=== PATIENT | male | born 1950 | race Caucasian/White ===

== ENCOUNTER → 2016-12-26 | Outpatient (CLI) | payer OTHER ==
[~2016-12-26] MED LIST: ADAL1KIT SQ; CITA10TA4 PO; FERR325T5 PO; OMEP20CA9 PO; TAMS0.4C38 PO
--- NOTE | 2016-12-26 17:23 | DIAGNOSTIC IMAGING REPORT ---
ULTRASOUND RIGHT LOWER EXTREMITY VENOUS CLINICAL HISTORY: Right leg pain and swelling. COMPARISON STUDY: No priors. TECHNIQUE: Real-time, grayscale, and color Doppler sonography of the deep veins of the right lower extremity was performed from the inguinal crease to the calf. Compression and augmentation were utilized. FINDINGS: There is no sonographic evidence of deep venous thrombosis identified in the right lower extremity. The common femoral, superficial femoral, and popliteal veins are patent and normally compressible. The greater saphenous vein and the profunda femoris vein at the junction with the common femoral vein are clear. The visualized calf veins are patent. IMPRESSION: There is no sonographic evidence of deep venous thrombosis identified in the right lower extremity. Electronically signed by: Scott Yepez M.D. 12/26/2016 5:21 PM Dictated Date/Time: 12/26/2016 5:21 PM
== END | disposition home or self-care (01) ==
LOC: C.ULTR 16:38
PROVIDERS: ATTEND Internal Medicine
DX: M79.661 Pain in right lower leg (principal)

== ENCOUNTER → 2017-01-08 | Outpatient (CLI) | payer OTHER ==
--- NOTE | 2017-01-08 15:51 | DIAGNOSTIC IMAGING REPORT ---
ULTRASOUND RIGHT LOWER EXTREMITY VENOUS CLINICAL HISTORY: Right leg pain and swelling. Palpable lump. COMPARISON STUDY: Right lower extremity venous ultrasound dated 12/26/2016. TECHNIQUE: Real-time, grayscale, and color Doppler sonography of the deep veins of the right lower extremity was performed from the inguinal crease to the calf. Compression and augmentation were utilized. FINDINGS: There is no sonographic evidence of deep venous thrombosis identified in the right lower extremity. The common femoral, superficial femoral, and popliteal veins are patent and normally compressible. The greater saphenous vein and the profunda femoris vein at the junction with the common femoral vein are clear. The visualized calf veins are patent. There is a small complex nonvascular collection identified in the right calf at the indicated site of interest. This measures 8.4 x 2.0 x 2.8 cm. Mild subcutaneous soft tissue edema is present in the calf. IMPRESSION: 1. There is no sonographic evidence of deep venous thrombosis identified in the right lower extremity. 2. There is a complex nonvascular fluid collection identified in the right calf at the indicated site of interest measuring 8.4 x 2.0 x 2.8 cm. The appearance is typical for a hematoma. Clinical follow-up to resolution is recommended. Electronically signed by: Scott Yepez M.D. 01/08/2017 3:49 PM Dictated Date/Time: 01/08/2017 3:48 PM
--- NOTE | 2017-01-08 15:52 | DIAGNOSTIC IMAGING REPORT ---
ARTERIAL DOPPLER ULTRASOUND OF THE RIGHT LOWER EXTREMITY CLINICAL HISTORY: Right leg pain and swelling. COMPARISON STUDY: No previous studies for comparison. FINDINGS: Brachial arm systolic pressures were 144 mmHg on the right and 139 mmHg on the left. Posterior tibial pressures were 134 mmHg on the right and 165 mmHg on the left. Dorsalis pedis pressures were measured 136 mmHg on the right and 153 mmHg on the left. This yields ankle arm indices of 0.9 for the right and 1.2 on the left. There is triphasic flow within the right common femoral, superficial femoral and popliteal arteries. There is biphasic flow within the anterior tibial. There is mixed biphasic and triphasic flow within the posterior tibial and peroneal. No high velocity jets were delineated. IMPRESSION: No evidence of hemodynamically significant right lower extremity arterial stenosis. Electronically signed by: Myles Yarbrough M.D. 01/08/2017 3:50 PM Dictated Date/Time: 01/08/2017 3:48 PM
--- NOTE | 2017-01-15 13:03 | CODING QUERY MEDICAL NECESSITY ---
SUPPORTING DIAGNOSIS NEEDED A supporting diagnosis is required for the test/procedure performed on this patient in order for us to be reimbursed by the patient's insurance. Please provide a supporting diagnosis for the following test/procedure listed below next to the test name along with your signature. *If there is no additional diagnosis for this patient that would support the following test/procedure please document that below next to the test/procedure. Test(s)/Procedure(s) that require a supporting diagnosis: * VENOUS DOPPLER LOWER EXTREMITY DIAGNOSIS: * DOS:01/08/17 Provider Signature: Date: Thank you Vicki Urbina Health Information Management Once completed, please kindly fax back to [phone] For questions please call [phone]
== END | disposition home or self-care (01) ==
LOC: C.ULTR 14:07
PROVIDERS: ATTEND Orthopaedic Surgery Sports Medicine
DX: M79.89 Other specified soft tissue disorders (principal); R93.8 Abnormal findings on diagnostic imaging of other specified body structures; M79.606 Pain in leg, unspecified

== ENCOUNTER 2020-03-24 09:26 | Inpatient (IN) ==
[2020-03-24 10:05] LABS: Basophils # (auto) 0.02 K/uL (0-0.2); Basophils % (auto) 0.2 %; Eosinophils # (auto) 0.18 K/uL (0-0.5); Eosinophils % (auto) 1.6 %; Hematocrit (blood only) 23.4 % (42-52); Immature Granulocytes % (auto) 0.9 %; Lymphocytes # (auto) 1.45 K/uL (1.2-3.4); Lymphocytes % (auto) 12.5 %; Mean Corpuscular Hemoglobin 25.5 pg (25-34); Mean Corpuscular Hgb Conc 29.9 g/dL (32-36); Mean Corpuscular Volume 85.4 fL (80-100); Mean Platelet Volume 10.1 fL (7.4-10.4); Monocytes # (auto) 0.61 K/uL (0.11-0.59); Monocytes % (auto) 5.3 %; Neutrophils # (auto) 9.23 K/uL (1.4-6.5); Neutrophils % (auto) 79.5 %; Nucleated RBC # (auto) 0.06 K/uL (0-0); Nucleated RBC % (auto) 0.5 %; Platelet Count 163 K/uL (130-400); RDW Coefficient of Variation 18.2 % (11.5-14.5); RDW Standard Deviation 51.2 fL (36.4-46.3); Red Blood Count 2.74 M/uL (4.7-6.1); White Blood Count 11.59 K/uL (4.8-10.8)
[2020-03-24 10:21] LABS: Albumin Level 2.8 gm/dl (3.4-5.0); BUN Creatinine Ratio 29.7 (10-20); Calcium 8.6 mg/dl (8.5-10.1); Creatinine Clr Calc Pharmacy 40.9 ml/min; Est GFR (African American) 44.7; Est GFR (Non-African American) 38.6; Potassium 4.1 mmol/L (3.5-5.1)
[2020-03-24 10:24] LABS: Albumin Globulin Ratio 0.6 (0.9-2); Bilirubin,Total 1.2 mg/dl (0.2-1); Globulin 5.1 gm/dl (2.5-4.0); Total Protein 7.9 gm/dl (6.4-8.2)
[2020-03-24 10:25] LABS: Polychromasia 1+; Tear Drop Cells 1+
[2020-03-24 10:26] LABS: iSTAT Creatinine 1.7 mg/dl (0.6-1.3); iSTAT Hemoglobin 7.1 g/dl (14.0-18.0); iSTAT Ionized Calcium 1.22 mmol/l (1.12-1.32); iSTAT Potassium 4.1 mmol/L (3.3-5.0)
[2020-03-24 10:29] LABS: INR 1.1 (0.9-1.1); Partial Thromboplastin Ratio 0.8; Partial Thromboplastin Time 22.4 Seconds (21.0-31.0); Prothrombin Time 11.9 Seconds (9.0-12.0)
--- NOTE | 2020-03-24 10:44 | Emergency Department Note ---
History of Present Illness General Chief complaint: Referred by Doctor Stated complaint: SOB, LACK OF ENERGY, IRON LOW Source: patient Mode of arrival: ambulatory Limitations: no limitations History of Present Illness Provider complaint: "my iron is low" Onset (ago): week(s) 3 This 69-year-old male patient with significant past medical history of esophageal varices and [place] presents to the emergency department today, ambulatory, as a referral from his PCP for evaluation of anemia. The patient states over the past several weeks, his PCP has been monitoring his blood counts and iron levels and have noted them to be dropping. He states he was contacted and advised that his hemoglobin was "less than 6" and told to come to the ED for a blood transfusion. The patient reports dyspnea with exertion for the past several weeks and excessive fatigue. He states 1 week ago while taking the trash out, he noticed significant palpitations, but these resolved with rest. The patient states he is unclear of the etiology of the anemia and has never had a blood transfusion before. He states he was supposed to "do a stool test", but has not done this yet. He does report history of esophageal varices, but denies any hematemesis or hemoptysis at this time. The patient states his PCP has been adjusting his medications, but he is unclear of which medications are being adjusted at this time. Patient denies any chest pain, nausea, vomiting, abdominal pain, melena, hematochezia, diarrhea, constipation, or other associated symptoms. He denies fever or recent illness. Home Medications Home Medications Medication Instructions Recorded Confirmed Type furosemide [Lasix] 20 mg PO QAM 02/04/20 03/24/20 History spironolactone [Aldactone] 50 mg PO QAM 02/04/20 03/24/20 History adalimumab [Humira Pen] 40 mg SUBCUT UD 03/24/20 03/24/20 History cholecalciferol (vitamin D3) 25 mcg PO HS 03/24/20 03/24/20 History [Vitamin D3] citalopram [Celexa] 10 mg PO QAM 03/24/20 03/24/20 History ferrous sulfate 325 mg PO BID 03/24/20 03/24/20 History glimepiride [Amaryl] 2 mg PO BID 03/24/20 03/24/20 History lactulose 10 g PO TID PRN 03/24/20 03/24/20 History rvizafnrtmsd-dcyefmta-ugccub 1 tab PO HS 03/24/20 03/24/20 History [Multivitamin 50 Plus] omeprazole 40 mg PO QAM 03/24/20 03/24/20 History propranolol 40 mg PO BID 03/24/20 03/24/20 History Allergies Allergy/AdvReac Type Severity Reaction Status Date / Time No Known Allergies Allergy Mild Verified 03/24/20 11:35 Past Med/Surg History Medical History Cirrhosis (Acute) 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 Esophageal varices (Acute) GAVE (gastric antral vascular ectasia) GERD (gastroesophageal reflux disease) History of abdominal paracentesis (Acute) Hypertension (Acute) Psoriasis (Acute) T2DM (type 2 diabetes mellitus) Surgical History (Updated 03/24/20 @ 13:03 by Maura Gastelum PA-C) History of colonoscopy with polypectomy Last in 2015 History of esophagogastroduodenoscopy (EGD) last 06/2019 revealed grade 2 esophageal varices, grade 1 gastric varices History of tonsillectomy and adenoidectomy (Acute) Family History Father Colorectal cancer, Onset Age: 63 Mother Lung cancer 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 Preferred Language: Icelandic Communication Ability: Effective Contact Assembler Required: No Beliefs That Will Affect Care: None Current Living Situation: Spouse Other Information That Helps Us Care for You: No Feels Safe at Home: Yes Safety Concerns: Feels Safe At This Time Smoking Status: Never smoker Do You Dip or Chew Tobacco: No ; Second Hand Exposure: No ; Tobacco Cessation Education Requested by Patient: No Hx Alcohol Use: No Hx Substance Use: No Review of Systems A total of 10 systems reviewed and were otherwise negative Physical Exam Vital Signs Vital Signs - 24 hr 03/24/20 09:29 03/24/20 10:43 Temperature 36.6 C Temperature Source Oral Pulse Rate 60 57 L Pulse Rate [Apical] 57 L Pulse Rhythm Regular Pulse Rhythm [Apical] Regular Pulse Strength [Apical] Normal Respiratory Rate 18 18 Respiratory Effort / Characteristics Non-Labored Spontaneous Non-Labored Spontaneous Respiratory Depth Normal Respiratory Pattern Regular Blood Pressure 105/63 Blood Pressure [Right Arm] 116/61 Blood Pressure Mean 77 Blood Pressure Mean [Right Arm] 79 Blood Pressure Position [Right Arm] Sitting Pulse Oximetry 100 98 Oxygen Delivery Method Room Air Room Air Sepsis Recent Fever Within 48 Hours No Sepsis New/Unexplained Change in Mental Status No Sepsis Action Taken by Nursing No Action Required VITALS: Vitals are noted on the nurse's note and reviewed by myself. Patient has not tachypneic, tachycardic, or hypoxic. Normal blood pressure. GENERAL: This is a 69-year-old white male, in no acute distress, nondiaphoretic, well-developed well-nourished. SKIN: The skin was pale, but without rashes, erythema, edema, or bruising. There is no tenting of the skin. Capillary refill less than 2 seconds. HEAD: Normocephalic atraumatic. EYES: Pupils equal round and reactive to light and accommodation. Conjunctivae without injection, sclerae without icterus. Extraocular movements intact. NOSE: Patent, turbinates without inflammation or discharge. No sinus tenderness. MOUTH: Mucous membranes moist. Tonsils are not enlarged. Pharynx without eryt rashaad or exudate. Uvula midline. Airway patent. Tongue does not deviate. NECK: Supple without nuchal rigidity. No lymphadenopathy. HEART: Regular rate and rhythm without murmurs gallops or rubs. LUNGS: Clear to auscultation bilaterally without wheezes, rales or rhonchi. No retractions or accessory muscle use. ABDOMEN: Distended. Positive bowel sounds x 4. Normal tympanic percussion. Soft, nontender, without masses or organomegaly. No guarding or rebound tenderness. VITAL SIGNS - Vital signs and nursing notes were reviewed. RECTAL - No rectal fissures. No skin tags appreciated. No active bleeding. A sterile, water-soluble lubricant was applied to the examiner's finger prior to internal exam. No rectal vault tenderness. No rectal masses, but prostate is enlarged. No fecal impaction. Stool Guaiac Test: Hemoccult positive. MUSCULOSKELETAL: No muscle atrophy, erythema, or edema noted. Full range of motion without joint tenderness in all extremities. No tenderness to palpation. Normal gait. Strength 5/5 throughout. NEURO: Patient was alert and oriented to person place and time. Normal sensation to light and sharp touch. No focal neurological deficits. Course Course The patient was seen and evaluated as above. An order was placed for continuous cardiac monitoring. The monitor shows a normal sinus rhythm at a rate of 54 bpm. IV access obtained, labs drawn. Imaging performed and reviewed by myself and radiologist as noted. Labs reviewed by myself. I discussed the case with my attending physician. I discussed the case with the manager maritime. I then discussed the case with the [facility] hospitalist. They did agree to accept the patient for admission for GI bleed. I discussed the findings and recommendation with the patient at bedside. Please see hospitalist dictation regarding ongoing management care of this patient. Administered Medications Pantoprazole Sodium 40 mg/ (Dextrose) 100 mls @ 20 mls/hr IV Q5H JODI Stop: 04/23/20 11:29 Last Admin: 03/24/20 12:04 Dose: 8 mg/hr, 20 mls/hr Documented by: [id number] Spironolactone (Aldactone) 50 mg PO QAM JODI Stop: 04/23/20 14:27 Last Admin: 03/24/20 15:32 Dose: 50 mg Documented by: [id number] Discontinued Medications Acetaminophen (Tylenol) 650 mg PO PRE-TREAT ONE Stop: 03/24/20 14:29 Last Admin: 03/24/20 15:31 Dose: 650 mg Documented by: [id number] Diphenhydramine HCl (Benadryl Capsule) 25 mg PO PRE-TREAT ONE Stop: 03/24/20 14:29 Last Admin: 03/24/20 15:32 Dose: 25 mg Documented by: [id number] Medical Decision Making Differential Diagnosis Etiologies such as appendicitis, diverticulitis, GI bleed, anemia, obstruction, inflammatory bowel disease, infections, genitourinary, perforated viscus, as well as others were entertained. Medical Records Attestation: I reviewed the patient's medical records. [facility] medical records reviewed. Home Medications Current Medication List: was personally reviewed by me Laboratory Data Hemoccult positive. Patient is anemic with a hemoglobin of 7.0. White blood cells mildly elevated at 11,000. Platelet count 163. Coags normal. Creatinine elevated at 1.76. Hepatic function electrolytes without significant ab normality. Result diagrams: 03/24/20 09:54 03/24/20 09:54 Lab Results 03/24/20 03/24/20 03/24/20 Range/Units 09:54 09:54 09:54 WBC 11.59 H (4.8-10.8) K/uL RBC 2.74 L (4.7-6.1) M/uL Hgb 7.0 L (14.0-18.0) g/dL POC Hgb (14.0-18.0) g/dl Hct 23.4 L (42-52) % POC Hct (42-52) % MCV 85.4 (80-100) fL MCH 25.5 (25-34) pg MCHC 29.9 L (32-36) g/dL RDW Std Deviation 51.2 H (36.4-46.3) fL RDW Coeff of Violetta 18.2 H (11.5-14.5) % Plt Count 163 (130-400) K/uL MPV 10.1 (7.4-10.4) fL Immature Gran % (Auto) 0.9 % Neut % (Auto) 79.5 % Lymph % (Auto) 12.5 % [place] % (Auto) 5.3 % Eos % (Auto) 1.6 % Baso % (Auto) 0.2 % Immature Gran # (Auto) 0.10 H (0.00-0.02) K/uL Neut # (Auto) 9.23 H (1.4-6.5) K/uL Lymph # (Auto) 1.45 (1.2-3.4) K/uL [place] # (Auto) 0.61 H (0.11-0.59) K/uL Eos # (Auto) 0.18 (0-0.5) K/uL Baso # (Auto) 0.02 (0-0.2) K/uL Absolute Nucleated RBC 0.06 H (0-0) K/uL Nucleated RBC % (auto) 0.5 % Polychromasia 1+ Tear Drop Cells 1+ PT 11.9 (9.0-12.0) Seconds INR 1.1 (0.9-1.1) APTT 22.4 (21.0-31.0) Seconds PTT Ratio 0.8 POC Sodium (135-144) mmol/L Sodium 139 (136-145) mmol/L POC Potassium (3.3-5.0) mmol/L Potassium 4.1 (3.5-5.1) mmol/L POC Chloride (101-112) mmol/L Chloride 111 H (98-107) mmol/L Carbon Dioxide 21 (21-32) mmol/L POC Total CO2 (24-31) mEq/l Anion Gap 7.0 (3-11) POC Anion Gap (16-25) mmol/L POC BUN (7-18) mg/dl BUN 52 H (7-18) mg/dl Creatinine 1.76 H (0.6-1.4) mg/dl POC Creatinine (0.6-1.3) mg/dl Est Cr Clr Drug Dosing 40.9 ml/min Est GFR ( Amer) 44.7 Est GFR (Non-Af Amer) 38.6 BUN/Creatinine Ratio 29.7 H (10-20) Glucose 109 H (70-99) mg/dl POC Glucose (other) (70-99) mg/dl Calcium 8.6 (8.5-10.1) mg/dl POC Ioniz Calcium Meryl (1.12-1.32) mmol/l Total Bilirubin 1.2 H (0.2-1) mg/dl AST 25 (15-37) U/L ALT 29 (12-78) U/L Alkaline Phosphatase 136 H (45-117) U/L Total Protein 7.9 (6.4-8.2) gm/dl Albumin 2.8 L (3.4-5.0) gm/dl Globulin 5.1 H (2.5-4.0) gm/dl Albumin/Globulin Ratio 0.6 L (0.9-2) POC Stool Occult Blood (Negative) Blood Type Antibody Screen Crossmatch 03/24/20 03/24/20 03/24/20 Range/Units 10:08 10:12 10:43 WBC (4.8-10.8) K/uL RBC (4.7-6.1) M/uL Hgb (14.0-18.0) g/dL POC Hgb 7.1 L (14.0-18.0) g/dl Hct (42-52) % POC Hct 21 L (42-52) % MCV (80-100) fL MCH (25-34) pg MCHC (32-36) g/dL RDW Std Deviation (36.4-46.3) fL RDW Coeff of Violetta (11.5-14.5) % Plt Count (130-400) K/uL MPV (7.4-10.4) fL Immature Gran % (Auto) % Neut % (Auto) % Lymph % (Auto) % [place] % (Auto) % Eos % (Auto) % Baso % (Auto) % Immature Gran # (Auto) (0.00-0.02) K/uL Neut # (Auto) (1.4-6.5) K/uL Lymph # (Auto) (1.2-3.4) K/uL [place] # (Auto) (0.11-0.59) K/uL Eos # (Auto) (0-0.5) K/uL Baso # (Auto) (0-0.2) K/uL Absolute Nucleated RBC (0-0) K/uL Nucleated RBC % (auto) % Polychromasia Tear Drop Cells PT (9.0-12.0) Seconds INR (0.9-1.1) APTT (21.0-31.0) Seconds PTT Ratio POC Sodium 139 (135-144) mmol/L Sodium (136-145) mmol/L POC Potassium 4.1 (3.3-5.0) mmol/L Potassium (3.5-5.1) mmol/L POC Chloride 109 (101-112) mmol/L Chloride (98-107) mmol/L Carbon Dioxide (21-32) mmol/L POC Total CO2 19 L (24-31) mEq/l Anion Gap (3-11) POC Anion Gap 17.0 (16-25) mmol/L POC BUN 46 H (7-18) mg/dl BUN (7-18) mg/dl Creatinine (0.6-1.4) mg/dl POC Creatinine 1.7 H (0.6-1.3) mg/dl Est Cr Clr Drug Dosing ml/min Est GFR ( Amer) Est GFR (Non-Af Amer) BUN/Creatinine Ratio (10-20) Glucose (70-99) mg/dl POC Glucose (other) 114 H (70-99) mg/dl Calcium (8.5-10.1) mg/dl POC Ioniz Calcium Meryl 1.22 (1.12-1.32) mmol/l Total Bilirubin (0.2-1) mg/dl AST (15-37) U/L ALT (12-78) U/L Alkaline Phosphatase (45-117) U/L Total Protein (6.4-8.2) gm/dl Albumin (3.4-5.0) gm/dl Globulin (2.5-4.0) gm/dl Albumin/Globulin Ratio (0.9-2) POC Stool Occult Blood Positive A (Negative) Blood Type O Positive Antibody Screen NEGATIVE Crossmatch See Detail Imaging Data Radiologist's Impression: XR chest 1V portable CLINICAL HISTORY: shortness of breath dyspnea COMPARISON STUDY: 07/22/2014 FINDINGS: The bones soft tissues and hemidiaphragms are normal. The cardiomedias tinal silhouette is normal. The lungs are clear. The pulmonary vasculature is normal. IMPRESSION: Negative chest. ACT 112: Negative or not required by law. The above report was generated using voice recognition software. It may contain grammatical, syntax or spelling errors. Electronically signed by: Kevin Padilla M.D. 03/24/2020 10:55 AM ECG Data Attestation: I personally reviewed and interpreted this ECG as follows: Indication: + SOB/dyspnea Rate (beats per minute): 58 Rhythm: + sinus bradycardia ECG [place]: + Normal ECG ST segments: no ST depression, no ST elevation and no T-wave inversions ECG Findings: + PVCs Blood Pressure Blood Pressure Findings: Normal blood pressure MDM Narrative This 69-year-old male patient presents the emergency department today for evaluation of shortness of breath and anemia. The patient is currently being worked up as an outpatient for anemia. He does have a past medical history of esophageal varices and upper GI bleed. The patient did have a hemoglobin yesterday of 6.8. He was referred to the ED at that point, but states he did not want to be stuck here for several hours last evening, so decided to wait until today. He presents today with a hemoglobin of 7. Given his history and symptoms, as well as positive Hemoccult stool, I did recommend admission for further evaluation and management of his symptoms. The patient was agreeable. He was evaluated by the hospitalist. He was started on IV Protonix drip while here in the ED. Please see hospitalist dictation regarding ongoing management care of this patient. The chart was completed utilizing Dragon Speech voice recognition software. Grammatical errors, random word insertions, pronoun errors, and incomplete sentences are an occasional consequence of this system due to software limitations, ambient noise, and hardware issues. Any formal questions or concerns about the content, text, or information contained within the body of this dictation should be directly addressed to the provider for clarification. Impression & Plan Symptomatic anemia, Upper GI bleed, GERD (gastroesophageal reflux disease), Shortness of breath Discharge Plan Visit Data *Final* Discharge Date/Time: 03/24/20 13:44 Chief Complaint: Referred by Doctor Stated Complaint: SOB, LACK OF ENERGY, IRON LOW ED Provider: Salvador Aly ED Midlevel Provider: Bre Mcconnell Discharge Problem: Symptomatic anemia, Upper GI bleed, GERD (gastroesophageal reflux disease), Shortness of breath Patient Disposition: Admitted As Inpatient Discharge Instructions Interventions: ED Discharge Assessment Last Done: 03/24/20 13:44 Discharge Problem: GERD (gastroesophageal reflux disease) Qualifiers: Esophagitis presence: esophagitis presence not specified Qualified Code(s): K21.9 - Gastro-esophageal reflux disease without esophagitis
--- NOTE | 2020-03-24 10:56 | XRay Report ---
XR chest 1V portable CLINICAL HISTORY: shortness of breath dyspnea COMPARISON STUDY: 07/22/2014 FINDINGS: The bones soft tissues and hemidiaphragms are normal. The cardiomediastinal silhouette is n ormal. The lungs are clear. The pulmonary vasculature is normal. IMPRESSION: Negative chest. ACT 112: Negative or not required by law. The above report was generated using voice recognition software. It may contain grammatical, syntax or spelling errors. Electronically signed by: Kevin Padilla M.D. 03/24/2020 10:55 AM
[2020-03-24] MEDS: PANTOprazole 40 MG in DEXTROSE 5% 100 ML IV SCH ×3 (12:04→21:04)
--- NOTE | 2020-03-24 13:06 | Gastrointestinal Consultation ---
Date of Consultation March 24, 2020 Assessment & Plan (1) Cirrhosis: Would hold diuretics during admission. Restart OP diuretics: furosemide 40/spironolactone 100mg daily (prior to dc). Low salt diet. Present on Admission?: Yes (2) GERD (gastroesophageal reflux disease): Present on Admission?: Yes (3) Anemia: Acute on chronic anemia with occult positive stool w/o gross bleeding. Blood loss may represent slow bleeding from varices (unlikely) or GAVE but more likely represents bone marrow suppression associated with cirrhosis. EGD 03/25 to r/o active GI bleeding. Addendum - EGD completed w/o evidence of bleeding. Supervising Physician Co-Signing Physician Notes Late entry: Patient was seen and examined on 03/25 with JEFF Kaminski whose note reflects our findings and plan. History of Present Illness Reason for Consultation: Anemia Requesting Physician: Dr. Delaney Attending Physician: Dr. Delaney History of Present Illness Mr. Luis Hale is a 69 yr old male pt of Dr. 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 He noticed palpitations and exertional SOB beginning about a week ago and eventually presented to his PCP where Hb was 6. 8 yesterday (baseline is approx 10). He was directed to present to the ED for eval. Regarding hx of FOFANA cirrhosis, dx'ed during a GI bleed in 2013, since then no further bleeding episodes. he follows with [facility] hepatology and due to low MELD, has not been evaluated for liver transplant. He has ascites, with hx of two paracenteses: Sep 2019 4 L and 02/04/20 5.5Ls removed. He is maintained on furosemide 40/spironlactone 100 daily. He has a hx of hepatic encephalopathy, maintained on lactulose and Xifaxan. On arrival, in the ED, Hb 7.0, Hct 23.4, BUN is elevated at 52 but Cr is also high at 1.76. (baseline 1.4). He denies any CP. Currently no SOB while resting. He has moderately large, non taunt ascites. He denies any black, sticky, or loose BMs and denies any nausea/vomiting. Occult stool in the ED was (+). His most recent EGD was in June [address] Lopez with findings of: Grade II esophageal varices. - Z-line regular, 42 cm from the incisors. - Type 1 gastroesophageal varices (GOV1, esophageal varices which extend along the lesser curvature). - A few gastric polyps. - Gastritis. - Normal examined duodenum. - No specimens collected. Most recent colonoscopy was 05/03/[address] Lopez for hx of polyps with findings of: - One 2 mm polyp in the cecum. Resected and retrieved. - Diverticulosis in the sigmoid colon. - Otherwise normal to the terminal ileum, with retroflexed views of the rectum. Allergies Allergy/AdvReac Type Severity Reaction Status Date / Time No Known Allergies Allergy Mild Verified 03/24/20 11:35 Home Medications Home Medications Medication Instructions Recorded Confirmed Type furosemide [Lasix] 20 mg PO QAM 02/04/20 03/24/20 History spironolactone [Aldactone] 50 mg PO QAM 02/04/20 03/24/20 History Humira Pen 40 mg SUBCUT UD 03/24/20 03/24/20 History Multivitamin 50 Plus 1 tab PO HS 03/24/20 03/24/20 History cholecalciferol (vitamin D3) 25 mcg PO HS 03/24/20 03/24/20 History [Vitamin D3] citalopram [Celexa] 10 mg PO QAM 03/24/20 03/24/20 History ferrous sulfate 325 mg PO BID 03/24/20 03/24/20 History glimepiride [Amaryl] 2 mg PO BID 03/24/20 03/24/20 History lactulose 10 g PO TID PRN 03/24/20 03/24/20 History omeprazole 40 mg PO QAM 03/24/20 03/24/20 History propranolol 40 mg PO BID 03/24/20 03/24/20 History amoxicillin-pot clavulanate 1 tab PO BID #6 tab 03/28/20 Rx [Augmentin] Patient History Medical History Cirrhosis (Acute) 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 Esophageal varices (Acute) GAVE (gastric antral vascular ectasia) GERD (gastroesophageal reflux disease) (Acute) History of abdominal paracentesis (Acute) Hypertension (Acute) Psoriasis (Acute) T2DM (type 2 diabetes mellitus) Surgical History History of colonoscopy with polypectomy Last in 2015 History of esophagogastroduodenoscopy (EGD) last 06/2019 revealed grade 2 esophageal varices, grade 1 gastric varices History of tonsillectomy and adenoidectomy (Acute) Family History Father Colorectal cancer, Onset Age: 63 Mother Lung cancer 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 Preferred Language: Estonian Communication Ability: Effective Horticultural Farmer Required: No Beliefs That Will Affect Care: None Current Living Situation: Spouse Other Information That Helps Us Care for You: No Feels Safe at Home: Yes Safety Concerns: Feels Safe At This Time Smoking Status: Never smoker Do You Dip or Chew Tobacco: No ; Second Hand Exposure: No ; Tobacco Cessation Education Requested by Patient: No Hx Alcohol Use: No Hx Substance Use: No Review of Systems Review of Systems: ROS: Gen: + weakness, No fevers, No weight loss Eyes: No eye redness, or pain, no recent vision changes Resp: + exertional SOB, insidious onset, became remarkable a week ago, no cough Cardio: No palpitations/irregular beats, no chest pain GI: + slowly increasing abdominal girth, no abdominal pain, no nausea/vomiting : Denies pain on urination Skin: No jaundice, itching or new rashes Physical Exam Constitutional: WD/WN, vitals as above Eyes: PERRL, conjunctivae normal, anicteric sclerae ENMT: external ear and nose normal, oropharynx normal Neck: trachea midline, no thyromegaly Respiratory: normal respiratory effort, lungs clear to auscultation Cardiovascular: RRR, no murmur, no edema Gastrointestinal (Abdomen): normal bowel sounds, soft, nontender, no hepatosplenomegaly Inspection/Auscultation: + abdomen distended (moderate ascites) Skin: no rashes, warm and dry no jaundice Lymphatic: no cervical or axillary lymphadenopathy Results & Data ([facility]) Vital Signs (Past 12 Hours) Vital Signs Temp Pulse Pulse Resp BP BP Pulse Ox 03/24/20 10:43 57 L 57 L 18 116/61 98 03/24/20 09:29 36.6 C 60 18 105/63 100 (1) GERD (gastroesophageal reflux disease) Esophagitis presence: esophagitis presence not specified Qualified Code(s): K21.9 - Gastro-esophageal reflux disease without esophagitis
--- NOTE | 2020-03-24 13:14 | History & Physical Report ---
Date of Service March 24, 2020 Assessment & Plan (1) Symptomatic anemia: This is a 69-year-old male with significant PMH of Dalton cirrhosis, esophageal and gastric varices, GAVE, T2DM, CKD stage III, GERD, psoriasis presents to the ED at the referral of PCP. In ED he remained hemodynamically stable. His hemoglobin and hematocrit was 7.0 and 23.4, WBC 11.59, platelet 163, BUN 52, creatinine 1.76. His stool was positive for blood via FOBT. He received IV protonix in ED. Pt had labwork in outpt setting 03/16 hgb 7.1 and iron studies which revealed significant iron deficiency anemia (ferritin 7.6, iron 29, total saturation 7%, TIBC 413) Patient is not exhibiting any hematemesis and does not report any melena or hematochezia, although his FOBT was positive GI has seen and evaluated patient in ED. Admit to medical telemetry consult GI - appreciate their recommendations Tranfuse 2 units PRBC with 40mg IV lasix in between Continue protonix 40mg IV BID Discussed Ocretreotide with GI - given no findings of hematemesis/chezia likely not an acute bleed continue iron supplementation - consider iron infusion as outpt repeat H&H post transfusion (2) Cirrhosis: DALTON Cirrhosis Follows [facility] continue lasix, aldactone (recently decreased both on 03/16 from Lasix 40mg to 20mg and Aldactone 100mg to 50mg) Takes lactulose prn, no s/sx of hepatic encephalopathy Consider increase in diuretic wants post transfusion given increased abd girth and ascites (3) Esophageal varices: continue propranolol GI on board (4) GAVE (gastric antral vascular ectasia): continue propranolol GI on board (5) T2DM (type 2 diabetes mellitus): A1C 8.1 on 03/16 on glimepride at home hold and place on novolog SS per protocol if BSG consistently > 180 will add long acting insulin (6) CKD (chronic kidney disease) stage 3, GFR 30-59 ml/min: baseline Cr 1.6-1.8 pt with pre renal insufficiency on CKD likely due to volume depletion 2/2 to Anemia 2 unit PRBC ordered with lasix in between follow bmp (7) DVT prophylaxis: SCD/TEDS Disposition: admit to med tele Follow up: PCP Dr. Hill upon discharge along with appropriate GI follow up Pt was seen and examined in collaboration with Dr. Delaney, please see addendum History of Present Illness Chief Complaint: Referred by PCP. Primary Care Provider: Raulito Hill DO This is a 69-year-old male with significant PMH of [place] cirrhosis, esophageal and gastric varices, GAVE, T2DM, CKD stage III, GERD, psoriasis presents to the ED at the referral of PCP. Patient had lab work done in the outpatient setting yesterday which revealed hemoglobin of 6.8. He was urged to come to ED for further evaluation. Of significance he was last seen by PCP on 03/16 secondary to right toe pain. He is he was diagnosed with gout and placed on steroid taper. At that time he had a CBC which revealed hemoglobin of 7.1. He had repeat CBC yesterday for hemoglobin of 6.8. Of significance over the past 2 to 3 weeks he has noted increasing shortness of breath with exertion, fatigue, palpitations and chest heaviness with exertion. He denies any lightheadedness, dizziness, syncope, nausea, emesis, hematemesis, abdominal pain, melena, hematochezia. He states he did have a paracentesis approximately 6 weeks ago. Over the past week he has noted increase in his abdominal girth. He associates this with a decrease in his diuretics 1 week ago. His Lasix was reduced from 40 mg daily to 20 mg and aldactone was reduced to 50 mg daily. He states he has 3 BM daily and does not take laculose due to side effects. He will if he does not have 3 BM. His appetite has otherwise been fair. Denies and weight loss, edema, f/c/s, recent resp sx. Denies prior hx of transfusion. In ED he remained hemodynamically stable. His hemoglobin and hematocrit was 7.0 and 23.4, WBC 11.59, platelet 163, BUN 52, creatinine 1.76. His stool was positive for blood via FOBT. He received IV protonix in ED. Allergies Allergy/AdvReac Type Severity Reaction Status Date / Time No Known Allergies Allergy Mild Verified 03/24/20 11:35 Home Medications Home Medications Medication Instructions Recorded Confirmed Type furosemide [Lasix] 20 mg PO QAM 02/04/20 03/24/20 History spironolactone [Aldactone] 50 mg PO QAM 02/04/20 03/24/20 History adalimumab [Humira Pen] 40 mg SUBCUT UD 03/24/20 03/24/20 History cholecalciferol (vitamin D3) 25 mcg PO HS 03/24/20 03/24/20 History [Vitamin D3] citalopram [Celexa] 10 mg PO QAM 03/24/20 03/24/20 History ferrous sulfate 325 mg PO BID 03/24/20 03/24/20 History glimepiride [Amaryl] 2 mg PO BID 03/24/20 03/24/20 History lactulose 10 g PO TID PRN 03/24/20 03/24/20 History [id number] 1 tab PO HS 03/24/20 03/24/20 History [Multivitamin 50 Plus] omeprazole 40 mg PO QAM 03/24/20 03/24/20 History propranolol 40 mg PO BID 03/24/20 03/24/20 History Past Med/Surg History Medical History Cirrhosis (Acute) 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 Esophageal varices (Acute) GAVE (gastric antral vascular ectasia) GERD (gastroesophageal reflux disease) History of abdominal paracentesis (Acute) Hypertension (Acute) Psoriasis (Acute) T2DM (type 2 diabetes mellitus) Surgical History (Updated 03/24/20 @ 13:03 by Maura Gastelum PA-C) History of colonoscopy with polypectomy Last in 2015 History of esophagogastroduodenoscopy (EGD) last 06/2019 revealed grade 2 esophageal varices, grade 1 gastric varices History of tonsillectomy and adenoidectomy (Acute) Family History Father Colorectal cancer, Onset Age: 63 Mother Lung cancer 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 Preferred Language: [place] Communication Ability: Effective Professor Of Violin Required: No Beliefs That Will Affect Care: None Current Living Situation: Spouse Other Information That Helps Us Care for You: No Feels Safe at Home: Yes Safety Concerns: Feels Safe At This Time Smoking Status: Never smoker Do You Dip or Chew Tobacco: No ; Second Hand Exposure: No ; Tobacco Cessation Education Requested by Patient: No Hx Alcohol Use: No Hx Substance Use: No Review of Systems Review of Systems: All systems reviewed & are unremarkable except as noted in HPI & below Physical Exam Physical Exam: Constitutional: WD/WN, Pale, M, vitals as above, NAD, sitting up in bed, pleasant, conversing easily Head: Normocephalic, Atraumatic Eyes: PERRL, conjunctivae normal, anicteric sclerae ENMT: external ear and nose normal, oropharynx normal Neck: trachea midline, no thyromegaly normal visual inspection Respiratory: normal respiratory effort, lungs clear to auscultation, no wheeze, rales, rhonchi. Normal insp/exp effort, no accessory muscle use Cardiovascular: RRR, 2/6 WINTER noted cardiac apex, no edema Vessels: no JVD or carotid bruit Chest: normal inspection of chest Abdomen:+distended abdomen 2/2 to ascites, protuberant, normal bowel sounds, soft, nontender, Musculoskeletal: no cyanosis or clubbing, extremities motor strength 5/5 Skin: no rashes, warm and dry moderate turgor , cap refill > 2 Neurologic: PERRL, EOMI, accommodation nl, no face palsy, no dysarthria CN's II-XI intact bilaterally and moves all extremities Psychiatric: A+Ox3, euthymic affect Lymphatic: no cervical or axillary lymphadenopathy : deferred Results & Data Results & Data ([facility]) Vital Signs (Past 12 Hours) Vital Signs Temp Pulse Pulse Resp BP BP Pulse Ox 03/24/20 10:43 57 L 57 L 18 116/61 98 03/24/20 09:29 36.6 C 60 18 105/63 100 Laboratory Results Short CBC 03/24/20 03/24/20 Range/Units 09:54 09:54 WBC 11.59 H (4.8-10.8) K/uL Hgb 7.0 L (14.0-18.0) g/dL Hct 23.4 L (42-52) % Plt Count 163 (130-400) K/uL BUN 52 H (7-18) mg/dl BMP 03/24/20 09:54 Sodium 139 Potassium 4.1 Chloride 111 H Carbon Dioxide 21 BUN 52 H Creatinine 1.76 H Glucose 109 H Calcium 8.6 Liver Function 03/24/20 Range/Units 09:54 Total Bilirubin 1.2 H (0.2-1) mg/dl AST 25 (15-37) U/L ALT 29 (12-78) U/L Alkaline Phosphatase 136 H (45-117) U/L Albumin 2.8 L (3.4-5.0) gm/dl Diagnostic Findings CXR: IMPRESSION: Negative chest. Medications Administered Pantoprazole Sodium 40 mg/ (Dextrose) 100 mls @ 20 mls/hr IV Q5H JODI Stop: 04/23/20 11:29 Last Admin: 03/24/20 12:04 Dose: 8 mg/hr, 20 mls/hr Documented by: [id number] ECG Rate (beats per minute): 58 Rhythm: sinus bradycardia Findings: + PVC Code Status & VTE Plan Code Status Full Code VTE Prophylaxis Plan VTE Prophylaxis will be ordered: Yes Reason for no VTE drug order: Contraindicated Supervising Physician Co-Signing Physician Notes I have seen and examined the patient and have discussed the case with the provider above. I agree with the assessment and plan as stated with the following exceptions. On physical, the patient was pale. He reports feeling dyspneic on exertion for a few weeks. Abdomen protuberant and nontender. Agree with plan as above and GI' plan. Gabriela Delaney
[2020-03-24] MEDS ORDERED: DEXTROSE 50% 50 ML SYRINGE IV PRN (14:28)
[2020-03-24] MEDS ORDERED: GLUCOSE 10 TABS/TUBE PO PRN (14:28)
[2020-03-24] MEDS ORDERED: ACETAMINOPHEN 325 MG TAB PO ONE (14:28)
[2020-03-24] MEDS ORDERED: CARBOHYDRATES FOR HYPOGLYCEMIA PO PRN (14:28)
[2020-03-24] MEDS ORDERED: POLYETHYLENE (MIRALAX) 17 GM PACK PO PRN (14:28)
[2020-03-24] MEDS ORDERED: GLUCAGON FOR INJ 1 MG VIAL SQ PRN (14:28)
[2020-03-24] MEDS ORDERED: ONDANSETRON INJ 2 MG/ML 2 ML VIAL IV PRN (14:28)
[2020-03-24] MEDS ORDERED: FUROSEMIDE 40 MG in SYRINGE 0 ML IV ONE (14:28)
[2020-03-24] MEDS ORDERED: GLUCOSE 40% GEL 15 GM TUBE PO PRN (14:28)
[2020-03-24] MEDS ORDERED: SODIUM CHLORIDE 0.9% 250 ML IV PRN ×3 (14:28)
--- NOTE | 2020-03-24 14:32 | Electrocardiogram Report ---
Test Reason : Blood Pressure : / mmHG Vent. Rate : 058 BPM Atrial Rate : 058 BPM P-R Int : 168 ms QRS Dur : 086 ms QT Int : 472 ms P-R-T Axes : 038 019 021 degrees QTc Int : 463 ms Sinus bradycardia with occasional Premature ventricular complexes Otherwise normal ECG When compared with ECG of 22-JUL-2014 13:40, Premature ventricular complexes are now Present Nonspecific T wave abnormality now evident in Inferior leads Nonspecific T wave abnormality, improved in Anterior leads Confirmed by Jose Ramon Rizvi ([id number]) on 03/24/2020 2:32:38 PM Referred By: REFERRED SELF Confirmed By:Greyson Rizvi
[2020-03-24] MEDS ORDERED: LACTULOSE SYRUP 10 GM/15 ML BTL 960 ML PO PRN (14:51)
[2020-03-24 15:17] LABS: Appearance Urine Clear (Clear); Bilirubin Urine Negative (Negative); Blood Urine Negative (Negative); Color Urine Yellow; Glucose Urine UA Negative (Negative); Ketones Urine Negative (Negative); Leukocyte Esterase Urine Negative (Negative); Nitrite Urine Negative (Negative); Protein Urine Negative (Negative); Urobilinogen Urine Negative (Negative)
[2020-03-24] MEDS: SPIRONOLACTONE 25 MG TAB PO SCH (15:32)
[2020-03-24] MEDS ORDERED: FUROSEMIDE 40 MG/4 ML VIAL IV SCH (16:00)
[2020-03-24] MEDS: INSULIN ASPART 100 UNITS/ML 3 ML PEN SC SCH ×2 (18:03→20:47)
[2020-03-24] MEDS: PROPRANOLOL HCL 20 MG TAB PO SCH (20:44)
[2020-03-24] MEDS: FERROUS SULFATE 325 MG TAB PO SCH (20:46)
[2020-03-24] MEDS: CEROVITE ADV FORMULA TAB PO SCH (20:46)
[2020-03-24] MEDS: CHOLECALCIFEROL 1,000 UNITS 25 MCG TAB PO SCH (20:46)
[2020-03-24 22:43] LABS: Hemoglobin 8.9 g/dL (14.0-18.0)
[2020-03-25] MEDS: PANTOprazole 40 MG in DEXTROSE 5% 100 ML IV SCH ×3 (02:06→19:13)
[2020-03-25 06:01] LABS: Basophils # (auto) 0.02 K/uL (0-0.2); Basophils % (auto) 0.2 %; Eosinophils # (auto) 0.13 K/uL (0-0.5); Eosinophils % (auto) 1.2 %; Hematocrit (blood only) 27.9 % (42-52); Hemoglobin 8.5 g/dL (14.0-18.0); Immature Granulocytes # (auto) 0.06 K/uL (0.00-0.02); Immature Granulocytes % (auto) 0.6 %; Lymphocytes % (auto) 9.4 %; Mean Corpuscular Hemoglobin 25.9 pg (25-34); Mean Corpuscular Hgb Conc 30.5 g/dL (32-36); Mean Corpuscular Volume 85.1 fL (80-100); Mean Platelet Volume 10.3 fL (7.4-10.4); Monocytes # (auto) 0.44 K/uL (0.11-0.59); Monocytes % (auto) 4.1 %; Neutrophils # (auto) 9.04 K/uL (1.4-6.5); Neutrophils % (auto) 84.5 %; Nucleated RBC # (auto) 0.02 K/uL (0-0); Nucleated RBC % (auto) 0.2 %; Platelet Count 124 K/uL (130-400); RDW Coefficient of Variation 17.5 % (11.5-14.5); RDW Standard Deviation 49.1 fL (36.4-46.3); Red Blood Count 3.28 M/uL (4.7-6.1); White Blood Count 10.69 K/uL (4.8-10.8)
[2020-03-25] MEDS: INSULIN ASPART 100 UNITS/ML 3 ML PEN SC SCH ×4 (06:29→22:39)
[2020-03-25 06:37] LABS: Albumin Level 2.7 gm/dl (3.4-5.0); BUN Creatinine Ratio 26.3 (10-20); Calcium 8.4 mg/dl (8.5-10.1); Creatinine Clr Calc Pharmacy 40.9 ml/min; Est GFR (African American) 44.7; Est GFR (Non-African American) 38.6; Potassium 4.2 mmol/L (3.5-5.1)
[2020-03-25 06:42] LABS: Albumin Globulin Ratio 0.6 (0.9-2); Bilirubin,Total 3.5 mg/dl (0.2-1); Globulin 4.7 gm/dl (2.5-4.0); Total Protein 7.4 gm/dl (6.4-8.2)
--- NOTE | 2020-03-25 08:11 | Anesthesiology Consultation ---
Date of Service March 25, 2020 Assessment & Plan (1) Encounter for pre-operative examination: Chart Review Chart Review: Acceptable Risk for Surgery and Patient NOT seen in Pre Admission Testing Consults Requested none ASA ASA4 Proposed Anesthesia Anesthesia Type: MAC Risk / Benefits Reviewed With: PT / POA / Parent / Guardian, Accepts Plan and Informed Consent Obtained History Surgery Operation Date: 03/25/20 08:30 Proposed Procedures p Esophagogastroduodenoscopy Dr March - Barbara March Height/Weight Height: 5 ft 10 in Weight: 81.8 kg Allergies Allergy/AdvReac Type Severity Reaction Status Date / Time No Known Allergies Allergy Mild Verified 03/24/20 11:35 Medications Home Medications Medication Instructions Recorded Confirmed Last Taken furosemide [Lasix] 20 mg PO QAM 02/04/20 03/24/20 03/23/20 spironolactone [Aldactone] 50 mg PO QAM 02/04/20 03/24/20 03/23/20 adalimumab [Humira Pen] 40 mg SUBCUT UD 03/24/20 03/24/20 03/16/20 cholecalciferol (vitamin D3) 25 mcg PO HS 03/24/20 03/24/20 03/23/20 [Vitamin D3] citalopram [Celexa] 10 mg PO QAM 03/24/20 03/24/20 03/23/20 ferrous sulfate 325 mg PO BID 03/24/20 03/24/20 03/23/20 glimepiride [Amaryl] 2 mg PO BID 03/24/20 03/24/20 03/23/20 lactulose 10 g PO TID PRN 03/24/20 03/24/20 Unknown [id number] 1 tab PO HS 03/24/20 03/24/20 03/23/20 [Multivitamin 50 Plus] omeprazole 40 mg PO QAM 03/24/20 03/24/20 03/23/20 propranolol 40 mg PO BID 03/24/20 03/24/20 Unknown Active Medications Generic Name Dose Route Start Last Admin Trade Name Freq PRN Reason Stop Dose Admin Ferrous Sulfate 325 mg 03/24/20 21:00 03/24/20 20:46 Feosol PO 04/23/20 20:59 325 mg BID JODI Administration Pantoprazole Sodium 40 mg/ 100 mls @ 20 mls/hr 03/24/20 11:30 03/25/20 07:26 Dextrose IV 04/23/20 11:29 8 mg/hr Q5H JODI 20 mls/hr Administration 8 MG/HR Insulin Aspart 0 units 03/25/20 06:00 03/25/20 06:29 Novolog Flexpen SC 04/24/20 05:59 1 units Q6 JODI Administration Multivitamins/Minerals 1 tab 03/24/20 21:00 03/24/20 20:46 Multivitamin W/ Minerals Tab PO 04/23/20 20:59 1 tab HS JODI Administration Propranolol HCl 40 mg 03/24/20 21:00 03/24/20 20:44 Inderal PO 04/23/20 20:59 Not Given BID JODI Spironolactone 50 mg 03/24/20 14:28 03/24/20 15:32 Aldactone PO 04/23/20 14:27 50 mg QAM JODI Administration Vitamin D 1,000 units 03/24/20 21:00 03/24/20 20:46 Vitamin D3 PO 04/23/20 20:59 1,000 units HS JODI Administration NPO Date Last Intake of Fluids: 03/24/20 Time Last Intake of Fluids: 18:00 Date Last Intake of Solids: 03/24/20 Time Last Intake of Solids: 18:00 Last Intake of Solids Comment: NPO after midnight Past Medical History Medical History Cirrhosis (Acute) 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 Esophageal varices (Acute) GAVE (gastric antral vascular ectasia) GERD (gastroesophageal reflux disease) (Acute) History of abdominal paracentesis (Acute) Hypertension (Acute) Psoriasis (Acute) T2DM (type 2 diabetes mellitus) Exercise / Class Metabolic Activity III < 4 Walking/Shop/Light housework Past Family History Family History Father Colorectal cancer, Onset Age: 63 Mother Lung cancer Past Surgical History Surgical History History of colonoscopy with polypectomy Last in 2015 History of esophagogastroduodenoscopy (EGD) last 06/2019 revealed grade 2 esophageal varices, grade 1 gastric varices History of tonsillectomy and adenoidectomy (Acute) Past Anesthesia History No Hx of Anesthesia Complications History of PONV No Hx of PONV 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 Smoking Status: Never smoker Do You Dip or Chew Tobacco: No Hx Alcohol Use: No Hx Substance Use: No substance use type: does not use Review of Systems positive for SOB and heart palpitations - denies CP Patient denies active symptoms of GERD. Physical Exam Vital Signs Last Vital Signs Temp 36.9 C 03/25/20 08:02 Pulse 74 03/25/20 08:02 Resp 18 03/25/20 08:02 BP 141/74 H 03/25/20 08:02 Pulse Ox 97 03/25/20 08:02 Constitutional + obese distended abd. due to liver dz ENMT Mouth: no TMJ abnormality and oral opening not small Thyromental Distance: > or= 3.5 Finger Breadths Mallampati Class: II Neck normal visual inspection; neck extension not limited Respiratory normal respiratory effort Auscultation: lungs clear to auscultation bilaterally Cardiovascular Rate/Rhythm: regular rate and regular rhythm Heart Sounds: no murmur Neurologic moves all extremities Psychiatric Orientation: alert and oriented x 3 Testing Laboratory Results 03/25/20 05:41 03/25/20 05:41 PT 11.9 Seconds (9.0-12.0) 03/24/20 09:54 INR 1.1 (0.9-1.1) 03/24/20 09:54 APTT 22.4 Seconds (21.0-31.0) 03/24/20 09:54 Urine Color Yellow 03/24/20 14:30 Urine Appearance Clear (Clear) 03/24/20 14:30 Urine pH 5.0 (4.5-7.5) 03/24/20 14:30 Ur Specific Norris 1.020 (1.000-1.030) 03/24/20 14:30 Urine Protein Negative (Negative) 03/24/20 14:30 Urine Glucose (UA) Negative (Negative) 03/24/20 14:30 Urine Ketones Negative (Negative) 03/24/20 14:30 Urine Nitrite Negative (Negative) 03/24/20 14:30 Ur Leukocyte Esterase Negative (Negative) 03/24/20 14:30 Blood Type O Positive 03/24/20 10:08 Antibody Screen NEGATIVE 03/24/20 10:08 03/25/20 03/24/20 06:12 23:57 POC Glucose 161 H 122 H Electrocardiogram Date: 03/24/20 Findings: + SB @ (With PVCs)
[2020-03-25] MEDS ORDERED: PROPOFOL IV EMULSION 10 MG/ML 20 ML VIAL IV ONE (08:14)
[2020-03-25] MEDS ORDERED: LIDOCAINE HCL 2% 2 ML VIAL/AMP(20MG/ML) INFIL ONE (08:14)
--- NOTE | 2020-03-25 08:18 | Hospitalist Progress Note ---
Date of Service March 25, 2020 Assessment & Plan (1) Symptomatic anemia: This is a 69-year-old male with significant PMH of [place] cirrhosis, esophageal and gastric varices, GAVE, T2DM, CKD stage III, GERD, psoriasis presents to the ED at the referral of PCP. In ED he remained hemodynamically stable. His hemoglobin and hematocrit was 7.0 and 23.4, WBC 11.59, platelet 163, BUN 52, creatinine 1.76. His stool was positive for blood via FOBT (patient is also on iron supplement) He received IV protonix in ED. Pt had labwork in outpt setting 03/16 hgb 7.1 and iron studies which revealed significant iron deficiency anemia (ferritin 7.6, iron 29, total saturation 7%, TIBC 413) Patient is not exhibiting any hematemesis and does not report any melena or hematochezia, although his FOBT was positive GI has seen and evaluated patient in ED. S/p tranfusion of 2 units pRBC on admission with 40mg IV lasix in between GI consulted Pt is now s/p EGD (03/25) no active bleeding found Continue protonix 40mg IV BID Discussed Ocretreotide with GI - given no findings of hematemesis/chezia likely not an acute bleed continue iron supplementation - consider iron infusion as outpt Repeat H&H post transfusion 8.0, this AM (03/25) 8.5 Discussed with GI, they feel that patient is okay for discharge, no need for colonoscopy. H&H then rechecked around noon, down to 8.2. Discussed with the patient that we will recheck H&H in the morning. Patient in agreement. Paracentesis was also offered by GI team, patient declined. (2) Cirrhosis: FOFANA Cirrhosis Follows [facility] continue lasix, aldactone (recently decreased both on 03/16 from Lasix 40mg to 20mg and Aldactone 100mg to 50mg) Takes lactulose prn, no s/sx of hepatic encephalopathy Consider increase in diuretic wants post transfusion given increased abd girth and ascites (3) Esophageal varices: continue propranolol GI consulted, no active variceal bleed found on EGD (4) GAVE (gastric antral vascular ectasia): continue propranolol GI on board (5) T2DM (type 2 diabetes mellitus): A1C 8.1 on 4/15 on glimepride at home hold and place on novolog SS per protocol if BSG consistently > 180 will add long acting insulin (6) CKD (chronic kidney disease) stage 3, GFR 30-59 ml/min: baseline Cr 1.6-1.8 pt with pre renal insufficiency on CKD likely due to volume depletion 2/2 to Anemia 2 unit PRBC ordered with lasix in between, on admission follow BMP (7) DVT prophylaxis: SCD/TEDS Disposition: med tele Follow up: PCP Dr. Hill upon discharge along with appropriate GI follow up/ [facility] hepatology Admission and Anticipated Discharge Date Admission Date: March 24, 2020 Subjective Patient sitting up in bed, in no acute distress. Came yesterday due to anemia. Status post transfusion of 2 units of PRBCs. Hemoglobin after recheck 8.9 yesterday. This morning hemoglobin 8.5. Underwent EGD with GI this morning, there was no active bleeding found. At this point do not feel colonoscopy necessary. Per GI, okay to discharge and follow-up with [facility] hepatology, his outpatient providers. Hemoglobin on recheck around noon, 8.2. Discussed with the patient to watch him overnight and recheck H&H in the morning. Patient in agreement. Patient otherwise denies any fevers, chills, chest pain, shortness of breath, abdominal pain, nausea or vomiting. He said that previously he was short of breath and had palpitations. Review of Systems Review of Systems: All systems reviewed & are unremarkable except as noted in HPI & below Constitutional: no fever and no chills Respiratory: no cough and no dyspnea Cardiovascular: no chest pain, no palpitations and no edema Gastrointestinal: no abdominal pain, no nausea and no vomiting Physical Exam Physical Exam: Constitutional: WD/WN, Pale, M, vitals as above, NAD, sitting up in bed, pleasant, conversing easily Head: Normocephalic, Atraumatic Eyes: PERRL, conjunctivae normal, anicteric sclerae ENMT: external ear and nose normal, oropharynx normal Neck: trachea midline, no thyromegaly normal visual inspection Respiratory: normal respiratory effort, lungs clear to auscultation, no wheeze, rales, rhonchi. Normal insp/exp effort, no accessory muscle use Cardiovascular: RRR, 2/6 WINTER noted cardiac apex, no edema Vessels: no JVD or carotid bruit Chest: normal inspection of chest Abdomen:+distended abdomen 2/2 to ascites, protuberant, normal bowel sounds, soft, nontender, Musculoskeletal: no cyanosis or clubbing, extremities motor strength 5/5 Skin: no rashes, warm and dry moderate turgor , cap refill > 2 Neurologic: PERRL, EOMI, accommodation nl, no face palsy, no dysarthria CN's II-XI intact bilaterally and moves all extremities Psychiatric: A+Ox3, euthymic affect Results & Data Results & Data ([facility]) Vital Signs (Past 12 Hours) Vital Signs Temp Pulse Pulse Resp BP BP Pulse Ox 03/25/20 08:02 36.9 C 74 18 141/74 H 97 03/25/20 07:14 37.0 C 71 18 115/69 97 03/25/20 03:00 37.3 C 66 20 136/73 97 03/25/20 00:00 59 L 03/24/20 23:00 37 C 60 20 130/74 98 03/24/20 21:05 36.7 C 56 L 16 114/63 98 03/24/20 20:40 36.6 C 54 L 16 101/54 L 99 Laboratory Results 03/25/20 03/25/20 03/25/20 Range/Units 06:12 05:41 05:41 WBC 10.69 (4.8-10.8) K/uL RBC 3.28 L (4.7-6.1) M/uL Hgb 8.5 L (14.0-18.0) g/dL POC Hgb (14.0-18.0) g/dl Hct 27.9 L (42-52) % POC Hct (42-52) % MCV 85.1 (80-100) fL MCH 25.9 (25-34) pg MCHC 30.5 L (32-36) g/dL RDW Std Deviation 49.1 H (36.4-46.3) fL RDW Coeff of Violetta 17.5 H (11.5-14.5) % Plt Count 124 L (130-400) K/uL MPV 10.3 (7.4-10.4) fL Immature Gran % (Auto) 0.6 % Neut % (Auto) 84.5 % Lymph % (Auto) 9.4 % [place] % (Auto) 4.1 % Eos % (Auto) 1.2 % Baso % (Auto) 0.2 % Immature Gran # (Auto) 0.06 H (0.00-0.02) K/uL Neut # (Auto) 9.04 H (1.4-6.5) K/uL Lymph # (Auto) 1.00 L (1.2-3.4) K/uL [place] # (Auto) 0.44 (0.11-0.59) K/uL Eos # (Auto) 0.13 (0-0.5) K/uL Baso # (Auto) 0.02 (0-0.2) K/uL Absolute Nucleated RBC 0.02 H (0-0) K/uL Nucleated RBC % (auto) 0.2 % Polychromasia Tear Drop Cells PT (9.0-12.0) Seconds INR (0.9-1.1) APTT (21.0-31.0) Seconds PTT Ratio POC Sodium (135-144) mmol/L Sodium 139 (136-145) mmol/L POC Potassium (3.3-5.0) mmol/L Potassium 4.2 (3.5-5.1) mmol/L POC Chloride (101-112) mmol/L Chloride 111 H (98-107) mmol/L Carbon Dioxide 20 L (21-32) mmol/L POC Total CO2 (24-31) mEq/l Anion Gap 8.0 (3-11) POC Anion Gap (16-25) mmol/L POC BUN (7-18) mg/dl BUN 46 H (7-18) mg/dl Creatinine 1.76 H (0.6-1.4) mg/dl POC Creatinine (0.6-1.3) mg/dl Est Cr Clr Drug Dosing 40.9 ml/min Est GFR ( Amer) 44.7 Est GFR (Non-Af Amer) 38.6 BUN/Creatinine Ratio 26.3 H (10-20) Glucose 141 H (70-99) mg/dl POC Glucose 161 H (70-99) mg/dl POC Glucose (other) (70-99) mg/dl Calcium 8.4 L (8.5-10.1) mg/dl POC Ioniz Calcium Meryl (1.12-1.32) mmol/l Total Bilirubin 3.5 H D (0.2-1) mg/dl AST 40 H (15-37) U/L ALT 31 (12-78) U/L Alkaline Phosphatase 136 H (45-117) U/L Total Protein 7.4 (6.4-8.2) gm/dl Albumin 2.7 L (3.4-5.0) gm/dl Globulin 4.7 H (2.5-4.0) gm/dl Albumin/Globulin Ratio 0.6 L (0.9-2) Urine Color Urine Appearance (Clear) Urine pH (4.5-7.5) Ur Specific [place] (1.000-1.030) Urine Protein (Negative) Urine Glucose (UA) (Negative) Urine Ketones (Negative) Urine Blood (Negative) Urine Nitrite (Negative) Urine Bilirubin (Negative) Urine Urobilinogen (Negative) Ur Leukocyte Esterase (Negative) POC Stool Occult Blood (Negative) Blood Type Antibody Screen Crossmatch 03/24/20 03/24/20 03/24/20 Range/Units 23:57 22:24 20:08 WBC (4.8-10.8) K/uL RBC (4.7-6.1) M/uL Hgb 8.9 L (14.0-18.0) g/dL POC Hgb (14.0-18.0) g/dl Hct 29.0 L (42-52) % POC Hct (42-52) % MCV (80-100) fL MCH (25-34) pg MCHC (32-36) g/dL RDW Std Deviation (36.4-46.3) fL RDW Coeff of Violetta (11.5-14.5) % Plt Count (130-400) K/uL MPV (7.4-10.4) fL Immature Gran % (Auto) % Neut % (Auto) % Lymph % (Auto) % [place] % (Auto) % Eos % (Auto) % Baso % (Auto) % Immature Gran # (Auto) (0.00-0.02) K/uL Neut # (Auto) (1.4-6.5) K/uL Lymph # (Auto) (1.2-3.4) K/uL [place] # (Auto) (0.11-0.59) K/uL Eos # (Auto) (0-0.5) K/uL Baso # (Auto) (0-0.2) K/uL Absolute Nucleated RBC (0-0) K/uL Nucleated RBC % (auto) % Polychromasia Tear Drop Cells PT (9.0-12.0) Seconds INR (0.9-1.1) APTT (21.0-31.0) Seconds PTT Ratio POC Sodium (135-144) mmol/L Sodium (136-145) mmol/L POC Potassium (3.3-5.0) mmol/L Potassium (3.5-5.1) mmol/L POC Chloride (101-112) mmol/L Chloride (98-107) mmol/L Carbon Dioxide (21-32) mmol/L POC Total CO2 (24-31) mEq/l Anion Gap (3-11) POC Anion Gap (16-25) mmol/L POC BUN (7-18) mg/dl BUN (7-18) mg/dl Creatinine (0.6-1.4) mg/dl POC Creatinine (0.6-1.3) mg/dl Est Cr Clr Drug Dosing ml/min Est GFR ( Amer) Est GFR (Non-Af Amer) BUN/Creatinine Ratio (10-20) Glucose (70-99) mg/dl POC Glucose 122 H 215 H (70-99) mg/dl POC Glucose (other) (70-99) mg/dl Calcium (8.5-10.1) mg/dl POC Ioniz Calcium Meryl (1.12-1.32) mmol/l Total Bilirubin (0.2-1) mg/dl AST (15-37) U/L ALT (12-78) U/L Alkaline Phosphatase (45-117) U/L Total Protein (6.4-8.2) gm/dl Albumin (3.4-5.0) gm/dl Globulin (2.5-4.0) gm/dl Albumin/Globulin Ratio (0.9-2) Urine Color Urine Appearance (Clear) Urine pH (4.5-7.5) Ur Specific [place] (1.000-1.030) Urine Protein (Negative) Urine Glucose (UA) (Negative) Urine Ketones (Negative) Urine Blood (Negative) Urine Nitrite (Negative) Urine Bilirubin (Negative) Urine Urobilinogen (Negative) Ur Leukocyte Esterase (Negative) POC Stool Occult Blood (Negative) Blood Type Antibody Screen Crossmatch 03/24/20 03/24/20 03/24/20 Range/Units 17:20 14:30 10:43 WBC (4.8-10.8) K/uL RBC (4.7-6.1) M/uL Hgb (14.0-18.0) g/dL POC Hgb (14.0-18.0) g/dl Hct (42-52) % POC Hct (42-52) % MCV (80-100) fL MCH (25-34) pg MCHC (32-36) g/dL RDW Std Deviation (36.4-46.3) fL RDW Coeff of Violetta (11.5-14.5) % Plt Count (130-400) K/uL MPV (7.4-10.4) fL Immature Gran % (Auto) % Neut % (Auto) % Lymph % (Auto) % [place] % (Auto) % Eos % (Auto) % Baso % (Auto) % Immature Gran # (Auto) (0.00-0.02) K/uL Neut # (Auto) (1.4-6.5) K/uL Lymph # (Auto) (1.2-3.4) K/uL [place] # (Auto) (0.11-0.59) K/uL Eos # (Auto) (0-0.5) K/uL Baso # (Auto) (0-0.2) K/uL Absolute Nucleated RBC (0-0) K/uL Nucleated RBC % (auto) % Polychromasia Tear Drop Cells PT (9.0-12.0) Seconds INR (0.9-1.1) APTT (21.0-31.0) Seconds PTT Ratio POC Sodium (135-144) mmol/L Sodium (136-145) mmol/L POC Potassium (3.3-5.0) mmol/L Potassium (3.5-5.1) mmol/L POC Chloride (101-112) mmol/L Chloride (98-107) mmol/L Carbon Dioxide (21-32) mmol/L POC Total CO2 (24-31) mEq/l Anion Gap (3-11) POC Anion Gap (16-25) mmol/L POC BUN (7-18) mg/dl BUN (7-18) mg/dl Creatinine (0.6-1.4) mg/dl POC Creatinine (0.6-1.3) mg/dl Est Cr Clr Drug Dosing ml/min Est GFR ( Amer) Est GFR (Non-Af Amer) BUN/Creatinine Ratio (10-20) Glucose (70-99) mg/dl POC Glucose 183 H (70-99) mg/dl POC Glucose (other) (70-99) mg/dl Calcium (8.5-10.1) mg/dl POC Ioniz Calcium Meryl (1.12-1.32) mmol/l Total Bilirubin (0.2-1) mg/dl AST (15-37) U/L ALT (12-78) U/L Alkaline Phosphatase (45-117) U/L Total Protein (6.4-8.2) gm/dl Albumin (3.4-5.0) gm/dl Globulin (2.5-4.0) gm/dl Albumin/Globulin Ratio (0.9-2) Urine Color Yellow Urine Appearance Clear (Clear) Urine pH 5.0 (4.5-7.5) Ur Specific [place] 1.020 (1.000-1.030) Urine Protein Negative (Negative) Urine Glucose (UA) Negative (Negative) Urine Ketones Negative (Negative) Urine Blood Negative (Negative) Urine Nitrite Negative (Negative) Urine Bilirubin Negative (Negative) Urine Urobilinogen Negative (Negative) Ur Leukocyte Esterase Negative (Negative) POC Stool Occult Blood Positive A (Negative) Blood Type Antibody Screen Crossmatch 03/24/20 03/24/20 03/24/20 Range/Units 10:12 10:08 09:54 WBC (4.8-10.8) K/uL RBC (4.7-6.1) M/uL Hgb (14.0-18.0) g/dL POC Hgb 7.1 L (14.0-18.0) g/dl Hct (42-52) % POC Hct 21 L (42-52) % MCV (80-100) fL MCH (25-34) pg MCHC (32-36) g/dL RDW Std Deviation (36.4-46.3) fL RDW Coeff of Violetta (11.5-14.5) % Plt Count (130-400) K/uL MPV (7.4-10.4) fL Immature Gran % (Auto) % Neut % (Auto) % Lymph % (Auto) % [place] % (Auto) % Eos % (Auto) % Baso % (Auto) % Immature Gran # (Auto) (0.00-0.02) K/uL Neut # (Auto) (1.4-6.5) K/uL Lymph # (Auto) (1.2-3.4) K/uL [place] # (Auto) (0.11-0.59) K/uL Eos # (Auto) (0-0.5) K/uL Baso # (Auto) (0-0.2) K/uL Absolute Nucleated RBC (0-0) K/uL Nucleated RBC % (auto) % Polychromasia Tear Drop Cells PT 11.9 (9.0-12.0) Seconds INR 1.1 (0.9-1.1) APTT 22.4 (21.0-31.0) Seconds PTT Ratio 0.8 POC Sodium 139 (135-144) mmol/L Sodium (136-145) mmol/L POC Potassium 4.1 (3.3-5.0) mmol/L Potassium (3.5-5.1) mmol/L POC Chloride 109 (101-112) mmol/L Chloride (98-107) mmol/L Carbon Dioxide (21-32) mmol/L POC Total CO2 19 L (24-31) mEq/l Anion Gap (3-11) POC Anion Gap 17.0 (16-25) mmol/L POC BUN 46 H (7-18) mg/dl BUN (7-18) mg/dl Creatinine (0.6-1.4) mg/dl POC Creatinine 1.7 H (0.6-1.3) mg/dl Est Cr Clr Drug Dosing ml/min Est GFR ( Amer) Est GFR (Non-Af Amer) BUN/Creatinine Ratio (10-20) Glucose (70-99) mg/dl POC Glucose (70-99) mg/dl POC Glucose (other) 114 H (70-99) mg/dl Calcium (8.5-10.1) mg/dl POC Ioniz Calcium Meryl 1.22 (1.12-1.32) mmol/l Total Bilirubin (0.2-1) mg/dl AST (15-37) U/L ALT (12-78) U/L Alkaline Phosphatase (45-117) U/L Total Protein (6.4-8.2) gm/dl Albumin (3.4-5.0) gm/dl Globulin (2.5-4.0) gm/dl Albumin/Globulin Ratio (0.9-2) Urine Color Urine Appearance (Clear) Urine pH (4.5-7.5) Ur Specific [place] (1.000-1.030) Urine Protein (Negative) Urine Glucose (UA) (Negative) Urine Ketones (Negative) Urine Blood (Negative) Urine Nitrite (Negative) Urine Bilirubin (Negative) Urine Urobilinogen (Negative) Ur Leukocyte Esterase (Negative) POC Stool Occult Blood (Negative) Blood Type O Positive Antibody Screen NEGATIVE Crossmatch See Detail 03/24/20 03/24/20 Range/Units 09:54 09:54 WBC 11.59 H (4.8-10.8) K/uL RBC 2.74 L (4.7-6.1) M/uL Hgb 7.0 L (14.0-18.0) g/dL POC Hgb (14.0-18.0) g/dl Hct 23.4 L (42-52) % POC Hct (42-52) % MCV 85.4 (80-100) fL MCH 25.5 (25-34) pg MCHC 29.9 L (32-36) g/dL RDW Std Deviation 51.2 H (36.4-46.3) fL RDW Coeff of Violetta 18.2 H (11.5-14.5) % Plt Count 163 (130-400) K/uL MPV 10.1 (7.4-10.4) fL Immature Gran % (Auto) 0.9 % Neut % (Auto) 79.5 % Lymph % (Auto) 12.5 % [place] % (Auto) 5.3 % Eos % (Auto) 1.6 % Baso % (Auto) 0.2 % Immature Gran # (Auto) 0.10 H (0.00-0.02) K/uL Neut # (Auto) 9.23 H (1.4-6.5) K/uL Lymph # (Auto) 1.45 (1.2-3.4) K/uL [place] # (Auto) 0.61 H (0.11-0.59) K/uL Eos # (Auto) 0.18 (0-0.5) K/uL Baso # (Auto) 0.02 (0-0.2) K/uL Absolute Nucleated RBC 0.06 H (0-0) K/uL Nucleated RBC % (auto) 0.5 % Polychromasia 1+ Tear Drop Cells 1+ PT (9.0-12.0) Seconds INR (0.9-1.1) APTT (21.0-31.0) Seconds PTT Ratio POC Sodium (135-144) mmol/L Sodium 139 (136-145) mmol/L POC Potassium (3.3-5.0) mmol/L Potassium 4.1 (3.5-5.1) mmol/L POC Chloride (101-112) mmol/L Chloride 111 H (98-107) mmol/L Carbon Dioxide 21 (21-32) mmol/L POC Total CO2 (24-31) mEq/l Anion Gap 7.0 (3-11) POC Anion Gap (16-25) mmol/L POC BUN (7-18) mg/dl BUN 52 H (7-18) mg/dl Creatinine 1.76 H (0.6-1.4) mg/dl POC Creatinine (0.6-1.3) mg/dl Est Cr Clr Drug Dosing 40.9 ml/min Est GFR ( Amer) 44.7 Est GFR (Non-Af Amer) 38.6 BUN/Creatinine Ratio 29.7 H (10-20) Glucose 109 H (70-99) mg/dl POC Glucose (70-99) mg/dl POC Glucose (other) (70-99) mg/dl Calcium 8.6 (8.5-10.1) mg/dl POC Ioniz Calcium Meryl (1.12-1.32) mmol/l Total Bilirubin 1.2 H (0.2-1) mg/dl AST 25 (15-37) U/L ALT 29 (12-78) U/L Alkaline Phosphatase 136 H (45-117) U/L Total Protein 7.9 (6.4-8.2) gm/dl Albumin 2.8 L (3.4-5.0) gm/dl Globulin 5.1 H (2.5-4.0) gm/dl Albumin/Globulin Ratio 0.6 L (0.9-2) Urine Color Urine Appearance (Clear) Urine pH (4.5-7.5) Ur Specific [place] (1.000-1.030) Urine Protein (Negative) Urine Glucose (UA) (Negative) Urine Ketones (Negative) Urine Blood (Negative) Urine Nitrite (Negative) Urine Bilirubin (Negative) Urine Urobilinogen (Negative) Ur Leukocyte Esterase (Negative) POC Stool Occult Blood (Negative) Blood Type Antibody Screen Crossmatch Medications Administered Current Inpatient Medications Citalopram Hydrobromide (Celexa) 10 mg PO QAM JODI Stop: 04/24/20 08:59 Dextrose (Dextrose 50%) 25 - 50 ml IV UD PRN; Protocol PRN Reason: Hypoglycemia Protocol Stop: 04/23/20 14:27 Ferrous Sulfate (Feosol) 325 mg PO BID JODI Stop: 04/23/20 20:59 Last Admin: 03/24/20 20:46 Dose: 325 mg Documented by: Glucagon (Glucagen) 1 mg SQ UD PRN; Protocol PRN Reason: Hypoglycemia Protocol Stop: 04/23/20 14:27 Glucose (Dex4 Glucose) 4 - 8 tabs PO UD PRN; Protocol PRN Reason: Hypoglycemia Protocol Stop: 04/23/20 14:27 Glucose (Glucose 40%) 15 - 30 gm PO UD PRN; Protocol PRN Reason: Hypoglycemia Protocol Stop: 04/23/20 14:27 Pantoprazole Sodium 40 mg/ (Dextrose) 100 mls @ 20 mls/hr IV Q5H JODI Stop: 04/23/20 11:29 Last Admin: 03/25/20 07:26 Dose: 8 mg/hr, 20 mls/hr Documented by: Insulin Aspart (Novolog Flexpen) 0 units SC Q6 JODI Stop: 04/24/20 05:59 Last Admin: 03/25/20 06:29 Dose: 1 units Documented by: Lactulose (Chronulac) 10 gm PO TID PRN PRN Reason: CONSTIPATION Stop: 04/23/20 14:50 Miscellaneous (Carbohydrates For Hypoglycemia) 15 - 30 gm PO UD PRN PRN Reason: Hypoglycemia Protocol Stop: 04/23/20 14:27 Multivitamins/Minerals (Multivitamin W/ Minerals Tab) 1 tab PO HS JODI Stop: 04/23/20 20:59 Last Admin: 04/23/20 20:46 Dose: 1 tab Documented by: Ondansetron HCl (Zofran) 4 mg IV Q6H PRN PRN Reason: Nausea Stop: 04/23/20 14:27 Polyethylene Glycol (Miralax Powder Packet) 17 gm PO DAILY PRN PRN Reason: Constipation Stop: 04/23/20 14:27 Propranolol HCl (Inderal) 40 mg PO BID [facility] Stop: 04/23/20 20:59 Last Admin: 03/24/20 20:44 Dose: Not Given Documented by: Spironolactone (Aldactone) 50 mg PO QAM [facility] Stop: 04/23/20 14:27 Last Admin: 03/24/20 15:32 Dose: 50 mg Documented by: Vitamin D (Vitamin D3) 1,000 units PO HS [facility] Stop: 04/23/20 20:59 Last Admin: 03/24/20 20:46 Dose: 1,000 units Documented by:
--- NOTE | 2020-03-25 08:20 | History & Physical Report ---
Date of Service March 25, 2020 Assessment & Plan (1) Upper GI bleed: EGD today (2) Cirrhosis: (3) Esophageal varices: History of Present Illness Chief Complaint: anemia cirrhosis Primary Care Provider: Raulito Hill DO anemia cirrhosis Allergies Allergy/AdvReac Type Severity Reaction Status Date / Time No Known Allergies Allergy Mild Verified 03/24/20 11:35 Home Medications Home Medications Medication Instructions Recorded Confirmed Type furosemide [Lasix] 20 mg PO QAM 02/04/20 03/24/20 History spironolactone [Aldactone] 50 mg PO QAM 02/04/20 03/24/20 History adalimumab [Humira Pen] 40 mg SUBCUT UD 03/24/20 03/24/20 History cholecalciferol (vitamin D3) 25 mcg PO HS 03/24/20 03/24/20 History [Vitamin D3] citalopram [Celexa] 10 mg PO QAM 03/24/20 03/24/20 History ferrous sulfate 325 mg PO BID 03/24/20 03/24/20 History glimepiride [Amaryl] 2 mg PO BID 03/24/20 03/24/20 History lactulose 10 g PO TID PRN 03/24/20 03/24/20 History [id number] 1 tab PO HS 03/24/20 03/24/20 History [Multivitamin 50 Plus] omeprazole 40 mg PO QAM 03/24/20 03/24/20 History propranolol 40 mg PO BID 03/24/20 03/24/20 History Past Med/Surg History Medical History Cirrhosis (Acute) 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 Esophageal varices (Acute) GAVE (gastric antral vascular ectasia) GERD (gastroesophageal reflux disease) (Acute) History of abdominal paracentesis (Acute) Hypertension (Acute) Psoriasis (Acute) T2DM (type 2 diabetes mellitus) Surgical History History of colonoscopy with polypectomy Last in 2015 History of esophagogastroduodenoscopy (EGD) last 06/2019 revealed grade 2 esophageal varices, grade 1 gastric varices History of tonsillectomy and adenoidectomy (Acute) Family History Father Colorectal cancer, Onset Age: 63 Mother Lung cancer 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 Preferred Language: [place] Communication Ability: Effective Comparison Shopper Required: No Beliefs That Will Affect Care: None Current Living Situation: Spouse Other Information That Helps Us Care for You: No Feels Safe at Home: Yes Safety Concerns: Feels Safe At This Time Smoking Status: Never smoker Do You Dip or Chew Tobacco: No ; Second Hand Exposure: No ; Tobacco Cessation Education Requested by Patient: No Hx Alcohol Use: No Hx Substance Use: No Physical Exam Constitutional: WD/WN, vitals as above Respiratory: normal respiratory effort, lungs clear to auscultation Cardiovascular: RRR, no murmur, no edema Gastrointestinal (Abdomen): normal bowel sounds, soft, nontender, no hepatosplenomegaly Results & Data Vital Signs (Past 12 Hours) Vital Signs Temp Pulse Pulse Resp BP BP Pulse Ox 03/25/20 08:02 36.9 C 74 18 141/74 H 97 03/25/20 07:14 37.0 C 71 18 115/69 97 03/25/20 03:00 37.3 C 66 20 136/73 97 03/25/20 00:00 59 L 03/24/20 23:00 37 C 60 20 130/74 98 03/24/20 21:05 36.7 C 56 L 16 114/63 98 03/24/20 20:40 36.6 C 54 L 16 101/54 L 99 Code Status & VTE Plan VTE Prophylaxis Plan VTE Prophylaxis will be ordered: Yes Reason for no VTE drug order: Contraindicated
--- NOTE | 2020-03-25 08:45 | GI REPORT ---
Patient Name: Luis Hale Procedure Date: 03/25/2020 8:10 AM Date of : 1950 Admit Type: Inpatient Age: 69 Gender: Male Attending MD: Barbara March DO Procedure: Upper GI endoscopy Providers: Barbara March DO Referring MD: Crystal Delaney Do Indications: Iron deficiency anemia, Suspected gastrointestinal bleeding, Portal hypertensive gastropathy Medicines: Propofol per Anesthesia Complications: No immediate complications. Estimated blood loss: None. Estimated Blood Loss: Estimated blood loss: none. Procedure: Pre-Anesthesia Assessment: - Prior to the procedure, a History and Physical was performed, and patient medications, allergies and sensitivities were reviewed. The patient's tolerance of previous anesthesia was reviewed. - The risks and benefits of the procedure and the sedation options and risks were discussed with the patient. All questions were answered and informed consent was obtained. - Patient identification and proposed procedure were verified prior to the procedure by the physician and the nurse. The procedure was verified in the pre-procedure area in the procedure room. - Mental Status Examination: alert and oriented. Airway Examination: normal oropharyngeal airway and neck mobility. Respiratory Examination: clear to auscultation. CV Examination: normal. Abdominal Examination: bowel sounds present, abdomen soft and non-tender, no masses or organomegaly noted. - ASA Grade Assessment: IV - A patient with severe systemic disease that is a constant threat to life. After obtaining informed consent, the endoscope was passed under direct vision. Throughout the procedure, the patient's blood pressure, pulse, and oxygen saturations were monitored continuously. The Endoscope was introduced through the mouth, and advanced to the second part of duodenum. The upper GI endoscopy was accomplished without difficulty. The patient tolerated the procedure well. Findings: Grade II varices were found in the middle third of the esophagus and in the lower third of the esophagus. Moderate portal hypertensive gastropathy was found in the entire examined stomach. The examined duodenum was normal. Impression: - No fresh or altered blood. - Grade II esophageal varices. No signs of hemorrhage. - Portal hypertensive gastropathy. - Normal examined duodenum. - No specimens collected. Recommendation: - Non-selective b-jassi - Advance diet - Return patient to [facility] for ongoing care. Gabriela Gatica.O. Barbara March DO 03/25/2020 8:44:52 AM This report has been signed electronically. Note Initiated On: 03/25/2020 8:10 AM Number of Addenda: 0 I attest to the content of the Intraoperative Record and orders documented therein, exceptions below {[id number]}
--- NOTE | 2020-03-25 09:14 | Anesthesiology Progress Note ---
Date of Service March 25, 2020 Anesthesia Post Procedure Vital Signs Vital Signs: Temp Pulse Pulse Pulse Resp BP BP 03/25/20 09:05 68 18 111/58 L 03/25/20 08:50 69 16 119/61 03/25/20 08:35 36.9 C 68 12 127/64 03/25/20 08:02 36.9 C 74 18 141/74 H 03/25/20 07:14 37.0 C 71 18 115/69 03/25/20 03:00 37.3 C 66 20 136/73 03/25/20 00:00 59 L 03/24/20 23:00 37 C 60 20 130/74 03/24/20 21:05 36.7 C 56 L 16 114/63 03/24/20 20:40 36.6 C 54 L 16 101/54 L 03/24/20 20:03 36.9 C 54 L 19 117/63 03/24/20 19:00 36.8 C 50 L 17 148/77 H 03/24/20 18:47 36.8 C 56 L 18 124/70 03/24/20 18:30 36.8 C 53 L 18 130/72 03/24/20 18:13 36.3 C L 55 L 16 112/54 L 03/24/20 18:11 36.3 C L 55 L 16 112/54 L 03/24/20 17:10 36.3 C L 58 L 16 130/69 03/24/20 16:40 36.4 C L 54 L 20 120/61 03/24/20 16:10 36.8 C 54 L 19 119/68 03/24/20 15:54 36.8 C 55 L 18 112/61 03/24/20 15:35 36.7 C 54 L 18 117/70 03/24/20 15:06 36.6 C 61 18 117/52 L 03/24/20 15:00 58 L 03/24/20 13:44 75 20 03/24/20 13:25 59 L 20 124/68 03/24/20 10:43 57 L 57 L 18 116/61 03/24/20 09:29 36.6 C 60 18 105/63 Pulse Ox 03/25/20 09:05 97 03/25/20 08:50 96 03/25/20 08:35 100 03/25/20 08:02 97 04/24/20 07:14 97 03/25/20 03:00 97 03/25/20 00:00 03/24/20 23:00 98 03/24/20 21:05 98 03/24/20 20:40 99 03/24/20 20:03 97 03/24/20 19:00 100 03/24/20 18:47 100 03/24/20 18:30 100 03/24/20 18:13 100 03/24/20 18:11 100 03/24/20 17:10 100 03/24/20 16:40 98 03/24/20 16:10 99 03/24/20 15:54 100 03/24/20 15:35 100 03/24/20 15:06 96 03/24/20 15:00 03/24/20 13:44 98 03/24/20 13:25 98 03/24/20 10:43 98 03/24/20 09:29 100 Transfer of Care Handoff Completed per policy Notes Mental Status: alert / awake / arousable and participated in evaluation Nausea / Vomiting: adequately controlled Pain: adequately controlled Airway Patency, RR, SpO2: stable & adequate BP & HR: stable & adequate Hydration State: stable & adequate Anesthetic Complications: no major complications apparent and Pt Satisfied with anesthetic care
[2020-03-25] MEDS: PROPRANOLOL HCL 20 MG TAB PO SCH ×2 (09:44→21:29)
[2020-03-25] MEDS: CITALOPRAM 20 MG TAB PO SCH (09:44)
[2020-03-25] MEDS: FERROUS SULFATE 325 MG TAB PO SCH ×2 (09:44→21:28)
[2020-03-25] MEDS: SPIRONOLACTONE 25 MG TAB PO SCH (09:45)
[2020-03-25 13:31] LABS: Hematocrit (blood only) 27.7 % (42-52); Hemoglobin 8.2 g/dL (14.0-18.0)
[2020-03-25] MEDS ORDERED: Nursing to Pharmacy Communication ONE (16:21)
[2020-03-25] MEDS ORDERED: FUROSEMIDE 20 MG TAB PO SCH (16:30)
[2020-03-25] MEDS: PANTOprazole 40 MG TAB PO SCH (21:29)
[2020-03-25] MEDS: CEROVITE ADV FORMULA TAB PO SCH (21:29)
[2020-03-25] MEDS: CHOLECALCIFEROL 1,000 UNITS 25 MCG TAB PO SCH (21:30)
[2020-03-26] MEDS ORDERED: ALBUMIN 25% 50 ML IV ONE ×2 (00:25→08:00)
[2020-03-26] MEDS: ACETAMINOPHEN 325 MG TAB PO PRN ×2 (00:46→22:54)
[2020-03-26 01:20] LABS: Basophils # (auto) 0.01 K/uL (0-0.2); Basophils % (auto) 0.1 %; Eosinophils # (auto) 0.13 K/uL (0-0.5); Eosinophils % (auto) 1.3 %; Hematocrit (blood only) 27.7 % (42-52); Hemoglobin 8.4 g/dL (14.0-18.0); Immature Granulocytes # (auto) 0.07 K/uL (0.00-0.02); Immature Granulocytes % (auto) 0.7 %; Lymphocytes # (auto) 1.17 K/uL (1.2-3.4); Lymphocytes % (auto) 11.5 %; Mean Corpuscular Hemoglobin 25.8 pg (25-34); Mean Corpuscular Hgb Conc 30.3 g/dL (32-36); Mean Platelet Volume 10.8 fL (7.4-10.4); Monocytes # (auto) 0.36 K/uL (0.11-0.59); Monocytes % (auto) 3.5 %; Neutrophils # (auto) 8.44 K/uL (1.4-6.5); Neutrophils % (auto) 82.9 %; Platelet Count 122 K/uL (130-400); RDW Coefficient of Variation 18.5 % (11.5-14.5); RDW Standard Deviation 53.3 fL (36.4-46.3); Red Blood Count 3.26 M/uL (4.7-6.1); White Blood Count 10.18 K/uL (4.8-10.8)
[2020-03-26 01:29] LABS: Albumin Level 2.5 gm/dl (3.4-5.0); BUN Creatinine Ratio 22.8 (10-20); Creatinine Clr Calc Pharmacy 37.1 ml/min; Est GFR (African American) 39.8; Est GFR (Non-African American) 34.3; Magnesium 1.7 mg/dl (1.8-2.4); Potassium 4.3 mmol/L (3.5-5.1)
[2020-03-26 01:50] LABS: Albumin Globulin Ratio 0.5 (0.9-2); Bilirubin,Total 2.7 mg/dl (0.2-1); Globulin 4.8 gm/dl (2.5-4.0); Total Protein 7.3 gm/dl (6.4-8.2)
--- NOTE | 2020-03-26 06:55 | Communication Note ---
Date of Service: March 26, 2020 Made aware by RN of low-grade fever late last night. No abdominal pain/diarrhea/dysuria/cough symptoms as per RN. serum crea 1.94 from 1.76 AP Fever ARF on CRI possibly from overdiuresis Baseline UA Hold diuretics for now IV albumin 1 dose Will relay to AM provider.
--- NOTE | 2020-03-26 07:25 | Hospitalist Progress Note ---
Date of Service March 26, 2020 Assessment & Plan (1) Symptomatic anemia: This is a 69-year-old male with significant PMH of [place] cirrhosis, esophageal and gastric varices, GAVE, T2DM, CKD stage III, GERD, psoriasis presents to the ED at the referral of PCP. In ED he remained hemodynamically stable. His hemoglobin and hematocrit was 7.0 and 23.4, WBC 11.59, platelet 163, BUN 52, creatinine 1.76. His stool was positive for blood via FOBT (patient is also on iron supplement) He received IV protonix in ED. Pt had labwork in outpt setting 03/16 hgb 7.1 and iron studies which revealed significant iron deficiency anemia (ferritin 7.6, iron 29, total saturation 7%, TIBC 413) Patient is not exhibiting any hematemesis and does not report any melena or hematochezia, although his FOBT was positive GI has seen and evaluated patient in ED. S/p transfusion of 2 units pRBC on admission with 40mg IV lasix in between GI consulted Pt is now s/p EGD (03/25) no active bleeding found Continue protonix 40mg IV BID Discussed Ocretreotide with GI - given no findings of hematemesis/chezia likely not an acute bleed continue iron supplementation - consider iron infusion as outpt Repeat H&H post transfusion 8.9 (03/24), (03/25 AM) 8.5, then on on repeat (03/25) 8.2 Discussed with GI, they felt no need for colonoscopy, ok to d/c and follow up with [facility] hepatology. Paracentesis was also offered by GI team, patient declined. Given decrease in hemoglobin discussed this with the patient, and dec ided to observe pt overnight and recheck H&H in the morning, patient agreeable. This morning (03/26), hemoglobin stable 8.4 - will cont. to monitor Fever Concern for SBP -Patient spiked fever overnight 38C -Chest x-ray, UA, blood cultures obtained -Paracentesis, diagnostic ordered for this morning -Ceftriaxone and IV albumin started -Patient currently denies any abdominal pain, hemodynamically stable, -Continue to closely monitor -Once labs back from paracentesis, will further discuss with GI (2) Cirrhosis: FOFANA Cir[facility]osis [facility] hepatology this am hold lasix, aldactone (recently decreased both on 03/16 from Lasix 40mg to 20mg and Aldactone 100mg to 50mg) Takes lactulose prn, no s/sx of hepatic encephalopathy (3) Esophageal varices: continue propranolol GI consulted, no active variceal bleed found on EGD (4) GAVE (gastric antral vascular ectasia): continue propranolol GI on board (5) T2DM (type 2 diabetes mellitus): A1C 8.1 on 03/16 on glimepride at home hold and place on novolog SS per protocol if BSG consistently > 180 will add long acting insulin (6) CKD (chronic kidney disease) stage 3, GFR 30-59 ml/min: LUCRETIA on CKD baseline Cr 1.6-1.8 pt with pre renal insufficiency on CKD likely due to volume depletion 2/2 to Anemia 2 unit PRBC ordered with lasix in between, on admission - this AM 03/26, creatinine increased at 1.94, likely due to diuresis - Patient has ascites, will provide IV albumin - follow BMP (7) DVT prophylaxis: SCD/TEDS Disposition: med tele Follow up: PCP Dr. Hill upon discharge along with appropriate GI follow up/ [facility] Admission and Anticipated Discharge Date Admission Date: March 24, 2020 Subjective Patient spiked fever overnight, 38C. Admitted due to anemia, status post EGD yesterday, no active bleeding found on EGD. Hemoglobin down to 8.2 yesterday, pt was transfused 2 units of PRBCs on admission (Hgb 8.9 after transfusion). Currently patient sitting up in bed, in no acute distress. He denies any abdominal pain. He says that he did have a bowel movement, which was normal brown. He also reports that he felt warm last night and was not surprised when to he was told that he had a fever. Denies any chest pain, shortness of breath, cough. Also denies any nausea or vomiting. Discussed paracentesis, and patient agreeable for diagnostic purposes. Concern for SBP. Ceftriaxone started. Creatinine worsened possibly due to diuresis. IV albumin ordered by steam conditioning operator, will continue. Hemoglobin stable this a.m. Review of Systems Review of Systems: All systems reviewed & are unremarkable except as noted in HPI & below Constitutional: + fever Respiratory: no cough and no dyspnea Cardiovascular: no chest pain and no palpitations Gastrointestinal: no abdominal pain, no nausea and no vomiting Physical Exam Physical Exam: Constitutional: WD/WN, Pale, M, vitals as above, NAD, sitting up in bed, in no acute distress Head: Normocephalic, Atraumatic Eyes: PERRL, EOMI, conjunctivae normal, anicteric sclerae ENMT: external ear and nose normal, oropharynx normal Neck: trachea midline, no thyromegaly normal visual inspection Respiratory: normal respiratory effort, lungs clear to auscultation, no wheeze, rales, rhonchi. Normal insp/exp effort, no accessory muscle use Cardiovascular: RRR, 2/6 WINTER noted cardiac apex, no edema Vessels: no JVD or carotid bruit Chest: normal inspection of chest Abdomen:+distended abdomen 2/2 to ascites, protuberant, normal bowel sounds, soft, nontender to palp. Musculoskeletal: no cyanosis or clubbing, extremities motor strength 5/5 Skin: no rashes, warm and dry Neurologic: PERRL, EOMI, accommodation nl, no face palsy, no dysarthria CN's II-XI intact bilaterally and moves all extremities Psychiatric: A+Ox3, euthymic affect Results & Data Results & Data ([facility]) Vital Signs (Past 12 Hours) Vital Signs Temp Pulse Pulse Resp BP Pulse Ox 03/26/20 07:10 37.2 C 105 H 20 113/63 97 03/26/20 04:00 37.3 C 64 20 113/60 96 03/26/20 02:08 63 03/26/20 01:42 37.2 C 03/26/20 00:42 37.7 C H 65 18 116/66 95 03/25/20 23:51 37.6 C H 03/25/20 23:02 38 C H 68 18 117/65 95 03/25/20 19:34 37.3 C 65 17 125/60 98 Laboratory Results 03/26/20 03/26/20 03/25/20 Range/Units 00:56 00:56 20:33 WBC 10.18 (4.8-10.8) K/uL RBC 3.26 L (4.7-6.1) M/uL Hgb 8.4 L (14.0-18.0) g/dL Hct 27.7 L (42-52) % MCV 85.0 (80-100) fL MCH 25.8 (25-34) pg MCHC 30.3 L (32-36) g/dL RDW Std Deviation 53.3 H (36.4-46.3) fL RDW Coeff of Violetta 18.5 H (11.5-14.5) % Plt Count 122 L (130-400) K/uL MPV 10.8 H (7.4-10.4) fL Immature Gran % (Auto) 0.7 % Neut % (Auto) 82.9 % Lymph % (Auto) 11.5 % Banks % (Auto) 3.5 % Eos % (Auto) 1.3 % Baso % (Auto) 0.1 % Immature Gran # (Auto) 0.07 H (0.00-0.02) K/uL Neut # (Auto) 8.44 H (1.4-6.5) K/uL Lymph # (Auto) 1.17 L (1.2-3.4) K/uL Banks # (Auto) 0.36 (0.11-0.59) K/uL Eos # (Auto) 0.13 (0-0.5) K/uL Baso # (Auto) 0.01 (0-0.2) K/uL Sodium 139 (136-145) mmol/L Potassium 4.3 (3.5-5.1) mmol/L Chloride 113 H (98-107) mmol/L Carbon Dioxide 21 (21-32) mmol/L Anion Gap 5.0 (3-11) BUN 44 H (7-18) mg/dl Creatinine 1.94 H (0.6-1.4) mg/dl Est Cr Clr Drug Dosing 37.1 ml/min Est GFR ( Amer) 39.8 Est GFR (Non-Af Amer) 34.3 BUN/Creatinine Ratio 22.8 H (10-20) Glucose 143 H (70-99) mg/dl POC Glucose 137 H (70-99) mg/dl Calcium 8.0 L (8.5-10.1) mg/dl Magnesium 1.7 L (1.8-2.4) mg/dl Total Bilirubin 2.7 H (0.2-1) mg/dl AST 31 (15-37) U/L ALT 27 (12-78) U/L Alkaline Phosphatase 129 H (45-117) U/L Total Protein 7.3 (6.4-8.2) gm/dl Albumin 2.5 L (3.4-5.0) gm/dl Globulin 4.8 H (2.5-4.0) gm/dl Albumin/Globulin Ratio 0.5 L (0.9-2) 03/25/20 03/25/20 03/25/20 Range/Units 16:13 12:57 11:38 WBC (4.8-10.8) K/uL RBC (4.7-6.1) M/uL Hgb 8.2 L (14.0-18.0) g/dL Hct 27.7 L (42-52) % MCV (80-100) fL MCH (25-34) pg MCHC (32-36) g/dL RDW Std Deviation (36.4-46.3) fL RDW Coeff of Violetta (11.5-14.5) % Plt Count (130-400) K/uL MPV (7.4-10.4) fL Immature Gran % (Auto) % Neut % (Auto) % Lymph % (Auto) % Banks % (Auto) % Eos % (Auto) % Baso % (Auto) % Immature Gran # (Auto) (0.00-0.02) K/uL Neut # (Auto) (1.4-6.5) K/uL Lymph # (Auto) (1.2-3.4) K/uL Banks # (Auto) (0.11-0.59) K/uL Eos # (Auto) (0-0.5) K/uL Baso # (Auto) (0-0.2) K/uL Sodium (136-145) mmol/L Potassium (3.5-5.1) mmol/L Chloride (98-107) mmol/L Carbon Dioxide (21-32) mmol/L Anion Gap (3-11) BUN (7-18) mg/dl Creatinine (0.6-1.4) mg/dl Est Cr Clr Drug Dosing ml/min Est GFR ( Amer) Est GFR (Non-Af Amer) BUN/Creatinine Ratio (10-20) Glucose (70-99) mg/dl POC Glucose 286 H 193 H (70-99) mg/dl Calcium (8.5-10.1) mg/dl Magnesium (1.8-2.4) mg/dl Total Bilirubin (0.2-1) mg/dl AST (15-37) U/L ALT (12-78) U/L Alkaline Phosphatase (45-117) U/L Total Protein (6.4-8.2) gm/dl Albumin (3.4-5.0) gm/dl Globulin (2.5-4.0) gm/dl Albumin/Globulin Ratio (0.9-2)
[2020-03-26] MEDS: cefTRIAXone SODIUM 1,000 MG in DEXTROSE 5% 50 ML IV SCH (07:41)
--- NOTE | 2020-03-26 07:46 | XRay Report ---
XR chest 1V portable CLINICAL HISTORY: fever COMPARISON STUDY: Chest radiograph March 24, 2020. FINDINGS: Lung volumes are normal. Lungs are clear. There is no pneumothorax. May be a trace right pl eural effusion. Cardiac size is normal. Mediastinal contours are normal. There is no evidence for pul monary edema. Patient is mildly rotated. IMPRESSION: Possible trace right pleural effusion. ACT 112: Negative or not required by law. Electronically signed by: Elan Alexander M.D. 03/26/2020 7:44 AM
[2020-03-26] MEDS: INSULIN ASPART 100 UNITS/ML 3 ML PEN SC SCH ×4 (08:21→21:00)
[2020-03-26] MEDS: PANTOprazole 40 MG TAB PO SCH ×2 (08:53→20:59)
[2020-03-26] MEDS: CITALOPRAM 20 MG TAB PO SCH (08:53)
[2020-03-26] MEDS: MAGNESIUM OXIDE 400 MG TAB PO SCH (08:53)
[2020-03-26] MEDS: FERROUS SULFATE 325 MG TAB PO SCH ×2 (08:54→20:59)
[2020-03-26] MEDS: PROPRANOLOL HCL 20 MG TAB PO SCH ×2 (08:54→20:58)
--- NOTE | 2020-03-26 10:11 | Ultrasound Report ---
ULTRASOUND GUIDED DIAGNOSTIC PARACENTESIS CLINICAL HISTORY: poss. SBP COMPARISON STUDY: Ultrasound guided paracentesis February 04, 2020. PROCEDURE: The risks, benefits, and alternatives to the procedure were discussed with the patient inc luding the risk of bleeding, infection and injury to adjacent structures. The patient agreed to the procedure and informed written consent was obtained. Following real-time ultrasound localization, the skin was prepped and draped. Following local anesthesia with Xylocaine, 50 cc of turbid yellowish as cites was aspirated. This was sent to the laboratory. The patient tolerated the procedure well and no immediate complications were evident. IMPRESSION: Ultrasound-guided diagnostic paracentesis with removal of 50 cc of yellowish turbid, pos sibly chylous, ascites. The fluid was sent to the laboratory for analysis as ordered. ACT 112: Negative or not required by law. Electronically signed by: Elan Alexander M.D. 03/26/2020 10:09 AM
[2020-03-26 10:51] LABS: Appearance Urine Clear (Clear); Bilirubin Urine Negative (Negative); Blood Urine Negative (Negative); Color Urine Dark Yellow; Glucose Urine UA Negative (Negative); Ketones Urine Negative (Negative); Leukocyte Esterase Urine Negative (Negative); Nitrite Urine Negative (Negative); Protein Urine Negative (Negative); Specific Gravity Urine 1.023 (1.000-1.030); Urobilinogen Urine Negative (Negative)
[2020-03-26 11:35] LABS: Albumin Peritoneal Fluid 0.8 g/dl
[2020-03-26 12:01] LABS: Appearance Peritoneal Fluid CLOUDY; Basophils, Fluid 0 %; Color Peritoneal Fluid PALE YELLOW; Eosinophils, Fluid 0 %; Lymphocytes, Fluid 38 %; Mono,Macrophage,Mesothelial 53 %; Neutrophils, Fluid 9 %; RBC Peritoneal Fluid (A) 3000 /uL; WBC Peritoneal Fluid (A) 442 /ul (0-300)
[2020-03-26] MEDS: ALBUMIN 25% 50 ML IV SCH ×3 (15:40→23:41)
[2020-03-26] MEDS: CHOLECALCIFEROL 1,000 UNITS 25 MCG TAB PO SCH (20:57)
[2020-03-26] MEDS: CEROVITE ADV FORMULA TAB PO SCH (20:59)
[2020-03-27 05:33] LABS: Hematocrit (blood only) 24.8 % (42-52); Hemoglobin 7.6 g/dL (14.0-18.0); Mean Corpuscular Hemoglobin 26.8 pg (25-34); Mean Corpuscular Hgb Conc 30.6 g/dL (32-36); Mean Corpuscular Volume 87.3 fL (80-100); RDW Coefficient of Variation 18.9 % (11.5-14.5); RDW Standard Deviation 57.3 fL (36.4-46.3); Red Blood Count 2.84 M/uL (4.7-6.1); White Blood Count 6.43 K/uL (4.8-10.8)
[2020-03-27 06:01] LABS: Albumin Level 2.9 gm/dl (3.4-5.0); BUN Creatinine Ratio 27.3 (10-20); Calcium 8.1 mg/dl (8.5-10.1); Creatinine Clr Calc Pharmacy 42.1 ml/min; Est GFR (African American) 46.3; Potassium 3.9 mmol/L (3.5-5.1)
[2020-03-27 06:10] LABS: Mean Platelet Volume 10.7 fL (7.4-10.4); Platelet Count 87 K/uL (130-400); Platelet Estimate Decreased (Normal)
[2020-03-27 06:23] LABS: Albumin Globulin Ratio 0.7 (0.9-2); Bilirubin,Total 1.5 mg/dl (0.2-1); Total Protein 6.9 gm/dl (6.4-8.2)
[2020-03-27] MEDS: MAGNESIUM OXIDE 400 MG TAB PO SCH (07:37)
[2020-03-27] MEDS: ALBUMIN 25% 50 ML IV SCH ×2 (07:37→15:28)
[2020-03-27] MEDS: CITALOPRAM 20 MG TAB PO SCH (07:37)
[2020-03-27] MEDS: FERROUS SULFATE 325 MG TAB PO SCH ×2 (07:37→22:52)
[2020-03-27] MEDS: PANTOprazole 40 MG TAB PO SCH ×2 (07:37→22:54)
[2020-03-27] MEDS: PROPRANOLOL HCL 20 MG TAB PO SCH ×2 (07:38→22:52)
--- NOTE | 2020-03-27 08:22 | Hospitalist Progress Note ---
Date of Service March 27, 2020 Assessment & Plan (1) Symptomatic anemia: This is a 69-year-old male with significant PMH of [place] cirrhosis, esophageal and gastric varices, GAVE, T2DM, CKD stage III, GERD, psoriasis presents to the ED at the referral of PCP. In ED he remained hemodynamically stable. His hemoglobin and hematocrit was 7.0 and 23.4, WBC 11.59, platelet 163, BUN 52, creatinine 1.76. His stool was positive for blood via FOBT (patient is also on iron supplement) He received IV protonix in ED. Pt had labwork in outpt setting 03/16 hgb 7.1 and iron studies which revealed significant iron deficiency anemia (ferritin 7.6, iron 29, total saturation 7%, TIBC 413) Patient is not exhibiting any hematemesis and does not report any melena or hematochezia, although his FOBT was positive GI has seen and evaluated patient in ED. S/p transfusion of 2 units pRBC on admission with 40mg IV lasix in between GI consulted Discussed Octreotide with GI - given no findings of hematemesis/chezia likely not an acute bleed Pt is now s/p EGD (03/25) no active bleeding found Continue protonix 40mg IV BID continue iron supplementation - consider iron infusion as outpt Repeat H&H post transfusion 8.9 (03/24), (03/25 AM) 8.5, then on repeat (03/25) 8.2 Discussed with GI, they felt no need for colonoscopy, ok to d/c and follow up with [facility] hepatology. Paracentesis was also offered by GI team, patient declined. Given decrease in hemoglobin discussed this with the patient, and decided to observe pt overnight and recheck H&H in the morning, patient agreeable. Next morning (03/26), hemoglobin stable 8.4 This AM (03/27) Hgb 7.6, H&H ordered at noon to recheck - will cont. to monitor Fever Concern for SBP -Patient spiked fever overnight 03/26, 38C -Chest x-ray - negative, UA- negative, blood cultures - pending -Paracentesis, diagnostic ordered -Ceftriaxone and IV albumin started -Patient denies any abdominal pain, hemodynamically stable -Ascitic fluid not consistent with SBP (WBC ~ 440/uL, only 9% neutrophils) -Other results of ascitic fluid discussed with GI, nonspecific -Fever again overnight 38.1 Celsius, despite being on ceftriaxone -Switched antibiotics to Vanco and Zosyn, awaiting cultures -Continue to closely monitor (2) Cirrhosis: FOFANA Cirrhosis Follows [facility] and [facility] hepatology at home on lasix, aldactone (recently decreased both on 03/16 from Lasix 40mg to 20mg and Aldactone 100mg to 50mg) We will assess daily, need for diuretics Takes lactulose prn, no s/sx of hepatic encephalopathy (3) Esophageal varices: continue propranolol GI consulted, no active variceal bleed found on EGD (4) GAVE (gastric antral vascular ectasia): continue propranolol GI on board (5) T2DM (type 2 diabetes mellitus): A1C 8.1 on 03/16 on glimepride at home hold and place on novolog SS per protocol if BSG consistently > 180 will add long acting insulin (6) CKD (chronic kidney disease) stage 3, GFR 30-59 ml/min: LUCRETIA on CKD baseline Cr 1.6-1.8 pt with pre renal insufficiency on CKD likely due to volume depletion 2/2 to Anemia 2 unit pRBCs received with lasix in between, on admission - AM 03/26, creatinine increased at 1.94, likely due to diuresis - Patient has ascites, will provide IV albumin - follow BMP, now down to 1.7 (7) DVT prophylaxis: SCD/TEDS Disposition: med tele Follow up: PCP Dr. Hill upon discharge along with appropriate GI follow up/ [facility] hepatology Admission and Anticipated Discharge Date Admission Date: March 24, 2020 Subjective Patient spiked fever overnight again, 38.1C. Despite being on antibiotics. Admitted due to anemia, status post EGD, no active bleeding found on EGD. Received 2 units of pRBCs on admission. Currently patient sitting up in bed, in no acute distress. He denies any abdominal pain. He says that he did have a bowel movement, which was normal brown. He also reports that he felt warm last night again. Denies any chest pain, shortness of breath, cough. Also denies any nausea or vomiting. Concern for SBP. Ceftriaxone, IV albumin started yesterday. s/p diagnostic paracentesis yesterday (03/26). Analysis of ascitic fluid not consistent with SBP. Hemoglobin down to 7.6. [employer] reordered H&H check at noon. Review of Systems Review of Systems: All systems reviewed & are unremarkable except as noted in HPI & below Constitutional: + fever Respiratory: no cough and no dyspnea Cardiovascular: no chest pain and no palpitations Gastrointestinal: no abdominal pain, no nausea, no vomiting, no diarrhea/loose stools and no blood in stools Physical Exam Physical Exam: Constitutional: WD/WN, Pale, M, vitals as above, NAD, sitting up in bed, in no acute distress Head: Normocephalic, Atraumatic Eyes: PERRL, EOMI, conjunctivae normal, anicteric sclerae ENMT: external ear and nose normal, oropharynx normal Neck: trachea midline, no thyromegaly normal visual inspection Respiratory: normal respiratory effort, lungs clear to auscultation, no wheeze, rales, rhonchi. Normal insp/exp effort, no accessory muscle use Cardiovascular: RRR, 2/6 WINTER noted cardiac apex, no edema Vessels: no JVD or carotid bruit Chest: normal inspection of chest Abdomen:+ somewhat distended abdomen 2/2 to ascites, protuberant, normal bowel sounds, soft, nontender to palpation Musculoskeletal: no cyanosis or clubbing, extremities motor strength 5/5 Skin: no rashes, warm and dry Neurologic: PERRL, EOMI, accommodation nl, no face palsy, no dysarthria CN's II-XI intact bilaterally and moves all extremities Psychiatric: A+Ox3, euthymic affect Results & Data Results & Data ([facility]) Vital Signs (Past 12 Hours) Vital Signs Temp Pulse Pulse Resp BP BP Pulse Ox 03/27/20 07:23 37.0 C 55 L 18 120/64 97 03/27/20 03:00 37.1 C 57 L 20 116/62 95 03/27/20 00:17 67 03/26/20 23:00 38.1 C H 68 20 106/54 L 95 03/26/20 20:50 74 111/63 Laboratory Results 03/27/20 03/27/20 03/27/20 Range/Units 07:42 05:24 05:24 WBC 6.43 (4.8-10.8) K/uL RBC 2.84 L (4.7-6.1) M/uL Hgb 7.6 L (14.0-18.0) g/dL Hct 24.8 L (42-52) % MCV 87.3 (80-100) fL MCH 26.8 (25-34) pg MCHC 30.6 L (32-36) g/dL RDW Std Deviation 57.3 H (36.4-46.3) fL RDW Coeff of [place] 18.9 H (11.5-14.5) % Plt Count 87 L (130-400) K/uL MPV 10.7 H (7.4-10.4) fL Platelet Estimate Decreased L (Normal) Sodium 141 (136-145) mmol/L Potassium 3.9 (3.5-5.1) mmol/L Chloride 114 H (98-107) mmol/L Carbon Dioxide 21 (21-32) mmol/L Anion Gap 6.0 (3-11) BUN 47 H (7-18) mg/dl Creatinine 1.71 H (0.6-1.4) mg/dl Est Cr Clr Drug Dosing 42.1 ml/min Est GFR ( Amer) 46.3 Est GFR (Non-Af Amer) 40.0 BUN/Creatinine Ratio 27.3 H (10-20) Glucose 152 H (70-99) mg/dl POC Glucose 184 H (70-99) mg/dl Calcium 8.1 L (8.5-10.1) mg/dl Total Bilirubin 1.5 H (0.2-1) mg/dl AST 20 (15-37) U/L ALT 23 (12-78) U/L Alkaline Phosphatase 130 H (45-117) U/L Total Protein 6.9 (6.4-8.2) gm/dl Albumin 2.9 L (3.4-5.0) gm/dl Globulin 4.0 (2.5-4.0) gm/dl Albumin/Globulin Ratio 0.7 L (0.9-2) Urine Color Urine Appearance (Clear) Urine pH (4.5-7.5) Ur Specific [place] (1.000-1.030) Urine Protein (Negative) Urine Glucose (UA) (Negative) Urine Ketones (Negative) Urine Blood (Negative) Urine Nitrite (Negative) Urine Bilirubin (Negative) Urine Urobilinogen (Negative) Ur Leukocyte Esterase (Negative) Fluid Neutrophils % % Fluid Lymphocytes % % Fluid Eosinophils % % Fluid Basophils % % Fluid [place] % % Peritoneal Color Peritoneal Appearance Peritoneal WBC (0-300) /ul Peritoneal RBC /uL Peritoneal Tot Protein g/dl Peritoneal Albumin 03/26/20 03/26/20 03/26/20 Range/Units 20:46 16:43 11:25 WBC (4.8-10.8) K/uL RBC (4.7-6.1) M/uL Hgb (14.0-18.0) g/dL Hct (42-52) % MCV (80-100) fL MCH (25-34) pg MCHC (32-36) g/dL RDW Std Deviation (36.4-46.3) fL RDW Coeff of [place] (11.5-14.5) % Plt Count (130-400) K/uL MPV (7.4-10.4) fL Platelet Estimate (Normal) Sodium (136-145) mmol/L Potassium (3.5-5.1) mmol/L Chloride (98-107) mmol/L Carbon Dioxide (21-32) mmol/L Anion Gap (3-11) BUN (7-18) mg/dl Creatinine (0.6-1.4) mg/dl Est Cr Clr Drug Dosing ml/min Est GFR ( Amer) Est GFR (Non-Af Amer) BUN/Creatinine Ratio (10-20) Glucose (70-99) mg/dl POC Glucose 256 H 219 H 252 H (70-99) mg/dl Calcium (8.5-10.1) mg/dl Total Bilirubin (0.2-1) mg/dl AST (15-37) U/L ALT (12-78) U/L Alkaline Phosphatase (45-117) U/L Total Protein (6.4-8.2) gm/dl Albumin (3.4-5.0) gm/dl Globulin (2.5-4.0) gm/dl Albumin/Globulin Ratio (0.9-2) Urine Color Urine Appearance (Clear) Urine pH (4.5-7.5) Ur Specific [place] (1.000-1.030) Urine Protein (Negative) Urine Glucose (UA) (Negative) Urine Ketones (Negative) Urine Blood (Negative) Urine Nitrite (Negative) Urine Bilirubin (Negative) Urine Urobilinogen (Negative) Ur Leukocyte Esterase (Negative) Fluid Neutrophils % % Fluid Lymphocytes % % Fluid Eosinophils % % Fluid Basophils % % Fluid [place] % % Peritoneal Color Peritoneal Appearance Peritoneal WBC (0-300) /ul Peritoneal RBC /uL Peritoneal Tot Protein g/dl Peritoneal Albumin 03/26/20 03/26/20 03/26/20 Range/Units 10:33 10:00 10:00 WBC (4.8-10.8) K/uL RBC (4.7-6.1) M/uL Hgb (14.0-18.0) g/dL Hct (42-52) % MCV (80-100) fL MCH (25-34) pg MCHC (32-36) g/dL RDW Std Deviation (36.4-46.3) fL RDW Coeff of [place] (11.5-14.5) % Plt Count (130-400) K/uL MPV (7.4-10.4) fL Platelet Estimate (Normal) Sodium (136-145) mmol/L Potassium (3.5-5.1) mmol/L Chloride (98-107) mmol/L Carbon Dioxide (21-32) mmol/L Anion Gap (3-11) BUN (7-18) mg/dl Creatinine (0.6-1.4) mg/dl Est Cr Clr Drug Dosing ml/min Est GFR ( Amer) Est GFR (Non-Af Amer) BUN/Creatinine Ratio (10-20) Glucose (70-99) mg/dl POC Glucose (70-99) mg/dl Calcium (8.5-10.1) mg/dl Total Bilirubin (0.2-1) mg/dl AST (15-37) U/L ALT (12-78) U/L Alkaline Phosphatase (45-117) U/L Total Protein (6.4-8.2) gm/dl Albumin (3.4-5.0) gm/dl Globulin (2.5-4.0) gm/dl Albumin/Globulin Ratio (0.9-2) Urine Color Dark Yellow Urine Appearance Clear (Clear) Urine pH 5.0 (4.5-7.5) Ur Specific [place] 1.023 (1.000-1.030) Urine Protein Negative (Negative) Urine Glucose (UA) Negative (Negative) Urine Ketones Negative (Negative) Urine Blood Negative (Negative) Urine Nitrite Negative (Negative) Urine Bilirubin Negative (Negative) Urine Urobilinogen Negative (Negative) Ur Leukocyte Esterase Negative (Negative) Fluid Neutrophils % 9 % Fluid Lymphocytes % 38 % Fluid Eosinophils % 0 % Fluid Basophils % 0 % Fluid [place]ro/[place] % 53 % Peritoneal Color PALE YELLOW Peritoneal Appearance CLOUDY Peritoneal WBC 442 H (0-300) /ul Peritoneal RBC 3000 /uL Peritoneal Tot Protein 2.0 g/dl Peritoneal Albumin 0.8 04/25/20 Range/Units 10:00 WBC (4.8-10.8) K/uL RBC (4.7-6.1) M/uL Hgb (14.0-18.0) g/dL Hct (42-52) % MCV (80-100) fL MCH (25-34) pg MCHC (32-36) g/dL RDW Std Deviation (36.4-46.3) fL RDW Coeff of [place] (11.5-14.5) % Plt Count (130-400) K/uL MPV (7.4-10.4) fL Platelet Estimate (Normal) Sodium (136-145) mmol/L Potassium (3.5-5.1) mmol/L Chloride (98-107) mmol/L Carbon Dioxide (21-32) mmol/L Anion Gap (3-11) BUN (7-18) mg/dl Creatinine (0.6-1.4) mg/dl Est Cr Clr Drug Dosing ml/min Est GFR ( Amer) Est GFR (Non-Af Amer) BUN/Creatinine Ratio (10-20) Glucose (70-99) mg/dl POC Glucose (70-99) mg/dl Calcium (8.5-10.1) mg/dl Total Bilirubin (0.2-1) mg/dl AST (15-37) U/L ALT (12-78) U/L Alkaline Phosphatase (45-117) U/L Total Protein (6.4-8.2) gm/dl Albumin (3.4-5.0) gm/dl Globulin (2.5-4.0) gm/dl Albumin/Globulin Ratio (0.9-2) Urine Color Urine Appearance (Clear) Urine pH (4.5-7.5) Ur Specific [place] (1.000-1.030) Urine Protein (Negative) Urine Glucose (UA) (Negative) Urine Ketones (Negative) Urine Blood (Negative) Urine Nitrite (Negative) Urine Bilirubin (Negative) Urine Urobilinogen (Negative) Ur Leukocyte Esterase (Negative) Fluid Neutrophils % % Fluid Lymphocytes % % Fluid Eosinophils % % Fluid Basophils % % Fluid [place] % % Peritoneal Color Peritoneal Appearance Peritoneal WBC (0-300) /ul Peritoneal RBC /uL Peritoneal Tot Protein g/dl Peritoneal Albumin Cancelled Medications Administered Current Inpatient Medications Acetaminophen (Tylenol) 325 mg PO Q6H PRN PRN Reason: Mild Pain Stop: 04/25/20 00:22 Last Admin: 03/26/20 22:54 Dose: 325 mg Documented by: Citalopram Hydrobromide (Celexa) 10 mg PO QAM [facility] Stop: 04/24/20 08:59 Last Admin: 03/27/20 07:37 Dose: 10 mg Documented by: Dextrose (Dextrose 50%) 25 - 50 ml IV UD PRN; Protocol PRN Reason: Hypoglycemia Protocol Stop: 04/23/20 14:27 Ferrous Sulfate (Feosol) 325 mg PO BID [facility] Stop: 04/23/20 20:59 Last Admin: 03/27/20 07:37 Dose: 325 mg Documented by: Furosemide (Lasix) 20 mg PO QAM [facility] Stop: 04/24/20 16:29 Last Admin: 03/25/20 17:30 Dose: 20 mg Documented by: Glucagon (Glucagen) 1 mg SQ UD PRN; Protocol PRN Reason: Hypoglycemia Protocol Stop: 04/23/20 14:27 Glucose (Dex4 Glucose) 4 - 8 tabs PO UD PRN; Protocol PRN Reason: Hypoglycemia Protocol Stop: 04/23/20 14:27 Glucose (Glucose 40%) 15 - 30 gm PO UD PRN; Protocol PRN Reason: Hypoglycemia Protocol Stop: 04/23/20 14:27 Ceftriaxone Sodium 1,000 mg/ (Dextrose) 50 mls @ 100 mls/hr IV Q24H JODI; Prot ocol Stop: 03/28/20 07:59 Last Infusion: 03/26/20 08:30 Dose: Infused Documented by: Albumin Human (Albumin 25%) 50 mls @ 50 mls/hr IV Q8H [facility]ODI Stop: 03/30/20 00:00 Last Admin: 03/27/20 07:37 Dose: 50 mls/hr Documented by: Insulin Aspart (Novolog Flexpen) 0 units SC ACHS [facility] Stop: 04/24/20 16:39 Last Admin: 03/26/20 21:00 Dose: 3 units Documented by: Lactulose (Chronulac) 10 gm PO TID PRN PRN Reason: CONSTIPATION Stop: 04/23/20 14:50 Magnesium Oxide (Mag-Ox) 400 mg PO QAM [facility] Stop: 04/25/20 08:59 Last Admin: 03/27/20 07:37 Dose: 400 mg Documented by: Miscellaneous (Carbohydrates For Hypoglycemia) 15 - 30 gm PO UD PRN PRN Reason: Hypoglycemia Protocol Stop: 04/23/20 14:27 Multivitamins/Minerals (Multivitamin W/ Minerals Tab) 1 tab PO [facility] Stop: 04/23/20 20:59 Last Admin: 03/26/20 20:59 Dose: 1 tab Documented by: Ondansetron HCl (Zofran) 4 mg IV Q6H PRN PRN Reason: Nausea Stop: 04/23/20 14:27 Pantoprazole Sodium (Protonix) 40 mg PO BID [facility] Stop: 04/24/20 20:59 Last Admin: 03/27/20 07:37 Dose: 40 mg Documented by: Polyethylene Glycol (Miralax Powder Packet) 17 gm PO DAILY PRN PRN Reason: Constipation Stop: 04/23/20 14:27 Propranolol HCl (Inderal) 40 mg PO BID [facility] Stop: 04/23/20 20:59 Last Admin: 03/27/20 07:38 Dose: 40 mg Documented by: Spironolactone (Aldactone) 50 mg PO QAM [facility] Stop: 04/23/20 14:27 Last Admin: 03/25/20 09:45 Dose: 50 mg Documented by: Vitamin D (Vitamin D3) 1,000 units PO [facility] Stop: 04/23/20 20:59 Last Admin: 03/26/20 20:57 Dose: 1,000 units Documented by:
[2020-03-27] MEDS: cefTRIAXone SODIUM 1,000 MG in DEXTROSE 5% 50 ML IV SCH (08:36)
[2020-03-27] MEDS: INSULIN ASPART 100 UNITS/ML 3 ML PEN SC SCH ×4 (08:37→22:53)
[2020-03-27] MEDS: SPIRONOLACTONE 25 MG TAB PO SCH (08:38)
[2020-03-27] MEDS ORDERED: VANCOMYCIN CONSULT ACTIVE PRN (09:41)
[2020-03-27] MEDS ORDERED: PIPERACILL/TAZOBAC CONSULT ACTIVE PRN (09:45)
[2020-03-27] MEDS ORDERED: VANCOMYCIN HCL 1,750 MG in SODIUM CHLORIDE 0.9% 500 ML IV ONE (10:15)
[2020-03-27] MEDS ORDERED: PIPERACILLIN/TAZOBACTAM 4.5 GM in DEXTROSE 5% 100 ML IV ONE (10:15)
[2020-03-27 12:09] LABS: Hematocrit (blood only) 25.1 % (42-52); Hemoglobin 7.6 g/dL (14.0-18.0)
--- NOTE | 2020-03-27 14:18 | Ultrasound Report ---
US venous doppler LE BI HISTORY: Pain. Dyspnea. fever COMPARISON STUDY: None. FINDINGS: There is normal compressibility, flow, and augmentation within the bilateral lower extremit y deep venous systems. IMPRESSION: No DVT within the right or left lower extremity. ACT 112: Negative or not required by law. The above report was generated using voice recognition software. It may contain grammatical, syntax or spelling errors. Electronically signed by: Kevin Padilla M.D. 03/27/2020 2:16 PM
--- NOTE | 2020-03-27 14:45 | Pharmacy Report ---
Pharmacy Abx Initial Consult - Date of Service March 27, 2020 - Pharmacy Dosing Scope Date of Consult: 03/27/20 Consultation requested by: Dr. Tapia Pharmacy is consulted to initiate vancomycin and Zosyn IV dosing therapy, order appropriate labs and adjust drug dose/frequency. - Subjective The patient is a 69 year old M admitted on 03/24/20 12:06. - Objective Height: 5 ft 10 in Weight: 80.6 kg Vital Signs (Past 12hrs): Vital Signs Temp Pulse Resp BP BP Pulse Ox 03/27/20 12:00 36.8 C 104 H 18 97/65 L 99 03/27/20 07:23 37.0 C 55 L 18 120/64 97 03/27/20 03:00 37.1 C 57 L 20 116/62 95 Lab Results (24hrs): Laboratory Tests (24 Hours) 03/27/20 03/27/20 05:24 05:24 WBC 6.43 Creatinine 1.71 H Est Cr Clr Drug Dosing 42.1 Micro Results: 03/26/20 10:00 Gram Stain - Final Abdomen - Assessment & Plan Assessment 69 year old M ordered empiric vancomycin and Zosyn due to persistent fever despite treatment with ceftriaxone. Patient has FOFANA cirrhosis. Diagnostic paracentesis completed yesterday - SBP appears unlikely based on PMNs of approximately 40. Tmax 38.1 C last evening. Blood and abdominal cultures (03/26): pending Plan Vancomycin IV * Estimated PK Parameters: Vd 0.7 L/kg, Trent 0.039 hr-1, t1/2 18 hr * Loading dose: 1750 mg (22 mg/kg) * Maintenance dose: 1500 mg IV (18 mg/kg) every 24 hours * Goal trough level for this empiric indication : 15 to 20 mcg/mL * Will order vanco trough if antibiotics are to be continued beyond 48 hours Piperacillin/tazobactam * 4.5 g bolus administered over 30 minutes, then 3.375 g IV extended infusion every 8 hours for CrCl greater than 20 mL/min Pharmacy will continue to follow and will adjust dose/frequency as necessary. Thank you.
[2020-03-27] MEDS: PIPERACILLIN/TAZOBACTAM 3.375 GM in DEXTROSE 5% 100 ML IV SCH (16:26)
[2020-03-27] MEDS: CEROVITE ADV FORMULA TAB PO SCH (22:52)
[2020-03-27] MEDS: CHOLECALCIFEROL 1,000 UNITS 25 MCG TAB PO SCH (22:55)
[2020-03-28] MEDS: ALBUMIN 25% 50 ML IV SCH ×2 (00:50→07:44)
[2020-03-28] MEDS: PIPERACILLIN/TAZOBACTAM 3.375 GM in DEXTROSE 5% 100 ML IV SCH ×2 (01:59→08:41)
[2020-03-28 06:35] LABS: Hemoglobin 8.5 g/dL (14.0-18.0); Mean Corpuscular Hemoglobin 26.7 pg (25-34); Mean Corpuscular Hgb Conc 30.4 g/dL (32-36); Mean Corpuscular Volume 88.1 fL (80-100); RDW Coefficient of Variation 19.3 % (11.5-14.5); RDW Standard Deviation 59.5 fL (36.4-46.3); Red Blood Count 3.18 M/uL (4.7-6.1); White Blood Count 5.97 K/uL (4.8-10.8)
[2020-03-28 06:50] LABS: Mean Platelet Volume 10.8 fL (7.4-10.4); Platelet Count 97 K/uL (130-400)
[2020-03-28 07:18] LABS: Albumin Level 3.1 gm/dl (3.4-5.0); BUN Creatinine Ratio 24.3 (10-20); Calcium 8.3 mg/dl (8.5-10.1); Creatinine Clr Calc Pharmacy 40.9 ml/min; Est GFR (African American) 44.7; Est GFR (Non-African American) 38.6; Potassium 4.3 mmol/L (3.5-5.1)
[2020-03-28 07:21] LABS: Albumin Globulin Ratio 0.7 (0.9-2); Bilirubin,Total 1.5 mg/dl (0.2-1); Globulin 4.5 gm/dl (2.5-4.0); Total Protein 7.6 gm/dl (6.4-8.2)
--- NOTE | 2020-03-28 07:39 | Hospitalist Progress Note ---
Date of Service March 28, 2020 Assessment & Plan (1) Symptomatic anemia: This is a 69-year-old male with significant PMH of [place] cirrhosis, esophageal and gastric varices, GAVE, T2DM, CKD stage III, GERD, psoriasis presents to the ED at the referral of PCP. In ED he remained hemodynamically stable. His hemoglobin and hematocrit was 7.0 and 23.4, WBC 11.59, platelet 163, BUN 52, creatinine 1.76. His stool was positive for blood via FOBT (patient is also on iron supplement) He received IV protonix in ED. Pt had labwork in outpt setting 03/16 hgb 7.1 and iron studies which revealed significant iron deficiency anemia (ferritin 7.6, iron 29, total saturation 7%, TIBC 413) Patient is not exhibiting any hematemesis and does not report any melena or hematochezia, although his FOBT was positive GI has seen and evaluated patient in ED. S/p transfusion of 2 units pRBC on admission with 40mg IV lasix in between GI consulted Discussed Octreotide with GI - given no findings of hematemesis/chezia likely not an acute bleed Pt is now s/p EGD (03/25) no active bleeding found Continued protonix 40mg IV BID Continue iron supplementation - consider iron infusion as outpt Repeat H&H post transfusion 8.9 (03/24), (03/25 AM) 8.5, then on repeat (03/25) 8.2 Discussed with GI, they felt no need for colonoscopy, ok to d/c and follow up with [facility] hepatology. Paracentesis was also offered by GI team, patient initially declined. Given decrease in hemoglobin, discussed this with the patient, and decided to observe pt overnight and recheck H&H in the morning, patient agreeable. Next morning (03/26), hemoglobin stable 8.4 Hgb AM (03/27) 7.6 Hgb AM (03/28) 8.5 -Recommend to obtain CBC as outpatient to follow-up his anemia, and also contact his GI/field staff manager, as they may consider colonoscopy. Fever (unknown etiology) Concern for SBP -Patient spiked fever overnight 03/26, 38C -Chest x-ray - negative, UA- negative, blood cultures - NGTD -Paracentesis, diagnostic obtained -Ceftriaxone and IV albumin started -Patient denied any abdominal pain, hemodynamically stable -Ascitic fluid not consistent with SBP (WBC ~ 440/uL, only 9% neutrophils) -Other results of ascitic fluid discussed with GI, nonspecific -Fever again overnight 03/27 38.1 Celsius, despite being on ceftriaxone -Switched antibiotics to Vanco and Zosyn, awaiting cultures -No more reported fevers, and patient is clinically well, and hemodynamically stable -Blood cultures and ascitic fluid cultures no growth to date (48 hrs) -We will discharge patient on antibiotics, until blood cultures results are complete -He was advised to contact his primary care doctor if he develops fevers, he can discontinue antibiotics when blood culture results are negative (2) Cirrhosis: FOFANA Cirrhosis Follows [facility] and [facility] hepatology at home on lasix, aldactone (recently decreased both on 03/16 from Lasix 40mg to 20mg and Aldactone 100mg to 50mg) Assess daily, need for diuretics Takes lactulose prn, no s/sx of hepatic encephalopathy (3) Esophageal varices: continue propranolol GI consulted, no active variceal bleed found on EGD (4) GAVE (gastric antral vascular ectasia): continue propranolol GI on board (5) T2DM (type 2 diabetes mellitus): A1C 8.1 on 03/16 on glimepride at home hold and place on novolog SS per protocol if BSG consistently > 180 will add long acting insulin (6) CKD (chronic kidney disease) stage 3, GFR 30-59 ml/min: LUCRETIA on CKD baseline Cr 1.6-1.8 pt with pre renal insufficiency on CKD likely due to volume depletion 2/2 to A nemia 2 unit pRBCs received with lasix in between, on admission - AM 03/26, creatinine increased at 1.94, likely due to diuresis - Patient has ascites, will provide IV albumin - follow BMP, now down ~ 1.7 (7) DVT prophylaxis: SCD/TEDS Disposition: med tele Follow up: PCP Dr. Hill upon discharge along with appropriate GI follow up/ [facility] hepatology Admission and Anticipated Discharge Date Admission Date: March 24, 2020 Subjective Patient afebrile overnight. Initially admitted due to anemia, status post EGD, no active bleeding found on EGD. Received 2 units of pRBCs on admission. Today hemoglobin stable at 8.5. Patient reports having normal brown stools. Currently patient sitting up in bed, in no acute distress. He denies any fevers, chills, chest pain, shortness of breath, abdominal pain. Also denies any nausea or vomiting. Due to fevers previously noted, there was a concern for SBP. Analysis of ascitic fluid not consistent with SBP. Blood cultures and ascitic fluid cultures so far no growth to date. Review of Systems Review of Systems: All systems reviewed & are unremarkable except as noted in HPI & below Constitutional: no fever and no chills Respiratory: no cough and no dyspnea Cardiovascular: no chest pain and no palpitations Gastrointestinal: no abdominal pain, no nausea, no vomiting, no diarrhea/loose stools and no blood in stools Physical Exam Physical Exam: Constitutional: Elderly pleasant male, sitting up in bed, in no acute distress WD/WN, conversing easily, on room air Head: Normocephalic, Atraumatic Eyes: PERRL, EOMI, conjunctivae normal, anicteric sclerae ENMT: external ear and nose normal, oropharynx normal Neck: trachea midline, no thyromegaly normal visual inspection Respiratory: normal respiratory effort, lungs clear to auscultation, no wheeze, rales, rhonchi. Normal insp/exp effort, no accessory muscle use Cardiovascular: RRR, no LE edema b/l Vessels: no JVD Chest: normal inspection of chest Abdomen:+ somewhat distended abdomen 2/2 to ascites, protuberant, normal bowel sounds, soft, nontender to palpation Musculoskeletal: no cyanosis or clubbing, extremities motor strength 5/5, moves extremities spontaneously and without difficulty Skin: warm and dry Neurologic: PERRL, EOMI, accommodation nl, no face palsy, no dysarthria, moves all extremities Psychiatric: A+Ox3, euthymic affect Results & Data Results & Data ([facility]) Vital Signs (Past 12 Hours) Vital Signs Temp Pulse Resp BP Pulse Ox 03/28/20 04:04 37.1 C 58 L 20 124/69 96 03/27/20 23:00 36.9 C 56 L 20 119/64 97 Laboratory Results 03/28/20 03/28/20 03/28/20 Range/Units 07:28 06:10 06:10 WBC 5.97 (4.8-10.8) K/uL RBC 3.18 L (4.7-6.1) M/uL Hgb 8.5 L (14.0-18.0) g/dL Hct 28.0 L (42-52) % MCV 88.1 (80-100) fL MCH 26.7 (25-34) pg MCHC 30.4 L (32-36) g/dL RDW Std Deviation 59.5 H (36.4-46.3) fL RDW Coeff of Violetta 19.3 H (11.5-14.5) % Plt Count 97 L (130-400) K/uL MPV 10.8 H (7.4-10.4) fL Sodium 141 (136-145) mmol/L Potassium 4.3 (3.5-5.1) mmol/L Chloride 113 H (98-107) mmol/L Carbon Dioxide 19 L (21-32) mmol/L Anion Gap 9.0 (3-11) BUN 43 H (7-18) mg/dl Creatinine 1.76 H (0.6-1.4) mg/dl Est Cr Clr Drug Dosing 40.9 ml/min Est GFR ( Amer) 44.7 Est GFR (Non-Af Amer) 38.6 BUN/Creatinine Ratio 24.3 H (10-20) Glucose 170 H (70-99) mg/dl POC Glucose 191 H (70-99) mg/dl Calcium 8.3 L (8.5-10.1) mg/dl Total Bilirubin 1.5 H (0.2-1) mg/dl AST 27 (15-37) U/L ALT 23 (12-78) U/L Alkaline Phosphatase 131 H (45-117) U/L Total Protein 7.6 (6.4-8.2) gm/dl Albumin 3.1 L (3.4-5.0) gm/dl Globulin 4.5 H (2.5-4.0) gm/dl Albumin/Globulin Ratio 0.7 L (0.9-2) 03/27/20 03/27/20 03/27/20 Range/Units 20:10 16:34 12:02 WBC (4.8-10.8) K/uL RBC (4.7-6.1) M/uL Hgb (14.0-18.0) g/dL Hct (42-52) % MCV (80-100) fL MCH (25-34) pg MCHC (32-36) g/dL RDW Std Deviation (36.4-46.3) fL RDW Coeff of Violetta (11.5-14.5) % Plt Count (130-400) K/uL MPV (7.4-10.4) fL Sodium (136-145) mmol/L Potassium (3.5-5.1) mmol/L Chloride (98-107) mmol/L Carbon Dioxide (21-32) mmol/L Anion Gap (3-11) BUN (7-18) mg/dl Creatinine (0.6-1.4) mg/dl Est Cr Clr Drug Dosing ml/min Est GFR ( Amer) Est GFR (Non-Af Amer) BUN/Creatinine Ratio (10-20) Glucose (70-99) mg/dl POC Glucose 266 H 223 H 277 H (70-99) mg/dl Calcium (8.5-10.1) mg/dl Total Bilirubin (0.2-1) mg/dl AST (15-37) U/L ALT (12-78) U/L Alkaline Phosphatase (45-117) U/L Total Protein (6.4-8.2) gm/dl Albumin (3.4-5.0) gm/dl Globulin (2.5-4.0) gm/dl Albumin/Globulin Ratio (0.9-2) 03/27/20 03/27/20 Range/Units 11:47 07:42 WBC (4.8-10.8) K/uL RBC (4.7-6.1) M/uL Hgb 7.6 L (14.0-18.0) g/dL Hct 25.1 L (42-52) % MCV (80-100) fL MCH (25-34) pg MCHC (32-36) g/dL RDW Std Deviation (36.4-46.3) fL RDW Coeff of Violetta (11.5-14.5) % Plt Count (130-400) K/uL MPV (7.4-10.4) fL Sodium (136-145) mmol/L Potassium (3.5-5.1) mmol/L Chloride (98-107) mmol/L Carbon Dioxide (21-32) mmol/L Anion Gap (3-11) BUN (7-18) mg/dl Creatinine (0.6-1.4) mg/dl Est Cr Clr Drug Dosing ml/min Est GFR ( Amer) Est GFR (Non-Af Amer) BUN/Creatinine Ratio (10-20) Glucose (70-99) mg/dl POC Glucose 184 H (70-99) mg/dl Calcium (8.5-10.1) mg/dl Total Bilirubin (0.2-1) mg/dl AST (15-37) U/L ALT (12-78) U/L Alkaline Phosphatase (45-117) U/L Total Protein (6.4-8.2) gm/dl Albumin (3.4-5.0) gm/dl Globulin (2.5-4.0) gm/dl Albumin/Globulin Ratio (0.9-2) Medications Administered Current Inpatient Medications Acetaminophen (Tylenol) 325 mg PO Q6H PRN PRN Reason: Mild Pain Stop: 04/25/20 00:22 Last Admin: 03/26/20 22:54 Dose: 325 mg Documented by: Citalopram Hydrobromide (Celexa) 10 mg PO QAM [facility] Stop: 04/24/20 08:59 Last Admin: 03/27/20 07:37 Dose: 10 mg Documented by: Dextrose (Dextrose 50%) 25 - 50 ml IV UD PRN; Protocol PRN Reason: Hypoglycemia Protocol Stop: 04/23/20 14:27 Ferrous Sulfate (Feosol) 325 mg PO BID [facility] Stop: 04/23/20 20:59 Last Admin: 03/27/20 22:52 Dose: 325 mg Documented by: Furosemide (Lasix) 20 mg PO QAM [facility] Stop: 04/24/20 16:29 Last Admin: 03/25/20 17:30 Dose: 20 mg Documented by: Glucagon (Glucagen) 1 mg SQ UD PRN; Protocol PRN Reason: Hypoglycemia Protocol Stop: 04/23/20 14:27 Glucose (Dex4 Glucose) 4 - 8 tabs PO UD PRN; Protocol PRN Reason: Hypoglycemia Protocol Stop: 04/23/20 14:27 Glucose (Glucose 40%) 15 - 30 gm PO UD PRN; Protocol PRN Reason: Hypoglycemia Protocol Stop: 04/23/20 14:27 Ceftriaxone Sodium 1,000 mg/ (Dextrose) 50 mls @ 100 mls/hr IV Q24H JODI; Protocol Stop: 03/28/20 07:59 Last Infusion: 03/27/20 09:13 Dose: Infused Documented by: Albumin Human (Albumin 25%) 50 mls @ 50 mls/hr IV Q8H JODI Stop: 03/30/20 00:00 Last Infusion: 03/28/20 01:59 Dose: Infused Documented by: Piperacillin Sod/Tazobactam (Sod 3.375 gm/ Dextrose) 115 mls @ 28.75 mls/hr IV Q8H JODI; Protocol Stop: 03/29/20 15:59 Last Infusion: 03/28/20 05:49 Dose: Infused Documented by: Vancomycin HCl 1,500 mg/ (Sodium Chloride) 530 mls @ 200 mls/hr IV Q24H JODI; Protocol Stop: 03/29/20 09:59 Insulin Aspart (Novolog Flexpen) 0 units SC ACHS [facility] Stop: 04/24/20 16:39 Last Admin: 03/27/20 22:53 Dose: 3 units Documented by: Lactulose (Chronulac) 10 gm PO TID PRN PRN Reason: CONSTIPATION Stop: 04/23/20 14:50 Magnesium Oxide (Mag-Ox) 400 mg PO QAM JODI Stop: 04/25/20 08:59 Last Admin: 03/27/20 07:37 Dose: 400 mg Documented by: Miscellaneous (Carbohydrates For Hypoglycemia) 15 - 30 gm PO UD PRN PRN Reason: Hypoglycemia Protocol Stop: 04/23/20 14:27 Miscellaneous Information (Consult) 1 ea N/A UD PRN PRN Reason: Consult Stop: 04/26/20 09:40 Miscellaneous Information (Consult) 1 ea N/A UD PRN PRN Reason: Consult Stop: 04/26/20 09:44 Multivitamins/Minerals (Multivitamin W/ Minerals Tab) 1 tab PO HS JODI Stop: 04/23/20 20:59 Last Admin: 03/27/20 22:52 Dose: 1 tab Documented by: Ondansetron HCl (Zofran) 4 mg IV Q6H PRN PRN Reason: Nausea Stop: 04/23/20 14:27 Pantoprazole Sodium (Protonix) 40 mg PO BID [facility] Stop: 04/24/20 20:59 Last Admin: 03/27/20 22:54 Dose: 40 mg Documented by: Polyethylene Glycol (Miralax Powder Packet) 17 gm PO DAILY PRN PRN Reason: Constipation Stop: 04/23/20 14:27 Propranolol HCl (Inderal) 40 mg PO BID [facility] Stop: 04/23/20 20:59 Last Admin: 03/27/20 22:52 Dose: Not Given Documented by: Spironolactone (Aldactone) 50 mg PO QAM [facility] Stop: 04/23/20 14:27 Last Admin: 03/27/20 08:38 Dose: 50 mg Documented by: Vitamin D (Vitamin D3) 1,000 units PO HS [facility] Stop: 04/23/20 20:59 Last Admin: 03/27/20 22:55 Dose: 1,000 units Documented by:
[2020-03-28] MEDS: CITALOPRAM 20 MG TAB PO SCH (07:42)
[2020-03-28] MEDS: SPIRONOLACTONE 25 MG TAB PO SCH (07:42)
[2020-03-28] MEDS: FERROUS SULFATE 325 MG TAB PO SCH (07:43)
[2020-03-28] MEDS: MAGNESIUM OXIDE 400 MG TAB PO SCH (07:43)
[2020-03-28] MEDS: PANTOprazole 40 MG TAB PO SCH (07:43)
[2020-03-28] MEDS: PROPRANOLOL HCL 20 MG TAB PO SCH (07:43)
[2020-03-28] MEDS: INSULIN ASPART 100 UNITS/ML 3 ML PEN SC SCH ×2 (08:41→12:21)
[2020-03-28] MEDS ORDERED: VANCOMYCIN HCL 1,500 MG in SODIUM CHLORIDE 0.9% 500 ML IV SCH (10:00)
--- NOTE | 2020-03-28 13:02 | Discharge Summary ---
Date of Service March 28, 2020 Admission HPI Per Admitting Provider This is a 69-year-old male with significant PMH of [place] cirrhosis, esophageal and gastric varices, GAVE, T2DM, CKD stage III, GERD, psoriasis presents to the ED at the referral of PCP. Patient had lab work done in the outpatient setting yesterday which revealed hemoglobin of 6.8. He was urged to come to ED for further evaluation. Of significance he was last seen by PCP on 03/16 secondary to right toe pain. He is he was diagnosed with gout and placed on steroid taper. At that time he had a CBC which revealed hemoglobin of 7.1. He had repeat CBC yesterday for hemoglobin of 6.8. Of significance over the past 2 to 3 weeks he has noted increasing shortness of breath with exertion, fatigue, palpitations and chest heaviness with exertion. He denies any lightheadedness, dizziness, syncope, nausea, emesis, hematemesis, abdominal pain, melena, hematochezia. He states he did have a paracentesis approximately 6 weeks ago. Over the past week he has noted increase in his abdominal girth. He associates this with a decrease in his diuretics 1 week ago. His Lasix was reduced from 40 mg daily to 20 mg and aldactone was reduced to 50 mg daily. He states he has 3 BM daily and does not take laculose due to side effects. He will if he does not have 3 BM. His appetite has otherwise been fair. Denies and weight loss, edema, f/c/s, recent resp sx. Denies prior hx of transfusion. In ED he remained hemodynamically stable. His hemoglobin and hematocrit was 7.0 and 23.4, WBC 11.59, platelet 163, BUN 52, creatinine 1.76. His stool was positive for blood via FOBT. He received IV protonix in ED. Admission Exam Per Admitting Provider Constitutional: WD/WN, Pale, M, vitals as above, NAD, sitting up in bed, pleasant, conversing easily Head: Normocephalic, Atraumatic Eyes: PERRL, conjunctivae normal, anicteric sclerae ENMT: external ear and nose normal, oropharynx normal Neck: trachea midline, no thyromegaly normal visual inspection Respiratory: normal respiratory effort, lungs clear to auscultation, no wheeze, rales, rhonchi. Normal insp/exp effort, no accessory muscle use Cardiovascular: RRR, 2/6 WINTER noted cardiac apex, no edema Vessels: no JVD or carotid bruit Chest: normal inspection of chest Abdomen:+distended abdomen 2/2 to ascites, protuberant, normal bowel sounds, soft, nontender, Musculoskeletal: no cyanosis or clubbing, extremities motor strength 5/5 Skin: no rashes, warm and dry moderate turgor , cap refill > 2 Neurologic: PERRL, EOMI, accommodation nl, no face palsy, no dysarthria CN's II-XI intact bilaterally and moves all extremities Psychiatric: A+Ox3, euthymic affect Lymphatic: no cervical or axillary lymphadenopathy : deferred Principal Diagnosis Symptomatic anemia Fever (unknown origin) Discharge Exam Constitutional: Elderly pleasant male, sitting up in bed, in no acute distress WD/WN, conversing easily, on room air Head: Normocephalic, Atraumatic Eyes: PERRL, EOMI, conjunctivae normal, anicteric sclerae ENMT: external ear and nose normal, oropharynx normal Neck: trachea midline, no thyromegaly normal visual inspection Respiratory: normal respiratory effort, lungs clear to auscultation, no wheeze, rales, rhonchi. Normal insp/exp effort, no accessory muscle use Cardiovascular: RRR, no LE edema b/l Vessels: no JVD Chest: normal inspection of chest Abdomen:+ somewhat distended abdomen 2/2 to ascites, protuberant, normal bowel sounds, soft, nontender to palpation Musculoskeletal: no cyanosis or clubbing, extremities motor strength 5/5, moves extremities spontaneously and without difficulty Skin: warm and dry Neurologic: PERRL, EOMI, accommodation nl, no face palsy, no dysarthria, moves all extremities Psychiatric: A+Ox3, euthymic affect Discharge Data Allergies Allergy/AdvReac Type Severity Reaction Status Date / Time No Known Allergies Allergy Mild Verified 03/24/20 11:35 Consultations 03/24/20 11:16 ED Decision to Admit Stat 03/24/20 11:55 Consult Gastroenterology Routine 03/24/20 14:28 Consult Case Management - Discharge Planning Routine Procedures Performed Operation Date: 03/25/20 08:30 Actual Procedures p Esophagogastroduodenoscopy(Not Applicable) - Barbara March Ordered Studies 03/26/20 07:20 US paracentesis abd w/image Urgent IMPRESSION: Ultrasound-guided diagnostic paracentesis with removal of 50 cc of yellowish turbid, possibly chylous, ascites. The fluid was sent to the laboratory for analysis as ordered. 03/27/20 09:42 US venous doppler LE BI Routine IMPRESSION: No DVT within the right or left lower extremity. Hospital Course (1) Symptomatic anemia: This is a 69-year-old male with significant PMH of [place] cirrhosis, esophageal and gastric varices, GAVE, T2DM, CKD stage III, GERD, psoriasis presents to the ED at the referral of PCP. In ED he remained hemodynamically stable. His hemoglobin and hematocrit was 7.0 and 23.4, WBC 11.59, platelet 163, BUN 52, creatinine 1.76. His stool was positive for blood via FOBT (patient is also on iron supplement) He received IV protonix in ED. Pt had labwork in outpt setting 03/16 hgb 7.1 and iron studies which revealed significant iron deficiency anemia (ferritin 7.6, iron 29, total saturation 7%, TIBC 413) Patient is not exhibiting any hematemesis and does not report any melena or hematochezia, although his FOBT was positive GI has seen and evaluated patient in ED. S/p transfusion of 2 units pRBC on admission with 40mg IV lasix in between GI consulted Discussed Octreotide with GI - given no findings of hematemesis/chezia likely not an acute bleed Pt is now s/p EGD (03/25) no active bleeding found Continued protonix 40mg IV BID Continue iron supplementation - consider iron infusion as outpt Repeat H&H post transfusion 8.9 (03/24), (03/25 AM) 8.5, then on repeat (03/25) 8.2 Discussed with GI, they felt no need for colonoscopy, ok to d/c and follow up with [facility] hepatology. Paracentesis was also offered by GI team, patient initially declined. Given decrease in hemoglobin, discussed this with the patient, and decided to observe pt overnight and recheck H&H in the morning, patient agreeable. Next morning (03/26), hemoglobin stable 8.4 Hgb AM (03/27) 7.6 Hgb AM (03/28) 8.5 -Recommend to obtain CBC as outpatient to follow-up his anemia, and also contact his GI/model maker plaster, as they may consider colonoscopy. Fever (unknown etiology) Concern for SBP -Patient spiked fever overnight 03/26, 38C -Chest x-ray - negative, UA- negative, blood cultures - NGTD -Paracentesis, diagnostic obtained -Ceftriaxone and IV albumin started -Patient denied any abdominal pain, hemodynamically stable -Ascitic fluid not consistent with SBP (WBC ~ 440/uL, only 9% neutrophils) -Other results of ascitic fluid discussed with GI, nonspecific -Fever again overnight 03/27 38.1 Celsius, despite being on ceftriaxone -Switched antibiotics to Vanco and Zosyn, awaiting cultures -No more reported fevers, and patient is clinically well, and hemodynamically stable -Blood cultures and ascitic fluid cultures no growth to date (48 hrs) -We will discharge patient on antibiotics, until blood cultures results are com plete -He was advised to contact his primary care doctor if he develops fevers, he can discontinue antibiotics when blood culture results are negative (2) Cirrhosis: [place] Cirrhosis Follows [facility] GI and [facility] hepatology at home on lasix, aldactone (recently decreased both on 03/16 from Lasix 40mg to 20mg and Aldactone 100mg to 50mg) Assess daily, need for diuretics Takes lactulose prn, no s/sx of hepatic encephalopathy (3) Esophageal varices: continue propranolol GI consulted, no active variceal bleed found on EGD (4) GAVE (gastric antral vascular ectasia): continue propranolol GI on board (5) T2DM (type 2 diabetes mellitus): A1C 8.1 on 03/16 on glimepride at home hold and place on novolog SS per protocol if BSG consistently > 180 will add long acting insulin (6) CKD (chronic kidney disease) stage 3, GFR 30-59 ml/min: LUCRETIA on CKD baseline Cr 1.6-1.8 pt with pre renal insufficiency on CKD likely due to volume depletion 2/2 to Anemia 2 unit pRBCs received with lasix in between, on admission - AM 03/26, creatinine increased at 1.94, likely due to diuresis - Patient has ascites, will provide IV albumin - follow BMP, now down ~ 1.7 (7) DVT prophylaxis: SCD/TEDS Disposition: med tele Follow up: PCP Dr. Hill upon discharge along with appropriate GI follow up/ [facility] hepatology Total Time Total Time Spent Total Time Spent (In Minutes): 40 Total Time Includes: Examination of the Patient, Discharge Planning, Medication Reconciliation and Communication With Other Providers Discharge Plan Discharge Items Patient Disposition: Home - Self-Care Reason For Visit: ANEMIA Discharge Diagnosis: Anemia Fever Activity: As commented below Non-emergency contact: Primary Care Provider and [employer] Call non-emergency contact if: you have any medication questions and your symptoms worsen Follow-up/Referrals: Raulito Hill, [Primary Care Provider] - Diet: Carb Consistent or DM2 Addtl Attending Provider Instructions: Follow-up with your primary care doctor within a week. Contact your model maker plaster/ict project manager to inquire about follow-up appointment with them. You should have a blood work done, to check on your anemia, and kidney function, in a week. Take antibiotic, as prescribed, and follow-up on your blood cultures and cultures from paracentesis. If you notice at home, that you have a fever, contact your primary doctor. If cultures results are negative, you can discontinue antibiotics. Talk to your primary care doctor before discontinuing antibiotic. Pending Studies at Discharge: Yes Studies:: Blood culture Culture from paracentesis Stand-Alone Forms: My [facility] Painting With A Twist, Smoking Cessation Medications and DC Order Prescriptions: New amoxicillin-pot clavulanate [Augmentin] 500-125 mg tablet 1 tab PO BID Qty: 6 RF: 0 Continued furosemide [Lasix] 40 mg Tablet 20 mg PO QAM RF: 0 spironolactone [Aldactone] 100 mg Tablet 50 mg PO QAM RF: 0 citalopram [Celexa] 10 mg tablet 10 mg PO QAM RF: 0 omeprazole 40 mg capsule,delayed release(DR/EC) 40 mg PO QAM RF: 0 glimepiride [Amaryl] 2 mg tablet 2 mg PO BID RF: 0 ferrous sulfate 325 mg (65 mg iron) Tablet,Delayed Release (Dr/Ec) 325 mg PO BID RF: 0 cholecalciferol (vitamin D3) [Vitamin D3] 25 mcg (1,000 unit) Capsule 25 mcg PO HS RF: 0 Multivitamin 50 Plus Tablet 1 tab PO HS RF: 0 Humira Pen 40 mg/0.8 mL Pen Injector Kit 40 mg SUBCUT UD RF: 0 propranolol 40 mg tablet 40 mg PO BID RF: 0 lactulose 10 gram/15 mL solution 10 g PO TID PRN (Reason: Constipation) RF: 0 Discharge Orders: Discharge Order (Routine); Ordered 03/28/20 Ordered By: Lei Tapia Admission Data Admit Date/Time: 03/24/20 12:06 Attending Provider: Lei Tapia Admit Provider: Crystal Delaney Primary Care Provider: Raulito Hill Other Providers: Barbara March ; Crystal Delaney Other Interventions: Discharge Summary Assessment (RN) Last Done: 03/25/20 09:00
--- NOTE | 2020-04-01 12:33 | Coding Query ---
ANEMIA To promote full compliance with coding requirements relating to patient care, physician participation is requested in all cases of chief risk officer uncertainty. Please assist us with the question(s) below: Coding Question(s): The record reflects the following clinical findings: SYMPTOMATIC ANEMIA If these findings are indicative of anemia, please specify the known or suspected type by placing an "X" within the parenthesis (x). If other, please document type. Examples are: ( ) Acute blood loss anemia ( ) Acute Postoperative blood loss anemia ( ) Acute postoperative anemia due to dilutional fluids ( ) Chronic blood loss anemia ( ) Anemia of chronic disease ( ) Aplastic anemia ( ) Anemia due to renal disease ( ) Anemia in neoplastic disease ( ) Iron deficient anemia ( ) Anemia, unspecified or other ( ) Other: (please specify) ( ) Unable to determine Pt has anemia of chronic disease d/t cirrhosis. Initially concern for acute blood loss anemia, but EGD negative for any acute bleed. Thank you Kimmie Lainez [facility]
== END 2020-03-28 14:34 | disposition home or self-care (01) | DRG 433 ==
LOC: ED 09:26 → SUATTDRO 12:06 → 2N 12:06

== ENCOUNTER 2021-12-02 20:02 | Observation (INO) ==
[2021-12-02] MEDS ORDERED: SODIUM CHLORIDE 0.9% 500 ML IV ONE (20:55)
[2021-12-02 20:59] LABS: Hematocrit (blood only) 25.1 % (42-52); Hemoglobin 8.3 g/dL (14.0-18.0); Mean Corpuscular Hemoglobin 32.7 pg (25-34); Mean Corpuscular Hgb Conc 33.1 g/dL (32-36); Mean Corpuscular Volume 98.8 fL (80-100); RDW Coefficient of Variation 17.5 % (11.5-14.5); RDW Standard Deviation 62.6 fL (36.4-46.3); Red Blood Count 2.54 M/uL (4.7-6.1); White Blood Count 3.21 K/uL (4.8-10.8)
[2021-12-02 21:09] LABS: INR 1.2 (0.9-1.1); Prothrombin Time 11.6 Seconds (9.0-12.0)
[2021-12-02 21:16] LABS: Basophils # (auto) 0.01 K/uL (0-0.2); Basophils % (auto) 0.3 %; Eosinophils # (auto) 0.17 K/uL (0-0.5); Eosinophils % (auto) 5.3 %; Immature Granulocytes # (auto) 0.01 K/uL (0.00-0.02); Immature Granulocytes % (auto) 0.3 %; Lymphocytes # (auto) 0.91 K/uL (1.2-3.4); Lymphocytes % (auto) 28.3 %; Mean Platelet Volume 9.2 fL (7.4-10.4); Monocytes # (auto) 0.18 K/uL (0.11-0.59); Monocytes % (auto) 5.6 %; Neutrophils # (auto) 1.93 K/uL (1.4-6.5); Neutrophils % (auto) 60.2 %; Platelet Count 86 K/uL (130-400); Platelet Estimate Decreased (Normal)
[2021-12-02 21:17] LABS: Albumin Level 2.5 gm/dl (3.4-5.0); BUN Creatinine Ratio 15.3 (10-20); Bilirubin Direct 0.7 mg/dl (0-0.2); Creatinine Clr Calc Pharmacy 48.2 ml/min; Est GFR (African American) 55.8 ml/min; Est GFR (Non-African American) 48.1 ml/min; Potassium 3.8 mmol/L (3.5-5.1)
[2021-12-02 21:20] LABS: Albumin Globulin Ratio 0.6 (0.9-2); Globulin 3.9 gm/dl (2.5-4.0); Total Protein 6.4 gm/dl (6.4-8.2)
[2021-12-02 21:44] LABS: Appearance Urine Clear (Clear); Bacteria Urine Automated Negative (Negative); Blood Urine 2+ (Negative); Color Urine Dark Yellow; Glucose Urine UA 2+ (Negative); Ketones Urine Trace (Negative); Leukocyte Esterase Urine Negative (Negative); Nitrite Urine Negative (Negative); Protein Urine Negative (Negative); Specific Gravity Urine 1.033 (1.000-1.030); Urobilinogen Urine Negative (Negative)
[2021-12-02 21:47] LABS: Bilirubin Urine 1+ (Negative)
--- NOTE | 2021-12-02 21:51 | Emergency Department Note ---
Impression & Plan GI (gastrointestinal bleed), Esophageal varices, GAVE (gastric antral vascular ectasia), Cirrhosis ED Provider Note NAME: MERRITT TAPIA AGE: 71 SEX: M ARRIVES VIA: Walk-In INFORMANT: Patient ED PROVIDER(S): Chris Rich MD CHIEF COMPLAINT: blood per rectum PLAN: Disposition: Admit MEDICAL DECISION MAKING: The patient is a pleasant 71-year-old gentleman with a past medical history of Dalton cirrhosis, prostate cancer status post radiation treatment, history of gastric antral vascular ectasia who presents to the emergency department coming by his son with acute episodes of red blood per rectum where he reports it filled the toilet. The patient reports that he has had several more minor episodes in the past month that resolved on their own. He reports he did have a colonoscopy a couple of days ago that showed no polyps or bleeding at that time. He reports he does have a history of esophageal varices but these have since been stable after having TIPS procedure previously. He reports his history of cirrhosis has also remained stable. Otherwise he denies fevers, chills, cough, congestion, lightheadedness, chest pain, shortness of breath, abdominal pain. The patient is fatigued appearing but no acute distress, afebrile with stable vital signs. He has mild pallor. He appears clinically dry. Abdomen is benign. Rectal exam demonstrates small amount of red blood that does test positive. WBC 3.2, H/H 8.3/25.1 and platelets 86K all similar to prior range of values in the setting of the patient's cirrhosis. INR is 1.2. Chemistry without metabolic acidosis. Creatinine 1.45 improved and similar to prior range of values. LFTs and electrolytes without significant abnormality. Lipase is not elevated. UA without convincing evidence of infection. COVID-19, RNA, NAAT test was negative. CT of the abd/pelvis with ?of proctitis but otherwise did not demonstrate acute process. Given patient's history of esophageal varices and GAVE his was treated with protonix and octreotide. He agrees with plan for admission for further management. Case was discussed with Dr. Andersen, [facility] hospitalist, who will evaluate the patient for admission. Triage Nursing notes reviewed and agree them. Prior medical records reviewed Vital Signs: reviewed and remarkable for no significant abnormalities Differential diagnosis: Diverticulosis, AVM, coagulopathy, colitis, inflammatory bowel disease, malignancy, Jodee-Rm tear, esophagitis, peptic ulcer disease, variceal bleed, gastritis, epistaxis, fissure, hemorrhoids, as well as other pathologies. ER treatment provided: See below. Diagnostics interpreted by me: Cardiac Monitoring: An order for continuous cardiac monitoring was placed and demonstrated nsr, 71 bpm, no ectopy. Laboratory studies: See below Imaging studies: See below Consultation(s): Case was discussed with Dr. Andersen, [facility] hospitalist, who will evaluate the patient for admission. HPI: The patient is a pleasant 71-year-old gentleman with a past medical history of Dalton cirrhosis, prostate cancer status post radiation treatment, history of gastric antral vascular ectasia who presents to the emergency department coming by his son with acute episodes of red blood per rectum where he reports it filled the toilet. The patient reports that he has had several more minor episodes in the past month that resolved on their own. He reports he did have a colonoscopy a couple of days ago that showed no polyps or bleeding at that time. He reports he does have a history of esophageal varices but these have since been stable after having TIPS procedure previously. He reports his history of cirrhosis has also remained stable. Otherwise he denies fevers, chills, cough, congestion, lightheadedness, chest pain, shortness of breath, abdominal pain. ROS: See above HPI for pertinent positives & negatives. A total of 10 systems reviewed and were otherwise negative. PAST MEDICAL HISTORY:See Below PAST SURGICAL HISTORY:See Below FAMILY HISTORY:See Below SOCIAL HISTORY:See Below HOME MEDICATIONS:See Below ALLERGIES:See Below VITALS:See Below PHYSICAL EXAMINATION: GENERAL: Awake, alert, fatigued-appearing, in no distress HENT: Normocephalic, atraumatic. Oropharynx unremarkable. EYES: Normal conjunctiva. Sclera non-icteric. NECK: Supple. No nuchal rigidity. FROM. No JVD. RESPIRATORY: Clear to auscultation. CARDIAC: Regular rate, normal rhythm. Extremities warm and well perfused. Pulses equal. ABDOMEN: Soft, non-distended. No tenderness to palpation. No rebound or guarding. No masses. RECTAL: Small amount of red blood that does test heme positive. MUSCULOSKELETAL: Chest examination reveals no tenderness. The back is symmetrical on inspection without obvious abnormality. There is no CVA tenderness to palpation. No joint edema. LOWER EXTREMITIES: Calves are equal size bilaterally and non-tender. No edema. No discoloration. NEURO: Normal sensorium. No sensory or motor deficits noted. SKIN: Mild pallor. No rash or jaundice noted. ED COURSE: Critical Care: I have personally spent greater than 35 minutes of critical care time in the direct management of this patient. This includes bedside care, interpretation of diagnostic studies, and testing, discussion with consultants, patient, and family members, and other required patient management activities. This 35 min utes is in excess of all separately billable procedures. 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 CKD (chronic kidney disease) stage 3, GFR 30-59 ml/min DVT prophylaxis Encounter for pre-operative examination Encounter for pre-operative examination Esophageal varices Esophageal varices with bleeding GAVE (gastric antral vascular ectasia) GERD (gastroesophageal reflux disease) Gout NO ISSUES CURRENTLY History of panic attacks History of recent blood transfusion 07/13/2020 Hypertension Low hemoglobin reason for scheduled egd/colonoscopy Psoriasis on Humira [id number] Psoriasis Shortness of breath Symptomatic anemia T2DM (type 2 diabetes mellitus) Upper GI bleed Surgical History History of abdominal paracentesis Every 2 weeks History of colonoscopy with polypectomy History of esophagogastroduodenoscopy (EGD) last 10/25 revealed grade 2 esophageal varices, grade 1 gastric varices STABLE History of prostate biopsy History of tonsillectomy and adenoidectomy S/P TIPS (transjugular intrahepatic portosystemic shunt) Family History Father , "3/4 liver gone due to drinking" Colorectal cancer, Onset Age: 63 Mother Lung cancer Daughter Cancer cervical and thyroid cancers Ovarian cancer Other No family history of adverse response to anesthesia 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 Smoking Status: Never smoker Second Hand Exposure: Yes; Hx Alcohol Use: No Hx Substance Use: No Preferred Language: Upper Sorbian Communication Ability: Effective Visual Impairment: No Limitations Hearing Ability: Normal Cartridge Feeder Required: No Beliefs That Will Affect Care: None marital status: Current Living Situation: Alone 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 How many Children do You have: 6 How many Children do You have Comment: one , eldest daughter in her sleep from seizure disorder Feels Safe at Home: Yes Childhood Exposure to Second-Hand Smoke: Yes Diet Comment: "I watch my sugar, average fasting is 140 mg/dl" caffeine: Yes (cola, sugar free, decaf) during the past year weight has: remained stable Dental Care, Regularly: No Physical Activity Frequency: Does not Exercise Seatbelt Use: always Sunscreen Use: Yes Assistive Devices: Glasses Allergies Allergies Allergy/AdvReac Type Severity Reaction Status Date / Time No Known Allergies Allergy Mild Verified 12/02/21 22:09 Home Meds Home Medications Medication Instructions Recorded Confirmed citalopram 10 mg tablet (Celexa) 10 mg PO QAM 03/24/20 12/02/21 lactulose 10 gram/15 mL oral 10 - 15 g PO DAILY 03/24/20 12/02/21 solution omeprazole 40 mg capsule,delayed 40 mg PO QAM 03/24/20 12/02/21 release allopurinol 100 mg tablet 100 mg PO BID 05/16/20 12/02/21 rifaximin 550 mg tablet (Xifaxan) 550 mg PO BID 12/08/20 12/02/21 finasteride 5 mg tablet 5 mg PO DAILY 11/03/21 12/02/21 leuprolide 7.5 mg (1 month) 7.5 mg SUBCUT MONTHLY 12/02/21 12/02/21 subcutaneous syringe (Eligard) Results & Data (ED) Vital Signs Vital Signs - 24 hr 12/02/21 20:09 12/02/21 20:32 12/02/21 21:32 Temperature 36.2 C L Temperature Source Temporal Artery Scan Pulse Rate 71 61 Pulse Rate [Apical] 59 L Respiratory Rate 18 23 18 Respiratory Effort / Characteristics Non-Labored Spontaneous Respiratory Depth Normal Blood Pressure 107/52 L Blood Pressure [Left Arm] 161/70 H Blood Pressure Mean 70 Blood Pressure Mean [Left Arm] 100 Blood Pressure Position Sitting Pulse Oximetry 99 98 98 Oxygen Delivery Method Room Air Room Air Sepsis Recent Fever Within 48 Hours No Sepsis New/Unexplained Change in Mental Status N/A Sepsis Action Taken by Nursing No Action Required Laboratory Data Result diagrams: 12/03/21 00:05 12/02/21 20:50 Lab Results 12/02/21 12/02/21 12/02/21 Range/Units 20:50 20:50 20:50 WBC 3.21 L (4.8-10.8) K/uL RBC 2.54 L (4.7-6.1) M/uL Hgb 8.3 L (14.0-18.0) g/dL Hct 25.1 L (42-52) % MCV 98.8 (80-100) fL MCH 32.7 (25-34) pg MCHC 33.1 (32-36) g/dL RDW Std Deviation 62.6 H (36.4-46.3) fL RDW Coeff of Violetta 17.5 H (11.5-14.5) % Plt Count 86 L (130-400) K/uL MPV 9.2 (7.4-10.4) fL Immature Gran % (Auto) 0.3 % Neut % (Auto) 60.2 % Lymph % (Auto) 28.3 % Major % (Auto) 5.6 % Eos % (Auto) 5.3 % Baso % (Auto) 0.3 % Neut # (Auto) 1.93 (1.4-6.5) K/uL Lymph # (Auto) 0.91 L (1.2-3.4) K/uL Major # (Auto) 0.18 (0.11-0.59) K/uL Eos # (Auto) 0.17 (0-0.5) K/uL Baso # (Auto) 0.01 (0-0.2) K/uL Immature Gran # (Auto) 0.01 (0.00-0.02) K/uL Platelet Estimate Decreased L (Normal) PT 11.6 (9.0-12.0) Seconds INR 1.2 H (0.9-1.1) Sodium (136-145) mmol/L Potassium (3.5-5.1) mmol/L Chloride (98-107) mmol/L Carbon Dioxide (21-32) mmol/L Anion Gap (3-11) BUN (7-18) mg/dl Creatinine (0.6-1.4) mg/dl Est Cr Clr Drug Dosing ml/min Est GFR ( Amer) ml/min Est GFR (Non-Af Amer) ml/min BUN/Creatinine Ratio (10-20) Glucose (70-99) mg/dl Calcium (8.5-10.1) mg/dl Magnesium (1.8-2.4) mg/dl Total Bilirubin (0.2-1) mg/dl Direct Bilirubin (0-0.2) mg/dl AST (15-37) U/L ALT (12-78) Alkaline Phosphatase (45-117) U/L Total Protein (6.4-8.2) gm/dl Albumin (3.4-5.0) gm/dl Globulin (2.5-4.0) gm/dl Albumin/Globulin Ratio (0.9-2) Lipase (73-393) U/L Urine Color Urine Appearance (Clear) Urine pH (4.5-7.5) Ur Specific Pat[place] (1.000-1.030) Urine Protein (Negative) Urine Glucose (UA) (Negative) Urine Ketones (Negative) Urine Blood (Negative) Urine Nitrite (Negative) Urine Bilirubin (Negative) Urine Urobilinogen (Negative) Ur Leukocyte Esterase (Negative) Urine WBC (Auto) (0-5) /hpf Urine RBC (Auto) (0-4) /hpf U Hyaline Cast (Auto) (0-5) /lpf U Epithel Cells (Auto) (0-5) /lpf Urine Bacteria (Auto) (Negative) Blood Type O Positive Antibody Screen NEGATIVE 12/02/21 12/02/21 Range/Units 20:50 21:27 WBC (4.8-10.8) K/uL RBC (4.7-6.1) M/uL Hgb (14.0-18.0) g/dL Hct (42-52) % MCV (80-100) fL MCH (25-34) pg MCHC (32-36) g/dL RDW Std Deviation (36.4-46.3) fL RDW Coeff of Violetta (11.5-14.5) % Plt Count (130-400) K/uL MPV (7.4-10.4) fL Immature Gran % (Auto) % Neut % (Auto) % Lymph % (Auto) % Major % (Auto) % Eos % (Auto) % Baso % (Auto) % Neut # (Auto) (1.4-6.5) K/uL Lymph # (Auto) (1.2-3.4) K/uL Major # (Auto) (0.11-0.59) K/uL Eos # (Auto) (0-0.5) K/uL Baso # (Auto) (0-0.2) K/uL Immature Gran # (Auto) (0.00-0.02) K/uL Platelet Estimate (Normal) PT (9.0-12.0) Seconds INR (0.9-1.1) Sodium 143 (136-145) mmol/L Potassium 3.8 (3.5-5.1) mmol/L Chloride 116 H (98-107) mmol/L Carbon Dioxide 22 (21-32) mmol/L Anion Gap 5.0 (3-11) BUN 22 H (7-18) mg/dl Creatinine 1.45 H (0.6-1.4) mg/dl Est Cr Clr Drug Dosing 48.2 ml/min Est GFR ( Amer) 55.8 ml/min Est GFR (Non-Af Amer) 48.1 ml/min BUN/Creatinine Ratio 15.3 (10-20) Glucose 291 H (70-99) mg/dl Calcium 8.0 L (8.5-10.1) mg/dl Magnesium 1.7 L (1.8-2.4) mg/dl Total Bilirubin 2.7 H (0.2-1) mg/dl Direct Bilirubin 0.7 H (0-0.2) mg/dl AST 47 H (15-37) U/L ALT 34 (12-78) Alkaline Phosphatase 268 H D (45-117) U/L Total Protein 6.4 (6.4-8.2) gm/dl Albumin 2.5 L (3.4-5.0) gm/dl Globulin 3.9 (2.5-4.0) gm/dl Albumin/Globulin Ratio 0.6 L (0.9-2) Lipase 157 (73-393) U/L Urine Color Dark Yellow Urine Appearance Clear (Clear) Urine pH 5.0 (4.5-7.5) Ur Specific [place] 1.033 H (1.000-1.030) Urine Protein Negative (Negative) Urine Glucose (UA) 2+ H (Negative) Urine Ketones Trace H (Negative) Urine Blood 2+ H (Negative) Urine Nitrite Negative (Negative) Urine Bilirubin 1+ H (Negative) Urine Urobilinogen Negative (Negative) Ur Leukocyte Esterase Negative (Negative) Urine WBC (Auto) 1-5 (0-5) /hpf Urine RBC (Auto) 10-30 H (0-4) /hpf U Hyaline Cast (Auto) 1-5 (0-5) /lpf U Epithel Cells (Auto) 5-10 H (0-5) /lpf Urine Bacteria (Auto) Negative (Negative) Blood Type Antibody Screen Administered Medications Allopurinol (Allopurinol 100 Mg Tab) 100 mg PO BID JODI Stop: 01/01/22 23:57 Last Admin: 12/03/21 00:46 Dose: 100 mg Documented by: [id number] Insulin Aspart (Insulin Aspart Per Unit) 0 units SC ACHS JODI Stop: 01/02/22 00:01 Last Admin: 12/03/21 00:59 Dose: 5 units Documented by: [id number] Cosigned by: [id number] Lactulose (Lactulose Syrup 20 Gm/30 Ml Udc) 10 gm PO BID JODI Stop: 01/02/22 00:14 Last Admin: 12/03/21 00:48 Dose: 10 gm Documented by: [id number] Rifaximin (Rifaximin 550 Mg Tablet) 550 mg PO BID JODI Stop: 01/01/22 23:57 Last Admin: 12/03/21 00:47 Dose: 550 mg Documented by: [id number] Discontinued Medications Sodium Chloride (Nss) 500 mls @ 999 mls/hr IV .Q31M ONE Stop: 12/02/21 21:25 Last Infusion: 12/02/21 22:09 Dose: 0 mls/hr Documented by: [id number] Admin: 12/02/21 21:30 Dose: 999 mls/hr Documented by: [id number] Pantoprazole Sodium 40 mg/ (Syringe) 10 mls @ 5 mls/min IV NOW ONE Stop: 12/02/21 22:17 Last Admin: 12/02/21 22:59 Dose: 5 mls/min Documented by: [id number] Octreotide Acetate 500 mcg/ (Sodium Chloride) 105 mls @ 10.5 mls/hr IV .Q10H JODI Stop: 01/01/22 22:29 Last Infusion: 12/03/21 01:20 Dose: 0 mcg/hr, 0 mls/hr Documented by: [id number] Admin: 12/02/21 22:59 Dose: 50 mcg/hr, 10.5 mls/hr Documented by: [id number] Octreotide Acetate 50 mcg/ (Syringe) 10 mls @ 3 mls/min IV ONE STA Stop: 12/02/21 22:19 Last Admin: 12/02/21 22:59 Dose: 3 mls/min Documented by: [id number] Insulin Glargine (Insulin Glargine Solostar 100 Units/Ml 3 Ml Pen) 5 units SC NOW STA Stop: 12/03/21 00:02 Last Admin: 12/03/21 00:58 Dose: 5 units Documented by: [id number] Cosigned by: [id number] Non-Formulary Medication (Lactulose) 10 gm PO BID JODI Stop: 01/01/22 23:57 Last Admin: 12/03/21 01:05 Dose: Not Given Documented by: [id number] Imaging Data Radiologist's Impression: Abdomen/Pelvis CT 12/02/21 20:[address] WITHOUT CONTRAST CT DOSE: 608.16 mGy.cm HISTORY: Chronic liver disease. Acute rectal bleeding red blood per rectum, h/o cirrhosis TECHNIQUE: Multiaxial CT images of the abdomen and pelvis were performed without contrast. A dose lowering technique was utilized adhering to the principles of ALARA. COMPARISON STUDY: CT radiation therapy study 02/16/2021 FINDINGS: Trace pericardial effusion. The artery calcifications. Nonspecific prominent epicardial lymph nodes measure up to 8 mm. The lung bases appear generally clear. No pneumatosis or pneumoperitoneum. The spleen is enlarged measuring up to 16.8 cm. Limited evaluation of the solid abdominal organs without the use of IV contrast. Unchanged 1.9 cm cystic lesion of the pancreatic head, possibly metals sales representative of a sidebranch IPMN. No pancreatic ductal dilation. Contracted gallbladder. Unremarkable adrenal glands. Cirrhotic liver with TIPS shunt. Unremarkable kidneys. No hydronephrosis. Urinary bladder wall thickening with partial distention. Prostamegaly. Small fat filled bilateral inguinal hernias. Atherosclerosis of the aorta without aneurysm. There is no adenopathy. No bowel obstruction. There is mild wall thickening of the distal rectum. Colonic diverticulosis without acute diverticulitis. The visualized appendix appears normal. Small volume of abdominal pelvic ascites. Recanalization of the umbilical vein. Note is made of upper abdominal varices. Degenerative changes of the spine, pelvis and hips. No acute fracture. IMPRESSION: 1. Mild rectal wall thickening may be secondary to partial distention versus a nonspecific proctitis. 2. Colonic diverticulosis without acute diverticulitis. 3. Cirrhotic liver disease with stigmata of portal venous hypertension including splenomegaly with abdominal varices and small volume of abdominopelvic ascites. 4. Prostamegaly with evidence of chronic bladder outlet obstruction. 5. Additional findings as above. ACT 112: Negative or not required by law. The above report was generated using voice recognition software. It may contain grammatical, syntax or spelling errors. Electronically signed by: Yovany Gonzalez M.D. 12/02/2021 10:09 PM Discharge Plan Visit Data Chief Complaint: Rectal Bleed Stated Complaint: RECTAL BLEEDING 3RD TIME THIS MONTH ED Provider: Chris Rich Discharge Problem: GI (gastrointestinal bleed), Esophageal varices, GAVE (gastric antral vascular ectasia), Cirrhosis Patient Disposition: Admitted As Inpatient Discharge Problem: GI (gastrointestinal bleed) Qualifiers: GI bleed type/associated pathology: unspecified gastrointestinal hemorrhage type Qualified Code(s): K92.2 - Gastrointestinal hemorrhage, unspecified Esophageal varices Qualifiers: Esophageal varices type: unspecified type Cirrhosis Qualifiers: Hepatic cirrhosis type: unspecified hepatic cirrhosis Ascites presence: without ascites Qualified Code(s): K74.60 - Unspecified cirrhosis of liver
--- NOTE | 2021-12-02 22:10 | CT Scan Report ---
ABDOMEN AND PELVIS CT WITHOUT CONTRAST CT DOSE: 608.16 mGy.cm HISTORY: Chronic liver disease. Acute rectal bleeding red blood per rectum, h/o cirrhosis TECHNIQUE: Multiaxial CT images of the abdomen and pelvis were performed without contrast. A dose lo wering technique was utilized adhering to the principles of ALARA. COMPARISON STUDY: CT radiation therapy study 02/16/2021 FINDINGS: Trace pericardial effusion. The artery calcifications. Nonspecific prominent epicardial lym ph nodes measure up to 8 mm. The lung bases appear generally clear. No pneumatosis or pneumoperitoneu m. The spleen is enlarged measuring up to 16.8 cm. Limited evaluation of the solid abdominal organs w ithout the use of IV contrast. Unchanged 1.9 cm cystic lesion of the pancreatic head, possibly repres entative of a sidebranch IPMN. No pancreatic ductal dilation. Contracted gallbladder. Unremarkable ad renal glands. Cirrhotic liver with TIPS shunt. Unremarkable kidneys. No hydronephrosis. Urinary bladder wall thickening with partial distention. Pro stamegaly. Small fat filled bilateral inguinal hernias. Atherosclerosis of the aorta without aneurysm . There is no adenopathy. No bowel obstruction. There is mild wall thickening of the distal rectum. C olonic diverticulosis without acute diverticulitis. The visualized appendix appears normal. Small vol ume of abdominal pelvic ascites. Recanalization of the umbilical vein. Note is made of upper abdomina l varices. Degenerative changes of the spine, pelvis and hips. No acute fracture. IMPRESSION: 1. Mild rectal wall thickening may be secondary to partial distention versus a nonspecific proctitis. 2. Colonic diverticulosis without acute diverticulitis. 3. Cirrhotic liver disease with stigmata of portal venous hypertension including splenomegaly with ab dominal varices and small volume of abdominopelvic ascites. 4. Prostamegaly with evidence of chronic bladder outlet obstruction. 5. Additional findings as above. ACT 112: Negative or not required by law. The above report was generated using voice recognition software. It may contain grammatical, syntax o r spelling errors. Electronically signed by: Yovany Gonzalez M.D. 12/02/2021 10:09 PM
[2021-12-02 22:11] LABS: Bilirubin,Total 2.7 mg/dl (0.2-1)
[2021-12-02] MEDS ORDERED: PANTOprazole 40 MG in SYRINGE 0 ML IV ONE (22:16)
[2021-12-02] MEDS ORDERED: OCTREOTIDE ACETATE 50 MCG in SYRINGE 9.5 ML IV STA (22:16)
[2021-12-02] MEDS ORDERED: OCTREOTIDE ACETATE 500 MCG in 0.9 % SODIUM CHLORIDE 100 ML IV SCH (22:30)
[2021-12-02 22:48] LABS: Magnesium 1.7 mg/dl (1.8-2.4)
--- NOTE | 2021-12-02 23:55 | History & Physical Report ---
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, no overt decompensation, liver transplant contemplated hepatocellular carcinoma status post IR embolization, stable on last outpatient ultrasound from September 2021 DM2 diet-controlled, patient currently hyperglycemic, well-controlled as of recent hemoglobin A1c of 6.08 November 2021 CRI, creatinine at baseline prostate cancer status post radiation on leuprolide Rx OBS GMF Clear liquids for now Transfuse PRBC if hemoglobin less than 7 and or for symptomatic anemia GI consult if with further hemoglobin drop or persistent L GIB Basal insulin, ISS BG goal 1 10-1 40, carb count coverage DVT prophylaxis. SCDs Re: GI bleed Full code Text document was generated using [employer] voice recognition software. It may contain grammatical or spelling errors. Kindly contact undersigned for clarification of any documentation item in question. History of Present Illness Chief Complaint: Rectal bleed Primary Care Provider: Francisco Cisse MD History obtained from patient and records. 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 2 weeks ago, patient noted hematochezia symptoms without hematemesis, abdominal pain, fever, chills. Patient seen at the weekend clinic. Patient referred for outpatient colonoscopy. Bleeding spontaneously resolved as per patient. Patient underwent outpatient colonoscopy 2 days ago. Sigmoid diverticulosis with mild nonbleeding radiation proctitis noted. Yesterday patient noted hard stools on defecation without actual pain. Today, patient had recurrent hematochezia, around 3 bowel movements without hematemesis, pain, fever, chills. Not diarrhea as per patient. Patient consulted ER for evaluation. IV PPI and octreotide administered at the ER. Medical History as above 2019 EGD showed grade 1 through 2 esophageal varices, portal hypertensive gastropathy. 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 Allergies Allergy/AdvReac Type Severity Reaction Status Date / Time No Known Allergies Allergy Mild Verified 12/02/21 22:09 Home Medications Medication Instructions Recorded Confirmed Type citalopram 10 mg tablet (Celexa) 10 mg PO QAM 03/24/20 12/02/21 History lactulose 10 gram/15 mL oral 10 - 15 g PO DAILY 03/24/20 12/02/21 History solution omeprazole 40 mg capsule,delayed 40 mg PO QAM 03/24/20 12/02/21 History release allopurinol 100 mg tablet 100 mg PO BID 05/16/20 12/02/21 History rifaximin 550 mg tablet (Xifaxan) 550 mg PO BID 12/08/20 12/02/21 History finasteride 5 mg tablet 5 mg PO DAILY 11/03/21 12/02/21 History leuprolide 7.5 mg (1 month) 7.5 mg SUBCUT MONTHLY 12/02/21 12/02/21 History subcutaneous syringe (Eligard) Past Med/Surg History Medical History (Updated 12/03/21 @ 04:06 by Yordan Andersen MD) Anemia Anemia 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 CKD (chronic kidney disease) stage 3, GFR 30-59 ml/min DVT prophylaxis Encounter for pre-operative examination Encounter for pre-operative examination Esophageal varices Esophageal varices with bleeding GAVE (gastric antral vascular ectasia) GERD (gastroesophageal reflux disease) Gout NO ISSUES CURRENTLY History of panic attacks History of recent blood transfusion 07/13/2020 Hypertension Low hemoglobin reason for scheduled egd/colonoscopy Psoriasis on Humira [id number] Psoriasis Shortness of breath Symptomatic anemia T2DM (type 2 diabetes mellitus) Upper GI bleed Surgical History History of abdominal paracentesis Every 2 weeks History of colonoscopy with polypectomy History of esophagogastroduodenoscopy (EGD) last 10/25 revealed grade 2 esophageal varices, grade 1 gastric varices STABLE History of prostate biopsy History of tonsillectomy and adenoidectomy S/P TIPS (transjugular intrahepatic portosystemic shunt) Family History Father , "3/4 liver gone due to drinking" Colorectal cancer, Onset Age: 63 Mother Lung cancer Daughter Cancer cervical and thyroid cancers Ovarian cancer Other No family history of adverse response to anesthesia 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 Smoking Status: Never smoker Second Hand Exposure: Yes; Hx Alcohol Use: No Hx Substance Use: No Preferred Language: Salvadorean Communication Ability: Effective Visual Impairment: No Limitations Hearing Ability: Normal Coating Inspector Required: No Beliefs That Will Affect Care: None marital status: Current Living Situation: Spouse 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 How many Children do You have: 6 How many Children do You have Comment: one , eldest daughter in her sleep from seizure disorder Other Information That Helps Us Care for You: No Feels Safe at Home: Yes Childhood Exposure to Second-Hand Smoke: Yes Diet Comment: "I watch my sugar, average fasting is 140 mg/dl" caffeine: Yes (cola, sugar free, decaf) during the past year weight has: remained stable Dental Care, Regularly: No Physical Activity Frequency: Does not Exercise Seatbelt Use: always Sunscreen Use: Yes Assistive Devices: Glasses Review of Systems Review of Systems: As per HPI, all 10 systems reviewed, all other ROS negative Physical Exam Physical Exam: GENERAL: Comfortable, pleasant, no respiratory distress SKIN: Pallor,, warm HEENT: Alopecia, pale palpebral conjunctivae, no ptosis, dry buccal mucosa NECK : Supple, no tenderness CHEST : CTA, no tenderness HEART : RRR, no obvious murmurs ABDOMEN: Some distention, nontender EXTREMITIES : No LE swelling/tenderness, no other conspicuous deformities noted NEUROLOGIC : Coherent, no facial asymmetry, no other gross focality Results & Data Results & Data ([facility]) Vital Signs (Past 12 Hours) Vital Signs Temp Pulse Pulse Resp BP BP Pulse Ox 12/02/21 21:32 59 L 18 161/70 H 98 12/02/21 20:32 61 23 98 12/02/21 20:09 36.2 C L 71 18 107/52 L 99 Laboratory Results Laboratory Results WBC 3.21 K/uL (4.8-10.8) L 12/02/21 20:50 RBC 2.54 M/uL (4.7-6.1) L 12/02/21 20:50 Hgb 8.3 g/dL (14.0-18.0) L 12/02/21 20:50 Hct 25.1 % (42-52) L 12/02/21 20:50 MCV 98.8 fL (80-100) 12/02/21 20:50 MCH 32.7 pg (25-34) 12/02/21 20:50 MCHC 33.1 g/dL (32-36) 12/02/21 20:50 RDW Std Deviation 62.6 fL (36.4-46.3) H 12/02/21 20:50 RDW Coeff of Violetta 17.5 % (11.5-14.5) H 12/02/21 20:50 Plt Count 86 K/uL (130-400) L 12/02/21 20:50 MPV 9.2 fL (7.4-10.4) 12/02/21 20:50 Immature Gran % (Auto) 0.3 % 12/02/21 20:50 Neut % (Auto) 60.2 % 12/02/21 20:50 Lymph % (Auto) 28.3 % 12/02/21 20:50 Richardson % (Auto) 5.6 % 12/02/21 20:50 Eos % (Auto) 5.3 % 12/02/21 20:50 Baso % (Auto) 0.3 % 12/02/21 20:50 Neut # (Auto) 1.93 K/uL (1.4-6.5) 12/02/21 20:50 Lymph # (Auto) 0.91 K/uL (1.2-3.4) L 12/02/21 20:50 Richardson # (Auto) 0.18 K/uL (0.11-0.59) 12/02/21 20:50 Eos # (Auto) 0.17 K/uL (0-0.5) 12/02/21 20:50 Baso # (Auto) 0.01 K/uL (0-0.2) 12/02/21 20:50 Immature Gran # (Auto) 0.01 K/uL (0.00-0.02) 12/02/21 20:50 Platelet Estimate Decreased (Normal) L 12/02/21 20:50 PT 11.6 Seconds (9.0-12.0) 12/02/21 20:50 INR 1.2 (0.9-1.1) H 12/02/21 20:50 Sodium 143 mmol/L (136-145) 12/02/21 20:50 Potassium 3.8 mmol/L (3.5-5.1) 12/02/21 20:50 Chloride 116 mmol/L (98-107) H 12/02/21 20:50 Carbon Dioxide 22 mmol/L (21-32) 12/02/21 20:50 Anion Gap 5.0 (3-11) 12/02/21 20:50 BUN 22 mg/dl (7-18) H 12/02/21 20:50 Creatinine 1.45 mg/dl (0.6-1.4) H 12/02/21 20:50 Est Cr Clr Drug Dosing 48.2 ml/min 12/02/21 20:50 Est GFR ( Amer) 55.8 ml/min 12/02/21 20:50 Est GFR (Non-Af Amer) 48.1 ml/min 12/02/21 20:50 BUN/Creatinine Ratio 15.3 (10-20) 12/02/21 20:50 Glucose 291 mg/dl (70-99) H 12/02/21 20:50 Calcium 8.0 mg/dl (8.5-10.1) L 12/02/21 20:50 Magnesium 1.7 mg/dl (1.8-2.4) L 12/02/21 20:50 Total Bilirubin 2.7 mg/dl (0.2-1) H 12/02/21 20:50 Direct Bilirubin 0.7 mg/dl (0-0.2) H 12/02/21 20:50 AST 47 U/L (15-37) H 12/02/21 20:50 ALT 34 (12-78) 12/02/21 20:50 Alkaline Phosphatase 268 U/L (45-117) H D 12/02/21 20:50 Total Protein 6.4 gm/dl (6.4-8.2) 12/02/21 20:50 Albumin 2.5 gm/dl (3.4-5.0) L 12/02/21 20:50 Globulin 3.9 gm/dl (2.5-4.0) 12/02/21 20:50 Albumin/Globulin Ratio 0.6 (0.9-2) L 12/02/21 20:50 Lipase 157 U/L (73-393) 12/02/21 20:50 Urine Color Dark Yellow 12/02/21 21: Urine Appearance Clear (Clear) 12/02/21 21:27 Urine pH 5.0 (4.5-7.5) 12/02/21 21:27 Ur Specific Gregory 1.033 (1.000-1.030) H 12/02/21 21:27 Urine Protein Negative (Negative) 12/02/21 21: Urine Glucose (UA) 2+ (Negative) H 12/02/21 21: Urine Ketones Trace (Negative) H 12/02/21 21: Urine Blood 2+ (Negative) H 12/02/21 21: Urine Nitrite Negative (Negative) 12/02/21 21:27 Urine Bilirubin 1+ (Negative) H 12/02/21 21:27 Urine Urobilinogen Negative (Negative) 12/02/21 21:27 Ur Leukocyte Esterase Negative (Negative) 12/02/21 21:27 Urine WBC (Auto) 1-5 /hpf (0-5) 12/02/21 21:27 Urine RBC (Auto) 10-30 /hpf (0-4) H 12/02/21 21:27 U Hyaline Cast (Auto) 1-5 /lpf (0-5) 12/02/21 21:27 U Epithel Cells (Auto) 5-10 /lpf (0-5) H 12/02/21 21:27 Urine Bacteria (Auto) Negative (Negative) 12/02/21 21:27 SARS-CoV-2, RNA, NAAT NEGATIVE (NEGATIVE) 12/02/21 Unknown Blood Type O Positive 12/02/21 20:50 Antibody Screen NEGATIVE 12/02/21 20:50 Impressions Abdomen/Pelvis CT 12/02/21 20:[address] WITHOUT CONTRAST CT DOSE: 608.16 mGy.cm HISTORY: Chronic liver disease. Acute rectal bleeding red blood per rectum, h/o cirrhosis TECHNIQUE: Multiaxial CT images of the abdomen and pelvis were performed without contrast. A dose lowering technique was utilized adhering to the principles of ALARA. COMPARISON STUDY: CT radiation therapy study 02/16/2021 FINDINGS: Trace pericardial effusion. The artery calcifications. Nonspecific prominent epicardial lymph nodes measure up to 8 mm. The lung bases appear generally clear. No pneumatosis or pneumoperitoneum. The spleen is enlarged measuring up to 16.8 cm. Limited evaluation of the solid abdominal organs without the use of IV contrast. Unchanged 1.9 cm cystic lesion of the pancreatic head, possibly inventory representative of a sidebranch IPMN. No pancreatic ductal dilation. Contracted gallbladder. Unremarkable adrenal glands. Cirrhotic liver with TIPS shunt. Unremarkable kidneys. No hydronephrosis. Urinary bladder wall thickening with partial distention. Prostamegaly. Small fat filled bilateral inguinal hernias. Atherosclerosis of the aorta without aneurysm. There is no adenopathy. No bowel obstruction. There is mild wall thickening of the distal rectum. Colonic diverticulosis without acute diverticulitis. The visualized appendix appears normal. Small volume of abdominal pelvic ascites. Recanalization of the umb ilical vein. Note is made of upper abdominal varices. Degenerative changes of the spine, pelvis and hips. No acute fracture. IMPRESSION: 1. Mild rectal wall thickening may be secondary to partial distention versus a nonspecific proctitis. 2. Colonic diverticulosis without acute diverticulitis. 3. Cirrhotic liver disease with stigmata of portal venous hypertension including splenomegaly with abdominal varices and small volume of abdominopelvic ascites. 4. Prostamegaly with evidence of chronic bladder outlet obstruction. 5. Additional findings as above. ACT 112: Negative or not required by law. The above report was generated using voice recognition software. It may contain grammatical, syntax or spelling errors. Electronically signed by: Yovany Gonzalez M.D. 12/02/2021 10:09 PM
[2021-12-03] MEDS ORDERED: INSULIN GLARGINE SOLOSTAR 100 UNITS/ML 3 ML PEN SC STA (00:01)
[2021-12-03 00:14] LABS: Hematocrit (blood only) 24.8 % (42-52); Hemoglobin 8.3 g/dL (14.0-18.0)
[2021-12-03] MEDS: allopurinoL 100 MG TAB PO SCH ×3 (00:46→19:44)
[2021-12-03] MEDS: rifAXIMin 550 MG TABLET PO SCH ×3 (00:47→19:44)
[2021-12-03] MEDS: LACTULOSE SYRUP 20 GM/30 ML UDC PO SCH ×3 (00:48→19:45)
[2021-12-03] MEDS: INSULIN ASPART PER UNIT SC SCH ×5 (00:59→21:22)
[2021-12-03] MEDS ORDERED: DEXTROSE 50% 50 ML SYRINGE IV PRN (02:55)
[2021-12-03] MEDS ORDERED: CARBOHYDRATES FOR HYPOGLYCEMIA PO PRN (02:55)
[2021-12-03] MEDS ORDERED: GLUCOSE 40% GEL 15 GM TUBE PO PRN (02:55)
[2021-12-03] MEDS ORDERED: GLUCAGON FOR INJ 1 MG VIAL SQ PRN (02:55)
[2021-12-03] MEDS ORDERED: PROMETHAZINE HCL 12.5 MG in SODIUM CHLORIDE 0.9% 50 ML IV PRN (02:55)
[2021-12-03] MEDS ORDERED: traMADol HCL 50 MG TABLET PO PRN (02:55)
[2021-12-03] MEDS ORDERED: GLUCOSE 10 TABS/TUBE PO PRN (02:55)
[2021-12-03 05:25] LABS: Hematocrit (blood only) 25.1 % (42-52); Hemoglobin 8.6 g/dL (14.0-18.0); Mean Corpuscular Hemoglobin 33.6 pg (25-34); Mean Corpuscular Hgb Conc 34.3 g/dL (32-36); Mean Platelet Volume 9.2 fL (7.4-10.4); Platelet Count 83 K/uL (130-400); RDW Coefficient of Variation 17.6 % (11.5-14.5); RDW Standard Deviation 62.7 fL (36.4-46.3); Red Blood Count 2.56 M/uL (4.7-6.1); White Blood Count 3.18 K/uL (4.8-10.8)
--- NOTE | 2021-12-03 05:35 | Hospitalist Progress Note ---
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 March - no acute concerns given recent colonoscopy, ok to DC home w/ outpt follow up Hgb stable, last BM w/BRBPR yesterday While in the hospital no BM until this evening - per pt no blood Discussed my conversation w/Dr. March and stable Hgb with the pt. Plan to likely DC home tomorrow if no acute changes overnight. DVT prophylaxis. SCDs Re: GI bleed Full code Admission and Anticipated Discharge Date Admission Date: December 02, 2021 Subjective Pt seen in follow up of recurrent GI bleed Currently sitting up in bed in NAD Had episode of RBBPR yesterday then no BMs in the hospital until this evening Pt reports there was no blood in the stool this evening No chest pain, shortness of breath, abd. pain, n/v Discussed with GI, Dr. March and given his recent colonoscopy, no acute concerns, ok for DC and follow up as outpt Discussed with the pt who is concerned d/t recurrence Hgb stable and pt re-assured Plan to likely DC in the morning if no acute changes develop overnight Review of Systems Review of Systems: All systems reviewed & are unremarkable except as noted in Subjective Physical Exam Physical Exam: GENERAL: Comfortable, pleasant elderly M in NAD HEENT: NC/AT, EOMI, PERRL. NECK : Supple, no tenderness CHEST : CTA, no tenderness HEART : RRR, no obvious murmurs ABDOMEN: Some distention, nontender EXTREMITIES : No LE swelling, moves extremities NEUROLOGIC : alert and oriented, answering questions appropriately. no facial asymmetry, speech fluent, moves extremities SKIN: warm, dry Results & Data Results & Data ([facility]) Vital Signs (Past 12 Hours) Vital Signs Temp Pulse Pulse Resp BP BP Pulse Ox 12/03/21 04:30 49 L 16 155/74 H 97 12/03/21 01:47 54 L 16 142/61 H 96 12/02/21 21:32 59 L 18 161/70 H 98 12/02/21 20:32 61 23 98 12/02/21 20:09 36.2 C L 71 18 107/52 L 99 Laboratory Results 12/03/21 12/03/21 12/03/21 Range/Units 20:39 17:10 12:06 Hgb 8.4 L (14.0-18.0) g/dL Hct 25.1 L (42-52) % POC Glucose 154 H 139 H (70-99) mg/dl 12/03/21 12/03/21 Range/Units 12:01 08:10 Hgb (14.0-18.0) g/dL Hct (42-52) % POC Glucose 262 H 184 H (70-99) mg/dl Medications Administered Current Inpatient Medications Acetaminophen (Acetaminophen 325 Mg Tab) 325 mg PO Q6H PRN PRN Reason: Mild Pain Stop: 01/02/22 02:54 Allopurinol (Allopurinol 100 Mg Tab) 100 mg PO BID JODI Stop: 01/01/22 23:57 Last Admin: 12/03/21 00:46 Dose: 100 mg Documented by: Citalopram Hydrobromide (Citalopram 20 Mg Tab) 10 mg PO QAM JODI Stop: 01/02/22 08:59 Dextrose (Dextrose 50% 50 Ml Syringe) 25 - 50 ml IV UD PRN; Protocol PRN Reason: Hypoglycemia Protocol Stop: 01/02/22 02:54 Finasteride (Finasteride 5 Mg Tab) 5 mg PO DAILY JODI Stop: 01/02/22 08:59 Glucagon (Glucagon For Inj 1 Mg Vial) 1 mg SQ UD PRN; Protocol PRN Reason: Hypoglycemia Protocol Stop: 01/02/22 02:54 Glucose (Glucose 10 Tabs/Tube) 4 - 8 tabs PO UD PRN; Protocol PRN Reason: Hypoglycemia Protocol Stop: 01/02/22 02:54 Glucose (Glucose 40% Gel 15 Gm Tube) 15 - 30 gm PO UD PRN; Protocol PRN Reason: Hypoglycemia Protocol Stop: 01/02/22 02:54 Promethazine HCl 12.5 mg/ (Sodium Chloride) 50.5 mls @ 202 mls/hr IV Q6H PRN PRN Reason: Nausea And Vomiting Stop: 01/02/22 02:54 Insulin Aspart (Insulin Aspart Per Unit) 0 units SC ACHS [facility] Stop: 01/02/22 00:01 Last Admin: 12/03/21 00:59 Dose: 5 units Documented by: Insulin Glargine (Insulin Glargine Solostar 100 Units/Ml 3 Ml Pen) 5 units SC HS [facility] Stop: 01/02/22 20:59 Lactulose (Lactulose Syrup 20 Gm/30 Ml Udc) 10 gm PO BID [facility] Stop: 01/02/22 00:14 Last Admin: 12/03/21 00:48 Dose: 10 gm Documented by: Miscellaneous (Carbohydrates For Hypoglycemia ) 15 - 30 gm PO UD PRN PRN Reason: Hypoglycemia Protocol Stop: 01/02/22 02:54 Pantoprazole Sodium (Pantoprazole 40 Mg Tab) 40 mg PO QAM [facility] Stop: 01/02/22 08:59 Rifaximin (Rifaximin 550 Mg Tablet) 550 mg PO BID [facility] Stop: 01/01/22 23:57 Last Admin: 12/03/21 00:47 Dose: 550 mg Documented by: Tramadol HCl (Tramadol Hcl 50 Mg Tablet) 25 - 50 mg PO Q4H PRN PRN Reason: Pain Stop: 01/02/22 02:54
[2021-12-03 05:43] LABS: BUN Creatinine Ratio 16.3 (10-20); Calcium 8.2 mg/dl (8.5-10.1); Creatinine Clr Calc Pharmacy 54.7 ml/min; Est GFR (African American) 64.8 ml/min; Est GFR (Non-African American) 55.9 ml/min; Potassium 3.8 mmol/L (3.5-5.1)
[2021-12-03 05:58] LABS: Basophils # (auto) 0.01 K/uL (0-0.2); Basophils % (auto) 0.3 %; Eosinophils % (auto) 9.4 %; Giant Platelets 1+; Immature Granulocytes # (auto) 0.02 K/uL (0.00-0.02); Immature Granulocytes % (auto) 0.6 %; Lymphocytes # (auto) 1.03 K/uL (1.2-3.4); Lymphocytes % (auto) 32.4 %; Monocytes % (auto) 6.3 %; Neutrophils # (auto) 1.62 K/uL (1.4-6.5)
[2021-12-03] MEDS: FINASTERIDE 5 MG TAB PO SCH (08:12)
[2021-12-03] MEDS: CITALOPRAM 20 MG TAB PO SCH (08:12)
[2021-12-03] MEDS: PANTOprazole 40 MG TAB PO SCH (08:12)
[2021-12-03 12:17] LABS: Hematocrit (blood only) 25.1 % (42-52); Hemoglobin 8.4 g/dL (14.0-18.0)
[2021-12-03] MEDS: ACETAMINOPHEN 325 MG TAB PO PRN (19:44)
[2021-12-03] MEDS ORDERED: INSULIN GLARGINE SOLOSTAR 100 UNITS/ML 3 ML PEN SC SCH (21:00)
[2021-12-04 07:23] LABS: Hematocrit (blood only) 25.3 % (42-52); Hemoglobin 8.8 g/dL (14.0-18.0); Mean Corpuscular Hemoglobin 33.8 pg (25-34); Mean Corpuscular Hgb Conc 34.8 g/dL (32-36); Mean Corpuscular Volume 97.3 fL (80-100); RDW Coefficient of Variation 17.5 % (11.5-14.5); RDW Standard Deviation 61.7 fL (36.4-46.3); White Blood Count 3.45 K/uL (4.8-10.8)
[2021-12-04 07:30] LABS: Mean Platelet Volume 10.3 fL (7.4-10.4); Platelet Count 97 K/uL (130-400)
[2021-12-04 07:35] VITALS: O2SAT 98
[2021-12-04] MEDS: allopurinoL 100 MG TAB PO SCH (08:13)
[2021-12-04] MEDS: FINASTERIDE 5 MG TAB PO SCH (08:14)
[2021-12-04] MEDS: LACTULOSE SYRUP 20 GM/30 ML UDC PO SCH (08:14)
[2021-12-04] MEDS: CITALOPRAM 20 MG TAB PO SCH (08:14)
[2021-12-04] MEDS: PANTOprazole 40 MG TAB PO SCH (08:16)
[2021-12-04] MEDS: rifAXIMin 550 MG TABLET PO SCH (08:16)
[2021-12-04] MEDS: ACETAMINOPHEN 325 MG TAB PO PRN (08:22)
[2021-12-04] MEDS: INSULIN ASPART PER UNIT SC SCH ×2 (08:22→12:30)
[2021-12-04 09:26] LABS: BUN Creatinine Ratio 13.3 (10-20); Calcium 8.4 mg/dl (8.5-10.1); Creatinine Clr Calc Pharmacy 58.3 ml/min; Est GFR (African American) 70.1 ml/min; Est GFR (Non-African American) 60.5 ml/min; Potassium 3.8 mmol/L (3.5-5.1)
--- NOTE | 2021-12-04 10:25 | Gastrointestinal Consultation ---
Date of Consultation December 04, 2021 Assessment & Plan (1) Acute lower GI bleeding: Painless rectal bleeding, secondary to radiation proctitis vs. diverticular bleeding in a pt with FOFANA cirrhosis with EV. He is hemodynamically stable and rectal bleeding seems to have stopped. Recommend: BID hydrocortisone suppositories and continue all OP meds (same as prior to admission). Continue OP GI f/u as previously scheduled and hepatology eval for liver transplant. Supervising Physician Co-Signing Physician Notes Attending attestation I have seen, examined this patient, and agree with the findings and above by our mid-level provider JEFF Olson, with the following additions: - Doing well, Hb stable - History would suggest etiology found last week on oupt colonscopy-XRT proctitis. Will empirically treat - advance diet - hepatology oupt f/u - no signs of upper GI bleed - will sign off, call with questions History of Present Illness Reason for Consultation: Rectal bleeding Requesting Physician: Dr. Tapia Attending Physician: Crystal Delaney DO History of Present Illness Mr. Luis Hale is a 69 yr old male pt of Dr. Hill with a hx of FOFANA cir rhosis with grade 2 EV and a gastroesophageal varix, with ascites, on diuretics. He noticed palpitations and exertional SOB beginning about a week ago and eventually presented to his PCP where Hb was 6. 8 yesterday (baseline is approx 10). He was directed to present to the ED for eval. Regarding hx of FOFANA cirrhosis, dx'ed during a GI bleed in 2013, since then no further bleeding episodes. he follows with [facility] hepatology and due to low MELD, has not been evaluated for liver transplant. He has ascites, with hx of two paracenteses: Sep 2019 4 L and 02/04/20 5.5Ls removed. He is maintained on fur osemide 40/spironlactone 100 daily. He has a hx of hepatic encephalopathy, maintained on lactulose and Xifaxan. Allergies Allergy/AdvReac Type Severity Reaction Status Date / Time No Known Allergies Allergy Mild Verified 12/02/21 22:09 Home Medications Medication Instructions Recorded Confirmed Type citalopram 10 mg tablet (Celexa) 10 mg PO QAM 03/24/20 12/02/21 History lactulose 10 gram/15 mL oral 10 - 15 g PO DAILY 03/24/20 12/02/21 History solution omeprazole 40 mg capsule,delayed 40 mg PO QAM 03/24/20 12/02/21 History release allopurinol 100 mg tablet 100 mg PO BID 05/16/20 12/02/21 History rifaximin 550 mg tablet (Xifaxan) 550 mg PO BID 12/08/20 12/02/21 History finasteride 5 mg tablet 5 mg PO DAILY 11/03/21 12/02/21 History leuprolide 7.5 mg (1 month) 7.5 mg SUBCUT MONTHLY 12/02/21 12/02/21 History subcutaneous syringe (Eligard) Patient History Medical History (Updated 12/03/21 @ 04:06 by Yordan Andersen MD) Anemia Anemia 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 CKD (chronic kidney disease) stage 3, GFR 30-59 ml/min DVT prophylaxis Encounter for pre-operative examination Encounter for pre-operative examination Esophageal varices Esophageal varices with bleeding GAVE (gastric antral vascular ectasia) GERD (gastroesophageal reflux disease) Gout NO ISSUES CURRENTLY History of panic attacks History of recent blood transfusion 07/13/2020 Hypertension Low hemoglobin reason for scheduled egd/colonoscopy Psoriasis on Humira [id number] Psoriasis Shortness of breath Symptomatic anemia T2DM (type 2 diabetes mellitus) Upper GI bleed Surgical History History of abdominal paracentesis Every 2 weeks History of colonoscopy with polypectomy History of esophagogastroduodenoscopy (EGD) last 10/25 revealed grade 2 esophageal varices, grade 1 gastric varices STABLE History of prostate biopsy History of tonsillectomy and adenoidectomy S/P TIPS (transjugular intrahepatic portosystemic shunt) Family History Father , "3/4 liver gone due to drinking" Colorectal cancer, Onset Age: 63 Mother Lung cancer Daughter Cancer cervical and thyroid cancers Ovarian cancer Other No family history of adverse response to anesthesia 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 Smoking Status: Never smoker Second Hand Exposure: Yes; Hx Alcohol Use: No Hx Substance Use: No Preferred Language: Turkmen Communication Ability: Effective Visual Impairment: No Limitations Hearing Ability: Normal Door To Door Fundraising Collector Required: No Beliefs That Will Affect Care: None marital status: Current Living Situation: Spouse 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 How many Children do You have: 6 How many Children do You have Comment: one , eldest daughter in her sleep from seizure disorder Other Information That Helps Us Care for You: No Feels Safe at Home: Yes Childhood Exposure to Second-Hand Smoke: Yes Diet Comment: "I watch my sugar, average fasting is 140 mg/dl" caffeine: Yes (cola, sugar free, decaf) during the past year weight has: remained stable Dental Care, Regularly: No Physical Activity Frequency: Does not Exercise Seatbelt Use: always Sunscreen Use: Yes Assistive Devices: None Review of Systems Review of Systems: ROS: Gen: Denies weakness, fevers, weight loss Eyes: No eye redness, or pain, no recent vision changes Resp: No SOB, no cough Cardio: No palpitations/irregular beats, no chest pain GI: as per HPI, otherwise (-) : Denies pain on urination Skin: No jaundice, itching or new rashes Physical Exam Constitutional: well developed and cooperative Eyes: PERRL, conjunctivae normal, anicteric sclerae Respiratory: normal respiratory effort, lungs clear to auscultation Cardiovascular: RRR, no murmur, no edema Gastrointestinal (Abdomen): Inspection/Auscultation: abdomen normal to inspection and normal bowel sounds; abdomen not distended and no abdominal edema + mild ascites Skin: no rashes, warm and dry normal turgor Neurologic: PERRL, EOMI, accommodation nl, no face palsy, no dysarthria awake; not confused Psychiatric: A+Ox3, euthymic affect Orientation: alert, oriented x 3 and cooperative Results & Data ([facility]) Vital Signs (Past 12 Hours) Vital Signs Temp Pulse Resp BP Pulse Ox 12/04/21 07:34 36.8 C 53 L 16 166/69 H 98 12/03/21 23:23 36.9 C 52 L 18 144/73 H 99 Laboratory Results WBC 3.4, Hb 8.8, Hct 25, Plts 97, Na 141, K 3.8, Cl 115, CO2 23, BUN 21, Cr 1.28, glucose 198. Diagnostic Findings CTAP non contrast: 1. Mild rectal wall thickening may be secondary to partial distention versus a nonspecific proctitis. 2. Colonic diverticulosis without acute diverticulitis. 3. Cirrhotic liver disease with stigmata of portal venous hypertension including splenomegaly with abdominal varices and small volume of abdominopelvic ascites. 4. Prostamegaly with evidence of chronic bladder outlet obstruction. 5. Additional findings as above.
[2021-12-04] MEDS ORDERED: HYDROCORTISONE ACETATE 25 MG SUPP PR SCH (10:30)
[2021-12-04 15:51] VITALS: BP 127/57; TEMP 98.4
--- NOTE | 2021-12-04 15:51 | Discharge Summary ---
Date of Service December 04, 2021 Admission HPI Per Admitting Provider History obtained from patient and records. 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 2 weeks ago, patient noted hematochezia symptoms without hematemesis, abdominal pain, fever, chills. Patient seen at the weekend clinic. Patient referred for outpatient colonoscopy. Bleeding spontaneously resolved as per patient. Patient underwent outpatient colonoscopy 2 days ago. Sigmoid diverticulosis with mild nonbleeding radiation proctitis noted. Yesterday patient noted hard stools on defecation without actual pain. Today, patient had recurrent hematochezia, around 3 bowel movements without hematemesis, pain, fever, chills. Not diarrhea as per patient. Patient consulted ER for evaluation. IV PPI and octreotide administered at the ER. Medical History as above 2019 EGD showed grade 1 through 2 esophageal varices, portal hypertensive gastropathy. 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 Admission Exam Per Admitting Provider Physical Exam: GENERAL: Comfortable, pleasant, no respiratory distress SKIN: Pallor,, warm HEENT: Alopecia, pale palpebral conjunctivae, no ptosis, dry buccal mucosa NECK : Supple, no tenderness CHEST : CTA, no tenderness HEART : RRR, no obvious murmurs ABDOMEN: Some distention, nontender EXTREMITIES : No LE swelling/tenderness, no other conspicuous deformities noted NEUROLOGIC : Coherent, no facial asymmetry, no other gross focality Principal Diagnosis Acute lower GI bleeding FOFANA cirrhosis-compensated Discharge Exam CONSTITUTIONAL: WNWD, vitals as above, generally well-appearing, NAD EYES: normal conjunctivae, no scleral icterus ENT: external ear and nose normal, MMM NECK: trachea midline RESPIRATORY: clear to auscultation bilaterally, no crackles, rales or wheezes, normal respiratory effort CARDIOVASCULAR: regular rate and rhythm, S1 and 2 heard without murmurs, gallops or rubs, no JVD, no peripheral edema GASTROINTESTINAL: soft, nontender, ND, no guarding MUSCULOSKELETAL: strength 5/5 throughout, head is normocephalic and atraumatic, neck supple, normal palpation of chest wall without tenderness SKIN: warm and dry NEUROLOGIC: CN 2-12 grossly intact, no sensory deficit, normal cognition, normal speech, no tremor, no gross focal deficits. PSYCHIATRIC: alert cooperative and oriented to person, place and time. Discharge Data Allergies Allergy/AdvReac Type Severity Reaction Status Date / Time No Known Allergies Allergy Mild Verified 12/02/21 22:09 Consultations 12/02/21 22:20 ED Decision to Admit Stat 12/03/21 08:07 Consult Gastroenterology Routine Ordered Studies Laboratory Results WBC 3.45 K/uL (4.8-10.8) L 12/04/21 06:31 RBC 2.60 M/uL (4.7-6.1) L 12/04/21 06:31 Hgb 8.8 g/dL (14.0-18.0) L 12/04/21 06:31 Hct 25.3 % (42-52) L 12/04/21 06:31 MCV 97.3 fL (80-100) 12/04/21 06:31 MCH 33.8 pg (25-34) 12/04/21 06:31 MCHC 34.8 g/dL (32-36) 12/04/21 06:31 RDW Std Deviation 61.7 fL (36.4-46.3) H 12/04/21 06:31 RDW Coeff of Violetta 17.5 % (11.5-14.5) H 12/04/21 06:31 Plt Count 97 K/uL (130-400) L 12/04/21 06:31 MPV 10.3 fL (7.4-10.4) 12/04/21 06:31 Immature Gran % (Auto) 0.6 % 12/03/21 05:05 Neut % (Auto) 51.0 % 12/03/21 05:05 Lymph % (Auto) 32.4 % 12/03/21 05:05 [place]ney % (Auto) 6.3 % 12/03/21 05:05 Eos % (Auto) 9.4 % 12/03/21 05:05 Baso % (Auto) 0.3 % 12/03/21 05:05 Neut # (Auto) 1.62 K/uL (1.4-6.5) 12/03/21 05:05 Lymph # (Auto) 1.03 K/uL (1.2-3.4) L 12/03/21 05:05 [place]ney # (Auto) 0.20 K/uL (0.11-0.59) 12/03/21 05:05 Eos # (Auto) 0.30 K/uL (0-0.5) 12/03/21 05:05 Baso # (Auto) 0.01 K/uL (0-0.2) 12/03/21 05:05 Immature Gran # (Auto) 0.02 K/uL (0.00-0.02) 12/03/21 05:05 Hyposegmented Neuts 1+ 12/03/21 05:05 Platelet Estimate Decreased (Normal) L 12/02/21 20:50 Giant Platelets 1+ 12/03/21 05:05 PT 11.6 Seconds (9.0-12.0) 12/02/21 20:50 INR 1.2 (0.9-1.1) H 12/02/21 20:50 Sodium 141 mmol/L (136-145) 12/04/21 06:31 Potassium 3.8 mmol/L (3.5-5.1) 12/04/21 06:31 Chloride 112 mmol/L (98-107) H 12/04/21 06:31 Carbon Dioxide 21 mmol/L (21-32) 12/04/21 06:31 Anion Gap 8.0 (3-11) 12/04/21 06:31 BUN 16 mg/dl (7-18) 12/04/21 06:31 Creatinine 1.20 mg/dl (0.6-1.4) 12/04/21 06:31 Est Cr Clr Drug Dosing 58.3 ml/min 12/04/21 06:31 Est GFR ( Amer) 70.1 ml/min 12/04/21 06:31 Est GFR (Non-Af Amer) 60.5 ml/min 12/04/21 06:31 BUN/Creatinine Ratio 13.3 (10-20) 12/04/21 06:31 Glucose 136 mg/dl (70-99) H 12/04/21 06:31 POC Glucose 142 mg/dl (70-99) H 12/04/21 12:01 Calcium 8.4 mg/dl (8.5-10.1) L 12/04/21 06:31 Magnesium 1.7 mg/dl (1.8-2.4) L 12/02/21 20:50 Total Bilirubin 2.7 mg/dl (0.2-1) H 12/02/21 20:50 Direct Bilirubin 0.7 mg/dl (0-0.2) H 12/02/21 20:50 AST 47 U/L (15-37) H 12/02/21 20:50 ALT 34 (12-78) 12/02/21 20:50 Alkaline Phosphatase 268 U/L (45-117) H D 12/02/21 20:50 Total Protein 6.4 gm/dl (6.4-8.2) 12/02/21 20:50 Albumin 2.5 gm/dl (3.4-5.0) L 12/02/21 20:50 Globulin 3.9 gm/dl (2.5-4.0) 12/02/21 20:50 Albumin/Globulin Ratio 0.6 (0.9-2) L 12/02/21 20:50 Lipase 157 U/L (73-393) 12/02/21 20:50 Urine Color Dark Yellow 12/02/21 21: Urine Appearance Clear (Clear) 12/02/21 21: Urine pH 5.0 (4.5-7.5) 12/02/21 21:27 Ur Specific [place] 1.033 (1.000-1.030) H 12/02/21 21:27 Urine Protein Negative (Negative) 12/02/21 21: Urine Glucose (UA) 2+ (Negative) H 12/02/21 21: Urine Ketones Trace (Negative) H 12/02/21 21: Urine Blood 2+ (Negative) H 12/02/21 21: Urine Nitrite Negative (Negative) 12/02/21 21: Urine Bilirubin 1+ (Negative) H 12/02/21 21: Urine Urobilinogen Negative (Negative) 12/02/21 21: Ur Leukocyte Esterase Negative (Negative) 12/02/21 21:27 Urine WBC (Auto) 1-5 /hpf (0-5) 12/02/21 21:27 Urine RBC (Auto) 10-30 /hpf (0-4) H 12/02/21 21:27 U Hyaline Cast (Auto) 1-5 /lpf (0-5) 12/02/21 21:27 U Epithel Cells (Auto) 5-10 /lpf (0-5) H 12/02/21 21:27 Urine Bacteria (Auto) Negative (Negative) 12/02/21 21:27 SARS-CoV-2, RNA, NAAT NEGATIVE (NEGATIVE) 12/02/21 Unknown Blood Type O Positive 12/02/21 20:50 Antibody Screen NEGATIVE 12/02/21 20:50 Impressions Abdomen/Pelvis CT 12/02/21 20:[address] WITHOUT CONTRAST CT DOSE: 608.16 mGy.cm HISTORY: Chronic liver disease. Acute rectal bleeding red blood per rectum, h/o cirrhosis TECHNIQUE: Multiaxial CT images of the abdomen and pelvis were performed without contrast. A dose lowering technique was utilized adhering to the principles of ALARA. COMPARISON STUDY: CT radiation therapy study 02/16/2021 FINDINGS: Trace pericardial effusion. The artery calcifications. Nonspecific prominent epicardial lymph nodes measure up to 8 mm. The lung bases appear generally clear. No pneumatosis or pneumoperitoneum. The spleen is enlarged measuring up to 16.8 cm. Limited evaluation of the solid abdominal organs without the use of IV contrast. Unchanged 1.9 cm cystic lesion of the pancreatic head, possibly printing sales representative of a sidebranch IPMN. No pancreatic ductal dilation. Contracted gallbladder. Unremarkable adrenal glands. Cirrhotic liver with TIPS shunt. Unremarkable kidneys. No hydronephrosis. Urinary bladder wall thickening with partial distention. Prostamegaly. Small fat filled bilateral inguinal hernias. Atherosclerosis of the aorta without aneurysm. There is no adenopathy. No bowel obstruction. There is mild wall thickening of the distal rectum. Colonic diverticulosis without acute diverticulitis. The visualized appendix appears normal. Small volume of abdominal pelvic ascites. Recanalization of the umbilical vein. Note is made of upper abdominal varices. Degenerative changes of the spine, pelvis and hips. No acute fracture. IMPRESSION: 1. Mild rectal wall thickening may be secondary to partial distention versus a nonspecific proctitis. 2. Colonic diverticulosis without acute diverticulitis. 3. Cirrhotic liver disease with stigmata of portal venous hypertension including splenomegaly with abdominal varices and small volume of abdominopelvic ascites. 4. Prostamegaly with evidence of chronic bladder outlet obstruction. 5. Additional findings as above. ACT 112: Negative or not required by law. The above report was generated using voice recognition software. It may contain grammatical, syntax or spelling errors. Electronically signed by: Yovany Gonzalez M.D. 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 March - no acute concerns given recent colonoscopy, ok to DC home w/ outpt follow up Hgb stable, last BM w/BRBPR yesterday While in the hospital no BM until this evening - per pt no blood Discussed my conversation w/Dr. March and stable Hgb with the pt. Plan to likely DC home tomorrow if no acute changes overnight. DVT prophylaxis. SCDs Re: GI bleed Full code Discharge Plan Discharge Items Patient Disposition: Home - Self-Care Reason For Visit: LGIB Discharge Diagnosis: Acute lower GI bleeding FOFANA cirrhosis-compensated Condition on Discharge: Good Activity: Resume your previous activity Non-emergency contact: Primary Care Provider Call non-emergency contact if: you have any medication questions and your symptoms worsen Follow-up/Referrals: Francisco Cisse MD [Primary Care Provider] - (Date & Time 12/07/2021 11:20 AM Provider Francisco Cisse MD Department General Internal Medicine [facility] ) Franki Herbert MD [Surgeon] - (Date & Time 12/05/2021 11:20 AM Provider Franki Herbert MD Department Nephrology, [facility] ) Diet: Regular Addtl Attending Provider Instructions: Cont with twice daily hydrocortisone suppositories and continue all outpatient medications (same as prior to admission). Continue outpatient Gastroenterology followup as previously scheduled and hepatology evaluation for liver transplant. Please follow-up with your primary care provider within one week of hospital discharge to ensure your bleeding has not returned and you are doing well on the suppository therapy. It was a pleasure taking care of you! Please call if you have any questions or problems. You can reach a [facility] hospitalist on duty at [facility] 24 hours a day by calling [phone]. Take care of yourself. Crystal Delaney DO [facility] Pending Studies at Discharge: No Stand-Alone Forms: My [facility] Medications and DC Order Prescriptions: New hydrocortisone acetate [Anucort-HC] 25 mg Suppository 25 mg SC BID Qty: 12 RF: 0 Continued citalopram [Celexa] 10 mg tablet 10 mg PO QAM RF: 0 omeprazole 40 mg capsule,delayed release(DR/EC) 40 mg PO QAM RF: 0 lactulose 10 gram/15 mL solution 10 - 15 g PO DAILY RF: 0 allopurinol 100 mg Tablet 100 mg PO BID RF: 0 Xifaxan 550 mg tablet 550 mg PO BID RF: 0 Eligard 7.5 mg (1 month) syringe 7.5 mg subcut MONTHLY RF: 0 finasteride 5 mg Tablet 5 mg PO DAILY RF: 0 Discharge Orders: Discharge Order (Routine); Ordered 12/04/21 Ordered By: Crystal Delaney Admission Data Admit Date/Time: 12/02/21 23:58 Attending Provider: Crystal Delaney Admit Provider: Yordan Andersen Primary Care Provider: Francisco Cisse Other Providers: Yordan Andersen ; Barbara March
[2021-12-04 15:58] VITALS: PULSE 52
== END 2021-12-04 16:44 | disposition home or self-care (01) ==
LOC: ED 20:02 → EDINP 20:02 → SUATTDRO 23:58 → EDINP 12-03 03:02 → 3E 12-03 11:36

== ENCOUNTER 2022-03-01 17:52 | Inpatient (IN) ==
--- NOTE | 2022-03-01 18:14 | Emergency Department Note ---
Impression & Plan Precordial chest pain, Anemia, Rectal bleeding, Liver disease, Elevated troponin ED Provider Note NAME: MERRITT TAPIA AGE: 71 SEX: M : 1950 ARRIVES VIA: Ambulance INFORMANT: [Patient][ems] ED PROVIDER(S): [Scott Huynh MD] CHIEF COMPLAINT: Chest pain HISTORY OF PRESENT ILLNESS: The patient is a 71-year-old male presents to the ER with complaints of chest discomfort. The patient was carrying a bag for his . He was trying to get her moved into [facility]. He was working pretty hard and developed some left central chest pain. The pain was a 6/10. He was short of breath. No nausea or sweating. The pain lasted 10 minutes and seemed to resolve with rest. The patient was given oral baby aspirin on the way here, no nitroglycerin. He now is resting comfortably. Patient has no diagnosis of coronary disease. He does have a history of liver disease and is on the liver transplant list. He was in baseline health today before this occurred. Of note, the patient does have a history of rectal bleeding. He has been having rectal bleeding for the last for 5 days. He had a heavy bout of bleeding today just before arrival and actually soiled his pants. REVIEW OF SYSTEMS: See HPI for pertinent positives and negatives. A total of ten systems were reviewed and were otherwise negative. PMHx/PSHx: See Below SOCIAL HISTORY: See Below. PHYSICAL EXAM: GENERAL: Patient is in no acute distress. HEENT: No acute trauma, normocephalic atraumatic, mucous membranes moist, no nasal congestion, no scleral icterus. NECK: No stridor, no adenopathy, no meningismus, trachea is midline. LUNGS: Clear to auscultation bilaterally, no wheeze, no rhonchi, breath sounds equal. Chest: Tender over the central lower sternal chest wall. HEART: 2/6 systolic murmur, regular rate and rhythm. ABDOMEN: Soft, nontender, bowel sounds positive, no hernias, no peritonitis. EXTREMITIES: No cyanosis, mild bilateral pedal edema, full range of motion of all the joints without pain or difficulty, no signs for acute trauma. NEUROLOGIC: Oriented x 3, no acute motor or sensory deficits, no focal weakness. SKIN: Patient has a patchy erythematous flaky/dry rash across his skin consistent with his diagnosis of psoriasis. Somewhat pale. Rectal: Bright red blood per rectum, heme positive DIFFERENTIAL DIAGNOSIS: Cardiac ischemia, aortic dissection, pulmonary embolism, pneumothorax, pneumonia, pericarditis, myocarditis, esophageal rupture, GERD, cholecystitis, pancreatitis, musculoskeletal, as well as other pathologies. EMERGENCY DEPARTMENT COURSE/PROCEDURES: ECG: Indication was chest pain. The ECG shows a normal sinus rhythm with a rate of 71. There are some subtle ST depressions in the lateral leads. No ST elevation. The QTc is 480. Compared an ECG from 24 March 2020, the lateral ST changes are more pronounced. Continuous Cardiac Monitoring: An order was placed for continuous cardiac monitoring. The monitor shows a rate of 75 with normal sinus rhythm. Critical Care Note: I have personally spent 39 minutes of critical care time in the direct management of this patient. This includes bedside care, interpretation of diagnostic studies, and testing, discussion with consultants, patient, and family members, and other required patient management activities. This 39 minutes is in excess of all separately billable procedures. MEDICAL DECISION MAKING: There is a lower white blood cell count, this has been documented before. The patient's hemoglobin was low at just over 7, I suspect it will drop a bit more as he has had some recent rectal bleeding. The value today is lower than his ba seline. Platelet count was low but this has been documented before. No coagulopathy. No significant electrolyte abnormality in need of emergent correction. Some liver enzyme elevation was noted consistent with his liver disease. Lipase was normal. Covid testing was negative. Chest x-ray did not show pneumonia or CHF. ECG showed a sinus rhythm with some subtle ST depressions laterally. No ST elevation. The initial troponin was normal however, the second troponin was a bit elevated consistent with cardiac strain/injury. On exam, the patient did have bright red blood per rectum. Patient was ordered for blood to be readied for transfusion--units were held. No blood was transfused in the ED. The lower hemoglobin value may have contributed to his chest pain and shortness of breath. The patient is in need of a hospital stay. He is anemic, he has bright red blood per rectum, he has a bumped troponin and presents with chest discomfort that was started with exertion. The chest discomfort resolved with rest. I spoke with the patient and case management. The on-call hospitalist was consulted. 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 CKD (chronic kidney disease) stage 3, GFR 30-59 ml/min DVT prophylaxis Encounter for pre-operative examination Encounter for pre-operative examination Esophageal varices Esophageal varices with bleeding GAVE (gastric antral vascular ectasia) GERD (gastroesophageal reflux disease) Gout NO ISSUES CURRENTLY History of panic attacks History of recent blood transfusion 07/13/2020 Hypertension Low hemoglobin reason for scheduled egd/colonoscopy Psoriasis on Humira [id number] Psoriasis Shortness of breath Symptomatic anemia T2DM (type 2 diabetes mellitus) Upper GI bleed Surgical History History of abdominal paracentesis Every 2 weeks History of colonoscopy with polypectomy History of esophagogastroduodenoscopy (EGD) last 10/25 revealed grade 2 esophageal varices, grade 1 gastric varices STABLE History of prostate biopsy History of tonsillectomy and adenoidectomy S/P TIPS (transjugular intrahepatic portosystemic shunt) Family History Father , "3/4 liver gone due to drinking" Colorectal cancer, Onset Age: 63 Mother Lung cancer Daughter Cancer cervical and thyroid cancers Ovarian cancer Other No family history of adverse response to anesthesia 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 Smoking Status: Never smoker Second Hand Exposure: Yes; Hx Alcohol Use: No Hx Substance Use: No Preferred Language: [place]ese Communication Ability: Effective Visual Impairment: No Limitations Hearing Ability: Normal Flasher Adjuster Required: No Beliefs That Will Affect Care: None marital status: Current Living Situation: Spouse 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 How many Children do You have: 6 How many Children do You have Comment: one , eldest daughter in her sleep from seizure disorder Feels Safe at Home: Yes Childhood Exposure to Second-Hand Smoke: Yes Diet Comment: "I watch my sugar, average fasting is 140 mg/dl" caffeine: Yes (cola, sugar free, decaf) during the past year weight has: remained stable Dental Care, Regularly: No Physical Activity Frequency: Does not Exercise Seatbelt Use: always Sunscreen Use: Yes Assistive Devices: Glasses Allergies Allergies Allergy/AdvReac Type Severity Reaction Status Date / Time No Known Allergies Allergy Mild Verified 03/01/22 19:47 Home Meds Home Medications Medication Instructions Recorded Confirmed citalopram 10 mg tablet (Celexa) 10 mg PO QAM 03/24/20 03/01/22 lactulose 10 gram/15 mL oral See Rx Instructions .ROUTE .COMPLEX 03/24/20 03/01/22 solution omeprazole 40 mg capsule,delayed 40 mg PO QAM 03/24/20 03/01/22 release allopurinol 100 mg tablet 100 mg PO BID 05/16/20 03/01/22 rifaximin 550 mg tablet (Xifaxan) 550 mg PO BID 12/08/20 03/01/22 finasteride 5 mg tablet 5 mg PO DAILY 11/03/21 03/01/22 Results & Data (ED) Vital Signs Vital Signs - 24 hr 03/01/22 17:56 Temperature 37.4 C Temperature Source Oral Pulse Rate 72 Respiratory Rate 21 Respiratory Effort / Characteristics Non-Labored Respiratory Depth Normal Respiratory Pattern Regular Blood Pressure 142/63 H Blood Pressure Mean 89 Blood Pressure Position Semi-fowlers Pulse Oximetry 98 Oxygen Delivery Method Room Air Sepsis Recent Fever Within 48 Hours No Sepsis New/Unexplained Change in Mental Status N/A Sepsis Action Taken by Nursing No Action Required Home Medications Current Medication List: was personally reviewed by me Laboratory Data Attestation: I reviewed the patient's lab results. Result diagrams: 03/01/22 18:00 03/01/22 18:00 Lab Results 03/01/22 03/01/22 03/01/22 Range/Units 18:00 18:00 18:00 WBC 2.51 L (4.8-10.8) K/uL RBC 2.48 L (4.7-6.1) M/uL Hgb 7.4 L (14.0-18.0) g/dL Hct 22.4 L (42-52) % MCV 90.3 (80-100) fL MCH 29.8 (25-34) pg MCHC 33.0 (32-36) g/dL RDW Std Deviation 54.5 H (36.4-46.3) fL RDW Coeff of Violetta 16.7 H (11.5-14.5) % Plt Count 91 L (130-400) K/uL MPV 12.0 H (7.4-10.4) fL Immature Gran % (Auto) 0.4 % Neut % (Auto) 63.7 % Lymph % (Auto) 23.9 % Jennings % (Auto) 4.0 % Eos % (Auto) 7.6 % Baso % (Auto) 0.4 % Neut # (Auto) 1.60 (1.4-6.5) K/uL Lymph # (Auto) 0.60 L (1.2-3.4) K/uL Jennings # (Auto) 0.10 L (0.11-0.59) K/uL Eos # (Auto) 0.19 (0-0.5) K/uL Baso # (Auto) 0.01 (0-0.2) K/uL Immature Gran # (Auto) 0.01 (0.00-0.02) K/uL Platelet Estimate Decreased L (Normal) RBC Morphology Unremarkable PT 11.9 (9.0-12.0) Seconds INR 1.1 (0.9-1.1) APTT 27.1 (21.0-31.0) Seconds PTT Ratio 1.0 Sodium 139 (136-145) mmol/L Potassium 4.3 (3.5-5.1) mmol/L Chloride 112 H (98-107) mmol/L Carbon Dioxide 20 L (21-32) mmol/L Anion Gap 7 (3-11) BUN 20 (6-23) mg/dl Creatinine 1.33 (0.6-1.4) mg/dl Est Cr Clr Drug Dosing 57.4 ml/min Est GFR ( Amer) 61.9 ml/min Est GFR (Non-Af Amer) 53.4 ml/min BUN/Creatinine Ratio 15.0 (10-20) Glucose 280 H (70-99(Fasting)) mg/dl Calcium 8.2 L (8.5-10.1) mg/dl Magnesium 1.7 (1.7-2.4) mg/dl Total Bilirubin 1.3 H (0.2-1.0) mg/dl AST 43 H (13-39) U/L ALT 23 (7-52) U/L Alkaline Phosphatase 180 H (34-104) U/L Troponin I < 0.03 (0-0.04) ng/ml Total Protein 6.3 (6.0-8.3) gm/dl Albumin 3.0 L (3.4-5.0) gm/dl Globulin 3.3 (2.5-4.0) gm/dl Albumin/Globulin Ratio 0.9 (0.9-2) Lipase 41 (11-82) U/L SARS-CoV-2, RNA, NAAT (NEGATIVE) 03/01/22 Range/Units 18:00 WBC (4.8-10.8) K/uL RBC (4.7-6.1) M/uL Hgb (14.0-18.0) g/dL Hct (42-52) % MCV (80-100) fL MCH (25-34) pg MCHC (32-36) g/dL RDW Std Deviation (36.4-46.3) fL RDW Coeff of Violetta (11.5-14.5) % Plt Count (130-400) K/uL MPV (7.4-10.4) fL Immature Gran % (Auto) % Neut % (Auto) % Lymph % (Auto) % Jennings % (Auto) % Eos % (Auto) % Baso % (Auto) % Neut # (Auto) (1.4-6.5) K/uL Lymph # (Auto) (1.2-3.4) K/uL Jennings # (Auto) (0.11-0.59) K/uL Eos # (Auto) (0-0.5) K/uL Baso # (Auto) (0-0.2) K/uL Immature Gran # (Auto) (0.00-0.02) K/uL Platelet Estimate (Normal) RBC Morphology PT (9.0-12.0) Seconds INR (0.9-1.1) APTT (21.0-31.0) Seconds PTT Ratio Sodium (136-145) mmol/L Potassium (3.5-5.1) mmol/L Chloride (98-107) mmol/L Carbon Dioxide (21-32) mmol/L Anion Gap (3-11) BUN (6-23) mg/dl Creatinine (0.6-1.4) mg/dl Est Cr Clr Drug Dosing ml/min Est GFR ( Amer) ml/min Est GFR (Non-Af Amer) ml/min BUN/Creatinine Ratio (10-20) Glucose (70-99(Fasting)) mg/dl Calcium (8.5-10.1) mg/dl Magnesium (1.7-2.4) mg/dl Total Bilirubin (0.2-1.0) mg/dl AST (13-39) U/L ALT (7-52) U/L Alkaline Phosphatase (34-104) U/L Troponin I (0-0.04) ng/ml Total Protein (6.0-8.3) gm/dl Albumin (3.4-5.0) gm/dl Globulin (2.5-4.0) gm/dl Albumin/Globulin Ratio (0.9-2) Lipase (11-82) U/L SARS-CoV-2, RNA, NAAT NEGATIVE (NEGATIVE) Administered Medications Allopurinol (Allopurinol 100 Mg Tab) 100 mg PO BID JODI Stop: 03/31/22 21:31 Last Admin: 03/01/22 22:17 Dose: 100 mg Documented by: [id number] Insulin Aspart (Insulin Aspart Per Unit) 0 units SC ACHS JODI Stop: 03/31/22 21:31 Last Admin: 03/01/22 22:19 Dose: 4 units Documented by: [id number] Cosigned by: [id number] Lactulose (Lactulose Syrup 10 Gm/15 Ml Btl 960 Ml) 10 gm PO BID JODI Stop: 03/31/22 21:31 Last Admin: 03/01/22 22:18 Dose: 10 gm Documented by: [id number] Rifaximin (Rifaximin 550 Mg Tablet) 550 mg PO BID JODI Stop: 03/31/22 21:31 Last Admin: 03/01/22 22:19 Dose: 550 mg Documented by: [id number] Discontinued Medications Acetaminophen (Acetaminophen 1000 Mg/100 Ml Iv) 1,000 mg IV NOW STA Stop: 03/01/22 18:28 Last Admin: 03/01/22 19:15 Dose: Not Given Documented by: [id number] Ondansetron HCl (Zofran) 8 mg in 54 mls @ 216 mls/hr IV NOW STA Stop: 03/01/22 18:41 Last Admin: 03/01/22 19:16 Dose: Not Given Documented by: [id number] Famotidine (Pepcid 20mg Iv Push) 20 mg in 5 mls @ 2.5 mls/min IV NOW STA Stop: 03/01/22 18:28 Last Admin: 03/01/22 19:15 Dose: Not Given Documented by: [id number] Morphine Sulfate (Morphine Sulfate 4 Mg/Ml 1 Ml Carp\\Vial) 4 mg IV NOW STA Stop: 03/01/22 18:28 Last Admin: 03/01/22 19:15 Dose: Not Given Documented by: [id number] Pantoprazole Sodium (Pantoprazole 40 Mg Tab) 40 mg PO NOW STA Stop: 03/01/22 18:28 Last Admin: 03/01/22 19:16 Dose: Not Given Documented by: [id number] Imaging Data Radiologist's Impression: Chest X-Ray 03/01/22 18:07 XR chest 1V portable HISTORY: 71 years-old Male Chest Pain acute atypical chest pain COMPARISON: Chest radiograph 03/26/2020 TECHNIQUE: Portable AP view the chest FINDINGS: The cardiac silhouette is upper limits of normal in size. There is no pneumothorax, large pleural effusion or overt pulmonary edema. Mild chronic interstitial coarsening of the lung bases. Degenerative changes of the shoulders and spine. IMPRESSION: No acute process. ACT 112: Negative or not required by law. The above report was generated using voice recognition software. It may contain grammatical, syntax or spelling errors. Electronically signed by: Yovany Gonzalez M.D. 03/01/2022 7:08 PM Discharge Plan Visit Data Chief Complaint: Cardiac Assessment ED Provider: Scott Huynh Discharge Problem: Precordial chest pain, Anemia, Rectal bleeding, Liver disease, Elevated troponin Patient Disposition: Admitted As Inpatient Condition: Fair Discharge Instructions Interventions: ED Discharge Assessment Last Done: 03/01/22 21:04
[2022-03-01] MEDS ORDERED: MoRPHine SULFATE 4 MG/ML 1 ML CARP\\VIAL IV STA (18:27)
[2022-03-01] MEDS ORDERED: FAMOTIDINE 20MG IV PUSH 20 MG/5 ML SYR IV STA (18:27)
[2022-03-01] MEDS ORDERED: PANTOprazole 40 MG TAB PO STA (18:27)
[2022-03-01] MEDS ORDERED: ACETAMINOPHEN 1000 MG/100 ML IV IV STA (18:27)
[2022-03-01 18:33] LABS: INR 1.1 (0.9-1.1); Partial Thromboplastin Time 27.1 Seconds (21.0-31.0); Prothrombin Time 11.9 Seconds (9.0-12.0)
[2022-03-01 18:42] LABS: Hematocrit (blood only) 22.4 % (42-52); Hemoglobin 7.4 g/dL (14.0-18.0); Mean Corpuscular Hemoglobin 29.8 pg (25-34); Mean Corpuscular Volume 90.3 fL (80-100); Platelet Count 91 K/uL (130-400); RDW Coefficient of Variation 16.7 % (11.5-14.5); RDW Standard Deviation 54.5 fL (36.4-46.3); Red Blood Count 2.48 M/uL (4.7-6.1); White Blood Count 2.51 K/uL (4.8-10.8)
[2022-03-01 18:44] LABS: Basophils # (auto) 0.01 K/uL (0-0.2); Basophils % (auto) 0.4 %; Eosinophils # (auto) 0.19 K/uL (0-0.5); Eosinophils % (auto) 7.6 %; Immature Granulocytes # (auto) 0.01 K/uL (0.00-0.02); Immature Granulocytes % (auto) 0.4 %; Lymphocytes % (auto) 23.9 %; Neutrophils % (auto) 63.7 %; Platelet Estimate Decreased (Normal); RBC Morphology Unremarkable
[2022-03-01 19:08] LABS: Troponin I < 0.03 ng/ml (0-0.04)
--- NOTE | 2022-03-01 19:10 | XRay Report ---
XR chest 1V portable HISTORY: 71 years-old Male Chest Pain acute atypical chest pain COMPARISON: Chest radiograph 03/26/2020 TECHNIQUE: Portable AP view the chest FINDINGS: The cardiac silhouette is upper limits of normal in size. There is no pneumothorax, large pleural eff usion or overt pulmonary edema. Mild chronic interstitial coarsening of the lung bases. Degenerative changes of the shoulders and spine. IMPRESSION: No acute process. ACT 112: Negative or not required by law. The above report was generated using voice recognition software. It may contain grammatical, syntax o r spelling errors. Electronically signed by: Yovany Gonzalez M.D. 03/01/2022 7:08 PM
[2022-03-01 19:19] LABS: Alanine Aminotransferase 23 U/L (7-52); Albumin Globulin Ratio 0.9 (0.9-2); Alkaline Phosphatase 180 U/L (34-104); Anion Gap 7 (3-11); Aspartate Aminotransferase 43 U/L (13-39); Bilirubin,Total 1.3 mg/dl (0.2-1.0); Blood Urea Nitrogen 20 mg/dl (6-23); Calcium 8.2 mg/dl (8.5-10.1); Carbon Dioxide 20 mmol/L (21-32); Chloride 112 mmol/L (98-107); Creatinine Clr Calc Pharmacy 57.4 ml/min; Est GFR (African American) 61.9 ml/min; Est GFR (Non-African American) 53.4 ml/min; Globulin 3.3 gm/dl (2.5-4.0); Glucose 280 mg/dl (70-99(Fasting)); Lipase 41 U/L (11-82); Magnesium 1.7 mg/dl (1.7-2.4); Potassium 4.3 mmol/L (3.5-5.1); Sodium 139 mmol/L (136-145); Total Protein 6.3 gm/dl (6.0-8.3)
[2022-03-01] MEDS ORDERED: SODIUM CHLORIDE 0.9% 250 ML IV PRN ×2 (19:42→21:32)
[2022-03-01] MEDS ORDERED: NITROGLYCERIN SL 0.4 MG/TAB TAB SL PRN (21:32)
[2022-03-01] MEDS ORDERED: GLUCAGON FOR INJ 1 MG VIAL IM PRN (22:00)
[2022-03-01] MEDS ORDERED: GLUCOSE 40% GEL 15 GM TUBE PO PRN (22:00)
[2022-03-01] MEDS ORDERED: CARBOHYDRATES FOR HYPOGLYCEMIA PO PRN (22:00)
[2022-03-01] MEDS ORDERED: GLUCOSE 10 TABS/TUBE PO PRN (22:00)
[2022-03-01] MEDS ORDERED: DEXTROSE 50% 50 ML SYRINGE IV PRN (22:00)
[2022-03-01] MEDS: allopurinoL 100 MG TAB PO SCH (22:17)
[2022-03-01] MEDS: LACTULOSE SYRUP 10 GM/15 ML BTL 960 ML PO SCH (22:18)
[2022-03-01] MEDS: INSULIN ASPART PER UNIT SC SCH (22:19)
[2022-03-01] MEDS: rifAXIMin 550 MG TABLET PO SCH (22:19)
--- NOTE | 2022-03-01 22:56 | History and Physical Report ---
DATE OF ADMISSION: 03/01/2022. CHIEF COMPLAINT: Chest pain. HISTORY OF PRESENT ILLNESS: This 71-year-old male with past medical history significant for type 2 diabetes, hyperlipidemia, GAVE, esophageal varices, portal vein thrombosis, history of prolonged QT, cirrhosis of liver, FOFANA, GERD, hepatocellular carcinoma, prostate cancer, chronic kidney disease stage III, compression fracture of L1 vertebra, thrombocytopenia, iron-deficiency anemia, pancytopenia, psoriasis, status post TIPS. The patient had completed radiation treatment in 04/2021 for prostrate cancer, evaluated by interventional radiologist for liver cancer. The patient is on transplant list and the patient had a liver-directed therapy bland embolization of the left hepatic lobe at [facility] done on 04/18/2021. The patient has history of anemia, on frequent blood transfusions, multiple iron infusions. The patient says a couple of weeks ago, he had blood transfusion in [facility]. He also had TIPS procedure done and the patient says since then he is not having much ascites. The patient recently had flexible sigmoidoscopy in first week of January; at that time, there was no bleeding found, but he was treated with argon plasma coagulation. The patient says on the night of flexible sigmoidoscopy, he started bleeding again. Since then, he is bleeding 3-4 days and a couple of days he does not bleed and again starts to bleed for 3-4 days. Since the last 3- 4 days, he is again having rectal bleeding. Today, he was helping his go to [facility]. He was carrying stuff, he overexerted himself and had chest pain in the middle of the chest, no radiation, severe in nature, nurse came out and helped him sit down and take rest; however, after resting for 10 minutes, it subsided. During the episode, he also felt dizzy and short of breath. He has chronic shortness of breath. Currently, chest pain free, but once in a while he gets some soreness in the middle of the chest. Denies any blurred visions, no earache, no runny nose, no sore throat, no cough. Appetite is good. No nausea, no vomiting, no abdominal pain. Normal bladder movements. Currently has some swelling in the legs. Ambulating okay otherwise. Sleeping okay. Currently, hemodynamically stable. ALLERGIES: No known drug allergies. PAST MEDICAL HISTORY: As mentioned above. PAST SURGICAL HISTORY: Multiple colonoscopies, EGDs, IR embolization, tonsillectomy, TIPS. MEDICATIONS: Currently on allopurinol 100 mg p.o. b.i.d., Celexa 10 mg p.o. a.m., finasteride 5 mg p.o. daily, lactulose as directed, omeprazole 40 mg p.o. a.m., rifaximin 550 mg p.o. b.i.d. FAMILY HISTORY: Significant for brother has alcoholism; father has alcoholism; brother has pancreatic cancer; father has colon cancer; daughter has cervical cancer; brother has heart disease; mother has lung cancer; father has epilepsy; daughter had Agent Motley exposure. SOCIAL HISTORY: . No smoking, no alcohol currently, no drug use. REVIEW OF SYSTEMS: As per HPI. Rest of review of systems is negative. PHYSICAL EXAMINATION: GENERAL: The patient is of moderate build, not in acute distress. VITAL SIGNS: Temperature 37.4, pulse 72, respiratory rate 21, blood pressure 142/63, oxygen 98% on room air. HEENT: Pupils equal, round and reactive to light. Oral mucosa moist. NECK: No JVD, no neck masses. CARDIOVASCULAR: S1 and S2 heard. Regular rate and rhythm. No murmur, no gallop. RESPIRATORY SYSTEM: Normal AP diameter. No accessory muscle use. No wheezing, no crackles. ABDOMEN: Soft, bowel sounds present, nontender, no distention. CENTRAL NERVOUS SYSTEM: Cranial nerves II-XII grossly intact, nonfocal. EXTREMITIES: Mild bilateral lower extremity edema present, no erythema seen. SKIN: Psoriatic lesions seen all over the body. Dry skin. LABORATORY DATA: WBC 2.5, hemoglobin 7.4, hematocrit 22.4, platelets 91. PT 11.9, INR 1.1, APTT 27.1. Sodium 139, potassium 4.3, chloride 112, CO2 of 20, BUN 20, creatinine 1.3, serum glucose 280, calcium 8.2, magnesium 1.7, total bilirubin 1.3, AST 43, ALT 23, alkaline phosphatase 180. Troponin I less than 0.03. Lipase 41. SARS-CoV-2 rapid test negative. IMAGING: Chest x-ray: No acute process. EKG: Normal sinus rhythm at a rate of 71. Nonspecific ST abnormalities. ASSESSMENT AND PLAN: This is a 71-year-old male who presents with chest pain. 1. Chest pain after exertion. Initial troponin is negative. EKG, no acute findings. We will follow serial enzymes, echocardiogram. Keep n.p.o. after midnight. Consult cardiology in the a.m. 2. Rectal bleed, ongoing issue. He had multiple blood transfusions and iron infusions. His hemoglobin is 7.4. One unit of packed red blood cells ordered by the Emergency Room, which will be continued. The patient had flexible sigmoidoscopy and argon plasma coagulation in first week of January.. We will consult gastrointestinal in the a.m. for further recommendations. Could be from diverticular bleed or could be from the radiation proctitis. We will follow hemoglobin and hematocrit. 3. Liver cirrhosis, nonalcoholic steatohepatitis, status post transjugular intrahepatic portosystemic shunt procedure, on lactulose and Xifaxan, not on any diuretics. We will follow the ammonia level in the a.m. Followup with GI 4. Pancytopenia secondary to liver cirrhosis. Follow up labs. 5. Liver cancer, status post left hepatic lobe bland embolization. Follow up with gastrointestinal. The patient seems to be on liver transplant list 6. History of prostate cancer, status post radiation treatment. Follow with urology. 7. History of gout, on allopurinol. 8. History of depression, on Celexa. 9. History of benign prostatic hyperplasia, on Proscar. 10. Diabetes, diet controlled. We will follow HbA1c level. Place on insulin sliding scale while the patient is in the hospital. 11. History of chronic kidney disease stage III, presents with a creatinine of 1.3. We will follow the laboratories. 12. History of psoriasis, currently not on any treatment. 13. Gastroesophageal reflux disease, on omeprazole. 14. History of prolonged QT. Follow the EKG. 15. Deep venous thrombosis prophylaxis, sequential compression devices for now. DISPOSITION: Closely monitor in the tele floor. Level 1, full code. Expect to discharge home and follow with family doctor. Job ID: [id number] [facility]
[2022-03-02 06:20] LABS: Hematocrit (blood only) 25.2 % (42-52); Hemoglobin 8.3 g/dL (14.0-18.0); Mean Corpuscular Hgb Conc 32.9 g/dL (32-36); RDW Coefficient of Variation 16.3 % (11.5-14.5); RDW Standard Deviation 53.5 fL (36.4-46.3); Red Blood Count 2.77 M/uL (4.7-6.1); White Blood Count 2.78 K/uL (4.8-10.8)
[2022-03-02 06:34] LABS: Mean Platelet Volume 10.6 fL (7.4-10.4); Platelet Count 77 K/uL (130-400)
[2022-03-02 06:38] LABS: BUN Creatinine Ratio 16.2 (10-20); Calcium 7.9 mg/dl (8.5-10.1); Est GFR (Non-African American) 66.5 ml/min; Magnesium 1.7 mg/dl (1.7-2.4); Potassium 3.9 mmol/L (3.5-5.1)
[2022-03-02 06:39] LABS: Estimated Average Glucose 131 mg/dl; Hemoglobin A1C 6.2 % (4.5-5.6)
[2022-03-02 06:45] LABS: Basophils # (auto) 0.01 K/uL (0-0.2); Basophils % (auto) 0.4 %; Eosinophils # (auto) 0.27 K/uL (0-0.5); Eosinophils % (auto) 9.7 %; Giant Platelets 1+; Immature Granulocytes # (auto) 0.03 K/uL (0.00-0.02); Immature Granulocytes % (auto) 1.1 %; Lymphocytes # (auto) 0.55 K/uL (1.2-3.4); Lymphocytes % (auto) 19.8 %; Monocytes # (auto) 0.27 K/uL (0.11-0.59); Monocytes % (auto) 9.7 %; Neutrophils # (auto) 1.65 K/uL (1.4-6.5); Neutrophils % (auto) 59.3 %
[2022-03-02] MEDS: INSULIN ASPART PER UNIT SC SCH ×4 (08:36→21:17)
[2022-03-02] MEDS: CITALOPRAM 20 MG TAB PO SCH (08:37)
[2022-03-02] MEDS: allopurinoL 100 MG TAB PO SCH ×2 (08:37→21:16)
[2022-03-02] MEDS: rifAXIMin 550 MG TABLET PO SCH ×2 (08:38→21:16)
[2022-03-02] MEDS: FINASTERIDE 5 MG TAB PO SCH (08:38)
[2022-03-02] MEDS: LACTULOSE SYRUP 10 GM/15 ML BTL 960 ML PO SCH ×2 (08:38→20:30)
[2022-03-02] MEDS: PANTOprazole 40 MG TAB PO SCH (08:38)
--- NOTE | 2022-03-02 09:13 | Gastrointestinal Consultation ---
Date of Consultation March 02, 2022 Assessment & Plan (1) Rectal bleedin71 year old male with history of T2DM, dyslipidemia, GAVE, prostate cancer, CKD-3, compression fracture of L1 vertebra, thrombocytopenia, iron- deficiency anemia, pancytopenia, psoriasis, cirrhosis esophageal varices, portal vein thrombosis, HCC s/p TIPS, intermittent rectal bleeding, chronic, about two days a week, without report of black stools, HGB stable Trend HGB Monitor output Transfuse output Plan for OP Colonoscopy No GI contraindication to diet Continued follow up with his regular hepatology providers as an OP Thank you for allowing us to participate in the care of this patient. Please call with any acute changes, questions or concerns. Please see addendum below with additional recommendation from my supervising physician. Supervising Physician Co-Signing Physician Notes This is a 71-year-old patient who was admitted with chest pain. Gastroenterology is consulted for an incidental complaint of hematochezia. Of note the patient does have a history of prior prostate cancer treated with radiation therapy. He underwent a recent colonoscopy with one of my partners and was found to have evidence of radiation proctitis. This was treated with argon plasma coagulation on February 01. The patient reports having bright red blood per rectum several times per week but no ongoing hematochezia today. Physical examination No obvious distress No abdominal tenderness Impression: Patient with a history of radiation proctitis last treated on February 01. Given the recurrent symptoms I would suggest use of a Canasa suppository nightly in addition to MiraLAX 17 g 1 time daily. The patient will be scheduled for repeat colonoscopy with Dr. March for retreatment of the region. Please call with any additional questions or concerns, GI to sign off History of Present Illness Reason for Consultation: rectal bleed Requesting Physician: Bailey Attending Physician: Carlos Avalos MD History of Present Illness 71 year old male with history of FOFANA cirrhosis with grade 2 EV and a gastroesophageal varix, with ascites, on diuretics following with [facility] hepatology admitted w/ chest pain - GI asked to evaluate for rectal bleeding. He notes this is chronic issue. Suggests he has 1-2 days a week with hematochezia, other days of the week, he has formed, brown stools. No black stools. Denies nausea/vomiting. No coffee ground emesis or hematemesis. CTAP 2021: 1. Mild rectal wall thickening may be secondary to partial distention versus a nonspecific proctitis. 2. Colonic diverticulosis without acute diverticulitis. 3. Cirrhotic liver disease with stigmata of portal venous hypertension including splenomegaly with abdominal varices and small volume of abdominopelvic ascites. 4. Prostamegaly with evidence of chronic bladder outlet obstruction. 5. Additional findings as above. Allergies Allergy/AdvReac Type Severity Reaction Status Date / Time No Known Allergies Allergy Mild Verified 03/01/22 19:47 Home Medications Medication Instructions Recorded Confirmed Type citalopram 10 mg tablet (Celexa) 10 mg PO QAM 03/24/20 03/01/22 History lactulose 10 gram/15 mL oral See Rx Instructions .ROUTE .COMPLEX 03/24/20 03/01/22 History solution omeprazole 40 mg capsule,delayed 40 mg PO QAM 03/24/20 03/01/22 History release allopurinol 100 mg tablet 100 mg PO BID 05/16/20 03/01/22 History rifaximin 550 mg tablet (Xifaxan) 550 mg PO BID 12/08/20 03/01/22 History finasteride 5 mg tablet 5 mg PO DAILY 11/03/21 03/01/22 History Patient History Medical History Anemia Anemia 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 CKD (chronic kidney disease) stage 3, GFR 30-59 ml/min DVT prophylaxis Encounter for pre-operative examination Encounter for pre-operative examination Esophageal varices Esophageal varices with bleeding GAVE (gastric antral vascular ectasia) GERD (gastroesophageal reflux disease) Gout NO ISSUES CURRENTLY History of panic attacks History of recent blood transfusion 07/13/2020 Hypertension Low hemoglobin reason for scheduled egd/colonoscopy Psoriasis on Humira [id number] Psoriasis Shortness of breath Symptomatic anemia T2DM (type 2 diabetes mellitus) Upper GI bleed Surgical History History of abdominal paracentesis Every 2 weeks History of colonoscopy with polypectomy History of esophagogastroduodenoscopy (EGD) last 10/25 revealed grade 2 esophageal varices, grade 1 gastric varices STABLE History of prostate biopsy History of tonsillectomy and adenoidectomy S/P TIPS (transjugular intrahepatic portosystemic shunt) Family History Father , "3/4 liver gone due to drinking" Colorectal cancer, Onset Age: 63 Mother Lung cancer Daughter Cancer cervical and thyroid cancers Ovarian cancer Other No family history of adverse response to anesthesia 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 Smoking Status: Never smoker Second Hand Exposure: Yes; Hx Alcohol Use: No Hx Substance Use: No Preferred Language: Latvian Communication Ability: Effective Visual Impairment: No Limitations Hearing Ability: Normal [employer] 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 Required: No Beliefs That Will Affect Care: None marital status: Current Living Situation: Spouse 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 How many Children do You have: 6 How many Children do You have Comment: one , eldest daughter in her sleep from seizure disorder Feels Safe at Home: Yes Childhood Exposure to Second-Hand Smoke: Yes Diet Comment: "I watch my sugar, average fasting is 140 mg/dl" caffeine: Yes (cola, sugar free, decaf) during the past year weight has: remained stable Dental Care, Regularly: No Physical Activity Frequency: Does not Exercise Seatbelt Use: always Sunscreen Use: Yes Assistive Devices: None Review of Systems Review of Systems: All systems reviewed & are unremarkable except as noted in HPI & below Physical Exam Constitutional: WD/WN, vitals as above Neck: trachea midline, no thyromegaly Respiratory: normal respiratory effort, lungs clear to auscultation Cardiovascular: RRR, no murmur, no edema Gastrointestinal (Abdomen): normal bowel sounds, soft, nontender, no hepatosplenomegaly Skin: no rashes, warm and dry Results & Data ([facility]) Vital Signs (Past 12 Hours) Vital Signs Temp Pulse Pulse Resp BP BP Pulse Ox 03/02/22 07:36 36.7 C 58 L 18 119/58 L 97 03/02/22 03:17 36.4 C L 60 18 138/65 98 03/02/22 01:53 36.7 C 62 20 161/72 H 96 03/02/22 00:58 36.7 C 62 20 161/72 H 96 03/02/22 00:57 36.6 C 60 18 151/68 H 96 03/02/22 00:29 62 03/02/22 00:13 36.9 C 59 L 18 136/63 96 03/02/22 00:11 97 03/02/22 00:09 36.8 C 62 18 144/63 H 03/01/22 23:52 36.8 C 64 18 148/66 H 96 03/01/22 23:35 64 03/01/22 21:33 37.3 C 64 18 158/70 H 99 Laboratory Results 03/02/22 03/02/22 03/02/22 Range/Units 08:51 07:35 05:31 WBC (4.8-10.8) K/uL RBC (4.7-6.1) M/uL Hgb (14.0-18.0) g/dL Hct (42-52) % MCV (80-100) fL MCH (25-34) pg MCHC (32-36) g/dL RDW Std Deviation (36.4-46.3) fL RDW Coeff of Violetta (11.5-14.5) % Plt Count (130-400) K/uL MPV (7.4-10.4) fL Immature Gran % (Auto) % Neut % (Auto) % Lymph % (Auto) % [place] % (Auto) % Eos % (Auto) % Baso % (Auto) % Neut # (Auto) (1.4-6.5) K/uL Lymph # (Auto) (1.2-3.4) K/uL [place] # (Auto) (0.11-0.59) K/uL Eos # (Auto) (0-0.5) K/uL Baso # (Auto) (0-0.2) K/uL Immature Gran # (Auto) (0.00-0.02) K/uL Platelet Estimate (Normal) Giant Platelets RBC Morphology PT (9.0-12.0) Seconds INR (0.9-1.1) APTT (21.0-31.0) Seconds PTT Ratio Sodium (136-145) mmol/L Potassium (3.5-5.1) mmol/L Chloride (98-107) mmol/L Carbon Dioxide (21-32) mmol/L Anion Gap (3-11) BUN (6-23) mg/dl Creatinine (0.6-1.4) mg/dl Est Cr Clr Drug Dosing ml/min Est GFR ( Amer) ml/min Est GFR (Non-Af Amer) ml/min BUN/Creatinine Ratio (10-20) Glucose (70-99(Fasting)) mg/dl POC Glucose 197 H (70-99) mg/dl Estimat Average Glucose 131 mg/dl Hemoglobin A1c 6.2 H (4.5-5.6) % Calcium (8.5-10.1) mg/dl Magnesium (1.7-2.4) mg/dl Total Bilirubin (0.2-1.0) mg/dl AST (13-39) U/L ALT (7-52) U/L Alkaline Phosphatase (34-104) U/L Ammonia (18-72) umol/L Troponin I Pending (0-0.04) ng/ml Total Protein (6.0-8.3) gm/dl Albumin (3.4-5.0) gm/dl Globulin (2.5-4.0) gm/dl Albumin/Globulin Ratio (0.9-2) Lipase (11-82) U/L SARS-CoV-2, RNA, NAAT (NEGATIVE) Blood Type Antibody Screen Crossmatch 03/02/22 03/02/22 03/02/22 Range/Units 05:31 05:31 05:31 WBC 2.78 L (4.8-10.8) K/uL RBC 2.77 L (4.7-6.1) M/uL Hgb 8.3 L (14.0-18.0) g/dL Hct 25.2 L (42-52) % MCV 91.0 (80-100) fL MCH 30.0 (25-34) pg MCHC 32.9 (32-36) g/dL RDW Std Deviation 53.5 H (36.4-46.3) fL RDW Coeff of Violetta 16.3 H (11.5-14.5) % Plt Count 77 L (130-400) K/uL MPV 10.6 H (7.4-10.4) fL Immature Gran % (Auto) 1.1 % Neut % (Auto) 59.3 % Lymph % (Auto) 19.8 % [place] % (Auto) 9.7 % Eos % (Auto) 9.7 % Baso % (Auto) 0.4 % Neut # (Auto) 1.65 (1.4-6.5) K/uL Lymph # (Auto) 0.55 L (1.2-3.4) K/uL [place] # (Auto) 0.27 (0.11-0.59) K/uL Eos # (Auto) 0.27 (0-0.5) K/uL Baso # (Auto) 0.01 (0-0.2) K/uL Immature Gran # (Auto) 0.03 H (0.00-0.02) K/uL Platelet Estimate (Normal) Giant Platelets 1+ RBC Morphology PT (9.0-12.0) Seconds INR (0.9-1.1) APTT (21.0-31.0) Seconds PTT Ratio Sodium 140 (136-145) mmol/L Potassium 3.9 (3.5-5.1) mmol/L Chloride 114 H (98-107) mmol/L Carbon Dioxide 21 (21-32) mmol/L Anion Gap 5 (3-11) BUN 18 (6-23) mg/dl Creatinine 1.11 (0.6-1.4) mg/dl Est Cr Clr Drug Dosing 63.0 ml/min Est GFR ( Amer) 77.0 ml/min Est GFR (Non-Af Amer) 66.5 ml/min BUN/Creatinine Ratio 16.2 (10-20) Glucose 184 H (70-99(Fasting)) mg/dl POC Glucose (70-99) mg/dl Estimat Average Glucose mg/dl Hemoglobin A1c (4.5-5.6) % Calcium 7.9 L (8.5-10.1) mg/dl Magnesium 1.7 (1.7-2.4) mg/dl Total Bilirubin (0.2-1.0) mg/dl AST (13-39) U/L ALT (7-52) U/L Alkaline Phosphatase (34-104) U/L Ammonia 63.0 (18-72) umol/L Troponin I (0-0.04) ng/ml Total Protein (6.0-8.3) gm/dl Albumin (3.4-5.0) gm/dl Globulin (2.5-4.0) gm/dl Albumin/Globulin Ratio (0.9-2) Lipase (11-82) U/L SARS-CoV-2, RNA, NAAT (NEGATIVE) Blood Type Antibody Screen Crossmatch 03/01/22 03/01/22 03/01/22 Range/Units 21:45 20:40 20:40 WBC (4.8-10.8) K/uL RBC (4.7-6.1) M/uL Hgb (14.0-18.0) g/dL Hct (42-52) % MCV (80-100) fL MCH (25-34) pg MCHC (32-36) g/dL RDW Std Deviation (36.4-46.3) fL RDW Coeff of Violetta (11.5-14.5) % Plt Count (130-400) K/uL MPV (7.4-10.4) fL Immature Gran % (Auto) % Neut % (Auto) % Lymph % (Auto) % [place] % (Auto) % Eos % (Auto) % Baso % (Auto) % Neut # (Auto) (1.4-6.5) K/uL Lymph # (Auto) (1.2-3.4) K/uL [place] # (Auto) (0.11-0.59) K/uL Eos # (Auto) (0-0.5) K/uL Baso # (Auto) (0-0.2) K/uL Immature Gran # (Auto) (0.00-0.02) K/uL Platelet Estimate (Normal) Giant Platelets RBC Morphology PT (9.0-12.0) Seconds INR (0.9-1.1) APTT (21.0-31.0) Seconds PTT Ratio Sodium (136-145) mmol/L Potassium (3.5-5.1) mmol/L Chloride (98-107) mmol/L Carbon Dioxide (21-32) mmol/L Anion Gap (3-11) BUN (6-23) mg/dl Creatinine (0.6-1.4) mg/dl Est Cr Clr Drug Dosing ml/min Est GFR ( Amer) ml/min Est GFR (Non-Af Amer) ml/min BUN/Creatinine Ratio (10-20) Glucose (70-99(Fasting)) mg/dl POC Glucose 255 H (70-99) mg/dl Estimat Average Glucose mg/dl Hemoglobin A1c (4.5-5.6) % Calcium (8.5-10.1) mg/dl Magnesium (1.7-2.4) mg/dl Total Bilirubin (0.2-1.0) mg/dl AST (13-39) U/L ALT (7-52) U/L Alkaline Phosphatase (34-104) U/L Ammonia (18-72) umol/L Troponin I 0.07 H* (0-0.04) ng/ml Total Protein (6.0-8.3) gm/dl Albumin (3.4-5.0) gm/dl Globulin (2.5-4.0) gm/dl Albumin/Globulin Ratio (0.9-2) Lipase (11-82) U/L SARS-CoV-2, RNA, NAAT (NEGATIVE) Blood Type O Positive Antibody Screen NEGATIVE Crossmatch See Detail 03/01/22 03/01/22 03/01/22 Range/Units 18:00 18:00 18:00 WBC (4.8-10.8) K/uL RBC (4.7-6.1) M/uL Hgb (14.0-18.0) g/dL Hct (42-52) % MCV (80-100) fL MCH (25-34) pg MCHC (32-36) g/dL RDW Std Deviation (36.4-46.3) fL RDW Coeff of Violetta (11.5-14.5) % Plt Count (130-400) K/uL MPV (7.4-10.4) fL Immature Gran % (Auto) % Neut % (Auto) % Lymph % (Auto) % [place] % (Auto) % Eos % (Auto) % Baso % (Auto) % Neut # (Auto) (1.4-6.5) K/uL Lymph # (Auto) (1.2-3.4) K/uL [place] # (Auto) (0.11-0.59) K/uL Eos # (Auto) (0-0.5) K/uL Baso # (Auto) (0-0.2) K/uL Immature Gran # (Auto) (0.00-0.02) K/uL Platelet Estimate (Normal) Giant Platelets RBC Morphology PT 11.9 (9.0-12.0) Seconds INR 1.1 (0.9-1.1) APTT 27.1 (21.0-31.0) Seconds PTT Ratio 1.0 Sodium 139 (136-145) mmol/L Potassium 4.3 (3.5-5.1) mmol/L Chloride 112 H (98-107) mmol/L Carbon Dioxide 20 L (21-32) mmol/L Anion Gap 7 (3-11) BUN 20 (6-23) mg/dl Creatinine 1.33 (0.6-1.4) mg/dl Est Cr Clr Drug Dosing 57.4 ml/min Est GFR ( Amer) 61.9 ml/min Est GFR (Non-Af Amer) 53.4 ml/min BUN/Creatinine Ratio 15.0 (10-20) Glucose 280 H (70-99(Fasting)) mg/dl POC Glucose (70-99) mg/dl Estimat Average Glucose mg/dl Hemoglobin A1c (4.5-5.6) % Calcium 8.2 L (8.5-10.1) mg/dl Magnesium 1.7 (1.7-2.4) mg/dl Total Bilirubin 1.3 H (0.2-1.0) mg/dl AST 43 H (13-39) U/L ALT 23 (7-52) U/L Alkaline Phosphatase 180 H (34-104) U/L Ammonia (18-72) umol/L Troponin I < 0.03 (0-0.04) ng/ml Total Protein 6.3 (6.0-8.3) gm/dl Albumin 3.0 L (3.4-5.0) gm/dl Globulin 3.3 (2.5-4.0) gm/dl Albumin/Globulin Ratio 0.9 (0.9-2) Lipase 41 (11-82) U/L SARS-CoV-2, RNA, NAAT NEGATIVE (NEGATIVE) Blood Type Antibody Screen Crossmatch 03/01/22 Range/Units 18:00 WBC 2.51 L (4.8-10.8) K/uL RBC 2.48 L (4.7-6.1) M/uL Hgb 7.4 L (14.0-18.0) g/dL Hct 22.4 L (42-52) % MCV 90.3 (80-100) fL MCH 29.8 (25-34) pg MCHC 33.0 (32-36) g/dL RDW Std Deviation 54.5 H (36.4-46.3) fL RDW Coeff of Violetta 16.7 H (11.5-14.5) % Plt Count 91 L (130-400) K/uL MPV 12.0 H (7.4-10.4) fL Immature Gran % (Auto) 0.4 % Neut % (Auto) 63.7 % Lymph % (Auto) 23.9 % [place] % (Auto) 4.0 % Eos % (Auto) 7.6 % Baso % (Auto) 0.4 % Neut # (Auto) 1.60 (1.4-6.5) K/uL Lymph # (Auto) 0.60 L (1.2-3.4) K/uL [place] # (Auto) 0.10 L (0.11-0.59) K/uL Eos # (Auto) 0.19 (0-0.5) K/uL Baso # (Auto) 0.01 (0-0.2) K/uL Immature Gran # (Auto) 0.01 (0.00-0.02) K/uL Platelet Estimate Decreased L (Normal) Giant Platelets RBC Morphology Unremarkable PT (9.0-12.0) Seconds INR (0.9-1.1) APTT (21.0-31.0) Seconds PTT Ratio Sodium (136-145) mmol/L Potassium (3.5-5.1) mmol/L Chloride (98-107) mmol/L Carbon Dioxide (21-32) mmol/L Anion Gap (3-11) BUN (6-23) mg/dl Creatinine (0.6-1.4) mg/dl Est Cr Clr Drug Dosing ml/min Est GFR ( Amer) ml/min Est GFR (Non-Af Amer) ml/min BUN/Creatinine Ratio (10-20) Glucose (70-99(Fasting)) mg/dl POC Glucose (70-99) mg/dl Estimat Average Glucose mg/dl Hemoglobin A1c (4.5-5.6) % Calcium (8.5-10.1) mg/dl Magnesium (1.7-2.4) mg/dl Total Bilirubin (0.2-1.0) mg/dl AST (13-39) U/L ALT (7-52) U/L Alkaline Phosphatase (34-104) U/L Ammonia (18-72) umol/L Troponin I (0-0.04) ng/ml Total Protein (6.0-8.3) gm/dl Albumin (3.4-5.0) gm/dl Globulin (2.5-4.0) gm/dl Albumin/Globulin Ratio (0.9-2) Lipase (11-82) U/L SARS-CoV-2, RNA, NAAT (NEGATIVE) Blood Type Antibody Screen Crossmatch
[2022-03-02] MEDS ORDERED: Nursing to Pharmacy Communication SCH ×2 (09:15→11:00)
--- NOTE | 2022-03-02 09:31 | Cardiology Consultation ---
Date of Consultation March 02, 2022 Assessment & Plan (1) Chest pain: (2) Anemia: (3) Elevated troponin: (4) Acute lower GI bleeding: (5) Liver disease: Patient admitted with episode of chest pain. Found to have severe anemia, hbg of 7.4. Initial EKG with mild ST depression, improved on repeat. Initial troponin minimally elevated at 0.07, Repeat normal. He remains chest pain free. Echo results are pending. He had negative nuclear stress testing in Dec 2021. He reports ongoing issues with GI/rectal bleeding, with history of recent prostate CA and radiation. Recommend GI evaluation. Symptoms of chest pain, likely due to symptomatic anemia, demand ischemic event. No evidence of ACS. Would treat anemia. No further cardiac testing is recommended at this time. Case discussed with Dr. Moreno. Supervising Physician Co-Signing Physician Notes Patient seen and examined at the bedside. Admitted with atypical chest discomfort in his subxiphoid, epigastric region. Significant hemoglobin with active rectal bleeding noted on admission. Troponin minimally elevated with normal repeat. Echocardiogram without regional wall motion abnormality. Patient chest pain-free since admission. Currently resting comfortably. Offers no concerns/complaints. PE: Vss. Gen: NAD, AAO x3. Heart: Regular rhythm. Normal S1-S2. No murmur. Lungs: Clear bilateral, no rales rhonchi or wheeze. Abdomen: Soft, nontender, no rebound or guarding. Extremities: No edema. A/P: Agree with above PA-C history, physical exam, assessment and plan. Patient symptoms not indicative of acute coronary syndrome. Minimally elevated troponin secondary to symptomatic anemia. He is not a candidate for antiplatelet or anticoagulation at this time due to lower GI bleeding. Results of recent Lexiscan nuclear stress test reviewed. No evidence of inducible ischemia. No further cardiac testing at this time. Thank you for allowing us to participate in the care of your patient. History of Present Illness Reason for Consultation: Chest pain Requesting Physician: Dr. Alba Attending Physician: Dr. Moreno History of Present Illness Patient is a 71 year old male, recently evaluated by [facility] cardiology as outpatient (Dr. Gabriel/JEFF Levine) for evaluation of atypical chest pain. He underwent nuclear stress testing which was negative for inducible ischemia in Dec 2021. History includes: Past medical history: 1. 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 History of syncope instead the setting of markedly elevated ammonia level due to transient discontinuation of lactulose while traveling. 3. Type 2 diabetes 4. Chronic anemia, thrombocytopenia 5. CKD stage IIIA 6. Hepatocellular carcinoma status post IR embolization 04/18/2021, recurrent lesions undergoing mass embolization in January 2022. Repeat planned for 3 months 7. Prostate carcinoma status post radiation on chronic Lupron suppression 8. History of atypical chest pain 9. Negative nuclear stress 12/27/2021 10. Anemia, with frequent iron infusions and frequent blood transfusions Patient reports he was carrying heavy suitcase into [facility] yesterday to see his and developed substernal chest pain, lasting about 10 minutes. No radiation or associated symptoms. He mentioned his symptoms to nursing staff at [facility] and EMS was summoned. Upon arrival to ER, EKG demonstrated NSR with mild ST depression in V3-V4, not overtly changed from prior outpatient EKG's. Initial troponin at 0.07. repeat undetectable. Repeat EKG's without acute changes. During ER evaluation, patient also admitted worsening GI/rectal bleeding over the last few weeks. Hbg on admission 7.4. He received one unit PRBC's, hbg improving this morning. Chest xray unremarkable. At time of consult, patient resting in bed comfortably. No recurrent chest pain or dyspnea. Repeat troponin this morning undetectable. He is concerned with ongoing GI/rectal bleeding. Low hbg on admission. GI consulted. Voices no acute cardiac complaints this morning. Allergies Allergy/AdvReac Type Severity Reaction Status Date / Time No Known Allergies Allergy Mild Verified 03/01/22 19:47 Home Medications Medication Instructions Recorded Confirmed Type citalopram 10 mg tablet (Celexa) 10 mg PO QAM 03/24/20 03/01/22 History lactulose 10 gram/15 mL oral See Rx Instructions .ROUTE .COMPLEX 03/24/20 03/01/22 History solution omeprazole 40 mg capsule,delayed 40 mg PO QAM 03/24/20 03/01/22 History release allopurinol 100 mg tablet 100 mg PO BID 05/16/20 03/01/22 History rifaximin 550 mg tablet (Xifaxan) 550 mg PO BID 12/08/20 03/01/22 History finasteride 5 mg tablet 5 mg PO DAILY 11/03/21 03/01/22 History Patient History Medical History Anemia Anemia 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 CKD (chronic kidney disease) stage 3, GFR 30-59 ml/min DVT prophylaxis Encounter for pre-operative examination Encounter for pre-operative examination Esophageal varices Esophageal varices with bleeding GAVE (gastric antral vascular ectasia) GERD (gastroesophageal reflux disease) Gout NO ISSUES CURRENTLY History of panic attacks History of recent blood transfusion 07/13/2020 Hypertension Low hemoglobin reason for scheduled egd/colonoscopy Psoriasis on Humira [id number] Psoriasis Shortness of breath Symptomatic anemia T2DM (type 2 diabetes mellitus) Upper GI bleed Surgical History History of abdominal paracentesis Every 2 weeks History of colonoscopy with polypectomy History of esophagogastroduodenoscopy (EGD) last 10/25 revealed grade 2 esophageal varices, grade 1 gastric varices STABLE History of prostate biopsy History of tonsillectomy and adenoidectomy S/P TIPS (transjugular intrahepatic portosystemic shunt) Family History Father , "3/4 liver gone due to drinking" Colorectal cancer, Onset Age: 63 Mother Lung cancer Daughter Cancer cervical and thyroid cancers Ovarian cancer Other No family history of adverse response to anesthesia 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 Smoking Status: Never smoker Second Hand Exposure: Yes; Hx Alcohol Use: No Hx Substance Use: No Preferred Language: Slovak Communication Ability: Effective Visual Impairment: No Limitations Hearing Ability: Normal Wood Die Maker Required: No Beliefs That Will Affect Care: None marital status: Current Living Situation: Spouse 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 How many Children do You have: 6 How many Children do You have Comment: one , eldest daughter in her sleep from seizure disorder Feels Safe at Home: Yes Childhood Exposure to Second-Hand Smoke: Yes Diet Comment: "I watch my sugar, average fasting is 140 mg/dl" caffeine: Yes (cola, sugar free, decaf) during the past year weight has: remained stable Dental Care, Regularly: No Physical Activity Frequency: Does not Exercise Seatbelt Use: always Sunscreen Use: Yes Assistive Devices: None Review of Systems Review of Systems: All systems reviewed & are unremarkable except as noted in HPI & below Physical Exam Constitutional: WD/WN, vitals as above Respiratory: normal respiratory effort, lungs clear to auscultation Cardiovascular: RRR, no murmur, no edema Gastrointestinal (Abdomen): normal bowel sounds, soft, nontender, no hepatosplenomegaly Neurologic: PERRL, EOMI, accommodation nl, no face palsy, no dysarthria Psychiatric: A+Ox3, euthymic affect Results & Data ([facility]) Vital Signs (Past 12 Hours) Vital Signs Temp Pulse Pulse Resp BP BP Pulse Ox 03/02/22 09:20 60 03/02/22 07:36 36.7 C 58 L 18 119/58 L 97 03/02/22 03:17 36.4 C L 60 18 138/65 98 03/02/22 01:53 36.7 C 62 20 161/72 H 96 03/02/22 00:58 36.7 C 62 20 161/72 H 96 03/02/22 00:57 36.6 C 60 18 151/68 H 96 03/02/22 00:29 62 03/02/22 00:13 36.9 C 59 L 18 136/63 96 03/02/22 00:11 97 03/02/22 00:09 36.8 C 62 18 144/63 H 03/01/22 23:52 36.8 C 64 18 148/66 H 96 03/01/22 23:35 64 03/01/22 21:33 37.3 C 64 18 158/70 H 99 Laboratory Results 03/02/22 03/02/22 03/02/22 Range/Units 08:51 07:35 05:31 WBC (4.8-10.8) K/uL RBC (4.7-6.1) M/uL Hgb (14.0-18.0) g/dL Hct (42-52) % MCV (80-100) fL MCH (25-34) pg MCHC (32-36) g/dL RDW Std Deviation (36.4-46.3) fL RDW Coeff of Violetta (11.5-14.5) % Plt Count (130-400) K/uL MPV (7.4-10.4) fL Immature Gran % (Auto) % Neut % (Auto) % Lymph % (Auto) % Garrard % (Auto) % Eos % (Auto) % Baso % (Auto) % Neut # (Auto) (1.4-6.5) K/uL Lymph # (Auto) (1.2-3.4) K/uL Garrard # (Auto) (0.11-0.59) K/uL Eos # (Auto) (0-0.5) K/uL Baso # (Auto) (0-0.2) K/uL Immature Gran # (Auto) (0.00-0.02) K/uL Platelet Estimate (Normal) Giant Platelets RBC Morphology PT (9.0-12.0) Seconds INR (0.9-1.1) APTT (21.0-31.0) Seconds PTT Ratio Sodium (136-145) mmol/L Potassium (3.5-5.1) mmol/L Chloride (98-107) mmol/L Carbon Dioxide (21-32) mmol/L Anion Gap (3-11) BUN (6-23) mg/dl Creatinine (0.6-1.4) mg/dl Est Cr Clr Drug Dosing ml/min Est GFR ( Amer) ml/min Est GFR (Non-Af Amer) ml/min BUN/Creatinine Ratio (10-20) Glucose (70-99(Fasting)) mg/dl POC Glucose 197 H (70-99) mg/dl Estimat Average Glucose 131 mg/dl Hemoglobin A1c 6.2 H (4.5-5.6) % Calcium (8.5-10.1) mg/dl Magnesium (1.7-2.4) mg/dl Total Bilirubin (0.2-1.0) mg/dl AST (13-39) U/L ALT (7-52) U/L Alkaline Phosphatase (34-104) U/L Ammonia (18-72) umol/L Troponin I Pending (0-0.04) ng/ml Total Protein (6.0-8.3) gm/dl Albumin (3.4-5.0) gm/dl Globulin (2.5-4.0) gm/dl Albumin/Globulin Ratio (0.9-2) Lipase (11-82) U/L SARS-CoV-2, RNA, NAAT (NEGATIVE) Blood Type Antibody Screen Crossmatch 03/02/22 03/02/22 03/02/22 Range/Units 05:31 05:31 05:31 WBC 2.78 L (4.8-10.8) K/uL RBC 2.77 L (4.7-6.1) M/uL Hgb 8.3 L (14.0-18.0) g/dL Hct 25.2 L (42-52) % MCV 91.0 (80-100) fL MCH 30.0 (25-34) pg MCHC 32.9 (32-36) g/dL RDW Std Deviation 53.5 H (36.4-46.3) fL RDW Coeff of Violetta 16.3 H (11.5-14.5) % Plt Count 77 L (130-400) K/uL MPV 10.6 H (7.4-10.4) fL Immature Gran % (Auto) 1.1 % Neut % (Auto) 59.3 % Lymph % (Auto) 19.8 % Garrard % (Auto) 9.7 % Eos % (Auto) 9.7 % Baso % (Auto) 0.4 % Neut # (Auto) 1.65 (1.4-6.5) K/uL Lymph # (Auto) 0.55 L (1.2-3.4) K/uL Garrard # (Auto) 0.27 (0.11-0.59) K/uL Eos # (Auto) 0.27 (0-0.5) K/uL Baso # (Auto) 0.01 (0-0.2) K/uL Immature Gran # (Auto) 0.03 H (0.00-0.02) K/uL Platelet Estimate (Normal) Giant Platelets 1+ RBC Morphology PT (9.0-12.0) Seconds INR (0.9-1.1) APTT (21.0-31.0) Seconds PTT Ratio Sodium 140 (136-145) mmol/L Potassium 3.9 (3.5-5.1) mmol/L Chloride 114 H (98-107) mmol/L Carbon Dioxide 21 (21-32) mmol/L Anion Gap 5 (3-11) BUN 18 (6-23) mg/dl Creatinine 1.11 (0.6-1.4) mg/dl Est Cr Clr Drug Dosing 63.0 ml/min Est GFR ( Amer) 77.0 ml/min Est GFR (Non-Af Amer) 66.5 ml/min BUN/Creatinine Ratio 16.2 (10-20) Glucose 184 H (70-99(Fasting)) mg/dl POC Glucose (70-99) mg/dl Estimat Average Glucose mg/dl Hemoglobin A1c (4.5-5.6) % Calcium 7.9 L (8.5-10.1) mg/dl Magnesium 1.7 (1.7-2.4) mg/dl Total Bilirubin (0.2-1.0) mg/dl AST (13-39) U/L ALT (7-52) U/L Alkaline Phosphatase (34-104) U/L Ammonia 63.0 (18-72) umol/L Troponin I (0-0.04) ng/ml Total Protein (6.0-8.3) gm/dl Albumin (3.4-5.0) gm/dl Globulin (2.5-4.0) gm/dl Albumin/Globulin Ratio (0.9-2) Lipase (11-82) U/L SARS-CoV-2, RNA, NAAT (NEGATIVE) Blood Type Antibody Screen Crossmatch 03/01/22 03/01/22 03/01/22 Range/Units 21:45 20:40 20:40 WBC (4.8-10.8) K/uL RBC (4.7-6.1) M/uL Hgb (14.0-18.0) g/dL Hct (42-52) % MCV (80-100) fL MCH (25-34) pg MCHC (32-36) g/dL RDW Std Deviation (36.4-46.3) fL RDW Coeff of Violetta (11.5-14.5) % Plt Count (130-400) K/uL MPV (7.4-10.4) fL Immature Gran % (Auto) % Neut % (Auto) % Lymph % (Auto) % Garrard % (Auto) % Eos % (Auto) % Baso % (Auto) % Neut # (Auto) (1.4-6.5) K/uL Lymph # (Auto) (1.2-3.4) K/uL Garrard # (Auto) (0.11-0.59) K/uL Eos # (Auto) (0-0.5) K/uL Baso # (Auto) (0-0.2) K/uL Immature Gran # (Auto) (0.00-0.02) K/uL Platelet Estimate (Normal) Giant Platelets RBC Morphology PT (9.0-12.0) Seconds INR (0.9-1.1) APTT (21.0-31.0) Seconds PTT Ratio Sodium (136-145) mmol/L Potassium (3.5-5.1) mmol/L Chloride (98-107) mmol/L Carbon Dioxide (21-32) mmol/L Anion Gap (3-11) BUN (6-23) mg/dl Creatinine (0.6-1.4) mg/dl Est Cr Clr Drug Dosing ml/min Est GFR ( Amer) ml/min Est GFR (Non-Af Amer) ml/min BUN/Creatinine Ratio (10-20) Glucose (70-99(Fasting)) mg/dl POC Glucose 255 H (70-99) mg/dl Estimat Average Glucose mg/dl Hemoglobin A1c (4.5-5.6) % Calcium (8.5-10.1) mg/dl Magnesium (1.7-2.4) mg/dl Total Bilirubin (0.2-1.0) mg/dl AST (13-39) U/L ALT (7-52) U/L Alkaline Phosphatase (34-104) U/L Ammonia (18-72) umol/L Troponin I 0.07 H* (0-0.04) ng/ml Total Protein (6.0-8.3) gm/dl Albumin (3.4-5.0) gm/dl Globulin (2.5-4.0) gm/dl Albumin/Globulin Ratio (0.9-2) Lipase (11-82) U/L SARS-CoV-2, RNA, NAAT (NEGATIVE) Blood Type O Positive Antibody Screen NEGATIVE Crossmatch See Detail 03/01/22 03/01/22 03/01/22 Range/Units 18:00 18:00 18:00 WBC (4.8-10.8) K/uL RBC (4.7-6.1) M/uL Hgb (14.0-18.0) g/dL Hct (42-52) % MCV (80-100) fL MCH (25-34) pg MCHC (32-36) g/dL RDW Std Deviation (36.4-46.3) fL RDW Coeff of Violetta (11.5-14.5) % Plt Count (130-400) K/uL MPV (7.4-10.4) fL Immature Gran % (Auto) % Neut % (Auto) % Lymph % (Auto) % Garrard % (Auto) % Eos % (Auto) % Baso % (Auto) % Neut # (Auto) (1.4-6.5) K/uL Lymph # (Auto) (1.2-3.4) K/uL Garrard # (Auto) (0.11-0.59) K/uL Eos # (Auto) (0-0.5) K/uL Baso # (Auto) (0-0.2) K/uL Immature Gran # (Auto) (0.00-0.02) K/uL Platelet Estimate (Normal) Giant Platelets RBC Morphology PT 11.9 (9.0-12.0) Seconds INR 1.1 (0.9-1.1) APTT 27.1 (21.0-31.0) Seconds PTT Ratio 1.0 Sodium 139 (136-145) mmol/L Potassium 4.3 (3.5-5.1) mmol/L Chloride 112 H (98-107) mmol/L Carbon Dioxide 20 L (21-32) mmol/L Anion Gap 7 (3-11) BUN 20 (6-23) mg/dl Creatinine 1.33 (0.6-1.4) mg/dl Est Cr Clr Drug Dosing 57.4 ml/min Est GFR ( Amer) 61.9 ml/min Est GFR (Non-Af Amer) 53.4 ml/min BUN/Creatinine Ratio 15.0 (10-20) Glucose 280 H (70-99(Fasting)) mg/dl POC Glucose (70-99) mg/dl Estimat Average Glucose mg/dl Hemoglobin A1c (4.5-5.6) % Calcium 8.2 L (8.5-10.1) mg/dl Magnesium 1.7 (1.7-2.4) mg/dl Total Bilirubin 1.3 H (0.2-1.0) mg/dl AST 43 H (13-39) U/L ALT 23 (7-52) U/L Alkaline Phosphatase 180 H (34-104) U/L Ammonia (18-72) umol/L Troponin I < 0.03 (0-0.04) ng/ml Total Protein 6.3 (6.0-8.3) gm/dl Albumin 3.0 L (3.4-5.0) gm/dl Globulin 3.3 (2.5-4.0) gm/dl Albumin/Globulin Ratio 0.9 (0.9-2) Lipase 41 (11-82) U/L SARS-CoV-2, RNA, NAAT NEGATIVE (NEGATIVE) Blood Type Antibody Screen Crossmatch 03/01/22 Range/Units 18:00 WBC 2.51 L (4.8-10.8) K/uL RBC 2.48 L (4.7-6.1) M/uL Hgb 7.4 L (14.0-18.0) g/dL Hct 22.4 L (42-52) % MCV 90.3 (80-100) fL MCH 29.8 (25-34) pg MCHC 33.0 (32-36) g/dL RDW Std Deviation 54.5 H (36.4-46.3) fL RDW Coeff of Violetta 16.7 H (11.5-14.5) % Plt Count 91 L (130-400) K/uL MPV 12.0 H (7.4-10.4) fL Immature Gran % (Auto) 0.4 % Neut % (Auto) 63.7 % Lymph % (Auto) 23.9 % Garrard % (Auto) 4.0 % Eos % (Auto) 7.6 % Baso % (Auto) 0.4 % Neut # (Auto) 1.60 (1.4-6.5) K/uL Lymph # (Auto) 0.60 L (1.2-3.4) K/uL Garrard # (Auto) 0.10 L (0.11-0.59) K/uL Eos # (Auto) 0.19 (0-0.5) K/uL Baso # (Auto) 0.01 (0-0.2) K/uL Immature Gran # (Auto) 0.01 (0.00-0.02) K/uL Platelet Estimate Decreased L (Normal) Giant Platelets RBC Morphology Unremarkable PT (9.0-12.0) Seconds INR (0.9-1.1) APTT (21.0-31.0) Seconds PTT Ratio Sodium (136-145) mmol/L Potassium (3.5-5.1) mmol/L Chloride (98-107) mmol/L Carbon Dioxide (21-32) mmol/L Anion Gap (3-11) BUN (6-23) mg/dl Creatinine (0.6-1.4) mg/dl Est Cr Clr Drug Dosing ml/min Est GFR ( Amer) ml/min Est GFR (Non-Af Amer) ml/min BUN/Creatinine Ratio (10-20) Glucose (70-99(Fasting)) mg/dl POC Glucose (70-99) mg/dl Estimat Average Glucose mg/dl Hemoglobin A1c (4.5-5.6) % Calcium (8.5-10.1) mg/dl Magnesium (1.7-2.4) mg/dl Total Bilirubin (0.2-1.0) mg/dl AST (13-39) U/L ALT (7-52) U/L Alkaline Phosphatase (34-104) U/L Ammonia (18-72) umol/L Troponin I (0-0.04) ng/ml Total Protein (6.0-8.3) gm/dl Albumin (3.4-5.0) gm/dl Globulin (2.5-4.0) gm/dl Albumin/Globulin Ratio (0.9-2) Lipase (11-82) U/L SARS-CoV-2, RNA, NAAT (NEGATIVE) Blood Type Antibody Screen Crossmatch Diagnostic Findings EKG on admission: NSR with mild ST/T Wave depression in V3-V4. Repeat EKG: NSR with non specific ST/T wave abnormality but improved from admission Chest xray: no acute process Nuclear stress test report reviewed Dated Dec 2021: Interpretation Summary The combined low intensity exercise/Lexiscan Technetium 99m myocardial perfusion imaging study reveals a moderate sized fixed perfusion defect encompassing the inferior wall. In light of the appearance of the raw data and the normal gated wall motion, this is felt to be an attenuation artifact rather than a myocardial scar. There is no evidence of inducible ischemia. Gated SPECT imaging reveals normal myocardial thickening and wall motion. The left ventricular ejection fraction was calculated to be > 70%. Echo report reviewed dated Dec 2021: Interpretation Summary The examination is adequate to evaluate the referral indication. There was sinus bradycardia during the examination. The LV wall thickness is mildly increased (concentric). The left ventricular wall motion is normal. The left ventricular systolic function is normal. Calculated LV ejection Fraction = 61% (three dimensional volumes). The left atrium is moderately enlarged (42-48 ml/m^2). The left ventricular diastolic function is moderately abnormal (grade II). There is no evidence of pulmonary hypertension. The estimated pulmonary artery systolic pressure is 29 mm Hg (normal). Medications Administered Current Inpatient Medications Allopurinol (Allopurinol 100 Mg Tab) 100 mg PO BID JODI Stop: 03/31/22 21:31 Last Admin: 03/02/22 08:37 Dose: 100 mg Documented by: Citalopram Hydrobromide (Citalopram 20 Mg Tab) 10 mg PO QAM JODI Stop: 04/01/22 08:59 Last Admin: 03/02/22 08:37 Dose: 10 mg Documented by: Dextrose (Dextrose 50% 50 Ml Syringe) 25 - 50 ml IV UD PRN; Protocol PRN Reason: Hypoglycemia Protocol Stop: 03/31/22 21:59 Finasteride (Finasteride 5 Mg Tab) 5 mg PO DAILY JODI Stop: 04/01/22 08:59 Last Admin: 03/02/22 08:38 Dose: 5 mg Documented by: Glucagon (Glucagon For Inj 1 Mg Vial) 1 mg IM UD PRN; Protocol PRN Reason: Hypoglycemia Protocol Stop: 03/31/22 21:59 Glucose (Glucose 40% Gel 15 Gm Tube) 15 - 30 gm PO UD PRN; Protocol PRN Reason: Hypoglycemia Protocol Stop: 03/31/22 21:59 Glucose (Glucose 10 Tabs/Tube) 4 - 8 tabs PO UD PRN; Protocol PRN Reason: Hypoglycemia Protocol Stop: 03/31/22 21:59 Sodium Chloride (Nss) 250 mls @ 15 mls/hr IV .[id number] PRN PRN Reason: For Transfusion Stop: 03/31/22 21:31 Insulin Aspart (Insulin Aspart Per Unit) 0 units SC Q6 [facility] Stop: 04/01/22 11:59 Lactulose (Lactulose Syrup 10 Gm/15 Ml Btl 960 Ml) 10 gm PO BID JODI Stop: 03/31/22 21:31 Last Admin: 03/02/22 08:38 Dose: 10 gm Documented by: Miscellaneous (Carbohydrates For Hypoglycemia ) 15 - 30 gm PO UD PRN PRN Reason: Hypoglycemia Treatment Stop: 03/31/22 21:59 Nitroglycerin (Nitroglycerin Sl 0.4 Mg/Tab Tab) 0.4 mg SL UD PRN PRN Reason: Chest Pain Stop: 03/31/22 21:31 Pantoprazole Sodium (Pantoprazole 40 Mg Tab) 40 mg PO QAM [facility] Stop: 04/01/22 08:59 Last Admin: 03/02/22 08:38 Dose: 40 mg Documented by: Rifaximin (Rifaximin 550 Mg Tablet) 550 mg PO BID [facility] Stop: 03/31/22 21:31 Last Admin: 03/02/22 08:38 Dose: 550 mg Documented by: (1) Anemia Anemia type: unspecified type Qualified Code(s): D64.9 - Anemia, unspecified
[2022-03-02] MEDS ORDERED: INSULIN ASPART PER UNIT SC SCH (12:00)
--- NOTE | 2022-03-02 14:35 | Electrocardiogram Report ---
Test Reason : Blood Pressure : / mmHG Vent. Rate : 071 BPM Atrial Rate : 071 BPM P-R Int : 180 ms QRS Dur : 088 ms QT Int : 442 ms P-R-T Axes : 041 010 059 degrees QTc Int : 480 ms Normal sinus rhythm Nonspecific ST abnormality Prolonged QT Abnormal ECG When compared with ECG of 24-MAR-2020 09:45, Premature ventricular complexes are no longer Present Nonspecific T wave abnormality no longer evident in Inferior leads Confirmed by Salvador Scanlon ([id number]) on 03/02/2022 2:34:42 PM Referred By: REFERRED SELF Confirmed By:Salvador Scanlon
--- NOTE | 2022-03-02 14:42 | Electrocardiogram Report ---
Test Reason : Blood Pressure : / mmHG Vent. Rate : 061 BPM Atrial Rate : 061 BPM P-R Int : 194 ms QRS Dur : 092 ms QT Int : 508 ms P-R-T Axes : 047 -07 042 degrees QTc Int : 511 ms Normal sinus rhythm Nonspecific ST and T wave abnormality Prolonged QT Abnormal ECG When compared with ECG of 01-MAR-2022 17:56, (unconfirmed) T wave inversion now evident in Anterior leads Confirmed by Salvador Scanlon ([id number]) on 03/02/2022 2:42:14 PM Referred By: REFERRED SELF Confirmed By:Salvador Scanlon
--- NOTE | 2022-03-02 15:48 | Hospitalist Progress Note ---
Date of Service March 02, 2022 Assessment & Plan (1) Precordial chest pain: Plan: Presented with exertional chest pain in setting of acute blood loss anemia with hemoglobin 7.4 Serial troponins and EKG did not suggest any ACS Echo of the heart showed- LV systolic function is normal, EF 65 to 70%, mild concentric LVH, grade 1 diastolic dysfunction, mild MR and trace TR and Doppler findings do not suggest pulmonary hypertension Appreciate cardiology input and recommendation No further cardiac work-up (2) Rectal bleeding: Plan: Acute blood loss anemia History of prostate cancer as below and received radiation treatment in April 2021 History of recurrent rectal bleed and has had sigmoidoscopy with argon plasma coagulation in first week of January Hemoglobin was 7.4 and received 1 unit of blood transfusion Did not have any more bloody bowel movement since admission Appreciate GI input and recommendation for outpatient colonoscopy (3) Prostate cancer: Plan: Has a radiation treatment in April 2021 (4) Cirrhosis: Plan: History of liver cirrhosis with esophageal varices and Fly SLO[place] Has been under transplant list No acute liver failure (5) T2DM (type 2 diabetes mellitus): Plan: SSI (6) Esophageal varices: Plan: No evidence of esophageal bleeding (7) CKD (chronic kidney disease) stage 3, GFR 30-59 ml/min: Plan: Creatinine remains normal at 1.11 DVT prophylaxis SCDs-high risk of bleeding and also has pancytopenia with low platelet. Admission and Anticipated Discharge Date Admission Date: March 01, 2022 Subjective 03/02/2022 The patient was seen and examined in telemetry unit 71-year-old male with significant complicated past medical history as mentioned in H&P was admitted with rectal bleed and chest pain with shortness of breath Denies any abdominal distention, pain, nausea or vomiting Has had one large brown-colored diarrhea since admission Denies any more chest pain Review of Systems Review of Systems: All systems reviewed and are unremarkable except as noted below Cardiovascular: Additional Comments: No more chest pain and/or palpitation or shortness of breath Gastrointestinal: No abdominal pain and/or distention Physical Exam Physical Exam: Lying in bed comfortably Constitutional: well developed, well nourished and + obese; not ill appearing Eyes: PERRL, conjunctivae normal, anicteric sclerae ENMT: external ear and nose normal, oropharynx normal Neck: trachea midline, no thyromegaly Respiratory: no respiratory distress Auscultation: + diminished lung sounds and + crackles (Minimal crackles at the bases) Cardiovascular: Rate/Rhythm: regular rate and regular rhythm; not tachycardic Heart Sounds: normal S1 and normal S2; no murmur Extremities: + edema (Trace edema bilaterally) Gastrointestinal (Abdomen): Inspection/Auscultation: normal bowel sounds; abdomen not distended Percussion/Palpation: abdomen soft; abdomen nontender Musculoskeletal: No acute arthritis in any joint Neurologic: Alert, awake and oriented x3. No focal sensory or motor deficit appreciated Results & Data Results & Data ([facility]) Vital Signs (Past 12 Hours) Vital Signs Temp Pulse Pulse Resp BP Pulse Ox 03/02/22 15:18 36.7 C 58 L 19 157/73 H 97 03/02/22 14:58 61 03/02/22 10:57 36.9 C 59 L 19 155/72 H 97 03/02/22 09:20 60 03/02/22 07:36 36.7 C 58 L 18 119/58 L 97 Laboratory Results Short CBC 03/01/22 03/02/22 Range/Units 18:00 05:31 WBC 2.51 L 2.78 L (4.8-10.8) K/uL Hgb 7.4 L 8.3 L (14.0-18.0) g/dL Hct 22.4 L 25.2 L (42-52) % Plt Count 91 L 77 L (130-400) K/uL BMP 03/01/22 03/02/22 18:00 05:31 Sodium 139 140 Potassium 4.3 3.9 Chloride 112 H 114 H Carbon Dioxide 20 L 21 BUN 20 18 Creatinine 1.33 1.11 Glucose 280 H 184 H Calcium 8.2 L 7.9 L Cardiac Enzymes 03/01/22 03/01/22 03/02/22 Range/Units 18:00 20:40 08:51 Troponin I < 0.03 0.07 H* < 0.03 (0-0.04) ng/ml 03/02/22 Range/Units 14:17 Troponin I < 0.03 (0-0.04) ng/ml Liver Function 03/01/22 Range/Units 18:00 Total Bilirubin 1.3 H (0.2-1.0) mg/dl AST 43 H (13-39) U/L ALT 23 (7-52) U/L Alkaline Phosphatase 180 H (34-104) U/L Albumin 3.0 L (3.4-5.0) gm/dl Medications Administered Current Inpatient Medications Allopurinol (Allopurinol 100 Mg Tab) 100 mg PO BID JODI Stop: 03/31/22 21:31 Last Admin: 03/02/22 08:37 Dose: 100 mg Documented by: Citalopram Hydrobromide (Citalopram 20 Mg Tab) 10 mg PO QAM JODI Stop: 04/01/22 08:59 Last Admin: 03/02/22 08:37 Dose: 10 mg Documented by: Dextrose (Dextrose 50% 50 Ml Syringe) 25 - 50 ml IV UD PRN; Protocol PRN Reason: Hypoglycemia Protocol Stop: 03/31/22 21:59 Finasteride (Finasteride 5 Mg Tab) 5 mg PO DAILY JODI Stop: 04/01/22 08:59 Last Admin: 03/02/22 08:38 Dose: 5 mg Documented by: Glucagon (Glucagon For Inj 1 Mg Vial) 1 mg IM UD PRN; Protocol PRN Reason: Hypoglycemia Protocol Stop: 03/31/22 21:59 Glucose (Glucose 40% Gel 15 Gm Tube) 15 - 30 gm PO UD PRN; Protocol PRN Reason: Hypoglycemia Protocol Stop: 03/31/22 21:59 Glucose (Glucose 10 Tabs/Tube) 4 - 8 tabs PO UD PRN; Protocol PRN Reason: Hypoglycemia Protocol Stop: 03/31/22 21:59 Sodium Chloride (Nss) 250 mls @ 15 mls/hr IV .[id number] PRN PRN Reason: For Transfusion Stop: 03/31/22 21:31 Insulin Aspart (Insulin Aspart Per Unit) 0 units SC ACHS JODI Stop: 04/01/22 11:29 Last Admin: 03/02/22 12:35 Dose: 3 units Documented by: Lactulose (Lactulose Syrup 10 Gm/15 Ml Btl 960 Ml) 10 gm PO BID JODI Stop: 03/31/22 21:31 Last Admin: 03/02/22 08:38 Dose: 10 gm Documented by: Miscellaneous (Carbohydrates For Hypoglycemia ) 15 - 30 gm PO UD PRN PRN Reason: Hypoglycemia Treatment Stop: 03/31/22 21:59 Nitroglycerin (Nitroglycerin Sl 0.4 Mg/Tab Tab) 0.4 mg SL UD PRN PRN Reason: Chest Pain Stop: 03/31/22 21:31 Pantoprazole Sodium (Pantoprazole 40 Mg Tab) 40 mg PO QAM [facility] Stop: 04/01/22 08:59 Last Admin: 03/02/22 08:38 Dose: 40 mg Documented by: Rifaximin (Rifaximin 550 Mg Tablet) 550 mg PO BID [facility] Stop: 03/31/22 21:31 Last Admin: 03/02/22 08:38 Dose: 550 mg Documented by: (1) Cirrhosis Ascites presence: without ascites Hepatic cirrhosis type: unspecified hepatic cirrhosis Qualified Code(s): K74.60 - Unspecified cirrhosis of liver (2) Esophageal varices Esophageal varices type: unspecified type
[2022-03-03 03:48] VITALS: O2SAT 97
[2022-03-03 06:23] LABS: Hematocrit (blood only) 24.8 % (42-52); Hemoglobin 8.3 g/dL (14.0-18.0); Mean Corpuscular Hgb Conc 33.5 g/dL (32-36); Mean Corpuscular Volume 89.5 fL (80-100); RDW Coefficient of Variation 16.5 % (11.5-14.5); RDW Standard Deviation 53.1 fL (36.4-46.3); Red Blood Count 2.77 M/uL (4.7-6.1); White Blood Count 3.08 K/uL (4.8-10.8)
[2022-03-03 06:51] LABS: Creatinine Clr Calc Pharmacy 60.8 ml/min; Est GFR (African American) 73.8 ml/min; Est GFR (Non-African American) 63.7 ml/min; Magnesium 1.5 mg/dl (1.7-2.4); Potassium 4.1 mmol/L (3.5-5.1)
[2022-03-03 08:01] LABS: Mean Platelet Volume 10.3 fL (7.4-10.4); Platelet Count 80 K/uL (130-400)
[2022-03-03 08:04] VITALS: PULSE 57; TEMP 98.2
[2022-03-03 08:10] LABS: Basophils # (auto) 0.01 K/uL (0-0.2); Basophils % (auto) 0.3 %; Eosinophils # (auto) 0.31 K/uL (0-0.5); Eosinophils % (auto) 10.1 %; Immature Granulocytes # (auto) 0.01 K/uL (0.00-0.02); Immature Granulocytes % (auto) 0.3 %; Lymphocytes # (auto) 0.66 K/uL (1.2-3.4); Lymphocytes % (auto) 21.4 %; Microcytosis Present; Monocytes # (auto) 0.26 K/uL (0.11-0.59); Monocytes % (auto) 8.4 %; Neutrophils # (auto) 1.83 K/uL (1.4-6.5); Neutrophils % (auto) 59.5 %
[2022-03-03] MEDS: PANTOprazole 40 MG TAB PO SCH (08:35)
[2022-03-03] MEDS: FINASTERIDE 5 MG TAB PO SCH (08:35)
[2022-03-03] MEDS: rifAXIMin 550 MG TABLET PO SCH (08:35)
[2022-03-03] MEDS: CITALOPRAM 20 MG TAB PO SCH (08:35)
[2022-03-03] MEDS: allopurinoL 100 MG TAB PO SCH (08:35)
[2022-03-03] MEDS: INSULIN ASPART PER UNIT SC SCH ×2 (08:42→12:20)
--- NOTE | 2022-03-03 10:22 | Electrocardiogram Report ---
Test Reason : Blood Pressure : / mmHG Vent. Rate : 055 BPM Atrial Rate : 055 BPM P-R Int : 198 ms QRS Dur : 096 ms QT Int : 532 ms P-R-T Axes : 035 -12 028 degrees QTc Int : 508 ms Sinus bradycardia with occasional Premature ventricular complexes Nonspecific ST and T wave abnormality Prolonged QT Abnormal ECG When compared with ECG of 02-MAR-2022 05:29, Premature ventricular complexes are now Present Confirmed by Chino Kohler ([id number]) on 03/03/2022 10:21:38 AM Referred By: REFERRED SELF Confirmed By:Chino Kohler
[2022-03-03] MEDS: LACTULOSE SYRUP 10 GM/15 ML BTL 960 ML PO SCH (11:56)
--- NOTE | 2022-03-03 13:11 | Hospitalist Progress Note ---
Date of Service March 03, 2022 Assessment & Plan (1) Precordial chest pain: Plan: Presented with exertional chest pain in setting of acute blood loss anemia with hemoglobin 7.4 Serial troponins and EKG did not suggest any ACS Echo of the heart showed- LV systolic function is normal, EF 65 to 70%, mild concentric LVH, grade 1 diastolic dysfunction, mild MR and trace TR and Doppler findings do not suggest pulmonary hypertension Appreciate cardiology input and recommendation No further cardiac work-up Denies any more chest pain and/or palpitation or shortness of breath (2) Rectal bleeding: Plan: Acute blood loss anemia History of prostate cancer as below and received radiation treatment in April 2021 History of recurrent rectal bleed and has had sigmoidoscopy with argon plasma coagulation in first week of January Hemoglobin was 7.4 and received 1 unit of blood transfusion Did not have any more bloody bowel movement since admission Appreciate GI input and recommendation for outpatient colonoscopy Has had bowel movement without any blood in it No abdominal pain, nausea no vomiting (3) Prostate cancer: Plan: Has a radiation treatment in April 2021 (4) Cirrhosis: Plan: History of liver cirrhosis with esophageal varices and [place] Has been under transplant list No acute liver failure (5) T2DM (type 2 diabetes mellitus): Plan: SSI (6) Esophageal varices: Plan: No evidence of esophageal bleeding (7) CKD (chronic kidney disease) stage 3, GFR 30-59 ml/min: Plan: Creatinine remains normal at 1.11 DVT prophylaxis SCDs-high risk of bleeding and also has pancytopenia with low platelet. Will be discharged home this afternoon Admission and Anticipated Discharge Date Admission Date: March 01, 2022 Subjective 03/02/2022 The patient was seen and examined in telemetry unit 71-year-old male with significant complicated past medical history as mentioned in H&P was admitted with rectal bleed and chest pain with shortness of breath Denies any abdominal distention, pain, nausea or vomiting Has had one large brown-colored diarrhea since admission Denies any more chest pain 03/03/2022 The patient was seen and examined in telemetry unit He remains stable and denies any more rectal bleed Denies any abdominal pain, distention, nausea and/or vomiting No more chest pain and/or palpitation Review of Systems Review of Systems: All systems reviewed and are unremarkable except as noted below Cardiovascular: Additional Comments: No more chest pain and/or palpitation or shortness of breath Gastrointestinal: No abdominal pain and/or distention Physical Exam Physical Exam: Lying in bed comfortably Constitutional: well developed, well nourished and + obese; not ill appearing Eyes: PERRL, conjunctivae normal, anicteric sclerae ENMT: external ear and nose normal, oropharynx normal Neck: trachea midline, no thyromegaly Respiratory: no respiratory distress Auscultation: + diminished lung sounds and + crackles (Minimal crackles at the bases) Cardiovascular: Rate/Rhythm: regular rate and regular rhythm; not tachycardic Heart Sounds: normal S1 and normal S2; no murmur Extremities: + edema (Trace edema bilaterally) Gastrointestinal (Abdomen): Inspection/Auscultation: normal bowel sounds; abdomen not distended Percussion/Palpation: abdomen soft; abdomen nontender Musculoskeletal: No acute arthritis in any joint Neurologic: normal touch/pain/proprioception, CN's II-XI intact bilaterally and moves all extremities Psychiatric: A+Ox3, euthymic affect Genitourinary: No urinary symptoms Lymphatic: no cervical or axillary lymphadenopathy Results & Data Results & Data ([facility]) Vital Signs (Past 12 Hours) Vital Signs Temp Pulse Pulse Resp BP BP Pulse Ox 03/03/22 12:04 36.8 C 57 L 16 116/61 97 03/03/22 09:50 57 L 03/03/22 08:03 36.8 C 57 L 20 160/77 H 97 03/03/22 04:07 36.5 C 56 L 16 118/62 97 03/03/22 03:48 36.8 C 59 L 20 125/56 L 97 Laboratory Results Short CBC 03/03/22 Range/Units 06:00 WBC 3.08 L (4.8-10.8) K/uL Hgb 8.3 L (14.0-18.0) g/dL Hct 24.8 L (42-52) % Plt Count 80 L (130-400) K/uL BMP 03/03/22 06:00 Sodium 138 Potassium 4.1 Chloride 112 H Carbon Dioxide 22 BUN 15 Creatinine 1.15 Glucose 142 H Calcium 8.0 L Cardiac Enzymes 03/02/22 Range/Units 14:17 Troponin I < 0.03 (0-0.04) ng/ml Medications Administered Current Inpatient Medications Allopurinol (Allopurinol 100 Mg Tab) 100 mg PO BID JODI Stop: 03/31/22 21:31 Last Admin: 03/03/22 08:35 Dose: 100 mg Documented by: Citalopram Hydrobromide (Citalopram 20 Mg Tab) 10 mg PO QAM JODI Stop: 04/01/22 08:59 Last Admin: 03/03/22 08:35 Dose: 10 mg Documented by: Dextrose (Dextrose 50% 50 Ml Syringe) 25 - 50 ml IV UD PRN; Protocol PRN Reason: Hypoglycemia Protocol Stop: 03/31/22 21:59 Finasteride (Finasteride 5 Mg Tab) 5 mg PO DAILY JODI Stop: 04/01/22 08:59 Last Admin: 03/03/22 08:35 Dose: 5 mg Documented by: Glucagon (Glucagon For Inj 1 Mg Vial) 1 mg IM UD PRN; Protocol PRN Reason: Hypoglycemia Protocol Stop: 03/31/22 21:59 Glucose (Glucose 40% Gel 15 Gm Tube) 15 - 30 gm PO UD PRN; Protocol PRN Reason: Hypoglycemia Protocol Stop: 03/31/22 21:59 Glucose (Glucose 10 Tabs/Tube) 4 - 8 tabs PO UD PRN; Protocol PRN Reason: Hypoglycemia Protocol Stop: 03/31/22 21:59 Sodium Chloride (Nss) 250 mls @ 15 mls/hr IV .[id number] PRN PRN Reason: For Transfusion Stop: 03/31/22 21:31 Insulin Aspart (Insulin Aspart Per Unit) 0 units SC ACHS JODI Stop: 04/01/22 11:29 Last Admin: 03/03/22 12:20 Dose: Not Given Documented by: Lactulose (Lactulose Syrup 10 Gm/15 Ml Btl 960 Ml) 10 gm PO BID JODI Stop: 03/31/22 21:31 Last Admin: 03/03/22 11:56 Dose: Not Given Documented by: Miscellaneous (Carbohydrates For Hypoglycemia ) 15 - 30 gm PO UD PRN PRN Reason: Hypoglycemia Treatment Stop: 03/31/22 21:59 Nitroglycerin (Nitroglycerin Sl 0.4 Mg/Tab Tab) 0.4 mg SL UD PRN PRN Reason: Chest Pain Stop: 03/31/22 21:31 Pantoprazole Sodium (Pantoprazole 40 Mg Tab) 40 mg PO QAM JODI Stop: 04/01/22 08:59 Last Admin: 03/03/22 08:35 Dose: 40 mg Documented by: Rifaximin (Rifaximin 550 Mg Tablet) 550 mg PO BID JODI Stop: 03/31/22 21:31 Last Admin: 03/03/22 08:35 Dose: 550 mg Documented by: (1) Esophageal varices Esophageal varices type: unspecified type (2) Cirrhosis Ascites presence: without ascites Hepatic cirrhosis type: unspecified hepatic cirrhosis Qualified Code(s): K74.60 - Unspecified cirrhosis of liver
[2022-03-03 15:42] VITALS: BP 160/77
--- NOTE | 2022-03-04 07:56 | Discharge Summary ---
Date of Service March 04, 2022 Admission HPI Per Admitting Provider DICTATED BY:Roderick Alba MD DATE OF ADMISSION: 03/01/2022. CHIEF COMPLAINT: Chest pain. HISTORY OF PRESENT ILLNESS: This 71-year-old male with past medical history significant for type 2 diabetes, hyperlipidemia, GAVE, esophageal varices, portal vein thrombosis, history of prolonged QT, cirrhosis of liver, FOFANA, GERD, hepatocellular carcinoma, prostate cancer, chronic kidney disease stage III, compression fracture of L1 vertebra, thrombocytopenia, iron-deficiency anemia, pancytopenia, psoriasis, status post TIPS. The patient had completed radiation treatment in 04/2021 for prostrate cancer, evaluated by interventional radiologist for liver cancer. The patient is on transplant list and the patient had a liver-directed therapy bland embolization of the left hepatic lobe at [facility] done on 04/18/2021. The patient has history of anemia, on frequent blood transfusions, multiple iron infusions. The patient says a couple of weeks ago, he had blood transfusion in [facility]. He also had TIPS procedure done and the patient says since then he is not having much ascites. The patient recently had flexible sigmoidoscopy in first week of January; at that time, there was no bleeding found, but he was treated with argon plasma coagulation. The patient says on the night of flexible sigmoidoscopy, he started bleeding again. Since then, he is bleeding 3-4 days and a couple of days he does not bleed and again starts to bleed for 3-4 days. Since the last 3- 4 days, he is again having rectal bleeding. Today, he was helping his go to [facility]. He was carrying stuff, he overexerted himself and had chest pain in the middle of the chest, no radiation, severe in nature, nurse came out and helped him sit down and take rest; however, after resting for 10 minutes, it subsided. During the episode, he also felt dizzy and short of breath. He has chronic shortness of breath. Currently, chest pain free, but once in a while he gets some soreness in the middle of the chest. Denies any blurred visions, no earache, no runny nose, no sore throat, no cough. Appetite is good. No nausea, no vomiting, no abdominal pain. Normal bladder movements. Currently has some swelling in the legs. Ambulating okay otherwise. Sleeping okay. Currently, hemodynamically stable. Admission Exam Per Admitting Provider GENERAL: The patient is of moderate build, not in acute distress. VITAL SIGNS: Temperature 37.4, pulse 72, respiratory rate 21, blood pressure 142/63, oxygen 98% on room air. HEENT: Pupils equal, round and reactive to light. Oral mucosa moist. NECK: No JVD, no neck masses. CARDIOVASCULAR: S1 and S2 heard. Regular rate and rhythm. No murmur, no gallop. RESPIRATORY SYSTEM: Normal AP diameter. No accessory muscle use. No wheezing, no crackles. ABDOMEN: Soft, bowel sounds present, nontender, no distention. CENTRAL NERVOUS SYSTEM: Cranial nerves II-XII grossly intact, nonfocal. EXTREMITIES: Mild bilateral lower extremity edema present, no erythema seen. SKIN: Psoriatic lesions seen all over the body. Dry skin. Principal Diagnosis Precordial chest pain-no ACS, recurrent rectal bleeding, prostate cancer, cirrhosis on the transplant list Discharge Exam Lying in bed comfortably Constitutional well developed, well nourished and + obese; not ill appearing Eyes PERRL, conjunctivae normal, anicteric sclerae ENMT external ear and nose normal, oropharynx normal Neck trachea midline, no thyromegaly Respiratory no respiratory distress Auscultation: + diminished lung sounds and + crackles (Minimal crackles at the bases) Cardiovascular Rate/Rhythm: regular rate and regular rhythm; not tachycardic Heart Sounds: normal S1 and normal S2; no murmur Extremities: + edema (Trace edema bilaterally) Gastrointestinal (Abdomen) Inspection/Auscultation: normal bowel sounds; abdomen not distended Percussion/Palpation: abdomen soft; abdomen nontender Neurologic normal touch/pain/proprioception, CN's II-XI intact bilaterally and moves all extremities Psychiatric A+Ox3, euthymic affect Lymphatic no cervical or axillary lymphadenopathy Discharge Data Allergies Allergy/AdvReac Type Severity Reaction Status Date / Time No Known Allergies Allergy Mild Verified 03/01/22 19:47 Consultations 03/01/22 19:46 ED Decision to Admit Stat 03/02/22 08:00 Consult Cardiology Routine Consult Gastroenterology Routine Hospital Course (1) Precordial chest pain: Presented with exertional chest pain in setting of acute blood loss anemia with hemoglobin 7.4 Serial troponins and EKG did not suggest any ACS Echo of the heart showed- LV systolic function is normal, EF 65 to 70%, mild concentric LVH, grade 1 diastolic dysfunction, mild MR and trace TR and Doppler findings do not suggest pulmonary hypertension Appreciate cardiology input and recommendation No further cardiac work-up Denies any more chest pain and/or palpitation or shortness of breath (2) Rectal bleeding: Acute blood loss anemia History of prostate cancer as below and received radiation treatment in April 2021 History of recurrent rectal bleed and has had sigmoidoscopy with argon plasma coagulation in first week of January Hemoglobin was 7.4 and received 1 unit of blood transfusion Did not have any more bloody bowel movement since admission Appreciate GI input and recommendation for outpatient colonoscopy Has had bowel movement without any blood in it No abdominal pain, nausea no vomiting (3) Prostate cancer: Has a radiation treatment in April 2021 (4) Cirrhosis: History of liver cirrhosis with esophageal varices and [address] Has been under transplant list No acute liver failure (5) T2DM (type 2 diabetes mellitus): SSI (6) Esophageal varices: No evidence of esophageal bleeding (7) CKD (chronic kidney disease) stage 3, GFR 30-59 ml/min: Creatinine remains normal at 1.11 DVT prophylaxis SCDs-high risk of bleeding and also has pancytopenia with low platelet. Will be discharged home this afternoon Total Time Total Time Spent Total Time Spent (In Minutes): 35 minutes Discharge Plan Discharge Items Patient Disposition: Home - Self-Care Reason For Visit: CHEST PAIN Discharge Diagnosis: Precordial chest pain-no ACS, recurrent rectal bleeding, prostate cancer, cirrhosis on the transplant list Condition on Discharge: Fair Activity: Resume your previous activity Non-emergency contact: Primary Care Provider Call non-emergency contact if: you have any medication questions and your symptoms worsen Follow-up/Referrals: Francisco Cisse MD [Primary Care Provider] - (Your doctor's office will call you with an appointment within 7 days) Diet: Carb Consistent or DM2 and Heart Healthy Addtl Attending Provider Instructions: Please take precautions to avoid falls No change in new medications Please keep appointments with your healthcare providers Pending Studies at Discharge: No Stand-Alone Forms: My [employer], Smoking Cessation Medications and DC Order Prescriptions: Continued citalopram [Celexa] 10 mg tablet 10 mg PO QAM RF: 0 omeprazole 40 mg capsule,delayed release(DR/EC) 40 mg PO QAM RF: 0 lactulose 10 gram/15 mL solution See Rx Instructions .ROUTE .COMPLEX RF: 0 allopurinol 100 mg Tablet 100 mg PO BID RF: 0 Xifaxan 550 mg tablet 550 mg PO BID RF: 0 finasteride 5 mg Tablet 5 mg PO DAILY RF: 0 Discharge Orders: Discharge Order (Routine); Ordered 03/03/22 Ordered By: Carlos Velazquez/Other Patient Handouts: Managing Type 2 Diabetes Admission Data Admit Date/Time: 03/01/22 20:28 Attending Provider: Carlos Avalos Admit Provider: Roderick Alba Primary Care Provider: Francisco Cisse Other Providers: Roderick Alba ; Alex Johnson ; Rodrigo Reynolds ; Kobe Gabriel ; Rc Moreno ; Demian Long ; Kevin Clarke ; Lorie Oneill ; Karey Scott ; Carlee Salazar ; Sanjeev Lewis ; Lamar Tatum ; Sue Gray ; Concetta Muir ; Michelle Ochoa ; Juaquin Arrington ; Edis Price ; David Duncan ; Andrea Sosa ; Cheyenne Marsh ; Barbara March ; Leydi Wade ; Chrystal Shipley ; Miguel Clarke Other Interventions: Discharge Summary Assessment (RN) Last Done: 03/03/22 15:41
== END 2022-03-03 15:20 | disposition home or self-care (01) | DRG 377 ==
LOC: ED 17:52 → 2S 20:28
DX: C22.9 Malignant neoplasm of liver, not specified as primary or secondary; D62 Acute posthemorrhagic anemia; I81 Portal vein thrombosis; D61.818 Other pancytopenia; M10.9 Gout, unspecified; Z92.3 Personal history of irradiation; R79.89 Other specified abnormal findings of blood chemistry; K75.81 Nonalcoholic steatohepatitis (NASH); Z85.46 Personal history of malignant neoplasm of prostate; R07.89 Other chest pain; K74.69 Other cirrhosis of liver; Z68.26 Body mass index [BMI] 26.0-26.9, adult; I12.9 Hypertensive chronic kidney disease with stage 1 through stage 4 chronic kidney disease, or unspecified chronic kidney disease; N18.31 Chronic kidney disease, stage 3a; K76.6 Portal hypertension; E11.22 Type 2 diabetes mellitus with diabetic chronic kidney disease; K92.1 Melena; E66.9 Obesity, unspecified; R18.8 Other ascites; C22.0 Liver cell carcinoma; I85.10 Secondary esophageal varices without bleeding

== ENCOUNTER 2022-07-26 14:10 | Inpatient (IN) ==
--- NOTE | 2022-07-26 14:23 | Emergency Department Note ---
Impression & Plan Acute hyperglycemia, Pancytopenia ED Provider Note NAME: MERRITT TAPIA AGE: 72 SEX: M : 1950 ARRIVES VIA: Ambulance INFORMANT: Patient, ED PROVIDER(S): Adrian Fitch MD Chief Complaint: Elevated blood sugar HPI: Patient presents due to concern with elevated blood sugar. The patient states that typically his blood sugars run in the 250s but today he did have routine blood work completed as he does have this completed monthly and was told that his sugar was greater than 600 and was advised to present to the emergency department. Patient denies any fevers chills chest pain shortness of breath nausea or vomiting. The patient has admitted to increased thirst been ongoing for the last 3 weeks. Patient does drink soda but states is diet soda. Patient denies any diarrhea. Patient states that he does not use insulin. Patient has admitted to increased urination. Nothing has made his symptoms any better or worse at this time. ROS: See HPI for pertinent positives and negatives. A total of 10 systems were reviewed and otherwise negative. Past medical history: See below Surgical history: See below Social history: See below Physical Exam: GENERAL: NAD, wearing a mask, non-toxic. Wearing glasses. EYE EXAM: Slight scleral icterus noted PERRL, no anisocoria and EOM's grossly intact w/o pain. NECK: Supple, no nuchal rigidity, no adenopathy, non-tender. No signs of meningismus. FROM of the neck with good chin to chest and neck extension. No stridor. LUNGS: Clear to auscultation. Normal chest wall mechanics. HEART: NSR, no MRG. ABDOMEN: Abdomen soft, non-tender, normo-active bowel sounds, no masses, no rebound or guarding. BACK: No CVA TTP. SKIN: No rashes and no bruising. UPPER EXTREMITIES: Upper extremities are grossly normal. LOWER EXTREMITIES: Grossly normal, no edema. NEURO EXAM: A&O x3, cranial nerves II-XII grossly intact, normal speech, moves all 4 extremities. Differential diagnoses: Infection, dehydration, metabolic abnormality, hypo/hyperglycemia, electrolyte disturbance, anemia, hypoxia, cardiac sources, intracerebral event, toxicologic, neurologic, as well as other pathologies. Course: Patient was seen and evaluated the bedside. Full history physical exam was performed. EKG interpreted by me Sinus bradycardia rate of 59, normal intervals, normal axis, T wave version in lead III. Imaging Studies: See Below Cardiac monitoring: An order was placed for continuous cardiac monitoring. The monitor shows a rate of 65 with sinus rhythm. MDM: Patient presented due to concern for hyperglycemia. Blood work was obtained. The patient did have pancytopenia with a white count of 2.9 hemoglobin is 7.5. The patient has had a range of anemia ranging anywhere from 7-9's. Patient does have thrombocytopenia at 65. Patient has had a chronic thrombocytopenia. Kidney function is unremarkable. BSG was greater than 700. Magnesium slightly low 1.6. The patient was ordered an insulin drip. I did speak the on-call hospitalist JEFF Ball and the patient was admitted by Dr. Paul. Critical Care: I have personally spent 65 minutes of critical care time in direct management of this patient. This includes bedside care, interpretation of diagnostic studies, and testing, discussion with consultants, patient, and family members, and other require inpatient management activities. This 65 minutes is in excess of all separately billable procedures. 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 CKD (chronic kidney disease) stage 3, GFR 30-59 ml/min DVT prophylaxis Esophageal varices Esophageal varices GAVE (gastric antral vascular ectasia) GERD (gastroesophageal reflux disease) Gout NO ISSUES CURRENTLY History of panic attacks Hyperosmolar hyperglycemic state (HHS) Hypertension Prostate cancer (11/10/20) Psoriasis Rectal bleeding Shortness of breath Upper GI bleed Surgical History History of abdominal paracentesis multiple---pt states last was 6 months ago History of colonoscopy with polypectomy History of esophagogastroduodenoscopy (EGD) last 10/25 revealed grade 2 esophageal varices, grade 1 gastric varices STABLE History of prostate biopsy malignant History of tonsillectomy and adenoidectomy S/P TIPS (transjugular intrahepatic portosystemic shunt) Family History Father , "3/4 liver gone due to drinking" Colorectal cancer, Onset Age: 63 Mother Lung cancer Daughter Cancer cervical and thyroid cancers Ovarian cancer Other No family history of adverse response to anesthesia 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 Smoking Status: Never smoker Second Hand Exposure: No; Hx Alcohol Use: No Hx Substance Use: No Preferred Language: Azeri Communication Ability: Effective Visual Impairment: No Limitations Hearing Ability: Normal Biomedical Equipment Support Specialist Required: No Beliefs That Will Affect Care: None marital status: Current Living Situation: Spouse 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 How many Children do You have: 6 How many Children do You have Comment: one , eldest daughter in her sleep from seizure disorder Feels Safe at Home: Yes Childhood Exposure to Second-Hand Smoke: Yes Diet Comment: "I watch my sugar, average fasting is 140 mg/dl" caffeine: Yes (cola, sugar free, decaf) during the past year weight has: remained stable Dental Care, Regularly: No Physical Activity Frequency: Does not Exercise Seatbelt Use: always Sunscreen Use: Yes Assistive Devices: Glasses Allergies Allergies Allergy/AdvReac Type Severity Reaction Status Date / Time No Known Allergies Allergy Mild Verified 04/12/22 08:58 Home Meds Home Medications Medication Instructions Recorded Confirmed citalopram 10 mg tablet (Celexa) 10 mg PO QAM 03/24/20 07/26/22 omeprazole 40 mg capsule,delayed 40 mg PO QAM 03/24/20 07/26/22 release allopurinol 100 mg tablet 100 mg PO BID 05/16/20 07/26/22 rifaximin 550 mg tablet (Xifaxan) 550 mg PO BID 12/08/20 07/26/22 finasteride 5 mg tablet 5 mg PO QAM 11/03/21 07/26/22 lactulose 10 gram/15 mL oral See Rx Instructions .Route 03/13/22 07/26/22 solution .COMPLEX PRN Constipation furosemide 20 mg tablet 20 mg PO QAM 07/26/22 07/26/22 mirtazapine 30 mg tablet 30 mg PO HS 07/26/22 07/26/22 spironolactone 25 mg tablet 25 mg PO QAM 07/26/22 07/26/22 Results & Data (ED) Vital Signs Vital Signs - 24 hr 07/26/22 14:26 07/26/22 14:33 07/26/22 18:00 Temperature 37.2 C Temperature Source Oral Pulse Rate 62 Pulse Rate [Apical] 64 Pulse Rhythm Regular Pulse Strength Normal Respiratory Rate 22 Respiratory Effort / Characteristics Non-Labored Respiratory Depth Normal Respiratory Pattern Regular Blood Pressure 142/58 H Blood Pressure [Right Arm] 131/60 Blood Pressure Mean 86 Blood Pressure Mean [Right Arm] 83 Pulse Oximetry 98 98 96 Oxygen Delivery Method Room Air Room Air Room Air Sepsis Recent Fever Within 48 Hours No Sepsis New/Unexplained Change in Mental Status N/A Sepsis Action Taken by Nursing No Action Required Home Medications Current Medication List: was personally reviewed by me Laboratory Data Attestation: I reviewed the patient's lab results. Result diagrams: 07/26/22 14:25 07/26/22 20:03 Lab Results 07/26/22 07/26/22 07/26/22 Range/Units 14:20 14:25 14:25 WBC 2.95 L (4.8-10.8) K/ul RBC 2.21 L (4.63-6.08) M/uL Hgb 7.5 L (14.0-18.0) g/dl Hct 22.1 L (40.1-51.0) % MCV 100.0 (80.0-100.0) fL MCH 33.9 (25.0-34.0) pg MCHC 33.9 (32.0-36.0) g/dL RDW Std Deviation 62.8 H (36.4-46.3) fL RDW Coeff of Violetta 17.8 H (11.5-14.5) % Plt Count 65 L (130-400) K/uL MPV 11.3 (9.4-12.4) fL Immature Gran % (Auto) 1.7 % Neut % (Auto) 64.0 % Lymph % (Auto) 22.4 % [place] % (Auto) 5.8 % Eos % (Auto) 5.4 % Baso % (Auto) 0.7 % Neut # (Auto) 1.89 (1.4-6.5) K/uL Lymph # (Auto) 0.66 L (1.2-3.4) K/uL [place] # (Auto) 0.17 L (0.24-0.82) K/uL Eos # (Auto) 0.16 (0-0.50) K/uL Baso # (Auto) 0.02 (0-0.2) K/uL Immature Gran # (Auto) 0.05 H (0.00-0.02) K/uL Absolute Nucleated RBC 0.03 H (0-0) K/uL Nucleated RBC % (auto) 1.0 % Platelet Estimate Decreased L (Normal) Polychromasia 1+ Tear Drop Cells 1+ VBG pH (7.36-7.41) VBG pCO2 (38-50) mmHg VBG pO2 mmHg VBG HCO3 mmol/L VBG O2 Saturation % VBG Base Excess mEq/L Sodium 125 L (136-145) mmol/L Potassium 4.5 (3.5-5.1) mmol/L Chloride 96 L (98-107) mmol/L Carbon Dioxide 17 L (21-32) mmol/L Anion Gap 12 H (3-11) BUN 23 (6-23) mg/dl Creatinine 1.56 H (0.6-1.4) mg/dl Est Cr Clr Drug Dosing 44.2 ml/min Est GFR ( Amer) 50.7 ml/min Est GFR (Non-Af Amer) 43.7 ml/min BUN/Creatinine Ratio 14.7 (10-20) Glucose 744 H* (70-99(Fasting)) mg/dl POC Glucose > 600 H* (70-99) mg/dl Calcium 9.0 (8.5-10.1) mg/dl Phosphorus (2.5-4.9) mg/dl Magnesium (1.7-2.4) mg/dl Total Bilirubin 3.9 H (0.2-1.0) mg/dl AST 26 (13-39) U/L ALT 18 (7-52) U/L Alkaline Phosphatase 172 H (34-104) U/L Total Protein 5.8 L (6.0-8.3) gm/dl Albumin 2.8 L (3.4-5.0) gm/dl Globulin 3.0 (2.5-4.0) gm/dl Albumin/Globulin Ratio 0.9 (0.9-2) TSH (0.300-4.500) uIu/ml Urine Color Urine Appearance (Clear) Urine pH (4.5-7.5) Ur Specific Sigurd (1.000-1.030) Urine Protein (Negative) Urine Glucose (UA) (Negative) Urine Ketones (Negative) Urine Blood (Negative) Urine Nitrite (Negative) Urine Bilirubin (Negative) Urine Urobilinogen (Negative) Ur Leukocyte Esterase (Negative) Urine WBC (Auto) (0-5) /hpf Urine RBC (Auto) (0-4) /hpf U Hyaline Cast (Auto) (0-5) /lpf U Epithel Cells (Auto) (0-5) /lpf Urine Bacteria (Auto) (Negative) SARS-CoV-2, RNA, NAAT (NEGATIVE) 07/26/22 07/26/22 07/26/22 Range/Units 14:25 14:50 16:06 WBC (4.8-10.8) K/ul RBC (4.63-6.08) M/uL Hgb (14.0-18.0) g/dl Hct (40.1-51.0) % MCV (80.0-100.0) fL MCH (25.0-34.0) pg MCHC (32.0-36.0) g/dL RDW Std Deviation (36.4-46.3) fL RDW Coeff of Violetta (11.5-14.5) % Plt Count (130-400) K/uL MPV (9.4-12.4) fL Immature Gran % (Auto) % Neut % (Auto) % Lymph % (Auto) % [place] % (Auto) % Eos % (Auto) % Baso % (Auto) % Neut # (Auto) (1.4-6.5) K/uL Lymph # (Auto) (1.2-3.4) K/uL [place] # (Auto) (0.24-0.82) K/uL Eos # (Auto) (0-0.50) K/uL Baso # (Auto) (0-0.2) K/uL Immature Gran # (Auto) (0.00-0.02) K/uL Absolute Nucleated RBC (0-0) K/uL Nucleated RBC % (auto) % Platelet Estimate (Normal) Polychromasia Tear Drop Cells VBG pH (7.36-7.41) VBG pCO2 (38-50) mmHg VBG pO2 mmHg VBG HCO3 mmol/L VBG O2 Saturation % VBG Base Excess mEq/L Sodium (136-145) mmol/L Potassium (3.5-5.1) mmol/L Chloride (98-107) mmol/L Carbon Dioxide (21-32) mmol/L Anion Gap (3-11) BUN (6-23) mg/dl Creatinine (0.6-1.4) mg/dl Est Cr Clr Drug Dosing ml/min Est GFR ( Amer) ml/min Est GFR (Non-Af Amer) ml/min BUN/Creatinine Ratio (10-20) Glucose (70-99(Fasting)) mg/dl POC Glucose > 600 H* (70-99) mg/dl Calcium (8.5-10.1) mg/dl Phosphorus (2.5-4.9) mg/dl Magnesium (1.7-2.4) mg/dl Total Bilirubin (0.2-1.0) mg/dl AST (13-39) U/L ALT (7-52) U/L Alkaline Phosphatase (34-104) U/L Total Protein (6.0-8.3) gm/dl Albumin (3.4-5.0) gm/dl Globulin (2.5-4.0) gm/dl Albumin/Globulin Ratio (0.9-2) TSH 2.140 (0.300-4.500) uIu/ml Urine Color Yellow Urine Appearance Clear (Clear) Urine pH 5.5 (4.5-7.5) Ur Specific [place] 1.029 (1.000-1.030) Urine Protein Negative (Negative) Urine Glucose (UA) 3+ H (Negative) Urine Ketones Negative (Negative) Urine Blood 1+ H (Negative) Urine Nitrite Negative (Negative) Urine Bilirubin Negative (Negative) Urine Urobilinogen Negative (Negative) Ur Leukocyte Esterase Negative (Negative) Urine WBC (Auto) 0 (0-5) /hpf Urine RBC (Auto) 0-4 (0-4) /hpf U Hyaline Cast (Auto) 0 (0-5) /lpf U Epithel Cells (Auto) 0-5 (0-5) /lpf Urine Bacteria (Auto) Negative (Negative) SARS-CoV-2, RNA, NAAT (NEGATIVE) 07/26/22 07/26/22 07/26/22 Range/Units 16:12 16:12 17:21 WBC (4.8-10.8) K/ul RBC (4.63-6.08) M/uL Hgb (14.0-18.0) g/dl Hct (40.1-51.0) % MCV (80.0-100.0) fL MCH (25.0-34.0) pg MCHC (32.0-36.0) g/dL RDW Std Deviation (36.4-46.3) fL RDW Coeff of Violetta (11.5-14.5) % Plt Count (130-400) K/uL MPV (9.4-12.4) fL Immature Gran % (Auto) % Neut % (Auto) % Lymph % (Auto) % [place] % (Auto) % Eos % (Auto) % Baso % (Auto) % Neut # (Auto) (1.4-6.5) K/uL Lymph # (Auto) (1.2-3.4) K/uL [place] # (Auto) (0.24-0.82) K/uL Eos # (Auto) (0-0.50) K/uL Baso # (Auto) (0-0.2) K/uL Immature Gran # (Auto) (0.00-0.02) K/uL Absolute Nucleated RBC (0-0) K/uL Nucleated RBC % (auto) % Platelet Estimate (Normal) Polychromasia Tear Drop Cells VBG pH 7.41 (7.36-7.41) VBG pCO2 29 L (38-50) mmHg VBG pO2 14 mmHg VBG HCO3 18 mmol/L VBG O2 Saturation < 60.0 % VBG Base Excess -5.0 mEq/L Sodium 126 L (136-145) mmol/L Potassium 4.3 (3.5-5.1) mmol/L Chloride 97 L (98-107) mmol/L Carbon Dioxide 18 L (21-32) mmol/L Anion Gap 11 (3-11) BUN 23 (6-23) mg/dl Creatinine 1.49 H (0.6-1.4) mg/dl Est Cr Clr Drug Dosing 46.3 ml/min Est GFR ( Amer) 53.6 ml/min Est GFR (Non-Af Amer) 46.2 ml/min BUN/Creatinine Ratio 15.4 (10-20) Glucose 639 H* (70-99(Fasting)) mg/dl POC Glucose 541 H* (70-99) mg/dl Calcium 8.9 (8.5-10.1) mg/dl Phosphorus 3.1 (2.5-4.9) mg/dl Magnesium 1.5 L (1.7-2.4) mg/dl Total Bilirubin (0.2-1.0) mg/dl AST (13-39) U/L ALT (7-52) U/L Alkaline Phosphatase (34-104) U/L Total Protein (6.0-8.3) gm/dl Albumin (3.4-5.0) gm/dl Globulin (2.5-4.0) gm/dl Albumin/Globulin Ratio (0.9-2) TSH (0.300-4.500) uIu/ml Urine Color Urine Appearance (Clear) Urine pH (4.5-7.5) Ur Specific [place] (1.000-1.030) Urine Protein (Negative) Urine Glucose (UA) (Negative) Urine Ketones (Negative) Urine Blood (Negative) Urine Nitrite (Negative) Urine Bilirubin (Negative) Urine Urobilinogen (Negative) Ur Leukocyte Esterase (Negative) Urine WBC (Auto) (0-5) /hpf Urine RBC (Auto) (0-4) /hpf U Hyaline Cast (Auto) (0-5) /lpf U Epithel Cells (Auto) (0-5) /lpf Urine Bacteria (Auto) (Negative) SARS-CoV-2, RNA, NAAT (NEGATIVE) 07/26/22 07/26/22 07/26/22 Range/Units 18:23 18:23 19:24 WBC (4.8-10.8) K/ul RBC (4.63-6.08) M/uL Hgb (14.0-18.0) g/dl Hct (40.1-51.0) % MCV (80.0-100.0) fL MCH (25.0-34.0) pg MCHC (32.0-36.0) g/dL RDW Std Deviation (36.4-46.3) fL RDW Coeff of Violetta (11.5-14.5) % Plt Count (130-400) K/uL MPV (9.4-12.4) fL Immature Gran % (Auto) % Neut % (Auto) % Lymph % (Auto) % [place] % (Auto) % Eos % (Auto) % Baso % (Auto) % Neut # (Auto) (1.4-6.5) K/uL Lymph # (Auto) (1.2-3.4) K/uL [place] # (Auto) (0.24-0.82) K/uL Eos # (Auto) (0-0.50) K/uL Baso # (Auto) (0-0.2) K/uL Immature Gran # (Auto) (0.00-0.02) K/uL Absolute Nucleated RBC (0-0) K/uL Nucleated RBC % (auto) % Platelet Estimate (Normal) Polychromasia Tear Drop Cells VBG pH (7.36-7.41) VBG pCO2 (38-50) mmHg VBG pO2 mmHg VBG HCO3 mmol/L VBG O2 Saturation % VBG Base Excess mEq/L Sodium (136-145) mmol/L Potassium (3.5-5.1) mmol/L Chloride (98-107) mmol/L Carbon Dioxide (21-32) mmol/L Anion Gap (3-11) BUN (6-23) mg/dl Creatinine (0.6-1.4) mg/dl Est Cr Clr Drug Dosing ml/min Est GFR ( Amer) ml/min Est GFR (Non-Af Amer) ml/min BUN/Creatinine Ratio (10-20) Glucose (70-99(Fasting)) mg/dl POC Glucose 503 H* 399 H* (70-99) mg/dl Calcium (8.5-10.1) mg/dl Phosphorus (2.5-4.9) mg/dl Magnesium (1.7-2.4) mg/dl Total Bilirubin (0.2-1.0) mg/dl AST (13-39) U/L ALT (7-52) U/L Alkaline Phosphatase (34-104) U/L Total Protein (6.0-8.3) gm/dl Albumin (3.4-5.0) gm/dl Globulin (2.5-4.0) gm/dl Albumin/Globulin Ratio (0.9-2) TSH (0.300-4.500) uIu/ml Urine Color Urine Appearance (Clear) Urine pH (4.5-7.5) Ur Specific [place] (1.000-1.030) Urine Protein (Negative) Urine Glucose (UA) (Negative) Urine Ketones (Negative) Urine Blood (Negative) Urine Nitrite (Negative) Urine Bilirubin (Negative) Urine Urobilinogen (Negative) Ur Leukocyte Esterase (Negative) Urine WBC (Auto) (0-5) /hpf Urine RBC (Auto) (0-4) /hpf U Hyaline Cast (Auto) (0-5) /lpf U Epithel Cells (Auto) (0-5) /lpf Urine Bacteria (Auto) (Negative) SARS-CoV-2, RNA, NAAT NEGATIVE (NEGATIVE) 07/26/22 07/26/22 07/26/22 Range/Units 19:51 20:03 20:18 WBC (4.8-10.8) K/ul RBC (4.63-6.08) M/uL Hgb (14.0-18.0) g/dl Hct (40.1-51.0) % MCV (80.0-100.0) fL MCH (25.0-34.0) pg MCHC (32.0-36.0) g/dL RDW Std Deviation (36.4-46.3) fL RDW Coeff of Violetta (11.5-14.5) % Plt Count (130-400) K/uL MPV (9.4-12.4) fL Immature Gran % (Auto) % Neut % (Auto) % Lymph % (Auto) % [place] % (Auto) % Eos % (Auto) % Baso % (Auto) % Neut # (Auto) (1.4-6.5) K/uL Lymph # (Auto) (1.2-3.4) K/uL [place] # (Auto) (0.24-0.82) K/uL Eos # (Auto) (0-0.50) K/uL Baso # (Auto) (0-0.2) K/uL Immature Gran # (Auto) (0.00-0.02) K/uL Absolute Nucleated RBC (0-0) K/uL Nucleated RBC % (auto) % Platelet Estimate (Normal) Polychromasia Tear Drop Cells VBG pH 7.41 (7.36-7.41) VBG pCO2 (38-50) mmHg VBG pO2 mmHg VBG HCO3 mmol/L VBG O2 Saturation % VBG Base Excess mEq/L Sodium 133 L (136-145) mmol/L Potassium 3.4 L D (3.5-5.1) mmol/L Chloride 103 (98-107) mmol/L Carbon Dioxide 22 (21-32) mmol/L Anion Gap 8 (3-11) BUN 21 (6-23) mg/dl Creatinine 1.27 (0.6-1.4) mg/dl Est Cr Clr Drug Dosing 54.3 ml/min Est GFR ( Amer) 65.0 ml/min Est GFR (Non-Af Amer) 56.1 ml/min BUN/Creatinine Ratio 16.5 (10-20) Glucose 343 H* (70-99(Fasting)) mg/dl POC Glucose 327 H* (70-99) mg/dl Calcium 8.6 (8.5-10.1) mg/dl Phosphorus 2.6 (2.5-4.9) mg/dl Magnesium 1.6 L (1.7-2.4) mg/dl Total Bilirubin (0.2-1.0) mg/dl AST (13-39) U/L ALT (7-52) U/L Alkaline Phosphatase (34-104) U/L Total Protein (6.0-8.3) gm/dl Albumin (3.4-5.0) gm/dl Globulin (2.5-4.0) gm/dl Albumin/Globulin Ratio (0.9-2) TSH (0.300-4.500) uIu/ml Urine Color Urine Appearance (Clear) Urine pH (4.5-7.5) Ur Specific [place] (1.000-1.030) Urine Protein (Negative) Urine Glucose (UA) (Negative) Urine Ketones (Negative) Urine Blood (Negative) Urine Nitrite (Negative) Urine Bilirubin (Negative) Urine Urobilinogen (Negative) Ur Leukocyte Esterase (Negative) Urine WBC (Auto) (0-5) /hpf Urine RBC (Auto) (0-4) /hpf U Hyaline Cast (Auto) (0-5) /lpf U Epithel Cells (Auto) (0-5) /lpf Urine Bacteria (Auto) (Negative) SARS-CoV-2, RNA, NAAT (NEGATIVE) Administered Medications Insulin Human Regular 250 (units/ Sodium Chloride) 250 mls @ 7.8 mls/hr IV .Q24H JODI; Protocol Stop: 08/25/22 15:29 Last Titration: 07/26/22 19:35 Dose: 7.8 units/hr, 7.8 mls/hr Documented By: SILVIO Co-signed By: NICOLE Titration: 07/26/22 18:23 Dose: 9.8 units/hr, 9.8 mls/hr Documented By: SILVIO Co-signed By: JUANIS Titration: 07/26/22 17:28 Dose: 9.8 units/hr, 9.8 mls/hr Documented By: SILVIO Co-signed By: KT Admin: 07/26/22 16:12 Dose: 8.2 units/hr, 8.2 mls/hr Documented By: SILVIO Co-signed By: NORI Insulin Aspart (Insulin Aspart Per Unit) 0 units SC ACHS JODI Stop: 08/25/22 16:29 Last Admin: 07/26/22 17:40 Dose: Not Given Documented By: SILVIO Co-signed By: CCM Discontinued Medications Sodium Chloride (Nss 1000ml) 1,000 mls @ 999 mls/hr IV .Q1H1M JODI Stop: 07/26/22 15:45 Last Infusion: 07/26/22 15:57 Dose: 0 mls/hr Documented By: Admin: 07/26/22 14:52 Dose: 999 mls/hr Documented By: LEONARD Parenteral Electrolytes (Normosol-R) 1,000 mls @ 250 mls/hr IV .Q4H JODI Stop: 08/25/22 15:29 Last Infusion: 07/26/22 20:31 Dose: 0 mls/hr Documented By: Admin: 07/26/22 16:26 Dose: 250 mls/hr Documented By: Sodium Chloride (Nss 1000ml) 1,000 mls @ 999 mls/hr IV .Q1H1M ONE Stop: 07/26/22 16:36 Last Admin: 07/26/22 16:22 Dose: Not Given Documented By: SILVIO Magnesium Sulfate/Dextrose (Magnesium Sulfate / D5w) 1 gm in 100 mls @ 50 mls/hr IV ONE ONE Stop: 07/26/22 19:00 Last Admin: 07/26/22 19:37 Dose: 50 mls/hr Documented By: SILVIO Insulin Human Regular (Novolin-R Bolus From Bag) 8.2 units IV ONE ONE Stop: 07/26/22 15:46 Last Admin: 07/26/22 16:13 Dose: 8.2 units Documented By: SILVIO Co-signed By: NORI Darby (Stat Iv Infusion Titration Per Protocol) 1 each N/A NOW STA Stop: 07/26/22 15:29 Last Admin: 07/26/22 16:38 Dose: 1 each Documented By: SILVIO Darby (Hhs Goal Range 250-350 Mg/Dl) 1 each N/A ONE ONE Stop: 07/26/22 15:29 Last Admin: 07/26/22 16:38 Dose: 1 each Documented By: SILVIO Darby Information (Dc All Previously Ordered Diabetes Meds) 1 each N/A ONE ONE Stop: 07/26/22 15:29 Last Admin: 07/26/22 16:37 Dose: 1 each Documented By: SILVIO Imaging Data Radiologist's Impression: Chest X-Ray 07/26/22 14:33 SINGLE VIEW CHEST CLINICAL HISTORY: Generalized weakness. Change in mental status. FINDINGS: An AP, portable, upright chest radiograph is compared to study dated 03/01/2022. The examination is degraded by portable technique and apical lordotic positioning. The heart is enlarged noting atherosclerotic calcification of the thoracic aorta. The pulmonary vasculature is noncongested. There is mild elevation of the left hemidiaphragm with bibasilar atelectasis. The lungs and pleural spaces are otherwise clear. No pneumothorax is seen. The skeletal structures are osteopenic. The bony thorax is grossly intact. Arthritic change is seen in the shoulders. IMPRESSION: Mild cardiomegaly with no active disease in the chest. ACT 112: Negative or not required by law. Electronically signed by: Scott Yepez M.D. 07/26/2022 2:59 PM Discharge Plan Visit Data Chief Complaint: Hyperglycemia ED Provider: Adrian Fitch Discharge Problem: Acute hyperglycemia, Pancytopenia Patient Disposition: Admitted As Inpatient Forms Stand Alone Forms: [facility] Prescriptions Prescriptions: No Action citalopram [Celexa] 10 mg tablet 10 mg PO QAM omeprazole 40 mg capsule,delayed release(DR/EC) 40 mg PO QAM lactulose 10 gram/15 mL solution See Rx Instructions .ROUTE .COMPLEX PRN (Reason: Constipation) Rx Instructions: 1 tablespoon daily per pt PRN; allopurinol 100 mg Tablet 100 mg PO BID Xifaxan 550 mg tablet 550 mg PO BID Label Comments: Part of the "FOFANA" regimen to remove impurities mirtazapine 30 mg tablet 30 mg PO HS spironolactone 25 mg tablet 25 mg PO QAM furosemide 20 mg tablet 20 mg PO QAM finasteride 5 mg Tablet 5 mg PO QAM Referrals Referrals: Francisco Cisse MD [Primary Care Provider] -
[2022-07-26] MEDS ORDERED: SODIUM CHLORIDE 0.9% 1000ML 1,000 ML IV SCH ×2 (14:45→22:30)
--- NOTE | 2022-07-26 15:00 | XRay Report ---
SINGLE VIEW CHEST CLINICAL HISTORY: Generalized weakness. Change in mental status. FINDINGS: An AP, portable, upright chest radiograph is compared to study dated 03/01/2022. The examina tion is degraded by portable technique and apical lordotic positioning. The heart is enlarged noting atherosclerotic calcification of the thoracic aorta. The pulmonary vasculature is noncongested. There is mild elevation of the left hemidiaphragm with bibasilar atelectasis. The lungs and pleural spaces are otherwise clear. No pneumothorax is seen. The skeletal structures are osteopenic. The bony thora x is grossly intact. Arthritic change is seen in the shoulders. IMPRESSION: Mild cardiomegaly with no active disease in the chest. ACT 112: Negative or not required by law. Electronically signed by: Scott Yepez M.D. 07/26/2022 2:59 PM
[2022-07-26 15:10] LABS: Albumin Globulin Ratio 0.9 (0.9-2); Albumin Level 2.8 gm/dl (3.4-5.0); BUN Creatinine Ratio 14.7 (10-20); Bilirubin,Total 3.9 mg/dl (0.2-1.0); Creatinine Clr Calc Pharmacy 44.2 ml/min; Est GFR (African American) 50.7 ml/min; Est GFR (Non-African American) 43.7 ml/min; Potassium 4.5 mmol/L (3.5-5.1); Total Protein 5.8 gm/dl (6.0-8.3)
[2022-07-26 15:15] LABS: Appearance Urine Clear (Clear); Bacteria Urine Automated Negative (Negative); Bilirubin Urine Negative (Negative); Blood Urine 1+ (Negative); Cast Urine Automated 0 /lpf (0-5); Color Urine Yellow; Epithelial Cell Urine Auto 0-5 /lpf (0-5); Glucose Urine UA 3+ (Negative); Ketones Urine Negative (Negative); Leukocyte Esterase Urine Negative (Negative); Nitrite Urine Negative (Negative); Protein Urine Negative (Negative); RBC Urine Automated 0-4 /hpf (0-4); Specific Gravity Urine 1.029 (1.000-1.030); Urobilinogen Urine Negative (Negative); WBC Urine Automated 0 /hpf (0-5); pH Urine 5.5 (4.5-7.5)
[2022-07-26] MEDS ORDERED: PHARMACY GLYCEMIC MGMT CONSULT PRN ×2 (15:28→21:34)
[2022-07-26] MEDS ORDERED: STAT IV Infusion **Titration per Protocol STA ×2 (15:28→21:34)
[2022-07-26] MEDS ORDERED: DC ALL PREVIOUSLY ORDERED DIABETES MEDS ONE (15:28)
[2022-07-26] MEDS ORDERED: HHS GOAL RANGE 250-350 mg/dl ONE ×2 (15:28→21:34)
[2022-07-26] MEDS ORDERED: INSULIN REGULAR 250 UNITS in SODIUM CHLORIDE 0.9% 247.5 ML IV SCH ×2 (15:30→21:34)
[2022-07-26] MEDS ORDERED: PENDING D5 1/2NS+20mEq KCL IVF SCH ×2 (15:30→21:34)
[2022-07-26] MEDS ORDERED: PENDING 1/2NSS+20mEq KCL IVF SCH ×2 (15:30→21:34)
[2022-07-26] MEDS ORDERED: SODIUM CHLORIDE 0.9% 1000ML 1,000 ML IV ONE (15:36)
[2022-07-26] MEDS ORDERED: NovoLIN-R BOLUS FROM BAG IV ONE (15:45)
[2022-07-26] MEDS ORDERED: CARBOHYDRATES FOR HYPOGLYCEMIA PO PRN (16:00)
[2022-07-26] MEDS ORDERED: GLUCAGON FOR INJ 1 MG VIAL IM PRN (16:00)
[2022-07-26] MEDS ORDERED: DEXTROSE 50% 50 ML SYRINGE IV PRN (16:00)
[2022-07-26] MEDS ORDERED: GLUCOSE 10 TAB/TUBE PO PRN (16:00)
[2022-07-26] MEDS ORDERED: GLUCOSE 40% GEL 15 GM TUBE PO PRN (16:00)
[2022-07-26 16:03] LABS: Basophils # (auto) 0.02 K/uL (0-0.2); Basophils % (auto) 0.7 %; Eosinophils # (auto) 0.16 K/uL (0-0.50); Eosinophils % (auto) 5.4 %; Hematocrit (blood only) 22.1 % (40.1-51.0); Hemoglobin 7.5 g/dl (14.0-18.0); Immature Granulocytes # (auto) 0.05 K/uL (0.00-0.02); Immature Granulocytes % (auto) 1.7 %; Lymphocytes # (auto) 0.66 K/uL (1.2-3.4); Lymphocytes % (auto) 22.4 %; Mean Corpuscular Hemoglobin 33.9 pg (25.0-34.0); Mean Corpuscular Hgb Conc 33.9 g/dL (32.0-36.0); Mean Platelet Volume 11.3 fL (9.4-12.4); Monocytes # (auto) 0.17 K/uL (0.24-0.82); Monocytes % (auto) 5.8 %; Neutrophils # (auto) 1.89 K/uL (1.4-6.5); Nucleated RBC # (auto) 0.03 K/uL (0-0); Platelet Count 65 K/uL (130-400); Platelet Estimate Decreased (Normal); Polychromasia 1+; RDW Coefficient of Variation 17.8 % (11.5-14.5); RDW Standard Deviation 62.8 fL (36.4-46.3); Red Blood Count 2.21 M/uL (4.63-6.08); Tear Drop Cells 1+; White Blood Count 2.95 K/ul (4.8-10.8)
--- NOTE | 2022-07-26 16:13 | History & Physical Report ---
Date of Service July 26, 2022 Assessment & Plan (1) Hyperosmolar hyperglycemic state (HHS): (2) T2DM (type 2 diabetes mellitus): (3) Liver disease: (4) Esophageal varices: (5) Prostate cancer: (6) CKD (chronic kidney disease) stage 3, GFR 30-59 ml/min: (7) Anemia of chronic disease: (8) GERD (gastroesophageal reflux disease): (9) Cirrhosis: Plan Mr. Luis Hale is a 72 year old male who presented to the [facility] from home with increased thirst and some blurry vision, diagnosed with HHS. On arrival, he was found to have a serum glucose of 744 and Na+ level of 125. The patient has a quite complex PMH that includes: DM2 (diet management), liver [place] [facility] [place] s/p TIPS, prostate CA (2020 [place] 3+3 on Eligard s/p XRT), esophageal varices, Anemia of Chronic disease, GERD, and CKD3. The patient does receive infrequent abdominal paracentesis. The patient is AAOx4 and able to converse in no apparent distress. He denies any PHELPS, dizziness, CP, palpitations, N/V/D, muscle movement changes, concentration changes, appetite changes. Patient will be admitted to medicine service for further evaluation and management of his hyperglycemia and other ailments. Care coordinated with Dr. Paul. HHS DM2 Current DM managed by diet, does not take any antidiabetic agents or insulin Pseudohyponatremia d/t hyperglycemia: Corrected Na+ 138; current 125 On Insulin gtt; continue until glucose is 250-300. Received 1 L Normosol; then switch to 1/2 NS + 20 K+ mEq; follow DKA order set with Q6 labs. Glycemic Pharmacy involved; greatly appreciate their assistance. Anion Gap: 12. D/t patients cirrhosis and diuretic use, anticipate his Anion Gap will close quickly. No ketone overflow in urine noted K+ 4.5, VBG pH 7.41 Mg+ 1.5 --> 1 G ordered Obtain A1C NPO for now; re-evaluate once Anion Gap is closed. Superintendent Transportation consultation placed. Pt has indicated that he drinks soda and does not follow a diabetic diet. Liver Disease Cirrhosis of Liver Esophageal varicies [place] [facility] [place] Liver cirrhosis secondary to D[place] Follows with Dr. Moore for Palliative Medicine; last telemedicine appt 07/24. Takes Lactulose PRN; continue Check LFTs in AM Check PT/INR in AM Prostate Cancer Diagnosed 2019 [place] 3+3 on Eligard s/p XRT CKD 3 Anemia of chronic disease Hgb 7.5 Recheck CBC in AM Creatinine 1.56 GERD Stable; Continue Omeprazole Disposition: PCP: Dr. 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 History of Present Illness Chief Complaint: increased thirsdt Primary Care Provider: Francisco Cisse MD Mr. Luis Hale is a 72 year old male who presented to the [facility] from home with increased thirst and some blurry vision, diagnosed with HHS. On arrival, he was found to have a serum glucose of 744 and Na+ level of 125. The patient has a quite complex PMH that includes: DM2 (diet management), liver cirrhosis [place] [facility] [place] s/p TIPS, prostate CA (2019 [place] 3+3 on Eligard s/p XRT), esophageal varices, Anemia of Chronic disease, GERD, and CKD3. The patient does receive infrequent abdominal paracentesis. The patient is AAOx4 and able to converse in no apparent distress. He denies any PHELPS, dizziness, CP, palpitations, N/V/D, muscle movement changes, concentration changes, appetite changes. Patient will be admitted to medicine service for further evaluation and management of his hyperglycemia and other ailments. Care coordinated with Dr. Paul. Allergies Allergy/AdvReac Type Severity Reaction Status Date / Time No Known Allergies Allergy Mild Verified 04/12/22 08:58 Home Medications Medication Instructions Recorded Confirmed Type citalopram 10 mg tablet (Celexa) 10 mg PO QAM 03/24/20 07/26/22 History omeprazole 40 mg capsule,delayed 40 mg PO QAM 03/24/20 07/26/22 History release allopurinol 100 mg tablet 100 mg PO BID 05/16/20 07/26/22 History rifaximin 550 mg tablet (Xifaxan) 550 mg PO BID 12/08/20 07/26/22 History finasteride 5 mg tablet 5 mg PO QAM 11/03/21 07/26/22 History lactulose 10 gram/15 mL oral See Rx Instructions .Route 03/13/22 07/26/22 History solution .COMPLEX PRN Constipation furosemide 20 mg tablet 20 mg PO QAM 07/26/22 07/26/22 History mirtazapine 30 mg tablet 30 mg PO HS 07/26/22 07/26/22 History spironolactone 25 mg tablet 25 mg PO QAM 07/26/22 07/26/22 History Past Med/Surg History Medical History (Updated 07/26/22 @ 17:27 by JEFF Randall) Anemia Anemia of chronic disease Cardiac cirrhosis Cirrhosis 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 CKD (chronic kidney disease) stage 3, GFR 30-59 ml/min DVT prophylaxis Esophageal varices Esophageal varices GAVE (gastric antral vascular ectasia) GERD (gastroesophageal reflux disease) Gout NO ISSUES CURRENTLY History of panic attacks Hyperosmolar hyperglycemic state (HHS) Hypertension Prostate cancer (11/10/20) Psoriasis Rectal bleeding Shortness of breath Upper GI bleed Surgical History History of abdominal paracentesis multiple---pt states last was 6 months ago History of colonoscopy with polypectomy History of esophagogastroduodenoscopy (EGD) last 10/25 revealed grade 2 esophageal varices, grade 1 gastric varices STABLE History of prostate biopsy malignant History of tonsillectomy and adenoidectomy S/P TIPS (transjugular intrahepatic portosystemic shunt) Family History Father , "3/4 liver gone due to drinking" Colorectal cancer, Onset Age: 63 Mother Lung cancer Daughter Cancer cervical and thyroid cancers Ovarian cancer Other No family history of adverse response to anesthesia 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 Smoking Status: Never smoker Second Hand Exposure: No; Hx Alcohol Use: No Hx Substance Use: No Preferred Language: Azeri Communication Ability: Effective Visual Impairment: No Limitations Hearing Ability: Normal Salon Customer Experience Specialist Required: No Beliefs That Will Affect Care: None marital status: Current Living Situation: Spouse 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 How many Children do You have: 6 How many Children do You have Comment: one , eldest daughter in her sleep from seizure disorder Feels Safe at Home: Yes Childhood Exposure to Second-Hand Smoke: Yes Diet Comment: "I watch my sugar, average fasting is 140 mg/dl" caffeine: Yes (cola, sugar free, decaf) during the past year weight has: remained stable Dental Care, Regularly: No Physical Activity Frequency: Does not Exercise Seatbelt Use: always Sunscreen Use: Yes Assistive Devices: Glasses Review of Systems Review of Systems: Neuro: (-) Falls, trauma, slurred speech HEENT: (-) PHELPS, dizziness, dysphagia, visual or auditory changes CV: (-) CP, palpitations, swelling Resp: (-) SOB GI: (+) increased thirst (-) appetite changes, N/V/D, bowel changes : (+) polyuria Skin:(-) new rashes . Psych: (-) anxiety, depression Physical Exam Physical Exam: Neuro: AAOx4, PERRLA, no aphagia, memory changes, CNII-XII grossly intact HEENT: head normocephalic, moist mucus membranes CV: S1/S2, (-) M/G/R, (-) edema, cap refill < 3 seconds Resp: Lungs CTA in all brand. On RA GI: Abdomen S/NT/ND, Ax4 bowel sounds, (-) CVA tenderness Musculoskeletal: 5/5 B/L UE strength, 5/5 B/L LE strength. No gait disturbance Skin: (-) erythema. (+) generalized red spots from liver cirrhosis on his legs and arms (-) Jaundice Psych: euthymic mood Results & Data Results & Data ([facility]) Vital Signs (Past 12 Hours) Vital Signs Temp Pulse Resp BP Pulse Ox O2 Del Method 07/26/22 14:33 98 Room Air 07/26/22 14:26 37.2 C 62 22 142/58 H 98 Room Air Laboratory Results Short CBC 07/26/22 Range/Units 14:25 WBC 2.95 L (4.8-10.8) K/ul Hgb 7.5 L (14.0-18.0) g/dl Hct 22.1 L (40.1-51.0) % Plt Count 65 L (130-400) K/uL BMP 07/26/22 14:25 Sodium 125 L Potassium 4.5 Chloride 96 L Carbon Dioxide 17 L BUN 23 Creatinine 1.56 H Glucose 744 H* Calcium 9.0 Liver Function 07/26/22 Range/Units 14:25 Total Bilirubin 3.9 H (0.2-1.0) mg/dl AST 26 (13-39) U/L ALT 18 (7-52) U/L Alkaline Phosphatase 172 H (34-104) U/L Albumin 2.8 L (3.4-5.0) gm/dl Urine 07/26/22 Range/Units 14:50 Urine Color Yellow Urine Appearance Clear (Clear) Urine pH 5.5 (4.5-7.5) Ur Specific Homer 1.029 (1.000-1.030) Urine Protein Negative (Negative) Urine Glucose (UA) 3+ H (Negative) Diagnostic Findings Chest X-Ray 07/26/22 14:33 SINGLE VIEW CHEST CLINICAL HISTORY: Generalized weakness. Change in mental status. FINDINGS: An AP, portable, upright chest radiograph is compared to study dated 03/01/2022. The examination is degraded by portable technique and apical lordotic positioning. The heart is enlarged noting atherosclerotic calcification of the thoracic aorta. The pulmonary vasculature is noncongested. There is mild elevation of the left hemidiaphragm with bibasilar atelectasis. The lungs and pleural spaces are otherwise clear. No pneumothorax is seen. The skeletal structures are osteopenic. The bony thorax is grossly intact. Arthritic change is seen in the shoulders. IMPRESSION: Mild cardiomegaly with no active disease in the chest. ACT 112: Negative or not required by law. Electronically signed by: Scott Yepez M.D. 07/26/2022 2:59 PM ECG Additional Comments: Sinus Bradycardia Vent. Rate : 059 BPM P-R Int : 190 ms QRS Dur : 092 ms QT Int : 466 ms QTc Int : 461 ms Code Status & VTE Plan Code Status Full Code in the event of cardiac or respiratory arrest VTE Prophylaxis Plan VTE Prophylaxis will be ordered: Yes Supervising Physician Co-Signing Physician Notes Patient is a 72-year-old male with history of diabetes mellitus, Dalton cirrhosis, GAVE, prostate cancer, psoriasis, esophageal varices, portal vein thrombosis, CKD stage III and other medical problems presents with history of increased thirst, transient blurry vision and polyuria. Patient states that he was previously on oral medications for diabetes but currently off medications and diet control for diabetes mellitus. He denies any chest pain, shortness of breath, nausea, vomiting, abdominal pain, dizziness, headache. He admits to not being compliant with diabetic diet. Please review HPI for complete details of presentation. Blood work suggestive of pancytopenia, WBC 2.95, hemoglobin 7.5, platelet 65, VBG pH 7.4, PCO2 29, sodium 126--corrected 138, chloride 97, bicarbonate 18, anion gap 12, creatinine 1.56, glucose 744, total bilirubin 3.9, magnesium 1.5, AST 26, ALT 18, alk phos 172, TSH 2.1. Urinalysis showed no ketones and no signs of UTI. Chest x-ray showed mild cardiomegaly with no active disease in the chest. EKG showed sinus bradycardia, nonspecific ST-T wave abnormality, QTC 461. On exam patient is moderately built and nourished, no apparent distress, normocephalic atraumatic, EOMI, normal breath sounds, clear to auscultation, S1-S2, no murmur, no pedal edema, abdomen soft, distended, nontender, normal bowel sounds, alert, awake, oriented, grossly no focal deficits,+ spider nevi. Patient is admitted for management of HHS, uncontrolled diabetes mellitus. Agree with IV insulin, IV fluids. Will follow HHS protocol. Glycemic pharmacist consulted. Update HbA1c. Replace electrolytes as needed. Also consulted public health educator. Monitor hemoglobin and for any signs of bleeding. Obtain ultrasound of to rule out ascites. Consider GI evaluation if needed. Avoid nephrotoxic agents for LUCRETIA. Hold diuretics for now. Monitor LFTs. Check INR. Currently denies blurry vision. Will consider CT evaluation if any recurrence of your blurry vision. Avoid anticoagulation due to anemia, thrombocytopenia. Monitor volume status closely given history of cirrhosis. I personally reviewed the record. Patient is interviewed and examined at bedside. Patient's care is coordinated with Shaye Sy PA-C. Please refer to the documentation above for details of patient's presentation and for discussion of other issues. (1) Cirrhosis Ascites presence: without ascites Hepatic cirrhosis type: unspecified hepatic cirrhosis Qualified Code(s): K74.60 - Unspecified cirrhosis of liver (2) GERD (gastroesophageal reflux disease) Esophagitis presence: esophagitis presence not specified Qualified Code(s): K21.9 - Gastro-esophageal reflux disease without esophagitis
[2022-07-26 16:24] LABS: HCO3 VBG 18 mmol/L; Oxygen Saturation VBG < 60.0 %; PCO2 VBG 29 mmHg (38-50); PO2 VBG 14 mmHg; pH VBG 7.41 (7.36-7.41)
[2022-07-26] MEDS: NORMOSOL-R 1,000 ML IV SCH ×2 (16:26→20:37)
--- NOTE | 2022-07-26 16:46 | Electrocardiogram Report ---
Test Reason : Blood Pressure : / mmHG Vent. Rate : 059 BPM Atrial Rate : 059 BPM P-R Int : 190 ms QRS Dur : 092 ms QT Int : 466 ms P-R-T Axes : 055 007 000 degrees QTc Int : 461 ms Sinus bradycardia Nonspecific ST and T wave abnormality Abnormal ECG When compared with ECG of 03-MAR-2022 05:48, Premature ventricular complexes are no longer Present Confirmed by Pedro Carlson ([id number]) on 07/26/2022 4:46:16 PM Referred By: REFERRED SELF Confirmed By:Pedro Carlson
[2022-07-26 16:47] LABS: BUN Creatinine Ratio 15.4 (10-20); Calcium 8.9 mg/dl (8.5-10.1); Creatinine Clr Calc Pharmacy 46.3 ml/min; Est GFR (African American) 53.6 ml/min; Est GFR (Non-African American) 46.2 ml/min; Magnesium 1.5 mg/dl (1.7-2.4); Phosphorus 3.1 mg/dl (2.5-4.9); Potassium 4.3 mmol/L (3.5-5.1)
[2022-07-26] MEDS ORDERED: MAGNESIUM SULFATE / D5W 1 GM/100 ML BAG IV ONE ×2 (17:01→21:19)
[2022-07-26] MEDS: INSULIN ASPART PER UNIT SC SCH ×2 (17:40→21:42)
[2022-07-26] MEDS ORDERED: SODIUM CHLOR 0.45% + 20MEQ KCL 20 MEQ/1,000 ML BAG IV SCH (20:00)
[2022-07-26 20:29] LABS: BUN Creatinine Ratio 16.5 (10-20); Calcium 8.6 mg/dl (8.5-10.1); Creatinine Clr Calc Pharmacy 54.3 ml/min; Est GFR (Non-African American) 56.1 ml/min; Magnesium 1.6 mg/dl (1.7-2.4); Phosphorus 2.6 mg/dl (2.5-4.9); Potassium 3.4 mmol/L (3.5-5.1)
[2022-07-26] MEDS ORDERED: D5W AND 1/2NSS + 20MEQ KCL 20 MEQ/1,000 ML BAG IV SCH (20:45)
[2022-07-26] MEDS ORDERED: POTASSIUM CHLORIDE CRTAB 20 MEQ TABCR PO STA (21:19)
[2022-07-26] MEDS ORDERED: INSULIN ASPART PER UNIT SC SCH (21:34)
[2022-07-26] MEDS ORDERED: LACTULOSE SYRUP 20 GM/30 ML UDC PO PRN (21:52)
[2022-07-26] MEDS: allopurinoL 100 MG TAB PO SCH (22:58)
[2022-07-26] MEDS: MIRTAZAPINE TAB 15 MG TAB PO SCH (22:58)
[2022-07-26] MEDS: rifAXIMin 550 MG TABLET PO SCH (22:59)
[2022-07-27] MEDS ORDERED: LANTUS PER UNIT CHARGE SQ ONE (01:00)
[2022-07-27] MEDS: INSULIN ASPART PER UNIT SC SCH ×6 (04:15→23:32)
[2022-07-27 06:40] LABS: INR 1.2 (0.9-1.1); Prothrombin Time 12.2 Seconds (9.0-12.0)
[2022-07-27 07:22] LABS: Albumin Level 2.6 gm/dl (3.4-5.0); Bilirubin Direct 0.8 mg/dl (0-0.2); Total Protein 5.4 gm/dl (6.0-8.3)
[2022-07-27 07:36] LABS: Estimated Average Glucose 223 mg/dl; Hemoglobin A1C 9.4 % (4.5-5.6)
[2022-07-27 07:38] LABS: Estimated Average Glucose 214 mg/dl; Hemoglobin A1C 9.1 % (4.5-5.6)
[2022-07-27 08:30] LABS: Hematocrit (blood only) 22.5 % (40.1-51.0); Hemoglobin 7.8 g/dl (14.0-18.0); Mean Platelet Volume 11.6 fL (9.4-12.4); Platelet Count 66 K/uL (130-400); White Blood Count 2.99 K/ul (4.8-10.8)
[2022-07-27 08:53] LABS: Mean Corpuscular Hemoglobin 33.8 pg (25.0-34.0); Mean Corpuscular Hgb Conc 34.7 g/dL (32.0-36.0); Mean Corpuscular Volume 97.4 fL (80.0-100.0); RDW Coefficient of Variation 17.9 % (11.5-14.5); RDW Standard Deviation 61.5 fL (36.4-46.3); Red Blood Count 2.31 M/uL (4.63-6.08)
[2022-07-27 09:02] LABS: Albumin Globulin Ratio 0.9 (0.9-2); Albumin Level 2.6 gm/dl (3.4-5.0); Bilirubin,Total 5.2 mg/dl (0.2-1.0); Calcium 8.2 mg/dl (8.5-10.1); Creatinine Clr Calc Pharmacy 54.3 ml/min; Est GFR (Non-African American) 56.1 ml/min; Globulin 2.8 gm/dl (2.5-4.0); Magnesium 1.8 mg/dl (1.7-2.4); Phosphorus 4.1 mg/dl (2.5-4.9); Potassium 4.1 mmol/L (3.5-5.1); Total Protein 5.4 gm/dl (6.0-8.3)
[2022-07-27] MEDS: allopurinoL 100 MG TAB PO SCH ×2 (09:14→20:18)
[2022-07-27] MEDS: FINASTERIDE 5 MG TAB PO SCH (09:14)
[2022-07-27] MEDS: CITALOPRAM 20 MG TAB PO SCH (09:14)
[2022-07-27] MEDS: rifAXIMin 550 MG TABLET PO SCH ×2 (09:14→20:18)
[2022-07-27] MEDS: PANTOprazole 40 MG TAB PO SCH (09:14)
--- NOTE | 2022-07-27 09:14 | Ultrasound Report ---
US abdomen ltd ascites HISTORY: 72 years-old Male ascites check follow-up study in a patient with abdominal ascites COMPARISON: 05/24/2022 TECHNIQUE: Multiple real time sonographic images of the abdomen were obtained assessing grayscale naila earance FINDINGS/IMPRESSION: Trace ascites within the abdominal right lower quadrant. ACT 112: Negative or not required by law. The above report was generated using voice recognition software. It may contain grammatical, syntax o r spelling errors. Electronically signed by: Yovany Gonzalez M.D. 07/27/2022 9:11 AM
--- NOTE | 2022-07-27 09:18 | Pharmacy Report ---
Pharmacy Glycemic Short Note 2 - Date of Service July 27, 2022 - Glycemic Short BSG Results (Last 24 hours): 07/26/22 07/26/22 07/26/22 14:20 14:25 16:06 Glucose 744 H* POC Glucose > 600 H* > 600 H* 07/26/22 07/26/22 07/26/22 16:12 17:21 18:23 Glucose 639 H* POC Glucose 541 H* 503 H* 07/26/22 07/26/22 07/26/22 19:24 20:03 20:18 Glucose 343 H* POC Glucose 399 H* 327 H* 07/26/22 07/26/22 07/26/22 21:15 22:06 23:02 Glucose POC Glucose 333 H* 286 H 222 H 07/27/22 07/27/22 07/27/22 00:06 01:06 02:13 Glucose POC Glucose 177 H 151 H 155 H 07/27/22 07/27/22 07/27/22 04:09 06:11 07:24 Glucose POC Glucose 110 H 165 H 176 H OUTPATIENT ANTIDIABETIC REGIMEN: * None - diet controlled * HbA1c = 9.1% (07/27/22) ASSESSMENT: * 72 yo M admitted secondary to hyperglycemia. Patient found to be in HHS upon presentation. Pharmacy was consulted to transition patient off insulin drip to subcutaneous basal-bolus insulin as well as assist with inpatient glycemic management. Patient has a history of T2DM but is not on any pharmacotherapy at this time. Appears he was on Metformin and Glimepiride in the past with good control. * Initial labs: BSG 744 mg/dL, K 4.5 mmol/L, CO2 17 mmol/L, AG 12, VBG pH 7.41. Received 1 L of NS in ED followed by Normosol at 250 mL/hr x 1 bag. Started on an insulin drip at 8.2 units/hr along with an initial 8.2 unit IV bolus. BSGs improved rapidly: [phone] mg/dL. Was given a 15 unit dose of Lantus around 0100. During overlap of drip and basal, BSGs continued to improve: 151-155-110 mg/dL. Drip was shut off around 0500 and patient was successfully transitioned. * Labs from this AM: BSG 175 mg/dL, K 4.1 mmol/L, CO2 24 mmol/L, AG 5, VBG pH 7.41. * Patient was started on basal bolus insulin based on weight/stress of 2. Started on a clear liquid diet. Likely will need new medications for T2DM upon discharge given A1c. PLAN FOR INPATIENT GLYCEMIC CONTROL: * Basal insulin * Lantus 15 units SC BID * Bolus insulin * NovoLog per scale ACHS or Q6hrs while NPO * Goal Range: Low 110 mg/dL - High 140 mg/dL * Correction Factor: 30 mg/dL/unit * Nutritional / Prandial insulin per carb ratio of 1 unit per 10 grams CHO consumed
[2022-07-27] MEDS: LANTUS PER UNIT CHARGE SQ SCH ×2 (09:19→17:28)
[2022-07-27] MEDS: LACTULOSE SYRUP 10 GM/15 ML BTL 960 ML PO SCH (12:37)
[2022-07-27] MEDS ORDERED: INSULIN HUMAN REGULAR PER UNIT 7 UNITS in SYRINGE 6.93 ML IV ONE (17:15)
--- NOTE | 2022-07-27 18:12 | Hospitalist Progress Note ---
Date of Service July 27, 2022 Assessment & Plan (1) Hyperosmolar hyperglycemic state (HHS): (2) T2DM (type 2 diabetes mellitus): (3) Liver disease: (4) Esophageal varices: (5) Prostate cancer: (6) CKD (chronic kidney disease) stage 3, GFR 30-59 ml/min: (7) Anemia of chronic disease: (8) GERD (gastroesophageal reflux disease): (9) Cirrhosis: Plan Patient is a 72 yr male who presented to the [facility] from home with increased thirst and some blurry vision, diagnosed with HHS. On arrival, he was found to have a serum glucose of 744 and Na+ level of 125. The patient has a quite complex PMH that includes: DM2 (diet management), liver cirrhosis (on transplant list at [facility] [place]) s/p TIPS, prostate CA (2019 [place] 3+3 on Eligard s/p XRT), esophageal varices, Anemia of Chronic disease, GERD, and CKD3. The patient does receive infrequent abdominal paracentesis. The patient is AAOx4 and able to converse in no apparent distress. He denies any PHELPS, dizziness, CP, palpitations, N/V/D, muscle movement changes, concentration changes, appetite changes. Patient will be admitted to medicine service for further evaluation and management of his hyperglycemia and other ailments. 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 Moore for Palliative Medicine; last telemedicine appt 07/24. Takes Lactulose PRN; continue Monitor LFTs Follows with GI as outpatient LUCRETIA on CKD III Resolved with IV fluids Resume diuretics as able Prostate Cancer Diagnosed 2019 [place] 3+3 on Eligard s/p XRT Anemia of chronic disease Hgb 7.8 H/O Rectal Bleeding GERD Continue PPI Psoriasis Monitor DVT Px: SCDs Code Status Full Code Admission and Anticipated Discharge Date Admission Date: July 26, 2022 Subjective Patient is seen and examined at bedside States feeling well today Denies any blurred vision today Denies any chest pain, shortness of breath, dizziness, nausea, abdominal pain Offers no other complaints Review of Systems Review of Systems: All systems reviewed & are unremarkable except as noted in Subjective Physical Exam Physical Exam: Physical Exam: Vitals signs as noted above General Appearance:Moderately built and nourished, no apparent distress Head: normocephalic, Atraumatic Eyes: normal inspection, EOMI Neck: supple, Trachea midline Respiratory/Chest: Normal breath sounds, CTA, No accessory muscle use Cardiovascular: S1, S2, +murmur Abdomen/GI:Soft, Non tender, +Protuberant, Bowel sounds present Extremities/Musculoskeletal:normal inspection, no edema Neurologic/Psych:AAOX3, grossly no focal neurological deficits Skin: normal color, warm, +Spider Naevi Results & Data Results & Data ([facility]) Vital Signs (Past 12 Hours) Vital Signs Temp Pulse Pulse Resp BP Pulse Ox O2 Del Method 07/27/22 17:40 36.7 C 88 20 128/61 96 07/27/22 12:00 36.5 C 66 18 132/66 94 07/27/22 08:25 73 07/27/22 08:00 Room Air 07/27/22 08:00 36.7 C 60 18 109/69 Laboratory Results Short CBC 07/27/22 Range/Units 08:09 WBC 2.99 L (4.8-10.8) K/ul Hgb 7.8 L (14.0-18.0) g/dl Hct 22.5 L (40.1-51.0) % Plt Count 66 L (130-400) K/uL BMP 07/26/22 07/27/22 20:03 08:09 Sodium 133 L 139 Potassium 3.4 L D 4.1 D Chloride 103 110 H Carbon Dioxide 22 24 BUN 21 19 Creatinine 1.27 1.27 Glucose 343 H* 175 H Calcium 8.6 8.2 L Liver Function 07/27/22 07/27/22 Range/Units 06:08 08:09 Total Bilirubin 5.0 H 5.2 H (0.2-1.0) mg/dl Direct Bilirubin 0.8 H (0-0.2) mg/dl AST 28 29 (13-39) U/L ALT 16 15 (7-52) U/L Alkaline Phosphatase 134 H 129 H (34-104) U/L Albumin 2.6 L 2.6 L (3.4-5.0) gm/dl (1) GERD (gastroesophageal reflux disease) Esophagitis presence: esophagitis presence not specified Qualified Code(s): K21.9 - Gastro-esophageal reflux disease without esophagitis (2) Cirrhosis Ascites presence: without ascites Hepatic cirrhosis type: unspecified hepatic cirrhosis Qualified Code(s): K74.60 - Unspecified cirrhosis of liver
[2022-07-27] MEDS: MIRTAZAPINE TAB 15 MG TAB PO SCH (20:18)
[2022-07-28] MEDS: INSULIN ASPART PER UNIT SC SCH ×5 (03:48→20:25)
[2022-07-28 06:17] LABS: Hematocrit (blood only) 22.8 % (40.1-51.0); Hemoglobin 7.8 g/dl (14.0-18.0); Mean Platelet Volume 11.6 fL (9.4-12.4); Platelet Count 66 K/uL (130-400); White Blood Count 3.09 K/ul (4.8-10.8)
[2022-07-28 06:36] LABS: Mean Corpuscular Hemoglobin 33.9 pg (25.0-34.0); Mean Corpuscular Hgb Conc 34.2 g/dL (32.0-36.0); Mean Corpuscular Volume 99.1 fL (80.0-100.0); RDW Coefficient of Variation 18.2 % (11.5-14.5); RDW Standard Deviation 64.5 fL (36.4-46.3)
[2022-07-28 06:45] LABS: Albumin Globulin Ratio 0.9 (0.9-2); Albumin Level 2.6 gm/dl (3.4-5.0); BUN Creatinine Ratio 15.5 (10-20); Bilirubin,Total 5.8 mg/dl (0.2-1.0); Calcium 7.8 mg/dl (8.5-10.1); Creatinine Clr Calc Pharmacy 44.5 ml/min; Est GFR (African American) 51.1 ml/min; Est GFR (Non-African American) 44.1 ml/min; Globulin 2.8 gm/dl (2.5-4.0); Magnesium 1.9 mg/dl (1.7-2.4); Total Protein 5.4 gm/dl (6.0-8.3)
[2022-07-28] MEDS: LANTUS PER UNIT CHARGE SQ SCH ×2 (08:57→20:25)
[2022-07-28] MEDS: CITALOPRAM 20 MG TAB PO SCH (08:57)
[2022-07-28] MEDS: rifAXIMin 550 MG TABLET PO SCH ×2 (08:57→20:16)
[2022-07-28] MEDS: allopurinoL 100 MG TAB PO SCH ×2 (08:58→20:16)
[2022-07-28] MEDS: FINASTERIDE 5 MG TAB PO SCH (08:58)
[2022-07-28] MEDS: PANTOprazole 40 MG TAB PO SCH (08:58)
[2022-07-28] MEDS: LACTULOSE SYRUP 10 GM/15 ML BTL 960 ML PO SCH (08:58)
[2022-07-28] MEDS: SPIRONOLACTONE 25 MG TAB PO SCH (10:20)
[2022-07-28] MEDS: FUROSEMIDE 20 MG TAB PO SCH (10:20)
--- NOTE | 2022-07-28 17:07 | Hospitalist Progress Note ---
Date of Service July 28, 2022 Assessment & Plan (1) Hyperosmolar hyperglycemic state (HHS): (2) T2DM (type 2 diabetes mellitus): (3) Liver disease: (4) Esophageal varices: (5) Prostate cancer: (6) CKD (chronic kidney disease) stage 3, GFR 30-59 ml/min: (7) Anemia of chronic disease: (8) GERD (gastroesophageal reflux disease): (9) Cirrhosis: Plan Patient is a 72 yr male who presented to the [facility] from home with increased thirst and some blurry vision, diagnosed with HHS. On arrival, he was found to have a serum glucose of 744 and Na+ level of 125. The patient has a quite complex PMH that includes: DM2 (diet management), liver cirrhosis (on transplant list at [facility] [place]) s/p TIPS, prostate CA (2019 [place] 3+3 on Eligard s/p XRT), esophageal varices, Anemia of Chronic disease, GERD, and CKD3. The patient does receive infrequent abdominal paracentesis. The patient is AAOx4 and able to converse in no apparent distress. He denies any PHELPS, dizziness, CP, palpitations, N/V/D, muscle movement changes, concentration changes, appetite changes. Patient will be admitted to medicine service for further evaluation and management of his hyperglycemia and other ailments. HHS Uncontrolled DM II Not on any meds prior to admission HbA1C:9.1 Anion Gap Metabolic Acidosis secondary to above Pseudohyponatremia due to hyperglycemia Insulin gtt>>transitioned to SQ Insulin Received IV fluids Appreciate Glycemic Pharmacy help Replace electrolytes as needed Anion Gap closed, Metabolic acidosis resolved as well Tolerating diet Consulted Dialysis Patient Care Technician Continue Insulin per Protocol Monitor BGs Cirrhosis of Liver GAVE Esophageal varices H/O Portal Vein Thrombosis On transplant list at [facility] [place]. 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 Moore for Palliative Medicine; last telemedicine appt 07/24. Takes Lactulose PRN; continue Monitor LFTs Follows with GI as outpatient Hyperbilirubinemia worsening Will consider GI evaluation tomorrow if LFTs continues to worsen. LUCRETIA on CKD III Resolved with IV fluids Monitor renal function Prostate Cancer Diagnosed 2019 [place] 3+3 on Eligard s/p XRT Anemia of chronic disease Hgb 7.8 H/O Rectal Bleeding GERD Continue PPI Psoriasis Monitor DVT Px: SCDs Code Status Full Code Admission and Anticipated Discharge Date Admission Date: July 26, 2022 Subjective Patient is seen and examined at bedside States feeling tired and sleepy Denies any chest pain, shortness of breath, dizziness, nausea, abdominal pain Offers no other complaints Hyperbilirubinemia slowly worsening Review of Systems Review of Systems: All systems reviewed & are unremarkable except as noted in Subjective Physical Exam Physical Exam: Physical Exam: Vitals signs as noted above General Appearance:Moderately built and nourished, no apparent distress Head: normocephalic, Atraumatic Eyes: normal inspection, EOMI Neck: supple, Trachea midline Respiratory/Chest: Normal breath sounds, CTA, No accessory muscle use Cardiovascular: S1, S2, +murmur Abdomen/GI:Soft, Non tender, +Protuberant, Bowel sounds present Extremities/Musculoskeletal:normal inspection, no edema Neurologic/Psych:AAOX3, grossly no focal neurological deficits Skin: normal color, warm, +Spider Naevi Results & Data Results & Data ([facility]) Vital Signs (Past 12 Hours) Vital Signs Temp Pulse Pulse Resp BP Pulse Ox O2 Del Method 07/28/22 16:00 Room Air 07/28/22 16:22 36.8 C 66 17 132/64 95 Room Air 07/28/22 11:35 36.7 C 59 L 18 116/55 L 98 Room Air 07/28/22 09:00 54 L 07/28/22 08:08 36.5 C 58 L 17 107/67 95 Room Air Laboratory Results Short CBC 07/28/22 Range/Units 05:45 WBC 3.09 L (4.8-10.8) K/ul Hgb 7.8 L (14.0-18.0) g/dl Hct 22.8 L (40.1-51.0) % Plt Count 66 L (130-400) K/uL BMP 07/28/22 05:45 Sodium 141 Potassium 4.0 Chloride 112 H Carbon Dioxide 24 BUN 24 H Creatinine 1.55 H Glucose 133 H Calcium 7.8 L Liver Function 07/28/22 Range/Units 05:45 Total Bilirubin 5.8 H (0.2-1.0) mg/dl AST 46 H (13-39) U/L ALT 20 (7-52) U/L Alkaline Phosphatase 129 H (34-104) U/L Albumin 2.6 L (3.4-5.0) gm/dl (1) GERD (gastroesophageal reflux disease) Esophagitis presence: esophagitis presence not specified Qualified Code(s): K21.9 - Gastro-esophageal reflux disease without esophagitis (2) Cirrhosis Ascites presence: without ascites Hepatic cirrhosis type: unspecified hepatic cirrhosis Qualified Code(s): K74.60 - Unspecified cirrhosis of liver
[2022-07-28] MEDS: MIRTAZAPINE TAB 15 MG TAB PO SCH (20:16)
[2022-07-29 06:47] LABS: Albumin Level 2.6 gm/dl (3.4-5.0); BUN Creatinine Ratio 19.3 (10-20); Bilirubin Direct 0.9 mg/dl (0-0.2); Bilirubin,Total 5.4 mg/dl (0.2-1.0); Calcium 7.8 mg/dl (8.5-10.1); Creatinine Clr Calc Pharmacy 49.2 ml/min; Est GFR (African American) 57.8 ml/min; Est GFR (Non-African American) 49.8 ml/min; Magnesium 1.8 mg/dl (1.7-2.4); Potassium 4.1 mmol/L (3.5-5.1); Total Protein 5.5 gm/dl (6.0-8.3)
[2022-07-29 07:09] LABS: Hematocrit (blood only) 22.6 % (40.1-51.0); Hemoglobin 7.7 g/dl (14.0-18.0); Mean Platelet Volume 11.2 fL (9.4-12.4); Platelet Count 63 K/uL (130-400); White Blood Count 3.15 K/ul (4.8-10.8)
[2022-07-29 07:34] LABS: Mean Corpuscular Hemoglobin 33.6 pg (25.0-34.0); Mean Corpuscular Hgb Conc 34.1 g/dL (32.0-36.0); Mean Corpuscular Volume 98.7 fL (80.0-100.0); RDW Coefficient of Variation 18.2 % (11.5-14.5); RDW Standard Deviation 63.7 fL (36.4-46.3); Red Blood Count 2.29 M/uL (4.63-6.08)
[2022-07-29] MEDS: SPIRONOLACTONE 25 MG TAB PO SCH (08:54)
[2022-07-29] MEDS: allopurinoL 100 MG TAB PO SCH ×2 (08:54→20:23)
[2022-07-29] MEDS: FINASTERIDE 5 MG TAB PO SCH (08:54)
[2022-07-29] MEDS: PANTOprazole 40 MG TAB PO SCH (08:54)
[2022-07-29] MEDS: FUROSEMIDE 20 MG TAB PO SCH (08:54)
[2022-07-29] MEDS: CITALOPRAM 20 MG TAB PO SCH (08:54)
[2022-07-29] MEDS: rifAXIMin 550 MG TABLET PO SCH ×2 (08:55→20:23)
[2022-07-29] MEDS: INSULIN ASPART PER UNIT SC SCH ×4 (08:55→20:24)
[2022-07-29] MEDS: LACTULOSE SYRUP 10 GM/15 ML BTL 960 ML PO SCH (08:55)
--- NOTE | 2022-07-29 09:18 | Pharmacy Report ---
Pharmacy Glycemic Short Note 2 - Date of Service July 29, 2022 - Glycemic Short BSG Results (Last 24 hours): 07/28/22 07/28/22 07/28/22 12:15 16:55 16:56 Glucose POC Glucose 260 H 311 H* 318 H* 07/28/22 07/29/22 07/29/22 20:18 05:51 08:11 Glucose 138 H POC Glucose 271 H 162 H OUTPATIENT ANTIDIABETIC REGIMEN: * None - diet controlled * HbA1c = 9.1% (07/27/22) ASSESSMENT: 07/29/22 * Patient's BSGs yesterday were [phone] mg/dl. Patient received 105 units of insulin (32 units of basal and 73 units of bolus). * Fasting today is 162 mg/dL. * Increase Lantus to 17 units BID. * Tightened CR at dinnertime to 3. BSGs corrected minimally between dinner and bedtime. Tighten Novolog further. BACKGROUND * 72 yo M admitted secondary to hyperglycemia. Patient found to be in HHS upon presentation. Pharmacy was consulted to transition patient off insulin drip to subcutaneous basal-bolus insulin as well as assist with inpatient glycemic management. Patient has a history of T2DM but is not on any pharmacotherapy at this time. Appears he was on Metformin and Glimepiride in the past with good control. * Initial labs: BSG 744 mg/dL, K 4.5 mmol/L, CO2 17 mmol/L, AG 12, VBG pH 7.41. Received 1 L of NS in ED followed by Normosol at 250 mL/hr x 1 bag. Started on an insulin drip at 8.2 units/hr along with an initial 8.2 unit IV bolus. BSGs improved rapidly: [phone] mg/dL. Was given a 15 unit dose of Lantus around 0100. During overlap of drip and basal, BSGs continued to improve: 151-155-110 mg/dL. Drip was shut off around 0500 and patient was successfully transitioned. * Labs from this AM: BSG 175 mg/dL, K 4.1 mmol/L, CO2 24 mmol/L, AG 5, VBG pH 7.41. * Patient was started on basal bolus insulin based on weight/stress of 2. Started on a clear liquid diet. Likely will need new medications for T2DM upon discharge given A1c. PLAN FOR INPATIENT GLYCEMIC CONTROL: * Basal insulin * Lantus 16 units SC BID * Bolus insulin * NovoLog per scale ACHS or Q6hrs while NPO * Goal Range: Low 110 mg/dL - High 140 mg/dL * Correction Factor: 12 mg/dL/unit * Nutritional / Prandial insulin per carb ratio of 1 unit per 2.5 grams CHO consumed
[2022-07-29] MEDS: LANTUS PER UNIT CHARGE SQ SCH (12:55)
--- NOTE | 2022-07-29 16:40 | Hospitalist Progress Note ---
Date of Service July 29, 2022 Assessment & Plan (1) Hyperosmolar hyperglycemic state (HHS): (2) T2DM (type 2 diabetes mellitus): (3) Liver disease: (4) Esophageal varices: (5) Prostate cancer: (6) CKD (chronic kidney disease) stage 3, GFR 30-59 ml/min: (7) Anemia of chronic disease: (8) GERD (gastroesophageal reflux disease): (9) Cirrhosis: Plan Patient is a 72 yr male who presented to the [facility] from home with increased thirst and some blurry vision, diagnosed with HHS. On arrival, he was found to have a serum glucose of 744 and Na+ level of 125. The patient has a quite complex PMH that includes: DM2 (diet management), liver cirrhosis (on transplant list at [facility]) s/p TIPS, prostate CA (2019 [place] 3+3 on Eligard s/p XRT), esophageal varices, Anemia of Chronic disease, GERD, and CKD3. The patient does receive infrequent abdominal paracentesis. The patient is AAOx4 and able to converse in no apparent distress. He denies any PHELPS, dizziness, CP, palpitations, N/V/D, muscle movement changes, concentration changes, appetite changes. Patient will be admitted to medicine service for further evaluation and management of his hyperglycemia and other ailments. HHS Uncontrolled DM II Not on any meds prior to admission HbA1C:9.1 Anion Gap Metabolic Acidosis secondary to above Pseudohyponatremia due to hyperglycemia Insulin gtt>>transitioned to SQ Insulin Received IV fluids Appreciate Glycemic Pharmacy help Replace electrolytes as needed Anion Gap closed, Metabolic acidosis resolved as well Tolerating diet Consulted Computing Architect Continue Insulin per Protocol Monitor BGs Continue current management May need Rehab placement Cirrhosis of Liver GAVE Esophageal varices H/O Portal Vein Thrombosis On transplant list at [facility]. 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 Moore for Palliative Medicine; last telemedicine appt 07/24. Takes Lactulose PRN; continue Monitor LFTs Follows with GI as outpatient Hyperbilirubinemia worsened from baseline LUCRETIA on CKD III Resolved with IV fluids Monitor renal function Cr 1.4 today Prostate Cancer Diagnosed 2019 [place] 3+3 on Eligard s/p XRT Anemia of chronic disease Hgb 7.8 H/O Rectal Bleeding GERD Continue PPI Psoriasis Monitor DVT Px: SCDs Code Status Full Code Disposition PT/OT prior to discharge Admission and Anticipated Discharge Date Admission Date: July 26, 2022 Subjective Patient is seen and examined at bedside Feels better today No new complaints Had PT earlier today Denies any chest pain, shortness of breath, dizziness, nausea, abdominal pain Review of Systems Review of Systems: All systems reviewed & are unremarkable except as noted in Subjective Physical Exam Physical Exam: Physical Exam: Vitals signs as noted above General Appearance:Moderately built and nourished, no apparent distress Head: normocephalic, Atraumatic Eyes: normal inspection, EOMI Neck: supple, Trachea midline Respiratory/Chest: Normal breath sounds, CTA, No accessory muscle use Cardiovascular: S1, S2, +murmur Abdomen/GI:Soft, Non tender, +Protuberant, Bowel sounds present Extremities/Musculoskeletal:normal inspection, no edema Neurologic/Psych:AAOX3, grossly no focal neurological deficits Skin: normal color, warm, +Spider Naevi Results & Data Results & Data ([facility]) Vital Signs (Past 12 Hours) Vital Signs Temp Pulse Pulse Resp BP Pulse Ox O2 Del Method 07/29/22 15:46 36.8 C 65 18 158/65 H 96 Room Air 07/29/22 15:36 64 07/29/22 11:33 36.7 C 59 L 17 111/53 L 96 Room Air 07/29/22 10:38 60 07/29/22 07:09 36.8 C 63 18 158/71 H 98 Room Air Laboratory Results Short CBC 07/29/22 07/29/22 Range/Units 05:51 06:54 WBC Cancelled 3.15 L Hgb Cancelled 7.7 L Hct Cancelled 22.6 L Plt Count Cancelled 63 L BMP 07/29/22 05:51 Sodium 139 Potassium 4.1 Chloride 112 H Carbon Dioxide 23 BUN 27 H Creatinine 1.40 Glucose 138 H Calcium 7.8 L Liver Function 07/29/22 Range/Units 05:51 Total Bilirubin 5.4 H (0.2-1.0) mg/dl Direct Bilirubin 0.9 H (0-0.2) mg/dl AST 45 H (13-39) U/L ALT 22 (7-52) U/L Alkaline Phosphatase 129 H (34-104) U/L Albumin 2.6 L (3.4-5.0) gm/dl (1) GERD (gastroesophageal reflux disease) Esophagitis presence: esophagitis presence not specified Qualified Code(s): K21.9 - Gastro-esophageal reflux disease without esophagitis (2) Cirrhosis Ascites presence: without ascites Hepatic cirrhosis type: unspecified hepatic cirrhosis Qualified Code(s): K74.60 - Unspecified cirrhosis of liver
[2022-07-29] MEDS: MIRTAZAPINE TAB 15 MG TAB PO SCH (20:23)
[2022-07-29] MEDS ORDERED: LANTUS PER UNIT CHARGE SQ SCH (21:00)
[2022-07-30 06:46] LABS: Albumin Level 2.7 gm/dl (3.4-5.0); BUN Creatinine Ratio 18.5 (10-20); Bilirubin Direct 0.8 mg/dl (0-0.2); Bilirubin,Total 5.9 mg/dl (0.2-1.0); Creatinine Clr Calc Pharmacy 45.7 ml/min; Est GFR (African American) 52.7 ml/min; Est GFR (Non-African American) 45.5 ml/min; Magnesium 1.8 mg/dl (1.7-2.4); Potassium 4.3 mmol/L (3.5-5.1); Total Protein 5.6 gm/dl (6.0-8.3)
[2022-07-30] MEDS: allopurinoL 100 MG TAB PO SCH ×2 (08:25→21:20)
[2022-07-30] MEDS: SPIRONOLACTONE 25 MG TAB PO SCH (08:25)
[2022-07-30] MEDS: rifAXIMin 550 MG TABLET PO SCH ×2 (08:25→21:20)
[2022-07-30] MEDS: CITALOPRAM 20 MG TAB PO SCH (08:25)
[2022-07-30] MEDS: PANTOprazole 40 MG TAB PO SCH (08:25)
[2022-07-30] MEDS: LACTULOSE SYRUP 10 GM/15 ML BTL 960 ML PO SCH (08:26)
[2022-07-30] MEDS: FINASTERIDE 5 MG TAB PO SCH (08:26)
[2022-07-30] MEDS: INSULIN ASPART PER UNIT SC SCH ×4 (08:35→21:04)
[2022-07-30] MEDS ORDERED: LANTUS PER UNIT CHARGE SQ SCH (09:00)
[2022-07-30] MEDS: FUROSEMIDE 20 MG TAB PO SCH (09:22)
[2022-07-30] MEDS ORDERED: POLYETHYLENE (MIRALAX) 17 GM PACK PO PRN (14:31)
[2022-07-30] MEDS: DOCUSATE SODIUM 100 MG CAP PO SCH ×2 (15:30→21:20)
--- NOTE | 2022-07-30 18:21 | Hospitalist Progress Note ---
Date of Service July 30, 2022 Assessment & Plan (1) Hyperosmolar hyperglycemic state (HHS): (2) T2DM (type 2 diabetes mellitus): (3) Liver disease: (4) Esophageal varices: (5) Prostate cancer: (6) CKD (chronic kidney disease) stage 3, GFR 30-59 ml/min: (7) Anemia of chronic disease: (8) GERD (gastroesophageal reflux disease): (9) Cirrhosis: Plan Patient is a 72 yr male who presented to the [facility] from home with increased thirst and some blurry vision, diagnosed with HHS. On arrival, he was found to have a serum glucose of 744 and Na+ level of 125. The patient has a quite complex PMH that includes: DM2 (diet management), liver cirrhosis (on transplant list at [facility]) s/p TIPS, prostate CA (2019 [place] 3+3 on Eligard s/p XRT), esophageal varices, Anemia of Chronic disease, GERD, and CKD3. The patient does receive infrequent abdominal paracentesis. The patient is AAOx4 and able to converse in no apparent distress. He denies any PHELPS, dizziness, CP, palpitations, N/V/D, muscle movement changes, concentration changes, appetite changes. Patient will be admitted to medicine service for further evaluation and management of his hyperglycemia and other ailments. HHS Uncontrolled DM II Not on any meds prior to admission HbA1C:9.1 Anion Gap Metabolic Acidosis secondary to above Pseudohyponatremia due to hyperglycemia Insulin gtt>>transitioned to SQ Insulin Received IV fluids Appreciate Glycemic Pharmacy help Replace electrolytes as needed Anion Gap closed, Metabolic acidosis resolved as well Tolerating diet Consulted Ibm Web[employer] Commerce Developer Continue Insulin per Protocol Monitor BGs Likely plan to discharge to Rehab tomorrow Cirrhosis of Liver GAVE Esophageal varices H/O Portal Vein Thrombosis On transplant list at [facility]. 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 Moore for Palliative Medicine; last telemedicine appt 07/24. Takes Lactulose PRN; continue Monitor LFTs Hyperbilirubinemia worsened from baseline Discussed with GI today. Will check Gall bladder USD to r/o obstruction Needs follows with GI as outpatient LUCRETIA on CKD III Resolved with IV fluids Monitor renal function Cr 1.5 today Prostate Cancer Diagnosed 2019 [place] 3+3 on Eligard s/p XRT Anemia of chronic disease Hgb 7.7 H/O Rectal Bleeding GERD Continue PPI Psoriasis Monitor DVT Px: SCDs Code Status Full Code Disposition Likely Rehab tomorrow Admission and Anticipated Discharge Date Admission Date: July 26, 2022 Subjective Patient is seen and examined at bedside Doing well Discussed with GI regarding hyperbilirubinemia Denies any chest pain, shortness of breath, dizziness, nausea, abdominal pain Likely plan to discharge to rehab tomorrow Review of Systems Review of Systems: All systems reviewed & are unremarkable except as noted in Subjective Physical Exam Physical Exam: Physical Exam: Vitals signs as noted above General Appearance:Moderately built and nourished, no apparent distress Head: normocephalic, Atraumatic Eyes: normal inspection, EOMI Neck: supple, Trachea midline Respiratory/Chest: Normal breath sounds, CTA, No accessory muscle use Cardiovascular: S1, S2, +murmur Abdomen/GI:Soft, Non tender, +Protuberant, Bowel sounds present Extremities/Musculoskeletal:normal inspection, no edema Neurologic/Psych:AAOX3, grossly no focal neurological deficits Skin: normal color, warm, +Spider Naevi Results & Data Results & Data ([facility]) Vital Signs (Past 12 Hours) Vital Signs Temp Pulse Pulse Resp BP Pulse Ox O2 Del Method 07/30/22 16:49 75 07/30/22 15:48 36.8 C 68 18 136/54 L 98 Room Air 07/30/22 11:38 37.0 C 74 18 131/64 100 Room Air 07/30/22 09:39 Room Air 07/30/22 09:37 61 07/30/22 07:27 36.3 C L 63 18 180/74 H 99 Room Air Laboratory Results [facility] 07/30/22 05:55 Sodium 142 Potassium 4.3 Chloride 114 H Carbon Dioxide 22 BUN 28 H Creatinine 1.51 H Glucose 147 H Calcium 8.0 L Liver Function 07/30/22 Range/Units 05:55 Total Bilirubin 5.9 H (0.2-1.0) mg/dl Direct Bilirubin 0.8 H (0-0.2) mg/dl AST 47 H (13-39) U/L ALT 22 (7-52) U/L Alkaline Phosphatase 131 H (34-104) U/L Albumin 2.7 L (3.4-5.0) gm/dl (1) GERD (gastroesophageal reflux disease) Esophagitis presence: esophagitis presence not specified Qualified Code(s): K21.9 - Gastro-esophageal reflux disease without esophagitis (2) Cirrhosis Ascites presence: without ascites Hepatic cirrhosis type: unspecified hepatic cirrhosis Qualified Code(s): K74.60 - Unspecified cirrhosis of liver
[2022-07-30] MEDS: MIRTAZAPINE TAB 15 MG TAB PO SCH (21:20)
--- NOTE | 2022-07-30 22:29 | Ultrasound Report ---
US gallbladder CLINICAL HISTORY: Hyperbilirubinemia TECHNIQUE: Multiple real-time sonographic images of the right upper quadrant were obtained. Comparison: None available at the time of this dictation. FINDINGS: The liver is diffusely coarsened in echotexture, with a nodular contour. The liver appears shrunken i n appearance. These findings are suggestive of cirrhosis. No focal mass lesions are seen. No intr ahepatic ductal dilatation is seen. No gallstones or sludge are identified within the gallbladder. T he gallbladder wall is not thickened. There is no pericholecystic fluid present. A sonographic Banuelos 's sign was not elicited by the cad engineer. The common duct measures 0.4 cm in diameter at the lev el of the hepatic artery. The visualized portions of the pancreas appear normal. The right kidney shows normal echogenicity, cortical thickness and renal contour. The right kidney sh ows no evidence of hydronephrosis or mass. Moderate ascites is noted. IMPRESSION: Cirrhosis and moderate ascites. No focal liver mass. ACT 112: Negative or not required by law. Electronically signed by: Arik Flowers M.D. 07/30/2022 10:27 PM
[2022-07-31 06:15] LABS: Hematocrit (blood only) 21.5 % (40.1-51.0); Hemoglobin 7.3 g/dl (14.0-18.0); Mean Platelet Volume 11.6 fL (9.4-12.4); Platelet Count 59 K/uL (130-400); White Blood Count 2.83 K/ul (4.8-10.8)
[2022-07-31 06:47] LABS: BUN Creatinine Ratio 20.6 (10-20); Calcium 8.1 mg/dl (8.5-10.1); Creatinine Clr Calc Pharmacy 48.9 ml/min; Est GFR (African American) 57.3 ml/min; Est GFR (Non-African American) 49.4 ml/min; Potassium 3.9 mmol/L (3.5-5.1)
[2022-07-31 07:10] LABS: Mean Corpuscular Hemoglobin 34.4 pg (25.0-34.0); Mean Corpuscular Volume 101.4 fL (80.0-100.0); RDW Coefficient of Variation 18.6 % (11.5-14.5); Red Blood Count 2.12 M/uL (4.63-6.08)
[2022-07-31] MEDS: rifAXIMin 550 MG TABLET PO SCH ×2 (08:47→23:12)
[2022-07-31] MEDS: allopurinoL 100 MG TAB PO SCH ×2 (08:48→23:12)
[2022-07-31] MEDS: FUROSEMIDE 20 MG TAB PO SCH (08:48)
[2022-07-31] MEDS: PANTOprazole 40 MG TAB PO SCH (08:49)
[2022-07-31] MEDS: FINASTERIDE 5 MG TAB PO SCH (08:49)
[2022-07-31] MEDS: SPIRONOLACTONE 25 MG TAB PO SCH (08:49)
[2022-07-31] MEDS: CITALOPRAM 20 MG TAB PO SCH (08:50)
[2022-07-31] MEDS: LACTULOSE SYRUP 10 GM/15 ML BTL 960 ML PO SCH (08:52)
[2022-07-31] MEDS: DOCUSATE SODIUM 100 MG CAP PO SCH ×2 (09:00→23:13)
[2022-07-31] MEDS: INSULIN ASPART PER UNIT SC SCH ×4 (09:01→23:14)
[2022-07-31] MEDS: LANTUS PER UNIT CHARGE SQ SCH (09:02)
--- NOTE | 2022-07-31 10:21 | Pharmacy Report ---
Pharmacy Glycemic Short Note 2 - Date of Service July 31, 2022 - Glycemic Short BSG Results (Last 24 hours): 07/30/22 07/30/22 07/30/22 11:49 16:59 20:15 Glucose POC Glucose 280 H 228 H 120 H 07/31/22 07/31/22 05:44 08:07 Glucose 157 H POC Glucose 184 H OUTPATIENT ANTIDIABETIC REGIMEN: * None - diet controlled * HbA1c = 9.1% (07/27/22) ASSESSMENT: 07/31/22 * Morning Lantus inadvertently held on morning of 07/29 so only half daily dose of basal given that day * Gave full daily basal dose in the morning yesterday to account for this - will continue once daily basal * BSGs understandably elevated yesterday, ranging 120-280 mg/dL * Novolog tightened - will continue, fasting BSGs remain elevated, will increase Lantus today 07/29/22 * Patient's BSGs yesterday were [phone] mg/dl. Patient received 105 units of insulin (32 units of basal and 73 units of bolus). * Fasting today is 162 mg/dL. * Increase Lantus to 17 units BID. * Tightened CR at dinnertime to 3. BSGs corrected minimally between dinner and bedtime. Tighten Novolog further. BACKGROUND * 72 yo M admitted secondary to hyperglycemia. Patient found to be in HHS upon presentation. Pharmacy was consulted to transition patient off insulin drip to subcutaneous basal-bolus insulin as well as assist with inpatient glycemic management. Patient has a history of T2DM but is not on any pharmacotherapy at this time. Appears he was on Metformin and Glimepiride in the past with good control. * Initial labs: BSG 744 mg/dL, K 4.5 mmol/L, CO2 17 mmol/L, AG 12, VBG pH 7.41. Received 1 L of NS in ED followed by Normosol at 250 mL/hr x 1 bag. Started on an insulin drip at 8.2 units/hr along with an initial 8.2 unit IV bolus. BSGs improved rapidly: [phone] mg/dL. Was given a 15 unit dose of Lantus around 0100. During overlap of drip and basal, BSGs continued to improve: 151-155-110 mg/dL. Drip was shut off around 0500 and patient was successfully transitioned. * Labs from this AM: BSG 175 mg/dL, K 4.1 mmol/L, CO2 24 mmol/L, AG 5, VBG pH 7.41. * Patient was started on basal bolus insulin based on weight/stress of 2. Started on a clear liquid diet. Likely will need new medications for T2DM upon discharge given A1c. PLAN FOR INPATIENT GLYCEMIC CONTROL: * Basal insulin * Lantus 40 units SC daily * Bolus insulin * NovoLog per scale ACHS or Q6hrs while NPO * Goal Range: Low 110 mg/dL - High 140 mg/dL * Correction Factor: 12 mg/dL/unit * Nutritional / Prandial insulin per carb ratio of 1 unit per 2 grams CHO consumed
[2022-07-31 11:03] LABS: Hematocrit (blood only) 22.4 % (40.1-51.0); Hemoglobin 7.6 g/dl (14.0-18.0)
--- NOTE | 2022-07-31 16:26 | Hospitalist Progress Note ---
Date of Service July 31, 2022 Assessment & Plan (1) Hyperosmolar hyperglycemic state (HHS): (2) T2DM (type 2 diabetes mellitus): (3) Liver disease: (4) Esophageal varices: (5) Prostate cancer: (6) CKD (chronic kidney disease) stage 3, GFR 30-59 ml/min: (7) Anemia of chronic disease: (8) GERD (gastroesophageal reflux disease): (9) Cirrhosis: Plan Patient is a 72 yr male who presented to the [facility] from home with increased thirst and some blurry vision, diagnosed with HHS. On arrival, he was found to have a serum glucose of 744 and Na+ level of 125. The patient has a quite complex PMH that includes: DM2 (diet management), liver cirrhosis (on transplant list at [facility]) s/p TIPS, prostate CA (2019 [place] 3+3 on Eligard s/p XRT), esophageal varices, Anemia of Chronic disease, GERD, and CKD3. The patient does receive infrequent abdominal paracentesis. The patient is AAOx4 and able to converse in no apparent distress. He denies any PHELPS, dizziness, CP, palpitations, N/V/D, muscle movement changes, concentration changes, appetite changes. Patient will be admitted to medicine service for further evaluation and management of his hyperglycemia and other ailments. HHS Uncontrolled DM II Not on any meds prior to admission HbA1C:9.1 Anion Gap Metabolic Acidosis secondary to above Pseudohyponatremia due to hyperglycemia Insulin gtt>>transitioned to SQ Insulin Received IV fluids Appreciate Glycemic Pharmacy help Replace electrolytes as needed Anion Gap closed, Metabolic acidosis resolved as well Tolerating diet Consulted Powder Nipper Continue Insulin per Protocol Monitor BGs Likely plan to discharge to Rehab as able Cirrhosis of Liver GAVE Esophageal varices H/O Portal Vein Thrombosis On transplant list at [facility]. 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 Moore for Palliative Medicine; last telemedicine appt 07/24. Takes Lactulose PRN; continue Monitor LFTs Hyperbilirubinemia worsened from baseline Discussed with GI on 07/30 Gall bladder USD: Cirrhosis and moderate ascites. No focal liver mass. Needs follows with GI as outpatient LUCRETIA on CKD III Resolved with IV fluids Monitor renal function Cr 1.4 today Prostate Cancer Diagnosed 2019 [place] 3+3 on Eligard s/p XRT Anemia of chronic disease Hgb 7.6 H/O Rectal Bleeding Denies bleeding issues today GERD Continue PPI Psoriasis Monitor DVT Px: SCDs Code Status Full Code Disposition Rehab as able Admission and Anticipated Discharge Date Admission Date: July 26, 2022 Subjective Patient is seen and examined at bedside States feeling Dizzy this morning Denies any chest pain, shortness of breath, dizziness, nausea, abdominal pain Feels tired No other complaints Review of Systems Review of Systems: All systems reviewed & are unremarkable except as noted in Subjective Physical Exam Physical Exam: Physical Exam: Vitals signs as noted above General Appearance:Moderately built and nourished, no apparent distress Head: normocephalic, Atraumatic Eyes: normal inspection, EOMI Neck: supple, Trachea midline Respiratory/Chest: Normal breath sounds, CTA, No accessory muscle use Cardiovascular: S1, S2, +murmur Abdomen/GI:Soft, Non tender, +Protuberant, Bowel sounds present Extremities/Musculoskeletal:normal inspection, no edema Neurologic/Psych:AAOX3, grossly no focal neurological deficits Skin: normal color, warm, +Spider Naevi Results & Data Results & Data ([facility]) Vital Signs (Past 12 Hours) Vital Signs Temp Pulse Resp BP Pulse Ox O2 Del Method 07/31/22 15:32 36.9 C 76 19 139/54 L 99 Room Air 07/31/22 11:35 36.7 C 67 17 148/64 H 97 Room Air 07/31/22 07:47 Room Air 07/31/22 07:33 36.9 C 78 17 167/73 H 97 Room Air Laboratory Results Short CBC 07/31/22 07/31/22 Range/Units 05:44 10:45 WBC 2.83 L (4.8-10.8) K/ul Hgb 7.3 L 7.6 L (14.0-18.0) g/dl Hct 21.5 L 22.4 L (40.1-51.0) % Plt Count 59 L (130-400) K/uL BMP 07/31/22 05:44 Sodium 142 Potassium 3.9 Chloride 113 H Carbon Dioxide 23 BUN 29 H Creatinine 1.41 H Glucose 157 H Calcium 8.1 L (1) GERD (gastroesophageal reflux disease) Esophagitis presence: esophagitis presence not specified Qualified Code(s): K21.9 - Gastro-esophageal reflux disease without esophagitis (2) Cirrhosis Ascites presence: without ascites Hepatic cirrhosis type: unspecified hepatic cirrhosis Qualified Code(s): K74.60 - Unspecified cirrhosis of liver
[2022-07-31] MEDS: MIRTAZAPINE TAB 15 MG TAB PO SCH (23:13)
[2022-08-01 06:20] LABS: Hematocrit (blood only) 21.9 % (40.1-51.0); Hemoglobin 7.3 g/dl (14.0-18.0); Mean Platelet Volume 10.8 fL (9.4-12.4); Platelet Count 68 K/uL (130-400); White Blood Count 3.73 K/ul (4.8-10.8)
[2022-08-01 06:46] LABS: Est GFR (African American) 53.1 ml/min; Est GFR (Non-African American) 45.9 ml/min
[2022-08-01 06:50] LABS: Mean Corpuscular Hemoglobin 33.8 pg (25.0-34.0); Mean Corpuscular Hgb Conc 33.3 g/dL (32.0-36.0); Mean Corpuscular Volume 101.4 fL (80.0-100.0); RDW Coefficient of Variation 18.8 % (11.5-14.5); RDW Standard Deviation 68.2 fL (36.4-46.3); Red Blood Count 2.16 M/uL (4.63-6.08)
[2022-08-01] MEDS: INSULIN ASPART PER UNIT SC SCH ×4 (08:30→20:43)
--- NOTE | 2022-08-01 08:52 | Gastrointestinal Consultation ---
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 EV: will arrange OP EGD. Due in Oct 2022. 2. Anemia: multifactorial (cirrhosis, CKD-3). Int hemorrhoids and radiation proctitis w/o current bleeding. Transfuse to Hb 7, not higher due to EV risk of bleeding. 3. Decompensation: Bili 5, MELD 19 (though most recent INR 8/26, will recheck tomorrow). Patient is listed for transplant. Will update transplant team on hospitalization. 4. Elevated ammonia. He has only mild hepatic encephalopathy currently. Will increase lactulose to 20 g TID times daily but may hold if more than 3 loose bowel movements per day. Continue rifaximin. Appreciate primary hospitalists management of DM. Supervising Physician Co-Signing Physician Notes Attg add: I interviewed and examined pt, reviewed chart and labs. Pt with DKA, cirrhosis. he has small volume rectal bleeding, likely XRT proctitis. No indication for scope at this time. On exam, he does not have sig ascites; on diuretics - please continue. He is lucid, but has asterixis -- agree with lactulose increase as outlined above, also xifaxan. Please call with questions. History of Present Illness Reason for Consultation: Intermittent rectal bleed, anemia, Hyperammonemia Requesting Physician: Dr. Paul Attending Physician: Tavo Paul MD History of Present Illness Luis Hale is a 72 yr old male pt of Dr. Cisse with a hx of FOFANA cirrhosis w EV, ascites S/P Tips in Oct 2020, rectal bleeding from hemorrhoids and radiation proctitis (hx of prostate CA tx with radiation). He also carries a hx of HCC S/P bland embolization in January 2022. He was admitted on 07/26 when OP labs showed his BS was >600 and pt reported feeling very fatigued. GI is consulted for rectal bleeding, anemia, hyperammonemia. Hb baseline approx 8.5, on admission Hb was 7.5 and today is 7.3. BUN has been mildly elevated, today at 29 but Cr is also above his baseline of approx 1.3 - today Cr is 1.5. He denies any gross GI bleeding and his nurse this morning verifies no recent rectal bleeding and no vomiting. He has had HE in the past. On arrival ammonia was 91 ->128 today. He is mentally clear this morning though tells me that he mentation is slightly slow, slow word finding, that he was confused a few days ago. He is able to tell me today's date and give me details of upcoming appointments. He feels a bit fatigued; is unable to provide his own self-care this morning. He tells me there are plans to be discharged to rehab. He reports having had constipation at home and is currently having only 1 or 2 bowel movements per day, most recently a large watery 1 this morning. Current lactulose dose is 10 g twice daily. He is also maintained on rifaximin 550 mg twice daily. Since arrival, US w cirrhosis, no focal lesions. US for ascites - measured trace ascites though general liver US prior mentioned moderate ascites. He has not been on any diuretics since the TIPS in 2019. Most recent Flex sig in January 2022 and April 2022 radiation proctitis was APC'ed and int hemorrhoids were seen. Most recent full colonoscopy in Nov 2021 w similar findings. Most recent EGD was in Oct 2020 w Grade I-II EV, portal HTN. He is intolerant of BB. Allergies Allergy/AdvReac Type Severity Reaction Status Date / Time No Known Allergies Allergy Mild Verified 04/12/22 08:58 Home Medications Medication Instructions Recorded Confirmed Type citalopram 10 mg tablet (Celexa) 10 mg PO QAM 03/24/20 07/26/22 History omeprazole 40 mg capsule,delayed 40 mg PO QAM 03/24/20 07/26/22 History release allopurinol 100 mg tablet 100 mg PO BID 05/16/20 07/26/22 History rifaximin 550 mg tablet (Xifaxan) 550 mg PO BID 12/08/20 07/26/22 History finasteride 5 mg tablet 5 mg PO QAM 11/03/21 07/26/22 History lactulose 10 gram/15 mL oral See Rx Instructions .Route 03/13/22 07/26/22 History solution .COMPLEX PRN Constipation furosemide 20 mg tablet 20 mg PO QAM 07/26/22 07/26/22 History mirtazapine 30 mg tablet 30 mg PO HS 07/26/22 07/26/22 History spironolactone 25 mg tablet 25 mg PO QAM 07/26/22 07/26/22 History Patient History Medical History Anemia Anemia of chronic disease 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 CKD (chronic kidney disease) stage 3, GFR 30-59 ml/min DVT prophylaxis Esophageal varices Esophageal varices GAVE (gastric antral vascular ectasia) GERD (gastroesophageal reflux disease) Gout NO ISSUES CURRENTLY History of panic attacks Hyperosmolar hyperglycemic state (HHS) Hypertension Prostate cancer (11/10/20) Psoriasis Rectal bleeding Shortness of breath Upper GI bleed Surgical History History of abdominal paracentesis multiple---pt states last was 6 months ago History of colonoscopy with polypectomy History of esophagogastroduodenoscopy (EGD) last 10/25 revealed grade 2 esophageal varices, grade 1 gastric varices STABLE History of prostate biopsy malignant History of tonsillectomy and adenoidectomy S/P TIPS (transjugular intrahepatic portosystemic shunt) Family History Father , "3/4 liver gone due to drinking" Colorectal cancer, Onset Age: 63 Mother Lung cancer Daughter Cancer cervical and thyroid cancers Ovarian cancer Other No family history of adverse response to anesthesia 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 Smoking Status: Never smoker Second Hand Exposure: No; Hx Alcohol Use: No Hx Substance Use: No Preferred Language: Lithuanian Communication Ability: Effective Visual Impairment: No Limitations Hearing Ability: Normal Hand Packer/Packager Required: No Beliefs That Will Affect Care: None marital status: Current Living Situation: Spouse 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 How many Children do You have: 6 How many Children do You have Comment: one , eldest daughter in he r sleep from seizure disorder Other Information That Helps Us Care for You: No Feels Safe at Home: Yes Safety Concerns: Feels Safe At This Time Childhood Exposure to Second-Hand Smoke: Yes Diet Comment: "I watch my sugar, average fasting is 140 mg/dl" caffeine: Yes (cola, sugar free, decaf) during the past year weight has: remained stable Dental Care, Regularly: No Physical Activity Frequency: Does not Exercise Seatbelt Use: always Sunscreen Use: Yes Assistive Devices: Walker Review of Systems Review of Systems: ROS: Gen: + weakness, No fevers, No weight loss Eyes: No eye redness, or pain, no recent vision changes Resp: No SOB, no cough Cardio: No palpitations/irregular beats, no chest pain GI: No abdominal pain, no nausea/vomiting : Denies pain on urination Skin: + jaundiced, + psoriasis; No itching or new rashes Neuro: reports slightly slow word finding, slightly slow thinking Physical Exam Constitutional: well developed, + ill appearing (chronically) and + thin Eyes: icterus; PEARLA ENMT: external ear and nose normal, oropharynx normal Neck: trachea midline, no thyromegaly Respiratory: normal respiratory effort, lungs clear to auscultation Cardiovascular: RRR, no murmur, no edema Gastrointestinal (Abdomen): normal bowel sounds, soft, nontender, no hepatosplenomegaly no ascites Skin: +jaundice; rash of psoriasis Neurologic: no asterixes Psychiatric: A+Ox3, euthymic affect Results & Data ([facility]) Vital Signs (Past 12 Hours) Vital Signs Temp Pulse Pulse Resp BP Pulse Ox O2 Del Method 08/01/22 07:56 36.7 C 69 18 128/63 97 Room Air 08/01/22 03:24 36.5 C 75 14 137/68 97 Room Air 07/31/22 23:00 85 07/31/22 22:46 37.1 C 73 14 116/57 L 96 Room Air Laboratory Results WBC 3.7, Hb 7.3, HCT 21, PLT S 68, sodium 140, K4.0, CL 112, CO2 22, BUN 31, CR 1.47, glucose 118 TB 5.5, AST 58, ALT 29, alk phos 144, ammonia 128. Diagnostic Findings GB US 07/30/22: Cirrhosis and moderate ascites. No focal liver mass. Abd US 07/27/22: Trace ascites within the abdominal right lower quadrant.
[2022-08-01 08:57] LABS: Albumin Level 2.8 gm/dl (3.4-5.0); BUN Creatinine Ratio 21.1 (10-20); Bilirubin,Total 5.5 mg/dl (0.2-1.0); Calcium 8.1 mg/dl (8.5-10.1); Creatinine Clr Calc Pharmacy 46.9 ml/min; Est GFR (African American) 54.5 ml/min; Globulin 2.9 gm/dl (2.5-4.0); Total Protein 5.7 gm/dl (6.0-8.3)
[2022-08-01] MEDS ORDERED: LACTULOSE SYRUP 10 GM/15 ML BTL 960 ML PO SCH ×2 (09:00)
[2022-08-01] MEDS: rifAXIMin 550 MG TABLET PO SCH ×2 (09:44→20:42)
[2022-08-01] MEDS: allopurinoL 100 MG TAB PO SCH ×2 (09:44→20:42)
[2022-08-01] MEDS: CITALOPRAM 20 MG TAB PO SCH (09:44)
[2022-08-01] MEDS: FINASTERIDE 5 MG TAB PO SCH (09:44)
[2022-08-01] MEDS: PANTOprazole 40 MG TAB PO SCH (09:44)
[2022-08-01] MEDS: FUROSEMIDE 20 MG TAB PO SCH (09:45)
[2022-08-01] MEDS: DOCUSATE SODIUM 100 MG CAP PO SCH ×2 (09:46→20:43)
[2022-08-01] MEDS: SPIRONOLACTONE 25 MG TAB PO SCH (09:46)
[2022-08-01] MEDS: LANTUS PER UNIT CHARGE SQ SCH (09:59)
[2022-08-01] MEDS ORDERED: SODIUM CHLORIDE 0.9% 250 ML IV PRN ×2 (12:08→17:09)
[2022-08-01] MEDS: LACTULOSE SYRUP 10 GM/15 ML BTL 960 ML PO SCH ×2 (14:40→20:43)
[2022-08-01] MEDS ORDERED: FUROSEMIDE INJ 20 MG/2 ML VIAL IV ONE ×2 (17:10→20:46)
--- NOTE | 2022-08-01 17:11 | Hospitalist Progress Note ---
Date of Service August 01, 2022 Assessment & Plan (1) Hyperosmolar hyperglycemic state (HHS): (2) T2DM (type 2 diabetes mellitus): (3) Liver disease: (4) Esophageal varices: (5) Prostate cancer: (6) CKD (chronic kidney disease) stage 3, GFR 30-59 ml/min: (7) Anemia of chronic disease: (8) GERD (gastroesophageal reflux disease): (9) Cirrhosis: Plan Patient is a 72 yr male who presented to the [facility] from home with increased thirst and some blurry vision, diagnosed with HHS. On arrival, he was found to have a serum glucose of 744 and Na+ level of 125. The patient has a quite complex PMH that includes: DM2 (diet management), liver cirrhosis (on transplant list at [facility]) s/p TIPS, prostate CA (2019 [place] 3+3 on Eligard s/p XRT), esophageal varices, Anemia of Chronic disease, GERD, and CKD3. The patient does receive infrequent abdominal paracentesis. The patient is AAOx4 and able to converse in no apparent distress. He denies any PHELPS, dizziness, CP, palpitations, N/V/D, muscle movement changes, concentration changes, appetite changes. Patient will be admitted to medicine service for further evaluation and management of his hyperglycemia and other ailments. 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 Moore for Palliative Medicine; last telemedicine appt 07/24. Takes Lactulose PRN; continue Monitor LFTs Hyperbilirubinemia worsened from baseline Discussed with GI on 07/30 Gall bladder USD: Cirrhosis and moderate ascites. No focal liver mass. Needs follows with GI as outpatient Increase lactulose to titrate to 3-4 good BMs per day LUCRETIA on CKD III Resolved with IV fluids Monitor renal function Cr 1.4 today Prostate Cancer Diagnosed 2019 [place] 3+3 on Eligard s/p XRT Anemia of chronic disease Hgb 7.3 H/O Rectal Bleeding H/O hemorrhoids, radiation proctitis, diverticulosis Type and cross, monitor H&H and transfuse PRBC as needed Plan for outpatient EGD in October 2022 Reports intermittent minimal rectal bleed Will transfuse 1 unit PRBC today GERD Continue PPI Psoriasis Monitor DVT Px: SCDs Code Status Full Code Disposition Rehab as able Admission and Anticipated Discharge Date Admission Date: July 26, 2022 Subjective Patient is seen and examined at bedside States feeling very sleepy today Denies any recurrence of rectal bleed Denies any chest pain, shortness of breath, dizziness, nausea, abdominal pain Discussed with GI today Ammonia is elevated Review of Systems Review of Systems: All systems reviewed & are unremarkable except as noted in Subjective Physical Exam Physical Exam: Physical Exam: Vitals signs as noted above General Appearance:Moderately built and nourished, no apparent distress Head: normocephalic, Atraumatic Eyes: normal inspection, EOMI Neck: supple, Trachea midline Respiratory/Chest: Normal breath sounds, CTA, No accessory muscle use Cardiovascular: S1, S2, +murmur Abdomen/GI:Soft, Non tender, +Protuberant, Bowel sounds present Extremities/Musculoskeletal:normal inspection, no edema Neurologic/Psych:AAOX3, grossly no focal neurological deficits Skin: normal color, warm, +Spider Naevi Results & Data Results & Data ([facility]) Vital Signs (Past 12 Hours) Vital Signs Temp Pulse Pulse Resp BP Pulse Ox O2 Del Method 08/01/22 16:08 36.6 C 77 19 157/68 H 99 Room Air 08/01/22 15:33 68 08/01/22 12:08 36.8 C 63 19 156/65 H 96 Room Air 08/01/22 07:56 36.7 C 69 18 128/63 97 Room Air Laboratory Results Short CBC 08/01/22 Range/Units 05:58 WBC 3.73 L (4.8-10.8) K/ul Hgb 7.3 L (14.0-18.0) g/dl Hct 21.9 L (40.1-51.0) % Plt Count 68 L (130-400) K/uL BMP 08/01/22 08/01/22 05:58 08:24 Sodium 140 Potassium 4.0 Chloride 112 H Carbon Dioxide 22 BUN 31 H Creatinine 1.50 H 1.47 H Glucose 118 H Calcium 8.1 L Liver Function 08/01/22 Range/Units 08:24 Total Bilirubin 5.5 H (0.2-1.0) mg/dl AST 58 H (13-39) U/L ALT 29 (7-52) U/L Alkaline Phosphatase 144 H (34-104) U/L Albumin 2.8 L (3.4-5.0) gm/dl (1) GERD (gastroesophageal reflux disease) Esophagitis presence: esophagitis presence not specified Qualified Code(s): K21.9 - Gastro-esophageal reflux disease without esophagitis (2) Cirrhosis Ascites presence: without ascites Hepatic cirrhosis type: unspecified hepatic cirrhosis Qualified Code(s): K74.60 - Unspecified cirrhosis of liver
[2022-08-01] MEDS: MIRTAZAPINE TAB 15 MG TAB PO SCH (20:42)
[2022-08-01 22:36] LABS: Hematocrit (blood only) 28.1 % (40.1-51.0); Hemoglobin 9.6 g/dl (14.0-18.0)
[2022-08-02] MEDS: allopurinoL 100 MG TAB PO SCH ×3 (04:32→22:01)
[2022-08-02] MEDS: MIRTAZAPINE TAB 15 MG TAB PO SCH (04:32)
[2022-08-02] MEDS: rifAXIMin 550 MG TABLET PO SCH ×3 (04:32→22:01)
[2022-08-02 07:30] LABS: Hematocrit (blood only) 27.7 % (40.1-51.0); Hemoglobin 9.4 g/dl (14.0-18.0); Mean Platelet Volume 10.6 fL (9.4-12.4); Platelet Count 65 K/uL (130-400); White Blood Count 4.91 K/ul (4.8-10.8)
[2022-08-02 07:53] LABS: Albumin Level 3.2 gm/dl (3.4-5.0); BUN Creatinine Ratio 20.5 (10-20); Bilirubin,Total 7.1 mg/dl (0.2-1.0); Calcium 8.4 mg/dl (8.5-10.1); Creatinine Clr Calc Pharmacy 44.2 ml/min; Est GFR (African American) 50.7 ml/min; Est GFR (Non-African American) 43.7 ml/min; Globulin 3.2 gm/dl (2.5-4.0); Potassium 4.3 mmol/L (3.5-5.1); Total Protein 6.4 gm/dl (6.0-8.3)
[2022-08-02 08:00] LABS: Mean Corpuscular Hemoglobin 33.7 pg (25.0-34.0); Mean Corpuscular Hgb Conc 33.9 g/dL (32.0-36.0); Mean Corpuscular Volume 99.3 fL (80.0-100.0); RDW Coefficient of Variation 19.7 % (11.5-14.5); RDW Standard Deviation 69.2 fL (36.4-46.3); Red Blood Count 2.79 M/uL (4.63-6.08)
[2022-08-02] MEDS ORDERED: LACTULOSE 200GM/700ML WTR ENEMA PR SCH (09:15)
[2022-08-02] MEDS: LACTULOSE SYRUP 10 GM/15 ML BTL 960 ML PO SCH ×6 (10:08→21:07)
[2022-08-02] MEDS: FUROSEMIDE 20 MG TAB PO SCH (10:14)
[2022-08-02] MEDS: DOCUSATE SODIUM 100 MG CAP PO SCH ×2 (10:15→22:01)
[2022-08-02] MEDS: PANTOprazole 40 MG TAB PO SCH (10:15)
[2022-08-02] MEDS: FINASTERIDE 5 MG TAB PO SCH (10:15)
[2022-08-02] MEDS: SPIRONOLACTONE 25 MG TAB PO SCH (10:15)
[2022-08-02] MEDS: CITALOPRAM 20 MG TAB PO SCH (10:15)
[2022-08-02] MEDS: INSULIN ASPART PER UNIT SC SCH ×4 (10:20→21:06)
[2022-08-02 10:38] LABS: INR 1.2 (0.9-1.1); Prothrombin Time 12.5 Seconds (9.0-12.0)
[2022-08-02] MEDS: LANTUS PER UNIT CHARGE SQ SCH (10:38)
[2022-08-02] MEDS ORDERED: ACETAMINOPHEN 65 ML IV ONE (10:59)
[2022-08-02] MEDS ORDERED: PIPERACILLIN/TAZOBACTAM 3.375 GM in DEXTROSE 5% 100 ML IV ONE (11:30)
--- NOTE | 2022-08-02 11:48 | XRay Report ---
XR chest 1V portable CLINICAL HISTORY: fever COMPARISON STUDY: Chest radiograph July 26, 2022. FINDINGS: Lung volumes are mildly diminished. No pneumothorax or pleural effusion is noted. No consol idation is identified. Mild cardiomegaly is unchanged. There is pulmonary vascular congestion. IMPRESSION: Mild cardiomegaly with pulmonary vascular congestion. No overt pulmonary edema. ACT 112: Negative or not required by law. Electronically signed by: Elan Alexander M.D. 08/02/2022 11:47 AM
--- NOTE | 2022-08-02 12:18 | CT Scan Report ---
CT head/brain wo con CLINICAL HISTORY: Change in mental status Technique: Contiguous axial CT images of the head were acquired from the base of the skull to the jennifer ayana without intravenous contrast administration. Images were viewed in brain, subdural and bone [facility]. Automated dose lowering techniques and/or adjustment according to patient size were utilized for this exam. Comparison: None available at the time of this dictation. Findings: Areas of decreased attenuation are present in the periventricular and subcortical white matter bilate rally consistent with small vessel ischemic disease. Generalized cerebral atrophy with commensurate e nlargement of the ventricles, sulci, and cisterns is also present. There is no acute intracranial hem orrhage or evidence of acute territorial infarction. No shift of the midline structures, mass effect, or extra-axial abnormalities are shown. Atherosclerotic calcifications are present in the intracran ial segments of the internal carotid arteries. There is thickening of the left maxillary sinus. The orbits appear normal. There are no acute fractu res of the calvaria or scalp swelling. Impression: 1. No acute intracranial hemorrhage, no evidence of acute territorial infarction or other acute intr acranial disease process. 2. Left maxillary sinusitis. ACT 112: Negative or not required by law. Electronically signed by: Arik Flowers M.D. 08/02/2022 12:17 PM
[2022-08-02] MEDS ORDERED: Nursing to Pharmacy Communication SCH (12:30)
[2022-08-02] MEDS ORDERED: LANTUS PER UNIT CHARGE SQ ONE (12:45)
[2022-08-02 14:05] LABS: Appearance Urine Clear (Clear); Bacteria Urine Automated Negative (Negative); Bilirubin Urine Negative (Negative); Blood Urine 3+ (Negative); Color Urine Dark Yellow; Glucose Urine UA Negative (Negative); Ketones Urine Negative (Negative); Leukocyte Esterase Urine Negative (Negative); Nitrite Urine Negative (Negative); Protein Urine Negative (Negative); RBC Urine Automated >30 /hpf (0-4); Specific Gravity Urine 1.018 (1.000-1.030); Urobilinogen Urine Negative (Negative)
--- NOTE | 2022-08-02 14:22 | Pharmacy Report ---
Pharmacy Glycemic Short Note 2 - Date of Service August 02, 2022 - Glycemic Short BSG Results (Last 24 hours): 08/01/22 08/01/22 08/02/22 16:57 20:41 07:21 Glucose 124 H POC Glucose 187 H 95 08/02/22 08/02/22 07:51 11:29 Glucose POC Glucose 144 H 228 H OUTPATIENT ANTIDIABETIC REGIMEN: * None - diet controlled * HbA1c = 9.1% (07/27/22) ASSESSMENT: 08/02/22 * Patient received 107 units of insulin yesterday (40 units of basal and 67 units of prandial/correctional bolus) * BSGs reasonably controlled yesterday, 122, 141, 187, and 95 mg/dL * Patient reportedly had mental status change this morning and has not eaten breakfast or lunch * Will empirically reduce basal insulin today by 25% 07/31/22 * Morning Lantus inadvertently held on morning of 07/29 so only half daily dose of basal given that day * Gave full daily basal dose in the morning yesterday to account for this - will continue once daily basal * BSGs understandably elevated yesterday, ranging 120-280 mg/dL * Novolog tightened - will continue, fasting BSGs remain elevated, will increase Lantus today 07/29/22 * Patient's BSGs yesterday were [phone] mg/dl. Patient received 105 units of insulin (32 units of basal and 73 units of bolus). * Fasting today is 162 mg/dL. * Increase Lantus to 17 units BID. * Tightened CR at dinnertime to 3. BSGs corrected minimally between dinner and bedtime. Tighten Novolog further. BACKGROUND * 72 yo M admitted secondary to hyperglycemia. Patient found to be in HHS upon presentation. Pharmacy was consulted to transition patient off insulin drip to subcutaneous basal-bolus insulin as well as assist with inpatient glycemic management. Patient has a history of T2DM but is not on any pharmacotherapy at this time. Appears he was on Metformin and Glimepiride in the past with good control. * Initial labs: BSG 744 mg/dL, K 4.5 mmol/L, CO2 17 mmol/L, AG 12, VBG pH 7.41. Received 1 L of NS in ED followed by Normosol at 250 mL/hr x 1 bag. Started on an insulin drip at 8.2 units/hr along with an initial 8.2 unit IV bolus. BSGs improved rapidly: [phone] mg/dL. Was given a 15 unit dose of Lantus around 0100. During overlap of drip and basal, BSGs continued to improve: 151-155-110 mg/dL. Drip was shut off around 0500 and patient was successfully transitioned. * Labs from this AM: BSG 175 mg/dL, K 4.1 mmol/L, CO2 24 mmol/L, AG 5, VBG pH 7.41. * Patient was started on basal bolus insulin based on weight/stress of 2. Started on a clear liquid diet. Likely will need new medications for T2DM upon discharge given A1c. PLAN FOR INPATIENT GLYCEMIC CONTROL: * Basal insulin - decrease * Lantus 30 units SC daily * Bolus insulin * NovoLog per scale ACHS or Q6hrs while NPO * Goal Range: Low 110 mg/dL - High 140 mg/dL * Correction Factor: 12 mg/dL/unit * Nutritional / Prandial insulin per carb ratio of 1 unit per 2 grams CHO consumed
--- NOTE | 2022-08-02 14:48 | Gastroenterology Progress Note ---
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 No evidence of GI bleeding T to 39.9 thus infection likely the trigger: Blood cx drawn, CXR w/o signs of infection. COVID (-). US w mild ascites in RLQ - will order dx tap for tomorrow to r/o SBP though rare when only small amts of ascites. Urine Cx pending. Urine w blood but likely false positive due to bilirubin. Plan Will arrange dx tap for tomorrow. Recheck CBC, CMP, INR, ammonia tomorrow. Will watch for blood/urine cx. Early today, we Increased the lactulose to Q 2hrs. Nurses instructed to give po if awake and if not then to give via enema. Will continue. Will continue to follow closely. Admission and Anticipated Discharge Date Admission Date: July 26, 2022 Supervising Physician Co-Signing Physician Notes Attg add: I interviewed and examined pt, reviewed chart and labs. Pt with worsenig encephalopathy today, and he was febrile earlier today. Started on Zosyn. His labs show UA that is dirty, Bili 7, WBC of 4.9. Head CT neg. Agree with empiric abx. Remeron held. Will increase lactulose. Subjective Pt was seen early this morning and again mid day w Dr Duncan. Minimally responsive during both visits. Nursing tells me he had refused at least one dose of lactulose last night. 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 The nurse this morning was able to wake him to take some lactulose. I ordered Lactulose 20Gms Q 2 hrs until alert to be given po if able and if not able then by enema. He is able to respond to his name but not able to provide much communication. 1 bt asterix present. Cr is 1.5 (baseline 1.3) Ammonia 64 today, which is improved compared to yesterday though mental status worsened. Review of Systems Review of Systems: ROS: Not obtainable from the pt. Physical Exam Constitutional: well developed, + ill appearing (chronically) and + thin ENMT: external ear and nose normal, oropharynx normal Neck: trachea midline, no thyromegaly Respiratory: normal respiratory effort, lungs clear to auscultation Cardiovascular: RRR, no murmur, no edema Gastrointestinal (Abdomen): normal bowel sounds, soft, nontender, no hepatosplenomegaly Skin: Jaundice; rash of psoriasis Neurologic: + confused and + obtunded (nearly) Motor/Sensory: + asterixis Psychiatric: A+Ox3, euthymic affect Results & Data ([facility]) Vital Signs (Past 12 Hours) Vital Signs Temp Pulse Resp BP Pulse Ox O2 Del Method 08/02/22 13:57 37.4 C 08/02/22 12:00 39.0 C H 74 16 157/69 H 100 08/02/22 10:51 39.3 C H 08/02/22 08:00 36.9 C 80 16 149/70 H 98 08/02/22 03:55 37.0 C 73 18 160/67 H 97 Room Air Laboratory Results T BIli 9.2 yesterday ->10 AST 59->54 ALT 17->16 Alk PHos 65->57. WBC 4.8, Hb 9.4, Hct 27, Plts 65, Na 140 K 4.3, Cl 111, CO2 20, BUN 32, Cr 1.56. Diagnostic Findings CT head today w/o acute changes US w ascites in the RLQ, trace elsewhere
--- NOTE | 2022-08-02 15:36 | Hospitalist Progress Note ---
Date of Service August 02, 2022 Assessment & Plan (1) Hyperosmolar hyperglycemic state (HHS): (2) T2DM (type 2 diabetes mellitus): (3) Liver disease: (4) Esophageal varices: (5) Prostate cancer: (6) CKD (chronic kidney disease) stage 3, GFR 30-59 ml/min: (7) Anemia of chronic disease: (8) GERD (gastroesophageal reflux disease): (9) Cirrhosis: Plan Patient is a 72 yr male who presented to the [facility] from home with increased thirst and some blurry vision, diagnosed with HHS. On arrival, he was found to have a serum glucose of 744 and Na+ level of 125. The patient has a quite complex PMH that includes: DM2 (diet management), liver cirrhosis (on transplant list at [facility]) s/p TIPS, prostate CA (2019 [place] 3+3 on Eligard s/p XRT), esophageal varices, Anemia of Chronic disease, GERD, and CKD3. The patient does receive infrequent abdominal paracentesis. The patient is AAOx4 and able to converse in no apparent distress. He denies any PHELPS, dizziness, CP, palpitations, N/V/D, muscle movement changes, concentration changes, appetite changes. Patient will be admitted to medicine service for further evaluation and management of his hyperglycemia and other ailments. HHS Uncontrolled DM II Not on any meds prior to admission HbA1C:9.1 Anion Gap Metabolic Acidosis secondary to above Pseudohyponatremia due to hyperglycemia Insulin gtt>>transitioned to SQ Insulin Received IV fluids Appreciate Glycemic Pharmacy help Replace electrolytes as needed Anion Gap closed, Metabolic acidosis resolved as well Tolerating diet Consulted Analytical Tech Continue Insulin per Protocol Monitor BGs Likely plan to discharge to Rehab as able Cirrhosis of Liver GAVE Esophageal varices H/O Portal Vein Thrombosis On transplant list at [facility]. 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 Moore for Palliative Medicine; last telemedicine appt 07/24. Takes Lactulose PRN; continue Monitor LFTs Hyperbilirubinemia worsened from baseline Gall bladder USD: Cirrhosis and moderate ascites. No focal liver mass. Needs follows with GI as outpatient Increase lactulose to titrate to 3-4 good BMs per day Appreciate GI input Altered Mental status Likely acute metabolic encephalopathy due to decompensated cirrhosis Fever Unclear source of infection. DD: Sinusisits on imaging -CT head:No acute intracranial hemorrhage, no evidence of acute territorial infarction or other acute intracranial disease process. Left maxillary sinusitis. -CXR:Mild cardiomegaly with pulmonary vascular congestion. No overt pulmonary edema. -Repeat COVID Screen negative -Blood Cx pending -UA not suggestive of UTI --GI following for FOFANA cirrhosis -Neuro Check Requested -Continue Lactulose -Neurology consulted -Low threshold to obtain ABG -Empirically started on Zosyn LUCRETIA on CKD III Resolved with IV fluids Monitor renal function Cr 1.5 today Prostate Cancer Diagnosed 2019 [place] 3+3 on Eligard s/p XRT Anemia of chronic disease Hgb 9.4 today S/P 1 unit PRBCs H/O Rectal Bleeding H/O hemorrhoids, radiation proctitis, diverticulosis Reports intermittent minimal rectal bleed Type and cross, monitor H&H and transfuse PRBC as needed Plan for outpatient EGD in October 2022 Monitor CBC GERD Continue PPI Psoriasis Monitor DVT Px: SCDs Code Status Full Code Disposition Rehab as able Admission and Anticipated Discharge Date Admission Date: July 26, 2022 Subjective Patient is seen and examined at bedside Noted change in mental status by RN this morning Patient very drowsy this morning CT head showed no acute intracranial process He refused Lactulose overnight Also noted to be febrile today Updated patient's over the phone Review of Systems Review of Systems: Other Physical Exam Physical Exam: Physical Exam: Vitals signs as noted above General Appearance:Moderately built and nourished, no apparent distress Head: normocephalic, Atraumatic Eyes: normal inspection, EOMI Neck: supple, Trachea midline Respiratory/Chest: Normal breath sounds, CTA, No accessory muscle use Cardiovascular: S1, S2, +murmur Abdomen/GI:Soft, Non tender, +Protuberant, Bowel sounds present Extremities/Musculoskeletal:normal inspection, no edema Neurologic/Psych:AA, grossly no focal neurological deficits, Confused Skin: normal color, warm, +Spider Nevi Results & Data Results & Data ([facility]) Vital Signs (Past 12 Hours) Vital Signs Temp Pulse Resp BP Pulse Ox O2 Del Method 08/02/22 13:57 37.4 C 08/02/22 12:00 39.0 C H 74 16 157/69 H 100 08/02/22 10:51 39.3 C H 08/02/22 08:00 36.9 C 80 16 149/70 H 98 08/02/22 03:55 37.0 C 73 18 160/67 H 97 Room Air Laboratory Results Short CBC 08/01/22 08/02/22 Range/Units 22:24 07:21 WBC 4.91 (4.8-10.8) K/ul Hgb 9.6 L 9.4 L (14.0-18.0) g/dl Hct 28.1 L 27.7 L (40.1-51.0) % Plt Count 65 L (130-400) K/uL BMP 08/02/22 07:21 Sodium 140 Potassium 4.3 Chloride 111 H Carbon Dioxide 20 L BUN 32 H Creatinine 1.56 H Glucose 124 H Calcium 8.4 L Liver Function 08/02/22 Range/Units 07:21 Total Bilirubin 7.1 H (0.2-1.0) mg/dl AST 75 H (13-39) U/L ALT 38 (7-52) U/L Alkaline Phosphatase 202 H (34-104) U/L Albumin 3.2 L (3.4-5.0) gm/dl Urine 08/02/22 Range/Units 13:23 Urine Color Dark Yellow Urine Appearance Clear (Clear) Urine pH 5.0 (4.5-7.5) Ur Specific Mcgregor 1.018 (1.000-1.030) Urine Protein Negative (Negative) Urine Glucose (UA) Negative (Negative) (1) GERD (gastroesophageal reflux disease) Esophagitis presence: esophagitis presence not specified Qualified Code(s): K21.9 - Gastro-esophageal reflux disease without esophagitis (2) Cirrhosis Ascites presence: without ascites Hepatic cirrhosis type: unspecified hepatic cirrhosis Qualified Code(s): K74.60 - Unspecified cirrhosis of liver
--- NOTE | 2022-08-02 16:09 | Ultrasound Report ---
US abdomen ltd ascites CLINICAL HISTORY: hepatic encephalopathy; ? ascites TECHNIQUE: Real-time grayscale sonographic images of the abdomen were obtained. Comparison: Comparison is made to abdominal ultrasound 07/27/2022 FINDINGS/IMPRESSION: Ascites is seen in the right lower quadrant, slightly more prominent than on 07/03. Trace ascites is seen in the remaining quadrants. ACT 112: Negative or not required by law. Electronically signed by: Arik Flowers M.D. 08/02/2022 4:07 PM
--- NOTE | 2022-08-02 16:14 | Neurology Consultation ---
Date of Consultation August 02, 2022 Assessment & Plan (1) Encephalopathy acute: (2) Liver cirrhosis secondary to DALTON: (3) Esophageal varices: (4) Anemia of chronic disease: (5) Hyperosmolar hyperglycemic state (HHS): (6) GI (gastrointestinal bleed): (7) Acute lower GI bleeding: (8) CKD (chronic kidney disease) stage 3, GFR 30-59 ml/min: Plan ASSESSMENT and PLAN/RECOMMENDATIONS: 1. Altered mental status, due to multifactorial encephalopathy, primarily hepatic. Impression: The patient has multiple potential causes of encephalopathy, including cirrhosis. Recently change of mental status, with fever. There is no clinical finding to suggest focal neurological deficit or COLLECTIONS MANAGER infection. Recent spiking fever is concerning for infectious process. Nonconvulsive seizures should be ruled out. Plan: EEG to evaluate for nonconvulsive seizures. Rule out infectious process with pancultures. If altered mental status persists, then we will consider brain MRI in 2 days. Management of metabolic derangements including hyperammonemia. We will follow the patient is with you. Thank you for the consultation. History of Present Illness Reason for Consultation: [facility] Requesting Physician: Tavo Paul MD Attending Physician: Tavo Paul MD History of Present Illness The patient is a 72-year-old gentleman, with history of Dalton cirrhosis, and waiting list for liver transplant, who was admitted to hospital with HHS. Hospital stay has been complicated with elevated ammonia, electrolyte abnormalities, hyperglycemia, and fluctuating mental status. His mental status was initially improving. According to nursing staff, the patient was awake and yesterday morning, but since then, he has been very lethargic, confused, with slurring speech. He also had spiking fever, and pancultures were sent. COVID- 19 test was negative. Chest x-ray was unremarkable. Urine culture was also negative. Blood cultures are still pending. There has been no focal neurological deficit other than cognitive changes. Head CT without contrast did not show acute intracranial pathology. There has been no clinical tonic-clonic activity. Because of recently worsening altered mental status, neurology consultation is requested. I have reviewed the patient's chart including imaging studies and visualized them personally. I have discussed the case with nursing staff. Allergies Allergy/AdvReac Type Severity Reaction Status Date / Time No Known Allergies Allergy Mild Verified 04/12/22 08:58 Home Medications Medication Instructions Recorded Confirmed Type citalopram 10 mg tablet (Celexa) 10 mg PO QAM 03/24/20 07/26/22 History omeprazole 40 mg capsule,delayed 40 mg PO QAM 03/24/20 07/26/22 History release allopurinol 100 mg tablet 100 mg PO BID 05/16/20 07/26/22 History rifaximin 550 mg tablet (Xifaxan) 550 mg PO BID 12/08/20 07/26/22 History finasteride 5 mg tablet 5 mg PO QAM 11/03/21 07/26/22 History lactulose 10 gram/15 mL oral See Rx Instructions .Route 03/13/22 07/26/22 History solution .COMPLEX PRN Constipation furosemide 20 mg tablet 20 mg PO QAM 07/26/22 07/26/22 History mirtazapine 30 mg tablet 30 mg PO HS 07/26/22 07/26/22 History spironolactone 25 mg tablet 25 mg PO QAM 07/26/22 07/26/22 History Patient History Medical History Anemia Anemia of chronic disease Cardiac cirrhosis Cirrhosis 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 CKD (chronic kidney disease) stage 3, GFR 30-59 ml/min DVT prophylaxis Esophageal varices Esophageal varices GAVE (gastric antral vascular ectasia) GERD (gastroesophageal reflux disease) Gout NO ISSUES CURRENTLY History of panic attacks Hyperosmolar hyperglycemic state (HHS) Hypertension Prostate cancer (11/10/20) Psoriasis Rectal bleeding Shortness of breath Upper GI bleed Surgical History History of abdominal paracentesis multiple---pt states last was 6 months ago History of colonoscopy with polypectomy History of esophagogastroduodenoscopy (EGD) last 10/25 revealed grade 2 esophageal varices, grade 1 gastric varices STABLE History of prostate biopsy malignant History of tonsillectomy and adenoidectomy S/P TIPS (transjugular intrahepatic portosystemic shunt) Family History Father , "3/4 liver gone due to drinking" Colorectal cancer, Onset Age: 63 Mother Lung cancer Daughter Cancer cervical and thyroid cancers Ovarian cancer Other No family history of adverse response to anesthesia 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 Smoking Status: Never smoker Second Hand Exposure: No; Hx Alcohol Use: No Hx Substance Use: No Preferred Language: Turkmen Communication Ability: Effective Visual Impairment: No Limitations Hearing Ability: Normal Lmft Required: No Beliefs That Will Affect Care: None marital status: Current Living Situation: Spouse 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 How many Children do You have: 6 How many Children do You have Comment: one , eldest daughter in her sleep from seizure disorder Other Information That Helps Us Care for You: No Feels Safe at Home: Yes Safety Concerns: Feels Safe At This Time Childhood Exposure to Second-Hand Smoke: Yes Diet Comment: "I watch my sugar, average fasting is 140 mg/dl" caffeine: Yes (cola, sugar free, decaf) during the past year weight has: remained stable Dental Care, Regularly: No Physical Activity Frequency: Does not Exercise Seatbelt Use: always Sunscreen Use: Yes Assistive Devices: Walker Review of Systems Review of Systems: Unobtainable due to cognitive status Physical Exam Physical Exam: General Examination: Constitutional: Well developed person in no acute distress. HENT: Normal exam with inspection. CV: Hearth rhtyhm is regular. Neck: Supple, no carotid bruits. Lungs: Non-labored and comfortable breathing. Abdomen: Soft, non-tende but distended. Skin: No rash or ecchymosis but icterus. Extremities: No edema or cyanosis NEUROLOGICAL EXAMINATION: Mental Status: Lethargic and disoriented. Cranial Nerves: II-XII are intact grossly. No nystagmus. Funduscopy: Not assessed Motor: Poor cooperation but moves all extremities to tactile stimuli without asymmetry Tone: Normal without spasticity or rigidity. Sensory: Feels pinprick in all extremities Coordination: Unable to assess Speech: Slurred with mumbling. Follows some of verbal commands. Positive eye contact. Gait: Unable to assess Musculoskeletal: Normal muscle bulk, no atrophy. No tremor. DTRs are diminished but symmetrical. No Babinski. Results & Data ([facility]) Vital Signs (Past 12 Hours) Vital Signs Temp Pulse Resp BP Pulse Ox 08/02/22 13:57 37.4 C 08/02/22 12:00 39.0 C H 74 16 157/69 H 100 08/02/22 10:51 39.3 C H 08/02/22 08:00 36.9 C 80 16 149/70 H 98 Laboratory Results Laboratory Results - last 24 hr 08/01/22 08/01/22 08/01/22 12:19 16:57 20:41 WBC RBC Hgb Hct MCV MCH MCHC RDW Std Deviation RDW Coeff of [place] Plt Count MPV PT INR Sodium Potassium Chloride Carbon Dioxide Anion Gap BUN Creatinine Est Cr Clr Drug Dosing Est GFR ( Amer) Est GFR (Non-Af Amer) BUN/Creatinine Ratio Glucose POC Glucose 187 H 95 Calcium Total Bilirubin AST ALT Alkaline Phosphatase Ammonia Total Protein Albumin Globulin Albumin/Globulin Ratio Urine Color Urine Appearance Urine pH Ur Specific [place] Urine Protein Urine Glucose (UA) Urine Ketones Urine Blood Urine Nitrite Urine Bilirubin Urine Urobilinogen Ur Leukocyte Esterase Urine WBC (Auto) Urine RBC (Auto) U Hyaline Cast (Auto) U Epithel Cells (Auto) Urine Bacteria (Auto) SARS-CoV-2 (PCR) Blood Type O Positive Antibody Screen NEGATIVE Crossmatch See Detail 08/01/22 08/02/22 08/02/22 22:24 07:21 07:21 WBC RBC Hgb 9.6 L Hct 28.1 L MCV MCH MCHC RDW Std Deviation RDW Coeff of [place] Plt Count MPV PT INR Sodium 140 Potassium 4.3 Chloride 111 H Carbon Dioxide 20 L Anion Gap 9 BUN 32 H Creatinine 1.56 H Est Cr Clr Drug Dosing 44.2 Est GFR ( Amer) 50.7 Est GFR (Non-Af Amer) 43.7 BUN/Creatinine Ratio 20.5 H Glucose 124 H POC Glucose Calcium 8.4 L Total Bilirubin 7.1 H AST 75 H ALT 38 Alkaline Phosphatase 202 H Ammonia 64.0 Total Protein 6.4 Albumin 3.2 L Globulin 3.2 Albumin/Globulin Ratio 1.0 Urine Color Urine Appearance Urine pH Ur Specific [place] Urine Protein Urine Glucose (UA) Urine Ketones Urine Blood Urine Nitrite Urine Bilirubin Urine Urobilinogen Ur Leukocyte Esterase Urine WBC (Auto) Urine RBC (Auto) U Hyaline Cast (Auto) U Epithel Cells (Auto) Urine Bacteria (Auto) SARS-CoV-2 (PCR) Blood Type Antibody Screen Crossmatch 08/02/22 08/02/22 08/02/22 07:21 07:51 09:46 WBC 4.91 RBC 2.79 L Hgb 9.4 L Hct 27.7 L MCV 99.3 MCH 33.7 MCHC 33.9 RDW Std Deviation 69.2 H RDW Coeff of [place] 19.7 H Plt Count 65 L MPV 10.6 PT 12.5 H INR 1.2 H Sodium Potassium Chloride Carbon Dioxide Anion Gap BUN Creatinine Est Cr Clr Drug Dosing Est GFR ( Amer) Est GFR (Non-Af Amer) BUN/Creatinine Ratio Glucose POC Glucose 144 H Calcium Total Bilirubin AST ALT Alkaline Phosphatase Ammonia Total Protein Albumin Globulin Albumin/Globulin Ratio Urine Color Urine Appearance Urine pH Ur Specific [place] Urine Protein Urine Glucose (UA) Urine Ketones Urine Blood Urine Nitrite Urine Bilirubin Urine Urobilinogen Ur Leukocyte Esterase Urine WBC (Auto) Urine RBC (Auto) U Hyaline Cast (Auto) U Epithel Cells (Auto) Urine Bacteria (Auto) SARS-CoV-2 (PCR) Blood Type Antibody Screen Crossmatch 08/02/22 08/02/22 08/02/22 10:54 11:29 13:23 WBC RBC Hgb Hct MCV MCH MCHC RDW Std Deviation RDW Coeff of [place] Plt Count MPV PT INR Sodium Potassium Chloride Carbon Dioxide Anion Gap BUN Creatinine Est Cr Clr Drug Dosing Est GFR ( Amer) Est GFR (Non-Af Amer) BUN/Creatinine Ratio Glucose POC Glucose 228 H Calcium Total Bilirubin AST ALT Alkaline Phosphatase Ammonia Total Protein Albumin Globulin Albumin/Globulin Ratio Urine Color Dark Yellow Urine Appearance Clear Urine pH 5.0 Ur Specific [place] 1.018 Urine Protein Negative Urine Glucose (UA) Negative Urine Ketones Negative Urine Blood 3+ H Urine Nitrite Negative Urine Bilirubin Negative Urine Urobilinogen Negative Ur Leukocyte Esterase Negative Urine WBC (Auto) 1-5 Urine RBC (Auto) >30 H U Hyaline Cast (Auto) 1-5 U Epithel Cells (Auto) 5-10 H Urine Bacteria (Auto) Negative SARS-CoV-2 (PCR) NEGATIVE Blood Type Antibody Screen Crossmatch Diagnostic Findings Chest X-Ray 07/26/22 14:33 SINGLE VIEW CHEST CLINICAL HISTORY: Generalized weakness. Change in mental status. FINDINGS: An AP, portable, upright chest radiograph is compared to study dated 03/01/2022. The examination is degraded by portable technique and apical lordotic positioning. The heart is enlarged noting atherosclerotic calcification of the thoracic aorta. The pulmonary vasculature is noncongested. There is mild eleva tion of the left hemidiaphragm with bibasilar atelectasis. The lungs and pleural spaces are otherwise clear. No pneumothorax is seen. The skeletal structures are osteopenic. The bony thorax is grossly intact. Arthritic change is seen in the shoulders. IMPRESSION: Mild cardiomegaly with no active disease in the chest. ACT 112: Negative or not required by law. Electronically signed by: Scott Yepez M.D. 07/26/2022 2:59 PM Abdomen Ultrasound 07/27/22 17:53 US abdomen ltd ascites HISTORY: 72 years-old Male ascites check follow-up study in a patient with abdominal ascites COMPARISON: 05/24/2022 TECHNIQUE: Multiple real time sonographic images of the abdomen were obtained assessing grayscale appearance FINDINGS/IMPRESSION: Trace ascites within the abdominal right lower quadrant. ACT 112: Negative or not required by law. The above report was generated using voice recognition software. It may contain grammatical, syntax or spelling errors. Electronically signed by: Yovany Gonzalez M.D. 07/27/2022 9:11 AM Gallbladder Ultrasound 07/30/22 12:17 US gallbladder CLINICAL HISTORY: Hyperbilirubinemia TECHNIQUE: Multiple real-time sonographic images of the right upper quadrant were obtained. Comparison: None available at the time of this dictation. FINDINGS: The liver is diffusely coarsened in echotexture, with a nodular contour. The liver appears shrunken in appearance. These findings are suggestive of cirrhosis. No focal mass lesions are seen. No intrahepatic ductal dilatation is seen. No gallstones or sludge are identified within the gallbladder. The gallbladder wall is not thickened. There is no pericholecystic fluid present. A sonographic Banuelos's sign was not elicited by the casing runner. The common duct measures 0.4 cm in diameter at the level of the hepatic artery. The visualized portions of the pancreas appear normal. The right kidney shows normal echogenicity, cortical thickness and renal contour. The right kidney shows no evidence of hydronephrosis or mass. Moderate ascites is noted. IMPRESSION: Cirrhosis and moderate ascites. No focal liver mass. ACT 112: Negative or not required by law. Electronically signed by: Arik Flowers M.D. 07/30/2022 10:27 PM Chest X-Ray 08/02/22 10:53 XR chest 1V portable CLINICAL HISTORY: fever COMPARISON STUDY: Chest radiograph July 26, 2022. FINDINGS: Lung volumes are mildly diminished. No pneumothorax or pleural effusion is noted. No consolidation is identified. Mild cardiomegaly is unchanged. There is pulmonary vascular congestion. IMPRESSION: Mild cardiomegaly with pulmonary vascular congestion. No overt pulmonary edema. ACT 112: Negative or not required by law. Electronically signed by: Elan Alexander M.D. 08/02/2022 11:[address] 08/02/22 10:53 CT head/brain wo con CLINICAL HISTORY: Change in mental status Technique: Contiguous axial CT images of the head were acquired from the base of the skull to the vertex without intravenous contrast administration. Images were viewed in brain, subdural and bone windows. Automated dose lowering techniques and/or adjustment according to patient size were utilized for this exam. Comparison: None available at the time of this dictation. Findings: Areas of decreased attenuation are present in the periventricular and subcortical white matter bilaterally consistent with small vessel ischemic disease. Generalized cerebral atrophy with commensurate enlargement of the ventricles, sulci, and cisterns is also present. There is no acute intracranial hemorrhage or evidence of acute territorial infarction. No shift of the midline structures, mass effect, or extra-axial abnormalities are shown. Atherosclerotic calcifications are present in the intracranial segments of the internal carotid arteries. There is thickening of the left maxillary sinus. The orbits appear normal. There are no acute fractures of the calvaria or scalp swelling. Impression: 1. No acute intracranial hemorrhage, no evidence of acute territorial infarction or other acute intracranial disease process. 2. Left maxillary sinusitis. ACT 112: Negative or not required by law. Electronically signed by: Arik Flowers M.D. 08/02/2022 12:17 PM Abdomen Ultrasound 08/02/22 14:00 US abdomen ltd ascites CLINICAL HISTORY: hepatic encephalopathy; ? ascites TECHNIQUE: Real-time grayscale sonographic images of the abdomen were obtained. Comparison: Comparison is made to abdominal ultrasound 07/27/2022 FINDINGS/IMPRESSION: Ascites is seen in the right lower quadrant, slightly more prominent than on 07/27/2022. Trace ascites is seen in the remaining quadrants. ACT 112: Negative or not required by law. Electronically signed by: Arik Flowers M.D. 08/02/2022 4:07 PM (1) GI (gastrointestinal bleed) GI bleed type/associated pathology: unspecified gastrointestinal hemorrhage type Qualified Code(s): K92.2 - Gastrointestinal hemorrhage, unspecified
[2022-08-02] MEDS ORDERED: SODIUM CHLORIDE 0.9% 1000ML 1,000 ML IV ONE (17:16)
[2022-08-02] MEDS: PIPERACILLIN/TAZOBACTAM 3.375 GM in DEXTROSE 5% 100 ML IV SCH (17:24)
[2022-08-02] MEDS ORDERED: LACTULOSE SYRUP 10 GM/15 ML BTL 960 ML PR SCH (21:39)
[2022-08-02] MEDS: LACTULOSE 200GM/700ML WTR ENEMA PR SCH (23:54)
[2022-08-03] MEDS: PIPERACILLIN/TAZOBACTAM 3.375 GM in DEXTROSE 5% 100 ML IV SCH (01:45)
[2022-08-03] MEDS: LACTULOSE 200GM/700ML WTR ENEMA PR SCH ×3 (03:51→10:41)
[2022-08-03 04:26] LABS: A calco-baum cmplx NotReported Not Detected (NotDetected); Bact fragilis Not Reported Not Detected (NotDetected); C auris Not Reported Not Detected (NotDetected); Calbicans Not Reported Not Detected (NotDetected); Candida glabrata Not Reported Not Detected (NotDetected); Candida krusei Not Reported Not Detected (NotDetected); Cneoformans/gatti Not Reported Not Detected (NotDetected); Cparapsilosis Not Reported Not Detected (NotDetected); Ctropicalis Not Reported Not Detected (NotDetected); E cloacae compx Not Reported Not Detected (NotDetected); Efaecalis Not Reported Not Detected (NotDetected); Efaecium Not Reported Not Detected (NotDetected); Enterobacterales Not Reported Not Detected (NotDetected); Escherichia coli Not Reported Not Detected (NotDetected); H influenzae Not Reported Not Detected (NotDetected); K aerogenes Not Reported Not Detected (NotDetected); Koxytoca Not Reported Not Detected (NotDetected); Kpneumoniae grp Not Reported Not Detected (NotDetected); Lmonocyt Not Reported Not Detected (NotDetected); N meningitidis Not Reported Not Detected (NotDetected); P aeruginosa Not Reported Not Detected (NotDetected); Proteus spp Not Reported Not Detected (NotDetected); Salmonella spp Not Reported Not Detected (NotDetected); Smarcescens Not Reported Not Detected (NotDetected); Staph lugdunensis Not Reported Not Detected (NotDetected); Staph spp. Not Reported DETECTED (NotDetected); Staphaureus Not Reported DETECTED (NotDetected); Staphepi Not Reported Not Detected (NotDetected); Staphylococcus spp. DETECTED (NotDetected); Stenmaltophilia Not Reported Not Detected (NotDetected); Strep agal(GrpB) Not Reported Not Detected (NotDetected); Strep pneum Not Reported Not Detected (NotDetected); Strep pyog (GrpA) Not Reported Not Detected (NotDetected); Strep spp Not Reported Not Detected (NotDetected); mecAC+MREJ Resistant Gene MRSA Not Detected (NotDetected)
[2022-08-03] MEDS ORDERED: VANCOMYCIN HCL 1,500 MG in SODIUM CHLORIDE 0.9% 500 ML IV ONE (05:33)
[2022-08-03] MEDS ORDERED: VANCOMYCIN CONSULT ACTIVE PRN (05:33)
[2022-08-03] MEDS ORDERED: ceFAZolin 1000MG 1,000 MG/7.5 ML SYR IV SCH (06:00)
[2022-08-03 06:04] LABS: Hematocrit (blood only) 28.1 % (40.1-51.0); Hemoglobin 9.5 g/dl (14.0-18.0); Mean Platelet Volume 10.4 fL (9.4-12.4); Platelet Count 68 K/uL (130-400); White Blood Count 3.77 K/ul (4.8-10.8)
[2022-08-03 06:18] LABS: Albumin Level 2.9 gm/dl (3.4-5.0); BUN Creatinine Ratio 18.6 (10-20); Bilirubin,Total 8.5 mg/dl (0.2-1.0); Creatinine Clr Calc Pharmacy 35.5 ml/min; Est GFR (African American) 38.9 ml/min; Est GFR (Non-African American) 33.6 ml/min; Total Protein 5.9 gm/dl (6.0-8.3)
[2022-08-03 06:56] LABS: Mean Corpuscular Hemoglobin 33.6 pg (25.0-34.0); Mean Corpuscular Hgb Conc 33.8 g/dL (32.0-36.0); Mean Corpuscular Volume 99.3 fL (80.0-100.0); RDW Coefficient of Variation 19.5 % (11.5-14.5); RDW Standard Deviation 68.8 fL (36.4-46.3); Red Blood Count 2.83 M/uL (4.63-6.08)
[2022-08-03] MEDS: INSULIN ASPART PER UNIT SC SCH ×4 (08:51→20:28)
[2022-08-03] MEDS: LANTUS PER UNIT CHARGE SQ SCH (08:52)
[2022-08-03] MEDS: CITALOPRAM 20 MG TAB PO SCH (10:13)
[2022-08-03] MEDS: FINASTERIDE 5 MG TAB PO SCH (10:13)
[2022-08-03] MEDS: PANTOprazole 40 MG TAB PO SCH (10:13)
[2022-08-03] MEDS: DOCUSATE SODIUM 100 MG CAP PO SCH ×2 (10:13→20:26)
[2022-08-03] MEDS: rifAXIMin 550 MG TABLET PO SCH ×2 (10:14→20:25)
[2022-08-03] MEDS: allopurinoL 100 MG TAB PO SCH ×2 (10:14→20:26)
[2022-08-03] MEDS: SPIRONOLACTONE 25 MG TAB PO SCH (10:14)
--- NOTE | 2022-08-03 10:34 | CT Scan Report ---
CT SCAN OF THE ABDOMEN AND PELVIS WITHOUT IV CONTRAST CLINICAL HISTORY: Sepsis. Generalized abdominal pain. Hepatic encephalopathy. COMPARISON STUDY: Abdominal CT dated 12/02/2021. TECHNIQUE: CT scan of the abdomen and pelvis is performed from the lung bases to the proximal femora. Images are reviewed in the axial, sagittal, and coronal planes. IV contrast was not administered as per the referring clinician. Note that the examination was performed in significantly suboptimal on license of [facility] ion without oral and IV contrast. There is also motion artifact, and streak artifact from the arms wh ich could not be elevated above the abdomen. A dose lowering technique was utilized adhering to the p rinciples of KIMBERLY. CT DOSE: 685.04 mGy.cm FINDINGS: Lung bases: The heart is mildly enlarged and without pericardial effusion. The coronary arteries are densely calcified. There is diminished attenuation of the cardiac blood pool as compared to the myoca rdium suggesting anemia. The lung bases are clear noting bibasilar scarring/atelectasis. Gynecomastia is noted. Liver: The unenhanced liver is cirrhotic in morphology and heterogeneous in attenuation. There is hyp ertrophy of the left lobe and caudate, as well as nodularity of the hepatic surface contour. There is no intrahepatic biliary ductal dilatation. A TIPS catheter is in place. Gallbladder: Unremarkable. Spleen: The spleen is enlarged measuring 16.8 cm in length. Pancreas: The unenhanced pancreas is mildly atrophic. A 1.9 cm simple cystic lesion of the pancreatic head seen on image #176 is unchanged. This likely represents an IPMN versus mucinous cystic neoplasm . Adrenal glands: Unremarkable. Kidneys: The unenhanced kidneys are atrophic and without hydronephrosis. There are no renal calculi i dentified. There is no evidence of contour deforming renal mass lesion. Abdominal vasculature: The abdominal aorta is normal in course and caliber noting moderate atheroscle rotic calcification. Bowel: There is moderate colonic fecal retention. No bowel obstruction is seen. There is mild colonic diverticulosis without CT evidence of acute diverticulitis. The appendix is normal as visualized. Peritoneum: There is a small volume of abdominopelvic ascites. No intraperitoneal free air is seen. Lymphadenopathy: None. Pelvic viscera: The prostate gland is mildly enlarged and heterogeneous. The bladder is distended, an d the wall appears thickened/trabeculated indicating chronic outlet obstruction. There are small bila teral fat-containing inguinal hernias. Skeletal structures: The skeletal structures are osteopenic. There is a mild chronic superior endplat e compression fracture of L1. There is moderate lumbosacral spondylosis. No lytic or blastic lesions are seen. IMPRESSION: 1. Significantly suboptimal examination without oral and IV contrast. There is also streak and motion artifact. 2. The liver is cirrhotic in morphology and heterogeneous in attenuation. A TIPS catheter is in place . 3. Splenomegaly and a small volume of abdominopelvic ascites indicate portal hypertension. 4. Moderate constipation. 5. Additional findings as above. ACT 112: Negative or not required by law. Electronically signed by: Scott Yepez M.D. 08/03/2022 10:33 AM
--- NOTE | 2022-08-03 10:36 | Gastroenterology Progress Note ---
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 Continue antibiotics. Recommend gentle hydration to treat increasing creatinine., Has had poor p.o. intake for 24 hours. Plan Will watch for results of diagnostic tap We will arrange CT scan abdomen pelvis, no contrast. Recheck CBC, CMP, INR, ammonia tomorrow. Will watch for blood/urine cx. Lactulose 20gm QID. May hold if more than 3 loose bowel movements in 24 hours. Recommend gentle IV hydration to treat worsening Cr. Discussed w Dr. Avalos. Will continue to follow closely. Admission and Anticipated Discharge Date Admission Date: July 26, 2022 Supervising Physician Co-Signing Physician Notes Attgg reviewed -- I interviewed and examined pt, reviewed chart and labs. BCCx = GPC in cl, on ancef. CT shows no pathology Fluid studies neg for SBP, although tapped 24 hours after abx Regarding HE-- He appears much improved. Cont oral lactulose QID, Xifaxan. Regarding incr creat -- gentle fluid trial, hold diuretics. If cont rise - check U NA and consider albumin. Subjective Remains encephalopathic though was somewhat awake and able to take lactulose p.o. Indicated pain on palpation of the right lower quadrant on exam this morning. Bili increased total 8.5. Meld today 22. Creatinine worsened:1.9 today. Blood cultures growing gram positive cocci in clusters. On cefazolin. Review of Systems Review of Systems: ROS: Not obtainable from the pt. Physical Exam Constitutional: well developed, + ill appearing (chronically) and + thin ENMT: external ear and nose normal, oropharynx normal Neck: trachea midline, no thyromegaly Respiratory: normal respiratory effort, lungs clear to auscultation Cardiovascular: RRR, no murmur, no edema Gastrointestinal (Abdomen): Inspection/Auscultation: abdomen normal to inspection Mild ascites. Initially seemed very tender in the right lower quadrant, moaning when palpated there. Though not reproducible. Skin: Rash of psoriasis, Jaundice Neurologic: + confused and + obtunded (nearly) Motor/Sensory: + asterixis Psychiatric: A+Ox3, euthymic affect Results & Data ([facility]) Vital Signs (Past 12 Hours) Vital Signs Temp Pulse Pulse Resp BP BP Pulse Ox 08/03/22 08:00 38.0 C H 73 18 145/73 H 97 08/03/22 07:28 73 08/03/22 05:02 38.6 C H 08/03/22 03:40 39.4 C H 82 16 171/69 H 99 08/03/22 00:05 38.3 C H 08/02/22 23:03 37.2 C 86 16 154/70 H 95 08/02/22 23:16 O2 Del Method 08/03/22 08:00 Room Air 08/03/22 07:28 08/03/22 05:02 08/03/22 03:40 Room Air 08/03/22 00:05 08/02/22 23:03 Room Air 08/02/22 23:16 Room Air Laboratory Results WBC 3.7, Hb 9.5, HCT 28.1, PLT S 68, PT 12.5, INR 1.2, NA 1379, K4.0, CL 111, CO2 18, BUN 36, CR 1.9, glucose 173.
--- NOTE | 2022-08-03 11:03 | Neurology Progress Note ---
Date of Service August 03, 2022 Assessment & Plan (1) Encephalopathy acute: (2) Hepatic encephalopathy: (3) Expressive aphasia: (4) Proximal limb weakness: Plan this patient has had a history of acute encephalopathy which is likely due will wide variety of factors including hepatic, diabetic, and now sepsis. He is growing gram-positive cocci in clusters ( consistent with Staph) currently on cefazolin The patient has proximal muscle weakness on examination rigidity in his arms and legs without any tremor. He did have a little bit of masklike face ease and a parkinsonism cannot be entirely excluded. He is jaundiced on exam and has known cirrhosis. His ammonia was elevated on August 01 but it is more normal today. Overall, the most impressive feature on examination is his expressive aphasia. He has no other focal neurologic findings but I small stroke cannot be excluded. Metabolic abnormalities that cause encephalopathy, such as hepatic, can create focal neurologic findings as well Recommendations: 1. MRI of the brain to evaluate for small stroke. 2. Continue treating sepsis, and other abnormalities leading to encephalopathy as you are doing. 3. I do not believe this patient is having any seizure activity and I am not certain that an EEG will add anything to our diagnosis and treatment at this time. Therefore I will not order an EEG. Overall, I spent a total of 60 minutes with this case including review of records, review of CT scan films, direct evaluation the patient bedside, and discussing the case with the patient at bedside, RN at bedside, and Dr. Avalos including differential diagnosis and treatment options. Admission and Anticipated Discharge Date Admission Date: July 26, 2022 Subjective patient has no complaints of pain, weakness, numbness, vision problems, or headaches. He is somewhat thirsty this morning wants to drink water. Nursing reports that he has intermittent confusion. Blood pressure is 145/73 with a pulse of 70s. He is febrile and blood cultures have grown out gram-positive cocci in clusters -he is on cefazolin Labs reveal a significant anemia, but is improved compared to earlier in the admission. BUN and creatinine are elevated at 36 and 1.9. Glucose was 173. Calcium was low at 8 point. Total bili is elevated at 8.5, AST 87 and alk-phos 196. peritoneal fluid analysis is pending. Results & Data ([facility]) Vital Signs (Past 12 Hours) Vital Signs Temp Pulse Pulse Resp BP BP Pulse Ox 08/03/22 08:00 38.0 C H 73 18 145/73 H 97 08/03/22 07:28 73 08/03/22 05:02 38.6 C H 08/03/22 03:40 39.4 C H 82 16 171/69 H 99 08/03/22 00:05 38.3 C H 08/02/22 23:03 37.2 C 86 16 154/70 H 95 08/02/22 23:16 O2 Del Method 08/03/22 08:00 Room Air 08/03/22 07:28 08/03/22 05:02 08/03/22 03:40 Room Air 08/03/22 00:05 08/02/22 23:03 Room Air 08/02/22 23:16 Room Air Exam (Neuro) Physical Exam: He is awake and alert. He readily follows commands and is fluent with phrases and conversational words. He has a significant problem with naming objects or producing and noun to answer the question. He does seem to comprehend the question and is fairly fluent although occasionally he will have a little choppy [place] or hesitation. Occasionally he has a delayed answer as well. When given a choice of 3 answers to identify an object or answer a question, he usually gets it correct. Mood and affect are normal and appropriate. He does not display an overt dementia , but occasionally can be little confused. Extraocular eye muscles are intact without nystagmus. There is no facial droop. Tongue is midline. Sensation seem symmetrical in the face. Neck is supple. There are no abnormal involuntary movements noted and he does not have obvious tremor or ataxia. He does not have asterixis with his arms outstretched, but it was hard to elicit upper extremity movements fluidly because he had considerable stiffness in the arms. Motor strength is 4/5 proximally in the arms and 4+/ 5 distally in the arms. hip flexor seems close to 5/5 bilaterally but hamstrings are difficult to as certain in may be closer to 4/5 bilaterally. Gastrocnemius are 5/5. Tibialis anterior are difficult for him to maneuver and therefore assess. Reflexes are 2/4 in the biceps, triceps, and brachioradialis tendons bilaterally. The quadriceps tendons are 1/4 in the Achilles are absent. Toes are clearly downgoing with plantar stimulation bilaterally. Skin is clearly jaundiced in his face PG Care Time/CCT Total # of Minutes Spent Total Time Spent with Patient: Total time spent is greater than 50% in coordination of care (as documented) at patient's floor/unit and/or counseling patient: Coding Level of Care Code 03858 Subseq Hosp Care Lvl 3 Diagnoses Encephalopathy acute G93.40 Hepatic encephalopathy K72.90 Expressive aphasia R47.01 Proximal limb weakness M62.89 Time Spent (min) 60 Comment add modifiers as able
--- NOTE | 2022-08-03 11:23 | Ultrasound Report ---
ULTRASOUND GUIDED DIAGNOSTIC PARACENTESIS CLINICAL HISTORY: fever, hepatic encephalopathy COMPARISON STUDY: Abdominal ultrasound August 02, 2022. PROCEDURE: A small amount of ascites within the left lower quadrant was noted. Amount of ascites is d iminished since ultrasound of August 02, 2022. The risks, benefits, and alternatives to the procedu re were discussed with the patient's given patient's altered mental status including the risk of bleeding, infection and injury to adjacent structures. She agreed to the procedure and informed writ ten consent was obtained. Following real-time ultrasound localization, the skin of the left lower berta drant was prepped and draped. Following local anesthesia with Xylocaine, a 3 1/2 inch 18-gauge spinal needle was directed into the ascites. Only 10 cc of serosanguineous ascites could be aspirated given minimal fluid. The patient tolerated the procedure well and no immediate complications were evident. IMPRESSION: Ultrasound-guided diagnostic paracentesis with aspiration of 10 cc of serosanguineous as cites. No additional fluid could be aspirated given minimal fluid. Fluid sent to the laboratory for a nalysis as ordered. ACT 112: Negative or not required by law. Electronically signed by: Elan Alexander M.D. 08/03/2022 11:21 AM
[2022-08-03] MEDS: SODIUM CHLORIDE 0.9% 1000ML 1,000 ML IV SCH (12:30)
[2022-08-03 12:31] LABS: Appearance Peritoneal Fluid Hazy; Color Peritoneal Fluid Orange; Lymphocytes, Fluid 68 %; Mono,Macrophage,Mesothelial 24 %; Neutrophils, Fluid 8 %; RBC Peritoneal Fluid (A) 22000 /uL; WBC Peritoneal Fluid (A) 742 /ul (0-300)
[2022-08-03] MEDS: LACTULOSE SYRUP 20 GM/30 ML UDC PO SCH ×3 (12:31→20:25)
[2022-08-03] MEDS: ceFAZolin 1000MG 1,000 MG/7.5 ML SYR IV SCH (13:12)
--- NOTE | 2022-08-03 15:40 | Hospitalist Progress Note ---
Date of Service August 03, 2022 Assessment & Plan (1) Hyperosmolar hyperglycemic state (HHS): (2) T2DM (type 2 diabetes mellitus): (3) Liver disease: (4) Esophageal varices: (5) Prostate cancer: (6) CKD (chronic kidney disease) stage 3, GFR 30-59 ml/min: (7) Anemia of chronic disease: (8) GERD (gastroesophageal reflux disease): (9) Cirrhosis: Plan Patient is a 72 yr male who presented to the [facility] from home with increased thirst and some blurry vision, diagnosed with HHS. On arrival, he was found to have a serum glucose of 744 and Na+ level of 125. The patient has a quite complex PMH that includes: DM2 (diet management), liver cirrhosis (on transplant list at [facility]) s/p TIPS, prostate CA (2019 [place] 3+3 on Eligard s/p XRT), esophageal varices, Anemia of Chronic disease, GERD, and CKD3. The patient does receive infrequent abdominal paracentesis. The patient is AAOx4 and able to converse in no apparent distress. He denies any PHELPS, dizziness, CP, palpitations, N/V/D, muscle movement changes, concentration changes, appetite changes. Patient will be admitted to medicine service for further evaluation and management of his hyperglycemia and other ailments. 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 Moore for Palliative Medicine; last telemedicine appt 07/24. Takes Lactulose PRN; continue Hyperbilirubinemia worsened from baseline Gall bladder USD: Cirrhosis and moderate ascites. No focal liver mass. Needs follows with GI as outpatient Increase lactulose to titrate to 3-4 good BMs per day Has been having diarrhea and will adjust lactulose dose Generally weak but no hepatic flap on examination Gram-positive bacteremia Altered Mental status Likely acute metabolic encephalopathy due to decompensated cirrhosis Decompensation is due to [id number] bacteremia Unclear source of infection. DD: Sinusisits on imaging -CT head:No acute intracranial hemorrhage, no evidence of acute territorial infarction or other acute intracranial disease process. Left maxillary sinusitis. -CXR:Mild cardiomegaly with pulmonary vascular congestion. No overt pulmonary edema. -Repeat COVID Screen negative -Blood Cx pending -gram-positive cocci in cluster final identification is pending -UA not suggestive of UTI --GI following for FOFANA cirrhosis -Has been on Zosyn and that changed to intravenous cefazolin -We will consult ID Expressive aphasia Could be secondary to hepatic and colopathy/decompensated cirrhosis -Neurology consulted-appreciate input and recommendation -Low threshold to obtain ABG -We will have MRI scan to rule out any stroke LUCRETIA on CKD III Resolved with IV fluids Monitor renal function Cr 1.5 today Prostate Cancer Diagnosed 2019 [place] 3+3 on Eligard s/p XRT Anemia of chronic disease Hgb 9.4 today S/P 1 unit PRBCs H/O Rectal Bleeding H/O hemorrhoids, radiation proctitis, diverticulosis Reports intermittent minimal rectal bleed Type and cross, monitor H&H and transfuse PRBC as needed Plan for outpatient EGD in October 2022 Monitor CBC GERD Continue PPI Psoriasis Monitor DVT Px: SCDs Code Status Full Code Disposition Rehab as able Admission and Anticipated Discharge Date Admission Date: July 26, 2022 Subjective 08/03/2022 The patient was seen and examined in medical floor He has significant dysphagia mostly expressive and finding words Denies any fever, any chills, any abdominal pain, nausea no vomiting Has been having diarrhea Remains generally weak Review of Systems Review of Systems: All systems reviewed and are unremarkable except as noted below Physical Exam Physical Exam: Lying in bed comfortably Constitutional: well developed, well nourished, + ill appearing and average body habitus Eyes: PERRL, conjunctivae normal, anicteric sclerae ENMT: external ear and nose normal, oropharynx normal Neck: trachea midline, no thyromegaly Cardiovascular: Rate/Rhythm: regular rate and regular rhythm; not tachycardic Heart Sounds: normal S1 and normal S2; no murmur Extremities: + edema (Trace edema bilaterally) Gastrointestinal (Abdomen): Inspection/Auscultation: normal bowel sounds; abdomen not distended Percussion/Palpation: + abdomen tender (Minimally tender all over) and abdomen soft Musculoskeletal: No acute arthritis in any joint Neurologic: Alert and awake. Generally weak. No hepatic flap. Significant expressive aphasia Lymphatic: no cervical or axillary lymphadenopathy Results & Data Results & Data ([facility]) Vital Signs (Past 12 Hours) Vital Signs Temp Pulse Pulse Resp BP BP Pulse Ox 08/03/22 12:10 36.8 C 67 151/67 H 96 08/03/22 11:36 36.9 C 66 148/68 H 97 08/03/22 08:00 38.0 C H 73 18 145/73 H 97 08/03/22 07:28 73 08/03/22 05:02 38.6 C H 08/03/22 03:40 39.4 C H 82 16 171/69 H 99 O2 Del Method 08/03/22 12:10 Room Air 08/03/22 11:36 08/03/22 08:00 Room Air 08/03/22 07:28 08/03/22 05:02 08/03/22 03:40 Room Air Laboratory Results Short CBC 08/03/22 Range/Units 05:40 WBC 3.77 L (4.8-10.8) K/ul Hgb 9.5 L (14.0-18.0) g/dl Hct 28.1 L (40.1-51.0) % Plt Count 68 L (130-400) K/uL BMP 08/03/22 05:40 Sodium 139 Potassium 4.0 Chloride 111 H Carbon Dioxide 18 L BUN 36 H Creatinine 1.94 H D Glucose 173 H Calcium 8.0 L Liver Function 08/03/22 Range/Units 05:40 Total Bilirubin 8.5 H (0.2-1.0) mg/dl AST 87 H (13-39) U/L ALT 46 (7-52) U/L Alkaline Phosphatase 196 H (34-104) U/L Albumin 2.9 L (3.4-5.0) gm/dl Medications Administered Current Inpatient Medications Allopurinol (Allopurinol 100 Mg Tab) 100 mg PO BID JODI Stop: 08/25/22 21:33 Last Admin: 08/03/22 10:14 Dose: 100 mg Citalopram Hydrobromide (Citalopram 20 Mg Tab) 10 mg PO QAM JODI Stop: 08/26/22 08:59 Last Admin: 08/03/22 10:13 Dose: 10 mg Dextrose (Dextrose 50% 50 Ml Syringe) 25 - 50 ml IV UD PRN; Protocol PRN Reason: Hypoglycemia Protocol Stop: 08/25/22 15:59 Docusate Sodium (Docusate Sodium 100 Mg Cap) 100 mg PO BID [facility] Stop: 08/29/22 14:44 Last Admin: 08/03/22 10:13 Dose: 100 mg Finasteride (Finasteride 5 Mg Tab) 5 mg PO QAM [facility] Stop: 08/26/22 08:59 Last Admin: 08/03/22 10:13 Dose: 5 mg Furosemide (Furosemide 20 Mg Tab) 20 mg PO QAM [facility] Stop: 08/27/22 09:29 Last Admin: 08/02/22 10:14 Dose: 20 mg Glucagon (Glucagon For Inj 1 Mg Vial) 1 mg IM UD PRN; Protocol PRN Reason: Hypoglycemia Protocol Stop: 08/25/22 15:59 Glucose (Glucose 40% Gel 15 Gm Tube) 15 - 30 gm PO UD PRN; Protocol PRN Reason: Hypoglycemia Protocol Stop: 08/25/22 15:59 Glucose (Glucose 10 Tab/Tube) 4 - 8 tab PO UD PRN; Protocol PRN Reason: Hypoglycemia Protocol Stop: 08/25/22 15:59 Cefazolin Sodium (Ancef 1000mg) 1,000 mg in 7.5 mls @ 2.5 mls/min IV Q8H JODI; Protocol Stop: 08/17/22 05:59 Last Admin: 08/03/22 13:12 Dose: 2.5 mls/min Sodium Chloride (Nss 1000ml) 1,000 mls @ 80 mls/hr IV .[id number] [facility] Stop: 08/05/22 00:59 Last Admin: 08/03/22 12:30 Dose: 80 mls/hr Insulin Aspart (Insulin Aspart Per Unit) 0 units SC ACHS [facility]; Protocol Stop: 08/26/22 03:59 Last Admin: 08/03/22 13:25 Dose: 12 units Insulin Glargine (Lantus Per Unit Charge) 30 units SQ DAILY [facility]; Protocol Stop: 09/02/22 08:59 Last Admin: 08/03/22 08:52 Dose: 30 units Lactulose (Lactulose Syrup 20 Gm/30 Ml Udc) 20 gm PO QID [facility] Stop: 09/02/22 12:59 Last Admin: 08/03/22 12:31 Dose: 20 gm Mirtazapine (Mirtazapine Tab 15 Mg Tab) 30 mg PO HS JODI Stop: 08/25/22 21:33 Last Admin: 08/02/22 04:32 Dose: Not Given Miscellaneous (Carbohydrates For Hypoglycemia ) 15 - 30 gm PO UD PRN PRN Reason: Hypoglycemia Treatment Stop: 08/25/22 15:59 Miscellaneous Information (Pharmacy Glycemic Mgmt Consult) 1 each N/A UD PRN PRN Reason: Consult Stop: 08/25/22 15:27 Pantoprazole Sodium (Pantoprazole 40 Mg Tab) 40 mg PO QAM [facility] Stop: 08/26/22 08:59 Last Admin: 08/03/22 10:13 Dose: 40 mg Polyethylene Glycol (Polyethylene (Miralax) 17 Gm Pack) 17 gm PO DAILY PRN PRN Reason: Constipation Stop: 08/29/22 14:30 Rifaximin (Rifaximin 550 Mg Tablet) 550 mg PO BID [facility] Stop: 08/25/22 21:33 Last Admin: 08/03/22 10:14 Dose: 550 mg Spironolactone (Spironolactone 25 Mg Tab) 25 mg PO QAM JODI Stop: 08/27/22 09:29 Last Admin: 08/03/22 10:14 Dose: 25 mg (1) Cirrhosis Ascites presence: without ascites Hepatic cirrhosis type: unspecified hepatic cirrhosis Qualified Code(s): K74.60 - Unspecified cirrhosis of liver (2) GERD (gastroesophageal reflux disease) Esophagitis presence: esophagitis presence not specified Qualified Code(s): K21.9 - Gastro-esophageal reflux disease without esophagitis
--- NOTE | 2022-08-03 21:08 | Magnetic Resonance Report ---
MR brain wo con CLINICAL HISTORY: R/O Stroke TECHNIQUE: Multiplanar and multisequence MR images of the brain were obtained without intravenous con trast. Comparison: Comparison is made to CT head 08/02/2022 FINDINGS: No abnormal restricted diffusion is identified. The white matter is unremarkable. The ventricular sys tem is normal in appearance. No mass is seen. There is no mass effect or midline shift. There is no e vidence of acute intraparenchymal hemorrhage. No extra axial fluid collections are seen. The corpus c allosum, pituitary gland, and cerebellar tonsils appear grossly unremarkable. Flow voids of the major intracranial arterial vessels are identified. Maxillary sinusitis is again noted. IMPRESSION: 1. No acute abnormality and in particular no evidence of acute infarct. 2. Left maxillary sinusitis is noted. ACT 112: Negative or not required by law. Electronically signed by: Arik Flowers M.D. 08/03/2022 9:06 PM
[2022-08-04] MEDS: SODIUM CHLORIDE 0.9% 1000ML 1,000 ML IV SCH ×2 (00:03→13:08)
[2022-08-04] MEDS: ceFAZolin 1000MG 1,000 MG/7.5 ML SYR IV SCH ×3 (00:03→13:09)
[2022-08-04 07:43] LABS: Basophils # (auto) 0.01 K/uL (0-0.2); Basophils % (auto) 0.3 %; Eosinophils % (auto) 8.8 %; Hematocrit (blood only) 25.4 % (40.1-51.0); Hemoglobin 8.6 g/dl (14.0-18.0); Immature Granulocytes # (auto) 0.02 K/uL (0.00-0.02); Immature Granulocytes % (auto) 0.6 %; Lymphocytes # (auto) 0.64 K/uL (1.2-3.4); Lymphocytes % (auto) 18.7 %; Mean Platelet Volume 10.1 fL (9.4-12.4); Monocytes # (auto) 0.46 K/uL (0.24-0.82); Monocytes % (auto) 13.5 %; Neutrophils # (auto) 1.99 K/uL (1.4-6.5); Neutrophils % (auto) 58.1 %; Platelet Count 65 K/uL (130-400); White Blood Count 3.42 K/ul (4.8-10.8)
[2022-08-04 08:05] LABS: Albumin Globulin Ratio 0.9 (0.9-2); Albumin Level 2.6 gm/dl (3.4-5.0); BUN Creatinine Ratio 22.4 (10-20); Bilirubin,Total 4.9 mg/dl (0.2-1.0); Calcium 7.7 mg/dl (8.5-10.1); Creatinine Clr Calc Pharmacy 44.2 ml/min; Est GFR (African American) 50.7 ml/min; Est GFR (Non-African American) 43.7 ml/min; Globulin 2.8 gm/dl (2.5-4.0); Magnesium 1.8 mg/dl (1.7-2.4); Potassium 4.1 mmol/L (3.5-5.1); Total Protein 5.4 gm/dl (6.0-8.3)
[2022-08-04 08:25] LABS: Mean Corpuscular Hemoglobin 33.6 pg (25.0-34.0); Mean Corpuscular Hgb Conc 33.9 g/dL (32.0-36.0); Mean Corpuscular Volume 99.2 fL (80.0-100.0); Polychromasia 1+; RDW Standard Deviation 68.9 fL (36.4-46.3); Red Blood Count 2.56 M/uL (4.63-6.08); Tear Drop Cells 1+
[2022-08-04] MEDS: FINASTERIDE 5 MG TAB PO SCH (08:39)
[2022-08-04] MEDS: rifAXIMin 550 MG TABLET PO SCH ×2 (08:39→20:16)
[2022-08-04] MEDS: allopurinoL 100 MG TAB PO SCH ×2 (08:39→20:15)
[2022-08-04] MEDS: DOCUSATE SODIUM 100 MG CAP PO SCH ×2 (08:39→20:16)
[2022-08-04] MEDS: CITALOPRAM 20 MG TAB PO SCH (08:40)
[2022-08-04] MEDS: PANTOprazole 40 MG TAB PO SCH (08:40)
[2022-08-04] MEDS: SPIRONOLACTONE 25 MG TAB PO SCH (08:40)
[2022-08-04] MEDS: LANTUS PER UNIT CHARGE SQ SCH (08:41)
[2022-08-04] MEDS: INSULIN ASPART PER UNIT SC SCH ×4 (08:41→20:17)
[2022-08-04] MEDS: LACTULOSE SYRUP 20 GM/30 ML UDC PO SCH ×4 (08:44→20:16)
--- NOTE | 2022-08-04 09:46 | Gastroenterology Progress Note ---
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 Not sure what that means at this point but is improved (2) Hepatic encephalopathy: Plan: Seems to be improving. Only problem now is sluggish to come up with answers Plan Only thing to do now is wait for treatment for encephalopathy to bring him back to normal. He seems close Admission and Anticipated Discharge Date Admission Date: July 26, 2022 Subjective 08/03/2022 The patient was seen and examined in medical floor Seems to be doing well. Thinking clearly albeit a little slowly. Alert and o riented to person, place, time and circumstances Review of Systems Review of Systems: All systems reviewed & are unremarkable except as noted in HPI & below Physical Exam Constitutional: + thin and + frail appearing Results & Data ([facility]) Vital Signs (Past 12 Hours) Vital Signs Temp Pulse Pulse Resp BP BP Pulse Ox 08/04/22 08:54 67 08/04/22 08:00 36.9 C 65 18 136/69 98 08/04/22 04:30 37.5 C 71 16 159/76 H 96 08/04/22 00:02 37.3 C 70 18 149/71 H 98 O2 Del Method 08/04/22 08:54 08/04/22 08:00 Room Air 08/04/22 04:30 Room Air 08/04/22 00:02 Room Air Laboratory Results 08/04/22 08/04/22 08/04/22 Range/Units 07:45 07:17 07:17 WBC 3.42 L (4.8-10.8) K/ul RBC 2.56 L (4.63-6.08) M/uL Hgb 8.6 L (14.0-18.0) g/dl Hct 25.4 L (40.1-51.0) % MCV 99.2 (80.0-100.0) fL MCH 33.6 (25.0-34.0) pg MCHC 33.9 (32.0-36.0) g/dL RDW Std Deviation 68.9 H (36.4-46.3) fL RDW Coeff of [place] 19.0 H (11.5-14.5) % Plt Count 65 L (130-400) K/uL MPV 10.1 (9.4-12.4) fL Immature Gran % (Auto) 0.6 % Neut % (Auto) 58.1 % Lymph % (Auto) 18.7 % [place] % (Auto) 13.5 % Eos % (Auto) 8.8 % Baso % (Auto) 0.3 % Neut # (Auto) 1.99 (1.4-6.5) K/uL Lymph # (Auto) 0.64 L (1.2-3.4) K/uL [place] # (Auto) 0.46 (0.24-0.82) K/uL Eos # (Auto) 0.30 (0-0.50) K/uL Baso # (Auto) 0.01 (0-0.2) K/uL Immature Gran # (Auto) 0.02 (0.00-0.02) K/uL Polychromasia 1+ Tear Drop Cells 1+ Sodium 137 (136-145) mmol/L Potassium 4.1 (3.5-5.1) mmol/L Chloride 112 H (98-107) mmol/L Carbon Dioxide 19 L (21-32) mmol/L Anion Gap 6 (3-11) BUN 35 H (6-23) mg/dl Creatinine 1.56 H D (0.6-1.4) mg/dl Est Cr Clr Drug Dosing 44.2 ml/min Est GFR ( Amer) 50.7 ml/min Est GFR (Non-Af Amer) 43.7 ml/min BUN/Creatinine Ratio 22.4 H (10-20) Glucose 102 H (70-99(Fasting)) mg/dl POC Glucose 113 H (70-99) mg/dl Calcium 7.7 L (8.5-10.1) mg/dl Magnesium 1.8 (1.7-2.4) mg/dl Total Bilirubin 4.9 H (0.2-1.0) mg/dl AST 63 H (13-39) U/L ALT 30 (7-52) U/L Alkaline Phosphatase 175 H (34-104) U/L Total Protein 5.4 L (6.0-8.3) gm/dl Albumin 2.6 L (3.4-5.0) gm/dl Globulin 2.8 (2.5-4.0) gm/dl Albumin/Globulin Ratio 0.9 (0.9-2) Fluid Neutrophils % % Fluid Lymphocytes % % Fluid Meso/Macro/[place] % % Fluid Comment Peritoneal Color Peritoneal Appearance Peritoneal WBC (0-300) /ul Peritoneal RBC /uL Crossmatch 08/03/22 08/03/22 08/03/22 Range/Units Unknown 20:28 17:04 WBC (4.8-10.8) K/ul RBC (4.63-6.08) M/uL Hgb (14.0-18.0) g/dl Hct (40.1-51.0) % MCV (80.0-100.0) fL MCH (25.0-34.0) pg MCHC (32.0-36.0) g/dL RDW Std Deviation (36.4-46.3) fL RDW Coeff of [place] (11.5-14.5) % Plt Count (130-400) K/uL MPV (9.4-12.4) fL Immature Gran % (Auto) % Neut % (Auto) % Lymph % (Auto) % [place] % (Auto) % Eos % (Auto) % Baso % (Auto) % Neut # (Auto) (1.4-6.5) K/uL Lymph # (Auto) (1.2-3.4) K/uL [place] # (Auto) (0.24-0.82) K/uL Eos # (Auto) (0-0.50) K/uL Baso # (Auto) (0-0.2) K/uL Immature Gran # (Auto) (0.00-0.02) K/uL Polychromasia Tear Drop Cells Sodium (136-145) mmol/L Potassium (3.5-5.1) mmol/L Chloride (98-107) mmol/L Carbon Dioxide (21-32) mmol/L Anion Gap (3-11) BUN (6-23) mg/dl Creatinine (0.6-1.4) mg/dl Est Cr Clr Drug Dosing ml/min Est GFR ( Amer) ml/min Est GFR (Non-Af Amer) ml/min BUN/Creatinine Ratio (10-20) Glucose (70-99(Fasting)) mg/dl POC Glucose 140 H 185 H (70-99) mg/dl Calcium (8.5-10.1) mg/dl Magnesium (1.7-2.4) mg/dl Total Bilirubin (0.2-1.0) mg/dl AST (13-39) U/L ALT (7-52) U/L Alkaline Phosphatase (34-104) U/L Total Protein (6.0-8.3) gm/dl Albumin (3.4-5.0) gm/dl Globulin (2.5-4.0) gm/dl Albumin/Globulin Ratio (0.9-2) Fluid Neutrophils % 8 % Fluid Lymphocytes % 68 % Fluid Meso/Macro/[place] % 24 % Fluid Comment Peritoneal Color [place] Peritoneal Appearance Hazy Peritoneal WBC 742 H (0-300) /[place] [address] /uL Crossmatch 08/03/22 08/01/22 Range/Units 11:50 12:19 WBC (4.8-10.8) K/ul RBC (4.63-6.08) M/uL Hgb (14.0-18.0) g/dl Hct (40.1-51.0) % MCV (80.0-100.0) fL MCH (25.0-34.0) pg MCHC (32.0-36.0) g/dL RDW Std Deviation (36.4-46.3) fL RDW Coeff of [place] (11.5-14.5) % Plt Count (130-400) K/uL MPV (9.4-12.4) fL Immature Gran % (Auto) % Neut % (Auto) % Lymph % (Auto) % [place] % (Auto) % Eos % (Auto) % Baso % (Auto) % Neut # (Auto) (1.4-6.5) K/uL Lymph # (Auto) (1.2-3.4) K/uL [place] # (Auto) (0.24-0.82) K/uL Eos # (Auto) (0-0.50) K/uL Baso # (Auto) (0-0.2) K/uL Immature Gran # (Auto) (0.00-0.02) K/uL Polychromasia Tear Drop Cells Sodium (136-145) mmol/L Potassium (3.5-5.1) mmol/L Chloride (98-107) mmol/L Carbon Dioxide (21-32) mmol/L Anion Gap (3-11) BUN (6-23) mg/dl Creatinine (0.6-1.4) mg/dl Est Cr Clr Drug Dosing ml/min Est GFR ( Amer) ml/min Est GFR (Non-Af Amer) ml/min BUN/Creatinine Ratio (10-20) Glucose (70-99(Fasting)) mg/dl POC Glucose 163 H (70-99) mg/dl Calcium (8.5-10.1) mg/dl Magnesium (1.7-2.4) mg/dl Total Bilirubin (0.2-1.0) mg/dl AST (13-39) U/L ALT (7-52) U/L Alkaline Phosphatase (34-104) U/L Total Protein (6.0-8.3) gm/dl Albumin (3.4-5.0) gm/dl Globulin (2.5-4.0) gm/dl Albumin/Globulin Ratio (0.9-2) Fluid Neutrophils % % Fluid Lymphocytes % % Fluid Meso/Macro/V[place]illion % % Fluid Comment Peritoneal Color Peritoneal Appearance Peritoneal WBC (0-300) /ul Peritoneal RBC /uL Crossmatch See Detail
--- NOTE | 2022-08-04 14:52 | Hospitalist Progress Note ---
Date of Service August 04, 2022 Assessment & Plan (1) Hyperosmolar hyperglycemic state (HHS): (2) T2DM (type 2 diabetes mellitus): (3) Liver disease: (4) Esophageal varices: (5) Prostate cancer: (6) CKD (chronic kidney disease) stage 3, GFR 30-59 ml/min: (7) Anemia of chronic disease: (8) GERD (gastroesophageal reflux disease): (9) Cirrhosis: Plan Patient is a 72 yr male who presented to the [facility] from home with increased thirst and some blurry vision, diagnosed with HHS. On arrival, he was found to have a serum glucose of 744 and Na+ level of 125. The patient has a quite complex PMH that includes: DM2 (diet management), liver cirrhosis (on transplant list at [facility]) s/p TIPS, prostate CA (2019 [place] 3+3 on Eligard s/p XRT), esophageal varices, Anemia of Chronic disease, GERD, and CKD3. The patient does receive infrequent abdominal paracentesis. The patient is AAOx4 and able to converse in no apparent distress. He denies any PHELPS, dizziness, CP, palpitations, N/V/D, muscle movement changes, concentration changes, appetite changes. Patient will be admitted to medicine service for further evaluation and management of his hyperglycemia and other ailments. HHS Uncontrolled DM II Not on any meds prior to admission HbA1C:9.1 Anion Gap Metabolic Acidosis secondary to above Pseudohyponatremia due to hyperglycemia Insulin gtt>>transitioned to SQ Insulin Received IV fluids Appreciate Glycemic Pharmacy help Replace electrolytes as needed Anion Gap closed, Metabolic acidosis resolved as well Tolerating diet Consulted Material Movers Continue Insulin per Protocol Likely plan to discharge to Rehab when able Blood sugar seems to be stable Cirrhosis of Liver GAVE Esophageal varices H/O Portal Vein Thrombosis On transplant list at [facility]. 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 Moore for Palliative Medicine; last telemedicine appt 07/24. Takes Lactulose PRN; continue Hyperbilirubinemia worsened from baseline Gall bladder USD: Cirrhosis and moderate ascites. No focal liver mass. Needs follows with GI as outpatient Increase lactulose to titrate to 3-4 good BMs per day Has been having diarrhea and will adjust lactulose dose Generally weak but no hepatic flap on examination Encephalopathy is improved a lot Gram-positive bacteremia Altered Mental status Likely acute metabolic encephalopathy due to decompensated cirrhosis Decompensation is due to [id number] bacteremia Unclear source of infection. DD: Sinusisits on imaging -CT head:No acute intracranial hemorrhage, no evidence of acute territorial infarction or other acute intracranial disease process. Left maxillary sinusitis. -CXR:Mild cardiomegaly with pulmonary vascular congestion. No overt pulmonary edema. -Repeat COVID Screen negative -Blood Cx pending -gram-positive cocci in cluster final identification is pending -UA not suggestive of UTI --GI following for FOFANA cirrhosis -Has been on Zosyn and that changed to intravenous cefazolin -We will consult ID Expressive aphasia Could be secondary to hepatic and colopathy/decompensated cirrhosis -Neurology consulted-appreciate input and recommendation -Low threshold to obtain ABG -We will have MRI scan to rule out any stroke-MRI was negative for any stroke -Dysphasia is much improved LUCRETIA on CKD III Resolved with IV fluids Monitor renal function Cr 1.5 today Prostate Cancer Diagnosed 2019 [place] 3+3 on Eligard s/p XRT Anemia of chronic disease Hgb 9.4 today S/P 1 unit PRBCs H/O Rectal Bleeding H/O hemorrhoids, radiation proctitis, diverticulosis Reports intermittent minimal rectal bleed Type and cross, monitor H&H and transfuse PRBC as needed Plan for outpatient EGD in October 2022 Monitor CBC GERD Continue PPI Psoriasis Monitor DVT Px: SCDs Code Status Full Code Disposition Rehab as able Admission and Anticipated Discharge Date Admission Date: July 26, 2022 Subjective 08/03/2022 The patient was seen and examined in medical floor He has significant dysphagia mostly expressive and finding words Denies any fever, any chills, any abdominal pain, nausea no vomiting Has been having diarrhea Remains generally weak 08/04/2022 The patient was seen and examined in medical telemetry unit He has been much better Only symptoms remaining is very minimal dysphagsia Review of Systems Review of Systems: All systems reviewed and are unremarkable except as noted below Physical Exam Physical Exam: Sitting on a chair without any acute distress Constitutional: well developed, well nourished, + ill appearing and average body habitus Eyes: PERRL, conjunctivae normal, anicteric sclerae ENMT: external ear and nose normal, oropharynx normal Neck: trachea midline, no thyromegaly Cardiovascular: Rate/Rhythm: regular rate and regular rhythm; not tachycardic Heart Sounds: normal S1 and normal S2; no murmur Extremities: + edema (Trace edema bilaterally) Gastrointestinal (Abdomen): Inspection/Auscultation: normal bowel sounds; abdomen not distended Percussion/Palpation: + abdomen tender (Minimally tender all over) and abdomen soft Musculoskeletal: No acute arthritis in any joint Neurologic: Alert, awake and oriented x3. Mild dysphasia Lymphatic: no cervical or axillary lymphadenopathy Results & Data Results & Data ([facility]) Vital Signs (Past 12 Hours) Vital Signs Temp Pulse Pulse Resp BP BP Pulse Ox 08/04/22 12:11 36.6 C 73 18 136/76 99 08/04/22 08:54 67 08/04/22 08:00 36.9 C 65 18 136/69 98 08/04/22 04:30 37.5 C 71 16 159/76 H 96 O2 Del Method 08/04/22 12:11 Room Air 08/04/22 08:54 08/04/22 08:00 Room Air 08/04/22 04:30 Room Air Laboratory Results Short CBC 08/04/22 Range/Units 07:17 WBC 3.42 L (4.8-10.8) K/ul Hgb 8.6 L (14.0-18.0) g/dl Hct 25.4 L (40.1-51.0) % Plt Count 65 L (130-400) K/uL BMP 08/04/22 07:17 Sodium 137 Potassium 4.1 Chloride 112 H Carbon Dioxide 19 L BUN 35 H Creatinine 1.56 H D Glucose 102 H Calcium 7.7 L Liver Function 08/04/22 Range/Units 07:17 Total Bilirubin 4.9 H (0.2-1.0) mg/dl AST 63 H (13-39) U/L ALT 30 (7-52) U/L Alkaline Phosphatase 175 H (34-104) U/L Albumin 2.6 L (3.4-5.0) gm/dl Medications Administered Current Inpatient Medications Allopurinol (Allopurinol 100 Mg Tab) 100 mg PO BID JODI Stop: 08/25/22 21:33 Last Admin: 08/04/22 08:39 Dose: 100 mg Citalopram Hydrobromide (Citalopram 20 Mg Tab) 10 mg PO QAM [facility] Stop: 08/26/22 08:59 Last Admin: 08/04/22 08:40 Dose: 10 mg Dextrose (Dextrose 50% 50 Ml Syringe) 25 - 50 ml IV UD PRN; Protocol PRN Reason: Hypoglycemia Protocol Stop: 08/25/22 15:59 Docusate Sodium (Docusate Sodium 100 Mg Cap) 100 mg PO BID [facility] Stop: 08/29/22 14:44 Last Admin: 08/04/22 08:39 Dose: Not Given Finasteride (Finasteride 5 Mg Tab) 5 mg PO QAM [facility] Stop: 08/26/22 08:59 Last Admin: 08/04/22 08:39 Dose: 5 mg Furosemide (Furosemide 20 Mg Tab) 20 mg PO QAM [facility] Stop: 08/27/22 09:29 Last Admin: 08/02/22 10:14 Dose: 20 mg Glucagon (Glucagon For Inj 1 Mg Vial) 1 mg IM UD PRN; Protocol PRN Reason: Hypoglycemia Protocol Stop: 08/25/22 15:59 Glucose (Glucose 40% Gel 15 Gm Tube) 15 - 30 gm PO UD PRN; Protocol PRN Reason: Hypoglycemia Protocol Stop: 08/25/22 15:59 Glucose (Glucose 10 Tab/Tube) 4 - 8 tab PO UD PRN; Protocol PRN Reason: Hypoglycemia Protocol Stop: 08/25/22 15:59 Sodium Chloride (Nss 1000ml) 1,000 mls @ 80 mls/hr IV .[id number] [facility] Stop: 08/05/22 00:59 Last Admin: 08/04/22 13:08 Dose: 80 mls/hr Cefazolin Sodium (Ancef 2000mg) 2,000 mg in 15 mls @ 3.75 mls/min IV Q8 [facility]; Protocol Stop: 08/18/22 21:59 Insulin Aspart (Insulin Aspart Per Unit) 0 units SC ACHS [facility]; Protocol Stop: 08/26/22 03:59 Last Admin: 08/04/22 12:59 Dose: 33 units Insulin Glargine (Lantus Per Unit Charge) 30 units SQ DAILY [facility]; Protocol Stop: 09/02/22 08:59 Last Admin: 08/04/22 08:41 Dose: 30 units Lactulose (Lactulose Syrup 20 Gm/30 Ml Udc) 20 gm PO QID [facility] Stop: 09/02/22 12:59 Last Admin: 08/04/22 13:05 Dose: 20 gm Mirtazapine (Mirtazapine Tab 15 Mg Tab) 30 mg PO HS [facility] Stop: 08/25/22 21:33 Last Admin: 08/02/22 04:32 Dose: Not Given Miscellaneous (Carbohydrates For Hypoglycemia ) 15 - 30 gm PO UD PRN PRN Reason: Hypoglycemia Treatment Stop: 08/25/22 15:59 Miscellaneous Information (Pharmacy Glycemic Mgmt Consult) 1 each N/A UD PRN PRN Reason: Consult Stop: 08/25/22 15:27 Pantoprazole Sodium (Pantoprazole 40 Mg Tab) 40 mg PO QAM [facility] Stop: 08/26/22 08:59 Last Admin: 08/04/22 08:40 Dose: 40 mg Polyethylene Glycol (Polyethylene (Miralax) 17 Gm Pack) 17 gm PO DAILY PRN PRN Reason: Constipation Stop: 08/29/22 14:30 Rifaximin (Rifaximin 550 Mg Tablet) 550 mg PO BID [facility] Stop: 08/25/22 21:33 Last Admin: 08/04/22 08:39 Dose: 550 mg Spironolactone (Spironolactone 25 Mg Tab) 25 mg PO QAM [facility] Stop: 08/27/22 09:29 Last Admin: 08/04/22 08:40 Dose: 25 mg (1) GERD (gastroesophageal reflux disease) Esophagitis presence: esophagitis presence not specified Qualified Code(s): K21.9 - Gastro-esophageal reflux disease without esophagitis (2) Cirrhosis Ascites presence: without ascites Hepatic cirrhosis type: unspecified hepatic cirrhosis Qualified Code(s): K74.60 - Unspecified cirrhosis of liver
[2022-08-04] MEDS: ceFAZolin 2000MG 2,000 MG/15 ML SYR IV SCH (22:12)
[2022-08-05 05:57] LABS: Basophils # (auto) 0.02 K/uL (0-0.2); Basophils % (auto) 0.7 %; Eosinophils # (auto) 0.28 K/uL (0-0.50); Eosinophils % (auto) 9.4 %; Hematocrit (blood only) 22.6 % (40.1-51.0); Hemoglobin 7.7 g/dl (14.0-18.0); Immature Granulocytes # (auto) 0.01 K/uL (0.00-0.02); Immature Granulocytes % (auto) 0.3 %; Lymphocytes # (auto) 0.83 K/uL (1.2-3.4); Lymphocytes % (auto) 27.9 %; Mean Platelet Volume 10.4 fL (9.4-12.4); Monocytes % (auto) 13.5 %; Neutrophils # (auto) 1.43 K/uL (1.4-6.5); Neutrophils % (auto) 48.2 %; Platelet Count 68 K/uL (130-400); White Blood Count 2.97 K/ul (4.8-10.8)
[2022-08-05] MEDS: ceFAZolin 2000MG 2,000 MG/15 ML SYR IV SCH ×3 (06:10→22:05)
[2022-08-05 06:18] LABS: Anisocytosis Present; Mean Corpuscular Hemoglobin 33.3 pg (25.0-34.0); Mean Corpuscular Hgb Conc 34.1 g/dL (32.0-36.0); Mean Corpuscular Volume 97.8 fL (80.0-100.0); Polychromasia 1+; RDW Standard Deviation 67.7 fL (36.4-46.3); Red Blood Count 2.31 M/uL (4.63-6.08); Tear Drop Cells 1+
[2022-08-05 06:26] LABS: Albumin Level 2.5 gm/dl (3.4-5.0); BUN Creatinine Ratio 25.2 (10-20); Bilirubin,Total 3.7 mg/dl (0.2-1.0); Calcium 7.5 mg/dl (8.5-10.1); Creatinine Clr Calc Pharmacy 46.9 ml/min; Est GFR (African American) 54.5 ml/min; Globulin 2.5 gm/dl (2.5-4.0); Potassium 4.1 mmol/L (3.5-5.1)
[2022-08-05] MEDS: CITALOPRAM 20 MG TAB PO SCH (08:21)
[2022-08-05] MEDS: rifAXIMin 550 MG TABLET PO SCH ×2 (08:21→20:46)
[2022-08-05] MEDS: SPIRONOLACTONE 25 MG TAB PO SCH (08:21)
[2022-08-05] MEDS: allopurinoL 100 MG TAB PO SCH ×2 (08:21→20:46)
[2022-08-05] MEDS: FINASTERIDE 5 MG TAB PO SCH (08:21)
[2022-08-05] MEDS: PANTOprazole 40 MG TAB PO SCH (08:21)
[2022-08-05] MEDS: LACTULOSE SYRUP 20 GM/30 ML UDC PO SCH ×4 (08:22→20:47)
[2022-08-05] MEDS: LANTUS PER UNIT CHARGE SQ SCH (08:22)
[2022-08-05] MEDS: DOCUSATE SODIUM 100 MG CAP PO SCH ×2 (08:22→20:46)
[2022-08-05] MEDS: INSULIN ASPART PER UNIT SC SCH ×4 (08:23→20:47)
--- NOTE | 2022-08-05 09:32 | Gastroenterology Progress Note ---
Date of Service August 05, 2022 Assessment & Plan (1) Hepatic encephalopathy: Plan: Seems to be improving. I don't know him from before but may be at baseline. No further recs now Present on Admission?: Yes Admission and Anticipated Discharge Date Admission Date: July 26, 2022 Subjective Feeling better today. Says he feels more alert. Talkative but still a little slurred Physical Exam Constitutional: WD/WN, vitals as above Skin: + jaundice Psychiatric: Orientation: alert and oriented x 3 Results & Data ([facility]) Vital Signs (Past 12 Hours) Vital Signs Temp Pulse Pulse Resp BP Pulse Ox O2 Del Method 08/05/22 07:07 37.0 C 60 16 106/46 L 97 Room Air 08/05/22 03:26 37.1 C 64 16 135/67 97 Room Air 08/05/22 00:59 69 08/04/22 22:56 37.3 C 67 16 131/57 L 98 Room Air
--- NOTE | 2022-08-05 15:21 | Hospitalist Progress Note ---
Date of Service August 05, 2022 Assessment & Plan (1) Hyperosmolar hyperglycemic state (HHS): (2) T2DM (type 2 diabetes mellitus): (3) Liver disease: (4) Esophageal varices: (5) Prostate cancer: (6) CKD (chronic kidney disease) stage 3, GFR 30-59 ml/min: (7) Anemia of chronic disease: (8) GERD (gastroesophageal reflux disease): (9) Cirrhosis: Plan Patient is a 72 yr male who presented to the [facility] from home with increased thirst and some blurry vision, diagnosed with HHS. On arrival, he was found to have a serum glucose of 744 and Na+ level of 125. The patient has a quite complex PMH that includes: DM2 (diet management), liver cirrhosis (on transplant list at [facility]) s/p TIPS, prostate CA (2019 [place] 3+3 on Eligard s/p XRT), esophageal varices, Anemia of Chronic disease, GERD, and CKD3. The patient does receive infrequent abdominal paracentesis. The patient is AAOx4 and able to converse in no apparent distress. He denies any PHELPS, dizziness, CP, palpitations, N/V/D, muscle movement changes, concentration changes, appetite changes. Patient will be admitted to medicine service for further evaluation and management of his hyperglycemia and other ailments. HHS Uncontrolled DM II Not on any meds prior to admission HbA1C:9.1 Anion Gap Metabolic Acidosis secondary to above Pseudohyponatremia due to hyperglycemia Insulin gtt>>transitioned to SQ Insulin Received IV fluids Appreciate Glycemic Pharmacy help Replace electrolytes as needed Anion Gap closed, Metabolic acidosis resolved as well Tolerating diet Consulted Peeler Operator Continue Insulin per Protocol Likely plan to discharge to Rehab when able Blood sugar seems to be stable Cirrhosis of Liver GAVE Esophageal varices H/O Portal Vein Thrombosis On transplant list at [facility]. 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 Moore for Palliative Medicine; last telemedicine appt 07/24. Takes Lactulose PRN; continue Hyperbilirubinemia worsened from baseline Gall bladder USD: Cirrhosis and moderate ascites. No focal liver mass. Needs follows with GI as outpatient Increase lactulose to titrate to 3-4 good BMs per day Has been having diarrhea and will adjust lactulose dose Generally weak but no hepatic flap on examination Encephalopathy is improved a lot Seems to be at his baseline with minimal dysphasia Gram-positive bacteremia Altered Mental status Likely acute metabolic encephalopathy due to decompensated cirrhosis Decompensation is due to [id number] bacteremia Unclear source of infection. DD: Sinusisits on imaging -CT head:No acute intracranial hemorrhage, no evidence of acute territorial infarction or other acute intracranial disease process. Left maxillary sinusitis. -CXR:Mild cardiomegaly with pulmonary vascular congestion. No overt pulmonary edema. -Repeat COVID Screen negative -Blood Cx pending -gram-positive cocci in cluster final identification is pending -UA not suggestive of UTI --GI following for FOFANA cirrhosis -Has been on Zosyn and that changed to intravenous cefazolin -We will consult ID Expressive aphasia Could be secondary to hepatic and colopathy/decompensated cirrhosis -Neurology consulted-appreciate input and recommendation -Low threshold to obtain ABG -We will have MRI scan to rule out any stroke-MRI was negative for any stroke -Dysphasia is much improved -Improved a lot LUCRETIA on CKD III Resolved with IV fluids Monitor renal function Cr 1.5 today Creatinine is 1.47 as of 08/05/2022 Prostate Cancer Diagnosed 2019 [place] 3+3 on Eligard s/p XRT Anemia of chronic disease Hgb 9.4 today S/P 1 unit PRBCs H/O Rectal Bleeding H/O hemorrhoids, radiation proctitis, diverticulosis Reports intermittent minimal rectal bleed Type and cross, monitor H&H and transfuse PRBC as needed Plan for outpatient EGD in October 2022 Monitor CBC GERD Continue PPI Psoriasis Monitor DVT Px: SCDs Code Status Full Code Disposition Rehab as able Admission and Anticipated Discharge Date Admission Date: July 26, 2022 Subjective 08/03/2022 The patient was seen and examined in medical floor He has significant dysphagia mostly expressive and finding words Denies any fever, any chills, any abdominal pain, nausea no vomiting Has been having diarrhea Remains generally weak 08/04/2022 The patient was seen and examined in medical telemetry unit He has been much better Only symptoms remaining is very minimal dysphagsia 08/05/2022 The patient was seen and examined in medical telemetry unit He has been much better with minimal or no dysphasia Denies any other symptoms Review of Systems Review of Systems: All systems reviewed and are unremarkable except as noted below Physical Exam Physical Exam: Sitting on a chair without any acute distress Constitutional: well developed, well nourished, + ill appearing and average body habitus Eyes: PERRL, conjunctivae normal, anicteric sclerae ENMT: external ear and nose normal, oropharynx normal Neck: trachea midline, no thyromegaly Cardiovascular: Rate/Rhythm: regular rate and regular rhythm; not tachycardic Heart Sounds: normal S1 and normal S2; no murmur Extremities: + edema (Trace edema bilaterally) Gastrointestinal (Abdomen): Inspection/Auscultation: normal bowel sounds; abdomen not distended Percussion/Palpation: + abdomen tender (Minimally tender all over) and abdomen soft Musculoskeletal: No acute arthritis in any joint Neurologic: awake; not confused Minimal dysphasia Lymphatic: no cervical or axillary lymphadenopathy Results & Data Results & Data ([facility]) Vital Signs (Past 12 Hours) Vital Signs Temp Pulse Pulse Resp BP Pulse Ox O2 Del Method 08/05/22 11:53 36.8 C 63 16 120/62 96 Room Air 08/05/22 10:11 67 08/05/22 07:07 37.0 C 60 16 106/46 L 97 Room Air 08/05/22 03:26 37.1 C 64 16 135/67 97 Room Air Laboratory Results Short CBC 08/05/22 Range/Units 05:31 WBC 2.97 L (4.8-10.8) K/ul Hgb 7.7 L (14.0-18.0) g/dl Hct 22.6 L (40.1-51.0) % Plt Count 68 L (130-400) K/uL BMP 08/05/22 05:31 Sodium 136 Potassium 4.1 Chloride 112 H Carbon Dioxide 20 L BUN 37 H Creatinine 1.47 H Glucose 96 Calcium 7.5 L Liver Function 08/05/22 Range/Units 05:31 Total Bilirubin 3.7 H (0.2-1.0) mg/dl AST 59 H (13-39) U/L ALT 23 (7-52) U/L Alkaline Phosphatase 181 H (34-104) U/L Albumin 2.5 L (3.4-5.0) gm/dl Medications Administered Current Inpatient Medications Allopurinol (Allopurinol 100 Mg Tab) 100 mg PO BID [facility] Stop: 08/25/22 21:33 Last Admin: 08/05/22 08:21 Dose: 100 mg Citalopram Hydrobromide (Citalopram 20 Mg Tab) 10 mg PO QAM [facility] Stop: 08/26/22 08:59 Last Admin: 08/05/22 08:21 Dose: 10 mg Dextrose (Dextrose 50% 50 Ml Syringe) 25 - 50 ml IV UD PRN; Protocol PRN Reason: Hypoglycemia Protocol Stop: 08/25/22 15:59 Docusate Sodium (Docusate Sodium 100 Mg Cap) 100 mg PO BID [facility] Stop: 08/29/22 14:44 Last Admin: 08/05/22 08:22 Dose: Not Given Finasteride (Finasteride 5 Mg Tab) 5 mg PO QAM [facility] Stop: 08/26/22 08:59 Last Admin: 08/05/22 08:21 Dose: 5 mg Furosemide (Furosemide 20 Mg Tab) 20 mg PO QAM [facility] Stop: 08/27/22 09:29 Last Admin: 08/02/22 10:14 Dose: 20 mg Glucagon (Glucagon For Inj 1 Mg Vial) 1 mg IM UD PRN; Protocol PRN Reason: Hypoglycemia Protocol Stop: 08/25/22 15:59 Glucose (Glucose 40% Gel 15 Gm Tube) 15 - 30 gm PO UD PRN; Protocol PRN Reason: Hypoglycemia Protocol Stop: 08/25/22 15:59 Glucose (Glucose 10 Tab/Tube) 4 - 8 tab PO UD PRN; Protocol PRN Reason: Hypoglycemia Protocol Stop: 08/25/22 15:59 Cefazolin Sodium (Ancef 2000mg) 2,000 mg in 15 mls @ 3.75 mls/min IV Q8 [facility]; Protocol Stop: 08/18/22 21:59 Last Admin: 08/05/22 13:12 Dose: 3.75 mls/min Insulin Aspart (Insulin Aspart Per Unit) 0 units SC ACHS [facility]; Protocol Stop: 08/26/22 03:59 Last Admin: 08/05/22 13:04 Dose: 33 units Insulin Glargine (Lantus Per Unit Charge) 30 units SQ DAILY [facility]; Protocol Stop: 09/02/22 08:59 Last Admin: 08/05/22 08:22 Dose: 30 units Lactulose (Lactulose Syrup 20 Gm/30 Ml Udc) 20 gm PO QID [facility] Stop: 09/02/22 12:59 Last Admin: 08/05/22 13:04 Dose: 20 gm Mirtazapine (Mirtazapine Tab 15 Mg Tab) 30 mg PO HS [facility] Stop: 08/25/22 21:33 Last Admin: 08/02/22 04:32 Dose: Not Given Miscellaneous (Carbohydrates For Hypoglycemia ) 15 - 30 gm PO UD PRN PRN Reason: Hypoglycemia Treatment Stop: 08/25/22 15:59 Miscellaneous Information (Pharmacy Glycemic Mgmt Consult) 1 each N/A UD PRN PRN Reason: Consult Stop: 08/25/22 15:27 Pantoprazole Sodium (Pantoprazole 40 Mg Tab) 40 mg PO QAM [facility] Stop: 08/26/22 08:59 Last Admin: 08/05/22 08:21 Dose: 40 mg Polyethylene Glycol (Polyethylene (Miralax) 17 Gm Pack) 17 gm PO DAILY PRN PRN Reason: Constipation Stop: 08/29/22 14:30 Rifaximin (Rifaximin 550 Mg Tablet) 550 mg PO BID [facility] Stop: 08/25/22 21:33 Last Admin: 08/05/22 08:21 Dose: 550 mg Spironolactone (Spironolactone 25 Mg Tab) 25 mg PO QAM [facility] Stop: 08/27/22 09:29 Last Admin: 08/05/22 08:21 Dose: 25 mg (1) GERD (gastroesophageal reflux disease) Esophagitis presence: esophagitis presence not specified Qualified Code(s): K21.9 - Gastro-esophageal reflux disease without esophagitis (2) Cirrhosis Ascites presence: without ascites Hepatic cirrhosis type: unspecified hepatic cirrhosis Qualified Code(s): K74.60 - Unspecified cirrhosis of liver
[2022-08-06] MEDS: ceFAZolin 2000MG 2,000 MG/15 ML SYR IV SCH ×3 (05:31→20:53)
[2022-08-06 06:17] LABS: Basophils # (auto) 0.02 K/uL (0-0.2); Basophils % (auto) 0.7 %; Eosinophils % (auto) 9.8 %; Hematocrit (blood only) 21.5 % (40.1-51.0); Hemoglobin 7.3 g/dl (14.0-18.0); Immature Granulocytes # (auto) 0.02 K/uL (0.00-0.02); Immature Granulocytes % (auto) 0.7 %; Lymphocytes # (auto) 0.84 K/uL (1.2-3.4); Lymphocytes % (auto) 27.5 %; Mean Platelet Volume 11.6 fL (9.4-12.4); Monocytes # (auto) 0.24 K/uL (0.24-0.82); Monocytes % (auto) 7.8 %; Neutrophils # (auto) 1.64 K/uL (1.4-6.5); Neutrophils % (auto) 53.5 %; Platelet Count 70 K/uL (130-400); White Blood Count 3.06 K/ul (4.8-10.8)
[2022-08-06 06:31] LABS: BUN Creatinine Ratio 25.5 (10-20); Calcium 7.6 mg/dl (8.5-10.1); Creatinine Clr Calc Pharmacy 50.3 ml/min; Est GFR (African American) 59.3 ml/min; Est GFR (Non-African American) 51.2 ml/min; Potassium 4.2 mmol/L (3.5-5.1)
[2022-08-06 06:45] LABS: Mean Corpuscular Hemoglobin 33.3 pg (25.0-34.0); Mean Corpuscular Volume 98.2 fL (80.0-100.0); RDW Coefficient of Variation 18.6 % (11.5-14.5); Red Blood Count 2.19 M/uL (4.63-6.08); Spherocytes Occasional
[2022-08-06] MEDS: INSULIN ASPART PER UNIT SC SCH ×4 (08:52→20:52)
[2022-08-06] MEDS: LANTUS PER UNIT CHARGE SQ SCH (08:53)
[2022-08-06] MEDS: rifAXIMin 550 MG TABLET PO SCH ×2 (08:54→20:46)
[2022-08-06] MEDS: PANTOprazole 40 MG TAB PO SCH (08:54)
[2022-08-06] MEDS: FINASTERIDE 5 MG TAB PO SCH (08:55)
[2022-08-06] MEDS: SPIRONOLACTONE 25 MG TAB PO SCH (08:55)
[2022-08-06] MEDS: CITALOPRAM 20 MG TAB PO SCH (08:55)
[2022-08-06] MEDS: LACTULOSE SYRUP 20 GM/30 ML UDC PO SCH ×4 (08:56→20:46)
[2022-08-06] MEDS: allopurinoL 100 MG TAB PO SCH ×2 (09:03→20:46)
[2022-08-06] MEDS: DOCUSATE SODIUM 100 MG CAP PO SCH ×2 (09:24→20:46)
--- NOTE | 2022-08-06 13:56 | Hospitalist Progress Note ---
Date of Service August 06, 2022 Assessment & Plan (1) Hyperosmolar hyperglycemic state (HHS): (2) T2DM (type 2 diabetes mellitus): (3) Liver disease: (4) Esophageal varices: (5) Prostate cancer: (6) CKD (chronic kidney disease) stage 3, GFR 30-59 ml/min: (7) Anemia of chronic disease: (8) GERD (gastroesophageal reflux disease): (9) Cirrhosis: Plan Patient is a 72 yr male who presented to the [facility] from home with increased thirst and some blurry vision, diagnosed with HHS. On arrival, he was found to have a serum glucose of 744 and Na+ level of 125. The patient has a quite complex PMH that includes: DM2 (diet management), liver cirrhosis (on transplant list at [facility] [place]) s/p TIPS, prostate CA (2019 [place] 3+3 on Eligard s/p XRT), esophageal varices, Anemia of Chronic disease, GERD, and CKD3. The patient does receive infrequent abdominal paracentesis. The patient is AAOx4 and able to converse in no apparent distress. He denies any PHELPS, dizziness, CP, palpitations, N/V/D, muscle movement changes, concentration changes, appetite changes. Patient will be admitted to medicine service for further evaluation and management of his hyperglycemia and other ailments. HHS Uncontrolled DM II Not on any meds prior to admission HbA1C:9.1 Anion Gap Metabolic Acidosis secondary to above Pseudohyponatremia due to hyperglycemia Insulin gtt>>transitioned to SQ Insulin Received IV fluids Appreciate Glycemic Pharmacy help Replace electrolytes as needed Anion Gap closed, Metabolic acidosis resolved as well Tolerating diet Consulted Client Application Support Engineer Continue Insulin per Protocol Likely plan to discharge to Rehab when able Blood sugar seems to be stable Cirrhosis of Liver GAVE Esophageal varices H/O Portal Vein Thrombosis On transplant list at [facility] [place]. 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 Moore for Palliative Medicine; last telemedicine appt 07/24. Takes Lactulose PRN; continue Hyperbilirubinemia worsened from baseline Gall bladder USD: Cirrhosis and moderate ascites. No focal liver mass. Needs follows with GI as outpatient Increase lactulose to titrate to 3-4 good BMs per day Has been having diarrhea and will adjust lactulose dose Generally weak but no hepatic flap on examination Encephalopathy is improved a lot Will get comprehensive metabolic panel tomorrow and electrolytes Gram-positive bacteremia Altered Mental status Likely acute metabolic encephalopathy due to decompensated cirrhosis Decompensation is due to [id number] bacteremia Unclear source of infection. DD: Sinusisits on imaging -CT head:No acute intracranial hemorrhage, no evidence of acute territorial infarction or other acute intracranial disease process. Left maxillary sinusitis. -CXR:Mild cardiomegaly with pulmonary vascular congestion. No overt pulmonary edema. -Repeat COVID Screen negative -Blood Cx pending -gram-positive cocci in cluster final identification is pending -UA not suggestive of UTI --GI following for FOFANA cirrhosis -Has been on Zosyn and that changed to intravenous cefazolin -We will consult ID-we will discuss with the ID in [place] for duration of antibiotic Expressive aphasia Could be secondary to hepatic and colopathy/decompensated cirrhosis -Neurology consulted-appreciate input and recommendation -Low threshold to obtain ABG -We will have MRI scan to rule out any stroke-MRI was negative for any stroke -Dysphasia is much improved -Improved a lot -Minimal dysphasia LUCRETIA on CKD III Resolved with IV fluids Monitor renal function Cr 1.5 today Creatinine is 1.47 as of 08/05/2022 Creatinine has been normal Prostate Cancer Diagnosed 2019 [place] 3+3 on Eligard s/p XRT Anemia of chronic disease Hgb 9.4 today S/P 1 unit PRBCs H/O Rectal Bleeding H/O hemorrhoids, radiation proctitis, diverticulosis Reports intermittent minimal rectal bleed Type and cross, monitor H&H and transfuse PRBC as needed Plan for outpatient EGD in October 2022 Monitor CBC GERD Continue PPI Psoriasis Monitor DVT Px: SCDs Code Status Full Code Disposition Rehab as able Likely discharge tomorrow Admission and Anticipated Discharge Date Admission Date: July 26, 2022 Subjective 08/03/2022 The patient was seen and examined in medical floor He has significant dysphagia mostly expressive and finding words Denies any fever, any chills, any abdominal pain, nausea no vomiting Has been having diarrhea Remains generally weak 08/04/2022 The patient was seen and examined in medical telemetry unit He has been much better Only symptoms remaining is very minimal dysphagsia 08/05/2022 The patient was seen and examined in medical telemetry unit He has been much better with minimal or no dysphasia Denies any other symptoms 08/06/2022 The patient was seen and examined in medical floor He has been feeling much better No fever and or chills and no significant abdominal discomfort and/or pain Review of Systems Review of Systems: All systems reviewed and are unremarkable except as noted below Physical Exam Physical Exam: Sitting on a chair without any acute distress Constitutional: well developed, well nourished, + ill appearing and average body habitus Eyes: PERRL, conjunctivae normal, anicteric sclerae ENMT: external ear and nose normal, oropharynx normal Neck: trachea midline, no thyromegaly Cardiovascular: Rate/Rhythm: regular rate and regular rhythm; not tachycardic Heart Sounds: normal S1 and normal S2; no murmur Extremities: + edema (Trace edema bilaterally) Gastrointestinal (Abdomen): Inspection/Auscultation: normal bowel sounds; abdomen not distended Percussion/Palpation: + abdomen tender (Minimally tender all over) and abdomen soft Neurologic: awake; not confused Lymphatic: no cervical or axillary lymphadenopathy Results & Data Results & Data ([facility]) Vital Signs (Past 12 Hours) Vital Signs Temp Pulse Pulse Resp BP BP Pulse Ox 08/06/22 11:59 36.8 C 67 18 109/62 100 08/06/22 08:00 67 08/06/22 07:32 36.6 C 65 18 125/66 96 08/06/22 03:51 36.7 C 62 16 106/47 L 98 O2 Del Method 08/06/22 11:59 Room Air 08/06/22 08:00 08/06/22 07:32 Room Air 08/06/22 03:51 Room Air Laboratory Results Short CBC 08/06/22 Range/Units 05:10 WBC 3.06 L (4.8-10.8) K/ul Hgb 7.3 L (14.0-18.0) g/dl Hct 21.5 L (40.1-51.0) % Plt Count 70 L (130-400) K/uL BMP 08/06/22 05:10 Sodium 138 Potassium 4.2 Chloride 112 H Carbon Dioxide 19 L BUN 35 H Creatinine 1.37 Glucose 106 H Calcium 7.6 L Medications Administered Current Inpatient Medications Allopurinol (Allopurinol 100 Mg Tab) 100 mg PO BID JODI Stop: 08/25/22 21:33 Last Admin: 08/06/22 09:03 Dose: 100 mg Citalopram Hydrobromide (Citalopram 20 Mg Tab) 10 mg PO QAM [facility] Stop: 08/26/22 08:59 Last Admin: 08/06/22 08:55 Dose: 10 mg Dextrose (Dextrose 50% 50 Ml Syringe) 25 - 50 ml IV UD PRN; Protocol PRN Reason: Hypoglycemia Protocol Stop: 08/25/22 15:59 Docusate Sodium (Docusate Sodium 100 Mg Cap) 100 mg PO BID [facility] Stop: 08/29/22 14:44 Last Admin: 08/06/22 09:24 Dose: Not Given Finasteride ([facility]aster[facility] 5 Mg Tab) [facility] Stop: 08/26/22 08:59 Last Admin: 08/06/22 08:55 Dose: 5 mg Furosemide (Furosemide 20 Mg Tab) [facility] [place] Stop: 08/27/22 09:29 Last Admin: 08/02/22 10:14 Dose: 20 mg Glucagon (Glucagon For Inj 1 Mg Vial) 1 mg IM UD PRN; Protocol PRN Reason: Hypoglycemia Protocol Stop: 08/25/22 15:59 Glucose (Glucose 40% Gel 15 Gm Tube) 15 - 30 gm PO UD PRN; Protocol PRN Reason: Hypoglycemia Protocol Stop: 08/25/22 15:59 Glucose (Glucose 10 Tab/Tube) 4 - 8 tab PO UD PRN; Protocol PRN Reason: Hypoglycemia Protocol Stop: 08/25/22 15:59 Cefazolin Sodium (Ancef 2000mg) 2,000 mg in 15 mls @ 3.75 mls/min IV Q8 [facility]; Protocol Stop: 08/18/22 21:59 Last Admin: 08/06/22 13:53 Dose: 3.75 mls/min Insulin Aspart (Insulin Aspart Per Unit) 0 units SC ACHS [facility]; Protocol Stop: 08/26/22 03:59 Last Admin: 08/06/22 12:37 Dose: 15 units Insulin Glargine (Lantus Per Unit Charge) 30 units SQ DAILY [facility]; Protocol Stop: 09/02/22 08:59 Last Admin: 08/06/22 08:53 Dose: 30 units Lactulose (Lactulose Syrup 20 Gm/30 Ml Udc) 20 gm PO QID [facility] Stop: 09/02/22 12:59 Last Admin: 08/06/22 08:56 Dose: 20 gm Mirtazapine (Mirtazapine Tab 15 Mg Tab) 30 mg PO HS [facility]ODI Stop: 08/25/22 21:33 Last Admin: 08/02/22 04:32 Dose: Not Given Miscellaneous (Carbohydrates For Hypoglycemia ) 15 - 30 gm PO UD PRN PRN Reason: Hypoglycemia Treatment Stop: 08/25/22 15:59 Miscellaneous Information (Pharmacy Glycemic Mgmt Consult) 1 each N/A UD PRN PRN Reason: Consult Stop: 08/25/22 15:27 Pantoprazole Sodium (Pantoprazole 40 Mg Tab) 40 mg PO QAM [facility] Stop: 08/26/22 08:59 Last Admin: 08/06/22 08:54 Dose: 40 mg Polyethylene Glycol (Polyethylene (Miralax) 17 Gm Pack) 17 gm PO DAILY PRN PRN Reason: Constipation Stop: 08/29/22 14:30 Rifaximin (Rifaximin 550 Mg Tablet) 550 mg PO BID [facility] Stop: 08/25/22 21:33 Last Admin: 08/06/22 08:54 Dose: 550 mg Spironolactone (Spironolactone 25 Mg Tab) 25 mg PO QAM [facility] Stop: 08/27/22 09:29 Last Admin: 08/06/22 08:55 Dose: 25 mg (1) GERD (gastroesophageal reflux disease) Esophagitis presence: esophagitis presence not specified Qualified Code(s): K21.9 - Gastro-esophageal reflux disease without esophagitis (2) Cirrhosis Ascites presence: without ascites Hepatic cirrhosis type: unspecified hepatic cirrhosis Qualified Code(s): K74.60 - Unspecified cirrhosis of liver
[2022-08-07] MEDS: ceFAZolin 2000MG 2,000 MG/15 ML SYR IV SCH ×3 (05:02→21:07)
[2022-08-07 06:13] LABS: Hematocrit (blood only) 20.7 % (40.1-51.0); Hemoglobin 7.1 g/dl (14.0-18.0); Mean Corpuscular Hemoglobin 33.8 pg (25.0-34.0); Mean Corpuscular Hgb Conc 34.3 g/dL (32.0-36.0); Mean Corpuscular Volume 98.6 fL (80.0-100.0); Mean Platelet Volume 10.4 fL (9.4-12.4); Nucleated RBC # (auto) 0.02 K/uL (0-0); Nucleated RBC % (auto) 0.6 %; Platelet Count 66 K/uL (130-400); RDW Coefficient of Variation 18.7 % (11.5-14.5); RDW Standard Deviation 66.4 fL (36.4-46.3); White Blood Count 3.19 K/ul (4.8-10.8)
[2022-08-07 06:23] LABS: Albumin Globulin Ratio 0.9 (0.9-2); Albumin Level 2.4 gm/dl (3.4-5.0); BUN Creatinine Ratio 24.1 (10-20); Bilirubin,Total 2.7 mg/dl (0.2-1.0); Calcium 7.7 mg/dl (8.5-10.1); Creatinine Clr Calc Pharmacy 50.3 ml/min; Est GFR (African American) 59.3 ml/min; Est GFR (Non-African American) 51.2 ml/min; Globulin 2.6 gm/dl (2.5-4.0); Magnesium 1.7 mg/dl (1.7-2.4); Phosphorus 2.5 mg/dl (2.5-4.9); Potassium 4.2 mmol/L (3.5-5.1)
[2022-08-07 06:28] LABS: Basophils # (auto) 0.02 K/uL (0-0.2); Basophils % (auto) 0.6 %; Eosinophils % (auto) 9.4 %; Immature Granulocytes # (auto) 0.03 K/uL (0.00-0.02); Immature Granulocytes % (auto) 0.9 %; Lymphocytes # (auto) 0.81 K/uL (1.2-3.4); Lymphocytes % (auto) 25.4 %; Monocytes # (auto) 0.23 K/uL (0.24-0.82); Monocytes % (auto) 7.2 %; Neutrophils % (auto) 56.5 %; Polychromasia 1+; Tear Drop Cells 1+
[2022-08-07] MEDS: INSULIN ASPART PER UNIT SC SCH ×4 (08:52→20:41)
[2022-08-07] MEDS: CITALOPRAM 20 MG TAB PO SCH (08:54)
[2022-08-07] MEDS: allopurinoL 100 MG TAB PO SCH ×2 (08:54→20:40)
[2022-08-07] MEDS: PANTOprazole 40 MG TAB PO SCH (08:55)
[2022-08-07] MEDS: DOCUSATE SODIUM 100 MG CAP PO SCH ×2 (08:55→20:41)
[2022-08-07] MEDS: FINASTERIDE 5 MG TAB PO SCH (08:55)
[2022-08-07] MEDS: LACTULOSE SYRUP 20 GM/30 ML UDC PO SCH ×4 (08:55→20:41)
[2022-08-07] MEDS: SPIRONOLACTONE 25 MG TAB PO SCH (08:56)
[2022-08-07] MEDS: rifAXIMin 550 MG TABLET PO SCH ×2 (08:56→20:40)
[2022-08-07] MEDS: LANTUS PER UNIT CHARGE SQ SCH (08:58)
--- NOTE | 2022-08-07 13:58 | Pharmacy Report ---
Pharmacy Glycemic Short Note 2 - Date of Service August 07, 2022 - Glycemic Short BSG Results (Last 24 hours): 08/06/22 08/06/22 08/07/22 16:43 20:08 05:46 Glucose 95 POC Glucose 108 H 187 H 08/07/22 08/07/22 08:06 11:42 Glucose POC Glucose 106 H 205 H OUTPATIENT ANTIDIABETIC REGIMEN: * None - diet controlled * HbA1c = 9.1% (07/27/22) ASSESSMENT: 08/07/22 * Patient's BSGs yesterday were [id number] mg/dL. Fasting today is 106 mg/dL. * Patient received 87 units of insulin yesterday (30 units of basal and 57 units of bolus). * Will continue Lantus 30 units daily. * Loosen CF as patient trends down significantly when out of range. Tighten CR back up. PLAN FOR INPATIENT GLYCEMIC CONTROL: * Basal insulin * Lantus 30 units SC daily * Bolus insulin * NovoLog per scale ACHS or Q6hrs while NPO * Goal Range: Low 110 mg/dL - High 140 mg/dL * Correction Factor: 15 mg/dL/unit * Nutritional / Prandial insulin per carb ratio of 1 unit per 3 grams CHO consumed
[2022-08-07] MEDS ORDERED: SODIUM CHLORIDE 0.9% 250 ML IV PRN (16:35)
--- NOTE | 2022-08-07 16:35 | Hospitalist Progress Note ---
Date of Service August 07, 2022 Assessment & Plan (1) Hyperosmolar hyperglycemic state (HHS): (2) T2DM (type 2 diabetes mellitus): (3) Liver disease: (4) Esophageal varices: (5) Prostate cancer: (6) CKD (chronic kidney disease) stage 3, GFR 30-59 ml/min: (7) Anemia of chronic disease: (8) GERD (gastroesophageal reflux disease): (9) Cirrhosis: Plan Patient is a 72 yr male who presented to the [facility] from home with increased thirst and some blurry vision, diagnosed with HHS. On arrival, he was found to have a serum glucose of 744 and Na+ level of 125. The patient has a quite complex PMH that includes: DM2 (diet management), liver cirrhosis (on transplant list at [facility] s/p TIPS, prostate CA (2019 [place] 3+3 on Eligard s/p XRT), esophageal varices, Anemia of Chronic disease, GERD, and CKD3. The patient does receive infrequent abdominal paracentesis. The patient is AAOx4 and able to converse in no apparent distress. He denies any PHELPS, dizziness, CP, palpitations, N/V/D, muscle movement changes, concentration changes, appetite changes. Patient will be admitted to medicine service for further evaluation and management of his hyperglycemia and other ailments. HHS Uncontrolled DM II Not on any meds prior to admission HbA1C:9.1 Anion Gap Metabolic Acidosis secondary to above Pseudohyponatremia due to hyperglycemia Insulin gtt>>transitioned to SQ Insulin Received IV fluids Appreciate Glycemic Pharmacy help Replace electrolytes as needed Anion Gap closed, Metabolic acidosis resolved as well Tolerating diet Consulted Loss Control Manager Continue Insulin per Protocol Likely plan to discharge to Rehab when able Blood sugar seems to be stable Cirrhosis of Liver GAVE Esophageal varices H/O Portal Vein Thrombosis On transplant list at [facility] [place]. 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 Moore for Palliative Medicine; last telemedicine appt 07/24. Takes Lactulose PRN; continue Hyperbilirubinemia worsened from baseline Gall bladder USD: Cirrhosis and moderate ascites. No focal liver mass. Needs follows with GI as outpatient Increase lactulose to titrate to 3-4 good BMs per day Has been having diarrhea and will adjust lactulose dose Generally weak but no hepatic flap on examination Encephalopathy is improved a lot LFTs are improving and the bilirubin is down to 2.7 Gram-positive bacteremia Altered Mental status Likely acute metabolic encephalopathy due to decompensated cirrhosis Decompensation is due to ylozsrynw-[id number] bacteremia Unclear source of infection. DD: Sinusisits on imaging -CT head:No acute intracranial hemorrhage, no evidence of acute territorial infarction or other acute intracranial disease process. Left maxillary sinusitis. -CXR:Mild cardiomegaly with pulmonary vascular congestion. No overt pulmonary edema. -Repeat COVID Screen negative -Blood Cx pending -gram-positive cocci in cluster final identification is pending -UA not suggestive of UTI --GI following for FOFANA cirrhosis -Has been on Zosyn and that changed to intravenous cefazolin -Appreciate ID input and recommendation: Will have TTE to rule out any vegetations and repeat blood cultures If negative the antibiotic should be continued for 2 more weeks Expressive aphasia Could be secondary to hepatic and colopathy/decompensated cirrhosis -Neurology consulted-appreciate input and recommendation -Low threshold to obtain ABG -We will have MRI scan to rule out any stroke-MRI was negative for any stroke -Dysphasia is much improved -Improved a lot -Minimal dysphasia LUCRETIA on CKD III Resolved with IV fluids Monitor renal function Cr 1.5 today Creatinine is 1.47 as of 08/05/2022 Creatinine has been normal Prostate Cancer Diagnosed 2019 [place] 3+3 on Eligard s/p XRT Anemia of chronic disease Hgb 9.4 today S/P 1 unit PRBCs H/O Rectal Bleeding H/O hemorrhoids, radiation proctitis, diverticulosis Reports intermittent minimal rectal bleed Type and cross, monitor H&H and transfuse PRBC as needed Plan for outpatient EGD in October 2022 Hemoglobin is dropped to 7.1 We will transfuse if it falls below 7 GERD Continue PPI Psoriasis Monitor DVT Px: SCDs Code Status Full Code Disposition Rehab as able Likely discharge to [facility] Admission and Anticipated Discharge Date Admission Date: July 26, 2022 Subjective 08/03/2022 The patient was seen and examined in medical floor He has significant dysphagia mostly expressive and finding words Denies any fever, any chills, any abdominal pain, nausea no vomiting Has been having diarrhea Remains generally weak 08/04/2022 The patient was seen and examined in medical telemetry unit He has been much better Only symptoms remaining is very minimal dysphagsia 08/05/2022 The patient was seen and examined in medical telemetry unit He has been much better with minimal or no dysphasia Denies any other symptoms 08/06/2022 The patient was seen and examined in medical floor He has been feeling much better No fever and or chills and no significant abdominal discomfort and/or pain 08/07/2022 The patient was seen and examined in medical telemetry unit He has been stable and has had telemetry health from [place] [facility] [place] today Has been feeling much better and awaiting acceptance to [facility] Denies any significant symptoms Review of Systems Review of Systems: All systems reviewed and are unremarkable except as noted below Physical Exam Physical Exam: Lying in bed without any acute distress Constitutional: well developed, well nourished, + ill appearing and average body habitus Eyes: PERRL, conjunctivae normal, anicteric sclerae ENMT: external ear and nose normal, oropharynx normal Neck: trachea midline, no thyromegaly Cardiovascular: Rate/Rhythm: regular rate and regular rhythm; not tachycardic Heart Sounds: normal S1 and normal S2; no murmur Extremities: + edema (Trace edema bilaterally) Gastrointestinal (Abdomen): Inspection/Auscultation: + abdomen distended (Mildly distended but soft) and normal bowel sounds Percussion/Palpation: + abdomen tender (Minimally tender all over) and abdomen soft Musculoskeletal: No acute arthritis in any joint Neurologic: awake; not confused Lymphatic: no cervical or axillary lymphadenopathy Results & Data Results & Data ([facility]) Vital Signs (Past 12 Hours) Vital Signs Temp Pulse Pulse Resp BP BP Pulse Ox 08/07/22 15:00 64 08/07/22 15:48 36.8 C 67 16 109/49 L 98 08/07/22 11:10 36.7 C 64 20 130/66 99 08/07/22 07:00 64 08/07/22 07:29 36.7 C 59 L 19 128/56 L 99 O2 Del Method 08/07/22 15:00 08/07/22 15:48 Room Air 08/07/22 11:10 Room Air 08/07/22 07:00 08/07/22 07:29 Room Air Laboratory Results Short CBC 08/07/22 Range/Units 05:46 WBC 3.19 L (4.8-10.8) K/ul Hgb 7.1 L (14.0-18.0) g/dl Hct 20.7 L* (40.1-51.0) % Plt Count 66 L (130-400) K/uL BMP 08/07/22 05:46 Sodium 138 Potassium 4.2 Chloride 113 H Carbon Dioxide 20 L BUN 33 H Creatinine 1.37 Glucose 95 Calcium 7.7 L Liver Function 08/07/22 Range/Units 05:46 Total Bilirubin 2.7 H (0.2-1.0) mg/dl AST 53 H (13-39) U/L ALT 13 (7-52) U/L Alkaline Phosphatase 211 H (34-104) U/L Albumin 2.4 L (3.4-5.0) gm/dl Medications Administered Current Inpatient Medications Allopurinol (Allopurinol 100 Mg Tab) 100 mg PO BID [facility] Stop: 08/25/22 21:33 Last Admin: 08/07/22 08:54 Dose: 100 mg Citalopram Hydrobromide (Citalopram 20 Mg Tab) [facility] [place] [place] Stop: 08/26/22 08:59 Last Admin: 08/07/22 08:54 Dose: 10 mg Dextrose (Dextrose 50% 50 Ml Syringe) 25 - 50 ml IV UD PRN; Protocol PRN Reason: Hypoglycemia Protocol Stop: 08/25/22 15:59 Docusate Sodium (Docusate Sodium 100 Mg Cap) 100 mg PO BID [facility] Stop: 08/29/22 14:44 Last Admin: 08/07/22 08:55 Dose: 100 mg Finasteride (Finasteride 5 Mg Tab) [facility] [place] [place] Stop: 08/26/22 08:59 Last Admin: 08/07/22 08:55 Dose: 5 mg Furosemide (Furosemide 20 Mg Tab) [facility] [place] [place] Stop: 08/27/22 09:29 Last Admin: 08/02/22 10:14 Dose: 20 mg Glucagon (Glucagon For Inj 1 Mg Vial) 1 mg IM UD PRN; Protocol PRN Reason: Hypoglycemia Protocol Stop: 08/25/22 15:59 Glucose (Glucose 40% Gel 15 Gm Tube) 15 - 30 gm PO UD PRN; Protocol PRN Reason: Hypoglycemia Protocol Stop: 08/25/22 15:59 Glucose (Glucose 10 Tab/Tube) 4 - 8 tab PO UD PRN; Protocol PRN Reason: Hypoglycemia Protocol Stop: 08/25/22 15:59 Cefazolin Sodium (Ancef 2000mg) 2,000 mg in 15 mls @ 3.75 mls/min IV Q8 [facility]; Protocol Stop: 08/18/22 21:59 Last Admin: 08/07/22 15:13 Dose: 3.75 mls/min Insulin Aspart (Insulin Aspart Per Unit) 0 units SC ACHS [facility]; Protocol Stop: 08/26/22 03:59 Last Admin: 08/07/22 12:31 Dose: 25 units Insulin Glargine (Lantus Per Unit Charge) 30 units SQ DAILY [facility]; Protocol Stop: 09/02/22 08:59 Last Admin: 08/07/22 08:58 Dose: 30 units Lactulose (Lactulose Syrup 20 Gm/30 Ml Udc) 20 gm PO QID [facility] Stop: 09/02/22 12:59 Last Admin: 08/07/22 16:24 Dose: 20 gm Mirtazapine (Mirtazapine Tab 15 Mg Tab) 30 mg PO HS [facility] Stop: 08/25/22 21:33 Last Admin: 08/02/22 04:32 Dose: Not Given Miscellaneous (Carbohydrates For Hypoglycemia ) 15 - 30 gm PO UD PRN PRN Reason: Hypoglycemia Treatment Stop: 08/25/22 15:59 Miscellaneous Information (Pharmacy Glycemic Mgmt Consult) 1 each N/A UD PRN PRN Reason: Consult Stop: 08/25/22 15:27 Pantoprazole Sodium (Pantoprazole 40 Mg Tab) 40 mg PO QAM [facility] Stop: 08/26/22 08:59 Last Admin: 08/07/22 08:55 Dose: 40 mg Polyethylene Glycol (Polyethylene (Miralax) 17 Gm Pack) 17 gm PO DAILY PRN PRN Reason: Constipation Stop: 08/29/22 14:30 Rifaximin (Rifaximin 550 Mg Tablet) 550 mg PO BID [facility] Stop: 08/25/22 21:33 Last Admin: 08/07/22 08:56 Dose: 550 mg Spironolactone (Spironolactone 25 Mg Tab) 25 mg PO QAM [facility] Stop: 08/27/22 09:29 Last Admin: 08/07/22 08:56 Dose: 25 mg (1) GERD (gastroesophageal reflux disease) Esophagitis presence: esophagitis presence not specified Qualified Code(s): K21.9 - Gastro-esophageal reflux disease without esophagitis (2) Cirrhosis Ascites presence: without ascites Hepatic cirrhosis type: unspecified hepatic cirrhosis Qualified Code(s): K74.60 - Unspecified cirrhosis of liver
[2022-08-08] MEDS: ceFAZolin 2000MG 2,000 MG/15 ML SYR IV SCH ×3 (05:18→22:02)
[2022-08-08 06:40] LABS: BUN Creatinine Ratio 20.7 (10-20); Calcium 7.6 mg/dl (8.5-10.1); Creatinine Clr Calc Pharmacy 47.5 ml/min; Est GFR (African American) 55.4 ml/min; Est GFR (Non-African American) 47.8 ml/min; Potassium 4.1 mmol/L (3.5-5.1)
[2022-08-08 06:41] LABS: Hematocrit (blood only) 20.6 % (40.1-51.0); Hemoglobin 6.8 g/dl (14.0-18.0); Mean Corpuscular Hemoglobin 33.8 pg (25.0-34.0); Mean Corpuscular Volume 102.5 fL (80.0-100.0); Mean Platelet Volume 11.4 fL (9.4-12.4); Platelet Count 66 K/uL (130-400); RDW Coefficient of Variation 19.2 % (11.5-14.5); RDW Standard Deviation 70.4 fL (36.4-46.3); Red Blood Count 2.01 M/uL (4.63-6.08); White Blood Count 2.98 K/ul (4.8-10.8)
[2022-08-08] MEDS ORDERED: SODIUM CHLORIDE 0.9% 250 ML IV PRN (06:43)
[2022-08-08 06:47] LABS: Basophils # (auto) 0.02 K/uL (0-0.2); Basophils % (auto) 0.7 %; Eosinophils % (auto) 6.7 %; Immature Granulocytes # (auto) 0.05 K/uL (0.00-0.02); Immature Granulocytes % (auto) 1.7 %; Lymphocytes # (auto) 0.78 K/uL (1.2-3.4); Lymphocytes % (auto) 26.2 %; Monocytes # (auto) 0.23 K/uL (0.24-0.82); Monocytes % (auto) 7.7 %; Polychromasia 1+; Tear Drop Cells 1+
[2022-08-08] MEDS: allopurinoL 100 MG TAB PO SCH ×2 (08:25→20:23)
[2022-08-08] MEDS: CITALOPRAM 20 MG TAB PO SCH (08:26)
[2022-08-08] MEDS: rifAXIMin 550 MG TABLET PO SCH ×2 (08:26→20:23)
[2022-08-08] MEDS: SPIRONOLACTONE 25 MG TAB PO SCH (08:26)
[2022-08-08] MEDS: PANTOprazole 40 MG TAB PO SCH (08:26)
[2022-08-08] MEDS: FINASTERIDE 5 MG TAB PO SCH (08:26)
[2022-08-08] MEDS: DOCUSATE SODIUM 100 MG CAP PO SCH ×2 (08:26→20:23)
[2022-08-08] MEDS: LANTUS PER UNIT CHARGE SQ SCH (08:28)
[2022-08-08] MEDS: LACTULOSE SYRUP 20 GM/30 ML UDC PO SCH (08:28)
[2022-08-08] MEDS: INSULIN ASPART PER UNIT SC SCH ×4 (08:28→20:25)
--- NOTE | 2022-08-08 09:59 | Hospitalist Progress Note ---
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 Avalos's notes with addendum: Patient is a 72 yr male who presented to the [facility] from home with increased thirst and some blurry vision, diagnosed with HHS. On arrival, he was found to have a serum glucose of 744 and Na+ level of 125. The patient has a quite complex PMH that includes: DM2 (diet management), liver [place] [facility] [place] s/p TIPS, prostate CA (2019 [place] 3+3 on Eligard s/p XRT), esophageal varices, Anemia of Chronic disease, GERD, and CKD3. The patient does receive infrequent abdominal paracentesis. The patient is AAOx4 and able to converse in no apparent distress. He denies any PHELPS, dizziness, CP, palpitations, N/V/D, muscle movement changes, concentration changes, appetite changes. Patient will be admitted to medicine service for further evaluation and management of his hyperglycemia and other ailments. HHS Uncontrolled DM II Not on any meds prior to admission HbA1C:9.1 resolved MSSA Bacteremia Altered Mental status Likely acute metabolic encephalopathy due to decompensated cirrhosis Decompensation is due to [id number] bacteremia Unclear source of infection. DD: Sinusitis on imaging -CT head:No acute intracranial hemorrhage, no evidence of acute territorial infarction or other acute intracranial disease process. Left maxillary sinusitis. -CXR:Mild cardiomegaly with pulmonary vascular congestion. No overt pulmonary edema. -Repeat COVID Screen negative -Blood Cx pending -gram-positive cocci in cluster final identification is pending -UA not suggestive of UTI -Appreciate ID input and recommendation: Will have TTE to rule out any vegetations and repeat blood cultures If negative the antibiotic should be continued for 2 more weeks 08/08: - afebrile - TTE: pending - Blood culture 08/07/22: pending continue Cefazolin 2g IV q8h Cirrhosis of Liver GAVE Esophageal varices H/O Portal Vein Thrombosis [place] [facility] [place] 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 Moore for Palliative Medicine; last telemedicine appt 07/24. Takes Lactulose PRN; continue Hyperbilirubinemia worsened from baseline Gall bladder USD:Cirrhosis and moderate ascites. No focal liver mass. Lactulose titrated Encephalopathy is improved a lot LFTs are improving and the bilirubin is down to 2.7 on Lasix and Spironolactone Acute on Chronic Anemia likely secondary to Acute Blood Loss, Hematochezia History of Bleeding Angioectasia, Radiation Proctitis, Diverticulosis, Hemorrhoids Hg 6.8 1 unit pRBC being given GI consulted Expressive aphasia Could be secondary to hepatic and colopathy/decompensated cirrhosis -Neurology consulted-appreciate input and recommendation MRI Brain: no acute CVA -Dysphasia is much improved -Improved a lot -Minimal dysphasia LUCRETIA on CKD III Resolved with IV fluids Monitor renal function Cr 1.5 today Creatinine is 1.47 as of 08/05/2022 Creatinine has been normal Prostate Cancer Diagnosed 2019 [place] 3+3 on Eligard s/p XRT GERD Continue PPI Psoriasis Monitor DVT Px: SCDs Code Status Full Code Disposition Rehab as able Likely discharge to [facility] Admission and Anticipated Discharge Date Admission Date: July 26, 2022 Subjective ff up for MSSA bacteremia, etc seen resting in bed, comfortable pRBC transfusing alert, oriented x 3, comfortable in good spirits states he feels fine overall no chest pain, dyspnea, palpitations, dizziness reports hematochezia 3 days ago, happens once a week denies melena, abdominal pain, nausea/vomiting no fever/chills no other symptoms Review of Systems Review of Systems: all noted and negative except for above Physical Exam Physical Exam: General- oriented x 3, not in distress, speaks in sentences with no effort or accessory muscle use Eyes- anicteric Neck- no JVD Lungs- clear BS bilaterally, no rales/wheezes Heart- normal rate, regular rhythm; no murmurs Abdomen- normal bowel sounds, (+) ascites, moderate distention, soft, nontender Extremities- no pretibial edema, no calf tenderness Neuro- alert, oriented x 3; no gross focal neurologic deficits Skin- warm & dry Results & Data Results & Data ([facility]) Vital Signs (Past 12 Hours) Vital Signs Temp Pulse Pulse Resp BP BP BP 08/08/22 09:49 37.0 C 78 20 127/78 08/08/22 09:16 36.8 C 82 20 118/68 08/08/22 08:46 37.0 C 68 20 122/72 08/08/22 08:31 36.8 C 89 20 136/78 08/08/22 08:11 37.0 C 74 20 146/71 H 08/08/22 07:53 36.8 C 60 17 124/64 08/08/22 03:00 36.7 C 70 16 101/76 08/07/22 23:00 36.8 C 67 16 143/68 H 08/07/22 22:52 66 Pulse Ox O2 Del Method 08/08/22 09:49 99 08/08/22 09:16 99 08/08/22 08:46 100 08/08/22 08:31 100 08/08/22 08:11 99 08/08/22 07:53 99 Room Air 08/08/22 03:00 98 Room Air 08/07/22 23:00 97 Room Air 08/07/22 22:52 all noted and reviewed including below
--- NOTE | 2022-08-08 10:48 | Gastroenterology Progress Note ---
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 Noted to have hemorrhoids, L sided diverticulosis and radiation proctitis s/p APC (hx of prostate ca) on sigmoidscopy 04/2022. Baseline Hgb range in 7s, went up to 9s after 1U PRBC transfusion on 08/01. He has had brown stools since his last episode of rectal bleeding which seems to be self limited and suspect may be related to hemorrhoids vs diverticular bleed, radiation proctitis. - Monitor for further s/s of GI bleeding - Monitor blood ct and transfuse prn - Defer repeat endoscopy eval at this time - Hydrocortisone suppository prn rectal bleeding - Pls recall GI prn Admission and Anticipated Discharge Date Admission Date: July 26, 2022 Supervising Physician Co-Signing Physician Notes Attending attestation I have seen, examined this patient, and agree with the findings and above by our mid-level provider JEFF Cast, with the following additions: - No signs of acute HD significant GI bleeding - Symptoms c/w radiation proctitis - Agree with supportive care and will monitor - HE is improved - Hold lactulose and start Xifaxin in the interim Subjective GI asked to re-evaluate pt by primary hospitalist (Dr. Franko Villanueva). Pt's blood ct this AM was 6.8/20.6. Baseline Hgb usually 7s, increased to 9 after PRBC transfusions on 08/01 Pt reported loose stools w BRBRP 2-3 days ago. Denies associated rectal pain, itching, abd pain, n/v. Since then he has had brown stools. Review of Systems Review of Systems: All systems reviewed & are unremarkable except as noted in HPI & below Physical Exam Constitutional: WD/WN, vitals as above well groomed, cooperative and comfortable Eyes: PERRL, conjunctivae normal, anicteric sclerae ENMT: external ear and nose normal, oropharynx normal Respiratory: normal respiratory effort, lungs clear to auscultation Cardiovascular: RRR, no murmur, no edema Gastrointestinal (Abdomen): normal bowel sounds, soft, nontender, no hepatosplenomegaly Skin: no rashes, warm and dry no jaundice Neurologic: Motor/Sensory: no asterixis Psychiatric: A+Ox3, euthymic affect Lymphatic: no lymphedema Results & Data ([facility]) Vital Signs (Past 12 Hours) Vital Signs Temp Pulse Pulse Resp BP BP BP 08/08/22 10:16 37.4 C 78 20 112/68 08/08/22 08:00 78 08/08/22 09:49 37.0 C 78 20 127/78 08/08/22 09:16 36.8 C 82 20 118/68 08/08/22 08:46 37.0 C 68 20 122/72 08/08/22 08:31 36.8 C 89 20 136/78 08/08/22 08:11 37.0 C 74 20 146/71 H 08/08/22 07:53 36.8 C 60 17 124/64 08/08/22 03:00 36.7 C 70 16 101/76 08/07/22 23:00 36.8 C 67 16 143/68 H 08/07/22 22:52 66 Pulse Ox O2 Del Method 08/08/22 10:16 96 08/08/22 08:00 08/08/22 09:49 99 08/08/22 09:16 99 08/08/22 08:46 100 08/08/22 08:31 100 08/08/22 08:11 99 08/08/22 07:53 99 Room Air 08/08/22 03:00 98 Room Air 08/07/22 23:00 97 Room Air 08/07/22 22:52 (1) Anemia Anemia type: unspecified type Qualified Code(s): D64.9 - Anemia, unspecified
[2022-08-08] MEDS ORDERED: HYDROCORTISONE ACETATE 25 MG SUPP PR PRN (10:55)
--- NOTE | 2022-08-08 11:14 | Pharmacy Report ---
Pharmacy Glycemic Short Note 2 - Date of Service August 08, 2022 - Glycemic Short BSG Results (Last 24 hours): 08/07/22 08/07/22 08/07/22 11:42 16:23 20:29 Glucose POC Glucose 205 H 86 104 H 08/08/22 08/08/22 05:59 07:42 Glucose 180 H POC Glucose 151 H OUTPATIENT ANTIDIABETIC REGIMEN: * None - diet controlled * HbA1c = 9.1% (07/27/22) ASSESSMENT: 08/08: * Patient received total 80 units of insulin yesterday: 30 units basal and 50 units bolus. * Fasting BSG today was 151 mg/dl. Basal dose continued the same today. * BSGs yesterday were 378-203-55-104 mg/dl. Since BSGs go lower pre-dinner, loosened CR with lunch. 08/07/22 * Patient's BSGs yesterday were 785-489-466-187 mg/dL. Fasting today is 106 mg/dL. * Patient received 87 units of insulin yesterday (30 units of basal and 57 units of bolus). * Will continue Lantus 30 units daily. * Loosen CF as patient trends down significantly when out of range. Tighten CR back up. PLAN FOR INPATIENT GLYCEMIC CONTROL: * Basal insulin * Lantus 30 units SC daily * Bolus insulin * NovoLog per scale ACHS or Q6hrs while NPO * Goal Range: Low 110 mg/dL - High 140 mg/dL * Correction Factor: 15 mg/dL/unit * Nutritional / Prandial insulin per carb ratio of 1 unit per 3 grams CHO consumed for breakfast, dinner, bedtime; and 1 unit per 4 gms CHO consumed for lunch
[2022-08-09] MEDS: ceFAZolin 2000MG 2,000 MG/15 ML SYR IV SCH ×3 (05:55→19:53)
--- NOTE | 2022-08-09 08:44 | Gastroenterology Progress Note ---
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 Noted to have hemorrhoids, L sided diverticulosis and radiation proctitis s/p APC (hx of prostate ca) on sigmoidscopy 04/2022. Baseline Hgb range in 7s, went up to 9s after 1U PRBC transfusion on 08/01. He has had brown stools since his last episode of rectal bleeding which seems to be self limited and suspect may be related to hemorrhoids vs diverticular bleed, radiation proctitis. Last bloody BM yesterday afternoon, but last evening's stool normal wo blood. AM labs pending. - Monitor for further s/s of GI bleeding - Monitor blood ct and transfuse prn - Defer repeat endoscopy eval at this time - Hydrocortisone suppository prn rectal bleeding - Hold Lactulose, continue Xifaxan 550mg BID - Pls recall GI prn Admission and Anticipated Discharge Date Admission Date: July 26, 2022 Supervising Physician Co-Signing Physician Notes Attending attestation I have seen, examined this patient, and agree with the findings and above by our mid-level provider JEFF Cast, with the following additions: - No signs of acute HD significant GI bleeding, now with brown stools - Symptoms c/w radiation proctitis - Agree with supportive care and will monitor - HE is improved - Hold lactulose and start Xifaxin in the interim Subjective Pt's last BM w noted rectal bleeding was yesterday afternoon. However had another BM in the evening wo blood and stool was brown, formed. He denies abd pain, n/v Review of Systems Review of Systems: All systems reviewed & are unremarkable except as noted in HPI & below Physical Exam Constitutional: WD/WN, vitals as above well groomed, cooperative and comfortable Eyes: PERRL, conjunctivae normal, anicteric sclerae ENMT: external ear and nose normal, oropharynx normal Respiratory: normal respiratory effort, lungs clear to auscultation Cardiovascular: RRR, no murmur, no edema Gastrointestinal (Abdomen): normal bowel sounds, soft, nontender, no hepatosplenomegaly Skin: no rashes, warm and dry no jaundice Neurologic: Motor/Sensory: no asterixis Psychiatric: A+Ox3, euthymic affect Lymphatic: no lymphedema Results & Data ([facility]) Vital Signs (Past 12 Hours) Vital Signs Temp Pulse Pulse Resp BP Pulse Ox O2 Del Method 08/09/22 07:43 36.5 C 58 L 126/66 97 Room Air 08/09/22 03:28 36.4 C L 60 20 111/61 97 Room Air 08/09/22 02:43 63 08/08/22 23:16 36.6 C 65 20 116/61 97 Room Air (1) Anemia Anemia type: unspecified type Qualified Code(s): D64.9 - Anemia, unspecified
[2022-08-09] MEDS: SPIRONOLACTONE 25 MG TAB PO SCH (08:47)
[2022-08-09] MEDS: FINASTERIDE 5 MG TAB PO SCH (08:47)
[2022-08-09] MEDS: CITALOPRAM 20 MG TAB PO SCH (08:47)
[2022-08-09] MEDS: PANTOprazole 40 MG TAB PO SCH (08:47)
[2022-08-09] MEDS: FUROSEMIDE 20 MG TAB PO SCH (08:47)
[2022-08-09] MEDS: rifAXIMin 550 MG TABLET PO SCH ×2 (08:47→19:48)
[2022-08-09] MEDS: DOCUSATE SODIUM 100 MG CAP PO SCH ×3 (08:47→19:47)
[2022-08-09] MEDS: allopurinoL 100 MG TAB PO SCH ×2 (08:47→19:47)
[2022-08-09] MEDS: LANTUS PER UNIT CHARGE SQ SCH (08:48)
[2022-08-09] MEDS: INSULIN ASPART PER UNIT SC SCH ×4 (08:48→20:14)
[2022-08-09 09:27] LABS: Basophils # (auto) 0.02 K/uL (0-0.2); Basophils % (auto) 0.7 %; Eosinophils # (auto) 0.22 K/uL (0-0.50); Eosinophils % (auto) 7.9 %; Hematocrit (blood only) 25.4 % (40.1-51.0); Hemoglobin 8.5 g/dl (14.0-18.0); Immature Granulocytes # (auto) 0.07 K/uL (0.00-0.02); Immature Granulocytes % (auto) 2.5 %; Lymphocytes # (auto) 0.77 K/uL (1.2-3.4); Lymphocytes % (auto) 27.6 %; Mean Platelet Volume 11.8 fL (9.4-12.4); Monocytes # (auto) 0.22 K/uL (0.24-0.82); Monocytes % (auto) 7.9 %; Neutrophils # (auto) 1.49 K/uL (1.4-6.5); Neutrophils % (auto) 53.4 %; Platelet Count 71 K/uL (130-400); White Blood Count 2.79 K/ul (4.8-10.8)
[2022-08-09 09:49] LABS: Mean Corpuscular Hemoglobin 33.6 pg (25.0-34.0); Mean Corpuscular Hgb Conc 33.5 g/dL (32.0-36.0); Mean Corpuscular Volume 100.4 fL (80.0-100.0); RDW Coefficient of Variation 19.9 % (11.5-14.5); RDW Standard Deviation 70.1 fL (36.4-46.3); Red Blood Count 2.53 M/uL (4.63-6.08)
[2022-08-09 09:52] LABS: BUN Creatinine Ratio 23.4 (10-20); Creatinine Clr Calc Pharmacy 55.6 ml/min; Est GFR (African American) 66.9 ml/min; Est GFR (Non-African American) 57.7 ml/min; Potassium 4.3 mmol/L (3.5-5.1)
--- NOTE | 2022-08-09 13:28 | Hospitalist Progress Note ---
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 Avalos's notes with addendum: Patient is a 72 yr male who presented to the [facility] from home with increased thirst and some blurry vision, diagnosed with HHS. On arrival, he was found to have a serum glucose of 744 and Na+ level of 125. The patient has a quite complex PMH that includes: DM2 (diet management), liver cirrhosis (on [place] [facility] [place] s/p TIPS, prostate CA (2019 [place] 3+3 on Eligard s/p XRT), esophageal varices, Anemia of Chronic disease, GERD, and CKD3. The patient does receive infrequent abdominal paracentesis. The patient is AAOx4 and able to converse in no apparent distress. He denies any PHELPS, dizziness, CP, palpitations, N/V/D, muscle movement changes, concentration changes, appetite changes. Patient will be admitted to medicine service for further evaluation and management of his hyperglycemia and other ailments. HHS Uncontrolled DM II Not on any meds prior to admission HbA1C:9.1 resolved MSSA Bacteremia Altered Mental status Likely acute metabolic encephalopathy due to decompensated cirrhosis Decompensation is due to [id number] bacteremia Unclear source of infection. DD: Sinusitis on imaging -CT head:No acute intracranial hemorrhage, no evidence of acute territorial infarction or other acute intracranial disease process. Left maxillary sinusitis. -CXR:Mild cardiomegaly with pulmonary vascular congestion. No overt pulmonary edema. -Repeat COVID Screen negative -Blood Cx pending -gram-positive cocci in cluster final identification is pending -UA not suggestive of UTI -Appreciate ID input and recommendation: Will have TTE to rule out any vegetations and repeat blood cultures If negative the antibiotic should be continued for 2 more weeks 08/09 - afebrile - TTE: no vegetation seen - Blood culture 08/07/22: negative so far continue Cefazolin 2g IV q8h (14 days from 08/07/22) if BC negative until tomorrow, will order US guided access for IV Cefazolin Cirrhosis of Liver GAVE Esophageal varices H/O Portal Vein Thrombosis On transplant list at [facility] [place]. 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 oMore for Palliative Medicine; last telemedicine appt 07/24. Takes Lactulose PRN; continue Hyperbilirubinemia worsened from baseline Gall bladder USD:Cirrhosis and moderate ascites. No focal liver mass. Lactulose titrated Encephalopathy is improved a lot LFTs are improving and the bilirubin is down to 2.7 on Lasix and Spironolactone Acute on Chronic Anemia likely secondary to Acute Blood Loss, Hematochezia History of Bleeding Angioectasia, Radiation Proctitis, Diverticulosis, Hemorrhoids Hg 6.8 1 unit pRBC being given GI consulted- likely diverticular or hemorrhoidal bleed, no further intervention at this point Hg improved to 8.5 Expressive aphasia Could be secondary to hepatic and colopathy/decompensated cirrhosis -Neurology consulted-appreciate input and recommendation MRI Brain: no acute CVA -Dysphasia is much improved -Improved a lot -Minimal dysphasia LUCRETIA on CKD III Resolved with IV fluids Monitor renal function Cr 1.5 today Creatinine is 1.47 as of 08/05/2022 Creatinine has been normal Prostate Cancer Diagnosed 2019 [place] 3+3 on Eligard s/p XRT GERD Continue PPI Psoriasis Monitor DVT Px: SCDs Code Status Full Code Disposition d/c to [facility] once blood culture remains negative Admission and Anticipated Discharge Date Admission Date: July 26, 2022 Subjective ff up for MSSA bacteremia, Anemia, etc seen resting in bed, comfortable in good spirits states he feels fine overall strength seems to be improving per patient no abdominal pain, nausea/vomiting, rectal bleeding/hematochezia no chest pain, dyspnea, palpitations, dizziness no other symptoms Review of Systems Review of Systems: all noted and negative except for above Physical Exam Physical Exam: General- oriented x 3, not in distress, speaks in sentences with no effort or accessory muscle use Eyes- anicteric Neck- no JVD Lungs- clear BS bilaterally, no rales/wheezes Heart- normal rate, regular rhythm; no murmurs Abdomen- normal bowel sounds, nondistended, soft, nontender Extremities- no pretibial edema, no calf tenderness Neuro- alert, oriented x 3; no gross focal neurologic deficits Skin- warm & dry Results & Data Results & Data ([facility]) Vital Signs (Past 12 Hours) Vital Signs Temp Pulse Pulse Resp BP Pulse Ox O2 Del Method 08/09/22 11:34 37.2 C 20 120/54 L 99 Room Air 08/09/22 08:00 59 L 08/09/22 07:43 36.5 C 58 L 126/66 97 Room Air 08/09/22 03:28 36.4 C L 60 20 111/61 97 Room Air 08/09/22 02:43 63 all noted and reviewed including below
[2022-08-10] MEDS: ceFAZolin 2000MG 2,000 MG/15 ML SYR IV SCH ×2 (04:36→13:40)
[2022-08-10 06:19] LABS: Hematocrit (blood only) 23.4 % (40.1-51.0); Hemoglobin 7.8 g/dl (14.0-18.0); Mean Platelet Volume 11.1 fL (9.4-12.4); Platelet Count 68 K/uL (130-400); White Blood Count 2.49 K/ul (4.8-10.8)
[2022-08-10 06:51] LABS: BUN Creatinine Ratio 21.7 (10-20); Calcium 7.7 mg/dl (8.5-10.1); Est GFR (African American) 58.8 ml/min; Est GFR (Non-African American) 50.7 ml/min; Potassium 4.2 mmol/L (3.5-5.1)
[2022-08-10 06:57] LABS: Basophils # (auto) 0.02 K/uL (0-0.2); Basophils % (auto) 0.8 %; Eosinophils # (auto) 0.19 K/uL (0-0.50); Eosinophils % (auto) 7.6 %; Immature Granulocytes # (auto) 0.06 K/uL (0.00-0.02); Immature Granulocytes % (auto) 2.4 %; Lymphocytes # (auto) 0.82 K/uL (1.2-3.4); Lymphocytes % (auto) 32.9 %; Mean Corpuscular Hemoglobin 33.6 pg (25.0-34.0); Mean Corpuscular Hgb Conc 33.3 g/dL (32.0-36.0); Mean Corpuscular Volume 100.9 fL (80.0-100.0); Monocytes # (auto) 0.19 K/uL (0.24-0.82); Monocytes % (auto) 7.6 %; Neutrophils # (auto) 1.21 K/uL (1.4-6.5); Neutrophils % (auto) 48.7 %; RBC Morphology Unremarkable; RDW Coefficient of Variation 19.6 % (11.5-14.5); RDW Standard Deviation 70.2 fL (36.4-46.3); Red Blood Count 2.32 M/uL (4.63-6.08)
[2022-08-10] MEDS: CITALOPRAM 20 MG TAB PO SCH (08:11)
[2022-08-10] MEDS: FUROSEMIDE 20 MG TAB PO SCH (08:12)
[2022-08-10] MEDS: PANTOprazole 40 MG TAB PO SCH (08:12)
[2022-08-10] MEDS: allopurinoL 100 MG TAB PO SCH (08:12)
[2022-08-10] MEDS: FINASTERIDE 5 MG TAB PO SCH (08:13)
[2022-08-10] MEDS: rifAXIMin 550 MG TABLET PO SCH (08:13)
[2022-08-10] MEDS: SPIRONOLACTONE 25 MG TAB PO SCH (08:14)
[2022-08-10] MEDS: INSULIN ASPART PER UNIT SC SCH ×2 (08:56→12:29)
[2022-08-10] MEDS: LANTUS PER UNIT CHARGE SQ SCH (08:57)
[2022-08-10] MEDS ORDERED: LACTULOSE SYRUP 30 GM/45 ML UDP PO SCH (09:00)
--- NOTE | 2022-08-10 09:48 | Pharmacy Report ---
Pharmacy Glycemic Short Note 2 - Date of Service August 10, 2022 - Glycemic Short BSG Results (Last 24 hours): 08/09/22 08/09/22 08/09/22 08:58 11:15 16:25 Glucose 181 H POC Glucose 220 H 80 08/09/22 08/10/22 08/10/22 20:12 05:43 07:35 Glucose 154 H POC Glucose 131 H 112 H OUTPATIENT ANTIDIABETIC REGIMEN: * None - diet controlled * HbA1c = 9.1% (07/27/22) ASSESSMENT: 08/10: * Patient received total 90 units of insulin yesterday: 30 units basal + 60 units bolus * BSGs yesterday were 812-137-43-131 mg/dl. * Fasting BSG today was 112 mg/dl. No change in basal insulin made today. * Except for the pre-lunch BSG, post prandial BSGs have all been within goal. * May need Novolog parameters at breakfast tightened up however no changes made today. 08/08: * Patient received total 80 units of insulin yesterday: 30 units basal and 50 units bolus. * Fasting BSG today was 151 mg/dl. Basal dose continued the same today. * BSGs yesterday were 046-881-62-104 mg/dl. Since BSGs go lower pre-dinner, loosened CR with lunch. 08/07/22 * Patient's BSGs yesterday were 455-154-087-187 mg/dL. Fasting today is 106 mg/dL. * Patient received 87 units of insulin yesterday (30 units of basal and 57 units of bolus). * Will continue Lantus 30 units daily. * Loosen CF as patient trends down significantly when out of range. Tighten CR back up. PLAN FOR INPATIENT GLYCEMIC CONTROL: * Basal insulin * Lantus 30 units SC daily * Bolus insulin * NovoLog per scale ACHS or Q6hrs while NPO * Goal Range: Low 110 mg/dL - High 140 mg/dL * Correction Factor: 15 mg/dL/unit * Nutritional / Prandial insulin per carb ratio of 1 unit per 3 grams CHO consumed for breakfast, dinner, bedtime; and 1 unit per 4 gms CHO consumed for lunch
[2022-08-10 11:23] VITALS: BP 127/62; PULSE 61; TEMP 97.9; O2SAT 97
--- NOTE | 2022-08-10 14:17 | Hospitalist Progress Note ---
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 Avalos's notes with addendum: Patient is a 72 yr male who presented to the [facility] from home with increased thirst and some blurry vision, diagnosed with HHS. On arrival, he was found to have a serum glucose of 744 and Na+ level of 125. The patient has a quite complex PMH that includes: DM2 (diet management), liver cirrhosis ([place] [facility] [place] s/p TIPS, prostate CA (2020 [place] 3+3 on Eligard s/p XRT), esophageal varices, Anemia of Chronic disease, GERD, and CKD3. The patient does receive infrequent abdominal paracentesis. The patient is AAOx4 and able to converse in no apparent distress. He denies any PHELPS, dizziness, CP, palpitations, N/V/D, muscle movement changes, concentration changes, appetite changes. Patient will be admitted to medicine service for further evaluation and management of his hyperglycemia and other ailments. HHS Uncontrolled DM II Not on any meds prior to admission HbA1C:9.1 resolved Pharmacy Glycemic Consult recommendation: * Basal insulin * Lantus 30 units SC daily * Bolus insulin * NovoLog per scale ACHS or Q6hrs while NPO * Goal Range: Low 110 mg/dL - High 140 mg/dL * Correction Factor: 15 mg/dL/unit * Nutritional / Prandial insulin per carb ratio of 1 unit per 3 grams CHO consumed for breakfast, dinner, bedtime; and 1 unit per 4 gms CHO consumed for lunch MSSA Bacteremia with Altered Mental status Likely acute metabolic encephalopathy due to decompensated cirrhosis -CT head:No acute intracranial hemorrhage, no evidence of acute territorial infarction or other acute intracranial disease process. Left maxillary sinusitis. -CXR:Mild cardiomegaly with pulmonary vascular congestion. No overt pulmonary edema. -Repeat COVID Screen negative -Blood Cx pending -gram-positive cocci in cluster final identification is pending -UA not suggestive of UTI -Appreciate ID input and recommendation: TTE to rule out any vegetations and repeat blood cultures If negative the antibiotic should be continued for 2 more weeks 08/10 - afebrile - TTE: no vegetation seen - Blood culture 08/07/22: negative x 3 days continue Cefazolin 2g IV q8h x 11 more days (14 days total from 08/07/22) US guided access for IV Cefazolin placed repeat CBC, CMP weekly while on IV antibiotic probiotic daily Cirrhosis of Liver GAVE Esophageal varices H/O Portal Vein Thrombosis [place] [facility] [place] 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 Moore for Palliative Medicine; last telemedicine appt 07/24. Takes Lactulose PRN; continue Hyperbilirubinemia worsened from baseline Gall bladder USD:Cirrhosis and moderate ascites. No focal liver mass. Lactulose titrated Encephalopathy is improved a lot LFTs are improving and the bilirubin is down to 2.7 on Lasix and Spironolactone Acute on Chronic Anemia likely secondary to Acute Blood Loss, Hematochezia History of Bleeding Angioectasia, Radiation Proctitis, Diverticulosis, Hemorrhoids Hg 6.8 1 unit pRBC being given GI consulted- likely diverticular or hemorrhoidal bleed, no further intervention at this point Hg improved to 7.8 monitor closely repeat CBC in 1 week Expressive aphasia Could be secondary to hepatic and colopathy/decompensated cirrhosis -Neurology consulted-appreciate input and recommendation MRI Brain: no acute CVA - resolved LUCRETIA on CKD III Resolved with IV fluids Monitor renal function Prostate Cancer Diagnosed 2019 [place] 3+3 on Eligard s/p XRT GERD Continue PPI Psoriasis monitor DVT Px: SCDs Code Status Full Code Disposition d/c to [facility] ff up with PCP and GI after discharge from [facility] Admission and Anticipated Discharge Date Admission Date: July 26, 2022 Subjective ff up for HHS, etc seen resting in bed, comfortable in good spirits states he feels fine overall no abdominal pain, nausea/vomiting no rectal bleeding, melena no chest pain, dyspnea, palpitations, dizziness no other symptoms states he is ready for discharge Review of Systems Review of Systems: all noted and negative except for above Physical Exam Physical Exam: General- oriented x 3, not in distress, speaks in sentences with no effort or accessory muscle use Eyes- anicteric Neck- no JVD Lungs- clear breath sounds BL Heart- normal rate, regular rhythm; no murmurs Abdomen- normal bowel sounds, nondistended, soft, nontender Extremities- no pretibial edema, no calf tenderness Neuro- alert, oriented x 3; no gross focal neurologic deficits Skin- warm & dry Results & Data Results & Data ([facility]) Vital Signs (Past 12 Hours) Vital Signs Temp Pulse Pulse Resp BP BP Pulse Ox 08/10/22 11:22 36.6 C 61 19 127/62 97 08/10/22 08:00 63 08/10/22 08:00 08/10/22 07:36 36.7 C 60 22 114/50 L 95 08/10/22 02:51 36.9 C 56 L 20 116/55 L 92 O2 Del Method 08/10/22 11:22 Room Air 08/10/22 08:00 08/10/22 08:00 Room Air 08/10/22 07:36 Room Air 08/10/22 02:51 Room Air all noted and reviewed including below
--- NOTE | 2022-08-10 14:33 | Discharge Summary ---
Date of Service August 10, 2022 Admission HPI Per Admitting Provider Mr. Luis Hale is a 72 year old male who presented to the [facility] from home with increased thirst and some blurry vision, diagnosed with HHS. On arrival, he was found to have a serum glucose of 744 and Na+ level of 125. The patient has a quite complex PMH that includes: DM2 (diet management), [place] [facility] [place]/p TIPS, prostate CA (2019 [place] 3+3 on Eligard s/p XRT), esophageal varices, Anemia of Chronic disease, GERD, and CKD3. The patient does receive infrequent abdominal paracentesis. The patient is AAOx4 and able to converse in no apparent distress. He denies any PHELPS, dizziness, CP, palpitations, N/V/D, muscle movement changes, concentration changes, appetite changes. Patient will be admitted to medicine service for further evaluation and management of his hyperglycemia and other ailments. Care coordinated with Dr. Paul. Admission Exam Per Admitting Provider Neuro: AAOx4, PERRLA, no aphagia, memory changes, CNII-XII grossly intact HEENT: head normocephalic, moist mucus membranes CV: S1/S2, (-) M/G/R, (-) edema, cap refill < 3 seconds Resp: Lungs CTA in all brand. On RA GI: Abdomen S/NT/ND, Ax4 bowel sounds, (-) CVA tenderness Musculoskeletal: 5/5 B/L UE strength, 5/5 B/L LE strength. No gait disturbance Skin: (-) erythema. (+) generalized red spots from liver cirrhosis on his legs and arms (-) Jaundice Psych: euthymic mood Principal Diagnosis Proximal hyperglycemic syndrome MSSA bacteremia Acute on chronic anemia Discharge Exam General- oriented x 3, not in distress, speaks in sentences with no effort or accessory muscle use Eyes- anicteric Neck- no JVD Lungs- clear breath sounds BL Heart- normal rate, regular rhythm; no murmurs Abdomen- normal bowel sounds, nondistended, soft, nontender Extremities- no pretibial edema, no calf tenderness Neuro- alert, oriented x 3; no gross focal neurologic deficits Skin- warm & dry Discharge Data Allergies Allergy/AdvReac Type Severity Reaction Status Date / Time No Known Allergies Allergy Mild Verified 04/12/22 08:58 Consultations 08/25/22 15:36 ED Decision to Admit Stat 08/01/22 07:48 Consult Gastroenterology Routine 08/02/22 13:07 Consult Neurology Routine 08/03/22 17:05 Consult Infectious Diseases Routine Ordered Studies 07/27/22 17:53 US abdomen ltd ascites Routine 07/30/22 12:17 US gallbladder Routine 08/02/22 10:53 CT head/brain wo con Urgent 08/02/22 14:00 US abdomen ltd ascites Routine 08/03/22 08:00 US paracentesis abd w/image Routine 08/03/22 09:21 CT Abd and Pelvis [CT abd pelvis wo con] Routine COMPARISON STUDY: Abdominal CT dated 12/02/2021. TECHNIQUE: CT scan of the abdomen and pelvis is performed from the lung bases to the proximal femora. Images are reviewed in the axial, sagittal, and coronal planes. IV contrast was not administered as per the referring clinician. Note that the examination was performed in significantly suboptimal fashion without oral and IV contrast. There is also motion artifact, and streak artifact from the arms which could not be elevated above the abdomen. A dose lowering technique was utilized adhering to the principles of ALARA. CT DOSE: 685.04 mGy.cm FINDINGS: Lung bases: The heart is mildly enlarged and without pericardial effusion. The coronary arteries are densely calcified. There is diminished attenuation of the cardiac blood pool as compared to the myocardium suggesting anemia. The lung bases are clear noting bibasilar scarring/atelectasis. Gynecomastia is noted. Liver: The unenhanced liver is cirrhotic in morphology and heterogeneous in attenuation. There is hypertrophy of the left lobe and caudate, as well as nodularity of the hepatic surface contour. There is no intrahepatic biliary ductal dilatation. A TIPS catheter is in place. Gallbladder: Unremarkable. Spleen: The spleen is enlarged measuring 16.8 cm in length. Pancreas: The unenhanced pancreas is mildly atrophic. A 1.9 cm simple cystic lesion of the pancreatic head seen on image #176 is unchanged. This likely represents an IPMN versus mucinous cystic neoplasm. Adrenal glands: Unremarkable. Kidneys: The unenhanced kidneys are atrophic and without hydronephrosis. There are no renal calculi identified. There is no evidence of contour deforming renal mass lesion. Abdominal vasculature: The abdominal aorta is normal in course and caliber noting moderate atherosclerotic calcification. Bowel: There is moderate colonic fecal retention. No bowel obstruction is seen. There is mild colonic diverticulosis without CT evidence of acute diverticulitis. The appendix is normal as visualized. Peritoneum: There is a small volume of abdominopelvic ascites. No intraperitoneal free air is seen. Lymphadenopathy: None. Pelvic viscera: The prostate gland is mildly enlarged and heterogeneous. The bladder is distended, and the wall appears thickened/trabeculated indicating chronic outlet obstruction. There are small bilateral fat-containing inguinal hernias. Skeletal structures: The skeletal structures are osteopenic. There is a mild chronic superior endplate compression fracture of L1. There is moderate lumbosacral spondylosis. No lytic or blastic lesions are seen. IMPRESSION: 1. Significantly suboptimal examination without oral and IV contrast. There is also streak and motion artifact. 2. The liver is cirrhotic in morphology and heterogeneous in attenuation. A TIPS catheter is in place. 3. Splenomegaly and a small volume of abdominopelvic ascites indicate portal hypertension. 4. Moderate constipation. 5. Additional findings as above. ACT 112: Negative or not required by law. 08/03/22 11:29 MRI Brain [MR brain wo con] Urgent Comparison: Comparison is made to CT head 08/02/2022 FINDINGS: No abnormal restricted diffusion is identified. The white matter is unremarkable. The ventricular system is normal in appearance. No mass is seen. There is no mass effect or midline shift. There is no evidence of acute intraparenchymal hemorrhage. No extra axial fluid collections are seen. The corpus callosum, pituitary gland, and cerebellar tonsils appear grossly unremarkable. Flow voids of the major intracranial arterial vessels are identified. Maxillary sinusitis is again noted. IMPRESSION: 1. No acute abnormality and in particular no evidence of acute infarct. 2. Left maxillary sinusitis is noted. ACT 112: Negative or not required by law. 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 Avalos's notes with addendum: Patient is a 72 yr male who presented to the [facility] from home with increased thirst and some blurry vision, diagnosed with HHS. On arrival, he was found to have a serum glucose of 744 and Na+ level of 125. The patient has a quite complex PMH that includes: DM2 (diet management), liver [place] [facility] [place] s/p TIPS, prostate CA (2020 [place] 3+3 on Eligard s/p XRT), esophageal varices, Anemia of Chronic disease, GERD, and CKD3. The patient does receive infrequent abdominal paracentesis. The patient is AAOx4 and able to converse in no apparent distress. He denies any PHELPS, dizziness, CP, palpitations, N/V/D, muscle movement changes, concentration changes, appetite changes. Patient will be admitted to medicine service for further evaluation and management of his hyperglycemia and other ailments. HHS Uncontrolled DM II Not on any meds prior to admission HbA1C:9.1 resolved Pharmacy Glycemic Consult recommendation: * Basal insulin * Lantus 30 units SC daily * Bolus insulin * NovoLog per scale ACHS or Q6hrs while NPO * Goal Range: Low 110 mg/dL - High 140 mg/dL * Correction Factor: 15 mg/dL/unit * Nutritional / Prandial insulin per carb ratio of 1 unit per 3 grams CHO consumed for breakfast, dinner, bedtime; and 1 unit per 4 gms CHO consumed for lunch MSSA Bacteremia with Altered Mental status Likely acute metabolic encephalopathy due to decompensated cirrhosis -CT head:No acute intracranial hemorrhage, no evidence of acute territorial infarction or other acute intracranial disease process. Left maxillary sinusitis. -CXR:Mild cardiomegaly with pulmonary vascular congestion. No overt pulmonary edema. -Repeat COVID Screen negative -Blood Cx pending -gram-positive cocci in cluster final identification is pending -UA not suggestive of UTI -Appreciate ID input and recommendation: TTE to rule out any vegetations and repeat blood cultures If negative the antibiotic should be continued for 2 more weeks 08/10 - afebrile - TTE: no vegetation seen - Blood culture 08/07/22: negative x 3 days continue Cefazolin 2g IV q8h x 11 more days (14 days total from 08/07/22) US guided access for IV Cefazolin placed repeat CBC, CMP weekly while on IV antibiotic probiotic daily Cirrhosis of Liver GAVE Esophageal varices H/O Portal Vein Thrombosis [place] [facility] 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 Moore for Palliative Medicine; last telemedicine appt 07/24. Takes Lactulose PRN; continue Hyperbilirubinemia worsened from baseline Gall bladder USD:Cirrhosis and moderate ascites. No focal liver mass. Lactulose titrated Encephalopathy is improved a lot LFTs are improving and the bilirubin is down to 2.7 on Lasix and Spironolactone Acute on Chronic Anemia likely secondary to Acute Blood Loss, Hematochezia History of Bleeding Angioectasia, Radiation Proctitis, Diverticulosis, Hemorrhoids Hg 6.8 1 unit pRBC being given GI consulted- likely diverticular or hemorrhoidal bleed, no further intervention at this point Hg improved to 7.8 FeSO4 started monitor closely repeat CBC in 1 week Expressive aphasia Could be secondary to hepatic and colopathy/decompensated cirrhosis -Neurology consulted-appreciate input and recommendation MRI Brain: no acute CVA - resolved LUCRETIA on CKD III Resolved with IV fluids Monitor renal function Prostate Cancer Diagnosed 2020 [place] 3+3 on Eligard s/p XRT GERD Continue PPI Psoriasis monitor DVT Px: SCDs Code Status Full Code Disposition d/c to [facility] ff up with PCP and GI after discharge from [facility] Total Time Total Time Spent Total Time Spent (In Minutes): >30 minutes Discharge Plan Discharge Items Patient Disposition: Transfer Inpatient Rehab Fac Reason For Visit: HYPERGLYCEMIA Discharge Diagnosis: Hyperosmolar hyperglycemic syndrome MSSA bacteremia Acute on chronic anemia Activity: Resume your previous activity Activity Comment: Continue PT and OT, fall precautions Lifting: Wait until after follow-up appointment Exercise/Sports: Wait until after follow-up appointment Driving/Machine Use: No driving until reevaluated and allowed by primary care physician Non-emergency contact: Primary Care Provider Call non-emergency contact if: you have any medication questions, your symptoms worsen, your pain is not controlled, your pain is worsening, your pain is unusual for you, your pain is concerning for you and you have a fever Follow-up/Referrals: Lamar Tatum CRNP [Family Provider] - Francisco Cisse MD [Primary Care Provider] - Diet: Carb Consistent or DM2 and Heart Healthy Addtl Attending Provider Instructions: Patient needs 11 more days of IV cefazolin. Repeat blood work including complete blood count, comprehensive metabolic pro file weekly while on IV antibiotics. Please provide probiotics x1 month. PLAN FOR INPATIENT GLYCEMIC CONTROL: * Basal insulin * * Lantus 30 units SC daily * Bolus insulin * * NovoLog per scale ACHS or Q6hrs while NPO * Goal Range: Low 110 mg/dL - High 140 mg/dL * Correction Factor: 15 mg/dL/unit * Nutritional / Prandial insulin per carb ratio of 1 unit per 3 grams CHO consumed for breakfast, dinner, bedtime; and 1 unit per 4 gms CHO consumed for lunch Please refer to accompanying hospital discharge summary for further details. Pending Studies at Discharge: Yes Studies:: Repeat blood work including complete blood count, comprehensive metabolic profile weekly while on IV antibiotics. Stand-Alone Forms: [facility] Skilled Items Patient informed of condition?: Yes DNR: No Discharge Level of Care: Acute rehab Communicable Disease: No Discharge Prognosis: Stable Lines: Peripheral IV Urinary Catheter: No Medications and DC Order Prescriptions: New insulin aspart U-100 [Novolog U-100 Insulin aspart] 100 unit/mL Solution 1 unit SC UD 30 Days Qty: 0.3 0RF Rx Instructions: per Sliding Scale on Discharge Instructions insulin glargine [Lantus U-100 Insulin] 100 unit/mL Solution 30 unit subcut DAILY 30 Days Qty: 9 2RF cefazolin 2 gram recon soln 2 g IV Q8H 11 Days Qty: 33 0RF ferrous sulfate 325 mg (65 mg iron) tablet 325 mg PO BID Qty: 60 0RF Continued citalopram [Celexa] 10 mg tablet 10 mg PO QAM omeprazole 40 mg capsule,delayed release(DR/EC) 40 mg PO QAM lactulose 10 gram/15 mL solution See Rx Instructions .ROUTE .COMPLEX PRN (Reason: Constipation) Rx Instructions: 1 tablespoon daily per pt PRN; allopurinol 100 mg Tablet 100 mg PO BID Xifaxan 550 mg tablet 550 mg PO BID Label Comments: Part of the "FOFANA" regimen to remove impurities mirtazapine 30 mg tablet 30 mg PO HS spironolactone 25 mg tablet 25 mg PO QAM furosemide 20 mg tablet 20 mg PO QAM finasteride 5 mg Tablet 5 mg PO QAM Discharge Orders: Discharge Order (Routine); Ordered 08/10/22 Ordered By: Franko Velazquez/Other Patient Handouts: High Blood Sugar (Hyperglycemia), Hypoglycemia (Low Blood Sugar), Managing Type 2 Diabetes Admission Data Admit Date/Time: 07/26/22 15:55 Attending Provider: Franko Villanueva Admit Provider: Tavo Paul Primary Care Provider: Francisco Cisse Other Providers: Tavo Paul ; [facility] ; David Duncan ; Velasquez Metz ; Victor Hugo Rehman ; Jeanie Camilo ; Eren Fitzpatrick I. ; Dex Awad II ; Negra Garcia ; Kevin Nelson ; Shane Zamora ; Carlos Avalos
== END 2022-08-10 15:18 | DRG 637 ==
LOC: ED 14:10 → 4W 15:55 → SUATTDRO 15:55 → 4W 21:17

== ENCOUNTER 2022-08-19 12:28 | Inpatient (IN) ==
[2022-08-19 12:56] LABS: Hemoglobin 6.8 g/dl (14.0-18.0)
[2022-08-19] MEDS ORDERED: STAT IV STA (13:01)
[2022-08-19] MEDS ORDERED: SODIUM CHLORIDE 0.9% 250 ML IV PRN (13:01)
[2022-08-19] MEDS ORDERED: PANTOPRAZOLE BOLUS/DRIP 1 EACH IV STA (13:01)
[2022-08-19] MEDS ORDERED: PANTOprazole 80 MG in DEXTROSE 5% 100 ML IV ONE (13:01)
[2022-08-19] MEDS ORDERED: OCTREOTIDE ACETATE 100 MCG in SYRINGE 9 ML IV STA (13:01)
[2022-08-19 13:02] LABS: INR 1.1 (0.9-1.1); Partial Thromboplastin Ratio 0.9; Partial Thromboplastin Time 24.5 Seconds (21.0-31.0); Prothrombin Time 11.3 Seconds (9.0-12.0)
--- NOTE | 2022-08-19 13:03 | Emergency Department Note ---
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 The patient denies any shortness of breath chest pain or dizziness. The patient was seen recently due to concern for anemia and associated hyperglycemia. Patient was discharged on 08 10. Patient does have a known history of liver cirrhosis. Patient has had a prior TIPS. Patient does take lactulose as needed and does follow with Dr. Turner Roque for his liver issues. Patient is on Lasix and Aldactone. Patient does have a history of bleeding angioectasias and radiation proctitis and diverticulosis and hemorrhoids. GI was consulted at the time of his most recent admission and thought to be likely diverticular or hemorrhoidal bleed. Patient currently denies any chest pains or shortness of breath. The patient does not use NSAIDs alcohol or blood thinners. Patient did have a recent admission due to concern for HHS. No exacerbating or remitting factors. Patient denies any falls or trauma and has no head or neck pain ROS: See HPI for pertinent positives and negatives. A total of 10 systems were reviewed and otherwise negative. Past medical history: See below Surgical history: See below Social history: See below Physical Exam: GENERAL: NAD, wearing a mask, non-toxic. Wearing glasses. EYE EXAM: Normal conjunctiva. PERRL, no anisocoria and EOM's grossly intact w/o pain. NECK: Supple, no nuchal rigidity, no adenopathy, non-tender. No signs of meningismus. FROM of the neck with good chin to chest and neck extension. No stridor. LUNGS: Clear to auscultation. Normal chest wall mechanics. HEART: NSR, no MRG. ABDOMEN: Abdomen soft, non-tender, normo-active bowel sounds, no masses, no rebound or guarding. BACK: No CVA TTP. SKIN: No rashes and no bruising. UPPER EXTREMITIES: Upper extremities are grossly normal. LOWER EXTREMITIES: Grossly normal, no edema. NEURO EXAM: A&O x3, cranial nerves II-XII grossly intact, normal speech, moves all 4 extremities. Differential diagnoses: Diverticulosis, AVM, coagulopathy, colitis, inflammatory bowel disease, malignancy, Jodee-Rm tear, esophagitis, peptic ulcer disease, variceal bleed, gastritis, epistaxis, fissure, hemorrhoids, as well as other pathologies. Course: Patient was seen and evaluated the bedside. Full history physical exam was performed. EKG interpreted by me Normal sinus rhythm, rate of 66, normal MA and QRS, prolonged QT, normal axis. Imaging Studies: See Below Cardiac monitoring: An order was placed for continuous cardiac monitoring. The monitor shows a rate of 67 with sinus rhythm. MDM: Patient did present due to concern for anemia. The patient did have blood work completed which showed a hemoglobin of 6.8. The patient's white count was low with associated leukopenia which appears relatively chronic and stable. Thro mbocytopenia noted also chronic and stable. Coags are normal. Kidney function with creatinine 1.47. The patient's bilirubin is 2. This does appear improved compared to prior. The patient does not have any abdominal pain to palpation. Patient was consented for 2 units PRBCs and started on a PPI bolus and drip. Remote history of esophageal varices and the patient was given octreotide bolus. I did speak the on-call hospitalist Nia Sands PA-C and the patient was admitted by Dr. Azevedo Critical Care: I have personally spent 37 minutes of critical care time in direct management of this patient. This includes bedside care, interpretation of diagnostic studies, and testing, discussion with consultants, patient, and family members, and other require inpatient management activities. This 37 minutes is in excess of all separately billable procedures. 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 CKD (chronic kidney disease) stage 3, GFR 30-59 ml/min DVT prophylaxis Esophageal varices Esophageal varices GAVE (gastric antral vascular ectasia) GERD (gastroesophageal reflux disease) Gout NO ISSUES CURRENTLY History of panic attacks Hyperosmolar hyperglycemic state (HHS) Hypertension Prostate cancer (11/10/20) Psoriasis Rectal bleeding Shortness of breath Upper GI bleed Surgical History History of abdominal paracentesis multiple---pt states last was 6 months ago History of colonoscopy with polypectomy History of esophagogastroduodenoscopy (EGD) last 10/25 revealed grade 2 esophageal varices, grade 1 gastric varices STABLE History of prostate biopsy malignant History of tonsillectomy and adenoidectomy S/P TIPS (transjugular intrahepatic portosystemic shunt) Family History Father , "3/4 liver gone due to drinking" Colorectal cancer, Onset Age: 63 Mother Lung cancer Daughter Cancer cervical and thyroid cancers Ovarian cancer Other No family history of adverse response to anesthesia 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 Smoking Status: Never smoker Second Hand Exposure: No; Hx Alcohol Use: No Hx Substance Use: No Preferred Language: Divehi Communication Ability: Effective Visual Impairment: No Limitations Hearing Ability: Normal Equal Opportunity Director Required: No Beliefs That Will Affect Care: None marital status: Current Living Situation: Spouse 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 How many Children do You have: 6 How many Children do You have Comment: one , eldest daughter in her sleep from seizure disorder Feels Safe at Home: Yes Childhood Exposure to Second-Hand Smoke: Yes Diet Comment: "I watch my sugar, average fasting is 140 mg/dl" caffeine: Yes (cola, sugar free, decaf) during the past year weight has: remained stable Dental Care, Regularly: No Physical Activity Frequency: Does not Exercise Seatbelt Use: always Sunscreen Use: Yes Assistive Devices: Walker Allergies Allergies Allergy/AdvReac Type Severity Reaction Status Date / Time No Known Allergies Allergy Mild Verified 04/12/22 08:58 Home Meds Home Medications Medication Instructions Recorded Confirmed citalopram 10 mg tablet (Celexa) 10 mg PO QAM 03/24/20 08/19/22 omeprazole 40 mg capsule,delayed 40 mg PO QAM 03/24/20 08/19/22 release allopurinol 100 mg tablet 100 mg PO BID 05/16/20 08/19/22 rifaximin 550 mg tablet (Xifaxan) 550 mg PO BID 12/08/20 08/19/22 finasteride 5 mg tablet 5 mg PO QAM 11/03/21 08/19/22 lactulose 10 gram/15 mL oral See Rx Instructions .Route 03/13/22 08/19/22 solution .COMPLEX PRN Constipation furosemide 20 mg tablet 20 mg PO QAM 07/26/22 08/19/22 mirtazapine 30 mg tablet 30 mg PO HS 07/26/22 08/19/22 spironolactone 25 mg tablet 25 mg PO QAM 07/26/22 08/19/22 Previous Rx's Medication Instructions Recorded cefazolin 2 gram solution for 2 g IV Q8H 11 days #33 ea 08/10/22 injection ferrous sulfate 325 mg (65 mg 325 mg PO BID #60 tabs 08/10/22 iron) tablet insulin aspart U-100 100 unit/mL 1 unit (0.01 mL) SC UD 30 days 08/10/22 subcutaneous solution (Novolog #0.3 mL U-100 Insulin aspart) insulin glargine 100 unit/mL 30 unit (0.3 mL) subcut DAILY 30 08/10/22 subcutaneous solution (Lantus days #9 mL U-100 Insulin) Results & Data (ED) Vital Signs Vital Signs - 24 hr 08/19/22 12:54 08/19/22 12:57 08/19/22 13:08 Temperature 36.5 C Temperature Source Oral Pulse Rate 67 Pulse Rate [Radial] 66 Pulse Rhythm Regular Pulse Rhythm [Radial] Regular Pulse Strength Normal Pulse Strength [Radial] Normal Respiratory Rate 20 16 Respiratory Effort / Characteristics Non-Labored Spontaneous Non-Labored Spontaneous Respiratory Depth Normal Normal Respiratory Pattern Regular Regular Blood Pressure 134/70 Blood Pressure [Left Arm] 134/63 Blood Pressure Mean 91 Blood Pressure Mean [Left Arm] 86 Blood Pressure Position Sitting Blood Pressure Position [Left Arm] Lying Pulse Oximetry 94 98 Oxygen Delivery Method Room Air Room Air Room Air Sepsis Recent Fever Within 48 Hours No Sepsis New/Unexplained Change in Mental Status N/A Sepsis Action Taken by Nursing No Action Required 08/19/22 14:29 08/19/22 14:45 08/19/22 15:00 Temperature 36.6 C 36.5 C 36.7 C Temperature Source Oral Oral Oral Pulse Rate 62 62 66 Pulse Rate [Radial] Pulse Rhythm Pulse Rhythm [Radial] Pulse Strength Pulse Strength [Radial] Respiratory Rate 20 18 20 Respiratory Effort / Characteristics Respiratory Depth Respiratory Pattern Blood Pressure 139/65 142/68 H 157/68 H Blood Pressure [Left Arm] Blood Pressure Mean 89 92 97 Blood Pressure Mean [Left Arm] Blood Pressure Position Blood Pressure Position [Left Arm] Pulse Oximetry 96 100 99 Oxygen Delivery Method Sepsis Recent Fever Within 48 Hours Sepsis New/Unexplained Change in Mental Status Sepsis Action Taken by Nursing 08/19/22 15:14 Temperature Temperature Source Pulse Rate Pulse Rate [Radial] 62 Pulse Rhythm Pulse Rhythm [Radial] Regular Pulse Strength Pulse Strength [Radial] Normal Respiratory Rate 18 Respiratory Effort / Characteristics Non-Labored Spontaneous Respiratory Depth Normal Respiratory Pattern Regular Blood Pressure Blood Pressure [Left Arm] 157/68 H Blood Pressure Mean Blood Pressure Mean [Left Arm] 97 Blood Pressure Position Blood Pressure Position [Left Arm] Lying Pulse Oximetry 100 Oxygen Delivery Method Room Air Sepsis Recent Fever Within 48 Hours Sepsis New/Unexplained Change in Mental Status Sepsis Action Taken by [facility] Medications Current Medication List: was personally reviewed by me Laboratory Data Attestation: I reviewed the patient's lab results. Result diagrams: 08/20/22 05:38 08/20/22 05:38 Lab Results 08/19/22 08/19/22 08/19/22 Range/Units 12:38 12:38 12:38 WBC 2.88 L (4.8-10.8) K/ul RBC 2.01 L (4.63-6.08) M/uL Hgb 6.8 L* (14.0-18.0) g/dl Hct 21.0 L (40.1-51.0) % MCV 104.5 H (80.0-100.0) fL MCH 33.8 (25.0-34.0) pg MCHC 32.4 (32.0-36.0) g/dL RDW Std Deviation 72.6 H (36.4-46.3) fL RDW Coeff of Violetta 19.5 H (11.5-14.5) % Plt Count 88 L (130-400) K/uL MPV 10.6 (9.4-12.4) fL PT 11.3 (9.0-12.0) Seconds INR 1.1 (0.9-1.1) APTT 24.5 (21.0-31.0) Seconds PTT Ratio 0.9 Sodium (136-145) mmol/L Potassium (3.5-5.1) mmol/L Chloride (98-107) mmol/L Carbon Dioxide (21-32) mmol/L Anion Gap (3-11) BUN (6-23) mg/dl Creatinine (0.6-1.4) mg/dl Est Cr Clr Drug Dosing ml/min Est GFR ( Amer) ml/min Est GFR (Non-Af Amer) ml/min BUN/Creatinine Ratio (10-20) Glucose (70-99(Fasting)) mg/dl Calcium (8.5-10.1) mg/dl Total Bilirubin (0.2-1.0) mg/dl AST (13-39) U/L ALT (7-52) U/L Alkaline Phosphatase (34-104) U/L Ammonia (18-72) umol/L Total Protein (6.0-8.3) gm/dl Albumin (3.4-5.0) gm/dl Globulin (2.5-4.0) gm/dl Albumin/Globulin Ratio (0.9-2) SARS-CoV-2, RNA, NAAT (NEGATIVE) Blood Type O Positive Antibody Screen NEGATIVE Crossmatch See Detail 08/19/22 08/19/22 08/19/22 Range/Units 12:38 12:38 14:20 WBC (4.8-10.8) K/ul RBC (4.63-6.08) M/uL Hgb (14.0-18.0) g/dl Hct (40.1-51.0) % MCV (80.0-100.0) fL MCH (25.0-34.0) pg MCHC (32.0-36.0) g/dL RDW Std Deviation (36.4-46.3) fL RDW Coeff of Violetta (11.5-14.5) % Plt Count (130-400) K/uL MPV (9.4-12.4) fL PT (9.0-12.0) Seconds INR (0.9-1.1) APTT (21.0-31.0) Seconds PTT Ratio Sodium 143 (136-145) mmol/L Potassium 4.0 (3.5-5.1) mmol/L Chloride 113 H (98-107) mmol/L Carbon Dioxide 24 (21-32) mmol/L Anion Gap 6 (3-11) BUN 37 H (6-23) mg/dl Creatinine 1.47 H (0.6-1.4) mg/dl Est Cr Clr Drug Dosing 46.9 ml/min Est GFR ( Amer) 54.5 ml/min Est GFR (Non-Af Amer) 47.0 ml/min BUN/Creatinine Ratio 25.2 H (10-20) Glucose 177 H (70-99(Fasting)) mg/dl Calcium 8.4 L (8.5-10.1) mg/dl Total Bilirubin 2.0 H (0.2-1.0) mg/dl AST 47 H (13-39) U/L ALT 8 (7-52) U/L Alkaline Phosphatase 187 H (34-104) U/L Ammonia 125.0 H (18-72) umol/L Total Protein 5.8 L (6.0-8.3) gm/dl Albumin 2.9 L (3.4-5.0) gm/dl Globulin 2.9 (2.5-4.0) gm/dl Albumin/Globulin Ratio 1.0 (0.9-2) SARS-CoV-2, RNA, NAAT NEGATIVE (NEGATIVE) Blood Type Antibody Screen Crossmatch Administered Medications Allopurinol (Allopurinol 100 Mg Tab) 100 mg PO BID JODI Stop: 09/18/22 20:59 Last Admin: 08/19/22 21:11 Dose: Not Given Documented By: CF Ferrous Sulfate (Ferrous Sulfate 325 Mg Tab) 325 mg PO BID JODI Stop: 09/18/22 20:59 Last Admin: 08/19/22 21:11 Dose: Not Given Documented By: CF Pantoprazole Sodium 40 mg/ (Dextrose) 100 mls @ 20 mls/hr IV Q5H JODI Stop: 09/18/22 13:29 Last Admin: 08/20/22 05:30 Dose: 8 mg/hr, 20 mls/hr Documented By: Infusion: 08/20/22 05:30 Dose: 8 mg/hr, 20 mls/hr Documented By: Admin: 08/20/22 00:56 Dose: 8 mg/hr, 20 mls/hr Documented By: Infusion: 08/20/22 00:56 Dose: 8 mg/hr, 20 mls/hr Documented By: Admin: 08/19/22 21:09 Dose: 8 mg/hr, 20 mls/hr Documented By: Infusion: 08/19/22 18:58 Dose: 8 mg/hr, 20 mls/hr Documented By: Admin: 08/19/22 13:58 Dose: 8 mg/hr, 20 mls/hr Documented By: PRETTY Cefazolin Sodium (Ancef 2000mg) 2,000 mg in 15 mls @ 3.75 mls/min IV Q8H JODI Stop: 08/21/22 20:59 Last Admin: 08/20/22 05:30 Dose: 3.75 mls/min Documented By: Admin: 08/19/22 21:11 Dose: 3.75 mls/min Documented By: MAGUI Insulin Aspart (Insulin Aspart Per Unit) 0 units SC ACHS JODI Stop: 09/18/22 20:09 Last Admin: 08/19/22 21:11 Dose: Not Given Documented By: Admin: 08/19/22 21:08 Dose: Not Given Documented By: MAGUI Mirtazapine (Mirtazapine Tab 15 Mg Tab) 30 mg PO HS JODI Stop: 09/18/22 20:59 Last Admin: 08/19/22 21:12 Dose: Not Given Documented By: MAGUI Rifaximin (Rifaximin 550 Mg Tablet) 550 mg PO BID JODI Stop: 09/18/22 20:59 Last Admin: 08/19/22 21:12 Dose: Not Given Documented By: MAGUI Discontinued Medications Pantoprazole Sodium (Protonix Bolus/Drip) 0 mls @ 1 mls/hr IV ONE STA Stop: 08/19/22 13:02 Last Admin: 08/19/22 15:03 Dose: Not Given Documented By: EDWARD Pantoprazole Sodium 80 mg/ (Dextrose) 120 mls @ 400 mls/hr IV NOW ONE Stop: 08/19/22 13:18 Last Infusion: 08/19/22 13:59 Dose: 0 mls/hr Documented By: Admin: 08/19/22 13:35 Dose: 400 mls/hr Documented By: PRETTY Octreotide Acetate 100 mcg/ (Syringe) 10 mls @ 3 mls/min IV NOW STA Stop: 08/19/22 13:04 Last Admin: 08/19/22 13:58 Dose: 3 mls/min Documented By: PRETTY Miscellaneous (Stat Iv) 1 each N/A NOW STA Stop: 08/19/22 13:02 Last Admin: 08/19/22 13:08 Dose: 1 each Documented By: PRETTY Discharge Plan Visit Data Chief Complaint: GI Bleed Stated Complaint: ABNORMAL LABS, RECTAL BLEED ED Provider: Adrian Fitch Discharge Problem: Acute lower GI bleeding, Anemia, Pancytopenia, 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
[2022-08-19 13:19] LABS: Albumin Level 2.9 gm/dl (3.4-5.0); BUN Creatinine Ratio 25.2 (10-20); Calcium 8.4 mg/dl (8.5-10.1); Creatinine Clr Calc Pharmacy 46.9 ml/min; Est GFR (African American) 54.5 ml/min; Globulin 2.9 gm/dl (2.5-4.0); Total Protein 5.8 gm/dl (6.0-8.3)
[2022-08-19 13:28] LABS: Mean Corpuscular Hemoglobin 33.8 pg (25.0-34.0); Mean Corpuscular Hgb Conc 32.4 g/dL (32.0-36.0); Mean Corpuscular Volume 104.5 fL (80.0-100.0); Mean Platelet Volume 10.6 fL (9.4-12.4); Platelet Count 88 K/uL (130-400); RDW Coefficient of Variation 19.5 % (11.5-14.5); RDW Standard Deviation 72.6 fL (36.4-46.3); Red Blood Count 2.01 M/uL (4.63-6.08); White Blood Count 2.88 K/ul (4.8-10.8)
[2022-08-19] MEDS: PANTOprazole 40 MG in DEXTROSE 5% 100 ML IV SCH ×2 (13:58→21:09)
--- NOTE | 2022-08-19 15:19 | History & Physical Report ---
Date of Service August 19, 2022 Assessment & Plan (1) Anemia of chronic disease: (2) Acute lower GI bleeding: Plan: - Admit to PCU - Trending H&H every 6, hemoglobin here is 6.8, receiving PRBC x2 - Consult GI, Dr. Duncan on-call, Follows with Dr. Price - Protonix 40 mg IV BID started, given octreotide in the ER, will hold on further octreotide for now since BRBPR and seems to be lower. 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 -On transplant list at [facility], status post TIPS procedure -Holding lactulose as above today, resume per day team -No metabolic encephalopathy on admission -LFTs with T bili equals 2.0, AST 47, alk phos 187, albumin is 2.9 -Continue Lasix and spironolactone with blood transfusions to avoid flash pulmon ugo edema/volume overload (6) T2DM (type 2 diabetes mellitus): Plan: -Lantus reduced to 15 units daily down from 30 with current n.p.o. status -ISS with Accu-Cheks ACHS -Last A1c is 9.1 on 07/27 (7) CKD (chronic kidney disease) stage 3, GFR 30-59 ml/min: Plan: -History of such, follow BUN/creatinine, 37/1.47 on admission (8) Prostate cancer: Plan: Diagnosed in 2019, [place] 3+3 on [place] s/p XRT DVT PPx: - kleber, magos CODE: Full code Dispo: From [facility], likely to remain in the hospital x 1-2 days, CM to assist with discharge planning History of Present Illness Chief Complaint: Rectal bleeding Primary Care Provider: Francisco Cisse MD This is a 72 yo M with PMhx of FOFANA cirrhosis s/p TIPS x 2, on liver transplant list, esophageal varices, anemia of chronic disease, DM II, GI bleeding, prostate carcinoma, GERD, CKD stage III. He reports rectal/GI bleeding since Dec 2021. He has had no bleeding at all within the past 2 days, and then this morning had significantly worse bleeding with dripping blood in toilet today and concern for significant bleeding with about 1 tablespoon of blood with clots, no dark tarry sticky stool, and reports significantly increased dizziness and lightheadedness today. He denies any chest pain or shortness of breath. Patient has recently had a sigmoidoscopy and follows with GI, Dr. Price, routinely. He denies any abdominal pain, nausea or vomiting. He has had infrequent abdominal paracentesis in the past. He has been taking all his medications routinely including his lactulose and Xifaxan and has routine bowel movements. In regards to his Lantus, he thinks that he takes about 30 to 32 units daily but is not sure since he has been at a facility where it is managed for him. He has been receiving insulin throughout the day based on a sliding scale. He was hospitalized at [facility] from 07/26-08/10 for hyperosmolar hyperglycemic state, uncontrolled DM type II and MSSA bacteremia with altered mental status likely acute metabolic encephalopathy due to decompensated cirrhosis. He was placed on IV Ancef 2 g every 8 hours for 14-day course started on 08/07, so today would have 2 more days to complete the course. Upon arrival to [facility] on the his hemoglobin was 8.4, on recheck at their facility yesterday he was 6.1, again today was 6.2, and therefore was sent over to the ER for needs for transfusion. Allergies Allergy/AdvReac Type Severity Reaction Status Date / Time No Known Allergies Allergy Mild Verified 04/12/22 08:58 Home Medications Medication Instructions Recorded Confirmed Type citalopram 10 mg tablet (Celexa) 10 mg PO QAM 03/24/20 08/19/22 History omeprazole 40 mg capsule,delayed 40 mg PO QAM 03/24/20 08/19/22 History release allopurinol 100 mg tablet 100 mg PO BID 05/16/20 08/19/22 History rifaximin 550 mg tablet (Xifaxan) 550 mg PO BID 12/08/20 08/19/22 History finasteride 5 mg tablet 5 mg PO QAM 11/03/21 08/19/22 History lactulose 10 gram/15 mL oral See Rx Instructions .Route 03/13/22 08/19/22 History solution .COMPLEX PRN Constipation furosemide 20 mg tablet 20 mg PO QAM 07/26/22 08/19/22 History mirtazapine 30 mg tablet 30 mg PO HS 07/26/22 08/19/22 History spironolactone 25 mg tablet 25 mg PO QAM 07/26/22 08/19/22 History cefazolin 2 gram solution for 2 g IV Q8H 11 days #33 ea 08/10/22 08/19/22 Rx injection ferrous sulfate 325 mg (65 mg 325 mg PO BID #60 tabs 08/10/22 08/19/22 Rx iron) tablet insulin aspart U-100 100 unit/mL 1 unit (0.01 mL) SC UD 30 days 08/10/22 08/19/22 Rx subcutaneous solution (Novolog #0.3 mL U-100 Insulin aspart) insulin glargine 100 unit/mL 30 unit (0.3 mL) subcut DAILY 30 08/10/22 08/19/22 Rx subcutaneous solution (Lantus days #9 mL U-100 Insulin) 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 CKD (chronic kidney disease) stage 3, GFR 30-59 ml/min DVT prophylaxis Esophageal varices Esophageal varices GAVE (gastric antral vascular ectasia) GERD (gastroesophageal reflux disease) Gout NO ISSUES CURRENTLY History of panic attacks Hyperosmolar hyperglycemic state (HHS) Hypertension Prostate cancer (11/10/20) Psoriasis Rectal bleeding Shortness of breath Upper GI bleed Surgical History History of abdominal paracentesis multiple---pt states last was 6 months ago History of colonoscopy with polypectomy History of esophagogastroduodenoscopy (EGD) last 10/25 revealed grade 2 esophageal varices, grade 1 gastric varices STABLE History of prostate biopsy malignant History of tonsillectomy and adenoidectomy S/P TIPS (transjugular intrahepatic portosystemic shunt) Family History Father , "3/4 liver gone due to drinking" Colorectal cancer, Onset Age: 63 Mother Lung cancer Daughter Cancer cervical and thyroid cancers Ovarian cancer Other No family history of adverse response to anesthesia 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 Smoking Status: Never smoker Second Hand Exposure: No; Hx Alcohol Use: No Hx Substance Use: No Preferred Language: Bulgarian Communication Ability: Effective Visual Impairment: No Limitations Hearing Ability: Normal Sky Diver Required: No Beliefs That Will Affect Care: None marital status: Current Living Situation: Spouse 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 How many Children do You have: 6 How many Children do You have Comment: one , eldest daughter in her sleep from seizure disorder Feels Safe at Home: Yes Childhood Exposure to Second-Hand Smoke: Yes Diet Comment: "I watch my sugar, average fasting is 140 mg/dl" caffeine: Yes (cola, sugar free, decaf) during the past year weight has: remained stable Dental Care, Regularly: No Physical Activity Frequency: Does not Exercise Seatbelt Use: always Sunscreen Use: Yes Assistive Devices: Walker Review of Systems Review of Systems: Constitutional: No fever, sweats or chills, + lightheadedness and dizziness Eyes: No diplopia, no worsening or blurred vision ENT: normal hearing, no trouble swallowing Respiratory: No cough, sputum, dyspnea at rest or on exertion Cardiovascular: No chest pain, tightness or palpitations Abdomen: As per HPI, No pain, nausea, vomiting, diarrhea or constipation Musculoskeletal: No joint pain, calf pain, swelling Neurologic: + generalized weakness, no numbness/tingling, or balance problems Psychiatric: No anxiety or depression Skin: No rash or itch Physical Exam Physical Exam: Please refer to attending addendum for complete PE. Results & Data Results & Data ([facility]) Vital Signs (Past 12 Hours) Vital Signs Temp Pulse Pulse Resp BP BP Pulse Ox 08/19/22 15:00 36.7 C 66 20 157/68 H 99 08/19/22 14:45 36.5 C 62 18 142/68 H 100 08/19/22 14:29 36.6 C 62 20 139/65 96 08/19/22 13:08 66 16 134/63 98 08/19/22 12:57 36.5 C 67 20 134/70 94 08/19/22 12:54 O2 Del Method 08/19/22 15:00 08/19/22 14:45 08/19/22 14:29 08/19/22 13:08 Room Air 08/19/22 12:57 Room Air 08/19/22 12:54 Room Air Laboratory Results 08/19/22 08/19/22 08/19/22 14:20 12:38 12:38 WBC RBC Hgb Hct MCV MCH MCHC RDW Std Deviation RDW Coeff of Violetta Plt Count MPV PT INR APTT PTT Ratio Sodium 143 Potassium 4.0 Chloride 113 H Carbon Dioxide 24 Anion Gap 6 BUN 37 H Creatinine 1.47 H Est Cr Clr Drug Dosing 46.9 Est GFR ( Amer) 54.5 Est GFR (Non-Af Amer) 47.0 BUN/Creatinine Ratio 25.2 H Glucose 177 H Calcium 8.4 L Total Bilirubin 2.0 H AST 47 H ALT 8 Alkaline Phosphatase 187 H Ammonia 125.0 H Total Protein 5.8 L Albumin 2.9 L Globulin 2.9 Albumin/Globulin Ratio 1.0 SARS-CoV-2, RNA, NAAT NEGATIVE Blood Type Antibody Screen Crossmatch 08/19/22 08/19/22 08/19/22 12:38 12:38 12:38 WBC 2.88 L RBC 2.01 L Hgb 6.8 L* Hct 21.0 L MCV 104.5 H MCH 33.8 MCHC 32.4 RDW Std Deviation 72.6 H RDW Coeff of Violetta 19.5 H Plt Count 88 L MPV 10.6 PT 11.3 INR 1.1 APTT 24.5 PTT Ratio 0.9 Sodium Potassium Chloride Carbon Dioxide Anion Gap BUN Creatinine Est Cr Clr Drug Dosing Est GFR ( Amer) Est GFR (Non-Af Amer) BUN/Creatinine Ratio Glucose Calcium Total Bilirubin AST ALT Alkaline Phosphatase Ammonia Total Protein Albumin Globulin Albumin/Globulin Ratio SARS-CoV-2, RNA, NAAT Blood Type O Positive Antibody Screen NEGATIVE Crossmatch See Detail Code Status & VTE Plan Code Status Full code - discussed with the patient at bedside Supervising Physician Co-Signing Physician Notes Pt is a 72 y/o M with hx of Cirrhosis with portal HTN s/p TIPS, ascites requiring paracentesis, hx of Portal vein thrombosis, prostate ca s/p radiation, IDDM, hx of GI bleed, CKD III, Psoriasis, pancytopenia admitted for acute drop on hgb with rectal bleeding. PE: NAD, well developed HEENT: no jaundice, normal conjunctiva Lungs: CTA, no wheezing or crackles Heart: Normal S1/S2, no murmur Abd: mildly distended, soft, NT MSK: b/l mild LE pitting edema Skin: diffuse erythematous papular lesions with dry skin Psych: AAOx3, normal affect A/P: Acute drop in Hgb with chronic anemia and rectal bleeding: -VSS -hgb in the ER was 6.8 --- receiving 1 unit of PRBC - Flex sig from 04/2022 showed hemorrhoids with multiple diffuse angiectasias with bleeding -however due to hx of esophageal varices will do Protonix drip ---- pt received octreotide bolus since we are suspecting lower GI bleed will hold off on the drip -GI consult -CBC q6hrs -pt is on ancef for MSSA bacteremia (last dose 08/21/22) Other chronic conditions: plan as above Agree with A/p by Stephanie Sansd PA-C (1) Cirrhosis Ascites presence: without ascites Hepatic cirrhosis type: unspecified hepatic cirrhosis Qualified Code(s): K74.60 - Unspecified cirrhosis of liver
[2022-08-19] MEDS ORDERED: DEXTROSE 50% 50 ML SYRINGE IV PRN (20:10)
[2022-08-19] MEDS ORDERED: GLUCOSE 10 TAB/TUBE PO PRN (20:10)
[2022-08-19] MEDS ORDERED: GLUCOSE 40% GEL 15 GM TUBE PO PRN (20:10)
[2022-08-19] MEDS ORDERED: ONDANSETRON INJ 2 MG/ML 2 ML VIAL IV PRN (20:10)
[2022-08-19] MEDS ORDERED: GLUCAGON FOR INJ 1 MG VIAL SQ PRN (20:10)
[2022-08-19] MEDS ORDERED: CEFAZOLIN 2 GM IV SCH (20:10)
[2022-08-19] MEDS ORDERED: CARBOHYDRATES FOR HYPOGLYCEMIA PO PRN (20:10)
[2022-08-19 21:02] LABS: Hematocrit (blood only) 28.1 % (40.1-51.0); Hemoglobin 9.4 g/dl (14.0-18.0)
[2022-08-19] MEDS: INSULIN ASPART PER UNIT SC SCH ×2 (21:08→21:11)
[2022-08-19] MEDS: ceFAZolin 2000MG 2,000 MG/15 ML SYR IV SCH (21:11)
[2022-08-19] MEDS: allopurinoL 100 MG TAB PO SCH (21:11)
[2022-08-19] MEDS: FERROUS SULFATE 325 MG TAB PO SCH (21:11)
[2022-08-19] MEDS: rifAXIMin 550 MG TABLET PO SCH (21:12)
[2022-08-19] MEDS: MIRTAZAPINE TAB 15 MG TAB PO SCH (21:12)
[2022-08-20] MEDS: PANTOprazole 40 MG in DEXTROSE 5% 100 ML IV SCH ×6 (00:56→23:59)
[2022-08-20] MEDS: ceFAZolin 2000MG 2,000 MG/15 ML SYR IV SCH ×3 (05:30→20:32)
[2022-08-20 06:50] LABS: Hematocrit (blood only) 24.2 % (40.1-51.0); Hemoglobin 8.1 g/dl (14.0-18.0); Mean Platelet Volume 10.8 fL (9.4-12.4); Platelet Count 73 K/uL (130-400); White Blood Count 2.57 K/ul (4.8-10.8)
[2022-08-20 07:16] LABS: Albumin Level 2.4 gm/dl (3.4-5.0); BUN Creatinine Ratio 28.1 (10-20); Bilirubin,Total 3.2 mg/dl (0.2-1.0); Calcium 7.8 mg/dl (8.5-10.1); Creatinine Clr Calc Pharmacy 53.9 ml/min; Est GFR (African American) 64.4 ml/min; Est GFR (Non-African American) 55.5 ml/min; Globulin 2.4 gm/dl (2.5-4.0); Magnesium 1.9 mg/dl (1.7-2.4); Potassium 3.8 mmol/L (3.5-5.1); Total Protein 4.8 gm/dl (6.0-8.3)
[2022-08-20 07:19] LABS: Mean Corpuscular Hemoglobin 32.8 pg (25.0-34.0); Mean Corpuscular Hgb Conc 33.5 g/dL (32.0-36.0); RDW Coefficient of Variation 19.5 % (11.5-14.5); RDW Standard Deviation 65.1 fL (36.4-46.3); Red Blood Count 2.47 M/uL (4.63-6.08)
[2022-08-20 08:22] LABS: Estimated Average Glucose 94 mg/dl; Hemoglobin A1C 4.9 % (4.5-5.6)
[2022-08-20] MEDS ORDERED: PANTOprazole 40 MG TAB PO SCH (09:00)
[2022-08-20] MEDS: INSULIN ASPART PER UNIT SC SCH ×4 (09:20→20:44)
--- NOTE | 2022-08-20 10:50 | Gastrointestinal Consultation ---
Date of Consultation August 20, 2022 Assessment & Plan (1) Anemia: (2) Melena: (3) Esophageal varices: Plan 1. Continue antibiotic coverage as cirrhotics with esophageal varices have better outcomes if they are on antibiotics. For now on cefazolin, Cipro would also be acceptable from a GI standpoint. 2. Continue octreotide and Protonix drips. 3. Clear liquids p.o. today. 4. We will plan for EGD tomorrow. Supervising Physician Co-Signing Physician Notes I have personally seen and examined the patient with JEFF Archibald. Her note reflects my exam and findings. I agree with her impression and plan. Will arrange EGD looking for high risk upper GI bleed site. Andrea Sosa M.D. History of Present Illness Reason for Consultation: Anemia, GI Bleed Requesting Physician: Fly Sands PA-C Attending Physician: Carlos Avalos MD History of Present Illness Luis Hale is a 72 yr old male pt of Dr. Cisse with a hx of FOFANA cirrhosis w EV, ascites S/P Tips in Oct 2020, w a hx of hx of HCC S/P bland embolization in January 2022 and prior hepatic encephalopathy. He was also admitted here a few weeks ago with SBP. He was transferred from [facility] to the ED yesterday for red BMs. He follows w Liver transplant in [place] and is listed, awaiting transplant. He has had rectal bleeding previously from hemorrhoids and radiation proctitis (hx of prostate CA tx with radiation). Most recent Flex sig in January 2022 and April 2022 radiation proctitis was [facility]ed and int hemorrhoids were seen. Most recent full colonoscopy in Nov 2021 w similar findings. Most recent EGD was in Oct 2020 w Grade I-II EV, portal HTN. He is intolerant of BB. He tells me that he passed 1 loose black/red bowel movement yesterday prior to arrival, and nursing documented a large black, tarry BM yesterday afternoon. Today, he has not yet passed a bowel movement. Hemoglobin on arrival was 6.8. He received 2 units of RBCs and hemoglobin this morning is 8.1. BUN is 36. C reatinine is at his baseline of 1.2. He is awake alert oriented hemodynamically stable and free of pain. He does not have any confusion. He is on pantoprazole and octreotide drips. Allergies Allergy/AdvReac Type Severity Reaction Status Date / Time No Known Allergies Allergy Mild Verified 04/12/22 08:58 Home Medications Medication Instructions Recorded Confirmed Type citalopram 10 mg tablet (Celexa) 10 mg PO QAM 03/24/20 08/19/22 History omeprazole 40 mg capsule,delayed 40 mg PO QAM 03/24/20 08/19/22 History release allopurinol 100 mg tablet 100 mg PO BID 05/16/20 08/19/22 History rifaximin 550 mg tablet (Xifaxan) 550 mg PO BID 12/08/20 08/19/22 History finasteride 5 mg tablet 5 mg PO QAM 11/03/21 08/19/22 History lactulose 10 gram/15 mL oral See Rx Instructions .Route 03/13/22 08/19/22 History solution .COMPLEX PRN Constipation furosemide 20 mg tablet 20 mg PO QAM 07/26/22 08/19/22 History mirtazapine 30 mg tablet 30 mg PO HS 07/26/22 08/19/22 History spironolactone 25 mg tablet 25 mg PO QAM 07/26/22 08/19/22 History cefazolin 2 gram solution for 2 g IV Q8H 11 days #33 ea 08/10/22 08/19/22 Rx injection ferrous sulfate 325 mg (65 mg 325 mg PO BID #60 tabs 08/10/22 08/19/22 Rx iron) tablet insulin aspart U-100 100 unit/mL 1 unit (0.01 mL) SC UD 30 days 08/10/22 08/19/22 Rx subcutaneous solution (Novolog #0.3 mL U-100 Insulin aspart) insulin glargine 100 unit/mL 30 unit (0.3 mL) subcut DAILY 30 08/10/22 08/19/22 Rx subcutaneous solution (Lantus days #9 mL U-100 Insulin) Patient History Medical History Anemia Anemia of chronic disease 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 CKD (chronic kidney disease) stage 3, GFR 30-59 ml/min DVT prophylaxis Esophageal varices Esophageal varices GAVE (gastric antral vascular ectasia) GERD (gastroesophageal reflux disease) Gout NO ISSUES CURRENTLY History of panic attacks Hyperosmolar hyperglycemic state (HHS) Hypertension Prostate cancer (11/10/20) Psoriasis Rectal bleeding Shortness of breath Upper GI bleed Surgical History History of abdominal paracentesis multiple---pt states last was 6 months ago History of colonoscopy with polypectomy History of esophagogastroduodenoscopy (EGD) last 10/25 revealed grade 2 esophageal varices, grade 1 gastric varices STABLE History of prostate biopsy malignant History of tonsillectomy and adenoidectomy S/P TIPS (transjugular intrahepatic portosystemic shunt) Family History Father , "3/4 liver gone due to drinking" Colorectal cancer, Onset Age: 63 Mother Lung cancer Daughter Cancer cervical and thyroid cancers Ovarian cancer Other No family history of adverse response to anesthesia 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 Smoking Status: Never smoker Second Hand Exposure: No; Hx Alcohol Use: No Hx Substance Use: No Preferred Language: Guatemalan Communication Ability: Effective Visual Impairment: No Limitations Hearing Ability: Normal Pcts Required: No Beliefs That Will Affect Care: None marital status: Current Living Situation: Spouse 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 How many Children do You have: 6 How many Children do You have Comment: one , eldest daughter in her sleep from seizure disorder Other Information That Helps Us Care for You: No Feels Safe at Home: Yes Safety Concerns: Feels Safe At This Time Childhood Exposure to Second-Hand Smoke: Yes Diet Comment: "I watch my sugar, average fasting is 140 mg/dl" caffeine: Yes (cola, sugar free, decaf) during the past year weight has: remained stable Dental Care, Regularly: No Physical Activity Frequency: Does not Exercise Seatbelt Use: always Sunscreen Use: Yes Assistive Devices: Walker Review of Systems Review of Systems: ROS: Gen: + generally weak. No fevers, weight loss Eyes: No eye redness, or pain, no recent vision changes Resp: No SOB, no cough Cardio: No palpitations/irregular beats, no chest pain GI: No abdominal pain, no nausea/vomiting : Denies pain on urination Skin: + mild jaundice, chronic rash of psoriatic arthritis. No new skin rashe s/lesions. Constitutional: +weakness, weight loss, denies fevers Eyes: No eye redness, no impaired vision or double vision Physical Exam Constitutional: General: well developed, + ill appearing (chr onically) and + th in Eyes: icterus; PEARLA ENMT: external ear and n ose normal, oropha rynx normal Neck: trachea midline, n o thyromegaly Respiratory: normal respiratory effort, lungs kita ar to auscultation Cardiovascular:H RRR, no murmur, no edema Gastrointestinal ( Abdomen): normal bowel sound s, soft, nontender , no hepatosplenom egaly no ascites Skin: +jaundice; rash o f psoriasis Neurologic: no asterixes Psychiatric: A+Ox3, euthymic af fect Results & Data ([facility]) Vital Signs (Past 12 Hours) Vital Signs Temp Pulse Pulse Pulse Resp BP Pulse Ox 08/20/22 06:06 58 L 08/20/22 07:57 36.5 C 60 18 140/74 95 08/20/22 00:00 08/20/22 03:11 36.6 C 57 L 18 93/77 L 93 08/20/22 00:00 57 L 08/20/22 00:57 36.6 C 58 L 18 107/58 L 96 Pulse Ox O2 Del Method O2 Del Method 08/20/22 06:06 08/20/22 07:57 Room Air 08/20/22 00:00 93 Room Air 08/20/22 03:11 Room Air 08/20/22 00:00 08/20/22 00:57 Room Air Laboratory Results WBC 2.57, Hb 8.1, HCT 24.2, PLT S 73, PT 11.3, INR 1.1, NA 143, K3.8, CL 114, CO2 24, BUN 36, creatinine 1.28, glucose 82. T bili 3.2, AST 40, ALT 7, alk phos 147 Diagnostic Findings Noncontrast CTAP 08/03/2022 1. Significantly suboptimal examination without oral and IV contrast. There is also streak and motion artifact. 2. The liver is cirrhotic in morphology and heterogeneous in attenuation. A TIPS catheter is in place. 3. Splenomegaly and a small volume of abdominopelvic ascites indicate portal hypertension. 4. Moderate constipation. GB US 07/30/22:Cirrhosis and moderate ascites. No focal liver mass.
[2022-08-20] MEDS: CITALOPRAM 20 MG TAB PO SCH (11:50)
[2022-08-20] MEDS: FERROUS SULFATE 325 MG TAB PO SCH ×2 (11:50→20:33)
[2022-08-20] MEDS: rifAXIMin 550 MG TABLET PO SCH ×2 (11:50→20:34)
[2022-08-20] MEDS: SPIRONOLACTONE 25 MG TAB PO SCH (11:51)
[2022-08-20] MEDS: FINASTERIDE 5 MG TAB PO SCH (11:51)
[2022-08-20] MEDS: FUROSEMIDE 20 MG TAB PO SCH (11:51)
[2022-08-20] MEDS: allopurinoL 100 MG TAB PO SCH ×2 (11:51→20:33)
[2022-08-20] MEDS: LANTUS PER UNIT CHARGE SQ SCH (11:56)
--- NOTE | 2022-08-20 12:39 | Electrocardiogram Report ---
Test Reason : Blood Pressure : / mmHG Vent. Rate : 066 BPM Atrial Rate : 066 BPM P-R Int : 194 ms QRS Dur : 094 ms QT Int : 542 ms P-R-T Axes : 053 006 063 degrees QTc Int : 568 ms Normal sinus rhythm Nonspecific ST abnormality Prolonged QT Abnormal ECG When compared with ECG of 26-JUL-2022 14:47, Nonspecific T wave abnormality no longer evident in Anterior leads QT has lengthened Confirmed by Emeterio Ackerman ([id number]) on 08/20/2022 12:38:55 PM Referred By: NO PCP Confirmed By:Emeterio Ackerman
--- NOTE | 2022-08-20 13:44 | Hospitalist Progress Note ---
Date of Service August 20, 2022 Assessment & Plan (1) Anemia of chronic disease: (2) Acute lower GI bleeding: Plan: -Presented with bright red rectal bleed - Trending H&H every 6, hemoglobin here is 6.8, receiving PRBC x2 - Consult GI, Dr. Duncan on-call, Follows with Dr. Price - Protonix 40 mg IV BID started, given octreotide in the ER, will hold on further octreotide for now since BRBPR and seems to be lower. 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 -On transplant list at [facility], status post TIPS procedure -Holding lactulose as above today, resume per day team -No metabolic encephalopathy on admission -LFTs with T bili equals 2.0, AST 47, alk phos 187, albumin is 2.9 -Continue Lasix and spironolactone with blood transfusions to avoid flash pulmonary edema/volume overload -EGD tomorrow (6) T2DM (type 2 diabetes mellitus): Plan: -Lantus reduced to 15 units daily down from 30 with current n.p.o. status -ISS with Accu-Cheks ACHS -Last A1c is 9.1 on 07/27 (7) CKD (chronic kidney disease) stage 3, GFR 30-59 ml/min: Plan: -History of such, follow BUN/creatinine, 37/1.47 on admission -Kidney function remains normal at 36/1.28 (8) Prostate cancer: Plan: Diagnosed in 2019, [place] 3+3 on Eligard s/p XRT DVT PPx: - teds, scds CODE: Full code Dispo: From [facility], likely to remain in the hospital x 1-2 days, CM to assist with discharge planning Admission and Anticipated Discharge Date Admission Date: August 19, 2022 Subjective 08/20/2022 The patient was seen and examined in telemetry unit He was admitted with bright red rectal bleed without any abdominal symptoms No history of hematemesis and or melena Has been feeling much better since admission Review of Systems Review of Systems: All systems reviewed and are unremarkable except as noted below Physical Exam Physical Exam: Lying in bed comfortably Constitutional: well developed, well nourished, + ill appearing and + obese Eyes: PERRL, conjunctivae normal, anicteric sclerae ENMT: external ear and nose normal, oropharynx normal Neck: trachea midline, no thyromegaly Respiratory: no respiratory distress Auscultation: lungs clear to auscultation bilaterally Cardiovascular: Rate/Rhythm: regular rate and regular rhythm; not tachycardic Heart Sounds: normal S1 and normal S2; no murmur Extremities: + edema (Trace edema bilateral) Gastrointestinal (Abdomen): Inspection/Auscultation: normal bowel sounds; abdomen not distended Percussion/Palpation: abdomen soft; abdomen nontender Musculoskeletal: No acute arthritis in any joint Neurologic: Alert, awake and oriented x3 Psychiatric: A+Ox3, euthymic affect Lymphatic: no cervical or axillary lymphadenopathy Results & Data Results & Data ([facility]) Vital Signs (Past 12 Hours) Vital Signs Temp Pulse Pulse Pulse Resp BP Pulse Ox 08/20/22 11:25 36.5 C 64 18 138/61 99 08/20/22 06:06 58 L 08/20/22 07:57 36.5 C 60 18 140/74 95 08/20/22 03:11 36.6 C 57 L 18 93/77 L 93 O2 Del Method 08/20/22 11:25 Room Air 08/20/22 06:06 08/20/22 07:57 Room Air 08/20/22 03:11 Room Air Laboratory Results Short CBC 08/19/22 08/20/22 Range/Units 20:51 05:38 WBC 2.57 L (4.8-10.8) K/ul Hgb 9.4 L 8.1 L (14.0-18.0) g/dl Hct 28.1 L 24.2 L (40.1-51.0) % Plt Count 73 L (130-400) K/uL BMP 08/20/22 05:38 Sodium 143 Potassium 3.8 Chloride 114 H Carbon Dioxide 24 BUN 36 H Creatinine 1.28 Glucose 82 Calcium 7.8 L Liver Function 08/20/22 Range/Units 05:38 Total Bilirubin 3.2 H D (0.2-1.0) mg/dl AST 40 H (13-39) U/L ALT 7 (7-52) U/L Alkaline Phosphatase 147 H (34-104) U/L Albumin 2.4 L (3.4-5.0) gm/dl Medications Administered Current Inpatient Medications Allopurinol (Allopurinol 100 Mg Tab) 100 mg PO BID [facility] Stop: 09/18/22 20:59 Last Admin: 08/20/22 11:51 Dose: 100 mg Citalopram Hydrobromide (Citalopram 20 Mg Tab) 10 mg PO QAM [facility] Stop: 09/19/22 08:59 Last Admin: 08/20/22 11:50 Dose: 10 mg Dextrose (Dextrose 50% 50 Ml Syringe) 25 - 50 ml IV UD PRN; Protocol PRN Reason: Hypoglycemia Protocol Stop: 09/18/22 20:09 Ferrous Sulfate (Ferrous Sulfate 325 Mg Tab) 325 mg PO BID [facility] Stop: 09/18/22 20:59 Last Admin: 08/20/22 11:50 Dose: 325 mg Finasteride (Finasteride 5 Mg Tab) 5 mg PO QAM JODI Stop: 09/19/22 08:59 Last Admin: 08/20/22 11:51 Dose: 5 mg Furosemide (Furosemide 20 Mg Tab) 20 mg PO QAM JODI Stop: 09/19/22 08:59 Last Admin: 08/20/22 11:51 Dose: 20 mg Glucagon (Glucagon For Inj 1 Mg Vial) 1 mg SQ UD PRN; Protocol PRN Reason: Hypoglycemia Protocol Stop: 09/18/22 20:09 Glucose (Glucose 40% Gel 15 Gm Tube) 15 - 30 gm PO UD PRN; Protocol PRN Reason: Hypoglycemia Protocol Stop: 09/18/22 20:09 Glucose (Glucose 10 Tab/Tube) 4 - 8 tab PO UD PRN; Protocol PRN Reason: Hypoglycemia Treatment Stop: 09/18/22 20:09 Pantoprazole Sodium 40 mg/ (Dextrose) 100 mls @ 20 mls/hr IV Q5H [facility] Stop: 09/18/22 13:29 Last Admin: 08/20/22 10:21 Dose: 8 mg/hr, 20 mls/hr Cefazolin Sodium (Ancef 2000mg) 2,000 mg in 15 mls @ 3.75 mls/min IV Q8H [facility] Stop: 08/21/22 20:59 Last Admin: 08/20/22 05:30 Dose: 3.75 mls/min Insulin Aspart (Insulin Aspart Per Unit) 0 units SC ACHS [facility] Stop: 09/18/22 20:09 Last Admin: 08/20/22 11:56 Dose: 3 units Insulin Glargine (Lantus Per Unit Charge) 15 units SQ DAILY [facility] Stop: 09/19/22 08:59 Last Admin: 08/20/22 11:56 Dose: 15 units Mirtazapine (Mirtazapine Tab 15 Mg Tab) 30 mg PO HS [facility] Stop: 09/18/22 20:59 Last Admin: 08/19/22 21:12 Dose: Not Given Miscellaneous (Carbohydrates For Hypoglycemia ) 15 - 30 gm PO UD PRN PRN Reason: Hypoglycemia Protocol Stop: 09/18/22 20:09 Ondansetron HCl (Ondansetron Inj 2 Mg/Ml 2 Ml Vial) 4 mg IV Q4H PRN PRN Reason: Nausea And Vomiting Stop: 09/18/22 20:09 Pantoprazole Sodium (Pantoprazole 40 Mg Tab) 40 mg PO QAM [facility] Stop: 09/19/22 08:59 Rifaximin (Rifaximin 550 Mg Tablet) 550 mg PO BID [facility] Stop: 09/18/22 20:59 Last Admin: 08/20/22 11:50 Dose: 550 mg Spironolactone (Spironolactone 25 Mg Tab) 25 mg PO QAM [facility] Stop: 09/19/22 08:59 Last Admin: 08/20/22 11:51 Dose: 25 mg (1) Cirrhosis Ascites presence: without ascites Hepatic cirrhosis type: unspecified hepatic cirrhosis Qualified Code(s): K74.60 - Unspecified cirrhosis of liver
[2022-08-20] MEDS: MIRTAZAPINE TAB 15 MG TAB PO SCH (20:34)
[2022-08-21] MEDS: ceFAZolin 2000MG 2,000 MG/15 ML SYR IV SCH ×2 (04:33→12:20)
[2022-08-21] MEDS: PANTOprazole 40 MG in DEXTROSE 5% 100 ML IV SCH (04:40)
[2022-08-21 06:46] LABS: Basophils # (auto) 0.02 K/uL (0-0.2); Basophils % (auto) 0.7 %; Eosinophils # (auto) 0.21 K/uL (0-0.50); Eosinophils % (auto) 7.7 %; Hematocrit (blood only) 24.1 % (40.1-51.0); Hemoglobin 8.2 g/dl (14.0-18.0); Immature Granulocytes # (auto) 0.01 K/uL (0.00-0.02); Immature Granulocytes % (auto) 0.4 %; Lymphocytes # (auto) 0.74 K/uL (1.2-3.4); Lymphocytes % (auto) 27.3 %; Mean Platelet Volume 10.9 fL (9.4-12.4); Monocytes % (auto) 7.4 %; Neutrophils # (auto) 1.53 K/uL (1.4-6.5); Neutrophils % (auto) 56.5 %; Platelet Count 72 K/uL (130-400); White Blood Count 2.71 K/ul (4.8-10.8)
[2022-08-21 07:06] LABS: Albumin Globulin Ratio 0.9 (0.9-2); Albumin Level 2.5 gm/dl (3.4-5.0); BUN Creatinine Ratio 20.1 (10-20); Bilirubin,Total 3.6 mg/dl (0.2-1.0); Calcium 7.7 mg/dl (8.5-10.1); Creatinine Clr Calc Pharmacy 47.9 ml/min; Est GFR (African American) 55.8 ml/min; Est GFR (Non-African American) 48.2 ml/min; Globulin 2.7 gm/dl (2.5-4.0); Potassium 3.7 mmol/L (3.5-5.1); Total Protein 5.2 gm/dl (6.0-8.3)
[2022-08-21 07:14] LABS: Mean Corpuscular Hemoglobin 32.5 pg (25.0-34.0); Mean Corpuscular Volume 95.6 fL (80.0-100.0); RDW Coefficient of Variation 18.7 % (11.5-14.5); RDW Standard Deviation 64.2 fL (36.4-46.3); Red Blood Count 2.52 M/uL (4.63-6.08)
[2022-08-21] MEDS: INSULIN ASPART PER UNIT SC SCH ×4 (07:38→20:18)
--- NOTE | 2022-08-21 08:13 | History & Physical Report ---
Date of Service August 21, 2022 Assessment & Plan (1) Blood loss anemia: Plan: stable for EGD Admission and Anticipated Discharge Date Admission Date: August 19, 2022 History of Present Illness Chief Complaint: blood loss anemia Primary Care Provider: Francisco Cisse MD pt with blood loss anemia for EGD Allergies Allergy/AdvReac Type Severity Reaction Status Date / Time No Known Allergies Allergy Mild Verified 04/12/22 08:58 Home Medications Medication Instructions Recorded Confirmed Type citalopram 10 mg tablet (Celexa) 10 mg PO QAM 03/24/20 08/19/22 History omeprazole 40 mg capsule,delayed 40 mg PO QAM 03/24/20 08/19/22 History release allopurinol 100 mg tablet 100 mg PO BID 05/16/20 08/19/22 History rifaximin 550 mg tablet (Xifaxan) 550 mg PO BID 12/08/20 08/19/22 History finasteride 5 mg tablet 5 mg PO QAM 11/03/21 08/19/22 History lactulose 10 gram/15 mL oral See Rx Instructions .Route 03/13/22 08/19/22 History solution .COMPLEX PRN Constipation furosemide 20 mg tablet 20 mg PO QAM 07/26/22 08/19/22 History mirtazapine 30 mg tablet 30 mg PO HS 07/26/22 08/19/22 History spironolactone 25 mg tablet 25 mg PO QAM 07/26/22 08/19/22 History cefazolin 2 gram solution for 2 g IV Q8H 11 days #33 ea 08/10/22 08/19/22 Rx injection ferrous sulfate 325 mg (65 mg 325 mg PO BID #60 tabs 08/10/22 08/19/22 Rx iron) tablet insulin aspart U-100 100 unit/mL 1 unit (0.01 mL) SC UD 30 days 08/10/22 08/19/22 Rx subcutaneous solution (Novolog #0.3 mL U-100 Insulin aspart) insulin glargine 100 unit/mL 30 unit (0.3 mL) subcut DAILY 30 08/10/22 08/19/22 Rx subcutaneous solution (Lantus days #9 mL U-100 Insulin) 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 CKD (chronic kidney disease) stage 3, GFR 30-59 ml/min DVT prophylaxis Esophageal varices Esophageal varices GAVE (gastric antral vascular ectasia) GERD (gastroesophageal reflux disease) Gout NO ISSUES CURRENTLY History of panic attacks Hyperosmolar hyperglycemic state (HHS) Hypertension Prostate cancer (11/10/20) Psoriasis Rectal bleeding Shortness of breath Upper GI bleed Surgical History History of abdominal paracentesis multiple---pt states last was 6 months ago History of colonoscopy with polypectomy History of esophagogastroduodenoscopy (EGD) last 10/25 revealed grade 2 esophageal varices, grade 1 gastric varices STABLE History of prostate biopsy malignant History of tonsillectomy and adenoidectomy S/P TIPS (transjugular intrahepatic portosystemic shunt) Family History Father , "3/4 liver gone due to drinking" Colorectal cancer, Onset Age: 63 Mother Lung cancer Daughter Cancer cervical and thyroid cancers Ovarian cancer Other No family history of adverse response to anesthesia 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 Smoking Status: Never smoker Second Hand Exposure: No; Hx Alcohol Use: No Hx Substance Use: No Preferred Language: Indonesian Communication Ability: Effective Visual Impairment: No Limitations Hearing Ability: Normal Um Nurse Required: No Beliefs That Will Affect Care: None marital status: Current Living Situation: Spouse 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 How many Children do You have: 6 How many Children do You have Comment: one , eldest daughter in her sleep from seizure disorder Other Information That Helps Us Care for You: No Feels Safe at Home: Yes Safety Concerns: Feels Safe At This Time Childhood Exposure to Second-Hand Smoke: Yes Diet Comment: "I watch my sugar, average fasting is 140 mg/dl" caffeine: Yes (cola, sugar free, decaf) during the past year weight has: remained stable Dental Care, Regularly: No Physical Activity Frequency: Does not Exercise Seatbelt Use: always Sunscreen Use: Yes Assistive Devices: Walker Results & Data ([facility]) Vital Signs (Past 12 Hours) Vital Signs Temp Pulse Pulse Resp BP Pulse Ox Pulse Ox 08/21/22 03:05 36.9 C 60 18 132/69 97 08/21/22 00:30 62 08/21/22 00:30 94 08/20/22 22:34 36.9 C 63 18 131/56 L 94 O2 Del Method O2 Del Method 08/21/22 03:05 Room Air 08/21/22 00:30 08/21/22 00:30 Room Air 08/20/22 22:34 Room Air Code Status & VTE Plan VTE Prophylaxis Plan VTE Prophylaxis will be ordered: Yes
[2022-08-21] MEDS ORDERED: LIDOCAINE 2% MPF LOCAL 5 ML VIAL INFIL ONE (08:20)
[2022-08-21] MEDS ORDERED: PROPOFOL IV EMULSION 10 MG/ML 20 ML VIAL IV ONE (08:20)
--- NOTE | 2022-08-21 08:20 | Anesthesiology Consultation ---
Date of Service August 21, 2022 Assessment & Plan Chart Review Chart Review: Acceptable Risk for Surgery Consults Requested none ASA ASA3 Proposed Anesthesia Anesthesia Type: MAC Risk / Benefits Reviewed With: PT / POA / Parent / Guardian, Accepts Plan and Informed Consent Obtained History Surgery Operation Date: 08/21/22 16:00 Proposed Procedures p Esophagogastroduodenoscopy Dr Sosa - Andrea Sosa MD Height/Weight Height: 5 ft 10 in Weight: 76.5 kg Allergies Allergy/AdvReac Type Severity Reaction Status Date / Time No Known Allergies Allergy Mild Verified 04/12/22 08:58 Medications Home Medications Medication Instructions Recorded Confirmed Last Taken citalopram 10 mg tablet (Celexa) 10 mg PO QAM 03/24/20 08/19/22 04/11/22 omeprazole 40 mg capsule,delayed 40 mg PO QAM 03/24/20 08/19/22 04/11/22 release allopurinol 100 mg tablet 100 mg PO BID 05/16/20 08/19/22 04/11/22 rifaximin 550 mg tablet (Xifaxan) 550 mg PO BID 12/08/20 08/19/22 04/11/22 finasteride 5 mg tablet 5 mg PO QAM 11/03/21 08/19/22 04/11/22 lactulose 10 gram/15 mL oral See Rx Instructions .Route 03/13/22 08/19/22 Unknown solution .COMPLEX PRN Constipation furosemide 20 mg tablet 20 mg PO QAM 07/26/22 08/19/22 Unknown mirtazapine 30 mg tablet 30 mg PO HS 07/26/22 08/19/22 Unknown spironolactone 25 mg tablet 25 mg PO QAM 07/26/22 08/19/22 Unknown cefazolin 2 gram solution for 2 g IV Q8H 11 days #33 ea 08/10/22 08/19/22 Unknown injection ferrous sulfate 325 mg (65 mg 325 mg PO BID #60 tabs 08/10/22 08/19/22 Unknown iron) tablet insulin aspart U-100 100 unit/mL 1 unit (0.01 mL) SC UD 30 days 08/10/22 08/19/22 Unknown subcutaneous solution (Novolog #0.3 mL U-100 Insulin aspart) insulin glargine 100 unit/mL 30 unit (0.3 mL) subcut DAILY 30 08/10/22 08/19/22 Unknown subcutaneous solution (Lantus days #9 mL U-100 Insulin) Active Medications Generic Name Dose Route Start Last Admin Trade Name Rachell PRN Reason Stop Dose Admin Allopurinol 100 mg 08/19/22 21:00 08/20/22 20:33 Allopurinol 100 Mg Tab PO 09/18/22 20:59 100 mg BID JODI Administration Citalopram Hydrobromide 10 mg 08/20/22 09:00 08/20/22 11:50 Citalopram 20 Mg Tab PO 09/19/22 08:59 10 mg QAM JODI Administration Ferrous Sulfate 325 mg 08/19/22 21:00 08/20/22 20:33 Ferrous Sulfate 325 Mg Tab PO 09/18/22 20:59 325 mg BID JODI Administration Finasteride 5 mg 08/20/22 09:00 08/20/22 11:51 Finasteride 5 Mg Tab PO 09/19/22 08:59 5 mg QAM JODI Administration Furosemide 20 mg 08/20/22 09:00 08/20/22 11:51 Furosemide 20 Mg Tab PO 09/19/22 08:59 20 mg QAM JODI Administration Pantoprazole Sodium 40 mg/ 100 mls @ 20 mls/hr 08/19/22 13:30 08/21/22 04:40 Dextrose IV 09/18/22 13:29 8 mg/hr Q5H JODI 20 mls/hr Administration 8 MG/HR Cefazolin Sodium 2,000 mg in 15 mls @ 3.75 mls/min 08/19/22 21:00 08/21/22 04:33 Ancef 2000mg IV 08/21/22 20:59 3.75 mls/min Q8H JODI Administration Insulin Aspart 0 units 08/19/22 20:10 08/21/22 07:38 Insulin Aspart Per Unit SC 09/18/22 20:09 Not Given ACHS JODI Insulin Glargine 15 units 08/20/22 09:00 08/20/22 11:56 Lantus Per Unit Charge SQ 09/19/22 08:59 15 units DAILY JODI Administration Mirtazapine 30 mg 08/19/22 21:00 08/20/22 20:34 Mirtazapine Tab 15 Mg Tab PO 09/18/22 20:59 30 mg HS JODI Administration Rifaximin 550 mg 08/19/22 21:00 08/20/22 20:34 Rifaximin 550 Mg Tablet PO 09/18/22 20:59 550 mg BID JODI Administration Spironolactone 25 mg 08/20/22 09:00 08/20/22 11:51 Spironolactone 25 Mg Tab PO 09/19/22 08:59 25 mg QAM JODI Administration NPO Date Last Intake of Fluids: 08/21/22 Time Last Intake of Fluids: 21:30 Date Last Intake of Solids: 08/19/22 Past Medical History Medical History Anemia Anemia of chronic disease 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 CKD (chronic kidney disease) stage 3, GFR 30-59 ml/min DVT prophylaxis Esophageal varices Esophageal varices GAVE (gastric antral vascular ectasia) GERD (gastroesophageal reflux disease) Gout NO ISSUES CURRENTLY History of panic attacks Hyperosmolar hyperglycemic state (HHS) Hypertension Prostate cancer (11/10/20) Psoriasis Rectal bleeding Shortness of breath Upper GI bleed Exercise / Class Metabolic Activity III < 4 Walking/Shop/Light housework Past Family History Family History Father , "3/4 liver gone due to drinking" Colorectal cancer, Onset Age: 63 Mother Lung cancer Daughter Cancer cervical and thyroid cancers Ovarian cancer Other No family history of adverse response to anesthesia Past Surgical History Surgical History History of abdominal paracentesis multiple---pt states last was 6 months ago History of colonoscopy with polypectomy History of esophagogastroduodenoscopy (EGD) last 10/25 revealed grade 2 esophageal varices, grade 1 gastric varices STABLE History of prostate biopsy malignant History of tonsillectomy and adenoidectomy S/P TIPS (transjugular intrahepatic portosystemic shunt) Past Anesthesia History No Hx of Anesthesia Complications and No Family Hx of Anesthesia Complications History of PONV No Hx of PONV and No Hx of Motion Sickness 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 Smoking Status: Never smoker Hx Alcohol Use: No Hx Substance Use: No substance use type: does not use Review of Systems Constitutional: as per Subjective / HPI Eyes: as per Subjective / HPI Ear, Nose, Mouth, Throat: as per Subjective / HPI Respiratory: as per Subjective / HPI Cardiovascular: as per Subjective / HPI Gastrointestinal: + blood in stools Genitourinary (Male): + as per Subjective / HPI ambulatory dysfunction Integumentary: + unusual bruising Neurologic: as per Subjective / HPI Psychiatric: as per Subjective / HPI Endocrine: as per Subjective / HPI anemia Allergy / Immunological: as per Subjective / HPI Physical Exam Vital Signs Last Vital Signs Temp 36.4 C L 08/21/22 08:12 Pulse 67 08/21/22 08:12 Resp 16 08/21/22 08:12 BP 163/77 H 08/21/22 08:12 Pulse Ox 97 08/21/22 08:12 O2 Del Method 08/21/22 08:12 ENMT Mouth: no TMJ abnormality Thyromental Distance: > or= 3.5 Finger Breadths Mallampati Class: I missing a few teeth Neck normal visual inspection Respiratory normal respiratory effort Auscultation: lungs clear to auscultation bilaterally Cardiovascular Rate/Rhythm: regular rate and regular rhythm Musculoskeletal Spine: normal cervical ROM bruising on distal extremities Neurologic moves all extremities Psychiatric Orientation: alert and oriented x 3 Testing Laboratory Results 08/21/22 05:50 08/21/22 05:50 PT 11.3 Seconds (9.0-12.0) 08/19/22 12:38 INR 1.1 (0.9-1.1) 08/19/22 12:38 APTT 24.5 Seconds (21.0-31.0) 08/19/22 12:38 Hemoglobin A1c 4.9 % (4.5-5.6) 08/20/22 05:38 Blood Type O Positive 08/19/22 12:38 Antibody Screen NEGATIVE 08/19/22 12:38 08/21/22 08/20/22 07:28 20:42 POC Glucose 96 103 H
--- NOTE | 2022-08-21 09:00 | Anesthesiology Progress Note ---
Date of Service August 21, 2022 Anesthesia Post Procedure Vital Signs Vital Signs: Temp Pulse Pulse Resp BP Pulse Ox Pulse Ox 08/21/22 08:56 58 L 18 132/61 98 08/21/22 08:43 57 L 18 107/54 L 96 08/21/22 08:12 36.4 C L 67 16 163/77 H 97 08/21/22 03:05 36.9 C 60 18 132/69 97 08/21/22 00:30 62 08/21/22 00:30 94 08/20/22 22:34 36.9 C 63 18 131/56 L 94 08/20/22 19:51 36.9 C 61 18 139/65 97 08/20/22 15:33 36.7 C 62 22 123/60 95 08/20/22 14:20 61 08/20/22 11:25 36.5 C 64 18 138/61 99 O2 Del Method O2 Del Method 08/21/22 08:56 Room Air 08/21/22 08:43 Room Air 08/21/22 08:12 Room Air 08/21/22 03:05 Room Air 08/21/22 00:30 08/21/22 00:30 Room Air 08/20/22 22:34 Room Air 08/20/22 19:51 Room Air 08/20/22 15:33 Room Air 08/20/22 14:20 08/20/22 11:25 Room Air Transfer of Care Handoff Completed per policy Notes Mental Status: alert / awake / arousable and participated in evaluation Patient Amnestic to Procedure: Yes Nausea / Vomiting: adequately controlled Pain: adequately controlled Airway Patency, RR, SpO2: stable & adequate BP & HR: stable & adequate Hydration State: stable & adequate Anesthetic Complications: no major complications apparent and Pt Satisfied with anesthetic care
--- NOTE | 2022-08-21 09:02 | GI REPORT ---
Patient Name: Luis Hale Procedure Date: 08/21/2022 8:16 AM Date of : 1950 Admit Type: Inpatient Age: 72 Gender: Male Attending MD: Andrea Sosa MD Procedure: Upper GI endoscopy Providers: Andrea Sosa MD Referring MD: Carlos Avalos Indications: Iron deficiency anemia secondary to chronic blood loss Medicines: See the Anesthesia note for documentation of the administered medications Complications: No immediate complications. Estimated Blood Loss: Estimated blood loss: none. Procedure: Pre-Anesthesia Assessment: - Prior to the procedure, a History and Physical was performed, and patient medications, allergies and sensitivities were reviewed. The patient's tolerance of previous anesthesia was reviewed. - The risks and benefits of the procedure and the sedation options and risks were discussed with the patient. All questions were answered and informed consent was obtained. - Patient identification and proposed procedure were verified prior to the procedure by the physician and the nurse. The procedure was verified in the pre-procedure area. - Pre-procedure physical examination revealed no contraindications to sedation. - After reviewing the risks and benefits, the patient was deemed in satisfactory condition to undergo the procedure. After obtaining informed consent, the endoscope was passed under direct vision. Throughout the procedure, the patient's blood pressure, pulse, and oxygen saturations were monitored continuously. The Endoscope was introduced through the mouth, and advanced to the third part of duodenum. The upper GI endoscopy was accomplished without difficulty. The patient tolerated the procedure well. Findings: Grade I varices were found in the mid esophagus. Moderate gastric antral vascular ectasia was present in the gastric antrum. The examined duodenum was normal. The cardia and gastric fundus were normal on retroflexion. Impression: - Grade I esophageal varices. - Gastric antral vascular ectasia. - Normal examined duodenum. - No specimens collected. Recommendation: - Return patient to [facility] for ongoing care. Andrea Sosa M.D. Andrea Sosa MD 08/21/2022 9:02:00 AM This report has been signed electronically. Note Initiated On: 08/21/2022 8:16 AM Number of Addenda: 0 I attest to the content of the Intraoperative Record and orders documented therein, exceptions below {[id number]}
[2022-08-21] MEDS: allopurinoL 100 MG TAB PO SCH ×2 (09:31→20:12)
[2022-08-21] MEDS: CITALOPRAM 20 MG TAB PO SCH (09:31)
[2022-08-21] MEDS: FERROUS SULFATE 325 MG TAB PO SCH ×2 (09:31→20:12)
[2022-08-21] MEDS: FUROSEMIDE 20 MG TAB PO SCH (09:31)
[2022-08-21] MEDS: FINASTERIDE 5 MG TAB PO SCH (09:31)
[2022-08-21] MEDS: rifAXIMin 550 MG TABLET PO SCH ×2 (09:32→20:11)
[2022-08-21] MEDS: SPIRONOLACTONE 25 MG TAB PO SCH (09:32)
[2022-08-21] MEDS: LANTUS PER UNIT CHARGE SQ SCH (10:08)
--- NOTE | 2022-08-21 14:44 | Hospitalist Progress Note ---
Date of Service August 21, 2022 Assessment & Plan (1) Anemia of chronic disease: (2) Acute lower GI bleeding: Plan: -Presented with bright red rectal bleed - Trending H&H every 6, hemoglobin here is 6.8, receiving PRBC x2 - Consult GI, Dr. Duncan on-call, Follows with Dr. Price - Protonix 40 mg IV BID started, given octreotide in the ER, will hold on further octreotide for now since BRBPR and seems to be lower. - Sigmoidoscopy done in April 2022: hemorrhoids with multiple angiectasia with bleeding noted on exam - reviewed via EPIC -Colonic bleeding is secondary to multiple angiectasia and radiation injury and will be very difficult to control -Colonic bleeding is also complicated by portal hypertension secondary to cirrhosis - Continue iron supplementation -No more bleeding as bowel is not moved yet -Appreciate GI input and recommendation for possible endoscopies in the morning -Will need periodic blood transfusion for rectal bleed -Has been started on clears orally (3) Pancytopenia: Plan: Remains pancytopenic with white count of 2.657, hemoglobin 8.1 and platelet count 73 Likely secondary to cirrhosis (4) Cirrhosis: (5) 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 -[place] [facility] [place]IPS [place] -Holding lactulose as above today, resume per day team -No metabolic encephalopathy on admission -LFTs with T bili equals 2.0, AST 47, alk phos 187, albumin is 2.9 -Continue Lasix and spironolactone with blood transfusions to avoid flash pulmonary edema/volume overload - Holding lactulose with acute GI bleed, continue Xifaxan - Meld score of 14 on admission -Status post EGD showed grade 1 esophageal varices, gastric antral vascular ectasia, normal examination of the duodenum and no specimen was collected (6) T2DM (type 2 diabetes mellitus): Plan: -Lantus reduced to 15 units daily down from 30 with current n.p.o. status -ISS with Accu-Cheks ACHS -Last A1c is 9.1 on 07/27 (7) CKD (chronic kidney disease) stage 3, GFR 30-59 ml/min: Plan: -History of such, follow BUN/creatinine, 37/1.47 on admission -Kidney function remains normal at 36/1.28 (8) Prostate cancer: Plan: Diagnosed in 2019, [place] 3+3 on Eligard s/p XRT DVT PPx: - teds, scds CODE: Full code Dispo: From [facility], likely to remain in the hospital x 1-2 days, CM to assist with discharge planning Admission and Anticipated Discharge Date Admission Date: August 19, 2022 Subjective 08/20/2022 The patient was seen and examined in telemetry unit He was admitted with bright red rectal bleed without any abdominal symptoms No history of hematemesis and or melena Has been feeling much better since admission 08/21/2022 The patient was seen and examined in telemetry unit he is status post EGD No acute source of bleeding Occasionally having rectal bleed but no colonoscopy is done today Review of Systems Review of Systems: All systems reviewed and are unremarkable except as noted below Physical Exam Physical Exam: Lying in bed comfortably Constitutional: well developed, well nourished, + ill appearing and + obese Eyes: PERRL, conjunctivae normal, anicteric sclerae ENMT: external ear and nose normal, oropharynx normal Neck: trachea midline, no thyromegaly Respiratory: no respiratory distress Auscultation: lungs clear to auscultation bilaterally Cardiovascular: Rate/Rhythm: regular rate and regular rhythm; not tachycardic Heart Sounds: normal S1 and normal S2; no murmur Extremities: + edema (Trace edema bilateral) Gastrointestinal (Abdomen): Inspection/Auscultation: normal bowel sounds; abdomen not distended Percussion/Palpation: abdomen soft; abdomen nontender Psychiatric: A+Ox3, euthymic affect Lymphatic: no cervical or axillary lymphadenopathy Results & Data Results & Data ([facility]) Vital Signs (Past 12 Hours) Vital Signs Temp Pulse Pulse Resp BP BP Pulse Ox 08/21/22 11:15 36.6 C 56 L 18 107/39 L 97 08/21/22 10:30 56 L 135/72 97 08/21/22 08:00 64 08/21/22 10:02 64 100 08/21/22 10:02 124/59 L 08/21/22 10:00 65 99 08/21/22 09:30 57 L 98 08/21/22 09:30 142/72 H 09/20/22 09:16 144/63 H 08/21/22 09:16 60 98 08/21/22 09:15 79 08/21/22 09:19 36.9 C 59 L 20 144/63 H 97 08/21/22 09:10 56 L 18 133/66 98 08/21/22 08:56 58 L 18 132/61 98 08/21/22 08:43 57 L 18 107/54 L 96 08/21/22 08:12 36.4 C L 67 16 163/77 H 97 08/21/22 03:05 36.9 C 60 18 132/69 97 O2 Del Method 08/21/22 11:15 Room Air 08/21/22 10:30 Room Air 08/21/22 08:00 08/21/22 10:02 Room Air 08/21/22 10:02 08/21/22 10:00 08/21/22 09:30 Room Air 08/21/22 09:30 08/21/22 09:16 08/21/22 09:16 Room Air 08/21/22 09:15 08/21/22 09:19 Room Air 08/21/22 09:10 Room Air 08/21/22 08:56 Room Air 08/21/22 08:43 Room Air 08/21/22 08:12 Room Air 08/21/22 03:05 Room Air Laboratory Results Short CBC 08/21/22 Range/Units 05:50 WBC 2.71 L (4.8-10.8) K/ul Hgb 8.2 L (14.0-18.0) g/dl Hct 24.1 L (40.1-51.0) % Plt Count 72 L (130-400) K/uL BMP 08/21/22 05:50 Sodium 140 Potassium 3.7 Chloride 112 H Carbon Dioxide 23 BUN 29 H Creatinine 1.44 H Glucose 84 Calcium 7.7 L Liver Function 08/21/22 Range/Units 05:50 Total Bilirubin 3.6 H (0.2-1.0) mg/dl AST 41 H (13-39) U/L ALT 6 L (7-52) U/L Alkaline Phosphatase 143 H (34-104) U/L Albumin 2.5 L (3.4-5.0) gm/dl Medications Administered Current Inpatient Medications Allopurinol (Allopurinol 100 Mg Tab) 100 mg PO BID JODI Stop: 09/18/22 20:59 Last Admin: 08/21/22 09:31 Dose: 100 mg Citalopram Hydrobromide (Citalopram 20 Mg Tab) 10 mg PO QAM [facility] Stop: 09/19/22 08:59 Last Admin: 08/21/22 09:31 Dose: 10 mg Dextrose (Dextrose 50% 50 Ml Syringe) 25 - 50 ml IV UD PRN; Protocol PRN Reason: Hypoglycemia Protocol Stop: 09/18/22 20:09 Ferrous Sulfate (Ferrous Sulfate 325 Mg Tab) 325 mg PO BID JODI Stop: 09/18/22 20:59 Last Admin: 08/21/22 09:31 Dose: 325 mg Finasteride (Finasteride 5 Mg Tab) 5 mg PO QAM [facility] Stop: 09/19/22 08:59 Last Admin: 08/21/22 09:31 Dose: 5 mg Furosemide (Furosemide 20 Mg Tab) 20 mg PO QAM JODI Stop: 09/19/22 08:59 Last Admin: 08/21/22 09:31 Dose: 20 mg Glucagon (Glucagon For Inj 1 Mg Vial) 1 mg SQ UD PRN; Protocol PRN Reason: Hypoglycemia Protocol Stop: 09/18/22 20:09 Glucose (Glucose 40% Gel 15 Gm Tube) 15 - 30 gm PO UD PRN; Protocol PRN Reason: Hypoglycemia Protocol Stop: 09/18/22 20:09 Glucose (Glucose 10 Tab/Tube) 4 - 8 tab PO UD PRN; Protocol PRN Reason: Hypoglycemia Treatment Stop: 09/18/22 20:09 Cefazolin Sodium (Ancef 2000mg) 2,000 mg in 15 mls @ 3.75 mls/min IV Q8H JODI Stop: 08/21/22 20:59 Last Admin: 08/21/22 12:20 Dose: 3.75 mls/min Insulin Aspart (Insulin Aspart Per Unit) 0 units SC ACHS JODI Stop: 09/18/22 20:09 Last Admin: 08/21/22 12:19 Dose: 3 units Insulin Glargine (Lantus Per Unit Charge) 15 units SQ DAILY JODI Stop: 09/19/22 08:59 Last Admin: 08/21/22 10:08 Dose: 15 units Mirtazapine (Mirtazapine Tab 15 Mg Tab) 30 mg PO HS JODI Stop: 09/18/22 20:59 Last Admin: 08/20/22 20:34 Dose: 30 mg Miscellaneous (Carbohydrates For Hypoglycemia ) 15 - 30 gm PO UD PRN PRN Reason: Hypoglycemia Protocol Stop: 09/18/22 20:09 Ondansetron HCl (Ondansetron Inj 2 Mg/Ml 2 Ml Vial) 4 mg IV Q4H PRN PRN Reason: Nausea And Vomiting Stop: 09/18/22 20:09 Pantoprazole Sodium (Pantoprazole 40 Mg Tab) 40 mg PO QAM [facility] Stop: 09/19/22 08:59 Rifaximin (Rifaximin 550 Mg Tablet) 550 mg PO BID [facility] Stop: 09/18/22 20:59 Last Admin: 08/21/22 09:32 Dose: 550 mg Spironolactone (Spironolactone 25 Mg Tab) 25 mg PO QAM [facility] Stop: 09/19/22 08:59 Last Admin: 08/21/22 09:32 Dose: 25 mg (1) Cirrhosis Ascites presence: without ascites Hepatic cirrhosis type: unspecified hepatic cirrhosis Qualified Code(s): K74.60 - Unspecified cirrhosis of liver
[2022-08-21] MEDS: MIRTAZAPINE TAB 15 MG TAB PO SCH (20:12)
[2022-08-22 06:16] LABS: Hematocrit (blood only) 25.2 % (40.1-51.0); Hemoglobin 8.6 g/dl (14.0-18.0); Mean Platelet Volume 10.5 fL (9.4-12.4); Platelet Count 75 K/uL (130-400); White Blood Count 2.65 K/ul (4.8-10.8)
[2022-08-22 06:41] LABS: BUN Creatinine Ratio 25.2 (10-20); Calcium 7.9 mg/dl (8.5-10.1); Creatinine Clr Calc Pharmacy 46.9 ml/min; Est GFR (African American) 54.5 ml/min; Potassium 3.9 mmol/L (3.5-5.1)
[2022-08-22 07:27] LABS: Basophils # (auto) 0.01 K/uL (0-0.2); Basophils % (auto) 0.4 %; Eosinophils % (auto) 7.5 %; Immature Granulocytes # (auto) 0.01 K/uL (0.00-0.02); Immature Granulocytes % (auto) 0.4 %; Lymphocytes # (auto) 0.74 K/uL (1.2-3.4); Lymphocytes % (auto) 27.9 %; Mean Corpuscular Hemoglobin 32.7 pg (25.0-34.0); Mean Corpuscular Hgb Conc 34.1 g/dL (32.0-36.0); Mean Corpuscular Volume 95.8 fL (80.0-100.0); Monocytes # (auto) 0.19 K/uL (0.24-0.82); Monocytes % (auto) 7.2 %; Neutrophils % (auto) 56.6 %; RDW Coefficient of Variation 18.4 % (11.5-14.5); RDW Standard Deviation 62.5 fL (36.4-46.3); Red Blood Count 2.63 M/uL (4.63-6.08)
[2022-08-22] MEDS: CITALOPRAM 20 MG TAB PO SCH (09:12)
[2022-08-22] MEDS: allopurinoL 100 MG TAB PO SCH (09:12)
[2022-08-22] MEDS: FERROUS SULFATE 325 MG TAB PO SCH (09:12)
[2022-08-22] MEDS: FUROSEMIDE 20 MG TAB PO SCH (09:13)
[2022-08-22] MEDS: SPIRONOLACTONE 25 MG TAB PO SCH (09:13)
[2022-08-22] MEDS: rifAXIMin 550 MG TABLET PO SCH (09:13)
[2022-08-22] MEDS: FINASTERIDE 5 MG TAB PO SCH (09:13)
[2022-08-22] MEDS: LANTUS PER UNIT CHARGE SQ SCH (09:18)
[2022-08-22] MEDS: INSULIN ASPART PER UNIT SC SCH ×2 (09:18→12:58)
[2022-08-22 10:48] VITALS: TEMP 98.1; O2SAT 95
--- NOTE | 2022-08-22 11:18 | Hospitalist Progress Note ---
Date of Service August 22, 2022 Assessment & Plan (1) Anemia of chronic disease: (2) Acute lower GI bleeding: Plan: -Presented with bright red rectal bleed - Trending H&H every 6, hemoglobin here is 6.8, receiving PRBC x2 - Consult GI, Dr. Duncan on-call, Follows with Dr. Price - Protonix 40 mg IV BID started, given octreotide in the ER, will hold on further octreotide for now since BRBPR and seems to be lower. - Sigmoidoscopy done in April 2022: hemorrhoids with multiple angiectasia with bleeding noted on exam - reviewed via EPIC -Colonic bleeding is secondary to multiple angiectasia and radiation injury and will be very difficult to control -Colonic bleeding is also complicated by portal hypertension secondary to cirrhosis - Continue iron supplementation -No more bleeding as bowel is not moved yet -Appreciate GI input and recommendation for possible endoscopies in the morning -Will need periodic blood transfusion for rectal bleed -Has been tolerating advance diet without any more evidence of rectal bleed -Remains asymptomatic and the patient will be transferred to [facility] this afternoon (3) Pancytopenia: Plan: Remains pancytopenic with white count of 2.657, hemoglobin 8.1 and platelet count 73 Likely secondary to cirrhosis (4) Cirrhosis: (5) 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 -On transplant list at [facility] [place], status post TIPS procedure -Holding lactulose as above today, resume per day team -No metabolic encephalopathy on admission -LFTs with T bili equals 2.0, AST 47, alk phos 187, albumin is 2.9 -Continue Lasix and spironolactone with blood transfusions to avoid flash pulmonary edema/volume overload - Holding lactulose with acute GI bleed, continue Xifaxan - Meld score of 14 on admission -Status post EGD showed grade 1 esophageal varices, gastric antral vascular ectasia, normal examination of the duodenum and no specimen was collected -Remains on the transplant list at [facility] (6) T2DM (type 2 diabetes mellitus): Plan: -Lantus reduced to 15 units daily down from 30 with current n.p.o. 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 DVT PPx: - teds, scds CODE: Full code Dispo: From [facility], likely to remain in the hospital x 1-2 days, CM to assist with discharge planning Discharge to [facility] this afternoon Admission and Anticipated Discharge Date Admission Date: August 19, 2022 Subjective 08/20/2022 The patient was seen and examined in telemetry unit He was admitted with bright red rectal bleed without any abdominal symptoms No history of hematemesis and or melena Has been feeling much better since admission 08/21/2022 The patient was seen and examined in telemetry unit he is status post EGD No acute source of bleeding Occasionally having rectal bleed but no colonoscopy is done today 08/22/2022 The patient was seen and examined in telemetry unit He has been feeling much better and did not have any more rectal bleed Denies any nausea or vomiting Denies any other significant symptoms Review of Systems Review of Systems: All systems reviewed and are unremarkable except as noted below Physical Exam Physical Exam: Lying in bed comfortably Constitutional: well developed, well nourished, + ill appearing and + obese Eyes: PERRL, conjunctivae normal, anicteric sclerae ENMT: external ear and nose normal, oropharynx normal Neck: trachea midline, no thyromegaly Respiratory: no respiratory distress Auscultation: lungs clear to auscultation bilaterally Cardiovascular: Rate/Rhythm: regular rate and regular rhythm; not tachycardic Heart Sounds: normal S1 and normal S2; no murmur Extremities: + edema (Trace edema bilateral) Gastrointestinal (Abdomen): Inspection/Auscultation: normal bowel sounds; abdomen not distended Percussion/Palpation: abdomen soft; abdomen nontender Musculoskeletal: No acute arthritis in any joint Neurologic: normal touch/pain/proprioception and moves all extremities; no focal motor deficits Psychiatric: A+Ox3, euthymic affect Lymphatic: no cervical or axillary lymphadenopathy Results & Data Results & [facility] ([facility]) Vital Signs (Past 12 Hours) Vital Signs Temp Pulse Pulse Resp BP Pulse Ox O2 Del Method 08/22/22 10:46 36.7 C 63 18 137/58 L 95 Room Air 08/22/22 07:58 36.2 C L 60 18 119/68 97 Room Air 08/22/22 03:20 36.5 C 63 18 132/70 95 Room Air 08/21/22 23:52 65 Laboratory Results Short CBC 08/22/22 Range/Units 05:57 WBC 2.65 L (4.8-10.8) K/ul Hgb 8.6 L (14.0-18.0) g/dl Hct 25.2 L (40.1-51.0) % Plt Count 75 L (130-400) K/uL BMP 08/22/22 05:57 Sodium 140 Potassium 3.9 Chloride 113 H Carbon Dioxide 21 BUN 37 H Creatinine 1.47 H Glucose 107 H Calcium 7.9 L Medications Administered Current Inpatient Medications Allopurinol (Allopurinol 100 Mg Tab) 100 mg PO BID JODI Stop: 09/18/22 20:59 Last Admin: 08/22/22 09:12 Dose: 100 mg Citalopram Hydrobromide (Citalopram 20 Mg Tab) 10 mg PO QAM [facility] Stop: 09/19/22 08:59 Last Admin: 08/22/22 09:12 Dose: 10 mg Dextrose (Dextrose 50% 50 Ml Syringe) 25 - 50 ml IV UD PRN; Protocol PRN Reason: Hypoglycemia Protocol Stop: 09/18/22 20:09 Ferrous Sulfate (Ferrous Sulfate 325 Mg Tab) 325 mg PO BID JODI Stop: 09/18/22 20:59 Last Admin: 08/22/22 09:12 Dose: 325 mg Finasteride (Finasteride 5 Mg Tab) 5 mg PO QAM [facility] Stop: 09/19/22 08:59 Last Admin: 08/22/22 09:13 Dose: 5 mg Furosemide (Furosemide 20 Mg Tab) 20 mg PO QAM [facility]ODI Stop: 09/19/22 08:59 Last Admin: 08/22/22 09:13 Dose: 20 mg Glucagon (Glucagon For Inj 1 Mg Vial) 1 mg SQ UD PRN; Protocol PRN Reason: Hypoglycemia Protocol Stop: 09/18/22 20:09 Glucose (Glucose 40% Gel 15 Gm Tube) 15 - 30 gm PO UD PRN; Protocol PRN Reason: Hypoglycemia Protocol Stop: 09/18/22 20:09 Glucose (Glucose 10 Tab/Tube) 4 - 8 tab PO UD PRN; Protocol PRN Reason: Hypoglycemia Treatment Stop: 09/18/22 20:09 Insulin Aspart (Insulin Aspart Per Unit) 0 units SC ACHS [facility]ODI Stop: 09/18/22 20:09 Last Admin: 08/22/22 09:18 Dose: 3 units Insulin Glargine (Lantus Per Unit Charge) 15 units SQ DAILY [facility] Stop: 09/19/22 08:59 Last Admin: 08/22/22 09:18 Dose: 15 units Mirtazapine (Mirtazapine Tab 15 Mg Tab) 30 mg PO HS [facility] Stop: 09/18/22 20:59 Last Admin: 08/21/22 20:12 Dose: 30 mg Miscellaneous (Carbohydrates For Hypoglycemia ) 15 - 30 gm PO UD PRN PRN Reason: Hypoglycemia Protocol Stop: 09/18/22 20:09 Ondansetron HCl (Ondansetron Inj 2 Mg/Ml 2 Ml Vial) 4 mg IV Q4H PRN PRN Reason: Nausea And Vomiting Stop: 09/18/22 20:09 Pantoprazole Sodium (Pantoprazole 40 Mg Tab) 40 mg PO QAM [facility] Stop: 09/19/22 08:59 Rifaximin (Rifaximin 550 Mg Tablet) 550 mg PO BID [facility] Stop: 09/18/22 20:59 Last Admin: 08/22/22 09:13 Dose: 550 mg Spironolactone (Spironolactone 25 Mg Tab) 25 mg PO QAM [facility] Stop: 09/19/22 08:59 Last Admin: 08/22/22 09:13 Dose: 25 mg (1) Cirrhosis Ascites presence: without ascites Hepatic cirrhosis type: unspecified hepatic cirrhosis Qualified Code(s): K74.60 - Unspecified cirrhosis of liver
[2022-08-22 14:29] VITALS: BP 107/39; PULSE 57
--- NOTE | 2022-08-23 07:14 | Discharge Summary ---
Date of Service August 22, 2022 Admission HPI Per Admitting Provider Chief Complaint: Rectal bleeding Primary Care Provider: Francisco Cisse MD This is a 72 yo M with PMhx of FOFANA cirrhosis s/p TIPS x 2, on liver transplant list, esophageal varices, anemia of chronic disease, DM II, GI bleeding, prostate carcinoma, GERD, CKD stage III. He reports rectal/GI bleeding since Dec 2021. He has had no bleeding at all within the past 2 days, and then this morning had significantly worse bleeding with dripping blood in toilet today and concern for significant bleeding with about 1 tablespoon of blood with clots, no dark tarry sticky stool, and reports significantly increased dizziness and lightheadedness today. He denies any chest pain or shortness of breath. Patient has recently had a sigmoidoscopy and follows with GI, Dr. Price, routinely. He denies any abdominal pain, nausea or vomiting. He has had infrequent abdominal paracentesis in the past. He has been taking all his medications routinely including his lactulose and Xifaxan and has routine bowel movements. In regards to his Lantus, he thinks that he takes about 30 to 32 units daily but is not sure since he has been at a facility where it is managed for him. He has been receiving insulin throughout the day based on a sliding scale. He was hospitalized at [facility] from 07/26-08/10 for hyperosmolar hyperglycemic state, uncontrolled DM type II and MSSA bacteremia with altered mental status likely acute metabolic encephalopathy due to decompensated cirrhosis. He was placed on IV Ancef 2 g every 8 hours for 14-day course started on 08/07, so today would have 2 more days to complete the course. Upon arrival to [facility] on the his hemoglobin was 8.4, on recheck at their facility yesterday he was 6.1, again today was 6.2, and therefore was sent over to the ER for needs for transfusion. Admission Exam Per Admitting Provider Review of Systems: Constitutional: No fever, sweats or chills, + lightheadedness and dizziness Eyes: No diplopia, no worsening or blurred vision ENT: normal hearing, no trouble swallowing Respiratory: No cough, sputum, dyspnea at rest or on exertion Cardiovascular: No chest pain, tightness or palpitations Abdomen: As per HPI, No pain, nausea, vomiting, diarrhea or constipation Musculoskeletal: No joint pain, calf pain, swelling Neurologic: + generalized weakness, no numbness/tingling, or balance problems Psychiatric: No anxiety or depression Skin: No rash or itch Principal Diagnosis Lower GI bleed likely secondary to multiple colonic angiectasia-stopped, status post 2 units of PRBC, no upper GI bleed with endoscopy, cirrhosis, type 2 diabetes, CKD Discharge Exam Lying in bed comfortably Constitutional well developed, well nourished, + ill appearing and + obese Eyes PERRL, conjunctivae normal, anicteric sclerae ENMT external ear and nose normal, oropharynx normal Neck trachea midline, no thyromegaly Respiratory no respiratory distress Auscultation: lungs clear to auscultation bilaterally Cardiovascular Rate/Rhythm: regular rate and regular rhythm; not tachycardic Heart Sounds: normal S1 and normal S2; no murmur Extremities: + edema (Trace edema bilateral) Gastrointestinal (Abdomen) Inspection/Auscultation: normal bowel sounds; abdomen not distended Percussion/Palpation: abdomen soft; abdomen nontender Neurologic normal touch/pain/proprioception and moves all extremities; no focal motor deficits Psychiatric A+Ox3, euthymic affect Lymphatic no cervical or axillary lymphadenopathy Discharge Data Allergies Allergy/AdvReac Type Severity Reaction Status Date / Time No Known Allergies Allergy Mild Verified 04/12/22 08:58 Consultations 08/19/22 14:28 ED Decision to Admit Stat 08/19/22 15:23 Consult Gastroenterology Routine Procedures Performed Operation Date: 08/21/22 16:00 Actual Procedures p Esophagogastroduodenoscopy - Andrea Sosa MD Hospital Course (1) Anemia of chronic disease: (2) Acute lower GI bleeding: -Presented with bright red rectal bleed - Trending H&H every 6, hemoglobin here is 6.8, receiving PRBC x2 - Consult GI, Dr. Duncan on-call, Follows with Dr. Price - Protonix 40 mg IV BID started, given octreotide in the ER, will hold on further octreotide for now since BRBPR and seems to be lower. - Sigmoidoscopy done in April 2022: hemorrhoids with multiple angiectasia with bleeding noted on exam - reviewed via EPIC -Colonic bleeding is secondary to multiple angiectasia and radiation injury and will be very difficult to control -Colonic bleeding is also complicated by portal hypertension secondary to cirrhosis - Continue iron supplementation -No more bleeding as bowel is not moved yet -Appreciate GI input and recommendation for possible endoscopies in the morning -Will need periodic blood transfusion for rectal bleed -Has been tolerating advance diet without any more evidence of rectal bleed -Remains asymptomatic and the patient will be transferred to [facility] this afternoon (3) Pancytopenia: Remains pancytopenic with white count of 2.657, hemoglobin 8.1 and platelet count 73 Likely secondary to cirrhosis (4) Cirrhosis: (5) 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 -On transplant list at [facility], status post TIPS procedure -Holding lactulose as above today, resume per day team -No metabolic encephalopathy on admission -LFTs with T bili equals 2.0, AST 47, alk phos 187, albumin is 2.9 -Continue Lasix and spironolactone with blood transfusions to avoid flash pulmonary edema/volume overload - Holding lactulose with acute GI bleed, continue Xifaxan - Meld score of 14 on admission -Status post EGD showed grade 1 esophageal varices, gastric antral vascular ectasia, normal examination of the duodenum and no specimen was collected -Remains on the transplant list at [facility] (6) T2DM (type 2 diabetes mellitus): -Lantus reduced to 15 units daily down from 30 with current n.p.o. status -ISS with Accu-Cheks ACHS -Last A1c is 9.1 on 07/27 -The patient has been inquiring about Trulicity as the treatment for diabetes -He was advised to follow-up with his primary care physician following discharge from the [facility] to discuss about it (7) CKD (chronic kidney disease) stage 3, GFR 30-59 ml/min: -History of such, follow BUN/creatinine, 37/1.47 on admission -Kidney function remains normal at 36/1.28 (8) Prostate cancer: Diagnosed in 2019, [place] 3+3 on Eligard s/p XRT Was advised to give appointment with client delivery manager DVT PPx: - teds, scds CODE: Full code Dispo: From [facility], likely to remain in the hospital x 1-2 days, CM to assist with discharge planning Discharge to [facility] this afternoon Total Time Total Time Spent Total Time Spent (In Minutes): 35 MINUTES Discharge Plan Discharge Items Patient Disposition: Transfer Inpatient Rehab Fac Reason For Visit: ABNORMAL LABS, RECTAL BLEED Discharge Diagnosis: Lower GI bleed likely secondary to multiple colonic angiectasia-stopped, status post 2 units of PRBC, no upper GI bleed with endoscopy, cirrhosis, type 2 diabetes, CKD Condition on Discharge: Fair Activity: Resume your previous activity Non-emergency contact: Primary Care Provider Call non-emergency contact if: you have any medication questions and your symptoms worsen Follow-up/Referrals: Francisco Cisse MD [Primary Care Provider] - (Please make an appointment with your primary care physician within 7 days following discharge from the facility) Diet: Carb Consistent or DM2 Fluids: 1500ml (6 cups) Addtl Attending Provider Instructions: Please take precautions to avoid falls Take your medications as advised Please keep appointments with your healthcare providers Cefazolin has been discontinued from the home medications as he was not getting it in the hospital Pending Studies at Discharge: No Stand-Alone Forms: My [facility] Skilled Items Patient informed of condition?: Yes DNR: No Discharge Level of Care: Acute rehab Communicable Disease: No Discharge Prognosis: Stable Lines: None Urinary Catheter: No Medications and DC Order Prescriptions: Continued citalopram [Celexa] 10 mg tablet 10 mg PO QAM omeprazole 40 mg capsule,delayed release(DR/EC) 40 mg PO QAM lactulose 10 gram/15 mL solution See Rx Instructions .ROUTE .COMPLEX PRN (Reason: Constipation) Rx Instructions: 1 tablespoon daily per pt PRN; allopurinol 100 mg Tablet 100 mg PO BID Xifaxan 550 mg tablet 550 mg PO BID Label Comments: Part of the "FOFANA" regimen to remove impurities mirtazapine 30 mg tablet 30 mg PO HS spironolactone 25 mg tablet 25 mg PO QAM furosemide 20 mg tablet 20 mg PO QAM insulin aspart U-100 [Novolog U-100 Insulin aspart] 100 unit/mL Solution 1 unit SC UD 30 Days Qty: 0.3 0RF Rx Instructions: per Sliding Scale on Discharge Instructions insulin glargine [Lantus U-100 Insulin] 100 unit/mL Solution 30 unit subcut DAILY 30 Days Qty: 9 2RF ferrous sulfate 325 mg (65 mg iron) tablet 325 mg PO BID Qty: 60 0RF finasteride 5 mg Tablet 5 mg PO QAM Discontinued cefazolin 2 gram recon soln 2 g IV Q8H 11 Days Qty: 33 0RF Discharge Orders: Discharge Order (Routine); Ordered 08/22/22 Ordered By: Carlos Avalos Admission Data Admit Date/Time: 08/19/22 15:23 Attending Provider: Carlos Avalos Admit Provider: Julissa Hawthorne Primary Care Provider: Francisco Cisse Other Providers: David Duncan ; Julissa Hawthorne ; [facility] Other Interventions: Discharge Summary Assessment (RN) Last Done: 08/22/22 14:25
== END 2022-08-22 15:40 | DRG 378 ==
LOC: ED 12:28 → SUATTDRO 15:23 → 2E 15:23

== ENCOUNTER 2022-08-27 09:16 | Inpatient (IN) ==
[2022-08-27] MEDS ORDERED: SODIUM CHLORIDE 0.9% 250 ML IV PRN (09:26)
--- NOTE | 2022-08-27 09:47 | Emergency Department Note ---
Impression & Plan Acute hepatic encephalopathy, GI (gastrointestinal bleed), Anemia, Elevated bilirubin ED Provider Note NAME: MERRITT TAPIA AGE: 72 SEX: M : 1950 ARRIVES VIA: Ambulance INFORMANT: Patient ED PROVIDER(S): Erich Pineda DO CHIEF COMPLAINT: confusion w/ elevated ammonia and dropping hgb HPI: Patient is a 72-year-old male with a past medical history of FOFANA that presents to the ER for worsening confusion. He has been refusing to take his lactulose for the past 24 to 48 hours. His ammonia has been elevated at 127 today. His hemoglobin trended down from 8.7-6.7. He had a scope previously and a TIPS. He denies any belly pain, chest pain, or headache. Previous scopes showed multiple colonic angiectasias consistent with radiation proctocolitis. No other exacerbating or remitting factors. ROS: See above HPI for pertinent positives & negatives. A total of 10 systems reviewed and were otherwise negative. PAST MEDICAL HISTORY:See Below PAST SURGICAL HISTORY:See Below FAMILY HISTORY:See Below SOCIAL HISTORY:See Below HOME MEDICATIONS:See Below ALLERGIES:See Below VITALS:See Below PHYSICAL EXAMINATION: GENERAL: Sitting up in bed, alert, medically ill-appearing, disheveled EYE EXAM: normal conjunctiva. OROPHARYNX: no exudate, no erythema, lips, buccal mucosa, and tongue normal and mucous membranes are moist NECK: supple, no nuchal rigidity, no adenopathy, non-tender LUNGS: Clear to auscultation. Normal chest wall mechanics HEART: no murmurs, S1 normal and S2 normal RECTAL: Heme positive bright red blood ABDOMEN: abdomen soft, non-tender, normo-active bowel sounds, no masses, no rebound or guarding. UPPER EXTREMITIES: upper extremities are grossly normal. LOWER EXTREMITIES: No pitting edema. NEURO EXAM: Normal sensorium, cranial nerves II-XII grossly intact, normal speech, no gross weakness of arms, no gross weakness of legs. MEDICAL DECISION MAKING: Patient is a 72-year-old male who presents to the ER for worsening confusion with an elevated ammonia level. IV was established blood work was obtained. Labs show leukopenia at 3.7. Worsening anemia at 7.6. Platelets were low at 97 fairly consistent with previous. BMP is unremarkable. Bili at 3.6. LFTs was unremarkable. Ammonia elevated at 109. UA was unremarkable. COVID-negative. CT head was unremarkable. Patient was given IV fluids. He was updated bedside. Discussed with hospitalist for further evaluation. Patient was typed and crossed but not transfused while he was in the ER as he was nonhypertensive and hemoglobin was 7.6. Triage Nursing notes reviewed. Limited review of prior medical records performed Vital Signs: reviewed and remarkable for HTN Differential diagnosis: Differential diagnoses includes but is not limited to toxic, metabolic, infectious, traumatic, cardiac, neurologic, hematologic, psychiatric and inflammatory etiologies. ER treatment provided: See below Diagnostics interpreted by me: ECG: Sinus rhythm rate 64 Normal axis No PVCs QTC 489 Cardiac Monitoring: An order was placed for continuous cardiac monitoring. The monitor shows a rate of 70 with sinus rhythm. Laboratory studies: As stated above and show below. Imaging studies: CT head was negative Consultation(s): Discussed with hospitalist for further evaluation S Critical Care: None Past Med/Surg History Medical History (Updated 08/27/22 @ 15:09 by Erich Pineda DO) Anemia Anemia of chronic disease 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 CKD (chronic kidney disease) stage 3, GFR 30-59 ml/min DVT prophylaxis Esophageal varices Esophageal varices GAVE (gastric antral vascular ectasia) GERD (gastroesophageal reflux disease) Gout NO ISSUES CURRENTLY History of panic attacks Hyperosmolar hyperglycemic state (HHS) Hypertension Prostate cancer (11/10/20) Psoriasis Rectal bleeding Shortness of breath Upper GI bleed Surgical History (Updated 08/27/22 @ 10:20 by Brianna Herndon PA-C) History of abdominal paracentesis multiple History of colonoscopy with polypectomy History of esophagogastroduodenoscopy (EGD) last 10/25 revealed grade 2 esophageal varices, grade 1 gastric varices STABLE History of prostate biopsy malignant History of tonsillectomy and adenoidectomy S/P TIPS (transjugular intrahepatic portosystemic shunt) Family History Father , "3/4 liver gone due to drinking" Colorectal cancer, Onset Age: 63 Mother Lung cancer Daughter Cancer cervical and thyroid cancers Ovarian cancer Other No family history of adverse response to anesthesia 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 Smoking Status: Never smoker Second Hand Exposure: No; Hx Alcohol Use: No Hx Substance Use: No Preferred Language: [place] Communication Ability: Effective Visual Impairment: No Limitations Hearing Ability: Normal Inventory Control Analyst Required: No Beliefs That Will Affect Care: None marital status: Current Living Situation: Rehab Current Living Situation Comment: pt at [facility] 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 How many Children do You have: 6 How many Children do You have Comment: one , eldest daughter in her sleep from seizure disorder Feels Safe at Home: Yes Childhood Exposure to Second-Hand Smoke: Yes Diet Comment: "I watch my sugar, average fasting is 140 mg/dl" caffeine: Yes (cola, sugar free, decaf) during the past year weight has: remained stable Dental Care, Regularly: No Physical Activity Frequency: Does not Exercise Seatbelt Use: always Sunscreen Use: Yes Assistive Devices: Walker Allergies Allergies Allergy/AdvReac Type Severity Reaction Status Date / Time No Known Allergies Allergy Mild Verified 04/12/22 08:58 Home Meds Home Medications Medication Instructions Recorded Confirmed citalopram 10 mg tablet (Celexa) 10 mg PO QAM 03/24/20 08/27/22 allopurinol 100 mg tablet 100 mg PO BID 05/16/20 08/27/22 rifaximin 550 mg tablet (Xifaxan) 550 mg PO BID 12/08/20 08/27/22 finasteride 5 mg tablet 5 mg PO QAM 11/03/21 08/27/22 lactulose 10 gram/15 mL oral 30 ml PO BID 03/13/22 08/27/22 solution furosemide 20 mg tablet 20 mg PO QAM 07/26/22 08/27/22 mirtazapine 30 mg tablet 30 mg PO HS 07/26/22 08/27/22 spironolactone 25 mg tablet 25 mg PO QAM 07/26/22 08/27/22 docusate sodium 100 mg tablet 100 mg PO BID 08/27/22 08/27/22 insulin glargine 100 unit/mL 15 unit subcut DAILY 08/27/22 08/27/22 subcutaneous solution (Lantus U-100 Insulin) pantoprazole 40 mg tablet,delayed 40 mg PO DAILY 08/27/22 08/27/22 release Previous Rx's Medication Instructions Recorded ferrous sulfate 325 mg (65 mg 325 mg PO BID #60 tabs 08/10/22 iron) tablet insulin aspart U-100 100 unit/mL 1 unit (0.01 mL) SC UD 30 days 08/10/22 subcutaneous solution (Novolog #0.3 mL U-100 Insulin aspart) Results & Data (ED) Vital Signs Vital Signs - 24 hr 08/27/22 09:25 08/27/22 09:42 08/27/22 09:12 Temperature 36.6 C Temperature Source Oral Pulse Rate 65 64 Pulse Rate [Radial] 64 Pulse Rhythm Regular Regular Pulse Rhythm [Radial] Regular Pulse Strength Normal Pulse Strength [Radial] Normal Respiratory Rate 16 16 16 Respiratory Effort / Characteristics Non-Labored Spontaneous Non-Labored Spontaneous Respiratory Depth Normal Normal Respiratory Pattern Regular Regular Blood Pressure 141/67 H Blood Pressure [Left Arm] 167/74 H Blood Pressure Mean 91 Blood Pressure Mean [Left Arm] 105 Blood Pressure Position Lying Blood Pressure Position [Left Arm] Lying Pulse Oximetry 100 100 98 Oxygen Delivery Method Room Air Room Air Room Air Sepsis Recent Fever Within 48 Hours No Sepsis New/Unexplained Change in Mental Status Yes Sepsis Action Taken by Nursing No Action Required Laboratory Data Result diagrams: 08/27/22 09:32 08/27/22 09:32 Lab Results 08/27/22 08/27/22 08/27/22 Range/Units 09:32 09:32 09:32 WBC 3.71 L (4.8-10.8) K/ul RBC 2.26 L (4.63-6.08) M/uL Hgb 7.6 L (14.0-18.0) g/dl Hct 22.9 L (40.1-51.0) % MCV 101.3 H (80.0-100.0) fL MCH 33.6 (25.0-34.0) pg MCHC 33.2 (32.0-36.0) g/dL RDW Std Deviation 70.1 H (36.4-46.3) fL RDW Coeff of Violetta 19.6 H (11.5-14.5) % Plt Count 97 L (130-400) K/uL MPV 11.1 (9.4-12.4) fL Immature Gran % (Auto) 0.5 % Neut % (Auto) 60.2 % Lymph % (Auto) 25.1 % Mccone % (Auto) 7.0 % Eos % (Auto) 6.7 % Baso % (Auto) 0.5 % Neut # (Auto) 2.23 (1.4-6.5) K/uL Lymph # (Auto) 0.93 L (1.2-3.4) K/uL Mccone # (Auto) 0.26 (0.24-0.82) K/uL Eos # (Auto) 0.25 (0-0.50) K/uL Baso # (Auto) 0.02 (0-0.2) K/uL Immature Gran # (Auto) 0.02 (0.00-0.02) K/uL Absolute Nucleated RBC 0.02 H (0-0) K/uL Nucleated RBC % (auto) 0.5 % Polychromasia 1+ Anisocytosis Present Tear Drop Cells 1+ Sodium 144 (136-145) mmol/L Potassium 3.9 (3.5-5.1) mmol/L Chloride 113 H (98-107) mmol/L Carbon Dioxide 23 (21-32) mmol/L Anion Gap 8 (3-11) BUN 36 H (6-23) mg/dl Creatinine 1.43 H (0.6-1.4) mg/dl Est Cr Clr Drug Dosing Not Reportable Est GFR ( Amer) 56.3 ml/min Est GFR (Non-Af Amer) 48.6 ml/min BUN/Creatinine Ratio 25.2 H (10-20) Glucose 156 H (70-99(Fasting)) mg/dl Calcium 8.7 (8.5-10.1) mg/dl Total Bilirubin 3.6 H (0.2-1.0) mg/dl AST 44 H (13-39) U/L ALT 18 (7-52) U/L Alkaline Phosphatase 179 H (34-104) U/L Ammonia (18-72) umol/L Total Protein 6.5 (6.0-8.3) gm/dl Albumin 3.0 L (3.4-5.0) gm/dl Globulin 3.5 (2.5-4.0) gm/dl Albumin/Globulin Ratio 0.9 (0.9-2) Lipase 28 (11-82) U/L Urine Color Urine Appearance (Clear) Urine pH (4.5-7.5) Ur Specific [place] (1.000-1.030) Urine Protein (Negative) Urine Glucose (UA) (Negative) Urine Ketones (Negative) Urine Blood (Negative) Urine Nitrite (Negative) Urine Bilirubin (Negative) Urine Urobilinogen (Negative) Ur Leukocyte Esterase (Negative) Urine WBC (Auto) (0-5) /hpf Urine RBC (Auto) (0-4) /hpf U Hyaline Cast (Auto) (0-5) /lpf U Epithel Cells (Auto) (0-5) /lpf Urine Bacteria (Auto) (Negative) SARS-CoV-2, RNA, NAAT (NEGATIVE) Blood Type O Positive Antibody Screen NEGATIVE Crossmatch See Detail 08/27/22 08/27/22 08/27/22 Range/Units 09:32 09:32 09:55 WBC (4.8-10.8) K/ul RBC (4.63-6.08) M/uL Hgb (14.0-18.0) g/dl Hct (40.1-51.0) % MCV (80.0-100.0) fL MCH (25.0-34.0) pg MCHC (32.0-36.0) g/dL RDW Std Deviation (36.4-46.3) fL RDW Coeff of Violetta (11.5-14.5) % Plt Count (130-400) K/uL MPV (9.4-12.4) fL Immature Gran % (Auto) % Neut % (Auto) % Lymph % (Auto) % Mccone % (Auto) % Eos % (Auto) % Baso % (Auto) % Neut # (Auto) (1.4-6.5) K/uL Lymph # (Auto) (1.2-3.4) K/uL Mccone # (Auto) (0.24-0.82) K/uL Eos # (Auto) (0-0.50) K/uL Baso # (Auto) (0-0.2) K/uL Immature Gran # (Auto) (0.00-0.02) K/uL Absolute Nucleated RBC (0-0) K/uL Nucleated RBC % (auto) % Polychromasia Anisocytosis Tear Drop Cells Sodium (136-145) mmol/L Potassium (3.5-5.1) mmol/L Chloride (98-107) mmol/L Carbon Dioxide (21-32) mmol/L Anion Gap (3-11) BUN (6-23) mg/dl Creatinine (0.6-1.4) mg/dl Est Cr Clr Drug Dosing Est GFR ( Amer) ml/min Est GFR (Non-Af Amer) ml/min BUN/Creatinine Ratio (10-20) Glucose (70-99(Fasting)) mg/dl Calcium (8.5-10.1) mg/dl Total Bilirubin (0.2-1.0) mg/dl AST (13-39) U/L ALT (7-52) U/L Alkaline Phosphatase (34-104) U/L Ammonia 109.0 H (18-72) umol/L Total Protein (6.0-8.3) gm/dl Albumin (3.4-5.0) gm/dl Globulin (2.5-4.0) gm/dl Albumin/Globulin Ratio (0.9-2) Lipase (11-82) U/L Urine Color Red Urine Appearance Cloudy A (Clear) Urine pH 5.0 (4.5-7.5) Ur Specific [place] 1.012 (1.000-1.030) Urine Protein Trace H (Negative) Urine Glucose (UA) Negative (Negative) Urine Ketones Negative (Negative) Urine Blood 3+ H (Negative) Urine Nitrite Negative (Negative) Urine Bilirubin Negative (Negative) Urine Urobilinogen Negative (Negative) Ur Leukocyte Esterase Trace H (Negative) Urine WBC (Auto) 1-5 (0-5) /hpf Urine RBC (Auto) >30 H (0-4) /hpf U Hyaline Cast (Auto) 1-5 (0-5) /lpf U Epithel Cells (Auto) 20-30 H (0-5) /lpf Urine Bacteria (Auto) Negative (Negative) SARS-CoV-2, RNA, NAAT NEGATIVE (NEGATIVE) Blood Type Antibody Screen Crossmatch Discharge Plan Visit Data Chief Complaint: Abnormal Labs/Diagnostic Testing Stated Complaint: ABNORMAL LAB, CONFUSION ED Provider: Erich Pineda Discharge Problem: Acute hepatic encephalopathy, GI (gastrointestinal bleed), Anemia, Elevated bilirubin Patient Disposition: Admitted As Inpatient Discharge Instructions Interventions: ED Discharge Assessment Last Done: 08/27/22 13:19
[2022-08-27 09:49] LABS: Basophils # (auto) 0.02 K/uL (0-0.2); Basophils % (auto) 0.5 %; Eosinophils # (auto) 0.25 K/uL (0-0.50); Eosinophils % (auto) 6.7 %; Hematocrit (blood only) 22.9 % (40.1-51.0); Hemoglobin 7.6 g/dl (14.0-18.0); Immature Granulocytes # (auto) 0.02 K/uL (0.00-0.02); Immature Granulocytes % (auto) 0.5 %; Lymphocytes # (auto) 0.93 K/uL (1.2-3.4); Lymphocytes % (auto) 25.1 %; Mean Platelet Volume 11.1 fL (9.4-12.4); Monocytes # (auto) 0.26 K/uL (0.24-0.82); Neutrophils # (auto) 2.23 K/uL (1.4-6.5); Neutrophils % (auto) 60.2 %; Platelet Count 97 K/uL (130-400); White Blood Count 3.71 K/ul (4.8-10.8)
--- NOTE | 2022-08-27 10:15 | History & Physical Report ---
Date of Service August 27, 2022 Assessment & Plan (1) Hepatic encephalopathy: Plan: Worsening confusion over the last few days with elevated ammonia level. Initial sign out that pt was refusing to take Lactulose as prescribed but upon further investigation, staff at [facility] report that pt has not been missing doses yet remains more confused. 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 Grimm. Plan of care discussed and as outlined above. 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 History from the patient is unobtainable due to confusion so history obtained from review of the medical records and by speaking with the staff at [facility], specifically his nurse Ira. She notes that pt has had gradually worsening confusion over the last few days. NH4 level from last came back on Saturday at 127 so Lactulose increased to BID. Pt has been taking this as prescribed. This morning his Hgb came back at 6.7, had been 8.7 on last check. Pt has ongoing rectal bleeding and hematuria but no worse than usual. He has been more lethargic, not following commands, confused, not eating. Due to drop in H&H as well as confusion, pt was referred to the ED for evaluation. Urine culture done last apparently showed no growth. Pt has not been complaining of significant pain. No fevers, vomiting or diarrhea per nursing report. Blood sugar yesterday in the 270s. Fasting sugar this AM was 156 - given Lantus but did not eat breakfast so he was not given the Novolog. Of note, pt was admitted to this facility 07/26-08/10 for hyperosmolar hyperglycemic state, uncontrolled DM2, MSSA bacteremia, and acute metabolic encephalopathy due to decompensated cirrhosis. He was discharged to [facility] on 08.10 but returned to the ED on 08/19 due to increased rectal bleeding and worsening anemia. Pt was transfused two units and underwent EGD without evidence of active upper GI bleed. He also finished his course of IV Ancef for the bacteremia. He was transferred back to [facility] on 08/23. Allergies Allergy/AdvReac Type Severity Reaction Status Date / Time No Known Allergies Allergy Mild Verified 04/12/22 08:58 Home Medications Medication Instructions Recorded Confirmed Type citalopram 10 mg tablet (Celexa) 10 mg PO QAM 03/24/20 08/27/22 History allopurinol 100 mg tablet 100 mg PO BID 05/16/20 08/27/22 History rifaximin 550 mg tablet (Xifaxan) 550 mg PO BID 12/08/20 08/27/22 History finasteride 5 mg tablet 5 mg PO QAM 11/03/21 08/27/22 History lactulose 10 gram/15 mL oral 30 ml PO BID 03/13/22 08/27/22 History solution furosemide 20 mg tablet 20 mg PO QAM 07/26/22 08/27/22 History mirtazapine 30 mg tablet 30 mg PO HS 07/26/22 08/27/22 History spironolactone 25 mg tablet 25 mg PO QAM 07/26/22 08/27/22 History ferrous sulfate 325 mg (65 mg 325 mg PO BID #60 tabs 08/10/22 08/27/22 Rx iron) tablet insulin aspart U-100 100 unit/mL 1 unit (0.01 mL) SC UD 30 days 08/10/22 08/27/22 Rx subcutaneous solution (Novolog #0.3 mL U-100 Insulin aspart) docusate sodium 100 mg tablet 100 mg PO BID 08/27/22 08/27/22 History insulin glargine 100 unit/mL 15 unit subcut DAILY 08/27/22 08/27/22 History subcutaneous solution (Lantus U-100 Insulin) pantoprazole 40 mg tablet,delayed 40 mg PO DAILY 08/27/22 08/27/22 History release Past Med/Surg History Medical History (Updated 08/27/22 @ 11:30 by Brianna Herndon PA-C) Anemia Anemia of chronic disease 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 CKD (chronic kidney disease) stage 3, GFR 30-59 ml/min DVT prophylaxis Esophageal varices Esophageal varices GAVE (gastric antral vascular ectasia) GERD (gastroesophageal reflux disease) Gout NO ISSUES CURRENTLY History of panic attacks Hyperosmolar hyperglycemic state (HHS) Hypertension Prostate cancer (11/10/20) Psoriasis Rectal bleeding Shortness of breath Upper GI bleed Surgical History (Updated 08/27/22 @ 10:20 by Brianna Herndon PA-C) History of abdominal paracentesis multiple History of colonoscopy with polypectomy History of esophagogastroduodenoscopy (EGD) last 10/25 revealed grade 2 esophageal varices, grade 1 gastric varices STABLE History of prostate biopsy malignant History of tonsillectomy and adenoidectomy S/P TIPS (transjugular intrahepatic portosystemic shunt) Family History Father , "3/4 liver gone due to drinking" Colorectal cancer, Onset Age: 63 Mother Lung cancer Daughter Cancer cervical and thyroid cancers Ovarian cancer Other No family history of adverse response to anesthesia 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 Smoking Status: Never smoker Second Hand Exposure: No; Hx Alcohol Use: No Hx Substance Use: No Preferred Language: [place] Communication Ability: Effective Visual Impairment: No Limitations Hearing Ability: Normal Musical Instrument 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 Required: No Beliefs That Will Affect Care: None marital status: Current Living Situation: Rehab Current Living Situation Comment: pt at [facility] for rehab 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 How many Children do You have: 6 How many Children do You have Comment: one , eldest daughter in her sleep from seizure disorder Feels Safe at Home: Yes Childhood Exposure to Second-Hand Smoke: Yes Diet Comment: "I watch my sugar, average fasting is 140 mg/dl" caffeine: Yes (cola, sugar free, decaf) during the past year weight has: remained stable Dental Care, Regularly: No Physical Activity Frequency: Does not Exercise Seatbelt Use: always Sunscreen Use: Yes Assistive Devices: Walker Review of Systems Review of Systems: Unobtainable due to cognitive status (confusion and lethargy) Physical Exam Constitutional: + altered mental status (confused); no acute distress Eyes: + scleral abnormality (icterus) ENMT: external ear and nose normal, oropharynx normal Neck: trachea midline Respiratory: no respiratory distress and no labored breathing Auscultation: lungs clear to auscultation bilaterally; no rhonchi and no wheezes Cardiovascular: Rate/Rhythm: regular rate and regular rhythm Vessels: dorsalis pedis pulses present and radial pulses present Extremities: no pedal edema Gastrointestinal (Abdomen): Inspection/Auscultation: normal bowel sounds; abdomen not distended Percussion/Palpation: abdomen soft; abdomen nontender Musculoskeletal: Head/Neck/Chest: normocephalic, head atraumatic and neck supple Skin: + rash (scattered mildly erythematous plaques on upper extremities, trunk) and + jaundice Neurologic: moves all extremities and + confused Psychiatric: Orientation: oriented to person; + not oriented to place and + not oriented to time Results & Data Results & Data ([facility]) Vital Signs (Past 12 Hours) Vital Signs Temp Pulse Resp BP Pulse Ox O2 Del Method 08/27/22 09:42 64 16 100 Room Air 08/27/22 09:25 36.6 C 65 16 141/67 H 100 Room Air Laboratory Results Laboratory Results - last 24 hr 08/27/22 08/27/22 08/27/22 09:32 09:32 09:32 WBC 3.71 L RBC 2.26 L Hgb 7.6 L Hct 22.9 L MCV 101.3 H MCH 33.6 MCHC 33.2 RDW Std Deviation 70.1 H RDW Coeff of [place] 19.6 H Plt Count 97 L MPV 11.1 Immature Gran % (Auto) 0.5 Neut % (Auto) 60.2 Lymph % (Auto) 25.1 [place] % (Auto) 7.0 Eos % (Auto) 6.7 Baso % (Auto) 0.5 Neut # (Auto) 2.23 Lymph # (Auto) 0.93 L [place] # (Auto) 0.26 Eos # (Auto) 0.25 Baso # (Auto) 0.02 Immature Gran # (Auto) 0.02 Absolute Nucleated RBC 0.02 H Nucleated RBC % (auto) 0.5 Polychromasia 1+ Anisocytosis Present Tear Drop Cells 1+ Sodium 144 Potassium 3.9 Chloride 113 H Carbon Dioxide 23 Anion Gap 8 BUN 36 H Creatinine 1.43 H Est Cr Clr Drug Dosing Not Reportable Est GFR ( Amer) 56.3 Est GFR (Non-Af Amer) 48.6 BUN/Creatinine Ratio 25.2 H Glucose 156 H Calcium 8.7 Total Bilirubin 3.6 H AST 44 H ALT 18 Alkaline Phosphatase 179 H Ammonia Total Protein 6.5 Albumin 3.0 L Globulin 3.5 Albumin/Globulin Ratio 0.9 Lipase 28 Urine Color Urine Appearance Urine pH Ur Specific [place] Urine Protein Urine Glucose (UA) Urine Ketones Urine Blood Urine Nitrite Urine Bilirubin Urine Urobilinogen Ur Leukocyte Esterase SARS-CoV-2, RNA, NAAT Blood Type Pending Antibody Screen Pending Crossmatch See Detail 08/27/22 08/27/22 08/27/22 09:32 09:32 09:55 WBC RBC Hgb Hct MCV MCH MCHC RDW Std Deviation RDW Coeff of [place] Plt Count MPV Immature Gran % (Auto) Neut % (Auto) Lymph % (Auto) [place] % (Auto) Eos % (Auto) Baso % (Auto) Neut # (Auto) Lymph # (Auto) [place] # (Auto) Eos # (Auto) Baso # (Auto) Immature Gran # (Auto) Absolute Nucleated RBC Nucleated RBC % (auto) Polychromasia Anisocytosis Tear Drop Cells Sodium Potassium Chloride Carbon Dioxide Anion Gap BUN Creatinine Est Cr Clr Drug Dosing Est GFR ( Amer) Est GFR (Non-Af Amer) BUN/Creatinine Ratio Glucose Calcium Total Bilirubin AST ALT Alkaline Phosphatase Ammonia 109.0 H Total Protein Albumin Globulin Albumin/Globulin Ratio Lipase Urine Color Pending Urine Appearance Pending Urine pH Pending Ur Specific [place] Pending Urine Protein Pending Urine Glucose (UA) Pending Urine Ketones Pending Urine Blood Pending Urine Nitrite Pending Urine Bilirubin Pending Urine Urobilinogen Pending Ur Leukocyte Esterase Pending SARS-CoV-2, RNA, NAAT Pending Blood Type Antibody Screen Crossmatch Supervising Physician Co-Signing Physician Notes Pt was seen and examined. Agreed with Brianna ARCEO exam, assessment and plan. 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 History obtained from staff at [facility], medical records and ER document due to pt confusion. Pt confusion has been getting worst. He had lab done this morning with hgb 6.7. Lab in the ER showed ammonia level [address] head showed no acute intracranial hemorrhage or mass effect. White matter hypodensities.Nonspecific pontine hypodensity which can also be assessed on MRI. Liver u/s showed Small-volume abdominopelvic ascites. Encephalopathy might be due to elevate ammonia level. Will give Lactulose ME TID. Consider to get a brain MRI once mental status improves due to the nonspecific hypodense finding seen on CT head. Continue monitor H/H and if hgb drops below 7, will transfuse PRBC. Continue PPI Gastro on board . Blood cx and urine cx collected in the ER. Will hold on antibiotic for now. Will check procalcitonin. Continue monitor closely. MD Alfa (1) GERD (gastroesophageal reflux disease) Esophagitis presence: esophagitis presence not specified Qualified Code(s): K21.9 - Gastro-esophageal reflux disease without esophagitis
[2022-08-27 10:16] LABS: Anisocytosis Present; Mean Corpuscular Hemoglobin 33.6 pg (25.0-34.0); Mean Corpuscular Hgb Conc 33.2 g/dL (32.0-36.0); Mean Corpuscular Volume 101.3 fL (80.0-100.0); Nucleated RBC # (auto) 0.02 K/uL (0-0); Nucleated RBC % (auto) 0.5 %; Polychromasia 1+; RDW Coefficient of Variation 19.6 % (11.5-14.5); RDW Standard Deviation 70.1 fL (36.4-46.3); Red Blood Count 2.26 M/uL (4.63-6.08); Tear Drop Cells 1+
[2022-08-27 10:17] LABS: Alanine Aminotransferase 18 U/L (7-52); Albumin Globulin Ratio 0.9 (0.9-2); Alkaline Phosphatase 179 U/L (34-104); Anion Gap 8 (3-11); Aspartate Aminotransferase 44 U/L (13-39); BUN Creatinine Ratio 25.2 (10-20); Bilirubin,Total 3.6 mg/dl (0.2-1.0); Blood Urea Nitrogen 36 mg/dl (6-23); Calcium 8.7 mg/dl (8.5-10.1); Carbon Dioxide 23 mmol/L (21-32); Chloride 113 mmol/L (98-107); Est GFR (African American) 56.3 ml/min; Est GFR (Non-African American) 48.6 ml/min; Globulin 3.5 gm/dl (2.5-4.0); Glucose 156 mg/dl (70-99(Fasting)); Lipase 28 U/L (11-82); Potassium 3.9 mmol/L (3.5-5.1); Sodium 144 mmol/L (136-145); Total Protein 6.5 gm/dl (6.0-8.3)
[2022-08-27 10:23] LABS: Appearance Urine Cloudy (Clear); Bacteria Urine Automated Negative (Negative); Bilirubin Urine Negative (Negative); Blood Urine 3+ (Negative); Color Urine Red; Epithelial Cell Urine Auto 20-30 /lpf (0-5); Glucose Urine UA Negative (Negative); Ketones Urine Negative (Negative); Leukocyte Esterase Urine Trace (Negative); Nitrite Urine Negative (Negative); Protein Urine Trace (Negative); RBC Urine Automated >30 /hpf (0-4); Specific Gravity Urine 1.012 (1.000-1.030); Urobilinogen Urine Negative (Negative)
--- NOTE | 2022-08-27 10:44 | Gastrointestinal Consultation ---
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 Hx of radiation proctitis w BRBPR though no yannikc rectal bleeding at this time per RN report. He has been refusing his lactulose in the last 1-2 days. Ammonia level is elevated Last EGD 08/21/22 - Grade I varices, GAVE Last sigmoidscopy 04/2022 - APC of radiation proctitis, hemorrhoids - Monitor blood ct and transfuse prn - Lactulose enema TID - Head CT - Urine and blood ct, CXR to r/o infectious etiology of HE - Check Zinc, FA, B12 levels - Monitor for rectal bleeding, if present will consider repeat sigmoidscopy and APC of angioectasia related to radiation proctitis Supervising Physician Co-Signing Physician Notes Patient was seen and examined on 08/27 with JEFF Hernandez whose note reflects our findings and plan. History of Present Illness Reason for Consultation: Confusion Requesting Physician: Malika Herndon PA-C Attending Physician: Dr. Barbara March History of Present Illness Pt is a 72 yo male w PMHx of FOFANA cirrhosis s/p TIPS, on [facility] liver transplant list, DM II, anemia, BRBRP 2/2 radiation proctitis, hx of prostate CA, GERD, CKD, who presented to ED from [facility] rehab after noted to have blood ct of 6.7 in outpt labs. Repeat CBC here showed H/H of 7.6/. Pt also noted to be confused, w high ammonia level. He had been refusing to take his Lactulose in the past 24-48hrs. Last admitted at [facility] in end of July for hyperosmolar hyperglycemic state, uncontrolled DM2, MSSA bacteremia, and acute metabolic encephalopathy due to decompensated cirrhosis. DC'd to [facility] on 08/10 but read mitted on 08/19 for increased rectal bleeding and worsening anemia, treated with PRBC transfusion, EGD eval on 08/21 showed grade I varices, GAVE. Last sigmoidscopy 04/2022 w APC of radiation proctitis. Allergies Allergy/AdvReac Type Severity Reaction Status Date / Time No Known Allergies Allergy Mild Verified 04/12/22 08:58 Home Medications Medication Instructions Recorded Confirmed Type citalopram 10 mg tablet (Celexa) 10 mg PO QAM 03/24/20 08/27/22 History allopurinol 100 mg tablet 100 mg PO BID 05/16/20 08/27/22 History rifaximin 550 mg tablet (Xifaxan) 550 mg PO BID 12/08/20 08/27/22 History finasteride 5 mg tablet 5 mg PO QAM 11/03/21 08/27/22 History lactulose 10 gram/15 mL oral 30 ml PO BID 03/13/22 08/27/22 History solution furosemide 20 mg tablet 20 mg PO QAM 07/26/22 08/27/22 History mirtazapine 30 mg tablet 30 mg PO HS 07/26/22 08/27/22 History spironolactone 25 mg tablet 25 mg PO QAM 07/26/22 08/27/22 History ferrous sulfate 325 mg (65 mg 325 mg PO BID #60 tabs 08/10/22 08/27/22 Rx iron) tablet insulin aspart U-100 100 unit/mL 1 unit (0.01 mL) SC UD 30 days 08/10/22 08/27/22 Rx subcutaneous solution (Novolog #0.3 mL U-100 Insulin aspart) docusate sodium 100 mg tablet 100 mg PO BID 08/27/22 08/27/22 History insulin glargine 100 unit/mL 15 unit subcut DAILY 08/27/22 08/27/22 History subcutaneous solution (Lantus U-100 Insulin) pantoprazole 40 mg tablet,delayed 40 mg PO DAILY 08/27/22 08/27/22 History release Patient History Medical History (Updated 08/27/22 @ 15:09 by Erich Pineda DO) Anemia Anemia of chronic disease 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 CKD (chronic kidney disease) stage 3, GFR 30-59 ml/min DVT prophylaxis Esophageal varices Esophageal varices GAVE (gastric antral vascular ectasia) GERD (gastroesophageal reflux disease) Gout NO ISSUES CURRENTLY History of panic attacks Hyperosmolar hyperglycemic state (HHS) Hypertension Prostate cancer (11/10/20) Psoriasis Rectal bleeding Shortness of breath Upper GI bleed Surgical History (Updated 08/27/22 @ 10:20 by Brianna Herndon PA-C) History of abdominal paracentesis multiple History of colonoscopy with polypectomy History of esophagogastroduodenoscopy (EGD) last 10/25 revealed grade 2 esophageal varices, grade 1 gastric varices STABLE History of prostate biopsy malignant History of tonsillectomy and adenoidectomy S/P TIPS (transjugular intrahepatic portosystemic shunt) Family History Father , "3/4 liver gone due to drinking" Colorectal cancer, Onset Age: 63 Mother Lung cancer Daughter Cancer cervical and thyroid cancers Ovarian cancer Other No family history of adverse response to anesthesia 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 Smoking Status: Never smoker Second Hand Exposure: No; Hx Alcohol Use: No Hx Substance Use: No Preferred Language: [place] Communication Ability: Effective Visual Impairment: No Limitations Hearing Ability: Normal Mailhouse Operator Required: No Beliefs That Will Affect Care: None marital status: Current Living Situation: Rehab Current Living Situation Comment: pt at [facility] for rehab 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 How many Children do You have: 6 How many Children do You have Comment: one , eldest daughter in her sleep from seizure disorder Feels Safe at Home: Yes Childhood Exposure to Second-Hand Smoke: Yes Diet Comment: "I watch my sugar, average fasting is 140 mg/dl" caffeine: Yes (cola, sugar free, decaf) during the past year weight has: remained stable Dental Care, Regularly: No Physical Activity Frequency: Does not Exercise Seatbelt Use: always Sunscreen Use: Yes Assistive Devices: Walker Review of Systems Constitutional: Unable to obtain ROS, pt is confused, able to tell me name, answers mostly "yes/no". Denies pain currently Physical Exam Constitutional: Alert, confused, oriented to self only Eyes: PERRL, conjunctivae normal, anicteric sclerae ENMT: external ear and nose normal, oropharynx normal Respiratory: normal respiratory effort, lungs clear to auscultation Cardiovascular: RRR, no murmur, no edema Gastrointestinal (Abdomen): normal bowel sounds, soft, nontender, no hepatosplenomegaly Skin: no rashes, warm and dry no jaundice Lymphatic: no lymphedema Results & Data ([facility]) Vital Signs (Past 12 Hours) Vital Signs Temp Pulse Resp BP Pulse Ox O2 Del Method 08/27/22 09:42 64 16 100 Room Air 08/27/22 09:25 36.6 C 65 16 141/67 H 100 Room Air
--- NOTE | 2022-08-27 11:15 | CT Scan Report ---
CT OF THE HEAD WITHOUT CONTRAST CLINICAL HISTORY: confusion COMPARISON STUDY: Head CT August 02, 2022. MRI of the brain August 03, 2022. CT DOSE: 1381.76 mGy.cm TECHNIQUE: Helical axial images of the head were obtained without IV contrast. Automated exposure con trol was utilized for the study. A dose lowering technique was utilized adhering to the principles o f ALARA. FINDINGS: No acute intracranial hemorrhage, midline shift or mass effect is present. The ventricular system is unremarkable. The basal cisterns are patent. No extra-axial collections are present. There are no findings to suggest acute dural sinus thrombosis or acute territorial infarct. No significant calvarial abnormalities are present. Left maxillary sinus mucosal thickening is improved. There is hy podensity within the james on axial image 13 of 36. In addition, there are scattered white matter hypo densities. These appear increased when compared to head CT of August 02, 2022. IMPRESSION: 1. No acute intracranial hemorrhage or mass effect. 2. White matter hypodensities. These may reflect small vessel disease however appear increased since head CT of August 02, 2022 and are therefore indeterminate. An MRI of the brain could be obtained for further evaluation. 3. Nonspecific pontine hypodensity which can also be assessed on MRI. ACT 112: Negative or not required by law. Electronically signed by: Elan Alexander M.D. 08/27/2022 11:13 AM
--- NOTE | 2022-08-27 11:58 | Ultrasound Report ---
ULTRASOUND ASCITES CHECK CLINICAL HISTORY: Abdominal ascites. COMPARISON STUDY: Ultrasound ascites check dated 08/02/2022. FINDINGS: Real-time camarena scale sonography of all 4 quadrants of the abdomen is performed to assess fo r abdominal ascites. There is a small volume of abdominopelvic ascites. The largest pocket of fluid i s seen in the right upper quadrant. The liver is cirrhotic in morphology. IMPRESSION: Small-volume abdominopelvic ascites. Electronically signed by: Scott Yepez M.D. 08/27/2022 11:57 AM
[2022-08-27 12:24] LABS: Folate (Folic Acid) 9.11 ng/ml (>5.38)
[2022-08-27] MEDS ORDERED: GLUCOSE 10 TAB/TUBE PO PRN (13:35)
[2022-08-27] MEDS ORDERED: GLUCOSE 40% GEL 15 GM TUBE PO PRN (13:35)
[2022-08-27] MEDS ORDERED: GLUCAGON FOR INJ 1 MG VIAL SQ PRN (13:35)
[2022-08-27] MEDS ORDERED: DEXTROSE 50% 50 ML SYRINGE IV PRN (13:35)
[2022-08-27] MEDS ORDERED: CARBOHYDRATES FOR HYPOGLYCEMIA PO PRN (13:35)
--- NOTE | 2022-08-27 15:28 | XRay Report ---
XR chest 2V PA/lateral CLINICAL HISTORY: r/o infection TECHNIQUE: 2 views of the chest were obtained. Comparison: Comparison is made to chest radiograph 08/02/2022 FINDINGS: Exam is limited by underpenetration. Cardiomegaly is noted. Prominence and cephalization of the vascu lature is seen. No evidence of pleural effusion or pneumothorax. IMPRESSION: Mild pulmonary edema. No evidence of pneumonia. ACT 112: Negative or not required by law. Electronically signed by: Arik Flowers M.D. 08/27/2022 3:27 PM
[2022-08-27] MEDS: LACTULOSE 200GM/700ML WTR ENEMA PR SCH ×2 (15:29→22:38)
[2022-08-27] MEDS ORDERED: LACTULOSE 200GM/700ML WTR ENEMA PR ONE (16:01)
[2022-08-27] MEDS: INSULIN ASPART PER UNIT SC SCH ×2 (17:00→20:39)
[2022-08-27] MEDS ORDERED: PNEUMOCOCCAL Polysaccharide Vaccine 25mcg/0.5mL vial/Syr IM ONE (19:30)
[2022-08-27 20:42] LABS: Hematocrit (blood only) 21.7 % (40.1-51.0); Hemoglobin 7.2 g/dl (14.0-18.0)
[2022-08-27 21:03] LABS: INR 1.2 (0.9-1.1); Prothrombin Time 12.4 Seconds (9.0-12.0)
[2022-08-27] MEDS: PANTOprazole 40 MG in SYRINGE 0 ML IV SCH (21:29)
[2022-08-27] MEDS: LANTUS PER UNIT CHARGE SQ SCH (21:29)
--- NOTE | 2022-08-28 05:50 | Electrocardiogram Report ---
Test Reason : Blood Pressure : / mmHG Vent. Rate : 064 BPM Atrial Rate : 064 BPM P-R Int : 174 ms QRS Dur : 092 ms QT Int : 536 ms P-R-T Axes : 057 012 076 degrees QTc Int : 554 ms Normal sinus rhythm Nonspecific ST and T wave abnormality Prolonged QT Abnormal ECG When compared with ECG of 19-AUG-2022 12:36, Nonspecific T wave abnormality now evident in Inferior leads Confirmed by Benjamin Giles ([id number]) on 08/28/2022 5:50:10 AM Referred By: REFERRED SELF Confirmed By:Benjamin Giles
[2022-08-28] MEDS: LACTULOSE 200GM/700ML WTR ENEMA PR SCH (06:34)
[2022-08-28 07:13] LABS: Basophils # (auto) 0.02 K/uL (0-0.2); Basophils % (auto) 0.5 %; Eosinophils # (auto) 0.21 K/uL (0-0.50); Eosinophils % (auto) 5.8 %; Hematocrit (blood only) 21.1 % (40.1-51.0); Hemoglobin 7.2 g/dl (14.0-18.0); Immature Granulocytes # (auto) 0.02 K/uL (0.00-0.02); Immature Granulocytes % (auto) 0.5 %; Lymphocytes # (auto) 0.86 K/uL (1.2-3.4); Lymphocytes % (auto) 23.6 %; Mean Platelet Volume 10.6 fL (9.4-12.4); Monocytes # (auto) 0.28 K/uL (0.24-0.82); Monocytes % (auto) 7.7 %; Neutrophils # (auto) 2.25 K/uL (1.4-6.5); Neutrophils % (auto) 61.9 %; Platelet Count 89 K/uL (130-400); White Blood Count 3.64 K/ul (4.8-10.8)
[2022-08-28 07:40] LABS: Anisocytosis Present; Mean Corpuscular Hgb Conc 34.1 g/dL (32.0-36.0); Mean Corpuscular Volume 99.5 fL (80.0-100.0); Polychromasia 1+; RDW Coefficient of Variation 19.9 % (11.5-14.5); RDW Standard Deviation 70.4 fL (36.4-46.3); Red Blood Count 2.12 M/uL (4.63-6.08); Tear Drop Cells 1+
[2022-08-28 08:06] LABS: Albumin Globulin Ratio 0.9 (0.9-2); Albumin Level 2.7 gm/dl (3.4-5.0); Bilirubin,Total 3.9 mg/dl (0.2-1.0); Calcium 8.1 mg/dl (8.5-10.1); Globulin 2.9 gm/dl (2.5-4.0); Potassium 3.9 mmol/L (3.5-5.1); Total Protein 5.6 gm/dl (6.0-8.3)
[2022-08-28] MEDS: INSULIN ASPART PER UNIT SC SCH ×4 (08:42→21:43)
[2022-08-28 09:01] LABS: BUN Creatinine Ratio 22.8 (10-20); Creatinine Clr Calc Pharmacy 43.9 ml/min; Est GFR (African American) 49.9 ml/min; Est GFR (Non-African American) 43.1 ml/min
[2022-08-28] MEDS: rifAXIMin 550 MG TABLET PO SCH ×2 (09:15→21:44)
[2022-08-28] MEDS: LACTULOSE SYRUP 20 GM/30 ML UDC PO SCH ×3 (09:15→21:44)
[2022-08-28] MEDS: PANTOprazole 40 MG in SYRINGE 0 ML IV SCH ×2 (09:15→21:44)
--- NOTE | 2022-08-28 09:48 | Gastroenterology Progress Note ---
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 Hx of radiation proctitis w BRBPR though no yannick rectal bleeding at this time per RN report. He has been refusing his lactulose in the last 1-2 days. Ammonia level is elevated Last EGD 08/21/22 - Grade I varices, GAVE Last sigmoidscopy 04/2022 - APC of radiation proctitis, hemorrhoids - Monitor blood ct and transfuse prn - Lactulose 20g PO TID; add Xifaxan 550mg BID - Head CT -> increased small vessel disease, consider MRI brain - Urine and blood ct pending, CXR normal. - FA, B12 normal. F/U Zinc level - Monitor for rectal bleeding, if present and decrease in blood ct, will consider repeat sigmoidscopy and APC of angioectasia related to radiation proctitis. Otherwise will defer endoscopy at this time. Admission and Anticipated Discharge Date Admission Date: August 27, 2022 Supervising Physician Co-Signing Physician Notes Patient was seen and examined with JEFF Hernandez whose note reflects our findings and plan. Important that patient gets his lactulose. Xifaxan BID as well. infectious work up is pending. Subjective Pt alert, still confused, but less agitated then yesterday. Able to answer more questions. Denies abd pain, n/v. Per RN report he had stools w clots overnight but no BM this AM yet. Hgb stable at 7 Review of Systems Review of Systems: All systems reviewed & are unremarkable except as noted in HPI & below Physical Exam Eyes: PERRL, conjunctivae normal, anicteric sclerae ENMT: external ear and nose normal, oropharynx normal Respiratory: normal respiratory effort, lungs clear to auscultation Cardiovascular: RRR, no murmur, no edema Gastrointestinal (Abdomen): normal bowel sounds, soft, nontender, no hepatosplenomegaly Skin: no rashes, warm and dry no jaundice Neurologic: No asterixis. Confused. Lymphatic: no lymphedema Results & Data ([facility]) Vital Signs (Past 12 Hours) Vital Signs Temp Pulse Pulse Resp BP Pulse Ox O2 Del Method 08/28/22 07:52 71 08/28/22 07:52 Room Air 08/28/22 07:10 37.4 C 69 17 118/51 L 97 Room Air 08/28/22 02:50 36.8 C 71 12 109/48 L 100 Room Air 08/28/22 00:00 73 08/27/22 23:29 37.0 C 68 18 112/57 L 99 Room Air
[2022-08-28] MEDS: LANTUS PER UNIT CHARGE SQ SCH ×2 (11:41→21:42)
--- NOTE | 2022-08-28 14:52 | Hospitalist Progress Note ---
Date of Service August 28, 2022 Assessment & Plan (1) Hepatic encephalopathy: Plan: Per admitting service notes with attempted Worsening confusion over the last few days with elevated ammonia level. Initial sign out that pt was refusing to take Lactulose as prescribed but upon further investigation, staff at [facility] report that pt has not been missing doses yet remains more confused. - Admit to PCU - Lactulose enemas until less confused and can safely take po - Consult GI - appreciate recommendations - Head CT pending - Check urine and blood cultures to eval for infection 08/28 Patient's neuro status started to improve Ammonia still in the 100s CT head: 2. White matter hypodensities. These may reflect small vessel disease however appear increased since head CT of August 02, 2022 and are therefore indeterminate. An MRI of the brain could be obtained for further evaluation. 3. Nonspecific pontine hypodensity which can also be assessed on MRI. Lactulose enema transition to p.o. 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 (4) Pancytopenia: (5) T2DM (type 2 diabetes mellitus): Plan: Insulin-requiring - last A1c on 07/27 was 9.1 - Continue Lantus for basal, insulin sliding scale - Accucheck Q6 hrs while NPO (6) Prostate cancer: (7) CKD (chronic kidney disease) stage 3, GFR 30-59 ml/min: (8) GERD (gastroesophageal reflux disease): Plan DVT Prophylaxis: SCDs in view of anemia, chronic blood loss Code Status: Full code Disposition Anticipate discharge to [facility] medically stable Admission and Anticipated Discharge Date Admission Date: August 27, 2022 Subjective Follow-up for hepatic encephalopathy, etc. Seen sitting up in bed, sleeping but easily awakened Answers most questions appropriately although somewhat slow to respond States he feels okay overall Abdominal pain, nausea vomiting no fevers or chills No other symptom No rectal bleeding per RN Adam Review of Systems Review of Systems: all noted and negative except for above Physical Exam Physical Exam: General- oriented x 2, not in distress, speaks in sentences with no effort or accessory muscle use Head- atraumatic Eyes- PERRL, EOMI, anicteric ENT- oropharynx clear Neck- supple, no JVD, no adenopathy, no thyromegaly; carotids +2/2, no bruits appreciated Lungs- clear to auscultation bilaterally, no rales/wheezes Heart- normal rate, regular rhythm; no murmur, no gallop, no rub appreciated Abdomen- normal bowel sounds, nondistended, soft, nontender, no masses or hepatosplenomegaly Extremities- no pretibial edema, no calf tenderness; peripheral pulses intact Neuro- alert, oriented x 3; CN 2-12 grossly intact; motor 5/5 bilaterally;sensation 100% on all extremities; no other gross focal neurologic deficits Skin- warm & dry Results & Data Results & Data ([facility]) Vital Signs (Past 12 Hours) Vital Signs Temp Pulse Pulse Resp BP Pulse Ox O2 Del Method 08/28/22 11:26 37.0 C 70 18 128/69 99 Room Air 08/28/22 07:52 71 08/28/22 07:52 Room Air 08/28/22 07:10 37.4 C 69 17 118/51 L 97 Room Air 08/28/22 02:50 36.8 C 71 12 109/48 L 100 Room Air all noted and reviewed including below (1) GERD (gastroesophageal reflux disease) Esophagitis presence: esophagitis presence not specified Qualified Code(s): K21.9 - Gastro-esophageal reflux disease without esophagitis
[2022-08-29 06:24] LABS: Basophils # (auto) 0.01 K/uL (0-0.2); Basophils % (auto) 0.3 %; Eosinophils # (auto) 0.21 K/uL (0-0.50); Hematocrit (blood only) 21.4 % (40.1-51.0); Immature Granulocytes # (auto) 0.01 K/uL (0.00-0.02); Immature Granulocytes % (auto) 0.3 %; Lymphocytes % (auto) 26.5 %; Mean Platelet Volume 10.6 fL (9.4-12.4); Monocytes # (auto) 0.24 K/uL (0.24-0.82); Monocytes % (auto) 7.9 %; Neutrophils # (auto) 1.75 K/uL (1.4-6.5); Platelet Count 95 K/uL (130-400); White Blood Count 3.02 K/ul (4.8-10.8)
[2022-08-29 06:36] LABS: Albumin Level 2.7 gm/dl (3.4-5.0); BUN Creatinine Ratio 21.7 (10-20); Bilirubin,Total 4.1 mg/dl (0.2-1.0); Calcium 7.8 mg/dl (8.5-10.1); Creatinine Clr Calc Pharmacy 43.5 ml/min; Est GFR (African American) 48.8 ml/min; Est GFR (Non-African American) 42.1 ml/min; Globulin 2.8 gm/dl (2.5-4.0); Potassium 3.7 mmol/L (3.5-5.1); Total Protein 5.5 gm/dl (6.0-8.3)
[2022-08-29 06:54] LABS: Mean Corpuscular Hgb Conc 32.7 g/dL (32.0-36.0); Mean Corpuscular Volume 100.9 fL (80.0-100.0); RDW Coefficient of Variation 19.4 % (11.5-14.5); RDW Standard Deviation 69.8 fL (36.4-46.3); Red Blood Count 2.12 M/uL (4.63-6.08); Tear Drop Cells 1+
[2022-08-29] MEDS: INSULIN ASPART PER UNIT SC SCH ×4 (08:17→20:36)
[2022-08-29] MEDS: LANTUS PER UNIT CHARGE SQ SCH ×2 (08:18→20:40)
[2022-08-29] MEDS: LACTULOSE SYRUP 20 GM/30 ML UDC PO SCH ×3 (08:21→20:40)
[2022-08-29] MEDS: PANTOprazole 40 MG in SYRINGE 0 ML IV SCH ×2 (08:22→20:40)
[2022-08-29] MEDS: rifAXIMin 550 MG TABLET PO SCH ×2 (08:22→20:41)
--- NOTE | 2022-08-29 09:42 | Gastroenterology Progress Note ---
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 Hx of radiation proctitis w BRBPR though no yannick rectal bleeding at this time per RN report. He has been refusing his lactulose in the last 1-2 days. Ammonia level is elevated Last EGD 08/21/22 - Grade I varices, GAVE Last sigmoidscopy 04/2022 - APC of radiation proctitis, hemorrhoids Improving mental status, infectious workup negative. Blood ct stable for few days now w/o any bloody more blood in stools since 08/27 - Advance diet at tolerated - Monitor blood ct and transfuse prn - Lactulose 20g PO TID; Xifaxan 550mg BID - Head CT -> increased small vessel disease, consider MRI brain - FA, B12 normal. F/U Zinc level - Defer repeat colonoscopy at this time, can re-eval in outpt setting for repeat if needed - Recall GI prn Admission and Anticipated Discharge Date Admission Date: August 27, 2022 Supervising Physician Co-Signing Physician Notes I have seen and examined the patient with JEFF Hernandez whose note reflects our findings and plan Subjective Pt was asleep, easily awakened. He is oriented mostly to self, place "hospital". He denies any abd pain, n/v. RN reports last bloody BM noted was 08/27 Review of Systems Review of Systems: All systems reviewed & are unremarkable except as noted in HPI & below Physical Exam Constitutional: WD/WN, vitals as above Eyes: PERRL, conjunctivae normal, anicteric sclerae ENMT: external ear and nose normal, oropharynx normal Respiratory: normal respiratory effort, lungs clear to auscultation Cardiovascular: RRR, no murmur, no edema Gastrointestinal (Abdomen): normal bowel sounds, soft, nontender, no hepatosplenomegaly Skin: no rashes, warm and dry no jaundice Neurologic: Alert, oriented to self and place Lymphatic: no lymphedema Results & Data ([facility]) Vital Signs (Past 12 Hours) Vital Signs Temp Pulse Pulse Resp BP BP Pulse Ox 08/29/22 07:00 36.8 C 66 17 121/63 98 08/29/22 03:47 37.2 C 65 16 150/60 H 99 08/28/22 23:00 72 08/28/22 23:00 36.8 C 68 18 127/70 99 O2 Del Method 08/29/22 07:00 Room Air 08/29/22 03:47 Room Air 08/28/22 23:00 08/28/22 23:00 Room Air
[2022-08-29] MEDS: allopurinoL 100 MG TAB PO SCH ×2 (11:12→20:42)
[2022-08-29] MEDS: CITALOPRAM 20 MG TAB PO SCH (11:13)
[2022-08-29] MEDS: FERROUS SULFATE 325 MG TAB PO SCH ×2 (11:14→20:42)
[2022-08-29] MEDS: FINASTERIDE 5 MG TAB PO SCH (11:39)
--- NOTE | 2022-08-29 15:46 | Hospitalist Progress Note ---
Date of Service August 29, 2022 Assessment & Plan (1) Hepatic encephalopathy: Plan: Per admitting service notes with attempted Worsening confusion over the last few days with elevated ammonia level. Initial sign out that pt was refusing to take Lactulose as prescribed but upon further investigation, staff at [facility] report that pt has not been missing doses yet remains more confused. - Admit to PCU - Lactulose enemas until less confused and can safely take po - Consult GI - appreciate recommendations - Head CT pending - Check urine and blood cultures to eval for infection 08/29 Patient's mental status gradually improving CT head: 2. White matter hypodensities. These may reflect small vessel disease however appear increased since head CT of August 02, 2022 and are therefore indeterminate. An MRI of the brain could be obtained for further evaluation. 3. Nonspecific pontine hypodensity which can also be assessed on MRI. Lactulose enema transitioned to p.o. 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 (4) Pancytopenia: (5) T2DM (type 2 diabetes mellitus): Plan: Insulin-requiring - last A1c on 07/27 was 9.1 - Continue Lantus for basal, insulin sliding scale (6) Prostate cancer: (7) CKD (chronic kidney disease) stage 3, GFR 30-59 ml/min: (8) GERD (gastroesophageal reflux disease): Plan DVT Prophylaxis: SCDs in view of anemia, chronic blood loss Code Status: Full code Disposition Anticipate discharge to [facility] medically stable Admission and Anticipated Discharge Date Admission Date: August 27, 2022 Subjective Follow-up for acute hepatic encephalopathy, etc. Seen resting in bed, comfortable, not distressed Awake and alert, answers most questions appropriately, but occasionally gets confused Easily redirected Denies abdominal pain, nausea vomiting, fevers chills No melena/hematochezia per patient's RN Had mild hematuria this morning No other symptoms Review of Systems Review of Systems: all noted and negative except for above Physical Exam Physical Exam: General- oriented x 1-2, not in distress, speaks in sentences with no effort or accessory muscle use Eyes- anicteric Neck- no JVD Lungs- clear BS bilaterally, no rales/wheezes Heart- normal rate, regular rhythm; no murmurs Abdomen- normal bowel sounds, nondistended, soft, no tenderness Extremities- no pretibial edema, no calf tenderness Neuro- alert, oriented x 2; no gross focal neurologic deficits Skin- warm & dry Results & Data Results [facility] Vital Signs (Past 12 Hours) Vital Signs Temp Pulse Pulse Resp BP BP Pulse Ox 08/29/22 15:27 36.5 C 65 17 96/47 L 99 08/29/22 11:55 36.6 C 65 20 114/51 L 99 08/29/22 06:15 64 08/29/22 07:00 36.8 C 66 17 121/63 98 08/29/22 03:47 37.2 C 65 16 150/60 H 99 O2 Del Method 08/29/22 15:27 Room Air 08/29/22 11:55 Room Air 08/29/22 06:15 08/29/22 07:00 Room Air 08/29/22 03:47 Room Air all noted and reviewed including below (1) GERD (gastroesophageal reflux disease) Esophagitis presence: esophagitis presence not specified Qualified Code(s): K21.9 - Gastro-esophageal reflux disease without esophagitis
[2022-08-29] MEDS: MIRTAZAPINE TAB 15 MG TAB PO SCH (20:41)
[2022-08-30 02:41] LABS: Zinc 55 mcg/dL (60-130)
[2022-08-30 08:12] LABS: Hematocrit (blood only) 19.5 % (40.1-51.0); Hemoglobin 6.6 g/dl (14.0-18.0); Mean Corpuscular Hgb Conc 33.8 g/dL (32.0-36.0); Mean Corpuscular Volume 100.5 fL (80.0-100.0); Mean Platelet Volume 10.4 fL (9.4-12.4); Platelet Count 89 K/uL (130-400); RDW Coefficient of Variation 19.7 % (11.5-14.5); RDW Standard Deviation 70.1 fL (36.4-46.3); Red Blood Count 1.94 M/uL (4.63-6.08); White Blood Count 2.72 K/ul (4.8-10.8)
[2022-08-30] MEDS: INSULIN ASPART PER UNIT SC SCH ×4 (08:23→21:59)
[2022-08-30] MEDS: LANTUS PER UNIT CHARGE SQ SCH ×2 (08:23→21:59)
[2022-08-30 08:27] LABS: Albumin Globulin Ratio 0.9 (0.9-2); Albumin Level 2.6 gm/dl (3.4-5.0); BUN Creatinine Ratio 20.1 (10-20); Bilirubin,Total 3.9 mg/dl (0.2-1.0); Calcium 7.9 mg/dl (8.5-10.1); Creatinine Clr Calc Pharmacy 43.5 ml/min; Est GFR (African American) 49.5 ml/min; Est GFR (Non-African American) 42.7 ml/min; Globulin 2.8 gm/dl (2.5-4.0); Potassium 3.6 mmol/L (3.5-5.1); Total Protein 5.4 gm/dl (6.0-8.3)
[2022-08-30 08:28] LABS: Basophils # (auto) 0.01 K/uL (0-0.2); Basophils % (auto) 0.4 %; Eosinophils # (auto) 0.28 K/uL (0-0.50); Eosinophils % (auto) 10.3 %; Immature Granulocytes # (auto) 0.01 K/uL (0.00-0.02); Immature Granulocytes % (auto) 0.4 %; Lymphocytes # (auto) 0.77 K/uL (1.2-3.4); Lymphocytes % (auto) 28.3 %; Monocytes # (auto) 0.24 K/uL (0.24-0.82); Monocytes % (auto) 8.8 %; Neutrophils # (auto) 1.41 K/uL (1.4-6.5); Neutrophils % (auto) 51.8 %; Polychromasia 1+; Tear Drop Cells 1+
[2022-08-30] MEDS: FERROUS SULFATE 325 MG TAB PO SCH ×2 (08:35→19:53)
[2022-08-30] MEDS: allopurinoL 100 MG TAB PO SCH ×2 (08:35→19:53)
[2022-08-30] MEDS: PANTOprazole 40 MG in SYRINGE 0 ML IV SCH ×2 (08:35→19:54)
[2022-08-30] MEDS: CITALOPRAM 20 MG TAB PO SCH (08:35)
[2022-08-30] MEDS: rifAXIMin 550 MG TABLET PO SCH ×2 (08:35→19:54)
[2022-08-30] MEDS: FINASTERIDE 5 MG TAB PO SCH (08:35)
[2022-08-30] MEDS: LACTULOSE SYRUP 20 GM/30 ML UDC PO SCH ×3 (08:36→19:55)
[2022-08-30] MEDS ORDERED: SODIUM CHLORIDE 0.9% 250 ML IV PRN (08:38)
--- NOTE | 2022-08-30 13:40 | Hospitalist Progress Note ---
Date of Service August 30, 2022 Assessment & Plan (1) Hepatic encephalopathy: Plan: Per admitting service notes with attempted Worsening confusion over the last few days with elevated ammonia level. Initial sign out that pt was refusing to take Lactulose as prescribed but upon further investigation, staff at [facility] report that pt has not been missing doses yet remains more confused. - Admit to PCU - Lactulose enemas until less confused and can safely take po - Consult GI - appreciate recommendations - Head CT pending - Check urine and blood cultures to eval for infection 08/30 Patient's mental status slowly improving daily CT head: 2. White matter hypodensities. These may reflect small vessel disease however appear increased since head CT of August 02, 2022 and are therefore indeterminate. An MRI of the brain could be obtained for further evaluation. 3. Nonspecific pontine hypodensity which can also be assessed on MRI. Lactulose enema transitioned to p.o. 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 (4) Pancytopenia: (5) T2DM (type 2 diabetes mellitus): Plan: Insulin-requiring - last A1c on 07/27 was 9.1 - Continue Lantus for basal, insulin sliding scale (6) Prostate cancer: (7) CKD (chronic kidney disease) stage 3, GFR 30-59 ml/min: (8) GERD (gastroesophageal reflux disease): Plan DVT Prophylaxis: SCDs in view of anemia, chronic blood loss Code Status: Full code Disposition [facility] Admission and Anticipated Discharge Date Admission Date: August 27, 2022 Subjective Follow-up for hepatic encephalopathy, etc. Seen resting in bed, comfortable, not in distress, appears to be more alert today, answering all questions appropriately Oriented x2 In good spirits States he feels improved today compared to yesterday Would like diet to be advanced Abdominal pain, nausea, fevers or chills Has hematuria per Kan cath No other symptoms Review of Systems Review of Systems: all noted and negative except for above Physical Exam Physical Exam: General- oriented x 2, not in distress, speaks in sentences with no effort or accessory muscle use Eyes- anicteric Neck- no JVD Lungs- clear BS bilaterally, no rales/wheezes Heart- normal rate, regular rhythm; no murmurs Abdomen- normal bowel sounds, nondistended, soft, nontender Extremities- trace pretibial edema, no calf tenderness Neuro- alert, oriented x 2; no gross focal neurologic deficits Skin- warm & dry Results & Data Results & Data ([facility]) Vital Signs (Past 12 Hours) Vital Signs Temp Pulse Pulse Pulse Resp BP BP 08/30/22 13:10 36.5 C 64 18 105/41 L 08/30/22 12:10 36.4 C L 68 18 133/57 L 08/30/22 11:40 36.6 C 60 16 123/59 L 08/30/22 11:25 36.6 C 61 18 103/41 L 08/30/22 11:15 36.6 C 61 16 103/42 L 08/30/22 10:34 36.6 C 62 16 108/43 L 08/30/22 08:31 36.9 C 60 18 08/30/22 03:15 36.3 C L 60 14 116/57 L BP Pulse Ox O2 Del Method 08/30/22 13:10 99 08/30/22 12:10 99 08/30/22 11:40 99 08/30/22 11:25 100 08/30/22 11:15 99 08/30/22 10:34 100 08/30/22 08:31 100/48 L 100 Room Air 08/30/22 03:15 99 Room Air all noted and reviewed including below (1) GERD (gastroesophageal reflux disease) Esophagitis presence: esophagitis presence not specified Qualified Code(s): K 21.9 - Gastro-esophageal reflux disease without esophagitis
--- NOTE | 2022-08-30 15:11 | Urology Consultation ---
Date of Consultation August 30, 2022 Assessment & Plan (1) Prostate cancer: (2) Hematuria: 72 yo M admitted for acute hepatic encephalopathy, GI bleed, and anemia. - Urology consulted for evaluation of hematuria - He has history of prostate ca s/p radiation, follows with Dr. Peraza of [place] - He is afebrile, nontoxic - Lab work reviewed - creatinine 1.59, WBC 2.72, Hgb 6.6 - Urine culture showed no growth and blood cultures are showing no growth x 48 hours - Suspect hematuria is secondary to hx of radiation, Kan catheter - Kan intact and draining dark red urine, no clots noted on present exam - Maintain Kan catheter at this time, continue to monitor closely - Okay to gently hand irrigate prn clot retention or suprapubic discomfort - Can attempt a voiding trial once medically stable or discharge with catheter to follow-up with his primary urologist - Continue supportive care and management per primary team - will follow peripherally Supervising Physician Co-Signing Physician Notes Discussed patient with [facility]. Agree with plan. Hematuria is likely from radiation cystitis. Difficult to get history from the patient. Anemia is likely multifactorial and unlikely to be as direct result of the hematuria. Can maintain Kan catheter and either discharge with follow-up with primary urologist, Dr. Peraza, or can attempt void trial prior to discharge. History of Present Illness Reason for Consultation: hematuria Requesting Physician: Dr. Villanueva Attending Physician: Franko Villanueva MD History of Present Illness 72 yo M with past medical history of FOFANA cirrhosis s/p TIPS x 2, on liver transplant list, esophageal varices, anemia of chronic disease, DM II, GI bleeding, prostate carcinoma s/p radiation, GERD, and CKD stage III admitted for acute hepatic encephalopathy, GI bleed, and anemia. He presented to [facility] ED on 08/27/22 from [facility] with increasing confusion and dropping hemoglobin. Per reports, ongoing rectal bleeding and hematuria noted in addition to lethargy and worsening confusion. On presentation, he was afebrile. Lab work showed a creatinine of 1.43, WBC 3.71, and Hgb on 7.6. Urinalysis on arrival showed trace leukocytes, >30 RBCs, 1-5 WBCs, 20-30 epithelials. Urine and blood cultures collected. Urology consulted today for hematuria. Patient follows with [facility], for history of prostate cancer s/p radiation therapy. Per chart review, Kan catheter was placed on admission 08/27. Per nursing notes, hematuria/dark urine since arrival. Urine culture on 08/27 showed no growth. Blood cultures no growth x 48 hours. Patient seen and examined at bedside. He is sleeping and arouses easily to his name. He denies flank or abdominal pain. Tolerating Kan catheter. Kan intact and draining clear red/brown urine, no clots noted. He is unable to tell me when the hematuria started. He reports that he voids spontaneously prior to admission. No nausea or vomiting. No fever or chills. He answers questions but I am unable to obtain much meaningful history. PSA was <0.008 on 03/13/22. Allergies Allergy/AdvReac Type Severity Reaction Status Date / Time No Known Allergies Allergy Mild Verified 04/12/22 08:58 Home Medications Medication Instructions Recorded Confirmed Type citalopram 10 mg tablet (Celexa) 10 mg PO QAM 03/24/20 08/27/22 History allopurinol 100 mg tablet 100 mg PO BID 05/16/20 08/27/22 History rifaximin 550 mg tablet (Xifaxan) 550 mg PO BID 12/08/20 08/27/22 History finasteride 5 mg tablet 5 mg PO QAM 11/03/21 08/27/22 History lactulose 10 gram/15 mL oral 30 ml PO BID 03/13/22 08/27/22 History solution furosemide 20 mg tablet 20 mg PO QAM 07/26/22 08/27/22 History mirtazapine 30 mg tablet 30 mg PO HS 07/26/22 08/27/22 History spironolactone 25 mg tablet 25 mg PO QAM 07/26/22 08/27/22 History ferrous sulfate 325 mg (65 mg 325 mg PO BID #60 tabs 08/10/22 08/27/22 Rx iron) tablet insulin aspart U-100 100 unit/mL 1 unit (0.01 mL) SC UD 30 days 08/10/22 08/27/22 Rx subcutaneous solution (Novolog #0.3 mL U-100 Insulin aspart) docusate sodium 100 mg tablet 100 mg PO BID 08/27/22 08/27/22 History insulin glargine 100 unit/mL 15 unit subcut DAILY 08/27/22 08/27/22 History subcutaneous solution (Lantus U-100 Insulin) pantoprazole 40 mg tablet,delayed 40 mg PO DAILY 08/27/22 08/27/22 History release Patient History Medical History Anemia Anemia of chronic disease 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 CKD (chronic kidney disease) stage 3, GFR 30-59 ml/min DVT prophylaxis Esophageal varices Esophageal varices GAVE (gastric antral vascular ectasia) GERD (gastroesophageal reflux disease) Gout NO ISSUES CURRENTLY History of panic attacks Hyperosmolar hyperglycemic state (HHS) Hypertension Prostate cancer (11/10/20) Psoriasis Rectal bleeding Shortness of breath Upper GI bleed Surgical History History of abdominal paracentesis multiple History of colonoscopy with polypectomy History of esophagogastroduodenoscopy (EGD) last 10/25 revealed grade 2 esophageal varices, grade 1 gastric varices STABLE History of prostate biopsy malignant History of tonsillectomy and adenoidectomy S/P TIPS (transjugular intrahepatic portosystemic shunt) Family History Father , "3/4 liver gone due to drinking" Colorectal cancer, Onset Age: 63 Mother Lung cancer Daughter Cancer cervical and thyroid cancers Ovarian cancer Other No family history of adverse response to anesthesia 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 Smoking Status: Never smoker Second Hand Exposure: No; Hx Alcohol Use: No Hx Substance Use: No Preferred Language: Yoruba Communication Ability: Impaired Visual Impairment: No Limitations Hearing Ability: Normal Awnings Mechanic Required: No Beliefs That Will Affect Care: None marital status: Current Living Situation: Rehab Current Living Situation Comment: pt at [facility] 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 How many Children do You have: 6 How many Children do You have Comment: one , eldest daughter in her sleep from seizure disorder Feels Safe at Home: Yes Childhood Exposure to Second-Hand Smoke: Yes Diet Comment: "I watch my sugar, average fasting is 140 mg/dl" caffeine: Yes (cola, sugar free, decaf) during the past year weight has: remained stable Dental Care, Regularly: No Physical Activity Frequency: Does not Exercise Seatbelt Use: always Sunscreen Use: Yes Assistive Devices: Walker Review of Systems Review of Systems: All systems reviewed & are unremarkable except as noted in HPI & below Physical Exam Constitutional: comfortable; no acute distress Eyes: sclerae not anicteric Neck: trachea midline Respiratory: normal respiratory effort; no respiratory distress and no labored breathing Cardiovascular: Extremities: no pedal edema Gastrointestinal (Abdomen): Inspection/Auscultation: + abdomen distended Percussion/Palpation: abdomen soft; abdomen nontender Musculoskeletal: Head/Neck/Chest: normocephalic and head atraumatic Skin: + dry skin Neurologic: moves all extremities and awake Psychiatric: Orientation: alert and oriented to person Genitourinary: Kan intact and patent, tubing of catheter is stained red. There was little to no urine in the tubing to assess at time of exam. Urine in collection bag is clear red/brown urine, no clots. Results & Data ([facility]) Vital Signs (Past 12 Hours) Vital Signs Temp Pulse Pulse Pulse Resp BP BP 08/30/22 06:10 61 08/30/22 13:10 36.5 C 64 18 105/41 L 08/30/22 12:10 36.4 C L 68 18 133/57 L 08/30/22 11:40 36.6 C 60 16 123/59 L 08/30/22 11:25 36.6 C 61 18 103/41 L 08/30/22 11:15 36.6 C 61 16 103/42 L 08/30/22 10:34 36.6 C 62 16 108/43 L 08/30/22 08:31 36.9 C 60 18 08/30/22 03:15 36.3 C L 60 14 116/57 L BP Pulse Ox O2 Del Method 08/30/22 06:10 08/30/22 13:10 99 08/30/22 12:10 99 08/30/22 11:40 99 08/30/22 11:25 100 08/30/22 11:15 99 08/30/22 10:34 100 08/30/22 08:31 100/48 L 100 Room Air 08/30/22 03:15 99 Room Air PG Care Time/CCT Total # of Minutes Spent Total Time Spent with Patient: Total time spent is greater than 50% in coordination of care (as documented) at patient's floor/unit and/or counseling patient: Coding Level of Care Code 66192 Initial Inpt Care Lvl 2 Diagnoses Prostate cancer C61 Hematuria R31.9
[2022-08-30 19:54] LABS: Hematocrit (blood only) 23.9 % (40.1-51.0); Hemoglobin 8.1 g/dl (14.0-18.0)
[2022-08-30] MEDS: MIRTAZAPINE TAB 15 MG TAB PO SCH (19:54)
[2022-08-31] MEDS: FERROUS SULFATE 325 MG TAB PO SCH ×2 (08:33→20:26)
[2022-08-31] MEDS: FINASTERIDE 5 MG TAB PO SCH (08:33)
[2022-08-31] MEDS: rifAXIMin 550 MG TABLET PO SCH ×2 (08:33→20:26)
[2022-08-31] MEDS: allopurinoL 100 MG TAB PO SCH ×2 (08:34→20:26)
[2022-08-31] MEDS: PANTOprazole 40 MG in SYRINGE 0 ML IV SCH ×2 (08:34→20:25)
[2022-08-31] MEDS: LACTULOSE SYRUP 20 GM/30 ML UDC PO SCH ×3 (08:34→20:25)
[2022-08-31] MEDS: CITALOPRAM 20 MG TAB PO SCH (08:34)
[2022-08-31] MEDS: INSULIN ASPART PER UNIT SC SCH ×4 (08:47→20:22)
[2022-08-31] MEDS: LANTUS PER UNIT CHARGE SQ SCH ×2 (08:48→20:29)
[2022-08-31 10:10] LABS: Basophils # (auto) 0.01 K/uL (0-0.2); Basophils % (auto) 0.3 %; Eosinophils # (auto) 0.25 K/uL (0-0.50); Eosinophils % (auto) 7.4 %; Hematocrit (blood only) 22.9 % (40.1-51.0); Hemoglobin 7.8 g/dl (14.0-18.0); Immature Granulocytes # (auto) 0.02 K/uL (0.00-0.02); Immature Granulocytes % (auto) 0.6 %; Lymphocytes # (auto) 0.66 K/uL (1.2-3.4); Lymphocytes % (auto) 19.6 %; Mean Platelet Volume 10.2 fL (9.4-12.4); Monocytes # (auto) 0.26 K/uL (0.24-0.82); Monocytes % (auto) 7.7 %; Neutrophils # (auto) 2.16 K/uL (1.4-6.5); Neutrophils % (auto) 64.4 %; Platelet Count 81 K/uL (130-400); White Blood Count 3.36 K/ul (4.8-10.8)
[2022-08-31 10:21] LABS: BUN Creatinine Ratio 19.2 (10-20); Calcium 7.8 mg/dl (8.5-10.1); Est GFR (African American) 54.9 ml/min; Est GFR (Non-African American) 47.4 ml/min; Potassium 3.8 mmol/L (3.5-5.1)
[2022-08-31 10:43] LABS: Anisocytosis Present; Mean Corpuscular Hemoglobin 33.9 pg (25.0-34.0); Mean Corpuscular Hgb Conc 34.1 g/dL (32.0-36.0); Mean Corpuscular Volume 99.6 fL (80.0-100.0); Polychromasia 1+; RDW Coefficient of Variation 20.1 % (11.5-14.5); RDW Standard Deviation 71.8 fL (36.4-46.3); Tear Drop Cells 1+
--- NOTE | 2022-08-31 18:05 | Hospitalist Progress Note ---
Date of Service August 31, 2022 Assessment & Plan (1) Hepatic encephalopathy: Plan: Per admitting service notes with attempted Worsening confusion over the last few days with elevated ammonia level. Initial sign out that pt was refusing to take Lactulose as prescribed but upon further investigation, staff at [facility] report that pt has not been missing doses yet remains more confused. - Admit to PCU - Lactulose enemas until less confused and can safely take po - Consult GI - appreciate recommendations - Head CT pending - Check urine and blood cultures to eval for infection 08/31 Patient's mental status slowly improving daily--> back to baseline mental status today CT head: 2. White matter hypodensities. These may reflect small vessel disease however appear increased since head CT of August 02, 2022 and are therefore indeterminate. An MRI of the brain could be obtained for further evaluation. 3. Nonspecific pontine hypodensity which can also be assessed on MRI. Continue p.o. 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 and ongoing hematuria - Since repeat Hgb in the ED was 7.6, will hold transfusion for now - repeat H&H tonight - Appreciate GI input regarding need for possible repeat scope pending worsening rectal bleeding 08/30 Hemoglobin decreased to 6.6 Positive hematuria Kan catheter No report of rectal bleeding today Platelet count 89K 1 unit packed RBC ordered Urologist consulted 08/31 Hemoglobin increased to 7.8 Urology recommendations noted-hematuria likely secondary to radiation, Kan catheter trauma Discussed with RN, and irrigation as needed to be performed Continue to monitor (3) 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 (4) Pancytopenia: (5) T2DM (type 2 diabetes mellitus): Plan: Insulin-requiring - last A1c on 07/27 was 9.1 - Continue Lantus for basal, insulin sliding scale (6) Prostate cancer: (7) CKD (chronic kidney disease) stage 3, GFR 30-59 ml/min: (8) GERD (gastroesophageal reflux disease): Plan DVT Prophylaxis: SCDs in view of anemia, chronic blood loss Code Status: Full code Disposition [facility] Admission and Anticipated Discharge Date Admission Date: August 27, 2022 Subjective Follow-up for acute hepatic encephalopathy, liver cirrhosis, anemia, etc. Seen resting in bed, awake, alert, oriented x3 Answers all questions appropriately Patient appears to be back to his baseline mental status (known to me from previous admission last month) States he feels improving overall No abdominal pain, nausea vomiting, fevers or chills Report of melena hematochezia Still has some hematuria per Kan catheter, but denies suprapubic pain No other symptoms Review of Systems Review of Systems: all noted and negative except for above Physical Exam Physical Exam: General- oriented x 3, not in distress, speaks in sentences with no effort or accessory muscle use Eyes- anicteric Neck- no JVD Lungs- clear breath sounds bilaterally, no wheezing, no crackles noted Heart- normal rate, regular rhythm; no murmurs Abdomen- normal bowel sounds, nondistended, soft, nontender Extremities- no pretibial edema, no calf tenderness Kan catheter in place, with red-tinged urine Neuro- alert, oriented x 3; no gross focal neurologic deficits Skin- warm & dry Results & Data Results & Data ([facility]) Vital Signs (Past 12 Hours) Vital Signs Temp Pulse Pulse Pulse Resp BP BP 08/31/22 16:08 36.7 C 66 18 139/64 08/31/22 15:22 65 08/31/22 11:26 37 C 62 18 124/70 08/31/22 08:00 61 08/31/22 08:00 36.8 C 71 20 125/64 Pulse Ox O2 Del Method 08/31/22 16:08 99 Room Air 08/31/22 15:22 08/31/22 11:26 98 Room Air 08/31/22 08:00 08/31/22 08:00 100 Room Air all noted and reviewed including below (1) GERD (gastroesophageal reflux disease) Esophagitis presence: esophagitis presence not specified Qualified Code(s): K21.9 - Gastro-esophageal reflux disease without esophagitis
[2022-08-31] MEDS: SPIRONOLACTONE 25 MG TAB PO SCH (20:25)
[2022-08-31] MEDS: FUROSEMIDE 20 MG TAB PO SCH (20:25)
[2022-08-31] MEDS: MIRTAZAPINE TAB 15 MG TAB PO SCH (20:26)
[2022-09-01 07:57] LABS: Basophils # (auto) 0.01 K/uL (0-0.2); Basophils % (auto) 0.3 %; Eosinophils # (auto) 0.21 K/uL (0-0.50); Eosinophils % (auto) 7.1 %; Hematocrit (blood only) 24.2 % (40.1-51.0); Hemoglobin 8.2 g/dl (14.0-18.0); Immature Granulocytes # (auto) 0.01 K/uL (0.00-0.02); Immature Granulocytes % (auto) 0.3 %; Lymphocytes # (auto) 0.81 K/uL (1.2-3.4); Lymphocytes % (auto) 27.4 %; Mean Platelet Volume 10.8 fL (9.4-12.4); Monocytes % (auto) 6.8 %; Neutrophils # (auto) 1.72 K/uL (1.4-6.5); Neutrophils % (auto) 58.1 %; Platelet Count 81 K/uL (130-400); White Blood Count 2.96 K/ul (4.8-10.8)
[2022-09-01 08:08] LABS: Base Excess ABG -3.2 mEq/L (-9-1.8); HCO3 ABG 19 mmol/L (19-24); Oxygen Saturation ABG 99.4 % (90-95); PCO2 ABG 26 mmHg (35-46); PO2 ABG 120 mmHg (80-95); pH ABG 7.47 (7.35-7.45)
[2022-09-01 08:13] LABS: INR 1.2 (0.9-1.1); Prothrombin Time 12.5 Seconds (9.0-12.0)
[2022-09-01 08:18] LABS: Anisocytosis Present; Mean Corpuscular Hemoglobin 33.9 pg (25.0-34.0); Mean Corpuscular Hgb Conc 33.9 g/dL (32.0-36.0); Polychromasia 1+; RDW Coefficient of Variation 20.1 % (11.5-14.5); RDW Standard Deviation 70.9 fL (36.4-46.3); Red Blood Count 2.42 M/uL (4.63-6.08); Tear Drop Cells 1+
[2022-09-01 08:32] LABS: BUN Creatinine Ratio 21.1 (10-20); Calcium 7.8 mg/dl (8.5-10.1); Creatinine Clr Calc Pharmacy 51.2 ml/min; Est GFR (African American) 56.8 ml/min; Potassium 4.3 mmol/L (3.5-5.1)
--- NOTE | 2022-09-01 08:38 | CT Scan Report ---
CT SCAN OF THE BRAIN WITHOUT IV CONTRAST CLINICAL HISTORY: Change in mental status. COMPARISON STUDY: CT of the brain dated 08/27/2022. TECHNIQUE: Unenhanced axial CT scan of the brain is performed from the vertex to the skull base. A do se lowering technique was utilized adhering to the principles of ALARA. The examination is degraded b y motion artifact. CT DOSE: 614.27 mGy.cm FINDINGS: Brain parenchyma: There is age-related involutional change noting moderate subcortical and periventri cular microangiopathic disease. There is no hemorrhage, mass effect, or evidence of acute territorial ischemia by CT criteria. Nash-white matter differentiation is preserved. No extra-axial fluid collec tion is seen. Ventricles, sulci, cisterns: Prominent secondary to involutional change. Intracranial vasculature: There is atherosclerotic calcification of the cavernous carotid and vertebr al arteries. Calvarium: Unremarkable. Sinuses and mastoids: There is trace mucosal thickening within the maxillary antra. The remaining par anasal sinuses are clear. The mastoid air cells are well pneumatized. Orbits: The bony orbits are grossly intact. IMPRESSION: There is no hemorrhage, mass effect, or evidence of acute territorial ischemia by CT alvarot gordo noting a motion compromised examination. ACT 112: Negative or not required by law. Electronically signed by: Scott Yepez M.D. 09/01/2022 8:35 AM
[2022-09-01 08:41] LABS: Allen Test Pos (Pos)
[2022-09-01] MEDS: INSULIN ASPART PER UNIT SC SCH ×4 (09:11→20:27)
[2022-09-01] MEDS: PANTOprazole 40 MG in SYRINGE 0 ML IV SCH ×2 (09:20→21:21)
[2022-09-01] MEDS: LANTUS PER UNIT CHARGE SQ SCH ×2 (10:04→20:38)
[2022-09-01] MEDS: LACTULOSE 200GM/700ML WTR ENEMA PR SCH ×3 (10:05→22:50)
[2022-09-01] MEDS: allopurinoL 100 MG TAB PO SCH ×2 (10:06→20:37)
[2022-09-01] MEDS: FINASTERIDE 5 MG TAB PO SCH (10:06)
[2022-09-01] MEDS: CITALOPRAM 20 MG TAB PO SCH (10:06)
[2022-09-01] MEDS: FUROSEMIDE 20 MG TAB PO SCH (10:06)
[2022-09-01] MEDS: LACTULOSE SYRUP 20 GM/30 ML UDC PO SCH ×3 (10:06→20:38)
[2022-09-01] MEDS: FERROUS SULFATE 325 MG TAB PO SCH ×2 (10:06→20:37)
[2022-09-01] MEDS: SPIRONOLACTONE 25 MG TAB PO SCH (10:07)
[2022-09-01] MEDS: rifAXIMin 550 MG TABLET PO SCH ×2 (10:07→20:37)
--- NOTE | 2022-09-01 16:13 | Hospitalist Progress Note ---
Date of Service September 01, 2022 Assessment & Plan (1) Hepatic encephalopathy: Plan: Per admitting service notes with attempted Worsening confusion over the last few days with elevated ammonia level. Initial sign out that pt was refusing to take Lactulose as prescribed but upon further investigation, staff at [facility] report that pt has not been missing doses yet remains more confused. - Admit to PCU - Lactulose enemas until less confused and can safely take po - Consult GI - appreciate recommendations - Head CT pending - Check urine and blood cultures to eval for infection 08/31 Patient's mental status slowly improving daily--> back to baseline mental status today CT head: 2. White matter hypodensities. These may reflect small vessel disease however appear increased since head CT of August 02, 2022 and are therefore indeterminate. An MRI of the brain could be obtained for further evaluation. 3. Nonspecific pontine hypodensity which can also be assessed on MRI. Continue p.o. lactulose, and rifaximin Brain MRI ordered to assess CT head findings 09/01 Again having abdominal status, confusion, drowsiness Ammonia level increased from 121, now 178 CT head: No acute process ABG: No hypercapnia Change lactulose p.o. 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 and ongoing hematuria - Since repeat Hgb in the ED was 7.6, will hold transfusion for now - repeat H&H tonight - Appreciate GI input regarding need for possible repeat scope pending worsening rectal bleeding 08/30 Hemoglobin decreased to 6.6 Positive hematuria Kan catheter No report of rectal bleeding today Platelet count 89K 1 unit packed RBC ordered Urologist consulted 08/31 Hemoglobin increased to 7.8 Urology recommendations noted-hematuria likely secondary to radiation, Kan catheter trauma Discussed with RN, and irrigation as needed to be performed Continue to monitor 09/01 Hemoglobin remaining stable since blood transfusion 2 days ago Hemoglobin 8.2 Hematuria resolving (3) 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 (4) Pancytopenia: (5) T2DM (type 2 diabetes mellitus): Plan: Insulin-requiring - last A1c on 07/27 was 9.1 - Continue Lantus for basal, insulin sliding scale Hold while patient is n.p.o., with poor intake (6) Prostate cancer: (7) CKD (chronic kidney disease) stage 3, GFR 30-59 ml/min: (8) GERD (gastroesophageal reflux disease): Plan DVT Prophylaxis: SCDs in view of anemia, chronic blood loss Code Status: Full code Disposition Anticipate discharge to [facility] when patient is medically stable Admission and Anticipated Discharge Date Admission Date: August 27, 2022 Subjective Follow-up for acute hepatic encephalopathy, etc. This morning, patient noted to be confused again, not responding questions appropriately, on the drowsy side Seen at the bedside immediately, patient awake but not answering questions, repeatedly saying yes to all questions Not in distress, moves all extremities equally No facial droop Only had 1 BM yesterday No melena, no hematuria noted Review of Systems Review of Systems: all noted and negative except for above Physical Exam Physical Exam: General-not oriented, not in distress, answers only with reports with no effort or accessory muscle use Eyes- anicteric Neck- no JVD Lungs- clear breath sounds bilaterally, no rales/wheezes Heart- normal rate, regular rhythm; no murmurs Abdomen- normal bowel sounds, nondistended, soft, nontender Extremities- no pretibial edema, no calf tenderness Neuro- alert, not oriented, no facial droop, dysarthria, moves all extremities equally Skin- warm & dry Results & Data Results & Data ([facility]) Vital Signs (Past 12 Hours) Vital Signs Temp Pulse Pulse Resp BP BP Pulse Ox 09/01/22 15:43 36.3 C L 66 21 112/53 L 100 09/01/22 11:18 36.2 C L 61 16 104/68 100 09/01/22 10:35 62 09/01/22 07:45 36.4 C L 64 14 144/68 H 100 O2 Del Method 09/01/22 15:43 Room Air 09/01/22 11:18 Room Air 09/01/22 10:35 09/01/22 07:45 Room Air all noted and reviewed including below (1) GERD (gastroesophageal reflux disease) Esophagitis presence: esophagitis presence not specified Qualified Code(s): K21.9 - Gastro-esophageal reflux disease without esophagitis
[2022-09-01] MEDS: MIRTAZAPINE TAB 15 MG TAB PO SCH (20:38)
[2022-09-01] MEDS ORDERED: LACTULOSE SYRUP 30 GM/45 ML UDP PO STA (22:49)
[2022-09-02] MEDS: LACTULOSE 200GM/700ML WTR ENEMA PR SCH ×2 (03:55→10:52)
[2022-09-02 05:36] LABS: Basophils # (auto) 0.02 K/uL (0-0.2); Basophils % (auto) 0.6 %; Eosinophils # (auto) 0.21 K/uL (0-0.50); Eosinophils % (auto) 5.9 %; Hematocrit (blood only) 24.3 % (40.1-51.0); Hemoglobin 8.1 g/dl (14.0-18.0); Immature Granulocytes # (auto) 0.02 K/uL (0.00-0.02); Immature Granulocytes % (auto) 0.6 %; Lymphocytes # (auto) 0.85 K/uL (1.2-3.4); Lymphocytes % (auto) 23.9 %; Mean Platelet Volume 11.3 fL (9.4-12.4); Monocytes # (auto) 0.26 K/uL (0.24-0.82); Monocytes % (auto) 7.3 %; Neutrophils # (auto) 2.19 K/uL (1.4-6.5); Neutrophils % (auto) 61.7 %; Platelet Count 86 K/uL (130-400); White Blood Count 3.55 K/ul (4.8-10.8)
[2022-09-02 05:57] LABS: BUN Creatinine Ratio 22.1 (10-20); Creatinine Clr Calc Pharmacy 50.2 ml/min; Est GFR (African American) 55.4 ml/min; Est GFR (Non-African American) 47.8 ml/min; Magnesium 1.8 mg/dl (1.7-2.4); Potassium 4.1 mmol/L (3.5-5.1)
[2022-09-02 06:02] LABS: Anisocytosis Present; Mean Corpuscular Hemoglobin 33.8 pg (25.0-34.0); Mean Corpuscular Hgb Conc 33.3 g/dL (32.0-36.0); Mean Corpuscular Volume 101.3 fL (80.0-100.0); Polychromasia 1+; RDW Coefficient of Variation 20.3 % (11.5-14.5); RDW Standard Deviation 73.9 fL (36.4-46.3); Tear Drop Cells 1+
[2022-09-02] MEDS: PANTOprazole 40 MG in SYRINGE 0 ML IV SCH ×2 (08:37→19:57)
[2022-09-02] MEDS: FINASTERIDE 5 MG TAB PO SCH (08:37)
[2022-09-02] MEDS: allopurinoL 100 MG TAB PO SCH ×2 (08:37→19:59)
[2022-09-02] MEDS: CITALOPRAM 20 MG TAB PO SCH (08:37)
[2022-09-02] MEDS: FERROUS SULFATE 325 MG TAB PO SCH ×2 (08:38→19:59)
[2022-09-02] MEDS: SPIRONOLACTONE 25 MG TAB PO SCH (08:38)
[2022-09-02] MEDS: FUROSEMIDE 20 MG TAB PO SCH (08:38)
[2022-09-02] MEDS: rifAXIMin 550 MG TABLET PO SCH ×2 (08:39→19:58)
[2022-09-02] MEDS: LACTULOSE SYRUP 20 GM/30 ML UDC PO SCH ×3 (08:39→19:58)
[2022-09-02] MEDS: INSULIN ASPART PER UNIT SC SCH ×4 (08:53→19:53)
[2022-09-02] MEDS: LANTUS PER UNIT CHARGE SQ SCH ×2 (08:54→19:54)
--- NOTE | 2022-09-02 12:43 | Hospitalist Progress Note ---
Date of Service September 02, 2022 Assessment & Plan (1) Hepatic encephalopathy: Plan: He is with FOFANA cirrhosis and was admitted with worsening confusion over the last few days with elevated ammonia level. Initial sign out that pt was refusing to take Lactulose as prescribed but upon further investigation, staff at [facility] report that pt has not been missing doses yet remains more confused. - Lactulose enemas until less confused and can safely take po - Consult GI - appreciate recommendations -Initial head CT showed:IMPRESSION: 1. No acute intracranial hemorrhage or mass effect. 2. White matter hypodensities. These may reflect small vessel disease however appear increased since head CT of August 02, 2022 and are therefore indeterminate. An MRI of the brain could be obtained for further evaluation. 3. Nonspecific pontine hypodensity which can also be assessed on MRI. -Repeat CT -no acute process -No definitive source of infection. 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 and ongoing hematuria - Since repeat Hgb in the ED was 7.6, will hold transfusion for now - repeat H&H tonight - Appreciate GI input regarding need for possible repeat scope pending worsening rectal bleeding -Hemoglobin decreased to 6.6 and received 1 unit of blood transfusion -Denies any more rectal bleeding (3) Hematuria: Plan: He was noted to have hematuria Likely secondary to history of prostate cancer status postradiation Kan catheter in place and the urine is seems to be dark-colored without any yannick hematuria Appreciate urology input and recommendation Hemoglobin remained stable at 8.1 today 09/02/2022 (4) 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 (5) Pancytopenia: Plan: Secondary to cirrhosis (6) T2DM (type 2 diabetes mellitus): Plan: Insulin-requiring - last A1c on 07/27 was 9.1 - Continue Lantus for basal, insulin sliding scale Hold while patient is n.p.o., with poor intake (7) Prostate cancer: (8) CKD (chronic kidney disease) stage 3, GFR 30-59 ml/min: Plan: Kidney function remains stable at creatinine level of 1.45 (9) GERD (gastroesophageal reflux disease): Plan DVT Prophylaxis: SCDs in view of anemia, chronic blood loss Code Status: Full code Disposition Anticipate discharge to [facility] when patient is medically stable Admission and Anticipated Discharge Date Admission Date: August 27, 2022 Subjective 09/02/2022 The patient was seen and examined in telemetry unit He has been feeling much better and has had a few bowel movements last night Only 1 bowel movement this morning and lactulose will be given as needed No more confusion and denies any other significant symptoms Review of Systems Review of Systems: All systems reviewed and are unremarkable except as noted below Neurologic: Alert, awake and oriented x3. Generally weak Physical Exam Physical Exam: Lying in bed without any acute distress Constitutional: well developed, well nourished, + ill appearing and average body habitus Eyes: PERRL, conjunctivae normal, anicteric sclerae ENMT: external ear and nose normal, oropharynx normal Neck: trachea midline, no thyromegaly Respiratory: no respiratory distress Auscultation: lungs clear to auscultation bilaterally Cardiovascular: Rate/Rhythm: regular rate and regular rhythm; not tachycardic Heart Sounds: normal S1 and normal S2; no murmur Extremities: + edema (Trace to no edema bilaterally) Gastrointestinal (Abdomen): Inspection/Auscultation: normal bowel sounds; abdomen not distended Percussion/Palpation: abdomen soft; abdomen nontender Musculoskeletal: No acute arthritis in any joint Neurologic: normal touch/pain/proprioception and moves all extremities; no focal motor deficits Generally weak and lethargic Lymphatic: no cervical or axillary lymphadenopathy Results & Data Results & Data ([facility]) Vital Signs (Past 12 Hours) Vital Signs Temp Pulse Pulse Resp BP BP Pulse Ox 09/02/22 11:38 36.8 C 70 21 123/61 99 09/02/22 08:00 64 09/02/22 07:57 36.4 C L 76 20 129/72 99 09/02/22 03:10 36.8 C 64 14 118/52 L 97 O2 Del Method 09/02/22 11:38 Room Air 09/02/22 08:00 09/02/22 07:57 Room Air 09/02/22 03:10 Room Air Laboratory Results Short CBC 09/02/22 Range/Units 05:22 WBC 3.55 L (4.8-10.8) K/ul Hgb 8.1 L (14.0-18.0) g/dl Hct 24.3 L (40.1-51.0) % Plt Count 86 L (130-400) K/uL BMP 09/02/22 05:22 Sodium 141 Potassium 4.1 Chloride 115 H Carbon Dioxide 20 L BUN 32 H Creatinine 1.45 H Glucose 131 H Calcium 8.0 L Medications Administered Current Inpatient Medications Allopurinol (Allopurinol 100 Mg Tab) 100 mg PO BID JODI Stop: 09/28/22 09:44 Last Admin: 09/02/22 08:37 Dose: 100 mg Citalopram Hydrobromide (Citalopram 20 Mg Tab) 10 mg PO QAM JODI Stop: 09/28/22 09:44 Last Admin: 09/02/22 08:37 Dose: 10 mg Dextrose (Dextrose 50% 50 Ml Syringe) 25 - 50 ml IV UD PRN; Protocol PRN Reason: Hypoglycemia Protocol Stop: 09/26/22 13:34 Ferrous Sulfate (Ferrous Sulfate 325 Mg Tab) 325 mg PO BID JODI Stop: 09/28/22 09:44 Last Admin: 09/02/22 08:38 Dose: 325 mg Finasteride (Finasteride 5 Mg Tab) 5 mg PO QAM JODI Stop: 09/28/22 09:44 Last Admin: 09/02/22 08:37 Dose: 5 mg Furosemide (Furosemide 20 Mg Tab) 20 mg PO QAM JODI Stop: 09/30/22 18:14 Last Admin: 09/02/22 08:38 Dose: 20 mg Glucagon (Glucagon For Inj 1 Mg Vial) 1 mg SQ UD PRN; Protocol PRN Reason: Hypoglycemia Protocol Stop: 09/26/22 13:34 Glucose (Glucose 40% Gel 15 Gm Tube) 15 - 30 gm PO UD PRN; Protocol PRN Reason: Hypoglycemia Protocol Stop: 09/26/22 13:34 Glucose (Glucose 10 Tab/Tube) 4 - 8 tab PO UD PRN; Protocol PRN Reason: Hypoglycemia Treatment Stop: 09/26/22 13:34 Pantoprazole Sodium 40 mg/ (Syringe) 10 mls @ 5 mls/min IV BID JODI Stop: 09/26/22 20:59 Last Admin: 09/02/22 08:37 Dose: 5 mls/min Insulin Aspart (Insulin Aspart Per Unit) 0 units SC ACHS JODI Stop: 09/26/22 16:29 Last Admin: 09/02/22 11:43 Dose: 9 units Insulin Glargine (Lantus Per Unit Charge) 7 units SQ BID JODI Stop: 09/26/22 20:59 Last Admin: 09/02/22 08:54 Dose: 7 units Lactulose (Lactulose Syrup 20 Gm/30 Ml Udc) 20 gm PO TID JODI Stop: 09/27/22 08:59 Last Admin: 09/02/22 08:39 Dose: 20 gm Lactulose (Lactulose 200gm/700ml Wtr Enema) 200 gm OK Q6H JODI Stop: 10/01/22 07:59 Last Admin: 09/02/22 10:52 Dose: Not Given Mirtazapine (Mirtazapine Tab 15 Mg Tab) 30 mg PO HS JODI Stop: 09/28/22 20:59 Last Admin: 09/01/22 20:38 Dose: 30 mg Miscellaneous (Carbohydrates For Hypoglycemia ) 15 - 30 gm PO UD PRN PRN Reason: Hypoglycemia Protocol Stop: 09/26/22 13:34 Rifaximin (Rifaximin 550 Mg Tablet) 550 mg PO BID [facility] Stop: 09/27/22 08:59 Last Admin: 09/02/22 08:39 Dose: 550 mg Spironolactone (Spironolactone 25 Mg Tab) 25 mg PO QAM JODI Stop: 09/30/22 18:14 Last Admin: 09/02/22 08:38 Dose: 25 mg (1) GERD (gastroesophageal reflux disease) Esophagitis presence: esophagitis presence not specified Qualified Code(s): K21.9 - Gastro-esophageal reflux disease without esophagitis
[2022-09-02] MEDS ORDERED: LACTULOSE 200GM/700ML WTR ENEMA PR PRN (15:46)
[2022-09-02] MEDS: MIRTAZAPINE TAB 15 MG TAB PO SCH (19:59)
[2022-09-03 03:52] LABS: Base Excess ABG -2.6 mEq/L (-9-1.8); HCO3 ABG 19 mmol/L (19-24); PCO2 ABG 25 mmHg (35-46); PO2 ABG 117 mmHg (80-95); pH ABG 7.49 (7.35-7.45)
[2022-09-03 03:53] LABS: Basophils # (auto) 0.01 K/uL (0-0.2); Basophils % (auto) 0.3 %; Eosinophils # (auto) 0.17 K/uL (0-0.50); Eosinophils % (auto) 4.5 %; Hematocrit (blood only) 23.7 % (40.1-51.0); Hemoglobin 8.1 g/dl (14.0-18.0); Immature Granulocytes # (auto) 0.01 K/uL (0.00-0.02); Immature Granulocytes % (auto) 0.3 %; Lymphocytes # (auto) 0.95 K/uL (1.2-3.4); Lymphocytes % (auto) 25.3 %; Monocytes # (auto) 0.24 K/uL (0.24-0.82); Monocytes % (auto) 6.4 %; Neutrophils # (auto) 2.38 K/uL (1.4-6.5); Neutrophils % (auto) 63.2 %; Platelet Count 85 K/uL (130-400); White Blood Count 3.76 K/ul (4.8-10.8)
[2022-09-03 03:57] LABS: Allen Test Pos (Pos)
[2022-09-03 04:14] LABS: Mean Corpuscular Hgb Conc 34.2 g/dL (32.0-36.0); Mean Corpuscular Volume 99.6 fL (80.0-100.0); Polychromasia 2+; RDW Coefficient of Variation 20.3 % (11.5-14.5); RDW Standard Deviation 72.1 fL (36.4-46.3); Red Blood Count 2.38 M/uL (4.63-6.08); Tear Drop Cells 1+
[2022-09-03 04:18] LABS: BUN Creatinine Ratio 24.1 (10-20); Calcium 7.9 mg/dl (8.5-10.1); Creatinine Clr Calc Pharmacy 53.1 ml/min; Est GFR (African American) 59.3 ml/min; Est GFR (Non-African American) 51.2 ml/min; Magnesium 1.6 mg/dl (1.7-2.4); Phosphorus 3.9 mg/dl (2.5-4.9); Potassium 3.9 mmol/L (3.5-5.1)
[2022-09-03] MEDS: MAGNESIUM SULFATE / D5W 1 GM/100 ML BAG IV SCH ×2 (04:34→06:19)
[2022-09-03] MEDS: LANTUS PER UNIT CHARGE SQ SCH ×2 (08:05→20:48)
[2022-09-03] MEDS: INSULIN ASPART PER UNIT SC SCH ×4 (08:05→20:39)
[2022-09-03] MEDS: LACTULOSE SYRUP 20 GM/30 ML UDC PO SCH ×3 (08:33→20:39)
[2022-09-03] MEDS: FUROSEMIDE 20 MG TAB PO SCH (08:33)
[2022-09-03] MEDS: PANTOprazole 40 MG in SYRINGE 0 ML IV SCH ×2 (08:33→20:39)
[2022-09-03] MEDS: FERROUS SULFATE 325 MG TAB PO SCH ×2 (08:33→20:38)
[2022-09-03] MEDS: FINASTERIDE 5 MG TAB PO SCH (08:34)
[2022-09-03] MEDS: rifAXIMin 550 MG TABLET PO SCH ×2 (08:34→20:39)
[2022-09-03] MEDS: CITALOPRAM 20 MG TAB PO SCH (08:34)
[2022-09-03] MEDS: allopurinoL 100 MG TAB PO SCH ×2 (08:34→20:38)
[2022-09-03] MEDS: SPIRONOLACTONE 25 MG TAB PO SCH (08:34)
--- NOTE | 2022-09-03 14:54 | Hospitalist Progress Note ---
Date of Service September 03, 2022 Assessment & Plan (1) Hepatic encephalopathy: Plan: He is with FOFANA cirrhosis and was admitted with worsening confusion over the last few days with elevated ammonia level. Initial sign out that pt was refusing to take Lactulose as prescribed but upon further investigation, staff at [facility] report that pt has not been missing doses yet remains more confused. - Lactulose enemas until less confused and can safely take po - Consult GI - appreciate recommendations -Initial head CT showed:IMPRESSION: 1. No acute intracranial hemorrhage or mass effect. 2. White matter hypodensities. These may reflect small vessel disease however appear increased since head CT of August 02, 2022 and are therefore indeterminate. An MRI of the brain could be obtained for further evaluation. 3. Nonspecific pontine hypodensity which can also be assessed on MRI. -Repeat CT -no acute process -No definitive source of infection. Blood and urine cultures are negative -Ammonia level is noted to be high at 101 yesterday and it has been coming down as of this morning to 72 -We will give lactulose as needed to maintain bowel movements about 2-3 a day -Has had more confusion last night and the ammonia level is just above 100 -Received lactulose enema and seems to much better this morning -Minimal dysarthria but otherwise no more confusion and he has been feeling much better -We will continue lactulose enema to have bowel movements about 3-4 times a day (2) Anemia: Plan: Suspect multifactorial due to chronic disease and ongoing blood loss in the setting of 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 and ongoing hematuria - Since repeat Hgb in the ED was 7.6, will hold transfusion for now - repeat H&H tonight - Appreciate GI input regarding need for possible repeat scope pending worsening rectal bleeding -Hemoglobin decreased to 6.6 and received 1 unit of blood transfusion -Denies any more rectal bleeding -Hemoglobin remained stable and more than 8 (3) Hematuria: Plan: He was noted to have hematuria Likely secondary to history of prostate cancer status postradiation Kan catheter in place and the urine is seems to be dark-colored without any yannick hematuria Appreciate urology input and recommendation Hemoglobin remained stable at 8.1 today 09/02/2022 (4) 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 (5) Pancytopenia: Plan: Secondary to cirrhosis (6) T2DM (type 2 diabetes mellitus): Plan: Insulin-requiring - last A1c on 07/27 was 9.1 - Continue Lantus for basal, insulin sliding scale Hold while patient is n.p.o., with poor intake (7) Prostate cancer: (8) CKD (chronic kidney disease) stage 3, GFR 30-59 ml/min: Plan: Kidney function remains stable at creatinine level of 1.45 (9) GERD (gastroesophageal reflux disease): Plan DVT Prophylaxis: SCDs in view of anemia, chronic blood loss Code Status: Full code Disposition Anticipate discharge to [facility] when patient is medically stable Remains reasonably stable and plan to transfer to [facility] tomorrow Admission and Anticipated Discharge Date Admission Date: August 27, 2022 Subjective 09/02/2022 The patient was seen and examined in telemetry unit He has been feeling much better and has had a few bowel movements last night Only 1 bowel movement this morning and lactulose will be given as needed No more confusion and denies any other significant symptoms 09/03/2022 The patient was seen and examined in telemetry unit He was noted to be more confused last night and ammonia level loss more than 100 Lactulose enema was given and this morning he is feeling much better Complains of weakness but denies any other symptoms Review of Systems Review of Systems: All systems reviewed and are unremarkable except as noted below Neurologic: Alert, awake and oriented x3. Generally weak Physical Exam Physical Exam: Lying in bed without any acute distress Constitutional: well developed, well nourished, + ill appearing and average body habitus Eyes: PERRL, conjunctivae normal, anicteric sclerae ENMT: external ear and nose normal, oropharynx normal Neck: trachea midline, no thyromegaly Respiratory: no respiratory distress Auscultation: lungs clear to auscultation bilaterally Cardiovascular: Rate/Rhythm: regular rate and regular rhythm; not tachycardic Heart Sounds: normal S1 and normal S2; no murmur Extremities: + edema (Trace to no edema bilaterally) Gastrointestinal (Abdomen): Inspection/Auscultation: normal bowel sounds; abdomen not distended Percussion/Palpation: abdomen soft; abdomen nontender Musculoskeletal: No acute arthritis in any joints Neurologic: normal touch/pain/proprioception and moves all extremities; no focal motor deficits Lymphatic: no cervical or axillary lymphadenopathy Results & Data Results & Data ([facility]) Vital Signs (Past 12 Hours) Vital Signs Temp Pulse Pulse Resp BP Pulse Ox O2 Del Method 09/03/22 12:00 36.5 C 70 20 108/51 L 97 09/03/22 09:00 67 09/03/22 08:35 36.8 C 68 16 127/54 L 98 Room Air 09/03/22 03:15 36.6 C 60 18 113/60 99 Room Air Laboratory Results Short CBC 09/03/22 Range/Units 03:46 WBC 3.76 L (4.8-10.8) K/ul Hgb 8.1 L (14.0-18.0) g/dl Hct 23.7 L (40.1-51.0) % Plt Count 85 L (130-400) K/uL BMP 09/03/22 03:46 Sodium 141 Potassium 3.9 Chloride 114 H Carbon Dioxide 19 L BUN 33 H Creatinine 1.37 Glucose 130 H Calcium 7.9 L Medications Administered Current Inpatient Medications Allopurinol (Allopurinol 100 Mg Tab) 100 mg PO BID JODI Stop: 09/28/22 09:44 Last Admin: 09/03/22 08:34 Dose: 100 mg Citalopram Hydrobromide (Citalopram 20 Mg Tab) 10 mg PO QAM JODI Stop: 09/28/22 09:44 Last Admin: 09/03/22 08:34 Dose: 10 mg Dextrose (Dextrose 50% 50 Ml Syringe) 25 - 50 ml IV UD PRN; Protocol PRN Reason: Hypoglycemia Protocol Stop: 09/26/22 13:34 Ferrous Sulfate (Ferrous Sulfate 325 Mg Tab) 325 mg PO BID JODI Stop: 09/28/22 09:44 Last Admin: 09/03/22 08:33 Dose: 325 mg Finasteride (Finasteride 5 Mg Tab) 5 mg PO QAM JODI Stop: 09/28/22 09:44 Last Admin: 09/03/22 08:34 Dose: 5 mg Furosemide (Furosemide 20 Mg Tab) 20 mg PO QAM JODI Stop: 09/30/22 18:14 Last Admin: 09/03/22 08:33 Dose: 20 mg Glucagon (Glucagon For Inj 1 Mg Vial) 1 mg SQ UD PRN; Protocol PRN Reason: Hypoglycemia Protocol Stop: 09/26/22 13:34 Glucose (Glucose 40% Gel 15 Gm Tube) 15 - 30 gm PO UD PRN; Protocol PRN Reason: Hypoglycemia Protocol Stop: 09/26/22 13:34 Glucose (Glucose 10 Tab/Tube) 4 - 8 tab PO UD PRN; Protocol PRN Reason: Hypoglycemia Treatment Stop: 09/26/22 13:34 Pantoprazole Sodium 40 mg/ (Syringe) 10 mls @ 5 mls/min IV BID JODI Stop: 09/26/22 20:59 Last Admin: 09/03/22 08:33 Dose: 5 mls/min Insulin Aspart (Insulin Aspart Per Unit) 0 units SC ACHS JODI Stop: 09/26/22 16:29 Last Admin: 09/03/22 12:00 Dose: 7 units Insulin Glargine (Lantus Per Unit Charge) 7 units SQ BID JODI Stop: 09/26/22 20:59 Last Admin: 09/03/22 08:05 Dose: 7 units Lactulose (Lactulose Syrup 20 Gm/30 Ml Udc) 20 gm PO TID JODI Stop: 09/27/22 08:59 Last Admin: 09/03/22 13:34 Dose: 20 gm Lactulose (Lactulose 200gm/700ml Wtr Enema) 200 gm LA Q6H PRN PRN Reason: Constipation Stop: 10/01/22 07:59 Last Admin: 09/03/22 04:45 Dose: 200 gm Mirtazapine (Mirtazapine Tab 15 Mg Tab) 30 mg PO HS [facility] Stop: 09/28/22 20:59 Last Admin: 09/02/22 19:59 Dose: 30 mg Miscellaneous (Carbohydrates For Hypoglycemia ) 15 - 30 gm PO UD PRN PRN Reason: Hypoglycemia Protocol Stop: 09/26/22 13:34 Rifaximin (Rifaximin 550 Mg Tablet) 550 mg PO BID JODI Stop: 09/27/22 08:59 Last Admin: 09/03/22 08:34 Dose: 550 mg Spironolactone (Spironolactone 25 Mg Tab) 25 mg PO QAM JODI Stop: 09/30/22 18:14 Last Admin: 09/03/22 08:34 Dose: 25 mg (1) GERD (gastroesophageal reflux disease) Esophagitis presence: esophagitis presence not specified Qualified Code(s): K21.9 - Gastro-esophageal reflux disease without esophagitis
[2022-09-03] MEDS: MIRTAZAPINE TAB 15 MG TAB PO SCH (20:39)
[2022-09-04] MEDS: FUROSEMIDE 20 MG TAB PO SCH (07:45)
[2022-09-04] MEDS: allopurinoL 100 MG TAB PO SCH ×2 (07:46→22:26)
[2022-09-04] MEDS: FINASTERIDE 5 MG TAB PO SCH (07:46)
[2022-09-04] MEDS: LACTULOSE SYRUP 20 GM/30 ML UDC PO SCH ×3 (07:46→22:27)
[2022-09-04] MEDS: FERROUS SULFATE 325 MG TAB PO SCH ×2 (07:46→22:26)
[2022-09-04] MEDS: rifAXIMin 550 MG TABLET PO SCH ×2 (07:47→22:27)
[2022-09-04] MEDS: CITALOPRAM 20 MG TAB PO SCH (07:47)
[2022-09-04] MEDS: PANTOprazole 40 MG in SYRINGE 0 ML IV SCH ×2 (07:47→22:25)
[2022-09-04] MEDS: INSULIN ASPART PER UNIT SC SCH ×4 (07:52→22:28)
[2022-09-04] MEDS: LANTUS PER UNIT CHARGE SQ SCH ×2 (07:52→22:29)
[2022-09-04] MEDS: SPIRONOLACTONE 25 MG TAB PO SCH (08:27)
[2022-09-04 08:29] LABS: Hematocrit (blood only) 22.7 % (40.1-51.0); Hemoglobin 7.6 g/dl (14.0-18.0); Platelet Count 79 K/uL (130-400); White Blood Count 3.26 K/ul (4.8-10.8)
[2022-09-04 08:56] LABS: Basophils # (auto) 0.02 K/uL (0-0.2); Basophils % (auto) 0.6 %; Eosinophils # (auto) 0.24 K/uL (0-0.50); Eosinophils % (auto) 7.4 %; Immature Granulocytes # (auto) 0.01 K/uL (0.00-0.02); Immature Granulocytes % (auto) 0.3 %; Lymphocytes # (auto) 0.89 K/uL (1.2-3.4); Lymphocytes % (auto) 27.3 %; Mean Corpuscular Hemoglobin 33.5 pg (25.0-34.0); Mean Corpuscular Hgb Conc 33.5 g/dL (32.0-36.0); Monocytes # (auto) 0.23 K/uL (0.24-0.82); Monocytes % (auto) 7.1 %; Neutrophils # (auto) 1.87 K/uL (1.4-6.5); Neutrophils % (auto) 57.3 %; Polychromasia 1+; RDW Standard Deviation 73.1 fL (36.4-46.3); Red Blood Count 2.27 M/uL (4.63-6.08); Tear Drop Cells 1+
[2022-09-04 09:43] LABS: BUN Creatinine Ratio 21.7 (10-20); Calcium 7.8 mg/dl (8.5-10.1); Creatinine Clr Calc Pharmacy 45.9 ml/min; Est GFR (African American) 50.3 ml/min; Est GFR (Non-African American) 43.4 ml/min; Potassium 3.7 mmol/L (3.5-5.1)
[2022-09-04] MEDS: LACTULOSE 200GM/700ML WTR ENEMA PR SCH ×3 (11:02→22:46)
--- NOTE | 2022-09-04 12:47 | Hospitalist Progress Note ---
Date of Service September 04, 2022 Assessment & Plan (1) Hepatic encephalopathy: Plan: He is with FOFANA cirrhosis and was admitted with worsening confusion over the last few days with elevated ammonia level. Initial sign out that pt was refusing to take Lactulose as prescribed but upon further investigation, staff at [facility] report that pt has not been missing doses yet remains more confused. - Lactulose enemas until less confused and can safely take po - Consult GI - appreciate recommendations -Initial head CT showed:IMPRESSION: 1. No acute intracranial hemorrhage or mass effect. 2. White matter hypodensities. These may reflect small vessel disease however appear increased since head CT of August 02, 2022 and are therefore indeterminate. An MRI of the brain could be obtained for further evaluation. 3. Nonspecific pontine hypodensity which can also be assessed on MRI. -Repeat CT -no acute process -No definitive source of infection. Blood and urine cultures are negative -Ammonia level is noted to be high at 101 yesterday and it has been coming down as of this morning to 72 -We will give lactulose as needed to maintain bowel movements about 2-3 a day -Has had more confusion last night and the ammonia level is just above 100 -Received lactulose enema and seems to much better this morning -Minimal dysarthria but otherwise no more confusion and he has been feeling much better -We will continue lactulose enema to have bowel movements about 3-4 times a day -No more and couple apathy even though ammonia level has gone up to 157 -We will start lactulose and enema every 6 hourly as ordered before to maintain bowel movements about 3-4 times a day (2) Anemia: Plan: Suspect multifactorial due to chronic disease and ongoing blood loss in the setting of 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 and ongoing hematuria - Since repeat Hgb in the ED was 7.6, will hold transfusion for now - repeat H&H tonight - Appreciate GI input regarding need for possible repeat scope pending worsening rectal bleeding -Hemoglobin decreased to 6.6 and received 1 unit of blood transfusion -Denies any more rectal bleeding -Hemoglobin remained stable and more than 8 -His hemoglobin has dropped to 7.6 and repeated at 5 PM today (3) Hematuria: Plan: He was noted to have hematuria Likely secondary to history of prostate cancer status postradiation Kan catheter in place and the urine is seems to be dark-colored without any yannick hematuria Appreciate urology input and recommendation Hemoglobin remained stable at 8.1 today 09/02/2022 Hematuria seems to be worsening-was seen by urologist and signed off We will observe for now (4) 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 (5) Pancytopenia: Plan: Secondary to cirrhosis (6) T2DM (type 2 diabetes mellitus): Plan: Insulin-requiring - last A1c on 07/27 was 9.1 - Continue Lantus for basal, insulin sliding scale Hold while patient is n.p.o., with poor intake (7) Prostate cancer: (8) CKD (chronic kidney disease) stage 3, GFR 30-59 ml/min: Plan: Kidney function remains stable at creatinine level of 1.45 (9) GERD (gastroesophageal reflux disease): Plan DVT Prophylaxis: SCDs in view of anemia, chronic blood loss Code Status: Full code Disposition Anticipate discharge to [facility] when patient is medically stable Remains reasonably stable and plan to transfer to [facility] tomorrow Admission and Anticipated Discharge Date Admission Date: August 27, 2022 Subjective 09/02/2022 The patient was seen and examined in telemetry unit He has been feeling much better and has had a few bowel movements last night Only 1 bowel movement this morning and lactulose will be given as needed No more confusion and denies any other significant symptoms 09/03/2022 The patient was seen and examined in telemetry unit He was noted to be more confused last night and ammonia level loss more than 100 Lactulose enema was given and this morning he is feeling much better Complains of weakness but denies any other symptoms 09/04/2022 The patient was seen and examined in telemetry unit He has not had any bowel movement since this morning Denies any abdominal pain, distention, nausea and or vomiting Now he is having hematuria and the hemoglobin is dropping Not confused even though the ammonia level has gone up to 157 Review of Systems Review of Systems: All systems reviewed and are unremarkable except as noted below Neurologic: Alert, awake and oriented x3. Generally weak Physical Exam Physical Exam: Lying in bed without any acute distress Constitutional: well developed, well nourished, + ill appearing and average body habitus Eyes: PERRL, conjunctivae normal, anicteric sclerae ENMT: external ear and nose normal, oropharynx normal Neck: trachea midline, no thyromegaly Respiratory: no respiratory distress Auscultation: lungs clear to auscultation bilaterally Cardiovascular: Rate/Rhythm: regular rate and regular rhythm; not tachycardic Heart Sounds: normal S1 and normal S2; no murmur Extremities: + edema (Trace to no edema bilaterally) Gastrointestinal (Abdomen): Inspection/Auscultation: normal bowel sounds; abdomen not distended Percussion/Palpation: abdomen soft; abdomen nontender Neurologic: normal touch/pain/proprioception and moves all extremities; no focal motor deficits Alert, awake and oriented x3. Remains generally weak Genitourinary: Having yannick hematuria Lymphatic: no cervical or axillary lymphadenopathy Results & Data Results & Data ([facility]) Vital Signs (Past 12 Hours) Vital Signs Temp Pulse Pulse Resp BP Pulse Ox O2 Del Method 09/04/22 11:33 36.6 C 64 18 117/55 L 98 Room Air 09/04/22 08:00 77 09/04/22 07:35 36.8 C 72 18 138/82 98 Room Air 09/04/22 02:48 36.6 C 67 20 143/64 H 95 Room Air Laboratory Results Short CBC 09/04/22 Range/Units 08:14 WBC 3.26 L (4.8-10.8) K/ul Hgb 7.6 L (14.0-18.0) g/dl Hct 22.7 L (40.1-51.0) % Plt Count 79 L (130-400) K/uL BMP 09/04/22 08:14 Sodium 138 Potassium 3.7 Chloride 111 H Carbon Dioxide 19 L BUN 34 H Creatinine 1.57 H Glucose 219 H Calcium 7.8 L Medications Administered Current Inpatient Medications Allopurinol (Allopurinol 100 Mg Tab) 100 mg PO BID JODI Stop: 09/28/22 09:44 Last Admin: 09/04/22 07:46 Dose: 100 mg Citalopram Hydrobromide (Citalopram 20 Mg Tab) 10 mg PO QAM JODI Stop: 09/28/22 09:44 Last Admin: 09/04/22 07:47 Dose: 10 mg Dextrose (Dextrose 50% 50 Ml Syringe) 25 - 50 ml IV UD PRN; Protocol PRN Reason: Hypoglycemia Protocol Stop: 09/26/22 13:34 Ferrous Sulfate (Ferrous Sulfate 325 Mg Tab) 325 mg PO BID JODI Stop: 09/28/22 09:44 Last Admin: 09/04/22 07:46 Dose: 325 mg Finasteride (Finasteride 5 Mg Tab) 5 mg PO QAM JODI Stop: 09/28/22 09:44 Last Admin: 09/04/22 07:46 Dose: 5 mg Furosemide (Furosemide 20 Mg Tab) 20 mg PO QAM JODI Stop: 09/30/22 18:14 Last Admin: 09/04/22 07:45 Dose: 20 mg Glucagon (Glucagon For Inj 1 Mg Vial) 1 mg SQ UD PRN; Protocol PRN Reason: Hypoglycemia Protocol Stop: 09/26/22 13:34 Glucose (Glucose 40% Gel 15 Gm Tube) 15 - 30 gm PO UD PRN; Protocol PRN Reason: Hypoglycemia Protocol Stop: 09/26/22 13:34 Glucose (Glucose 10 Tab/Tube) 4 - 8 tab PO UD PRN; Protocol PRN Reason: Hypoglycemia Treatment Stop: 09/26/22 13:34 Pantoprazole Sodium 40 mg/ (Syringe) 10 mls @ 5 mls/min IV BID JODI Stop: 09/26/22 20:59 Last Admin: 09/04/22 07:47 Dose: 5 mls/min Insulin Aspart (Insulin Aspart Per Unit) 0 units SC ACHS JODI Stop: 09/26/22 16:29 Last Admin: 09/04/22 11:49 Dose: 5 units Insulin Glargine (Lantus Per Unit Charge) 7 units SQ BID JODI Stop: 09/26/22 20:59 Last Admin: 09/04/22 07:52 Dose: 7 units Lactulose (Lactulose Syrup 20 Gm/30 Ml Udc) 20 gm PO TID JODI Stop: 09/27/22 08:59 Last Admin: 09/04/22 07:46 Dose: 20 gm Lactulose (Lactulose 200gm/700ml Wtr Enema) 200 gm CA Q6H JODI Stop: 10/04/22 09:59 Last Admin: 09/04/22 11:02 Dose: 200 gm Mirtazapine (Mirtazapine Tab 15 Mg Tab) 30 mg PO HS JODI Stop: 09/28/22 20:59 Last Admin: 09/03/22 20:39 Dose: 30 mg Miscellaneous (Carbohydrates For Hypoglycemia ) 15 - 30 gm PO UD PRN PRN Reason: Hypoglycemia Protocol Stop: 09/26/22 13:34 Rifaximin (Rifaximin 550 Mg Tablet) 550 mg PO BID [facility] Stop: 09/27/22 08:59 Last Admin: 09/04/22 07:47 Dose: 550 mg Spironolactone (Spironolactone 25 Mg Tab) 25 mg PO QAM [facility] Stop: 09/30/22 18:14 Last Admin: 09/04/22 08:27 Dose: 25 mg (1) GERD (gastroesophageal reflux disease) Esophagitis presence: esophagitis presence not specified Qualified Code(s): K21.9 - Gastro-esophageal reflux disease without esophagitis
[2022-09-04] MEDS: ZINC SULFATE 220 MG CAPSULE PO SCH (14:21)
[2022-09-04 17:19] LABS: Hematocrit (blood only) 24.3 % (40.1-51.0); Hemoglobin 8.1 g/dl (14.0-18.0)
[2022-09-04] MEDS: MIRTAZAPINE TAB 15 MG TAB PO SCH (22:26)
[2022-09-05] MEDS: LACTULOSE 200GM/700ML WTR ENEMA PR SCH ×4 (04:03→21:50)
[2022-09-05 05:01] LABS: Base Excess ABG -1.6 mEq/L (-9-1.8); HCO3 ABG 20 mmol/L (19-24); Oxygen Saturation ABG > 100.0 % (90-95); PCO2 ABG 24 mmHg (35-46); PO2 ABG 128 mmHg (80-95)
[2022-09-05 05:17] LABS: Allen Test Pos (Pos); pH ABG 7.52 (7.35-7.45)
[2022-09-05 05:18] LABS: Hematocrit (blood only) 20.8 % (40.1-51.0); Hemoglobin 6.9 g/dl (14.0-18.0); Mean Corpuscular Hemoglobin 33.3 pg (25.0-34.0); Mean Corpuscular Hgb Conc 33.2 g/dL (32.0-36.0); Mean Corpuscular Volume 100.5 fL (80.0-100.0); Mean Platelet Volume 10.3 fL (9.4-12.4); Platelet Count 74 K/uL (130-400); RDW Coefficient of Variation 19.9 % (11.5-14.5); RDW Standard Deviation 72.2 fL (36.4-46.3); Red Blood Count 2.07 M/uL (4.63-6.08); White Blood Count 3.26 K/ul (4.8-10.8)
[2022-09-05 05:20] LABS: Albumin Level 2.3 gm/dl (3.4-5.0); Bilirubin Direct 0.6 mg/dl (0-0.2); Bilirubin,Total 2.6 mg/dl (0.2-1.0); Calcium 7.8 mg/dl (8.5-10.1); Creatinine Clr Calc Pharmacy 59.1 ml/min; Est GFR (African American) 68.2 ml/min; Est GFR (Non-African American) 58.9 ml/min; Potassium 3.8 mmol/L (3.5-5.1); Total Protein 4.8 gm/dl (6.0-8.3)
[2022-09-05 05:21] LABS: Anisocytosis Present; Basophils # (auto) 0.02 K/uL (0-0.2); Basophils % (auto) 0.6 %; Eosinophils # (auto) 0.24 K/uL (0-0.50); Eosinophils % (auto) 7.4 %; Immature Granulocytes # (auto) 0.01 K/uL (0.00-0.02); Immature Granulocytes % (auto) 0.3 %; Lymphocytes # (auto) 0.86 K/uL (1.2-3.4); Lymphocytes % (auto) 26.4 %; Monocytes # (auto) 0.22 K/uL (0.24-0.82); Monocytes % (auto) 6.7 %; Neutrophils # (auto) 1.91 K/uL (1.4-6.5); Neutrophils % (auto) 58.6 %; Polychromasia 1+; Tear Drop Cells 1+
[2022-09-05] MEDS ORDERED: SODIUM CHLORIDE 0.9% 250 ML IV PRN (05:53)
[2022-09-05] MEDS: LACTULOSE SYRUP 20 GM/30 ML UDC PO SCH ×3 (08:06→20:10)
[2022-09-05] MEDS: rifAXIMin 550 MG TABLET PO SCH ×2 (08:06→20:10)
[2022-09-05] MEDS: allopurinoL 100 MG TAB PO SCH ×2 (08:06→20:08)
[2022-09-05] MEDS: CITALOPRAM 20 MG TAB PO SCH (08:06)
[2022-09-05] MEDS: PANTOprazole 40 MG in SYRINGE 0 ML IV SCH ×2 (08:06→20:10)
[2022-09-05] MEDS: FINASTERIDE 5 MG TAB PO SCH (08:07)
[2022-09-05] MEDS: FUROSEMIDE 20 MG TAB PO SCH (08:07)
[2022-09-05] MEDS: ZINC SULFATE 220 MG CAPSULE PO SCH (08:07)
[2022-09-05] MEDS: FERROUS SULFATE 325 MG TAB PO SCH ×2 (08:07→20:09)
[2022-09-05] MEDS: SPIRONOLACTONE 25 MG TAB PO SCH (08:07)
[2022-09-05] MEDS: INSULIN ASPART PER UNIT SC SCH ×4 (08:20→20:09)
[2022-09-05] MEDS: LANTUS PER UNIT CHARGE SQ SCH ×2 (08:20→20:09)
--- NOTE | 2022-09-05 13:24 | Hospitalist Progress Note ---
Date of Service September 05, 2022 Assessment & Plan (1) Hepatic encephalopathy: Plan: He is with FOFANA cirrhosis and was admitted with worsening confusion over the last few days with elevated ammonia level. Initial sign out that pt was refusing to take Lactulose as prescribed but upon further investigation, staff at [facility] report that pt has not been missing doses yet remains more confused. - Lactulose enemas until less confused and can safely take po - Consult GI - appreciate recommendations -Initial head CT showed:IMPRESSION: 1. No acute intracranial hemorrhage or mass effect. 2. White matter hypodensities. These may reflect small vessel disease however appear increased since head CT of August 02, 2022 and are therefore indeterminate. An MRI of the brain could be obtained for further evaluation. 3. Nonspecific pontine hypodensity which can also be assessed on MRI. -Repeat CT -no acute process -No definitive source of infection. Blood and urine cultures are negative -Ammonia level is noted to be high at 101 yesterday and it has been coming down as of this morning to 72 -We will give lactulose as needed to maintain bowel movements about 2-3 a day -Has had more confusion last night and the ammonia level is just above 100 -Received lactulose enema and seems to much better this morning -Minimal dysarthria but otherwise no more confusion and he has been feeling much better -Noted to be very confused last night-has been confused at night more than during daytime -ABG did show respiratory alkalosis and hemoglobin was down to 6.9 early this morning with ammonia level remained at 155 -Lactulose enema restarted scheduled and the patient has been feeling much better since this morning -We will make sure he moves his bowels about 3-5 times a day and continue his usual medications (2) Anemia: Plan: Suspect multifactorial due to chronic disease and ongoing blood loss in the setting of 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 and ongoing hematuria - Since repeat Hgb in the ED was 7.6, will hold transfusion for now - repeat H&H tonight - Appreciate GI input regarding need for possible repeat scope pending worsening rectal bleeding -Hemoglobin decreased to 6.6 and received 1 unit of blood transfusion -Denies any more rectal bleeding -Hemoglobin remained stable and more than 8 -His hemoglobin has dropped to 7.6 and repeated at 5 PM today -Hemoglobin went down to 6.9 early this morning but hematuria seems to be improving (3) Hematuria: Plan: He was noted to have hematuria Likely secondary to history of prostate cancer status postradiation Kan catheter in place and the urine is seems to be dark-colored without any yannick hematuria Appreciate urology input and recommendation Hemoglobin remained stable at 8.1 today 09/02/2022 Hematuria seems to be worsening-was seen by urologist and signed off We will observe for now-has been improving (4) 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 (5) Pancytopenia: Plan: Secondary to cirrhosis (6) T2DM (type 2 diabetes mellitus): Plan: Insulin-requiring - last A1c on 07/27 was 9.1 - Continue Lantus for basal, insulin sliding scale Hold while patient is n.p.o., with poor intake (7) Prostate cancer: (8) CKD (chronic kidney disease) stage 3, GFR 30-59 ml/min: Plan: Kidney function remains stable at creatinine level of 1.45 (9) GERD (gastroesophageal reflux disease): Plan DVT Prophylaxis: SCDs in view of anemia, chronic blood loss Code Status: Full code Disposition Anticipate discharge to [facility] when patient is medically stable Has been having episodes of confusion especially at nighttime associated with decreasing H&H Noted ready to be discharged Admission and Anticipated Discharge Date Admission Date: August 27, 2022 Subjective 09/02/2022 The patient was seen and examined in telemetry unit He has been feeling much better and has had a few bowel movements last night Only 1 bowel movement this morning and lactulose will be given as needed No more confusion and denies any other significant symptoms 09/03/2022 The patient was seen and examined in telemetry unit He was noted to be more confused last night and ammonia level loss more than 100 Lactulose enema was given and this morning he is feeling much better Complains of weakness but denies any other symptoms 09/04/2022 The patient was seen and examined in telemetry unit He has not had any bowel movement since this morning Denies any abdominal pain, distention, nausea and or vomiting Now he is having hematuria and the hemoglobin is dropping Not confused even though the ammonia level has gone up to 157 09/05/2022 The patient was seen and examined in telemetry unit He was noted to be very confused last night Stat blood test did show that his ammonia level was high at 155 and his h emoglobin was down to 6.9 He has been feeling much better this morning Only has 1 bowel movement since this morning Generally weak but denies any other significant symptoms Review of Systems Review of Systems: All systems reviewed and are unremarkable except as noted below Neurologic: Alert, awake and oriented x3. Generally weak Physical Exam Physical Exam: Lying in bed without any acute distress Constitutional: well developed, well nourished, + ill appearing and average body habitus Eyes: PERRL, conjunctivae normal, anicteric sclerae ENMT: external ear and nose normal, oropharynx normal Neck: trachea midline, no thyromegaly Respiratory: no respiratory distress Auscultation: lungs clear to auscultation bilaterally Cardiovascular: Rate/Rhythm: regular rate and regular rhythm; not tachycardic Heart Sounds: normal S1 and normal S2; no murmur Extremities: + edema (Trace to no edema bilaterally) Gastrointestinal (Abdomen): Inspection/Auscultation: normal bowel sounds; abdomen not distended Percussion/Palpation: abdomen soft; abdomen nontender Neurologic: normal touch/pain/proprioception and moves all extremities; no focal motor deficits Lymphatic: no cervical or axillary lymphadenopathy Results & Data Results & Data ([facility]) Vital Signs (Past 12 Hours) Vital Signs Temp Pulse Pulse Resp BP BP BP 09/05/22 11:29 37.1 C 65 16 120/46 L 09/05/22 10:48 36.9 C 62 16 107/44 L 09/05/22 10:47 36.9 C 62 16 107/44 L 09/05/22 09:48 36.6 C 65 16 97/38 L 09/05/22 09:18 36.6 C 71 16 110/47 L 09/05/22 09:03 36.8 C 63 16 132/52 L 09/05/22 09:03 36.8 C 63 16 132/52 L 09/05/22 08:43 36.6 C 63 16 112/51 L 09/05/22 06:43 36.5 C 63 16 130/64 09/05/22 03:36 36.7 C 71 16 115/56 L Pulse Ox O2 Del Method 09/05/22 11:29 100 09/05/22 10:48 100 09/05/22 10:47 09/05/22 09:48 100 09/05/22 09:18 99 09/05/22 09:03 100 09/05/22 09:03 100 09/05/22 08:43 98 09/05/22 06:43 99 Room Air 09/05/22 03:36 98 Room Air Laboratory Results Short CBC 09/04/22 09/05/22 Range/Units 16:58 04:38 WBC 3.26 L (4.8-10.8) K/ul Hgb 8.1 L 6.9 L* (14.0-18.0) g/dl Hct 24.3 L 20.8 L* (40.1-51.0) % Plt Count 74 L (130-400) K/uL BMP 09/05/22 04:38 Sodium 140 Potassium 3.8 Chloride 113 H Carbon Dioxide 21 BUN 33 H Creatinine 1.22 D Glucose 131 H Calcium 7.8 L Liver Function 09/05/22 Range/Units 04:38 Total Bilirubin 2.6 H (0.2-1.0) mg/dl Direct Bilirubin 0.6 H (0-0.2) mg/dl AST 34 (13-39) U/L ALT 18 (7-52) U/L Alkaline Phosphatase 148 H (34-104) U/L Albumin 2.3 L (3.4-5.0) gm/dl Medications Administered Current Inpatient Medications Allopurinol (Allopurinol 100 Mg Tab) 100 mg PO BID JODI Stop: 09/28/22 09:44 Last Admin: 09/05/22 08:06 Dose: 100 mg Citalopram Hydrobromide (Citalopram 20 Mg Tab) 10 mg PO QAM JODI Stop: 09/28/22 09:44 Last Admin: 09/05/22 08:06 Dose: 10 mg Dextrose (Dextrose 50% 50 Ml Syringe) 25 - 50 ml IV UD PRN; Protocol PRN Reason: Hypoglycemia Protocol Stop: 09/26/22 13:34 Ferrous Sulfate (Ferrous Sulfate 325 Mg Tab) 325 mg PO BID JODI Stop: 09/28/22 09:44 Last Admin: 09/05/22 08:07 Dose: 325 mg Finasteride (Finasteride 5 Mg Tab) 5 mg PO QAM JODI Stop: 09/28/22 09:44 Last Admin: 09/05/22 08:07 Dose: 5 mg Furosemide (Furosemide 20 Mg Tab) 20 mg PO QAM JODI Stop: 09/30/22 18:14 Last Admin: 09/05/22 08:07 Dose: 20 mg Glucagon (Glucagon For Inj 1 Mg Vial) 1 mg SQ UD PRN; Protocol PRN Reason: Hypoglycemia Protocol Stop: 09/26/22 13:34 Glucose (Glucose 40% Gel 15 Gm Tube) 15 - 30 gm PO UD PRN; Protocol PRN Reason: Hypoglycemia Protocol Stop: 09/26/22 13:34 Glucose (Glucose 10 Tab/Tube) 4 - 8 tab PO UD PRN; Protocol PRN Reason: Hypoglycemia Treatment Stop: 09/26/22 13:34 Pantoprazole Sodium 40 mg/ (Syringe) 10 mls @ 5 mls/min IV BID JODI Stop: 09/26/22 20:59 Last Admin: 09/05/22 08:06 Dose: 5 mls/min Sodium Chloride (Nss) 250 mls @ 15 mls/hr IV .[id number] PRN PRN Reason: For Transfusion Stop: 09/05/22 15:53 Insulin Aspart (Insulin Aspart Per Unit) 0 units SC ACHS JODI Stop: 09/26/22 16:29 Last Admin: 09/05/22 12:54 Dose: 4 units Insulin Glargine (Lantus Per Unit Charge) 7 units SQ BID JODI Stop: 09/26/22 20:59 Last Admin: 09/05/22 08:20 Dose: 7 units Lactulose (Lactulose Syrup 20 Gm/30 Ml Udc) 20 gm PO TID JODI Stop: 09/27/22 08:59 Last Admin: 09/05/22 08:06 Dose: 20 gm Lactulose (Lactulose 200gm/700ml Wtr Enema) 200 gm GA Q6H JODI Stop: 10/04/22 09:59 Last Admin: 09/05/22 12:56 Dose: 200 gm Mirtazapine (Mirtazapine Tab 15 Mg Tab) 30 mg PO HS JODI Stop: 09/28/22 20:59 Last Admin: 09/04/22 22:26 Dose: 30 mg Miscellaneous (Carbohydrates For Hypoglycemia ) 15 - 30 gm PO UD PRN PRN Reason: Hypoglycemia Protocol Stop: 09/26/22 13:34 Rifaximin (Rifaximin 550 Mg Tablet) 550 mg PO BID JODI Stop: 09/27/22 08:59 Last Admin: 09/05/22 08:06 Dose: 550 mg Spironolactone (Spironolactone 25 Mg Tab) 25 mg PO [facility] Stop: 09/30/22 18:14 Last Admin: 09/05/22 08:07 Dose: 25 mg Zinc Sulfate (Zinc Sulfate 220 Mg Capsule) 220 mg PO [facility] Stop: 10/04/22 12:59 Last Admin: 09/05/22 08:07 Dose: 220 mg (1) GERD (gastroesophageal reflux disease) Esophagitis presence: esophagitis presence not specified Qualified Code(s): K21.9 - Gastro-esophageal reflux disease without esophagitis
[2022-09-05] MEDS: MIRTAZAPINE TAB 15 MG TAB PO SCH (20:11)
[2022-09-06] MEDS: LACTULOSE 200GM/700ML WTR ENEMA PR SCH ×2 (04:42→09:57)
[2022-09-06] MEDS: LACTULOSE SYRUP 20 GM/30 ML UDC PO SCH ×3 (07:40→17:40)
[2022-09-06] MEDS: SPIRONOLACTONE 25 MG TAB PO SCH (07:40)
[2022-09-06] MEDS: PANTOprazole 40 MG in SYRINGE 0 ML IV SCH ×2 (07:40→20:39)
[2022-09-06] MEDS: CITALOPRAM 20 MG TAB PO SCH (07:41)
[2022-09-06] MEDS: rifAXIMin 550 MG TABLET PO SCH ×2 (07:42→20:40)
[2022-09-06 07:43] LABS: Hematocrit (blood only) 24.3 % (40.1-51.0); Hemoglobin 8.2 g/dl (14.0-18.0); Mean Platelet Volume 10.8 fL (9.4-12.4); Platelet Count 70 K/uL (130-400); White Blood Count 3.63 K/ul (4.8-10.8)
[2022-09-06] MEDS: FERROUS SULFATE 325 MG TAB PO SCH ×2 (07:43→20:40)
[2022-09-06] MEDS: allopurinoL 100 MG TAB PO SCH ×2 (07:43→20:40)
[2022-09-06] MEDS: ZINC SULFATE 220 MG CAPSULE PO SCH (07:43)
[2022-09-06] MEDS: FUROSEMIDE 20 MG TAB PO SCH (07:43)
[2022-09-06] MEDS: FINASTERIDE 5 MG TAB PO SCH (07:43)
[2022-09-06 07:45] LABS: Mean Corpuscular Hemoglobin 33.3 pg (25.0-34.0); Mean Corpuscular Hgb Conc 33.7 g/dL (32.0-36.0); Mean Corpuscular Volume 98.8 fL (80.0-100.0); RDW Standard Deviation 70.7 fL (36.4-46.3); Red Blood Count 2.46 M/uL (4.63-6.08)
[2022-09-06] MEDS: LANTUS PER UNIT CHARGE SQ SCH ×2 (07:57→20:44)
[2022-09-06] MEDS: INSULIN ASPART PER UNIT SC SCH ×4 (07:57→20:43)
[2022-09-06 08:01] LABS: BUN Creatinine Ratio 24.1 (10-20); Calcium 7.9 mg/dl (8.5-10.1); Creatinine Clr Calc Pharmacy 53.7 ml/min; Est GFR (African American) 61.5 ml/min; Potassium 3.6 mmol/L (3.5-5.1)
[2022-09-06] MEDS ORDERED: LACTULOSE 200GM/700ML WTR ENEMA PR PRN (11:00)
--- NOTE | 2022-09-06 14:06 | Hospitalist Progress Note ---
Date of Service September 06, 2022 Assessment & Plan (1) Hepatic encephalopathy: Plan: He is with FOFANA cirrhosis and was admitted with worsening confusion over the last few days with elevated ammonia level. Initial sign out that pt was refusing to take Lactulose as prescribed but upon further investigation, staff at [facility] report that pt has not been missing doses yet remains more confused. - Lactulose enemas until less confused and can safely take po - Consult GI - appreciate recommendations-MELD SCORE 16 ON 08/29 -Initial head CT showed:IMPRESSION: 1. No acute intracranial hemorrhage or mass effect. 2. White matter hypodensities. These may reflect small vessel disease however appear increased since head CT of August 02, 2022 and are therefore indeterminate. An MRI of the brain could be obtained for further evaluation. 3. Nonspecific pontine hypodensity which can also be assessed on MRI. -Repeat CT -no acute process -No definitive source of infection. Blood and urine cultures are negative -Ammonia level is noted to be high at 101 yesterday and it has been coming down as of this morning to 72 -We will give lactulose as needed to maintain bowel movements about 2-3 a day -Has had more confusion last night and the ammonia level is just above 100 -Received lactulose enema and seems to much better this morning -Minimal dysarthria but otherwise no more confusion and he has been feeling much better -Noted to be very confused last night-has been confused at night more than during daytime -ABG did show respiratory alkalosis and hemoglobin was down to 6.9 early this morning with ammonia level remained at 155 -Clinically much better but the lactulose enema is coming back right away without any meaningful bowel movement -We will change lactulose enema as needed and the increase the frequency of oral lactulose to have meaningful bowel movements of about 3-5 a day -She remains lethargic but not much confused today (2) Anemia: Plan: Suspect multifactorial due to chronic disease and ongoing blood loss in the setting of 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 and ongoing hematuria - Since repeat Hgb in the ED was 7.6, will hold transfusion for now - repeat H&H tonight - Appreciate GI input regarding need for possible repeat scope pending worsening rectal bleeding -Hemoglobin decreased to 6.6 and received 1 unit of blood transfusion -Denies any more rectal bleeding -Hemoglobin remained stable and more than 8 -Hematuria seems to be lessening -Hemoglobin went up to 8.1 after receiving 1 unit of blood transfusion -We will monitor CBC (3) Hematuria: Plan: He was noted to have hematuria Likely secondary to history of prostate cancer status postradiation Kan catheter in place and the urine is seems to be dark-colored without any yannick hematuria Appreciate urology input and recommendation Hemoglobin remained stable at 8.1 today 09/02/2022 Hematuria seems to be worsening-was seen by urologist and signed off We will observe for now-has been improving (4) 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 (5) Pancytopenia: Plan: Secondary to cirrhosis (6) T2DM (type 2 diabetes mellitus): Plan: Insulin-requiring - last A1c on 07/27 was 9.1 - Continue Lantus for basal, insulin sliding scale Hold while patient is n.p.o., with poor intake (7) Prostate cancer: (8) CKD (chronic kidney disease) stage 3, GFR 30-59 ml/min: Plan: Kidney function remains stable at creatinine level of 1.45 (9) GERD (gastroesophageal reflux disease): Plan DVT Prophylaxis: SCDs in view of anemia, chronic blood loss Code Status: Full code Disposition Anticipate discharge to [facility] when patient is medically stable Has been having episodes of confusion especially at nighttime associated with decreasing H&H Not ready to be discharged Awaiting transfer to [facility] or SNF Admission and Anticipated Discharge Date Admission Date: August 27, 2022 Subjective 09/02/2022 The patient was seen and examined in telemetry unit He has been feeling much better and has had a few bowel movements last night Only 1 bowel movement this morning and lactulose will be given as needed No more confusion and denies any other significant symptoms 09/03/2022 The patient was seen and examined in telemetry unit He was noted to be more confused last night and ammonia level loss more than 100 Lactulose enema was given and this morning he is feeling much better Complains of weakness but denies any other symptoms 09/04/2022 The patient was seen and examined in telemetry unit He has not had any bowel movement since this morning Denies any abdominal pain, distention, nausea and or vomiting Now he is having hematuria and the hemoglobin is dropping Not confused even though the ammonia level has gone up to 157 09/05/2022 The patient was seen and examined in telemetry unit He was noted to be very confused last night Stat blood test did show that his ammonia level was high at 155 and his hemoglobin was down to 6.9 He has been feeling much better this morning Only has 1 bowel movement since this morning Generally weak but denies any other significant symptoms 09/06/2022 The patient was seen and examined in telemetry unit He has been little better today but has not have any significant bowel movement His lactulose enema is coming back right away so that are changed to as needed and regular doses of lactulose orally with increased frequency has been started Hematuria persisting but seems to be decreased Review of Systems Review of Systems: All systems reviewed and are unremarkable except as noted below Neurologic: Alert, awake and oriented x3. Generally weak Physical Exam Physical Exam: Lying in bed without any acute distress Constitutional: well developed, well nourished, + ill appearing and average body habitus Eyes: PERRL, conjunctivae normal, anicteric sclerae ENMT: external ear and nose normal, oropharynx normal Neck: trachea midline, no thyromegaly Respiratory: no respiratory distress Auscultation: lungs clear to auscultation bilaterally Cardiovascular: Rate/Rhythm: regular rate and regular rhythm; not tachycardic Heart Sounds: normal S1 and normal S2; no murmur Extremities: + edema (Trace to no edema bilaterally) Gastrointestinal (Abdomen): Inspection/Auscultation: normal bowel sounds; abdomen not distended Percussion/Palpation: abdomen soft; abdomen nontender Musculoskeletal: No acute arthritis involving any joint Neurologic: normal touch/pain/proprioception and moves all extremities; no focal motor deficits Speech / Cognition: + anomia (Was 155.0 as of 09/05/2022) Lymphatic: no cervical or axillary lymphadenopathy Results & Data Results & Data ([facility]) Vital Signs (Past 12 Hours) Vital Signs Temp Pulse Pulse Resp BP BP Pulse Ox 09/06/22 11:32 36.5 C 85 17 120/74 100 09/06/22 06:15 62 09/06/22 07:37 36.5 C 68 16 139/64 99 09/06/22 03:00 37.1 C 63 18 107/48 L 100 O2 Del Method 09/06/22 11:32 Room Air 09/06/22 06:15 09/06/22 07:37 Room Air 09/06/22 03:00 Room Air Laboratory Results Short CBC 09/06/22 Range/Units 07:25 WBC 3.63 L (4.8-10.8) K/ul Hgb 8.2 L (14.0-18.0) g/dl Hct 24.3 L (40.1-51.0) % Plt Count 70 L (130-400) K/uL BMP 09/06/22 07:25 Sodium 140 Potassium 3.6 Chloride 113 H Carbon Dioxide 19 L BUN 32 H Creatinine 1.33 Glucose 140 H Calcium 7.9 L Medications Administered Current Inpatient Medications Allopurinol (Allopurinol 100 Mg Tab) 100 mg PO BID JODI Stop: 09/28/22 09:44 Last Admin: 09/06/22 07:43 Dose: 100 mg Citalopram Hydrobromide (Citalopram 20 Mg Tab) 10 mg PO QAM JODI Stop: 09/28/22 09:44 Last Admin: 09/06/22 07:41 Dose: 10 mg Dextrose (Dextrose 50% 50 Ml Syringe) 25 - 50 ml IV UD PRN; Protocol PRN Reason: Hypoglycemia Protocol Stop: 09/26/22 13:34 Ferrous Sulfate (Ferrous Sulfate 325 Mg Tab) 325 mg PO BID JODI Stop: 09/28/22 09:44 Last Admin: 09/06/22 07:43 Dose: 325 mg Finasteride (Finasteride 5 Mg Tab) 5 mg PO QAM JODI Stop: 09/28/22 09:44 Last Admin: 09/06/22 07:43 Dose: 5 mg Furosemide (Furosemide 20 Mg Tab) 20 mg PO QAM JODI Stop: 09/30/22 18:14 Last Admin: 09/06/22 07:43 Dose: 20 mg Glucagon (Glucagon For Inj 1 Mg Vial) 1 mg SQ UD PRN; Protocol PRN Reason: Hypoglycemia Protocol Stop: 09/26/22 13:34 Glucose (Glucose 40% Gel 15 Gm Tube) 15 - 30 gm PO UD PRN; Protocol PRN Reason: Hypoglycemia Protocol Stop: 09/26/22 13:34 Glucose (Glucose 10 Tab/Tube) 4 - 8 tab PO UD PRN; Protocol PRN Reason: Hypoglycemia Treatment Stop: 09/26/22 13:34 Pantoprazole Sodium 40 mg/ (Syringe) 10 mls @ 5 mls/min IV BID JODI Stop: 09/26/22 20:59 Last Admin: 09/06/22 07:40 Dose: 5 mls/min Insulin Aspart (Insulin Aspart Per Unit) 0 units SC ACHS JODI Stop: 09/26/22 16:29 Last Admin: 09/06/22 12:50 Dose: 5 units Insulin Glargine (Lantus Per Unit Charge) 7 units SQ BID JODI Stop: 09/26/22 20:59 Last Admin: 09/06/22 07:57 Dose: 7 units Lactulose (Lactulose Syrup 20 Gm/30 Ml Udc) 20 gm PO Q6HWA JODI Stop: 10/06/22 11:59 Last Admin: 09/06/22 12:51 Dose: 20 gm Lactulose (Lactulose 200gm/700ml Wtr Enema) 200 gm TN Q6H PRN PRN Reason: Constipation Stop: 10/04/22 09:59 Mirtazapine (Mirtazapine Tab 15 Mg Tab) 30 mg PO HS JODI Stop: 09/28/22 20:59 Last Admin: 09/05/22 20:11 Dose: 30 mg Miscellaneous (Carbohydrates For Hypoglycemia ) 15 - 30 gm PO UD PRN PRN Reason: Hypoglycemia Protocol Stop: 09/26/22 13:34 Rifaximin (Rifaximin 550 Mg Tablet) 550 mg PO BID [facility] Stop: 09/27/22 08:59 Last Admin: 09/06/22 07:42 Dose: 550 mg Spironolactone (Spironolactone 25 Mg Tab) 25 mg PO QAM [facility] Stop: 09/30/22 18:14 Last Admin: 09/06/22 07:40 Dose: 25 mg Zinc Sulfate (Zinc Sulfate 220 Mg Capsule) 220 mg PO QAM [facility] Stop: 10/04/22 12:59 Last Admin: 09/06/22 07:43 Dose: 220 mg (1) GERD (gastroesophageal reflux disease) Esophagitis presence: esophagitis presence not specified Qualified Code(s): K21.9 - Gastro-esophageal reflux disease without esophagitis
[2022-09-06] MEDS: MIRTAZAPINE TAB 15 MG TAB PO SCH (20:40)
[2022-09-07] MEDS: LACTULOSE SYRUP 20 GM/30 ML UDC PO SCH ×2 (00:04→01:38)
--- NOTE | 2022-09-07 00:20 | Communication Note ---
Date of Service: September 07, 2022 Notified by RN of patient unresponsiveness. Patient not finishing sentences at onset of mold shifter as per RN. Serum ammonia 220s Serum Crea 1.57 AP Worsening hepatic encephalopathy Rule out UTI as precipitant ARF Lactulose enema while patient unable to take p.o. meds safely Check UA IV albumin, hold diuretics until creatinine back to baseline Hold patient Remeron to patient more awake. Request AM provider to update GI Will relay to AM provider.
[2022-09-07 00:46] LABS: Basophils # (auto) 0.01 K/uL (0-0.2); Basophils % (auto) 0.3 %; Eosinophils # (auto) 0.16 K/uL (0-0.50); Eosinophils % (auto) 4.5 %; Hematocrit (blood only) 24.4 % (40.1-51.0); Hemoglobin 8.2 g/dl (14.0-18.0); Immature Granulocytes # (auto) 0.01 K/uL (0.00-0.02); Immature Granulocytes % (auto) 0.3 %; Lymphocytes # (auto) 0.71 K/uL (1.2-3.4); Lymphocytes % (auto) 19.8 %; Mean Platelet Volume 11.1 fL (9.4-12.4); Monocytes # (auto) 0.28 K/uL (0.24-0.82); Monocytes % (auto) 7.8 %; Neutrophils # (auto) 2.42 K/uL (1.4-6.5); Neutrophils % (auto) 67.3 %; Platelet Count 76 K/uL (130-400); White Blood Count 3.59 K/ul (4.8-10.8)
[2022-09-07 01:08] LABS: Echinocytes 1+; Mean Corpuscular Hemoglobin 32.5 pg (25.0-34.0); Mean Corpuscular Hgb Conc 33.6 g/dL (32.0-36.0); Mean Corpuscular Volume 96.8 fL (80.0-100.0); RDW Coefficient of Variation 19.8 % (11.5-14.5); RDW Standard Deviation 68.3 fL (36.4-46.3); Red Blood Count 2.52 M/uL (4.63-6.08); Tear Drop Cells 1+
[2022-09-07 01:11] LABS: Albumin Globulin Ratio 1.1 (0.9-2); Albumin Level 2.7 gm/dl (3.4-5.0); BUN Creatinine Ratio 21.7 (10-20); Bilirubin,Total 3.3 mg/dl (0.2-1.0); Creatinine Clr Calc Pharmacy 45.5 ml/min; Est GFR (African American) 50.3 ml/min; Est GFR (Non-African American) 43.4 ml/min; Globulin 2.5 gm/dl (2.5-4.0); Magnesium 1.7 mg/dl (1.7-2.4); Potassium 3.9 mmol/L (3.5-5.1); Total Protein 5.2 gm/dl (6.0-8.3)
[2022-09-07] MEDS ORDERED: ALBUMIN 25% 100 mL 25 GM/100 ML VIAL IV ONE (01:16)
[2022-09-07 01:38] LABS: Appearance Urine Turbid (Clear); Bacteria Urine Automated 1+ (Negative); Blood Urine 3+ (Negative); Color Urine Orange; Glucose Urine UA Negative (Negative); Ketones Urine Trace (Negative); Leukocyte Esterase Urine 2+ (Negative); Nitrite Urine Positive (Negative); Protein Urine 2+ (Negative); RBC Urine Automated >30 /hpf (0-4); Specific Gravity Urine 1.022 (1.000-1.030); Urobilinogen Urine Positive (Negative); pH Urine 5.5 (4.5-7.5)
[2022-09-07 01:42] LABS: Bilirubin Urine 1+ (Negative)
[2022-09-07] MEDS: LACTULOSE 200GM/700ML WTR ENEMA PR SCH ×3 (01:59→18:32)
[2022-09-07] MEDS: CEFEPIME 1,000 MG in SYRINGE 0 ML IV SCH ×2 (02:23→15:30)
[2022-09-07] MEDS: INSULIN ASPART PER UNIT SC SCH ×4 (08:17→20:07)
[2022-09-07] MEDS: LANTUS PER UNIT CHARGE SQ SCH ×2 (08:55→20:13)
[2022-09-07] MEDS: PANTOprazole 40 MG in SYRINGE 0 ML IV SCH (08:59)
--- NOTE | 2022-09-07 09:30 | Gastroenterology Progress Note ---
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 Hx of radiation proctitis w BRBPR though no yannick rectal bleeding at this time per RN report. He has been refusing his lactulose in the last 1-2 days. Ammonia level is elevated Pt with prolonged admission, last evening noted to be confused, unable to complete full sentences, ammonia repeat and elevated at 221 Last EGD 08/21/22 - Grade I varices, GAVE Last sigmoidscopy 04/2022 - APC of radiation proctitis, hemorrhoids - Would repeat blood cultures, urine cultures - Check Chest XR - ABD US, although no ascites appreciated on examination - Consider repeat head CT vs MRI - Lactulose 20g PO TID; Xifaxan 550mg BID to produce BM 3-5 daily, review documentation, does not appear he is moving his bowels daily - If unable to tolerate PO, lactulose enemas Thank you for allowing us to participate in the care of this patient. Please call with any acute changes, questions or concerns. Please see addendum below with additional recommendation from my supervising physician. (2) Anemia: (3) Hepatic encephalopathy: Admission and Anticipated Discharge Date Admission Date: August 27, 2022 Supervising Physician Co-Signing Physician Notes I have personally seen and examined the patient with JEFF Hussein. Her note reflects my exam and findings. I agree with her impression and plan. Taking some oral nutrition. Andrea Sosa M.D. Subjective Pt was seen and evaluated, chart reviewed. GI asked to re-eval for confusion. This AM he is awake, respond to his name and answering questions with yes/no History if limited. Denies pain, nausea, vomiting. Review of Systems Constitutional: Unable to obtain ROS, pt is confused, able to tell me name Physical Exam Constitutional: WD/WN, vitals as above Neck: trachea midline Respiratory: normal respiratory effort Cardiovascular: Rate/Rhythm: regular rate Gastrointestinal (Abdomen): normal bowel sounds, soft, nontender, no hepatosplenomegaly No ascites Skin: no rashes, warm and dry Results & Data ([facility]) Vital Signs (Past 12 Hours) Vital Signs Temp Pulse Pulse Pulse Resp BP BP 10/07/22 07:37 36.3 C L 78 17 165/72 H 09/07/22 03:08 36.5 C 64 18 122/57 L 09/07/22 01:35 36.5 C 66 18 143/61 H 09/06/22 23:58 36.7 C 68 18 151/71 H 09/06/22 23:01 70 Pulse Ox O2 Del Method 09/07/22 07:37 99 Room Air 09/07/22 03:08 99 Room Air 09/07/22 01:35 97 Room Air 09/06/22 23:58 98 Room Air 09/06/22 23:01 Laboratory Results 09/07/22 09/07/22 09/07/22 Range/Units Unknown 07:39 00:33 WBC (4.8-10.8) K/ul RBC (4.63-6.08) M/uL Hgb (14.0-18.0) g/dl Hct (40.1-51.0) % MCV (80.0-100.0) fL MCH (25.0-34.0) pg MCHC (32.0-36.0) g/dL RDW Std Deviation (36.4-46.3) fL RDW Coeff of Violetta (11.5-14.5) % Plt Count (130-400) K/uL MPV (9.4-12.4) fL Immature Gran % (Auto) % Neut % (Auto) % Lymph % (Auto) % [place] % (Auto) % Eos % (Auto) % Baso % (Auto) % Neut # (Auto) (1.4-6.5) K/uL Lymph # (Auto) (1.2-3.4) K/uL [place] # (Auto) (0.24-0.82) K/uL Eos # (Auto) (0-0.50) K/uL Baso # (Auto) (0-0.2) K/uL Immature Gran # (Auto) (0.00-0.02) K/uL Tear Drop Cells Echinocytes Sodium 140 (136-145) mmol/L Potassium 3.9 (3.5-5.1) mmol/L Chloride 112 H (98-107) mmol/L Carbon Dioxide 19 L (21-32) mmol/L Anion Gap 9 (3-11) BUN 34 H (6-23) mg/dl Creatinine 1.57 H (0.6-1.4) mg/dl Est Cr Clr Drug Dosing 45.5 ml/min Est GFR ( Amer) 50.3 ml/min Est GFR (Non-Af Amer) 43.4 ml/min BUN/Creatinine Ratio 21.7 H (10-20) Glucose 161 H (70-99(Fasting)) mg/dl POC Glucose 133 H (70-99) mg/dl Calcium 8.0 L (8.5-10.1) mg/dl Magnesium 1.7 (1.7-2.4) mg/dl Total Bilirubin 3.3 H (0.2-1.0) mg/dl AST 39 (13-39) U/L ALT 21 (7-52) U/L Alkaline Phosphatase 167 H (34-104) U/L Ammonia (18-72) umol/L Total Protein 5.2 L (6.0-8.3) gm/dl Albumin 2.7 L (3.4-5.0) gm/dl Globulin 2.5 (2.5-4.0) gm/dl Albumin/Globulin Ratio 1.1 (0.9-2) Urine Color [place] Urine Appearance Turbid A (Clear) Urine pH 5.5 (4.5-7.5) Ur Specific [place] 1.022 (1.000-1.030) Urine Protein 2+ H (Negative) Urine Glucose (UA) Negative (Negative) Urine Ketones Trace H (Negative) Urine Blood 3+ H (Negative) Urine Nitrite Positive A (Negative) Urine Bilirubin 1+ H (Negative) Urine Urobilinogen Positive H (Negative) Ur Leukocyte Esterase 2+ H (Negative) Urine WBC (Auto) 10-30 H (0-5) /hpf Urine RBC (Auto) >30 H (0-4) /hpf U Hyaline Cast (Auto) 1-5 (0-5) /lpf U Epithel Cells (Auto) 5-10 H (0-5) /lpf Urine Bacteria (Auto) 1+ H (Negative) 09/07/22 09/07/22 09/07/22 Range/Units 00:33 00:33 00:08 WBC 3.59 L (4.8-10.8) K/ul RBC 2.52 L (4.63-6.08) M/uL Hgb 8.2 L (14.0-18.0) g/dl Hct 24.4 L (40.1-51.0) % MCV 96.8 (80.0-100.0) fL MCH 32.5 (25.0-34.0) pg MCHC 33.6 (32.0-36.0) g/dL RDW Std Deviation 68.3 H (36.4-46.3) fL RDW Coeff of Violetta 19.8 H (11.5-14.5) % Plt Count 76 L (130-400) K/uL MPV 11.1 (9.4-12.4) fL Immature Gran % (Auto) 0.3 % Neut % (Auto) 67.3 % Lymph % (Auto) 19.8 % [place] % (Auto) 7.8 % Eos % (Auto) 4.5 % Baso % (Auto) 0.3 % Neut # (Auto) 2.42 (1.4-6.5) K/uL Lymph # (Auto) 0.71 L (1.2-3.4) K/uL [place] # (Auto) 0.28 (0.24-0.82) K/uL Eos # (Auto) 0.16 (0-0.50) K/uL Baso # (Auto) 0.01 (0-0.2) K/uL Immature Gran # (Auto) 0.01 (0.00-0.02) K/uL Tear Drop Cells 1+ Echinocytes 1+ Sodium (136-145) mmol/L Potassium (3.5-5.1) mmol/L Chloride (98-107) mmol/L Carbon Dioxide (21-32) mmol/L Anion Gap (3-11) BUN (6-23) mg/dl Creatinine (0.6-1.4) mg/dl Est Cr Clr Drug Dosing ml/min Est GFR ( Amer) ml/min Est GFR (Non-Af Amer) ml/min BUN/Creatinine Ratio (10-20) Glucose (70-99(Fasting)) mg/dl POC Glucose 175 H (70-99) mg/dl Calcium (8.5-10.1) mg/dl Magnesium (1.7-2.4) mg/dl Total Bilirubin (0.2-1.0) mg/dl AST (13-39) U/L ALT (7-52) U/L Alkaline Phosphatase (34-104) U/L Ammonia 221.0 H (18-72) umol/L Total Protein (6.0-8.3) gm/dl Albumin (3.4-5.0) gm/dl Globulin (2.5-4.0) gm/dl Albumin/Globulin Ratio (0.9-2) Urine Color Urine Appearance (Clear) Urine pH (4.5-7.5) Ur Specific [place] (1.000-1.030) Urine Protein (Negative) Urine Glucose (UA) (Negative) Urine Ketones (Negative) Urine Blood (Negative) Urine Nitrite (Negative) Urine Bilirubin (Negative) Urine Urobilinogen (Negative) Ur Leukocyte Esterase (Negative) Urine WBC (Auto) (0-5) /hpf Urine RBC (Auto) (0-4) /hpf U Hyaline Cast (Auto) (0-5) /lpf U Epithel Cells (Auto) (0-5) /lpf Urine Bacteria (Auto) (Negative) 09/06/22 09/06/22 09/06/22 Range/Units 20:38 16:12 11:33 WBC (4.8-10.8) K/ul RBC (4.63-6.08) M/uL Hgb (14.0-18.0) g/dl Hct (40.1-51.0) % MCV (80.0-100.0) fL MCH (25.0-34.0) pg MCHC (32.0-36.0) g/dL RDW Std Deviation (36.4-46.3) fL RDW Coeff of Violetta (11.5-14.5) % Plt Count (130-400) K/uL MPV (9.4-12.4) fL Immature Gran % (Auto) % Neut % (Auto) % Lymph % (Auto) % [place] % (Auto) % Eos % (Auto) % Baso % (Auto) % Neut # (Auto) (1.4-6.5) K/uL Lymph # (Auto) (1.2-3.4) K/uL [place] # (Auto) (0.24-0.82) K/uL Eos # (Auto) (0-0.50) K/uL Baso # (Auto) (0-0.2) K/uL Immature Gran # (Auto) (0.00-0.02) K/uL Tear Drop Cells Echinocytes Sodium (136-145) mmol/L Potassium (3.5-5.1) mmol/L Chloride (98-107) mmol/L Carbon Dioxide (21-32) mmol/L Anion Gap (3-11) BUN (6-23) mg/dl Creatinine (0.6-1.4) mg/dl Est Cr Clr Drug Dosing ml/min Est GFR ( Amer) ml/min Est GFR (Non-Af Amer) ml/min BUN/Creatinine Ratio (10-20) Glucose (70-99(Fasting)) mg/dl POC Glucose 222 H 172 H 153 H (70-99) mg/dl Calcium (8.5-10.1) mg/dl Magnesium (1.7-2.4) mg/dl Total Bilirubin (0.2-1.0) mg/dl AST (13-39) U/L ALT (7-52) U/L Alkaline Phosphatase (34-104) U/L Ammonia (18-72) umol/L Total Protein (6.0-8.3) gm/dl Albumin (3.4-5.0) gm/dl Globulin (2.5-4.0) gm/dl Albumin/Globulin Ratio (0.9-2) Urine Color Urine Appearance (Clear) Urine pH (4.5-7.5) Ur Specific [place] (1.000-1.030) Urine Protein (Negative) Urine Glucose (UA) (Negative) Urine Ketones (Negative) Urine Blood (Negative) Urine Nitrite (Negative) Urine Bilirubin (Negative) Urine Urobilinogen (Negative) Ur Leukocyte Esterase (Negative) Urine WBC (Auto) (0-5) /hpf Urine RBC (Auto) (0-4) /hpf U Hyaline Cast (Auto) (0-5) /lpf U Epithel Cells (Auto) (0-5) /lpf Urine Bacteria (Auto) (Negative)
[2022-09-07] MEDS: FINASTERIDE 5 MG TAB PO SCH (10:34)
[2022-09-07] MEDS: allopurinoL 100 MG TAB PO SCH ×2 (10:34→20:07)
[2022-09-07] MEDS: CITALOPRAM 20 MG TAB PO SCH (10:34)
[2022-09-07] MEDS: rifAXIMin 550 MG TABLET PO SCH ×2 (10:34→20:07)
[2022-09-07] MEDS: FERROUS SULFATE 325 MG TAB PO SCH ×2 (10:34→20:07)
[2022-09-07] MEDS: ZINC SULFATE 220 MG CAPSULE PO SCH (10:35)
--- NOTE | 2022-09-07 15:08 | XRay Report ---
XR chest 1V portable HISTORY: hepatic encephalopathy COMPARISON: Chest 08/27/2022. FINDINGS: Cardiac silhouette is top normal in size. There are low lung volumes. No pleural effusions. No pneumothorax. Overlying cardiac leads. IMPRESSION: No acute process. ACT 112: Negative or not required by law. Electronically signed by: Abdoul Gonzalez M.D. 09/07/2022 3:07 PM
--- NOTE | 2022-09-07 17:03 | Hospitalist Progress Note ---
Date of Service September 07, 2022 Assessment & Plan (1) Hepatic encephalopathy: Plan: per Dr. Avalos's notes with addendum: He is with FOFANA cirrhosis and was admitted with worsening confusion over the last few days with elevated ammonia level. Initial sign out that pt was refusing to take Lactulose as prescribed but upon further investigation, staff at [facility] report that pt has not been missing doses yet remains more confused. - Lactulose enemas until less confused and can safely take po - Consult GI - appreciate recommendations-MELD SCORE 16 ON 08/29 -Initial head CT showed:IMPRESSION: 1. No acute intracranial hemorrhage or mass effect. 2. White matter hypodensities. These may reflect small vessel disease however appear increased since head CT of August 02, 2022 and are therefore indeterminate. An MRI of the brain could be obtained for further evaluation. 3. Nonspecific pontine hypodensity which can also be assessed on MRI. -Repeat CT -no acute process -No definitive source of infection. Blood and urine cultures are negative -Ammonia level is noted to be high at 101 yesterday and it has been coming down as of this morning to 72 -We will give lactulose as needed to maintain bowel movements about 2-3 a day -Has had more confusion last night and the ammonia level is just above 100 -Received lactulose enema and seems to much better this morning -Minimal dysarthria but otherwise no more confusion and he has been feeling much better -Noted to be very confused last night-has been confused at night more than during daytime -ABG did show respiratory alkalosis and hemoglobin was down to 6.9 early this morning with ammonia level remained at 155 -Clinically much better but the lactulose enema is coming back right away without any meaningful bowel movement -We will change lactulose enema as needed and the increase the frequency of oral lactulose to have meaningful bowel movements of about 3-5 a day -She remains lethargic but not much confused today 09/07 repeat urine and blood cultures pending will also obtain MRI continue Lactulose enema, Rifaximin (2) Anemia: Plan: Suspect multifactorial due to chronic disease and ongoing blood loss in the setting of 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 and ongoing hematuria - Since repeat Hgb in the ED was 7.6, will hold transfusion for now - repeat H&H tonight - Appreciate GI input regarding need for possible repeat scope pending worsening rectal bleeding -Hemoglobin decreased to 6.6 and received 1 unit of blood transfusion -Denies any more rectal bleeding -Hemoglobin remained stable and more than 8 -Hematuria seems to be lessening -Hemoglobin went up to 8.1 after receiving 1 unit of blood transfusion -We will monitor CBC 09/07 still has pink tinged urine, though Hg stable at 8.2 monitor (3) Hematuria: Plan: He was noted to have hematuria Likely secondary to history of prostate cancer status postradiation Kan catheter in place and the urine is seems to be dark-colored without any yannick hematuria Appreciate urology input and recommendation Hemoglobin remained stable at 8.1 today 09/02/2022 Hematuria seems to be worsening-was seen by urologist and signed off We will observe for now-has been improving 09/07 per above (4) 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 (5) Pancytopenia: Plan: Secondary to cirrhosis (6) T2DM (type 2 diabetes mellitus): Plan: Insulin-requiring - last A1c on 07/27 was 9.1 - Continue Lantus for basal, insulin sliding scale Hold while patient is n.p.o., with poor intake (7) Prostate cancer: (8) CKD (chronic kidney disease) stage 3, GFR 30-59 ml/min: Plan: Kidney function remains stable at creatinine level of 1.5 (9) GERD (gastroesophageal reflux disease): Plan DVT Prophylaxis: SCDs in view of anemia, chronic blood loss Code Status: Full code Disposition Anticipate discharge to [facility] when patient is medically stable Awaiting transfer to [facility] or SNF Admission and Anticipated Discharge Date Admission Date: August 27, 2022 Subjective ff up for hepatic encephalopathy, etc seen resting in bed, comfortable events over night noted somewhat sleepy but easily awakened not oriented but calm, cooperative denies abdominal pain, nausea no chest pain, dyspnea, palpitations, dizziness no other symptoms Review of Systems Review of Systems: all noted and negative except for above Physical Exam Physical Exam: General- oriented x 1, not in distress, speaks in sentences with no effort or accessory muscle use Eyes- anicteric Neck- no JVD Lungs- clear BS bilaterally, no rales/wheezes Heart- normal rate, regular rhythm; no murmurs Abdomen- normal bowel sounds, nondistended, soft, nontender Kan cath in place- pink urine Extremities- no pretibial edema, no calf tenderness Neuro- alert, oriented x 1; no new gross focal neurologic deficits Skin- warm & dry Results & Data Results & Data ([facility]) Vital Signs (Past 12 Hours) Vital Signs Temp Pulse Pulse Resp BP Pulse Ox O2 Del Method 09/07/22 15:17 36.8 C 74 18 122/54 L 100 Room Air 09/07/22 11:27 67 09/07/22 11:12 36.7 C 69 16 119/58 L 100 Room Air 09/07/22 07:37 36.3 C L 78 17 165/72 H 99 Room Air all noted and reviewed including below (1) GERD (gastroesophageal reflux disease) Esophagitis presence: esophagitis presence not specified Qualified Code(s): K21.9 - Gastro-esophageal reflux disease without esophagitis
[2022-09-07] MEDS: PANTOprazole 40 MG TAB PO SCH (20:07)
[2022-09-08] MEDS: LACTULOSE 200GM/700ML WTR ENEMA PR SCH (02:23)
[2022-09-08] MEDS: CEFEPIME 1,000 MG in SYRINGE 0 ML IV SCH ×2 (02:23→14:24)
[2022-09-08 07:49] LABS: Creatinine Clr Calc Pharmacy 43.5 ml/min; Est GFR (African American) 48.1 ml/min; Est GFR (Non-African American) 41.5 ml/min
[2022-09-08] MEDS: INSULIN ASPART PER UNIT SC SCH ×4 (08:03→20:43)
[2022-09-08] MEDS: CITALOPRAM 20 MG TAB PO SCH (09:04)
[2022-09-08] MEDS: allopurinoL 100 MG TAB PO SCH ×2 (09:04→21:20)
[2022-09-08] MEDS: rifAXIMin 550 MG TABLET PO SCH ×2 (09:04→21:20)
[2022-09-08] MEDS: FERROUS SULFATE 325 MG TAB PO SCH ×2 (09:04→21:20)
[2022-09-08] MEDS: ZINC SULFATE 220 MG CAPSULE PO SCH (09:04)
[2022-09-08] MEDS: PANTOprazole 40 MG TAB PO SCH ×2 (09:04→22:16)
[2022-09-08] MEDS: FINASTERIDE 5 MG TAB PO SCH (09:04)
[2022-09-08] MEDS: LANTUS PER UNIT CHARGE SQ SCH ×2 (09:09→21:25)
[2022-09-08 10:03] LABS: Basophils # (auto) 0.01 K/uL (0-0.2); Basophils % (auto) 0.4 %; Eosinophils # (auto) 0.24 K/uL (0-0.50); Hematocrit (blood only) 22.2 % (40.1-51.0); Hemoglobin 7.4 g/dl (14.0-18.0); Immature Granulocytes # (auto) 0.01 K/uL (0.00-0.02); Immature Granulocytes % (auto) 0.4 %; Lymphocytes # (auto) 0.63 K/uL (1.2-3.4); Lymphocytes % (auto) 23.5 %; Mean Platelet Volume 11.3 fL (9.4-12.4); Monocytes # (auto) 0.28 K/uL (0.24-0.82); Monocytes % (auto) 10.4 %; Neutrophils # (auto) 1.51 K/uL (1.4-6.5); Neutrophils % (auto) 56.3 %; Platelet Count 66 K/uL (130-400); White Blood Count 2.68 K/ul (4.8-10.8)
[2022-09-08 10:26] LABS: Anisocytosis Present; Mean Corpuscular Hemoglobin 33.3 pg (25.0-34.0); Mean Corpuscular Hgb Conc 33.3 g/dL (32.0-36.0); Nucleated RBC # (auto) 0.02 K/uL (0-0); Nucleated RBC % (auto) 0.7 %; Polychromasia 1+; RDW Coefficient of Variation 19.8 % (11.5-14.5); RDW Standard Deviation 70.1 fL (36.4-46.3); Red Blood Count 2.22 M/uL (4.63-6.08); Spherocytes 1+; Tear Drop Cells 1+
[2022-09-08] MEDS ORDERED: LACTULOSE 200GM/700ML WTR ENEMA PR SCH (15:15)
--- NOTE | 2022-09-08 15:43 | Gastroenterology Progress Note ---
Date of Service September 08, 2022 Assessment & Plan Admission and Anticipated Discharge Date Admission Date: August 27, 2022 Subjective Pt has no complaint. On laculose 20 q6, xifaxan, zinc. PE: On exam, he is awake but his speech is slow. His thought appears mildly disordered Abd: soft NT Extrem: no edema, no flap No labs today A/p: Cirrhosis, HE - Cont current care. Results & Data ([facility]) Vital Signs (Past 12 Hours) Vital Signs Temp Pulse Pulse Resp BP BP Pulse Ox 09/08/22 11:42 37.2 C 62 17 117/56 L 100 09/08/22 09:00 64 09/08/22 08:07 37.3 C 68 17 99/42 L 98 O2 Del Method 09/08/22 11:42 Room Air 09/08/22 09:00 09/08/22 08:07 Room Air
--- NOTE | 2022-09-08 16:39 | Hospitalist Progress Note ---
Date of Service September 08, 2022 Assessment & Plan (1) Hepatic encephalopathy: Plan: per Dr. Avalos's notes with addendum: He is with FOFANA cirrhosis and was admitted with worsening confusion over the last few days with elevated ammonia level. Initial sign out that pt was refusing to take Lactulose as prescribed but upon further investigation, staff at [facility] report that pt has not been missing doses yet remains more confused. - Lactulose enemas until less confused and can safely take po - Consult GI - appreciate recommendations-MELD SCORE 16 ON 08/29 -Initial head CT showed:IMPRESSION: 1. No acute intracranial hemorrhage or mass effect. 2. White matter hypodensities. These may reflect small vessel disease however appear increased since head CT of August 02, 2022 and are therefore indeterminate. An MRI of the brain could be obtained for further evaluation. 3. Nonspecific pontine hypodensity which can also be assessed on MRI. -Repeat CT -no acute process -No definitive source of infection. Blood and urine cultures are negative -Ammonia level is noted to be high at 101 yesterday and it has been coming down as of this morning to 72 -We will give lactulose as needed to maintain bowel movements about 2-3 a day -Has had more confusion last night and the ammonia level is just above 100 -Received lactulose enema and seems to much better this morning -Minimal dysarthria but otherwise no more confusion and he has been feeling much better -Noted to be very confused last night-has been confused at night more than during daytime -ABG did show respiratory alkalosis and hemoglobin was down to 6.9 early this morning with ammonia level remained at 155 -Clinically much better but the lactulose enema is coming back right away without any meaningful bowel movement -We will change lactulose enema as needed and the increase the frequency of oral lactulose to have meaningful bowel movements of about 3-5 a day -She remains lethargic but not much confused today 09/08: repeat urine and blood cultures pending will also obtain MRI continue Lactulose p.o., Rifaximin (2) Anemia: Plan: Suspect multifactorial due to chronic disease and ongoing blood loss in the setting of 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 and ongoing hematuria - Since repeat Hgb in the ED was 7.6, will hold transfusion for now - repeat H&H tonight - Appreciate GI input regarding need for possible repeat scope pending worsening rectal bleeding -Hemoglobin decreased to 6.6 and received 1 unit of blood transfusion -Denies any more rectal bleeding -Hemoglobin remained stable and more than 8 -Hematuria seems to be lessening -Hemoglobin went up to 8.1 after receiving 1 unit of blood transfusion -We will monitor CBC 09/08 Hemoglobin dropped from 7.4, now 8.2 No signs of GI bleeding Kan catheter output is brown Repeat tomorrow (3) Hematuria: Plan: He was noted to have hematuria Likely secondary to history of prostate cancer status postradiation Kan catheter in place and the urine is seems to be dark-colored without any yannick hematuria Appreciate urology input and recommendation Hemoglobin remained stable at 8.1 today 09/02/2022 Hematuria seems to be worsening-was seen by urologist and signed off We will observe for now-has been improving 09/08 Urine output is brown (4) 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 (5) Pancytopenia: Plan: Secondary to cirrhosis (6) T2DM (type 2 diabetes mellitus): Plan: Insulin-requiring - last A1c on 07/27 was 9.1 - Continue Lantus for basal, insulin sliding scale Hold while patient is n.p.o., with poor intake (7) Prostate cancer: (8) CKD (chronic kidney disease) stage 3, GFR 30-59 ml/min: Plan: Kidney function remains stable at creatinine level of 1.5 (9) GERD (gastroesophageal reflux disease): Plan DVT Prophylaxis: SCDs in view of anemia, chronic blood loss Code Status: Full code Disposition Anticipate discharge to [facility] when patient is medically stable Admission and Anticipated Discharge Date Admission Date: August 27, 2022 Subjective Follow-up for hepatic encephalopathy, etc. Seen resting in bed, sleeping but easily awakened Patient can state his and son's name, but otherwise appears confused today Denies abdominal pain, nausea vomiting, fevers or chills No chest pain, shortness of breath No other symptoms Review of Systems Review of Systems: all noted and negative except for above Physical Exam 2 Physical Exam: General- oriented x 1, not in distress, speaks in sentences with no effort or accessory muscle use Eyes- anicteric Neck- no JVD Lungs- clear BS BL Heart- normal rate, regular rhythm; no murmurs Abdomen- normal bowel sounds, nondistended, soft, nontender Extremities- no pretibial edema, no calf tenderness Kan catheter in place -with brown urine Neuro- alert, oriented x 1; no gross focal neurologic deficits Skin- warm & dry Results & Data Results & Data ([facility]) Vital Signs (Past 12 Hours) Vital Signs Temp Pulse Pulse Resp BP BP Pulse Ox 09/08/22 16:27 63 09/08/22 15:49 36.8 C 65 16 125/53 L 99 09/08/22 11:42 37.2 C 62 17 117/56 L 100 09/08/22 09:00 64 09/08/22 08:07 37.3 C 68 17 99/42 L 98 O2 Del Method 09/08/22 16:27 09/08/22 15:49 Room Air 09/08/22 11:42 Room Air 09/08/22 09:00 09/08/22 08:07 Room Air all noted and reviewed including below (1) GERD (gastroesophageal reflux disease) Esophagitis presence: esophagitis presence not specified Qualified Code(s): K21.9 - Gastro-esophageal reflux disease without esophagitis
[2022-09-08] MEDS: LACTULOSE SYRUP 20 GM/30 ML UDC PO SCH ×2 (17:08→23:38)
--- NOTE | 2022-09-08 18:34 | Hospitalist Progress Note ---
Date of Service September 08, 2022 Assessment & Plan (1) Hepatic encephalopathy: Plan: per Dr. Avalos's notes with addendum: He is with FOFANA cirrhosis and was admitted with worsening confusion over the last few days with elevated ammonia level. Initial sign out that pt was refusing to take Lactulose as prescribed but upon further investigation, staff at [facility] report that pt has not been missing doses yet remains more confused. - Lactulose enemas until less confused and can safely take po - Consult GI - appreciate recommendations-MELD SCORE 16 ON 08/29 -Initial head CT showed:IMPRESSION: 1. No acute intracranial hemorrhage or mass effect. 2. White matter hypodensities. These may reflect small vessel disease however appear increased since head CT of August 02, 2022 and are therefore indeterminate. An MRI of the brain could be obtained for further evaluation. 3. Nonspecific pontine hypodensity which can also be assessed on MRI. -Repeat CT -no acute process -No definitive source of infection. Blood and urine cultures are negative -Ammonia level is noted to be high at 101 yesterday and it has been coming down as of this morning to 72 -We will give lactulose as needed to maintain bowel movements about 2-3 a day -Has had more confusion last night and the ammonia level is just above 100 -Received lactulose enema and seems to much better this morning -Minimal dysarthria but otherwise no more confusion and he has been feeling much better -Noted to be very confused last night-has been confused at night more than during daytime -ABG did show respiratory alkalosis and hemoglobin was down to 6.9 early this morning with ammonia level remained at 155 -Clinically much better but the lactulose enema is coming back right away without any meaningful bowel movement -We will change lactulose enema as needed and the increase the frequency of oral lactulose to have meaningful bowel movements of about 3-5 a day -She remains lethargic but not much confused today 09/08: repeat urine and blood cultures pending will also obtain MRI continue Lactulose p.o., Rifaximin (2) Anemia: Plan: Suspect multifactorial due to chronic disease and ongoing blood loss in the setting of 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 and ongoing hematuria - Since repeat Hgb in the ED was 7.6, will hold transfusion for now - repeat H&H tonight - Appreciate GI input regarding need for possible repeat scope pending worsening rectal bleeding -Hemoglobin decreased to 6.6 and received 1 unit of blood transfusion -Denies any more rectal bleeding -Hemoglobin remained stable and more than 8 -Hematuria seems to be lessening -Hemoglobin went up to 8.1 after receiving 1 unit of blood transfusion -We will monitor CBC 09/08 Hemoglobin dropped from 7.4, now 8.2 No signs of GI bleeding Kan catheter output is brown Repeat tomorrow (3) Hematuria: Plan: He was noted to have hematuria Likely secondary to history of prostate cancer status postradiation Kan catheter in place and the urine is seems to be dark-colored without any yannick hematuria Appreciate urology input and recommendation Hemoglobin remained stable at 8.1 today 09/02/2022 Hematuria seems to be worsening-was seen by urologist and signed off We will observe for now-has been improving 09/08 Urine output is brown (4) 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 (5) Pancytopenia: Plan: Secondary to cirrhosis (6) T2DM (type 2 diabetes mellitus): Plan: Insulin-requiring - last A1c on 07/27 was 9.1 - Continue Lantus for basal, insulin sliding scale Hold while patient is n.p.o., with poor intake (7) Prostate cancer: (8) CKD (chronic kidney disease) stage 3, GFR 30-59 ml/min: Plan: Kidney function remains stable at creatinine level of 1.5 (9) GERD (gastroesophageal reflux disease): Plan DVT Prophylaxis: SCDs in view of anemia, chronic blood loss Code Status: Full code Disposition Anticipate discharge to [facility] when patient is medically stable Admission and Anticipated Discharge Date Admission Date: August 27, 2022 Results & Data Results & Data ([facility]) Vital Signs (Past 12 Hours) Vital Signs Temp Pulse Pulse Resp BP BP Pulse Ox 09/08/22 16:27 63 09/08/22 15:49 36.8 C 65 16 125/53 L 99 09/08/22 11:42 37.2 C 62 17 117/56 L 100 09/08/22 09:00 64 09/08/22 08:07 37.3 C 68 17 99/42 L 98 O2 Del Method 09/08/22 16:27 09/08/22 15:49 Room Air 09/08/22 11:42 Room Air 09/08/22 09:00 09/08/22 08:07 Room Air (1) GERD (gastroesophageal reflux disease) Esophagitis presence: esophagitis presence not specified Qualified Code(s): K21.9 - Gastro-esophageal reflux disease without esophagitis
[2022-09-08] MEDS ORDERED: Nursing to Pharmacy Communication SCH ×2 (20:45→23:30)
[2022-09-09] MEDS: CEFEPIME 1,000 MG in SYRINGE 0 ML IV SCH ×2 (02:33→14:22)
[2022-09-09] MEDS: LACTULOSE SYRUP 20 GM/30 ML UDC PO SCH ×4 (05:25→23:08)
[2022-09-09 07:30] LABS: Hematocrit (blood only) 19.8 % (40.1-51.0); Hemoglobin 6.5 g/dl (14.0-18.0); Mean Corpuscular Hemoglobin 32.5 pg (25.0-34.0); Mean Corpuscular Hgb Conc 32.8 g/dL (32.0-36.0); Mean Platelet Volume 11.5 fL (9.4-12.4); Platelet Count 69 K/uL (130-400); RDW Coefficient of Variation 19.9 % (11.5-14.5); RDW Standard Deviation 70.2 fL (36.4-46.3); White Blood Count 2.46 K/ul (4.8-10.8)
[2022-09-09] MEDS ORDERED: SODIUM CHLORIDE 0.9% 250 ML IV PRN (07:33)
[2022-09-09 07:34] LABS: INR 1.2 (0.9-1.1); Partial Thromboplastin Ratio 1.2; Partial Thromboplastin Time 34.3 Seconds (21.0-31.0)
[2022-09-09 07:57] LABS: Albumin Level 2.6 gm/dl (3.4-5.0); BUN Creatinine Ratio 26.1 (10-20); Bilirubin,Total 2.7 mg/dl (0.2-1.0); Creatinine Clr Calc Pharmacy 45.9 ml/min; Est GFR (African American) 51.9 ml/min; Est GFR (Non-African American) 44.8 ml/min; Globulin 2.7 gm/dl (2.5-4.0); Potassium 3.6 mmol/L (3.5-5.1); Total Protein 5.3 gm/dl (6.0-8.3)
[2022-09-09 08:01] LABS: Anisocytosis Present; Basophils # (auto) 0.01 K/uL (0-0.2); Basophils % (auto) 0.4 %; Eosinophils # (auto) 0.18 K/uL (0-0.50); Eosinophils % (auto) 7.3 %; Immature Granulocytes # (auto) 0.01 K/uL (0.00-0.02); Immature Granulocytes % (auto) 0.4 %; Lymphocytes % (auto) 28.5 %; Monocytes # (auto) 0.25 K/uL (0.24-0.82); Monocytes % (auto) 10.2 %; Neutrophils # (auto) 1.31 K/uL (1.4-6.5); Neutrophils % (auto) 53.2 %; Polychromasia 1+; Tear Drop Cells 1+
[2022-09-09] MEDS: INSULIN ASPART PER UNIT SC SCH ×4 (08:42→20:23)
[2022-09-09] MEDS: FINASTERIDE 5 MG TAB PO SCH (08:43)
[2022-09-09] MEDS: PANTOprazole 40 MG TAB PO SCH ×2 (08:43→20:34)
[2022-09-09] MEDS: rifAXIMin 550 MG TABLET PO SCH ×2 (08:43→20:33)
[2022-09-09] MEDS: ZINC SULFATE 220 MG CAPSULE PO SCH (08:43)
[2022-09-09] MEDS: CITALOPRAM 20 MG TAB PO SCH (08:43)
[2022-09-09] MEDS: FERROUS SULFATE 325 MG TAB PO SCH ×2 (08:44→20:33)
[2022-09-09] MEDS: LANTUS PER UNIT CHARGE SQ SCH ×2 (08:50→20:52)
[2022-09-09] MEDS: allopurinoL 100 MG TAB PO SCH ×2 (09:40→20:33)
--- NOTE | 2022-09-09 14:53 | Progress Note ---
Date of Service September 09, 2022 Assessment & Plan Admission and Anticipated Discharge Date Admission Date: August 27, 2022 Subjective No complaints. Had large loose brown BM per nursing notes. PE: Comfortable, NAD. Much more lucid today. Skin is pale. No ascites, pedal edema. No asterixis on my exam. Labs reviewed -- stable creat, hgb drifting down. A/p: HE - cont current regimen Anemia - s/p recent EGD which showed GAVE. Cont iron, BID PPI. Consider transfusion, defer to primary service Results & Data ([facility]) Vital Signs (Past 12 Hours) Vital Signs Temp Pulse Pulse Resp BP BP Pulse Ox 09/09/22 08:15 57 L 09/09/22 11:58 36.4 C L 64 16 123/47 L 98 09/09/22 11:09 37.0 C 60 14 109/50 L 99 09/09/22 10:09 36.7 C 64 14 118/49 L 97 09/09/22 09:39 36.8 C 60 16 120/60 100 09/09/22 09:24 36.9 C 58 L 14 112/54 L 99 09/09/22 09:05 36.6 C 60 21 112/51 L 100 09/09/22 07:20 36.6 C 61 21 122/58 L 97 O2 Del Method 09/09/22 08:15 09/09/22 11:58 09/09/22 11:09 09/09/22 10:09 09/09/22 09:39 09/09/22 09:24 09/09/22 09:05 09/09/22 07:20 Room Air
--- NOTE | 2022-09-09 17:03 | Hospitalist Progress Note ---
Date of Service September 09, 2022 Assessment & Plan (1) Acute hepatic encephalopathy: Plan (1) Hepatic encephalopathy: Plan: per Dr. Avalos's notes with addendum: He is with FOFANA cirrhosis and was admitted with worsening confusion over the last few days with elevated ammonia level. Initial sign out that pt was refusing to take Lactulose as prescribed but upon further investigation, staff at [facility] report that pt has not been missing doses yet remains more confused. - Lactulose enemas until less confused and can safely take po - Consult GI - appreciate recommendations-MELD SCORE 16 ON 08/29 -Initial head CT showed:IMPRESSION: 1. No acute intracranial hemorrhage or mass effect. 2. White matter hypodensities. These may reflect small vessel disease however appear increased since head CT of August 02, 2022 and are therefore indeterminate. An MRI of the brain could be obtained for further evaluation. 3. Nonspecific pontine hypodensity which can also be assessed on MRI. -RepeatCT -no acute process -No definitive source of infection. Blood and urine cultures are negative -Ammonia level is noted to be high at 101 yesterday and it has been coming down as of this morning to 72 -We will give lactulose as needed to maintain bowel movements about 2-3 a day -Has had more confusion last night and the ammonia level is just above 100 -Received lactulose enema and seems to much better this morning -Minimal dysarthria but otherwise no more confusion and he has been feeling much better -Noted to be very confused last night-has been confused at night more than during daytime -ABG did show respiratory alkalosis and hemoglobin was down to 6.9 early this morning with ammonia level remained at 155 -Clinically much better but the lactulose enema is coming back right away wi thout any meaningful bowel movement -We will change lactulose enema as needed and the increase the frequency of oral lactulose to have meaningful bowel movements of about 3-5 a day -She remains lethargic but not much confused today 09/09: Mental status improved today, awake and alert, answering more questions appropriate repeat urine and blood cultures negative so far continue Lactulose p.o., Rifaximin Continue to monitor closely (2) Anemia: Plan: Suspect multifactorial due to chronic disease and ongoing blood loss in the setting of 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 and ongoing hematuria - Since repeat Hgb in the ED was 7.6, will hold transfusion for now - repeat H&H tonight - Appreciate GI input regarding need for possible repeat scope pending worsening rectal bleeding -Hemoglobin decreased to 6.6 and received 1 unit of blood transfusion -Denies any more rectal bleeding -Hemoglobin remained stable and more than 8 -Hematuria seems to be lessening -Hemoglobin went up to 8.1 after receiving 1 unit of blood transfusion -We will monitor CBC 09/09 Hemoglobin dropped, 6.5 Secondary to hematuria 1 unit packed RBCs ordered Will request urology reevaluation (3) Hematuria: Plan: He was noted to have hematuria Likely secondary to history of prostate cancer status postradiation Kan catheter in place and the urine is seems to be dark-colored without any yannick hematuria Appreciate urology input and recommendation Hemoglobin remained stable at 8.1 today 09/02/2022 Hematuria seems to be worsening-was seen by urologist and signed off We will observe for now-has been improving 09/09 Per above (4) 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 (5) Pancytopenia: Plan: Secondary to cirrhosis (6) T2DM (type 2 diabetes mellitus): Plan: Insulin-requiring - last A1c on 07/27 was 9.1 - Continue Lantus for basal, insulin sliding scale Hold while patient is n.p.o., with poor intake (7) Prostate cancer: (8) CKD (chronic kidney disease) stage 3, GFR 30-59 ml/min: Plan: Kidney function remains stable at creatinine level of 1.5 (9) GERD (gastroesophageal reflux disease): Plan DVT Prophylaxis: SCDs in view of anemia, chronic blood loss Code Status: Full code Disposition Anticipate discharge to [facility] when patient is medically stable Admission and Anticipated Discharge Date Admission Date: August 27, 2022 Subjective Follow-up for hepatic encephalopathy, etc. Seen resting in bed, comfortable, not in distress Awake and alert, answers most questions appropriately Patient's family at the bedside visiting, Marianela and son Alex Family reports patient is answering most questions appropriately also Denies shortness of breath, abdominal pain No note of melena hematochezia Still having some hematuria per Kan catheter No other issues Review of Systems Review of Systems: all noted and negative except for above Physical Exam Physical Exam: General- oriented x 2, not in distress, speaks in sentences with no effort or accessory muscle use Eyes- anicteric Neck- no JVD Lungs- clear BS bilaterally, no rales/wheezes Heart- normal rate, regular rhythm; no murmurs Abdomen- normal bowel sounds, nondistended, soft, nontender Kan catheter in place-positive mild hematuria Extremities- no pretibial edema, no calf tenderness Neuro- alert, oriented x 2; no gross focal neurologic deficits Skin- warm & dry Results & Data Results & Data ([facility]) Vital Signs (Past 12 Hours) Vital Signs Temp Pulse Pulse Pulse Resp BP BP 09/09/22 15:56 62 09/09/22 15:48 36.7 C 60 20 95/43 L 09/09/22 08:15 57 L 09/09/22 11:58 36.4 C L 64 16 123/47 L 09/09/22 11:09 37.0 C 60 14 109/50 L 09/09/22 10:09 36.7 C 64 14 118/49 L 09/09/22 09:39 36.8 C 60 16 120/60 09/09/22 09:24 36.9 C 58 L 14 112/54 L 09/09/22 09:05 36.6 C 60 21 112/51 L 09/09/22 07:20 36.6 C 61 21 122/58 L Pulse Ox O2 Del Method 09/09/22 15:56 09/09/22 15:48 98 Room Air 09/09/22 08:15 09/09/22 11:58 98 09/09/22 11:09 99 09/09/22 10:09 97 09/09/22 09:39 100 09/09/22 09:24 99 09/09/22 09:05 100 09/09/22 07:20 97 Room Air all noted and reviewed including below
[2022-09-09 17:36] LABS: Anion Gap 7.1 (3-11)
[2022-09-09 23:48] LABS: Basophils # (auto) 0.01 K/uL (0-0.2); Basophils % (auto) 0.3 %; Eosinophils # (auto) 0.18 K/uL (0-0.50); Eosinophils % (auto) 5.6 %; Hematocrit (blood only) 22.9 % (40.1-51.0); Hemoglobin 7.8 g/dl (14.0-18.0); Immature Granulocytes # (auto) 0.01 K/uL (0.00-0.02); Immature Granulocytes % (auto) 0.3 %; Lymphocytes # (auto) 0.89 K/uL (1.2-3.4); Lymphocytes % (auto) 27.6 %; Monocytes # (auto) 0.21 K/uL (0.24-0.82); Monocytes % (auto) 6.5 %; Neutrophils # (auto) 1.93 K/uL (1.4-6.5); Neutrophils % (auto) 59.7 %; Platelet Count 70 K/uL (130-400); White Blood Count 3.23 K/ul (4.8-10.8)
[2022-09-10 00:22] LABS: Anisocytosis Present; Mean Corpuscular Hemoglobin 32.8 pg (25.0-34.0); Mean Corpuscular Hgb Conc 34.1 g/dL (32.0-36.0); Mean Corpuscular Volume 96.2 fL (80.0-100.0); RDW Coefficient of Variation 20.3 % (11.5-14.5); RDW Standard Deviation 68.4 fL (36.4-46.3); Red Blood Count 2.38 M/uL (4.63-6.08)
[2022-09-10] MEDS: CEFEPIME 1,000 MG in SYRINGE 0 ML IV SCH (03:33)
[2022-09-10] MEDS: LACTULOSE SYRUP 20 GM/30 ML UDC PO SCH ×3 (05:43→17:15)
[2022-09-10] MEDS: FERROUS SULFATE 325 MG TAB PO SCH ×2 (08:30→20:12)
[2022-09-10] MEDS: PANTOprazole 40 MG TAB PO SCH ×2 (08:30→22:48)
[2022-09-10] MEDS: ZINC SULFATE 220 MG CAPSULE PO SCH (08:30)
[2022-09-10] MEDS: FINASTERIDE 5 MG TAB PO SCH (08:31)
[2022-09-10] MEDS: CITALOPRAM 20 MG TAB PO SCH (08:31)
[2022-09-10] MEDS: allopurinoL 100 MG TAB PO SCH ×2 (08:31→20:12)
[2022-09-10] MEDS: rifAXIMin 550 MG TABLET PO SCH ×2 (08:31→20:12)
[2022-09-10] MEDS: INSULIN ASPART PER UNIT SC SCH ×4 (08:38→20:04)
[2022-09-10] MEDS: LANTUS PER UNIT CHARGE SQ SCH ×2 (08:38→20:10)
[2022-09-10 09:10] LABS: Creatinine Clr Calc Pharmacy 47.1 ml/min; Est GFR (African American) 53.6 ml/min; Est GFR (Non-African American) 46.2 ml/min
--- NOTE | 2022-09-10 09:23 | Gastroenterology Progress Note ---
Date of Service September 10, 2022 Assessment & Plan (1) Hepatic encephalopathy: Plan: Improved compared to earlier in this admission, now mild, w some difficulty w word finding and difficulty providing answers to higher level questions. 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 Plan Will plan for EGD tomorrow to tx GAVE. Please keep NPO after midnight. Cont pantoprazole 40mg BID. Monitor Hb and outputs. Continue rifaximin 550mg BID and lactuose 20gm Q 6 w awake Cont to hold diuretics until Hb stable and hepatic encephalopathy cleared. Admission and Anticipated Discharge Date Admission Date: August 27, 2022 Supervising Physician Co-Signing Physician Notes I performed a history and physical examination of the patient today, including specifically on physical exam - soft abdomen. I have discussed the patient's management with the advanced practitioner. Please refer to the nurse practitioner's note for the documented findings and plan of care. EGD tomorrow to treat GAVE. Subjective 72 yo male w FOFANA cirrhosis complicated by GAVE, radiation proctitis, ascites post TIPs, hepatic encephalopathy, EV, HCC S/P TACE, Prostate Ca S/P radiation tx, GERD, CKD-3. Admitted from rehab w can Padilla on 08/27. EGD w GAVE. Hep enceph during this admission, improved now. Today able to tell us the month, his name, and answers simple questions appropriately. Hb baseline approx 8, dropped to 6.5 yesterday. Spoke w nurse, no gross GI bleeding in past few days. Did have hematuria. Currently urine draining through mendoza w/o yannick hematuria. Pt denies any pain. Review of Systems Review of Systems: ROS: Gen: + chronic weakness; No fevers. HEENT: No eye redness, or pain, no recent vision changes, Denies sore throat or nasal congestion. Resp: No SOB, no cough Cardio: No palpitations/irregular beats, no chest pain GI: No abdominal pain, no nausea/vomiting : Denies suprapubic pain; Mendoza w/o hematuria this morning. Skin: + mild jaundice, + chronic itching w psoriasis; no new rashes M/S: no swollen/painful joints. Physical Exam Constitutional: + ill appearing and + thin; no acute distress Eyes: + scleral abnormality (mild jaundice) and PERRL ENMT: external ear and nose normal, oropharynx normal Neck: trachea midline, no thyromegaly Respiratory: normal respiratory effort, lungs clear to auscultation Cardiovascular: RRR, no murmur, no edema Gastrointestinal (Abdomen): Inspection/Auscultation: + abdomen distended (mild ascites) non tender, normal BS Skin: mild jaundice, + rash of psoriasis Neurologic: awake and + confused (mild confusion/difficutly w word finding but oriented to person, place); not obtunded Psychiatric: Speech: normal rate/rhythm/volume of speech Cognition: recent memory grossly intact Lymphatic: no cervical or axillary lymphadenopathy Results & Data ([facility]) Vital Signs (Past 12 Hours) Vital Signs Temp Pulse Pulse Resp BP Pulse Ox O2 Del Method 09/10/22 07:53 36.7 C 60 16 135/66 100 Room Air 09/10/22 03:33 36.5 C 56 L 16 120/56 L 94 09/09/22 23:19 61 09/09/22 23:17 36.9 C 58 L 18 124/58 L 93 Room Air Laboratory Results WBC 3.2, Hb 7.8, Hct 22.9, Plts 70, PT 14.9, INR 1.2, Na 143, K 3.6, BUN 40, Cr 1.49, glucose 113. LFTs yesterday: T Bili 2.7, AST 39, ALT 20, Alk Phos 146, Ammonia yesterday 125 was >200 two days ago. Diagnostic Findings CXR 910/7: No acute process. Abd US for ascites 08/27/22: Small-volume abdominopelvic ascites.
--- NOTE | 2022-09-10 10:21 | Urology Progress Note ---
Date of Service September 10, 2022 Assessment & Plan (1) Hematuria: Plan 72 yo M admitted for acute hepatic encephalopathy, GI bleed, and anemia. - Urology asked to reevaluate pt d/t hematuria, anemia. - Reviewed with Dr. Ellis, on-call urologist. - He has history of prostate ca s/p radiation, follows with Dr. Peraza of [facility]. - He is afebrile, nontoxic. - Lab work reviewed - creatinine 1.49, WBC 3.23, Hgb 7.8 (received 1unit PRBC yesterday). - UC&S 09/07 with Coag negative staph, Enterococcus VRE; Blood cultures 09/07 prelim no growth x 48 hours. - Continues on IV Cefepime. - Suspect hematuria is secondary to hx of radiation, Kan catheter, UTI. - Anemia is likely multifactorial and unlikely to be a direct result of the hematuria. - Kan intact and draining dark yellow urine, no clots or hematuria noted on present exam. - Maintain Kan catheter at this time, continue to monitor closely. - Okay to gently hand irrigate prn clot retention or suprapubic discomfort. - If he develops gross hematuria again, can consider imaging. - Can attempt a voiding trial once medically stable or discharge with catheter to follow-up with his primary urologist. - Continue supportive care and management per primary team. - will follow peripherally. Please contact us for any further questions, concerns, or changes in patient status. Admission and Anticipated Discharge Date Admission Date: August 27, 2022 Subjective Patient examined at bedside this AM. Awake, resting in bed on arrival. No acute distress. Kan catheter intact, draining dark yellow urine. No hematuria or clots noted at time of exam. Patient denied any pain or discomfort. Per chart review - Hematuria noted per nursing 09/09. Hand irrigated with 120cc with 125cc return. No clots noted with irrigation but noted occasional clots in Kan tubing. Kan bag changed due to tubing discoloration. Review of Systems Constitutional: as per Subjective / HPI Genitourinary: + as per Subjective / HPI Physical Exam Constitutional: no acute distress Respiratory: no respiratory distress and no labored breathing Neurologic: awake Psychiatric: Orientation: alert and oriented to person Genitourinary: Kan intact, draining dark yellow urine. No hematuria or clots noted at time of exam. Results & Data ([facility]) Vital Signs (Past 12 Hours) Vital Signs Temp Pulse Pulse Resp BP Pulse Ox O2 Del Method 09/10/22 08:00 55 L 09/10/22 08:00 Room Air 09/10/22 07:53 36.7 C 60 16 135/66 100 Room Air 09/10/22 03:33 36.5 C 56 L 16 120/56 L 94 09/09/22 23:19 61 09/09/22 23:17 36.9 C 58 L 18 124/58 L 93 Room Air PG Care Time/CCT Total # of Minutes Spent Total Time Spent with Patient: Total time spent is greater than 50% in coordination of care (as documented) at patient's floor/unit and/or counseling patient: Coding Level of Care Code 40258 Subseq Hosp Care Lvl 2 Diagnoses Hematuria R31.9
[2022-09-10] MEDS: DAPTOmycin 600 MG in SYRINGE 0 ML IV SCH (12:16)
--- NOTE | 2022-09-10 14:11 | Hospitalist Progress Note ---
Date of Service September 10, 2022 Assessment & Plan (1) Acute hepatic encephalopathy: Plan (1) Hepatic encephalopathy: Plan: per Dr. Avalos's notes with addendum: He is with FOFANA cirrhosis and was admitted with worsening confusion over the last few days with elevated ammonia level. Initial sign out that pt was refusing to take Lactulose as prescribed but upon further investigation, staff at [facility] report that pt has not been missing doses yet remains more confused. - Lactulose enemas until less confused and can safely take po - Consult GI - appreciate recommendations-MELD SCORE 16 ON 08/29 -Initial head CT showed:IMPRESSION: 1. No acute intracranial hemorrhage or mass effect. 2. White matter hypodensities. These may reflect small vessel disease however appear increased since head CT of August 02, 2022 and are therefore indeterminate. An MRI of the brain could be obtained for further evaluation. 3. Nonspecific pontine hypodensity which can also be assessed on MRI. -RepeatCT -no acute process -No definitive source of infection. Blood and urine cultures are negative -Ammonia level is noted to be high at 101 yesterday and it has been coming down as of this morning to 72 -We will give lactulose as needed to maintain bowel movements about 2-3 a day -Has had more confusion last night and the ammonia level is just above 100 -Received lactulose enema and seems to much better this morning -Minimal dysarthria but otherwise no more confusion and he has been feeling much better -Noted to be very confused last night-has been confused at night more than during daytime -ABG did show respiratory alkalosis and hemoglobin was down to 6.9 early this morning with ammonia level remained at 155 -Clinically much better but the lactulose enema is coming back right away w ithout any meaningful bowel movement -We will change lactulose enema as needed and the increase the frequency of oral lactulose to have meaningful bowel movements of about 3-5 a day -She remains lethargic but not much confused today 09/10 Mental status gradually improving repeat urine and blood cultures negative so far continue Lactulose p.o., Rifaximin Continue to monitor closely GI consulted (2) Anemia: Plan: Suspect multifactorial due to chronic disease and ongoing blood loss in the setting of 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 and ongoing hematuria - Since repeat Hgb in the ED was 7.6, will hold transfusion for now - repeat H&H tonight - Appreciate GI input regarding need for possible repeat scope pending worsening rectal bleeding -Hemoglobin decreased to 6.6 and received 1 unit of blood transfusion -Denies any more rectal bleeding -Hemoglobin remained stable and more than 8 -Hematuria seems to be lessening -Hemoglobin went up to 8.1 after receiving 1 unit of blood transfusion -We will monitor CBC 09/10 Hemoglobin dropped, 6.5 Secondary to hematuria 1 unit packed RBCs ordered Hemoglobin improved to 7.8 Less hematuria seen on Kan catheter bag today Requested reevaluation by urology service, recommend intermittent irrigation No further intervention at this point per urology service (3) Hematuria: Plan: He was noted to have hematuria Likely secondary to history of prostate cancer status postradiation 09/10 Per above (4) 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 GI on board (5) Pancytopenia: Plan: Secondary to cirrhosis (6) T2DM (type 2 diabetes mellitus): Plan: Insulin-requiring - last A1c on 07/27 was 9.1 - Continue Lantus for basal, insulin sliding scale Hold while patient is n.p.o., with poor intake (7) Prostate cancer: (8) CKD (chronic kidney disease) stage 3, GFR 30-59 ml/min: Plan: Kidney function remains stable at creatinine level of 1.5 (9) GERD (gastroesophageal reflux disease): Plan DVT Prophylaxis: SCDs in view of anemia, chronic blood loss Code Status: Full code Disposition Anticipate discharge to [facility] when patient is medically stable Admission and Anticipated Discharge Date Admission Date: August 27, 2022 Subjective For hepatic encephalopathy, anemia, hematuria, etc. Seen sitting up in bedside chair, comfortable, not in distress Awake and alert, mostly oriented, answering most questions appropriately although slowly Denies abdominal pain, nausea vomiting Appetite is okay Hematuria seems to be improving No other symptoms Review of Systems Review of Systems: all noted and negative except for above Physical Exam Physical Exam: General- oriented x 3, not in distress, speaks in sentences with no effort or accessory muscle use Eyes- anicteric Neck- no JVD Lungs- clear breath sounds bilaterally, no crackles or wheezing Heart- normal rate, regular rhythm; no murmurs Abdomen- normal bowel sounds, nondistended, soft, nontender Kan catheter-mildly red-tinged urine Extremities- no pretibial edema, no calf tenderness Neuro- alert, oriented x 3; no gross focal neurologic deficits Skin- warm & dry Results & Data Results & Data ([facility]) Vital Signs (Past 12 Hours) Vital Signs Temp Pulse Pulse Resp BP Pulse Ox O2 Del Method 09/10/22 11:46 36.5 C 73 20 123/64 99 Room Air 09/10/22 08:00 55 L 09/10/22 08:00 Room Air 09/10/22 07:53 36.7 C 60 16 135/66 100 Room Air 09/10/22 03:33 36.5 C 56 L 16 120/56 L 94 all noted and reviewed including below
[2022-09-11] MEDS: LACTULOSE SYRUP 20 GM/30 ML UDC PO SCH ×5 (00:07→23:18)
[2022-09-11] MEDS: INSULIN ASPART PER UNIT SC SCH ×4 (07:53→21:32)
[2022-09-11 09:16] LABS: Basophils # (auto) 0.01 K/uL (0-0.2); Basophils % (auto) 0.3 %; Eosinophils % (auto) 10.1 %; Hematocrit (blood only) 22.4 % (40.1-51.0); Hemoglobin 7.6 g/dl (14.0-18.0); Immature Granulocytes # (auto) 0.02 K/uL (0.00-0.02); Immature Granulocytes % (auto) 0.7 %; Mean Platelet Volume 11.1 fL (9.4-12.4); Monocytes # (auto) 0.21 K/uL (0.24-0.82); Monocytes % (auto) 7.1 %; Neutrophils # (auto) 1.62 K/uL (1.4-6.5); Neutrophils % (auto) 54.8 %; Platelet Count 69 K/uL (130-400); White Blood Count 2.96 K/ul (4.8-10.8)
[2022-09-11 09:42] LABS: Anisocytosis Present; Mean Corpuscular Hemoglobin 33.3 pg (25.0-34.0); Mean Corpuscular Hgb Conc 33.9 g/dL (32.0-36.0); Mean Corpuscular Volume 98.2 fL (80.0-100.0); Poikilocytosis Present; RDW Coefficient of Variation 20.5 % (11.5-14.5); RDW Standard Deviation 71.3 fL (36.4-46.3); Red Blood Count 2.28 M/uL (4.63-6.08)
[2022-09-11] MEDS: FINASTERIDE 5 MG TAB PO SCH (11:01)
[2022-09-11] MEDS: FERROUS SULFATE 325 MG TAB PO SCH ×2 (11:01→20:35)
[2022-09-11] MEDS: PANTOprazole 40 MG TAB PO SCH ×2 (11:01→20:35)
[2022-09-11] MEDS: CITALOPRAM 20 MG TAB PO SCH (11:01)
[2022-09-11] MEDS: allopurinoL 100 MG TAB PO SCH ×2 (11:01→20:35)
[2022-09-11] MEDS: ZINC SULFATE 220 MG CAPSULE PO SCH (11:01)
[2022-09-11] MEDS: rifAXIMin 550 MG TABLET PO SCH ×2 (11:01→20:36)
[2022-09-11] MEDS: LANTUS PER UNIT CHARGE SQ SCH ×2 (11:02→21:32)
--- NOTE | 2022-09-11 11:26 | Anesthesiology Consultation ---
Date of Service September 11, 2022 Assessment & Plan Chart Review Chart Review: Acceptable Risk for Surgery, Patient NOT seen in Pre Admission Testing and order entry administrator initiated Consults Requested none History Surgery Operation Date: 09/11/22 16:30 Proposed Procedures p Esophagogastroduodenoscopy Dr Clarke - Miguel Clarke MD Height/Weight Height: 6 ft Weight: 73 kg Allergies Allergy/AdvReac Type Severity Reaction Status Date / Time No Known Allergies Allergy Mild Verified 04/12/22 08:58 Medications Home Medications Medication Instructions Recorded Confirmed Last Taken citalopram 10 mg tablet (Celexa) 10 mg PO QAM 03/24/20 08/27/22 04/11/22 allopurinol 100 mg tablet 100 mg PO BID 05/16/20 08/27/22 04/11/22 rifaximin 550 mg tablet (Xifaxan) 550 mg PO BID 12/08/20 08/27/22 04/11/22 finasteride 5 mg tablet 5 mg PO QAM 11/03/21 08/27/22 04/11/22 lactulose 10 gram/15 mL oral 30 ml PO BID 03/13/22 08/27/22 Unknown solution furosemide 20 mg tablet 20 mg PO QAM 07/26/22 08/27/22 Unknown mirtazapine 30 mg tablet 30 mg PO HS 07/26/22 08/27/22 Unknown spironolactone 25 mg tablet 25 mg PO QAM 07/26/22 08/27/22 Unknown ferrous sulfate 325 mg (65 mg 325 mg PO BID #60 tabs 08/10/22 08/27/22 Unknown iron) tablet insulin aspart U-100 100 unit/mL 1 unit (0.01 mL) SC UD 30 days 08/10/22 08/27/22 Unknown subcutaneous solution (Novolog #0.3 mL U-100 Insulin aspart) docusate sodium 100 mg tablet 100 mg PO BID 08/27/22 08/27/22 Unknown insulin glargine 100 unit/mL 15 unit subcut DAILY 08/27/22 08/27/22 Unknown subcutaneous solution (Lantus U-100 Insulin) pantoprazole 40 mg tablet,delayed 40 mg PO DAILY 08/27/22 08/27/22 Unknown release Active Medications Generic Name Dose Route Start Last Admin Trade Name Freq PRN Reason Stop Dose Admin Allopurinol 100 mg 08/29/22 09:45 09/11/22 11:01 Allopurinol 100 Mg Tab PO 09/28/22 09:44 100 mg BID JODI Administration Citalopram Hydrobromide 10 mg 08/29/22 09:45 09/11/22 11:01 Citalopram 20 Mg Tab PO 09/28/22 09:44 10 mg QAM JODI Administration Ferrous Sulfate 325 mg 08/29/22 09:45 09/11/22 11:01 Ferrous Sulfate 325 Mg Tab PO 09/28/22 09:44 325 mg BID JODI Administration Finasteride 5 mg 08/29/22 09:45 09/11/22 11:01 Finasteride 5 Mg Tab PO 09/28/22 09:44 5 mg QAM JODI Administration Furosemide 20 mg 08/31/22 18:15 09/06/22 07:43 Furosemide 20 Mg Tab PO 09/30/22 18:14 20 mg QAM JODI Administration Daptomycin 600 mg/ Syringe 12 mls @ 6 mls/min 09/10/22 12:00 09/10/22 12:16 IV 09/20/22 11:59 6 mls/min DAILY@1200 JODI Administration Protocol Insulin Aspart 0 units 08/27/22 16:30 09/11/22 07:53 Insulin Aspart Per Unit SC 09/26/22 16:29 Not Given ACHS JODI Insulin Glargine 7 units 08/27/22 21:00 09/11/22 11:02 Lantus Per Unit Charge SQ 09/26/22 20:59 7 units BID JODI Administration Lactulose 20 gm 09/06/22 12:00 09/11/22 05:08 Lactulose Syrup 20 Gm/30 Ml Udc PO 10/06/22 11:59 20 gm Q6HWA JODI Administration Lactulose 200 gm 09/08/22 15:15 09/08/22 16:46 Lactulose 200gm/700ml Wtr Enema HI 10/08/22 15:14 Not Given Q8 JODI Mirtazapine 30 mg 08/29/22 21:00 09/06/22 20:40 Mirtazapine Tab 15 Mg Tab PO 09/28/22 20:59 30 mg HS JODI Administration Pantoprazole Sodium 40 mg 09/07/22 21:00 09/11/22 11:01 Pantoprazole 40 Mg Tab PO 10/07/22 20:59 40 mg BID JODI Administration Protocol Rifaximin 550 mg 08/28/22 09:00 09/11/22 11:01 Rifaximin 550 Mg Tablet PO 09/27/22 08:59 550 mg BID JODI Administration Spironolactone 25 mg 08/31/22 18:15 09/06/22 07:40 Spironolactone 25 Mg Tab PO 09/30/22 18:14 25 mg QAM JODI Administration Zinc Sulfate 220 mg 09/04/22 13:00 09/11/22 11:01 Zinc Sulfate 220 Mg Capsule PO 10/04/22 12:59 220 mg QAM JODI Administration Past Medical History Medical History Anemia Anemia of chronic disease 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 CKD (chronic kidney disease) stage 3, GFR 30-59 ml/min DVT prophylaxis Esophageal varices Esophageal varices GAVE (gastric antral vascular ectasia) GERD (gastroesophageal reflux disease) Gout NO ISSUES CURRENTLY History of panic attacks Hyperosmolar hyperglycemic state (HHS) Hypertension Prostate cancer (11/10/20) Psoriasis Rectal bleeding Shortness of breath Upper GI bleed Past Family History Family History Father , "3/4 liver gone due to drinking" Colorectal cancer, Onset Age: 63 Mother Lung cancer Daughter Cancer cervical and thyroid cancers Ovarian cancer Other No family history of adverse response to anesthesia Past Surgical History Surgical History History of abdominal paracentesis multiple History of colonoscopy with polypectomy History of esophagogastroduodenoscopy (EGD) last 10/25 revealed grade 2 esophageal varices, grade 1 gastric varices STABLE History of prostate biopsy malignant History of tonsillectomy and adenoidectomy S/P TIPS (transjugular intrahepatic portosystemic shunt) 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 Smoking Status: Never smoker Hx Alcohol Use: No Hx Substance Use: No substance use type: does not use Physical Exam Vital Signs Last Vital Signs Temp 36.6 C 09/11/22 11:00 Pulse 56 L 09/11/22 11:00 Resp 14 09/11/22 11:00 BP 94/43 L 09/11/22 11:00 Pulse Ox 100 09/11/22 11:00 O2 Del Method 09/11/22 11:00 Testing Laboratory Results 09/11/22 08:58 09/10/22 08:07 PT 13.0 Seconds (9.0-12.0) H 09/09/22 06:58 INR 1.2 (0.9-1.1) H 09/09/22 06:58 APTT 34.3 Seconds (21.0-31.0) H 09/09/22 06:58 Urine Color [place] 09/07/22 Unknown Urine Appearance Turbid (Clear) A 09/07/22 Unknown Urine pH 5.5 (4.5-7.5) 09/07/22 Unknown Ur Specific [place] 1.022 (1.000-1.030) 09/07/22 Unknown Urine Protein 2+ (Negative) H 09/07/22 Unknown Urine Glucose (UA) Negative (Negative) 09/07/22 Unknown Urine Ketones Trace (Negative) H 09/07/22 Unknown Urine Nitrite Positive (Negative) A 09/07/22 Unknown Ur Leukocyte Esterase 2+ (Negative) H 09/07/22 Unknown Urine WBC (Auto) 10-30 /hpf (0-5) H 09/07/22 Unknown Urine RBC (Auto) >30 /hpf (0-4) H 09/07/22 Unknown U Hyaline Cast (Auto) 1-5 /lpf (0-5) 09/07/22 Unknown U Epithel Cells (Auto) 5-10 /lpf (0-5) H 09/07/22 Unknown Urine Bacteria (Auto) 1+ (Negative) H 09/07/22 Unknown Blood Type O Positive 09/09/22 07:47 Antibody Screen NEGATIVE 09/09/22 07:47 09/07/22 Unknown Urine Culture - Final Urine,Straight Cath Coag negative Staphylococcus Enterococcus faecium VRE 09/07/22 12:26 Aerobic Blood Culture - Preliminary Blood No growth in Aerobic bottle after 48 hours. Anaerobic Blood Culture - Preliminary No growth in Anaerobic bottle after 48 hours. 09/07/22 12:31 Aerobic Blood Culture - Preliminary Blood No growth in Aerobic bottle after 48 hours. Anaerobic Blood Culture - Preliminary No growth in Anaerobic bottle after 48 hours. 08/27/22 11:15 Aerobic Blood Culture - Final Blood No growth in Aerobic bottle after 5 days. Anaerobic Blood Culture - Final No growth in Anaerobic bottle after 5 days. 08/27/22 09:35 Aerobic Blood Culture - Final Blood No growth in Aerobic bottle after 5 days. Anaerobic Blood Culture - Final 08/27/22 09:55 Urine Culture - Final Urine,Indwelling Cath No growth - less than 1,000 colonies/mL. 09/11/22 07:45 POC Glucose 112 H Electrocardiogram Date: 08/27/22 Test Reason : Blood Pressure : / mmHG Vent. Rate : 064 BPM Atrial Rate : 064 BPM P-R Int : 174 ms QRS Dur : 092 ms QT Int : 536 ms P-R-T Axes : 057 012 076 degrees QTc Int : 554 ms Normal sinus rhythm Nonspecific ST and T wave abnormality Prolonged QT Abnormal ECG When compared with ECG of 19-AUG-2022 12:36, Nonspecific T wave abnormality now evident in Inferior leads Confirmed by Benjamin Giles ([id number]) on 08/28/2022 5:50:10 AM Chest X-Ray Date: 09/07/22 XR chest 1V portable HISTORY: hepatic encephalopathy COMPARISON: Chest 08/27/2022. FINDINGS: Cardiac silhouette is top normal in size. There are low lung volumes. No pleural effusions. No pneumothorax. Overlying cardiac leads. IMPRESSION: No acute process. Echocardiogram Date: 08/08/22 EF: 65-70% LV Function: normal RWMA: + none Other Findings: + LVH (moderate)
[2022-09-11] MEDS: DAPTOmycin 600 MG in SYRINGE 0 ML IV SCH (12:38)
[2022-09-11] MEDS ORDERED: PROPOFOL IV EMULSION 10 MG/ML 20 ML VIAL IV ONE (14:18)
[2022-09-11] MEDS ORDERED: LIDOCAINE 2% MPF LOCAL 5 ML VIAL INFIL ONE (14:18)
--- NOTE | 2022-09-11 14:53 | History & Physical Bridge Note ---
Date of Service September 11, 2022 History & Physical Bridge Note I have examined the patient, reviewed the History & Physical and in the interval since the performance of the History & Physical I have noted the following changes of clinical significance: no changes noted EGD Patient was explained in detail regarding risks, benefits, limitations and alternatives of the above endoscopic procedure. Risks of intravenous sedation used for procedure were also explained. Risks include, but not limited to perforation, bleeding, infection, respiratory distress, cardiac arrest and . Patient is also aware about the possibility of missed lesion. Patient's questions were answered. The patient verbalized understanding the information and agreed to undergo the procedure.
--- NOTE | 2022-09-11 15:57 | Anesthesiology Progress Note ---
Date of Service September 11, 2022 Anesthesia Post Procedure Vital Signs Vital Signs: Temp Pulse Pulse Resp BP BP Pulse Ox 09/11/22 15:33 56 L 09/11/22 15:11 36.5 C 59 L 18 124/59 L 100 09/11/22 08:00 58 L 09/11/22 11:00 36.6 C 56 L 14 94/43 L 100 09/11/22 07:00 36.4 C L 55 L 14 121/57 L 98 09/11/22 03:53 36.6 C 57 L 18 108/56 L 100 09/10/22 20:45 09/10/22 23:02 63 09/10/22 22:45 37.0 C 61 18 128/55 L 100 09/10/22 19:16 37.0 C 69 20 121/50 L 99 09/10/22 16:00 66 O2 Del Method 09/11/22 15:33 09/11/22 15:11 Room Air 09/11/22 08:00 09/11/22 11:00 Room Air 09/11/22 07:00 Room Air 09/11/22 03:53 Room Air 09/10/22 20:45 Room Air 09/10/22 23:02 09/10/22 22:45 Room Air 09/10/22 19:16 Room Air 09/10/22 16:00 Transfer of Care Handoff Completed per policy Notes Mental Status: alert / awake / arousable Patient Amnestic to Procedure: Yes Nausea / Vomiting: adequately controlled Pain: adequately controlled Airway Patency, RR, SpO2: stable & adequate BP & HR: stable & adequate Hydration State: stable & adequate Anesthetic Complications: no major complications apparent and Pt Satisfied with anesthetic care Notes: The patient is awake and stable.
--- NOTE | 2022-09-11 15:58 | GI REPORT ---
Patient Name: Luis Hale Procedure Date: 09/11/2022 3:20 PM Date of : 1950 Admit Type: Inpatient Age: 72 Gender: Male Attending MD: Miguel Clarke MD Procedure: Upper GI endoscopy Providers: Miguel Clarke MD Referring MD: Franko Villanueva Indications: Watermelon stomach (GAVE syndrome) Medicines: Propofol per Anesthesia Complications: No immediate complications. Estimated Blood Loss: Estimated blood loss: none. Procedure: Pre-Anesthesia Assessment: - Prior to the procedure, a History and Physical was performed, and patient medications, allergies and sensitivities were reviewed. The patient's tolerance of previous anesthesia was reviewed. - The risks and benefits of the procedure and the sedation options and risks were discussed with the patient. All questions were answered and informed consent was obtained. - Patient identification and proposed procedure were verified prior to the procedure by the physician and the nurse. The procedure was verified in the procedure room. - Pre-procedure physical examination revealed no contraindications to sedation. After obtaining informed consent, the endoscope was passed under direct vision. Throughout the procedure, the patient's blood pressure, pulse, and oxygen saturations were monitored continuously. The Scope was introduced through the mouth, and advanced to the second part of duodenum. The upper GI endoscopy was accomplished without difficulty. The patient tolerated the procedure well. Findings: Grade II varices were found in the lower third of the esophagus. Severe gastric antral vascular ectasia with bleeding was present in the prepyloric region of the stomach. Vaporization for hemostasis using argon plasma was successful. The duodenal bulb and second portion of the duodenum were normal. Impression: - Grade II esophageal varices. - Gastric antral vascular ectasia with bleeding. Treated with argon plasma coagulation (APC). - Normal duodenal bulb and second portion of the duodenum. - No specimens collected. Recommendation: - Return patient to [facility] for ongoing care. - Clear liquid diet for 1 day, then advance as tolerated to soft diet for 2 days. - Use a proton pump inhibitor PO BID for 2 months. - Use sucralfate suspension 1 gram PO BID for 2 weeks. - Repeat upper endoscopy in 3 months for retreatment. Miguel Clarke MD 09/11/2022 3:57:43 PM This report has been signed electronically. Note Initiated On: 09/11/2022 3:20 PM Number of Addenda: 0 I attest to the content of the Intraoperative Record and orders documented therein, exceptions below {[id number]}
--- NOTE | 2022-09-11 16:05 | Communication Note ---
Date of Service: September 11, 2022 Diet after EGD today: Clear liquids x 1 day then soft diet x 2 days. Carafate BID PPI BID
--- NOTE | 2022-09-11 20:09 | Hospitalist Progress Note ---
Date of Service September 11, 2022 Assessment & Plan (1) Acute hepatic encephalopathy: Plan (1) Hepatic encephalopathy: Plan: per Dr. Avalos's notes with addendum: He is with FOFANA cirrhosis and was admitted with worsening confusion over the last few days with elevated ammonia level. Initial sign out that pt was refusing to take Lactulose as prescribed but upon further investigation, staff at [facility] report that pt has not been missing doses yet remains more confused. - Lactulose enemas until less confused and can safely take po - Consult GI - appreciate recommendations-MELD SCORE 16 ON 08/29 CT head: No acute process -No definitive source of infection. Blood and urine cultures are negative Given lactulose enema, then transition to lactulose p.o. Ammonia level improving Mental status also improving Status post upper GI scope today 09/11/2010/21/2022 Impression: - Grade II esophageal varices. - Gastric antral vascular ectasia with bleeding. Treated with argon plasma coagulation (APC). - Normal duodenal bulb and second portion of the duodenum. - No specimens collected. Recommendation: - Return patient to [facility] for ongoing care. - Clear liquid diet for 1 day, then advance as tolerated to soft diet for 2 days. - Use a proton pump inhibitor PO BID for 2 months. - Use sucralfate suspension 1 gram PO BID for 2 weeks. - Repeat upper endoscopy in 3 months for retreatment. 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 and ongoing hematuria Also from upper GI bleed secondary to Gastric antral vascular ectasia with bleeding Received multiple transfusions of packed RBCs Hemoglobin improved to 7.8 From 6.5 Hematuria seems to be improving Requested reevaluation by urology service, recommend intermittent irrigation No further intervention at this point per urology service Monitor closely (3) Hematuria: Plan: He was noted to have hematuria Likely secondary to history of prostate cancer status postradiation 09/11 Per above (4) 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 GI on board (5) Pancytopenia: Plan: Secondary to cirrhosis (6) T2DM (type 2 diabetes mellitus): Plan: Insulin-requiring - last A1c on 07/27 was 9.1 - Continue Lantus for basal, insulin sliding scale Hold while patient is n.p.o., with poor intake (7) Prostate cancer: (8) CKD (chronic kidney disease) stage 3, GFR 30-59 ml/min: Plan: Kidney function remains stable at creatinine level of 1.5 (9) GERD (gastroesophageal reflux disease): Plan DVT Prophylaxis: SCDs in view of anemia, chronic blood loss Code Status: Full code Disposition [facility] when patient is medically stable Admission and Anticipated Discharge Date Admission Date: August 27, 2022 Subjective Follow-up for hepatic encephalopathy, etc. Seen resting in bed, comfortable, not in distress Oriented x2, answers most questions appropriately Denies abdominal pain Nausea vomiting No chest pain, shortness of breath, palpitations, dizziness No other symptoms Review of Systems Review of Systems: all noted and negative except for above Physical Exam Physical Exam: General- oriented x 2, not in distress, speaks in sentences with no effort or accessory muscle use Eyes- anicteric Neck- no JVD Lungs- clear breath sounds bilaterally, no rales/wheezes Heart- normal rate, regular rhythm; no murmurs Abdomen- normal bowel sounds, nondistended, soft, No tenderness Extremities- no pretibial edema, no calf tenderness Kan catheter in [id number] urine Neuro- alert, oriented x 2; no gross focal neurologic deficits Skin- warm & dry Results & Data Results & Data ([facility]) Vital Signs (Past 12 Hours) Vital Signs Temp Pulse Pulse Resp BP BP Pulse Ox 09/11/22 19:33 36.6 C 60 16 113/59 L 100 09/11/22 16:17 53 L 18 135/62 100 09/11/22 16:03 54 L 18 129/60 100 09/11/22 15:48 63 18 110/57 L 100 09/11/22 15:33 56 L 09/11/22 15:11 36.5 C 59 L 18 124/59 L 100 09/11/22 11:00 36.6 C 56 L 14 94/43 L 100 O2 Del Method 09/11/22 19:33 Room Air 09/11/22 16:17 Room Air 09/11/22 16:03 Room Air 09/11/22 15:48 Room Air 09/11/22 15:33 09/11/22 15:11 Room Air 09/11/22 11:00 Room Air all noted and reviewed including below
[2022-09-11] MEDS: SUCRALFATE 1 GM/10 ML UDC PO SCH (20:36)
[2022-09-11] MEDS ORDERED: ALBUMIN 25% 100 mL 25 GM/100 ML VIAL IV ONE (23:07)
[2022-09-12 00:09] LABS: BUN Creatinine Ratio 27.3 (10-20); Calcium 7.8 mg/dl (8.5-10.1); Creatinine Clr Calc Pharmacy 53.9 ml/min; Est GFR (African American) 64.4 ml/min; Est GFR (Non-African American) 55.5 ml/min; Magnesium 1.8 mg/dl (1.7-2.4); Potassium 3.8 mmol/L (3.5-5.1)
[2022-09-12] MEDS ORDERED: PROMETHAZINE HCL 6.25 MG in SODIUM CHLORIDE 0.9% 50 ML IV PRN (01:43)
[2022-09-12] MEDS: LACTULOSE SYRUP 20 GM/30 ML UDC PO SCH ×3 (06:32→16:54)
[2022-09-12 07:37] LABS: Hematocrit (blood only) 20.5 % (40.1-51.0); Hemoglobin 6.8 g/dl (14.0-18.0); Mean Corpuscular Hemoglobin 32.9 pg (25.0-34.0); Mean Corpuscular Hgb Conc 33.2 g/dL (32.0-36.0); Mean Platelet Volume 11.4 fL (9.4-12.4); Platelet Count 67 K/uL (130-400); RDW Coefficient of Variation 20.3 % (11.5-14.5); RDW Standard Deviation 71.5 fL (36.4-46.3); Red Blood Count 2.07 M/uL (4.63-6.08); White Blood Count 2.78 K/ul (4.8-10.8)
[2022-09-12 07:43] LABS: Anisocytosis Present; BUN Creatinine Ratio 27.4 (10-20); Basophils # (auto) 0.01 K/uL (0-0.2); Basophils % (auto) 0.4 %; Calcium 7.9 mg/dl (8.5-10.1); Creatinine Clr Calc Pharmacy 55.4 ml/min; Eosinophils # (auto) 0.23 K/uL (0-0.50); Eosinophils % (auto) 8.3 %; Est GFR (African American) 66.9 ml/min; Est GFR (Non-African American) 57.7 ml/min; Immature Granulocytes # (auto) 0.02 K/uL (0.00-0.02); Immature Granulocytes % (auto) 0.7 %; Lymphocytes # (auto) 0.76 K/uL (1.2-3.4); Lymphocytes % (auto) 27.3 %; Monocytes # (auto) 0.19 K/uL (0.24-0.82); Monocytes % (auto) 6.8 %; Neutrophils # (auto) 1.57 K/uL (1.4-6.5); Neutrophils % (auto) 56.5 %; Ovalocytes 1+; Polychromasia 1+; Potassium 3.9 mmol/L (3.5-5.1)
[2022-09-12] MEDS ORDERED: SODIUM CHLORIDE 0.9% 250 ML IV PRN (07:46)
[2022-09-12] MEDS: INSULIN ASPART PER UNIT SC SCH ×4 (08:15→21:48)
[2022-09-12] MEDS: SUCRALFATE 1 GM/10 ML UDC PO SCH ×2 (08:17→20:09)
[2022-09-12] MEDS: FINASTERIDE 5 MG TAB PO SCH (08:17)
[2022-09-12] MEDS: FERROUS SULFATE 325 MG TAB PO SCH ×2 (08:17→20:08)
[2022-09-12] MEDS: rifAXIMin 550 MG TABLET PO SCH ×2 (08:17→20:09)
[2022-09-12] MEDS: ZINC SULFATE 220 MG CAPSULE PO SCH (08:17)
[2022-09-12] MEDS: CITALOPRAM 20 MG TAB PO SCH (08:17)
[2022-09-12] MEDS: PANTOprazole 40 MG TAB PO SCH ×2 (08:17→20:08)
[2022-09-12] MEDS: allopurinoL 100 MG TAB PO SCH ×2 (08:17→20:08)
[2022-09-12] MEDS: LANTUS PER UNIT CHARGE SQ SCH ×2 (08:33→21:51)
--- NOTE | 2022-09-12 08:43 | Gastroenterology Progress Note ---
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 Severe GAVE, tx w APC yesterday. Has hemorrhoids and rectal angiectasias - but not passing bright red blood rectally currently so not likely to be a major factor in his anemia currently. Plan Consider one unit RBC transfusion. Continue BID PPI (ongoing), Carafate x 2 wks. Continue rifaximin 550mg BID and lactulose QID. Has not accumulated significant ascites or had significant peripheral edema while diuretics on hold when ready for DC, would not restart. Can be re- evaluated in the OP setting and restarted then if needed. No on BB for EV because has been intolerant of beta blockers in the past. May need rehab placement until gains strength. GI will sign off. Please recall if new/worsened GI issues. Admission and Anticipated Discharge Date Admission Date: August 27, 2022 Supervising Physician Co-Signing Physician Notes I performed a history and physical examination of the patient today, including specifically on physical exam - soft abdomen. I have discussed the patient's management with the advanced practitioner. Please refer to the nurse practitioner's note for the documented findings and plan of care. s/p APC of GAVE. May transfuse PRBC to keep Hgb > 7 PPI and Carafate Repeat EGD as OP in 3 months. Recall GI if needed. Subjective 72, FOFANA cirrhosis w EV, GAVE, Ascites post TIPs, hepatic encephalopathy. EGD yesterday w severe GAVE, APC-ed; non bleeding grade 2 EV. Passing small brown, loose BMs. Today, more mentally clear. Able to tell me the date. Says he wasn't asked if OK to do the procedure yesterday - which. I told him is correct, that, as he was a bit confused, we had obtained consent from his which he understood and was agreeable regarding. I saw him just after the primary hospitalist and the pt was able to summarize today's plan which is receive blood, continue to have the urine cathetor. Review of Systems Constitutional: + weakness (chronic); no fever, no chills, no sweats and no body aches Eyes: no problem reported Ear, Nose, Mouth, Throat: no problem reported Respiratory: no cough, no dyspnea and no wheezing Cardiovascular: no chest pain, no syncope and no edema Gastrointestinal: as per Subjective / HPI Genitourinary: + as per Subjective / HPI and + problem reported Integumentary: + rash (psoriasis) Neurologic: + generalized weakness and + confusion (some problems w recalling details); no unsteadiness Psychiatric: + difficulty concentrating; no irritability and no anxiety Physical Exam Constitutional: + ill appearing (chronically), average body habitus, cooperative and comfortable; no acute distress Eyes: PERRL, conjunctivae normal, anicteric sclerae ENMT: external ear and nose normal, oropharynx normal Neck: trachea midline, no thyromegaly Respiratory: normal respiratory effort, lungs clear to auscultation Cardiovascular: Rate/Rhythm: regular rate and regular rhythm Heart Sounds: + murmur (2/6 systolic loudest at the apex) Gastrointestinal (Abdomen): Inspection/Auscultation: abdomen normal to inspection and normal bowel sounds; abdomen not distended (very minimal ascites) and no abdominal edema Musculoskeletal: no cyanosis or clubbing, extremities motor strength 5/5 (has general weakness but able to lift both legs off the bed, turn, sit up) Skin: + rash (psoriais); no jaundice Neurologic: PERRL, EOMI, accommodation nl, no face palsy, no dysarthria no asterixes Psychiatric: A+Ox3, euthymic affect Thought Process: + tangential thought process (somewhat) difficulty w word finding. Lymphatic: no cervical or axillary lymphadenopathy Results & Data ([facility]) Vital Signs (Past 12 Hours) Vital Signs Temp Pulse Pulse Pulse Resp BP BP 09/12/22 07:46 36.7 C 60 18 110/67 09/12/22 02:49 37.0 C 57 L 18 109/50 L 09/12/22 01:18 58 L 116/54 L 09/12/22 00:00 63 09/11/22 22:49 36.9 C 58 L 18 106/40 L Pulse Ox O2 Del Method 09/12/22 07:46 97 Room Air 09/12/22 02:49 99 Room Air 09/12/22 01:18 09/12/22 00:00 09/11/22 22:49 99 Room Air Laboratory Results Hb 6.8, Hct 20.5, Plts 67, Na 140, K 3.9 Cl 116, CO2 20, BUN 34, Cr 1.24, glucose 103
--- NOTE | 2022-09-12 13:18 | Hospitalist Progress Note ---
Date of Service September 12, 2022 Assessment & Plan (1) Acute hepatic encephalopathy: Plan (1) Hepatic encephalopathy: Plan: He is with FOFANA cirrhosis, hx of TIPS and was admitted with worsening confusion over the last few days with elevated ammonia level. Initial sign out that pt was refusing to take Lactulose as prescribed but upon further investigation, staff at [facility] report that pt has not been missing doses yet remains more confused. CT head: No acute process Plan: -Mentation improved from presentation. Currently he is on p.o. lactulose and rifaximin. -Continue to titrate the dose based on response. Target for 3 bowel movements per day. (2) Anemia: Multifactorial; chronic rectal bleed due to radiation proctitis, hematuria and gastric antral vascular ectasia. Has received multiple blood transfusion during the hospitalization. EGD done on 09/11 showed grade 2 esophageal varices, gastric antral vascular ectasia with bleeding which was treated with argon plasma coagulation. Plan: We will transfuse 1 unit of packed RBC today. --Continue on PPI twice daily and sucralfate as per GI. Monitor for hematuria; irrigated necessary. Urology service reevaluated the patient and recommends the same. We will remove Kan after hematuria is resolved. (3) Hematuria: Plan: He was noted to have hematuria Likely secondary to history of prostate cancer status postradiation Urine culture shows VRE. Blood culture no growth till date. Plan; Continuing Dapto for total of 1 week as per ID. We will obtain renal ultrasound in setting of UTI and hematuria. Irrigate Kan as necessary as per urology. 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 GI on board Plan; No diuretics as patient has minimal ascites on exam. No propranolol as patient has history of dizziness and syncope while on beta- jassi. (5) Pancytopenia: Plan: Secondary to cirrhosis Monitor (6) T2DM (type 2 diabetes mellitus): Plan: Insulin-requiring - last A1c on 07/27 was 9.1 - Continue Lantus for basal, insulin sliding scale Hold while patient is n.p.o., with poor intake (7) Prostate cancer: (8) CKD (chronic kidney disease) stage 3, GFR 30-59 ml/min: Plan: Kidney function remains stable at creatinine level of 1.5 (9) GERD (gastroesophageal reflux disease): Plan DVT Prophylaxis: SCDs in view of anemia, chronic blood loss Code Status: Full code Disposition Anticipate discharge to [facility] when patient is medically stable Admission and Anticipated Discharge Date Admission Date: August 27, 2022 Subjective Patient seen and examined at bedside. Is comfortably lying in the bed; not in any distress. He is alert, oriented to self, place and time. Kan is in place draining reddish output; no clots seen. Review of Systems Review of Systems: All systems reviewed & are unremarkable except as noted in Subjective Physical Exam Physical Exam: General- oriented x 3, not in distress, speaks in sentences with no effort or accessory muscle use Eyes- anicteric Neck- no JVD Lungs- clear breath sounds bilaterally, no rales/wheezes Heart- normal rate, regular rhythm; no murmurs Abdomen- normal bowel sounds, nondistended, soft, No tenderness Extremities- no pretibial edema, no calf tenderness Kan catheter in [id number] urine Neuro- alert, oriented x 3; no gross focal neurologic deficits Skin- warm & dry Results & Data Results & Data ([facility]) Vital Signs (Past 12 Hours) Vital Signs Temp Pulse Pulse Pulse Resp BP BP 09/12/22 11:56 62 18 100/48 L 09/12/22 10:56 57 L 16 119/56 L 09/12/22 10:53 36.5 C 56 L 18 110/53 L 09/12/22 10:26 36.6 C 57 L 18 106/52 L 09/12/22 10:11 36.6 C 57 L 16 112/57 L 09/12/22 10:30 54 L 09/12/22 09:55 36.6 C 65 18 107/53 L 09/12/22 07:46 36.7 C 60 18 09/12/22 02:49 37.0 C 57 L 18 109/50 L 09/12/22 01:18 58 L BP Pulse Ox O2 Del Method 09/12/22 11:56 100 09/12/22 10:56 99 09/12/22 10:53 100 09/12/22 10:26 100 09/12/22 10:11 100 09/12/22 10:30 09/12/22 09:55 98 09/12/22 07:46 110/67 97 Room Air 09/12/22 02:49 99 Room Air 09/12/22 01:18 116/54 L Laboratory Results Laboratory Results WBC 2.78 K/ul (4.8-10.8) L 09/12/22 06:35 RBC 2.07 M/uL (4.63-6.08) L 09/12/22 06:35 Hgb 6.8 g/dl (14.0-18.0) L* 09/12/22 06:35 Hct 20.5 % (40.1-51.0) L* 09/12/22 06:35 MCV 99.0 fL (80.0-100.0) 09/12/22 06:35 MCH 32.9 pg (25.0-34.0) 09/12/22 06:35 MCHC 33.2 g/dL (32.0-36.0) 09/12/22 06:35 RDW Std Deviation 71.5 fL (36.4-46.3) H 09/12/22 06:35 RDW Coeff of [place] 20.3 % (11.5-14.5) H 09/12/22 06:35 Plt Count 67 K/uL (130-400) L 09/12/22 06:35 MPV 11.4 fL (9.4-12.4) 09/12/22 06:35 Immature Gran % (Auto) 0.7 % 09/12/22 06:35 Neut % (Auto) 56.5 % 09/12/22 06:35 Lymph % (Auto) 27.3 % 09/12/22 06:35 [place] % (Auto) 6.8 % 09/12/22 06:35 Eos % (Auto) 8.3 % 09/12/22 06:35 Baso % (Auto) 0.4 % 09/12/22 06:35 Neut # (Auto) 1.57 K/uL (1.4-6.5) 09/12/22 06:35 Lymph # (Auto) 0.76 K/uL (1.2-3.4) L 09/12/22 06:35 [place] # (Auto) 0.19 K/uL (0.24-0.82) L 09/12/22 06:35 Eos # (Auto) 0.23 K/uL (0-0.50) 09/12/22 06:35 Baso # (Auto) 0.01 K/uL (0-0.2) 09/12/22 06:35 Immature Gran # (Auto) 0.02 K/uL (0.00-0.02) 09/12/22 06:35 Absolute Nucleated RBC 0.02 K/uL (0-0) H 09/08/22 09:55 Nucleated RBC % (auto) 0.7 % 09/08/22 09:55 Polychromasia 1+ 09/12/22 06:35 Poikilocytosis Present 09/11/22 08:58 Anisocytosis Present 09/12/22 06:35 Spherocytes 1+ 09/08/22 09:55 Tear Drop Cells 1+ 09/09/22 06:58 Ovalocytes 1+ 09/12/22 06:35 Echinocytes 1+ 09/07/22 00:33 PT 13.0 Seconds (9.0-12.0) H 09/09/22 06:58 INR 1.2 (0.9-1.1) H 09/09/22 06:58 APTT 34.3 Seconds (21.0-31.0) H 09/09/22 06:58 PTT Ratio 1.2 09/09/22 06:58 ABG pH 7.52 (7.35-7.45) H* 09/05/22 04:38 ABG pCO2 24 mmHg (35-46) L 09/05/22 04:38 ABG pO2 128 mmHg (80-95) H 09/05/22 04:38 ABG HCO3 20 mmol/L (19-24) 09/05/22 04:38 ABG O2 Saturation > 100.0 % (90-95) H 09/05/22 04:38 ABG Base Excess -1.6 mEq/L (-9-1.8) 09/05/22 04:38 Eduard Test Pos (Pos) 09/05/22 04:38 Oxygen Given ROOM AIR 09/05/22 04:38 Sodium 140 mmol/L (136-145) 09/12/22 06:35 Potassium 3.9 mmol/L (3.5-5.1) 09/12/22 06:35 Chloride 116 mmol/L (98-107) H 09/12/22 06:35 Carbon Dioxide 20 mmol/L (21-32) L 09/12/22 06:35 Anion Gap 4 (3-11) 09/12/22 06:35 BUN 34 mg/dl (6-23) H 09/12/22 06:35 Creatinine 1.24 mg/dl (0.6-1.4) 09/12/22 06:35 Est Cr Clr Drug Dosing 55.4 ml/min 09/12/22 06:35 Est GFR ( Amer) 66.9 ml/min 09/12/22 06:35 Est GFR (Non-Af Amer) 57.7 ml/min 09/12/22 06:35 BUN/Creatinine Ratio 27.4 (10-20) H 09/12/22 06:35 Glucose 88 mg/dl (70-99(Fasting)) 09/12/22 06:35 POC Glucose 168 mg/dl (70-99) H 09/12/22 11:12 Lactate 1.7 mmol/L (0.4-2.0) 09/05/22 04:38 Calcium 7.9 mg/dl (8.5-10.1) L 09/12/22 06:35 Phosphorus 3.9 mg/dl (2.5-4.9) 09/03/22 03:46 Magnesium 1.8 mg/dl (1.7-2.4) 09/11/22 23:39 Total Bilirubin 2.7 mg/dl (0.2-1.0) H 09/09/22 06:58 Direct Bilirubin 0.6 mg/dl (0-0.2) H 09/05/22 04:38 AST 39 U/L (13-39) 09/09/22 06:58 ALT 20 U/L (7-52) 09/09/22 06:58 Alkaline Phosphatase 146 U/L (34-104) H 09/09/22 06:58 Ammonia 125.0 umol/L (18-72) H 09/09/22 06:58 Total Protein 5.3 gm/dl (6.0-8.3) L 09/09/22 06:58 Albumin 2.6 gm/dl (3.4-5.0) L 09/09/22 06:58 Globulin 2.7 gm/dl (2.5-4.0) 09/09/22 06:58 Albumin/Globulin Ratio 1.0 (0.9-2) 09/09/22 06:58 Lipase 28 U/L (11-82) 08/27/22 09:32 Vitamin B12 496 pg/ml (180-914) 08/27/22 11:11 Folate 9.11 ng/ml (>5.38) 08/27/22 11:11 Procalcitonin 0.17 ng/ml (0-0.5) 08/28/22 06:55 Urine Color Coles 09/07/22 Unknown Urine Appearance Turbid (Clear) A 09/07/22 Unknown Urine pH 5.5 (4.5-7.5) 09/07/22 Unknown Ur Specific [place] 1.022 (1.000-1.030) 09/07/22 Unknown Urine Protein 2+ (Negative) H 09/07/22 Unknown Urine Glucose (UA) Negative (Negative) 09/07/22 Unknown Urine Ketones Trace (Negative) H 09/07/22 Unknown Urine Blood 3+ (Negative) H 09/07/22 Unknown Urine Nitrite Positive (Negative) A 09/07/22 Unknown Urine Bilirubin 1+ (Negative) H 09/07/22 Unknown Urine Urobilinogen Positive (Negative) H 09/07/22 Unknown Ur Leukocyte Esterase 2+ (Negative) H 09/07/22 Unknown Urine WBC (Auto) 10-30 /hpf (0-5) H 09/07/22 Unknown Urine RBC (Auto) >30 /hpf (0-4) H 09/07/22 Unknown U Hyaline Cast (Auto) 1-5 /lpf (0-5) 09/07/22 Unknown U Epithel Cells (Auto) 5-10 /lpf (0-5) H 09/07/22 Unknown Urine Bacteria (Auto) 1+ (Negative) H 09/07/22 Unknown Nasal Screen MRSA (PCR) Negative (Negative) 08/27/22 13:53 Zinc 55 mcg/dL (60-130) L 08/27/22 11:15 SARS-CoV-2, RNA, NAAT NEGATIVE (NEGATIVE) 08/27/22 09:32 Blood Type O Positive 09/12/22 08:10 Antibody Screen NEGATIVE 09/12/22 08:10 Crossmatch See Detail 09/12/22 08:10 Impressions Abdomen Ultrasound 08/27/22 10:39 ULTRASOUND ASCITES CHECK CLINICAL HISTORY: Abdominal ascites. COMPARISON STUDY: Ultrasound ascites check dated 08/02/2022. FINDINGS: Real-time nash scale sonography of all 4 quadrants of the abdomen is performed to assess for abdominal ascites. There is a small volume of abdominopelvic ascites. The largest pocket of fluid is seen in the right upper quadrant. The liver is cirrhotic in morphology. IMPRESSION: Small-volume abdominopelvic ascites. Electronically signed by: Scott Yepez M.D. 08/27/2022 11:[address] 09/01/22 07:55 CT SCAN OF THE BRAIN WITHOUT IV CONTRAST CLINICAL HISTORY: Change in mental status. COMPARISON STUDY: CT of the brain dated 08/27/2022. TECHNIQUE: Unenhanced axial CT scan of the brain is performed from the vertex to the skull base. A dose lowering technique was utilized adhering to the principles of ALARA. The examination is degraded by motion artifact. CT DOSE: 614.27 mGy.cm FINDINGS: Brain parenchyma: There is age-related involutional change noting moderate subcortical and periventricular microangiopathic disease. There is no hemorrhage, mass effect, or evidence of acute territorial ischemia by CT criteria. Nash-white matter differentiation is preserved. No extra-axial fluid collection is seen. Ventricles, sulci, cisterns: Prominent secondary to involutional change. Intracranial vasculature: There is atherosclerotic calcification of the cavernous carotid and vertebral arteries. Calvarium: Unremarkable. Sinuses and mastoids: There is trace mucosal thickening within the maxillary antra. The remaining paranasal sinuses are clear. The mastoid air cells are well pneumatized. Orbits: The bony orbits are grossly intact. IMPRESSION: There is no hemorrhage, mass effect, or evidence of acute territorial ischemia by CT criteria noting a motion compromised examination. ACT 112: Negative or not required by law. Electronically signed by: Scott Yepez M.D. 09/01/2022 8:35 AM Chest X-Ray 09/07/22 12:13 XR chest 1V portable HISTORY: hepatic encephalopathy COMPARISON: Chest 08/27/2022. FINDINGS: Cardiac silhouette is top normal in size. There are low lung volumes. No pleural effusions. No pneumothorax. Overlying cardiac leads. IMPRESSION: No acute process. ACT 112: Negative or not required by law. Electronically signed by: Abdoul Gonzalez M.D. 09/07/2022 3:07 PM
[2022-09-12] MEDS: DAPTOmycin 600 MG in SYRINGE 0 ML IV SCH (13:21)
--- NOTE | 2022-09-12 14:42 | Ultrasound Report ---
US renal/blad retro comp CLINICAL HISTORY: Hematuria and UTI TECHNIQUE: Multiple sonographic real-time images of the kidneys and bladder were obtained. COMPARISON: Comparison is made to CT abdomen pelvis 08/03/2022 FINDINGS: The right kidney measures 10.7 cm in length, and the left kidney measures 10.6 cm in length. The right kidney is normal in size, contour, cortical thickness, and echogenicity. No hydronephrosis is identified. No renal lesion is identified. No perinephric fluid collection is seen. The left kidney is normal in size, contour, cortical thickness and echogenicity. No hydronephrosis i s identified. No renal lesion is identified. No perinephric fluid collection is seen. The bladder is partially distended. No large intraluminal mass is seen. The spleen measures 14.5 cm. A small amount of ascites is seen. IMPRESSION: 1. Incidental note is made of ascites and mild splenomegaly. 2. No abnormal lesions or stones. ACT 112: Negative or not required by law. Electronically signed by: Arik Flowers M.D. 09/12/2022 2:39 PM
[2022-09-13] MEDS: LACTULOSE SYRUP 20 GM/30 ML UDC PO SCH ×5 (00:01→23:09)
[2022-09-13 07:24] LABS: Basophils # (auto) 0.01 K/uL (0-0.2); Basophils % (auto) 0.3 %; Eosinophils # (auto) 0.26 K/uL (0-0.50); Eosinophils % (auto) 8.8 %; Hematocrit (blood only) 23.9 % (40.1-51.0); Hemoglobin 8.2 g/dl (14.0-18.0); Immature Granulocytes # (auto) 0.01 K/uL (0.00-0.02); Immature Granulocytes % (auto) 0.3 %; Lymphocytes # (auto) 0.65 K/uL (1.2-3.4); Mean Platelet Volume 11.2 fL (9.4-12.4); Monocytes # (auto) 0.24 K/uL (0.24-0.82); Monocytes % (auto) 8.1 %; Neutrophils # (auto) 1.79 K/uL (1.4-6.5); Neutrophils % (auto) 60.5 %; Platelet Count 60 K/uL (130-400); White Blood Count 2.96 K/ul (4.8-10.8)
[2022-09-13 07:52] LABS: BUN Creatinine Ratio 20.8 (10-20); Calcium 8.1 mg/dl (8.5-10.1); Creatinine Clr Calc Pharmacy 54.5 ml/min; Est GFR (African American) 66.3 ml/min; Est GFR (Non-African American) 57.2 ml/min; Potassium 4.1 mmol/L (3.5-5.1)
[2022-09-13 07:58] LABS: Mean Corpuscular Hemoglobin 32.9 pg (25.0-34.0); Mean Corpuscular Hgb Conc 34.3 g/dL (32.0-36.0); Nucleated RBC # (auto) 0.02 K/uL (0-0); Nucleated RBC % (auto) 0.7 %; RDW Standard Deviation 68.3 fL (36.4-46.3); Red Blood Count 2.49 M/uL (4.63-6.08)
[2022-09-13] MEDS: INSULIN ASPART PER UNIT SC SCH ×4 (07:58→20:14)
[2022-09-13] MEDS: rifAXIMin 550 MG TABLET PO SCH ×2 (07:59→21:11)
[2022-09-13] MEDS: FERROUS SULFATE 325 MG TAB PO SCH ×2 (07:59→21:11)
[2022-09-13] MEDS: FINASTERIDE 5 MG TAB PO SCH (07:59)
[2022-09-13] MEDS: allopurinoL 100 MG TAB PO SCH ×2 (07:59→21:11)
[2022-09-13] MEDS: CITALOPRAM 20 MG TAB PO SCH (07:59)
[2022-09-13] MEDS: PANTOprazole 40 MG TAB PO SCH ×2 (07:59→21:11)
[2022-09-13] MEDS: ZINC SULFATE 220 MG CAPSULE PO SCH (08:00)
[2022-09-13] MEDS: SUCRALFATE 1 GM/10 ML UDC PO SCH ×2 (08:00→21:12)
[2022-09-13] MEDS: LANTUS PER UNIT CHARGE SQ SCH ×2 (08:05→21:05)
--- NOTE | 2022-09-13 11:33 | Hospitalist Progress Note ---
Date of Service September 13, 2022 Assessment & Plan (1) Acute hepatic encephalopathy: Plan (1) Hepatic encephalopathy: Plan: He is with FOFANA cirrhosis, hx of TIPS and was admitted with worsening confusion over the last few days prior to admission with elevated ammonia level. Initial sign out that pt was refusing to take Lactulose as prescribed but upon further investigation, staff at [facility] report that pt has not been missing doses yet remains more confused. CT head: No acute process Plan: -Mentation improved from presentation. Currently he is on p.o. lactulose and rifaximin. -Continue to titrate the dose based on response. Target for 3 bowel movements per day. (2) Anemia: Multifactorial; chronic rectal bleed due to radiation proctitis, hematuria and gastric antral vascular ectasia. Has received multiple blood transfusion during the hospitalization. EGD done on 09/11 showed grade 2 esophageal varices, gastric antral vascular ectasia with bleeding which was treated with argon plasma coagulation. Plan: --Continue on PPI twice daily and sucralfate as per GI. Monitor for hematuria; irrigated necessary. Urology service reevaluated the patient and recommends the same. -- Plan to remove Kan today and do trial of void. Bladder scan every 8 hours for postvoid residual. If postvoid residual is greater than 250 cc; will reconsider straight cath. If there is recurrent retention; will place the Kan again. (3) Hematuria: Plan: He was noted to have hematuria Likely secondary to history of prostate cancer status postradiation Urine culture shows VRE. Blood culture no growth till date. Renal ultrasound done on 09/12 shows partially distended bladder. Plan; Continuing Daptomycin for total of 1 week as per ID. We will obtain renal ultrasound in setting of UTI and hematuria. To be completed on 09/16. 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 GI on board Plan; No diuretics as patient has minimal ascites on exam. No propranolol as patient has history of dizziness and syncope while on beta- jassi. (5) Pancytopenia: Plan: Secondary to cirrhosis Monitor (6) T2DM (type 2 diabetes mellitus): Plan: Insulin-requiring - last A1c on 07/27 was 9.1 - Continue Lantus for basal, insulin sliding scale Hold while patient is n.p.o., with poor intake (7) Prostate cancer: (8) CKD (chronic kidney disease) stage 3, GFR 30-59 ml/min: Plan: Kidney function remains stable (9) GERD (gastroesophageal reflux disease): On PPI Plan DVT Prophylaxis: SCDs in view of anemia, chronic blood loss Code Status: Full code Disposition [facility] when patient is medically stable Admission and Anticipated Discharge Date Admission Date: August 27, 2022 Subjective Patient seen and examined at bedside. He is alert and oriented to self and place. He continues to have Kan with pinkish drainage. No clots appreciated. Telemetry shows sinus bradycardia; no pauses. Review of Systems Review of Systems: All systems reviewed & are unremarkable except as noted in Subjective Physical Exam Physical Exam: General- oriented x 3, not in distress, speaks in sentences with no effort or accessory muscle use Eyes- anicteric Neck- no JVD Lungs- clear breath sounds bilaterally, no rales/wheezes Heart- normal rate, regular rhythm; no murmurs Abdomen- normal bowel sounds, nondistended, soft, No tenderness Extremities- no pretibial edema, no calf tenderness Kan catheter in [id number] urine Neuro- alert, oriented x 3; no gross focal neurologic deficits Skin- warm & dry Results & Data Results & Data ([facility]) Vital Signs (Past 12 Hours) Vital Signs Temp Pulse Pulse Resp BP BP Pulse Ox 09/13/22 07:30 54 L 09/13/22 07:19 36.7 C 58 L 20 94/43 L 100 09/13/22 04:26 36.8 C 56 L 18 92/44 L 98 09/12/22 23:47 57 L O2 Del Method 09/13/22 07:30 09/13/22 07:19 Room Air 09/13/22 04:26 Room Air 09/12/22 23:47 Laboratory Results Laboratory Results WBC 2.96 K/ul (4.8-10.8) L 09/13/22 06:51 RBC 2.49 M/uL (4.63-6.08) L 09/13/22 06:51 Hgb 8.2 g/dl (14.0-18.0) L 09/13/22 06:51 Hct 23.9 % (40.1-51.0) L 09/13/22 06:51 MCV 96.0 fL (80.0-100.0) 09/13/22 06:51 MCH 32.9 pg (25.0-34.0) 09/13/22 06:51 MCHC 34.3 g/dL (32.0-36.0) 09/13/22 06:51 RDW Std Deviation 68.3 fL (36.4-46.3) H 09/13/22 06:51 RDW Coeff of [place] 20.0 % (11.5-14.5) H 09/13/22 06:51 Plt Count 60 K/uL (130-400) L 09/13/22 06:51 MPV 11.2 fL (9.4-12.4) 09/13/22 06:51 Immature Gran % (Auto) 0.3 % 09/13/22 06:51 Neut % (Auto) 60.5 % 09/13/22 06:51 Lymph % (Auto) 22.0 % 09/13/22 06:51 [place] % (Auto) 8.1 % 09/13/22 06:51 Eos % (Auto) 8.8 % 09/13/22 06:51 Baso % (Auto) 0.3 % 09/13/22 06:51 Neut # (Auto) 1.79 K/uL (1.4-6.5) 09/13/22 06:51 Lymph # (Auto) 0.65 K/uL (1.2-3.4) L 09/13/22 06:51 [place] # (Auto) 0.24 K/uL (0.24-0.82) 09/13/22 06:51 Eos # (Auto) 0.26 K/uL (0-0.50) 09/13/22 06:51 Baso # (Auto) 0.01 K/uL (0-0.2) 09/13/22 06:51 Immature Gran # (Auto) 0.01 K/uL (0.00-0.02) 09/13/22 06:51 Absolute Nucleated RBC 0.02 K/uL (0-0) H 09/13/22 06:51 Nucleated RBC % (auto) 0.7 % 09/13/22 06:51 Polychromasia 1+ 09/12/22 06:35 Poikilocytosis Present 09/11/22 08:58 Anisocytosis Present 09/12/22 06:35 Spherocytes 1+ 09/08/22 09:55 Tear Drop Cells 1+ 09/09/22 06:58 Ovalocytes 1+ 09/12/22 06:35 Echinocytes 1+ 09/07/22 00:33 PT 13.0 Seconds (9.0-12.0) H 09/09/22 06:58 INR 1.2 (0.9-1.1) H 09/09/22 06:58 APTT 34.3 Seconds (21.0-31.0) H 09/09/22 06:58 PTT Ratio 1.2 09/09/22 06:58 ABG pH 7.52 (7.35-7.45) H* 09/05/22 04:38 ABG pCO2 24 mmHg (35-46) L 09/05/22 04:38 ABG pO2 128 mmHg (80-95) H 09/05/22 04:38 ABG HCO3 20 mmol/L (19-24) 09/05/22 04:38 ABG O2 Saturation > 100.0 % (90-95) H 09/05/22 04:38 ABG Base Excess -1.6 mEq/L (-9-1.8) 09/05/22 04:38 Eduard Test Pos (Pos) 09/05/22 04:38 Oxygen Given ROOM AIR 09/05/22 04:38 Sodium 143 mmol/L (136-145) 09/13/22 06:51 Potassium 4.1 mmol/L (3.5-5.1) 09/13/22 06:51 Chloride 118 mmol/L (98-107) H 09/13/22 06:51 Carbon Dioxide 21 mmol/L (21-32) 09/13/22 06:51 Anion Gap 4 (3-11) 09/13/22 06:51 BUN 26 mg/dl (6-23) H 09/13/22 06:51 Creatinine 1.25 mg/dl (0.6-1.4) 09/13/22 06:51 Est Cr Clr Drug Dosing 54.5 ml/min 09/13/22 06:51 Est GFR ( Amer) 66.3 ml/min 09/13/22 06:51 Est GFR (Non-Af Amer) 57.2 ml/min 09/13/22 06:51 BUN/Creatinine Ratio 20.8 (10-20) H 09/13/22 06:51 Glucose 86 mg/dl (70-99(Fasting)) 09/13/22 06:51 POC Glucose 104 mg/dl (70-99) H 09/13/22 07:37 Lactate 1.7 mmol/L (0.4-2.0) 09/05/22 04:38 Calcium 8.1 mg/dl (8.5-10.1) L 09/13/22 06:51 Phosphorus 3.9 mg/dl (2.5-4.9) 09/03/22 03:46 Magnesium 1.8 mg/dl (1.7-2.4) 09/11/22 23:39 Total Bilirubin 2.7 mg/dl (0.2-1.0) H 09/09/22 06:58 Direct Bilirubin 0.6 mg/dl (0-0.2) H 09/05/22 04:38 AST 39 U/L (13-39) 09/09/22 06:58 ALT 20 U/L (7-52) 09/09/22 06:58 Alkaline Phosphatase 146 U/L (34-104) H 09/09/22 06:58 Ammonia 125.0 umol/L (18-72) H 09/09/22 06:58 Total Protein 5.3 gm/dl (6.0-8.3) L 09/09/22 06:58 Albumin 2.6 gm/dl (3.4-5.0) L 09/09/22 06:58 Globulin 2.7 gm/dl (2.5-4.0) 09/09/22 06:58 Albumin/Globulin Ratio 1.0 (0.9-2) 09/09/22 06:58 Lipase 28 U/L (11-82) 08/27/22 09:32 Vitamin B12 496 pg/ml (180-914) 08/27/22 11:11 Folate 9.11 ng/ml (>5.38) 08/27/22 11:11 Procalcitonin 0.17 ng/ml (0-0.5) 08/28/22 06:55 Urine Color [place] 09/07/22 Unknown Urine Appearance Turbid (Clear) A 09/07/22 Unknown Urine pH 5.5 (4.5-7.5) 09/07/22 Unknown Ur Specific [place] 1.022 (1.000-1.030) 09/07/22 Unknown Urine Protein 2+ (Negative) H 09/07/22 Unknown Urine Glucose (UA) Negative (Negative) 09/07/22 Unknown Urine Ketones Trace (Negative) H 09/07/22 Unknown Urine Blood 3+ (Negative) H 09/07/22 Unknown Urine Nitrite Positive (Negative) A 09/07/22 Unknown Urine Bilirubin 1+ (Negative) H 09/07/22 Unknown Urine Urobilinogen Positive (Negative) H 09/07/22 Unknown Ur Leukocyte Esterase 2+ (Negative) H 09/07/22 Unknown Urine WBC (Auto) 10-30 /hpf (0-5) H 09/07/22 Unknown Urine RBC (Auto) >30 /hpf (0-4) H 09/07/22 Unknown U Hyaline Cast (Auto) 1-5 /lpf (0-5) 09/07/22 Unknown U Epithel Cells (Auto) 5-10 /lpf (0-5) H 09/07/22 Unknown Urine Bacteria (Auto) 1+ (Negative) H 09/07/22 Unknown Nasal Screen MRSA (PCR) Negative (Negative) 08/27/22 13:53 Zinc 55 mcg/dL (60-130) L 08/27/22 11:15 SARS-CoV-2, RNA, NAAT NEGATIVE (NEGATIVE) 08/27/22 09:32 Blood Type O Positive 09/12/22 08:10 Antibody Screen NEGATIVE 09/12/22 08:10 Crossmatch See Detail 09/12/22 08:10 Impressions Abdomen Ultrasound 08/27/22 10:39 ULTRASOUND ASCITES CHECK CLINICAL HISTORY: Abdominal ascites. COMPARISON STUDY: Ultrasound ascites check dated 08/02/2022. FINDINGS: Real-time nash scale sonography of all 4 quadrants of the abdomen is performed to assess for abdominal ascites. There is a small volume of abdominopelvic ascites. The largest pocket of fluid is seen in the right upper quadrant. The liver is cirrhotic in morphology. IMPRESSION: Small-volume abdominopelvic ascites. Electronically signed by: Scott Yepez M.D. 08/27/2022 11:[address] 09/01/22 07:55 CT SCAN OF THE BRAIN WITHOUT IV CONTRAST CLINICAL HISTORY: Change in mental status. COMPARISON STUDY: CT of the brain dated 08/27/2022. TECHNIQUE: Unenhanced axial CT scan of the brain is performed from the vertex to the skull base. A dose lowering technique was utilized adhering to the principles of ALARA. The examination is degraded by motion artifact. CT DOSE: 614.27 mGy.cm FINDINGS: Brain parenchyma: There is age-related involutional change noting moderate subcortical and periventricular microangiopathic disease. There is no hemorrhage, mass effect, or evidence of acute territorial ischemia by CT criteria. Nash-white matter differentiation is preserved. No extra-axial fluid collection is seen. Ventricles, sulci, cisterns: Prominent secondary to involutional change. Intracranial vasculature: There is atherosclerotic calcification of the cavernous carotid and vertebral arteries. Calvarium: Unremarkable. Sinuses and mastoids: There is trace mucosal thickening within the maxillary antra. The remaining paranasal sinuses are clear. The mastoid air cells are well pneumatized. Orbits: The bony orbits are grossly intact. IMPRESSION: There is no hemorrhage, mass effect, or evidence of acute territorial ischemia by CT criteria noting a motion compromised examination. ACT 112: Negative or not required by law. Electronically signed by: Scott Yepez M.D. 09/01/2022 8:35 AM Chest X-Ray 09/07/22 12:13 XR chest 1V portable HISTORY: hepatic encephalopathy COMPARISON: Chest 08/27/2022. FINDINGS: Cardiac silhouette is top normal in size. There are low lung volumes. No pleural effusions. No pneumothorax. Overlying cardiac leads. IMPRESSION: No acute process. ACT 112: Negative or not required by law. Electronically signed by: Abdoul Gonzalez M.D. 09/07/2022 3:07 PM Renal Ultrasound 09/12/22 13:16 US renal/blad retro comp CLINICAL HISTORY: Hematuria and UTI TECHNIQUE: Multiple sonographic real-time images of the kidneys and bladder were obtained. COMPARISON: Comparison is made to CT abdomen pelvis 08/03/2022 FINDINGS: The right kidney measures 10.7 cm in length, and the left kidney measures 10.6 cm in length. The right kidney is normal in size, contour, cortical thickness, and echogenicity. No hydronephrosis is identified. No renal lesion is identified. No perinephric fluid collection is seen. The left kidney is normal in size, contour, cortical thickness and echogenicity. No hydronephrosis is identified. No renal lesion is identified. No perinephric fluid collection is seen. The bladder is partially distended. No large intraluminal mass is seen. The spleen measures 14.5 cm. A small amount of ascites is seen. IMPRESSION: 1. Incidental note is made of ascites and mild splenomegaly. 2. No abnormal lesions or stones. ACT 112: Negative or not required by law. Electronically signed by: Arik lFowers M.D. 09/12/2022 2:39 PM
[2022-09-13] MEDS: DAPTOmycin 600 MG in SYRINGE 0 ML IV SCH (12:31)
[2022-09-14] MEDS: LACTULOSE SYRUP 20 GM/30 ML UDC PO SCH ×2 (05:47→12:12)
[2022-09-14 06:54] LABS: Basophils # (auto) 0.02 K/uL (0-0.2); Basophils % (auto) 0.6 %; Eosinophils # (auto) 0.25 K/uL (0-0.50); Eosinophils % (auto) 7.7 %; Hematocrit (blood only) 23.6 % (40.1-51.0); Hemoglobin 8.1 g/dl (14.0-18.0); Immature Granulocytes # (auto) 0.02 K/uL (0.00-0.02); Immature Granulocytes % (auto) 0.6 %; Lymphocytes % (auto) 21.7 %; Mean Platelet Volume 11.3 fL (9.4-12.4); Monocytes # (auto) 0.24 K/uL (0.24-0.82); Monocytes % (auto) 7.4 %; Platelet Count 61 K/uL (130-400); White Blood Count 3.23 K/ul (4.8-10.8)
[2022-09-14 07:15] LABS: BUN Creatinine Ratio 21.8 (10-20); Calcium 7.8 mg/dl (8.5-10.1); Creatinine Clr Calc Pharmacy 51.4 ml/min; Est GFR (African American) 61.5 ml/min; Potassium 3.9 mmol/L (3.5-5.1)
[2022-09-14 07:19] LABS: Mean Corpuscular Hemoglobin 33.3 pg (25.0-34.0); Mean Corpuscular Hgb Conc 34.3 g/dL (32.0-36.0); Mean Corpuscular Volume 97.1 fL (80.0-100.0); RDW Coefficient of Variation 19.7 % (11.5-14.5); RDW Standard Deviation 69.5 fL (36.4-46.3); Red Blood Count 2.43 M/uL (4.63-6.08)
[2022-09-14 08:19] VITALS: O2SAT 98
[2022-09-14] MEDS: allopurinoL 100 MG TAB PO SCH (08:50)
[2022-09-14] MEDS: PANTOprazole 40 MG TAB PO SCH (08:50)
[2022-09-14] MEDS: rifAXIMin 550 MG TABLET PO SCH (08:50)
[2022-09-14] MEDS: FERROUS SULFATE 325 MG TAB PO SCH (08:50)
[2022-09-14] MEDS: FINASTERIDE 5 MG TAB PO SCH (08:50)
[2022-09-14] MEDS: SUCRALFATE 1 GM/10 ML UDC PO SCH (08:50)
[2022-09-14] MEDS: ZINC SULFATE 220 MG CAPSULE PO SCH (08:51)
[2022-09-14] MEDS: CITALOPRAM 20 MG TAB PO SCH (08:51)
[2022-09-14] MEDS: LANTUS PER UNIT CHARGE SQ SCH (09:09)
[2022-09-14] MEDS: INSULIN ASPART PER UNIT SC SCH ×2 (09:09→12:20)
[2022-09-14 11:14] VITALS: PULSE 57; TEMP 97.9
[2022-09-14 12:06] VITALS: BP 92/44
[2022-09-14] MEDS: DAPTOmycin 600 MG in SYRINGE 0 ML IV SCH (12:11)
--- NOTE | 2022-09-14 13:38 | Discharge Summary ---
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 History from the patient is unobtainable due to confusion so history obtained from review of the medical records and by speaking with the staff at [facility], specifically his nurse Ira. She notes that pt has had gradually worsening confusion over the last few days. NH4 level from last came back on Saturday at 127 so Lactulose increased to BID. Pt has been taking this as prescribed. This morning his Hgb came back at 6.7, had been 8.7 on last check. Pt has ongoing rectal bleeding and hematuria but no worse than usual. He has been more lethargic, not following commands, confused, not eating. Due to drop in H&H as well as confusi on, pt was referred to the ED for evaluation. Urine culture done last apparently showed no growth. Pt has not been complaining of significant pain. No fevers, vomiting or diarrhea per nursing report. Blood sugar yesterday in the 270s. Fasting sugar this AM was 156 - given Lantus but did not eat breakfast so he was not given the Novolog. Of note, pt was admitted to this facility 07/26-08/10 for hyperosmolar hyperglycemic state, uncontrolled DM2, MSSA bacteremia, and acute metabolic encephalopathy due to decompensated cirrhosis. He was discharged to [facility] on 08.10 but returned to the ED on 08/19 due to increased rectal bleeding and worsening anemia. Pt was transfused two units and underwent EGD without evidence of active upper GI bleed. He also finished his course of IV Ancef for the bacteremia. He was transferred back to [facility] on 08/23. Admission Exam Per Admitting Provider Constitutional: + altered mental status (confused); no a cute distress Eyes: + scleral abnormality (icterus) ENMT: external ear and nose normal, oropharynx normal Neck: trachea midline Respiratory: no respiratory distress and no labored breathing Auscultation: lungs clear to auscultation bilaterally; no rhonchi and no wheezes Cardiovascular: Rate/Rhythm: regular rate and regular rhythm Vessels: dorsalis pedis pulses present and radial pulses present Extremities: no pedal edema Gastrointestinal (Abdomen): Inspection/Auscultation: normal bowel sounds; abdomen not distended Percussion/Palpation: abdomen soft; abdomen nontender Musculoskeletal: Head/Neck/Chest: normocephalic, head atraumatic and neck supple Skin: + rash (scattered mildly erythematous pl aques on upper extremities, trunk) and + jaundice Neurologic: moves all extremities and + confused Psychiatric: Orientation: oriented to person; + not oriented to place and + not oriented to time Principal Diagnosis Hepatic encephalopathy Anemia Hematuria 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 Discharge Exam General- oriented x 3, not in distress, speaks in sentences with no effort or accessory muscle use Eyes- anicteric Neck- no JVD Lungs- clear breath sounds bilaterally, no rales/wheezes Heart- normal rate, regular rhythm; no murmurs Abdomen- normal bowel sounds, nondistended, soft, No tenderness Extremities- no pretibial edema, no calf tenderness Kan catheter in [id number] urine Neuro- alert, oriented x 3; no gross focal neurologic deficits Skin- warm & dry Discharge Data Allergies Allergy/AdvReac Type Severity Reaction Status Date / Time No Known Allergies Allergy Mild Verified 04/12/22 08:58 Consultations 08/27/22 10:04 ED Decision to Admit Stat 08/27/22 10:13 Consult Gastroenterology Routine 08/30/22 13:38 Consult Urology Routine 09/10/22 11:05 Consult Infectious Diseases Routine Procedures Performed Operation Date: 09/11/22 16:30 Actual Procedures p EGD Hemostasis - Miguel Clarke MD Ordered Studies 08/27/22 10:[address] [CT head/brain wo con] Stat US abdomen ltd ascites Routine 09/01/22 07:55 CT head/brain wo con Stat 09/12/22 13:16 US Renal Bladder [US renal/blad retro comp] Routine Hospital Course (1) Acute hepatic encephalopathy: Plan (1) Hepatic encephalopathy: He is with FOFANA cirrhosis, hx of TIPS and was admitted with worsening confusion over the last few days prior to admission with elevated ammonia level.CT head did not show no acute process Plan: -Mentation improved from presentation. He was discharged on oral lactulose. Dose to be titrated as per normal bowel movements. Also continue on rifaximin (2) Anemia: Multifactorial; chronic rectal bleed due to radiation proctitis, hematuria and gastric antral vascular ectasia. received multiple blood transfusion during the hospitalization. EGD done on 09/11 showed grade 2 esophageal varices, gastric antral vascular ectasia with bleeding which was treated with argon plasma coagulation. Plan: --Continue on PPI twice daily for 60 days and sucralfate as per GI for 14 days. Follow-up with GI in 3 months for repeat endoscopy. Hemoglobin is stable at discharge. (3) Hematuria: He was noted to have hematuria Likely secondary to history of prostate cancer status postradiation Urine culture shows VRE. Blood culture no growth till date. Renal ultrasound done on 09/12 shows partially distended bladder. Plan: ID consulted; patient was discharged on 2 more days of daptomycin to be completed at [facility] to complete 7-day course. Follow-up with urology as outpatient. Urology saw him inpatient. 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 Plan; No diuretics as patient has minimal ascites on exam. His Lasix and spironolactone were discontinued on discharge as per recommendation by GI. (5) Pancytopenia: Secondary to cirrhosis Monitor (6) T2DM (type 2 diabetes mellitus): Lantus dose decreased to 7 units at discharge from 15 units The plan was discussed in length with his son Alex over the phone. He understood and verbalized their instruction. Patient was discharged to [facility] in a stable condition. 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 Please continue to take lactulose 20 g twice daily. The dose of lactulose should be increased to 3-4 times a day to titrate bowel movements to 3 times a day. Please continue on rifaximin twice daily. You are also found to have urinary tract infection. You should be on iv daptomycin 600 mg once a day for next 2 days. Following changes have been made to your medication regimen: 1) Stop Lasix and spironolactone. 2) Please take Protonix 40 mg twice daily for next 60 days. Then, continue on once a day. 3) Take sucralfate 1 g twice daily for next 14 days. 4) Dose of Lantus is decreased to 7 units from 15 units. You need following follow-ups: 1) Follow-up with GI doctor for repeat endoscopy in 3 months. Make appointment as soon as possible 2) Follow-up with your urologist for hematuria. 3) follow-up with your primary care doctor as soon as possible Pending Studies at Discharge: No Stand-Alone Forms: My [facility] Skilled Items Patient informed of condition?: No DNR: No Discharge Level of Care: Acute rehab Communicable Disease: No Discharge Prognosis: Stable Lines: Peripheral IV Urinary Catheter: No Medications and DC Order Prescriptions: New sucralfate 100 mg/mL Suspension 1 g PO BID 14 Days Qty: 280 0RF pantoprazole 40 mg Tablet,Delayed Release (Dr/Ec) 40 mg PO BID 30 Days Qty: 120 0RF Continued citalopram [Celexa] 10 mg tablet 10 mg PO QAM lactulose 10 gram/15 mL solution 30 ml PO BID allopurinol 100 mg Tablet 100 mg PO BID Xifaxan 550 mg tablet 550 mg PO BID Label Comments: Part of the "FOFANA" regimen to remove impurities mirtazapine 30 mg tablet 30 mg PO HS insulin aspart U-100 [Novolog U-100 Insulin aspart] 100 unit/mL Solution 1 unit SC UD 30 Days Qty: 0.3 0RF Rx Instructions: per Sliding Scale on Discharge Instructions ferrous sulfate 325 mg (65 mg iron) tablet 325 mg PO BID Qty: 60 0RF docusate sodium 100 mg Tablet 100 mg PO BID finasteride 5 mg Tablet 5 mg PO QAM Changed insulin glargine [Lantus U-100 Insulin] 100 unit/mL solution 7 unit subcut DAILY Qty: 1 0RF Discontinued spironolactone 25 mg tablet 25 mg PO QAM furosemide 20 mg tablet 20 mg PO QAM pantoprazole 40 mg Tablet,Delayed Release (Dr/Ec) 40 mg PO DAILY Discharge Orders: Discharge Order (Routine); Ordered 09/14/22 Ordered By: Marcus Sheppard Admission Data Admit Date/Time: 08/27/22 10:18 Attending Provider: Marcus Sheppard Admit Provider: Nimisha Grimm Primary Care Provider: Francisco Cisse Other Providers: Nimisha Grimm ; Barbara March ; Raulito Rashid ; [facility] ; Franko Villanueva ; Carlos Avalos ; Victor Hugo Rehman ; Jeanie Camilo ; Eren Fitzpatrick I. ; Dex Awad II ; Negra Garcia ; Kevin Nelson ; Shane Zamora ; Dane Juarez Other Interventions: Discharge Summary Assessment (RN) Last Done: 09/14/22 12:05
== END 2022-09-14 14:39 | DRG 441 ==
LOC: ED 09:16 → SUATTDRO 10:18 → 2E 10:18
DX: K31.811 Angiodysplasia of stomach and duodenum with bleeding; K74.69 Other cirrhosis of liver; R31.9 Hematuria, unspecified; Y84.2 Radiological procedure and radiotherapy as the cause of abnormal reaction of the patient, or of later complication, without mention of misadventure at the time of the procedure; D61.818 Other pancytopenia; K62.7 Radiation proctitis; D63.8 Anemia in other chronic diseases classified elsewhere; R18.8 Other ascites; E87.3 Alkalosis; K75.81 Nonalcoholic steatohepatitis (NASH); K76.82 Hepatic encephalopathy; Z79.4 Long term (current) use of insulin; Z85.46 Personal history of malignant neoplasm of prostate; Z92.3 Personal history of irradiation; M10.9 Gout, unspecified; N18.30 Chronic kidney disease, stage 3 unspecified; K62.5 Hemorrhage of anus and rectum; I85.10 Secondary esophageal varices without bleeding; I12.9 Hypertensive chronic kidney disease with stage 1 through stage 4 chronic kidney disease, or unspecified chronic kidney disease; K64.9 Unspecified hemorrhoids

== ENCOUNTER 2022-11-05 12:18 | Inpatient (IN) ==
[2022-11-05 13:08] LABS: Hematocrit (blood only) 22.1 % (40.1-51.0); Hemoglobin 6.6 g/dl (14.0-18.0); Mean Corpuscular Hemoglobin 29.5 pg (25.0-34.0); Mean Corpuscular Hgb Conc 29.9 g/dL (32.0-36.0); Mean Corpuscular Volume 98.7 fL (80.0-100.0); Platelet Count 102 K/uL (130-400); RDW Standard Deviation 57.1 fL (36.4-46.3); Red Blood Count 2.24 M/uL (4.63-6.08); White Blood Count 3.05 K/ul (4.8-10.8)
[2022-11-05 13:15] LABS: INR 1.1 (0.9-1.1); Partial Thromboplastin Time 26.4 Seconds (21.0-31.0)
[2022-11-05] MEDS ORDERED: SODIUM CHLORIDE 0.9% 250 ML IV PRN (13:24)
[2022-11-05 13:34] LABS: Alanine Aminotransferase 20 U/L (7-52); Albumin Globulin Ratio 0.9 (0.9-2); Albumin Level 2.9 gm/dl (3.4-5.0); Alkaline Phosphatase 195 U/L (34-104); Anion Gap 6 (3-11); Aspartate Aminotransferase 34 U/L (13-39); BUN Creatinine Ratio 23.4 (10-20); Bilirubin,Total 1.6 mg/dl (0.2-1.0); Blood Urea Nitrogen 33 mg/dl (6-23); Calcium 8.1 mg/dl (8.5-10.1); Carbon Dioxide 26 mmol/L (21-32); Chloride 109 mmol/L (98-107); Est GFR (African American) 57.3 ml/min; Est GFR (Non-African American) 49.4 ml/min; Globulin 3.2 gm/dl (2.5-4.0); Glucose 248 mg/dl (70-99(Fasting)); Potassium 4.3 mmol/L (3.5-5.1); Sodium 141 mmol/L (136-145); Total Protein 6.1 gm/dl (6.0-8.3)
--- NOTE | 2022-11-05 16:50 | History & Physical Report ---
Date of Service November 05, 2022 Assessment & Plan (1) Blood loss anemia: Plan: Ongoing issue - has required multiple transfusions this fall, most recent 09/12/22. 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 - Admit to PCU - Transfused two units PRBCs in the ED - monitor overnight for stability post- transfusion. Will give lasix 20 mg x 1 with transfusion - Consult GI to determine if additional intervention needed - will keep pt NPO until seen by their service. Due for repeat EGD in Dec 2022. 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 Does not appear encephalopathic at present - Appreciate GI assistance with management - will need f/u with IR at discharge due to concerns with TIPs s/p recent revision and its current functioning - Empiric ceftriaxone in case of possible SBP (3) T2DM (type 2 diabetes mellitus): Plan: - Insulin sliding scale - BSC ACHS (4) CKD (chronic kidney disease) stage 3, GFR 30-59 ml/min: Plan: Follow labs (5) GERD (gastroesophageal reflux disease): Plan: Pt feels like he has been having recurrent symptoms with change from omeprazole to pantoprazole. However, he is also unsure if he has been getting the pantoprazole regularly (6) Pancytopenia: (7) GAVE (gastric antral vascular ectasia): Plan: s/p prior APC in September (8) Esophageal varices: Plan: Hx beta-jassi intolerance due to hypotension Plan Pt seen and reviewed with collaborating physician, Dr. Delaney. Plan of care discussed and as outlined above. 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 He was admitted to this facility in Aug/Sep with confusion due to hepatic encephalopathy. He was also noted to have worsening anemia that was thought to be multifactorial due to chronic rectal bleeding from XRT proctitis, GAVE, and intermittent hematuria. Most recent EGD during that admission, done on 09/11/22, showed grade II esophageal varices in the lower third of the esophagus, severe GAVE for which APC was done. His Hgb post procedure seemed to be stable around 8. He received multiple transfusions during that hospitalization. He was to have a repeat EGD in 3 months. Since discharge, his Hgb appears to have slowly drifted down. Today outpatient Hgb was 6.6 so pt referred to the ED for transfusion and possible additional evaluation. He reports ongoing "occasional" rectal bleeding and hematuria. Last BRBPR was 2-3 days ago and described as a small amount. Also with episode of "pinkish" urine within last week but no passing of clots. This does not seem to be increasing in frequency. He continues to have recurrent issues with ascites with most recent paracentesis three days ago during which 5.6L of ascitic fluid was removed. He reports improved in abdominal discomfort and respiratory status s/p procedure. He reports feeling cold with frequent "chills" over the last couple of weeks. Denies fevers. No change in ongoing issues with weakness and fatigue. He does note PRITCHETT but reports this is an ongoing issue. Appetite is at baseline. No recent falls or syncopal episodes. Mild lightheadedness if he doesn't eat. Sugars have been running over 200 recently so pt increased his baseline Lantus from 7 to 10 units which seems to have helped. Allergies Allergy/AdvReac Type Severity Reaction Status Date / Time No Known Allergies Allergy Mild Verified 11/05/22 15:01 Home Medications Medication Instructions Recorded Confirmed Type citalopram 10 mg tablet (Celexa) 10 mg PO QAM 03/24/20 11/05/22 History allopurinol 100 mg tablet 100 mg PO BID 05/16/20 11/05/22 History rifaximin 550 mg tablet (Xifaxan) 550 mg PO BID 12/08/20 11/05/22 History finasteride 5 mg tablet 5 mg PO QAM 11/03/21 11/05/22 History lactulose 10 gram/15 mL oral 15 ml PO BID 03/13/22 11/05/22 History solution furosemide 20 mg tablet (Lasix) 20 mg PO BID 11/02/22 11/05/22 History spironolactone 25 mg tablet 25 mg PO BID 11/02/22 11/05/22 History insulin glargine 100 unit/mL 10 unit subcut QPM 11/05/22 11/05/22 History subcutaneous solution (Lantus U-100 Insulin) pantoprazole 40 mg tablet,delayed 40 mg PO DAILY 11/05/22 11/05/22 History release 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 CKD (chronic kidney disease) stage 3, GFR 30-59 ml/min DVT prophylaxis Esophageal varices Esophageal varices GAVE (gastric antral vascular ectasia) GERD (gastroesophageal reflux disease) Gout NO ISSUES CURRENTLY History of panic attacks Hyperosmolar hyperglycemic state (HHS) Hypertension Prostate cancer (11/10/20) Psoriasis Rectal bleeding Shortness of breath Upper GI bleed Surgical History History of abdominal paracentesis multiple History of colonoscopy with polypectomy History of esophagogastroduodenoscopy (EGD) last 10/25 revealed grade 2 esophageal varices, grade 1 gastric varices STABLE History of prostate biopsy malignant History of tonsillectomy and adenoidectomy S/P TIPS (transjugular intrahepatic portosystemic shunt) Family History Father , "3/4 liver gone due to drinking" Colorectal cancer, Onset Age: 63 Mother Lung cancer Daughter Cancer cervical and thyroid cancers Ovarian cancer Other No family history of adverse response to anesthesia 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 Smoking Status: Unknown if ever smoked Second Hand Exposure: No; Hx Alcohol Use: No Hx Substance Use: No Preferred Language: Singaporean Communication Ability: Effective Visual Impairment: No Limitations Hearing Ability: Normal Stone Layout Marker Required: No Beliefs That Will Affect Care: None marital status: Current Living Situation: Spouse Current Living Situation Comment: pt at [facility] 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 How many Children do You have: 6 How many Children do You have Comment: one , eldest daughter in her sleep from seizure disorder Other Information That Helps Us Care for You: No Feels Safe at Home: Yes Safety Concerns: Feels Safe At This Time Childhood Exposure to Second-Hand Smoke: Yes Diet Comment: "I watch my sugar, average fasting is 140 mg/dl" caffeine: Yes (cola, sugar free, decaf) during the past year weight has: remained stable Dental Care, Regularly: No Physical Activity Frequency: Does not Exercise Seatbelt Use: always Sunscreen Use: Yes Assistive Devices: Glasses Review of Systems Review of Systems: All systems reviewed & are unremarkable except as noted in HPI & below Constitutional: + chills, + fatigue and + weakness; no fever Eyes: no diplopia Ear, Nose, Mouth, Throat: no nasal congestion, no nasal discharge and no sore throat Respiratory: + dyspnea on exertion; no cough and no wheezing Cardiovascular: + edema; no chest pain, no palpitations and no syncope Gastrointestinal: as per Subjective / HPI Genitourinary: + urinary frequency, + nocturia and + hematuria Musculoskeletal: no back pain, no neck pain and no joint pain Integumentary: rash on abdomen that pt attributes to known psoriasis Neurologic: + generalized weakness; no headache(s) and no confusion Physical Exam Constitutional: + thin; no acute distress Eyes: + anicteric sclerae Neck: trachea midline Respiratory: no respiratory distress and no labored breathing Auscultation: lungs clear to auscultation bilaterally; no rales, no rhonchi and no wheezes Cardiovascular: Rate/Rhythm: regular rate and regular rhythm Heart Sounds: + murmur Vessels: radial pulses present Extremities: + edema (2+) Gastrointestinal (Abdomen): Inspection/Auscultation: + abdomen distended and normal bowel sounds Percussion/Palpation: abdomen soft and + fluid wave; abdomen nontender Musculoskeletal: Head/Neck/Chest: normocephalic, head atraumatic and neck supple Skin: mildly erythematous scaly maculopapular rash on abdomen, extensor surfaces of arms Neurologic: moves all extremities; no focal motor deficits and not confused Psychiatric: A+Ox3, euthymic affect Results & Data Results & Data ([facility]) Vital Signs (Past 12 Hours) Vital Signs Temp Pulse Pulse Resp BP BP Pulse Ox 11/05/22 16:21 36.8 C 67 20 135/64 98 11/05/22 15:51 36.7 C 64 14 134/54 L 98 11/05/22 15:36 37.1 C 64 14 121/58 L 98 11/05/22 15:15 36.5 C 63 14 129/65 98 11/05/22 14:40 65 18 102/42 L 96 11/05/22 12:22 36.7 C 62 16 133/75 100 O2 Del Method 11/05/22 16:21 11/05/22 15:51 11/05/22 15:36 11/05/22 15:15 11/05/22 14:40 Room Air 11/05/22 12:22 Room Air Laboratory Results Laboratory Results - last 24 hr 11/05/22 11/05/22 11/05/22 12:30 12:30 12:30 WBC 3.05 L RBC 2.24 L Hgb 6.6 L* Hct 22.1 L MCV 98.7 MCH 29.5 MCHC 29.9 L RDW Std Deviation 57.1 H RDW Coeff of Violetta 16.0 H Plt Count 102 L MPV 13.0 H PT 12.0 INR 1.1 APTT 26.4 PTT Ratio 1.0 Sodium 141 Potassium 4.3 Chloride 109 H Carbon Dioxide 26 Anion Gap 6 BUN 33 H Creatinine 1.41 H Est Cr Clr Drug Dosing Not Reportable Est GFR ( Amer) 57.3 Est GFR (Non-Af Amer) 49.4 BUN/Creatinine Ratio 23.4 H Glucose 248 H Calcium 8.1 L Total Bilirubin 1.6 H AST 34 ALT 20 Alkaline Phosphatase 195 H Total Protein 6.1 Albumin 2.9 L Globulin 3.2 Albumin/Globulin Ratio 0.9 SARS-CoV-2, RNA, NAAT Blood Type Antibody Screen Crossmatch 11/05/22 11/05/22 12:33 15:40 WBC RBC Hgb Hct MCV MCH MCHC RDW Std Deviation RDW Coeff of Violetta Plt Count MPV PT INR APTT PTT Ratio Sodium Potassium Chloride Carbon Dioxide Anion Gap BUN Creatinine Est Cr Clr Drug Dosing Est GFR ( Amer) Est GFR (Non-Af Amer) BUN/Creatinine Ratio Glucose Calcium Total Bilirubin AST ALT Alkaline Phosphatase Total Protein Albumin Globulin Albumin/Globulin Ratio SARS-CoV-2, RNA, NAAT NEGATIVE Blood Type O Positive Antibody Screen NEGATIVE Crossmatch See Detail Code Status & VTE Plan VTE Prophylaxis Plan VTE Prophylaxis will be ordered: Yes Supervising Physician Co-Signing Physician Notes 72-year-old man presents with critical anemia, 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 He is hemodynamically stable and denies any abdominal pain or other symptoms at this time. He does report intermittent blood per rectum but nothing recently. He has esophageal varices and a history of G AVE status post APC 2 months ago with no reported hematemesis. In the ER he has been started on 2 units of packed red blood cells for a hemoglobin of 6.6. He has persistent pancytopenia with white blood cell count of 3.05. His hematocrit is 22 and platelets are 102K. 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 He has a history of hepatocellular carcinoma having undergone transarterial chemoembolization procedure (TACE). He also has a history of prostate cancer. He denies any recent fevers chills, chest pain shortness of breath or other symptoms. He recently underwent a paracentesis as outpatient on 11/02 for a 5.6 L ascitic fluid removal. He remains on oral furosemide and spironolactone. He is on the liver transplant list. On physical exam vitals are stable and he is mentating at baseline. He gives a good history and is very chatty and pleasant. Heart rate is regular with a 3 out of 6 systolic ejection murmur heard across precordium. He appears euvolemic to slightly hypervolemic. Lower extremity edema 2+ pitting bilaterally and he reports this is improved. Lungs are clear to auscultation bilaterally. Abdomen is protuberant and there is a positive fluid wave. Active scaly rash is present on his hands bilaterally on the extensor surfaces, across his abdomen anteriorly, and on his lower extremities bilaterally. Full skin exam was obscured by clothing that is restrictive. Patient states he is off Humira with history of cancer and does not use topical steroids for treatment of psoriasis. Other work-up today includes INR of 1.1, normal BMP and electrolytes with a creatinine around 1.4 which appears to be his baseline. Glucose is slightly elevated at 248 and patient does report some elevated sugars at home. Total bilirubin is 1.6, AST 34, ALT 20, alkaline phosphatase 195. Alk phos has been elevated in the past. Albumin is 2.9. There is no globulin gap. Overall this is a 72-year-old cirrhotic man presenting with critical anemia. He appears compensated from a cirrhosis standpoint aside from persistent ascites. The anemia raises the question of possible GI bleed. As there is no tachycardia or reported large amounts of blood per rectum per patient who is reliable, will not pursue PPI drip at this time but agree with twice daily PPI until GI can weigh in further and H&H can be trended. Out of concern for spontaneous infection we will cover him with antibiotics prophylactically. Will monitor closely on telemetry overnight. Will ensure IV diuretic is given in between units of blood. If patient requires larger volume resuscitation this evening, would hold diuretics. DO Rhett (1) GERD (gastroesophageal reflux disease) Esophagitis presence: esophagitis presence not specified Qualified Code(s): K21.9 - Gastro-esophageal reflux disease without esophagitis
[2022-11-05] MEDS ORDERED: FUROSEMIDE INJ 20 MG/2 ML VIAL IV ONE (17:17)
[2022-11-05] MEDS ORDERED: GLUCAGON FOR INJ 1 MG VIAL SQ PRN (17:44)
[2022-11-05] MEDS ORDERED: GLUCOSE 10 TAB/TUBE PO PRN (17:44)
[2022-11-05] MEDS ORDERED: CARBOHYDRATES FOR HYPOGLYCEMIA PO PRN (17:44)
[2022-11-05] MEDS ORDERED: DEXTROSE 50% 50 ML SYRINGE IV PRN (17:44)
[2022-11-05] MEDS ORDERED: GLUCOSE 40% GEL 15 GM TUBE PO PRN (17:44)
--- NOTE | 2022-11-05 17:58 | Communication Note ---
Date of Service: November 05, 2022 72-year-old man presents with critical anemia, sent over by his community organization worker. He is hemodynamically stable and denies any abdominal pain or other symptoms at this time. He does report intermittent blood per rectum but nothing recently. He has esophageal varices and a history of G AVE status post APC 2 months ago with no reported hematemesis. In the ER he has been started on 2 units of packed red blood cells for a hemoglobin of 6.6. He has persistent pancytopenia with white blood cell count of 3.05. His hematocrit is 22 and platelets are 102K. 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 He has a history of hepatocellular carcinoma having undergone transarterial chemoembolization procedure (TACE). He also has a history of prostate cancer. He denies any recent fevers chills, chest pain shortness of breath or other symptoms. He recently underwent a paracentesis as outpatient on 11/02 for a 5.6 L ascitic fluid removal. He remains on oral furosemide and spironolactone. He is on the liver transplant list. On physical exam vitals are stable and he is mentating at baseline. He gives a good history and is very chatty and pleasant. Heart rate is regular with a 3 out of 6 systolic ejection murmur heard across precordium. He appears euvolemic to slightly hypervolemic. Lower extremity edema 2+ pitting bilaterally and he reports this is improved. Lungs are clear to auscultation bilaterally. Abdomen is protuberant and there is a positive fluid wave. Active scaly rash is present on his hands bilaterally on the extensor surfaces, across his abdomen anteriorly, and on his lower extremities bilaterally. Full skin exam was obscured by clothing that is restrictive. Patient states he is off Humira with history of cancer and does not use topical steroids for treatment of psoriasis. Other work-up today includes INR of 1.1, normal BMP and electrolytes with a creatinine around 1.4 which appears to be his baseline. Glucose is slightly elevated at 248 and patient does report some elevated sugars at home. Total bilirubin is 1.6, AST 34, ALT 20, alkaline phosphatase 195. Alk phos has been elevated in the past. Albumin is 2.9. There is no globulin gap. Overall this is a 72-year-old cirrhotic man presenting with critical anemia. He appears compensated from a cirrhosis standpoint aside from persistent ascites. The anemia raises the question of possible GI bleed. As there is no tachycardia or reported large amounts of blood per rectum per patient who is reliable, will not pursue PPI drip at this time but agree with twice daily PPI until GI can weigh in further and H&H can be trended. Out of concern for spontaneous infec tion we will cover him with antibiotics prophylactically. Will monitor closely on telemetry overnight. Will ensure IV diuretic is given in between units of blood. If patient requires larger volume resuscitation this evening, would hold diuretics. Rhett,
[2022-11-05] MEDS ORDERED: cefTRIAXone SODIUM 2,000 MG in DEXTROSE 5% AD-VAN 50 ML IV SCH (19:00)
[2022-11-05] MEDS ORDERED: Patient's HEIGHT &/or WEIGHT Needed SCH (19:00)
--- NOTE | 2022-11-05 19:20 | Emergency Department Note ---
Impression & Plan ABLA (acute blood loss anemia), GI (gastrointestinal bleed), Cirrhosis ED Provider Note CHIEF COMPLAINT: Anemia HISTORY OF PRESENT ILLNESS: This 72-year-old male patient presents to the emerge ncy department with complaints of anemia, sent in by his telephone order clerk room service for blood transfusion. The patient does have a history of end-stage liver disease and recurrent GI bleeds. The patient states he has only had bleeding for the last day or so. It has been bright red in nature. Patient also states he has a history of prostate cancer. He has been somewhat weak and cold. He states he is not excited about the idea of staying in the hospital as he is spent many weeks in the hospital in the recent past. He denies use of blood thinners and denies any excessive diarrhea recently. REVIEW OF SYSTEMS: A review of systems was performed with positives and pertinent negatives listed in the history of present illness. 10 systems were reviewed and are otherwise negative. ALLERGIES: see below MEDICATIONS: see below PMH: see below SOCIAL HISTORY: see below DDx: Diverticulosis, AVM, coagulopathy, colitis, inflammatory bowel disease, malignancy, Jodee-Rm tear, esophagitis, peptic ulcer disease, variceal bleed, gastritis, epistaxis, fissure, hemorrhoids, as well as other pathologies. PHYSICAL EXAM: Vital signs reviewed. General: Chronically ill appearing 72 yo male, in no significant distress. HEENT: Pale conjunctiva, PERRLA, neck supple. Dry mucous membranes Cardiovascular: Regular rate and rhythm, no extra sounds. Pulmonary: Clear to auscultation bilaterally, normal work of breathing. Abdomen: distended, nontender, nondistended, positive bowel sounds. Musculoskeletal: Atraumatic, no peripheral edema. Rectal: Guaiac positive, grossly positive brown stool Neurologic: Patient awake alert and oriented x 3, speech is clear Skin: Warm, dry, no rash EMERGENCY DEPARTMENT COURSE/MDM: This patient was evaluated and appeared to be in no significant distress. IV access was obtained and laboratory work was drawn. The patient was noted to have a hemoglobin of 6.6. He is guaiac positive from below. Patient was typed and crossed for 2 units of PRBCs. Blood consent was obtained from the patient's son at the bedside. Patient is fairly stable otherwise. He will be evaluated by the hospitalist service for admission and further management. MONITORING: An order for cardiac monitoring was placed and the patient is noted to be in a normal sinus rhythm at 67 beats per minute. RADIOLOGY: See below DISPOSITION: Admission I have personally spent 35 minutes of critical care time in the direct management of this patient. This was a life/limb threatening event. This 35 minutes is in excess of all separately billable procedures. 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 CKD (chronic kidney disease) stage 3, GFR 30-59 ml/min DVT prophylaxis Esophageal varices Esophageal varices GAVE (gastric antral vascular ectasia) GERD (gastroesophageal reflux disease) Gout NO ISSUES CURRENTLY History of panic attacks Hyperosmolar hyperglycemic state (HHS) Hypertension Prostate cancer (11/10/20) Psoriasis Rectal bleeding Shortness of breath Upper GI bleed Surgical History History of abdominal paracentesis multiple History of colonoscopy with polypectomy History of esophagogastroduodenoscopy (EGD) last 10/25 revealed grade 2 esophageal varices, grade 1 gastric varices STABLE History of prostate biopsy malignant History of tonsillectomy and adenoidectomy S/P TIPS (transjugular intrahepatic portosystemic shunt) Family History Father , "3/4 liver gone due to drinking" Colorectal cancer, Onset Age: 63 Mother Lung cancer Daughter Cancer cervical and thyroid cancers Ovarian cancer Other No family history of adverse response to anesthesia 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 Smoking Status: Never smoker Second Hand Exposure: No; Hx Alcohol Use: No Hx Substance Use: No Preferred Language: [place] Communication Ability: Impaired Visual Impairment: No Limitations Hearing Ability: Normal It Network Architect Required: No Beliefs That Will Affect Care: None marital status: Current Living Situation: Spouse Current Living Situation Comment: pt at [facility] 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 How many Children do You have: 6 How many Children do You have Comment: one , eldest daughter in her sleep from seizure disorder Feels Safe at Home: Yes Childhood Exposure to Second-Hand Smoke: Yes Diet Comment: "I watch my sugar, average fasting is 140 mg/dl" caffeine: Yes (cola, sugar free, decaf) during the past year weight has: remained stable Dental Care, Regularly: No Physical Activity Frequency: Does not Exercise Seatbelt Use: always Sunscreen Use: Yes Assistive Devices: Glasses and Walker Allergies Allergies Allergy/AdvReac Type Severity Reaction Status Date / Time No Known Allergies Allergy Mild Verified 11/05/22 15:01 Home Meds Home Medications Medication Instructions Recorded Confirmed citalopram 10 mg tablet (Celexa) 10 mg PO QAM 03/24/20 11/05/22 allopurinol 100 mg tablet 100 mg PO BID 05/16/20 11/05/22 rifaximin 550 mg tablet (Xifaxan) 550 mg PO BID 12/08/20 11/05/22 finasteride 5 mg tablet 5 mg PO QAM 11/03/21 11/05/22 lactulose 10 gram/15 mL oral 15 ml PO BID 03/13/22 11/05/22 solution furosemide 20 mg tablet (Lasix) 20 mg PO BID 11/02/22 11/05/22 spironolactone 25 mg tablet 25 mg PO BID 11/02/22 11/05/22 insulin glargine 100 unit/mL 10 unit subcut QPM 11/05/22 11/05/22 subcutaneous solution (Lantus U-100 Insulin) pantoprazole 40 mg tablet,delayed 40 mg PO DAILY 11/05/22 11/05/22 release Results & Data (ED) Vital Signs Vital Signs - 24 hr 11/05/22 12:22 11/05/22 14:40 11/05/22 15:15 Temperature 36.7 C 36.5 C Temperature Source Temporal Artery Scan Oral Pulse Rate 62 63 Pulse Rate [Right Finger] 65 Respiratory Rate 16 18 14 Respiratory Effort / Characteristics Non-Labored Respiratory Depth Normal Respiratory Pattern Regular Blood Pressure 133/75 129/65 Blood Pressure [Right Arm] 102/42 L Blood Pressure Mean 94 86 Blood Pressure Mean [Right Arm] 62 Blood Pressure Position Sitting Pulse Oximetry 100 96 98 Oxygen Delivery Method Room Air Room Air Sepsis Recent Fever Within 48 Hours No Sepsis New/Unexplained Change in Mental Status No Sepsis Action Taken by Nursing No Action Required 11/05/22 15:36 11/05/22 15:51 11/05/22 16:21 Temperature 37.1 C 36.7 C 36.8 C Temperature Source Oral Oral Oral Pulse Rate 64 64 67 Pulse Rate [Right Finger] Respiratory Rate 14 14 20 Respiratory Effort / Characteristics Respiratory Depth Respiratory Pattern Blood Pressure 121/58 L 134/54 L 135/64 Blood Pressure [Right Arm] Blood Pressure Mean 79 80 87 Blood Pressure Mean [Right Arm] Blood Pressure Position Pulse Oximetry 98 98 98 Oxygen Delivery Method Sepsis Recent Fever Within 48 Hours Sepsis New/Unexplained Change in Mental Status Sepsis Action Taken by Half-Way Medications Current Medication List: was personally reviewed by me Laboratory Data Attestation: I reviewed the patient's lab results. Result diagrams: 11/05/22 12:30 11/05/22 12:30 Lab Results 11/05/22 11/05/22 11/05/22 Range/Units 12:30 12:30 12:30 WBC 3.05 L (4.8-10.8) K/ul RBC 2.24 L (4.63-6.08) M/uL Hgb 6.6 L* (14.0-18.0) g/dl Hct 22.1 L (40.1-51.0) % MCV 98.7 (80.0-100.0) fL MCH 29.5 (25.0-34.0) pg MCHC 29.9 L (32.0-36.0) g/dL RDW Std Deviation 57.1 H (36.4-46.3) fL RDW Coeff of Violetta 16.0 H (11.5-14.5) % Plt Count 102 L (130-400) K/uL MPV 13.0 H (9.4-12.4) fL PT 12.0 (9.0-12.0) Seconds INR 1.1 (0.9-1.1) APTT 26.4 (21.0-31.0) Seconds PTT Ratio 1.0 Sodium 141 (136-145) mmol/L Potassium 4.3 (3.5-5.1) mmol/L Chloride 109 H (98-107) mmol/L Carbon Dioxide 26 (21-32) mmol/L Anion Gap 6 (3-11) BUN 33 H (6-23) mg/dl Creatinine 1.41 H (0.6-1.4) mg/dl Est Cr Clr Drug Dosing Not Reportable Est GFR ( Amer) 57.3 ml/min Est GFR (Non-Af Amer) 49.4 ml/min BUN/Creatinine Ratio 23.4 H (10-20) Glucose 248 H (70-99(Fasting)) mg/dl Calcium 8.1 L (8.5-10.1) mg/dl Total Bilirubin 1.6 H (0.2-1.0) mg/dl AST 34 (13-39) U/L ALT 20 (7-52) U/L Alkaline Phosphatase 195 H (34-104) U/L Total Protein 6.1 (6.0-8.3) gm/dl Albumin 2.9 L (3.4-5.0) gm/dl Globulin 3.2 (2.5-4.0) gm/dl Albumin/Globulin Ratio 0.9 (0.9-2) SARS-CoV-2, RNA, NAAT (NEGATIVE) Blood Type Antibody Screen Crossmatch 11/05/22 11/05/22 Range/Units 12:33 15:40 WBC (4.8-10.8) K/ul RBC (4.63-6.08) M/uL Hgb (14.0-18.0) g/dl Hct (40.1-51.0) % MCV (80.0-100.0) fL MCH (25.0-34.0) pg MCHC (32.0-36.0) g/dL RDW Std Deviation (36.4-46.3) fL RDW Coeff of Voiletta (11.5-14.5) % Plt Count (130-400) K/uL MPV (9.4-12.4) fL PT (9.0-12.0) Seconds INR (0.9-1.1) APTT (21.0-31.0) Seconds PTT Ratio Sodium (136-145) mmol/L Potassium (3.5-5.1) mmol/L Chloride (98-107) mmol/L Carbon Dioxide (21-32) mmol/L Anion Gap (3-11) BUN (6-23) mg/dl Creatinine (0.6-1.4) mg/dl Est Cr Clr Drug Dosing Est GFR ( Amer) ml/min Est GFR (Non-Af Amer) ml/min BUN/Creatinine Ratio (10-20) Glucose (70-99(Fasting)) mg/dl Calcium (8.5-10.1) mg/dl Total Bilirubin (0.2-1.0) mg/dl AST (13-39) U/L ALT (7-52) U/L Alkaline Phosphatase (34-104) U/L Total Protein (6.0-8.3) gm/dl Albumin (3.4-5.0) gm/dl Globulin (2.5-4.0) gm/dl Albumin/Globulin Ratio (0.9-2) SARS-CoV-2, RNA, NAAT NEGATIVE (NEGATIVE) Blood Type O Positive Antibody Screen NEGATIVE Crossmatch See Detail Administered Medications Discontinued Medications Furosemide (Furosemide Inj 20 Mg/2 Ml Vial) 20 mg IV ONE ONE Stop: 11/05/22 17:18 Last Admin: 11/05/22 18:28 Dose: 20 mg Documented By: AGUSTÍN Blood Pressure Blood Pressure Findings: Normal blood pressure Blood Pressure Disposition: did not require urgent referral Discharge Plan Visit Data Chief Complaint: Referred by Doctor Stated Complaint: REFERRED BY DOCTOR ED Provider: Yissel Torres Discharge Problem: ABLA (acute blood loss anemia), GI (gastrointestinal bleed), Cirrhosis Patient Disposition: Admitted As Inpatient Discharge Instructions Interventions: ED Discharge Assessment Last Done: 11/05/22 17:16
[2022-11-05] MEDS ORDERED: LACTULOSE SYRUP 20 GM/30 ML UDC PO SCH (21:00)
[2022-11-05] MEDS: INSULIN ASPART PER UNIT SC SCH (21:54)
[2022-11-05] MEDS: cefTRIAXone SODIUM 2,000 MG in DEXTROSE 5% 50 ML IV SCH (21:55)
[2022-11-05] MEDS: allopurinoL 100 MG TAB PO SCH (22:17)
[2022-11-05] MEDS: rifAXIMin 550 MG TABLET PO SCH (22:17)
[2022-11-05] MEDS: PANTOprazole 40 MG in SYRINGE 0 ML IV SCH (22:17)
[2022-11-05] MEDS: LACTULOSE SYRUP 10 GM/15 ML BTL 960 ML PO SCH (22:18)
[2022-11-06] MEDS: PROMETHAZINE HCL 12.5 MG in SODIUM CHLORIDE 0.9% 50 ML IV PRN (01:10)
[2022-11-06 06:41] LABS: Albumin Level 2.7 gm/dl (3.4-5.0); Bilirubin Direct 0.5 mg/dl (0-0.2); Bilirubin,Total 2.4 mg/dl (0.2-1.0); Calcium 7.7 mg/dl (8.5-10.1); Creatinine Clr Calc Pharmacy 49.6 ml/min; Est GFR (African American) 58.3 ml/min; Est GFR (Non-African American) 50.3 ml/min; Potassium 4.3 mmol/L (3.5-5.1); Total Protein 5.7 gm/dl (6.0-8.3)
[2022-11-06 06:45] LABS: Hematocrit (blood only) 24.9 % (40.1-51.0); Hemoglobin 7.8 g/dl (14.0-18.0); White Blood Count 3.63 K/ul (4.8-10.8)
[2022-11-06 06:52] LABS: Basophils # (auto) 0.02 K/uL (0-0.2); Basophils % (auto) 0.6 %; Eosinophils # (auto) 0.35 K/uL (0-0.50); Eosinophils % (auto) 9.6 %; Immature Granulocytes # (auto) 0.01 K/uL (0.00-0.02); Immature Granulocytes % (auto) 0.3 %; Lymphocytes % (auto) 19.3 %; Mean Corpuscular Hemoglobin 29.3 pg (25.0-34.0); Mean Corpuscular Hgb Conc 31.3 g/dL (32.0-36.0); Mean Corpuscular Volume 93.6 fL (80.0-100.0); Mean Platelet Volume 13.1 fL (9.4-12.4); Monocytes % (auto) 8.3 %; Neutrophils # (auto) 2.25 K/uL (1.4-6.5); Neutrophils % (auto) 61.9 %; Ovalocytes 1+; Platelet Count 79 K/uL (130-400); Platelet Estimate Decreased (Normal); Polychromasia 1+; RDW Coefficient of Variation 15.9 % (11.5-14.5); RDW Standard Deviation 54.8 fL (36.4-46.3); Red Blood Count 2.66 M/uL (4.63-6.08); Tear Drop Cells 1+
[2022-11-06] MEDS: INSULIN ASPART PER UNIT SC SCH ×4 (08:27→20:29)
[2022-11-06] MEDS: LACTULOSE SYRUP 10 GM/15 ML BTL 960 ML PO SCH ×2 (08:28→20:25)
[2022-11-06] MEDS: FUROSEMIDE 20 MG TAB PO SCH ×2 (08:28→20:24)
[2022-11-06] MEDS: CITALOPRAM 20 MG TAB PO SCH (08:28)
[2022-11-06] MEDS: SPIRONOLACTONE 25 MG TAB PO SCH ×2 (08:28→20:25)
[2022-11-06] MEDS: rifAXIMin 550 MG TABLET PO SCH ×2 (08:29→20:24)
[2022-11-06] MEDS: PANTOprazole 40 MG in SYRINGE 0 ML IV SCH ×2 (08:29→20:24)
[2022-11-06] MEDS: allopurinoL 100 MG TAB PO SCH ×2 (08:29→20:25)
[2022-11-06] MEDS: FINASTERIDE 5 MG TAB PO SCH (08:29)
--- NOTE | 2022-11-06 08:44 | Gastrointestinal Consultation ---
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 BUN not above baseline. He has been transfused 2 units, hemoglobin is currently improved to 7.8. Though he reports intermittent hematochezia, the last being last week, he is having no active GI bleeding at present; feels well. Abd soft, nontender. HD stable. Labs reviewed. He was due to have repeat EGD in Dec for h/o GAVE tx w/ APC in sep 2022. - Will plan for EGD/colonoscopy tomorrow to eval for source of GIB (he has multiple potential sources of chronic GIB) - Continue daily meds for cirrhosis (diuretics, lactulose, PPI) - Monitor and document GI output Trend H&H, transfuse PRN Clear liquids today - Start colonoscopy prep at 1700 today I have reviewed this case with my attending, the hospitalist, and with the pt's staff nurse, and the pt. Please see attending addendum for any additional recommendations: Supervising Physician Co-Signing Physician Notes I performed a history and physical examination of the patient today, including specifically on physical exam - soft abdomen. I have discussed the patient's management with the advanced practitioner. Please refer to the nurse practitioner's note for the documented findings and plan of care. EGD/colonoscopy tomorrow. History of Present Illness Reason for Consultation: Blood loss anemia, cirrhosis Requesting Physician: Brianna Herndon PA-C Attending Physician: Nimisha Grimm MD History of Present Illness Mr. Luis Hale is a72yr old male pt with hx of DM-2, DALTON cirrhosis c/b prior HE, EV (most recent EGD Sep 11 2022 w Grade II EV and GAVE; has been intolerant of BB in the past (hypotension), HCC w/ TACE, ascites s/p TIPs 10/07/2020 with recent revision 10/19/22 and recent US yesterday showing patent TIPs, on liver transplant list, last paracentesis 11/02/22 w/ 5.6 L removed, chronic anemia, prostate CA s/p radiation with radiation proctitis (last flex sig 02/01/22 and 04/12/22: APC'ed, also int and ext hem - med sized present), psoriasis who was admitted after presenting due to low HGB on outpt labs (HGB 6.9). He received 2 units of pRBC; repeat HGB 7.8. BUN 32, Cr 1.39. INR 1.1. He notes chronic intermittent small-volume hematochezia. Last episode was last week. Had a BM today that was loose and brown, denies melena hematochezia, no hematemesis, abdominal pain or vomiting. States his appetite has been normal lately. Denies falls at home, confusion, CP, SOB, fevers or chills, cough. Has intermittent lower extremity edema, not worse lately. Does not feel he has reaccumulated significant ascites from last tap last week. He states he is compliant with his home lactulose and diuretics. Due to have repeat EGD in Dec for h/o GAVE. Currently feels well with no complaints. Decompensations: HCC: [facility] embolization in January 2022, follows with Dr. Bryson. EV:Most recent EGD Oct 2022 w Grade II EV. Has been intolerant of BB in the past (hypotension). Radiation Proctitis: Flex sig 02/01/22 and 04/12/22: APC'ed, also int and ext hem - med sized present. Hepatic Encephalopathy: most recently in July 2022, currently on Lactulose and Rifaximin. Ascites: -Post TIPs and revisionx 2, most recently was 10/19/2022 -[facility]: 5.5L removed. [id number]/30/21: Diverticulosis in the sigmoid colon. The distal rectum with mild XRT proctitis not bleeding. No specimens collected.-Multiple 2 to 5 mm polyps in the ascending colon, removed with a cold snare. Resected and retrieved. Sigmoid diverticulosis. Internal hemorrhoids. Current GI Meds: Rifaximin 550mg BID Lactulose 10Gm/15ml - titrated to 3 BMs/day, recently once/day. Omeprazole 40mg daily Furosemide 20/Spironolactone 25 BID EGD 09/2022: - Grade II esophageal varices. - Gastric antral vascular ectasia with bleeding. Treated with argon plasma coagulation (APC). - Normal duodenal bulb and second portion of the duodenum. - No specimens collected. US ABD w/ doppler 11/05/22: LIVER: Increased echogenicity. Nodular contour. The known bilateral hepatic masses are not visualized. DUCTS: No intrahepatic or extrahepatic duct dilatation. Common bile duct measures 4 mm. GALLBLADDER: No cholelithiasis, gallbladder wall thickening, or pericholecystic fluid. Probable tumefactive sludge. PANCREAS: Pancreatic head cyst measuring 2.4 X 2 x 1.7 Cm (previously 2 x 2 x 2 cm on 10/11/2022). RIGHT KIDNEY: 9.7 Cm in length. Normal size and echogenicity. No hydronephrosis, shadowing calculi or mass. LEFT KIDNEY: 10.9 cm in length. Normal size and echogenicity. Known lower pole cyst is not visualized on this study. No hydronephrosis or shadowing calculi. SPLEEN: 17 cm. Enlarged size without mass. AORTA: Visualized portions normal in caliber. OTHER: Small ascites. IMPRESSION 1. Patent TIPS. Hepatic and perihepatic vascular flow demonstrates a normal pattern and direction. 2. Small ascites. 3. Known bilateral hepatic masses are not visualized. 4. Cirrhosis with portal hypertension. Allergies Allergy/AdvReac Type Severity Reaction Status Date / Time No Known Allergies Allergy Mild Verified 11/05/22 15:01 Home Medications Medication Instructions Recorded Confirmed Type citalopram 10 mg tablet (Celexa) 10 mg PO QAM 03/24/20 11/05/22 History allopurinol 100 mg tablet 100 mg PO BID 05/16/20 11/05/22 History rifaximin 550 mg tablet (Xifaxan) 550 mg PO BID 12/08/20 11/05/22 History finasteride 5 mg tablet 5 mg PO QAM 11/03/21 11/05/22 History lactulose 10 gram/15 mL oral 15 ml PO BID 03/13/22 11/05/22 History solution furosemide 20 mg tablet (Lasix) 20 mg PO BID 11/02/22 11/05/22 History spironolactone 25 mg tablet 25 mg PO BID 11/02/22 11/05/22 History insulin glargine 100 unit/mL 10 unit subcut QPM 11/05/22 11/05/22 History subcutaneous solution (Lantus U-100 Insulin) pantoprazole 40 mg tablet,delayed 40 mg PO DAILY 11/05/22 11/05/22 History release Patient History Medical History Anemia Anemia of chronic disease Cardiac cirrhosis Cirrhosis 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 CKD (chronic kidney disease) stage 3, GFR 30-59 ml/min DVT prophylaxis Esophageal varices Esophageal varices GAVE (gastric antral vascular ectasia) GERD (gastroesophageal reflux disease) Gout NO ISSUES CURRENTLY History of panic attacks Hyperosmolar hyperglycemic state (HHS) Hypertension Prostate cancer (11/10/20) Psoriasis Rectal bleeding Shortness of breath Upper GI bleed Surgical History History of abdominal paracentesis multiple History of colonoscopy with polypectomy History of esophagogastroduodenoscopy (EGD) last 10/25 revealed grade 2 esophageal varices, grade 1 gastric varices STABLE History of prostate biopsy malignant History of tonsillectomy and adenoidectomy S/P TIPS (transjugular intrahepatic portosystemic shunt) Family History Father , "3/4 liver gone due to drinking" Colorectal cancer, Onset Age: 63 Mother Lung cancer Daughter Cancer cervical and thyroid cancers Ovarian cancer Other No family history of adverse response to anesthesia 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 Smoking Status: Unknown if ever smoked Second Hand Exposure: No; Hx Alcohol Use: No Hx Substance Use: No Preferred Language: Georgian Communication Ability: Effective Visual Impairment: No Limitations Hearing Ability: Normal Copy Center Specialist Required: No Beliefs That Will Affect Care: None marital status: Current Living Situation: Spouse Current Living Situation Comment: pt at [facility] 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 How many Children do You have: 6 How many Children do You have Comment: one , eldest daughter in her sleep from seizure disorder Other Information That Helps Us Care for You: No Feels Safe at Home: Yes Safety Concerns: Feels Safe At This Time Childhood Exposure to Second-Hand Smoke: Yes Diet Comment: "I watch my sugar, average fasting is 140 mg/dl" caffeine: Yes (cola, sugar free, decaf) during the past year weight has: remained stable Dental Care, Regularly: No Physical Activity Frequency: Does not Exercise Seatbelt Use: always Sunscreen Use: Yes Assistive Devices: Glasses and Walker Physical Exam Constitutional: WD/WN, vitals as above (chronically ill) Eyes: PERRL, conjunctivae normal, anicteric sclerae ENMT: external ear and nose normal, oropharynx normal Respiratory: normal respiratory effort, lungs clear to auscultation Cardiovascular: RRR, mild lower extremity edema Gastrointestinal (Abdomen): normal bowel sounds, soft, nontender, no hepatosplenomegaly (Perhaps mild nontense, nontender ascites ) Skin: Scattered erythematous plaques with psoriasis, skin is warm and dry Neurologic: No asterixis Psychiatric: A+Ox3, euthymic affect Results & Data ([facility]) Vital Signs (Past 12 Hours) Vital Signs Temp Pulse Pulse Resp BP BP Pulse Ox 11/06/22 08:13 36.7 C 66 18 119/54 L 96 11/06/22 02:47 36.9 C 67 16 117/55 L 94 11/05/22 22:47 36.7 C 62 16 114/58 L 96 11/05/22 21:15 36.8 C 66 14 120/61 99 11/05/22 20:40 36.6 C 66 16 157/65 H 91 O2 Del Method 11/06/22 08:13 Room Air 11/06/22 02:47 Room Air 11/05/22 22:47 Room Air 11/05/22 21:15 11/05/22 20:40 Laboratory Results 11/06/22 11/06/22 11/06/22 Range/Units 07:33 05:47 05:47 WBC 3.63 L (4.8-10.8) K/ul RBC 2.66 L (4.63-6.08) M/uL Hgb 7.8 L (14.0-18.0) g/dl Hct 24.9 L (40.1-51.0) % MCV 93.6 D (80.0-100.0) fL MCH 29.3 (25.0-34.0) pg MCHC 31.3 L (32.0-36.0) g/dL RDW Std Deviation 54.8 H (36.4-46.3) fL RDW Coeff of Violetta 15.9 H (11.5-14.5) % Plt Count 79 L (130-400) K/uL MPV 13.1 H (9.4-12.4) fL Immature Gran % (Auto) 0.3 % Neut % (Auto) 61.9 % Lymph % (Auto) 19.3 % Kleberg % (Auto) 8.3 % Eos % (Auto) 9.6 % Baso % (Auto) 0.6 % Neut # (Auto) 2.25 (1.4-6.5) K/uL Lymph # (Auto) 0.70 L (1.2-3.4) K/uL Kleberg # (Auto) 0.30 (0.24-0.82) K/uL Eos # (Auto) 0.35 (0-0.50) K/uL Baso # (Auto) 0.02 (0-0.2) K/uL Immature Gran # (Auto) 0.01 (0.00-0.02) K/uL Platelet Estimate Decreased L (Normal) Polychromasia 1+ Tear Drop Cells 1+ Ovalocytes 1+ PT (9.0-12.0) Seconds INR (0.9-1.1) APTT (21.0-31.0) Seconds PTT Ratio Sodium 142 (136-145) mmol/L Potassium 4.3 (3.5-5.1) mmol/L Chloride 113 H (98-107) mmol/L Carbon Dioxide 24 (21-32) mmol/L Anion Gap 5 (3-11) BUN 32 H (6-23) mg/dl Creatinine 1.39 (0.6-1.4) mg/dl Est Cr Clr Drug Dosing 49.6 Est GFR ( Amer) 58.3 ml/min Est GFR (Non-Af Amer) 50.3 ml/min BUN/Creatinine Ratio 23.0 H (10-20) Glucose 129 H (70-99(Fasting)) mg/dl POC Glucose 144 H (70-99) mg/dl Calcium 7.7 L (8.5-10.1) mg/dl Total Bilirubin 2.4 H (0.2-1.0) mg/dl Direct Bilirubin 0.5 H (0-0.2) mg/dl AST 32 (13-39) U/L ALT 18 (7-52) U/L Alkaline Phosphatase 189 H (34-104) U/L Ammonia (18-72) umol/L Total Protein 5.7 L (6.0-8.3) gm/dl Albumin 2.7 L (3.4-5.0) gm/dl Globulin (2.5-4.0) gm/dl Albumin/Globulin Ratio (0.9-2) SARS-CoV-2, RNA, NAAT (NEGATIVE) Blood Type Antibody Screen Crossmatch 11/05/22 11/05/22 11/05/22 Range/Units 21:01 18:06 15:40 WBC (4.8-10.8) K/ul RBC (4.63-6.08) M/uL Hgb (14.0-18.0) g/dl Hct (40.1-51.0) % MCV (80.0-100.0) fL MCH (25.0-34.0) pg MCHC (32.0-36.0) g/dL RDW Std Deviation (36.4-46.3) fL RDW Coeff of Violetta (11.5-14.5) % Plt Count (130-400) K/uL MPV (9.4-12.4) fL Immature Gran % (Auto) % Neut % (Auto) % Lymph % (Auto) % Kleberg % (Auto) % Eos % (Auto) % Baso % (Auto) % Neut # (Auto) (1.4-6.5) K/uL Lymph # (Auto) (1.2-3.4) K/uL Kleberg # (Auto) (0.24-0.82) K/uL Eos # (Auto) (0-0.50) K/uL Baso # (Auto) (0-0.2) K/uL Immature Gran # (Auto) (0.00-0.02) K/uL Platelet Estimate (Normal) Polychromasia Tear Drop Cells Ovalocytes PT (9.0-12.0) Seconds INR (0.9-1.1) APTT (21.0-31.0) Seconds PTT Ratio Sodium (136-145) mmol/L Potassium (3.5-5.1) mmol/L Chloride (98-107) mmol/L Carbon Dioxide (21-32) mmol/L Anion Gap (3-11) BUN (6-23) mg/dl Creatinine (0.6-1.4) mg/dl Est Cr Clr Drug Dosing Est GFR ( Amer) ml/min Est GFR (Non-Af Amer) ml/min BUN/Creatinine Ratio (10-20) Glucose (70-99(Fasting)) mg/dl POC Glucose 221 H (70-99) mg/dl Calcium (8.5-10.1) mg/dl Total Bilirubin (0.2-1.0) mg/dl Direct Bilirubin (0-0.2) mg/dl AST (13-39) U/L ALT (7-52) U/L Alkaline Phosphatase (34-104) U/L Ammonia 42.0 (18-72) umol/L Total Protein (6.0-8.3) gm/dl Albumin (3.4-5.0) gm/dl Globulin (2.5-4.0) gm/dl Albumin/Globulin Ratio (0.9-2) SARS-CoV-2, RNA, NAAT NEGATIVE (NEGATIVE) Blood Type Antibody Screen Crossmatch 11/05/22 11/05/22 11/05/22 Range/Units 12:33 12:30 12:30 WBC (4.8-10.8) K/ul RBC (4.63-6.08) M/uL Hgb (14.0-18.0) g/dl Hct (40.1-51.0) % MCV (80.0-100.0) fL MCH (25.0-34.0) pg MCHC (32.0-36.0) g/dL RDW Std Deviation (36.4-46.3) fL RDW Coeff of Violetta (11.5-14.5) % Plt Count (130-400) K/uL MPV (9.4-12.4) fL Immature Gran % (Auto) % Neut % (Auto) % Lymph % (Auto) % Kleberg % (Auto) % Eos % (Auto) % Baso % (Auto) % Neut # (Auto) (1.4-6.5) K/uL Lymph # (Auto) (1.2-3.4) K/uL Kleberg # (Auto) (0.24-0.82) K/uL Eos # (Auto) (0-0.50) K/uL Baso # (Auto) (0-0.2) K/uL Immature Gran # (Auto) (0.00-0.02) K/uL Platelet Estimate (Normal) Polychromasia Tear Drop Cells Ovalocytes PT 12.0 (9.0-12.0) Seconds INR 1.1 (0.9-1.1) APTT 26.4 (21.0-31.0) Seconds PTT Ratio 1.0 Sodium 141 (136-145) mmol/L Potassium 4.3 (3.5-5.1) mmol/L Chloride 109 H (98-107) mmol/L Carbon Dioxide 26 (21-32) mmol/L Anion Gap 6 (3-11) BUN 33 H (6-23) mg/dl Creatinine 1.41 H (0.6-1.4) mg/dl Est Cr Clr Drug Dosing Not Reportable Est GFR ( Amer) 57.3 ml/min Est GFR (Non-Af Amer) 49.4 ml/min BUN/Creatinine Ratio 23.4 H (10-20) Glucose 248 H (70-99(Fasting)) mg/dl POC Glucose (70-99) mg/dl Calcium 8.1 L (8.5-10.1) mg/dl Total Bilirubin 1.6 H (0.2-1.0) mg/dl Direct Bilirubin (0-0.2) mg/dl AST 34 (13-39) U/L ALT 20 (7-52) U/L Alkaline Phosphatase 195 H (34-104) U/L Ammonia (18-72) umol/L Total Protein 6.1 (6.0-8.3) gm/dl Albumin 2.9 L (3.4-5.0) gm/dl Globulin 3.2 (2.5-4.0) gm/dl Albumin/Globulin Ratio 0.9 (0.9-2) SARS-CoV-2, RNA, NAAT (NEGATIVE) Blood Type O Positive Antibody Screen NEGATIVE Crossmatch See Detail 11/05/22 Range/Units 12:30 WBC 3.05 L (4.8-10.8) K/ul RBC 2.24 L (4.63-6.08) M/uL Hgb 6.6 L* (14.0-18.0) g/dl Hct 22.1 L (40.1-51.0) % MCV 98.7 (80.0-100.0) fL MCH 29.5 (25.0-34.0) pg MCHC 29.9 L (32.0-36.0) g/dL RDW Std Deviation 57.1 H (36.4-46.3) fL RDW Coeff of Violetta 16.0 H (11.5-14.5) % Plt Count 102 L (130-400) K/uL MPV 13.0 H (9.4-12.4) fL Immature Gran % (Auto) % Neut % (Auto) % Lymph % (Auto) % Kleberg % (Auto) % Eos % (Auto) % Baso % (Auto) % Neut # (Auto) (1.4-6.5) K/uL Lymph # (Auto) (1.2-3.4) K/uL Kleberg # (Auto) (0.24-0.82) K/uL Eos # (Auto) (0-0.50) K/uL Baso # (Auto) (0-0.2) K/uL Immature Gran # (Auto) (0.00-0.02) K/uL Platelet Estimate (Normal) Polychromasia Tear Drop Cells Ovalocytes PT (9.0-12.0) Seconds INR (0.9-1.1) APTT (21.0-31.0) Seconds PTT Ratio Sodium (136-145) mmol/L Potassium (3.5-5.1) mmol/L Chloride (98-107) mmol/L Carbon Dioxide (21-32) mmol/L Anion Gap (3-11) BUN (6-23) mg/dl Creatinine (0.6-1.4) mg/dl Est Cr Clr Drug Dosing Est GFR ( Amer) ml/min Est GFR (Non-Af Amer) ml/min BUN/Creatinine Ratio (10-20) Glucose (70-99(Fasting)) mg/dl POC Glucose (70-99) mg/dl Calcium (8.5-10.1) mg/dl Total Bilirubin (0.2-1.0) mg/dl Direct Bilirubin (0-0.2) mg/dl AST (13-39) U/L ALT (7-52) U/L Alkaline Phosphatase (34-104) U/L Ammonia (18-72) umol/L Total Protein (6.0-8.3) gm/dl Albumin (3.4-5.0) gm/dl Globulin (2.5-4.0) gm/dl Albumin/Globulin Ratio (0.9-2) SARS-CoV-2, RNA, NAAT (NEGATIVE) Blood Type Antibody Screen Crossmatch (1) Cirrhosis Ascites presence: with ascites Hepatic cirrhosis type: unspecified hepatic cirrhosis Qualified Code(s): K74.60 - Unspecified cirrhosis of liver; R18.8 - Other ascites
[2022-11-06] MEDS ORDERED: LAVAGE SOLUTION 4000ML PO SCH ×2 (17:00)
[2022-11-06] MEDS: cefTRIAXone SODIUM 2,000 MG in DEXTROSE 5% 50 ML IV SCH (20:03)
--- NOTE | 2022-11-06 23:55 | Hospitalist Progress Note ---
Date of Service November 06, 2022 Assessment & Plan (1) Blood loss anemia: Plan: history of chronic anemia that required multiple transfusions this fall, most recent 09/12/22. 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 He was sent to the ER by PCP for abnormal lab results Hemoglobin on admission 6.6 Patient reported to have intermittent dark stools and hematuria Status post 2 unit PRBC yesterday in the ER Hemoglobin today 7.8 Continue on clear liquid diet, GI on board-plan for EGD and colonoscopy tomorrow to eval for source of GIB We will make n.p.o. after midnight Continue PPI twice daily Continue monitor H&H (2) 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: Plan: Currently follows with transplant - Continue outpatient diuretic regimen with close monitoring of fluid status and renal function - last paracentesis last week - Continue Lactulose and Xifaxan - Appreciate GI assistance with management - will need f/u with IR at discharge due to concerns with TIPs s/p recent revision and its current functioning - Empiric ceftriaxone in case of possible SBP for now (3) T2DM (type 2 diabetes mellitus): Plan: - Insulin sliding scale - BSC ACHS (4) CKD (chronic kidney disease) stage 3, GFR 30-59 ml/min: Plan: Follow labs (5) GERD (gastroesophageal reflux disease): Plan: Continue PPI (6) Pancytopenia: (7) GAVE (gastric antral vascular ectasia): Plan: s/p prior APC in September (8) Esophageal varices: Plan: Hx beta-jassi intolerance due to hypotension Code status: Full code DVT prophylaxis: SCDs due to concern for possible GI bleed Admission and Anticipated Discharge Date Admission Date: November 05, 2022 Subjective Patient was seen and evaluated for follow-up of low hemoglobin Lying in bed comfortable with no acute distress Patient said that he feels okay Denies any chest pain, palpitation, dizziness, shortness of breath. Review of Systems Review of Systems: All systems reviewed & are unremarkable except as noted in Subjective Physical Exam Physical Exam: General- No acute distress Head- atraumatic Eyes- PERRL, EOMI, ENT- oropharynx clear Neck- supple, no JVD Lungs- clear to auscultation Heart- regular rhythm; +murmur Abdomen- normal bowel sounds, soft, nontender Extremities- no calf tenderness, +edema Neuro- alert, oriented x 3; PERRL, EOMI; no facial palsy; no dysarthria Skin- warm & dry Results & Data Results & Data ([facility]) Vital Signs (Past 12 Hours) Vital Signs Temp Pulse Resp BP BP Pulse Ox O2 Del Method 11/06/22 22:54 36.7 C 62 18 104/59 L 98 Room Air 11/06/22 20:10 Room Air 11/06/22 19:30 36.9 C 53 L 18 124/70 95 Room Air 11/06/22 15:28 37.1 C 63 18 112/59 L 97 Room Air (1) GERD (gastroesophageal reflux disease) Esophagitis presence: esophagitis presence not specified Qualified Code(s): K21.9 - Gastro-esophageal reflux disease without esophagitis
[2022-11-07 06:11] LABS: Basophils # (auto) 0.01 K/uL (0-0.2); Basophils % (auto) 0.3 %; Eosinophils # (auto) 0.36 K/uL (0-0.50); Eosinophils % (auto) 11.4 %; Hematocrit (blood only) 24.3 % (40.1-51.0); Hemoglobin 7.7 g/dl (14.0-18.0); Immature Granulocytes # (auto) 0.02 K/uL (0.00-0.02); Immature Granulocytes % (auto) 0.6 %; Lymphocytes # (auto) 0.72 K/uL (1.2-3.4); Lymphocytes % (auto) 22.7 %; Mean Platelet Volume 12.9 fL (9.4-12.4); Monocytes # (auto) 0.33 K/uL (0.24-0.82); Monocytes % (auto) 10.4 %; Neutrophils # (auto) 1.73 K/uL (1.4-6.5); Neutrophils % (auto) 54.6 %; Platelet Count 88 K/uL (130-400); White Blood Count 3.17 K/ul (4.8-10.8)
[2022-11-07 06:29] LABS: Albumin Level 2.6 gm/dl (3.4-5.0); BUN Creatinine Ratio 18.9 (10-20); Bilirubin Direct 0.6 mg/dl (0-0.2); Bilirubin,Total 2.3 mg/dl (0.2-1.0); Calcium 7.8 mg/dl (8.5-10.1); Creatinine Clr Calc Pharmacy 48.2 ml/min; Est GFR (African American) 56.3 ml/min; Est GFR (Non-African American) 48.6 ml/min; Total Protein 5.4 gm/dl (6.0-8.3)
[2022-11-07 07:31] LABS: Mean Corpuscular Hemoglobin 29.8 pg (25.0-34.0); Mean Corpuscular Hgb Conc 31.7 g/dL (32.0-36.0); Mean Corpuscular Volume 94.2 fL (80.0-100.0); Ovalocytes 1+; Polychromasia 1+; RDW Coefficient of Variation 15.8 % (11.5-14.5); RDW Standard Deviation 53.8 fL (36.4-46.3); Red Blood Count 2.58 M/uL (4.63-6.08); Tear Drop Cells 1+
[2022-11-07] MEDS: FUROSEMIDE 20 MG TAB PO SCH ×2 (07:40→21:07)
[2022-11-07] MEDS: CITALOPRAM 20 MG TAB PO SCH (07:40)
[2022-11-07] MEDS: FINASTERIDE 5 MG TAB PO SCH (07:40)
[2022-11-07] MEDS: rifAXIMin 550 MG TABLET PO SCH ×2 (07:41→21:07)
[2022-11-07] MEDS: LACTULOSE SYRUP 10 GM/15 ML BTL 960 ML PO SCH ×2 (07:41→21:08)
[2022-11-07] MEDS: SPIRONOLACTONE 25 MG TAB PO SCH ×2 (07:41→21:07)
[2022-11-07] MEDS: INSULIN ASPART PER UNIT SC SCH ×4 (07:42→21:09)
[2022-11-07] MEDS: allopurinoL 100 MG TAB PO SCH ×2 (07:42→21:07)
[2022-11-07] MEDS: PANTOprazole 40 MG in SYRINGE 0 ML IV SCH ×2 (08:33→21:07)
--- NOTE | 2022-11-07 10:51 | History & Physical Bridge Note ---
Date of Service November 07, 2022 History & Physical Bridge Note I have examined the patient, reviewed the History & Physical and in the interval since the performance of the History & Physical I have noted the following changes of clinical significance: no changes noted EGD/colonoscopy Patient was explained in detail regarding risks, benefits, limitations and alternatives of the above endoscopic procedure. Risks of intravenous sedation used for procedure were also explained. Risks include, but not limited to perforation, bleeding, infection, respiratory distress, cardiac arrest and . Patient is also aware about the possibility of missed lesion. Patient's questions were answered. The patient verbalized understanding the information and agreed to undergo the procedure.
[2022-11-07] MEDS ORDERED: LIDOCAINE 2% MPF LOCAL 5 ML VIAL INFIL ONE (11:10)
[2022-11-07] MEDS ORDERED: PROPOFOL IV EMULSION 10 MG/ML 20 ML VIAL IV ONE (11:10)
--- NOTE | 2022-11-07 11:12 | Anesthesiology Consultation ---
Date of Service November 07, 2022 Assessment & Plan ASA ASA4 Proposed Anesthesia Anesthesia Type: MAC Risk / Benefits Reviewed With: PT / POA / Parent / Guardian, Accepts Plan and Informed Consent Obtained History Surgery Operation Date: 11/07/22 16:30 Proposed Procedures p Colonoscopy EGD Dr. Clarke - Miguel Clarke MD Height/Weight Height: 5 ft 10 in Weight: 84.9 kg Allergies Allergy/AdvReac Type Severity Reaction Status Date / Time No Known Allergies Allergy Mild Verified 11/05/22 15:01 Medications Home Medications Medication Instructions Recorded Confirmed Last Taken citalopram 10 mg tablet (Celexa) 10 mg PO QAM 03/24/20 11/05/22 04/11/22 allopurinol 100 mg tablet 100 mg PO BID 05/16/20 11/05/22 04/11/22 rifaximin 550 mg tablet (Xifaxan) 550 mg PO BID 12/08/20 11/05/22 04/11/22 finasteride 5 mg tablet 5 mg PO QAM 11/03/21 11/05/22 04/11/22 lactulose 10 gram/15 mL oral 15 ml PO BID 03/13/22 11/05/22 Unknown solution furosemide 20 mg tablet (Lasix) 20 mg PO BID 11/02/22 11/05/22 Unknown spironolactone 25 mg tablet 25 mg PO BID 11/02/22 11/05/22 Unknown insulin glargine 100 unit/mL 10 unit subcut QPM 11/05/22 11/05/22 Unknown subcutaneous solution (Lantus U-100 Insulin) pantoprazole 40 mg tablet,delayed 40 mg PO DAILY 11/05/22 11/05/22 Unknown release Active Medications Generic Name Dose Route Start Last Admin Trade Name Freq PRN Reason Stop Dose Admin Allopurinol 100 mg 11/05/22 21:00 11/07/22 07:42 Allopurinol 100 Mg Tab PO 12/05/22 20:59 100 mg BID JODI Administration Citalopram Hydrobromide 10 mg 11/06/22 09:00 11/07/22 07:40 Citalopram 20 Mg Tab PO 12/06/22 08:59 10 mg QAM JODI Administration Finasteride 5 mg 11/06/22 09:00 11/07/22 07:40 Finasteride 5 Mg Tab PO 12/06/22 08:59 5 mg QAM JODI Administration Furosemide 20 mg 11/06/22 09:00 11/07/22 07:40 Furosemide 20 Mg Tab PO 12/06/22 08:59 20 mg BID JODI Administration Pantoprazole Sodium 40 mg/ 10 mls @ 5 mls/min 11/05/22 21:00 11/07/22 08:33 Syringe IV 12/05/22 20:59 5 mls/min BID JODI Administration Ceftriaxone Sodium 2,000 mg/ 70 mls @ 140 mls/hr 11/05/22 19:15 11/06/22 20:50 Dextrose IV 11/15/22 19:14 Infused Q24H JODI Infusion Promethazine HCl 12.5 mg/ 50.5 mls @ 202 mls/hr 11/06/22 00:48 11/06/22 03:04 Sodium Chloride IV 12/06/22 00:47 Infused Q6H PRN Infusion Nausea And Vomiting Insulin Aspart 0 units 11/05/22 21:00 11/07/22 07:42 Insulin Aspart Per Unit SC 12/05/22 20:59 Not Given ACHS JODI Lactulose 10 gm 11/05/22 21:00 11/07/22 07:41 Lactulose Syrup 10 Gm/15 Ml Btl 960 Ml PO 12/05/22 20:59 10 gm BID JODI Administration Rifaximin 550 mg 11/05/22 21:00 11/07/22 07:41 Rifaximin 550 Mg Tablet PO 12/05/22 20:59 550 mg BID JODI Administration Spironolactone 25 mg 11/06/22 09:00 11/07/22 07:41 Spironolactone 25 Mg Tab PO 12/06/22 08:59 25 mg BID JODI Administration NPO Date Last Intake of Fluids: 11/06/22 Time Last Intake of Fluids: 23:00 Date Last Intake of Solids: 11/04/22 Time Last Intake of Solids: 17:00 Past Medical History Medical History Anemia Anemia of chronic disease 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 CKD (chronic kidney disease) stage 3, GFR 30-59 ml/min DVT prophylaxis Esophageal varices Esophageal varices GAVE (gastric antral vascular ectasia) GERD (gastroesophageal reflux disease) Gout NO ISSUES CURRENTLY History of panic attacks Hyperosmolar hyperglycemic state (HHS) Hypertension Prostate cancer (11/10/20) Psoriasis Rectal bleeding Shortness of breath Upper GI bleed Exercise / Class Metabolic Activity II 4-5 Yardwork/Stairs/Walk up hill Past Family History Family History Father , "3/4 liver gone due to drinking" Colorectal cancer, Onset Age: 63 Mother Lung cancer Daughter Cancer cervical and thyroid cancers Ovarian cancer Other No family history of adverse response to anesthesia Past Surgical History Surgical History History of abdominal paracentesis multiple History of colonoscopy with polypectomy History of esophagogastroduodenoscopy (EGD) last 10/25 revealed grade 2 esophageal varices, grade 1 gastric varices STABLE History of prostate biopsy malignant History of tonsillectomy and adenoidectomy S/P TIPS (transjugular intrahepatic portosystemic shunt) Past Anesthesia History No Hx of Anesthesia Complications and No Family Hx of Anesthesia Complications History of PONV No Hx of PONV and No Hx of Motion Sickness 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 Smoking Status: Unknown if ever smoked Hx Alcohol Use: No Hx Substance Use: No substance use type: does not use Review of Systems denies fever/cough/ colds/ chest pain/ SOB/ ESTELLE denies ESTELLE Physical Exam Vital Signs Last Vital Signs Temp 36.8 C 11/07/22 11:02 Pulse 62 11/07/22 11:02 Resp 16 11/07/22 11:02 BP 133/56 L 11/07/22 11:02 Pulse Ox 99 11/07/22 11:02 O2 Del Method 11/07/22 11:02 ENMT Mouth: no TMJ abnormality and no dentition abnormality Thyromental Distance: > or= 3.5 Finger Breadths Mallampati Class: II Neck + facial hair; neck extension not limited Respiratory normal respiratory effort; no respiratory distress Auscultation: lungs clear to auscultation bilaterally Cardiovascular Rate/Rhythm: regular rate and regular rhythm Neurologic moves all extremities Psychiatric Orientation: alert and oriented x 3 Testing Laboratory Results 11/07/22 05:46 11/07/22 05:46 PT 12.0 Seconds (9.0-12.0) 11/05/22 12:30 INR 1.1 (0.9-1.1) 11/05/22 12:30 APTT 26.4 Seconds (21.0-31.0) 11/05/22 12:30 Blood Type O Positive 11/05/22 12:33 Antibody Screen NEGATIVE 11/05/22 12:33 11/07/22 07:33 POC Glucose 122 H
--- NOTE | 2022-11-07 11:54 | GI REPORT ---
Patient Name: Luis Hale Procedure Date: 11/07/2022 10:52 AM Date of : 1950 Admit Type: Inpatient Age: 72 Gender: Male Attending MD: Miguel Clarke MD, Procedure: Upper GI endoscopy Providers: Miguel Clarke MD Referring MD: LITTLE LYON Indications: Anemia Medicines: Propofol per Anesthesia Complications: No immediate complications. Estimated Blood Loss: Estimated blood loss: none. Procedure: Pre-Anesthesia Assessment: - Prior to the procedure, a History and Physical was performed, and patient medications, allergies and sensitivities were reviewed. The patient's tolerance of previous anesthesia was reviewed. - The risks and benefits of the procedure and the sedation options and risks were discussed with the patient. All questions were answered and informed consent was obtained. - Patient identification and proposed procedure were verified prior to the procedure by the physician and the nurse. The procedure was verified in the procedure room. - Pre-procedure physical examination revealed no contraindications to sedation. After obtaining informed consent, the endoscope was passed under direct vision. Throughout the procedure, the patient's blood pressure, pulse, and oxygen saturations were monitored continuously. The Scope was introduced through the mouth, and advanced to the second part of duodenum. The upper GI endoscopy was accomplished without difficulty. The patient tolerated the procedure well. Findings: Grade III varices were found in the lower third of the esophagus. Two bands were successfully placed with complete eradication, resulting in deflation of varices. There was no bleeding during the procedure. Moderate gastric antral vascular ectasia with bleeding was present in the gastric antrum. Vaporization for hemostasis using argon plasma was successful. The duodenal bulb and second portion of the duodenum were normal. Impression: - Grade III esophageal varices. Banded. - Gastric antral vascular ectasia with bleeding. Treated with argon plasma coagulation (APC). - Normal duodenal bulb and second portion of the duodenum. - No specimens collected. Recommendation: - Clear liquid diet for 1 day, then advance as tolerated to full liquid diet for 1 day. - No aspirin, ibuprofen, naproxen, or other non-steroidal anti-inflammatory drugs for 5 days. - Follow an antireflux regimen. - Use Protonix (pantoprazole) 40 mg PO BID for 3 months. - Use sucralfate suspension 1 gram PO BID for 2 weeks. - Repeat upper endoscopy in 2 months for retreatment. Miguel Clarke MD 11/07/2022 11:54:13 AM This report has been signed electronically. Note Initiated On: 11/07/2022 10:52 AM Number of Addenda: 0 I attest to the content of the Intraoperative Record and orders documented therein, exceptions below {[id number]}
--- NOTE | 2022-11-07 11:57 | GI REPORT ---
Patient Name: Luis Hale Procedure Date: 11/07/2022 10:51 AM Date of : 1950 Admit Type: Inpatient Age: 72 Gender: Male Attending MD: Miguel Clarke MD, Procedure: Colonoscopy Providers: Miguel Clarke MD Referring MD: LITTLE LYON Indications: Rectal bleeding Medicines: Propofol per Anesthesia Complications: No immediate complications. Estimated Blood Loss: Estimated blood loss: none. Procedure: Pre-Anesthesia Assessment: - Prior to the procedure, a History and Physical was performed, and patient medications, allergies and sensitivities were reviewed. The patient's tolerance of previous anesthesia was reviewed. - The risks and benefits of the procedure and the sedation options and risks were discussed with the patient. All questions were answered and informed consent was obtained. - Patient identification and proposed procedure were verified prior to the procedure by the physician and the nurse. The procedure was verified in the procedure room. - Pre-procedure physical examination revealed no contraindications to sedation. After I obtained informed consent, the scope was passed under direct vision. Throughout the procedure, the patient's blood pressure, pulse, and oxygen saturations were monitored continuously. The Colonoscope was introduced through the anus and advanced to the terminal ileum. The colonoscopy was performed without difficulty. The patient tolerated the procedure well. The quality of the bowel preparation was poor. The terminal ileum, ileocecal valve, appendiceal orifice, and rectum were photographed. Findings: The perianal and digital rectal examinations were normal. The terminal ileum appeared normal. Scattered small and large-mouthed diverticula were found in the sigmoid colon. Multiple angioectasias with bleeding were found in the rectum. Vaporization for hemostasis using argon plasma was successful. Impression: - Preparation of the colon was poor. - The examined portion of the ileum was normal. - Diverticulosis in the sigmoid colon. - Rectal angioectasias consistent with radiation proctopathy. Treated with argon plasma coagulation (APC). - No specimens collected. Recommendation: - Return patient to [facility] for ongoing care. - Use Canasa supp for 2 weeks. Miguel Clarke MD 11/07/2022 11:57:02 AM This report has been signed electronically. Note Initiated On: 11/07/2022 10:51 AM Number of Addenda: 0 I attest to the content of the Intraoperative Record and orders documented therein, exceptions below {[id number]}
--- NOTE | 2022-11-07 12:28 | Anesthesiology Progress Note ---
Date of Service November 07, 2022 Anesthesia Post Procedure Vital Signs Vital Signs: Temp Pulse Pulse Resp BP BP Pulse Ox 11/07/22 12:21 16 123/52 L 97 11/07/22 12:06 16 115/49 L 115/49 L 96 11/07/22 11:51 66 14 126/52 L 100 11/07/22 11:02 36.8 C 62 16 133/56 L 99 11/07/22 07:42 36.7 C 83 20 110/51 L 96 11/07/22 06:23 37 C 69 18 125/55 L 96 11/07/22 02:55 36.7 C 93 H 18 90/40 L 96 11/07/22 00:05 60 11/06/22 22:54 36.7 C 62 18 104/59 L 98 11/06/22 20:10 11/06/22 19:30 36.9 C 53 L 18 124/70 95 11/06/22 15:28 37.1 C 63 18 112/59 L 97 O2 Del Method 11/07/22 12:21 Room Air 11/07/22 12:06 Room Air 11/07/22 11:51 Room Air 11/07/22 11:02 Room Air 11/07/22 07:42 Room Air 11/07/22 06:23 Room Air 11/07/22 02:55 Room Air 11/07/22 00:05 11/06/22 22:54 Room Air 11/06/22 20:10 Room Air 11/06/22 19:30 Room Air 11/06/22 15:28 Room Air Transfer of Care Handoff Completed per policy Notes Mental Status: alert / awake / arousable and participated in evaluation Patient Amnestic to Procedure: Yes Nausea / Vomiting: adequately controlled Pain: adequately controlled Airway Patency, RR, SpO2: stable & adequate BP & HR: stable & adequate Hydration State: stable & adequate Anesthetic Complications: no major complications apparent and Pt Satisfied with anesthetic care
--- NOTE | 2022-11-07 16:49 | Hospitalist Progress Note ---
Date of Service November 07, 2022 Assessment & Plan (1) Blood loss anemia: Plan: history of chronic anemia that required multiple transfusions this fall, most recent 09/12/22. 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 He was sent to the ER by PCP for abnormal lab results Hemoglobin on admission 6.6 Patient reported to have intermittent dark stools and hematuria Status post 2 unit PRBC during the admission course Hemoglobin today 7.7 GI on board Status post EGD done today showed Grade III esophageal varices. Banded. Gastric antral vascular ectasia with bleeding. Treated with argon plasma coagulation (APC). Status post colonoscopy showed scattered small and large-mouthed diverticula were found in the sigmoid colon. Multiple angioectasias with bleeding were found in the rectum. Vaporization for hemostasis using argon plasma was successful. GI recommend to start on clear liquid diet for 1 day then advance as tolerated to full liquid diet for 1 day. No aspirin, ibuprofen, naproxen, or other non-steroidal anti-inflammatory drugs for 5 days. 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: Plan: Liver enzymes stable Currently follows with transplant Continue outpatient diuretic regimen with close monitoring of fluid status and renal function - last paracentesis last week Continue Lactulose and Xifaxan Appreciate GI assistance with management - will need f/u with IR at discharge due to concerns with TIPs s/p recent revision and its current functioning Empiric ceftriaxone in case of possible SBP for now, will consider to d/c antibiotic (3) T2DM (type 2 diabetes mellitus): Plan: Most recent hemoglobin A1c 4.9 on 08/2022 Continue Lantus and insulin sliding scale during the hospital course Continue monitor blood sugar (4) CKD (chronic kidney disease) stage 3, GFR 30-59 ml/min: Plan: Creatinine 1.43 today Avoid nephrotoxic agent Continue monitor BMP (5) GERD (gastroesophageal reflux disease): Plan: Continue PPI (6) Pancytopenia: (7) GAVE (gastric antral vascular ectasia): Plan: s/p prior APC in September (8) Esophageal varices: Plan: Hx beta-jassi intolerance due to hypotension Code status: Full code DVT prophylaxis: SCDs due to concern for possible GI bleed Admission and Anticipated Discharge Date Admission Date: November 05, 2022 Subjective Patient was seen and evaluated for follow-up of low hemoglobin Lying in bed comfortable with no acute distress Patient said that he feels okay He had EGD and colonoscopy done this morning Denies any chest pain, palpitation, dizziness, shortness of breath. Review of Systems Review of Systems: All systems reviewed & are unremarkable except as noted in Subjective Physical Exam Physical Exam: General- No acute distress Head- atraumatic Eyes- PERRL, EOMI, ENT- oropharynx clear Neck- supple, no JVD Lungs- clear to auscultation Heart- regular rhythm; +murmur Abdomen- normal bowel sounds, soft, nontender Extremities- no calf tenderness Neuro- alert, oriented x 3; PERRL, EOMI; no facial palsy; no dysarthria Skin- warm & dry Results & Data Results & Data ([facility]) Vital Signs (Past 12 Hours) Vital Signs Temp Pulse Resp BP BP Pulse Ox O2 Del Method 11/07/22 15:29 36.4 C L 61 18 121/63 98 Room Air 11/07/22 12:21 16 123/52 L 97 Room Air 11/07/22 12:06 16 115/49 L 115/49 L 96 Room Air 11/07/22 11:51 66 14 126/52 L 100 Room Air 11/07/22 11:02 36.8 C 62 16 133/56 L 99 Room Air 11/07/22 07:42 36.7 C 83 20 110/51 L 96 Room Air 11/07/22 06:23 37 C 69 18 125/55 L 96 Room Air (1) GERD (gastroesophageal reflux disease) Esophagitis presence: esophagitis presence not specified Qualified Code(s): K21.9 - Gastro-esophageal reflux disease without esophagitis
[2022-11-07] MEDS: cefTRIAXone SODIUM 2,000 MG in DEXTROSE 5% 50 ML IV SCH (19:08)
[2022-11-07] MEDS ORDERED: MESALAMINE 4 GM/60 ML ENEMA PR SCH (20:00)
[2022-11-08] MEDS: PROMETHAZINE HCL 12.5 MG in SODIUM CHLORIDE 0.9% 50 ML IV PRN (04:28)
[2022-11-08 07:09] LABS: Basophils # (auto) 0.01 K/uL (0-0.2); Basophils % (auto) 0.3 %; Eosinophils # (auto) 0.25 K/uL (0-0.50); Hemoglobin 7.6 g/dl (14.0-18.0); Immature Granulocytes # (auto) 0.02 K/uL (0.00-0.02); Immature Granulocytes % (auto) 0.6 %; Lymphocytes # (auto) 0.66 K/uL (1.2-3.4); Lymphocytes % (auto) 18.4 %; Mean Platelet Volume 12.5 fL (9.4-12.4); Monocytes # (auto) 0.32 K/uL (0.24-0.82); Monocytes % (auto) 8.9 %; Neutrophils # (auto) 2.33 K/uL (1.4-6.5); Neutrophils % (auto) 64.8 %; Platelet Count 89 K/uL (130-400); White Blood Count 3.59 K/ul (4.8-10.8)
[2022-11-08 07:30] LABS: Albumin Level 2.6 gm/dl (3.4-5.0); BUN Creatinine Ratio 16.1 (10-20); Bilirubin Direct 0.5 mg/dl (0-0.2); Bilirubin,Total 2.4 mg/dl (0.2-1.0); Calcium 7.7 mg/dl (8.5-10.1); Creatinine Clr Calc Pharmacy 46.3 ml/min; Est GFR (African American) 53.6 ml/min; Est GFR (Non-African American) 46.2 ml/min; Potassium 3.9 mmol/L (3.5-5.1); Total Protein 5.7 gm/dl (6.0-8.3)
[2022-11-08 07:39] LABS: Mean Corpuscular Hgb Conc 31.7 g/dL (32.0-36.0); Mean Corpuscular Volume 94.9 fL (80.0-100.0); Ovalocytes 1+; RDW Coefficient of Variation 15.5 % (11.5-14.5); RDW Standard Deviation 53.7 fL (36.4-46.3); Red Blood Count 2.53 M/uL (4.63-6.08); Tear Drop Cells 1+
[2022-11-08] MEDS: PANTOprazole 40 MG in SYRINGE 0 ML IV SCH (08:43)
[2022-11-08] MEDS: CITALOPRAM 20 MG TAB PO SCH (08:43)
[2022-11-08] MEDS: FINASTERIDE 5 MG TAB PO SCH (08:43)
[2022-11-08] MEDS: allopurinoL 100 MG TAB PO SCH (08:44)
[2022-11-08] MEDS: LACTULOSE SYRUP 10 GM/15 ML BTL 960 ML PO SCH (08:44)
[2022-11-08] MEDS: SPIRONOLACTONE 25 MG TAB PO SCH (08:44)
[2022-11-08] MEDS: FUROSEMIDE 20 MG TAB PO SCH (08:44)
[2022-11-08] MEDS: rifAXIMin 550 MG TABLET PO SCH (08:44)
[2022-11-08] MEDS: INSULIN ASPART PER UNIT SC SCH ×2 (08:46→12:12)
[2022-11-08] MEDS ORDERED: SUCRALFATE 1 GM/10 ML UDC PO SCH (09:00)
[2022-11-08 11:34] VITALS: PULSE 61; TEMP 98.8; O2SAT 98
[2022-11-08 11:35] VITALS: BP 97/43
--- NOTE | 2022-11-08 14:33 | Discharge Summary ---
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 He was admitted to this facility in Aug/Sep with confusion due to hepatic encephalopathy. He was also noted to have worsening anemia that was thought to be multifactorial due to chronic rectal bleeding from XRT proctitis, GAVE, and intermittent hematuria. Most recent EGD during that admission, done on 09/11/22, showed grade II esophageal varices in the lower third of the esophagus, severe GAVE for which APC was done. His Hgb post procedure seemed to be stable around 8. He received multiple transfusions during that hospitalization. He was to have a repeat EGD in 3 months. Since discharge, his Hgb appears to have slowly drifted down. Today outpatient Hgb was 6.6 so pt referred to the ED for transfusion and possible additional evaluation. He reports ongoing "occasional" rectal bleeding and hematuria. Last BRBPR was 2-3 days ago and described as a small amount. Also with episode of "pinkish" urine within last week but no passing of clots. This does not seem to be increasing in frequency. He continues to have recurrent issues with ascites with most recent paracentesis three days ago during which 5.6L of ascitic fluid was removed. He reports improved in abdominal discomfort and respiratory status s/p procedure. He reports feeling cold with frequent "chills" over the last couple of weeks. Denies fevers. No change in ongoing issues with weakness and fatigue. He does note PRITCHETT but reports this is an ongoing issue. Appetite is at baseline. No recent falls or syncopal episodes. Mild lightheadedness if he doesn't eat. Sugars have been running over 200 recently so pt increased his baseline Lantus from 7 to 10 units which seems to have helped. Admission Exam Per Admitting Provider Constitutional: + thin; no acute distress Eyes: + anicteric sclerae Neck: trachea midline Respiratory: no respiratory distress and no labored breathing Auscultation: lungs clear to auscultation bilaterally; no rales, no rhonchi and no wheezes Cardiovascular: Rate/Rhythm: regular rate and regular rhythm Heart Sounds: + murmur Vessels: radial pulses present Extremities: + edema (2+) Gastrointestinal (Abdomen): Inspection/Auscultation: + abdomen distended and normal bowel sounds Percussion/Palpation: abdomen soft and + fluid wave; abdomen nontender Musculoskeletal: Head/Neck/Chest: normocephalic, head atraumatic and neck supple Skin: mildly erythematous scaly maculopapular rash on abdomen, extensor surfaces of arms Neurologic: moves all extremities; no focal motor deficits and not confused Psychiatric: A+Ox3, euthymic affect Discharge Data Allergies Allergy/AdvReac Type Severity Reaction Status Date / Time No Known Allergies Allergy Mild Verified 11/05/22 15:01 Consultations 11/05/22 15:44 ED Decision to Admit Stat 11/05/22 17:17 Consult Gastroenterology Routine Procedures Performed Operation Date: 11/07/22 16:30 Actual Procedures p EGD Hemostasis - Miguel Clarke MD s Colonoscopy - Miguel Clarke MD Hospital Course (1) Blood loss anemia: history of chronic anemia that required multiple transfusions this fall, most recent 09/12/22. 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 He was sent to the ER by PCP for abnormal lab results Hemoglobin on admission 6.6 Patient reported to have intermittent dark stools and hematuria Status post 2 unit PRBC during the admission course Hemoglobin today 7.7 GI on board Status post EGD done today showed Grade III esophageal varices. Banded. Gastric antral vascular ectasia with bleeding. Treated with argon plasma coagulation (APC). Status post colonoscopy showed scattered small and large-mouthed diverticula were found in the sigmoid colon. Multiple angioectasias with bleeding were found in the rectum. Vaporization for hemostasis using argon plasma was successful. GI recommend to start on clear liquid diet for 1 day then advance as tolerated to full liquid diet for 1 day. No aspirin, ibuprofen, naproxen, or other non-steroidal anti-inflammatory drugs for 5 days. 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: Liver enzymes stable Currently follows with transplant Continue outpatient diuretic regimen with close monitoring of fluid status and renal function - last paracentesis last week Continue Lactulose and Xifaxan Appreciate GI assistance with management - will need f/u with IR at discharge due to concerns with TIPs s/p recent revision and its current functioning Empiric ceftriaxone in case of possible SBP for now, will consider to d/c antibiotic (3) T2DM (type 2 diabetes mellitus): Most recent hemoglobin A1c 4.9 on 08/2022 Continue Lantus and insulin sliding scale during the hospital course Continue monitor blood sugar (4) CKD (chronic kidney disease) stage 3, GFR 30-59 ml/min: Creatinine 1.43 today Avoid nephrotoxic agent Continue monitor BMP (5) GERD (gastroesophageal reflux disease): Continue PPI (6) Pancytopenia: (7) GAVE (gastric antral vascular ectasia): s/p prior APC in September (8) Esophageal varices: Hx beta-jassi intolerance due to hypotension Code status: Full code DVT prophylaxis: SCDs due to concern for possible GI bleed Discharge Plan Discharge Items Patient Disposition: Home - Self-Care Reason For Visit: BLOOD LOSS ANEMIA Discharge Diagnosis: Blood loss anemia Grade 3 esophageal varices Gastric antral vascular ectasia with bleeding. Radiation proctopathy Activity: Resume your previous activity Non-emergency contact: Primary Care Provider Call non-emergency contact if: you have any medication questions and your symptoms worsen Follow-up/Referrals: Francisco Cisse MD [Primary Care Provider] - Diet: Regular Addtl Attending Provider Instructions: You were admitted to the hospital with low hemoglobin. You were transfused 2 units of packed RBC. Your hemoglobin has been stable in the last 3 days around 7. Endoscopy was done on 11/07 which showed grade 3 esophageal varices which was banded, gastric antral vascular ectasia with bleeding which was treated with argon plasma coagulation. You are prescribed Protonix 40 mg to be taken twice daily for next 3 months. Also, you are prescribed sucralfate suspension 1 g twice daily to be taken for 2 weeks. Please take full liquid diet for today. You can start normal diet tomorrow. The colonoscopy done on 11/07 showed rectal angiectasis consistent with radiation proctopathy. You are prescribed mesalamine to be used rectally for 2 weeks. You will receive call from GI doctor's office to schedule for repeat endoscopy for repeat You have appointment with your PCP doctor 11/14/2022 at 11:20 am. Pending Studies at Discharge: No Stand-Alone Forms: [facility], Smoking Cessation Medications and DC Order Prescriptions: New mesalamine 4 gram/60 mL Enema 1 g LA 1999 14 Days Qty: 210 0RF sucralfate 100 mg/mL Suspension 1 g PO BID 14 Days Qty: 280 0RF Continued citalopram [Celexa] 10 mg tablet 10 mg PO QAM lactulose 10 gram/15 mL solution 15 ml PO BID allopurinol 100 mg Tablet 100 mg PO BID Xifaxan 550 mg tablet 550 mg PO BID Label Comments: Part of the "FOFANA" regimen to remove impurities furosemide [Lasix] 20 mg Tablet 20 mg PO BID spironolactone 25 mg Tablet 25 mg PO BID finasteride 5 mg Tablet 5 mg PO QAM insulin glargine [Lantus U-100 Insulin] 100 unit/mL solution 10 unit subcut QPM Changed pantoprazole 40 mg tablet,delayed release (DR/EC) 40 mg PO BID 90 Days Qty: 180 0RF Discharge Orders: Discharge Order (Routine); Ordered 11/08/22 Ordered By: Marcus Sheppard Admission Data Admit Date/Time: 11/05/22 16:43 Attending Provider: Marcus Sheppard Admit Provider: Crystal Delaney Primary Care Provider: Francisco Cisse Other Providers: Crystal Delaney ; Miguel Clarke Other Interventions: Discharge Summary Assessment (RN) Last Done: 11/08/22 11:34
--- NOTE | 2022-11-08 14:40 | Discharge Summary ---
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 He was admitted to this facility in Aug/Sep with confusion due to hepatic encephalopathy. He was also noted to have worsening anemia that was thought to be multifactorial due to chronic rectal bleeding from XRT proctitis, GAVE, and intermittent hematuria. Most recent EGD during that admission, done on 09/11/22, showed grade II esophageal varices in the lower third of the esophagus, severe GAVE for which APC was done. His Hgb post procedure seemed to be stable around 8. He received multiple transfusions during that hospitalization. He was to have a repeat EGD in 3 months. Since discharge, his Hgb appears to have slowly drifted down. Today outpatient Hgb was 6.6 so pt referred to the ED for transfusion and possible additional evaluation. He reports ongoing "occasional" rectal bleeding and hematuria. Last BRBPR was 2-3 days ago and described as a small amount. Also with episode of "pinkish" urine within last week but no passing of clots. This does not seem to be increasing in frequency. He continues to have recurrent issues with ascites with most recent paracentesis three days ago during which 5.6L of ascitic fluid was removed. He reports improved in abdominal discomfort and respiratory status s/p procedure. He reports feeling cold with frequent "chills" over the last couple of weeks. Denies fevers. No change in ongoing issues with weakness and fatigue. He does note PRITCHETT but reports this is an ongoing issue. Appetite is at baseline. No recent falls or syncopal episodes. Mild lightheadedness if he doesn't eat. Sugars have been running over 200 recently so pt increased his baseline Lantus from 7 to 10 units which seems to have helped. Admission Exam Per Admitting Provider Constitutional: + thin; no acute distress Eyes: + anicteric sclerae Neck: trachea midline Respiratory: no respiratory distress and no labored breathing Auscultation: lungs clear to auscultation bilaterally; no rales, no rhonchi and no wheezes Cardiovascular: Rate/Rhythm: regular rate and regular rhythm Heart Sounds: + murmur Vessels: radial pulses present Extremities: + edema (2+) Gastrointestinal (Abdomen): Inspection/Auscultation: + abdomen distended and normal bowel sounds Percussion/Palpation: abdomen soft and + fluid wave; abdomen nontender Musculoskeletal: Head/Neck/Chest: normocephalic, head atraumatic and neck supple Skin: mildly erythematous scaly maculopapular rash on abdomen, extensor surfaces of arms Neurologic: moves all extremities; no focal motor deficits and not confused Psychiatric: A+Ox3, euthymic affect Principal Diagnosis Blood loss anemia Grade 3 esophageal varices Gastric antral vascular ectasia with bleeding. Radiation proctopathy Discharge Exam Constitutional: WD/WN, vitals as above, NAD, sitting up in bed, pleasant, conversing easily Respiratory: normal respiratory effort, lungs clear to auscultation, no wheeze, rales, rhonchi. Normal insp/exp effort, no accessory muscle use Cardiovascular: RRR, no murmur, no edema Vessels: no JVD or carotid bruit Chest: normal inspection of chest Abdomen: Soft, nontender. Slight distention present. Musculoskeletal: no cyanosis or clubbing, extremities motor strength 5/5 Skin: no rashes, warm and dry normal turgor Neurologic: PERRL, EOMI, accommodation nl, no face palsy, no dysarthria CN's II- XI intact bilaterally and moves all extremities Psychiatric: A+Ox3, euthymic affect Lymphatic: no cervical or axillary lymphadenopathy : deferred Discharge Data Allergies Allergy/AdvReac Type Severity Reaction Status Date / Time No Known Allergies Allergy Mild Verified 11/05/22 15:01 Consultations 11/05/22 15:44 ED Decision to Admit Stat 11/05/22 17:17 Consult Gastroenterology Routine Procedures Performed Operation Date: 11/07/22 16:30 Actual Procedures p EGD Hemostasis - Miguel Clarke MD s Colonoscopy - Miguel Clarke MD Hospital Course (1) Blood loss anemia: (2) 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: (3) T2DM (type 2 diabetes mellitus): (4) CKD (chronic kidney disease) stage 3, GFR 30-59 ml/min: (5) GERD (gastroesophageal reflux disease): (6) Pancytopenia: (7) GAVE (gastric antral vascular ectasia): (8) Esophageal varices: Plan This is a 72 y/o male with a PMH of FOFANA Cirrhosis s/p TIPS x 2, [place] [facility], esophageal varices, multifactorial anemia (blood loss, chronic disease), DM2, 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 Patient received 2 units of packed RBC during the hospitalization. His hemoglobin stabilized around 7.5. GI was consulted; patient underwent endoscopy and colonoscopy on . Patient was found to have grade 3 esophageal varices which were banded. He was also found to have gastric antral vascular ectasia with bleeding; treated with argon plasma coagulation. Patient was recommended to be started on Protonix 40 mg twice daily for 3 months, sucralfate 1 g twice daily for 2 weeks. He will also need repeat upper endoscopy in 2 months for retreatment. Colonoscopy showed rectal angiectasis consistent with radiation proctopathy; treated with argon plasma coagulation. He was recommended to be started on Canasa supplement for 2 weeks. Patient was cleared from GI to be discharged home. Instructions were given to him. Prescription confirmed with pharmacy. Appointment confirmed with PCP next week. Patient verbalized understanding of the instructions. Total Time Total Time Spent Total Time Spent (In Minutes): 35 Total Time Includes: Examination of the Patient, Discharge Planning, Medication Reconciliation, Communication With Other Providers and Other Discharge Plan Discharge Items Patient Disposition: Home - Self-Care Reason For Visit: BLOOD LOSS ANEMIA Discharge Diagnosis: Blood loss anemia Grade 3 esophageal varices Gastric antral vascular ectasia with bleeding. Radiation proctopathy Activity: Resume your previous activity Non-emergency contact: Primary Care Provider Call non-emergency contact if: you have any medication questions and your symptoms worsen Follow-up/Referrals: Francisco Cisse MD [Primary Care Provider] - Diet: Regular Addtl Attending Provider Instructions: You were admitted to the hospital with low hemoglobin. You were transfused 2 units of packed RBC. Your hemoglobin has been stable in the last 3 days around 7. Endoscopy was done on 11/07 which showed grade 3 esophageal varices which was banded, gastric antral vascular ectasia with bleeding which was treated with argon plasma coagulation. You are prescribed Protonix 40 mg to be taken twice daily for next 3 months. Also, you are prescribed sucralfate suspension 1 g twice daily to be taken for 2 weeks. Please take full liquid diet for today. You can start normal diet tomorrow. The colonoscopy done on 11/07 showed rectal angiectasis consistent with radiation proctopathy. You are prescribed mesalamine to be used rectally for 2 weeks. You will receive call from GI doctor's office to schedule for repeat endoscopy for repeat You have appointment with your PCP doctor 11/14/2022 at 11:20 am. Pending Studies at Discharge: No Stand-Alone Forms: My [facility], Smoking Cessation Medications and DC Order Prescriptions: New mesalamine 4 gram/60 mL Enema 1 g ID 1999 14 Days Qty: 210 0RF sucralfate 100 mg/mL Suspension 1 g PO BID 14 Days Qty: 280 0RF Continued citalopram [Celexa] 10 mg tablet 10 mg PO QAM lactulose 10 gram/15 mL solution 15 ml PO BID allopurinol 100 mg Tablet 100 mg PO BID Xifaxan 550 mg tablet 550 mg PO BID Label Comments: Part of the "FOFANA" regimen to remove impurities furosemide [Lasix] 20 mg Tablet 20 mg PO BID spironolactone 25 mg Tablet 25 mg PO BID finasteride 5 mg Tablet 5 mg PO QAM insulin glargine [Lantus U-100 Insulin] 100 unit/mL solution 10 unit subcut QPM Changed pantoprazole 40 mg tablet,delayed release (DR/EC) 40 mg PO BID 90 Days Qty: 180 0RF Discharge Orders: Discharge Order (Routine); Ordered 11/08/22 Ordered By: Marcus Sheppard Admission Data Admit Date/Time: 11/05/22 16:43 Attending Provider: Marcus Sheppard Admit Provider: Crystal Delaney Primary Care Provider: Francisco Cisse Other Providers: Crystal Delaney ; Miguel Clarke Other Interventions: Discharge Summary Assessment (RN) Last Done: 11/08/22 11:34
== END 2022-11-08 12:13 | disposition home or self-care (01) | DRG 378 ==
LOC: ED 12:18 → SUATTDRO 16:43 → EDINP 16:43 → 2S 17:16

== ENCOUNTER 2023-02-24 21:53 | Inpatient (IN) ==
[2023-02-24 22:27] LABS: Basophils # (auto) 0.02 K/uL (0-0.2); Basophils % (auto) 0.6 %; Eosinophils # (auto) 0.26 K/uL (0-0.50); Eosinophils % (auto) 7.3 %; Hematocrit (blood only) 28.2 % (42.0-52.0); Hemoglobin 9.4 g/dl (14.0-18.0); Lymphocytes # (auto) 0.79 K/uL (1.2-3.4); Lymphocytes % (auto) 22.2 %; Mean Corpuscular Hgb Conc 33.3 g/dL (32.0-36.0); Mean Corpuscular Volume 93.1 fL (80.0-100.0); Mean Platelet Volume 11.5 fL (9.4-12.4); Monocytes # (auto) 0.24 K/uL (0.11-0.59); Monocytes % (auto) 6.7 %; Neutrophils # (auto) 2.25 K/uL (1.40-6.50); Neutrophils % (auto) 63.2 %; Platelet Count 86 K/uL (130-400); RDW Coefficient of Variation 20.2 % (11.5-14.5); RDW Standard Deviation 68.9 fL (36.4-46.3); Red Blood Count 3.03 M/uL (4.70-6.10); White Blood Count 3.56 K/ul (4.8-10.8)
[2023-02-24] MEDS ORDERED: SODIUM CHLORIDE 0.9% 1000ML 1,000 ML IV SCH (22:30)
[2023-02-24 22:49] LABS: Albumin Globulin Ratio 0.8 (0.9-2); Albumin Level 3.1 gm/dl (3.4-5.0); BUN Creatinine Ratio 22.5 (10-20); Bilirubin,Total 2.4 mg/dl (0.2-1.0); Calcium 8.6 mg/dl (8.6-10.3); Est GFR (African American) 58.8 ml/min; Est GFR (Non-African American) 50.7 ml/min; Globulin 3.9 gm/dl (2.5-4.0); Magnesium 1.8 mg/dl (1.7-2.4); Potassium 4.3 mmol/L (3.5-5.1)
[2023-02-24 22:50] LABS: Tear Drop Cells 2+
[2023-02-24 22:55] LABS: INR 1.1 (0.9-1.1); Troponin I High Sensitivity 7.9 pg/ml (0-20)
[2023-02-24 22:59] LABS: Appearance Urine Clear (Clear); Bacteria Urine Automated Negative (Negative); Bilirubin Urine Negative (Negative); Blood Urine 3+ (Negative); Color Urine Dark Yellow; Epithelial Cell Urine Auto >30 /lpf (0-5); Glucose Urine UA Negative (Negative); Ketones Urine Negative (Negative); Leukocyte Esterase Urine Negative (Negative); Nitrite Urine Negative (Negative); Protein Urine Negative (Negative); RBC Urine Automated >30 /hpf (0-4); Specific Gravity Urine 1.021 (1.000-1.030); Urobilinogen Urine Negative (Negative)
--- NOTE | 2023-02-24 23:42 | CT Scan Report ---
Exam(s): CT HEAD Without Contrast EXAM: CT Head Without Intravenous Contrast CLINICAL HISTORY: Reason for exam: AMS. TECHNIQUE: Axial computed tomography images of the head/brain without intravenous contrast. CTDI is 35.07 mGy and DLP is 691.05 mGy-cm. Automated exposure control was utilized for the study. A dose lowering technique was utilized adhering to the principles of ALARA. COMPARISON: 12/14/22 FINDINGS: Brain: No hemorrhage. No apparent acute cortical infarct. No mass lesion or midline shift. Involutional changes. Ventricles: No hydrocephalus. Bones/joints: No acute fracture. Soft tissues: Unremarkable. Sinuses: No acute sinusitis. Polypoid mucosal thickening Mastoid air cells: No mastoid effusion. Orbits: Unremarkable as visualized. IMPRESSION: No acute intracranial process. Electronically signed by: Lexi Mart M.D. 02/24/23 23:41 PM
--- NOTE | 2023-02-25 00:11 | History & Physical Report ---
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 hx hepatocellular carcinoma status post IR embolization/portal vein thrombus as per records Pulmonary hypertension, some congestion noted on imaging DM2 insulin requiring, suboptimal control as of recent hemoglobin A1c of 7.8 last January 2023 chronic pancytopenia secondary to chronic liver disease prostate cancer status post radiation status post Eligard, left renal mass on outpatient imaging, patient follows with [facility] urologist Medical telemetry Facilitate lactulose and rifaximin Once awake, patient will need to be counseled regarding need to comply with above regimen to avoid hospitalization. GI consult re: hepatic encephalopathy continue diuretic regimen Basal bolus insulin, ISS BG goal 1 10-1 40, carb count coverage DVT prophylaxis. SCDs Re: Thrombocytopenia Full code Patient's requesting updates from providers. Ms. Lucy Hale, contact #[phone] Text document was generated using [employer] voice recognition software. It may contain grammatical or spelling errors. Kindly contact undersigned for clarification of any documentation item in question. History of Present Illness Chief Complaint: Altered mental status as per records Primary Care Provider: Francisco Cisse MD History obtained from patient and records. Unable to obtain history from patient's secondary to obtunded state. 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 Last confinement November 2022 secondary to multifactorial anemia. Patient underwent endoscopy. EGD showed grade 3 esophageal varices with subsequent banding. Bleeding GAVE lesions treated with APC. Colonoscopy showed rectal angiectasia's consistent with radiation proctopathy status post APC. Patient underwent outpatient IR guided TIPS revision at [facility] 4 days ago. Patient noted to have worsening confusion the last 2 days as per . Patient not compliant with lactulose due to diarrhea side effect as per . No complaints about abdominal pain as per . Belly distention actually better with water pills as per patient . No concerns about bleeding as per . Patient brought to the ER for evaluation. Lactulose enema ordered at the ER. 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 Allergies Allergy/AdvReac Type Severity Reaction Status Date / Time No Known Allergies Allergy Mild Verified 02/24/23 22:30 Home Medications Medication Instructions Recorded Confirmed Type citalopram 10 mg tablet (Celexa) 10 mg PO QAM 03/24/20 02/24/23 History allopurinol 100 mg tablet 100 mg PO BID 05/16/20 02/24/23 History rifaximin 550 mg tablet (Xifaxan) 550 mg PO BID 12/08/20 02/24/23 History finasteride 5 mg tablet 5 mg PO QAM 11/03/21 02/24/23 History lactulose 10 gram/15 mL oral 15 ml PO BID 03/13/22 02/24/23 History solution furosemide 20 mg tablet (Lasix) 40 mg PO QAM 11/02/22 02/24/23 History insulin glargine 100 unit/mL 14 unit subcut QDD 11/05/22 02/24/23 History subcutaneous solution (Lantus U-100 Insulin) pantoprazole 40 mg tablet,delayed 40 mg PO BID 90 days #180 tabs 11/08/22 02/24/23 Rx release multivitamin with iron 1 tab PO QAM 01/14/23 02/24/23 History acetaminophen 325 mg tablet 650 mg PO Q8H PRN Pain 02/24/23 02/24/23 History (Tylenol) mirtazapine 30 mg tablet 30 mg PO HS 02/24/23 02/24/23 History spironolactone 100 mg tablet 100 mg PO QAM 02/24/23 02/24/23 History triamcinolone acetonide 0.1 % 1 applic topical BID PRN PSORIATIC 02/24/23 02/24/23 History topical cream LESIONS WHEN NEEDED Past Med/Surg History Medical History Anemia of chronic disease 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 CKD (chronic kidney disease) stage 3, GFR 30-59 ml/min Esophageal varices GAVE (gastric antral vascular ectasia) GERD (gastroesophageal reflux disease) Gout NO ISSUES CURRENTLY History of panic attacks History of recent blood transfusion 11/05/22 Hyperosmolar hyperglycemic state (HHS) Hypertension Prostate cancer (11/10/20) Psoriasis Rectal bleeding hx of Shortness of breath T2DM (type 2 diabetes mellitus) Upper GI bleed hx of Surgical History History of abdominal paracentesis multiple--last 01/14/23 History of colonoscopy with polypectomy History of esophagogastroduodenoscopy (EGD) last 10/25 revealed grade 2 esophageal varices, grade 1 gastric varices STABLE History of prostate biopsy malignant History of tonsillectomy and adenoidectomy S/P TIPS (transjugular intrahepatic portosystemic shunt) Family History Father , "3/4 liver gone due to drinking" Colorectal cancer, Onset Age: 63 Mother Lung cancer Daughter Cancer cervical and thyroid cancers Ovarian cancer Other No family history of adverse response to anesthesia 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 Smoking Status: Unknown if ever smoked Second Hand Exposure: No; Hx Alcohol Use: No Hx Substance Use: No Preferred Language: Mauritian Communication Ability: Effective Visual Impairment: No Limitations Hearing Ability: Normal Child Support Officer Required: No Beliefs That Will Affect Care: None marital status: Current Living Situation: Alone Current Living Situation Comment: is currently at [facility] 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 How many Children do You have: 6 How many Children do You have Comment: one , eldest daughter in her sleep from seizure disorder Feels Safe at Home: Yes Childhood Exposure to Second-Hand Smoke: Yes Diet Comment: "I watch my sugar, average fasting is 140 mg/dl" caffeine: Yes (cola, sugar free, decaf) during the past year weight has: remained stable Dental Care, Regularly: No Physical Activity Frequency: Does not Exercise Seatbelt Use: always Sunscreen Use: Yes Assistive Devices: Glasses and Walker Review of Systems Review of Systems: Could not be reliably obtained secondary to obtunded state Physical Exam Physical Exam: GENERAL: Obtunded, no respiratory distress SKIN: Pallor, warm HEENT: Alopecia, pale palpebral conjunctivae, no ptosis, dry buccal mucosa NECK : Supple, no tenderness CHEST : Decreased breath sounds, no tenderness HEART : Bradycardic, no obvious murmurs ABDOMEN: Some distention, nontender EXTREMITIES : Minimal LE swelling, no LE tenderness, no other conspicuous deformities noted NEUROLOGIC : Obtunded, no facial asymmetry, gait and stance not assessed Results & Data Results & Data Vital Signs (Past 12 Hours) Vital Signs Temp Pulse Pulse Resp BP BP Pulse Ox 02/24/23 22:40 58 L 14 99 02/24/23 22:30 57 L 16 133/68 99 02/24/23 22:20 58 L 18 99 02/24/23 22:10 59 L 22 99 02/24/23 22:05 61 19 99 02/24/23 21:43 36.8 C 59 L 20 136/76 99 02/24/23 22:28 99 02/24/23 22:06 59 L O2 Del Method 02/24/23 22:40 02/24/23 22:30 02/24/23 22:20 02/24/23 22:10 02/24/23 22:05 02/24/23 21:43 Room Air 02/24/23 22:28 02/24/23 22:06 Laboratory Results Laboratory Results WBC 3.56 K/ul (4.8-10.8) L 02/24/23 22:06 RBC 3.03 M/uL (4.70-6.10) L 02/24/23 22:06 Hgb 9.4 g/dl (14.0-18.0) L 02/24/23 22:06 Hct 28.2 % (42.0-52.0) L 02/24/23 22:06 MCV 93.1 fL (80.0-100.0) 02/24/23 22:06 MCH 31.0 pg (25.0-34.0) 02/24/23 22:06 MCHC 33.3 g/dL (32.0-36.0) 02/24/23 22:06 RDW Std Deviation 68.9 fL (36.4-46.3) H 02/24/23 22:06 RDW Coeff of Violetta 20.2 % (11.5-14.5) H 02/24/23 22:06 Plt Count 86 K/uL (130-400) L 02/24/23 22:06 MPV 11.5 fL (9.4-12.4) 02/24/23 22:06 Immature Gran % (Auto) 0.0 % 02/24/23 22:06 Neut % (Auto) 63.2 % 02/24/23 22:06 Lymph % (Auto) 22.2 % 02/24/23 22:06 Gilliam % (Auto) 6.7 % 02/24/23 22:06 Eos % (Auto) 7.3 % 02/24/23 22:06 Baso % (Auto) 0.6 % 02/24/23 22:06 Neut # (Auto) 2.25 K/uL (1.40-6.50) 02/24/23 22:06 Lymph # (Auto) 0.79 K/uL (1.2-3.4) L 02/24/23 22:06 Gilliam # (Auto) 0.24 K/uL (0.11-0.59) 02/24/23 22:06 Eos # (Auto) 0.26 K/uL (0-0.50) 02/24/23 22:06 Baso # (Auto) 0.02 K/uL (0-0.2) 02/24/23 22:06 Immature Gran # (Auto) 0.00 K/uL (0.01-0.20) L 02/24/23 22:06 Tear Drop Cells 2+ 02/24/23 22:06 PT 12.0 Seconds (9.0-12.0) 02/24/23 22:06 INR 1.1 (0.9-1.1) 02/24/23 22:06 Sodium 142 mmol/L (136-145) 02/24/23 22:06 Potassium 4.3 mmol/L (3.5-5.1) 02/24/23 22:06 Chloride 114 mmol/L (98-107) H 02/24/23 22:06 Carbon Dioxide 21 mmol/L (21-32) 02/24/23 22:06 Anion Gap 7 (3-11) 02/24/23 22:06 BUN 31 mg/dl (6-23) H 02/24/23 22:06 Creatinine 1.38 mg/dl (0.6-1.4) 02/24/23 22:06 Est Cr Clr Drug Dosing 50.0 ml/min 02/24/23 22:06 Est GFR ( Amer) 58.8 ml/min 02/24/23 22:06 Est GFR (Non-Af Amer) 50.7 ml/min 02/24/23 22:06 BUN/Creatinine Ratio 22.5 (10-20) H 02/24/23 22:06 Glucose 153 mg/dl (70-99(Fasting)) H 02/24/23 22:06 Calcium 8.6 mg/dl (8.6-10.3) 02/24/23 22:06 Magnesium 1.8 mg/dl (1.7-2.4) 02/24/23 22:06 Total Bilirubin 2.4 mg/dl (0.2-1.0) H 02/24/23 22:06 AST 41 U/L (13-39) H 02/24/23 22:06 ALT 33 U/L (7-52) 02/24/23 22:06 Alkaline Phosphatase 185 U/L (34-104) H 02/24/23 22:06 Ammonia 252.0 umol/L (18-72) H 02/24/23 22:44 Troponin I High Sens 7.9 pg/ml (0-20) 02/24/23 22:06 Total Protein 7.0 gm/dl (6.0-8.3) 02/24/23 22:06 Albumin 3.1 gm/dl (3.4-5.0) L 02/24/23 22:06 Globulin 3.9 gm/dl (2.5-4.0) 02/24/23 22:06 Albumin/Globulin Ratio 0.8 (0.9-2) L 02/24/23 22:06 TSH 1.156 uIu/ml (0.300-4.500) 02/24/23 22:06 Urine Color Dark Yellow 02/24/23 22:20 Urine Appearance Clear (Clear) 02/24/23 22:20 Urine pH 7.0 (4.5-7.5) 02/24/23 22:20 Ur Specific Harmony 1.021 (1.000-1.030) 02/24/23 22:20 Urine Protein Negative (Negative) 03/26/23 22:20 Urine Glucose (UA) Negative (Negative) 02/24/23 22:20 Urine Ketones Negative (Negative) 02/24/23 22:20 Urine Blood 3+ (Negative) H 02/24/23 22:20 Urine Nitrite Negative (Negative) 02/24/23 22:20 Urine Bilirubin Negative (Negative) 02/24/23 22:20 Urine Urobilinogen Negative (Negative) 02/24/23 22:20 Ur Leukocyte Esterase Negative (Negative) 02/24/23 22:20 Urine WBC (Auto) 1-5 /hpf (0-5) 02/24/23 22:20 Urine RBC (Auto) >30 /hpf (0-4) H 02/24/23 22:20 U Hyaline Cast (Auto) 1-5 /lpf (0-5) 02/24/23 22:20 U Epithel Cells (Auto) >30 /lpf (0-5) H 02/24/23 22:20 Urine Bacteria (Auto) Negative (Negative) 02/24/23 22:20 Ur Renal Epithelial Cell Not Reportable 02/24/23 22:20 SARS-CoV-2, RNA, NAAT NEGATIVE (NEGATIVE) 02/24/23 22:[address] 02/24/23 22:40 Exam(s): CT HEAD Without Contrast EXAM: CT Head Without Intravenous Contrast CLINICAL HISTORY: Reason for exam: AMS. TECHNIQUE: Axial computed tomography images of the head/brain without intravenous contrast. CTDI is 35.07 mGy and DLP is 691.05 mGy-cm. Automated exposure control was utilized for the study. A dose lowering technique was utilized adhering to the principles of ALARA. COMPARISON: 12/14/22 FINDINGS: Brain: No hemorrhage. No apparent acute cortical infarct. No mass lesion or midline shift. Involutional changes. Ventricles: No hydrocephalus. Bones/joints: No acute fracture. Soft tissues: Unremarkable. Sinuses: No acute sinusitis. Polypoid mucosal thickening Mastoid air cells: No mastoid effusion. Orbits: Unremarkable as visualized. IMPRESSION: No acute intracranial process. Electronically signed by: Lexi Mart M.D. 02/24/23 23:41 PM Diagnostic Findings Chest x-ray as per my interpretation cardiomegaly, minimal congestion EKG as per my interpretation : Rate 60,NSR, LAD, LAFB, T wave abnormality septal leads
[2023-02-25] MEDS ORDERED: ACETAMINOPHEN 325 MG TAB PO PRN (00:15)
[2023-02-25] MEDS ORDERED: ALBUMIN 25% 12.5 GM/50 ML VIAL IV ONE (00:18)
[2023-02-25] MEDS: LACTULOSE 200GM/700ML WTR ENEMA PR STA ×2 (00:25→00:48)
--- NOTE | 2023-02-25 01:11 | Emergency Department Note ---
Impression & Plan AMS (altered mental status), Hyperammonemia ED Provider Note INFORMANT: EMS and patient's ED PROVIDER(S): Collin Xie MD CHIEF COMPLAINT: Altered mental status PLAN: Disposition: Admitted Condition: Guarded Outpatient prescription management: None Referral: None MEDICAL DECISION MAKING: Patient presented because of altered mental status. A work-up was initiated. Head CT was performed and was negative. Patient's ECG is normal. Blood work revealed pancytopenia which was stable. Chemistry panel was unremarkable. Patient's ammonia level was significantly elevated concerning for hyperammonemia. I suspect this is the cause. Patient is not reliable enough to take oral lactulose. A lactulose enema was ordered. Patient was gently hydrated. [facility] Case was discussed and diagnostics were reviewed. He evaluated patient in the ER and admitted him for further management. Discussed with project manager finance After review of the information above and other included data, I feel the pa artem requires admission. Triage Nursing notes reviewed and agree them. Vital Signs: reviewed and remarkable for no significant abnormalities Prior /Outside records reviewed: none Differential diagnosis: Hyperammonemia, infection, hypoglycemia, electrolyte abnormalities, overdose, toxicologic, cardiac sources, intracerebral event, neurologic, trauma, as well as other pathologies. Diagnostics, as interpreted by me: EC Lead ECG performed and revealed Normal sinus rhythm at 60, normal [place], QRS normal. Septal Q waves. No elevation or depression. No PACs or PVCs Cardiac Monitoring: Cardiac monitoring ordered by me: The patient was placed on continuous cardiac monitoring and observed. It revealed a normal sinus rhythm at 62 beats per minute without ectopy or evidence of dysrhythmia. Medical decision rules: none Imaging studies: Head CT: A noncontrast CT scan of the head was performed and was negative for tumor, fracture, intracranial hemorrhage, or other acute pathology. Chest x-ray. Findings: A chest x-ray was performed and revealed no pneumothorax, effusion, infiltrate, pulmonary edema, free air under the diaphragm, or wide mediastinum. Impression: No acute disease. Chest x-ray HPI: The patient is a 72 year old male who presents to the Emergency Room with altered mental status. This started tonight per the and is similar to prior episodes with high ammonia levels. EMS was summoned. Patient was brought to the ER. Patient arrives confused but does respond to voice and denies any pain. The patient has Been given no medication prehospital relieving factors. history is limited secondary to the patient's altered mental status. PAST MEDICAL HISTORY: See Below, liver cirrhosis secondary to [place] PAST SURGICAL HISTORY: See Below, SOCIAL HISTORY: See Below, HOME MEDICATIONS: See Below ALLERGIES: See Below VITALS: See Below PHYSICAL EXAMINATION: GENERAL: Awake, [id number], in no distress HENT: Normocephalic, atraumatic. Oropharynx unremarkable. EYES: Normal conjunctiva. Sclera non-icteric. NECK: Inspection normal. Non-tender. Supple. No nuchal rigidity. FROM. No masses. RESPIRATORY: Clear to auscultation. No wheezes. No rales. Normal respiratory effort. CARDIAC: Normal rate. Normal rhythm. No murmurs. No rubs. Extremities warm and well perfused. Pulses equal. No JVD. GI: Soft, non-distended. No tenderness to palpation. No rebound or guarding. No masses. RECTAL: Deferred. MUSCULOSKELETAL: Atraumatic. Chest examination reveals no tenderness. The back is symmetrical on inspection without obvious abnormality. There is no CVA tenderness to palpation. No joint edema. LOWER EXTREMITIES: Calves are equal size bilaterally and non-tender. No edema. No discoloration. NEURO: Altered sensorium. No focal sensory or motor deficits noted. Unable to follow detailed commands SKIN: No rash or jaundice noted. Past Med/Surg History Medical History Anemia of chronic disease Cardiac cirrhosis Cirrhosis 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 CKD (chronic kidney disease) stage 3, GFR 30-59 ml/min Esophageal varices GAVE (gastric antral vascular ectasia) GERD (gastroesophageal reflux disease) Gout NO ISSUES CURRENTLY History of panic attacks History of recent blood transfusion 11/05/22 Hyperosmolar hyperglycemic state (HHS) Hypertension Prostate cancer (11/10/20) Psoriasis Rectal bleeding hx of Shortness of breath T2DM (type 2 diabetes mellitus) Upper GI bleed hx of Surgical History History of abdominal paracentesis multiple--last 01/14/23 History of colonoscopy with polypectomy History of esophagogastroduodenoscopy (EGD) last 10/25 revealed grade 2 esophageal varices, grade 1 gastric varices STABLE History of prostate biopsy malignant History of tonsillectomy and adenoidectomy S/P TIPS (transjugular intrahepatic portosystemic shunt) Family History Father , "3/4 liver gone due to drinking" Colorectal cancer, Onset Age: 63 Mother Lung cancer Daughter Cancer cervical and thyroid cancers Ovarian cancer Other No family history of adverse response to anesthesia 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 Smoking Status: Unknown if ever smoked Second Hand Exposure: No; Hx Alcohol Use: No Hx Substance Use: No Preferred Language: Chinese Communication Ability: Effective Visual Impairment: No Limitations Hearing Ability: Normal Heating And Ventilating Tender Required: No Beliefs That Will Affect Care: None marital status: Current Living Situation: Alone Current Living Situation Comment: is currently at [employer] 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 How many Children do You have: 6 How many Children do You have Comment: one , eldest daughter in her sleep from seizure disorder Feels Safe at Home: Yes Childhood Exposure to Second-Hand Smoke: Yes Diet Comment: "I watch my sugar, average fasting is 140 mg/dl" caffeine: Yes (cola, sugar free, decaf) during the past year weight has: remained stable Dental Care, Regularly: No Physical Activity Frequency: Does not Exercise Seatbelt Use: always Sunscreen Use: Yes Assistive Devices: Glasses and Walker Allergies Allergies Allergy/AdvReac Type Severity Reaction Status Date / Time No Known Allergies Allergy Mild Verified 02/24/23 22:30 Home Meds Home Medications Medication Instructions Recorded Confirmed citalopram 10 mg tablet (Celexa) 10 mg PO QAM 03/24/20 02/24/23 allopurinol 100 mg tablet 100 mg PO BID 05/16/20 02/24/23 rifaximin 550 mg tablet (Xifaxan) 550 mg PO BID 12/08/20 02/24/23 finasteride 5 mg tablet 5 mg PO QAM 11/03/21 02/24/23 lactulose 10 gram/15 mL oral 15 ml PO BID 03/13/22 02/24/23 solution furosemide 20 mg tablet (Lasix) 40 mg PO QAM 11/02/22 02/24/23 insulin glargine 100 unit/mL 14 unit subcut QDD 11/05/22 02/24/23 subcutaneous solution (Lantus U-100 Insulin) multivitamin with iron 1 tab PO QAM 01/14/23 02/24/23 acetaminophen 325 mg tablet 650 mg PO Q8H PRN Pain 02/24/23 02/24/23 (Tylenol) mirtazapine 30 mg tablet 30 mg PO HS 02/24/23 02/24/23 spironolactone 100 mg tablet 100 mg PO QAM 02/24/23 02/24/23 triamcinolone acetonide 0.1 % 1 applic topical BID PRN PSORIATIC 02/24/23 02/24/23 topical cream LESIONS WHEN NEEDED Previous Rx's Medication Instructions Recorded pantoprazole 40 mg tablet,delayed 40 mg PO BID 90 days #180 tabs 11/08/22 release Results & Data (ED) Vital Signs Vital Signs - 24 hr 02/24/23 22:06 02/24/23 22:28 02/24/23 22:28 Temperature Temperature Source Pulse Rate 59 L Pulse Rate [Radial] Pulse Rate from SpO2 Sensor Pulse Rhythm [Radial] Pulse Strength [Radial] Respiratory Rate Respiratory Effort / Characteristics Respiratory Depth Respiratory Pattern Blood Pressure Blood Pressure [Right Arm] Blood Pressure Mean Blood Pressure Mean [Right Arm] Pulse Oximetry 99 Oxygen Delivery Method Sepsis Recent Fever Within 48 Hours No Sepsis New/Unexplained Change in Mental Status Yes Sepsis Action Taken by Nursing No Action Required 02/24/23 21:43 02/24/23 22:05 02/24/23 22:10 Temperature 36.8 C Temperature Source Rectal Pulse Rate 61 59 L Pulse Rate [Radial] 59 L Pulse Rate from SpO2 Sensor 56 L 59 L Pulse Rhythm [Radial] Regular Pulse Strength [Radial] Normal Respiratory Rate 20 19 22 Respiratory Effort / Characteristics Non-Labored Spontaneous Respiratory Depth Normal Respiratory Pattern Regular Blood Pressure Blood Pressure [Right Arm] 136/76 Blood Pressure Mean Blood Pressure Mean [Right Arm] 96 Pulse Oximetry 99 99 99 Oxygen Delivery Method Room Air Sepsis Recent Fever Within 48 Hours Sepsis New/Unexplained Change in Mental Status Sepsis Action Taken by Nursing 02/24/23 22:20 02/24/23 22:30 02/24/23 22:40 Temperature Temperature Source Pulse Rate 58 L 57 L 58 L Pulse Rate [Radial] Pulse Rate from SpO2 Sensor 58 L 57 L 59 L Pulse Rhythm [Radial] Pulse Strength [Radial] Respiratory Rate 18 16 14 Respiratory Effort / Characteristics Respiratory Depth Respiratory Pattern Blood Pressure 133/68 Blood Pressure [Right Arm] Blood Pressure Mean 89 Blood Pressure Mean [Right Arm] Pulse Oximetry 99 99 99 Oxygen Delivery Method Sepsis Recent Fever Within 48 Hours Sepsis New/Unexplained Change in Mental Status Sepsis Action Taken by Nursing Laboratory Data 02/24/23 22:06 02/24/23 22:06 Lab Results 02/24/23 02/24/23 02/24/23 Range/Units 22:06 22:06 22:06 WBC 3.56 L (4.8-10.8) K/ul RBC 3.03 L (4.70-6.10) M/uL Hgb 9.4 L (14.0-18.0) g/dl Hct 28.2 L (42.0-52.0) % MCV 93.1 (80.0-100.0) fL MCH 31.0 (25.0-34.0) pg MCHC 33.3 (32.0-36.0) g/dL RDW Std Deviation 68.9 H (36.4-46.3) fL RDW Coeff of [place] 20.2 H (11.5-14.5) % Plt Count 86 L (130-400) K/uL MPV 11.5 (9.4-12.4) fL Immature Gran % (Auto) 0.0 % Neut % (Auto) 63.2 % Lymph % (Auto) 22.2 % [place] % (Auto) 6.7 % Eos % (Auto) 7.3 % Baso % (Auto) 0.6 % Neut # (Auto) 2.25 (1.40-6.50) K/uL Lymph # (Auto) 0.79 L (1.2-3.4) K/uL [place] # (Auto) 0.24 (0.11-0.59) K/uL Eos # (Auto) 0.26 (0-0.50) K/uL Baso # (Auto) 0.02 (0-0.2) K/uL Immature Gran # (Auto) 0.00 L (0.01-0.20) K/uL Tear Drop Cells 2+ PT (9.0-12.0) Seconds INR (0.9-1.1) Sodium 142 (136-145) mmol/L Potassium 4.3 (3.5-5.1) mmol/L Chloride 114 H (98-107) mmol/L Carbon Dioxide 21 (21-32) mmol/L Anion Gap 7 (3-11) BUN 31 H (6-23) mg/dl Creatinine 1.38 (0.6-1.4) mg/dl Est Cr Clr Drug Dosing 50.0 ml/min Est GFR ( Amer) 58.8 ml/min Est GFR (Non-Af Amer) 50.7 ml/min BUN/Creatinine Ratio 22.5 H (10-20) Glucose 153 H (70-99(Fasting)) mg/dl Calcium 8.6 (8.6-10.3) mg/dl Magnesium 1.8 (1.7-2.4) mg/dl Total Bilirubin 2.4 H (0.2-1.0) mg/dl AST 41 H (13-39) U/L ALT 33 (7-52) U/L Alkaline Phosphatase 185 H (34-104) U/L Ammonia (18-72) umol/L Troponin I High Sens 7.9 (0-20) pg/ml Total Protein 7.0 (6.0-8.3) gm/dl Albumin 3.1 L (3.4-5.0) gm/dl Globulin 3.9 (2.5-4.0) gm/dl Albumin/Globulin Ratio 0.8 L (0.9-2) TSH 1.156 (0.300-4.500) uIu/ml Urine Color Urine Appearance (Clear) Urine pH (4.5-7.5) Ur Specific [place] (1.000-1.030) Urine Protein (Negative) Urine Glucose (UA) (Negative) Urine Ketones (Negative) Urine Blood (Negative) Urine Nitrite (Negative) Urine Bilirubin (Negative) Urine Urobilinogen (Negative) Ur Leukocyte Esterase (Negative) Urine WBC (Auto) (0-5) /hpf Urine RBC (Auto) (0-4) /hpf U Hyaline Cast (Auto) (0-5) /lpf U Epithel Cells (Auto) (0-5) /lpf Urine Bacteria (Auto) (Negative) Ur Renal Epithelial Cell SARS-CoV-2, RNA, NAAT (NEGATIVE) 02/24/23 02/24/23 02/24/23 Range/Units 22:06 22:20 22:28 WBC (4.8-10.8) K/ul RBC (4.70-6.10) M/uL Hgb (14.0-18.0) g/dl Hct (42.0-52.0) % MCV (80.0-100.0) fL MCH (25.0-34.0) pg MCHC (32.0-36.0) g/dL RDW Std Deviation (36.4-46.3) fL RDW Coeff of [place] (11.5-14.5) % Plt Count (130-400) K/uL MPV (9.4-12.4) fL Immature Gran % (Auto) % Neut % (Auto) % Lymph % (Auto) % [place] % (Auto) % Eos % (Auto) % Baso % (Auto) % Neut # (Auto) (1.40-6.50) K/uL Lymph # (Auto) (1.2-3.4) K/uL [place] # (Auto) (0.11-0.59) K/uL Eos # (Auto) (0-0.50) K/uL Baso # (Auto) (0-0.2) K/uL Immature Gran # (Auto) (0.01-0.20) K/uL Tear Drop Cells PT 12.0 (9.0-12.0) Seconds INR 1.1 (0.9-1.1) Sodium (136-145) mmol/L Potassium (3.5-5.1) mmol/L Chloride (98-107) mmol/L Carbon Dioxide (21-32) mmol/L Anion Gap (3-11) BUN (6-23) mg/dl Creatinine (0.6-1.4) mg/dl Est Cr Clr Drug Dosing ml/min Est GFR ( Amer) ml/min Est GFR (Non-Af Amer) ml/min BUN/Creatinine Ratio (10-20) Glucose (70-99(Fasting)) mg/dl Calcium (8.6-10.3) mg/dl Magnesium (1.7-2.4) mg/dl Total Bilirubin (0.2-1.0) mg/dl AST (13-39) U/L ALT (7-52) U/L Alkaline Phosphatase (34-104) U/L Ammonia (18-72) umol/L Troponin I High Sens (0-20) pg/ml Total Protein (6.0-8.3) gm/dl Albumin (3.4-5.0) gm/dl Globulin (2.5-4.0) gm/dl Albumin/Globulin Ratio (0.9-2) TSH (0.300-4.500) uIu/ml Urine Color Dark Yellow Urine Appearance Clear (Clear) Urine pH 7.0 (4.5-7.5) Ur Specific [place] 1.021 (1.000-1.030) Urine Protein Negative (Negative) Urine Glucose (UA) Negative (Negative) Urine Ketones Negative (Negative) Urine Blood 3+ H (Negative) Urine Nitrite Negative (Negative) Urine Bilirubin Negative (Negative) Urine Urobilinogen Negative (Negative) Ur Leukocyte Esterase Negative (Negative) Urine WBC (Auto) 1-5 (0-5) /hpf Urine RBC (Auto) >30 H (0-4) /hpf U Hyaline Cast (Auto) 1-5 (0-5) /lpf U Epithel Cells (Auto) >30 H (0-5) /lpf Urine Bacteria (Auto) Negative (Negative) Ur Renal Epithelial Cell Not Reportable SARS-CoV-2, RNA, NAAT NEGATIVE (NEGATIVE) 02/24/23 Range/Units 22:44 WBC (4.8-10.8) K/ul RBC (4.70-6.10) M/uL Hgb (14.0-18.0) g/dl Hct (42.0-52.0) % MCV (80.0-100.0) fL MCH (25.0-34.0) pg MCHC (32.0-36.0) g/dL RDW Std Deviation (36.4-46.3) fL RDW Coeff of [place] (11.5-14.5) % Plt Count (130-400) K/uL MPV (9.4-12.4) fL Immature Gran % (Auto) % Neut % (Auto) % Lymph % (Auto) % [place] % (Auto) % Eos % (Auto) % Baso % (Auto) % Neut # (Auto) (1.40-6.50) K/uL Lymph # (Auto) (1.2-3.4) K/uL [place] # (Auto) (0.11-0.59) K/uL Eos # (Auto) (0-0.50) K/uL Baso # (Auto) (0-0.2) K/uL Immature Gran # (Auto) (0.01-0.20) K/uL Tear Drop Cells PT (9.0-12.0) Seconds INR (0.9-1.1) Sodium (136-145) mmol/L Potassium (3.5-5.1) mmol/L Chloride (98-107) mmol/L Carbon Dioxide (21-32) mmol/L Anion Gap (3-11) BUN (6-23) mg/dl Creatinine (0.6-1.4) mg/dl Est Cr Clr Drug Dosing ml/min Est GFR ( Amer) ml/min Est GFR (Non-Af Amer) ml/min BUN/Creatinine Ratio (10-20) Glucose (70-99(Fasting)) mg/dl Calcium (8.6-10.3) mg/dl Magnesium (1.7-2.4) mg/dl Total Bilirubin (0.2-1.0) mg/dl AST (13-39) U/L ALT (7-52) U/L Alkaline Phosphatase (34-104) U/L Ammonia 252.0 H (18-72) umol/L Troponin I High Sens (0-20) pg/ml Total Protein (6.0-8.3) gm/dl Albumin (3.4-5.0) gm/dl Globulin (2.5-4.0) gm/dl Albumin/Globulin Ratio (0.9-2) TSH (0.300-4.500) uIu/ml Urine Color Urine Appearance (Clear) Urine pH (4.5-7.5) Ur Specific [place] (1.000-1.030) Urine Protein (Negative) Urine Glucose (UA) (Negative) Urine Ketones (Negative) Urine Blood (Negative) Urine Nitrite (Negative) Urine Bilirubin (Negative) Urine Urobilinogen (Negative) Ur Leukocyte Esterase (Negative) Urine WBC (Auto) (0-5) /hpf Urine RBC (Auto) (0-4) /hpf U Hyaline Cast (Auto) (0-5) /lpf U Epithel Cells (Auto) (0-5) /lpf Urine Bacteria (Auto) (Negative) Ur Renal Epithelial Cell SARS-CoV-2, RNA, NAAT (NEGATIVE) Administered Medications Discontinued Medications Sodium Chloride (Nss 1000ml) 1,000 mls @ 125 mls/hr IV .Q8H JODI Stop: 02/25/23 06:29 Last Admin: 02/24/23 23:29 Dose: 125 mls/hr Documented By: MARGI Lactulose (Lactulose 200gm/700ml Wtr Enema) 200 gm IL NOW STA Stop: 02/24/23 23:29 Last Admin: 02/25/23 00:48 Dose: 200 gm Documented By: Admin: 02/25/23 00:25 Dose: 200 gm Documented By: MARGI Imaging Data Radiologist's Impression: Head CT 02/24/23 22:40 Exam(s): CT HEAD Without Contrast EXAM: CT Head Without Intravenous Contrast CLINICAL HISTORY: Reason for exam: AMS. TECHNIQUE: Axial computed tomography images of the head/brain without intravenous contrast. CTDI is 35.07 mGy and DLP is 691.05 mGy-cm. Automated exposure control was utilized for the study. A dose lowering technique was utilized adhering to the principles of ALARA. COMPARISON: 12/14/22 FINDINGS: Brain: No hemorrhage. No apparent acute cortical infarct. No mass lesion or midline shift. Involutional changes. Ventricles: No hydrocephalus. Bones/joints: No acute fracture. Soft tissues: Unremarkable. Sinuses: No acute sinusitis. Polypoid mucosal thickening Mastoid air cells: No mastoid effusion. Orbits: Unremarkable as visualized. IMPRESSION: No acute intracranial process. Electronically signed by: Lexi Mart M.D. 02/24/23 23:41 PM Discharge Plan Visit Data Chief Complaint: Altered Mental Status Stated Complaint: Lethargic ED Provider: Collin Xie Discharge Problem: AMS (altered mental status), Hyperammonemia Forms Stand Alone Forms: My [facility] Prescriptions Prescriptions: No Action citalopram [Celexa] 10 mg tablet 10 mg PO QAM lactulose 10 gram/15 mL solution 15 ml PO BID allopurinol 100 mg Tablet 100 mg PO BID Rx Instructions: PER [facility]--STILL TAKING, PER PT MED LIST--PRESCRIPTION 09/21/22 AND CAN NO LONGER BE REFILLED. LAST FILLED PER EXT MED HX--04/09/2022 FOR 90 DAYS/180 TABS. Xifaxan 550 mg tablet 550 mg PO BID Patient Comments: Part of the "[place]" regimen to remove impurities furosemide [Lasix] 20 mg Tablet 40 mg PO QAM spironolactone 100 mg tablet 100 mg PO QAM triamcinolone acetonide 0.1 % cream 1 applic TOPICAL BID PRN (Reason: PSORIATIC LESIONS WHEN NEEDED) mirtazapine 30 mg tablet 30 mg PO HS acetaminophen [Tylenol] 325 mg Tablet 650 mg PO Q8H PRN (Reason: Pain) finasteride 5 mg Tablet 5 mg PO QAM insulin glargine [Lantus U-100 Insulin] 100 unit/mL solution 14 unit subcut QDD pantoprazole 40 mg tablet,delayed release (DR/EC) 40 mg PO BID 90 Days Qty: 180 0RF multivitamin with iron Tablet 1 tab PO QAM Referrals Referrals: Francisco Cisse MD [Primary Care Provider] -
[2023-02-25] MEDS ORDERED: GLUCOSE 10 TAB/TUBE PO PRN (01:21)
[2023-02-25] MEDS ORDERED: GLUCOSE 40% GEL 15 GM TUBE PO PRN (01:21)
[2023-02-25] MEDS ORDERED: CARBOHYDRATES FOR HYPOGLYCEMIA PO PRN (01:21)
[2023-02-25] MEDS ORDERED: GLUCAGON FOR INJ 1 MG VIAL SQ PRN (01:21)
[2023-02-25] MEDS ORDERED: PROMETHAZINE HCL 6.25 MG in SODIUM CHLORIDE 0.9% 50 ML IV PRN (01:21)
[2023-02-25] MEDS ORDERED: DEXTROSE 50% 50 ML SYRINGE IV PRN (01:21)
[2023-02-25] MEDS: rifAXIMin 550 MG TABLET PO SCH ×3 (02:08→21:55)
[2023-02-25] MEDS ORDERED: ACETAMINOPHEN 1,000 MG/100 ML VIAL IV PRN (02:14)
--- NOTE | 2023-02-25 02:18 | Communication Note ---
Date of Service: February 25, 2023 2:10 AM Notified by ED RN of bright red blood per rectum noted after lactulose enema administration through rectal tube. Rectal tube extruded. Patient screaming at the ER as per RN. CT abdomen pelvis: . No definite gastrointestinal bleed however, evaluation is limited due to lack of contrast. Consider follow-up multiphase CTA bleeding study if clinically indicated. 2. Severe diverticulosis burden of the sigmoid colon. Mild fat stranding/fluid in the pelvis. Mild acute diverticulitis cannot be excluded. No fluid collection or abscess. No free intraperitoneal air. AP LGIB, possible diverticulitis IV Zosyn DC lactulose enema Facilitate oral lactulose once patient more awake.
[2023-02-25] MEDS: INSULIN ASPART PER UNIT CHARGE SC SCH ×5 (03:00→21:56)
[2023-02-25 03:37] LABS: Albumin Globulin Ratio 0.9 (0.9-2); Albumin Level 2.9 gm/dl (3.4-5.0); BUN Creatinine Ratio 22.2 (10-20); Bilirubin,Total 2.9 mg/dl (0.2-1.0); Calcium 8.5 mg/dl (8.6-10.3); Creatinine Clr Calc Pharmacy 51.1 ml/min; Est GFR (African American) 60.4 ml/min; Est GFR (Non-African American) 52.1 ml/min; Globulin 3.4 gm/dl (2.5-4.0); Potassium 4.2 mmol/L (3.5-5.1); Total Protein 6.3 gm/dl (6.0-8.3)
[2023-02-25 03:39] LABS: Hematocrit (blood only) 26.8 % (42.0-52.0); Hemoglobin 8.7 g/dl (14.0-18.0); Mean Corpuscular Hemoglobin 30.5 pg (25.0-34.0); Mean Corpuscular Hgb Conc 32.5 g/dL (32.0-36.0); Mean Platelet Volume 11.2 fL (9.4-12.4); Platelet Count 72 K/uL (130-400); RDW Coefficient of Variation 20.1 % (11.5-14.5); RDW Standard Deviation 68.6 fL (36.4-46.3); Red Blood Count 2.85 M/uL (4.70-6.10); White Blood Count 3.26 K/ul (4.8-10.8)
[2023-02-25 03:40] LABS: Basophils # (auto) 0.01 K/uL (0-0.2); Basophils % (auto) 0.3 %; Eosinophils # (auto) 0.27 K/uL (0-0.50); Eosinophils % (auto) 8.3 %; Immature Granulocytes # (auto) 0.01 K/uL (0.01-0.20); Immature Granulocytes % (auto) 0.3 %; Lymphocytes # (auto) 0.59 K/uL (1.2-3.4); Lymphocytes % (auto) 18.1 %; Monocytes # (auto) 0.25 K/uL (0.11-0.59); Monocytes % (auto) 7.7 %; Neutrophils # (auto) 2.13 K/uL (1.40-6.50); Neutrophils % (auto) 65.3 %; Ovalocytes 1+; Platelet Estimate Decreased (Normal); Polychromasia 1+; Tear Drop Cells 2+
[2023-02-25] MEDS ORDERED: ALBUMIN 25% 100 mL 25 GM/100 ML VIAL IV ONE (03:42)
--- NOTE | 2023-02-25 03:44 | CT Scan Report ---
Exam(s): CT ABDOMEN + PELVIS Without Contrast EXAM: CT Abdomen and Pelvis Without Intravenous Contrast CLINICAL HISTORY: Reason for exam: lgib. TECHNIQUE: Axial computed tomography images of the abdomen and pelvis without intravenous contrast. CTDI is 16.28 mGy and DLP is 921.67 mGy-cm. Automated exposure control was utilized for the study. A dose lowering technique was utilized adhering to the principles of ALARA. COMPARISON: No relevant prior studies available. FINDINGS: Lung bases: Unremarkable. No mass. No consolidation. ABDOMEN: Liver: Unremarkable. Gallbladder and bile ducts: Unremarkable. No calcified stones. No ductal dilation. Pancreas: Unremarkable. No ductal dilation. Spleen: Unremarkable. No splenomegaly. Adrenals: Unremarkable. No mass. Kidneys and ureters: Unremarkable. No obstructing stones. No hydronephrosis. Stomach and bowel: No definite gastrointestinal bleed however, evaluation is limited due to lack of contrast. Consider follow-up multiphase CTA bleeding study if clinically indicated. Severe diverticulosis burden of the sigmoid colon. Mild fat stranding/fluid in the pelvis. Mild acute diverticulitis cannot be excluded. No fluid collection or abscess. No free intraperitoneal air. No obstruction. PELVIS: Appendix: No findings to suggest acute appendicitis. Bladder: Unremarkable. No stones. Reproductive: Unremarkable as visualized. ABDOMEN and PELVIS: Intraperitoneal space: Unremarkable. No free air. No significant fluid collection. Bones/joints: Degenerative changes of the spine. No acute fracture. No dislocation. Soft tissues: Unremarkable. Vasculature: Atherosclerotic changes of the aorta. No abdominal aortic aneurysm. Lymph nodes: Unremarkable. No enlarged lymph nodes. IMPRESSION: 1. No definite gastrointestinal bleed however, evaluation is limited due to lack of contrast. Consider follow-up multiphase CTA bleeding study if clinically indicated. 2. Severe diverticulosis burden of the sigmoid colon. Mild fat stranding/fluid in the pelvis. Mild acute diverticulitis cannot be excluded. No fluid collection or abscess. No free intraperitoneal air. Electronically signed by: Prabhakar Medel MD 02/25/23 03:43 AM
[2023-02-25] MEDS ORDERED: PIPERACILLIN/TAZOBACTAM 4.5 GM/120 ML BAG IV ONE (04:05)
[2023-02-25] MEDS ORDERED: LACTULOSE 200GM/700ML WTR ENEMA PR SCH (05:00)
[2023-02-25 06:25] LABS: Hematocrit (blood only) 26.3 % (42.0-52.0); Hemoglobin 8.6 g/dl (14.0-18.0)
[2023-02-25] MEDS: LACTULOSE SYRUP 30 GM/45 ML UDP PO SCH ×4 (06:46→21:56)
--- NOTE | 2023-02-25 07:37 | XRay Report ---
SINGLE VIEW CHEST CLINICAL HISTORY: Generalized weakness. FINDINGS: 2 AP, portable, upright chest radiographs are compared to study dated 12/14/2022. The examin ation is degraded by portable technique and patient rotation. The the heart is enlarged noting ather osclerotic calcification of the thoracic aorta. The pulmonary vasculature is noncongested. Scarring/a telectasis is noted at both lung bases. The lungs and pleural spaces are otherwise clear. No pneumoth orax is seen. The skeletal structures are osteopenic. The bony thorax is grossly intact. IMPRESSION: Cardiomegaly with no acute cardiopulmonary abnormality. ACT 112: Negative or not required by law. Electronically signed by: Scott Yepez M.D. 02/25/2023 7:35 AM
[2023-02-25] MEDS ORDERED: SPIRONOLACTONE 100 MG TAB PO SCH (09:00)
[2023-02-25] MEDS ORDERED: LACTULOSE SYRUP 30 GM/45 ML UDP PO SCH (09:00)
[2023-02-25] MEDS ORDERED: LANTUS PER UNIT CHARGE SQ SCH (09:00)
[2023-02-25] MEDS ORDERED: FUROSEMIDE 40 MG TAB PO SCH (09:00)
[2023-02-25] MEDS: MULTIVITAMIN TAB PO SCH (09:54)
[2023-02-25] MEDS: CITALOPRAM 20 MG TAB PO SCH (09:54)
[2023-02-25] MEDS: FINASTERIDE 5 MG TAB PO SCH (09:54)
[2023-02-25] MEDS: PANTOprazole 40 MG TAB PO SCH (09:54)
[2023-02-25] MEDS: allopurinoL 100 MG TAB PO SCH ×2 (09:54→21:55)
[2023-02-25] MEDS: PIPERACILLIN/TAZOBACTAM 3.375 GM in DEXTROSE 5% 100 ML IV SCH ×2 (10:28→18:00)
--- NOTE | 2023-02-25 12:40 | Gastrointestinal Consultation ---
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 Clear liquids po. Rectal bleeding likely from hemorrhoids or radiation proctitis, as no significant drop in Hb, and underwent colonoscopy 3 months ago, EGD last week, would defer endoscopy. Continue BID IV PPI. Hold diuretics (maintained on spironolactone 100mg daily). Gentle IV hydration. . Supervising Physician Co-Signing Physician Notes Attg add: I interviewed and examined pt, reveiwed chart and labs. Pt with HE, TIPS. Lactulose, xifaxan; ensure that pt is euvolemic; rule out infection with ua, blood cultures, CXR. w/u rectal bleeding as above. DC diuretics. History of Present Illness Reason for Consultation: Hepatic encephalopathy Requesting Physician: Dr. Andersen Attending Physician: Tavo Paul MD History of Present Illness Mr. Luis Hale is a 72 yr old male pt of Dr. Cisse w a hx of psoriasis, prostate CA S/P radiation, HCC post IR iradication, prior HE, chronic transfusion requiring anemia managed by the hem/onc OP anemia clinic. He underwent TIPs revision last week (hx of refractory ascites). He was brought to the ED by EMS late last night for confusion which his stated had started yesterday. Ammonia was significantly elevated. Bili normal. CXR and CT head clear. He is chronically pancytopenic. Of note, a recent OP US showed RBCs and proteinuria but no evidence of white cells or nitrate. This morning, he remains encephalopathic but was able to tell me his name, date. He is not oriented to time/place and unable to tell me the detail of his symptoms or why he is here. On exam, he does not seem tender. He is mildly hypotensive, otherwise hemodynamically stable. ED nurse reports that there was an episode of bright red bleeding earlier this morning. Most recent EGD earlier this month: EV banded, gastric varix banded. Most recent colonoscopy was November 2022: diverticulosis, multiple colonic angiectasias consistent w radiation proctitis - APC'ed. Allergies Allergy/AdvReac Type Severity Reaction Status Date / Time No Known Allergies Allergy Mild Verified 02/24/23 22:30 Home Medications Medication Instructions Recorded Confirmed Type citalopram 10 mg tablet (Celexa) 10 mg PO QAM 03/24/20 02/24/23 History allopurinol 100 mg tablet 100 mg PO BID 05/16/20 02/24/23 History rifaximin 550 mg tablet (Xifaxan) 550 mg PO BID 12/08/20 02/24/23 History finasteride 5 mg tablet 5 mg PO QAM 11/03/21 02/24/23 History lactulose 10 gram/15 mL oral 15 ml PO BID 03/13/22 02/24/23 History solution furosemide 20 mg tablet (Lasix) 40 mg PO QAM 11/02/22 02/24/23 History insulin glargine 100 unit/mL 14 unit subcut QDD 11/05/22 02/24/23 History subcutaneous solution (Lantus U-100 Insulin) pantoprazole 40 mg tablet,delayed 40 mg PO BID 90 days #180 tabs 11/08/22 02/24/23 Rx release multivitamin with iron 1 tab PO QAM 01/14/23 02/24/23 History acetaminophen 325 mg tablet 650 mg PO Q8H PRN Pain 02/24/23 02/24/23 History (Tylenol) mirtazapine 30 mg tablet 30 mg PO HS 02/24/23 02/24/23 History spironolactone 100 mg tablet 100 mg PO QAM 02/24/23 02/24/23 History triamcinolone acetonide 0.1 % 1 applic topical BID PRN PSORIATIC 02/24/23 02/24/23 History topical cream LESIONS WHEN NEEDED Patient History Medical History Anemia of chronic disease 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 CKD (chronic kidney disease) stage 3, GFR 30-59 ml/min Esophageal varices GAVE (gastric antral vascular ectasia) GERD (gastroesophageal reflux disease) Gout NO ISSUES CURRENTLY History of panic attacks History of recent blood transfusion 11/05/22 Hyperosmolar hyperglycemic state (HHS) Hypertension Prostate cancer (11/10/20) Psoriasis Rectal bleeding hx of Shortness of breath T2DM (type 2 diabetes mellitus) Upper GI bleed hx of Surgical History History of abdominal paracentesis multiple--last 01/14/23 History of colonoscopy with polypectomy History of esophagogastroduodenoscopy (EGD) last 10/25 revealed grade 2 esophageal varices, grade 1 gastric varices STABLE History of prostate biopsy malignant History of tonsillectomy and adenoidectomy S/P TIPS (transjugular intrahepatic portosystemic shunt) Family History Father , "3/4 liver gone due to drinking" Colorectal cancer, Onset Age: 63 Mother Lung cancer Daughter Cancer cervical and thyroid cancers Ovarian cancer Other No family history of adverse response to anesthesia 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 Smoking Status: Unknown if ever smoked Second Hand Exposure: No; Hx Alcohol Use: No Hx Substance Use: No Preferred Language: Syriac Communication Ability: Effective Visual Impairment: No Limitations Hearing Ability: Normal Supplier Quality Engineer Required: No Beliefs That Will Affect Care: None marital status: Current Living Situation: Spouse Current Living Situation Comment: is currently at [facility] 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 A review of recent OP records, his ED record and H&P does not mention any S/S of infection. Physical Exam Constitutional: well developed, well nourished, + ill appearing (chronically), average body habitus, + altered mental status and comfortable; no acute distress Eyes: PERRL, conjunctivae normal, anicteric sclerae ENMT: external ear and nose normal, oropharynx normal Neck: trachea midline, no thyromegaly Respiratory: normal respiratory effort, lungs clear to auscultation Cardiovascular: RRR, no murmur, no edema Gastrointestinal (Abdomen): mild distention, no significant ascites, normal BMs, non tender Musculoskeletal: no cyanosis or clubbing, extremities motor strength 5/5 Skin: no rashes, warm and dry Neurologic: moves all extremities, awake and + confused (non sensible answers to most questions. ); not obtunded Speech / Cognition: + abnormal cognition ++asterix Psychiatric: Orientation: oriented to person and cooperative Apperance: appropriately dressed and appropriately groomed slightly mumbled speach, Lymphatic: no cervical or axillary lymphadenopathy Results & Data Vital Signs (Past 12 Hours) Vital Signs Pulse Pulse Resp BP BP Pulse Ox O2 Del Method 02/25/23 11:18 58 L 18 97 Room Air 02/25/23 10:01 58 L 18 108/43 L 96 Room Air 02/25/23 07:07 55 L 02/25/23 03:07 57 L 25 H 98 02/25/23 02:30 55 L 13 98 02/25/23 02:30 118/50 L 02/25/23 02:13 54 L 18 96 02/25/23 02:13 110/48 L 02/25/23 02:01 60 18 99 02/25/23 02:00 60 12 98 02/25/23 01:30 56 L 23 98 02/25/23 01:30 109/42 L 02/25/23 01:21 Room Air 02/25/23 01:00 58 L 15 103/46 L 98 Laboratory Results T Bili 2.7, AST 38, ALT 30, Alk Phos 156,ammonia 252->149. WBC 3.2, Hb 8.7, Hct 26.8, Plts 72, Na 143, K 4.2, Cl 112, CO2 22, BUN 30, Cr 1.35, plts [address] head: no acute findings. CXR: non contrast CTAP today: 1 No definite gastrointestinal bleed however, evaluation is limited due to lack of contrast. Consider follow-up multiphase CTA bleeding study if clinically indicated. 2. Severe diverticulosis burden of the sigmoid colon. Mild fat stranding/fluid in the pelvis.Mild acute diverticulitis cannot be excluded. No fluid collection or abscess. No free intraperitoneal air.
--- NOTE | 2023-02-25 15:03 | Electrocardiogram Report ---
Test Reason : Blood Pressure : / mmHG Vent. Rate : 060 BPM Atrial Rate : 060 BPM P-R Int : 178 ms QRS Dur : 088 ms QT Int : 494 ms P-R-T Axes : 101 -11 102 degrees QTc Int : 494 ms Normal sinus rhythm Septal infarct , age undetermined Abnormal ECG When compared with ECG of 14-DEC-2022 18:26, No significant change was found Confirmed by Salvador Scanlon ([id number]) on 02/25/2023 3:02:59 PM Referred By: REFERRED SELF Confirmed By:Salvador Scanlon
--- NOTE | 2023-02-25 16:35 | Hospitalist Progress Note ---
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 Consider follow-up multiphase CTA bleeding study if clinically indicated. Severe diverticulosis burden of the sigmoid colon. Mild fat stranding/fluid in the pelvis.Mild acute diverticulitis cannot be excluded. No fluid collection or abscess. No free intraperitoneal air. --CT Head:No acute intracranial process. --Ammonia 252 on presentation Avoid hepatotoxic agents as able Continue lactulose Appreciate GI input Reorient frequently Clear liquid diet for now Continue rifaximin Acute lower GI bleed Likely secondary to hemorrhoids, radiation proctitis, severe sigmoid diverticulosis --CT abd as above No plan for repeat endoscopy per GI Appreciate GI input Continue IV Protonix Hold diuretics for now Monitor H&H and transfuse as needed Suspected acute diverticulitis CT as above Empirically on Zosyn Pancytopenia Secondary to liver disease INR within normal limits Monitor platelets Pulmonary hypertension CXR:Cardiomegaly with no acute cardiopulmonary abnormality. Monitor volume status DM II HbA1C 7.8 Continue Insulin per protocol Monitor BGs Prostate cancer S/P radiation, Eligard Left renal mass on outpatient imaging Follows with G urologist DVT Px: SCDs Re: Thrombocytopenia Code Status Full code Disposition PT/OT prior to discharge Admission and Anticipated Discharge Date Admission Date: February 25, 2023 Subjective Patient is seen and examined at bedside Pleasantly confused Follows simple commands Denies any chest pain, shortness of breath, dizziness, nausea, abdominal pain Discussed with GI today No other complaints Review of Systems Review of Systems: All systems reviewed & are unremarkable except as noted in Subjective Physical Exam Physical Exam: Physical Exam: Vitals signs as noted above General Appearance:Moderately built and nourished, Chronic ill appearing, no apparent distress Head: normocephalic, Atraumatic Eyes: normal inspection, EOMI Neck: supple, Trachea midline Respiratory/Chest: Normal breath sounds, CTA, No accessory muscle use Cardiovascular: S1, S2, + murmur Abdomen/GI:Soft, Non tender, Bowel sounds present Extremities/Musculoskeletal:normal inspection, 1+ edema Neurologic/Psych:AAOX1, grossly no focal neurological deficits, +Confused Skin: normal color, warm,+ psoriasis Results & Data Results & Data Vital Signs (Past 12 Hours) Vital Signs Temp Pulse Pulse Resp BP Pulse Ox O2 Del Method 02/25/23 15:38 36.5 C 54 L 16 117/52 L 98 Room Air 02/25/23 15:23 58 L 18 100/58 L 96 Room Air 02/25/23 11:18 58 L 18 97 Room Air 02/25/23 10:01 58 L 18 108/43 L 96 Room Air 02/25/23 07:07 55 L Laboratory Results Short CBC 02/24/23 02/25/23 02/25/23 Range/Units 22:06 02:37 05:35 WBC 3.56 L 3.26 L (4.8-10.8) K/ul Hgb 9.4 L 8.7 L 8.6 L (14.0-18.0) g/dl Hct 28.2 L 26.8 L 26.3 L (42.0-52.0) % Plt Count 86 L 72 L (130-400) K/uL BMP 02/24/23 02/25/23 22:06 02:37 Sodium 142 143 Potassium 4.3 4.2 Chloride 114 H 116 H Carbon Dioxide 21 22 BUN 31 H 30 H Creatinine 1.38 1.35 Glucose 153 H 153 H Calcium 8.6 8.5 L Liver Function 02/24/23 02/25/23 Range/Units 22:06 02:37 Total Bilirubin 2.4 H 2.9 H (0.2-1.0) mg/dl AST 41 H 38 (13-39) U/L ALT 33 30 (7-52) U/L Alkaline Phosphatase 185 H 156 H (34-104) U/L Albumin 3.1 L 2.9 L (3.4-5.0) gm/dl Urine 02/24/23 Range/Units 22:20 Urine Color Dark Yellow Urine Appearance Clear (Clear) Urine pH 7.0 (4.5-7.5) Ur Specific Dairy 1.021 (1.000-1.030) Urine Protein Negative (Negative) Urine Glucose (UA) Negative (Negative)
[2023-02-25] MEDS: PANTOprazole 40 MG in SYRINGE 0 ML IV SCH (21:55)
[2023-02-25] MEDS: LANTUS PER UNIT CHARGE SQ SCH (21:56)
[2023-02-26] MEDS: PIPERACILLIN/TAZOBACTAM 3.375 GM in DEXTROSE 5% 100 ML IV SCH ×3 (02:52→17:18)
[2023-02-26 08:17] LABS: Hematocrit (blood only) 27.7 % (42.0-52.0); Mean Corpuscular Hgb Conc 32.5 g/dL (32.0-36.0); Mean Corpuscular Volume 95.5 fL (80.0-100.0); Mean Platelet Volume 11.8 fL (9.4-12.4); Platelet Count 88 K/uL (130-400); RDW Coefficient of Variation 19.8 % (11.5-14.5); White Blood Count 3.49 K/ul (4.8-10.8)
[2023-02-26] MEDS: LACTULOSE SYRUP 30 GM/45 ML UDP PO SCH ×4 (08:32→20:57)
[2023-02-26] MEDS: allopurinoL 100 MG TAB PO SCH ×2 (08:34→21:01)
[2023-02-26] MEDS: CITALOPRAM 20 MG TAB PO SCH (08:34)
[2023-02-26] MEDS: MULTIVITAMIN TAB PO SCH (08:35)
[2023-02-26] MEDS: rifAXIMin 550 MG TABLET PO SCH ×2 (08:35→21:01)
[2023-02-26] MEDS: FINASTERIDE 5 MG TAB PO SCH (08:36)
[2023-02-26] MEDS: PANTOprazole 40 MG in SYRINGE 0 ML IV SCH ×2 (08:38→21:00)
[2023-02-26] MEDS: INSULIN ASPART PER UNIT CHARGE SC SCH ×4 (08:43→20:59)
[2023-02-26] MEDS: LANTUS PER UNIT CHARGE SQ SCH ×2 (08:45→21:00)
[2023-02-26 08:59] LABS: Albumin Level 3.2 gm/dl (3.4-5.0); BUN Creatinine Ratio 17.2 (10-20); Bilirubin,Total 5.7 mg/dl (0.2-1.0); Calcium 8.8 mg/dl (8.6-10.3); Creatinine Clr Calc Pharmacy 43.9 ml/min; Est GFR (African American) 50.3 ml/min; Est GFR (Non-African American) 43.4 ml/min; Globulin 3.3 gm/dl (2.5-4.0); Magnesium 1.9 mg/dl (1.7-2.4); Potassium 4.1 mmol/L (3.5-5.1); Total Protein 6.5 gm/dl (6.0-8.3)
[2023-02-26] MEDS ORDERED: INSULIN ASPART PER UNIT CHARGE SC ONE (09:13)
[2023-02-26] MEDS ORDERED: LANTUS PER UNIT CHARGE SQ ONE (09:13)
--- NOTE | 2023-02-26 17:05 | Hospitalist Progress Note ---
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 Consider follow-up multiphase CTA bleeding study if clinically indicated. Severe diverticulosis burden of the sigmoid colon. Mild fat stranding/fluid in the pelvis.Mild acute diverticulitis cannot be excluded. No fluid collection or abscess. No free intraperitoneal air. --CT Head:No acute intracranial process. --Ammonia 252 on presentation Avoid hepatotoxic agents as able Continue lactulose Appreciate GI input Reorient frequently Continue rifaximin Advance diet today Mental status much improved Acute lower GI bleed Likely secondary to hemorrhoids, radiation proctitis, severe sigmoid diverticulosis --CT abd as above No plan for repeat endoscopy per GI Appreciate GI input Continue IV Protonix Hold diuretics for now Monitor H&H and transfuse as needed Hb stable Suspected acute diverticulitis CT as above Continue Zosyn for now Pancytopenia Secondary to liver disease INR within normal limits Monitor platelets Pulmonary hypertension CXR:Cardiomegaly with no acute cardiopulmonary abnormality. Monitor volume status DM II HbA1C 7.8 Continue Insulin per protocol Monitor BGs Prostate cancer S/P radiation, Eligard Left renal mass on outpatient imaging Follows with G urologist DVT Px: SCDs Re: Thrombocytopenia Code Status Full code Disposition PT/OT prior to discharge Admission and Anticipated Discharge Date Admission Date: February 25, 2023 Subjective Patient is seen and examined at bedside Feels a lot better today Mental status seem to be back to baseline Has been having bowel movements Offers no complaints Denies any chest pain, shortness of breath, dizziness, nausea, abdominal pain Review of Systems Review of Systems: All systems reviewed & are unremarkable except as noted in Subjective Physical Exam Physical Exam: Physical Exam: Vitals signs as noted above General Appearance:Moderately built and nourished, Chronic ill appearing, no apparent distress Head: normocephalic, Atraumatic Eyes: normal inspection, EOMI Neck: supple, Trachea midline Respiratory/Chest: Normal breath sounds, CTA, No accessory muscle use Cardiovascular: S1, S2, + murmur Abdomen/GI:Soft, Non tender, Bowel sounds present Extremities/Musculoskeletal:normal inspection, 1+ edema Neurologic/Psych:AAOX3, grossly no focal neurological deficits Skin: normal color, warm,+ psoriasis Results & Data Results & Data Vital Signs (Past 12 Hours) Vital Signs Temp Pulse Pulse Resp BP Pulse Ox O2 Del Method 02/26/23 16:17 36.9 C 61 16 148/50 H 99 Room Air 02/26/23 15:32 62 02/26/23 12:07 36.8 C 59 L 16 100/57 L 98 Room Air 02/26/23 07:00 54 L 02/26/23 08:08 36.7 C 57 L 18 121/64 96 Room Air Laboratory Results Short CBC 02/26/23 Range/Units 07:25 WBC 3.49 L (4.8-10.8) K/ul Hgb 9.0 L (14.0-18.0) g/dl Hct 27.7 L (42.0-52.0) % Plt Count 88 L (130-400) K/uL BMP 02/26/23 07:25 Sodium 145 Potassium 4.1 Chloride 116 H Carbon Dioxide 21 BUN 27 H Creatinine 1.57 H Glucose 124 H Calcium 8.8 Liver Function 02/26/23 Range/Units 07:25 Total Bilirubin 5.7 H D (0.2-1.0) mg/dl AST 41 H (13-39) U/L ALT 27 (7-52) U/L Alkaline Phosphatase 158 H (34-104) U/L Albumin 3.2 L (3.4-5.0) gm/dl
[2023-02-27] MEDS: PIPERACILLIN/TAZOBACTAM 3.375 GM in DEXTROSE 5% 100 ML IV SCH ×2 (02:22→10:28)
[2023-02-27] MEDS: rifAXIMin 550 MG TABLET PO SCH ×2 (07:51→20:47)
[2023-02-27] MEDS: allopurinoL 100 MG TAB PO SCH ×2 (07:51→20:45)
[2023-02-27] MEDS: LACTULOSE SYRUP 30 GM/45 ML UDP PO SCH ×2 (07:51→11:47)
[2023-02-27] MEDS: MULTIVITAMIN TAB PO SCH (07:52)
[2023-02-27] MEDS: CITALOPRAM 20 MG TAB PO SCH (07:53)
[2023-02-27] MEDS: FINASTERIDE 5 MG TAB PO SCH (07:53)
[2023-02-27] MEDS: LANTUS PER UNIT CHARGE SQ SCH ×2 (07:59→20:46)
[2023-02-27] MEDS: INSULIN ASPART PER UNIT CHARGE SC SCH ×4 (07:59→20:45)
[2023-02-27] MEDS: PANTOprazole 40 MG in SYRINGE 0 ML IV SCH (08:00)
[2023-02-27 08:09] LABS: Hematocrit (blood only) 28.3 % (42.0-52.0); Hemoglobin 9.3 g/dl (14.0-18.0); Mean Corpuscular Hemoglobin 30.7 pg (25.0-34.0); Mean Corpuscular Hgb Conc 32.9 g/dL (32.0-36.0); Mean Corpuscular Volume 93.4 fL (80.0-100.0); Mean Platelet Volume 12.2 fL (9.4-12.4); Platelet Count 85 K/uL (130-400); RDW Coefficient of Variation 19.6 % (11.5-14.5); RDW Standard Deviation 66.8 fL (36.4-46.3); Red Blood Count 3.03 M/uL (4.70-6.10); White Blood Count 3.18 K/ul (4.8-10.8)
[2023-02-27 09:28] LABS: Albumin Globulin Ratio 0.9 (0.9-2); Albumin Level 3.2 gm/dl (3.4-5.0); BUN Creatinine Ratio 17.6 (10-20); Bilirubin,Total 4.6 mg/dl (0.2-1.0); Calcium 8.6 mg/dl (8.6-10.3); Creatinine Clr Calc Pharmacy 36.7 ml/min; Est GFR (African American) 40.4 ml/min; Est GFR (Non-African American) 34.9 ml/min; Globulin 3.4 gm/dl (2.5-4.0); Magnesium 1.9 mg/dl (1.7-2.4); Potassium 4.3 mmol/L (3.5-5.1); Total Protein 6.6 gm/dl (6.0-8.3)
[2023-02-27] MEDS ORDERED: SODIUM CHLORIDE 0.9% 500 ML IV ONE (12:59)
[2023-02-27] MEDS: LACTULOSE SYRUP 10 GM/15 ML BTL 960 ML PO SCH ×2 (13:17→20:46)
[2023-02-27] MEDS ORDERED: LACTULOSE SYRUP 30 GM/45 ML UDP PO SCH (14:00)
--- NOTE | 2023-02-27 16:57 | Hospitalist Progress Note ---
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 Consider follow-up multiphase CTA bleeding study if clinically indicated. Severe diverticulosis burden of the sigmoid colon. Mild fat stranding/fluid in the pelvis.Mild acute diverticulitis cannot be excluded. No fluid collection or abscess. No free intraperitoneal air. --CT Head:No acute intracranial process. --Ammonia 252 on presentation Avoid hepatotoxic agents as able Appreciate GI input Continue rifaximin Mental status back to baseline Lactulose dose adjusted: Can hold if patient has 3-4 good bowel movements per day LUCRETIA on CKD III Secondary to GI losses Cr 1.8 today Lactulose decreased Gentle IV fluids Continue to hold diuretics for now Monitor renal function Acute lower GI bleed Likely secondary to hemorrhoids, radiation proctitis, severe sigmoid diverticulosis --CT abd as above No plan for repeat endoscopy per GI Appreciate GI input Continue Protonix Hold diuretics for now Monitor H&H and transfuse as needed Hb stable Suspected acute diverticulitis CT as above Less likely given no symptoms Will discontinue Zosyn Pancytopenia Secondary to liver disease INR within normal limits Monitor platelets Pulmonary hypertension CXR:Cardiomegaly with no acute cardiopulmonary abnormality. Monitor volume status DM II HbA1C 7.8 Continue Insulin per protocol Monitor BGs Prostate cancer S/P radiation, Eligard Left renal mass on outpatient imaging Follows with G urologist DVT Px: SCDs Re: Thrombocytopenia Code Status Full code Disposition PT/OT prior to discharge Admission and Anticipated Discharge Date Admission Date: February 25, 2023 Subjective Patient is seen and examined at bedside States having multiple bowel movements Denies any chest pain, shortness of breath, dizziness, nausea, abdominal pain Renal function worse today Review of Systems Review of Systems: All systems reviewed & are unremarkable except as noted in Subjective Physical Exam Physical Exam: Physical Exam: Vitals signs as noted above General Appearance:Moderately built and nourished, Chronic ill appearing, no apparent distress Head: normocephalic, Atraumatic Eyes: normal inspection, EOMI Neck: supple, Trachea midline Respiratory/Chest: Normal breath sounds, CTA, No accessory muscle use Cardiovascular: S1, S2, + murmur Abdomen/GI:Soft, Non tender, Bowel sounds present Extremities/Musculoskeletal:normal inspection, 1+ edema Neurologic/Psych:AAOX3, grossly no focal neurological deficits Skin: normal color, warm,+ psoriasis Results & Data Results & Data Vital Signs (Past 12 Hours) Vital Signs Temp Pulse Pulse Resp BP BP Pulse Ox 02/27/23 15:14 37.0 C 61 16 127/56 L 97 02/27/23 15:12 60 02/27/23 10:44 36.5 C 55 L 16 118/55 L 98 02/27/23 07:47 36.8 C 55 L 16 101/58 L 98 02/27/23 07:01 58 L O2 Del Method 02/27/23 15:14 Room Air 02/27/23 15:12 02/27/23 10:44 Room Air 02/27/23 07:47 Room Air 02/27/23 07:01 Laboratory Results Short CBC 02/27/23 Range/Units 07:54 WBC 3.18 L (4.8-10.8) K/ul Hgb 9.3 L (14.0-18.0) g/dl Hct 28.3 L (42.0-52.0) % Plt Count 85 L (130-400) K/uL BMP 02/27/23 07:54 Sodium 143 Potassium 4.3 Chloride 114 H Carbon Dioxide 24 BUN 33 H Creatinine 1.88 H D Glucose 138 H Calcium 8.6 Liver Function 02/27/23 Range/Units 07:54 Total Bilirubin 4.6 H (0.2-1.0) mg/dl AST 42 H (13-39) U/L ALT 27 (7-52) U/L Alkaline Phosphatase 164 H (34-104) U/L Albumin 3.2 L (3.4-5.0) gm/dl
[2023-02-27] MEDS: PANTOprazole 40 MG TAB PO SCH (20:47)
[2023-02-28 07:12] LABS: Albumin Globulin Ratio 0.9 (0.9-2); Albumin Level 2.9 gm/dl (3.4-5.0); BUN Creatinine Ratio 21.2 (10-20); Bilirubin,Total 2.9 mg/dl (0.2-1.0); Calcium 7.9 mg/dl (8.6-10.3); Creatinine Clr Calc Pharmacy 44.2 ml/min; Est GFR (African American) 50.7 ml/min; Est GFR (Non-African American) 43.7 ml/min; Globulin 3.2 gm/dl (2.5-4.0); Magnesium 1.8 mg/dl (1.7-2.4); Potassium 4.2 mmol/L (3.5-5.1); Total Protein 6.1 gm/dl (6.0-8.3)
[2023-02-28] MEDS: allopurinoL 100 MG TAB PO SCH (08:51)
[2023-02-28] MEDS: LACTULOSE SYRUP 10 GM/15 ML BTL 960 ML PO SCH ×4 (08:51→13:51)
[2023-02-28] MEDS: CITALOPRAM 20 MG TAB PO SCH (08:52)
[2023-02-28] MEDS: rifAXIMin 550 MG TABLET PO SCH (08:52)
[2023-02-28] MEDS: FINASTERIDE 5 MG TAB PO SCH (08:52)
[2023-02-28] MEDS: MULTIVITAMIN TAB PO SCH (08:53)
[2023-02-28] MEDS: PANTOprazole 40 MG TAB PO SCH (08:53)
[2023-02-28] MEDS: INSULIN ASPART PER UNIT CHARGE SC SCH ×2 (08:59→12:13)
[2023-02-28] MEDS: LANTUS PER UNIT CHARGE SQ SCH (09:00)
[2023-02-28] MEDS ORDERED: SODIUM CHLORIDE 0.9% 500 ML IV ONE (09:25)
[2023-02-28 11:55] VITALS: PULSE 74; TEMP 98.2; O2SAT 96
--- NOTE | 2023-02-28 12:55 | Hospitalist Progress Note ---
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 Consider follow-up multiphase CTA bleeding study if clinically indicated. Severe diverticulosis burden of the sigmoid colon. Mild fat stranding/fluid in the pelvis.Mild acute diverticulitis cannot be excluded. No fluid collection or abscess. No free intraperitoneal air. --CT Head:No acute intracranial process. --Ammonia 252 on presentation Avoid hepatotoxic agents as able Appreciate GI input Continue rifaximin Mental status back to baseline Lactulose dose adjusted: Can hold if patient has 3-4 good bowel movements per day Plan to discharge home today LUCRETIA on CKD III Secondary to GI losses Cr 1.8>>1.5 Lactulose decreased Received gentle IV fluids Monitor renal function Acute lower GI bleed Likely secondary to hemorrhoids, radiation proctitis, severe sigmoid diverticulosis --CT abd as above No plan for repeat endoscopy per GI Appreciate GI input Continue Protonix Monitor H&H and transfuse as needed Hb stable Suspected acute diverticulitis CT as above Less likely given no symptoms Discontinued Zosyn Pancytopenia Secondary to liver disease INR within normal limits Monitor platelets Pulmonary hypertension CXR:Cardiomegaly with no acute cardiopulmonary abnormality. Monitor volume status DM II HbA1C 7.8 Continue Insulin per protocol Monitor BGs Prostate cancer S/P radiation, Eligard Left renal mass on outpatient imaging Follows with G urologist DVT Px: SCDs Re: Thrombocytopenia Code Status Full code Disposition Home Admission and Anticipated Discharge Date Admission Date: February 25, 2023 Subjective Patient is seen and examined at bedside Feels well today No new complaints Denies any chest pain, shortness of breath, dizziness, nausea, abdominal pain Confusion resolved Renal function improved Plan to discharge home today Review of Systems Review of Systems: All systems reviewed & are unremarkable except as noted in Subjective Physical Exam Physical Exam: Physical Exam: Vitals signs as noted above General Appearance:Moderately built and nourished, Chronic ill appearing, no apparent distress Head: normocephalic, Atraumatic Eyes: normal inspection, EOMI Neck: supple, Trachea midline Respiratory/Chest: Normal breath sounds, CTA, No accessory muscle use Cardiovascular: S1, S2, + murmur Abdomen/GI:Soft, Non tender, Bowel sounds present Extremities/Musculoskeletal:normal inspection, 1+ edema Neurologic/Psych:AAOX3, grossly no focal neurological deficits Skin: normal color, warm,+ psoriasis Results & Data Results & Data Vital Signs (Past 12 Hours) Vital Signs Temp Pulse Pulse Resp BP BP Pulse Ox 02/28/23 11:55 36.8 C 74 18 102/49 L 96 02/28/23 08:00 37.1 C 59 L 18 99/46 L 95 02/28/23 06:01 64 02/28/23 02:02 36.9 C 66 18 114/46 L 94 O2 Del Method 02/28/23 11:55 Room Air 02/28/23 08:00 Room Air 02/28/23 06:01 02/28/23 02:02 Room Air Laboratory Results BMP 02/28/23 06:17 Sodium 141 Potassium 4.2 Chloride 115 H Carbon Dioxide 22 BUN 33 H Creatinine 1.56 H D Glucose 127 H Calcium 7.9 L Liver Function 02/28/23 Range/Units 06:17 Total Bilirubin 2.9 H (0.2-1.0) mg/dl AST 40 H (13-39) U/L ALT 26 (7-52) U/L Alkaline Phosphatase 146 H (34-104) U/L Albumin 2.9 L (3.4-5.0) gm/dl
--- NOTE | 2023-02-28 13:07 | Discharge Summary ---
Date of Service February 28, 2023 Admission HPI Per Admitting Provider History obtained from patient and records. Unable to obtain history from patient's secondary to obtunded state. 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 Last confinement November 2022 secondary to multifactorial anemia. Patient underwent endoscopy. EGD showed grade 3 esophageal varices with subsequent banding. Bleeding GAVE lesions treated with APC. Colonoscopy showed rectal angiectasia's consistent with radiation proctopathy status post APC. Patient underwent outpatient IR guided TIPS revision at [facility] 4 days ago. Patient noted to have worsening confusion the last 2 days as per . Patient not compliant with lactulose due to diarrhea side effect as per . No complaints about abdominal pain as per . Belly distention actually better with water pills as per patient . No concerns about bleeding as per . Patient brought to the ER for evaluation. Lactulose enema ordered at the ER. 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 Admission Exam Per Admitting Provider GENERAL: Obtunded, no respiratory distress SKIN: Pallor, warm HEENT: Alopecia, pale palpebral conjunctivae, no ptosis, dry buccal mucosa NECK : Supple, no tenderness CHEST : Decreased breath sounds, no tenderness HEART : Bradycardic, no obvious murmurs ABDOMEN: Some distention, nontender EXTREMITIES : Minimal LE swelling, no LE tenderness, no other conspicuous deformities noted NEUROLOGIC : Obtunded, no facial asymmetry, gait and stance not assessed Principal Diagnosis Acute hepatic encephalopathy LUCRETIA on CKD III Acute lower GI bleed Discharge Data Allergies Allergy/AdvReac Type Severity Reaction Status Date / Time No Known Allergies Allergy Mild Verified 02/24/23 22:30 Consultations 02/24/23 23:35 ED Decision to Admit Stat 02/25/23 00:15 Consult Gastroenterology Routine Procedures Performed Laboratory Results WBC 3.18 K/ul (4.8-10.8) L 02/27/23 07:54 RBC 3.03 M/uL (4.70-6.10) L 02/27/23 07:54 Hgb 9.3 g/dl (14.0-18.0) L 02/27/23 07:54 Hct 28.3 % (42.0-52.0) L 02/27/23 07:54 MCV 93.4 fL (80.0-100.0) 02/27/23 07:54 MCH 30.7 pg (25.0-34.0) 02/27/23 07:54 MCHC 32.9 g/dL (32.0-36.0) 02/27/23 07:54 RDW Std Deviation 66.8 fL (36.4-46.3) H 02/27/23 07:54 RDW Coeff of [place] 19.6 % (11.5-14.5) H 02/27/23 07:54 Plt Count 85 K/uL (130-400) L 02/27/23 07:54 MPV 12.2 fL (9.4-12.4) 02/27/23 07:54 Immature Gran % (Auto) 0.3 % 02/25/23 02:37 Neut % (Auto) 65.3 % 02/25/23 02:37 Lymph % (Auto) 18.1 % 02/25/23 02:37 [place] % (Auto) 7.7 % 02/25/23 02:37 Eos % (Auto) 8.3 % 02/25/23 02:37 Baso % (Auto) 0.3 % 02/25/23 02:37 Neut # (Auto) 2.13 K/uL (1.40-6.50) 02/25/23 02:37 Lymph # (Auto) 0.59 K/uL (1.2-3.4) L 02/25/23 02:37 [place] # (Auto) 0.25 K/uL (0.11-0.59) 02/25/23 02:37 Eos # (Auto) 0.27 K/uL (0-0.50) 02/25/23 02:37 Baso # (Auto) 0.01 K/uL (0-0.2) 02/25/23 02:37 Immature Gran # (Auto) 0.01 K/uL (0.01-0.20) 02/25/23 02:37 Platelet Estimate Decreased (Normal) L 02/25/23 02:37 Polychromasia 1+ 02/25/23 02:37 Tear Drop Cells 2+ 02/25/23 02:37 Ovalocytes 1+ 02/25/23 02:37 PT 12.0 Seconds (9.0-12.0) 02/24/23 22:06 INR 1.1 (0.9-1.1) 02/24/23 22:06 Sodium 141 mmol/L (136-145) 02/28/23 06:17 Potassium 4.2 mmol/L (3.5-5.1) 02/28/23 06:17 Chloride 115 mmol/L (98-107) H 02/28/23 06:17 Carbon Dioxide 22 mmol/L (21-32) 02/28/23 06:17 Anion Gap 4 (3-11) 02/28/23 06:17 BUN 33 mg/dl (6-23) H 02/28/23 06:17 Creatinine 1.56 mg/dl (0.6-1.4) H D 02/28/23 06:17 Est Cr Clr Drug Dosing 44.2 ml/min 02/28/23 06:17 Est GFR ( Amer) 50.7 ml/min 02/28/23 06:17 Est GFR (Non-Af Amer) 43.7 ml/min 02/28/23 06:17 BUN/Creatinine Ratio 21.2 (10-20) H 02/28/23 06:17 Glucose 127 mg/dl (70-99(Fasting)) H 02/28/23 06:17 POC Glucose 199 mg/dl (70-99) H 02/28/23 11:39 Lactate 1.8 mmol/L (0.4-2.0) 02/25/23 05:35 Calcium 7.9 mg/dl (8.6-10.3) L 02/28/23 06:17 Magnesium 1.8 mg/dl (1.7-2.4) 02/28/23 06:17 Total Bilirubin 2.9 mg/dl (0.2-1.0) H 02/28/23 06:17 AST 40 U/L (13-39) H 02/28/23 06:17 ALT 26 U/L (7-52) 02/28/23 06:17 Alkaline Phosphatase 146 U/L (34-104) H 02/28/23 06:17 Ammonia 149.0 umol/L (18-72) H 02/25/23 02:37 Troponin I High Sens 7.9 pg/ml (0-20) 02/24/23 22:06 Total Protein 6.1 gm/dl (6.0-8.3) 02/28/23 06:17 Albumin 2.9 gm/dl (3.4-5.0) L 02/28/23 06:17 Globulin 3.2 gm/dl (2.5-4.0) 02/28/23 06:17 Albumin/Globulin Ratio 0.9 (0.9-2) 02/28/23 06:17 TSH 1.156 uIu/ml (0.300-4.500) 02/24/23 22:06 Urine Color Dark Yellow 02/24/23 22:20 Urine Appearance Clear (Clear) 02/24/23 22:20 Urine pH 7.0 (4.5-7.5) 02/24/23 22:20 Ur Specific [place] 1.021 (1.000-1.030) 02/24/23 22:20 Urine Protein Negative (Negative) 02/24/23 22:20 Urine Glucose (UA) Negative (Negative) 02/24/23 22:20 Urine Ketones Negative (Negative) 02/24/23 22:20 Urine Blood 3+ (Negative) H 02/24/23 22:20 Urine Nitrite Negative (Negative) 02/24/23 22:20 Urine Bilirubin Negative (Negative) 02/24/23 22:20 Urine Urobilinogen Negative (Negative) 02/24/23 22:20 Ur Leukocyte Esterase Negative (Negative) 02/24/23 22:20 Urine WBC (Auto) 1-5 /hpf (0-5) 02/24/23 22:20 Urine RBC (Auto) >30 /hpf (0-4) H 02/24/23 22:20 U Hyaline Cast (Auto) 1-5 /lpf (0-5) 02/24/23 22:20 U Epithel Cells (Auto) >30 /lpf (0-5) H 03/26/23 22:20 Urine Bacteria (Auto) Negative (Negative) 02/24/23 22:20 Ur Renal Epithelial Cell Not Reportable 02/24/23 22:20 Stl C. diff Tox B Gene Negative Cdiff Gene (Neg) 02/26/23 02:53 SARS-CoV-2, RNA, NAAT NEGATIVE (NEGATIVE) 02/24/23 22:28 Blood Type O Positive 02/25/23 02:37 Antibody Screen NEGATIVE 02/25/23 02:37 Impressions Chest X-Ray 02/24/23 22:18 SINGLE VIEW CHEST CLINICAL HISTORY: Generalized weakness. FINDINGS: 2 AP, portable, upright chest radiographs are compared to study dated 12/14/2022. The examination is degraded by portable technique and patient rotation. The the heart is enlarged noting atherosclerotic calcification of the thoracic aorta. The pulmonary vasculature is noncongested. Scarring/atelectasis is noted at both lung bases. The lungs and pleural spaces are otherwise clear. No pneumothorax is seen. The skeletal structures are osteopenic. The bony thorax is grossly intact. IMPRESSION: Cardiomegaly with no acute cardiopulmonary abnormality. ACT 112: Negative or not required by law. Electronically signed by: Scott Yepez M.D. 02/25/2023 7:[address] 02/24/23 22:40 Exam(s): CT HEAD Without Contrast EXAM: CT Head Without Intravenous Contrast CLINICAL HISTORY: Reason for exam: AMS. TECHNIQUE: Axial computed tomography images of the head/brain without intravenous contrast. CTDI is 35.07 mGy and DLP is 691.05 mGy-cm. Automated exposure control was utilized for the study. A dose lowering technique was utilized adhering to the principles of ALARA. COMPARISON: 12/14/22 FINDINGS: Brain: No hemorrhage. No apparent acute cortical infarct. No mass lesion or midline shift. Involutional changes. Ventricles: No hydrocephalus. Bones/joints: No acute fracture. Soft tissues: Unremarkable. Sinuses: No acute sinusitis. Polypoid mucosal thickening Mastoid air cells: No mastoid effusion. Orbits: Unremarkable as visualized. IMPRESSION: No acute intracranial process. Electronically signed by: Lexi Mart M.D. 02/24/23 23:41 PM Abdomen/Pelvis CT 02/25/23 02:14 Exam(s): CT ABDOMEN + PELVIS Without Contrast EXAM: CT Abdomen and Pelvis Without Intravenous Contrast CLINICAL HISTORY: Reason for exam: lgib. TECHNIQUE: Axial computed tomography images of the abdomen and pelvis without intravenous contrast. CTDI is 16.28 mGy and DLP is 921.67 mGy-cm. Automated exposure control was utilized for the study. A dose lowering technique was utilized adhering to the principles of ALARA. COMPARISON: No relevant prior studies available. FINDINGS: Lung bases: Unremarkable. No mass. No consolidation. ABDOMEN: Liver: Unremarkable. Gallbladder and bile ducts: Unremarkable. No calcified stones. No ductal dilation. Pancreas: Unremarkable. No ductal dilation. Spleen: Unremarkable. No splenomegaly. Adrenals: Unremarkable. No mass. Kidneys and ureters: Unremarkable. No obstructing stones. No hydronephrosis. Stomach and bowel: No definite gastrointestinal bleed however, evaluation is limited due to lack of contrast. Consider follow-up multiphase CTA bleeding study if clinically indicated. Severe diverticulosis burden of the sigmoid colon. Mild fat stranding/fluid in the pelvis. Mild acute diverticulitis cannot be excluded. No fluid collection or abscess. No free intraperitoneal air. No obstruction. PELVIS: Appendix: No findings to suggest acute appendicitis. Bladder: Unremarkable. No stones. Reproductive: Unremarkable as visualized. ABDOMEN and PELVIS: Intraperitoneal space: Unremarkable. No free air. No significant fluid collection. Bones/joints: Degenerative changes of the spine. No acute fracture. No dislocation. Soft tissues: Unremarkable. Vasculature: Atherosclerotic changes of the aorta. No abdominal aortic aneurysm. Lymph nodes: Unremarkable. No enlarged lymph nodes. IMPRESSION: 1. No definite gastrointestinal bleed however, evaluation is limited due to lack of contrast. Consider follow-up multiphase CTA bleeding study if clinically indicated. 2. Severe diverticulosis burden of the sigmoid colon. Mild fat stranding/fluid in the pelvis. Mild acute diverticulitis cannot be excluded. No fluid collection or abscess. No free intraperitoneal air. Electronically signed by: Prabhakar Medel MD 02/25/23 03:43 AM Ordered Studies 02/24/23 22:40 CT head/brain wo con Stat 02/25/23 02:14 CT abd pelvis wo con Urgent Hospital Course (1) Hepatic encephalopathy: Acute hepatic encephalopathy 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 H/O medication noncompliance S/P TIPS revision at [facility] recently H/O Hepatocellular carcinoma S/P IR embolization/portal vein thrombus as per records --CT ABD:No definite gastrointestinal bleed however, evaluation is limited due to lack of contrast. Consider follow-up multiphase CTA bleeding study if clinically indicated. Severe diverticulosis burden of the sigmoid colon. Mild fat stranding/fluid in the pelvis.Mild acute diverticulitis cannot be excluded. No fluid collection or abscess. No free intraperitoneal air. --CT Head:No acute intracranial process. --Ammonia 252 on presentation Avoid hepatotoxic agents as able Appreciate GI input Continue rifaximin Mental status back to baseline Lactulose dose adjusted: Can hold if patient has 3-4 good bowel movements per day Plan to discharge home today LUCRETIA on CKD III Secondary to GI losses Cr 1.8>>1.5 Lactulose decreased Received gentle IV fluids Monitor renal function Acute lower GI bleed Likely secondary to hemorrhoids, radiation proctitis, severe sigmoid diverticulosis --CT abd as above No plan for repeat endoscopy per GI Appreciate GI input Continue Protonix Monitor H&H and transfuse as needed Hb stable Suspected acute diverticulitis CT as above Less likely given no symptoms Discontinued Zosyn Pancytopenia Secondary to liver disease INR within normal limits Monitor platelets Pulmonary hypertension CXR:Cardiomegaly with no acute cardiopulmonary abnormality. Monitor volume status DM II HbA1C 7.8 Continue Insulin per protocol Monitor BGs Prostate cancer S/P radiation, Eligard Left renal mass on outpatient imaging Follows with [facility] urologist DVT Px: SCDs Re: Thrombocytopenia Code Status Full code Disposition Home Total Time Total Time Spent Total Time Spent (In Minutes): 54 minutes Discharge Plan Discharge Items Patient Disposition: Home - Self-Care Reason For Visit: ENCEPHALOPATHY Discharge Diagnosis: Acute hepatic encephalopathy LUCRETIA on CKD III Acute lower GI bleed Activity: Per Instructions section Exercise/Sports: Gradually increase as tolerated Non-emergency contact: Primary Care Provider and Drill Operator Automatic Call non-emergency contact if: you have any medication questions, your symptoms worsen, your pain is concerning for you and you have a fever Follow-up/Referrals: Francisco Cisse MD [Primary Care Provider] - (Date & Time 03/06/2023 10:00 AM Provider Gege Herbert MD Department General Internal Medicine [facility] ) Diet: Carb Consistent or DM2 Addtl Attending Provider Instructions: Follow up with your primary care physician on 03/06/2023 10:00 AM Follow-up with your 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 Duncan as needed if you have any recurrence of gastrointestinal bleeding --- Take lactulose regularly as advised to have at least 3-4 good bowel move ments per day --- Can resume Lasix, spironolactone after 2 days upon discharge. Seek immediate medical attention if your symptoms reoccur or worsen Please take all medications as instructed on discharge list below. Please call if you have any questions or problems. You can reach a [facility] hospitalist on duty at [facility] 24 hours a day by calling [phone] Pending Studies at Discharge: No Stand-Alone Forms: My [facility], Smoking Cessation Medications and DC Order Prescriptions: Continued citalopram [Celexa] 10 mg tablet 10 mg PO QAM allopurinol 100 mg Tablet 100 mg PO BID Rx Instructions: PER [facility]--STILL TAKING, PER PT MED LIST--PRESCRIPTION 09/21/22 AND CAN NO LONGER BE REFILLED. LAST FILLED PER EXT MED HX--04/09/2022 FOR 90 DAYS/180 TABS. Xifaxan 550 mg tablet 550 mg PO BID Patient Comments: Part of the "FOFANA" regimen to remove impurities furosemide [Lasix] 20 mg Tablet 40 mg PO QAM spironolactone 100 mg tablet 100 mg PO QAM triamcinolone acetonide 0.1 % cream 1 applic TOPICAL BID PRN (Reason: PSORIATIC LESIONS WHEN NEEDED) mirtazapine 30 mg tablet 30 mg PO HS acetaminophen [Tylenol] 325 mg Tablet 650 mg PO Q8H PRN (Reason: Pain) pantoprazole 40 mg tablet,delayed release (DR/EC) 40 mg PO BID 90 Days Qty: 180 0RF finasteride 5 mg Tablet 5 mg PO QAM insulin glargine [Lantus U-100 Insulin] 100 unit/mL solution 14 unit subcut QDD multivitamin with iron Tablet 1 tab PO QAM Changed lactulose 10 gram/15 mL solution 15 ml PO TID Qty: 473 0RF Discharge Orders: Discharge Order (Routine); Ordered 02/28/23 Ordered By: Tavo Paul Admission Data Admit Date/Time: 02/25/23 00:13 Attending Provider: Tavo Paul Admit Provider: Yordan Andersen Primary Care Provider: Francisco Cisse Other Providers: Yordan Andersen ; Lamar Tatum ; Sean Frances ; Alissa Walsh ; Sue Gray ; Josephine Galeas ; Idalia Luevano ; Everton Marie ; Juaquin Arrington ; Edis Price ; David Duncan ; Andrea Sosa ; Cheyenne Marsh ; Barbara March ; Leydi Wade ; Chrystal Shipley ; Miguel Clarke ; Kyle Pierce ; Festus Urban ; Carlee Bhandari ; Brenda Alcocer Jr
[2023-02-28 13:54] VITALS: BP 114/46
== END 2023-02-28 15:25 | disposition home or self-care (01) | DRG 441 ==
LOC: ED 21:53 → EDINP 02-25 00:13 → 2W 02-25 01:20

== ENCOUNTER 2023-03-07 11:17 | Inpatient (IN) ==
[2023-03-07] MEDS ORDERED: PANTOprazole 80 MG in DEXTROSE 5% 100 ML IV STA (11:26)
[2023-03-07] MEDS ORDERED: PANTOprazole 80 MG in DEXTROSE 5% 100 ML IV ONE (11:26)
[2023-03-07] MEDS ORDERED: FAMOTIDINE 20MG IV PUSH 20 MG/5 ML SYR IV STA (11:26)
[2023-03-07] MEDS ORDERED: SODIUM CHLORIDE 0.9% 500 ML IV SCH (11:30)
--- NOTE | 2023-03-07 11:40 | Emergency Department Note ---
Impression & Plan Acute GI bleeding, Anemia, Liver disease, Hematuria ED Provider Note NAME: MERRITT TAPIA AGE: 72 SEX: M : 1950 ARRIVES VIA: Walk-In INFORMANT: [Patient][family] ED PROVIDER(S): [Scott Huynh MD] CHIEF COMPLAINT: GI assessment HISTORY OF PRESENT ILLNESS: The patient is a 72-year-old male with liver disease. He was discharged from our hospital about a week ago for a very high ammonia level. The patient presents today with blood mixed with his stool since last night and some pinkish discolored urine since last night. No abdominal pain. The last bowel movement had no blood, the last urination still was pink. There has been no fever, no chills, no cough or cold or congestion. The patient does have severe liver disease and is in consideration for liver transplant. PMHx/PSHx: See Below SOCIAL HISTORY: See Below. PHYSICAL EXAM: GENERAL: Patient is in no acute distress. HEENT: No acute trauma, normocephalic atraumatic, mucous membranes moist, no nasal congestion. NECK: No stridor, no adenopathy, no meningismus, trachea is midline. LUNGS: Clear to auscultation bilaterally, no wheeze, no rhonchi, breath sounds equal. HEART: 2/6 systolic murmur, regular rate and rhythm. ABDOMEN: Soft, nontender, bowel sounds positive, no peritonitis. EXTREMITIES: No cyanosis, mild bilateral pedal edema, full range of motion of all the joints without pain or difficulty, no signs for acute trauma. NEUROLOGIC: Oriented x 3, no acute motor or sensory deficits, no focal weakness. SKIN: No rash, no jaundice, no diaphoresis. Pale. DIFFERENTIAL DIAGNOSIS: Lower GI bleeding, upper GI bleeding, colitis or diverticulitis, coagulopathy, anemia, thrombocytopenia, UTI, renal colic, among others. EMERGENCY DEPARTMENT COURSE/PROCEDURES: Prior/Outside records reviewed: Recent discharge summary. ECG per my interpretation: Indication was GI bleed. The ECG shows a sinus bradycardia with a rate of 55. There is no ST elevation, no PVCs. The QTc is 470. Continuous Cardiac Monitoring per my interpretation: An order was placed for continuous cardiac monitoring. The monitor shows a rate of 57 with sinus bradycardia. MEDICAL DECISION MAKING: There is a lower white count, this has been documented before. The patient is anemic with a hemoglobin of 7.8, this is around a two-point drop for him. There is a lower platelet count, this has been documented before. INR is elevated, consistent with his liver disease. There is no renal failure. There were morgan vated liver enzymes, consistent with his liver disease. Ammonia level was elevated at 104, this is high but better than the 200 result from his last hospital stay. ECG showed a sinus bradycardia, no ischemia. Cardiac enzyme testing x1 was not consistent with acute cardiac injury. Urinalysis showed hematuria, no infection. COVID test returned negative. Abdominal and pelvis CT did not show any acute surgical process, no diverticulitis, no bowel obstruction. On exam, the patient was not toxic or febrile, no abdominal pain by palpation. The patient received IV saline, 1 L. He was given IV Protonix. He received IV Pepcid. Patient presents with rectal bleeding and hematuria. He is anemic and although he carries a history of anemia, his hemoglobin today is lower than baseline. He has known liver disease and thus, is coagulopathic. Given his findings, given his history, I do think a hospital stay is warranted. The patient may require a packed red blood transfusion if his hemoglobin drops further or if he continues to have rectal bleeding. I did speak with the patient and case management, the on-call hospitalist was consulted. DISPOSITION: Patient's presentation and findings warrant a hospital stay. Past Med/Surg History Medical History Anemia of chronic disease Cardiac cirrhosis CKD (chronic kidney disease) stage 3, GFR 30-59 ml/min Esophageal varices GAVE (gastric antral vascular ectasia) GERD (gastroesophageal reflux disease) Gout NO ISSUES CURRENTLY History of panic attacks History of recent blood transfusion 11/05/22 Hyperosmolar hyperglycemic state (HHS) Hypertension Prostate cancer (11/10/20) Psoriasis Rectal bleeding hx of Shortness of breath T2DM (type 2 diabetes mellitus) Upper GI bleed hx of Surgical History History of abdominal paracentesis multiple--last 01/14/23 History of colonoscopy with polypectomy History of esophagogastroduodenoscopy (EGD) last 10/25 revealed grade 2 esophageal varices, grade 1 gastric varices STABLE History of prostate biopsy malignant History of tonsillectomy and adenoidectomy S/P TIPS (transjugular intrahepatic portosystemic shunt) Family History Father , "3/4 liver gone due to drinking" Colorectal cancer, Onset Age: 63 Mother Lung cancer Daughter Cancer cervical and thyroid cancers Ovarian cancer Other No family history of adverse response to anesthesia 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 Smoking Status: Never smoker Second Hand Exposure: No; Hx Alcohol Use: No Hx Substance Use: No Preferred Language: Maltese Communication Ability: Effective Visual Impairment: No Limitations Hearing Ability: Normal 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 Beliefs That Will Affect Care: None marital status: Current Living Situation: Spouse Current Living Situation Comment: is currently at [facility] 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 How many Children do You have: 6 How many Children do You have Comment: one , eldest daughter in her sleep from seizure disorder Feels Safe at Home: Yes Childhood Exposure to Second-Hand Smoke: Yes Diet Comment: "I watch my sugar, average fasting is 140 mg/dl" caffeine: Yes (cola, sugar free, decaf) during the past year weight has: remained stable Dental Care, Regularly: No Physical Activity Frequency: Does not Exercise Seatbelt Use: always Sunscreen Use: Yes Assistive Devices: Glasses and Walker Allergies Allergies Allergy/AdvReac Type Severity Reaction Status Date / Time No Known Allergies Allergy Mild Verified 02/24/23 22:30 Home Meds Home Medications Medication Instructions Recorded Confirmed citalopram 10 mg tablet (Celexa) 10 mg PO QAM 03/24/20 03/07/23 allopurinol 100 mg tablet 100 mg PO BID 05/16/20 03/07/23 rifaximin 550 mg tablet (Xifaxan) 550 mg PO BID 12/08/20 03/07/23 finasteride 5 mg tablet 5 mg PO QAM 11/03/21 03/07/23 furosemide 20 mg tablet (Lasix) 40 mg PO QAM 11/02/22 03/07/23 insulin glargine 100 unit/mL 20 unit subcut HS 11/05/22 03/07/23 subcutaneous solution (Lantus U-100 Insulin) multivitamin with iron 1 tab PO QAM 01/14/23 03/07/23 acetaminophen 325 mg tablet 650 mg PO Q8H PRN Pain 02/24/23 03/07/23 (Tylenol) mirtazapine 30 mg tablet 30 mg PO HS 02/24/23 03/07/23 triamcinolone acetonide 0.1 % 1 applic topical BID PRN PSORIATIC 02/24/23 03/07/23 topical cream LESIONS WHEN NEEDED lactulose 10 gram oral packet 10 g PO BID 03/07/23 03/07/23 (Kristalose) repaglinide 1 mg tablet 1 mg PO BID 03/07/23 03/07/23 Previous Rx's Medication Instructions Recorded pantoprazole 40 mg tablet,delayed 40 mg PO BID 90 days #180 tabs 02/28/23 release Results & Data (ED) Vital Signs Vital Signs - 24 hr 03/07/23 11:23 03/07/23 11:26 Temperature 36.3 C L Temperature Source Temporal Artery Scan Pulse Rate 57 L Pulse Rhythm Regular Regular Pulse Strength Normal Respiratory Rate 16 Respiratory Effort / Characteristics Non-Labored Spontaneous Respiratory Depth Normal Respiratory Pattern Regular Blood Pressure 108/61 Blood Pressure Mean 76 Blood Pressure Position Sitting Pulse Oximetry 97 98 Oxygen Delivery Method Room Air Room Air Sepsis Recent Fever Within 48 Hours No Sepsis New/Unexplained Change in Mental Status No Sepsis Action Taken by Nursing No Action Required Home Medications Current Medication List: was personally reviewed by me Laboratory Data Attestation: I reviewed the patient's lab results. 03/07/23 11:26 03/07/23 11:26 Lab Results 03/07/23 03/07/23 03/07/23 Range/Units 11:26 11:26 11:26 WBC 2.92 L (4.8-10.8) K/ul RBC 2.46 L (4.70-6.10) M/uL Hgb 7.8 L (14.0-18.0) g/dl Hct 23.6 L (42.0-52.0) % MCV 95.9 (80.0-100.0) fL MCH 31.7 (25.0-34.0) pg MCHC 33.1 (32.0-36.0) g/dL RDW Std Deviation 71.7 H (36.4-46.3) fL RDW Coeff of Violet[place] 20.3 H (11.5-14.5) % Plt Count 72 L (130-400) K/uL MPV 11.7 (9.4-12.4) fL Immature Gran % (Auto) 0.3 % Neut % (Auto) 63.0 % Lymph % (Auto) 20.9 % [place] % (Auto) 6.5 % Eos % (Auto) 8.6 % Baso % (Auto) 0.7 % Neut # (Auto) 1.84 (1.40-6.50) K/uL Lymph # (Auto) 0.61 L (1.2-3.4) K/uL [place] # (Auto) 0.19 (0.11-0.59) K/uL Eos # (Auto) 0.25 (0-0.50) K/uL Baso # (Auto) 0.02 (0-0.2) K/uL Immature Gran # (Auto) 0.01 (0.01-0.20) K/uL Polychromasia 1+ Anisocytosis Present Tear Drop Cells 2+ Ovalocytes 1+ PT 12.4 H (9.0-12.0) Seconds INR 1.2 H (0.9-1.1) APTT 30.3 (21.0-31.0) Seconds PTT Ratio 1.1 Sodium 140 (136-145) mmol/L Potassium 4.2 (3.5-5.1) mmol/L Chloride 115 H (98-107) mmol/L Carbon Dioxide 19 L (21-32) mmol/L Anion Gap 6 (3-11) BUN 28 H (6-23) mg/dl Creatinine 1.10 (0.6-1.4) mg/dl Est Cr Clr Drug Dosing 62.7 ml/min Est GFR ( Amer) 77.3 ml/min Est GFR (Non-Af Amer) 66.7 ml/min BUN/Creatinine Ratio 25.5 H (10-20) Glucose 130 H (70-99(Fasting)) mg/dl Calcium 8.1 L (8.6-10.3) mg/dl Total Bilirubin 2.4 H (0.2-1.0) mg/dl AST 42 H (13-39) U/L ALT 23 (7-52) U/L Alkaline Phosphatase 165 H (34-104) U/L Ammonia (18-72) umol/L Troponin I High Sens 6.7 (0-20) pg/ml Total Protein 6.2 (6.0-8.3) gm/dl Albumin 2.9 L (3.4-5.0) gm/dl Globulin 3.3 (2.5-4.0) gm/dl Albumin/Globulin Ratio 0.9 (0.9-2) Urine Color Urine Appearance (Clear) Urine pH (4.5-7.5) Ur Specific [place] (1.000-1.030) Urine Protein (Negative) Urine Glucose (UA) (Negative) Urine Ketones (Negative) Urine Blood (Negative) Urine Nitrite (Negative) Urine Bilirubin (Negative) Urine Urobilinogen (Negative) Ur Leukocyte Esterase (Negative) Urine WBC (Auto) (0-5) /hpf Urine RBC (Auto) (0-4) /hpf U Hyaline Cast (Auto) (0-5) /lpf U Epithel Cells (Auto) (0-5) /lpf Urine Bacteria (Auto) (Negative) SARS-CoV-2, RNA, NAAT (NEGATIVE) Blood Type Antibody Screen Crossmatch 03/07/23 03/07/23 03/07/23 Range/Units 11:49 12:16 12:17 WBC (4.8-10.8) K/ul RBC (4.70-6.10) M/uL Hgb (14.0-18.0) g/dl Hct (42.0-52.0) % MCV (80.0-100.0) fL MCH (25.0-34.0) pg MCHC (32.0-36.0) g/dL RDW Std Deviation (36.4-46.3) fL RDW Coeff of Violetta (11.5-14.5) % Plt Count (130-400) K/uL MPV (9.4-12.4) fL Immature Gran % (Auto) % Neut % (Auto) % Lymph % (Auto) % [place] % (Auto) % Eos % (Auto) % Baso % (Auto) % Neut # (Auto) (1.40-6.50) K/uL Lymph # (Auto) (1.2-3.4) K/uL [place] # (Auto) (0.11-0.59) K/uL Eos # (Auto) (0-0.50) K/uL Baso # (Auto) (0-0.2) K/uL Immature Gran # (Auto) (0.01-0.20) K/uL Polychromasia Anisocytosis Tear Drop Cells Ovalocytes PT (9.0-12.0) Seconds INR (0.9-1.1) APTT (21.0-31.0) Seconds PTT Ratio Sodium (136-145) mmol/L Potassium (3.5-5.1) mmol/L Chloride (98-107) mmol/L Carbon Dioxide (21-32) mmol/L Anion Gap (3-11) BUN (6-23) mg/dl Creatinine (0.6-1.4) mg/dl Est Cr Clr Drug Dosing ml/min Est GFR ( Amer) ml/min Est GFR (Non-Af Amer) ml/min BUN/Creatinine Ratio (10-20) Glucose (70-99(Fasting)) mg/dl Calcium (8.6-10.3) mg/dl Total Bilirubin (0.2-1.0) mg/dl AST (13-39) U/L ALT (7-52) U/L Alkaline Phosphatase (34-104) U/L Ammonia (18-72) umol/L Troponin I High Sens (0-20) pg/ml Total Protein (6.0-8.3) gm/dl Albumin (3.4-5.0) gm/dl Globulin (2.5-4.0) gm/dl Albumin/Globulin Ratio (0.9-2) Urine Color Dark Yellow Urine Appearance Clear (Clear) Urine pH 5.0 (4.5-7.5) Ur Specific [place] 1.020 (1.000-1.030) Urine Protein Negative (Negative) Urine Glucose (UA) Negative (Negative) Urine Ketones Negative (Negative) Urine Blood 3+ H (Negative) Urine Nitrite Negative (Negative) Urine Bilirubin Negative (Negative) Urine Urobilinogen Negative (Negative) Ur Leukocyte Esterase Negative (Negative) Urine WBC (Auto) 1-5 (0-5) /hpf Urine RBC (Auto) >30 H (0-4) /hpf U Hyaline Cast (Auto) 1-5 (0-5) /lpf U Epithel Cells (Auto) 0-5 (0-5) /lpf Urine Bacteria (Auto) Negative (Negative) SARS-CoV-2, RNA, NAAT NEGATIVE (NEGATIVE) Blood Type O Positive Antibody Screen NEGATIVE Crossmatch See Detail 03/07/23 Range/Units 12:17 WBC (4.8-10.8) K/ul RBC (4.70-6.10) M/uL Hgb (14.0-18.0) g/dl Hct (42.0-52.0) % MCV (80.0-100.0) fL MCH (25.0-34.0) pg MCHC (32.0-36.0) g/dL RDW Std Deviation (36.4-46.3) fL RDW Coeff of Violetta (11.5-14.5) % Plt Count (130-400) K/uL MPV (9.4-12.4) fL Immature Gran % (Auto) % Neut % (Auto) % Lymph % (Auto) % [place] % (Auto) % Eos % (Auto) % Baso % (Auto) % Neut # (Auto) (1.40-6.50) K/uL Lymph # (Auto) (1.2-3.4) K/uL [place] # (Auto) (0.11-0.59) K/uL Eos # (Auto) (0-0.50) K/uL Baso # (Auto) (0-0.2) K/uL Immature Gran # (Auto) (0.01-0.20) K/uL Polychromasia Anisocytosis Tear Drop Cells Ovalocytes PT (9.0-12.0) Seconds INR (0.9-1.1) APTT (21.0-31.0) Seconds PTT Ratio Sodium (136-145) mmol/L Potassium (3.5-5.1) mmol/L Chloride (98-107) mmol/L Carbon Dioxide (21-32) mmol/L Anion Gap (3-11) BUN (6-23) mg/dl Creatinine (0.6-1.4) mg/dl Est Cr Clr Drug Dosing ml/min Est GFR ( Amer) ml/min Est GFR (Non-Af Amer) ml/min BUN/Creatinine Ratio (10-20) Glucose (70-99(Fasting)) mg/dl Calcium (8.6-10.3) mg/dl Total Bilirubin (0.2-1.0) mg/dl AST (13-39) U/L ALT (7-52) U/L Alkaline Phosphatase (34-104) U/L Ammonia 104.0 H (18-72) umol/L Troponin I High Sens (0-20) pg/ml Total Protein (6.0-8.3) gm/dl Albumin (3.4-5.0) gm/dl Globulin (2.5-4.0) gm/dl Albumin/Globulin Ratio (0.9-2) Urine Color Urine Appearance (Clear) Urine pH (4.5-7.5) Ur Specific [place] (1.000-1.030) Urine Protein (Negative) Urine Glucose (UA) (Negative) Urine Ketones (Negative) Urine Blood (Negative) Urine Nitrite (Negative) Urine Bilirubin (Negative) Urine Urobilinogen (Negative) Ur Leukocyte Esterase (Negative) Urine WBC (Auto) (0-5) /hpf Urine RBC (Auto) (0-4) /hpf U Hyaline Cast (Auto) (0-5) /lpf U Epithel Cells (Auto) (0-5) /lpf Urine Bacteria (Auto) (Negative) SARS-CoV-2, RNA, NAAT (NEGATIVE) Blood Type Antibody Screen Crossmatch Administered Medications Insulin Aspart (Insulin Aspart Per Unit Charge) 0 units SC ACHS JODI Stop: 04/06/23 16:45 Last Admin: 03/07/23 17:30 Dose: Not Given Documented By: Discontinued Medications Ciprofloxacin (Ciprofloxacin Hcl 0.3% Op Soln 2.5 Ml Btl) 1 drops OP NOW ONE Stop: 03/07/23 14:22 Last Admin: 03/07/23 14:44 Dose: 1 drops Documented By: Sodium Chloride (Nss) 500 mls @ 999 mls/hr IV .Q31M JODI Stop: 03/07/23 12:00 Last Infusion: 03/07/23 12:58 Dose: 0 mls/hr Documented By: Admin: 03/07/23 12:20 Dose: 999 mls/hr Documented By: AB Famotidine (Pepcid 20mg Iv Push) 20 mg in 5 mls @ 2.5 mls/min IV NOW STA Stop: 03/07/23 11:27 Last Admin: 03/07/23 12:21 Dose: 2.5 mls/min Documented By: AB Pantoprazole Sodium 80 mg/ (Dextrose) 100 mls @ 400 mls/hr IV ONE STA Stop: 03/07/23 11:40 Last Admin: 03/07/23 12:32 Dose: Not Given Documented By: SILVIO(2) Pantoprazole Sodium 80 mg/ (Dextrose) 120 mls @ 400 mls/hr IV NOW ONE Stop: 03/07/23 11:43 Last Infusion: 03/07/23 12:46 Dose: 0 mls/hr Documented By: Admin: 03/07/23 12:26 Dose: 400 mls/hr Documented By: AB Pantoprazole Sodium 40 mg/ (Dextrose) 100 mls @ 20 mls/hr IV Q5H JODI Stop: 04/06/23 11:44 Last Infusion: 03/07/23 17:34 Dose: 0 mg/hr, 0 mls/hr Documented By: Admin: 03/07/23 12:44 Dose: 8 mg/hr, 20 mls/hr Documented By: Ioversol (Optiray 350 100ml) 86 ml IV ONCE ONE Stop: 03/07/23 13:15 Last Admin: 03/07/23 13:14 Dose: 86 ml Documented By: Imaging Data Radiologist's Impression: Abdomen/Pelvis CT 03/07/23 11:[address] WITH IV CONTRAST CT DOSE: 547.46 mGy.cm HISTORY: GI bleed. Generalized abdominal pain. TECHNIQUE: Multiaxial CT images of the abdomen and pelvis were performed fol lowing the use of intravenous contrast. A dose lowering technique was utilized adhering to the principles of ALARA. COMPARISON STUDY: Abdomen and pelvis CT 02/25/2023. FINDINGS: Mild dependent changes seen at the lung bases. No pneumoperitoneum. No pneumatosis. There is an old mild superior endplate compression deformity at L1 again noted. No acute fractures identified. Mild bilateral gynecomastia. Small amount of ascites with mesenteric and omental edema again noted. This is similar to the prior study. Small fat-containing bilateral inguinal hernias again noted. Gastric wall thickening, unchanged. This may be due to underdistention. Otherw ise, no bowel wall thickening or obstruction. Normal appendix. Extensive colonic diverticulosis. No evidence for acute diverticulitis. Mild bladder wall thickening, unchanged. This is likely due to chronic outlet obstruction from the mildly enlarged prostate gland. No pelvic lymphadenopathy. Prominent periportal lymph nodes remain unchanged. The main portal vein is patent. The portal veins distal to the TIPS within the posterior segment of the right hepatic lobe appear occluded which is likely due to the TIPS. Nodular contour to the liver consistent with cirrhosis. The TIPS remains patent. The main portal vein is also patent. Cholelithiasis. The gallbladder is contracted. Possible 2.5 cm lesion within the left hepatic dome. The spleen remains enlarged measuring 16 cm in length. Stable 2 cm cystic lesion within the pancreatic head/neck. No hydronephrosis. A few subcentimeter hypodensities within the kidneys are too small to characterize but favor cysts. There is a 1.5 cm intermediate density lesion within the left mid kidney on image 201. This may demonstrate enhancement and is therefore concerning for a solid renal mass such as a renal cell carcinoma. IMPRESSION: 1. Cirrhotic liver with splenomegaly and a small amount of ascites. This is similar to the prior study. 2. The TIPS appears patent. 3. Possible 2.5 cm lesion within the left hepatic dome versus an area of focal fat. Follow-up dedicated liver MRI recommended for further evaluation. 4. A 1.5 cm lesion within the left kidney which does not represent a simple cyst. Dedicated renal MRI recommended for further evaluation and to exclude the possibility solid renal mass. 5. Extensive colonic diverticulosis. No evidence for acute diverticulitis. 6. Chronic gastric wall thickening versus underdistention. 7. Bladder wall thickening which may be due to chronic outlet obstruction from the enlarged prostate gland. Recommend correlation with urinalysis. 8. Additional findings as described above. ACT 112: Negative or not required by law. Electronically signed by: Abdoul Gonzalez M.D. 03/07/2023 1:42 PM Discharge Plan Visit Data Chief Complaint: GI Assessment Stated Complaint: RECTAL BLEEDING, HEMATURIA ED Provider: Scott Huynh Discharge Problem: Acute GI bleeding, Anemia, Liver disease, Hematuria Patient Disposition: Admitted As Inpatient Condition: Fair Discharge Instructions Interventions: ED Discharge Assessment Last Done: 03/07/23 16:24
[2023-03-07] MEDS ORDERED: PANTOprazole 40 MG in DEXTROSE 5% 100 ML IV SCH (11:45)
[2023-03-07 12:19] LABS: Basophils # (auto) 0.02 K/uL (0-0.2); Basophils % (auto) 0.7 %; Eosinophils # (auto) 0.25 K/uL (0-0.50); Eosinophils % (auto) 8.6 %; Hematocrit (blood only) 23.6 % (42.0-52.0); Hemoglobin 7.8 g/dl (14.0-18.0); Immature Granulocytes # (auto) 0.01 K/uL (0.01-0.20); Immature Granulocytes % (auto) 0.3 %; Lymphocytes # (auto) 0.61 K/uL (1.2-3.4); Lymphocytes % (auto) 20.9 %; Mean Corpuscular Hemoglobin 31.7 pg (25.0-34.0); Mean Corpuscular Hgb Conc 33.1 g/dL (32.0-36.0); Mean Corpuscular Volume 95.9 fL (80.0-100.0); Mean Platelet Volume 11.7 fL (9.4-12.4); Monocytes # (auto) 0.19 K/uL (0.11-0.59); Monocytes % (auto) 6.5 %; Neutrophils # (auto) 1.84 K/uL (1.40-6.50); Platelet Count 72 K/uL (130-400); RDW Coefficient of Variation 20.3 % (11.5-14.5); RDW Standard Deviation 71.7 fL (36.4-46.3); Red Blood Count 2.46 M/uL (4.70-6.10); White Blood Count 2.92 K/ul (4.8-10.8)
[2023-03-07 12:36] LABS: Albumin Globulin Ratio 0.9 (0.9-2); Albumin Level 2.9 gm/dl (3.4-5.0); BUN Creatinine Ratio 25.5 (10-20); Bilirubin,Total 2.4 mg/dl (0.2-1.0); Calcium 8.1 mg/dl (8.6-10.3); Creatinine Clr Calc Pharmacy 62.7 ml/min; Est GFR (African American) 77.3 ml/min; Est GFR (Non-African American) 66.7 ml/min; Globulin 3.3 gm/dl (2.5-4.0); Potassium 4.2 mmol/L (3.5-5.1); Total Protein 6.2 gm/dl (6.0-8.3)
[2023-03-07 12:42] LABS: Troponin I High Sensitivity 6.7 pg/ml (0-20)
[2023-03-07 12:46] LABS: Appearance Urine Clear (Clear); Bacteria Urine Automated Negative (Negative); Bilirubin Urine Negative (Negative); Blood Urine 3+ (Negative); Color Urine Dark Yellow; Epithelial Cell Urine Auto 0-5 /lpf (0-5); Glucose Urine UA Negative (Negative); Ketones Urine Negative (Negative); Leukocyte Esterase Urine Negative (Negative); Nitrite Urine Negative (Negative); Protein Urine Negative (Negative); RBC Urine Automated >30 /hpf (0-4); Urobilinogen Urine Negative (Negative)
[2023-03-07 12:50] LABS: Anisocytosis Present; INR 1.2 (0.9-1.1); Ovalocytes 1+; Partial Thromboplastin Ratio 1.1; Partial Thromboplastin Time 30.3 Seconds (21.0-31.0); Polychromasia 1+; Prothrombin Time 12.4 Seconds (9.0-12.0); Tear Drop Cells 2+
[2023-03-07] MEDS ORDERED: OPTIRAY 350 100ml IV ONE (13:14)
--- NOTE | 2023-03-07 13:44 | CT Scan Report ---
ABDOMEN AND PELVIS CT WITH IV CONTRAST CT DOSE: 547.46 mGy.cm HISTORY: GI bleed. Generalized abdominal pain. TECHNIQUE: Multiaxial CT images of the abdomen and pelvis were performed following the use of intrave nous contrast. A dose lowering technique was utilized adhering to the principles of ALARA. COMPARISON STUDY: Abdomen and pelvis CT 02/25/2023. FINDINGS: Mild dependent changes seen at the lung bases. No pneumoperitoneum. No pneumatosis. There i s an old mild superior endplate compression deformity at L1 again noted. No acute fractures identifie d. Mild bilateral gynecomastia. Small amount of ascites with mesenteric and omental edema again noted . This is similar to the prior study. Small fat-containing bilateral inguinal hernias again noted. Ga stric wall thickening, unchanged. This may be due to underdistention. Otherwise, no bowel wall thicke jeannette or obstruction. Normal appendix. Extensive colonic diverticulosis. No evidence for acute diverti culitis. Mild bladder wall thickening, unchanged. This is likely due to chronic outlet obstruction fr om the mildly enlarged prostate gland. No pelvic lymphadenopathy. Prominent periportal lymph nodes re main unchanged. The main portal vein is patent. The portal veins distal to the TIPS within the health social work professor ior segment of the right hepatic lobe appear occluded which is likely due to the TIPS. Nodular contou r to the liver consistent with cirrhosis. The TIPS remains patent. The main portal vein is also paten t. Cholelithiasis. The gallbladder is contracted. Possible 2.5 cm lesion within the left hepatic dome . The spleen remains enlarged measuring 16 cm in length. Stable 2 cm cystic lesion within the pancrea tic head/neck. No hydronephrosis. A few subcentimeter hypodensities within the kidneys are too small to characterize but favor cysts. There is a 1.5 cm intermediate density lesion within the left mid ki dney on image 201. This may demonstrate enhancement and is therefore concerning for a solid renal mas s such as a renal cell carcinoma. IMPRESSION: 1. Cirrhotic liver with splenomegaly and a small amount of ascites. This is similar to the prior stud y. 2. The TIPS appears patent. 3. Possible 2.5 cm lesion within the left hepatic dome versus an area of focal fat. Follow-up dedicat ed liver MRI recommended for further evaluation. 4. A 1.5 cm lesion within the left kidney which does not represent a simple cyst. Dedicated renal MRI recommended for further evaluation and to exclude the possibility solid renal mass. 5. Extensive colonic diverticulosis. No evidence for acute diverticulitis. 6. Chronic gastric wall thickening versus underdistention. 7. Bladder wall thickening which may be due to chronic outlet obstruction from the enlarged prostate gland. Recommend correlation with urinalysis. 8. Additional findings as described above. ACT 112: Negative or not required by law. Electronically signed by: Abdoul Gonzalez M.D. 03/07/2023 1:42 PM
[2023-03-07] MEDS ORDERED: CIPROFLOXACIN HCL 0.3% OP SOLN 2.5 ML BTL OP ONE (14:21)
--- NOTE | 2023-03-07 14:22 | History & Physical Report ---
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 GI bleeding Was recently admitted from for hepatic encephalopathy and was noted to have acute lower GI bleed at that time likely 2/2 to hemorrhoids, radiation proctitis and severe sigmoid diverticulosis, no scope at that time per GI BRB mixed in with stools x 8 episodes at home over past 2 days, hgb 7.8 today (previously 9.3 on date of discharge 02/28) Blood consent was obtained from the patient as delegated by Dr. Paul. Risks and benefits were explained. 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 Continue to monitor with daily BMP Pancytopenia 2/2 to liver disease INR 1.2 Monitor platelets Pulmonary hypertension Will obtain admission CXR. No complaints of SOB DM II HbA1C 7.8 Hold home agents SSI while in-patient BSG AC HS Prostate cancer S/P radiation, Eligard Left renal mass on outpatient imaging Follows with G urologist Renal mass Ct abd/pelvis with a 1.5 cm lesion within the left kidney which does not represe nt a simple cyst. Dedicated renal MRI recommended for further evaluation and to exclude the possibility solid renal mass Liver mass CT abd/pelvis with a possible 2.5 cm lesion within the left hepatic dome versus an area of focal fat. Follow-up dedicated liver MRI recommended for further evaluation DVT Ppx: SCDs given thrombocytopenia Code status: FULL PCP: Tanna Dispo: Admitted to PCU Patient seen in collaboration with Dr. Paul. Please see addendum. I spent a total of 80 minutes coordinating, documenting, and providing care for this patient excluding time spent in the performance of separately billed services. 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 Was recently admitted from for hepatic encephalopathy and was noted to have acute lower GI bleed at that time likely secondary to hemorrhoids, radiation proctitis and severe sigmoid diverticulosis. No plan for repeat endoscopy at that time per GI. Hemoglobin was stable at time of discharge at baseline of 9.3. Since discharge home, patient was feeling well until 2 days ago, when he started to note bright red blood mixed in the bowel movements in the toilet bowl was pink. Thinks he also has some blood in his urine. Endorses proximately 8 bowel movements with blood mixed in in the past 2 days as well as once in the ED since arrival. Denies any fever, chills, lightheadedness, dizziness, chest pain, shortness of breath, nausea, vomiting , abdominal pain, dysuria. Had hospital follow-up with Dr. Herbert in clinic yesterday. Lasix and spironolactone were stopped during previous hospitalization due to dehydration but was directed by PCP to resume Lasix at a lower dose. Also planning to start Kristalose packets BID. Allergies Allergy/AdvReac Type Severity Reaction Status Date / Time No Known Allergies Allergy Mild Verified 02/24/23 22:30 Home Medications Medication Instructions Recorded Confirmed Type citalopram 10 mg tablet (Celexa) 10 mg PO QAM 03/24/20 03/07/23 History allopurinol 100 mg tablet 100 mg PO BID 05/16/20 03/07/23 History rifaximin 550 mg tablet (Xifaxan) 550 mg PO BID 12/08/20 03/07/23 History finasteride 5 mg tablet 5 mg PO QAM 11/03/21 03/07/23 History furosemide 20 mg tablet (Lasix) 40 mg PO QAM 11/02/22 03/07/23 History insulin glargine 100 unit/mL 20 unit subcut HS 11/05/22 03/07/23 History subcutaneous solution (Lantus U-100 Insulin) multivitamin with iron 1 tab PO QAM 01/14/23 03/07/23 History acetaminophen 325 mg tablet 650 mg PO Q8H PRN Pain 02/24/23 03/07/23 History (Tylenol) mirtazapine 30 mg tablet 30 mg PO HS 02/24/23 03/07/23 History triamcinolone acetonide 0.1 % 1 applic topical BID PRN PSORIATIC 02/24/23 03/07/23 History topical cream LESIONS WHEN NEEDED pantoprazole 40 mg tablet,delayed 40 mg PO BID 90 days #180 tabs 02/28/23 03/07/23 Rx release lactulose 10 gram oral packet 10 g PO BID 03/07/23 03/07/23 History (Kristalose) repaglinide 1 mg tablet 1 mg PO BID 03/07/23 03/07/23 History Past Med/Surg History Medical History Anemia of chronic disease Cardiac cirrhosis CKD (chronic kidney disease) stage 3, GFR 30-59 ml/min Esophageal varices GAVE (gastric antral vascular ectasia) GERD (gastroesophageal reflux disease) Gout NO ISSUES CURRENTLY History of panic attacks History of recent blood transfusion 11/05/22 Hyperosmolar hyperglycemic state (HHS) Hypertension Prostate cancer (11/10/20) Psoriasis Rectal bleeding hx of Shortness of breath T2DM (type 2 diabetes mellitus) Upper GI bleed hx of Surgical History History of abdominal paracentesis multiple--last 01/14/23 History of colonoscopy with polypectomy History of esophagogastroduodenoscopy (EGD) last 10/25 revealed grade 2 esophageal varices, grade 1 gastric varices STABLE History of prostate biopsy malignant History of tonsillectomy and adenoidectomy S/P TIPS (transjugular intrahepatic portosystemic shunt) Family History Father , "3/4 liver gone due to drinking" Colorectal cancer, Onset Age: 63 Mother Lung cancer Daughter Cancer cervical and thyroid cancers Ovarian cancer Other No family history of adverse response to anesthesia 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 Smoking Status: Never smoker Second Hand Exposure: No; Hx Alcohol Use: No Hx Substance Use: No Preferred Language: Cymro Communication Ability: Effective Visual Impairment: No Limitations Hearing Ability: Normal It Trainee Required: No Beliefs That Will Affect Care: None marital status: Current Living Situation: Spouse Current Living Situation Comment: is currently at [facility] 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 Physical Exam Physical Exam: General Appearance: WD/WN, vitals as above, NAD, sitting up in bed, pleasant, conversing easily Head: normocephalic, atraumatic Eyes: normal inspection, PERRL, conjunctivae normal, +icteric sclerae ENT: external ear and nose normal, oropharynx normal Neck: normal visual inspection, trachea midline, no thyromegaly Respiratory: normal respiratory effort, lungs clear to auscultation, no wheeze, rales, rhonchi. No accessory muscle use Cardiovascular: regular rate, rhythm, + systolic murmur, normal peripheral pulses, no BLE edema. Vessels: no JVD Chest: normal inspection of chest Abdomen/GI: normal bowel sounds, soft, nontender, no hepatosplenomegaly Extremities/Musculoskeletal: no cyanosis or clubbing, extremities motor strength 5/5 Neurologic: PERRL, EOMI, accommodation nl, no face palsy, no dysarthria, CN's II-XI intact bilaterally and moves all extremities Psychiatric: A+Ox4, euthymic affect Skin: no rashes, jaundice, warm/dry Results & Data Results & Data Vital Signs (Past 12 Hours) Vital Signs Temp Pulse Resp BP Pulse Ox O2 Del Method 03/07/23 11:26 98 Room Air 03/07/23 11:23 36.3 C L 57 L 16 108/61 97 Room Air Laboratory Results Short CBC 03/07/23 Range/Units 11:26 WBC 2.92 L (4.8-10.8) K/ul Hgb 7.8 L (14.0-18.0) g/dl Hct 23.6 L (42.0-52.0) % Plt Count 72 L (130-400) K/uL BMP 03/07/23 11:26 Sodium 140 Potassium 4.2 Chloride 115 H Carbon Dioxide 19 L BUN 28 H Creatinine 1.10 Glucose 130 H Calcium 8.1 L Liver Function 03/07/23 Range/Units 11:26 Total Bilirubin 2.4 H (0.2-1.0) mg/dl AST 42 H (13-39) U/L ALT 23 (7-52) U/L Alkaline Phosphatase 165 H (34-104) U/L Albumin 2.9 L (3.4-5.0) gm/dl Urine 03/07/23 Range/Units 12:16 Urine Color Dark Yellow Urine Appearance Clear (Clear) Urine pH 5.0 (4.5-7.5) Ur Specific [place] 1.020 (1.000-1.030) Urine Protein Negative (Negative) Urine Glucose (UA) Negative (Negative) Diagnostic Findings Abdomen/Pelvis CT 03/07/23 11:[address] WITH IV CONTRAST CT DOSE: 547.46 mGy.cm HISTORY: GI bleed. Generalized abdominal pain. TECHNIQUE: Multiaxial CT images of the abdomen and pelvis were performed following the use of intravenous contrast. A dose lowering technique was utilized adhering to the principles of ALARA. COMPARISON STUDY: Abdomen and pelvis CT 02/25/2023. FINDINGS: Mild dependent changes seen at the lung bases. No pneumoperitoneum. No pneumatosis. There is an old mild superior endplate compression deformity at L1 again noted. No acute fractures identified. Mild bilateral gynecomastia. Small amount of ascites with mesenteric and omental edema again noted. This is similar to the prior study. Small fat-containing bilateral inguinal hernias again noted. Gastric wall thickening, unchanged. This may be due to underdistention. Otherwise, no bowel wall thickening or obstruction. Normal appendix. Extensive colonic diverticulosis. No evidence for acute diverticulitis. Mild bladder wall thickening, unchanged. This is likely due to chronic outlet obstruction from the mildly enlarged prostate gland. No pelvic lymphadenopathy. Prominent periportal lymph nodes remain unchanged. The main portal vein is patent. The portal veins distal to the TIPS within the posterior segment of the right hepatic lobe appear occluded which is likely due to the TIPS. Nodular contour to the liver consistent with cirrhosis. The TIPS remains patent. The main portal vein is also patent. Cholelithiasis. The gallbladder is contracted. Possible 2.5 cm lesion within the left hepatic dome. The spleen remains enlarged measuring 16 cm in length. Stable 2 cm cystic lesion within the pancreatic head/neck. No hydronephrosis. A few subcentimeter hypodensities within the kidneys are too small to characterize but favor cysts. There is a 1.5 cm intermediate density lesion within the left mid kidney on image 201. This may demonstrate enhancement and is therefore concerning for a solid renal mass such as a renal cell carcino ma. IMPRESSION: 1. Cirrhotic liver with splenomegaly and a small amount of ascites. This is similar to the prior study. 2. The TIPS appears patent. 3. Possible 2.5 cm lesion within the left hepatic dome versus an area of focal fat. Follow-up dedicated liver MRI recommended for further evaluation. 4. A 1.5 cm lesion within the left kidney which does not represent a simple cyst. Dedicated renal MRI recommended for further evaluation and to exclude the possibility solid renal mass. 5. Extensive colonic diverticulosis. No evidence for acute diverticulitis. 6. Chronic gastric wall thickening versus underdistention. 7. Bladder wall thickening which may be due to chronic outlet obstruction from the enlarged prostate gland. Recommend correlation with urinalysis. 8. Additional findings as described above. ACT 112: Negative or not required by law. Electronically signed by: Abdoul Gonzalez M.D. 03/07/2023 1:42 PM ECG Additional Comments: EKG reviewed with normal sinus rhythm, nonspecific T wave abnormality no longer evident in Lateral leads Code Status & VTE Plan VTE Prophylaxis Plan VTE Prophylaxis will be ordered: Yes Supervising Physician Co-Signing Physician Notes Patient is a 72-year-old male with history of nonalcoholic fatty liver disease cirrhosis, TIPS, hepatocellular carcinoma, esophageal varices, hypertensive gastropathy, radiation proctitis, diverticulosis, diabetes mellitus and other medical problems presents with history of bright red blood per rectum. Patient had similar episodes during last admission and was thought to have bleeding from hemorrhoids, radiation proctitis and diverticulosis. He is currently not on any aspirin, NSAIDs, anticoagulation. He denies any fever, abdominal pain, nausea, vomiting. He has chronic diarrhea secondary to lactulose use. He also states having blood in urine. Denies any dysuria. please review HPI for complete details of presentation. I personally reviewed blood work, imaging studies, EKG. Physical Exam: Vitals signs as noted above General Appearance:Moderately built and nourished, Chronic ill appearing, no apparent distress Head: normocephalic, Atraumatic Eyes: normal inspection, EOMI Neck: supple, Trachea midline Respiratory/Chest: Normal breath sounds, CTA, No accessory muscle use Cardiovascular: S1, S2, + murmur Abdomen/GI:Soft, Non tender, Bowel sounds present Extremities/Musculoskeletal:normal inspection, 1-2+ edema Neurologic/Psych:AAOX3, grossly no focal neurological deficits Skin: normal color, warm,+ psoriasis GI bleed Hematuria FOFANA cirrhosis H/O GAVE/esophageal varices/portal hypertensive gastropathy/radiation proctitis/diverticulosis Renal mass Hepatic lesion Monitor H&H and transfuse as needed IV Protonix Avoid anticoagulation, NSAIDs, aspirin GI consulted N.p.o. after midnight Appreciate urology input Gentle IV fluids Monitor volume status Will need further work-up as outpatient for evaluation of renal and hepatic mass. Obtain stool studies to rule out any acute infection I personally reviewed the record. Patient is interviewed and examined at bedside. Patient's care is coordinated with Maura Fitzpatrick PA-C. Please refer to the documentation above for details of patient's presentation and for discussion of other issues. (1) GI (gastrointestinal bleed) GI bleed type/associated pathology: anorectal hemorrhage Qualified Code(s): K62.5 - Hemorrhage of anus and rectum (7) GERD (gastroesophageal reflux disease) Esophagitis presence: esophagitis presence not specified Qualified Code(s): K21.9 - Gastro-esophageal reflux disease without esophagitis
[2023-03-07] MEDS ORDERED: SODIUM CHLORIDE 0.9% 250 ML IV PRN (15:39)
[2023-03-07] MEDS ORDERED: TRIAMCINOLONE ACET 0.1% CR 15 GM TUBE TOP PRN (15:50)
--- NOTE | 2023-03-07 16:02 | XRay Report ---
XR chest 1V portable CLINICAL HISTORY: admission TECHNIQUE: Single frontal radiograph of the chest was obtained. Comparison: Comparison is made to chest radiograph 02/24/2023 FINDINGS: No lines and tubes are seen. Cardiomegaly is noted. The lungs are clear. No evidence of pleural effus ion or pneumothorax. IMPRESSION: No acute chest disease. ACT 112: Negative or not required by law. Electronically signed by: Arik Flowers M.D. 03/07/2023 4:01 PM
--- NOTE | 2023-03-07 16:11 | Urology Consultation ---
Date of Consultation March 07, 2023 Assessment & Plan (1) Left renal mass: (2) Gross hematuria: Plan 72-year-old male with a history of liver failure and hepatocellular carcinoma on the transplant list who has hematuria and a left renal mass. Patient is voiding spontaneously without any clots. Continue to monitor. 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 Recommend that he follows up with his primary urologist, Dr. Peraza for further work-up. Typical hematuria work-up would include a CT urogram and a cystoscopy. Regarding his left renal mass, this has been stable for numerous years and given his comorbidities and it's size, I would not recommend any intervention. That being said, if he is on a transplant list they will need to rule out cancer and this should be discussed with Dr. Peraza and his [facility] transplant team as an outpatient. Recommended patient touch base with Dr. Peraza as soon as he is discharged for the above-noted issues Urology to sign off History of Present Illness Reason for Consultation: Hematuria, left renal mass History of Present Illness 72-year-old male with significant comorbidities including liver failure and hepatocellular carcinoma who is on the liver transplant at [facility]. He has a history of prostate cancer status post radiation and is followed by Dr. Frank Peraza of [place]. He presented to the hospital today with blood in his urine and blood in his stool. He is afebrile and hemodynamically stable. Review of his labs shows a white blood cell count of 2.9, hemoglobin of 7.8, platelets of 72, creatinine of 1.10, and INR of 1.2. Urinalysis showed negative nitrates, negative leukocyte Estrace, 1-5 WBCs, greater than 30+ RBCs and no bacteria. Independent review of the CT scan done earlier today of the abdomen pelvis with IV contrast shows a 1.5 cm lesion within the left kidney which does not appear to be a simple cyst. There is also bladder wall thickening. Review of previous imaging shows an abdominal MRI from 01/29/2022 shows a stable 1.5 cm cystic lesion with internal thickened septations that had not changed since essentially August 2014. They suggest there is a possible cystic neoplasm. He reports his urine was pink. He denies any urinary symptoms or incomplete emptying. He denies any passage of clots. Allergies Allergy/AdvReac Type Severity Reaction Status Date / Time No Known Allergies Allergy Mild Verified 02/24/23 22:30 Home Medications Medication Instructions Recorded Confirmed Type citalopram 10 mg tablet (Celexa) 10 mg PO QAM 03/24/20 03/07/23 History allopurinol 100 mg tablet 100 mg PO BID 05/16/20 03/07/23 History rifaximin 550 mg tablet (Xifaxan) 550 mg PO BID 12/08/20 03/07/23 History finasteride 5 mg tablet 5 mg PO QAM 11/03/21 03/07/23 History furosemide 20 mg tablet (Lasix) 40 mg PO QAM 11/02/22 03/07/23 History insulin glargine 100 unit/mL 20 unit subcut HS 11/05/22 03/07/23 History subcutaneous solution (Lantus U-100 Insulin) multivitamin with iron 1 tab PO QAM 01/14/23 03/07/23 History acetaminophen 325 mg tablet 650 mg PO Q8H PRN Pain 02/24/23 03/07/23 History (Tylenol) mirtazapine 30 mg tablet 30 mg PO HS 02/24/23 03/07/23 History triamcinolone acetonide 0.1 % 1 applic topical BID PRN PSORIATIC 02/24/23 03/07/23 History topical cream LESIONS WHEN NEEDED pantoprazole 40 mg tablet,delayed 40 mg PO BID 90 days #180 tabs 02/28/23 03/07/23 Rx release lactulose 10 gram oral packet 10 g PO BID 03/07/23 03/07/23 History (Kristalose) repaglinide 1 mg tablet 1 mg PO BID 03/07/23 03/07/23 History Patient History Medical History (Updated 03/07/23 @ 16:16 by Raulito Rashid MD) Anemia of chronic disease Cardiac cirrhosis CKD (chronic kidney disease) stage 3, GFR 30-59 ml/min Esophageal varices GAVE (gastric antral vascular ectasia) GERD (gastroesophageal reflux disease) Gout NO ISSUES CURRENTLY History of panic attacks History of recent blood transfusion 11/05/22 Hyperosmolar hyperglycemic state (HHS) Hypertension Prostate cancer (11/10/20) Psoriasis Rectal bleeding hx of Shortness of breath T2DM (type 2 diabetes mellitus) Upper GI bleed hx of Surgical History History of abdominal paracentesis multiple--last 01/14/23 History of colonoscopy with polypectomy History of esophagogastroduodenoscopy (EGD) last 10/25 revealed grade 2 esophageal varices, grade 1 gastric varices STABLE History of prostate biopsy malignant History of tonsillectomy and adenoidectomy S/P TIPS (transjugular intrahepatic portosystemic shunt) Family History Father , "3/4 liver gone due to drinking" Colorectal cancer, Onset Age: 63 Mother Lung cancer Daughter Cancer cervical and thyroid cancers Ovarian cancer Other No family history of adverse response to anesthesia 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 Smoking Status: Never smoker Second Hand Exposure: No; Hx Alcohol Use: No Hx Substance Use: No Preferred Language: Kiswahili Communication Ability: Effective Visual Impairment: No Limitations Hearing Ability: Normal Spool Hauler Required: No Beliefs That Will Affect Care: None marital status: Current Living Situation: Spouse Current Living Situation Comment: is currently at [facility] 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 How many Children do You have: 6 How many Children do You have Comment: one , eldest daughter in her sleep from seizure disorder Feels Safe at Home: Yes Childhood Exposure to Second-Hand Smoke: Yes Diet Comment: "I watch my sugar, average fasting is 140 mg/dl" caffeine: Yes (cola, sugar free, decaf) during the past year weight has: remained stable Dental Care, Regularly: No Physical Activity Frequency: Does not Exercise Seatbelt Use: always Sunscreen Use: Yes Assistive Devices: Walker Review of Systems Review of Systems: 14 point review of systems negative outside of what is listed above in HPI Physical Exam Physical Exam: General: Alert and oriented, no acute distress HEENT: Normocephalic, mucous membranes moist Pulmonary: Nonlabored respirations Abdomen: Nondistended Extremities: Moves all 4 spontaneously Neuro: No gross deficits Skin: Warm, dry, no rashes noted Results & Data Vital Signs (Past 12 Hours) Vital Signs Temp Pulse Pulse Resp BP BP Pulse Ox 03/07/23 14:26 52 L 16 143/70 H 99 03/07/23 14:33 55 L 03/07/23 11:26 98 03/07/23 11:23 36.3 C L 57 L 16 108/61 97 O2 Del Method 03/07/23 14:26 Room Air 03/07/23 14:33 03/07/23 11:26 Room Air 03/07/23 11:23 Room Air PG Care Time/CCT Total # of Minutes Spent Total Time Spent with Patient: Total time spent is greater than 50% in coordination of care (as documented) at patient's floor/unit and/or counseling patient: Coding Level of Care Code 28074 INT INP/OBS CARE 2/55MIN Diagnoses Left renal mass N28.89 Gross hematuria R31.0
[2023-03-07] MEDS ORDERED: GLUCOSE 40% GEL 15 GM TUBE PO PRN (16:46)
[2023-03-07] MEDS ORDERED: ACETAMINOPHEN 325 MG TAB PO PRN (16:46)
[2023-03-07] MEDS ORDERED: CARBOHYDRATES FOR HYPOGLYCEMIA PO PRN (16:46)
[2023-03-07] MEDS ORDERED: ONDANSETRON INJ 2 MG/ML 2 ML VIAL IV PRN (16:46)
[2023-03-07] MEDS ORDERED: GLUCAGON FOR INJ 1 MG VIAL SQ PRN (16:46)
[2023-03-07] MEDS ORDERED: POLYETHYLENE (MIRALAX) 17 GM PACK PO PRN (16:46)
[2023-03-07] MEDS ORDERED: DEXTROSE 50% 50 ML SYRINGE IV PRN (16:46)
[2023-03-07] MEDS ORDERED: GLUCOSE 10 TAB/TUBE PO PRN (16:46)
--- NOTE | 2023-03-07 16:48 | Electrocardiogram Report ---
Test Reason : Blood Pressure : / mmHG Vent. Rate : 055 BPM Atrial Rate : 055 BPM P-R Int : 192 ms QRS Dur : 092 ms QT Int : 492 ms P-R-T Axes : 049 -10 028 degrees QTc Int : 470 ms Sinus bradycardia Otherwise normal ECG When compared with ECG of 24-FEB-2023 22:00, Nonspecific T wave abnormality no longer evident in Lateral leads Confirmed by Pedro Carlson ([id number]) on 03/07/2023 4:48:24 PM Referred By: Francisco Cisse Confirmed By:Pedro Carlson
[2023-03-07] MEDS: INSULIN ASPART PER UNIT CHARGE SC SCH ×2 (17:30→21:19)
[2023-03-07 19:25] LABS: Hemoglobin 7.6 g/dl (14.0-18.0)
[2023-03-07] MEDS ORDERED: PANTOprazole 40 MG TAB PO SCH (21:00)
[2023-03-07] MEDS: LACTULOSE SYRUP 20 GM/30 ML UDC PO SCH (21:21)
[2023-03-07] MEDS: LANTUS PER UNIT CHARGE SQ SCH (21:28)
[2023-03-07] MEDS: rifAXIMin 550 MG TABLET PO SCH (21:29)
[2023-03-07] MEDS: MIRTAZAPINE TAB 15 MG TAB PO SCH (21:29)
[2023-03-07] MEDS: allopurinoL 100 MG TAB PO SCH (21:29)
[2023-03-07] MEDS: PANTOprazole 40 MG in SYRINGE 0 ML IV SCH (21:29)
[2023-03-07] MEDS ORDERED: SODIUM CHLORIDE 0.9% 1000ML 1,000 ML IV SCH (22:00)
[2023-03-07] MEDS ORDERED: MAGNESIUM SULFATE / D5W 1 GM/100 ML BAG IV ONE (22:40)
[2023-03-07 23:04] LABS: Magnesium 1.7 mg/dl (1.7-2.4)
[2023-03-08] MEDS ORDERED: MAGNESIUM SULFATE / D5W 1 GM/100 ML BAG IV ONE (05:46)
[2023-03-08 06:36] LABS: Hematocrit (blood only) 24.2 % (42.0-52.0); Mean Corpuscular Hemoglobin 32.1 pg (25.0-34.0); Mean Corpuscular Hgb Conc 33.1 g/dL (32.0-36.0); Mean Corpuscular Volume 97.2 fL (80.0-100.0); Mean Platelet Volume 12.8 fL (9.4-12.4); Platelet Count 66 K/uL (130-400); RDW Standard Deviation 71.7 fL (36.4-46.3); Red Blood Count 2.49 M/uL (4.70-6.10); White Blood Count 2.65 K/ul (4.8-10.8)
[2023-03-08 07:31] LABS: Albumin Level 2.6 gm/dl (3.4-5.0); Bilirubin,Total 3.2 mg/dl (0.2-1.0); Calcium 7.9 mg/dl (8.6-10.3); Potassium 3.9 mmol/L (3.5-5.1)
[2023-03-08 07:37] LABS: Albumin Globulin Ratio 0.9 (0.9-2); BUN Creatinine Ratio 21.5 (10-20); Creatinine Clr Calc Pharmacy 64.4 ml/min; Globulin 2.9 gm/dl (2.5-4.0); Total Protein 5.5 gm/dl (6.0-8.3)
[2023-03-08] MEDS: INSULIN ASPART PER UNIT CHARGE SC SCH ×4 (08:33→20:49)
[2023-03-08] MEDS: PANTOprazole 40 MG in SYRINGE 0 ML IV SCH ×2 (08:40→20:08)
[2023-03-08] MEDS: CEROVITE ADV FORMULA TAB PO SCH (08:40)
[2023-03-08] MEDS: CITALOPRAM 20 MG TAB PO SCH (08:40)
[2023-03-08] MEDS: FINASTERIDE 5 MG TAB PO SCH (08:40)
[2023-03-08] MEDS: rifAXIMin 550 MG TABLET PO SCH ×2 (08:40→20:08)
[2023-03-08] MEDS: allopurinoL 100 MG TAB PO SCH ×2 (08:40→20:08)
[2023-03-08] MEDS: LACTULOSE SYRUP 20 GM/30 ML UDC PO SCH ×2 (08:41→20:08)
[2023-03-08] MEDS: LANTUS PER UNIT CHARGE SQ SCH ×2 (08:45→20:53)
--- NOTE | 2023-03-08 11:19 | Gastrointestinal Consultation ---
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 Outpt EGD. Would resume OP meds and follow Hb/Hct for another day prior to DC. Will follow closely in the OP GI office. Supervising Physician Co-Signing Physician Notes I interviewed and examined pt, reviewed chart aand labs. Pt with decrease in hgb, without evidence of active GIB. Likely blood loss related to GAVE/CAROL. Consider IV iron, plan outpt EGD. OK for d/c tomorrow if hgb stable overnight. History of Present Illness Reason for Consultation: GI Bleed, liver lesion, cirrhosis Requesting Physician: Maura Fitzpatrick PA-C Attending Physician: Tavo Paul MD History of Present Illness Mr [id number] male with history of FOFANA cirrhosis, complicated by EV, PHG, prior hepatic encephalopathy, HCC S/P IR tx, TIPS, prostate CA S/P tx and radiation proctitis, diverticulosis, DM-2 and other medical problems as below presented to the ED yesterday for blood in his urine and rectal bleeding. He reports that he passed several BMs yesterday morning consisting mostly of bright red blood. On arrival, hb 7.8, cow from 9.3 last week. He received one unit of RBCs and Hb this morning is 8.0. BUN has been normal. He has not had further gross GI bleeding since arrival. He does not have any abd pain, N/V, jaundice or confusion. CTAP also suggested a new liver lesion, but he is being followed by IR, Dr. Lim, most recent liver MRI was in January and his case was discussed in tumor board last week w recommendation for repeat MRI in 6m. Most recent EGD was February 01: no EV, there was a gastric varice that was banded/irradicated adn a large duodenal varices. Most recent lower endoscopy was in November, radiation proctitis was treated w APCs; has internal hemorrhoids. He appears well, w/o jaundice or confusion. I was able to see his most recent BM which was yellow/brown w/o any gross GI bleeding. Allergies Allergy/AdvReac Type Severity Reaction Status Date / Time No Known Allergies Allergy Mild Verified 02/24/23 22:30 Home Medications Medication Instructions Recorded Confirmed Type citalopram 10 mg tablet (Celexa) 10 mg PO QAM 03/24/20 03/07/23 History allopurinol 100 mg tablet 100 mg PO BID 05/16/20 03/07/23 History rifaximin 550 mg tablet (Xifaxan) 550 mg PO BID 12/08/20 03/07/23 History finasteride 5 mg tablet 5 mg PO QAM 11/03/21 03/07/23 History furosemide 20 mg tablet (Lasix) 40 mg PO QAM 11/02/22 03/07/23 History insulin glargine 100 unit/mL 20 unit subcut HS 11/05/22 03/07/23 History subcutaneous solution (Lantus U-100 Insulin) multivitamin with iron 1 tab PO QAM 01/14/23 03/07/23 History acetaminophen 325 mg tablet 650 mg PO Q8H PRN Pain 02/24/23 03/07/23 History (Tylenol) mirtazapine 30 mg tablet 30 mg PO HS 02/24/23 03/07/23 History triamcinolone acetonide 0.1 % 1 applic topical BID PRN PSORIATIC 02/24/23 03/07/23 History topical cream LESIONS WHEN NEEDED pantoprazole 40 mg tablet,delayed 40 mg PO BID 90 days #180 tabs 02/28/23 03/07/23 Rx release lactulose 10 gram oral packet 10 g PO BID 03/07/23 03/07/23 History (Kristalose) repaglinide 1 mg tablet 1 mg PO BID 03/07/23 03/07/23 History Patient History Medical History Anemia of chronic disease Cardiac cirrhosis CKD (chronic kidney disease) stage 3, GFR 30-59 ml/min Esophageal varices GAVE (gastric antral vascular ectasia) GERD (gastroesophageal reflux disease) Gout NO ISSUES CURRENTLY History of panic attacks History of recent blood transfusion 11/05/22 Hyperosmolar hyperglycemic state (HHS) Hypertension Prostate cancer (11/10/20) Psoriasis Rectal bleeding hx of Shortness of breath T2DM (type 2 diabetes mellitus) Upper GI bleed hx of Surgical History History of abdominal paracentesis multiple--last 01/14/23 History of colonoscopy with polypectomy History of esophagogastroduodenoscopy (EGD) last 10/25 revealed grade 2 esophageal varices, grade 1 gastric varices STABLE History of prostate biopsy malignant History of tonsillectomy and adenoidectomy S/P TIPS (transjugular intrahepatic portosystemic shunt) Family History Father , "3/4 liver gone due to drinking" Colorectal cancer, Onset Age: 63 Mother Lung cancer Daughter Cancer cervical and thyroid cancers Ovarian cancer Other No family history of adverse response to anesthesia 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 Smoking Status: Never smoker Second Hand Exposure: No; Hx Alcohol Use: No Hx Substance Use: No Preferred Language: Scottish Communication Ability: Effective Visual Impairment: No Limitations Hearing Ability: Normal Television Cameraman Required: No Beliefs That Will Affect Care: None marital status: Current Living Situation: Spouse Current Living Situation Comment: is currently at [facility] 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 How many Children do You have: 6 How many Children do You have Comment: one , eldest daughter in her sleep from seizure disorder Feels Safe at Home: Yes Childhood Exposure to Second-Hand Smoke: Yes Diet Comment: "I watch my sugar, average fasting is 140 mg/dl" caffeine: Yes (cola, sugar free, decaf) during the past year weight has: remained stable Dental Care, Regularly: No Physical Activity Frequency: Does not Exercise Seatbelt Use: always Sunscreen Use: Yes Assistive Devices: Glasses and Walker Review of Systems Review of Systems: ROS: Gen: Denies weakness, fevers, weight loss Eyes: No eye redness, or pain, no recent vision changes Resp: No SOB, no cough Cardio: No palpitations/irregular beats, no chest pain GI: As per HPI, otherwise (-) : Denies pain on urination Skin: + rash of psoriasis; No jaundice, itching or new rashes Physical Exam Constitutional: WD/WN, vitals as above Eyes: PERRL, conjunctivae normal, anicteric sclerae ENMT: external ear and nose normal, oropharynx normal Neck: trachea midline, no thyromegaly Respiratory: normal respiratory effort, lungs clear to auscultation Cardiovascular: RRR, no murmur, no edema Gastrointestinal (Abdomen): normal bowel sounds, soft, nontender, no hepatosplenomegaly Musculoskeletal: no cyanosis or clubbing, extremities motor strength 5/5 Skin: very mild jaundice + scaly rash of psoriasis. Neurologic: PERRL, EOMI, accommodation nl, no face palsy, no dysarthria no asterixes Psychiatric: A+Ox3, euthymic affect Lymphatic: no cervical or axillary lymphadenopathy Results & Data Vital Signs (Past 12 Hours) Vital Signs Temp Pulse Pulse Resp BP BP Pulse Ox 03/08/23 08:00 52 L 03/08/23 08:39 36.5 C 54 L 18 116/56 L 96 03/08/23 04:14 36.6 C 54 L 18 113/56 L 96 O2 Del Method 03/08/23 08:00 03/08/23 08:39 Room Air 03/08/23 04:14 Room Air Laboratory Results WBC 2.6, Hb 8.0, Hct 24.2, Plts 66, PT 12.4, INR 1.2, Na 142, K 3.9, Cl 117, CO2 21, BUN 23, Cr 1.07. Diagnostic Findings CXR: no acute changes
[2023-03-08 12:07] LABS: Adenovirus F 40/41 PCR Not Detected (NotDetected); Astrovirus PCR Not Detected (NotDetected); Campylobacter PCR Not Detected (NotDetected); Cryptosporidium PCR Not Detected (NotDetected); Cyclospora cayetanensis PCR Not Detected (NotDetected); Entamoeba histolytica PCR Not Detected (NotDetected); Enteroaggregative E.coli(EAEC) Not Detected (NotDetected); Enteropathogenic E.coli (EPEC) Not Detected (NotDetected); Enterotoxigenic E.coli (ETEC) Not Detected (NotDetected); Giardia lamblia PCR Not Detected (NotDetected); Plesiomonas shigelloides PCR Not Detected (NotDetected); Rotavirus A PCR Not Detected (NotDetected); Salmonella PCR Not Detected (NotDetected); Sapovirus PCR Not Detected (NotDetected); Shiga-like Toxin E.coli (STEC) Not Detected (NotDetected); Shigella/Enteroinvasive E.coli Not Detected (NotDetected); Vibrio cholerae PCR Not Detected (NotDetected); Vibrio species PCR Not Detected (NotDetected); Yersinia enterocolitica PCR Not Detected (NotDetected)
[2023-03-08 12:33] LABS: Norovirus GI/GII PCR DETECTED (NotDetected)
--- NOTE | 2023-03-08 14:38 | Hospitalist Progress Note ---
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: (3) Hyperammonemia: (4) Esophageal varices: (5) GAVE (gastric antral vascular ectasia): (6) T2DM (type 2 diabetes mellitus): (7) GERD (gastroesophageal reflux disease): (8) CKD (chronic kidney disease) stage 3, GFR 30-59 ml/min: Plan Patient is a 72 yr male with H/O 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, hepatocellular carcinoma status post IR embolization, portal vein thrombus as per records, DM2 insulin requiring, chronic pancytopenia (baseline hemoglobin 9), H/O GAVE/esophageal varices/portal hypertensive gastropathy/radiation proctitis/diverticulosis on endoscopy, pulmonary hypertension, BPH, prostate cancer status post radiation, left renal mass and other medical problems listed below who presents with blood in bowel movement. Lower GI bleeding Acute on chronic blood loss anemia H/O GAVE, esophageal varices, portal hypertensive gastropathy, diverticulosis, radiation proctitis --CT ABD:Cirrhotic liver with splenomegaly and a small amount of ascites. This is similar to the prior study. The TIPS appears patent. 3. Possible 2.5 cm lesion within the left hepatic dome versus an area of focal fat. Follow-up dedicated liver MRI recommended for further evaluation. A 1.5 cm lesion within the left kidney which does not represent a simple cyst. Dedicated renal MRI recommended for further evaluation and to exclude the possibility solid renal mass. Extensive colonic diverticulosis. No evidence for acute diverticulitis. Chronic gastric wall thickening versus underdistention. Bladder wall thickening which may be due to chronic outlet obstruction from the enlarged prostate gland. --Continue IV Protonix Monitor H&H and transfuse as needed GI consulted Advance diet as tolerated Needs follow-up with GI upon discharge Avoid anticoagulation Norovirus Infection-POA Stool Studies positive for Norovirus CT abd as above Conservative management IV fluids as needed Monitor Hematuria Left renal mass CT as above Hematuria thought to be secondary to radiation cystitis No urological intervention recommended by urology Appreciate urology input Left renal mass was thought to be unchanged from prior studies for many years. Needs follow-up with Dr. 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 Liver Mass H/O medication noncompliance S/P TIPS revision at [facility] recently H/O Hepatocellular carcinoma S/P IR embolization/portal vein thrombus as per records Avoid hepatotoxic agents as able Appreciate GI input Continue rifaximin, lactulose Resume home diuretics as able Needs further evaluation of possible 2.5 cm lesion within left hepatic dome as outpatient with liver MRI CKD III Baseline creatinine Monitor renal function Pancytopenia Secondary to liver disease INR 1.2 Monitor platelets DM II HbA1C 7.8 Hold home agents SSI while in-patient BSG AC HS Prostate cancer S/P radiation, Eligard Left renal mass on outpatient imaging Follows with [facility] urologist DVT Px: SCDs Re:GI bleed, thrombocytopenia Code status: FULL CODE Admission and Anticipated Discharge Date Admission Date: March 07, 2023 Subjective Patient is seen and examined at bedside Denies any bleeding per rectum overnight, this morning Stool studies positive for norovirus, positive fecal occult Denies any nausea, vomiting, abdominal pain, chest pain, dyspnea No other complaints Review of Systems Review of Systems: All systems reviewed & are unremarkable except as noted in Subjective Physical Exam Physical Exam: Physical Exam: Vitals signs as noted above General Appearance:Moderately built and nourished, Chronic ill appearing, no apparent distress Head: normocephalic, Atraumatic Eyes: normal inspection, EOMI Neck: supple, Trachea midline Respiratory/Chest: Normal breath sounds, CTA, No accessory muscle use Cardiovascular: S1, S2, + murmur Abdomen/GI:Soft, Non tender, Bowel sounds present Extremities/Musculoskeletal:normal inspection, 1-2+ edema Neurologic/Psych:AAOX3, grossly no focal neurological deficits Skin: normal color, warm,+ psoriasis Results & Data Results & Data Vital Signs (Past 12 Hours) Vital Signs Temp Pulse Pulse Resp BP BP Pulse Ox 03/08/23 12:33 36.3 C L 50 L 17 124/65 100 03/08/23 08:00 52 L 03/08/23 08:39 36.5 C 54 L 18 116/56 L 96 03/08/23 04:14 36.6 C 54 L 18 113/56 L 96 O2 Del Method 03/08/23 12:33 Room Air 03/08/23 08:00 03/08/23 08:39 Room Air 03/08/23 04:14 Room Air Laboratory Results Short CBC 03/07/23 03/08/23 Range/Units 18:59 05:54 WBC 2.65 L (4.8-10.8) K/ul Hgb 7.6 L 8.0 L (14.0-18.0) g/dl Hct 24.0 L 24.2 L (42.0-52.0) % Plt Count 66 L (130-400) K/uL BMP 03/08/23 05:54 Sodium 142 Potassium 3.9 Chloride 117 H Carbon Dioxide 21 BUN 23 Creatinine 1.07 Glucose 99 Calcium 7.9 L Liver Function 03/08/23 Range/Units 05:54 Total Bilirubin 3.2 H (0.2-1.0) mg/dl AST 36 (13-39) U/L ALT 20 (7-52) U/L Alkaline Phosphatase 140 H (34-104) U/L Albumin 2.6 L (3.4-5.0) gm/dl (1) GI (gastrointestinal bleed) GI bleed type/associated pathology: anorectal hemorrhage Qualified Code(s): K62.5 - Hemorrhage of anus and rectum (7) GERD (gastroesophageal reflux disease) Esophagitis presence: esophagitis presence not specified Qualified Code(s): K21.9 - Gastro-esophageal reflux disease without esophagitis
[2023-03-08] MEDS: MIRTAZAPINE TAB 15 MG TAB PO SCH (20:08)
[2023-03-09 06:27] LABS: Hematocrit (blood only) 24.2 % (42.0-52.0); Hemoglobin 7.9 g/dl (14.0-18.0); Mean Corpuscular Hemoglobin 31.1 pg (25.0-34.0); Mean Corpuscular Hgb Conc 32.6 g/dL (32.0-36.0); Mean Corpuscular Volume 95.3 fL (80.0-100.0); Mean Platelet Volume 10.5 fL (9.4-12.4); Platelet Count 59 K/uL (130-400); RDW Coefficient of Variation 19.5 % (11.5-14.5); RDW Standard Deviation 68.4 fL (36.4-46.3); Red Blood Count 2.54 M/uL (4.70-6.10); White Blood Count 2.81 K/ul (4.8-10.8)
[2023-03-09 06:46] LABS: Albumin Globulin Ratio 0.9 (0.9-2); Albumin Level 2.7 gm/dl (3.4-5.0); BUN Creatinine Ratio 20.9 (10-20); Bilirubin,Total 3.1 mg/dl (0.2-1.0); Calcium 7.7 mg/dl (8.6-10.3); Est GFR (African American) 73.3 ml/min; Est GFR (Non-African American) 63.2 ml/min; Potassium 4.2 mmol/L (3.5-5.1); Total Protein 5.7 gm/dl (6.0-8.3)
[2023-03-09] MEDS: allopurinoL 100 MG TAB PO SCH ×2 (07:59→20:48)
[2023-03-09] MEDS: rifAXIMin 550 MG TABLET PO SCH ×2 (07:59→20:47)
[2023-03-09] MEDS: FINASTERIDE 5 MG TAB PO SCH (07:59)
[2023-03-09] MEDS: CEROVITE ADV FORMULA TAB PO SCH (08:00)
[2023-03-09] MEDS: LACTULOSE SYRUP 20 GM/30 ML UDC PO SCH ×3 (08:00→20:47)
[2023-03-09] MEDS: CITALOPRAM 20 MG TAB PO SCH (08:00)
[2023-03-09] MEDS: PANTOprazole 40 MG in SYRINGE 0 ML IV SCH ×2 (08:06→20:48)
[2023-03-09] MEDS: INSULIN ASPART PER UNIT CHARGE SC SCH ×4 (08:10→21:03)
[2023-03-09] MEDS: LANTUS PER UNIT CHARGE SQ SCH ×2 (08:44→21:02)
--- NOTE | 2023-03-09 15:45 | Hospitalist Progress Note ---
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: (3) Hyperammonemia: (4) Esophageal varices: (5) GAVE (gastric antral vascular ectasia): (6) T2DM (type 2 diabetes mellitus): (7) GERD (gastroesophageal reflux disease): (8) CKD (chronic kidney disease) stage 3, GFR 30-59 ml/min: Plan Patient is a 72 yr male with H/O 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, hepatocellular carcinoma status post IR embolization, portal vein thrombus as per records, DM2 insulin requiring, chronic pancytopenia (baseline hemoglobin 9), H/O GAVE/esophageal varices/portal hypertensive gastropathy/radiation proctitis/diverticulosis on endoscopy, pulmonary hypertension, BPH, prostate cancer status post radiation, left renal mass and other medical problems listed below who presents with blood in bowel movement. Lower GI bleeding Acute on chronic blood loss anemia H/O GAVE, esophageal varices, portal hypertensive gastropathy, diverticulosis, radiation proctitis --CT ABD:Cirrhotic liver with splenomegaly and a small amount of ascites. This is similar to the prior study. The TIPS appears patent. 3. Possible 2.5 cm lesion within the left hepatic dome versus an area of focal fat. Follow-up dedicated liver MRI recommended for further evaluation. A 1.5 cm lesion within the left kidney which does not represent a simple cyst. Dedicated renal MRI recommended for further evaluation and to exclude the possibility solid renal mass. Extensive colonic diverticulosis. No evidence for acute diverticulitis. Chronic gastric wall thickening versus underdistention. Bladder wall thickening which may be due to chronic outlet obstruction from the enlarged prostate gland. 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 Needs follow-up with Dr. 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 Liver Mass H/O medication noncompliance S/P TIPS revision at [facility] recently H/O Hepatocellular carcinoma S/P IR embolization/portal vein thrombus as per records Avoid hepatotoxic agents as able Appreciate GI input Continue rifaximin, lactulose Resume home diuretics as able Needs further evaluation of possible 2.5 cm lesion within left hepatic dome as outpatient with liver MRI Titrate lactulose to have 3-4 good bowel movements per day CKD III Baseline creatinine Monitor renal function Pancytopenia Secondary to liver disease INR 1.2 Monitor platelets DM II HbA1C 7.8 Hold home agents SSI while in-patient BSG AC HS Prostate cancer S/P radiation, Eligard Left renal mass on outpatient imaging Follows with [facility] urologist DVT Px: SCDs Re:GI bleed, thrombocytopenia Code status: FULL CODE Disposition Likely discharge home tomorrow if stable Admission and Anticipated Discharge Date Admission Date: March 07, 2023 Subjective Patient is seen and examined at bedside States feeling better today Patient denies any bleeding in stools Also denies any nausea, vomiting, abdominal pain Had only 2 BMs per patient yesterday Denies any nausea, vomiting, abdominal pain, chest pain, dyspnea Review of Systems Review of Systems: All systems reviewed & are unremarkable except as noted in Subjective Physical Exam Physical Exam: Physical Exam: Vitals signs as noted above General Appearance:Moderately built and nourished, Chronic ill appearing, no apparent distress Head: normocephalic, Atraumatic Eyes: normal inspection, EOMI Neck: supple, Trachea midline Respiratory/Chest: Normal breath sounds, CTA, No accessory muscle use Cardiovascular: S1, S2, + murmur Abdomen/GI:Soft, Non tender, Bowel sounds present Extremities/Musculoskeletal:normal inspection, 1-2+ edema Neurologic/Psych:AAOX3, grossly no focal neurological deficits Skin: normal color, warm,+ psoriasis Results & Data Results & Data Vital Signs (Past 12 Hours) Vital Signs Temp Pulse Pulse Resp BP BP Pulse Ox 03/09/23 15:19 63 03/09/23 11:30 36.7 C 64 18 117/60 97 03/09/23 08:00 56 L 03/09/23 07:54 36.6 C 60 18 118/52 L 99 O2 Del Method 03/09/23 15:19 03/09/23 11:30 Room Air 03/09/23 08:00 03/09/23 07:54 Room Air Laboratory Results Short CBC 03/09/23 Range/Units 05:59 WBC 2.81 L (4.8-10.8) K/ul Hgb 7.9 L (14.0-18.0) g/dl Hct 24.2 L (42.0-52.0) % Plt Count 59 L (130-400) K/uL BMP 03/09/23 05:59 Sodium 142 Potassium 4.2 Chloride 117 H Carbon Dioxide 21 BUN 24 H Creatinine 1.15 Glucose 113 H Calcium 7.7 L Liver Function 03/09/23 Range/Units 05:59 Total Bilirubin 3.1 H (0.2-1.0) mg/dl AST 42 H (13-39) U/L ALT 21 (7-52) U/L Alkaline Phosphatase 156 H (34-104) U/L Albumin 2.7 L (3.4-5.0) gm/dl (1) GI (gastrointestinal bleed) GI bleed type/associated pathology: anorectal hemorrhage Qualified Code(s): K62.5 - Hemorrhage of anus and rectum (7) GERD (gastroesophageal reflux disease) Esophagitis presence: esophagitis presence not specified Qualified Code(s): K21.9 - Gastro-esophageal reflux disease without esophagitis
[2023-03-09] MEDS: MIRTAZAPINE TAB 15 MG TAB PO SCH (20:48)
[2023-03-10 02:52] VITALS: TEMP 98.6
[2023-03-10 07:00] LABS: Hematocrit (blood only) 24.6 % (42.0-52.0); Platelet Count 75 K/uL (130-400)
[2023-03-10 07:36] VITALS: O2SAT 97
[2023-03-10] MEDS: FINASTERIDE 5 MG TAB PO SCH (08:17)
[2023-03-10] MEDS: allopurinoL 100 MG TAB PO SCH (08:17)
[2023-03-10] MEDS: CEROVITE ADV FORMULA TAB PO SCH (08:17)
[2023-03-10] MEDS: LACTULOSE SYRUP 20 GM/30 ML UDC PO SCH (08:17)
[2023-03-10] MEDS: CITALOPRAM 20 MG TAB PO SCH (08:17)
[2023-03-10] MEDS: rifAXIMin 550 MG TABLET PO SCH (08:17)
[2023-03-10] MEDS: INSULIN ASPART PER UNIT CHARGE SC SCH ×2 (08:19→12:08)
[2023-03-10] MEDS: LANTUS PER UNIT CHARGE SQ SCH (08:25)
[2023-03-10] MEDS: PANTOprazole 40 MG in SYRINGE 0 ML IV SCH (08:25)
--- NOTE | 2023-03-10 12:14 | Hospitalist Progress Note ---
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 Lower GI bleeding Acute on chronic blood loss anemia H/O GAVE, esophageal varices, portal hypertensive gastropathy, diverticulosis, radiation proctitis --CT ABD:Cirrhotic liver with splenomegaly and a small amount of ascites. This is similar to the prior study. The TIPS appears patent. 3. Possible 2.5 cm lesion within the left hepatic dome versus an area of focal fat. Follow-up dedicated liver MRI recommended for further evaluation. A 1.5 cm lesion within the left kidney which does not represent a simple cyst. Dedicated renal MRI recommended for further evaluation and to exclude the possibility solid renal mass. Extensive colonic diverticulosis. No evidence for acute diverticulitis. Chronic gastric wall thickening versus underdistention. Bladder wall thickening which may be due to chronic outlet obstruction from the enlarged prostate gland. 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 Needs follow-up with Dr. 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 Liver Mass H/O medication noncompliance S/P TIPS revision at [facility] recently H/O Hepatocellular carcinoma S/P IR embolization/portal vein thrombus as per records Avoid hepatotoxic agents as able Appreciate GI input Continue rifaximin, lactulose Resume home diuretics Needs further evaluation of possible 2.5 cm lesion within left hepatic dome as outpatient with liver MRI Titrate lactulose to have 3-4 good bowel movements per day CKD III Baseline creatinine Monitor renal function Pancytopenia Secondary to liver disease INR 1.2 Monitor platelets DM II HbA1C 7.8 Hold home agents SSI while in-patient BSG AC HS Prostate cancer S/P radiation, Eligard Left renal mass on outpatient imaging Follows with [facility] urologist DVT Px: SCDs Re:GI bleed, thrombocytopenia Code status: FULL CODE Disposition Home Admission and Anticipated Discharge Date Admission Date: March 07, 2023 Subjective Patient is seen and examined at bedside No new complaints Hb stable Had 1 BM today Denies any nausea, vomiting, abdominal pain, chest pain, dyspnea Prefers to be discharged home today Review of Systems Review of Systems: All systems reviewed & are unremarkable except as noted in Subjective Physical Exam Physical Exam: Physical Exam: Vitals signs as noted above General Appearance:Moderately built and nourished, Chronic ill appearing, no apparent distress Head: normocephalic, Atraumatic Eyes: normal inspection, EOMI Neck: supple, Trachea midline Respiratory/Chest: Normal breath sounds, CTA, No accessory muscle use Cardiovascular: S1, S2, + murmur Abdomen/GI:Soft, Non tender, Bowel sounds present Extremities/Musculoskeletal:normal inspection, 1-2+ edema Neurologic/Psych:AAOX3, grossly no focal neurological deficits Skin: normal color, warm,+ psoriasis Results & Data Results & Data Vital Signs (Past 12 Hours) Vital Signs Temp Pulse Pulse Resp BP Pulse Ox O2 Del Method 03/10/23 11:24 37.0 C 67 18 147/77 H 97 Room Air 03/10/23 08:00 64 03/10/23 07:35 37.0 C 62 18 139/58 L 97 Room Air 03/10/23 02:50 37.0 C 72 18 136/67 95 Room Air Laboratory Results Short CBC 03/10/23 Range/Units 06:01 Hgb 8.0 L (14.0-18.0) g/dl Hct 24.6 L (42.0-52.0) % Plt Count 75 L (130-400) K/uL (1) GI (gastrointestinal bleed) GI bleed type/associated pathology: anorectal hemorrhage Qualified Code(s): K62.5 - Hemorrhage of anus and rectum (7) GERD (gastroesophageal reflux disease) Esophagitis presence: esophagitis presence not specified Qualified Code(s): K21.9 - Gastro-esophageal reflux disease without esophagitis
--- NOTE | 2023-03-10 12:26 | Discharge Summary ---
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 Was recently admitted from for hepatic encephalopathy and was noted to have acute lower GI bleed at that time likely secondary to hemorrhoids, radiation proctitis and severe sigmoid diverticulosis. No plan for repeat endoscopy at that time per GI. Hemoglobin was stable at time of discharge at baseline of 9.3. Since discharge home, patient was feeling well until 2 days ago, when he started to note bright red blood mixed in the bowel movements in the toilet bowl was pink. Thinks he also has some blood in his urine. Endorses proximately 8 bowel movements with blood mixed in in the past 2 days as well as once in the ED since arrival. Denies any fever, chills, lightheadedness, dizziness, chest pain, shortness of breath, nausea, vomiting , abdominal pain, dysuria. Had hospital follow-up with Dr. Herbert in clinic yesterday. Lasix and spironolactone were stopped during previous hospitalization due to dehydration but was directed by PCP to resume Lasix at a lower dose. Also planning to start Kristalose packets BID. Admission Exam Per Admitting Provider General Appearance:WD/WN, vitals as above, NAD, sitting up in bed, pleasant, conversing easily Head: normocephalic, atraumatic Eyes:normal inspection, PERRL, conjunctivae normal, +icteric sclerae ENT: external ear and nose normal, oropharynx normal Neck: normal visual inspection, trachea midline, no thyromegaly Respiratory:normal respiratory effort, lungs clear to auscultation, no wheeze, rales, rhonchi. No accessory muscle use Cardiovascular: regular rate, rhythm, + systolic murmur, normal peripheral pulses, no BLE edema. Vessels: no JVD Chest: normal inspection of chest Abdomen/GI: normal bowel sounds, soft, nontender, no hepatosplenomegaly Extremities/Musculoskeletal: no cyanosis or clubbing, extremities motor strength 5/5 Neurologic: PERRL, EOMI, accommodation nl, no face palsy, no dysarthria, CN's II-XI intact bilaterally and moves all extremities Psychiatric:A+Ox4, euthymic affect Skin: no rashes, jaundice, warm/dry Principal Diagnosis Lower GI bleeding Acute on chronic blood loss anemia Norovirus Infection Left Kidney mass Left liver lesion Pancytopenia Discharge Data Allergies Allergy/AdvReac Type Severity Reaction Status Date / Time No Known Allergies Allergy Mild Verified 02/24/23 22:30 Consultations 03/07/23 14:18 ED Decision to Admit Stat 03/07/23 15:35 Consult Gastroenterology Routine Consult Urology Routine Procedures Performed Laboratory Results WBC 2.81 K/ul (4.8-10.8) L 03/09/23 05:59 RBC 2.54 M/uL (4.70-6.10) L 03/09/23 05:59 Hgb 8.0 g/dl (14.0-18.0) L 03/10/23 06:01 Hct 24.6 % (42.0-52.0) L 03/10/23 06:01 MCV 95.3 fL (80.0-100.0) 03/09/23 05:59 MCH 31.1 pg (25.0-34.0) 03/09/23 05:59 MCHC 32.6 g/dL (32.0-36.0) 03/09/23 05:59 RDW Std Deviation 68.4 fL (36.4-46.3) H 03/09/23 05:59 RDW Coeff of Violetta 19.5 % (11.5-14.5) H 03/09/23 05:59 Plt Count 75 K/uL (130-400) L 03/10/23 06:01 MPV 10.5 fL (9.4-12.4) 03/09/23 05:59 Immature Gran % (Auto) 0.3 % 03/07/23 11:26 Neut % (Auto) 63.0 % 03/07/23 11:26 Lymph % (Auto) 20.9 % 03/07/23 11:26 [place] % (Auto) 6.5 % 03/07/23 11:26 Eos % (Auto) 8.6 % 03/07/23 11:26 Baso % (Auto) 0.7 % 03/07/23 11:26 Neut # (Auto) 1.84 K/uL (1.40-6.50) 03/07/23 11:26 Lymph # (Auto) 0.61 K/uL (1.2-3.4) L 03/07/23 11:26 [place] # (Auto) 0.19 K/uL (0.11-0.59) 03/07/23 11:26 Eos # (Auto) 0.25 K/uL (0-0.50) 03/07/23 11:26 Baso # (Auto) 0.02 K/uL (0-0.2) 03/07/23 11:26 Immature Gran # (Auto) 0.01 K/uL (0.01-0.20) 03/07/23 11:26 Polychromasia 1+ 03/07/23 11:26 Anisocytosis Present 03/07/23 11:26 Tear Drop Cells 2+ 03/07/23 11:26 Ovalocytes 1+ 03/07/23 11:26 PT 12.4 Seconds (9.0-12.0) H 03/07/23 11:26 INR 1.2 (0.9-1.1) H 03/07/23 11:26 APTT 30.3 Seconds (21.0-31.0) 03/07/23 11:26 PTT Ratio 1.1 03/07/23 11:26 Sodium 142 mmol/L (136-145) 03/09/23 05:59 Potassium 4.2 mmol/L (3.5-5.1) 03/09/23 05:59 Chloride 117 mmol/L (98-107) H 03/09/23 05:59 Carbon Dioxide 21 mmol/L (21-32) 03/09/23 05:59 Anion Gap 4 (3-11) 03/09/23 05:59 BUN 24 mg/dl (6-23) H 03/09/23 05:59 Creatinine 1.15 mg/dl (0.6-1.4) 03/09/23 05:59 Est Cr Clr Drug Dosing 60.0 ml/min 03/09/23 05:59 Est GFR ( Amer) 73.3 ml/min 03/09/23 05:59 Est GFR (Non-Af Amer) 63.2 ml/min 03/09/23 05:59 BUN/Creatinine Ratio 20.9 (10-20) H 03/09/23 05:59 Glucose 113 mg/dl (70-99(Fasting)) H 03/09/23 05:59 POC Glucose 234 mg/dl (70-99) H 03/10/23 11:26 Calcium 7.7 mg/dl (8.6-10.3) L 03/09/23 05:59 Magnesium 1.7 mg/dl (1.7-2.4) 03/07/23 11:26 Total Bilirubin 3.1 mg/dl (0.2-1.0) H 03/09/23 05:59 AST 42 U/L (13-39) H 03/09/23 05:59 ALT 21 U/L (7-52) 03/09/23 05:59 Alkaline Phosphatase 156 U/L (34-104) H 03/09/23 05:59 Ammonia 104.0 umol/L (18-72) H 03/07/23 12:17 Troponin I High Sens 6.7 pg/ml (0-20) 03/07/23 11:26 Total Protein 5.7 gm/dl (6.0-8.3) L 03/09/23 05:59 Albumin 2.7 gm/dl (3.4-5.0) L 03/09/23 05:59 Globulin 3.0 gm/dl (2.5-4.0) 03/09/23 05:59 Albumin/Globulin Ratio 0.9 (0.9-2) 03/09/23 05:59 Urine Color Dark Yellow 03/07/23 12:16 Urine Appearance Clear (Clear) 03/07/23 12:16 Urine pH 5.0 (4.5-7.5) 03/07/23 12:16 Ur Specific [place] 1.020 (1.000-1.030) 03/07/23 12:16 Urine Protein Negative (Negative) 03/07/23 12:16 Urine Glucose (UA) Negative (Negative) 03/07/23 12:16 Urine Ketones Negative (Negative) 03/07/23 12:16 Urine Blood 3+ (Negative) H 03/07/23 12:16 Urine Nitrite Negative (Negative) 03/07/23 12:16 Urine Bilirubin Negative (Negative) 03/07/23 12:16 Urine Urobilinogen Negative (Negative) 03/07/23 12:16 Ur Leukocyte Esterase Negative (Negative) 03/07/23 12:16 Urine WBC (Auto) 1-5 /hpf (0-5) 03/07/23 12:16 Urine RBC (Auto) >30 /hpf (0-4) H 03/07/23 12:16 U Hyaline Cast (Auto) 1-5 /lpf (0-5) 03/07/23 12:16 U Epithel Cells (Auto) 0-5 /lpf (0-5) 03/07/23 12:16 Urine Bacteria (Auto) Negative (Negative) 03/07/23 12:16 Stool Occult Bld Scrn Positive (Negative) A 03/08/23 Unknown Stl C. cayetanensis PCR Not Detected (NotDetected) 03/08/23 Unknown Stool Rotavirus A PCR Not Detected (NotDetected) 03/08/23 Unknown Stl Adenov F 40/41 PCR Not Detected (NotDetected) 03/08/23 Unknown Stool Astrovirus (PCR) Not Detected (NotDetected) 03/08/23 Unknown Stool Campylobacter PCR Not Detected (NotDetected) 03/08/23 Unknown Stl C. diff Tox B Gene Negative Cdiff Gene (Neg) 03/08/23 Unknown Stool Cryptosporidium PCR Not Detected (NotDetected) 03/08/23 Unknown Stl E.coli Shiga Tox PCR Not Detected (NotDetected) 03/08/23 Unknown Stl Enterotoxigenic E PCR Not Detected (NotDetected) 03/08/23 Unknown Stool EPEC (PCR) Not Detected (NotDetected) 03/08/23 Unknown Stool EAEC (PCR) Not Detected (NotDetected) 03/08/23 Unknown Stl E. histolytica PCR Not Detected (NotDetected) 03/08/23 Unknown Stool Giardia Lamblia PCR Not Detected (NotDetected) 03/08/23 Unknown Stool Salmonella PCR Not Detected (NotDetected) 03/08/23 Unknown Stool Sapovirus (PCR) Not Detected (NotDetected) 03/08/23 Unknown Stl P. shigelloides PCR Not Detected (NotDetected) 03/08/23 Unknown Stl Shigella/EIEC PCR Not Detected (NotDetected) 03/08/[address].enterocolitica PCR Not Detected (NotDetected) 03/08/23 Unknown Stool Vibrio (PCR) Not Detected (NotDetected) 03/08/23 Unknown Stl Vibrio cholerae PCR Not Detected (NotDetected) 03/08/23 Unknown Stl Norovirus GI/GII PCR DETECTED (NotDetected) A* 03/08/23 Unknown SARS-CoV-2, RNA, NAAT NEGATIVE (NEGATIVE) 03/07/23 11:49 Blood Type O Positive 03/07/23 12:17 Antibody Screen NEGATIVE 03/07/23 12:17 Crossmatch See Detail 03/07/23 12:17 Impressions Abdomen/Pelvis CT 03/07/23 11:[address] WITH IV CONTRAST CT DOSE: 547.46 mGy.cm HISTORY: GI bleed. Generalized abdominal pain. TECHNIQUE: Multiaxial CT images of the abdomen and pelvis were performed following the use of intravenous contrast. A dose lowering technique was utilized adhering to the principles of ALARA. COMPARISON STUDY: Abdomen and pelvis CT 02/25/2023. FINDINGS: Mild dependent changes seen at the lung bases. No pneumoperitoneum. No pneumatosis. There is an old mild superior endplate compression deformity at L1 again noted. No acute fractures identified. Mild bilateral gynecomastia. Small amount of ascites with mesenteric and omental edema again noted. This is similar to the prior study. Small fat-containing bilateral inguinal hernias again noted. Gastric wall thickening, unchanged. This may be due to underdistention. O therwise, no bowel wall thickening or obstruction. Normal appendix. Extensive colonic diverticulosis. No evidence for acute diverticulitis. Mild bladder wall thickening, unchanged. This is likely due to chronic outlet obstruction from the mildly enlarged prostate gland. No pelvic lymphadenopathy. Prominent periportal lymph nodes remain unchanged. The main portal vein is patent. The portal veins distal to the TIPS within the posterior segment of the right hepatic lobe appear occluded which is likely due to the TIPS. Nodular contour to the liver consistent with cirrhosis. The TIPS remains patent. The main portal vein is also patent. Cholelithiasis. The gallbladder is contracted. Possible 2.5 cm lesion within the left hepatic dome. The spleen remains enlarged measuring 16 cm in length. Stable 2 cm cystic lesion within the pancreatic head/neck. No hydronephrosis. A few subcentimeter hypodensities within the kidneys are too small to characterize but favor cysts. There is a 1.5 cm intermediate density lesion within the left mid kidney on image 201. This may demonstrate enhancement and is therefore concerning for a solid renal mass such as a renal cell carcinoma. IMPRESSION: 1. Cirrhotic liver with splenomegaly and a small amount of ascites. This is similar to the prior study. 2. The TIPS appears patent. 3. Possible 2.5 cm lesion within the left hepatic dome versus an area of focal fat. Follow-up dedicated liver MRI recommended for further evaluation. 4. A 1.5 cm lesion within the left kidney which does not represent a simple cyst. Dedicated renal MRI recommended for further evaluation and to exclude the possibility solid renal mass. 5. Extensive colonic diverticulosis. No evidence for acute diverticulitis. 6. Chronic gastric wall thickening versus underdistention. 7. Bladder wall thickening which may be due to chronic outlet obstruction from the enlarged prostate gland. Recommend correlation with urinalysis. 8. Additional findings as described above. ACT 112: Negative or not required by law. Electronically signed by: Abdoul Gonzalez M.D. 03/07/2023 1:42 PM Chest X-Ray 03/07/23 15:38 XR chest 1V portable CLINICAL HISTORY: admission TECHNIQUE: Single frontal radiograph of the chest was obtained. Comparison: Comparison is made to chest radiograph 02/24/2023 FINDINGS: No lines and tubes are seen. Cardiomegaly is noted. The lungs are clear. No evidence of pleural effusion or pneumothorax. IMPRESSION: No acute chest disease. ACT 112: Negative or not required by law. Electronically signed by: Arik Flowers M.D. 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 Lower GI bleeding Acute on chronic blood loss anemia H/O GAVE, esophageal varices, portal hypertensive gastropathy, diverticulosis, radiation proctitis --CT ABD:Cirrhotic liver with splenomegaly and a small amount of ascites. This is similar to the prior study. The TIPS appears patent. 3. Possible 2.5 cm lesion within the left hepatic dome versus an area of focal fat. Follow-up dedicated liver MRI recommended for further evaluation. A 1.5 cm lesion within the left kidney which does not represent a simple cyst. Dedicated renal MRI recommended for further evaluation and to exclude the possibility solid renal mass. Extensive colonic diverticulosis. No evidence for acute diverticulitis. Chronic gastric wall thickening versus underdistention. Bladder wall thickening which may be due to chronic outlet obstruction from the enlarged prostate gland. 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 Needs follow-up with Dr. 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 Liver Mass H/O medication noncompliance S/P TIPS revision at [facility] recently H/O Hepatocellular carcinoma S/P IR embolization/portal vein thrombus as per records Avoid hepatotoxic agents as able Appreciate GI input Continue rifaximin, lactulose Resume home diuretics Needs further evaluation of possible 2.5 cm lesion within left hepatic dome as outpatient with liver MRI Titrate lactulose to have 3-4 good bowel movements per day CKD III Baseline creatinine Monitor renal function Pancytopenia Secondary to liver disease INR 1.2 Monitor platelets DM II HbA1C 7.8 Hold home agents SSI while in-patient BSG AC HS Prostate cancer S/P radiation, Lien Left renal mass on outpatient imaging Follows with [facility] urologist DVT Px: SCDs Re:GI bleed, thrombocytopenia Code status: FULL CODE Disposition Home Total Time Total Time Spent Total Time Spent (In Minutes): 56 minutes Discharge Plan Discharge Items Patient Disposition: Home - Self-Care Reason For Visit: GI BLEED Discharge Diagnosis: Lower GI bleeding Acute on chronic blood loss anemia Norovirus Infection Left Kidney mass Left liver lesion Pancytopenia Condition on Discharge: Fair Activity: Per Instructions section Exercise/Sports: Wait until after follow-up appointment Non-emergency contact: Primary Care Provider, Line Staker and Urologist Call non-emergency contact if: you have any medication questions, your symptoms worsen, your pain is concerning for you and you have a fever Follow-up/Referrals: Francisco Cisse MD [Primary Care Provider] - Diet: Carb Consistent or DM2 Addtl Attending Provider Instructions: Follow-up with your primary care physician in 1 week--please call for appointment Follow-up with your loft worker Dr. Duncan for outpatient endoscopy (EGD) and further work-up on liver lesion with possible liver MRI as outpatient. Follow-up with your urologist Dr. Peraza for further evaluation of left kidney mass as advised in 3-4 weeks --Titrate your Lactulose daily as recommended to have 3-4 good bowel movements per day Obtain Blood test (complete blood count) in 1 week and follow up with your physician for evaluation of your hemoglobin, platelet count. Seek immediate medical attention if your symptoms reoccur or worsen Please take all medications as instructed on discharge list below. Please call if you have any questions or problems. You can reach a [facility] hospitalist on duty at [facility] 24 hours a day by calling [phone] Pending Studies at Discharge: No Stand-Alone Forms: [facility] Sm[facility] Cessation Medications and DC Order Prescriptions: Continued citalopram [Celexa] 10 mg tablet 10 mg PO QAM allopurinol 100 mg Tablet 100 mg PO BID Rx Instructions: PER [facility]--STILL TAKING, PER PT MED LIST--PRESCRIPTION 09/21/22 AND CAN NO LONGER BE REFILLED. LAST FILLED PER EXT MED HX--04/09/2022 FOR 90 DAYS/180 TABS. Xifaxan 550 mg tablet 550 mg PO BID Patient Comments: Part of the "FOFANA" regimen to remove impurities furosemide [Lasix] 20 mg Tablet 40 mg PO QAM triamcinolone acetonide 0.1 % cream 1 applic TOPICAL BID PRN (Reason: PSORIATIC LESIONS WHEN NEEDED) mirtazapine 30 mg tablet 30 mg PO HS acetaminophen [Tylenol] 325 mg Tablet 650 mg PO Q8H PRN (Reason: Pain) pantoprazole 40 mg tablet,delayed release (DR/EC) 40 mg PO BID 90 Days Qty: 180 0RF repaglinide 1 mg tablet 1 mg PO BID finasteride 5 mg Tablet 5 mg PO QAM insulin glargine [Lantus U-100 Insulin] 100 unit/mL solution 20 unit subcut HS multivitamin with iron Tablet 1 tab PO QAM Changed lactulose [Kristalose] 10 gram packet 10 g PO TID Qty: 15 0RF Discharge Orders: Discharge Order (Routine); Ordered 03/10/23 Ordered By: Tavo Paul Admission Data Admit Date/Time: 03/07/23 14:21 Attending Provider: Tavo Paul Admit Provider: Tavo Paul Primary Care Provider: Francisco Cisse Other Providers: Dangelo George ; Edis Price ; Raulito Rashid
[2023-03-10 12:38] VITALS: BP 117/60; PULSE 64
[2023-03-10] MEDS ORDERED: LACTULOSE SYRUP 10 GM/15 ML BTL 960 ML PO SCH (21:00)
[2023-03-10] MEDS ORDERED: PANTOprazole 40 MG TAB PO SCH (21:00)
== END 2023-03-10 14:58 | disposition home or self-care (01) | DRG 378 ==
LOC: ED 11:17 → 2E 14:21

== ENCOUNTER 2023-05-16 23:17 | Inpatient (IN) ==
[2023-05-16] MEDS ORDERED: SODIUM CHLORIDE 0.9% 1000ML 1,000 ML IV SCH (23:45)
--- NOTE | 2023-05-17 00:08 | Emergency Department Note ---
Impression & Plan AMS (altered mental status), Constipation, Nausea, Hypomagnesemia, Prolonged QT interval ED Provider Note ED Provider Note NAME: MERRITT TAPIA AGE:72 SEX: Male : 1950 ARRIVES VIA: Private vehicle INFORMANT: Son ED PROVIDER(s): Melody Almanza DO CHIEF COMPLAINT: Confusion, constipation, nausea HPI: This is a 72-year-old male presents emergency department with his son due to concern for worsening confusion, constipation and nausea. Son states patient has a history of liver problems as well as a prior TIPS procedure. He states he takes lactulose daily and has not missed any doses although he only takes it t wice daily. He states as result of lactulose his stools are usually loose and frequent. He states the beginning of the week he began complaining of nausea and they were prescribed Zofran. While the Zofran seems to help with the nausea he has now become more constipated. He states he is only having small uday of stool with attempts at toileting. He states he has had difficulty staying hydrated as a result of the nausea additionally. Son states no fevers or chills noted, he has not complained of any pain or discomfort. At bedside patient denies any pain to me. Son states he has become more unsteady and off balance, and had difficulty with simple tasks that the son recognizes is a result of a rising ammonia level. The son states he did have blood work done the beginning of the week which showed an ammonia in the 160s which the son states is not uncommon for him. PAST MEDICAL HISTORY:See Below PAST SURGICAL HISTORY:See Below FAMILY HISTORY:See Below SOCIAL HISTORY:See Below HOME MEDICATIONS:See Below ALLERGIES:See Below VITALS:See Below PHYSICAL EXAMINATION: GENERAL: somnolent but arousable, well nourished, no distress, non-toxic EYE EXAM: normal conjunctiva, PERRL and EOM's grossly intact, scleral icterus OROPHARYNX: no exudate, no erythema, lips, buccal mucosa, and tongue normal and mucous membranes are dry NECK: supple, no nuchal rigidity, no adenopathy, non-tender LUNGS: Clear to auscultation. Normal chest wall mechanics, no w/r/r HEART: no murmurs, S1 normal and S2 normal ABDOMEN: abdomen soft, non-tender, normo-active bowel sounds, no masses, no rebound or guarding. BACK: Back is symmetrical on inspection and there is no deformity, no midline tenderness, no CVA tenderness. SKIN: no rashes, petechiae, orbruising, jaundiced UPPER EXTREMITIES: upper extremities are grossly normal. FROM, nml pulses b/l. LOWER EXTREMITIES: No pitting edema. FROM, nml pulses b/l. NEURO EXAM: Recognize his son and knows where he is, confused to date, time, cranial nerves II-XII grossly intact, normal speech, no facial droop,nogross weakness of arms, no gross weakness of legs. Gross sensation intact. No ataxia. Vital Signs: reviewed and remarkable Differential Diagnosis: Viral syndrome, hepatic encephalopathy, electrolyte abnormality, UTI, dehydration, LUCRETIA, CVA, ICH, as well as others were considered MEDICAL DECISION MAKING: This is a 72-year-old male with a significant past medical history who presents with son at bedside due to concern for increased confusion, constipation, and nausea. Patient was afebrile and vital signs stable. Labs drawn and sent, IV established, EKG and x-rays performed at bedside interpreted by me and patient monitored on telemetry. X-rays reassuring, and similar compared to prior. CT of the head also performed and was negative for any acute pathology. Patient's ammonia is slightly improved compared to prior it is still elevated. Patient's creatinine is elevated compared to prior. Pancytopenia similar compared to prior. Total bilirubin is improved compared to prior. Patient noted also to have gross hematuria which was sent for urinalysis. Patient was previously noted to have gross hematuria and was seen by urology. Patient had no complaints of pain. I do not suspect SBP. Unclear if patient's symptoms secondary to dehydration and hepatic encephalopathy. Patient was noted to have hypomagnesemia additionally and this was repleted with IV mag while he was in the ER. I suspect this may have been the cause of the patient's prolonged QT. I suspect patient's constipation secondary to Zofran use. At this time I have no suspicion for occult infectious etiology. Case discussed with hospitalist for a dditional evaluation and management. Consultation(s): [] ER Treatment Provided: See below Diagnostics Interpreted By Me: -ECG: Sinus bradycardia at 57, normal QRS, prolonged QT, normal axis, no acute ST/T wave changes; prolonged QT new compared to prior EKG -Cardiac Monitoring: An order was placed for continuous cardiac monitoring. The monitor shows a rate of 59 with sinus bradycardia rhythm. -Laboratory studies: As stated above and show below. -Imaging studies: X-ray Chest: A single view study of the chest was reviewed and was negative for cardiomegaly, focal infiltrate, effusion, pulmonary edema, or wide mediastinum. Triage Nursing Note Reviewed Prior/Outside Records Reviewed Past Med/Surg History Medical History Anemia of chronic disease monthly labs done Anxiety and depression CKD (chronic kidney disease) stage 3, GFR 30-59 ml/min Esophageal varices hx Fatigue on exertion/liver issues have decreased strength GAVE (gastric antral vascular ectasia) pt not sure what this is GERD (gastroesophageal reflux disease) Gout NO ISSUES CURRENTLY History of panic attacks History of recent blood transfusion 11/05/22 Hypertension hx/sometimes will read a little low. Liver spots recent testing and no changes. Nonalcoholic steatohepatitis (FOFANA) Prostate cancer (11/10/20) hx radiation Psoriasis Rectal bleeding hx of T2DM (type 2 diabetes mellitus) Upper GI bleed hx of Surgical History History of abdominal paracentesis multiple--last 01/14/23 History of colonoscopy with polypectomy History of esophagogastroduodenoscopy (EGD) last 10/25 revealed grade 2 esophageal varices, grade 1 gastric varices STABLE History of left cataract surgery History of prostate biopsy malignant History of right cataract surgery History of tonsillectomy and adenoidectomy S/P TIPS (transjugular intrahepatic portosystemic shunt) Family History Father , "3/4 liver gone due to drinking" Colorectal cancer, Onset Age: 63 Mother Lung cancer Daughter Cancer cervical and thyroid cancers Ovarian cancer Other No family history of adverse response to anesthesia 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 Smoking Status: Never smoker Second Hand Exposure: No; Do You Dip or Chew Tobacco: No; Hx Alcohol Use: No Hx Substance Use: No Preferred Language: Malian Communication Ability: Effective Visual Impairment: No Limitations Hearing Ability: Normal Physician Chief Of Pathology Required: No Beliefs That Will Affect Care: None marital status: Current Living Situation: Spouse Current Living Situation Comment: is currently at [facility] 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 How many Children do You have: 6 How many Children do You have Comment: one , eldest daughter in her sleep from seizure disorder Feels Safe at Home: Yes Childhood Exposure to Second-Hand Smoke: Yes Diet Comment: "I watch my sugar, average fasting is 140 mg/dl" caffeine: Yes (cola, sugar free, decaf) during the past year weight has: remained stable Dental Care, Regularly: No Physical Activity Frequency: Does not Exercise Seatbelt Use: always Sunscreen Use: Yes Assistive Devices: Walker Allergies Allergies Allergy/AdvReac Type Severity Reaction Status Date / Time No Known Allergies Allergy Mild Verified 05/17/23 01:18 Home Meds Home Medications Medication Instructions Recorded Confirmed citalopram 10 mg tablet (Celexa) 10 mg PO QAM 03/24/20 05/17/23 allopurinol 100 mg tablet 200 mg PO DAILY 05/16/20 05/17/23 finasteride 5 mg tablet 5 mg PO QAM 11/03/21 05/17/23 furosemide 20 mg tablet (Lasix) 40 mg PO QAM 11/02/22 05/17/23 insulin glargine 100 unit/mL 20 unit subcut HS 11/05/22 05/17/23 subcutaneous solution (Lantus U-100 Insulin) acetaminophen 325 mg tablet 650 mg PO Q8H PRN Pain 02/24/23 05/17/23 (Tylenol) mirtazapine 30 mg tablet 30 mg PO HS 02/24/23 05/17/23 triamcinolone acetonide 0.1 % 1 applic topical BID PRN PSORIATIC 02/24/23 05/17/23 topical cream LESIONS WHEN NEEDED repaglinide 1 mg tablet 1 mg PO TIDM 03/07/23 05/17/23 lactulose 10 gram oral packet 10 g PO BID PRN Constipation 05/14/23 05/17/23 (Kristalose) Lactobacil.acidophilus-Bifido.animalis 1 cap PO DAILY 05/17/23 05/17/23 5 billion cell sprinkle capsule (Probiotic) acetylcysteine 600 mg capsule 600 mg PO DAILY 05/17/23 05/17/23 albuterol sulfate 2.5 mg/3 mL 2.5 mg inhalation DIRECTED PRN 05/17/23 05/17/23 (0.083 %) solution for nebulization Shortness Of Breath Or Wheezing ferrous sulfate 325 mg (65 mg 325 mg PO DAILY 05/17/23 05/17/23 iron) tablet (iron) mdhxfpwqcczx-ypk-jzwjp acid-vit 1 tab PO DAILY 05/17/23 05/17/23 K-lycop 400 mcg-20 mcg-370 mcg tablet (Men's 50 Plus Multivitamin) rifaximin 550 mg tablet (Xifaxan) 550 mg PO BID 05/17/23 05/17/23 zinc acetate 50 mg (zinc) capsule 50 mg PO DAILY 05/17/23 05/17/23 Previous Rx's Medication Instructions Recorded pantoprazole 40 mg tablet,delayed 40 mg PO BID 90 days #180 tabs 02/28/23 release Results & Data (ED) Vital Signs Vital Signs - 24 hr 05/16/23 23:25 05/16/23 23:59 05/17/23 00:39 Temperature 36.6 C Temperature Source Temporal Artery Scan Pulse Rate 60 58 L Pulse Rate [Finger] 56 L Pulse Rate from SpO2 Sensor Respiratory Rate 20 14 Respiratory Effort / Characteristics Non-Labored Spontaneous Non-Labored Spontaneous Respiratory Depth Normal Normal Respiratory Pattern Regular Blood Pressure 132/68 Blood Pressure [Left Arm] 136/59 L Blood Pressure Mean 89 Blood Pressure Mean [Left Arm] 84 Pulse Oximetry 97 99 Oxygen Delivery Method Room Air Room Air Sepsis New/Unexplained Change in Mental Status N/A Sepsis Action Taken by Nursing No Action Required 05/17/23 00:37 05/17/23 01:01 05/17/23 01:05 Temperature Temperature Source Pulse Rate 57 L 55 L 55 L Pulse Rate [Finger] Pulse Rate from SpO2 Sensor 55 L Respiratory Rate 16 11 L 18 Respiratory Effort / Characteristics Respiratory Depth Respiratory Pattern Blood Pressure Blood Pressure [Left Arm] Blood Pressure Mean Blood Pressure Mean [Left Arm] Pulse Oximetry 98 Oxygen Delivery Method Sepsis New/Unexplained Change in Mental Status Sepsis Action Taken by Nursing 05/17/23 01:05 05/17/23 01:43 05/17/23 02:00 Temperature Temperature Source Pulse Rate 59 L Pulse Rate [Finger] Pulse Rate from SpO2 Sensor 57 L Respiratory Rate 15 Respiratory Effort / Characteristics Respiratory Depth Respiratory Pattern Blood Pressure 128/49 L 140/64 Blood Pressure [Left Arm] Blood Pressure Mean 87 90 Blood Pressure Mean [Left Arm] Pulse Oximetry 97 Oxygen Delivery Method Sepsis New/Unexplained Change in Mental Status Sepsis Action Taken by Nursing 05/17/23 02:00 05/17/23 02:30 05/17/23 02:35 Temperature Temperature Source Pulse Rate 60 60 Pulse Rate [Finger] Pulse Rate from SpO2 Sensor 60 Respiratory Rate 25 H 14 Respiratory Effort / Characteristics Respiratory Depth Respiratory Pattern Blood Pressure 149/67 H Blood Pressure [Left Arm] Blood Pressure Mean 106 Blood Pressure Mean [Left Arm] Pulse Oximetry 99 Oxygen Delivery Method Sepsis New/Unexplained Change in Mental Status Sepsis Action Taken by Nursing 05/17/23 02:35 Temperature Temperature Source Pulse Rate 59 L Pulse Rate [Finger] Pulse Rate from SpO2 Sensor 58 L Respiratory Rate 12 Respiratory Effort / Characteristics Respiratory Depth Respiratory Pattern Blood Pressure Blood Pressure [Left Arm] Blood Pressure Mean Blood Pressure Mean [Left Arm] Pulse Oximetry 97 Oxygen Delivery Method Sepsis New/Unexplained Change in Mental Status Sepsis Action Taken by Nursing Laboratory Data 05/17/23 00:03 05/17/23 00:03 Lab Results 05/17/23 05/17/23 05/17/23 Range/Units 00:03 00:03 00:03 WBC 3.07 L (4.8-10.8) K/ul RBC 2.84 L (4.70-6.10) M/uL Hgb 9.1 L (14.0-18.0) g/dl Hct 27.0 L (42.0-52.0) % MCV 95.1 (80.0-100.0) fL MCH 32.0 (25.0-34.0) pg MCHC 33.7 (32.0-36.0) g/dL RDW Std Deviation 60.2 H (36.4-46.3) fL RDW Coeff of [place] 17.9 H (11.5-14.5) % Plt Count 83 L (130-400) K/uL Immature Gran % (Auto) 0.7 % Neut % (Auto) 59.0 % Lymph % (Auto) 24.1 % [place] % (Auto) 6.8 % Eos % (Auto) 9.1 % Baso % (Auto) 0.3 % Neut # (Auto) 1.81 (1.40-6.50) K/uL Lymph # (Auto) 0.74 L (1.2-3.4) K/uL [place] # (Auto) 0.21 (0.11-0.59) K/uL Eos # (Auto) 0.28 (0-0.50) K/uL Baso # (Auto) 0.01 (0-0.2) K/uL Immature Gran # (Auto) 0.02 (0.01-0.20) K/uL PT 12.9 H (9.0-12.0) Seconds INR 1.2 H (0.9-1.1) Sodium 142 (136-145) mmol/L Potassium 3.7 (3.5-5.1) mmol/L Chloride 112 H (98-107) mmol/L Carbon Dioxide 24 (21-32) mmol/L Anion Gap 6 (3-11) BUN 28 H (6-23) mg/dl Creatinine 1.58 H (0.6-1.4) mg/dl Est Cr Clr Drug Dosing 43.6 ml/min Est GFR ( Amer) 49.9 ml/min Est GFR (Non-Af Amer) 43.1 ml/min BUN/Creatinine Ratio 17.7 (10-20) Glucose 111 H (70-99(Fasting)) mg/dl Calcium 8.5 L (8.6-10.3) mg/dl Magnesium 1.6 L (1.7-2.4) mg/dl Total Bilirubin 3.7 H (0.2-1.0) mg/dl AST 46 H (13-39) U/L ALT 23 (7-52) U/L Alkaline Phosphatase 171 H (34-104) U/L Ammonia (18-72) umol/L Total Protein 6.9 (6.0-8.3) gm/dl Albumin 3.2 L (3.4-5.0) gm/dl Globulin 3.7 (2.5-4.0) gm/dl Albumin/Globulin Ratio 0.9 (0.9-2) Lipase 50 (11-82) U/L Urine Color Urine Appearance (Clear) Urine pH (4.5-7.5) Ur Specific [place] (1.000-1.030) Urine Protein (Negative) Urine Glucose (UA) (Negative) Urine Ketones (Negative) Urine Blood (Negative) Urine Nitrite (Negative) Urine Bilirubin (Negative) Urine Urobilinogen (Negative) Ur Leukocyte Esterase (Negative) Urine RBC (0-4) /hpf Urine WBC (0-5) /hpf Ur Epithelial Cells (0-5) /lpf Urine Bacteria (Negative) SARS-CoV-2 (PCR) (Negative) Influenza Type A (PCR) (Neg) Influenza Type B (PCR) (Neg) RSV (RT-PCR) (Neg) 05/17/23 05/17/23 05/17/23 Range/Units 00:03 01:30 02:37 WBC (4.8-10.8) K/ul RBC (4.70-6.10) M/uL Hgb (14.0-18.0) g/dl Hct (42.0-52.0) % MCV (80.0-100.0) fL MCH (25.0-34.0) pg MCHC (32.0-36.0) g/dL RDW Std Deviation (36.4-46.3) fL RDW Coeff of [place] (11.5-14.5) % Plt Count (130-400) K/uL Immature Gran % (Auto) % Neut % (Auto) % Lymph % (Auto) % [place] % (Auto) % Eos % (Auto) % Baso % (Auto) % Neut # (Auto) (1.40-6.50) K/uL Lymph # (Auto) (1.2-3.4) K/uL [place] # (Auto) (0.11-0.59) K/uL Eos # (Auto) (0-0.50) K/uL Baso # (Auto) (0-0.2) K/uL Immature Gran # (Auto) (0.01-0.20) K/uL PT (9.0-12.0) Seconds INR (0.9-1.1) Sodium (136-145) mmol/L Potassium (3.5-5.1) mmol/L Chloride (98-107) mmol/L Carbon Dioxide (21-32) mmol/L Anion Gap (3-11) BUN (6-23) mg/dl Creatinine (0.6-1.4) mg/dl Est Cr Clr Drug Dosing ml/min Est GFR ( Amer) ml/min Est GFR (Non-Af Amer) ml/min BUN/Creatinine Ratio (10-20) Glucose (70-99(Fasting)) mg/dl Calcium (8.6-10.3) mg/dl Magnesium (1.7-2.4) mg/dl Total Bilirubin (0.2-1.0) mg/dl AST (13-39) U/L ALT (7-52) U/L Alkaline Phosphatase (34-104) U/L Ammonia 156.0 H (18-72) umol/L Total Protein (6.0-8.3) gm/dl Albumin (3.4-5.0) gm/dl Globulin (2.5-4.0) gm/dl Albumin/Globulin Ratio (0.9-2) Lipase (11-82) U/L Urine Color Red Urine Appearance Cloudy A (Clear) Urine pH 6.0 (4.5-7.5) Ur Specific [place] 1.025 (1.000-1.030) Urine Protein 2+ H (Negative) Urine Glucose (UA) Negative (Negative) Urine Ketones Negative (Negative) Urine Blood 3+ H (Negative) Urine Nitrite Negative (Negative) Urine Bilirubin 1+ H (Negative) Urine Urobilinogen Positive H (Negative) Ur Leukocyte Esterase Negative (Negative) Urine RBC >30 H (0-4) /hpf Urine WBC 5-10 H (0-5) /hpf Ur Epithelial Cells 0-5 (0-5) /lpf Urine Bacteria Negative (Negative) SARS-CoV-2 (PCR) NEGATIVE (Negative) Influenza Type A (PCR) Negative (Neg) Influenza Type B (PCR) Negative (Neg) RSV (RT-PCR) Negative (Neg) Administered Medications Magnesium Sulfate/Dextrose (Magnesium Sulfate / D5w) 1 gm in 100 mls @ 50 mls/hr IV ONE ONE Stop: 05/17/23 05:14 Last Admin: 05/17/23 03:26 Dose: 50 mls/hr Documented By: CC Discontinued Medications Sodium Chloride (Nss 1000ml) 1,000 mls @ 80 mls/hr IV .[id number] Stop: 06/15/23 23:44 Last Admin: 05/17/23 00:32 Dose: 80 mls/hr Documented By: MARGI Magnesium Sulfate/Dextrose (Magnesium Sulfate / D5w) 1 gm in 100 mls @ 100 mls/hr IV NOW STA Stop: 05/17/23 01:40 Last Infusion: 05/17/23 02:45 Dose: 0 mls/hr Documented By: Admin: 05/17/23 01:00 Dose: 100 mls/hr Documented By: MARGI Lactulose (Lactulose Syrup 20 Gm/30 Ml Udc) 30 gm PO NOW STA Stop: 05/17/23 03:01 Last Admin: 05/17/23 04:16 Dose: 30 gm Documented By: NAYANA Metoclopramide HCl (Metoclopramide Hcl Inj 5 Mg/Ml 2 Ml Vial) 5 mg IV ONE ONE Stop: 05/17/23 02:07 Last Admin: 05/17/23 02:19 Dose: 5 mg Documented By: MARGI Imaging Data Radiologist's Impression: Head CT 05/17/23 00:43 Exam(s): CT HEAD Without Contrast EXAM: CT Head Without Intravenous Contrast CLINICAL HISTORY: Reason for exam: ams. TECHNIQUE: Axial computed tomography images of the head/brain without intravenous contrast. CTDI is 36.79 mGy and DLP is 624.41 mGy-cm. Automated exposure control was utilized for the study. A dose lowering technique was utilized adhering to the principles of ALARA. COMPARISON: No relevant prior studies available. FINDINGS: Brain: The cerebral and cerebellar sulci are mildly prominent consistent with mild brain atrophy. There are a few areas of decreased attenuation in the deep cerebral white matter consistent with mild small vessel ischemic/degenerative changes. No hemorrhage. Ventricles: Unremarkable. No ventriculomegaly. Bones/joints: Unremarkable. No acute fracture. Soft tissues: Unremarkable. Vasculature: Atherosclerotic disease. Sinuses: Unremarkable as visualized. No acute sinusitis. Mastoid air cells: Unremarkable as visualized. No mastoid effusion. IMPRESSION: No acute findings in the head/brain. Electronically signed by: Brayan Brooks MD 05/17/23 01:54 AM Discharge Plan Visit Data Chief Complaint: Illness Stated Complaint: PNEUMONIA,UNABLE TO WALK,CONFUSION,DIGESTIVE ISSU ED Provider: Melody Almanza Discharge Problem: AMS (altered mental status), Constipation, Nausea, Hypomagnesemia, Prolonged QT interval Patient Disposition: Admitted As Inpatient Discharge Instructions Interventions: ED Discharge Assessment Last Done: 05/17/23 04:13
[2023-05-17 00:40] LABS: Albumin Globulin Ratio 0.9 (0.9-2); Albumin Level 3.2 gm/dl (3.4-5.0); BUN Creatinine Ratio 17.7 (10-20); Bilirubin,Total 3.7 mg/dl (0.2-1.0); Calcium 8.5 mg/dl (8.6-10.3); Creatinine Clr Calc Pharmacy 43.6 ml/min; Est GFR (African American) 49.9 ml/min; Est GFR (Non-African American) 43.1 ml/min; Globulin 3.7 gm/dl (2.5-4.0); Magnesium 1.6 mg/dl (1.7-2.4); Potassium 3.7 mmol/L (3.5-5.1); Total Protein 6.9 gm/dl (6.0-8.3)
[2023-05-17] MEDS ORDERED: MAGNESIUM SULFATE / D5W 1 GM/100 ML BAG IV STA (00:41)
[2023-05-17 00:50] LABS: Basophils # (auto) 0.01 K/uL (0-0.2); Basophils % (auto) 0.3 %; Eosinophils # (auto) 0.28 K/uL (0-0.50); Eosinophils % (auto) 9.1 %; Hemoglobin 9.1 g/dl (14.0-18.0); Immature Granulocytes # (auto) 0.02 K/uL (0.01-0.20); Immature Granulocytes % (auto) 0.7 %; Lymphocytes # (auto) 0.74 K/uL (1.2-3.4); Lymphocytes % (auto) 24.1 %; Mean Corpuscular Hgb Conc 33.7 g/dL (32.0-36.0); Mean Corpuscular Volume 95.1 fL (80.0-100.0); Monocytes # (auto) 0.21 K/uL (0.11-0.59); Monocytes % (auto) 6.8 %; Neutrophils # (auto) 1.81 K/uL (1.40-6.50); Platelet Count 83 K/uL (130-400); RDW Coefficient of Variation 17.9 % (11.5-14.5); RDW Standard Deviation 60.2 fL (36.4-46.3); Red Blood Count 2.84 M/uL (4.70-6.10); White Blood Count 3.07 K/ul (4.8-10.8)
[2023-05-17 00:53] LABS: INR 1.2 (0.9-1.1); Prothrombin Time 12.9 Seconds (9.0-12.0)
[2023-05-17 01:52] LABS: Bilirubin Urine 1+ (Negative); Blood Urine 3+ (Negative); Glucose Urine UA Negative (Negative); Ketones Urine Negative (Negative); Leukocyte Esterase Urine Negative (Negative); Nitrite Urine Negative (Negative); Protein Urine 2+ (Negative); Specific Gravity Urine 1.025 (1.000-1.030); Urobilinogen Urine Positive (Negative)
[2023-05-17 01:53] LABS: Color Urine Red
[2023-05-17 01:54] LABS: Appearance Urine Cloudy (Clear)
[2023-05-17 01:56] LABS: Bacteria Urine Negative (Negative); Epithelial Cell Urine 0-5 /lpf (0-5); RBC Urine >30 /hpf (0-4)
--- NOTE | 2023-05-17 01:56 | CT Scan Report ---
Exam(s): CT HEAD Without Contrast EXAM: CT Head Without Intravenous Contrast CLINICAL HISTORY: Reason for exam: ams. TECHNIQUE: Axial computed tomography images of the head/brain without intravenous contrast. CTDI is 36.79 mGy and DLP is 624.41 mGy-cm. Automated exposure control was utilized for the study. A dose lowering technique was utilized adhering to the principles of ALARA. COMPARISON: No relevant prior studies available. FINDINGS: Brain: The cerebral and cerebellar sulci are mildly prominent consistent with mild brain atrophy. There are a few areas of decreased attenuation in the deep cerebral white matter consistent with mild small vessel ischemic/degenerative changes. No hemorrhage. Ventricles: Unremarkable. No ventriculomegaly. Bones/joints: Unremarkable. No acute fracture. Soft tissues: Unremarkable. Vasculature: Atherosclerotic disease. Sinuses: Unremarkable as visualized. No acute sinusitis. Mastoid air cells: Unremarkable as visualized. No mastoid effusion. IMPRESSION: No acute findings in the head/brain. Electronically signed by: Brayan Brooks MD 05/17/23 01:54 AM
[2023-05-17] MEDS ORDERED: METOCLOPRAMIDE HCL INJ 5 MG/ML 2 ML VIAL IV ONE (02:06)
[2023-05-17] MEDS ORDERED: LACTULOSE SYRUP 20 GM/30 ML UDC PO STA (03:00)
[2023-05-17] MEDS ORDERED: MAGNESIUM SULFATE / D5W 1 GM/100 ML BAG IV ONE (03:15)
[2023-05-17 03:28] LABS: Influenza A virus by PCR Negative (Neg); Influenza B virus by PCR Negative (Neg); RSV by PCR Negative (Neg); SARS CoV2 RNA(COVID-19) Ceph NEGATIVE (Negative)
--- NOTE | 2023-05-17 04:33 | History and Physical Report ---
DATE OF ADMISSION: 05/17/2023. CHIEF COMPLAINT: Nausea, altered mental status. HISTORY OF PRESENT ILLNESS: This is a 72-year-old male with past medical history significant for FOFANA, liver cirrhosis, status post TIPS revision, history of hepatocellular carcinoma, status post IR embolization, history of portal vein thrombosis as per records, diabetes, insulin requiring, chronic pancytopenia, baseline hemoglobin of 10, history of esophageal varices, portal hypertensive gastropathy, radiation proctitis, diverticulosis ____ pulmonary hypertension, BPH, prostate cancer, status post radiation, left renal mass, currently following with urology, who lives at home with his and son checks on him, was brought in because of altered mental status and found to have elevated ammonia. Patient currently alert, awake, and oriented to name and place, could tell his date of , could not tell today' date. He says his only complaint is nausea. Denies any headache, no dizziness, no blurred visions, no earache, no runny nose, no sore throat, no cough, no difficulty swallowing. No chest pain, no shortness of breath, no abdominal pain. Normal bladder movements. As per the patient, he has no constipation or diarrhea, but son states since he started taking Zofran on Saturday for his nausea he is getting constipated. No fever. Currently, resting comfortably, hemodynamically stable. Ammonia level is 156 in the ER. At home,when sick he walks with a walker, otherwise without support as per son. ALLERGIES: No known drug allergies. PAST MEDICAL HISTORY: As mentioned above. PAST SURGICAL HISTORY: Cataract surgery, colonoscopy, EGDs, TIPS procedure, tonsillectomy, sigmoidoscopy, TIPS revision. MEDICATIONS: The patient is on Tylenol p.r.n., acetylcysteine 600 mg p.o. daily, albuterol inhalation as directed p.r.n., allopurinol 200 mg p.o. daily, Celexa 10 mg p.o. a.m., ferrous sulfate 325 mg p.o. daily, finasteride 5 mg p.o. daily, Lasix 40 mg p.o. daily, Lantus 20 units subcutaneous at bedtime, probiotic 1 capsule daily, lactulose 10 gm p.o. b.i.d. p.r.n., Remeron 70 mg p.o. at bedtime, multivitamins 1 tablet p.o. daily, Protonix 40 mg p.o. daily, repaglinide 1 tablet p.o. t.i.d., Xifaxan 550 mg p.o. b.i.d.,triamnicolone topical b.i.d. p.r.n., zinc acetate 50 mg p.o. daily. FAMILY HISTORY: Significant for brother has alcoholism, heart disease. Father has alcoholism, colon cancer. Mother has hypertension. Daughter has cervical cancer. SOCIAL HISTORY: . Lives with his . No smoking. Currently, no alcohol. No drug use. REVIEW OF SYSTEMS: As per HPI. Rest of the review of systems is negative. PHYSICAL EXAMINATION: GENERAL: The patient is alert and oriented x2, not in acute distress. VITAL SIGNS: Temperature 36.6, pulse 60, respiratory rate 18, blood pressure 124/61, oxygen 98% on room air. HEENT: Pupils equal, round and reactive to light. Oral mucosa moist. NECK: No JVD, no neck masses. CARDIOVASCULAR: S1 and S2 heard. Regular rate and rhythm. No murmur, no gallop. RESPIRATORY SYSTEM: Normal AP diameter. No accessory muscle use. No wheezing or crackles. ABDOMEN: Soft, bowel sounds present, nontender, no distention. CENTRAL NERVOUS SYSTEM: Alert and oriented x2. Speech is clear. No facial droop. Obeys simple commands. Moves extremities. EXTREMITIES: Trace pedal edema present. SKIN: Diffuse scaly rash seen. LABORATORY DATA: WBC 3, hemoglobin 9.1, hematocrit 27, platelets 83. PT 12.9, INR 1.2. Sodium 142, potassium 3.7, chloride 112, BUN 28, creatinine 1.58, serum glucose 111, calcium 8.5, magnesium 1.6, total bilirubin 3.7, AST 46, ALT 23, alkaline phosphatase 171. Ammonia 156, lipase 50. Urinalysis, nitrite negative, leukocyte esterase negative, bacteria negative. SARS-CoV-2 PCR, influenza A and B PCR, RSV PCR pending. IMAGING DATA: CT of the head, no acute findings. CT abdomen and pelvis x-ray results pending. EKG: Normal sinus bradycardia at a rate of 56, prolonged QT at 504. Nonspecific ST abnormalities. ASSESSMENT AND PLAN: This 72-year-old male presents with altered mental status. 1. Altered mental status Hepatic encephalopathy. History of nonalcoholic steatohepatitis, liver cirrhosis, status post transjugular intrahepatic portosystemic shunt procedure. Possibly dehydrated from being nauseous and also getting constipated after started Zofran. Will give lactulose one dose now and then lactulose 30 gm po q.i.d. Continue rifaximin. Gentle fluids. Monitor in the tele floor. Consult GI in the a.m. for further recommendations. Holding Lasix for now Monitor for volume overload. 2.Fofana liver cirrhosis. We will follow the labs. ON lactulose and xifain. holding lasix, will monitor for volume overload. Elevated lft seems chronic. will follow labs.Low sdoium diet. 3. LUCRETIA current creatinine of 1.5. Baseline creatinine 1.1. Getting gentle fluids. We will hold Lasix. Avoid nephrotoxic agents. Will follow the repeat labs. 4. Diabetes. Continue his home Lantus. Continue full-liquid diet because of altered mental status, on insulin sliding scale. Glycemic pharmacy consult. Monitor the blood sugars. 5. Gastroesophageal reflux disease. On Protonix. 6. Pancytopenia. Will follow labs. 7. Depression. Citalopram and Remeron. 8. Psoriasis . Has diffuse lesions. on triamcinolone prn. Can consult dermatology. 9.. Deep venous thrombosis prophylaxis. Sequential compression devices for now as has thrombocytopenia. DISPOSITION: Closely monitor in the tele floor. Level 1 full code. Expect to discharge home and follow with family doctor. Job ID: [id number] MTDD
[2023-05-17] MEDS ORDERED: NITROGLYCERIN SL 0.4 MG/TAB TAB SL PRN (04:50)
[2023-05-17] MEDS ORDERED: GLUCOSE 10 TAB/TUBE PO PRN (04:50)
[2023-05-17] MEDS ORDERED: ALBUTEROL 0.083% NEBU SOLN 3 ML VIAL INH PRN ×2 (04:50→05:08)
[2023-05-17] MEDS ORDERED: GLUCAGON FOR INJ 1 MG VIAL SQ PRN (04:50)
[2023-05-17] MEDS ORDERED: CARBOHYDRATES FOR HYPOGLYCEMIA PO PRN (04:50)
[2023-05-17] MEDS ORDERED: TRIAMCINOLONE ACET 0.1% CR 15 GM TUBE TOP PRN (04:50)
[2023-05-17] MEDS ORDERED: DEXTROSE 50% 50 ML SYRINGE IV PRN (04:50)
[2023-05-17] MEDS ORDERED: PHARMACY GLYCEMIC MGMT CONSULT PRN (04:50)
[2023-05-17] MEDS ORDERED: GLUCOSE 40% GEL 15 GM TUBE PO PRN (04:50)
[2023-05-17] MEDS: SODIUM CHLORIDE 0.9% 1000ML 1,000 ML IV SCH ×2 (05:30→20:34)
--- NOTE | 2023-05-17 07:17 | XRay Report ---
XR abdomen 2V w PA chest HISTORY: 72 years-old Male constipation acute chest and abdominal pain with constipation COMPARISON: 05/13/2023 TECHNIQUE: PA view of the chest with upright and supine views of the abdomen FINDINGS: Cardiac silhouette is again enlarged. No pneumothorax, pleural effusion, airspace consolidation or pu lmonary edema. Bones of the chest appear grossly intact. No pneumatosis or pneumoperitoneum. TIPS is again noted in similar positioning. Vascular calcificatio ns. Prominent air-filled loops of jejunum appear stable. Moderate fecal retention in the right hemico ramos. Nonobstructive bowel gas pattern. No urolith or acute fracture. IMPRESSION: 1. No acute process of the chest. 2. Nonobstructive bowel gas pattern. 3. Moderate fecal retention of the right hemicolon. ACT 112: Negative or not required by law. The above report was generated using voice recognition software. It may contain grammatical, syntax o r spelling errors. Electronically signed by: Yovany Gonzalez M.D. 05/17/2023 7:15 AM
[2023-05-17 07:47] LABS: Basophils # (auto) 0.02 K/uL (0-0.2); Basophils % (auto) 0.7 %; Eosinophils # (auto) 0.33 K/uL (0-0.50); Eosinophils % (auto) 11.1 %; Hematocrit (blood only) 26.1 % (42.0-52.0); Hemoglobin 8.8 g/dl (14.0-18.0); Immature Granulocytes # (auto) 0.01 K/uL (0.01-0.20); Immature Granulocytes % (auto) 0.3 %; Lymphocytes % (auto) 23.6 %; Mean Corpuscular Hemoglobin 32.1 pg (25.0-34.0); Mean Corpuscular Hgb Conc 33.7 g/dL (32.0-36.0); Mean Corpuscular Volume 95.3 fL (80.0-100.0); Mean Platelet Volume 12.2 fL (9.4-12.4); Monocytes # (auto) 0.22 K/uL (0.11-0.59); Monocytes % (auto) 7.4 %; Neutrophils # (auto) 1.68 K/uL (1.40-6.50); Neutrophils % (auto) 56.9 %; Platelet Count 87 K/uL (130-400); RDW Coefficient of Variation 17.8 % (11.5-14.5); RDW Standard Deviation 60.4 fL (36.4-46.3); Red Blood Count 2.74 M/uL (4.70-6.10); White Blood Count 2.96 K/ul (4.8-10.8)
[2023-05-17 08:05] LABS: Albumin Level 2.9 gm/dl (3.4-5.0); BUN Creatinine Ratio 18.4 (10-20); Bilirubin Direct 0.8 mg/dl (0-0.2); Bilirubin,Total 3.9 mg/dl (0.2-1.0); Calcium 8.5 mg/dl (8.6-10.3); Creatinine Clr Calc Pharmacy 48.9 ml/min; Est GFR (African American) 57.3 ml/min; Est GFR (Non-African American) 49.4 ml/min; Magnesium 2.2 mg/dl (1.7-2.4); Potassium 3.7 mmol/L (3.5-5.1); Total Protein 6.4 gm/dl (6.0-8.3)
[2023-05-17] MEDS: INSULIN ASPART PER UNIT CHARGE SC SCH ×4 (08:20→21:40)
[2023-05-17 08:33] LABS: Estimated Average Glucose 88 mg/dl; Hemoglobin A1C 4.7 % (4.5-5.6)
[2023-05-17] MEDS: ACETYLCYSTEINE 600 MG CAP PO SCH (08:40)
[2023-05-17] MEDS: CITALOPRAM 20 MG TAB PO SCH (08:41)
[2023-05-17] MEDS: FERROUS SULFATE 325 MG TAB PO SCH (08:41)
[2023-05-17] MEDS: allopurinoL 100 MG TAB PO SCH (08:41)
[2023-05-17] MEDS: FINASTERIDE 5 MG TAB PO SCH (08:42)
[2023-05-17] MEDS: CEROVITE ADV FORMULA TAB PO SCH (08:42)
[2023-05-17] MEDS: LACTULOSE SYRUP 30 GM/45 ML UDP PO SCH ×6 (08:42→20:38)
[2023-05-17] MEDS: ADVANCED PROBIOTIC 1250 MG CAPSULE PO SCH (08:42)
[2023-05-17] MEDS: rifAXIMin 550 MG TABLET PO SCH ×2 (08:43→20:35)
[2023-05-17] MEDS: PANTOprazole 40 MG TAB PO SCH ×2 (08:43→20:35)
[2023-05-17] MEDS: ZINC SULFATE 220 MG CAPSULE PO SCH (08:43)
--- NOTE | 2023-05-17 09:17 | Gastrointestinal Consultation ---
Date of Consultation May 17, 2023 Assessment & Plan (1) AMS (altered mental status): 72 year old male with history of FOFANA cirrhosis, MELD 17, HCC s/p embolization with no residual active tumor noted on MRI from 01/2023, EV, PHG, HE,s/p TIPS, prostate CA S/P tx and radiation proctitis, diverticulosis, T2DM admitted w/ confusion suspected HE given constipation x 1 week despite compliance with lactulose Rule out infectious etiology - Chest XR - Blood culture - Urine culture - ABD US to screen for ascites Head CT completed Increase lactulose, titrated to 2-3 BMs daily Xifaxan 550 BID Will contact applications coordinator Thank you for allowing us to participate in the care of this patient. Please call with any acute changes, questions or concerns. Please see addendum below with additional recommendation from my supervising physician. Supervising Physician Co-Signing Physician Notes Attending attestation I have seen, examined this patient, and agree with the findings and above by our mid-level provider JEFF Thompson, with the following additions: Better this am, HE likely due to constipation due to zofran Would consider oral vs rectal lactulose given hx of radiation proctitis R/O infection, electrolytes, and continue supportive care History of Present Illness Reason for Consultation: HE Requesting Physician: HE Attending Physician: Franko Villanueva MD History of Present Illness 72 year old male with history of FOFANA cirrhosis, MELD 17, HCC s/p embolization with no residual active tumor noted on MRI from 01/2023, EV, PHG, HE,s/p TIPS, prostate CA S/P tx and radiation proctitis, diverticulosis, DM-2 admitted with confusion, suspected HE. GI was asked to evaluate for HE. Pt was seen and evaluated, chart reviewed. He is awake, alert and oriented to self. No abd pain, no nausea, vomiting. Denies any diarrhea/constipation. No black or bloody stools. He was last seen by transplant clinic in Jan 2023. MELD [address] head 2022: no acute findings in the head/brain. ABD XR 2022: 1. No acute process of the chest. 2. Nonobstructive bowel gas pattern. 3. Moderate fecal retention of the right hemicolon. Allergies Allergy/AdvReac Type Severity Reaction Status Date / Time No Known Allergies Allergy Mild Verified 05/17/23 01:18 Home Medications Medication Instructions Recorded Confirmed Type citalopram 10 mg tablet (Celexa) 10 mg PO QAM 03/24/20 05/17/23 History allopurinol 100 mg tablet 200 mg PO DAILY 05/16/20 05/17/23 History finasteride 5 mg tablet 5 mg PO QAM 11/03/21 05/17/23 History furosemide 20 mg tablet (Lasix) 40 mg PO QAM 11/02/22 05/17/23 History insulin glargine 100 unit/mL 20 unit subcut HS 11/05/22 05/17/23 History subcutaneous solution (Lantus U-100 Insulin) acetaminophen 325 mg tablet 650 mg PO Q8H PRN Pain 02/24/23 05/17/23 History (Tylenol) mirtazapine 30 mg tablet 30 mg PO HS 02/24/23 05/17/23 History triamcinolone acetonide 0.1 % 1 applic topical BID PRN PSORIATIC 02/24/23 05/17/23 History topical cream LESIONS WHEN NEEDED pantoprazole 40 mg tablet,delayed 40 mg PO BID 90 days #180 tabs 02/28/23 05/17/23 Rx release repaglinide 1 mg tablet 1 mg PO TIDM 03/07/23 05/17/23 History lactulose 10 gram oral packet 10 g PO BID PRN Constipation 05/14/23 05/17/23 History (Kristalose) Lactobacil.acidophilus-Bifido.animalis 1 cap PO DAILY 05/17/23 05/17/23 History 5 billion cell sprinkle capsule (Probiotic) acetylcysteine 600 mg capsule 600 mg PO DAILY 05/17/23 05/17/23 History albuterol sulfate 2.5 mg/3 mL 2.5 mg inhalation DIRECTED PRN 05/17/23 05/17/23 History (0.083 %) solution for nebulization Shortness Of Breath Or Wheezing ferrous sulfate 325 mg (65 mg 325 mg PO DAILY 05/17/23 05/17/23 History iron) tablet (iron) ybagjhkjgtbw-tws-fjfzh acid-vit 1 tab PO DAILY 05/17/23 05/17/23 History K-lycop 400 mcg-20 mcg-370 mcg tablet (Men's 50 Plus Multivitamin) rifaximin 550 mg tablet (Xifaxan) 550 mg PO BID 05/17/23 05/17/23 History zinc acetate 50 mg (zinc) capsule 50 mg PO DAILY 05/17/23 05/17/23 History Patient History Medical History Anemia of chronic disease monthly labs done Anxiety and depression CKD (chronic kidney disease) stage 3, GFR 30-59 ml/min Esophageal varices hx Fatigue on exertion/liver issues have decreased strength GAVE (gastric antral vascular ectasia) pt not sure what this is GERD (gastroesophageal reflux disease) Gout NO ISSUES CURRENTLY History of panic attacks History of recent blood transfusion 11/05/22 Hypertension hx/sometimes will read a little low. Liver spots recent testing and no changes. Nonalcoholic steatohepatitis (FOFANA) Prostate cancer (11/10/20) hx radiation Psoriasis Rectal bleeding hx of T2DM (type 2 diabetes mellitus) Upper GI bleed hx of Surgical History History of abdominal paracentesis multiple--last 01/14/23 History of colonoscopy with polypectomy History of esophagogastroduodenoscopy (EGD) last 10/25 revealed grade 2 esophageal varices, grade 1 gastric varices STABLE History of left cataract surgery History of prostate biopsy malignant History of right cataract surgery History of tonsillectomy and adenoidectomy S/P TIPS (transjugular intrahepatic portosystemic shunt) Family History Father , "3/4 liver gone due to drinking" Colorectal cancer, Onset Age: 63 Mother Lung cancer Daughter Cancer cervical and thyroid cancers Ovarian cancer Other No family history of adverse response to anesthesia 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 Smoking Status: Never smoker Second Hand Exposure: No; Do You Dip or Chew Tobacco: No; Hx Alcohol Use: No Hx Substance Use: No Preferred Language: Greek Communication Ability: Effective Visual Impairment: No Limitations Hearing Ability: Normal Jd Edwards Consultant Required: No Beliefs That Will Affect Care: None marital status: Current Living Situation: Spouse Current Living Situation Comment: is currently at [facility] 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 How many Children do You have: 6 How many Children do You have Comment: one , eldest daughter in her sleep from seizure disorder Other Information That Helps Us Care for You: Yes (USING [facility] TO PROCEDURE.SON WILL BE DRIVING HOME.) Feels Safe at Home: Yes Childhood Exposure to Second-Hand Smoke: Yes Diet Comment: "I watch my sugar, average fasting is 140 mg/dl" caffeine: Yes (cola, sugar free, decaf) during the past year weight has: remained stable Dental Care, Regularly: No Physical Activity Frequency: Does not Exercise Seatbelt Use: always Sunscreen Use: Yes Assistive Devices: Glasses and Walker Review of Systems Review of Systems: All systems reviewed & are unremarkable except as noted in HPI & below Physical Exam Constitutional: WD/WN, vitals as above Respiratory: normal respiratory effort, lungs clear to auscultation Cardiovascular: Rate/Rhythm: regular rate Gastrointestinal (Abdomen): normal bowel sounds, soft, nontender, no hepatosplenomegaly Skin: no rashes, warm and dry Results & Data Vital Signs (Past 12 Hours) Vital Signs Temp Pulse Pulse Resp BP BP Pulse Ox 05/17/23 08:14 36.4 C L 56 L 19 146/63 H 96 05/17/23 04:50 56 L 05/17/23 04:50 05/17/23 04:50 05/17/23 04:50 55 L 18 125/67 98 05/17/23 05:13 36.5 C 55 L 16 125/67 98 05/17/23 04:50 05/17/23 03:21 60 18 124/61 98 05/17/23 02:35 59 L 12 97 05/17/23 02:35 149/67 H 05/17/23 02:30 60 14 05/17/23 02:00 60 25 H 99 05/17/23 02:00 140/64 05/17/23 01:43 59 L 15 97 05/17/23 01:05 128/49 L 05/17/23 01:05 55 L 18 98 05/17/23 01:01 55 L 11 L 05/17/23 00:37 57 L 16 05/17/23 00:39 58 L 05/16/23 23:59 56 L 14 136/59 L 99 05/16/23 23:25 36.6 C 60 20 132/68 97 Pulse Ox O2 Del Method O2 Del Method 05/17/23 08:14 Room Air 05/17/23 04:50 05/17/23 04:50 Room Air 05/17/23 04:50 98 Room Air 05/17/23 04:50 Room Air 05/17/23 05:13 Room Air 05/17/23 04:50 98 Room Air 05/17/23 03:21 Room Air 05/17/23 02:35 05/17/23 02:35 05/17/23 02:30 05/17/23 02:00 05/17/23 02:00 05/17/23 01:43 05/17/23 01:05 05/17/23 01:05 05/17/23 01:01 05/17/23 00:37 05/17/23 00:39 05/16/23 23:59 Room Air 05/16/23 23:25 Room Air Laboratory Results 05/17/23 05/17/23 05/17/23 Range/Units 07:56 07:29 07:26 WBC (4.8-10.8) K/ul RBC (4.70-6.10) M/uL Hgb (14.0-18.0) g/dl Hct (42.0-52.0) % MCV (80.0-100.0) fL MCH (25.0-34.0) pg MCHC (32.0-36.0) g/dL RDW Std Deviation (36.4-46.3) fL RDW Coeff of [place] (11.5-14.5) % Plt Count (130-400) K/uL MPV (9.4-12.4) fL Immature Gran % (Auto) % Neut % (Auto) % Lymph % (Auto) % [place] % (Auto) % Eos % (Auto) % Baso % (Auto) % Neut # (Auto) (1.40-6.50) K/uL Lymph # (Auto) (1.2-3.4) K/uL [place] # (Auto) (0.11-0.59) K/uL Eos # (Auto) (0-0.50) K/uL Baso # (Auto) (0-0.2) K/uL Immature Gran # (Auto) (0.01-0.20) K/uL PT (9.0-12.0) Seconds INR (0.9-1.1) Sodium (136-145) mmol/L Potassium (3.5-5.1) mmol/L Chloride (98-107) mmol/L Carbon Dioxide (21-32) mmol/L Anion Gap (3-11) BUN (6-23) mg/dl Creatinine (0.6-1.4) mg/dl Est Cr Clr Drug Dosing ml/min Est GFR ( Amer) ml/min Est GFR (Non-Af Amer) ml/min BUN/Creatinine Ratio (10-20) Glucose (70-99(Fasting)) mg/dl POC Glucose 140 H (70-99) mg/dl Estimat Average Glucose 88 mg/dl Hemoglobin A1c 4.7 (4.5-5.6) % Calcium (8.6-10.3) mg/dl Magnesium (1.7-2.4) mg/dl Total Bilirubin (0.2-1.0) mg/dl Direct Bilirubin (0-0.2) mg/dl AST (13-39) U/L ALT (7-52) U/L Alkaline Phosphatase (34-104) U/L Ammonia 116.0 H (18-72) umol/L Total Protein (6.0-8.3) gm/dl Albumin (3.4-5.0) gm/dl Globulin (2.5-4.0) gm/dl Albumin/Globulin Ratio (0.9-2) Lipase (11-82) U/L Urine Color Urine Appearance (Clear) Urine pH (4.5-7.5) Ur Specific [place] (1.000-1.030) Urine Protein (Negative) Urine Glucose (UA) (Negative) Urine Ketones (Negative) Urine Blood (Negative) Urine Nitrite (Negative) Urine Bilirubin (Negative) Urine Urobilinogen (Negative) Ur Leukocyte Esterase (Negative) Urine RBC (0-4) /hpf Urine WBC (0-5) /hpf Ur Epithelial Cells (0-5) /lpf Urine Bacteria (Negative) SARS-CoV-2 (PCR) (Negative) Influenza Type A (PCR) (Neg) Influenza Type B (PCR) (Neg) RSV (RT-PCR) (Neg) 05/17/23 05/17/23 05/17/23 Range/Units 07:26 07:26 02:37 WBC 2.96 L (4.8-10.8) K/ul RBC 2.74 L (4.70-6.10) M/uL Hgb 8.8 L (14.0-18.0) g/dl Hct 26.1 L (42.0-52.0) % MCV 95.3 (80.0-100.0) fL MCH 32.1 (25.0-34.0) pg MCHC 33.7 (32.0-36.0) g/dL RDW Std Deviation 60.4 H (36.4-46.3) fL RDW Coeff of [place] 17.8 H (11.5-14.5) % Plt Count 87 L (130-400) K/uL MPV 12.2 (9.4-12.4) fL Immature Gran % (Auto) 0.3 % Neut % (Auto) 56.9 % Lymph % (Auto) 23.6 % [place] % (Auto) 7.4 % Eos % (Auto) 11.1 % Baso % (Auto) 0.7 % Neut # (Auto) 1.68 (1.40-6.50) K/uL Lymph # (Auto) 0.70 L (1.2-3.4) K/uL [place] # (Auto) 0.22 (0.11-0.59) K/uL Eos # (Auto) 0.33 (0-0.50) K/uL Baso # (Auto) 0.02 (0-0.2) K/uL Immature Gran # (Auto) 0.01 (0.01-0.20) K/uL PT (9.0-12.0) Seconds INR (0.9-1.1) Sodium 145 (136-145) mmol/L Potassium 3.7 (3.5-5.1) mmol/L Chloride 114 H (98-107) mmol/L Carbon Dioxide 25 (21-32) mmol/L Anion Gap 6 (3-11) BUN 26 H (6-23) mg/dl Creatinine 1.41 H (0.6-1.4) mg/dl Est Cr Clr Drug Dosing 48.9 ml/min Est GFR ( Amer) 57.3 ml/min Est GFR (Non-Af Amer) 49.4 ml/min BUN/Creatinine Ratio 18.4 (10-20) Glucose 121 H (70-99(Fasting)) mg/dl POC Glucose (70-99) mg/dl Estimat Average Glucose mg/dl Hemoglobin A1c (4.5-5.6) % Calcium 8.5 L (8.6-10.3) mg/dl Magnesium 2.2 (1.7-2.4) mg/dl Total Bilirubin 3.9 H (0.2-1.0) mg/dl Direct Bilirubin 0.8 H (0-0.2) mg/dl AST 42 H (13-39) U/L ALT 22 (7-52) U/L Alkaline Phosphatase 143 H (34-104) U/L Ammonia (18-72) umol/L Total Protein 6.4 (6.0-8.3) gm/dl Albumin 2.9 L (3.4-5.0) gm/dl Globulin (2.5-4.0) gm/dl Albumin/Globulin Ratio (0.9-2) Lipase (11-82) U/L Urine Color Urine Appearance (Clear) Urine pH (4.5-7.5) Ur Specific [place] (1.000-1.030) Urine Protein (Negative) Urine Glucose (UA) (Negative) Urine Ketones (Negative) Urine Blood (Negative) Urine Nitrite (Negative) Urine Bilirubin (Negative) Urine Urobilinogen (Negative) Ur Leukocyte Esterase (Negative) Urine RBC (0-4) /hpf Urine WBC (0-5) /hpf Ur Epithelial Cells (0-5) /lpf Urine Bacteria (Negative) SARS-CoV-2 (PCR) NEGATIVE (Negative) Influenza Type A (PCR) Negative (Neg) Influenza Type B (PCR) Negative (Neg) RSV (RT-PCR) Negative (Neg) 05/17/23 05/17/23 05/17/23 Range/Units 01:30 00:03 00:03 WBC (4.8-10.8) K/ul RBC (4.70-6.10) M/uL Hgb (14.0-18.0) g/dl Hct (42.0-52.0) % MCV (80.0-100.0) fL MCH (25.0-34.0) pg MCHC (32.0-36.0) g/dL RDW Std Deviation (36.4-46.3) fL RDW Coeff of [place] (11.5-14.5) % Plt Count (130-400) K/uL MPV (9.4-12.4) fL Immature Gran % (Auto) % Neut % (Auto) % Lymph % (Auto) % [place] % (Auto) % Eos % (Auto) % Baso % (Auto) % Neut # (Auto) (1.40-6.50) K/uL Lymph # (Auto) (1.2-3.4) K/uL [place] # (Auto) (0.11-0.59) K/uL Eos # (Auto) (0-0.50) K/uL Baso # (Auto) (0-0.2) K/uL Immature Gran # (Auto) (0.01-0.20) K/uL PT (9.0-12.0) Seconds INR (0.9-1.1) Sodium 142 (136-145) mmol/L Potassium 3.7 (3.5-5.1) mmol/L Chloride 112 H (98-107) mmol/L Carbon Dioxide 24 (21-32) mmol/L Anion Gap 6 (3-11) BUN 28 H (6-23) mg/dl Creatinine 1.58 H (0.6-1.4) mg/dl Est Cr Clr Drug Dosing 43.6 ml/min Est GFR ( Amer) 49.9 ml/min Est GFR (Non-Af Amer) 43.1 ml/min BUN/Creatinine Ratio 17.7 (10-20) Glucose 111 H (70-99(Fasting)) mg/dl POC Glucose (70-99) mg/dl Estimat Average Glucose mg/dl Hemoglobin A1c (4.5-5.6) % Calcium 8.5 L (8.6-10.3) mg/dl Magnesium 1.6 L (1.7-2.4) mg/dl Total Bilirubin 3.7 H (0.2-1.0) mg/dl Direct Bilirubin (0-0.2) mg/dl AST 46 H (13-39) U/L ALT 23 (7-52) U/L Alkaline Phosphatase 171 H (34-104) U/L Ammonia 156.0 H (18-72) umol/L Total Protein 6.9 (6.0-8.3) gm/dl Albumin 3.2 L (3.4-5.0) gm/dl Globulin 3.7 (2.5-4.0) gm/dl Albumin/Globulin Ratio 0.9 (0.9-2) Lipase 50 (11-82) U/L Urine Color Red Urine Appearance Cloudy A (Clear) Urine pH 6.0 (4.5-7.5) Ur Specific [place] 1.025 (1.000-1.030) Urine Protein 2+ H (Negative) Urine Glucose (UA) Negative (Negative) Urine Ketones Negative (Negative) Urine Blood 3+ H (Negative) Urine Nitrite Negative (Negative) Urine Bilirubin 1+ H (Negative) Urine Urobilinogen Positive H (Negative) Ur Leukocyte Esterase Negative (Negative) Urine RBC >30 H (0-4) /hpf Urine WBC 5-10 H (0-5) /hpf Ur Epithelial Cells 0-5 (0-5) /lpf Urine Bacteria Negative (Negative) SARS-CoV-2 (PCR) (Negative) Influenza Type A (PCR) (Neg) Influenza Type B (PCR) (Neg) RSV (RT-PCR) (Neg) 05/17/23 05/17/23 Range/Units 00:03 00:03 WBC 3.07 L (4.8-10.8) K/ul RBC 2.84 L (4.70-6.10) M/uL Hgb 9.1 L (14.0-18.0) g/dl Hct 27.0 L (42.0-52.0) % MCV 95.1 (80.0-100.0) fL MCH 32.0 (25.0-34.0) pg MCHC 33.7 (32.0-36.0) g/dL RDW Std Deviation 60.2 H (36.4-46.3) fL RDW Coeff of [place] 17.9 H (11.5-14.5) % Plt Count 83 L (130-400) K/uL MPV (9.4-12.4) fL Immature Gran % (Auto) 0.7 % Neut % (Auto) 59.0 % Lymph % (Auto) 24.1 % [place] % (Auto) 6.8 % Eos % (Auto) 9.1 % Baso % (Auto) 0.3 % Neut # (Auto) 1.81 (1.40-6.50) K/uL Lymph # (Auto) 0.74 L (1.2-3.4) K/uL [place] # (Auto) 0.21 (0.11-0.59) K/uL Eos # (Auto) 0.28 (0-0.50) K/uL Baso # (Auto) 0.01 (0-0.2) K/uL Immature Gran # (Auto) 0.02 (0.01-0.20) K/uL PT 12.9 H (9.0-12.0) Seconds INR 1.2 H (0.9-1.1) Sodium (136-145) mmol/L Potassium (3.5-5.1) mmol/L Chloride (98-107) mmol/L Carbon Dioxide (21-32) mmol/L Anion Gap (3-11) BUN (6-23) mg/dl Creatinine (0.6-1.4) mg/dl Est Cr Clr Drug Dosing ml/min Est GFR ( Amer) ml/min Est GFR (Non-Af Amer) ml/min BUN/Creatinine Ratio (10-20) Glucose (70-99(Fasting)) mg/dl POC Glucose (70-99) mg/dl Estimat Average Glucose mg/dl Hemoglobin A1c (4.5-5.6) % Calcium (8.6-10.3) mg/dl Magnesium (1.7-2.4) mg/dl Total Bilirubin (0.2-1.0) mg/dl Direct Bilirubin (0-0.2) mg/dl AST (13-39) U/L ALT (7-52) U/L Alkaline Phosphatase (34-104) U/L Ammonia (18-72) umol/L Total Protein (6.0-8.3) gm/dl Albumin (3.4-5.0) gm/dl Globulin (2.5-4.0) gm/dl Albumin/Globulin Ratio (0.9-2) Lipase (11-82) U/L Urine Color Urine Appearance (Clear) Urine pH (4.5-7.5) Ur Specific [place] (1.000-1.030) Urine Protein (Negative) Urine Glucose (UA) (Negative) Urine Ketones (Negative) Urine Blood (Negative) Urine Nitrite (Negative) Urine Bilirubin (Negative) Urine Urobilinogen (Negative) Ur Leukocyte Esterase (Negative) Urine RBC (0-4) /hpf Urine WBC (0-5) /hpf Ur Epithelial Cells (0-5) /lpf Urine Bacteria (Negative) SARS-CoV-2 (PCR) (Negative) Influenza Type A (PCR) (Neg) Influenza Type B (PCR) (Neg) RSV (RT-PCR) (Neg)
--- NOTE | 2023-05-17 10:28 | Pharmacy Report ---
Pharmacy Glycemic Short Note 2 - Date of Service May 17, 2023 - Glycemic Short BSG Results (Last 24 hours): 05/17/23 05/17/23 05/17/23 00:03 07:26 07:56 Glucose 111 H 121 H POC Glucose 140 H OUTPATIENT ANTIDIABETIC REGIMEN: * Lantus 20 unit SQ HS * Prandin 1 mg PO TIDM HbA1c = 4.7% on 05/17/23 ASSESSMENT: * 72 y/o M admitted for altered mental status. He has history of FOFANA cirrhosis, and type 2 diabetes managed at home on basal insulin and oral metformin. * Patient has not received any basal insulin so far but BSGs have been well controlled. * Basal insulin ordered BID starting tonight based on stress of 1 and Novolog parameters between stress of 1 and 2. * BSGs within goal so far. Continued with same parameters. PLAN FOR INPATIENT GLYCEMIC CONTROL: * Hold outpatient oral diabetes medications * Basal insulin * Lantus 6 units SQ BID starting tonight * Bolus insulin * NovoLog per scale ACHS or Q6hrs while NPO * Goal Range: Low 120 mg/dL - High 150 mg/dL * Correction Factor: 30 mg/dL/unit * Nutritional / Prandial insulin per carb ratio of 1 unit per 12 grams CHO consumed
--- NOTE | 2023-05-17 11:01 | Hospitalist Progress Note ---
Date of Service May 17, 2023 Assessment & Plan (1) AMS (altered mental status): Plan: 1. Altered mental status Hepatic encephalopathy. History of nonalcoholic steatohepatitis, liver cirrhosis, status post transjugular intrahepatic portosystemic shunt procedure. -- improving -- increase lactulose to q2h until with BM continue Rifaximin -- check urine culture and blood cultures -- GI on board 2.Dalton liver cirrhosis. -- seems to be compensated Lasix on hold for LUCRETIA 3. LUCRETIA Chronic kidney disease, stage 3 - current creatinine of 1.5. Baseline creatinine 1.1. Getting gentle fluids. We will hold Lasix. 4. Diabetes. Continue his home Lantus. Continue full-liquid diet because of altered mental status, on insulin sliding scale. Glycemic pharmacy consult. Monitor the blood sugars. 5. Gastroesophageal reflux disease. On Protonix. 6. Pancytopenia.Monitor 7. Depression. Citalopram and Remeron. 8. Psoriasis . Has diffuse lesions. on triamcinolone prn 9.. Deep venous thrombosis prophylaxis. Sequential compression devices for now as has thrombocytopenia. Disposition lives with family Admission and Anticipated Discharge Date Admission Date: May 17, 2023 Subjective ff up for hep enceph, etc seen resting in bed, comfortable oriented x 3 reports LLQ pain, only had a small BM today no nausea/vomiting, fever/chills no other symptoms Review of Systems Review of Systems: all noted and negative except for above Physical Exam Physical Exam: General- oriented x 3, not in distress, speaks in sentences with no effort or accessory muscle use Eyes- anicteric Neck- no JVD Lungs- clear breath sounds bilaterally, no rales/wheezes Heart- normal rate, regular rhythm; no murmurs Abdomen- normal bowel sounds, nondistended, soft, mild LLQ tenderness Extremities- no pretibial edema, no calf tenderness Neuro- alert, oriented x 3; no gross focal neurologic deficits Skin- warm & dry Results & Data Results & Data Vital Signs (Past 12 Hours) Vital Signs Temp Pulse Pulse Resp BP BP Pulse Ox 05/17/23 08:14 36.4 C L 56 L 19 146/63 H 96 05/17/23 04:50 56 L 05/17/23 04:50 05/17/23 04:50 05/17/23 04:50 55 L 18 125/67 98 05/17/23 05:13 36.5 C 55 L 16 125/67 98 05/17/23 04:50 05/17/23 03:21 60 18 124/61 98 05/17/23 02:35 59 L 12 97 05/17/23 02:35 149/67 H 05/17/23 02:30 60 14 05/17/23 02:00 60 25 H 99 05/17/23 02:00 140/64 05/17/23 01:43 59 L 15 97 05/17/23 01:05 128/49 L 05/17/23 01:05 55 L 18 98 05/17/23 01:01 55 L 11 L 05/17/23 00:37 57 L 16 05/17/23 00:39 58 L 05/16/23 23:59 56 L 14 136/59 L 99 05/16/23 23:25 36.6 C 60 20 132/68 97 Pulse Ox O2 Del Method O2 Del Method 05/17/23 08:14 Room Air 05/17/23 04:50 05/17/23 04:50 Room Air 05/17/23 04:50 98 Room Air 05/17/23 04:50 Room Air 05/17/23 05:13 Room Air 05/17/23 04:50 98 Room Air 05/17/23 03:21 Room Air 05/17/23 02:35 05/17/23 02:35 05/17/23 02:30 05/17/23 02:00 05/17/23 02:00 05/17/23 01:43 05/17/23 01:05 05/17/23 01:05 05/17/23 01:01 05/17/23 00:37 05/17/23 00:39 05/16/23 23:59 Room Air 05/16/23 23:25 Room Air all noted and reviewed including below
--- NOTE | 2023-05-17 11:36 | Electrocardiogram Report ---
Test Reason : Blood Pressure : / mmHG Vent. Rate : 057 BPM Atrial Rate : 057 BPM P-R Int : 200 ms QRS Dur : 092 ms QT Int : 518 ms P-R-T Axes : 061 -09 080 degrees QTc Int : 504 ms Sinus bradycardia Prolonged QT Abnormal ECG When compared with ECG of 07-MAR-2023 12:03, Nonspecific T wave abnormality now evident in Lateral leads Confirmed by Jose Ramon Rizvi ([id number] on 05/17/2023 11:35:52 AM Referred By: REFERRED SELF Confirmed By:Greyson Rizvi
[2023-05-17] MEDS ORDERED: ACETAMINOPHEN 1,000 MG/100 ML VIAL IV STA (13:09)
[2023-05-17] MEDS ORDERED: ACETAMINOPHEN 1000 MG/100 ML IV IV ONE (13:13)
[2023-05-17] MEDS ORDERED: oxyCODONE HCL IR 5 MG TAB (IMMEDIATE RELEASE) PO STA (15:57)
[2023-05-17] MEDS: PROMETHAZINE HCL 12.5 MG in SODIUM CHLORIDE 0.9% 50 ML IV PRN (16:27)
[2023-05-17] MEDS: MIRTAZAPINE TAB 15 MG TAB PO SCH (20:36)
[2023-05-17] MEDS: LANTUS PER UNIT CHARGE SQ SCH (21:39)
[2023-05-18] MEDS: LACTULOSE SYRUP 30 GM/45 ML UDP PO SCH ×2 (03:00→03:01)
[2023-05-18] MEDS: PROMETHAZINE HCL 12.5 MG in SODIUM CHLORIDE 0.9% 50 ML IV PRN (06:35)
[2023-05-18] MEDS: PANTOprazole 40 MG TAB PO SCH ×2 (07:49→20:12)
[2023-05-18] MEDS: FINASTERIDE 5 MG TAB PO SCH (07:49)
[2023-05-18] MEDS: CEROVITE ADV FORMULA TAB PO SCH (07:49)
[2023-05-18] MEDS: ZINC SULFATE 220 MG CAPSULE PO SCH (07:49)
[2023-05-18] MEDS: rifAXIMin 550 MG TABLET PO SCH ×2 (07:49→20:11)
[2023-05-18] MEDS: ACETYLCYSTEINE 600 MG CAP PO SCH (07:49)
[2023-05-18] MEDS: CITALOPRAM 20 MG TAB PO SCH (07:49)
[2023-05-18] MEDS: ADVANCED PROBIOTIC 1250 MG CAPSULE PO SCH (07:49)
[2023-05-18] MEDS: FERROUS SULFATE 325 MG TAB PO SCH (07:49)
[2023-05-18] MEDS: allopurinoL 100 MG TAB PO SCH (07:49)
[2023-05-18] MEDS: INSULIN ASPART PER UNIT CHARGE SC SCH ×4 (07:57→21:43)
[2023-05-18] MEDS: LANTUS PER UNIT CHARGE SQ SCH ×2 (07:57→22:03)
--- NOTE | 2023-05-18 09:18 | Gastroenterology Progress Note ---
Date of Service May 18, 2023 Assessment & Plan (1) AMS (altered mental status): Plan: 72 year old male with history of FOFANA cirrhosis, MELD 17, HCC s/p embolization with no residual active tumor noted on MRI from 01/2023, EV, PHG, HE,s/p TIPS, prostate CA S/P tx and radiation proctitis, diverticulosis, T2DM admitted w/ confusion suspected HE given constipation x 1 week despite compliance with lactulose Rule out infectious etiology - Chest XR - Blood culture - Urine culture - ABD US to screen for ascites Head CT completed Lactulose at least TID, but ensure has 3-4 BM's daily Encourage nutrition Xifaxan 550 BID Call with quesitons Admission and Anticipated Discharge Date Admission Date: May 17, 2023 Subjective Feels better, several BM's. Less confusion Physical Exam Physical Exam: General- oriented x 3, not in distress, speaks in sentences with no effort or accessory muscle use Eyes- anicteric Neck- no JVD Lungs- clear breath sounds bilaterally, no rales/wheezes Heart- normal rate, regular rhythm; no murmurs Abdomen- normal bowel sounds, nondistended, soft, mild LLQ tenderness Extremities- no pretibial edema, no calf tenderness Neuro- alert, oriented x 3; no gross focal neurologic deficits, no asterixis Skin- warm & dry Results & Data Vital Signs (Past 12 Hours) Vital Signs Temp Pulse Pulse Pulse Resp BP Pulse Ox 05/18/23 07:08 36.8 C 65 18 152/62 H 96 05/18/23 02:46 36.6 C 65 18 126/56 L 98 05/17/23 22:52 36.8 C 67 18 165/68 H 97 05/17/23 23:27 63 O2 Del Method 05/18/23 07:08 Room Air 05/18/23 02:46 Room Air 05/17/23 22:52 Room Air 05/17/23 23:27
[2023-05-18 13:18] LABS: BUN Creatinine Ratio 17.2 (10-20); Calcium 8.2 mg/dl (8.6-10.3); Creatinine Clr Calc Pharmacy 56.5 ml/min; Est GFR (African American) 68.2 ml/min; Est GFR (Non-African American) 58.9 ml/min; Magnesium 1.9 mg/dl (1.7-2.4); Potassium 3.9 mmol/L (3.5-5.1)
--- NOTE | 2023-05-18 13:35 | Electrocardiogram Report ---
Test Reason : Blood Pressure : / mmHG Vent. Rate : 059 BPM Atrial Rate : 059 BPM P-R Int : 188 ms QRS Dur : 092 ms QT Int : 500 ms P-R-T Axes : 052 -24 032 degrees QTc Int : 495 ms Sinus bradycardia Septal infarct , age undetermined Abnormal ECG When compared with ECG of 17-MAY-2023 00:29, Septal infarct is now Present Confirmed by Salvador Scanlon ([id number]) on 05/18/2023 1:35:10 PM Referred By: REFERRED SELF Confirmed By:Salvador Scanlon
--- NOTE | 2023-05-18 15:01 | Hospitalist Progress Note ---
Date of Service May 18, 2023 Assessment & Plan (1) AMS (altered mental status): Plan: 1. Altered mental status Hepatic encephalopathy. History of nonalcoholic steatohepatitis, liver cirrhosis, status post transjugular intrahepatic portosystemic shunt procedure. -- improving -- increase lactulose to q2h until with BM continue Rifaximin -- check urine culture and blood cultures -- GI on board 05/18 improved (+) BMs ammonia down to 50s continue to monitor 2.Dalton liver cirrhosis. -- seems to be compensated Lasix on hold for LUCRETIA hold Lasix as patient had multiple BMs yesterday 3. LUCRETIA Chronic kidney disease, stage 3 - current creatinine of 1.5. Baseline creatinine 1.1. Getting gentle fluids. We will hold Lasix. - resolved 4. Diabetes. Continue his home Lantus. 5. Gastroesophageal reflux disease. On Protonix. 6. Pancytopenia.Monitor 7. Depression. Citalopram and Remeron. 8. Psoriasis . Has diffuse lesions. on triamcinolone prn 9.. Deep venous thrombosis prophylaxis. Sequential compression devices for now as has thrombocytopenia. Disposition lives with family PT/OT eval Admission and Anticipated Discharge Date Admission Date: May 17, 2023 Subjective ff up for hepatic enceph, etc had multiple BMs overnight resting in bed, oriented states he feels better today, tired no abdominal pain, distention no nausea no chest pain, dyspnea, palpitations, dizziness no other symptoms Review of Systems Review of Systems: all noted and negative except for above Physical Exam Physical Exam: General- oriented x 3, not in distress, speaks in sentences with no effort or accessory muscle use Eyes- anicteric Neck- no JVD Lungs- clear breath sounds bilaterally, no rales/wheezes Heart- normal rate, regular rhythm; no murmurs Abdomen- normal bowel sounds, nondistended, soft, nontender Extremities- no pretibial edema, no calf tenderness Neuro- alert, oriented x 3; no gross focal neurologic deficits Skin- warm & dry Results & Data Results & Data Vital Signs (Past 12 Hours) Vital Signs Temp Pulse Pulse Resp BP Pulse Ox O2 Del Method 05/18/23 11:30 63 05/18/23 11:14 36.9 C 57 L 14 131/60 96 Room Air 05/18/23 08:00 63 05/18/23 07:08 36.8 C 65 18 152/62 H 96 Room Air all noted and reviewed including below
[2023-05-18] MEDS: SODIUM CHLORIDE 0.9% 1000ML 1,000 ML IV SCH (20:09)
[2023-05-18] MEDS: MIRTAZAPINE TAB 15 MG TAB PO SCH (20:11)
[2023-05-19] MEDS: INSULIN ASPART PER UNIT CHARGE SC SCH ×4 (09:49→20:25)
[2023-05-19] MEDS: LANTUS PER UNIT CHARGE SQ SCH ×2 (09:49→21:39)
[2023-05-19] MEDS: PANTOprazole 40 MG TAB PO SCH ×2 (09:52→22:15)
[2023-05-19] MEDS: LACTULOSE SYRUP 30 GM/45 ML UDP PO SCH ×3 (09:52→21:40)
[2023-05-19] MEDS: FERROUS SULFATE 325 MG TAB PO SCH (09:53)
[2023-05-19] MEDS: FINASTERIDE 5 MG TAB PO SCH (09:53)
[2023-05-19] MEDS: allopurinoL 100 MG TAB PO SCH (09:53)
[2023-05-19] MEDS: ZINC SULFATE 220 MG CAPSULE PO SCH (09:53)
[2023-05-19] MEDS: ADVANCED PROBIOTIC 1250 MG CAPSULE PO SCH (09:54)
[2023-05-19] MEDS: ACETYLCYSTEINE 600 MG CAP PO SCH (09:54)
[2023-05-19] MEDS: CITALOPRAM 20 MG TAB PO SCH (09:54)
[2023-05-19] MEDS: CEROVITE ADV FORMULA TAB PO SCH (09:55)
[2023-05-19] MEDS: rifAXIMin 550 MG TABLET PO SCH ×2 (09:55→22:16)
--- NOTE | 2023-05-19 10:27 | Gastroenterology Progress Note ---
Date of Service May 19, 2023 Assessment & Plan (1) AMS (altered mental status): Plan: 72 year old male with history of FOFANA cirrhosis, MELD 17, HCC s/p embolization with no residual active tumor noted on MRI from 01/2023, EV, PHG, HE,s/p TIPS, prostate CA S/P tx and radiation proctitis, diverticulosis, T2DM admitted w/ confusion suspected HE given constipation x 1 week despite compliance with lactulose Rule out infectious etiology - Chest XR - Blood culture - Urine culture - ABD US to screen for ascites Head CT completed Lactulose at least TID, but ensure has 3-4 BM's daily even at discharge Encourage nutrition Xifaxan 550 BID Call with questions Admission and Anticipated Discharge Date Admission Date: May 17, 2023 Subjective Sitting on the bedside, much more alert and conversant this morning Physical Exam Physical Exam: Awake alert [place] x3 Heart is regular Lungs are clear Abdomen soft nontender nondistended No peripheral edema No asterixis Results & Data Vital Signs (Past 12 Hours) Vital Signs Temp Pulse Pulse Resp BP Pulse Ox O2 Del Method 05/19/23 08:10 Room Air 05/19/23 07:15 36.8 C 63 18 170/69 H 97 Room Air 05/19/23 03:30 36.8 C 67 16 142/61 H 93 Room Air 05/18/23 23:15 63 05/18/23 22:46 36.4 C L 59 L 18 146/65 H 96 Room Air
--- NOTE | 2023-05-19 10:57 | Hospitalist Progress Note ---
Date of Service May 19, 2023 Assessment & Plan (1) AMS (altered mental status): Plan: 1. Altered mental status Hepatic encephalopathy. History of nonalcoholic steatohepatitis, liver cirrhosis, status post transjugular intrahepatic portosystemic shunt procedure. -- improving -- increase lactulose to q2h until with BM continue Rifaximin -- check urine culture and blood cultures -- GI on board 05/18 improved (+) BMs ammonia down to 50s continue to monitor 05/19 continues to improve continue Lactulose 2.Dalton liver cirrhosis. -- seems to be compensated Lasix on hold for LUCRETIA hold Lasix as patient had multiple BMs 3. LUCRETIA Chronic kidney disease, stage 3 - current creatinine of 1.5. Baseline creatinine 1.1. Getting gentle fluids. We will hold Lasix. - resolved 4. Diabetes. Continue his home Lantus. 5. Gastroesophageal reflux disease. On Protonix. 6. Pancytopenia.Monitor 7. Depression. Citalopram and Remeron. 8. Psoriasis . Has diffuse lesions. on triamcinolone prn 9.. Deep venous thrombosis prophylaxis. Sequential compression devices for now as has thrombocytopenia. Disposition lives with family PT/OT eval Admission and Anticipated Discharge Date Admission Date: May 17, 2023 Subjective ff up for hep enceph, etc seen resting in bed, comfortable states he continues to feels better had 1 BM last night, none this morning no abdominal pain ,nausea, fever/chills appetite is good would like diet to be upgraded no other symptoms Review of Systems Review of Systems: all noted and negative except for above Physical Exam Physical Exam: General- oriented x 3, not in distress, speaks in sentences with no effort or accessory muscle use Eyes- anicteric Neck- no JVD Lungs- clear breath sounds bilaterally Heart- normal rate, regular rhythm; no murmurs Abdomen- normal bowel sounds, nondistended, soft, nontender Extremities- no pretibial edema, no calf tenderness Neuro- alert, oriented x 3; no gross focal neurologic deficits Skin- warm & dry Results & Data Results & Data Vital Signs (Past 12 Hours) Vital Signs Temp Pulse Pulse Resp BP Pulse Ox O2 Del Method 05/19/23 08:10 Room Air 05/19/23 07:15 36.8 C 63 18 170/69 H 97 Room Air 05/19/23 03:30 36.8 C 67 16 142/61 H 93 Room Air 05/18/23 23:15 63 all noted and reviewed including below
--- NOTE | 2023-05-19 13:20 | Pharmacy Report ---
Pharmacy Glycemic Short Note 2 - Date of Service May 19, 2023 - Glycemic Short BSG Results (Last 24 hours): 05/18/23 05/18/23 05/18/23 12:39 16:05 20:38 Glucose 137 H POC Glucose 110 H 127 H 05/19/23 05/19/23 07:40 11:39 Glucose POC Glucose 115 H 138 H OUTPATIENT ANTIDIABETIC REGIMEN: * Lantus 20 unit SQ HS * Prandin 1 mg PO TIDM HbA1c = 4.7% on 05/17/23 ASSESSMENT: 05/19/23: * BSGs well-controlled over past 48 hours w/ fasting BSG of 115 mg/dL * Received 13 units of insulin yesterday (9 units of basal and 4 units of bolus) * Do not anticipate any changes to current glycemic regimen 05/17/23: * 72 y/o M admitted for altered mental status. He has history of FOFANA cirrhosis, and type 2 diabetes managed at home on basal insulin and oral metformin. * Patient has not received any basal insulin so far but BSGs have been well controlled. * Basal insulin ordered BID starting tonight based on stress of 1 and Novolog parameters between stress of 1 and 2. * BSGs within goal so far. Continued with same parameters. PLAN FOR INPATIENT GLYCEMIC CONTROL: * Hold outpatient oral diabetes medications * Basal insulin * Lantus 0-6 units SQ BID * Bolus insulin * NovoLog per scale ACHS or Q6hrs while NPO * Goal Range: Low 120 mg/dL - High 150 mg/dL * Correction Factor: 30 mg/dL/unit * Nutritional / Prandial insulin per carb ratio of 1 unit per 10 grams CHO consumed
[2023-05-19] MEDS ORDERED: hydrALAZINE HCL 20 MG/ML VIAL IV PRN (16:12)
[2023-05-19] MEDS: MIRTAZAPINE TAB 15 MG TAB PO SCH (22:15)
[2023-05-20] MEDS: MICONAZOLE NITRATE POWDER 85 GM EXT SCH ×2 (02:25→08:29)
[2023-05-20 03:04] VITALS: TEMP 98.1; O2SAT 94
[2023-05-20 07:34] VITALS: BP 117/63
[2023-05-20] MEDS: INSULIN ASPART PER UNIT CHARGE SC SCH (08:25)
[2023-05-20] MEDS: LANTUS PER UNIT CHARGE SQ SCH (08:26)
[2023-05-20] MEDS: FERROUS SULFATE 325 MG TAB PO SCH (08:27)
[2023-05-20] MEDS: PANTOprazole 40 MG TAB PO SCH (08:27)
[2023-05-20] MEDS: allopurinoL 100 MG TAB PO SCH (08:27)
[2023-05-20] MEDS: rifAXIMin 550 MG TABLET PO SCH (08:27)
[2023-05-20] MEDS: FINASTERIDE 5 MG TAB PO SCH (08:27)
[2023-05-20] MEDS: ADVANCED PROBIOTIC 1250 MG CAPSULE PO SCH (08:27)
[2023-05-20] MEDS: ACETYLCYSTEINE 600 MG CAP PO SCH (08:27)
[2023-05-20] MEDS: CEROVITE ADV FORMULA TAB PO SCH (08:27)
[2023-05-20] MEDS: ZINC SULFATE 220 MG CAPSULE PO SCH (08:28)
[2023-05-20] MEDS: CITALOPRAM 20 MG TAB PO SCH (08:28)
[2023-05-20] MEDS ORDERED: LACTULOSE SYRUP 30 GM/45 ML UDP PO SCH (09:00)
--- NOTE | 2023-05-20 09:22 | Hospitalist Progress Note ---
Date of Service May 20, 2023 Assessment & Plan (1) AMS (altered mental status): Plan: 1. Altered mental status Hepatic encephalopathy. History of nonalcoholic steatohepatitis, liver cirrhosis, status post transjugular intrahepatic portosystemic shunt procedure. --Patient doing well with his usual lactulose regimen and rifaximin, until he got constipated, which he attributes to Ozempic and Zofran --No signs of infection identified, urine and blood cultures negative --GI consulted Lactulose increased Patient had multiple bowel movements, ammonia level normalized --We will resume usual lactulose and rifaximin regimen at home DC Ozempic and Zofran to avoid constipation 2.[place]ton liver cirrhosis. -- Well compensated Resume Lasix 3. LUCRETIA Chronic kidney disease, stage 3 -- Resolved 4. Diabetes. Continue his home Lantus. 5. Gastroesophageal reflux disease. On Protonix. 6. Pancytopenia.chronic, stable 7. Depression. Citalopram and Remeron. 8. Psoriasis . Has diffuse lesions. on triamcinolone prn 9.. Deep venous thrombosis prophylaxis. Sequential compression devices for now as has thrombocytopenia. 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 Seen resting in bed, comfortable, awake, alert, oriented x3 In good spirits States he feels much better overall No abdominal pain, fevers or chills, nausea Ambulating with no problems No other new symptoms States he is ready for discharge today Review of Systems Review of Systems: all noted and negative except for above Physical Exam Physical Exam: General- oriented x 3, not in distress, speaks in sentences with no effort or accessory muscle use Eyes- anicteric Neck- no JVD Lungs- clear breath sounds bilaterally, no rales/wheezes Heart- normal rate, regular rhythm; no murmurs Abdomen- normal bowel sounds, nondistended, soft, nontender Extremities- no pretibial edema, no calf tenderness Neuro- alert, oriented x 3; no gross focal neurologic deficits Skin- warm & dry Results & Data Results & Data Vital Signs (Past 12 Hours) Vital Signs Temp Pulse Pulse Pulse Resp BP Pulse Ox 05/20/23 07:33 36.7 C 65 18 117/63 94 05/20/23 03:00 36.7 C 64 20 124/56 L 94 05/20/23 01:53 66 05/19/23 23:00 36.9 C 67 20 140/50 L 95 O2 Del Method 05/20/23 07:33 Room Air 05/20/23 03:00 Room Air 05/20/23 01:53 05/19/23 23:00 Room Air all noted and reviewed including below
--- NOTE | 2023-05-20 09:33 | Discharge Summary ---
Discharge Summary Date of Service May 20, 2023 Notes For Next Care Provider Medication Changes From Visit None Admission HPI Per Admitting Provider HISTORY OF PRESENT ILLNESS: This is a 72-year-old male with past medical history significant for FOFANA, liver cirrhosis, status post TIPS revision, history of hepatocellular carcinoma, status post IR embolization, history of portal vein thrombosis as per records, diabetes, insulin requiring, chronic pancytopenia, baseline hemoglobin of 10, history of esophageal varices, portal hypertensive gastropathy, radiation proctitis, diverticulosis ____ pulmonary hypertension, BPH, prostate cancer, status post radiation, left renal mass, currently following with urology, who lives at home with his and son checks on him, was brought in because of altered mental status and found to have elevated ammonia. Patient currently alert, awake, and oriented to name and place, could tell his date of , could not tell today' date. He says his only complaint is nausea. Denies any headache, no dizziness, no blurred visions, no earache, no runny nose, no sore throat, no cough, no difficulty swallowing. No chest pain, no shortness of breath, no abdominal pain. Normal bladder movements. As per the patient, he has no constipation or diarrhea, but son states since he started taking Zofran on Saturday for his nausea he is getting constipated. No fever. Currently, resting comfortably, hemodynamically stable. Ammonia level is 156 in the ER. At home,when sick he walks with a walker, otherwise without support as per son. Admission Exam Per Admitting Provider GENERAL: The patient is alert and oriented x2, not in acute distress. VITAL SIGNS: Temperature 36.6, pulse 60, respiratory rate 18, blood pressure 124/61, oxygen 98% on room air. HEENT: Pupils equal, round and reactive to light. Oral mucosa moist. NECK: No JVD, no neck masses. CARDIOVASCULAR: S1 and S2 heard. Regular rate and rhythm. No murmur, no gallop. RESPIRATORY SYSTEM: Normal AP diameter. No accessory muscle use. No wheezing or crackles. ABDOMEN: Soft, bowel sounds present, nontender, no distention. CENTRAL NERVOUS SYSTEM: Alert and oriented x2. Speech is clear. No facial droop. Obeys simple commands. Moves extremities. EXTREMITIES: Trace pedal edema present. SKIN: Diffuse scaly rash seen. Principal Dx & Hospital Course #1 = Principal Diagnosis (1) AMS (altered mental status): 1. Altered mental status Hepatic encephalopathy. History of nonalcoholic steatohepatitis, liver cirrhosis, status post transjugular intrahepatic portosystemic shunt procedure. --Patient doing well with his usual lactulose regimen and rifaximin, until he got constipated, which he attributes to Ozempic and Zofran --No signs of infection identified, urine and blood cultures negative --GI consulted Lactulose increased Patient had multiple bowel movements, ammonia level normalized --We will resume usual lactulose and rifaximin regimen at home DC Ozempic and Zofran to avoid constipation 2.[place] liver cirrhosis. -- Well compensated Resume Lasix 3. LUCRETIA Chronic kidney disease, stage 3 -- Resolved 4. Diabetes. Continue his home Lantus. 5. Gastroesophageal reflux disease. On Protonix. 6. Pancytopenia.chronic, stable 7. Depression. Citalopram and Remeron. 8. Psoriasis . Has diffuse lesions. on triamcinolone prn 9.. Deep venous thrombosis prophylaxis. Sequential compression devices for now as has thrombocytopenia. Disposition PT OT recommend discharge to home Follow-up with PCP in 1 week Follow-up with air conditioning service technician scheduled Discharge Exam General- oriented x 3, not in distress, speaks in sentences with no effort or accessory muscle use Eyes- anicteric Neck- no JVD Lungs- clear breath sounds bilaterally, no rales/wheezes Heart- normal rate, regular rhythm; no murmurs Abdomen- normal bowel sounds, nondistended, soft, nontender Extremities- no pretibial edema, no calf tenderness Neuro- alert, oriented x 3; no gross focal neurologic deficits Skin- warm & dry Updated Medication List Medication Instructions Recorded Confirmed Type citalopram 10 mg tablet (Celexa) 10 mg PO QAM 03/24/20 05/17/23 History allopurinol 100 mg tablet 200 mg PO DAILY 05/16/20 05/17/23 History finasteride 5 mg tablet 5 mg PO QAM 11/03/21 05/17/23 History furosemide 20 mg tablet (Lasix) 40 mg PO QAM 11/02/22 05/17/23 History insulin glargine 100 unit/mL 20 unit subcut HS 11/05/22 05/17/23 History subcutaneous solution (Lantus U-100 Insulin) acetaminophen 325 mg tablet 650 mg PO Q8H PRN Pain 02/24/23 05/17/23 History (Tylenol) mirtazapine 30 mg tablet 30 mg PO HS 02/24/23 05/17/23 History triamcinolone acetonide 0.1 % 1 applic topical BID PRN PSORIATIC 02/24/23 05/17/23 History topical cream LESIONS WHEN NEEDED pantoprazole 40 mg tablet,delayed 40 mg PO BID 90 days #180 tabs 02/28/23 05/17/23 Rx release repaglinide 1 mg tablet 1 mg PO TIDM 03/07/23 05/17/23 History lactulose 10 gram oral packet 10 g PO BID PRN Constipation 05/14/23 05/17/23 History (Kristalose) Lactobacil.acidophilus-Bifido.animalis 1 cap PO DAILY 05/17/23 05/17/23 History 5 billion cell sprinkle capsule (Probiotic) acetylcysteine 600 mg capsule 600 mg PO DAILY 05/17/23 05/17/23 History albuterol sulfate 2.5 mg/3 mL 2.5 mg inhalation DIRECTED PRN 05/17/23 05/17/23 History (0.083 %) solution for nebulization Shortness Of Breath Or Wheezing ferrous sulfate 325 mg (65 mg 325 mg PO DAILY 05/17/23 05/17/23 History iron) tablet (iron) oykdptlknoad-prr-pvhdv acid-vit 1 tab PO DAILY 05/17/23 05/17/23 History K-lycop 400 mcg-20 mcg-370 mcg tablet (Men's 50 Plus Multivitamin) rifaximin 550 mg tablet (Xifaxan) 550 mg PO BID 05/17/23 05/17/23 History zinc acetate 50 mg (zinc) capsule 50 mg PO DAILY 05/17/23 05/17/23 History Hospital Stay Data Consultations 05/17/23 02:22 ED Decision to Admit Stat 05/17/23 08:00 Consult Gastroenterology Routine Diagnostic Imagining Performed 05/17/23 00:43 CT head/brain wo con Stat COMPARISON: No relevant prior studies available. FINDINGS: Brain: The cerebral and cerebellar sulci are mildly prominent consistent with mild brain atrophy. There are a few areas of decreased attenuation in the deep cerebral white matter consistent with mild small vessel ischemic/degenerative changes. No hemorrhage. Ventricles: Unremarkable. No ventriculomegaly. Bones/joints: Unremarkable. No acute fracture. Soft tissues: Unremarkable. Vasculature: Atherosclerotic disease. Sinuses: Unremarkable as visualized. No acute sinusitis. Mastoid air cells: Unremarkable as visualized. No mastoid effusion. IMPRESSION: No acute findings in the head/brain. Electronically signed by: Brayan Brooks MD 05/17/23 01:54 AM Pending Results Patient Have Any Pending Studies at Discharge: No Discharge Instructions Given to Patient (Per Discharging Provider) Stop Ozempic and Zofran. PLEASE CALL YOUR PRIMARY CARE PHYSICIAN OR RETURN TO THE ER IF WITH WORSENING OF SYMPTOMS, INCLUDING Confusion, drowsiness, fevers or chills, abdominal pain, etc. FOLLOW UP WITH PRIMARY CARE PHYSICIAN OUTLINED ABOVE. Total Time Total Time Spent Total Time Spent (In Minutes): >30 minutes
[2023-05-20 09:44] VITALS: PULSE 64
--- NOTE | 2023-05-20 10:13 | Gastroenterology Progress Note ---
Date of Service May 20, 2023 Assessment & Plan (1) AMS (altered mental status): Plan: Pt is a 72 year old male with history of FOFANA cirrhosis, MELD 17, HCC s/p embolization with no residual active tumor noted on MRI from 01/2023, EV, PHG, HE,s/p TIPS, prostate CA S/P tx and radiation proctitis, diverticulosis, T2DM admitted w/ confusion suspected HE given constipation x 1 week despite compliance with lactulose. He suspect constipation started after taking Ozempic. He is back to his baseline mental status, AAOx3 this AM. - Lactulose 15g TID (titrate for goal 3-5 BM daily), Xifaxan 550mg BID, Zinc supplement - Diet as tolerated but should be on 2g Na - Avoid ETOH, NSAIDs, APAP (no more than 2g daily if needed), benzodiazepines. - Repeat OP EGD scheduled for 05/22 - F/U in GI clinic on 05/28 as scheduled - Pls recall GI prn Admission and Anticipated Discharge Date Admission Date: May 17, 2023 Supervising Physician Co-Signing Physician Notes Att add: Pt with Cirrhosis, HE now with resolution of HE - he has no asterixis and is entirely lucid. Plan as above. Subjective Pt would like to go home today. Denies cp, sob, abd pain, n/v. Review of Systems Review of Systems: All systems reviewed & are unremarkable except as noted in HPI & below Physical Exam Constitutional: WD/WN, vitals as above well groomed, cooperative and comfortable Eyes: PERRL, conjunctivae normal, anicteric sclerae ENMT: external ear and nose normal, oropharynx normal Respiratory: normal respiratory effort, lungs clear to auscultation Cardiovascular: RRR, no murmur, no edema Gastrointestinal (Abdomen): normal bowel sounds, soft, nontender, no hepatosplenomegaly Skin: no rashes, warm and dry no jaundice Neurologic: Motor/Sensory: no asterixis Psychiatric: A+Ox3, euthymic affect Lymphatic: no lymphedema Results & Data Vital Signs (Past 12 Hours) Vital Signs Temp Pulse Pulse Pulse Resp BP Pulse Ox 05/20/23 09:42 36.7 C 65 64 18 117/63 94 05/20/23 09:35 66 05/20/23 07:33 36.7 C 65 18 117/63 94 05/20/23 03:00 36.7 C 64 20 124/56 L 94 05/20/23 01:53 66 05/19/23 23:00 36.9 C 67 20 140/50 L 95 O2 Del Method 05/20/23 09:42 05/20/23 09:35 05/20/23 07:33 Room Air 05/20/23 03:00 Room Air 05/20/23 01:53 05/19/23 23:00 Room Air
--- NOTE | 2023-05-20 12:56 | Electrocardiogram Report ---
Test Reason : Blood Pressure : / mmHG Vent. Rate : 058 BPM Atrial Rate : 058 BPM P-R Int : 186 ms QRS Dur : 092 ms QT Int : 500 ms P-R-T Axes : 059 -27 052 degrees QTc Int : 490 ms Sinus bradycardia with occasional Premature ventricular complexes Septal infarct (cited on or before 18-MAY-2023) Abnormal ECG When compared with ECG of 18-MAY-2023 09:41, Premature ventricular complexes are now Present Questionable change in initial forces of Septal leads Confirmed by Salvador Scanlon ([id number]) on 05/20/2023 12:55:40 PM Referred By: REFERRED SELF Confirmed By:Salvador Scanlon
== END 2023-05-20 17:37 | disposition home or self-care (01) | DRG 442 ==
LOC: ED 23:17 → 2S 05-17 03:05

== ENCOUNTER 2023-06-14 10:32 | Inpatient (IN) ==
[2023-06-14] MEDS ORDERED: SODIUM CHLORIDE 0.9% 1000ML 1,000 ML IV SCH (11:15)
[2023-06-14 11:22] LABS: Basophils # (auto) 0.01 K/uL (0-0.2); Basophils % (auto) 0.3 %; Eosinophils # (auto) 0.18 K/uL (0-0.50); Eosinophils % (auto) 4.7 %; Hematocrit (blood only) 25.3 % (42.0-52.0); Hemoglobin 8.8 g/dl (14.0-18.0); Immature Granulocytes # (auto) 0.06 K/uL (0.01-0.20); Immature Granulocytes % (auto) 1.6 %; Lymphocytes # (auto) 0.54 K/uL (1.2-3.4); Lymphocytes % (auto) 14.1 %; Mean Corpuscular Hemoglobin 32.6 pg (25.0-34.0); Mean Corpuscular Hgb Conc 34.8 g/dL (32.0-36.0); Mean Corpuscular Volume 93.7 fL (80.0-100.0); Mean Platelet Volume 10.9 fL (9.4-12.4); Monocytes % (auto) 5.2 %; Neutrophils # (auto) 2.85 K/uL (1.40-6.50); Neutrophils % (auto) 74.1 %; Platelet Count 81 K/uL (130-400); RDW Coefficient of Variation 18.2 % (11.5-14.5); RDW Standard Deviation 61.5 fL (36.4-46.3); White Blood Count 3.84 K/ul (4.8-10.8)
--- NOTE | 2023-06-14 11:25 | Emergency Department Note ---
History of Present Illness General Chief complaint: Fall Stated complaint: FALL, LOWER BACK PAIN Time Seen by Provider: 06/14/23 11:02 History of Present Illness Provider complaint: Fall back pain Onset (ago): unknown Maximum Pain Intensity: 8 73-year-old male presents emergency department for fall. Patient states he woke up this morning and was walking to get some water for his medications when he fell. Patient states he does not remember how he fell. Patient is reporting pain in his head and in his lower back. No urinary incontinence. Patient states he does not remember how long he was down for. Patient is not on any blood thinners. No chest pain or difficulty breathing. No melena or hematochezia. No hematuria or dysuria. No abdominal pain. No nausea or vomiting. Home Medications Medication Instructions Recorded Confirmed Type citalopram 10 mg tablet (Celexa) 10 mg PO QAM 03/24/20 06/14/23 History allopurinol 100 mg tablet 200 mg PO DAILY 05/16/20 06/14/23 History finasteride 5 mg tablet 5 mg PO QAM 11/03/21 06/14/23 History furosemide 20 mg tablet (Lasix) 40 mg PO QAM 11/02/22 06/14/23 History insulin glargine 100 unit/mL 20 unit subcut HS 11/05/22 06/14/23 History subcutaneous solution (Lantus U-100 Insulin) acetaminophen 325 mg tablet 650 mg PO Q8H PRN Pain 02/24/23 06/14/23 History (Tylenol) mirtazapine 30 mg tablet 30 mg PO HS 02/24/23 06/14/23 History triamcinolone acetonide 0.1 % 1 applic topical BID PRN PSORIATIC 02/24/23 06/14/23 History topical cream LESIONS WHEN NEEDED pantoprazole 40 mg tablet,delayed 40 mg PO BID 90 days #180 tabs 02/28/23 06/14/23 Rx release repaglinide 1 mg tablet 1 mg PO TIDM 03/07/23 06/14/23 History lactulose 10 gram oral packet 10 g PO BID 05/14/23 06/14/23 History (Kristalose) Lactobacil.acidophilus-Bifido.animalis 1 cap PO DAILY 05/17/23 06/14/23 History 5 billion cell sprinkle capsule (Probiotic) acetylcysteine 600 mg capsule 600 mg PO DAILY 05/17/23 06/14/23 History ferrous sulfate 325 mg (65 mg 325 mg PO DAILY 05/17/23 06/14/23 History iron) tablet (iron) xbueylyjyswr-jkn-uckwi acid-vit 1 tab PO DAILY 05/17/23 06/14/23 History K-lycop 400 mcg-20 mcg-370 mcg tablet (Men's 50 Plus Multivitamin) rifaximin 550 mg tablet (Xifaxan) 550 mg PO BID 05/17/23 06/14/23 History zinc acetate 50 mg (zinc) capsule 50 mg PO DAILY 05/17/23 06/14/23 History Allergies Allergy/AdvReac Type Severity Reaction Status Date / Time No Known Allergies Allergy Mild Verified 05/22/23 07:55 Past Med/Surg History Medical History (Updated 06/14/23 @ 17:39 by Ravindra Mars MD) Anemia of chronic disease monthly labs done Anxiety and depression CKD (chronic kidney disease) stage 3, GFR 30-59 ml/min Esophageal varices hx Fatigue on exertion/liver issues have decreased strength GAVE (gastric antral vascular ectasia) pt not sure what this is GERD (gastroesophageal reflux disease) Gout NO ISSUES CURRENTLY History of panic attacks History of recent blood transfusion 11/05/22 Hypertension hx/sometimes will read a little low. Insulin dependent type 2 diabetes mellitus Liver spots recent testing and no changes. Nonalcoholic steatohepatitis (FOFANA) Prostate cancer (11/10/20) hx radiation Psoriasis Rectal bleeding hx of T2DM (type 2 diabetes mellitus) Upper GI bleed hx of Surgical History History of abdominal paracentesis multiple--last 01/14/23 History of colonoscopy with polypectomy History of esophagogastroduodenoscopy (EGD) last 10/25 revealed grade 2 esophageal varices, grade 1 gastric varices STABLE History of left cataract surgery History of prostate biopsy malignant History of right cataract surgery History of tonsillectomy and adenoidectomy S/P TIPS (transjugular intrahepatic portosystemic shunt) Family History Father , "3/4 liver gone due to drinking" Colorectal cancer, Onset Age: 63 Mother Lung cancer Daughter Cancer cervical and thyroid cancers Ovarian cancer Other No family history of adverse response to anesthesia 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 Smoking Status: Never smoker Second Hand Exposure: No; Do You Dip or Chew Tobacco: No; Hx Alcohol Use: No Hx Substance Use: No Preferred Language: Latvian Communication Ability: Effective Visual Impairment: No Limitations Hearing Ability: Normal Saw Grinder Required: No Beliefs That Will Affect Care: None marital status: Current Living Situation: Spouse Current Living Situation Comment: is currently at 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 How many Children do You have: 6 How many Children do You have Comment: one , eldest daughter in her sleep from seizure disorder Feels Safe at Home: Yes Childhood Exposure to Second-Hand Smoke: Yes Diet Comment: "I watch my sugar, average fasting is 140 mg/dl" caffeine: Yes (cola, sugar free, decaf) during the past year weight has: remained stable Dental Care, Regularly: No Physical Activity Frequency: Does not Exercise Seatbelt Use: always Sunscreen Use: Yes Assistive Devices: Glasses and Walker Physical Exam Vital Signs Vital Signs - 24 hr 06/14/23 10:49 06/14/23 11:30 06/14/23 10:45 Temperature 36.7 C Temperature Source Oral Pulse Rate 56 L 57 L Pulse Rate from SpO2 Sensor 56 L Respiratory Rate 13 16 Respiratory Effort / Characteristics Non-Labored Spontaneous Respiratory Depth Normal Blood Pressure 144/73 H Blood Pressure Mean 96 Pulse Oximetry 96 97 95 Oxygen Delivery Method Room Air Room Air Sepsis Recent Fever Within 48 Hours No Sepsis New/Unexplained Change in Mental Status N/A Sepsis Action Taken by Nursing No Action Required 06/14/23 10:50 06/14/23 11:00 06/14/23 11:10 Temperature Temperature Source Pulse Rate 56 L 56 L 55 L Pulse Rate from SpO2 Sensor 56 L 56 L 55 L Respiratory Rate 15 13 16 Respiratory Effort / Characteristics Respiratory Depth Blood Pressure Blood Pressure Mean Pulse Oximetry 96 96 97 Oxygen Delivery Method Sepsis Recent Fever Within 48 Hours Sepsis New/Unexplained Change in Mental Status Sepsis Action Taken by Nursing 06/14/23 11:17 06/14/23 11:17 06/14/23 11:20 Temperature Temperature Source Pulse Rate 55 L 56 L Pulse Rate from SpO2 Sensor 55 L 52 L Respiratory Rate 18 15 Respiratory Effort / Characteristics Respiratory Depth Blood Pressure 112/69 Blood Pressure Mean 80 Pulse Oximetry 99 97 Oxygen Delivery Method Sepsis Recent Fever Within 48 Hours Sepsis New/Unexplained Change in Mental Status Sepsis Action Taken by Nursing 06/14/23 12:12 06/14/23 11:30 06/14/23 11:30 Temperature Temperature Source Pulse Rate 56 L 56 L Pulse Rate from SpO2 Sensor 56 L Respiratory Rate 21 Respiratory Effort / Characteristics Respiratory Depth Blood Pressure 110/63 Blood Pressure Mean 84 Pulse Oximetry 97 Oxygen Delivery Method Sepsis Recent Fever Within 48 Hours Sepsis New/Unexplained Change in Mental Status Sepsis Action Taken by Nursing 06/14/23 12:07 06/14/23 12:10 06/14/23 12:20 Temperature Temperature Source Pulse Rate 57 L 56 L 56 L Pulse Rate from SpO2 Sensor 57 L 56 L 56 L Respiratory Rate 15 14 14 Respiratory Effort / Characteristics Respiratory Depth Blood Pressure Blood Pressure Mean Pulse Oximetry 94 96 95 Oxygen Delivery Method Sepsis Recent Fever Within 48 Hours Sepsis New/Unexplained Change in Mental Status Sepsis Action Taken by Nursing 06/14/23 12:30 06/14/23 12:30 06/14/23 12:40 Temperature Temperature Source Pulse Rate 55 L 57 L Pulse Rate from SpO2 Sensor 55 L 56 L Respiratory Rate 14 23 Respiratory Effort / Characteristics Respiratory Depth Blood Pressure 133/72 Blood Pressure Mean 119 Pulse Oximetry 95 95 Oxygen Delivery Method Sepsis Recent Fever Within 48 Hours Sepsis New/Unexplained Change in Mental Status Sepsis Action Taken by Nursing 06/14/23 12:50 06/14/23 13:00 06/14/23 13:00 Temperature Temperature Source Pulse Rate 60 58 L Pulse Rate from SpO2 Sensor 54 L 58 L Respiratory Rate 16 14 Respiratory Effort / Characteristics Respiratory Depth Blood Pressure 134/60 Blood Pressure Mean 92 Pulse Oximetry 98 97 Oxygen Delivery Method Sepsis Recent Fever Within 48 Hours Sepsis New/Unexplained Change in Mental Status Sepsis Action Taken by Nursing 06/14/23 13:10 06/14/23 13:20 06/14/23 13:30 Temperature Temperature Source Pulse Rate 58 L 56 L Pulse Rate from SpO2 Sensor 55 L 56 L Respiratory Rate 16 22 Respiratory Effort / Characteristics Respiratory Depth Blood Pressure 120/53 L Blood Pressure Mean 84 Pulse Oximetry 98 98 Oxygen Delivery Method Sepsis Recent Fever Within 48 Hours Sepsis New/Unexplained Change in Mental Status Sepsis Action Taken by Nursing 06/14/23 13:30 06/14/23 13:40 06/14/23 13:50 Temperature Temperature Source Pulse Rate 56 L 59 L 57 L Pulse Rate from SpO2 Sensor 56 L 55 L 57 L Respiratory Rate 16 19 14 Respiratory Effort / Characteristics Respiratory Depth Blood Pressure Blood Pressure Mean Pulse Oximetry 98 99 100 Oxygen Delivery Method Sepsis Recent Fever Within 48 Hours Sepsis New/Unexplained Change in Mental Status Sepsis Action Taken by Nursing 06/14/23 14:00 06/14/23 14:00 06/14/23 14:10 Temperature Temperature Source Pulse Rate 60 60 Pulse Rate from SpO2 Sensor 48 L 53 L Respiratory Rate 17 16 Respiratory Effort / Characteristics Respiratory Depth Blood Pressure 113/42 L Blood Pressure Mean 60 Pulse Oximetry 99 99 Oxygen Delivery Method Sepsis Recent Fever Within 48 Hours Sepsis New/Unexplained Change in Mental Status Sepsis Action Taken by Nursing 06/14/23 14:20 06/14/23 14:30 06/14/23 14:30 Temperature Temperature Source Pulse Rate 57 L 58 L Pulse Rate from SpO2 Sensor 55 L 58 L Respiratory Rate 12 12 Respiratory Effort / Characteristics Respiratory Depth Blood Pressure 113/68 Blood Pressure Mean 90 Pulse Oximetry 100 99 Oxygen Delivery Method Sepsis Recent Fever Within 48 Hours Sepsis New/Unexplained Change in Mental Status Sepsis Action Taken by Nursing 06/14/23 14:40 06/14/23 14:50 06/14/23 15:00 Temperature Temperature Source Pulse Rate 63 60 Pulse Rate from SpO2 Sensor 63 54 L Respiratory Rate 16 12 Respiratory Effort / Characteristics Respiratory Depth Blood Pressure 128/64 Blood Pressure Mean 98 Pulse Oximetry 96 100 Oxygen Delivery Method Sepsis Recent Fever Within 48 Hours Sepsis New/Unexplained Change in Mental Status Sepsis Action Taken by Nursing 06/14/23 15:00 06/14/23 15:10 06/14/23 15:20 Temperature Temperature Source Pulse Rate 60 60 60 Pulse Rate from SpO2 Sensor 58 L 55 L 58 L Respiratory Rate 12 16 15 Respiratory Effort / Characteristics Respiratory Depth Blood Pressure Blood Pressure Mean Pulse Oximetry 97 97 95 Oxygen Delivery Method Sepsis Recent Fever Within 48 Hours Sepsis New/Unexplained Change in Mental Status Sepsis Action Taken by Nursing 06/14/23 15:30 06/14/23 15:30 06/14/23 15:40 Temperature Temperature Source Pulse Rate 60 63 Pulse Rate from SpO2 Sensor 58 L 63 Respiratory Rate 16 14 Respiratory Effort / Characteristics Respiratory Depth Blood Pressure 137/63 Blood Pressure Mean 98 Pulse Oximetry 96 96 Oxygen Delivery Method Sepsis Recent Fever Within 48 Hours Sepsis New/Unexplained Change in Mental Status Sepsis Action Taken by Nursing 06/14/23 15:50 06/14/23 16:16 Temperature Temperature Source Pulse Rate 63 60 Pulse Rate from SpO2 Sensor 60 Respiratory Rate 14 Respiratory Effort / Characteristics Respiratory Depth Blood Pressure Blood Pressure Mean Pulse Oximetry 98 Oxygen Delivery Method Sepsis Recent Fever Within 48 Hours Sepsis New/Unexplained Change in Mental Status Sepsis Action Taken by Nursing Physical Exam HENT: Exam performed. - Head: Normocephalic and atraumatic. - Right Ear: External ear normal. No mastoid erythema - Left Ear: External ear normal. No mastoid erythema - Mouth/Throat: The oropharynx is clear and moist. No trismus in the jaw. No dental abscesses or uvula swelling. No oropharyngeal exudate or tonsillar abscesses. EYES: Conjunctivae and EOM are normal. Pupils are equal, round, and reactive to light. Right eye exhibits no discharge. Left eye exhibits no discharge. scleral icterus. NECK: Normal range of motion. Neck supple. No JVD present. No spinous process tenderness present. No tracheal deviation and normal range of motion present. CV: Normal rate, regular rhythm, normal heart sounds and intact distal pulses. There is no peripheral edema. Palpable radial pulses bue. PULM/CHEST: Effort normal and breath sounds normal. No respiratory distress. No stridor. He has no wheezes. He has no rales. ABD: The abdomen is soft. There is no tenderness. There is no rebound, no guarding. MUSC/SKEL: Pelvis stable. No C or T-spine tenderness to palpation. Pain on palpation of the L-spine reproducing chief complaint. NEURO: He is alert and oriented to person and place but not to time. He has normal strength. No cranial nerve deficit or sensory deficit. SKIN: Jaundiced Course Course 1102: The patient was evaluated in room B3. A complete history and physical exam was performed Cardiac monitoring: An order was placed for continuous cardiac monitoring. The monitor shows a rate of 50 with sinus rhythm interpreted by me 1315: Vital signs stable.Labs show white blood cell count 3.84 hemoglobin 8.8. Platelet count 81. Coagulation studies are within normal limits. VBG within normal limits. Bilirubin elevated at 4.3. AST 49 ALT 27. Alkaline phosphatase 165. Troponin negative. Ammonia within normal limits. Lipase within normal limits. Imaging shows no traumatic injuries. Patient be admitted to the [facility] hospitalist team for syncope. Administered Medications Sodium Chloride (Nss 1000ml) 1,000 mls @ 125 mls/hr IV .Q8H JODI Stop: 07/14/23 11:14 Last Admin: 06/14/23 12:09 Dose: 125 mls/hr Documented By: RADHA Discontinued Medications Diazepam (Diazepam 2 Mg Tablet) 2 mg PO NOW ONE Stop: 06/14/23 17:01 Last Admin: 06/14/23 17:13 Dose: 2 mg Documented By: VERO Ketorolac Tromethamine (Ketorolac Tromethamine 15 Mg/Ml Vial) 15 mg IV NOW STA Stop: 06/14/23 14:09 Last Admin: 06/14/23 14:18 Dose: 15 mg Documented By: RADHA Medical Decision Making Laboratory Data Attestation: I reviewed the patient's lab results. 06/14/23 10:55 06/14/23 10:55 Lab Results 06/14/23 06/14/23 06/14/23 Range/Units 10:55 10:55 10:55 WBC 3.84 L (4.8-10.8) K/ul RBC 2.70 L (4.70-6.10) M/uL Hgb 8.8 L (14.0-18.0) g/dl Hct 25.3 L (42.0-52.0) % MCV 93.7 (80.0-100.0) fL MCH 32.6 (25.0-34.0) pg MCHC 34.8 (32.0-36.0) g/dL RDW Std Deviation 61.5 H (36.4-46.3) fL RDW Coeff of Violetta 18.2 H (11.5-14.5) % Plt Count 81 L (130-400) K/uL MPV 10.9 (9.4-12.4) fL Immature Gran % (Auto) 1.6 % Neut % (Auto) 74.1 % Lymph % (Auto) 14.1 % [place] % (Auto) 5.2 % Eos % (Auto) 4.7 % Baso % (Auto) 0.3 % Neut # (Auto) 2.85 (1.40-6.50) K/uL Lymph # (Auto) 0.54 L (1.2-3.4) K/uL [place] # (Auto) 0.20 (0.11-0.59) K/uL Eos # (Auto) 0.18 (0-0.50) K/uL Baso # (Auto) 0.01 (0-0.2) K/uL Immature Gran # (Auto) 0.06 (0.01-0.20) K/uL PT Cancelled INR Cancelled APTT Cancelled PTT Ratio Cancelled VBG pH (7.36-7.41) VBG pCO2 (38-50) mmHg VBG pO2 mmHg VBG HCO3 mmol/L VBG O2 Saturation % VBG Base Excess mEq/L Sodium 140 (136-145) mmol/L Potassium 3.8 (3.5-5.1) mmol/L Chloride 111 H (98-107) mmol/L Carbon Dioxide 22 (21-32) mmol/L Anion Gap 7 (3-11) BUN 27 H (6-23) mg/dl Creatinine 1.27 (0.6-1.4) mg/dl Est Cr Clr Drug Dosing 53.5 ml/min Est GFR ( Amer) 64.5 ml/min Est GFR (Non-Af Amer) 55.7 ml/min BUN/Creatinine Ratio 21.3 H (10-20) Glucose 140 H (70-99(Fasting)) mg/dl Calcium 8.5 L (8.6-10.3) mg/dl Magnesium 1.7 (1.7-2.4) mg/dl Total Bilirubin 4.3 H (0.2-1.0) mg/dl AST 49 H (13-39) U/L ALT 27 (7-52) U/L Alkaline Phosphatase 165 H (34-104) U/L Ammonia (18-72) umol/L Total Creatine Kinase 79 (30-223) U/L Troponin I High Sens 5.2 (0-20) pg/ml Total Protein 6.4 (6.0-8.3) gm/dl Albumin 3.0 L (3.4-5.0) gm/dl Globulin 3.4 (2.5-4.0) gm/dl Albumin/Globulin Ratio 0.9 (0.9-2) Lipase 36 (11-82) U/L Urine Color Urine Appearance (Clear) Urine pH (4.5-7.5) Ur Specific [place] (1.000-1.030) Urine Protein (Negative) Urine Glucose (UA) (Negative) Urine Ketones (Negative) Urine Blood (Negative) Urine Nitrite (Negative) Urine Bilirubin (Negative) Urine Urobilinogen (Negative) Ur Leukocyte Esterase (Negative) Urine WBC (Auto) (0-5) /hpf Urine RBC (Auto) (0-4) /hpf U Hyaline Cast (Auto) (0-5) /lpf U Epithel Cells (Auto) (0-5) /lpf Urine Bacteria (Auto) (Negative) Salicylates (3.0-30) mg/dl Acetaminophen (10-30) ug/ml Ethyl Alcohol mg/dL (<10.0) mg/dl SARS-CoV-2, RNA, NAAT (NEGATIVE) 06/14/23 06/14/23 06/14/23 Range/Units 10:55 11:35 12:09 WBC (4.8-10.8) K/ul RBC (4.70-6.10) M/uL Hgb (14.0-18.0) g/dl Hct (42.0-52.0) % MCV (80.0-100.0) fL MCH (25.0-34.0) pg MCHC (32.0-36.0) g/dL RDW Std Deviation (36.4-46.3) fL RDW Coeff of Violetta (11.5-14.5) % Plt Count (130-400) K/uL MPV (9.4-12.4) fL Immature Gran % (Auto) % Neut % (Auto) % Lymph % (Auto) % [place] % (Auto) % Eos % (Auto) % Baso % (Auto) % Neut # (Auto) (1.40-6.50) K/uL Lymph # (Auto) (1.2-3.4) K/uL [place] # (Auto) (0.11-0.59) K/uL Eos # (Auto) (0-0.50) K/uL Baso # (Auto) (0-0.2) K/uL Immature Gran # (Auto) (0.01-0.20) K/uL PT INR APTT PTT Ratio VBG pH (7.36-7.41) VBG pCO2 (38-50) mmHg VBG pO2 mmHg VBG HCO3 mmol/L VBG O2 Saturation % VBG Base Excess mEq/L Sodium (136-145) mmol/L Potassium (3.5-5.1) mmol/L Chloride (98-107) mmol/L Carbon Dioxide (21-32) mmol/L Anion Gap (3-11) BUN (6-23) mg/dl Creatinine (0.6-1.4) mg/dl Est Cr Clr Drug Dosing ml/min Est GFR ( Amer) ml/min Est GFR (Non-Af Amer) ml/min BUN/Creatinine Ratio (10-20) Glucose (70-99(Fasting)) mg/dl Calcium (8.6-10.3) mg/dl Magnesium (1.7-2.4) mg/dl Total Bilirubin (0.2-1.0) mg/dl AST (13-39) U/L ALT (7-52) U/L Alkaline Phosphatase (34-104) U/L Ammonia 69.0 (18-72) umol/L Total Creatine Kinase (30-223) U/L Troponin I High Sens (0-20) pg/ml Total Protein (6.0-8.3) gm/dl Albumin (3.4-5.0) gm/dl Globulin (2.5-4.0) gm/dl Albumin/Globulin Ratio (0.9-2) Lipase (11-82) U/L Urine Color Urine Appearance (Clear) Urine pH (4.5-7.5) Ur Specific [place] (1.000-1.030) Urine Protein (Negative) Urine Glucose (UA) (Negative) Urine Ketones (Negative) Urine Blood (Negative) Urine Nitrite (Negative) Urine Bilirubin (Negative) Urine Urobilinogen (Negative) Ur Leukocyte Esterase (Negative) Urine WBC (Auto) (0-5) /hpf Urine RBC (Auto) (0-4) /hpf U Hyaline Cast (Auto) (0-5) /lpf U Epithel Cells (Auto) (0-5) /lpf Urine Bacteria (Auto) (Negative) Salicylates < 3.0 L (3.0-30) mg/dl Acetaminophen < 3 L (10-30) ug/ml Ethyl Alcohol mg/dL < 10.0 (<10.0) mg/dl SARS-CoV-2, RNA, NAAT (NEGATIVE) 06/14/23 06/14/23 06/14/23 Range/Units 12:09 12:09 13:05 WBC (4.8-10.8) K/ul RBC (4.70-6.10) M/uL Hgb (14.0-18.0) g/dl Hct (42.0-52.0) % MCV (80.0-100.0) fL MCH (25.0-34.0) pg MCHC (32.0-36.0) g/dL RDW Std Deviation (36.4-46.3) fL RDW Coeff of Violetta (11.5-14.5) % Plt Count (130-400) K/uL MPV (9.4-12.4) fL Immature Gran % (Auto) % Neut % (Auto) % Lymph % (Auto) % [place] % (Auto) % Eos % (Auto) % Baso % (Auto) % Neut # (Auto) (1.40-6.50) K/uL Lymph # (Auto) (1.2-3.4) K/uL [place] # (Auto) (0.11-0.59) K/uL Eos # (Auto) (0-0.50) K/uL Baso # (Auto) (0-0.2) K/uL Immature Gran # (Auto) (0.01-0.20) K/uL PT 13.0 H INR 1.2 H APTT 29.3 PTT Ratio 1.0 VBG pH 7.42 H (7.36-7.41) VBG pCO2 34 L (38-50) mmHg VBG pO2 44 mmHg VBG HCO3 22 mmol/L VBG O2 Saturation 74.2 % VBG Base Excess -2.0 mEq/L Sodium (136-145) mmol/L Potassium (3.5-5.1) mmol/L Chloride (98-107) mmol/L Carbon Dioxide (21-32) mmol/L Anion Gap (3-11) BUN (6-23) mg/dl Creatinine (0.6-1.4) mg/dl Est Cr Clr Drug Dosing ml/min Est GFR ( Amer) ml/min Est GFR (Non-Af Amer) ml/min BUN/Creatinine Ratio (10-20) Glucose (70-99(Fasting)) mg/dl Calcium (8.6-10.3) mg/dl Magnesium (1.7-2.4) mg/dl Total Bilirubin (0.2-1.0) mg/dl AST (13-39) U/L ALT (7-52) U/L Alkaline Phosphatase (34-104) U/L Ammonia (18-72) umol/L Total Creatine Kinase (30-223) U/L Troponin I High Sens (0-20) pg/ml Total Protein (6.0-8.3) gm/dl Albumin (3.4-5.0) gm/dl Globulin (2.5-4.0) gm/dl Albumin/Globulin Ratio (0.9-2) Lipase (11-82) U/L Urine Color [place] Urine Appearance Clear (Clear) Urine pH 5.5 (4.5-7.5) Ur Specific [place] 1.022 (1.000-1.030) Urine Protein Negative (Negative) Urine Glucose (UA) Negative (Negative) Urine Ketones Negative (Negative) Urine Blood 3+ H (Negative) Urine Nitrite Positive A (Negative) Urine Bilirubin Negative (Negative) Urine Urobilinogen Negative (Negative) Ur Leukocyte Esterase Negative (Negative) Urine WBC (Auto) 1-5 (0-5) /hpf Urine RBC (Auto) 10-30 H (0-4) /hpf U Hyaline Cast (Auto) 1-5 (0-5) /lpf U Epithel Cells (Auto) 0-5 (0-5) /lpf Urine Bacteria (Auto) Negative (Negative) Salicylates (3.0-30) mg/dl Acetaminophen (10-30) ug/ml Ethyl Alcohol mg/dL (<10.0) mg/dl SARS-CoV-2, RNA, NAAT (NEGATIVE) 06/14/23 06/14/23 Range/Units 13:20 15:00 WBC (4.8-10.8) K/ul RBC (4.70-6.10) M/uL Hgb (14.0-18.0) g/dl Hct (42.0-52.0) % MCV (80.0-100.0) fL MCH (25.0-34.0) pg MCHC (32.0-36.0) g/dL RDW Std Deviation (36.4-46.3) fL RDW Coeff of [place] (11.5-14.5) % Plt Count (130-400) K/uL MPV (9.4-12.4) fL Immature Gran % (Auto) % Neut % (Auto) % Lymph % (Auto) % [place] % (Auto) % Eos % (Auto) % Baso % (Auto) % Neut # (Auto) (1.40-6.50) K/uL Lymph # (Auto) (1.2-3.4) K/uL [place] # (Auto) (0.11-0.59) K/uL Eos # (Auto) (0-0.50) K/uL Baso # (Auto) (0-0.2) K/uL Immature Gran # (Auto) (0.01-0.20) K/uL PT INR APTT PTT Ratio VBG pH (7.36-7.41) VBG pCO2 (38-50) mmHg VBG pO2 mmHg VBG HCO3 mmol/L VBG O2 Saturation % VBG Base Excess mEq/L Sodium (136-145) mmol/L Potassium (3.5-5.1) mmol/L Chloride (98-107) mmol/L Carbon Dioxide (21-32) mmol/L Anion Gap (3-11) BUN (6-23) mg/dl Creatinine (0.6-1.4) mg/dl Est Cr Clr Drug Dosing ml/min Est GFR ( Amer) ml/min Est GFR (Non-Af Amer) ml/min BUN/Creatinine Ratio (10-20) Glucose (70-99(Fasting)) mg/dl Calcium (8.6-10.3) mg/dl Magnesium (1.7-2.4) mg/dl Total Bilirubin (0.2-1.0) mg/dl AST (13-39) U/L ALT (7-52) U/L Alkaline Phosphatase (34-104) U/L Ammonia (18-72) umol/L Total Creatine Kinase (30-223) U/L Troponin I High Sens 6.5 (0-20) pg/ml Total Protein (6.0-8.3) gm/dl Albumin (3.4-5.0) gm/dl Globulin (2.5-4.0) gm/dl Albumin/Globulin Ratio (0.9-2) Lipase (11-82) U/L Urine Color Urine Appearance (Clear) Urine pH (4.5-7.5) Ur Specific [place] (1.000-1.030) Urine Protein (Negative) Urine Glucose (UA) (Negative) Urine Ketones (Negative) Urine Blood (Negative) Urine Nitrite (Negative) Urine Bilirubin (Negative) Urine Urobilinogen (Negative) Ur Leukocyte Esterase (Negative) Urine WBC (Auto) (0-5) /hpf Urine RBC (Auto) (0-4) /hpf U Hyaline Cast (Auto) (0-5) /lpf U Epithel Cells (Auto) (0-5) /lpf Urine Bacteria (Auto) (Negative) Salicylates (3.0-30) mg/dl Acetaminophen (10-30) ug/ml Ethyl Alcohol mg/dL (<10.0) mg/dl SARS-CoV-2, RNA, NAAT NEGATIVE (NEGATIVE) Imaging Data Attestation: I personally reviewed and interpreted this imaging study as follows: My Impression: Chest x-ray negative. Airway clear. No pneumothorax. No consolidation. No cardiomegaly or cephalization.. No free air under the diaphragm. No fractures of the skeletal structures. Radiologist's Impression: Cervical Spine CT 06/14/23 11:10 CT cervical spine wo con CT DOSE: 1149.88 mGy.cm CLINICAL HISTORY: 73 years-old Male with fall. Acute neck injury status post fall COMPARISON: Head CT of same day TECHNIQUE: Multiple axial CT images of the cervical spine were obtained without contrast. A dose lowering technique was utilized adhering to the principles of ALARA. FINDINGS: Multilevel degenerative changes. No acute fracture or subluxation. Minimal superior endplate compression at T1 is likely chronic. The cervical soft tissues appear unremarkable. The visualized lung apices appear clear. IMPRESSION: No acute cervical spine fracture or subluxation. ACT 112: Negative or not required by law. The above report was generated using voice recognition software. It may contain grammatical, syntax or spelling errors. Electronically signed by: Yovany Gonzalez M.D. 06/14/2023 12:38 PM Chest X-Ray 06/14/23 11:10 XR chest 1V not portable HISTORY: 73 years-old Male fall acute chest trauma status post fall COMPARISON: Acute abdominal series radiographs 05/17/2023 TECHNIQUE: AP view of the chest FINDINGS: Cardiac mediastinal and hilar silhouettes are unchanged. Vascular graft projects over the medial right lung base. No pneumothorax, pleural effusion, airspace consolidation or pulmonary edema. Degenerative changes of the shoulders and spine. IMPRESSION: No acute process. ACT 112: Negative or not required by law. The above report was generated using voice recognition software. It may contain grammatical, syntax or spelling errors. Electronically signed by: Yovany Gonzalez M.D. 06/14/2023 12:[address] 06/14/23 11:10 CT head/brain wo con CLINICAL HISTORY: fall Technique: Contiguous axial CT images of the head were acquired from the base of the skull to the vertex without intravenous contrast administration. Images were viewed in brain, subdural and bone windows. Automated dose lowering techniques and/or adjustment according to patient size were utilized for this exam. Comparison: Comparison is made to CT head 05/17/2023 Findings: The ventricles, basal cisterns, and cerebral sulci are normal. There is no acute intracranial hemorrhage or evidence of acute territorial infarction. Neither mass effect, shift of the midline structures, nor abnormal extra-axial fluid collections are shown. Left maxillary mucous retention cyst is seen. The orbits appear normal. There are no acute fractures of the calvaria or scalp swelling. Impression: No acute intracranial hemorrhage, no evidence of acute territorial infarction or other acute intracranial disease process. ACT 112: Negative or not required by law. Electronically signed by: Arik Flowers M.D. 06/14/2023 11:59 AM Lumbar Spine X-Ray 06/14/23 11:10 XR lumbar spine min 4V routine CLINICAL HISTORY: fall TECHNIQUE: 5 views of the lumbar spine were obtained. Comparison: Comparison is made to CT abdomen pelvis 02/25/2023 FINDINGS: There is no evidence of an acute fracture. Mild loss of height of L1 is unchanged. Degenerative changes are seen in the lumbar spine. The alignment is normal. Masses or calcifications and stent are seen. IMPRESSION: Degenerative changes as above without acute fracture or subluxation. ACT 112: Negative or not required by law. Electronically signed by: Arik Flowers M.D. 06/14/2023 12:35 PM ECG Data Attestation: I personally reviewed and interpreted this ECG as follows: Rate (beats per minute): 55 Rhythm: + normal sinus ECG ST segments: + Normal ST segments Additional Comments: AK 200 QRS 88 QTc 495 MDM Narrative 1102: The patient was evaluated in room B3. A complete history and physical exam was performed Cardiac monitoring: An order was placed for continuous cardiac monitoring. The monitor shows a rate of 50 with sinus rhythm interpreted by me 1315: Vital signs stable.Labs show white blood cell count 3.84 hemoglobin 8.8. Platelet count 81. Coagulation studies are within normal limits. VBG within normal limits. Bilirubin elevated at 4.3. AST 49 ALT 27. Alkaline phosphatase 165. Troponin negative. Ammonia within normal limits. Lipase within normal limits. Imaging shows no traumatic injuries. [facility] Impression & Plan Syncope and collapse, Jaundice Discharge Plan Visit Data Chief Complaint: Fall Stated Complaint: FALL, LOWER BACK PAIN ED Provider: Ravindra Mars Discharge Problem: Syncope and collapse, Jaundice Patient Disposition: Admitted As Inpatient Forms Stand Alone Forms: My [facility] Prescriptions Prescriptions: No Action citalopram [Celexa] 10 mg tablet 10 mg PO QAM allopurinol 100 mg Tablet 200 mg PO DAILY Rx Instructions: PER [facility]--STILL TAKING, PER EXT MED HX--NOT ON LIST WHEN LAST FILLED. furosemide [Lasix] 20 mg Tablet 40 mg PO QAM triamcinolone acetonide 0.1 % cream 1 applic TOPICAL BID PRN (Reason: PSORIATIC LESIONS WHEN NEEDED) mirtazapine 30 mg tablet 30 mg PO HS acetaminophen [Tylenol] 325 mg Tablet 650 mg PO Q8H PRN (Reason: Pain) pantoprazole 40 mg tablet,delayed release (DR/EC) 40 mg PO BID 90 Days Qty: 180 0RF repaglinide 1 mg tablet 1 mg PO TIDM zinc acetate 50 mg (zinc) Capsule 50 mg PO DAILY ferrous sulfate [iron] 325 mg (65 mg iron) Tablet 325 mg PO DAILY acetylcysteine 600 mg Capsule 600 mg PO DAILY Xifaxan 550 mg tablet 550 mg PO BID Rx Instructions: LAST FILLED 03/06/23 FOR 30 DAYS. Men's 50 Plus Multivitamin 400-20-370 mcg Tablet 1 tab PO DAILY Probiotic 5 billion cell Capsule, Sprinkle 1 cap PO DAILY finasteride 5 mg Tablet 5 mg PO QAM insulin glargine [Lantus U-100 Insulin] 100 unit/mL solution 20 unit subcut HS lactulose [Kristalose] 10 gram packet 10 g PO BID Referrals Referrals: Francisco Cisse MD [Primary Care Provider] -
[2023-06-14 11:37] LABS: Albumin Globulin Ratio 0.9 (0.9-2); BUN Creatinine Ratio 21.3 (10-20); Bilirubin,Total 4.3 mg/dl (0.2-1.0); Calcium 8.5 mg/dl (8.6-10.3); Creatinine Clr Calc Pharmacy 53.5 ml/min; Est GFR (African American) 64.5 ml/min; Est GFR (Non-African American) 55.7 ml/min; Globulin 3.4 gm/dl (2.5-4.0); Potassium 3.8 mmol/L (3.5-5.1); Total Protein 6.4 gm/dl (6.0-8.3)
[2023-06-14 11:52] LABS: Acetaminophen < 3 ug/ml (10-30); Salicylate < 3.0 mg/dl (3.0-30)
[2023-06-14 11:53] LABS: Magnesium 1.7 mg/dl (1.7-2.4)
[2023-06-14 11:59] LABS: Troponin I High Sensitivity 5.2 pg/ml (0-20)
--- NOTE | 2023-06-14 12:01 | CT Scan Report ---
CT head/brain wo con CLINICAL HISTORY: fall Technique: Contiguous axial CT images of the head were acquired from the base of the skull to the jennifer ayana without intravenous contrast administration. Images were viewed in brain, subdural [facility]. Automated dose lowering techniques and/or adjustment according to patient size were utilized for this exam. Comparison: Comparison is made to CT head 05/17/2023 Findings: The ventricles, basal cisterns, and cerebral sulci are normal. There is no acute intracranial hemorrh age or evidence of acute territorial infarction. Neither mass effect, shift of the midline structures , nor abnormal extra-axial fluid collections are shown. Left maxillary mucous retention cyst is seen. The orbits appear normal. There are no acute fractures of the calvaria or scalp swelling. Impression: No acute intracranial hemorrhage, no evidence of acute territorial infarction or other acute intracra nial disease process. ACT 112: Negative or not required by law. Electronically signed by: Arik Flowers M.D. 06/14/2023 11:59 AM
[2023-06-14 12:20] LABS: HCO3 VBG 22 mmol/L; Oxygen Saturation VBG 74.2 %; PCO2 VBG 34 mmHg (38-50); PO2 VBG 44 mmHg; pH VBG 7.42 (7.36-7.41)
--- NOTE | 2023-06-14 12:33 | XRay Report ---
XR chest 1V not portable HISTORY: 73 years-old Male fall acute chest trauma status post fall COMPARISON: Acute abdominal series radiographs 05/17/2023 TECHNIQUE: AP view of the chest FINDINGS: Cardiac mediastinal and hilar silhouettes are unchanged. Vascular graft projects over the medial righ t lung base. No pneumothorax, pleural effusion, airspace consolidation or pulmonary edema. Degenerati ve changes of the shoulders and spine. IMPRESSION: No acute process. ACT 112: Negative or not required by law. The above report was generated using voice recognition software. It may contain grammatical, syntax o r spelling errors. Electronically signed by: Yovany Gonzalez M.D. 06/14/2023 12:32 PM
--- NOTE | 2023-06-14 12:37 | XRay Report ---
XR lumbar spine min 4V routine CLINICAL HISTORY: fall TECHNIQUE: 5 views of the lumbar spine were obtained. Comparison: Comparison is made to CT abdomen pelvis 02/25/2023 FINDINGS: There is no evidence of an acute fracture. Mild loss of height of L1 is unchanged. Degenerative cummins es are seen in the lumbar spine. The alignment is normal. Masses or calcifications and stent are seen . IMPRESSION: Degenerative changes as above without acute fracture or subluxation. ACT 112: Negative or not required by law. Electronically signed by: Arik Flowers M.D. 06/14/2023 12:35 PM
--- NOTE | 2023-06-14 12:39 | CT Scan Report ---
CT cervical spine wo con CT DOSE: 1149.88 mGy.cm CLINICAL HISTORY: 73 years-old Male with fall. Acute neck injury status post fall COMPARISON: Head CT of same day TECHNIQUE: Multiple axial CT images of the cervical spine were obtained without contrast. A dose low ering technique was utilized adhering to the principles of ALARA. FINDINGS: Multilevel degenerative changes. No acute fracture or subluxation. Minimal superior endplat e compression at T1 is likely chronic. The cervical soft tissues appear unremarkable. The visualized lung apices appear clear. IMPRESSION: No acute cervical spine fracture or subluxation. ACT 112: Negative or not required by law. The above report was generated using voice recognition software. It may contain grammatical, syntax o r spelling errors. Electronically signed by: Yovany Gonzalez M.D. 06/14/2023 12:38 PM
[2023-06-14 12:58] LABS: INR 1.2 (0.9-1.1); Partial Thromboplastin Time 29.3 Seconds (21.0-31.0)
[2023-06-14 13:47] LABS: Appearance Urine Clear (Clear); Bacteria Urine Automated Negative (Negative); Bilirubin Urine Negative (Negative); Blood Urine 3+ (Negative); Color Urine Orange; Epithelial Cell Urine Auto 0-5 /lpf (0-5); Glucose Urine UA Negative (Negative); Ketones Urine Negative (Negative); Leukocyte Esterase Urine Negative (Negative); Nitrite Urine Positive (Negative); Protein Urine Negative (Negative); Specific Gravity Urine 1.022 (1.000-1.030); Urobilinogen Urine Negative (Negative); pH Urine 5.5 (4.5-7.5)
--- NOTE | 2023-06-14 14:04 | History & Physical Report ---
Date of Service June 14, 2023 Assessment & Plan (1) Fall: Plan: ?Syncope Patient is 73-year-old male with PMH DM II, CKD III, FOFANA, cirrhosis s/p TIPS, esophageal varices, gastric antral vascular ectasia, portal vein thrombosis, hepatocellular carcinoma, pancytopenia, restrictive lung disease, psoriasis, prostate cancer, left renal mass presented to ER after unwitnessed fall this morning. able to get to patient quickly after fall. No reported seizure like activity, CP, SOB, dizziness DDX: orthostatic hypotension, arrhythmia, symptomatic bradycardia, mechanical fall, seizure CT Head: No acute intracranial abnormality CT C-spine: No acute cervical spine fracture or subluxation. HS troponin negative x 2. EKG sinus bradycardia Orthostatics Fall precautions Monitor on telemetry CBC, CMP in am (2) Back pain: Plan: Lumbar back pain after fall L spine X-ray: degenerative changes as above without acute fracture or subluxation. 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 Baseline 1.2-1.3 Monitor renal functions, avoid nephrotoxic agents when possible (6) Pancytopenia: Plan: Chronic pancytopenia secondary to cirrhosis Hgb: 8.8. Baseline~9-10 Plt: 81 baseline 80s-110 No reported bleeding Monitor CBC Continue iron supplement (7) Prostate cancer: Plan: S/p radiation 2020 (8) Depression: Plan: Continue citalopram, mirtazapine DVT Prophylaxis SCDs Full Code as per discussion with pt Follows with Dr Cisse for routine care Pt was seen and care coordinated with Dr Delaney. See addendum I spent a total of 79 minutes reviewing notes, outpatient records, labs, medication, coordinating, documenting and providing care for this patient excluding time spent in the performance of separately billed services. History of Present Illness Chief Complaint: Fall Primary Care Provider: Francisco Cisse MD Patient is 73-year-old male with PMH DM II, CKD III, FOFANA, cirrhosis s/p TIPS, esophageal varices, gastric antral vascular ectasia, portal vein thrombosis, hepatocellular carcinoma, pancytopenia, restrictive lung disease, psoriasis, prostate cancer, left renal mass presented to ER with complaint of fall today. Patient states this morning woke up and was feeling well. He states that he was walking to get a drink to take his morning medications. States the next thing he remembers is being on the floor. Patient's was sleeping in recliner in next room and heard fall and got patient quickly. There was no report patient was unconscious or seizure-like activity. Patient states try to get off floor however was having low back pain. EMS arrived and transported patient to ER. Patient states was not having any chest pain, shortness of breath or dizziness this morning prior to fall. Reports last fall was 6 months ago and that was when he was lifting his leg and lost his balance. He states he sometimes uses walker throughout the house. This morning he was using his walker when he fell. Denies loss control of bowel or bladder. Patient's current complaint is low back pain with movement. Denies any pain at rest. Denies upper extremity or lower extremity pain, denies headache, dizziness, vision changes, neck pain or any other known injury. Patient with history of ascites requiring paracentesis. He reports he has been doing well and last paracentesis approximately 6 to 7 months ago. Denies any recent increased lower extremity or abdominal edema. Denies fever/chills, diaphoresis, N/V/D/C, melena, hematochezia, CP, SOB, orthopnea, palpitations, cough, sore throat, rhinorrhea, abdominal pain, paresthesias, extremity weakness, rashes, urinary symptoms. Allergies Allergy/AdvReac Type Severity Reaction Status Date / Time No Known Allergies Allergy Mild Verified 05/22/23 07:55 Home Medications Medication Instructions Recorded Confirmed Type citalopram 10 mg tablet (Celexa) 10 mg PO QAM 03/24/20 06/14/23 History allopurinol 100 mg tablet 200 mg PO DAILY 05/16/20 06/14/23 History finasteride 5 mg tablet 5 mg PO QAM 11/03/21 06/14/23 History furosemide 20 mg tablet (Lasix) 40 mg PO QAM 11/02/22 06/14/23 History insulin glargine 100 unit/mL 20 unit subcut HS 11/05/22 06/14/23 History subcutaneous solution (Lantus U-100 Insulin) acetaminophen 325 mg tablet 650 mg PO Q8H PRN Pain 02/24/23 06/14/23 History (Tylenol) mirtazapine 30 mg tablet 30 mg PO HS 02/24/23 06/14/23 History triamcinolone acetonide 0.1 % 1 applic topical BID PRN PSORIATIC 02/24/23 06/14/23 History topical cream LESIONS WHEN NEEDED pantoprazole 40 mg tablet,delayed 40 mg PO BID 90 days #180 tabs 02/28/23 06/14/23 Rx release repaglinide 1 mg tablet 1 mg PO TIDM 03/07/23 06/14/23 History lactulose 10 gram oral packet 10 g PO BID 05/14/23 06/14/23 History (Kristalose) Lactobacil.acidophilus-Bifido.animalis 1 cap PO DAILY 05/17/23 06/14/23 History 5 billion cell sprinkle capsule (Probiotic) acetylcysteine 600 mg capsule 600 mg PO DAILY 05/17/23 06/14/23 History ferrous sulfate 325 mg (65 mg 325 mg PO DAILY 05/17/23 06/14/23 History iron) tablet (iron) lvdqvobtapmd-cwp-acbjl acid-vit 1 tab PO DAILY 05/17/23 06/14/23 History K-lycop 400 mcg-20 mcg-370 mcg tablet (Men's 50 Plus Multivitamin) rifaximin 550 mg tablet (Xifaxan) 550 mg PO BID 05/17/23 06/14/23 History zinc acetate 50 mg (zinc) capsule 50 mg PO DAILY 05/17/23 06/14/23 History Past Med/Surg History Medical History (Updated 06/14/23 @ 17:39 by Ravindra Mars MD) Anemia of chronic disease monthly labs done Anxiety and depression CKD (chronic kidney disease) stage 3, GFR 30-59 ml/min Esophageal varices hx Fatigue on exertion/liver issues have decreased strength GAVE (gastric antral vascular ectasia) pt not sure what this is GERD (gastroesophageal reflux disease) Gout NO ISSUES CURRENTLY History of panic attacks History of recent blood transfusion 11/05/22 Hypertension hx/sometimes will read a little low. Insulin dependent type 2 diabetes mellitus Liver spots recent testing and no changes. Nonalcoholic steatohepatitis (FOFANA) Prostate cancer (11/10/20) hx radiation Psoriasis Rectal bleeding hx of T2DM (type 2 diabetes mellitus) Upper GI bleed hx of Surgical History History of abdominal paracentesis multiple--last 01/14/23 History of colonoscopy with polypectomy History of esophagogastroduodenoscopy (EGD) last 10/25 revealed grade 2 esophageal varices, grade 1 gastric varices STABLE History of left cataract surgery History of prostate biopsy malignant History of right cataract surgery History of tonsillectomy and adenoidectomy S/P TIPS (transjugular intrahepatic portosystemic shunt) Family History Father , "3/4 liver gone due to drinking" Colorectal cancer, Onset Age: 63 Mother Lung cancer Daughter Cancer cervical and thyroid cancers Ovarian cancer Other No family history of adverse response to anesthesia 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 Smoking Status: Never smoker Second Hand Exposure: No; Do You Dip or Chew Tobacco: No; Hx Alcohol Use: No Hx Substance Use: No Preferred Language: Swedish Communication Ability: Effective Visual Impairment: No Limitations Hearing Ability: Normal Occupational Therapist'S Assistant Required: No Beliefs That Will Affect Care: None marital status: Current Living Situation: Spouse Current Living Situation Comment: is currently at [facility] 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 How many Children do You have: 6 How many Children do You have Comment: one , eldest daughter in her sleep from seizure disorder Feels Safe at Home: Yes Safety Concerns: Feels Safe At This Time Childhood Exposure to Second-Hand Smoke: Yes Diet Comment: "I watch my sugar, average fasting is 140 mg/dl" caffeine: Yes (cola, sugar free, decaf) during the past year weight has: remained stable Dental Care, Regularly: No Physical Activity Frequency: Does not Exercise Seatbelt Use: always Sunscreen Use: Yes Assistive Devices: Glasses and Walker Review of Systems Review of Systems: All systems reviewed & are unremarkable except as noted in HPI & below Physical Exam Physical Exam: General: no acute distress, chronic ill appearing, WDWN Head: normocephalic, atraumatic Eyes: PERRL, EOM's intact, conjunctiva +icterus, anicteric ENT: normal inspection external ears, nose, mucous membranes moist Neck: supple, trachea midline Lungs: clear, no respiratory distress, no wheezing/rhonchi/rales CV: RRR, no murmur, no pretibial edema Abd: normal BS, soft, non-tender Back: no discoloration, no ecchymosis, no spinous process tenderness to palpation, entire spine non-tender to palpation, +tenderness to lumbar region with rotation of trunk, Negative straight leg raise to approx 30 degress, BLE with sensation to light touch intact, pedal pushes and pulls intact bilaterally Ext: no cyanosis, no calf tenderness Neuro: A&O x 3, no focal deficits noted, normal affect Skin: warm, dry, +jaundice, +diffuse scaling plaques Results & Data Results & Data Vital Signs (Past 12 Hours) Vital Signs Temp Pulse Resp BP Pulse Ox O2 Del Method 06/14/23 13:00 58 L 14 97 06/14/23 13:00 134/60 06/14/23 12:50 60 16 98 06/14/23 12:40 57 L 23 95 06/14/23 12:30 55 L 14 95 06/14/23 12:30 133/72 06/14/23 12:20 56 L 14 95 06/14/23 12:10 56 L 14 96 06/14/23 12:07 57 L 15 94 06/14/23 11:30 56 L 21 97 06/14/23 11:30 110/63 06/14/23 12:12 56 L 06/14/23 11:20 56 L 15 97 06/14/23 11:17 112/69 06/14/23 11:17 55 L 18 99 06/14/23 11:10 55 L 16 97 06/14/23 11:00 56 L 13 96 06/14/23 10:50 56 L 15 96 06/14/23 10:45 57 L 16 95 06/14/23 11:30 97 Room Air 06/14/23 10:49 36.7 C 56 L 13 144/73 H 96 Room Air Laboratory Results Short CBC 06/14/23 Range/Units 10:55 WBC 3.84 L (4.8-10.8) K/ul Hgb 8.8 L (14.0-18.0) g/dl Hct 25.3 L (42.0-52.0) % Plt Count 81 L (130-400) K/uL BMP 06/14/23 10:55 Sodium 140 Potassium 3.8 Chloride 111 H Carbon Dioxide 22 BUN 27 H Creatinine 1.27 Glucose 140 H Calcium 8.5 L Cardiac Enzymes 06/14/23 Range/Units 10:55 Total Creatine Kinase 79 (30-223) U/L Liver Function 06/14/23 Range/Units 10:55 Total Bilirubin 4.3 H (0.2-1.0) mg/dl AST 49 H (13-39) U/L ALT 27 (7-52) U/L Alkaline Phosphatase 165 H (34-104) U/L Albumin 3.0 L (3.4-5.0) gm/dl Urine 06/14/23 Range/Units 13:05 Urine Color [place] Urine Appearance Clear (Clear) Urine pH 5.5 (4.5-7.5) Ur Specific [place] 1.022 (1.000-1.030) Urine Protein Negative (Negative) Urine Glucose (UA) Negative (Negative) Diagnostic Findings Cervical Spine CT 06/14/23 11:10 CT cervical spine wo con CT DOSE: 1149.88 mGy.cm CLINICAL HISTORY: 73 years-old Male with fall. Acute neck injury status post fall COMPARISON: Head CT of same day TECHNIQUE: Multiple axial CT images of the cervical spine were obtained without contrast. A dose lowering technique was utilized adhering to the principles of ALARA. FINDINGS: Multilevel degenerative changes. No acute fracture or subluxation. Minimal superior endplate compression at T1 is likely chronic. The cervical soft tissues appear unremarkable. The visualized lung apices appear clear. IMPRESSION: No acute cervical spine fracture or subluxation. ACT 112: Negative or not required by law. The above report was generated using voice recognition software. It may contain grammatical, syntax or spelling errors. Electronically signed by: Yovany Gonzalez M.D. 06/14/2023 12:38 PM Chest X-Ray 06/14/23 11:10 XR chest 1V not portable HISTORY: 73 years-old Male fall acute chest trauma status post fall COMPARISON: Acute abdominal series radiographs 05/17/2023 TECHNIQUE: AP view of the chest FINDINGS: Cardiac mediastinal and hilar silhouettes are unchanged. Vascular graft projects over the medial right lung base. No pneumothorax, pleural effusion, airspace consolidation or pulmonary edema. Degenerative changes of the shoulders and spine. IMPRESSION: No acute process. ACT 112: Negative or not required by law. The above report was generated using voice recognition software. It may contain grammatical, syntax or spelling errors. Electronically signed by: Yovany Gonzalez M.D. 06/14/2023 12:[address] 06/14/23 11:10 CT head/brain wo con CLINICAL HISTORY: fall Technique: Contiguous axial CT images of the head were acquired from the base of the skull to the vertex without intravenous contrast administration. Images were viewed in brain, subdural and bone windows. Automated dose lowering techniques and/or adjustment according to patient size were utilized for this exam. Comparison: Comparison is made to CT head 05/17/2023 Findings: The ventricles, basal cisterns, and cerebral sulci are normal. There is no acute intracranial hemorrhage or evidence of acute territorial infarction. Neither mass effect, shift of the midline structures, nor abnormal extra-axial fluid collections are shown. Left maxillary mucous retention cyst is seen. The orbits appear normal. There are no acute fractures of the calvaria or scalp swelling. Impression: No acute intracranial hemorrhage, no evidence of acute territorial infarction or other acute intracranial disease process. ACT 112: Negative or not required by law. Electronically signed by: Arik Flowers M.D. 06/14/2023 11:59 AM Lumbar Spine X-Ray 06/14/23 11:10 XR lumbar spine min 4V routine CLINICAL HISTORY: fall TECHNIQUE: 5 views of the lumbar spine were obtained. Comparison: Comparison is made to CT abdomen pelvis 02/25/2023 FINDINGS: There is no evidence of an acute fracture. Mild loss of height of L1 is unchanged. Degenerative changes are seen in the lumbar spine. The alignment is normal. Masses or calcifications and stent are seen. IMPRESSION: Degenerative changes as above without acute fracture or subluxation. ACT 112: Negative or not required by law. Electronically signed by: Arik Flowers M.D. 06/14/2023 12:35 PM Supervising Physician Co-Signing Physician Notes I have seen and examined the patient and have discussed the case with the provider above. I agree with the assessment and plan as stated with the following exceptions. 73 yo M presents after a mechanical fall at home. Patient reports that he tripped on his pant leg that was too long. At baseline, he reports ambulating with a walker and independently. He states also fell last night. He denies other falls in the past. He is reporting severe back pain that is not radiating in the upper lumbar area. There is some tenderness to palpation in the paraspinal area here. SLR bilaterally is negative. Could not elicit DTR in the knees bilaterally as patient was tensing. Strength in lower extremities is 5/5. There is no sensation deficit. He denies other symptoms. He is generally elderly and weak. We tried to sit up together slowly. however, he was too painful. No significant pain at rest. Workup in the ER includes a lumbar xray, CT head and CT c-spine with no significant acute issues. Lumbar xray revealed DJD. He is improved with Toradol given in the ER, however, with his h/o GAVE syndrome, would avoid NSAIDs given high risk of stomach irritation and bleeding. Will continue treatments including pain control with scheduled Tylenol, valium for muscle relaxation, ice to back TID and PT/OT evaluation. DO Rhett
[2023-06-14] MEDS ORDERED: KETOROLAC TROMETHAMINE 15 MG/ML VIAL IV STA (14:08)
[2023-06-14] MEDS ORDERED: diazePAM 2 MG TABLET PO ONE (17:00)
--- NOTE | 2023-06-14 17:47 | Electrocardiogram Report ---
Test Reason : Blood Pressure : / mmHG Vent. Rate : 055 BPM Atrial Rate : 055 BPM P-R Int : 200 ms QRS Dur : 088 ms QT Int : 518 ms P-R-T Axes : 046 -14 057 degrees QTc Int : 495 ms Sinus bradycardia with occasional Premature ventricular complexes Prolonged QT Abnormal ECG Confirmed by Jose Ramon Rizvi ([id number]) on 06/14/2023 5:47:25 PM Referred By: Confirmed By:Greyson Rizvi
[2023-06-14] MEDS ORDERED: POLYETHYLENE (MIRALAX) 17 GM PACK PO PRN (18:31)
[2023-06-14] MEDS ORDERED: CARBOHYDRATES FOR HYPOGLYCEMIA PO PRN (18:31)
[2023-06-14] MEDS ORDERED: GLUCOSE 40% GEL 15 GM TUBE PO PRN (18:31)
[2023-06-14] MEDS ORDERED: GLUCAGON FOR INJ 1 MG VIAL SQ PRN (18:31)
[2023-06-14] MEDS ORDERED: GLUCOSE 10 TAB/TUBE PO PRN (18:31)
[2023-06-14] MEDS ORDERED: DEXTROSE 50% 50 ML SYRINGE IV PRN (18:31)
[2023-06-14] MEDS: MIRTAZAPINE TAB 15 MG TAB PO SCH (19:55)
[2023-06-14] MEDS: ACETAMINOPHEN 500 MG TAB PO SCH (19:56)
[2023-06-14] MEDS: allopurinoL 100 MG TAB PO SCH (19:56)
[2023-06-14] MEDS: rifAXIMin 550 MG TABLET PO SCH (19:56)
[2023-06-14] MEDS: PANTOprazole 40 MG TAB PO SCH (19:56)
[2023-06-14] MEDS: LACTULOSE SYRUP 10 GM/15 ML BTL 960 ML PO SCH (19:57)
[2023-06-14] MEDS: LIDOCAINE 5% 1 PATCH TD SCH (19:58)
[2023-06-14] MEDS: INSULIN ASPART PER UNIT CHARGE SC SCH ×2 (20:07→21:01)
[2023-06-14] MEDS: FINASTERIDE 5 MG TAB PO SCH (20:27)
[2023-06-14] MEDS: CITALOPRAM 20 MG TAB PO SCH (20:27)
[2023-06-14] MEDS: LANTUS PER UNIT CHARGE SQ SCH (21:02)
[2023-06-14] MEDS ORDERED: diazePAM 2 MG TABLET PO PRN (22:42)
[2023-06-15] MEDS: ACETAMINOPHEN 500 MG TAB PO SCH ×3 (01:47→18:11)
[2023-06-15] MEDS: traMADol HCL 50 MG TABLET PO PRN ×2 (04:04→17:02)
[2023-06-15] MEDS: PANTOprazole 40 MG TAB PO SCH ×2 (08:35→21:21)
[2023-06-15] MEDS: LIDOCAINE 5% 1 PATCH TD SCH (08:35)
[2023-06-15] MEDS: FINASTERIDE 5 MG TAB PO SCH (08:36)
[2023-06-15] MEDS: rifAXIMin 550 MG TABLET PO SCH ×2 (08:36→21:22)
[2023-06-15] MEDS: allopurinoL 100 MG TAB PO SCH (08:36)
[2023-06-15] MEDS: CITALOPRAM 20 MG TAB PO SCH (08:37)
[2023-06-15] MEDS: INSULIN ASPART PER UNIT CHARGE SC SCH ×4 (08:38→21:23)
[2023-06-15] MEDS: LANTUS PER UNIT CHARGE SQ SCH ×2 (08:38→21:25)
[2023-06-15] MEDS: FUROSEMIDE 40 MG TAB PO SCH (08:39)
[2023-06-15] MEDS: LACTULOSE SYRUP 10 GM/15 ML BTL 960 ML PO SCH ×2 (08:40→21:22)
[2023-06-15 09:10] LABS: Albumin Globulin Ratio 0.9 (0.9-2); Albumin Level 2.9 gm/dl (3.4-5.0); BUN Creatinine Ratio 20.6 (10-20); Bilirubin,Total 4.5 mg/dl (0.2-1.0); Creatinine Clr Calc Pharmacy 43.8 ml/min; Est GFR (African American) 50.7 ml/min; Est GFR (Non-African American) 43.8 ml/min; Globulin 3.4 gm/dl (2.5-4.0); Total Protein 6.3 gm/dl (6.0-8.3)
[2023-06-15 09:19] LABS: Basophils # (auto) 0.01 K/uL (0-0.2); Basophils % (auto) 0.3 %; Eosinophils # (auto) 0.35 K/uL (0-0.50); Eosinophils % (auto) 9.9 %; Hematocrit (blood only) 25.1 % (42.0-52.0); Hemoglobin 8.5 g/dl (14.0-18.0); Immature Granulocytes # (auto) 0.03 K/uL (0.01-0.20); Immature Granulocytes % (auto) 0.8 %; Lymphocytes # (auto) 0.74 K/uL (1.2-3.4); Lymphocytes % (auto) 20.8 %; Mean Corpuscular Hemoglobin 33.3 pg (25.0-34.0); Mean Corpuscular Hgb Conc 33.9 g/dL (32.0-36.0); Mean Corpuscular Volume 98.4 fL (80.0-100.0); Mean Platelet Volume 10.6 fL (9.4-12.4); Monocytes # (auto) 0.28 K/uL (0.11-0.59); Monocytes % (auto) 7.9 %; Neutrophils # (auto) 2.14 K/uL (1.40-6.50); Neutrophils % (auto) 60.3 %; Platelet Count 68 K/uL (130-400); RDW Coefficient of Variation 18.3 % (11.5-14.5); RDW Standard Deviation 64.8 fL (36.4-46.3); Red Blood Count 2.55 M/uL (4.70-6.10); White Blood Count 3.55 K/ul (4.8-10.8)
--- NOTE | 2023-06-15 16:43 | Hospitalist Progress Note ---
Date of Service June 15, 2023 Assessment & Plan (1) Fall: Plan: Mechanical fall per admitting service notes with addendum: Patient is 73-year-old male with PMH DM II, CKD III, FOFANA, cirrhosis s/p TIPS, esophageal varices, gastric antral vascular ectasia, portal vein thrombosis, hepatocellular carcinoma, pancytopenia, restrictive lung disease, psoriasis, prostate cancer, left renal mass presented to ER after unwitnessed fall this morning. able to get to patient quickly after fall. No reported seizure like activity, CP, SOB, dizziness DDX: orthostatic hypotension, arrhythmia, symptomatic bradycardia, mechanical fall, seizure CT Head: No acute intracranial abnormality CT C-spine: No acute cervical spine fracture or subluxation. HS troponin negative x 2. EKG sinus bradycardia 06/15 Tylenol as needed, ice pack twice daily PT OT evaluation May need Flexeril as needed (2) Back pain: Plan: Lumbar back pain after fall L spine X-ray: degenerative changes as above without acute fracture or subluxation. 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 Baseline 1.2-1.3 crea 1.55 (6) Pancytopenia: Plan: Chronic pancytopenia secondary to cirrhosis Hgb: 8.8. Baseline~9-10 Plt: 81 baseline 80s-110 CBC stable overall (7) Prostate cancer: Plan: S/p radiation 2020 (8) Depression: Plan: Continue citalopram, mirtazapine DVT Prophylaxis SCDs Full Code as per discussion with pt Follows with Dr Cisse for routine care Disposition PT and OT evaluation May possibly need acute rehab stay Admission and Anticipated Discharge Date Admission Date: June 14, 2023 Subjective Follow-up for mechanical fall, etc. Seen resting in bed, sleeping but easily awakened, comfortable States he is still having low back pain, but no radiation to lower extremities, no paresthesias or weakness no chest pain, dyspnea, palpitations, dizziness No fevers or chills No other symptoms Review of Systems Review of Systems: all noted and negative except for above Physical Exam Physical Exam: General- oriented x 3, not in distress, speaks in sentences with no effort or accessory muscle use Head- atraumatic Eyes- PERRL, EOMI, anicteric ENT- oropharynx clear Neck- supple, no JVD, no adenopathy, no thyromegaly; carotids +2/2, no bruits appreciated Lungs- clear to auscultation bilaterally, no rales/wheezes Heart- normal rate, regular rhythm; no murmur, no gallop, no rub appreciated Abdomen- normal bowel sounds, nondistended, soft, nontender, no masses or hepatosplenomegaly Extremities- no pretibial edema, no calf tenderness; peripheral pulses intact Back-mild tenderness on lumbar area, no erythema/hematoma/edema Neuro- alert, oriented x 3; CN 2-12 grossly intact; motor 5/5 bilaterally;sensation 100% on all extremities; no other gross focal neurologic deficits Skin- warm & dry Results & Data Results & Data Vital Signs (Past 12 Hours) Vital Signs Temp Pulse Pulse Resp BP BP Pulse Ox 06/15/23 15:52 60 06/15/23 15:36 36.8 C 58 L 20 143/56 H 95 06/15/23 12:04 36.7 C 58 L 19 130/64 94 06/15/23 07:11 36.3 C L 55 L 18 134/68 96 06/15/23 07:03 55 L O2 Del Method 06/15/23 15:52 06/15/23 15:36 Room Air 06/15/23 12:04 Room Air 06/15/23 07:11 Room Air 06/15/23 07:03 all noted and reviewed including below
[2023-06-15] MEDS: oxyCODONE HCL IR 5 MG TAB (IMMEDIATE RELEASE) PO PRN (21:20)
[2023-06-15] MEDS: MIRTAZAPINE TAB 15 MG TAB PO SCH (21:21)
[2023-06-16] MEDS: ACETAMINOPHEN 500 MG TAB PO SCH ×2 (02:34→14:41)
[2023-06-16] MEDS: oxyCODONE HCL IR 5 MG TAB (IMMEDIATE RELEASE) PO PRN ×4 (03:14→21:56)
[2023-06-16] MEDS: INSULIN ASPART PER UNIT CHARGE SC SCH ×4 (08:14→21:49)
[2023-06-16] MEDS: allopurinoL 100 MG TAB PO SCH (08:17)
[2023-06-16] MEDS: PANTOprazole 40 MG TAB PO SCH ×2 (08:17→21:53)
[2023-06-16] MEDS: FINASTERIDE 5 MG TAB PO SCH (08:18)
[2023-06-16] MEDS: FUROSEMIDE 40 MG TAB PO SCH (08:18)
[2023-06-16] MEDS: CITALOPRAM 20 MG TAB PO SCH (08:18)
[2023-06-16] MEDS: LANTUS PER UNIT CHARGE SQ SCH ×2 (08:19→21:57)
[2023-06-16] MEDS: LACTULOSE SYRUP 10 GM/15 ML BTL 960 ML PO SCH ×3 (08:19→21:52)
[2023-06-16] MEDS: LIDOCAINE 5% 1 PATCH TD SCH (08:20)
[2023-06-16] MEDS: rifAXIMin 550 MG TABLET PO SCH ×2 (10:19→21:53)
--- NOTE | 2023-06-16 17:16 | Hospitalist Progress Note ---
Date of Service June 16, 2023 Assessment & Plan (1) Fall: Plan: Mechanical fall per admitting service notes with addendum: Patient is 73-year-old male with PMH DM II, CKD III, FOFANA, cirrhosis s/p TIPS, esophageal varices, gastric antral vascular ectasia, portal vein thrombosis, hepatocellular carcinoma, pancytopenia, restrictive lung disease, psoriasis, prostate cancer, left renal mass presented to ER after unwitnessed fall this morning. able to get to patient quickly after fall. No reported seizure like activity, CP, SOB, dizziness DDX: orthostatic hypotension, arrhythmia, symptomatic bradycardia, mechanical fall, seizure CT Head: No acute intracranial abnormality CT C-spine: No acute cervical spine fracture or subluxation. HS troponin negative x 2. EKG sinus bradycardia 06/16 Still having significant pain Will order MRI of the thoracolumbar spine Continue with oxycodone cautiously Ice pack twice daily Tylenol as needed, ice pack twice daily PT OT evaluation May need Flexeril as needed (2) Back pain: Plan: Lumbar back pain after fall L spine X-ray: degenerative changes as above without acute fracture or subluxation. 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 Baseline 1.2-1.3 crea 1.55 (6) Pancytopenia: Plan: Chronic pancytopenia secondary to cirrhosis Hgb: 8.8. Baseline~9-10 Plt: 81 baseline 80s-110 CBC stable overall (7) Prostate cancer: Plan: S/p radiation 2020 (8) Depression: Plan: Continue citalopram, mirtazapine DVT Prophylaxis SCDs Full Code as per discussion with pt Follows with Dr Cisse for routine care Disposition PT and OT evaluation May possibly need acute rehab stay Admission and Anticipated Discharge Date Admission Date: June 14, 2023 Subjective Fall for mechanical fall, etc. Seen resting in bed, comfortable distress Still having significant back pain specially with movement No leg weakness or numbness or paresthesias No BM since Saturday No other symptom Review of Systems Review of Systems: all noted and negative except for above Physical Exam Physical Exam: General- oriented x 3, not in distress, speaks in sentences with no effort or accessory muscle use Eyes- anicteric Neck- no JVD Lungs- clear BS BL Heart- normal rate, regular rhythm; no murmurs Abdomen- normal bowel sounds, nondistended, soft, nontender Extremities- no pretibial edema, no calf tenderness Back-no tenderness, erythema/hematoma Neuro- alert, oriented x 3; no gross focal neurologic deficits Skin- warm & dry Results & Data Results & Data Vital Signs (Past 12 Hours) Vital Signs Temp Pulse Pulse Resp BP Pulse Ox O2 Del Method 06/16/23 14:59 62 06/16/23 11:30 37.1 C 77 18 110/61 99 Room Air 06/16/23 07:00 37.2 C 77 18 142/82 H 98 Room Air all noted and reviewed including below
[2023-06-16] MEDS: MIRTAZAPINE TAB 15 MG TAB PO SCH (21:52)
--- NOTE | 2023-06-16 23:17 | Magnetic Resonance Report ---
MR thoracic spine wo con CLINICAL HISTORY: s/p fall, pain TECHNIQUE: Multiplanar sequences through the thoracic spine were obtained, without intravenous contra st. Comparison: None available at the time of this dictation. FINDINGS: The alignment is anatomical. Mild disc disease is seen of T12-L1, however no significant canal or ne uroforaminal spinal stenosis is seen. There is mild increased T2 and decreased T1 signal in the super ior aspect of the T12 vertebral body, however no loss of height or retropulsion is seen. The spinal canal and neural foramina are patent. The spinal ligaments are intact, without evidence of disruption or abnormal signal intensity. The spi nal cord is normal in signal intensity and there is no evidence of cord contusion. There is no eviden ce of an extradural, intradural, extramedullary or intramedullary lesion. Visualized soft tissues are normal. IMPRESSION: 1. No evidence of cord compression, significant neuroforaminal narrowing or ligamentous injury. 2. T12 vertebral body edema may represent nondisplaced fracture or degenerative changes, correlation with point tenderness is recommended. No retropulsion is seen. ACT 112: Positive. There are findings on this exam that require communication between the performing entity and the patient following Patient Test Result Information Act ([place] Act 112) guidelines. Electronically signed by: Arik Flowers M.D. 06/16/2023 11:15 PM
--- NOTE | 2023-06-16 23:19 | Magnetic Resonance Report ---
MR lumbar spine wo con CLINICAL HISTORY: s/p fall, pain TECHNIQUE: Multiplanar sequences through the lumbar spine were obtained, without intravenous contrast . Comparison: Comparison is made to lumbar spine radiographs 06/14/2023 FINDINGS: The alignment is anatomical. Old appearing loss of height of L1. L1-L2: There is a focal right-sided bulge with mild right neural foraminal stenosis. L2-L3: There is broad base posterior disc bulge without significant canal or neuroforaminal stenosis. L3-L4: Broad-based posterior disc bulge with mild bilateral neuroforaminal stenosis. L4-L5: Broad-based posterior disc bulge with moderate bilateral neural foraminal stenosis. L5-S1: Broad-based posterior disc bulge and facet arthropathy with mild bilateral neuroforaminal sten osis. The spinal ligaments are intact, without evidence of disruption or abnormal signal intensity. The spi nal cord is normal in signal intensity and there is no evidence of cord contusion. There is no eviden ce of an extradural, intradural, extramedullary or intramedullary lesion. Visualized soft tissues are normal. IMPRESSION: 1. Multilevel degenerative changes with no significant canal stenosis and [id number] bilateral neuroforaminal stenosis. 2. Please see MRI thoracic spine for findings of potential T12 fracture. ACT 112: Negative or not required by law. Electronically signed by: Arik Flowers M.D. 06/16/2023 11:17 PM
[2023-06-17] MEDS: ACETAMINOPHEN 500 MG TAB PO SCH ×2 (03:00→13:23)
[2023-06-17] MEDS: INSULIN ASPART PER UNIT CHARGE SC SCH ×4 (07:50→20:30)
[2023-06-17] MEDS: oxyCODONE HCL IR 5 MG TAB (IMMEDIATE RELEASE) PO PRN (07:56)
[2023-06-17] MEDS: CITALOPRAM 20 MG TAB PO SCH (07:56)
[2023-06-17] MEDS: FINASTERIDE 5 MG TAB PO SCH (07:57)
[2023-06-17] MEDS: LACTULOSE SYRUP 10 GM/15 ML BTL 960 ML PO SCH ×2 (07:57→13:23)
[2023-06-17] MEDS: allopurinoL 100 MG TAB PO SCH (07:58)
[2023-06-17] MEDS: FUROSEMIDE 40 MG TAB PO SCH (07:58)
[2023-06-17] MEDS: PANTOprazole 40 MG TAB PO SCH ×2 (07:59→20:32)
[2023-06-17] MEDS: LANTUS PER UNIT CHARGE SQ SCH ×2 (07:59→20:30)
[2023-06-17] MEDS: LIDOCAINE 5% 1 PATCH TD SCH (07:59)
[2023-06-17] MEDS: rifAXIMin 550 MG TABLET PO SCH ×2 (07:59→20:31)
--- NOTE | 2023-06-17 09:46 | Hospitalist Progress Note ---
Date of Service June 17, 2023 Assessment & Plan (1) Fall: Plan: Mechanical fall per admitting service notes with addendum: Patient is 73-year-old male with PMH DM II, CKD III, FOFANA, cirrhosis s/p TIPS, esophageal varices, gastric antral vascular ectasia, portal vein thrombosis, hepatocellular carcinoma, pancytopenia, restrictive lung disease, psoriasis, prostate cancer, left renal mass presented to ER after unwitnessed fall this morning. able to get to patient quickly after fall. No reported seizure like activity, CP, SOB, dizziness DDX: orthostatic hypotension, arrhythmia, symptomatic bradycardia, mechanical fall, seizure CT Head: No acute intracranial abnormality CT C-spine: No acute cervical spine fracture or subluxation. HS troponin negative x 2. EKG sinus bradycardia 06/17 Still having significant pain MRI of the thoracolumbar spine: 1. Multilevel degenerative changes with no significant canal stenosis and [id number]-zd-[id number] bilateral neuroforaminal stenosis. 2. Please see MRI thoracic spine for findings of potential T12 fracture. Ortho Spine consulted add Flexeril 5mg TID Continue with oxycodone cautiously Ice pack twice daily Tylenol as needed, ice pack twice daily will order Pain Management consultation PT OT evaluation (2) Back pain: Plan: Possible T12 fracture Lumbar back pain after fall L spine X-ray: degenerative changes as above without acute fracture or subluxation. 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 Baseline 1.2-1.3 crea 1.55 (6) Pancytopenia: Plan: Chronic pancytopenia secondary to cirrhosis Hgb: 8.8. Baseline~9-10 Plt: 81 baseline 80s-110 CBC stable overall (7) Prostate cancer: Plan: S/p radiation 2020 (8) Depression: Plan: Continue citalopram, mirtazapine DVT Prophylaxis SCDs Full Code as per discussion with pt Follows with Dr Cisse for routine care Disposition PT and OT evaluation May possibly need acute rehab stay Admission and Anticipated Discharge Date Admission Date: June 14, 2023 Subjective ff up for back pain, s/p fall, etc seen resting in bed, not in distress still having significant back pain worse with movement no BM yet no abdominal pain ,nausea no other symptoms Review of Systems Review of Systems: all noted and negative except for above Physical Exam Physical Exam: General- oriented x 3, not in distress, speaks in sentences with no effort or accessory muscle use Eyes- anicteric Neck- no JVD Lungs- clear breath sounds BL Heart- normal rate, regular rhythm; no murmurs Abdomen- normal bowel sounds, nondistended, soft, no tenderness Extremities- no pretibial edema, no calf tenderness Neuro- alert, oriented x 3; no gross focal neurologic deficits Skin- warm & dry Results & Data Results & Data Vital Signs (Past 12 Hours) Vital Signs Temp Pulse Pulse Resp BP Pulse Ox O2 Del Method 06/17/23 08:08 36.1 C L 71 20 195/71 H 95 Room Air 06/17/23 06:57 63 06/17/23 04:15 36.8 C 64 18 165/64 H 95 Room Air 06/17/23 00:15 36.8 C 62 18 156/68 H 96 Room Air all noted and reviewed including below
--- NOTE | 2023-06-17 14:38 | CT Scan Report ---
CT OF THE THORACIC SPINE CLINICAL HISTORY: T12 fx COMPARISON STUDY: Thoracic spine MRI June 16, 2023. CT of the abdomen and pelvis March 07, 2023. TECHNIQUE: Helical axial images of the thoracic spine were obtained. Sagittal and coronal reconstru ctions were viewed. Automated exposure control was utilized for the study. A dose lowering techniqu e was utilized adhering to the principles of ALARA. FINDINGS: Alignment of the thoracic spine is anatomic. There is extensive anterior osteophytosis of t he thoracic spine. No suspicious osseous lesions are noted. Note is made of a nondisplaced horizontal fracture along the superior endplate of T12. Fracture extends into the anterior osteophytes at the T 11-T12 level. Extension into the bilateral pedicles is better depicted on MRI of June 16, 2023. No ad ditional thoracic spine fractures are present. There is an old stable mild L1 compression fracture. S mall right and trace left pleural effusions are noted. Perihepatic ascites is partially imaged. The l iver is cirrhotic. A TIPS is in place. A cystic lesion within the pancreatic head with peripheral amy cification remains unchanged. Splenomegaly is unchanged. IMPRESSION: 1. Acute nondisplaced horizontal 3 column fracture extending along the superior endplate of T12. Exte nsion into the bilateral pedicles better depicted on MRI of June 16, 2023. This fracture is considere d unstable. No retropulsion. 2. No additional acute thoracic spine fractures. 3. Old stable L1 compression fracture. 4. Extensive anterior osteophytosis of the thoracic spine. ACT 112: Negative or not required by law. Electronically signed by: Elan Alexander M.D. 06/17/2023 2:37 PM
[2023-06-17] MEDS ORDERED: LACTULOSE 200GM/700ML WTR ENEMA PR SCH (17:30)
[2023-06-17] MEDS: LACTULOSE SYRUP 30 GM/45 ML UDP PO SCH ×2 (19:43→22:40)
[2023-06-17] MEDS: CYCLOBENZAPRINE HCL 5 MG TAB PO SCH (20:31)
[2023-06-17] MEDS: MIRTAZAPINE TAB 15 MG TAB PO SCH (20:32)
[2023-06-18] MEDS: LACTULOSE SYRUP 30 GM/45 ML UDP PO SCH ×4 (03:02→13:37)
[2023-06-18] MEDS: ACETAMINOPHEN 500 MG TAB PO SCH ×2 (03:02→13:37)
--- NOTE | 2023-06-18 05:14 | Communication Note ---
Date of Service: June 18, 2023 Patient with large blood-tinged BM as per RN. No abdominal pain complaints. Usual back pain complaints as per RN. AP Painless LGIB History diverticulosis and angiectasia from 2021 colonoscopy CBC now
[2023-06-18 06:02] LABS: Basophils # (auto) 0.02 K/uL (0-0.2); Basophils % (auto) 0.5 %; Eosinophils # (auto) 0.24 K/uL (0-0.50); Eosinophils % (auto) 6.2 %; Hematocrit (blood only) 26.5 % (42.0-52.0); Hemoglobin 9.1 g/dl (14.0-18.0); Immature Granulocytes # (auto) 0.03 K/uL (0.01-0.20); Immature Granulocytes % (auto) 0.8 %; Lymphocytes # (auto) 0.77 K/uL (1.2-3.4); Lymphocytes % (auto) 19.7 %; Mean Corpuscular Hemoglobin 33.1 pg (25.0-34.0); Mean Corpuscular Hgb Conc 34.3 g/dL (32.0-36.0); Mean Corpuscular Volume 96.4 fL (80.0-100.0); Mean Platelet Volume 12.9 fL (9.4-12.4); Monocytes # (auto) 0.26 K/uL (0.11-0.59); Monocytes % (auto) 6.7 %; Neutrophils # (auto) 2.58 K/uL (1.40-6.50); Neutrophils % (auto) 66.1 %; Platelet Count 112 K/uL (130-400); RDW Coefficient of Variation 18.7 % (11.5-14.5); RDW Standard Deviation 64.3 fL (36.4-46.3); Red Blood Count 2.75 M/uL (4.70-6.10)
[2023-06-18 06:18] LABS: Albumin Globulin Ratio 0.8 (0.9-2); Albumin Level 3.1 gm/dl (3.4-5.0); BUN Creatinine Ratio 21.8 (10-20); Bilirubin,Total 3.8 mg/dl (0.2-1.0); Calcium 8.5 mg/dl (8.6-10.3); Creatinine Clr Calc Pharmacy 43.5 ml/min; Est GFR (African American) 50.3 ml/min; Est GFR (Non-African American) 43.4 ml/min; Globulin 3.7 gm/dl (2.5-4.0); Potassium 3.9 mmol/L (3.5-5.1); Total Protein 6.8 gm/dl (6.0-8.3)
[2023-06-18] MEDS: oxyCODONE HCL IR 5 MG TAB (IMMEDIATE RELEASE) PO PRN (08:31)
[2023-06-18] MEDS: INSULIN ASPART PER UNIT CHARGE SC SCH ×4 (08:34→20:59)
[2023-06-18] MEDS: LANTUS PER UNIT CHARGE SQ SCH ×2 (08:34→20:59)
[2023-06-18] MEDS: CYCLOBENZAPRINE HCL 5 MG TAB PO SCH (08:36)
[2023-06-18] MEDS: FINASTERIDE 5 MG TAB PO SCH (08:36)
[2023-06-18] MEDS: rifAXIMin 550 MG TABLET PO SCH ×2 (08:36→21:02)
[2023-06-18] MEDS: allopurinoL 100 MG TAB PO SCH (08:36)
[2023-06-18] MEDS: FUROSEMIDE 40 MG TAB PO SCH (08:36)
[2023-06-18] MEDS: PANTOprazole 40 MG TAB PO SCH ×2 (08:36→21:01)
[2023-06-18] MEDS: CITALOPRAM 20 MG TAB PO SCH (08:37)
[2023-06-18] MEDS: LIDOCAINE 5% 1 PATCH TD SCH (08:37)
--- NOTE | 2023-06-18 12:41 | Pain Management Consultation ---
Date of Consultation June 18, 2023 Assessment & Plan (1) Closed T12 spinal fracture: (2) Back pain: (3) Fall: Plan 1. Defer any pain management intervention for orthopedic spine recommendations/plan. * Understand that with this type of fracture, it is unstable and may require surgical intervention. 2. Thus, no procedural interventions by the pain management service are recommended at this time. 3. Careful transfers and mobilization with TLSO brace. 4. No change in current pain medication regimen is recommended. Thank you for this consultation. Pain management service will sign off at this time. Please reconsult if needed. History of Present Illness Reason for Consultation: persistent thoracolumbar pain Attending Physician: Franko Villanueva MD History of Present Illness Patient is a 73-year-old male that presented to the emergency department after a fall at home. He was walking through the kitchen to get some water to take his medications and fell backwards, landing flat on his back. During his time in the ED, patient reported pain in his head and in his lower back. He denied urinary incontinence. Patient stated he did not remember how long he was down for. Patient is not on any blood thinners. Patient underwent multiple thoracic and lumbar imaging studies, and the thoracic CT scan demonstrated an acute T12 Chance fracture. Patient was not having pain today while lying in the bed on his right side with his knees to his chest, as long as he was not moving. He stated he was tired due to just having received some pain medicine. Patient denied any bilateral lower extremity pain or paresthesias. Allergies Allergy/AdvReac Type Severity Reaction Status Date / Time No Known Allergies Allergy Mild Verified 05/22/23 07:55 Home Medications Medication Instructions Recorded Confirmed Type citalopram 10 mg tablet (Celexa) 10 mg PO QAM 03/24/20 06/14/23 History allopurinol 100 mg tablet 200 mg PO DAILY 05/16/20 06/14/23 History finasteride 5 mg tablet 5 mg PO QAM 11/03/21 06/14/23 History furosemide 20 mg tablet (Lasix) 40 mg PO QAM 11/02/22 06/14/23 History insulin glargine 100 unit/mL 20 unit subcut HS 11/05/22 06/14/23 History subcutaneous solution (Lantus U-100 Insulin) acetaminophen 325 mg tablet 650 mg PO Q8H PRN Pain 03/26/23 07/14/23 History (Tylenol) mirtazapine 30 mg tablet 30 mg PO HS 02/24/23 06/14/23 History triamcinolone acetonide 0.1 % 1 applic topical BID PRN PSORIATIC 02/24/23 06/14/23 History topical cream LESIONS WHEN NEEDED pantoprazole 40 mg tablet,delayed 40 mg PO BID 90 days #180 tabs 02/28/23 06/14/23 Rx release repaglinide 1 mg tablet 1 mg PO TIDM 03/07/23 06/14/23 History lactulose 10 gram oral packet 10 g PO BID 05/14/23 06/14/23 History (Kristalose) Lactobacil.acidophilus-Bifido.animalis 1 cap PO DAILY 05/17/23 06/14/23 History 5 billion cell sprinkle capsule (Probiotic) acetylcysteine 600 mg capsule 600 mg PO DAILY 05/17/23 06/14/23 History ferrous sulfate 325 mg (65 mg 325 mg PO DAILY 05/17/23 06/14/23 History iron) tablet (iron) vekjrvcpvpiv-krk-uagyy acid-vit 1 tab PO DAILY 05/17/23 06/14/23 History K-lycop 400 mcg-20 mcg-370 mcg tablet (Men's 50 Plus Multivitamin) rifaximin 550 mg tablet (Xifaxan) 550 mg PO BID 05/17/23 06/14/23 History zinc acetate 50 mg (zinc) capsule 50 mg PO DAILY 05/17/23 06/14/23 History Patient History Medical History (Updated 06/18/23 @ 12:46 by Jerson Lockhart DO) Anemia of chronic disease monthly labs done Anxiety and depression CKD (chronic kidney disease) stage 3, GFR 30-59 ml/min Esophageal varices hx Fatigue on exertion/liver issues have decreased strength GAVE (gastric antral vascular ectasia) pt not sure what this is GERD (gastroesophageal reflux disease) Gout NO ISSUES CURRENTLY History of panic attacks History of recent blood transfusion 11/05/22 Hypertension hx/sometimes will read a little low. Insulin dependent type 2 diabetes mellitus Liver spots recent testing and no changes. Nonalcoholic steatohepatitis (FOFANA) Prostate cancer (11/10/20) hx radiation Psoriasis Rectal bleeding hx of T2DM (type 2 diabetes mellitus) Upper GI bleed hx of Surgical History History of abdominal paracentesis multiple--last 01/14/23 History of colonoscopy with polypectomy History of esophagogastroduodenoscopy (EGD) last 10/25 revealed grade 2 esophageal varices, grade 1 gastric varices STABLE History of left cataract surgery History of prostate biopsy malignant History of right cataract surgery History of tonsillectomy and adenoidectomy S/P TIPS (transjugular intrahepatic portosystemic shunt) Family History Father , "3/4 liver gone due to drinking" Colorectal cancer, Onset Age: 63 Mother Lung cancer Daughter Cancer cervical and thyroid cancers Ovarian cancer Other No family history of adverse response to anesthesia 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 Smoking Status: Never smoker Second Hand Exposure: No; Do You Dip or Chew Tobacco: No; Hx Alcohol Use: No Hx Substance Use: No Preferred Language: Ethiopian Communication Ability: Effective Visual Impairment: No Limitations Hearing Ability: Normal 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 Beliefs That Will Affect Care: None marital status: Current Living Situation: Spouse Current Living Situation Comment: is currently at [facility] 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 Speech and cognition is intact, but slow. Mood and affect is appropriate. Does not appear in acute distress. HEAD: Normocephalic; atraumatic. NECK: Trachea is midline. CHEST: Regular chest respiration and excursion. EXTREMITIES: No TTP. Distal sensation and pulses intact bilaterally. BACK: Unable to test ROM due to known fracture. Positive low thoracic and upper lumbar exquisite tenderness. There is no paraspinal, quadratus lumborum, piriformis, or gluteal tenderness or spasm. NEURO: Distal sensation of lower legs intact and equal bilaterally. SKIN: Patchy plaques/rash noted. LOWER EXTREMITIES: Right - knee extension 4/5; knee flexion 4/5; ankle dorsiflexion 5/5; ankle plantar flexion 5/5; EHL 5/5 Left - knee extension 4/5; knee flexion 4/5; ankle dorsiflexion 5/5; ankle plantar flexion 5/5; EHL 5/5
--- NOTE | 2023-06-18 12:47 | Orthopedic Consultation ---
Date of Consultation June 18, 2023 Assessment & Plan (1) Closed T12 spinal fracture: Patient has evidence of a T12 Chance fracture. This is highly unstable. He would need to wear a brace at all times when out of bed. He may require surgical intervention. However in light of his significant health history we will try to treat this nonoperatively. We will need follow-up CAT scan in the next few days. I would recommend rehab if possible. History of Present Illness Reason for Consultation: T12 fracture status post fall Attending Physician: Franko Villanueva MD History of Present Illness This is a 73-year-old male who presents after a fall at home. Imaging does demonstrate evidence of a T12 Chance fracture. Today he states he has pain when out of bed. Is comfortable lying supine. Denies any numbness or tingling in the lower extremities denies any leg weakness. Allergies Allergy/AdvReac Type Severity Reaction Status Date / Time No Known Allergies Allergy Mild Verified 05/22/23 07:55 Home Medications Medication Instructions Recorded Confirmed Type citalopram 10 mg tablet (Celexa) 10 mg PO QAM 03/24/20 06/14/23 History allopurinol 100 mg tablet 200 mg PO DAILY 05/16/20 06/14/23 History finasteride 5 mg tablet 5 mg PO QAM 11/03/21 06/14/23 History furosemide 20 mg tablet (Lasix) 40 mg PO QAM 11/02/22 06/14/23 History insulin glargine 100 unit/mL 20 unit subcut HS 11/05/22 06/14/23 History subcutaneous solution (Lantus U-100 Insulin) acetaminophen 325 mg tablet 650 mg PO Q8H PRN Pain 02/24/23 06/14/23 History (Tylenol) mirtazapine 30 mg tablet 30 mg PO HS 02/24/23 06/14/23 History triamcinolone acetonide 0.1 % 1 applic topical BID PRN PSORIATIC 02/24/23 06/14/23 History topical cream LESIONS WHEN NEEDED pantoprazole 40 mg tablet,delayed 40 mg PO BID 90 days #180 tabs 02/28/23 06/14/23 Rx release repaglinide 1 mg tablet 1 mg PO TIDM 03/07/23 06/14/23 History lactulose 10 gram oral packet 10 g PO BID 05/14/23 06/14/23 History (Kristalose) Lactobacil.acidophilus-Bifido.animalis 1 cap PO DAILY 05/17/23 06/14/23 History 5 billion cell sprinkle capsule (Probiotic) acetylcysteine 600 mg capsule 600 mg PO DAILY 05/17/23 06/14/23 History ferrous sulfate 325 mg (65 mg 325 mg PO DAILY 05/17/23 06/14/23 History iron) tablet (iron) qzdrnreepqmq-xic-ysqfm acid-vit 1 tab PO DAILY 05/17/23 06/14/23 History K-lycop 400 mcg-20 mcg-370 mcg tablet (Men's 50 Plus Multivitamin) rifaximin 550 mg tablet (Xifaxan) 550 mg PO BID 05/17/23 06/14/23 History zinc acetate 50 mg (zinc) capsule 50 mg PO DAILY 05/17/23 06/14/23 History Patient History Medical History (Updated 06/18/23 @ 12:46 by Jerson Lockhart DO) Anemia of chronic disease monthly labs done Anxiety and depression CKD (chronic kidney disease) stage 3, GFR 30-59 ml/min Esophageal varices hx Fatigue on exertion/liver issues have decreased strength GAVE (gastric antral vascular ectasia) pt not sure what this is GERD (gastroesophageal reflux disease) Gout NO ISSUES CURRENTLY History of panic attacks History of recent blood transfusion 11/05/22 Hypertension hx/sometimes will read a little low. Insulin dependent type 2 diabetes mellitus Liver spots recent testing and no changes. Nonalcoholic steatohepatitis (FOFANA) Prostate cancer (11/10/20) hx radiation Psoriasis Rectal bleeding hx of T2DM (type 2 diabetes mellitus) Upper GI bleed hx of Surgical History History of abdominal paracentesis multiple--last 01/14/23 History of colonoscopy with polypectomy History of esophagogastroduodenoscopy (EGD) last 10/25 revealed grade 2 esophageal varices, grade 1 gastric varices STABLE History of left cataract surgery History of prostate biopsy malignant History of right cataract surgery History of tonsillectomy and adenoidectomy S/P TIPS (transjugular intrahepatic portosystemic shunt) Family History Father , "3/4 liver gone due to drinking" Colorectal cancer, Onset Age: 63 Mother Lung cancer Daughter Cancer cervical and thyroid cancers Ovarian cancer Other No family history of adverse response to anesthesia 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 Smoking Status: Never smoker Second Hand Exposure: No; Do You Dip or Chew Tobacco: No; Hx Alcohol Use: No Hx Substance Use: No Preferred Language: Senegalese Communication Ability: Effective Visual Impairment: No Limitations Hearing Ability: Normal Yeast Culture Developer Required: No Beliefs That Will Affect Care: None marital status: Current Living Situation: Spouse Current Living Situation Comment: is currently at [facility] 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 He is cooperative with exam. Demonstrates reasonable strength testing lower extremities. Sensory is intact. Results & Data Vital Signs (Past 12 Hours) Vital Signs Temp Pulse Pulse Resp BP Pulse Ox O2 Del Method 06/18/23 11:19 36.8 C 67 16 128/67 94 Room Air 06/18/23 07:53 37.1 C 66 16 149/62 H 95 Room Air 06/18/23 07:19 71 06/18/23 00:47 36.8 C 62 18 146/62 H 96 Room Air
[2023-06-18] MEDS: predniSONE 20 MG TAB PO SCH (13:37)
--- NOTE | 2023-06-18 16:56 | Hospitalist Progress Note ---
Date of Service June 18, 2023 Assessment & Plan (1) Fall: Plan: Mechanical fall per admitting service notes with addendum: Patient is 73-year-old male with PMH DM II, CKD III, FOFANA, cirrhosis s/p TIPS, esophageal varices, gastric antral vascular ectasia, portal vein thrombosis, hepatocellular carcinoma, pancytopenia, restrictive lung disease, psoriasis, prostate cancer, left renal mass presented to ER after unwitnessed fall this morning. able to get to patient quickly after fall. No reported seizure like activity, CP, SOB, dizziness CT Head: No acute intracranial abnormality CT C-spine: No acute cervical spine fracture or subluxation. HS troponin negative x 2. EKG sinus bradycardia 06/17 MRI of the thoracolumbar spine: 1. Multilevel degenerative changes with no significant canal stenosis and [id number] bilateral neuroforaminal stenosis. 2. Please see MRI thoracic spine for findings of potential T12 fracture. 06/[address] Lockhart recommending TLSO brace at this point, repeat CAT scan in the next few days, may require surgical intervention, recommend acute rehab Discontinue Flexeril 5mg TID as addition did not help the pain, may only cause lethargy Trial of prednisone 20 mg p.o. 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: Plan: Cirrhosis s/p TIPS 2019 and revision 2020 Esophageal varices Gastric antral vascular ectasia Liver mass Hepatocellular carcinoma Portal vein thrombosis Ammonia level WNL Compensated Continue Lasix usually on lactulose 15 mg twice daily at home Having constipation x3 days increased Lactulose to 30mg Q4h: +3 bowel movements today Tomorrow, start lactulose 30 mg twice daily along with usual rifaximin (4) Insulin dependent type 2 diabetes mellitus: Plan: A1c: 5.3 on 05/28/2023 Hold home oral agents Basal bolus insulin per protocol (5) CKD (chronic kidney disease) stage 3, GFR 30-59 ml/min: Plan: Cr: 1.27. Baseline 1.2-1.3 crea 1.55 (6) Pancytopenia: Plan: Chronic pancytopenia secondary to cirrhosis Hgb: 8.8. Baseline~9-10 Plt: 81 baseline 80s-110 CBC stable overall (7) Prostate cancer: Plan: S/p radiation 2020 (8) Depression: Plan: Continue citalopram, mirtazapine DVT Prophylaxis SCDs Full Code as per discussion with pt Follows with Dr Cisse for routine care Disposition PT and OT evaluation May possibly need acute rehab stay Admission and Anticipated Discharge Date Admission Date: June 14, 2023 Subjective Follow-up for back pain, T12 fracture, status post mechanical fall, etc. Seen resting in bed, comfortable, not in distress Sleeping but easily awakened Somewhat drowsy But oriented x3, answers all questions appropriately States back pain is about the same, no change with addition of Flexeril Had 3 large loose bowel movements this morning No other new symptom Review of Systems Review of Systems: all noted and negative except for above Physical Exam Physical Exam: General- oriented x 3, not in distress, speaks in sentences with no effort or accessory muscle use Eyes- anicteric Neck- no JVD Lungs- clear breath sounds bilaterally, no crackles or wheezing Heart- normal rate, regular rhythm; no murmurs Abdomen- normal bowel sounds, nondistended, soft, nontender Extremities- no pretibial edema, no calf tenderness Back-positive tenderness to the lower thoracic region No edema/erythema/hematoma Neuro- alert, oriented x 3; no gross focal neurologic deficits Skin- warm & dry Results & Data Results & Data Vital Signs (Past 12 Hours) Vital Signs Temp Pulse Pulse Resp BP Pulse Ox O2 Del Method 06/18/23 15:45 36.9 C 69 16 132/50 L 94 Room Air 06/18/23 15:31 63 06/18/23 11:19 36.8 C 67 16 128/67 94 Room Air 06/18/23 07:53 37.1 C 66 16 149/62 H 95 Room Air 06/18/23 07:19 71 all noted and reviewed including below
[2023-06-18] MEDS: MIRTAZAPINE TAB 15 MG TAB PO SCH (21:01)
[2023-06-19] MEDS: ACETAMINOPHEN 500 MG TAB PO SCH ×2 (02:20→13:36)
[2023-06-19] MEDS: INSULIN ASPART PER UNIT CHARGE SC SCH ×4 (08:28→21:52)
[2023-06-19] MEDS: LANTUS PER UNIT CHARGE SQ SCH ×2 (08:28→21:52)
[2023-06-19] MEDS: LIDOCAINE 5% 1 PATCH TD SCH (08:31)
[2023-06-19] MEDS: LACTULOSE SYRUP 30 GM/45 ML UDP PO SCH ×2 (08:34→21:53)
[2023-06-19] MEDS: predniSONE 20 MG TAB PO SCH (08:35)
[2023-06-19] MEDS: CITALOPRAM 20 MG TAB PO SCH (08:36)
[2023-06-19] MEDS: FINASTERIDE 5 MG TAB PO SCH (08:36)
[2023-06-19] MEDS: PANTOprazole 40 MG TAB PO SCH ×2 (08:37→21:53)
[2023-06-19] MEDS: rifAXIMin 550 MG TABLET PO SCH ×2 (08:37→21:53)
[2023-06-19] MEDS: allopurinoL 100 MG TAB PO SCH (08:37)
[2023-06-19] MEDS: FUROSEMIDE 40 MG TAB PO SCH (08:37)
[2023-06-19] MEDS: oxyCODONE HCL IR 5 MG TAB (IMMEDIATE RELEASE) PO PRN (08:40)
--- NOTE | 2023-06-19 15:39 | Hospitalist Progress Note ---
Date of Service June 19, 2023 Assessment & Plan (1) Fall: Plan: Mechanical fall per admitting service notes with addendum: Patient is 73-year-old male with PMH DM II, CKD III, FOFANA, cirrhosis s/p TIPS, esophageal varices, gastric antral vascular ectasia, portal vein thrombosis, hepatocellular carcinoma, pancytopenia, restrictive lung disease, psoriasis, prostate cancer, left renal mass presented to ER after unwitnessed fall this morning. able to get to patient quickly after fall. No reported seizure like activity, CP, SOB, dizziness CT Head: No acute intracranial abnormality CT C-spine: No acute cervical spine fracture or subluxation. HS troponin negative x 2. EKG sinus bradycardia 06/17 MRI of the thoracolumbar spine: 1. Multilevel degenerative changes with no significant canal stenosis and [id number] bilateral neuroforaminal stenosis. 2. Please see MRI thoracic spine for findings of potential T12 fracture. 06/[address] Lockhart recommending TLSO brace at this point, repeat CAT scan in the next few days, may require surgical intervention, recommend acute rehab 06/19; Discussed with Dr. Lockhart regarding timing of the repeat CAT scan. Recommends repeating scan on June 21 Continue current pain medication regimen with Tylenol p.o. every 12 hours, lidocaine patch, oxycodone Continue PT OT Continue TLSO brace. 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 Baseline 1.2-1.3 crea 1.55 (6) Pancytopenia: Plan: Chronic pancytopenia secondary to cirrhosis Hgb: 8.8. Baseline~9-10 Plt: 81 baseline 80s-110 CBC stable overall (7) Prostate cancer: Plan: S/p radiation 2020 (8) Depression: Plan: Continue citalopram, mirtazapine DVT Prophylaxis SCDs Full Code as per discussion with pt Follows with Dr Cisse for routine care Disposition PT and OT evaluation May possibly need acute rehab stay Plan for repeat CT thorax spine on June 21. Admission and Anticipated Discharge Date Admission Date: June 14, 2023 Subjective Patient seen and examined at bedside. Is comfortably lying in the bed; not in distress. He denies back pain at rest. Reports that the pain is worse on movement. Review of Systems Review of Systems: All systems reviewed & are unremarkable except as noted in Subjective Physical Exam Physical Exam: General- oriented x 3, not in distress, speaks in sentences with no effort or accessory muscle use Eyes- anicteric Neck- no JVD Lungs- clear breath sounds bilaterally, no crackles or wheezing Heart- normal rate, regular rhythm; no murmurs Abdomen- normal bowel sounds, nondistended, soft, nontender Extremities- no pretibial edema, no calf tenderness Back-positive tenderness to the lower thoracic region No edema/erythema/hematoma Neuro- alert, oriented x 3; no gross focal neurologic deficits Skin- warm & dry Results & Data Results & Data Vital Signs (Past 12 Hours) Vital Signs Temp Pulse Pulse Resp BP Pulse Ox O2 Del Method 06/19/23 15:00 37.3 C 65 20 126/53 L 96 Room Air 06/19/23 11:33 36.6 C 62 20 115/58 L 97 Room Air 06/19/23 07:51 36.7 C 58 L 20 164/65 H 97 Room Air 06/19/23 06:02 64 06/19/23 06:03 36.5 C 61 18 149/53 H 97 Room Air Laboratory Results Laboratory Results WBC 3.90 K/ul (4.8-10.8) L 06/18/23 05:19 RBC 2.75 M/uL (4.70-6.10) L 06/18/23 05:19 Hgb 9.1 g/dl (14.0-18.0) L 06/18/23 05:19 Hct 26.5 % (42.0-52.0) L 06/18/23 05:19 MCV 96.4 fL (80.0-100.0) 06/18/23 05:19 MCH 33.1 pg (25.0-34.0) 06/18/23 05:19 MCHC 34.3 g/dL (32.0-36.0) 06/18/23 05:19 RDW Std Deviation 64.3 fL (36.4-46.3) H 06/18/23 05:19 RDW Coeff of [place] 18.7 % (11.5-14.5) H 06/18/23 05:19 Plt Count 112 K/uL (130-400) L 06/18/23 05:19 MPV 12.9 fL (9.4-12.4) H 06/18/23 05:19 Immature Gran % (Auto) 0.8 % 06/18/23 05:19 Neut % (Auto) 66.1 % 06/18/23 05:19 Lymph % (Auto) 19.7 % 06/18/23 05:19 [place] % (Auto) 6.7 % 06/18/23 05:19 Eos % (Auto) 6.2 % 06/18/23 05:19 Baso % (Auto) 0.5 % 06/18/23 05:19 Neut # (Auto) 2.58 K/uL (1.40-6.50) 06/18/23 05:19 Lymph # (Auto) 0.77 K/uL (1.2-3.4) L 06/18/23 05:19 [place] # (Auto) 0.26 K/uL (0.11-0.59) 06/18/23 05:19 Eos # (Auto) 0.24 K/uL (0-0.50) 06/18/23 05:19 Baso # (Auto) 0.02 K/uL (0-0.2) 06/18/23 05:19 Immature Gran # (Auto) 0.03 K/uL (0.01-0.20) 06/18/23 05:19 PT 13.0 Seconds (9.0-12.0) H 06/14/23 12:09 INR 1.2 (0.9-1.1) H 06/14/23 12:09 APTT 29.3 Seconds (21.0-31.0) 06/14/23 12:09 PTT Ratio 1.0 06/14/23 12:09 VBG pH 7.42 (7.36-7.41) H 06/14/23 12:09 VBG pCO2 34 mmHg (38-50) L 06/14/23 12:09 VBG pO2 44 mmHg 06/14/23 12:09 VBG HCO3 22 mmol/L 06/14/23 12:09 VBG O2 Saturation 74.2 % 06/14/23 12:09 VBG Base Excess -2.0 mEq/L 06/14/23 12:09 Sodium 142 mmol/L (136-145) 06/18/23 05:19 Potassium 3.9 mmol/L (3.5-5.1) 06/18/23 05:19 Chloride 111 mmol/L (98-107) H 06/18/23 05:19 Carbon Dioxide 21 mmol/L (21-32) 06/18/23 05:19 Anion Gap 10 (3-11) 06/18/23 05:19 BUN 34 mg/dl (6-23) H 06/18/23 05:19 Creatinine 1.56 mg/dl (0.6-1.4) H 06/18/23 05:19 Est Cr Clr Drug Dosing 43.5 ml/min 06/18/23 05:19 Est GFR ( Amer) 50.3 ml/min 06/18/23 05:19 Est GFR (Non-Af Amer) 43.4 ml/min 06/18/23 05:19 BUN/Creatinine Ratio 21.8 (10-20) H 06/18/23 05:19 Glucose 141 mg/dl (70-99(Fasting)) H 06/18/23 05:19 POC Glucose 170 mg/dl (70-99) H 06/19/23 11:31 Calcium 8.5 mg/dl (8.6-10.3) L 06/18/23 05:19 Magnesium 1.7 mg/dl (1.7-2.4) 06/14/23 10:55 Total Bilirubin 3.8 mg/dl (0.2-1.0) H 06/18/23 05:19 AST 49 U/L (13-39) H 06/18/23 05:19 ALT 25 U/L (7-52) 06/18/23 05:19 Alkaline Phosphatase 177 U/L (34-104) H 06/18/23 05:19 Ammonia 69.0 umol/L (18-72) 06/14/23 11:35 Total Creatine Kinase 79 U/L (30-223) 06/14/23 10:55 Troponin I High Sens 6.5 pg/ml (0-20) 06/14/23 15:00 Total Protein 6.8 gm/dl (6.0-8.3) 06/18/23 05:19 Albumin 3.1 gm/dl (3.4-5.0) L 06/18/23 05:19 Globulin 3.7 gm/dl (2.5-4.0) 06/18/23 05:19 Albumin/Globulin Ratio 0.8 (0.9-2) L 06/18/23 05:19 Lipase 36 U/L (11-82) 06/14/23 10:55 Urine Color [place] 06/14/23 13:05 Urine Appearance Clear (Clear) 06/14/23 13:05 Urine pH 5.5 (4.5-7.5) 06/14/23 13:05 Ur Specific [place] 1.022 (1.000-1.030) 06/14/23 13:05 Urine Protein Negative (Negative) 06/14/23 13:05 Urine Glucose (UA) Negative (Negative) 06/14/23 13:05 Urine Ketones Negative (Negative) 06/14/23 13:05 Urine Blood 3+ (Negative) H 06/14/23 13:05 Urine Nitrite Positive (Negative) A 06/14/23 13:05 Urine Bilirubin Negative (Negative) 06/14/23 13:05 Urine Urobilinogen Negative (Negative) 06/14/23 13:05 Ur Leukocyte Esterase Negative (Negative) 06/14/23 13:05 Urine WBC (Auto) 1-5 /hpf (0-5) 06/14/23 13:05 Urine RBC (Auto) 10-30 /hpf (0-4) H 06/14/23 13:05 U Hyaline Cast (Auto) 1-5 /lpf (0-5) 06/14/23 13:05 U Epithel Cells (Auto) 0-5 /lpf (0-5) 06/14/23 13:05 Urine Bacteria (Auto) Negative (Negative) 06/14/23 13:05 Salicylates < 3.0 mg/dl (3.0-30) L 06/14/23 10:55 Acetaminophen < 3 ug/ml (10-30) L 06/14/23 10:55 Ethyl Alcohol mg/dL < 10.0 mg/dl (<10.0) 06/14/23 12:09 SARS-CoV-2, RNA, NAAT NEGATIVE (NEGATIVE) 06/14/23 13:20 Blood Type O Positive 06/18/23 05:19 Antibody Screen NEGATIVE 06/18/23 05:[address] 06/14/23 11:10 CT cervical spine wo con CT DOSE: 1149.88 mGy.cm CLINICAL HISTORY: 73 years-old Male with fall. Acute neck injury status post fall COMPARISON: Head CT of same day TECHNIQUE: Multiple axial CT images of the cervical spine were obtained without contrast. A dose lowering technique was utilized adhering to the principles of ALARA. FINDINGS: Multilevel degenerative changes. No acute fracture or subluxation. Minimal superior endplate compression at T1 is likely chronic. The cervical soft tissues appear unremarkable. The visualized lung apices appear clear. IMPRESSION: No acute cervical spine fracture or subluxation. ACT 112: Negative or not required by law. The above report was generated using voice recognition software. It may contain grammatical, syntax or spelling errors. Electronically signed by: Yovany Gonzalez M.D. 06/14/2023 12:38 PM Chest X-Ray 06/14/23 11:10 XR chest 1V not portable HISTORY: 73 years-old Male fall acute chest trauma status post fall COMPARISON: Acute abdominal series radiographs 05/17/2023 TECHNIQUE: AP view of the chest FINDINGS: Cardiac mediastinal and hilar silhouettes are unchanged. Vascular graft projects over the medial right lung base. No pneumothorax, pleural effusion, airspace consolidation or pulmonary edema. Degenerative changes of the shoulders and spine. IMPRESSION: No acute process. ACT 112: Negative or not required by law. The above report was generated using voice recognition software. It may contain grammatical, syntax or spelling errors. Electronically signed by: Yovany Gonzalez M.D. 06/14/2023 12:[address] 06/14/23 11:10 CT head/brain wo con CLINICAL HISTORY: fall Technique: Contiguous axial CT images of the head were acquired from the base of the skull to the vertex without intravenous contrast administration. Images were viewed in brain, subdural and bone windows. Automated dose lowering techniques and/or adjustment according to patient size were utilized for this exam. Comparison: Comparison is made to CT head 05/17/2023 Findings: The ventricles, basal cisterns, and cerebral sulci are normal. There is no acute intracranial hemorrhage or evidence of acute territorial infarction. Neither mass effect, shift of the midline structures, nor abnormal extra-axial fluid collections are shown. Left maxillary mucous retention cyst is seen. The orbits appear normal. There are no acute fractures of the calvaria or scalp swelling. Impression: No acute intracranial hemorrhage, no evidence of acute territorial infarction or other acute intracranial disease process. ACT 112: Negative or not required by law. Electronically signed by: Arik Flowers M.D. 06/14/2023 11:59 AM Lumbar Spine X-Ray 06/14/23 11:10 XR lumbar spine min 4V routine CLINICAL HISTORY: fall TECHNIQUE: 5 views of the lumbar spine were obtained. Comparison: Comparison is made to CT abdomen pelvis 02/25/2023 FINDINGS: There is no evidence of an acute fracture. Mild loss of height of L1 is unchanged. Degenerative changes are seen in the lumbar spine. The alignment is normal. Masses or calcifications and stent are seen. IMPRESSION: Degenerative changes as above without acute fracture or subluxation. ACT 112: Negative or not required by law. Electronically signed by: Arik Flowers M.D. 06/14/2023 12:35 PM Lumbar Spine MRI 06/16/23 14:02 MR lumbar spine wo con CLINICAL HISTORY: s/p fall, pain TECHNIQUE: Multiplanar sequences through the lumbar spine were obtained, without intravenous contrast. Comparison: Comparison is made to lumbar spine radiographs 06/14/2023 FINDINGS: The alignment is anatomical. Old appearing loss of height of L1. L1-L2: There is a focal right-sided bulge with mild right neural foraminal stenosis. L2-L3: There is broad base posterior disc bulge without significant canal or ne uroforaminal stenosis. L3-L4: Broad-based posterior disc bulge with mild bilateral neuroforaminal stenosis. L4-L5: Broad-based posterior disc bulge with moderate bilateral neural foraminal stenosis. L5-S1: Broad-based posterior disc bulge and facet arthropathy with mild bilateral neuroforaminal stenosis. The spinal ligaments are intact, without evidence of disruption or abnormal signal intensity. The spinal cord is normal in signal intensity and there is no evidence of cord contusion. There is no evidence of an extradural, intradural, extramedullary or intramedullary lesion. Visualized soft tissues are normal. IMPRESSION: 1. Multilevel degenerative changes with no significant canal stenosis and [id number] bilateral neuroforaminal stenosis. 2. Please see MRI thoracic spine for findings of potential T12 fracture. ACT 112: Negative or not required by law. Electronically signed by: Arik Flowers M.D. 06/16/2023 11:17 PM Thoracic Spine MRI 06/16/23 14:02 MR thoracic spine wo con CLINICAL HISTORY: s/p fall, pain TECHNIQUE: Multiplanar sequences through the thoracic spine were obtained, without intravenous contrast. Comparison: None available at the time of this dictation. FINDINGS: The alignment is anatomical. Mild disc disease is seen of T12-L1, however no significant canal or neuroforaminal spinal stenosis is seen. There is mild increased T2 and decreased T1 signal in the superior aspect of the T12 vertebral body, however no loss of height or retropulsion is seen. The spinal canal and neural foramina are patent. The spinal ligaments are intact, without evidence of disruption or abnormal signal intensity. The spinal cord is normal in signal intensity and there is no evidence of cord contusion. There is no evidence of an extradural, intradural, extramedullary or intramedullary lesion. Visualized soft tissues are normal. IMPRESSION: 1. No evidence of cord compression, significant neuroforaminal narrowing or ligamentous injury. 2. T12 vertebral body edema may represent nondisplaced fracture or degenerative changes, correlation with point tenderness is recommended. No retropulsion is seen. ACT 112: Positive. There are findings on this exam that require communication between the performing entity and the patient following Patient Test Result Information Act ([place] Act 112) guidelines. Electronically signed by: Arik Flowers M.D. 06/16/2023 11:[address] 06/17/23 10:00 CT OF THE THORACIC SPINE CLINICAL HISTORY: T12 fx COMPARISON STUDY: Thoracic spine MRI June 16, 2023. CT of the abdomen and pelvis March 07, 2023. TECHNIQUE: Helical axial images of the thoracic spine were obtained. Sagittal and coronal reconstructions were viewed. Automated exposure control was utilized for the study. A dose lowering technique was utilized adhering to the principles of ALARA. FINDINGS: Alignment of the thoracic spine is anatomic. There is extensive anterior osteophytosis of the thoracic spine. No suspicious osseous lesions are noted. Note is made of a nondisplaced horizontal fracture along the superior endplate of T12. Fracture extends into the anterior osteophytes at the T11-T12 level. Extension into the bilateral pedicles is better depicted on MRI of June 16, 2023. No additional thoracic spine fractures are present. There is an old stable mild L1 compression fracture. Small right and trace left pleural effusions are noted. Perihepatic ascites is partially imaged. The liver is cirrhotic. A TIPS is in place. A cystic lesion within the pancreatic head with peripheral calcification remains unchanged. Splenomegaly is unchanged. IMPRESSION: 1. Acute nondisplaced horizontal 3 column fracture extending along the superior endplate of T12. Extension into the bilateral pedicles better depicted on MRI of June 16, 2023. This fracture is considered unstable. No retropulsion. 2. No additional acute thoracic spine fractures. 3. Old stable L1 compression fracture. 4. Extensive anterior osteophytosis of the thoracic spine. ACT 112: Negative or not required by law. Electronically signed by: Elan Alexander M.D. 06/17/2023 2:37 PM
[2023-06-19] MEDS: MIRTAZAPINE TAB 15 MG TAB PO SCH (21:54)
[2023-06-20] MEDS: ACETAMINOPHEN 500 MG TAB PO SCH ×2 (02:00→13:12)
[2023-06-20 07:22] LABS: Basophils # (auto) 0.02 K/uL (0-0.2); Basophils % (auto) 0.5 %; Eosinophils # (auto) 0.27 K/uL (0-0.50); Eosinophils % (auto) 6.3 %; Hematocrit (blood only) 23.8 % (42.0-52.0); Hemoglobin 8.1 g/dl (14.0-18.0); Immature Granulocytes # (auto) 0.05 K/uL (0.01-0.20); Immature Granulocytes % (auto) 1.2 %; Lymphocytes % (auto) 20.9 %; Mean Corpuscular Hemoglobin 33.3 pg (25.0-34.0); Mean Corpuscular Volume 97.9 fL (80.0-100.0); Mean Platelet Volume 12.3 fL (9.4-12.4); Monocytes # (auto) 0.24 K/uL (0.11-0.59); Monocytes % (auto) 5.6 %; Neutrophils # (auto) 2.82 K/uL (1.40-6.50); Neutrophils % (auto) 65.5 %; Nucleated RBC # (auto) 0.02 K/uL (0-0.12); Nucleated RBC % (auto) 0.5 %; Platelet Count 95 K/uL (130-400); RDW Coefficient of Variation 19.4 % (11.5-14.5); RDW Standard Deviation 69.2 fL (36.4-46.3); Red Blood Count 2.43 M/uL (4.70-6.10)
[2023-06-20 07:45] LABS: Albumin Globulin Ratio 0.8 (0.9-2); Albumin Level 2.7 gm/dl (3.4-5.0); BUN Creatinine Ratio 25.2 (10-20); Bilirubin,Total 2.3 mg/dl (0.2-1.0); Calcium 8.4 mg/dl (8.6-10.3); Creatinine Clr Calc Pharmacy 48.9 ml/min; Est GFR (African American) 57.9 ml/min; Est GFR (Non-African American) 49.9 ml/min; Globulin 3.3 gm/dl (2.5-4.0); Potassium 3.9 mmol/L (3.5-5.1)
[2023-06-20] MEDS: INSULIN ASPART PER UNIT CHARGE SC SCH ×4 (08:00→22:03)
[2023-06-20] MEDS: LANTUS PER UNIT CHARGE SQ SCH ×2 (08:00→22:02)
[2023-06-20] MEDS: LIDOCAINE 5% 1 PATCH TD SCH (08:00)
[2023-06-20] MEDS: LACTULOSE SYRUP 30 GM/45 ML UDP PO SCH ×2 (08:02→22:05)
[2023-06-20] MEDS: FUROSEMIDE 40 MG TAB PO SCH (08:04)
[2023-06-20] MEDS: rifAXIMin 550 MG TABLET PO SCH ×2 (08:04→22:07)
[2023-06-20] MEDS: FINASTERIDE 5 MG TAB PO SCH (08:04)
[2023-06-20] MEDS: allopurinoL 100 MG TAB PO SCH (08:04)
[2023-06-20] MEDS: predniSONE 20 MG TAB PO SCH (08:04)
[2023-06-20] MEDS: CITALOPRAM 20 MG TAB PO SCH (08:04)
[2023-06-20] MEDS: PANTOprazole 40 MG TAB PO SCH ×2 (08:05→22:06)
[2023-06-20] MEDS: oxyCODONE HCL IR 5 MG TAB (IMMEDIATE RELEASE) PO PRN (08:07)
--- NOTE | 2023-06-20 13:40 | Hospitalist Progress Note ---
Date of Service June 20, 2023 Assessment & Plan (1) Fall: Plan: Mechanical fall per admitting service notes with addendum: Patient is 73-year-old male with PMH DM II, CKD III, FOFANA, cirrhosis s/p TIPS, esophageal varices, gastric antral vascular ectasia, portal vein thrombosis, hepatocellular carcinoma, pancytopenia, restrictive lung disease, psoriasis, prostate cancer, left renal mass presented to ER after unwitnessed fall this morning. able to get to patient quickly after fall. No reported seizure like activity, CP, SOB, dizziness CT Head: No acute intracranial abnormality CT C-spine: No acute cervical spine fracture or subluxation. HS troponin negative x 2. EKG sinus bradycardia 06/17 MRI of the thoracolumbar spine: 1. Multilevel degenerative changes with no significant canal stenosis and [id number] bilateral neuroforaminal stenosis. 2. Please see MRI thoracic spine for findings of potential T12 fracture. 06/[address] Lockhart recommending TLSO brace at this point, repeat CAT scan in the next few days, may require surgical intervention, recommend acute rehab 06/20; Discussed with Dr. Lockhart regarding timing of the repeat CAT scan. Recommends repeating scan on June 21 Continue current pain medication regimen with Tylenol p.o. every 12 hours, lidocaine patch, oxycodone Continue PT OT Continue TLSO brace. 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 Baseline 1.2-1.3 crea 1.55 (6) Pancytopenia: Plan: Chronic pancytopenia secondary to cirrhosis Hgb: 8.8. Baseline~9-10 Plt: 81 baseline 80s-110 CBC stable overall (7) Prostate cancer: Plan: S/p radiation 2020 (8) Depression: Plan: Continue citalopram, mirtazapine DVT Prophylaxis SCDs Full Code as per discussion with pt Follows with Dr Cisse for routine care Disposition PT and OT evaluation May possibly need acute rehab stay Plan for repeat CT thorax spine tomorrow. Admission and Anticipated Discharge Date Admission Date: June 14, 2023 Subjective Patient seen and examined at bedside. Pain is well controlled. Not in distress. Review of Systems Review of Systems: All systems reviewed & are unremarkable except as noted in Subjective Physical Exam Physical Exam: General- oriented x 3, not in distress, speaks in sentences with no effort or accessory muscle use Eyes- anicteric Neck- no JVD Lungs- clear breath sounds bilaterally, no crackles or wheezing Heart- normal rate, regular rhythm; no murmurs Abdomen- normal bowel sounds, nondistended, soft, nontender Extremities- no pretibial edema, no calf tenderness Back-positive tenderness to the lower thoracic region No edema/erythema/hematoma Neuro- alert, oriented x 3; no gross focal neurologic deficits Skin- warm & dry Results & Data Results & Data Vital Signs (Past 12 Hours) Vital Signs Temp Pulse Pulse Resp BP Pulse Ox O2 Del Method 06/20/23 11:00 36.7 C 64 18 116/53 L 96 Room Air 06/20/23 07:30 36.7 C 59 L 18 107/63 96 Room Air 06/20/23 06:00 63 06/20/23 02:50 36.9 C 65 16 142/59 H 95 Room Air Laboratory Results Laboratory Results WBC 4.30 K/ul (4.8-10.8) L 06/20/23 07:01 RBC 2.43 M/uL (4.70-6.10) L 06/20/23 07:01 Hgb 8.1 g/dl (14.0-18.0) L 06/20/23 07:01 Hct 23.8 % (42.0-52.0) L 06/20/23 07:01 MCV 97.9 fL (80.0-100.0) 06/20/23 07:01 MCH 33.3 pg (25.0-34.0) 06/20/23 07:01 MCHC 34.0 g/dL (32.0-36.0) 06/20/23 07:01 RDW Std Deviation 69.2 fL (36.4-46.3) H 06/20/23 07:01 RDW Coeff of [place] 19.4 % (11.5-14.5) H 06/20/23 07:01 Plt Count 95 K/uL (130-400) L 06/20/23 07:01 MPV 12.3 fL (9.4-12.4) 06/20/23 07:01 Immature Gran % (Auto) 1.2 % 06/20/23 07:01 Neut % (Auto) 65.5 % 06/20/23 07:01 Lymph % (Auto) 20.9 % 06/20/23 07:01 Simpson % (Auto) 5.6 % 06/20/23 07:01 Eos % (Auto) 6.3 % 06/20/23 07:01 Baso % (Auto) 0.5 % 06/20/23 07:01 Neut # (Auto) 2.82 K/uL (1.40-6.50) 06/20/23 07:01 Lymph # (Auto) 0.90 K/uL (1.2-3.4) L 06/20/23 07:01 Simpson # (Auto) 0.24 K/uL (0.11-0.59) 06/20/23 07:01 Eos # (Auto) 0.27 K/uL (0-0.50) 06/20/23 07:01 Baso # (Auto) 0.02 K/uL (0-0.2) 06/20/23 07:01 Immature Gran # (Auto) 0.05 K/uL (0.01-0.20) 06/20/23 07:01 Absolute Nucleated RBC 0.02 K/uL (0-0.12) 06/20/23 07:01 Nucleated RBC % (auto) 0.5 % 06/20/23 07:01 PT 13.0 Seconds (9.0-12.0) H 06/14/23 12:09 INR 1.2 (0.9-1.1) H 06/14/23 12:09 APTT 29.3 Seconds (21.0-31.0) 06/14/23 12:09 PTT Ratio 1.0 06/14/23 12:09 VBG pH 7.42 (7.36-7.41) H 06/14/23 12:09 VBG pCO2 34 mmHg (38-50) L 06/14/23 12:09 VBG pO2 44 mmHg 06/14/23 12:09 VBG HCO3 22 mmol/L 06/14/23 12:09 VBG O2 Saturation 74.2 % 06/14/23 12:09 VBG Base Excess -2.0 mEq/L 06/14/23 12:09 Sodium 144 mmol/L (136-145) 06/20/23 07:01 Potassium 3.9 mmol/L (3.5-5.1) 06/20/23 07:01 Chloride 116 mmol/L (98-107) H 06/20/23 07:01 Carbon Dioxide 24 mmol/L (21-32) 06/20/23 07:01 Anion Gap 4 (3-11) 06/20/23 07:01 BUN 35 mg/dl (6-23) H 06/20/23 07:01 Creatinine 1.39 mg/dl (0.6-1.4) 06/20/23 07:01 Est Cr Clr Drug Dosing 48.9 ml/min 06/20/23 07:01 Est GFR ( Amer) 57.9 ml/min 06/20/23 07:01 Est GFR (Non-Af Amer) 49.9 ml/min 06/20/23 07:01 BUN/Creatinine Ratio 25.2 (10-20) H 06/20/23 07:01 Glucose 108 mg/dl (70-99(Fasting)) H 06/20/23 07:01 POC Glucose 225 mg/dl (70-99) H 06/20/23 11:41 Calcium 8.4 mg/dl (8.6-10.3) L 06/20/23 07:01 Magnesium 1.7 mg/dl (1.7-2.4) 06/14/23 10:55 Total Bilirubin 2.3 mg/dl (0.2-1.0) H 06/20/23 07:01 AST 52 U/L (13-39) H 06/20/23 07:01 ALT 31 U/L (7-52) 06/20/23 07:01 Alkaline Phosphatase 155 U/L (34-104) H 06/20/23 07:01 Ammonia 69.0 umol/L (18-72) 06/14/23 11:35 Total Creatine Kinase 79 U/L (30-223) 06/14/23 10:55 Troponin I High Sens 6.5 pg/ml (0-20) 06/14/23 15:00 Total Protein 6.0 gm/dl (6.0-8.3) 06/20/23 07:01 Albumin 2.7 gm/dl (3.4-5.0) L 06/20/23 07:01 Globulin 3.3 gm/dl (2.5-4.0) 06/20/23 07:01 Albumin/Globulin Ratio 0.8 (0.9-2) L 06/20/23 07:01 Lipase 36 U/L (11-82) 06/14/23 10:55 Urine Color [place] 06/14/23 13:05 Urine Appearance Clear (Clear) 06/14/23 13:05 Urine pH 5.5 (4.5-7.5) 06/14/23 13:05 Ur Specific Man 1.022 (1.000-1.030) 06/14/23 13:05 Urine Protein Negative (Negative) 06/14/23 13:05 Urine Glucose (UA) Negative (Negative) 06/14/23 13:05 Urine Ketones Negative (Negative) 06/14/23 13:05 Urine Blood 3+ (Negative) H 06/14/23 13:05 Urine Nitrite Positive (Negative) A 06/14/23 13:05 Urine Bilirubin Negative (Negative) 06/14/23 13:05 Urine Urobilinogen Negative (Negative) 06/14/23 13:05 Ur Leukocyte Esterase Negative (Negative) 06/14/23 13:05 Urine WBC (Auto) 1-5 /hpf (0-5) 06/14/23 13:05 Urine RBC (Auto) 10-30 /hpf (0-4) H 06/14/23 13:05 U Hyaline Cast (Auto) 1-5 /lpf (0-5) 06/14/23 13:05 U Epithel Cells (Auto) 0-5 /lpf (0-5) 06/14/23 13:05 Urine Bacteria (Auto) Negative (Negative) 06/14/23 13:05 Salicylates < 3.0 mg/dl (3.0-30) L 06/14/23 10:55 Acetaminophen < 3 ug/ml (10-30) L 06/14/23 10:55 Ethyl Alcohol mg/dL < 10.0 mg/dl (<10.0) 06/14/23 12:09 SARS-CoV-2, RNA, NAAT NEGATIVE (NEGATIVE) 06/14/23 13:20 Blood Type O Positive 06/18/23 05:19 Antibody Screen NEGATIVE 06/18/23 05:[address] 06/14/23 11:10 CT cervical spine wo con CT DOSE: 1149.88 mGy.cm CLINICAL HISTORY: 73 years-old Male with fall. Acute neck injury status post fall COMPARISON: Head CT of same day TECHNIQUE: Multiple axial CT images of the cervical spine were obtained without contrast. A dose lowering technique was utilized adhering to the principles of ALARA. FINDINGS: Multilevel degenerative changes. No acute fracture or subluxation. Minimal superior endplate compression at T1 is likely chronic. The cervical soft tissues appear unremarkable. The visualized lung apices appear clear. IMPRESSION: No acute cervical spine fracture or subluxation. ACT 112: Negative or not required by law. The above report was generated using voice recognition software. It may contain grammatical, syntax or spelling errors. Electronically signed by: Yovany Gonzalez M.D. 06/14/2023 12:38 PM Chest X-Ray 06/14/23 11:10 XR chest 1V not portable HISTORY: 73 years-old Male fall acute chest trauma status post fall COMPARISON: Acute abdominal series radiographs 05/17/2023 TECHNIQUE: AP view of the chest FINDINGS: Cardiac mediastinal and hilar silhouettes are unchanged. Vascular graft projects over the medial right lung base. No pneumothorax, pleural effusion, airspace consolidation or pulmonary edema. Degenerative changes of the shoulders and spine. IMPRESSION: No acute process. ACT 112: Negative or not required by law. The above report was generated using voice recognition software. It may contain grammatical, syntax or spelling errors. Electronically signed by: Yovany Gonzalez M.D. 06/14/2023 12:[address] 06/14/23 11:10 CT head/brain wo con CLINICAL HISTORY: fall Technique: Contiguous axial CT images of the head were acquired from the base of the skull to the vertex without intravenous contrast administration. Images were viewed in brain, subdural and bone windows. Automated dose lowering techniques and/or adjustment according to patient size were utilized for this exam. Comparison: Comparison is made to CT head 05/17/2023 Findings: The ventricles, basal cisterns, and cerebral sulci are normal. There is no acute intracranial hemorrhage or evidence of acute territorial infarction. Neither mass effect, shift of the midline structures, nor abnormal extra-axial fluid collections are shown. Left maxillary mucous retention cyst is seen. The orbits appear normal. There are no acute fractures of the calvaria or scalp swelling. Impression: No acute intracranial hemorrhage, no evidence of acute territorial infarction or other acute intracranial disease process. ACT 112: Negative or not required by law. Electronically signed by: Arik Flowers M.D. 06/14/2023 11:59 AM Lumbar Spine X-Ray 06/14/23 11:10 XR lumbar spine min 4V routine CLINICAL HISTORY: fall TECHNIQUE: 5 views of the lumbar spine were obtained. Comparison: Comparison is made to CT abdomen pelvis 02/25/2023 FINDINGS: There is no evidence of an acute fracture. Mild loss of height of L1 is unchanged. Degenerative changes are seen in the lumbar spine. The alignment is normal. Masses or calcifications and stent are seen. IMPRESSION: Degenerative changes as above without acute fracture or subluxation. ACT 112: Negative or not required by law. Electronically signed by: Arik Flowers M.D. 06/14/2023 12:35 PM Lumbar Spine MRI 06/16/23 14:02 MR lumbar spine wo con CLINICAL HISTORY: s/p fall, pain TECHNIQUE: Multiplanar sequences through the lumbar spine were obtained, without intravenous contrast. Comparison: Comparison is made to lumbar spine radiographs 06/14/2023 FINDINGS: The alignment is anatomical. Old appearing loss of height of L1. L1-L2: There is a focal right-sided bulge with mild right neural foraminal stenosis. L2-L3: There is broad base posterior disc bulge without significant canal or neuroforaminal stenosis. L3-L4: Broad-based posterior disc bulge with mild bilateral neuroforaminal stenosis. L4-L5: Broad-based posterior disc bulge with moderate bilateral neural foraminal stenosis. L5-S1: Broad-based posterior disc bulge and facet arthropathy with mild bilateral neuroforaminal stenosis. The spinal ligaments are intact, without evidence of disruption or abnormal signal intensity. The spinal cord is normal in signal intensity and there is no evidence of cord contusion. There is no evidence of an extradural, intradural, extramedullary or intramedullary lesion. Visualized soft tissues are normal. IMPRESSION: 1. Multilevel degenerative changes with no significant canal stenosis and [id number] bilateral neuroforaminal stenosis. 2. Please see MRI thoracic spine for findings of potential T12 fracture. ACT 112: Negative or not required by law. Electronically signed by: Arik Flowers M.D. 06/16/2023 11:17 PM Thoracic Spine MRI 06/16/23 14:02 MR thoracic spine wo con CLINICAL HISTORY: s/p fall, pain TECHNIQUE: Multiplanar sequences through the thoracic spine were obtained, without intravenous contrast. Comparison: None available at the time of this dictation. FINDINGS: The alignment is anatomical. Mild disc disease is seen of T12-L1, however no significant canal or neuroforaminal spinal stenosis is seen. There is mild increased T2 and decreased T1 signal in the superior aspect of the T12 vertebral body, however no loss of height or retropulsion is seen. The spinal canal and neural foramina are patent. The spinal ligaments are intact, without evidence of disruption or abnormal signal intensity. The spinal cord is normal in signal intensity and there is no evidence of cord contusion. There is no evidence of an extradural, intradural, extramedullary or intramedullary lesion. Visualized soft tissues are normal. IMPRESSION: 1. No evidence of cord compression, significant neuroforaminal narrowing or ligamentous injury. 2. T12 vertebral body edema may represent nondisplaced fracture or degenerative changes, correlation with point tenderness is recommended. No retropulsion is seen. ACT 112: Positive. There are findings on this exam that require communication between the performing entity and the patient following Patient Test Result Information Act ([place] Act 112) guidelines. Electronically signed by: Arik Flowers M.D. 06/16/2023 11:[address] 06/17/23 10:00 CT OF THE THORACIC SPINE CLINICAL HISTORY: T12 fx COMPARISON STUDY: Thoracic spine MRI June 16, 2023. CT of the abdomen and pelvi s March 07, 2023. TECHNIQUE: Helical axial images of the thoracic spine were obtained. Sagittal and coronal reconstructions were viewed. Automated exposure control was utilized for the study. A dose lowering technique was utilized adhering to the principles of ALARA. FINDINGS: Alignment of the thoracic spine is anatomic. There is extensive anterior osteophytosis of the thoracic spine. No suspicious osseous lesions are noted. Note is made of a nondisplaced horizontal fracture along the superior endplate of T12. Fracture extends into the anterior osteophytes at the T11-T12 level. Extension into the bilateral pedicles is better depicted on MRI of June 16, 2023. No additional thoracic spine fractures are present. There is an old stable mild L1 compression fracture. Small right and trace left pleural effusions are noted. Perihepatic ascites is partially imaged. The liver is cirrhotic. A TIPS is in place. A cystic lesion within the pancreatic head with peripheral calcification remains unchanged. Splenomegaly is unchanged. IMPRESSION: 1. Acute nondisplaced horizontal 3 column fracture extending along the superior endplate of T12. Extension into the bilateral pedicles better depicted on MRI of June 16, 2023. This fracture is considered unstable. No retropulsion. 2. No additional acute thoracic spine fractures. 3. Old stable L1 compression fracture. 4. Extensive anterior osteophytosis of the thoracic spine. ACT 112: Negative or not required by law. Electronically signed by: Elan Alexander M.D. 06/17/2023 2:37 PM
[2023-06-20 20:22] VITALS: O2SAT 96
[2023-06-20] MEDS: MIRTAZAPINE TAB 15 MG TAB PO SCH (22:05)
[2023-06-21] MEDS: ACETAMINOPHEN 500 MG TAB PO SCH ×2 (03:13→14:46)
[2023-06-21 07:24] LABS: Basophils # (auto) 0.03 K/uL (0-0.2); Basophils % (auto) 0.8 %; Eosinophils # (auto) 0.25 K/uL (0-0.50); Eosinophils % (auto) 6.3 %; Hematocrit (blood only) 23.5 % (42.0-52.0); Hemoglobin 8.1 g/dl (14.0-18.0); Immature Granulocytes # (auto) 0.04 K/uL (0.01-0.20); Lymphocytes # (auto) 0.92 K/uL (1.2-3.4); Lymphocytes % (auto) 23.3 %; Mean Corpuscular Hemoglobin 33.1 pg (25.0-34.0); Mean Corpuscular Hgb Conc 34.5 g/dL (32.0-36.0); Mean Corpuscular Volume 95.9 fL (80.0-100.0); Mean Platelet Volume 12.1 fL (9.4-12.4); Monocytes # (auto) 0.26 K/uL (0.11-0.59); Monocytes % (auto) 6.6 %; Neutrophils # (auto) 2.45 K/uL (1.40-6.50); Platelet Count 92 K/uL (130-400); RDW Standard Deviation 65.8 fL (36.4-46.3); Red Blood Count 2.45 M/uL (4.70-6.10); White Blood Count 3.95 K/ul (4.8-10.8)
[2023-06-21 07:36] LABS: Albumin Globulin Ratio 0.8 (0.9-2); Albumin Level 2.7 gm/dl (3.4-5.0); BUN Creatinine Ratio 25.5 (10-20); Bilirubin,Total 2.4 mg/dl (0.2-1.0); Calcium 8.5 mg/dl (8.6-10.3); Creatinine Clr Calc Pharmacy 48.2 ml/min; Est GFR (African American) 56.9 ml/min; Est GFR (Non-African American) 49.1 ml/min; Globulin 3.4 gm/dl (2.5-4.0); Potassium 3.7 mmol/L (3.5-5.1); Total Protein 6.1 gm/dl (6.0-8.3)
[2023-06-21] MEDS: LIDOCAINE 5% 1 PATCH TD SCH (08:25)
[2023-06-21] MEDS: rifAXIMin 550 MG TABLET PO SCH (08:26)
[2023-06-21] MEDS: CITALOPRAM 20 MG TAB PO SCH (08:26)
[2023-06-21] MEDS: allopurinoL 100 MG TAB PO SCH (08:26)
[2023-06-21] MEDS: FUROSEMIDE 40 MG TAB PO SCH (08:26)
[2023-06-21] MEDS: PANTOprazole 40 MG TAB PO SCH (08:27)
[2023-06-21] MEDS: FINASTERIDE 5 MG TAB PO SCH (08:27)
[2023-06-21] MEDS: predniSONE 20 MG TAB PO SCH (08:27)
[2023-06-21] MEDS: LACTULOSE SYRUP 30 GM/45 ML UDP PO SCH (08:28)
[2023-06-21] MEDS: INSULIN ASPART PER UNIT CHARGE SC SCH ×2 (08:34→12:11)
[2023-06-21] MEDS: LANTUS PER UNIT CHARGE SQ SCH (08:34)
[2023-06-21] MEDS: oxyCODONE HCL IR 5 MG TAB (IMMEDIATE RELEASE) PO PRN ×2 (08:34→14:46)
--- NOTE | 2023-06-21 10:17 | CT Scan Report ---
CT OF THE THORACIC SPINE CLINICAL HISTORY: Follow up on the T12 fracture. COMPARISON STUDY: Thoracic spine MRI June 16, [address] June 17, 2023. TECHNIQUE: Helical axial images of the thoracic spine were obtained. Sagittal and coronal reconstru ctions were viewed. Automated exposure control was utilized for the study. A dose lowering techniqu e was utilized adhering to the principles of ALARA. FINDINGS: Alignment of the thoracic spine is anatomic. There has been no change in alignment of the a cute nondisplaced horizontal 3 column T12 vertebral fracture. Fracture extends along the superior end plate of T12. Extension into the bilateral pedicles is again noted. Fracture also extends through ant erior osteophytes at the T11-T12 level. No additional thoracic spine fractures are present. There is extensive anterior osteophytosis of the thoracic spine. Old L1 compression fracture is unchanged. Par avertebral infiltration at T12 level has mildly increased. Central canal and neural foramen are subop timally assessed given CT technique. There is a trace right pleural effusion. Cirrhosis, TIPS and per ihepatic ascites are again noted. No acute fractures are identified within the visualized posterior r ibs. IMPRESSION: 1. No change in alignment of the acute nondisplaced horizontal 3 column fracture of T12, as described above. Fracture extends along the superior endplate of T12 with extension into the bilateral pedicle s. This fracture is considered unstable. No retropulsion. 2. No additional thoracic spine fractures. 3. Extensive anterior osteophytosis of the thoracic spine. ACT 112: Negative or not required by law. Electronically signed by: Elan Alexander M.D. 06/21/2023 10:16 AM
[2023-06-21 11:29] VITALS: PULSE 60; TEMP 97.3
[2023-06-21] MEDS ORDERED: BACLOFEN 10 MG TAB PO ONE (12:22)
--- NOTE | 2023-06-21 14:50 | Hospitalist Progress Note ---
Date of Service June 21, 2023 Assessment & Plan (1) Fall: Plan: Mechanical fall per admitting service notes with addendum: Patient is 73-year-old male with PMH DM II, CKD III, FOFANA, cirrhosis s/p TIPS, esophageal varices, gastric antral vascular ectasia, portal vein thrombosis, hepatocellular carcinoma, pancytopenia, restrictive lung disease, psoriasis, prostate cancer, left renal mass presented to ER after unwitnessed fall this morning. able to get to patient quickly after fall. No reported seizure like activity, CP, SOB, dizziness CT Head: No acute intracranial abnormality CT C-spine: No acute cervical spine fracture or subluxation. HS troponin negative x 2. EKG sinus bradycardia 06/17 MRI of the thoracolumbar spine: 1. Multilevel degenerative changes with no significant canal stenosis and [id number] bilateral neuroforaminal stenosis. 2. Please see MRI thoracic spine for findings of potential T12 fracture. 06/[address] Lockhart recommending TLSO brace at this point, repeat CAT scan in the next few days, may require surgical intervention, recommend acute rehab 06/20; Discussed with Dr. Lockhart regarding timing of the repeat CAT scan. Recommends repeating scan on June 21 Continue current pain medication regimen with Tylenol p.o. every 12 hours, lidocaine patch, oxycodone Continue PT OT Continue TLSO brace. 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 Baseline 1.2-1.3 crea 1.55 (6) Pancytopenia: Plan: Chronic pancytopenia secondary to cirrhosis Hgb: 8.8. Baseline~9-10 Plt: 81 baseline 80s-110 CBC stable overall (7) Prostate cancer: Plan: S/p radiation 2020 (8) Depression: Plan: Continue citalopram, mirtazapine DVT Prophylaxis SCDs Full Code as per discussion with pt Follows with Dr Cisse for routine care Disposition PT and OT evaluation May possibly need acute rehab stay Plan for repeat CT thorax spine tomorrow. Admission and Anticipated Discharge Date Admission Date: June 14, 2023 Physical Exam Physical Exam: General- oriented x 3, not in distress, speaks in sentences with no effort or accessory muscle use Eyes- anicteric Neck- no JVD Lungs- clear breath sounds bilaterally, no crackles or wheezing Heart- normal rate, regular rhythm; no murmurs Abdomen- normal bowel sounds, nondistended, soft, nontender Extremities- no pretibial edema, no calf tenderness Back-positive tenderness to the lower thoracic region No edema/erythema/hematoma Neuro- alert, oriented x 3; no gross focal neurologic deficits Skin- warm & dry Results & Data Results & Data Vital Signs (Past 12 Hours) Vital Signs Temp Pulse Pulse Resp BP Pulse Ox O2 Del Method 06/21/23 11:29 36.3 C L 60 18 108/55 L 96 Room Air 06/21/23 08:00 58 L 06/21/23 09:38 Room Air 06/21/23 08:18 36.6 C 61 16 124/55 L 96 Room Air 06/21/23 04:39 36.6 C 60 18 137/64 96 Room Air
--- NOTE | 2023-06-21 15:04 | Discharge Summary ---
Date of Service June 21, 2023 Admission HPI Per Admitting Provider Patient is 73-year-old male with PMH DM II, CKD III, FOFANA, cirrhosis s/p TIPS, esophageal varices, gastric antral vascular ectasia, portal vein thrombosis, hepatocellular carcinoma, pancytopenia, restrictive lung disease, psoriasis, prostate cancer, left renal mass presented to ER with complaint of fall today. Patient states this morning woke up and was feeling well. He states that he was walking to get a drink to take his morning medications. States the next thing he remembers is being on the floor. Patient's was sleeping in recliner in next room and heard fall and got patient quickly. There was no report patient was unconscious or seizure-like activity. Patient states try to get off floor however was having low back pain. EMS arrived and transported patient to ER. Patient states was not having any chest pain, shortness of breath or dizziness this morning prior to fall. Reports last fall was 6 months ago and that was when he was lifting his leg and lost his balance. He states he sometimes uses walker throughout the house. This morning he was using his walker when he fell. Denies loss control of bowel or bladder. Patient's current complaint is low back pain with movement. Denies any pain at rest. Denies upper extremity or lower extremity pain, denies headache, dizziness, vision changes, neck pain or any other known injury. Patient with history of ascites requiring paracentesis. He reports he has been doing well and last paracentesis approximately 6 to 7 months ago. Denies any recent increased lower extremity or abdominal edema. Denies fever/chills, diaphoresis, N/V/D/C, melena, hematochezia, CP, SOB, orthopnea, palpitations, cough, sore throat, rhinorrhea, abdominal pain, paresthesias, extremity weakness, rashes, urinary symptoms. Admission Exam Per Admitting Provider General: no acute distress, chronic ill appearing, WDWN Head: normocephalic, atraumatic Eyes: PERRL, EOM's intact, conjunctiva +icterus, anicteric ENT: normal inspection external ears, nose, mucous membranes moist Neck: supple, trachea midline Lungs: clear, no respiratory distress, no wheezing/rhonchi/rales CV: RRR, no murmur, no pretibial edema Abd: normal BS, soft, non-tender Back: no discoloration, no ecchymosis, no spinous process tenderness to palpation, entire spine non-tender to palpation, +tenderness to lumbar region with rotation of trunk, Negative straight leg raise to approx 30 degress, BLE with sensation to light touch intact, pedal pushes and pulls intact bilaterally Ext: no cyanosis, no calf tenderness Neuro: A&O x 3, no focal deficits noted, normal affect Skin: warm, dry, +jaundice, +diffuse scaling plaques Principal Diagnosis Mechanical fall T12 fracture Discharge Exam General- oriented x 3, not in distress, speaks in sentences with no effort or accessory muscle use Eyes- anicteric Neck- no JVD Lungs- clear breath sounds bilaterally, no crackles or wheezing Heart- normal rate, regular rhythm; no murmurs Abdomen- normal bowel sounds, nondistended, soft, nontender Extremities- no pretibial edema, no calf tenderness Back-positive tenderness to the lower thoracic region No edema/erythema/hematoma Neuro- alert, oriented x 3; no gross focal neurologic deficits Skin- warm & dry Discharge Data Allergies Allergy/AdvReac Type Severity Reaction Status Date / Time No Known Allergies Allergy Mild Verified 05/22/23 07:55 Consultations 06/14/23 13:15 ED Decision to Admit Stat 06/17/23 09:19 Consult Orthopedic Surgery Routine 06/18/23 07:48 Consult Pain Management Routine Ordered Studies 06/14/23 11:10 CT cervical spine wo con Stat CT head/brain wo con Stat 06/16/23 14:02 MRI Lumbar Spine [MR lumbar spine wo con] Routine MRI Thoracic [MR thoracic spine wo con] Routine 06/17/23 10:00 CT thoracic spine wo con Routine 06/21/23 08:00 CT thoracic spine wo con Routine Hospital Course (1) Fall: (2) Back pain: (3) 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 able to get to patient quickly after fall. No reported seizure like activity, CP, SOB, dizziness Patient underwent following imaging on admission: CT Head: No acute intracranial abnormality CT C-spine: No acute cervical spine fracture or subluxation MRI of the thoracolumbar spine: 1. Multilevel degenerative changes with no significant canal stenosis and [id number] bilateral neuroforaminal stenosis. 2. Please see MRI thoracic spine for findings of potential T12 fracture. CT thoracic spine; acute nondisplaced horizontal 3 column fracture extending along the superior endplate of T12. Extension into the bilateral pedicles better depicted on MRI of June 16, 2023. This fracture is considered unstable. During the hospitalization; orthospine was consulted. Dr. Lockhart recommendedTLSO brace at this point, repeat CAT scan in the next few days, may require surgical intervention, recommend acute rehab. Repeat CT scan of thoracic spine was obtained on June 21 as per recommendation by Dr. Lockhart; Dr. Lockhart reviewed the imaging. He recommended conservative management and discharged to acute rehab. Pain control was done with Tylenol and oxycodone as needed. Pain management consultation was also done. Patient was discharged to [facility]. Patient will need to wear TLSO brace when out of bed. Total Time Total Time Spent Total Time Spent (In Minutes): 45 Total Time Includes: Examination of the Patient, Discharge Planning, Medication Reconciliation, Communication With Other Providers and Other Discharge Plan Discharge Items Patient Disposition: Transfer Inpatient Rehab Fac Reason For Visit: FALL Discharge Diagnosis: T12 fracture Activity: Resume your previous activity Non-emergency contact: Primary Care Provider Call non-emergency contact if: you have any medication questions and your symptoms worsen Follow-up/Referrals: Francisco Cisse MD [Primary Care Provider] - (Date & Time 06/28/2023 12:00 PM Provider Francisco Cisse MD Department General Internal Medicine [facility] ) Diet: Regular and Carb Count or DM1 Addtl Attending Provider Instructions: You were admitted due to fall. MRI and the CT scan of the back showed fracture at T2 level. It was reviewed by Dr. Lockhart from orthospine surgery. He recommended pain control, TLSO brace at all times when out of bed. For pain control; 1) use Tylenol 650 mg as needed every 8 hours 2) minimize use of oxycodone and baclofen as it can contribute to altered mental status 3) lidocaine patch on lower back Also, lactulose 10 g 3 times daily; dose should be titrated so that the patient has 3 bowel movements per day. Please make sure this happens. Pending Studies at Discharge: No Stand-Alone Forms: My [facility] [employer] Skilled Items Patient informed of condition?: Yes DNR: No Discharge Level of Care: Acute rehab Communicable Disease: No Discharge Prognosis: Stable Lines: None Urinary Catheter: No Medications and DC Order Prescriptions: New oxycodone 5 mg Tablet 5 mg PO Q12H PRN (Reason: pain) Qty: 1 0RF lidocaine 4 % adhesive patch,medicated 1 patch topical DAILY Qty: 15 0RF Rx Instructions: may leave on for up to 12 hrs Apply on lower back baclofen 5 mg tablet 5 mg PO BID PRN (Reason: muscle spasm) Qty: 20 0RF Continued citalopram [Celexa] 10 mg tablet 10 mg PO QAM allopurinol 100 mg Tablet 200 mg PO DAILY Rx Instructions: PER [facility]--STILL TAKING, PER EXT MED HX--NOT ON LIST WHEN LAST FILLED. furosemide [Lasix] 20 mg Tablet 40 mg PO QAM triamcinolone acetonide 0.1 % cream 1 applic TOPICAL BID PRN (Reason: PSORIATIC LESIONS WHEN NEEDED) mirtazapine 30 mg tablet 30 mg PO HS acetaminophen [Tylenol] 325 mg Tablet 650 mg PO Q8H PRN (Reason: Pain) pantoprazole 40 mg tablet,delayed release (DR/EC) 40 mg PO BID 90 Days Qty: 180 0RF repaglinide 1 mg tablet 1 mg PO TIDM zinc acetate 50 mg (zinc) Capsule 50 mg PO DAILY ferrous sulfate [iron] 325 mg (65 mg iron) Tablet 325 mg PO DAILY acetylcysteine 600 mg Capsule 600 mg PO DAILY Xifaxan 550 mg tablet 550 mg PO BID Rx Instructions: LAST FILLED 03/06/23 FOR 30 DAYS. Men's 50 Plus Multivitamin 400-20-370 mcg Tablet 1 tab PO DAILY Probiotic 5 billion cell Capsule, Sprinkle 1 cap PO DAILY finasteride 5 mg Tablet 5 mg PO QAM insulin glargine [Lantus U-100 Insulin] 100 unit/mL solution 20 unit subcut HS Changed lactulose [Kristalose] 10 gram packet 10 g PO TID Qty: 15 0RF Discharge Orders: Discharge Order (Routine); Ordered 06/21/23 Ordered By: Marcus Sheppard Admission Data Admit Date/Time: 06/14/23 14:39 Attending Provider: Marcus Sheppard Admit Provider: Crystal Delaney Primary Care Provider: Francisco Cisse Other Providers: Crystal Delaney ; Jerson Lockhart ; [facility] ; Kriss Morley ; Franko Villanueva ; [facility]
[2023-06-21 15:36] VITALS: BP 134/68
== END 2023-06-21 16:30 | DRG 551 ==
LOC: ED 10:32 → 2W 14:39 → SUATTDRO 14:39 → 2W 17:45

== ENCOUNTER 2023-06-25 15:53 | Inpatient (IN) ==
--- NOTE | 2023-06-25 16:19 | Emergency Department Note ---
Impression & Plan Hepatic encephalopathy, Liver disease, Hyperammonemia, Closed T12 spinal fracture ED Provider Note Provider: Jonny Hoskins MD DATE OF SERVICE: 06/25/2023 CHIEF COMPLAINT: Altered mental status HISTORY OF PRESENT ILLNESS: Patient is a 73-year-old gentleman past medical history of cirrhosis status post TIPS, esophageal varices, GERD, obstructive lung disease, diabetes, prostate cancer, recent hospitalization here for back injury presenting from [facility] rehab facility today reported with increased confusion developing overnight. Patient evidently refused his lactulose which he is normally supposed to take and is more confused this morning. Report from the facility they called prior to his arrival indicate the patient did take a morning dose of lactulose but refused the afternoon dose. Did vomit in route for EMS and given some Zofran. No trauma was reported or other fevers. Patient upon arrival is unable to give any significant history. Patient nonverbal to me at this time. Son later arrives and states that this is not that atypical for ammonia issues for the patient related to his liver. Does need some pain medication muscle laxer to help with his back injury. Son reports the patient was a little bit with to yesterday but not to the amount that he is today. PAST MEDICAL HISTORY: As noted above MEDICATIONS: Reviewed medication list from the facility SOCIAL HISTORY: Presenting today from [facility] where he has been out for rehab without a reported smoking history PHYSICAL EXAM: GENERAL: Resting on his side in bed in no distress. Occasionally yawns. Nonverbal at this time. Some withdraw to pain in all 4 extremities. Head: normocephalic and atraumatic EYES: No injection, discharge or icterus when opening his eyelids. PERRL NECK: Trachea midline. Supple. ENT: Mucous membranes pink and moist. LUNGS: Airway patent. No retractions. Breath sounds clear with good air entry bilaterally. HEART: Regular rate and rhythm. No chest wall tenderness ABDOMEN: Soft and non-tender, without guarding or rebound. SKIN: Acyanotic, warm, dry, without rashes EXTREMITIES: Without swelling, tenderness or deformity NEUROLOGICAL: Nonverbal to me. Withdraws to pain in all 4 extremities. In no distress. EK bpm normal sinus rhythm. No PVC or PAC. No acute ST segment elevation or depression with a QTc of 412. Some nonspecific anterior lateral T wave flattening noted. CONTINUOUS CARDIAC MONITORING: was ordered and showed a heart rate of 60s-70s bpm in normal sinus rhythm Patient's laboratory studies and imaging reviewed. Differential includes Infection, dehydration, metabolic abnormality, hypo/hyperglycemia, electrolyte disturbance, anemia, hypoxia, cardiac sources, intracerebral event/neurologic, as well as other pathologies. IMPRESSION/MEDICAL DECISION MAKING: From facility evidently refused some lactulose dose is now more confused. No significant new trauma history is reported recovering from T12 fracture. Vomited in route. Benign abdomen on exam given his history of cirrhosis as well as the vomiting we will complete a CT of the head as well as the abdomen pelvis to exclude intracranial abnormality or evidence of acute intra-abdominal abnormality. Appears somnolent and likely this is more hepatic encephalopathy a nd ammonia was sent. Additional blood work was sent as well and get imaging completed to see if there is an alternative explanation for his change but do not see big focal deficits indicative of CVA at this time. Chest x-ray May with some slight congestive change. Gently given low bit IV fluid with some hyponatremia here today. Slightly improved anemia. No leukocytosis. Bilirubin not far off recent baseline at 3.9. Urinalysis not indicative of infection. His ammonia does return moderately elevated at 72. Not sure if this explains everything. Has been using pain medicines and baclofe n as well. Will do some axis images to see if this does clear sensorium. Son updated at bedside. CT scan of the head without acute pathology noted by radiology report. CT abdomen pelvis with unchanged acute to subacute T12 fracture with maybe little thickening of the sigmoid colon difficult to exclude diverticulitis from the radiology report. Again no fevers or leukocytosis reported. However given is only mildly increased ammonia with his change in mental status although no fevers or leukocytosis we will give a dose of ceftriaxone for antibiotic coverage at this time. Will bring into the hospital for further care. DIAGNOSIS: Altered mental status, hepatic encephalopathy, possible diverticulitis, subacute T12 fracture DISPOSITION: Hospitalist will evaluate Past Med/Surg History Medical History (Updated 06/25/23 @ 19:48 by Jonny Hoskins M.D.) Anemia of chronic disease monthly labs done Anxiety and depression CKD (chronic kidney disease) stage 3, GFR 30-59 ml/min Esophageal varices hx Fatigue on exertion/liver issues have decreased strength GAVE (gastric antral vascular ectasia) pt not sure what this is GERD (gastroesophageal reflux disease) Gout NO ISSUES CURRENTLY History of panic attacks History of recent blood transfusion 11/05/22 Hypertension hx/sometimes will read a little low. Insulin dependent type 2 diabetes mellitus Liver spots recent testing and no changes. Nonalcoholic steatohepatitis (FOFANA) Prostate cancer (11/10/20) hx radiation Psoriasis Rectal bleeding hx of T2DM (type 2 diabetes mellitus) Upper GI bleed hx of Surgical History History of abdominal paracentesis multiple--last 01/14/23 History of colonoscopy with polypectomy History of esophagogastroduodenoscopy (EGD) last 10/25 revealed grade 2 esophageal varices, grade 1 gastric varices STABLE History of left cataract surgery History of prostate biopsy malignant History of right cataract surgery History of tonsillectomy and adenoidectomy S/P TIPS (transjugular intrahepatic portosystemic shunt) Family History Father , "3/4 liver gone due to drinking" Colorectal cancer, Onset Age: 63 Mother Lung cancer Daughter Cancer cervical and thyroid cancers Ovarian cancer Other No family history of adverse response to anesthesia 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 Smoking Status: Unknown if ever smoked Second Hand Exposure: No; Do You Dip or Chew Tobacco: No; Hx Alcohol Use: No Hx Substance Use: No Preferred Language: Turkish Communication Ability: Effective Visual Impairment: No Limitations Hearing Ability: Normal Hospital Liaison Required: No Beliefs That Will Affect Care: None marital status: Current Living Situation: Spouse Current Living Situation Comment: is currently at [facility] 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 How many Children do You have: 6 How many Children do You have Comment: one , eldest daughter in her sleep from seizure disorder Feels Safe at Home: Yes Childhood Exposure to Second-Hand Smoke: Yes Diet Comment: "I watch my sugar, average fasting is 140 mg/dl" caffeine: Yes (cola, sugar free, decaf) during the past year weight has: remained stable Dental Care, Regularly: No Physical Activity Frequency: Does not Exercise Seatbelt Use: always Sunscreen Use: Yes Assistive Devices: Walker Allergies Allergies Allergy/AdvReac Type Severity Reaction Status Date / Time No Known Allergies Allergy Mild Verified 05/22/23 07:55 Home Meds Home Medications Medication Instructions Recorded Confirmed citalopram 10 mg tablet (Celexa) 10 mg PO QAM 03/24/20 06/25/23 allopurinol 100 mg tablet 0 mg PO DAILY 05/16/20 06/14/23 finasteride 5 mg tablet 5 mg PO QAM 11/03/21 06/25/23 furosemide 20 mg tablet (Lasix) 40 mg PO QAM 11/02/22 06/25/23 insulin glargine 100 unit/mL 20 unit subcut HS 11/05/22 06/25/23 subcutaneous solution (Lantus U-100 Insulin) acetaminophen 325 mg tablet 650 mg PO Q8H PRN Pain 02/24/23 06/14/23 (Tylenol) mirtazapine 30 mg tablet 30 mg PO HS 02/24/23 06/25/23 triamcinolone acetonide 0.1 % 0 applic topical BID PRN PSORIATIC 02/24/23 06/25/23 topical cream LESIONS WHEN NEEDED repaglinide 1 mg tablet 0 mg PO TIDM 03/07/23 06/14/23 Lactobacil.acidophilus-Bifido.animalis 1 cap PO DAILY 05/17/23 06/14/23 5 billion cell sprinkle capsule (Probiotic) acetylcysteine 600 mg capsule 0 mg PO DAILY 05/17/23 06/14/23 ferrous sulfate 325 mg (65 mg 0 mg PO DAILY 05/17/23 06/14/23 iron) tablet (iron) vvdxtogxabra-jzx-qriwg acid-vit 0 tab PO DAILY 05/17/23 06/14/23 K-lycop 400 mcg-20 mcg-370 mcg tablet (Men's 50 Plus Multivitamin) rifaximin 550 mg tablet (Xifaxan) 550 mg PO BID 05/17/23 06/25/23 zinc acetate 50 mg (zinc) capsule 50 mg PO DAILY 05/17/23 06/14/23 baclofen 5 mg tablet 0 mg PO BID PRN muscle spasm 06/25/23 lidocaine 4 % topical patch 0 patch topical DAILY 06/25/23 ondansetron HCl 4 mg tablet 4 mg PO Q8H PRN Nausea 06/25/23 06/25/23 oxycodone 5 mg tablet 0 mg PO Q12H PRN pain 06/25/23 Previous Rx's Medication Instructions Recorded pantoprazole 40 mg tablet,delayed 40 mg PO BID 90 days #180 tabs 02/28/23 release lactulose 10 gram oral packet 10 g PO TID #15 ea 06/21/23 (Kristalose) Results & Data (ED) Vital Signs Vital Signs - 24 hr 06/25/23 16:11 06/25/23 16:12 06/25/23 16:33 Temperature 37.2 C Temperature Source Oral Pulse Rate 68 70 Pulse Rate [Apical] Respiratory Rate 16 Respiratory Effort / Characteristics Non-Labored Respiratory Depth Normal Respiratory Pattern Regular Blood Pressure 130/74 Blood Pressure [Left Arm] Blood Pressure Mean 92 Blood Pressure Mean [Left Arm] Pulse Oximetry 97 97 Oxygen Delivery Method Room Air Room Air Sepsis Recent Fever Within 48 Hours No Sepsis New/Unexplained Change in Mental Status Yes Sepsis Action Taken by Nursing No Action Required 06/25/23 16:33 06/25/23 16:33 06/25/23 18:06 Temperature Temperature Source Pulse Rate Pulse Rate [Apical] 66 68 Respiratory Rate 16 19 Respiratory Effort / Characteristics Respiratory Depth Respiratory Pattern Blood Pressure Blood Pressure [Left Arm] 134/58 L Blood Pressure Mean Blood Pressure Mean [Left Arm] 83 Pulse Oximetry 97 97 98 Oxygen Delivery Method Room Air Room Air Sepsis Recent Fever Within 48 Hours Sepsis New/Unexplained Change in Mental Status Sepsis Action Taken by Nursing 06/25/23 18:43 Temperature Temperature Source Pulse Rate Pulse Rate [Apical] 70 Respiratory Rate 17 Respiratory Effort / Characteristics Respiratory Depth Respiratory Pattern Blood Pressure Blood Pressure [Left Arm] 139/62 Blood Pressure Mean Blood Pressure Mean [Left Arm] 87 Pulse Oximetry 99 Oxygen Delivery Method Room Air Sepsis Recent Fever Within 48 Hours Sepsis New/Unexplained Change in Mental Status Sepsis Action Taken by Nursing Laboratory Data 06/25/23 14:00 06/25/23 14:00 Lab Results 06/25/23 06/25/23 06/25/23 Range/Units 14:00 14:00 14:00 WBC 5.37 (4.8-10.8) K/ul RBC 2.85 L (4.70-6.10) M/uL Hgb 9.4 L (14.0-18.0) g/dl Hct 28.2 L (42.0-52.0) % MCV 98.9 (80.0-100.0) fL MCH 33.0 (25.0-34.0) pg MCHC 33.3 (32.0-36.0) g/dL RDW Std Deviation 72.5 H (36.4-46.3) fL RDW Coeff of [place] 20.0 H (11.5-14.5) % Plt Count 109 L (130-400) K/uL MPV 13.2 H (9.4-12.4) fL Immature Gran % (Auto) 0.6 % Neut % (Auto) 69.4 % Lymph % (Auto) 16.0 % [place] % (Auto) 7.1 % Eos % (Auto) 6.3 % Baso % (Auto) 0.6 % Neut # (Auto) 3.73 (1.40-6.50) K/uL Lymph # (Auto) 0.86 L (1.2-3.4) K/uL [place] # (Auto) 0.38 (0.11-0.59) K/uL Eos # (Auto) 0.34 (0-0.50) K/uL Baso # (Auto) 0.03 (0-0.2) K/uL Immature Gran # (Auto) 0.03 (0.01-0.20) K/uL PT 12.3 H (9.0-12.0) Seconds INR 1.1 (0.9-1.1) Sodium 146 H (136-145) mmol/L Potassium 4.0 (3.5-5.1) mmol/L Chloride 113 H (98-107) mmol/L Carbon Dioxide 26 (21-32) mmol/L Anion Gap 7 (3-11) BUN 37 H (6-23) mg/dl Creatinine 1.37 (0.6-1.4) mg/dl Est Cr Clr Drug Dosing Not Reportable Est GFR ( Amer) 58.9 ml/min Est GFR (Non-Af Amer) 50.8 ml/min BUN/Creatinine Ratio 27.0 H (10-20) Glucose 117 H (70-99(Fasting)) mg/dl Calcium 8.8 (8.6-10.3) mg/dl Magnesium 2.1 (1.7-2.4) mg/dl Total Bilirubin 3.9 H (0.2-1.0) mg/dl AST 50 H (13-39) U/L ALT 35 (7-52) U/L Alkaline Phosphatase 235 H (34-104) U/L Ammonia Troponin I High Sens 7.2 (0-20) pg/ml Total Protein 6.8 (6.0-8.3) gm/dl Albumin 3.1 L (3.4-5.0) gm/dl Globulin 3.7 (2.5-4.0) gm/dl Albumin/Globulin Ratio 0.8 L (0.9-2) Lipase 25 (11-82) U/L TSH (0.300-4.500) uIu/ml Urine Color Urine Appearance (Clear) Urine pH (4.5-7.5) Ur Specific [place] (1.000-1.030) Urine Protein (Negative) Urine Glucose (UA) (Negative) Urine Ketones (Negative) Urine Blood (Negative) Urine Nitrite (Negative) Urine Bilirubin (Negative) Urine Urobilinogen (Negative) Ur Leukocyte Esterase (Negative) Urine WBC (Auto) (0-5) /hpf Urine RBC (Auto) (0-4) /hpf U Hyaline Cast (Auto) (0-5) /lpf U Epithel Cells (Auto) (0-5) /lpf Urine Bacteria (Auto) (Negative) Ur Renal Epithelial Cell SARS-CoV-2, RNA, NAAT (NEGATIVE) 06/25/23 06/25/23 06/25/23 Range/Units 14:00 16:21 16:30 WBC (4.8-10.8) K/ul RBC (4.70-6.10) M/uL Hgb (14.0-18.0) g/dl Hct (42.0-52.0) % MCV (80.0-100.0) fL MCH (25.0-34.0) pg MCHC (32.0-36.0) g/dL RDW Std Deviation (36.4-46.3) fL RDW Coeff of [place] (11.5-14.5) % Plt Count (130-400) K/uL MPV (9.4-12.4) fL Immature Gran % (Auto) % Neut % (Auto) % Lymph % (Auto) % [place] % (Auto) % Eos % (Auto) % Baso % (Auto) % Neut # (Auto) (1.40-6.50) K/uL Lymph # (Auto) (1.2-3.4) K/uL [place] # (Auto) (0.11-0.59) K/uL Eos # (Auto) (0-0.50) K/uL Baso # (Auto) (0-0.2) K/uL Immature Gran # (Auto) (0.01-0.20) K/uL PT (9.0-12.0) Seconds INR (0.9-1.1) Sodium (136-145) mmol/L Potassium (3.5-5.1) mmol/L Chloride (98-107) mmol/L Carbon Dioxide (21-32) mmol/L Anion Gap (3-11) BUN (6-23) mg/dl Creatinine (0.6-1.4) mg/dl Est Cr Clr Drug Dosing Est GFR ( Amer) ml/min Est GFR (Non-Af Amer) ml/min BUN/Creatinine Ratio (10-20) Glucose (70-99(Fasting)) mg/dl Calcium (8.6-10.3) mg/dl Magnesium (1.7-2.4) mg/dl Total Bilirubin (0.2-1.0) mg/dl AST (13-39) U/L ALT (7-52) U/L Alkaline Phosphatase (34-104) U/L Ammonia TNP Troponin I High Sens (0-20) pg/ml Total Protein (6.0-8.3) gm/dl Albumin (3.4-5.0) gm/dl Globulin (2.5-4.0) gm/dl Albumin/Globulin Ratio (0.9-2) Lipase (11-82) U/L TSH 1.176 (0.300-4.500) uIu/ml Urine Color Urine Appearance (Clear) Urine pH (4.5-7.5) Ur Specific [place] (1.000-1.030) Urine Protein (Negative) Urine Glucose (UA) (Negative) Urine Ketones (Negative) Urine Blood (Negative) Urine Nitrite (Negative) Urine Bilirubin (Negative) Urine Urobilinogen (Negative) Ur Leukocyte Esterase (Negative) Urine WBC (Auto) (0-5) /hpf Urine RBC (Auto) (0-4) /hpf U Hyaline Cast (Auto) (0-5) /lpf U Epithel Cells (Auto) (0-5) /lpf Urine Bacteria (Auto) (Negative) Ur Renal Epithelial Cell SARS-CoV-2, RNA, NAAT NEGATIVE (NEGATIVE) 06/25/23 06/25/23 Range/Units 16:50 17:42 WBC (4.8-10.8) K/ul RBC (4.70-6.10) M/uL Hgb (14.0-18.0) g/dl Hct (42.0-52.0) % MCV (80.0-100.0) fL MCH (25.0-34.0) pg MCHC (32.0-36.0) g/dL RDW Std Deviation (36.4-46.3) fL RDW Coeff of [place] (11.5-14.5) % Plt Count (130-400) K/uL MPV (9.4-12.4) fL Immature Gran % (Auto) % Neut % (Auto) % Lymph % (Auto) % [place] % (Auto) % Eos % (Auto) % Baso % (Auto) % Neut # (Auto) (1.40-6.50) K/uL Lymph # (Auto) (1.2-3.4) K/uL [place] # (Auto) (0.11-0.59) K/uL Eos # (Auto) (0-0.50) K/uL Baso # (Auto) (0-0.2) K/uL Immature Gran # (Auto) (0.01-0.20) K/uL PT (9.0-12.0) Seconds INR (0.9-1.1) Sodium (136-145) mmol/L Potassium (3.5-5.1) mmol/L Chloride (98-107) mmol/L Carbon Dioxide (21-32) mmol/L Anion Gap (3-11) BUN (6-23) mg/dl Creatinine (0.6-1.4) mg/dl Est Cr Clr Drug Dosing Est GFR ( Amer) ml/min Est GFR (Non-Af Amer) ml/min BUN/Creatinine Ratio (10-20) Glucose (70-99(Fasting)) mg/dl Calcium (8.6-10.3) mg/dl Magnesium (1.7-2.4) mg/dl Total Bilirubin (0.2-1.0) mg/dl AST (13-39) U/L ALT (7-52) U/L Alkaline Phosphatase (34-104) U/L Ammonia 72.0 Troponin I High Sens (0-20) pg/ml Total Protein (6.0-8.3) gm/dl Albumin (3.4-5.0) gm/dl Globulin (2.5-4.0) gm/dl Albumin/Globulin Ratio (0.9-2) Lipase (11-82) U/L TSH (0.300-4.500) uIu/ml Urine Color [place] Urine Appearance Clear (Clear) Urine pH 7.0 (4.5-7.5) Ur Specific [place] 1.019 (1.000-1.030) Urine Protein Negative (Negative) Urine Glucose (UA) Negative (Negative) Urine Ketones Negative (Negative) Urine Blood 3+ H (Negative) Urine Nitrite Negative (Negative) Urine Bilirubin Negative (Negative) Urine Urobilinogen Positive H (Negative) Ur Leukocyte Esterase Trace H (Negative) Urine WBC (Auto) 1-5 (0-5) /hpf Urine RBC (Auto) >30 H (0-4) /hpf U Hyaline Cast (Auto) 0 (0-5) /lpf U Epithel Cells (Auto) >30 H (0-5) /lpf Urine Bacteria (Auto) Negative (Negative) Ur Renal Epithelial Cell Not Reportable SARS-CoV-2, RNA, NAAT (NEGATIVE) Administered Medications Discontinued Medications Sodium Chloride (Nss) 500 mls @ 999 mls/hr IV .Q31M ONE Stop: 06/25/23 17:40 Last Infusion: 06/25/23 18:02 Dose: 0 mls/hr Documented By: Admin: 06/25/23 17:26 Dose: 999 mls/hr Documented By: Ceftriaxone Sodium (Rocephin) 2,000 mg in 70 mls @ 140 mls/hr IV NOW STA Stop: 06/25/23 19:07 Last Infusion: 06/25/23 19:21 Dose: 0 mls/hr Documented By: Admin: 06/25/23 18:43 Dose: 140 mls/hr Documented By: Ioversol (Optiray 320 100ml) 89 ml IV ONCE ONE Stop: 06/25/23 17:23 Last Admin: 06/25/23 17:23 Dose: 89 ml Documented By: DYLAN Lactulose (Lactulose 200gm/700ml Wtr Enema) 200 gm MN ONCE ONE Stop: 06/25/23 18:24 Last Admin: 06/25/23 19:09 Dose: 200 gm Documented By: Imaging Data Radiologist's Impression: Abdomen/Pelvis CT 06/25/23 16:[address] WITH IV CONTRAST CT DOSE: 1838.50 mGy.cm HISTORY: Acute abdominal pain with nausea and vomiting vomiting, ams TECHNIQUE: Multiaxial CT images of the abdomen and pelvis were performed following the IV administration of 89 cc of Optiray, A dose lowering technique was utilized adhering to the principles of ALARA. COMPARISON STUDY: CT abdomen and pelvis 03/07/2023, 08/03/2022, CT thoracic spine 06/21/2023, MRI lumbar spine 06/16/2023 FINDINGS: Extensive coronary artery calcifications with mild cardiomegaly. Mild subsegmental right basilar atelectasis. No pneumatosis or peritoneum. The study is limited secondary to respiratory motion artifact and portions of the anatomy outside the [id number]. Gynecomastia. The spleen is enlarged measuring up to 17 cm. Unremarkable adrenal glands. Stable 2.3 cm cystic focus within the pancreatic head. Cholelithiasis. Cirrhosis with small amount of ascites again noted. The tips appears patent. Ill-defined area of decreased attenuation again noted within the left hepatic lobe measuring approximately 3 cm on image 19 series 4. Patent portal vein. Cholelithiasis with mildly contracted gallbladder. Some centimeter hypodensities of the kidneys are too small to characterize and favor cysts. Unchanged 1.5 cm intermediate attenuating lesion of the anterior interpolar left kidney. No hydronephrosis. Urinary bladder wall thickening with partial distention. Prostatomegaly. Calcifications of the aorta and branch vessels. Colonic diverticulosis with mild mid sigmoid wall thickening. Moderate colonic fecal retention. Chronic wall thickening of the stomach. Normal appendix. Degenerative changes of the spine, pelvis and hips. Chronic L1 compression deformity. Acute to subacute appearing transversely oriented fracture involving the mid to superior aspect of the T12 vertebral body is again noted with extension into the pedicles. Only minimal superior endplate vertebral body height loss without retropulsion. Unchanged alignment from the prior MRI. Persistent mild paravertebral edema. IMPRESSION: 1. Unchanged appearance of the acute to subacute-appearing T12 fracture with involvement of the bilateral pedicles. Reactive paravertebral edema without asso ciated retropulsion. 2. Chronic L1 compression deformity. 3. Colonic diverticulosis with mild wall thickening of the sigmoid colon. Correlate clinically to exclude developing mild acute diverticulitis. 4. Cirrhosis with splenomegaly, small volume of ascites and patent TIPS. Focal fat versus questionable lesion of the left hepatic lobe again noted measuring 3 cm. 5. Unchanged 1.5 cm indeterminate lesion of the interpolar left kidney. 6. Normal appendix. ACT 112: Negative or not required by law. The above report was generated using voice recognition software. It may contain grammatical, syntax or spelling errors. Electronically signed by: Yovany Gonzalez M.D. 06/25/2023 6:33 PM Chest X-Ray 06/25/23 16:13 XR chest 1V portable HISTORY: Altered mental status. Vomiting. COMPARISON: Chest 06/14/2023. FINDINGS: No pneumothorax. No pleural effusions. There are low lung volumes. The cardiac silhouette remains mildly enlarged. There is mild central pulmonary vascular congestion without overt edema. The left lung is clear. Hazy appearance of the right lateral lung base is likely due to overlapping soft tissue. Otherwise, no new focal lung consolidations to suggest a pneumonia. IMPRESSION: Cardiomegaly with mild congestive change. ACT 112: Negative or not required by law. Electronically signed by: Abdoul Gonzalez M.D. 06/25/2023 5:[address] 06/25/23 16:13 CT head/brain wo con CLINICAL HISTORY: 73 years-old Male with ams, vomiting. Acutely altered mental status TECHNIQUE: Multiple axial CT images of the head were obtained without contrast. A dose lowering technique was utilized adhering to the principles of ALARA. COMPARISON: 06/14/2023. FINDINGS: No acute intracranial hemorrhage, midline shift, intracranial mass, hydrocephalus, territorial ischemia or abnormal extra-axial collection. Involutional changes with chronic microvascular ischemic disease. Cerebrovascular calcifications. The calvarium is intact. Mild polypoid mucosal thickening of the maxillary sinuses. Mastoid air cells are clear. Prior bilateral lens repair. IMPRESSION: No acute intracranial abnormality. ACT 112: Negative or not required by law. The above report was generated using voice recognition software. It may contain grammatical, syntax or spelling errors. Electronically signed by: Yovany Gonzalez M.D. 06/25/2023 6:33 PM Discharge Plan Visit Data Chief Complaint: Altered Mental Status ED Provider: Jonny Hoskins Discharge Problem: Hepatic encephalopathy, Liver disease, Hyperammonemia, Closed T12 spinal fracture Patient Disposition: Being Evaluated by Hospitalist Forms Stand Alone Forms: My [facility] Prescriptions Prescriptions: No Action citalopram [Celexa] 10 mg tablet 10 mg PO QAM allopurinol 100 mg Tablet 0 mg PO DAILY Rx Instructions: last filled april of 2022- pharmacist PER [facility]--STILL TAKING, PER EXT MED HX--NOT ON LIST WHEN LAST FILLED. furosemide [Lasix] 20 mg Tablet 40 mg PO QAM triamcinolone acetonide 0.1 % cream 0 applic TOPICAL BID PRN (Reason: PSORIATIC LESIONS WHEN NEEDED) Rx Instructions: last filled 11-21-22 per pharmacist mirtazapine 30 mg tablet 30 mg PO HS Rx Instructions: filled back in january for 90 ds acetaminophen [Tylenol] 325 mg Tablet 650 mg PO Q8H PRN (Reason: Pain) Rx Instructions: unable to verify with pharmacist pantoprazole 40 mg tablet,delayed release (DR/EC) 40 mg PO BID 90 Days Qty: 180 0RF Rx Instructions: last filled february 28 repaglinide 1 mg tablet 0 mg PO TIDM Rx Instructions: 30 day supply in march per pharmacist zinc acetate 50 mg (zinc) Capsule 50 mg PO DAILY Rx Instructions: unable to verify with pharmacist ferrous sulfate [iron] 325 mg (65 mg iron) Tablet 0 mg PO DAILY Rx Instructions: unable to verify with pharmacist acetylcysteine 600 mg Capsule 0 mg PO DAILY Rx Instructions: unable to verify with pharmacist Xifaxan 550 mg tablet 550 mg PO BID Men's 50 Plus Multivitamin 400-20-370 mcg Tablet 0 tab PO DAILY Rx Instructions: unable to verify with pharmacist Probiotic 5 billion cell Capsule, Sprinkle 1 cap PO DAILY Rx Instructions: unable to verify with pharmacist lactulose [Kristalose] 10 gram packet 10 g PO TID Qty: 15 0RF Rx Instructions: 90 ds back in january ondansetron HCl 4 mg tablet 4 mg PO Q8H PRN (Reason: Nausea) lidocaine 4 % adhesive patch,medicated 0 patch topical DAILY Rx Instructions: unable to verify with [facility] pharmacist may leave on for up to 12 hrs Apply on lower back oxycodone 5 mg tablet 0 mg PO Q12H PRN (Reason: pain) Rx Instructions: unable to verify with [facility] pharmacist baclofen 5 mg tablet 0 mg PO BID PRN (Reason: muscle spasm) Rx Instructions: unable to verify with [facility] pharmacist finasteride 5 mg Tablet 5 mg PO QAM insulin glargine [Lantus U-100 Insulin] 100 unit/mL solution 20 unit subcut HS Referrals Referrals: Francisco Cisse MD [Outside Practitioners] -
[2023-06-25 16:54] LABS: Basophils # (auto) 0.03 K/uL (0-0.2); Basophils % (auto) 0.6 %; Eosinophils # (auto) 0.34 K/uL (0-0.50); Eosinophils % (auto) 6.3 %; Hematocrit (blood only) 28.2 % (42.0-52.0); Hemoglobin 9.4 g/dl (14.0-18.0); Immature Granulocytes # (auto) 0.03 K/uL (0.01-0.20); Immature Granulocytes % (auto) 0.6 %; Lymphocytes # (auto) 0.86 K/uL (1.2-3.4); Mean Corpuscular Hgb Conc 33.3 g/dL (32.0-36.0); Mean Corpuscular Volume 98.9 fL (80.0-100.0); Mean Platelet Volume 13.2 fL (9.4-12.4); Monocytes # (auto) 0.38 K/uL (0.11-0.59); Monocytes % (auto) 7.1 %; Neutrophils # (auto) 3.73 K/uL (1.40-6.50); Neutrophils % (auto) 69.4 %; Platelet Count 109 K/uL (130-400); RDW Standard Deviation 72.5 fL (36.4-46.3); Red Blood Count 2.85 M/uL (4.70-6.10); White Blood Count 5.37 K/ul (4.8-10.8)
[2023-06-25 17:00] LABS: Alanine Aminotransferase 35 U/L (7-52); Albumin Globulin Ratio 0.8 (0.9-2); Albumin Level 3.1 gm/dl (3.4-5.0); Alkaline Phosphatase 235 U/L (34-104); Anion Gap 7 (3-11); Aspartate Aminotransferase 50 U/L (13-39); Bilirubin,Total 3.9 mg/dl (0.2-1.0); Blood Urea Nitrogen 37 mg/dl (6-23); Calcium 8.8 mg/dl (8.6-10.3); Carbon Dioxide 26 mmol/L (21-32); Chloride 113 mmol/L (98-107); Est GFR (African American) 58.9 ml/min; Est GFR (Non-African American) 50.8 ml/min; Globulin 3.7 gm/dl (2.5-4.0); Glucose 117 mg/dl (70-99(Fasting)); Magnesium 2.1 mg/dl (1.7-2.4); Sodium 146 mmol/L (136-145); Total Protein 6.8 gm/dl (6.0-8.3)
[2023-06-25 17:04] LABS: Troponin I High Sensitivity 7.2 pg/ml (0-20)
--- NOTE | 2023-06-25 17:05 | XRay Report ---
XR chest 1V portable HISTORY: Altered mental status. Vomiting. COMPARISON: Chest 06/14/2023. FINDINGS: No pneumothorax. No pleural effusions. There are low lung volumes. The cardiac silhouette r emains mildly enlarged. There is mild central pulmonary vascular congestion without overt edema. The left lung is clear. Hazy appearance of the right lateral lung base is likely due to overlapping soft tissue. Otherwise, no new focal lung consolidations to suggest a pneumonia. IMPRESSION: Cardiomegaly with mild congestive change. ACT 112: Negative or not required by law. Electronically signed by: Abdoul Gonzalez M.D. 06/25/2023 5:04 PM
[2023-06-25 17:06] LABS: INR 1.1 (0.9-1.1); Prothrombin Time 12.3 Seconds (9.0-12.0)
[2023-06-25 17:06] LABS: Appearance Urine Clear (Clear); Bacteria Urine Automated Negative (Negative); Bilirubin Urine Negative (Negative); Blood Urine 3+ (Negative); Cast Urine Automated 0 /lpf (0-5); Color Urine Orange; Epithelial Cell Urine Auto >30 /lpf (0-5); Glucose Urine UA Negative (Negative); Ketones Urine Negative (Negative); Leukocyte Esterase Urine Trace (Negative); Nitrite Urine Negative (Negative); Protein Urine Negative (Negative); RBC Urine Automated >30 /hpf (0-4); Specific Gravity Urine 1.019 (1.000-1.030); Urobilinogen Urine Positive (Negative)
[2023-06-25] MEDS ORDERED: SODIUM CHLORIDE 0.9% 500 ML IV ONE (17:10)
[2023-06-25] MEDS ORDERED: OPTIRAY 320 100ml IV ONE (17:22)
[2023-06-25 17:43] LABS: Lipase 25 U/L (11-82)
[2023-06-25] MEDS ORDERED: LACTULOSE 200GM/700ML WTR ENEMA PR ONE (18:23)
--- NOTE | 2023-06-25 18:34 | CT Scan Report ---
ABDOMEN AND PELVIS CT WITH IV CONTRAST CT DOSE: 1838.50 mGy.cm HISTORY: Acute abdominal pain with nausea and vomiting vomiting, ams TECHNIQUE: Multiaxial CT images of the abdomen and pelvis were performed following the IV administrat ion of 89 cc of Optiray, A dose lowering technique was utilized adhering to the principles of ALARA. COMPARISON STUDY: CT abdomen and pelvis 03/07/2023, 08/03/2022, CT thoracic spine 06/21/2023, MRI lumbar s pine 06/16/2023 FINDINGS: Extensive coronary artery calcifications with mild cardiomegaly. Mild subsegmental right ba silar atelectasis. No pneumatosis or peritoneum. The study is limited secondary to respiratory motion artifact and portions of the anatomy outside the pxolt-ag-xleb. Gynecomastia. The spleen is enlarged measuring up to 17 cm. Unremarkable adrenal glands. Stable 2.3 cm cystic focus within the pancreatic head. Cholelithiasis. Cirrhosis with small amount of ascites again noted. The tips appears patent. I ll-defined area of decreased attenuation again noted within the left hepatic lobe measuring approxima tely 3 cm on image 19 series 4. Patent portal vein. Cholelithiasis with mildly contracted gallbladder . Some centimeter hypodensities of the kidneys are too small to characterize and favor cysts. Unchanged 1.5 cm intermediate attenuating lesion of the anterior interpolar left kidney. No hydronephrosis. Ur inary bladder wall thickening with partial distention. Prostatomegaly. Calcifications of the aorta an d branch vessels. Colonic diverticulosis with mild mid sigmoid wall thickening. Moderate colonic feca l retention. Chronic wall thickening of the stomach. Normal appendix. Degenerative changes of the spi ne, pelvis and hips. Chronic L1 compression deformity. Acute to subacute appearing transversely orien javon fracture involving the mid to superior aspect of the T12 vertebral body is again noted with exten april into the pedicles. Only minimal superior endplate vertebral body height loss without retropulsio n. Unchanged alignment from the prior MRI. Persistent mild paravertebral edema. IMPRESSION: 1. Unchanged appearance of the acute to subacute-appearing T12 fracture with involvement of the bilat eral pedicles. Reactive paravertebral edema without associated retropulsion. 2. Chronic L1 compression deformity. 3. Colonic diverticulosis with mild wall thickening of the sigmoid colon. Correlate clinically to exc lude developing mild acute diverticulitis. 4. Cirrhosis with splenomegaly, small volume of ascites and patent TIPS. Focal fat versus questionabl e lesion of the left hepatic lobe again noted measuring 3 cm. 5. Unchanged 1.5 cm indeterminate lesion of the interpolar left kidney. 6. Normal appendix. ACT 112: Negative or not required by law. The above report was generated using voice recognition software. It may contain grammatical, syntax o r spelling errors. Electronically signed by: Yovany Gonzalez M.D. 06/25/2023 6:33 PM
--- NOTE | 2023-06-25 18:35 | CT Scan Report ---
CT head/brain wo con CLINICAL HISTORY: 73 years-old Male with ams, vomiting. Acutely altered mental status TECHNIQUE: Multiple axial CT images of the head were obtained without contrast. A dose lowering tech nique was utilized adhering to the principles of ALARA. COMPARISON: 06/14/2023. FINDINGS: No acute intracranial hemorrhage, midline shift, intracranial mass, hydrocephalus, territorial ischem ia or abnormal extra-axial collection. Involutional changes with chronic microvascular ischemic disea se. Cerebrovascular calcifications. The calvarium is intact. Mild polypoid mucosal thickening of the maxillary sinuses. Mastoid air cell s are clear. Prior bilateral lens repair. IMPRESSION: No acute intracranial abnormality. ACT 112: Negative or not required by law. The above report was generated using voice recognition software. It may contain grammatical, syntax o r spelling errors. Electronically signed by: Yovany Gonzalez M.D. 06/25/2023 6:33 PM
[2023-06-25] MEDS ORDERED: cefTRIAXone SODIUM 2,000 MG/70 ML BAG IV STA (18:38)
--- NOTE | 2023-06-25 19:07 | History & Physical Report ---
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: (3) Closed T12 spinal fracture: (4) CKD (chronic kidney disease) stage 3, GFR 30-59 ml/min: (5) Insulin dependent type 2 diabetes mellitus: (6) Anemia: (7) Depression: Plan This is a 73yo M with a PMH of 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, hepatocellular carcinoma status post IR embolization, portal vein thrombus as per records, DM2 insulin requiring, chronic pancytopenia (baseline hemoglobin 9), history GAVE/esophageal varices/portal hypertensive gastropathy/radiation proctitis/diverticulosis on endoscopy, pulmonary hypertension, BPH, prostate cancer status post radiation, left renal mass and recent admission for T12 spinal fracture who presents with [facility] with hepatic encephalopathy. Hepatic encephalopathy Liver cirrhosis 2/2 FOFANA Cirrhosis s/p TIPS 2019 and revision 2020 Presenting with increased confusion from [facility] in setting of a few missed lactulose doses Discharged on lactulose 30mg BID along with Xifaxan Encephalopathic on evaluation but clearing up per RN, able to answer yes/no questions, oriented to person only VSS, ammonia level 72, Tbili 3.9, AST 50, INR 1.1 CT head without acute intracranial abnormality, CT abd/pelvis with findings of diverticulosis Did not tolerate lactulose enema in ED but awakened to take 30mg x 1 Plan to continue lactulose 30mg TID Low suspicion for SBP given benign abdominal exam, minimal ascites - given dose of Rocephin in ED and consider additional abx if no significant improvement to mentation with lactulose GI consulted Continue Xifaxan, resume lasix as able Recent fall with closed T12 spinal fracture Admitted a few weeks prior with a T12 fracture Managed non-surgically with TLSO brace at all times when out of bed, lidocaine patch and Tylenol as needed Holding PRN oxycodone and baclofen for now 2/2 ams CKD III Cr 1.37 today (at baseline ~1.2-1.5) Monitor with daily BMP Hypernatremia Mild hyperNa at 146 Giving gentle D5W for 10 hours Daily BMP Insulin-dependent DM II A1c: 5.3 on 05/28/2023 Hold home oral agents SSI while in-patient BSG AC HS or Q6H while NPO Anemia Hgb 9.4 (at baseline) Monitor with daily CBC Depression Resume citalopram, mirtazapine when able to tolerate POs Prostate cancer S/p radiation 2020 DVT Ppx: SCDs for now given recent GI bleeding (if extended admission, consider adding chemical VTE) Code status: FULL PCP: Tanna Dispo: Admission med/tele Patient seen in collaboration with Dr. Walton. Please see addendum. I spent a total of 75 minutes coordinating, documenting, and providing care for this patient excluding time spent in the performance of separately billed services. 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 Patient was admitted to our service earlier this month after fall and found to have T12 fracture that has been managed with pain control, T8 LSO brace at all times when out of bed, lidocaine patch and Tylenol as needed. Also prescribed oxycodone and baclofen as needed for severe pain but minimize use. Patient was doing well per report until yesterday, when he seemed to be developing some confusion. Refused evening lactulose dose and another dose today. Patient became more confused and then somnolent, directed to [facility] for further evaluation and treatment. History obtained from chart review and report as patient is altered. Able to participate with some yes/no questions during interview. Endorses back discomfort. Denies any chest pain or shortness of breath. Oriented to person only. Remainder of ROS unobtainable due to cognitive status. Allergies Allergy/AdvReac Type Severity Reaction Status Date / Time No Known Allergies Allergy Mild Verified 05/22/23 07:55 Home Medications Medication Instructions Recorded Confirmed Type citalopram 10 mg tablet (Celexa) 10 mg PO QAM 03/24/20 06/25/23 History allopurinol 100 mg tablet 200 mg PO DAILY 05/16/20 06/25/23 History finasteride 5 mg tablet 5 mg PO QAM 11/03/21 06/25/23 History furosemide 20 mg tablet (Lasix) 40 mg PO QAM 11/02/22 06/25/23 History insulin glargine 100 unit/mL 20 unit subcut HS 11/05/22 06/25/23 History subcutaneous solution (Lantus U-100 Insulin) acetaminophen 325 mg tablet 650 mg PO Q8H PRN Pain 02/24/23 06/25/23 History (Tylenol) mirtazapine 30 mg tablet 30 mg PO HS 02/24/23 06/25/23 History triamcinolone acetonide 0.1 % 1 applic topical BID PRN PSORIATIC 02/24/23 06/25/23 History topical cream LESIONS WHEN NEEDED pantoprazole 40 mg tablet,delayed 40 mg PO BID 90 days #180 tabs 02/28/23 06/25/23 Rx release repaglinide 1 mg tablet 1 mg PO TIDM 03/07/23 06/25/23 History Lactobacil.acidophilus-Bifido.animalis 1 cap PO DAILY 05/17/23 06/25/23 History 5 billion cell sprinkle capsule (Probiotic) acetylcysteine 600 mg capsule 600 mg PO DAILY 05/17/23 06/25/23 History ferrous sulfate 325 mg (65 mg 325 mg PO DAILY 05/17/23 06/25/23 History iron) tablet (iron) vfabnbdsgrqk-aqr-hyjbv acid-vit 1 tab PO DAILY 05/17/23 06/25/23 History K-lycop 400 mcg-20 mcg-370 mcg tablet (Men's 50 Plus Multivitamin) rifaximin 550 mg tablet (Xifaxan) 550 mg PO BID 05/17/23 06/25/23 History zinc acetate 50 mg (zinc) capsule 50 mg PO DAILY 05/17/23 06/25/23 History lactulose 10 gram oral packet 10 g PO TID #15 ea 06/21/23 06/25/23 Rx (Kristalose) baclofen 5 mg tablet 5 mg PO BID PRN muscle spasm 06/25/23 06/25/23 History lidocaine 4 % topical patch 1 patch topical DAILY PRN Pain 06/25/23 06/25/23 History ondansetron HCl 4 mg tablet 4 mg PO Q8H PRN Nausea 06/25/23 06/25/23 History oxycodone 5 mg tablet 5 mg PO Q12H PRN Severe Pain 06/25/23 06/25/23 History (Scale Score 7-10) Past Med/Surg History Medical History Anemia of chronic disease monthly labs done Anxiety and depression CKD (chronic kidney disease) stage 3, GFR 30-59 ml/min Esophageal varices hx Fatigue on exertion/liver issues have decreased strength GAVE (gastric antral vascular ectasia) pt not sure what this is GERD (gastroesophageal reflux disease) Gout NO ISSUES CURRENTLY History of panic attacks History of recent blood transfusion 11/05/22 Hypertension hx/sometimes will read a little low. Insulin dependent type 2 diabetes mellitus Liver spots recent testing and no changes. Nonalcoholic steatohepatitis (FFOANA) Prostate cancer (11/10/20) hx radiation Psoriasis Rectal bleeding hx of T2DM (type 2 diabetes mellitus) Upper GI bleed hx of Surgical History History of abdominal paracentesis multiple--last 01/14/23 History of colonoscopy with polypectomy History of esophagogastroduodenoscopy (EGD) last 10/25 revealed grade 2 esophageal varices, grade 1 gastric varices STABLE History of left cataract surgery History of prostate biopsy malignant History of right cataract surgery History of tonsillectomy and adenoidectomy S/P TIPS (transjugular intrahepatic portosystemic shunt) Family History Father , "3/4 liver gone due to drinking" Colorectal cancer, Onset Age: 63 Mother Lung cancer Daughter Cancer cervical and thyroid cancers Ovarian cancer Other No family history of adverse response to anesthesia 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 Smoking Status: Never smoker Second Hand Exposure: No; Do You Dip or Chew Tobacco: No; Hx Alcohol Use: No Hx Substance Use: No Preferred Language: Arabic Communication Ability: Effective Visual Impairment: No Limitations Hearing Ability: Normal Food Cart Attendant Required: No Beliefs That Will Affect Care: None marital status: Current Living Situation: Rehab Current Living Situation Comment: [facility] 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 Limited ROS as above per HPI and remainder unobtainable due to reduced cognitive status. Physical Exam Physical Exam: Please see Dr. Walton's addendum for physical exam. Results & Data Results & Data Vital Signs (Past 12 Hours) Vital Signs Temp Pulse Pulse Resp BP BP Pulse Ox 06/25/23 18:43 70 17 139/62 99 06/25/23 18:06 68 19 98 06/25/23 16:33 97 06/25/23 16:33 66 16 134/58 L 97 06/25/23 16:33 97 06/25/23 16:12 37.2 C 70 16 130/74 97 06/25/23 16:11 68 O2 Del Method 06/25/23 18:43 Room Air 06/25/23 18:06 Room Air 06/25/23 16:33 Room Air 06/25/23 16:33 06/25/23 16:33 Room Air 06/25/23 16:12 Room Air 06/25/23 16:11 Laboratory Results Short CBC 06/25/23 Range/Units 14:00 WBC 5.37 (4.8-10.8) K/ul Hgb 9.4 L (14.0-18.0) g/dl Hct 28.2 L (42.0-52.0) % Plt Count 109 L (130-400) K/uL BMP 06/25/23 14:00 Sodium 146 H Potassium 4.0 Chloride 113 H Carbon Dioxide 26 BUN 37 H Creatinine 1.37 Glucose 117 H Calcium 8.8 Liver Function 06/25/23 Range/Units 14:00 Total Bilirubin 3.9 H (0.2-1.0) mg/dl AST 50 H (13-39) U/L ALT 35 (7-52) U/L Alkaline Phosphatase 235 H (34-104) U/L Albumin 3.1 L (3.4-5.0) gm/dl Urine 06/25/23 Range/Units 16:50 Urine Color [place] Urine Appearance Clear (Clear) Urine pH 7.0 (4.5-7.5) Ur Specific [place] 1.019 (1.000-1.030) Urine Protein Negative (Negative) Urine Glucose (UA) Negative (Negative) Diagnostic Findings Abdomen/Pelvis CT 06/25/23 16:[address] WITH IV CONTRAST CT DOSE: 1838.50 mGy.cm HISTORY: Acute abdominal pain with nausea and vomiting vomiting, ams TECHNIQUE: Multiaxial CT images of the abdomen and pelvis were performed following the IV administration of 89 cc of Optiray, A dose lowering technique was utilized adhering to the principles of ALARA. COMPARISON STUDY: CT abdomen and pelvis 03/07/2023, 08/03/2022, CT thoracic spine 06/21/2023, MRI lumbar spine 06/16/2023 FINDINGS: Extensive coronary artery calcifications with mild cardiomegaly. Mild subsegmental right basilar atelectasis. No pneumatosis or peritoneum. The study is limited secondary to respiratory motion artifact and portions of the anatomy outside the rxstd-te-gctn. Gynecomastia. The spleen is enlarged measuring up to 17 cm. Unremarkable adrenal glands. Stable 2.3 cm cystic focus within the pancreatic head. Cholelithiasis. Cirrhosis with small amount of ascites again noted. The tips appears patent. Ill-defined area of decreased attenuation again noted within the left hepatic lobe measuring approximately 3 cm on image 19 series 4. Patent portal vein. Cholelithiasis with mildly contracted gallbladder. Some centimeter hypodensities of the kidneys are too small to characterize and favor cysts. Unchanged 1.5 cm intermediate attenuating lesion of the anterior interpolar left kidney. No hydronephrosis. Urinary bladder wall thickening with partial distention. Prostatomegaly. Calcifications of the aorta and branch vessels. Colonic diverticulosis with mild mid sigmoid wall thickening. Moderate colonic fecal retention. Chronic wall thickening of the stomach. Normal appendix. Degenerative changes of the spine, pelvis and hips. Chronic L1 compression deformity. Acute to subacute appearing transversely oriented fracture involving the mid to superior aspect of the T12 vertebral body is again noted with extension into the pedicles. Only minimal superior endplate vertebral body height loss without retropulsion. Unchanged alignment from the prior MRI. Persistent mild paravertebral edema. IMPRESSION: 1. Unchanged appearance of the acute to subacute-appearing T12 fracture with involvement of the bilateral pedicles. Reactive paravertebral edema without associated retropulsion. 2. Chronic L1 compression deformity. 3. Colonic diverticulosis with mild wall thickening of the sigmoid colon. Correlate clinically to exclude developing mild acute diverticulitis. 4. Cirrhosis with splenomegaly, small volume of ascites and patent TIPS. Focal fat versus questionable lesion of the left hepatic lobe again noted measuring 3 cm. 5. Unchanged 1.5 cm indeterminate lesion of the interpolar left kidney. 6. Normal appendix. ACT 112: Negative or not required by law. The above report was generated using voice recognition software. It may contain grammatical, syntax or spelling errors. Electronically signed by: Yovany Gonzalez M.D. 06/25/2023 6:33 PM Chest X-Ray 06/25/23 16:13 XR chest 1V portable HISTORY: Altered mental status. Vomiting. COMPARISON: Chest 06/14/2023. FINDINGS: No pneumothorax. No pleural effusions. There are low lung volumes. The cardiac silhouette remains mildly enlarged. There is mild central pulmonary vascular congestion without overt edema. The left lung is clear. Hazy appearance of the right lateral lung base is likely due to overlapping soft tissue. Otherwise, no new focal lung consolidations to suggest a pneumonia. IMPRESSION: Cardiomegaly with mild congestive change. ACT 112: Negative or not required by law. Electronically signed by: Abdoul Gonzalez M.D. 06/25/2023 5:[address] 06/25/23 16:13 CT head/brain wo con CLINICAL HISTORY: 73 years-old Male with ams, vomiting. Acutely altered mental status TECHNIQUE: Multiple axial CT images of the head were obtained without contrast. A dose lowering technique was utilized adhering to the principles of ALARA. COMPARISON: 06/14/2023. FINDINGS: No acute intracranial hemorrhage, midline shift, intracranial mass, hydrocephalus, territorial ischemia or abnormal extra-axial collection. Involutional changes with chronic microvascular ischemic disease. Cerebrovascular calcifications. The calvarium is intact. Mild polypoid mucosal thickening of the maxillary sinuses. Mastoid air cells are clear. Prior bilateral lens repair. IMPRESSION: No acute intracranial abnormality. ACT 112: Negative or not required by law. The above report was generated using voice recognition software. It may contain grammatical, syntax or spelling errors. Electronically signed by: Yovany Gonzalez M.D. 06/25/2023 6:33 PM Supervising Physician Co-Signing Physician Notes Patient was seen and examined at bedside with Maura Fitzpatrick PA-C. Chart reviewed. Case discussed with Maura and agree with the documentation above. In summary, this is a 73 year old male with history of FOFANA cirrhosis s/p TIPS, esophageal varices, gastric antral vascular ectasia, portal vein thrombosis, hepatocellular carcinoma, pancytopenia, restrictive lung disease, psoriasis, prostate cancer, left renal mass, DM II, CKD III who presents from [facility] rehab for altered mental status after missed doses of lactulose and is being admitted for hepatic encephalopathy. Patient was recently admitted here from 06/14-06/21 for mechanical fall with T12 fracture and discharged to [facility] on TLSO brace and was noted to be AAOx3 on discharge. During our encounter, lactulose enema was being attempted in ED but was unsuccessful. However, patient was more awake and alert and answered simple questions and followed simple commands. He passed bedside swallowing test. Vitals stable. Labs reviewed. Ammonia 72, no leucocytosis, Hb 9, Na 146, Cr 1.37, AST/ALT 50/35, ALP 235. UA not suggestive of UTI. Abd exam completely benign. Likely hepatic encephalopathy from inadequate dosing/missed dosing of lactulose. Will start on lactulose 30 g tid to titrate to 3-4 loose bowel movements daily, if unable to give po due to mental status, will need to place NGT and give lactulose orally. continue xifaxan. Hold home diuretics. Gentle hydration with d5w for 10 hrs at 50cc/hr for mild hypernatremia, need to watch BG while on D5W. Hold all sedating pain meds and muscle relaxers, will utilize iv tylenol upto 2 gm per day along with lidoderm patch for pain. Keep npo except for ice chips and sips with meds until mental status improves. Low suspicion for SBP at this point given minimal ascites and benign abd exam- he already received a dose of ceftriaxone in ED- consider continuing tomorrow if he does not adequately improve despite adequate BM with lactulose. GI evaluation. Repeat labs in am. Rest as per the note above. On exam- General: Elderly male, Lying in bed, in discomfort due to pain on positioning, on room air HEENT: BRITT[place], MMM Chest: Clear breath sounds bilaterally, no wheezes or crackles CVS: Regular rate and rhythm, normal heart sounds, no murmur Abdomen: Soft, non tender, not distended, normal bowel sounds Neuro: Awake, alert, oriented to self, confused, answers some simple questions, follows simple commands Extremities: No cyanosis, clubbing or edema Skin: Generalized psoriatic rash all over (6) Anemia Anemia type: unspecified type Qualified Code(s): D64.9 - Anemia, unspecified
[2023-06-25] MEDS ORDERED: LACTULOSE SYRUP 20 GM/30 ML UDC PO STA (19:19)
[2023-06-25] MEDS ORDERED: LACTULOSE SYRUP 30 GM/45 ML UDP PO STA (19:45)
[2023-06-25] MEDS ORDERED: ACETAMINOPHEN 1,000 MG/100 ML VIAL IV PRN (19:54)
[2023-06-25] MEDS ORDERED: DEXTROSE 5% 1,000 ML IV SCH (20:00)
[2023-06-25] MEDS ORDERED: GLUCOSE 40% GEL 15 GM TUBE PO PRN (20:41)
[2023-06-25] MEDS ORDERED: DEXTROSE 50% 50 ML SYRINGE IV PRN (20:41)
[2023-06-25] MEDS ORDERED: CARBOHYDRATES FOR HYPOGLYCEMIA PO PRN (20:41)
[2023-06-25] MEDS ORDERED: LIDOCAINE 5% 1 PATCH TD STA (20:41)
[2023-06-25] MEDS ORDERED: ONDANSETRON INJ 2 MG/ML 2 ML VIAL IV PRN (20:41)
[2023-06-25] MEDS ORDERED: GLUCOSE 10 TAB/TUBE PO PRN (20:41)
[2023-06-25] MEDS ORDERED: GLUCAGON FOR INJ 1 MG VIAL SQ PRN (20:41)
[2023-06-25] MEDS: INSULIN ASPART PER UNIT CHARGE SC SCH (21:04)
[2023-06-25] MEDS: LANTUS PER UNIT CHARGE SQ SCH (21:27)
[2023-06-25] MEDS: rifAXIMin 550 MG TABLET PO SCH (21:41)
[2023-06-26 07:20] LABS: Hematocrit (blood only) 25.8 % (42.0-52.0); Hemoglobin 8.7 g/dl (14.0-18.0); Mean Corpuscular Hgb Conc 33.7 g/dL (32.0-36.0); Mean Corpuscular Volume 97.7 fL (80.0-100.0); Mean Platelet Volume 12.6 fL (9.4-12.4); Platelet Count 99 K/uL (130-400); RDW Coefficient of Variation 19.8 % (11.5-14.5); RDW Standard Deviation 70.3 fL (36.4-46.3); Red Blood Count 2.64 M/uL (4.70-6.10); White Blood Count 5.64 K/ul (4.8-10.8)
[2023-06-26 07:44] LABS: Albumin Globulin Ratio 0.8 (0.9-2); Albumin Level 2.8 gm/dl (3.4-5.0); Bilirubin,Total 4.1 mg/dl (0.2-1.0); Calcium 8.6 mg/dl (8.6-10.3); Creatinine Clr Calc Pharmacy 51.5 ml/min; Est GFR (African American) 61.6 ml/min; Est GFR (Non-African American) 53.1 ml/min; Globulin 3.4 gm/dl (2.5-4.0); Phosphorus 3.7 mg/dl (2.5-4.9); Potassium 3.9 mmol/L (3.5-5.1); Total Protein 6.2 gm/dl (6.0-8.3)
[2023-06-26 08:00] LABS: INR 1.1 (0.9-1.1); Partial Thromboplastin Ratio 1.1; Partial Thromboplastin Time 31.8 Seconds (21.0-31.0); Prothrombin Time 12.3 Seconds (9.0-12.0)
[2023-06-26] MEDS: INSULIN ASPART PER UNIT CHARGE SC SCH ×4 (08:05→20:26)
--- NOTE | 2023-06-26 08:05 | Gastrointestinal Consultation ---
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 Plan 1. Avoid narcotics and benzodiazepines as will trigger hep enceph. 2. Lactulose 1-3 x/day, titrate to affect 3 BMs/day. Here, because improved, can give once daily. Continue Rifaximin. 3. Will check Zinc level, may need adjustment of supplement (on 50mg daily) 4. Regular consistency low salt diet w feeding assistance/aspiration precautions. 5. No further GI recommendations. Will sign off. Supervising Physician Co-Signing Physician Notes I saw and evaluated the patient. Patient has a long history of liver disease with complications to include portal hypertension, hepatocellular carcinoma and a prior TIPS placement. We were asked to see the patient with regard to hepatic encephalopathy. Of note the patient did have a recent spinal fracture and was started on narcotics for treatment of pain. The patient is appropriate today after being given a dose of lactulose which was held yesterday at his nursing. Physical examination No obvious distress No Icterus noted today No obvious abdominal distention no pain No asterixis, no slurred speech, patient is Oriented to place date and time this morning Impression: Patient with a history of hepatic encephalopathy likely exacerbated by recent dosing of narcotics. The patient appears to be at his baseline today. We would recommend resumption of his lactulose 1-3 times daily to have 2 bowel movements per day in addition to use of rifaximin twice daily. Please call with any additional questions or concerns, GI to sign off to really History of Present Illness Reason for Consultation: hepatic encephalopathy Requesting Physician: Maura Randhawa PA-C Attending Physician: Marcus Sheppard MD History of Present Illness Mr. Luis Hale is a 73 ur old male pt of Dr. Cisse w a hx of DM-2, pulm HTN, BPH, prostate CA S/P radiation, colonic angiectasias, radiation proctitis, left renal mass and recent T12 spinal fx who was brought from [facility] for confusion, likely hepatic encephalopathy. He is followed in GI clinic for NAFLD cirrhosis w GAVE and EV, S/P TIPs, HCC S/O IR embolization, and prior hepatic encephalopathy. On arrival, urine w blood but no WBCs/leukocyte esterase. CT head and CXR normal. This morning, on exam, he is very drowsy, but when awakened, he is oriented, to time/place/person and answers questions slowly but appropriately. He does complain of diffuse abd pain though no tenderness on exam. He tells us that he would like to eat. Allergies Allergy/AdvReac Type Severity Reaction Status Date / Time No Known Allergies Allergy Mild Verified 05/22/23 07:55 Home Medications Medication Instructions Recorded Confirmed Type citalopram 10 mg tablet (Celexa) 10 mg PO QAM 03/24/20 06/25/23 History allopurinol 100 mg tablet 200 mg PO DAILY 05/16/20 06/25/23 History finasteride 5 mg tablet 5 mg PO QAM 11/03/21 06/25/23 History furosemide 20 mg tablet (Lasix) 40 mg PO QAM 11/02/22 06/25/23 History insulin glargine 100 unit/mL 20 unit subcut HS 11/05/22 06/25/23 History subcutaneous solution (Lantus U-100 Insulin) acetaminophen 325 mg tablet 650 mg PO Q8H PRN Pain 02/24/23 06/25/23 History (Tylenol) mirtazapine 30 mg tablet 30 mg PO HS 02/24/23 06/25/23 History triamcinolone acetonide 0.1 % 1 applic topical BID PRN PSORIATIC 02/24/23 History topical cream LESIONS WHEN NEEDED pantoprazole 40 mg tablet,delayed 40 mg PO BID 90 days #180 tabs 02/28/23 06/25/23 Rx release repaglinide 1 mg tablet 1 mg PO TIDM 03/07/23 06/25/23 History Lactobacil.acidophilus-Bifido.animalis 1 cap PO DAILY 05/17/23 06/25/23 History 5 billion cell sprinkle capsule (Probiotic) acetylcysteine 600 mg capsule 600 mg PO DAILY 05/17/23 06/25/23 History ferrous sulfate 325 mg (65 mg 325 mg PO DAILY 05/17/23 06/25/23 History iron) tablet (iron) rpgteapbapsj-inb-sbszg acid-vit 1 tab PO DAILY 05/17/23 06/25/23 History K-lycop 400 mcg-20 mcg-370 mcg tablet (Men's 50 Plus Multivitamin) rifaximin 550 mg tablet (Xifaxan) 550 mg PO BID 05/17/23 06/25/23 History zinc acetate 50 mg (zinc) capsule 50 mg PO DAILY 05/17/23 06/25/23 History lactulose 10 gram oral packet 10 g PO TID #15 ea 06/21/23 06/25/23 Rx (Kristalose) baclofen 5 mg tablet 5 mg PO BID PRN muscle spasm 06/25/23 06/25/23 History lidocaine 4 % topical patch 1 patch topical DAILY PRN Pain 06/25/23 06/25/23 History ondansetron HCl 4 mg tablet 4 mg PO Q8H PRN Nausea 06/25/23 06/25/23 History oxycodone 5 mg tablet 5 mg PO Q12H PRN Severe Pain 06/25/23 06/25/23 History (Scale Score 7-10) Patient History Medical History Anemia of chronic disease monthly labs done Anxiety and depression CKD (chronic kidney disease) stage 3, GFR 30-59 ml/min Esophageal varices hx Fatigue on exertion/liver issues have decreased strength GAVE (gastric antral vascular ectasia) pt not sure what this is GERD (gastroesophageal reflux disease) Gout NO ISSUES CURRENTLY History of panic attacks History of recent blood transfusion 11/05/22 Hypertension hx/sometimes will read a little low. Insulin dependent type 2 diabetes mellitus Liver spots recent testing and no changes. Nonalcoholic steatohepatitis (FOFANA) Prostate cancer (11/10/20) hx radiation Psoriasis Rectal bleeding hx of T2DM (type 2 diabetes mellitus) Upper GI bleed hx of Surgical History History of abdominal paracentesis multiple--last 01/14/23 History of colonoscopy with polypectomy History of esophagogastroduodenoscopy (EGD) last 10/25 revealed grade 2 esophageal varices, grade 1 gastric varices STABLE History of left cataract surgery History of prostate biopsy malignant History of right cataract surgery History of tonsillectomy and adenoidectomy S/P TIPS (transjugular intrahepatic portosystemic shunt) Family History Father , "3/4 liver gone due to drinking" Colorectal cancer, Onset Age: 63 Mother Lung cancer Daughter Cancer cervical and thyroid cancers Ovarian cancer Other No family history of adverse response to anesthesia 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 Smoking Status: Never smoker Second Hand Exposure: No; Do You Dip or Chew Tobacco: No; Hx Alcohol Use: No Hx Substance Use: No Preferred Language: Kinyarwanda Communication Ability: Effective Visual Impairment: No Limitations Hearing Ability: Normal Lye Boiler Required: No Beliefs That Will Affect Care: None marital status: Current Living Situation: Rehab Current Living Situation Comment: [facility] 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 How many Children do You have: 6 How many Children do You have Comment: one , eldest daughter in her sleep from seizure disorder Other Information That Helps Us Care for You: No Feels Safe at Home: Yes Childhood Exposure to Second-Hand Smoke: Yes Diet Comment: "I watch my sugar, average fasting is 140 mg/dl" caffeine: Yes (cola, sugar free, decaf) during the past year weight has: remained stable Dental Care, Regularly: No Physical Activity Frequency: Does not Exercise Seatbelt Use: always Sunscreen Use: Yes Assistive Devices: Walker Review of Systems Review of Systems: ROS: Gen: + weakness, No fevers, no weight loss Eyes: No eye redness, or pain, no recent vision changes Resp: No SOB, no cough Cardio: No palpitations/irregular beats, no chest pain GI: As per HPI, otherwise (-) : Denies pain on urination Skin: No jaundice, itching or new rashes M/S: back pain Physical Exam Constitutional: well developed, well nourished, + ill appearing (chronically) and average body habitus Eyes: PERRL, conjunctivae normal, anicteric sclerae ENMT: external ear and nose normal, oropharynx normal Neck: trachea midline, no thyromegaly Respiratory: normal respiratory effort, lungs clear to auscultation Cardiovascular: RRR, no murmur, no edema Gastrointestinal (Abdomen): Inspection/Auscultation: + abdomen distended (mildly distended w minimal ascites) Percussion/Palpation: + abdomen tender (mild diffuse tenderness on exam) and abdomen soft; no hepatosplenomegaly Musculoskeletal: no cyanosis or clubbing, extremities motor strength 5/5 Skin: mild jaundice; psoriasis Neurologic: PERRL, EOMI, accommodation nl, no face palsy, no dysarthria No asterixis Psychiatric: A/A/O drowsy Lymphatic: no cervical or axillary lymphadenopathy Results & Data Vital Signs (Past 12 Hours) Vital Signs Temp Pulse Pulse Pulse Resp BP Pulse Ox 06/26/23 07:15 36.9 C 62 18 148/72 H 97 06/26/23 02:59 37.2 C 62 18 134/54 L 95 06/25/23 22:04 65 06/25/23 21:05 65 06/25/23 23:06 36.9 C 66 18 124/56 L 98 06/25/23 20:30 36.8 C 63 14 133/56 L 98 06/25/23 20:14 O2 Del Method 06/26/23 07:15 Room Air 06/26/23 02:59 Room Air 06/25/23 22:04 06/25/23 21:05 06/25/23 23:06 Room Air 06/25/23 20:30 Room Air 06/25/23 20:14 Room Air Laboratory Results WBC 5.6, Hb 8.7, Hct 25, Plts 99, PT 1.1,INR 12.3, Na 144, K 3.8, Cl 113, Co2 24, BUN 33, Cr 1.32, glucose 120 T bili 4.1, AST 39, ALT 29, Alk Phos 222 Ammonia 72 Alb 2.8 Diagnostic Findings CTAP w IV 06/26/23: 1. Unchanged appearance of the acute to subacute-appearing T12 fracture with involvement of the bilateral pedicles. Reactive paravertebral edema without associated retropulsion. 2. Chronic L1 compression deformity. 3. Colonic diverticulosis with mild wall thickening of the sigmoid colon. Correlate clinically to exclude developing mild acute diverticulitis. 4. Cirrhosis with splenomegaly, small volume of ascites and patent TIPS. Focal fat versus questionable lesion of the left hepatic lobe again noted measuring 3 cm. 5. Unchanged 1.5 cm indeterminate lesion of the interpolar left kidney.
[2023-06-26] MEDS: rifAXIMin 550 MG TABLET PO SCH ×2 (08:17→20:45)
[2023-06-26] MEDS: LANTUS PER UNIT CHARGE SQ SCH ×2 (08:17→20:25)
[2023-06-26] MEDS: PANTOprazole 40 MG in SYRINGE 0 ML IV SCH (08:17)
[2023-06-26] MEDS: LACTULOSE SYRUP 30 GM/45 ML UDP PO SCH ×4 (08:18→20:46)
--- NOTE | 2023-06-26 11:10 | Electrocardiogram Report ---
Test Reason : Blood Pressure : / mmHG Vent. Rate : 068 BPM Atrial Rate : 068 BPM P-R Int : 186 ms QRS Dur : 080 ms QT Int : 388 ms P-R-T Axes : 067 -06 070 degrees QTc Int : 412 ms Normal sinus rhythm Diffuse Minor Nonspecific ST and T wave abnormality Abnormal ECG When compared with ECG of 14-JUN-2023 10:45, Premature ventricular complexes are no longer Present Nonspecific ST and T wave abnormality now present Confirmed by Pedro Carlson ([id number]) on 06/26/2023 11:10:26 AM Referred By: [facility] Confirmed By:Pedro Carlson
--- NOTE | 2023-06-26 12:39 | Hospitalist Progress Note ---
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: (3) Closed T12 spinal fracture: (4) CKD (chronic kidney disease) stage 3, GFR 30-59 ml/min: (5) Insulin dependent type 2 diabetes mellitus: (6) Anemia: (7) Depression: Plan This is a 73yo M with a PMH of 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, hepatocellular carcinoma status post IR embolization, portal vein thrombus as per records, DM2 insulin requiring, chronic pancytopenia (baseline hemoglobin 9), history GAVE/esophageal varices/portal hypertensive gastropathy/radiation proctitis/diverticulosis on endoscopy, pulmonary hypertension, BPH, prostate cancer status post radiation, left renal mass and recent admission for T12 spinal fracture who presents with [facility] with hepatic encephalopathy. Hepatic encephalopathy Liver cirrhosis 2/2 FOFANA Cirrhosis s/p TIPS 2019 and revision 2020 Presenting with increased confusion from [facility] in setting of a few missed lactulose doses He was admitted to 4 days prior to admission for due to his spinal fracture. Discharged on lactulose 30mg BID along with Xifaxan VSS, ammonia level 72, Tbili 3.9, AST 50, INR 1.1 CT head without acute intracranial abnormality, CT abd/pelvis with findings of diverticulosis continue lactulose 30mg TID. Titrate to 3 bowel movement per day. Low suspicion for SBP given benign abdominal exam, minimal ascites - given dose of Rocephin in ED and consider additional abx if no significant improvement to mentation with lactulose GI recommends lactulose and rifaximin Recent fall with closed T12 spinal fracture Admitted a few weeks prior with a T12 fracture Managed non-surgically with TLSO brace at all times when out of bed, lidocaine patch and Tylenol as needed Holding PRN oxycodone and baclofen for now 2/2 ams CKD III At baseline Monitor with daily BMP Hypernatremia Mild hyperNa at 146 Improved. Due to decreased oral intake. Speech eval and will increase oral hydration. Insulin-dependent DM II A1c: 5.3 on 05/28/2023 Hold home oral agents SSI while in-patient BSG AC HS or Q6H while NPO Anemia Hgb 9.4 (at baseline) Monitor with daily CBC Depression Will resume citalopram, mirtazapine when able to tolerate POs Prostate cancer S/p radiation 2020 DVT Ppx: SCDs for now given recent GI bleeding (if extended admission, consider adding chemical VTE) Code status: FULL PCP: Tanna Dispo: Admission med/tele Time spent evaluating patient, direct bedside care, chart review, placing orders, interpretation of diagnostic studies, discussion with consultants, patient, and family members, as well as other required patient management activities is 60 minutes. Please note the above document was generated using voice recognition software. It may contain grammatical, syntax or spelling errors. Any formal questions or concerns about the content, text or information contained within the body of this dictation should be directly addressed to the provider for clarification Admission and Anticipated Discharge Date Admission Date: June 25, 2023 Subjective Patient seen and examined at bedside. He appears tired and lethargic. Oriented to place. He reports that he was [facility] prior to admission. However, he was unable to tell me the reason for admission to acute rehab. Review of Systems Review of Systems: All systems reviewed & are unremarkable except as noted in Subjective Physical Exam Physical Exam: General-appears lethargic. Oriented to self and place. Eyes-icterus present Neck- no JVD Lungs- clear breath sounds bilaterally, no crackles or wheezing Heart- normal rate, regular rhythm; no murmurs Abdomen- normal bowel sounds, nondistended, soft, nontender Extremities- no pretibial edema, no calf tenderness Back-positive tenderness to the lower thoracic region No edema/erythema/hematoma Neuro-appears lethargic. Oriented to self and place. Grossly moves all extremities. Skin- warm & dry Results & Data Results & Data Vital Signs (Past 12 Hours) Vital Signs Temp Pulse Resp BP Pulse Ox O2 Del Method 06/26/23 11:16 37.0 C 66 18 147/71 H 96 Room Air 06/26/23 07:15 36.9 C 62 18 148/72 H 97 Room Air 06/26/23 02:59 37.2 C 62 18 134/54 L 95 Room Air Laboratory Results Laboratory Results WBC 5.64 K/ul (4.8-10.8) 06/26/23 06:41 RBC 2.64 M/uL (4.70-6.10) L 06/26/23 06:41 Hgb 8.7 g/dl (14.0-18.0) L 06/26/23 06:41 Hct 25.8 % (42.0-52.0) L 06/26/23 06:41 MCV 97.7 fL (80.0-100.0) 06/26/23 06:41 MCH 33.0 pg (25.0-34.0) 06/26/23 06:41 MCHC 33.7 g/dL (32.0-36.0) 06/26/23 06:41 RDW Std Deviation 70.3 fL (36.4-46.3) H 06/26/23 06:41 RDW Coeff of [place] 19.8 % (11.5-14.5) H 06/26/23 06:41 Plt Count 99 K/uL (130-400) L 06/26/23 06:41 MPV 12.6 fL (9.4-12.4) H 06/26/23 06:41 Immature Gran % (Auto) 0.6 % 06/25/23 14:00 Neut % (Auto) 69.4 % 06/25/23 14:00 Lymph % (Auto) 16.0 % 06/25/23 14:00 [place] % (Auto) 7.1 % 06/25/23 14:00 Eos % (Auto) 6.3 % 06/25/23 14:00 Baso % (Auto) 0.6 % 06/25/23 14:00 Neut # (Auto) 3.73 K/uL (1.40-6.50) 06/25/23 14:00 Lymph # (Auto) 0.86 K/uL (1.2-3.4) L 06/25/23 14:00 [place] # (Auto) 0.38 K/uL (0.11-0.59) 06/25/23 14:00 Eos # (Auto) 0.34 K/uL (0-0.50) 06/25/23 14:00 Baso # (Auto) 0.03 K/uL (0-0.2) 06/25/23 14:00 Immature Gran # (Auto) 0.03 K/uL (0.01-0.20) 06/25/23 14:00 PT 12.3 Seconds (9.0-12.0) H 06/26/23 06:41 INR 1.1 (0.9-1.1) 06/26/23 06:41 APTT 31.8 Seconds (21.0-31.0) H 06/26/23 06:41 PTT Ratio 1.1 06/26/23 06:41 Sodium 144 mmol/L (136-145) 06/26/23 06:41 Potassium 3.9 mmol/L (3.5-5.1) 06/26/23 06:41 Chloride 113 mmol/L (98-107) H 06/26/23 06:41 Carbon Dioxide 24 mmol/L (21-32) 06/26/23 06:41 Anion Gap 7 (3-11) 06/26/23 06:41 BUN 33 mg/dl (6-23) H 06/26/23 06:41 Creatinine 1.32 mg/dl (0.6-1.4) 06/26/23 06:41 Est Cr Clr Drug Dosing 51.5 ml/min 06/26/23 06:41 Est GFR ( Amer) 61.6 ml/min 06/26/23 06:41 Est GFR (Non-Af Amer) 53.1 ml/min 06/26/23 06:41 BUN/Creatinine Ratio 25.0 (10-20) H 06/26/23 06:41 Glucose 120 mg/dl (70-99(Fasting)) H 06/26/23 06:41 POC Glucose 171 mg/dl (70-99) H 06/26/23 11:18 Calcium 8.6 mg/dl (8.6-10.3) 06/26/23 06:41 Phosphorus 3.7 mg/dl (2.5-4.9) 06/26/23 06:41 Magnesium 2.0 mg/dl (1.7-2.4) 06/26/23 06:41 Total Bilirubin 4.1 mg/dl (0.2-1.0) H 06/26/23 06:41 AST 39 U/L (13-39) 06/26/23 06:41 ALT 29 U/L (7-52) 06/26/23 06:41 Alkaline Phosphatase 222 U/L (34-104) H 06/26/23 06:41 Ammonia 72.0 umol/L (18-72) 06/25/23 17:42 Troponin I High Sens 7.2 pg/ml (0-20) 06/25/23 14:00 Total Protein 6.2 gm/dl (6.0-8.3) 06/26/23 06:41 Albumin 2.8 gm/dl (3.4-5.0) L 06/26/23 06:41 Globulin 3.4 gm/dl (2.5-4.0) 06/26/23 06:41 Albumin/Globulin Ratio 0.8 (0.9-2) L 06/26/23 06:41 Lipase 25 U/L (11-82) 06/25/23 14:00 TSH 1.176 uIu/ml (0.300-4.500) 06/25/23 14:00 Urine Color [place] 06/25/23 16:50 Urine Appearance Clear (Clear) 06/25/23 16:50 Urine pH 7.0 (4.5-7.5) 06/25/23 16:50 Ur Specific [place] 1.019 (1.000-1.030) 06/25/23 16:50 Urine Protein Negative (Negative) 06/25/23 16:50 Urine Glucose (UA) Negative (Negative) 06/25/23 16:50 Urine Ketones Negative (Negative) 06/25/23 16:50 Urine Blood 3+ (Negative) H 06/25/23 16:50 Urine Nitrite Negative (Negative) 06/25/23 16:50 Urine Bilirubin Negative (Negative) 06/25/23 16:50 Urine Urobilinogen Positive (Negative) H 06/25/23 16:50 Ur Leukocyte Esterase Trace (Negative) H 06/25/23 16:50 Urine WBC (Auto) 1-5 /hpf (0-5) 06/25/23 16:50 Urine RBC (Auto) >30 /hpf (0-4) H 06/25/23 16:50 U Hyaline Cast (Auto) 0 /lpf (0-5) 06/25/23 16:50 U Epithel Cells (Auto) >30 /lpf (0-5) H 06/25/23 16:50 Urine Bacteria (Auto) Negative (Negative) 06/25/23 16:50 Ur Renal Epithelial Cell Not Reportable 06/25/23 16:50 Nasal Screen MRSA (PCR) Negative (Negative) 06/25/23 23:50 SARS-CoV-2, RNA, NAAT NEGATIVE (NEGATIVE) 06/25/23 16:30 Impressions Abdomen/Pelvis CT 06/25/23 16:[address] WITH IV CONTRAST CT DOSE: 1838.50 mGy.cm HISTORY: Acute abdominal pain with nausea and vomiting vomiting, ams TECHNIQUE: Multiaxial CT images of the abdomen and pelvis were performed following the IV administration of 89 cc of Optiray, A dose lowering technique was utilized adhering to the principles of ALARA. COMPARISON STUDY: CT abdomen and pelvis 03/07/2023, 08/03/2022, CT thoracic spine 06/21/2023, MRI lumbar spine 06/16/2023 FINDINGS: Extensive coronary artery calcifications with mild cardiomegaly. Mild subsegmental right basilar atelectasis. No pneumatosis or peritoneum. The study is limited secondary to respiratory motion artifact and portions of the anatomy outside the [id number]. Gynecomastia. The spleen is enlarged measuring up to 17 cm. Unremarkable adrenal glands. Stable 2.3 cm cystic focus within the pancreatic head. Cholelithiasis. Cirrhosis with small amount of ascites again noted. The tips appears patent. Ill-defined area of decreased attenuation again noted within the left hepatic lobe measuring approximately 3 cm on image 19 series 4. Patent portal vein. Cholelithiasis with mildly contracted gallbladder. Some centimeter hypodensities of the kidneys are too small to characterize and favor cysts. Unchanged 1.5 cm intermediate attenuating lesion of the anterior interpolar left kidney. No hydronephrosis. Urinary bladder wall thickening with partial distention. Prostatomegaly. Calcifications of the aorta and branch vessels. Colonic diverticulosis with mild mid sigmoid wall thickening. Moderate colonic fecal retention. Chronic wall thickening of the stomach. Normal appendix. Degenerative changes of the spine, pelvis and hips. Chronic L1 compression deformity. Acute to subacute appearing transversely oriented fracture involving the mid to superior aspect of the T12 vertebral body is again noted with extension into the pedicles. Only minimal superior endplate vertebral body height loss without retropulsion. Unchanged alignment from the prior MRI. Persistent mild paravertebral edema. IMPRESSION: 1. Unchanged appearance of the acute to subacute-appearing T12 fracture with involvement of the bilateral pedicles. Reactive paravertebral edema without associated retropulsion. 2. Chronic L1 compression deformity. 3. Colonic diverticulosis with mild wall thickening of the sigmoid colon. Correlate clinically to exclude developing mild acute diverticulitis. 4. Cirrhosis with splenomegaly, small volume of ascites and patent TIPS. Focal fat versus questionable lesion of the left hepatic lobe again noted measuring 3 cm. 5. Unchanged 1.5 cm indeterminate lesion of the interpolar left kidney. 6. Normal appendix. ACT 112: Negative or not required by law. The above report was generated using voice recognition software. It may contain grammatical, syntax or spelling errors. Electronically signed by: Yovany Gonzalez M.D. 06/25/2023 6:33 PM Chest X-Ray 06/25/23 16:13 XR chest 1V portable HISTORY: Altered mental status. Vomiting. COMPARISON: Chest 06/14/2023. FINDINGS: No pneumothorax. No pleural effusions. There are low lung volumes. The cardiac silhouette remains mildly enlarged. There is mild central pulmonary vascular congestion without overt edema. The left lung is clear. Hazy appearance of the right lateral lung base is likely due to overlapping soft tissue. Otherwise, no new focal lung consolidations to suggest a pneumonia. IMPRESSION: Cardiomegaly with mild congestive change. ACT 112: Negative or not required by law. Electronically signed by: Abdoul Gonzalez M.D. 06/25/2023 5:[address] 06/25/23 16:13 CT head/brain wo con CLINICAL HISTORY: 73 years-old Male with ams, vomiting. Acutely altered mental status TECHNIQUE: Multiple axial CT images of the head were obtained without contrast. A dose lowering technique was utilized adhering to the principles of ALARA. COMPARISON: 06/14/2023. FINDINGS: No acute intracranial hemorrhage, midline shift, intracranial mass, hydrocephalus, territorial ischemia or abnormal extra-axial collection. Involutional changes with chronic microvascular ischemic disease. Cerebrovascular calcifications. The calvarium is intact. Mild polypoid mucosal thickening of the maxillary sinuses. Mastoid air cells are clear. Prior bilateral lens repair. IMPRESSION: No acute intracranial abnormality. ACT 112: Negative or not required by law. The above report was generated using voice recognition software. It may contain grammatical, syntax or spelling errors. Electronically signed by: Yovany Gonzalez M.D. 06/25/2023 6:33 PM (6) Anemia Anemia type: unspecified type Qualified Code(s): D64.9 - Anemia, unspecified
[2023-06-26] MEDS ORDERED: ACETAMINOPHEN 325 MG TAB PO PRN (17:43)
[2023-06-27] MEDS ORDERED: MoRPHine SULFATE 2 MG/ML CARP IV STA (03:39)
[2023-06-27 04:42] VITALS: O2SAT 98
[2023-06-27 07:28] LABS: Hematocrit (blood only) 26.6 % (42.0-52.0); Mean Corpuscular Hemoglobin 33.5 pg (25.0-34.0); Mean Corpuscular Hgb Conc 33.8 g/dL (32.0-36.0); Mean Corpuscular Volume 98.9 fL (80.0-100.0); Mean Platelet Volume 12.4 fL (9.4-12.4); Platelet Count 98 K/uL (130-400); RDW Coefficient of Variation 19.7 % (11.5-14.5); RDW Standard Deviation 70.6 fL (36.4-46.3); Red Blood Count 2.69 M/uL (4.70-6.10); White Blood Count 5.22 K/ul (4.8-10.8)
[2023-06-27 07:43] LABS: Albumin Globulin Ratio 0.8 (0.9-2); Albumin Level 2.9 gm/dl (3.4-5.0); BUN Creatinine Ratio 24.7 (10-20); Bilirubin,Total 3.1 mg/dl (0.2-1.0); Calcium 8.5 mg/dl (8.6-10.3); Creatinine Clr Calc Pharmacy 46.5 ml/min; Est GFR (African American) 54.5 ml/min; Globulin 3.6 gm/dl (2.5-4.0); Total Protein 6.5 gm/dl (6.0-8.3)
[2023-06-27] MEDS: LANTUS PER UNIT CHARGE SQ SCH (08:26)
[2023-06-27] MEDS: INSULIN ASPART PER UNIT CHARGE SC SCH ×2 (08:26→12:55)
[2023-06-27] MEDS: LACTULOSE SYRUP 30 GM/45 ML UDP PO SCH ×2 (08:29→14:38)
[2023-06-27] MEDS: rifAXIMin 550 MG TABLET PO SCH (08:29)
[2023-06-27] MEDS: ACETAMINOPHEN 325 MG TAB PO SCH ×2 (08:31→14:38)
[2023-06-27] MEDS: PANTOprazole 40 MG in SYRINGE 0 ML IV SCH (08:32)
[2023-06-27 12:02] VITALS: TEMP 97.7
--- NOTE | 2023-06-27 13:41 | Hospitalist Progress Note ---
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 Hepatic encephalopathy Liver cirrhosis 2/2 FOFANA Cirrhosis s/p TIPS 2019 and revision 2020 Presenting with increased confusion from [facility] in setting of a few missed lactulose doses He was admitted to 4 days prior to admission for due to his spinal fracture. Discharged on lactulose 30mg BID along with Xifaxan VSS, ammonia level 72, Tbili 3.9, AST 50, INR 1.1 CT head without acute intracranial abnormality, CT abd/pelvis with findings of diverticulosis Continue on lactulose 30 mg 3 times daily and rifaximin. Low suspicion for SBP given benign abdominal exam, minimal ascites - given dose of Rocephin in ED and consider additional abx if no significant improvement to mentation with lactulose GI recommends lactulose and rifaximin Recent fall with closed T12 spinal fracture Admitted a few weeks prior with a T12 fracture Managed non-surgically with TLSO brace at all times when out of bed, lidocaine patch and Tylenol as needed Holding PRN oxycodone and baclofen for now 2/2 ams Continue lidocaine patch and Tylenol. CKD III At baseline Monitor with daily BMP Hypernatremia Mild hyperNa at 146 Improved. Due to decreased oral intake. Encourage oral hydration. Insulin-dependent DM II A1c: 5.3 on 05/28/2023 Hold home oral agents SSI while in-patient BSG AC HS or Q6H while NPO Anemia Hgb 9.4 (at baseline) Monitor with daily CBC Depression Will resume citalopram, mirtazapine when able to tolerate POs Prostate cancer S/p radiation 2020 DVT Ppx: SCDs for now given recent GI bleeding (if extended admission, consider adding chemical VTE) Code status: FULL PCP: Tanna Dispo: From [facility] which to acute rehab. Discussed with Dr. Tatum from [facility]. Patient was not able to get rifaximin for the time he was admitted there. Patient to be transferred back when transport is available. Time spent evaluating patient, direct bedside care, chart review, placing orders, interpretation of diagnostic studies, discussion with consultants, patient, and family members, as well as other required patient management activities is 60 minutes. Please note the above document was generated using voice recognition software. It may contain grammatical, syntax or spelling errors. Any formal questions or concerns about the content, text or information contained within the body of this dictation should be directly addressed to the provider for clarification Admission and Anticipated Discharge Date Admission Date: June 25, 2023 Subjective Patient seen and examined at bedside. Appears to be more awake and oriented. Vital stable. He reports that back pain is much better compared to previous admission. Review of Systems Review of Systems: All systems reviewed & are unremarkable except as noted in Subjective Physical Exam 2 Physical Exam: General-awake, alert orient x3. Eyes-icterus present Neck- no JVD Lungs- clear breath sounds bilaterally, no crackles or wheezing Heart- normal rate, regular rhythm; no murmurs Abdomen- normal bowel sounds, nondistended, soft, nontender Extremities- no pretibial edema, no calf tenderness Back-no tenderness noted on lower thoracic region. Neuro-awake, oriented x3. Skin- warm & dry Results & Data Results & Data Vital Signs (Past 12 Hours) Vital Signs Temp Pulse Pulse Resp BP BP Pulse Ox 06/27/23 12:01 36.5 C 68 16 141/53 H 98 06/27/23 07:41 36.9 C 63 18 148/70 H 98 06/27/23 06:00 65 06/27/23 04:00 36.8 C 63 18 153/70 H 98 O2 Del Method 06/27/23 12:01 Room Air 06/27/23 07:41 Room Air 06/27/23 06:00 06/27/23 04:00 Room Air Laboratory Results Laboratory Results WBC 5.22 K/ul (4.8-10.8) 06/27/23 06:37 RBC 2.69 M/uL (4.70-6.10) L 06/27/23 06:37 Hgb 9.0 g/dl (14.0-18.0) L 06/27/23 06:37 Hct 26.6 % (42.0-52.0) L 06/27/23 06:37 MCV 98.9 fL (80.0-100.0) 06/27/23 06:37 MCH 33.5 pg (25.0-34.0) 06/27/23 06:37 MCHC 33.8 g/dL (32.0-36.0) 06/27/23 06:37 RDW Std Deviation 70.6 fL (36.4-46.3) H 06/27/23 06:37 RDW Coeff of [place] 19.7 % (11.5-14.5) H 06/27/23 06:37 Plt Count 98 K/uL (130-400) L 06/27/23 06:37 MPV 12.4 fL (9.4-12.4) 06/27/23 06:37 Immature Gran % (Auto) 0.6 % 06/25/23 14:00 Neut % (Auto) 69.4 % 06/25/23 14:00 Lymph % (Auto) 16.0 % 06/25/23 14:00 [place] % (Auto) 7.1 % 06/25/23 14:00 Eos % (Auto) 6.3 % 06/25/23 14:00 Baso % (Auto) 0.6 % 06/25/23 14:00 Neut # (Auto) 3.73 K/uL (1.40-6.50) 06/25/23 14:00 Lymph # (Auto) 0.86 K/uL (1.2-3.4) L 06/25/23 14:00 [place] # (Auto) 0.38 K/uL (0.11-0.59) 06/25/23 14:00 Eos # (Auto) 0.34 K/uL (0-0.50) 06/25/23 14:00 Baso # (Auto) 0.03 K/uL (0-0.2) 06/25/23 14:00 Immature Gran # (Auto) 0.03 K/uL (0.01-0.20) 06/25/23 14:00 PT 12.3 Seconds (9.0-12.0) H 06/26/23 06:41 INR 1.1 (0.9-1.1) 06/26/23 06:41 APTT 31.8 Seconds (21.0-31.0) H 06/26/23 06:41 PTT Ratio 1.1 06/26/23 06:41 Sodium 141 mmol/L (136-145) 06/27/23 06:37 Potassium 4.0 mmol/L (3.5-5.1) 06/27/23 06:37 Chloride 115 mmol/L (98-107) H 06/27/23 06:37 Carbon Dioxide 22 mmol/L (21-32) 06/27/23 06:37 Anion Gap 4 (3-11) 06/27/23 06:37 BUN 36 mg/dl (6-23) H 06/27/23 06:37 Creatinine 1.46 mg/dl (0.6-1.4) H 06/27/23 06:37 Est Cr Clr Drug Dosing 46.5 ml/min 06/27/23 06:37 Est GFR ( Amer) 54.5 ml/min 06/27/23 06:37 Est GFR (Non-Af Amer) 47.0 ml/min 06/27/23 06:37 BUN/Creatinine Ratio 24.7 (10-20) H 06/27/23 06:37 Glucose 191 mg/dl (70-99(Fasting)) H 06/27/23 06:37 POC Glucose 236 mg/dl (70-99) H 06/27/23 11:46 Calcium 8.5 mg/dl (8.6-10.3) L 06/27/23 06:37 Phosphorus 3.7 mg/dl (2.5-4.9) 06/26/23 06:41 Magnesium 2.0 mg/dl (1.7-2.4) 06/26/23 06:41 Total Bilirubin 3.1 mg/dl (0.2-1.0) H 06/27/23 06:37 AST 59 U/L (13-39) H 06/27/23 06:37 ALT 38 U/L (7-52) 06/27/23 06:37 Alkaline Phosphatase 298 U/L (34-104) H 06/27/23 06:37 Ammonia 72.0 umol/L (18-72) 06/25/23 17:42 Troponin I High Sens 7.2 pg/ml (0-20) 06/25/23 14:00 Total Protein 6.5 gm/dl (6.0-8.3) 06/27/23 06:37 Albumin 2.9 gm/dl (3.4-5.0) L 06/27/23 06:37 Globulin 3.6 gm/dl (2.5-4.0) 06/27/23 06:37 Albumin/Globulin Ratio 0.8 (0.9-2) L 06/27/23 06:37 Lipase 25 U/L (11-82) 06/25/23 14:00 TSH 1.176 uIu/ml (0.300-4.500) 06/25/23 14:00 Urine Color [place] 06/25/23 16:50 Urine Appearance Clear (Clear) 06/25/23 16:50 Urine pH 7.0 (4.5-7.5) 06/25/23 16:50 Ur Specific [place] 1.019 (1.000-1.030) 06/25/23 16:50 Urine Protein Negative (Negative) 06/25/23 16:50 Urine Glucose (UA) Negative (Negative) 06/25/23 16:50 Urine Ketones Negative (Negative) 06/25/23 16:50 Urine Blood 3+ (Negative) H 06/25/23 16:50 Urine Nitrite Negative (Negative) 06/25/23 16:50 Urine Bilirubin Negative (Negative) 06/25/23 16:50 Urine Urobilinogen Positive (Negative) H 06/25/23 16:50 Ur Leukocyte Esterase Trace (Negative) H 06/25/23 16:50 Urine WBC (Auto) 1-5 /hpf (0-5) 06/25/23 16:50 Urine RBC (Auto) >30 /hpf (0-4) H 06/25/23 16:50 U Hyaline Cast (Auto) 0 /lpf (0-5) 06/25/23 16:50 U Epithel Cells (Auto) >30 /lpf (0-5) H 06/25/23 16:50 Urine Bacteria (Auto) Negative (Negative) 06/25/23 16:50 Ur Renal Epithelial Cell Not Reportable 06/25/23 16:50 Nasal Screen MRSA (PCR) Negative (Negative) 06/25/23 23:50 SARS-CoV-2, RNA, NAAT NEGATIVE (NEGATIVE) 06/25/23 16:30 Impressions Abdomen/Pelvis CT 06/25/23 16:[address] WITH IV CONTRAST CT DOSE: 1838.50 mGy.cm HISTORY: Acute abdominal pain with nausea and vomiting vomiting, ams TECHNIQUE: Multiaxial CT images of the abdomen and pelvis were performed following the IV administration of 89 cc of Optiray, A dose lowering technique was utilized adhering to the principles of ALARA. COMPARISON STUDY: CT abdomen and pelvis 03/07/2023, 08/03/2022, CT thoracic spine 06/21/2023, MRI lumbar spine 06/16/2023 FINDINGS: Extensive coronary artery calcifications with mild cardiomegaly. Mild subsegmental right basilar atelectasis. No pneumatosis or peritoneum. The study is limited secondary to respiratory motion artifact and portions of the anatomy outside the [id number]. Gynecomastia. The spleen is enlarged measuring up to 17 cm. Unremarkable adrenal glands. Stable 2.3 cm cystic focus within the pancreatic head. Cholelithiasis. Cirrhosis with small amount of ascites again noted. The tips appears patent. Ill-defined area of decreased attenuation again noted within the left hepatic lobe measuring approximately 3 cm on image 19 series 4. Patent portal vein. Cholelithiasis with mildly contracted gallbladder. Some centimeter hypodensities of the kidneys are too small to characterize and favor cysts. Unchanged 1.5 cm intermediate attenuating lesion of the anterior interpolar left kidney. No hydronephrosis. Urinary bladder wall thickening with partial distention. Prostatomegaly. Calcifications of the aorta and branch vessels. Colonic diverticulosis with mild mid sigmoid wall thickening. Moderate colonic fecal retention. Chronic wall thickening of the stomach. Normal appendix. Degenerative changes of the spine, pelvis and hips. Chronic L1 compression deformity. Acute to subacute appearing transversely oriented fracture involving the mid to superior aspect of the T12 vertebral body is again noted with extension into the pedicles. Only minimal superior endplate vertebral body height loss without retropulsion. Unchanged alignment from the prior MRI. Persistent mild paravertebral edema. IMPRESSION: 1. Unchanged appearance of the acute to subacute-appearing T12 fracture with involvement of the bilateral pedicles. Reactive paravertebral edema without associated retropulsion. 2. Chronic L1 compression deformity. 3. Colonic diverticulosis with mild wall thickening of the sigmoid colon. Correlate clinically to exclude developing mild acute diverticulitis. 4. Cirrhosis with splenomegaly, small volume of ascites and patent TIPS. Focal fat versus questionable lesion of the left hepatic lobe again noted measuring 3 cm. 5. Unchanged 1.5 cm indeterminate lesion of the interpolar left kidney. 6. Normal appendix. ACT 112: Negative or not required by law. The above report was generated using voice recognition software. It may contain grammatical, syntax or spelling errors. Electronically signed by: Yovany Gonzalez M.D. 06/25/2023 6:33 PM Chest X-Ray 06/25/23 16:13 XR chest 1V portable HISTORY: Altered mental status. Vomiting. COMPARISON: Chest 06/14/2023. FINDINGS: No pneumothorax. No pleural effusions. There are low lung volumes. The cardiac silhouette remains mildly enlarged. There is mild central pulmonary vascular congestion without overt edema. The left lung is clear. Hazy appearance of the right lateral lung base is likely due to overlapping soft tissue. Otherwise, no new focal lung consolidations to suggest a pneumonia. IMPRESSION: Cardiomegaly with mild congestive change. ACT 112: Negative or not required by law. Electronically signed by: Abdoul Gonzalez M.D. 06/25/2023 5:[address] 06/25/23 16:13 CT head/brain wo con CLINICAL HISTORY: 73 years-old Male with ams, vomiting. Acutely altered mental status TECHNIQUE: Multiple axial CT images of the head were obtained without contrast. A dose lowering technique was utilized adhering to the principles of ALARA. COMPARISON: 06/14/2023. FINDINGS: No acute intracranial hemorrhage, midline shift, intracranial mass, hydrocephalus, territorial ischemia or abnormal extra-axial collection. Involutional changes with chronic microvascular ischemic disease. C erebrovascular calcifications. The calvarium is intact. Mild polypoid mucosal thickening of the maxillary sinuses. Mastoid air cells are clear. Prior bilateral lens repair. IMPRESSION: No acute intracranial abnormality. ACT 112: Negative or not required by law. The above report was generated using voice recognition software. It may contain grammatical, syntax or spelling errors. Electronically signed by: Yovany Gonzalez M.D. 06/25/2023 6:33 PM (6) Anemia Anemia type: unspecified type Qualified Code(s): D64.9 - Anemia, unspecified
[2023-06-27 15:19] VITALS: BP 153/70
[2023-06-27 15:50] VITALS: PULSE 65
--- NOTE | 2023-06-27 16:07 | Discharge Summary ---
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 Patient was admitted to our service earlier this month after fall and found to have T12 fracture that has been managed with pain control, T8 LSO brace at all times when out of bed, lidocaine patch and Tylenol as needed. Also prescribed oxycodone and baclofen as needed for severe pain but minimize use. Patient was doing well per report until yesterday, when he seemed to be developing some confusion. Refused evening lactulose dose and another dose today. Patient became more co nfused and then somnolent, directed to [facility] ED for further evaluation and treatment. History obtained from chart review and report as patient is altered. Able to participate with some yes/no questions during interview. Endorses back discomfort. Denies any chest pain or shortness of breath. Oriented to person only. Remainder of ROS unobtainable due to cognitive status. Admission Exam Per Admitting Provider General: Elderly male, Lying in bed, in discomfort due to pain on positioning, on room air HEENT: [place]ITT[place], MMM Chest: Clear breath sounds bilaterally, no wheezes or crackles CVS: Regular rate and rhythm, normal heart sounds, no murmur Abdomen: Soft, non tender, not distended, normal bowel sounds Neuro: Awake, alert, oriented to self, confused, answers some simple questions, follows simple commands Extremities: No cyanosis, clubbing or edema Skin: Generalized psoriatic rash all over Principal Diagnosis Hepatic encephalopathy Discharge Exam General-awake, alert orient x3. Eyes-icterus present Neck- no JVD Lungs- clear breath sounds bilaterally, no crackles or wheezing Heart- normal rate, regular rhythm; no murmurs Abdomen- normal bowel sounds, nondistended, soft, nontender Extremities- no pretibial edema, no calf tenderness Back-no tenderness noted on lower thoracic region. Neuro-awake, oriented x3. 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: (3) Closed T12 spinal fracture: (4) CKD (chronic kidney disease) stage 3, GFR 30-59 ml/min: (5) Insulin dependent type 2 diabetes mellitus: (6) Anemia: (7) Depression: Plan This is a 73yo M with a PMH of 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 Hepatic encephalopathy Liver cirrhosis 2/2 FOFANA Cirrhosis s/p TIPS 2019 and revision 2020 Presenting with increased confusion from [facility] in setting of a few missed lactulose doses He was admitted to 4 days prior to admission for due to his spinal fracture. Discharged on lactulose 30mg BID along with Xifaxan VSS, ammonia level 72, Tbili 3.9, AST 50, INR 1.1 CT head without acute intracranial abnormality, CT abd/pelvis with findings of diverticulosis During the hospitalization, patient was started on lactulose up to every 3 hours as needed. Patient mentation improved throughout the course of the hospitalization. At discharge, patient was AOx3. Baclofen and oxycodone were stopped. Patient was discharged back to acute rehab Hypernatremia Mild hyperNa at 146 Improved. Due to decreased oral intake. Encourage oral hydration. Please note the above document was generated using voice recognition software. It may contain grammatical, syntax or spelling errors. Any formal questions or concerns about the content, text or information contained within the body of this dictation should be directly addressed to the provider for clarification Total Time Total Time Spent Total Time Spent (In Minutes): 45 Total Time Includes: Examination of the Patient, Discharge Planning, Medication Reconciliation, Communication With Other Providers and Other Discharge Plan Discharge Items Patient Disposition: Transfer Inpatient Rehab Fac Reason For Visit: HEPATIC ENCEPHALOPATHY Discharge Diagnosis: Hepatic encephalopathy. Activity: Resume your previous activity Non-emergency contact: Primary Care Provider Call non-emergency contact if: you have any medication questions and your symptoms worsen Follow-up/Referrals: [facility] [Primary Care Provider] - Diet: Regular Addtl Attending Provider Instructions: You Were admitted here due to hepatic encephalopathy. The likely cause for the encephalopathy is due to oxycodone and baclofen. You can continue to use Tylenol and lidocaine patch for pain control. Oxycodone and baclofen may be used with very close supervision. Please use TLSO brace at all times when out of bed. Continue physical therapy at rehab Pending Studies at Discharge: No Stand-Alone Forms: [facility] Skilled Items Patient informed of condition?: Yes DNR: No Discharge Level of Care: Acute rehab Communicable Disease: No Discharge Prognosis: Stable Lines: None Urinary Catheter: No Medications and DC Order Prescriptions: Continued citalopram [Celexa] 10 mg tablet 10 mg PO QAM allopurinol 100 mg Tablet 200 mg PO DAILY furosemide [Lasix] 20 mg Tablet 40 mg PO QAM triamcinolone acetonide 0.1 % cream 1 applic TOPICAL BID PRN (Reason: PSORIATIC LESIONS WHEN NEEDED) mirtazapine 30 mg tablet 30 mg PO HS acetaminophen [Tylenol] 325 mg Tablet 650 mg PO Q8H PRN (Reason: Pain) pantoprazole 40 mg tablet,delayed release (DR/EC) 40 mg PO BID 90 Days Qty: 180 0RF repaglinide 1 mg tablet 1 mg PO TIDM Rx Instructions: 30 day supply in march per pharmacist zinc acetate 50 mg (zinc) Capsule 50 mg PO DAILY Rx Instructions: unable to verify with pharmacist ferrous sulfate [iron] 325 mg (65 mg iron) Tablet 325 mg PO DAILY acetylcysteine 600 mg Capsule 600 mg PO DAILY Xifaxan 550 mg tablet 550 mg PO BID Men's 50 Plus Multivitamin 400-20-370 mcg Tablet 1 tab PO DAILY Probiotic 5 billion cell Capsule, Sprinkle 1 cap PO DAILY Rx Instructions: unable to verify with pharmacist lactulose [Kristalose] 10 gram packet 10 g PO TID Qty: 15 0RF Rx Instructions: 90 ds back in january ondansetron HCl 4 mg tablet 4 mg PO Q8H PRN (Reason: Nausea) lidocaine 4 % adhesive patch,medicated 1 patch topical DAILY PRN (Reason: Pain) Rx Instructions: may leave on for up to 12 hrs Apply on lower back finasteride 5 mg Tablet 5 mg PO QAM insulin glargine [Lantus U-100 Insulin] 100 unit/mL solution 20 unit subcut HS Discontinued oxycodone 5 mg tablet 5 mg PO Q12H PRN (Reason: Severe Pain (Scale Score 7-10)) baclofen 5 mg tablet 5 mg PO BID PRN (Reason: muscle spasm) Rx Instructions: unable to verify with pharmacist Discharge Orders: Discharge Order (Routine); Ordered 06/27/23 Ordered By: Marcus Sheppard Admission Data Admit Date/Time: 06/25/23 19:44 Attending Provider: Marcus Sheppard Admit Provider: Garrett Walton Primary Care Provider: [facility] Other Providers: Garrett Walton ; Edis Price ; [facility] Other Interventions: Discharge Summary Assessment (RN) Last Done: 06/27/23 15:17
[2023-07-01 17:53] LABS: Zinc 64 mcg/dL (60-130)
== END 2023-06-27 16:19 | DRG 441 ==
LOC: ED 15:53 → SUATTDRO 19:44 → 2N 19:44

== ENCOUNTER 2023-08-08 17:58 | Inpatient (IN) ==
[2023-08-08 18:39] LABS: Hematocrit (blood only) 23.8 % (42.0-52.0); Hemoglobin 8.1 g/dl (14.0-18.0); Mean Corpuscular Hemoglobin 34.5 pg (25.0-34.0); Mean Corpuscular Volume 101.3 fL (80.0-100.0); Mean Platelet Volume 12.8 fL (9.4-12.4); Platelet Count 72 K/uL (130-400); RDW Coefficient of Variation 17.2 % (11.5-14.5); RDW Standard Deviation 61.9 fL (36.4-46.3); Red Blood Count 2.35 M/uL (4.70-6.10); White Blood Count 2.69 K/ul (4.8-10.8)
[2023-08-08 18:47] LABS: Alanine Aminotransferase 22 U/L (7-52); Albumin Globulin Ratio 0.9 (0.9-2); Albumin Level 2.9 gm/dl (3.4-5.0); Alkaline Phosphatase 203 U/L (34-104); Anion Gap 3 (3-11); Aspartate Aminotransferase 45 U/L (13-39); Blood Urea Nitrogen 26 mg/dl (6-23); Calcium 8.1 mg/dl (8.6-10.3); Carbon Dioxide 23 mmol/L (21-32); Chloride 115 mmol/L (98-107); Est GFR (African American) 82.2 ml/min; Est GFR (Non-African American) 70.9 ml/min; Globulin 3.3 gm/dl (2.5-4.0); Glucose 115 mg/dl (70-99(Fasting)); Potassium 4.4 mmol/L (3.5-5.1); Sodium 141 mmol/L (136-145); Total Protein 6.2 gm/dl (6.0-8.3)
[2023-08-08 18:54] LABS: Troponin I High Sensitivity 7.7 pg/ml (0-20)
[2023-08-08 18:56] LABS: INR 1.1 (0.9-1.1); Partial Thromboplastin Time 29.3 Seconds (21.0-31.0); Prothrombin Time 12.3 Seconds (9.0-12.0)
--- NOTE | 2023-08-08 19:15 | Emergency Department Note ---
Impression & Plan Acute upper gastrointestinal bleeding, Acute lower GI bleeding, Anemia, Liver disease, Thrombocytopenia ED Provider Note NAME: MERRITT TAPIA AGE: 73 SEX: M : 1950 ARRIVES VIA: Walk-In INFORMANT: Patient, ED PROVIDER(S): Salvador Aly DO CHIEF COMPLAINT: GI bleeding HPI: The patient is a 73-year-old male who has a history of nonalcoholic cirrhosis as well as upper GI bleeding. He presented to the emergency department for an evaluation of bleeding. The patient has been having rectal bleeding as well as hemoptysis. He has a history of varices. He has been banded in the past. He denies having any nausea or vomiting at this time. He denies having any fever. He has been compliant with his outpatient medications. He has been having generalized weakness as well. ROS: See above HPI for pertinent positives & negatives. A total of 10 systems reviewed and were otherwise negative. PAST MEDICAL HISTORY: See Below PAST SURGICAL HISTORY: See Below FAMILY HISTORY: See Below SOCIAL HISTORY: See Below HOME MEDICATIONS: See Below ALLERGIES: See Below VITALS: See Below PHYSICAL EXAMINATION: GENERAL: Patient is awake alert in no acute distress patient is resting comfortably and showing no signs of anxiety EYES: The conjunctivae are pale. The pupils are round and reactive. EARS, NOSE, MOUTH AND THROAT: The nose is without any evidence of any deformity. Mucous membranes are moist. Tongue is midline. NECK: The neck is nontender and supple. RESPIRATORY: Normal respiratory effort is noted there is no evidence of wheezing rhonchi or rales CARDIOVASCULAR: Regular rate and rhythm noted there no murmurs rubs or gallops normal S1 normal S2. GASTROINTESTINAL: The abdomen was mildly distended but soft. There is no tenderness guarding rigidity. Rectal exam revealed gross blood. MUSCULOSKELETAL/EXTREMITIES: There is no evidence of gross deformity full range of motion is noted in the hips and shoulders. SKIN: Skin was cool and dry. There is pedal edema bilaterally. NEUROLOGIC: Patient is awake alert and oriented x3 MEDICAL DECISION MAKING: The patient is a 73-year-old male who presented to the emergency department for an evaluation of upper and lower GI bleeding. The patient was found to have anemia but his hemoglobin appears to be at baseline. I discussed the patient's laboratory and radiographic studies with him. I discussed his condition with the on-call [facility] hospitalist group. They have agreed to evaluate the patient in the emergency department for further management and disposition. I also discussed this case with the on-call construction driver. Triage Nursing notes reviewed. Prior medical records reviewed Vital Signs: reviewed and remarkable for bradycardia and hypertension. Differential diagnosis: Diverticulosis, AVM, coagulopathy, colitis, inflammatory bowel disease, malignancy, Jodee-Rm tear, esophagitis, peptic ulcer disease, variceal bleed, gastritis, epistaxis, fissure, hemorrhoids, as well as other pathologies. ER treatment provided: See below Diagnostics interpreted by me: ECG: EKG was obtained in the emergency department. My interpretation is sinus bradycardia 59 bpm. PVCs were noted. Poor R wave progression was noted. This was compared to a tracing from July 24, 2023. No significant changes were noted. Cardiac Monitoring: An order was placed for continuous cardiac monitoring. The monitor shows a rate of 56 bpm with sinus bradycardia. Laboratory studies: As stated above and show below. Imaging studies: See below. Radiographic imaging was reviewed by myself Consultation(s): I discussed this case with Dr. Frances who is on-call for gastroenterology. I discussed this case with Dr. Rivera who is on-call for the [facility] hospitalist group. 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 Liver spots Under surveillance, stable per patient Prostate cancer Hx radiation Psoriasis Spinal fracture of T12 vertebra Upper GI bleed Hx Surgical History History of abdominal paracentesis Multiple, most recent 01/2023 History of colonoscopy with polypectomy History of esophagogastroduodenoscopy (EGD) Most recent 05/2023 [facility] History of left cataract surgery History of prostate biopsy malignant History of right cataract surgery History of tonsillectomy and adenoidectomy S/P TIPS (transjugular intrahepatic portosystemic shunt) Family History Father , "3/4 liver gone due to drinking" Colorectal cancer, Onset Age: 63 Mother Lung cancer Daughter Cancer cervical and thyroid cancers Ovarian cancer Other No family history of adverse response to anesthesia 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 Smoking Status: Never smoker Second Hand Exposure: No; Do You Dip or Chew Tobacco: No; Hx Alcohol Use: No Hx Substance Use: No Preferred Language: Nepali Communication Ability: Impaired Visual Impairment: No Limitations Hearing Ability: Normal Barking Machine Feeder Required: No Beliefs That Will Affect Care: None marital status: Current Living Situation: Spouse 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 How many Children do You have: 6 How many Children do You have Comment: one , eldest daughter in her sleep from seizure disorder Feels Safe at Home: Yes Childhood Exposure to Second-Hand Smoke: Yes Diet Comment: "I watch my sugar, average fasting is 140 mg/dl" caffeine: Yes (cola, sugar free, decaf) during the past year weight has: remained stable Dental Care, Regularly: No Physical Activity Frequency: Does not Exercise Seatbelt Use: always Sunscreen Use: Yes Assistive Devices: Walker Allergies Allergies Allergy/AdvReac Type Severity Reaction Status Date / Time No Known Allergies Allergy Mild Verified 07/24/23 15:13 Home Meds Home Medications Medication Instructions Recorded Confirmed citalopram 10 mg tablet (Celexa) 10 mg PO QAM 03/24/20 08/08/23 allopurinol 100 mg tablet 200 mg PO QAM 05/16/20 08/08/23 finasteride 5 mg tablet 5 mg PO QAM 11/03/21 08/08/23 furosemide 20 mg tablet (Lasix) 40 mg PO QAM 11/02/22 08/08/23 insulin glargine 100 unit/mL 22 unit subcut HS 11/05/22 08/08/23 subcutaneous solution (Lantus U-100 Insulin) acetaminophen 325 mg tablet 650 mg PO Q8H PRN Pain 02/24/23 08/08/23 (Tylenol) triamcinolone acetonide 0.1 % 1 applic topical BID PRN PSORIATIC 02/24/23 08/08/23 topical cream LESIONS WHEN NEEDED Lactobacil.acidophilus-Bifido.animalis 1 cap PO QAM 05/17/23 08/08/23 5 billion cell sprinkle capsule (Probiotic) acetylcysteine 600 mg capsule 600 mg PO QAM 05/17/23 08/08/23 ferrous sulfate 325 mg (65 mg 325 mg PO QAM 05/17/23 08/08/23 iron) tablet (iron) jrepvhhdxvor-htc-modlb acid-vit 1 tab PO DAILY 05/17/23 08/08/23 K-lycop 400 mcg-20 mcg-370 mcg tablet (Men's 50 Plus Multivitamin) rifaximin 550 mg tablet (Xifaxan) 550 mg PO BID 05/17/23 08/08/23 zinc acetate 50 mg (zinc) capsule 50 mg PO QAM 05/17/23 08/08/23 baclofen 5 mg tablet 5 mg PO BID 07/24/23 08/08/23 lactulose 10 gram oral packet 10 g PO BID 08/08/23 08/08/23 (Kristalose) Previous Rx's Medication Instructions Recorded pantoprazole 40 mg tablet,delayed 40 mg PO BID 90 days #180 tabs 02/28/23 release oxycodone 5 mg tablet 5 mg PO Q6H PRN pain #12 tabs 07/10/23 Results & Data (ED) Vital Signs Vital Signs - 24 hr 08/08/23 18:02 08/08/23 18:39 08/08/23 18:58 Temperature 36.5 C Temperature Source Temporal Artery Scan Pulse Rate 58 L 58 L Pulse Rate [Apical] 63 Pulse Rate from SpO2 Sensor Pulse Rhythm Regular Respiratory Rate 20 19 Respiratory Effort / Characteristics Non-Labored Spontaneous Respiratory Depth Normal Blood Pressure 137/89 Blood Pressure [Left Arm] 148/77 H Blood Pressure Mean 105 Blood Pressure Mean [Left Arm] 100 Pulse Oximetry 97 97 Oxygen Delivery Method Room Air Room Air Sepsis Recent Fever Within 48 Hours No Sepsis New/Unexplained Change in Mental Status No Sepsis Action Taken by Nursing No Action Required 08/08/23 18:58 08/08/23 18:39 08/08/23 18:40 Temperature Temperature Source Pulse Rate 63 57 L 60 Pulse Rate [Apical] Pulse Rate from SpO2 Sensor 56 L 55 L Pulse Rhythm Regular Respiratory Rate 16 16 19 Respiratory Effort / Characteristics Respiratory Depth Blood Pressure Blood Pressure [Left Arm] Blood Pressure Mean Blood Pressure Mean [Left Arm] Pulse Oximetry 98 98 98 Oxygen Delivery Method Sepsis Recent Fever Within 48 Hours Sepsis New/Unexplained Change in Mental Status Sepsis Action Taken by Nursing 08/08/23 18:50 08/08/23 19:00 08/08/23 19:00 Temperature Temperature Source Pulse Rate 62 58 L Pulse Rate [Apical] Pulse Rate from SpO2 Sensor 56 L 57 L Pulse Rhythm Respiratory Rate 19 14 Respiratory Effort / Characteristics Respiratory Depth Blood Pressure 148/77 H Blood Pressure [Left Arm] Blood Pressure Mean 115 Blood Pressure Mean [Left Arm] Pulse Oximetry 99 99 Oxygen Delivery Method Sepsis Recent Fever Within 48 Hours Sepsis New/Unexplained Change in Mental Status Sepsis Action Taken by Nursing 08/08/23 19:10 08/08/23 19:20 08/08/23 19:30 Temperature Temperature Source Pulse Rate 60 60 Pulse Rate [Apical] Pulse Rate from SpO2 Sensor 59 L 60 Pulse Rhythm Respiratory Rate 19 17 Respiratory Effort / Characteristics Respiratory Depth Blood Pressure 129/73 Blood Pressure [Left Arm] Blood Pressure Mean 102 Blood Pressure Mean [Left Arm] Pulse Oximetry 98 98 Oxygen Delivery Method Sepsis Recent Fever Within 48 Hours Sepsis New/Unexplained Change in Mental Status Sepsis Action Taken by Nursing 08/08/23 19:30 08/08/23 19:40 08/08/23 19:50 Temperature Temperature Source Pulse Rate 64 63 60 Pulse Rate [Apical] Pulse Rate from SpO2 Sensor 56 L 60 59 L Pulse Rhythm Respiratory Rate 16 16 15 Respiratory Effort / Characteristics Respiratory Depth Blood Pressure Blood Pressure [Left Arm] Blood Pressure Mean Blood Pressure Mean [Left Arm] Pulse Oximetry 99 98 99 Oxygen Delivery Method Sepsis Recent Fever Within 48 Hours Sepsis New/Unexplained Change in Mental Status Sepsis Action Taken by Nursing 08/08/23 20:00 08/08/23 20:00 08/08/23 20:10 Temperature Temperature Source Pulse Rate 60 61 Pulse Rate [Apical] Pulse Rate from SpO2 Sensor 58 L 61 Pulse Rhythm Respiratory Rate 15 20 Respiratory Effort / Characteristics Respiratory Depth Blood Pressure 154/80 H Blood Pressure [Left Arm] Blood Pressure Mean 111 Blood Pressure Mean [Left Arm] Pulse Oximetry 99 99 Oxygen Delivery Method Sepsis Recent Fever Within 48 Hours Sepsis New/Unexplained Change in Mental Status Sepsis Action Taken by Nursing 08/08/23 20:20 08/08/23 20:30 08/08/23 20:30 Temperature Temperature Source Pulse Rate 60 63 Pulse Rate [Apical] Pulse Rate from SpO2 Sensor 60 57 L Pulse Rhythm Respiratory Rate 13 20 Respiratory Effort / Characteristics Respiratory Depth Blood Pressure 147/77 H Blood Pressure [Left Arm] Blood Pressure Mean 103 Blood Pressure Mean [Left Arm] Pulse Oximetry 99 99 Oxygen Delivery Method Sepsis Recent Fever Within 48 Hours Sepsis New/Unexplained Change in Mental Status Sepsis Action Taken by Nursing 08/08/23 20:40 08/08/23 20:50 08/08/23 21:00 Temperature Temperature Source Pulse Rate 59 L 62 Pulse Rate [Apical] Pulse Rate from SpO2 Sensor 59 L 59 L Pulse Rhythm Respiratory Rate 15 17 Respiratory Effort / Characteristics Respiratory Depth Blood Pressure 158/75 H Blood Pressure [Left Arm] Blood Pressure Mean 120 Blood Pressure Mean [Left Arm] Pulse Oximetry 98 98 Oxygen Delivery Method Sepsis Recent Fever Within 48 Hours Sepsis New/Unexplained Change in Mental Status Sepsis Action Taken by Nursing 08/08/23 21:00 08/08/23 21:10 08/08/23 21:20 Temperature Temperature Source Pulse Rate 62 60 63 Pulse Rate [Apical] Pulse Rate from SpO2 Sensor 58 L 60 62 Pulse Rhythm Respiratory Rate 12 14 18 Respiratory Effort / Characteristics Respiratory Depth Blood Pressure Blood Pressure [Left Arm] Blood Pressure Mean Blood Pressure Mean [Left Arm] Pulse Oximetry 98 98 100 Oxygen Delivery Method Sepsis Recent Fever Within 48 Hours Sepsis New/Unexplained Change in Mental Status Sepsis Action Taken by Nursing 08/08/23 21:38 08/08/23 22:00 08/08/23 22:00 Temperature Temperature Source Pulse Rate 62 60 Pulse Rate [Apical] Pulse Rate from SpO2 Sensor 58 L Pulse Rhythm Respiratory Rate 16 26 H Respiratory Effort / Characteristics Respiratory Depth Blood Pressure 149/62 H Blood Pressure [Left Arm] Blood Pressure Mean 106 Blood Pressure Mean [Left Arm] Pulse Oximetry 100 Oxygen Delivery Method Sepsis Recent Fever Within 48 Hours Sepsis New/Unexplained Change in Mental Status Sepsis Action Taken by Nursing 08/08/23 22:10 08/08/23 22:20 08/08/23 22:30 Temperature Temperature Source Pulse Rate 60 61 Pulse Rate [Apical] Pulse Rate from SpO2 Sensor 60 62 Pulse Rhythm Respiratory Rate 16 27 H Respiratory Effort / Characteristics Respiratory Depth Blood Pressure 168/90 H Blood Pressure [Left Arm] Blood Pressure Mean 112 Blood Pressure Mean [Left Arm] Pulse Oximetry 98 100 Oxygen Delivery Method Sepsis Recent Fever Within 48 Hours Sepsis New/Unexplained Change in Mental Status Sepsis Action Taken by Nursing 08/08/23 22:30 08/08/23 22:40 Temperature Temperature Source Pulse Rate 56 L 56 L Pulse Rate [Apical] Pulse Rate from SpO2 Sensor 56 L 55 L Pulse Rhythm Respiratory Rate 18 13 Respiratory Effort / Characteristics Respiratory Depth Blood Pressure Blood Pressure [Left Arm] Blood Pressure Mean Blood Pressure Mean [Left Arm] Pulse Oximetry 100 86 L Oxygen Delivery Method Sepsis Recent Fever Within 48 Hours Sepsis New/Unexplained Change in Mental Status Sepsis Action Taken by Prison Medications Current Medication List: was personally reviewed by me Laboratory Data Attestation: I reviewed the patient's lab results. 08/08/23 18:14 08/08/23 18:14 Lab Results 08/08/23 08/08/23 08/08/23 Range/Units 18:14 18:14 18:14 WBC 2.69 L (4.8-10.8) K/ul RBC 2.35 L (4.70-6.10) M/uL Hgb 8.1 L (14.0-18.0) g/dl Hct 23.8 L (42.0-52.0) % MCV 101.3 H (80.0-100.0) fL MCH 34.5 H (25.0-34.0) pg MCHC 34.0 (32.0-36.0) g/dL RDW Std Deviation 61.9 H (36.4-46.3) fL RDW Coeff of Violetta 17.2 H (11.5-14.5) % Plt Count 72 L (130-400) K/uL MPV 12.8 H (9.4-12.4) fL PT 12.3 H (9.0-12.0) Seconds INR 1.1 (0.9-1.1) APTT 29.3 (21.0-31.0) Seconds PTT Ratio 1.0 Sodium (136-145) mmol/L Potassium (3.5-5.1) mmol/L Chloride (98-107) mmol/L Carbon Dioxide (21-32) mmol/L Anion Gap (3-11) BUN (6-23) mg/dl Creatinine (0.6-1.4) mg/dl Est Cr Clr Drug Dosing Est GFR ( Amer) ml/min Est GFR (Non-Af Amer) ml/min BUN/Creatinine Ratio (10-20) Glucose (70-99(Fasting)) mg/dl Calcium (8.6-10.3) mg/dl Total Bilirubin (0.2-1.0) mg/dl AST (13-39) U/L ALT (7-52) U/L Alkaline Phosphatase (34-104) U/L Troponin I High Sens (0-20) pg/ml Total Protein (6.0-8.3) gm/dl Albumin (3.4-5.0) gm/dl Globulin (2.5-4.0) gm/dl Albumin/Globulin Ratio (0.9-2) Blood Type O Positive Antibody Screen NEGATIVE 08/08/23 08/08/23 Range/Units 18:14 19:46 WBC (4.8-10.8) K/ul RBC (4.70-6.10) M/uL Hgb (14.0-18.0) g/dl Hct (42.0-52.0) % MCV (80.0-100.0) fL MCH (25.0-34.0) pg MCHC (32.0-36.0) g/dL RDW Std Deviation (36.4-46.3) fL RDW Coeff of Violetta (11.5-14.5) % Plt Count (130-400) K/uL MPV (9.4-12.4) fL PT (9.0-12.0) Seconds INR (0.9-1.1) APTT (21.0-31.0) Seconds PTT Ratio Sodium 141 (136-145) mmol/L Potassium 4.4 (3.5-5.1) mmol/L Chloride 115 H (98-107) mmol/L Carbon Dioxide 23 (21-32) mmol/L Anion Gap 3 (3-11) BUN 26 H (6-23) mg/dl Creatinine 1.04 (0.6-1.4) mg/dl Est Cr Clr Drug Dosing Not Reportable Est GFR ( Amer) 82.2 ml/min Est GFR (Non-Af Amer) 70.9 ml/min BUN/Creatinine Ratio 25.0 H (10-20) Glucose 115 H (70-99(Fasting)) mg/dl Calcium 8.1 L (8.6-10.3) mg/dl Total Bilirubin 2.0 H (0.2-1.0) mg/dl AST 45 H (13-39) U/L ALT 22 (7-52) U/L Alkaline Phosphatase 203 H (34-104) U/L Troponin I High Sens 7.7 7.5 (0-20) pg/ml Total Protein 6.2 (6.0-8.3) gm/dl Albumin 2.9 L (3.4-5.0) gm/dl Globulin 3.3 (2.5-4.0) gm/dl Albumin/Globulin Ratio 0.9 (0.9-2) Blood Type Antibody Screen Administered Medications Pantoprazole Sodium 40 mg/ (Dextrose) 100 mls @ 20 mls/hr IV Q5H JODI Stop: 09/07/23 21:14 Last Admin: 08/08/23 22:20 Dose: 8 mg/hr, 20 mls/hr Documented By: ACC Octreotide Acetate 500 mcg/ (Dextrose) 100.5 mls @ 10.05 mls/hr IV .Q10H JODI Stop: 09/07/23 20:59 Last Admin: 08/08/23 22:20 Dose: 50 mcg/hr, 10.1 mls/hr Documented By: ACC Polyethylene Glycol (Polyethylene (Miralax) 17 Gm Pack) 119 gm PO TODAY@0600,2200 JODI Stop: 08/09/23 06:01 Last Admin: 08/08/23 22:14 Dose: 119 gm Documented By: ACC Discontinued Medications Pantoprazole Sodium 80 mg/ (Dextrose) 120 mls @ 400 mls/hr IV NOW ONE Stop: 08/08/23 21:05 Last Infusion: 08/08/23 22:38 Dose: 0 mls/hr Documented By: Admin: 08/08/23 22:04 Dose: 400 mls/hr Documented By: ACC Ceftriaxone Sodium 2,000 mg/ (Dextrose) 70 mls @ 140 mls/hr IV NOW STA Stop: 08/08/23 21:29 Last Infusion: 08/08/23 22:39 Dose: 0 mls/hr Documented By: Admin: 08/08/23 21:36 Dose: 140 mls/hr Documented By: ACC Ioversol (Optiray 320 100ml) 88 ml IV ONCE ONE Stop: 08/08/23 21:45 Last Admin: 08/08/23 21:44 Dose: 88 ml Documented By: FATIMAH Imaging Data Attestation: I personally reviewed and interpreted this imaging study as follows: My Impression: 1 view chest x-ray was obtained in the emergency department. My interpretation is no free air or definite infiltrate, final report pending. Radiologist's Impression: Abdomen/Pelvis CT 08/08/23 20:42 Exam(s): CT ABDOMEN + PELVIS With Contrast IV Amt: 88 ml optiray 320 EXAM: CT Abdomen and Pelvis With Intravenous Contrast CLINICAL HISTORY: Reason for exam: gib. TECHNIQUE: Axial computed tomography images of the abdomen and pelvis with intravenous contrast. CTDI is 22.69 mGy and DLP is 1175.25 mGy-cm. Automated exposure control was utilized for the study. A dose lowering technique was utilized adhering to the principles of ALARA. CONTRAST: Patient received 88 ml optiray 320 of IV contrast COMPARISON: No relevant prior studies available. FINDINGS: Lung bases: Unremarkable. No mass. No consolidation. ABDOMEN: Liver: TIPS stent. Hepatic cirrhosis. Splenomegaly. Abdominal and pelvic ascites. Gallbladder and bile ducts: Unremarkable. No calcified stones. No ductal dilation. Pancreas: Unremarkable. No mass. No ductal dilation. Spleen: See above. Adrenals: Unremarkable. No mass. Kidneys and ureters: Unremarkable. No hydronephrosis or delayed nephrogram. Stomach and bowel: Diverticulosis, without acute diverticulitis. No small bowel obstruction. No free intraperitoneal air. PELVIS: Appendix: Normal appendix. Bladder: Unremarkable. No mass. Reproductive: Unremarkable as visualized. ABDOMEN and PELVIS: Intraperitoneal space: See above. Bones/joints: Degenerative changes of the spine. No acute fracture. No dislocation. Soft tissues: Unremarkable. Vasculature: Atherosclerotic changes of the aorta. No abdominal aortic aneurysm. Lymph nodes: Unremarkable. No enlarged lymph nodes. IMPRESSION: 1. Normal appendix. 2. TIPS stent. Hepatic cirrhosis. Splenomegaly. Abdominal and pelvic ascites. 3. Diverticulosis, without acute diverticulitis. No small bowel obstruction. No free intraperitoneal air. Electronically signed by: Prabhakar Medel MD 08/08/23 22:38 PM Discharge Plan Visit Data Chief Complaint: Rectal Bleed Stated Complaint: RECTAL BLEEDING, VOMIT BLOOD ED Provider: Salvador Aly Discharge Problem: Acute upper gastrointestinal bleeding, Acute lower GI bleeding, Anemia, Liver disease, Thrombocytopenia Patient Disposition: Being Evaluated by Hospitalist Discharge Instructions Interventions: ED Discharge Assessment Last Done: 08/08/23 22:58 Forms Stand Alone Forms: My [facility] Prescriptions Prescriptions: No Action citalopram [Celexa] 10 mg tablet 10 mg PO QAM allopurinol 100 mg Tablet 200 mg PO QAM furosemide [Lasix] 20 mg Tablet 40 mg PO QAM triamcinolone acetonide 0.1 % cream 1 applic TOPICAL BID PRN (Reason: PSORIATIC LESIONS WHEN NEEDED) acetaminophen [Tylenol] 325 mg Tablet 650 mg PO Q8H PRN (Reason: Pain) pantoprazole 40 mg tablet,delayed release (DR/EC) 40 mg PO BID 90 Days Qty: 180 0RF zinc acetate 50 mg (zinc) Capsule 50 mg PO QAM Rx Instructions: unable to verify with pharmacist ferrous sulfate [iron] 325 mg (65 mg iron) Tablet 325 mg PO QAM acetylcysteine 600 mg Capsule 600 mg PO QAM Xifaxan 550 mg tablet 550 mg PO BID Men's 50 Plus Multivitamin 400-20-370 mcg Tablet 1 tab PO DAILY Probiotic 5 billion cell Capsule, Sprinkle 1 cap PO QAM Rx Instructions: unable to verify with pharmacist lactulose [Kristalose] 10 gram packet 10 g PO BID Rx Instructions: 90 ds back in january finasteride 5 mg Tablet 5 mg PO QAM insulin glargine [Lantus U-100 Insulin] 100 unit/mL solution 22 unit subcut HS oxycodone 5 mg tablet 5 mg PO Q6H PRN (Reason: pain) Qty: 12 0RF baclofen 5 mg Tablet 5 mg PO BID Referrals Referrals: Francisco Cisse MD [Primary Care Provider] -
[2023-08-08] MEDS ORDERED: POLYETHYLENE (MIRALAX) 17 GM PACK PO PRN (20:21)
[2023-08-08] MEDS ORDERED: SODIUM CHLORIDE 0.9% 250 ML IV PRN (20:31)
--- NOTE | 2023-08-08 20:47 | History & Physical Report ---
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 Acute GIB, suspecting upper in setting of esophageal varies with hx of TIPS NAFLD Cirrhosis Hepatocellular ca s/p IR embolization GAVE Anemia of chronic disease admit to PCU pt was consented, typed and crossed for 2 units, currently on hold Currently hemoglobin stable at 8.1, will transfuse her hemoglobin less than 7 or hemodynamic instability Repeat hemoglobin @ 00:00 Dr. Rivera discussed with Dr. Frances who recommended Miralax bowel prep now and in a.m. NPO after midnight for likely UGI/Cscope in am. IVF after midnight IV PPI bolus/gtt IV ocretotide bolus/gtt 1g Rocephin q24h LFTs stable with total bili 2.0, AST 45, ALT 22 and alk phos 203 Last EGD May 22, 2023: 2 columns of Grade 1 EV, mild portal gastropathy, GAVE APC'ed T2DM, insulin dependent obtain a1c in a.m. last A1c 5.04 May 2023 lantus/novolog per protocol will only give 10 units Lantus at HS tonight given NPO status Chronic Pancytopenia plt ct stable in setting of liver disease T12 compression fx following [facility] spine conservative management for now limit narc use as it worsens encephalopathy Hepatic encephalopathy Chronic, stable, currently not encephalopathic No asterixis Continue Xifaxan and lactulose to obtain 3-5 bowel movements daily Prostate cancer Status post radiation 2020 [place] Ppx: SCDs for now given GI bleeding Code status: FULL PCP: Tanna Dispo: Admission PCU Patient seen in collaboration with Dr. Rivera. Please see addendum. I spent a total of 75 minutes coordinating, documenting, and providing care for this patient excluding time spent in the performance of separately billed services. 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 Son is at bedside who also helps elicit history. Patient developed bright red blood per rectum this morning around 6 AM. As the day progressed he then had melena. Over the course of the day he also started spitting up bright red blood clots secondary to prior retching due to nausea. He currently complains of generalized abdominal pain mostly lower. He denies any recent illness, fever, chills, sweats, lightheadedness, dizziness, chest pain, shortness of breath, dysuria, increased urgency or frequency with urination. He lives at home with his and typically ambulates with a walker. Of significance he did recently sustain a T12 compression fracture. He was seen by Dr. Lockhart and also received a second opinion done at [facility] [address] last week who currently recommends conservative management giving high risk surgical candidate. He does still continue to have back pain and uses oxycodone intermittently. He is having anywhere from 3-5 bowel movements daily secondary to lactulose. He has only been taking lactulose once a day as baclofen has also been aiding and his bowel movements as well. In ED patient remained hemodynamically stable. His hem oglobin was stable at 8.1. ER provider spoke directly with gastroenterology who is recommending admission for upper and lower endoscopy tomorrow with MiraLAX bowel prep. Allergies Allergy/AdvReac Type Severity Reaction Status Date / Time No Known Allergies Allergy Mild Verified 07/24/23 15:13 Home Medications Medication Instructions Recorded Confirmed Type citalopram 10 mg tablet (Celexa) 10 mg PO QAM 03/24/20 08/08/23 History allopurinol 100 mg tablet 200 mg PO QAM 05/16/20 08/08/23 History finasteride 5 mg tablet 5 mg PO QAM 11/03/21 08/08/23 History furosemide 20 mg tablet (Lasix) 40 mg PO QAM 11/02/22 08/08/23 History insulin glargine 100 unit/mL 22 unit subcut HS 11/05/22 08/08/23 History subcutaneous solution (Lantus U-100 Insulin) acetaminophen 325 mg tablet 650 mg PO Q8H PRN Pain 02/24/23 08/08/23 History (Tylenol) triamcinolone acetonide 0.1 % 1 applic topical BID PRN PSORIATIC 02/24/23 08/08/23 History topical cream LESIONS WHEN NEEDED pantoprazole 40 mg tablet,delayed 40 mg PO BID 90 days #180 tabs 02/28/23 08/08/23 Rx release Lactobacil.acidophilus-Bifido.animalis 1 cap PO QAM 05/17/23 08/08/23 History 5 billion cell sprinkle capsule (Probiotic) acetylcysteine 600 mg capsule 600 mg PO QAM 05/17/23 08/08/23 History ferrous sulfate 325 mg (65 mg 325 mg PO QAM 05/17/23 08/08/23 History iron) tablet (iron) pgmsrjheejla-ahk-dqgth acid-vit 1 tab PO DAILY 05/17/23 08/08/23 History K-lycop 400 mcg-20 mcg-370 mcg tablet (Men's 50 Plus Multivitamin) rifaximin 550 mg tablet (Xifaxan) 550 mg PO BID 05/17/23 08/08/23 History zinc acetate 50 mg (zinc) capsule 50 mg PO QAM 05/17/23 08/08/23 History oxycodone 5 mg tablet 5 mg PO Q6H PRN pain #12 tabs 07/10/23 08/08/23 Rx baclofen 5 mg tablet 5 mg PO BID 07/24/23 08/08/23 History lactulose 10 gram oral packet 10 g PO BID 08/08/23 08/08/23 History (Kristalose) Past Med/Surg History Medical History Anemia of chronic disease under surveillance Anxiety and depression CKD (chronic kidney disease) stage 3, GFR 30-59 ml/min Esophageal varices EGD 05/22/23 ([facility]): Grade 1 varices in distal esophagus without high risk stigmata GAVE (gastric antral vascular ectasia) GERD (gastroesophageal reflux disease) Gout No current issues Hepatocellular carcinoma History of blood transfusion 11/2022 History of panic attacks History of recent hospitalization 06/2023 [facility] hepatic encephalopathy Hypertension Hx 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 Liver spots Under surveillance, stable per patient Prostate cancer Hx radiation Psoriasis Spinal fracture of T12 vertebra Upper GI bleed Hx Surgical History History of abdominal paracentesis Multiple, most recent 01/2023 History of colonoscopy with polypectomy History of esophagogastroduodenoscopy (EGD) Most recent 05/2023 [facility] History of left cataract surgery History of prostate biopsy malignant History of right cataract surgery History of tonsillectomy and adenoidectomy S/P TIPS (transjugular intrahepatic portosystemic shunt) Family History Father , "3/4 liver gone due to drinking" Colorectal cancer, Onset Age: 63 Mother Lung cancer Daughter Cancer cervical and thyroid cancers Ovarian cancer Other No family history of adverse response to anesthesia 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 Smoking Status: Never smoker Second Hand Exposure: No; Do You Dip or Chew Tobacco: No; Hx Alcohol Use: No Hx Substance Use: No Preferred Language: Bangladeshi Communication Ability: Effective Visual Impairment: No Limitations Hearing Ability: Normal [employer] Required: No Beliefs That Will Affect Care: None marital status: Current Living Situation: Spouse Current Living Situation Comment: Home with , Son and Daughter assist with ADLs 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 How many Children do You have: 6 How many Children do You have Comment: one , eldest daughter in her sleep from seizure disorder Other Information That Helps Us Care for You: No Feels Safe at Home: Yes Safety Concerns: Feels Safe At This Time Childhood Exposure to Second-Hand Smoke: Yes Diet Comment: "I watch my sugar, average fasting is 140 mg/dl" caffeine: Yes (cola, sugar free, decaf) during the past year weight has: remained stable Dental Care, Regularly: No Physical Activity Frequency: Does not Exercise Seatbelt Use: always Sunscreen Use: Yes Assistive Devices: Brace/Splint/Immobilizer and Walker Assistive Devices Comment: Back brace Review of Systems Review of Systems: All systems reviewed & are unremarkable except as noted in HPI & below Physical Exam Physical Exam: please refer to Dr. Rivera addendum for physical exam findings Results & Data Results & Data Vital Signs (Past 12 Hours) Vital Signs Temp Pulse Pulse Resp BP BP Pulse Ox 08/08/23 18:58 63 16 98 08/08/23 18:58 63 19 148/77 H 97 08/08/23 18:39 58 L 08/08/23 18:02 36.5 C 58 L 20 137/89 97 O2 Del Method 08/08/23 18:58 08/08/23 18:58 Room Air 08/08/23 18:39 08/08/23 18:02 Room Air ECG Rate (beats per minute): 59 Rhythm: sinus bradycardia Findings: + PVC Additional Comments: qtc 473ms COVID-19 Results Results COVID-19 Adm Lab Results: RBC 2.40 M/uL (4.70-6.10) L 08/09/23 WBC 2.19 K/ul (4.8-10.8) L 08/09/23 Hgb 8.1 g/dl (14.0-18.0) L 08/09/23 Hct 24.6 % (42.0-52.0) L 08/09/23 Plt Count 66 K/uL (130-400) L 08/09/23 Neutrophils (%) (Auto) 55.1 % 08/09/23 Lymphocytes (%) (Auto) 25.6 % 08/09/23 Monocytes # (Auto) 0.16 K/uL (0.11-0.59) 08/09/23 Eosinophils # (Auto) 0.24 K/uL (0.00-0.50) 08/09/23 Immature Granulocyte % (Auto) 0.5 % 08/09/23 Neutrophils # (Auto) 1.21 K/uL (1.40-6.50) L 08/09/23 Lymphocytes # (Auto) 0.56 K/uL (1.20-3.40) L 08/09/23 Monocytes # (Auto) 0.16 K/uL (0.11-0.59) 08/09/23 Eosinophils # (Auto) 0.24 K/uL (0.00-0.50) 08/09/23 Basophils # (Auto) 0.01 K/uL (0.00-0.20) 08/09/23 Immature Granulocyte # (Auto) 0.01 K/uL (0.01-0.20) 3 Na 141 mmol/L (136-145) 08/08/23 K 4.4 mmol/L (3.5-5.1) 08/08/23 Cl 115 mmol/L (98-107) H 08/08/23 CO2 23 mmol/L (21-32) 08/08/23 Anion Gap 3 (3-11) 08/08/23 BUN 26 mg/dl (6-23) H 08/08/23 Creatinine 1.04 mg/dl (0.6-1.4) 08/08/23 BUN/Creatinine Ratio 25.0 (10-20) H 08/08/23 Glucose Level 115 mg/dl (70-99(Fasting)) H 08/08/23 Ca 8.1 mg/dl (8.6-10.3) L 08/08/23 Total Bilirubin 2.0 mg/dl (0.2-1.0) H 08/08/23 AST/SGOT 45 U/L (13-39) H 08/08/23 ALT/SGPT 22 U/L (7-52) 08/08/23 Alkaline Phosphatase 203 U/L (34-104) H 08/08/23 Total Protein 6.2 gm/dl (6.0-8.3) 08/08/23 Albumin 2.9 gm/dl (3.4-5.0) L 08/08/23 Globulin 3.3 gm/dl (2.5-4.0) 08/08/23 Albumin/Globulin Ratio 0.9 (0.9-2) 08/08/23 PTT 29.3 Seconds (21.0-31.0) 08/08/23 INR 1.1 (0.9-1.1) 08/08/23 Chest X-Ray 08/08/23 Code Status & VTE Plan Code Status FULL CODE VTE Prophylaxis Plan VTE Prophylaxis will be ordered: Yes Supervising Physician Co-Signing Physician Notes Pt seen and examined by myself, Yamile Rivera MD on the day of service. Care was coordinated with Maura Paniagua PA-C. Pt is a 73yoM with Hx of known FOFANA cirrhosis presenting with suspected upper and lower GI bleed. States he has been coughing up clots with rectal bleeding as well that all started today but surprisingly his H/H has been stable around his baseline at 8.1. Hx of TIPS, and per son present, recent banding. Known to the GI service. On exam, resting comfortably, bloody paper towels on his person. RRR, Abdomen distended but nontender diffusely. Dr. Frances (GI) advised prepping with miralax for scopes tomorrow with Dr. Price, NPO after. Will start on ppi drip with octreotide, Rocephin, repeat H/H at midnight. He has been consented for blood transfusions with 2U ordered and put on hold. CT abd/pelvis ordered-follow. Otherwise as above. (1) GI (gastrointestinal bleed) GI bleed type/associated pathology: anorectal hemorrhage Qualified Code(s): K62.5 - Hemorrhage of anus and rectum (2) Anemia Anemia type: unspecified type Qualified Code(s): D64.9 - Anemia, unspecified (3) Cirrhosis Ascites presence: with ascites Hepatic cirrhosis type: unspecified hepatic cirrhosis Qualified Code(s): K74.60 - Unspecified cirrhosis of liver; R18.8 - Other ascites
[2023-08-08] MEDS ORDERED: PANTOprazole 80 MG in DEXTROSE 5% 100 ML IV ONE (20:48)
[2023-08-08] MEDS ORDERED: STAT IV STA (20:48)
[2023-08-08] MEDS ORDERED: OCTREOTIDE ACETATE 50 MCG in SYRINGE 9.5 ML IV STA (20:48)
[2023-08-08] MEDS ORDERED: PANTOPRAZOLE BOLUS/DRIP IV STA (20:48)
[2023-08-08] MEDS ORDERED: cefTRIAXone SODIUM 2,000 MG in DEXTROSE 5% 50 ML IV STA (21:00)
[2023-08-08] MEDS ORDERED: OPTIRAY 320 100ml IV ONE (21:44)
[2023-08-08] MEDS: POLYETHYLENE (MIRALAX) 17 GM PACK PO SCH (22:14)
[2023-08-08] MEDS: PANTOprazole 40 MG in DEXTROSE 5% 100 ML IV SCH (22:20)
[2023-08-08] MEDS: OCTREOTIDE ACETATE 500 MCG in DEXTROSE 5% 100 ML IV SCH (22:20)
--- NOTE | 2023-08-08 22:39 | CT Scan Report ---
Exam(s): CT ABDOMEN + PELVIS With Contrast IV Amt: 88 ml optiray 320 EXAM: CT Abdomen and Pelvis With Intravenous Contrast CLINICAL HISTORY: Reason for exam: gib. TECHNIQUE: Axial computed tomography images of the abdomen and pelvis with intravenous contrast. CTDI is 22.69 mGy and DLP is 1175.25 mGy-cm. Automated exposure control was utilized for the study. A dose lowering technique was utilized adhering to the principles of ALARA. CONTRAST: Patient received 88 ml optiray 320 of IV contrast COMPARISON: No relevant prior studies available. FINDINGS: Lung bases: Unremarkable. No mass. No consolidation. ABDOMEN: Liver: TIPS stent. Hepatic cirrhosis. Splenomegaly. Abdominal and pelvic ascites. Gallbladder and bile ducts: Unremarkable. No calcified stones. No ductal dilation. Pancreas: Unremarkable. No mass. No ductal dilation. Spleen: See above. Adrenals: Unremarkable. No mass. Kidneys and ureters: Unremarkable. No hydronephrosis or delayed nephrogram. Stomach and bowel: Diverticulosis, without acute diverticulitis. No small bowel obstruction. No free intraperitoneal air. PELVIS: Appendix: Normal appendix. Bladder: Unremarkable. No mass. Reproductive: Unremarkable as visualized. ABDOMEN and PELVIS: Intraperitoneal space: See above. Bones/joints: Degenerative changes of the spine. No acute fracture. No dislocation. Soft tissues: Unremarkable. Vasculature: Atherosclerotic changes of the aorta. No abdominal aortic aneurysm. Lymph nodes: Unremarkable. No enlarged lymph nodes. IMPRESSION: 1. Normal appendix. 2. TIPS stent. Hepatic cirrhosis. Splenomegaly. Abdominal and pelvic ascites. 3. Diverticulosis, without acute diverticulitis. No small bowel obstruction. No free intraperitoneal air. Electronically signed by: Prabhakar Medel MD 08/08/23 22:38 PM
[2023-08-08] MEDS ORDERED: LANTUS PER UNIT CHARGE SQ ONE (23:16)
[2023-08-08] MEDS ORDERED: oxyCODONE HCL IR 5 MG TAB (IMMEDIATE RELEASE) PO PRN (23:16)
[2023-08-08] MEDS ORDERED: GLUCAGON FOR INJ 1 MG VIAL SQ PRN (23:16)
[2023-08-08] MEDS ORDERED: DEXTROSE 50% 50 ML SYRINGE IV PRN (23:16)
[2023-08-08] MEDS ORDERED: GLUCOSE 40% GEL 15 GM TUBE PO PRN (23:16)
[2023-08-08] MEDS ORDERED: GLUCOSE 10 TAB/TUBE PO PRN (23:16)
[2023-08-08] MEDS ORDERED: CARBOHYDRATES FOR HYPOGLYCEMIA PO PRN (23:16)
[2023-08-08] MEDS: INSULIN ASPART PER UNIT CHARGE SC SCH (23:37)
[2023-08-09] MEDS ORDERED: SODIUM CHLORIDE 0.9% 1,000 ML IV SCH
[2023-08-09] MEDS: ACETAMINOPHEN 325 MG TAB PO PRN ×3 (00:16→15:21)
[2023-08-09] MEDS: LACTULOSE SYRUP 10 GM/15 ML BTL 960 ML PO SCH ×4 (00:17→21:14)
[2023-08-09] MEDS: rifAXIMin 550 MG TABLET PO SCH ×3 (00:18→21:12)
[2023-08-09 01:28] LABS: Hematocrit (blood only) 25.5 % (42.0-52.0); Hemoglobin 8.3 g/dl (14.0-18.0)
[2023-08-09] MEDS: PANTOprazole 40 MG in DEXTROSE 5% 100 ML IV SCH ×4 (03:07→21:12)
[2023-08-09] MEDS: POLYETHYLENE (MIRALAX) 17 GM PACK PO SCH (06:07)
[2023-08-09] MEDS: OCTREOTIDE ACETATE 500 MCG in DEXTROSE 5% 100 ML IV SCH ×2 (06:08→17:49)
[2023-08-09 06:47] LABS: Basophils # (auto) 0.01 K/uL (0.00-0.20); Basophils % (auto) 0.5 %; Eosinophils # (auto) 0.24 K/uL (0.00-0.50); Hematocrit (blood only) 24.6 % (42.0-52.0); Hemoglobin 8.1 g/dl (14.0-18.0); Immature Granulocytes # (auto) 0.01 K/uL (0.01-0.20); Immature Granulocytes % (auto) 0.5 %; Lymphocytes # (auto) 0.56 K/uL (1.20-3.40); Lymphocytes % (auto) 25.6 %; Mean Corpuscular Hemoglobin 33.8 pg (25.0-34.0); Mean Corpuscular Hgb Conc 32.9 g/dL (32.0-36.0); Mean Corpuscular Volume 102.5 fL (80.0-100.0); Mean Platelet Volume 11.7 fL (9.4-12.4); Monocytes # (auto) 0.16 K/uL (0.11-0.59); Monocytes % (auto) 7.3 %; Neutrophils # (auto) 1.21 K/uL (1.40-6.50); Neutrophils % (auto) 55.1 %; Platelet Count 66 K/uL (130-400); RDW Coefficient of Variation 17.2 % (11.5-14.5); RDW Standard Deviation 64.4 fL (36.4-46.3); White Blood Count 2.19 K/ul (4.8-10.8)
[2023-08-09 07:09] LABS: Albumin Globulin Ratio 0.8 (0.9-2); Albumin Level 2.7 gm/dl (3.4-5.0); BUN Creatinine Ratio 24.3 (10-20); Calcium 7.9 mg/dl (8.6-10.3); Est GFR (African American) 83.1 ml/min; Est GFR (Non-African American) 71.7 ml/min; Globulin 3.4 gm/dl (2.5-4.0); Magnesium 1.6 mg/dl (1.7-2.4); Potassium 4.2 mmol/L (3.5-5.1); Total Protein 6.1 gm/dl (6.0-8.3)
[2023-08-09 07:18] LABS: INR 1.1 (0.9-1.1); Prothrombin Time 12.4 Seconds (9.0-12.0)
--- NOTE | 2023-08-09 07:19 | XRay Report ---
XR chest 1V portable CLINICAL HISTORY: GIB TECHNIQUE: Single frontal radiograph of the chest was obtained. Comparison: Comparison is made to chest radiograph 07/24/2023 FINDINGS: No lines and tubes are seen. The cardiomediastinal silhouette is normal. Faint right lower lung airsp tamela opacity is seen. No evidence of pleural effusion or pneumothorax. IMPRESSION: Faint right lower lung airspace opacity may represent atelectasis, pneumonia, and/or aspiration. ACT 112: Negative or not required by law. Electronically signed by: Arik Flowers M.D. 08/09/2023 7:18 AM
[2023-08-09] MEDS: INSULIN ASPART PER UNIT CHARGE SC SCH ×4 (08:14→21:13)
--- NOTE | 2023-08-09 08:39 | Gastrointestinal Consultation ---
Date of Consultation August 09, 2023 Assessment & Plan (1) GI (gastrointestinal bleed): (2) Anemia: (3) 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: Pt is a 73 yo male w NAFLD cirrhosis (MELD 12), hx of esophageal varices, ascites s/p TIPS, HCC s/p IR embolization, GAVE and rectal angioectasia s/p APC treatment, who presented w nausea, and spitting up blood w clots, BRBPR and dark colored stools. VS and blood ct stable overnight. - Keep NPO - Plan for EGD and colonoscopy today by Dr. Edis Price - Monitor blood ct and transfuse prn; goal hgb >7 - Continue PPI gtt, Octreotide gtt, Ceftriaxone IV - Lactulose and Xifaxan as dosed. Titrate Lactulose for goal BM at least 3-5 - No APAP >2g ; No NSAIDs - Continue to avoid ETOH, tobacco, illicit drugs - F/U w JEFF Archibald in GI clinic on 08/30/2023 Supervising Physician Co-Signing Physician Notes I saw and evaluated the patient. We are planning to do upper endoscopy and colonoscopy today given the question of coffee-ground emesis in addition to bright red blood per rectum. The patient does have a long history of liver disease and is presently under evaluation for liver [place] at [facility]. He notes that he did have a prior TIPS procedure number of years ago and notes that prior to this he was having problems with a spinal fracture. We discussed risks and benefits of upper endoscopy and colonoscopy to include bleeding infection perforation pain and need for follow-up studies. Recommendations upper endoscopy and colonoscopy scheduled for today Broad-spectrum antibiotic coverage while inpatient Continue octreotide and Protonix drip Avoid use of nonsteroidals placed History of Present Illness Reason for Consultation: GI bleed Requesting Physician: Dr. Franko Villanueva Attending Physician: Dr. Edis Price History of Present Illness Pt is a 73 yo male w NAFLD cirrhosis complicated by esophageal varices, ascites s/p TIPs, HCC s/p IR embolization in 2019, currently on [facility] Liver transplant list. He presented last night w c/o spitting up bright red blood since yesterday afternoon. Prior to that he was having nausea wo vomiting and was retching. He also started having BRBPR and dark colored stools later. He had associated periumbilical discomfort. Denies fever chill, CP, SOB, HAs, dizziness. He had a fall and had T12 fracture. Had been taking Tylenol up to 3g a day but denies NSAIDs. His last EGD was in 05/2023 w findings of esophageal varices, PHG, GAVE treated w APC. Last colonoscopy in 11/2022 w findings of rectal angioectasia consistent w radiation colopathy (hx of prostate ca). Labs reviewed. Blood ct stable overnight w Hgb of 8 (baseline 9-10). He has been started on PPI gtt, Octreotide gtt, Ceftriaxone IV. 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 CXR: Faint right lower lung airspace opacity may represent atelectasis, pneumonia, and/or aspiration. CT abd/pelvis: 1. Normal appendix. 2. TIPS stent. Hepatic cirrhosis. Splenomegaly. Abdominal and pelvic ascites. 3. Diverticulosis, without acute diverticulitis. No small bowel obstruction. No free intraperitoneal air. Allergies Allergy/AdvReac Type Severity Reaction Status Date / Time No Known Allergies Allergy Mild Verified 07/24/23 15:13 Home Medications Medication Instructions Recorded Confirmed Type citalopram 10 mg tablet (Celexa) 10 mg PO QAM 03/24/20 08/08/23 History allopurinol 100 mg tablet 200 mg PO QAM 05/16/20 08/08/23 History finasteride 5 mg tablet 5 mg PO QAM 11/03/21 08/08/23 History furosemide 20 mg tablet (Lasix) 40 mg PO QAM 11/02/22 08/08/23 History insulin glargine 100 unit/mL 22 unit subcut HS 11/05/22 08/08/23 History subcutaneous solution (Lantus U-100 Insulin) acetaminophen 325 mg tablet 650 mg PO Q8H PRN Pain 02/24/23 08/08/23 History (Tylenol) triamcinolone acetonide 0.1 % 1 applic topical BID PRN PSORIATIC 02/24/23 08/08/23 History topical cream LESIONS WHEN NEEDED pantoprazole 40 mg tablet,delayed 40 mg PO BID 90 days #180 tabs 02/28/23 08/08/23 Rx release Lactobacil.acidophilus-Bifido.animalis 1 cap PO QAM 05/17/23 08/08/23 History 5 billion cell sprinkle capsule (Probiotic) acetylcysteine 600 mg capsule 600 mg PO QAM 05/17/23 08/08/23 History ferrous sulfate 325 mg (65 mg 325 mg PO QAM 05/17/23 08/08/23 History iron) tablet (iron) uqnrlgbxyyia-fpk-juzgp acid-vit 1 tab PO DAILY 05/17/23 08/08/23 History K-lycop 400 mcg-20 mcg-370 mcg tablet (Men's 50 Plus Multivitamin) rifaximin 550 mg tablet (Xifaxan) 550 mg PO BID 05/17/23 08/08/23 History zinc acetate 50 mg (zinc) capsule 50 mg PO QAM 05/17/23 08/08/23 History oxycodone 5 mg tablet 5 mg PO Q6H PRN pain #12 tabs 07/10/23 08/08/23 Rx baclofen 5 mg tablet 5 mg PO BID 07/24/23 08/08/23 History lactulose 10 gram oral packet 10 g PO BID 08/08/23 08/08/23 History (Kristalose) Patient History Medical History Anemia of chronic disease under surveillance Anxiety and depression CKD (chronic kidney disease) stage 3, GFR 30-59 ml/min Encounter for pre-operative examination Esophageal varices EGD 05/22/23 ([facility]): Grade 1 varices in distal esophagus without high risk stigmata GAVE (gastric antral vascular ectasia) GERD (gastroesophageal reflux disease) Gout No current issues Hepatocellular carcinoma History of blood transfusion 11/2022 History of panic attacks History of recent hospitalization 06/2023 [facility] hepatic encephalopathy Hypertension Hx 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 Liver spots Under surveillance, stable per patient Prostate cancer Hx radiation Psoriasis Spinal fracture of T12 vertebra Upper GI bleed Hx Surgical History History of abdominal paracentesis Multiple, most recent 01/2023 History of colonoscopy with polypectomy History of esophagogastroduodenoscopy (EGD) Most recent 05/2023 [facility] History of left cataract surgery History of prostate biopsy malignant History of right cataract surgery History of tonsillectomy and adenoidectomy S/P TIPS (transjugular intrahepatic portosystemic shunt) Family History Father , "3/4 liver gone due to drinking" Colorectal cancer, Onset Age: 63 Mother Lung cancer Daughter Cancer cervical and thyroid cancers Ovarian cancer Other No family history of adverse response to anesthesia 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 Smoking Status: Never smoker Second Hand Exposure: No; Do You Dip or Chew Tobacco: No; Hx Alcohol Use: No Hx Substance Use: No Preferred Language: Sudanese Communication Ability: Effective Visual Impairment: No Limitations Hearing Ability: Normal Telephone Station Installer Required: No Beliefs That Will Affect Care: None marital status: Current Living Situation: Spouse Current Living Situation Comment: Home with , Son and Daughter assist with ADLs 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 How many Children do You have: 6 How many Children do You have Comment: one , eldest daughter in her sleep from seizure disorder Other Information That Helps Us Care for You: No Feels Safe at Home: Yes Safety Concerns: Feels Safe At This Time Childhood Exposure to Second-Hand Smoke: Yes Diet Comment: "I watch my sugar, average fasting is 140 mg/dl" caffeine: Yes (cola, sugar free, decaf) during the past year weight has: remained stable Dental Care, Regularly: No Physical Activity Frequency: Does not Exercise Seatbelt Use: always Sunscreen Use: Yes Assistive Devices: Brace/Splint/Immobilizer and Walker Assistive Devices Comment: Back brace Review of Systems Review of Systems: All systems reviewed & are unremarkable except as noted in HPI & below Physical Exam Constitutional: WD/WN, vitals as above well groomed, cooperative and comfortable Eyes: PERRL, conjunctivae normal, anicteric sclerae ENMT: external ear and nose normal, oropharynx normal Respiratory: normal respiratory effort, lungs clear to auscultation Cardiovascular: RRR, no murmur, no edema Gastrointestinal (Abdomen): normal bowel sounds, soft, nontender, no hepatosplenomegaly Skin: no rashes, warm and dry no jaundice Neurologic: Motor/Sensory: no asterixis Psychiatric: A+Ox3, euthymic affect Lymphatic: no lymphedema Results & Data Vital Signs (Past 12 Hours) Vital Signs Temp Pulse Pulse Resp BP BP BP 08/09/23 08:16 36.5 C 55 L 18 124/56 L 08/09/23 07:37 60 08/09/23 04:47 36.5 C 55 L 20 152/62 H 08/08/23 23:40 57 L 08/08/23 23:12 36.6 C 54 L 15 176/74 H 08/08/23 22:40 56 L 13 08/08/23 22:30 56 L 18 08/08/23 22:30 168/90 H 08/08/23 22:20 61 27 H 08/08/23 22:10 60 16 08/08/23 22:00 60 26 H 08/08/23 22:00 149/62 H 08/08/23 21:38 62 16 08/08/23 21:20 63 18 08/08/23 21:10 60 14 08/08/23 21:00 62 12 08/08/23 21:00 158/75 H 08/08/23 20:50 62 17 08/08/23 20:40 59 L 15 Pulse Ox O2 Del Method O2 Flow Rate 08/09/23 08:16 99 Room Air 08/09/23 07:37 08/09/23 04:47 99 Nasal Cannula 2.0 08/08/23 23:40 08/08/23 23:12 97 Room Air 08/08/23 22:40 86 L 08/08/23 22:30 100 08/08/23 22:30 08/08/23 22:20 100 08/08/23 22:10 98 08/08/23 22:00 100 08/08/23 22:00 08/08/23 21:38 08/08/23 21:20 100 08/08/23 21:10 98 08/08/23 21:00 98 08/08/23 21:00 08/08/23 20:50 98 08/08/23 20:40 98 (1) GI (gastrointestinal bleed) GI bleed type/associated pathology: anorectal hemorrhage Qualified Code(s): K62.5 - Hemorrhage of anus and rectum (2) Anemia Anemia type: unspecified type Qualified Code(s): D64.9 - Anemia, unspecified
--- NOTE | 2023-08-09 08:52 | Anesthesiology Consultation ---
Date of Service August 09, 2023 Assessment & Plan (1) Encounter for pre-operative examination: Chart Review Chart Review: Acceptable Risk for Surgery, Patient NOT seen in Pre Admission Testing and entry processor initiated Consults Requested none ASA ASA4 Proposed Anesthesia Anesthesia Type: MAC History Surgery Operation Date: 08/09/23 16:45 Proposed Procedures p Colonoscopy EGD Dr Albert Price, DO Height/Weight Height: 5 ft 10 in Weight: 81.4 kg Allergies Allergy/AdvReac Type Severity Reaction Status Date / Time No Known Allergies Allergy Mild Verified 07/24/23 15:13 Medications Home Medications Medication Instructions Recorded Confirmed Last Taken citalopram 10 mg tablet (Celexa) 10 mg PO QAM 03/24/20 08/08/23 06/13/23 allopurinol 100 mg tablet 200 mg PO QAM 05/16/20 08/08/23 06/13/23 finasteride 5 mg tablet 5 mg PO QAM 11/03/21 08/08/23 06/13/23 furosemide 20 mg tablet (Lasix) 40 mg PO QAM 11/02/22 08/08/23 06/13/23 insulin glargine 100 unit/mL 22 unit subcut HS 11/05/22 08/08/23 06/13/23 subcutaneous solution (Lantus U-100 Insulin) acetaminophen 325 mg tablet 650 mg PO Q8H PRN Pain 02/24/23 08/08/23 06/13/23 (Tylenol) triamcinolone acetonide 0.1 % 1 applic topical BID PRN PSORIATIC 02/24/23 08/08/23 06/13/23 topical cream LESIONS WHEN NEEDED pantoprazole 40 mg tablet,delayed 40 mg PO BID 90 days #180 tabs 02/28/23 08/08/23 06/13/23 release Lactobacil.acidophilus-Bifido.animalis 1 cap PO QAM 05/17/23 08/08/23 06/13/23 5 billion cell sprinkle capsule (Probiotic) acetylcysteine 600 mg capsule 600 mg PO QAM 05/17/23 08/08/23 06/13/23 ferrous sulfate 325 mg (65 mg 325 mg PO QAM 05/17/23 08/08/23 06/13/23 iron) tablet (iron) cucilidzxpsd-siy-buvlt acid-vit 1 tab PO DAILY 05/17/23 08/08/23 06/13/23 K-lycop 400 mcg-20 mcg-370 mcg tablet (Men's 50 Plus Multivitamin) rifaximin 550 mg tablet (Xifaxan) 550 mg PO BID 05/17/23 08/08/23 06/13/23 zinc acetate 50 mg (zinc) capsule 50 mg PO QAM 05/17/23 08/08/23 06/13/23 oxycodone 5 mg tablet 5 mg PO Q6H PRN pain #12 tabs 07/10/23 08/08/23 Unknown baclofen 5 mg tablet 5 mg PO BID 07/24/23 08/08/23 Unknown lactulose 10 gram oral packet 10 g PO BID 08/08/23 08/08/23 Unknown (Kristalose) Active Medications Generic Name Dose Route Start Last Admin Trade Name Freq PRN Reason Stop Dose Admin Acetaminophen 650 mg 08/08/23 20:21 08/09/23 05:14 Acetaminophen 325 Mg Tab PO 09/07/23 20:20 650 mg Q4H PRN Administration Pain or Fever Pantoprazole Sodium 40 mg/ 100 mls @ 20 mls/hr 08/08/23 21:15 08/09/23 08:08 Dextrose IV 09/07/23 21:14 8 mg/hr Q5H JODI 20 mls/hr Administration 8 MG/HR Octreotide Acetate 500 mcg/ 100.5 mls @ 10.05 mls/hr 08/08/23 21:00 08/09/23 06:08 Dextrose IV 09/07/23 20:59 50 mcg/hr .Q10H JODI 10.1 mls/hr Administration 50 MCG/HR Sodium Chloride 1,000 mls @ 80 mls/hr 08/09/23 00:00 08/09/23 00:18 Nss IV 08/09/23 12:29 80 mls/hr .[id number] JODI Administration Insulin Aspart 0 units 08/08/23 23:16 08/09/23 08:14 Insulin Aspart Per Unit Charge SC 09/07/23 23:15 1 units ACHS JODI Administration Lactulose 10 gm 08/08/23 23:16 08/09/23 00:17 Lactulose Syrup 10 Gm/15 Ml Btl 960 Ml PO 09/07/23 23:15 10 gm BID JODI Administration Rifaximin 550 mg 08/08/23 23:16 08/09/23 00:18 Rifaximin 550 Mg Tablet PO 09/07/23 23:15 550 mg BID JODI Administration Past Medical History Medical History Anemia of chronic disease under surveillance Anxiety and depression CKD (chronic kidney disease) stage 3, GFR 30-59 ml/min Encounter for pre-operative examination Esophageal varices EGD 05/22/23 ([facility]): Grade 1 varices in distal esophagus without high risk stigmata GAVE (gastric antral vascular ectasia) GERD (gastroesophageal reflux disease) Gout No current issues Hepatocellular carcinoma History of blood transfusion 11/2022 History of panic attacks History of recent hospitalization 06/2023 [facility] hepatic encephalopathy Hypertension Hx 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 Liver spots Under surveillance, stable per patient Prostate cancer Hx radiation Psoriasis Spinal fracture of T12 vertebra Upper GI bleed Hx Past Family History Family History Father , "3/4 liver gone due to drinking" Colorectal cancer, Onset Age: 63 Mother Lung cancer Daughter Cancer cervical and thyroid cancers Ovarian cancer Other No family history of adverse response to anesthesia Past Surgical History Surgical History History of abdominal paracentesis Multiple, most recent 01/2023 History of colonoscopy with polypectomy History of esophagogastroduodenoscopy (EGD) Most recent 05/2023 [facility] History of left cataract surgery History of prostate biopsy malignant History of right cataract surgery History of tonsillectomy and adenoidectomy S/P TIPS (transjugular intrahepatic portosystemic shunt) 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 Smoking Status: Never smoker Do You Dip or Chew Tobacco: No Hx Alcohol Use: No Hx Substance Use: No substance use type: does not use Physical Exam Vital Signs Last Vital Signs Temp 36.5 C 08/09/23 08:16 Pulse 55 L 08/09/23 08:16 Resp 18 08/09/23 08:16 BP 124/56 L 08/09/23 08:16 Pulse Ox 99 08/09/23 08:16 O2 Del Method Room Air 08/09/23 08:16 O2 Flow Rate 2.0 08/09/23 04:47 Testing Laboratory Results 08/09/23 06:02 08/09/23 06:02 PT 12.4 Seconds (9.0-12.0) H 08/09/23 06:02 INR 1.1 (0.9-1.1) 08/09/23 06:02 APTT 29.3 Seconds (21.0-31.0) 08/08/23 18:14 Blood Type O Positive 08/08/23 18:14 Antibody Screen NEGATIVE 08/08/23 18:14 08/09/23 08/08/23 06:37 23:22 POC Glucose 171 H 141 H Electrocardiogram Date: 08/08/23 18:19:16 [facility]-EDSTAT ROUTINE RETRIEVAL Sinus bradycardia with occasional Premature ventricular complexes Minimal voltage criteria for LVH, may be normal variant ( R in aVL ) Anterolateral infarct , age undetermined Abnormal ECG When compared with ECG of 24-JUL-2023 12:50, Premature ventricular complexes are now Present Anterolateral infarct is now Present Nonspecific T wave abnormality now evident in Inferior leads Nonspecific T wave abnormality, worse in Anterolateral leads 25mm/s10mm/[id number] 243CID: [id number] by: REFERRED SELF Unconfirmed Vent. rate 59 BPM TN interval 186 ms QRS duration 88 ms QT/QTc 478/473 ms. Chest X-Ray Date: 08/08/23 CLINICAL HISTORY: GIB TECHNIQUE: Single frontal radiograph of the chest was obtained. Comparison: Comparison is made to chest radiograph 07/24/2023 FINDINGS: No lines and tubes are seen. The cardiomediastinal silhouette is normal. Faint right lower lung airspace opacity is seen. No evidence of pleural effusion or pneumothorax. IMPRESSION: Faint right lower lung airspace opacity may represent atelectasis, pneumonia, and/or aspiration. Echocardiogram Date: 08/08/23 EF: 65-70 LV Function: normal RWMA: + none Other Findings: + LVH (moderate) Valvular Disease: + no significant valvular disease
[2023-08-09 09:16] LABS: Estimated Average Glucose 85 mg/dl; Hemoglobin A1C 4.6 % (4.5-5.6)
[2023-08-09] MEDS: CITALOPRAM 20 MG TAB PO SCH (10:22)
[2023-08-09] MEDS: allopurinoL 100 MG TAB PO SCH (10:22)
[2023-08-09] MEDS: FINASTERIDE 5 MG TAB PO SCH (10:24)
[2023-08-09] MEDS ORDERED: PROPOFOL IV EMULSION 10 MG/ML 20 ML VIAL IV ONE (13:40)
[2023-08-09] MEDS ORDERED: KETAMINE 50 MG/5 ML SYRINGE ONE (13:40)
[2023-08-09] MEDS ORDERED: LIDOCAINE 2% 2 ML VIAL/AMP(20MG/ML) INFIL ONE (13:40)
--- NOTE | 2023-08-09 14:16 | GI REPORT ---
Patient Name: Luis Hale Procedure Date: 08/09/2023 1:42 PM Date of : 1950 Admit Type: Inpatient Age: 73 Gender: Male Attending MD: Edis Price DO, Procedure: Upper GI endoscopy Providers: Edis Price DO Referring MD: Franko Villanueva Indications: Hematochezia Medicines: Monitored Anesthesia Care Complications: No immediate complications. Estimated blood loss: Minimal. Estimated Blood Loss: Estimated blood loss was minimal. Procedure: Pre-Anesthesia Assessment: - Prior to the procedure, a History and Physical was performed, and patient medications, allergies and sensitivities were reviewed. The patient's tolerance of previous anesthesia was reviewed. - The risks and benefits of the procedure and the sedation options and risks were discussed with the patient. All questions were answered and informed consent was obtained. - Patient identification and proposed procedure were verified prior to the procedure by the physician, the nurse and the medical records analyst. The procedure was verified in the pre-procedure area in the procedure room. - Pre-procedure physical examination revealed no contraindications to sedation. - ASA Grade Assessment: IV - A patient with severe systemic disease that is a constant threat to life. - After reviewing the risks and benefits, the patient was deemed in satisfactory condition to undergo the procedure. - The anesthesia plan was to use monitored anesthesia care (MAC). - The heart rate, respiratory rate, oxygen saturations, blood pressure, adequacy of pulmonary ventilation, and response to care were monitored throughout the procedure. - The physical status of the patient was re-assessed after the procedure. After obtaining informed consent, the endoscope was passed under direct vision. Throughout the procedure, the patient's blood pressure, pulse, and oxygen saturations were monitored continuously. The Endoscope was introduced through the mouth, and advanced to the third part of duodenum. The upper GI endoscopy was accomplished without difficulty. The patient tolerated the procedure well. Findings: The examined esophagus was normal. Moderate portal hypertensive gastropathy was found in the entire examined stomach. The examined duodenum was normal. Impression: - Normal esophagus. - Portal hypertensive gastropathy. - Normal examined duodenum. - No evidence of bleeding was seen from the upper digestive tract during today's examination. - No specimens collected. Recommendation: - Perform a colonoscopy today. - Repeat upper endoscopy in 1 year for surveillance. Edis Price D.O. Edis Price, DO 08/09/2023 2:16:00 PM This report has been signed electronically. Note Initiated On: 08/09/2023 1:42 PM Number of Addenda: 0 I attest to the content of the Intraoperative Record and orders documented therein, exceptions below {[id number]}
--- NOTE | 2023-08-09 14:19 | GI REPORT ---
Patient Name: Luis Hale Procedure Date: 08/09/2023 1:41 PM Date of : 1950 Admit Type: Inpatient Age: 73 Gender: Male Attending MD: Edis Price DO, Procedure: Colonoscopy Providers: Edis Price DO Referring MD: Franko Villanueva Indications: Hematochezia Medicines: Monitored Anesthesia Care Complications: No immediate complications. Estimated blood loss: Minimal. Estimated Blood Loss: Estimated blood loss was minimal. Procedure: Pre-Anesthesia Assessment: - Prior to the procedure, a History and Physical was performed, and patient medications, allergies and sensitivities were reviewed. The patient's tolerance of previous anesthesia was reviewed. - The risks and benefits of the procedure and the sedation options and risks were discussed with the patient. All questions were answered and informed consent was obtained. - Patient identification and proposed procedure were verified prior to the procedure by the physician, the nurse and the soc analyst. The procedure was verified in the procedure room. - Pre-procedure physical examination revealed no contraindications to sedation. - ASA Grade Assessment: IV - A patient with severe systemic disease that is a constant threat to life. - After reviewing the risks and benefits, the patient was deemed in satisfactory condition to undergo the procedure. - The anesthesia plan was to use monitored anesthesia care (MAC). - Immediately prior to administration of medications, the patient was re-assessed for adequacy to receive sedatives. - The heart rate, respiratory rate, oxygen saturations, blood pressure, adequacy of pulmonary ventilation, and response to care were monitored throughout the procedure. - The physical status of the patient was re-assessed after the procedure. After I obtained informed consent, the scope was passed under direct vision. Throughout the procedure, the patient's blood pressure, pulse, and oxygen saturations were monitored continuously. The Scope was introduced through the anus and advanced to the cecum, identified by appendiceal orifice and ileocecal valve. The colonoscopy was performed without difficulty. The patient tolerated the procedure well. The quality of the bowel preparation was fair. Findings: The perianal and digital rectal examinations were normal. Pertinent negatives include normal sphincter tone. A 5 mm polyp was found in the transverse colon. The polyp was sessile. The polyp was removed with a cold snare. Resection and retrieval were complete. The pathology specimen was placed into Bottle A. To prevent bleeding after the polypectomy, one hemostatic clip was successfully placed (MR conditional). Clip bladder trimmer: DossierView. There was no bleeding at the end of the procedure. A 5 mm polyp was found in the transverse colon. The polyp was sessile. The polyp was removed with a cold snare. Resection and retrieval were complete. To prevent bleeding after the polypectomy, two hemostatic clips were successfully placed (MR conditional). Clip bladder trimmer: DossierView. There was no bleeding at the end of the procedure. Multiple small and large-mouthed diverticula were found in the sigmoid colon and descending colon. There was no evidence of diverticular bleeding. Internal hemorrhoids were found during retroflexion. The hemorrhoids were moderate. The exam was otherwise without abnormality. Impression: - Preparation of the colon was fair. - One 5 mm polyp in the transverse colon, removed with a cold snare. Resected and retrieved. Clip (MR conditional) was placed. Clip bladder trimmer: DossierView. - One 5 mm polyp in the transverse colon, removed with a cold snare. Resected and retrieved. Clips (MR conditional) were placed. Clip bladder trimmer: DossierView. - Moderate diverticulosis in the sigmoid colon and in the descending colon. There was no evidence of diverticular bleeding. - Internal hemorrhoids. - The examination was otherwise normal. Recommendation: - Await pathology results. - Repeat colonoscopy in 1 year because the bowel preparation was suboptimal. Edis Price D.O. Edis Price, 08/09/2023 2:18:42 PM This report has been signed electronically. Note Initiated On: 08/09/2023 1:41 PM Number of Addenda: 0 I attest to the content of the Intraoperative Record and orders documented therein, exceptions below {[id number]}
--- NOTE | 2023-08-09 14:20 | Communication Note ---
Date of Service: August 09, 2023 Patient underwent both upper endoscopy and colonoscopy today. The upper endoscopy was notable for portal hypertensive gastritis without evidence of acti ve bleeding. The patient was also found to have diverticulosis of the left colon, 2 colon polyps which were removed, and large internal hemorrhoids. No obvious active bleeding was seen during today's examination. Based on the patient's presentation I wonder about an anal rectal etiology such as his internal hemorrhoids. Recommendations low Sodium diet Daily iron supplementation as an outpatient Repeat upper endoscopy and colonoscopy in 1 year for surveillance purposes Consider use of MiraLAX and milligrams daily Please call with any questions or concerns, GI to sign off.
--- NOTE | 2023-08-09 14:59 | Anesthesiology Progress Note ---
Date of Service August 09, 2023 Anesthesia Post Procedure Vital Signs Vital Signs: Temp Pulse Pulse Resp BP BP BP 08/09/23 14:51 54 L 16 135/59 L 08/09/23 14:36 63 16 146/62 H 08/09/23 14:21 68 16 114/49 L 08/09/23 12:37 36.4 C L 54 L 18 166/73 H 08/09/23 12:07 36.5 C 53 L 18 159/47 H 08/09/23 08:16 36.5 C 55 L 18 124/56 L 08/09/23 07:37 60 08/09/23 04:47 36.5 C 55 L 20 152/62 H 08/08/23 23:40 57 L 08/08/23 23:12 36.6 C 54 L 15 176/74 H 08/08/23 22:40 56 L 13 08/08/23 22:30 56 L 18 08/08/23 22:30 168/90 H 08/08/23 22:20 61 27 H 08/08/23 22:10 60 16 08/08/23 22:00 60 26 H 08/08/23 22:00 149/62 H 08/08/23 21:38 62 16 08/08/23 21:20 63 18 08/08/23 21:10 60 14 08/08/23 21:00 62 12 08/08/23 21:00 158/75 H 08/08/23 20:50 62 17 08/08/23 20:40 59 L 15 08/08/23 20:30 63 20 08/08/23 20:30 147/77 H 08/08/23 20:20 60 13 08/08/23 20:10 61 20 08/08/23 20:00 60 15 08/08/23 20:00 154/80 H 08/08/23 19:50 60 15 08/08/23 19:40 63 16 08/08/23 19:30 64 16 08/08/23 19:30 129/73 08/08/23 19:20 60 17 08/08/23 19:10 60 19 08/08/23 19:00 58 L 14 08/08/23 19:00 148/77 H 08/08/23 18:50 62 19 08/08/23 18:40 60 19 08/08/23 18:39 57 L 16 08/08/23 18:58 63 16 08/08/23 18:58 63 19 148/77 H 08/08/23 18:39 58 L 08/08/23 18:02 36.5 C 58 L 20 137/89 Pulse Ox O2 Del Method O2 Flow Rate 08/09/23 14:51 95 Room Air 08/09/23 14:36 94 Room Air 08/09/23 14:21 96 Room Air 08/09/23 12:37 97 Room Air 08/09/23 12:07 98 Room Air 08/09/23 08:16 99 Room Air 08/09/23 07:37 08/09/23 04:47 99 Nasal Cannula 2.0 08/08/23 23:40 08/08/23 23:12 97 Room Air 08/08/23 22:40 86 L 08/08/23 22:30 100 08/08/23 22:30 08/08/23 22:20 100 08/08/23 22:10 98 08/08/23 22:00 100 08/08/23 22:00 08/08/23 21:38 08/08/23 21:20 100 08/08/23 21:10 98 08/08/23 21:00 98 08/08/23 21:00 08/08/23 20:50 98 08/08/23 20:40 98 08/08/23 20:30 99 08/08/23 20:30 08/08/23 20:20 99 08/08/23 20:10 99 08/08/23 20:00 99 08/08/23 20:00 08/08/23 19:50 99 08/08/23 19:40 98 08/08/23 19:30 99 08/08/23 19:30 08/08/23 19:20 98 08/08/23 19:10 98 08/08/23 19:00 99 08/08/23 19:00 08/08/23 18:50 99 08/08/23 18:40 98 08/08/23 18:39 98 08/08/23 18:58 98 08/08/23 18:58 97 Room Air 08/08/23 18:39 08/08/23 18:02 97 Room Air Transfer of Care Handoff Completed per policy Notes Mental Status: alert / awake / arousable and participated in evaluation Patient Amnestic to Procedure: Yes Nausea / Vomiting: adequately controlled Pain: adequately controlled Airway Patency, RR, SpO2: stable & adequate BP & HR: stable & adequate Hydration State: stable & adequate Anesthetic Complications: no major complications apparent
--- NOTE | 2023-08-09 17:46 | Electrocardiogram Report ---
Test Reason : Blood Pressure : / mmHG Vent. Rate : 059 BPM Atrial Rate : 059 BPM P-R Int : 186 ms QRS Dur : 088 ms QT Int : 478 ms P-R-T Axes : 034 -24 014 degrees QTc Int : 473 ms Sinus bradycardia with occasional Premature ventricular complexes Minimal voltage criteria for LVH, may be normal variant Anterolateral infarct , age undetermined Abnormal ECG When compared with ECG of 24-JUL-2023 12:50, Premature ventricular complexes are now Present Anterolateral infarct is now Present Nonspecific T wave abnormality now evident in Inferior leads Nonspecific T wave abnormality, worse in Anterolateral leads Confirmed by Jose Ramon Rizvi ([id number]) on 08/09/2023 5:46:22 PM Referred By: REFERRED SELF Confirmed By:Greyson Rizvi
--- NOTE | 2023-08-09 18:31 | Hospitalist Progress Note ---
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 Acute GIB, suspecting upper in setting of esophageal varies with hx of TIPS NAFLD Cirrhosis Hepatocellular ca s/p IR embolization GAVE Anemia of chronic disease admit to PCU pt was consented, typed and crossed for 2 units, currently on hold Currently hemoglobin stable at 8.1, will transfuse her hemoglobin less than 7 or hemodynamic instability Repeat hemoglobin @ 00:00 Dr. Rivera discussed with Dr. Frances who recommended Miralax bowel prep now and in a.m. NPO after midnight for likely UGI/Cscope in am. IVF after midnight IV PPI bolus/gtt IV ocretotide bolus/gtt 1g Rocephin q24h LFTs stable with total bili 2.0, AST 45, ALT 22 and alk phos 203 Last EGD May 22, 2023: 2 columns of Grade 1 EV, mild portal gastropathy, GAVE APC'ed 08/09 s/p EGD: - Normal esophagus. - Portal hypertensive gastropathy. - Normal examined duodenum. - No evidence of bleeding was seen from the upper digestive tract during today's examination. - No specimens collected. s/p Colonoscopy: - Preparation of the colon was fair. - One 5 mm polyp in the transverse colon, removed with a cold snare. Resected and retrieved. Clip (MR conditional) was placed. Clip shiatsu therapist: [employer]. - One 5 mm polyp in the transverse colon, removed with a cold snare. Resected and retrieved. Clips (MR conditional) were placed. Clip shiatsu therapist: [employer]. - Moderate diverticulosis in the sigmoid colon and in the descending colon. There was no evidence of diverticular bleeding. - Internal hemorrhoids. - The examination was otherwise normal. continue Protonix, Octreotide, Ceftri IV T2DM, insulin dependent obtain a1c in a.m. last A1c 5.04 May 2023 lantus/novolog per protocol Chronic Pancytopenia plt ct stable in setting of liver disease T12 compression fx following [facility] conservative management for now limit narc use as it worsens encephalopathy Hepatic encephalopathy Chronic, stable, currently not encephalopathic No asterixis Continue Xifaxan and lactulose to obtain 3-5 bowel movements daily Prostate cancer Status post radiation 2020 [place] Ppx: SCDs for now given GI bleeding Code status: FULL PCP: Tanna Dispo: pending Admission and Anticipated Discharge Date Admission Date: August 08, 2023 Subjective ff up for GI Bleed, etc seen resting in bed s/p EGD and Colonoscopy feels fine overall Denies abdominal pain, nausea vomiting, fevers or chills no chest pain, dyspnea, palpitations, dizziness No other new symptoms Review of Systems Review of Systems: all noted and negative except for above Physical Exam Physical Exam: General- oriented x 3, not in distress, speaks in sentences with no effort or accessory muscle use Eyes- anicteric Neck- no JVD Lungs- clear breath sounds bilaterally, no rales/wheezes Heart- normal rate, regular rhythm; no murmurs Abdomen- normal bowel sounds, nondistended, soft, nontender Extremities- no pretibial edema, no calf tenderness Neuro- alert, oriented x 3; no gross focal neurologic deficits Skin- warm & dry Results & Data Results & Data Vital Signs (Past 12 Hours) Vital Signs Temp Pulse Pulse Resp BP BP Pulse Ox 08/09/23 16:06 36.4 C L 55 L 18 137/66 98 08/09/23 14:51 54 L 16 135/59 L 95 08/09/23 14:36 63 16 146/62 H 94 08/09/23 14:21 68 16 114/49 L 96 08/09/23 12:37 36.4 C L 54 L 18 166/73 H 97 08/09/23 12:07 36.5 C 53 L 18 159/47 H 98 08/09/23 08:16 36.5 C 55 L 18 124/56 L 99 08/09/23 07:37 60 O2 Del Method 08/09/23 16:06 Room Air 08/09/23 14:51 Room Air 08/09/23 14:36 Room Air 08/09/23 14:21 Room Air 08/09/23 12:37 Room Air 08/09/23 12:07 Room Air 08/09/23 08:16 Room Air 08/09/23 07:37 all noted and reviewed including below (1) GI (gastrointestinal bleed) GI bleed type/associated pathology: anorectal hemorrhage Qualified Code(s): K62.5 - Hemorrhage of anus and rectum (2) Anemia Anemia type: unspecified type Qualified Code(s): D64.9 - Anemia, unspecified (3) Cirrhosis Ascites presence: with ascites Hepatic cirrhosis type: unspecified hepatic cirrhosis Qualified Code(s): K74.60 - Unspecified cirrhosis of liver; R18.8 - Other ascites
[2023-08-09] MEDS: cefTRIAXone SODIUM 2,000 MG in DEXTROSE 5% 50 ML IV SCH (21:12)
[2023-08-09] MEDS: LANTUS PER UNIT CHARGE SQ SCH (21:12)
[2023-08-10] MEDS: PANTOprazole 40 MG in DEXTROSE 5% 100 ML IV SCH ×3 (02:27→11:11)
[2023-08-10] MEDS: OCTREOTIDE ACETATE 500 MCG in DEXTROSE 5% 100 ML IV SCH (02:40)
[2023-08-10] MEDS: CITALOPRAM 20 MG TAB PO SCH (08:41)
[2023-08-10] MEDS: LACTULOSE SYRUP 10 GM/15 ML BTL 960 ML PO SCH ×2 (08:41→20:12)
[2023-08-10] MEDS: allopurinoL 100 MG TAB PO SCH (08:41)
[2023-08-10] MEDS: rifAXIMin 550 MG TABLET PO SCH ×2 (08:43→22:06)
[2023-08-10] MEDS: FINASTERIDE 5 MG TAB PO SCH (08:43)
[2023-08-10] MEDS: INSULIN ASPART PER UNIT CHARGE SC SCH ×4 (08:43→22:06)
[2023-08-10] MEDS: ACETAMINOPHEN 325 MG TAB PO PRN ×2 (08:46→22:07)
[2023-08-10 10:16] LABS: Eosinophils # (auto) 0.23 K/uL (0.00-0.50); Eosinophils % (auto) 9.8 %; Hematocrit (blood only) 23.5 % (42.0-52.0); Hemoglobin 7.6 g/dl (14.0-18.0); Immature Granulocytes # (auto) 0.01 K/uL (0.01-0.20); Immature Granulocytes % (auto) 0.4 %; Lymphocytes # (auto) 0.42 K/uL (1.20-3.40); Lymphocytes % (auto) 17.9 %; Mean Corpuscular Hemoglobin 33.3 pg (25.0-34.0); Mean Corpuscular Hgb Conc 32.3 g/dL (32.0-36.0); Mean Corpuscular Volume 103.1 fL (80.0-100.0); Mean Platelet Volume 11.8 fL (9.4-12.4); Monocytes # (auto) 0.14 K/uL (0.11-0.59); Neutrophils # (auto) 1.54 K/uL (1.40-6.50); Neutrophils % (auto) 65.9 %; Platelet Count 72 K/uL (130-400); RDW Coefficient of Variation 16.8 % (11.5-14.5); RDW Standard Deviation 63.3 fL (36.4-46.3); Red Blood Count 2.28 M/uL (4.70-6.10); White Blood Count 2.34 K/ul (4.8-10.8)
[2023-08-10 10:30] LABS: BUN Creatinine Ratio 17.6 (10-20); Calcium 7.5 mg/dl (8.6-10.3); Creatinine Clr Calc Pharmacy 62.9 ml/min; Est GFR (African American) 78.5 ml/min; Est GFR (Non-African American) 67.7 ml/min
[2023-08-10 10:32] LABS: Ovalocytes 1+; Polychromasia 1+; Tear Drop Cells 1+
[2023-08-10 18:29] LABS: Hematocrit (blood only) 23.6 % (42.0-52.0)
[2023-08-10] MEDS: LANTUS PER UNIT CHARGE SQ SCH (22:06)
[2023-08-10] MEDS: cefTRIAXone SODIUM 2,000 MG in DEXTROSE 5% 50 ML IV SCH (22:08)
[2023-08-11 06:01] LABS: Basophils # (auto) 0.01 K/uL (0.00-0.20); Basophils % (auto) 0.4 %; Eosinophils # (auto) 0.27 K/uL (0.00-0.50); Eosinophils % (auto) 11.2 %; Hematocrit (blood only) 21.4 % (42.0-52.0); Hemoglobin 7.1 g/dl (14.0-18.0); Immature Granulocytes # (auto) 0.01 K/uL (0.01-0.20); Immature Granulocytes % (auto) 0.4 %; Lymphocytes # (auto) 0.54 K/uL (1.20-3.40); Lymphocytes % (auto) 22.3 %; Mean Corpuscular Hemoglobin 33.3 pg (25.0-34.0); Mean Corpuscular Hgb Conc 33.2 g/dL (32.0-36.0); Mean Corpuscular Volume 100.5 fL (80.0-100.0); Mean Platelet Volume 12.2 fL (9.4-12.4); Monocytes # (auto) 0.24 K/uL (0.11-0.59); Monocytes % (auto) 9.9 %; Neutrophils # (auto) 1.35 K/uL (1.40-6.50); Neutrophils % (auto) 55.8 %; Platelet Count 71 K/uL (130-400); RDW Coefficient of Variation 16.5 % (11.5-14.5); RDW Standard Deviation 60.2 fL (36.4-46.3); Red Blood Count 2.13 M/uL (4.70-6.10); White Blood Count 2.42 K/ul (4.8-10.8)
[2023-08-11 06:17] LABS: BUN Creatinine Ratio 21.6 (10-20); Calcium 7.3 mg/dl (8.6-10.3); Creatinine Clr Calc Pharmacy 66.6 ml/min; Est GFR (African American) 84.1 ml/min; Est GFR (Non-African American) 72.6 ml/min; Potassium 3.9 mmol/L (3.5-5.1)
[2023-08-11 06:18] LABS: Poikilocytosis Present; Polychromasia 1+
[2023-08-11] MEDS: CITALOPRAM 20 MG TAB PO SCH (08:55)
[2023-08-11] MEDS: LACTULOSE SYRUP 10 GM/15 ML BTL 960 ML PO SCH ×2 (08:55→20:28)
[2023-08-11] MEDS: INSULIN ASPART PER UNIT CHARGE SC SCH ×4 (08:55→20:39)
[2023-08-11] MEDS: FINASTERIDE 5 MG TAB PO SCH (08:55)
[2023-08-11] MEDS: rifAXIMin 550 MG TABLET PO SCH ×2 (08:57→21:31)
[2023-08-11] MEDS: allopurinoL 100 MG TAB PO SCH (08:57)
[2023-08-11] MEDS: PANTOprazole 40 MG TAB PO SCH ×2 (09:56→21:32)
[2023-08-11 12:41] LABS: Hematocrit (blood only) 22.2 % (42.0-52.0); Hemoglobin 7.5 g/dl (14.0-18.0)
--- NOTE | 2023-08-11 14:23 | Hospitalist Progress Note ---
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 Acute GIB, suspecting upper in setting of esophageal varies with hx of TIPS NAFLD Cirrhosis Hepatocellular ca s/p IR embolization GAVE Anemia of chronic disease admit to PCU pt was consented, typed and crossed for 2 units, currently on hold Currently hemoglobin stable at 8.1, will transfuse her hemoglobin less than 7 or hemodynamic instability Repeat hemoglobin @ 00:00 Dr. Rivera discussed with Dr. Frances who recommended Miralax bowel prep now and in a.m. NPO after midnight for likely UGI/Cscope in am. IVF after midnight IV PPI bolus/gtt IV ocretotide bolus/gtt 1g Rocephin q24h LFTs stable with total bili 2.0, AST 45, ALT 22 and alk phos 203 Last EGD May 22, 2023: 2 columns of Grade 1 EV, mild portal gastropathy, GAVE APC'ed 08/09 s/p EGD: - Normal esophagus. - Portal hypertensive gastropathy. - Normal examined duodenum. - No evidence of bleeding was seen from the upper digestive tract during today's examination. - No specimens collected. s/p Colonoscopy: - Preparation of the colon was fair. - One 5 mm polyp in the transverse colon, removed with a cold snare. Resected and retrieved. Clip (MR conditional) was placed. Clip director of resource development: [employer]. - One 5 mm polyp in the transverse colon, removed with a cold snare. Resected and retrieved. Clips (MR conditional) were placed. Clip director of resource development: [employer]. - Moderate diverticulosis in the sigmoid colon and in the descending colon. There was no evidence of diverticular bleeding. - Internal hemorrhoids. - The examination was otherwise normal. continue Protonix, Octreotide, Ceftri IV 9/9 Hg fluctuating but no recurrence of GI bleed noted monitor d/c Protonix drip and Octreotide T2DM, insulin dependent obtain a1c in a.m. last A1c 5.04 May 2023 lantus/novolog per protocol Chronic Pancytopenia plt ct stable in setting of liver disease T12 compression fx following [facility] conservative management for now limit narc use as it worsens encephalopathy Hepatic encephalopathy Chronic, stable, currently not encephalopathic No asterixis Continue Xifaxan and lactulose to obtain 3-5 bowel movements daily Prostate cancer Status post radiation 2020 [place] Ppx: SCDs for now given GI bleeding Code status: FULL PCP: Tanna Dispo: pending Admission and Anticipated Discharge Date Admission Date: August 08, 2023 Subjective ff up for GI bleed, etc seen resting in bed, comfortable (+)BMs no melena/hematochezia no abdominal pain nausea/vomiting no chest pain, dyspnea, palpitations, dizziness Review of Systems Review of Systems: all noted and negative except for above Physical Exam Physical Exam: General- oriented x 3, not in distress, speaks in sentences with no effort or accessory muscle use Eyes- anicteric Neck- no JVD Lungs- clear breath sounds bilaterally Heart- normal rate, regular rhythm; no murmurs Abdomen- normal bowel sounds, nondistended, soft, nontender Extremities- no pretibial edema, no calf tenderness Neuro- alert, oriented x 3; no gross focal neurologic deficits Skin- warm & dry Results & Data Results & Data Vital Signs (Past 12 Hours) Vital Signs Temp Pulse Resp BP Pulse Ox O2 Del Method O2 Flow Rate 08/11/23 11:46 36.7 C 60 18 149/65 H 97 Room Air 08/11/23 08:03 36.6 C 58 L 19 153/67 H 97 Room Air 08/11/23 03:11 36.7 C 61 16 139/65 98 Nasal Cannula 2 all noted and reviewed including below (1) GI (gastrointestinal bleed) GI bleed type/associated pathology: anorectal hemorrhage Qualified Code(s): K62.5 - Hemorrhage of anus and rectum (2) Anemia Anemia type: unspecified type Qualified Code(s): D64.9 - Anemia, unspecified (3) Cirrhosis Ascites presence: with ascites Hepatic cirrhosis type: unspecified hepatic c irrhosis Qualified Code(s): K74.60 - Unspecified cirrhosis of liver; R18.8 - Other ascites
--- NOTE | 2023-08-11 14:26 | Hospitalist Progress Note ---
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 Acute GIB, suspecting upper in setting of esophageal varies with hx of TIPS NAFLD Cirrhosis Hepatocellular ca s/p IR embolization GAVE Anemia of chronic disease admit to PCU pt was consented, typed and crossed for 2 units, currently on hold Currently hemoglobin stable at 8.1, will transfuse her hemoglobin less than 7 or hemodynamic instability Repeat hemoglobin @ 00:00 Dr. Rivera discussed with Dr. Frances who recommended Miralax bowel prep now and in a.m. NPO after midnight for likely UGI/Cscope in am. IVF after midnight IV PPI bolus/gtt IV ocretotide bolus/gtt 1g Rocephin q24h LFTs stable with total bili 2.0, AST 45, ALT 22 and alk phos 203 Last EGD May 22, 2023: 2 columns of Grade 1 EV, mild portal gastropathy, GAVE APC'ed 08/09 s/p EGD: - Normal esophagus. - Portal hypertensive gastropathy. - Normal examined duodenum. - No evidence of bleeding was seen from the upper digestive tract during today's examination. - No specimens collected. s/p Colonoscopy: - Preparation of the colon was fair. - One 5 mm polyp in the transverse colon, removed with a cold snare. Resected and retrieved. Clip (MR conditional) was placed. Clip game master: [employer]. - One 5 mm polyp in the transverse colon, removed with a cold snare. Resected and retrieved. Clips (MR conditional) were placed. Clip game master: [employer]. - Moderate diverticulosis in the sigmoid colon and in the descending colon. There was no evidence of diverticular bleeding. - Internal hemorrhoids. - The examination was otherwise normal. continue Protonix, Octreotide, Ceftri IV 9/9 Hg fluctuating but no recurrence of GI bleed noted monitor d/c Protonix drip and Octreotide 9/10 Hg 7.1 --> 7.5 no recurrence of GI bleed continue to monitor T2DM, insulin dependent lantus/novolog per protocol Chronic Pancytopenia plt ct stable in setting of liver disease T12 compression fx following [facility] conservative management for now limit narc use as it worsens encephalopathy Hepatic encephalopathy Chronic, stable, currently not encephalopathic No asterixis Continue Xifaxan and lactulose to obtain 3-5 bowel movements daily Prostate cancer Status post radiation 2020 [place] Ppx: SCDs for now given GI bleeding Code status: FULL PCP: Tanna Dispo: pending PT/OT eval lives with family at home Admission and Anticipated Discharge Date Admission Date: August 08, 2023 Subjective ff up for GI bleed, etc seen resting in bed, comfortable in good spirits had 2 BMs today, no signs of bleeding no chest pain, dyspnea, palpitations, dizziness no other new symptoms ambulating in the room with no problems Review of Systems Review of Systems: all noted and negative except for above Physical Exam Physical Exam: General- oriented x 3, not in distress, speaks in sentences with no effort or accessory muscle use Eyes- anicteric Neck- no JVD Lungs- clear BS BL Heart- normal rate, regular rhythm; no murmurs Abdomen- normal bowel sounds, nondistended, soft, nontender Extremities- no pretibial edema, no calf tenderness Neuro- alert, oriented x 3; no gross focal neurologic deficits Skin- warm & dry Results & Data Results & Data Vital Signs (Past 12 Hours) Vital Signs Temp Pulse Resp BP Pulse Ox O2 Del Method O2 Flow Rate 08/11/23 11:46 36.7 C 60 18 149/65 H 97 Room Air 08/11/23 08:03 36.6 C 58 L 19 153/67 H 97 Room Air 08/11/23 03:11 36.7 C 61 16 139/65 98 Nasal Cannula 2 all noted and reviewed including below (1) GI (gastrointestinal bleed) GI bleed type/associated pathology: anorectal hemorrhage Qualified Code(s): K62.5 - Hemorrhage of anus and rectum (2) Anemia Anemia type: unspecified type Qualified Code(s): D64.9 - Anemia, unspecified (3) Cirrhosis Ascites presence: with ascites Hepatic cirrhosis type: unspecified hepatic cirrhosis Qualified Code(s): K74.60 - Unspecified cirrhosis of liver; R18.8 - Other ascites
[2023-08-11] MEDS: ACETAMINOPHEN 325 MG TAB PO PRN (19:22)
[2023-08-11] MEDS: cefTRIAXone SODIUM 2,000 MG in DEXTROSE 5% 50 ML IV SCH (21:31)
[2023-08-11] MEDS: LANTUS PER UNIT CHARGE SQ SCH (21:32)
[2023-08-12 09:02] LABS: Basophils # (auto) 0.01 K/uL (0.00-0.20); Basophils % (auto) 0.4 %; Eosinophils # (auto) 0.27 K/uL (0.00-0.50); Eosinophils % (auto) 9.7 %; Hematocrit (blood only) 22.8 % (42.0-52.0); Hemoglobin 7.4 g/dl (14.0-18.0); Immature Granulocytes # (auto) 0.03 K/uL (0.01-0.20); Immature Granulocytes % (auto) 1.1 %; Lymphocytes # (auto) 0.57 K/uL (1.20-3.40); Lymphocytes % (auto) 20.5 %; Mean Corpuscular Hemoglobin 33.6 pg (25.0-34.0); Mean Corpuscular Hgb Conc 32.5 g/dL (32.0-36.0); Mean Corpuscular Volume 103.6 fL (80.0-100.0); Mean Platelet Volume 12.5 fL (9.4-12.4); Monocytes # (auto) 0.22 K/uL (0.11-0.59); Monocytes % (auto) 7.9 %; Neutrophils # (auto) 1.68 K/uL (1.40-6.50); Neutrophils % (auto) 60.4 %; Platelet Count 70 K/uL (130-400); RDW Coefficient of Variation 16.8 % (11.5-14.5); White Blood Count 2.78 K/ul (4.8-10.8)
[2023-08-12 09:32] LABS: Polychromasia 2+; Spherocytes 1+; Tear Drop Cells 1+
[2023-08-12] MEDS: PANTOprazole 40 MG TAB PO SCH (10:01)
[2023-08-12] MEDS: LACTULOSE SYRUP 10 GM/15 ML BTL 960 ML PO SCH (10:02)
[2023-08-12] MEDS: FINASTERIDE 5 MG TAB PO SCH (10:02)
[2023-08-12] MEDS: CITALOPRAM 20 MG TAB PO SCH (10:02)
[2023-08-12] MEDS: rifAXIMin 550 MG TABLET PO SCH (10:02)
[2023-08-12] MEDS: allopurinoL 100 MG TAB PO SCH (10:02)
[2023-08-12] MEDS: INSULIN ASPART PER UNIT CHARGE SC SCH ×2 (10:06→12:18)
[2023-08-12 15:10] VITALS: BP 131/63; PULSE 60; TEMP 98.1; O2SAT 97
--- NOTE | 2023-08-12 18:40 | Discharge Summary ---
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 Son is at bedside who also helps elicit history. Patient developed bright red blood per rectum this morning around 6 AM. As the day progressed he then had melena. Over the course of the day he also started spitting up bright red blood clots secondary to prior retching due to nausea. He currently complains of generalized abdominal pain mostly lower. He denies any recent illness, fever, chills, sweats, lightheadedness, dizziness, chest pain, shortness of breath, dysuria, increased urgency or frequency with urination. He lives at home with his and typically ambulates with a walker. Of significance he did recently sustain a T12 compression fracture. He was seen by Dr. Lockhart and also received a second opinion done at [facility] last week who currently recommends conservative management giving high risk surgical candidate. He does still continue to have back pain and uses oxycodone intermittently. He is having anywhere from 3-5 bowel movements daily secondary to lactulose. He has only been taking lactulose once a day as baclofen has also been aiding and his bowel movements as well. In ED patient remained hemodynamically stable. His hemoglobin was stable at 8.1. ER provider spoke directly with gastroenterology who is recommending admission for upper and lower endoscopy tomorrow with MiraLAX bowel prep. 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 Acute GIB, suspecting upper in setting of esophageal varies with hx of TIPS NAFLD Cirrhosis Hepatocellular ca s/p IR embolization GAVE Anemia of chronic disease admit to PCU LFTs stable with total bili 2.0, AST 45, ALT 22 and alk phos 203 Last EGD May 22, 2023: 2 columns of Grade 1 EV, mild portal gastropathy, GAVE APC'ed 08/09 s/p EGD: - Normal esophagus. - Portal hypertensive gastropathy. - Normal examined duodenum. - No evidence of bleeding was seen from the upper digestive tract during today's examination. - No specimens collected. s/p Colonoscopy: - Preparation of the colon was fair. - One 5 mm polyp in the transverse colon, removed with a cold snare. Resected and retrieved. Clip (MR conditional) was placed. Clip hot wort settler: iTwin. - One 5 mm polyp in the transverse colon, removed with a cold snare. Resected and retrieved. Clips (MR conditional) were placed. Clip hot wort settler: iTwin. - Moderate diverticulosis in the sigmoid colon and in the descending colon. There was no evidence of diverticular bleeding. - Internal hemorrhoids. - The examination was otherwise normal. continue Protonix, Octreotide, Ceftri IV 9/9 Hg fluctuating but no recurrence of GI bleed noted monitor d/c Protonix drip and Octreotide 9/10 Hg 7.1 --> 7.5 no recurrence of GI bleed continue to monitor 9/11 Hg stable no signs of GI bleed recurrence did not require blood transfusion d/c home ff up with GI as outpatient- repeat Colonoscopy in 1 year T2DM, insulin dependent Lantus/Novolog per protocol Chronic Pancytopenia plt ct stable in setting of liver disease T12 compression fx following [facility] conservative management for now limit narc use as it worsens encephalopathy Hepatic encephalopathy Chronic, stable, currently not encephalopathic No asterixis Continue Xifaxan and lactulose to obtain 3-5 bowel movements daily Prostate cancer Status post radiation 2020 Discharge Exam General- oriented x 3, not in distress, speaks in sentences with no effort or accessory muscle use Eyes- anicteric Neck- no JVD Lungs- clear breath sounds bilaterally, no rales/wheezes Heart- normal rate, regular rhythm; no murmurs Abdomen- normal bowel sounds, nondistended, soft, nontender Extremities- no pretibial edema, no calf tenderness Neuro- alert, oriented x 3; no gross focal neurologic deficits Skin- warm & dry Updated Medication List Medication Instructions Recorded Confirmed Type citalopram 10 mg tablet (Celexa) 10 mg PO QAM 03/24/20 08/08/23 History allopurinol 100 mg tablet 200 mg PO QAM 05/16/20 08/08/23 History finasteride 5 mg tablet 5 mg PO QAM 11/03/21 08/08/23 History furosemide 20 mg tablet (Lasix) 40 mg PO QAM 11/02/22 08/08/23 History insulin glargine 100 unit/mL 22 unit subcut HS 11/05/22 08/08/23 History subcutaneous solution (Lantus U-100 Insulin) acetaminophen 325 mg tablet 650 mg PO Q8H PRN Pain 02/24/23 08/08/23 History (Tylenol) triamcinolone acetonide 0.1 % 1 applic topical BID PRN PSORIATIC 02/24/23 08/08/23 History topical cream LESIONS WHEN NEEDED pantoprazole 40 mg tablet,delayed 40 mg PO BID 90 days #180 tabs 02/28/23 08/08/23 Rx release Lactobacil.acidophilus-Bifido.animalis 1 cap PO QAM 05/17/23 08/08/23 History 5 billion cell sprinkle capsule (Probiotic) acetylcysteine 600 mg capsule 600 mg PO QAM 05/17/23 08/08/23 History ferrous sulfate 325 mg (65 mg 325 mg PO QAM 05/17/23 08/08/23 History iron) tablet (iron) zgjhgiffkeco-kxy-xhrzp acid-vit 1 tab PO DAILY 05/17/23 08/08/23 History K-lycop 400 mcg-20 mcg-370 mcg tablet (Men's 50 Plus Multivitamin) rifaximin 550 mg tablet (Xifaxan) 550 mg PO BID 05/17/23 08/08/23 History zinc acetate 50 mg (zinc) capsule 50 mg PO QAM 05/17/23 08/08/23 History oxycodone 5 mg tablet 5 mg PO Q6H PRN pain #12 tabs 07/10/23 08/08/23 Rx baclofen 5 mg tablet 5 mg PO BID 07/24/23 08/08/23 History lactulose 10 gram oral packet 10 g PO BID 08/08/23 08/08/23 History (Kristalose) Hospital Stay Data Consultations 08/08/23 19:57 ED Decision to Admit Stat 08/08/23 20:21 Consult Gastroenterology Routine Procedures Performed Operation Date: 08/09/23 16:45 Actual Procedures p Colonoscopy Polypectomy - Edis Price DO s Esophagogastroduodenoscopy - Edis Price, Diagnostic Imagining Performed Laboratory Results WBC 2.78 K/ul (4.8-10.8) L 08/12/23 08:30 RBC 2.20 M/uL (4.70-6.10) L 08/12/23 08:30 Hgb 7.4 g/dl (14.0-18.0) L 08/12/23 08:30 Hct 22.8 % (42.0-52.0) L 08/12/23 08:30 MCV 103.6 fL (80.0-100.0) H 08/12/23 08:30 MCH 33.6 pg (25.0-34.0) 08/12/23 08:30 MCHC 32.5 g/dL (32.0-36.0) 08/12/23 08:30 RDW Std Deviation 63.0 fL (36.4-46.3) H 08/12/23 08:30 RDW Coeff of Violetta 16.8 % (11.5-14.5) H 08/12/23 08:30 Plt Count 70 K/uL (130-400) L 08/12/23 08:30 MPV 12.5 fL (9.4-12.4) H 08/12/23 08:30 Immature Gran % (Auto) 1.1 % 08/12/23 08:30 Neut % (Auto) 60.4 % 08/12/23 08:30 Lymph % (Auto) 20.5 % 08/12/23 08:30 [place] % (Auto) 7.9 % 08/12/23 08:30 Eos % (Auto) 9.7 % 08/12/23 08:30 Baso % (Auto) 0.4 % 08/12/23 08:30 Neut # (Auto) 1.68 K/uL (1.40-6.50) 08/12/23 08:30 Lymph # (Auto) 0.57 K/uL (1.20-3.40) L 08/12/23 08:30 [place] # (Auto) 0.22 K/uL (0.11-0.59) 08/12/23 08:30 Eos # (Auto) 0.27 K/uL (0.00-0.50) 08/12/23 08:30 Baso # (Auto) 0.01 K/uL (0.00-0.20) 08/12/23 08:30 Immature Gran # (Auto) 0.03 K/uL (0.01-0.20) 08/12/23 08:30 Polychromasia 2+ 08/12/23 08:30 Poikilocytosis Present 08/11/23 04:38 Spherocytes 1+ 08/12/23 08:30 Tear Drop Cells 1+ 08/12/23 08:30 Ovalocytes 1+ 08/10/23 09:57 PT 12.4 Seconds (9.0-12.0) H 08/09/23 06:02 INR 1.1 (0.9-1.1) 08/09/23 06:02 APTT 29.3 Seconds (21.0-31.0) 08/08/23 18:14 PTT Ratio 1.0 08/08/23 18:14 Sodium 137 mmol/L (136-145) 08/11/23 04:38 Potassium 3.9 mmol/L (3.5-5.1) 08/11/23 04:38 Chloride 112 mmol/L (98-107) H 08/11/23 04:38 Carbon Dioxide 21 mmol/L (21-32) 08/11/23 04:38 Anion Gap 4 (3-11) 08/11/23 04:38 BUN 22 mg/dl (6-23) 08/11/23 04:38 Creatinine 1.02 mg/dl (0.6-1.4) 08/11/23 04:38 Est Cr Clr Drug Dosing 66.6 ml/min 08/11/23 04:38 Est GFR ( Amer) 84.1 ml/min 08/11/23 04:38 Est GFR (Non-Af Amer) 72.6 ml/min 08/11/23 04:38 BUN/Creatinine Ratio 21.6 (10-20) H 08/11/23 04:38 Glucose 151 mg/dl (70-99(Fasting)) H 08/11/23 04:38 POC Glucose 135 mg/dl (70-99) H 08/12/23 16:29 Estimat Average Glucose 85 mg/dl 08/09/23 06:02 Hemoglobin A1c 4.6 % (4.5-5.6) 08/09/23 06:02 Calcium 7.3 mg/dl (8.6-10.3) L 08/11/23 04:38 Magnesium 1.6 mg/dl (1.7-2.4) L 08/09/23 06:02 Total Bilirubin 3.0 mg/dl (0.2-1.0) H 08/09/23 06:02 AST 36 U/L (13-39) 08/09/23 06:02 ALT 20 U/L (7-52) 08/09/23 06:02 Alkaline Phosphatase 173 U/L (34-104) H 08/09/23 06:02 Troponin I High Sens 7.5 pg/ml (0-20) 08/08/23 19:46 Total Protein 6.1 gm/dl (6.0-8.3) 08/09/23 06:02 Albumin 2.7 gm/dl (3.4-5.0) L 08/09/23 06:02 Globulin 3.4 gm/dl (2.5-4.0) 08/09/23 06:02 Albumin/Globulin Ratio 0.8 (0.9-2) L 08/09/23 06:02 Hepatitis C Ab (EIA) NON-REACTIVE (NON-REACTIVE) 08/09/23 06:02 Blood Type O Positive 08/08/23 18:14 Antibody Screen NEGATIVE 08/08/23 18:14 Impressions Chest X-Ray 08/08/23 19:05 XR chest 1V portable CLINICAL HISTORY: GIB TECHNIQUE: Single frontal radiograph of the chest was obtained. Comparison: Comparison is made to chest radiograph 07/24/2023 FINDINGS: No lines and tubes are seen. The cardiomediastinal silhouette is normal. Faint right lower lung airspace opacity is seen. No evidence of pleural effusion or pneumothorax. IMPRESSION: Faint right lower lung airspace opacity may represent atelectasis, pneumonia, and/or aspiration. ACT 112: Negative or not required by law. Electronically signed by: Arik Flowers M.D. 08/09/2023 7:18 AM Abdomen/Pelvis CT 08/08/23 20:42 Exam(s): CT ABDOMEN + PELVIS With Contrast IV Amt: 88 ml optiray 320 EXAM: CT Abdomen and Pelvis With Intravenous Contrast CLINICAL HISTORY: Reason for exam: gib. TECHNIQUE: Axial computed tomography images of the abdomen and pelvis with intravenous contrast. CTDI is 22.69 mGy and DLP is 1175.25 mGy-cm. Automated exposure control was utilized for the study. A dose lowering technique was utilized adhering to the principles of ALARA. CONTRAST: Patient received 88 ml optiray 320 of IV contrast COMPARISON: No relevant prior studies available. FINDINGS: Lung bases: Unremarkable. No mass. No consolidation. ABDOMEN: Liver: TIPS stent. Hepatic cirrhosis. Splenomegaly. Abdominal and pelvic ascites. Gallbladder and bile ducts: Unremarkable. No calcified stones. No ductal dilation. Pancreas: Unremarkable. No mass. No ductal dilation. Spleen: See above. Adrenals: Unremarkable. No mass. Kidneys and ureters: Unremarkable. No hydronephrosis or delayed nephrogram. Stomach and bowel: Diverticulosis, without acute diverticulitis. No small bowel obstruction. No free intraperitoneal air. PELVIS: Appendix: Normal appendix. Bladder: Unremarkable. No mass. Reproductive: Unremarkable as visualized. ABDOMEN and PELVIS: Intraperitoneal space: See above. Bones/joints: Degenerative changes of the spine. No acute fracture. No dislocation. Soft tissues: Unremarkable. Vasculature: Atherosclerotic changes of the aorta. No abdominal aortic aneurysm. Lymph nodes: Unremarkable. No enlarged lymph nodes. IMPRESSION: 1. Normal appendix. 2. TIPS stent. Hepatic cirrhosis. Splenomegaly. Abdominal and pelvic ascites. 3. Diverticulosis, without acute diverticulitis. No small bowel obstruction. No free intraperitoneal air. Electronically signed by: Prabhakar Medel MD 08/08/23 22:38 PM 08/08/23 20:42 CT Abd and Pelvis [CT abd pelvis IV con only] Stat Pending Results Patient Have Any Pending Studies at Discharge: No Discharge Instructions Given to Patient (Per Discharging Provider) Please continue your usual medication regimen. Do not take medications under the class of NSAIDs including aspirin, ibuprofen, naproxen, etc. PLEASE CALL YOUR PRIMARY CARE PHYSICIAN OR RETURN TO THE ER IF WITH WORSENING OF SYMPTOMS, INCLUDING Abdominal pain, nausea vomiting, black or bloody stools, weakness, shortness of breath, chest pain, etc. FOLLOW UP WITH PRIMARY CARE PHYSICIAN OUTLINED ABOVE. FOLLOW UP WITH CERTIFIED OPHTHALMIC SURGICAL ASSISTANT SCHEDULED. Total Time Total Time Spent Total Time Spent (In Minutes): >30 minutes
== END 2023-08-12 17:34 | disposition home or self-care (01) | DRG 432 ==
LOC: ED 17:58 → 4W 20:21 → SUATTDRO 20:21 → 4W 22:58

== ENCOUNTER 2023-09-21 16:36 | Observation (INO) ==
[2023-09-21] MEDS ORDERED: ONDANSETRON INJ 2 MG/ML 2 ML VIAL IV STA (16:52)
--- NOTE | 2023-09-21 16:58 | Emergency Department Note ---
Impression & Plan Acute hepatic encephalopathy, Ataxia, Pancytopenia, Hyperbilirubinemia ED Provider Note NAME: MERRITT TAPIA AGE: 73 SEX: M : 1950 ARRIVES VIA: Walk-In INFORMANT: Patient, the patient's family member ED PROVIDER(S): Salvador Aly DO CHIEF COMPLAINT: Vertigo HPI: The patient is a 73-year-old male who presented to the emergency department for an evaluation of difficulty ambulating. The patient states that his symptoms began at some point last evening. He has been noticing when he tries to ambulate he feels very unsteady. He denies having any headache. He denies having any tinnitus. He has had no falls over the last few days. The patient has been compliant with his outpatient medications. He has a history of Dalton. He has had a TIPS procedure in the past. The patient denies having any GI bleeding or abdominal pain. ROS: See above HPI for pertinent positives & negatives. A total of 10 systems reviewed and were otherwise negative. PAST MEDICAL HISTORY: See Below PAST SURGICAL HISTORY: See Below FAMILY HISTORY: See Below SOCIAL HISTORY: See Below HOME MEDICATIONS: See Below ALLERGIES: See Below VITALS: See Below PHYSICAL EXAMINATION: GENERAL: The patient is awake but somewhat listless. He does not appear to be uncomfortable. EYES: The conjunctivae are pale. The pupils are round and reactive. EARS, NOSE, MOUTH AND THROAT: The nose is without any evidence of any deformity. NECK: The neck is nontender and supple. RESPIRATORY: Normal respiratory effort is noted there is no evidence of wheezing rhonchi or rales CARDIOVASCULAR: Regular rate and rhythm was noted to auscultation. Systolic murmur suggested. GASTROINTESTINAL: The abdomen was soft and mildly distended. There is no t enderness guarding or rigidity. MUSCULOSKELETAL/EXTREMITIES: There is no evidence of gross deformity full range of motion is noted in the hips and shoulders. SKIN: The skin is warm and dry. Pedal edema was noted bilaterally. NEUROLOGIC: Patient is awake and oriented x3 . Strength is symmetric. H eel-to-arreola was symmetric. Speech was soft but clear. MEDICAL DECISION MAKING: The patient is a 73-year-old male who has a history of Dalton who presented to the emergency department for altered mental status. The patient was found to have an elevated ammonia level. He has had a presentation similar to this in the past. His bilirubin was elevated. There is no definite signs of infection although urinalysis does appear to be consistent with hematuria. I discussed the patient's laboratory and radiographic studies with him as well as his family member. I also discussed his condition with the on-call [facility] hospitalist. He was treated with a small fluid bolus as well as lactulose. Triage Nursing notes reviewed. Prior medical records reviewed Vital Signs: reviewed and remarkable for elevated blood pressure. Differential diagnosis: Benign positional vertigo, dehydration, hypovolemia, anemia, tumor, infection, hypoglycemia, electrolyte abnormalities, cardiac sources, intracerebral event, toxicologic, neurologic, as well as other pathologies. ER treatment provided: See below Diagnostics interpreted by me: ECG: EKG was obtained in the emergency department. My interpretation is sinus rhythm at 62 bpm. PVCs were noted. There is no acute ST segment abnormalities noted. This was compared to a tracing from August 27, 2023. No changes were noted. Cardiac Monitoring: An order was placed for continuous cardiac monitoring. The monitor shows a rate of 63 bpm with sinus rhythm. Laboratory studies: As stated above and show below. Imaging studies: See below. Radiographic imaging was reviewed by myself Consultation(s): I discussed this case with Dr. Herring [facility]. [facility]/Surg History Medical History Anemia of chronic disease under surveillance Anxiety and depression CKD (chronic kidney disease) stage 3, GFR 30-59 ml/min Encounter for pre-operative examination Esophageal varices EGD 05/22/23 ([facility]): Grade 1 varices in distal esophagus without high risk stigmata GAVE (gastric antral vascular ectasia) GERD (gastroesophageal reflux disease) Gout No current issues Hepatocellular carcinoma History of blood transfusion 11/2022 History of panic attacks History of recent hospitalization 06/2023 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 spots Under surveillance, stable per patient Prostate cancer Hx radiation Psoriasis Spinal fracture of T12 vertebra Upper GI bleed Hx Surgical History History of abdominal paracentesis Multiple, most recent 01/2023 History of colonoscopy with polypectomy History of esophagogastroduodenoscopy (EGD) Most recent 05/2023 [facility] History of left cataract surgery History of prostate biopsy malignant History of right cataract surgery History of tonsillectomy and adenoidectomy S/P TIPS (transjugular intrahepatic portosystemic shunt) Family History Father , "3/4 liver gone due to drinking" Colorectal cancer, Onset Age: 63 Mother Lung cancer Daughter Cancer cervical and thyroid cancers Ovarian cancer Other No family history of adverse response to anesthesia 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 Smoking Status: Never smoker Second Hand Exposure: No; Do You Dip or Chew Tobacco: No; Hx Alcohol Use: No Hx Substance Use: No Preferred Language: Scottish Communication Ability: Effective Visual Impairment: No Limitations Hearing Ability: Normal Business Project Analyst Required: No Beliefs That Will Affect Care: None marital status: Current Living Situation: Family Current Living Situation Comment: Home with , Son and Daughter assist with ADLs 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 How many Children do You have: 6 How many Children do You have Comment: one , eldest daughter in her sleep from seizure disorder Feels Safe at Home: Yes Childhood Exposure to Second-Hand Smoke: Yes Diet Comment: "I watch my sugar, average fasting is 140 mg/dl" caffeine: Yes (cola, sugar free, decaf) during the past year weight has: remained stable Dental Care, Regularly: No Physical Activity Frequency: Does not Exercise Seatbelt Use: always Sunscreen Use: Yes Assistive Devices: Stair Lift and Walker Allergies Allergies Allergy/AdvReac Type Severity Reaction Status Date / Time No Known Allergies Allergy Mild Verified 07/24/23 15:13 Home Meds Home Medications Medication Instructions Recorded Confirmed citalopram 10 mg tablet (Celexa) 10 mg PO QAM 03/24/20 08/27/23 allopurinol 100 mg tablet 200 mg PO QAM 05/16/20 08/27/23 finasteride 5 mg tablet 5 mg PO QAM 11/03/21 08/27/23 furosemide 20 mg tablet (Lasix) 40 mg PO QAM 11/02/22 08/27/23 insulin glargine 100 unit/mL 7 unit subcut QDD 11/05/22 08/27/23 subcutaneous solution (Lantus U-100 Insulin) acetaminophen 325 mg tablet 650 mg PO Q8H PRN Pain 02/24/23 08/27/23 (Tylenol) triamcinolone acetonide 0.1 % 1 applic topical BID PRN PSORIATIC 02/24/23 08/27/23 topical cream LESIONS WHEN NEEDED Lactobacil.acidophilus-Bifido.animalis 1 cap PO QAM 05/17/23 08/27/23 5 billion cell sprinkle capsule (Probiotic) acetylcysteine 600 mg capsule 600 mg PO QAM 05/17/23 08/08/23 ferrous sulfate 325 mg (65 mg 325 mg PO QAM 05/17/23 08/27/23 iron) tablet (iron) [id number] acid-vit 1 tab PO DAILY 05/17/23 08/27/23 K-lycop 400 mcg-20 mcg-370 mcg tablet (Men's 50 Plus Multivitamin) rifaximin 550 mg tablet (Xifaxan) 550 mg PO BID 05/17/23 08/27/23 zinc acetate 50 mg (zinc) capsule 50 mg PO QAM 05/17/23 08/27/23 baclofen 5 mg tablet 5 mg PO AMPM 07/24/23 08/27/23 lactulose 10 gram oral packet 10 g PO BID 08/08/23 08/27/23 (Kristalose) Previous Rx's Medication Instructions Recorded pantoprazole 40 mg tablet,delayed 40 mg PO BID 90 days #180 tabs 02/28/23 release oxycodone 5 mg tablet 5 mg PO Q6H PRN pain #12 tabs 07/10/23 Results & Data (ED) Vital Signs Vital Signs - 24 hr 09/21/23 16:39 09/21/23 17:01 09/21/23 17:08 Temperature 36.5 C Temperature Source Temporal Artery Scan Pulse Rate 67 63 64 Pulse Rate [Apical] Pulse Rhythm Regular Pulse Rhythm [Apical] Pulse Strength [Apical] Respiratory Rate 20 20 Respiratory Effort / Characteristics Non-Labored Respiratory Depth Normal Respiratory Pattern Blood Pressure 145/73 H Blood Pressure [Right Arm] Blood Pressure Mean 97 Blood Pressure Mean [Right Arm] Pulse Oximetry 99 98 Oxygen Delivery Method Room Air Room Air Sepsis Recent Fever Within 48 Hours No Sepsis New/Unexplained Change in Mental Status No Sepsis Action Taken by Nursing No Action Required 09/21/23 17:00 09/21/23 19:12 09/21/23 20:00 Temperature Temperature Source Pulse Rate 63 61 Pulse Rate [Apical] 63 Pulse Rhythm Pulse Rhythm [Apical] Regular Pulse Strength [Apical] Normal Respiratory Rate 17 15 22 Respiratory Effort / Characteristics Non-Labored Spontaneous Respiratory Depth Normal Respiratory Pattern Regular Blood Pressure 146/69 H 133/73 Blood Pressure [Right Arm] 162/79 H Blood Pressure Mean 94 93 Blood Pressure Mean [Right Arm] 106 Pulse Oximetry 99 98 97 Oxygen Delivery Method Room Air Room Air Room Air Sepsis Recent Fever Within 48 Hours Sepsis New/Unexplained Change in Mental Status Sepsis Action Taken by Care Home Medications Current Medication List: was personally reviewed by me Laboratory Data Attestation: I reviewed the patient's lab results. 09/21/23 17:00 09/21/23 17:00 Lab Results 09/21/23 09/21/23 09/21/23 Range/Units 17:00 17:00 17:00 WBC 2.81 L (4.8-10.8) K/ul RBC 2.57 L (4.70-6.10) M/uL Hgb 8.4 L (14.0-18.0) g/dl Hct 25.2 L (42.0-52.0) % MCV 98.1 (80.0-100.0) fL MCH 32.7 (25.0-34.0) pg MCHC 33.3 (32.0-36.0) g/dL RDW Std Deviation 57.6 H (36.4-46.3) fL RDW Coeff of [place] 16.4 H (11.5-14.5) % Plt Count 86 L (130-400) K/uL MPV 12.9 H (9.4-12.4) fL Immature Gran % (Auto) 0.7 % Neut % (Auto) 65.9 % Lymph % (Auto) 19.9 % [place] % (Auto) 7.1 % Eos % (Auto) 5.7 % Baso % (Auto) 0.7 % Neut # (Auto) 1.85 (1.40-6.50) K/uL Lymph # (Auto) 0.56 L (1.20-3.40) K/uL [place] # (Auto) 0.20 (0.11-0.59) K/uL Eos # (Auto) 0.16 (0.00-0.50) K/uL Baso # (Auto) 0.02 (0.00-0.20) K/uL Immature Gran # (Auto) 0.02 (0.01-0.20) K/uL PT (9.0-12.0) Seconds INR (0.9-1.1) APTT (21.0-31.0) Seconds PTT Ratio Sodium 137 (136-145) mmol/L Potassium 4.0 (3.5-5.1) mmol/L Chloride 112 H (98-107) mmol/L Carbon Dioxide 22 (21-32) mmol/L Anion Gap 3 (3-11) BUN 25 H (6-23) mg/dl Creatinine 1.02 (0.6-1.4) mg/dl Est Cr Clr Drug Dosing 76.1 ml/min Est GFR ( Amer) 84.1 ml/min Est GFR (Non-Af Amer) 72.6 ml/min BUN/Creatinine Ratio 24.5 H (10-20) Glucose 260 H (70-99(Fasting)) mg/dl Calcium 8.6 (8.6-10.3) mg/dl Magnesium 1.7 (1.7-2.4) mg/dl Total Bilirubin 3.8 H (0.2-1.0) mg/dl Direct Bilirubin 0.7 H (0-0.2) mg/dl AST 34 (13-39) U/L ALT 18 (7-52) U/L Alkaline Phosphatase 191 H (34-104) U/L Ammonia 107.0 H (18-72) umol/L Troponin I High Sens 4.7 (0-20) pg/ml Total Protein 6.6 (6.0-8.3) gm/dl Albumin 3.1 L (3.4-5.0) gm/dl Globulin 3.5 (2.5-4.0) gm/dl Albumin/Globulin Ratio 0.9 (0.9-2) Lipase 40 (11-82) U/L Urine Color Urine Appearance (Clear) Urine pH (4.5-7.5) Ur Specific [place] (1.000-1.030) Urine Protein (Negative) Urine Glucose (UA) (Negative) Urine Ketones (Negative) Urine Blood (Negative) Urine Nitrite (Negative) Urine Bilirubin (Negative) Urine Urobilinogen (Negative) Ur Leukocyte Esterase (Negative) Urine WBC (Auto) (0-5) /hpf Urine RBC (Auto) (0-4) /hpf U Hyaline Cast (Auto) (0-5) /lpf U Epithel Cells (Auto) (0-5) /lpf Urine Bacteria (Auto) (Negative) 09/21/23 09/21/23 09/21/23 Range/Units 17:00 17:00 19:05 WBC (4.8-10.8) K/ul RBC (4.70-6.10) M/uL Hgb (14.0-18.0) g/dl Hct (42.0-52.0) % MCV (80.0-100.0) fL MCH (25.0-34.0) pg MCHC (32.0-36.0) g/dL RDW Std Deviation (36.4-46.3) fL RDW Coeff of [place] (11.5-14.5) % Plt Count (130-400) K/uL MPV (9.4-12.4) fL Immature Gran % (Auto) % Neut % (Auto) % Lymph % (Auto) % [place] % (Auto) % Eos % (Auto) % Baso % (Auto) % Neut # (Auto) (1.40-6.50) K/uL Lymph # (Auto) (1.20-3.40) K/uL [place] # (Auto) (0.11-0.59) K/uL Eos # (Auto) (0.00-0.50) K/uL Baso # (Auto) (0.00-0.20) K/uL Immature Gran # (Auto) (0.01-0.20) K/uL PT 12.8 H (9.0-12.0) Seconds INR 1.2 H (0.9-1.1) APTT 30.2 (21.0-31.0) Seconds PTT Ratio 1.1 Sodium (136-145) mmol/L Potassium (3.5-5.1) mmol/L Chloride (98-107) mmol/L Carbon Dioxide (21-32) mmol/L Anion Gap (3-11) BUN (6-23) mg/dl Creatinine (0.6-1.4) mg/dl Est Cr Clr Drug Dosing ml/min Est GFR ( Amer) ml/min Est GFR (Non-Af Amer) ml/min BUN/Creatinine Ratio (10-20) Glucose (70-99(Fasting)) mg/dl Calcium (8.6-10.3) mg/dl Magnesium (1.7-2.4) mg/dl Total Bilirubin (0.2-1.0) mg/dl Direct Bilirubin (0-0.2) mg/dl AST (13-39) U/L ALT (7-52) U/L Alkaline Phosphatase (34-104) U/L Ammonia (18-72) umol/L Troponin I High Sens Cancelled (0-20) pg/ml Total Protein (6.0-8.3) gm/dl Albumin (3.4-5.0) gm/dl Globulin (2.5-4.0) gm/dl Albumin/Globulin Ratio (0.9-2) Lipase (11-82) U/L Urine Color [place] Urine Appearance Clear (Clear) Urine pH 5.0 (4.5-7.5) Ur Specific [place] 1.011 (1.000-1.030) Urine Protein Negative (Negative) Urine Glucose (UA) Negative (Negative) Urine Ketones Negative (Negative) Urine Blood 3+ H (Negative) Urine Nitrite Negative (Negative) Urine Bilirubin Negative (Negative) Urine Urobilinogen Negative (Negative) Ur Leukocyte Esterase Negative (Negative) Urine WBC (Auto) 1-5 (0-5) /hpf Urine RBC (Auto) >30 H (0-4) /hpf U Hyaline Cast (Auto) 0 (0-5) /lpf U Epithel Cells (Auto) 0-5 (0-5) /lpf Urine Bacteria (Auto) Negative (Negative) Administered Medications Discontinued Medications Sodium Chloride (Nss) 500 mls @ 999 mls/hr IV .Q31M ONE Stop: 09/21/23 19:33 Last Admin: 09/21/23 20:09 Dose: 999 mls/hr Documented By: LORNE Lactulose (Lactulose Syrup 30 Gm/45 Ml Udp) 30 gm PO NOW STA Stop: 09/21/23 18:55 Last Admin: 09/21/23 20:09 Dose: 30 gm Documented By: LORNE Ondansetron HCl (Ondansetron Inj 2 Mg/Ml 2 Ml Vial) 4 mg IV NOW STA Stop: 09/21/23 16:53 Last Admin: 09/21/23 17:23 Dose: 4 mg Documented By: LORNE Imaging Data Attestation: I personally reviewed and interpreted this imaging study as follows: My Impression: 1 view chest x-ray was obtained in the emergency department. My interpretation is no free air or definite infiltrate, final report below. CT of the brain was obtained in the emergency department. My interpretation is no intracranial hemorrhage or mass effect, final report below. Radiologist's Impression: Chest X-Ray 09/21/23 16:52 XR chest 1V portable CLINICAL HISTORY: dizziness COMPARISON STUDY: Chest radiograph August 27, 2023. FINDINGS: Lung volumes are normal. Lungs are clear. There is no pneumothorax or pleural effusion. Cardiac size is stable. Mediastinal contours are normal. There is no evidence for pulmonary edema. IMPRESSION: No acute cardiopulmonary findings. No change in appearance of the chest. ACT 112: Negative or not required by law. Electronically signed by: Elan Alexander M.D. 09/21/2023 5:[address] 09/21/23 16:52 CT OF THE HEAD WITHOUT CONTRAST CLINICAL HISTORY: vertigo COMPARISON STUDY: Head CT June 25, 2023. CT DOSE: 703.85 mGy.cm TECHNIQUE: Helical axial images of the head were obtained without IV contrast. Automated exposure control was utilized for the study. A dose lowering technique was utilized adhering to the principles of ALARA. FINDINGS: No acute intracranial hemorrhage, midline shift or mass effect is p resent. The ventricular system is unremarkable. The basal cisterns are patent. No extra-axial collections are present. There are no findings to suggest acute dural sinus thrombosis or acute territorial infarct. White matter hypodensities are unchanged and favor small vessel disease. There is mild polypoid mucosal thickening of the left maxillary sinus. There is no calvarial fracture. IMPRESSION: No acute intracranial findings. No change in appearance of the brain. ACT 112: Negative or not required by law. Electronically signed by: Elan Alexander M.D. 09/21/2023 5:26 PM Discharge Plan Visit Data Chief Complaint: GI Assessment Stated Complaint: NAUSEA, DIZZINESS, VOMITING ED Provider: Jermain,Salvador R Discharge Problem: Acute hepatic encephalopathy, Ataxia, Pancytopenia, Hyperbilirubinemia Patient Disposition: Being Evaluated by Hospitalist Forms Stand Alone Forms: My [facility] Prescriptions Prescriptions: No Action citalopram [Celexa] 10 mg tablet 10 mg PO QAM allopurinol 100 mg Tablet 200 mg PO QAM furosemide [Lasix] 20 mg Tablet 40 mg PO QAM triamcinolone acetonide 0.1 % cream 1 applic TOPICAL BID PRN (Reason: PSORIATIC LESIONS WHEN NEEDED) acetaminophen [Tylenol] 325 mg Tablet 650 mg PO Q8H PRN (Reason: Pain) pantoprazole 40 mg tablet,delayed release (DR/EC) 40 mg PO BID 90 Days Qty: 180 0RF zinc acetate 50 mg (zinc) Capsule 50 mg PO QAM Rx Instructions: unable to verify with [facility] pharmacist ferrous sulfate [iron] 325 mg (65 mg iron) Tablet 325 mg PO QAM acetylcysteine 600 mg Capsule 600 mg PO QAM Xifaxan 550 mg tablet 550 mg PO BID Men's 50 Plus Multivitamin 400-20-370 mcg Tablet 1 tab PO DAILY Probiotic 5 billion cell Capsule, Sprinkle 1 cap PO QAM Rx Instructions: unable to verify with [facility] pharmacist lactulose [Kristalose] 10 gram packet 10 g PO BID Rx Instructions: 90 ds back in january finasteride 5 mg Tablet 5 mg PO QAM insulin glargine [Lantus U-100 Insulin] 100 unit/mL solution 7 unit subcut QDD oxycodone 5 mg tablet 5 mg PO Q6H PRN (Reason: pain) Qty: 12 0RF baclofen 5 mg Tablet 5 mg PO AMPM Referrals Referrals: Francisco Cisse MD [Primary Care Provider] -
--- NOTE | 2023-09-21 17:14 | XRay Report ---
XR chest 1V portable CLINICAL HISTORY: dizziness COMPARISON STUDY: Chest radiograph August 27, 2023. FINDINGS: Lung volumes are normal. Lungs are clear. There is no pneumothorax or pleural effusion. Car diac size is stable. Mediastinal contours are normal. There is no evidence for pulmonary edema. IMPRESSION: No acute cardiopulmonary findings. No change in appearance of the chest. ACT 112: Negative or not required by law. Electronically signed by: Elan Alexander M.D. 09/21/2023 5:12 PM
[2023-09-21 17:16] LABS: Basophils # (auto) 0.02 K/uL (0.00-0.20); Basophils % (auto) 0.7 %; Eosinophils # (auto) 0.16 K/uL (0.00-0.50); Eosinophils % (auto) 5.7 %; Hematocrit (blood only) 25.2 % (42.0-52.0); Hemoglobin 8.4 g/dl (14.0-18.0); Immature Granulocytes # (auto) 0.02 K/uL (0.01-0.20); Immature Granulocytes % (auto) 0.7 %; Lymphocytes # (auto) 0.56 K/uL (1.20-3.40); Lymphocytes % (auto) 19.9 %; Mean Corpuscular Hemoglobin 32.7 pg (25.0-34.0); Mean Corpuscular Hgb Conc 33.3 g/dL (32.0-36.0); Mean Corpuscular Volume 98.1 fL (80.0-100.0); Mean Platelet Volume 12.9 fL (9.4-12.4); Monocytes % (auto) 7.1 %; Neutrophils # (auto) 1.85 K/uL (1.40-6.50); Neutrophils % (auto) 65.9 %; Platelet Count 86 K/uL (130-400); RDW Coefficient of Variation 16.4 % (11.5-14.5); RDW Standard Deviation 57.6 fL (36.4-46.3); Red Blood Count 2.57 M/uL (4.70-6.10); White Blood Count 2.81 K/ul (4.8-10.8)
--- NOTE | 2023-09-21 17:28 | CT Scan Report ---
CT OF THE HEAD WITHOUT CONTRAST CLINICAL HISTORY: vertigo COMPARISON STUDY: Head CT June 25, 2023. CT DOSE: 703.85 mGy.cm TECHNIQUE: Helical axial images of the head were obtained without IV contrast. Automated exposure con trol was utilized for the study. A dose lowering technique was utilized adhering to the principles o f ALARA. FINDINGS: No acute intracranial hemorrhage, midline shift or mass effect is present. The ventricular system is unremarkable. The basal cisterns are patent. No extra-axial collections are present. There are no findings to suggest acute dural sinus thrombosis or acute territorial infarct. White matter hy podensities are unchanged and favor small vessel disease. There is mild polypoid mucosal thickening o f the left maxillary sinus. There is no calvarial fracture. IMPRESSION: No acute intracranial findings. No change in appearance of the brain. ACT 112: Negative or not required by law. Electronically signed by: Elan Alexander M.D. 09/21/2023 5:26 PM
[2023-09-21 17:33] LABS: Albumin Globulin Ratio 0.9 (0.9-2); Albumin Level 3.1 gm/dl (3.4-5.0); BUN Creatinine Ratio 24.5 (10-20); Bilirubin Direct 0.7 mg/dl (0-0.2); Bilirubin,Total 3.8 mg/dl (0.2-1.0); Calcium 8.6 mg/dl (8.6-10.3); Creatinine Clr Calc Pharmacy 76.1 ml/min; Est GFR (African American) 84.1 ml/min; Est GFR (Non-African American) 72.6 ml/min; Globulin 3.5 gm/dl (2.5-4.0); Total Protein 6.6 gm/dl (6.0-8.3)
[2023-09-21 17:39] LABS: Troponin I High Sensitivity 4.7 pg/ml (0-20)
[2023-09-21 17:44] LABS: INR 1.2 (0.9-1.1); Partial Thromboplastin Ratio 1.1; Partial Thromboplastin Time 30.2 Seconds (21.0-31.0); Prothrombin Time 12.8 Seconds (9.0-12.0)
[2023-09-21] MEDS ORDERED: LACTULOSE SYRUP 30 GM/45 ML UDP PO STA (18:54)
[2023-09-21] MEDS ORDERED: SODIUM CHLORIDE 0.9% 500 ML IV ONE (19:03)
[2023-09-21 19:36] LABS: Appearance Urine Clear (Clear); Bacteria Urine Automated Negative (Negative); Bilirubin Urine Negative (Negative); Blood Urine 3+ (Negative); Cast Urine Automated 0 /lpf (0-5); Color Urine Orange; Epithelial Cell Urine Auto 0-5 /lpf (0-5); Glucose Urine UA Negative (Negative); Ketones Urine Negative (Negative); Leukocyte Esterase Urine Negative (Negative); Nitrite Urine Negative (Negative); Protein Urine Negative (Negative); RBC Urine Automated >30 /hpf (0-4); Specific Gravity Urine 1.011 (1.000-1.030); Urobilinogen Urine Negative (Negative)
[2023-09-21 19:48] LABS: Magnesium 1.7 mg/dl (1.7-2.4)
--- NOTE | 2023-09-21 20:57 | History & Physical Report ---
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, hx hepatocellular carcinoma status post IR embolization/portal vein thrombus Recent increase in Cymbalta dose for thoracic fracture restrictive lung disease as per records/pulmonary hypertension, stable lung status DM2 insulin requiring, well controlled as of recent hemoglobin A1c of 4.07 August 2023 chronic pancytopenia (baseline hemoglobin 8) BPH/prostate cancer status post radiation, OBS Medical telemetry Facilitate lactulose and rifaximin Patient counseled regarding need to comply with lactulose regimen GI consult if without improvement Revert back to Cymbalta 30 mg dose Basal bolus insulin, ISS BG goal 1 10-1 40, carb count coverage PT eval Home in a.m. if ammonia levels improved and with continued clinical improvementnt DVT prophylaxis. SCDs Re: Thrombocytopenia Full code Patient's son requesting updates from providers. Ms. Alex Hale, contact # [phone]. Text document was generated using [employer] voice recognition software. It may contain grammatical or spelling errors. Kindly contact undersigned for clarification of any documentation item in question. History of Present Illness Chief Complaint: Confused and unsteady Primary Care Provider: Francisco Cisse MD History obtained from patient and records. 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 Last confinement last month for UGIB. Patient sustained T12 thoracic fracture secondary to fall 3 months ago. No operative intervention due to patient multiple comorbidities. 2 weeks ago, patient started on Cymbalta for midback pain by outpatient provider. Initial dose of 30 mg well-tolerated and increased to 60 mg the last few days. Patient noted increased unsteadiness and confusion the last 2 days. Admits to erratic compliance with lactulose. No headache, no chest pain, no SOB, no abdominal pain, no obvious bleeding at home as per patient. Patient brought to the ER for evaluation by son. Oral lactulose administered at the ER. Patient currently feels much better. 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 Allergies Allergy/AdvReac Type Severity Reaction Status Date / Time No Known Allergies Allergy Mild Verified 07/24/23 15:13 Home Medications Medication Instructions Recorded Confirmed Type allopurinol 100 mg tablet 200 mg PO BID 05/16/20 09/21/23 History finasteride 5 mg tablet 5 mg PO QAM 11/03/21 09/21/23 History furosemide 20 mg tablet (Lasix) 40 mg PO QAM 11/02/22 09/21/23 History insulin glargine 100 unit/mL 22 unit subcut DAILY 11/05/22 09/21/23 History subcutaneous solution (Lantus U-100 Insulin) acetaminophen 325 mg tablet 650 mg PO Q8H PRN Pain 02/24/23 09/21/23 History (Tylenol) triamcinolone acetonide 0.1 % 1 applic topical BID PRN PSORIATIC 02/24/23 09/21/23 History topical cream LESIONS WHEN NEEDED pantoprazole 40 mg tablet,delayed 40 mg PO BID 90 days #180 tabs 02/28/23 09/21/23 Rx release Lactobacil.acidophilus-Bifido.animalis 1 cap PO QAM 05/17/23 09/21/23 History 5 billion cell sprinkle capsule (Probiotic) acetylcysteine 600 mg capsule 600 mg PO QAM 05/17/23 09/21/23 History ferrous sulfate 325 mg (65 mg 325 mg PO QAM 05/17/23 09/21/23 History iron) tablet (iron) otnluqineypn-idd-evhlg acid-vit 1 tab PO DAILY 05/17/23 09/21/23 History K-lycop 400 mcg-20 mcg-370 mcg tablet (Men's 50 Plus Multivitamin) rifaximin 550 mg tablet (Xifaxan) 550 mg PO BID 05/17/23 09/21/23 History baclofen 5 mg tablet 5 mg PO AMPM 07/24/23 08/27/23 History lactulose 10 gram oral packet 10 g PO BID 08/08/23 09/21/23 History (Kristalose) duloxetine 60 mg capsule,delayed 60 mg PO DAILY 09/21/23 09/21/23 History release (Cymbalta) metoclopramide HCl 5 mg tablet 5 mg PO TID PRN Nausea 09/21/23 09/21/23 History mirtazapine 30 mg tablet (Remeron) 30 mg PO HS 09/21/23 09/21/23 History Past Med/Surg History Medical History Anemia of chronic disease under surveillance Anxiety and depression CKD (chronic kidney disease) stage 3, GFR 30-59 ml/min Encounter for pre-operative examination Esophageal varices EGD 05/22/23 ([facility]): Grade 1 varices in distal esophagus without high risk stigmata GAVE (gastric antral vascular ectasia) GERD (gastroesophageal reflux disease) Gout No current issues Hepatocellular carcinoma History of blood transfusion 11/2022 History of panic attacks History of recent hospitalization 06/2023 [facility] hepatic encephalopathy Hypertension Hx 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 Liver spots Under surveillance, stable per patient Prostate cancer Hx radiation Psoriasis Spinal fracture of T12 vertebra Upper GI bleed Hx Surgical History History of abdominal paracentesis Multiple, most recent 01/2023 History of colonoscopy with polypectomy History of esophagogastroduodenoscopy (EGD) Most recent 05/2023 [facility] History of left cataract surgery History of prostate biopsy malignant History of right cataract surgery History of tonsillectomy and adenoidectomy S/P TIPS (transjugular intrahepatic portosystemic shunt) Family History Father , "3/4 liver gone due to drinking" Colorectal cancer, Onset Age: 63 Mother Lung cancer Daughter Cancer cervical and thyroid cancers Ovarian cancer Other No family history of adverse response to anesthesia 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 Smoking Status: Never smoker Second Hand Exposure: No; Do You Dip or Chew Tobacco: No; Hx Alcohol Use: No Hx Substance Use: No Preferred Language: Malagasy Communication Ability: Effective Visual Impairment: No Limitations Hearing Ability: Normal Lacquer Mixer Required: No Beliefs That Will Affect Care: None marital status: Current Living Situation: Alone Current Living Situation Comment: is currently in [facility] s/p fall 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 How many Children do You have: 6 How many Children do You have Comment: one , eldest daughter in her sleep from seizure disorder Other Information That Helps Us Care for You: No Feels Safe at Home: Yes Safety Concerns: Feels Safe At This Time Childhood Exposure to Second-Hand Smoke: Yes Diet Comment: "I watch my sugar, average fasting is 140 mg/dl" caffeine: Yes (cola, sugar free, decaf) during the past year weight has: remained stable Dental Care, Regularly: No Physical Activity Frequency: Does not Exercise Seatbelt Use: always Sunscreen Use: Yes Assistive Devices: Walker Review of Systems Review of Systems: As per HPI, all other systems reviewed and negative Physical Exam Physical Exam: GENERAL: Coherent, comfortable, pleasant, no respiratory distress SKIN: Pallor, warm HEENT: Alopecia, pale palpebral conjunctivae, no ptosis, dry buccal mucosa NECK : Supple, no tenderness CHEST : Decreased breath sounds, no tenderness HEART : RRR, no obvious murmurs ABDOMEN: Some distention, nontender BACK : Mid back tenderness EXTREMITIES : Minimal LE swelling, no LE tenderness, no other conspicuous deformities noted NEUROLOGIC : Coherent, no facial asymmetry, gait and stance not assessed Results & Data Results & Data Vital Signs (Past 12 Hours) Vital Signs Temp Pulse Pulse Resp BP BP Pulse Ox 09/21/23 20:46 65 09/21/23 20:00 63 22 162/79 H 97 09/21/23 19:12 61 15 133/73 98 09/21/23 17:00 63 17 146/69 H 99 09/21/23 17:08 64 09/21/23 17:01 63 20 98 09/21/23 16:39 36.5 C 67 20 145/73 H 99 O2 Del Method 09/21/23 20:46 09/21/23 20:00 Room Air 09/21/23 19:12 Room Air 09/21/23 17:00 Room Air 09/21/23 17:08 09/21/23 17:01 Room Air 09/21/23 16:39 Room Air Laboratory Results Laboratory Results WBC 2.81 K/ul (4.8-10.8) L 09/21/23 17:00 RBC 2.57 M/uL (4.70-6.10) L 09/21/23 17:00 Hgb 8.4 g/dl (14.0-18.0) L 09/21/23 17:00 Hct 25.2 % (42.0-52.0) L 09/21/23 17:00 MCV 98.1 fL (80.0-100.0) 09/21/23 17:00 MCH 32.7 pg (25.0-34.0) 09/21/23 17:00 MCHC 33.3 g/dL (32.0-36.0) 09/21/23 17:00 RDW Std Deviation 57.6 fL (36.4-46.3) H 09/21/23 17:00 RDW Coeff of [place] 16.4 % (11.5-14.5) H 09/21/23 17:00 Plt Count 86 K/uL (130-400) L 09/21/23 17:00 MPV 12.9 fL (9.4-12.4) H 09/21/23 17:00 Immature Gran % (Auto) 0.7 % 09/21/23 17:00 Neut % (Auto) 65.9 % 09/21/23 17:00 Lymph % (Auto) 19.9 % 09/21/23 17:00 Edgar % (Auto) 7.1 % 09/21/23 17:00 Eos % (Auto) 5.7 % 09/21/23 17:00 Baso % (Auto) 0.7 % 09/21/23 17:00 Neut # (Auto) 1.85 K/uL (1.40-6.50) 09/21/23 17:00 Lymph # (Auto) 0.56 K/uL (1.20-3.40) L 09/21/23 17:00 Edgar # (Auto) 0.20 K/uL (0.11-0.59) 09/21/23 17:00 Eos # (Auto) 0.16 K/uL (0.00-0.50) 09/21/23 17:00 Baso # (Auto) 0.02 K/uL (0.00-0.20) 09/21/23 17:00 Immature Gran # (Auto) 0.02 K/uL (0.01-0.20) 09/21/23 17:00 PT 12.8 Seconds (9.0-12.0) H 09/21/23 17:00 INR 1.2 (0.9-1.1) H 09/21/23 17:00 APTT 30.2 Seconds (21.0-31.0) 09/21/23 17:00 PTT Ratio 1.1 09/21/23 17:00 Sodium 137 mmol/L (136-145) 09/21/23 17:00 Potassium 4.0 mmol/L (3.5-5.1) 09/21/23 17:00 Chloride 112 mmol/L (98-107) H 09/21/23 17:00 Carbon Dioxide 22 mmol/L (21-32) 09/21/23 17:00 Anion Gap 3 (3-11) 09/21/23 17:00 BUN 25 mg/dl (6-23) H 09/21/23 17:00 Creatinine 1.02 mg/dl (0.6-1.4) 09/21/23 17:00 Est Cr Clr Drug Dosing 76.1 ml/min 09/21/23 17:00 Est GFR ( Amer) 84.1 ml/min 09/21/23 17:00 Est GFR (Non-Af Amer) 72.6 ml/min 09/21/23 17:00 BUN/Creatinine Ratio 24.5 (10-20) H 09/21/23 17:00 Glucose 260 mg/dl (70-99(Fasting)) H 09/21/23 17:00 Calcium 8.6 mg/dl (8.6-10.3) 09/21/23 17:00 Magnesium 1.7 mg/dl (1.7-2.4) 09/21/23 17:00 Total Bilirubin 3.8 mg/dl (0.2-1.0) H 09/21/23 17:00 Direct Bilirubin 0.7 mg/dl (0-0.2) H 09/21/23 17:00 AST 34 U/L (13-39) 09/21/23 17:00 ALT 18 U/L (7-52) 09/21/23 17:00 Alkaline Phosphatase 191 U/L (34-104) H 09/21/23 17:00 Ammonia 107.0 umol/L (18-72) H 09/21/23 17:00 Troponin I High Sens 4.7 pg/ml (0-20) 09/21/23 17:00 Troponin I High Sens Cancelled 09/21/23 17:00 Total Protein 6.6 gm/dl (6.0-8.3) 09/21/23 17:00 Albumin 3.1 gm/dl (3.4-5.0) L 09/21/23 17:00 Globulin 3.5 gm/dl (2.5-4.0) 09/21/23 17:00 Albumin/Globulin Ratio 0.9 (0.9-2) 09/21/23 17:00 Lipase 40 U/L (11-82) 09/21/23 17:00 Urine Color [place] 09/21/23 19:05 Urine Appearance Clear (Clear) 09/21/23 19:05 Urine pH 5.0 (4.5-7.5) 09/21/23 19:05 Ur Specific [place] 1.011 (1.000-1.030) 09/21/23 19:05 Urine Protein Negative (Negative) 09/21/23 19:05 Urine Glucose (UA) Negative (Negative) 09/21/23 19:05 Urine Ketones Negative (Negative) 09/21/23 19:05 Urine Blood 3+ (Negative) H 09/21/23 19:05 Urine Nitrite Negative (Negative) 09/21/23 19:05 Urine Bilirubin Negative (Negative) 09/21/23 19:05 Urine Urobilinogen Negative (Negative) 09/21/23 19:05 Ur Leukocyte Esterase Negative (Negative) 09/21/23 19:05 Urine WBC (Auto) 1-5 /hpf (0-5) 09/21/23 19:05 Urine RBC (Auto) >30 /hpf (0-4) H 09/21/23 19:05 U Hyaline Cast (Auto) 0 /lpf (0-5) 09/21/23 19:05 U Epithel Cells (Auto) 0-5 /lpf (0-5) 09/21/23 19:05 Urine Bacteria (Auto) Negative (Negative) 09/21/23 19:05 Impressions Chest X-Ray 09/21/23 16:52 XR chest 1V portable CLINICAL HISTORY: dizziness COMPARISON STUDY: Chest radiograph August 27, 2023. FINDINGS: Lung volumes are normal. Lungs are clear. There is no pneumothorax or pleural effusion. Cardiac size is stable. Mediastinal contours are normal. There is no evidence for pulmonary edema. IMPRESSION: No acute cardiopulmonary findings. No change in appearance of the chest. ACT 112: Negative or not required by law. Electronically signed by: Elan Alexander M.D. 09/21/2023 5:[address] 09/21/23 16:52 CT OF THE HEAD WITHOUT CONTRAST CLINICAL HISTORY: vertigo COMPARISON STUDY: Head CT June 25, 2023. CT DOSE: 703.85 mGy.cm TECHNIQUE: Helical axial images of the head were obtained without IV contrast. Automated exposure control was utilized for the study. A dose lowering technique was utilized adhering to the principles of ALARA. FINDINGS: No acute intracranial hemorrhage, midline shift or mass effect is present. The ventricular system is unremarkable. The basal cisterns are patent. No extra-axial collections are present. There are no findings to suggest acute dural sinus thrombosis or acute territorial infarct. White matter hypodensities are unchanged and favor small vessel disease. There is mild polypoid mucosal thickening of the left maxillary sinus. There is no calvarial fracture. IMPRESSION: No acute intracranial findings. No change in appearance of the brain. ACT 112: Negative or not required by law. Electronically signed by: Elan Alexander M.D. 09/21/2023 5:26 PM Diagnostic Findings EKG as per my interpretation :Rate 60, NSR, LAD, LAFB, septal infarct, no ischemia, PVCs
[2023-09-21] MEDS ORDERED: ACETAMINOPHEN 500 MG TAB PO PRN (21:03)
[2023-09-21] MEDS ORDERED: traMADol HCL 50 MG TABLET PO PRN (21:03)
[2023-09-21] MEDS ORDERED: PROMETHAZINE HCL 6.25 MG in SODIUM CHLORIDE 0.9% 50 ML IV PRN (21:03)
[2023-09-21] MEDS ORDERED: rifAXIMin 550 MG TABLET PO STA (21:03)
[2023-09-21] MEDS ORDERED: MAGNESIUM SULFATE / D5W 1 GM/100 ML BAG IV STA (21:19)
[2023-09-22] MEDS ORDERED: METOCLOPRAMIDE HCL 5 MG TABLET PO PRN (00:32)
[2023-09-22] MEDS ORDERED: GLUCAGON FOR INJ 1 MG VIAL IM PRN (01:30)
[2023-09-22] MEDS ORDERED: GLUCOSE 40% GEL 15 GM TUBE PO PRN ×2 (01:30→01:50)
[2023-09-22] MEDS ORDERED: CARBOHYDRATES FOR HYPOGLYCEMIA PO PRN ×2 (01:30→01:50)
[2023-09-22] MEDS ORDERED: DEXTROSE 50% 50 ML SYRINGE IV PRN ×2 (01:30→01:50)
[2023-09-22] MEDS ORDERED: GLUCOSE 10 TAB/TUBE PO PRN ×2 (01:30→01:50)
[2023-09-22] MEDS ORDERED: GLUCAGON FOR INJ 1 MG VIAL SQ PRN (01:50)
[2023-09-22] MEDS: PANTOprazole 40 MG TAB PO SCH ×3 (01:57→21:06)
[2023-09-22] MEDS: INSULIN ASPART PER UNIT CHARGE SC SCH ×5 (02:01→21:03)
[2023-09-22] MEDS: LANTUS PER UNIT CHARGE SQ SCH ×2 (02:02→21:03)
[2023-09-22 05:25] LABS: Albumin Level 2.9 gm/dl (3.4-5.0); BUN Creatinine Ratio 20.6 (10-20); Bilirubin,Total 4.8 mg/dl (0.2-1.0); Calcium 8.4 mg/dl (8.6-10.3); Creatinine Clr Calc Pharmacy 63.5 ml/min; Est GFR (African American) 79.4 ml/min; Est GFR (Non-African American) 68.5 ml/min; Potassium 3.5 mmol/L (3.5-5.1); Total Protein 5.9 gm/dl (6.0-8.3)
[2023-09-22 06:15] LABS: Basophils # (auto) 0.02 K/uL (0.00-0.20); Basophils % (auto) 0.7 %; Eosinophils # (auto) 0.27 K/uL (0.00-0.50); Eosinophils % (auto) 9.5 %; Hematocrit (blood only) 23.4 % (42.0-52.0); Hemoglobin 7.8 g/dl (14.0-18.0); Immature Granulocytes # (auto) 0.01 K/uL (0.01-0.20); Immature Granulocytes % (auto) 0.4 %; Lymphocytes # (auto) 0.66 K/uL (1.20-3.40); Lymphocytes % (auto) 23.3 %; Mean Corpuscular Hemoglobin 32.8 pg (25.0-34.0); Mean Corpuscular Hgb Conc 33.3 g/dL (32.0-36.0); Mean Corpuscular Volume 98.3 fL (80.0-100.0); Mean Platelet Volume 13.3 fL (9.4-12.4); Monocytes # (auto) 0.26 K/uL (0.11-0.59); Monocytes % (auto) 9.2 %; Neutrophils # (auto) 1.61 K/uL (1.40-6.50); Neutrophils % (auto) 56.9 %; Platelet Count 64 K/uL (130-400); RDW Coefficient of Variation 16.4 % (11.5-14.5); RDW Standard Deviation 58.5 fL (36.4-46.3); Red Blood Count 2.38 M/uL (4.70-6.10); Tear Drop Cells 1+; White Blood Count 2.83 K/ul (4.8-10.8)
[2023-09-22] MEDS: allopurinoL 100 MG TAB PO SCH ×2 (08:11→21:05)
[2023-09-22] MEDS: CEROVITE ADV FORMULA TAB PO SCH (08:11)
[2023-09-22] MEDS: ADVANCED PROBIOTIC 1250 MG CAPSULE PO SCH (08:11)
[2023-09-22] MEDS: FERROUS SULFATE 325 MG TAB PO SCH (08:11)
[2023-09-22] MEDS: DULoxetine HCL 30 MG CAP PO SCH (08:11)
[2023-09-22] MEDS: rifAXIMin 550 MG TABLET PO SCH ×2 (08:11→21:04)
[2023-09-22] MEDS: FINASTERIDE 5 MG TAB PO SCH (08:11)
[2023-09-22] MEDS: LACTULOSE SYRUP 20 GM/30 ML UDC PO SCH ×3 (08:11→21:04)
[2023-09-22] MEDS: LIDOCAINE 5% 1 PATCH TD SCH (08:12)
--- NOTE | 2023-09-22 13:29 | Hospitalist Progress Note ---
Date of Service September 22, 2023 Assessment & Plan (1) Encephalopathy: Plan: Hepatic encephalopathy Secondary to medication noncompliance H/O FOFANA Cirrhosis S/P TIPS H/O Hepatocellular Carcinoma S/P IR embolization/portal vein thrombus --CT Head:No acute intracranial findings. No change in appearance of the brain. 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 Resume home diuretic as able Pancytopenia Secondary to above H/O GAVE, esophageal varices, portal hypertensive gastropathy, diverticulosis, radiation proctitis Hb near baseline No acute bleeding issues Monitor CBC Continue Protonix CKD III Monitor renal function Avoid nephrotoxic agents as able DM II Well-controlled Continue insulin per protocol Monitor BGs H/O prostate cancer S/P radiation 2020 BPH Continue Proscar Depression Continue Cymbalta at reduced dose 30 mg daily Monitor and adjust medications as needed Restrictive lung disease Pulmonary hypertension Stable respiratory status DVT Px: SCDs Re: Thrombocytopenia, H/O GI bleed Code Status Full code Disposition PT OT prior to discharge Admission and Anticipated Discharge Date Admission Date: September 21, 2023 Subjective Patient is seen and examined at bedside Mental status seem to be back to baseline States feeling well today Offers no new complaints Patient understands that he needs to titrate lactulose to get good bowel movements Denies any chest pain, dyspnea, dizziness, nausea, vomiting, abdominal pain Review of Systems Review of Systems: All systems reviewed & are unremarkable except as noted in Subjective Physical Exam Physical Exam: Physical Exam: Vitals signs as noted above General Appearance:Moderately built and nourished, Chronic ill appearing, no apparent distress Head: normocephalic, Atraumatic Eyes: normal inspection, EOMI Neck: supple, Trachea midline Respiratory/Chest: Normal breath sounds, CTA, No accessory muscle use Cardiovascular: S1, S2, + murmur Abdomen/GI:Soft, Non tender, mildly distended, Bowel sounds present Extremities/Musculoskeletal:normal inspection, no pedal edema Neurologic/Psych:AAOX3, grossly no focal neurological deficits Skin: normal color, warm,+ psoriasis Results & Data Results & Data Vital Signs (Past 12 Hours) Vital Signs Temp Pulse Pulse Resp BP Pulse Ox Pulse Ox 09/22/23 11:12 37.0 C 87 20 123/60 94 09/22/23 07:46 36.9 C 61 20 109/52 L 97 09/22/23 07:23 64 09/22/23 02:37 61 09/22/23 01:50 36.6 C 60 14 117/46 L 97 09/22/23 01:50 97 O2 Del Method O2 Del Method 09/22/23 11:12 Room Air 09/22/23 07:46 Room Air 09/22/23 07:23 09/22/23 02:37 09/22/23 01:50 Room Air 09/22/23 01:50 Room Air Laboratory Results Short CBC 09/21/23 09/22/23 Range/Units 17:00 04:52 WBC 2.81 L 2.83 L (4.8-10.8) K/ul Hgb 8.4 L 7.8 L (14.0-18.0) g/dl Hct 25.2 L 23.4 L (42.0-52.0) % Plt Count 86 L 64 L (130-400) K/uL BMP 09/21/23 09/22/23 17:00 04:52 Sodium 137 141 Potassium 4.0 3.5 Chloride 112 H 113 H Carbon Dioxide 22 23 BUN 25 H 22 Creatinine 1.02 1.07 Glucose 260 H 118 H Calcium 8.6 8.4 L Liver Function 09/21/23 09/22/23 Range/Units 17:00 04:52 Total Bilirubin 3.8 H 4.8 H (0.2-1.0) mg/dl Direct Bilirubin 0.7 H (0-0.2) mg/dl AST 34 31 (13-39) U/L ALT 18 17 (7-52) U/L Alkaline Phosphatase 191 H 170 H (34-104) U/L Albumin 3.1 L 2.9 L (3.4-5.0) gm/dl Urine 09/21/23 Range/Units 19:05 Urine Color [place] Urine Appearance Clear (Clear) Urine pH 5.0 (4.5-7.5) Ur Specific [place] 1.011 (1.000-1.030) Urine Protein Negative (Negative) Urine Glucose (UA) Negative (Negative)
[2023-09-22] MEDS ORDERED: MIRTAZAPINE TAB 15 MG TAB PO SCH (21:00)
[2023-09-23 05:38] LABS: BUN Creatinine Ratio 17.3 (10-20); Calcium 8.3 mg/dl (8.6-10.3); Creatinine Clr Calc Pharmacy 51.1 ml/min; Est GFR (Non-African American) 52.7 ml/min; Magnesium 1.7 mg/dl (1.7-2.4); Potassium 3.9 mmol/L (3.5-5.1)
[2023-09-23 05:46] LABS: Hematocrit (blood only) 22.4 % (42.0-52.0); Hemoglobin 7.6 g/dl (14.0-18.0)
[2023-09-23] MEDS: LACTULOSE SYRUP 20 GM/30 ML UDC PO SCH ×2 (07:56→12:31)
[2023-09-23] MEDS: LIDOCAINE 5% 1 PATCH TD SCH (07:56)
[2023-09-23] MEDS: FERROUS SULFATE 325 MG TAB PO SCH (07:57)
[2023-09-23] MEDS: ADVANCED PROBIOTIC 1250 MG CAPSULE PO SCH (07:57)
[2023-09-23] MEDS: CEROVITE ADV FORMULA TAB PO SCH (07:57)
[2023-09-23] MEDS: allopurinoL 100 MG TAB PO SCH (07:57)
[2023-09-23] MEDS: DULoxetine HCL 30 MG CAP PO SCH (07:57)
[2023-09-23] MEDS: FINASTERIDE 5 MG TAB PO SCH (07:57)
[2023-09-23] MEDS: rifAXIMin 550 MG TABLET PO SCH (07:57)
[2023-09-23] MEDS: PANTOprazole 40 MG TAB PO SCH (07:57)
[2023-09-23] MEDS: INSULIN ASPART PER UNIT CHARGE SC SCH ×2 (08:39→12:30)
[2023-09-23 11:47] VITALS: RESP 17; TEMP 97.9; O2SAT 94
--- NOTE | 2023-09-23 12:49 | Hospitalist Progress Note ---
Date of Service September 23, 2023 Assessment & Plan (1) Encephalopathy: Plan: Hepatic encephalopathy Secondary to medication noncompliance H/O FOFANA Cirrhosis S/P TIPS H/O Hepatocellular Carcinoma S/P IR embolization/portal vein thrombus --CT Head:No acute intracranial findings. No change in appearance of the brain. --Ammonia 107>36 --Titrate lactulose to have 3-4 good bowel movements per day Mental status back to baseline Continue rifaximin Consider titration of Cymbalta dose as needed Counseled on medication compliance--understands and agrees to be compliant Monitor volume status Resume home diuretics today Plan to discharge home today Pancytopenia Secondary to above H/O GAVE, esophageal varices, portal hypertensive gastropathy, diverticulosis, radiation proctitis Hb near baseline No acute bleeding issues Monitor CBC Continue Protonix Follows with hematology as outpatient Advised to get CBC in 1 week to determine need for transfusion CKD III Monitor renal function Avoid nephrotoxic agents as able DM II Well-controlled Continue insulin per protocol Monitor BGs H/O prostate cancer S/P radiation 2020 BPH Continue Proscar Depression Continue Cymbalta at reduced dose 30 mg daily Monitor and adjust medications as needed Restrictive lung disease Pulmonary hypertension Stable respiratory status DVT Px: SCDs Re: Thrombocytopenia, H/O GI bleed Code Status Full code Disposition Home Admission and Anticipated Discharge Date Admission Date: September 21, 2023 Subjective Patient is seen and examined at bedside Offers no new complaints Denies any bleeding issues Oriented during my encounter Denies any chest pain, dyspnea, dizziness, nausea, vomiting, abdominal pain Plan to be discharged home today Review of Systems Review of Systems: All systems reviewed & are unremarkable except as noted in Subjective Physical Exam Physical Exam: Physical Exam: Vitals signs as noted above General Appearance:Moderately built and nourished, Chronic ill appearing, no apparent distress Head: normocephalic, Atraumatic Eyes: normal inspection, EOMI Neck: supple, Trachea midline Respiratory/Chest: Normal breath sounds, CTA, No accessory muscle use Cardiovascular: S1, S2, + murmur Abdomen/GI:Soft, Non tender, mildly distended, Bowel sounds present Extremities/Musculoskeletal:normal inspection, no pedal edema Neurologic/Psych:AAOX3, grossly no focal neurological deficits Skin: normal color, warm,+ psoriasis Results & Data Results & Data Vital Signs (Past 12 Hours) Vital Signs Temp Pulse Resp BP BP Pulse Ox O2 Del Method 09/23/23 11:47 36.6 C 70 17 118/64 94 Room Air 09/23/23 08:28 36.5 C 59 L 18 107/63 95 Room Air 09/23/23 04:38 36.8 C 66 18 125/65 95 Room Air 09/23/23 01:34 O2 Del Method 09/23/23 11:47 09/23/23 08:28 09/23/23 04:38 09/23/23 01:34 Room Air Laboratory Results Short CBC 09/23/23 Range/Units 04:53 Hgb 7.6 L (14.0-18.0) g/dl Hct 22.4 L (42.0-52.0) % BMP 09/23/23 04:53 Sodium 141 Potassium 3.9 Chloride 113 H Carbon Dioxide 23 BUN 23 Creatinine 1.33 Glucose 120 H Calcium 8.3 L
--- NOTE | 2023-09-23 13:02 | Discharge Summary ---
Date of Service September 23, 2023 Admission HPI Per Admitting Provider History obtained from patient and records. 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 Last confinement last month for UGIB. Patient sustained T12 thoracic fracture secondary to fall 3 months ago. No operative intervention due to patient multiple comorbidities. 2 weeks ago, patient started on Cymbalta for midback pain by outpatient provider. Initial dose of 30 mg well-tolerated and increased to 60 mg the last few days. Patient noted increased unsteadiness and confusion the last 2 days. Admits to erratic compliance with lactulose. No headache, no chest pain, no SOB, no abdominal pain, no obvious bleeding at home as per patient. Patient brought to the ER for evaluation by son. Oral lactulose administered at the ER. Patient currently feels much better. 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5 fL (36.4-46.3) H 09/22/23 04:52 RDW Coeff of Violetta 16.4 % (11.5-14.5) H 09/22/23 04:52 Plt Count 64 K/uL (130-400) L 09/22/23 04:52 MPV 13.3 fL (9.4-12.4) H 09/22/23 04:52 Immature Gran % (Auto) 0.4 % 09/22/23 04:52 Neut % (Auto) 56.9 % 09/22/23 04:52 Lymph % (Auto) 23.3 % 09/22/23 04:52 [place] % (Auto) 9.2 % 09/22/23 04:52 Eos % (Auto) 9.5 % 09/22/23 04:52 Baso % (Auto) 0.7 % 09/22/23 04:52 Neut # (Auto) 1.61 K/uL (1.40-6.50) 09/22/23 04:52 Lymph # (Auto) 0.66 K/uL (1.20-3.40) L 09/22/23 04:52 [place] # (Auto) 0.26 K/uL (0.11-0.59) 09/22/23 04:52 Eos # (Auto) 0.27 K/uL (0.00-0.50) 09/22/23 04:52 Baso # (Auto) 0.02 K/uL (0.00-0.20) 09/22/23 04:52 Immature Gran # (Auto) 0.01 K/uL (0.01-0.20) 09/22/23 04:52 Tear Drop Cells 1+ 09/22/23 04:52 PT 12.8 Seconds (9.0-12.0) H 09/21/23 17:00 INR 1.2 (0.9-1.1) H 09/21/23 17:00 APTT 30.2 Seconds (21.0-31.0) 09/21/23 17:00 PTT Ratio 1.1 09/21/23 17:00 Sodium 141 mmol/L (136-145) 09/23/23 04:53 Potassium 3.9 mmol/L (3.5-5.1) 09/23/23 04:53 Chloride 113 mmol/L (98-107) H 09/23/23 04:53 Carbon Dioxide 23 mmol/L (21-32) 09/23/23 04:53 Anion Gap 5 (3-11) 09/23/23 04:53 BUN 23 mg/dl (6-23) 09/23/23 04:53 Creatinine 1.33 mg/dl (0.6-1.4) 09/23/23 04:53 Est Cr Clr Drug Dosing 51.1 ml/min 09/23/23 04:53 Est GFR ( Amer) 61.0 ml/min 09/23/23 04:53 Est GFR (Non-Af Amer) 52.7 ml/min 09/23/23 04:53 BUN/Creatinine Ratio 17.3 (10-20) 09/23/23 04:53 Glucose 120 mg/dl (70-99(Fasting)) H 09/23/23 04:53 POC Glucose 180 mg/dl (70-99) H 09/23/23 12:15 Calcium 8.3 mg/dl (8.6-10.3) L 09/23/23 04:53 Magnesium 1.7 mg/dl (1.7-2.4) 09/23/23 04:53 Total Bilirubin 4.8 mg/dl (0.2-1.0) H 09/22/23 04:52 Direct Bilirubin 0.7 mg/dl (0-0.2) H 09/21/23 17:00 AST 31 U/L (13-39) 09/22/23 04:52 ALT 17 U/L (7-52) 09/22/23 04:52 Alkaline Phosphatase 170 U/L (34-104) H 09/22/23 04:52 Ammonia 36.0 umol/L (18-72) 09/22/23 00:58 Troponin I High Sens 4.7 pg/ml (0-20) 09/21/23 17:00 Troponin I High Sens Cancelled 09/21/23 17:00 Total Protein 5.9 gm/dl (6.0-8.3) L 09/22/23 04:52 Albumin 2.9 gm/dl (3.4-5.0) L 09/22/23 04:52 Globulin 3.0 gm/dl (2.5-4.0) 09/22/23 04:52 Albumin/Globulin Ratio 1.0 (0.9-2) 09/22/23 04:52 Lipase 40 U/L (11-82) 09/21/23 17:00 Urine Color Jack 09/21/23 19:05 Urine Appearance Clear (Clear) 09/21/23 19:05 Urine pH 5.0 (4.5-7.5) 09/21/23 19:05 Ur Specific [place] 1.011 (1.000-1.030) 09/21/23 19:05 Urine Protein Negative (Negative) 09/21/23 19:05 Urine Glucose (UA) Negative (Negative) 09/21/23 19:05 Urine Ketones Negative (Negative) 09/21/23 19:05 Urine Blood 3+ (Negative) H 09/21/23 19:05 Urine Nitrite Negative (Negative) 09/21/23 19:05 Urine Bilirubin Negative (Negative) 09/21/23 19:05 Urine Urobilinogen Negative (Negative) 09/21/23 19:05 Ur Leukocyte Esterase Negative (Negative) 09/21/23 19:05 Urine WBC (Auto) 1-5 /hpf (0-5) 09/21/23 19:05 Urine RBC (Auto) >30 /hpf (0-4) H 09/21/23 19:05 U Hyaline Cast (Auto) 0 /lpf (0-5) 09/21/23 19:05 U Epithel Cells (Auto) 0-5 /lpf (0-5) 09/21/23 19:05 Urine Bacteria (Auto) Negative (Negative) 09/21/23 19:05 Impressions Chest X-Ray 09/21/23 16:52 XR chest 1V portable CLINICAL HISTORY: dizziness COMPARISON STUDY: Chest radiograph August 27, 2023. FINDINGS: Lung volumes are normal. Lungs are clear. There is no pneumothorax or pleural effusion. Cardiac size is stable. Mediastinal contours are normal. There is no evidence for pulmonary edema. IMPRESSION: No acute cardiopulmonary findings. No change in appearance of the chest. ACT 112: Negative or not required by law. Electronically signed by: Elan Alexander M.D. 09/21/2023 5:[address] 09/21/23 16:52 CT OF THE HEAD WITHOUT CONTRAST CLINICAL HISTORY: vertigo COMPARISON STUDY: Head CT June 25, 2023. CT DOSE: 703.85 mGy.cm TECHNIQUE: Helical axial images of the head were obtained without IV contrast. Automated exposure control was utilized for the study. A dose lowering technique was utilized adhering to the principles of ALARA. FINDINGS: No acute intracranial hemorrhage, midline shift or mass effect is present. The ventricular system is unremarkable. The basal cisterns are patent. No extra-axial collections are present. There are no findings to suggest acute dural sinus thrombosis or acute territorial infarct. White matter hypodensities are unchanged and favor small vessel disease. There is mild polypoid mucosal thickening of the left maxillary sinus. There is no calvarial fracture. IMPRESSION: No acute intracranial findings. No change in appearance of the brain. ACT 112: Negative or not required by law. Electronically signed by: Elan Alexander M.D. 09/21/2023 5:26 PM Ordered Studies 09/21/23 16:52 CT head/brain wo con Stat Hospital Course (1) Encephalopathy: Hepatic encephalopathy Secondary to medication noncompliance H/O FOFANA Cirrhosis S/P TIPS H/O Hepatocellular Carcinoma S/P IR embolization/portal vein thrombus --CT Head:No acute intracranial findings. No change in appearance of the brain. --Ammonia 107>36 --Titrate lactulose to have 3-4 good bowel movements per day Mental status back to baseline Continue rifaximin Counseled on medication compliance--understands and agrees to be compliant Monitor volume status Resume home diuretics on discharge Plan to discharge home today Pancytopenia Secondary to above H/O GAVE, esophageal varices, portal hypertensive gastropathy, diverticulosis, radiation proctitis Hb near baseline No acute bleeding issues Monitor CBC Continue Protonix Follows with hematology as outpatient Advised to get CBC in 1 week to determine need for transfusion CKD III Monitor renal function Avoid nephrotoxic agents as able DM II Well-controlled Continue insulin per protocol Monitor BGs H/O prostate cancer S/P radiation 2020 BPH Continue Proscar Depression Continue home dose of Cymbalta Monitor and adjust medications as needed Restrictive lung disease Pulmonary hypertension Stable respiratory status DVT Px: SCDs Re: Thrombocytopenia, H/O GI bleed Code Status Full code Disposition Home Total Time Total Time Spent Total Time Spent (In Minutes): 56 minutes Discharge Plan Discharge Items Patient Disposition: Home - Self-Care Reason For Visit: DIZZINESS Discharge Diagnosis: Hepatic encephalopathy Pancytopenia Activity: Per Instructions section Exercise/Sports: Gradually increase as tolerated Non-emergency contact: Primary Care Provider and Specialist Call non-emergency contact if: you have any medication questions, your symptoms worsen, your pain is concerning for you and you have a fever Follow-up/Referrals: Francisco Cisse MD [Primary Care Provider] - Diet: Carb Consistent or DM2 and Heart Healthy Addtl Attending Provider Instructions: Follow-up with your primary care physician Dr. Cisse in 1 week Follow-up with your denial management representative as advised --Obtain blood test (CBC) in 1 week and follow-up with your denial management representative for further recommendations. --Take lactulose, rifaximin and other medications regularly as prescribed Seek immediate medical attention if your symptoms reoccur or worsen Please take all medications as instructed on discharge list below. Please call if you have any questions or problems. You can reach a [facility] hospitalist on duty at [facility] 24 hours a day by calling [phone] Pending Studies at Discharge: No Stand-Alone Forms: My [facility] [employer], Smoking Cessation Medications and DC Order Prescriptions: Continued allopurinol 100 mg Tablet 200 mg PO BID furosemide [Lasix] 20 mg Tablet 40 mg PO QAM triamcinolone acetonide 0.1 % cream 1 applic TOPICAL BID PRN (Reason: PSORIATIC LESIONS WHEN NEEDED) acetaminophen [Tylenol] 325 mg Tablet 650 mg PO Q8H PRN (Reason: Pain) pantoprazole 40 mg tablet,delayed release (DR/EC) 40 mg PO BID 90 Days Qty: 180 0RF ferrous sulfate [iron] 325 mg (65 mg iron) Tablet 325 mg PO QAM acetylcysteine 600 mg Capsule 600 mg PO QAM Xifaxan 550 mg tablet 550 mg PO BID Men's 50 Plus Multivitamin 400-20-370 mcg Tablet 1 tab PO DAILY Probiotic 5 billion cell Capsule, Sprinkle 1 cap PO QAM finasteride 5 mg Tablet 5 mg PO QAM insulin glargine [Lantus U-100 Insulin] 100 unit/mL solution 22 unit subcut DAILY baclofen 5 mg Tablet 5 mg PO AMPM PRN (Reason: Spasms) duloxetine [Cymbalta] 60 mg capsule,delayed release(/EC) 60 mg PO DAILY metoclopramide HCl 5 mg tablet 5 mg PO TID PRN (Reason: Nausea) mirtazapine [Remeron] 30 mg tablet 30 mg PO HS lactulose [Kristalose] 10 gram packet 10 g PO BID Qty: 15 0RF Rx Instructions: Titrate your lactulose as advised to have 2-3 good Bowel movements per day Discharge Orders: Discharge Order (Routine); Ordered 09/23/23 Ordered By: Tavo Paul Admission Data Admit Date/Time: 09/21/23 21:01 Attending Provider: Tavo Paul Admit Provider: Yordan Andersen Primary Care Provider: Francisco Cisse Other Providers: Yordan Andersen
[2023-09-23 13:24] VITALS: BP 125/65; PULSE 66
--- NOTE | 2023-09-23 23:05 | Electrocardiogram Report ---
Test Reason : Blood Pressure : / mmHG Vent. Rate : 062 BPM Atrial Rate : 062 BPM P-R Int : 198 ms QRS Dur : 092 ms QT Int : 474 ms P-R-T Axes : 044 -16 047 degrees QTc Int : 481 ms Sinus rhythm with occasional Premature ventricular complexes Prolonged QT Abnormal ECG When compared with ECG of 27-AUG-2023 17:38, Premature ventricular complexes are now Present Confirmed by Benjamin Giles ([id number]) on 09/23/2023 11:05:28 PM Referred By: REFERRED SELF Confirmed By:Benjamin Giles
== END 2023-09-23 14:00 | disposition home or self-care (01) ==
LOC: ED 16:36 → 2W 16:36

== ENCOUNTER 2023-11-26 11:17 | Inpatient (IN) ==
--- OUTSIDE RECORDS SUMMARY | 2023-11-26 12:34 | External Medical Summary ---
Author Name Unknown Address Unknown Organization [id number][facility] [facility] [address] [place] [address] Laboratory Report Ordering Provider Test Date Status NEELAM RICCI 11/16/2023 11:57:44 Final Observation Date Value Abnormality Reference (Units ) Status SYNC LEUKOCYTES IN BLOOD BY AUTOMATED COUNT 11/16/2023 11:57:44 3.27 Below low normal 4.00-10.80 (K/uL) Final Segs 11/16/2023 11:57:44 60.9 40.0-75.0 (%) Final Lymphs % 11/16/2023 11:57:44 22.9 18.0-42.0 (%) Final Monos 11/16/2023 11:57:44 6.1 1.0-11.0 (%) Final Eosinophils 11/16/2023 11:57:44 8.9 Above high normal 0.0-6.0 (%) Final Basos 11/16/2023 11:57:44 1.2 0.0-2.0 (%) Final Absolute Segs 11/16/2023 11:57:44 1.99 1.80-7.70 (K/uL) Final Lymphs, absolute 11/16/2023 11:57:44 0.75 Below low normal 1.00-4.80 (K/ul) Final Monos, Abs 11/16/2023 11:57:44 0.20 0.00-1.10 (K/uL) Final Eos, Abs 11/16/2023 11:57:44 0.29 0.00-0.70 (K/uL) Final Basos, Abs 11/16/2023 11:57:44 0.04 0.00-0.20 (K/uL) Final Performing Location [facility]ATORY [facility] [address] [place] [address]
--- OUTSIDE RECORDS SUMMARY | 2023-11-26 12:34 | External Medical Summary ---
Author Name Unknown Address Unknown Organization [id number]:[facility] [place] [address] [place] [address] Laboratory Report Ordering Provider Test Date Status LILLIEARCADIO 11/18/2023 11:46:29 Final Observation Date Value Abnormality Reference (Units) Status Bacteria identified in Specimen by Culture 11/18/2023 11:46:29 No significant growth Final Test: Culture, Urine, Quant itative
Specimen Source: Urine, Clean Catch
Specimen Type: Urine
Specimen Date: 11/18/2023 11:46 AM
Result Date: 11/19/2023 1:07 PM
Result Status: Final result
Resulting Lab: [facility] [place]
[address]
[place], [place] [address]

CULTURE

No significant growth

null Performing Location [facility] [place] [address] [place], [place] [address]
--- OUTSIDE RECORDS SUMMARY | 2023-11-26 12:34 | External Medical Summary ---
Author Name Unknown Address Unknown Organization [id number]:[facility] [place] [address] Laboratory Report Ordering Provider Test Date Status ARCADIO MOREIRA 11/18/2023 11:46:29 Final Observation Date Value Abnormality Reference (Units ) Status RBC, Urine 11/18/2023 11:46:29 50+ Abnormal 0-2 (/HPF) Final WBC, Urine 11/18/2023 11:46:29 0-2 0-2 (/HPF) Final Bacteria [#/area] in Urine sediment by Microscopy high power field 11/18/2023 11:46:29 0-25 0-25 (/HPF) Final Performing Location [facility] [place] [address]
--- OUTSIDE RECORDS SUMMARY | 2023-11-26 12:34 | External Medical Summary ---
Author Name Unknown Address Unknown Organization [id number]:[facility] [address] [place] [address] Laboratory Report Ordering Provider Test Date Status NEELAM RICCI 11/16/2023 11:57:44 Final Observation Date Value Abnormality Reference (Units ) Status WBC, Total 11/16/2023 11:57:44 3.27 Below low normal 4. 00-10.80 (K/uL) Final RBC 11/16/2023 11:57:44 2.20 4.50-5.25 (M/uL) Final Hemoglobin 11/16/2023 11:57:44 7.4 Below low normal 14 .0-16.8 (g/dL) Final HCT 11/16/2023 11:57:44 22.7 Below low normal 40. 0-48.4 (%) Final MCV 11/16/2023 11:57:44 103.2 82.0-99.5 (fL) Final MCH 11/16/2023 11:57:44 33.6 27.0-34.0 (pg) Final MCHC 11/16/2023 11:57:44 32.6 32.0-36.0 (g/dL) Final RDW 11/16/2023 11:57:44 17.9 11.5-15.5 (%) Final Platelets 11/16/2023 11:57:44 97 Below low normal 140 -400 (K/uL) Final MPV 11/16/2023 11:57:44 11.3 6.6-11.1 ( fL) Final Performing Location [facility] [address] [place] [address]
--- OUTSIDE RECORDS SUMMARY | 2023-11-26 12:34 | External Medical Summary ---
Author Name Unknown Address Unknown Organization [id number]:[facility] [address] - [address] [place] [address] Laboratory Report Ordering Provider Test Date Status NEELAM RICCI 11/16/2023 11:57:44 Final Observation Date Value Abnormality Reference (Units ) Status BUN 11/16/2023 11:57:44 29 Above high normal 6-20 (mg/dL) Final Creatinine 11/16/2023 11:57:44 1.2 0.6-1.2 (mg/dL) Final Glomerular filtration rate/1.73 sq M.predicted [Volume Rate/Area] in Serum, Plasma or Blood by Creatinine-based formula (CKD-EPI) 11/16/2023 11:57:44 64 >=60 (mL/min) Final eGFR is calculated based on the CKD-EPI 2020 equation SODIUM 11/16/2023 11:57:44 143 135-146 (m mol/L) Final Potassium 11/16/2023 11:57:44 3.9 3.5-5.1 (m mol/L) Final Cl 11/16/2023 11:57:44 113 Above high normal 98 -107 (mmol/L) Final CO2 11/16/2023 11:57:44 20 Below low normal 22- 32 (mmol/L) Final Anion gap 11/16/2023 11:57:44 10 7-15 (mmol /L) Final Glucose 11/16/2023 11:57:44 139 Above high normal 70 -120 (mg/dL) Final Albumin 11/16/2023 11:57:44 2.8 Below low normal 3.8 -5.0 (g/dL) Final AST (Aspartate aminotransferase) 11/16/2023 11:57:44 39 10-50 (U/L) Fin al Alk Phos 11/16/2023 11:57:44 173 Above high normal 35 -130 (U/L) Final Bilirubin, Total 11/16/2023 11:57:44 2.7 Above high no rmal <=1.2 (mg/dL) Final Calcium 11/16/2023 11:57:44 8.3 Below low normal 8.4 -10.2 (mg/dL) Final Protein 11/16/2023 11:57:44 6.1 6.0-8.3 (g /dL) Final ALT (Alanine aminotransferase) 11/16/2023 11:57:44 22 10-50 (U/L) Layo dye Performing Location LABORATORY [facility] [address] [place] [address]
--- OUTSIDE RECORDS SUMMARY | 2023-11-26 12:34 | External Medical Summary | Summary of Care ---
Author Name Unknown Organization [facility] Address [address] [facility] [place] [address] Phone [phone] Care Team Providers Care C D Reactor Operator Name Role Phone Francisco Cisse MD Primary Care Provider + Reason for Visit * Reason Onset Date Comments Med Request 11/12/2023 Encounter Details Date Type Department Care Team (Late st Contact Info) Description 11/12/2023 Telephone General Internal Medicine [facility] [address] [facility] [place] [address] Francisco Cisse MD [address] [place] [address] Med Request Allergies No known active allergiesdocumented as of this encounter (statuses as of 11/14/2023) Medications Medication Sig Dispensed Refills Start Date End Date Status Tylenol 325 MG Oral Capsule (Acetaminophen) Take 650 mg by mouth every 8 hours as needed for Pain (fever). 0 Active OneTouch Verio In Vitro Strip (Glucose Blood)Indications:T ype 2 diabetes mellitus with hemoglobin A1c goal of less than 7.0% ([facility]) Use to test blood sugars 3 times a day 300 Strip 5 09/27/2022 Active BD Pen Needle Elizabeth 2nd Gen 32G X 4 MM USE DIRECTED TO ADMINISTER INSULIN AT DINNER DAILY 0 09/25/2022 Active Triamcinolone Acetonide 0.1 % External Cream (Aristocort) Apply to psoriatic lesions twice a day as needed for 2-3 weeks 453.6 g 0 11/21/2022 Active Mirtazapine 30 MG Oral Tablet (Remeron)Indication s:Neoplastic (malignant) related fatigue,Depression due to physical illness Take 1 Tablet by mouth at bedtime. 90 Tablet 1 02/15/2023 Active Lactulose 10 GM Oral Packet (Kristalose)Indicat ions:Cirrhosis of liver without ascites, unspecified hepatic cirrhosis type (HCC) Take 1 Packet by mouth in the morning and 1 Packet before bedtime. 60 Packet 5 03/06/2023 Active Multivitamin Men 50+ Oral Tablet Take by mouth. 0 Activ e High Potency Iron 65 MG Oral Tablet Take by mouth. 0 Act roderick Zinc 50 MG Oral Capsule Take 1 Capsule by mouth in the morning. 0 Active N-Acetyl Cysteine 600 MG Oral Tablet (Acetylcysteine (Nutrient)) Take by mouth. 0 Active FreeStyle Wang 2 Sensor Use as directed. Every 14 days 2 Each 5 05/28/2023 Active Probiotic (Lactobacillus) Oral Capsule 1 Capsule. 0 05/17/2023 Active oxyCODONE HCl 5 MG Oral Tablet (Oxy IR)Indications:Othe r closed fracture of twelfth thoracic vertebra, initial encounter (HCC) Take 1 Tablet by mouth every 6 hours as needed for Pain, Severe. 28 Tablet 0 07/12/2023 Active Furosemide 20 MG Oral Tablet (Lasix)Indications: Cirrhosis of liver with ascites, unspecified hepatic cirrhosis type Take 2 Tablets by mouth in the morning. 180 Tablet 3 07/30/2023 Active oxygen IN GAS Use 2 L/min(Oxygen) as directed at bedtime. 0 Active Albumin Human 25 % Intravenous SolutionIndications :Cirrhosis of liver with ascites, unspecified hepatic cirrhosis type 25Gm before and after paracentesis 100 mL 0 08/22/2023 Active Metoclopramide HCl 5 MG Oral Tablet (Reglan) One tab as often as 3 times a day, if needed for nausea 90 Tablet 3 08/30/2023 Active rifAXIMin 550 MG Oral Tablet (Xifaxan)Indication s:Cirrhosis of liver (HCC),Hepatic encephalopathy (HCC) Take 1 Tablet by mouth in the morning and 1 Tablet before bedtime. 180 Tablet 5 09/02/2023 Active Pantoprazole Sodium 40 MG Oral Tablet Delayed Release (Protonix)Indicatio ns:GAVE (gastric antral vascular ectasia) Take 1 Tablet by mouth in the morning and 1 Tablet in the evening. 60 Tablet 5 09/02/2023 Active Finasteride 5 MG Oral Tablet (Proscar) Take 1 Tablet by mouth in the morning. 90 Tablet 1 09/02/2023 Active DULoxetine HCl 30 MG Oral Capsule Delayed Release Particles (Cymbalta) Take 1 Capsule by mouth in the morning. 30 Capsule 5 09/23/2023 Active Zoster Vac Recomb Adjuvanted 50 MCG/0.5ML Intramuscular Suspension Reconstituted (Shingrix) Inject 0.5 mL into a large muscle now and repeat dose in 60 to 180 days 1 Each 1 10/11/2023 Active Allopurinol 100 MG Oral Tablet (Zyloprim)Indicatio ns:Gout of big toe Take 2 Tablets by mouth in the morning. 180 Tablet 2 10/28/2023 Active Lantus 100 UNIT/ML Subcutaneous Solution Inject 25 Units under the skin every evening. With dinner 1 Each 5 11/13/2023 Active Lantus 100 UNIT/ML Subcutaneous Solution Inject 25 Units under the skin every evening. With dinner 0 10/29/2023 11/13/20 Discontinu ed(Refill) Hospital, Clinic, or Other Facility Administered Medication Ordered Dose Route Frequency Start Date End Date Status Albuterol Sulfate (Proventil) (2.5 MG/3ML) 0.083% inhalation solution 2.5 mgIndications:SOB (shortness of breath) 2.5 mg NEBULIZER PRN 03/18/2023 03/17/2024 Act roderick Albuterol Sulfate (Proventil) (5 MG/ML) 0.5% *conc* inhalation solution 2.5 mgIndications:SOB (shortness of breath) 2.5 mg NEBULIZER PRN 03/18/2023 03/17/2024 Act roderick documented as of this encounter (statuses as of 11/14/2023) Active Problems Problem Noted Date Diagnosed Date Closed T12 spinal fracture 07/12/2023 Restrictive ventilatory defect 04/05/2023 Lung disease, restrictive 04/05/2023 Pulmonary hypertension 02/01/2023 Aortic valve sclerosis 02/01/2023 Radiation proctitis 01/18/2023 Chronic gout of multiple sites 07/04/2022 Mild mitral regurgitation 03/15/2022 Type 2 diabetes mellitus wit h stage 3a chronic kidney disease, with long-term current use of insulin 12/07/2021 Prolonged Q-T interval on ECG 09/11/2021 Portal vein thrombosis 06/19/2021 Chronic kidney disease, stage 3a 05/16/2021 Overview: Per CKD protocol Liver cell carcinoma 05/03/2021 Pancytopenia 05/03/2021 Anemia due to stage 3a chronic kidney disease Overview: Per CKD protocol History of prostate cancer 03/02/2021 S/P TIPS (transjugular intrahepatic portosystemi c shunt) 10/07/2020 Chronic anemia 06/28/2020 Iron deficiency anemia 03/18/2020 Acquired thrombocytopenia 09/05/2017 Acquired renal cyst 09/28/2014 Overview: Bilateral hemorrhagic cysts, with the right being larger than the left. Psoriasis 08/09/2014 Esophageal varices 07/28/2014 Cirrhosis of liver 07/28/2014 GAVE (gastric antral vascular ectasia) 4 Type 2 diabetes mellitus wit h hemoglobin A1c goal of less than 7.0% 07/14/2012 Overview: ICD-10 update of inactive term Dyslipidemia, goal LDL below 100 07/14/2012 Esophageal reflux 01/09/2007 Pancreas cyst 01/22/2006 Overview: Corrected the coding Allergic rhinitis documented as of this encounter (statuses as of 11/14/2023) Resolved Problems Problem Noted Date Diagnosed Date Resolved Date Closed compression fracture of body of L1 vertebra 12/07/2021 01/18/2023 Liver mass, left lobe 04/18/20212020 Type 2 diabetes mellitus wit h stage 3a chronic kidney disease 04/11/2021 12/07/2021 Overview: Per CKD protocol Anemia, chronic renal failur e, stage 3 (moderate) 09/12/2020 04/13/2021 Overview: Per CKD protocol Anemia of chronic renal failure 09/06/2020 09/15/2020 Overview: Per CKD protocol Diabetes mellitus with stage 3 chronic kidney disease 02/09/2019 04/13/2021 Overview: Per CKD protocol #1 FOFANA (nonalcoholic steatohepatitis) 09/03/2018 01/18/2023 NAFLD (nonalcoholic fatty liver disease) 04/25/2016 09/03/2018 Nodular prostate with urinary obstruction 09/28/2014 03/02/2021 Left renal mass 07/28/2014 01/18/2023 Bleeding esophageal varices 07/22/2014 01/15/2018 BPH without obstruction/lowe r urinary tract symptoms 04/06/2013 07/08/2018 Elevated prostate specific antigen (PSA) 02/09/2010 03/02/2021 Anxiety state 02/04/2007 07/08/2018 ADVANCE DIRECTIVE INFORMATION 01/21/2006 05/01/2017 Overview: No, Advance Directive brochure given to patient at prior appointment. ABDOMINAL PAIN, RECTAL 10/09/200201/09 Constipation 10/09/2002 09/04/2017 Overview: ICD-10 update of inactive term Other psoriasis 10/09/2002 07/08/2018 Dyslipidemia, goal to be determined 10/09/2002 07/14/2012 documented as of this encounter (statuses as of 11/14/2023) Immunizations Name Administration Dates Next Due COVID-19 mRNA, LNP-s, No Pre serve, 2-Dose Series ([employer]) 03/08/2021,02/15/2021 HepA Inact/HepB Recomb>=18yrs old 12/04/2019,04/2019,05/20/2019 11/19/2019 PPD 06/18/2017, 3,01/09/2012,0306/2011 Pneumococcal Conjugate Vacc, 13 Valent (Prevnar) 05/01/2017 Pneumococcal Polysaccharide PPV23 (Pneumovax) 08/28/2022,10/25/2015,07/14/2012 Season Influenza, Quad, PF, Adjuvanted, 65+ Yrs, IM (FLUAD) 10/07/2020(Deferred: Patient Refused - [facility] made aware) Seasonal Influenza Virus Vac cine, Unspecified Formulation 09/15/2021,09/01/2019,09/04/2017,08/03,09/13/2014,08/10/2013,10/07/20 12,09/03/2011 Seasonal Influenza, PF, 6 M & above, IM , (FluLaval or Fluzone) 09/04/2017 Seasonal Influenza, Quadriva lent Hd (Fluzone Hd) 10/11/2023 Seasonal Influenza, Quadriva lent Hd, 65+ Yrs 09/30/2020 Seasonal Influenza, Quadriva lent, No Preserve, IM 09/01/2019,08/27/2016,10/25/2015 Seasonal Influenza, Split, I IV3, With Preserve, Inj 09/13/2014,08/10/2013,10/07/2012,01/2011 Seasonal Influenza, Trivalen t, Adjuvanted, 65+ yrs 09/15/2021 TD - Tetanus/Diptheria (ADULT) 12/19/1999 TDAP (age 10 and older)(Boostrix) 09/28/2022 TDAP (age 11 and older)(Adacel) 02/12/2011 documented as of this encounter 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 Tobacco Use Types Packs/Day Years Used Date Smoking Tobacco: Never Smokeless Tobacco: Never Alcohol Use Standard Drinks/Week Comments Not Currently 0 (1 standard drink = 0.6 oz pur e alcohol) 1971 PHQ-2 Answer Date Recorded PHQ Adult Total Score 0 05/03/2021 Hunger Vital Sign Answer Date Recorded Within the past 12 months, y ou worried that your food would run out before you got the money to buy more. Never true 08/14/20 23 Within the past 12 months, t he food you bought just didn't last and you didn't have money to get more. Never true 08/14/2023 Sex and Gender Information Value Date Recorded Sex Assigned at Male 01/25/2020 1:53 PM EST Gender Identity Male 01/25/2020 1:53 PM EST Sexual Orientation Choose not to disclose 2019 1:53 PM EST Job Start Date Occupation Industry Not on file Not on file Not on file documented as of this encounter Functional Status Functional Status Response Date of Assess ment Are you deaf or do you have serious difficulty h earing? No 10/07/2020 Are you blind or do you have serious difficulty seeing, even when wearing glasses? No 10/07/2020 Do you have serious difficul ty walking or climbing stairs? (5 years old or older) No 10/07/2020 Do you have difficulty dress ing or bathing? (5 years old or older) No 10/07/2020 Because of a physical, menta l, or emotional condition, do you have difficulty doing errands alone such as visiting a doctor s office or shopping? (15 years old or older) No 10/07/20 20 Cognitive Status Response Date of Assessm ent Because of a physical, menta l, or emotional condition, do you have serious difficulty concentrating, remembering, or making decisions? (5 years old or older) No 10/07/2020 documented as of this encounter Miscellaneous Notes * Addendum Note - Gege Caballero MD - 11/13/2023 1:12 PM ESTAddended by: GEGE CABALLERO on: 11/13/2023 01:12 PM Modules accepted: Orders * Telephone Encounter - Gege Caballero MD - 11/13/2023 1:12 PM EST Done * Addendum Note - Henna Alan LPN - 11/13/2023 8:46 AM ESTAddended by: HENNA ALAN on: 11/13/2023 08:46 AM Modules accepted: Orders * Telephone Encounter - Michelle Roper CPhT - 11/12/2023 11:39 AM EST Pharmacy calling on behalf of the pt requesting the following medication below that is listed as "Historical". The following information was provided: Medication Name: Lantus Strength: 100 UNIT/ML Subcutaneous Solution Directions: Inject 25 Units under the skin every evening. With dinner - Subcutaneous Preferred Quantity: N/A Previous Prescriber: PCP Preferred Pharmacy: [facility] [id number] Please review and approve if appropriate. Thank you, Sil Roper Property Analyst [facility] ([facility] (Formerly [facility]) 11/12/2023,11:39 AM documented in this encounter Plan of Treatment Upcoming Encounters Date Type Department Care Team (Late st Contact Info) Description 12/13/2023 9:30 AM EST Office Visit Gastroenterology, [facility] [address] [facility] [place] [address] Lamar Tatum CRNP [address] [facility] [place] [address] 12/27/2023 2:30 PM EST Imaging Radiology [address] [facility] [place] [address] 01/13/2024 4:20 PM EST Office Visit General Internal Medicine [facility] [address] [facility] [place] [address] Joaquin Snider PA-C [address] [facility] [place] [address] 01/20/2024 4:00 PM EST Office Visit Hematology/Oncology [facility] [address] [facility] [place] [address] Jennifer Ramires MD [address] [facility] [place] [address] 03/13/2024 2:00 PM EDT Office Visit Dermatology [facility] [address] [place] [address] Francisco Watson MD [address] [facility] [place] [address] 08/20/2024 10:15 AM EDT Office Visit Ophthalmology, [facility] [address] [facility] [place] [address] Cody Gonzalez, DO [address] [facility] [place] [address] Scheduled Procedures Name Priority Associated Diagnoses Date/Ti me COLONOSCOPY FLEXIBLE PROXIMAL DIAGNOSTIC Recall History of colonic polyps Portal hypertensive gastropathy (HCC) ESOPHAGOGASTRODUODENOSCOPY ( EGD), FLEXIBLE, TRANSORAL, DIAGNOSTIC Recall History of colonic polyps Portal hypertensive gastropathy (HCC) Health Maintenance Due Date Last Done Comments Zoster Vaccines (1 of 2) 2000 COVID-19 Vaccine (3 - Pfizer risk series) 04/05/2021 03/08/2021, 02/15/2021 Depression Screening 05/03/2022 05/03/2021 HbA1c 11/27/2023 05/28/2023, 01/03, 10/10/2022, Additional history exists Diabetic Eye Exam 01/17/2024 01/17/2023, , 01/17/2023, Additional history exists CKD PHOS USE SMARTSET 97332 01/28/202401/03, 07/26/2022, 12/05/2021, Additional history exists GFR 02/28/2024 08/30/2023, 07/03, 07/12/2023, Additional history exists Diabetic Foot Exam 03/06/2024 03/06/2023, 0 01/03/2022, 03/02/2021, Additional history exists Albumin/Creatinine Ratio 07/12/2024 023, 10/01/2022, 09/11/2021, Additional history exists COLONOSCOPY-ANNUAL AGES 18-100 08/09/2024 08/09/2023, 11/07/2022, 11/07/2022, Additional history exists CKD HGB USE SMARTSET 12164 09/26/202409/26, 09/26/2023, 08/30/2023, Additional history exists Lipid Panel 01/28/2028 01/28/2023, 11/02, 08/15/2020, Additional history exists DTaP,Tdap,and Td Vaccines (3 - Td or Tdap) 09/28/2032 09/28/2022, 02/12/2011, 12/19/1999 Pneumococcal Vaccine: 65+ Years Completed 09/14/2022, 08/28/2022, 05/01/2017, Additional history exists COLONOSCOPY-EVERY 3 YRS AGES 18-100 Discontinued 08/09/2023, 11/07/2022, 11/07/2022, Additional history exists COLONOSCOPY-EVERY 5 YRS AGES 18-100 Discontinued 08/09/2023, 11/07/2022, 11/07/2022, Additional history exists Influenza Vaccine (FLU shot) Completed 10/11/2023, 09/15/2021, 09/15/2021, Additional history exists GARDASIL-HPV IMMUNIZATION SERIES Aged Out No longer eligible based on patient's age to complete this topic MENINGOCOCCAL (MENACTRA/MENVEO) Aged Out No longer eligible based on patient's age to complete this topic documented as of this encounter Medical Devices Implanted Type Area Workers Compensation Attorney Device Identifier Shelf Expiration Date Model / Serial / Lot Clareon Iol Aspheric Hydrophobic Acrylic Iol Implanted:Qty: 1 on 04/23/2023 by Cody Gonzalez DO at [facility] Lens Left: Eye 11/12/2025 [id number] / [id number] / Viatorr Tips Endoprosthesis 8-10 Mm X 8cm / 2cm Implanted:Qty: 1 on 10/07/2020 by Go Alvarado MD at [facility] Right: Abdomen 03/03/2023 [id number] / / [id number] Description:Viatorr TIPS End oprosthesis 8-10 mm x 8cm / 2cm, Manufactored by [employer] Syr Pf 2ml Embospheres 100-300 - [id number] Implanted:Qty: 1 on 04/18/2021 by Kevin Lim DO at OR [facility] Left: Abdomen [employer] [id number] 11/25/2023 [id number] / / [id number] Syr Pf 2ml Embospheres 100-300 - [id number] Implanted:Qty: 1 on 03/28/2022 at [facility] [employer] [id number] 08/31/2024 [id number] / / [id number] -[id number] Clareon Iol Aspheric Hydrophobic Acrylic Iol Implanted:Qty: 1 on 04/02/2023 by Cody Gonzalez DO at 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 Expl anation Advance Directives and Living Will 12/11/2022 ADVANCE DIRECTIVE / LIVING WILL LIVING WILL Power of Carrier Associate 12/11/2022 POWER OF A TTORNEY Latest Code Status on File Code Status Date Activated Date Inactivated Comments Full Code 04/23/2023 8:54 AM 04/23/2023 3:33 PM Question Answer Comments Discussion of Advance Directives occurred with: Not Discussed due to patient's condition Code Status History Code Status Date Activated Date Inactivated Comments Full Code 04/02/2023 12:04 PM 04/02/2023 7:22 PM Question Answer Comments Discussion of Advance Directives occurred with: Not Discussed due to patient's condition Full Code 10/07/2020 1:06 PM 10/08/2020 5:46 PM This order reflects the patients wishes and were consensually agreed upon. Question Answer Comments Discussion of Advance Directives occurred with: Patient Does the patient have a Living Will? No Does the patient have Health Care Power of Carrier Associate? No Full Code 07/22/2014 9:56 PM 07/24/2014 8:18 PM This order reflects the patients wishes and were consensually agreed upon. Question Answer Comments Discussion of Advance Directives occurred with: Patient Does the patient have a Living Will? No Does the patient have Health Care Power of Carrier Associate? No Care Teams C D Reactor Operator Relationship Specialty Start Date End Date Francisco Cisse MD [address] [facility] [place] [address] PCP - General Internal Medicine 09/04/21 documented as of this encounter
--- OUTSIDE RECORDS SUMMARY | 2023-11-26 12:34 | External Medical Summary ---
Author Name Unknown Address Unknown Organization [id number]:[facility] [place] [address] [place] [address] Laboratory Report Ordering Provider Test Date Status NEELAM RICCI 11/16/2023 11:57:44 Final Observation Date Value Abnormality Reference (Units ) Status Nucleated erythrocytes/100 leukocytes [Ratio] in Blood by Automated count 11/16/2023 11:57:44 Final Elliptocytes [Presence] in Blood by Light microscopy 11/16/2023 11:57:44 Moderate Abnormal None Seen Final Dacrocytes [Presence] in Blood by Light microscopy 11/16/2023 11:57:44 Moderate Abnormal None Seen Final Performing Location LABORATORY [place] [address] [place] [address]
--- OUTSIDE RECORDS SUMMARY | 2023-11-26 12:34 | External Medical Summary | Summary of Care ---
Author Name Unknown Organization [facility] Address [address] [facility] [address] Phone [phone] Care Team Providers Care [employer] Name Role Phone Francisco Cisse MD Primary Care Provider + Reason for Visit * Reason Onset Date Comments Order Request 11/16/2023 Encounter Details Date Type Department Care Team (Late st Contact Info) Description 11/16/2023 Telephone General Internal Medicine [facility] [address] [facility] [place] [address] Francisco Cisse MD [address] [place] [address] Order Request Allergies No known active allergiesdocumented as of this encounter (statuses as of 11/18/2023) Medications Medication Sig Dispensed Refills Start Date End Date Status Tylenol 325 MG Oral Capsule (Acetaminophen) Take 650 mg by mouth every 8 hours as needed for Pain (fever). 0 Active OneTouch Verio In Vitro Strip (Glucose Blood)Indications:Ty pe 2 diabetes mellitus with hemoglobin A1c goal of less than 7.0% ([facility]) Use to test blood sugars 3 times [...] 11/21/2022 Active Mirtazapine 30 MG Oral Tablet (Remeron)Indications :Neoplastic (malignant) related fatigue,Depression due to physical illness Take 1 Tablet by mouth at bedtime. 90 Tablet 1 02/15/2023 Active Lactulose 10 GM Oral Packet (Kristalose)Indicati ons:Cirrhosis of liver without ascites, unspecified hepatic cirrhosis type (HCC) Take 1 Packet by mouth in the morning and 1 Packet before bedtime. 60 Packet 5 03/06/2023 Active Multivitamin Men 50+ Oral Tablet Take by mouth. 0 Active High Potency Iron 65 MG Oral Tablet Take by mouth. 0 Active Zinc 50 MG Oral Capsule Take 1 Capsule by mouth in the morning. 0 Active N-Acetyl Cysteine 600 MG Oral Tablet (Acetylcysteine (Nutrient)) Take by mouth. 0 Active FreeStyle Wang 2 Sensor Use as directed. Every 14 days 2 Each 5 05/28/2023 Active Probiotic (Lactobacillus) Oral Capsule 1 Capsule. 0 05/17/2023 Active oxyCODONE HCl 5 MG Oral Tablet (Oxy IR)Indications:Other closed fracture of twelfth thoracic vertebra, initial encounter (HCC) Take 1 Tablet by mouth every 6 hours as needed for Pain, Severe. 28 Tablet 0 07/12/2023 Active Furosemide 20 MG Oral Tablet (Lasix)Indications:C irrhosis of liver with ascites, unspecified hepatic cirrhosis type Take 2 Tablets by mouth in the morning. 180 Tablet 3 07/30/2023 Active oxygen IN GAS Use 2 L/min(Oxygen) as directed at bedtime. 0 Active Albumin Human 25 % Intravenous SolutionIndications: Cirrhosis of liver with ascites, unspecified hepatic cirrhosis type 25Gm before and after paracentesis 100 mL 0 08/22/2023 Active Metoclopramide HCl 5 MG Oral Tablet (Reglan) One tab as often as 3 times a day, if needed for nausea 90 Tablet 3 08/30/2023 Active rifAXIMin 550 MG Oral Tablet (Xifaxan)Indications :Cirrhosis of liver (HCC),Hepatic encephalopathy (HCC) Take 1 Tablet by mouth in the morning and 1 Tablet before bedtime. 180 Tablet 5 09/02/2023 Active Pantoprazole Sodium 40 MG Oral Tablet Delayed Release (Protonix)Indication s:GAVE (gastric antral vascular ectasia) Take 1 Tablet [...] 10/11/2023 Active Allopurinol 100 MG Oral Tablet (Zyloprim)Indication s:Gout of big toe Take 2 Tablets by mouth in the morning. 180 Tablet 2 10/28/2023 Active Lantus 100 UNIT/ML Subcutaneous Solution Inject 25 Units under the skin every evening. With dinner 3 Each 5 11/14/2023 Active Hospital, Clinic, or Other Facility Administered Medication [...] as of this encounter (statuses as of 11/18/2023) Active Problems Problem Noted Date Diagnosed Date [...] as of this encounter (statuses as of 11/18/2023) Resolved Problems Problem Noted Date Diagnosed Date [...] as of this encounter (statuses as of 11/18/2023) Immunizations Name Administration Dates Next Due COVID-19 mRNA, LNP-s, No Pre serve, 2-Dose Series (Vayable) 03/08/2021,02/15/2021 HepA Inact/HepB Recomb>=18yrs old 12/04/2019,04/2019,05/20/2019 11/19/2019 PPD 06/18/2017, 3,01/09/2012,06/2011 Pneumococcal Conjugate Vacc, 13 Valent (Prevnar) 05/01/2017 Pneumococcal Polysaccharide PPV23 (Pneumovax) 08/28/2022,10/25/2015,07/14/2012 Season Influenza, Quad, PF, Adjuvanted, 65+ Yrs, IM (FLUAD) 10/07/2020(Deferred: Patient Refused - pt says he already had his shot last month at [facility] and Mckin[facility] Cobian made aware) Seasonal Influenza [...] Influenza, Trivalen t, Adjuvanted, 65+ yrs 09/15/2021 TDAP (age 10 and older)(Boostrix) 09/28/2022 TDAP [...] as of this encounter Miscellaneous Notes * Telephone Encounter - Corina Prado LPN - 11/18/2023 9:00 AM EST Patient has appointment with Dr. Ayers for this today. * Telephone Encounter - Angela Lynch OSA - 11/16/2023 11:58 AM EST An order was requested for this patient. Name of Requesting Provider: patient requesting from PCP Order Requested: urinalysis and any other labwork to test for kidney infection - patient has had symptoms for a few days Diagnosis/Reason for Request: blood in urine and abdominal pain If order request is for Mammogram: Is the patient having any breast symptoms? N/A Is there a chance of ? N/A Has the patient had any breast problems in the past? NA What location AND department does the patient wish to have their order completed at? [facility] Fax Number, if applicable: please place in chart Call Back Number: [phone] If the caller is not a current patient, please advise the patient to call their current PCP to havethe order's prior to being seen in our office. The patient was informed that our providers would not order anything (medication, labs, etc.) prior to being seen. documented in this encounter Plan of Treatment Upcoming Encounters Date Type Department Care Team (Late st Contact Info) Description 11/18/2023 11:00 AM EST Office Visit General Internal Medicine [facility] [address] [place] [address] Shelbie Ayers MD [address] [place] [address] 12/13/2023 9:30 AM EST Office Visit [facility], [facility] [address] Lamar Tatum CRNP [address] [facility] [address] 12/27/2023 2:30 PM EST Imaging Radiology [address] 132 [facility] [place] [address] 01/13/2024 4:20 PM EST Office Visit General Internal Medicine [facility] [address] [place] [address] Joaquin Snider PA-C [address] [place] [address] 01/20/2024 4:00 PM EST Office Visit Hematology/Oncology [facility] [address] [place] [address] Jennifer Ramires MD [address] [place] [address] 03/13/2024 2:00 PM EDT Office Visit Dermatology [facility] [address] [place] [address] Francisco Watson MD [address] [place] [address] 08/20/2024 10:15 AM EDT Office Visit Ophthalmology, [facility] [address] [facility] [place] [address] Cody Gonzalez, DO [address] [facility] [place] [address] Scheduled Procedures Name Priority Associated Diagnoses Date/Ti [...] Additional history exists CKD PHOS USE SMARTSET 52693 01/28/202401/03, 07/26/2022, 12/05/2021, Additional history exists Diabetic Foot Exam 03/06/2024 03/06/2023, 0 01/03/2022, 03/02/2021, Additional history exists GFR 05/17/2024 11/16/2023, 08/03, 07/24/2023, Additional history exists Albumin/Creatinine Ratio 07/12/2024 023, 10/01/2022, 09/11/2021, Additional history exists COLONOSCOPY-ANNUAL AGES 18-100 08/09/2024 08/09/2023, 11/07/2022, 11/07/2022, Additional history exists CKD HGB USE SMARTSET 75959 11/16/202411/16, 11/16/2023, 09/26/2023, Additional history exists Lipid Panel 01/28/2028 01/28/2023, [...] this encounter Medical Devices Implanted Type Area Glost Placer Device Identifier Shelf Expiration Date Model / Serial / Lot Clareon Iol Aspheric Hydrophobic Acrylic Iol Implanted:Qty: 1 on 04/23/2023 by Cody Gonazlez DO at OR [facility] Lens Left: Eye 11/12/2025 [id number] / [id number] / Viatorr Tips Endoprosthesis 8-10 Mm X 8cm / 2cm Implanted:Qty: 1 on 10/07/2020 by Go Alvarado MD at [facility] Right: Abdomen 03/03/2023 [id number] / / [id number] Description:Viatorr TIPS End oprosthesis 8-10 mm x 8cm / 2cm, Manufactored by [employer] Syr Pf 2ml Embospheres 100-300 - [id number] Implanted:Qty: 1 on 04/18/2021 by Kevin Lim DO at OR [facility] Left: Abdomen [employer] [id number] 11/25/2023 [id number] / / [id number] Syr Pf 2ml Embospheres 100-300 - [id number] Implanted:Qty: 1 on 03/28/2022 at [facility] [employer] [id number] 08/31/2024 S220GH / / [id number] -[id number] Clareon Iol Aspheric Hydrophobic Acrylic Iol Implanted:Qty: 1 on 04/02/2023 by Cody Gonzalez DO at OR [facility] Right: Eye JAZMIN 11/12/2025 CNA0T0 / [id number] / documented as of this encounter Advance Directives Documents on File Type Date Recorded 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 No Full Code 07/22/2014 9:56 PM 07/24/2014 8:18 PM This order reflects the patients wishes and were consensually agreed upon. Question Answer Comments Discussion of Advance Directives occurred with: Patient Does the patient have a Living Will? No Does the patient have Health Care Power of Pull Worker? No Care Teams [employer] Relationship Specialty Start Date End Date Francisco Cisse MD [address] [place] [address] PCP - General Internal Medicine 09/04/21 documented as of this encounter
--- OUTSIDE RECORDS SUMMARY | 2023-11-26 12:34 | External Medical Summary ---
Author Name Unknown Address Unknown Organization K01:[facility] - [address] [place] [address] Laboratory Report Ordering Provider Test Date Status NEELAM RICCI 11/16/2023 11:57:44 Final Observation Date Value Abnormality Reference (Units ) Status Ferritin 11/16/2023 11:57:44 53 30-400 (ng /mL) Final Performing Location [facility] - [address] [place] [address]
--- OUTSIDE RECORDS SUMMARY | 2023-11-26 12:34 | External Medical Summary ---
Author Name Unknown Address Unknown Organization K[facility] [address] [address] Laboratory Report Ordering Provider Test Date Status NEELAM RICCI 11/16/2023 11:57:44 Final Observation Date Value Abnormality Reference (Units ) Status Iron 11/16/2023 11:57:44 78 45-176 (ug/dL) Final Iron-binding capacity 11/16/2023 11:57:44 213 Below low normal 250-425 (ug/dL) Final Transferrin Sat % 11/16/2023 11:57:44 37 15-55 (%) Final Performing Location [facility] [place] [address] [place] [address]
--- OUTSIDE RECORDS SUMMARY | 2023-11-26 12:34 | External Medical Summary | Summary of Care ---
Author Name Unknown Organization [facility] Address [address] [facility] [address] Phone [phone] Care Team Providers Care Paint Roller Assembler Name Role Phone Francisco Cisse MD Primary Care Provider + Reason for Visit * Reason Comments Outpatient Testing Encounter Details Date Type Department Care Team (Late st Contact Info) Description 11/16/2023 10:00 AM EST Laboratory Laboratory, [facility] [address] [facility] [place] [address] [facility] [address] [facility] [place] [address] GAVE (gastric antral vascular ectasia); Cirrhosis of liver with ascites, unspecified hepatic cirrhosis type ; Iron deficiency anemia, unspecified iron deficiency anemia type Allergies No known active allergiesdocumented as of this encounter (statuses as of 11/16/2023) Medications Medication Sig Dispensed Refills Start Date End Date Status Tylenol 325 MG Oral Capsule (Acetaminophen) Take 650 mg by mouth every 8 hours as needed for Pain (fever). 0 Active OneTouch Verio In Vitro Strip (Glucose Blood)Indications:Ty pe 2 diabetes mellitus with hemoglobin A1c goal of less than 7.0% (HCC) Use to test blood sugars 3 times [...] as of this encounter (statuses as of 11/16/2023) Active Problems Problem Noted Date Diagnosed Date [...] as of this encounter (statuses as of 11/16/2023) Resolved Problems Problem Noted Date Diagnosed Date [...] as of this encounter (statuses as of 11/16/2023) Immunizations Name Administration Dates Next Due COVID-19 mRNA, LNP-s, No Pre serve, 2-Dose Series (Carnet de Mode) 03/08/2021,02/15/2021 HepA Inact/HepB Recomb>=18yrs old 12/04/2019,04/2019,05/20/2019 11/19/2019 PPD 06/18/2017, 3,01/09/2012,0306/2011 Pneumococcal Conjugate Vacc, 13 Valent (Prevnar) 05/01/2017 Pneumococcal Polysaccharide PPV23 (Pneumovax) 08/28/2022,10/25/2015,07/14/2012 Season Influenza, Quad, PF, Adjuvanted, 65+ Yrs, IM (FLUAD) 10/07/2020(Deferred: Patient Refused - pt says he already had his shot last month at [facility] and [facility] made aware) [...] No 10/07/2020 documented as of this encounter Plan of Treatment Upcoming Encounters Date Type Department Care Team (Late st Contact Info) Description 11/18/2023 11:00 AM EST Office Visit General Internal Medicine [facility] [address] [place] [address] Shelbie Ayers MD [address] [place] [address] [address] 12/13/2023 9:30 AM EST Office Visit Gastroenterology, [facility] [address] [facility] [place] [address] Lamar Tatum CRNP 132 [facility] [place] [address] 12/27/2023 2:30 PM EST Imaging Radiology [address] [facility] [place] [address] 01/13/2024 4:20 PM EST Office Visit General Internal Medicine [facility] [address] [place] [address] Joaquin Snider PA-C [address] [place] [address] [address] 01/20/2024 4:00 PM EST Office Visit Hematology/Oncology [facility] [address] [place] [address] [address] Jennifer Ramires MD 200 [facility] [place] [address] 03/13/2024 2:00 PM EDT Office Visit Dermatology [facility] [address] [place] [address] Francisco Watson MD 200 [facility] [place] [address] 08/20/2024 10:15 AM EDT Office Visit Ophthalmology, [facility] [address] [place] [address] Cody Gonzalez DO 21 [facility] [place] [address] Pending Results Name Type Priority Associated Diagnoses Date /Time CBC WITH WBC DIFFERENTIAL Lab Routine GAVE (gastric antral vascular ectasia) Cirrhosis of liver with ascites, unspecified hepatic cirrhosis type Iron deficiency anemia, unspecified iron deficiency anemia type 11/16/2023 11:57 AM EST COMPREHENSIVE METABOLIC PANEL Lab Routine GAVE (gastric antral vascular ectasia) Cirrhosis of liver with ascites, unspecified hepatic cirrhosis type Iron deficiency anemia, unspecified iron deficiency anemia type 11/16/2023 11:57 AM EST FERRITIN Lab Routine GAVE (gastric antral vascular ectasia) Cirrhosis of liver with ascites, unspecified hepatic cirrhosis type Iron deficiency anemia, unspecified iron deficiency anemia type 11/16/2023 11:57 AM EST IRON SCREEN, INCLUDING TIBC Lab Routine GAVE (gastric antral vascular ectasia) Cirrhosis of liver with ascites, unspecified hepatic cirrhosis type Iron deficiency anemia, unspecified iron deficiency anemia type 11/16/2023 11:57 AM EST CBC Lab Routine GAVE (gastric antral vascular ectasia) Cirrhosis of liver with ascites, unspecified hepatic cirrhosis type Iron deficiency anemia, unspecified iron deficiency anemia type 11/16/2023 11:57 AM EST DIFFERENTIAL, AUTOMATED Lab Routine GAVE (gastric antral vascular ectasia) Cirrhosis of liver with ascites, unspecified hepatic cirrhosis type Iron deficiency anemia, unspecified iron deficiency anemia type 11/16/2023 11:57 AM EST Scheduled Procedures Name Priority Associated Diagnoses Date/Ti [...] Additional history exists CKD PHOS USE SMARTSET 13018 01/28/202401/03, 07/26/2022, 12/05/2021, Additional history exists GFR 02/28/2024 08/30/2023, 07/03, 07/12/2023, Additional history exists Diabetic Foot Exam 03/06/2024 03/06/2023, 0 01/03/2022, 03/02/2021, Additional history exists Albumin/Creatinine Ratio 07/12/2024 023, 10/01/2022, 09/11/2021, Additional history exists COLONOSCOPY-ANNUAL AGES 18-100 08/09/2024 08/09/2023, 11/07/2022, 11/07/2022, Additional history exists CKD HGB USE SMARTSET 30427 09/26/202409/26, 09/26/2023, 08/30/2023, Additional history exists Lipid [...] this encounter Medical Devices Implanted Type Area Pharmaceutical Officer Device Identifier Shelf Expiration Date Model / Serial / Lot Clareon Iol Aspheric Hydrophobic Acrylic Iol Implanted:Qty: 1 on 04/23/2023 by Cody Gonzalez DO at OR [facility] Lens Left: Eye 11/12/2025 CNA0T0 / [id number] / Viatorr Tips Endoprosthesis 8-10 Mm X 8cm / 2cm Implanted:Qty: 1 on 10/07/2020 by Go Alvarado MD at [facility] Right: Abdomen 03/03/2023 [id number] / / [id number] Description:Viatorr TIPS End oprosthesis 8-10 mm x 8cm / 2cm, Manufactored by [employer] Syr Pf 2ml Embospheres 100-300 - [id number] Implanted:Qty: 1 on 04/18/2021 by Kevin Lim DO at OR [facility] Left: Abdomen [employer] [id number] 11/25/2023 S220GH / / [id number] -[id number] Syr Pf 2ml Embospheres 100-300 - [id number] Implanted:Qty: 1 on 03/28/[address] [facility] [employer] [id number] 08/31/2024 S220GH / / [id number] -5 Clareon Iol Aspheric Hydrophobic Acrylic Iol Implanted:Qty: 1 on 04/02/2023 by Cody Gonzalez DO at OR [facility] Right: Eye JAZMIN 11/12/2025 CNA0T0 / [id number] / documented as of this encounter Visit Diagnoses Diagnosis GAVE (gastric antral vascular ectasia) Angiodysplasia of stomach and duodenum (without mention of hemorrhage) Cirrhosis of liver with ascites, unspecified hepatic cirrhosis type Iron deficiency anemia, unspecified iron deficiency anemia type documented in this encounter Advance Directives Documents on File Type Date Recorded 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 No Full Code 07/22/2014 9:56 PM 07/24/2014 8:18 PM This order reflects the patients wishes and were consensually agreed upon. Question Answer Comments Discussion of Advance Directives occurred with: Patient Does the patient have a Living Will? No Does the patient have Health Care Power of Call Center Consultant? No Care Teams Paint Roller Assembler Relationship Specialty Start Date End Date Francisco Cisse MD [address] [place] [address] PCP - General Internal Medicine 09/04/21 documented as of this encounter
--- OUTSIDE RECORDS SUMMARY | 2023-11-26 12:34 | External Medical Summary | Summary of Care ---
Author Name Unknown Organization [facility] Address [address] [place] [address] Phone [phone] Care Team Providers Care Patient Resource Coordinator Name Role Phone Francisco Cisse MD Primary Care Provider + Reason for Referral * Evaluate & Treat - Unlimited Visits (Within 3 days (urgent)) - Authorized Specialty Diagnoses / Procedures Referred By Chacho fleming Referred To Contact Urology Diagnoses Recurrent gross hematuria History of prostate cancer History of radiation therapy Suprapubic pain, acute Shelbie Ayers MD [address] [place] [address] Referral ID Status Reason Start Date Expiration Date Visits Requested Visits Authorized [id number] Authorized Specialty Services Required 3 [phone] Question Answer Referral Priority Within 3 days (urgent) Where should this appointment be scheduled? [facility] What is the patient being referred for? Hematuria What is Hematuria condition? Gross Reason for Visit * Reason Comments Acute The pt stated he has had hematuria for 4-5 days with lower ABD discomfort. Encounter Details Date Type Department Care Team (Late st Contact Info) Description 11/18/2023 11:00 AM EST Office Visit General Internal Medicine [place] [address] [place] [address] Shelbie Ayers MD [address] [facility] [place] [address] Recurrent gross hematuria*; History of prostate cancer; History of radiation therapy; Suprapubic pain, acute; Liver cell carcinoma (HCC); Pancytopenia (HCC); Anemia, unspecified type Allergies No known active allergiesdocumented as [...] hemoglobin A1c goal of less than 7.0% ([facility]) Use to test blood sugars 3 [...] fracture of twelfth thoracic vertebra, initial encounter ([facility]) Take 1 Tablet by mouth every 6 [...] mRNA, LNP-s, No Pre serve, 2-Dose Series (ARTtwo50) 03/08/2021,02/15/2021 HepA Inact/HepB Recomb>=18yrs old 12/04/2019,04/2019,05/20/2019 11/19/2019 PPD 06/18/2017, 3,01/09/2012,06/2011 Pneumococcal Conjugate Vacc, 13 Valent (Prevnar) 05/01/2017 Pneumococcal Polysaccharide PPV23 (Pneumovax) 08/28/2022,10/25/2015,07/14/2012 Season Influenza, Quad, PF, Adjuvanted, 65+ Yrs, IM (FLUAD) 10/07/2020(Deferred: Patient Refused - pt says he already had his shot last month at [facility] Handy Lyons and Mckinley Cobian made aware) [...] on file documented as of this encounter Last Filed Vital Signs Vital Sign Reading Time Taken Comments Blood Pressure 122/60 11/18/2023 11:12 AM EST Pulse 69 11/18/2023 11:12 AM EST Temperature 36 C (96.8 F) 11/18/2023 11: 12 AM EST Respiratory Rate - - Oxygen Saturation 99% 11/18/2023 11: 12 AM EST Inhaled Oxygen Concentration - - Weight 81.6 kg (179 lb 14.4 oz) 023 11:12 AM EST Height - - Body Mass Index 27.91 10/11/2023 1:53 PM EST documented in this encounter Functional Status Functional Status Response [...] No 10/07/2020 documented as of this encounter Progress Notes * Shelbie Ayers MD - 11/18/2023 11:18 AM EST SUBJECTIVE: Luis Hale is a 73 year old male. Chief Complaint Patient presents with Acute The pt stated he has had hematuria for 4-5 days with lower ABD discomfort. HPI: Patient is being seen for acute appointment with symptoms of hematuria for the last 4-5 days. States urine is cranberry colored. Denies passing any clots, mild discomfort in the bladder area. Noback pain. No fever or chills. No nausea or vomiting. Drinks flavored water about 3-4 cans a day Previous imaging reviewed and as noted below. Problem list and medications reviewed. States he had labs done for Hematology yesterday, reviewed, mostly stable except slight worsening of the anemia. He has not acutely short of breath. Gives history of prostate cancer 2020, completed XRT 04/05/21; on Proscar -followed by Urology, last note as below, patient missed appointment in July due to transportation issues and not reschedule 09/26/23--MRI liver>KIDNEYS: Left kidney anterior interpolar region 1.5 x 1.4 cm cystic lesion with a few thick enhancing septa is minimally increased from 07/19/2021 when it measured 1.2 x 1.1 cm. Few additional tiny cysts. Urology eval 03/20/23- Impression/Plan: 72-year-old male with stable left renal mass, history of prostate cancer, JAYDEN, gross hematuria. 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 Patient continues to be actively managed for his numerous comorbidities. Will hold on acute cystoscopy, plan on 3 month follow-up of possible cysto at that time depending on if his hematuria continues. In the c ontext of the patient's comorbidities, I think staged management of his medical issues are reasonable. Will continue to follow the size of his renal lesion on hepatic imaging which will likely take place in the future. I suspect that active management of his renal lesion will not be needed over thecourse of time. Patient denies voiding bother at this time. Will plan on a PSA at the time of his radiation oncology visit, but excellent PSA values so far is appreciated. Patient can certainly contact us with any recurrent hematuria or urinary bother prior to his scheduled follow-up appointment. If his health is stabilized somewhat will consider cystoscopy at the time of his next visit. Patient chad ocalizes good understanding of the treatment plan. 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 Esophageal reflux K21.9 Type 2 diabetes mellitus with hemoglobin A1c goal of less than 7.0% (HCC) E11.9 Dyslipidemia, goal LDL below 100 E78.5 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 Esophageal varices (HCC) I85.00 Cirrhosis of liver (HCC) K74.60 Psoriasis L40.9 Acquired renal cyst N28.1 Acquired thrombocytopenia (HCC) D69.6 Iron deficiency anemia D50.9 Chronic anemia D64.9 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 History of prostate cancer Z85.46 Anemia due to stage 3a chronic kidney disease (HCC) N18.31, D63.1 Liver cell carcinoma (HCC) C22.0 Pancytopenia (HCC) D61.818 Chronic kidney disease, stage 3a (HCC) N18.31 Portal vein thrombosis I81 Prolonged Q-T interval on ECG R94.31 Type 2 diabetes mellitus with stage 3a chronic kidney disease, with long-term current use of insulin (HCC) E11.22, N18.31, Z79.4 Mild mitral regurgitation I34.0 Chronic gout of multiple sites M1A.09X0 Radiation proctitis K62.7 Pulmonary hypertension (HCC) I27.20 Aortic valve sclerosis I35.8 Restrictive ventilatory defect R94.2 Lung disease, restrictive J98.4 Closed T12 spinal fracture ([facility]) S22.380G Current Outpatient Medications Medication Sig Dispense Refill Tylenol 325 MG Oral Capsule (Acetaminophen) Take 650 mg by mouth every 8 hours as needed for Pain (fever). OneTouch Verio In Vitro Strip (Glucose Blood) Use to test blood sugars 3 times a day 300 Strip 5 BD Pen Needle Elizabeth 2nd Gen 32G X 4 MM USE DIRECTED TO ADMINISTER INSULIN AT DINNER DAILY Triamcinolone Acetonide 0.1 % External Cream (Aristocort) Apply to psoriatic lesions twice a day asneeded for 2-3 weeks 453.6 g 0 Mirtazapine 30 MG Oral Tablet (Remeron) Take 1 Tablet by mouth at bedtime. 90 Tablet 1 Lactulose 10 GM Oral Packet (Kristalose) Take 1 Packet by mouth in the morning and 1 Packet before bedtime. 60 Packet 5 Multivitamin Men 50+ Oral Tablet Take by mouth. High Potency Iron 65 MG Oral Tablet Take by mouth. Zinc 50 MG Oral Capsule Take 1 Capsule by mouth in the morning. N-Acetyl Cysteine 600 MG Oral Tablet (Acetylcysteine (Nutrient)) Take by mouth. FreeStyle Wang 2 Sensor Use as directed. Every 14 days 2 Each 5 Probiotic (Lactobacillus) Oral Capsule 1 Capsule. oxyCODONE HCl 5 MG Oral Tablet (Oxy IR) Take 1 Tablet by mouth every 6 hours as needed for Pain, Severe. 28 Tablet 0 Furosemide 20 MG Oral Tablet (Lasix) Take 2 Tablets by mouth in the morning. 180 Tablet 3 oxygen IN GAS Use 2 L/min(Oxygen) as directed at bedtime. Albumin Human 25 % Intravenous Solution 25Gm before and after paracentesis 100 mL 0 Metoclopramide HCl 5 MG Oral Tablet (Reglan) One tab as often as 3 times a day, if needed for nausea 90 Tablet 3 rifAXIMin 550 MG Oral Tablet (Xifaxan) Take 1 Tablet by mouth in the morning and 1 Tablet before bedtime. 180 Tablet 5 Pantoprazole Sodium 40 MG Oral Tablet Delayed Release (Protonix) Take 1 Tablet by mouth in the morning and 1 Tablet in the evening. 60 Tablet 5 Finasteride 5 MG Oral Tablet (Proscar) Take 1 Tablet by mouth in the morning. 90 Tablet 1 DULoxetine HCl 30 MG Oral Capsule Delayed Release Particles (Cymbalta) Take 1 Capsule by mouth in the morning. 30 Capsule 5 Zoster Vac Recomb Adjuvanted 50 MCG/0.5ML Intramuscular Suspension Reconstituted (Shingrix) Inject 0.5 mL into a large muscle now and repeat dose in 60 to 180 days 1 Each 1 Allopurinol 100 MG Oral Tablet (Zyloprim) Take 2 Tablets by mouth in the morning. 180 Tablet 2 Lantus 100 UNIT/ML Subcutaneous Solution Inject 25 Units under the skin every evening. With dinner 3 Each 5 Current Facility-Administered Medications Medication Dose Route Frequency Provider Last Rate Last Admin Albuterol Sulfate (Proventil) (2.5 MG/3ML) 0.083% inhalation solution 2.5 mg 2.5 mg Nebulizer PRN JenningsWilliam PA-C Albuterol Sulfate (Proventil) (5 MG/ML) 0.5% *conc* inhalation solution 2.5 mg 2.5 mg Nebulizer PRNHsuWilliam PA-C 2.5 mg at 03/20/23 0913 Review of patient's allergies indicates: No Known Allergies OBJECTIVE: BP 122/60 | Pulse 69 | Temp 36 C (96.8 F) | Wt 81.6 kg (179 lb 14.4 oz) | SpO2 99% | BMI 27.91 kg/m | BSA 1.97 m PHYSICAL EXAM: General: alert, healthy, no distress, well developed, pallor+,mild yellowish tint Heart: regular rhythm and rate,2/6 SM base. Lungs: lungs clear to auscultation Extremities: no edema Abdomen: Soft, non-tender, normal bowel sounds, organomegaly Skin--dry Results for orders placed or performed in visit on 11/18/23 URINALYSIS, POINT OF CARE (ENTER/EDIT) Result Value Ref Range Color, Urine Red Yellow or Light Yellow Clarity, Urine Turbid Clear Glucose, Urine Negative Negative mg/dL Bilirubin, Urine Large Negative Ketone, Urine 15 Negative mg/dL Specific [place], Urine 1.015 1.003 - 1.030 Blood, Urine Large Negative pH, Urine 5.0 5.0 - 7.5 units Protein, Urine >=300 Negative mg/dL Urobilinogen, Urine 4.0 0.2 - 1.0 mg/dL Nitrite, Urine Negative Negative Esterase, Urine Large Negative *Note: Due to a large number of results and/or encounters for the requested time period, some results have not been displayed. A complete set of results can be found in Results Review. ASSESSMENT/PLAN: Recurrent gross hematuria (Primary) - URINALYSIS, POINT OF CARE (ENTER/EDIT) - CULTURE, URINE, QUANTITATIVE - MICROSCOPIC EXAM, URINE - UROLOGY REFERRAL OP History of prostate cancer - CULTURE, URINE, QUANTITATIVE - MICROSCOPIC EXAM, URINE - UROLOGY REFERRAL OP History of radiation therapy - CULTURE, URINE, QUANTITATIVE - MICROSCOPIC EXAM, URINE - UROLOGY REFERRAL OP Suprapubic pain, acute - CULTURE, URINE, QUANTITATIVE - MICROSCOPIC EXAM, URINE - UROLOGY REFERRAL OP Liver cell carcinoma (HCC) Pancytopenia (HCC) Anemia, unspecified type Patient with gross hematuria, history of radiation therapy, may need cystoscopy. -await urine culture, increase intake of fluids by 1 additional can per day, if any inc in fatigue increase iron supplement temporarily to twice a day Staff message sent to urologist. If symptoms persist and unable to get in to go to ER for evaluation. Follow Up: Return if symptoms worsen or fail to improve. (This note was completed using the dictation program Fluency Direct. As such, there may be misspellings, word substitutions, or other variations that should not change the essence of the clinical content of this encounter note. If there is need for further clarification, please direct questions to the provider listed above.) Patient and / caregiver verbalize understanding of above instructions and agrees with plan of care. Shelbie Ayers MD 11/18/2023 documented in this encounter Nursing Notes * Velasquez Thomson LPN - 11/18/2023 11:11 AM EST Chief Complaint Patient presents with Acute The pt stated he has had hematuria for 4-5 days with lower ABD discomfort. documented in this encounter Plan of Treatment Upcoming Encounters Date Type Department Care Team (Late st Contact Info) Description 12/13/2023 9:30 AM EST Office Visit Gastroenterology, [facility] [address] [facility] [place] [address] Lamar Tatum CRNP [address] [place] [address] 12/27/2023 2:30 PM EST Imaging Radiology [address] [facility] [place] [address] 01/13/2024 4:20 PM EST Office Visit General Internal Medicine [facility] [address] [place] [address] Joaquin Snider PA-C [address] [facility] [place] [address] 01/20/2024 4:00 PM EST Office Visit Hematology/Oncology [facility] [address] [facility] [place] [address] Jennifer Ramires MD [address] [facility] [place] [address] 03/13/2024 2:00 PM EDT Office Visit Dermatology [facility] [address] [facility] [place] [address] Francisco Watson MD [address] [facility] [place] [address] 06/10/2024 4:00 PM EDT Office Visit Urology, [facility] [address] [facility] [place] [address] Frank Peraza MD [address] [facility] [address] [place] [address] 08/20/2024 10:15 AM EDT Office Visit Ophthalmology, [facility] [address] [facility] [place] [address] Cody Gonzalez DO [address] [place] [phone] Pending Results Name Type Priority Associated Diagnoses Date /Time CULTURE, URINE, QUANTITATIVE Lab Routine Recurrent gross hematuria History of prostate cancer History of radiation therapy Suprapubic pain, acute 11/18/2023 11:46 AM EST Scheduled Procedures Name Priority Associated Diagnoses Date/Ti me COLONOSCOPY FLEXIBLE PROXIMAL DIAGNOSTIC Recall History of colonic polyps Portal hypertensive gastropathy (HCC) ESOPHAGOGASTRODUODENOSCOPY ( EGD), FLEXIBLE, TRANSORAL, DIAGNOSTIC Recall History of colonic polyps Portal hypertensive gastropathy (HCC) Scheduled Referrals Name Type Priority Associated Diagnoses Orde r Schedule UROLOGY REFERRAL OP Referral Within 3 day s (urgent) Recurrent gross hematuria History of prostate cancer History of radiation therapy Suprapubic pain, acute Ordered: 11/18/2023 Health Maintenance Due Date Last Done Comments Zoster Vaccines (1 of 2) 2000 COVID-19 Vaccine (3 - Pfizer risk series) 04/05/2021 03/08/2021, 02/15/2021 Depression Screening 05/03/2022 05/03/2021 HbA1c 11/27/2023 05/28/2023, 01/03, 10/10/2022, Additional history exists Diabetic Eye Exam 01/17/2024 01/17/2023, , 01/17/2023, Additional history exists CKD PHOS USE SMARTSET 83090 01/28/202401/03, 07/26/2022, 12/05/2021, Additional history exists Diabetic Foot Exam 03/06/2024 03/06/2023, 0 01/03/2022, 03/02/2021, Additional history exists GFR 05/17/2024 11/16/2023, 08/03, 07/24/2023, Additional history exists Albumin/Creatinine Ratio 07/12/2024 023, 10/01/2022, 09/11/2021, Additional history exists COLONOSCOPY-ANNUAL AGES 18-100 08/09/2024 08/09/2023, 11/07/2022, 11/07/2022, Additional history exists CKD HGB USE SMARTSET 23344 11/16/202411/16, 11/16/2023, 09/26/2023, Additional history exists Lipid [...] this encounter Medical Devices Implanted Type Area Collar Runner Device Identifier Shelf Expiration Date Model / Serial / Lot Clareon Iol Aspheric Hydrophobic Acrylic Iol Implanted:Qty: 1 on 04/23/2023 by Cody Gonzalez DO at [facility] Lens Left: Eye 11/12/2025 [id number] / [id number] / Viatorr Tips Endoprosthesis 8-10 Mm X 8cm / 2cm Implanted:Qty: 1 on 10/07/2020 by Go Alvarado MD at [facility] Right: Abdomen 03/03/2023 [id number] / / [id number] Description:Viatorr TIPS End oprosthesis 8-10 mm x 8cm / 2cm, Manufactored by [employer] Syr Pf 2ml Embospheres 100-300 - [id number] Implanted:Qty: 1 on 04/18/2021 by Kevin Lim DO at OR [facility] Left: Abdomen [employer] [id number] 11/25/2023 S220GH / / [id number] Syr Pf 2ml Embospheres 100-300 - [id number] Implanted:Qty: 1 on 03/28/2022 at [facility] [employer] [id number] 08/31/2024 S220GH / / [id number] -[id number] Clareon Iol Aspheric Hydrophobic Acrylic Iol Implanted:Qty: 1 on 04/02/2023 by Cody Gonzalez DO at [facility] Right: Eye JAZMIN 11/12/2025 CNA0T0 / [id number] / documented as of this encounter Procedures Procedure Name Priority Date/Time Associated Diagnosis Comments MICROSCOPIC EXAM, URINE STAT 11/18/2023 11:46 AM EST Recurrent gross hematuria History of prostate cancer History of radiation therapy Suprapubic pain, acute URINALYSIS, POINT OF CARE (ENTER/EDIT) Routine 11/18/2023 Recurrent gross hematuria documented in this encounter Results * (ABNORMAL) MICROSCOPIC EXAM, URINE (11/18/2023 11:46 AM EST) RBC, Urine 50+(A) 0 - 2 /HPF 11/18/2023 12:03 PM EST [facility] 56-02 WBC, Urine 0-2 0 - 2 /HPF 11/18/2023 12:03 PM EST [facility] 56-02 Bacteria, Urine 0-25 0 - 25 /HPF 11/18/2023 12:03 PM EST [facility] 56-02 Urine Urine specimen obtained by clean catch procedure / Unknown Non-blood Collection / Unknown 11/18/2023 11:46 AM EST 11/18/2023 11:46 AM EST Shelbie Ayers MD LAB URINE ORDERABLES [facility] [address] [place] [address] * (ABNORMAL) URINALYSIS, POINT OF CARE (ENTER/EDIT) (11/18/2023) Color, Urine Red Yellow or Light Yellow Clarity, Urine Turbid Clear Glucose, Urine Negative Negative mg/dL Bilirubin, Urine Large Negative Ketone, Urine 15 Negative mg/dL Specific [place], Urine 1.015 1.003 - 1.030 Blood, Urine Large Negative pH, Urine 5.0 5.0 - 7.5 units Protein, Urine >=300 Negative mg/dL Urobilinogen, Urine 4.0 0.2 - 1.0 mg/dL Nitrite, Urine Negative Negative Esterase, Urine Large Negative Urine 11/18/2023 Shelbie Ayers MD LAB POINT OF CARE TE ENTER/EDIT ORDERABLES documented in this encounter Visit Diagnoses Diagnosis Recurrent gross hematuria- Primary History of prostate cancer Personal history of malignant neoplasm of prostate History of radiation therapy Personal history of irradiation, presenting hazards to health Suprapubic pain, acute Abdominal pain, other specified site Liver cell carcinoma (HCC) Malignant neoplasm of liver, primary Pancytopenia (HCC) Other pancytopenia Anemia, unspecified type documented in this encounter Advance Directives Documents on File Type Date Recorded 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 No Full Code 07/22/2014 9:56 PM 07/24/2014 8:18 PM This order reflects the patients wishes and were consensually agreed upon. Question Answer Comments Discussion of Advance Directives occurred with: Patient Does the patient have a Living Will? No Does the patient have Health Care Power of School Laboratory Technician? No Care Teams Patient Resource Coordinator Relationship Specialty Start Date End Date Francisco Cisse MD [address] [place] [address] PCP - General Internal Medicine 09/04/21 documented as of this encounter"
--- OUTSIDE RECORDS SUMMARY | 2023-11-26 12:35 | External Medical Summary | Summary of Care ---
Author Name Unknown Organization [facility] [address] [address] Phone [phone] Care Team Providers Care Supervisor Lamp Shades Name Role Phone Francisco Cisse MD Primary Care Provider + Reason for Visit * Reason Onset Date Comments Med Request 11/12/2023 Encounter Details Date Type Department Care Team (Late st Contact Info) Description 11/12/2023 Telephone General Internal Medicine [facility] [address] [place] [address] Francisco Cisse MD 200 [place] [address] Med Request Allergies No known active allergiesdocumented as of this encounter (statuses as of 11/12/2023) Medications Medication Sig Dispensed Refills Start Date End Date Status Tylenol 325 MG Oral Capsule (Acetaminophen) Take 650 mg by mouth every 8 hours as needed for Pain (fever). 0 Active OneTouch Verio In Vitro Strip (Glucose Blood)Indications:Ty pe 2 diabetes mellitus with hemoglobin A1c goal of less than 7.0% ([facility]) Use to test blood sugars [...] skin every evening. With dinner 0 10/29/2023 Active Hospital, Clinic, or Other Facility Administered [...] as of this encounter (statuses as of 11/12/2023) Active Problems Problem Noted Date Diagnosed Date [...] as of this encounter (statuses as of 11/12/2023) Resolved Problems Problem Noted Date Diagnosed Date [...] as of this encounter (statuses as of 11/12/2023) Immunizations Name Administration Dates Next Due COVID-19 mRNA, LNP-s, No Pre serve, 2-Dose Series ([employer]) 03/08/2021,02/15/2021 HepA Inact/HepB Recomb>=18yrs old 12/04/2019,04/2019,05/20/2019 11/19/2019 PPD 06/18/2017, 3,01/09/2012,06/2011 Pneumococcal Conjugate Vacc, 13 Valent (Prevnar) 05/01/2017 Pneumococcal Polysaccharide PPV23 (Pneumovax) 08/28/2022,10/25/2015,07/14/2012 Season Influenza, Quad, PF, Adjuvanted, 65+ Yrs, IM (FLUAD) 10/07/2020(Deferred: Patient Refused - pt says he already had his shot last month at [facility] Handy Lyons and Mckinley Cobian made aware) [...] drink = 0.6 oz pur e alcohol) 1970 PHQ-2 Answer Date Recorded PHQ Adult Total [...] encounter Miscellaneous Notes * Telephone Encounter - Michelle Roper CPhT [...] Prescriber: PCP Preferred Pharmacy: [facility] [address] [place] [address] Please review and approve if appropriate. Thank you, Sil Roper Arc Cutter [facility] ([facility] (Formerly [facility]) 11/12/2023,11:39 AM documented in this encounter Plan of Treatment Upcoming Encounters Date Type Department Care Team (Late st Contact Info) Description 12/13/2023 9:30 AM EST Office Visit Gastroenterology, [facility] [address] [address] Lamar Tatum CRNP [address] [place] [address] 12/27/2023 2:30 PM EST Imaging Radiology [facility] 1st [facility] [address] [place] [address] 01/13/2024 4:20 PM EST Office Visit General Internal [facility] [address] Joaquin Snider PA-C 200 [facility] [place], [place] [address] 01/20/2024 4:00 PM EST Office Visit Hematology/Oncology [facility] [address] [place] [address] Jennifer Ramires MD 200 [facility] [place] [address] 03/13/2024 2:00 PM EDT Office Visit Dermatology [facility] [address] [facility] [address] [place] [address] Francisco Watson MD [address] [place], [place] [address] 08/20/2024 10:15 AM EDT Office Visit Ophthalmology, [facility] 132 [facility] [place] [address] Cody Gonzalez DO [address] [facility] [facility] [place] [address] Scheduled Procedures Name Priority Associated Diagnoses Date/Ti [...] Additional history exists CKD PHOS USE SMARTSET 88703 01/28/202401/03, 07/26/2022, 12/05/2021, Additional history exists GFR 02/28/2024 08/30/2023, 07/03, 07/12/2023, Additional history exists Diabetic Foot Exam 03/06/2024 03/06/2023, 0 01/03/2022, 03/02/2021, Additional history exists Albumin/Creatinine Ratio 07/12/2024 023, 10/01/2022, 09/11/2021, Additional history exists COLONOSCOPY-ANNUAL AGES 18-100 08/09/2024 08/09/2023, 11/07/2022, 11/07/2022, Additional history exists CKD HGB USE SMARTSET 46569 09/26/202409/26, 09/26/2023, 08/30/2023, Additional history exists Lipid [...] this encounter Medical Devices Implanted Type Area Interchange Agent Device Identifier Shelf Expiration Date Model / Serial / Lot Clareon Iol Aspheric Hydrophobic Acrylic Iol Implanted:Qty: 1 on 04/23/2023 by Cody Gonzalez DO at OR [facility] Lens Left: Eye 11/12/2025 CNA0T0 / [id number] / Viatorr Tips Endoprosthesis 8-10 Mm X 8cm / 2cm Implanted:Qty: 1 on 10/07/2020 by Go Alvarado MD at [facility] Right: Abdomen 03/03/2023 [id number] / / [id number] Description:Viatorr TIPS End oprosthesis 8-10 mm x 8cm / 2cm, Manufactored by [employer] Syr Pf 2ml Embospheres 100-300 - [id number] Implanted:Qty: 1 on 04/18/2021 by Kevin Lim DO at OR [facility] Left: Abdomen [employer] [id number] 11/25/2023 S220GH / / [id number] -[id number] Syr Pf 2ml Embospheres 100-300 - [id number] Implanted:Qty: 1 on 03/28/2022 at [facility] [employer] [id number] 08/31/2024 S220GH / / [id number] -5 Clareon Iol Aspheric Hydrophobic Acrylic Iol Implanted:Qty: 1 on 04/02/2023 by Cody Gonzalez DO at OR [facility] Right: Eye JAZMIN 11/12/2025 CNA0T0 / [id number] / documented as of this encounter Advance Directives Documents on File Type Date Recorded 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 No Full Code 07/22/2014 9:56 PM 07/24/2014 8:18 PM This order reflects the patients wishes and were consensually agreed upon. Question Answer Comments Discussion of Advance Directives occurred with: Patient Does the patient have a Living Will? No Does the patient have Health Care Power of Start Up Specialist? No Care Teams Supervisor Lamp Shades Relationship Specialty Start Date End Date Francisco Cisse MD [address] [place] [address] PCP - General Internal Medicine 09/04/21 documented as of this encounter
--- OUTSIDE RECORDS SUMMARY | 2023-11-26 12:35 | External Medical Summary | Summary of Care ---
Author Name Unknown Organization [facility] Address [address] [place] [place] [address] Phone [phone] Care Team Providers Care Concrete Gun Operator Name Role Phone Francisco Cisse MD Primary Care Provider + Reason for Visit * Reason Onset Date Comments Advice 10/31/2023 Copy of office v isit note. Encounter Details Date Type Department Care Team (Late st Contact Info) Description 10/31/2023 Telephone General Internal Medicine [facility] 200 [facility] [place] [address] Francisco Cisse MD 200 [place] [address] Advice (Copy of office visit note.) Allergies No known active allergiesdocumented as of this encounter (statuses as of 11/05/2023) Medications Medication Sig Dispensed Refills Start Date End Date Status Tylenol 325 MG Oral Capsule (Acetaminophen) Take 650 mg by mouth every 8 hours as needed for Pain (fever). 0 Active OneTouch Verio In Vitro Strip (Glucose Blood)Indications:Ty pe 2 diabetes mellitus with hemoglobin A1c goal of less than 7.0% ([facility]) Use to test blood sugars [...] as of this encounter (statuses as of 11/05/2023) Active Problems Problem Noted Date Diagnosed Date [...] as of this encounter (statuses as of 11/05/2023) Resolved Problems Problem Noted Date Diagnosed Date [...] as of this encounter (statuses as of 11/05/2023) Immunizations Name Administration Dates Next Due COVID-19 mRNA, LNP-s, No Pre serve, 2-Dose Series ([employer]) 03/08/2021,02/15/2021 HepA Inact/HepB Recomb>=18yrs old 12/04/2019,04/2019,05/20/2019 11/19/2019 PPD 06/18/2017, 3,01/09/2012,0306/2011 Pneumococcal Conjugate Vacc, 13 Valent (Prevnar) 05/01/2017 Pneumococcal Polysaccharide PPV23 (Pneumovax) 08/28/2022,10/25/2015,07/14/2012 SEASONAL INFLUENZA, PF, 6 M & Above, IM , (FLULAVAL or FLUZONE) 09/04/2017 Season Influenza, Quad, PF, Adjuvanted, 65+ Yrs, IM (FLUAD) 10/07/2020(Deferred: Patient Refused - pt says he already had his shot last month at [facility] Handy Lyons and Mckinley Cobian made aware) Seasonal Influenza Virus Vac cine, Unspecified Formulation 09/15/2021,09/01/2019,09/04/2017,08/03,09/13/2014,08/10/2013,10/07/20 12,09/03/2011 Seasonal Influenza, Quadriva lent Hd (Fluzone Hd) [...] encounter Miscellaneous Notes * Telephone Encounter - Carlee Obregon OSA - 11/05/2023 9:26 AM EST Printed and faxed to number below * Telephone Encounter - Kevin Rowan OSA - 10/31/2023 5:30 PM EST Caryn with [facility] calling and requesting the most recent office visit note. Note needed forDiabetic supply order. Please fax to: [phone] documented in this encounter Plan of Treatment Upcoming Encounters Date Type Department Care Team (Late st Contact Info) Description 11/13/2023 3:00 PM EST Office Visit Pharmacy, [facility] 200 [facility] [place] [address] Pharmacist2, [facility] [address] [place] [address] 12/13/2023 9:30 AM EST Office Visit Gastroenterology, [facility] [address] [place] [address] Lamar Tatum CRNP 132 [place] [address] 12/27/2023 2:30 PM EST Imaging Radiology [address] [facility] [address] 01/13/2024 4:20 PM EST Office Visit General Internal Medicine [facility] [address] [place] [address] Joaquin Snider PA-C 200 [facility] [place] [address] 01/20/2024 4:00 PM EST Office Visit Hematology/Oncology [facility] [address] [place] [address] Jennifer Ramires MD 200 [facility] [place] [address] 03/13/2024 2:00 PM EDT Office Visit Dermatology [facility] [address] [place] [address] Francisco Watson MD 200 [facility] [place] [address] 08/20/2024 10:15 AM EDT Office Visit Ophthalmology, [facility] 132 [facility] [place] [address] Cody Gonzalez DO 21 [place] [address] Scheduled Procedures Name Priority Associated Diagnoses Date/Ti [...] Depression Screening 05/03/2022 05/03/2021 HbA1c 11/27/2023 05/28/2023, 022 06/2023, 10/10/2022, Additional history exists Diabetic Eye Exam 01/17/2024 01/17/2023, , 01/17/2023, Additional history exists CKD PHOS USE SMARTSET 51809 01/28/202401/03, 07/26/2022, 12/05/2021, Additional history exists GFR 02/28/2024 08/30/2023, 07/03, 07/12/2023, Additional history exists Diabetic Foot Exam 03/06/2024 03/06/2023, 0 01/03/2022, 03/02/2021, Additional history exists Albumin/Creatinine Ratio 07/12/2024 023, 10/01/2022, 09/11/2021, Additional history exists COLONOSCOPY-ANNUAL AGES 18-100 08/09/2024 08/09/2023, 11/07/2022, 11/07/2022, Additional history exists CKD HGB USE SMARTSET 60290 09/26/202409/26, 09/26/2023, 08/30/2023, Additional history exists Lipid [...] this encounter Medical Devices Implanted Type Area Philosophy And Religion Instructor Device Identifier Shelf Expiration Date Model / Serial / Lot Clareon Iol Aspheric Hydrophobic Acrylic Iol Implanted:Qty: 1 on 04/23/2023 by Cody Gonzalez DO at OR [facility] Lens Left: Eye 11/12/2025 CNA0T0 / [id number] / Viatorr Tips Endoprosthesis 8-10 Mm X 8cm / 2cm Implanted:Qty: 1 on 10/07/2020 by Go Alvarado MD at [facility] Right: Abdomen 03/03/2023 [id number] / / [id number] Description:Viatorr TIPS End oprosthesis 8-10 mm x 8cm / 2cm, Manufactored by [employer] Syr Pf 2ml Embospheres 100-300 - [id number] Implanted:Qty: 1 on 04/18/2021 by Kevin Lim DO at OR [facility] Left: Abdomen [employer] [id number] 11/25/2023 S220GH / / [id number] -5 Syr Pf 2ml Embospheres 100-300 - [id number] Implanted:Qty: 1 on 03/28/2022 at [facility] [employer] [id number] 08/31/2024 S220GH / / [id number] -5 Clareon Iol Aspheric Hydrophobic Acrylic Iol Implanted:Qty: 1 on 04/02/2023 by Cody Gonzalez DO at OR [facility] Right: Eye JAZMIN 11/12/2025 CNA0T0 / [id number] / documented as of this encounter Advance Directives Documents on File Type Date Recorded Patient Advertising Display Rotator Expl anation Advance Directives and Living Will 12/11/2022 ADVANCE DIRECTIVE / LIVING WILL LIVING WILL Power of Foreign Languages Department Chair 12/11/2022 POWER OF A TTORNEY Latest Code [...] the patient have Health Care Power of Foreign Languages Department Chair? No Full Code 07/22/2014 9:56 PM 07/24/2014 8:18 PM This order reflects the patients wishes and were consensually agreed upon. Question Answer Comments Discussion of Advance Directives occurred with: Patient Does the patient have a Living Will? No Does the patient have Health Care Power of Foreign Languages Department Chair? No Care Teams Concrete Gun Operator Relationship Specialty Start Date End Date Francisco Cisse MD 200 [place] [address] PCP - General Internal Medicine 09/04/21 documented as of this encounter
--- OUTSIDE RECORDS SUMMARY | 2023-11-26 12:35 | External Medical Summary | Summary of Care ---
Author Name Unknown Organization [facility] Address [address] [facility] [address] Phone [phone] Care Team Providers Care It Application Architect Name Role Phone Francisco Cisse MD Primary Care Provider + Reason for Visit * Reason Onset Date Comments Appointment 10/14/2023 Encounter Details Date Type Department Care Team (Late st Contact Info) Description 10/14/2023 Telephone General Internal Medicine [facility] 200 [facility] [place] [address] Francisco Cisse MD 200 [place] [address] Appointment (/) Allergies No known active allergiesdocumented as of this encounter (statuses as of 10/17/2023) Medications Medication Sig Dispensed Refills Start Date End Date Status Tylenol 325 MG Oral Capsule (Acetaminophen) Take 650 mg by mouth every 8 hours as needed for Pain (fever). 0 Active OneTouch Verio In Vitro Strip (Glucose Blood)Indications:Ty pe 2 diabetes mellitus with hemoglobin A1c goal of less than 7.0% ([facility]) Use to test blood sugars 3 times [...] the morning. 180 Tablet 3 07/30/2023 Active Allopurinol 100 MG Oral Tablet (Zyloprim)Indication s:Gout of big toe Take 2 Tablets by mouth in the morning. 180 Tablet 2 07/30/2023 Active Lantus 100 UNIT/ML Subcutaneous Solution Inject 22 Units under the skin every evening. With dinner 0 07/01/2023 Active oxygen IN GAS Use 2 L/min(Oxygen) [...] 180 days 1 Each 1 10/11/2023 Active Hospital, Clinic, or Other Facility Administered [...] as of this encounter (statuses as of 10/17/2023) Active Problems Problem Noted Date Diagnosed Date [...] as of this encounter (statuses as of 10/17/2023) Resolved Problems Problem Noted Date Diagnosed Date [...] as of this encounter (statuses as of 10/17/2023) Immunizations Name Administration Dates Next Due COVID-19 mRNA, LNP-s, No Pre serve, 2-Dose Series ([employer]) 03/08/2021,02/15/2021 HepA Inact/HepB Recomb>=18yrs old 12/04/2019,04/2019,05/20/2019 11/19/2019 PPD 06/18/2017, 3,01/09/2012,06/2011 Pneumococcal Conjugate Vacc, 13 Valent (Prevnar) 05/01/2017 Pneumococcal Polysaccharide PPV23 (Pneumovax) 08/28/2022,10/25/2015,07/14/2012 SEASONAL INFLUENZA, PF, 6 M & Above, IM , (FLULAVAL or FLUZONE) 09/04/2017 Season Influenza, Quad, PF, Adjuvanted, 65+ Yrs, IM (FLUAD) 10/07/2020(Deferred: Patient Refused - pt says he already had his shot last month at [facility] Handy Lyons and Mckinley Cobian [...] 05/03/2021 Hunger Vital Sign Answer Date Recorded Worried About Running Out of Food in the Last Ye ar Never true 10/22/2019 Ran Out of Food in the Last Year Never true 10/22/2019 Sex and Gender Information Value Date Recorded [...] Telephone Encounter - Carlee Obregon OSA - 10/17/2023 10:56 AM EST Several attempts Letter sent * Telephone Encounter - Carlee Obregon OSA - 10/16/2023 1:05 PM EST Lmom 10/16 2nd attempt * Telephone Encounter - Carlee Obregon OSA - 10/14/2023 1:00 PM EST My g sent 10/14 * Telephone Encounter - Petra Obregon OSA - 10/14/2023 8:45 AM EST Pt needs to schedule the Following appt : Physical Therapy. Associated Diagnoses Closed fracture of twelfth thoracic vertebra with routine healing, unspecified fracture morphology,subsequent encounter [S22.470J] Please contact pt to schedule appointment Thank You documented in this encounter Plan of Treatment Upcoming Encounters Date Type Department Care Team (Late st Contact Info) Description 11/13/2023 3:00 PM EST Office Visit Pharmacy, [facility] [address] [place] [address] Pharmacist2, [facility] 200 [facility] [place] [address] 12/13/2023 9:30 AM EST Office Visit Gastroenterology, [facility] 132 [facility] [place] [address] Lamar Tatum CRNP 132 [facility] [place] [address] 12/27/2023 2:30 PM EST Imaging Radiology [facility] 1st [facility] 132 [facility] [place] [address] 01/13/2024 4:20 PM EST Office Visit General Internal Medicine [facility] [address] [place] [address] Joaquin Snider PA-C 200 [facility] [place] [address] 01/20/2024 4:00 PM EST Office Visit Hematology/Oncology [facility] [address] [place] [address] Jennifer Ramires MD 200 [facility] [place] [address] 03/13/2024 2:00 PM EDT Office Visit Dermatology [facility] [address] [place] [address] Francisco Watson MD 200 [facility] [place] [address] 06/11/2024 10:30 AM EDT Office Visit Ophthalmology, [facility] 132 [facility] [place] [address] Cody Gonzalez, DO [address] [place] [address] Scheduled Procedures Name Priority Associated Diagnoses Date/Ti [...] Additional history exists CKD PHOS USE SMARTSET 45445 01/28/202401/03, 07/26/2022, 12/05/2021, Additional history exists GFR 02/28/2024 08/30/2023, 07/03, 07/12/2023, Additional history exists Diabetic Foot Exam 03/06/2024 03/06/2023, 0 01/03/2022, 03/02/2021, Additional history exists Albumin/Creatinine Ratio 07/12/2024 023, 10/01/2022, 09/11/2021, Additional history exists COLONOSCOPY-ANNUAL AGES 18-100 08/09/2024 08/09/2023, 11/07/2022, 11/07/2022, Additional history exists CKD HGB USE SMARTSET 21567 09/26/202409/26, 09/26/2023, 08/30/2023, Additional history exists Lipid [...] this encounter Medical Devices Implanted Type Area Machine Room Operator Device Identifier Shelf Expiration Date Model / Serial / Lot Clareon Iol Aspheric Hydrophobic Acrylic Iol Implanted:Qty: 1 on 04/23/2023 by Cody Gonzalez DO at OR [facility] Lens Left: Eye 11/12/2025 CNA0T0 / [id number] / Viatorr Tips Endoprosthesis 8-10 Mm X 8cm / 2cm Implanted:Qty: 1 on 10/07/2020 by Go Alvarado MD at [facility] Right: Abdomen 03/03/2023 [id number] / / [id number] Description:Viatorr TIPS End oprosthesis 8-10 mm x 8cm / 2cm, Manufactored by [employer] Syr Pf 2ml Embospheres 100-300 - [id number] Implanted:Qty: 1 on 04/18/2021 by Kevin Lim DO at OR [facility] Left: Abdomen [employer] [id number] 11/25/2023 S220GH / / [id number] -5 Syr Pf 2ml Embospheres 100-300 - [id number] Implanted:Qty: 1 on 03/28/2022 at [facility] [employer] [id number] 08/31/2024 S220GH / / [id number] -5 Clareon Iol Aspheric Hydrophobic Acrylic Iol Implanted:Qty: 1 on 04/02/2023 by Cody Gonzalez DO at OR [facility] Right: Eye JAZMIN 11/12/2025 CNA0T0 / [id number] / documented as of this encounter Advance Directives Documents on File Type Date Recorded 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 No Full Code 07/22/2014 9:56 PM 07/24/2014 8:18 PM This order reflects the patients wishes and were consensually agreed upon. Question Answer Comments Discussion of Advance Directives occurred with: Patient Does the patient have a Living Will? No Does the patient have Health Care Power of Public Address Announcer? No Care Teams It Application Architect Relationship Specialty Start Date End Date Francisco Cisse MD 200 [facility] [place] [address] PCP - General Internal Medicine 09/04/21 documented as of this encounter
--- OUTSIDE RECORDS SUMMARY | 2023-11-26 12:35 | External Medical Summary | Summary of Care ---
Author Name Unknown Organization [facility] Address [address] [place] [address] Phone [phone] Care Team Providers Care Lehr Stripper Name Role Phone Francisco Cisse MD Primary Care Provider + Reason for Visit * Reason Onset Date Comments Medication Refill 10/26/2023 Encounter Details Date Type Department Care Team (Late st Contact Info) Description 10/26/2023 Refill General Internal Medicine [facility] 200 [place] [address] Francisco Cisse MD [address] [place] [address] Cirrhosis of liver with ascites, unspecified hepatic cirrhosis type ; GAVE (gastric antral vascular ectasia) Allergies No known active allergiesdocumented as of this encounter (statuses as of 10/28/2023) Medications Medication Sig Dispensed Refills Start Date End Date Status Tylenol 325 MG Oral Capsule (Acetaminophen) Take 650 mg by mouth every 8 hours as needed for Pain (fever). 0 Active OneTouch Verio In Vitro Strip (Glucose Blood)Indications:Ty pe 2 diabetes mellitus with hemoglobin A1c goal of less than 7.0% ([facility]) Use to test blood sugars 3 times [...] as of this encounter (statuses as of 10/28/2023) Active Problems Problem Noted Date Diagnosed Date [...] as of this encounter (statuses as of 10/28/2023) Resolved Problems Problem Noted Date Diagnosed Date [...] as of this encounter (statuses as of 10/28/2023) Immunizations Name Administration Dates Next Due COVID-19 mRNA, LNP-s, No Pre serve, 2-Dose Series ([facility]) 03/08/2021,02/15/2021 HepA Inact/HepB Recomb>=18yrs old 12/04/2019,04/2019,05/20/2019 11/19/2019 PPD 06/18/2017, 3,01/09/2012,06/2011 Pneumococcal Conjugate Vacc, 13 Valent (Prevnar) 05/01/2017 Pneumococcal Polysaccharide PPV23 (Pneumovax) 08/28/2022,10/25/2015,07/14/2012 SEASONAL INFLUENZA, PF, 6 M & Above, IM , (FLULAVAL or FLUZONE) 09/04/2017 Season Influenza, Quad, PF, Adjuvanted, 65+ Yrs, IM (FLUAD) 10/07/2020(Deferred: Patient Refused - [facility] made aware) [...] encounter Miscellaneous Notes * Telephone Encounter - Milka Torres RPh - 10/28/2023 8:45 AM ESTRefused Prescriptions: Disp Refills Furosemide 20 MG Oral Tablet (Lasix) 180 Ta*3 Sig: Take 2 Tablets by mouth in the morning.Refused By: MILKA TORRES for Refusal: Too soon Pantoprazole Sodium 40 MG Oral Tablet Yokasta*60 Tab*5 Sig: Take 1 Tablet by mouth in the morning and 1 Tablet in the evening.Refused By: MILKA TORRES for Refusal: Too soon DULoxetine HCl 30 MG Oral Capsule Delayed *30 Cap*5 Sig: Take 1 Capsule by mouth in the morning.Refused By: MILKA TORRES for Refusal: Too soon documented in this encounter Plan of Treatment Upcoming Encounters Date Type Department Care Team (Late st Contact Info) Description 11/13/2023 3:00 PM EST Office Visit Pharmacy, [facility] [address] [place] [address] Pharmacist2, [facility] [address] [place] [address] [place] [address] 12/13/2023 9:30 AM EST Office Visit Gastroenterology, [facility] 132 [facility] [place] [address] Lamar Tatum CRNP 132 [facility] [place] [address] 12/27/2023 2:30 PM EST Imaging Radiology [facility] [address] [facility] [place] [address] 01/13/2024 4:20 PM EST Office Visit General Internal Medicine [facility] [address] [place] [address] Joaquin Snider PA-C [address] [place] [address] 01/20/2024 4:00 PM EST Office Visit Hematology/Oncology [facility] [address] [place] [address] Jennifer Ramires MD [address] [place] [address] 03/13/2024 2:00 PM EDT Office Visit Dermatology [facility] [address] [place] [address] Francisco Watson MD [facility] [address] 06/11/2024 10:30 AM EDT Office Visit Ophthalmology, [facility] 132 [facility] [place] [address] Cody Gonzalez, DO [facility] [place] [address] Scheduled Procedures Name Priority Associated Diagnoses Date/Ti [...] Additional history exists CKD PHOS USE SMARTSET 23151 01/28/202401/03, 07/26/2022, 12/05/2021, Additional history exists GFR 02/28/2024 08/30/2023, 07/03, 07/12/2023, Additional history exists Diabetic Foot Exam 03/06/2024 03/06/2023, 0 01/03/2022, 03/02/2021, Additional history exists Albumin/Creatinine Ratio 07/12/2024 023, 10/01/2022, 09/11/2021, Additional history exists COLONOSCOPY-ANNUAL AGES 18-100 08/09/2024 08/09/2023, 11/07/2022, 11/07/2022, Additional history exists CKD HGB USE SMARTSET 86443 09/26/202409/26, 09/26/2023, 08/30/2023, Additional history exists Lipid [...] this encounter Medical Devices Implanted Type Area Pigs Feet Finisher Device Identifier Shelf Expiration Date Model / Serial / Lot Clareon Iol Aspheric Hydrophobic Acrylic Iol Implanted:Qty: 1 on 04/23/2023 by Cody Gonzalez DO at OR [facility] Lens Left: Eye 11/12/2025 [id number] / [id number] / Viatorr Tips Endoprosthesis 8-10 Mm X 8cm / 2cm Implanted:Qty: 1 on 10/07/2020 by Go Alvarado MD at [facility] Right: Abdomen 03/03/2023 [id number] / / [id number] Description:Viatorr TIPS End oprosthesis 8-10 mm x 8cm / 2cm, Manufactored by [employer] Syr Pf 2ml Embospheres 100-300 - [id number] Implanted:Qty: 1 on 04/18/2021 by Kevin Lim DO at OR [facility] Left: Abdomen [employer] [id number] 11/25/2023 S220GH / / [id number] Syr Pf 2ml Embospheres 100-300 - [id number] Implanted:Qty: 1 on 03/28/2022 at [facility] 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 No Full Code 07/22/2014 9:56 PM 07/24/2014 8:18 PM This order reflects the patients wishes and were consensually agreed upon. Question Answer Comments Discussion of Advance Directives occurred with: Patient Does the patient have a Living Will? No Does the patient have Health Care Power of Armored Service Technician? No Care Teams Lehr Stripper Relationship Specialty Start Date End Date Francisco Cisse MD [address] [place] [address] PCP - General Internal Medicine 09/04/21 documented as of this encounter
--- OUTSIDE RECORDS SUMMARY | 2023-11-26 12:35 | External Medical Summary | Summary of Care ---
Author Name Unknown Organization [facility] Address [address] [facility] [address] Phone [phone] Care Team Providers Care Sponge Diver Name Role Phone Francisco Cisse MD Primary Care Provider + Reason for Visit * Reason Onset Date Comments Appointment 10/14/2023 Encounter Details Date Type Department Care Team (Late st Contact Info) Description 10/14/2023 Telephone General Internal Medicine [facility] 200 [place] [address] Francisco Cisse MD 200 [place] [address] Appointment (/) Allergies No known active allergiesdocumented as of this encounter (statuses as of 10/14/2023) Medications Medication Sig Dispensed Refills Start Date End Date Status Tylenol 325 MG Oral Capsule (Acetaminophen) Take 650 mg by mouth every 8 hours as needed for Pain (fever). 0 Active OneTouch Verio In Vitro Strip (Glucose Blood)Indications:Ty pe 2 diabetes mellitus with hemoglobin A1c goal of less than 7.0% ([facility]) Use to test blood sugars [...] as of this encounter (statuses as of 10/14/2023) Active Problems Problem Noted Date Diagnosed Date [...] as of this encounter (statuses as of 10/14/2023) Resolved Problems Problem Noted Date Diagnosed Date [...] as of this encounter (statuses as of 10/14/2023) Immunizations Name Administration Dates Next Due COVID-19 mRNA, LNP-s, No Pre serve, 2-Dose Series ([employer]) 03/08/2021,02/15/2021 HepA Inact/HepB Recomb>=18yrs old 12/04/2019,04/2019,05/20/2019 11/19/2019 PPD 06/18/2017, 3,01/09/2012,06/2011 Pneumococcal Conjugate Vacc, 13 Valent (Prevnar) 05/01/2017 Pneumococcal Polysaccharide PPV23 (Pneumovax) 08/28/2022,10/25/2015,07/14/2012 SEASONAL INFLUENZA, PF, 6 M & Above, IM , (FLULAVAL or FLUZONE) 09/04/2017 Season Influenza, Quad, PF, Adjuvanted, 65+ Yrs, IM (FLUAD) 10/07/2020(Deferred: Patient Refused - pt says he already had his shot last month at [facility] Handy Lyons and Mckinley Cobian made [...] with routine healing, unspecified fracture morphology,subsequent encounter [S22.088D] Please contact pt to schedule appointment Thank You documented in this encounter Plan of Treatment Upcoming Encounters Date Type Department Care Team (Late st Contact Info) Description 11/13/2023 3:00 PM EST Office Visit Pharmacy, [facility] 200 [facility] [place] [address] Pharmacist2, [facility] 200 [facility] [place] [address] 12/13/2023 9:30 AM EST Office Visit Gastroenterology, [facility] [address] [place] [address] Lamar Tatum CRNP [address] [place] [address] 12/27/2023 2:30 PM EST Imaging Radiology [facility] 1st [facility] [address] [place] [address] 01/13/2024 4:20 PM EST Office Visit General Internal Medicine [facility] [address] [place] [address] Joaquin Snider PA-C 200 [facility] [place] [address] 01/20/2024 4:00 PM EST Office Visit Hematology/Oncology [facility] 200 [facility] [place] [address] Jennifer Ramires MD 200 [facility] [place] [address] 03/13/2024 2:00 PM EDT Office Visit Dermatology [facility] 200 [facility] [place] [address] Francisco Watson MD 200 [facility] [place] [address] 06/11/2024 10:30 AM EDT Office Visit Ophthalmology, [facility] [address] [place] [address] Cody Gonzalez DO [facility] [place] [address] Scheduled Procedures Name Priority Associated Diagnoses Date/Ti [...] Additional history exists CKD PHOS USE SMARTSET 18330 01/28/202401/03, 07/26/2022, 12/05/2021, Additional history exists GFR 02/28/2024 08/30/2023, 07/03, 07/12/2023, Additional history exists Diabetic Foot Exam 03/06/2024 03/06/2023, 0 01/03/2022, 03/02/2021, Additional history exists Albumin/Creatinine Ratio 07/12/2024 023, 10/01/2022, 09/11/2021, Additional history exists COLONOSCOPY-ANNUAL AGES 18-100 08/09/2024 08/09/2023, 11/07/2022, 04/12/2022, Additional history exists CKD HGB USE SMARTSET 68018 09/26/202409/26, 09/26/2023, 08/30/2023, Additional history exists Lipid Panel 01/28/2028 01/28/2023, 11/02, 08/15/2020, Additional history exists DTaP,Tdap,and Td Vaccines (3 - Td or Tdap) 09/28/2032 09/28/2022, 02/12/2011, 12/19/1999 Pneumococcal Vaccine: 65+ Years Completed 08/28/2022, 05/01/2017, 10/25/2015, Additional history exists COLONOSCOPY-EVERY 3 YRS AGES 18-100 Discontinued 08/09/2023, 11/07/2022, 04/12/2022, Additional history exists COLONOSCOPY-EVERY 5 YRS AGES 18-100 Discontinued 08/09/2023, 11/07/2022, 04/12/2022, Additional history exists Influenza Vaccine (FLU shot) Completed 10/11/2023, 09/15/2021, 09/15/2021, Additional history exists GARDASIL-HPV IMMUNIZATION SERIES Aged Out No longer eligible based on patient's age to complete this topic MENINGOCOCCAL (MENACTRA/MENVEO) Aged Out No longer eligible based on patient's age to complete this topic documented as of this encounter Medical Devices Implanted Type Area Signaler Device Identifier Shelf Expiration Date Model / Serial / Lot Clareon Iol Aspheric Hydrophobic Acrylic Iol Implanted:Qty: 1 on 04/23/2023 by Cody Gonzalez DO at OR [facility] Lens Left: Eye 11/12/2025 CNA0T0 / [id number] / Viatorr Tips Endoprosthesis 8-10 Mm X 8cm / 2cm Implanted:Qty: 1 on 10/07/2020 by Go Alvarado MD at [facility] Right: Abdomen 03/03/2023 [id number] / / [id number] Description:Viatorr TIPS End oprosthesis 8-10 mm x 8cm / 2cm, Manufactored by [employer] Syr Pf 2ml Embospheres 100-300 - [id number] Implanted:Qty: 1 on 04/18/2021 by Kevin Lim DO at OR [facility] Left: Abdomen [employer] [id number] 11/25/2023 S220GH / / [id number] -[id number] Syr Pf 2ml Embospheres 100-300 - [id number] Implanted:Qty: 1 on 03/28/2022 at [facility] [employer] [id number] 08/31/2024 S220GH / / [id number] -5 Clareon Iol Aspheric Hydrophobic Acrylic Iol Implanted:Qty: 1 on 04/02/2023 by Cody Gonzalez DO at OR [facility] Right: Eye JAZMIN 11/12/2025 CNA0T0 / [id number] / documented as of this encounter Advance Directives Documents on File Type Date Recorded 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 No Full Code 07/22/2014 9:56 PM 07/24/2014 8:18 PM This order reflects the patients wishes and were consensually agreed upon. Question Answer Comments Discussion of Advance Directives occurred with: Patient Does the patient have a Living Will? No Does the patient have Health Care Power of [employer]? No Care Teams Sponge Diver Relationship Specialty Start Date End Date Francisco Cisse MD 200 [place] [address] PCP - General Internal Medicine 09/04/21 documented as of this encounter
--- OUTSIDE RECORDS SUMMARY | 2023-11-26 12:35 | External Medical Summary | Summary of Care ---
Author Name Unknown Organization [facility] Address [address] [facility] [address] Phone [phone] Care Team Providers Care Book Cutter Name Role Phone Francisco Cisse MD Primary Care Provider + Reason for Visit * Reason Onset Date Comments FYI 07/17/2023 Encounter Details Date Type Department Care Team (Late st Contact Info) Description 07/17/2023 Telephone General Internal Medicine [facility] 200 [facility] [place] [address] Francisco Cisse MD 200 [place] [address] FYI Allergies No known active allergiesdocumented as of this encounter (statuses as of 10/16/2023) Medications Medication Sig Dispensed Refills Start Date End Date Status Tylenol 325 MG Oral Capsule (Acetaminophen) Take 650 mg by mouth every 8 hours as needed for Pain (fever). 0 Active OneTouch Verio In Vitro Strip (Glucose Blood)Indications:Ty pe 2 diabetes mellitus with hemoglobin A1c goal of less than 7.0% ([facility]) Use to test blood sugars [...] fracture of twelfth thoracic vertebra, initial encounter ([facility]) Take 1 Tablet by mouth every 6 hours as needed for Pain, Severe. 28 Tablet 0 07/12/2023 Active Hospital, Clinic, or Other Facility Administered [...] as of this encounter (statuses as of 10/16/2023) Active Problems Problem Noted Date Diagnosed Date [...] as of this encounter (statuses as of 10/16/2023) Resolved Problems Problem Noted Date Diagnosed Date [...] as of this encounter (statuses as of 10/16/2023) Immunizations Name Administration Dates Next Due COVID-19 mRNA, LNP-s, No Pre serve, 2-Dose Series ([employer]) 03/08/2021,02/15/2021 HepA Inact/HepB Recomb>=18yrs old 12/04/2019,04/2019,05/20/2019 11/19/2019 PPD 06/18/2017, 3,01/09/2012,06/2011 Pneumococcal Conjugate Vacc, 13 Valent (Prevnar) 05/01/2017 Pneumococcal Polysaccharide PPV23 (Pneumovax) 08/28/2022,10/25/2015,07/14/2012 SEASONAL INFLUENZA, PF, 6 M & Above, IM , (FLULAVAL or FLUZONE) 09/04/2017 Season Influenza, Quad, PF, Adjuvanted, 65+ Yrs, IM (FLUAD) 10/07/2020(Deferred: Patient Refused - pt says he already had his shot last month at [facility] Handy Lyons and Mckinley Cobian made aware) Seasonal Influenza Virus Vac cine, Unspecified Formulation 09/15/2021,09/01/2019,09/04/2017,08/03,09/13/2014,08/10/2013,10/07/20 12,09/03/2011 Seasonal Influenza, Quadriva lent Hd, 65+ Yrs [...] encounter Miscellaneous Notes * Telephone Encounter - Lucia Manuel OSA - 07/17/2023 12:29 PM EDT Review chart documented in this encounter Plan of Treatment Upcoming Encounters Date Type Department Care Team (Late st Contact Info) Description 11/13/2023 3:00 PM EST Office Visit Pharmacy, [facility] [address] [facility] [address] [place] [address] Pharmacist2, [facility] [address] [place] [address] 12/13/2023 9:30 AM EST Office Visit Gastroenterology, [facility] [address] [place] [address] Lamar Tatum CRNP [address] [place] [address] 12/27/2023 2:30 PM EST Imaging Radiology [facility]st [facility] [address] [place] [address] 01/13/2024 4:20 PM EST Office Visit General Internal Medicine [facility] [address] [place] [address] Joaquin Snider PA-C [address] [facility] [place] [address] 01/20/2024 4:00 PM EST Office Visit Hematology/Oncology [facility] 200 [facility] [place] [address] Jennifer Ramires MD 200 [facility] [place] [address] 03/13/2024 2:00 PM EDT Office Visit Dermatology [facility] 200 [facility] [place] [address] Francisco Watson MD 200 [facility] [place] [address] 06/11/2024 10:30 AM EDT Office Visit Ophthalmology, [facility] 132 [facility] [place] [address] Cody Gonzalez, DO 21 [facility] [place] [address] Scheduled Procedures Name Priority Associated Diagnoses Date/Ti [...] Additional history exists CKD PHOS USE SMARTSET 93261 01/28/202401/03, 07/26/2022, 12/05/2021, Additional history exists GFR 02/28/2024 08/30/2023, 07/03, 07/12/2023, Additional history exists Diabetic Foot Exam 03/06/2024 03/06/2023, 0 01/03/2022, 03/02/2021, Additional history exists Albumin/Creatinine Ratio 07/12/2024 023, 10/01/2022, 09/11/2021, Additional history exists COLONOSCOPY-ANNUAL AGES 18-100 08/09/2024 08/09/2023, 11/07/2022, 11/07/2022, Additional history exists CKD HGB USE SMARTSET 24992 09/26/202409/26, 09/26/2023, 08/30/2023, Additional history exists Lipid [...] this encounter Medical Devices Implanted Type Area Inspector Balance Wheel Motion Device Identifier Shelf Expiration Date Model / Serial / Lot Clareon Iol Aspheric Hydrophobic Acrylic Iol Implanted:Qty: 1 on 04/23/2023 by Cody Gonzalez DO at OR [facility] Lens Left: Eye 11/12/2025 CNA0T0 / [id number] / Viatorr Tips Endoprosthesis 8-10 Mm X 8cm / 2cm Implanted:Qty: 1 on 10/07/2020 by Go Alvarado MD at [facility] Right: Abdomen 03/03/2023 [id number] / / [id number] Description:Viatorr TIPS End oprosthesis 8-10 mm x 8cm / 2cm, Manufactored by [employer] Syr Pf 2ml Embospheres 100-300 - [id number] Implanted:Qty: 1 on 04/18/2021 by Kevin Lim DO at OR [facility] Left: Abdomen [employer] [id number] 11/25/2023 S220GH / / [id number] -[id number] Syr Pf 2ml Embospheres 100-300 - [id number] Implanted:Qty: 1 on 03/28/2022 at [facility] [employer] [id number] 08/31/2024 S220GH / / [id number] -5 Clareon Iol Aspheric Hydrophobic Acrylic Iol Implanted:Qty: 1 on 04/02/2023 by Cody Gonzalez DO at OR [facility] Right: Eye JAZMIN 11/12/2025 CNA0T0 / [id number] / documented as of this encounter Advance Directives Documents on File Type Date Recorded 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 No Full Code 07/22/2014 9:56 PM 07/24/2014 8:18 PM This order reflects the patients wishes and were consensually agreed upon. Question Answer Comments Discussion of Advance Directives occurred with: Patient Does the patient have a Living Will? No Does the patient have Health Care Power of Machine Operator Helper? No Care Teams Book Cutter Relationship Specialty Start Date End Date Francisco Cisse MD [address] [place] [id number] PCP - General Internal Medicine 09/04/21 documented as of this encounter
--- OUTSIDE RECORDS SUMMARY | 2023-11-26 12:35 | External Medical Summary | Summary of Care ---
Author Name Unknown Organization [facility] Address [address] [facility] [address] Phone [phone] Care Team Providers Care Move Coordinator Name Role Phone Francisco Cisse MD Primary Care Provider + Reason for Visit * Reason Onset Date Comments Appointment 10/14/2023 Encounter Details Date Type Department Care Team (Late st Contact Info) Description 10/14/2023 Telephone General Internal Medicine [facility] 200 [facility] [place] [address] Francisco Cisse MD 200 [place] [address] Appointment (/) Allergies No known active allergiesdocumented [...] goal of less than 7.0% ([facility]) Use to test blood sugars 3 times [...] mRNA, LNP-s, No Pre serve, 2-Dose Series ([employer]) 03/08/2021,02/15/2021 HepA Inact/HepB Recomb>=18yrs old 12/04/2019,04/2019,05/20/2019 11/19/2019 PPD 06/18/2017, 3,01/09/2012,06/2011 Pneumococcal Conjugate Vacc, 13 Valent (Prevnar) 05/01/2017 Pneumococcal Polysaccharide PPV23 (Pneumovax) 08/28/2022,10/25/2015,07/14/2012 SEASONAL INFLUENZA, PF, 6 M & Above, IM , (FLULAVAL or FLUZONE) 09/04/2017 Season Influenza, Quad, PF, Adjuvanted, 65+ Yrs, IM (FLUAD) 10/07/2020(Deferred: Patient Refused - pt says he already had his shot last month at [facility] Lyons and [facility]ian made aware) Seasonal Influenza Virus Vac [...] with routine healing, unspecified fracture morphology,subsequent encounter [S22.089D] Please contact pt to schedule appointment Thank You documented in this encounter Plan of Treatment Upcoming Encounters Date Type Department Care Team (Late st Contact Info) Description 11/13/2023 3:00 PM EST Office Visit Pharmacy, [facility] [place] [address] Pharmacist2, [facility] [address] [place] [address] [address] 12/13/2023 9:30 AM EST Office Visit Gastroenterology, [facility] 132 [facility] [place] [address] Lamar Tatum CRNP 132 [place] [address] 12/27/2023 2:30 PM EST Imaging Radiology [address] 132 [place] [address] 01/13/2024 4:20 PM EST Office Visit General Internal Medicine [facility] [address] [place] [address] Joaquin Snider PA-C 200 [facility] [place] [address] 01/20/2024 4:00 PM EST Office Visit Hematology/Oncology [facility] [address] [place] [address] Jennifer Ramires MD 200 [facility] [place] [address] 03/13/2024 2:00 PM EDT Office Visit Dermatology [facility] [address] [place] [address] Francisco Watson MD 200 [facility] [place] [address] 06/11/2024 10:30 AM EDT Office Visit Ophthalmology, [facility] 132 [place] [address] Cody Gonzalez, DO 21 [facility] [place] [address] Scheduled Procedures Name Priority Associated Diagnoses Date/Ti [...] Additional history exists CKD PHOS USE SMARTSET 26607 01/28/202401/03, 07/26/2022, 12/05/2021, Additional history exists GFR 02/28/2024 08/30/2023, 07/03, 07/12/2023, Additional history exists Diabetic Foot Exam 03/06/2024 03/06/2023, 0 01/03/2022, 03/02/2021, Additional history exists Albumin/Creatinine Ratio 07/12/2024 023, 10/01/2022, 09/11/2021, Additional history exists COLONOSCOPY-ANNUAL AGES 18-100 08/09/2024 08/09/2023, 11/07/2022, 11/07/2022, Additional history exists CKD HGB USE SMARTSET 44447 09/26/202409/26, 09/26/2023, 08/30/2023, Additional history exists Lipid [...] this encounter Medical Devices Implanted Type Area Analog Circuit Designer Device Identifier Shelf Expiration Date Model / Serial / Lot Clareon Iol Aspheric Hydrophobic Acrylic Iol Implanted:Qty: 1 on 04/23/2023 by Cody Gonzalez DO at OR [facility] Lens Left: Eye 11/12/2025 CNA0T0 / [id number] / Viatorr Tips Endoprosthesis 8-10 Mm X 8cm / 2cm Implanted:Qty: 1 on 10/07/2020 by Go Alvarado MD at [facility] Right: Abdomen 03/03/2023 [id number] / / [id number] Description:Viatorr TIPS End oprosthesis 8-10 mm x 8cm / 2cm, Manufactored by [employer] Syr Pf 2ml Embospheres 100-300 - [id number] Implanted:Qty: 1 on 04/18/2021 by Kevin Lim DO at OR [facility] Left: Abdomen [employer] [id number] 11/25/2023 S220GH / / [id number] Syr Pf 2ml Embospheres 100-300 - [id number] Implanted:Qty: 1 on 03/28/2022 at [facility] [employer] [id number] 08/31/2024 S220GH / / [id number] -5 Clareon Iol Aspheric Hydrophobic Acrylic Iol Implanted:Qty: 1 on 04/02/2023 by Cody Gonzalez DO at OR [facility] Right: Eye JAZMIN 11/12/2025 CNA0T0 / [id number] / documented as of this encounter Advance Directives Documents on File Type Date Recorded 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 No Full Code 07/22/2014 9:56 PM 07/24/2014 8:18 PM This order reflects the patients wishes and were consensually agreed upon. Question Answer Comments Discussion of Advance Directives occurred with: Patient Does the patient have a Living Will? No Does the patient have Health Care Power of Dairy And Food Laboratory Assistant? No Care Teams Move Coordinator Relationship Specialty Start Date End Date Francisco Cisse MD 200 [place] [address] PCP - General Internal Medicine 09/04/21 documented as of this encounter
--- OUTSIDE RECORDS SUMMARY | 2023-11-26 12:35 | External Medical Summary | Summary of Care ---
Author Name Unknown Organization [facility] Address [address] [facility] [place] [address] Phone [phone] Care Team Providers Care Mattress Spring Encaser Name Role Phone Francisco Cisse MD Primary Care Provider + Reason for Visit * Reason Onset Date Comments Med Request 11/12/2023 Encounter Details Date Type Department Care Team (Late st Contact Info) Description 11/12/2023 Telephone General Internal Medicine [facility] 200 [facility] [place] [address] Francisco Cisse MD 200 [place] [address] Med Request Allergies No known active allergiesdocumented as of this encounter (statuses as of 11/13/2023) Medications Medication Sig Dispensed Refills Start Date End Date Status Tylenol 325 MG Oral Capsule (Acetaminophen) Take 650 mg by mouth every 8 hours as needed for Pain (fever). 0 Active OneTouch Verio In Vitro Strip (Glucose Blood)Indications:T ype 2 diabetes mellitus with hemoglobin A1c goal of less than 7.0% ([facility]) Use to test blood sugars 3 times [...] Oral Tablet Take by mouth. 0 Act rodeirck Zinc 50 MG Oral Capsule Take 1 [...] as of this encounter (statuses as of 11/13/2023) Active Problems Problem Noted Date Diagnosed Date [...] as of this encounter (statuses as of 11/13/2023) Resolved Problems Problem Noted Date Diagnosed Date [...] as of this encounter (statuses as of 11/13/2023) Immunizations Name Administration Dates Next Due COVID-19 mRNA, LNP-s, No Pre serve, 2-Dose Series ([employer]) 03/08/2021,02/15/2021 HepA Inact/HepB Recomb>=18yrs old 12/04/2019,04/2019,05/20/2019 11/19/2019 PPD 06/18/2017, 3,01/09/2012,0306/2011 Pneumococcal Conjugate Vacc, 13 Valent (Prevnar) 05/01/2017 Pneumococcal Polysaccharide PPV23 (Pneumovax) 08/28/2022,10/25/2015,07/14/2012 Season Influenza, Quad, PF, Adjuvanted, 65+ Yrs, IM (FLUAD) 10/07/2020(Deferred: Patient Refused - [facility]) [...] Prescriber: PCP Preferred Pharmacy: [facility] [id number] Please review and approve if appropriate. Thank you, Sil Roper Line Technician I Centralized Clinical Pharmacy Services (CCPS) (Formerly Telepharmacy) 11/12/2023,11:39 AM documented in this encounter Plan of Treatment Upcoming Encounters Date Type Department Care Team (Late st Contact Info) Description 12/13/2023 9:30 AM EST Office Visit Gastroenterology, [facility] [place] [address] Lamar Tatum CRNP 132 [facility] [place] [address] 12/27/2023 2:30 PM EST Imaging Radiology [address] 132 [facility] [place] [address] 01/13/2024 4:20 PM EST Office Visit General Internal Medicine [facility] 200 [facility] [place] [address] Joaquin Snider PA-C 200 [facility] [place] [address] 01/20/2024 4:00 PM EST Office Visit Hematology/Oncology [facility] 200 [facility] [place] [address] Jennifer Ramires MD 200 [facility] [place] [address] 03/13/2024 2:00 PM EDT Office Visit Dermatology [facility] [address] [place] [address] Francisco Watson MD 200 [facility] [place] [address] 08/20/2024 10:15 AM EDT Office Visit Ophthalmology, [facility] 132 [facility] [place] [address] Cody Gonzalez, DO 21 [facility] [place] [address] Scheduled Procedures Name Priority Associated Diagnoses Date/Ti [...] Additional history exists CKD PHOS USE SMARTSET 44862 01/28/202401/03, 07/26/2022, 12/05/2021, Additional history exists GFR 02/28/2024 08/30/2023, 07/03, 07/12/2023, Additional history exists Diabetic Foot Exam 03/06/2024 03/06/2023, 0 01/03/2022, 03/02/2021, Additional history exists Albumin/Creatinine Ratio 07/12/2024 023, 10/01/2022, 09/11/2021, Additional history exists COLONOSCOPY-ANNUAL AGES 18-100 08/09/2024 08/09/2023, 11/07/2022, 11/07/2022, Additional history exists CKD HGB USE SMARTSET 84444 09/26/202409/26, 09/26/2023, 08/30/2023, Additional history exists Lipid [...] this encounter Medical Devices Implanted Type Area Lock Stitch Channeler Device Identifier Shelf Expiration Date Model / Serial / Lot Clareon Iol Aspheric Hydrophobic Acrylic Iol Implanted:Qty: 1 on 04/23/2023 by Cody Gonzalez DO at OR [facility] Lens Left: Eye 11/12/2025 CNA0T0 / [id number] / Viatorr Tips Endoprosthesis 8-10 Mm X 8cm / 2cm Implanted:Qty: 1 on 10/07/2020 by Go Alvarado MD at [facility] Right: Abdomen 03/03/2023 [id number] / / [id number] Description:Viatorr TIPS End oprosthesis 8-10 mm x 8cm / 2cm, Manufactored by [employer] [place] [employer] Syr Pf 2ml Embospheres 100-300 - [id number] Implanted:Qty: 1 on 04/18/2021 by Kevin Lim DO at OR [facility] Left: Abdomen [employer] [id number] 11/25/2023 S220GH / / [id number] -[id number] Syr Pf 2ml Embospheres 100-300 - [id number] Implanted:Qty: 1 on 03/28/2022 at [facility] [employer] [id number] 08/31/2024 S220GH / / [id number] -5 Clareon Iol Aspheric Hydrophobic Acrylic Iol Implanted:Qty: 1 on 04/02/2023 by Cody Gonzalez DO at [facility] Right: Eye JAZMIN 11/12/2025 CNA0T0 / [id number] / documented as of this encounter Advance Directives Documents on File Type Date Recorded 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 No Full Code 07/22/2014 9:56 PM 07/24/2014 8:18 PM This order reflects the patients wishes and were consensually agreed upon. Question Answer Comments Discussion of Advance Directives occurred with: Patient Does the patient have a Living Will? No Does the patient have Health Care Power of Plant Control Aide? No Care Teams Mattress Spring Encaser Relationship Specialty Start Date End Date Francisco Cisse MD 200 [place] [address] PCP - General Internal Medicine 09/04/21 documented as of this encounter
--- OUTSIDE RECORDS SUMMARY | 2023-11-26 12:35 | External Medical Summary | Summary of Care ---
Author Name Unknown Organization [facility] Address [address] [facility] [address] Phone [phone] Care Team Providers Care Musical Instrument Mechanic Name Role Phone Francisco Cisse MD Primary Care Provider + Reason for Visit * Reason Onset Date Comments Med Request 11/12/2023 Encounter Details Date Type Department Care Team (Late st Contact Info) Description 11/12/2023 Telephone General Internal Medicine [facility] 200 [facility] [place] [address] Francisco Cisse MD 200 [place] [address] Med Request Allergies No known active allergiesdocumented [...] goal of less than 7.0% ([facility]) Use to test blood sugars [...] mRNA, LNP-s, No Pre serve, 2-Dose Series ([employer]) 03/08/2021,02/15/2021 HepA Inact/HepB Recomb>=18yrs old 12/04/2019,04/2019,05/20/2019 11/19/2019 PPD 06/18/2017, 3,01/09/2012,06/2011 Pneumococcal Conjugate Vacc, 13 Valent (Prevnar) 05/01/2017 Pneumococcal Polysaccharide PPV23 (Pneumovax) 08/28/2022,10/25/2015,07/14/2012 Season Influenza, Quad, PF, Adjuvanted, 65+ Yrs, IM (FLUAD) 10/07/2020(Deferred: Patient Refused - pt says he already had his shot last month at [facility] Lyons and [facility]ckin[facility] Cobian [...] Prescriber: PCP Preferred Pharmacy: [facility] [address] [place] [address] Please review and approve if appropriate. Thank you, Sil Roper Cuff Matcher I Centralized Clinical Pharmacy Services (CCPS) (Formerly Telepharmacy) 11/12/2023,11:39 AM documented in this encounter Plan of Treatment Upcoming Encounters Date Type Department Care Team (Late st Contact Info) Description 12/13/2023 9:30 AM EST Office Visit Gastroenterology, [facility] [address] [address] Lamar Tatum CRNP [address] [place] [address] 12/27/2023 2:30 PM EST Imaging Radiology [facility] 132 [place] [address] 01/13/2024 4:20 PM EST Office Visit General Internal Medicine [facility] 200 [facility] [address] Joaquin Snider PA-C 200 [facility] [place], [place] [address] 01/20/2024 4:00 PM EST Office Visit Hematology/Oncology [facility] [address] [place] [address] Jennifer Ramires MD 200 [facility] [place] [address] 03/13/2024 2:00 PM EDT Office Visit Dermatology [facility] 200 [facility] [address] [place] [address] Francisco Watson MD 200 [facility] [address] [place], [place] [address] 08/20/2024 10:15 AM EDT Office Visit Ophthalmology, [facility] 132 [facility] [place] [address] Cody Gonzalez DO 21 [facility] [place] [address] Scheduled Procedures Name Priority Associated Diagnoses Date/Ti [...] Additional history exists CKD PHOS USE SMARTSET 32059 01/28/202401/03, 07/26/2022, 12/05/2021, Additional history exists GFR 02/28/2024 08/30/2023, 07/03, 07/12/2023, Additional history exists Diabetic Foot Exam 03/06/2024 03/06/2023, 0 01/03/2022, 03/02/2021, Additional history exists Albumin/Creatinine Ratio 07/12/2024 023, 10/01/2022, 09/11/2021, Additional history exists COLONOSCOPY-ANNUAL AGES 18-100 08/09/2024 08/09/2023, 11/07/2022, 11/07/2022, Additional history exists CKD HGB USE SMARTSET 65042 09/26/202409/26, 09/26/2023, 08/30/2023, Additional history exists Lipid [...] this encounter Medical Devices Implanted Type Area Payroll Accounting Specialist Device Identifier Shelf Expiration Date Model / Serial / Lot Clareon Iol Aspheric Hydrophobic Acrylic Iol Implanted:Qty: 1 on 04/23/2023 by Cody Gonzalez DO at OR [facility] Lens Left: Eye 11/12/2025 CNA0T0 / [id number] / Viatorr Tips Endoprosthesis 8-10 Mm X 8cm / 2cm Implanted:Qty: 1 on 10/07/2020 by Go Alvarado MD at [facility] Right: Abdomen 03/03/2023 [id number] / / [id number] Description:Viatorr TIPS End oprosthesis 8-10 mm x 8cm / 2cm, Manufactored by [employer] [place] [employer] Syr Pf 2ml Embospheres 100-300 - [id number] Implanted:Qty: 1 on 04/18/2021 by Kevin Lim DO at OR [facility] Left: Abdomen [employer] [id number] 11/25/2023 S220GH / / [id number] -5 Syr Pf 2ml Embospheres 100-300 - [id number] Implanted:Qty: 1 on 03/28/2022 at [facility] [employer] [id number] 08/31/2024 S220GH / / [id number] -5 Clareon Iol Aspheric Hydrophobic Acrylic Iol Implanted:Qty: 1 on 04/02/2023 by Cody Gonzalez DO at OR 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 No Full Code 07/22/2014 9:56 PM 07/24/2014 8:18 PM This order reflects the patients wishes and were consensually agreed upon. Question Answer Comments Discussion of Advance Directives occurred with: Patient Does the patient have a Living Will? No Does the patient have Health Care Power of Meat Packer? No Care Teams Musical Instrument Mechanic Relationship Specialty Start Date End Date Francisco Cisse MD [address] [place] [address] PCP - General Internal Medicine 09/04/21 documented as of this encounter
--- OUTSIDE RECORDS SUMMARY | 2023-11-26 12:35 | External Medical Summary | Summary of Care ---
Author Name Unknown Organization [facility] Address [address] [facility] [address] Phone [phone] Care Team Providers Care Pony Ride Attendant Name Role Phone Francisco Cisse MD Primary Care Provider + Reason for Visit * Reason Onset Date Comments Med Request 11/12/2023 Encounter Details Date Type Department Care Team (Late st Contact Info) Description 11/12/2023 Telephone General Internal Medicine [facility] 200 [facility] [place] [address] Francisco Cisse MD 200 [place] [address] Med Request Allergies No known active allergiesdocumented [...] A1c goal of less than 7.0% ([facility]) Use to test blood sugars 3 times [...] mRNA, LNP-s, No Pre serve, 2-Dose Series ([employer]) 03/08/2021,02/15/2021 HepA Inact/HepB Recomb>=18yrs old 12/04/2019,04/2019,05/20/2019 11/19/2019 PPD 06/18/2017, 3,01/09/2012,06/2011 Pneumococcal Conjugate Vacc, 13 Valent (Prevnar) 05/01/2017 Pneumococcal Polysaccharide PPV23 (Pneumovax) 08/28/2022,10/25/2015,07/14/2012 Season Influenza, Quad, PF, Adjuvanted, 65+ Yrs, IM (FLUAD) 10/07/2020(Deferred: Patient Refused - pt says he already had his shot last month at [facility] Handy Lyons and Mckinley Cobian made [...] encounter Miscellaneous Notes * Addendum Note - Henna Alan LPN [...] Prescriber: PCP Preferred Pharmacy: [facility] [address] [place] [address] Please review and approve if appropriate. Thank you, Sil Roper Sew Out Operator I Centralized Clinical Pharmacy Services (CCPS) (Formerly Telepharmacy) 11/12/2023,11:39 AM documented in this encounter Plan of Treatment Upcoming Encounters Date Type Department Care Team (Late st Contact Info) Description 12/13/2023 9:30 AM EST Office Visit Gastroenterology, [facility] [address] [place] [address] Lamar Tatum CRNP [address] [place] [address] 12/27/2023 2:30 PM EST Imaging Radiology [address] 132 [facility] [place] [address] 01/13/2024 4:20 PM EST Office Visit General Internal Medicine [facility] [address] [place] [address] Joaquin Snider PA-C 200 [facility] [place] [address] 01/20/2024 4:00 PM EST Office Visit Hematology/Oncology [facility] 200 [facility] [place] [address] Jennifer Ramires MD 200 [facility] [place] [address] 03/13/2024 2:00 PM EDT Office Visit Dermatology [facility] [address] [place] [address] Francisco Watson MD 200 [facility] [place] [address] 08/20/2024 10:15 AM EDT Office Visit Ophthalmology, [address] [place] [address] Cody Gonzalez DO [address] [facility] [place] [address] Scheduled Procedures Name Priority Associated Diagnoses Date/Ti [...] Additional history exists CKD PHOS USE SMARTSET 43275 01/28/202401/03, 07/26/2022, 12/05/2021, Additional history exists GFR 02/28/2024 08/30/2023, 07/03, 07/12/2023, Additional history exists Diabetic Foot Exam 03/06/2024 03/06/2023, 0 01/03/2022, 03/02/2021, Additional history exists Albumin/Creatinine Ratio 07/12/2024 023, 10/01/2022, 09/11/2021, Additional history exists COLONOSCOPY-ANNUAL AGES 18-100 08/09/2024 08/09/2023, 11/07/2022, 11/07/2022, Additional history exists CKD HGB USE SMARTSET 78720 09/26/202409/26, 09/26/2023, 08/30/2023, Additional history exists Lipid [...] this encounter Medical Devices Implanted Type Area General Engineer Device Identifier Shelf Expiration Date Model / Serial / Lot Clareon Iol Aspheric Hydrophobic Acrylic Iol Implanted:Qty: 1 on 04/23/2023 by Cody Gonzalez DO at OR [facility] Lens Left: Eye 11/12/2025 CNA0T0 / [id number] 136 / Viatorr Tips Endoprosthesis 8-10 Mm X 8cm / 2cm Implanted:Qty: 1 on 10/07/2020 by Go Alvarado MD at [facility] Right: Abdomen 03/03/2023 [id number] / / [id number] Description:Viatorr TIPS End oprosthesis 8-10 mm x 8cm / 2cm, Manufactored by [employer] Syr Pf 2ml Embospheres 100-300 - [id number] Implanted:Qty: 1 on 04/18/2021 by Kevin Lim DO at OR [facility] Left: Abdomen [employer] [id number] 11/25/2023 S220GH / / [id number] -5 Syr Pf 2ml Embospheres 100-300 - [id number] Implanted:Qty: 1 on 03/28/2022 at [facility] [employer] [id number] 08/31/2024 S220GH / / [id number] -5 Clareon Iol Aspheric Hydrophobic Acrylic Iol Implanted:Qty: 1 on 04/02/2023 by Cody Gonzalez DO at OR [facility] Right: Eye JAZMIN 11/12/2025 CNA0T0 / [id number] / documented as of this encounter Advance Directives Documents on File Type Date Recorded Patient Automat Watcher Expl anation Advance Directives and Living Will 12/11/2022 ADVANCE DIRECTIVE / LIVING WILL LIVING WILL Power of General Service Technician 12/11/2022 POWER OF A TTORNEY [...] the patient have Health Care Power of General Service Technician? No Full Code 07/22/2014 9:56 PM 07/24/2014 8:18 PM This order reflects the patients wishes and were consensually agreed upon. Question Answer Comments Discussion of Advance Directives occurred with: Patient Does the patient have a Living Will? No Does the patient have Health Care Power of General Service Technician? No Care Teams Pony Ride Attendant Relationship Specialty Start Date End Date Francisco Cisse MD 200 [place] [address] PCP - General Internal Medicine 09/04/21 documented as of this encounter
--- OUTSIDE RECORDS SUMMARY | 2023-11-26 12:36 | External Medical Summary | Summary of Care ---
Author Name Unknown Organization [facility] Address [address] [place] [address] Phone [phone] Care Team Providers Care Manager Cost Name Role Phone Francisco Cisse MD Primary Care Provider + Reason for Referral * Precert (Within 10 days (routine)) - Authorized Specialty Diagnoses / Procedures Referred By Chacho fleming Referred To Contact Radiology Diagnoses Hepatocellular carcinoma (HCC) Pre-transplant evaluation for chronic liver disease Procedures MRI LIVER W WO CONTRAST Demian Mancini MD [address] [place] [address] Referral ID Status Reason Start Date Expiration Date V isits Requested Visits Authorized [id number] Authorized 12/23/2023 [id number] Encounter Details Date Type Department Care Team (Late st Contact Info) Description 10/10/2023 Documentation Transplant Clinic, [place] [address] [place] [address] Jocelyne Sykes, RN Pre-transplant evaluation for chronic liver disease*; Hepatocellular carcinoma (HCC) Allergies No known active allergiesdocumented as of this encounter (statuses as of 10/10/2023) Medications Medication Sig Dispensed Refills Start Date End Date Status Tylenol 325 MG Oral Capsule (Acetaminophen) Take 650 mg by mouth every 8 hours as needed for Pain (fever). 0 Active OneTouch Verio In Vitro Strip (Glucose Blood)Indications:Ty pe 2 diabetes mellitus with hemoglobin A1c goal of less than 7.0% ([facility]) Use to test blood sugars 3 times [...] fracture of twelfth thoracic vertebra, initial encounter ([facility]) Take 1 Tablet by mouth every 6 [...] the morning. 30 Capsule 5 09/23/2023 Active Hospital, Clinic, or Other Facility Administered [...] as of this encounter (statuses as of 10/10/2023) Active Problems Problem Noted Date Diagnosed Date [...] as of this encounter (statuses as of 10/10/2023) Resolved Problems Problem Noted Date Diagnosed Date [...] as of this encounter (statuses as of 10/10/2023) Immunizations Name Administration Dates Next Due COVID-19 mRNA, LNP-s, No Pre serve, 2-Dose Series (WEISSENHAUS) 03/08/2021,02/15/2021 HepA Inact/HepB Recomb>=18yrs old 12/04/2019,04/2019,05/20/2019 11/19/2019 PPD 06/18/2017, 3,01/09/2012,06/2011 Pneumococcal Conjugate Vacc, 13 Valent (Prevnar) 05/01/2017 Pneumococcal Polysaccharide PPV23 (Pneumovax) 08/28/2022,10/25/2015,07/14/2012 SEASONAL INFLUENZA, PF, 6 M & Above, IM , (FLULAVAL or FLUZONE) 09/04/2017 Season Influenza, Quad, PF, Adjuvanted, 65+ Yrs, IM (FLUAD) 10/07/2020(Deferred: Patient Refused - pt says he already had his shot last month at [facility] Handy Lyons and Mckinley Cobian made aware) [...] or making decisions? 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 He is s/p bland embolization by Dr. Lim on 03/28/22. Case was reviewed by the tumor board on 10/02/23. Tumor board consists of transplant surgeons, IR, Radiologists, Hepatologists, and Oncologists. Imaging from MRI of the liver obtained on 09/26/23 was reviewed and showed no signs of viable tumor. Recommendation of the tumor board is to repeat imaging in three months. Mr. Hale is currently listed active on the liver transplant waitlist with a HCC exception score. Latest Reference Range & Units 02/18/23 12:26 04/16/23 16:46 08/30/23 11:23 Alpha-Fetoprotein Tumor Marker 0.0 - 8.3 ng/mL 1.7 1.2 <1.8 10/10/23 at 1030- Outgoing call to Mr. Hale to review his recent MRI. Discussed that his case was reviewed at the tumor board meeting and no signs of viable tumor were noted on his recent imaging. It is the recommendation of the tumor board that he have repeat imaging in three months with bloodwork.Orders placed. documented in this encounter Plan of Treatment Upcoming Encounters Date Type Department Care Team (Late st Contact Info) Description 10/11/2023 2:00 PM EST Office Visit General Internal Medicine [facility] [address] [phone] Joaquin Snider PA-C [address] [place] [address] [place] [address] 11/13/2023 3:00 PM EST Office Visit Pharmacy, [facility] [address] [place] [address] Pharmacist2, [facility] [address] [place] [address] 12/13/2023 9:30 AM EST Office Visit Gastroenterology, [facility] [address] [facility] [address] Lamar Tatum CRNP 132 [place] [address] 01/20/2024 4:00 PM EST Office Visit Hematology/Oncology [facility] [address] [place] [address] Jennifer Ramires MD [address] [place] [address] 03/13/2024 2:00 PM EDT Office Visit Dermatology [facility] [address] [place] [address] Francisco Watson MD [address] [place] [address] 06/11/2024 10:30 AM EDT Office Visit Ophthalmology, [facility] 132 [place] [address] Cody Gonzalez DO [address] [facility] [place] [address] Scheduled Orders Name Type Priority Associated Diagnoses Orde r Schedule MRI LIVER W WO CONTRAST Medical Imaging Routine Hepatocellular carcinoma (HCC) Pre-transplant evaluation for chronic liver disease Expected: 12/23/2023, Expires: 11/09/2024 ALPHA-FETOPROTEIN TUMOR MARKER Lab Routine Hepatocellular carcinoma (HCC) Pre-transplant evaluation for chronic liver disease Expected: 12/23/2023 (Approximate), Expires: 01/06/2024 COMPREHENSIVE METABOLIC PANEL Lab Routine Hepatocellular carcinoma (HCC) Pre-transplant evaluation for chronic liver disease Expected: 12/23/2023 (Approximate), Expires: 01/06/2024 PT INR Lab Routine Hepatocellular carcinoma (HCC) Pre-transplant evaluation for chronic liver disease Expected: 12/23/2023 (Approximate), Expires: 01/06/2024 Scheduled Procedures Name Priority Associated Diagnoses Date/Ti me COLONOSCOPY FLEXIBLE PROXIMAL DIAGNOSTIC Recall History of colonic polyps Portal hypertensive gastropathy (HCC) ESOPHAGOGASTRODUODENOSCOPY ( EGD), FLEXIBLE, TRANSORAL, DIAGNOSTIC Recall History of colonic polyps Portal hypertensive gastropathy (HCC) Health Maintenance Due Date Last Done Comments Zoster Vaccines (1 of 2) 2000 COVID-19 Vaccine (3 - Pfizer risk series) 04/05/2021 03/08/2021, 02/15/2021 Depression Screening 05/03/2022 05/03/2021 Influenza Vaccine (FLU shot) (#1) 2023 09/15/2021, 09/15/2021, 09/30/2020, Additional history exists HbA1c 11/27/2023 05/28/2023, 01/03, 10/10/2022, Additional history exists Diabetic Eye Exam 01/17/2024 01/17/2023, , 01/17/2023, Additional history exists CKD PHOS USE SMARTSET 54513 01/28/202401/03, 07/26/2022, 12/05/2021, Additional history exists GFR 02/28/2024 08/30/2023, 07/03, 07/12/2023, Additional history exists Diabetic Foot Exam 03/06/2024 03/06/2023, 0 01/03/2022, 03/02/2021, Additional history exists Albumin/Creatinine Ratio 07/12/2024 023, 10/01/2022, 09/11/2021, Additional history exists COLONOSCOPY-ANNUAL AGES 18-100 08/09/2024 08/09/2023, 11/07/2022, 04/12/2022, Additional history exists CKD HGB USE SMARTSET 32308 09/26/202409/26, 09/26/2023, 08/30/2023, Additional history exists Lipid Panel 01/28/2028 01/28/2023, 11/02, 08/15/2020, Additional history exists DTaP,Tdap,and Td Vaccines (3 - Td or Tdap) 09/28/2032 09/28/2022, 02/12/2011, 12/19/1999 Pneumococcal Vaccine: 65+ Years Completed 08/28/2022, 05/01/2017, 10/25/2015, Additional history exists COLONOSCOPY-EVERY 3 YRS AGES 18-100 Discontinued 08/09/2023, 11/07/2022, 04/12/2022, Additional history exists COLONOSCOPY-EVERY 5 YRS AGES 18-100 Discontinued 08/09/2023, 11/07/2022, 04/12/2022, Additional history exists GARDASIL-HPV IMMUNIZATION SERIES Aged Out No longer eligible based on patient's age to complete this topic MENINGOCOCCAL (MENACTRA/MENVEO) Aged Out No longer eligible based on patient's age to complete this topic documented as of this encounter Medical Devices Implanted Type Area Procurement Representative Device Identifier Shelf Expiration Date Model / Serial / Lot Clareon Iol Aspheric Hydrophobic Acrylic Iol Implanted:Qty: 1 on 04/23/2023 by Cody Gonzalez DO at OR [facility] Lens Left: Eye 11/12/2025 CNA0T0 / [id number] / Viatorr Tips Endoprosthesis 8-10 Mm X 8cm / 2cm Implanted:Qty: 1 on 10/07/2020 by Go Alvarado MD at [facility] Right: Abdomen 03/03/2023 [id number] / / [id number] Description:Viatorr TIPS End oprosthesis 8-10 mm x 8cm / 2cm, Manufactored by [employer] Syr Pf 2ml Embospheres 100-300 - [id number] Implanted:Qty: 1 on 04/18/2021 by Kevin Lim DO at OR [facility] Left: Abdomen [employer] [id number] 11/25/2023 S220GH / / [id number] -[id number] Syr Pf 2ml [facility] 100-300 - [id number] Implanted:Qty: 1 on 03/28/2022 at [facility] [employer] [id number] 08/31/2024 S220GH / / [id number] -[id number] Clareon Iol Aspheric Hydrophobic Acrylic Iol Implanted:Qty: 1 on 04/02/2023 by Cody Gonzalez DO at OR [facility] Right: Eye JAZMIN 11/12/2025 CNA0T0 / [id number] / documented as of this encounter Visit Diagnoses Diagnosis Pre-transplant evaluation for chronic liver disease- Primary Other specified pre-operative examination Hepatocellular carcinoma (HCC) Malignant neoplasm of liver, primary documented in this encounter Advance Directives Documents on File Type Date Recorded 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 No Full Code 07/22/2014 9:56 PM 07/24/2014 8:18 PM This order reflects the patients wishes and were consensually agreed upon. Question Answer Comments Discussion of Advance Directives occurred with: Patient Does the patient have a Living Will? No Does the patient have Health Care Power of Assembling Motor Builder? No Care Teams Manager Cost Relationship Specialty Start Date End Date Francisco Cisse MD [address] [place] [address] PCP - General Internal Medicine 09/04/21 documented as of this encounter
--- OUTSIDE RECORDS SUMMARY | 2023-11-26 12:36 | External Medical Summary ---
Author Name Unknown Address Unknown Organization [id number]:[facility] [place] [address] [place] [address] Laboratory Report Ordering Provider Test Date Status ZULAYCHELSEY 09/26/2023 15:57:42 Final Observation Date Value Abnormality Reference (Units ) Status Ferritin 09/26/2023 15:57:42 97 30-400 (ng /mL) Final Performing Location [facility] [place] [address] [place] [address]
--- OUTSIDE RECORDS SUMMARY | 2023-11-26 12:36 | External Medical Summary | Summary of Care ---
Author Name Unknown Organization [facility] Address [address] [address] Phone [phone] Care Team Providers Care Airdrop Systems Technician Name Role Phone Francisco Cisse MD Primary Care Provider + Reason for Visit * Reason Onset Date Comments Appointment 10/14/2023 Encounter Details Date Type Department Care Team (Late st Contact Info) Description 10/14/2023 Telephone General Internal Medicine [facility] [address] [place] [address] Francisco Cisse MD [address] [place] [address] Appointment (/) Allergies No known active allergiesdocumented [...] hemoglobin A1c goal of less than 7.0% ([facility]) Use to test blood sugars 3 [...] mRNA, LNP-s, No Pre serve, 2-Dose Series ([employer]) 03/08/2021,02/15/2021 HepA Inact/HepB Recomb>=18yrs old 12/04/2019,04/2019,05/20/2019 11/19/2019 PPD 06/18/2017, 3,01/09/2012,06/2011 Pneumococcal Conjugate Vacc, 13 Valent (Prevnar) 05/01/2017 Pneumococcal Polysaccharide PPV23 (Pneumovax) 08/28/2022,10/25/2015,07/14/2012 SEASONAL INFLUENZA, PF, 6 M & Above, IM , (FLULAVAL or FLUZONE) 09/04/2017 Season Influenza, Quad, PF, Adjuvanted, 65+ Yrs, IM (FLUAD) 10/07/2020(Deferred: Patient Refused - pt says he already had his shot last month at [facility] Handy Lyons and Mckinley Cobian made aware) [...] encounter Miscellaneous Notes * Telephone Encounter - Petra Obregon OSA - 10/14/2023 8:45 AM EST Pt needs to schedule the Following appt : Physical Therapy. Associated Diagnoses Closed fracture of twelfth thoracic vertebra with routine healing, unspecified fracture morphology,subsequent encounter [K45.273Q] Please contact pt to schedule appointment Thank You documented in this encounter Plan of Treatment Upcoming Encounters Date Type Department Care Team (Late st Contact Info) Description 11/13/2023 3:00 PM EST Office Visit Pharmacy, [facility] [address] [place] [address] [address] Pharmacist2, [facility] [address] [place] [address] [place] [address] 12/13/2023 9:30 AM EST Office Visit Gastroenterology, [facility] [address] [facility] [place] [address] Lam[facility]atum CRNP [facility] [place] [address] 01/13/2024 4:20 PM EST Office Visit General Internal Medicine [facility] [address] [place] [address] [address] Joaquin Snider PA-C [address] [place] [address] [address] 01/20/2024 4:00 PM EST Office Visit Hematology/Oncology [facility] [address] [address] Jennifer Ramires MD [address] [place] [address] 03/13/2024 2:00 PM EDT Office Visit Dermatology [facility] [address] [place] [address] Francisco Watson MD [address] [place] [address] 06/11/2024 10:30 AM EDT Office Visit Ophthalmology, [facility] [address] [facility] [place] [address] Cody Gonzalez, DO [address] [place] [address] Scheduled Procedures Name Priority Associated Diagnoses Date/Ti [...] Additional history exists CKD PHOS USE SMARTSET 36690 01/28/202401/03, 07/26/2022, 12/05/2021, Additional history exists GFR 02/28/2024 08/30/2023, 07/03, 07/12/2023, Additional history exists Diabetic Foot Exam 03/06/2024 03/06/2023, 0 01/03/2022, 03/02/2021, Additional history exists Albumin/Creatinine Ratio 07/12/2024 023, 10/01/2022, 09/11/2021, Additional history exists COLONOSCOPY-ANNUAL AGES 18-100 08/09/2024 08/09/2023, 11/07/2022, 04/12/2022, Additional history exists CKD HGB USE SMARTSET 29706 09/26/202409/26, 09/26/2023, 08/30/2023, Additional history exists Lipid [...] this encounter Medical Devices Implanted Type Area Bulk Tank Car Unloader Device Identifier Shelf Expiration Date Model / Serial / Lot Clareon Iol Aspheric Hydrophobic Acrylic Iol Implanted:Qty: 1 on 04/23/2023 by Cody Gonzalez DO at OR [facility] Lens Left: Eye 11/12/2025 CNA0T0 / [id number] / Viatorr Tips Endoprosthesis 8-10 Mm X 8cm / 2cm Implanted:Qty: 1 on 10/07/2020 by Go Alvarado MD at [facility] Right: Abdomen 03/03/2023 [id number] / / [id number] Description:Viatorr TIPS End oprosthesis 8-10 mm x 8cm / 2cm, Manufactored by [employer] [place] [employer] Syr Pf 2ml Embospheres 100-300 - [id number] Implanted:Qty: 1 on 04/18/2021 by Kevin Lim DO at OR [facility] Left: Abdomen [employer] [id number] 11/25/2023 S220GH / / [id number] -[id number] Syr Pf 2ml Embospheres 100-300 - [id number] Implanted:Qty: 1 on 03/28/2022 at 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 No Full Code 07/22/2014 9:56 PM 07/24/2014 8:18 PM This order reflects the patients wishes and were consensually agreed upon. Question Answer Comments Discussion of Advance Directives occurred with: Patient Does the patient have a Living Will? No Does the patient have Health Care Power of Technical Sales Engineer? No Care Teams Airdrop Systems Technician Relationship Specialty Start Date End Date Francisco Cisse MD [address] [place] [address] PCP - General Internal Medicine 09/04/21 documented as of this encounter
--- OUTSIDE RECORDS SUMMARY | 2023-11-26 12:36 | External Medical Summary ---
Author Name Unknown Address Unknown Organization K01:[facility] - [address] [facility] [address] Laboratory Report Ordering Provider Test Date Status CHELSEY BISWAS 09/26/2023 15:57:42 Final Observation Date Value Abnormality Reference (Units ) Status Iron 09/26/2023 15:57:42 84 45-176 (ug/dL) Final Iron-binding capacity 09/26/2023 15:57:42 233 Below low normal 250-425 (ug/dL) Final Transferrin Sat % 09/26/2023 15:57:42 36 15-55 (%) Final Performing Location [facility] - [address] [facility] [address]
--- OUTSIDE RECORDS SUMMARY | 2023-11-26 12:36 | External Medical Summary | Summary of Care ---
Author Name Unknown Organization [facility] Address [address] [facility] [place] [address] Phone [phone] Care Team Providers Care Midlevel Provider Name Role Phone Francisco Cisse MD Primary Care Provider + Encounter Details Date Type Department Care Team (Late st Contact Info) Description 08/14/2023 Population Health External Data Unspecified Department Allergies No known active allergiesdocumented as of this encounter (statuses as of 10/14/2023) Medications Medication Sig Dispensed Refills Start Date End Date Status Tylenol 325 MG Oral Capsule (Acetaminophen) Take 650 mg by mouth every 8 hours as needed for Pain (fever). 0 Active OneTouch Verio In Vitro Strip (Glucose Blood)Indications:Ty pe 2 diabetes mellitus with hemoglobin A1c goal of less than 7.0% ([facility]) Use to test blood sugars 3 [...] L/min(Oxygen) as directed at bedtime. 0 Active Hospital, Clinic, or Other Facility Administered [...] mRNA, LNP-s, No Pre serve, 2-Dose Series ([employer]) 03/08/2021,02/15/2021 HepA Inact/HepB Recomb>=18yrs old 12/04/2019,04/2019,05/20/2019 11/19/2019 PPD 06/18/2017, 3,01/09/2012,06/2011 Pneumococcal Conjugate Vacc, 13 Valent (Prevnar) 05/01/2017 Pneumococcal Polysaccharide PPV23 (Pneumovax) 08/28/2022,10/25/2015,07/14/2012 SEASONAL INFLUENZA, PF, 6 M & Above, IM , (FLULAVAL or FLUZONE) 09/04/2017 Season Influenza, Quad, PF, Adjuvanted, 65+ Yrs, IM (FLUAD) 10/07/2020(Deferred: Patient Refused - pt says he already had his shot last month at [facility] Handy Lyons and Mckinley Cobian made [...] 11/13/2023 3:00 PM EST Office Visit Pharmacy, [facility] [address] [place] [address] Pharmacist2, [facility] [address] [address] 12/13/2023 9:30 AM EST Office Visit Gastroenterology, [facility] [address] [facility] [place] [address] Lamar Tatum CRNP [address] [facility] [place] [address] 01/13/2024 4:20 PM EST Office Visit General Internal Medicine [facility] [address] [place] [address] [address] Joaquin Snider PA-C [address] [address] 01/20/2024 4:00 PM EST Office Visit Hematology/Oncology [facility] [address] [address] Jennifer Ramires MD [address] [facility] [place], [place] [address] 03/13/2024 2:00 PM EDT Office Visit Dermatology [facility] [address] [facility] [place], [place] [address] Francisco Watson MD [address] [facility] [place], [place] [address] 06/11/2024 10:30 AM EDT Office Visit Ophthalmology, [facility] [address] [facility] [place] [address] Cody Gonzalez, [address] [facility] [place] [address] Scheduled Procedures Name Priority Associated Diagnoses Date/Ti [...] Additional history exists CKD PHOS USE SMARTSET 83164 01/28/202401/03, 07/26/2022, 12/05/2021, Additional history exists GFR 02/28/2024 08/30/2023, 07/03, 07/12/2023, Additional history exists Diabetic Foot Exam 03/06/2024 03/06/2023, 0 01/03/2022, 03/02/2021, Additional history exists Albumin/Creatinine Ratio 07/12/2024 023, 10/01/2022, 09/11/2021, Additional history exists COLONOSCOPY-ANNUAL AGES 18-100 08/09/2024 08/09/2023, 11/07/2022, 04/12/2022, Additional history exists CKD HGB USE SMARTSET 35659 09/26/202409/26, 09/26/2023, 08/30/2023, Additional history exists Lipid [...] this encounter Medical Devices Implanted Type Area Pipe Welder Device Identifier Shelf Expiration Date Model / Serial / Lot Clareon Iol Aspheric Hydrophobic Acrylic Iol Implanted:Qty: 1 on 04/23/2023 by Cody Gonzalez DO at OR [facility] Lens Left: Eye 11/12/2025 CNA0T0 / [id number] / Viatorr Tips Endoprosthesis 8-10 Mm X 8cm / 2cm Implanted:Qty: 1 on 10/07/2020 by Go Alvarado MD at [facility] Right: Abdomen 03/03/2023 [id number] / / [id number] Description:Viatorr TIPS End oprosthesis 8-10 mm x 8cm / 2cm, Manufactored by [employer] Syr Pf 2ml Embospheres 100-300 - [id number] Implanted:Qty: 1 on 04/18/2021 by Kevin Lim DO at OR [facility] Left: Abdomen [employer] [id number] 11/25/2023 S220GH / / [id number] -[id number] Syr Pf 2ml Embospheres 100-300 - [id number] Implanted:Qty: 1 on 03/28/2022 at [facility] [employer] [id number] 08/31/2024 S220GH / / [id number] -5 Clareon Iol Aspheric Hydrophobic Acrylic Iol Implanted:Qty: 1 on 04/02/2023 by Cody Gonzalez DO at OR [facility] Right: Eye JAZMIN 11/12/2025 CNA0T0 / [id number] / documented as of this encounter Advance Directives Documents on File Type Date Recorded 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 No Full Code 07/22/2014 9:56 PM 07/24/2014 8:18 PM This order reflects the patients wishes and were consensually agreed upon. Question Answer Comments Discussion of Advance Directives occurred with: Patient Does the patient have a Living Will? No Does the patient have Health Care Power of Armature Connector? No Care Teams Midlevel Provider Relationship Specialty Start Date End Date Francisco Cisse MD [address] [place] [address] PCP - General Internal Medicine 09/04/21 documented as of this encounter
--- OUTSIDE RECORDS SUMMARY | 2023-11-26 12:36 | External Medical Summary | Summary of Care ---
Author Name Unknown Organization [facility] Address [address] [address] Phone [phone] Care Team Providers Care Sales And Retail Management Recruiter Name Role Phone Francisco Cisse MD Primary Care Provider + Reason for Visit * Reason Comments Outpatient Testing Encounter Details Date Type Department Care Team (Late st Contact Info) Description 09/26/2023 4:10 PM EDT Laboratory Laboratory, [facility] [address] [facility] [place] [phone] [facility] [address] [facility] [place] [address] Iron deficiency anemia, unspecified iron deficiency anemia type; Abnormal CBC measurement Allergies No known active allergiesdocumented as of this encounter (statuses as of 09/26/2023) Medications Medication Sig Dispensed Refills Start Date End Date Status Tylenol 325 MG Oral Capsule (Acetaminophen) Take 650 mg by mouth every 8 hours as needed for Pain (fever). 0 Active OneTouch Verio In Vitro Strip (Glucose Blood)Indications:Ty pe 2 diabetes mellitus with hemoglobin A1c goal of less than 7.0% ([facility]) Use to test blood sugars 3 times [...] as of this encounter (statuses as of 09/26/2023) Active Problems Problem Noted Date Diagnosed Date [...] as of this encounter (statuses as of 09/26/2023) Resolved Problems Problem Noted Date Diagnosed Date [...] as of this encounter (statuses as of 09/26/2023) Immunizations Name Administration Dates Next Due COVID-19 mRNA, LNP-s, No Pre serve, 2-Dose Series ([employer] 03/08/2021,02/15/2021 HepA Inact/HepB Recomb>=18yrs old 12/04/2019,04/2019,05/20/2019 11/19/2019 PPD 06/18/2017, 3,01/09/2012,0306/2011 Pneumococcal Conjugate Vacc, 13 Valent (Prevnar) 05/01/2017 Pneumococcal Polysaccharide PPV23 (Pneumovax) 08/28/2022,10/25/2015,07/14/2012 SEASONAL INFLUENZA, PF, 6 M & Above, IM , (FLULAVAL or FLUZONE) 09/04/2017 Season Influenza, Quad, PF, Adjuvanted, 65+ Yrs, IM (FLUAD) 10/07/2020(Deferred: Patient Refused - pt says he already had his shot last month at [facility] Handy Lyons and Mckinley Cobian made aware) Seasonal Influenza Virus Vac cine, Unspecified Formulation 09/15/2021,09/01/2019,09/04/2017,08/03,09/13/2014,08/10/2013,10/07/20 12,09/03/2011 Seasonal Influenza, Quadriva lent Hd, 65+ Yrs 09/30/2020 Seasonal Influenza, Quadriva lent, No Preserve, IM 09/01/2019,08/27/2016,10/25/2015 Seasonal Influenza, Split, I IV3, With Preserve, Inj 09/13/2014,08/10/2013,10/07/2012,10/01/2011 Seasonal Influenza, Trivalen t, Adjuvanted, 65+ yrs [...] Care Team (Late st Contact Info) Description 09/30/2023 12:00 PM EDT Office Visit General Internal Medicine [facility] [address] [place] [address] [address] Francisco Cisse MD [address] [place] [address] 10/07/2023 4:00 PM EST Office Visit Hematology/Oncology [facility] [address] [place] [address] [address] Ayaka Tatum CRNP [address] [place] [address] 10/11/2023 2:00 PM EST Office Visit General Internal Medicine [facility] [address] [place] [address] Joaquin Snider PA-C [address] [facility] [place] [address] 11/13/2023 3:00 PM EST Office Visit Pharmacy, [facility] [address] [address] Pharmacist2, [facility] [address] [address] 12/13/2023 9:30 AM EST Office Visit Gastroenterology, [facility] [address] [address] Lamar Tatum CRNP [address] [address] 03/13/2024 2:00 PM EDT Office Visit Dermatology [facility] [address] [place] [address] [address] Francisco Watson MD [address] [address] 06/11/2024 10:30 AM EDT Office Visit Ophthalmology, [facility] [address] [place] [address] Cody Gonzalez, DO [address] [place] [address] Pending Results Name Type Priority Associated Diagnoses Date /Time IRON SCREEN, INCLUDING TIBC Lab STAT Iron deficiency anemia, unspecified iron deficiency anemia type 09/26/2023 3:57 PM EDT FERRITIN Lab STAT Iron deficiency anemia, unspecified iron deficiency anemia type 09/26/2023 3:57 PM EDT Scheduled Procedures Name Priority Associated Diagnoses Date/Ti [...] 11/27/2023 05/28/2023, 01/03, 10/10/2022, Additional history exists DIABETES-EYE EXAM 01/17/2024 01/17/2023, , 01/17/2023, Additional history exists CKD PHOS USE SMARTSET 53259 01/28/202401/03, 07/26/2022, 12/05/2021, Additional history exists GFR 02/28/2024 08/30/2023, 07/03, 07/12/2023, Additional history exists Diabetic Foot Exam 03/06/2024 03/06/2023, 0 01/03/2022, 03/02/2021, Additional history exists Albumin/Creatinine Ratio 07/12/2024 023, 10/01/2022, 09/11/2021, Additional history exists COLONOSCOPY-ANNUAL AGES 18-100 08/09/2024 08/09/2023, 11/07/2022, 04/12/2022, Additional history exists CKD HGB USE SMARTSET 40483 08/30/202409/26, 09/26/2023, 08/30/2023, Additional history exists Lipid Panel [...] this encounter Medical Devices Implanted Type Area Sawmill Relief Worker Device Identifier Shelf Expiration Date Model / Serial / Lot Clareon Iol Aspheric Hydrophobic Acrylic Iol Implanted:Qty: 1 on 04/23/2023 by Cody Gonzalez DO at [facility] Lens Left: Eye 11/12/2025 [id number] / [id number] / Viatorr Tips Endoprosthesis 8-10 Mm X 8cm / 2cm Implanted:Qty: 1 on 10/07/2020 by Go Alvarado MD at [facility] Right: Abdomen 03/03/2023 [id number] / / [id number] Description:Viatorr TIPS End oprosthesis 8-10 mm x 8cm / 2cm, Manufactored by [employer] Syr Pf 2ml Embospheres 100-300 - [id number] Implanted:Qty: 1 on 04/18/2021 by Kevin Lim DO at [facility] Left: Abdomen [employer] [id number] 11/25/2023 S220GH / / [id number] Syr Pf 2ml Embospheres 100-300 - [id number] Implanted:Qty: 1 on 03/28/2022 at [facility] [employer] [id number] 08/31/2024 S220GH / / [id number] Clareon Iol Aspheric Hydrophobic Acrylic Iol Implanted:Qty: 1 on 04/02/2023 by Cody Gonzalez DO at [facility] Right: Eye JAZMIN 11/12/2025 CNA0T0 / [id number] / documented as of this encounter Procedures Procedure Name Priority Date/Time Associated Diagnosis Comments DIFFERENTIAL, AUTOMATED STAT 09/26/2023 3:57 PM EDT Iron deficiency anemia, unspecified iron deficiency anemia type CBC STAT 09/26/2023 3:57 PM EDT Iron deficiency anemia, unspecified iron deficiency anemia type CBC STAT 09/26/2023 3:57 PM EDT Iron deficiency anemia, unspecified iron deficiency anemia type DIFFERENTIAL, TECHNOLOGIST REVIEW Routine 09/26/2023 3:57 PM EDT Iron deficiency anemia, unspecified iron deficiency anemia type documented in this encounter Results * (ABNORMAL) DIFFERENTIAL, TECHNOLOGIST REVIEW (09/26/2023 3:57 PM EDT) nRBCs 09/26/2023 4:40 PM EDT [facility] Elliptocytes Moderate(A ) None Seen 09/26/2023 4:40 PM EDT [facility] Blood Venous blood specimen / Unknown Venipuncture / Unknown 09/26/2023 3:57 PM EDT 09/26/2023 3:57 PM EDT Ayaka Rdzsonali AGUILAR LAB BLOOD ORDER [facility] [place] [address] * (ABNORMAL) DIFFERENTIAL, AUTOMATED (09/26/2023 3:57 PM EDT) WBC 3.55(L) 4.00 - 10.80 K/uL 09/26/2023 4:40 PM EDT [facility] Neutrophils % 62.8 40.0 - 75.0 % 09/26/2023 4:40 PM EDT [facility] Lymphocytes % 21.4 18.0 - 42.0 % 09/26/2023 4:40 PM EDT [facility] Monocytes % 5.6 1.0 - 11.0 % 09/26/2023 4:40 PM EDT [facility] Eosinophils % 9.6(H) 0.0 - 6.0 % 09/26/2023 4:40 PM EDT [facility] Basophils % 0.6 0.0 - 2.0 % 09/26/2023 4:40 PM EDT [facility] Absolute Neutrophils 2.23 1.80 - 7.70 K/uL 09/26/2023 4:40 PM EDT [facility] Absolute Lymphocytes 0.76(L) 1.00 - 4.80 K/ul 09/26/2023 4:40 PM EDT [facility] Absolute Monocytes 0.20 0.00 - 1.10 K/uL 09/26/2023 4:40 PM EDT [facility] Absolute Eosinophils 0.34 0.00 - 0.70 K/uL 09/26/2023 4:40 PM EDT [facility] Absolute Basophils 0.02 0.00 - 0.20 K/uL 09/26/2023 4:40 PM EDT [facility] Blood Venous blood specimen / Unknown Venipuncture / Unknown 09/26/2023 3:57 PM EDT 09/26/2023 3:57 PM EDT Ayaka AGUILAR LAB BLOOD ORDER [facility] [place] [address] * (ABNORMAL) CBC (09/26/2023 3:57 PM EDT) Pathologist [facility] WBC 3.55(L) 4.00 - 10.80 K/uL 09/26/2023 4:40 PM EDT [facility] RBC 2.56 4.50 - 5.25 M/uL 09/26/2023 4:40 PM EDT [facility] HGB 8.5(L) 14.0 - 16.8 g/dL 09/26/2023 4:40 PM EDT [facility] HCT 26.0(L) 40.0 - 48.4 % 09/26/2023 4:40 PM EDT [facility] MCV 101.6 82.0 - 99.5 fL 09/26/2023 4:40 PM EDT [facility] MCH 33.2 27.0 - 34.0 pg 09/26/2023 4:40 PM EDT [facility] MCHC 32.7 32.0 - 36.0 g/dL 09/26/2023 4:40 PM EDT [facility] RDW 17.5 11.5 - 15.5 % 09/26/2023 4:40 PM EDT [facility] PLT 96(L) 140 - 400 K/uL 09/26/2023 4:40 PM EDT [facility] MPV 12.0 6.6 - 11.1 fL 09/26/2023 4:40 PM EDT [facility] Blood Venous blood specimen / Unknown Venipuncture / Unknown 09/26/2023 3:57 PM EDT 09/26/2023 3:57 PM EDT Ayaka Tatum JEFF [facility] BLOOD ORDER [facility] [place] [address] documented in this encounter Visit Diagnoses Diagnosis Iron deficiency anemia, unspecified iron deficiency anemia type Abnormal CBC measurement Other abnormal blood chemistry documented in this encounter Advance Directives Documents on File Type Date Recorded 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 No Full Code 07/22/2014 9:56 PM 07/24/2014 8:18 PM This order reflects the patients wishes and were consensually agreed upon. Question Answer Comments Discussion of Advance Directives occurred with: Patient Does the patient have a Living Will? No Does the patient have Health Care Power of Transmission Supervisor? No Care Teams Sales And Retail Management Recruiter Relationship Specialty Start Date End Date Francisco Cisse MD [address] [place] [address] PCP - General Internal Medicine 09/04/21 documented as of this encounter
--- OUTSIDE RECORDS SUMMARY | 2023-11-26 12:36 | External Medical Summary | Summary of Care ---
Author Name Unknown Organization [facility] [address] [facility] [address] Phone [phone] Care Team Providers Care Oracle Software Engineer Name Role Phone Francisco Cisse MD Primary Care Provider + Reason for Referral * Evaluate & Treat - Unlimited Visits (Within 10 days (routine)) - Authorized Specialty Diagnoses / Procedures Referred By Chacho fleming Referred To Contact Physical Therapy / Physical Medicine And Rehab Diagnoses Closed fracture of twelfth thoracic vertebra with routine healing, unspecified fracture morphology, subsequent encounter Joaquin Snider PA-C [address] [facility] [place] [address] Referral ID Status Reason Start Date Expiration Date Visits Requested Visits Authorized [id number] Authorized Specialty Services Required 3 [phone] Question Answer Referral Priority Within 10 days (routine) Where should this appointment be scheduled? [facility] Reason for Visit * Reason Onset Date Comments Follow Up 3 month. Patient states follow up to fall he had 06/2023. Patient states fell again x's 3-4 weeks ago bruising tailbone. Medication Administration 10/11/2023 Flu an d/or Pneumo Inj Encounter Details Date Type Department Care Team (Latest Contact Info) Description 10/11/2023 2:00 PM EST Office Visit General Internal Medicine [facility] [place] [address] [place] [address] Joaquin Snider PA-C [address] [facility] [place] [address] Cirrhosis of liver with ascites, unspecified hepatic cirrhosis type *; S/P TIPS (transjugular intrahepatic portosystemic shunt); Liver cell carcinoma (HCC); Portal vein thrombosis; Esophageal varices without bleeding, unspecified esophageal varices type (HCC); Lung disease, restrictive; Type 2 diabetes mellitus with stage 3a chronic kidney disease, with long-term current use of insulin (HCC); Dyslipidemia, goal LDL below 100; Chronic gout due to renal impairment of multiple sites without tophus; Pulmonary hypertension (HCC); Anemia due to stage 3a chronic kidney disease (HCC); History of prostate cancer; Radiation proctitis; Psoriasis; Need for prophylactic vaccination and inoculation against influenza; Closed fracture of twelfth thoracic vertebra with routine healing, unspecified fracture morphology, subsequent encounter Allergies No known active allergiesdocumented as of this encounter (statuses as of 10/11/2023) Medications Medication Sig Dispensed Refills Start Date End Date Status Tylenol 325 MG Oral Capsule (Acetaminophen) Take 650 mg by mouth every 8 hours as needed for Pain (fever). 0 Active OneTouch Verio In Vitro Strip (Glucose Blood)Indications: Type 2 diabetes mellitus with hemoglobin A1c goal of less than 7.0% ([facility]) Use to test blood sugars 3 times a day 300 Strip 5 2 Active BD Pen Needle Elizabeth 2nd Gen 32G X 4 MM USE DIRECTED TO ADMINISTER INSULIN AT DINNER DAILY 0 2 Active Triamcinolone Acetonide 0.1 % External Cream (Aristocort) Apply to psoriatic lesions twice a day as needed for 2-3 weeks 453.6 g 0 2 Active Mirtazapine 30 MG Oral Tablet (Remeron)Indicatio ns:Neoplastic (malignant) related fatigue,Depression due to physical illness Take 1 Tablet by mouth at bedtime. 90 Tablet 1 3 Active Lactulose 10 GM Oral Packet (Kristalose)Indica tions:Cirrhosis of liver without ascites, unspecified hepatic cirrhosis type (HCC) Take 1 Packet by mouth in the morning and 1 Packet before bedtime. 60 Packet 5 04/05/202 3 Active Multivitamin Men 50+ Oral Tablet Take [...] directed. Every 14 days 2 Each 5 3 Active Probiotic (Lactobacillus) Oral Capsule 1 Capsule. 0 3 Active oxyCODONE HCl 5 MG Oral Tablet (Oxy IR)Indications:Oth er closed fracture of twelfth thoracic vertebra, initial encounter (HCC) Take 1 Tablet by mouth every 6 hours as needed for Pain, Severe. 28 Tablet 0 3 Active Furosemide 20 MG Oral Tablet (Lasix)Indications :Cirrhosis of liver with ascites, unspecified hepatic cirrhosis type Take 2 Tablets by mouth in the morning. 180 Tablet 3 3 Active Allopurinol 100 MG Oral Tablet (Zyloprim)Indicati ons:Gout of big toe Take 2 Tablets by mouth in the morning. 180 Tablet 2 3 Active Lantus 100 UNIT/ML Subcutaneous Solution Inject 22 Units under the skin every evening. With dinner 0 3 Active oxygen IN GAS Use 2 L/min(Oxygen) as directed at bedtime. 0 Active Albumin Human 25 % Intravenous SolutionIndication s:Cirrhosis of liver with ascites, unspecified hepatic cirrhosis type 25Gm before and after paracentesis 100 mL 0 3 Active Metoclopramide HCl 5 MG Oral Tablet (Reglan) One tab as often as 3 times a day, if needed for nausea 90 Tablet 3 3 Active rifAXIMin 550 MG Oral Tablet (Xifaxan)Indicatio ns:Cirrhosis of liver (HCC),Hepatic encephalopathy (HCC) Take 1 Tablet by mouth in the morning and 1 Tablet before bedtime. 180 Tablet 5 3 Active Pantoprazole Sodium 40 MG Oral Tablet Delayed Release (Protonix)Indicati ons:GAVE (gastric antral vascular ectasia) Take 1 Tablet by mouth in the morning and 1 Tablet in the evening. 60 Tablet 5 3 Active Finasteride 5 MG Oral Tablet (Proscar) Take 1 Tablet by mouth in the morning. 90 Tablet 1 3 Active DULoxetine HCl 30 MG Oral Capsule Delayed Release Particles (Cymbalta) Take 1 Capsule by mouth in the morning. 30 Capsule 5 3 Active Zoster Vac Recomb Adjuvanted 50 MCG/0.5ML Intramuscular Suspension Reconstituted (Shingrix) Inject 0.5 mL into a large muscle now and repeat dose in 60 to 180 days 1 Each 1 3 Active DULoxetine HCl 30 MG Oral Capsule Delayed Release Particles (Cymbalta)Indicati ons:Other closed fracture of twelfth thoracic vertebra with delayed healing, subsequent encounter Take 1 Capsule by mouth in the morning for 7 days. Take for 1 week. Then increase to the 60mg capsule.. 7 Capsule 0 3 10/11/20 Discontinued Hospital, Clinic, or Other Facility Administered Medication [...] as of this encounter (statuses as of 10/11/2023) Active Problems Problem Noted Date Diagnosed Date [...] as of this encounter (statuses as of 10/11/2023) Resolved Problems Problem Noted Date Diagnosed Date [...] as of this encounter (statuses as of 10/11/2023) Immunizations Name Administration Dates Next Due COVID-19 mRNA, LNP-s, No Pre serve, 2-Dose Series (Pfizer) 03/08/2021,02/15/2021 HepA Inact/HepB Recomb>=18yrs old 12/04/2019,04/2019,05/20/2019 11/19/2019 PPD 06/18/2017, 3,01/09/2012,0306/2011 Pneumococcal Conjugate Vacc, 13 Valent (Prevnar) 05/01/2017 Pneumococcal Polysaccharide PPV23 (Pneumovax) 08/28/2022,10/25/2015,07/14/2012 SEASONAL INFLUENZA, PF, 6 M & Above, IM , (FLULAVAL or FLUZONE) 09/04/2017 Season Influenza, Quad, PF, Adjuvanted, 65+ Yrs, IM (FLUAD) 10/07/2020(Deferred: Patient Refused - pt says he already had his shot last month at [facility] Handy Lyons and Mckinley Cobian made [...] Date Smoking Tobacco: Never Smokeless Tobacco: Never Tobacco Cessation:Counseling Given: Not Answered Alcohol Use Standard Drinks/Week Comments Not Currently [...] Sign Reading Time Taken Comments Blood Pressure 120/54 10/11/2023 1:53 PM EST Pulse 73 10/11/2023 1:53 PM EST Temperature 37.2 C (98.9 F) 10/11/2023 1:53 PM ES T Respiratory Rate - - Oxygen Saturation 98% 10/11/2023 1:53 PM EST Inhaled Oxygen Concentration - - Weight 81.9 kg (180 lb 8 oz) 10/11/2023 1:53 PM EST Height 171 cm (5' 7.32") 10/11/2023 1:53 PM EST Body Mass Index 28 10/11/2023 1:53 PM EST documented in this [...] as of this encounter Progress Notes * Henna Alan LPN - 10/11/2023 1:55 PM EST Immunization Administration Documentation Time Out Procedure Performed: Yes Patient Identified (Ask Name/Date of ): Yes Does the patient have a fever greater than 101 degrees today? No Patient allergic to latex? No [facility] Stock: No Immunization(s) verified: Yes, Immunization Name: Flu, VIS Sheet(s) given: Yes Verified Side and Site: Yes Verified Shot(s) with Parent(s)/Patient: Yes PRE - ADMINISTRATION DOCUMENTATION Are you experiencing any cold symptoms or fever? No Have you had Guillain-Alta Syndrome (an illness that causes paralysis) within the last 6 weeks? No Have you had the flu shot in the past? YES Have you ever had a reaction to the flu shot? No Henna Alan LPN, 10/11/2023 1:55 PM * Joaquin Snider PA-C - 10/11/2023 1:49 PM EST Subjective: Luis Hale is a 73 year old male. Chief Complaint Patient presents with Follow Up 3 month. Patient states follow up to fall he had 06/2023. Patient states fell again x's 3-4 weeks ago bruising tailbone. Medication Administration Flu and/or Pneumo Inj HPI: 73 y/o with DM II, HLD, GAVE, cirrhosis s/p TIPS, esopgeal varices, CKD III, anemia, HCC, hx prostate cancer with resultant radiation proctitis seen today for follow up. Hospitalized for two days end of September at [facility] for hepatic encephalopathy with quick turn around.No changes to medication, but recommended compliance. No further treatment for HCC with IR means. Do not recommend systemic therapy according to notes and only treatment left would be transplant. PMH: Patient Active Problem List Diagnosis Code Allergic [...] disease, restrictive J98.4 Closed T12 spinal fracture (HCC) S22.089A Current Outpatient Medications Medication Sig Dispense Refill Tylenol 325 MG Oral Capsule (Acetaminophen) Take 650 mg by mouth every 8 hours as needed for Pain (fever). StreemToPipelineRx In Vitro Strip (Glucose Blood) Use to [...] mouth in the morning. 180 Tablet 3 Allopurinol 100 MG Oral Tablet (Zyloprim) Take 2 Tablets by mouth in the morning. 180 Tablet 2 Lantus 100 UNIT/ML Subcutaneous Solution Inject 22 Units under the skin every evening. With dinner oxygen IN GAS Use 2 L/min(Oxygen) as [...] 60 to 180 days 1 Each 1 Current Facility-Administered Medications Medication Dose Route Frequency Provider Last Rate Last Admin Albuterol Sulfate (Proventil) (2.5 MG/3ML) 0.083% inhalation solution 2.5 mg 2.5 mg Nebulizer PRN William Jennings PA-C Albuterol Sulfate (Proventil) (5 MG/ML) 0.5% *conc* inhalation solution 2.5 mg 2.5 mg Nebulizer PRNHWilliam turner PA-C 2.5 mg at 03/20/23 0913 Review of patient's allergies indicates: No Known Allergies Objective: BP 120/54 | Pulse 73 | Temp 37.2 C (98.9 F) | Ht 1.71 m (5' 7.32") | Wt 81.9 kg (180 lb 8 oz) |SpO2 98% | BMI 28.00 kg/m | BSA 1.97 m Results for orders placed or performed in visit on 09/26/23 IRON SCREEN, INCLUDING TIBC Result Value Ref Range Iron 84 45 - 176 ug/dL Iron Binding Capacity 233 (L) 250 - 425 ug/dL Transferrin Saturation Percent 36 15 - 55 % FERRITIN Result Value Ref Range Ferritin 97 30 - 400 ng/mL CBC Result Value Ref Range WBC 3.55 (L) 4.00 - 10.80 K/uL RBC 2.56 4.50 - 5.25 M/uL HGB 8.5 (L) 14.0 - 16.8 g/dL HCT 26.0 (L) 40.0 - 48.4 % MCV 101.6 82.0 - 99.5 fL MCH 33.2 27.0 - 34.0 pg MCHC 32.7 32.0 - 36.0 g/dL RDW 17.5 11.5 - 15.5 % PLT 96 (L) 140 - 400 K/uL MPV 12.0 6.6 - 11.1 fL DIFFERENTIAL, AUTOMATED Result Value Ref Range WBC 3.55 (L) 4.00 - 10.80 K/uL Neutrophils % 62.8 40.0 - 75.0 % Lymphocytes % 21.4 18.0 - 42.0 % Monocytes % 5.6 1.0 - 11.0 % Eosinophils % 9.6 (H) 0.0 - 6.0 % Basophils % 0.6 0.0 - 2.0 % Absolute Neutrophils 2.23 1.80 - 7.70 K/uL Absolute Lymphocytes 0.76 (L) 1.00 - 4.80 K/ul Absolute Monocytes 0.20 0.00 - 1.10 K/uL Absolute Eosinophils 0.34 0.00 - 0.70 K/uL Absolute Basophils 0.02 0.00 - 0.20 K/uL DIFFERENTIAL, TECHNOLOGIST REVIEW Result Value Ref Range nRBCs Elliptocytes Moderate (A) None Seen *Note: Due to a large number of results and/or encounters for the requested time period, some results have not been displayed. A complete set of results can be found in Results Review. Physical Exam Constitutional: General: He is not in acute distress. Appearance: Normal appearance. He is normal weight. He is not ill-appearing or toxic-appearing. HENT: Head: Normocephalic and atraumatic. Eyes: Extraocular Movements: Extraocular movements intact. Conjunctiva/sclera: Conjunctivae normal. Pupils: Pupils are equal, round, and reactive to light. Cardiovascular: Rate and Rhythm: Normal rate and regular rhythm. Heart sounds: Murmur heard. No friction rub. No gallop. Pulmonary: Effort: Pulmonary effort is normal. Breath sounds: Normal breath sounds. No wheezing, rhonchi or rales. Abdominal: General: Bowel sounds are normal. There is distension. Palpations: Abdomen is soft. There is no mass. Tenderness: There is no abdominal tenderness. There is no guarding or rebound. Neurological: Mental Status: He is alert. ASSESSMENT: Cirrhosis of liver with ascites, unspecified hepatic cirrhosis type (Primary) S/P TIPS (transjugular intrahepatic portosystemic shunt) Xifaxin, lactulose. Transplant team following. ON list. Will hopefully receive. Reviewed is living will again today. Still wishes for full measures. Liver cell carcinoma (HCC) S/p embolization and targeted therapy. Stable post treatment. Portal vein thrombosis Resolved. Esophageal varices without bleeding, unspecified esophageal varices type (HCC) Following with GI Lung disease, restrictive Pulmonary hypertension (HCC) Breathing stable. Type 2 diabetes mellitus with stage 3a chronic kidney disease, with long-term current use of insulin (HCC) Insulin Dyslipidemia, goal LDL below 100 No statin secondary to liver disease. Chronic gout due to renal impairment of multiple sites without tophus Allopurinol Anemia due to stage 3a chronic kidney disease (HCC) Following with heme/onc. Iron and blood transfusion History of prostate cancer Following with urology Radiation proctitis Mesalamine Psoriasis Following with derm Need for prophylactic vaccination and inoculation against influenza - INFLUENZA VACC, QUAD, HIGH DOSE (FLUZONE HD) Need for shingles - Zoster Vac Recomb Adjuvanted 50 MCG/0.5ML Intramuscular Suspension Reconstituted (Shingrix); Inject 0.5 mL into a large muscle now and repeat dose in 60 to 180 days Follow Up: Return in about 3 months (around 01/11/2024), or if symptoms worsen or fail to improve, for Return with Physician. | For: Return with Physician Joaquin Snider PA-C documented in this encounter Nursing Notes * Henna Alan LPN - 10/11/2023 1:52 PM EST Chief Complaint Patient presents with Follow Up 3 month. Patient states follow up to fall he had 06/2023. Patient states fell again x's 3-4 weeks ago bruising tailbone. documented in this encounter Plan of Treatment Upcoming Encounters Date Type Department Care Team (Late st Contact Info) Description 11/13/2023 3:00 PM EST Office Visit Pharmacy, [facility] [address] [facility] [place] [address] Pharmacist2, [facility] [address] [place] [address] 12/13/2023 9:30 AM EST Office Visit Gastroenterology, [facility] [address] [address] [address] Lamar Tatum CRNP [address] [address] 01/13/2024 4:20 PM EST Office Visit General Internal Medicine [facility] [address] [place] [address] Joaquin Snider PA-C [address] [facility] [place] [address] 01/20/2024 4:00 PM EST Office Visit Hematology/Oncology [facility] [address] [facility] [place] [address] Jennifer Ramires MD [address] [facility] [place] [address] 03/13/2024 2:00 PM EDT Office Visit Dermatology [facility] [address] [facility] [place] [address] Francisco Watson MD [address] [facility] [place] [address] 06/11/2024 10:30 AM EDT Office Visit Ophthalmology, [facility] [address] [facility] [place] [address] Cody Gonzalez DO [address] [facility] [address] Scheduled Procedures Name Priority Associated Diagnoses Date/Ti me COLONOSCOPY FLEXIBLE PROXIMAL DIAGNOSTIC Recall History of colonic polyps Portal hypertensive gastropathy (HCC) ESOPHAGOGASTRODUODENOSCOPY ( EGD), FLEXIBLE, TRANSORAL, DIAGNOSTIC Recall History of colonic polyps Portal hypertensive gastropathy (HCC) Scheduled Referrals Name Type Priority Associated Diagnoses Orde r Schedule PHYSICAL THERAPY REFERRAL OP Referral Within 10 days (routine) Closed fracture of twelfth thoracic vertebra with routine healing, unspecified fracture morphology, subsequent encounter Ordered: 10/11/2023 Health Maintenance Due Date Last Done Comments Zoster Vaccines (1 of 2) 2000 COVID-19 Vaccine (3 - Pfizer risk series) 04/05/2021 03/08/2021, 02/15/2021 Depression Screening 05/03/2022 05/03/2021 HbA1c 11/27/2023 05/28/2023, 01/03, 10/10/2022, Additional history exists Diabetic Eye Exam 01/17/2024 01/17/2023, , 01/17/2023, Additional history exists CKD PHOS USE SMARTSET 69678 01/28/202401/03, 07/26/2022, 12/05/2021, Additional history exists GFR 02/28/2024 08/30/2023, 07/03, 07/12/2023, Additional history exists Diabetic Foot Exam 03/06/2024 03/06/2023, 0 01/03/2022, 03/02/2021, Additional history exists Albumin/Creatinine Ratio 07/12/2024 023, 10/01/2022, 09/11/2021, Additional history exists COLONOSCOPY-ANNUAL AGES 18-100 08/09/2024 08/09/2023, 11/07/2022, 04/12/2022, Additional history exists CKD HGB USE SMARTSET 11127 09/26/202409/26, 09/26/2023, 08/30/2023, Additional history exists Lipid [...] this encounter Medical Devices Implanted Type Area Combined Rail Operator Device Identifier Shelf Expiration Date Model / Serial / Lot Clareon Iol Aspheric Hydrophobic Acrylic Iol Implanted:Qty: 1 on 04/23/2023 by Cody Gonzalez DO at OR [facility] Lens Left: Eye 11/12/2025 [id number] / [id number] / Viatorr Tips Endoprosthesis 8-10 Mm X 8cm / 2cm Implanted:Qty: 1 on 10/07/2020 by Go Alvarado MD at [facility] Right: Abdomen 03/03/2023 [id number] / / [id number] Description:Viatorr TIPS End oprosthesis 8-10 mm x 8cm / 2cm, Manufactored by [employer] Syr Pf 2ml Embospheres 100-300 - [id number] Implanted:Qty: 1 on 04/18/2021 by Kevin Lim DO at OR [facility] Left: Abdomen [employer] [id number] 11/25/2023 [id number] / / [id number] -[id number] Syr Pf 2ml Embospheres 100-300 - [id number] Implanted:Qty: 1 on 03/28/2022 at [facility] [employer] [id number] 08/31/2024 S220GH / / [id number] -[id number] Clareon Iol Aspheric Hydrophobic Acrylic Iol Implanted:Qty: 1 on 04/02/2023 by Cody Gonzalez DO at OR [facility] Right: Eye JAZMIN 11/12/2025 [id number] / [id number] / documented as of this encounter Visit Diagnoses Diagnosis Cirrhosis of liver with ascites, unspecified hepatic cirrhosis type- Primary S/P TIPS (transjugular intrahepatic portosystemic shunt) Other postprocedural status Liver cell carcinoma (HCC) Malignant neoplasm of liver, primary Portal vein thrombosis Esophageal varices without bleeding, unspecified esophageal varices type (HCC) Lung disease, restrictive Other diseases of lung, not elsewhere classified Type 2 diabetes mellitus with stage 3a chronic kidney disease, with long-term current use of insulin (HCC) Dyslipidemia, goal LDL below 100 Other and unspecified hyperlipidemia 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) Pulmonary hypertension (HCC) Other chronic pulmonary heart diseases Anemia due to stage 3a chronic kidney disease (HCC) History of prostate cancer Personal history of malignant neoplasm of prostate Radiation proctitis Other specified disorder of rectum and anus Psoriasis Other psoriasis Need for prophylactic vaccination and inoculation against influenza Closed fracture of twelfth thoracic vertebra with routine healing, unspecified fracture morphology, subsequent encounter documented in this encounter Advance Directives Documents on File Type Date Recorded Patient Editor School Photograph Expl anation Advance Directives and Living Will 12/11/2022 ADVANCE DIRECTIVE / LIVING WILL LIVING WILL Power of Candlemaking Laborer 12/11/2022 POWER OF A TTORNEY Latest Code [...] the patient have Health Care Power of Candlemaking Laborer? No Full Code 07/22/2014 9:56 PM 07/24/2014 8:18 PM This order reflects the patients wishes and were consensually agreed upon. Question Answer Comments Discussion of Advance Directives occurred with: Patient Does the patient have a Living Will? No Does the patient have Health Care Power of Candlemaking Laborer? No Care Teams Oracle Software Engineer Relationship Specialty Start Date End Date Francisco Cisse MD [address] [place] [address] PCP - General Internal Medicine 09/04/21 documented as of this encounter
--- OUTSIDE RECORDS SUMMARY | 2023-11-26 12:36 | External Medical Summary ---
Author Name Unknown Address Unknown Organization [id number] [address] [place] [address] Laboratory Report Ordering Provider Test Date Status CHELSEY BISWAS 09/26/2023 15:57:42 Final Observation Date Value Abnormality Reference (Units ) Status Nucleated erythrocytes/100 leukocytes [Ratio] in Blood by Automated count 09/26/2023 15:57:42 Final Elliptocytes [Presence] in Blood by Light microscopy 09/26/2023 15:57:42 Moderate Abnormal None Seen Final Performing Location [facility] [address] [place] [address]
--- OUTSIDE RECORDS SUMMARY | 2023-11-26 12:36 | External Medical Summary ---
Author Name Unknown Address Unknown Organization [id number] [address] [place] [address] Laboratory Report Ordering Provider Test Date Status CHELSEY BISWAS 09/26/2023 15:57:42 Final Observation Date Value Abnormality Reference (Units ) Status WBC, Total 09/26/2023 15:57:42 3.55 Below low normal 4. 00-10.80 (K/uL) Final RBC 09/26/2023 15:57:42 2.56 4.50-5.25 (M/uL) Final Hemoglobin 09/26/2023 15:57:42 8.5 Below low normal 14 .0-16.8 (g/dL) Final HCT 09/26/2023 15:57:42 26.0 Below low normal 40. 0-48.4 (%) Final MCV 09/26/2023 15:57:42 101.6 82.0-99.5 (fL) Final MCH 09/26/2023 15:57:42 33.2 27.0-34.0 (pg) Final MCHC 09/26/2023 15:57:42 32.7 32.0-36.0 (g/dL) Final RDW 09/26/2023 15:57:42 17.5 11.5-15.5 (%) Final Platelets 09/26/2023 15:57:42 96 Below low normal 140 -400 (K/uL) Final MPV 09/26/2023 15:57:42 12.0 6.6-11.1 ( fL) Final Performing Location LAB[facility]ORY [facility] [place] [address] [place] [address]
--- OUTSIDE RECORDS SUMMARY | 2023-11-26 12:36 | External Medical Summary | Summary of Care ---
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 Role Phone Francisco Cisse MD Primary Care Provider + Reason for Visit * Reason Comments Follow Up Encounter Details Date Type Department Care Team (Late st Contact Info) Description 10/04/2023 1:30 PM EDT Telemedicine Orthopaedics Spine Surgery, [place] [address] [place] [address] Zahraa Chandra PA-C [address] [place] [address] Closed fracture of twelfth thoracic vertebra, unspecified fracture morphology, initial encounter ([facility])* Allergies No known active allergiesdocumented as of this encounter (statuses as of 10/04/2023) Medications Medication Sig Dispensed Refills Start Date End Date Status Tylenol 325 MG Oral Capsule (Acetaminophen) Take 650 mg by mouth every 8 hours as needed for Pain (fever). 0 Active OneTouch Verio In Vitro Strip (Glucose Blood)Indications:Ty pe 2 diabetes mellitus with hemoglobin A1c goal of less than 7.0% ([facility]) Use to test blood sugars 3 times [...] as of this encounter (statuses as of 10/04/2023) Active Problems Problem Noted Date Diagnosed Date [...] as of this encounter (statuses as of 10/04/2023) Resolved Problems Problem Noted Date Diagnosed Date [...] as of this encounter (statuses as of 10/04/2023) Immunizations Name Administration Dates Next Due COVID-19 [...] already had his shot last month at [facility] Handy Lyons and Mckinley Cobian [...] Care Team (Late st Contact Info) Description 10/07/2023 4:00 PM EST Office Visit Hematology/Oncology [facility] [address] [facility] [address] Ayaka Tatum CRNP [address] [facility] [place] [address] 10/11/2023 2:00 PM EST Office Visit General Internal Medicine [facility] [address] [facility] [place] [address] Joaquin Snider PA-C 200 [facility] [place] [address] 11/13/2023 3:00 PM EST Office Visit Pharmacy, [facility] [address] [place] [phone] Pharmacist2, [facility] [address] [place] [address] 12/13/2023 9:30 AM EST Office Visit [facility], [facility] [address] Lamar Tatum CRNP [address] [place] [address] 03/13/2024 2:00 PM EDT Office Visit Dermatology [facility] [address] [facility] [place] [address] Francisco Watson MD 200 [facility] [place] [address] 06/11/2024 10:30 AM EDT Office Visit Ophthalmology, [facility] [address] [place] [address] Cody Gonzalez, DO [address] [place] [phone] Scheduled Procedures Name Priority Associated Diagnoses Date/Ti [...] Additional history exists CKD PHOS USE SMARTSET 93471 01/28/202401/03, 07/26/2022, 12/05/2021, Additional history exists GFR 02/28/2024 08/30/2023, 07/03, 07/12/2023, Additional history exists Diabetic Foot Exam 03/06/2024 03/06/2023, 0 01/03/2022, 03/02/2021, Additional history exists Albumin/Creatinine Ratio 07/12/2024 023, 10/01/2022, 09/11/2021, Additional history exists COLONOSCOPY-ANNUAL AGES 18-100 08/09/2024 08/09/2023, 11/07/2022, 04/12/2022, Additional history exists CKD HGB USE SMARTSET 83289 09/26/202409/26, 09/26/2023, 08/30/2023, Additional history exists Lipid [...] this encounter Medical Devices Implanted Type Area Nurse Practitioner Physician Assistant Device Identifier Shelf Expiration Date Model / Serial / Lot Clareon Iol Aspheric Hydrophobic Acrylic Iol Implanted:Qty: 1 on 04/23/2023 by Cody Gonzalez DO at [facility] Lens Left: Eye 11/12/2025 [id number] / [id number] / Viatorr Tips Endoprosthesis 8-10 Mm X 8cm / 2cm Implanted:Qty: 1 on 10/07/2020 by Go Alvarado MD at [facility] Right: Abdomen 03/03/2023 [id number] / / [id number] Description:Viatorr TIPS End oprosthesis 8-10 mm x 8cm / 2cm, Manufactored by [employer] Syr Pf 2ml Embospheres 100-300 - [id number] Implanted:Qty: 1 on 04/18/2021 by Kevin Lim DO at OR [facility] Left: Abdomen [employer] [id number] 11/25/2023 [id number] / / [id number] Syr Pf 2ml Embospheres 100-300 - [id number] Implanted:Qty: 1 on 03/28/2022 at [facility] [employer] [id number] 08/31/2024 S220GH / / [id number] Clareon Iol Aspheric Hydrophobic Acrylic Iol Implanted:Qty: 1 on 04/02/2023 by Cody Gonzalez DO at OR [facility] Right: Eye JAZMIN 11/12/2025 [id number] / [id number] / documented as of this encounter Visit Diagnoses Diagnosis Closed fracture of twelfth thoracic vertebra, unspecified fracture morphology, initial encounter (HCC)- Primary documented in this encounter Advance Directives Documents on File Type Date Recorded 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 No Full Code 07/22/2014 9:56 PM 07/24/2014 8:18 PM This order reflects the patients wishes and were consensually agreed upon. Question Answer Comments Discussion of Advance Directives occurred with: Patient Does the patient have a Living Will? No Does the patient have Health Care Power of Skin Lifter Bacon? No Care Teams Pellet Mill Operator Relationship Specialty Start Date End Date Francisco Cisse MD [address] [place] [id number] PCP - General Internal Medicine 09/04/21 documented as of this encounter
--- OUTSIDE RECORDS SUMMARY | 2023-11-26 12:36 | External Medical Summary | Summary of Care ---
Author Name Unknown Organization [facility] Address [address] [place] [address] Phone [phone] Care Team Providers Care Paradichlorobenzene Tender Name Role Phone Francisco Cisse MD Primary Care Provider + Reason for Visit * Reason Comments Follow Up 4m Encounter Details Date Type Department Care Team (Late st Contact Info) Description 10/07/2023 4:00 PM EST Office Visit Hematology/Oncology [facility] [address] [place] [address] Ayaka Tatum CRNP [address] [facility] [place] [address] Pancytopenia (HCC)*; Iron deficiency anemia, unspecified iron deficiency anemia type; GAVE (gastric antral vascular ectasia); Liver cell carcinoma (HCC); Portal vein thrombosis; Prostate cancer (HCC) Allergies No known active allergiesdocumented as of this encounter (statuses as of 10/09/2023) Medications Medication Sig Dispensed Refills Start Date [...] as of this encounter (statuses as of 10/09/2023) Active Problems Problem Noted Date Diagnosed Date [...] as of this encounter (statuses as of 10/09/2023) Resolved Problems Problem Noted Date Diagnosed Date [...] as of this encounter (statuses as of 10/09/2023) Immunizations Name Administration Dates Next Due COVID-19 mRNA, LNP-s, No Pre serve, 2-Dose Series (i-Nalysis) 03/08/2021,02/15/2021 HepA Inact/HepB Recomb>=18yrs old 12/04/2019,04/2019,05/20/2019 11/19/2019 PPD 06/18/2017, 3,01/09/2012,06/2011 Pneumococcal Conjugate Vacc, 13 Valent (Prevnar) 05/01/2017 Pneumococcal Polysaccharide PPV23 (Pneumovax) 08/28/2022,10/25/2015,07/14/2012 SEASONAL INFLUENZA, PF, 6 M & Above, IM , (FLULAVAL or FLUZONE) 09/04/2017 Season Influenza, Quad, PF, Adjuvanted, 65+ Yrs, IM (FLUAD) 10/07/2020(Deferred: Patient Refused - pt says he [facility] Handy Lyons and Mckinley Cobian made [...] Sign Reading Time Taken Comments Blood Pressure 148/70 10/07/2023 3:54 PM EST Pulse 72 10/07/2023 3:54 PM EST Temperature 36.9 C (98.4 F) 10/07/2023 3:54 PM ES T Respiratory Rate 16 10/07/2023 3:54 PM EST Oxygen Saturation 96% 10/07/2023 3:54 PM EST Inhaled Oxygen Concentration - - Weight 81 kg (178 lb 8 oz) 10/07/2023 3:54 PM ES T Height - - Body Mass Index 27.69 08/02/2023 7:45 AM EDT documented in this encounter Functional Status Functional [...] as of this encounter Progress Notes * Ayaka Tatum CRNP - 10/07/2023 4:00 PM EST Hematology/Oncology Outpatient Clinic note Tamra Vazquez [place] [address] [facility] [place] [address] Name: Luis Hale Date: 10/07/2023 CHIEF COMPLAINT: Luis Hale is a 73 year old male patient of Dr. Rodriguez Keyla here today for f/u visit today. From Patient chart confirmed with patient. HEMATOLOGY/ONCOLOGY DIAGNOSIS: Pancytopenia UDAY HCC Portal vein thrombosis History of prostate cancer TREATMENT HISTORY: TIPs was completed on 10/07/20. Revision Jan 2021. Left hepatic lobe LIRADS 5 lesion bland embolization on 04/18/2021 Completed radiation therapy to the prostate 04/05/21 Received his final Eligard injection in January of 2022 Right hepatic lobe mass bland embolization 02/21/22 Frequent blood transfusion. He was also treated multiple times with the iron infusion - last received IV Monoferric 01/23/23 CURRENT TREATMENT: Oral iron 65 mg one tablet daily ONCOLOGY HISTORY: Patient with complicated past medical history including DM II, GAVE, cirrhosis s/p TIPS, esophagealvarices, psoriasis, FOFANA, CKD III, prostate cancer, HCC, portal vein thrombosis was referred for evaluation of pancytopenia and portal vein thrombosis. Patient was recently diagnosed of prostate cancer and biopsy done which is consistent with adenocarcinoma. [place] score was 3+3 and PSA was 15.26. He was treated with radiation therapy which he completed in April of 2021. For liver cancer he was evaluated by interventional radiologist and his case was discussed in the tumor board. Transplant surgery is re-evaluating for possible liver transplant. He was evaluated in the past and it was determined he was not a candidate at that time due to prostate cancer. Consensus for liver directed therapy is bland embolization, given his liver function. Plan for bland embolization left hepatic lobe at [facility] which was done on 04/18/2021. He also has history of anemia and frequent blood transfusion. He was also treated multiple times with the iron infusion. An ultrasound of the abdomen was done on 05/03/2021 and shows Patent TIPS without evidence of stenosis, nonocclusive left portal vein thrombus, Left hepatic lobe mass. US of abdomen was repeated in 09/21/2021: IMPRESSION 1. Interval resolution of portal venous thrombus. 2. Patent TIPS without evidence of stenosis. 3. Stable appearance of the ablated segment 2 hepatic lesion. 4. Cirrhosis with portal hypertension, including moderate ascites and splenomegaly. He also has ascites and has required frequent paracentesis. He denies smoking and drinking. Family history significant for mother who had to lung cancer. One daughter has thyroid cancer, cervical cancer and some other genital cancer. Father was alcoholic and had liver disease and psoriasis. On 03/01/22 pt developed chest pain w/ exertion. He was admitted to [facility] and tx for anemia. He was having significant rectal bleeding and he was given 1 unit of PRBC. He believes the rectal bleeding is the result of XRT tx's that he received in 04/2021 for the prostate cancer. Flex Sigmoid 04/12/2022: Findings: - Multiple small and large-mouthed diverticula were found in the sigmoid colon. - External and internal hemorrhoids were found during perianal exam and during endoscopy. The hemorrhoids were mild. - Multiple medium-sized diffuse angioectasias with bleeding on contact were found in the rectum. Coagulation for hemostasis using argon plasma at 1.2 liters/minute and 30 cardoza was successful. Estimated blood loss was minimal. Interval History: Hospital follow up. Admitted at [facility] 06/14-06/21/23 after fall and back pain, found to have t12 fracture. Was seen by ortho, who recommended conservative care. He was put in brace. Admitted again 08/08/23 - 08/12/23 for GI bleed. EGD unremarkable other than portal hypertensive gastropathy, no evidence of bleeding. Did not require blood transfusion. Admitted again 09/21/23 - 09/23/23 for hepatic encephalopathy. HISTORY OF PRESENT ILLNESS: Luis Hale is a 73 year old male with a history as outlined above. Currently here for f/u visit today. Patient reporting he has good and bad days. Continues to feel very weak and tired but some days are better than others. Rectal bleeding comes and goes but is mild. Happens a couple times a month for a couple days and then resolves. Denies any CP or SOB. Weight is stable. Is now on the transplant list for his liver. Past Medical History: Diagnosis Date Acquired thrombocytopenia (HCC) 09/05/2017 Allergic rhinitis Anemia Anxiety and depression Aortic valve sclerosis 02/01/2023 Benign neoplasm of colon 04/16/2013 COLONOSCOPY FLEXIBLE PROXIMAL DIAGNOSTIC performed by Salvador Lopez MD at ENDOSCOPY [facility], adenomatous polyps repeat colonoscopy in 3 year Closed compression fracture of body of L1 vertebra (HCC) 12/07/2021 Closed T12 spinal fracture (HCC) 07/12/2023 Diverticulitis of colon fall 2004 DM type 2, goal A1c below 7 07/14/2012 GERD (gastroesophageal reflux disease) Mild mitral regurgitation 03/15/2022 NAFLD (nonalcoholic fatty liver disease) 04/25/2016 Obesity, BMI not known Other psoriasis and similar disorders Pancytopenia (HCC) 05/03/2021 PONV (postoperative nausea and vomiting) Prolonged Q-T interval on ECG 09/11/2021 Prostate cancer (HCC) 03/02/2021 Pulmonary hypertension (HCC) 02/01/2023 Past Surgical History: Procedure Laterality Date CATARACT SURGERY,COMPLEX Right 04/02/2023 EXTRACAPSULAR CATARACT REMOVAL COMPLEX WITH IOL performed by Cody Gonzalez DO at OR [facility] CATARACT SURGERY,COMPLEX Left 04/23/2023 LEFT EXTRACAPSULAR CATARACT REMOVAL COMPLEX WITH IOL performed by Cody Gonzalez DO at OR [facility] COLONOSCOPY 08/27/2005 [place] haven/hemorrhoids non internal COLONOSCOPY, DIAGNOSTIC (RECTUM) 04/16/2013 COLONOSCOPY FLEXIBLE PROXIMAL DIAGNOSTIC performed by Salvador Lopez MD at ENDOSCOPY [facility], adenomatous polyps repeat colonoscopy in 3 years COLONOSCOPY, DIAGNOSTIC (RECTUM) 05/03/2016 adenomatous polyps, diverticulosis, repeat 5 yrs/COLONOSCOPY FLEXIBLE PROXIMAL DIAGNOSTIC performedby Salvador Lopez MD at ENDOSCOPY [facility] COLONOSCOPY, DIAGNOSTIC (RECTUM) 07/19/2020 adenomatous & hyperplastic polyps, diverticulosis, repeat 3 yrs / [facility] COLONOSCOPY, DIAGNOSTIC (RECTUM) 11/30/2021 mild XRT proctitis, diverticulosis / COLONOSCOPY FLEXIBLE PROXIMAL DIAGNOSTIC performed by Barbara March DO at ENDOSCOPY [facility] COLONOSCOPY, DIAGNOSTIC (RECTUM) 02/01/2022 Mild XRT proctitis / COLONOSCOPY FLEXIBLE PROXIMAL DIAGNOSTIC performed by Barbara March DO at ENDOSCOPY [facility] COLONOSCOPY, DIAGNOSTIC (RECTUM) N/A 11/07/2022 poor prep/diverticulosis sigmoid colon/rectal angioectasias consistent with radiation proctopathy/Colonoscopy/[place] COLONOSCOPY, DIAGNOSTIC (RECTUM) N/A 08/09/2023 poor prep/moderate diverticulosis/hemorrhoids/biopsies show adenomatous and hyperplastic polyps/recall 1 years/Colonoscopy/[place] CT ABDOMEN W IV AND W ORAL CONTRAST 01/10/2010 EGD, FLEXIBLE, DIAGNOSTIC 07/22/2014 GE varices oozing blood, gastric polyp/ESOPHAGOGASTRODUODENOSCOPY (EGD), FLEXIBLE, TRANSORAL, DIAGNOSTIC performed by Juaquin Arrington MD at ENDOSCOPY [facility] EGD, FLEXIBLE, DIAGNOSTIC 07/23/2014 ESOPHAGOGASTRODUODENOSCOPY (EGD), FLEXIBLE, TRANSORAL, DIAGNOSTIC performed by Sophie Merino MD at ENDOSCOPY [facility] EGD, FLEXIBLE, DIAGNOSTIC 06/02/2019 eso & gastric varices, gastric polyps/ESOPHAGOGASTRODUODENOSCOPY (EGD), FLEXIBLE, TRANSORAL, DIAGNOSTIC performed by Salvador Lopez MD at ENDOSCOPY [facility] EGD, FLEXIBLE, DIAGNOSTIC 03/25/2020 portal hypertensive gastropathy, esophageal varices / INPT [facility] EGD, FLEXIBLE, DIAGNOSTIC 07/19/2020 eso varices, portal hypertensive gastropathy, repeat 3 mo / [facility] EGD, FLEXIBLE, DIAGNOSTIC 10/25/2020 Portal hypertensive gastropathy, eso varices / [facility] EGD, FLEXIBLE, DIAGNOSTIC 08/202222 Grade I esophageal varices / [facility] EGD, FLEXIBLE, DIAGNOSTIC N/A 09/11/2022 grade II esophageal varices/gastric antral vascular ectasia, treated with APC/repeat 3 months/EGD/[place] EGD, FLEXIBLE, DIAGNOSTIC N/A 11/07/2022 grade III esophageal varices, banded/gastric antral vascular ectasia/repeat 2 months/EGD/[place] EGD, FLEXIBLE, DIAGNOSTIC N/A 02/01/2023 [facility]< egd. / single G2 varix, banded and varices eradicated / no specimens collected / egd in 1 to 2 months / EGD, FLEXIBLE, DIAGNOSTIC N/A 08/09/2023 portal hypertensive gastropathy/repeat 1 year/EGD/[place] EGD, FLEXIBLE, DIAGNOSTIC 05/22/2023 GAVE, repeat 4-6 wks / [facility] IR CANCER THERASPHERE EMBOLIZATION 03/28/2022 IR EMBOLIZATION Left 04/18/2021 IMAGING SUPERVISION & INTERPRETATION TRANSCATHETER THERAPY, EMBOLIZATION performed by Kevin Lim DO at OR [facility] IR EMBOLIZATION ARTERIAL NON HEMMORHAGE Left 02/21/2022 EMBOLIZATION ARTERIAL; SUPERVISION & INTERPRETATION performed by Kevin Lim DO at OR [facility] IR EMBOLIZATION ARTERIAL NON HEMMORHAGE Left 06/05/2022 EMBOLIZATION ARTERIAL; SUPERVISION & INTERPRETATION performed by Kevin Lim DO at OR [facility] IR VENOUS TIPS 10/07/2020 REMOVAL OF TONSILS, UNDER AGE 12 age 6-7 Tonsils Removal,<12 Y/O SIGMOIDOSCOPY, DIAGNOSTIC 04/12/2022 radiation proctitis, diverticulosis / [facility] TIPS, REVISION N/A 01/24/2021 REVISION TRANSVENOUS INTRAHEPATIC PORTOSYSTEMIC SHUNT performed by Kevin Lim DO at OR [facility] TIPS, REVISION Right 10/19/2022 REVISION TRANSVENOUS INTRAHEPATIC PORTOSYSTEMIC SHUNT performed by Howie Valdovinos MD at OR [facility] TIPS, REVISION Right 02/20/2023 REVISION TRANSVENOUS INTRAHEPATIC PORTOSYSTEMIC SHUNT performed by Kevin Lim DO at OR 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: [employer] Tobacco Use Smoking status: Never Smokeless tobacco: Never Vaping Use Vaping Use: Never used Substance and Sexual Activity Alcohol use: Not Currently Comment: 1971 Drug use: No Sexual activity: Yes Partners: Female control/protection: Surgical Other Topics Concern Service Not Asked Blood Transfusions No Caffeine Concern Yes Comment: occasional soda Occupational Exposure Not Asked Hobby Hazards Not Asked Sleep Concern Not Asked Stress Concern Not Asked Weight Concern Not Asked Special Diet No Back Care Not Asked Exercise Not Asked Bike Helmet Not Asked Seat Belt No Self-Exams Not Asked 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 enjoys music, 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 Social Determinants of Health Financial Resource Strain: Not on file Food Insecurity: No Food Insecurity (10/22/2019) Hunger Vital Sign Worried About Running Out of Food in the Last Year: Never true Ran Out of Food in the Last Year: Never true Transportation Needs: Not on file Physical Activity: Not on file Stress: Not on file Social Connections: Not on file Intimate Partner Violence: Not on file Housing Stability: Not on file Review of patient's allergies indicates: No Known Allergies Current Outpatient Medications Medication Sig Dispense Refill [...] mouth in the morning. 30 Capsule 5 Current Facility-Administered Medications Medication Dose Route Frequency Provider Last Rate Last Admin Albuterol Sulfate (Proventil) (2.5 MG/3ML) 0.083% inhalation solution 2.5 mg 2.5 mg Nebulizer PRN JenningsWilliam jamil PA-C Albuterol Sulfate (Proventil) (5 MG/ML) 0.5% *conc* inhalation solution 2.5 mg 2.5 mg Nebulizer PRBRIDGETWilliam PA-C 2.5 mg at 03/20/23 0913 REVIEW OF SYSTEMS: See HPI - otherwise negative OBJECTIVE: Filed Vitals: 10/07/23 1554 BP: 148/70 Pulse: 72 Resp: 16 Temp: 36.9 C (98.4 F) TempSrc: Tympanic SpO2: 96% Weight: 81 kg (178 lb 8 oz) Wt Readings from Last 5 Encounters: 10/07/23 81 kg (178 lb 8 oz) 08/30/23 77.9 kg (171 lb 12.8 oz) 08/02/23 81.6 kg (179 lb 14.4 oz) 07/12/23 77.8 kg (171 lb 8 oz) 06/10/23 79.5 kg (175 lb 4.8 oz) PHYSICAL EXAM: ECOG: Performance Status 2 = 60-70% Bedtime, < 50% daytime General Appearance: No acute distress Lymph Nodes: Normal - No palpable lymph nodes in the neck or supraclavicular areas Lungs/Thorax: Normal - Clear to auscultation Heart: Normal - Regular rate and rhythm,+murmur Extremities: No edema Abdomen:Soft, nontender, bowel sounds present, +ascites Neurologic: alert and oriented x 4, in wheelchair today LABS: Results for orders placed or performed in [...] results can be found in Results Review. IMAGING: MRI Liver 09/26/23: IMPRESSION: 1. Stable treated hepatic observations in segment II and IVB, LR-TR nonviable. 2. No new hepatic observations. 3. Patent TIPSS. 4. Stable pancreatic head cystic lesion without suspicious features. 5. Stable left kidney cystic lesion with few thick septations. 6. New thoracolumbar compression fractures. 7. Decrease in ascites. IMPRESSION/PLAN: Pancytopenia - cause multifactorial including liver cirrhosis, splenomegaly and GI blood loss UDAY d/t chronic GI blood loss HCC Portal vein thrombosis History of prostate cancer Lab results reviewed: Hgb stable at 8.5 Ferritin has improved to 97 Platelet count stable at 96K Last received IV Monoferric 01/23/23. Continue ferrous sulfate one tablet daily. Last EGD 08/09/23: moderate portal hypertensive gastropathy, no evidence of bleeding, repeat in one year Will continue to follow closely with monthly cbc/diff, iron screen and ferritin Portal vein thrombosis occurs within the main portal vein and intrahepatic portal branches. In liver cirrhosis, especially in advanced stages, portal vein thrombosis is one of the most common complications. He would be at significant risk for the bleeding with the anticoagulation. With significant other comorbidities and risk of bleeding, the best option will be to follow the patient clinically. No plans for additional IR intervention for HCC. Was evaluated by Dr. Brown in [place] and determined to be no role for systemic therapy. Only option left is liver transplantation. Has completed treatment for prostate cancer. Continue to follow with Urology. PSA annually. Continue to f/u w/ GI regarding HCC and FOFANA cirrhosis with ascites. AFP with next lab draw. MRI liver scheduled 09/26/23 appears stable RTC in three months with physician with cbc/diff, cmp, iron screen, ferritin, AFP, PSA JEFF Olson documented in this encounter Nursing Notes * Kylie Alexander CMA - 10/07/2023 3:55 PM EST Patient identifed by name and birthdate Do you have any concerns about pain management for today's visit? Yes. Patient instructed to discuss pain concerns with provider during the visit today Living Will or Advance Directive for Health Care as noted on the problem list. [facility] is a way you can talk to your provider on line through e-mail. Would you like to sign up? I can activate it for you? ALREADY ACTIVE Patient was instructed to not get up on the exam table/exam chair until directed and assisted by their provider; patient is to remain seated in the chair/ wheelchair/ exam table/ exam chair for fall prevention and safety reasons. Patient is aware to have assistance to step down off exam table/exam chair with personnel. Patient voiced full comprehension of instructions. Filed Vitals: 10/07/23 1554 BP: 148/70 Pulse: 72 Resp: 16 Temp: 36.9 C (98.4 F) TempSrc: Tympanic SpO2: 96% Weight: 81 kg (178 lb 8 oz) documented in this encounter Plan of Treatment Upcoming Encounters Date Type Department Care Team (Late st Contact Info) Description 10/11/2023 2:00 PM EST Office Visit General Internal Medicine [facility] [address] [place] [address] Joaquin Snider PA-C [address] [place] [address] [address] 11/13/2023 3:00 PM EST Office Visit Pharmacy, [facility] [address] [place] [address] Pharmacist2, [facility] [address] [place] [address] [address] 12/13/2023 9:30 AM EST Office Visit Gastroenterology, [facility] [address] [place] [address] Lamar Tatum CRNP [address] [place] [address] 01/20/2024 4:00 PM EST Office Visit Hematology/Oncology [facility] [address] [facility] [place] [address] Jennifer Ramires MD [address] [facility] [place] [address] 03/13/2024 2:00 PM EDT Office Visit Dermatology [facility] [address] [facility] [place] [address] Francisco Watson MD [address] [facility] [place] [address] 06/11/2024 10:30 AM EDT Office Visit Ophthalmology, [facility] [address] [place] [address] Cody Gonzalez DO [address] [place] [address] Scheduled Orders Name Type Priority Associated Diagnoses Orde r Schedule COMPREHENSIVE METABOLIC PANEL Lab STAT Pancytopenia (HCC) Iron deficiency anemia, unspecified iron deficiency anemia type GAVE (gastric antral vascular ectasia) Liver cell carcinoma (HCC) Portal vein thrombosis Prostate cancer (HCC) Expected: 01/07/2024 (Approximate), Expires: 04/06/2024 ALPHA-FETOPROTEIN TUMOR MARKER Lab STAT Pancytopenia (HCC) Iron deficiency anemia, unspecified iron deficiency anemia type GAVE (gastric antral vascular ectasia) Liver cell carcinoma (HCC) Portal vein thrombosis Prostate cancer (HCC) Expected: 01/07/2024 (Approximate), Expires: 04/06/2024 PSA Lab STAT Pancytopenia (HCC) Iron deficiency anemia, unspecified iron deficiency anemia type GAVE (gastric antral vascular ectasia) Liver cell carcinoma (HCC) Portal vein thrombosis Prostate cancer (HCC) Expected: 01/07/2024 (Approximate), Expires: 04/06/2024 Scheduled Procedures Name Priority Associated Diagnoses Date/Ti [...] Additional history exists CKD PHOS USE SMARTSET 54376 01/28/202401/03, 07/26/2022, 12/05/2021, Additional history exists GFR 02/28/2024 08/30/2023, 07/03, 07/12/2023, Additional history exists Diabetic Foot Exam 03/06/2024 03/06/2023, 0 01/03/2022, 03/02/2021, Additional history exists Albumin/Creatinine Ratio 07/12/2024 023, 10/01/2022, 09/11/2021, Additional history exists COLONOSCOPY-ANNUAL AGES 18-100 08/09/2024 08/09/2023, 11/07/2022, 04/12/2022, Additional history exists CKD HGB USE SMARTSET 36779 09/26/202409/26, 09/26/2023, 08/30/2023, Additional history exists Lipid Panel 01/28/2028 01/28/2023, 12, 08/15/2020, Additional history exists DTaP,Tdap,and Td Vaccines [...] this encounter Medical Devices Implanted Type Area Bridge Contractor Device Identifier Shelf Expiration Date Model / Serial / Lot Clareon Iol Aspheric Hydrophobic Acrylic Iol Implanted:Qty: 1 on 04/23/2023 by Cody Gonzalez DO at OR [facility] Lens Left: Eye 11/12/2025 [id number] / [id number] / Viatorr Tips Endoprosthesis 8-10 Mm X 8cm / 2cm Implanted:Qty: 1 on 10/07/2020 by Go Alvarado MD at [facility] Right: Abdomen 03/03/2023 [id number] / / [id number] Description:Viatorr TIPS End oprosthesis 8-10 mm x 8cm / 2cm, Manufactored by [employer] Syr Pf 2ml Embospheres 100-300 - [id number] Implanted:Qty: 1 on 04/18/2021 by Kevin Lim DO at OR [facility] Left: Abdomen [employer] [id number] 11/25/2023 [id number] / / [id number] Syr Pf 2ml Embospheres 100-300 - [id number] Implanted:Qty: 1 on 03/28/2022 at [facility] [employer] [id number] 08/31/2024 [id number] / / [id number] -[id number] Clareon Iol Aspheric Hydrophobic Acrylic Iol Implanted:Qty: 1 on 04/02/2023 by Cody Gonzalez DO at OR [facility] Right: Eye [employer] 11/12/2025 [id number] / [id number] / documented as of this encounter Visit Diagnoses Diagnosis Pancytopenia (HCC)- Primary Other pancytopenia Iron deficiency anemia, unspecified iron deficiency anemia type GAVE (gastric antral vascular ectasia) Angiodysplasia of stomach and duodenum (without mention of hemorrhage) Liver cell carcinoma (HCC) Malignant neoplasm of liver, primary Portal vein thrombosis Prostate cancer (HCC) Malignant neoplasm of prostate documented in this encounter Advance Directives Documents on File Type Date Recorded Patient Windows Security Analyst Expl anation Advance Directives and Living Will 12/11/2022 ADVANCE DIRECTIVE / LIVING WILL LIVING WILL Power of Manufacturing Job Titles 12/11/2022 POWER OF A TTORNEY Latest Code [...] the patient have Health Care Power of Manufacturing Job Titles? No Full Code 07/22/2014 9:56 PM 07/24/2014 8:18 PM This order reflects the patients wishes and were consensually agreed upon. Question Answer Comments Discussion of Advance Directives occurred with: Patient Does the patient have a Living Will? No Does the patient have Health Care Power of Manufacturing Job Titles? No Care Teams Paradichlorobenzene Tender Relationship Specialty Start Date End Date Francisco Cisse MD [address] [place] [address], [place] [address] PCP - General Internal Medicine 09/04/21 documented as of this encounter
--- OUTSIDE RECORDS SUMMARY | 2023-11-26 12:36 | External Medical Summary ---
Author Name Unknown Address Unknown Organization K0G[facility] [address] [place] [address] Laboratory Report Ordering Provider Test Date Status CHELSEY BISWAS 09/26/2023 15:57:42 Final Observation Date Value Abnormality Reference (Units ) Status SYNC LEUKOCYTES IN BLOOD BY AUTOMATED COUNT 09/26/2023 15:57:42 3.55 Below low normal 4.00-10.80 (K/uL) Final Segs 09/26/2023 15:57:42 62.8 40.0-75.0 (%) Final Lymphs % 09/26/2023 15:57:42 21.4 18.0-42.0 (%) Final Monos 09/26/2023 15:57:42 5.6 1.0-11.0 (%) Final Eosinophils 09/26/2023 15:57:42 9.6 Above high normal 0.0-6.0 (%) Final Basos 09/26/2023 15:57:42 0.6 0.0-2.0 (%) Final Absolute Segs 09/26/2023 15:57:42 2.23 1.80-7.70 (K/uL) Final Lymphs, absolute 09/26/2023 15:57:42 0.76 Below low normal 1.00-4.80 (K/ul) Final Monos, Abs 09/26/2023 15:57:42 0.20 0.00-1.10 (K/uL) Final Eos, Abs 09/26/2023 15:57:42 0.34 0.00-0.70 (K/uL) Final Basos, Abs 09/26/2023 15:57:42 0.02 0.00-0.20 (K/uL) Final Performing Location [facility] [address] [place] [address]
--- OUTSIDE RECORDS SUMMARY | 2023-11-26 12:37 | External Medical Summary | Summary of Care ---
Author Name Unknown Organization [facility] Address [address] [facility] [place] [address] Phone [phone] Care Team Providers Care Fruit Trimmer Name Role Phone Francisco Cisse MD Primary Care Provider + Reason for Visit * Reason Onset Date Comments Appointment 09/23/2023 Encounter Details Date Type Department Care Team (Late st Contact Info) Description 09/23/2023 Telephone Radiology [address] [place] [address] [place] Warren TECH Appointment Allergies No known active allergiesdocumented as of this encounter (statuses as of 09/23/2023) Medications Medication Sig Dispensed Refills Start Date [...] as of this encounter (statuses as of 09/23/2023) Active Problems Problem Noted Date Diagnosed Date [...] as of this encounter (statuses as of 09/23/2023) Resolved Problems Problem Noted Date Diagnosed Date [...] as of this encounter (statuses as of 09/23/2023) Immunizations Name Administration Dates Next Due COVID-19 mRNA, LNP-s, No Pre serve, 2-Dose Series ([place]) 03/08/2021,02/15/2021 HepA Inact/HepB Recomb>=18yrs old 12/04/2019,04/2019,05/20/2019 11/19/2019 PPD 06/18/2017, 3,01/09/2012,06/2011 Pneumococcal Conjugate Vacc, 13 Valent (Prevnar) 05/01/2017 Pneumococcal Polysaccharide PPV23 (Pneumovax) 08/28/2022,10/25/2015,07/14/2012 SEASONAL INFLUENZA, PF, 6 M & Above, IM , (FLULAVAL or FLUZONE) 09/04/2017 Season Influenza, Quad, PF, Adjuvanted, 65+ Yrs, IM (FLUAD) 10/07/2020(Deferred: Patient Refused - pt says he already had his shot last month at [facility] Handy Lyons and Mckinley Cobian made [...] encounter Miscellaneous Notes * Telephone Encounter - KAITLYN Neil - 09/23/2023 4:44 PM EDT Name: Luis Hale Do you have any of the following: Pacemaker, stents, heart valves, aneurysm clips? No Have you ever worked with metal or have you ever gotten metal in your eyes? No Have you had a colonoscopy in the last 30 days? No On dialysis? No Do you have any dermals or body piercing's? No or ? Do you wear an insulin pump or diabetic monitor? no KAITLYN Neil documented in this encounter Plan of Treatment Upcoming Encounters Date Type Department Care Team (Late st Contact Info) Description 09/26/2023 2:30 PM EDT Imaging Radiology [address] [place] [address] 09/30/2023 12:00 PM EDT Office Visit General Internal Medicine [facility] [address] [place] [address] [address] Francisco Cisse MD [address] [place] [address] [address] 10/07/2023 4:00 PM EST Office Visit Hematology/Oncology [facility] [address] [place] [address] Ayaka Tatum CRNP [address] [place] [address] [place] [address] 10/11/2023 2:00 PM EST Office Visit General Internal Medicine [facility] [address] [place] [address] [address] Joaquin Snider PA-C [address] [place] [address] 11/13/2023 3:00 PM EST Office Visit Pharmacy, [facility] [address] [address] Pharmacist2, [facility] [address] [place] [address] 12/13/2023 9:30 AM EST Office Visit Gastroenterology, [facility] 132 [facility] [place] [address] Lamar Tatum CRNP 132 [place] [address] 03/13/2024 2:00 PM EDT Office Visit Dermatology [facility] 200 [facility] [place] [address] Francisco Watson MD 200 [facility] [place] [address] 06/11/2024 10:30 AM EDT Office Visit Ophthalmology, [facility] 132 [facility] [place] [address] Cody Gonzalez, DO [address] [facility] [address] Scheduled Procedures Name Priority Associated Diagnoses Date/Ti [...] Additional history exists CKD PHOS USE SMARTSET 38730 01/28/202401/03, 07/26/2022, 12/05/2021, Additional history exists GFR 02/28/2024 08/30/2023, 07/03, 07/12/2023, Additional history exists Diabetic Foot Exam 03/06/2024 03/06/2023, 0 01/03/2022, 03/02/2021, Additional history exists Albumin/Creatinine Ratio 07/12/2024 023, 10/01/2022, 09/11/2021, Additional history exists COLONOSCOPY-ANNUAL AGES 18-100 08/09/2024 08/09/2023, 11/07/2022, 04/12/2022, Additional history exists CKD HGB USE SMARTSET 65028 08/30/202408/30, 08/30/2023, 08/26/2023, Additional history exists Lipid Panel 01/28/2028 01/28/2023, [...] this encounter Medical Devices Implanted Type Area Labor Standards Director Device Identifier Shelf Expiration Date Model / Serial / Lot Clareon Iol Aspheric Hydrophobic Acrylic Iol Implanted:Qty: 1 on 04/23/2023 by Cody Gonzalez DO at OR [facility] Lens Left: Eye 11/12/2025 [id number] / [id number] / Viatorr Tips Endoprosthesis 8-10 Mm X 8cm / 2cm Implanted:Qty: 1 on 10/07/2020 by Go Alvarado MD at [facility] Right: Abdomen 03/03/2023 [id number] / / [id number] Description:Viatorr TIPS End oprosthesis 8-10 mm x 8cm / 2cm, Manufactored by [employer] Syr Pf 2ml Embospheres 100-300 - [id number] Implanted:Qty: 1 on 04/18/2021 by Kevin Lim DO at OR [facility] Left: Abdomen [employer] [id number] 11/25/2023 S220GH / / [id number] -[id number] Syr Pf 2ml Embospheres 100-300 - [id number] Implanted:Qty: 1 on 03/28/2022 at [facility] [employer] [id number] 08/31/2024 S220GH / / [id number] -[id number] Clareon Iol Aspheric Hydrophobic Acrylic Iol Implanted:Qty: 1 on 04/02/2023 by Cody Gonzalez DO at OR [facility] Right: Eye JAZMIN 11/12/2025 CNA0T0 / [id number] / documented as of this encounter Advance Directives Documents on File Type Date Recorded Patient Barn Hand Expl anation Advance Directives and Living Will 12/11/2022 ADVANCE DIRECTIVE / LIVING WILL LIVING WILL Power of Xerox Machine Mechanic 12/11/2022 POWER OF A TTORNEY Latest Code [...] the patient have Health Care Power of Xerox Machine Mechanic? No Full Code 07/22/2014 9:56 PM 07/24/2014 8:18 PM This order reflects the patients wishes and were consensually agreed upon. Question Answer Comments Discussion of Advance Directives occurred with: Patient Does the patient have a Living Will? No Does the patient have Health Care Power of Xerox Machine Mechanic? No Care Teams Fruit Trimmer Relationship Specialty Start Date End Date Francisco Cisse MD 200 [facility] [place] [address] PCP - General Internal Medicine 09/04/21 documented as of this encounter
--- OUTSIDE RECORDS SUMMARY | 2023-11-26 12:37 | External Medical Summary | Summary of Care ---
Author Name Unknown Organization [facility] Address [address] [facility] [address] Phone [phone] Care Team Providers Care Tavern Operator Name Role Phone Francisco Cisse MD Primary Care Provider + Reason for Visit * Reason Comments Dosage Adjustment In Person (Anticoag Cl inic) Pain * Evaluate & Treat - Unlimited Visits (Within 3 days (urgent)) - Authorized Specialty Diagnoses / Procedures Referred By Contac t Referred To Contact Pharmacist / Pharmacy Diagnoses Closed T12 spinal fracture (HCC) Francisco Cisse MD 200 [facility] [place] [address] Referral ID Status Reason Start Date Expiration Date Visits Requested Visits Authorized [id number] Authorized Specialty Services Required 08/08/2023 99 99 Encounter Details Date Type Department Care Team Description 09/06/2023 Office Visit Pharmacy, [facility] [address] [place] [address] Pharmacist2, [facility] [address] [address] Other closed fracture of twelfth thoracic vertebra with delayed healing, subsequent encounter* Allergies No known active allergiesdocumented as of this encounter (statuses as of 09/06/2023) Medications Medication Sig Dispensed Refills Start Date End Date Status Tylenol 325 MG Oral Capsule (Acetaminophen) Take 650 mg by mouth every 8 hours as needed for Pain (fever). 0 Active OneTouch Verio In Vitro Strip (Glucose Blood)Indications: Type 2 diabetes mellitus with hemoglobin A1c goal of less than 7.0% ([facility]) Use to test blood sugars [...] 1 Packet before bedtime. 60 Packet 5 3 Active Multivitamin Men 50+ Oral Tablet [...] fracture of twelfth thoracic vertebra, initial encounter ([facility]) Take 1 Tablet by mouth every [...] the 60mg capsule.. 7 Capsule 0 3 09/13/20 23 Active DULoxetine HCl 60 MG Oral Capsule Delayed Release Particles (Cymbalta)Indicati ons:Other closed fracture of twelfth thoracic vertebra with delayed healing, subsequent encounter Take 1 Capsule by mouth in the morning. 90 Capsule 3 3 Active Citalopram Hydrobromide 10 MG Oral Tablet (CeleXA)Indication s:Anxiety state Take 1 Tablet by mouth in the morning. 90 Tablet 1 3 09/06/20 23 Discontinued Hospital, Clinic, or Other Facility Administered [...] as of this encounter (statuses as of 09/06/2023) Active Problems Problem Noted Date Closed T12 spinal fracture 07/12/2023 Restrictive ventilatory defect 3 Lung disease, restrictive 04/05/2023 Pulmonary hypertension 02/01/2023 Aortic valve sclerosis 02/01/2023 Radiation proctitis 01/18/2023 Chronic gout of multiple sites Mild mitral regurgitation 03/15/2022 Type 2 diabetes mellitus wit h stage 3a chronic kidney disease, with long-term current use of insulin 12/07/2021 Prolonged Q-T interval on ECG 09/11/2021 Portal vein thrombosis 06/19/2021 Chronic kidney disease, stage 3a 021 Overview: Per CKD protocol Liver cell carcinoma 05/03/2021 Pancytopenia 05/03/2021 Anemia due to stage 3a chronic kidney di sease 04/11/2021 Overview: Per CKD protocol History of prostate cancer 03/02/2021 S/P TIPS (transjugular intrahepatic port osystemic shunt) 10/07/2020 Chronic anemia 06/28/2020 Iron deficiency anemia 03/18/2020 Acquired thrombocytopenia 09/05/2017 Acquired renal cyst 09/28/2014 Overview: Bilateral hemorrhagic cysts, with the right being larger than the left. Psoriasis 08/09/2014 Esophageal varices 07/28/2014 Cirrhosis of liver 07/28/2014 GAVE (gastric antral vascular ectasia) 0 07/22/2014 Type 2 diabetes mellitus with hemoglobin A1c goal of less than 7.0% 07/14/2012 Overview: ICD-10 update of inactive term Dyslipidemia, goal LDL below 100 012 Esophageal reflux 01/09/2007 Pancreas cyst 01/22/2006 Overview: Corrected the coding Allergic rhinitis documented as of this encounter (statuses as of 09/06/2023) Resolved Problems Problem Noted Date Resolved Date Closed compression fracture of body of L1 verteb ra 12/07/2021 01/18/2023 Liver mass, left lobe 04/18/2021 05/03/2021 Type 2 diabetes mellitus wit h stage 3a chronic kidney disease 04/11/2021 12/07/2021 Overview: Per CKD protocol Anemia, chronic renal failure, stage 3 (moderate ) 09/12/2020 04/13/2021 Overview: Per CKD protocol Anemia of chronic renal failure 09/06/2020 09/15/2020 Overview: Per CKD protocol Diabetes mellitus with stage 3 chronic kidney di sease 02/09/2019 04/13/2021 Overview: Per CKD protocol #1 FOFANA (nonalcoholic steatohepatitis) 09/03/2018 01/18/2023 NAFLD (nonalcoholic fatty liver disease) 016 09/03/2018 Nodular prostate with urinary obstruction 201303/02/2021 Left renal mass 07/28/2014 01/18/2023 Bleeding esophageal varices 07/22/201401/02 BPH without obstruction/lower urinary tract symp toms 04/06/2013 07/08/2018 Elevated prostate specific antigen (PSA) 010 03/02/2021 Anxiety state 02/04/2007 07/08/2018 ADVANCE DIRECTIVE INFORMATION 01/21/2006 Overview: No, Advance Directive brochure given to patient at prior appointment. ABDOMINAL PAIN, RECTAL 10/09/2002 7 Constipation 10/09/2002 09/04/2017 Overview: ICD-10 update of inactive term Other psoriasis 10/09/2002 07/08/2018 Dyslipidemia, goal to be determined 10/09/2002 07/14/2012 documented as of this encounter (statuses as of 09/06/2023) Immunizations Name Administration Dates Next Due COVID-19 [...] = 0.6 oz pur e alcohol) 1971 Food Insecurity Answer Date Recorded Within the past 12 months, y ou worried that your food would run out before you got money to buy more. Never true 10/22/2019 Within the past 12 months, t he food you bought just didn't last and you didn't have money to get more. Never true 10/22/2019 Sex Assigned at Date Recorded Male 01/25/2020 1:[address] Job Start Date Occupation Industry Not on [...] as of this encounter Progress Notes * Jose Ramon Payne, [facility] - 09/06/2023 2:12 PM EDT Images from the original note were not included. Medication Therapy Disease Management Clinic - Chronic Pain Management Progress Note 09/06/2023 Luis Hale, identified by name and date of , is a 73 year old male being seen for chronic pain management/education. Patient presents to pain MTM clinic for return visit. Referring Physician: Francisco Cisse MD Medication Use Agreement: opioids/non-opioids (patient not currently on opioids, no KAI, no UDS) Patient's Pharmacy: [facility] CHIEF COMPLAINT: Back Pain (T12 and around the rib cage) Reason for Referral: Pain. r/t Potentially stable Chance fracture with delayed healing-Not a surgical candidate Interval History: Patient with history of chronic fracture and not a candidate for surgery Patient did perform physical therapy prior to fracture. Fracture has been healing for 3 months. Has another appointment orthopedics next week. Patient reports opioids cause significant constipation Pain described as: uncomfortable Sleep: Sleeps well Palliating factors: Laying down Exacerbating factors: Standing/sitting up for prolonged periods Other interventions tried: Physical Therapy TENS Unit Worst time of day for pain: monring Imaging: PROCEDURE INFORMATION: Exam: XR Thoracolumbar Spine Exam date and time: 08/23/2023 2:12 PM Age: 73 years old Clinical indication: Unspecified fracture of t11-t12 vertebra, initial encounter for closed fracture; Additional info: T12 chance fracture TECHNIQUE: Imaging protocol: Radiologic exam of the thoracolumbar spine. Views: 2 views. COMPARISON: CR XR THORACOLUMBAR SPINE MIN 2 VIEWS 08/02/2023 8:32 AM FINDINGS: Bones/joints: There is a 30% anterior wedge compression fracture of T12 which has worsened since August 02. Schmorl's node formation is seen within the superior endplate. There is 20% anterior wedging of L1 which is unchanged since August 02. Minimal anterior wedging of T11 is seen unchanged. There is intervertebral disc space narrowing with osteophytic lipping throughout the lower thoracic and lumbar spine. Sclerosis and narrowing is seen within the facet joints. Soft tissues: Unremarkable. IMPRESSION IMPRESSION: Slightly more wedging of the T12 anterior wedge compression fracture Psychiatric Hx: Anxiety Neurological Hx: Denies Cardiac Hx: Pulmonary HTN, history of PVT, valvular disease Renal Hx: CKD stage 3a Hepatic Hx: Cirrhosis of liver Other: GI Bleed Exercise/Activity: Minimal activity Tobacco Use: Never Alcohol Use: denies Illicit Substance/Rx Abuse: Denies CONTROLLED SUBSTANCE COMPLIANCE MONITORING: Opioid Risk Assessment Tool (BRQ): Total score: 0-2 points (Low risk) CAGE-AID (09/06/2023): Total score: 0 points (problem unlikely) Daily MME: ~0-7.5MME PDMP Reviewed (09/06/2023): Urine Toxicology Screens: N/A Pill Count: N/A Functional Goal: Sitting up for several hours without issue, walk more readily Most recent answers to PEG-3 scale: What number best describes your pain on average in the past week?: 3 (09/06/2023 3:00 PM) What number best describes how, during the past week, pain has interfered with your enjoyment of life?: 6 (09/06/2023 3:00 PM) What number best describes how, during the past week, pain has interfered with your general activity?: 3 (09/06/2023 3:00 PM) PEG Pain Total Score: 4 (09/06/2023 3:00 PM) Past Pain Medications: Muscle relaxants: Baclofen Current Pain Medications: Citalopram 10mg QAM Oxycodone 5mg 1 tab Q6H #28 (not filled since 07/12/23, Uses sparingly, less than 1 tablet a month per patient) Mirtazapine 30mg QHS Tylenol 500mg 2 tabs BID Creatinine Clearance: Serum creatinine: 1.2 mg/dL 08/30/23 1123 Estimated creatinine clearance: 51.8 mL/min Creatinine Results: Recent Labs Units 08/30/23 1123 07/24/23 0000 07/12/23 1236 CREATININE - [facility] mg/dL 1.2 -- 1.3* CREATININE-OUTSIDE LAB MG/DL -- 1.11 -- Hepatic Function (ALT): Recent Labs Units 08/30/23 1123 07/12/23 1236 05/28/23 1214 ALT - [facility] U/L 29 32 33 Comprehensive Metabolic Panel Results: Results for orders placed or performed in visit on 08/30/23 COMPREHENSIVE METABOLIC PANEL Result Value Ref Range BUN 23 (H) 6 - 20 mg/dL Creatinine 1.2 0.6 - 1.2 mg/dL Estimated Glomerular Filtration Rate 67 >=60 mL/min Sodium 141 135 - 146 mmol/L Potassium 4.2 3.5 - 5.1 mmol/L Chloride 109 (H) 98 - 107 mmol/L CO2 22 22 - 32 mmol/L Anion Gap 10 7 - 15 mmol/L Glucose 192 (H) 70 - 120 mg/dL Albumin 3.1 (L) 3.8 - 5.0 g/dL AST 49 10 - 50 U/L Alkaline Phosphatase 225 (H) 35 - 130 U/L Bilirubin, Total 1.9 (H) <=1.2 mg/dL Calcium 8.4 8.4 - 10.2 mg/dL Protein 5.9 (L) 6.0 - 8.3 g/dL ALT 29 10 - 50 U/L ASSESSMENT: Patient aware MTM is a clinical pharmacist visit, with focus on medication options for current diagnoses referred by Primary Care Provider for review and optimization. Focus of this visit is Medication Optimization. Current concerns: Patient currently dealing with chronic pain of the back due to chronic fracture of T12 with multiple comorbid conditions which will Adherence: Reviewed current regimen, patient is adherent to regimen. Treatment options: Offered to switch from citalopram to cymbalta. Treatment concerns: Will monitor for adverse effects caused by cymbalta Education provided: MOA of cymbalta in chronic pain. PLAN: STOP: Citalopram 10mg QAM START: Cymbalta 30mg daily for 1 week then increase to 60mg daily Medication changes: yes, see below Pain Medications: START: Cymbalta 60mg daily Oxycodone 5mg 1 tab Q6H #28 (not filled since 07/12/23, Uses sparingly, less than 1 tablet a month per patient) Mirtazapine 30mg QHS Tylenol 500mg 2 tabs BID Patient verbalized understanding of the plan. Contact clinic with any issues. FOLLOW UP: Return to clinic in 8 weeks 11/13/2023 Jose Ramon Payne [facility] Clinical Pharmacist - [employer]illery Crewmember Medication Therapy Management Clinic 09/06/2023, 2:15 PM documented in this encounter Plan of Treatment Upcoming Encounters Date Type Specialty Care Team Description 09/13/2023 Office Visit Orthopedic Surgery Clayton Vazquez MD [address] [place] [address] [place] [address] 09/26/2023 Imaging Radiology 09/30/2023 Office Visit Hematology Oncology Jennifer Ramires MD [address] [place] [address] 10/05/2023 Imaging Radiology 10/08/2023 Procedure Only Urology Frank Peraza MD [address] [address] [place] [address] 10/11/2023 Office Visit Internal Medicine Joaquin Snider PA-C [address] [place] [address] [address] 11/13/2023 Office Visit Pharmacy Pharmacist2, [facility] [address] [place] [address] 12/13/2023 Office Visit Gastroenterology Lamar Tatum CRNP [address] [place] [address] 06/11/2024 Office Visit Ophthalmology Cody Gonzalez, DO [address] [place] [address] Scheduled Procedures Name Priority Associated Diagnoses Date/Ti [...] Additional history exists CKD PHOS USE SMARTSET 40990 01/28/202401/03, 07/26/2022, 12/05/2021, Additional history exists GFR 02/28/2024 08/30/2023, 07/03, 07/12/2023, Additional history exists Diabetic Foot Exam 03/06/2024 03/06/2023, 0 01/03/2022, 03/02/2021, Additional history exists Albumin/Creatinine Ratio 07/12/2024 023, 10/01/2022, 09/11/2021, Additional history exists COLONOSCOPY-ANNUAL AGES 18-100 08/09/2024 08/09/2023, 11/07/2022, 04/12/2022, Additional history exists CKD HGB USE SMARTSET 95874 08/30/202408/30, 08/30/2023, 08/26/2023, Additional history exists Lipid [...] this encounter Medical Devices Implanted Type Area Model And Dye Person Device Identifier Shelf Expiration Date Model / Serial / Lot Clareon Iol Aspheric Hydrophobic Acrylic Iol Implanted:Qty: 1 on 04/23/2023 by Cody Gonzalez DO at OR [facility] Lens Left: Eye 11/12/2025 CNA0T0 / [id number] / Viatorr Tips Endoprosthesis 8-10 Mm X 8cm / 2cm Implanted:Qty: 1 on 10/07/2020 by Go Alvarado MD at [facility] Right: Abdomen 03/03/2023 [id number] / / [id number] Description:Viatorr TIPS End oprosthesis 8-10 mm x 8cm / 2cm, Manufactored by [employer] Syr Pf 2ml Embospheres 100-300 - [id number] Implanted:Qty: 1 on 04/18/2021 by Kevin Lim DO at OR [facility] Left: Abdomen [employer] [id number] 11/25/2023 S220GH / / [id number] -[id number] Syr Pf 2ml Embospheres 100-300 - [id number] Implanted:Qty: 1 on 03/28/2022 at [facility] [employer] [id number] 08/31/2024 S220GH / / [id number] -[id number] Clareon Iol Aspheric Hydrophobic Acrylic Iol Implanted:Qty: 1 on 04/02/2023 by Cody Gonzalez DO at OR [facility] Right: Eye JAZMIN 11/12/2025 CNA0T0 / [id number] / documented as of this encounter Visit Diagnoses Diagnosis Other closed fracture of twelfth thoracic vertebra with delayed healing, subsequent encounter- Primary documented in this encounter Advance Directives Documents on File Type Date Recorded Patient Publicist Expl anation Advance Directives and Living Will 12/11/2022 ADVANCE DIRECTIVE / LIVING WILL LIVING WILL Power of Consultant 12/11/2022 POWER OF A TTORNEY Latest [...] the patient have Health Care Power of Consultant? No Full Code 07/22/2014 9:56 PM 07/24/2014 8:18 PM This order reflects the patients wishes and were consensually agreed upon. Question Answer Comments Discussion of Advance Directives occurred with: Patient Does the patient have a Living Will? No Does the patient have Health Care Power of Consultant? No Care Teams Tavern Operator Relationship Specialty Start Date End Date Francisco Cisse MD [address] [place] [address] PCP - General Internal Medicine 09/04/21 documented as of this encounter
--- OUTSIDE RECORDS SUMMARY | 2023-11-26 12:37 | External Medical Summary | Summary of Care ---
Author Name Unknown Organization [facility] [address] [address] Phone [phone] Care Team Providers Care Spanish Interpreter Name Role Phone Francisco Cisse MD Primary Care Provider + Reason for Visit * Reason Onset Date Comments Med Request 09/04/2023 Encounter Details Date Type Department Care Team Description 09/04/2023 Telephone General Internal Medicine [facility] [place] [address] [facility] [place] [address] Francisco Cisse MD 200 [facility] [place] [address] Med Request Allergies No known active allergiesdocumented as of this encounter (statuses as of 09/04/2023) Medications Medication Sig Dispensed Refills Start Date End Date Status Tylenol 325 MG Oral Capsule (Acetaminophen) Take 650 mg by mouth every 8 hours as needed for Pain (fever). 0 Active OneTouch Verio In Vitro Strip (Glucose Blood)Indications:Ty pe 2 diabetes mellitus with hemoglobin A1c goal of less than 7.0% ([facility]) Use to test blood sugars [...] the morning. 90 Tablet 1 09/02/2023 Active Citalopram Hydrobromide 10 MG Oral Tablet (CeleXA)Indications: Anxiety state Take 1 Tablet by mouth in the morning. 90 Tablet 1 09/02/2023 Active Hospital, Clinic, or Other Facility Administered [...] as of this encounter (statuses as of 09/04/2023) Active Problems Problem Noted Date Closed T12 spinal fracture 07/12/2023 Restrictive ventilatory defect 3 Lung disease, restrictive 04/05/2023 Pulmonary hypertension 02/01/2023 Aortic valve sclerosis 02/01/2023 Radiation proctitis 01/18/2023 Chronic gout of multiple sites 2 Mild mitral regurgitation 03/15/2022 Type 2 diabetes [...] as of this encounter (statuses as of 09/04/2023) Resolved Problems Problem Noted Date Resolved Date [...] as of this encounter (statuses as of 09/04/2023) Immunizations Name Administration Dates Next Due COVID-19 [...] already had his shot last month at [facility] Handy Lyons and Mckinley Cobian made aware) Seasonal Influenza Virus Vac cine, Unspecified Formulation 09/15/2021,09/01/2019,09/04/2017,08/03,09/13/2014,08/10/2013,10/07/20 12,09/03/2011 Seasonal Influenza, Quadriva lent Hd, 65+ Yrs 09/30/2020 Seasonal Influenza, Quadriva lent, No Preserve, IM 09/01/2019,08/27/2016,10/25/2015 Seasonal Influenza, Split, I IV3, With Preserve, Inj 09/13/2014,08/10/2013,10/07/2012,1001/2011 Seasonal Influenza, Trivalen t, Adjuvanted, 65+ yrs [...] encounter Miscellaneous Notes * Telephone Encounter - Jose Ramon Payne RPh - 09/04/2023 12:31 PM EDT Patient receives from [employer], phone number provided to the patient . Patient should call to receive refills. Left message with patients son. Jose Ramon Payne PharmD, [facility] Clinical Pharmacist 09/04/2023, 12:35 PM * Telephone Encounter - Ana Blank CPhT - 09/04/2023 9:41 AM EDT An order was requested for this patient. Name of Requestor: Luis Order Request: Diabetic testing supplies ([employer] Wang 2 sensors); [facility] - [facility] TO [facility] POOL Diagnosis/Reason for Request: DM Does the order need to be faxed somewhere? If so, where?: unknown Fax Number, if applicable: Call Back Number: [phone] Patient is not sure where these are from but he is out of them and asking for high priority. Thank you, Ana Blank [facility]uer [facility] ([facility]) (Formerly Telepharmacy) 09/04/2023,9:43 AM documented in this encounter Plan of Treatment Upcoming Encounters Date Type Specialty Care Team Description 09/06/2023 Office Visit Pharmacy Pharmacist2, [facility] [address] [address] 09/13/2023 Office Visit Orthopedic Surgery Clayton Vazquez MD [address] [place] [address] [place] [address] 09/26/2023 Imaging Radiology 09/30/2023 Office Visit Hematology Oncology Jennifer Ramires MD [address] [place] [address] [address] 10/05/2023 Imaging Radiology 10/08/2023 Procedure Only Urology Frank Peraza MD [address] [place] [address] [place] [id number] 10/11/2023 Office Visit Internal Medicine Joaquin Snider PA-C [address] [facility] [address] 12/13/2023 Office Visit Gastroenterology Lamar Tatum CRNP [address] [place] [address] 06/11/2024 Office Visit Ophthalmology Cody Gonzalez DO [address] [place] [id number] Scheduled Procedures Name Priority Associated Diagnoses Date/Ti [...] Additional history exists CKD PHOS USE SMARTSET 84642 01/28/202401/03, 07/26/2022, 12/05/2021, Additional history exists GFR 02/28/2024 08/30/2023, 07/03, 07/12/2023, Additional history exists Diabetic Foot Exam 03/06/2024 03/06/2023, 0 01/03/2022, 03/02/2021, Additional history exists Albumin/Creatinine Ratio 07/12/2024 023, 10/01/2022, 09/11/2021, Additional history exists COLONOSCOPY-ANNUAL AGES 18-100 08/09/2024 08/09/2023, 11/07/2022, 04/12/2022, Additional history exists CKD HGB USE SMARTSET 36002 08/30/202408/30, 08/30/2023, 08/26/2023, Additional history exists Lipid [...] this encounter Medical Devices Implanted Type Area Licensed Retail Supervisor Device Identifier Shelf Expiration Date Model / Serial / Lot Clareon Iol Aspheric Hydrophobic Acrylic Iol Implanted:Qty: 1 on 04/23/2023 by Cody Gonzalez DO at OR [facility] Lens Left: Eye 11/12/2025 [id number] / [id number] / Viatorr Tips Endoprosthesis 8-10 Mm X 8cm / 2cm Implanted:Qty: 1 on 10/07/2020 by Go Alvarado MD at [facility] Right: Abdomen 03/03/2023 [id number] / / [id number] Description:Viatorr TIPS End oprosthesis 8-10 mm x 8cm / 2cm, Manufactored by [employer] Syr Pf 2ml Embospheres 100-300 - [id number] Implanted:Qty: 1 on 04/18/2021 by Kevin iLm DO at OR [facility] Left: Abdomen [employer] [id number] 11/25/2023 S220GH / / [id number] -[id number] Syr Pf 2ml Embospheres 100-300 - [id number] Implanted:Qty: 1 on 03/28/2022 at [facility] [employer] [id number] 08/31/2024 S220GH / / [id number] -5 Clareon Iol Aspheric Hydrophobic Acrylic Iol Implanted:Qty: 1 on 04/02/2023 by Cody Gonzalez DO at OR [facility] Right: Eye JAZMIN 11/12/2025 CNA0T0 / [id number] / documented as of this encounter Advance Directives Documents on File Type Date Recorded 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 No Full Code 07/22/2014 9:56 PM 07/24/2014 8:18 PM This order reflects the patients wishes and were consensually agreed upon. Question Answer Comments Discussion of Advance Directives occurred with: Patient Does the patient have a Living Will? No Does the patient have Health Care Power of Resource Forester? No Care Teams Spanish Interpreter Relationship Specialty Start Date End Date Francisco Cisse MD [address] [place] [id number] PCP - General Internal Medicine 09/04/21 documented as of this encounter
--- OUTSIDE RECORDS SUMMARY | 2023-11-26 12:37 | External Medical Summary | Summary of Care ---
Author Name Unknown Organization [facility] Address [address] [place] [address] Phone [phone] Care Team Providers Care Machine Clerical Verifier Name Role Phone Francisco Cisse MD Primary Care Provider + Reason for Referral * Evaluate & Treat - Unlimited Visits (Within 10 days (routine)) - Authorized Specialty Diagnoses / Procedures Referred By Chacho fleming Referred To Contact Pharmacist / Pharmacy Diagnoses Psoriasis Loni Gallardo MD 200 [place] [address] Referral ID Status Reason Start Date Expiration Date Visits Requested Visits Authorized [id number] Authorized Specialty Services Required 07/02/2023 99 99 Question Answer Referral Priority Within 10 days (routine) Department: Specialist Specialty: Derm Reason for Referral: UVB light therapy Comments Pharmacist Medication Therapy Management: Minimum frequency patient should be seen in person for medication management: as appropriate per clinical condition and patient status By my signature, I understand that my patient Luis Hale will have his medication therapy managed by the [facility] Medication Therapy Disease Management Clinic ([facility]) per established policies, procedures, and protocols. I also certify that this referral may serve as an initiation of service for the management of drug therapy in the above noted patient. [facility] providers will be responsible for scheduling patient visits, obtaining appropriate laboratory studies, and adjusting medication management therapy per patient's need, in addition to those roles spelled out in the clinic policy, procedures, and drug management protocols. I understand that the service provided by the [facility] Clinic is voluntary and have informed patient that they can refuse the service at their discretion. I am aware that the [facility] Clinic will provide me with a copy of the patient encounter via my [employer] InBasket. I authorize the [facility] Clinic to carry out these activities on my behalf. I consider this program to be a necessary part of the patient's medical care. Encounter Details Date Type Department Care Team Description 06/29/2023 Telephone [facility]atology [facility] [place] [address] [place] [address] Loni Gallardo MD [address] [facility] [address] [place] [address] Allergies No known active allergiesdocumented as of this encounter (statuses as of 09/10/2023) Medications Medication Sig Dispensed Refills Start Date End Date Status Tylenol 325 MG Oral Capsule (Acetaminophen) Take 650 mg by mouth every 8 hours as needed for Pain (fever). 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 90 Tablet 1 3 Active Lactulose 10 GM Oral Packet (Kristalose)Indic ations:Cirrhosis of liver without ascites, unspecified hepatic cirrhosis [...] Oral Capsule 1 Capsule. 0 3 Active Allopurinol 100 MG Oral Tablet (Zyloprim)Indicat ions:Gout of big toe Take 2 Tabs by mouth daily. 180 Tab 2 1 07/30/20 23 Discontinued(Ref ill) Pantoprazole Sodium 40 MG Oral Tablet Delayed Release (Protonix)Indicat ions:GAVE (gastric antral vascular ectasia) Take 1 Tablet by mouth in the morning and 1 Tablet in the evening. 60 Tablet 5 3 09/01/20 23 Discontinued(Ref ill) Finasteride 5 MG Oral Tablet (Proscar) Take 1 Tablet by mouth in the morning. 90 Tablet 3 3 09/01/20 23 Discontinued(Ref ill) rifAXIMin 550 MG Oral Tablet (Xifaxan) Take 1 Tablet by mouth in the morning and 1 Tablet before bedtime. 180 Tablet 5 3 09/01/20 23 Discontinued(Ref ill) Lactulose 10 GM/15ML Oral Solution (Constulose)Indic ations:Other cirrhosis of liver (HCC) Take 15 mL by mouth in the morning and 15 mL before bedtime. 2700 mL 6 3 08/07/20 23 Discontinued(Med ication/Dose Changed) Repaglinide 1 MG Oral TabletIndications :Type 2 diabetes mellitus with stage 3a chronic kidney disease, without long-term current use of insulin (HCC) Take 1 Tablet by mouth in the morning and 1 Tablet at noon and 1 Tablet in the evening. Take with meals. 15 minutes before each meal. 90 Tablet 5 3 08/14/20 23 Discontinued(Pat ient preference/disco ntinuation) Probiotic Multi-Enzyme Oral Tablet Take by mouth. 0 08/07/20 23 Discontinued(Med ication List Clean Up) Citalopram Hydrobromide 10 MG Oral Tablet (CeleXA)Indicatio ns:Anxiety state Take 1 Tablet by mouth in the morning. 90 Tablet 1 3 09/01/20 23 Discontinued(Ref ill) Zinc Acetate 50 MG Oral Capsule 50 mg. 0 3 08/07/20 23 Discontinued(Med ication List Clean Up) Multivitamin Adults Oral Tablet 1 Tablet. 0 3 08/07/20 23 Discontinued(Med ication List Clean Up) Lantus SoloStar 100 UNIT/ML Subcutaneous Solution Pen-injectorIndic ations:Type 2 diabetes mellitus with hemoglobin A1c goal of less than 7.0% (HCC) Inject 20 Units under the skin daily with dinner. 15 mL 3 3 08/07/20 23 Discontinued Furosemide 20 MG Oral Tablet (Lasix)Indication s:Cirrhosis of liver with ascites, unspecified hepatic cirrhosis type Take 2 Tablets by mouth in the morning. 60 Tablet 2 3 07/28/20 23 Discontinued(Ref ill) Ondansetron HCl 4 MG Oral TabletIndications :Nausea without vomiting,Liver cell carcinoma (HCC),GAVE (gastric antral vascular ectasia) Take 1 Tablet by mouth every 8 hours as needed for Nausea. 30 Tablet 0 3 08/07/20 23 Discontinued(Pat ient preference/disco ntinuation) Hospital, Clinic, or Other Facility Administered Medication [...] as of this encounter (statuses as of 09/10/2023) Active Problems Problem Noted Date Closed T12 spinal fracture 07/12/2023 Restrictive ventilatory defect Lung disease, restrictive 04/05/2023 Pulmonary hypertension 02/01/2023 [...] as of this encounter (statuses as of 09/10/2023) Resolved Problems Problem Noted Date Resolved Date [...] as of this encounter (statuses as of 09/10/2023) Immunizations Name Administration Dates Next Due COVID-19 mRNA, LNP-s, No Pre serve, 2-Dose Series (Gaopeng) 03/08/2021,02/15/2021 HepA Inact/HepB Recomb>=18yrs old 12/04/2019,04/2019,05/20/2019 11/19/2019 PPD 06/18/2017, 3,01/09/2012,06/2011 Pneumococcal Conjugate Vacc, 13 Valent (Prevnar) 05/01/2017 Pneumococcal Polysaccharide PPV23 (Pneumovax) 08/28/2022,10/25/2015,07/14/2012 SEASONAL INFLUENZA, PF, 6 M & Above, IM , (FLULAVAL or FLUZONE) 09/04/2017 Season Influenza, Quad, PF, Adjuvanted, 65+ Yrs, IM (FLUAD) 10/07/2020(Deferred: Patient Refused - pt says he already had his shot last month at [facility] Handy Lyons and Mckinley Cobian made [...] encounter Miscellaneous Notes * Telephone Encounter - ESTELLE Mcbride - 09/10/2023 8:41 AM EDT Patient called back and is rescheduled for his light education visit. When responding, please reply to the [facility] Pool [[id number]]. Thanks! ESTELLE Mcbride * Telephone Encounter - ESTELLE Mcbride - 07/25/2023 9:45 AM EDT Spoke with patient and he is scheduled. He requested Saturday because he is having back surgery on Saturday. When responding, please reply to the [facility] Pool [[id number]]. Thanks! ESTELLE Mcbride * Telephone Encounter - ESTELLE Mcbride - 07/19/2023 3:56 PM EDT Spoke with the patient. He wants to wait until he get the unit to schedule. He said he isn't sure when it was coming. His son is going to put it together and he will call us back to schedule. I will follow up next week. * Telephone Encounter - Kristen Almanza formerly [facility] - 07/19/2023 3:37 PM EDT Dermatology Pharmacist Appointment Request Homelight unit has shipped. Please schedule telephonic light education visit with patient. Department & Provider: Dermatology [place] [facility] [[id number]] - Pharmacist Dermatology [place] [[id number]] Patient to be scheduled for visit type:Telephonic [[id number]] Length of visit: 30 mins Time Frame: within ~1-2 weeks Please route this encounter back to Dermatology Pharmacist Pool [[id number]] if unable to schedule patient after 3 attempts. Kristen Almanza PharmD,[place] Medication Therapy Disease Management Dermatology Department 07/19/2023, 3:38 PM * Telephone Encounter - Kristen Almanza RPh - 07/02/2023 9:57 AM EDT Order submitted to ID: -[id number] Kristen Almanza PharmD,[place]IE Medication Therapy Disease Management Dermatology Department 07/02/2023, 9:57 AM * Telephone Encounter - Loni Gallardo MD - 06/29/2023 12:59 PM EDT Dermatology Pre-Cert Request Medication/Disease State Information: Medication: Home UVB: Panosol 3D - full body, 10 lamp/6ft, II; Fair skin, blue eyes. Mata easily, bennett poorly Diagnosis (including ICD-10): Psoriasis - Psoriasis vulgaris L40.0 Site of Care: specialty medication - route to [id number]. Referral to pharmacist for: Pharmacist Co-management See corresponding visit note(s) for additional supporting clinical information. Office Information: Prescriber: Loni Gallardo MD documented in this encounter Plan of Treatment Upcoming Encounters Date Type Specialty Care Team Description 09/11/2023 Telemedicine Dermatology [place], Pharmacist Dermatology [address] [place] [address] 09/13/2023 Office Visit Orthopedic Surgery Clayton Vazquez MD [address] [place] [address] 09/26/2023 Imaging Radiology 09/30/2023 Office Visit Hematology Oncology Jennifer Ramires MD [address] [place] [address] 10/05/2023 Imaging Radiology 10/08/2023 Procedure Only Urology Frank Peraza MD [address] [facility] [address] [place] [address] 10/11/2023 Office Visit Internal Medicine Joaquin Snider PA-C [address] [place] [address] 11/13/2023 Office Visit Pharmacy Pharmacist2, [facility] [address] [facility] [place] [address] 12/13/2023 Office Visit Gastroenterology Lamar Tatum CRNP [address] [place] [address] 06/11/2024 Office Visit Ophthalmology Cody Gonzalez DO [address] [place] [address] Scheduled Procedures Name Priority Associated Diagnoses Date/Ti me COLONOSCOPY FLEXIBLE PROXIMAL DIAGNOSTIC Recall History of colonic polyps Portal hypertensive gastropathy (HCC) ESOPHAGOGASTRODUODENOSCOPY ( EGD), FLEXIBLE, TRANSORAL, DIAGNOSTIC Recall History of colonic polyps Portal hypertensive gastropathy (HCC) Scheduled Referrals Name Type Priority Associated Diagnoses Orde r Schedule PHARMACIST MEDS THERAPY MGMT REFERRAL OP Referral Within 10 days (routine) Psoriasis Ordered: 07/02/2023 Health Maintenance Due Date Last Done Comments Zoster Vaccines (1 of 2) 2000 COVID-19 Vaccine (3 - Pfizer risk series) 04/05/2021 03/08/2021, 02/15/2021 Depression Screening 05/03/2022 05/03/2021 Influenza Vaccine (FLU shot) (#1) 2023 09/15/2021, 09/15/2021, 09/30/2020, Additional history exists HbA1c 11/27/2023 05/28/2023, 01/03, 10/10/2022, Additional history exists DIABETES-EYE EXAM 01/17/2024 01/17/2023, , 01/17/2023, Additional history exists CKD PHOS USE SMARTSET 52723 01/28/202401/03, 07/26/2022, 12/05/2021, Additional history exists GFR 02/28/2024 08/30/2023, 07/03, 07/12/2023, Additional history exists Diabetic Foot Exam 03/06/2024 03/06/2023, 0 01/03/2022, 03/02/2021, Additional history exists Albumin/Creatinine Ratio 07/12/2024 023, 10/01/2022, 09/11/2021, Additional history exists COLONOSCOPY-ANNUAL AGES 18-100 08/09/2024 08/09/2023, 11/07/2022, 04/12/2022, Additional history exists CKD HGB USE SMARTSET 85064 08/30/202408/30, 08/30/2023, 08/26/2023, Additional history exists Lipid [...] this encounter Medical Devices Implanted Type Area Emergency Medicine Physician Assistant Device Identifier Shelf Expiration Date Model / Serial / Lot Clareon Iol Aspheric Hydrophobic Acrylic Iol Implanted:Qty: 1 on 04/23/2023 by Cody Gonzalez DO at OR [facility] Lens Left: Eye 11/12/2025 CNA0T0 / [id number] / Viatorr Tips Endoprosthesis 8-10 Mm X 8cm / 2cm Implanted:Qty: 1 on 10/07/2020 by Go Alvarado MD at [facility] Right: Abdomen 03/03/2023 [id number] / / [id number] Description:Viatorr TIPS End oprosthesis 8-10 mm x 8cm / 2cm, Manufactored by [employer] Syr Pf 2ml Embospheres 100-300 - [id number] Implanted:Qty: 1 on 04/18/2021 by Kevin Lim DO at OR [facility] Left: Abdomen [employer] [id number] 11/25/2023 S220GH / / [id number] -[id number] Syr Pf 2ml Embospheres 100-300 - [id number] Implanted:Qty: 1 on 03/28/2022 at [facility] [employer] [id number] 08/31/2024 S220GH / / [id number] -5 Clareon Iol Aspheric Hydrophobic Acrylic Iol Implanted:Qty: 1 on 04/02/2023 by Cody Gonzalez DO at OR [facility] Right: Eye JAZMIN 11/12/2025 CNA0T0 / [id number] / documented as of this encounter Visit Diagnoses Diagnosis Psoriasis- Primary Other psoriasis documented in this encounter Advance Directives Documents on File Type Date Recorded 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 No Full Code 07/22/2014 9:56 PM 07/24/2014 8:18 PM This order reflects the patients wishes and were consensually agreed upon. Question Answer Comments Discussion of Advance Directives occurred with: Patient Does the patient have a Living Will? No Does the patient have Health Care Power of Escalator Operator? No Care Teams Machine Clerical Verifier Relationship Specialty Start Date End Date Francisco Cisse MD [address] [place] [address] PCP - General Internal Medicine 09/04/21 documented as of this encounter
--- OUTSIDE RECORDS SUMMARY | 2023-11-26 12:37 | External Medical Summary | Summary of Care ---
Author Name Unknown Organization [facility] Address [address] [facility] [place] [address] Phone [phone] Care Team Providers Care Investment Counselor Name Role Phone Francisco Cisse MD Primary Care Provider + Reason for Visit * Reason Onset Date Comments Medication Refill 09/01/2023 Encounter Details Date Type Department Care Team Description 09/01/2023 Refill Gastroenterology, [facility] [address] [place] [address] Angie Barbosa CRNP [address] [place] [address] Hepatic encephalopathy (HCC)*; Cirrhosis of liver (HCC) Allergies No known active allergiesdocumented as of this encounter (statuses as of 09/02/2023) Medications Medication Sig Dispensed Refills Start Date End Date Status Tylenol 325 MG Oral Capsule (Acetaminophen) Take 650 mg by mouth every 8 hours as needed for Pain (fever). 0 Active OneTouch Verio In Vitro Strip (Glucose Blood)Indications:T ype 2 diabetes mellitus with hemoglobin A1c goal of less than 7.0% ([facility]) Use to test blood sugars [...] 07/30/2023 Active Allopurinol 100 MG Oral Tablet (Zyloprim)Indicatio [...] mouth in the morning. 90 Tablet 3 01/29/2023 09/01/20 23 Discontinu ed(Refill) rifAXIMin 550 MG Oral Tablet (Xifaxan) Take 1 Tablet by mouth in the morning and 1 Tablet before bedtime. 180 Tablet 5 01/29/2023 09/01/20 23 Discontinu ed(Refill) Citalopram Hydrobromide 10 MG Oral Tablet (CeleXA)Indications :Anxiety state Take 1 Tablet by mouth in the morning. 90 Tablet 1 04/08/2023 09/01/20 Discontinu ed(Refill) Hospital, Clinic, or Other Facility [...] as of this encounter (statuses as of 09/02/2023) Active Problems Problem Noted Date Closed T12 [...] as of this encounter (statuses as of 09/02/2023) Resolved Problems Problem Noted Date Resolved Date [...] as of this encounter (statuses as of 09/02/2023) Immunizations Name Administration Dates Next Due COVID-19 mRNA, LNP-s, No Pre serve, 2-Dose Series ([employer]) 03/08/2021,02/15/2021 HepA Inact/HepB Recomb>=18yrs old 12/04/2019,04/2019,05/20/2019 11/19/2019 PPD 06/18/2017, 3,01/09/2012,06/2011 Pneumococcal Conjugate Vacc, 13 Valent (Prevnar) 05/01/2017 Pneumococcal Polysaccharide PPV23 (Pneumovax) 08/28/2022,10/25/2015,07/14/2012 SEASONAL INFLUENZA, PF, 6 M & Above, IM , (FLULAVAL or FLUZONE) 09/04/2017 Season Influenza, Quad, PF, Adjuvanted, 65+ Yrs, IM (FLUAD) 10/07/2020(Deferred: Patient Refused - pt says he already had his shot last month at [facility] Handy Lyons and Mckinley Cobian made [...] encounter Miscellaneous Notes * Telephone Encounter - JEFF Mccabe - 09/02/2023 3:07 PM EDTSigned Prescriptions: Disp Refills rifAXIMin 550 MG Oral Tablet (Xifaxan) 180 Ta*5 Sig: Take 1 Tablet by mouth in the morning and 1 Tablet before bedtime. Authorizing Provider: ANGIE BARBOSA * Telephone Encounter - Michelle Peres RN - 09/02/2023 1:40 PM EDTPending Prescriptions: Disp Refills rifAXIMin 550 MG Oral Tablet (Xifaxan) 180 Ta*5 Sig: Take 1 Tablet by mouth in the morning and 1 Tablet before bedtime. * Telephone Encounter - Michelle Peres RN - 09/02/2023 1:38 PM EDT Did you pend patient's preferred pharmacy and medication before forwarding?yes Pharmacy: [facility] [address] [place] [address] [place] [address] Pending Prescriptions: Disp Refills rifAXIMin 550 MG Oral Tablet (Xifaxan) 180 Ta*5 Sig: Take 1 Tablet by mouth in the morning and 1 Tablet before bedtime. Last Visit: 08/30/2023 (in office), 05/08/2021 (telemedicine) Patient Phone Numbers Labs: Lab Results Component Value Date/Time CREAT 1.2 08/30/2023 11:23 AM CREAT 1.11 07/24/2023 12:00 AM CREAT 1.5 (H) 11/30/2020 11:06 AM POTASSIUM 4.2 08/30/2023 11:23 AM POTASSIUM 4.3 07/24/2023 12:00 AM POTASSIUM 4.1 11/30/2020 11:06 AM TSH 2.62 03/15/2023 11:21 AM TSH 2.36 10/24/2020 01:56 PM LDLCALC 43 01/28/2023 09:00 AM LDLCALC 34 08/15/2020 10:35 AM LDLDIRECT NOT APPLICABLE 06/06/2020 02:58 PM LDLDIRECT 44 01/15/2018 03:24 PM ALT 29 08/30/2023 11:23 AM ALT 28 11/30/2020 11:06 AM HGBA1C 5.3 05/28/2023 12:14 PM HGBA1C 5.4 07/18/2021 02:28 PM HGBA1C 6.0 (H) 11/07/2020 01:07 PM documented in this encounter Plan of Treatment Upcoming Encounters Date Type Specialty Care Team Description 09/06/2023 Office Visit Pharmacy Pharmacist2, [facility] [address] [facility] [place] [address] 09/13/2023 Office Visit [place] [address] [place], [place] [address] [address] 09/26/2023 Imaging Radiology 09/30/2023 Office Visit Hematology Oncology Jennifer Ramires MD [address] [facility] [place] [address] 10/05/2023 Imaging Radiology 10/08/2023 Procedure Only Urology Frank Peraza MD [address] [place] [address] 10/11/2023 Office Visit Internal Medicine Joaquin Snider PA-C [address] [place] [facility] [place] [address] 12/13/2023 Office Visit Gastroenterology Angie Barbosa CRNP [address] [place] [address] 06/11/2024 Office Visit Ophthalmology Cody Gonzalez DO [address] [place] [address] Scheduled Procedures Name Priority Associated Diagnoses [...] Additional history exists CKD PHOS USE SMARTSET 69420 01/28/202401/03, 07/26/2022, 12/05/2021, Additional history exists GFR 02/28/2024 08/30/2023, 07/03, 07/12/2023, Additional history exists Diabetic Foot Exam 03/06/2024 03/06/2023, 0 01/03/2022, 03/02/2021, Additional history exists Albumin/Creatinine Ratio 07/12/2024 023, 10/01/2022, 09/11/2021, Additional history exists COLONOSCOPY-ANNUAL AGES 18-100 08/09/2024 08/09/2023, 11/07/2022, 04/12/2022, Additional history exists CKD HGB USE SMARTSET 66175 08/30/202408/30, 08/30/2023, 08/26/2023, Additional history exists Lipid [...] this encounter Medical Devices Implanted Type Area Equipment Hire Manager Device Identifier Shelf Expiration Date Model / Serial / Lot Clareon Iol Aspheric Hydrophobic Acrylic Iol Implanted:Qty: 1 on 04/23/2023 by Cody Gonzalez DO at OR [facility] Lens Left: Eye 11/12/2025 [id number] / [id number] / Viatorr Tips Endoprosthesis 8-10 Mm X 8cm / 2cm Implanted:Qty: 1 on 10/07/2020 by Go Alvarado MD at [facility] Right: Abdomen 03/03/2023 [id number] / / [id number] Description:Viatorr TIPS End oprosthesis 8-10 mm x 8cm / 2cm, Manufactored by [employer] Syr Pf 2ml Embospheres 100-300 - [id number] Implanted:Qty: 1 on 04/18/2021 by Kevin Lim DO at OR [facility] Left: Abdomen [employer] [id number] 11/25/2023 S220GH / / [id number] Syr Pf 2ml Embospheres 100-300 - [id number] Implanted:Qty: 1 on 03/28/2022 at [facility] [employer] [id number] 08/31/2024 S220GH / / [id number] -5 Clareon Iol Aspheric Hydrophobic Acrylic Iol Implanted:Qty: 1 on 04/02/2023 by Cody Gonzalez DO at OR [facility] Right: Eye JAZMIN 11/12/2025 CNA0T0 / [id number] / documented as of this encounter Visit Diagnoses Diagnosis Hepatic encephalopathy (HCC)- Primary Hepatic encephalopathy Cirrhosis of liver (HCC) Cirrhosis of liver without mention of alcohol documented in this encounter Advance Directives Documents on File Type Date Recorded Patient General Internal Medicine Physician Expl anation Advance Directives and Living Will 12/11/2022 ADVANCE DIRECTIVE / LIVING WILL LIVING WILL Power of Hazmat Truck Driver 12/11/2022 POWER OF A TTORNEY Latest Code [...] the patient have Health Care Power of Hazmat Truck Driver? No Full Code 07/22/2014 9:56 PM 07/24/2014 8:18 PM This order reflects the patients wishes and were consensually agreed upon. Question Answer Comments Discussion of Advance Directives occurred with: Patient Does the patient have a Living Will? No Does the patient have Health Care Power of Hazmat Truck Driver? No Care Teams Investment Counselor Relationship Specialty Start Date End Date Francisco Cisse MD [address] [place] [address] PCP - General Internal Medicine 09/04/21 documented as of this encounter
--- OUTSIDE RECORDS SUMMARY | 2023-11-26 12:37 | External Medical Summary | Summary of Care ---
Author Name Unknown Organization [facility] Address [address] [place] [address] Phone [phone] Care Team Providers Care Postmaster Relief Name Role Phone Francisco Cisse MD Primary Care Provider + Reason for Visit * Reason Comments Dosage Adjustment Via Phone (anticoag Cl inic) Encounter Details Date Type Department Care Team Description 09/11/2023 Telemedicine Dermatology [facility] [address] [place] [address] [place], Pharmacist Dermatology [address] [place] [address] Psoriasis* Allergies No known active allergiesdocumented as of this encounter (statuses as of 09/11/2023) Medications Medication Sig Dispensed Refills Start Date [...] 30 MG Oral Capsule Delayed Release Particles (Cymbalta)Indication s:Other closed fracture of twelfth thoracic vertebra with delayed healing, subsequent encounter Take 1 Capsule by mouth in the morning for 7 days. Take for 1 week. Then increase to the 60mg capsule.. 7 Capsule 0 09/06/2023 3 Active DULoxetine HCl 60 MG Oral Capsule Delayed Release Particles (Cymbalta)Indication s:Other closed fracture of twelfth thoracic vertebra with delayed healing, subsequent encounter Take 1 Capsule by mouth in the morning. 90 Capsule 3 09/06/2023 Active Hospital, Clinic, or Other Facility Administered [...] as of this encounter (statuses as of 09/11/2023) Active Problems Problem Noted Date Closed T12 [...] as of this encounter (statuses as of 09/11/2023) Resolved Problems Problem Noted Date Resolved Date [...] as of this encounter (statuses as of 09/11/2023) Immunizations Name Administration Dates Next Due COVID-19 mRNA, LNP-s, No Pre serve, 2-Dose Series ([employer]) 03/08/2021,02/15/2021 HepA Inact/HepB Recomb>=18yrs old 12/04/2019,04/2019,05/20/2019 11/19/2019 PPD 06/18/2017, 3,01/09/2012,0306/2011 Pneumococcal Conjugate Vacc, 13 Valent (Prevnar) 05/01/2017 Pneumococcal Polysaccharide PPV23 (Pneumovax) 08/28/2022,10/25/2015,07/14/2012 SEASONAL INFLUENZA, PF, 6 M & Above, IM , (FLULAVAL or FLUZONE) 09/04/2017 Season Influenza, Quad, PF, Adjuvanted, 65+ Yrs, IM (FLUAD) 10/07/2020(Deferred: Patient Refused - pt says he already had his shot last month at [facility] Handy Lyons and Mckinley Cobian made [...] as of this encounter Progress Notes * Kristen Sinhafreeman Almanza, [facility] - 09/11/2023 12:09 PM EDT After connecting to the patient via telephone, the patient was identified by name and date of . Patient was then informed that this was a telephone call only visit. The patient agreed to participate. Visit Disposition: Routine follow-up Total call duration was 25 minutes. Clinical Pharmacy Service (Dermatology): Medication Education Dermatology Provider: Dr. Gallardo Pharmacist Referral for: Med Education Only Visit: Med Education Only Disease Type: Autoimmune: Psoriasis - Psoriasis vulgaris L40.0 PLAN OF ACTION START Panosol 3D - full body, 8 lamp/6ft Skin Type: 2 EDUCATION Home Light Therapy: Reviewed [employer] Operation Manual with patient for their specific home light box with specific details listed below. Reviewed intended use of therapy and that any use of the device exceptas prescribed by their physician may be hazardous. Reviewed home light therapy is only intended foruse for patient it is prescribed to. Reviewed patient should not repeat treatments within a 24hr period. Reminded patient to not leave device unattended and to remove the device carter from the device when not in use. Reviewed that the box is never to be used for cosmetic tanning. Reviewed with patient if they start any new medications to inform prescriber they are utilizing a home light box because some medications may make you more photosensitive. If unsure, call clinic and ask if safe to continue treatments while on therapy. Adverse reactions of home light therapy may include excessive erythema, pruritis (itching), and pigmentation change. Reviewed that results of light therapy can be seen in approx. 8-12 weeks. Reviewed for the patient to cover all areas of body except areas they are treating. Reviewed importance of using safety UV blocking googles for treatments to protect their eyes. Reviewed with patient to follow the psoriasis protocol for their specific light box. Reviewed patient's skin classification determined by their physician as to where to begin treatment times at. Reviewed example of how to titrate light therapy based upon erythemal response. Directed patient to page14 for maintenance phase for psoriasis and helped explain the process of how to step up or step down on therapy. Patient aware to contact clinic with any concerns/issues using light box. Also, provided national biological contact information for any box specific questions or troubleshooting. Follow-Up Appointment: Physician: sent to scheduling Kristen Almanza [facility] Medication Therapy Disease Management Dermatology Department 09/11/2023, 12:11 PM documented in this encounter Plan of Treatment Upcoming Encounters Date Type Specialty Care Team Description 09/13/2023 Office Visit Orthopedic Surgery Clayton Vazquez MD [address] [place] [address] [place] [address] 09/26/2023 Imaging Radiology 09/30/2023 Office Visit Hematology Oncology Jennifer Ramires MD [address] [place] [address] 10/05/2023 Imaging Radiology 10/08/2023 Procedure Only Urology Frank Peraza MD [address] [facility] [address] [place] [address] 10/11/2023 Office Visit Internal Medicine Joaquin Snider PA-C [address] [facility] [facility] [address] 11/13/2023 Office Visit Pharmacy Pharmacist2, [facility] [address] [place] [address] 12/13/2023 Office Visit Gastroenterology Lamar Tatum CRNP [address] [place] [address] 03/13/2024 Office Visit Dermatology Francisco Watson MD [address] [place] [address] 06/11/2024 Office Visit Ophthalmology Cody Gonzalez, DO [address] [facility] [place] [address] Scheduled Procedures Name Priority Associated Diagnoses Date/Ti [...] Additional history exists CKD PHOS USE SMARTSET 36357 01/28/202401/03, 07/26/2022, 12/05/2021, Additional history exists GFR 02/28/2024 08/30/2023, 07/03, 07/12/2023, Additional history exists Diabetic Foot Exam 03/06/2024 03/06/2023, 0 01/03/2022, 03/02/2021, Additional history exists Albumin/Creatinine Ratio 07/12/2024 023, 10/01/2022, 09/11/2021, Additional history exists COLONOSCOPY-ANNUAL AGES 18-100 08/09/2024 08/09/2023, 11/07/2022, 04/12/2022, Additional history exists CKD HGB USE SMARTSET 57260 08/30/202408/30, 08/30/2023, 08/26/2023, Additional history exists Lipid [...] this encounter Medical Devices Implanted Type Area Shirt Trimmer Device Identifier Shelf Expiration Date Model / Serial / Lot Clareon Iol Aspheric Hydrophobic Acrylic Iol Implanted:Qty: 1 on 04/23/2023 by Cody Gonzalez DO at OR [facility] Lens Left: Eye 11/12/2025 CNA0T0 / [id number] / Viatorr Tips Endoprosthesis 8-10 Mm X 8cm / 2cm Implanted:Qty: 1 on 10/07/2020 by Go Alvarado MD at [facility] Right: Abdomen 03/03/2023 [id number] / / [id number] Description:Viatorr TIPS End oprosthesis 8-10 mm x 8cm / 2cm, Manufactored by [employer] Syr Pf 2ml Embospheres 100-300 - [id number] Implanted:Qty: 1 on 04/18/2021 by Kevin Lim DO at OR [facility] Left: Abdomen [employer] [id number] 11/25/2023 S220GH / / [id number] Syr Pf 2ml Embospheres 100-300 - [id number] Implanted:Qty: 1 on 03/28/2022 at [facility] [employer] [id number] 08/31/2024 S220GH / / [id number] -5 Clareon Iol Aspheric Hydrophobic Acrylic Iol Implanted:Qty: 1 on 04/02/2023 by Cody Gonzalez DO at OR [facility] Right: Eye JAZMIN 11/12/2025 CNA0T0 / [id number] / documented as of this encounter Visit Diagnoses Diagnosis Psoriasis- Primary Other psoriasis documented in this encounter Advance Directives Documents on File Type Date Recorded 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 No Full Code 07/22/2014 9:56 PM 07/24/2014 8:18 PM This order reflects the patients wishes and were consensually agreed upon. Question Answer Comments Discussion of Advance Directives occurred with: Patient Does the patient have a Living Will? No Does the patient have Health Care Power of Welcome Wagon Hostess? No Care Teams Postmaster Relief Relationship Specialty Start Date End Date Francisco Cisse MD [address] [place], [place] [address] PCP - General Internal Medicine 09/04/21 documented as of this encounter
--- OUTSIDE RECORDS SUMMARY | 2023-11-26 12:38 | External Medical Summary ---
Author Name Unknown Address Unknown Organization K0[facility] [address] [place] [address] Laboratory Report Ordering Provider Test Date Status CHELSEY ADAMS 08/30/2023 11:23:49 Final Observation Date Value Abnormality Reference (Units ) Status BUN 08/30/2023 11:23:49 23 Above high normal 6-20 (mg/dL) Final Creatinine 08/30/2023 11:23:49 1.2 0.6-1.2 (mg/dL) Final Glomerular filtration rate/1.73 sq M.predicted [Volume Rate/Area] in Serum, Plasma or Blood by Creatinine-based formula (CKD-EPI) 08/30/2023 11:23:49 67 >=60 (mL/min) Final eGFR is calculated based on the CKD-EPI 2020 equation SODIUM 08/30/2023 11:23:49 141 135-146 (m mol/L) Final Potassium 08/30/2023 11:23:49 4.2 3.5-5.1 (m mol/L) Final Cl 08/30/2023 11:23:49 109 Above high normal 98 -107 (mmol/L) Final CO2 08/30/2023 11:23:49 22 22-32 (mmo l/L) Final Anion gap 08/30/2023 11:23:49 10 7-15 (mmol /L) Final Glucose 08/30/2023 11:23:49 192 Above high normal 70 -120 (mg/dL) Final Albumin 08/30/2023 11:23:49 3.1 Below low normal 3.8 -5.0 (g/dL) Final AST (Aspartate aminotransferase) 08/30/2023 11:23:49 49 10-50 (U/L) Fin al Alk Phos 08/30/2023 11:23:49 225 Above high normal 35 -130 (U/L) Final Bilirubin, Total 08/30/2023 11:23:49 1.9 Above high no rmal <=1.2 (mg/dL) Final Calcium 08/30/2023 11:23:49 8.4 8.4-10.2 ( mg/dL) Final Protein 08/30/2023 11:23:49 5.9 Below low normal 6.0 -8.3 (g/dL) Final ALT (Alanine aminotransferase) 08/30/2023 11:23:49 29 10-50 (U/L) Layo dye Performing Location [facility] [address] [facility] [address]
--- OUTSIDE RECORDS SUMMARY | 2023-11-26 12:38 | External Medical Summary | Summary of Care ---
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 60 Tablet 5 01/21/2023 Active Finasteride 5 MG Oral Tablet (Proscar) Take 1 Tablet by mouth in the morning. 90 Tablet 3 01/29/2023 Active rifAXIMin 550 MG Oral Tablet (Xifaxan) Take 1 Tablet by mouth in the morning and 1 Tablet before bedtime. 180 Tablet 5 01/29/2023 Active Mirtazapine 30 MG Oral Tablet (Remeron)Indication [...] (Acetylcysteine (Nutrient)) Take by mouth. 0 Active Citalopram Hydrobromide 10 MG Oral Tablet (CeleXA)Indications :Anxiety state Take 1 Tablet by mouth in the morning. 90 Tablet 1 04/08/2023 Active FreeStyle Wang 2 Sensor Use as directed. Every 14 days 2 Each 5 05/28/2023 Active Probiotic (Lactobacillus) Oral Capsule 1 Capsule. 0 05/17/2023 Active oxyCODONE HCl 5 MG Oral Tablet (Oxy IR)Indications:Othe r closed fracture of twelfth thoracic vertebra, initial encounter ([facility]) Take 1 Tablet by mouth every [...] for nausea 90 Tablet 3 08/30/2023 Active Hospital, Clinic, or Other Facility Administered [...] mRNA, LNP-s, No Pre serve, 2-Dose Series ([employer]) 03/08/2021,02/15/2021 HepA Inact/HepB Recomb>=18yrs old 12/04/2019,04/2019,05/20/2019 11/19/2019 PPD 06/18/2017, 3,01/09/2012,06/2011 Pneumococcal Conjugate Vacc, 13 Valent (Prevnar) 05/01/2017 Pneumococcal Polysaccharide PPV23 (Pneumovax) 08/28/2022,10/25/2015,07/14/2012 SEASONAL INFLUENZA, PF, 6 M & Above, IM , (FLULAVAL or FLUZONE) 09/04/2017 Season Influenza, Quad, PF, Adjuvanted, 65+ Yrs, IM (FLUAD) 10/07/2020(Deferred: Patient Refused - pt says he already had his shot last month at [facility] Handy Lyons and Mckinley Cobian made [...] Sign Reading Time Taken Comments Blood Pressure 106/58 08/30/2023 10:37 AM EDT Pulse 65 08/30/2023 10:37 AM EDT Temperature 36.6 C (97.9 F) 08/30/2023 1 0:37 AM EDT Respiratory Rate 16 08/30/2023 10:3 7 AM EDT Oxygen Saturation 98% 08/30/2023 10: 37 AM EDT Inhaled Oxygen Concentration - - Weight 77.9 kg (171 lb 12.8 oz) 023 10:37 AM EDT Height - - Body Mass Index 26.65 08/02/2023 7:45 AM EDT documented in this [...] as of this encounter Progress Notes * JEFF Mccabe - 09/02/2023 9:37 AM EDT MELD 3.0: 14 at 08/30/2023 11:23 AM Calculated from: Serum Creatinine: 1.2 mg/dL at 08/30/2023 11:23 AM Serum Sodium: 141 mmol/L (Using max of 137 mmol/L) at 08/30/2023 11:23 AM Total Bilirubin: 1.9 mg/dL at 08/30/2023 11:23 AM Serum Albumin: 3.1 g/dL at 08/30/2023 11:23 AM INR(ratio): 1.3 at 08/30/2023 11:23 AM Age at listin years Sex: Male at 08/30/2023 11:23 AM * JEFF Mccabe - 08/30/2023 5:21 AM EDT CC: f/u FOFANA cirrhosis with ascites post TIPs, prior HE, EV, HCC HPI: Recall that Mr. Luis Hale is a 73 yr old male pt of Dr. Hill with a hx of DM-2, FOFANA cirrhosis, obesity and psoriasis who presents today for recheck NAFLD cirrhosis. He transferred here from [facility] hepatology in July 2020. TIPs was completed on 10/07/20. Revision Jan 2021. Hx of TACE for HCC. On the liver transplant list,followed by [facility]. Followed by Hem/onc anemia clinic. Interim Hx: Hospitalized at [facility] for hep enceph and for hematochezia this summer. EGD/Colon w/o varices, proctitis or active bleeding. PHG was present. Small amt of red blood w 2 or 3 BMs a few days ago when constipated. Undergoing periodic taps on an as needed basis, most recent last week, 4.2L . Had a fall about 2 m ago, there was a plan for surgery by a local spinal surgeon but I had intervened as well ashis PCP and he was evaled at [facility] were he was told he was not a candidate for surgery due to the cirrhosis. Presents today w his son Alex. He has some help at home, meals on wheels; his son and daughter each check in on him and his daily. He and his son say his encephalopathy has sometimes been triggered by taking nausea meds which cause constipation. They request a script for reglan as it does notcause constipation. Denies any recent confusion, black BMs, excessive bleeding. Anemia: Hb 07/12/23 8.1 MELD 3.0: 17 at 05/28/2023 12:14 PM Calculated from: Serum Creatinine: 1.3 mg/dL at 05/28/2023 12:14 PM Serum Sodium: 142 mmol/L (Using max of 137 mmol/L) at 05/28/2023 12:14 PM Total Bilirubin: 3.8 mg/dL at 05/28/2023 12:14 PM Serum Albumin: 3.2 g/dL at 05/28/2023 12:14 PM INR(ratio): 1.2 at 05/28/2023 12:14 PM Age at listin years Sex: Male at 05/28/2023 12:14 PM Labs at [facility] since May MELD 15 - 17. Decompensations: EV: iradicated. Most recent EGD 08/09/23: portal hypertensive gastropathy, no varices Radiation Proctitis: Flex sig 02/01/22 and 04/12/22: APC'ed. No mention on Aug 2023 colonoscopy. Hepatic Encephalopathy: most recently July 2023 currently on Lactulose 15ml BID and Rifaximin. Ascites: Furosemide 40mg daily - Post TIPs and revision - Most recent paracentesis at [facility] 08/28/23 4.5L removed. Hx HCC: Liver MRI April 2023: 1. Post treatment changes in the liver, as detailed above, with findings equivocal for viable tumor (LR-TR equivocal). 2.5 x 2.1 cm and is equivocal for viable tumor. Follow-up isrecommended in 3 months. 2. Cirrhosis with portal hypertension and a moderate to large amount of ascites Screenings: Colonoscopy 08/09/23 - Preparation of the colon was fair. Two 5mm transverse colon polyps removed, moderate sigmoid/descending colon diverticulosis, internal hemorrhoids. Current GI Meds: reviewed. EXAM: BP 106/58 | Pulse 65 | Temp 36.6 C (97.9 F) | Resp 16 | Wt 77.9 kg (171 lb 12.8 oz) | SpO2 98% | BMI 26.65 kg/m | BSA 1.92 m GENERAL: 73 year old thin male who is AAO, well developed no acute distress SKIN: +psoriasis trunk, arms, legs; no ulcers, or spider angiomata; slight jaundice HEENT: normocephalic, sclera clear, pharynx normal NECK: supple, no lymphadenopathy, no masses or thyroid enlargement LUNGS: clear to auscultation anterior and posterior HEART: regular rate & rhythm, 3/6 systolic murmurs and no gallops ABDOMEN: normo-active bowel sounds, soft, non-tender, minimal ascites, non- distended no masses, no hepatosplenomegaly, no rebound or guarding, no bruits EXTREMITIES: no palmar erythema, no edema, no skin discoloration, no clubbing, no cyanosis NEURO: no lateralizing findings, Sensory/Motor grossly normal IMPRESSION/RECOMMENDATIONS: 73 year old male with 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 Warned that this med can cause tremors, agitation, difficulty sleep. Stop if any adverse reactions. - Continue low salt diet and avoidance of tylenol. - Cont anemia clinic f/u w Dr. Ramires Pt brought up that he feels that he will "probably never get a liver transplant - too old." We talked about him having some frailty for example the weak bones and frailty makes it more difficult to recover from a liver transplant. If pt decides that he does not want to continue to pursue transplant, we would change him to comfort measures which I explained. Pt did not indicate an interest in comfort measures at this time. Will plan to review MRI and possibly present to interdisciplinary tumor board meeting then contact the pt w a plan. Recheck office visit rajendra in 3m. I spent a total of 30 minutes on the date of service in review of patient's record, and previously obtained information in person and appropriate medical visit, discussion and education of plan, withpatient and/or caregiver, placing orders for tests/referral/procedures as medically necessary and documentation of pertinent clinical information in patient's medical records for their visit today. Thank you for the opportunity to be involved in the care of this patient. JEFF Mccabe documented in this encounter Nursing Notes * Radha Randhawa RN - 08/30/2023 10:39 AM EDT Patient identified by name and date of . Chief Complaint Patient presents with Follow Up Cirrhosis Symptoms: NO symptoms Bowel Movement Frequency: 4-5 liquid a day Bowel Movement Consistency: soft Straining: no Rectal Pain: no Blood in Stool: No documented in this encounter Plan of Treatment Upcoming Encounters Date Type Specialty Care Team Description 09/06/2023 Office Visit Pharmacy Pharmacist2, [facility] [address] [facility] [place] [address] 09/13/2023 Office Visit Orthopedic Surgery Clayton Vazquez MD [address] [place] [address] 09/26/2023 Imaging Radiology 09/30/2023 Office Visit Hematology Oncology Jennifer Ramires MD [address] [facility] [place] [address] 10/05/2023 Imaging Radiology 10/08/2023 Procedure Only Urology [facility] MD [address] [facility] [address] [place] [address] 10/11/2023 Office Visit Internal Medicine Joaquin Snider PA-C [address] [facility] [place] [address] 12/13/2023 Office Visit Gastroenterology Lamar Tatum CRNP [address] [place] [address] 06/11/2024 Office Visit Ophthalmology Cody Gonzalez DO [address] [place] [address] Scheduled Orders Name Type Priority Associated Diagnoses Orde r Schedule MRI LIVER W WO CONTRAST Medical Imaging Routine 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) HCC (hepatocellular carcinoma) (HCC) Expected: 09/06/2023, Expires: 09/29/2024 Scheduled Procedures Name Priority Associated Diagnoses Date/Ti [...] Additional history exists CKD PHOS USE SMARTSET 49769 01/28/202401/03, 07/26/2022, 12/05/2021, Additional history exists GFR 02/28/2024 08/30/2023, 07/03, 07/12/2023, Additional history exists Diabetic Foot Exam 03/06/2024 03/06/2023, 0 01/03/2022, 03/02/2021, Additional history exists Albumin/Creatinine Ratio 07/12/2024 023, 10/01/2022, 09/11/2021, Additional history exists COLONOSCOPY-ANNUAL AGES 18-100 08/09/2024 08/09/2023, 11/07/2022, 04/12/2022, Additional history exists CKD HGB USE SMARTSET 90253 08/30/202408/30, 08/30/2023, 08/26/2023, Additional history exists Lipid [...] this encounter Medical Devices Implanted Type Area Cascara Bark Cutter Device Identifier Shelf Expiration Date Model / Serial / Lot Clareon Iol Aspheric Hydrophobic Acrylic Iol Implanted:Qty: 1 on 04/23/2023 by Cody Gonzalez DO at OR [facility] Lens Left: Eye 11/12/2025 [id number] / [id number] / Viatorr Tips Endoprosthesis 8-10 Mm X 8cm / 2cm Implanted:Qty: 1 on 10/07/2020 by Go Alvarado MD at [facility] Right: Abdomen 03/03/2023 [id number] / / [id number] Description:Viatorr TIPS End oprosthesis 8-10 mm x 8cm / 2cm, Manufactored by [employer] Syr Pf 2ml Embospheres 100-300 - [id number] Implanted:Qty: 1 on 04/18/2021 by Kevin Lim DO at OR [facility] Left: Abdomen [employer] [id number] 11/25/2023 S220GH / / [id number] -[id number] Syr Pf 2ml Embospheres 100-300 - [id number] Implanted:Qty: 1 on 03/28/2022 at [facility] [employer] [id number] 08/31/2024 S220GH / / [id number] -[id number] Clareon Iol Aspheric Hydrophobic Acrylic Iol Implanted:Qty: 1 on 04/02/2023 by Cody Gonzalez DO at OR [facility] Right: Eye JAZMIN 11/12/2025 CNA0T0 / [id number] / documented as of this encounter Procedures Procedure Name Priority Date/Time Associated Diagnosis Comments COMPREHENSIVE METABOLIC PANEL Routine 08/30/2023 11:23 AM EDT 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) HCC (hepatocellular carcinoma) (HCC) ALPHA-FETOPROTEIN TUMOR MARKER Routine 08/30/2023 11:23 AM EDT Hepatocellular carcinoma (HCC) documented in this encounter Results * ALPHA-FETOPROTEIN TUMOR MARKER (08/30/2023 11:23 AM EDT) [facility] Alpha-Fetoprot ein Tumor Marker <1.8 0.0 - 8.3 ng/mL 08/31/2023 9:01 PM EDT [facility] Blood Venous blood specimen / Unknown Venipuncture / Unknown 08/30/2023 11:23 AM EDT 08/30/2023 11:23 AM EDT Demian Mancini MD LAB BLOOD ORDER DAVID [facility] [address] [place] [address] * (ABNORMAL) COMPREHENSIVE METABOLIC PANEL (08/30/2023 11:23 AM EDT) [facility] BUN 23(H) 6 - 20 mg/dL 08/30/2023 1:07 PM EDT [facility] Creatinine 1.2 0.6 - 1.2 mg/dL 08/30/2023 1:07 PM EDT [facility] [place] [facility] [facility] Estimated Glomerular Filtration Rate 67 >=60 mL/min 08/30/2023 1:07 PM EDT [facility] [place] [facility] [facility] Comment:eGFR is calculated b ased on the CKD-EPI 2020 equation Sodium 141 135 - 146 mmol/L 08/30/2023 1:07 PM EDT [facility] [place] [facility] Potassium 4.2 3.5 - 5.1 mmol/L 08/30/2023 1:07 PM EDT [facility] [place] [facility] Chloride 109(H) 98 - 107 mmol/L 08/30/2023 1:07 PM EDT [facility] [place] [facility] CO2 22 22 - 32 mmol/L 08/30/2023 1:07 PM EDT [facility] [place] [facility] Anion Gap 10 7 - 15 mmol/L 08/30/2023 1:07 PM EDT [facility] [place] [facility] [facility] Glucose 192(H) 70 - 120 mg/dL 08/30/2023 1:07 PM EDT [facility] [place] [facility] Albumin 3.1(L) 3.8 - 5.0 g/dL 08/30/2023 1:07 PM EDT [facility] [place] [facility] [facility] AST 49 10 - 50 U/L 08/30/2023 1:07 PM EDT [facility] [place] [facility] Alkaline Phosphatase 225(H) 35 - 130 U/L 08/30/2023 1:07 PM EDT [facility] [place] [facility] Bilirubin, Total 1.9(H) <=1.2 mg/dL 08/30/2023 1:07 PM EDT [facility] [place] [facility] Calcium 8.4 8.4 - 10.2 mg/dL 08/30/2023 1:07 PM EDT [facility] [place] Protein 5.9(L) 6.0 - 8.3 g/dL 08/30/2023 1:07 PM EDT [facility] [place] [facility] ALT 29 10 - 50 U/L 08/30/2023 1:07 PM EDT [facility] [place] [facility] Blood Venous blood specimen / Unknown Venipuncture / Unknown 08/30/2023 11:23 AM EDT 08/30/2023 11:23 AM EDT Lamar AGUILAR LAB BLOOD ORDERABL ES [facility] [place] [facility] [place] [address] documented in this encounter Visit Diagnoses Diagnosis 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 No Full Code 07/22/2014 9:56 PM 07/24/2014 8:18 PM This order reflects the patients wishes and were consensually agreed upon. Question Answer Comments Discussion of Advance Directives occurred with: Patient Does the patient have a Living Will? No Does the patient have Health Care Power of Television Production Clerk? No Care Teams Application Design Engineer Relationship Specialty Start Date End Date Francisco Cisse MD [address] [place] [id number] PCP - General Internal Medicine 09/04/21 documented as of this encounter
--- OUTSIDE RECORDS SUMMARY | 2023-11-26 12:38 | External Medical Summary ---
Author Name Unknown Address Unknown Organization [id number]:[facility] [address] [place] [address] Laboratory Report Ordering Provider Test Date Status CHELSEY ADAMS 08/30/2023 11:23:49 Final Anticoagulation may affect t esting. Refer to 640 Labs Test Catalog for a list of effects. Observation Date Value Abnormality Reference (Units ) Status aPTT panel - Platelet poor plasma 08/30/2023 11:23:49 35 21-38 (seconds) Final Performing Location [facility] [place] [address]
--- OUTSIDE RECORDS SUMMARY | 2023-11-26 12:38 | External Medical Summary | Summary of Care ---
Author Name Unknown Organization [facility] Address [address] [facility] [place] [address] Phone [phone] Care Team Providers Care Automatic Splicing Machine Operator Name Role Phone Francisco Cisse MD Primary Care Provider + Reason for Visit * Reason Comments Outpatient Testing Encounter Details Date Type Department Care Team Description 08/30/2023 Laboratory Laboratory, [facility] [address] [facility] [place] [address] [facility] [address] [facility] [place] [address] Cirrhosis of liver with ascites, unspecified hepatic cirrhosis type (HCC); 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); HCC (hepatocellular carcinoma) (HCC) Allergies No known active allergiesdocumented as of this encounter (statuses as of 08/30/2023) Medications Medication Sig Dispensed Refills Start Date [...] as of this encounter (statuses as of 08/30/2023) Active Problems Problem Noted Date Closed T12 [...] as of this encounter (statuses as of 08/30/2023) Resolved Problems Problem Noted Date Resolved Date [...] as of this encounter (statuses as of 08/30/2023) Immunizations Name Administration Dates Next Due COVID-19 mRNA, LNP-s, No Pre serve, 2-Dose Series ([employer]) 03/08/2021,02/15/2021 HepA Inact/HepB Recomb>=18yrs old 12/04/2019,04/2019,05/20/2019 11/19/2019 PPD 06/18/2017, 3,01/09/2012,0306/2011 Pneumococcal Conjugate Vacc, 13 Valent (Prevnar) 05/01/2017 Pneumococcal Polysaccharide PPV23 (Pneumovax) 08/28/2022,10/25/2015,07/14/2012 SEASONAL INFLUENZA, PF, 6 M & Above, IM , (FLULAVAL or FLUZONE) 09/04/2017 Season Influenza, Quad, PF, Adjuvanted, 65+ Yrs, IM (FLUAD) 10/07/2020(Deferred: Patient Refused - pt says he already had his shot last month at [facility] Handy Lyons and Mckinley Cobian [...] Team Description 09/06/2023 Office Visit Pharmacy Pharmacist2, [facility] [address] [facility] [place] [address] 09/13/2023 Office Visit Orthopedic Surgery Clayton Vazquez MD [address] [place] [address] 09/26/2023 Imaging Radiology 09/30/2023 Office Visit Hematology Oncology Jennifer Ramires MD [address] [facility] [place] [address] 10/05/2023 Imaging Radiology 10/08/2023 Procedure Only Urology Frank Peraza MD [address] [address] [place] [address] 10/11/2023 Office Visit Internal Medicine Joaquin Snider PA-C [address] [facility] [place] [address] 12/13/2023 Office Visit Gastroenterology Lamar Tatum CRNP [address] [place] [address] 06/11/2024 Office Visit Ophthalmology Cody Gonzalez DO [address] [place] [address] Pending Results Name Type Priority Associated Diagnoses Date /Time APTT Lab Routine Cirrhosis of liver with ascites, unspecified hepatic cirrhosis type (HCC) 08/30/2023 11:23 AM EDT PT INR Lab Routine Cirrhosis of liver with ascites, unspecified hepatic cirrhosis type (HCC) 08/30/2023 11:23 AM EDT CBC WITH WBC DIFFERENTIAL Lab Routine Cirrhosis of liver with ascites, unspecified hepatic cirrhosis type (HCC) 08/30/2023 11:23 AM EDT CBC Lab Routine Cirrhosis of liver with ascites, unspecified hepatic cirrhosis type (HCC) 08/30/2023 11:23 AM EDT DIFFERENTIAL, AUTOMATED Lab Routine Cirrhosis of liver with ascites, unspecified hepatic cirrhosis type (HCC) 08/30/2023 11:23 AM EDT Scheduled Procedures Name Priority Associated Diagnoses [...] 01/17/2024 01/17/2023, , 01/17/2023, Additional history exists GFR 01/24/2024 07/24/2023, 07/02, 06/29/2023, Additional history exists CKD PHOS USE SMARTSET 57099 01/28/202401/03, 07/26/2022, 12/05/2021, Additional history exists Diabetic Foot Exam 03/06/2024 03/06/2023, 0 01/03/2022, 03/02/2021, Additional history exists Albumin/Creatinine Ratio 07/12/2024 023, 10/01/2022, 09/11/2021, Additional history exists COLONOSCOPY-ANNUAL AGES 18-100 08/09/2024 08/09/2023, 11/07/2022, 04/12/2022, Additional history exists CKD HGB USE SMARTSET 95081 08/26/202408/26, 07/24/2023, 07/12/2023, Additional history exists Lipid Panel 01/28/2028 01/28/2023, [...] this encounter Medical Devices Implanted Type Area Director Customer Device Identifier Shelf Expiration Date Model / Serial / Lot Clareon Iol Aspheric Hydrophobic Acrylic Iol Implanted:Qty: 1 on 04/23/2023 by Cody Gonzalez DO at OR [facility] Lens Left: Eye 11/12/2025 CNA0T0 / [id number] / Viatorr Tips Endoprosthesis 8-10 Mm X 8cm / 2cm Implanted:Qty: 1 on 10/07/2020 by Go Alvarado MD at [facility] Right: Abdomen 03/03/2023 [id number] / / [id number] Description:Viatorr TIPS End oprosthesis 8-10 mm x 8cm / 2cm, Manufactored by [employer] Syr Pf 2ml Embospheres 100-300 - [id number] Implanted:Qty: 1 on 04/18/2021 by Kevin Lim DO at OR [facility] Left: Abdomen [employer] [id number] 11/25/2023 S220GH / / [id number] -5 Syr Pf 2ml Embospheres 100-300 - [id number] Implanted:Qty: 1 on 03/28/2022 at [facility] [employer] [id number] 08/31/2024 S220GH / / [id number] -[id number] Clareon Iol Aspheric Hydrophobic Acrylic Iol Implanted:Qty: 1 on 04/02/2023 by Cody Gonzalez DO at OR [facility] Right: Eye JAZMIN 11/12/2025 CNA0T0 / [id number] / documented as of this encounter Visit Diagnoses Diagnosis Cirrhosis of liver with ascites, unspecified hepatic cirrhosis type 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 No Full Code 07/22/2014 9:56 PM 07/24/2014 8:18 PM This order reflects the patients wishes and were consensually agreed upon. Question Answer Comments Discussion of Advance Directives occurred with: Patient Does the patient have a Living Will? No Does the patient have Health Care Power of Route Sales Trainee? No Care Teams Automatic Splicing Machine Operator Relationship Specialty Start Date End Date Francisco Cisse MD [address] [place] [address] PCP - General Internal Medicine 09/04/21 documented as of this encounter
--- OUTSIDE RECORDS SUMMARY | 2023-11-26 12:38 | External Medical Summary | Summary of Care ---
Author Name Unknown Organization [facility] Address [address] [facility] [place] [address] Phone [phone] Care Team Providers Care Patrol Guard Name Role Phone Francisco Cisse MD Primary Care Provider + Reason for Visit * Reason Onset Date Comments Medication Refill 09/01/2023 Encounter Details Date Type Department Care Team Description 09/01/2023 Refill General Internal Medicine [facility] [place] [address] [facility] [place] [address] Francisco Cisse MD 200 [facility] [place] [address] Anxiety state Allergies No known active allergiesdocumented as of [...] goal of less than 7.0% ([facility]) Use to test blood sugars 3 times a day 300 Strip 5 09/27/2022 Active BD Pen Needle Elizabeth 2nd Gen 32G X 4 MM USE DIRECTED TO ADMINISTER INSULIN AT DINNER DAILY 0 09/25/2022 Active Triamcinolone Acetonide 0.1 % External Cream (Aristocort) Apply to psoriatic lesions twice a day as needed for 2-3 weeks 453.6 g 0 11/21/2022 Active rifAXIMin 550 MG Oral Tablet (Xifaxan) Take 1 Tablet by mouth in the morning and 1 Tablet before bedtime. 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 90 Tablet 1 02/15/2023 Active Lactulose 10 GM Oral Packet (Kristalose)Indic [...] oxyCODONE HCl 5 MG Oral Tablet (Oxy IR)Indications:Ot her closed fracture of twelfth thoracic vertebra, initial encounter (HCC) Take 1 Tablet by mouth every 6 hours as needed for Pain, Severe. 28 Tablet 0 07/12/2023 Active Furosemide 20 MG Oral Tablet (Lasix)Indication s:Cirrhosis of liver with ascites, unspecified hepatic cirrhosis type Take 2 Tablets by mouth in the morning. 180 Tablet 3 07/30/2023 Active Allopurinol 100 MG Oral Tablet (Zyloprim)Indicat ions:Gout of big toe Take 2 Tablets by mouth in the morning. 180 Tablet 2 07/30/2023 Active Lantus 100 UNIT/ML Subcutaneous Solution Inject 22 Units under the skin every evening. With dinner 0 07/01/2023 Active oxygen IN GAS Use 2 L/min(Oxygen) as directed at bedtime. 0 Active Albumin Human 25 % Intravenous SolutionIndicatio ns:Cirrhosis of liver with ascites, unspecified hepatic cirrhosis type 25Gm before and after paracentesis 100 mL 0 08/22/2023 Active Metoclopramide HCl 5 MG Oral Tablet (Reglan) One tab as often as 3 times a day, if needed for nausea 90 Tablet 3 08/30/2023 Active Pantoprazole Sodium 40 MG Oral Tablet Delayed Release (Protonix)Indicat ions:GAVE (gastric antral vascular ectasia) Take 1 Tablet by mouth in the morning and 1 Tablet in the evening. 60 Tablet 5 09/02/2023 Active Finasteride 5 MG Oral Tablet (Proscar) Take 1 Tablet by mouth in the morning. 90 Tablet 1 09/02/2023 Active Citalopram Hydrobromide 10 MG Oral Tablet (CeleXA)Indicatio ns:Anxiety state Take 1 Tablet by mouth in the morning. 90 Tablet 1 09/02/2023 Active Finasteride 5 MG Oral Tablet (Proscar) Take 1 Tablet by mouth in the morning. 90 Tablet 3 01/29/2023 3 Discontinue d(Refill) Citalopram Hydrobromide 10 MG Oral Tablet (CeleXA)Indicatio ns:Anxiety state Take 1 Tablet by mouth in the morning. 90 Tablet 1 04/08/2023 3 Discontinue d(Refill) Hospital, Clinic, or Other Facility Administered Medication [...] mRNA, LNP-s, No Pre serve, 2-Dose Series ([employer]) 03/08/2021,02/15/2021 HepA Inact/HepB Recomb>=18yrs old 12/04/2019,04/2019,05/20/2019 11/19/2019 PPD 06/18/2017, 3,01/09/2012,0306/2011 Pneumococcal Conjugate Vacc, 13 Valent (Prevnar) 05/01/2017 Pneumococcal Polysaccharide PPV23 (Pneumovax) 08/28/2022,10/25/2015,07/14/2012 SEASONAL INFLUENZA, PF, 6 M & Above, IM , (FLULAVAL or FLUZONE) 09/04/2017 Season Influenza, Quad, PF, Adjuvanted, 65+ Yrs, IM (FLUAD) 10/07/2020(Deferred: Patient Refused - pt says he already had his shot last month at [facility] Handy Lyons and Mckinley Cobian made [...] encounter Miscellaneous Notes * Telephone Encounter - Amanda Resendez RPh - 09/02/2023 2:16 PM EDTSigned Prescriptions: Disp Refills Finasteride 5 MG Oral Tablet (Proscar) 90 Tab*1 Sig: Take 1 Tablet by mouth in the morning.Authorizing Provider: FRANCISCO CISSE User: MICKY RESENDEZ Citalopram Hydrobromide 10 MG Oral Tablet *90 Tab*1 Sig: Take 1 Tablet by mouth in the morning.Authorizing Provider: FRANCISCO CISSE User: AMANDA RESENDEZ documented in this encounter Plan of Treatment Upcoming Encounters Date Type Specialty Care Team Description 09/06/2023 Office Visit Pharmacy Pharmacist2, [facility] [address] [place], [place] [address] 09/13/2023 Office Visit Orthopedic Surgery Clayton Vazquez MD [address] [place] [address] 09/26/2023 Imaging Radiology 09/30/2023 Office Visit Hematology Oncology Jennifer Ramires MD [address] [place] [address] 10/05/2023 Imaging Radiology 10/08/2023 Procedure Only Urology Frank Peraza MD [address] [place] [address] [place] [phone] 10/11/2023 Office Visit Internal Medicine Joaquin Snider PA-C [address] [facility] [address] 12/13/2023 Office Visit Gastroenterology Lamar Tatum CRNP [address] [place] [address] 06/11/2024 Office Visit Ophthalmology Cody Gonzalez DO [address] [place] [phone] Scheduled Procedures Name Priority Associated Diagnoses Date/Ti [...] Additional history exists CKD PHOS USE SMARTSET 14999 01/28/202401/03, 07/26/2022, 12/05/2021, Additional history exists GFR 02/28/2024 08/30/2023, 07/03, 07/12/2023, Additional history exists Diabetic Foot Exam 03/06/2024 03/06/2023, 0 01/03/2022, 03/02/2021, Additional history exists Albumin/Creatinine Ratio 07/12/2024 023, 10/01/2022, 09/11/2021, Additional history exists COLONOSCOPY-ANNUAL AGES 18-100 08/09/2024 08/09/2023, 11/07/2022, 04/12/2022, Additional history exists CKD HGB USE SMARTSET 38586 08/30/202408/30, 08/30/2023, 08/26/2023, Additional history exists Lipid [...] this encounter Medical Devices Implanted Type Area Musician Instrumental Device Identifier Shelf Expiration Date Model / Serial / Lot Clareon Iol Aspheric Hydrophobic Acrylic Iol Implanted:Qty: 1 on 04/23/2023 by Cody Gonzalez DO at OR [facility] Lens Left: Eye 11/12/2025 CNA0T0 / [id number] / Viatorr Tips Endoprosthesis 8-10 Mm X 8cm / 2cm Implanted:Qty: 1 on 10/07/2020 by Go Alvarado MD at [facility] Right: Abdomen 03/03/2023 [id number] / / [id number] Description:Viatorr TIPS End oprosthesis 8-10 mm x 8cm / 2cm, Manufactored by [employer] Syr Pf 2ml Embospheres 100-300 - [id number] Implanted:Qty: 1 on 04/18/2021 by Kevin Lim DO at OR [facility] Left: Abdomen [employer] [id number] 11/25/2023 S220GH / / [id number] -[id number] Syr Pf 2ml Embospheres 100-300 - [id number] Implanted:Qty: 1 on 03/28/2022 at [facility] [employer] [id number] 08/31/2024 S220GH / / [id number] -[id number] Clareon Iol Aspheric Hydrophobic Acrylic Iol Implanted:Qty: 1 on 04/02/2023 by Cody Gonzalez DO at OR [facility] Right: Eye JAZMIN 11/12/2025 CNA0T0 / [id number] / documented as of this encounter Visit Diagnoses Diagnosis Anxiety state Anxiety state, unspecified documented in this encounter Advance Directives Documents on File Type Date Recorded Patient 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 No Full Code 07/22/2014 9:56 PM 07/24/2014 8:18 PM This order reflects the patients wishes and were consensually agreed upon. Question Answer Comments Discussion of Advance Directives occurred with: Patient Does the patient have a Living Will? No Does the patient have Health Care Power of Shiftman? No Care Teams Patrol Guard Relationship Specialty Start Date End Date Francisco Cisse MD [address] [place] [phone] PCP - General Internal Medicine 09/04/21 documented as of this encounter
--- OUTSIDE RECORDS SUMMARY | 2023-11-26 12:38 | External Medical Summary ---
Author Name Unknown Address Unknown Organization K0G:[facility] [place] [address] [place] [address] Laboratory Report Ordering Provider Test Date Status CHELSEY ADAMS 08/30/2023 11:23:49 Final Observation Date Value Abnormality Reference (Units ) Status WBC, Total 08/30/2023 11:23:49 3.15 Below low normal 4. 00-10.80 (K/uL) Final RBC 08/30/2023 11:23:49 2.56 4.50-5.25 (M/uL) Final Hemoglobin 08/30/2023 11:23:49 8.6 Below low normal 14 .0-16.8 (g/dL) Final HCT 08/30/2023 11:23:49 26.5 Below low normal 40. 0-48.4 (%) Final MCV 08/30/2023 11:23:49 103.5 82.0-99.5 (fL) Final MCH 08/30/2023 11:23:49 33.6 27.0-34.0 (pg) Final MCHC 08/30/2023 11:23:49 32.5 32.0-36.0 (g/dL) Final RDW 08/30/2023 11:23:49 16.3 11.5-15.5 (%) Final Platelets 08/30/2023 11:23:49 88 Below low normal 140 -400 (K/uL) Final MPV 08/30/2023 11:23:49 12.6 6.6-11.1 ( fL) Final Performing Location LAB[facility]ATORY [facility] [address] [place] [address]
--- OUTSIDE RECORDS SUMMARY | 2023-11-26 12:38 | External Medical Summary ---
Author Name Unknown Address Unknown Organization K0G:[facility] [place] [address] [place] [address] Laboratory Report Ordering Provider Test Date Status CHELSEY ADAMS 08/30/2023 11:23:49 Final Observation Date Value Abnormality Reference (Units ) Status Nucleated erythrocytes/100 leukocytes [Ratio] in Blood by Automated count 08/30/2023 11:23:49 Final Elliptocytes [Presence] in Blood by Light microscopy 08/30/2023 11:23:49 Moderate Abnormal None Seen Final Dacrocytes [Presence] in Blood by Light microscopy 08/30/2023 11:23:49 Moderate Abnormal None Seen Final Performing Location [facility] [address] [place] [address]
--- OUTSIDE RECORDS SUMMARY | 2023-11-26 12:38 | External Medical Summary ---
Author Name Unknown Address Unknown Organization K0G:[facility] [address] [place] [address] Laboratory Report Ordering Provider Test Date Status CHELSEY ADAMS 08/30/2023 11:23:49 Final Warfarin Therapy
INR: 2 .0-3.0 conventional anticoagulation
INR: 2.5- 3.5 high intensity anticoagulation Observation Date Value Abnormality Reference (Units ) Status PT 08/30/2023 11:23:49 16.1 Above high normal 11 .6-15.2 (seconds) Final INR 08/30/2023 11:23:49 1.3 Above high normal 0. 8-1.2 Final Performing Location [facility] [address] [place] [address]
--- OUTSIDE RECORDS SUMMARY | 2023-11-26 12:38 | External Medical Summary | Summary of Care ---
Author Name Unknown Organization [facility] Address [address] [place] [address] Phone [phone] Care Team Providers Care Manager Installation Name Role Phone Francisco Cisse MD Primary Care Provider + Encounter Details Date Type Department Care Team Description 08/30/2023 Orders Only Trans[facility] Clinic[address] [address] Jocelyne Sykes, RN Hepatocellular carcinoma (HCC)* Allergies No known active allergiesdocumented as of [...] mRNA, LNP-s, No Pre serve, 2-Dose Series ([employer]) 03/08/2021,02/15/2021 HepA Inact/HepB Recomb>=18yrs old 12/04/2019,04/2019,05/20/2019 11/19/2019 PPD 06/18/2017, 3,01/09/2012,06/2011 Pneumococcal Conjugate Vacc, 13 Valent (Prevnar) 05/01/2017 Pneumococcal Polysaccharide PPV23 (Pneumovax) 08/28/2022,10/25/2015,07/14/2012 SEASONAL INFLUENZA, PF, 6 M & Above, IM , (FLULAVAL or FLUZONE) 09/04/2017 Season Influenza, Quad, PF, Adjuvanted, 65+ Yrs, IM (FLUAD) 10/07/2020(Deferred: Patient Refused - pt says he already had his shot last month at [facility] Handy Lyons and Mckinley Cobian made aware) [...] of this encounter Progress Notes * Jocelyne Sykes RN - 08/30/2023 5:37 PM EDT AFP added to labs collected this morning documented in this encounter Plan of Treatment Upcoming Encounters Date Type Specialty Care Team Description 09/06/2023 Office Visit Pharmacy Pharmacist2, [facility] [address] [facility] [place] [address] 09/13/2023 Office Visit Orthopedic Surgery Clayton Vazquez MD [address] [place] [address] 09/26/2023 Imaging Radiology 09/30/2023 Office Visit Hematology Oncology Jennifer Ramires MD [address] [facility] [address] [place] [address] 10/05/2023 Imaging Radiology 10/08/2023 Procedure Only Urology Frank Peraza MD [address] [facility] [address] [place] [address] 10/11/2023 Office Visit Internal Medicine Joaquin Snider PA-C [address] [facility] [place] [address] 12/13/2023 Office Visit Gastroenterology Lamar Tatum CRNP [address] [place] [address] 06/11/2024 Office Visit Ophthalmology Cody Gonzalez DO [address] [facility] [address] [place] [address] Scheduled Orders Name Type Priority Associated Diagnoses Orde r Schedule ALPHA-FETOPROTEIN TUMOR MARKER Lab Routine Hepatocellular carcinoma (HCC) Expected: 08/30/2023, Expires: 08/30/2024 Scheduled Procedures Name Priority Associated Diagnoses Date/Ti [...] Additional history exists CKD PHOS USE SMARTSET 50968 01/28/202401/03, 07/26/2022, 12/05/2021, Additional history exists GFR 02/28/2024 08/30/2023, 07/03, 07/12/2023, Additional history exists Diabetic Foot Exam 03/06/2024 03/06/2023, 0 01/03/2022, 03/02/2021, Additional history exists Albumin/Creatinine Ratio 07/12/2024 023, 10/01/2022, 09/11/2021, Additional history exists COLONOSCOPY-ANNUAL AGES 18-100 08/09/2024 08/09/2023, 11/07/2022, 04/12/2022, Additional history exists CKD HGB USE SMARTSET 17619 08/30/202408/30, 08/30/2023, 08/26/2023, Additional history exists Lipid [...] this encounter Medical Devices Implanted Type Area Calibrator Barometers Device Identifier Shelf Expiration Date Model / Serial / Lot Clareon Iol Aspheric Hydrophobic Acrylic Iol Implanted:Qty: 1 on 04/23/2023 by Cody Gonzalez DO at OR [facility] Lens Left: Eye 11/12/2025 CNA0T0 / [id number] / Viatorr Tips Endoprosthesis 8-10 Mm X 8cm / 2cm Implanted:Qty: 1 on 10/07/2020 by Go Alvarado MD at [facility] Right: Abdomen 03/03/2023 [id number] / / [id number] Description:Viatorr TIPS End oprosthesis 8-10 mm x 8cm / 2cm, Manufactored by [employer] Syr Pf 2ml Embospheres 100-300 - [id number] Implanted:Qty: 1 on 04/18/2021 by Kevin Lmi DO at OR [facility] Left: Abdomen [employer] [id number] 11/25/2023 S220GH / / [id number] -[id number] Syr Pf 2ml Embospheres 100-300 - [id number] Implanted:Qty: 1 on 03/28/2022 at [facility] [email or web address] [id number] 08/31/2024 S220GH / / [id number] -[id number] Clareon Iol Aspheric Hydrophobic Acrylic Iol Implanted:Qty: 1 on 04/02/2023 by Cody Gonzalez DO at OR [facility] Right: Eye JAZMIN 11/12/2025 CNA0T0 / [id number] / documented as of this encounter Visit Diagnoses Diagnosis Hepatocellular carcinoma (HCC)- Primary Malignant neoplasm of liver, primary documented in this encounter Advance Directives Documents on File Type Date Recorded Patient Kitchen Aide Expl anation Advance Directives and Living Will 12/11/2022 ADVANCE DIRECTIVE / LIVING WILL LIVING WILL Power of Medical Administrative Assistant 12/11/2022 POWER OF A TTORNEY Latest [...] the patient have Health Care Power of Medical Administrative Assistant? No Full Code 07/22/2014 9:56 PM 07/24/2014 8:18 PM This order reflects the patients wishes and were consensually agreed upon. Question Answer Comments Discussion of Advance Directives occurred with: Patient Does the patient have a Living Will? No Does the patient have Health Care Power of Medical Administrative Assistant? No Care Teams Manager Installation Relationship Specialty Start Date End Date Francisco Cisse MD [address] [place] [address] [place] [address] PCP - General Internal Medicine 09/04/21 documented as of this encounter
--- OUTSIDE RECORDS SUMMARY | 2023-11-26 12:38 | External Medical Summary | Summary of Care ---
Author Name Unknown Organization [facility] Address [address] [place] [address] Phone [phone] Care Team Providers Care Banking Consultant Name Role Phone Francisco Cisse MD Primary Care Provider + Reason for Referral * Evaluate & Treat - Unlimited Visits (Within 10 days (routine)) - Authorized Specialty Diagnoses / Procedures Referred By Chacho fleming Referred To Contact Electric Tripper Machine Operator Diagnoses Cirrhosis of liver (HCC) Francisco Cisse MD [address] [place] [address] Referral ID Status Reason Start Date Expiration Date Visits Requested Visits Authorized [id number] Authorized Specialty Services Required 08/14/2023 1 1 Question Answer Referral Priority Within 10 days (routine) Program Type Case Management Complex Case Management [facility] Health Device(s) Requested Other (See Comment) Alarm Settings Standard per protocol Comments Primary Electric Tripper Machine Operator: Kriss Maurice Is the patient already enrolled with another [facility] device/service? (If no, will need to "push the button") No Does the patient have a physical address? (If no, provide physical address if requesting device) Yes Requested Devices/IVR: IVR Post-Discharge Start date: 08/22/23 How many weeks: 4 If want time other than 9am, note time here: Reason for Visit * Reason Onset Date Comments case management 08/14/2023 Encounter Details Date Type Department Care Team Description 08/14/2023 Electric Tripper Machine Operator Telephone [facility] [place] [address] [place] [address] Shannan Mondragon, RN [address] [place] [address] case management Allergies No known active allergiesdocumented as of this encounter (statuses as of 08/14/2023) Medications Medication Sig Dispensed Refills Start Date [...] 01/29/2023 Active Mirtazapine 30 MG Oral Tablet (Remeron)Indicatio ns:Neoplastic (malignant) related fatigue,Depression due to physical illness Take 1 Tablet by mouth at bedtime. 90 Tablet 1 02/15/2023 Active Lactulose 10 GM Oral Packet (Kristalose)Indica [...] fracture of twelfth thoracic vertebra, initial encounter ([facility]) Take 1 Tablet by mouth every 6 hours as needed for Pain, Severe. 28 Tablet 0 07/12/2023 Active Furosemide 20 MG Oral Tablet (Lasix)Indications :Cirrhosis of liver with ascites, unspecified hepatic cirrhosis type (HCC) Take 2 Tablets by mouth in the morning. 180 Tablet 3 07/30/2023 Active Allopurinol 100 MG Oral Tablet (Zyloprim)Indicati ons:Gout of big toe Take 2 Tablets by mouth in the morning. 180 Tablet 2 07/30/2023 Active Lantus 100 UNIT/ML Subcutaneous Solution Inject 22 Units under the skin every evening. With dinner 0 07/01/2023 Active oxygen IN GAS Use 2 L/min(Oxygen) as directed at bedtime. 0 Active Repaglinide 1 MG Oral TabletIndications: Type 2 diabetes mellitus with stage 3a chronic kidney disease, without long-term current use of insulin (HCC) Take 1 Tablet by mouth in the morning and 1 Tablet at noon and 1 Tablet in the evening. Take with meals. 15 minutes before each meal. 90 Tablet 5 03/06/2023 3 Discontinue d(Patient preference/ discontinua tion) Baclofen 5 MG Oral Tablet (Lioresal)Indicati ons:Other closed fracture of twelfth thoracic vertebra, initial encounter ([facility]) Take 1 Tablet by mouth in the morning and 1 Tablet in the evening. 30 Tablet 1 07/12/2023 3 Discontinue d(Patient preference/ discontinua tion) Hospital, Clinic, or Other Facility Administered Medication [...] as of this encounter (statuses as of 08/14/2023) Active Problems Problem Noted Date Closed T12 [...] as of this encounter (statuses as of 08/14/2023) Resolved Problems Problem Noted Date Resolved Date [...] as of this encounter (statuses as of 08/14/2023) Immunizations Name Administration Dates Next Due COVID-19 mRNA, LNP-s, No Pre serve, 2-Dose Series (Pfizer) 03/08/2021,02/15/2021 HepA Inact/HepB Recomb>=18yrs old 12/04/2019,04/2019,05/20/2019 11/19/2019 PPD 06/18/2017, 3,01/09/2012,06/2011 Pneumococcal Conjugate Vacc, 13 Valent (Prevnar) 05/01/2017 Pneumococcal Polysaccharide PPV23 (Pneumovax) 08/28/2022,10/25/2015,07/14/2012 Season Influenza, Quad, PF, Adjuvanted, 65+ Yrs, IM (FLUAD) 10/07/2020(Deferred: Patient Refused - pt says he already had his shot last month at [facility] Handy Lyons and Mckinley Cobian made aware) Seasonal Influenza Virus Vac cine, Unspecified Formulation 09/15/2021,09/01/2019,09/04/2017,08/03,09/13/2014,08/10/2013,10/07/20 12,09/03/2011 Seasonal Influenza, PF, 6 mo ns & Above, IM , (Flulaval) 09/04/2017 Seasonal Influenza, Quadriva lent Hd, 65+ Yrs [...] as of this encounter Miscellaneous Notes * ACP (Advance Care Planning) - Shannan Mondragon RN - 08/14/2023 10:32 AM EDT Images from the original note were not included. Patient-centered Communication 08/14/2023 The patient/surrogate voluntarily agreed to participate in advance care planning discussion. Location: Telephonic visit Individual(s) present for conversation: Patient Decisions Additional Comments Discerning What Matters Most to the Patient: Source: Content from Respecting Choices Program Aligning Care With What Matters Most: No data to display Rationale for Decisions Reports Living Will and POA in place, and no change with current hospital stay. Source: Content from [facility]pecting Choices Program 5 minutes spent in direct [id number] discussion today, Shannan Mondragon RN * Telephone Encounter - Shannan Mondragon RN - 08/14/2023 10:04 AM EDT Electric Tripper Machine Operator Progress Note: Date: 08/14/23 Assigned Patient Tier: 2 Connected with patient via Phone. Verified patient name/. Advised patient that call is being recorded for quality and training purposes. Assessment: Pt. noted the following: S: Reports: He still has some back pain - takes tylenol. Plans to get xrays. Is hoping to see pain management in the future. Weight gain: Does not weigh at home. Increased edema: denies Chest pain Denies Increased shortness of breath: With exertion - at his baseline. Wears oxygen at night- 2 lit/min. Chills / Sweats / Fever: denies chills/sweats and denies fever Fall: denies any falls since last Care Management encounter assistive device:walker Appetite: Reports good appetite; lower sodium and diabetic diet denies nausea, vomiting, burning, decreased appetite Bowel: Denies black/bloody stools denies problems Bladder: denies problems Medications: Son fills pill box for patient and takes all medications as prescribed. Chronic Pain: Back pain - takes tylenol BS - Runs 141 mg/dl . Did you receive an alert for an annual wellness visit? No Is this call for a hospital, jail or rehab facility discharge to home? Yes Admitted to [facility] 08/08/23 - 08/12/23 for GI bleed, anemia, cirrhosis Medication Reconciliation: Medication Reconciliation completed: yes Review of Current goals: Discussed the following patient-centered CM goals with the patient during this discussion: -GI: Patient will have GI issues addressed -Status: On Track Taking meds - has follow up with GI -Prevention: Prevent admission/readmission -Status: On Track F/u with CM, GI, PCP. -SAFETY: Prevent falls or injuries -Status: On Track Using walker for ambulation. COPD Patient: No CHF Patient: NO CM Plan: Reviewed 3 Red Flags with patient. Advised to call CM with any of the following: Red Flag 1: Nausea/vomiting, Red Flag 2: dizziness, or Red Flag 3: worsening pain Explained/reinforced role of field nurse case manager. Encouraged to call with any issues or concerns. Gave direct phone number and contact information. Declines PCP follow up apt. Report any rectal bleeding, black, tarry stools, abdominal pain, nausea, vomiting, dizziness, faintness, or syncope. Reviewed diabetic standards of care. Encouraged testing blood sugar at least daily. Instructed to eat a healthy, well-balanced diet. Be cognizant of foods high in sugar and carbohydrates. Take all medications as directed. Report blood sugars consistently less than 80 mg/dl and consistently higher than 300 mg/dl. Reinforced safety measures - use of assistive devices, clear pathways, supportive shoes, well-lit areas. Report any falls or injuries. Advance directives in place. Remote Patient Monitoring: [facility] IVR Plan for Future Contacts: Plan to follow up early next week to check progress on the following goals/needs. Planned contacts from the following parties will occur this week: N/A as additional contacts per workflow. Advancement/Closure Plan: Keep patient at current Tier with reassessment per workflow. Patient provided CM contact information and encouraged to call with any changes in condition. SNP Member? No PCP Notified of enrollment in CM/HM program: Yes Is Provider in agreement with POC? Yes Shannan Mondragon RN Outpatient Case Management documented in this encounter Plan of Treatment Upcoming Encounters Date Type Specialty Care Team Description 08/20/2023 Imaging Radiology 08/30/2023 Office Visit Gastroenterology Lamar Tatum CRNP [address] [place] [address] 09/13/2023 Office Visit [place] [address] [place] [address] [place] [address] 09/30/2023 Office Visit Hematology Oncology Jennifer Ramires MD [address] [facility] [place] [address] 10/08/2023 Procedure Only Urology Frank Peraaz MD [address] [place] [address] 10/11/2023 Office Visit Internal Medicine Joaquin Snider PA-C 200 [facility] [place] [address] 06/11/2024 Office Visit Ophthalmology Cody Gonzalez, [address] [place] [address] Scheduled Procedures Name Priority Associated Diagnoses Date/Ti me COLONOSCOPY FLEXIBLE PROXIMAL DIAGNOSTIC Recall History of colonic polyps Portal hypertensive gastropathy (HCC) ESOPHAGOGASTRODUODENOSCOPY ( EGD), FLEXIBLE, TRANSORAL, DIAGNOSTIC Recall History of colonic polyps Portal hypertensive gastropathy (HCC) Scheduled Referrals Name Type Priority Associated Diagnoses Orde r Schedule REMOTE PATIENT MONITORING REFERRAL Referral Within 10 days (routine) Cirrhosis of liver (HCC) Ordered: 08/14/2023 Health Maintenance Due Date Last Done Comments [...] Additional history exists CKD PHOS USE SMARTSET 88000 01/28/202401/03, 07/26/2022, 12/05/2021, Additional history exists Diabetic Foot Exam 03/06/2024 03/06/2023, 0 01/03/2022, 03/02/2021, Additional history exists Albumin/Creatinine Ratio 07/12/2024 023, 10/01/2022, 09/11/2021, Additional history exists CKD HGB USE SMARTSET 65318 07/24/202407/24, 07/12/2023, 07/12/2023, Additional history exists COLONOSCOPY-ANNUAL AGES 18-100 08/09/2024 08/09/2023, 11/07/2022, 04/12/2022, Additional history exists Lipid Panel 01/28/2028 01/28/2023, [...] this encounter Medical Devices Implanted Type Area Medication Reconciliation Technician Device Identifier Shelf Expiration Date Model / Serial / Lot Clareon Iol Aspheric Hydrophobic Acrylic Iol Implanted:Qty: 1 on 04/23/2023 by Cody Gonzalez DO at OR [facility] Lens Left: Eye 11/12/2025 CNA0T0 / [id number] / Viatorr Tips Endoprosthesis 8-10 Mm X 8cm / 2cm Implanted:Qty: 1 on 10/07/2020 by Go Alvarado MD at [facility] Right: Abdomen 03/03/2023 [id number] / / [id number] Description:Viatorr TIPS End oprosthesis 8-10 mm x 8cm / 2cm, Manufactored by [employer] Syr Pf 2ml Embospheres 100-300 - [id number] Implanted:Qty: 1 on 04/18/2021 by Kevin Lim DO at OR [facility] Left: Abdomen [employer] [id number] 11/25/2023 S220GH / / [id number] -5 Syr Pf 2ml Embospheres 100-300 - [id number] Implanted:Qty: 1 on 03/28/2022 at [facility] [employer] [id number] 08/31/2024 S220GH / / [id number] -5 Clareon Iol Aspheric Hydrophobic Acrylic Iol Implanted:Qty: 1 on 04/02/2023 by Cody Gonzalez DO at OR [facility] Right: Eye JAZMIN 11/12/2025 CNA0T0 / [id number] / documented as of this encounter Visit Diagnoses Diagnosis Cirrhosis of liver (HCC)- Primary Cirrhosis of liver without mention of alcohol Advanced care planning/counseling discussion Other specified counseling documented in this encounter Advance Directives Documents on File Type Date Recorded Patient Senior Pl Sql Developer Expl anation Advance Directives and Living Will 12/11/2022 ADVANCE DIRECTIVE / LIVING WILL LIVING WILL Power of Hourly Manager 12/11/2022 POWER OF A TTORNEY Latest Code [...] the patient have Health Care Power of Hourly Manager? No Full Code 07/22/2014 9:56 PM 07/24/2014 8:18 PM This order reflects the patients wishes and were consensually agreed upon. Question Answer Comments Discussion of Advance Directives occurred with: Patient Does the patient have a Living Will? No Does the patient have Health Care Power of Hourly Manager? No Care Teams Banking Consultant Relationship Specialty Start Date End Date Francisco Cisse MD [address] [place] [address] PCP - General Internal Medicine 09/04/21 documented as of this encounter
--- OUTSIDE RECORDS SUMMARY | 2023-11-26 12:38 | External Medical Summary | Summary of Care ---
Author Name Unknown Organization [facility] Address [address] [facility] [place] [address] Phone [phone] Care Team Providers Care Home Health Aid Name Role Phone Francisco Cisse MD Primary Care Provider + Reason for Visit * Reason Onset Date Comments Medication Refill 09/01/2023 Encounter Details Date Type Department Care Team Description 09/01/2023 Refill General Internal Medicine [facility] [place] [address] [facility] [place] [address] Gege Herbert MD [address] [facility] [place] [address] GAVE (gastric antral vascular ectasia) Allergies No [...] goal of less than 7.0% ([facility]) Use to test blood sugars 3 times a day 300 Strip 5 09/27/2022 Active BD Pen Needle Elizabeth 2nd Gen 32G X 4 MM USE DIRECTED TO ADMINISTER INSULIN AT DINNER DAILY 0 09/25/2022 Active Triamcinolone Acetonide 0.1 % External Cream (Aristocort) Apply to psoriatic lesions twice a day as needed for 2-3 weeks 453.6 g 0 11/21/2022 Active Finasteride 5 MG Oral Tablet (Proscar) [...] the evening. 60 Tablet 5 09/02/2023 Active Pantoprazole Sodium 40 MG Oral Tablet Delayed Release (Protonix)Indicat ions:GAVE (gastric antral vascular ectasia) Take 1 Tablet by mouth in the morning and 1 Tablet in the evening. 60 Tablet 5 01/21/2023 3 Discontinue d(Refill) Hospital, Clinic, or Other [...] mRNA, LNP-s, No Pre serve, 2-Dose Series (ConforMIS) 03/08/2021,02/15/2021 HepA Inact/HepB Recomb>=18yrs old 12/04/2019,04/2019,05/20/2019 11/19/2019 [...] encounter Miscellaneous Notes * Telephone Encounter - Kaykay Gupta RPh - 09/02/2023 1:00 PM EDTSigned Prescriptions: Disp Refills Pantoprazole Sodium 40 MG Oral Tablet Yokasta*60 Tab*5 Sig: Take 1 Tablet by mouth in the morning and 1 Tablet in the evening.Authorizing Provider: Sharon CISSE User: KAYKAY GUPTA documented in this encounter Plan of Treatment Upcoming Encounters Date Type Specialty Care Team Description 09/06/2023 Office Visit Pharmacy Pharmacist2, [facility] [address] [place] [address] 09/13/2023 Office Visit Orthopedic Surgery Clayton Vazquez MD [address] [place] [address] 09/26/2023 Imaging Radiology 09/30/2023 Office Visit Hematology Oncology [facility] [address] 10/05/2023 Imaging Radiology 10/08/2023 Procedure Only Urology Frank Peraza MD [address] [facility] [address] [place] [address] 10/11/2023 Office Visit Internal Medicine Joaquin Snider PAYamila 200 [facility] [place], [place] [address] 12/13/2023 Office Visit Gastroenterology Lamar Tatum CRNP [address] [place] [address] 06/11/2024 Office Visit Ophthalmology Cody Gonzalez, [address] [place] [phone] Scheduled Procedures Name Priority Associated Diagnoses Date/Ti [...] Additional history exists CKD PHOS USE SMARTSET 54712 01/28/202401/03, 07/26/2022, 12/05/2021, Additional history exists GFR 02/28/2024 08/30/2023, 07/03, 07/12/2023, Additional history exists Diabetic Foot Exam 03/06/2024 03/06/2023, 0 01/03/2022, 03/02/2021, Additional history exists Albumin/Creatinine Ratio 07/12/2024 023, 10/01/2022, 09/11/2021, Additional history exists COLONOSCOPY-ANNUAL AGES 18-100 08/09/2024 08/09/2023, 11/07/2022, 04/12/2022, Additional history exists CKD HGB USE SMARTSET 43501 08/30/202408/30, 08/30/2023, 08/26/2023, Additional history exists Lipid [...] this encounter Medical Devices Implanted Type Area Silk Blocker Device Identifier Shelf Expiration Date Model / Serial / Lot Clareon Iol Aspheric Hydrophobic Acrylic Iol Implanted:Qty: 1 on 04/23/2023 by Cody Gonzalez DO at OR [facility] Lens Left: Eye 11/12/2025 CNA0T0 / [id number] / Viatorr Tips Endoprosthesis 8-10 Mm X 8cm / 2cm Implanted:Qty: 1 on 10/07/2020 by Go Alvarado MD at [facility] Right: Abdomen 03/03/2023 [id number] / / [id number] Description:Viatorr TIPS End oprosthesis 8-10 mm x 8cm / 2cm, Manufactored by [employer] Syr Pf 2ml Embospheres 100-300 - [id number] Implanted:Qty: 1 on 04/18/2021 by Kevin Lim DO at OR [facility] Left: Abdomen [employer] [id number] 11/25/2023 S220GH / / [id number] -5 Syr Pf 2ml Embospheres 100-300 - [id number] Implanted:Qty: 1 on 03/28/2022 at [facility] [employer] [id number] 08/31/2024 S220GH / / [id number] -5 Clareon Iol Aspheric Hydrophobic Acrylic Iol Implanted:Qty: 1 on 04/02/2023 by Cody Gonzalez DO at OR [facility] Right: Eye JAZMIN 11/12/2025 CNA0T0 / [id number] / documented as of this encounter Visit Diagnoses Diagnosis GAVE (gastric antral vascular ectasia) Angiodysplasia of stomach and duodenum (without mention of hemorrhage) documented in this encounter Advance Directives Documents on File Type Date Recorded Patient Clinical Lab Technologist Expl anation Advance Directives and Living Will 12/11/2022 ADVANCE DIRECTIVE / LIVING WILL LIVING WILL Power of Chef Passenger Vessel 12/11/2022 POWER OF A TTORNEY Latest Code [...] the patient have Health Care Power of Chef Passenger Vessel? No Full Code 07/22/2014 9:56 PM 07/24/2014 8:18 PM This order reflects the patients wishes and were consensually agreed upon. Question Answer Comments Discussion of Advance Directives occurred with: Patient Does the patient have a Living Will? No Does the patient have Health Care Power of Chef Passenger Vessel? No Care Teams Home Health Aid Relationship Specialty Start Date End Date Francisco Cisse MD 200 [place] [address] PCP - General Internal Medicine 09/04/21 documented as of this encounter
--- OUTSIDE RECORDS SUMMARY | 2023-11-26 12:38 | External Medical Summary ---
Author Name Unknown Address Unknown Organization K01:LABORATORY [facility] - [address] [facility] [address] Laboratory Report Ordering Provider Test Date Status JOLENE PARNELL 08/30/2023 11:23:49 Final Observation Date Value Abnormality Reference (Units ) Status Alpha-Fetoprotein 08/30/2023 11:23:49 <1.8 0. 0-8.3 (ng/mL) Final Performing Location [facility]ORY [facility] - [address] [facility] [address]
--- OUTSIDE RECORDS SUMMARY | 2023-11-26 12:38 | External Medical Summary | Summary of Care ---
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) HCC (hepatocellular carcinoma) (HCC) Procedures MRI LIVER W WO CONTRAST Lamar Tatum CRNP [address] [place] [address] Referral ID Status Reason Start Date Expiration Date V isits Requested Visits Authorized [id number] Authorized 09/06/2023 999 999 Reason for Visit * Reason Comments Follow Up Cirrhosis Encounter Details Date Type Department Care Team Description 08/30/2023 Office Visit Gastroenterology, [facility] [address] [place] [address] Lamar Tatum CRNP [address] [place] [address] 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)*; HCC (hepatocellular carcinoma) (HCC) Allergies No known [...] of twelfth thoracic vertebra, initial encounter ([facility]) Take 1 Tablet by mouth [...] mRNA, LNP-s, No Pre serve, 2-Dose Series ([employer]) 03/08/2021,02/15/2021 HepA Inact/HepB Recomb>=18yrs old 12/04/2019,04/2019,05/20/2019 11/19/2019 PPD 06/18/2017, 3,01/09/2012,0306/2011 Pneumococcal Conjugate Vacc, 13 Valent (Prevnar) 05/01/2017 Pneumococcal Polysaccharide PPV23 (Pneumovax) 08/28/2022,10/25/2015,07/14/2012 SEASONAL INFLUENZA, PF, 6 M & Above, IM , (FLULAVAL or FLUZONE) 09/04/2017 Season Influenza, Quad, PF, Adjuvanted, 65+ Yrs, IM (FLUAD) 10/07/2020(Deferred: Patient Refused - pt says he already had his shot last month at [facility] and [facility] [...] (15 years old or older) No 10/07/20 Cognitive Status Response Date of Assessm ent Because of a physical, menta l, or emotional condition, do you have serious difficulty concentrating, remembering, or making decisions? (5 years old or older No 10/07/2020 documented as of this encounter Progress Notes * JEFF Mccabe - 08/30/2023 5:21 AM EDT CC: f/u FOFANA cirrhosis with ascites post TIPs, prior HE, EV, HCC HPI: Recall that Mr. Luis Hale is a 73 yr old male pt of Dr. Hill with a hx of DM-2, FOFANA cirrhosis, obesity and psoriasis who presents today for recheck NAFLD cirrhosis. He transferred here from [facility] hepatology in July 2020. TIPs was completed on 10/07/20. Revision Jan 2021. Hx of TACE for HCC. On the liver transplant list,followed by [facility]. Followed by Hem/onc anemia clinic. Interim Hx: Hospitalized at [facility] for hep enceph and for hematochezia this [...] surgeon but I had intervened as well linden FRANCES and he was evaled at [facility] were he was told he was not [...] Male at 05/28/2023 12:14 PM Labs at [facility] since May MELD 15 - 17. Decompensations: EV: iradicated. Most recent EGD 08/09/23: portal hypertensive gastropathy, no varices Radiation Proctitis: Flex sig 02/01/22 and 04/12/22: APC'ed. No mention on Aug 2023 colonoscopy. Hepatic Encephalopathy: most recently July 2023 currently on Lactulose 15ml BID and Rifaximin. Ascites: Furosemide 40mg daily - Post TIPs and revision - Most recent paracentesis at [facility] 08/28/23 4.5L removed. Hx HCC: Liver MRI [...] Team Description 09/06/2023 Office Visit Pharmacy Pharmacist2, [facility] [address] [facility] [place] [address] 09/13/2023 Office Visit Orthopedic Surgery Clayton Vazquez MD [address] [place] [address] [place] [address] 09/26/2023 Imaging Radiology 09/30/2023 Office Visit Hematology Oncology Jennifer Ramires MD [address] [place] [address] 10/05/2023 Imaging Radiology 10/08/2023 Procedure Only Urology Frank Peraza MD [address] [place] [address] 10/11/2023 Office Visit Internal Medicine Joaquin Snider PA-C [address] [place] [address] 12/13/2023 Office Visit Gastroenterology Lamar Tatum CRNP [address] [place] [address] 06/11/2024 Office Visit Ophthalmology Cody Gonzalez DO [address] [place] [id number] Pending Results Name Type Priority Associated Diagnoses Date /Time COMPREHENSIVE METABOLIC PANEL Lab Routine 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) HCC (hepatocellular carcinoma) (HCC) 08/30/2023 11:23 AM EDT Scheduled Orders Name Type Priority Associated Diagnoses [...] Additional history exists CKD PHOS USE SMARTSET 30214 01/28/202401/03, 07/26/2022, 12/05/2021, Additional history exists Diabetic Foot Exam 03/06/2024 03/06/2023, 0 01/03/2022, 03/02/2021, Additional history exists Albumin/Creatinine Ratio 07/12/2024 023, 10/01/2022, 09/11/2021, Additional history exists COLONOSCOPY-ANNUAL AGES 18-100 08/09/2024 08/09/2023, 11/07/2022, 04/12/2022, Additional history exists CKD HGB USE SMARTSET 31758 08/26/202408/26, 07/24/2023, 07/12/2023, Additional history exists Lipid [...] this encounter Medical Devices Implanted Type Area Glass Artist Device Identifier Shelf Expiration Date Model / Serial / Lot Clareon Iol Aspheric Hydrophobic Acrylic Iol Implanted:Qty: 1 on 04/23/2023 by Cody Gonzalez DO at OR [facility] Lens Left: Eye 11/12/2025 CNA0T0 / [id number] / Viatorr Tips Endoprosthesis 8-10 Mm X 8cm / 2cm Implanted:Qty: 1 on 10/07/2020 by Go Alvarado MD at [facility] Right: Abdomen 03/03/2023 [id number] / / [id number] Description:Viatorr TIPS End oprosthesis 8-10 mm x 8cm / 2cm, Manufactored by [employer] Syr Pf 2ml Embospheres 100-300 - [id number] Implanted:Qty: 1 on 04/18/2021 by Kevin Lim DO at OR [facility] Left: Abdomen [employer] [id number] 11/25/2023 S220GH / / [id number] Syr Pf 2ml Embospheres 100-300 - [id number] Implanted:Qty: 1 on 03/28/2022 at [facility] [employer] [id number] 08/31/2024 S220GH / / [id number] -[id number] Clareon Iol Aspheric Hydrophobic Acrylic Iol Implanted:Qty: 1 on 04/02/2023 by Cody Gonzalez DO at OR [facility] Right: Eye JAZMIN 11/12/2025 CNA0T0 / [id number] / documented as of this encounter Visit Diagnoses Diagnosis 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 No Full Code 07/22/2014 9:56 PM 07/24/2014 8:18 PM This order reflects the patients wishes and were consensually agreed upon. Question Answer Comments Discussion of Advance Directives occurred with: Patient Does the patient have a Living Will? No Does the patient have Health Care Power of Warp Clamper? No Care Teams Chemic Mangler Relationship Specialty Start Date End Date Francisco Cisse MD [address] [place] [id number] PCP - General Internal Medicine 09/04/21 documented as of this encounter
--- OUTSIDE RECORDS SUMMARY | 2023-11-26 12:38 | External Medical Summary ---
Author Name Unknown Address Unknown Organization K[facility] [address] [place] [address] Laboratory Report Ordering Provider Test Date Status CHELSEY ADAMS 08/30/2023 11:23:49 Final Observation Date Value Abnormality Reference (Units ) Status SYNC LEUKOCYTES IN BLOOD BY AUTOMATED COUNT 08/30/2023 11:23:49 3.15 Below low normal 4.00-10.80 (K/uL) Final Segs 08/30/2023 11:23:49 59.5 40.0-75.0 (%) Final Lymphs % 08/30/2023 11:23:49 23.7 18.0-42.0 (%) Final Monos 08/30/2023 11:23:49 8.4 1.0-11.0 (%) Final Eosinophils 08/30/2023 11:23:49 8.1 Above high normal 0.0-6.0 (%) Final Basos 08/30/2023 11:23:49 0.3 0.0-2.0 (%) Final Absolute Segs 08/30/2023 11:23:49 1.83 1.80-7.70 (K/uL) Final Lymphs, absolute 08/30/2023 11:23:49 0.73 Below low normal 1.00-4.80 (K/ul) Final Monos, Abs 08/30/2023 11:23:49 0.26 0.00-1.10 (K/uL) Final Eos, Abs 08/30/2023 11:23:49 0.25 0.00-0.70 (K/uL) Final Basos, Abs 08/30/2023 11:23:49 0.01 0.00-0.20 (K/uL) Final Performing Location [facility] [address] [place] [address]
--- OUTSIDE RECORDS SUMMARY | 2023-11-26 12:38 | External Medical Summary | Summary of Care ---
Author Name Unknown Organization [facility] Address [address] [place] [address] Phone [phone] Care Team Providers Care Promotions Assistant Name Role Phone Francisco Cisse MD Primary Care Provider + Reason for Referral * Evaluate & Treat - Unlimited Visits (Within 30 days (routine)) - Authorized Specialty Diagnoses / Procedures Referred By Chacho fleming Referred To Contact HOME CARE / Home Care Diagnoses Gastrointestinal hemorrhage, unspecified gastrointestinal hemorrhage type Francisco Cisse MD [address] [facility] [place] [address] Referral ID Status Reason Start Date Expiration Date Visits Requested Visits Authorized [id number] Authorized Specialty Services Required 08/14/2023 999 999 Question Answer Referral Priority Within 30 days (routine) Comments Documentation of Inox-kh-Etdg Encounter Addendum Patient Name: Luis Hale I certify that this patient is under my care and that I, or a nurse practitioner or physician's assistant vice president working with me, had a dorp-xo-hihe encounter that meets the physician mxtg-zb-aukz encounter requirements with this patient on: 07/12/23 The encounter with the patient was in whole, or in part, for the following medical condition, which is the primary reason for home health care (List medical condition): Convalescence from acute illness I certify that, based on my findings, the following services are medically necessary home health services: Nursing, Physical Therapy, and OT To provide the following care/treatments: (All hospitalists not following the patient after discharge should complete this section): [place] Primary Care Physician to follow home care plan of care after discharge: Tanna My clinical findings support the need for the above services because: patient with multiple co-morbidities with diabetes, liver failure Further, I certify that my clinical findings support that this patient is homebound (i.e. Absences from home require considerable and taxing effort and are for medical reasons or taoism services or infrequently or of short duration when for other reason) because: Patient can't drive has chronic lower back pain from fx, diabetes and any walking very taxing Physician Signature: Date of Signature: Physician Printed Name: Francisco Cisse MD Reason for Visit * Reason Onset Date Comments Home Health 08/13/2023 Hospital Follow-Up 08/13/2023 Encounter Details Date Type Department Care Team Description 08/13/2023 Telephone General Internal Medicine [facility] [place] [address] [facility] [address] [address] [facility] [address] [facility] [address] [facility]; Hospital Follow-Up Allergies No known active allergiesdocumented as of this encounter (statuses as of 08/15/2023) Medications Medication Sig Dispensed Refills Start Date [...] of twelfth thoracic vertebra, initial encounter ([facility]) Take 1 Tablet by mouth every 6 [...] of twelfth thoracic vertebra, initial encounter ([facility]) Take 1 Tablet by mouth in the [...] as of this encounter (statuses as of 08/15/2023) Active Problems Problem Noted Date Closed T12 [...] as of this encounter (statuses as of 08/15/2023) Resolved Problems Problem Noted Date Resolved Date [...] 02/09/2019 04/13/2021 Overview: Per CKD protocol #1 FOFNAA (nonalcoholic steatohepatitis) 09/03/2018 01/18/2023 NAFLD (nonalcoholic fatty [...] as of this encounter (statuses as of 08/15/2023) Immunizations Name Administration Dates Next Due COVID-19 mRNA, LNP-s, No Pre serve, 2-Dose Series ([employer]) 03/08/2021,02/15/2021 HepA Inact/HepB Recomb>=18yrs old 12/04/2019,04/2019,05/20/2019 11/19/2019 PPD 06/18/2017, 3,01/09/2012,06/2011 Pneumococcal Conjugate Vacc, 13 Valent (Prevnar) 05/01/2017 Pneumococcal Polysaccharide PPV23 (Pneumovax) 08/28/2022,10/25/2015,07/14/2012 Season Influenza, Quad, PF, Adjuvanted, 65+ Yrs, IM (FLUAD) 10/07/2020(Deferred: Patient Refused - pt says he already [facility]) Seasonal Influenza [...] Telephone Encounter - Corina Prado LPN - 08/15/2023 8:06 AM EDT Home health order faxed. Confirmation received. * Telephone Encounter - Francisco Cisse MD - 08/14/2023 6:44 PM EDT Noted Please fax home health * Telephone Encounter - ESTELLE Brooks - 08/14/2023 4:01 PM EDT Called pt, declined to schedule appt. Said "They didn't find anything and the bleeding has stopped on it's own". Also said transportation is an issue with his broken back. 08/14 JAT * Telephone Encounter - Francisco Cisse MD - 08/14/2023 3:28 PM EDT No, but visit needs to be scheduled for face to face order, so please schedule, thanks * Telephone Encounter - ESTELLE Brooks - 08/14/2023 11:26 AM EDT Do we need hosp f/u before PT,OT and shelter referrals are put in? All I see is "remote pt monitoring" * Telephone Encounter - Francisco Cisse MD - 08/13/2023 11:13 AM EDT Ok, to all, please schedule hospital f/u! * Telephone Encounter - Sherlyn Lees LPN - 08/13/2023 11:07 AM EDT Cristina from [employer] calling. pt was discharge from [facility] yesterday 08/12 due to GI bleed, she needs order to restart PT and OT, thsi would be order for resumption of care. He didn't have shelter previously if feels he should have nursing this will also need ordered. [employer] Please advise. documented in this encounter Plan of Treatment Upcoming Encounters Date Type Specialty Care Team Description 08/20/2023 Imaging Radiology 08/30/2023 Office Visit Gastroenterology Lamar Tatum CRNP [address] [facility] [place] [place] [address] 09/13/2023 Office Visit Orthopedic Surgery Clayton Vazquez MD [address] [place] [address] 09/30/2023 Imaging Radiology 09/30/2023 Office Visit Hematology Oncology Jennifer Ramires MD [address] [place] [address] 10/08/2023 Procedure Only Urology Frank Peraza MD [address] [place] [address] [place] [address] 10/11/2023 Office Visit Internal Medicine Joaquin Snider PA-C [address] [facility] [place] [address] 06/11/2024 Office Visit Ophthalmology Cody Gonzalez, [address] [place] [address] Scheduled Procedures Name Priority Associated Diagnoses Date/Ti me COLONOSCOPY FLEXIBLE PROXIMAL DIAGNOSTIC Recall History of colonic polyps Portal hypertensive gastropathy (HCC) ESOPHAGOGASTRODUODENOSCOPY ( EGD), FLEXIBLE, TRANSORAL, DIAGNOSTIC Recall History of colonic polyps Portal hypertensive gastropathy (HCC) Scheduled Referrals Name Type Priority Associated Diagnoses Orde r Schedule HOME HEALTH REFERRAL OP Referral Within 30 days (routine) Gastrointestinal hemorrhage, unspecified gastrointestinal hemorrhage type Ordered: 08/14/2023 Health Maintenance Due Date Last [...] Additional history exists CKD PHOS USE SMARTSET 17948 01/28/202401/03, 07/26/2022, 12/05/2021, Additional history exists Diabetic Foot Exam 03/06/2024 03/06/2023, 0 01/03/2022, 03/02/2021, Additional history exists Albumin/Creatinine Ratio 07/12/2024 023, 10/01/2022, 09/11/2021, Additional history exists CKD HGB USE SMARTSET 96799 07/24/202407/24, 07/12/2023, 07/12/2023, Additional history exists COLONOSCOPY-ANNUAL [...] this encounter Medical Devices Implanted Type Area Crm Business Analyst Device Identifier Shelf Expiration Date Model / Serial / Lot Clareon Iol Aspheric Hydrophobic Acrylic Iol Implanted:Qty: 1 on 04/23/2023 by Cody Gonzalez DO at OR [facility] Lens Left: Eye 11/12/2025 CNA0T0 / [id number] / Viatorr Tips Endoprosthesis 8-10 Mm X 8cm / 2cm Implanted:Qty: 1 on 10/07/2020 by Go Alvarado MD at [facility] Right: Abdomen 03/03/2023 [id number] / / [id number] Description:Viatorr TIPS End oprosthesis 8-10 mm x 8cm / 2cm, Manufactored by [employer] Syr Pf 2ml Embospheres 100-300 - [id number] Implanted:Qty: 1 on 04/18/2021 by Kevin Lim DO at OR [facility] Left: Abdomen [employer] [id number] 11/25/2023 S220GH / / [id number] Syr Pf 2ml Embospheres 100-300 - [id number] Implanted:Qty: 1 on 03/28/2022 at [facility] [employer] [id number] 08/31/2024 S220GH / / [id number] -5 Clareon Iol Aspheric Hydrophobic Acrylic Iol Implanted:Qty: 1 on 04/02/2023 by Cody Gonzalez DO at OR [facility] Right: Eye JAZMIN 11/12/2025 CNA0T0 / [id number] / documented as of this encounter Visit Diagnoses Diagnosis Gastrointestinal hemorrhage, unspecified gastrointestinal hemorrhage type- Primary documented in this encounter Advance Directives Documents on File Type Date Recorded Patient Engagement Mgr Expl anation Advance Directives and Living Will 12/11/2022 ADVANCE DIRECTIVE / LIVING WILL LIVING WILL Power of Foundation Assistant 12/11/2022 POWER OF A TTORNEY Latest [...] the patient have Health Care Power of Foundation Assistant? No Full Code 07/22/2014 9:56 PM 07/24/2014 8:18 PM This order reflects the patients wishes and were consensually agreed upon. Question Answer Comments Discussion of Advance Directives occurred with: Patient Does the patient have a Living Will? No Does the patient have Health Care Power of Foundation Assistant? No Care Teams Promotions Assistant Relationship Specialty Start Date End Date Francisco Cisse MD [address] [place] [address], [place] [address] PCP - General Internal Medicine 09/04/21 documented as of this encounter
--- OUTSIDE RECORDS SUMMARY | 2023-11-26 12:39 | External Medical Summary | Summary of Care ---
Author Name Unknown Organization [facility] Address [address] [facility] [place] [address] Phone [phone] Care Team Providers Care Bicycle Mechanic Name Role Phone Francisco Cisse MD Primary Care Provider + Encounter Details Date Type Department Care Team Description 08/09/2023 Orders Only Gastroenterology, [facility] [address] [place] [address] Edis Price DO [address] [place] [address] Allergies No known active allergiesdocumented as of this encounter (statuses as of 08/09/2023) Medications Medication Sig Dispensed Refills Start Date End Date Status Tylenol 325 MG Oral Capsule (Acetaminophen) Take 650 mg by mouth every 8 hours as needed for Pain (fever). 0 Active OneTouch Verio In Vitro Strip (Glucose Blood)Indications:T ype 2 diabetes mellitus with hemoglobin A1c goal of less than 7.0% ([facility]) Use to test blood sugars [...] at bedtime. 90 Tablet 1 02/15/2023 Active Repaglinide 1 MG Oral TabletIndications:T ype 2 diabetes mellitus with stage 3a chronic kidney disease, without long-term current use of insulin (HCC) Take 1 Tablet by mouth in the morning and 1 Tablet at noon and 1 Tablet in the evening. Take with meals. 15 minutes before each meal. 90 Tablet 5 03/06/2023 Active Additional Information Patient not taking.Reported on 07/12/2023 Lactulose 10 GM Oral Packet (Kristalose)Indicat ions:Cirrhosis [...] Oral Capsule 1 Capsule. 0 05/17/2023 Active Baclofen 5 MG Oral Tablet (Lioresal)Indicatio ns:Other closed fracture of twelfth thoracic vertebra, initial encounter ([facility]) Take 1 Tablet by mouth in the morning and 1 Tablet in the evening. 30 Tablet 1 07/12/2023 Active oxyCODONE HCl 5 MG Oral Tablet [...] as of this encounter (statuses as of 08/09/2023) Active Problems Problem Noted Date Closed T12 [...] as of this encounter (statuses as of 08/09/2023) Resolved Problems Problem Noted Date Resolved Date [...] as of this encounter (statuses as of 08/09/2023) Immunizations Name Administration Dates Next Due COVID-19 mRNA, LNP-s, No Pre serve, 2-Dose Series (LAFASO) 03/08/2021,02/15/2021 HepA Inact/HepB Recomb>=18yrs old 12/04/2019,04/2019,05/20/2019 11/19/2019 PPD 06/18/2017, 3,01/09/2012,0306/2011 Pneumococcal Conjugate Vacc, 13 Valent (Prevnar) 05/01/2017 Pneumococcal Polysaccharide PPV23 (Pneumovax) 08/28/2022,10/25/2015,07/14/2012 Season Influenza, Quad, PF, Adjuvanted, 65+ Yrs, IM (FLUAD) 10/07/2020(Deferred: Patient Refused - pt says he already had his shot last month at [facility] [employer] [facility] [...] Encounters Date Type Specialty Care Team Description 08/30/2023 Office Visit Gastroenterology Lamar Tatum CRNP [address] [place] [address] 09/13/2023 Office Visit Orthopedic Surgery Clayton Vazquez MD [address] [place] [address] 09/30/2023 Office Visit Hematology Oncology Jennifer Ramires MD [address] [place] [address] 10/08/2023 Procedure Only Urology Frank Peraza MD [address] [facility] [address] [facility] [place] [address] 10/11/2023 Office Visit Internal Medicine Joaquin Snider PA-C [address] [place] [address] 06/11/2024 Office Visit Ophthalmology Cody Gonzalez DO [address] [place] [address] Health Maintenance Due Date Last Done Comments Zoster Vaccines (1 of 2) 2000 COVID-19 Vaccine (3 - Pfizer risk series) 04/05/2021 03/08/2021, 02/15/2021 Depression Screening 05/03/2022 05/03/2021 Influenza Vaccine (FLU shot) (#1) 2023 09/15/2021, 09/15/2021, 09/30/2020, Additional history exists HbA1c 11/27/2023 05/28/2023, 01/03, 10/10/2022, Additional history exists DIABETES-EYE EXAM 01/17/2024 01/17/2023, , 01/17/2023, Additional history exists GFR 01/24/2024 07/24/2023, 0812/2022, 06/29/2023, Additional history exists CKD PHOS USE SMARTSET 41090 01/28/202401/03, 07/26/2022, 12/05/2021, Additional history exists Diabetic Foot Exam 03/06/2024 03/06/2023, 0 01/03/2022, 03/02/2021, Additional history exists Albumin/Creatinine Ratio 07/12/2024 023, 10/01/2022, 09/11/2021, Additional history exists CKD HGB USE SMARTSET 27212 07/24/202407/24, 07/12/2023, 07/12/2023, Additional history exists COLONOSCOPY-EVERY 3 YRS AGES 18-100 08/09/2026 08/09/2023, 11/07/2022, 04/12/2022, Additional history exists Lipid Panel 01/28/2028 01/28/2023, 11/02, 08/15/2020, Additional history exists DTaP,Tdap,and Td Vaccines (3 - Td or Tdap) 09/28/2032 09/28/2022, 02/12/2011, 12/19/1999 Pneumococcal Vaccine: 65+ Years Completed 08/28/2022, 05/01/2017, 10/25/2015, Additional history exists COLONOSCOPY-EVERY 5 YRS AGES 18-100 Discontinued 08/09/2023, 11/07/2022, 04/12/2022, Additional history exists GARDASIL-HPV IMMUNIZATION SERIES Aged Out No longer eligible based on patient's age to complete this topic MENINGOCOCCAL (MENACTRA/MENVEO) Aged Out No longer eligible based on patient's age to complete this topic documented as of this encounter Medical Devices Implanted Type Area Vp Production Device Identifier Shelf Expiration Date Model / Serial / Lot Clareon Iol Aspheric Hydrophobic Acrylic Iol Implanted:Qty: 1 on 04/23/2023 by Cody Gonzalez DO at OR [facility] Left: Eye 11/12/2025 CNA0T0 / [id number] / Viatorr Tips Endoprosthesis 8-10 Mm X 8cm / 2cm Implanted:Qty: 1 on 10/07/2020 by Go Alvarado MD at [facility] Right: Abdomen 03/03/2023 [id number] / / [id number] Description:Viatorr TIPS End oprosthesis 8-10 mm x 8cm / 2cm, Manufactored by [employer] Syr Pf 2ml Embospheres 100-300 - [id number] Implanted:Qty: 1 on 04/18/2021 by Kevin Lim DO at OR [facility] Left: Abdomen [employer] [id number] 11/25/2023 S220GH / / [id number] Syr Pf 2ml Embospheres 100-300 - [id number] Implanted:Qty: 1 on 03/28/2022 at [facility] [employer] [id number] 08/31/2024 S220GH / / [id number] -[id number] Clareon Iol Aspheric Hydrophobic Acrylic Iol Implanted:Qty: 1 on 04/02/2023 by Cody Gonzalez DO at OR [facility] Right: Eye JAZMIN 11/12/2025 CNA0T0 / [id number] / documented as of this encounter Procedures Procedure Name Priority Date/Time Associated Diagnosis Comments UPPER GI ENDOSCOPY 08/09/2023 COLONOSCOPY 08/09/2023 documented in this encounter Results * COLONOSCOPY (08/09/2023) 08/09/2023 Edis Price DO GASTRO LOWER * UPPER GI ENDOSCOPY (08/09/2023) 08/09/2023 Edis Price DO GASTRO UPPER documented in this encounter Advance Directives Documents on File Type Date Recorded Patient Collection Systems Foreman Expl anation Advance Directives and Living Will 12/11/2022 ADVANCE DIRECTIVE / LIVING WILL LIVING WILL Power of Back Tender Paper Machine 12/11/2022 POWER OF A TTORNEY Latest Code [...] the patient have Health Care Power of Back Tender Paper Machine? No Full Code 07/22/2014 9:56 PM 07/24/2014 8:18 PM This order reflects the patients wishes and were consensually agreed upon. Question Answer Comments Discussion of Advance Directives occurred with: Patient Does the patient have a Living Will? No Does the patient have Health Care Power of Back Tender Paper Machine? No Care Teams Bicycle Mechanic Relationship Specialty Start Date End Date Francisco Cisse MD [address] [place] [address] PCP - General Internal Medicine 09/04/21 documented as of this encounter
--- OUTSIDE RECORDS SUMMARY | 2023-11-26 12:39 | External Medical Summary | Summary of Care ---
Author Name Unknown Organization [facility] Address [address] [facility] [address] Phone [phone] Care Team Providers Care Icing And Glaze Maker Name Role Phone Francisco Cisse MD Primary Care Provider + Reason for Visit * Reason Onset Date Comments Referral 08/12/2023 Encounter Details Date Type Department Care Team Description 08/12/2023 Telephone Pharmacy Call Center [address] [place] [address] Pharmacist2, [facility] [address] [facility] [id number] Referral Allergies No known active allergiesdocumented as of this encounter (statuses as of 08/12/2023) Medications Medication Sig Dispensed Refills Start Date End Date Status Tylenol 325 MG Oral Capsule (Acetaminophen) Take 650 mg by mouth every 8 hours as needed for Pain (fever). 0 Active OneTouch Verio In Vitro Strip (Glucose Blood)Indications:T ype 2 diabetes mellitus with hemoglobin A1c goal of less than 7.0% ([facility]) Use to test blood sugars [...] encounter (HCC) Take 1 Tablet by mouth in [...] as of this encounter (statuses as of 08/12/2023) Active Problems Problem Noted Date Closed T12 [...] as of this encounter (statuses as of 08/12/2023) Resolved Problems Problem Noted Date Resolved Date [...] as of this encounter (statuses as of 08/12/2023) Immunizations Name Administration Dates Next Due COVID-19 mRNA, LNP-s, No Pre serve, 2-Dose Series ([email or web address]) 03/08/2021,02/15/2021 HepA Inact/HepB Recomb>=18yrs old 12/04/2019,04/2019,05/20/2019 11/19/2019 PPD 06/18/2017, 3,01/09/2012,0306/2011 Pneumococcal Conjugate Vacc, 13 Valent (Prevnar) 05/01/2017 Pneumococcal Polysaccharide PPV23 (Pneumovax) 08/28/2022,10/25/2015,07/14/2012 Season Influenza, Quad, PF, Adjuvanted, 65+ Yrs, IM (FLUAD) 10/07/2020(Deferred: Patient Refused - pt says he already had his shot last month at [facility] [...] * Telephone Encounter - Jose Ramon Payne [facility] - 08/12/2023 1:50 PM EDT Referral received and reviewed. Reason for referral: Pain Please Schedule patient. Referring provider: Francisco Cisse MD Initial appt length: 60 min Appointment type indicated: Inperson Required [facility] Jose Ramon Payne [facility] 08/12/2023, 1:51 PM * Telephone Encounter - RICO Hernandez Tech - 08/12/2023 1:43 PM EDT Comments Pharmacist Medication Therapy Management: Minimum frequency patient should be seen in person for medication management: as appropriate per clinical condition and patient status By my signature, I understand that my patient Luis Hale will have his medication therapy managedby the [facility] Medication Therapy Disease Management Clinic ([facility]) per established policies, procedures, and protocols. I also certify that this referral may serve as an initiation of service for the management of drug therapy in the above noted patient. [facility] providers will be responsible for scheduling patient visits, obtaining appropriate laboratory studies, and adjusting medication management therapy per patient's need, in addition to those roles spelled out in the clinic policy, procedures, and drug management protocols. I understand that the service provided by the [facility] Clinic is voluntary and have informed patient that they can refuse the service at their discretion. I am aware that the [facility] will provide me with a copy of the patient encounter via my [employer]. I authorize the [facility] Clinic to carry out these activities on my behalf. I consider this program to be a necessary part of the patient's medical care. Francisco Cisse MD Order Specific Questions Referral Priority Within 3 days (urgent) Department: Primary Care Reason for Referral: Pain. r/t Potentially stable Chance fracture with delayed healing-Not a surgical candidate Pain Diagnosis: Back pain Other Further Details of Diagnosis: Potentially stable Chance fracture with delayed healing-Not a surgical candidate. Pain Treatment Options: Opioids and/or Non-opioids Does patient have a signed KAI? This is required for patients on opioids No Has patient completed a Urine Drug Screen in the past 3 months? This is required for patients on opioids No Pain Treatment Goal: Med Optimization documented in this encounter Plan of Treatment Upcoming Encounters Date Type Specialty Care Team Description 08/16/2023 Office Visit Internal Medicine Gege Herbert MD [address] [facility] [place] [address] 08/30/2023 Office Visit Gastroenterology Lamar Tatum CRNP [address] [facility] [place] [address] 09/13/2023 Office Visit Orthopedic Surgery Clayton Vazquez MD [address] [place] [address] 09/30/2023 Office Visit Hematology Oncology Jennifer Ramires MD [address] [facility] [address] 10/08/2023 Procedure Only Urology Frank Peraza MD [address] [facility] [address] [place] [address] 10/11/2023 Office Visit Internal Medicine Joaquin Snider PA-C [address] [facility] [place] [place] [address] 06/11/2024 Office Visit Ophthalmology Cody Gonzalez DO [address] [place] [address] Health Maintenance Due Date Last Done [...] Additional history exists CKD PHOS USE SMARTSET 51422 01/28/202401/03, 07/26/2022, 12/05/2021, Additional history exists Diabetic Foot Exam 03/06/2024 03/06/2023, 0 01/03/2022, 03/02/2021, Additional history exists Albumin/Creatinine Ratio 07/12/2024 023, 10/01/2022, 09/11/2021, Additional history exists CKD HGB USE SMARTSET 97941 07/24/202407/24, 07/12/2023, 07/12/2023, Additional history exists COLONOSCOPY-EVERY [...] this encounter Medical Devices Implanted Type Area Economic Development Coordinator Device Identifier Shelf Expiration Date Model / Serial / Lot Clareon Iol Aspheric Hydrophobic Acrylic Iol Implanted:Qty: 1 on 04/23/2023 by Cody Gonzalez DO at OR [facility] Lens Left: Eye 11/12/2025 CNA0T0 / [id number] / Viatorr Tips Endoprosthesis 8-10 Mm X 8cm / 2cm Implanted:Qty: 1 on 10/07/2020 by Go Alvarado MD at [facility] Right: Abdomen 03/03/2023 [id number] / / [id number] Description:Viatorr TIPS End oprosthesis 8-10 mm x 8cm / 2cm, Manufactored by [employer] Syr Pf 2ml Embospheres 100-300 - [id number] Implanted:Qty: 1 on 04/18/2021 by Kevin Lim DO at OR [facility] Left: Abdomen [employer] [id number] 11/25/2023 S220GH / / [id number] -[id number] Syr Pf 2ml Embospheres 100-300 - [id number] Implanted:Qty: 1 on 03/28/2022 at [facility] [employer] [id number] 08/31/2024 S220GH / / [id number] -5 Clareon Iol Aspheric Hydrophobic Acrylic Iol Implanted:Qty: 1 on 04/02/2023 by Cody Gonzalez DO at OR [facility] Right: Eye JAZMIN 11/12/2025 CNA0T0 / [id number] / documented as of this encounter Advance Directives Documents on File Type Date Recorded Patient Pit Manager Expl anation Advance Directives and Living Will 12/11/2022 ADVANCE DIRECTIVE / LIVING WILL LIVING WILL Power of Toe Stripper 12/11/2022 POWER OF A TTORNEY Latest Code [...] the patient have Health Care Power of Toe Stripper? No Full Code 07/22/2014 9:56 PM 07/24/2014 8:18 PM This order reflects the patients wishes and were consensually agreed upon. Question Answer Comments Discussion of Advance Directives occurred with: Patient Does the patient have a Living Will? No Does the patient have Health Care Power of Toe Stripper? No Care Teams Icing And Glaze Maker Relationship Specialty Start Date End Date Francisco Cisse MD [address] [place] [address] PCP - General Internal Medicine 09/04/21 documented as of this encounter
--- OUTSIDE RECORDS SUMMARY | 2023-11-26 12:39 | External Medical Summary | Summary of Care ---
Author Name Unknown Organization [facility] Address [address] [place] [address] Phone [phone] Care Team Providers Care Wireworker Supervisor Name Role Phone Francisco Cisse MD Primary Care Provider + Reason for Visit * Reason Onset Date Comments case management 08/08/2023 Encounter Details Date Type Department Care Team Description 08/08/2023 Taxi Truck Driver Telephone General Internal Medicine [facility] [address] Michelle Nash, RN [address] [place] [address] case management Allergies No known active allergiesdocumented [...] fracture of twelfth thoracic vertebra, initial encounter ([facility]) Take 1 Tablet by mouth every [...] mRNA, LNP-s, No Pre serve, 2-Dose Series ([employer]) 03/08/2021,02/15/2021 HepA Inact/HepB Recomb>=18yrs old 12/04/2019,04/2019,05/20/2019 11/19/2019 PPD 06/18/2017, 3,01/09/2012,0306/2011 Pneumococcal Conjugate Vacc, 13 Valent (Prevnar) 05/01/2017 Pneumococcal Polysaccharide PPV23 (Pneumovax) 08/28/2022,10/25/2015,07/14/2012 Season Influenza, Quad, PF, Adjuvanted, 65+ Yrs, IM (FLUAD) 10/07/2020(Deferred: Patient Refused - pt says he already had his shot last month at [facility] Hanyd Lyons and Mckinley Cobian made aware) Seasonal [...] Miscellaneous Notes * Telephone Encounter - Michelle Nash RN - 08/08/2023 12:33 PM EDT Patient calling stating he was advised to have repeat spine/back xrays completed in 3 weeks following recent visit. No orders were placed. Dr. Vazquez/Tasha-please advise on what orders you would like placed. Thank you! Michelle Nash RNresearch soil scientist Care Coordination and Integration [address] [facility] [place] [address] documented in this encounter Plan of Treatment Upcoming Encounters Date Type Specialty Care Team Description 08/30/2023 Office Visit Gastroenterology Lamar Tatum CRNP [address] [place] [address] 09/13/2023 Office Visit [place] [address] [place] [address] 09/30/2023 Office Visit Hematology Oncology Jennifer Ramires MD 200 [facility] [place] [address] 10/08/2023 Procedure Only Urology Frank Peraza MD [address] [place] [address] [place] [address] 10/11/2023 Office Visit Internal Medicine Joaquin Snider PA-C [address] [place] [address] 06/11/2024 Office Visit Ophthalmology Cody Gonzalez, DO [address] [facility] [place] [address] Health Maintenance Due Date Last Done Comments [...] Additional history exists CKD PHOS USE SMARTSET 88404 01/28/202401/03, 07/26/2022, 12/05/2021, Additional history exists Diabetic Foot Exam 03/06/2024 03/06/2023, 0 01/03/2022, 03/02/2021, Additional history exists Albumin/Creatinine Ratio 07/12/2024 023, 10/01/2022, 09/11/2021, Additional history exists CKD HGB USE SMARTSET 24108 07/24/202407/24, 07/12/2023, 07/12/2023, Additional history exists COLONOSCOPY-EVERY 3 YRS AGES 18-100 11/07/2025 11/07/2022, 04/12/2022, 02/01/2022, Additional history exists Lipid Panel 01/28/2028 01/28/2023, 11/02, 08/15/2020, Additional history exists DTaP,Tdap,and Td Vaccines (3 - Td or Tdap) 09/28/2032 09/28/2022, 02/12/2011, 12/19/1999 Pneumococcal Vaccine: 65+ Years Completed 08/28/2022, 05/01/2017, 10/25/2015, Additional history exists COLONOSCOPY-EVERY 5 YRS AGES 18-100 Discontinued 11/07/2022, 04/12/2022, 02/01/2022, Additional history exists GARDASIL-HPV IMMUNIZATION SERIES Aged Out No longer eligible based on patient's age to complete this topic MENINGOCOCCAL (MENACTRA/MENVEO) Aged Out No longer eligible based on patient's age to complete this topic documented as of this encounter Medical Devices Implanted Type Area Sales And Marketing Agent Device Identifier Shelf Expiration Date Model / Serial / Lot Clareon Iol Aspheric Hydrophobic Acrylic Iol Implanted:Qty: 1 on 04/23/2023 by Cody Gonzalez DO at OR [facility] Lens Left: Eye 11/12/2025 CNA0T0 / [id number] / Viatorr Tips Endoprosthesis 8-10 Mm X 8cm / 2cm Implanted:Qty: 1 on 10/07/2020 by Go Alvarado MD at [facility] Right: Abdomen 03/03/2023 [id number] / / [id number] Description:Viatorr TIPS End oprosthesis 8-10 mm x 8cm / 2cm, Manufactored by [employer] Syr Pf 2ml Embospheres 100-300 - [id number] Implanted:Qty: 1 on 04/18/2021 by Kevin Lim DO at OR [facility] Left: Abdomen [employer] [id number] 11/25/2023 S220GH / / [id number] -[id number] Syr Pf 2ml Embospheres 100-300 - [id number] Implanted:Qty: 1 on 03/28/2022 at [facility] [employer] [id number] 08/31/2024 S220GH / / [id number] -5 Clareon Iol Aspheric Hydrophobic Acrylic Iol Implanted:Qty: 1 on 04/02/2023 by Cody Gonzalez DO at OR [facility] Right: Eye JAZMIN 11/12/2025 CNA0T0 / [id number] / documented as of this encounter Advance Directives Documents on File Type Date Recorded Patient Prescription Eyeglass Maker Expl anation Advance Directives and Living Will 12/11/2022 ADVANCE DIRECTIVE / LIVING WILL LIVING WILL Power of Flight Attendant Ramp 12/11/2022 POWER OF A TTORNEY Latest Code [...] the patient have Health Care Power of Flight Attendant Ramp? No Full Code 07/22/2014 9:56 PM 07/24/2014 8:18 PM This order reflects the patients wishes and were consensually agreed upon. Question Answer Comments Discussion of Advance Directives occurred with: Patient Does the patient have a Living Will? No Does the patient have Health Care Power of Flight Attendant Ramp? No Care Teams Wireworker Supervisor Relationship Specialty Start Date End Date Francisco Cisse MD [address] [place] [address] PCP - General Internal Medicine 09/04/21 documented as of this encounter
--- OUTSIDE RECORDS SUMMARY | 2023-11-26 12:39 | External Medical Summary | Summary of Care ---
Author Name Unknown Organization [facility] Address [address] [facility] [place] [address] Phone [phone] Care Team Providers Care Daycare Worker Name Role Phone Francisco Cisse MD Primary Care Provider + Encounter Details Date Type Department Care Team Description 08/12/2023 Glue Plant OperatorMarketing Automation Manager Internal Medicine [facility] [address] [facility] [address] Kriss Maurice, RN Medical home patient encounter* Allergies No known active allergiesdocumented as [...] mRNA, LNP-s, No Pre serve, 2-Dose Series (N4MD) 03/08/2021,02/15/2021 HepA Inact/HepB Recomb>=18yrs old 12/04/2019,04/2019,05/20/2019 11/19/2019 PPD 06/18/2017, 3,01/09/2012,0306/2011 Pneumococcal Conjugate Vacc, 13 Valent (Prevnar) 05/01/2017 Pneumococcal Polysaccharide PPV23 (Pneumovax) 08/28/2022,10/25/2015,07/14/2012 Season Influenza, Quad, PF, Adjuvanted, 65+ Yrs, IM (FLUAD) 10/07/2020(Deferred: Patient Refused - pt says he already had his shot last month at [facility] Lyons and Mckinley Cobian [...] as of this encounter Progress Notes * Kriss Maurice RN - 08/12/2023 3:28 PM EDT SITUATION: CM received f/u call from Tasha Mejia PA-C regarding orders for pt's repeat Xrays BACKGROUND: See TC from 08/08 from Michelle Nash ASSESSMENT: Orders are in for Xrays. Pt can go to [facility] to get them done any time this week. CM placed f/u call to pt with the above information. RECOMMENDATION: Call CM/PCP for any chest pain, shortness of breath, nausea, vomiting, diarrhea, fever, chills or changes in your health status Kriss Maurice RN General Internal Medicine [facility] [place] 200 [facility] [address] documented in this encounter Plan of Treatment Upcoming Encounters Date Type Specialty Care Team Description 08/16/2023 Office Visit Internal Medicine Gege Herbert MD [address] [facility] [address] 08/30/2023 Office Visit Gastroenterology Lamar Tatum CRNP [address] [place] [address] 09/13/2023 Office Visit Orthopedic Surgery Clayton Vazquez MD [address] [place] [address] 09/30/2023 Office Visit Hematology Oncology Jennifer Ramires MD [address] [facility] [address] 10/08/2023 Procedure Only Urology Frank Peraza MD [address] [place] [address] 10/11/2023 Office Visit Internal Medicine Joaquin Snider PA-C [address] [place] [address] 06/11/2024 Office Visit Ophthalmology Cody Gonzalez, DO [address] [place] [address] Health Maintenance Due Date Last Done Comments [...] Additional history exists CKD PHOS USE SMARTSET 10918 01/28/202401/03, 07/26/2022, 12/05/2021, Additional history exists Diabetic Foot Exam 03/06/2024 03/06/2023, 0 01/03/2022, 03/02/2021, Additional history exists Albumin/Creatinine Ratio 07/12/2024 023, 10/01/2022, 09/11/2021, Additional history exists CKD HGB USE SMARTSET 50781 07/24/202407/24, 07/12/2023, 07/12/2023, Additional history exists COLONOSCOPY-EVERY 3 YRS AGES 18-100 08/09/2026 08/09/2023, 11/07/2022, 04/12/2022, Additional history exists Lipid Panel 01/28/2028 01/28/2023, 12/, 08/15/2020, Additional history exists DTaP,Tdap,and Td Vaccines [...] this encounter Medical Devices Implanted Type Area Bagging Machine Operator Device Identifier Shelf Expiration Date Model / Serial / Lot Clareon Iol Aspheric Hydrophobic Acrylic Iol Implanted:Qty: 1 on 04/23/2023 by Cody Gonzalez DO at [facility] Lens Left: Eye 11/12/2025 CNA0T0 / [id number] / Viatorr Tips Endoprosthesis 8-10 Mm X 8cm / 2cm Implanted:Qty: 1 on 10/07/2020 by Go Alvarado MD at [facility] Right: Abdomen 03/03/2023 [id number] / / [id number] Description:Viatorr TIPS End oprosthesis 8-10 mm x 8cm / 2cm, Manufactored by [employer] Syr Pf 2ml Embospheres 100-300 - [id number] Implanted:Qty: 1 on 04/18/2021 by Kevin Lim DO at [facility] Left: Abdomen [employer] [id number] 11/25/2023 S220GH / / [id number] Syr Pf 2ml Embospheres 100-300 - [id number] Implanted:Qty: 1 on 03/28/2022 at [facility] [employer] [id number] 08/31/2024 S220GH / / [id number] -5 Clareon Iol Aspheric Hydrophobic Acrylic Iol Implanted:Qty: 1 on 04/02/2023 by Cody Gonzalez DO at [facility] Right: Eye JAZMIN 11/12/2025 CNA0T0 / [id number] / documented as of this encounter Visit Diagnoses Diagnosis Medical home patient encounter- Primary Other specified examination documented in this encounter Advance Directives Documents on File Type Date Recorded Patient Fusion Juncture Grinder Expl anation Advance Directives and Living Will 12/11/2022 ADVANCE DIRECTIVE / LIVING WILL LIVING WILL Power of Cellophane Bag Machine Operator 12/11/2022 POWER OF A TTORNEY Latest [...] the patient have Health Care Power of Cellophane Bag Machine Operator? No Full Code 07/22/2014 9:56 PM 07/24/2014 8:18 PM This order reflects the patients wishes and were consensually agreed upon. Question Answer Comments Discussion of Advance Directives occurred with: Patient Does the patient have a Living Will? No Does the patient have Health Care Power of Cellophane Bag Machine Operator? No Care Teams Daycare Worker Relationship Specialty Start Date End Date Francisco Cisse MD [address] [place] [address] PCP - General Internal Medicine 09/04/21 documented as of this encounter
--- OUTSIDE RECORDS SUMMARY | 2023-11-26 12:39 | External Medical Summary | Summary of Care ---
Author Name Unknown Organization [facility] Address [address] [facility] [place] [address] Phone [phone] Care Team Providers Care Appliance Servicer Name Role Phone Francisco Cisse MD Primary Care Provider + Reason for Visit * Reason Onset Date Comments Scheduling 08/13/2023 Encounter Details Date Type Department Care Team Description 08/13/2023 Telephone Gastroenterology, [facility] [address] [place] [address] Lamar Tatum CRNP [address] [place] [address] Scheduling Allergies No known active allergiesdocumented as of this encounter (statuses as of 08/13/2023) Medications Medication Sig Dispensed Refills Start Date [...] as of this encounter (statuses as of 08/13/2023) Active Problems Problem Noted Date Closed T12 [...] as of this encounter (statuses as of 08/13/2023) Resolved Problems Problem Noted Date Resolved Date [...] as of this encounter (statuses as of 08/13/2023) Immunizations Name Administration Dates Next Due COVID-19 mRNA, LNP-s, No Pre serve, 2-Dose Series ([employer]) 03/08/2021,02/15/2021 HepA Inact/HepB Recomb>=18yrs old 12/04/2019,04/2019,05/20/2019 11/19/2019 PPD 06/18/2017, 3,01/09/2012,0306/2011 Pneumococcal Conjugate Vacc, 13 Valent (Prevnar) 05/01/2017 Pneumococcal Polysaccharide PPV23 (Pneumovax) 08/28/2022,10/25/2015,07/14/2012 Season Influenza, Quad, PF, Adjuvanted, 65+ Yrs, IM (FLUAD) 10/07/2020(Deferred: Patient Refused - pt says he already had his shot last month at [facility] and Mckinley Cobian made aware) [...] * Telephone Encounter - JEFF Mccabe - 08/13/2023 9:27 AM EDT Please put the pt on my rajendra as well - in between pts - OK to double book around the time of his US appt and I will also check his abdomen to decide if needs paracentesis. * Telephone Encounter - Radha Randhawa RN - 08/13/2023 8:44 AM EDT Lamar asked us to look to see if this patient is scheduled for a paracentesis and if not placed one time orders for a paracentesis. Recently d/c from [facility]. I called [facility] he does not have a paracentesis scheduled. I called and spoke to the patient. He is requesting to have an AB US here at [facility]. Reports he has went for a paracentesis before and did not have enough fluid to be removed. Repo rts he does not want to do that again. Pended a ABD US. Homero please sign and we can send this to scheduling to get scheduled. documented in this encounter Plan of Treatment Upcoming Encounters Date Type Specialty Care Team Description 08/30/2023 Office Visit Gastroenterology Lamar Tatum CRNP [address] [place] [address] 09/13/2023 Office Visit Orthopedic Surgery Clayton Vazquez MD [address] [facility] [place] [address] 09/30/2023 Office Visit Hematology Oncology Jennifer Ramires MD [address] [place] [address] 10/08/2023 Procedure Only Urology Frank Peraza MD [address] [place] [address] 10/11/2023 Office Visit Internal Medicine Joaquin Snider PA-C [facility] [place] [address] 06/11/2024 Office Visit Ophthalmology Cody Gonzalez DO [address] [place], [place] [id number] Scheduled Orders Name Type Priority Associated Diagnoses Orde r Schedule US ABDOMEN LIMITED Medical Imaging Routine Cirrhosis of liver with ascites, unspecified hepatic cirrhosis type (HCC) Expected: 08/13/2023 (Approximate), Expires: 09/12/2024 Health Maintenance Due Date Last Done Comments [...] Additional history exists CKD PHOS USE SMARTSET 29003 01/28/202401/03, 07/26/2022, 12/05/2021, Additional history exists Diabetic Foot Exam 03/06/2024 03/06/2023, 0 01/03/2022, 03/02/2021, Additional history exists Albumin/Creatinine Ratio 07/12/2024 023, 10/01/2022, 09/11/2021, Additional history exists CKD HGB USE SMARTSET 53870 07/24/202407/24, 07/12/2023, 07/12/2023, Additional history exists COLONOSCOPY-EVERY [...] this encounter Medical Devices Implanted Type Area Drywall Applicator Device Identifier Shelf Expiration Date Model / Serial / Lot Clareon Iol Aspheric Hydrophobic Acrylic Iol Implanted:Qty: 1 on 04/23/2023 by Cody Gonzalez DO at OR [facility] Lens Left: Eye 11/12/2025 CNA0T0 / [id number] / Viatorr Tips Endoprosthesis 8-10 Mm X 8cm / 2cm Implanted:Qty: 1 on 10/07/2020 by Go Alvarado MD at [facility] Right: Abdomen 03/03/2023 [id number] / / [id number] Description:Viatorr TIPS End oprosthesis 8-10 mm x 8cm / 2cm, Manufactored by [employer] Syr Pf 2ml Embospheres 100-300 - [id number] Implanted:Qty: 1 on 04/18/2021 by Kevin Lim DO at [facility] Left: Abdomen [employer] [id number] 11/25/2023 S220GH / / [id number] -5 Syr Pf 2ml Embospheres 100-300 - [id number] Implanted:Qty: 1 on 03/28/2022 at [facility] [employer] [id number] 08/31/2024 S220GH / / [id number] -5 Clareon Iol Aspheric Hydrophobic Acrylic Iol Implanted:Qty: 1 on 04/02/2023 by Cdoy Gonzalez DO at OR [facility] Right: Eye JAZMIN 11/12/2025 CNA0T0 / [id number] / documented as of this encounter Visit Diagnoses Diagnosis Cirrhosis of liver with ascites, unspecified hepatic cirrhosis type (HCC)- Primary documented in this encounter Advance Directives Documents on File Type Date Recorded Patient Appetizer Packer Expl anation Advance Directives and Living Will 12/11/2022 ADVANCE DIRECTIVE / LIVING WILL LIVING WILL Power of Signal Maintenance Technician 12/11/2022 POWER OF A TTORNEY Latest [...] the patient have Health Care Power of Signal Maintenance Technician? No Full Code 07/22/2014 9:56 PM 07/24/2014 8:18 PM This order reflects the patients wishes and were consensually agreed upon. Question Answer Comments Discussion of Advance Directives occurred with: Patient Does the patient have a Living Will? No Does the patient have Health Care Power of Signal Maintenance Technician? No Care Teams Appliance Servicer Relationship Specialty Start Date End Date Francisco Cisse MD 200 [facility], [place] [id number] PCP - General Internal Medicine 09/04/21 documented as of this encounter
--- OUTSIDE RECORDS SUMMARY | 2023-11-26 12:39 | External Medical Summary | Summary of Care ---
Author Name Unknown Organization [facility] Address [address] [facility] [place] [address] Phone [phone] Care Team Providers Care Furniture Polisher Name Role Phone Francisco Cisse MD Primary Care Provider + Reason for Visit * Reason Onset Date Comments case management 08/08/2023 Encounter Details Date Type Department Care Team Description 08/08/2023 Software Configuration Engineer Telephone General Internal Medicine [facility] [address] [facility] [id number] Michelle Nash, forest fire management officer Allergies No known active allergiesdocumented as of [...] goal of less than 7.0% ([facility]) Use to test blood sugars 3 times [...] fracture of twelfth thoracic vertebra, initial encounter ([facility]) Take 1 Tablet by mouth in the [...] mRNA, LNP-s, No Pre serve, 2-Dose Series ([employer]) 03/08/2021,02/15/2021 HepA Inact/HepB Recomb>=18yrs old 12/04/2019,04/2019,05/20/2019 11/19/2019 PPD 06/18/2017, 3,01/09/2012,06/2011 Pneumococcal Conjugate Vacc, 13 Valent (Prevnar) 05/01/2017 Pneumococcal Polysaccharide PPV23 (Pneumovax) 08/28/2022,10/25/2015,07/14/2012 Season Influenza, Quad, PF, Adjuvanted, 65+ Yrs, IM (FLUAD) 10/07/2020(Deferred: Patient Refused - pt says he already had his shot last month at [facility] and Mckinley Cobian made aware) [...] encounter Miscellaneous Notes * Telephone Encounter - Tasha La PA-C - 08/12/2023 3:05 PM EDT Please see order from 08/02/23 - Order XR THORACOLUMBAR SPINE MIN 2 VIEWS [XRTLSP] (Order [id number]) Order Questions Question Answer What is the Reason for Study? T12 Chance fracture [facility] being performed[facility] Reason For Exam Dx: Closed fracture of twelfth thoracic vertebra, unspecified fracture morphology, initial encounter (HCC) [S22.089A (ICD-10-CM)] Comments: Standing ap and lateral Supine lateral Comments Standing ap and lateral Supine lateral Reference Links Priority and Order Details Priority Order Status Class Routine Sent To Radiology Order Information Order Date/Time Start Date/Time End Date/Time 08/02/23 0857 08/02/2023 None Associated Diagnoses Closed fracture of twelfth thoracic vertebra, unspecified fracture morphology, initial encounter (HCC) [S22.089A] - Primary * Telephone Encounter - Michelle Nash RN - 08/08/2023 12:33 PM EDT Patient calling stating he was advised to have repeat spine/back xrays completed in 3 weeks following recent visit. No orders were placed. Dr. Vazquez/Tasha-please advise on what orders you would like placed. Thank you! Michelle Nash RNurban redevelopment specialist Care Coordination and Integration [address] [place] [address] documented in this encounter Plan of Treatment Upcoming Encounters Date Type Specialty Care Team Description 08/16/2023 Office Visit Internal Medicine Gege Herbert MD [address] [place] [address] 08/30/2023 Office Visit Gastroenterology Lamar Tatum CRNP [address] [place] [address] 09/13/2023 Office Visit Orthopedic Surgery Clayton Vazquez MD [address] [place] [address] 09/30/2023 Office Visit Hematology Oncology Jennifer Ramires MD [address] [place] [address] 10/08/2023 Procedure Only Urology Frank Peraza MD [address] [place] [address] 10/11/2023 Office Visit Internal Medicine Joaquin Snider PA-C 200 [place] [address] 06/11/2024 Office Visit Ophthalmology Cody Gonzalez DO [address] [facility] [place] [address] Health Maintenance Due Date Last Done [...] Additional history exists CKD PHOS USE SMARTSET 61785 01/28/202401/03, 07/26/2022, 12/05/2021, Additional history exists Diabetic Foot Exam 03/06/2024 03/06/2023, 0 01/03/2022, 03/02/2021, Additional history exists Albumin/Creatinine Ratio 07/12/2024 023, 10/01/2022, 09/11/2021, Additional history exists CKD HGB USE SMARTSET 73466 07/24/202407/24, 07/12/2023, 07/12/2023, Additional history exists COLONOSCOPY-EVERY [...] this encounter Medical Devices Implanted Type Area Irish Moss Operator Device Identifier Shelf Expiration Date Model / Serial / Lot Clareon Iol Aspheric Hydrophobic Acrylic Iol Implanted:Qty: 1 on 04/23/2023 by Cody Gonzalez DO at OR [facility] Lens Left: Eye 11/12/2025 CNA0T0 / [id number] 136 / Viatorr Tips Endoprosthesis 8-10 Mm X 8cm / 2cm Implanted:Qty: 1 on 10/07/2020 by Go Alvarado MD at [facility] Right: Abdomen 03/03/2023 [id number] / / [id number] Description:Viatorr TIPS End oprosthesis 8-10 mm x 8cm / 2cm, Manufactored by [employer] Syr Pf 2ml Embospheres 100-300 - [id number] Implanted:Qty: 1 on 04/18/2021 by Kevin Lim DO at OR [facility] Left: Abdomen [employer] [id number] 11/25/2023 S220GH / / [id number] -5 Syr Pf 2ml Embospheres 100-300 - [id number] Implanted:Qty: 1 on 03/28/2022 at [facility] [employer] [id number] 08/31/2024 S220GH / / [id number] -5 Clareon Iol Aspheric Hydrophobic Acrylic Iol Implanted:Qty: 1 on 04/02/2023 by Cody Gonzalez DO at OR [facility] Right: Eye JAZMIN 11/12/2025 CNA0T0 / [id number] / documented as of this encounter Advance Directives Documents on File Type Date Recorded Patient Communicable Disease Specialist Expl anation Advance Directives and Living Will 12/11/2022 ADVANCE DIRECTIVE / LIVING WILL LIVING WILL Power of Switchboard Operator Supervisor 12/11/2022 POWER OF A TTORNEY Latest [...] the patient have Health Care Power of Switchboard Operator Supervisor? No Full Code 07/22/2014 9:56 PM 07/24/2014 8:18 PM This order reflects the patients wishes and were consensually agreed upon. Question Answer Comments Discussion of Advance Directives occurred with: Patient Does the patient have a Living Will? No Does the patient have Health Care Power of Switchboard Operator Supervisor? No Care Teams Furniture Polisher Relationship Specialty Start Date End Date Francicso Cisse MD [address] [place] [address] PCP - General Internal Medicine 09/04/21 documented as of this encounter
--- OUTSIDE RECORDS SUMMARY | 2023-11-26 12:39 | External Medical Summary | Summary of Care ---
Author Name Unknown Organization [facility] Address [address] [facility] [place] [address] Phone [phone] Care Team Providers Care Ditto Machine Operator Name Role Phone Francisco Cisse MD Primary Care Provider + Reason for Visit * Reason Onset Date Comments Scheduling 08/13/2023 Encounter Details Date Type Department Care Team Description 08/13/2023 Telephone Gastroenterology, [facility] [address] [place] [address] Lamar Tatum CRNP [address] [place] [address] Scheduling Allergies No known active allergiesdocumented as [...] hemoglobin A1c goal of less than 7.0% ([facility]) Use to test blood sugars [...] fracture of twelfth thoracic vertebra, initial encounter ([facility]) Take 1 Tablet by mouth [...] mRNA, LNP-s, No Pre serve, 2-Dose Series ([employer]) 03/08/2021,02/15/2021 HepA Inact/HepB Recomb>=18yrs old 12/04/2019,04/2019,05/20/2019 11/19/2019 PPD 06/18/2017, 3,01/09/2012,0306/2011 Pneumococcal Conjugate Vacc, 13 Valent (Prevnar) 05/01/2017 Pneumococcal Polysaccharide PPV23 (Pneumovax) 08/28/2022,10/25/2015,07/14/2012 Season Influenza, Quad, PF, Adjuvanted, 65+ Yrs, IM (FLUAD) 10/07/2020(Deferred: Patient Refused - pt says he already had his shot last month at [facility] and [facility]ckinley Cobian [...] Miscellaneous Notes * Telephone Encounter - ESTELLE Mcneal - 08/13/2023 10:14 AM EDT Spoke to pt, US scheduled on 08/20 * Telephone Encounter - JEFF Mccabe - [...] orders for a paracentesis. Recently d/c from [facility]. I called [facility] he does not have a paracentesis scheduled. I called and spoke to the patient. He is requesting to have an AB US here at [facility]. Reports he has went for [...] Lamar Tatum CRNP [address] [place] [address] 09/13/2023 Office Visit Orthopedic Surgery [facility] [address] [facility] [address] 09/30/2023 Office Visit Hematology Oncology Jennifer Ramires MD 200 [facility] [place] [address] 10/08/2023 Procedure Only Urology Frank Peraza MD [address] [facility] [address] [place] [address] 10/11/2023 Office Visit Internal Medicine Joaquin Snider PA-C [address] [place] [address] 06/11/2024 Office Visit Ophthalmology Cody Gonzalez DO [address] [place] [address] Scheduled Orders Name Type Priority Associated [...] Additional history exists CKD PHOS USE SMARTSET 76678 01/28/202401/03, 07/26/2022, 12/05/2021, Additional history exists Diabetic Foot Exam 03/06/2024 03/06/2023, 0 01/03/2022, 03/02/2021, Additional history exists Albumin/Creatinine Ratio 07/12/2024 023, 10/01/2022, 09/11/2021, Additional history exists CKD HGB USE SMARTSET 96175 07/24/202407/24, 07/12/2023, 07/12/2023, Additional history exists COLONOSCOPY-EVERY [...] this encounter Medical Devices Implanted Type Area Planogrammer Device Identifier Shelf Expiration Date Model / Serial / Lot Clareon Iol Aspheric Hydrophobic Acrylic Iol Implanted:Qty: 1 on 04/23/2023 by Cody Gonzalez DO at [facility] Lens Left: Eye 11/12/2025 CNA0T0 / [id number] 136 / Viatorr Tips Endoprosthesis 8-10 Mm X 8cm / 2cm Implanted:Qty: 1 on 10/07/2020 by Go Alvarado MD at [facility] Right: Abdomen 03/03/2023 [id number] / / [id number] Description:Viatorr TIPS End oprosthesis 8-10 mm x 8cm / 2cm, Manufactored by [employer] Syr Pf 2ml Embospheres 100-300 - [id number] Implanted:Qty: 1 on 04/18/2021 by Kevin Lim DO at [facility] Left: Abdomen [employer] [id number] 11/25/2023 S220GH / / [id number] -5 Syr Pf 2ml Embospheres 100-300 - [id number] Implanted:Qty: 1 on 03/28/2022 at [facility] [employer] [id number] 08/31/2024 S220GH / / [id number] -5 Clareon Iol Aspheric Hydrophobic Acrylic Iol Implanted:Qty: 1 on 04/02/2023 by Cody Gonzalez DO at OR [facility] Right: Eye JAZMIN 11/12/2025 CNA0T0 / [id number] / documented as of this encounter Visit Diagnoses Diagnosis Cirrhosis of liver with ascites, unspecified hepatic cirrhosis type (HCC)- Primary documented in this encounter Advance Directives Documents on File Type Date Recorded Patient Hearing Stenographer Expl anation Advance Directives and Living Will 12/11/2022 ADVANCE DIRECTIVE / LIVING WILL LIVING WILL Power of Security Installer 12/11/2022 POWER OF A TTORNEY Latest Code [...] the patient have Health Care Power of Security Installer? No Full Code 07/22/2014 9:56 PM 07/24/2014 8:18 PM This order reflects the patients wishes and were consensually agreed upon. Question Answer Comments Discussion of Advance Directives occurred with: Patient Does the patient have a Living Will? No Does the patient have Health Care Power of Security Installer? No Care Teams Ditto Machine Operator Relationship Specialty Start Date End Date Francisco Cisse MD [address] [place] [address] PCP - General Internal Medicine 09/04/21 documented as of this encounter
--- OUTSIDE RECORDS SUMMARY | 2023-11-26 12:39 | External Medical Summary | Summary of Care ---
Author Name Unknown Organization [facility] [address] [facility] [address] Phone [phone] Care Team Providers Care Guest Service Representative Name Role Phone Francisco Cisse MD Primary Care Provider + Reason for Visit * Reason Onset Date Comments Referral 08/12/2023 Encounter Details Date Type Department Care Team Description 08/12/2023 Telephone Pharmacy Call Center [phone] [place] [address] [address], [facility] [address] [facility] [place] [phone] Referral Allergies No known active allergiesdocumented as [...] hemoglobin A1c goal of less than 7.0% ([facility]) Use to test blood sugars 3 times [...] mRNA, LNP-s, No Pre serve, 2-Dose Series (evOLED) 03/08/2021,02/15/2021 HepA Inact/HepB Recomb>=18yrs old 12/04/2019,04/2019,05/20/2019 11/19/2019 PPD 06/18/2017, 3,01/09/2012,0306/2011 Pneumococcal Conjugate Vacc, 13 Valent (Prevnar) 05/01/2017 Pneumococcal Polysaccharide PPV23 (Pneumovax) 08/28/2022,10/25/2015,07/14/2012 Season Influenza, Quad, PF, Adjuvanted, 65+ Yrs, IM (FLUAD) 10/07/2020(Deferred: Patient Refused - pt says he already had his shot last month at [facility] Handy Lyons and Mckinley Cobian made [...] * Telephone Encounter - Jose Ramon Payne [facility] - 08/12/2023 1:50 PM EDT Referral received and reviewed. Reason for referral: Pain Please Schedule patient. Referring provider: Francisco Cisse MD Initial appt length: 60 min Appointment type indicated: Inperson Required Preferred Clinic for Appointment: [facility] or [facility] Jose Ramon Payne [facility] 08/12/2023, 1:51 PM * Telephone Encounter - RICO Hernandez Tech - 08/12/2023 1:43 PM EDT Comments Pharmacist Medication Therapy Management: Minimum frequency patient should be seen in person for medication management: as appropriate per clinical condition and patient status By my signature, I understand that my patient Luis Hale will have his medication therapy managedby the [facility] ([facility]) per established policies, procedures, and protocols. I also certify that this referral may serve as an initiation of service for the management of drug therapy in the above noted patient. [facility] providers will be responsible for scheduling patient visits, obtaining appropriate laboratory studies, and adjusting medication management therapy per patient's need, in addition to those roles spelled out in the clinic policy, procedures, and drug management protocols. I understand that the service provided by the [facility] Clinic is voluntary and have informed patient that they can refuse the service at their discretion. I am aware that the [facility] will provide me with a copy of the patient encounter via my [employer] In[employer]cco[employer]. I authorize the [facility] Clinic to carry out these activities on [...] Visit Internal Medicine Gege Herbert MD [address] [facility] [place] [address] 08/30/2023 Office Visit Gastroenterology Lamar Tatum CRNP [address] [facility] [place] [address] 09/13/2023 Office Visit Orthopedic Surgery Clayton Vazquez MD [address] [place] [address] 09/30/2023 Office Visit Hematology Oncology Jennifer Ramires MD [address] [facility] [place] [address] 10/08/2023 Procedure Only Urology Frank Peraza MD [address] [facility] [address] [place] [address] 10/11/2023 Office Visit Internal Medicine Joaquin Snider PA-C [address] [facility] [place] [address] 06/11/2024 Office Visit Ophthalmology Cody Gonzalez DO [...] Additional history exists CKD PHOS USE SMARTSET 96987 01/28/202401/03, 07/26/2022, 12/05/2021, Additional history exists Diabetic Foot Exam 03/06/2024 03/06/2023, 0 01/03/2022, 03/02/2021, Additional history exists Albumin/Creatinine Ratio 07/12/2024 023, 10/01/2022, 09/11/2021, Additional history exists CKD HGB USE SMARTSET 63918 07/24/202407/24, 07/12/2023, 07/12/2023, Additional history exists COLONOSCOPY-EVERY [...] this encounter Medical Devices Implanted Type Area Pocket Secretary Assembler Device Identifier Shelf Expiration Date Model / Serial / Lot Clareon Iol Aspheric Hydrophobic Acrylic Iol Implanted:Qty: 1 on 04/23/2023 by Cody Gonzalez DO at [facility] Lens Left: Eye 11/12/2025 CNA0T0 / [id number] / Viatorr Tips Endoprosthesis 8-10 Mm X 8cm / 2cm Implanted:Qty: 1 on 10/07/2020 by Go Alvarado MD at [facility] Right: Abdomen 03/03/2023 [id number] / / [id number] Description:Viatorr TIPS End oprosthesis 8-10 mm x 8cm / 2cm, Manufactored by [employer] Syr Pf 2ml Embospheres 100-300 - [id number] Implanted:Qty: 1 on 04/18/2021 by Kvein Lim DO at [facility] Left: Abdomen [employer] [id number] 11/25/2023 S220GH / / [id number] -[id number] Syr Pf 2ml Embospheres 100-300 - [id number] Implanted:Qty: 1 on 03/28/2022 at [facility] [employer] [id number] 08/31/2024 S220GH / / [id number] -[id number] Clareon Iol Aspheric Hydrophobic Acrylic Iol Implanted:Qty: 1 on 04/02/2023 by Cody Gonzalez DO at [facility] Right: Eye JAZMIN 11/12/2025 CNA0T0 / [id number] / documented as of this encounter Advance Directives Documents on File Type Date Recorded 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 No Full Code 07/22/2014 9:56 PM 07/24/2014 8:18 PM This order reflects the patients wishes and were consensually agreed upon. Question Answer Comments Discussion of Advance Directives occurred with: Patient Does the patient have a Living Will? No Does the patient have Health Care Power of Concrete Bucket Hooker? No Care Teams Guest Service Representative Relationship Specialty Start Date End Date Francisco Cisse MD [address] [facility] [place] [address] PCP - General Internal Medicine 09/04/21 documented as of this encounter
--- OUTSIDE RECORDS SUMMARY | 2023-11-26 12:39 | External Medical Summary | Summary of Care ---
Author Name Unknown Organization [facility] Address [address] [facility] [place] [address] Phone [phone] Care Team Providers Care Certified Coder Name Role Phone Francisco Cisse MD Primary Care Provider + Encounter Details Date Type Department Care Team Description 08/09/2023 Result Scan Unspecified Department Edis Price, DO [address] [place] [address] <No scans attached> Allergies No known active allergiesdocumented as of [...] fracture of twelfth thoracic vertebra, initial encounter ([facility]) Take 1 Tablet by mouth in the [...] mRNA, LNP-s, No Pre serve, 2-Dose Series ([employer]) 03/08/2021,02/15/2021 HepA Inact/HepB Recomb>=18yrs old 12/04/2019,04/2019,05/20/2019 11/19/2019 PPD 06/18/2017, 3,01/09/2012,0306/2011 Pneumococcal Conjugate Vacc, 13 Valent (Prevnar) 05/01/2017 Pneumococcal Polysaccharide PPV23 (Pneumovax) 08/28/2022,10/25/2015,07/14/2012 Season Influenza, Quad, PF, Adjuvanted, 65+ Yrs, IM (FLUAD) 10/07/2020(Deferred: Patient Refused - pt says he already had his shot last month at [facility] [employer]y Lyons and Mckinley Cobian made [...] Tatum CRNP [address] [place] [address] 09/13/2023 Office Visit Orthopedic Surgery Clayton Vazquez MD [address] [facility] [place] [id number] 09/30/2023 Office Visit Hematology Oncology Jennifer Ramires MD [address] [facility] [address] 10/08/2023 Procedure Only Urology Frank Peraza MD [address] [facility] [address] [place] [address] 10/11/2023 Office Visit Internal Medicine Joaquin Snider PA-C [address] [facility] [address] 06/11/2024 Office Visit Ophthalmology Cody Gonzalez DO [address] [place] [address] Health Maintenance Due [...] Additional history exists CKD PHOS USE SMARTSET 69796 01/28/202401/03, 07/26/2022, 12/05/2021, Additional history exists Diabetic Foot Exam 03/06/2024 03/06/2023, 0 01/03/2022, 03/02/2021, Additional history exists Albumin/Creatinine Ratio 07/12/2024 023, 10/01/2022, 09/11/2021, Additional history exists CKD HGB USE SMARTSET 36126 07/24/202407/24, 07/12/2023, 07/12/2023, Additional history exists COLONOSCOPY-EVERY [...] this encounter Medical Devices Implanted Type Area Inspecting Supervisor Device Identifier Shelf Expiration Date Model / Serial / Lot Clareon Iol Aspheric Hydrophobic Acrylic Iol Implanted:Qty: 1 on 04/23/2023 by Cody Gonzalez DO at OR [facility] Lens Left: Eye 11/12/2025 CNA0T0 / [id number] / Viatorr Tips Endoprosthesis 8-10 Mm X 8cm / 2cm Implanted:Qty: 1 on 10/07/2020 by Go Alvarado MD at [facility] Right: Abdomen 03/03/2023 [id number] / / [id number] Description:Viatorr TIPS End oprosthesis 8-10 mm x 8cm / 2cm, Manufactored by [employer] Syr Pf 2ml Embospheres 100-300 - [id number] Implanted:Qty: 1 on 04/18/2021 by Kevin Lim DO at OR [facility] Left: Abdomen [employer] [id number] 11/25/2023 S220GH / / [id number] -[id number] Syr Pf 2ml Embospheres 100-300 - [id number] Implanted:Qty: 1 on 03/28/2022 at [facility] [employer] [id number] 08/31/2024 S220GH / / [id number] -5 Clareon Iol Aspheric Hydrophobic Acrylic Iol Implanted:Qty: 1 on 04/02/2023 by Cody Gonzalez DO at OR [facility] Right: Eye JAZMIN 11/12/2025 CNA0T0 / [id number] / documented as of this encounter Procedures Procedure Name Priority Date/Time Associated Diagnosis Comments PATHOLOGY SCANNED RESULT 08/09/2023 documented in this encounter Results * PATHOLOGY SCANNED RESULT (08/09/2023) 08/09/2023 Edis Price DO PATHOLOGY documented in this encounter Advance Directives Documents on File Type Date Recorded Patient Product Safety Expert Expl anation Advance Directives and Living Will 12/11/2022 ADVANCE DIRECTIVE / LIVING WILL LIVING WILL Power of Managing Broker 12/11/2022 POWER OF A TTORNEY Latest Code [...] the patient have Health Care Power of Managing Broker? No Full Code 07/22/2014 9:56 PM 07/24/2014 8:18 PM This order reflects the patients wishes and were consensually agreed upon. Question Answer Comments Discussion of Advance Directives occurred with: Patient Does the patient have a Living Will? No Does the patient have Health Care Power of Managing Broker? No Care Teams Certified Coder Relationship Specialty Start Date End Date Francisco Cisse MD [address] [place] [address] PCP - General Internal Medicine 09/04/21 documented as of this encounter
--- OUTSIDE RECORDS SUMMARY | 2023-11-26 12:39 | External Medical Summary | Summary of Care ---
Author Name Unknown Organization [facility] Address [address] [facility] [place] [address] Phone [phone] Care Team Providers Care Senior Business Development Manager Name Role Phone Francisco Cisse MD Primary Care Provider + Encounter Details Date Type Department Care Team Description 08/09/2023 Result Scan Unspecified Department Edis Price, DO [address] [place] [address] <No scans attached> Allergies No known active [...] fracture of twelfth thoracic vertebra, initial encounter ([facility]) Take 1 Tablet by mouth in the [...] mRNA, LNP-s, No Pre serve, 2-Dose Series ([employer]) 03/08/2021,02/15/2021 HepA Inact/HepB Recomb>=18yrs old 12/04/2019,04/2019,05/20/2019 11/19/2019 PPD 06/18/2017, 3,01/09/2012,0306/2011 Pneumococcal Conjugate Vacc, 13 Valent (Prevnar) 05/01/2017 Pneumococcal Polysaccharide PPV23 (Pneumovax) 08/28/2022,10/25/2015,07/14/2012 Season Influenza, Quad, PF, Adjuvanted, 65+ Yrs, IM (FLUAD) 10/07/2020(Deferred: Patient Refused - pt says he already had his shot last month at [facility] Handy Lyons and Mckinley [...] Tatum CRNP [address] [place] [address] 09/13/2023 Office Visit Orthopedic Surgery Clayton Vazquez MD [address] [facility] [place] [phone] 09/30/2023 Office Visit Hematology Oncology Jennifer Ramires MD [address] [facility] [address] 10/08/2023 Procedure Only Urology Frank Peraza MD [address] [facility] [address] [place] [address] 10/11/2023 Office Visit Internal Medicine Joaquin Snider PA-C [address] [facility] [address] 06/11/2024 Office Visit Ophthalmology Cody Gonzalez DO [...] Additional history exists CKD PHOS USE SMARTSET 74887 01/28/202401/03, 07/26/2022, 12/05/2021, Additional history exists Diabetic Foot Exam 03/06/2024 03/06/2023, 0 01/03/2022, 03/02/2021, Additional history exists Albumin/Creatinine Ratio 07/12/2024 023, 10/01/2022, 09/11/2021, Additional history exists CKD HGB USE SMARTSET 59148 07/24/202407/24, 07/12/2023, 07/12/2023, Additional history exists COLONOSCOPY-EVERY [...] this encounter Medical Devices Implanted Type Area Release Of Information Clerk Device Identifier Shelf Expiration Date Model / Serial / Lot Clareon Iol Aspheric Hydrophobic Acrylic Iol Implanted:Qty: 1 on 04/23/2023 by Cody Gonzalez DO at OR [facility] Lens Left: Eye 11/12/2025 CNA0T0 / [id number] 136 / Viatorr Tips Endoprosthesis 8-10 Mm X 8cm / 2cm Implanted:Qty: 1 on 10/07/2020 by Go Alvarado MD at [facility] Right: Abdomen 03/03/2023 [id number] / / [id number] Description:Viatorr TIPS End oprosthesis 8-10 mm x 8cm / 2cm, Manufactored by [employer] Syr Pf 2ml Embospheres 100-300 - [id number] Implanted:Qty: 1 on 04/18/2021 by Kevin Lim DO at OR [facility] Left: Abdomen [employer] [id number] 11/25/2023 S220GH / / [id number] -5 Syr Pf 2ml Embospheres 100-300 - [id number] Implanted:Qty: 1 on 03/28/2022 at [facility] [employer] [id number] 08/31/2024 S220GH / / [id number] -5 Clareon Iol Aspheric Hydrophobic Acrylic Iol Implanted:Qty: 1 on 04/02/2023 by Cody Gonzalez DO at OR [facility] Right: Eye JAZMIN 11/12/2025 CNA0T0 / [id number] / documented as of this encounter Procedures Procedure Name Priority Date/Time Associated Diagnosis Comments PATHOLOGY SCANNED RESULT 08/09/2023 documented in this encounter Results * PATHOLOGY SCANNED RESULT (08/09/2023) 08/09/2023 Edis Price DO PATHOLOGY documented in this encounter Advance Directives Documents on File Type Date Recorded 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 No Full Code 07/22/2014 9:56 PM 07/24/2014 8:18 PM This order reflects the patients wishes and were consensually agreed upon. Question Answer Comments Discussion of Advance Directives occurred with: Patient Does the patient have a Living Will? No Does the patient have Health Care Power of Claims Configuration Analyst? No Care Teams Senior Business Development Manager Relationship Specialty Start Date End Date Francisco Cisse MD [address] [place] [address] PCP - General Internal Medicine 09/04/21 documented as of this encounter
--- OUTSIDE RECORDS SUMMARY | 2023-11-26 12:40 | External Medical Summary | Summary of Care ---
Author Name Unknown Organization [facility] Address [address] [facility] [place] [address] Phone [phone] Care Team Providers Care Trust And Estates Paralegal Name Role Phone Francisco Cisse MD Primary Care Provider + Reason for Visit * Reason Onset Date Comments Appointment 08/03/2023 MRI Encounter Details Date Type Department Care Team Description 08/03/2023 Telephone [address] [facility] [place] [address] Gely Mercer, RT (M) Appointment (MRI) Allergies No known active allergiesdocumented as of this encounter (statuses as of 08/03/2023) Medications Medication Sig Dispensed Refills Start Date [...] before bedtime. 180 Tablet 5 01/29/2023 Active Lactulose 10 GM/15ML Oral Solution (Constulose)Indicat ions:Other cirrhosis of liver (HCC) Take 15 mL by mouth in the morning and 15 mL before bedtime. 2700 mL 6 01/29/2023 Active Mirtazapine 30 MG Oral Tablet (Remeron)Indication s:Neoplastic (malignant) related fatigue,Depression due to physical illness Take 1 Tablet by mouth at bedtime. 90 Tablet 1 02/15/2023 Active Additional Information Patient not taking.Reported on 07/12/2023 Repaglinide 1 MG Oral TabletIndications:T ype 2 [...] by mouth in the morning. 0 Active Probiotic Multi-Enzyme Oral Tablet Take by mouth. 0 Active N-Acetyl Cysteine 600 MG Oral Tablet (Acetylcysteine (Nutrient)) Take by mouth. 0 Active Citalopram Hydrobromide 10 MG Oral Tablet (CeleXA)Indications :Anxiety state Take 1 Tablet by mouth in the morning. 90 Tablet 1 04/08/2023 Active FreeStyle Wang 2 Sensor Use as directed. Every 14 days 2 Each 5 05/28/2023 Active Zinc Acetate 50 MG Oral Capsule 50 mg. 0 05/17/2023 Active Multivitamin Adults Oral Tablet 1 Tablet. 0 05/17/2023 Active Probiotic (Lactobacillus) Oral Capsule 1 Capsule. 0 05/17/2023 Active Lantus SoloStar 100 UNIT/ML Subcutaneous Solution Pen-injectorIndicat ions:Type 2 diabetes mellitus with hemoglobin A1c goal of less than 7.0% (HCC) Inject 20 Units under the skin daily with dinner. 15 mL 3 06/05/2023 Active Ondansetron HCl 4 MG Oral TabletIndications:N ausea without vomiting,Liver cell carcinoma (HCC),GAVE (gastric antral vascular ectasia) Take 1 Tablet by mouth every 8 hours as needed for Nausea. 30 Tablet 0 06/12/2023 Active Additional Information Patient not taking.Reported on 07/12/2023 Baclofen 5 MG Oral Tablet (Lioresal)Indicatio ns:Other closed fracture of twelfth thoracic vertebra, initial encounter ([facility]) Take 1 Tablet by mouth in the morning and 1 Tablet in the evening. 30 Tablet 1 07/12/2023 Active oxyCODONE HCl 5 MG Oral Tablet (Oxy IR)Indications:Othe r closed fracture of twelfth thoracic vertebra, initial encounter ([facility]) Take 1 Tablet by mouth [...] the morning. 180 Tablet 2 07/30/2023 Active Hospital, Clinic, or Other Facility Administered [...] as of this encounter (statuses as of 08/03/2023) Active Problems Problem Noted Date Closed T12 [...] as of this encounter (statuses as of 08/03/2023) Resolved Problems Problem Noted Date Resolved Date [...] as of this encounter (statuses as of 08/03/2023) Immunizations Name Administration Dates Next Due COVID-19 mRNA, LNP-s, No Pre serve, 2-Dose Series ([employer]) 03/08/2021,02/15/2021 HepA Inact/HepB Recomb>=18yrs old 12/04/2019,04/2019,05/20/2019 11/19/2019 [...] encounter Miscellaneous Notes * Telephone Encounter - RT Riccardo (Cameron) - 08/03/2023 4:31 PM EDT Name: Luis Hale Do you have any of the following: Pacemaker, stents, heart valves, aneurysm clips? Yes Tips stents Have you ever worked with metal or have you ever gotten metal in your eyes? No Have you had a colonoscopy in the last 30 days? No On dialysis? No Do you have any dermals or body piercing's? No or ? Do you wear an insulin pump or diabetic monitor?No RT Riccardo (Cameron) documented in this encounter Plan of Treatment Upcoming Encounters Date Type Specialty Care Team Description 08/08/2023 Imaging Radiology 08/30/2023 Office Visit Gastroenterology Lamar Tatum CRNP [address] [place] [address] 09/13/2023 Office Visit Orthopedic Surgery Clayton Vazquez MD [address] [facility] [place] [address] 09/30/2023 Office Visit Hematology Oncology Jennifer Ramires MD 200 [facility] [place] [address] 10/08/2023 Procedure Only Urology Frank Peraza MD [address] [place] [address] [facility] [place] [address] 10/11/2023 Office Visit Internal Medicine Joaquin Snider PA-C 200 [facility] [place] [address] 06/11/2024 Office Visit Ophthalmology Cody Gonzalez DO [address] [place] [address] Health Maintenance Due Date Last Done Comments Zoster Vaccines (1 of 2) 2000 COVID-19 Vaccine (3 - Pfizer risk series) 04/05/2021 03/08/2021, 02/15/2021 Depression Screening, Annual for Pts 12 and Over 05/03/2022 05/03/2021 Influenza Vaccine (FLU shot) (#1) 2023 09/15/2021, 09/15/2021, 09/30/2020, Additional history exists HbA1c 11/27/2023 05/28/2023, 01/03, 10/10/2022, Additional history exists DIABETES-EYE EXAM 01/17/2024 01/17/2023, , 01/17/2023, Additional history exists GFR 01/24/2024 07/24/2023, 07/02, 06/29/2023, Additional history exists CKD PHOS USE SMARTSET 14896 01/28/202401/03, 07/26/2022, 12/05/2021, Additional history exists DIABETES-FOOT EXAM 03/06/2024 03/06/2023, 0 01/03/2022, 03/02/2021, Additional history exists Albumin/Creatinine Ratio 07/12/2024 023, 10/01/2022, 09/11/2021, Additional history exists CKD HGB USE SMARTSET 80001 07/24/202407/24, 07/12/2023, 07/12/2023, Additional history exists COLONOSCOPY-EVERY [...] this encounter Medical Devices Implanted Type Area Disposal Plant Operator Device Identifier Shelf Expiration Date Model / Serial / Lot Clareon Iol Aspheric Hydrophobic Acrylic Iol Implanted:Qty: 1 on 04/23/2023 by Cody Gonzalez DO at [facility] Lens Left: Eye 11/12/2025 CNA0T0 / [id number] / Viatorr Tips Endoprosthesis 8-10 Mm X 8cm / 2cm Implanted:Qty: 1 on 10/07/2020 by Go Alvarado MD at [facility] Right: Abdomen 03/03/2023 [id number] / / [id number] Description:Viatorr TIPS End oprosthesis 8-10 mm x 8cm / 2cm, Manufactored by [employer] Syr Pf 2ml Embospheres 100-300 - [id number] Implanted:Qty: 1 on 04/18/2021 by Kevin Lim DO at OR [facility] Left: Abdomen [employer] [id number] 11/25/2023 S220GH / / [id number] -[id number] Syr Pf 2ml Embospheres 100-300 - [id number] Implanted:Qty: 1 on 03/28/2022 at [facility] [employer] [id number] 08/31/2024 S220GH / / [id number] -5 Clareon Iol Aspheric Hydrophobic Acrylic Iol Implanted:Qty: 1 on 04/02/2023 by Cody Gonzalez DO at OR [facility] Right: Eye JAZMIN 11/12/2025 CNA0T0 / [id number] / documented as of this encounter Advance Directives Documents on File Type Date Recorded Patient Coke Drawer Expl anation Advance Directives and Living Will 12/11/2022 ADVANCE DIRECTIVE / LIVING WILL LIVING WILL Power of Health Manager 12/11/2022 POWER OF A TTORNEY Latest [...] the patient have Health Care Power of Health Manager? No Full Code 07/22/2014 9:56 PM 07/24/2014 8:18 PM This order reflects the patients wishes and were consensually agreed upon. Question Answer Comments Discussion of Advance Directives occurred with: Patient Does the patient have a Living Will? No Does the patient have Health Care Power of Health Manager? No Care Teams Trust And Estates Paralegal Relationship Specialty Start Date End Date Francisco Cisse MD [address] [place] [address] PCP - General Internal Medicine 09/04/21 documented as of this encounter
--- OUTSIDE RECORDS SUMMARY | 2023-11-26 12:40 | External Medical Summary | Summary of Care ---
Author Name Unknown Organization [facility] Address [address] [place] [address] Phone [phone] Care Team Providers Care Cold Rolling Coordinator Name Role Phone Francisco Cisse MD Primary Care Provider + Reason for Visit * Reason Comments NEW PATIENT Thoracic fx * Evaluate & Treat - Unlimited Visits (Within 3 days (urgent)) - Authorized Specialty Diagnoses / Procedures Referred By Contac t Referred To Contact Neuro/Ortho Surgery - Spine. / Neurological Surgery Diagnoses Other closed fracture of twelfth thoracic vertebra, initial encounter ([facility]) Closed fracture of eleventh thoracic vertebra, unspecified fracture morphology, initial encounter ([facility]) Closed unstable burst fracture of twelfth thoracic vertebra, initial encounter ([facility]) Francisco Cisse MD [address] [place] [address] Referral ID Status Reason Start Date Expiration Date Visits Requested Visits Authorized [id number] Authorized Specialty Services Required 07/25/[phone] Encounter Details Date Type Department Care Team Description 08/02/2023 Office Visit Orthopaedics Spine Surgery, [place] [address] [place] [address] Clayton Vazquez MD [address] [place] [id number] Closed fracture of twelfth thoracic vertebra, unspecified fracture morphology, initial encounter ([facility])* Allergies No known active allergiesdocumented as of this encounter (statuses as of 08/02/2023) Medications Medication Sig Dispensed Refills Start Date [...] goal of less than 7.0% ([facility]) Inject 20 Units under the skin daily [...] twelfth thoracic vertebra, initial encounter ([facility]) Take 1 Tablet by mouth in the morning and 1 Tablet in the evening. 30 Tablet 1 07/12/2023 Active oxyCODONE HCl 5 MG Oral Tablet (Oxy IR)Indications:Othe r closed fracture of twelfth thoracic vertebra, initial encounter ([facility]) Take 1 Tablet by mouth [...] as of this encounter (statuses as of 08/02/2023) Active Problems Problem Noted Date Closed T12 [...] as of this encounter (statuses as of 08/02/2023) Resolved Problems Problem Noted Date Resolved Date [...] as of this encounter (statuses as of 08/02/2023) Immunizations Name Administration Dates Next Due COVID-19 mRNA, LNP-s, No Pre serve, 2-Dose Series (Needbox AS) 03/08/2021,02/15/2021 HepA Inact/HepB Recomb>=18yrs old 12/04/2019,04/2019,05/20/2019 11/19/2019 PPD 06/18/2017, 3,01/09/2012,06/2011 Pneumococcal Conjugate Vacc, 13 Valent (Prevnar) 05/01/2017 Pneumococcal Polysaccharide PPV23 (Pneumovax) 08/28/2022,10/25/2015,07/14/2012 Season Influenza, Quad, PF, Adjuvanted, 65+ Yrs, IM (FLUAD) 10/07/2020(Deferred: Patient Refused - pt says he already had his shot last month at [facility] Handy Lyons and Mckinley Cobian made [...] Sign Reading Time Taken Comments Blood Pressure - - Pulse - - Temperature - - Respiratory Rate - - Oxygen Saturation - - Inhaled Oxygen Concentration - - Weight 81.6 kg (179 lb 14.4 oz) 08/02/2023 7:45 AM EDT Height 171 cm (5' 7.32") 08/02/2023 7:45 AM EDT Body Mass Index 27.91 08/02/2023 7:45 AM EDT documented in this [...] as of this encounter Progress Notes * Tasha La PA-C - 08/02/2023 8:21 AM EDT [facility] History and Physical Examination Name: Luis Hale Date: 08/02/2023 Time: 8:21 AM HPI: Luis Hale is a 73 year old male who presents to clinic today with son for evaluation of V50oscuid fracture. Patient reports he fell 6 weeks ago and had been [facility] Patient has recently seen by Dr. Lockhart at [facility] and was initially scheduled for surgery this past Saturday. However, they recommended that he come to [facility] instead. Patient endorses severe 10/10 pain when standing or sitting up. This completely goes away when lying flat. Of note, patient has a history of liver cell carcinoma and prostate cancer. He has had 25 days of radiation. This has caused bowel irritation and has a history of bloody stools. Patient takes Tylenol, baclofen and Oxy IR as needed. He did take one this morning in order to come to the appointment today. Patient denies radiculopathy. No numbness in bilateral lower extremities. He does have some paresthesias if he is in a certain position to his anterior thighs. He denies bladder issues. He is unable to make it to the bathroom for bowel movements at times secondary to his baclofen andlactulose. This occurred prior to his T12 chance fracture 6 weeks ago. He uses a rolling walker to get around the house. He is able to stand for about 10 minutes before he has to lay down. PAST MEDICAL HISTORY: Past Medical History: Diagnosis Date Acquired thrombocytopenia (HCC) 09/05/2017 Allergic rhinitis Anemia Anxiety and depression Aortic valve sclerosis 02/01/2023 Benign neoplasm of colon 04/16/2013 COLONOSCOPY FLEXIBLE PROXIMAL DIAGNOSTIC performed by Salvador Lopez MD at ENDOSCOPY [facility], adenomatous polyps repeat colonoscopy in 3 [...] cancer (HCC) 03/02/2021 Pulmonary hypertension (HCC) 02/01/2023 Liver disease Patient Active Problem List Diagnosis Code Allergic [...] J98.4 Closed T12 spinal fracture (HCC) S22.089A PAST SURGICAL HISTORY: Past Surgical History: Procedure Laterality Date CATARACT SURGERY,COMPLEX Right 04/02/2023 EXTRACAPSULAR CATARACT REMOVAL COMPLEX WITH IOL performed by Cody Gonzalez DO at OR [facility] CATARACT SURGERY,COMPLEX Left 04/23/2023 LEFT EXTRACAPSULAR CATARACT REMOVAL COMPLEX WITH IOL performed by Cody Gonzalez DO at [facility] COLONOSCOPY 08/27/2005 [place]/hemorrhoids non internal COLONOSCOPY, DIAGNOSTIC (RECTUM) 04/16/2013 COLONOSCOPY FLEXIBLE PROXIMAL DIAGNOSTIC performed by Salvador Lopez MD at [facility]OSCOPY [facility], adenomatous polyps repeat colonoscopy in 3 years COLONOSCOPY, DIAGNOSTIC (RECTUM) 05/03/2016 adenomatous polyps, diverticulosis, repeat 5 yrs/COLONOSCOPY FLEXIBLE PROXIMAL DIAGNOSTIC performedby Salvador Lopez MD at ENDOSCOPY [facility] COLONOSCOPY, DIAGNOSTIC (RECTUM) 07/19/2020 adenomatous & hyperplastic polyps, diverticulosis, repeat 3 yrs / [facility] COLONOSCOPY, DIAGNOSTIC (RECTUM) 11/30/2021 mild XRT proctitis, diverticulosis / COLONOSCOPY FLEXIBLE PROXIMAL DIAGNOSTIC performed by Barbara March DO at ENDOSCOPY [facility] COLONOSCOPY, DIAGNOSTIC (RECTUM) 02/01/2022 Mild XRT proctitis / COLONOSCOPY FLEXIBLE PROXIMAL DIAGNOSTIC performed by Barbara March DO at ENDOSCOPY [facility] COLONOSCOPY, DIAGNOSTIC (RECTUM) N/A 11/07/2022 poor prep/diverticulosis sigmoid colon/rectal angioectasias consistent with radiation proctopathy/Colonoscopy/[place] CT ABDOMEN W IV AND W ORAL CONTRAST 01/10/2010 EGD, FLEXIBLE, DIAGNOSTIC 07/22/2014 GE varices oozing blood, gastric polyp/ESOPHAGOGASTRODUODENOSCOPY (EGD), FLEXIBLE, TRANSORAL, DIAGNOSTIC performed by Juaquin Arrington MD at ENDOSCOPY [facility] EGD, FLEXIBLE, DIAGNOSTIC 07/23/2014 ESOPHAGOGASTRODUODENOSCOPY (EGD), FLEXIBLE, TRANSORAL, DIAGNOSTIC performed by Sophie Merino MD at [facility] EGD, FLEXIBLE, DIAGNOSTIC 06/02/2019 eso & gastric varices, gastric polyps/ESOPHAGOGASTRODUODENOSCOPY (EGD), FLEXIBLE, TRANSORAL, DIAGNOSTIC performed by Salvador Lopez MD at ENDOSCOPY [facility] EGD, FLEXIBLE, DIAGNOSTIC 03/25/2020 portal hypertensive gastropathy, esophageal varices / INPT [facility] EGD, FLEXIBLE, DIAGNOSTIC 07/19/2020 eso varices, portal hypertensive gastropathy, repeat 3 mo / [facility] EGD, FLEXIBLE, DIAGNOSTIC 10/25/2020 Portal hypertensive gastropathy, eso varices / [facility] EGD, FLEXIBLE, DIAGNOSTIC 08/202222 Grade I esophageal varices / [facility] EGD, FLEXIBLE, DIAGNOSTIC N/A 09/11/2022 grade II esophageal varices/gastric antral vascular ectasia, treated with APC/repeat 3 months/EGD/[place] EGD, FLEXIBLE, DIAGNOSTIC N/A 11/07/2022 grade III esophageal varices, banded/gastric antral vascular ectasia/repeat 2 months/EGD/[place] EGD, FLEXIBLE, DIAGNOSTIC N/A 02/01/2023 [facility]< egd. / single G2 varix, banded and varices eradicated / no specimens collected / egd in 1 to 2 months / IR CANCER THERASPHERE EMBOLIZATION 03/28/2022 IR EMBOLIZATION Left 04/18/2021 IMAGING SUPERVISION & INTERPRETATION TRANSCATHETER THERAPY, EMBOLIZATION performed by Kevin Lim DO at OR [facility] IR EMBOLIZATION ARTERIAL NON HEMMORHAGE Left 02/21/2022 EMBOLIZATION ARTERIAL; SUPERVISION & INTERPRETATION performed by Kevin Lim DO at OR [facility] IR EMBOLIZATION ARTERIAL NON HEMMORHAGE Left 06/05/2022 EMBOLIZATION ARTERIAL; SUPERVISION & INTERPRETATION performed by Kevin Lim DO at OR [facility] IR VENOUS TIPS 10/07/2020 REMOVAL OF TONSILS, UNDER AGE 12 age 6-7 Tonsils Removal,<12 Y/O SIGMOIDOSCOPY, DIAGNOSTIC 04/12/2022 radiation proctitis, diverticulosis / [facility] TIPS, REVISION N/A 01/24/2021 REVISION TRANSVENOUS INTRAHEPATIC PORTOSYSTEMIC SHUNT performed by Kevin Lim DO at OR [facility] TIPS, REVISION Right 10/19/2022 REVISION TRANSVENOUS INTRAHEPATIC PORTOSYSTEMIC SHUNT performed by Howie Valdovinos MD at OR [facility] TIPS, REVISION Right 02/20/2023 REVISION TRANSVENOUS INTRAHEPATIC PORTOSYSTEMIC SHUNT performed by Kevin Lim DO at OR [facility] FAMILY HISTORY: Family History Problem Relation Age of Onset Lung cancer Mother smoker Cancer Father colon, at 63 Musculo-skeletal Disorder Father aspvd in father and brothers Psoriasis Father Alcohol and Other Disorders Associated Father Other (Other) Father denies any family history of skin diseases or skin cancer No Known Problems Sister Cancer Brother pancreatic Alcohol and Other Disorders Associated Brother Heart disease Brother Other (Other) Brother Agent [place] exposure Cancer Grandmother (Paternal) unkown, in 80s Neurological Disorder Daughter epilepsy No Known Problems Daughter Cervical Cancer Daughter Uterine cancer Daughter Thyroid cancer Daughter Diabetes Other Hypertension Other Heart Disorder Other Stroke Other SOCIAL HISTORY: 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 Tobacco Use Smoking status: Never Smokeless tobacco: Never Vaping Use Vaping Use: Never used Substance Use Topics Alcohol use: Not Currently Comment: 1971 Drug use: No HOME MEDICATIONS: Current Outpatient Medications Medication Sig Dispense Refill Tylenol 325 MG Oral Capsule (Acetaminophen) Take 650 mg by mouth every 8 hours as needed for Pain (fever). [facility] In Vitro Strip (Glucose Blood) Use to test blood sugars 3 times a day 300 Strip 5 BD Pen Needle Elizabeth 2nd Gen 32G X 4 MM USE DIRECTED TO ADMINISTER INSULIN AT DINNER DAILY Triamcinolone Acetonide 0.1 % External Cream (Aristocort) Apply to psoriatic lesions twice a day asneeded for 2-3 weeks 453.6 g 0 Pantoprazole Sodium 40 MG Oral Tablet Delayed Release (Protonix) Take 1 Tablet by mouth in the morning and 1 Tablet in the evening. 60 Tablet 5 Finasteride 5 MG Oral Tablet (Proscar) Take 1 Tablet by mouth in the morning. 90 Tablet 3 rifAXIMin 550 MG Oral Tablet (Xifaxan) Take 1 Tablet by mouth in the morning and 1 Tablet before bedtime. 180 Tablet 5 Lactulose 10 GM/15ML Oral Solution (Constulose) Take 15 mL by mouth in the morning and 15 mL beforebedtime. 2700 mL 6 Mirtazapine 30 MG Oral Tablet (Remeron) Take 1 Tablet by mouth at bedtime. (Patient not taking: Reported on 07/12/2023) 90 Tablet 1 Repaglinide 1 MG Oral Tablet Take 1 Tablet by mouth in the morning and 1 Tablet at noon and 1 Tablet in the evening. Take with meals. 15 minutes before each meal. (Patient not taking: Reported on 07/12/2023) 90 Tablet 5 Lactulose 10 GM Oral Packet (Kristalose) Take 1 Packet by mouth in the morning and 1 Packet before bedtime. 60 Packet 5 Multivitamin Men 50+ Oral Tablet Take by mouth. High Potency Iron 65 MG Oral Tablet Take by mouth. Zinc 50 MG Oral Capsule Take 1 Capsule by mouth in the morning. Probiotic Multi-Enzyme Oral Tablet Take by mouth. N-Acetyl Cysteine 600 MG Oral Tablet (Acetylcysteine (Nutrient)) Take by mouth. Citalopram Hydrobromide 10 MG Oral Tablet (CeleXA) Take 1 Tablet by mouth in the morning. 90 Tablet1 FreeStyle Wang 2 Sensor Use as directed. Every 14 days 2 Each 5 Zinc Acetate 50 MG Oral Capsule 50 mg. Multivitamin Adults Oral Tablet 1 Tablet. Probiotic (Lactobacillus) Oral Capsule 1 Capsule. Lantus SoloStar 100 UNIT/ML Subcutaneous Solution Pen-injector Inject 20 Units under the skin dailywith dinner. 15 mL 3 Ondansetron HCl 4 MG Oral Tablet Take 1 Tablet by mouth every 8 hours as needed for Nausea. (Patient not taking: Reported on 07/12/2023) 30 Tablet 0 Baclofen 5 MG Oral Tablet (Lioresal) Take 1 Tablet by mouth in the morning and 1 Tablet in the evening. 30 Tablet 1 oxyCODONE HCl 5 MG Oral Tablet (Oxy IR) Take 1 Tablet by mouth every 6 hours as needed for Pain, Severe. 28 Tablet 0 Furosemide 20 MG Oral Tablet (Lasix) Take 2 Tablets by mouth in the morning. 180 Tablet 3 Allopurinol 100 MG Oral Tablet (Zyloprim) Take 2 Tablets by mouth in the morning. 180 Tablet 2 Current Facility-Administered Medications Medication Dose Route Frequency Provider Last Rate Last Admin Albuterol Sulfate (Proventil) (2.5 MG/3ML) 0.083% inhalation solution 2.5 mg 2.5 mg Nebulizer PRN William Jennings PA-C Albuterol Sulfate (Proventil) (5 MG/ML) 0.5% *conc* inhalation solution 2.5 mg 2.5 mg Nebulizer PRBright Jennings PA-C 2.5 mg at 03/20/23 0913 ALLERGIES: Patient has no known allergies. ROS: At least one system documented with all others negative. PHYSICAL EXAMINATION: Most Recent Vital Signs: Ht 1.71 m (5' 7.32") | Wt 81.6 kg (179 lb 14.4 oz) | BMI 27.91 kg/m | BSA 1.97 m Constitutional: no acute distress HEENT: normal: normocephalic, atraumatic; no masses, tenderness, or adenopathy Eyes: sclera and conjunctiva normal Neck: supple, normal range of motion CV: RRR Respiratory: Normal breath sounds on room air Extremities: no clubbing, cyanosis, or edema, otherwise grossly normal, warm, and dry Skin: warm, dry, intact Neuro: alert, oriented to person, place, and time, Glascow Coma Score 15 Psych: normal mood and affect, judgement normal, memory normal Spine: midline nontender to palpation Right lumbar paraspinals tender to palpation 5/5 bilateral lower extremity strength throughout Negative straight leg raise bilaterally No clonus bilaterally IMAGING: Images personally reviewed with Dr. Pedraza. Patient has a T12 chance fracture noted on the CT scan.Lateral standing x-ray shows a T11-L1 curve of 41. He has a T11-L1 kyphosis of 30 when supine. He has significant compression of T12 when standing. IMPRESSION and PLAN: Luis Hale is a 73 year old male 1. T12 chance fracture 2. Liver cell carcinoma On transplant list 3. Prostate cancer 4. Diabetes mellitus type [address] Vazquez discussed findings with patient and son. He does have a significant history of liver cell carcinoma and is currently on the transplant list. Thoroughly discussed the T12 chance fracture that he sustained 6 weeks ago. At this time Dr. Vazquez recommends continuing a [place] or rodriguez brace instead of the TLSO that he was initially given. Patient is to have an x-ray completed in 3 weeks. He will call once this is completed and we will call with results. We will plan to see the patient for an in person encounter for a three-month visit from the date of fracture. Secondary to the patient'scomorbidities, we would like to avoid surgery if possible and manage this conservatively. Dr. Vazquez discussed red flags and they are to call with any change in signs or symptoms. Dr. Vazquez thoroughly discussed risks and benefits including the very high risk of bleeding due to his liver issues. Patient will need thoracolumbar xrays, standing ap and lateral and supine lateral. Tasha La PA-C 08/02/2023 documented in this encounter Plan of Treatment Upcoming Encounters Date Type Specialty Care Team Description 08/08/2023 Imaging Radiology 08/30/2023 Office Visit Gastroenterology Lamar Tatum CRNP [address] [facility] [place] [address] 09/13/2023 Office Visit Orthopedic Surgery Clayton Vazquez MD [address] [place], [place] [address]J[place] [id number] 09/30/2023 Office Visit Hematology Oncology [facility] [address] [facility] [place] [id number] 10/08/2023 Procedure Only Urology Frank Peraza MD [address] [place] [address] 10/11/2023 Office Visit Internal Medicine Joaquin Snider PA-C [address] [facility] [address] 06/11/2024 Office Visit Ophthalmology Cody Gonzalez DO [address] [place] [address] Pending Results Name Type Priority Associated Diagnoses Date /Time XR THORACOLUMBAR SPINE MIN 2 VIEWS Medical Imaging Routine Closed fracture of twelfth thoracic vertebra, unspecified fracture morphology, initial encounter (HCC) 08/02/2023 8:01 AM EDT XR THORACOLUMBAR SPINE MIN 2 VIEWS Medical Imaging Routine Closed fracture of twelfth thoracic vertebra, unspecified fracture morphology, initial encounter (HCC) 08/02/2023 8:12 AM EDT Scheduled Orders Name Type Priority Associated Diagnoses Orde r Schedule XR THORACOLUMBAR SPINE MIN 2 VIEWS Medical Imaging Routine Closed fracture of twelfth thoracic vertebra, unspecified fracture morphology, initial encounter (HCC) Ordered: 08/02/2023 Health Maintenance Due Date Last Done Comments [...] Additional history exists CKD PHOS USE SMARTSET 77747 01/28/202401/03, 07/26/2022, 12/05/2021, Additional history exists DIABETES-FOOT EXAM 03/06/2024 03/06/2023, 0 01/03/2022, 03/02/2021, Additional history exists Albumin/Creatinine Ratio 07/12/2024 023, 10/01/2022, 09/11/2021, Additional history exists CKD HGB USE SMARTSET 99404 07/24/202407/24, 07/12/2023, 07/12/2023, Additional history exists COLONOSCOPY-EVERY [...] this encounter Medical Devices Implanted Type Area Academic Counselor Device Identifier Shelf Expiration Date Model / Serial / Lot Clareon Iol Aspheric Hydrophobic Acrylic Iol Implanted:Qty: 1 on 04/23/2023 by Cody Gonzalez DO at OR [facility] Lens Left: Eye 11/12/2025 [id number] / [id number] / Viatorr Tips Endoprosthesis 8-10 Mm X 8cm / 2cm Implanted:Qty: 1 on 10/07/2020 by Go Alvarado MD at [facility] Right: Abdomen 03/03/2023 [id number] / / [id number] Description:Viatorr TIPS End oprosthesis 8-10 mm x 8cm / 2cm, Manufactored by [employer] Syr Pf 2ml Embospheres 100-300 - [id number] Implanted:Qty: 1 on 04/18/2021 by Kevin Lim DO at OR [facility] Left: Abdomen [employer] [id number] 11/25/2023 [id number] / / [id number] Syr Pf 2ml Embospheres 100-300 - [id number] Implanted:Qty: 1 on 03/28/[address] [facility] [employer] [id number] 08/31/2024 S220GH / / [id number] Clareon Iol Aspheric Hydrophobic Acrylic Iol Implanted:Qty: 1 on 04/02/2023 by Cody Gonzalez DO at OR [facility] Right: Eye JAZMIN 11/12/2025 [id number] / [id number] / documented as of this encounter Visit Diagnoses Diagnosis Closed fracture of twelfth thoracic vertebra, unspecified fracture morphology, initial encounter ([facility])- Primary documented in this encounter Advance Directives Documents on File Type Date Recorded Patient Personalization Specialist Expl anation Advance Directives and Living Will 12/11/2022 ADVANCE DIRECTIVE / LIVING WILL LIVING WILL Power of Lumber Sorter Machine 12/11/2022 POWER OF A TTORNEY Latest [...] the patient have Health Care Power of Lumber Sorter Machine? No Full Code 07/22/2014 9:56 PM 07/24/2014 8:18 PM This order reflects the patients wishes and were consensually agreed upon. Question Answer Comments Discussion of Advance Directives occurred with: Patient Does the patient have a Living Will? No Does the patient have Health Care Power of Lumber Sorter Machine? No Care Teams Cold Rolling Coordinator Relationship Specialty Start Date End Date Francisco Cisse MD [address] [place] [id number] PCP - General Internal Medicine 09/04/21 documented as of this encounter
--- OUTSIDE RECORDS SUMMARY | 2023-11-26 12:40 | External Medical Summary | Summary of Care ---
Author Name Unknown Organization [facility] Address [address] [facility] [place] [address] Phone [phone] Care Team Providers Care Package Maker Name Role Phone Francisco Cisse MD Primary Care Provider + Encounter Details Date Type Department Care Team Description 08/02/2023 Patient Reported Data Patient Survey Ortho OBERD Allergies No known active allergiesdocumented as of [...] goal of less than 7.0% ([facility]) Use to test blood sugars 3 times [...] fracture of twelfth thoracic vertebra, initial encounter ([facility]) Take 1 Tablet by mouth in the morning and 1 Tablet in the evening. 30 Tablet 1 07/12/2023 Active oxyCODONE HCl 5 MG Oral Tablet (Oxy IR)Indications:Othe r closed fracture of twelfth thoracic vertebra, initial encounter ([facility]) Take 1 Tablet by mouth every 6 [...] mRNA, LNP-s, No Pre serve, 2-Dose Series ([employer]) 03/08/2021,02/15/2021 HepA Inact/HepB Recomb>=18yrs old 12/04/2019,04/2019,05/20/2019 11/19/2019 [...] Tatum CRNP [address] [place] [id number] 09/30/2023 [facility] [address] [facility] [address] [facility]/08[facility]2023 Procedure Only Urology Frank Peraza MD [address] [place] [address] [place] [address] 10/11/2023 Office Visit Internal Medicine Joaquin Snider PA-C 200 [facility] [place] [address] 06/11/2024 Office Visit Ophthalmology Cody Gonzalez DO [address] [place] [address] Health Maintenance Due Date Last Done [...] Additional history exists CKD PHOS USE SMARTSET 35518 01/28/202401/03, 07/26/2022, 12/05/2021, Additional history exists DIABETES-FOOT EXAM 03/06/2024 03/06/2023, 0 01/03/2022, 03/02/2021, Additional history exists Albumin/Creatinine Ratio 07/12/2024 023, 10/01/2022, 09/11/2021, Additional history exists CKD HGB USE SMARTSET 49089 07/24/202407/24, 07/12/2023, 07/12/2023, Additional history exists COLONOSCOPY-EVERY [...] this encounter Medical Devices Implanted Type Area Anger Control Counselor Device Identifier Shelf Expiration Date Model / Serial / Lot Clareon Iol Aspheric Hydrophobic Acrylic Iol Implanted:Qty: 1 on 04/23/2023 by Cody Gonzalez, at OR [facility] Lens Left: Eye 11/12/2025 CNA0T0 / [id number] / Viatorr Tips Endoprosthesis 8-10 Mm X 8cm / 2cm Implanted:Qty: 1 on 10/07/2020 by Go Alvarado MD at [facility] Right: Abdomen 03/03/2023 [id number] / / [id number] Description:Viatorr TIPS End oprosthesis 8-10 mm x 8cm / 2cm, Manufactored by [employer] Syr Pf 2ml Embospheres 100-300 - [id number] Implanted:Qty: 1 on 04/18/2021 by Kevin Lim DO at OR [facility] Left: Abdomen [employer] [id number] 11/25/2023 S220GH / / [id number] Syr Pf 2ml Embospheres 100-300 - [id number] Implanted:Qty: 1 on 03/28/2022 at [facility] [employer] [id number] 08/31/2024 S220GH / / [id number] Clareon Iol Aspheric Hydrophobic Acrylic Iol Implanted:Qty: 1 on 04/02/2023 by Cody Gonzalez, at [facility] Right: Eye JAZMIN 11/12/2025 CNA0T0 / [id number] / documented as of this encounter Advance Directives Documents on File Type Date Recorded Patient Templer Head Expl anation Advance Directives and Living Will 12/11/2022 ADVANCE DIRECTIVE / LIVING WILL LIVING WILL Power of Aircraft Motor Mechanic 12/11/2022 POWER OF A TTORNEY Latest [...] the patient have Health Care Power of Aircraft Motor Mechanic? No Full Code 07/22/2014 9:56 PM 07/24/2014 8:18 PM This order reflects the patients wishes and were consensually agreed upon. Question Answer Comments Discussion of Advance Directives occurred with: Patient Does the patient have a Living Will? No Does the patient have Health Care Power of Aircraft Motor Mechanic? No Care Teams Package Maker Relationship Specialty Start Date End Date Francisco Cisse MD [address] [place] [id number] PCP - General Internal Medicine 09/04/21 documented as of this encounter
--- OUTSIDE RECORDS SUMMARY | 2023-11-26 12:40 | External Medical Summary | Summary of Care ---
Author Name Unknown Organization [facility] Address [address] [place] [address] Phone [phone] Care Team Providers Care Manager Shop Name Role Phone Francisco Cisse MD Primary Care Provider + Encounter Details Date Type Department Care Team Description 08/02/2023 Hospital Encounter Radiology, [place] [address] [place] [address] Arrived Allergies No known active allergiesdocumented as of [...] of less than 7.0% ([facility]) Use to test blood sugars 3 [...] thoracic vertebra, initial encounter ([facility]) Take 1 Tablet by mouth in the morning and 1 Tablet in the evening. 30 Tablet 1 07/12/2023 Active oxyCODONE HCl 5 MG Oral Tablet (Oxy IR)Indications:Othe r closed fracture of twelfth thoracic vertebra, initial encounter ([facility]) Take 1 Tablet by mouth every [...] mRNA, LNP-s, No Pre serve, 2-Dose Series ([employer]) 03/08/2021,02/15/2021 HepA Inact/HepB Recomb>=18yrs old 12/04/2019,04/2019,05/20/2019 11/19/2019 PPD 06/18/2017, 3,01/09/2012,06/2011 Pneumococcal Conjugate Vacc, 13 Valent (Prevnar) 05/01/2017 Pneumococcal Polysaccharide PPV23 (Pneumovax) 08/28/2022,10/25/2015,07/14/2012 Season Influenza, Quad, PF, Adjuvanted, 65+ Yrs, IM (FLUAD) 10/07/2020(Deferred: Patient Refused - pt says he already had his shot last month at [facility] and Mckinley Cobian [...] Tatum CRNP [address] [place] [address] 09/13/2023 Office Visit Orthopedic Surgery Clayton Vazquez MD [address] [place] [address] 09/30/2023 Office Visit [facility]cology [facility] [address] 10/08/2023 Procedure Only Urology Frank Peraza MD [address] [place] [address] [place] [address] 10/11/2023 Office Visit Internal Medicine Joaquin Snider PA-C [address] [facility] [place] [address] 06/11/2024 Office Visit Ophthalmology Cody Gonzalez DO [address] [place] [address] Pending Results Name Type Priority Associated Diagnoses Date /Time XR THORACOLUMBAR SPINE MIN 2 VIEWS Medical Imaging Routine Closed fracture of twelfth thoracic vertebra, unspecified fracture morphology, initial encounter ([facility]) 08/02/2023 8:12 AM EDT Health Maintenance Due Date Last Done Comments [...] Additional history exists CKD PHOS USE SMARTSET 86718 01/28/202401/03, 07/26/2022, 12/05/2021, Additional history exists DIABETES-FOOT EXAM 03/06/2024 03/06/2023, 0 01/03/2022, 03/02/2021, Additional history exists Albumin/Creatinine Ratio 07/12/2024 023, 10/01/2022, 09/11/2021, Additional history exists CKD HGB USE SMARTSET 30318 07/24/202407/24, 07/12/2023, 07/12/2023, Additional history exists COLONOSCOPY-EVERY [...] this encounter Medical Devices Implanted Type Area Assembled Wood Products Repairer Device Identifier Shelf Expiration Date Model / Serial / Lot Clareon Iol Aspheric Hydrophobic Acrylic Iol Implanted:Qty: 1 on 04/23/2023 by Cody Gonzalez DO at OR [facility] Lens Left: Eye 11/12/2025 CNA0T0 / [id number] / Viatorr Tips Endoprosthesis 8-10 Mm X 8cm / 2cm Implanted:Qty: 1 on 10/07/2020 by Go Alvarado MD at [facility] Right: Abdomen 03/03/2023 [id number] / / [id number] Description:Viatorr TIPS End oprosthesis 8-10 mm x 8cm / 2cm, Manufactored by [employer] Syr Pf 2ml Embospheres 100-300 - [id number] Implanted:Qty: 1 on 04/18/2021 by Kevin Lim DO at OR [facility] Left: Abdomen [employer] [id number] 11/25/2023 S220GH / / [id number] Syr Pf 2ml Embospheres 100-300 - [id number] Implanted:Qty: 1 on 03/28/2022 at [facility] [employer] [id number] 08/31/2024 S220GH / / [id number] -5 Clareon Iol Aspheric Hydrophobic Acrylic Iol Implanted:Qty: 1 on 04/02/2023 by Cody Gonzalez DO at OR [facility] Right: Eye JAZMIN 11/12/2025 CNA0T0 / [id number] / documented as of this encounter Advance Directives Documents on File Type Date Recorded Patient Estate Planning Attorney Expl anation Advance Directives and Living Will 12/11/2022 ADVANCE DIRECTIVE / LIVING WILL LIVING WILL Power of Costume Design Teacher 12/11/2022 POWER OF A TTORNEY Latest Code [...] the patient have Health Care Power of Costume Design Teacher? No Full Code 07/22/2014 9:56 PM 07/24/2014 8:18 PM This order reflects the patients wishes and were consensually agreed upon. Question Answer Comments Discussion of Advance Directives occurred with: Patient Does the patient have a Living Will? No Does the patient have Health Care Power of Costume Design Teacher? No Care Teams Manager Shop Relationship Specialty Start Date End Date Francisco Cisse MD [address] [place] [phone] PCP - General Internal Medicine 09/04/21 documented as of this encounter
--- OUTSIDE RECORDS SUMMARY | 2023-11-26 12:40 | External Medical Summary | Summary of Care ---
Author Name Unknown Organization [facility] Address [address] [place] [address] Phone [phone] Care Team Providers Care Hse Specialist Name Role Phone Francisco Cisse MD Primary Care Provider + Reason for Referral * Evaluate & Treat - Unlimited Visits (Within 3 days (urgent)) - Authorized Specialty Diagnoses / Procedures Referred By Contac t Referred To Contact Pharmacist / Pharmacy Diagnoses Closed T12 spinal fracture (HCC) Francisco Cisse MD [address] [place] [address] Referral ID Status Reason Start Date Expiration Date Visits Requested Visits Authorized [id number] Authorized Specialty Services Required 08/08/2023 99 99 Question Answer Referral Priority Within 3 days (urgent) Department: Primary Care Reason for Referral: Pain - r/t Potentially stable Chance fracture with delayed healing-Not a surgical candidate Pain Diagnosis: Back pain, Other Further Details of Diagnosis: Potentially stable Chance fracture with delayed healing-Not a surgical candidate. Pain Treatment Options: Opioids and/or Non-opioids Does patient have a signed KAI? This is required for patients on opioids No Has patient completed a Urine Drug Screen in the past 3 months? This is required for patients on opioids No Pain Treatment Goal: Med Optimization Comments Pharmacist Medication Therapy Management: Minimum frequency patient should be seen in person for medication management: as appropriate per clinical condition and patient status By my signature, I understand that my patient Luis Hale will have his medication therapy managed by the [facility] Medication Therapy Disease Management [facility] ([facility]) per established policies, procedures, and protocols. I also certify that this referral may serve as an initiation of service for the management of drug therapy in the above noted patient. [facility] providers will be responsible for scheduling patient visits, obtaining appropriate laboratory studies, and adjusting medication management therapy per patient's need, in addition to those roles spelled out in the clinic policy, procedures, and drug management protocols. I understand that the service provided by the [employer] is voluntary and have informed patient that they can refuse the service at their discretion. I am aware that the [facility] Clinic will provide me with a copy of the patient encounter via my Webcollage InmLED. I authorize the [employer] to carry out these activities on my behalf. I consider this program to be a necessary part of the patient's medical care. Francisco Cisse MD Reason for Visit * Reason Onset Date Comments case management 08/07/2023 Encounter Details Date Type Department Care Team Description 08/07/2023 Road Advisor Telephone General Internal Medicine [facility] [address] [place] [address] Michelle Nash, RN [address] [place] [address] case management Allergies No known active allergiesdocumented as of this encounter (statuses as of 08/08/2023) Medications Medication Sig Dispensed Refills Start Date End Date Status Tylenol 325 MG Oral Capsule (Acetaminophen) Take 650 mg by mouth every 8 hours as needed for Pain (fever). 0 Active OneTouch Verio In Vitro Strip (Glucose Blood)Indication s:Type 2 diabetes mellitus with hemoglobin A1c goal of less than 7.0% ([facility]) Use to test blood sugars 3 times a day 300 Strip 5 2 Active BD Pen Needle Elizabeth 2nd Gen 32G X 4 MM USE DIRECTED TO ADMINISTER INSULIN AT DINNER DAILY 0 2 Active Triamcinolone Acetonide 0.1 % External Cream (Aristocort) Apply to psoriatic lesions twice a day as needed for 2-3 weeks 453.6 g 0 2 Active Pantoprazole Sodium 40 MG Oral Tablet Delayed Release (Protonix)Indica tions:GAVE (gastric antral vascular ectasia) Take 1 Tablet by mouth in the morning and 1 Tablet in the evening. 60 Tablet 5 3 Active Finasteride 5 MG Oral Tablet (Proscar) Take 1 Tablet by mouth in the morning. 90 Tablet 3 3 Active rifAXIMin 550 MG Oral Tablet (Xifaxan) Take 1 Tablet by mouth in the morning and 1 Tablet before bedtime. 180 Tablet 5 3 Active Mirtazapine 30 MG Oral Tablet (Remeron)Indicat ions:Neoplastic (malignant) related fatigue,Depressi on due to physical illness Take 1 Tablet by mouth at bedtime. 90 Tablet 1 3 Active Repaglinide 1 MG Oral TabletIndication s:Type 2 diabetes mellitus with stage 3a chronic kidney disease, without long-term current use of insulin (HCC) Take 1 Tablet by mouth in the morning and 1 Tablet at noon and 1 Tablet in the evening. Take with meals. 15 minutes before each meal. 90 Tablet 5 3 Active Additional Information Patient not taking.Reported on 07/12/2023 Lactulose 10 GM Oral Packet (Kristalose)Camila cations:Cirrhosi s of liver without ascites, unspecified hepatic cirrhosis [...] Active Citalopram Hydrobromide 10 MG Oral Tablet (CeleXA)Indicati ons:Anxiety state Take 1 Tablet by mouth in the morning. 90 Tablet 1 3 Active FreeStyle Wang 2 Sensor Use as directed. Every 14 days 2 Each 5 3 Active Probiotic (Lactobacillus) Oral Capsule 1 Capsule. 0 3 Active Baclofen 5 MG Oral Tablet (Lioresal)Indica tions:Other closed fracture of twelfth thoracic vertebra, initial encounter (HCC) Take 1 Tablet by mouth in the morning and 1 Tablet in the evening. 30 Tablet 1 3 Active oxyCODONE HCl 5 MG Oral Tablet (Oxy IR)Indications:O ther closed fracture of twelfth thoracic vertebra, initial encounter (HCC) Take 1 Tablet by mouth every 6 hours as needed for Pain, Severe. 28 Tablet 0 3 Active Furosemide 20 MG Oral Tablet (Lasix)Indicatio ns:Cirrhosis of liver with ascites, unspecified hepatic cirrhosis type (HCC) Take 2 Tablets by mouth in the morning. 180 Tablet 3 3 Active Allopurinol 100 MG Oral Tablet (Zyloprim)Indica tions:Gout of big toe Take 2 Tablets by mouth in the morning. 180 Tablet 2 3 Active Lantus 100 UNIT/ML Subcutaneous Solution Inject 22 Units under the skin every evening. With dinner 0 3 Active oxygen IN GAS Use 2 L/min(Oxygen) as directed at bedtime. 0 Active Lactulose 10 GM/15ML Oral Solution (Constulose)Camila cations:Other cirrhosis of liver (HCC) Take 15 mL by mouth in the morning and 15 mL before bedtime. 2700 mL 6 3 08/07/20 23 Discontinued(Med ication/Dose Changed) Probiotic Multi-Enzyme Oral Tablet Take by mouth. 0 08/07/20 23 Discontinued(Med ication List Clean Up) Zinc Acetate 50 MG Oral Capsule 50 mg. 0 3 08/07/20 23 Discontinued(Med ication List Clean Up) Multivitamin Adults Oral Tablet 1 Tablet. 0 3 08/07/20 23 Discontinued(Med ication List Clean Up) Lantus SoloStar 100 UNIT/ML Subcutaneous Solution Pen-injectorIndi cations:Type 2 diabetes mellitus with hemoglobin A1c goal of less than 7.0% ([facility]) Inject 20 Units under the skin daily with dinner. 15 mL 3 3 08/07/20 23 Discontinued Ondansetron HCl 4 MG Oral TabletIndication s:Nausea without vomiting,Liver cell carcinoma (HCC),GAVE (gastric antral [...] as of this encounter (statuses as of 08/08/2023) Active Problems Problem Noted Date Closed T12 [...] as of this encounter (statuses as of 08/08/2023) Resolved Problems Problem Noted Date Resolved Date [...] as of this encounter (statuses as of 08/08/2023) Immunizations Name Administration Dates Next Due COVID-19 mRNA, LNP-s, No Pre serve, 2-Dose Series (Pfizer) 03/08/2021,02/15/2021 HepA Inact/HepB Recomb>=18yrs old 12/04/2019,04/2019,05/20/2019 11/19/2019 PPD 06/18/2017, 3,01/09/2012,06/2011 Pneumococcal Conjugate Vacc, 13 Valent (Prevnar) 05/01/2017 Pneumococcal Polysaccharide PPV23 (Pneumovax) 08/28/2022,10/25/2015,07/14/2012 Season Influenza, Quad, PF, Adjuvanted, 65+ Yrs, IM (FLUAD) 10/07/2020(Deferred: Patient Refused - pt says he already had his shot last month at [facility] Handy Lyons and Mckinley Cobian made aware) [...] Encounter - Michelle Nash RN - 08/08/2023 12:18 PM EDT Spoke with patient and he is looking for med management. New referral pended for review. Message sent to orthopedics regarding repeat xray orders. Dr. Cisse - Please review and sign if agreeable. Thank you! * Telephone Encounter - Francisco Cisse MD - 08/07/2023 7:44 PM EDT To confirm - did he want to see pain medicine for injection or see [facility] for pain management with med? I would follow up with ortho regarding x- rays to see what they want to order * Telephone Encounter - Michelle Nash RN - 08/07/2023 11:[address] Cisse - Please review. Patient requesting referral to pain management at . Referral pended. Also reports he will need repeat xrays. Per Ortho on 08/02 - "Patient will need thoracolumbar xrays, standing ap and lateral and supine lateral". No orders have been placed. Please advise. Thank you! * Telephone Encounter - Michelle Nash RN - 08/07/2023 10:[address] Advisor Progress Note: Date: 08/07/23 Assigned Patient Tier: 2 Connected with patient via telephone. Verified patient name/. Advised patient that call is beingrecorded for quality and training purposes. Assessment: Pt. noted the following: Reports he is doing "okay" today. Seen by orthopedics in [place] on 08/02-not a surgical candidate due to "extreme high risk patient"-Given new back brace which is metal and not flexible-advised to wear during ambulation. He finds this brace "very confining". Advised to repeat spinal xray in 3 weeksand follow up again in 6 weeks. Denies any numbness/tingling of LE, no bowel/bladder changes reported, no new falls-using his walker with ambulation. Pain is 2 out of 10 today-feels he is "living on Tylenol and Baclofen". Does not like to use the oxycodone due to constipation side effect. Needs referral sent to Pain Management-referral pended for PCP approval. Medications were reviewed at 08/02 appointment-patient requesting update to Lantus and add oxygen-CM completed as requested. Reviewed red flags. Advised to report any worsening symptoms toPCP. Will plan to follow up within one week. Did you receive an alert for an annual wellness visit? No Is this call for a hospital, half-way or rehab facility discharge to home? No Medication Reconciliation: Medication Reconciliation completed: yes and denies any changes since appointment on 08/02/23. Review of Current goals: Discussed the following patient-centered CM goals with the patient during this discussion: -Pain: Patient will have pain well managed -Status: At Risk Not a candidate for surgery due to extreme high risk. Rating pain at out of 10 today. Needs referral to pain management. -SAFETY: Prevent falls or injuries -Status: At Risk Not a candidate for surgery. Current diagnosis of vertebral fx. Wears back brace. Denies any new falls. -Prevention: Prevent admission/readmission -Status: At Risk Not a candidate for surgery. Ongoing pain r/t vertebral fx. Taking medications as prescribed. Attending appointments. COPD Patient: No CHF Patient: NO CM Plan: Reviewed 3 Red Flags with patient. Advised to call CM with any of the following: Red Flag 1: worsening pain, Red Flag 2: loss of bowel/bladder function, or Red Flag 3: numbness/tingling of LE and Road Advisor will follow-up with PCP regarding referral to pain management. Remote Patient Monitoring: [facility] Plan for Future Contacts: Plan to follow up within 1 week to check progress on the following goals/needs as above. Planned contacts from the following parties will occur this week: radiology tomorrow as additional contacts per workflow. Advancement/Closure Plan: Keep patient at current Tier with reassessment per workflow. Patient provided CM contact information and encouraged to call with any changes in condition. SNP Member? No PCP Notified of enrollment in CM/HM program: Yes Is Provider in agreement with POC? Yes Michelle Nash RN Outpatient Case Management documented in this encounter Plan of Treatment Upcoming Encounters Date Type Specialty Care Team Description 08/30/2023 Office Visit Gastroenterology Lamar Tatum CRNP [address] [place] [address] 09/13/2023 Office Visit [place] [address] [place] [address] [place] [address] 09/30/2023 Office Visit Hematology Oncology Jennifer Ramires MD [address] [facility] [address] 10/08/2023 Procedure Only Urology Frank Peraza MD [address] [place] [address] 10/11/2023 Office Visit Internal Medicine Joaquin Snider PA-C [address] [place] [address] 06/11/2024 Office Visit Ophthalmology Cody Gonzalez DO [address] [place] [address] Scheduled Referrals Name Type Priority Associated Diagnoses Orde r Schedule PHARMACIST MEDS THERAPY MGMT REFERRAL OP Referral Within 3 days (urgent) Closed T12 spinal fracture (HCC) Ordered: 08/08/2023 Health Maintenance Due Date Last Done Comments [...] Additional history exists CKD PHOS USE SMARTSET 44087 01/28/202401/03, 07/26/2022, 12/05/2021, Additional history exists Diabetic Foot Exam 03/06/2024 03/06/2023, 0 01/03/2022, 03/02/2021, Additional history exists Albumin/Creatinine Ratio 07/12/2024 023, 10/01/2022, 09/11/2021, Additional history exists CKD HGB USE SMARTSET 29563 07/24/202407/24, 07/12/2023, 07/12/2023, Additional history exists COLONOSCOPY-EVERY [...] this encounter Medical Devices Implanted Type Area Fundraising Director Device Identifier Shelf Expiration Date Model / Serial / Lot Mary [place] Iol Aspheric Hydrophobic Acrylic Iol Implanted:Qty: 1 on 04/23/2023 by Cody Gonzalez DO at [facility] Lens Left: Eye 11/12/2025 CNA0T0 / [id number] / Viatorr Tips Endoprosthesis 8-10 Mm X 8cm / 2cm Implanted:Qty: 1 on 10/07/2020 by Go Alvarado MD at [facility] Right: Abdomen 03/03/2023 [id number] / / [id number] Description:Viatorr TIPS End oprosthesis 8-10 mm x 8cm / 2cm, Manufactored by [employer] Syr Pf 2ml Embospheres 100-300 - [id number] Implanted:Qty: 1 on 04/18/2021 by Kevin Lim DO at OR [facility] Left: Abdomen [employer] [id number] 11/25/2023 S220GH / / [id number] -[id number] Syr Pf 2ml Embospheres 100-300 - [id number] Implanted:Qty: 1 on 03/28/2022 at [facility] [employer] [id number] 08/31/2024 S220GH / / [id number] -5 Clareon Iol Aspheric Hydrophobic Acrylic Iol Implanted:Qty: 1 on 04/02/2023 by Cody Gonzalez DO at OR [facility] Right: Eye JAZMIN 11/12/2025 CNA0T0 / [id number] / documented as of this encounter Visit Diagnoses Diagnosis Closed T12 spinal fracture (HCC)- Primary Closed fracture of dorsal (thoracic) vertebra without mention of spinal cord injury documented in this encounter Advance Directives Documents on File Type Date Recorded Patient Electroplater Helper Expl anation Advance Directives and Living Will 12/11/2022 ADVANCE DIRECTIVE / LIVING WILL LIVING WILL Power of Senior Naval Parachutist 12/11/2022 POWER OF A TTORNEY Latest Code [...] the patient have Health Care Power of Senior Naval Parachutist? No Full Code 07/22/2014 9:56 PM 07/24/2014 8:18 PM This order reflects the patients wishes and were consensually agreed upon. Question Answer Comments Discussion of Advance Directives occurred with: Patient Does the patient have a Living Will? No Does the patient have Health Care Power of Senior Naval Parachutist? No Care Teams Hse Specialist Relationship Specialty Start Date End Date Francisco Cisse MD [address] [place] [address] [id number] PCP - General Internal Medicine 09/04/21 documented as of this encounter
--- OUTSIDE RECORDS SUMMARY | 2023-11-26 12:40 | External Medical Summary | Summary of Care ---
Author Name Unknown Organization [facility] Address [address] [place] [address] Phone [phone] Care Team Providers Care Non Acoustic Operator Name Role Phone Francisco Cisse MD Primary Care Provider + Encounter Details Date Type Department Care Team Description 08/02/2023 Hospital Encounter Radiology, [place] [address] [place] [address] Arrived Allergies No known active [...] [facility]) Take 1 Tablet by mouth every 6 [...] mRNA, LNP-s, No Pre serve, 2-Dose Series (Loosecubes) 03/08/2021,02/15/2021 HepA Inact/HepB Recomb>=18yrs old 12/04/2019,04/2019,05/20/2019 11/19/2019 PPD 06/18/2017, 3,01/09/2012,06/2011 Pneumococcal Conjugate Vacc, 13 Valent (Prevnar) 05/01/2017 Pneumococcal Polysaccharide PPV23 (Pneumovax) 08/28/2022,10/25/2015,07/14/2012 Season Influenza, Quad, PF, Adjuvanted, 65+ Yrs, IM (FLUAD) 10/07/2020(Deferred: Patient Refused - pt says he already had his shot last month at [facility] Lyons and Mckinley Cobian [...] Tatum CRNP [address] [place] [address] 09/13/2023 Office Visit Orthopedic Surgery Clayton Vazquez MD [address] [place] [address] 09/30/2023 Office Visit [facility]ematology Oncology [facility] [address] [facility] [address] 10/08/2023 Procedure Only Urology Frank Peraza MD [address] [place] [address] 10/11/2023 Office Visit Internal Medicine Joaquin Snider PA-C [address] [facility] [place] [address] 06/11/2024 Office Visit Ophthalmology Cody Gonzalez DO [address] [place] [address] Pending Results Name Type Priority Associated Diagnoses Date /Time XR THORACOLUMBAR SPINE MIN 2 VIEWS Medical Imaging Routine Closed fracture of twelfth thoracic vertebra, unspecified fracture morphology, initial encounter ([facility]) 08/02/2023 8:01 AM EDT Health Maintenance Due Date Last [...] Additional history exists CKD PHOS USE SMARTSET 31693 01/28/202401/03, 07/26/2022, 12/05/2021, Additional history exists DIABETES-FOOT EXAM 03/06/2024 03/06/2023, 0 01/03/2022, 03/02/2021, Additional history exists Albumin/Creatinine Ratio 07/12/2024 023, 10/01/2022, 09/11/2021, Additional history exists CKD HGB USE SMARTSET 83710 07/24/202407/24, 07/12/2023, 07/12/2023, Additional history exists COLONOSCOPY-EVERY [...] this encounter Medical Devices Implanted Type Area Laborer Airport Maintenance Device Identifier Shelf Expiration Date Model / Serial / Lot Clareon Iol Aspheric Hydrophobic Acrylic Iol Implanted:Qty: 1 on 04/23/2023 by Cody Gonzalez DO at OR [facility] Lens Left: Eye 11/12/2025 CNA0T0 / [id number] / Viatorr Tips Endoprosthesis 8-10 Mm X 8cm / 2cm Implanted:Qty: 1 on 10/07/2020 by Go Alvarado MD at [facility] Right: Abdomen 03/03/2023 [id number] / / [id number] Description:Viatorr TIPS End oprosthesis 8-10 mm x 8cm / 2cm, Manufactored by [employer] Syr Pf 2ml Embospheres 100-300 - [id number] Implanted:Qty: 1 on 04/18/2021 by Kevin Lim DO at OR [facility] Left: Abdomen [employer] [id number] 11/25/2023 S220GH / / [id number] -[id number] Syr Pf 2ml Embospheres 100-300 - [id number] Implanted:Qty: 1 on 03/28/2022 at [facility] [employer] [id number] 08/31/2024 S220GH / / [id number] -5 Clareon Iol Aspheric Hydrophobic Acrylic Iol Implanted:Qty: 1 on 04/02/2023 by Cody Gonzalez DO at OR [facility] Right: Eye JAZMIN 11/12/2025 CNA0T0 / [id number] / documented as of this encounter Advance Directives Documents on File Type Date Recorded Patient Pumper Hand Expl anation Advance Directives and Living Will 12/11/2022 ADVANCE DIRECTIVE / LIVING WILL LIVING WILL Power of Diversified Crops Farmworker 12/11/2022 POWER OF A TTORNEY Latest Code [...] the patient have Health Care Power of Diversified Crops Farmworker? No Full Code 07/22/2014 9:56 PM 07/24/2014 8:18 PM This order reflects the patients wishes and were consensually agreed upon. Question Answer Comments Discussion of Advance Directives occurred with: Patient Does the patient have a Living Will? No Does the patient have Health Care Power of Diversified Crops Farmworker? No Care Teams Non Acoustic Operator Relationship Specialty Start Date End Date Francisco Cisse MD [address] [place] [id number] PCP - General Internal Medicine 09/04/21 documented as of this encounter
--- OUTSIDE RECORDS SUMMARY | 2023-11-26 12:40 | External Medical Summary | Summary of Care ---
Author Name Unknown Organization [facility] Address [address] [place] [address] Phone [phone] Care Team Providers Care Green Inspector Name Role Phone Francisco Cisse MD Primary Care Provider + Encounter Details Date Type Department Care Team Description 08/02/2023 Orders Only Orthotics, [place] [address], [place] [id number] [facility] Orthotics Fitter [address], [place] [id number] T12 vertebral fracture (HCC) [S22.089A (ICD-10-CM)]* Allergies No known active allergiesdocumented as of [...] goal of less than 7.0% ([facility]) Use to test blood sugars [...] twelfth thoracic vertebra, initial encounter ([facility]) Take 1 Tablet by mouth in the morning and 1 Tablet in the evening. 30 Tablet 1 07/12/2023 Active oxyCODONE HCl 5 MG Oral Tablet (Oxy IR)Indications:Othe r closed fracture of twelfth thoracic vertebra, initial encounter ([facility]) Take 1 Tablet by mouth [...] mRNA, LNP-s, No Pre serve, 2-Dose Series (Lollipuff) 03/08/2021,02/15/2021 HepA Inact/HepB Recomb>=18yrs old 12/04/2019,04/2019,05/20/2019 11/19/2019 PPD 06/18/2017, 3,01/09/2012,06/2011 Pneumococcal Conjugate Vacc, 13 Valent (Prevnar) 05/01/2017 Pneumococcal Polysaccharide PPV23 (Pneumovax) 08/28/2022,10/25/2015,07/14/2012 Season Influenza, Quad, PF, Adjuvanted, 65+ Yrs, IM (FLUAD) 10/07/2020(Deferred: Patient Refused - pt says he already had his shot last month at [facility] Handy Lyons and Mckinley Cobian made aware) [...] as of this encounter Progress Notes * CFO [place] - 08/02/2023 10:00 AM EDT Pt was fit and delivered a medium [place] brace secondary to a T12 chance fracture as requested by Tasha La PA-C. The orthosis was inspected for structural integrity and bending frame operator guidelines were followed. Donning, doffing, precautions, and wearing instructions were provided verbally and tod bentley bending frame operator information was given to the Pt. Patient was informed the brace they received is covered by insurance however there will be patient out of pocket responsibility based on their individual plan. The exact amount the out of pocket is not known at the time of delivery. Patient understands and is accepting of the brace. [place] [facility] [place] by: adult Nursing staff informed: CFO Ramirez 08/02/2023 10:01 AM documented in this encounter Plan of Treatment Upcoming Encounters Date Type Specialty Care Team Description 08/08/2023 Imaging Radiology 08/30/2023 Office Visit Gastroenterology Lamar Tatum CRNP [address] [place] [address] 09/13/2023 Office Visit Orthopedic Surgery Clayton Vazquez MD [address] [place] [address] 09/30/2023 Office Visit [facility]ematology [facility]cology [facility] [address] [facility] [address] 10/08/2023 Procedure Only Urology Frank Peraza MD [address] [place] [address] [place] [address] 10/11/2023 Office Visit Internal Medicine Joaquin Snider PA-C [address] [place] [address] 06/11/2024 Office Visit Ophthalmology Cody Gonzalez DO [address] [place] [address] Health Maintenance Due Date Last [...] Additional history exists CKD PHOS USE SMARTSET 13965 01/28/202401/03, 07/26/2022, 12/05/2021, Additional history exists DIABETES-FOOT EXAM 03/06/2024 03/06/2023, 0 01/03/2022, 03/02/2021, Additional history exists Albumin/Creatinine Ratio 07/12/2024 023, 10/01/2022, 09/11/2021, Additional history exists CKD HGB USE SMARTSET 13972 07/24/202407/24, 07/12/2023, 07/12/2023, Additional history exists COLONOSCOPY-EVERY [...] this encounter Medical Devices Implanted Type Area Supervisor Printing And Stamping Device Identifier Shelf Expiration Date Model / Serial / Lot Davideon Iol Aspheric Hydrophobic Acrylic Iol Implanted:Qty: 1 on 04/23/2023 by Cody Gonzalez DO at OR [facility] Lens Left: Eye 11/12/2025 CNA0T0 / [id number] / Viatorr Tips Endoprosthesis 8-10 Mm X 8cm / 2cm Implanted:Qty: 1 on 10/07/2020 by Go Alvarado MD at [facility] Right: Abdomen 03/03/2023 [id number] / / [id number] Description:Viatorr TIPS End oprosthesis 8-10 mm x 8cm / 2cm, Manufactored by [employer] Syr Pf 2ml Embospheres 100-300 - [id number] Implanted:Qty: 1 on 04/18/2021 by Kevin Lim DO at OR [facility] Left: Abdomen [employer] [id number] 11/25/2023 S220GH / / [id number] Syr Pf 2ml Embospheres 100-300 - [id number] Implanted:Qty: 1 on 03/28/2022 at [facility] [employer] [id number] 08/31/2024 S220GH / / [id number] -[id number] Clareon Iol Aspheric Hydrophobic Acrylic Iol Implanted:Qty: 1 on 04/02/2023 by Cody Gonzalez DO at OR [facility] Right: Eye JAZMIN 11/12/2025 CNA0T0 / [id number] / documented as of this encounter Visit Diagnoses Diagnosis T12 vertebral fracture (HCC) [S22.089A (ICD-10-CM)]- Primary Closed fracture of dorsal (thoracic) vertebra without mention of spinal cord injury documented in this encounter Advance Directives Documents on File Type Date Recorded Patient Grounding Engineer Expl anation Advance Directives and Living Will 12/11/2022 ADVANCE DIRECTIVE / LIVING WILL LIVING WILL Power of Industrial Locomotive Operator 12/11/2022 POWER OF A TTORNEY Latest [...] the patient have Health Care Power of Industrial Locomotive Operator? No Full Code 07/22/2014 9:56 PM 07/24/2014 8:18 PM This order reflects the patients wishes and were consensually agreed upon. Question Answer Comments Discussion of Advance Directives occurred with: Patient Does the patient have a Living Will? No Does the patient have Health Care Power of Industrial Locomotive Operator? No Care Teams Green Inspector Relationship Specialty Start Date End Date Francisco Cisse MD [address] [place] [address] PCP - General Internal Medicine 09/04/21 documented as of this encounter
--- OUTSIDE RECORDS SUMMARY | 2023-11-26 12:41 | External Medical Summary | Summary of Care ---
Author Name Unknown Organization [facility] Address [address] [facility] [place] [place] [address] Phone [phone] Care Team Providers Care Nuclear Plant Operator Name Role Phone Francisco Cisse MD Primary Care Provider + Encounter Details Date Type Department Care Team Description 06/14/2023 Hospital Encounter Radiology Film File [address] [place] [address] Allergies No known active allergiesdocumented as of this encounter (statuses as of 08/01/2023) Medications Medication Sig Dispensed Refills Start Date End Date Status Tylenol 325 MG Oral Capsule (Acetaminophen) Take 650 mg by mouth every 8 hours as needed for Pain (fever). 0 Active OneTouch Verio In Vitro Strip (Glucose Blood)Indications:T ype 2 diabetes mellitus with hemoglobin A1c goal of less than 7.0% ([facility]) Use to test blood sugars 3 [...] Additional Information Patient not taking.Reported on 07/12/2023 Hospital, Clinic, or Other Facility Administered Medication [...] as of this encounter (statuses as of 08/01/2023) Active Problems Problem Noted Date Closed T12 [...] as of this encounter (statuses as of 08/01/2023) Resolved Problems Problem Noted Date Resolved Date [...] as of this encounter (statuses as of 08/01/2023) Immunizations Name Administration Dates Next Due COVID-19 mRNA, LNP-s, No Pre serve, 2-Dose Series (Pfizer) 03/08/2021,02/15/2021 HepA Inact/HepB Recomb>=18yrs old 12/04/2019,04/2019,05/20/2019 11/19/2019 PPD 06/18/2017, 3,01/09/2012,06/2011 Pneumococcal Conjugate Vacc, 13 Valent (Prevnar) 05/01/2017 Pneumococcal Polysaccharide PPV23 (Pneumovax) 08/28/2022,10/25/2015,07/14/2012 Season Influenza, Quad, PF, Adjuvanted, 65+ Yrs, IM (FLUAD) 10/07/2020(Deferred: Patient Refused - pt says he already had his shot last month at [facility] Handy Lyons and Mckinley Cobian made aware) Seasonal Influenza Virus Vac cine, Unspecified Formulation 09/15/2021,09/01/2019,09/04/2017,08/03,09/13/2014,08/10/2013,10/07/20 12,09/03/2011 Seasonal Influenza, PF, 6 mo ns & Above, IM , (Flulaval) 09/04/2017 Seasonal Influenza, Quadriva lent Hd, 65+ Yrs 09/30/2020 Seasonal Influenza, Quadriva lent, No Preserve, IM 09/01/2019,08/27/2016,10/25/2015 Seasonal Influenza, Split, I IV3, With Preserve, Inj 09/13/2014,08/10/2013,10/07/2012,10/0 01/2011 Seasonal Influenza, Trivalen t, Adjuvanted, 65+ yrs [...] Encounters Date Type Specialty Care Team Description 08/02/2023 Office Visit Orthopedic Surgery Clayton Vazquez MD [address] [place] [address] 08/08/2023 Imaging Radiology 08/30/2023 Office Visit Gastroenterology Lamar Tatum CRNP [address] [place] [address] 09/30/2023 Office Visit Hematology Oncology Jennifer Ramires MD [address] [place] [address] 10/08/2023 Procedure Only Urology Frank Peraza MD [address] [facility] [address] [place] [address] 10/11/2023 Office Visit Internal Medicine Joaquin Snider PA-C [address] [place] [address] 06/11/2024 Office Visit Ophthalmology Cody Gonzalez DO [address] [facility] [place] [address] Health Maintenance Due Date Last [...] Additional history exists CKD PHOS USE SMARTSET 29717 01/28/202401/03, 07/26/2022, 12/05/2021, Additional history exists DIABETES-FOOT EXAM 03/06/2024 03/06/2023, 0 01/03/2022, 03/02/2021, Additional history exists Albumin/Creatinine Ratio 07/12/2024 023, 10/01/2022, 09/11/2021, Additional history exists CKD HGB USE SMARTSET 38601 07/24/202407/24, 07/12/2023, 07/12/2023, Additional history exists COLONOSCOPY-EVERY [...] this encounter Medical Devices Implanted Type Area Government Teacher Device Identifier Shelf Expiration Date Model / Serial / Lot Mary Annon Iol Aspheric Hydrophobic Acrylic Iol Implanted:Qty: 1 on 04/23/2023 by Cody Gonzalez DO at OR [facility] Lens Left: Eye 11/12/2025 CNA0T0 / [id number] / Viatorr Tips Endoprosthesis 8-10 Mm X 8cm / 2cm Implanted:Qty: 1 on 10/07/2020 by Go Alvarado MD at [facility] Right: Abdomen 03/03/2023 [id number] / / [id number] Description:Viatorr TIPS End oprosthesis 8-10 mm x 8cm / 2cm, Manufactored by [employer] Syr Pf 2ml Embospheres 100-300 - [id number] Implanted:Qty: 1 on 04/18/2021 by Kevin Lim DO at OR [facility] Left: Abdomen [employer] [id number] 11/25/2023 S220GH / / [id number] -5 Syr Pf 2ml Embospheres 100-300 - [id number] Implanted:Qty: 1 on 03/28/2022 at [facility] [employer] [id number] 08/31/2024 S220GH / / [id number] -[id number] Clareon Iol Aspheric Hydrophobic Acrylic Iol Implanted:Qty: 1 on 04/02/2023 by Cody Gonzalez DO at OR [facility] Right: Eye JAZMIN 11/12/2025 CNA0T0 / [id number] / documented as of this encounter Procedures Procedure Name Priority Date/Time Associated Diagnosis Comments RADIOLOGY EXAM - CT (IMAGES ONLY, NO REPORT) Routine 06/14/2023 11:45 AM EDT documented in this encounter Results * RADIOLOGY EXAM - CT (IMAGES ONLY, NO REPORT) (06/14/2023 11:45 AM EDT) 06/14/2023 11:4 1 AM EDT Narrative Scheduling, Silent - 07/31/2023 9:04 AM EDT This is an imaging study not interpreted or resulted by a [facility] or [facility] contracted radiologist. Clayton Vazquez MD RAD CT documented in this encounter Advance Directives Documents on File Type Date Recorded Patient Dormitory Keeper Expl anation Advance Directives and Living Will 12/11/2022 ADVANCE DIRECTIVE / LIVING WILL LIVING WILL Power of Boat Hoist Operator 12/11/2022 POWER OF A TTORNEY Latest [...] the patient have Health Care Power of Boat Hoist Operator? No Full Code 07/22/2014 9:56 PM 07/24/2014 8:18 PM This order reflects the patients wishes and were consensually agreed upon. Question Answer Comments Discussion of Advance Directives occurred with: Patient Does the patient have a Living Will? No Does the patient have Health Care Power of Boat Hoist Operator? No Care Teams Nuclear Plant Operator Relationship Specialty Start Date End Date Francisco Cisse MD [address] [facility] [place] [address] PCP - General Internal Medicine 09/04/21 documented as of this encounter
--- OUTSIDE RECORDS SUMMARY | 2023-11-26 12:41 | External Medical Summary | Summary of Care ---
Author Name Unknown Organization [facility] Address [address] [facility] [place] [address] Phone [phone] Care Team Providers Care Product Examiner Name Role Phone Francisco Cisse MD Primary Care Provider + Encounter Details Date Type Department Care Team Description 07/10/2023 Hospital Encounter Radiology Film File [address] [place] [address] Allergies No known active allergiesdocumented [...] hemoglobin A1c goal of less than 7.0% ([facility]) Use to test blood sugars 3 [...] already had his shot last month at [facility] Handy Lyons and Mckinley Cobian made [...] Visit Orthopedic Surgery Clayton Vazquez MD [address] [place] [address] 08/08/2023 Imaging Radiology 08/30/2023 Office Visit Gastroenterology Lamar Tatum CRNP [address] [place] [address] 09/30/2023 Office Visit Hematology Oncology Jennifer Ramires MD [address] [place] [address] 10/08/2023 Procedure Only Urology Frank Peraza MD [address] [facility] [address] [place] [address] 10/11/2023 Office Visit Internal Medicine Joaquin Snider PA-C [address] [place] [address] 06/11/2024 Office Visit Ophthalmology Cody Gonzalez DO [address] [facility] [place] [address] Health Maintenance Due Date Last [...] Additional history exists CKD PHOS USE SMARTSET 37603 01/28/202401/03, 07/26/2022, 12/05/2021, Additional history exists DIABETES-FOOT EXAM 03/06/2024 03/06/2023, 0 01/03/2022, 03/02/2021, Additional history exists Albumin/Creatinine Ratio 07/12/2024 023, 10/01/2022, 09/11/2021, Additional history exists CKD HGB USE SMARTSET 80835 07/24/202407/24, 07/12/2023, 07/12/2023, Additional history exists COLONOSCOPY-EVERY [...] this encounter Medical Devices Implanted Type Area Product Examiner Device Identifier Shelf Expiration Date Model / Serial / Lot Mary Annon Iol Aspheric Hydrophobic Acrylic Iol Implanted:Qty: 1 on 04/23/2023 by Cody Gonzalez DO at OR [facility] Lens Left: Eye 11/12/2025 CNA0T0 / [id number] / Viatorr Tips Endoprosthesis 8-10 Mm X 8cm / 2cm Implanted:Qty: 1 on 10/07/2020 by Go Alvarado MD at [facility] Right: Abdomen 03/03/2023 [id number] / / [id number] Description:Viatorr TIPS End oprosthesis 8-10 mm x 8cm / 2cm, Manufactored by [employer] [place] [employer] Syr Pf 2ml Embospheres 100-300 - [id number] Implanted:Qty: 1 on 04/18/2021 by Kevin Lim DO at OR [facility] Left: Abdomen [employer] [id number] 11/25/2023 S220GH / / [id number] -[id number] Syr Pf 2ml Embospheres 100-300 - [id number] Implanted:Qty: 1 on 03/28/2022 at [facility] [employer] [id number] 08/31/2024 S220GH / / [id number] -[id number] Clareon Iol Aspheric Hydrophobic Acrylic Iol Implanted:Qty: 1 on 04/02/2023 by Cody Gonzalez DO at OR [facility] Right: Eye JAZMIN 11/12/2025 CNA0T0 / [id number] / documented as of this encounter Procedures Procedure Name Priority Date/Time Associated Diagnosis Comments RADIOLOGY EXAM - CT (IMAGES ONLY, NO REPORT) Routine 07/10/2023 4:00 PM EDT documented in this encounter Results * RADIOLOGY EXAM - CT (IMAGES ONLY, NO REPORT) (07/10/2023 4:00 PM EDT) 07/10/2023 3:59 PM EDT Narrative Scheduling, Silent - 07/31/2023 9:13 AM EDT This is an imaging study not interpreted or resulted by a [facility] or [facility] contracted radiologist. Clayton Vazquez MD RAD CT documented in this encounter Advance Directives Documents on File Type Date Recorded Patient Hand Cloth Cutter Expl anation Advance Directives and Living Will 12/11/2022 ADVANCE DIRECTIVE / LIVING WILL LIVING WILL Power of Design Verification Engineer 12/11/2022 POWER OF A TTORNEY Latest [...] the patient have Health Care Power of Design Verification Engineer? No Full Code 07/22/2014 9:56 PM 07/24/2014 8:18 PM This order reflects the patients wishes and were consensually agreed upon. Question Answer Comments Discussion of Advance Directives occurred with: Patient Does the patient have a Living Will? No Does the patient have Health Care Power of Design Verification Engineer? No Care Teams Product Examiner Relationship Specialty Start Date End Date Francisoc Cisse MD [address] [place] [address] PCP - General Internal Medicine 09/04/21 documented as of this encounter
--- OUTSIDE RECORDS SUMMARY | 2023-11-26 12:41 | External Medical Summary | Summary of Care ---
Author Name Unknown Organization [facility] Address [address] [facility] [place] [address] Phone [phone] Care Team Providers Care Valet Name Role Phone Francisco Cisse MD Primary Care Provider + Encounter Details Date Type Department Care Team Description 06/16/2023 Hospital Encounter Radiology Film File [address] [place] [address] Allergies No known active allergiesdocumented [...] hemoglobin A1c goal of less than 7.0% ([facility]) Use to test blood sugars 3 [...] already had his shot last month at [facility] Handy Lyons and Mckinley Cobian [...] [address] [facility] [place] [address] 08/08/2023 Imaging Radiology 08/30/2023 Office Visit Gastroenterology Lamar Tatum CRNP [address] [place] [address] 09/30/2023 Office Visit Hematology Oncology Jennifer Ramires MD [address] [place] [address] 10/08/2023 Procedure Only Urology Frank Peraza MD [address] [facility] [address] [place] [address] 10/11/2023 Office Visit Internal Medicine Joaquin Snider PA-C [address] [place] [address] 06/11/2024 Office Visit Ophthalmology Cody Gonzalez DO [address] [facility] [facility] [place] [address] Health Maintenance Due Date Last [...] Additional history exists CKD PHOS USE SMARTSET 99091 01/28/202401/03, 07/26/2022, 12/05/2021, Additional history exists DIABETES-FOOT EXAM 03/06/2024 03/06/2023, 0 01/03/2022, 03/02/2021, Additional history exists Albumin/Creatinine Ratio 07/12/2024 023, 10/01/2022, 09/11/2021, Additional history exists CKD HGB USE SMARTSET 90978 07/24/202407/24, 07/12/2023, 07/12/2023, Additional history exists COLONOSCOPY-EVERY [...] this encounter Medical Devices Implanted Type Area Gift Packer Device Identifier Shelf Expiration Date Model / Serial / Lot Mary Annon Iol Aspheric Hydrophobic Acrylic Iol Implanted:Qty: 1 on 04/23/2023 by Cody Gonzalez DO at OR [facility] Lens Left: Eye 11/12/2025 CNA0T0 / [id number] / Viatorr Tips Endoprosthesis 8-10 Mm X 8cm / 2cm Implanted:Qty: 1 on 10/07/2020 by Go Alvarado MD at [facility] Right: Abdomen 03/03/2023 [id number] / / [id number] Description:Viatorr TIPS End oprosthesis 8-10 mm x 8cm / 2cm, Manufactored by [employer] [place] [employer] Syr Pf 2ml Embospheres 100-300 - [id number] Implanted:Qty: 1 on 04/18/2021 by Kevin Lim DO at OR [facility] Left: Abdomen [employer] [id number] 11/25/2023 S220GH / / [id number] -5 Syr Pf 2ml Embospheres 100-300 - [id number] Implanted:Qty: 1 on 03/28/2022 at [facility] [employer] [id number] 08/31/2024 S220GH / / [id number] -5 Clareon Iol Aspheric Hydrophobic Acrylic Iol Implanted:Qty: 1 on 04/02/2023 by Cody Gonzalez DO at OR [facility] Right: Eye JAZMIN 11/12/2025 CNA0T0 / [id number] / documented as of this encounter Procedures Procedure Name Priority Date/Time Associated Diagnosis Comments RADIOLOGY EXAM - MRI (IMAGES ONLY, NO REPORT) Routine 06/16/2023 3:00 PM EDT documented in this encounter Results * RADIOLOGY EXAM - MRI (IMAGES ONLY, NO REPORT) (06/16/2023 3:00 PM EDT) 06/16/2023 2:58 PM EDT Narrative Scheduling, Silent - 07/31/2023 9:03 AM EDT This is an imaging study not interpreted or resulted by a [facility] or [facility] contracted radiologist. Clayton Vazquez MD RAD MRI-MRA documented in this encounter Advance Directives Documents on File Type Date Recorded Patient Crab Catcher Expl anation Advance Directives and Living Will 12/11/2022 ADVANCE DIRECTIVE / LIVING WILL LIVING WILL Power of Cable Mock Up Assembler 12/11/2022 POWER OF A TTORNEY Latest Code [...] the patient have Health Care Power of Cable Mock Up Assembler? No Full Code 07/22/2014 9:56 PM 07/24/2014 8:18 PM This order reflects the patients wishes and were consensually agreed upon. Question Answer Comments Discussion of Advance Directives occurred with: Patient Does the patient have a Living Will? No Does the patient have Health Care Power of Cable Mock Up Assembler? No Care Teams Valet Relationship Specialty Start Date End Date Francisco Cisse MD [address] [facility] [place], [place] [address] PCP - General Internal Medicine 09/04/21 documented as of this encounter
--- OUTSIDE RECORDS SUMMARY | 2023-11-26 12:41 | External Medical Summary | Summary of Care ---
Author Name Unknown Organization [facility] Address [address] [facility] [place] [address] Phone [phone] Care Team Providers Care Bulk Mail Clerk Name Role Phone Francisco Cisse MD Primary Care Provider + Encounter Details Date Type Department Care Team Description 06/14/2023 Hospital Encounter Radiology Film File [address] [place] [address] Allergies No known active allergiesdocumented [...] A1c goal of less than 7.0% ([facility]) Use to test blood sugars [...] Visit Orthopedic Surgery Clayton Vazquez MD [address] [place] [address] 08/08/2023 Imaging Radiology 08/30/2023 Office Visit Gastroenterology Lamar Tatum CRNP [address] [place] [address] 09/30/2023 Office Visit Hematology Oncology Jennifer Ramires MD [address] [place] [address] 10/08/2023 Procedure Only Urology Frank Peraza MD [address] [facility] [address] [place] [address] 10/11/2023 Office Visit Internal Medicine Joaquin Snider PA-C [address] [place] [address] 06/11/2024 Office Visit Ophthalmology Cody Gonzalez DO [address] [facility] [place] [address] Health Maintenance Due Date Last [...] Additional history exists CKD PHOS USE SMARTSET 94446 01/28/202401/03, 07/26/2022, 12/05/2021, Additional history exists DIABETES-FOOT EXAM 03/06/2024 03/06/2023, 0 01/03/2022, 03/02/2021, Additional history exists Albumin/Creatinine Ratio 07/12/2024 023, 10/01/2022, 09/11/2021, Additional history exists CKD HGB USE SMARTSET 43880 07/24/202407/24, 07/12/2023, 07/12/2023, Additional history exists COLONOSCOPY-EVERY [...] this encounter Medical Devices Implanted Type Area Cork Compounder Device Identifier Shelf Expiration Date Model / Serial / Lot Mary Annon Iol Aspheric Hydrophobic Acrylic Iol Implanted:Qty: 1 on 04/23/2023 by Cody Gonzalez DO at OR [facility] Lens Left: Eye 11/12/2025 CNA0T0 / [id number] / Viatorr Tips Endoprosthesis 8-10 Mm X 8cm / 2cm Implanted:Qty: 1 on 10/07/2020 by Go Alvarado MD at [facility] Right: Abdomen 03/03/2023 [id number] / / [id number] Description:Viatorr TIPS End oprosthesis 8-10 mm x 8cm / 2cm, Manufactored by [employer] Syr Pf 2ml Embospheres 100-300 - [id number] Implanted:Qty: 1 on 04/18/2021 by Kevin Lim DO at OR [facility] Left: Abdomen [employer] [id number] 11/25/2023 S220GH / / [id number] Syr Pf 2ml Embospheres 100-300 - [id number] Implanted:Qty: 1 on 03/28/2022 at [facility] [employer] [id number] 08/31/2024 S220GH / / [id number] -[id number] Clareon Iol Aspheric Hydrophobic Acrylic Iol Implanted:Qty: 1 on 04/02/2023 by Cody Gonzalez DO at OR [facility] Right: Eye JAZMIN 11/12/2025 CNA0T0 / [id number] / documented as of this encounter Procedures Procedure Name Priority Date/Time Associated Diagnosis Comments RADIOLOGY EXAM - GENERAL RAD (IMAGES ONLY,NO REPORT) Routine 06/14/2023 12:00 PM EDT documented in this encounter Results * RADIOLOGY EXAM - GENERAL RAD (IMAGES ONLY,NO REPORT) (06/14/2023 12:00 PM EDT) 06/14/2023 11:5 6 AM EDT Narrative Scheduling, Silent - 07/31/2023 9:09 AM EDT This is an imaging study not interpreted or [facility] radiologist. Clayton Vazquez MD RADIOLOGY (RAD G ENERAL) documented in this encounter Advance Directives Documents on File Type Date Recorded Patient Vocational Rehabilitation Consultant Expl anation Advance Directives and Living Will 12/11/2022 ADVANCE DIRECTIVE / LIVING WILL LIVING WILL Power of Service Order Expediter 12/11/2022 POWER OF A TTORNEY Latest Code [...] the patient have Health Care Power of Service Order Expediter? No Full Code 07/22/2014 9:56 PM 07/24/2014 8:18 PM This order reflects the patients wishes and were consensually agreed upon. Question Answer Comments Discussion of Advance Directives occurred with: Patient Does the patient have a Living Will? No Does the patient have Health Care Power of Service Order Expediter? No Care Teams Bulk Mail Clerk Relationship Specialty Start Date End Date Francisco Cisse MD [address] [place] [address] PCP - General Internal Medicine 09/04/21 documented as of this encounter
--- OUTSIDE RECORDS SUMMARY | 2023-11-26 12:41 | External Medical Summary | Summary of Care ---
Author Name Unknown Organization [facility] Address [address] [place] [facility] [place] [place] [address] Phone [phone] Care Team Providers Care Video Game Animator Name Role Phone Francisco Cisse MD Primary Care Provider + Encounter Details Date Type Department Care Team Description 06/17/2023 Hospital Encounter Radiology Film File [address] [place] [address] Allergies No known active allergiesdocumented [...] hemoglobin A1c goal of less than 7.0% ([facility]) Use to test blood sugars [...] Visit Orthopedic Surgery Clayton Vazquez MD [address] [place] [address] 08/08/2023 Imaging Radiology 08/30/2023 Office Visit Gastroenterology Lamar Tatum CRNP [address] [place] [address] 09/30/2023 Office Visit Hematology Oncology Jennifer Ramires MD [address] [place] [address] 10/08/2023 Procedure Only Urology Frank Peraza MD [address] [facility] [address] [place] [address] 10/11/2023 Office Visit Internal Medicine Joaquin Snider PA-C [address] [place] [address] 06/11/2024 Office Visit Ophthalmology Cody Gonzalez DO [address] [facility] [place] [address] Health Maintenance Due Date Last [...] Additional history exists CKD PHOS USE SMARTSET 80012 01/28/202401/03, 07/26/2022, 12/05/2021, Additional history exists DIABETES-FOOT EXAM 03/06/2024 03/06/2023, 0 01/03/2022, 03/02/2021, Additional history exists Albumin/Creatinine Ratio 07/12/2024 023, 10/01/2022, 09/11/2021, Additional history exists CKD HGB USE SMARTSET 98780 07/24/202407/24, 07/12/2023, 07/12/2023, Additional history exists COLONOSCOPY-EVERY [...] this encounter Medical Devices Implanted Type Area Metal Burrer Device Identifier Shelf Expiration Date Model / Serial / Lot Mary Annon Iol Aspheric Hydrophobic Acrylic Iol Implanted:Qty: 1 on 04/23/2023 by Cody Gonzalez DO at OR [facility] Lens Left: Eye 11/12/2025 CNA0T0 / [id number] 136 / Viatorr Tips Endoprosthesis 8-10 Mm X 8cm / 2cm Implanted:Qty: 1 on 10/07/2020 by Go Alvarado MD at [facility] Right: Abdomen 03/03/2023 [id number] / / [id number] Description:Viatorr TIPS End oprosthesis 8-10 mm x 8cm / 2cm, Manufactored by [employer] [place] [employer] Syr Pf 2ml Embospheres 100-300 - [id number] Implanted:Qty: 1 on 04/18/2021 by Kevin Lim DO at OR [facility] Left: Abdomen [employer] [id number] 11/25/2023 S220GH / / [id number] Syr Pf 2ml Embospheres 100-300 - [id number] Implanted:Qty: 1 on 03/28/2022 at [facility] [employer] [id number] 08/31/2024 S220GH / / [id number] -[id number] Clareon Iol Aspheric Hydrophobic Acrylic Iol Implanted:Qty: 1 on 04/02/2023 by Cody Gonzalez DO at OR [facility] Right: Eye JAZMIN 11/12/2025 CNA0T0 / [id number] / documented as of this encounter Procedures Procedure Name Priority Date/Time Associated Diagnosis Comments RADIOLOGY EXAM - CT (IMAGES ONLY, NO REPORT) Routine 06/17/2023 11:55 AM EDT documented in this encounter Results * RADIOLOGY EXAM - CT (IMAGES ONLY, NO REPORT) (06/17/2023 11:55 AM EDT) 06/17/2023 11:5 3 AM EDT Narrative Scheduling, Silent - 07/31/2023 9:12 AM EDT This is an imaging study not interpreted or resulted by a [facility] or [facility] contracted radiologist. 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 No Full Code 07/22/2014 9:56 PM 07/24/2014 8:18 PM This order reflects the patients wishes and were consensually agreed upon. Question Answer Comments Discussion of Advance Directives occurred with: Patient Does the patient have a Living Will? No Does the patient have Health Care Power of Finger Waver? No Care Teams Video Game Animator Relationship Specialty Start Date End Date Francisco Cisse MD [address] [facility] [place] [address] PCP - General Internal Medicine 09/04/21 documented as of this encounter
--- OUTSIDE RECORDS SUMMARY | 2023-11-26 12:41 | External Medical Summary | Summary of Care ---
Author Name Unknown Organization [facility] Address [address] [place] [facility] [place] [address] Phone [phone] Care Team Providers Care Brand Planner Name Role Phone Francisco Cisse MD Primary Care Provider + Encounter Details Date Type Department Care Team Description 06/16/2023 Hospital Encounter Radiology Film File [address] [place] [address] Allergies No known active allergiesdocumented [...] hemoglobin A1c goal of less than 7.0% ([facility]) Use to test blood sugars [...] already had his shot last month at [facility] M[facility]inley [...] Visit Orthopedic Surgery Clayton Vazquez MD [address] [place] [address] 08/08/2023 Imaging Radiology 08/30/2023 Office Visit Gastroenterology Lamar Tatum CRNP [address] [place] [address] 09/30/2023 Office Visit Hematology Oncology Jennifer Ramires MD [address] [place] [address] 10/08/2023 Procedure Only Urology Frank Peraza MD [address] [facility] [address] [place] [address] 10/11/2023 Office Visit Internal Medicine Joaquin Snider PA-C [address] [place] [address] 06/11/2024 Office Visit Ophthalmology Cody Gonzalez DO [address] [facility] [place] [address] Health Maintenance Due Date Last [...] Additional history exists CKD PHOS USE SMARTSET 14881 01/28/202401/03, 07/26/2022, 12/05/2021, Additional history exists DIABETES-FOOT EXAM 03/06/2024 03/06/2023, 0 01/03/2022, 03/02/2021, Additional history exists Albumin/Creatinine Ratio 07/12/2024 023, 10/01/2022, 09/11/2021, Additional history exists CKD HGB USE SMARTSET 92128 07/24/202407/24, 07/12/2023, 07/12/2023, Additional history exists COLONOSCOPY-EVERY [...] this encounter Medical Devices Implanted Type Area Drill Grinder Device Identifier Shelf Expiration Date Model / Serial / Lot Mary Annon Iol Aspheric Hydrophobic Acrylic Iol Implanted:Qty: 1 on 04/23/2023 by Cody Gonzalez DO at OR [facility] Lens Left: Eye 11/12/2025 CNA0T0 / [id number] / Viatorr Tips Endoprosthesis 8-10 Mm X 8cm / 2cm Implanted:Qty: 1 on 10/07/2020 by Go Alvarado MD at [facility] Right: Abdomen 03/03/2023 [id number] / / [id number] Description:Viatorr TIPS End oprosthesis 8-10 mm x 8cm / 2cm, Manufactored by [employer] Syr Pf 2ml Embospheres 100-300 - [id number] Implanted:Qty: 1 on 04/18/2021 by Kevin Lim DO at OR [facility] Left: Abdomen [employer] [id number] 11/25/2023 S220GH / / [id number] -[id number] Syr Pf 2ml Embospheres 100-300 - [id number] Implanted:Qty: 1 on 03/28/2022 at [facility] [employer] [id number] 08/31/2024 S220GH / / [id number] -[id number] Clareon Iol Aspheric Hydrophobic Acrylic Iol Implanted:Qty: 1 on 04/02/2023 by Cody Gonzalez DO at OR [facility] Right: Eye JAZMIN 11/12/2025 CNA0T0 / [id number] / documented as of this encounter Procedures Procedure Name Priority Date/Time Associated Diagnosis Comments RADIOLOGY EXAM - MRI (IMAGES ONLY, NO REPORT) Routine 06/16/2023 3:20 PM EDT documented in this encounter Results * RADIOLOGY EXAM - MRI (IMAGES ONLY, NO REPORT) (06/16/2023 3:20 PM EDT) 06/16/2023 3:20 PM EDT Narrative Scheduling, Silent - 07/31/2023 9:09 AM EDT This is an imaging study not interpreted or resulted by a [facility] or [facility] contracted radiologist. 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 No Full Code 07/22/2014 9:56 PM 07/24/2014 8:18 PM This order reflects the patients wishes and were consensually agreed upon. Question Answer Comments Discussion of Advance Directives occurred with: Patient Does the patient have a Living Will? No Does the patient have Health Care Power of Warehouse Man? No Care Teams Brand Planner Relationship Specialty Start Date End Date Francisco Cisse MD [address] [facility] [place], [place] [address] PCP - General Internal Medicine 09/04/21 documented as of this encounter
--- OUTSIDE RECORDS SUMMARY | 2023-11-26 12:41 | External Medical Summary | Summary of Care ---
Author Name Unknown Organization [facility] Address [address] [place] [facility] [place] [address] Phone [phone] Care Team Providers Care Cabin Furnishings Installer Name Role Phone Francisco Cisse MD Primary Care Provider + Encounter Details Date Type Department Care Team Description 06/21/2023 Hospital Encounter Radiology Film File [address] [place] [address] Allergies No known active allergiesdocumented [...] A1c goal of less than 7.0% ([facility]) Use to test blood sugars 3 [...] had his shot last month at [facility] [employer] Mckinley Cobian [...] Vazquez MD [address] [place] [address] 08/08/2023 Imaging Radiology 08/30/2023 Office Visit Gastroenterology Lamar Tatum CRNP [address] [place] [address] 09/30/2023 Office Visit Hematology Oncology Jennifer Ramires MD [address] [place] [address] 10/08/2023 Procedure Only Urology Frank Peraza MD [address] [facility] [address] [place] [address] 10/11/2023 Office Visit Internal Medicine Joaquin Snider PA-C [address] [place] [address] 06/11/2024 Office Visit Ophthalmology Cody Gonzalez DO [address] [facility] [address] Health Maintenance Due Date Last [...] Additional history exists CKD PHOS USE SMARTSET 76508 01/28/202401/03, 07/26/2022, 12/05/2021, Additional history exists DIABETES-FOOT EXAM 03/06/2024 03/06/2023, 0 01/03/2022, 03/02/2021, Additional history exists Albumin/Creatinine Ratio 07/12/2024 023, 10/01/2022, 09/11/2021, Additional history exists CKD HGB USE SMARTSET 52682 07/24/202407/24, 07/12/2023, 07/12/2023, Additional history exists COLONOSCOPY-EVERY [...] this encounter Medical Devices Implanted Type Area Pelt Salter Device Identifier Shelf Expiration Date Model / Serial / Lot Mary Annon Iol Aspheric Hydrophobic Acrylic Iol Implanted:Qty: 1 on 04/23/2023 by Cody Gonzalez DO at OR [facility] Lens Left: Eye 11/12/2025 CNA0T0 / [id number] 136 / Viatorr Tips Endoprosthesis 8-10 Mm X 8cm / 2cm Implanted:Qty: 1 on 10/07/2020 by Go Alvarado MD at [facility] Right: Abdomen 03/03/2023 [id number] / / [id number] Description:Viatorr TIPS End oprosthesis 8-10 mm x 8cm / 2cm, Manufactored by [employer] [place] [employer] Syr Pf 2ml Embospheres 100-300 - [id number] Implanted:Qty: 1 on 04/18/2021 by Kevin Lim DO at OR [facility] Left: Abdomen [employer] [id number] 11/25/2023 S220GH / / [id number] -[id number] Syr Pf 2ml Embospheres 100-300 - [id number] Implanted:Qty: 1 on 03/28/2022 at [facility] [employer] [id number] 08/31/2024 S220GH / / [id number] -[id number] Clareon Iol Aspheric Hydrophobic Acrylic Iol Implanted:Qty: 1 on 04/02/2023 by Cody Gonzalez DO at OR [facility] Right: Eye JAZMIN 11/12/2025 CNA0T0 / [id number] / documented as of this encounter Procedures Procedure Name Priority Date/Time Associated Diagnosis Comments RADIOLOGY EXAM - CT (IMAGES ONLY, NO REPORT) Routine 06/21/2023 8:45 AM EDT documented in this encounter Results * RADIOLOGY EXAM - CT (IMAGES ONLY, NO REPORT) (06/21/2023 8:45 AM EDT) 06/21/2023 8:44 AM EDT Narrative Scheduling, Silent - 07/31/2023 9:15 AM EDT This is an imaging study not interpreted or resulted by a [facility] or [facility] contracted radiologist. 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 No Full Code 07/22/2014 9:56 PM 07/24/2014 8:18 PM This order reflects the patients wishes and were consensually agreed upon. Question Answer Comments Discussion of Advance Directives occurred with: Patient Does the patient have a Living Will? No Does the patient have Health Care Power of Head Of Quality? No Care Teams Cabin Furnishings Installer Relationship Specialty Start Date End Date Francisco Cisse MD [address] [place] [address] PCP - General Internal Medicine 09/04/21 documented as of this encounter
--- OUTSIDE RECORDS SUMMARY | 2023-11-26 12:42 | External Medical Summary | Summary of Care ---
Author Name Unknown Organization [facility] Address [address] [place] [facility] [place] [place] [address] Phone [phone] Care Team Providers Care Biomedical Engineering Aide Name Role Phone Francisco Cisse MD Primary Care Provider + Encounter Details Date Type Department Care Team Description 06/17/2023 Orders Only Orthopaedics, [address] [id number] Clayton Vazquez MD [address] [place] [phone] Allergies No known active allergiesdocumented as of this encounter (statuses as of 07/31/2023) Medications Medication Sig Dispensed Refills Start Date [...] as of this encounter (statuses as of 07/31/2023) Active Problems Problem Noted Date Closed T12 [...] as of this encounter (statuses as of 07/31/2023) Resolved Problems Problem Noted Date Resolved Date [...] as of this encounter (statuses as of 07/31/2023) Immunizations Name Administration Dates Next Due COVID-19 mRNA, LNP-s, No Pre serve, 2-Dose Series (MyTime) 03/08/2021,02/15/2021 HepA Inact/HepB Recomb>=18yrs old 12/04/2019,04/2019,05/20/2019 11/19/2019 PPD 06/18/2017, 3,01/09/2012,06/2011 Pneumococcal Conjugate Vacc, 13 Valent (Prevnar) 05/01/2017 Pneumococcal Polysaccharide PPV23 (Pneumovax) 08/28/2022,10/25/2015,07/14/2012 Season Influenza, Quad, PF, Adjuvanted, 65+ Yrs, IM (FLUAD) 10/07/2020(Deferred: Patient Refused - pt says he already had his shot last month at [facility] [employer] Mckinley [...] Visit Orthopedic Surgery Clayton Vazquez MD [address] [place] [address] 08/08/2023 Imaging Radiology 08/30/2023 Office Visit Gastroenterology Lamar Tatum CRNP [address] [place] [address] 09/30/2023 Office Visit Hematology Oncology Jennifer Ramires MD 200 [place] [address] 10/08/2023 Procedure Only Urology Frank Peraza MD [address] [place] [address] [place] [address] 10/11/2023 Office Visit Internal Medicine Joaquin Snider PA-C [address] [place] [address] 06/11/2024 Office Visit Ophthalmology Cody Gonzalez DO [address] [place] [address] Health Maintenance Due Date Last [...] Additional history exists CKD PHOS USE SMARTSET 12635 01/28/202401/03, 07/26/2022, 12/05/2021, Additional history exists DIABETES-FOOT EXAM 03/06/2024 03/06/2023, 0 01/03/2022, 03/02/2021, Additional history exists Albumin/Creatinine Ratio 07/12/2024 023, 10/01/2022, 09/11/2021, Additional history exists CKD HGB USE SMARTSET 25847 07/24/202407/24, 07/12/2023, 07/12/2023, Additional history exists COLONOSCOPY-EVERY [...] this encounter Medical Devices Implanted Type Area Mash Grinder Device Identifier Shelf Expiration Date Model / Serial / Lot Clareon Iol Aspheric Hydrophobic Acrylic Iol Implanted:Qty: 1 on 04/23/2023 by Cody Gonzalez DO at OR [facility] Lens Left: Eye 11/12/2025 CNA0T0 / [id number] / Viatorr Tips Endoprosthesis 8-10 Mm X 8cm / 2cm Implanted:Qty: 1 on 10/07/2020 by Go Alvarado MD at [facility] Right: Abdomen 03/03/2023 [id number] / / [id number] Description:Viatorr TIPS End oprosthesis 8-10 mm x 8cm / 2cm, Manufactored by [employer] Syr Pf 2ml Embospheres 100-300 - [id number] Implanted:Qty: 1 on 04/18/2021 by Kevin iLm DO at OR [facility] Left: Abdomen [employer] [id number] 11/25/2023 S220GH / / [id number] -5 Syr Pf 2ml Embospheres 100-300 - [id number] Implanted:Qty: 1 on 03/28/[address] [facility] [employer] [id number] 08/31/2024 S220GH / / [id number] -5 Clareon Iol Aspheric Hydrophobic Acrylic Iol Implanted:Qty: 1 on 04/02/2023 by Cody Gonzalez DO at OR [facility] Right: Eye JAZMIN 11/12/2025 CNA0T0 / [id number] / documented as of this encounter [...] study not interpreted or resulted by a [facility] or [facility] contracted radiologist. 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 No Full Code 07/22/2014 9:56 PM 07/24/2014 8:18 PM This order reflects the patients wishes and were consensually agreed upon. Question Answer Comments Discussion of Advance Directives occurred with: Patient Does the patient have a Living Will? No Does the patient have Health Care Power of Photocopying Equipment Mechanic? No Care Teams Biomedical Engineering Aide Relationship Specialty Start Date End Date Francisco Cisse MD [address] [place] [address] PCP - General Internal Medicine 09/04/21 documented as of this encounter
--- OUTSIDE RECORDS SUMMARY | 2023-11-26 12:42 | External Medical Summary | Summary of Care ---
Author Name Unknown Organization [facility] Address [address] [facility] [address] Phone [phone] Care Team Providers Care Frit Burner Name Role Phone Francisco Cisse MD Primary Care Provider + Reason for Visit * Reason Onset Date Comments Medication Refill 07/28/2023 Encounter Details Date Type Department Care Team Description 07/28/2023 Refill General Internal Medicine [facility] [address] [facility] [place] [address] Joaquin Snider PA-C [address] [facility] [place] [address] Cirrhosis of liver with ascites, unspecified hepatic cirrhosis type (HCC) Allergies No known active allergiesdocumented as of this encounter (statuses as of 07/30/2023) Medications Medication Sig Dispensed Refills Start Date End Date Status Tylenol 325 MG Oral Capsule (Acetaminophen) Take 650 mg by mouth every 8 hours as needed for Pain (fever). 0 Active Allopurinol 100 MG Oral Tablet (Zyloprim)Indicati ons:Gout of big toe Take 2 Tabs by mouth daily. 180 Tab 2 07/28/2021 Active OneTouch Verio In Vitro Strip (Glucose [...] 01/29/2023 Active Lactulose 10 GM/15ML Oral Solution (Constulose)Indica tions:Other cirrhosis of liver (HCC) Take 15 mL by mouth in the morning and 15 mL before bedtime. 2700 mL 6 01/29/2023 Active Mirtazapine 30 MG Oral Tablet (Remeron)Indicatio ns:Neoplastic (malignant) related fatigue,Depression due to physical illness Take 1 Tablet by mouth at bedtime. 90 Tablet 1 02/15/2023 Active Additional Information Patient not taking.Reported on 07/12/2023 Repaglinide 1 MG Oral TabletIndications: Type 2 [...] on 07/12/2023 Lactulose 10 GM Oral Packet (Kristalose)Indica tions:Cirrhosis [...] Active Lantus SoloStar 100 UNIT/ML Subcutaneous Solution Pen-injectorIndica tions:Type 2 diabetes mellitus with hemoglobin A1c goal of less than 7.0% (HCC) Inject 20 Units under the skin daily with dinner. 15 mL 3 06/05/2023 Active Ondansetron HCl 4 MG Oral TabletIndications: Nausea without vomiting,Liver cell carcinoma (HCC),GAVE (gastric antral vascular ectasia) Take 1 Tablet by mouth every 8 hours as needed for Nausea. 30 Tablet 0 06/12/2023 Active Additional Information Patient not taking.Reported on 07/12/2023 Baclofen 5 MG Oral Tablet (Lioresal)Indicati ons:Other [...] the morning. 180 Tablet 3 07/30/2023 Active Furosemide 20 MG Oral Tablet (Lasix)Indications :Cirrhosis of liver with ascites, unspecified hepatic cirrhosis type (HCC) Take 2 Tablets by mouth in the morning. 60 Tablet 2 06/11/2023 3 Discontinue d(Refill) Hospital, Clinic, or Other [...] as of this encounter (statuses as of 07/30/2023) Active Problems Problem Noted Date Closed T12 [...] as of this encounter (statuses as of 07/30/2023) Resolved Problems Problem Noted Date Resolved Date [...] as of this encounter (statuses as of 07/30/2023) Immunizations Name Administration Dates Next Due COVID-19 mRNA, LNP-s, No Pre serve, 2-Dose Series (Holvi) 03/08/2021,02/15/2021 HepA Inact/HepB Recomb>=18yrs old 12/04/2019,04/2019,05/20/2019 11/19/2019 PPD 06/18/2017, 3,01/09/2012,06/2011 Pneumococcal Conjugate Vacc, 13 Valent (Prevnar) 05/01/2017 Pneumococcal Polysaccharide PPV23 (Pneumovax) 08/28/2022,10/25/2015,07/14/2012 Season Influenza, Quad, PF, Adjuvanted, 65+ Yrs, IM (FLUAD) 10/07/2020(Deferred: Patient Refused - pt says he already had his shot last month at [facility] and [facility]in[facility] Cobian made aware) [...] encounter Miscellaneous Notes * Telephone Encounter - Francisco Cisse MD - 07/30/2023 12:20 PM EDTSigned Prescriptions: Disp Refills Furosemide 20 MG Oral Tablet (Lasix) 180 Ta*3 Sig: Take 2 Tablets by mouth in the morning. Authorizing Provider: FRANCISCO CISSE * Telephone Encounter - Corina Prado LPN - 07/30/2023 12:08 PM EDTPending Prescriptions: Disp Refills Furosemide 20 MG Oral Tablet (Lasix) 180 Ta*3 Sig: Take 2 Tablets by mouth in the morning. * Telephone Encounter - Corina Prado LPN - 07/30/2023 12:07 PM EDT Did you pend patient's preferred pharmacy and medication before forwarding?yes Pharmacy: [facility] [address] [place] [address] Pending Prescriptions: Disp Refills Furosemide 20 MG Oral Tablet (Lasix) 60 Tab*2 Sig: Take 2 Tablets by mouth in the morning. Last Visit: 07/12/2023 (in office), Visit date not found (telemedicine) Next Visit: 10/11/2023 If no future appointments scheduled, and last appointment is greater than a year ago, please schedule patient for a follow-up appointment Last date the medication was ordered: 06/11/2023 Is this request for a controlled substance?No Urine Drug Screen: Results for orders placed or performed in visit on 11/20/21 TOXICOLOGY, URINE SCREEN W/ CONFIRMATION Result Value Amphetamine Negative Benzodiazepines Negative Cannabinoids Negative Cocaine Metabolite Negative Hydrocodone / Hydromorphone Negative Methadone Metabolite Negative Morphine / Codeine Negative Oxycodone / Oxymorphone Negative Narrative Cutoff Concentrations: Drug Level Amphetamines 500 ng/mL Benzodiazepines 100 ng/mL Cannabinoids 50 ng/mL Cocaine Metabolite 150 ng/mL Hydrocodone / Hydromorphone 300 ng/mL Methadone Metabolite 100 ng/mL Morphine / Codeine 300 ng/mL Oxycodone / Oxymorphone 100 ng/mL Screening results are presumptive and can only be used for medical purposes. Positive screening results are reflexed to confirmatory testing. *Note: Due to a large number of results and/or encounters for the requested time period, some results have not been displayed. A complete set of results can be found in Results Review. Patient Phone Numbers Labs: Lab Results Component Value Date/Time CREAT 1.11 07/24/2023 12:00 AM CREAT 1.5 (H) 11/30/2020 11:06 AM POTASSIUM 4.3 07/24/2023 12:00 AM POTASSIUM 4.1 11/30/2020 11:06 AM TSH 2.62 03/15/2023 11:21 AM TSH 2.36 10/24/2020 01:56 PM LDLCALC 43 01/28/2023 09:00 AM LDLCALC 34 08/15/2020 10:35 AM LDLDIRECT NOT APPLICABLE 06/06/2020 02:58 PM LDLDIRECT 44 01/15/2018 03:24 PM ALT 32 07/12/2023 12:36 PM ALT 28 11/30/2020 11:06 AM HGBA1C 5.3 05/28/2023 12:14 PM HGBA1C 5.4 07/18/2021 02:28 PM HGBA1C 6.0 (H) 11/07/2020 01:07 PM documented in this encounter Plan of Treatment Upcoming Encounters Date Type Specialty Care Team Description 08/02/2023 Office Visit [place] [address] [place] [address] 08/08/2023 Imaging Radiology 08/30/2023 Office Visit Gastroenterology Lamar Tatum CRNP [address] [place] [address] 09/30/2023 Office Visit Hematology Oncology Jennifer Ramires MD [address] [place] [facility] [address] 10/08/2023 Procedure Only Urology Frank Peraza MD [address] [place] [address] [place] [address] 10/11/2023 Office Visit Internal Medicine Joaquin Snider PAYamila [address] [place] [address] 06/11/2024 Office Visit Ophthalmology Cody Gonzalez, [address] [place] [address] Health Maintenance Due Date Last Done Comments [...] Additional history exists CKD PHOS USE SMARTSET 17070 01/28/202401/03, 07/26/2022, 12/05/2021, Additional history exists DIABETES-FOOT EXAM 03/06/2024 03/06/2023, 0 01/03/2022, 03/02/2021, Additional history exists Albumin/Creatinine Ratio 07/12/2024 023, 10/01/2022, 09/11/2021, Additional history exists CKD HGB USE SMARTSET 77287 07/24/202407/24, 07/12/2023, 07/12/2023, Additional history exists COLONOSCOPY-EVERY [...] this encounter Medical Devices Implanted Type Area Ice Cream Van Vendor Device Identifier Shelf Expiration Date Model / Serial / Lot Clareon Iol Aspheric Hydrophobic Acrylic Iol Implanted:Qty: 1 on 04/23/2023 by Cody Gonzalez DO at [facility] Lens Left: Eye 11/12/2025 CNA0T0 / [id number] / Viatorr Tips Endoprosthesis 8-10 Mm X 8cm / 2cm Implanted:Qty: 1 on 10/07/2020 by Go Alvarado MD at [facility] Right: Abdomen 03/03/2023 [id number] / / [id number] Description:Viatorr TIPS End oprosthesis 8-10 mm x 8cm / 2cm, Manufactored by [employer] Syr Pf 2ml Embospheres 100-300 - [id number] Implanted:Qty: 1 on 04/18/2021 by Kevin Lim DO at [facility] Left: Abdomen [employer] [id number] 11/25/2023 S220GH / / [id number] Syr Pf 2ml Embospheres 100-300 - [id number] Implanted:Qty: 1 on 03/28/2022 at [facility] [email or web address] [id number] 08/31/2024 S220GH / / [id number] -[id number] Clareon Iol Aspheric Hydrophobic Acrylic Iol Implanted:Qty: 1 on 04/02/2023 by Cody Gonzalez DO at [facility] Right: Eye JAZMIN 11/12/2025 CNA0T0 / [id number] / documented as of this encounter Visit Diagnoses Diagnosis Cirrhosis of liver with ascites, unspecified hepatic cirrhosis type (HCC) documented in this encounter Advance Directives Documents on File Type Date Recorded 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 No Full Code 07/22/2014 9:56 PM 07/24/2014 8:18 PM This order reflects the patients wishes and were consensually agreed upon. Question Answer Comments Discussion of Advance Directives occurred with: Patient Does the patient have a Living Will? No Does the patient have Health Care Power of Leasing Sales Consultant? No Care Teams Frit Burner Relationship Specialty Start Date End Date Francisco Cisse MD [facility] [place] [address] PCP - General Internal Medicine 09/04/21 documented as of this encounter
--- OUTSIDE RECORDS SUMMARY | 2023-11-26 12:42 | External Medical Summary | Summary of Care ---
Author Name Unknown Organization [facility] Address [address] [facility] [place] [address] Phone [phone] Care Team Providers Care 3Rd Grade Teacher Name Role Phone Francisco Cisse MD Primary Care Provider + Reason for Visit * Reason Onset Date Comments Medication Refill 07/28/2023 Encounter Details Date Type Department Care Team Description 07/28/2023 Refill [facility]phrology, [facility] [address] Eliud Parrish MD [address] [place] [address] Gout of big toe Allergies No known active allergiesdocumented as of [...] fracture of twelfth thoracic vertebra, initial encounter ([facility]) Take 1 Tablet by mouth in the morning and 1 Tablet in the evening. 30 Tablet 1 07/12/2023 Active oxyCODONE HCl 5 MG Oral Tablet (Oxy IR)Indications:Oth er closed fracture of twelfth thoracic vertebra, initial encounter ([facility]) Take 1 Tablet by mouth every 6 hours as needed for Pain, Severe. 28 Tablet 0 07/12/2023 Active Allopurinol 100 MG Oral Tablet (Zyloprim)Indicati ons:Gout of big toe Take 2 Tablets by mouth in the morning. 180 Tablet 2 07/30/2023 Active Allopurinol 100 MG Oral Tablet (Zyloprim)Indicati ons:Gout of big toe Take 2 Tabs by mouth daily. 180 Tab 2 07/28/2021 3 Discontinue d(Refill) Furosemide 20 MG Oral Tablet (Lasix)Indications :Cirrhosis [...] mRNA, LNP-s, No Pre serve, 2-Dose Series (qLearning) 03/08/2021,02/15/2021 HepA Inact/HepB Recomb>=18yrs old 12/04/2019,04/2019,05/20/2019 11/19/2019 [...] = 0.6 oz pur e alcohol) 1970 Food Insecurity Answer Date Recorded Within the [...] Encounter - Francisco Cisse MD - 07/30/2023 3:52 PM EDTSigned Prescriptions: Disp Refills Allopurinol 100 MG Oral Tablet (Zyloprim) 180 Ta*2 Sig: Take 2 Tablets by mouth in the morning. Authorizing Provider: FRANCISCO CISSE * Telephone Encounter - Corina Prado LPN - 07/30/2023 3:38 PM EDT Did you pend patient's preferred pharmacy and medication before forwarding?yes Pharmacy: [facility] [address] [place] [address] Pending Prescriptions: Disp Refills Allopurinol 100 MG Oral Tablet (Zyloprim) 180 Ta*2 Sig: Take 2 Tablets by mouth in the morning. Last Visit: 12/05/2021 (in office), 11/30/2020 (telemedicine) Next Visit: Visit date not found If no future appointments scheduled, and last appointment is greater than a year ago, please schedule patient for a follow-up appointment Last date the medication was ordered: 07/28/2021 Is this request for a controlled substance?No [...] PM HGBA1C 6.0 (H) 11/07/2020 01:07 PM * Telephone Encounter - Gudelia Blanchard LPN - 07/29/2023 8:06 AM EDT Pt never seen by nephrology. Refill request received from pharmacy (allopurinol) will forward to primary care. documented in this encounter Plan of Treatment Upcoming Encounters Date Type Specialty Care Team Description 08/02/2023 Office Visit [place] [address] [place] [address] 08/08/2023 Imaging Radiology 08/30/2023 Office Visit Gastroenterology Lamar Tatum CRNP [address] [place] [address] 09/30/2023 Office Visit Hematology Oncology Jennifer Ramires MD 200 [facility] [place] [address] 10/08/2023 Procedure Only Urology Frank Peraza MD [address] [facility] [address] [place] [address] 10/11/2023 Office Visit Internal Medicine Joaquin Snider PA-C [address] [place] [address] 06/11/2024 Office Visit Ophthalmology Cody Gonzalez DO [address] [place] [address] Health Maintenance Due Date Last Done Comments [...] Additional history exists CKD PHOS USE SMARTSET 14984 01/28/202401/03, 07/26/2022, 12/05/2021, Additional history exists DIABETES-FOOT EXAM 03/06/2024 03/06/2023, 0 01/03/2022, 03/02/2021, Additional history exists Albumin/Creatinine Ratio 07/12/2024 023, 10/01/2022, 09/11/2021, Additional history exists CKD HGB USE SMARTSET 19922 07/24/202407/24, 07/12/2023, 07/12/2023, Additional history exists COLONOSCOPY-EVERY [...] this encounter Medical Devices Implanted Type Area Rigging Helper Device Identifier Shelf Expiration Date Model / Serial / Lot Clareon Iol Aspheric Hydrophobic Acrylic Iol Implanted:Qty: 1 on 04/23/2023 by Cody Gonzalez DO at [facility] Lens Left: Eye 11/12/2025 CNA0T0 / [id number] / Viatorr Tips Endoprosthesis 8-10 Mm X 8cm / 2cm Implanted:Qty: 1 on 10/07/2020 by Go Alvarado MD at [facility] Right: Abdomen 03/03/2023 [id number] / / [id number] Description:Viatorr TIPS End oprosthesis 8-10 mm x 8cm / 2cm, Manufactored by [employer] [employer] Syr Pf 2ml Embospheres 100-300 - [id number] Implanted:Qty: 1 on 04/18/2021 by Kevin Lim DO at [facility] Left: Abdomen [employer] [id number] 11/25/2023 S220GH / / [id number] -[id number] Syr Pf 2ml Embospheres 100-300 - [id number] Implanted:Qty: 1 on 03/28/2022 at [facility] [employer] [id number] 08/31/2024 S220GH / / [id number] -5 Clareon Iol Aspheric Hydrophobic Acrylic Iol Implanted:Qty: 1 on 04/02/2023 by Cody Gonzalez DO at OR [facility] Right: Eye JAZMIN 11/12/2025 CNA0T0 / [id number] / documented as of this encounter Visit Diagnoses Diagnosis Gout of big toe Acute gouty arthropathy documented in this encounter Advance Directives Documents on File Type Date Recorded 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 No Full Code 07/22/2014 9:56 PM 07/24/2014 8:18 PM This order reflects the patients wishes and were consensually agreed upon. Question Answer Comments Discussion of Advance Directives occurred with: Patient Does the patient have a Living Will? No Does the patient have Health Care Power of Facilities Flight Check Pilot? No Care Teams 3Rd Grade Teacher Relationship Specialty Start Date End Date Francisco Cisse MD [address] [place] [address] [place] [address] PCP - General Internal Medicine 09/04/21 documented as of this encounter
--- OUTSIDE RECORDS SUMMARY | 2023-11-26 12:42 | External Medical Summary | Summary of Care ---
Author Name Unknown Organization [facility] Address [address] [facility] [place] [address] Phone [phone] Care Team Providers Care Car Groomer Name Role Phone Francisco Cisse MD Primary Care Provider + Encounter Details Date Type Department Care Team Description 06/16/2023 Orders Only Orthopaedics, [address] [id number] Clayton Vazquez MD [address] [place] [id number] Allergies No known active allergiesdocumented as of [...] mRNA, LNP-s, No Pre serve, 2-Dose Series (M[employer]D ANTIQUES & CONSIGNMENT) 03/08/2021,02/15/2021 HepA Inact/HepB Recomb>=18yrs old 12/04/2019,04/2019,05/20/2019 11/19/2019 PPD 06/18/2017, 3,01/09/2012,06/2011 Pneumococcal Conjugate Vacc, 13 Valent (Prevnar) 05/01/2017 Pneumococcal Polysaccharide PPV23 (Pneumovax) 08/28/2022,10/25/2015,07/14/2012 Season Influenza, Quad, PF, Adjuvanted, 65+ Yrs, IM (FLUAD) 10/07/2020(Deferred: Patient Refused - pt says he already had his shot last month at [facility] and Mckinley Cobian made [...] Visit Orthopedic Surgery Clayton Vazquez MD [address] [place] [address] 08/08/2023 Imaging Radiology 08/30/2023 Office Visit Gastroenterology Lamar Tatum CRNP [address] [place] [address] 09/30/2023 Office Visit Hematology Oncology Jennifer Ramires MD [address] [place] [address] 10/08/2023 Procedure Only Urology Frank Peraza MD [address] [place] [address] [place] [address] 10/11/2023 Office Visit Internal Medicine Joaquin Snider PA-C [address] [place] [address] 06/11/2024 Office Visit Ophthalmology Cody Gonzalez DO [address] [place] [address] Health Maintenance Due Date Last [...] Additional history exists CKD PHOS USE SMARTSET 12392 01/28/202401/03, 07/26/2022, 12/05/2021, Additional history exists DIABETES-FOOT EXAM 03/06/2024 03/06/2023, 0 01/03/2022, 03/02/2021, Additional history exists Albumin/Creatinine Ratio 07/12/2024 023, 10/01/2022, 09/11/2021, Additional history exists CKD HGB USE SMARTSET 05288 07/24/202407/24, 07/12/2023, 07/12/2023, Additional history exists COLONOSCOPY-EVERY [...] this encounter Medical Devices Implanted Type Area Citizen Participation Specialist Device Identifier Shelf Expiration Date Model / Serial / Lot Clareon Iol Aspheric Hydrophobic Acrylic Iol Implanted:Qty: 1 on 04/23/2023 by Cody Gonzalez DO at OR [facility] Lens Left: Eye 11/12/2025 CNA0T0 / [id number] / Viatorr Tips Endoprosthesis 8-10 Mm X 8cm / 2cm Implanted:Qty: 1 on 10/07/2020 by Go Alvarado MD at [facility] Right: Abdomen 03/03/2023 [id number] / / [id number] Description:Viatorr TIPS End oprosthesis 8-10 mm x 8cm / 2cm, Manufactored by [employer] Syr Pf 2ml Embospheres 100-300 - [id number] Implanted:Qty: 1 on 04/18/2021 by Kevin Lim DO at OR [facility] Left: Abdomen [employer] [id number] 11/25/2023 S220GH / / [id number] -[id number] Syr Pf 2ml Embospheres 100-300 - [id number] Implanted:Qty: 1 on 03/28/2022 at [facility] [employer] [id number] 08/31/2024 S220GH / / [id number] -[id number] Clareon Iol Aspheric Hydrophobic Acrylic Iol Implanted:Qty: 1 on 04/02/2023 by Cody Gonzalez DO at OR [facility] Right: Eye JAZMIN 11/12/2025 CNA0T0 / [id number] / documented as of this encounter [...] study not interpreted or resulted by a [facility] or [facility] contracted radiologist. Clayton Vazquez MD RAD MRI-MRA documented in this encounter Advance Directives Documents on File Type Date Recorded Patient Medical Record Technician Expl anation Advance Directives and Living Will 12/11/2022 ADVANCE DIRECTIVE / LIVING WILL LIVING WILL Power of Account Support Specialist 12/11/2022 POWER OF A TTORNEY Latest [...] the patient have Health Care Power of Account Support Specialist? No Full Code 07/22/2014 9:56 PM 07/24/2014 8:18 PM This order reflects the patients wishes and were consensually agreed upon. Question Answer Comments Discussion of Advance Directives occurred with: Patient Does the patient have a Living Will? No Does the patient have Health Care Power of Account Support Specialist? No Care Teams Car Groomer Relationship Specialty Start Date End Date Francisco Cisse MD [address] [place] [address] PCP - General Internal Medicine 09/04/21 documented as of this encounter
--- OUTSIDE RECORDS SUMMARY | 2023-11-26 12:42 | External Medical Summary | Summary of Care ---
Author Name Unknown Organization [facility] Address [address] [place] [place] [address] Phone [phone] Care Team Providers Care Siphoner Name Role Phone Francisco Cisse MD Primary Care Provider + Encounter Details Date Type Department Care Team Description 06/21/2023 Orders Only Orthopaedics, [address] [phone] Clayton Vazquez MD [address] [place] [address] [phone] Allergies No known active allergiesdocumented as of [...] mRNA, LNP-s, No Pre serve, 2-Dose Series ([employer] [place]) 03/08/2021,02/15/2021 HepA Inact/HepB Recomb>=18yrs old 12/04/2019,04/2019,05/20/2019 11/19/2019 PPD 06/18/2017, 3,01/09/2012,06/2011 Pneumococcal Conjugate Vacc, 13 Valent (Prevnar) 05/01/2017 Pneumococcal Polysaccharide PPV23 (Pneumovax) 08/28/2022,10/25/2015,07/14/2012 Season Influenza, Quad, PF, Adjuvanted, 65+ Yrs, IM (FLUAD) 10/07/2020(Deferred: Patient Refused - pt says he already had his shot last month at [facility] [employer] Lyons [employer] Mckinley Cobian made [...] Visit Orthopedic Surgery Clayton Vazquez MD [address] [place] [address] 08/08/2023 Imaging Radiology 08/30/2023 Office Visit Gastroenterology Lamar Tatum CRNP [address] [place] [address] 09/30/2023 Office Visit Hematology Oncology Jennifer Ramires MD [address] [place] [address] 10/08/2023 Procedure Only Urology Frank Peraza MD [address] [place] [address] [place] [address] 10/11/2023 Office Visit Internal Medicine Joaquin Snider PA-C [address] [place] [address] 06/11/2024 Office Visit Ophthalmology Cody Gonzalez DO [address] [place] [address] Health Maintenance Due Date Last [...] Additional history exists CKD PHOS USE SMARTSET 17138 01/28/202401/03, 07/26/2022, 12/05/2021, Additional history exists DIABETES-FOOT EXAM 03/06/2024 03/06/2023, 0 01/03/2022, 03/02/2021, Additional history exists Albumin/Creatinine Ratio 07/12/2024 023, 10/01/2022, 09/11/2021, Additional history exists CKD HGB USE SMARTSET 56327 07/24/202407/24, 07/12/2023, 07/12/2023, Additional history exists COLONOSCOPY-EVERY [...] this encounter Medical Devices Implanted Type Area Cask Maker Device Identifier Shelf Expiration Date Model / Serial / Lot Clareon Iol Aspheric Hydrophobic Acrylic Iol Implanted:Qty: 1 on 04/23/2023 by Cody Gonzalez DO at OR [facility] Lens Left: Eye 11/12/2025 CNA0T0 / [id number] / Viatorr Tips Endoprosthesis 8-10 Mm X 8cm / 2cm Implanted:Qty: 1 on 10/07/2020 by Go Alvarado MD at [facility] Right: Abdomen 03/03/2023 [id number] / / [id number] Description:Viatorr TIPS End oprosthesis 8-10 mm x 8cm / 2cm, Manufactored by [employer] Syr Pf 2ml Embospheres 100-300 - [id number] Implanted:Qty: 1 on 04/18/2021 by Kevin Lim DO at OR [facility] Left: Abdomen [employer] [id number] 11/25/2023 S220GH / / [id number] Syr Pf 2ml Embospheres 100-300 - [id number] Implanted:Qty: 1 on 03/28/2022 at [facility] [employer] [id number] 08/31/2024 S220GH / / [id number] Clareon Iol Aspheric Hydrophobic Acrylic Iol Implanted:Qty: 1 on 04/02/2023 by Cody Gonzalez DO at OR [facility] Right: Eye JAZMIN 11/12/2025 CNA0T0 / [id number] / documented as of this encounter [...] study not interpreted or resulted by a [facility] or [facility] contracted radiologist. 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 No Full Code 07/22/2014 9:56 PM 07/24/2014 8:18 PM This order reflects the patients wishes and were consensually agreed upon. Question Answer Comments Discussion of Advance Directives occurred with: Patient Does the patient have a Living Will? No Does the patient have Health Care Power of Probation Counselor? No Care Teams Siphoner Relationship Specialty Start Date End Date Francisco Cisse MD [address] [place] [address] PCP - General Internal Medicine 09/04/21 documented as of this encounter
--- OUTSIDE RECORDS SUMMARY | 2023-11-26 12:42 | External Medical Summary | Summary of Care ---
Author Name Unknown Organization [facility] Address [address] [place] [facility] [place] [address] Phone [phone] Care Team Providers Care Escape Wheel Tooth Cutter Name Role Phone Francisco Cisse MD Primary Care Provider + Encounter Details Date Type Department Care Team Description 07/23/2023 Orders Only Orthopaedics, [address] [phone] Clayton Vazquez MD [address] [place] [address] [phone] Allergies No known active allergiesdocumented as of [...] A1c goal of less than 7.0% ([facility]) Use to test blood sugars [...] A1c goal of less than 7.0% ([facility]) Inject 20 Units under the skin daily with dinner. 15 mL 3 06/05/2023 Active Ondansetron HCl 4 MG Oral TabletIndications:N ausea without vomiting,Liver cell carcinoma ([facility]),GAVE (gastric antral vascular ectasia) Take 1 Tablet by mouth every 8 hours as needed for Nausea. 30 Tablet 0 06/12/2023 Active Additional Information Patient not taking.Reported on 07/12/2023 Baclofen 5 MG Oral Tablet (Lioresal)Indicatio ns:Other closed fracture of twelfth thoracic vertebra, initial encounter ([facility]) Take 1 Tablet by mouth in the morning and 1 Tablet in the evening. 30 Tablet 1 07/12/2023 Active oxyCODONE HCl 5 MG Oral Tablet (Oxy IR)Indications:Othe r closed fracture of twelfth thoracic vertebra, initial encounter ([facility]) Take 1 Tablet by mouth [...] mRNA, LNP-s, No Pre serve, 2-Dose Series ([employer]) 03/08/2021,02/15/2021 HepA Inact/HepB Recomb>=18yrs old 12/04/2019,04/2019,05/20/2019 11/19/2019 PPD 06/18/2017, 3,01/09/2012,0306/2011 Pneumococcal Conjugate Vacc, 13 Valent (Prevnar) 05/01/2017 Pneumococcal Polysaccharide PPV23 (Pneumovax) 08/28/2022,10/25/2015,07/14/2012 Season Influenza, Quad, PF, Adjuvanted, 65+ Yrs, IM (FLUAD) 10/07/2020(Deferred: Patient Refused - pt says he already had his shot last month at [facility] [employer] Mckinley [...] Office Visit [place] [address] [place] [address] 08/08/2023 Imaging Radiology 08/30/2023 Office Visit Gastroenterology Lamar Tatum CRNP [address] [place] [address] 09/30/2023 Office Visit Hematology Oncology Jennifer Ramires MD [address] [place] [address] 10/08/2023 Procedure Only Urology Frank Peraza MD [address] [place] [address] [place] [phone] 10/11/2023 Office Visit Internal Medicine Joaquin Snider PA-C [address] [place] [place] [address] 06/11/2024 Office Visit Ophthalmology Cody Gonzalez DO [...] Additional history exists CKD PHOS USE SMARTSET 45150 01/28/202401/03, 07/26/2022, 12/05/2021, Additional history exists DIABETES-FOOT EXAM 03/06/2024 03/06/2023, 0 01/03/2022, 03/02/2021, Additional history exists Albumin/Creatinine Ratio 07/12/2024 023, 10/01/2022, 09/11/2021, Additional history exists CKD HGB USE SMARTSET 88889 07/24/202407/24, 07/12/2023, 07/12/2023, Additional history exists COLONOSCOPY-EVERY [...] this encounter Medical Devices Implanted Type Area Cryogenics Engineer Device Identifier Shelf Expiration Date Model / Serial / Lot Clareon Iol Aspheric Hydrophobic Acrylic Iol Implanted:Qty: 1 on 04/23/2023 by Cody Gonzalez DO at OR [facility] Lens Left: Eye 11/12/2025 CNA0T0 / [id number] / Viatorr Tips Endoprosthesis 8-10 Mm X 8cm / 2cm Implanted:Qty: 1 on 10/07/2020 by Go Alvarado MD at [facility] Right: Abdomen 03/03/2023 [id number] / / [id number] Description:Viatorr TIPS End oprosthesis 8-10 mm x 8cm / 2cm, Manufactored by [employer] Syr Pf 2ml Embospheres 100-300 - [id number] Implanted:Qty: 1 on 04/18/2021 by Kevin Lim DO at OR [facility] Left: Abdomen [employer] [id number] 11/25/2023 S220GH / / [id number] -[id number] Syr Pf 2ml Embospheres 100-300 - [id number] Implanted:Qty: 1 on 03/28/2022 at [facility] [employer] [id number] 08/31/2024 S220GH / / [id number] -5 Clareon Iol Aspheric Hydrophobic Acrylic Iol Implanted:Qty: 1 on 04/02/2023 by Cody Gonzalez DO at OR [facility] Right: Eye JAZMIN 11/12/2025 CNA0T0 / [id number] / documented as of this encounter Procedures Procedure Name Priority Date/Time Associated Diagnosis Comments RADIOLOGY EXAM - CT (IMAGES ONLY, NO REPORT) Routine 07/23/2023 8:30 AM EDT documented in this encounter Results * RADIOLOGY EXAM - CT (IMAGES ONLY, NO REPORT) (07/23/2023 8:30 AM EDT) 07/23/2023 8:28 AM EDT Narrative Scheduling, Silent - 07/31/2023 9:11 AM EDT This is an imaging study not interpreted or resulted by a [facility] or [facility] contracted radiologist. Clayton Vazquez MD RAD CT documented in this encounter Advance Directives Documents on File Type Date Recorded Patient Dough Molder Hand Expl anation Advance Directives and Living Will 12/11/2022 ADVANCE DIRECTIVE / LIVING WILL LIVING WILL Power of Casing Wringer Operator 12/11/2022 POWER OF A TTORNEY Latest [...] the patient have Health Care Power of Casing Wringer Operator? No Full Code 07/22/2014 9:56 PM 07/24/2014 8:18 PM This order reflects the patients wishes and were consensually agreed upon. Question Answer Comments Discussion of Advance Directives occurred with: Patient Does the patient have a Living Will? No Does the patient have Health Care Power of Casing Wringer Operator? No Care Teams Escape Wheel Tooth Cutter Relationship Specialty Start Date End Date Francisco Cisse MD [address] [place] [address], [place] [address] PCP - General Internal Medicine 09/04/21 documented as of this encounter
--- OUTSIDE RECORDS SUMMARY | 2023-11-26 12:42 | External Medical Summary | Summary of Care ---
Author Name Unknown Organization [facility] Address [address] [place] [facility] [place] [address] Phone [phone] Care Team Providers Care Cement Crusher Operator Name Role Phone Francisco Cisse MD Primary Care Provider + Encounter Details Date Type Department Care Team Description 06/16/2023 Orders Only Orthopaedics, [address] [phone] Clayton Vazquez MD [address] [place] [address] [phone] Allergies No known active allergiesdocumented as of [...] than 7.0% ([facility]) Use to test blood sugars 3 [...] mRNA, LNP-s, No Pre serve, 2-Dose Series ([employer]) 03/08/2021,02/15/2021 HepA Inact/HepB Recomb>=18yrs old 12/04/2019,04/2019,05/20/2019 11/19/2019 PPD 06/18/2017, 3,01/09/2012,06/2011 Pneumococcal Conjugate Vacc, 13 Valent (Prevnar) 05/01/2017 Pneumococcal Polysaccharide PPV23 (Pneumovax) 08/28/2022,10/25/2015,07/14/2012 Season Influenza, Quad, PF, Adjuvanted, 65+ Yrs, IM (FLUAD) 10/07/2020(Deferred: Patient Refused - pt says he already had his shot last month at [facility] [employer] Lyons [employer] Mckinley Cobian made [...] Surgery Clayton Vazquez MD [address] [place] [address] 08/08/2023 Imaging Radiology 08/30/2023 Office Visit Gastroenterology Lamar Tatum CRNP [address] [place] [address] 09/30/2023 Office Visit Hematology Oncology Jennifer Ramires MD [address] [place] [address] 10/08/2023 Procedure Only Urology Frank Peraza MD [address] [place] [address] [place] [address] 10/11/2023 Office Visit Internal Medicine Joaquin Snider PA-C [address] [place] [address] 06/11/2024 Office Visit Ophthalmology Cody Gonzalez DO [address] [place] [address] Health Maintenance Due Date Last [...] Additional history exists CKD PHOS USE SMARTSET 42310 01/28/202401/03, 07/26/2022, 12/05/2021, Additional history exists DIABETES-FOOT EXAM 03/06/2024 03/06/2023, 0 01/03/2022, 03/02/2021, Additional history exists Albumin/Creatinine Ratio 07/12/2024 023, 10/01/2022, 09/11/2021, Additional history exists CKD HGB USE SMARTSET 83214 07/24/202407/24, 07/12/2023, 07/12/2023, Additional history exists COLONOSCOPY-EVERY [...] this encounter Medical Devices Implanted Type Area Client Services Vice President Device Identifier Shelf Expiration Date Model / Serial / Lot Clareon Iol Aspheric Hydrophobic Acrylic Iol Implanted:Qty: 1 on 04/23/2023 by Cody Gonzalez DO at OR [facility] Lens Left: Eye 11/12/2025 CNA0T0 / [id number] / Viatorr Tips Endoprosthesis 8-10 Mm X 8cm / 2cm Implanted:Qty: 1 on 10/07/2020 by Go Alvarado MD at [facility] Right: Abdomen 03/03/2023 [id number] / / [id number] Description:Viatorr TIPS End oprosthesis 8-10 mm x 8cm / 2cm, Manufactored by [employer] Syr Pf 2ml Embospheres 100-300 - [id number] Implanted:Qty: 1 on 04/18/2021 by Kevin Lim DO at OR [facility] Left: Abdomen [employer] [id number] 11/25/2023 S220GH / / [id number] -[id number] Syr Pf 2ml Embospheres 100-300 - [id number] Implanted:Qty: 1 on 03/28/2022 at [facility] [employer] [id number] 08/31/2024 S220GH / / [id number] -5 Clareon Iol Aspheric Hydrophobic Acrylic Iol Implanted:Qty: 1 on 04/02/2023 by Cody Gonzalez DO at OR [facility] Right: Eye JAZMIN 11/12/2025 CNA0T0 / [id number] / documented as of this encounter [...] not interpreted or resulted by a [facility] or [facility] contracted radiologist. Clayton Vazquez MD RAD MRI-MRA documented in this encounter Advance Directives Documents on File Type Date Recorded Patient Behavioral Health Specialist Expl anation Advance Directives and Living Will 12/11/2022 ADVANCE DIRECTIVE / LIVING WILL LIVING WILL Power of Site Head 12/11/2022 POWER OF A TTORNEY Latest Code [...] the patient have Health Care Power of Site Head? No Full Code 07/22/2014 9:56 PM 07/24/2014 8:18 PM This order reflects the patients wishes and were consensually agreed upon. Question Answer Comments Discussion of Advance Directives occurred with: Patient Does the patient have a Living Will? No Does the patient have Health Care Power of Site Head? No Care Teams Cement Crusher Operator Relationship Specialty Start Date End Date Francisco Cisse MD [address] [place] [address] PCP - General Internal Medicine 09/04/21 documented as of this encounter
--- OUTSIDE RECORDS SUMMARY | 2023-11-26 12:42 | External Medical Summary | Summary of Care ---
Author Name Unknown Organization [facility] Address [address] [place] [place] [place] [place] [address] Phone [phone] Care Team Providers Care Near East Archeology Professor Name Role Phone Francisco Cisse MD Primary Care Provider + Encounter Details Date Type Department Care Team Description 06/14/2023 Orders Only Orthopaedics, [address] [phone] Clayton Vazquez MD [address] [place] [address] [phone] Allergies No known active allergiesdocumented as of [...] LNP-s, No Pre serve, 2-Dose Series ([employer]) 03/08/2021,02/15/2021 HepA Inact/HepB Recomb>=18yrs old 12/04/2019,04/2019,05/20/2019 11/19/2019 PPD 06/18/2017, 3,01/09/2012,06/2011 Pneumococcal Conjugate Vacc, 13 Valent (Prevnar) 05/01/2017 Pneumococcal Polysaccharide PPV23 (Pneumovax) 08/28/2022,10/25/2015,07/14/2012 Season Influenza, Quad, PF, Adjuvanted, 65+ Yrs, IM (FLUAD) 10/07/2020(Deferred: Patient Refused - pt says he already had his shot last month at [facility] [employer] Mckinley Cobian [...] Visit Orthopedic Surgery Clayton Vazquez MD [address] [facility] [place] [address] 08/08/2023 Imaging Radiology 08/30/2023 Office Visit Gastroenterology Lamar Tatum CRNP [address] [place] [address] 09/30/2023 Office Visit Hematology Oncology Jennifer Ramires MD [address] [place] [address] 10/08/2023 Procedure Only Urology Frank Peraza MD [address] [place] [address] [place] [address] 10/11/2023 Office Visit Internal Medicine Joaquin Snider PA-C [address] [place] [address] 06/11/2024 Office Visit Ophthalmology Cody Gonzalez DO [address] [place] [address] Health Maintenance Due Date Last [...] Additional history exists CKD PHOS USE SMARTSET 14403 01/28/202401/03, 07/26/2022, 12/05/2021, Additional history exists DIABETES-FOOT EXAM 03/06/2024 03/06/2023, 0 01/03/2022, 03/02/2021, Additional history exists Albumin/Creatinine Ratio 07/12/2024 023, 10/01/2022, 09/11/2021, Additional history exists CKD HGB USE SMARTSET 06835 07/24/202407/24, 07/12/2023, 07/12/2023, Additional history exists COLONOSCOPY-EVERY [...] this encounter Medical Devices Implanted Type Area Cabin Service Agent Device Identifier Shelf Expiration Date Model / Serial / Lot Clareon Iol Aspheric Hydrophobic Acrylic Iol Implanted:Qty: 1 on 04/23/2023 by Cody Gonzalez DO at OR [facility] Lens Left: Eye 11/12/2025 CNA0T0 / [id number] / Viatorr Tips Endoprosthesis 8-10 Mm X 8cm / 2cm Implanted:Qty: 1 on 10/07/2020 by Go Alvarado MD at [facility] Right: Abdomen 03/03/2023 [id number] / / [id number] Description:Viatorr TIPS End oprosthesis 8-10 mm x 8cm / 2cm, Manufactored by [employer]. Syr Pf 2ml Embospheres 100-300 - [id number] Implanted:Qty: 1 on 04/18/2021 by Kevin Lim DO at OR [facility] Left: Abdomen [employer] [id number] 11/25/2023 S220GH / / [id number] -[id number] Syr Pf 2ml Embospheres 100-300 - [id number] Implanted:Qty: 1 on 03/28/2022 at [facility] [employer] [id number] 08/31/2024 S220GH / / [id number] -5 Clareon Iol Aspheric Hydrophobic Acrylic Iol Implanted:Qty: 1 on 04/02/2023 by Cody Gonzalez DO at OR [facility] Right: Eye JAZMIN 11/12/2025 CNA0T0 / [id number] / documented as of this encounter [...] study not interpreted [facility] or [facility] contracted radiologist. Clayton Vazquez MD RADIOLOGY (RAD G ENERAL) documented in this encounter Advance Directives Documents on File Type Date Recorded Patient Cardio Tech Expl anation Advance Directives and Living Will 12/11/2022 ADVANCE DIRECTIVE / LIVING WILL LIVING WILL Power of Stave Machine Tender 12/11/2022 POWER OF A TTORNEY Latest Code [...] the patient have Health Care Power of Stave Machine Tender? No Full Code 07/22/2014 9:56 PM 07/24/2014 8:18 PM This order reflects the patients wishes and were consensually agreed upon. Question Answer Comments Discussion of Advance Directives occurred with: Patient Does the patient have a Living Will? No Does the patient have Health Care Power of Stave Machine Tender? No Care Teams Near East Archeology Professor Relationship Specialty Start Date End Date Francisco Cisse MD [address] [place] [address] PCP - General Internal Medicine 09/04/21 documented as of this encounter
--- OUTSIDE RECORDS SUMMARY | 2023-11-26 12:42 | External Medical Summary | Summary of Care ---
Author Name Unknown Organization [facility] Address [address] [place] [place] [place] [place] [address] Phone [phone] Care Team Providers Care Safety Representative Name Role Phone Francisco Cisse MD Primary Care Provider + Encounter Details Date Type Department Care Team Description 07/10/2023 Orders Only Orthopaedics, [address] [phone] Clayton Vazquez MD [address] [place] [address] [phone] Allergies No known active allergiesdocumented as of [...] mRNA, LNP-s, No Pre serve, 2-Dose Series ([employer]) 03/08/2021,02/15/2021 HepA Inact/HepB Recomb>=18yrs old 12/04/2019,04/2019,05/20/2019 11/19/2019 PPD 06/18/2017, 3,01/09/2012,06/2011 Pneumococcal Conjugate Vacc, 13 Valent (Prevnar) 05/01/2017 Pneumococcal Polysaccharide PPV23 (Pneumovax) 08/28/2022,10/25/2015,07/14/2012 Season Influenza, Quad, PF, Adjuvanted, 65+ Yrs, IM (FLUAD) 10/07/2020(Deferred: Patient Refused - pt says he already had his shot last month at [facility] [employer]ons [employer] Mckinley Cobian [...] Visit Orthopedic Surgery Clayton Vazquez MD [address] [place] [address] 08/08/2023 Imaging Radiology 08/30/2023 Office Visit Gastroenterology Lamar Tatum CRNP [address] [place] [address] 09/30/2023 Office Visit Hematology Oncology Jennifer Ramires MD [address] [place] [address] 10/08/2023 Procedure Only Urology Frank Peraza MD [address] [place] [address] [place] [address] 10/11/2023 Office Visit Internal Medicine Joaquin Snider PA-C [address] [place] [address] 06/11/2024 Office Visit Ophthalmology Cody Gonzalez DO [address] [place] [address] Health Maintenance Due Date Last [...] Additional history exists CKD PHOS USE SMARTSET 78916 01/28/202401/03, 07/26/2022, 12/05/2021, Additional history exists DIABETES-FOOT EXAM 03/06/2024 03/06/2023, 0 01/03/2022, 03/02/2021, Additional history exists Albumin/Creatinine Ratio 07/12/2024 023, 10/01/2022, 09/11/2021, Additional history exists CKD HGB USE SMARTSET 65560 07/24/202407/24, 07/12/2023, 07/12/2023, Additional history exists COLONOSCOPY-EVERY [...] this encounter Medical Devices Implanted Type Area Disabilities Services Officer Device Identifier Shelf Expiration Date Model / Serial / Lot Clareon Iol Aspheric Hydrophobic Acrylic Iol Implanted:Qty: 1 on 04/23/2023 by Cody Gonzalez DO at OR [facility] Lens Left: Eye 11/12/2025 CNA0T0 / [id number] 136 / Viatorr Tips Endoprosthesis 8-10 Mm X 8cm / 2cm Implanted:Qty: 1 on 10/07/2020 by Go Alvarado MD at [facility] Right: Abdomen 03/03/2023 [id number] / / [id number] Description:Viatorr TIPS End oprosthesis 8-10 mm x 8cm / 2cm, Manufactored by [employer] Syr Pf 2ml Embospheres 100-300 - [id number] Implanted:Qty: 1 on 04/18/2021 by Kevin Lim DO at OR [facility] Left: Abdomen [employer] [id number] 11/25/2023 S220GH / / [id number] -[id number] Syr Pf 2ml Embospheres 100-300 - [id number] Implanted:Qty: 1 on 03/28/2022 at [facility] [employer] [id number] 08/31/2024 S220GH / / [id number] -5 Clareon Iol Aspheric Hydrophobic Acrylic Iol Implanted:Qty: 1 on 04/02/2023 by Cody Gonzalez DO at OR [facility] Right: Eye JAZMIN 11/12/2025 CNA0T0 / [id number] / documented as of this encounter [...] study not interpreted or resulted by a [facility] or [facility] contracted radiologist. Clayton Vazquez MD RAD CT documented in this encounter Advance Directives Documents on File Type Date Recorded Patient Manager Technical Sales Expl anation Advance Directives and Living Will 12/11/2022 ADVANCE DIRECTIVE / LIVING WILL LIVING WILL Power of Cyber Ops Planner 12/11/2022 POWER OF A TTORNEY Latest Code [...] the patient have Health Care Power of Cyber Ops Planner? No Full Code 07/22/2014 9:56 PM 07/24/2014 8:18 PM This order reflects the patients wishes and were consensually agreed upon. Question Answer Comments Discussion of Advance Directives occurred with: Patient Does the patient have a Living Will? No Does the patient have Health Care Power of Cyber Ops Planner? No Care Teams Safety Representative Relationship Specialty Start Date End Date Francisco Cisse MD [address] [place] [address] PCP - General Internal Medicine 09/04/21 documented as of this encounter
--- OUTSIDE RECORDS SUMMARY | 2023-11-26 12:42 | External Medical Summary | Summary of Care ---
Author Name Unknown Organization [facility] Address [address] [place] [address] Phone [phone] Care Team Providers Care Rope Silica Machine Operator Name Role Phone Francisco Cisse MD Primary Care Provider + Encounter Details Date Type Department Care Team Description 06/14/2023 Orders Only Orthopaedics, [address] [phone] Clayton Vazquez MD [address] [place] [address] [phone] Allergies No known active allergiesdocumented as of [...] mRNA, LNP-s, No Pre serve, 2-Dose Series ([email or web address]) 03/08/2021,02/15/2021 HepA Inact/HepB Recomb>=18yrs old 12/04/2019,04/2019,05/20/2019 11/19/2019 PPD 06/18/2017, 3,01/09/2012,06/2011 Pneumococcal Conjugate Vacc, 13 Valent (Prevnar) 05/01/2017 Pneumococcal Polysaccharide PPV23 (Pneumovax) 08/28/2022,10/25/2015,07/14/2012 Season Influenza, Quad, PF, Adjuvanted, 65+ Yrs, IM (FLUAD) 10/07/2020(Deferred: Patient Refused - pt says he already had his shot last month at [facility] Handy Lyons and Mckinley Cobian made [...] Surgery Clayton Vazquez MD [address] [place] [address] 08/08/2023 Imaging Radiology 08/30/2023 Office Visit Gastroenterology Lamar Tatum CRNP [address] [place] [address] 09/30/2023 Office Visit Hematology Oncology Jennifer Ramires MD [address] [place] [address] 10/08/2023 Procedure Only Urology Frank Peraza MD [address] [place] [address] [place] [address] 10/11/2023 Office Visit Internal Medicine Joaquin Snider PA-C [address] [facility] [address] 06/11/2024 Office Visit Ophthalmology Cody Gonzalez DO [address] [place] [address] Health Maintenance Due Date Last [...] Additional history exists CKD PHOS USE SMARTSET 47802 01/28/202401/03, 07/26/2022, 12/05/2021, Additional history exists DIABETES-FOOT EXAM 03/06/2024 03/06/2023, 0 01/03/2022, 03/02/2021, Additional history exists Albumin/Creatinine Ratio 07/12/2024 023, 10/01/2022, 09/11/2021, Additional history exists CKD HGB USE SMARTSET 89516 07/24/202407/24, 07/12/2023, 07/12/2023, Additional history exists COLONOSCOPY-EVERY [...] this encounter Medical Devices Implanted Type Area Hairspring I Inspector Device Identifier Shelf Expiration Date Model / Serial / Lot Clareon Iol Aspheric Hydrophobic Acrylic Iol Implanted:Qty: 1 on 04/23/2023 by Cody Gonzalez DO at OR [facility] Lens Left: Eye 11/12/2025 CNA0T0 / [id number] / Viatorr Tips Endoprosthesis 8-10 Mm X 8cm / 2cm Implanted:Qty: 1 on 10/07/2020 by Go Alvarado MD at [facility] Right: Abdomen 03/03/2023 [id number] / / [id number] Description:Viatorr TIPS End oprosthesis 8-10 mm x 8cm / 2cm, Manufactored by [employer] Syr Pf 2ml Embospheres 100-300 - [id number] Implanted:Qty: 1 on 04/18/2021 by Kevin Lim DO at OR [facility] Left: Abdomen [employer] [id number] 11/25/2023 S220GH / / [id number] Syr Pf 2ml Embospheres 100-300 - [id number] Implanted:Qty: 1 on 03/28/2022 at [facility] [employer] [id number] 08/31/2024 S220GH / / [id number] Clareon Iol Aspheric Hydrophobic Acrylic Iol Implanted:Qty: 1 on 04/02/2023 by Cody Gonzalez DO at OR [facility] Right: Eye JAZMIN 11/12/2025 CNA0T0 / [id number] / documented as of this encounter [...] study not interpreted or resulted by a [facility] or [facility] contracted radiologist. Clayton Vazquez MD RAD CT documented in this encounter Advance Directives Documents on File Type Date Recorded Patient Senior Accounting Specialist Expl anation Advance Directives and Living Will 12/11/2022 ADVANCE DIRECTIVE / LIVING WILL LIVING WILL Power of Fisheries Biologist 12/11/2022 POWER OF A TTORNEY Latest Code [...] the patient have Health Care Power of Fisheries Biologist? No Full Code 07/22/2014 9:56 PM 07/24/2014 8:18 PM This order reflects the patients wishes and were consensually agreed upon. Question Answer Comments Discussion of Advance Directives occurred with: Patient Does the patient have a Living Will? No Does the patient have Health Care Power of Fisheries Biologist? No Care Teams Rope Silica Machine Operator Relationship Specialty Start Date End Date Francisco Cisse MD [address] [place] [id number] PCP - General Internal Medicine 09/04/21 documented as of this encounter
--- OUTSIDE RECORDS SUMMARY | 2023-11-26 12:42 | External Medical Summary | Summary of Care ---
Author Name Unknown Organization [facility] Address [address] [facility] [place] [address] Phone [phone] Care Team Providers Care Environmental Field Professional Name Role Phone Francisco Cisse MD Primary Care Provider + Encounter Details Date Type Department Care Team Description 07/23/2023 Hospital Encounter Radiology Film File [address] [place] [address] Allergies No known active allergiesdocumented [...] than 7.0% ([facility]) Inject 20 Units under the skin daily with dinner. 15 mL 3 06/05/2023 Active Ondansetron HCl 4 MG Oral TabletIndications:N ausea without vomiting,Liver cell carcinoma ([facility]),GAVE (gastric antral vascular ectasia) Take 1 Tablet [...] mRNA, LNP-s, No Pre serve, 2-Dose Series ([employer]) 03/08/2021,02/15/2021 HepA Inact/HepB Recomb>=18yrs old 12/04/2019,04/2019,05/20/2019 11/19/2019 PPD 06/18/2017, 3,01/09/2012,06/2011 Pneumococcal Conjugate Vacc, 13 Valent (Prevnar) 05/01/2017 Pneumococcal Polysaccharide PPV23 (Pneumovax) 08/28/2022,10/25/2015,07/14/2012 Season Influenza, Quad, PF, Adjuvanted, 65+ Yrs, IM (FLUAD) 10/07/2020(Deferred: Patient Refused - pt says he already had his shot last month at [facility] [employer]y Lyons and Mckinley [...] Visit Orthopedic Surgery Clayton Vazquez MD [address] [place], [place] [phone] 08/08/2023 Imaging Radiology 08/30/2023 Office Visit Gastroenterology Lamar Tatum CRNP [address] [place] [address] 09/30/2023 Office Visit Hematology Oncology [facility] [address] [facility] [address] 10/08/2023 Procedure Only Urology Frank Peraza MD [address] [place] [address] [place] [address] 10/11/2023 Office Visit Internal Medicine [facility] [address] [facility] [address] 06/11/2024 Office Visit Ophthalmology Cody Gonzalez DO [...] Additional history exists CKD PHOS USE SMARTSET 28663 01/28/202401/03, 07/26/2022, 12/05/2021, Additional history exists DIABETES-FOOT EXAM 03/06/2024 03/06/2023, 0 01/03/2022, 03/02/2021, Additional history exists Albumin/Creatinine Ratio 07/12/2024 023, 10/01/2022, 09/11/2021, Additional history exists CKD HGB USE SMARTSET 26440 07/24/202407/24, 07/12/2023, 07/12/2023, Additional history exists COLONOSCOPY-EVERY [...] this encounter Medical Devices Implanted Type Area Spinning Machine Tender Device Identifier Shelf Expiration Date Model / Serial / Lot Clareon Iol Aspheric Hydrophobic Acrylic Iol Implanted:Qty: 1 on 04/23/2023 by Cody Gonzalez DO at OR [facility] Lens Left: Eye 11/12/2025 CNA0T0 / [id number] / Viatorr Tips Endoprosthesis 8-10 Mm X 8cm / 2cm Implanted:Qty: 1 on 10/07/2020 by Go Alvarado MD at [facility] Right: Abdomen 03/03/2023 [id number] / / [id number] Description:Viatorr TIPS End oprosthesis 8-10 mm x 8cm / 2cm, Manufactored by [employer] Syr Pf 2ml Embospheres 100-300 - [id number] Implanted:Qty: 1 on 04/18/2021 by Kevin Lim DO at OR [facility] Left: Abdomen [employer] [id number] 11/25/2023 S220GH / / [id number] Syr Pf 2ml Embospheres 100-300 - [id number] Implanted:Qty: 1 on 03/28/2022 at [facility] [employer] [id number] 08/31/2024 S220GH / / [id number] -[id number] Clareon Iol Aspheric Hydrophobic Acrylic Iol Implanted:Qty: 1 on 04/02/2023 by Cody Gonzalez DO at OR [facility] Right: Eye JAZMIN 11/12/2025 CNA0T0 / [id number] / documented as of this encounter [...] interpreted or resulted by a [facility] or [facility] contracted radiologist. Clayton Vazquez MD RAD CT documented in this encounter Advance Directives Documents on File Type Date Recorded Patient Order Checker Expl anation Advance Directives and Living Will 12/11/2022 ADVANCE DIRECTIVE / LIVING WILL LIVING WILL Power of Park Landscape Architect 12/11/2022 POWER OF A TTORNEY Latest Code [...] the patient have Health Care Power of Park Landscape Architect? No Full Code 07/22/2014 9:56 PM 07/24/2014 8:18 PM This order reflects the patients wishes and were consensually agreed upon. Question Answer Comments Discussion of Advance Directives occurred with: Patient Does the patient have a Living Will? No Does the patient have Health Care Power of Park Landscape Architect? No Care Teams Environmental Field Professional Relationship Specialty Start Date End Date Francisco Cisse MD [address] [place] [address], [place] [address] PCP - General Internal Medicine 09/04/21 documented as of this encounter
--- OUTSIDE RECORDS SUMMARY | 2023-11-26 12:43 | External Medical Summary | Summary of Care ---
Author Name Unknown Organization [facility] [address] [facility] [address] Phone [phone] Care Team Providers Care Hospital Coordinator Name Role Phone Francisco Cisse MD Primary Care Provider + Reason for Visit * Reason Onset Date Comments FYI 07/24/2023 Advice 07/24/2023 Pre op Clearance case management 07/24/2023 Encounter Details Date Type Department Care Team Description 07/24/2023 Telephone General Internal Medicine [facility] [place] [address] [facility] [place] [address] Francisco Cisse MD [address] [place] [address] FYI (//); Advice (Pre op Clearance ); case... Allergies No known active allergiesdocumented as of this encounter (statuses as of 07/25/2023) Medications Medication Sig Dispensed Refills Start Date End Date Status Tylenol 325 MG Oral Capsule (Acetaminophen) Take 650 mg by mouth every 8 hours as needed for Pain (fever). 0 Active Allopurinol 100 MG Oral Tablet (Zyloprim)Indicatio ns:Gout of big toe Take 2 Tabs by mouth daily. 180 Tab 2 07/28/2021 Active OneTouch Verio In Vitro Strip (Glucose Blood)Indications:T ype 2 diabetes mellitus with hemoglobin A1c goal of less than 7.0% ([facility]) Use to test blood sugars [...] with dinner. 15 mL 3 06/05/2023 Active Furosemide 20 MG Oral Tablet (Lasix)Indications: Cirrhosis of liver with ascites, unspecified hepatic cirrhosis type (HCC) Take 2 Tablets by mouth in the morning. 60 Tablet 2 06/11/2023 Active Ondansetron HCl 4 MG Oral TabletIndications:N [...] as of this encounter (statuses as of 07/25/2023) Active Problems Problem Noted Date Closed T12 [...] as of this encounter (statuses as of 07/25/2023) Resolved Problems Problem Noted Date Resolved Date [...] as of this encounter (statuses as of 07/25/2023) Immunizations Name Administration Dates Next Due COVID-19 mRNA, LNP-s, No Pre serve, 2-Dose Series ([employer]) 03/08/2021,02/15/2021 HepA Inact/HepB Recomb>=18yrs old 12/04/2019,04/2019,05/20/2019 11/19/2019 PPD 06/18/2017, 3,01/09/2012,06/2011 Pneumococcal Conjugate Vacc, 13 Valent (Prevnar) 05/01/2017 Pneumococcal Polysaccharide PPV23 (Pneumovax) 08/28/2022,10/25/2015,07/14/2012 Season Influenza, Quad, PF, Adjuvanted, 65+ Yrs, IM (FLUAD) 10/07/2020(Deferred: Patient Refused - pt says he already had his shot last month at [facility] [employer] Lyons and Mckinley Cobian made [...] Miscellaneous Notes * Telephone Encounter - JEFF Mcacbe - 07/25/2023 9:51 AM EDT I recommend that he under spine surgery in [place]. Even with excellent medical management, his cirrhosis will likely decompensate and he should be medically managed in an IP setting by a cargo supervisor and recreation therapist perioperatively. * Telephone Encounter - Michelle Nash RN - 07/25/2023 9:20 AM EDT Called and spoke with patient regarding below. He is not having any chest pain, shortness of breath, COOK or swelling of the hands/abdomen/LE at present time. He has not received his oxygen from [facility] yet but he is aware of the recommendations from pulmonology. He will hold all supplements and NSAIDS as advised. He reports he is not currently using the repaglinide and will not resume this. He will only take 1/2 of his lantus the night prior to surgery. will send these recommendations to the patient as a message in [employer] as well. Dr. Tanna MELENDEZ. Please advise if you have any additional recommendations or if a preop appointment is required and I will update the patient as necessary. Thank you! * Telephone Encounter - Francisco Cisse MD - 07/25/2023 8:35 AM EDT Michelle, Can you please call Carlos. Sounds like he needs urgent surgery for his back pain and a fracture thatis consider unstable. He had a negative stress test this year. Is he having any cp, sob, cook or worsening edema? If not, then I think we need to proceed to surgery for unstable fracture. I would alsohave him: Stop all supplements now No nsaids I would hold repaglinide day of surgery and half lantus night prior to surgery 4. He should use oyxgen at night @ 2 L/Minute per pulm note Lamar MELENDEZ * Telephone Encounter - ESTELLE Verde - 07/24/2023 2:11 PM EDT Pt calling in regarding pre op clearance. Please contact back pt at [phone] regarding a pre op clearance appointment. Thank you. * Telephone Encounter - Brittany Suresh LPN - 07/24/2023 2:03 PM EDT Provider to address: message Reason for Call: NORA (//) Contact: Telephone Call Contact Type: Follow-up Outcome: [place] Sue [place] [facility] Said the patient needs a T10 to L2 fusion and he is scheduled on the. She is going to fax over the last office note and information. There are no available appts with Dr. Cises before the . Total Time including non face to face (minutes): 10 * Telephone Encounter - Francisco Cisse MD - 07/24/2023 1:20 PM EDT Adding him to the schedule for what procedure? Are they asking for a pre-op visit? He is very complex and would need a visit prior. * Telephone Encounter - ESTELLE Lozano - 07/24/2023 12:01 PM EDT Lyndsay is calling from [facility] in regards to adding him to the schedule on 07/30. No appointments for a pre-op between now and then, PT was just seen on 07/12. She is wondering if those notes could be used to fill out the pre- op forms. She is going to be faxing them over. documented in this encounter Plan of Treatment Upcoming Encounters Date Type Specialty Care Team Description 07/29/2023 Telemedicine Dermatology [place], Pharmacist Dermatology [address] [place] [address] 08/08/2023 Imaging Radiology 08/30/2023 Office Visit Gastroenterology Lamar Tatum CRNP [address] [place] [address] 09/30/2023 Office Visit Hematology Oncology [facility] [address] [facility] [id number] 10/08/2023 Procedure Only Urology Frank Peraza MD [address] [place] [address] [place] [address] 10/11/2023 Office Visit Internal Medicine Joaquin Snider PA-C [address] [facility] [place] [address] 06/11/2024 Office Visit Ophthalmology Cody Gonzalez, DO [address] [place] [address] Health Maintenance Due Date Last Done Comments [...] Additional history exists CKD PHOS USE SMARTSET 26660 01/28/202401/03, 07/26/2022, 12/05/2021, Additional history exists DIABETES-FOOT EXAM 03/06/2024 03/06/2023, 0 01/03/2022, 03/02/2021, Additional history exists Albumin/Creatinine Ratio 07/12/2024 023, 10/01/2022, 09/11/2021, Additional history exists CKD HGB USE SMARTSET 02516 07/24/202407/24, 07/12/2023, 07/12/2023, Additional history exists COLONOSCOPY-EVERY [...] this encounter Medical Devices Implanted Type Area Supervising Editor Trailer Device Identifier Shelf Expiration Date Model / Serial / Lot Clareon Iol Aspheric Hydrophobic Acrylic Iol Implanted:Qty: 1 on 04/23/2023 by Cody Gonzalez DO at OR [facility] Lens Left: Eye 11/12/2025 CNA0T0 / [id number] / Viatorr Tips Endoprosthesis 8-10 Mm X 8cm / 2cm Implanted:Qty: 1 on 10/07/2020 by Go Alvarado MD at [facility] Right: Abdomen 03/03/2023 [id number] / / [id number] Description:Viatorr TIPS End oprosthesis 8-10 mm x 8cm / 2cm, Manufactored by [employer] Syr Pf 2ml Embospheres 100-300 - [id number] Implanted:Qty: 1 on 04/18/2021 by Kevin Lim DO at OR [facility] Left: Abdomen [employer] [id number] 11/25/2023 S220GH / / [id number] -[id number] Syr Pf 2ml Embospheres 100-300 - [id number] Implanted:Qty: 1 on 03/28/[address] [facility] [employer] [id number] 08/31/2024 S220GH / / [id number] Clareon Iol Aspheric Hydrophobic Acrylic Iol Implanted:Qty: 1 on 04/02/2023 by Cody Gonzalez DO at OR [facility] Right: Eye JAZMIN 11/12/2025 CNA0T0 / [id number] / documented as of this encounter Advance Directives Documents on File Type Date Recorded Patient Field Traffic Investigator Expl anation Advance Directives and Living Will 12/11/2022 ADVANCE DIRECTIVE / LIVING WILL LIVING WILL Power of Wax Specialist 12/11/2022 POWER OF A TTORNEY Latest [...] the patient have Health Care Power of Wax Specialist? No Full Code 07/22/2014 9:56 PM 07/24/2014 8:18 PM This order reflects the patients wishes and were consensually agreed upon. Question Answer Comments Discussion of Advance Directives occurred with: Patient Does the patient have a Living Will? No Does the patient have Health Care Power of Wax Specialist? No Care Teams Hospital Coordinator Relationship Specialty Start Date End Date Francisco Cisse MD [address] [place] [address], [place] [address] PCP - General Internal Medicine 09/04/21 documented as of this encounter
--- OUTSIDE RECORDS SUMMARY | 2023-11-26 12:43 | External Medical Summary | Summary of Care ---
Author Name Unknown Organization [facility] Address [address] [facility] [address] Phone [phone] Care Team Providers Care Office Bookkeeper Name Role Phone Francisco Cisse MD Primary Care Provider + Reason for Referral * Evaluate & Treat - Unlimited Visits (Within 3 days (urgent)) - Authorized Specialty Diagnoses / Procedures Referred By Chacho fleming Referred To Contact Neuro/Ortho Surgery - Spine. / Neurological Surgery Diagnoses Other closed fracture of twelfth thoracic vertebra, initial encounter ([facility]) Closed fracture of eleventh thoracic vertebra, unspecified fracture morphology, initial encounter ([facility]) Closed unstable burst fracture of twelfth thoracic vertebra, initial encounter ([facility]) Francisco Cisse MD [address] [facility] [place] [address] Referral ID Status Reason Start Date Expiration Date Visits Requested Visits Authorized [id number] Authorized Specialty Services Required 07/25/2023 999 999 Question Answer Referral Priority Within 3 days (urgent) Select spine region: Back - Thoracic/Lumbar Do you have any recent complete loss of bladder or bowel function? No Reason for Visit * Reason Onset Date Comments FYI 07/24/2023 Advice 07/24/2023 Pre op Clearance case management 07/24/2023 Encounter Details Date Type Department Care Team Description 07/24/2023 Telephone General Internal Medicine George Blankenship [place] [address] [facility] [place] [address] Francisco Cisse MD [address] [facility] [place] [address] NORA (//); Advice (Pre op Clearance ); case... [...] fracture of twelfth thoracic vertebra, initial encounter ([facility]) Take 1 Tablet by mouth in the morning and 1 Tablet in the evening. 30 Tablet 1 07/12/2023 Active oxyCODONE HCl 5 MG Oral Tablet (Oxy IR)Indications:Othe r closed fracture of twelfth thoracic vertebra, initial encounter ([facility]) Take 1 Tablet by mouth every 6 [...] mRNA, LNP-s, No Pre serve, 2-Dose Series (LaunchSide) 03/08/2021,02/15/2021 HepA Inact/HepB Recomb>=18yrs old 12/04/2019,04/2019,05/20/2019 11/19/2019 PPD 06/18/2017, 3,01/09/2012,0306/2011 Pneumococcal Conjugate Vacc, 13 Valent (Prevnar) 05/01/2017 Pneumococcal Polysaccharide PPV23 (Pneumovax) 08/28/2022,10/25/2015,07/14/2012 Season Influenza, Quad, PF, Adjuvanted, 65+ Yrs, IM (FLUAD) 10/07/2020(Deferred: Patient Refused - pt says he already had his shot last month at [facility]y Lyons and Mckinley Cobian [...] Miscellaneous Notes * Telephone Encounter - ESTELLE Brooks - 07/25/2023 3:43 PM EDT Please assist with urgent spine surgery referral. See message below from Dr Cisse. * Addendum Note - Francisco Cisse MD - 07/25/2023 3:35 PM EDTAddended by: FRANCISCO CISSE on: 07/25/2023 03:35 PM Modules accepted: Orders * Telephone Encounter - Francisco Cisse MD - 07/25/2023 3:30 PM EDT I placed urgent spinal surgery referral, needs to go to [place] please!!! Please have all ct t spine and lumbar spine and mri pushed to our system. Would also recommend he have a disc burned of all films from [facility] If there is a delay to getting into spinal surgery in [place], let me know. Go to [facility] er if pain worsens, or weakness GI - FYI I called Dr. Lockhart's office to speak to Sue, or Dr. Lockhart. I left message to return call. If they call back please: Let them know due to his chronic medical issues with liver, fluid balance, etc, GI recommended [facility] for surgery Can cancel upcoming surgery there for now * Telephone Encounter - Michelle Nash RN - 07/25/2023 3:20 PM EDT Spoke with patient. He would like to proceed with scheduling surgery at [place] as he would feel more comfortable having done within [facility] system. He is concerned about taking the lactulose and possibly having incontinence of stool and contaminating the incision after the surgery. He would like advised of plan once in place. He is currently still scheduled to have surgery with Dr. Lockhart on Saturday and is questioning if they will be notified of the change in location or if he needs to contact Dr. Lockhart himself. Dr. Cisse-[facility]. Please advise if he will need to notify Dr. Lockhart's office. Thank you! * Telephone Encounter - Michelle Nash RN - 07/25/2023 1:33 PM EDT LVM for patient to return call to discuss below. * Telephone Encounter - Francisco Cisse MD - 07/25/2023 12:12 PM EDT Michelle, Can we call Carlos - GI reviewed case and is worried he will decompensate quickly after surgery. Theyare recommend he go see surgery in [place] for evaluation. They would like his ortho records urgently looked at by the spine surgeons at [place] and see if they will OK admission and surgery there.Is he willing to do that? They feel safer. If not, they would need to do surgery here at [facility] and taylor would recommend he be admitted about 24 hours prior to surgery to tune him up and get consults prior with GI and nephrology let me know * Telephone Encounter - JEFF Mccabe - 07/25/2023 9:51 AM EDT I recommend that he under spine surgery in [place]. Even with excellent medical management, his cirrhosis will likely decompensate and he should be medically managed in an IP setting by a center aisle cashier and crusher loader operator perioperatively. * Telephone Encounter - Michelle Nash RN - 07/25/2023 9:20 AM EDT Called and spoke with patient regarding below. He is not having any chest pain, shortness of breath, COOK or swelling of the hands/abdomen/LE at present time. He has not received his oxygen from [facility] yet but he is aware of the recommendations from pulmonology. He will hold all supplements and NSAIDS as advised. He reports he is not currently using the repaglinide and will not resume this. He will only take 1/2 of his lantus the night prior to surgery. will send these recommendations to the patient as a message in [email or web address] as well. Dr. Tanna MELENDEZ. Please advise [...] op clearance. Please contact back pt at [phone] regarding a pre op clearance appointment. Thank you. * Telephone Encounter - Brittany Suresh LPN - 07/24/2023 2:03 PM EDT Provider to address: message Reason for Call: NORA (//) Contact: Telephone Call Contact Type: Follow-up Outcome: Called Sue @ [facility]. Said the patient needs a T10 to L2 fusion and he is scheduled on the. She is going to fax over the last office note and information. There are no available appts with Dr. Cisse before the . Total Time including non [...] 12:01 PM EDT Lyndsay is calling from [facility] in regards to adding him [...] Specialty Care Team Description 07/29/2023 Telemedicine Dermatology [place], Pharmacist Dermatology [address] [place] [address] [place] [address] 08/08/2023 Imaging Radiology 08/30/2023 Office Visit Gastroenterology Lamar Tatum CRNP [address] [place] [address] 09/30/2023 Office Visit Hematology Oncology [facility] [address] [facility] [address] 10/08/2023 Procedure Only Urology Frank Peraza MD [address] [place] [address] [place] [address] 10/11/2023 Office Visit Internal Medicine Joaquin Snider PA-C [address] [facility] [address] 06/11/2024 Office Visit Ophthalmology Cody Gonzalez, [address] [place] [address] Scheduled Referrals Name Type Priority Associated Diagnoses Orde r Schedule SPINE SURGERY REFERRAL OP Referral Within 3 days (urgent) Other closed fracture of twelfth thoracic vertebra, initial encounter ([facility]) Closed fracture of eleventh thoracic vertebra, unspecified fracture morphology, initial encounter ([facility]) Closed unstable burst fracture of twelfth thoracic vertebra, initial encounter ([facility]) Ordered: 07/25/2023 Health Maintenance Due Date Last Done Comments [...] Additional history exists CKD PHOS USE SMARTSET 89213 01/28/202401/03, 07/26/2022, 12/05/2021, Additional history exists DIABETES-FOOT EXAM 03/06/2024 03/06/2023, 0 01/03/2022, 03/02/2021, Additional history exists Albumin/Creatinine Ratio 07/12/2024 023, 10/01/2022, 09/11/2021, Additional history exists CKD HGB USE SMARTSET 07435 07/24/202407/24, 07/12/2023, 07/12/2023, Additional history exists COLONOSCOPY-EVERY [...] this encounter Medical Devices Implanted Type [place] Ordinary Device Identifier Shelf Expiration Date Model / Serial / Lot Clareon Iol Aspheric Hydrophobic Acrylic Iol Implanted:Qty: 1 on 04/23/2023 by Cody Gonzalez DO at [facility] Lens Left: Eye 11/12/2025 CNA0T0 / [id number] / Viatorr Tips Endoprosthesis 8-10 Mm X 8cm / 2cm Implanted:Qty: 1 on 10/07/2020 by Go Alvarado MD at [facility] Right: Abdomen 03/03/2023 [id number] / / [id number] Description:Viatorr TIPS End oprosthesis 8-10 mm x 8cm / 2cm, Manufactored by [employer] Syr Pf 2ml Embospheres 100-300 - [id number] Implanted:Qty: 1 on 04/18/2021 by Kevin Lim DO at OR [facility] Left: Abdomen [employer] [id number] 11/25/2023 S220GH / / [id number] Syr Pf 2ml Embospheres 100-300 - [id number] Implanted:Qty: 1 on 03/28/[address] [facility] [employer] [id number] 08/31/2024 S220GH / / [id number] -5 Clareon Iol Aspheric Hydrophobic Acrylic Iol Implanted:Qty: 1 on 04/02/2023 by Cody Gonzalez DO at OR [facility] Right: Eye JAZMIN 11/12/2025 CNA0T0 / [id number] / documented as of this encounter Visit Diagnoses Diagnosis Other closed fracture of twelfth thoracic vertebra, initial encounter ([facility])- Primary Closed fracture of eleventh thoracic vertebra, unspecified fracture morphology, initial encounter ([facility]) Closed unstable burst fracture of twelfth thoracic vertebra, initial encounter ([facility]) documented in this encounter Advance Directives Documents on File Type Date Recorded 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 No Full Code 07/22/2014 9:56 PM 07/24/2014 8:18 PM This order reflects the patients wishes and were consensually agreed upon. Question Answer Comments Discussion of Advance Directives occurred with: Patient Does the patient have a Living Will? No Does the patient have Health Care Power of Gun Welder? No Care Teams Office Bookkeeper Relationship Specialty Start Date End Date Francisco Cisse MD [address] [place] [id number] PCP - General Internal Medicine 09/04/21 documented as of this encounter
--- OUTSIDE RECORDS SUMMARY | 2023-11-26 12:43 | External Medical Summary | Summary of Care ---
Author Name Unknown Organization [facility] [address] [facility] [place] [address] Phone [phone] Care Team Providers Care Road Driver Name Role Phone Francisco Cisse MD Primary Care Provider + Reason for Visit * Reason Onset Date Comments FYI 07/24/2023 Advice 07/24/2023 Pre op Clearance case management 07/24/2023 Encounter Details Date Type Department Care Team Description 07/24/2023 Telephone General Internal Medicine [facility] [place] [address] [facility] [place] [address] Francisco Cisse MD [address] [facility] [place] [address] FYI (//); Advice (Pre op Clearance ); [...] goal of less than 7.0% ([facility]) Use to test blood sugars [...] twelfth thoracic vertebra, initial encounter ([facility]) Take 1 Tablet by mouth in the morning and 1 Tablet in the evening. 30 Tablet 1 07/12/2023 Active oxyCODONE HCl 5 MG Oral Tablet (Oxy IR)Indications:Othe r closed fracture of twelfth thoracic vertebra, initial encounter ([facility]) Take 1 Tablet by mouth [...] his shot last month at [facility] Lyons and Mckinley Cobian [...] PM EDT Michelle, Can we call Carlos ANAYA reviewed case and is worried he will decompensate quickly after surgery. Theyare recommend he go see surgery in [place] for evaluation. They would like his ortho records urgently looked at by the spine surgeons at [place] and see if they will OK admission and surgery there.Is he willing to do that? They feel safer. If not, they would need to do surgery here at [facility] and [facility] would recommend he be admitted about 24 hours prior to surgery to tune him up and get consults prior with GI and nephrology let me know * Telephone Encounter - JEFF Mccabe - 07/25/2023 9:51 AM EDT I recommend that he under spine surgery in [place]. Even with excellent medical management, his cirrhosis will likely decompensate and he should be medically managed in an IP setting by a physiologist and clinical law professor perioperatively. * Telephone Encounter - Michelle Nash RN - 07/25/2023 9:20 AM EDT Called and spoke with patient regarding below. He is not having any chest pain, shortness of breath, COOK or swelling of the hands/abdomen/LE at present time. He has not received his oxygen from [facility] yet but he is aware of the recommendations from pulmonology. He will hold all supplements and NSAIDS as advised. He reports he is not currently using the repaglinide and will not resume this. He will only take 1/2 of his lantus the night prior to surgery. will send these recommendations to the patient as a message in [employer] as well. Dr. Cisse - [facility]. Please advise if you have any additional [...] op clearance. Please contact back pt at [phone] regarding a pre op clearance appointment. Thank you. * Telephone Encounter - Brittany Suresh LPN - 07/24/2023 2:03 PM EDT Provider to address: message Reason for Call: NORA (//) Contact: Telephone Call Contact Type: Follow-up Outcome: Called Sue @ [facility]. Said the patient needs a T10 to [...] 12:01 PM EDT Lyndsay is calling from [place] [facility] in regards to adding him [...] Specialty Care Team Description 07/29/2023 Telemedicine Dermatology [facility], Pharmacist Dermatology [address] [place] [id number] 08/08/2023 Imaging Radiology 08/30/2023 Office Visit Gastroenterology Lamar Tatum CRNP [address] [place] [address] 09/30/2023 Office Visit Hematology Oncology Jennifer Ramires MD [address] [place] [address] 10/08/2023 Procedure Only Urology Frank Peraza MD [address] [facility] [address] [place] [address] 10/11/2023 Office Visit Internal Medicine Joaquin Snider PA-C [address] [place] [address] 06/11/2024 Office Visit Ophthalmology Cody Gonzalez DO [address] [place] [address] Health Maintenance Due Date Last [...] Additional history exists CKD PHOS USE SMARTSET 52158 01/28/202401/03, 07/26/2022, 12/05/2021, Additional history exists DIABETES-FOOT EXAM 03/06/2024 03/06/2023, 0 01/03/2022, 03/02/2021, Additional history exists Albumin/Creatinine Ratio 07/12/2024 023, 10/01/2022, 09/11/2021, Additional history exists CKD HGB USE SMARTSET 13665 07/24/202407/24, 07/12/2023, 07/12/2023, Additional history exists COLONOSCOPY-EVERY [...] this encounter Medical Devices Implanted Type Area Ordnance Engineer Device Identifier Shelf Expiration Date Model / Serial / Lot Clareon Iol Aspheric Hydrophobic Acrylic Iol Implanted:Qty: 1 on 04/23/2023 by Cody Gonzalez DO at OR [facility] Lens Left: Eye 11/12/2025 CNA0T0 / [id number] / Viatorr Tips Endoprosthesis 8-10 Mm X 8cm / 2cm Implanted:Qty: 1 on 10/07/2020 by Go Alvarado MD at [facility] Right: Abdomen 03/03/2023 [id number] / / [id number] Description:Viatorr TIPS End oprosthesis 8-10 mm x 8cm / 2cm, Manufactored by [employer] Syr Pf 2ml Embospheres 100-300 - [id number] Implanted:Qty: 1 on 04/18/2021 by Kevin Lim DO at OR [facility] Left: Abdomen [employer] [id number] 11/25/2023 S220GH / / [id number] Syr Pf 2ml Embospheres 100-300 - [id number] Implanted:Qty: 1 on 03/28/2022 at [facility] [employer] [id number] 08/31/2024 S220GH / / [id number] -5 Clareon Iol Aspheric Hydrophobic Acrylic Iol Implanted:Qty: 1 on 04/02/2023 by Cody Gonzalez DO at OR [facility] Right: Eye JAZMIN 11/12/2025 CNA0T0 / [id number] / documented as of this encounter Advance Directives Documents on File Type Date Recorded Patient Inspector Bicycle Expl anation Advance Directives and Living Will 12/11/2022 ADVANCE DIRECTIVE / LIVING WILL LIVING WILL Power of Senior Mechanical Designer 12/11/2022 POWER OF A TTORNEY Latest Code [...] patient have Health Care Power of Senior Mechanical Designer? No Full Code 07/22/2014 9:56 PM 07/24/2014 8:18 PM This order reflects the patients wishes and were consensually agreed upon. Question Answer Comments Discussion of Advance Directives occurred with: Patient Does the patient have a Living Will? No Does the patient have Health Care Power of Senior Mechanical Designer? No Care Teams Road Driver Relationship Specialty Start Date End Date Francisco Cisse MD [address] [place] [id number] PCP - General Internal Medicine 09/04/21 documented as of this encounter
--- OUTSIDE RECORDS SUMMARY | 2023-11-26 12:43 | External Medical Summary | Summary of Care ---
Author Name Unknown Organization [facility] Address [address] [facility] [address] Phone [phone] Care Team Providers Care Hole Digger Truck Driver Name Role Phone Francisco Cisse MD Primary Care Provider + Reason for Visit * Reason Onset Date Comments FYI 07/24/2023 Advice 07/24/2023 Pre op Clearance case management 07/24/2023 Encounter Details Date Type Department Care Team Description 07/24/2023 Telephone General Internal Medicine [facility] [place] [address] [facility] [place] [address] Francisco Cisse MD 200 [place] [address] FYI (//); Advice (Pre op Clearance ); [...] hemoglobin A1c goal of less than 7.0% ([facility]) Use to test blood sugars 3 times [...] fracture of twelfth thoracic vertebra, initial encounter ([facility]) Take 1 Tablet by mouth in the morning and 1 Tablet in the evening. 30 Tablet 1 07/12/2023 Active oxyCODONE HCl 5 MG Oral Tablet (Oxy IR)Indications:Othe r closed fracture of twelfth thoracic vertebra, initial encounter ([facility]) Take 1 Tablet by mouth every 6 [...] like to proceed with scheduling surgery at [place] as he would feel more comfortable having done within [facility] system. He is concerned about taking the [...] needs to contact Dr. Lockhart himself. Dr. Cisse[facility]. Please advise if he will need to notify Dr. Lockhart's office. Thank you! * Telephone Encounter - Michelle Nash RN - 07/25/2023 1:33 PM EDT LVM for patient to return call to discuss below. * Telephone Encounter - Francisco Cisse MD - 07/25/2023 12:12 PM EDT Michelle, Can we call Carloslonnie ANAYA reviewed case and is worried he will decompensate quickly after surgery. Theyare recommend he go see surgery in [place] for evaluation. They would like his ortho records urgently looked at by the spine surgeons at [place] and see if they will OK admission and surgery there.Is he willing to do that? They feel safer. If not, they would need to do surgery here at [facility] and [facility] would recommend he be admitted about 24 hours prior to surgery to tune him up and get consults prior with GI and nephrology let me know * Telephone Encounter - JEFF Mccabe - 07/25/2023 9:51 AM EDT I recommend that he under spine surgery in [place]. Even with excellent medical management, his cirrhosis will likely decompensate and he should be medically managed in an IP setting by a assistant quality manager and metal sander and finisher perioperatively. * Telephone Encounter - Michelle Nash RN - 07/25/2023 9:20 AM EDT Called and spoke with patient regarding below. He is not having any chest pain, shortness of breath, COOK or swelling of the hands/abdomen/LE at present time. He has not received his oxygen from [facility] yet but he is aware of the recommendations from pulmonology. He will hold all supplements and NSAIDS as advised. He reports he is not currently using the repaglinide and will not resume this. He will only take 1/2 of his lantus the night prior to surgery. KARI will send these recommendations to the patient as a message in [employer] as well. Dr. Tanna MELENDEZ. Please advise [...] op clearance. Please contact back pt at [phone] regarding a pre op clearance appointment. Thank [...] 12:01 PM EDT Lyndsay is calling from [facility] in regards to adding him [...] Specialty Care Team Description 07/29/2023 Telemedicine Dermatology [place], Pharmacist Dermatology [address] [place] [address] 08/08/2023 Imaging Radiology 08/30/2023 Office Visit Gastroenterology Lamar Tatum CRNP [address] [facility] [place] [address] 09/30/2023 Office Visit Hematology Oncology Jennifer Ramires MD [address] [place] [address] 10/08/2023 Procedure Only Urology Frank Peraza MD [address] [place] [address] [place] [address] 10/11/2023 Office Visit Internal Medicine Joaquin Snider PA-C [address] [place] [address] 06/11/2024 Office Visit Ophthalmology Cody Gonzalez, DO 21 [facility] [place] [id number] Health Maintenance Due Date Last Done Comments [...] Additional history exists CKD PHOS USE SMARTSET 13534 01/28/202401/03, 07/26/2022, 12/05/2021, Additional history exists DIABETES-FOOT EXAM 03/06/2024 03/06/2023, 0 01/03/2022, 03/02/2021, Additional history exists Albumin/Creatinine Ratio 07/12/2024 023, 10/01/2022, 09/11/2021, Additional history exists CKD HGB USE SMARTSET 90990 07/24/202407/24, 07/12/2023, 07/12/2023, Additional history exists COLONOSCOPY-EVERY [...] this encounter Medical Devices Implanted Type Area Sheriffs Device Identifier Shelf Expiration Date Model / Serial / Lot Clareon Iol Aspheric Hydrophobic Acrylic Iol Implanted:Qty: 1 on 04/23/2023 by Cody Gonzalez DO at OR [facility] Lens Left: Eye 11/12/2025 CNA0T0 / [id number] / Viatorr Tips Endoprosthesis 8-10 Mm X 8cm / 2cm Implanted:Qty: 1 on 10/07/2020 by Go Alvarado MD at [facility] Right: Abdomen 03/03/2023 [id number] / / [id number] Description:Viatorr TIPS End oprosthesis 8-10 mm x 8cm / 2cm, Manufactored by [employer] Syr Pf 2ml Embospheres 100-300 - [id number] Implanted:Qty: 1 on 04/18/2021 by Kevin Lim DO at OR [facility] Left: Abdomen [employer] [id number] 11/25/2023 S220GH / / [id number] Syr Pf 2ml Embospheres 100-300 - [id number] Implanted:Qty: 1 on 03/28/2022 at [facility] [employer] [id number] 08/31/2024 S220GH / / [id number] -[id number] Clareon Iol Aspheric Hydrophobic Acrylic Iol Implanted:Qty: 1 on 04/02/2023 by Cody Gonzalez DO at OR [facility] Right: Eye JAZMIN 11/12/2025 CNA0T0 / [id number] / documented as of this encounter Advance Directives Documents on File Type Date Recorded 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 No Full Code 07/22/2014 9:56 PM 07/24/2014 8:18 PM This order reflects the patients wishes and were consensually agreed upon. Question Answer Comments Discussion of Advance Directives occurred with: Patient Does the patient have a Living Will? No Does the patient have Health Care Power of Cone Machine Feeder? No Care Teams Hole Digger Truck Driver Relationship Specialty Start Date End Date Francisco Cisse MD [address] [place] [address] [place] [address] PCP - General Internal Medicine 09/04/21 documented as of this encounter
--- OUTSIDE RECORDS SUMMARY | 2023-11-26 12:43 | External Medical Summary | Summary of Care ---
Author Name Unknown Organization [facility] Address [address] [place] [address] Phone [phone] Care Team Providers Care Windows System Admin Name Role Phone Francisco Cisse MD Primary Care Provider + Reason for Visit * Reason Onset Date Comments case management 07/29/2023 Encounter Details Date Type Department Care Team Description 07/29/2023 Territory Sales Consultant Telephone General Internal Medicine [facility] [address] Michelle Nash, RN [address] [place] [address] case management Allergies No known active allergiesdocumented as of this encounter (statuses as of 07/29/2023) Medications Medication Sig Dispensed Refills Start Date [...] as of this encounter (statuses as of 07/29/2023) Active Problems Problem Noted Date Closed T12 [...] as of this encounter (statuses as of 07/29/2023) Resolved Problems Problem Noted Date Resolved Date [...] as of this encounter (statuses as of 07/29/2023) Immunizations Name Administration Dates Next Due COVID-19 mRNA, LNP-s, No Pre serve, 2-Dose Series ([place]) 03/08/2021,02/15/2021 HepA Inact/HepB Recomb>=18yrs old 12/04/2019,04/2019,05/20/2019 11/19/2019 [...] Telephone Encounter - Michelle Nash RN - 07/29/2023 3:10 PM EDT SITUATION: [facility] Tier 2 follow up ANDREW BACKGROUND: [facility] 06/25-06/27 and [facility] 06/27-07/03 s/p fall w/ injury [facility] ED 07/10 for back pain ASSESSMENT: Spoke with patient. Reports he is scheduled to see spine surgeon in [place] this week to discuss surgery. Had been scheduled to have done at [facility] with Dr. Lockhart but after consultation it was recommended he go to [facility] in [place] to complete. He is rating his pain 3/10 today-pain is controlled withTylenol. He is wearing his back brace and using his walker for ambulation. [facility] PT/OT stillseeing weekly. FBS was "around 140" this morning. Now using oxygen 2 lpm at bedtime. No further issues at this time. RECOMMENDATION: Will plan to follow up again within one week. Michelle Nash RN General Internal Medicine [facility] [place] [address] [place] [address] documented in this encounter Plan of Treatment Upcoming Encounters Date Type Specialty Care Team Description 08/02/2023 Office Visit Orthopedic Surgery Clayton Vazquez MD [address] [place] [address] 08/08/2023 Imaging Radiology 08/30/2023 Office Visit Gastroenterology Lamar Tatum CRNP [address] [place] [address] 09/30/2023 Office Visit Hematology Oncology Jennifer Ramires MD 200 [facility] [place] [address] 10/08/2023 Procedure Only Urology Frank Peraza MD [address] [facility] [address] [place] [address] 10/11/2023 Office Visit Internal Medicine Joaquin Snider PA-C [address] [place] [address] 06/11/2024 Office Visit Ophthalmology Cody Gonzalez DO [address] [place] [address] Health Maintenance Due Date Last Done Comments [...] Additional history exists CKD PHOS USE SMARTSET 03899 01/28/202401/03, 07/26/2022, 12/05/2021, Additional history exists DIABETES-FOOT EXAM 03/06/2024 03/06/2023, 0 01/03/2022, 03/02/2021, Additional history exists Albumin/Creatinine Ratio 07/12/2024 023, 10/01/2022, 09/11/2021, Additional history exists CKD HGB USE SMARTSET 13355 07/24/202407/24, 07/12/2023, 07/12/2023, Additional history exists COLONOSCOPY-EVERY [...] this encounter Medical Devices Implanted Type Area Tapping Machine Operator Automatic Device Identifier Shelf Expiration Date Model / Serial / Lot Clareon Iol Aspheric Hydrophobic Acrylic Iol Implanted:Qty: 1 on 04/23/2023 by Cody Gonzalez DO at OR [facility] Lens Left: Eye 11/12/2025 CNA0T0 / [id number] / Viatorr Tips Endoprosthesis 8-10 Mm X 8cm / 2cm Implanted:Qty: 1 on 10/07/2020 by Go Alvarado MD at [facility] Right: Abdomen 03/03/2023 [id number] / / [id number] Description:Viatorr TIPS End oprosthesis 8-10 mm x 8cm / 2cm, Manufactored by [employer] Syr Pf 2ml Embospheres 100-300 - [id number] Implanted:Qty: 1 on 04/18/2021 by Kevin Lim DO at OR [facility] Left: Abdomen [employer] [id number] 11/25/2023 S220GH / / [id number] -[id number] Syr Pf 2ml Embospheres 100-300 - [id number] Implanted:Qty: 1 on 03/28/2022 at [facility] [employer] [id number] 08/31/2024 S220GH / / [id number] -5 Clareon Iol Aspheric Hydrophobic Acrylic Iol Implanted:Qty: 1 on 04/02/2023 by Cody Gonzalez DO at OR [facility] Right: Eye JAZMIN 11/12/2025 CNA0T0 / [id number] / documented as of this encounter Visit Diagnoses Diagnosis Medical home patient encounter- Primary Other specified examination documented in this encounter Advance Directives Documents on File Type Date Recorded 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 No Full Code 07/22/2014 9:56 PM 07/24/2014 8:18 PM This order reflects the patients wishes and were consensually agreed upon. Question Answer Comments Discussion of Advance Directives occurred with: Patient Does the patient have a Living Will? No Does the patient have Health Care Power of Sugar Trucker? No Care Teams Windows System Admin Relationship Specialty Start Date End Date Francisco Cisse MD [address] [place] [address] PCP - General Internal Medicine 09/04/21 documented as of this encounter
--- OUTSIDE RECORDS SUMMARY | 2023-11-26 12:43 | External Medical Summary | Summary of Care ---
Author Name Unknown Organization [facility] Address [address] [facility] [address] Phone [phone] Care Team Providers Care Manager Epic Name Role Phone Francisco Cisse MD Primary Care Provider + Reason for Visit * Reason Onset Date Comments FYI 07/24/2023 Advice 07/24/2023 Pre op Clearance case management 07/24/2023 Encounter Details Date Type Department Care Team Description 07/24/2023 Telephone General Internal Medicine [facility] [place] [address] [facility] [place] [address] Francisco Cisse MD 200 [place] [address] FYI (//); Advice (Pre op Clearance ); [...] of twelfth thoracic vertebra, initial encounter ([facility]) Take 1 Tablet by mouth in the morning and 1 Tablet in the evening. 30 Tablet 1 07/12/2023 Active oxyCODONE HCl 5 MG Oral Tablet (Oxy IR)Indications:Othe r closed fracture of twelfth thoracic vertebra, initial encounter ([facility]) Take 1 Tablet by mouth every 6 [...] already had his shot last month at [facility] Handy Lyons and Mckinley Cobian made [...] 12:12 PM EDT Michelle, Can we call [facility] reviewed case and is worried he will decompensate quickly after surgery. Theyare recommend he go see surgery in [place] for evaluation. They would like his ortho records urgently looked at by the spine surgeons at [place] and see if they will OK admission and surgery there.Is he willing to do that? They feel safer. If not, they would need to do surgery here at [facility] and taylor would recommend he be admitted about 24 hours prior to surgery to tune him up and get consults prior with GI and nephrology let me know * Telephone Encounter - JEFF Mccabe - 07/25/2023 9:51 AM EDT I recommend that he under spine surgery in [place]. Even with excellent medical management, his cirrhosis will likely decompensate and he should be medically managed in an IP setting by a cell operator and director of corporate communications perioperatively. * Telephone Encounter - Michelle Nash RN - 07/25/2023 9:20 AM EDT Called and spoke with patient regarding below. He is not having any chest pain, shortness of breath, COOK or swelling of the hands/abdomen/LE at present time. He has not received his oxygen from [facility] yet but he is aware of the recommendations from pulmonology. He will hold all supplements and NSAIDS as advised. He reports he is not currently using the repaglinide and will not resume this. He will only take 1/2 of his lantus the night prior to surgery. will send these recommendations to the patient as a message in [employer] as well. Dr. Tanna MELENDEZ. Please advise if you have any additional recommendations or if a preop appointment is required and I will update the patient as necessary. Thank you! * Telephone Encounter - Francisco Cisse MD - 07/25/2023 8:35 AM EDT Michelle, Can you please call [facility]. Sounds like he needs urgent surgery for [...] op clearance. Please contact back pt at [phone] regarding a pre op clearance appointment. Thank you. * Telephone Encounter - Brittany Suresh LPN - 07/24/2023 2:03 PM EDT Provider to address: message Reason for Call: FYFausto (//) Contact: Telephone Call Contact Type: Follow-up [...] 12:01 PM EDT Lyndsay is calling from [facility] in regards to adding [...] Specialty Care Team Description 07/29/2023 Telemedicine Dermatology [place], Pharmacist Dermatology [address] [place] [address] 08/08/2023 Imaging Radiology 08/30/2023 Office Visit Gastroenterology Lamar Tatum CRNP [address] [facility] [place] [address] 09/30/2023 Office Visit Hematology Oncology Jennifer Ramires MD [address] [place] [address] 10/08/2023 Procedure Only Urology Frank Peraza MD [address] [facility] [address] [place] [address] 10/11/2023 Office Visit Internal Medicine Joaquin Snider PA-C 200 [facility] [place] [address] 06/11/2024 Office Visit Ophthalmology Cody Gonzalez DO [address] [place] [address] Health Maintenance Due Date Last [...] Additional history exists CKD PHOS USE SMARTSET 41202 01/28/202401/03, 07/26/2022, 12/05/2021, Additional history exists DIABETES-FOOT EXAM 03/06/2024 03/06/2023, 0 01/03/2022, 03/02/2021, Additional history exists Albumin/Creatinine Ratio 07/12/2024 023, 10/01/2022, 09/11/2021, Additional history exists CKD HGB USE SMARTSET 03355 07/24/202407/24, 07/12/2023, 07/12/2023, Additional history exists COLONOSCOPY-EVERY [...] this encounter Medical Devices Implanted Type Area Bobbin Cleaner Device Identifier Shelf Expiration Date Model / Serial / Lot Clareon Iol Aspheric Hydrophobic Acrylic Iol Implanted:Qty: 1 on 04/23/2023 by Cody Gonzalez DO at OR [facility] Lens Left: Eye 11/12/2025 CNA0T0 / [id number] / Viatorr Tips Endoprosthesis 8-10 Mm X 8cm / 2cm Implanted:Qty: 1 on 10/07/2020 by Go Alvarado MD at [facility] Right: Abdomen 03/03/2023 [id number] / / [id number] Description:Viatorr TIPS End oprosthesis 8-10 mm x 8cm / 2cm, Manufactored by [employer] Syr Pf 2ml Embospheres 100-300 - [id number] Implanted:Qty: 1 on 04/18/2021 by Kevin Lim DO at OR [facility] Left: Abdomen [employer] [id number] 11/25/2023 S220GH / / [id number] -5 Syr Pf 2ml Embospheres 100-300 - [id number] Implanted:Qty: 1 on 03/28/2022 at [facility] [employer] [id number] 08/31/2024 S220GH / / [id number] -5 Clareon Iol Aspheric Hydrophobic Acrylic Iol Implanted:Qty: 1 on 04/02/2023 by Cody Gonzalez DO at OR [facility] Right: Eye JAZMIN 11/12/2025 CNA0T0 / [id number] / documented as of this encounter Advance Directives Documents on File Type Date Recorded Patient Alpaca Farmer Expl anation Advance Directives and Living Will 12/11/2022 ADVANCE DIRECTIVE / LIVING WILL LIVING WILL Power of Stainless Steel Finisher 12/11/2022 POWER OF A TTORNEY Latest Code [...] the patient have Health Care Power of Stainless Steel Finisher? No Full Code 07/22/2014 9:56 PM 07/24/2014 8:18 PM This order reflects the patients wishes and were consensually agreed upon. Question Answer Comments Discussion of Advance Directives occurred with: Patient Does the patient have a Living Will? No Does the patient have Health Care Power of Stainless Steel Finisher? No Care Teams Manager Epic Relationship Specialty Start Date End Date Francisco Cisse MD [address] [place] [address] [place] [address] PCP - General Internal Medicine 09/04/21 documented as of this encounter
--- OUTSIDE RECORDS SUMMARY | 2023-11-26 12:43 | External Medical Summary | Summary of Care ---
Author Name Unknown Organization [facility] Address [address] [facility] [place] [address] Phone [phone] Care Team Providers Care Channel Cementer Outsole Machine Name Role Phone Francisco Cisse MD Primary Care Provider + Encounter Details Date Type Department Care Team Description 07/24/2023 Result Scan Unspecified Department <No scans attached> Allergies No known active [...] hemoglobin A1c goal of less than 7.0% ([facility]) Use to test blood sugars [...] fracture of twelfth thoracic vertebra, initial encounter ([facility]) Take 1 Tablet by mouth in the morning and 1 Tablet in the evening. 30 Tablet 1 07/12/2023 Active oxyCODONE HCl 5 MG Oral Tablet (Oxy IR)Indications:Othe r closed fracture of twelfth thoracic vertebra, initial encounter ([facility]) Take 1 Tablet by mouth [...] mRNA, LNP-s, No Pre serve, 2-Dose Series ([employer]) 03/08/2021,02/15/2021 HepA Inact/HepB Recomb>=18yrs old 12/04/2019,04/2019,05/20/2019 11/19/2019 PPD 06/18/2017, 3,01/09/2012,06/2011 Pneumococcal Conjugate Vacc, 13 Valent (Prevnar) 05/01/2017 Pneumococcal Polysaccharide PPV23 (Pneumovax) 08/28/2022,10/25/2015,07/14/2012 Season Influenza, Quad, PF, Adjuvanted, 65+ Yrs, IM (FLUAD) 10/07/2020(Deferred: Patient Refused - pt says he already had his shot last month at [facility] Handy Lyons and Mckinley Cobian made [...] Specialty Care Team Description 07/29/2023 Telemedicine Dermatology [place], [facility] Dermatology [address] [place] [address] 08/02/2023 Office Visit Orthopedic Surgery Clayton Vazquez MD [address] [place] [address] 08/08/2023 Imaging Radiology 08/30/2023 Office Visit Gastroenterology Lamar Tatum CRNP [address] [place] [address] 09/30/2023 Office Visit Hematology Oncology Jennifer Ramires MD [address] [place] [address] 10/08/2023 Procedure Only Urology Frank Peraza MD [address] [facility] [address] [place] [address] 10/11/2023 Office Visit Internal Medicine Joaquin Snider PA-C [address] [place] [address] 06/11/2024 Office Visit Ophthalmology Cody Gonzalez, DO [address] [facility] [place] [address] Health Maintenance Due Date Last Done Comments [...] Additional history exists CKD PHOS USE SMARTSET 25279 01/28/202401/03, 07/26/2022, 12/05/2021, Additional history exists DIABETES-FOOT EXAM 03/06/2024 03/06/2023, 0 01/03/2022, 03/02/2021, Additional history exists Albumin/Creatinine Ratio 07/12/2024 023, 10/01/2022, 09/11/2021, Additional history exists CKD HGB USE SMARTSET 63126 07/24/202407/24, 07/12/2023, 07/12/2023, Additional history exists COLONOSCOPY-EVERY [...] this encounter Medical Devices Implanted Type Area Esl Teacher Device Identifier Shelf Expiration Date Model / Serial / Lot Clareon Iol Aspheric Hydrophobic Acrylic Iol Implanted:Qty: 1 on 04/23/2023 by Cody Gonzalez DO at OR [facility] Lens Left: Eye 11/12/2025 CNA0T0 / [id number] / Viatorr Tips Endoprosthesis 8-10 Mm X 8cm / 2cm Implanted:Qty: 1 on 10/07/2020 by Go Alvarado MD at [facility] Right: Abdomen 03/03/2023 [id number] / / [id number] Description:Viatorr TIPS End oprosthesis 8-10 mm x 8cm / 2cm, Manufactored by [employer] Syr Pf 2ml Embospheres 100-300 - [id number] Implanted:Qty: 1 on 04/18/2021 by Kevin Lim DO at OR [facility] Left: Abdomen [employer] [id number] 11/25/2023 S220GH / / [id number] Syr Pf 2ml Embospheres 100-300 - [id number] Implanted:Qty: 1 on 03/28/2022 at [facility] [employer] [id number] 08/31/2024 S220GH / / [id number] Clareon Iol Aspheric Hydrophobic Acrylic Iol Implanted:Qty: 1 on 04/02/2023 by Cody Gonzalez DO at OR [facility] Right: Eye JAZMIN 11/12/2025 CNA0T0 / [id number] / documented as of this encounter Procedures Procedure Name Priority Date/Time Associated Diagnosis Comments OUTSIDE LAB RESULTS 07/24/2023 documented in this encounter Results * OUTSIDE LAB RESULTS (07/24/2023) 07/24/2023 No Physician Data Unknown LABORATORY documented in this encounter Advance Directives Documents on File Type Date Recorded Patient Refining Machine Operator Expl anation Advance Directives and Living Will 12/11/2022 ADVANCE DIRECTIVE / LIVING WILL LIVING WILL Power of Clerk Of Scales 12/11/2022 POWER OF A TTORNEY Latest Code [...] the patient have Health Care Power of Clerk Of Scales? No Full Code 07/22/2014 9:56 PM 07/24/2014 8:18 PM This order reflects the patients wishes and were consensually agreed upon. Question Answer Comments Discussion of Advance Directives occurred with: Patient Does the patient have a Living Will? No Does the patient have Health Care Power of Clerk Of Scales? No Care Teams Channel Cementer Outsole Machine Relationship Specialty Start Date End Date Francisco Cisse MD [address] [place] [address], [place] [address] PCP - General Internal Medicine 09/04/21 documented as of this encounter
--- OUTSIDE RECORDS SUMMARY | 2023-11-26 12:43 | External Medical Summary | Summary of Care ---
Author Name Unknown Organization [facility] Address [address] [place] [address] Phone [phone] Care Team Providers Care Mill Tender Washing Name Role Phone Francisco Cisse MD Primary Care Provider + Encounter Details Date Type Department Care Team Description 07/29/2023 Telemedicine Dermatology [address] [phone] [place], Pharmacist Dermatology [address] [place] [address] [phone] Psoriasis* Allergies No known active allergiesdocumented as [...] goal of less than 7.0% ([facility]) Use to test blood sugars [...] twelfth thoracic vertebra, initial encounter ([facility]) Take 1 Tablet by mouth in the morning and 1 Tablet in the evening. 30 Tablet 1 07/12/2023 Active oxyCODONE HCl 5 MG Oral Tablet (Oxy IR)Indications:Othe r closed fracture of twelfth thoracic vertebra, initial encounter ([facility]) Take 1 Tablet by mouth [...] mRNA, LNP-s, No Pre serve, 2-Dose Series ([employer]) 03/08/2021,02/15/2021 HepA Inact/HepB Recomb>=18yrs old 12/04/2019,04/2019,05/20/2019 11/19/2019 [...] of this encounter Progress Notes * Kristen Almanza RPh - 07/29/2023 10:41 AM EDT After connecting to the patient via telephone, the patient was identified by name and date of . Patient was then informed that this was a telephone call only visit. The patient agreed to participate. Visit Disposition: Routine follow-up Total call duration was 5 minutes. Patient was scheduled for light education, but unsure where light manual was. Patient reported has broken back and wearing back brace currently. Has appt 08/02 and likely wants to wait to start light treatments until after surgery. Provided my phone number for patient to call clinic back and get reschedule for light education when he decides to start. Kristen Almanza, PuneetD,BCACP Medication Therapy Disease Management Dermatology Department 07/29/2023, 10:43 AM documented in this encounter Plan of Treatment Upcoming Encounters Date Type Specialty Care Team Description 08/02/2023 Office Visit Orthopedic Surgery Clayton Vazquez MD [address] [place] [address] 08/08/2023 Imaging Radiology 08/30/2023 Office Visit Gastroenterology Lamar Tatum CRNP [address] [place] [address] 09/30/2023 Office Visit Hematology Oncology Jennifer Ramires MD [address] [place] [address] 10/08/2023 Procedure Only Urology Frank Peraza MD [address] [place] [address] [place] [address] 10/11/2023 Office Visit Internal Medicine Joaquin Snider PA-C [address] [place] [address] 06/11/2024 Office Visit Ophthalmology Cody Gonzalez, [address] [place] [address] Health Maintenance Due Date Last [...] Additional history exists CKD PHOS USE SMARTSET 05003 01/28/202401/03, 07/26/2022, 12/05/2021, Additional history exists DIABETES-FOOT EXAM 03/06/2024 03/06/2023, 0 01/03/2022, 03/02/2021, Additional history exists Albumin/Creatinine Ratio 07/12/2024 023, 10/01/2022, 09/11/2021, Additional history exists CKD HGB USE SMARTSET 89955 07/24/202407/24, 07/12/2023, 07/12/2023, Additional history exists COLONOSCOPY-EVERY [...] this encounter Medical Devices Implanted Type Area Immigration Patrol Inspector Device Identifier Shelf Expiration Date Model / Serial / Lot Clareon Iol Aspheric Hydrophobic Acrylic Iol Implanted:Qty: 1 on 04/23/2023 by Cody Goznalez DO at OR [facility] Lens Left: Eye 11/12/2025 CNA0T0 / [id number] / Viatorr Tips Endoprosthesis 8-10 Mm X 8cm / 2cm Implanted:Qty: 1 on 10/07/2020 by Go Alvarado MD at [facility] Right: Abdomen 03/03/2023 [id number] / / [id number] Description:Viatorr TIPS End oprosthesis 8-10 mm x 8cm / 2cm, Manufactored by [employer] Syr Pf 2ml Embospheres 100-300 - [id number] Implanted:Qty: 1 on 04/18/2021 by Kevin Lim DO at OR [facility] Left: Abdomen [employer] [id number] 11/25/2023 S220GH / / [id number] Syr Pf 2ml Embospheres 100-300 - [id number] Implanted:Qty: 1 on 03/28/2022 at [facility] [employer] [id number] 08/31/2024 S220GH / / [id number] -5 Clareon Iol Aspheric Hydrophobic Acrylic Iol Implanted:Qty: 1 on 04/02/2023 by Cody Gonzalez DO at OR [facility] Right: Eye JAZMIN 11/12/2025 CNA0T0 / [id number] / documented as of this encounter Visit Diagnoses Diagnosis Psoriasis- Primary Other psoriasis documented in this encounter Advance Directives Documents on File Type Date Recorded Patient Insurance Claims Examiner Expl anation Advance Directives and Living Will 12/11/2022 ADVANCE DIRECTIVE / LIVING WILL LIVING WILL Power of Film Processing Shift Supervisor 12/11/2022 POWER OF A TTORNEY Latest [...] the patient have Health Care Power of Film Processing Shift Supervisor? No Full Code 07/22/2014 9:56 PM 07/24/2014 8:18 PM This order reflects the patients wishes and were consensually agreed upon. Question Answer Comments Discussion of Advance Directives occurred with: Patient Does the patient have a Living Will? No Does the patient have Health Care Power of Film Processing Shift Supervisor? No Care Teams Mill Tender Washing Relationship Specialty Start Date End Date Francisco Cisse MD [address] [place] [address] PCP - General Internal Medicine 09/04/21 documented as of this encounter
--- OUTSIDE RECORDS SUMMARY | 2023-11-26 12:43 | External Medical Summary | Summary of Care ---
Author Name Unknown Organization [facility] Address [address] [facility] [place] [address] Phone [phone] Care Team Providers Care Ict Quality Assurance Engineer Name Role Phone Francisco Cisse MD Primary Care Provider + Encounter Details Date Type Department Care Team Description 07/27/2023 Patient Reported Data Patient Survey Ortho OBERD Allergies No known active allergiesdocumented as of this encounter (statuses as of 07/27/2023) Medications Medication Sig Dispensed Refills Start Date [...] as of this encounter (statuses as of 07/27/2023) Active Problems Problem Noted Date Closed T12 [...] as of this encounter (statuses as of 07/27/2023) Resolved Problems Problem Noted Date Resolved Date [...] as of this encounter (statuses as of 07/27/2023) Immunizations Name Administration Dates Next Due COVID-19 mRNA, LNP-s, No Pre serve, 2-Dose Series ([employer]) 03/08/2021,02/15/2021 HepA Inact/HepB Recomb>=18yrs old 12/04/2019,04/2019,05/20/2019 11/19/2019 PPD 06/18/2017, 3,01/09/2012,06/2011 Pneumococcal Conjugate Vacc, 13 Valent (Prevnar) 05/01/2017 Pneumococcal Polysaccharide PPV23 (Pneumovax) 08/28/2022,10/25/2015,07/14/2012 Season Influenza, Quad, PF, Adjuvanted, 65+ Yrs, IM (FLUAD) 10/07/2020(Deferred: Patient Refused - pt says he already had his shot last month at [facility] Handy Lyons and Mckinley Cobian made [...] Specialty Care Team Description 07/29/2023 Telemedicine Dermatology [place], [facility] Dermatology [address] [place] [address] 08/02/2023 Office Visit Orthopedic Surgery Clayton Vazquez MD [address] [place] [address] 08/08/2023 Imaging Radiology 08/30/2023 Office Visit Gastroenterology Lamar Tatum CRNP [address] [facility] [place] [address] 09/30/2023 Office Visit Hematology Oncology Jennifer Ramires MD [address] [place] [address] 10/08/2023 Procedure Only Urology Frank Peraza MD [address] [place] [address] [place] [address] 10/11/2023 Office Visit Internal Medicine Joaquin Snider PA-C [address] [place] [address] 06/11/2024 Office Visit Ophthalmology Cody Gonzalez, DO [address] [facility] [place] [phone] Health Maintenance Due Date Last Done Comments [...] Additional history exists CKD PHOS USE SMARTSET 00100 01/28/202401/03, 07/26/2022, 12/05/2021, Additional history exists DIABETES-FOOT EXAM 03/06/2024 03/06/2023, 0 01/03/2022, 03/02/2021, Additional history exists Albumin/Creatinine Ratio 07/12/2024 023, 10/01/2022, 09/11/2021, Additional history exists CKD HGB USE SMARTSET 94434 07/24/202407/24, 07/12/2023, 07/12/2023, Additional history exists COLONOSCOPY-EVERY [...] this encounter Medical Devices Implanted Type Area Welding Machine Operator Gas Device Identifier Shelf Expiration Date Model / Serial / Lot Clareon Iol Aspheric Hydrophobic Acrylic Iol Implanted:Qty: 1 on 04/23/2023 by Cody Gonzalez DO at OR [facility] Lens Left: Eye 11/12/2025 CNA0T0 / [id number] / Viatorr Tips Endoprosthesis 8-10 Mm X 8cm / 2cm Implanted:Qty: 1 on 10/07/2020 by Go Alvarado MD at [facility] Right: Abdomen 03/03/2023 [id number] / / [id number] Description:Viatorr TIPS End oprosthesis 8-10 mm x 8cm / 2cm, Manufactored by [employer] Syr Pf 2ml Embospheres 100-300 - [id number] Implanted:Qty: 1 on 04/18/2021 by Kevin Lim DO at OR [facility] Left: Abdomen [employer] [id number] 11/25/2023 S220GH / / [id number] Syr Pf 2ml Embospheres 100-300 - [id number] Implanted:Qty: 1 on 03/28/2022 at [facility] [employer] [id number] 08/31/2024 S220GH / / [id number] -[id number] Clareon Iol Aspheric Hydrophobic Acrylic Iol Implanted:Qty: 1 on 04/02/2023 by Cody Gonzalez DO at OR [facility] Right: Eye JAZMIN 11/12/2025 CNA0T0 / [id number] / documented as of this encounter Advance Directives Documents on File Type Date Recorded Patient Toy Stuffer Expl anation Advance Directives and Living Will 12/11/2022 ADVANCE DIRECTIVE / LIVING WILL LIVING WILL Power of Forensic Science Technician 12/11/2022 POWER OF A TTORNEY Latest [...] the patient have Health Care Power of Forensic Science Technician? No Full Code 07/22/2014 9:56 PM 07/24/2014 8:18 PM This order reflects the patients wishes and were consensually agreed upon. Question Answer Comments Discussion of Advance Directives occurred with: Patient Does the patient have a Living Will? No Does the patient have Health Care Power of Forensic Science Technician? No Care Teams Ict Quality Assurance Engineer Relationship Specialty Start Date End Date Francisco Cisse MD [address] [place] [address] PCP - General Internal Medicine 09/04/21 documented as of this encounter
--- OUTSIDE RECORDS SUMMARY | 2023-11-26 12:43 | External Medical Summary | Summary of Care ---
Author Name Unknown Organization [facility] Address [address] [facility] [place] [address] Phone [phone] Care Team Providers Care Bread Dumper Name Role Phone Francisco Cisse MD Primary Care Provider + Reason for Referral * Evaluate & Treat - Unlimited Visits (Within 3 days (urgent)) - Authorized Specialty Diagnoses / Procedures Referred By Chacho fleming Referred To Contact Neuro/Ortho Surgery - Spine. / Neurological Surgery Diagnoses Other closed fracture of twelfth thoracic vertebra, initial encounter ([facility]) Closed fracture of eleventh thoracic vertebra, unspecified fracture morphology, initial encounter ([facility]) Closed unstable burst fracture of twelfth thoracic vertebra, initial encounter ([facility]) Francisco Cisse MD [address] [facility] [place] [address] Referral ID Status Reason Start Date Expiration Date Visits Requested Visits Authorized [id number] Authorized Specialty Services Required 07/25/2023 999 999 [...] 07/24/2023 Telephone General Internal Medicine [place] [address] [facility] [place] [address] Francisco Cisse MD [address] [facility] [place] [address] NORA (//); Advice (Pre op Clearance ); [...] of twelfth thoracic vertebra, initial encounter ([facility]) Take 1 Tablet by mouth in the morning and 1 Tablet in the evening. 30 Tablet 1 07/12/2023 Active oxyCODONE HCl 5 MG Oral Tablet (Oxy IR)Indications:Othe r closed fracture of twelfth thoracic vertebra, initial encounter ([facility]) Take 1 Tablet by mouth every 6 [...] mRNA, LNP-s, No Pre serve, 2-Dose Series (Side.Cr) 03/08/2021,02/15/2021 HepA Inact/HepB Recomb>=18yrs old 12/04/2019,04/2019,05/20/2019 11/19/2019 [...] encounter Miscellaneous Notes * Addendum Note - Francisco Cisse MD - 07/25/2023 3:35 PM EDTAddended by: FRANCISCO CISSE on: 07/25/2023 03:35 PM Modules accepted: Orders * Telephone Encounter - Francisco Cisse MD - 07/25/2023 3:30 PM EDT I placed urgent spinal surgery referral, needs to go to [place] please!!! Please have all ct t spine and lumbar spine and mri pushed to our system. Would also recommend he have a disc burned of all films from [facility] If there is a delay to getting into spinal surgery in [place], let me know. Go to [facility] er if pain worsens, or weakness GI - FYI I called Dr. Lockhart's office to speak to Sue, or Dr. Lockhart. I left message to return call. If they call back please: Let them know due to his chronic medical issues with liver, fluid balance, etc, GI recommended [facility] for surgery Can cancel upcoming surgery there for now * Telephone Encounter - Michelle Nash RN - 07/25/2023 3:20 PM EDT Spoke with patient. He would like to proceed with scheduling surgery at [place] as he would feel more comfortable having done within [facility] system. He is concerned about taking the [...] needs to contact Dr. Lockhart himself. Dr. Cisse-FYI. Please advise if he will need to notify Dr. Lockhart's office. Thank you! * Telephone Encounter - Michelle Nash RN - 07/25/2023 1:33 PM EDT LVM for patient to return call to discuss below. * Telephone Encounter - Francisco Cisse MD - 07/25/2023 12:12 PM EDT Michelle, Can we call Carlos - reviewed case and is worried he will decompensate quickly after surgery. Theyare recommend he go see surgery in [place] for evaluation. They would like his ortho records urgently looked at by the spine surgeons at [place] and see if they will OK admission and surgery there.Is he willing to do that? They feel safer. If not, they would need to do surgery here at [facility] and [facility] would recommend he be admitted about 24 hours prior to surgery to tune him up and get consults prior with GI and nephrology let me know * Telephone Encounter - JEFF Mccabe - 07/25/2023 9:51 AM EDT I recommend that he under spine surgery in [place]. Even with excellent medical management, his cirrhosis will likely decompensate and he should be medically managed in an IP setting by a front desk team member and optical fabricator perioperatively. * Telephone Encounter - Michelle Nash RN - 07/25/2023 9:20 AM EDT Called and spoke with patient regarding below. He is not having any chest pain, shortness of breath, COOK or swelling of the hands/abdomen/LE at present time. He has not received his oxygen from [facility] yet but he is aware of the recommendations from pulmonology. He will hold all supplements and NSAIDS as advised. He reports he is not currently using the repaglinide and will not resume this. He will only take 1/2 of his lantus the night prior to surgery. CM will send these recommendations to the patient as a message in [employer] as well. Dr. Tanna MELENDEZ. Please advise [...] op clearance. Please contact back pt at [phone] regarding a pre op clearance appointment. Thank you. * Telephone Encounter - Brittany Suresh LPN - 07/24/2023 2:03 PM EDT Provider to address: message Reason for Call: NORA (//) Contact: Telephone Call Contact Type: Follow-up Outcome: Called Sue @ [facility] [place]. Said the patient needs a T10 to [...] 12:01 PM EDT Lyndsay is calling from [facility] in regards to adding him [...] Specialty Care Team Description 07/29/2023 Telemedicine Dermatology [place], Pharmacist Dermatology [address] [place] [address] 08/08/2023 Imaging Radiology 08/30/2023 Office Visit Gastroenterology Lamar Tatum CRNP [address] [place] [address] 09/30/2023 Office Visit Hematology Oncology Jennifer Ramires MD [address] [place] [address] 10/08/2023 Procedure Only Urology Frank Peraza MD [address] [place] [address] [place] [address] 10/11/2023 Office Visit Internal Medicine Joaquin Snider PA-C [address] [place] [address] 06/11/2024 Office Visit Ophthalmology Cody Gonzalez, [address] [place] [address] Scheduled Referrals Name Type Priority Associated Diagnoses [...] Additional history exists CKD PHOS USE SMARTSET 78620 01/28/202401/03, 07/26/2022, 12/05/2021, Additional history exists DIABETES-FOOT EXAM 03/06/2024 03/06/2023, 0 01/03/2022, 03/02/2021, Additional history exists Albumin/Creatinine Ratio 07/12/2024 023, 10/01/2022, 09/11/2021, Additional history exists CKD HGB USE SMARTSET 12182 07/24/202407/24, 07/12/2023, 07/12/2023, Additional history exists COLONOSCOPY-EVERY [...] encounter Medical Devices Implanted Type Area Supervisor Cellars Device Identifier Shelf Expiration Date Model / Serial / Lot Clareon Iol Aspheric Hydrophobic Acrylic Iol Implanted:Qty: 1 on 04/23/2023 by Cody Gonzalez DO at OR [facility] Lens Left: Eye 11/12/2025 CNA0T0 / [id number] / Viatorr Tips Endoprosthesis 8-10 Mm X 8cm / 2cm Implanted:Qty: 1 on 10/07/2020 by Go Alvarado MD at [facility] Right: Abdomen 03/03/2023 [id number] / / [id number] Description:Viatorr TIPS End oprosthesis 8-10 mm x 8cm / 2cm, Manufactored by [employer] Syr Pf 2ml Embospheres 100-300 - [id number] Implanted:Qty: 1 on 04/18/2021 by Kevin Lim DO at OR [facility] Left: Abdomen [employer] [id number] 11/25/2023 S220GH / / [id number] Syr Pf 2ml Embospheres 100-300 - [id number] Implanted:Qty: 1 on 03/28/[address] [facility] [employer] [id number] 08/31/2024 S220 / / [id number] -5 Clareon Iol Aspheric Hydrophobic Acrylic Iol Implanted:Qty: 1 on 04/02/2023 by Cody Gonzalez DO at OR [facility] Right: Eye JAZMIN 11/12/2025 CNA0T0 / [id number] / documented as of this encounter Visit Diagnoses Diagnosis Other closed fracture of twelfth thoracic vertebra, initial encounter (HCC)- Primary Closed fracture of eleventh thoracic vertebra, unspecified fracture morphology, initial encounter ([facility]) Closed unstable burst fracture of twelfth thoracic vertebra, initial encounter ([facility]) documented in this encounter Advance Directives Documents on File Type Date Recorded Patient Cloth Mercerizing Supervisor Expl anation Advance Directives and Living Will 12/11/2022 ADVANCE DIRECTIVE / LIVING WILL LIVING WILL Power of Airfield Manager 12/11/2022 POWER OF A TTORNEY Latest [...] the patient have Health Care Power of Airfield Manager? No Full Code 07/22/2014 9:56 PM 07/24/2014 8:18 PM This order reflects the patients wishes and were consensually agreed upon. Question Answer Comments Discussion of Advance Directives occurred with: Patient Does the patient have a Living Will? No Does the patient have Health Care Power of Airfield Manager? No Care Teams Bread Dumper Relationship Specialty Start Date End Date Francisco Cisse MD [address] [place] [address], [place] [phone] PCP - General Internal Medicine 09/04/21 documented as of this encounter
--- OUTSIDE RECORDS SUMMARY | 2023-11-26 12:44 | External Medical Summary | Summary of Care ---
Author Name Unknown Organization [facility] Address [address] [place] [address] Phone [phone] Care Team Providers Care Receiving Dock Checker Name Role Phone Francisco Cisse MD Primary Care Provider + Reason for Referral * Evaluate & Treat - Unlimited Visits (Within 10 days (routine)) - Authorized Specialty Diagnoses / Procedures Referred By Chacho fleming Referred To Contact Pharmacist / Pharmacy Diagnoses Psoriasis Loni Gallardo MD [address] [place] [address] Referral ID Status Reason Start Date Expiration Date Visits Requested Visits Authorized [id number] Authorized Specialty Services Required 07/02/2023 99 99 [...] have his medication therapy managed by the [facility] Medication Therapy Disease Management Clinic ([facility]) per established policies, procedures, and protocols. I also certify that this referral may serve as an initiation of service for the management of drug therapy in the above noted patient. [facility] providers will be responsible for scheduling patient visits, obtaining appropriate laboratory studies, and adjusting medication management therapy per patient's need, in addition to those roles spelled out in the clinic policy, procedures, and drug management protocols. I understand that the service provided by the [facility] Clinic is voluntary and have informed patient that they can refuse the service at their discretion. I am aware that the [facility] Clinic will provide me with a copy of the patient encounter via my [employer] InBasket. I authorize the [facility] Clinic to carry out these activities on my behalf. I consider this program to be a necessary part of the patient's medical care. Encounter Details Date Type Department Care Team Description 06/29/2023 Telephone Dermatology [place] [address] [place] [address] Loni Gallardo MD [address] [facility] [place] [address] Allergies No known active allergiesdocumented as of [...] goal of less than 7.0% ([facility]) Use to test blood sugars [...] mRNA, LNP-s, No Pre serve, 2-Dose Series ([employer]) 03/08/2021,02/15/2021 HepA Inact/HepB Recomb>=18yrs old 12/04/2019,04/2019,05/20/2019 [...] Saturday. When responding, please reply to the Derm/Mohs [place] Clio Pool [[id number]]. Thanks! ESTELLE Mcbride * Telephone Encounter - [...] week. * Telephone Encounter - Kristen Almanza RPh - 07/19/2023 3:37 PM EDT Dermatology Pharmacist Appointment Request Homelight unit has shipped. Please schedule telephonic light education visit with patient. Department & Provider: Dermatology [facility] [[id number]] - Pharmacist Dermatology [place] [[id number]] Patient to be scheduled for visit type:Telephonic [[id number]] Length of visit: 30 mins Time Frame: within ~1-2 weeks Please route this encounter back to Dermatology Pharmacist Pool [[id number]] if unable to schedule patient after 3 attempts. Puneet MaldonadoD,BCACP Medication Therapy Disease Management Dermatology Department 07/19/2023, 3:38 PM * Telephone Encounter - Kristen Almanza RPh - 07/02/2023 9:57 AM EDT Order submitted to ID: [id number] Kristen Almanza, PharmD,BCACP Medication Therapy Disease Management Dermatology Department 07/02/2023, 9:57 AM * Telephone Encounter - Loni Gallardo MD - 06/29/2023 12:59 PM EDT Dermatology Pre-Cert Request Medication/Disease State Information: Medication: Home UVB: Panosol 3D - full body, 10 lamp/6ft, II; Fair skin, blue eyes. Mata easily, bennett poorly Diagnosis (including ICD-10): Psoriasis - Psoriasis vulgaris L40.0 Site of Care: specialty medication - route to [id number]. Referral to pharmacist for: Pharmacist Co-management See corresponding visit note(s) for additional supporting clinical information. Office Information: Prescriber: Loni Gallardo MD documented in this encounter Plan of Treatment Upcoming Encounters Date Type Specialty Care Team Description 07/29/2023 Telemedicine Dermatology [place], Pharmacist Dermatology [address] [place] [address] 08/08/2023 Imaging Radiology 08/30/2023 Office Visit Gastroenterology Lamar Tatum CRNP [address] [place] [address] 09/30/2023 Office Visit Hematology Oncology Jennifer Ramires MD [address] [place] [address] 10/08/2023 Procedure Only Urology Frank Peraza MD [address] [place] [address] [place] [address] 10/11/2023 Office Visit Internal Medicine Joaquin Snider PA-C [address] [place] [address] 06/11/2024 Office Visit Ophthalmology Cody Gonzalez, DO [address] [facility] [address] [place] [address] Scheduled Referrals Name Type Priority Associated Diagnoses [...] Additional history exists CKD PHOS USE SMARTSET 65811 01/28/202401/03, 07/26/2022, 12/05/2021, Additional history exists DIABETES-FOOT EXAM 03/06/2024 03/06/2023, 0 01/03/2022, 03/02/2021, Additional history exists Albumin/Creatinine Ratio 07/12/2024 023, 10/01/2022, 09/11/2021, Additional history exists CKD HGB USE SMARTSET 31207 07/24/202407/24, 07/12/2023, 07/12/2023, Additional history exists COLONOSCOPY-EVERY [...] this encounter Medical Devices Implanted Type Area Decaler Device Identifier Shelf Expiration Date Model / Serial / Lot Clareon Iol Aspheric Hydrophobic Acrylic Iol Implanted:Qty: 1 on 04/23/2023 by Cody Gonzalez DO at OR [facility] Lens Left: Eye 11/12/2025 CNA0T0 / [id number] / Viatorr Tips Endoprosthesis 8-10 Mm X 8cm / 2cm Implanted:Qty: 1 on 10/07/2020 by Go Alvarado MD at [facility] Right: Abdomen 03/03/2023 [id number] / / [id number] Description:Viatorr TIPS End oprosthesis 8-10 mm x 8cm / 2cm, Manufactored by [employer] Syr Pf 2ml Embospheres 100-300 - [id number] Implanted:Qty: 1 on 04/18/2021 by Kevin Lim DO at OR [facility] Left: Abdomen [employer] [id number] 11/25/2023 S220GH / / [id number] -5 Syr Pf 2ml Embospheres 100-300 - [id number] Implanted:Qty: 1 on 03/28/2022 at [facility] [employer] [id number] 08/31/2024 S220GH / / [id number] -5 Clareon Iol Aspheric Hydrophobic Acrylic Iol Implanted:Qty: 1 on 04/02/2023 by Cody Gonzalez DO at OR [facility] Right: Eye JAZMIN 11/12/2025 CNA0T0 / [id number] / documented as of this encounter Visit Diagnoses Diagnosis Psoriasis- Primary Other psoriasis documented in this encounter Advance Directives Documents on File Type Date Recorded Patient Science Technician Expl anation Advance Directives and Living Will 12/11/2022 ADVANCE DIRECTIVE / LIVING WILL LIVING WILL Power of Milling Operator 12/11/2022 POWER OF A TTORNEY Latest [...] the patient have Health Care Power of Milling Operator? No Full Code 07/22/2014 9:56 PM 07/24/2014 8:18 PM This order reflects the patients wishes and were consensually agreed upon. Question Answer Comments Discussion of Advance Directives occurred with: Patient Does the patient have a Living Will? No Does the patient have Health Care Power of Milling Operator? No Care Teams Receiving Dock Checker Relationship Specialty Start Date End Date Francisco Cisse MD [address] [facility] [place], [place] [address] PCP - General Internal Medicine 09/04/21 documented as of this encounter
--- OUTSIDE RECORDS SUMMARY | 2023-11-26 12:44 | External Medical Summary | Summary of Care ---
Author Name Unknown Organization [facility] Address [address] [place] [address] Phone [phone] Care Team Providers Care Food Broker Name Role Phone Francisco Cisse MD Primary Care Provider + Reason for Referral * Evaluate & Treat - Unlimited Visits (Within 10 days (routine)) - Authorized Specialty Diagnoses / Procedures Referred By Chacho fleming Referred To Contact Pharmacist / Pharmacy Diagnoses Psoriasis Loni Gallardo MD 200 [place] [address] Referral ID Status Reason Start Date Expiration Date Visits Requested Visits Authorized [id number] Authorized Specialty Services Required 07/02/2023 99 99 [...] have his medication therapy managed by the [facility] ([facility]) per established policies, procedures, and protocols. I also certify that this referral may serve as an initiation of service for the management of drug therapy in the above noted patient. [facility] providers will be responsible for scheduling patient visits, obtaining appropriate laboratory studies, and adjusting medication management therapy per patient's need, in addition to those roles spelled out in the clinic policy, procedures, and drug management protocols. I understand that the service provided by the [facility] is voluntary and have informed patient that they can refuse the service at their discretion. I am aware that the [facility] will provide me with a copy of the patient encounter via my [employer] InBasket. I authorize the [facility] to carry out these activities on my behalf. I consider this program to be a necessary part of the patient's medical care. Encounter Details Date Type Department Care Team Description 06/29/2023 Telephone Dermatology George Blankenship [place] [address] [place] [address] Loni Gallardo MD 200 [facility] [place] [address] Allergies No known active allergiesdocumented as of this encounter (statuses as of 07/19/2023) Medications Medication Sig Dispensed Refills Start Date [...] as of this encounter (statuses as of 07/19/2023) Active Problems Problem Noted Date Closed T12 [...] as of this encounter (statuses as of 07/19/2023) Resolved Problems Problem Noted Date Resolved Date [...] as of this encounter (statuses as of 07/19/2023) Immunizations Name Administration Dates Next Due COVID-19 mRNA, LNP-s, No Pre serve, 2-Dose Series (convoy therapeutics) 03/08/2021,02/15/2021 HepA Inact/HepB Recomb>=18yrs old 12/04/2019,04/2019,05/20/2019 11/19/2019 [...] visit with patient. Department & Provider: Dermatology [facility] [[id number]] - Pharmacist [facility] [[id number]] Patient to be scheduled for visit type:Telephonic [[id number]] Length of visit: 30 mins Time Frame: within ~1-2 weeks Please route this encounter back to Dermatology Pharmacist Pool [[id number]] if unable to schedule patient after 3 attempts. Kristen Almanza PharmD,JODIE Medication Therapy Disease Management Dermatology Department 07/19/2023, 3:38 PM * Telephone Encounter - Kristen Almanza RPh - 07/02/2023 9:57 AM EDT Order submitted to ID: [id number] Kristen Almanza PharmD,BCALALIT Medication Therapy Disease Management Dermatology Department 07/02/2023, 9:57 AM * Telephone Encounter - Loni Gallardo MD - 06/29/2023 12:59 PM EDT Dermatology Pre-Cert Request Medication/Disease State Information: Medication: Home UVB: Panosol 3D - full body, 10 lamp/6ft, II; Fair skin, blue eyes. Mata easily, bennett poorly Diagnosis (including ICD-10): Psoriasis - Psoriasis vulgaris L40.0 Site of Care: specialty medication - route to [id number]. Referral to pharmacist for: Pharmacist Co-management See corresponding visit note(s) for additional supporting clinical information. Office Information: Prescriber: Loni Gallardo MD documented in this encounter Plan of Treatment Upcoming Encounters Date Type Specialty Care Team Description 08/08/2023 Imaging Radiology 08/30/2023 Office Visit Gastroenterology Lamar Tatum CRNP [address] [place] [address] 09/30/2023 Office Visit Hematology Oncology Jennifer Ramires MD 200 [place] [address] 10/08/2023 Procedure Only Urology Frank Peraza MD 27 [facility] [address] [place] [address] 10/11/2023 Office Visit Internal Medicine Joaquin Snider PA-C 200 [place] [address] 06/11/2024 Office Visit Ophthalmology Cody Gonzalez DO [address] [place] [address] Scheduled Referrals Name Type Priority [...] 11/27/2023 05/28/2023, 01/03, 10/10/2022, Additional history exists GFR 01/12/2024 07/12/2023, 06/02, 06/24/2023, Additional history exists DIABETES-EYE EXAM 01/17/2024 01/17/2023, , 01/17/2023, Additional history exists CKD PHOS USE SMARTSET 84073 01/28/202401/03, 07/26/2022, 12/05/2021, Additional history exists DIABETES-FOOT EXAM 03/06/2024 03/06/2023, 0 01/03/2022, 03/02/2021, Additional history exists Albumin/Creatinine Ratio 07/12/2024 023, 10/01/2022, 09/11/2021, Additional history exists CKD HGB USE SMARTSET 38587 07/12/202407/12, 07/12/2023, 07/03/2023, Additional history exists COLONOSCOPY-EVERY 3 YRS AGES [...] this encounter Medical Devices Implanted Type Area Social Service Agency Director Device Identifier Shelf Expiration Date Model / Serial / Lot Clareon Iol Aspheric Hydrophobic Acrylic Iol Implanted:Qty: 1 on 04/23/2023 by Cody Gonzalez DO at OR [facility] Lens Left: Eye 11/12/2025 CNA0T0 / [id number] / Viatorr Tips Endoprosthesis 8-10 Mm X 8cm / 2cm Implanted:Qty: 1 on 10/07/2020 by Go Alvarado MD at [facility] Right: Abdomen 03/03/2023 [id number] / / [id number] Description:Viatorr TIPS End oprosthesis 8-10 mm x 8cm / 2cm, Manufactored by [employer] Syr Pf 2ml Embospheres 100-300 - [id number] Implanted:Qty: 1 on 04/18/2021 by Kevin Lim DO at OR [facility] Left: Abdomen [employer] [id number] 11/25/2023 S220GH / / [id number] Syr Pf 2ml Embospheres 100-300 - [id number] Implanted:Qty: 1 on 03/28/2022 at [facility] [employer] [id number] 08/31/2024 S220GH / / [id number] -[id number] Clareon Iol Aspheric Hydrophobic Acrylic Iol Implanted:Qty: 1 on 04/02/2023 by Cody Gonzalez DO at OR [facility] Right: Eye JAZMIN 11/12/2025 CNA0T0 / [id number] / documented as of this encounter Visit Diagnoses Diagnosis Psoriasis- Primary Other psoriasis documented in this encounter Advance Directives Documents on File Type Date Recorded Patient Data Security Analyst Expl anation Advance Directives and Living Will 12/11/2022 ADVANCE DIRECTIVE / LIVING WILL LIVING WILL Power of Adolescent Coordinator 12/11/2022 POWER OF A TTORNEY Latest Code [...] the patient have Health Care Power of Adolescent Coordinator? No Full Code 07/22/2014 9:56 PM 07/24/2014 8:18 PM This order reflects the patients wishes and were consensually agreed upon. Question Answer Comments Discussion of Advance Directives occurred with: Patient Does the patient have a Living Will? No Does the patient have Health Care Power of Adolescent Coordinator? No Care Teams Food Broker Relationship Specialty Start Date End Date Francisco Cisse MD [address] [place] [address] PCP - General Internal Medicine 09/04/21 documented as of this encounter
--- OUTSIDE RECORDS SUMMARY | 2023-11-26 12:44 | External Medical Summary | Summary of Care ---
Author Name Unknown Organization [facility] Address [address] [facility] [address] Phone [phone] Care Team Providers Care Shore Working Supervisor Name Role Phone Francisco Cisse MD Primary Care Provider + Reason for Visit * Reason Onset Date Comments Test Results 07/24/2023 Nocturnal pulse ox Encounter Details Date Type Department Care Team Description 07/24/2023 Telephone Pulmonary Medicine, [facility] [address] [facility] [place] [address] Jordan Stanley MD [address] [facility] [place] [address] Test Results (Nocturnal pulse ox) Allergies No known active allergiesdocumented as of this encounter (statuses as of 07/24/2023) Medications Medication Sig Dispensed Refills Start Date [...] fracture of twelfth thoracic vertebra, initial encounter ([facility]) Take 1 Tablet by mouth in the morning and 1 Tablet in the evening. 30 Tablet 1 07/12/2023 Active oxyCODONE HCl 5 MG Oral Tablet (Oxy IR)Indications:Othe r closed fracture of twelfth thoracic vertebra, initial encounter ([facility]) Take 1 Tablet by mouth [...] as of this encounter (statuses as of 07/24/2023) Active Problems Problem Noted Date Closed T12 [...] as of this encounter (statuses as of 07/24/2023) Resolved Problems Problem Noted Date Resolved Date [...] as of this encounter (statuses as of 07/24/2023) Immunizations Name Administration Dates Next Due COVID-19 [...] encounter Miscellaneous Notes * Telephone Encounter - Anna Hernandez LPN - 07/24/2023 2:04 PM EDT Pt made aware of the results. He states that [facility] had contacted him about delivering equipment, but he did not know what it was for so he declined it. He will call them back to get it delivered now. He will call the office if he has any problems. * Telephone Encounter - Anna Hernandez LPN - 07/24/2023 1:59 PM EDT ----- Message from Lyn Garibay LPN sent at 07/24/2023 1:21 PM EDT ----- ----- Message ----- From: Jordan Stanley MD Sent: 07/10/2023 3:35 PM EDT To: Rosa Sandoval LPN, Lyn L ANA Garibay Your recent nocturnal pulse oximetry study showed episodes of significant drops in oxygen levels through the night. We would recommend use of oxygen therapy while sleeping at night. Prescription will be submitted to a [employer] equipment [employer], who will be contacting you for set up home oxygen for nighttime use. Please contact the office with any additional questions. Sincerely Dr. Stanley documented in this encounter Plan of Treatment Upcoming Encounters Date Type Specialty Care Team Description 08/08/2023 Imaging Radiology 08/30/2023 Office Visit Gastroenterology Lamar Tatum CRNP [address] [place] [address] 09/30/2023 Office Visit Hematology Oncology Jennifer Ramires MD 200 [facility] [place] [address] 10/08/2023 Procedure Only Urology Frank Peraza MD [address] [address] [place] [address] 10/11/2023 Office Visit Internal Medicine Joaquin Snider PA-C 200 [facility] [place] [address] 06/11/2024 Office Visit Ophthalmology Cody Gonzalez DO [...] Additional history exists CKD PHOS USE SMARTSET 57182 01/28/202401/03, 07/26/2022, 12/05/2021, Additional history exists DIABETES-FOOT EXAM 03/06/2024 03/06/2023, 0 01/03/2022, 03/02/2021, Additional history exists Albumin/Creatinine Ratio 07/12/2024 023, 10/01/2022, 09/11/2021, Additional history exists CKD HGB USE SMARTSET 81723 07/12/202407/12, 07/12/2023, 07/03/2023, Additional history exists COLONOSCOPY-EVERY [...] this encounter Medical Devices Implanted Type Area Child Welfare Assistant Device Identifier Shelf Expiration Date Model / Serial / Lot Clareon Iol Aspheric Hydrophobic Acrylic Iol Implanted:Qty: 1 on 04/23/2023 by Cody Gonzalez DO at OR [facility] Lens Left: Eye 11/12/2025 CNA0T0 / [id number] / Viatorr Tips Endoprosthesis 8-10 Mm X 8cm / 2cm Implanted:Qty: 1 on 10/07/2020 by Go Alvarado MD at [facility] Right: Abdomen 03/03/2023 [id number] / / [id number] Description:Viatorr TIPS End oprosthesis 8-10 mm x 8cm / 2cm, Manufactored by [employer] Syr Pf 2ml Embospheres 100-300 - [id number] Implanted:Qty: 1 on 04/18/2021 by Kevni Lim DO at OR [facility] Left: Abdomen [employer] [id number] 11/25/2023 S220GH / / [id number] -5 Syr Pf 2ml Embospheres 100-300 - [id number] Implanted:Qty: 1 on 03/28/2022 at [facility] [employer] [id number] 08/31/2024 S220GH / / [id number] -5 Clareon Iol Aspheric Hydrophobic Acrylic Iol Implanted:Qty: 1 on 04/02/2023 by Cody Gonzalez DO at OR [facility] Right: Eye JAZMIN 11/12/2025 CNA0T0 / [id number] / documented as of this encounter Advance Directives Documents on File Type Date Recorded 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 No Full Code 07/22/2014 9:56 PM 07/24/2014 8:18 PM This order reflects the patients wishes and were consensually agreed upon. Question Answer Comments Discussion of Advance Directives occurred with: Patient Does the patient have a Living Will? No Does the patient have Health Care Power of Esthetician/Spa Coordinator? No Care Teams Shore Working Supervisor Relationship Specialty Start Date End Date Francisco Cisse MD [address] [place] [address] PCP - General Internal Medicine 09/04/21 documented as of this encounter
--- OUTSIDE RECORDS SUMMARY | 2023-11-26 12:44 | External Medical Summary | Summary of Care ---
Author Name Unknown Organization [facility] Address [address] [place] [address] Phone [phone] Care Team Providers Care Real Estate Valuer Name Role Phone Francisco Cisse MD Primary Care Provider + Reason for Referral * Evaluate & Treat - Unlimited Visits (Within 10 days (routine)) - Authorized Specialty Diagnoses / Procedures Referred By Chacho fleming Referred To Contact Pharmacist / Pharmacy Diagnoses Psoriasis Loni Gallardo MD 200 [place] [address] Referral ID Status Reason Start Date Expiration Date Visits Requested Visits Authorized [id number] Authorized Specialty Services Required 07/02/2023 99 99 [...] have his medication therapy managed by the [facility] Therapy Disease Management [facility] ([facility]) per established policies, procedures, and protocols. I also certify that this referral may serve as an initiation of service for the management of drug therapy in the above noted patient. [facility] providers will be responsible for scheduling patient visits, obtaining appropriate laboratory studies, and adjusting medication management therapy per patient's need, in addition to those roles spelled out in the clinic policy, procedures, and drug management protocols. I understand that the service provided by the [facility] is voluntary and have informed patient that they can refuse the service at their discretion. I am aware that the [facility] will provide me with a copy of the patient encounter via my [employer] InBasket. I authorize the [facility] to carry out these activities on my behalf. I consider this program to be a necessary part of the patient's medical care. Encounter Details Date Type Department Care Team Description 06/29/2023 Telephone Dermatology George Blankenship [place] [address] [place] [address] Loni Gallardo MD 200 [facility] [place] [address] Allergies No known active allergiesdocumented as of [...] mRNA, LNP-s, No Pre serve, 2-Dose Series (Dynamic [employer]) 03/08/2021,02/15/2021 HepA Inact/HepB Recomb>=18yrs old 12/04/2019,04/2019,05/20/2019 11/19/2019 PPD 06/18/2017, 3,01/09/2012,0306/2011 Pneumococcal Conjugate Vacc, 13 Valent (Prevnar) 05/01/2017 Pneumococcal Polysaccharide PPV23 (Pneumovax) 08/28/2022,10/25/2015,07/14/2012 Season Influenza, Quad, PF, Adjuvanted, 65+ Yrs, IM (FLUAD) 10/07/2020(Deferred: Patient Refused - pt says he already had his shot last month at [facility] Handy Lyons and Mckinley Cobian [...] encounter Miscellaneous Notes * Telephone Encounter - Kristen Almanza RP - 07/19/2023 3:37 PM EDT Dermatology Pharmacist Appointment Request Homelight unit has shipped. Please schedule telephonic light education visit with patient. Department & Provider: Dermatology [facility] [[id number]] - Pharmacist Haritha Aragon [[id number]] Patient to be scheduled for visit type:Telephonic [[id number]] Length of visit: 30 mins Time Frame: within ~1-2 weeks Please route this encounter back to Dermatology Pharmacist Pool [[id number]] if unable to schedule patient after 3 attempts. Kristen Almanza PharmD,JODIE Medication Therapy Disease Management Dermatology Department 07/19/2023, 3:38 PM * Telephone Encounter - Kristen Almanza RP - 07/02/2023 9:57 AM EDT Order submitted to ID: -[id number] Kristen Almanza PharmD,JODIE Medication Therapy Disease Management [...] of Care: specialty medication - route to [id number]. Referral to pharmacist for: Pharmacist Co-management See corresponding visit note(s) for additional supporting clinical information. Office Information: Prescriber: Loni Gallardo MD documented in this encounter Plan of Treatment Upcoming Encounters Date Type Specialty Care Team Description 08/08/2023 Imaging Radiology 08/30/2023 Office Visit Gastroenterology Lamar Tatum CRNP [address] [place] [address] 09/30/2023 Office Visit [facility]ematology Oncology [facility] [address] 10/08/2023 Procedure Only Urology Frank Peraza MD [address] [place] [address] [place] [address] 10/11/2023 Office Visit Internal Medicine Joaquin Snider PA-C 200 [facility] [place] [address] 06/11/2024 Office Visit Ophthalmology Cody Gonzalez DO [address] [place] [id number] Scheduled Referrals Name Type Priority Associated Diagnoses [...] Additional history exists CKD PHOS USE SMARTSET 48986 01/28/202401/03, 07/26/2022, 12/05/2021, Additional history exists DIABETES-FOOT EXAM 03/06/2024 03/06/2023, 0 01/03/2022, 03/02/2021, Additional history exists Albumin/Creatinine Ratio 07/12/2024 023, 10/01/2022, 09/11/2021, Additional history exists CKD HGB USE SMARTSET 39934 07/12/202407/12, 07/12/2023, 07/03/2023, Additional history exists COLONOSCOPY-EVERY [...] this encounter Medical Devices Implanted Type Area Sterile Tech Device Identifier Shelf Expiration Date Model / Serial / Lot Davidclementeon Iol Aspheric Hydrophobic Acrylic Iol Implanted:Qty: 1 on 04/23/2023 by Cody Gonzalez DO at OR [facility] Lens Left: Eye 11/12/2025 CNA0T0 / [id number] / Viatorr Tips Endoprosthesis 8-10 Mm X 8cm / 2cm Implanted:Qty: 1 on 10/07/2020 by Go Alvarado MD at [facility] Right: Abdomen 03/03/2023 [id number] / / [id number] Description:Viatorr TIPS End oprosthesis 8-10 mm x 8cm / 2cm, Manufactored by [employer] Syr Pf 2ml Embospheres 100-300 - [id number] Implanted:Qty: 1 on 04/18/2021 by Kevin Lim DO at OR [facility] Left: Abdomen [employer] [id number] 11/25/2023 S220GH / / [id number] -5 Syr Pf 2ml Embospheres 100-300 - [id number] Implanted:Qty: 1 on 03/28/2022 at [facility] [employer] [id number] 08/31/2024 S220GH / / [id number] -5 Clareon Iol Aspheric Hydrophobic Acrylic Iol Implanted:Qty: 1 on 04/02/2023 by Cody Gonzalez DO at OR [facility] Right: Eye JAZMIN 11/12/2025 CNA0T0 / [id number] / documented as of this encounter Visit Diagnoses Diagnosis Psoriasis- Primary Other psoriasis documented in this encounter Advance Directives Documents on File Type Date Recorded 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 No Full Code 07/22/2014 9:56 PM 07/24/2014 8:18 PM This order reflects the patients wishes and were consensually agreed upon. Question Answer Comments Discussion of Advance Directives occurred with: Patient Does the patient have a Living Will? No Does the patient have Health Care Power of Instructor Industrial Design? No Care Teams Real Estate Valuer Relationship Specialty Start Date End Date Francisco Cisse MD [address] [place] [address] PCP - General Internal Medicine 09/04/21 documented as of this encounter
--- OUTSIDE RECORDS SUMMARY | 2023-11-26 12:44 | External Medical Summary | Summary of Care ---
Author Name Unknown Organization [facility] Address [address] [place] [address] Phone [phone] Care Team Providers Care Hhas Name Role Phone Francisco Cisse MD Primary Care Provider + Reason for Visit * Reason Onset Date Comments case management 07/22/2023 Encounter Details Date Type Department Care Team Description 07/22/2023 Rose Grading Supervisor Telephone General Internal Medicine [facility] [address] Michelle Nash, RN [address] [place] [address] case management Allergies No known active allergiesdocumented as of this encounter (statuses as of 07/22/2023) Medications Medication Sig Dispensed Refills Start Date [...] twelfth thoracic vertebra, initial encounter ([facility]) Take 1 Tablet by mouth in the morning and 1 Tablet in the evening. 30 Tablet 1 07/12/2023 Active oxyCODONE HCl 5 MG Oral Tablet (Oxy IR)Indications:Othe r closed fracture of twelfth thoracic vertebra, initial encounter ([facility]) Take 1 Tablet by mouth every 6 [...] as of this encounter (statuses as of 07/22/2023) Active Problems Problem Noted Date Closed T12 [...] as of this encounter (statuses as of 07/22/2023) Resolved Problems Problem Noted Date Resolved Date [...] as of this encounter (statuses as of 07/22/2023) Immunizations Name Administration Dates Next Due COVID-19 mRNA, LNP-s, No Pre serve, 2-Dose Series ([employer]ats[employer]) 03/08/2021,02/15/2021 HepA Inact/HepB Recomb>=18yrs old 12/04/2019,04/2019,05/20/2019 11/19/2019 PPD 06/18/2017, 3,01/09/2012,06/2011 Pneumococcal Conjugate Vacc, 13 Valent (Prevnar) 05/01/2017 Pneumococcal Polysaccharide PPV23 (Pneumovax) 08/28/2022,10/25/2015,07/14/2012 Season Influenza, Quad, PF, Adjuvanted, 65+ Yrs, IM (FLUAD) 10/07/2020(Deferred: Patient Refused - pt says he already had his shot last month at [facility] Handy Lyons and Mckinley Cobian made [...] Telephone Encounter - Michelle Nash RN - 07/22/2023 4:04 PM EDT SITUATION: [facility] Tier 2 follow up ANDREW BACKGROUND: [facility] 06/25-06/27 and [facility] 06/27-07/03 s/p fall w/ injury [facility] ED 07/10 for back pain ASSESSMENT: Spoke with patient. Reports he is doing "okay". Has appointment scheduled tomorrow for CT scan at hospital to determine if needs surgery on back per Dr. Lockhart. Wearing his back brace at all times and using walker for ambulation. No new falls. Rating pain at 3 out of 10 today. Taking medications asprescribed. FBS was 175 today-reports his Lantus was increased to 22 units at [facility]. Updated this in Epic chart. Still using lactulose daily-having approximately 3 bm's a day. Denies increased confusion/AMS. No further issues at this time. RECOMMENDATION: Advised to notify PCP of worsening symptoms. Will plan to follow up again within one week. Michelle Nash RN General Internal Medicine [address] [place] [address] documented in this encounter Plan of Treatment Upcoming Encounters Date Type Specialty Care Team Description 08/08/2023 Imaging Radiology 08/30/2023 Office Visit Gastroenterology Lamar Tatum CRNP [address] [place] [address] 09/30/2023 Office Visit Hematology Oncology Jennifer Ramires MD [address] [facility] [place] [address] 10/08/2023 Procedure Only Urology Frank Peraza MD [address] [place] [address] [place] [address] 10/11/2023 Office Visit Internal Medicine Joaquin Snider PA-C [address] [facility] [place] [address] 06/11/2024 Office Visit Ophthalmology Cody Gonzalez DO [address] [place] [address] Health Maintenance Due Date Last [...] Additional history exists CKD PHOS USE SMARTSET 81552 01/28/202401/03, 07/26/2022, 12/05/2021, Additional history exists DIABETES-FOOT EXAM 03/06/2024 03/06/2023, 0 01/03/2022, 03/02/2021, Additional history exists Albumin/Creatinine Ratio 07/12/2024 023, 10/01/2022, 09/11/2021, Additional history exists CKD HGB USE SMARTSET 40236 07/12/202407/12, 07/12/2023, 07/03/2023, Additional history exists COLONOSCOPY-EVERY [...] this encounter Medical Devices Implanted Type Area Loss Prevention Specialist Device Identifier Shelf Expiration Date Model / Serial / Lot Clareon Iol Aspheric Hydrophobic Acrylic Iol Implanted:Qty: 1 on 04/23/2023 by Cody Gonzalez DO at OR [facility] Lens Left: Eye 11/12/2025 CNA0T0 / [id number] / Viatorr Tips Endoprosthesis 8-10 Mm X 8cm / 2cm Implanted:Qty: 1 on 10/07/2020 by Go Alvarado MD at [facility] Right: Abdomen 03/03/2023 [id number] / / [id number] Description:Viatorr TIPS End oprosthesis 8-10 mm x 8cm / 2cm, Manufactored by [employer] Syr Pf 2ml Embospheres 100-300 - [id number] Implanted:Qty: 1 on 04/18/2021 by Kevin Lim DO at OR [facility] Left: Abdomen [employer] [id number] 11/25/2023 S220GH / / [id number] -[id number] Syr Pf 2ml Embospheres 100-300 - [id number] Implanted:Qty: 1 on 03/28/2022 at [facility] [employer] [id number] 08/31/2024 S220GH / / [id number] -[id number] Clareon Iol Aspheric Hydrophobic Acrylic Iol Implanted:Qty: 1 on 04/02/2023 by Cody Gonzalez DO at OR [facility] Right: Eye JAZMIN 11/12/2025 CNA0T0 / [id number] / documented as of this encounter Visit Diagnoses Diagnosis Medical home patient encounter- Primary Other specified examination documented in this encounter Advance Directives Documents on File Type Date Recorded 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 No Full Code 07/22/2014 9:56 PM 07/24/2014 8:18 PM This order reflects the patients wishes and were consensually agreed upon. Question Answer Comments Discussion of Advance Directives occurred with: Patient Does the patient have a Living Will? No Does the patient have Health Care Power of Sea Captain? No Care Teams Hhas Relationship Specialty Start Date End Date Francisco Cisse MD [address] [place] [id number] PCP - General Internal Medicine 09/04/21 documented as of this encounter
--- OUTSIDE RECORDS SUMMARY | 2023-11-26 12:45 | External Medical Summary ---
Author Name Unknown Address Unknown Organization K09:[facility] [place] [address] Laboratory Report Ordering Provider Test Date Status SHREYA SEGUNDO 07/12/2023 12:36:38 Final Observation Date Value Abnormality Reference (Units ) Status SYNC LEUKOCYTES IN BLOOD BY AUTOMATED COUNT 07/12/2023 12:36:38 2.80 Below low normal 4.00-10.80 (K/uL) Final Segs 07/12/2023 12:36:38 58.2 40.0-75.0 (%) Final Lymphs % 07/12/2023 12:36:38 26.8 18.0-42.0 (%) Final Monos 07/12/2023 12:36:38 6.1 1.0-11.0 (%) Final Eosinophils 07/12/2023 12:36:38 8.2 Above high normal 0.0-6.0 (%) Final Basos 07/12/2023 12:36:38 0.7 0.0-2.0 (%) Final Absolute Segs 07/12/2023 12:36:38 1.63 Below low normal 1.80-7.70 (K/uL) Final Lymphs, absolute 07/12/2023 12:36:38 0.75 Below low normal 1.00-4.80 (K/ul) Final Monos, Abs 07/12/2023 12:36:38 0.17 0.00-1.10 (K/uL) Final Eos, Abs 07/12/2023 12:36:38 0.23 0.00-0.70 (K/uL) Final Basos, Abs 07/12/2023 12:36:38 0.02 0.00-0.20 (K/uL) Final Performing Location [facility] [place] [address]
--- OUTSIDE RECORDS SUMMARY | 2023-11-26 12:45 | External Medical Summary | Summary of Care ---
Author Name Unknown Organization [facility] Address [address] [facility] [place] [address] Phone [phone] Care Team Providers Care Physical Education Specialist Name Role Phone Francisco Cisse MD Primary Care Provider + Reason for Visit * Reason Onset Date Comments Test Results 07/12/2023 NPO results need ing O2 Encounter Details Date Type Department Care Team Description 07/12/2023 Telephone Pulmonary Medicine, [facility] [address] [facility] [place] [address] Jordan Stanley MD [address] [facility] [place] [address] Test Results (NPO results needing O2) Allergies No known active allergiesdocumented as of this encounter (statuses as of 07/12/2023) Medications Medication Sig Dispensed Refills Start Date [...] initial encounter ([facility]) Take 1 Tablet by mouth in the morning and 1 Tablet in the evening. 30 Tablet 1 07/12/2023 Active oxyCODONE HCl 5 MG Oral Tablet (Oxy IR)Indications:Othe r closed fracture of twelfth thoracic vertebra, initial encounter ([facility]) Take 1 Tablet by mouth every [...] as of this encounter (statuses as of 07/12/2023) Active Problems Problem Noted Date Closed T12 [...] as of this encounter (statuses as of 07/12/2023) Resolved Problems Problem Noted Date Resolved Date [...] as of this encounter (statuses as of 07/12/2023) Immunizations Name Administration Dates Next Due COVID-19 mRNA, LNP-s, No Pre serve, 2-Dose Series (Pfizer) 03/08/2021,02/15/2021 HepA Inact/HepB Recomb>=18yrs old 12/04/2019,04/2019,05/20/2019 11/19/2019 PPD 06/18/2017, 3,01/09/2012,06/2011 Pneumococcal Conjugate Vacc, 13 Valent (Prevnar) 05/01/2017 Pneumococcal Polysaccharide PPV23 (Pneumovax) 08/28/2022,10/25/2015,07/14/2012 Seasonal Influenza Virus Vac cine, Unspecified Formulation 09/15/2021,09/01/2019,09/04/2017,08/03,09/13/2014,08/10/2013,10/07/20 12,09/03/2011 Seasonal Influenza, Quadriva lent Hd, 65+ Yrs 09/30/2020 Seasonal Influenza, Quadriva lent, No Preserve, 6 Mons & Above, IM 09/04/2017 Seasonal Influenza, Quadriva lent, No Preserve, Adjuvanted, 65+ Yrs, IM 10/07/2020(Deferred: Patient Refused - pt says he already had his shot last month at [facility] Handy Lyons and Mckinley Cobian made aware) Seasonal Influenza, Quadriva lent, No Preserve, IM [...] encounter Miscellaneous Notes * Telephone Encounter - Rosa Sandoval LPN - 07/12/2023 2:38 PM EDT Order for O2 has been submitted to * Telephone Encounter - Rosa Sandoval LPN - 07/12/2023 2:29 PM EDT ----- Message from Jordan Stanley MD sent at 07/10/2023 3:35 PM EDT ----- Your recent nocturnal pulse oximetry study showed episodes of significant drops in oxygen levels through the night. We would recommend use of oxygen therapy while sleeping at night. Prescription will be submitted to a Active Scal[employer] equipment [employer], who will be contacting you for set up home oxygen for nighttime use. Please contact the office with any additional questions. Sincerely Dr. Stanley documented in this encounter Plan of Treatment Upcoming Encounters Date Type Specialty Care Team Description 08/08/2023 Imaging Radiology 08/30/2023 Office Visit Gastroenterology Lamar Tatum CRNP [address] [place] [address] 09/30/2023 Office Visit Hematology Oncology Jennifer Ramires MD [address] [facility] [address] 10/08/2023 Procedure Only Urology Frank Peraza MD [address] [place] [address] [place] [address] 10/11/2023 Office Visit Internal Medicine Joaquin Snider PA-C [address] [facility] [place] [address] 06/11/2024 Office Visit Ophthalmology Cody Gonzalez DO [address] [place] [address] Health Maintenance Due Date Last Done Comments Zoster Vaccines (1 of 2) 2000 COVID-19 Vaccine (3 - Pfizer risk series) 04/05/2021 03/08/2021, 02/15/2021 Depression Screening, Annual for Pts 12 and Over 05/03/2022 05/03/2021 Influenza Vaccine (FLU shot) (#1) 2023 09/15/2021, 09/15/2021, 09/30/2020, Additional history exists Albumin/Creatinine Ratio 10/01/2023 022, 09/11/2021, 11/30/2020, Additional history exists HbA1c 11/27/2023 05/28/2023, 01/03, 10/10/2022, Additional history exists GFR 01/12/2024 07/12/2023, 06/02, 06/24/2023, Additional history exists DIABETES-EYE EXAM 01/17/2024 01/17/2023, , 01/17/2023, Additional history exists CKD PHOS USE SMARTSET 99196 01/28/202401/03, 07/26/2022, 12/05/2021, Additional history exists DIABETES-FOOT EXAM 03/06/2024 03/06/2023, 0 01/03/2022, 03/02/2021, Additional history exists CKD HGB USE SMARTSET 40891 07/12/202407/12, 07/12/2023, 07/03/2023, Additional history exists COLONOSCOPY-EVERY [...] this encounter Medical Devices Implanted Type Area Service Person Device Identifier Shelf Expiration Date Model / Serial / Lot Clareon Iol Aspheric Hydrophobic Acrylic Iol Implanted:Qty: 1 on 04/23/2023 by Cody Gonzalez DO at OR [facility] Lens Left: Eye 11/12/2025 CNA0T0 / [id number] / Viatorr Tips Endoprosthesis 8-10 Mm X 8cm / 2cm Implanted:Qty: 1 on 10/07/2020 by Go Alvarado MD at [facility] Right: Abdomen 03/03/2023 [id number] / / [id number] Description:Viatorr TIPS End oprosthesis 8-10 mm x 8cm / 2cm, Manufactored by [employer] Syr Pf 2ml Embospheres 100-300 - [id number] Implanted:Qty: 1 on 04/18/2021 by Kevin Lim DO at OR [facility] Left: Abdomen [employer] [id number] 11/25/2023 S220GH / / [id number] -[id number] Syr Pf 2ml Embospheres 100-300 - [id number] Implanted:Qty: 1 on 03/28/2022 at [facility] [employer] [id number] 08/31/2024 S220GH / / [id number] -5 Clareon Iol Aspheric Hydrophobic Acrylic Iol Implanted:Qty: 1 on 04/02/2023 by Cody Gonzalez DO at OR [facility] Right: Eye JAZMIN 11/12/2025 CNA0T0 / [id number] / documented as of this encounter Advance Directives Documents on File Type Date Recorded Patient Manager Property Expl anation Advance Directives and Living Will 12/11/2022 ADVANCE DIRECTIVE / LIVING WILL LIVING WILL Power of Hand Tile Maker 12/11/2022 POWER OF A TTORNEY Latest Code [...] the patient have Health Care Power of Hand Tile Maker? No Full Code 07/22/2014 9:56 PM 07/24/2014 8:18 PM This order reflects the patients wishes and were consensually agreed upon. Question Answer Comments Discussion of Advance Directives occurred with: Patient Does the patient have a Living Will? No Does the patient have Health Care Power of Hand Tile Maker? No Care Teams Physical Education Specialist Relationship Specialty Start Date End Date Francisco Cisse MD [address] [place] [id number] PCP - General Internal Medicine 09/04/21 documented as of this encounter
--- OUTSIDE RECORDS SUMMARY | 2023-11-26 12:45 | External Medical Summary ---
Author Name Unknown Address Unknown Organization K01:[facility] - [address] [address] Laboratory Report Ordering Provider Test Date Status SHREYA SEGUNDO 07/12/2023 12:37:50 Final Normal: <30 mg/g creatinine< br/>High: 30-300 mg/g creatinine
Very High: >300 mg/g creatinine
Nephrotic: >2200 mg/g creatinine Observation Date Value Abnormality Reference (Units ) Status Albumin, Urine 07/12/2023 12:37:50 7.92 (mg/dL) Final Creatinine, Urine 07/12/2023 12:37:50 219 (mg/dL) Final Albumin/Creatinine [Mass Ratio] in Urine 07/12/2023 12:37:50 36 Above high normal <30 (mg/g Creat) Final Performing Location [facility] - [address] [place] [address]
--- OUTSIDE RECORDS SUMMARY | 2023-11-26 12:45 | External Medical Summary | Summary of Care ---
Author Name Unknown Organization [facility] Address [address] [place] [address] Phone [phone] Care Team Providers Care Wastewater Treatment Plant Supervisor Name Role Phone Francisco Cisse MD Primary Care Provider + Reason for Visit * Reason Onset Date Comments Other 07/17/2023 Oxygen Encounter Details Date Type Department Care Team Description 07/17/2023 Telephone Access Center, [place] [facility] [address] [facility] *DO NOT REMOVE THIS DEPARTMENT* [place] [address] Services, Scheduling [address] [place] [address] Other (Oxygen) Allergies No known active allergiesdocumented as of this encounter (statuses as of 07/17/2023) Medications Medication Sig Dispensed Refills Start Date [...] of less than 7.0% ([facility]) Use to test blood sugars 3 times [...] fracture of twelfth thoracic vertebra, initial encounter ([facility]) Take 1 Tablet by mouth in the morning and 1 Tablet in the evening. 30 Tablet 1 07/12/2023 Active oxyCODONE HCl 5 MG Oral Tablet (Oxy IR)Indications:Othe r closed fracture of twelfth thoracic vertebra, initial encounter ([facility]) Take 1 Tablet by mouth every 6 [...] as of this encounter (statuses as of 07/17/2023) Active Problems Problem Noted Date Closed T12 [...] as of this encounter (statuses as of 07/17/2023) Resolved Problems Problem Noted Date Resolved Date [...] as of this encounter (statuses as of 07/17/2023) Immunizations Name Administration Dates Next Due COVID-19 mRNA, LNP-s, No Pre serve, 2-Dose Series ([employer]) 03/08/2021,02/15/2021 HepA Inact/HepB Recomb>=18yrs old 12/04/2019,04/2019,05/20/2019 11/19/2019 [...] already had his shot last month at [facility] Handy Lyons and Mckinley Cobian made [...] Telephone Encounter - Rosa Sandoval LPN - 07/17/2023 1:08 PM EDT Pt aware [facility] contact him to set up the oxygen to wear at night * Telephone Encounter - ESTELLE Sandhu - 07/17/2023 12:31 PM EDT Patient called in and has questions about the oxygen that was order. Would like to speak with a nurse. Thank you. documented in this encounter Plan of Treatment Upcoming Encounters Date Type Specialty Care Team Description 08/08/2023 Imaging Radiology 08/30/2023 Office Visit Gastroenterology Lamar Tatum CRNP [address] [place] [address] 09/30/2023 Office Visit Hematology Oncology Jennifer Ramires MD 200 [place] [address] 10/08/2023 Procedure Only Urology Frank Peraza MD [address] [place] [address] 10/11/2023 Office Visit Internal Medicine Joaquin Snider PA-C 200 [facility] [place] [address] 06/11/2024 Office Visit Ophthalmology Cody Gonzalez DO [address] [facility] [place] [address] Health Maintenance Due Date Last [...] Additional history exists CKD PHOS USE SMARTSET 63155 01/28/202401/03, 07/26/2022, 12/05/2021, Additional history exists DIABETES-FOOT EXAM 03/06/2024 03/06/2023, 0 01/03/2022, 03/02/2021, Additional history exists Albumin/Creatinine Ratio 07/12/2024 023, 10/01/2022, 09/11/2021, Additional history exists CKD HGB USE SMARTSET 61963 07/12/202407/12, 07/12/2023, 07/03/2023, Additional history exists COLONOSCOPY-EVERY [...] this encounter Medical Devices Implanted Type Area Stained Glass Painter Device Identifier Shelf Expiration Date Model / Serial / Lot Clareon Iol Aspheric Hydrophobic Acrylic Iol Implanted:Qty: 1 on 04/23/2023 by Cody Gonzalez DO at OR [facility] Lens Left: Eye 11/12/2025 CNA0T0 / [id number] / Viatorr Tips Endoprosthesis 8-10 Mm X 8cm / 2cm Implanted:Qty: 1 on 10/07/2020 by Go Alvarado MD at [facility] Right: Abdomen 03/03/2023 [id number] / / [id number] Description:Viatorr TIPS End oprosthesis 8-10 mm x 8cm / 2cm, Manufactored by [employer] Syr Pf 2ml Embospheres 100-300 - [id number] Implanted:Qty: 1 on 04/18/2021 by Kevin Lim DO at OR [facility] Left: Abdomen [employer] [id number] 11/25/2023 S220GH / / [id number] -[id number] Syr Pf 2ml Embospheres 100-300 - [id number] Implanted:Qty: 1 on 03/28/2022 at [facility] [employer] [id number] 08/31/2024 S220GH / / [id number] -5 Clareon Iol Aspheric Hydrophobic Acrylic Iol Implanted:Qty: 1 on 04/02/2023 by Cody Gonzalez DO at OR [facility] Right: Eye JAZMIN 11/12/2025 CNA0T0 / [id number] / documented as of this encounter Advance Directives Documents on File Type Date Recorded Patient Alignment Specialist Expl anation Advance Directives and Living Will 12/11/2022 ADVANCE DIRECTIVE / LIVING WILL LIVING WILL Power of Airport Operations Specialist 12/11/2022 POWER OF A TTORNEY Latest [...] the patient have Health Care Power of Airport Operations Specialist? No Full Code 07/22/2014 9:56 PM 07/24/2014 8:18 PM This order reflects the patients wishes and were consensually agreed upon. Question Answer Comments Discussion of Advance Directives occurred with: Patient Does the patient have a Living Will? No Does the patient have Health Care Power of Airport Operations Specialist? No Care Teams Wastewater Treatment Plant Supervisor Relationship Specialty Start Date End Date Francisco Cisse MD [address] [place] [address] PCP - General Internal Medicine 09/04/21 documented as of this encounter
--- OUTSIDE RECORDS SUMMARY | 2023-11-26 12:45 | External Medical Summary ---
Author Name Unknown Address Unknown Organization K09:[facility] [place] [address] Laboratory Report Ordering Provider Test Date Status DO RATNAJAZMIN 07/12/2023 12:36:38 Final Observation Date Value Abnormality Reference (Units ) Status WBC, Total 07/12/2023 12:36:38 2.80 Below low normal 4. 00-10.80 (K/uL) Final RBC 07/12/2023 12:36:38 2.39 4.50-5.25 (M/uL) Final Hemoglobin 07/12/2023 12:36:38 8.1 Below low normal 14 .0-16.8 (g/dL) Final HCT 07/12/2023 12:36:38 25.5 Below low normal 40. 0-48.4 (%) Final MCV 07/12/2023 12:36:38 106.7 82.0-99.5 (fL) Final MCH 07/12/2023 12:36:38 33.9 27.0-34.0 (pg) Final MCHC 07/12/2023 12:36:38 31.8 32.0-36.0 (g/dL) Final RDW 07/12/2023 12:36:38 19.7 11.5-15.5 (%) Final Platelets 07/12/2023 12:36:38 84 Below low normal 140 -400 (K/uL) Final Consistent with previous res ults.
null MPV 07/12/2023 12:36:38 11.9 6.6-11.1 ( fL) Final Performing Location [facility] [place] [address]
--- OUTSIDE RECORDS SUMMARY | 2023-11-26 12:45 | External Medical Summary | Summary of Care ---
Author Name Unknown Organization [facility] Address [address] [address] Phone [phone] Care Team Providers Care Meal Packer Name Role Phone Francisco Cisse MD Primary Care Provider + Reason for Referral * Medication Prior Authorization - Closed Specialty Diagnoses / Procedures Referred By Contac t Referred To Contact Diagnoses Other closed fracture of twelfth thoracic vertebra, initial encounter ([facility]) Francisco Cisse MD [address] [place] [id number] Referral ID Status Reason Start Date Expiration Date Visits Re quested Visits Authorized [id number] Closed [id number] Reason for Visit * Reason Onset Date Comments Hospital Follow-Up ER follow up from [facility] d/c on 07/03/23. Was seen for back pain due to a fall 1 month prior that results in fx of his T12 spine. Pain level is 3 out of 10 today, has been taking oxycodone for relief. Hospital Follow-Up 07/12/2023 Encounter Details Date Type Department Care Team Description 07/12/2023 Office Visit General Internal Medicine State [facility] [address] [place] [address] [id number] Francisco Cisse MD [address] [id number] Hospital discharge follow-up*; Other closed fracture of twelfth thoracic vertebra, initial encounter ([facility]); Type 2 diabetes mellitus with hemoglobin A1c goal of less than 7.0% ([facility]); Type 2 diabetes mellitus with stage 3a chronic kidney disease, with long-term current use of insulin (HCC); Chronic kidney disease, stage 3a (HCC); Liver encephalopathy (HCC) Allergies No known active allergiesdocumented as [...] 06/05/2023 Active Furosemide 20 MG Oral Tablet (Lasix)Indications :Cirrhosis of liver with ascites, unspecified hepatic cirrhosis type (HCC) Take 2 Tablets by mouth in the morning. 60 Tablet 2 06/11/2023 Active Ondansetron HCl 4 MG Oral TabletIndications: Nausea without vomiting,Liver cell carcinoma (HCC),GAVE (gastric antral vascular ectasia) Take 1 Tablet by mouth every 8 hours as needed for Nausea. 30 Tablet 0 06/12/2023 Active Additional Information Patient not taking.Reported on 07/12/2023 Baclofen 5 MG Oral Tablet (Lioresal)Indicati ons:Other closed fracture of twelfth thoracic vertebra, initial encounter ([facility]) Take 1 Tablet by mouth in the morning and 1 Tablet in the evening. 30 Tablet 1 07/12/2023 Active oxyCODONE HCl 5 MG Oral Tablet (Oxy IR)Indications:Oth er closed fracture of twelfth thoracic vertebra, initial encounter ([facility]) Take 1 Tablet by mouth every 6 hours as needed for Pain, Severe. 28 Tablet 0 07/12/2023 Active oxyCODONE HCl 5 MG Oral Tablet (Oxy IR) 1 Tablet. 0 06/21/2023 3 Discontinue d(Refill) Hospital, Clinic, or Other [...] mRNA, LNP-s, No Pre serve, 2-Dose Series (Synthace) 03/08/2021,02/15/2021 HepA Inact/HepB Recomb>=18yrs old 12/04/2019,04/2019,05/20/2019 11/19/2019 [...] Sign Reading Time Taken Comments Blood Pressure 98/46 07/12/2023 12:10 PM EDT Pulse 60 07/12/2023 12:10 PM EDT Temperature 36.6 C (97.9 F) 07/12/2023 12:10 PM E DT Respiratory Rate - - Oxygen Saturation 98% 07/12/2023 12:10 PM EDT Inhaled Oxygen Concentration - - Weight 77.8 kg (171 lb 8 oz) 07/12/2023 12:10 PM EDT Height 175.3 cm (5' 9") 07/12/2023 12:10 PM EDT Body Mass Index 25.33 07/12/2023 12:10 PM EDT documented in this encounter Functional Status [...] as of this encounter Progress Notes * Francisco Cisse MD - 07/12/2023 12:32 PM EDT Chief Complaint Patient presents with Hospital Follow-Up ER follow up from [facility] d/c on 07/03/23. Was seen for back pain due to a fall 1 month prior that results in fx of his T12 spine. Pain level is 3 out of 10 today, has been taking oxycodone for relief. Hospital Follow-Up SUBJECTIVE: Luis Hale is a 73 year old male with PMH as below who presents for Hospital follow up. Admitted 06/14-06/21/23 after fall and back pain, found to have t12 fracture. Wasseen by ortho, who recommended conservative care vs surgery. He was put in brace, given baclofen and oxycodone, sent to rehab 06/21. In rehab, was not getting lactulose, not moving bowels and got confused, sent back to [facility] 06/25/23, given lactulose, moved bowels, improved mentation sent back to rehab at [facility] 06/27/23 where he was until 07/03/23. Was doing at home until 07/10/23 when pain got bad so instead of doing out patient CT for ortho went to er, where did ct, labs, told all ok. Back pain better today. He feels oxycodone helps minimally. Both he and son feel baclofen worked best, not given for home by [facility], tolerated well w/o confusion. No cp, sob, cook, no further falls. Wears brace. Is moving bowels. Has [facility] coming in, and doing pt. Sees ortho next week. Sugars controlled for most part, can be higher with fruit (grapes) Patient Active Problem List Diagnosis Code Allergic [...] with stage 3a chronic kidney disease, with long- term current use of insulin (HCC) E11.22, N18.31, [...] 8 hours as needed for Pain (fever). Allopurinol 100 MG Oral Tablet (Zyloprim) Take 2 Tabs by mouth daily. 180 Tab 2 OneTouch Verio In Vitro Strip (Glucose Blood) Use to test blood sugars 3 times a day 300 Strip 5 BD Pen Needle Elizabeth 2nd Gen 32G X 4 MM USE DIRECTED TO ADMINISTER INSULIN AT DINNER DAILY Triamcinolone Acetonide 0.1 % External Cream (Aristocort) Apply to psoriatic lesions twice a day as needed for 2-3 weeks 453.6 g 0 Pantoprazole [...] 15 mL before bedtime. 2700 mL 6 Lactulose 10 GM Oral Packet (Kristalose) Take [...] mouth in the morning. 90 Tablet 1 FreeStyle Wang 2 Sensor Use as directed. Every 14 days 2 Each 5 Zinc Acetate 50 MG Oral Capsule 50 mg. Multivitamin Adults Oral Tablet 1 Tablet. Probiotic (Lactobacillus) Oral Capsule 1 Capsule. Lantus SoloStar 100 UNIT/ML Subcutaneous Solution Pen-injector Inject 20 Units under the skin daily with dinner. 15 mL 3 Furosemide 20 MG Oral Tablet (Lasix) Take 2 Tablets by mouth in the morning. 60 Tablet 2 Baclofen 5 MG Oral Tablet (Lioresal) Take 1 Tablet by mouth in the morning and 1 Tablet in the evening. 30 Tablet 1 oxyCODONE HCl 5 MG Oral Tablet (Oxy IR) Take 1 Tablet by mouth every 6 hours as needed for Pain, Severe. 28 Tablet 0 Mirtazapine 30 MG Oral Tablet (Remeron) Take 1 Tablet by mouth at bedtime. (Patient not taking:Reported on 07/12/2023) 90 Tablet 1 Repaglinide 1 MG Oral Tablet Take 1 Tablet by mouth in the morning and 1 Tablet at noon and 1 Tablet in the evening. Take with meals. 15 minutes before each meal. (Patient not taking: Reported on07/12/2023) 90 Tablet 5 Ondansetron HCl 4 MG Oral Tablet Take 1 Tablet by mouth every 8 hours as needed for Nausea. (Patient not taking: Reported on 07/12/2023) 30 Tablet 0 Current Facility-Administered Medications Medication Dose Route Frequency Provider Last Rate Last Admin Albuterol Sulfate (Proventil) (2.5 MG/3ML) 0.083% inhalation solution 2.5 mg 2.5 mg Nebulizer PRSary Jennings PA-C Albuterol Sulfate (Proventil) (5 MG/ML) 0.5% *conc* inhalation solution 2.5 mg 2.5 mg NebulizerPRSary Jennings PA-C 2.5 mg at 03/20/23 0913 Review of patient's allergies indicates: No Known Allergies Health Maintenance Due Topic Date Due Zoster Vaccines (1 of 2) Never done COVID-19 Vaccine (3 - Pfizer risk series) 04/05/2021 Depression Screening, Annual for Pts 12 and Over 05/03/2022 Albumin/Creatinine Ratio 10/01/2023 ROS: CONSTITUTIONAL: No fevers, sweats, or chills EYE: No recent significant change in vision EARS: No ear pain, No drainage, No tinnitus or vertigo and No recent change in hearing PULMONARY: No cough, sputum, or hemoptysis, No wheezing, No rales, No shortness of breath and No recent change in breathing CARDIOVASCULAR: No chest pain, No shortness of breath, No dyspnea on exertion, No orthopnea, No paroxysmal nocturnal dyspnea, No edema, No palpitations and No syncope ALL OTHER SYSTEMS NEGATIVE I reviewed social, PMH, PSH, and family history and updated where needed. 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, 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 Social Determinants of Health Financial Resource Strain: Not on file Food Insecurity: Not on file Transportation Needs: Not on file Physical Activity: Not on file Stress: Not on file Social Connections: Not on file Intimate Partner Violence: Not on file Housing Stability: Not on file Past Medical History: Diagnosis Date Acquired thrombocytopenia (HCC) 09/05/2017 Allergic rhinitis Anemia Anxiety and depression Aortic valve sclerosis 02/01/2023 Benign neoplasm of colon 04/16/2013 COLONOSCOPY FLEXIBLE PROXIMAL DIAGNOSTIC performed by Salvador Lopez MD at ENDOSCOPY [facility], adenomatous polyps repeat colonoscopy in 3 year [...] performed by Cody Gonzalez DO at OR [facility] CATARACT SURGERY,COMPLEX Left 04/23/2023 LEFT EXTRACAPSULAR CATARACT REMOVAL COMPLEX WITH IOL performed by Cody Gonzalez DO at OR [facility] COLONOSCOPY 08/27/2005 lock haven/hemorrhoids non internal COLONOSCOPY, DIAGNOSTIC (RECTUM) 04/16/2013 COLONOSCOPY FLEXIBLE PROXIMAL DIAGNOSTIC performed by Salvador Lopez MD at ENDOSCOPY [facility], adenomatous polyps repeat colonoscopy in 3 years COLONOSCOPY, DIAGNOSTIC (RECTUM) 05/03/2016 adenomatous polyps, diverticulosis, repeat 5 yrs/COLONOSCOPY FLEXIBLE PROXIMAL DIAGNOSTIC performedby Salvador Lopez MD at ENDOSCOPY [facility] COLONOSCOPY, DIAGNOSTIC (RECTUM) 07/19/2020 adenomatous & hyperplastic polyps, diverticulosis, repeat 3 yrs / [facility] COLONOSCOPY, DIAGNOSTIC (RECTUM) 11/30/2021 mild XRT proctitis, diverticulosis / COLONOSCOPY FLEXIBLE PROXIMAL DIAGNOSTIC performed by Barbara March DO at ENDOSCOPY [facility] COLONOSCOPY, DIAGNOSTIC (RECTUM) 02/01/2022 Mild XRT proctitis / COLONOSCOPY FLEXIBLE PROXIMAL DIAGNOSTIC performed by Barbara March DO at ENDOSCOPY [facility] COLONOSCOPY, DIAGNOSTIC (RECTUM) N/A 11/07/2022 poor prep/diverticulosis sigmoid colon/rectal angioectasias consistent with radiation proctopathy/Colonoscopy/[place] CT ABDOMEN W IV AND W ORAL CONTRAST 01/10/2010 EGD, FLEXIBLE, DIAGNOSTIC 07/22/2014 GE varices oozing blood, gastric polyp/ESOPHAGOGASTRODUODENOSCOPY (EGD), FLEXIBLE, TRANSORAL, DIAGNOSTIC performed by Juaquin Arrington MD at ENDOSCOPY [facility] EGD, FLEXIBLE, DIAGNOSTIC 07/23/2014 ESOPHAGOGASTRODUODENOSCOPY (EGD), FLEXIBLE, TRANSORAL, DIAGNOSTIC performed by Sophie Merino MD at [facility] EGD, FLEXIBLE, DIAGNOSTIC 06/02/2019 eso & gastric varices, gastric polyps/ESOPHAGOGASTRODUODENOSCOPY (EGD), FLEXIBLE, TRANSORAL, DIAGNOSTIC performed by Salvador Lopez MD at ENDOSCOPY [facility] EGD, FLEXIBLE, DIAGNOSTIC 03/25/2020 portal hypertensive gastropathy, esophageal varices / INPT [facility] EGD, FLEXIBLE, DIAGNOSTIC 07/19/2020 eso varices, portal hypertensive gastropathy, repeat 3 mo / [facility] EGD, FLEXIBLE, DIAGNOSTIC 10/25/2020 Portal hypertensive gastropathy, eso varices / [facility] EGD, FLEXIBLE, DIAGNOSTIC 08/202222 Grade I esophageal varices / [facility] EGD, FLEXIBLE, DIAGNOSTIC N/A 09/11/2022 grade II esophageal varices/gastric antral vascular ectasia, treated with APC/repeat 3 months/EGD/NC EGD, FLEXIBLE, DIAGNOSTIC N/A 11/07/2022 grade III esophageal varices, banded/gastric antral vascular ectasia/repeat 2 months/EGD/NC EGD, FLEXIBLE, DIAGNOSTIC N/A 02/01/2023 [facility]< egd. / single G2 varix, banded and varices eradicated / no specimens collected / egd in 1 to 2 months / IR CANCER THERASPHERE EMBOLIZATION 03/28/2022 IR EMBOLIZATION Left 04/18/2021 IMAGING SUPERVISION & INTERPRETATION TRANSCATHETER THERAPY, EMBOLIZATION performed by Kevin Lim DO at OR [facility] IR EMBOLIZATION ARTERIAL NON HEMMORHAGE Left 02/21/2022 EMBOLIZATION ARTERIAL; SUPERVISION & INTERPRETATION performed by Kevin Lim DO at OR [facility] IR EMBOLIZATION ARTERIAL NON HEMMORHAGE Left 06/05/2022 EMBOLIZATION ARTERIAL; SUPERVISION & INTERPRETATION performed by Kevin Lim DO at OR [facility] IR VENOUS TIPS 10/07/2020 REMOVAL OF TONSILS, UNDER AGE 12 age 6-7 Tonsils Removal,<12 Y/O SIGMOIDOSCOPY, DIAGNOSTIC 04/12/2022 radiation proctitis, diverticulosis / [facility] TIPS, REVISION N/A 01/24/2021 REVISION TRANSVENOUS INTRAHEPATIC PORTOSYSTEMIC SHUNT performed by Kevin Lim DO at OR [facility] TIPS, REVISION Right 10/19/2022 REVISION TRANSVENOUS INTRAHEPATIC PORTOSYSTEMIC SHUNT performed by Howie Valdovinos MD at OR [facility] TIPS, REVISION Right 02/20/2023 REVISION TRANSVENOUS INTRAHEPATIC PORTOSYSTEMIC SHUNT performed by Kevin Lim DO at OR [facility] Family History Problem Relation Age of Onset [...] Heart disease Brother Other (Other) Brother Agent [place] exposure Cancer Grandmother (Paternal) unkown, in 80s Neurological Disorder Daughter epilepsy No Known Problems Daughter Cervical Cancer Daughter Uterine cancer Daughter Thyroid cancer Daughter Diabetes Other Hypertension Other Heart Disorder Other Stroke Other OBJECTIVE: PHYSICAL EXAM: BP 98/46 | Pulse 60 | Temp 36.6 C (97.9 F) | Ht 1.753 m (5' 9") | Wt 77.8 kg (171 lb 8 oz) | SpO2 98% | BMI 25.33 kg/m | BSA 1.95 m General: alert, healthy and no distress Head: Normocephalic, No masses, lesions, or abnormalities Eye Exam: conjunctiva are pink and non-injected, sclera clear Heart: regular rate & rhythm, no murmur, no gallops, PMI non-displaced, S-1 normal and S-2 normal Lungs: normal respiratory rate and rhythm, lungs clear to auscultation Abdomen: abdomen soft and non-tender, wearing brace Extremities: no clubbing, no cyanosis Neuro Exam: alert with fluent speech, sitting in wheelchair, moving all extremities Psych: normal affect, no flight of ideas or tangential thought, good eye contact, no pressured speech 06/21/23 hospital d/c: Patient is 73-year-old male with PMH DM II, CKD III, FOFANA, cirrhosis s/p TIPS, esophageal varices, gastric antral vascular ectasia, portal vein thrombosis, hepatocellular carcinoma, pancytopenia, restrictive lung disease, psoriasis, prostate cancer, left renal mass presented to ER with complaint offall today. Patient states this morning woke up and was feeling well. He states that he was walkingto get a drink to take his morning medications. States the next thing he remembers is being on the floor. Patient's was sleeping in recliner in next room and heard fall and got patient quickly. There was no report patient was unconscious or seizure-like activity. Patient states try to get off floor however was having low back pain. EMS arrived and transported patient to ER. Patient states was not having any chest pain, shortness of breath or dizziness this morning prior to fall. Reports last fall was 6 months ago and that was when he was lifting his leg and lost his balance. He states hesometimes uses walker throughout the house. This morning he was using his walker when he fell. Denies loss control of bowel or bladder. Patient's current complaint is low back pain with movement. Denies any pain at rest. Denies upper extremity or lower extremity pain, denies headache, dizziness, vision changes, neck pain or any other known injury. Patient with history of ascites requiring paracentesis. He reports he has been doing well and last paracentesis approximately 6 to 7 months ago. Denies any recent increased lower extremity or abdominal edema. Denies fever/chills, diaphoresis, N/V/D/C, melena, hematochezia, CP, SOB, orthopnea, palpitations, cough, sore throat, rhinorrhea, abdominalpain, paresthesias, extremity weakness, rashes, urinary symptoms. Patient is 73-year-old male with PMH DM II, CKD III, FOFANA, cirrhosis s/p TIPS, esophageal varices, gastric antral vascular ectasia, portal vein thrombosis, hepatocellular carcinoma, pancytopenia, restrictive lung disease, psoriasis, prostate cancer, left renal mass presented to ER after unwitnessedfall this morning. able to get to patient quickly after fall. No reported seizure like activity, CP, SOB, dizziness Patient underwent following imaging on admission: CT Head: No acute intracranial abnormality CT C-spine: No acute cervical spine fracture or subluxation MRI of the thoracolumbar spine: 1. Multilevel degenerative changes with no significant canal stenosis and [id number] bilateral neuroforaminal stenosis. 2. Please see MRI thoracic spine for findings of potential T12 fracture. CT thoracic spine; acute nondisplaced horizontal 3 column fracture extending along the superior endplate of T12. Extension into the bilateral pedicles better depicted on MRI of June 16, 2023. This fracture is considered unstable. During the hospitalization; orthospine was consulted. Dr. Lockhart recommendedTLSO brace at this point, repeat CAT scan in the next few days, may require surgical intervention, recommend acute rehab. Repeat CT scan of thoracic spine was obtained on June 21 as per recommendation by Dr. Lockhart; Dr. Lockhart reviewed the imaging. He recommended conservative management and discharged to acute rehab. Pain control was done with Tylenol and oxycodone as needed. Pain management consultation was also done. Patient was discharged to [facility]. Patient will need to wear TLSO brace when out of bed. 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 Patient was admitted to our service earlier this month after fall and found to have T12 fracture that has been managed with pain control, T8 LSO brace at all times when out of bed, lidocaine patch and Tylenol as needed. Also prescribed oxycodone and baclofen as needed for severe pain but minimize use. Patient was doing well per report until yesterday, when he seemed to be developing some confusion. Refused evening lactulose dose and another dose today. Patientbecame more confused and then somnolent, directed to [facility] ED for further evaluation and treatment. H istory obtained from chart review and report as patient is altered. Able to participate with some yes/no questions during interview. Endorses back discomfort. Denies any chest pain or shortness of breath. Oriented to person only. Remainder of ROS unobtainable due to cognitive status. 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 Hepatic encephalopathy Liver cirrhosis 2/2 FOFANA Cirrhosis s/p TIPS 2019 and revision 2020 Presenting with increased confusion from [facility] in setting of a few missed lactulose doses He was admitted to 4 days prior to admission for due to his spinal fracture. Discharged on lactulose 30mg BID along with Xifaxan VSS, ammonia level 72, Tbili 3.9, AST 50, INR 1.1 CT head without acute intracranial abnormality, CT abd/pelvis with findings of diverticulosis During the hospitalization, patient was started on lactulose up to every 3 hours as needed. Patient mentation improved throughout the course of the hospitalization. At discharge, patient was AOx3. Baclofen and oxycodone were stopped. Patient was discharged back to acute rehab Hypernatremia Mild hyperNa at 146 Improved. Due to decreased oral intake. Encourage oral hydration. 07/10/[address]: 1. Redemonstration of subacute T12 vertebral body process with extension to the pedicles. Otherwiseno acute abnormality is seen. 2. Cirrhosis, splenomegaly, ascites, and patent TIPS. 3. Interpolar left kidney hypodensity is unchanged. 07/10/23 ct spine: 1. Unchanged alignment of a subacute 3 column T12 vertebral fracture as compared to 06/21/2023. Thisinvolves the bilateral pedicles and is considered unstable. No retropulsed fragments are identified. 2. There is a minimal [id number] inferior endplate compression fracture of T11. This was notclearly seen on the 06/21/2023 examination. 3. No additional fracture is identified involving the thoracic spine. 4. Paravertebral edema is noted at T11-T12. 5. Cirrhotic liver morphology with a TIPS catheter in place and upper abdominal ascites. This patient is a 73-year-old male who presents to the emergency department for evaluation of back/side pain. Patient has a recent history of a T12 fracture and has been wearing a brace for this. He thinks that the brace has been causing him some discomfort and states the pain is now in the his sides radiating into the abdomen. He had some mild abdominal tenderness and therefore the above workup w as performed. CT of the abdomen/pelvis was unremarkable. CT of the thoracic spine shows unchanged alignment of his T12 fracture. There is no additional T11 fracture which was not initially identified. Patient given a dose of morphine here for pain and was given a small prescription for oxycodone. Patient feels that his brace is causing discomfort, but he was advised that he needs to be wearing his brace at all times as instructed by orthopedic spine surgery especially since his fracture is unstable. He was advised to follow-up with orthopedic spine to discuss the issues with his brace. He verbalized understanding of my assessment and treatment plan and was discharged home in good condition ASSESSMENT: Z09 Hospital discharge follow-up (primary encounter diagnosis) S22.088A Other closed fracture of twelfth thoracic vertebra, initial encounter ([facility]) E11.9 Type 2 diabetes mellitus with hemoglobin A1c goal of less than 7.0% ([facility]) E11.22,N18.31,Z79.4 Type 2 diabetes mellitus with stage 3a chronic kidney disease, with long-term current use of insulin ([facility]) N18.31 Chronic kidney disease, stage 3a ([facility]) K76.82 Liver encephalopathy ([facility]) PLAN: Hospital discharge follow-up (Primary) - DISCH MED RECON CUR MED LIS As below Other closed fracture of twelfth thoracic vertebra, initial encounter ([facility]) - Baclofen 5 MG Oral Tablet (Lioresal); Take 1 Tablet by mouth in the morning and 1 Tablet in the evening. - oxyCODONE HCl 5 MG Oral Tablet (Oxy IR); Take 1 Tablet by mouth every 6 hours as needed for Pain,Severe. Continue brace, f/u ortho Question all possible t11 fx when I reviewed CT with them, they were unaware, pain is better controlled today, will await ortho follow up this week Judicious use of oxycodone He notes took baclofen fine, no side effects and helped better, will retry medicine to see if helps Cont ot I have reviewed the patients controlled substance dispensing history in the Prescription Drug Monitoring Program in compliance with the [facility] regulations before prescribing a controlled substance. Type 2 diabetes mellitus with hemoglobin A1c goal of less than 7.0% (HCC) Cont insulin, cgm and repaglinide Type 2 diabetes mellitus with stage 3a chronic kidney disease, with long-term current use of insulin (HCC) - ALBUMIN / CREATININE RATIO, URINE; Future; Expected date: 07/12/2023 As above Chronic kidney disease, stage 3a (HCC) Follow labs Liver encephalopathy (HCC) - COMPREHENSIVE METABOLIC PANEL; Future; Expected date: 07/12/2023 - CBC WITH WBC DIFFERENTIAL; Future; Expected date: 07/12/2023 Better, seems mentation is good today Cont rifaxamin, lactulose is moving bowels ok Cont lasix, following labs Cont f/u gi Follow Up: Return in about 3 months (around 10/12/2023), or if symptoms worsen or fail to improve, for Labs Today. | For: Labs Today Francisco Cisse MD documented in this encounter Nursing Notes * Lorri Swain CMA - 07/12/2023 12:06 PM EDT Chief Complaint Patient presents with Hospital Follow-Up ER follow up from [facility] d/c on 07/03/23. Was seen for back pain due to a fall 1 month prior that results in fx of his T12 spine. Pain level is 3 out of 10 today, has been taking oxycodone for relief. documented in this encounter Plan of Treatment Upcoming Encounters Date Type Specialty Care Team Description 08/08/2023 Imaging Radiology 08/30/2023 Office Visit Gastroenterology Lamar Tatum CRNP [address] [place] [address] 09/30/2023 Office Visit Hematology Oncology Jennifer Ramires MD [address] [place] [address] 10/08/2023 Procedure Only Urology Frank Peraza MD [address] [place], [place] [id number] 10/11/2023 Office Visit Internal Medicine Joaquin Snider PA-C 200 [place] [address] 06/11/2024 Office Visit Ophthalmology Cody Gonzalez DO [address] [place] [address] Pending Results Name Type Priority Associated Diagnoses Date /Time CBC WITH WBC DIFFERENTIAL Lab Routine Liver encephalopathy (HCC) 07/12/2023 12:36 PM EDT ALBUMIN / CREATININE RATIO, URINE Lab Routine Type 2 diabetes mellitus with stage 3a chronic kidney disease, with long-term current use of insulin (HCC) 07/12/2023 12:37 PM EDT Scheduled Orders Name Type Priority Associated Diagnoses Orde r Schedule CBC WITH WBC DIFFERENTIAL Lab Routine Liver encephalopathy (HCC) Expected: 07/12/2023 (Approximate), Expires: 07/12/2024 ALBUMIN / CREATININE RATIO, URINE Lab Routine Type 2 diabetes mellitus with stage 3a chronic kidney disease, with long-term current use of insulin (HCC) Expected: 07/12/2023 (Approximate), Expires: 07/12/2024 Health Maintenance Due Date Last Done Comments Zoster Vaccines (1 of 2) 2000 COVID-19 Vaccine (3 - Pfizer risk series) 04/05/2021 03/08/2021, 02/15/2021 Depression Screening, Annual for Pts 12 and Over 05/03/2022 05/03/2021 Influenza Vaccine (FLU shot) (#1) 2023 09/15/2021, 09/15/2021, 09/30/2020, Additional history exists Albumin/Creatinine Ratio 10/01/2023 022, 09/11/2021, 11/30/2020, Additional history exists HbA1c 11/27/2023 05/28/2023, 01/03, 10/10/2022, Additional history exists GFR 12/30/2023 06/29/2023, 06/02, 06/22/2023, Additional history exists DIABETES-EYE EXAM 01/17/2024 01/17/2023, , 01/17/2023, Additional history exists CKD PHOS USE SMARTSET 40119 01/28/202401/03, 07/26/2022, 12/05/2021, Additional history exists DIABETES-FOOT EXAM 03/06/2024 03/06/2023, 0 01/03/2022, 03/02/2021, Additional history exists CKD HGB USE SMARTSET 77736 07/03/202407/03, 06/29/2023, 06/24/2023, Additional history exists COLONOSCOPY-EVERY 3 YRS AGES [...] this encounter Medical Devices Implanted Type Area Teletype Clerk Device Identifier Shelf Expiration Date Model / Serial / Lot Clareon Iol Aspheric Hydrophobic Acrylic Iol Implanted:Qty: 1 on 04/23/2023 by Cody Gonzalez DO at OR [facility] Lens Left: Eye 11/12/2025 CNA0T0 / [id number] / Viatorr Tips Endoprosthesis 8-10 Mm X 8cm / 2cm Implanted:Qty: 1 on 10/07/2020 by Go Alvarado MD at [facility] Right: Abdomen 03/03/2023 [id number] / / [id number] Description:Viatorr TIPS End oprosthesis 8-10 mm x 8cm / 2cm, Manufactored by [employer] Syr Pf 2ml Embospheres 100-300 - [id number] Implanted:Qty: 1 on 04/18/2021 by Kevin Lim DO at OR [facility] Left: Abdomen [employer] [id number] 11/25/2023 S220GH / / [id number] Syr Pf 2ml Embospheres 100-300 - [id number] Implanted:Qty: 1 on 03/28/2022 at [facility] [employer] [id number] 08/31/2024 S220GH / / [id number] -[id number] Clareon Iol Aspheric Hydrophobic Acrylic Iol Implanted:Qty: 1 on 04/02/2023 by Cody Gonzalez DO at OR [facility] Right: Eye JAZMIN 11/12/2025 CNA0T0 / [id number] / documented as of this encounter Visit Diagnoses Diagnosis Hospital discharge follow-up- Primary Other follow-up examination Other closed fracture of twelfth thoracic vertebra, initial encounter (HCC) Type 2 diabetes mellitus with hemoglobin A1c goal of less than 7.0% (HCC) Type 2 diabetes mellitus with stage 3a chronic kidney disease, with long-term current use of insulin (HCC) Chronic kidney disease, stage 3a (HCC) Liver encephalopathy (HCC) Hepatic encephalopathy documented in this encounter Advance Directives Documents on File Type Date Recorded Patient Stock Or Delivery Clerk Expl anation Advance Directives and Living Will 12/11/2022 ADVANCE DIRECTIVE / LIVING WILL LIVING WILL Power of Bmw Service Technician 12/11/2022 POWER OF A TTORNEY [...] the patient have Health Care Power of Bmw Service Technician? No Full Code 07/22/2014 9:56 PM 07/24/2014 8:18 PM This order reflects the patients wishes and were consensually agreed upon. Question Answer Comments Discussion of Advance Directives occurred with: Patient Does the patient have a Living Will? No Does the patient have Health Care Power of Bmw Service Technician? No Care Teams Meal Packer Relationship Specialty Start Date End Date Francisco Cisse MD [address] [place] [address], [place] [address] PCP - General Internal Medicine 09/04/21 documented as of this encounter
--- OUTSIDE RECORDS SUMMARY | 2023-11-26 12:45 | External Medical Summary | Summary of Care ---
Author Name Unknown Organization [facility] Address [address] [facility] [place] [address] Phone [phone] Care Team Providers Care Antique Furniture Restorer Name Role Phone Francisco Cisse MD Primary Care Provider + Reason for Visit * Reason Comments Outpatient Testing Encounter Details Date Type Department Care Team Description 07/12/2023 Laboratory Laboratory [facility] [place] [address] [place] [phone] [place], Lab Scenery [address] [place] [phone] Other cirrhosis of liver (HCC); Liver encephalopathy (HCC); Type 2 diabetes mellitus with stage 3a chronic kidney disease, with long-term current use of insulin (HCC) Allergies No known active allergiesdocumented as [...] already had his shot last month at [facility] [employer] Lyons and Mckinley Cobian made [...] Tatum CRNP [address] [place] [address] 09/30/2023 Office Visit Hematology Oncology Jennifer Ramires MD [address] [place] [address] 10/08/2023 Procedure Only Urology Frank Peraza MD [address] [facility] [address] [place] [address] 10/11/2023 Office Visit Internal Medicine Joaquin Snider PA-C [address] [place] [address] 06/11/2024 Office Visit [facility]hthalmology Cody Gonzalez, [facility] [address] [facility] [place] [address] Pending Results Name Type Priority Associated Diagnoses Date /Time COMPREHENSIVE METABOLIC PANEL Lab Routine Other cirrhosis of liver (HCC) 07/12/2023 12:36 PM EDT CBC WITH WBC DIFFERENTIAL Lab Routine Liver encephalopathy (HCC) 07/12/2023 12:36 PM EDT CBC Lab Routine Liver encephalopathy (HCC) 07/12/2023 12:36 PM EDT DIFFERENTIAL, AUTOMATED Lab Routine Liver encephalopathy (HCC) 07/12/2023 12:36 PM EDT ALBUMIN / CREATININE RATIO, URINE Lab Routine Type 2 diabetes mellitus with stage 3a chronic kidney disease, with long-term current use of insulin (HCC) 07/12/2023 12:37 PM EDT Health Maintenance Due Date Last Done [...] Additional history exists CKD PHOS USE SMARTSET 31877 01/28/202401/03, 07/26/2022, 12/05/2021, Additional history exists DIABETES-FOOT EXAM 03/06/2024 03/06/2023, 0 01/03/2022, 03/02/2021, Additional history exists CKD HGB USE SMARTSET 35752 07/03/202407/03, 06/29/2023, 06/24/2023, Additional history exists COLONOSCOPY-EVERY [...] this encounter Medical Devices Implanted Type Area Junior Analyst Device Identifier Shelf Expiration Date Model / Serial / Lot Clareon Iol Aspheric Hydrophobic Acrylic Iol Implanted:Qty: 1 on 04/23/2023 by Cody Gonzalez DO at OR [facility] Lens Left: Eye 11/12/2025 CNA0T0 / [id number] / Viatorr Tips Endoprosthesis 8-10 Mm X 8cm / 2cm Implanted:Qty: 1 on 10/07/2020 by Go Avlarado MD at [facility] Right: Abdomen 03/03/2023 [id number] / / [id number] Description:Viatorr TIPS End oprosthesis 8-10 mm x 8cm / 2cm, Manufactored by [employer] Syr Pf 2ml Embospheres 100-300 - [id number] Implanted:Qty: 1 on 04/18/2021 by Kevin Lim DO at OR [facility] Left: Abdomen [employer] [id number] 11/25/2023 S220GH / / [id number] -[id number] Syr Pf 2ml [facility] 100-300 - [id number] Implanted:Qty: 1 on 03/28/2022 at [facility] [employer] [id number] 08/31/2024 S220GH / / [id number] -[id number] Clareon Iol Aspheric Hydrophobic Acrylic Iol Implanted:Qty: 1 on 04/02/2023 by Cody Gonzalez DO at OR [facility] Right: Eye JAZMIN 11/12/2025 CNA0T0 / [id number] / documented as of this encounter Visit Diagnoses Diagnosis Other cirrhosis of liver (HCC) Liver encephalopathy (HCC) Hepatic encephalopathy Type 2 diabetes mellitus with stage 3a chronic kidney disease, with long-term current use of insulin (HCC) documented in this encounter Advance Directives Documents on File Type Date Recorded Patient Pediatric Lpn Expl anation Advance Directives and Living Will 12/11/2022 ADVANCE DIRECTIVE / LIVING WILL LIVING WILL Power of Box Spinner 12/11/2022 POWER OF A TTORNEY Latest Code [...] the patient have Health Care Power of Box Spinner? No Full Code 07/22/2014 9:56 PM 07/24/2014 8:18 PM This order reflects the patients wishes and were consensually agreed upon. Question Answer Comments Discussion of Advance Directives occurred with: Patient Does the patient have a Living Will? No Does the patient have Health Care Power of Box Spinner? No Care Teams Antique Furniture Restorer Relationship Specialty Start Date End Date Francisco Cisse MD [address] [place] [address] PCP - General Internal Medicine 09/04/21 documented as of this encounter
--- OUTSIDE RECORDS SUMMARY | 2023-11-26 12:45 | External Medical Summary | Summary of Care ---
Author Name Unknown Organization [facility] Address [address] [facility] [place] [address] Phone [phone] Care Team Providers Care Real Estate Job Titles Name Role Phone Francisco Cisse MD Primary Care Provider + Reason for Visit * Reason Onset Date Comments Med Request 07/09/2023 Encounter Details Date Type Department Care Team Description 07/09/2023 Telephone General Internal Medicine [facility] [place] [address] [facility] [place] [address] Francisco Cisse MD 200 [place] [address] Med Request Allergies No known active allergiesdocumented as of this encounter (statuses as of 07/11/2023) Medications Medication Sig Dispensed Refills Start Date End Date Status Tylenol 325 MG Oral Capsule (Acetaminophen) Take 650 mg by mouth every 8 hours as needed for Pain (fever). 0 Active Allopurinol 100 MG Oral Tablet (Zyloprim)Indication s:Gout of big toe Take 2 Tabs by [...] 01/29/2023 Active Lactulose 10 GM/15ML Oral Solution (Constulose)Indicati ons:Other cirrhosis of liver (HCC) Take 15 mL by mouth in the morning and 15 mL before bedtime. 2700 mL 6 01/29/2023 Active Mirtazapine 30 MG Oral Tablet (Remeron)Indications :Neoplastic (malignant) related fatigue,Depression due to physical illness Take 1 Tablet by mouth at bedtime. 90 Tablet 1 02/15/2023 Active Repaglinide 1 MG Oral TabletIndications:Ty pe 2 diabetes mellitus with stage 3a chronic kidney disease, without long-term current use of insulin (HCC) Take 1 Tablet by mouth in the morning and 1 Tablet at noon and 1 Tablet in the evening. Take with meals. 15 minutes before each meal. 90 Tablet 5 03/06/2023 Active Lactulose 10 GM Oral Packet (Kristalose)Indicati [...] Active Lantus SoloStar 100 UNIT/ML Subcutaneous Solution Pen-injectorIndicati ons:Type 2 diabetes mellitus with hemoglobin A1c goal of less than 7.0% (HCC) Inject 20 Units under the skin daily with dinner. 15 mL 3 06/05/2023 Active Furosemide 20 MG Oral Tablet (Lasix)Indications:C irrhosis of liver with ascites, unspecified hepatic cirrhosis type (HCC) Take 2 Tablets by mouth in the morning. 60 Tablet 2 06/11/2023 Active Ondansetron HCl 4 MG Oral TabletIndications:Na usea without vomiting,Liver cell carcinoma (HCC),GAVE (gastric antral vascular ectasia) Take 1 Tablet by mouth every 8 hours as needed for Nausea. 30 Tablet 0 06/12/2023 Active Hospital, Clinic, or Other Facility Administered [...] as of this encounter (statuses as of 07/11/2023) Active Problems Problem Noted Date Restrictive ventilatory defect 3 Lung disease, restrictive [...] as of this encounter (statuses as of 07/11/2023) Resolved Problems Problem Noted Date Resolved Date [...] as of this encounter (statuses as of 07/11/2023) Immunizations Name Administration Dates Next Due COVID-19 mRNA, LNP-s, No Pre serve, 2-Dose Series ([employer]) 03/08/2021,02/15/2021 HepA Inact/HepB Recomb>=18yrs old 12/04/2019,04/2019,05/20/2019 11/19/2019 [...] already had his shot last month at [facility] [employer] M[employer]inley Cobian made [...] encounter Miscellaneous Notes * Telephone Encounter - Velasquez Thomson LPN - 07/11/2023 3:38 PM EDT Provider to address: Francisco Cisse MD Reason for Call: Med Request Contact: Telephone Call Contact Type: Test Results Outcome: patient informed and voiced understanding. Pt stated he will come to his appointment tomorrow to discuss further. Total Time including non face to face (minutes): 5 * Telephone Encounter - Francisco Cisse MD - 07/11/2023 11:09 AM EDT Yes, keep visit * Telephone Encounter - ESTELLE Cochran - 07/11/2023 9:22 AM EDT Patient stated he went to ER last night for back pain, he stated that he has appt with Dr. Cisse in regards to this injury on 07.12.23. Patient wanted to let Dr. Cisse know that he was prescribed Oxycodine at the ER last night. Please advise if needed. Call back at [phone] * Telephone Encounter - Michelle Nash RN - 07/10/2023 1:41 PM EDT Spoke with patient's son, Alex. Reporting that patient is currently at [facility] ER for back pain. Son will notify PCP of result of visit today. Dr. Cisse - [facility]. Thank you. * Telephone Encounter - Francisco Cisse MD - 07/10/2023 11:34 AM EDT I don;t feel comfortable ordering pain w/o exam, visit. Would try to find more info about pain, injury * Telephone Encounter - Michelle Nash RN - 07/10/2023 10:58 AM EDT Patient left voicemail again regarding below message. Dr. Cisse - Please advise if you recommend rx pain medication at this time. Patient is scheduled to see you on Saturday. Thank you. Michelle Nash metropolitan editor Care Coordination and Integration [address] [facility] [place] [address] * Telephone Encounter - ESTELLE Farris - 07/09/2023 12:15 PM EDT Lots of pain in back and side after injury. Patient scheduled to see Dr Cisse 07/12/23 for HospDisch. Requesting pain med stronger than Tylenol, but prefers not to use Oxy which interacts with Lactulose. documented in this encounter Plan of Treatment Upcoming Encounters Date Type Specialty Care Team Description 07/12/2023 Office Visit Internal Medicine Francisco Cisse MD [address] [place] [address] 08/08/2023 Imaging Radiology 08/30/2023 Office Visit Gastroenterology Lamar Tatum CRNP [address] [place] [address] 09/30/2023 Office Visit Hematology Oncology Jennifer Ramires MD [address] [place] [address] 10/08/2023 Procedure Only Urology Frank Peraza MD [address] [place] [address] 06/11/2024 Office Visit Ophthalmology Cody Gonzalez DO [address] [place] [phone] Health Maintenance Due Date Last Done Comments [...] Additional history exists CKD PHOS USE SMARTSET 96486 01/28/202401/03, 07/26/2022, 12/05/2021, Additional history exists DIABETES-FOOT EXAM 03/06/2024 03/06/2023, 0 01/03/2022, 03/02/2021, Additional history exists CKD HGB USE SMARTSET 50091 07/03/202407/03, 06/29/2023, 06/24/2023, Additional history exists COLONOSCOPY-EVERY [...] this encounter Medical Devices Implanted Type Area Assistance Specialist Device Identifier Shelf Expiration Date Model / Serial / Lot Clareon Iol Aspheric Hydrophobic Acrylic Iol Implanted:Qty: 1 on 04/23/2023 by Cody Gonzalez DO at OR [facility] Lens Left: Eye 11/12/2025 CNA0T0 / [id number] / Viatorr Tips Endoprosthesis 8-10 Mm X 8cm / 2cm Implanted:Qty: 1 on 10/07/2020 by Go Alvarado MD at [facility] Right: Abdomen 03/03/2023 [id number] / / [id number] Description:Viatorr TIPS End oprosthesis 8-10 mm x 8cm / 2cm, Manufactored by [employer] Syr Pf 2ml Embospheres 100-300 - [id number] Implanted:Qty: 1 on 04/18/2021 by Kevin Lim DO at OR [facility] Left: Abdomen [employer] [id number] 11/25/2023 S220GH / / [id number] -5 Syr Pf 2ml Embospheres 100-300 - [id number] Implanted:Qty: 1 on 03/28/2022 at [facility] [employer] [id number] 08/31/2024 S220GH / / [id number] -5 Clareon Iol Aspheric Hydrophobic Acrylic Iol Implanted:Qty: 1 on 04/02/2023 by Cody Gonzalez DO at OR 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 No Full Code 07/22/2014 9:56 PM 07/24/2014 8:18 PM This order reflects the patients wishes and were consensually agreed upon. Question Answer Comments Discussion of Advance Directives occurred with: Patient Does the patient have a Living Will? No Does the patient have Health Care Power of Licensing Analyst? No Care Teams Real Estate Job Titles Relationship Specialty Start Date End Date Francisco Cisse MD 200 [place] [address] PCP - General Internal Medicine 09/04/21 documented as of this encounter
--- OUTSIDE RECORDS SUMMARY | 2023-11-26 12:45 | External Medical Summary | Summary of Care ---
Author Name Unknown Organization [facility] Address [address] [facility] [place] [address] Phone [phone] Care Team Providers Care Railroad Inspector Name Role Phone Francisco Cisse MD Primary Care Provider + Encounter Details Date Type Department Care Team Description 07/10/2023 Orders Only Pulmonary Medicine, [facility] [address] [place] [address] Jordan Stanley MD [address] [facility] [place] [address] Chronic respiratory failure with hypoxia (HCC)* Allergies No known active allergiesdocumented as of this encounter (statuses as of 07/10/2023) Medications Medication Sig Dispensed Refills Start Date [...] as of this encounter (statuses as of 07/10/2023) Active Problems Problem Noted Date Restrictive ventilatory [...] as of this encounter (statuses as of 07/10/2023) Resolved Problems Problem Noted Date Resolved Date [...] as of this encounter (statuses as of 07/10/2023) Immunizations Name Administration Dates Next Due COVID-19 mRNA, LNP-s, No Pre serve, 2-Dose Series ([employer] system) 03/08/2021,02/15/2021 HepA Inact/HepB Recomb>=18yrs old 12/04/2019,04/2019,05/20/2019 11/19/2019 [...] Visit Internal Medicine Francisco Cisse MD 200 [facility] [place] [address] 08/08/2023 Imaging Radiology 08/30/2023 Office Visit Gastroenterology Lamar Tatum CRNP [address] [place] [address] 09/30/2023 Office Visit Hematology Oncology Jennifer Ramires MD 200 [facility] [place] [address] 10/08/2023 Procedure Only Urology Frank Peraza MD [address] [place] [address] 06/11/2024 Office Visit Ophthalmology Cody Gonzalez DO [address] [place] [address] Health Maintenance Due Date Last Done Comments Zoster Vaccines (1 of 2) 2000 COVID-19 Vaccine (3 - Pfizer risk series) 04/05/2021 03/08/2021, 02/15/2021 Depression Screening, Annual for Pts 12 and Over 05/03/2022 05/03/2021 Influenza Vaccine (FLU shot) (#1) 2023 09/15/2021, 09/15/2021, 09/30/2020, Additional history exists Albumin/Creatinine Ratio 10/01/202310/01/2 022, 09/11/2021, 11/30/2020, Additional history exists HbA1c 11/27/2023 05/28/2023, 01/03, 10/10/2022, Additional history exists GFR 12/30/2023 06/29/2023, 06/02, 06/22/2023, Additional history exists DIABETES-EYE EXAM 01/17/2024 01/17/2023, , 01/17/2023, Additional history exists CKD PHOS USE SMARTSET 71658 01/28/202401/03, 07/26/2022, 12/05/2021, Additional history exists DIABETES-FOOT EXAM 03/06/2024 03/06/2023, 0 01/03/2022, 03/02/2021, Additional history exists CKD HGB USE SMARTSET 51992 07/03/202407/03, 06/29/2023, 06/24/2023, Additional history exists COLONOSCOPY-EVERY [...] this encounter Medical Devices Implanted Type Area Mobile Application Developer Device Identifier Shelf Expiration Date Model / Serial / Lot Clareon Iol Aspheric Hydrophobic Acrylic Iol Implanted:Qty: 1 on 04/23/2023 by Cody Gonzalez DO at OR [facility] Lens Left: Eye 11/12/2025 CNA0T0 / [id number] / Viatorr Tips Endoprosthesis 8-10 Mm X 8cm / 2cm Implanted:Qty: 1 on 10/07/2020 by Go Alvarado MD at [facility] Right: Abdomen 03/03/2023 [id number] / / [id number] Description:Viatorr TIPS End oprosthesis 8-10 mm x 8cm / 2cm, Manufactored by [employer] Syr Pf 2ml Embospheres 100-300 - [id number] Implanted:Qty: 1 on 04/18/2021 by Kevin Lim DO at OR [facility] Left: Abdomen [employer] [id number] 11/25/2023 S220GH / / [id number] -[id number] Syr Pf 2ml Embospheres 100-300 - [id number] Implanted:Qty: 1 on 03/28/2022 at 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 No Full Code 07/22/2014 9:56 PM 07/24/2014 8:18 PM This order reflects the patients wishes and were consensually agreed upon. Question Answer Comments Discussion of Advance Directives occurred with: Patient Does the patient have a Living Will? No Does the patient have Health Care Power of Tearoom Host/Hostess? No Care Teams Railroad Inspector Relationship Specialty Start Date End Date Francisco Cisse MD [address] [place] [address] PCP - General Internal Medicine 09/04/21 documented as of this encounter
--- OUTSIDE RECORDS SUMMARY | 2023-11-26 12:45 | External Medical Summary | Summary of Care ---
Author Name Unknown Organization [facility] Address [address] [place] [address] Phone [phone] Care Team Providers Care Line Decorator Name Role Phone Francisco Cisse MD Primary Care Provider + Reason for Visit * Reason Onset Date Comments Other 07/17/2023 Oxygen Encounter Details Date Type Department Care Team Description 07/17/2023 Telephone Access Center, Central Region [address] [facility] *DO NOT REMOVE THIS DEPARTMENT* [place] [address] Services, Scheduling [address] [place] [address] Other (Oxygen) Allergies No known active allergiesdocumented [...] goal of less than 7.0% ([facility]) Use to test blood sugars 3 times [...] mRNA, LNP-s, No Pre serve, 2-Dose Series (Allani) 03/08/2021,02/15/2021 HepA Inact/HepB Recomb>=18yrs old 12/04/2019,04/2019,05/20/2019 11/19/2019 [...] had his shot last month at [place] [facility] Handy Lyons and Mckinley Cobian made [...] Miscellaneous Notes * Telephone Encounter - ESTELLE Sandhu - 07/17/2023 12:31 PM EDT Patient called in and has questions about the oxygen that was order. Would like to speak with a nurse. Thank you. documented in this encounter Plan of Treatment Upcoming Encounters Date Type Specialty Care Team Description 08/08/2023 Imaging Radiology 08/30/2023 Office Visit Gastroenterology Lamar Tatum CRNP [address] [place] [address] 09/30/2023 Office [facility] [address] 10/08[facility]2023 Procedure Only Urology Frank Peraza MD [address] [place] [address] [place] [id number] 10/11/2023 Office Visit Internal Medicine Joaquin Snider PA-C 200 [facility] [place], [place] [address] 06/11/2024 Office Visit Ophthalmology Cody Gonzalez, DO [address] [place] [address] Health Maintenance Due Date Last Done Comments [...] Additional history exists CKD PHOS USE SMARTSET 11174 01/28/202401/03, 07/26/2022, 12/05/2021, Additional history exists DIABETES-FOOT EXAM 03/06/2024 03/06/2023, 0 01/03/2022, 03/02/2021, Additional history exists Albumin/Creatinine Ratio 07/12/2024 023, 10/01/2022, 09/11/2021, Additional history exists CKD HGB USE SMARTSET 28235 07/12/202407/12, 07/12/2023, 07/03/2023, Additional history exists COLONOSCOPY-EVERY [...] this encounter Medical Devices Implanted Type Area Software Applications Designer Device Identifier Shelf Expiration Date Model / Serial / Lot Clareon Iol Aspheric Hydrophobic Acrylic Iol Implanted:Qty: 1 on 04/23/2023 by Cody Gonzalez DO at OR [facility] Lens Left: Eye 11/12/2025 CNA0T0 / [id number] / Viatorr Tips Endoprosthesis 8-10 Mm X 8cm / 2cm Implanted:Qty: 1 on 10/07/2020 by Go Alvarado MD at [facility] Right: Abdomen 03/03/2023 [id number] / / [id number] Description:Viatorr TIPS End oprosthesis 8-10 mm x 8cm / 2cm, Manufactored by [employer] Syr Pf 2ml Embospheres 100-300 - [id number] Implanted:Qty: 1 on 04/18/2021 by Kevin Lim DO at OR [facility] Left: Abdomen [employer] [id number] 11/25/2023 S220GH / / [id number] -[id number] Syr Pf 2ml Embospheres 100-300 - [id number] Implanted:Qty: 1 on 03/28/2022 at [facility] [employer] [id number] 08/31/2024 S220GH / / [id number] -5 Clareon Iol Aspheric Hydrophobic Acrylic Iol Implanted:Qty: 1 on 04/02/2023 by Cody Gonzalez DO at OR [facility] Right: Eye JAZMIN 11/12/2025 CNA0T0 / [id number] / documented as of this encounter Advance Directives Documents on File Type Date Recorded Patient Tire Duster Expl anation Advance Directives and Living Will 12/11/2022 ADVANCE DIRECTIVE / LIVING WILL LIVING WILL Power of Production Machine Operator 12/11/2022 POWER OF A TTORNEY [...] the patient have Health Care Power of Production Machine Operator? No Full Code 07/22/2014 9:56 PM 07/24/2014 8:18 PM This order reflects the patients wishes and were consensually agreed upon. Question Answer Comments Discussion of Advance Directives occurred with: Patient Does the patient have a Living Will? No Does the patient have Health Care Power of Production Machine Operator? No Care Teams Line Decorator Relationship Specialty Start Date End Date Francisco Cisse MD [address] [place] [address], [place] [address] PCP - General Internal Medicine 09/04/21 documented as of this encounter
--- OUTSIDE RECORDS SUMMARY | 2023-11-26 12:45 | External Medical Summary ---
Author Name Unknown Address Unknown Organization K09:[facility] [place] [address] Laboratory Report Ordering Provider Test Date Status SHREYA SEGUNDO 07/12/2023 12:36:38 Final Observation Date Value Abnormality Reference (Units ) Status Nucleated erythrocytes/100 leukocytes [Ratio] in Blood by Automated count 07/12/2023 12:36:38 Final Performing Location [facility] [place] [address]
--- OUTSIDE RECORDS SUMMARY | 2023-11-26 12:45 | External Medical Summary | Summary of Care ---
Author Name Unknown Organization [facility] Address [address] [place] [address] Phone [phone] Care Team Providers Care Oil Burner Repairer Name Role Phone Francisco Cisse MD Primary Care Provider + Reason for Visit * Reason Comments case management Encounter Details Date Type Department Care Team Description 07/15/2023 Harvest Worker FruitHospitality Ambassador Internal Medicine [facility] [place] [address] [place] [address] Michelle Nash RN [address] [place] [address] Medical home patient encounter* Allergies No known active allergiesdocumented as of this encounter (statuses as of 07/15/2023) Medications Medication Sig Dispensed Refills Start Date [...] fracture of twelfth thoracic vertebra, initial encounter ([facility]) Take 1 Tablet by mouth in the morning and 1 Tablet in the evening. 30 Tablet 1 07/12/2023 Active oxyCODONE HCl 5 MG Oral Tablet (Oxy IR)Indications:Othe r closed fracture of twelfth thoracic vertebra, initial encounter ([facility]) Take 1 Tablet by mouth every 6 [...] as of this encounter (statuses as of 07/15/2023) Active Problems Problem Noted Date Closed T12 [...] as of this encounter (statuses as of 07/15/2023) Resolved Problems Problem Noted Date Resolved Date [...] as of this encounter (statuses as of 07/15/2023) Immunizations Name Administration Dates Next Due COVID-19 mRNA, LNP-s, No Pre serve, 2-Dose Series (Quick2LAUNCH) 03/08/2021,02/15/2021 HepA Inact/HepB Recomb>=18yrs old 12/04/2019,04/2019,05/20/2019 11/19/2019 [...] already had his shot last month at [facility] Handy Lyons and Mckinley Cobian [...] as of this encounter Progress Notes * Michelle Nash RN - 07/15/2023 1:03 PM EDT SITUATION: [facility] Tier 2 follow up ANDREW BACKGROUND: [facility] 06/25-06/27 and [facility] 06/27-07/03 s/p fall w/ injury [facility] ED 07/10 for back pain ASSESSMENT: Reports he is using Baclofen as prescribed-no longer using oxycodone due to causing constipation. Feeling "pretty sore" today. Scheduled to see Dr. Lockhart at Orthopedics tomorrow. Wearing back brace daily as recommended. Ambulating with walker-denies recent falls/injuries. Taking lactulose as prescribed-denies any increased confusion/AMS today. Had mild nausea this am but has resolved. [facility]OT seeing him weekly. Had hospital follow up with PCP on 07/12. FBS today was 115. RECOMMENDATION: Will plan to follow up within one week. Michelle Nash RN General Internal Medicine [facility] [place] [address] [place] [address] documented in this encounter Plan of Treatment Upcoming Encounters Date Type Specialty Care Team Description 08/08/2023 Imaging Radiology 08/30/2023 Office Visit Gastroenterology Lamar Tatum CRNP [address] [place] [address] 09/30/2023 Office Visit Hematology Oncology Jennifer Ramires MD 200 [place] [address] 10/08/2023 Procedure Only Urology Frank Peraza MD [address] [place] [address] [place] [address] 10/11/2023 Office Visit Internal Medicine Joaquin Snider PA-C 200 [facility] [place] [address] 06/11/2024 Office Visit Ophthalmology Cody Gonzalez DO [address] [place] [address] Health Maintenance Due Date Last [...] Additional history exists CKD PHOS USE SMARTSET 51122 01/28/202401/03, 07/26/2022, 12/05/2021, Additional history exists DIABETES-FOOT EXAM 03/06/2024 03/06/2023, 0 01/03/2022, 03/02/2021, Additional history exists Albumin/Creatinine Ratio 07/12/2024 023, 10/01/2022, 09/11/2021, Additional history exists CKD HGB USE SMARTSET 72145 07/12/202407/12, 07/12/2023, 07/03/2023, Additional history exists COLONOSCOPY-EVERY [...] this encounter Medical Devices Implanted Type Area Resource Agent Device Identifier Shelf Expiration Date Model / Serial / Lot Clareon Iol Aspheric Hydrophobic Acrylic Iol Implanted:Qty: 1 on 04/23/2023 by Cody Gonzalez DO at [facility] Lens Left: Eye 11/12/2025 CNA0T0 / [id number] / Viatorr Tips Endoprosthesis 8-10 Mm X 8cm / 2cm Implanted:Qty: 1 on 10/07/2020 by Go Alvarado MD at [facility] Right: Abdomen 03/03/2023 [id number] / / [id number] Description:Viatorr TIPS End oprosthesis 8-10 mm x 8cm / 2cm, Manufactored by [employer] [place] [employer] Syr Pf 2ml Embospheres 100-300 - [id number] Implanted:Qty: 1 on 04/18/2021 by Kevin Lim DO at OR [facility] Left: Abdomen [employer] [id number] 11/25/2023 S220GH / / [id number] -[id number] Syr Pf 2ml Embospheres 100-300 - [id number] Implanted:Qty: 1 on 03/28/2022 at [facility] [employer] [id number] 08/31/2024 S220GH / / [id number] -5 Clareon Iol Aspheric Hydrophobic Acrylic Iol Implanted:Qty: 1 on 04/02/2023 by Cody Gonzalez DO at OR [facility] Right: Eye JAZMIN 11/12/2025 CNA0T0 / [id number] / documented as of this encounter Visit Diagnoses Diagnosis Medical home patient encounter- Primary Other specified examination documented in this encounter Advance Directives Documents on File Type Date Recorded Patient Plant Engineering Supervisor Expl anation Advance Directives and Living Will 12/11/2022 ADVANCE DIRECTIVE / LIVING WILL LIVING WILL Power of Sow Manager 12/11/2022 POWER OF A TTORNEY Latest [...] the patient have Health Care Power of Sow Manager? No Full Code 07/22/2014 9:56 PM 07/24/2014 8:18 PM This order reflects the patients wishes and were consensually agreed upon. Question Answer Comments Discussion of Advance Directives occurred with: Patient Does the patient have a Living Will? No Does the patient have Health Care Power of Sow Manager? No Care Teams Oil Burner Repairer Relationship Specialty Start Date End Date Francisco Cisse MD [address] [place] [id number] PCP - General Internal Medicine 09/04/21 documented as of this encounter
--- OUTSIDE RECORDS SUMMARY | 2023-11-26 12:45 | External Medical Summary ---
Author Name Unknown Address Unknown Organization K09:[facility] [address] [place] [address] Laboratory Report Ordering Provider Test Date Status SHREYA SEGUNDO 07/12/2023 12:36:38 Final Observation Date Value Abnormality Reference (Units ) Status BUN 07/12/2023 12:36:38 22 Above high normal 6-20 (mg/dL) Final Creatinine 07/12/2023 12:36:38 1.3 Above high normal 0.6-1.2 (mg/dL) Final Glomerular filtration rate/1.73 sq M.predicted [Volume Rate/Area] in Serum, Plasma or Blood by Creatinine-based formula (CKD-EPI) 07/12/2023 12:36:38 58 Below low normal >=60 (mL/min) Final eGFR is calculated based on the CKD-EPI 2020 equation SODIUM 07/12/2023 12:36:38 141 135-146 (m mol/L) Final Potassium 07/12/2023 12:36:38 4.7 3.5-5.1 (m mol/L) Final Cl 07/12/2023 12:36:38 110 Above high normal 98 -107 (mmol/L) Final CO2 07/12/2023 12:36:38 23 22-32 (mmo l/L) Final Anion gap 07/12/2023 12:36:38 8 7-15 (mmol /L) Final Glucose 07/12/2023 12:36:38 219 Above high normal 70 -120 (mg/dL) Final Albumin 07/12/2023 12:36:38 2.9 Below low normal 3.8 -5.0 (g/dL) Final AST (Aspartate aminotransferase) 07/12/2023 12:36:38 50 10-50 (U/L) Fin al Alk Phos 07/12/2023 12:36:38 274 Above high normal 35 -130 (U/L) Final Bilirubin, Total 07/12/2023 12:36:38 2.6 Above high no rmal <=1.2 (mg/dL) Final Calcium 07/12/2023 12:36:38 8.0 Below low normal 8.4 -10.2 (mg/dL) Final Protein 07/12/2023 12:36:38 5.7 Below low normal 6.0 -8.3 (g/dL) Final ALT (Alanine aminotransferase) 07/12/2023 12:36:38 32 10-50 (U/L) Layo al Performing Location [facility] [address] [place] [address]
--- OUTSIDE RECORDS SUMMARY | 2023-11-26 12:46 | External Medical Summary | Summary of Care ---
Author Name Unknown Organization [facility] Address [address] [facility] [place] [address] Phone [phone] Care Team Providers Care Grab Jack Worker Name Role Phone Francisco Cisse MD Primary Care Provider + Reason for Visit * Reason Onset Date Comments Oxygen Assessment 03/20/2023 NPO Encounter Details Date Type Department Care Team Description 03/20/2023 Telephone Pulmonary Medicine, [facility] 132 [facility] [place] [address] Jordan Ashley MD [address] [place] [address] Oxygen Assessment (NPO) Allergies No known active allergiesdocumented as of this encounter (statuses as of 07/04/2023) Medications Medication Sig Dispensed Refills Start Date [...] 03/06/2023 Active Lactulose 10 GM Oral Packet (Kristalose)Indicat [...] (Acetylcysteine (Nutrient)) Take by mouth. 0 Active Hospital, Clinic, or Other Facility [...] as of this encounter (statuses as of 07/04/2023) Active Problems Problem Noted Date Restrictive ventilatory [...] as of this encounter (statuses as of 07/04/2023) Resolved Problems Problem Noted Date Resolved Date [...] as of this encounter (statuses as of 07/04/2023) Immunizations Name Administration Dates Next Due COVID-19 mRNA, LNP-s, No Pre serve, 2-Dose Series (SeekPanda) 03/08/2021,02/15/2021 HepA Inact/HepB Recomb>=18yrs old 12/04/2019,04/2019,05/20/2019 11/19/2019 [...] already had his shot last month at [facility] Handy Lyons and Mckinley Cobian made aware) [...] Tobacco: Never Alcohol Use Standard Drinks/Week Comments No 0 (1 standard drink = 0.6 oz [...] encounter Miscellaneous Notes * Addendum Note - Jordan Ashley MD - 07/04/2023 4:22 PM EDTAddended by: JORDAN ASHLEY on: 07/04/2023 04:22 PM Modules accepted: Orders * Telephone Encounter - Rosa Sandoval LPN - 07/04/2023 1:59 PM EDT NPO report received and given to provider for review Results have been scanned into the chart for review * Telephone Encounter - Bela Gómez LPN - 07/03/2023 10:59 AM EDT This was done 05/16/23 and sent to [facility]. [facility] [place] will send them another copy. * Telephone Encounter - Rosa Sandoval LPN - 03/20/2023 12:54 PM EDT NPO order has been sent to documented in this encounter Plan of Treatment Upcoming Encounters Date Type Specialty Care Team Description 07/12/2023 Office Visit Internal Medicine Francisco Cisse MD 200 [place] [address] 07/16/2023 Procedure Only Urology Frank Peraza MD 27 [facility] [address] [place] [address] 08/08/2023 Imaging Radiology 08/30/2023 Office Visit Gastroenterology Lamar Tatum CRNP [address] [place] [address] 09/30/2023 Office Visit Hematology Oncology Jennifer Ramires MD 200 [place] [address] 06/11/2024 Office Visit Ophthalmology Cody Gonzalez DO [address] [place] [id number] Health Maintenance Due Date Last Done Comments [...] Additional history exists CKD PHOS USE SMARTSET 06275 01/28/202401/03, 07/26/2022, 12/05/2021, Additional history exists DIABETES-FOOT EXAM 03/06/2024 03/06/2023, 0 01/03/2022, 03/02/2021, Additional history exists CKD HGB USE SMARTSET 75004 07/03/202407/03, 06/29/2023, 06/24/2023, Additional history exists COLONOSCOPY-EVERY [...] this encounter Medical Devices Implanted Type Area Energy Analyst Device Identifier Shelf Expiration Date Model / Serial / Lot Clareon Iol Aspheric Hydrophobic Acrylic Iol Implanted:Qty: 1 on 04/23/2023 by Cody Gonzalez DO at OR [facility] Lens Left: Eye 11/12/2025 CNA0T0 / [id number] / Viatorr Tips Endoprosthesis 8-10 Mm X 8cm / 2cm Implanted:Qty: 1 on 10/07/2020 by Go Alvarado MD at [facility] Right: Abdomen 03/03/2023 [id number] / / [id number] Description:Viatorr TIPS End oprosthesis 8-10 mm x 8cm / 2cm, Manufactored by [employer] [place] [employer] Syr Pf 2ml Embospheres 100-300 - [id number] Implanted:Qty: 1 on 04/18/2021 by Kevin Lim DO at OR [facility] Left: Abdomen [employer] [id number] 11/25/2023 S220GH / / [id number] -5 Syr Pf 2ml Embospheres 100-300 - [id number] Implanted:Qty: 1 on 03/28/2022 at [facility] [employer] [id number] 08/31/2024 S220GH / / [id number] -5 Clareon Iol Aspheric Hydrophobic Acrylic Iol Implanted:Qty: 1 on 04/02/2023 by Cody Gonzalez DO at OR [facility] Right: Eye JAZMIN 11/12/2025 CNA0T0 / [id number] / documented as of this encounter Visit Diagnoses Diagnosis Chronic respiratory failure with hypoxia (HCC)- Primary Chronic respiratory failure documented in this encounter Advance Directives Documents on File Type Date Recorded Patient Business Systems Advisor Expl anation Advance Directives and Living Will 12/11/2022 ADVANCE DIRECTIVE / LIVING WILL LIVING WILL Power of Assembler Final 12/11/2022 POWER OF A TTORNEY Latest Code [...] the patient have Health Care Power of Assembler Final? No Full Code 07/22/2014 9:56 PM 07/24/2014 8:18 PM This order reflects the patients wishes and were consensually agreed upon. Question Answer Comments Discussion of Advance Directives occurred with: Patient Does the patient have a Living Will? No Does the patient have Health Care Power of Assembler Final? No Care Teams Grab Jack Worker Relationship Specialty Start Date End Date Francisco Cisse MD [address] [place] [address] PCP - General Internal Medicine 09/04/21 documented as of this encounter
--- OUTSIDE RECORDS SUMMARY | 2023-11-26 12:46 | External Medical Summary | Summary of Care ---
Author Name Unknown Organization [facility] Address [address] [facility] [place] [address] Phone [phone] Care Team Providers Care Station Master Name Role Phone Francisco Cisse MD Primary Care Provider + Reason for Visit * Reason Onset Date Comments Oxygen Assessment 03/20/2023 NPO Encounter Details Date Type Department Care Team Description 03/20/2023 Telephone Pulmonary Medicine, [facility] 132 [facility] [place] [address] Jordan Stanley MD [address] [place] [address] Oxygen Assessment (NPO) Allergies [...] mRNA, LNP-s, No Pre serve, 2-Dose Series (LivePerson) 03/08/2021,02/15/2021 HepA Inact/HepB Recomb>=18yrs old 12/04/2019,04/2019,05/20/2019 11/19/2019 [...] already had his shot last month at [facility] Handy Lyons and Mckinley Cobian made [...] done 05/16/23 and sent to [facility]. [facility] will send them another copy. * Telephone Encounter - Rosa Sandoval LPN - 03/20/2023 12:54 PM EDT NPO order has been sent to documented in this encounter Plan of Treatment Upcoming Encounters Date Type Specialty Care Team Description 07/12/2023 Office Visit Internal Medicine Francisco Cisse MD 200 [place] [address] 07/16/2023 Procedure Only Urology Frank Peraza MD 27 [facility] [address] [place] [address] 08/08/2023 Imaging Radiology 08/30/2023 Office Visit Gastroenterology Lamar Tatum CRNP [address] [place] [address] 09/30/2023 Office Visit Hematology Oncology Jennifer Ramires MD 200 [place] [address] 06/11/2024 Office Visit Ophthalmology Cody Gonzalez DO [address] [place] [address] Health Maintenance Due Date Last Done [...] Additional history exists CKD PHOS USE SMARTSET 11912 01/28/202401/03, 07/26/2022, 12/05/2021, Additional history exists DIABETES-FOOT EXAM 03/06/2024 03/06/2023, 0 01/03/2022, 03/02/2021, Additional history exists CKD HGB USE SMARTSET 36137 07/03/202407/03, 06/29/2023, 06/24/2023, Additional history exists COLONOSCOPY-EVERY [...] this encounter Medical Devices Implanted Type Area Medical Legal Investigator Device Identifier Shelf Expiration Date Model / Serial / Lot Clareon Iol Aspheric Hydrophobic Acrylic Iol Implanted:Qty: 1 on 04/23/2023 by Cody Gonzalez DO at OR [facility] Lens Left: Eye 11/12/2025 CNA0T0 / [id number] / Viatorr Tips Endoprosthesis 8-10 Mm X 8cm / 2cm Implanted:Qty: 1 on 10/07/2020 by Go Alvarado MD at [facility] Right: Abdomen 03/03/2023 [id number] / / [id number] Description:Viatorr TIPS End oprosthesis 8-10 mm x 8cm / 2cm, Manufactored by [employer] [employer] Syr Pf 2ml Embospheres 100-300 - [id number] Implanted:Qty: 1 on 04/18/2021 by Kevin Lim DO at OR [facility] Left: Abdomen [employer] [id number] 11/25/2023 S220GH / / [id number] -5 Syr Pf 2ml Embospheres 100-300 - [id number] Implanted:Qty: 1 on 03/28/2022 at [facility] [email or web address] [id number] 08/31/2024 S220GH / / [id number] -5 Clareon Iol Aspheric Hydrophobic Acrylic Iol Implanted:Qty: 1 on 04/02/2023 by Cody Gonzalez DO at OR [facility] Right: Eye JAZMIN 11/12/2025 CNA0T0 / [id number] / documented as of this encounter Advance Directives Documents on File Type Date Recorded 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 No Full Code 07/22/2014 9:56 PM 07/24/2014 8:18 PM This order reflects the patients wishes and were consensually agreed upon. Question Answer Comments Discussion of Advance Directives occurred with: Patient Does the patient have a Living Will? No Does the patient have Health Care Power of Target Protection Specialist? No Care Teams Station Master Relationship Specialty Start Date End Date Francisco Cisse MD [address] [place] [id number] PCP - General Internal Medicine 09/04/21 documented as of this encounter
--- OUTSIDE RECORDS SUMMARY | 2023-11-26 12:46 | External Medical Summary | Summary of Care ---
Author Name Unknown Organization [facility] Address [address] [place] [address] Phone [phone] Care Team Providers Care Fuselage Framer Name Role Phone Francisco Cisse MD Primary Care Provider + Reason for Referral * Evaluate & Treat - Unlimited Visits (Within 3 days (urgent)) - Authorized Specialty Diagnoses / Procedures Referred By Chacho fleming Referred To Contact Rail Bonder Diagnoses Fall with injury Francisco Cisse MD 200 [facility] [place] [address] Referral ID Status Reason Start Date Expiration Date Visits Requested Visits Authorized [id number] Authorized Specialty Services Required 07/08/2023 1 1 Question Answer Referral Priority Within 3 days (urgent) Program Type Case Management Complex Case Management [facility] Health Device(s) Requested Other (See Comment) - post d/c weekly IVR x 4 weeks Alarm Settings Standard per protocol Comments Post-Discharge Start date: 07/10/23 How many weeks: 4 If want time other than 9am, note time here: Reason for Visit * Reason Comments case management Encounter Details Date Type Department Care Team Description 07/08/2023 Rail BonderRespiratory Scientist Internal Medicine State Rey Avilez 200 [facility] [place] [address] Michelle Nash, RN [address] [place] [address] Medical home patient encounter*; Fall with injury Allergies No known active allergiesdocumented as of this encounter (statuses as of 07/08/2023) Medications Medication Sig Dispensed Refills Start Date [...] as of this encounter (statuses as of 07/08/2023) Active Problems Problem Noted Date Restrictive ventilatory [...] as of this encounter (statuses as of 07/08/2023) Resolved Problems Problem Noted Date Resolved Date [...] as of this encounter (statuses as of 07/08/2023) Immunizations Name Administration Dates Next Due COVID-19 [...] already had his shot last month at [facility] [employer]y Lyons and Mckinley Cobian [...] Progress Notes * Michelle Nash RN - 07/08/2023 11:11 AM EDT Rail Bonder Progress Note: ANDREW ASSESSMENT Date: 07/08/23 Assgned Patient Tier: 2 Connected with patient via telephone. Verified patient name/. Advised patient that call is beingrecorded for quality and training purposes. Assessment: Pt. noted the following: Spoke with patient today regarding recent hospital and rehab stay after a fall with injury. Reportshe is having ongoing pain not controlled with Tylenol and ice. States both of his sides hurt and itmakes it difficult to "sit up". Reports his back hurts as well. Rating pain at 3-4 out of 10 today.No longer using the lidocaine patches and prefers to avoid using oxycodone. Has not been wearing his brace due to it causes his sides to hurt more. Message sent to PCP for review. Denies any new falls and is using his walker for ambulation. [facility] SN/PT[facility]OT seeing him weekly. He is still taking the lactulose daily and is having 3-4 bm's a day which fluctuate between soft and runny. Denies any n/v/c at present time. Denies worsening confusion or "fogginess". FBS 180 this morning. Denies any chest pain, edema/swelling, blood in stool, dizziness. Does not weigh at home. Unable to review medications at this time-son manages medications/fills weekly pill liaison planner. Patient reports he is unsure what medications he is taking currently. Recommended to bring medications to hospital follow up for review. Reviewed red flags: increased pain, shortness of breath, falls. Advised to report any worsening symptoms to PCP. Will plan to follow up within one week. Did you receive an alert for an annual wellness visit? No Is this call for a hospital, fpc or rehab facility discharge to home? Yes [facility] 06/25-06/27 and [facility] 06/27-07/03 s/p fall w/ injury Medication Reconciliation: Medication Reconciliation completed: Unable to complete-patients son manages his medications and uses weekly pill liaison planner Review of Current goals: Discussed the following patient-centered CM goals with the patient during this discussion: -Pain: Patient will have pain well managed -Status: On Track Rating pain 3-4 out of 10 today. Using Tylenol and ice PRN. Message sent to PCP for further recommendations. -SAFETY: Prevent falls or injuries -Status: On Track Using walker for ambulation. Denies new falls. -Prevention: Prevent admission/readmission -Status: On Track Taking medications as prescribed. Reports ongoing pain. [facility] SN/PT/OT services weekly. Scheduled for hospital follow up 07/12. COPD Patient: No CHF Patient: NO CM Plan: Reviewed 3 Red Flags with patient. Advised to call CM with any of the following: Red Flag 1: increased pain, Red Flag 2: shortness of breath or Red Flag 3: falls and RPM ordered for patient: post discharge weekly IVR calls x 4 weeks Remote Patient Monitoring: [facility] IVR Plan for Future Contacts: Plan to follow up within 1 week to check progress on the following goals/needs as above. Planned contacts from the following parties will occur this week: PCP office visit as additional contacts per workflow. Advancement/Closure Plan: Keep patient at current Tier with reassessment per workflow. Patient provided CM contact information and encouraged to call with any changes in condition. SNP Member? No PCP Notified of enrollment in CM/HM program: Yes Is Provider in agreement with POC? Yes Michelle Nash RN Outpatient Case Management documented in this encounter Miscellaneous Notes * Addendum Note - Michelle Nash RN - 07/08/2023 12:18 PM EDTAddended by: MICHELLE NASH on: 07/08/2023 12:18 PM Modules accepted: Orders documented in this encounter Plan of Treatment Upcoming Encounters Date Type Specialty Care Team Description 07/12/2023 Office Visit Internal Medicine Francisco Cisse MD 200 [place] [address] 08/08/2023 Imaging Radiology 08/30/2023 Office Visit Gastroenterology Lamar Tatum CRNP [address] [place] [address] 09/30/2023 Office Visit Hematology Oncology Jennifer Ramires MD 200 [facility] [place] [address] 10/08/2023 Procedure Only Urology Frank Peraza MD [address] [place] [address] [place] [address] 06/11/2024 Office Visit Ophthalmology Cody Gonzalez DO [address] [place] [address] Scheduled Referrals Name Type Priority Associated Diagnoses Orde r Schedule REMOTE PATIENT MONITORING REFERRAL Referral Within 3 days (urgent) Fall with injury Ordered: 07/08/2023 Health Maintenance Due Date Last Done Comments [...] Additional history exists CKD PHOS USE SMARTSET 21812 01/28/202401/03, 07/26/2022, 12/05/2021, Additional history exists DIABETES-FOOT EXAM 03/06/2024 03/06/2023, 0 01/03/2022, 03/02/2021, Additional history exists CKD HGB USE SMARTSET 18809 07/03/202407/03, 06/29/2023, 06/24/2023, Additional history exists COLONOSCOPY-EVERY [...] this encounter Medical Devices Implanted Type Area Utility System Operator Device Identifier Shelf Expiration Date Model / Serial / Lot Clareon Iol Aspheric Hydrophobic Acrylic Iol Implanted:Qty: 1 on 04/23/2023 by Cody Gonzalez DO at OR [facility] Lens Left: Eye 11/12/2025 CNA0T0 / [id number] / Viatorr Tips Endoprosthesis 8-10 Mm X 8cm / 2cm Implanted:Qty: 1 on 10/07/2020 by Go Alvarado MD at [facility] Right: Abdomen 03/03/2023 [id number] / / [id number] Description:Viatorr TIPS End oprosthesis 8-10 mm x 8cm / 2cm, Manufactored by [employer] Syr Pf 2ml Embospheres 100-300 - [id number] Implanted:Qty: 1 on 04/18/2021 by Kevin Lim DO at OR [facility] Left: Abdomen [employer] [id number] 11/25/2023 S220GH / / [id number] -[id number] Syr Pf 2ml Embospheres 100-300 - [id number] Implanted:Qty: 1 on 03/28/2022 at [facility] [employer] [id number] 08/31/2024 S220GH / / [id number] -5 Clareon Iol Aspheric Hydrophobic Acrylic Iol Implanted:Qty: 1 on 04/02/2023 by Cody Gonzalez DO at OR [facility] Right: Eye JAZMIN 11/12/2025 CNA0T0 / [id number] / documented as of this encounter Visit Diagnoses Diagnosis Medical home patient encounter- Primary Other specified examination Fall with injury Injury, other and unspecified, unspecified site documented in this encounter Advance Directives Documents on File Type Date Recorded Patient Porter Used Car Lot Expl anation Advance Directives and Living Will 12/11/2022 ADVANCE DIRECTIVE / LIVING WILL LIVING WILL Power of Supervisor Logging 12/11/2022 POWER OF A TTORNEY Latest Code [...] the patient have Health Care Power of Supervisor Logging? No Full Code 07/22/2014 9:56 PM 07/24/2014 8:18 PM This order reflects the patients wishes and were consensually agreed upon. Question Answer Comments Discussion of Advance Directives occurred with: Patient Does the patient have a Living Will? No Does the patient have Health Care Power of Supervisor Logging? No Care Teams Fuselage Framer Relationship Specialty Start Date End Date Francisco Cisse MD [address] [place] [address], [place] [address] PCP - General Internal Medicine 09/04/21 documented as of this encounter
--- OUTSIDE RECORDS SUMMARY | 2023-11-26 12:46 | External Medical Summary | Summary of Care ---
Author Name Unknown Organization [facility] Address [address] [facility] [place] [address] Phone [phone] Care Team Providers Care Cotton Roll Packer Name Role Phone Francisco Cisse MD Primary Care Provider + Reason for Visit * Reason Comments Psoriasis Pt here regarding ps oriasis. States he is having issues with flares all over body. No treatment at this time. Interested in a home phototherapy unit. Encounter Details Date Type Department Care Team Description 06/28/2023 Office Visit Dermatology [facility] 200 [facility] [place] [address] Loni Gallardo MD [facility] [address] Psoriasis* Allergies No known active allergiesdocumented as of this encounter (statuses as of 06/29/2023) Medications Medication Sig Dispensed Refills Start Date [...] goal of less than 7.0% ([facility]) Use to test blood sugars 3 [...] as of this encounter (statuses as of 06/29/2023) Active Problems Problem Noted Date Restrictive ventilatory [...] as of this encounter (statuses as of 06/29/2023) Resolved Problems Problem Noted Date Resolved Date [...] as of this encounter (statuses as of 06/29/2023) Immunizations Name Administration Dates Next Due COVID-19 mRNA, LNP-s, No Pre serve, 2-Dose Series ([employer]) 03/08/2021,02/15/2021 HepA Inact/HepB Recomb>=18yrs old 12/04/2019,04/2019,05/20/2019 [...] already had his shot last month [facility] Handy Lyons and Mckinley Cobian made [...] as of this encounter Progress Notes * Loni Gallardo MD - 06/28/2023 1:35 PM EDT SUBJECTIVE: History of Present Illness: Luis Hale is a 73 year old male seen today for follow up of psoriasis. Date Last Appointment: 01/07/2023 (in office), Visit date not found (telemedicine) Whole body is flaring. Many health issues, psoriasis has been worsening in recent months as well. Only applying moisturizers currently with no improvement. Hx TAC cream, UVB helpful but transportation difficult b/c of [facility], [place] but D/C b/cof prostate CA, also currently has hepatic CA Currently in rehab facility after fall REVIEW OF SYSTEMS: SKIN: No other new or changing moles. HEME/LYMPH: No new or enlarging lumps or bumps. MEDICA TIONS: Current Outpatient Medications Medication Sig Dispense Refill [...] 15 mL before bedtime. 2700 mL 6 Mirtazapine 30 MG Oral Tablet (Remeron) Take 1 Tablet by mouth at bedtime. 90 Tablet 1 Repaglinide 1 MG Oral Tablet Take 1 Tablet by mouth in the morning and 1 Tablet at noon and 1 Tablet in the evening. Take with meals. 15 minutes before each meal. 90 Tablet 5 Lactulose 10 GM Oral [...] mouth in the morning. 60 Tablet 2 Ondansetron HCl 4 MG Oral Tablet Take 1 Tablet by mouth every 8 hours as needed for Nausea. 30 Tablet 0 Current Facility-Administered Medications Medication Dose Route Frequency Provider Last Rate Last Admin Albuterol Sulfate (Proventil) (2.5 MG/3ML) 0.083% inhalation solution 2.5 mg 2.5 mg Nebulizer FRAN Jennings PA-C Albuterol Sulfate (Proventil) (5 MG/ML) 0.5% *conc* inhalation solution 2.5 mg 2.5 mg NebulizerPRSary Jennings PA-C 2.5 mg at 03/20/23 0913 ALLERG IES: Patient has no known allergies. OBJECTIVE: GEN: transported in hospital bed, alert, no distress, appears oriented, pleasant and cooperative. SKIN: Detailed exam of hair, face including lids and lips, neck, bilateral upper ext. (arm, hand, fingers) and bilateral lower ext. (legs) completed and are normal except: 1. Diffuse scaly pink plaques and background xerosis ASSESS MENT/PLAN: 1. Psoriasis - BSA: 46-55%, Special Site: Flexures; severe; Status: worse . Con't emollients, mild soaps, home NB-UVB 2-3x a week, will initiate auth pt aware of risks/benefits, TAC cream (has at home and at [facility]) twice daily as needed to more symptomatic areas, faxed written instructions to [facility] on 06/28. Follow-up: pharmacist to contact, pt at [facility] There were no barriers tolearning and no other pain was related to today's visit. The patient and/or person accompanying patient demonstrates understanding of the visit and treatment. Loni Gallardo MD 06/28/2023 1:36 PM documented in this encounter Nursing Notes * Libra Day LPN - 06/28/2023 11:37 AM EDT Patient identified by name and date of . Do you have any concerns about pain management for today's visit? No Living Will or Advance Directive for Health Care as noted on problem list. [facility] is a way you can talk to your provider online through e-mail. Would you like to sign up? I can activate it for you? ALREADY ACTIVE Chief Complaint Patient presents with Psoriasis Pt here regarding psoriasis. States he is having issues with flares all over body. No treatment at this time. Interested in a home phototherapy unit. documented in this encounter Plan of Treatment Upcoming Encounters Date Type Specialty Care Team Description 07/16/2023 Procedure Only Urology Frank Peraza MD 27 [facility] [address] [place] [address] 08/08/2023 Imaging Radiology 08/30/2023 Office Visit Gastroenterology Lamar Tatum CRNP [address] [place] [address] 09/30/2023 Office Visit Hematology Oncology Jennifer Ramires MD [address] [facility] [place] [id number] 06/11/2024 Office Visit Ophthalmology Cody Gonzalez, DO [address] [facility] [address] [place] [id number] Health Maintenance Due Date Last Done Comments [...] Additional history exists CKD PHOS USE SMARTSET 41226 01/28/202401/03, 07/26/2022, 12/05/2021, Additional history exists DIABETES-FOOT EXAM 03/06/2024 03/06/2023, 0 01/03/2022, 03/02/2021, Additional history exists CKD HGB USE SMARTSET 13886 06/29/202406/29, 06/24/2023, 06/22/2023, Additional history exists COLONOSCOPY-EVERY 3 YRS AGES [...] this encounter Medical Devices Implanted Type Area Edge Plugger Device Identifier Shelf Expiration Date Model / Serial / Lot Clareon Iol Aspheric Hydrophobic Acrylic Iol Implanted:Qty: 1 on 04/23/2023 by Cody Gonzalez DO at OR [facility] Lens Left: Eye 11/12/2025 CNA0T0 / [id number] / Viatorr Tips Endoprosthesis 8-10 Mm X 8cm / 2cm Implanted:Qty: 1 on 10/07/2020 by Go Alvarado MD at [facility] Right: Abdomen 03/03/2023 [id number] / / [id number] Description:Viatorr TIPS End oprosthesis 8-10 mm x 8cm / 2cm, Manufactored by [employer] Syr Pf 2ml Embospheres 100-300 - [id number] Implanted:Qty: 1 on 04/18/2021 by Kevin Lim DO at OR [facility] Left: Abdomen PT [employer] [id number] 11/25/2023 S220GH / / [id number] -[id number] Syr Pf 2ml Embospheres 100-300 - [id number] Implanted:Qty: 1 on 03/28/2022 at [facility] [employer] [id number] 08/31/2024 20 / / [id number] -5 Clareon Iol Aspheric Hydrophobic Acrylic Iol Implanted:Qty: 1 on 04/02/2023 by Cody Gonzalez DO at OR [facility] Right: Eye JAZMIN 11/12/2025 CNA0T0 / [id number] / documented as of this encounter Visit Diagnoses Diagnosis Psoriasis- Primary Other psoriasis documented in this encounter Advance Directives Documents on File Type Date Recorded Patient Retail Receiving Clerk Expl anation Advance Directives and Living Will 12/11/2022 ADVANCE DIRECTIVE / LIVING WILL LIVING WILL Power of Spinning Lathe Operator Automatic 12/11/2022 POWER OF A TTORNEY Latest Code [...] the patient have Health Care Power of Spinning Lathe Operator Automatic? No Full Code 07/22/2014 9:56 PM 07/24/2014 8:18 PM This order reflects the patients wishes and were consensually agreed upon. Question Answer Comments Discussion of Advance Directives occurred with: Patient Does the patient have a Living Will? No Does the patient have Health Care Power of Spinning Lathe Operator Automatic? No Care Teams Cotton Roll Packer Relationship Specialty Start Date End Date Francisco Cisse MD [address] [place], [place] [address] PCP - General Internal Medicine 09/04/21 documented as of this encounter
--- OUTSIDE RECORDS SUMMARY | 2023-11-26 12:46 | External Medical Summary | Summary of Care ---
Author Name Unknown Organization [facility] Address [address] [place] [address] Phone [phone] Care Team Providers Care Slip Feeder Name Role Phone Francisco Cisse MD Primary Care Provider + Reason for Referral * Evaluate & Treat - Unlimited Visits (Within 3 days (urgent)) - Authorized Specialty Diagnoses / Procedures Referred By Chacho fleming Referred To Contact [employer] Tube Bender Diagnoses Fall with injury Francisco Cisse MD 200 [facility] [place] [address] Referral ID Status Reason Start Date Expiration Date Visits Requested Visits Authorized [id number] Authorized Specialty Services Required 07/08/2023 1 1 Question Answer Referral Priority Within 3 days (urgent) Program Type Case Management Complex Case Management [facility] Health Device(s) Requested Other (See Comment) - post d/c weekly IVR x 4 weeks Alarm Settings Standard per protocol Comments Post-Discharge Start date: 07/10/23 How many weeks: 4 If want time other than 9am, note time here: Reason for Visit * Reason Comments case management Encounter Details Date Type Department Care Team Description 07/08/2023 [employer] Tube BenderVice President Of Talent Acquisition Internal Medicine State Rey Avilez 200 [facility] [place] [address] Michelle Nash, RN [address] [place] [address] Medical home patient encounter*; Fall [...] had his shot last month at [facility] Handy Lyons and Mckinley Cobian made [...] Nash RN - 07/08/2023 11:11 AM EDT [employer] Tube Bender Progress Note: ANDREW ASSESSMENT Date: 07/08/23 Assgned [...] and is using his walker for ambulation. [facility] SN/PT/OT seeing him weekly. He is [...] at this time-son manages medications/fills weekly pill meeting planner. Patient reports he is unsure what [...] No Is this call for a hospital, halfway or rehab facility discharge to home? Yes [facility] 06/25-06/27 and [facility] 06/27-07/03 s/p fall w/ injury Medication Reconciliation: Medication Reconciliation completed: Unable to complete-patients son manages his medications and uses weekly pill meeting planner Review of Current goals: Discussed the [...] Taking medications as prescribed. Reports ongoing pain. [facility] SN/PT/OT services weekly. Scheduled for hospital [...] calls x 4 weeks Remote Patient Monitoring: [facility]R Plan for Future Contacts: Plan to [...] Visit Internal Medicine Francisco Cisse MD 200 [place] [address] 08/08/2023 Imaging Radiology 08/30/2023 Office Visit Gastroenterology Lamar Tatum CRNP [address] [place] [address] 09/30/2023 Office Visit Hematology Oncology Jennifer Ramires MD 200 [facility] [place] [address] 10/08/2023 Procedure Only Urology Frank Peraza MD [...] Additional history exists CKD PHOS USE SMARTSET 07694 01/28/202401/03, 07/26/2022, 12/05/2021, Additional history exists DIABETES-FOOT EXAM 03/06/2024 03/06/2023, 0 01/03/2022, 03/02/2021, Additional history exists CKD HGB USE SMARTSET 59691 07/03/202407/03, 06/29/2023, 06/24/2023, Additional history exists COLONOSCOPY-EVERY [...] this encounter Medical Devices Implanted Type Area Senior Electrical Project Manager Device Identifier Shelf Expiration Date Model / Serial / Lot Clareon Iol Aspheric Hydrophobic Acrylic Iol Implanted:Qty: 1 on 04/23/2023 by Cody Gonzalez DO at OR [facility] Lens Left: Eye 11/12/2025 CNA0T0 / [id number] / Viatorr Tips Endoprosthesis 8-10 Mm X 8cm / 2cm Implanted:Qty: 1 on 10/07/2020 by Go Alvarado MD at [facility] Right: Abdomen 03/03/2023 [id number] / / [id number] Description:Viatorr TIPS End oprosthesis 8-10 mm x 8cm / 2cm, Manufactored by [employer] Syr Pf 2ml Embospheres 100-300 - [id number] Implanted:Qty: 1 on 04/18/2021 by Kevin Lim DO at OR [facility] Left: Abdomen [employer] [id number] 11/25/2023 S220GH / / [id number] -5 Syr Pf 2ml Embospheres 100-300 - [id number] Implanted:Qty: 1 on 03/28/2022 at [facility] [employer] [id number] 08/31/2024 S220GH / / [id number] -5 Clareon Iol Aspheric Hydrophobic Acrylic Iol Implanted:Qty: 1 on 04/02/2023 by Cody Gonzalez DO at OR [facility] Right: Eye JAZMIN 11/12/2025 CNA0T0 / [id number] / documented as of this encounter Visit Diagnoses Diagnosis Medical home patient encounter- Primary Other specified examination Fall with injury Injury, other and unspecified, unspecified site documented in this encounter Advance Directives Documents on File Type Date Recorded Patient Talent Manager Expl anation Advance Directives and Living Will 12/11/2022 ADVANCE DIRECTIVE / LIVING WILL LIVING WILL Power of Carver And Checkerer Specials 12/11/2022 POWER OF A TTORNEY Latest Code [...] the patient have Health Care Power of Carver And Checkerer Specials? No Full Code 07/22/2014 9:56 PM 07/24/2014 8:18 PM This order reflects the patients wishes and were consensually agreed upon. Question Answer Comments Discussion of Advance Directives occurred with: Patient Does the patient have a Living Will? No Does the patient have Health Care Power of Carver And Checkerer Specials? No Care Teams Slip Feeder Relationship Specialty Start Date End Date Francisco Cisse MD [address] [place] [address], [place] [address] PCP - General Internal Medicine 09/04/21 documented as of this encounter
--- OUTSIDE RECORDS SUMMARY | 2023-11-26 12:46 | External Medical Summary | Summary of Care ---
Author Name Unknown Organization [facility] Address [address] [facility] [place] [address] Phone [phone] Care Team Providers Care Vp Research Name Role Phone Francisco Cisse MD Primary Care Provider + Reason for Visit * Reason Onset Date Comments Oxygen Assessment 03/20/2023 NPO Encounter Details Date Type Department Care Team Description 03/20/2023 Telephone Pulmonary Medicine, [facility] [address] [facility] [place] [address] Jordan Stanley MD [address] [place] [address] Oxygen Assessment (NPO) Allergies No known active allergiesdocumented as of this encounter (statuses as of 07/03/2023) Medications Medication Sig Dispensed Refills Start Date [...] as of this encounter (statuses as of 07/03/2023) Active Problems Problem Noted Date Restrictive ventilatory [...] as of this encounter (statuses as of 07/03/2023) Resolved Problems Problem Noted Date Resolved Date [...] as of this encounter (statuses as of 07/03/2023) Immunizations Name Administration Dates Next Due COVID-19 mRNA, LNP-s, No Pre serve, 2-Dose Series (BESOS) 03/08/2021,02/15/2021 HepA Inact/HepB Recomb>=18yrs old 12/04/2019,04/2019,05/20/2019 11/19/2019 [...] last month at [facility] Handy Lyons and Mckinley Cobian made aware) [...] encounter Miscellaneous Notes * Telephone Encounter - Bela Gómez LPN - 07/03/2023 10:59 AM EDT This was done 05/16/23 and sent to [facility]. [facility] will send them another copy. * Telephone Encounter - Rosa Sandoval LPN - 03/20/2023 12:54 PM EDT NPO order has been sent to documented in this encounter Plan of Treatment Upcoming Encounters Date Type Specialty Care Team Description 07/16/2023 Procedure Only Urology Frank Peraza MD [address] [place] [address] 08/08/2023 Imaging Radiology 08/30/2023 Office Visit Gastroenterology Lamar Tatum CRNP [address] [place] [address] 09/30/2023 Office Visit Hematology Oncology Jennifer Ramires MD [address] [place] [address] 06/11/2024 Office Visit Ophthalmology Cody Gonzalez DO [address] [place] [id number] Health Maintenance Due Date Last Done Comments [...] Additional history exists CKD PHOS USE SMARTSET 40234 01/28/202401/03, 07/26/2022, 12/05/2021, Additional history exists DIABETES-FOOT EXAM 03/06/2024 03/06/2023, 0 01/03/2022, 03/02/2021, Additional history exists CKD HGB USE SMARTSET 49796 07/03/202407/03, 06/29/2023, 06/24/2023, Additional history exists COLONOSCOPY-EVERY [...] this encounter Medical Devices Implanted Type Area Long Term Device Identifier Shelf Expiration Date Model / Serial / Lot Clareon Iol Aspheric Hydrophobic Acrylic Iol Implanted:Qty: 1 on 04/23/2023 by Cody Gonzalez DO at OR [facility] Lens Left: Eye 11/12/2025 CNA0T0 / [id number] / Viatorr Tips Endoprosthesis 8-10 Mm X 8cm / 2cm Implanted:Qty: 1 on 10/07/2020 by Go Alvarado MD at [facility] Right: Abdomen 03/03/2023 [id number] / / [id number] Description:Viatorr TIPS End oprosthesis 8-10 mm x 8cm / 2cm, Manufactored by [employer] Syr Pf 2ml Embospheres 100-300 - [id number] Implanted:Qty: 1 on 04/18/2021 by Kevin Lim DO at OR [facility] Left: Abdomen [employer] [id number] 11/25/2023 S220GH / / [id number] Syr Pf 2ml Embospheres 100-300 - [id number] Implanted:Qty: 1 on 03/28/2022 at [facility] [employer] [id number] 08/31/2024 S220GH / / [id number] -5 Clareon Iol Aspheric Hydrophobic Acrylic Iol Implanted:Qty: 1 on 04/02/2023 by Cody Gonzalez DO at OR [facility] Right: Eye JAZMIN 11/12/2025 CNA0T0 / [id number] / documented as of this encounter Advance Directives Documents on File Type Date Recorded Patient Residential Specialist Expl anation Advance Directives and Living Will 12/11/2022 ADVANCE DIRECTIVE / LIVING WILL LIVING WILL Power of Thermoforming Machine Operator 12/11/2022 POWER OF A TTORNEY [...] the patient have Health Care Power of Thermoforming Machine Operator? No Full Code 07/22/2014 9:56 PM 07/24/2014 8:18 PM This order reflects the patients wishes and were consensually agreed upon. Question Answer Comments Discussion of Advance Directives occurred with: Patient Does the patient have a Living Will? No Does the patient have Health Care Power of Thermoforming Machine Operator? No Care Teams Vp Research Relationship Specialty Start Date End Date Francisco Cisse MD [address] [place] [address] [place] [address] PCP - General Internal Medicine 09/04/21 documented as of this encounter
--- OUTSIDE RECORDS SUMMARY | 2023-11-26 12:46 | External Medical Summary ---
Author Name Unknown Address Unknown Organization K09:[facility] [place] [address] Laboratory Report Ordering Provider Test Date Status CHRISTIANE LOVE 07/03/2023 05:35:00 Final Observation Date Value Abnormality Reference (Units ) Status WBC, Total 07/03/2023 05:35:00 4.98 4.00-10.8 0 (K/uL) Final RBC 07/03/2023 05:35:00 2.61 4.50-5.25 (M/uL) Final Hemoglobin 07/03/2023 05:35:00 8.7 Below low normal 14 .0-16.8 (g/dL) Final HCT 07/03/2023 05:35:00 27.0 Below low normal 40. 0-48.4 (%) Final MCV 07/03/2023 05:35:00 103.4 82.0-99.5 (fL) Final MCH 07/03/2023 05:35:00 33.3 27.0-34.0 (pg) Final MCHC 07/03/2023 05:35:00 32.2 32.0-36.0 (g/dL) Final RDW 07/03/2023 05:35:00 20.7 11.5-15.5 (%) Final Platelets 07/03/2023 05:35:00 113 Below low normal 140 -400 (K/uL) Final MPV 07/03/2023 05:35:00 12.0 6.6-11.1 ( fL) Final Performing Location [facility] [place] [place] [address]
--- OUTSIDE RECORDS SUMMARY | 2023-11-26 12:46 | External Medical Summary | Summary of Care ---
Author Name Unknown Organization [facility] Address [address] [facility] [place] [address] Phone [phone] Care Team Providers Care Dumpster Driver Name Role Phone Francisco Cisse MD Primary Care Provider + Reason for Visit * Reason Onset Date Comments Oxygen Assessment 03/20/2023 NPO Encounter Details Date Type Department Care Team Description 03/20/2023 Telephone Pulmonary Medicine, [facility] [address] [facility] [place] [address] Jordan Ashley MD [address] [place] [address] Oxygen Assessment (NPO) Allergies [...] mRNA, LNP-s, No Pre serve, 2-Dose Series ([employer]) 03/08/2021,02/15/2021 HepA Inact/HepB Recomb>=18yrs old 12/04/2019,04/2019,05/20/2019 11/19/2019 [...] already had his shot last month at [facility] Handy Lyons and Mckinley Cobian made [...] encounter Miscellaneous Notes * Telephone Encounter - Jordan Ashley MD - 07/04/2023 4:22 PM EDT Your recent nocturnal pulse oximetry study showed episodes of significant drops in oxygen levels through the night. We would recommend use of oxygen therapy while sleeping at night. Prescription is being submitted to a [facility], who will be contacting you for set up home oxygen for nighttime use. Please contact the office with any additional questions. Sincerely Dr. Ashley * Addendum Note - Jordan Ashley MD [...] done 05/16/23 and sent to [facility]. [facility] will send them another copy. * Telephone Encounter - Rosa Sandoval LPN - 03/20/2023 12:54 PM EDT NPO order has been sent to documented in this encounter Plan of Treatment Upcoming Encounters Date Type Specialty Care Team Description 07/12/2023 Office Visit Internal Medicine Francisco Cisse MD [address] [facility], [place] [address] 07/16/2023 Procedure Only Urology Frank Peraza MD [address] [place] [address] 08/08/2023 Imaging Radiology 08/30/2023 Office Visit Gastroenterology Lamar Tatum CRNP [address] [place] [address] 09/30/2023 Office Visit Hematology Oncology Jennifer Ramires MD [address] [place] [address] 06/11/2024 Office Visit Ophthalmology Cody Gonzalez, [address] [place] [address] Health Maintenance Due Date Last Done Comments [...] Additional history exists CKD PHOS USE SMARTSET 41795 01/28/202401/03, 07/26/2022, 12/05/2021, Additional history exists DIABETES-FOOT EXAM 03/06/2024 03/06/2023, 0 01/03/2022, 03/02/2021, Additional history exists CKD HGB USE SMARTSET 49863 07/03/202407/03, 06/29/2023, 06/24/2023, Additional history exists COLONOSCOPY-EVERY [...] this encounter Medical Devices Implanted Type Area Grocery Clerk Device Identifier Shelf Expiration Date Model / Serial / Lot Clareon Iol Aspheric Hydrophobic Acrylic Iol Implanted:Qty: 1 on 04/23/2023 by Cody Gonzalez DO at OR [facility] Lens Left: Eye 11/12/2025 CNA0T0 / [id number] / Viatorr Tips Endoprosthesis 8-10 Mm X 8cm / 2cm Implanted:Qty: 1 on 10/07/2020 by Go Alvarado MD at [facility] Right: Abdomen 03/03/2023 [id number] / / [id number] Description:Viatorr TIPS End oprosthesis 8-10 mm x 8cm / 2cm, Manufactored by [employer] Syr Pf 2ml Embospheres 100-300 - [id number] Implanted:Qty: 1 on 04/18/2021 by Kevin Lim DO at OR [facility] Left: Abdomen [employer] [id number] 11/25/2023 S220GH / / [id number] -5 Syr Pf 2ml Embospheres 100-300 - [id number] Implanted:Qty: 1 on 03/28/2022 at [facility] [employer] [id number] 08/31/2024 S220GH / / [id number] -5 Clareon Iol Aspheric Hydrophobic Acrylic Iol Implanted:Qty: 1 on 04/02/2023 by Cody Gonzalez DO at [facility] Right: Eye JAZMIN 11/12/2025 CNA0T0 / [id number] / documented as of this encounter Visit Diagnoses Diagnosis Chronic respiratory failure with hypoxia (HCC)- Primary Chronic respiratory failure documented in this encounter Advance Directives Documents on File Type Date Recorded Patient Tapper Balance Wheel Screw Hole Expl anation Advance Directives and Living Will 12/11/2022 ADVANCE DIRECTIVE / LIVING WILL LIVING WILL Power of Aegis Operations Specialist 12/11/2022 POWER OF A TTORNEY [...] the patient have Health Care Power of Aegis Operations Specialist? No Full Code 07/22/2014 9:56 PM 07/24/2014 8:18 PM This order reflects the patients wishes and were consensually agreed upon. Question Answer Comments Discussion of Advance Directives occurred with: Patient Does the patient have a Living Will? No Does the patient have Health Care Power of Aegis Operations Specialist? No Care Teams Dumpster Driver Relationship Specialty Start Date End Date Francisco Cisse MD [address] [place] [address], [place] [address] PCP - General Internal Medicine 09/04/21 documented as of this encounter
--- OUTSIDE RECORDS SUMMARY | 2023-11-26 12:46 | External Medical Summary | Summary of Care ---
Author Name Unknown Organization [facility] Address [address] [place] [address] Phone [phone] Care Team Providers Care Mottle Lay Up Operator Name Role Phone Francisco Cisse MD Primary Care Provider + Reason for Referral * Evaluate & Treat - Unlimited Visits (Within 10 days (routine)) - Authorized Specialty Diagnoses / Procedures Referred By Chacho fleming Referred To Contact Pharmacist / Pharmacy Diagnoses Psoriasis Loni Gallardo MD [address] [place] [address] Referral ID Status Reason Start Date Expiration Date Visits Requested Visits Authorized [id number] Authorized Specialty Services Required 07/02/2023 99 99 [...] have his medication therapy managed by the [facility] Medication Therapy Disease Management Clinic ([facility]) per established policies, procedures, and protocols. I also certify that this referral may serve as an initiation of service for the management of drug therapy in the above noted patient. [facility] providers will be responsible for scheduling patient visits, obtaining appropriate laboratory studies, and adjusting medication management therapy per patient's need, in addition to those roles spelled out in the clinic policy, procedures, and drug management protocols. I understand that the service provided by the [facility] Clinic is voluntary and have informed patient that they can refuse the service at their discretion. I am aware that the [facility] Clinic will provide me with a copy of the patient encounter via my [employer] InBasket. I authorize the [facility] Clinic to carry out these activities on my behalf. I consider this program to be a necessary part of the patient's medical care. Encounter Details Date Type Department Care Team Description 06/29/2023 Telephone Dermatology [place] [address] [place] [address] Loni Gallardo MD [address] [facility] [place] [address] Allergies No known active allergiesdocumented as of this encounter (statuses as of 07/02/2023) Medications Medication Sig Dispensed Refills Start Date [...] goal of less than 7.0% ([facility]) Use to test blood sugars [...] as of this encounter (statuses as of 07/02/2023) Active Problems Problem Noted Date Restrictive ventilatory [...] as of this encounter (statuses as of 07/02/2023) Resolved Problems Problem Noted Date Resolved Date [...] as of this encounter (statuses as of 07/02/2023) Immunizations Name Administration Dates Next Due COVID-19 mRNA, LNP-s, No Pre serve, 2-Dose Series ([employer]) 03/08/2021,02/15/2021 HepA Inact/HepB Recomb>=18yrs old 12/04/2019,04/2019,05/20/2019 11/19/2019 [...] already had his shot last month at [facility] Handy Lyons and Mckinley [...] Miscellaneous Notes * Telephone Encounter - Kristen Almanza, [facility] - 07/02/2023 9:57 AM EDT Order submitted to ID: [id number] Kristen Almanza, PharmD,BCACP Medication Therapy Disease Management [...] of Care: specialty medication - route to [id number]. Referral to pharmacist for: Pharmacist Co-management See [...] Lamar Tatum CRNP [address] [place] [address] 09/30/2023 Office Visit Hematology Oncology [facility] [address] [facility] [address] 06/11/2024 Office Visit Ophthalmology Cody Gonzalez DO [address] [place] [address] Scheduled Referrals Name Type Priority Associated Diagnoses [...] Additional history exists CKD PHOS USE SMARTSET 50436 01/28/202401/03, 07/26/2022, 12/05/2021, Additional history exists DIABETES-FOOT EXAM 03/06/2024 03/06/2023, 0 01/03/2022, 03/02/2021, Additional history exists CKD HGB USE SMARTSET 17507 06/29/202406/29, 06/24/2023, 06/22/2023, Additional history exists COLONOSCOPY-EVERY [...] this encounter Medical Devices Implanted Type Area Donor Services Team Leader Device Identifier Shelf Expiration Date Model / Serial / Lot Clareon Iol Aspheric Hydrophobic Acrylic Iol Implanted:Qty: 1 on 04/23/2023 by Cody Gonzalez DO at OR [facility] Lens Left: Eye 11/12/2025 CNA0T0 / [id number] / Viatorr Tips Endoprosthesis 8-10 Mm X 8cm / 2cm Implanted:Qty: 1 on 10/07/2020 by Go Alvarado MD at [facility] Right: Abdomen 03/03/2023 [id number] / / [id number] Description:Viatorr TIPS End oprosthesis 8-10 mm x 8cm / 2cm, Manufactored by [employer] Syr Pf 2ml Embospheres 100-300 - [id number] Implanted:Qty: 1 on 04/18/2021 by Kevin Lim DO at OR [facility] Left: Abdomen [employer] [id number] 11/25/2023 S220GH / / [id number] -[id number] Syr Pf 2ml Embospheres 100-300 - [id number] Implanted:Qty: 1 on 03/28/2022 at [facility] [employer] [id number] 08/31/2024 S220GH / / [id number] -5 Clareon Iol Aspheric Hydrophobic Acrylic Iol Implanted:Qty: 1 on 04/02/2023 by Cody Gonzalez DO at OR [facility] Right: Eye JAZMIN 11/12/2025 CNA0T0 / [id number] / documented as of this encounter Visit Diagnoses Diagnosis Psoriasis- Primary Other psoriasis documented in this encounter Advance Directives Documents on File Type Date Recorded Patient Milk Condenser Expl anation Advance Directives and Living Will 12/11/2022 ADVANCE DIRECTIVE / LIVING WILL LIVING WILL Power of In Home Nanny 12/11/2022 POWER OF A TTORNEY Latest Code [...] the patient have Health Care Power of In Home Nanny? No Full Code 07/22/2014 9:56 PM 07/24/2014 8:18 PM This order reflects the patients wishes and were consensually agreed upon. Question Answer Comments Discussion of Advance Directives occurred with: Patient Does the patient have a Living Will? No Does the patient have Health Care Power of In Home Nanny? No Care Teams Mottle Lay Up Operator Relationship Specialty Start Date End Date Francisco Cisse MD [address] [place] [address], [place] [address] PCP - General Internal Medicine 09/04/21 documented as of this encounter
--- OUTSIDE RECORDS SUMMARY | 2023-11-26 12:46 | External Medical Summary | Summary of Care ---
Author Name Unknown Organization [facility] Address [address] [facility] [address] Phone [phone] Care Team Providers Care Supervisor Assembly Name Role Phone Francisco Cisse MD Primary Care Provider + Reason for Visit * Reason Comments Psoriasis Pt here regarding ps oriasis. States he is having issues with flares all over body. No treatment at this time. Interested in a home phototherapy unit. Encounter Details Date Type Department Care Team Description 06/28/2023 Office Visit Dermatology [facility] [address] [facility] [place] [address] [facility]ardo [facility] [address] Psor[facility]* Allergies No known active allergiesdocumented as [...] goal of less than 7.0% ([facility]) Use to test blood sugars [...] mRNA, LNP-s, No Pre serve, 2-Dose Series ([employer]) 03/08/2021,02/15/2021 HepA Inact/HepB Recomb>=18yrs old 12/04/2019,04/2019,05/20/2019 11/19/2019 [...] already had his shot last month at [facility] Handy Lyons and Mckinley Cobian made aware) [...] of this encounter Progress Notes * Kristen Almanza, [facility] - 07/02/2023 9:53 AM EDT Physician Approval/Patient Light Therapy Order Form: Panosol 3D - full body, 10 lamp/6ft Skin Type: II; Fair skin, blue eyes. Mata easily, bennett poorly PHYSICIAN APPROVAL Dr. Gallardo authorizes their patient Luis Hale, to purchase the product(s) marked above. This patient has been instructed to consult the clinic on a regular basis for follow-up exams and is aware of the treatment procedures with this/these product(s). The mill labor supervisor will supply a manual for each unit and/or meter purchased. DME HCPC code and Diagnosis Code: ICD-10-CM 1. Psoriasis L40.9 Procedure Code: 68861 Letter of Medical Necessity 07/02/2023 Luis Hale has been under Dr. Gallardo for Severe psoriasis covering a BSA of 46-55% The patient has a history of frequent flaring which requires immediate treatment to control thedisease. Numerous medications have been tried including: humira. Topical steroids. The patient cannot be treated with ultraviolet lights in the clinic due to unreliable transportation As Severe psoriasis is usually a life-long condition which requires long-term maintenance to prevent future flare-ups, my patient will most likely require UV light treatment for indefinite use with an on-going maintenance schedule. Treatment frequency of 3 times per week is required with likely moderation during the summer months. An FDA approved home-based UV light device would be effective for the patient's condition. The results of home UV light treatment compares to a single 12-week course of biologic therapy, which will be the alternative treatment if home UV light is not a viable option. Delaying biologic use for 3 months with home phototherapy is significantly more cost-effective than initiating biologics. Therefore, recommending a National Biological Panosol 3D - full body, 10 lamp/6ft with Narrowband UVB lamps due to its ease of use, effectiveness and relative safety derived from the device's controlof maximum exposure time coupled with its physician controlled timer where the patient can be guided through periodic visits in our dermatology office. This patient is capable of operating the ultraviolet light box and staying within prescribed exposure times and will be provided education on how to utilize their light box. Sincerely, Dr. Gallardo Dr. [facility] [address] [address] * Loni Gallardo MD - 06/28/2023 1:35 [...] UVB helpful but [facility] difficult [facility] b/cof prostate CA, also currently [...] TAC cream (has at home and at [facility]) twice daily as needed to more symptomatic areas, faxed written instructions to [facility] on 06/28. Follow-up: pharmacist to contact, pt at [facility] There were no barriers tolearning and no other pain was related to today's visit. The patient and/or person accompanying patient demonstrates understanding of the visit and treatment. Loni Gallardo MD 06/28/2023 1:36 PM documented in this encounter Nursing Notes * Libra Day, ANA - 06/28/2023 11:37 AM EDT Patient identified by name and date of . Do you have any concerns about pain management for today's visit? No Living Will or Advance Directive for Health Care as noted on problem list. [facility] is a way you can talk to [...] Hematology Oncology Jennifer Ramires MD [address] [facility] [id number] 06/11/2024 Office Visit Ophthalmology Cody Gonzalez, [address] [place] [address] Health Maintenance Due [...] Additional history exists CKD PHOS USE SMARTSET 52814 01/28/202401/03, 07/26/2022, 12/05/2021, Additional history exists DIABETES-FOOT EXAM 03/06/2024 03/06/2023, 0 01/03/2022, 03/02/2021, Additional history exists CKD HGB USE SMARTSET 29477 06/29/202406/29, 06/24/2023, 06/22/2023, Additional history exists COLONOSCOPY-EVERY [...] this encounter Medical Devices Implanted Type Area Barista Device Identifier Shelf Expiration Date Model / Serial / Lot Clareon Iol Aspheric Hydrophobic Acrylic Iol Implanted:Qty: 1 on 04/23/2023 by Cody Gonzalez DO at OR [facility] Lens Left: Eye 11/12/2025 CNA0T0 / [id number] / Viatorr Tips Endoprosthesis 8-10 Mm X 8cm / 2cm Implanted:Qty: 1 on 10/07/2020 by Go Alvarado MD at [facility] Right: Abdomen 03/03/2023 [id number] / / [id number] Description:Viatorr TIPS End oprosthesis 8-10 mm x 8cm / 2cm, Manufactored by [employer] Syr Pf 2ml Embospheres 100-300 - [id number] Implanted:Qty: 1 on 04/18/2021 by Kevin Lim DO at OR [facility] Left: Abdomen [employer] [id number] 11/25/2023 S220GH / / [id number] -[id number] Syr Pf 2ml Embospheres 100-300 - [id number] Implanted:Qty: 1 on 03/28/2022 at [facility] [employer] [id number] 08/31/2024 S220GH / / [id number] -[id number] Clareon Iol Aspheric Hydrophobic Acrylic Iol Implanted:Qty: 1 on 04/02/2023 by Cody Gonzalez DO at OR [facility] Right: Eye JAZMIN 11/12/2025 CNA0T0 / [id number] / documented as of this encounter Visit Diagnoses Diagnosis Psoriasis- Primary Other psoriasis documented in this encounter Advance Directives Documents on File Type Date Recorded Patient Clinical Cytogeneticist Expl anation Advance Directives and Living Will 12/11/2022 ADVANCE DIRECTIVE / LIVING WILL LIVING WILL Power of Center Hole Reamer 12/11/2022 POWER OF A TTORNEY Latest Code [...] the patient have Health Care Power of Center Hole Reamer? No Full Code 07/22/2014 9:56 PM 07/24/2014 8:18 PM This order reflects the patients wishes and were consensually agreed upon. Question Answer Comments Discussion of Advance Directives occurred with: Patient Does the patient have a Living Will? No Does the patient have Health Care Power of Center Hole Reamer? No Care Teams Supervisor Assembly Relationship Specialty Start Date End Date Francisco Cisse MD [address] [place] [address] PCP - General Internal Medicine 09/04/21 documented as of this encounter
--- OUTSIDE RECORDS SUMMARY | 2023-11-26 12:46 | External Medical Summary ---
Author Name Unknown Address Unknown Organization K[facility] [place] [address] Laboratory Report Ordering Provider Test Date Status HY,DEPAMPHILIS 06/29/2023 07:40:53 Final Observation Date Value Abnormality Reference (Units ) Status WBC, Total 06/29/2023 07:40:53 3.92 Below low normal 4. 00-10.80 (K/uL) Final RBC 06/29/2023 07:40:53 2.32 4.50-5.25 (M/uL) Final Hemoglobin 06/29/2023 07:40:53 7.8 Below low normal 14 .0-16.8 (g/dL) Final HCT 06/29/2023 07:40:53 23.4 Below low normal 40. 0-48.4 (%) Final MCV 06/29/2023 07:40:53 100.9 82.0-99.5 (fL) Final MCH 06/29/2023 07:40:53 33.6 27.0-34.0 (pg) Final MCHC 06/29/2023 07:40:53 33.3 32.0-36.0 (g/dL) Final RDW 06/29/2023 07:40:53 19.3 11.5-15.5 (%) Final Platelets 06/29/2023 07:40:53 100 Below low normal 140 -400 (K/uL) Final MPV 06/29/2023 07:40:53 11.5 6.6-11.1 ( fL) Final Performing Location [facility] [address] [place] [address]
--- OUTSIDE RECORDS SUMMARY | 2023-11-26 12:46 | External Medical Summary | Summary of Care ---
Author Name Unknown Organization [facility] Address [address] [place] [address] Phone [phone] Care Team Providers Care Group Leader Name Role Phone Francisco Cisse MD Primary Care Provider + Reason for Visit * Reason Onset Date Comments Appointment 07/05/2023 Encounter Details Date Type Department Care Team Description 07/05/2023 Telephone Urology, [facility] [address] [facility] [place] [address] Services, Scheduling [address] [place] [address] Appointment Allergies No known active allergiesdocumented as of this encounter (statuses as of 07/05/2023) Medications Medication Sig Dispensed Refills Start Date [...] as of this encounter (statuses as of 07/05/2023) Active Problems Problem Noted Date Restrictive ventilatory [...] as of this encounter (statuses as of 07/05/2023) Resolved Problems Problem Noted Date Resolved Date [...] as of this encounter (statuses as of 07/05/2023) Immunizations Name Administration Dates Next Due COVID-19 mRNA, LNP-s, No Pre serve, 2-Dose Series ([employer]) 03/08/2021,02/15/2021 HepA Inact/HepB Recomb>=18yrs old 12/04/2019,04/2019,05/20/2019 [...] already had his shot last month at [facility] Handy Jeremiedawson and Mckinley Cobian made aware) Seasonal Influenza, [...] shopping? (15 years old or older) No 11/06/20 20 Cognitive Status Response Date of Assessm ent Because of a physical, menta l, or emotional condition, do you have serious difficulty concentrating, remembering, or making decisions? (5 years old or older No 10/07/2020 documented as of this encounter Miscellaneous Notes * Telephone Encounter - ESTELLE Leblanc - 07/05/2023 11:34 AM EDT Rescheduled to 10/08/23. * Telephone Encounter - ESTELLE Urias - 07/05/2023 11:06 AM EDT Please call patient back to reschedule cysto with on 07/16 he does use transit he is getting mri done at [facility] this day documented in this encounter Plan of Treatment Upcoming Encounters Date Type Specialty Care Team Description 07/12/2023 Office Visit Internal Medicine Francisco Cisse MD 200 [place] [address] 08/08/2023 Imaging Radiology 08/30/2023 Office Visit Gastroenterology Lamar Tatum CRNP [address] [place] [address] 09/30/2023 Office Visit Hematology Oncology Jennifer Ramires MD 200 [place] [address] 10/08/2023 Procedure Only Urology Frank Peraza MD [address] [place] [address] 06/11/2024 Office Visit Ophthalmology Cody Gonzalez, DO [address] [place] [address] Health Maintenance Due Date Last Done [...] Additional history exists CKD PHOS USE SMARTSET 11495 01/28/202401/03, 07/26/2022, 12/05/2021, Additional history exists DIABETES-FOOT EXAM 03/06/2024 03/06/2023, 0 01/03/2022, 03/02/2021, Additional history exists CKD HGB USE SMARTSET 27343 07/03/202407/03, 06/29/2023, 06/24/2023, Additional history exists COLONOSCOPY-EVERY [...] this encounter Medical Devices Implanted Type Area Conference Manager Device Identifier Shelf Expiration Date Model / Serial / Lot Clareon Iol Aspheric Hydrophobic Acrylic Iol Implanted:Qty: 1 on 04/23/2023 by Cody Gonzalez DO at [facility] Lens Left: Eye 11/12/2025 CNA0T0 / [id number] / Viatorr Tips Endoprosthesis 8-10 Mm X 8cm / 2cm Implanted:Qty: 1 on 10/07/2020 by Go Alvarado MD at [facility] Right: Abdomen 03/03/2023 [id number] / / [id number] Description:Viatorr TIPS End oprosthesis 8-10 mm x 8cm / 2cm, Manufactored by [employer] Syr Pf 2ml Embospheres 100-300 - [id number] Implanted:Qty: 1 on 04/18/2021 by Kevin Lim DO at OR [facility] Left: Abdomen [employer] [id number] 11/25/2023 S220GH / / [id number] -[id number] Syr Pf 2ml Embospheres 100-300 - [id number] Implanted:Qty: 1 on 03/28/2022 at [facility] [employer] [id number] 08/31/2024 S220GH / / [id number] -5 Clareon Iol Aspheric Hydrophobic Acrylic Iol Implanted:Qty: 1 on 04/02/2023 by Cody Gonzalez DO at OR [facility] Right: Eye JAZMIN 11/12/2025 CNA0T0 / [id number] / documented as of this encounter Advance Directives Documents on File Type Date Recorded Patient Administrative Support Assoc Expl anation Advance Directives and Living Will 12/11/2022 ADVANCE DIRECTIVE / LIVING WILL LIVING WILL Power of Drilling Assistant 12/11/2022 POWER OF A TTORNEY Latest [...] the patient have Health Care Power of Drilling Assistant? No Full Code 07/22/2014 9:56 PM 07/24/2014 8:18 PM This order reflects the patients wishes and were consensually agreed upon. Question Answer Comments Discussion of Advance Directives occurred with: Patient Does the patient have a Living Will? No Does the patient have Health Care Power of Drilling Assistant? No Care Teams Group Leader Relationship Specialty Start Date End Date Francisco Cisse MD [address] [place] [address], [place] [address] PCP - General Internal Medicine 09/04/21 documented as of this encounter
--- OUTSIDE RECORDS SUMMARY | 2023-11-26 12:47 | External Medical Summary ---
Author Name Unknown Address Unknown Organization K0G:[facility] [address] [place] [address] Laboratory Report Ordering Provider Test Date Status HY,DEPAMPHILIS 06/22/2023 07:43:57 Final Observation Date Value Abnormality Reference (Units ) Status BUN 06/22/2023 07:43:57 36 Above high normal 6-20 (mg/dL) Final Creatinine 06/22/2023 07:43:57 1.4 Above high normal 0.6-1.2 (mg/dL) Final Glomerular filtration rate/1.73 sq M.predicted [Volume Rate/Area] in Serum, Plasma or Blood by Creatinine-based formula (CKD-EPI) 06/22/2023 07:43:57 55 Below low normal >=60 (mL/min) Final eGFR is calculated based on the CKD-EPI 2020 equation SODIUM 06/22/2023 07:43:57 146 135-146 (m mol/L) Final Potassium 06/22/2023 07:43:57 4.0 3.5-5.1 (m mol/L) Final Cl 06/22/2023 07:43:57 112 Above high normal 98 -107 (mmol/L) Final CO2 06/22/2023 07:43:57 24 22-32 (mmo l/L) Final Anion gap 06/22/2023 07:43:57 10 7-15 (mmol /L) Final Glucose 06/22/2023 07:43:57 160 Above high normal 70 -120 (mg/dL) Final Calcium 06/22/2023 07:43:57 8.3 Below low normal 8.4 -10.2 (mg/dL) Final Performing Location [facility] [address] [place] [address]
--- OUTSIDE RECORDS SUMMARY | 2023-11-26 12:47 | External Medical Summary ---
Author Name Unknown Address Unknown Organization K01:[facility] - [address] [place] [address] Laboratory Report Ordering Provider Test Date Status HY,DEPAMPHILIS 06/24/2023 05:30:00 Final Observation Date Value Abnormality Reference (Units ) Status Magnesium 06/24/2023 05:30:00 1.8 1.5-2.6 (m g/dL) Final Performing Location [facility] - [address] [place] [address]
--- OUTSIDE RECORDS SUMMARY | 2023-11-26 12:47 | External Medical Summary ---
Author Name Unknown Address Unknown Organization K0G:[facility]ORATORY [facility] [address] [place] [address] Laboratory Report Ordering Provider Test Date Status HY,DEPAMPHILIS 06/24/2023 05:30:00 Final Observation Date Value Abnormality Reference (Units ) Status WBC, Total 06/24/2023 05:30:00 4.23 4.00-10.8 0 (K/uL) Final RBC 06/24/2023 05:30:00 2.78 4.50-5.25 (M/uL) Final Hemoglobin 06/24/2023 05:30:00 9.2 Below low normal 14 .0-16.8 (g/dL) Final HCT 06/24/2023 05:30:00 28.0 Below low normal 40. 0-48.4 (%) Final MCV 06/24/2023 05:30:00 100.7 82.0-99.5 (fL) Final MCH 06/24/2023 05:30:00 33.1 27.0-34.0 (pg) Final MCHC 06/24/2023 05:30:00 32.9 32.0-36.0 (g/dL) Final RDW 06/24/2023 05:30:00 19.9 11.5-15.5 (%) Final Platelets 06/24/2023 05:30:00 102 Below low normal 140 -400 (K/uL) Final MPV 06/24/2023 05:30:00 12.6 6.6-11.1 ( fL) Final Performing Location LAB[facility]ATORY [facility] [address] [place] [address]
--- OUTSIDE RECORDS SUMMARY | 2023-11-26 12:47 | External Medical Summary ---
Author Name Unknown Address Unknown Organization K0G:[facility] [place] [address] [place] [address] Laboratory Report Ordering Provider Test Date Status HY,DEPAMPHILIS 06/24/2023 05:30:00 Final Observation Date Value Abnormality Reference (Units ) Status BUN 06/24/2023 05:30:00 34 Above high normal 6-20 (mg/dL) Final Creatinine 06/24/2023 05:30:00 1.3 Above high normal 0.6-1.2 (mg/dL) Final Glomerular filtration rate/1.73 sq M.predicted [Volume Rate/Area] in Serum, Plasma or Blood by Creatinine-based formula (CKD-EPI) 06/24/2023 05:30:00 60 >=60 (mL/min) Final eGFR is calculated based on the CKD-EPI 2020 equation SODIUM 06/24/2023 05:30:00 146 135-146 (m mol/L) Final Potassium 06/24/2023 05:30:00 4.2 3.5-5.1 (m mol/L) Final Cl 06/24/2023 05:30:00 111 Above high normal 98 -107 (mmol/L) Final CO2 06/24/2023 05:30:00 24 22-32 (mmo l/L) Final Anion gap 06/24/2023 05:30:00 11 7-15 (mmol /L) Final Glucose 06/24/2023 05:30:00 136 Above high normal 70 -120 (mg/dL) Final Calcium 06/24/2023 05:30:00 8.5 8.4-10.2 ( mg/dL) Final Performing Location LABORATORY [facility] [place] [address] [place] [address]
--- OUTSIDE RECORDS SUMMARY | 2023-11-26 12:47 | External Medical Summary ---
Author Name Unknown Address Unknown Organization K0G:LAB[facility]ATORY [facility] [place] [address] [place] [address] Laboratory Report Ordering Provider Test Date Status HY,DEPAMPHILIS 06/22/2023 07:43:57 Final Observation Date Value Abnormality Reference (Units ) Status WBC, Total 06/22/2023 07:43:57 4.80 4.00-10.8 0 (K/uL) Final RBC 06/22/2023 07:43:57 2.67 4.50-5.25 (M/uL) Final Hemoglobin 06/22/2023 07:43:57 8.9 Below low normal 14 .0-16.8 (g/dL) Final HCT 06/22/2023 07:43:57 27.1 Below low normal 40. 0-48.4 (%) Final MCV 06/22/2023 07:43:57 101.5 82.0-99.5 (fL) Final MCH 06/22/2023 07:43:57 33.3 27.0-34.0 (pg) Final MCHC 06/22/2023 07:43:57 32.8 32.0-36.0 (g/dL) Final RDW 06/22/2023 07:43:57 19.9 11.5-15.5 (%) Final Platelets 06/22/2023 07:43:57 97 Below low normal 140 -400 (K/uL) Final MPV 06/22/2023 07:43:57 11.4 6.6-11.1 ( fL) Final Performing Location [facility]ORY [facility] [address] [place] [address]
--- OUTSIDE RECORDS SUMMARY | 2023-11-26 12:47 | External Medical Summary | Summary of Care ---
Author Name Unknown Organization [facility] Address [address] [place] [address] Phone [phone] Care Team Providers Care Video Player Mechanic Name Role Phone Francisco Cisse MD Primary Care Provider + Reason for Visit * Reason Comments case management Encounter Details Date Type Department Care Team Description 06/14/2023 Police InspectorOrthopedic Podiatrist Internal Medicine [facility] [place] [address] [place] [address] Michelle Nash, RN [address] [place] [address] Medical home patient encounter* Allergies No known active allergiesdocumented as of this encounter (statuses as of 06/14/2023) Medications Medication Sig Dispensed Refills Start Date [...] as of this encounter (statuses as of 06/14/2023) Active Problems Problem Noted Date Restrictive ventilatory [...] as of this encounter (statuses as of 06/14/2023) Resolved Problems Problem Noted Date Resolved Date [...] as of this encounter (statuses as of 06/14/2023) Immunizations Name Administration Dates Next Due COVID-19 mRNA, LNP-s, No Pre serve, 2-Dose Series ([place]) 03/08/2021,02/15/2021 HepA Inact/HepB Recomb>=18yrs old 12/04/2019,04/2019,05/20/2019 11/19/2019 PPD 06/18/2017, 3,01/09/2012,03/06/2011 Pneumococcal Conjugate Vacc, 13 Valent (Prevnar) 05/01/2017 [...] already had his shot last month at [facility] Lyons and Mckinley Cobian [...] Progress Notes * Michelle Nash RN - 06/14/2023 9:46 AM EDT 1. Follow-up Post Discharge 2. Attempted Phone Call First Attempt 3. Call Outcome Unable to Leave Message 4. Plan To attempt another outreach documented in this encounter Plan of Treatment Upcoming Encounters Date Type Specialty Care Team Description 06/19/2023 Office Visit Cardiology Demian Long, [address] [place] [address] 06/24/2023 Office Visit Dermatology Loni Gallardo MD 200 [facility] [place] [address] 07/16/2023 Procedure Only Urology Frank Peraza MD [address] [facility] [address] [place] [address] 08/08/2023 Imaging Radiology 08/30/2023 Office Visit Gastroenterology Lamar Tatum CRNP [address] [place] [address] 09/30/2023 Office Visit Hematology Oncology Jennifer Ramires MD 200 [facility] [place] [address] 06/11/2024 Office Visit Ophthalmology Cody Gonzalez DO [address] [place] [id number] Health Maintenance Due Date Last Done Comments Zoster Vaccines (1 of 2) 2000 COVID-19 Vaccine (3 - Pfizer risk series) 04/05/2021 03/08/2021, 02/15/2021 Depression Screening, Annual for Pts 12 and Over 05/03/2022 05/03/2021 Influenza Vaccine (FLU shot) (#1) 2023 09/15/2021, 09/15/2021, 09/30/2020, Additional history exists Albumin/Creatinine Ratio 10/01/2023 022, 09/11/2021, 11/30/2020, Additional history exists GFR 11/27/2023 05/28/2023, 04/01, 03/28/2023, Additional history exists HbA1c 11/27/2023 05/28/2023, 01/03, 10/10/2022, Additional history exists DIABETES-EYE EXAM 01/17/2024 01/17/2023, , 01/17/2023, Additional history exists CKD PHOS USE SMARTSET 67730 01/28/202401/03, 07/26/2022, 12/05/2021, Additional history exists DIABETES-FOOT EXAM 03/06/2024 03/06/2023, 0 01/03/2022, 03/02/2021, Additional history exists CKD HGB USE SMARTSET 51823 05/28/202405/28, 05/28/2023, 05/16/2023, Additional history exists COLONOSCOPY-EVERY 3 YRS AGES [...] encounter Medical Devices Implanted Type Area Welding Operator Device Identifier Shelf Expiration Date Model / Serial / Lot Clareon Iol Aspheric Hydrophobic Acrylic Iol Implanted:Qty: 1 on 04/23/2023 by Cody Gonzalez DO at OR [facility] Lens Left: Eye 11/12/2025 CNA0T0 / [id number] / Viatorr Tips Endoprosthesis 8-10 Mm X 8cm / 2cm Implanted:Qty: 1 on 10/07/2020 by Go Alvarado MD at [facility] Right: Abdomen 03/03/2023 [id number] / / [id number] Description:Viatorr TIPS End oprosthesis 8-10 mm x 8cm / 2cm, Manufactored by [employer] Syr Pf 2ml Embospheres 100-300 - [id number] Implanted:Qty: 1 on 04/18/2021 by Kevin Lim DO at OR [facility] Left: Abdomen [employer] [id number] 11/25/2023 S220GH / / [id number] Syr Pf 2ml Embospheres 100-300 - [id number] Implanted:Qty: 1 on 03/28/2022 at [facility] [employer] [id number] 08/31/2024 S220GH / / [id number] -[id number] Clareon Iol Aspheric Hydrophobic Acrylic Iol Implanted:Qty: 1 on 04/02/2023 by Cody Gonzalez DO at OR [facility] Right: Eye JAZMIN 11/12/2025 CNA0T0 / [id number] / documented as of this encounter Visit Diagnoses Diagnosis Medical home patient encounter- Primary Other specified examination documented in this encounter Advance Directives Documents on File Type Date Recorded Patient Computer Technical Specialist Expl anation Advance Directives and Living Will 12/11/2022 ADVANCE DIRECTIVE / LIVING WILL LIVING WILL Power of Record Searcher 12/11/2022 POWER OF A TTORNEY Latest Code [...] the patient have Health Care Power of Record Searcher? No Full Code 07/22/2014 9:56 PM 07/24/2014 8:18 PM This order reflects the patients wishes and were consensually agreed upon. Question Answer Comments Discussion of Advance Directives occurred with: Patient Does the patient have a Living Will? No Does the patient have Health Care Power of Record Searcher? No Care Teams Video Player Mechanic Relationship Specialty Start Date End Date Francisco Cisse MD [address] [facility] [place] [address] PCP - General Internal Medicine 09/04/21 documented as of this encounter
--- OUTSIDE RECORDS SUMMARY | 2023-11-26 12:47 | External Medical Summary | Summary of Care ---
Author Name Unknown Organization [facility] Address [address] [place] [address] Phone [phone] Care Team Providers Care Well Drill Operator Name Role Phone Francisco Cisse MD Primary Care Provider + Encounter Details Date Type Department Care Team Description 06/16/2023 Result Scan Unspecified Department Franko Villanueva MD [facility] [place] [address] <No scans attached> Allergies No known active allergiesdocumented as of this encounter (statuses as of 06/18/2023) Medications Medication Sig Dispensed Refills Start Date [...] as of this encounter (statuses as of 06/18/2023) Active Problems Problem Noted Date Restrictive ventilatory [...] as of this encounter (statuses as of 06/18/2023) Resolved Problems Problem Noted Date Resolved Date [...] as of this encounter (statuses as of 06/18/2023) Immunizations Name Administration Dates Next Due COVID-19 mRNA, LNP-s, No Pre serve, 2-Dose Series ([employer]) 03/08/2021,02/15/2021 HepA Inact/HepB Recomb>=18yrs old 12/04/2019,04/2019,05/20/2019 11/19/2019 [...] already had his shot last month at [facility] Lyons and Mckinley Cobian [...] Office Visit Cardiology Demian Long, [address] [place] [address] 06/24/2023 Office Visit Dermatology Loni Gallardo MD 200 [place] [address] 07/16/2023 Procedure Only Urology Frank Peraza MD 27 [facility] [address] [place] [address] 08/08/2023 Imaging Radiology 08/30/2023 Office Visit Gastroenterology Lamar Tatum CRNP [address] [place] [address] 09/30/2023 Office Visit Hematology Oncology Jennifer Ramires MD [address] [place] [address] 06/11/2024 Office Visit Ophthalmology Cody Gonzalez DO [address] [place] [phone] Health Maintenance Due Date Last Done Comments Zoster Vaccines (1 of 2) 2000 COVID-19 Vaccine (3 - Pfizer risk series) 04/05/2021 03/08/2021, 02/15/2021 Depression Screening, Annual for Pts 12 and Over 05/03/2022 05/03/2021 Influenza Vaccine (FLU shot) (#1) 2023 09/15/2021, 09/15/2021, 09/30/2020, Additional history exists Albumin/Creatinine Ratio 10/01/202310/01/2 022, 09/11/2021, 11/30/2020, Additional history exists GFR 11/27/2023 05/28/2023, 0505/2023, 03/28/2023, Additional history exists HbA1c 11/27/2023 05/28/2023, 01/03, 10/10/2022, Additional history exists DIABETES-EYE EXAM 01/17/2024 01/17/2023, , 01/17/2023, Additional history exists CKD PHOS USE SMARTSET 98023 01/28/202401/03, 07/26/2022, 12/05/2021, Additional history exists DIABETES-FOOT EXAM 03/06/2024 03/06/2023, 0 01/03/2022, 03/02/2021, Additional history exists CKD HGB USE SMARTSET 04828 05/28/202405/28, 05/28/2023, 05/16/2023, Additional history exists COLONOSCOPY-EVERY [...] this encounter Medical Devices Implanted Type Area Barrel Reamer Device Identifier Shelf Expiration Date Model / Serial / Lot Clareon Iol Aspheric Hydrophobic Acrylic Iol Implanted:Qty: 1 on 04/23/2023 by Cody Gonzalez DO at OR [facility] Lens Left: Eye 11/12/2025 CNA0T0 / [id number] / Viatorr Tips Endoprosthesis 8-10 Mm X 8cm / 2cm Implanted:Qty: 1 on 10/07/2020 by Go Alvarado MD at [facility] Right: Abdomen 03/03/2023 [id number] / / [id number] Description:Viatorr TIPS End oprosthesis 8-10 mm x 8cm / 2cm, Manufactored by [employer] Syr Pf 2ml Embospheres 100-300 - [id number] Implanted:Qty: 1 on 04/18/2021 by Keivn Lim DO at OR [facility] Left: Abdomen [employer] [id number] 11/25/2023 S220GH / / [id number] -[id number] Syr Pf 2ml Embospheres 100-300 - [id number] Implanted:Qty: 1 on 03/28/2022 at [facility] [employer] [id number] 08/31/2024 S220GH / / [id number] -[id number] Clareon Iol Aspheric Hydrophobic Acrylic Iol Implanted:Qty: 1 on 04/02/2023 by Cody Gonzalez DO at OR [facility] Right: Eye JAZMIN 11/12/2025 CNA0T0 / [id number] / documented as of this encounter Procedures Procedure Name Priority Date/Time Associated Diagnosis Comments RADIOLOGY SCANNED RESULT 06/16/2023 documented in this encounter Results * RADIOLOGY SCANNED RESULT (06/16/2023) 06/16/2023 Farnko Villanueva MD DIAGNOSTIC RADI OLOGY SERVICES documented in this encounter Advance Directives Documents on File Type Date Recorded Patient Director Of Regional Sales Expl anation Advance Directives and Living Will 12/11/2022 ADVANCE DIRECTIVE / LIVING WILL LIVING WILL Power of Integration Software Engineer 12/11/2022 POWER OF A TTORNEY Latest [...] the patient have Health Care Power of Integration Software Engineer? No Full Code 07/22/2014 9:56 PM 07/24/2014 8:18 PM This order reflects the patients wishes and were consensually agreed upon. Question Answer Comments Discussion of Advance Directives occurred with: Patient Does the patient have a Living Will? No Does the patient have Health Care Power of Integration Software Engineer? No Care Teams Well Drill Operator Relationship Specialty Start Date End Date Francisco Cisse MD [facility] [place] [address] PCP - General Internal Medicine 09/04/21 documented as of this encounter
--- OUTSIDE RECORDS SUMMARY | 2023-11-26 12:47 | External Medical Summary | Summary of Care ---
Author Name Unknown Organization [facility] Address [address] [facility] [place] [address] Phone [phone] Care Team Providers Care Detail Maker And Fitter Name Role Phone Francisco Cisse MD Primary Care Provider + Reason for Visit * Reason Onset Date Comments Appointment 05/28/2023 Encounter Details Date Type Department Care Team Description 05/28/2023 [facility] [place] [address] Lamar Tatum CRNP [address] [place] [address] Appointment Allergies No known active allergiesdocumented as of this encounter (statuses as of 06/28/2023) Medications Medication Sig Dispensed Refills Start Date [...] 1 02/15/2023 Active Repaglinide 1 MG Oral TabletIndications: Type 2 diabetes mellitus with stage 3a chronic kidney disease, without long-term current use of insulin (HCC) Take 1 Tablet by mouth in the morning and 1 Tablet at noon and 1 Tablet in the evening. Take with meals. 15 minutes before each meal. 90 Tablet 5 03/06/2023 Active Lactulose 10 GM Oral Packet (Kristalose)Indica [...] Units under the skin daily with dinner. 6 mL 11 03/06/2023 3 Discontinue d(Refill) Furosemide 20 MG Oral Tablet (Lasix)Indications :Cirrhosis of liver with ascites, unspecified hepatic cirrhosis type (HCC) Take 2 Tablets by mouth in the morning. 60 Tablet 2 04/26/2023 3 Discontinue d(Refill) Hospital, Clinic, or Other [...] as of this encounter (statuses as of 06/28/2023) Active Problems Problem Noted Date Restrictive ventilatory [...] as of this encounter (statuses as of 06/28/2023) Resolved Problems Problem Noted Date Resolved Date [...] as of this encounter (statuses as of 06/28/2023) Immunizations Name Administration Dates Next Due COVID-19 mRNA, LNP-s, No Pre serve, 2-Dose Series ([employer]) 03/08/2021,02/15/2021 HepA Inact/HepB Recomb>=18yrs old 12/04/2019,04/2019,05/20/2019 [...] his shot last month at [facility] Jeremiedawson and Mckinley Cobian made aware) [...] * Telephone Encounter - ESTELLE Mcneal - 06/28/2023 11:13 AM EDT LMOM for pt to call back to schedule * Telephone Encounter - ESTELLE Mcneal - 06/07/2023 11:20 AM EDT Letter sent * Telephone Encounter - ESTELLE Mcneal - 06/06/2023 12:47 PM EDT Unable to leave VM * Telephone Encounter - Mikki Ashley - 05/28/2023 3:22 PM EDT Tried calling patient to get him scheduled for an EGD @ [facility] from his check out today on 05.28. His phone went straight to voicemail and his voicemail has not been setup yet. DX: GAVE (gastric antral vascular ectasia) [K31.819] Per pete. documented in this encounter Plan of Treatment Upcoming Encounters Date Type Specialty Care Team Description 06/28/2023 Office Visit Dermatology Loni Gallardo MD 200 [facility], [place] [address] 07/16/2023 Procedure Only Urology Frank Peraza MD [address] [address] [place] [address] 08/08/2023 Imaging Radiology 08/30/2023 Office Visit Gastroenterology Lamar Tatum CRNP [address] [place] [address] 09/30/2023 Office Visit Hematology Oncology [facility] [address] [facility] [phone] 06/11/2024 Office Visit Ophthalmology Cody Gonzalez, DO [address] [place] [address] Health Maintenance Due [...] 05/28/2023, 01/03, 10/10/2022, Additional history exists GFR 12/25/2023 06/24/2023, 06/02, 05/28/2023, Additional history exists DIABETES-EYE EXAM 01/17/2024 01/17/2023, , 01/17/2023, Additional history exists CKD PHOS USE SMARTSET 58328 01/28/202401/03, 07/26/2022, 12/05/2021, Additional history exists DIABETES-FOOT EXAM 03/06/2024 03/06/2023, 0 01/03/2022, 03/02/2021, Additional history exists CKD HGB USE SMARTSET 67766 06/24/202406/24, 06/22/2023, 05/28/2023, Additional history exists COLONOSCOPY-EVERY 3 YRS AGES [...] this encounter Medical Devices Implanted Type Area Breaker Mechanic Device Identifier Shelf Expiration Date Model / Serial / Lot Clareon Iol Aspheric Hydrophobic Acrylic Iol Implanted:Qty: 1 on 04/23/2023 by Cody Gonzalez DO at OR [facility] Lens Left: Eye 11/12/2025 CNA0T0 / [id number] / Viatorr Tips Endoprosthesis 8-10 Mm X 8cm / 2cm Implanted:Qty: 1 on 10/07/2020 by Go Alvarado MD at [facility] Right: Abdomen 03/03/2023 [id number] / / [id number] Description:Viatorr TIPS End oprosthesis 8-10 mm x 8cm / 2cm, Manufactored by [employer] Syr Pf 2ml Embospheres 100-300 - [id number] Implanted:Qty: 1 on 04/18/2021 by Kevin Lim DO at OR [facility] Left: Abdomen [employer] [id number] 11/25/2023 S220GH / / [id number] -5 Syr Pf 2ml [facility] 100-300 - [id number] Implanted:Qty: 1 on 03/28/2022 at [facility] [employer] [id number] 08/31/2024 S220 / / [id number] -[id number] Clareon Iol Aspheric Hydrophobic Acrylic Iol Implanted:Qty: 1 on 04/02/2023 by Cody Gonzalez DO at OR [facility] Right: Eye JAZMIN 11/12/2025 CNA0T0 / [id number] / documented as of this encounter Advance Directives Documents on File Type Date Recorded Patient Sailor Expl anation Advance Directives and Living Will 12/11/2022 ADVANCE DIRECTIVE / LIVING WILL LIVING WILL Power of Pouncing Lathe Operator 12/11/2022 POWER OF A TTORNEY Latest [...] the patient have Health Care Power of Pouncing Lathe Operator? No Full Code 07/22/2014 9:56 PM 07/24/2014 8:18 PM This order reflects the patients wishes and were consensually agreed upon. Question Answer Comments Discussion of Advance Directives occurred with: Patient Does the patient have a Living Will? No Does the patient have Health Care Power of Pouncing Lathe Operator? No Care Teams Detail Maker And Fitter Relationship Specialty Start Date End Date Francisco Cisse MD [address] [place] [address] PCP - General Internal Medicine 09/04/21 documented as of this encounter
--- OUTSIDE RECORDS SUMMARY | 2023-11-26 12:47 | External Medical Summary ---
Author Name Unknown Address Unknown Organization K0G:[facility] [address] [place] [address] Laboratory Report Ordering Provider Test Date Status HY,DEPAMPHILIS 06/29/2023 07:40:53 Final Observation Date Value Abnormality Reference (Units ) Status BUN 06/29/2023 07:40:53 34 Above high normal 6-20 (mg/dL) Final Creatinine 06/29/2023 07:40:53 1.3 Above high normal 0.6-1.2 (mg/dL) Final Glomerular filtration rate/1.73 sq M.predicted [Volume Rate/Area] in Serum, Plasma or Blood by Creatinine-based formula (CKD-EPI) 06/29/2023 07:40:53 60 >=60 (mL/min) Final eGFR is calculated based on the CKD-EPI 2020 equation SODIUM 06/29/2023 07:40:53 141 135-146 (m mol/L) Final Potassium 06/29/2023 07:40:53 4.1 3.5-5.1 (m mol/L) Final Cl 06/29/2023 07:40:53 114 Above high normal 98 -107 (mmol/L) Final CO2 06/29/2023 07:40:53 20 Below low normal 22- 32 (mmol/L) Final Anion gap 06/29/2023 07:40:53 7 7-15 (mmol /L) Final Glucose 06/29/2023 07:40:53 91 70-120 (mg /dL) Final Calcium 06/29/2023 07:40:53 7.9 Below low normal 8.4 -10.2 (mg/dL) Final Performing Location [facility] [address] [place] [address]
--- OUTSIDE RECORDS SUMMARY | 2023-11-26 12:47 | External Medical Summary | Summary of Care ---
Author Name Unknown Organization [facility] Address [address] [place] [address] Phone [phone] Care Team Providers Care Java J2Ee Application Developer Name Role Phone Francisco Cisse MD Primary Care Provider + Reason for Visit * Reason Comments case management Encounter Details Date Type Department Care Team Description 06/17/2023 Strategic Client ExecutiveHome Care Specialist Internal Medicine [facility]ens[facility] [place] [address] [place] [address] Michelle Nash, RN [address] [place] [address] Medical home patient encounter* Allergies No known active allergiesdocumented as of this encounter (statuses as of 06/17/2023) Medications Medication Sig Dispensed Refills Start Date [...] as of this encounter (statuses as of 06/17/2023) Active Problems Problem Noted Date Restrictive ventilatory [...] as of this encounter (statuses as of 06/17/2023) Resolved Problems Problem Noted Date Resolved Date [...] as of this encounter (statuses as of 06/17/2023) Immunizations Name Administration Dates Next Due COVID-19 mRNA, LNP-s, No Pre serve, 2-Dose Series (CYBRA) 03/08/2021,02/15/2021 HepA Inact/HepB Recomb>=18yrs old 12/04/2019,04/2019,05/20/2019 11/19/2019 [...] had his shot last month at [facility] Handy Lyons and Mckinley Cobian [...] Progress Notes * Michelle Nash RN - 06/17/2023 10:00 AM EDT SITUATION: CCM tier 2 f/u ANDREW BACKGROUND: Hx hepatic encephalopathy Cirrhosis of liver-awaiting transpant Liver cell carcinoma s/p TACE ASSESSMENT: Reports he is currently admitted to [facility] since Saturday night. Stepped on his pant legs and fell-landed "flat on my back". Was transported by EMS. Reports the pain was "excruciating" immediately after the fall. Had multiple tests completed and no evidence of any fractures at this point. Wearing a lidocaine patch at present time-pain is 4/10 today. Denies any n/v/d/c at present time-last bm yesterday. FBS this am was 91. RECOMMENDATION: Advised CM would follow up with patient upon discharge home. Will monitor. Michelle Nash RN General Internal Medicine [facility] 200 [facility] [place] [address] documented in this encounter Plan of Treatment Upcoming Encounters Date Type Specialty Care Team Description 06/19/2023 Office Visit Cardiology Demian Logn DO [address] [place] [address] 06/24/2023 Office Visit [facility]at[facility] [id number] 07/16/2023 Procedure Only Urology Frank Peraza MD [address] [place] [address] [place] [address] 08/08/2023 Imaging Radiology 08/30/2023 Office Visit Gastroenterology Lamar Tatum CRNP [address] [place] [address] 09/30/2023 Office Visit Hematology Oncology Jennifer Ramires MD [address] [place] [address] 06/11/2024 Office Visit Ophthalmology Cody Gonzalez, DO [address] [place] [address] Health Maintenance Due Date Last Done Comments Zoster Vaccines (1 of 2) 2000 COVID-19 Vaccine (3 - Pfizer risk series) 04/05/2021 03/08/2021, 02/15/2021 Depression Screening, Annual for Pts 12 and Over 05/03/2022 05/03/2021 Influenza Vaccine (FLU shot) (#1) 2023 09/15/2021, 09/15/2021, 09/30/2020, Additional history exists Albumin/Creatinine Ratio 10/01/202310/01/ 022, 09/11/2021, 11/30/2020, Additional history exists GFR 11/27/2023 05/28/2023, 04/01, 03/28/2023, Additional history exists HbA1c 11/27/2023 05/28/2023, 01/03, 10/10/2022, Additional history exists DIABETES-EYE EXAM 01/17/2024 01/17/2023, , 01/17/2023, Additional history exists CKD PHOS USE SMARTSET 81548 01/28/202401/03, 07/26/2022, 12/05/2021, Additional history exists DIABETES-FOOT EXAM 03/06/2024 03/06/2023, 0 01/03/2022, 03/02/2021, Additional history exists CKD HGB USE SMARTSET 56470 05/28/202405/28, 05/28/2023, 05/16/2023, Additional history exists COLONOSCOPY-EVERY [...] this encounter Medical Devices Implanted Type Area Monkey Trainer Device Identifier Shelf Expiration Date Model / Serial / Lot Clareon Iol Aspheric Hydrophobic Acrylic Iol Implanted:Qty: 1 on 04/23/2023 by Cody Gonzalez DO at OR [facility] Lens Left: Eye 11/12/2025 CNA0T0 / [id number] / Viatorr Tips Endoprosthesis 8-10 Mm X 8cm / 2cm Implanted:Qty: 1 on 10/07/2020 by Go Alvarado MD at [facility] Right: Abdomen 03/03/2023 [id number] / / [id number] Description:Viatorr TIPS End oprosthesis 8-10 mm x 8cm / 2cm, Manufactored by [employer] Syr Pf 2ml Embospheres 100-300 - [id number] Implanted:Qty: 1 on 04/18/2021 by Kevin Lim DO at OR [facility] Left: Abdomen [employer] [id number] 11/25/2023 S220GH / / [id number] -[id number] Syr Pf 2ml Embospheres 100-300 - [id number] Implanted:Qty: 1 on 03/28/2022 at [facility] [employer] [id number] 08/31/2024 S220GH / / [id number] -[id number] Clareon Iol Aspheric Hydrophobic Acrylic Iol Implanted:Qty: 1 on 04/02/2023 by Cody Gonzalez DO at OR [facility] Right: Eye JAZMIN 11/12/2025 CNA0T0 / [id number] / documented as of this encounter Visit Diagnoses Diagnosis Medical home patient encounter- Primary Other specified examination documented in this encounter Advance Directives Documents on File Type Date Recorded Patient Hair Machine Operator Expl anation Advance Directives and Living Will 12/11/2022 ADVANCE DIRECTIVE / LIVING WILL LIVING WILL Power of Dry Molder 12/11/2022 POWER OF A TTORNEY Latest Code [...] the patient have Health Care Power of Dry Molder? No Full Code 07/22/2014 9:56 PM 07/24/2014 8:18 PM This order reflects the patients wishes and were consensually agreed upon. Question Answer Comments Discussion of Advance Directives occurred with: Patient Does the patient have a Living Will? No Does the patient have Health Care Power of Dry Molder? No Care Teams Java J2Ee Application Developer Relationship Specialty Start Date End Date Francisco Cisse MD [address] [place] [address] [place] [address] PCP - General Internal Medicine 09/04/21 documented as of this encounter
--- OUTSIDE RECORDS SUMMARY | 2023-11-26 12:48 | External Medical Summary | Summary of Care ---
Author Name Unknown Organization [facility] Address [address] [facility] [facility] [address] Phone [phone] Care Team Providers Care Rehab Liaison Name Role Phone Francisco Cash MD Primary Care Provider + Reason for Visit * Reason Onset Date Comments Medication Refill 06/03/2023 Encounter Details Date Type Department Care Team Description 06/03/2023 Refill General Internal Medicine [facility] [place] [address] [facility] [place] [address] Francisco Cash MD 200 [facility], [place] [address] Type 2 diabetes mellitus with hemoglobin A1c goal of less than 7.0% ([facility]) Allergies No known active allergiesdocumented as of this encounter (statuses as of 06/05/2023) Medications Medication Sig Dispensed Refills Start Date [...] and 15 mL before bedtime. 2700 mL 01/29/2023 Active Mirtazapine 30 MG Oral Tablet [...] before bedtime. 60 Packet 5 03/06/2023 Active Additional Information Patient not taking.Reported on 05/28/2023 Multivitamin Men 50+ Oral Tablet Take by [...] the morning. 90 Tablet 1 04/08/2023 Active Furosemide 20 MG Oral Tablet (Lasix)Indications :Cirrhosis of liver with ascites, unspecified hepatic cirrhosis type (HCC) Take 2 Tablets by mouth in the morning. 60 Tablet 2 04/26/2023 Active FreeStyle Wang 2 Sensor Use as [...] with dinner. 15 mL 3 06/05/2023 Active Lantus SoloStar 100 UNIT/ML Subcutaneous Solution Pen-injectorIndica tions:Type 2 diabetes mellitus with hemoglobin A1c goal of less than 7.0% (HCC) Inject 20 Units under the skin daily with dinner. 6 mL 11 03/06/2023 3 Discontinue d(Refill) Hospital, Clinic, or Other [...] as of this encounter (statuses as of 06/05/2023) Active Problems Problem Noted Date Restrictive ventilatory [...] as of this encounter (statuses as of 06/05/2023) Resolved Problems Problem Noted Date Resolved Date [...] as of this encounter (statuses as of 06/05/2023) Immunizations Name Administration Dates Next Due COVID-19 mRNA, LNP-s, No Pre serve, 2-Dose Series (Normal) 03/08/2021,02/15/2021 HepA Inact/HepB Recomb>=18yrs old 12/04/2019,04/2019,05/20/2019 11/19/2019 [...] already had his shot last month at [facility] [employer] [...] Miscellaneous Notes * Telephone Encounter - Francisco Cash MD - 06/05/2023 11:09 AM EDTSigned Prescriptions: Disp Refills Lantus SoloStar 100 UNIT/ML Subcutaneous S*15 mL 3 Sig: Inject 20 Units under the skin daily with dinner. Authorizing Provider: FRANCISCO CASH * Telephone Encounter - Brittany Yang LPN - 06/05/2023 10:42 AM EDTPending Prescriptions: Disp Refills Lantus SoloStar 100 UNIT/ML Subcutaneous S*15 mL 3 Sig: Inject 20 Units under the skin daily with dinner. * Telephone Encounter - Brittany Yang LPN - 06/05/2023 10:37 AM EDT Provider to address: pcp Reason for Call: Medication Refill Contact: [facility] Contact Type: Medication Outcome: Sent to providerr Total Time including non face to face (minutes): 5 Pending Prescriptions: Disp Refills Lantus SoloStar 100 UNIT/ML Subcutaneous *6 mL 11 Sig: Inject 20 Units under the skin daily with dinner. 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 Labs: Lab Results Component Value Date/Time CREATININE - [facility] 1.3 (H) 05/28/2023 12:14 PM CREATININE - [facility] 1.5 (H) 11/30/2020 11:06 AM CREATININE, RANDOM URINE - [facility] 221 10/01/2022 12:56 PM CREATININE, RANDOM URINE - [facility] 44 11/30/2020 11:15 AM CREATININE-OUTSIDE LAB 1.49 (A) 07/26/2022 12:00 AM Lab Results Component Value Date/Time POTASSIUM - [facility] 4.2 05/28/2023 12:14 PM POTASSIUM - [facility] 4.1 11/30/2020 11:06 AM POTASSIUM, WHOLE BLOOD - [facility] 4.5 10/07/2020 10:42 AM POTASSIUM-OUTSIDE LAB 4.3 07/26/2022 12:00 AM Lab Results Component Value Date/Time TSH - [facility] 2.62 03/15/2023 11:21 AM TSH - [facility] 2.36 10/24/2020 01:56 PM Lab Results Component Value Date/Time LDL CHOLESTEROL (CALCULATED) - [facility] 43 01/28/2023 09:00 AM LDL CHOLESTEROL (CALCULATED) - [facility] 48 11/20/2021 01:28 PM LDL CHOLESTEROL (CALCULATED) - [facility] 34 08/15/2020 10:35 AM LDL CHOLESTEROL (CALCULATED) - [facility] 39 06/06/2020 02:58 PM LDL CHOLESTEROL (DIRECT MEASURE) - [facility] NOT APPLICABLE 06/06/2020 02:58 PM LDL CHOLESTEROL (DIRECT MEASURE) - [facility] 62 01/12/2019 01:26 PM LDL CHOLESTEROL (DIRECT MEASURE) - [facility] 44 01/15/2018 03:24 PM LDL CHOLESTEROL (DIRECT MEASURE) - [facility] 86 05/01/2017 02:00 PM Lab Results Component Value Date/Time ALT - [facility] 33 05/28/2023 12:14 PM ALT - [facility] 28 11/30/2020 11:06 AM ALT-OUTSIDE LAB 23 02/04/2020 12:00 AM Hemoglobin AIC Results: Lab Results Component Value Date/Time HEMOGLOBIN A1C - [facility] 5.3 05/28/2023 12:14 PM HEMOGLOBIN A1C - [facility] 7.8 (H) 01/28/2023 09:00 AM HEMOGLOBIN A1C - [facility] 4.9 10/10/2022 01:14 PM HEMOGLOBIN A1C - [facility] 6.0 (H) 11/07/2020 01:07 PM HEMOGLOBIN A1C - [facility] 5.2 08/15/2020 10:35 AM HEMOGLOBIN A1C - [facility] 5.0 06/06/2020 02:58 PM HEMOGLOBIN A1C POCT - [facility] 5.4 07/18/2021 02:28 PM HEMOGLOBIN A1C POCT - [facility] 5.6 03/02/2021 11:54 AM documented in this encounter Plan of Treatment Upcoming Encounters Date Type Specialty Care Team Description 06/10/2023 Office Visit Internal Medicine Joaquin Snider PA-C [address] [place] [address] 06/24/2023 Office Visit Dermatology Loni Gallardo MD [address] [place] [address] 07/16/2023 Procedure Only Urology Frank Peraza MD [address] [place] [address] 08/08/2023 Imaging Radiology 08/30/2023 Office Visit Gastroenterology Lamar Tatum CRNP [address] [place] [address] 09/30/2023 Office Visit Hematology Oncology Jennifer Ramires MD [address] [place] [address] 06/11/2024 Office Visit Ophthalmology Cody Gonzalez DO [facility] [place] [id number] Health Maintenance Due Date Last Done Comments [...] Additional history exists CKD PHOS USE SMARTSET 27836 01/28/202401/03, 07/26/2022, 12/05/2021, Additional history exists DIABETES-FOOT EXAM 03/06/2024 03/06/2023, 0 01/03/2022, 03/02/2021, Additional history exists CKD HGB USE SMARTSET 44754 05/28/202405/28, 05/28/2023, 05/16/2023, Additional history exists COLONOSCOPY-EVERY [...] this encounter Medical Devices Implanted Type Area Enginehouse Brakeman Device Identifier Shelf Expiration Date Model / Serial / Lot Clareon Iol Aspheric Hydrophobic Acrylic Iol Implanted:Qty: 1 on 04/23/2023 by Cody Gonzalez DO at OR [facility] Lens Left: Eye 11/12/2025 CNA0T0 / [id number] / Viatorr Tips Endoprosthesis 8-10 Mm X 8cm / 2cm Implanted:Qty: 1 on 10/07/2020 by Go Alvarado MD at [facility] Right: Abdomen 03/03/2023 [id number] / / [id number] Description:Viatorr TIPS End oprosthesis 8-10 mm x 8cm / 2cm, Manufactored by [employer] Syr Pf 2ml Embospheres 100-300 - [id number] Implanted:Qty: 1 on 04/18/2021 by Kevin Lim DO at OR [facility] Left: Abdomen [employer] [id number] 11/25/2023 S220GH / / [id number] -[id number] Syr Pf 2ml Embospheres 100-300 - [id number] Implanted:Qty: 1 on 03/28/2022 at [facility] [employer] [id number] 08/31/2024 S220GH / / [id number] -5 Clareon Iol Aspheric Hydrophobic Acrylic Iol Implanted:Qty: 1 on 04/02/2023 by Cody Gonzalez DO at OR [facility] Right: Eye JAZMIN 11/12/2025 CNA0T0 / [id number] / documented as of this encounter Visit Diagnoses Diagnosis Type 2 diabetes mellitus with hemoglobin A1c goal of less than 7.0% (HCC) documented in this encounter Advance Directives Documents on File Type Date Recorded Patient Family Resource Management Specialist Expl anation Advance Directives and Living Will 12/11/2022 ADVANCE DIRECTIVE / LIVING WILL LIVING WILL Power of Laser Beam Trim Operator 12/11/2022 POWER OF A TTORNEY Latest [...] the patient have Health Care Power of Laser Beam Trim Operator? No Full Code 07/22/2014 9:56 PM 07/24/2014 8:18 PM This order reflects the patients wishes and were consensually agreed upon. Question Answer Comments Discussion of Advance Directives occurred with: Patient Does the patient have a Living Will? No Does the patient have Health Care Power of Laser Beam Trim Operator? No Care Teams Rehab Liaison Relationship Specialty Start Date End Date Francisco Cash MD [address] [place] [address] [place] [address] PCP - General Internal Medicine 09/04/21 documented as of this encounter
--- OUTSIDE RECORDS SUMMARY | 2023-11-26 12:48 | External Medical Summary | Summary of Care ---
Author Name Unknown Organization [facility] Address [address] [facility] [place] [address] Phone [phone] Care Team Providers Care Money Laundering Investigator Name Role Phone Francisco Cisse MD Primary Care Provider + Reason for Visit * Reason Comments Post-Op 1 month Post Op OU. Pt states "vision is good" Encounter Details Date Type Department Care Team Description 05/30/2023 Office Visit Ophthalmology, [facility] [address] [place] [address] Cody Gonzalez, DO 21 [facility] [place] [address] Pseudophakia* Allergies No known active allergiesdocumented as of this encounter (statuses as of 05/30/2023) Medications Medication Sig Dispensed Refills Start Date [...] and 1 Tablet before bedtime. 180 Tablet 01/29/2023 Active Lactulose 10 GM/15ML Oral Solution [...] and 1 Packet before bedtime. 60 Packet 03/06/2023 Active Additional Information Patient not taking.Reported on 05/28/2023 Lantus SoloStar 100 UNIT/ML Subcutaneous Solution Pen-injectorIndicat ions:Type 2 diabetes mellitus with hemoglobin A1c goal of less than 7.0% (HCC) Inject 20 Units under the skin daily with dinner. 6 mL 11 03/06/2023 Active Multivitamin Men 50+ Oral Tablet [...] 04/08/2023 Active Furosemide 20 MG Oral Tablet (Lasix)Indications: [...] Oral Capsule 1 Capsule. 0 05/17/2023 Active Hospital, Clinic, or Other Facility Administered [...] as of this encounter (statuses as of 05/30/2023) Active Problems Problem Noted Date Restrictive ventilatory [...] as of this encounter (statuses as of 05/30/2023) Resolved Problems Problem Noted Date Resolved Date [...] as of this encounter (statuses as of 05/30/2023) Immunizations Name Administration Dates Next Due COVID-19 mRNA, LNP-s, No Pre serve, 2-Dose Series ([place]o) 03/08/2021,02/15/2021 HepA Inact/HepB Recomb>=18yrs old 12/04/2019,04/2019,05/20/2019 11/19/2019 [...] had his shot last month at [facility] [employer] [facility] [employer] [employer] [...] as of this encounter Progress Notes * Cody Gonzalez, DO - 05/30/2023 3:45 PM EDT 05/30/2023 [facility] Note HPI: Luis Hale is a 73 year old pt who presents to the eye clinic today for return. Location: OU Severity: Post op Quality: No complaints Exacerbating/Remitting Factors: Denies Associated Sx: Denies POHx: Fuch's dystrophy OU Pseudophakia OU OD (Ensor TCC CNA0T0 19.0 04/02/2023) OS (Ensor TCC CNA0T0 19.0 04/24/2023) Eye Medications:Denies Family Ocular History: Denies ROS: Pt denies acute vision changes Pt denies new onset double vision Pt denies new PHELPS Pt denies new issues surrounding eyes Pt admits to above Please see below for full exam details. Base Eye Exam Visual Acuity (Snellen - Linear) Right Left Dist sc 20/25 -2 20/25 -2 Tonometry (Tonopen, 3:23 PM) Right Left Pressure 14 15 Pupils Light Shape React APD Right 4 Round Brisk None Left 4 Round Brisk None Visual Jolly (Counting fingers) Right Left Full Full Extraocular Movement Right Left Full, Ortho Full, Ortho Neuro/Psych Oriented x3: Yes Mood/Affect: Normal Additional Tests Keratometry K1 [place] K2 [place] Right 42.00 001 43.25 091 Left 42.25 006 44.00 096 Slit Lamp and Fundus Exam Slit Lamp Exam Right Left Lids/Lashes DCL, deep set orbit DCL, deep set orbit Conjunctiva/Sclera White and quiet White and quiet Cornea Diffuse guttata with mild endo scarring Diffuse guttata with mild endo scarring, ?trace edema Anterior Chamber Deep and quiet Deep and quiet Iris Round and reactive Round and reactive Lens PCIOL PCIOL Refraction Manifest Refraction (Auto) Sphere Cylinder [place] Right -0.25 +0.25 108 Left -1.25 +2.00 104 Refraction 05/30/23 Right eye: -0.25 +0.50 x 110 20/25 Left eye: -1.00 + 2.00 x 105 20/25 ADD: +3.00 - J1 PD: 60 A/P: Pseudophakia OU -Looks great, did well -New Rx given RTC 1 year or sooner prn. Cody Gonzalez DO 05/30/23 documented in this encounter Nursing Notes * DAVE Espinoza - 05/30/2023 3:17 PM EDT Luis Hale presents for p/o check. 1 month post-op ECCE w/IOL insertion Surgical eye- BOTH EYES Patient denies complaints Have you finished taking the prescribed drops? Yes Current Ophthalmic Medications: None Vision, tonometry and AR can be found in the ophth exam documented in this encounter Plan of Treatment Upcoming Encounters Date Type Specialty Care Team Description 06/10/2023 Office Visit Internal Medicine Joaquin Snider PA-C [address] [place] [address] 06/24/2023 Office Visit Dermatology Loni Gallardo MD [address] [place] [address] 07/16/2023 Procedure Only Urology Frank Peraza MD [address] [place] [address] 08/08/2023 Imaging Radiology 08/30/2023 Office Visit Gastroenterology Lamar Tatum CRNP [address] [place] [address] 09/30/2023 Office Visit Hematology Oncology Jennifer Ramires MD 200 [place] [address] 06/11/2024 Office Visit Ophthalmology Cody Gonzalez, DO [address] [place] [address] Health Maintenance Due Date Last Done Comments Zoster Vaccines (1 of 2) 2000 COVID-19 Vaccine (3 - Pfizer risk series) 04/05/2021 03/08/2021, 02/15/2021 Depression Screening, Annual for Pts 12 and Over 05/03/2022 05/03/2021 Influenza Vaccine (FLU shot) (Season Ended) 2023 09/15/2021, 09/15/2021, 09/30/2020, Additional history exists Albumin/Creatinine Ratio 10/01/2023 022, 09/11/2021, 11/30/2020, Additional history exists GFR 11/27/2023 05/28/2023, 04/01, 03/28/2023, Additional history exists HbA1c 11/27/2023 05/28/2023, 01/03, 10/10/2022, Additional history exists DIABETES-EYE EXAM 01/17/2024 01/17/2023, , 01/17/2023, Additional history exists CKD PHOS USE SMARTSET 55751 01/28/202401/03, 07/26/2022, 12/05/2021, Additional history exists DIABETES-FOOT EXAM 03/06/2024 03/06/2023, 0 01/03/2022, 03/02/2021, Additional history exists CKD HGB USE SMARTSET 95332 05/28/202405/28, 05/28/2023, 05/16/2023, Additional history exists COLONOSCOPY-EVERY [...] this encounter Medical Devices Implanted Type Area Agricultural Equipment Sales Manager Device Identifier Shelf Expiration Date Model / Serial / Lot Clareon Iol Aspheric Hydrophobic Acrylic Iol Implanted:Qty: 1 on 04/23/2023 by Cody Gonzalez DO at OR [facility] Lens Left: Eye 11/12/2025 CNA0T0 / [id number] / Viatorr Tips Endoprosthesis 8-10 Mm X 8cm / 2cm Implanted:Qty: 1 on 10/07/2020 by Go Alvarado MD at [facility] Right: Abdomen 03/03/2023 [id number] / / [id number] Description:Viatorr TIPS End oprosthesis 8-10 mm x 8cm / 2cm, Manufactored by [employer] Syr Pf 2ml Embospheres 100-300 - [id number] Implanted:Qty: 1 on 04/18/2021 by Kevin Lim DO at OR [facility] Left: Abdomen [employer] [id number] 11/25/2023 S220GH / / [id number] -5 Syr Pf 2ml Embospheres 100-300 - [id number] Implanted:Qty: 1 on 03/28/2022 at [facility] [employer] [id number] 08/31/2024 S220GH / / [id number] -5 Clareon Iol Aspheric Hydrophobic Acrylic Iol Implanted:Qty: 1 on 04/02/2023 by Cody Gonzalez DO at OR [facility] Right: Eye JAZMIN 11/12/2025 CNA0T0 / [id number] / documented as of this encounter Visit Diagnoses Diagnosis Pseudophakia- Primary Lens replaced by other means documented in this encounter Advance Directives Documents on File Type Date Recorded Patient Laboratory Engineer Expl anation Advance Directives and Living Will 12/11/2022 ADVANCE DIRECTIVE / LIVING WILL LIVING WILL Power of Air Breaker Operator 12/11/2022 POWER OF A TTORNEY Latest [...] the patient have Health Care Power of Air Breaker Operator? No Full Code 07/22/2014 9:56 PM 07/24/2014 8:18 PM This order reflects the patients wishes and were consensually agreed upon. Question Answer Comments Discussion of Advance Directives occurred with: Patient Does the patient have a Living Will? No Does the patient have Health Care Power of Air Breaker Operator? No Care Teams Money Laundering Investigator Relationship Specialty Start Date End Date Francisco Cisse MD [address] [place] [address] PCP - General Internal Medicine 09/04/21 documented as of this encounter
--- OUTSIDE RECORDS SUMMARY | 2023-11-26 12:48 | External Medical Summary | Summary of Care ---
Author Name Unknown Organization [facility] Address [address] [place] [address] Phone [phone] Care Team Providers Care Tire Mold Tester Name Role Phone Francisco Cisse MD Primary Care Provider + Reason for Visit * Reason Onset Date Comments case management 06/12/2023 Encounter Details Date Type Department Care Team Description 06/12/2023 Director Industrial Relations Telephone General Internal Medicine [facility] [address] Michelle Nash, RN [address] [place] [address] case management Allergies No known active allergiesdocumented as of this encounter (statuses as of 06/13/2023) Medications Medication Sig Dispensed Refills Start Date [...] as of this encounter (statuses as of 06/13/2023) Active Problems Problem Noted Date Restrictive ventilatory [...] as of this encounter (statuses as of 06/13/2023) Resolved Problems Problem Noted Date Resolved Date [...] as of this encounter (statuses as of 06/13/2023) Immunizations Name Administration Dates Next Due COVID-19 mRNA, LNP-s, No Pre serve, 2-Dose Series (Inaura) 03/08/2021,02/15/2021 HepA Inact/HepB Recomb>=18yrs old 12/04/2019,04/2019,05/20/2019 11/19/2019 [...] already had his shot last month at [facility] [employer] Mckin[facility] Cobian made aware) [...] encounter Miscellaneous Notes * Telephone Encounter - Lorri Swain CMA - 06/12/2023 6:45 PM EDT Patient aware and verbalized understanding, denied any sx's and states he is taking dramamine and it is helping * Telephone Encounter - Shelbie Ayers MD - 06/12/2023 6:37 PM EDT Ensure no blood in the stool or black tarry stool or severe abdominal pain given history of GAVE, last EGD 05/22/23 Last bilirubin higher than prior, if any jaundice and if any above/new symptoms should go to ER foreval Trial zofran, rx sent. Hemoglobin Results: Lab Results Component Value Date/Time HGB - [facility] 10.2 (L) 05/28/2023 12:14 PM HGB - [facility] 10.1 (L) 05/16/2023 11:18 AM HGB - [facility] 8.7 (L) 04/16/2023 04:46 PM HGB - [facility] 9.7 (L) 11/30/2020 11:06 AM HGB - [facility] 10.0 (L) 10/24/2020 01:56 PM HGB - [facility] 9.9 (L) 10/11/2020 01:59 PM * Telephone Encounter - Michelle Nash RN - 06/12/2023 4:26 PM EDT SITUATION: nausea BACKGROUND: Hx hepatic encephalopathy Cirrhosis of liver-awaiting transpant Liver cell carcinoma s/p TACE ASSESSMENT: Reporting ongoing nausea beginning last night and persisting today. Denies vomiting. Did take medications as prescribed this morning. Denies any diarrhea, constipation-last bm was this morning. No fever reported. Blood sugar was 188 during call. Denies any shortness of breath, cough, LE edema/swelling, chest pain, dizziness/lightheadedness. Did take dramamine and feels "a little bit better". Lastseen in the office two days ago. RECOMMENDATION: Offered video visit but patient declined. Advised would send message to provider but may not have aresponse this evening. Advised if symptoms worsen that he should go to the ED for immediate evaluation. Will plan to call in the morning to re-evaluate. Dr. Ayers-please advise if any recommendations based on symptoms and history. Did advise if worseningsymptoms he should go to ED for evaluation. Thank you. Michelle Nash RN General Internal Medicine [place] [address] [facility] [place] [address] documented in this encounter Plan of Treatment Upcoming Encounters Date Type Specialty Care Team Description 06/19/2023 Office Visit Cardiology Demian Long DO [address] [place] [address] 06/24/2023 Office Visit Dermatology Loni Gallardo MD 200 [facility] [place] [address] 07/16/2023 Procedure Only Urology Frank Peraza MD [address] [place] [address] 08/08/2023 Imaging Radiology 08/30/2023 Office Visit Gastroenterology Lamar Tatum CRNP [address] [place] [address] 09/30/2023 Office Visit Hematology Oncology Jennifer Ramires MD [address] [facility] [place] [address] 06/11/2024 Office Visit Ophthalmology Cody Gonzlaez, DO [address] [facility] [address] [place] [phone] Health Maintenance Due Date Last Done Comments [...] Additional history exists CKD PHOS USE SMARTSET 04831 01/28/202401/03, 07/26/2022, 12/05/2021, Additional history exists DIABETES-FOOT EXAM 03/06/2024 03/06/2023, 0 01/03/2022, 03/02/2021, Additional history exists CKD HGB USE SMARTSET 60951 05/28/202405/28, 05/28/2023, 05/16/2023, Additional history exists COLONOSCOPY-EVERY [...] this encounter Medical Devices Implanted Type Area Bonderizer Device Identifier Shelf Expiration Date Model / Serial / Lot Clareon Iol Aspheric Hydrophobic Acrylic Iol Implanted:Qty: 1 on 04/23/2023 by Cody Gonzalez DO at OR [facility] Lens Left: Eye 11/12/2025 CNA0T0 / [id number] / Viatorr Tips Endoprosthesis 8-10 Mm X 8cm / 2cm Implanted:Qty: 1 on 10/07/2020 by Go Alvarado MD at [facility] Right: Abdomen 03/03/2023 [id number] / / [id number] Description:Viatorr TIPS End oprosthesis 8-10 mm x 8cm / 2cm, Manufactored by [employer] Syr Pf 2ml Embospheres 100-300 - [id number] Implanted:Qty: 1 on 04/18/2021 by Kevin Lim DO at OR [facility] Left: Abdomen [employer] [id number] 11/25/2023 S220GH / / [id number] -5 Syr Pf 2ml Embospheres 100-300 - [id number] Implanted:Qty: 1 on 03/28/2022 at [facility] [employer] [id number] 08/31/2024 S220GH / / [id number] -5 Clareon Iol Aspheric Hydrophobic Acrylic Iol Implanted:Qty: 1 on 04/02/2023 by Cody Gonzalez DO at OR [facility] Right: Eye JAZMIN 11/12/2025 CNA0T0 / [id number] / documented as of this encounter Visit Diagnoses Diagnosis Nausea without vomiting- Primary Liver cell carcinoma (HCC) Malignant neoplasm of liver, primary GAVE (gastric antral vascular ectasia) Angiodysplasia of stomach and duodenum (without mention of hemorrhage) documented in this encounter Advance Directives Documents on File Type Date Recorded 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 No Full Code 07/22/2014 9:56 PM 07/24/2014 8:18 PM This order reflects the patients wishes and were consensually agreed upon. Question Answer Comments Discussion of Advance Directives occurred with: Patient Does the patient have a Living Will? No Does the patient have Health Care Power of Brazer Assembler? No Care Teams Tire Mold Tester Relationship Specialty Start Date End Date Francisco Cisse MD [address] [place] [address] PCP - General Internal Medicine 09/04/21 documented as of this encounter
--- OUTSIDE RECORDS SUMMARY | 2023-11-26 12:48 | External Medical Summary | Summary of Care ---
Author Name Unknown Organization [facility] Address [address] [facility] [place] [address] Phone [phone] Care Team Providers Care Digital Director Name Role Phone Francisco Cisse MD Primary Care Provider + Reason for Visit * Reason Onset Date Comments Medication Refill 06/10/2023 Encounter Details Date Type Department Care Team Description 06/10/2023 Refill General Internal Medicine [facility] [place] [address] [facility] [place] [address] Francisco Cisse MD [address] [facility] [place] [address] Cirrhosis of liver with ascites, unspecified hepatic cirrhosis type (HCC) Allergies No known active allergiesdocumented as of this encounter (statuses as of 06/11/2023) Medications Medication Sig Dispensed Refills Start Date [...] the morning. 60 Tablet 2 06/11/2023 Active Furosemide 20 MG Oral Tablet (Lasix)Indications [...] as of this encounter (statuses as of 06/11/2023) Active Problems Problem Noted Date Restrictive ventilatory [...] as of this encounter (statuses as of 06/11/2023) Resolved Problems Problem Noted Date Resolved Date [...] as of this encounter (statuses as of 06/11/2023) Immunizations Name Administration Dates Next Due COVID-19 mRNA, LNP-s, No Pre serve, 2-Dose Series ([employer]) 03/08/2021,02/15/2021 HepA Inact/HepB Recomb>=18yrs old 12/04/2019,04/2019,05/20/2019 11/19/2019 [...] had his shot last month at [facility] [...] encounter Miscellaneous Notes * Telephone Encounter - Maxi Alfredo PA-C - 06/11/2023 10:58 AM EDTSigned Prescriptions: Disp Refills Furosemide 20 MG Oral Tablet (Lasix) 60 Tab*2 Sig: Take 2 Tablets by mouth in the morning. Authorizing Provider: MAXI ALFREDO * Telephone Encounter - Sherlyn Lees LPN - 06/11/2023 8:22 AM EDTPending Prescriptions: Disp Refills Furosemide 20 MG Oral Tablet (Lasix) 60 Tab*2 Sig: Take 2 Tablets by mouth in the morning. * Telephone Encounter - Sherlyn Lees LPN - 06/11/2023 8:21 AM EDT Provider to address: Dr Cisse Reason for Call: Medication Refill Contact: My Tamra Contact Type: Medication Outcome: Pending Prescriptions: Disp Refills Furosemide 20 MG Oral Tablet (Lasix) 60 Tab*2 Sig: Take 2 Tablets by mouth in the morning. Last Visit: 06/10/2023 (in office), Visit date not found (telemedicine) Next Visit: Visit date not found Last date the medication was ordered: 04/26/23 Patient Active Problem List Diagnosis Code Allergic [...] POCT - [facility] 5.6 03/02/2021 11:54 AM Total Time including non face to face (minutes): 5 documented in this encounter Plan of Treatment Upcoming Encounters Date Type Specialty Care Team Description 06/19/2023 Office Visit Cardiology Demian Long DO [address] [place] [address] 06/24/2023 Office Visit Dermatology Loni Gallardo MD 200 [place] [address] 07/16/2023 Procedure Only Urology Frank Peraza MD [address] [place] [address] 08/08/2023 Imaging Radiology 08/30/2023 Office Visit Gastroenterology Lamar Tatum CRNP [address] [place] [address] 09/30/2023 Office Visit Hematology Oncology Jennifer Ramires MD 200 [place] [address] 06/11/2024 Office Visit Ophthalmology Cody Gonzalez DO [address] [place] [address] Health Maintenance Due Date Last Done Comments [...] Additional history exists CKD PHOS USE SMARTSET 71015 01/28/202401/03, 07/26/2022, 12/05/2021, Additional history exists DIABETES-FOOT EXAM 03/06/2024 03/06/2023, 0 01/03/2022, 03/02/2021, Additional history exists CKD HGB USE SMARTSET 93534 05/28/202405/28, 05/28/2023, 05/16/2023, Additional history exists COLONOSCOPY-EVERY [...] this encounter Medical Devices Implanted Type Area Manager Clinical Informatics Device Identifier Shelf Expiration Date Model / Serial / Lot Clareon Iol Aspheric Hydrophobic Acrylic Iol Implanted:Qty: 1 on 04/23/2023 by Cody Gonzalez, DO at OR [facility] Lens Left: Eye 11/12/2025 CNA0T0 / [id number] / Viatorr Tips Endoprosthesis 8-10 Mm X 8cm / 2cm Implanted:Qty: 1 on 10/07/2020 by Go Alvarado MD at [facility] Right: Abdomen 03/03/2023 [id number] / / [id number] Description:Viatorr TIPS End oprosthesis 8-10 mm x 8cm / 2cm, Manufactored by [employer] Syr Pf 2ml Embospheres 100-300 - [id number] Implanted:Qty: 1 on 04/18/2021 by Kevin Lim DO at OR [facility] Left: Abdomen [employer] [id number] 11/25/2023 S220GH / / [id number] -[id number] Syr Pf 2ml Embospheres 100-300 - [id number] Implanted:Qty: 1 on 03/28/2022 at [facility] [employer] [id number] 08/31/2024 S220GH / / [id number] -[id number] Clareon Iol Aspheric Hydrophobic Acrylic Iol Implanted:Qty: 1 on 04/02/2023 by Cody Gonzalez DO at OR [facility] Right: Eye JAZMIN 11/12/2025 CNA0T0 / [id number] / documented as of this encounter Visit Diagnoses Diagnosis Cirrhosis of liver with ascites, unspecified hepatic cirrhosis type (HCC) documented in this encounter Advance Directives Documents on File Type Date Recorded Patient Conference Director Expl anation Advance Directives and Living Will 12/11/2022 ADVANCE DIRECTIVE / LIVING WILL LIVING WILL Power of Scientific Specialist 12/11/2022 POWER OF A TTORNEY Latest [...] the patient have Health Care Power of Scientific Specialist? No Full Code 07/22/2014 9:56 PM 07/24/2014 8:18 PM This order reflects the patients wishes and were consensually agreed upon. Question Answer Comments Discussion of Advance Directives occurred with: Patient Does the patient have a Living Will? No Does the patient have Health Care Power of Scientific Specialist? No Care Teams Digital Director Relationship Specialty Start Date End Date Francisco Cisse MD [address] [place] [id number] PCP - General Internal Medicine 09/04/21 documented as of this encounter
--- OUTSIDE RECORDS SUMMARY | 2023-11-26 12:48 | External Medical Summary | Summary of Care ---
Author Name Unknown Organization [facility] Address [address] [facility] [place] [address] Phone [phone] Care Team Providers Care Sales Administrator Name Role Phone Francisco Cisse MD Primary Care Provider + Reason for Visit * Reason Onset Date Comments Appointment 05/28/2023 Encounter Details Date Type Department Care Team Description 05/28/2023 Telephone [facility] [place] [address] Lamar Tatum CRNP [address] [place] [address] Appointment Allergies No known active allergiesdocumented as of this encounter (statuses as of 06/06/2023) Medications Medication Sig Dispensed Refills Start Date [...] as of this encounter (statuses as of 06/06/2023) Active Problems Problem Noted Date Restrictive ventilatory [...] as of this encounter (statuses as of 06/06/2023) Resolved Problems Problem Noted Date Resolved Date [...] as of this encounter (statuses as of 06/06/2023) Immunizations Name Administration Dates Next Due COVID-19 mRNA, LNP-s, No Pre serve, 2-Dose Series ([employer]) 03/08/2021,02/15/2021 HepA Inact/HepB Recomb>=18yrs old 12/04/2019,04/2019,05/20/2019 11/19/2019 [...] already had his shot last month at [facility] [...] get him scheduled for an EGD @ [facility] from his check out today on 05.28.23 His phone went straight to voicemail and his voicemail has not been setup yet. DX: GAVE (gastric antral vascular ectasia) [K31.819] Per pete. documented in this encounter Plan of Treatment Upcoming Encounters Date Type Specialty Care Team Description 06/10/2023 Office Visit Internal Medicine Joaquin Snider PA-C 200 [facility] [place] [address] 06/19/2023 Office Visit Cardiology Demian Long, [address] [place] [address] 06/24/2023 Office Visit Dermatology Loni Gallardo MD [address] [place] [address] 07/16/2023 Procedure Only Urology Frank Peraza MD [address] [place] [address] 08/08/2023 Imaging Radiology 08/30/2023 Office Visit Gastroenterology Lamar Tatum CRNP [address] [place] [address] 09/30/2023 Office Visit Hematology Oncology Jennifer Ramires MD [address] [place] [address] 06/11/2024 Office Visit Ophthalmology Cody Gonzalez, DO [address] [place] [address] Health Maintenance Due Date Last Done Comments [...] Additional history exists CKD PHOS USE SMARTSET 10816 01/28/202401/03, 07/26/2022, 12/05/2021, Additional history exists DIABETES-FOOT EXAM 03/06/2024 03/06/2023, 0 01/03/2022, 03/02/2021, Additional history exists CKD HGB USE SMARTSET 88595 05/28/202405/28, 05/28/2023, 05/16/2023, Additional history exists COLONOSCOPY-EVERY [...] this encounter Medical Devices Implanted Type Area Lobby Attendant Device Identifier Shelf Expiration Date Model / Serial / Lot Clareon Iol Aspheric Hydrophobic Acrylic Iol Implanted:Qty: 1 on 04/23/2023 by Cody Gonzalez DO at OR [facility] Lens Left: Eye 11/12/2025 CNA0T0 / [id number] / Viatorr Tips Endoprosthesis 8-10 Mm X 8cm / 2cm Implanted:Qty: 1 on 10/07/2020 by Go Alvarado MD at [facility] Right: Abdomen 03/03/2023 [id number] / / [id number] Description:Viatorr TIPS End oprosthesis 8-10 mm x 8cm / 2cm, Manufactored by [employer] Syr Pf 2ml Embospheres 100-300 - [id number] Implanted:Qty: 1 on 04/18/2021 by Kevin Lim DO at OR [facility] Left: Abdomen [employer] [id number] 11/25/2023 S220GH / / [id number] -[id number] Syr Pf 2ml Embospheres 100-300 - [id number] Implanted:Qty: 1 on 03/28/2022 at [facility] [employer] [id number] 08/31/2024 S220GH / / [id number] -5 Clareon Iol Aspheric Hydrophobic Acrylic Iol Implanted:Qty: 1 on 04/02/2023 by Cody Gonzalez DO at [facility] Right: Eye JAZMIN 11/12/2025 CNA0T0 / [id number] / documented as of this encounter Advance Directives Documents on File Type Date Recorded Patient Service Engineer Expl anation Advance Directives and Living Will 12/11/2022 ADVANCE DIRECTIVE / LIVING WILL LIVING WILL Power of Medical Imaging Technician 12/11/2022 POWER OF A TTORNEY Latest [...] patient have Health Care Power of Medical Imaging Technician? No Full Code 07/22/2014 9:56 PM 07/24/2014 8:18 PM This order reflects the patients wishes and were consensually agreed upon. Question Answer Comments Discussion of Advance Directives occurred with: Patient Does the patient have a Living Will? No Does the patient have Health Care Power of Medical Imaging Technician? No Care Teams Sales Administrator Relationship Specialty Start Date End Date Francisco Cisse MD [address] [place] [address], [place] [address] PCP - General Internal Medicine 09/04/21 documented as of this encounter
--- OUTSIDE RECORDS SUMMARY | 2023-11-26 12:48 | External Medical Summary | Summary of Care ---
Author Name Unknown Organization [facility] Address [address] [facility] [address] Phone [phone] Care Team Providers Care State Highway Police Officer Name Role Phone Francisco Cisse MD Primary Care Provider + Reason for Visit * Reason Comments Follow Up 3mo return Encounter Details Date Type Department Care Team Description 06/10/2023 Office Visit General Internal Medicine [facility] [place] [address] [facility] [place] [address] Joaquin Snider PA-C 200 [facility] [place] [id number] Psoriasis*; Cirrhosis of liver with ascites, unspecified hepatic cirrhosis type (HCC); Portal vein thrombosis; Liver cell carcinoma (HCC); GAVE (gastric antral vascular ectasia); Esophageal varices without bleeding, unspecified esophageal varices type (HCC); Lung disease, restrictive; Type 2 diabetes mellitus with stage 3a chronic kidney disease, with long-term current use of insulin (HCC); Type 2 diabetes mellitus with hemoglobin A1c goal of less than 7.0% (HCC); Dyslipidemia, goal LDL below 100; Chronic kidney disease, stage 3a (HCC); Acquired thrombocytopenia (HCC); Anemia due to stage 3a chronic kidney disease (HCC); Iron deficiency anemia, unspecified iron deficiency anemia type; S/P TIPS (transjugular intrahepatic portosystemic shunt); Pancytopenia (HCC); History of prostate cancer Allergies No known active allergiesdocumented as of this encounter (statuses as of 06/10/2023) Medications Medication Sig Dispensed Refills Start Date [...] 04/08/2023 Active Furosemide 20 MG Oral Tablet (Lasix)Indications:C [...] of less than 7.0% ([facility]) Inject 20 Units under the skin daily with dinner. 15 mL 3 06/05/2023 Active Hospital, Clinic, or Other Facility Administered [...] as of this encounter (statuses as of 06/10/2023) Active Problems Problem Noted Date Restrictive ventilatory defect Lung disease, restrictive 04/05/2023 [...] as of this encounter (statuses as of 06/10/2023) Resolved Problems Problem Noted Date Resolved Date [...] as of this encounter (statuses as of 06/10/2023) Immunizations Name Administration Dates Next Due COVID-19 mRNA, LNP-s, No Pre serve, 2-Dose Series ([employer]) 03/08/2021,02/15/2021 HepA Inact/HepB Recomb>=18yrs old 12/04/2019,04/2019,05/20/2019 [...] had his shot last month at [facility] [employer] [...] Sign Reading Time Taken Comments Blood Pressure 106/50 06/10/2023 3:39 PM EDT Pulse 60 06/10/2023 3:39 PM EDT Temperature 36.8 C (98.2 F) 06/10/2023 3:39 PM ED T Respiratory Rate - - Oxygen Saturation 99% 06/10/2023 3:39 PM EDT Inhaled Oxygen Concentration - - Weight 79.5 kg (175 lb 4.8 oz) 06/10/2023 3:39 P M EDT Height - - Body Mass Index 25.88 04/23/2023 9:02 AM EDT documented in this encounter Functional [...] No 10/07/2020 documented as of this encounter Nursing Notes * Corina Prado LPN - 06/10/2023 3:38 PM EDT Chief Complaint Patient presents with Follow Up 3mo return documented in this encounter Plan of Treatment Upcoming Encounters Date Type Specialty Care Team Description 06/19/2023 Office Visit Cardiology Demian Long DO [address] [place] [address] 06/24/2023 Office Visit Dermatology Loni Gallardo MD [address] [place], [place] [address] [address] 07/16/2023 Procedure Only Urology Frakn Peraza MD [address] [place] [address] 08/08/2023 Imaging Radiology 08/30/2023 Office Visit Gastroenterology Lamar Tatum CRNP [address] [place] [address] 09/30/2023 Office Visit Hematology Oncology Jennifer [facility]ires MD [address] [facility] [address] 06/11/2024 Office Visit Ophthalmology Cody Gonzalez [...] Additional history exists CKD PHOS USE SMARTSET 94187 01/28/202401/03, 07/26/2022, 12/05/2021, Additional history exists DIABETES-FOOT EXAM 03/06/2024 03/06/2023, 0 01/03/2022, 03/02/2021, Additional history exists CKD HGB USE SMARTSET 74842 05/28/202405/28, 05/28/2023, 05/16/2023, Additional history exists COLONOSCOPY-EVERY [...] this encounter Medical Devices Implanted Type Area Waste Removalist Device Identifier Shelf Expiration Date Model / Serial / Lot Clareon Iol Aspheric Hydrophobic Acrylic Iol Implanted:Qty: 1 on 04/23/2023 by Cody Gonzalez DO at OR [facility] Lens Left: Eye 11/12/2025 CNA0T0 / [id number] 136 / Viatorr Tips Endoprosthesis 8-10 Mm X 8cm / 2cm Implanted:Qty: 1 on 10/07/2020 by Go Alvarado MD at [facility] Right: Abdomen 03/03/2023 [id number] / / [id number] Description:Viatorr TIPS End oprosthesis 8-10 mm x 8cm / 2cm, Manufactored by [employer] Syr Pf 2ml Embospheres 100-300 - [id number] Implanted:Qty: 1 on 04/18/2021 by Kevin Lim DO at OR [facility] Left: Abdomen [employer] [id number] 11/25/2023 S220GH / / [id number] -[id number] Syr Pf 2ml Embospheres 100-300 - [id number] Implanted:Qty: 1 on 03/28/2022 at [facility] [employer] [id number] 08/31/2024 S220GH / / [id number] -5 Clareon Iol Aspheric Hydrophobic Acrylic Iol Implanted:Qty: 1 on 04/02/2023 by Cody Gonzalez DO at OR [facility] Right: Eye JAZMIN 11/12/2025 CNA0T0 / [id number] / documented as of this encounter Visit Diagnoses Diagnosis Psoriasis- Primary Other psoriasis Cirrhosis of liver with ascites, unspecified hepatic cirrhosis type (HCC) Portal vein thrombosis Liver cell carcinoma (HCC) Malignant neoplasm of liver, primary GAVE (gastric antral vascular ectasia) Angiodysplasia of stomach and duodenum (without mention of hemorrhage) Esophageal varices without bleeding, unspecified esophageal varices type (HCC) Lung disease, restrictive Other diseases of lung, not elsewhere classified Type 2 diabetes mellitus with stage 3a chronic kidney disease, with long-term current use of insulin (HCC) Type 2 diabetes mellitus with hemoglobin A1c goal of less than 7.0% (HCC) Dyslipidemia, goal LDL below 100 Other and unspecified hyperlipidemia Chronic kidney disease, stage 3a (HCC) Acquired thrombocytopenia (HCC) Other secondary thrombocytopenia Anemia due to stage 3a chronic kidney disease (HCC) Iron deficiency anemia, unspecified iron deficiency anemia type S/P TIPS (transjugular intrahepatic portosystemic shunt) Other postprocedural status Pancytopenia (HCC) Other pancytopenia History of prostate cancer Personal history of malignant neoplasm of prostate documented in this encounter Advance Directives Documents on File Type Date Recorded Patient Control Cabinet Assembler Expl anation Advance Directives and Living Will 12/11/2022 ADVANCE DIRECTIVE / LIVING WILL LIVING WILL Power of Cloth Tester Quality 12/11/2022 POWER OF A TTORNEY Latest [...] the patient have Health Care Power of Cloth Tester Quality? No Full Code 07/22/2014 9:56 PM 07/24/2014 8:18 PM This order reflects the patients wishes and were consensually agreed upon. Question Answer Comments Discussion of Advance Directives occurred with: Patient Does the patient have a Living Will? No Does the patient have Health Care Power of Cloth Tester Quality? No Care Teams State Highway Police Officer Relationship Specialty Start Date End Date Francisco Cisse MD [address] [place] [address] PCP - General Internal Medicine 09/04/21 documented as of this encounter
--- OUTSIDE RECORDS SUMMARY | 2023-11-26 12:48 | External Medical Summary | Summary of Care ---
Author Name Unknown Organization [facility] Address [address] [facility] [address] Phone [phone] Care Team Providers Care Mine Boss Name Role Phone Francisco Cisse MD Primary Care Provider + Reason for Visit * Reason Comments case management Encounter Details Date Type Department Care Team Description 05/30/2023 Veneer Stock GraderLogger All Round [facility] [place] [facility] [address] Michelle Nash RN Medical home patient encounter* Allergies No [...] goal of less than 7.0% ([facility]) Use to test blood sugars 3 [...] mRNA, LNP-s, No Pre serve, 2-Dose Series ([employer]) 03/08/2021,02/15/2021 HepA Inact/HepB Recomb>=18yrs old 12/04/2019,04/2019,05/20/2019 11/19/2019 [...] already had his shot last month at [facility] and [...] Progress Notes * Michelle Nash RN - 05/30/2023 2:05 PM EDT SITUATION: CCM Tier 2 f/u ANDREW BACKGROUND: [facility] 05/17-05/20 - AMS hepatic encephalopathy ASSESSMENT: Spoke with patient and he is feeling "pretty good today". Has had two bm's today. No n/v/d/c reported. Denies any abdominal pain or distention. Saw GI on 05/28-MRI ordered, repeat EGD recommended. No medication changes. Saw Hem/Onc yesterday-hgb was 10.2. Reports his energy level has improved. FBS was 181 today. Last HgA1C was 5.2. Using a Wang monitor now. Denies any LE edema/swelling, chest pain, shortness of breath. Reviewed red flags: recurring constipation, worsening edema/swelling, worsening abdominal pain. RECOMMENDATION: Advised to continue to monitor for worsening symptoms and report to PCP. Will plan to follow up in one week. Michelle Nash RN General Internal Medicine [facility] [place] 200 [facility] [place] [address] documented in this encounter Plan of Treatment Upcoming Encounters Date Type Specialty Care Team Description 05/30/2023 Office Visit Ophthalmology Cody Gonzalez DO [address] [place] [address] 06/10/2023 Office Visit Internal Medicine Joaquin Snider PA-C 200 [facility] [place] [address] 06/24/2023 Office Visit Dermatology Loni Gallardo MD 200 [facility] [place] [address] 07/16/2023 Procedure Only Urology Frank Peraza MD [address] [place] [address] 08/08/2023 Imaging Radiology 08/30/2023 Office Visit Gastroenterology Lamar Tatum CRNP [address] [place] [address] 09/30/2023 Office Visit Hematology Oncology Jennifer Ramires MD 200 [facility] [id number] Health Maintenance Due Date Last Done Comments [...] Additional history exists CKD PHOS USE SMARTSET 51236 01/28/202401/03, 07/26/2022, 12/05/2021, Additional history exists DIABETES-FOOT EXAM 03/06/2024 03/06/2023, 0 01/03/2022, 03/02/2021, Additional history exists CKD HGB USE SMARTSET 39061 05/28/202405/28, 05/28/2023, 05/16/2023, Additional history exists COLONOSCOPY-EVERY [...] this encounter Medical Devices Implanted Type Area Programming Engineer Device Identifier Shelf Expiration Date Model / Serial / Lot Clareon Iol Aspheric Hydrophobic Acrylic Iol Implanted:Qty: 1 on 04/23/2023 by Cody Gonzalez DO at OR [facility] Lens Left: Eye 11/12/2025 CNA0T0 / [id number] / Viatorr Tips Endoprosthesis 8-10 Mm X 8cm / 2cm Implanted:Qty: 1 on 10/07/2020 by Go Alvarado MD at [facility] Right: Abdomen 03/03/2023 [id number] / / [id number] Description:Viatorr TIPS End oprosthesis 8-10 mm x 8cm / 2cm, Manufactored by [employer] Syr Pf 2ml Embospheres 100-300 - [id number] Implanted:Qty: 1 on 04/18/2021 by Kevin Lim DO at OR [facility] Left: Abdomen [employer] [id number] 11/25/2023 S220GH / / [id number] -[id number] Syr Pf 2ml Embospheres 100-300 - [id number] Implanted:Qty: 1 on 03/28/2022 at [facility] [employer] [id number] 08/31/2024 S220GH / / [id number] -5 Clareon Iol Aspheric Hydrophobic Acrylic Iol Implanted:Qty: 1 on 04/02/2023 by Cody Gonzalez DO at OR [facility] Right: Eye JAZMIN 11/12/2025 CNA0T0 / [id number] / documented as of this encounter Visit Diagnoses Diagnosis Pseudophakia- Primary Lens replaced by other means Medical home patient encounter- Primary Other specified examination documented in this encounter Advance Directives Documents on File Type Date Recorded Patient Career Development Specialist Expl anation Advance Directives and Living Will 12/11/2022 ADVANCE DIRECTIVE / LIVING WILL LIVING WILL Power of Ore Storage Drier 12/11/2022 POWER OF A TTORNEY Latest Code [...] the patient have Health Care Power of Ore Storage Drier? No Full Code 07/22/2014 9:56 PM 07/24/2014 8:18 PM This order reflects the patients wishes and were consensually agreed upon. Question Answer Comments Discussion of Advance Directives occurred with: Patient Does the patient have a Living Will? No Does the patient have Health Care Power of Ore Storage Drier? No Care Teams Mine Boss Relationship Specialty Start Date End Date Francisco Cisse MD [address] [place] [address], [place] [address] PCP - General Internal Medicine 09/04/21 documented as of this encounter
--- OUTSIDE RECORDS SUMMARY | 2023-11-26 12:48 | External Medical Summary | Summary of Care ---
Author Name Unknown Organization [facility] Address [address] [facility] [place] [address] Phone [phone] Care Team Providers Care Lead Technical Architect Name Role Phone Francisco Cisse MD Primary Care Provider + Reason for Visit * Reason Onset Date Comments Appointment 05/28/2023 Encounter Details Date Type Department Care Team Description 05/28/2023 Telephone [facility]enterology, [facility] [place] [address] Lamar Tatum CRNP [address] [place] [address] Appointment Allergies No known active allergiesdocumented as [...] mRNA, LNP-s, No Pre serve, 2-Dose Series ([employer]) 03/08/2021,02/15/2021 HepA Inact/HepB Recomb>=18yrs old 12/04/2019,04/2019,05/20/2019 [...] ESTELLE Mcneal - 06/06/2023 12:47 PM EDT LMOM for pt to call back to schedule * Telephone Encounter - Mikki Ashley - 05/28/2023 3:22 PM EDT Tried calling patient to get him scheduled for an EGD @ [facility] from his check out today on 05.28.23 His phone went straight to voicemail and his voicemail has not been setup yet. DX: GAVE (gastric antral vascular ectasia) [K31.819] Per pete. documented in this encounter Plan of Treatment Upcoming Encounters Date Type Specialty Care Team Description 06/10/2023 Office Visit Internal Medicine Joaquin Snider PA-C 200 [facility] [place] [address] 06/19/2023 Office Visit Cardiology Demian Long, [address] [place] [address] 06/24/2023 Office Visit Dermatology Loni Gallardo MD 200 [facility] [place] [address] 07/16/2023 Procedure Only Urology Frank Peraza MD [address] [place] [address] [place] [address] 08/08/2023 Imaging Radiology 08/30/2023 Office Visit Gastroenterology Lamar Tatum CRNP [address] [place] [address] 09/30/2023 Office Visit Hematology Oncology Jennifer Ramires MD 200 [facility] [place] [address] 06/11/2024 Office Visit Ophthalmology Cody Gonzalez, DO [address] [place] [address] Health Maintenance Due Date Last Done Comments [...] Additional history exists CKD PHOS USE SMARTSET 80594 01/28/202401/03, 07/26/2022, 12/05/2021, Additional history exists DIABETES-FOOT EXAM 03/06/2024 03/06/2023, 0 01/03/2022, 03/02/2021, Additional history exists CKD HGB USE SMARTSET 09082 05/28/202405/28, 05/28/2023, 05/16/2023, Additional history exists COLONOSCOPY-EVERY [...] this encounter Medical Devices Implanted Type Area Asbestos Hazard Abatement Worker Device Identifier Shelf Expiration Date Model / Serial / Lot Clareon Iol Aspheric Hydrophobic Acrylic Iol Implanted:Qty: 1 on 04/23/2023 by Cody Gonzalez DO at OR [facility] Lens Left: Eye 11/12/2025 CNA0T0 / [id number] / Viatorr Tips Endoprosthesis 8-10 Mm X 8cm / 2cm Implanted:Qty: 1 on 10/07/2020 by Go Alvarado MD at [facility] Right: Abdomen 03/03/2023 [id number] / / [id number] Description:Viatorr TIPS End oprosthesis 8-10 mm x 8cm / 2cm, Manufactored by [employer] Syr Pf 2ml Embospheres 100-300 - [id number] Implanted:Qty: 1 on 04/18/2021 by Kevin Lim DO at OR [facility] Left: Abdomen [employer] [id number] 11/25/2023 S220GH / / [id number] -[id number] Syr Pf 2ml Embospheres 100-300 - [id number] Implanted:Qty: 1 on 03/28/2022 at [facility] [employer] [id number] 08/31/2024 S220GH / / [id number] -[id number] Clareon Iol Aspheric Hydrophobic Acrylic Iol Implanted:Qty: 1 on 04/02/2023 by Cody Gonzalez DO at [facility] Right: Eye JAZMIN 11/12/2025 CNA0T0 / [id number] / documented as of this encounter Advance Directives Documents on File Type Date Recorded 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 No Full Code 07/22/2014 9:56 PM 07/24/2014 8:18 PM This order reflects the patients wishes and were consensually agreed upon. Question Answer Comments Discussion of Advance Directives occurred with: Patient Does the patient have a Living Will? No Does the patient have Health Care Power of Core Winding Operator? No Care Teams Lead Technical Architect Relationship Specialty Start Date End Date Francisco Cisse MD [address] [place] [id number] PCP - General Internal Medicine 09/04/21 documented as of this encounter
--- OUTSIDE RECORDS SUMMARY | 2023-11-26 12:48 | External Medical Summary | Summary of Care ---
Author Name Unknown Organization [facility] [address] [facility] [address] Phone [phone] Care Team Providers Care Kiln Furniture Caster Name Role Phone Francisco Cisse MD Primary Care Provider + Reason for Visit * Reason Comments case management Encounter Details Date Type Department Care Team Description 06/10/2023 Barge LoaderDirector Business Development [facility] [facility] [address] Michelle Nash RN Medical home patient encounter* [...] mRNA, LNP-s, No Pre serve, 2-Dose Series ([employer]) 03/08/2021,02/15/2021 HepA Inact/HepB Recomb>=18yrs old 12/04/2019,04/2019,05/20/2019 11/19/2019 [...] already had his shot last month at [facility] and Mckinley Cobian [...] Progress Notes * Michelle Nash RN - 06/10/2023 11:20 AM EDT SITUATION: CCM Tier 2 f/u ANDREW BACKGROUND: [facility] 05/17-05/20 - AMS hepatic encephalopathy ASSESSMENT: Reports he is doing "real good" today. Did have episode of mild nausea last evening but used gingerlozenges and resolved. Denies any abdominal pain, abdominal distention, diarrhea, constipation, fever, vomiting, confusion. Taking lactulose as prescribed-has not had yet today. FBS was 249 this morning. Scheduled for follow up with Joaquin Snider PA-C today at 4:00 pm. Reviewed red flags: recurring constipation, worsening abdominal pain, fever/chills. RECOMMENDATION: Advised to continue to monitor symptoms and report any changes to PCP. Will plan to follow up within one week. Michelle Nash RN General Internal Medicine [facility] Pattie [address] [place] [address] documented in this encounter Plan of Treatment Upcoming Encounters Date Type Specialty Care Team Description 06/10/2023 Office Visit Internal Medicine Joaquin Snider PA-C [address] [facility] [place] [address] 06/19/2023 Office Visit Cardiology Demian Long DO [address] [place] [address] 06/24/2023 Office Visit Dermatology Loni Gallardo MD [address] [facility] [place] [address] 07/16/2023 Procedure Only Urology Frank Peraza MD [address] [place] [address] [place] [address] 08/08/2023 Imaging Radiology 08/30/2023 Office Visit Gastroenterology Laamr Tatum CRNP [address] [place] [address] 09/30/2023 Office Visit Hematology Oncology Jennifer Ramires MD [address] [place] [address] 06/11/2024 Office Visit Ophthalmology Cody Gonzalez, [address] [facility] [place] [id number] Health Maintenance Due Date Last Done Comments [...] Additional history exists CKD PHOS USE SMARTSET 28482 01/28/202401/03, 07/26/2022, 12/05/2021, Additional history exists DIABETES-FOOT EXAM 03/06/2024 03/06/2023, 0 01/03/2022, 03/02/2021, Additional history exists CKD HGB USE SMARTSET 25903 05/28/202405/28, 05/28/2023, 05/16/2023, Additional history exists COLONOSCOPY-EVERY [...] this encounter Medical Devices Implanted Type Area Memorial Counselor Device Identifier Shelf Expiration Date Model / Serial / Lot Clareon Iol Aspheric Hydrophobic Acrylic Iol Implanted:Qty: 1 on 04/23/2023 by Cody Gonzalez DO at OR [facility] Lens Left: Eye 11/12/2025 CNA0T0 / [id number] / Viatorr Tips Endoprosthesis 8-10 Mm X 8cm / 2cm Implanted:Qty: 1 on 10/07/2020 by Go Alvarado MD at [facility] Right: Abdomen 03/03/2023 [id number] / / [id number] Description:Viatorr TIPS End oprosthesis 8-10 mm x 8cm / 2cm, Manufactored by [employer] Syr Pf 2ml Embospheres 100-300 - [id number] Implanted:Qty: 1 on 04/18/2021 by Kevin Lim DO at OR [facility] Left: Abdomen [employer] [id number] 11/25/2023 S220GH / / [id number] -5 Syr Pf 2ml Embospheres 100-300 - [id number] Implanted:Qty: 1 on 03/28/2022 at [facility] [employer] [id number] 08/31/2024 S220GH / / [id number] -5 Clareon Iol Aspheric Hydrophobic Acrylic Iol Implanted:Qty: 1 on 04/02/2023 by Cody Gonzalez DO at OR [facility] Right: Eye JAZMIN 11/12/2025 CNA0T0 / [id number] / documented as of this encounter Visit Diagnoses Diagnosis Medical home patient encounter- Primary Other specified examination documented in this encounter Advance Directives Documents on File Type Date Recorded 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 No Full Code 07/22/2014 9:56 PM 07/24/2014 8:18 PM This order reflects the patients wishes and were consensually agreed upon. Question Answer Comments Discussion of Advance Directives occurred with: Patient Does the patient have a Living Will? No Does the patient have Health Care Power of Shearing Machine Tender? No Care Teams Kiln Furniture Caster Relationship Specialty Start Date End Date Francisco Cisse MD [address] [place] [address], [place] [address] PCP - General Internal Medicine 09/04/21 documented as of this encounter
--- OUTSIDE RECORDS SUMMARY | 2023-11-26 12:48 | External Medical Summary | Summary of Care ---
Author Name Unknown Organization [facility] [address] [facility] [address] Phone [phone] Care Team Providers Care Printed Circuit Layout Taper Name Role Phone Francisco Cisse MD Primary Care Provider + Reason for Visit * Reason Onset Date Comments FYI 05/27/2023 Hospital d/c Encounter Details Date Type Department Care Team Description 05/27/2023 Telephone General Internal Medicine [facility] 200 [facility] [place] [address] Francisco Cisse MD 200 [place] [address] FYI (Hospital d/c) Allergies No known active allergiesdocumented as of this encounter (statuses as of 06/12/2023) Medications Medication Sig Dispensed Refills Start Date [...] the morning. 90 Tablet 1 04/08/2023 Active Hospital, Clinic, or Other Facility Administered [...] as of this encounter (statuses as of 06/12/2023) Active Problems Problem Noted Date Restrictive ventilatory [...] as of this encounter (statuses as of 06/12/2023) Resolved Problems Problem Noted Date Resolved Date [...] as of this encounter (statuses as of 06/12/2023) Immunizations Name Administration Dates Next Due COVID-19 [...] already had his shot last month at [facility] [...] Miscellaneous Notes * Telephone Encounter - ESTELLE Napier - 05/27/2023 8:48 AM EDT No Appointments Available Patient declined appointments?: No What Visit Type is needed? Hospital Discharge If Acute Visit Type is needed, were surrounding clinics offered to patient (Yes/No)? N/A Was patient offered appointments with other available providers (Yes/No)? N/A See Call Details? (Yes or No): No * Telephone Encounter - ESTELLE Shaw - 05/27/2023 8:38 AM EDT Patient called scheduled bus to doctor 11:45 when it takes 45 minutes. I spoke with clinic stated have patient call transportation to see if they can come sooner today if not call back to reschedule hospital discharge. documented in this encounter Plan of Treatment Upcoming Encounters Date Type Specialty Care Team Description 06/19/2023 Office Visit Cardiology Demian Long, DO [address] [place] [address] 06/24/2023 Office Visit [facility]ermatology [facility] [address] 07/16/2023 Procedure Only Urology Frank Peraza MD 27 [facility] [address] [place] [address] 08/08/2023 Imaging Radiology 08/30/2023 Office Visit Gastroenterology Lamar Tatum CRNP [address] [place] [address] 09/30/2023 Office Visit Hematology Oncology Jennifer [facility] [address] 06/11/2024 Office Visit Ophthalmology Cody Gonzalez DO [address] [place] [address] Health Maintenance Due Date Last Done Comments [...] Additional history exists CKD PHOS USE SMARTSET 00878 01/28/202401/03, 07/26/2022, 12/05/2021, Additional history exists DIABETES-FOOT EXAM 03/06/2024 03/06/2023, 0 01/03/2022, 03/02/2021, Additional history exists CKD HGB USE SMARTSET 62311 05/28/202405/28, 05/28/2023, 05/16/2023, Additional history exists COLONOSCOPY-EVERY [...] this encounter Medical Devices Implanted Type Area Mold Design Engineer Device Identifier Shelf Expiration Date Model / Serial / Lot Clareon Iol Aspheric Hydrophobic Acrylic Iol Implanted:Qty: 1 on 04/23/2023 by Cody Gonzalez DO at OR [facility] Lens Left: Eye 11/12/2025 CNA0T0 / [id number] / Viatorr Tips Endoprosthesis 8-10 Mm X 8cm / 2cm Implanted:Qty: 1 on 10/07/2020 by Go Alvarado MD at [facility] Right: Abdomen 03/03/2023 [id number] / / [id number] Description:Viatorr TIPS End oprosthesis 8-10 mm x 8cm / 2cm, Manufactored by [employer] [place] [employer] Syr Pf 2ml Embospheres 100-300 - [id number] Implanted:Qty: 1 on 04/18/2021 by Kevin Lim DO at OR [facility] Left: Abdomen [employer] [id number] 11/25/2023 S220GH / / [id number] -[id number] Syr Pf 2ml Embospheres 100-300 - [id number] Implanted:Qty: 1 on 03/28/2022 at [facility] [employer] [id number] 08/31/2024 S220GH / / [id number] -5 Clareon Iol Aspheric Hydrophobic Acrylic Iol Implanted:Qty: 1 on 04/02/2023 by Cody Gonzalez DO at OR [facility] Right: Eye JAZMIN 11/12/2025 CNA0T0 / [id number] / documented as of this encounter Advance Directives Documents on File Type Date Recorded 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 No Full Code 07/22/2014 9:56 PM 07/24/2014 8:18 PM This order reflects the patients wishes and were consensually agreed upon. Question Answer Comments Discussion of Advance Directives occurred with: Patient Does the patient have a Living Will? No Does the patient have Health Care Power of Aerosol Line Operator? No Care Teams Printed Circuit Layout Taper Relationship Specialty Start Date End Date Francisco Cisse MD [address] [place] [id number] PCP - General Internal Medicine 09/04/21 documented as of this encounter
[2023-11-26 13:55] LABS: Hematocrit (blood only) 20.8 % (42.0-52.0); Hemoglobin 6.6 g/dl (14.0-18.0); Mean Corpuscular Hemoglobin 31.9 pg (25.0-34.0); Mean Corpuscular Hgb Conc 31.7 g/dL (32.0-36.0); Mean Corpuscular Volume 100.5 fL (80.0-100.0); Mean Platelet Volume 12.7 fL (9.4-12.4); Platelet Count 95 K/uL (130-400); RDW Coefficient of Variation 17.4 % (11.5-14.5); RDW Standard Deviation 63.9 fL (36.4-46.3); Red Blood Count 2.07 M/uL (4.70-6.10); White Blood Count 3.16 K/ul (4.8-10.8)
[2023-11-26 14:00] LABS: Alanine Aminotransferase 20 U/L (7-52); Albumin Globulin Ratio 0.7 (0.9-2); Albumin Level 2.9 gm/dl (3.4-5.0); Alkaline Phosphatase 195 U/L (34-104); Anion Gap 6 (3-11); Aspartate Aminotransferase 41 U/L (13-39); Bilirubin,Total 2.3 mg/dl (0.2-1.0); Blood Urea Nitrogen 29 mg/dl (6-23); Calcium 8.4 mg/dl (8.6-10.3); Carbon Dioxide 21 mmol/L (21-32); Chloride 113 mmol/L (98-107); Est GFR (African American) 65.2 ml/min; Est GFR (Non-African American) 56.2 ml/min; Globulin 3.9 gm/dl (2.5-4.0); Glucose 223 mg/dl (70-99(Fasting)); Potassium 4.5 mmol/L (3.5-5.1); Sodium 140 mmol/L (136-145); Total Protein 6.8 gm/dl (6.0-8.3)
[2023-11-26 14:19] LABS: Troponin I High Sensitivity 507.8 pg/ml (0-20)
[2023-11-26 14:28] LABS: INR 1.1 (0.9-1.1); Partial Thromboplastin Ratio 0.8; Partial Thromboplastin Time 22 Seconds (21-31); Prothrombin Time 11.9 Seconds (9.0-12.0)
[2023-11-26] MEDS ORDERED: SODIUM CHLORIDE 0.9% 250 ML IV PRN (14:39)
--- NOTE | 2023-11-26 14:47 | Electrocardiogram Report ---
Test Reason : Blood Pressure : / mmHG Vent. Rate : 072 BPM Atrial Rate : 072 BPM P-R Int : 174 ms QRS Dur : 076 ms QT Int : 464 ms P-R-T Axes : 029 -15 078 degrees QTc Int : 508 ms Sinus rhythm with occasional Premature ventricular complexes and Fusion complexes Cannot rule out Anterior infarct , age undetermined Prolonged QT Abnormal ECG When compared with ECG of 21-SEP-2023 16:54, Fusion complexes are now Present Nonspecific T wave abnormality, worse in Lateral leads Confirmed by Jose Ramon Rizvi ([id number]) on 11/26/2023 2:47:30 PM Referred By: Francisco Cisse Confirmed By:Greyson Rizvi
--- NOTE | 2023-11-26 15:14 | CT Scan Report ---
CT SCAN OF THE ABDOMEN AND PELVIS WITHOUT IV CONTRAST CLINICAL HISTORY: Hematuria. Nausea and vomiting. COMPARISON STUDY: Abdominal CT dated 08/27/2023. TECHNIQUE: CT scan of the abdomen and pelvis is performed from the lung bases to the proximal femora. Images are reviewed in the axial, sagittal, and coronal planes. IV contrast was not administered for this examination. Note that the examination was performed and significantly suboptimal fashion witho ut oral and IV contrast. A dose lowering technique was utilized adhering to the principles of ALARA. CT DOSE: 1192.68 mGy.cm FINDINGS: Lung bases: The heart is mildly enlarged noting a small pericardial effusion. The coronary arteries a re densely calcified. There is degenerative attenuation of the cardiac blood pool as compared to the myocardium suggesting anemia. A small hiatal hernia is noted. The lung bases are clear noting depende nt atelectasis. Gynecomastia is noted. Liver: The unenhanced liver is cirrhotic in morphology and heterogeneous in attenuation. There is hyp ertrophy of the left lobe and nodularity of the hepatic surface contour. There is no intrahepatic matt iary ductal dilatation. A TIPS catheter is in place. Gallbladder: There are calcified gallstones without CT evidence of acute cholecystitis. Spleen: The spleen is enlarged, measuring 16.8 cm in length. Pancreas: A 2 cm cystic lesion in the pancreatic head with peripheral calcifications is again seen on image #125. The unenhanced pancreas is otherwise grossly unremarkable. Adrenal glands: Unremarkable. Kidneys: The unenhanced kidneys demonstrate mild cortical atrophy and are without hydronephrosis. The re are no renal calculi identified. There is no evidence of contour deforming renal mass lesion. Abdominal vasculature: The abdominal aorta is normal in course and caliber noting mild to moderate at herosclerotic calcification. Bowel: There is advanced colonic diverticulosis without CT evidence of acute diverticulitis. No bowel obstruction is seen. The appendix is normal as visualized. Peritoneum: There is a moderate volume of abdominopelvic ascites. There is ascitic fluid containing u mbilical hernia. No intracranial free air is seen. Lymphadenopathy: None. Pelvic viscera: The prostate gland is enlarged and heterogeneous noting median lobe hypertrophy. The bladder is distended, and the wall is mildly thickened/trabeculated indicating chronic outlet obstruc tion. Skeletal structures: The Skeletal structures are osteopenic. There is an acute appearing subacute sup erior endplate compression fracture of L2 with mild loss of height. This is new from 08/27/2023, and t here is only minimal retropulsion of fragments. There is subacute 3 column fracture of the T12 verteb ral body. This is unchanged from recent prior examinations. A chronic superior endplate compression d eformity of L1 is unchanged. These are new from No lytic or blastic lesions are seen. IMPRESSION: 1. Acute appearing superior endplate compression fracture of L2 with mild loss of height and minimall y retropulsed fragments. This is new from 08/27/2023. There is no significant central canal stenosis a t this level. 2. A subacute/healing 3 column fracture of T12 is unchanged in alignment. 3. Cirrhotic liver morphology. 4. A moderate volume of abdominopelvic ascites and splenomegaly indicate portal hypertension. 5. Cardiomegaly. 6. A TIPS catheter is in place. 7. Cholelithiasis. 8. Colonic diverticulosis without CT evidence of acute diverticulitis. 9. Additional findings as above. ACT 112: Negative or not required by law. Electronically signed by: Scott Yepez M.D. 11/26/2023 3:12 PM
[2023-11-26] MEDS ORDERED: ALUMINUM/MAGNESIUM SUSP 30 ML UDC PO PRN (15:42)
[2023-11-26] MEDS ORDERED: ACETAMINOPHEN 325 MG TAB PO PRN (15:42)
[2023-11-26] MEDS ORDERED: ONDANSETRON INJ 2 MG/ML 2 ML VIAL IV PRN (15:42)
[2023-11-26] MEDS ORDERED: MAGNESIUM HYDROXIDE SUSP 30 ML UDC PO PRN (15:42)
[2023-11-26] MEDS ORDERED: POLYETHYLENE (MIRALAX) 17 GM PACK PO PRN (15:42)
--- NOTE | 2023-11-26 15:52 | History & Physical Report ---
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 Hale is a 73 year old male that presented to the ED today with anterior chest pressure that has been occurring over the past 4-5 days that goes away at rest. He has persistent anemia, lightheadedness, and weakness. Reports chest discomfort and palpitations that is 'on and off'. He reports noticing hematuria and hematochezia that are both intermittent. Reports having 2-3 bowel movements typically. States urine is cranberry colored. Denies passing any clots, mild discomfort in the bladder area. No back pain. No fever or chills. No nausea or vomiting. Patient has a very complex medical history that includes: H/O Hepatocellular Carcinoma S/P IR embolization/portal vein thrombus, H/O FOFANA Cirrhosis S/P TIPS, prostate CA s/p radiation 2020, IDDM2, CKD, psoriasis, and depression. In the ED, WBC 3.16, hemoglobin 6.6, platelet 95. Initial troponin 507.8 likely related to ischemic demand rather than ACS. Pt laying in his hospital bed in no apparent distress. He is able to converse and answer questions appropriately. Complex individual with hematuria suspected to be radiation cystitis. With Hgb < 7.0; will transfuse 1 UPRBC and trend H/H Q6 hours. Will administer Lasix after blood transfusion, trend Troponin level, check ammonia level, and consult Urology. With increasing ascites, will order diagnostic/therapeutic paracentesis with GI consult pending culture results. Radiation cystitis: Anemia: Prostate Cancer: acute hematuria x 4-5 days Hgb 6.6; chronic anemia; recent colonoscopy/endoscopy;no rectal bleeding Administer 1 UPRBC in ED followed by Lasix 40 mg IV. 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 Cisse Code Status: Full Code VTE Prophylaxis: Teds and SCDs for now I spent a total of 87 minutes coordinating, documenting, and providing care for this patient excluding time spent in the performance of separately billed services. All of the aforementioned completed while collaborating with the assigned attending physician for a full treatment plan. Please see their adde ndum for further details. History of Present Illness Chief Complaint: hematuria Primary Care Provider: Francisco Cisse MD Mr. Hale is a 73 year old male that presented to the ED today with anterior chest pressure that has been occurring over the past 4-5 days that goes away at rest. He has persistent anemia, lightheadedness, and weakness. Reports chest discomfort and palpitations that is 'on and off'. He reports noticing hematuria and hematochezia that are both intermittent. Reports having 2-3 bowel movements typically. States urine is cranberry colored. Denies passing any clots, mild discomfort in the bladder area. No back pain. No fever or chills. No nausea or vomiting. Patient has a very complex medical history that includes: H/O Hepatocellular Carcinoma S/P IR embolization/portal vein thrombus, H/O FOFANA Cirrhosis S/P TIPS, prostate CA s/p radiation 2020, IDDM2, CKD, psoriasis, and depression. In the ED, WBC 3.16, hemoglobin 6.6, platelet 95. Initial troponin 507.8 likely related to ischemic demand rather than ACS. Pt laying in his hospital bed in no apparent distress. He is able to converse and answer questions appropriately. Complex individual with hematuria suspected to be radiation cystitis. With Hgb < 7.0; will transfuse 1 UPRBC and trend H/H Q6 hours. Will administer Lasix after blood transfusion, trend Troponin level, check ammonia level, and consult Urology. With increasing ascites, will order diagnostic/therapeutic paracentesis with GI consult pending culture results. Patient will be admitted for further evaluation and management. Please see A/P for further details. Allergies Allergy/AdvReac Type Severity Reaction Status Date / Time No Known Allergies Allergy Mild Verified 11/26/23 17:04 Home Medications Medication Instructions Recorded Confirmed Type allopurinol 100 mg tablet 200 mg PO BID 05/16/20 11/26/23 History finasteride 5 mg tablet 5 mg PO QAM 11/03/21 11/26/23 History furosemide 20 mg tablet (Lasix) 40 mg PO QAM 11/02/22 11/26/23 History insulin glargine 100 unit/mL 22 unit subcut DAILY 11/05/22 11/26/23 History subcutaneous solution (Lantus U-100 Insulin) acetaminophen 325 mg tablet 650 mg PO Q8H PRN Pain 02/24/23 11/26/23 History (Tylenol) triamcinolone acetonide 0.1 % 1 applic topical BID PRN PSORIATIC 02/24/23 11/26/23 History topical cream LESIONS WHEN NEEDED pantoprazole 40 mg tablet,delayed 40 mg PO BID 90 days #180 tabs 02/28/23 11/26/23 Rx release Lactobacil.acidophilus-Bifido.animalis 1 cap PO QAM 05/17/23 11/26/23 History 5 billion cell sprinkle capsule (Probiotic) acetylcysteine 600 mg capsule 600 mg PO QAM 05/17/23 11/26/23 History ferrous sulfate 325 mg (65 mg 325 mg PO QAM 05/17/23 11/26/23 History iron) tablet (iron) jiscyvsyejhs-zvz-teohm acid-vit 1 tab PO DAILY 05/17/23 11/26/23 History K-lycop 400 mcg-20 mcg-370 mcg tablet (Men's 50 Plus Multivitamin) rifaximin 550 mg tablet (Xifaxan) 550 mg PO BID 05/17/23 11/26/23 History baclofen 5 mg tablet 5 mg PO AMPM PRN Spasms 07/24/23 11/26/23 History duloxetine 60 mg capsule,delayed 60 mg PO DAILY 09/21/23 11/26/23 History release (Cymbalta) metoclopramide HCl 5 mg tablet 5 mg PO TID PRN Nausea 09/21/23 11/26/23 History mirtazapine 30 mg tablet (Remeron) 30 mg PO HS 09/21/23 11/26/23 History lactulose 10 gram oral packet 10 g PO BID #15 ea 09/23/23 11/26/23 Rx (Kristalose) Past Med/Surg History Medical History (Updated 11/26/23 @ 16:09 by JEFF Randall) Atypical chest pain Radiation cystitis Encounter for pre-operative examination History of blood transfusion 11/2022 Hepatocellular carcinoma Spinal fracture of T12 vertebra History of recent hospitalization 06/2023 [facility] hepatic encephalopathy Insulin dependent type 2 diabetes mellitus Liver spots Under surveillance, stable per patient Anxiety and depression 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 Anemia of chronic disease under surveillance Prostate cancer Hx radiation History of panic attacks Gout No current issues GERD (gastroesophageal reflux disease) GAVE (gastric antral vascular ectasia) CKD (chronic kidney disease) stage 3, GFR 30-59 ml/min Hypertension Hx Esophageal varices EGD 05/22/23 ([facility]): Grade 1 varices in distal esophagus without high risk stigmata Upper GI bleed Hx Psoriasis Surgical History History of left cataract surgery History of right cataract surgery History of prostate biopsy malignant S/P TIPS (transjugular intrahepatic portosystemic shunt) History of esophagogastroduodenoscopy (EGD) Most recent 05/2023 [facility] History of colonoscopy with polypectomy History of tonsillectomy and adenoidectomy History of abdominal paracentesis Multiple, most recent 01/2023 Family History Father , "3/4 liver gone due to drinking" Colorectal cancer, Onset Age: 63 Mother Lung cancer Daughter Cancer cervical and thyroid cancers Ovarian cancer Other No family history of adverse response to anesthesia 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 Smoking Status: Never smoker Second Hand Exposure: No; Do You Dip or Chew Tobacco: No; Hx Alcohol Use: No Hx Substance Use: No Preferred Language: Tajik Communication Ability: Effective Visual Impairment: No Limitations Hearing Ability: Normal Ergonomic Specialist Required: No Beliefs That Will Affect Care: None marital status: Current Living Situation: Spouse 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 How many Children do You have: 6 How many Children do You have Comment: one , eldest daughter in her sleep from seizure disorder Other Information That Helps Us Care for You: No Feels Safe at Home: Yes Childhood Exposure to Second-Hand Smoke: Yes Diet Comment: "I watch my sugar, average fasting is 140 mg/dl" caffeine: Yes (cola, sugar free, decaf) during the past year weight has: remained stable Dental Care, Regularly: No Physical Activity Frequency: Does not Exercise Seatbelt Use: always Sunscreen Use: Yes Assistive Devices: Glasses and Walker Review of Systems Review of Systems: Neuro: (-) Falls, trauma, slurred speech HEENT: (-) PHELPS, dizziness, dysphagia, visual or auditory changes CV: (-) CP, palpitations, swelling Resp: (-) SOB GI: (-) appetite changes, N/V/D, bowel changes : (-) urinary changes Skin: (-) rashes Psych: (-) anxiety, depression Physical Exam Physical Exam: Neuro: AAOx4, PERRLA, no aphagia, memory changes, CNII-XII grossly intact HEENT: head normocephalic, moist mucus membranes CV: S1/S2, (-) M/G/R, (-) edema, cap refill < 3 seconds Resp: Lungs CTA in all brand. On RA GI: Abdomen S/NT/ND, Ax4 bowel sounds, (-) CVA tenderness Musculoskeletal: 5/5 B/L UE strength, 5/5 B/L LE strength. No gait disturbance Skin: (-) rashes , (-) erythema. Psych: euthymic mood Results & Data Results & Data Vital Signs (Past 12 Hours) Vital Signs Temp Pulse Pulse Resp BP BP Pulse Ox 11/26/23 15:37 36.9 C 69 16 152/71 H 97 11/26/23 15:15 67 11/26/23 14:29 67 16 136/58 L 100 11/26/23 11:51 36.9 C 70 20 146/63 H 100 O2 Del Method 11/26/23 15:37 11/26/23 15:15 11/26/23 14:29 Room Air 11/26/23 11:51 Room Air Laboratory Results Short CBC 11/26/23 Range/Units 13:27 WBC 3.16 L (4.8-10.8) K/ul Hgb 6.6 L* (14.0-18.0) g/dl Hct 20.8 L* (42.0-52.0) % Plt Count 95 L (130-400) K/uL BMP 11/26/23 13:27 Sodium 140 Potassium 4.5 Chloride 113 H Carbon Dioxide 21 BUN 29 H Creatinine 1.26 Glucose 223 H Calcium 8.4 L Liver Function 11/26/23 Range/Units 13:27 Total Bilirubin 2.3 H (0.2-1.0) mg/dl AST 41 H (13-39) U/L ALT 20 (7-52) U/L Alkaline Phosphatase 195 H (34-104) U/L Albumin 2.9 L (3.4-5.0) gm/dl Diagnostic Findings Abdomen/Pelvis CT 11/26/23 14:30 CT SCAN OF THE ABDOMEN AND PELVIS WITHOUT IV CONTRAST CLINICAL HISTORY: Hematuria. Nausea and vomiting. COMPARISON STUDY: Abdominal CT dated 08/27/2023. TECHNIQUE: CT scan of the abdomen and pelvis is performed from the lung bases to the proximal femora. Images are reviewed in the axial, sagittal, and coronal planes. IV contrast was not administered for this examination. Note that the examination was performed and significantly suboptimal fashion without oral and IV contrast. A dose lowering technique was utilized adhering to the principles of ALARA. CT DOSE: 1192.68 mGy.cm FINDINGS: Lung bases: The heart is mildly enlarged noting a small pericardial effusion. The coronary arteries are densely calcified. There is degenerative attenuation of the cardiac blood pool as compared to the myocardium suggesting anemia. A small hiatal hernia is noted. The lung bases are clear noting dependent atelecta sis. Gynecomastia is noted. Liver: The unenhanced liver is cirrhotic in morphology and heterogeneous in attenuation. There is hypertrophy of the left lobe and nodularity of the hepatic surface contour. There is no intrahepatic biliary ductal dilatation. A TIPS catheter is in place. Gallbladder: There are calcified gallstones without CT evidence of acute cholecystitis. Spleen: The spleen is enlarged, measuring 16.8 cm in length. Pancreas: A 2 cm cystic lesion in the pancreatic head with peripheral calcifications is again seen on image #125. The unenhanced pancreas is otherwise grossly unremarkable. Adrenal glands: Unremarkable. Kidneys: The unenhanced kidneys demonstrate mild cortical atrophy and are without hydronephrosis. There are no renal calculi identified. There is no evid ence of contour deforming renal mass lesion. Abdominal vasculature: The abdominal aorta is normal in course and caliber noting mild to moderate atherosclerotic calcification. Bowel: There is advanced colonic diverticulosis without CT evidence of acute diverticulitis. No bowel obstruction is seen. The appendix is normal as visualized. Peritoneum: There is a moderate volume of abdominopelvic ascites. There is ascitic fluid containing umbilical hernia. No intracranial free air is seen. Lymphadenopathy: None. Pelvic viscera: The prostate gland is enlarged and heterogeneous noting median lobe hypertrophy. The bladder is distended, and the wall is mildly thickened/trabeculated indicating chronic outlet obstruction. Skeletal structures: The Skeletal structures are osteopenic. There is an acute appearing subacute superior endplate compression fracture of L2 with mild loss of height. This is new from 08/27/2023, and there is only minimal retropulsion of fragments. There is subacute 3 column fracture of the T12 vertebral body. This is unchanged from recent prior examinations. A chronic superior endplate compression deformity of L1 is unchanged. These are new from No lytic or blastic lesions are seen. IMPRESSION: 1. Acute appearing superior endplate compression fracture of L2 with mild loss of height and minimally retropulsed fragments. This is new from 08/27/2023. There is no significant central canal stenosis at this level. 2. A subacute/healing 3 column fracture of T12 is unchanged in alignment. 3. Cirrhotic liver morphology. 4. A moderate volume of abdominopelvic ascites and splenomegaly indicate portal hypertension. 5. Cardiomegaly. 6. A TIPS catheter is in place. 7. Cholelithiasis. 8. Colonic diverticulosis without CT evidence of acute diverticulitis. 9. Additional findings as above. ACT 112: Negative or not required by law. Electronically signed by: Scott Yepez M.D. 11/26/2023 3:12 PM Code Status & VTE Plan Code Status Full code in the event of cardiac or respiratory arrest VTE Prophylaxis Plan VTE Prophylaxis will be ordered: Yes Supervising Physician Co-Signing Physician Notes I have seen and discussed the case with the collaborating ELECTRONIC TECHNICIAN I agree with the above H&P. I have reviewed and confirmed the patients medical history, the findings on physical examination, and the patients diagnosis and treatment plan with JEFF and agree with the information documented with the following additions. In short, Mr. Hale is a 73 year old gentleman with complicated past medical history notable for decompensated FOFANA cirrhosis s/p TIPS procedure, prostate cancer s/p radiation c/b radiation cystitis who is being admitted for ACS r/o as well as eval for acute on chronic anemia iso gross hematuria x10 days. Patient reports chest pressure x 5 days on exertion, improves with rest, substernal--this is typical angina. Patient notes that he has experienced ongoing hematuria, usually light pink in color for a few days, intermittently since radiation in 12/2022; however, the last 10 days he has noted yannick blood. He denies clots, obstructive like symptoms, or other concerns. Denies fevers, chills. Trop elevated to 507. EKG nonischemic. Physical Exam: Weak looking gentleman, but conversational and pleasant; CV RRR, no mumur or gallop. RESP decreased airway movement, no crackles; GI protuberant abdomen, fluid wave, nontender/no guarding, no suprapubic tenderness. Labs with anemia 6.6. Trop 507 UA +blood/rbc #Hematuria #Radiation Cystitis -Plan for urology consult #Acute on chronic anemia -Potentially related to ongoing/worsening radiation cystitis -Transfusing 1 UPRBC in ED, trend CBC, transfuse <7.0 #Typical Chest pain #Elevated Troponin -History of pain (substernal pressure, worse on exertion, relieved with rest) concerning -Trend trop, EKG for chest pain -Cardiology consult, NPO midnight Rest of plan as above
[2023-11-26] MEDS ORDERED: FUROSEMIDE INJ 20 MG/2 ML VIAL IV ONE ×2 (16:15→17:26)
[2023-11-26] MEDS ORDERED: PHARMACY GLYCEMIC MGMT CONSULT PRN (16:49)
[2023-11-26] MEDS ORDERED: GLUCOSE 10 TAB/TUBE PO PRN (16:49)
[2023-11-26] MEDS ORDERED: GLUCAGON FOR INJ 1 MG VIAL SQ PRN (16:49)
[2023-11-26] MEDS ORDERED: CARBOHYDRATES FOR HYPOGLYCEMIA PO PRN (16:49)
[2023-11-26] MEDS ORDERED: GLUCOSE 40% GEL 15 GM TUBE PO PRN (16:49)
[2023-11-26] MEDS ORDERED: DEXTROSE 50% 50 ML SYRINGE IV PRN (16:49)
[2023-11-26 17:16] LABS: Appearance Urine Clear (Clear); Bacteria Urine Automated Negative (Negative); Bilirubin Urine Negative (Negative); Blood Urine 3+ (Negative); Color Urine Yellow; Epithelial Cell Urine Auto 0-5 /lpf (0-5); Glucose Urine UA 1+ (Negative); Ketones Urine Negative (Negative); Leukocyte Esterase Urine Trace (Negative); Nitrite Urine Negative (Negative); Protein Urine Negative (Negative); RBC Urine Automated >30 /hpf (0-4); Specific Gravity Urine 1.021 (1.000-1.030); Urobilinogen Urine Negative (Negative)
[2023-11-26] MEDS ORDERED: TRIAMCINOLONE ACET 0.1% CR 15 GM TUBE TOP PRN (17:23)
[2023-11-26] MEDS: INSULIN ASPART PER UNIT CHARGE SC SCH ×2 (19:28→22:13)
--- NOTE | 2023-11-26 21:03 | Emergency Department Note ---
History of Present Illness General Chief complaint: Illness Stated complaint: NAUSEA, DIZZINESS, LIGHT HEADED CHEST PAIN, VOMITI Time Seen by Provider: 11/26/23 14:07 History of Present Illness Provider complaint: Anemia Onset (ago): week(s) 1 Maximum Pain Intensity: 4 73-year-old male with history of FOFANA, cirrhosis, Prostate cancer presents emergency department for anemia. Patient reports he has been having palpitations weakness and chest pain. He reports blood in his urine. No fever no abdominal pain no dysuria. No melena or hematochezia. Home Medications Medication Instructions Recorded Confirmed Type allopurinol 100 mg tablet 200 mg PO BID 05/16/20 11/26/23 History finasteride 5 mg tablet 5 mg PO QAM 11/03/21 11/26/23 History furosemide 20 mg tablet (Lasix) 40 mg PO QAM 11/02/22 11/26/23 History insulin glargine 100 unit/mL 22 unit subcut DAILY 11/05/22 11/26/23 History subcutaneous solution (Lantus U-100 Insulin) acetaminophen 325 mg tablet 650 mg PO Q8H PRN Pain 02/24/23 11/26/23 History (Tylenol) triamcinolone acetonide 0.1 % 1 applic topical BID PRN PSORIATIC 02/24/23 11/26/23 History topical cream LESIONS WHEN NEEDED pantoprazole 40 mg tablet,delayed 40 mg PO BID 90 days #180 tabs 02/28/23 11/26/23 Rx release Lactobacil.acidophilus-Bifido.animalis 1 cap PO QAM 05/17/23 11/26/23 History 5 billion cell sprinkle capsule (Probiotic) acetylcysteine 600 mg capsule 600 mg PO QAM 05/17/23 11/26/23 History ferrous sulfate 325 mg (65 mg 325 mg PO QAM 05/17/23 11/26/23 History iron) tablet (iron) qkomvmfbtsqm-zci-bnxie acid-vit 1 tab PO DAILY 05/17/23 11/26/23 History K-lycop 400 mcg-20 mcg-370 mcg tablet (Men's 50 Plus Multivitamin) rifaximin 550 mg tablet (Xifaxan) 550 mg PO BID 05/17/23 11/26/23 History baclofen 5 mg tablet 5 mg PO AMPM PRN Spasms 07/24/23 11/26/23 History duloxetine 60 mg capsule,delayed 60 mg PO DAILY 09/21/23 11/26/23 History release (Cymbalta) metoclopramide HCl 5 mg tablet 5 mg PO TID PRN Nausea 09/21/23 11/26/23 History mirtazapine 30 mg tablet (Remeron) 30 mg PO HS 09/21/23 11/26/23 History lactulose 10 gram oral packet 10 g PO BID #15 ea 09/23/23 11/26/23 Rx (Kristalose) Allergies Allergy/AdvReac Type Severity Reaction Status Date / Time No Known Allergies Allergy Mild Verified 11/26/23 17:04 Past Med/Surg History Medical History Atypical chest pain Radiation cystitis Encounter for pre-operative examination History of blood transfusion 11/2022 Hepatocellular carcinoma Spinal fracture of T12 vertebra History of recent hospitalization 06/2023 [facility] hepatic encephalopathy Insulin dependent type 2 diabetes mellitus Liver spots Under surveillance, stable per patient Anxiety and depression 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 Anemia of chronic disease under surveillance Prostate cancer Hx radiation History of panic attacks Gout No current issues GERD (gastroesophageal reflux disease) GAVE (gastric antral vascular ectasia) CKD (chronic kidney disease) stage 3, GFR 30-59 ml/min Hypertension Hx Esophageal varices EGD 05/22/23 ([facility]): Grade 1 varices in distal esophagus without high risk stigmata Upper GI bleed Hx Psoriasis Surgical History History of left cataract surgery History of right cataract surgery History of prostate biopsy malignant S/P TIPS (transjugular intrahepatic portosystemic shunt) History of esophagogastroduodenoscopy (EGD) Most recent 05/2023 [facility] History of colonoscopy with polypectomy History of tonsillectomy and adenoidectomy History of abdominal paracentesis Multiple, most recent 01/2023 Family History Father , "3/4 liver gone due to drinking" Colorectal cancer, Onset Age: 63 Mother Lung cancer Daughter Cancer cervical and thyroid cancers Ovarian cancer Other No family history of adverse response to anesthesia 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 Smoking Status: Never smoker Second Hand Exposure: No; Do You Dip or Chew Tobacco: No; Hx Alcohol Use: No Hx Substance Use: No Preferred Language: Tajik Communication Ability: Effective Visual Impairment: No Limitations Hearing Ability: Normal Assistant Case Manager Required: No Beliefs That Will Affect Care: None marital status: Current Living Situation: Spouse 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 How many Children do You have: 6 How many Children do You have Comment: one , eldest daughter in her sleep from seizure disorder Other Information That Helps Us Care for You: No Feels Safe at Home: Yes Childhood Exposure to Second-Hand Smoke: Yes Diet Comment: "I watch my sugar, average fasting is 140 mg/dl" caffeine: Yes (cola, sugar free, decaf) during the past year weight has: remained stable Dental Care, Regularly: No Physical Activity Frequency: Does not Exercise Seatbelt Use: always Sunscreen Use: Yes Assistive Devices: Glasses and Walker Physical Exam Vital Signs Vital Signs - 24 hr 11/26/23 11:51 11/26/23 14:29 11/26/23 15:15 Temperature 36.9 C Temperature Source Temporal Artery Scan Pulse Rate 70 67 Pulse Rate [Apical] 67 Respiratory Rate 20 16 Respiratory Effort / Characteristics Non-Labored Respiratory Depth Normal Blood Pressure 146/63 H Blood Pressure [Left Arm] 136/58 L Blood Pressure Mean 90 Blood Pressure Mean [Left Arm] 84 Pulse Oximetry 100 100 Oxygen Delivery Method Room Air Room Air Sepsis Recent Fever Within 48 Hours No Sepsis New/Unexplained Change in Mental Status Yes Sepsis Action Taken by Nursing No Action Required 11/26/23 15:37 Temperature 36.9 C Temperature Source Oral Pulse Rate 69 Pulse Rate [Apical] Respiratory Rate 16 Respiratory Effort / Characteristics Respiratory Depth Blood Pressure 152/71 H Blood Pressure [Left Arm] Blood Pressure Mean 98 Blood Pressure Mean [Left Arm] Pulse Oximetry 97 Oxygen Delivery Method Sepsis Recent Fever Within 48 Hours Sepsis New/Unexplained Change in Mental Status Sepsis Action Taken by Nursing Physical Exam HENT: Exam performed. - Head: Normocephalic and atraumatic. EYES: Conjunctivae and EOM are normal. Pupils are equal, round, and reactive to light. Right eye exhibits no discharge. Left eye exhibits no discharge. Mild scleral icterus. NECK: Normal range of motion. Neck supple. No JVD present. No rigidity. No tracheal deviation and normal range of motion present. CV: Normal rate, regular rhythm, normal heart sounds and intact distal pulses. There is no peripheral edema. Palpable radial pulses bue. PULM/CHEST: Effort normal and breath sounds normal. No respiratory distress. No stridor. He has no wheezes. He has no rales. ABD: The abdomen is soft. Bowel sounds are normal. He has distension. No mass is present. There is no tenderness. There is no rebound, no guarding. MUSC/SKEL: Normal range of motion. There is no peripheral edema, tenderness or deformity. LYMPH: No cervical adenopathy. NEURO: He is alert and oriented to person, place, and time. He has normal strength. No cranial nerve deficit or sensory deficit. Coordination and gait normal. GCS eye subscore is 4. GCS verbal subscore is 5. GCS motor subscore is 6. Cerebellar tests wnl. SKIN: Mild scleral icterus. PSYCH: He has a normal mood and affect. Behavior is normal. Judgment and thought content normal. Course Course 1407: The patient was evaluated in room B11. A complete history and physical exam was performed Cardiac monitoring: An order was placed for continuous cardiac monitoring. The monitor shows a rate of 70 with sinus rhythm interpreted by sd 1555: Vital signs stable. Labs show hemoglobin of 6.61 unit packed red blood cells ordered for the patient. CT of the abdomen pelvis shows a acute appearing superior endplate compression fracture of L2 with mild loss and minimal retropulsed fragments a subacute healing 3 column fracture of T12 which is unchanged moderate volume of ascites. [facility] Discussed case with ED who is working with Dr. Velazquez and he will be down to evaluate the patient. Administered Medications Insulin Aspart (Insulin Aspart Per Unit Charge) 0 units SC ACHS JODI Stop: 12/26/23 17:59 Last Admin: 11/26/23 19:28 Dose: 6 units Documented By: MED Co-signed By: AB Discontinued Medications Furosemide (Furosemide Inj 20 Mg/2 Ml Vial) 20 mg IV ONE ONE Stop: 11/26/23 16:16 Last Admin: 11/26/23 16:24 Dose: 20 mg Documented By: TORRES Furosemide (Furosemide Inj 20 Mg/2 Ml Vial) 20 mg IV ONE ONE Stop: 11/26/23 17:27 Last Admin: 11/26/23 19:13 Dose: 20 mg Documented By: MED Critical Care Time Critical Care Time: Yes Total Critical Care Time: 73 I have personally spent greater than 73 minutes of critical care time in the direct management of this patient. This includes bedside care, interpretation of diagnostic studies, and testing, discussion with consultants, patient, and family members, and other required patient management activities. This 73 minutes is in excess of all separately billable procedures. Medical Decision Making Laboratory Data Attestation: I reviewed the patient's lab results. 11/26/23 13:27 11/26/23 13:27 Lab Results 11/26/23 11/26/23 Range/Units 13:27 14:25 WBC 3.16 L (4.8-10.8) K/ul RBC 2.07 L (4.70-6.10) M/uL Hgb 6.6 L* (14.0-18.0) g/dl Hct 20.8 L* (42.0-52.0) % MCV 100.5 H (80.0-100.0) fL MCH 31.9 (25.0-34.0) pg MCHC 31.7 L (32.0-36.0) g/dL RDW Std Deviation 63.9 H (36.4-46.3) fL RDW Coeff of Violetta 17.4 H (11.5-14.5) % Plt Count 95 L (130-400) K/uL MPV 12.7 H (9.4-12.4) fL PT 11.9 (9.0-12.0) Seconds INR 1.1 (0.9-1.1) APTT 22 (21-31) Seconds PTT Ratio 0.8 Sodium 140 (136-145) mmol/L Potassium 4.5 (3.5-5.1) mmol/L Chloride 113 H (98-107) mmol/L Carbon Dioxide 21 (21-32) mmol/L Anion Gap 6 (3-11) BUN 29 H (6-23) mg/dl Creatinine 1.26 (0.6-1.4) mg/dl Est Cr Clr Drug Dosing Not Reportable Est GFR ( Amer) 65.2 ml/min Est GFR (Non-Af Amer) 56.2 ml/min BUN/Creatinine Ratio 23.0 H (10-20) Glucose 223 H (70-99(Fasting)) mg/dl Calcium 8.4 L (8.6-10.3) mg/dl Ferritin 15.2 (8-388) ng/ml Total Bilirubin 2.3 H (0.2-1.0) mg/dl AST 41 H (13-39) U/L ALT 20 (7-52) U/L Alkaline Phosphatase 195 H (34-104) U/L Troponin I High Sens 507.8 H* (0-20) pg/ml Total Protein 6.8 (6.0-8.3) gm/dl Albumin 2.9 L (3.4-5.0) gm/dl Globulin 3.9 (2.5-4.0) gm/dl Albumin/Globulin Ratio 0.7 L (0.9-2) Blood Type O Positive Antibody Screen NEGATIVE Crossmatch See Detail Imaging Data Radiologist's Impression: Abdomen/Pelvis CT 11/26/23 14:30 CT SCAN OF THE ABDOMEN AND PELVIS WITHOUT IV CONTRAST CLINICAL HISTORY: Hematuria. Nausea and vomiting. COMPARISON STUDY: Abdominal CT dated 08/27/2023. TECHNIQUE: CT scan of the abdomen and pelvis is performed from the lung bases to the proximal femora. Images are reviewed in the axial, sagittal, and coronal planes. IV contrast was not administered for this examination. Note that the examination was performed and significantly suboptimal fashion without oral and IV contrast. A dose lowering technique was utilized adhering to the principles of ALARA. CT DOSE: 1192.68 mGy.cm FINDINGS: Lung bases: The heart is mildly enlarged noting a small pericardial effusion. The coronary arteries are densely calcified. There is degenerative attenuation of the cardiac blood pool as compared to the myocardium suggesting anemia. A small hiatal hernia is noted. The lung bases are clear noting dependent atelectasis. Gynecomastia is noted. Liver: The unenhanced liver is cirrhotic in morphology and heterogeneous in attenuation. There is hypertrophy of the left lobe and nodularity of the hepatic surface contour. There is no intrahepatic biliary ductal dilatation. A TIPS catheter is in place. Gallbladder: There are calcified gallstones without CT evidence of acute cholecystitis. Spleen: The spleen is enlarged, measuring 16.8 cm in length. Pancreas: A 2 cm cystic lesion in the pancreatic head with peripheral calcifications is again seen on image #125. The unenhanced pancreas is otherwise grossly unremarkable. Adrenal glands: Unremarkable. Kidneys: The unenhanced kidneys demonstrate mild cortical atrophy and are without hydronephrosis. There are no renal calculi identified. There is no evidence of contour deforming renal mass lesion. Abdominal vasculature: The abdominal aorta is normal in course and caliber noting mild to moderate atherosclerotic calcification. Bowel: There is advanced colonic diverticulosis without CT evidence of acute diverticulitis. No bowel obstruction is seen. The appendix is normal as visualized. Peritoneum: There is a moderate volume of abdominopelvic ascites. There is ascitic fluid containing umbilical hernia. No intracranial free air is seen. Lymphadenopathy: None. Pelvic viscera: The prostate gland is enlarged and heterogeneous noting median lobe hypertrophy. The bladder is distended, and the wall is mildly thickened/trabeculated indicating chronic outlet obstruction. Skeletal structures: The Skeletal structures are osteopenic. There is an acute appearing subacute superior endplate compression fracture of L2 with mild loss of height. This is new from 08/27/2023, and there is only minimal retropulsion of fragments. There is subacute 3 column fracture of the T12 vertebral body. This is unchanged from recent prior examinations. A chronic superior endplate compression deformity of L1 is unchanged. These are new from No lytic or blastic lesions are seen. IMPRESSION: 1. Acute appearing superior endplate compression fracture of L2 with mild loss of height and minimally retropulsed fragments. This is new from 08/27/2023. There is no significant central canal stenosis at this level. 2. A subacute/healing 3 column fracture of T12 is unchanged in alignment. 3. Cirrhotic liver morphology. 4. A moderate volume of abdominopelvic ascites and splenomegaly indicate portal hypertension. 5. Cardiomegaly. 6. A TIPS catheter is in place. 7. Cholelithiasis. 8. Colonic diverticulosis without CT evidence of acute diverticulitis. 9. Additional findings as above. ACT 112: Negative or not required by law. Electronically signed by: Scott Yepez M.D. 11/26/2023 3:12 PM ECG Data Attestation: I personally reviewed and interpreted this ECG as follows: Rate (beats per minute): 72 Rhythm: + normal sinus ECG ST segments: + Normal ST segments Additional Comments: [place] 174 QRS 76 QTc 508. [facility] Narrative 1407: The patient was evaluated in room B11. A complete history and physical exam was performed Cardiac monitoring: An order was placed for continuous cardiac monitoring. The monitor shows a rate of 70 with sinus rhythm interpreted by me 1555: Vital signs stable. Labs show hemoglobin of 6.61 unit packed red blood cells ordered for the patient. CT of the abdomen pelvis shows a acute appearing superior endplate compression fracture of L2 with mild loss and minimal retropulsed fragments a subacute healing 3 column fracture of T12 which is unchanged moderate volume of ascites. [facility] Discussed case with ED who is working with Dr. Velazquez and he will be down to evaluate the patient. Impression & Plan Anemia, Liver disease, Hematuria Discharge Plan Visit Data Chief Complaint: Illness Stated Complaint: NAUSEA, DIZZINESS, LIGHT HEADED CHEST PAIN, VOMITI ED Provider: Ravindra Mars Discharge Problem: Anemia, Liver disease, Hematuria Patient Disposition: Admitted As Inpatient Discharge Instructions Interventions: ED Discharge Assessment Last Done: 11/26/23 18:00
[2023-11-26] MEDS: allopurinoL 100 MG TAB PO SCH (21:36)
[2023-11-26] MEDS: rifAXIMin 550 MG TABLET PO SCH (21:36)
[2023-11-26] MEDS: PANTOprazole 40 MG TAB PO SCH (21:38)
[2023-11-26] MEDS: LACTULOSE SYRUP 10 GM/15 ML BTL 960 ML PO SCH (21:38)
[2023-11-26] MEDS: LANTUS PER UNIT CHARGE SQ SCH (22:12)
[2023-11-27 06:42] LABS: Hematocrit (blood only) 20.7 % (42.0-52.0); Hemoglobin 6.6 g/dl (14.0-18.0); Mean Corpuscular Hgb Conc 31.9 g/dL (32.0-36.0); Mean Corpuscular Volume 97.2 fL (80.0-100.0); Mean Platelet Volume 12.9 fL (9.4-12.4); Platelet Count 85 K/uL (130-400); RDW Coefficient of Variation 18.8 % (11.5-14.5); RDW Standard Deviation 67.1 fL (36.4-46.3); Red Blood Count 2.13 M/uL (4.70-6.10); White Blood Count 3.29 K/ul (4.8-10.8)
[2023-11-27 06:45] LABS: Albumin Globulin Ratio 0.8 (0.9-2); Albumin Level 2.5 gm/dl (3.4-5.0); BUN Creatinine Ratio 21.3 (10-20); Bilirubin,Total 3.2 mg/dl (0.2-1.0); Calcium 7.8 mg/dl (8.6-10.3); Creatinine Clr Calc Pharmacy 55.7 ml/min; Est GFR (African American) 67.7 ml/min; Est GFR (Non-African American) 58.5 ml/min; Globulin 3.2 gm/dl (2.5-4.0); Magnesium 1.5 mg/dl (1.7-2.4); Potassium 4.1 mmol/L (3.5-5.1); Total Protein 5.7 gm/dl (6.0-8.3)
[2023-11-27 07:38] LABS: Estimated Average Glucose 105 mg/dl; Hemoglobin A1C 5.3 % (4.5-5.6)
[2023-11-27] MEDS: FINASTERIDE 5 MG TAB PO SCH (08:25)
[2023-11-27] MEDS: rifAXIMin 550 MG TABLET PO SCH ×2 (08:25→20:15)
[2023-11-27] MEDS: FUROSEMIDE 40 MG TAB PO SCH (08:25)
[2023-11-27] MEDS: allopurinoL 100 MG TAB PO SCH ×2 (08:25→20:16)
[2023-11-27] MEDS: PANTOprazole 40 MG TAB PO SCH ×2 (08:25→20:15)
[2023-11-27] MEDS: DULoxetine HCL 60 MG CAP PO SCH (08:25)
[2023-11-27] MEDS: FERROUS SULFATE 325 MG TAB PO SCH (08:25)
[2023-11-27] MEDS: LACTULOSE SYRUP 10 GM/15 ML BTL 960 ML PO SCH ×2 (08:26→20:17)
[2023-11-27] MEDS: LANTUS PER UNIT CHARGE SQ SCH ×2 (08:44→20:21)
[2023-11-27] MEDS: INSULIN ASPART PER UNIT CHARGE SC SCH ×4 (08:45→20:20)
[2023-11-27] MEDS ORDERED: ACETAMINOPHEN 325 MG TAB PO ONE (09:34)
[2023-11-27] MEDS ORDERED: SODIUM CHLORIDE 0.9% 250 ML IV PRN (09:34)
--- NOTE | 2023-11-27 10:22 | Cardiology Consultation ---
Date of Consultation November 27, 2023 Assessment & Plan (1) Elevated troponin: (2) Demand ischemia: (3) Symptomatic anemia: Plan Complex 73-year-old male with history of prostate cancer status post radiation and cirrhosis with esophageal varices admitted with recurrent symptomatic anemia, hemoglobin 6.6 g/dL. Patient with chronic intermittent and active intermittent GI and bleeding. EKG with mild inferolateral ST segment depression with troponin elevation representing demand ischemia secondary to marked symptomatic anemia. Patient with contraindications to antiplatelet and anticoagulation. Patient with past poor tolerance to beta-jassi therapy per chart review. Agree with transfusion of pRBC's. Recommend maintaining a Hemoglobin of 8 g/dL or greater. Recommend conservative noninterventional cardiac medical management. No further cardiac testing/intervention anticipated at this time. Supervising Physician Co-Signing Physician Notes Supervising Physician Attestation: I have personally performed a history and physical examination on the patient. I agree with the physician mechanic assistant's findings and plan as documented with the following additions. Subjective: Patient states he feels well at present at rest. A second unit of packed red blood cells has successfully been transfused. Telemetry reveals sinus rhythm in the 60s to 70s with occasional PACs Exam: Pulmonary: Lungs clear to auscultation bilaterally cardiovascular: Regular rhythm, 1/6 systolic murmur, no edema Abdomen: Distended, findings consistent with ascites, nontender Data: EKG performed 11/26/2023 at 1325 interpret independently: Sinus rhythm at 72 bpm with occasional PVCs and fusion beats, nonspecific T wave flattening Assessment and Plan: Demand ischemia in the setting of anemia -Based on patient's symptoms and the mild elevation in the high-sensitivity troponin levels, myocardial ischemia present. He had a CT of the thoracic spine earlier this year. Per my personal interpretation of these images, diffuse coronary calcification noted. -He is not a candidate for percutaneous or surgical revascularization at present given his anemia issues. -Recommend transfusing to maintain hemoglobin of at least 8 g/dL. -Continue chronic furosemide. DVT prophylaxis: Consider SCDs I spent a total of 20 minutes on the date of service in preparation, delivery, and documentation of the care provided to this patient, excluding any time spent in the performance of separately billed services. Rodrigo Reynolds, DO History of Present Illness Reason for Consultation: Atypical chest pain, elevated troponin Requesting Physician: Dr. Ale Velazquez Attending Physician: Dr. Franko Villanueva MD History of Present Illness Mr. Luis Hale is a 73-year-old male who was admitted to the [facility] November 26, 2023 with weakness, dizziness/lightheadedness, nausea, and chest heaviness over the past week. + Intermittent hematuria and hematochezia. Hemoglobin 6.6 g/dL on presentation, receiving 1 unit of pRBC's. Hemoglobin 6.6 this a.m. with plans to receive a second unit of pRBC's this AM Patient describes chest heaviness that occurs with exertional activity as well as chest discomfort that is reproducible with palpation of the chest wall and aided by acetaminophen. EKG on presentation revealed sinus rhythm at 72 bpm with occasional premature ventricular complexes or fusion complexes with inferolateral ST abnormality. Cannot rule out an old anterior infarct. QTc prolonged at 508 ms. High-sensitivity troponin elevated on presentation at 507.8 then 654.0 pg/mL. 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 Type 2 diabetes Chronic anemia, thrombocytopenia CKD stage IIIA Hepatocellular carcinoma status post IR embolization 04/18/2021, recurrent lesions undergoing mass embolization in January 2022. Repeat planned for 3 months Prostate carcinoma status post radiation History of atypical chest pain Anemia, with frequent iron infusions and frequent blood transfusions Allergies Allergy/AdvReac Type Severity Reaction Status Date / Time No Known Allergies Allergy Mild Verified 11/26/23 17:04 Home Medications Medication Instructions Recorded Confirmed Type allopurinol 100 mg tablet 200 mg PO BID 05/16/20 11/26/23 History finasteride 5 mg tablet 5 mg PO QAM 11/03/21 11/26/23 History furosemide 20 mg tablet (Lasix) 40 mg PO QAM 11/02/22 11/26/23 History insulin glargine 100 unit/mL 22 unit subcut DAILY 11/05/22 11/26/23 History subcutaneous solution (Lantus U-100 Insulin) acetaminophen 325 mg tablet 650 mg PO Q8H PRN Pain 02/24/23 11/26/23 History (Tylenol) triamcinolone acetonide 0.1 % 1 applic topical BID PRN PSORIATIC 02/24/23 11/26/23 History topical cream LESIONS WHEN NEEDED pantoprazole 40 mg tablet,delayed 40 mg PO BID 90 days #180 tabs 02/28/23 11/26/23 Rx release Lactobacil.acidophilus-Bifido.animalis 1 cap PO QAM 05/17/23 11/26/23 History 5 billion cell sprinkle capsule (Probiotic) acetylcysteine 600 mg capsule 600 mg PO QAM 05/17/23 11/26/23 History ferrous sulfate 325 mg (65 mg 325 mg PO QAM 05/17/23 11/26/23 History iron) tablet (iron) vjxewczrjxjc-tlp-yetmy acid-vit 1 tab PO DAILY 05/17/23 11/26/23 History K-lycop 400 mcg-20 mcg-370 mcg tablet (Men's 50 Plus Multivitamin) rifaximin 550 mg tablet (Xifaxan) 550 mg PO BID 05/17/23 11/26/23 History baclofen 5 mg tablet 5 mg PO AMPM PRN Spasms 07/24/23 11/26/23 History duloxetine 60 mg capsule,delayed 60 mg PO DAILY 09/21/23 11/26/23 History release (Cymbalta) metoclopramide HCl 5 mg tablet 5 mg PO TID PRN Nausea 09/21/23 11/26/23 History mirtazapine 30 mg tablet (Remeron) 30 mg PO HS 09/21/23 11/26/23 History lactulose 10 gram oral packet 10 g PO BID #15 ea 09/23/23 11/26/23 Rx (Kristalose) Patient History Medical History Atypical chest pain Radiation cystitis Encounter for pre-operative examination History of blood transfusion 11/2022 Hepatocellular carcinoma Spinal fracture of T12 vertebra History of recent hospitalization 06/2023 [facility] hepatic encephalopathy Insulin dependent type 2 diabetes mellitus Liver spots Under surveillance, stable per patient Anxiety and depression 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 Anemia of chronic disease under surveillance Prostate cancer Hx radiation History of panic attacks Gout No current issues GERD (gastroesophageal reflux disease) GAVE (gastric antral vascular ectasia) CKD (chronic kidney disease) stage 3, GFR 30-59 ml/min Hypertension Hx Esophageal varices EGD 05/22/23 ([facility]): Grade 1 varices in distal esophagus without high risk stigmata Upper GI bleed Hx Psoriasis Surgical History History of left cataract surgery History of right cataract surgery History of prostate biopsy malignant S/P TIPS (transjugular intrahepatic portosystemic shunt) History of esophagogastroduodenoscopy (EGD) Most recent 05/2023 [facility] History of colonoscopy with polypectomy History of tonsillectomy and adenoidectomy History of abdominal paracentesis Multiple, most recent 01/2023 Family History Father , "3/4 liver gone due to drinking" Colorectal cancer, Onset Age: 63 Mother Lung cancer Daughter Cancer cervical and thyroid cancers Ovarian cancer Other No family history of adverse response to anesthesia 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 Smoking Status: Never smoker Second Hand Exposure: No; Do You Dip or Chew Tobacco: No; Hx Alcohol Use: No Hx Substance Use: No Preferred Language: Mohawk Communication Ability: Effective Visual Impairment: No Limitations Hearing Ability: Normal Project Manager Retail Required: No Beliefs That Will Affect Care: None marital status: Current Living Situation: Spouse 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 How many Children do You have: 6 How many Children do You have Comment: one , eldest daughter in her sleep from seizure disorder Other Information That Helps Us Care for You: No Feels Safe at Home: Yes Childhood Exposure to Second-Hand Smoke: Yes Diet Comment: "I watch my sugar, average fasting is 140 mg/dl" caffeine: Yes (cola, sugar free, decaf) during the past year weight has: remained stable Dental Care, Regularly: No Physical Activity Frequency: Does not Exercise Seatbelt Use: always Sunscreen Use: Yes Assistive Devices: Walker Review of Systems Review of Systems: Complete Review of Systems is as stated above, negative, or noncontributory. Physical Exam Physical Exam: General: A&Ox3. NAD. Skin: Pale. Jaundice. + Rash HENT: Normocephalic. Atraumatic. Eyes: PER. Neck: Transmitted systolic murmur versus bilateral carotid bruits. No JVD. Heart: RRR. Grade II/ systolic ejection murmur. No diastolic murmur. No rub. Lungs: Clear to auscultation. Abdomen: +BS. Distended. Nontender. Extremities: No clubbing, cyanosis, or significant edema. Limited neurological examination is without focal deficits. Pulses: Posterior tibial=2/4. Results & Data Vital Signs (Past 12 Hours) Vital Signs Temp Pulse Pulse Resp BP BP Pulse Ox 11/27/23 08:51 69 11/27/23 08:33 36.6 C 66 19 122/62 99 11/27/23 02:47 37.1 C 69 19 102/58 L 98 11/27/23 00:23 11/27/23 00:08 71 11/27/23 00:08 36.7 C 72 16 133/61 97 O2 Del Method 11/27/23 08:51 11/27/23 08:33 Room Air 11/27/23 02:47 Room Air 11/27/23 00:23 Room Air 11/27/23 00:08 11/27/23 00:08 Room Air Laboratory Results Cardiac Enzymes 11/26/23 11/26/23 11/27/23 Range/Units 13:27 20:51 05:45 AST 41 H 29 (13-39) U/L Troponin I High Sens 507.8 H* 654.0 H* D (0-20) pg/ml Coagulation 11/26/23 Range/Units 13:27 PT 11.9 (9.0-12.0) Seconds APTT 22 (21-31) Seconds CBC 11/26/23 11/27/23 Range/Units 13:27 05:45 WBC 3.16 L 3.29 L (4.8-10.8) K/ul RBC 2.07 L 2.13 L (4.70-6.10) M/uL Hgb 6.6 L* 6.6 L* (14.0-18.0) g/dl Hct 20.8 L* 20.7 L* (42.0-52.0) % Plt Count 95 L 85 L (130-400) K/uL Comprehensive Metabolic Panel 11/26/23 11/27/23 Range/Units 13:27 05:45 Sodium 140 142 (136-145) mmol/L Potassium 4.5 4.1 (3.5-5.1) mmol/L Chloride 113 H 113 H (98-107) mmol/L Carbon Dioxide 21 24 (21-32) mmol/L BUN 29 H 26 H (6-23) mg/dl Creatinine 1.26 1.22 (0.6-1.4) mg/dl Glucose 223 H 134 H (70-99(Fasting)) mg/dl Calcium 8.4 L 7.8 L (8.6-10.3) mg/dl AST 41 H 29 (13-39) U/L ALT 20 15 (7-52) U/L Alkaline Phosphatase 195 H 145 H (34-104) U/L Total Protein 6.8 5.7 L (6.0-8.3) gm/dl Albumin 2.9 L 2.5 L (3.4-5.0) gm/dl Intake and Output 11/26/23 11/27/23 11/27/23 22:59 06:59 14:59 Intake Total 282 / 282 0 / 282 0 / 0 Output Total 800 / 1450 650 / 1450 Balance -518 / -1168 -650 / -1168 0 / 0 Intake: Oral 0 / 0 Intake (Blood Product) Amt 282 / 282 0 / 0 Packed Cells, Leukoreduced 282 / 282 Unit [id number] Packed Cells, Leukoreduced 2 0 / 0 Unit [id number] Output: Urine 800 / 1450 650 / 1450 Other: Weight 88.5 kg 82.2 kg Weight Measurement Method Built in [facility] Diagnostic Findings January 29, 2023 TTE Interpretation Summary (as per Dr. Reynolds): The LV wall thickness is moderately increased (concentric). The left ventricular wall motion is normal. Calculated LV ejection Fraction = 60% (bi-plane method of discs). The left ventricular diastolic function is moderately abnormal (grade II). Moderate aortic valve sclerosis is present. Aortic stenosis is absent. Mild mitral regurgitation is present. Mild tricuspid regurgitation is present. Mild pulmonary hypertension is present. The estimated pulmonary artery systolic pressure is 45 mm Hg. Compared to the prior study dated 12/27/2021, mild aortic valve sclerosis as compared to mild aortic valve sclerosis is not present. Moderate concentric left ventricular hypertrophy is present. Mild pulmonary hypertension is present. Ascites is now present. April 30, 2023 Lexiscan Interpretation Summary (as per Dr. Reynolds): The pharmacologic myocardial perfusion imaging study is normal with no evidence of scar or inducible ischemia. Gated SPECT imaging reveals normal myocardial thick ening and wall motion. The left ventricular ejection fraction was calculated to be 72% Telemetry: Sinus rhythm predominantly in the 60s and 70s with occasional PVCs. No significant bradycardia. No atrial fibrillation.
--- NOTE | 2023-11-27 11:39 | Urology Consultation ---
Date of Consultation November 27, 2023 Assessment & Plan (1) Hematuria: (2) Radiation cystitis: (3) Anemia: Plan 73yo/M with a complicated past medical history including FOFANA cirrhosis and prostate cancer s/p radiation therapy admitted with symptomatic anemia and elevated troponin. Urology consulted for evaluation of hematuria History of prostate ca s/p radiation, follows with Dr. Peraza of [facility] He is afebrile, VSS. Lab work reviewed - creatinine 1.22, WBC 3.29, Hgb 6.6 (received 1U PRBC). Continue to trend. Urinalysis with 3+ blood, trace LE, >30RBC, negative nitrite, negative bacteria. No culture pending. Patient is voiding spontaneously, urine is dark yellow. No hematuria or clots noted at time of exam. Continue to monitor. CT reviewed- No stones or hydronephrosis, thickened/trabeculated bladder indicating bladder outlet obstruction. No urologic intervention necessary. Hematuria appears to have cleared and was likely secondary to hx of radiation cystitis as a result of his prostate cancer treatment. Anemia is likely multifactorial and unlikely to be a direct result of the hematuria. Continue supportive care and management per primary team. Recommend that he follows up with his primary urologist, Dr. Peraza, for community health er work-up. Pt reports he is scheduled for cystoscopy in January. Urology will follow peripherally. Please contact us with any further questions or concerns. History of Present Illness Attending Physician: Franko Villanueva MD History of Present Illness 73 year old male with past medical history of FOFANA cirrhosis, esophageal varices, anemia of chronic disease, DM II, GI bleeding, prostate carcinoma s/p radiation, GERD, and CKD stage III admitted with symptomatic anemia and elevated troponin. He presented to [facility] ED on 11/26/23 with weakness, dizziness/lightheadedness, nausea, and chest heaviness over the past week. + Intermittent hematuria and hematochezia. On arrival, he was afebrile. Labs showing a WBC of 3.16 and creatinine 1.26. Hemoglobin 6.6, received 1 unit of pRBC's. Urinalysis with 3+ blood, negative nitrite, trace LE, >30RBC, and negative bacteria. CT abdomen pelvis reviewed - The unenhanced kidneys demonstrate mild cortical atrophy and are without hydronephrosis. There are no renal calculi identified. There is no evidence of contour deforming renal mass lesion. The prostate gland is enlarged and heterogeneous noting median lobe hypertrophy. The bladder is distended, and the wall is mildly thickened/trabeculated indicating chronic outlet obstruction. Urology consulted for hematuria. Patient follows with Dr. Peraza, [facility], for history of prostate cancer s/p radiation therapy. Patient seen and examined at bedside. He is sleeping and arouses easily to his name. No acute distress. Voiding spontaneously. Urine is dark yellow. No hematuria/clots noted in urinal at time of exam. He denies additional urinary symptoms at present. Denies incomplete emptying. He denies flank or abdominal pain. Denies fevers, chills, nausea, vomiting. Pt reports hematuria for approx 4-5 days prior to ED visit. He continues to follow with Dr. Peraza with [facility]. Reports he is scheduled for cystoscopy in January. Allergies Allergy/AdvReac Type Severity Reaction Status Date / Time No Known Allergies Allergy Mild Verified 11/26/23 17:04 Home Medications Medication Instructions Recorded Confirmed Type allopurinol 100 mg tablet 200 mg PO BID 05/16/20 11/26/23 History finasteride 5 mg tablet 5 mg PO QAM 11/03/21 11/26/23 History furosemide 20 mg tablet (Lasix) 40 mg PO QAM 11/02/22 11/26/23 History insulin glargine 100 unit/mL 22 unit subcut DAILY 11/05/22 11/26/23 History subcutaneous solution (Lantus U-100 Insulin) acetaminophen 325 mg tablet 650 mg PO Q8H PRN Pain 02/24/23 11/26/23 History (Tylenol) triamcinolone acetonide 0.1 % 1 applic topical BID PRN PSORIATIC 02/24/23 11/26/23 History topical cream LESIONS WHEN NEEDED pantoprazole 40 mg tablet,delayed 40 mg PO BID 90 days #180 tabs 02/28/23 11/26/23 Rx release Lactobacil.acidophilus-Bifido.animalis 1 cap PO QAM 05/17/23 11/26/23 History 5 billion cell sprinkle capsule (Probiotic) acetylcysteine 600 mg capsule 600 mg PO QAM 05/17/23 11/26/23 History ferrous sulfate 325 mg (65 mg 325 mg PO QAM 05/17/23 11/26/23 History iron) tablet (iron) pjhwqlyizvkq-far-amcdi acid-vit 1 tab PO DAILY 05/17/23 11/26/23 History K-lycop 400 mcg-20 mcg-370 mcg tablet (Men's 50 Plus Multivitamin) rifaximin 550 mg tablet (Xifaxan) 550 mg PO BID 05/17/23 11/26/23 History baclofen 5 mg tablet 5 mg PO AMPM PRN Spasms 07/24/23 11/26/23 History duloxetine 60 mg capsule,delayed 60 mg PO DAILY 09/21/23 11/26/23 History release (Cymbalta) metoclopramide HCl 5 mg tablet 5 mg PO TID PRN Nausea 09/21/23 11/26/23 History mirtazapine 30 mg tablet (Remeron) 30 mg PO HS 09/21/23 11/26/23 History lactulose 10 gram oral packet 10 g PO BID #15 ea 09/23/23 11/26/23 Rx (Kristalose) Patient History Medical History Atypical chest pain Radiation cystitis Encounter for pre-operative examination History of blood transfusion 11/2022 Hepatocellular carcinoma Spinal fracture of T12 vertebra History of recent hospitalization 06/2023 [facility] hepatic encephalopathy Insulin dependent type 2 diabetes mellitus Liver spots Under surveillance, stable per patient Anxiety and depression 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 Anemia of chronic disease under surveillance Prostate cancer Hx radiation History of panic attacks Gout No current issues GERD (gastroesophageal reflux disease) GAVE (gastric antral vascular ectasia) CKD (chronic kidney disease) stage 3, GFR 30-59 ml/min Hypertension Hx Esophageal varices EGD 05/22/23 ([facility]): Grade 1 varices in distal esophagus without high risk stigmata Upper GI bleed Hx Psoriasis Surgical History History of left cataract surgery History of right cataract surgery History of prostate biopsy malignant S/P TIPS (transjugular intrahepatic portosystemic shunt) History of esophagogastroduodenoscopy (EGD) Most recent 05/2023 [facility] History of colonoscopy with polypectomy History of tonsillectomy and adenoidectomy History of abdominal paracentesis Multiple, most recent 01/2023 Family History Father , "3/4 liver gone due to drinking" Colorectal cancer, Onset Age: 63 Mother Lung cancer Daughter Cancer cervical and thyroid cancers Ovarian cancer Other No family history of adverse response to anesthesia 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 Smoking Status: Never smoker Second Hand Exposure: No; Do You Dip or Chew Tobacco: No; Hx Alcohol Use: No Hx Substance Use: No Preferred Language: Wolof Communication Ability: Effective Visual Impairment: No Limitations Hearing Ability: Normal Napper Grinder Required: No Beliefs That Will Affect Care: None marital status: Current Living Situation: Spouse 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 How many Children do You have: 6 How many Children do You have Comment: one , eldest daughter in her sleep from seizure disorder Other Information That Helps Us Care for You: No Feels Safe at Home: Yes Childhood Exposure to Second-Hand Smoke: Yes Diet Comment: "I watch my sugar, average fasting is 140 mg/dl" caffeine: Yes (cola, sugar free, decaf) during the past year weight has: remained stable Dental Care, Regularly: No Physical Activity Frequency: Does not Exercise Seatbelt Use: always Sunscreen Use: Yes Assistive Devices: Walker Review of Systems Review of Systems: All systems reviewed & are unremarkable except as noted in HPI & below Physical Exam Constitutional: no acute distress Neck: normal visual inspection Respiratory: no respiratory distress and no labored breathing Musculoskeletal: Head/Neck/Chest: normocephalic Skin: Warm and dry Neurologic: moves all extremities and awake Psychiatric: Orientation: alert and cooperative Genitourinary: Dark yellow urine in urinal No suprapubic pain with palpation Results & Data Vital Signs (Past 12 Hours) Vital Signs Temp Pulse Pulse Resp BP BP BP 11/27/23 10:54 36.8 C 64 18 154/76 H 11/27/23 10:39 36.5 C 66 18 146/71 H 11/27/23 10:24 36.6 C 67 18 126/65 11/27/23 08:51 69 11/27/23 08:33 36.6 C 66 19 122/62 11/27/23 02:47 37.1 C 69 19 102/58 L 11/27/23 00:23 11/27/23 00:08 71 11/27/23 00:08 36.7 C 72 16 133/61 Pulse Ox O2 Del Method O2 Flow Rate 11/27/23 10:54 97 11/27/23 10:39 97 11/27/23 10:24 99 0 11/27/23 08:51 11/27/23 08:33 99 Room Air 11/27/23 02:47 98 Room Air 11/27/23 00:23 Room Air 11/27/23 00:08 11/27/23 00:08 97 Room Air PG Care Time/CCT Total # of Minutes Spent Total Time Spent with Patient: Total time spent is greater than 50% in coordination of care (as documented) at patient's floor/unit and/or counseling patient: Coding Level of Care Code 92848 INT INP/OBS CARE 2/55MIN Diagnoses Hematuria R31.9 Radiation cystitis N30.40 Anemia D64.9
--- NOTE | 2023-11-27 13:13 | Pharmacy Report ---
Pharmacy Glycemic Short Note 2 - Date of Service November 27, 2023 - Glycemic Short BSG Results (Last 24 hours): 11/26/23 11/26/23 11/26/23 13:27 18:12 19:16 Glucose 223 H POC Glucose 320 H* 266 H 11/26/23 11/27/23 11/27/23 21:40 05:45 08:41 Glucose 134 H POC Glucose 157 H 146 H 11/27/23 11:14 Glucose POC Glucose 183 H OUTPATIENT ANTIDIABETIC REGIMEN: * Lantus 22 units qPM * A1c 5.3% 11/27/23 ASSESSMENT: * Patient presented with chest pain, hx of prostate cancer with radiation cystitis, 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, CKD, and reports of hematuria/hematochezia. * BSGs initially elevated on admission, trended downward quickly with addition of novolog * Conservative lantus as patient is only on 22 units of lantus daily at home- now split with novolog * Now has a diet ordered will monitor for changes * PLAN FOR INPATIENT GLYCEMIC CONTROL: * Hold outpatient oral diabetes medications * Basal insulin * Lantus 4/8 units SQ BID * Bolus insulin * NovoLog per scale ACHS or Q6hrs while NPO * Goal Range: Low 110 mg/dL - High 140 mg/dL * Correction Factor: 25 mg/dL/unit * Nutritional / Prandial insulin per carb ratio of 1 unit per 9 grams CHO consumed
--- NOTE | 2023-11-27 14:27 | Hospitalist Progress Note ---
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 Hale is a 73 year old male that presented to the ED today with anterior chest pressure that has been occurring over the past 4-5 days that goes away at rest. He has persistent anemia, lightheadedness, and weakness. Reports chest discomfort and palpitations that is 'on and off'. He reports noticing hematuria and hematochezia that are both intermittent. Reports having 2-3 bowel movements typically. States urine is cranberry colored. Denies passing any clots, mild discomfort in the bladder area. No back pain. No fever or chills. No nausea or vomiting. Patient has a very complex medical history that includes: H/O Hepatocellular Carcinoma S/P IR embolization/portal vein thrombus, H/O FOFANA Cirrhosis S/P TIPS, prostate CA s/p radiation 2020, IDDM2, CKD, psoriasis, and depression. In the ED, WBC 3.16, hemoglobin 6.6, platelet 95. Initial troponin 507.8 likely related to ischemic demand rather than ACS. Pt laying in his hospital bed in no apparent distress. He is able to converse and answer questions appropriately. Complex individual with hematuria suspected to be radiation cystitis. With Hgb < 7.0; will transfuse 1 UPRBC and trend H/H Q6 hours. Will administer Lasix after blood transfusion, trend Troponin level, check ammonia level, and consult Urology. With increasing ascites, will order diagnostic/therapeutic paracentesis with GI consult pending culture results. Radiation cystitis: Anemia: Prostate Cancer: acute hematuria x 4-5 days Hgb 6.6; chronic anemia; recent colonoscopy/endoscopy;no rectal bleeding Administer 1 UPRBC in ED followed by Lasix 40 mg IV. 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 Cisse Code Status: Full Code VTE Prophylaxis: Teds and SCDs for now Admission and Anticipated Discharge Date Admission Date: November 26, 2023 Subjective ff up for anemia, etc seen resting in bed, comfortable states he feels fine overall, just tired no chest pain, dyspnea, palpitations, dizziness no abdominal pain hematuria has resolved denies melena, hematochezia no other symptoms Review of Systems Review of Systems: all noted and negative except for above Physical Exam Physical Exam: General- oriented x 3, not in distress, speaks in sentences with no effort or accessory muscle use Eyes- anicteric Neck- no JVD Lungs- clear breath sounds bilaterally, no rales/wheezes Heart- normal rate, regular rhythm; no murmurs Abdomen- normal bowel sounds, protruberant , soft, nontender Extremities- no pretibial edema, no calf tenderness Neuro- alert, oriented x 3; no gross focal neurologic deficits Skin- warm & dry Results & Data Results & Data Vital Signs (Past 12 Hours) Vital Signs Temp Pulse Pulse Resp BP BP BP 11/27/23 12:26 36.7 C 66 18 115/58 L 11/27/23 11:24 36.5 C 65 18 128/66 11/27/23 10:54 36.8 C 64 18 154/76 H 11/27/23 10:39 36.5 C 66 18 146/71 H 11/27/23 10:24 36.6 C 67 18 126/65 11/27/23 08:51 69 11/27/23 08:33 36.6 C 66 19 122/62 11/27/23 02:47 37.1 C 69 19 102/58 L Pulse Ox O2 Del Method O2 Flow Rate 11/27/23 12:26 93 11/27/23 11:24 96 11/27/23 10:54 97 11/27/23 10:39 97 11/27/23 10:24 99 0 11/27/23 08:51 11/27/23 08:33 99 Room Air 11/27/23 02:47 98 Room Air all noted and reviewed including below
[2023-11-27 15:04] LABS: Hemoglobin 8.2 g/dl (14.0-18.0)
[2023-11-28 08:27] LABS: Basophils # (auto) 0.01 K/uL (0.00-0.20); Basophils % (auto) 0.2 %; Eosinophils # (auto) 0.22 K/uL (0.00-0.50); Eosinophils % (auto) 5.5 %; Hemoglobin 7.7 g/dl (14.0-18.0); Immature Granulocytes # (auto) 0.04 K/uL (0.01-0.20); Lymphocytes # (auto) 0.67 K/uL (1.20-3.40); Lymphocytes % (auto) 16.6 %; Mean Corpuscular Hemoglobin 30.3 pg (25.0-34.0); Mean Corpuscular Hgb Conc 32.1 g/dL (32.0-36.0); Mean Corpuscular Volume 94.5 fL (80.0-100.0); Monocytes # (auto) 0.29 K/uL (0.11-0.59); Monocytes % (auto) 7.2 %; Neutrophils % (auto) 69.5 %; Platelet Count 82 K/uL (130-400); RDW Coefficient of Variation 18.8 % (11.5-14.5); RDW Standard Deviation 64.1 fL (36.4-46.3); Red Blood Count 2.54 M/uL (4.70-6.10); White Blood Count 4.03 K/ul (4.8-10.8)
--- NOTE | 2023-11-28 08:33 | Ultrasound Report ---
Ultrasound-guided paracentesis INDICATION: Ascites PROCEDURE: Procedure and risks were explained. Informed consent was obtained. A final timeout was com pleted. The abdomen was prepped and draped in sterile fashion. 1% buffered lidocaine was utilized for skin anesthesia. Utilizing ultrasound guidance, a 5 Indian safety centesis catheter was advanced into the left lower q uadrant pocket of ascites. Ultrasound images were obtained. 2.6L of cloudy yellow ascites fluid was r emoved with 1 L sent to the lab for analysis. The catheter was removed and Band-Aid applied. The ishan ent tolerated the procedure well. Vital signs will be monitored postprocedure. IMPRESSION: Paracentesis as above. Performed, dictated, and signed by Luis Ellis PA-C; to be co-signed by Dr. Elan Alexander. Electronically signed by: Elan Alexander M.D. 11/28/2023 12:20 PM
[2023-11-28 08:48] LABS: Albumin Globulin Ratio 0.8 (0.9-2); Albumin Level 2.7 gm/dl (3.4-5.0); BUN Creatinine Ratio 23.4 (10-20); Bilirubin,Total 4.3 mg/dl (0.2-1.0); Calcium 7.9 mg/dl (8.6-10.3); Creatinine Clr Calc Pharmacy 53.1 ml/min; Est GFR (African American) 63.9 ml/min; Est GFR (Non-African American) 55.2 ml/min; Globulin 3.3 gm/dl (2.5-4.0); Potassium 4.4 mmol/L (3.5-5.1)
[2023-11-28 08:50] LABS: Polychromasia 1+; Tear Drop Cells 1+
[2023-11-28] MEDS: INSULIN ASPART PER UNIT CHARGE SC SCH ×4 (09:01→20:34)
[2023-11-28] MEDS: LANTUS PER UNIT CHARGE SQ SCH ×2 (09:02→20:34)
[2023-11-28] MEDS: ALBUMIN 25% 25 GM/100 ML VIAL IV SCH ×2 (09:28→11:11)
[2023-11-28] MEDS: FINASTERIDE 5 MG TAB PO SCH (09:31)
[2023-11-28] MEDS: PANTOprazole 40 MG TAB PO SCH ×2 (09:31→20:58)
[2023-11-28] MEDS: FERROUS SULFATE 325 MG TAB PO SCH (09:32)
[2023-11-28] MEDS: FUROSEMIDE 40 MG TAB PO SCH (09:32)
[2023-11-28] MEDS: rifAXIMin 550 MG TABLET PO SCH ×2 (09:33→20:58)
[2023-11-28] MEDS: allopurinoL 100 MG TAB PO SCH ×2 (09:33→20:57)
[2023-11-28] MEDS: LACTULOSE SYRUP 10 GM/15 ML BTL 960 ML PO SCH ×2 (09:33→20:36)
[2023-11-28] MEDS: DULoxetine HCL 60 MG CAP PO SCH (09:33)
[2023-11-28 10:03] LABS: Appearance Peritoneal Fluid Cloudy; Color Peritoneal Fluid Yellow; Lymphocytes, Fluid 42 %; Mono,Macrophage,Mesothelial 41 %; Neutrophils, Fluid 17 %; RBC Peritoneal Fluid Auto < 2000 /uL; WBC Peritoneal Fluid Auto 177 /ul (0-300)
--- NOTE | 2023-11-28 11:49 | Cardiology Progress Note ---
Date of Service November 28, 2023 Assessment & Plan (1) Elevated troponin: (2) Demand ischemia: (3) Symptomatic anemia: Plan Complex 73-year-old male with history of prostate cancer status post radiation and cirrhosis with esophageal varices admitted with recurrent symptomatic anemia, hemoglobin 6.6 g/dL. Hemoglobin 7.7 g/dL this morning after receiving 2 units of packed red blood cells on November 26, 2023. Patient with chronic intermittent and active intermittent GI and bleeding. EKG with mild inferolateral ST segment depression with troponin elevation representing demand ischemia secondary to marked symptomatic anemia. Continue conservative noninterventional cardiac medical management. Maintain hemoglobin of at least 8 g/dL Continue chronic furosemide Add statin noting diffuse coronary artery calcification unless contraindicated Patient with contraindications to antiplatelet and anticoagulation therapy Past poor tolerance to beta-jassi therapy noted on chart review. No further cardiac testing/intervention anticipated at this time. Please contact with any questions or concerns. Admission and Anticipated Discharge Date Admission Date: November 26, 2023 Supervising Physician Co-Signing Physician Notes 73-year-old male seen and examined at the bedside. Notes rare, "spasms" involving his chest lasting less than 1 minute. Telemetry feels sinus rhythm in the 60s. Hemoglobin stable status post 2 units packed red blood cell transfusion. PE: VSS. Gen: NAD, awake and alert. Heart: Regular rhythm, normal S1-S2. No murmur. Lungs: Clear bilateral, no rales, rhonchi, wheeze. Extremities: No edema. A/P: Agree with PA-C history, physical exam, assessment and plan. 71-year-old male admitted with symptomatic edema status post transfusion of packed red blood cells. Hemoglobin remains stable. He is not a candidate for percutaneous or surgical revascularization at present given his anemia issues. Contraindications to antiplatelet and anticoagulant therapy. Poor tolerance to beta-jassi documented. Recommend monitor H&H. Maintain hemoglobin at least 8 g/dL. Continue chronic p.o. furosemide. No further cardiac testing or intervention recommended at this time. Please call with any further concerns/questions. Subjective Patient seen and examined. Chart, medications, and telemetry reviewed. Patient notes feeling a little queasy this morning, emesis overnight. Did have brief episode of chest discomfort described as a quick pulse sensation earlier this morning. Breathing okay. No orthopnea or PND. Hemoglobin 7.7 g/dL this morning after receiving 2 units of PRBCs on November 26, 2023 Telemetry: Sinus with occasional PVCs, currently sinus at 63 bpm Resting echocardiography on November 27, 2023 revealed normal size LV with normal wall motion, normal systolic function, EF 55 to 60%. Aortic valve was described as mildly sclerotic, without significant stenosis. Grade 1 diastolic dysfunction observed. No pericardial effusion noted. Mild perihepatic ascites observed. Review of Systems Review of Systems: Complete Review of Systems is as stated above, negative, or noncontributory. Physical Exam Physical Exam: General: A&Ox3. NAD. Skin: Pale. Jaundice. + Rash HENT: Normocephalic. Atraumatic. Eyes: PER. Neck: Transmitted systolic murmur versus bilateral carotid bruits. No JVD. Heart: RRR, 60 bpm. Grade II/ systolic ejection murmur. No diastolic murmur. No rub. Lungs: Clear to auscultation. Abdomen: +BS. Distended. Nontender. Extremities: No clubbing, cyanosis, or significant edema. Limited neurological examination is without focal deficits. Pulses: Posterior tibial=2/4. Results & Data Vital Signs (Past 12 Hours) Vital Signs Temp Pulse Resp BP BP Pulse Ox O2 Del Method 11/28/23 09:25 36.8 C 66 18 119/48 L 95 Room Air 11/28/23 09:04 36.8 C 65 18 124/51 L 95 Room Air 11/28/23 03:00 36.9 C 67 18 122/51 L 95 Room Air Laboratory Results Cardiac Enzymes 11/28/23 Range/Units 08:08 AST 30 (13-39) U/L CBC 11/27/23 11/28/23 Range/Units 14:43 08:08 WBC 4.03 L (4.8-10.8) K/ul RBC 2.54 L (4.70-6.10) M/uL Hgb 8.2 L 7.7 L (14.0-18.0) g/dl Hct 25.0 L 24.0 L (42.0-52.0) % Plt Count 82 L (130-400) K/uL Neut # (Auto) 2.80 (1.40-6.50) K/uL Lymph # (Auto) 0.67 L (1.20-3.40) K/uL Grant # (Auto) 0.29 (0.11-0.59) K/uL Eos # (Auto) 0.22 (0.00-0.50) K/uL Baso # (Auto) 0.01 (0.00-0.20) K/uL Comprehensive Metabolic Panel 11/28/23 Range/Units 08:08 Sodium 142 (136-145) mmol/L Potassium 4.4 (3.5-5.1) mmol/L Chloride 112 H (98-107) mmol/L Carbon Dioxide 26 (21-32) mmol/L BUN 30 H (6-23) mg/dl Creatinine 1.28 (0.6-1.4) mg/dl Glucose 144 H (70-99(Fasting)) mg/dl Calcium 7.9 L (8.6-10.3) mg/dl AST 30 (13-39) U/L ALT 15 (7-52) U/L Alkaline Phosphatase 147 H (34-104) U/L Total Protein 6.0 (6.0-8.3) gm/dl Albumin 2.7 L (3.4-5.0) gm/dl Intake and Output 11/27/23 11/28/23 11/28/23 22:59 06:59 14:59 Intake Total 780 / 1207 150 / 1207 85.833 / 85.833 Output Total 1270 / 1621 151 / 1621 175 / 175 Balance -490 / -414 -1 / -414 -89.167 / -89.167 Intake: IV 85.833 / 85.833 Albumin 25% 25 gm In 100 ml @ 85.833 / 85.833 50 mls/hr IV Q2H [facility] Rx#: [id number] Oral 780 / 930 150 / 930 Output: Urine 1270 / 1620 150 / 1620 175 / 175 # Bowel Movements Other: Other Intake Source Sips # Unmeasured Voids 1 Weight 81.5 kg Weight Measurement Method Built in [facility]
[2023-11-28] MEDS ORDERED: METOCLOPRAMIDE HCL INJ 5 MG/ML 2 ML VIAL IV SCH (15:15)
[2023-11-28] MEDS ORDERED: SODIUM CHLORIDE 0.9% 500 ML IV ONE (16:17)
[2023-11-28] MEDS ORDERED: METOCLOPRAMIDE HCL INJ 5 MG/ML 2 ML VIAL IV PRN (16:20)
[2023-11-28] MEDS ORDERED: SODIUM CHLORIDE 0.9% 1,000 ML IV SCH (16:30)
--- NOTE | 2023-11-28 17:57 | Hospitalist Progress Note ---
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 Hale is a 73 year old male that presented to the ED today with anterior chest pressure that has been occurring over the past 4-5 days that goes away at rest. He has persistent anemia, lightheadedness, and weakness. Reports chest discomfort and palpitations that is 'on and off'. He reports noticing hematuria and hematochezia that are both intermittent. Reports having 2-3 bowel movements typically. States urine is cranberry colored. Denies passing any clots, mild discomfort in the bladder area. No back pain. No fever or chills. No nausea or vomiting. Patient has a very complex medical history that includes: H/O Hepatocellular Carcinoma S/P IR embolization/portal vein thrombus, H/O FOFANA Cirrhosis S/P TIPS, prostate CA s/p radiation 2020, IDDM2, CKD, psoriasis, and depression. In the ED, WBC 3.16, hemoglobin 6.6, platelet 95. Initial troponin 507.8 likely related to ischemic demand rather than ACS. Pt laying in his hospital bed in no apparent distress. He is able to converse and answer questions appropriately. Complex individual with hematuria suspected to be radiation cystitis. With Hgb < 7.0; will transfuse 1 UPRBC and trend H/H Q6 hours. Will administer Lasix after blood transfusion, trend Troponin level, check ammonia level, and consult Urology. With increasing ascites, will order diagnostic/therapeutic paracentesis with GI consult pending culture results. Radiation cystitis: Anemia: Prostate Cancer: acute hematuria x 4-5 days Hgb 6.6; chronic anemia; recent colonoscopy/endoscopy;no rectal bleeding Administer 1 UPRBC in ED followed by Lasix 40 mg IV. Type and Cross done;consent done in ED S/P prostate radiation 2020 Continue Proscar Consult Urology 11/27 Acute Blood Loss anemia, likely secondary to above Hg still at 6.6 2nd unit pRBC ordered repeat Hg this afternoon hematuria resolved no procedures per Urology 11/28 Hemoglobin 7.7 No recurrence of bleeding Repeat hemoglobin tomorrow Dizziness Likely from hypovolemia BP on the lower side than baseline Hold Lasix, IV fluids ordered Monitor closely Atypical chest pain: Initial Troponin 507.8; trend x1 Do not suspect ACS, rather ischemic demand no current chest pain no ischemia on ECG no ectopy or e-lyte abnormalities Received 250mL NSB Last ECHO 01/24: EF 60%, GIIDDx, mild MR/TR and mild pHTN 11/28 Director Of Recruitment And Admissions consulted no further intervention for now 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 Cisse Code Status: Full Code VTE Prophylaxis: Teds and SCDs for now Admission and Anticipated Discharge Date Admission Date: November 26, 2023 Subjective Follow-up for anemia, etc. Seen resting in bed, comfortable, no distress States he feels dizzy today, feels the room is spinning, improving but still present Denies abdominal pain, melena or hematochezia, hematuria No other new symptom Review of Systems Review of Systems: all noted and negative except for above Physical Exam Physical Exam: General- oriented x 3, not in distress, speaks in sentences with no effort or accessory muscle use Eyes- anicteric Neck- no JVD Lungs- clear breath sounds bilaterally, no rales/wheezes Heart- normal rate, regular rhythm; no murmurs Abdomen- normal bowel sounds, nondistended, soft, nontender Extremities- no pretibial edema, no calf tenderness Neuro- alert, oriented x 3; no gross focal neurologic deficits Skin- warm & dry Results & Data Results & Data Vital Signs (Past 12 Hours) Vital Signs Temp Pulse Pulse Resp BP BP Pulse Ox 11/28/23 15:11 36.7 C 65 16 108/46 L 97 11/28/23 13:09 67 11/28/23 09:25 36.8 C 66 18 119/48 L 95 11/28/23 09:04 36.8 C 65 18 124/51 L 95 O2 Del Method 11/28/23 15:11 Room Air 11/28/23 13:09 11/28/23 09:25 Room Air 11/28/23 09:04 Room Air all noted and reviewed including below
[2023-11-29 07:22] LABS: Basophils # (auto) 0.01 K/uL (0.00-0.20); Basophils % (auto) 0.3 %; Eosinophils # (auto) 0.24 K/uL (0.00-0.50); Eosinophils % (auto) 7.4 %; Hematocrit (blood only) 21.9 % (42.0-52.0); Hemoglobin 7.1 g/dl (14.0-18.0); Immature Granulocytes # (auto) 0.05 K/uL (0.01-0.20); Immature Granulocytes % (auto) 1.5 %; Lymphocytes # (auto) 0.65 K/uL (1.20-3.40); Mean Corpuscular Hemoglobin 30.6 pg (25.0-34.0); Mean Corpuscular Hgb Conc 32.4 g/dL (32.0-36.0); Mean Corpuscular Volume 94.4 fL (80.0-100.0); Mean Platelet Volume 12.5 fL (9.4-12.4); Monocytes % (auto) 6.2 %; Neutrophils % (auto) 64.6 %; Platelet Count 68 K/uL (130-400); RDW Coefficient of Variation 17.8 % (11.5-14.5); RDW Standard Deviation 60.8 fL (36.4-46.3); Red Blood Count 2.32 M/uL (4.70-6.10); White Blood Count 3.25 K/ul (4.8-10.8)
[2023-11-29 07:38] LABS: Albumin Level 2.9 gm/dl (3.4-5.0); Calcium 7.9 mg/dl (8.6-10.3); Creatinine Clr Calc Pharmacy 48.5 ml/min; Est GFR (African American) 57.4 ml/min; Est GFR (Non-African American) 49.5 ml/min; Globulin 2.9 gm/dl (2.5-4.0); Total Protein 5.8 gm/dl (6.0-8.3)
[2023-11-29 07:51] LABS: Polychromasia 1+; Tear Drop Cells 1+
[2023-11-29] MEDS: INSULIN ASPART PER UNIT CHARGE SC SCH ×4 (08:15→20:42)
[2023-11-29] MEDS: LANTUS PER UNIT CHARGE SQ SCH ×2 (08:16→20:41)
[2023-11-29] MEDS: allopurinoL 100 MG TAB PO SCH ×2 (08:20→20:40)
[2023-11-29] MEDS: FERROUS SULFATE 325 MG TAB PO SCH (08:21)
[2023-11-29] MEDS: LACTULOSE SYRUP 10 GM/15 ML BTL 960 ML PO SCH ×2 (08:21→20:41)
[2023-11-29] MEDS: DULoxetine HCL 60 MG CAP PO SCH (08:21)
[2023-11-29] MEDS: FINASTERIDE 5 MG TAB PO SCH (08:21)
[2023-11-29] MEDS: rifAXIMin 550 MG TABLET PO SCH ×2 (08:22→20:41)
[2023-11-29] MEDS: PANTOprazole 40 MG TAB PO SCH ×2 (08:22→20:41)
--- NOTE | 2023-11-29 12:23 | Pharmacy Report ---
Pharmacy Glycemic Short Note 2 - Date of Service November 29, 2023 - Glycemic Short BSG Results (Last 24 hours): 11/28/23 11/28/23 11/29/23 16:34 20:11 07:05 Glucose 126 H POC Glucose 161 H 169 H 11/29/23 11/29/23 07:14 10:53 Glucose POC Glucose 140 H 177 H OUTPATIENT ANTIDIABETIC REGIMEN: * Lantus 22 units qPM * A1c 5.3% 11/27/23 ASSESSMENT: 11/29: * BSGs [phone]/dL the last 24h. Received 16 units of basal and 13 units of bolus insulin yesterday. * Tolerating diet, other stressors stable. * No change to basal or bolus insulin- Continue Lantus BID per scale for now. 11/27: * Patient presented with chest pain, hx of prostate cancer with radiation cystitis, 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, CKD, and reports of hematuria/hematochezia. * BSGs initially elevated on admission, trended downward quickly with addition of novolog * Conservative lantus as patient is only on 22 units of lantus daily at home- now split with novolog * Now has a diet ordered will monitor for changes PLAN FOR INPATIENT GLYCEMIC CONTROL: * Hold outpatient oral diabetes medications * Basal insulin * Lantus 4/8 units SQ BID * Bolus insulin * NovoLog per scale ACHS or Q6hrs while NPO * Goal Range: Low 110 mg/dL - High 140 mg/dL * Correction Factor: 25 mg/dL/unit * Nutritional / Prandial insulin per carb ratio of 1 unit per 9 grams CHO consumed
--- NOTE | 2023-11-29 16:12 | Hospitalist Progress Note ---
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 Hale is a 73 year old male that presented to the ED today with anterior chest pressure that has been occurring over the past 4-5 days that goes away at rest. He has persistent anemia, lightheadedness, and weakness. Reports chest discomfort and palpitations that is 'on and off'. He reports noticing hematuria and hematochezia that are both intermittent. Reports having 2-3 bowel movements typically. States urine is cranberry colored. Denies passing any clots, mild discomfort in the bladder area. No back pain. No fever or chills. No nausea or vomiting. Patient has a very complex medical history that includes: H/O Hepatocellular Carcinoma S/P IR embolization/portal vein thrombus, H/O FOFANA Cirrhosis S/P TIPS, prostate CA s/p radiation 2020, IDDM2, CKD, psoriasis, and depression. In the ED, WBC 3.16, hemoglobin 6.6, platelet 95. Initial troponin 507.8 likely related to ischemic demand rather than ACS. Pt laying in his hospital bed in no apparent distress. He is able to converse and answer questions appropriately. Complex individual with hematuria suspected to be radiation cystitis. With Hgb < 7.0; will transfuse 1 UPRBC and trend H/H Q6 hours. Will administer Lasix after blood transfusion, trend Troponin level, check ammonia level, and consult Urology. With increasing ascites, will order diagnostic/therapeutic paracentesis with GI consult pending culture results. Radiation cystitis: Anemia: Prostate Cancer: acute hematuria x 4-5 days Hgb 6.6; chronic anemia; recent colonoscopy/endoscopy;no rectal bleeding Administer 1 UPRBC in ED followed by Lasix 40 mg IV. Type and Cross done;consent done in ED S/P prostate radiation 2020 Continue Proscar Consult Urology 11/27 Acute Blood Loss anemia, likely secondary to above Hg still at 6.6 2nd unit pRBC ordered repeat Hg this afternoon hematuria resolved no procedures per Urology 11/28 Hemoglobin 7.7 No recurrence of bleeding Repeat hemoglobin tomorrow 11/29 Hemoglobin 7.1 No signs of active bleeding Repeat hemoglobin tomorrow Dizziness Likely from hypovolemia BP on the lower side than baseline Hold Lasix, IV fluids ordered Monitor closely Resolved Hold Lasix for now Monitor blood pressure Atypical chest pain: Initial Troponin 507.8; trend x1 Do not suspect ACS, rather ischemic demand no current chest pain no ischemia on ECG no ectopy or e-lyte abnormalities Received 250mL NSB Last ECHO 01/24: EF 60%, GIIDDx, mild MR/TR and mild pHTN 11/29 Radar Scientist consulted no further intervention for now 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: Chronic Takes Kristalose; continue Slightly wifty on exam; check ammonia level Takes rifaximin; continue (+) ascites; ordered diagnostic/therapeutic paracentesis Based on culture results consider GI consult 11/29 Status post paracentesis draining 2 L Received albumin after Compensated Insulin dependent Diabetes: Chronic Takes Lantus; obtain SSI ACHS while inpatient Glycemic pharmacy consult A1C in AM: 5.3 Psoriasis: chronic does not follow with Rheum or Derm Takes triamcinolone; continue CKD: Chronic Serum creatinine 1.2; will trend Depression: Chronic Takes Cymbalta;continue Disposition: PCP: Dr. Cisse Code Status: Full Code VTE Prophylaxis: Teds and SCDs for now Admission and Anticipated Discharge Date Admission Date: November 26, 2023 Subjective Follow-up for anemia, etc. Seen resting in bed, comfortable, not in distress States dizziness has resolved Feels okay overall No abdominal pain, melena or hematochezia, no hematuria No other new symptoms Review of Systems Review of Systems: all noted and negative except for above Physical Exam Physical Exam: General- oriented x 3, not in distress, speaks in sentences with no effort or accessory muscle use Eyes- anicteric Neck- no JVD Lungs- clear breath sounds bilaterally, no rales/wheezes Heart- normal rate, regular rhythm; no murmurs Abdomen- normal bowel sounds, nondistended, soft, nontender Extremities- no pretibial edema, no calf tenderness Neuro- alert, oriented x 3; no gross focal neurologic deficits Skin- warm & dry Results & Data Results & Data Vital Signs (Past 12 Hours) Vital Signs Temp Pulse Pulse Resp BP Pulse Ox O2 Del Method 11/29/23 16:00 67 11/29/23 14:54 37.1 C 68 18 99/56 L 95 Room Air 11/29/23 12:11 37.1 C 62 18 116/46 L 92 Room Air 11/29/23 09:00 Room Air 11/29/23 08:00 62 11/29/23 07:56 66 18 116/42 L 95 Room Air all noted and reviewed including below
[2023-11-29] MEDS: SODIUM CHLORIDE 0.9% 1,000 ML IV SCH (17:01)
[2023-11-29 23:30] VITALS: TEMP 98.6
[2023-11-30 06:16] LABS: Basophils # (auto) 0.02 K/uL (0.00-0.20); Basophils % (auto) 0.6 %; Eosinophils # (auto) 0.22 K/uL (0.00-0.50); Eosinophils % (auto) 6.9 %; Hematocrit (blood only) 22.4 % (42.0-52.0); Hemoglobin 7.3 g/dl (14.0-18.0); Immature Granulocytes # (auto) 0.03 K/uL (0.01-0.20); Immature Granulocytes % (auto) 0.9 %; Lymphocytes # (auto) 0.67 K/uL (1.20-3.40); Lymphocytes % (auto) 21.1 %; Mean Corpuscular Hemoglobin 31.5 pg (25.0-34.0); Mean Corpuscular Hgb Conc 32.6 g/dL (32.0-36.0); Mean Corpuscular Volume 96.6 fL (80.0-100.0); Mean Platelet Volume 11.4 fL (9.4-12.4); Monocytes # (auto) 0.22 K/uL (0.11-0.59); Monocytes % (auto) 6.9 %; Neutrophils # (auto) 2.02 K/uL (1.40-6.50); Neutrophils % (auto) 63.6 %; Nucleated RBC # (auto) 0.03 K/uL (0.00-0.12); Nucleated RBC % (auto) 0.9 %; Platelet Count 60 K/uL (130-400); RDW Coefficient of Variation 17.4 % (11.5-14.5); RDW Standard Deviation 60.4 fL (36.4-46.3); Red Blood Count 2.32 M/uL (4.70-6.10); White Blood Count 3.18 K/ul (4.8-10.8)
[2023-11-30 06:31] LABS: Albumin Level 2.8 gm/dl (3.4-5.0); BUN Creatinine Ratio 20.3 (10-20); Bilirubin,Total 3.3 mg/dl (0.2-1.0); Calcium 7.9 mg/dl (8.6-10.3); Creatinine Clr Calc Pharmacy 47.5 ml/min; Est GFR (African American) 55.9 ml/min; Est GFR (Non-African American) 48.2 ml/min; Globulin 2.9 gm/dl (2.5-4.0); Potassium 4.2 mmol/L (3.5-5.1); Total Protein 5.7 gm/dl (6.0-8.3)
[2023-11-30 06:32] LABS: Ovalocytes 1+; Polychromasia 2+; Tear Drop Cells 2+
[2023-11-30] MEDS: SODIUM CHLORIDE 0.9% 1,000 ML IV SCH (08:54)
[2023-11-30] MEDS: LANTUS PER UNIT CHARGE SQ SCH (08:55)
[2023-11-30] MEDS: INSULIN ASPART PER UNIT CHARGE SC SCH ×2 (08:56→12:09)
[2023-11-30] MEDS: LACTULOSE SYRUP 10 GM/15 ML BTL 960 ML PO SCH (08:57)
[2023-11-30] MEDS: rifAXIMin 550 MG TABLET PO SCH (08:57)
[2023-11-30] MEDS: PANTOprazole 40 MG TAB PO SCH (08:57)
[2023-11-30] MEDS: allopurinoL 100 MG TAB PO SCH (09:00)
[2023-11-30] MEDS: DULoxetine HCL 60 MG CAP PO SCH (09:01)
[2023-11-30] MEDS: FINASTERIDE 5 MG TAB PO SCH (09:01)
[2023-11-30] MEDS: FERROUS SULFATE 325 MG TAB PO SCH (09:01)
[2023-11-30 15:28] VITALS: BP 112/43; PULSE 63; RESP 17; O2SAT 94
--- NOTE | 2023-11-30 18:05 | Hospitalist Progress Note ---
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 Hale is a 73 year old male that presented to the ED today with anterior chest pressure that has been occurring over the past 4-5 days that goes away at rest. He has persistent anemia, lightheadedness, and weakness. Reports chest discomfort and palpitations that is 'on and off'. He reports noticing hematuria and hematochezia that are both intermittent. Reports having 2-3 bowel movements typically. States urine is cranberry colored. Denies passing any clots, mild discomfort in the bladder area. No back pain. No fever or chills. No nausea or vomiting. Patient has a very complex medical history that includes: H/O Hepatocellular Carcinoma S/P IR embolization/portal vein thrombus, H/O FOFANA Cirrhosis S/P TIPS, prostate CA s/p radiation 2020, IDDM2, CKD, psoriasis, and depression. In the ED, WBC 3.16, hemoglobin 6.6, platelet 95. Initial troponin 507.8 likely related to ischemic demand rather than ACS. Pt laying in his hospital bed in no apparent distress. He is able to converse and answer questions appropriately. Complex individual with hematuria suspected to be radiation cystitis. With Hgb < 7.0; will transfuse 1 UPRBC and trend H/H Q6 hours. Will administer Lasix after blood transfusion, trend Troponin level, check ammonia level, and consult Urology. With increasing ascites, will order diagnostic/therapeutic paracentesis with GI consult pending culture results. Radiation cystitis: Anemia: Prostate Cancer: acute hematuria x 4-5 days Hgb 6.6; chronic anemia; recent colonoscopy/endoscopy;no rectal bleeding Administer 1 UPRBC in ED followed by Lasix 40 mg IV. Type and Cross done;consent done in ED S/P prostate radiation 2020 Continue Proscar Consult Urology Acute Blood Loss anemia, likely secondary to above Hg still at 6.6 2nd unit pRBC ordered repeat Hg this afternoon hematuria resolved no procedures per Urology Hemoglobin remained stable around 7's No recurrence of bleeding Repeat CBC on follow-up with primary care physician in 1 week Dizziness Likely from hypovolemia BP on the lower side than baseline Lasix held, given IV fluids BP improved, dizziness resolved Atypical chest pain: Initial Troponin 507.8; trend x1 Do not suspect ACS, rather ischemic demand no current chest pain no ischemia on ECG no ectopy or e-lyte abnormalities Received 250mL NSB Last ECHO 01/24: EF 60%, GIIDDx, mild MR/TR and mild pHTN 11/30 Proposal Consultant consulted no further intervention recommended 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 Seen resting in bed, comfortable, in good spirits States he feels better overall Dizziness resolved No abdominal pain, hematuria, hematochezia or melena States he is ready for discharge today Review of Systems Review of Systems: all noted and negative except for above Physical Exam Physical Exam: General- oriented x 3, not in distress, speaks in sentences with no effort or accessory muscle use Eyes- anicteric Neck- no JVD Lungs- clear breath sounds bilaterally, no rales/wheezes Heart- normal rate, regular rhythm; no murmurs Abdomen- normal bowel sounds, nondistended, soft, nontender Extremities- no pretibial edema, no calf tenderness Neuro- alert, oriented x 3; no gross focal neurologic deficits Skin- warm & dry Results & Data Results & Data Vital Signs (Past 12 Hours) Vital Signs Temp Pulse Pulse Resp BP BP Pulse Ox 11/30/23 15:26 37.0 C 63 17 112/43 L 130/59 L 94 11/30/23 15:24 67 18 127/60 96 11/30/23 15:23 67 11/30/23 11:17 37.0 C 63 17 112/43 L 94 11/30/23 08:07 37.0 C 65 109/41 L 93 11/30/23 08:05 62 O2 Del Method 11/30/23 15:26 11/30/23 15:24 Room Air 11/30/23 15:23 11/30/23 11:17 Room Air 11/30/23 08:07 Room Air 11/30/23 08:05 all noted and reviewed including below
--- NOTE | 2023-11-30 18:06 | Discharge Summary ---
Discharge Summary Date of Service November 30, 2023 Notes For Next Care Provider Medication Changes From Visit None Admission HPI Per Admitting Provider Mr. Hale is a 73 year old male that presented to the ED today with anterior chest pressure that has been occurring over the past 4-5 days that goes away at rest. He has persistent anemia, lightheadedness, and weakness. Reports chest discomfort and palpitations that is 'on and off'. He reports noticing hematuria and hematochezia that are both intermittent. Reports having 2-3 bowel movements typically. States urine is cranberry colored. Denies passing any clots, mild discomfort in the bladder area. No back pain. No fever or chills. No nausea or vomiting. Patient has a very complex medical history that includes: H /O Hepatocellular Carcinoma S/P IR embolization/portal vein thrombus, H/O FOFANA Cirrhosis S/P TIPS, prostate CA s/p radiation 2020, IDDM2, CKD, psoriasis, and depression. In the ED, WBC 3.16, hemoglobin 6.6, platelet 95. Initial troponin 507.8 likely related to ischemic demand rather than ACS. Pt laying in his hospital bed in no apparent distress. He is able to converse and answer questions appropriately. Complex individual with hematuria suspected to be radiation cystitis. With Hgb < 7.0; will transfuse 1 UPRBC and trend H/H Q6 hours. Will administer Lasix after blood transfusion, trend Troponin level, check ammonia level, and consult Urology. With increasing ascites, will order diagnostic/therapeutic paracentesis with GI consult pending culture results. Patient will be admitted for further evaluation and management. Please see A/P for further details. Admission Exam Per Admitting Provider Neuro: AAOx4, PERRLA, no aphagia, memory changes, CNII-XII grossly intact HEENT: head normocephalic, moist mucus membranes CV: S1/S2, (-) M/G/R, (-) edema, cap refill < 3 seconds Resp: Lungs CTA in all brand. On RA GI: Abdomen S/NT/ND, Ax4 bowel sounds, (-) CVA tenderness Musculoskeletal: 5/5 B/L UE strength, 5/5 B/L LE strength. No gait disturbance Skin: (-) rashes , (-) erythema. 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 Hale is a 73 year old male that presented to the ED today with anterior chest pressure that has been occurring over the past 4-5 days that goes away at rest. He has persistent anemia, lightheadedness, and weakness. Reports chest discomfort and palpitations that is 'on and off'. He reports noticing hematuria and hematochezia that are both intermittent. Reports having 2-3 bowel movements typically. States urine is cranberry colored. Denies passing any clots, mild discomfort in the bladder area. No back pain. No fever or chills. No nausea or vomiting. Patient has a very complex medical history that includes: H/O Hepatocellular Carcinoma S/P IR embolization/portal vein thrombus, H/O FOFANA Cirrhosis S/P TIPS, prostate CA s/p radiation 2020, IDDM2, CKD, psoriasis, and depression. In the ED, WBC 3.16, hemoglobin 6.6, platelet 95. Initial troponin 507.8 likely related to ischemic demand rather than ACS. Pt laying in his hospital bed in no apparent distress. He is able to converse and answer questions appropriately. Complex individual with hematuria suspected to be radiation cystitis. With Hgb < 7.0; will transfuse 1 UPRBC and trend H/H Q6 hours. Will administer Lasix after blood transfusion, trend Troponin level, check ammonia level, and consult Urology. With increasing ascites, will order diagnostic/therapeutic paracentesis with GI consult pending culture results. Radiation cystitis: Anemia: Prostate Cancer: acute hematuria x 4-5 days Hgb 6.6; chronic anemia; recent colonoscopy/endoscopy;no rectal bleeding Administer 1 UPRBC in ED followed by Lasix 40 mg IV. Type and Cross done;consent done in ED S/P prostate radiation 2020 Continue Proscar Consult Urology Acute Blood Loss anemia, likely secondary to above Hg still at 6.6 2nd unit pRBC ordered repeat Hg this afternoon hematuria resolved no procedures per Urology Hemoglobin remained stable around 7's No recurrence of bleeding Repeat CBC on follow-up with primary care physician in 1 week Dizziness Likely from hypovolemia BP on the lower side than baseline Lasix held, given IV fluids BP improved, dizziness resolved Atypical chest pain: Initial Troponin 507.8; trend x1 Do not suspect ACS, rather ischemic demand no current chest pain no ischemia on ECG no ectopy or e-lyte abnormalities Received 250mL NSB Last ECHO 01/24: EF 60%, GIIDDx, mild MR/TR and mild pHTN 11/30 Pediatric Urologist consulted no further intervention recommended 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: Chronic Status post paracentesis draining 2 L Received albumin after Compensated Continue usual regimen Insulin dependent Diabetes: Chronic Takes Lantus; obtain SSI ACHS while inpatient Glycemic pharmacy consult A1C in AM: 5.3 Psoriasis: chronic does not follow with Rheum or Derm Takes triamcinolone; continue CKD: Chronic Serum creatinine 1.2; will trend Depression: Chronic Takes Cymbalta;continue Disposition: Discharge to home PCP follow-up in 1 week Discharge Exam General- oriented x 3, not in distress, speaks in sentences with no effort or accessory muscle use Eyes- anicteric Neck- no JVD Lungs- clear breath sounds bilaterally, no rales/wheezes Heart- normal rate, regular rhythm; no murmurs Abdomen- normal bowel sounds, nondistended, soft, nontender Extremities- no pretibial edema, no calf tenderness Neuro- alert, oriented x 3; no gross focal neurologic deficits Skin- warm & dry Updated Medication List Medication Instructions Recorded Confirmed Type allopurinol 100 mg tablet 200 mg PO BID 05/16/20 11/26/23 History finasteride 5 mg tablet 5 mg PO QAM 11/03/21 11/26/23 History furosemide 20 mg tablet (Lasix) 40 mg PO QAM 11/02/22 11/26/23 History insulin glargine 100 unit/mL 22 unit subcut DAILY 11/05/22 11/26/23 History subcutaneous solution (Lantus U-100 Insulin) acetaminophen 325 mg tablet 650 mg PO Q8H PRN Pain 02/24/23 11/26/23 History (Tylenol) triamcinolone acetonide 0.1 % 1 applic topical BID PRN PSORIATIC 02/24/23 11/26/23 History topical cream LESIONS WHEN NEEDED pantoprazole 40 mg tablet,delayed 40 mg PO BID 90 days #180 tabs 02/28/23 11/26/23 Rx release Lactobacil.acidophilus-Bifido.animalis 1 cap PO QAM 05/17/23 11/26/23 History 5 billion cell sprinkle capsule (Probiotic) acetylcysteine 600 mg capsule 600 mg PO QAM 05/17/23 11/26/23 History ferrous sulfate 325 mg (65 mg 325 mg PO QAM 05/17/23 11/26/23 History iron) tablet (iron) lioyrcjqxpgf-res-tsipi acid-vit 1 tab PO DAILY 05/17/23 11/26/23 History K-lycop 400 mcg-20 mcg-370 mcg tablet (Men's 50 Plus Multivitamin) rifaximin 550 mg tablet (Xifaxan) 550 mg PO BID 05/17/23 11/26/23 History baclofen 5 mg tablet 5 mg PO AMPM PRN Spasms 07/24/23 11/26/23 History duloxetine 60 mg capsule,delayed 60 mg PO DAILY 09/21/23 11/26/23 History release (Cymbalta) metoclopramide HCl 5 mg tablet 5 mg PO TID PRN Nausea 09/21/23 11/26/23 History mirtazapine 30 mg tablet (Remeron) 30 mg PO HS 09/21/23 11/26/23 History lactulose 10 gram oral packet 10 g PO BID #15 ea 09/23/23 11/26/23 Rx (Kristalose) Hospital Stay Data Consultations 11/26/23 15:22 ED Decision to Admit Stat 11/26/23 16:18 Consult Urology Routine 11/26/23 18:12 Consult Cardiology Routine Diagnostic Imagining Performed Laboratory Results WBC 3.18 K/ul (4.8-10.8) L 11/30/23 06:04 RBC 2.32 M/uL (4.70-6.10) L 11/30/23 06:04 Hgb 7.3 g/dl (14.0-18.0) L 11/30/23 06:04 Hct 22.4 % (42.0-52.0) L 11/30/23 06:04 MCV 96.6 fL (80.0-100.0) 11/30/23 06:04 MCH 31.5 pg (25.0-34.0) 11/30/23 06:04 MCHC 32.6 g/dL (32.0-36.0) 11/30/23 06:04 RDW Std Deviation 60.4 fL (36.4-46.3) H 11/30/23 06:04 RDW Coeff of [place] 17.4 % (11.5-14.5) H 11/30/23 06:04 Plt Count 60 K/uL (130-400) L 11/30/23 06:04 MPV 11.4 fL (9.4-12.4) 11/30/23 06:04 Immature Gran % (Auto) 0.9 % 11/30/23 06:04 Neut % (Auto) 63.6 % 11/30/23 06:04 Lymph % (Auto) 21.1 % 11/30/23 06:04 [place] % (Auto) 6.9 % 11/30/23 06:04 Eos % (Auto) 6.9 % 11/30/23 06:04 Baso % (Auto) 0.6 % 11/30/23 06:04 Neut # (Auto) 2.02 K/uL (1.40-6.50) 11/30/23 06:04 Lymph # (Auto) 0.67 K/uL (1.20-3.40) L 11/30/23 06:04 [place] # (Auto) 0.22 K/uL (0.11-0.59) 11/30/23 06:04 Eos # (Auto) 0.22 K/uL (0.00-0.50) 11/30/23 06:04 Baso # (Auto) 0.02 K/uL (0.00-0.20) 11/30/23 06:04 Immature Gran # (Auto) 0.03 K/uL (0.01-0.20) 11/30/23 06:04 Absolute Nucleated RBC 0.03 K/uL (0.00-0.12) 11/30/23 06:04 Nucleated RBC % (auto) 0.9 % 11/30/23 06:04 Polychromasia 2+ 11/30/23 06:04 Tear Drop Cells 2+ 11/30/23 06:04 Ovalocytes 1+ 11/30/23 06:04 PT 11.9 Seconds (9.0-12.0) 11/26/23 13:27 INR 1.1 (0.9-1.1) 11/26/23 13:27 APTT 22 Seconds (21-31) 11/26/23 13:27 PTT Ratio 0.8 11/26/23 13:27 Sodium 142 mmol/L (136-145) 11/30/23 06:04 Potassium 4.2 mmol/L (3.5-5.1) 11/30/23 06:04 Chloride 112 mmol/L (98-107) H 11/30/23 06:04 Carbon Dioxide 24 mmol/L (21-32) 11/30/23 06:04 Anion Gap 6 (3-11) 11/30/23 06:04 BUN 29 mg/dl (6-23) H 11/30/23 06:04 Creatinine 1.43 mg/dl (0.6-1.4) H 11/30/23 06:04 Est Cr Clr Drug Dosing 47.5 ml/min 11/30/23 06:04 Est GFR ( Amer) 55.9 ml/min 11/30/23 06:04 Est GFR (Non-Af Amer) 48.2 ml/min 11/30/23 06:04 BUN/Creatinine Ratio 20.3 (10-20) H 11/30/23 06:04 Glucose 112 mg/dl (70-99(Fasting)) H 11/30/23 06:04 POC Glucose 176 mg/dl (70-99) H 11/30/23 10:59 Estimat Average Glucose 105 mg/dl 11/27/23 05:45 Hemoglobin A1c 5.3 % (4.5-5.6) 11/27/23 05:45 Calcium 7.9 mg/dl (8.6-10.3) L 11/30/23 06:04 Magnesium 1.5 mg/dl (1.7-2.4) L 11/27/23 05:45 Ferritin 15.2 ng/ml (8-388) 11/26/23 13:27 Total Bilirubin 3.3 mg/dl (0.2-1.0) H 11/30/23 06:04 AST 29 U/L (13-39) 11/30/23 06:04 ALT 13 U/L (7-52) 11/30/23 06:04 Alkaline Phosphatase 137 U/L (34-104) H 11/30/23 06:04 Ammonia 63.0 umol/L (18-72) 11/26/23 20:51 Troponin I High Sens 654.0 pg/ml (0-20) H* D 11/26/23 20:51 Total Protein 5.7 gm/dl (6.0-8.3) L 11/30/23 06:04 Albumin 2.8 gm/dl (3.4-5.0) L 11/30/23 06:04 Globulin 2.9 gm/dl (2.5-4.0) 11/30/23 06:04 Albumin/Globulin Ratio 1.0 (0.9-2) 11/30/23 06:04 Urine Color Yellow 11/26/23 16:37 Urine Appearance Clear (Clear) 11/26/23 16:37 Urine pH 5.0 (4.5-7.5) 11/26/23 16:37 Ur Specific [place] 1.021 (1.000-1.030) 11/26/23 16:37 Urine Protein Negative (Negative) 11/26/23 16:37 Urine Glucose (UA) 1+ (Negative) H 11/26/23 16:37 Urine Ketones Negative (Negative) 11/26/23 16:37 Urine Blood 3+ (Negative) H 11/26/23 16:37 Urine Nitrite Negative (Negative) 11/26/23 16:37 Urine Bilirubin Negative (Negative) 11/26/23 16:37 Urine Urobilinogen Negative (Negative) 11/26/23 16:37 Ur Leukocyte Esterase Trace (Negative) H 11/26/23 16:37 Urine WBC (Auto) 1-5 /hpf (0-5) 11/26/23 16:37 Urine RBC (Auto) >30 /hpf (0-4) H 11/26/23 16:37 U Hyaline Cast (Auto) 1-5 /lpf (0-5) 11/26/23 16:37 U Epithel Cells (Auto) 0-5 /lpf (0-5) 11/26/23 16:37 Urine Bacteria (Auto) Negative (Negative) 11/26/23 16:37 Fluid Neutrophils % 17 % 11/28/23 08:18 Fluid Lymphocytes % 42 % 11/28/23 08:18 Fluid [place] % 41 % 11/28/23 08:18 Fluid Comment 11/28/23 08:18 Peritoneal Color Yellow 11/28/23 08:18 Peritoneal Appearance Cloudy 11/28/23 08:18 Peritoneal WBC (Auto) 177 /ul (0-300) 11/28/23 08:18 Peritoneal RBC (Auto) < 2000 /uL 11/28/23 08:18 Peritoneal Tot Protein < 3.0 gm/dl 11/28/23 08:18 Blood Type O Positive 11/26/23 14:25 Antibody Screen NEGATIVE 11/26/23 14:25 Crossmatch See Detail 11/26/23 14:25 Impressions Abdomen/Pelvis CT 11/26/23 14:30 CT SCAN OF THE ABDOMEN AND PELVIS WITHOUT IV CONTRAST CLINICAL HISTORY: Hematuria. Nausea and vomiting. COMPARISON STUDY: Abdominal CT dated 08/27/2023. TECHNIQUE: CT scan of the abdomen and pelvis is performed from the lung bases to the proximal femora. Images are reviewed in the axial, sagittal, and coronal planes. IV contrast was not administered for this examination. Note that the examination was performed and significantly suboptimal fashion without oral and IV contrast. A dose lowering technique was utilized adhering to the principles of ALARA. CT DOSE: 1192.68 mGy.cm FINDINGS: Lung bases: The heart is mildly enlarged noting a small pericardial effusion. The coronary arteries are densely calcified. There is degenerative attenuation of the cardiac blood pool as compared to the myocardium suggesting anemia. A small hiatal hernia is noted. The lung bases are clear noting dependent atelectasis. Gynecomastia is noted. Liver: The unenhanced liver is cirrhotic in morphology and heterogeneous in attenuation. There is hypertrophy of the left lobe and nodularity of the hepatic surface contour. There is no intrahepatic biliary ductal dilatation. A TIPS catheter is in place. Gallbladder: There are calcified gallstones without CT evidence of acute cholecystitis. Spleen: The spleen is enlarged, measuring 16.8 cm in length. Pancreas: A 2 cm cystic lesion in the pancreatic head with peripheral calcifications is again seen on image #125. The unenhanced pancreas is otherwise grossly unremarkable. Adrenal glands: Unremarkable. Kidneys: The unenhanced kidneys demonstrate mild cortical atrophy and are without hydronephrosis. There are no renal calculi identified. There is no evidence of contour deforming renal mass lesion. Abdominal vasculature: The abdominal aorta is normal in course and caliber noting mild to moderate atherosclerotic calcification. Bowel: There is advanced colonic diverticulosis without CT evidence of acute diverticulitis. No bowel obstruction is seen. The appendix is normal as visualized. Peritoneum: There is a moderate volume of abdominopelvic ascites. There is ascitic fluid containing umbilical hernia. No intracranial free air is seen. Lymphadenopathy: None. Pelvic viscera: The prostate gland is enlarged and heterogeneous noting median lobe hypertrophy. The bladder is distended, and the wall is mildly thickened/trabeculated indicating chronic outlet obstruction. Skeletal structures: The Skeletal structures are osteopenic. There is an acute appearing subacute superior endplate compression fracture of L2 with mild loss of height. This is new from 08/27/2023, and there is only minimal retropulsion of fragments. There is subacute 3 column fracture of the T12 vertebral body. This is unchanged from recent prior examinations. A chronic superior endplate compression deformity of L1 is unchanged. These are new from No lytic or blastic lesions are seen. IMPRESSION: 1. Acute appearing superior endplate compression fracture of L2 with mild loss of height and minimally retropulsed fragments. This is new from 08/27/2023. There is no significant central canal stenosis at this level. 2. A subacute/healing 3 column fracture of T12 is unchanged in alignment. 3. Cirrhotic liver morphology. 4. A moderate volume of abdominopelvic ascites and splenomegaly indicate portal hypertension. 5. Cardiomegaly. 6. A TIPS catheter is in place. 7. Cholelithiasis. 8. Colonic diverticulosis without CT evidence of acute diverticulitis. 9. Additional findings as above. ACT 112: Negative or not required by law. Electronically signed by: Scott Yepez M.D. 11/26/2023 3:12 PM Paracentesis Ultrasound 11/28/23 07:15 Ultrasound-guided paracentesis INDICATION: Ascites PROCEDURE: Procedure and risks were explained. Informed consent was obtained. A final timeout was completed. The abdomen was prepped and draped in sterile fashion. 1% buffered lidocaine was utilized for skin anesthesia. Utilizing ultrasound guidance, a 5 [place] safety centesis catheter was advanced into the left lower quadrant pocket of ascites. Ultrasound images were obtained. 2.6L of cloudy yellow ascites fluid was removed with 1 L sent to the lab for analysis. The catheter was removed and Band-Aid applied. The patient tolerated the procedure well. Vital signs will be monitored postprocedure. IMPRESSION: Paracentesis as above. Performed, dictated, and signed by Luis Ellis PA-C; to be co-signed by Dr. Elan Alexander. Electronically signed by: Elan Alexander M.D. 11/28/2023 12:20 PM 11/26/23 14:30 CT abd pelvis wo con Stat 11/28/23 07:15 IR paracentesis abd w/img US Routine Pending Results Patient Have Any Pending Studies at Discharge: No Discharge Instructions Given to Patient (Per Discharging Provider) DO NOT TAKE LASIX IF YOU ARE FEELING DIZZY. PLEASE MAKE SURE YOU ARE ADEQUATELY HYDRATED DAILY. PLEASE CALL YOUR PRIMARY CARE PHYSICIAN OR RETURN TO THE ER IF WITH WORSENING OF SYMPTOMS, INCLUDING BLACK/BLOODY STOOLS, NAUSEA/VOMITING, ABDOMINAL PAIN/DISTENTION, FEVER/CHILLS, WEAKNESS/DIZZINESS/CHEST PAIN/SHORTNESS OF BREATH, ETC FOLLOW UP WITH PRIMARY CARE PHYSICIAN IN 1 WEEK. TAKE CARE. Total Time Total Time Spent Total Time Spent (In Minutes): >30 minutes
== END 2023-11-30 16:02 | disposition home health service (06) | DRG 812 ==
LOC: ED 11:17 → SUATTDRO 15:42 → EDINP 15:42 → 2E 23:07

== ENCOUNTER 2023-12-12 10:54 | Inpatient (IN) ==
--- NOTE | 2023-12-12 11:11 | Emergency Department Note ---
Impression & Plan BRBPR (bright red blood per rectum) ED Provider Note HISTORY OF PRESENT ILLNESS: Patient is a 73-year-old male presenting with hematuria and hematochezia. Patient reports that he had blood in his urine and bright red blood in his stool starting yesterday. He has had blood in his urine and since then. He has had multiple bowel movements that have been bright red in color. He is not on any anticoagulation. He denies any abdominal pain. Denies any chest pain or shortness of breath. Denies any lightheadedness or dizziness. He was admitted to the hospital 11/26-11/30 for similar symptoms and chest pain. ROS: as above PHYSICAL EXAM: Constitutional: Patient appears in no acute distress. HENT: Head: Normocephalic and atraumatic. Eyes: EOMI, PERRL Mouth/Throat: Mucous membranes moist. Neck: Trachea midline. Neck supple. Cardiovascular: RRR, No murmurs, rubs or gallops. Intact distal pulses. Pulmonary/Chest: No respiratory distress. Breath sounds clear and equal bilaterally. No wheezes or rales. Abdominal: Abdomen soft, no tenderness, rebound or guarding. Rectal: Bright red blood from rectal vault. No hemorrhoids palpated. No anal fissure Musculoskeletal: No edema, tenderness or deformity noted. Skin: Warm and dry. No rash, erythema, pallor or cyanosis Psychiatric: Appropriate mood and affect for situation. Neurological: Alert and keenly responsive. CN II-XII grossly intact, moving all extremities equally and fully. MDM: - Vitals signs stable. - History obtained via patient. Patient presents with hematuria and bright red blood per rectum. Patient reports that yesterday he noticed blood in his urine and started having bright red blood in his stool. Reports he has passed clots in his stool as well. Denies any anticoagulation use. Denies any abdominal pain. Denies any lightheadedness or dizziness. - Chronic conditions affecting care: CKD; HTN; esophageal varices; GAVE; FOFANA; DM-2; hepatocellular carcinoma - Differential diagnoses include, but are not limited to: UTI; bladder mass; PUD; bleeding diverticula; anal fissure - Order placed for continuous cardiac monitoring. At this time, monitor showed rate of 67 bpm with normal sinus rhythm, per my interpretation. - External medical records reviewed. Discharge summary dated 11/30/2023 was reviewed. Patient had been evaluated for anterior chest pressure, lightheadedness and dizziness. He has what is suspected his radiation cystitis. Recommend transfusion if hemoglobin is less than 7. - EKG interpreted by myself showed normal sinus rhythm. Rate 66 bpm. QTc 469. No acute ischemic changes. - Laboratory workup interpreted by myself showed leukopenia (WBC 3.21); chronic anemia (Hgb 7.5); stable electrolytes other than hypocalcemia (Ca 7.9); normal creatinine; normal lipase - UA negative for infection but noted to have RBCs. - CT abdomen/pelvis negative for acute pathology. - Patient reports he has had a history of bleeding diverticula in the past. - Discussion was had with rn managed care about patient's case and need for admission - Hospitalist consulted for admission - [facility] and [facility] 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 Anemia of chronic disease under surveillance Prostate cancer Hx radiation History of panic attacks Gout No current issues GERD (gastroesophageal reflux disease) GAVE (gastric antral vascular ectasia) CKD (chronic kidney disease) stage 3, GFR 30-59 ml/min Hypertension Hx Esophageal varices EGD 05/22/23 ([facility]): Grade 1 varices in distal esophagus without high risk stigmata Upper GI bleed Hx Psoriasis Surgical History History of left cataract surgery History of right cataract surgery History of prostate biopsy malignant S/P TIPS (transjugular intrahepatic portosystemic shunt) History of esophagogastroduodenoscopy (EGD) Most recent 05/2023 [facility] History of colonoscopy with polypectomy History of tonsillectomy and adenoidectomy History of abdominal paracentesis Multiple, most recent 01/2023 Family History Father , "3/4 liver gone due to drinking" Colorectal cancer, Onset Age: 63 Mother Lung cancer Daughter Cancer cervical and thyroid cancers Ovarian cancer Other No family history of adverse response to anesthesia 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 Smoking Status: Never smoker Second Hand Exposure: No; Do You Dip or Chew Tobacco: No; Hx Alcohol Use: No Hx Substance Use: No Preferred Language: Chinese Communication Ability: Effective Visual Impairment: No Limitations Hearing Ability: Normal Lease Administrator Required: No Beliefs That Will Affect Care: None marital status: Current Living Situation: Spouse 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 How many Children do You have: 6 How many Children do You have Comment: one , eldest daughter in her sleep from seizure disorder Feels Safe at Home: Yes Childhood Exposure to Second-Hand Smoke: Yes Diet Comment: "I watch my sugar, average fasting is 140 mg/dl" caffeine: Yes (cola, sugar free, decaf) during the past year weight has: remained stable Dental Care, Regularly: No Physical Activity Frequency: Does not Exercise Seatbelt Use: always Sunscreen Use: Yes Assistive Devices: Walker Allergies Allergies Allergy/AdvReac Type Severity Reaction Status Date / Time No Known Allergies Allergy Mild Verified 12/12/23 12:04 Home Meds Home Medications Medication Instructions Recorded Confirmed allopurinol 100 mg tablet 200 mg PO BID 05/16/20 12/12/23 finasteride 5 mg tablet 5 mg PO QAM 11/03/21 12/12/23 furosemide 20 mg tablet (Lasix) 40 mg PO QAM 11/02/22 12/12/23 insulin glargine 100 unit/mL 26 unit subcut QPM 11/05/22 12/12/23 subcutaneous solution (Lantus U-100 Insulin) acetaminophen 325 mg tablet 650 mg PO Q8H PRN Pain 02/24/23 12/12/23 (Tylenol) triamcinolone acetonide 0.1 % 1 applic topical BID PRN PSORIATIC 02/24/23 12/12/23 topical cream LESIONS WHEN NEEDED Lactobacil.acidophilus-Bifido.animalis 1 cap PO QAM 05/17/23 12/12/23 5 billion cell sprinkle capsule (Probiotic) acetylcysteine 600 mg capsule 600 mg PO QAM 05/17/23 12/12/23 ferrous sulfate 325 mg (65 mg 325 mg PO QAM 05/17/23 12/12/23 iron) tablet (iron) onyzzgxotshy-plv-ubjzg acid-vit 1 tab PO DAILY 05/17/23 12/12/23 K-lycop 400 mcg-20 mcg-370 mcg tablet (Men's 50 Plus Multivitamin) rifaximin 550 mg tablet (Xifaxan) 550 mg PO BID 05/17/23 12/12/23 baclofen 5 mg tablet 5 mg PO AMPM PRN Spasms 07/24/23 12/12/23 duloxetine 60 mg capsule,delayed 60 mg PO DAILY 09/21/23 12/12/23 release (Cymbalta) metoclopramide HCl 5 mg tablet 5 mg PO TID PRN Nausea 09/21/23 12/12/23 mirtazapine 30 mg tablet (Remeron) 30 mg PO HS 09/21/23 12/12/23 Previous Rx's Medication Instructions Recorded pantoprazole 40 mg tablet,delayed 40 mg PO BID 90 days #180 tabs 02/28/23 release lactulose 10 gram oral packet 10 g PO BID #15 ea 09/23/23 (Kristalose) Results & Data (ED) Vital Signs Vital Signs - 24 hr 12/12/23 10:59 12/12/23 11:01 12/12/23 11:05 Temperature 36.5 C Temperature Source Oral Pulse Rate 68 Pulse Rate [Left Apical] 67 Pulse Rhythm [Left Apical] Regular Pulse Strength [Left Apical] Normal Respiratory Rate 18 16 Respiratory Effort / Characteristics Non-Labored Spontaneous Non-Labored Spontaneous Respiratory Depth Normal Normal Blood Pressure 154/69 H Blood Pressure [Left Arm] 150/70 H Blood Pressure Mean 97 Blood Pressure Mean [Left Arm] 96 Blood Pressure Position Sitting Pulse Oximetry 99 98 98 Oxygen Delivery Method Room Air Room Air Room Air Sepsis Recent Fever Within 48 Hours No Sepsis New/Unexplained Change in Mental Status No Sepsis Action Taken by Nursing No Action Required 12/12/23 11:05 12/12/23 12:01 12/12/23 13:21 Temperature Temperature Source Pulse Rate 68 Pulse Rate [Left Apical] 66 Pulse Rhythm [Left Apical] Pulse Strength [Left Apical] Respiratory Rate 16 Respiratory Effort / Characteristics Respiratory Depth Blood Pressure Blood Pressure [Left Arm] 127/78 Blood Pressure Mean Blood Pressure Mean [Left Arm] 94 Blood Pressure Position Pulse Oximetry 97 Oxygen Delivery Method Room Air Sepsis Recent Fever Within 48 Hours Sepsis New/Unexplained Change in Mental Status Sepsis Action Taken by Nursing Laboratory Data 12/12/23 11:02 12/12/23 11:02 Lab Results 12/12/23 12/12/23 12/12/23 Range/Units 11:02 11:44 11:55 WBC 3.21 L (4.8-10.8) K/ul RBC 2.45 L (4.70-6.10) M/uL Hgb 7.5 L (14.0-18.0) g/dl Hct 23.6 L (42.0-52.0) % MCV 96.3 (80.0-100.0) fL MCH 30.6 (25.0-34.0) pg MCHC 31.8 L (32.0-36.0) g/dL RDW Std Deviation 64.0 H (36.4-46.3) fL RDW Coeff of [place] 18.0 H (11.5-14.5) % Plt Count 72 L (130-400) K/uL MPV 11.2 (9.4-12.4) fL Immature Gran % (Auto) 0.3 % Neut % (Auto) 64.9 % Lymph % (Auto) 20.2 % [place] % (Auto) 7.5 % Eos % (Auto) 6.5 % Baso % (Auto) 0.6 % Neut # (Auto) 2.08 (1.40-6.50) K/uL Lymph # (Auto) 0.65 L (1.20-3.40) K/uL [place] # (Auto) 0.24 (0.11-0.59) K/uL Eos # (Auto) 0.21 (0.00-0.50) K/uL Baso # (Auto) 0.02 (0.00-0.20) K/uL Immature Gran # (Auto) 0.01 (0.01-0.20) K/uL Tear Drop Cells 2+ Ovalocytes 1+ Sodium 139 (136-145) mmol/L Potassium 4.2 (3.5-5.1) mmol/L Chloride 114 H (98-107) mmol/L Carbon Dioxide 21 (21-32) mmol/L Anion Gap 4 (3-11) BUN 23 (6-23) mg/dl Creatinine 1.18 (0.6-1.4) mg/dl Est Cr Clr Drug Dosing 57.6 ml/min Est GFR ( Amer) 70.5 ml/min Est GFR (Non-Af Amer) 60.9 ml/min BUN/Creatinine Ratio 19.5 (10-20) Glucose 223 H (70-99(Fasting)) mg/dl Calcium 7.9 L (8.6-10.3) mg/dl Total Bilirubin 1.7 H (0.2-1.0) mg/dl AST 31 (13-39) U/L ALT 15 (7-52) U/L Alkaline Phosphatase 155 H (34-104) U/L Total Protein 5.7 L (6.0-8.3) gm/dl Albumin 2.6 L (3.4-5.0) gm/dl Globulin 3.1 (2.5-4.0) gm/dl Albumin/Globulin Ratio 0.8 L (0.9-2) Lipase 36 (11-82) U/L Urine Color Red Urine Appearance Turbid A (Clear) Urine pH (4.5-7.5) Ur Specific [place] 1.022 (1.000-1.030) Urine Protein (Negative) Urine Glucose (UA) (Negative) Urine Ketones (Negative) Urine Blood (Negative) Urine Nitrite (Negative) Urine Bilirubin (Negative) Urine Urobilinogen (Negative) Ur Leukocyte Esterase (Negative) Urine RBC >30 H (0-4) /hpf Urine WBC 5-10 H (0-5) /hpf Ur Epithelial Cells 0-5 (0-5) /lpf Urine Bacteria Negative (Negative) Blood Type O Positive Antibody Screen NEGATIVE Administered Medications Discontinued Medications Ioversol (Optiray 320 500ml) 82 ml IV ONCE ONE Stop: 12/12/23 14:22 Last Admin: 12/12/23 14:18 Dose: 82 ml Documented By: GINO Imaging Data Radiologist's Impression: Abdomen/Pelvis CT 12/12/23 13:50 CT SCAN OF THE ABDOMEN AND PELVIS WITH IV CONTRAST CLINICAL HISTORY: Generalized abdominal pain. Hematuria. COMPARISON STUDY: Prior abdominal CT scans, most recently dated 11/26/2023. TECHNIQUE: Following the IV administration of 82 cc of Optiray 320, CT scan of the abdomen and pelvis is performed from the lung bases to the proximal femora. Images are reviewed in the axial, sagittal, and coronal planes. IV contrast was administered without complication. A dose lowering technique was utilized adhering to the principles of ALARA. CT DOSE: 1207.97 mGy.cm FINDINGS: Lung bases: The heart is mildly enlarged noting a small pericardial effusion. The coronary arteries are densely calcified. There is bibasilar scarring/atelectasis. No airspace consolidation or pleural effusion is identified. There is a small hiatal hernia. Liver: The contrast-enhanced liver is cirrhotic morphology and heterogeneous in attenuation. There is no intrahepatic biliary ductal dilatation. The hepatic veins abdomen portable veins are patent. A TIPS catheter is in place and appears patent. There are thrombosed peripheral portal venous branches distal to the TIPS. There is recanalization of the periumbilical vein. There is a subtle 3.6 cm mass lesion in the left hepatic lobe liver diaphragms seen on axial image #58. An indeterminant 1.5 cm hypodensity is suggested in the right lobe on image #97. Gallbladder: There are calcified gallstones without CT evidence of acute cholecystitis. Spleen: The spleen is enlarged measuring 16.7 cm in length. There is a splenorenal shunt. Pancreas: A 2.1 cm simple cystic lesion is again seen in the pancreatic head/uncinate. The pancreas is otherwise normal as imaged. Adrenal glands: Unremarkable. Kidneys: The contrast enhanced kidneys demonstrate cortical atrophy and there are without hydronephrosis. The kidneys enhance symmetrically. A 1.6 cm hyperdense cyst is again seen in the anterior interpolar left kidney. Abdominal vasculature: The abdominal aorta is normal in course and caliber noting [id number] atherosclerotic calcification. Bowel: There is moderate to advanced colonic diverticulosis without CT evidence of acute diverticulitis. No bowel obstruction is seen. The appendix is well- visualized and normal. Peritoneum: There is a moderate to large volume of abdominopelvic ascites. No intraperitoneal free air is seen. Lymphadenopathy: None. Pelvic viscera: The prostate gland is enlarged and heterogeneous. The bladder wall is thickened/trabeculated indicating chronic outlet obstruction. Asymmetric bladder wall thickening versus debris is seen posteriorly on the right. Skeletal structures: The skeletal structures are osteopenic. Again seen is a subacute superior endplate compression fracture of L2 with mild loss of height and minimal retropulsion of fragments. There is subacute 3 column fracture of the T12 vertebral body. This is unchanged from recent prior examinations. A chronic superior endplate compression deformity of L1 is unchanged. No lytic or blastic lesions are seen. IMPRESSION: 1. No acute infectious or inflammatory findings are identified in the abdomen or pelvis. 2. The liver is cirrhotic in morphology and heterogeneous in attenuation. 3. There is a subtle 3.6 cm left lobe hepatic mass lesion. Given the cirrhotic morphology, a hepatocellular carcinoma is the diagnosis of exclusion. Correlation with serum AFP levels is recommended, as is a nonemergent contrast- enhanced liver protocol MRI. 4. There may be a second 1.5 cm low-attenuation lesion in the right lobe. This can also be assessed by MRI. 5. A TIPS catheter is patent. There are thrombosed peripheral portal venous branches distal to the TIPS catheter. 6. Splenomegaly, a splenorenal shunt, and a moderate to large volume of abdominopelvic ascites indicate portal hypertension. 7. Colonic diverticulosis without CT evidence of acute diverticulitis. 8. There is asymmetric bladder wall thickening versus intraluminal debris seen posteriorly on the right. Correlate with clinical findings and urinalysis. Follow-up with urology is recommended, as an underlying urothelial neoplasm is not excluded. 9. Cardiomegaly. 10. Cholelithiasis. 11. Again seen are subacute fractures of T12 and L2. 12. Additional findings as above. ACT 112: Positive. There are findings on this exam that require communication between the performing entity and the patient following Patient Test Result Information Act ([place] Act 112) guidelines. Electronically signed by: Scott Yepez M.D. 12/12/2023 2:54 PM Discharge Plan Visit Data Chief Complaint: Hematuria Stated Complaint: HEMATURIA, Hematochezia ED Provider: Ximena Lynn Discharge Problem: BRBPR (bright red blood per rectum) Forms Stand Alone Forms: [employer] Prescriptions Prescriptions: No Action allopurinol 100 mg Tablet 200 mg PO BID furosemide [Lasix] 20 mg Tablet 40 mg PO QAM triamcinolone acetonide 0.1 % cream 1 applic TOPICAL BID PRN (Reason: PSORIATIC LESIONS WHEN NEEDED) acetaminophen [Tylenol] 325 mg Tablet 650 mg PO Q8H PRN (Reason: Pain) pantoprazole 40 mg tablet,delayed release (DR/EC) 40 mg PO BID 90 Days Qty: 180 0RF ferrous sulfate [iron] 325 mg (65 mg iron) Tablet 325 mg PO QAM acetylcysteine 600 mg Capsule 600 mg PO QAM Xifaxan 550 mg tablet 550 mg PO BID Men's 50 Plus Multivitamin 400-20-370 mcg Tablet 1 tab PO DAILY Probiotic 5 billion cell Capsule, Sprinkle 1 cap PO QAM finasteride 5 mg Tablet 5 mg PO QAM insulin glargine [Lantus U-100 Insulin] 100 unit/mL solution 26 unit subcut QPM baclofen 5 mg Tablet 5 mg PO AMPM PRN (Reason: Spasms) duloxetine [Cymbalta] 60 mg capsule,delayed release(DR/EC) 60 mg PO DAILY metoclopramide HCl 5 mg tablet 5 mg PO TID PRN (Reason: Nausea) mirtazapine [Remeron] 30 mg tablet 30 mg PO HS lactulose [Kristalose] 10 gram packet 10 g PO BID Qty: 15 0RF Rx Instructions: Titrate your lactulose as advised to have 2-3 good Bowel movements per day Referrals Referrals: Francisco Cisse MD [Primary Care Provider] -
[2023-12-12 11:29] LABS: Hematocrit (blood only) 23.6 % (42.0-52.0); Hemoglobin 7.5 g/dl (14.0-18.0); Mean Corpuscular Hemoglobin 30.6 pg (25.0-34.0); Mean Corpuscular Hgb Conc 31.8 g/dL (32.0-36.0); Mean Corpuscular Volume 96.3 fL (80.0-100.0); Mean Platelet Volume 11.2 fL (9.4-12.4); Platelet Count 72 K/uL (130-400); Red Blood Count 2.45 M/uL (4.70-6.10); White Blood Count 3.21 K/ul (4.8-10.8)
[2023-12-12 11:33] LABS: Albumin Globulin Ratio 0.8 (0.9-2); Albumin Level 2.6 gm/dl (3.4-5.0); BUN Creatinine Ratio 19.5 (10-20); Bilirubin,Total 1.7 mg/dl (0.2-1.0); Calcium 7.9 mg/dl (8.6-10.3); Creatinine Clr Calc Pharmacy 57.6 ml/min; Est GFR (African American) 70.5 ml/min; Est GFR (Non-African American) 60.9 ml/min; Globulin 3.1 gm/dl (2.5-4.0); Potassium 4.2 mmol/L (3.5-5.1); Total Protein 5.7 gm/dl (6.0-8.3)
[2023-12-12 11:56] LABS: Basophils # (auto) 0.02 K/uL (0.00-0.20); Basophils % (auto) 0.6 %; Eosinophils # (auto) 0.21 K/uL (0.00-0.50); Eosinophils % (auto) 6.5 %; Immature Granulocytes # (auto) 0.01 K/uL (0.01-0.20); Immature Granulocytes % (auto) 0.3 %; Lymphocytes # (auto) 0.65 K/uL (1.20-3.40); Lymphocytes % (auto) 20.2 %; Monocytes # (auto) 0.24 K/uL (0.11-0.59); Monocytes % (auto) 7.5 %; Neutrophils # (auto) 2.08 K/uL (1.40-6.50); Neutrophils % (auto) 64.9 %; Ovalocytes 1+; Tear Drop Cells 2+
[2023-12-12 12:17] LABS: Appearance Urine Turbid (Clear); Color Urine Red; Specific Gravity Urine 1.022 (1.000-1.030)
[2023-12-12 12:51] LABS: Epithelial Cell Urine 0-5 /lpf (0-5); RBC Urine >30 /hpf (0-4)
[2023-12-12 12:52] LABS: Bacteria Urine Negative (Negative)
--- NOTE | 2023-12-12 12:54 | Electrocardiogram Report ---
Test Reason : Blood Pressure : / mmHG Vent. Rate : 066 BPM Atrial Rate : 066 BPM P-R Int : 180 ms QRS Dur : 086 ms QT Int : 448 ms P-R-T Axes : 056 -11 054 degrees QTc Int : 469 ms Normal sinus rhythm Diffuse Minor Nonspecific T wave abnormality Abnormal ECG When compared with ECG of 26-NOV-2023 13:25, Premature ventricular complexes are no longer Present Nonspecific T wave abnormality, improved in Lateral leads Confirmed by Pedro Carlson ([id number]) on 12/12/2023 12:54:37 PM Referred By: REFERRED SELF Confirmed By:Pedro Carlson
[2023-12-12] MEDS ORDERED: OPTIRAY 320 500ml IV ONE (14:21)
--- NOTE | 2023-12-12 14:56 | CT Scan Report ---
CT SCAN OF THE ABDOMEN AND PELVIS WITH IV CONTRAST CLINICAL HISTORY: Generalized abdominal pain. Hematuria. COMPARISON STUDY: Prior abdominal CT scans, most recently dated 11/26/2023. TECHNIQUE: Following the IV administration of 82 cc of Optiray 320, CT scan of the abdomen and pelvi s is performed from the lung bases to the proximal femora. Images are reviewed in the axial, sagittal , and coronal planes. IV contrast was administered without complication. A dose lowering technique wa s utilized adhering to the principles of ALARA. CT DOSE: 1207.97 mGy.cm FINDINGS: Lung bases: The heart is mildly enlarged noting a small pericardial effusion. The coronary arteries a re densely calcified. There is bibasilar scarring/atelectasis. No airspace consolidation or pleural e ffusion is identified. There is a small hiatal hernia. Liver: The contrast-enhanced liver is cirrhotic morphology and heterogeneous in attenuation. There is no intrahepatic biliary ductal dilatation. The hepatic veins abdomen portable veins are patent. A TI PS catheter is in place and appears patent. There are thrombosed peripheral portal venous branches di stal to the TIPS. There is recanalization of the periumbilical vein. There is a subtle 3.6 cm mass le april in the left hepatic lobe liver diaphragms seen on axial image #58. An indeterminant 1.5 cm hypod ensity is suggested in the right lobe on image #97. Gallbladder: There are calcified gallstones without CT evidence of acute cholecystitis. Spleen: The spleen is enlarged measuring 16.7 cm in length. There is a splenorenal shunt. Pancreas: A 2.1 cm simple cystic lesion is again seen in the pancreatic head/uncinate. The pancreas i s otherwise normal as imaged. Adrenal glands: Unremarkable. Kidneys: The contrast enhanced kidneys demonstrate cortical atrophy and there are without hydronephro sis. The kidneys enhance symmetrically. A 1.6 cm hyperdense cyst is again seen in the anterior interp olar left kidney. Abdominal vasculature: The abdominal aorta is normal in course and caliber noting [id number] at herosclerotic calcification. Bowel: There is moderate to advanced colonic diverticulosis without CT evidence of acute diverticulit is. No bowel obstruction is seen. The appendix is well-visualized and normal. Peritoneum: There is a moderate to large volume of abdominopelvic ascites. No intraperitoneal free ai r is seen. Lymphadenopathy: None. Pelvic viscera: The prostate gland is enlarged and heterogeneous. The bladder wall is thickened/trabe culated indicating chronic outlet obstruction. Asymmetric bladder wall thickening versus debris is se en posteriorly on the right. Skeletal structures: The skeletal structures are osteopenic. Again seen is a subacute superior endpla te compression fracture of L2 with mild loss of height and minimal retropulsion of fragments. There i s subacute 3 column fracture of the T12 vertebral body. This is unchanged from recent prior examinati ons. A chronic superior endplate compression deformity of L1 is unchanged. No lytic or blastic lesion s are seen. IMPRESSION: 1. No acute infectious or inflammatory findings are identified in the abdomen or pelvis. 2. The liver is cirrhotic in morphology and heterogeneous in attenuation. 3. There is a subtle 3.6 cm left lobe hepatic mass lesion. Given the cirrhotic morphology, a hepatoce llular carcinoma is the diagnosis of exclusion. Correlation with serum AFP levels is recommended, as is a nonemergent contrast-enhanced liver protocol MRI. 4. There may be a second 1.5 cm low-attenuation lesion in the right lobe. This can also be assessed b y MRI. 5. A TIPS catheter is patent. There are thrombosed peripheral portal venous branches distal to the TI PS catheter. 6. Splenomegaly, a splenorenal shunt, and a moderate to large volume of abdominopelvic ascites indica te portal hypertension. 7. Colonic diverticulosis without CT evidence of acute diverticulitis. 8. There is asymmetric bladder wall thickening versus intraluminal debris seen posteriorly on the rig ht. Correlate with clinical findings and urinalysis. Follow-up with urology is recommended, as an und erlying urothelial neoplasm is not excluded. 9. Cardiomegaly. 10. Cholelithiasis. 11. Again seen are subacute fractures of T12 and L2. 12. Additional findings as above. ACT 112: Positive. There are findings on this exam that require communication between the performing entity and the patient following Patient Test Result Information Act ([place] Act 112) guidelines. Electronically signed by: Scott Yepez M.D. 12/12/2023 2:54 PM
--- NOTE | 2023-12-12 16:44 | History & Physical Report ---
Date of Service December 12, 2023 Assessment & Plan (1) BRBPR (bright red blood per rectum): Plan: Presents with 2 days of bright red blood per rectum. Painless Hemoglobin similar to baseline from his last discharge. Last colonoscopy was in August 2023; found to have polyp in transverse colon, moderate diverticulosis with no evidence of bleeding. He was recommended to have repeat colonoscopy in 1 year because the bowel preparation was suboptimal. Last endoscopy was also in August 2023; normal esophagus, portal hypertensive gastropathy was seen. CT abdomen pelvis on admission; no acute findings in the abdomen/pelvis. Cirrhotic liver. 3.6 cm left lobe hepatic lesion as well as 1.5 cm lesion right lobe. Colonic diverticulosis without CT evidence of acute diverticulitis was seen. Also found to have asymmetrical bladder wall thickening versus intraluminal debris. Monitor CBC every 8 hours. Transfuse packed RBC if hemoglobin is less than 7. Obtain PT/INR Consent for blood transfusion taken Full liquid diet, n.p.o. from midnight Appreciate GI input for bright red blood per rectum and CT abdomen/Pelvis findings. (2) Hematuria: Plan: History of prostate cancer status postradiation. Patient reports that his last radiation was 2 years back Follows up with Dr. Peraza from [facility]. Patient reports that he has follow- up next month for possible cystoscopy Similar episode last admission as well. CT abdomen and pelvis shows asymmetrical bladder wall thickening versus intraluminal debris Appreciate urology input. Monitor CBC every 8 hours. Transfuse packed RBC if hemoglobin is less than 7. Pancytopenia Likely secondary to liver cirrhosis. Monitor CBC daily Obtain vitamin B12 level in am 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: Chronic Takes chills; continue Takes rifaximin; continue Continue Lasix Insulin dependent Diabetes: Chronic Takes Lantus; Glycemic pharmacy consult Psoriasis: Takes triamcinolone; continue CKD: Creatinine at baseline Depression: Chronic Takes Cymbalta;continue Disposition: PCP: Dr. Cisse Code Status: Full Code VTE Prophylaxis: Teds and SCDs for now Time spent evaluating patient, direct bedside care, chart review, placing orders, interpretation of diagnostic studies, discussion with consultants, patient, and family members, as well as other required patient management activities is 75 minutes. Please note the above document was generated using voice recognition software. It may contain grammatical, syntax or spelling errors. Any formal questions or concerns about the content, text or information contained within the body of this dictation should be directly addressed to the provider for clarification History of Present Illness Chief Complaint: Hematochezia for 2 days Gross hematuria for 2 days Primary Care Provider: Francisco Cisse MD History obtained from interview with the patient and chart review. Reported Medical history includes: H/O Hepatocellular Carcinoma S/P IR embolization/portal vein thrombus, H/O FOFANA Cirrhosis S/P TIPS, prostate CA s/p radiation 2020, IDDM2, CKD, psoriasis, and depression. Last admission was in November, with similar issue Patient reports that he was doing well after the discharge from the hospital with no recurrence of hematuria and hematochezia. However, he started to notice red urine since last 2 days. He denies any passage of blood or suprapubic pain. He denies fever, chills, increased urgency or frequency. He also reports bright red blood per rectum which is painless. He reports having 4-5 bowel movements every day all with blood. He complains of mild abdominal discomfort. Patient's last colonoscopy was in August 2023; found to have polyp in transverse colon, moderate diverticulosis with no evidence of bleeding. He was recommended to have repeat colonoscopy in 1 year because the bowel preparation was suboptimal. Last endoscopy was also in August 2023; normal esophagus, portal hypertensive gastropathy was seen. Patient reports that he is to see his urologist in beginning of January for possible cystoscopy. He reports that his last radiation for prostate cancer was 2 years back. On presentation to the ED, patient was normotensive, afebrile and saturating well on room air. Hemoglobin on admission was 7.5; similar to his baseline at discharge. Platelet count of 72,000. Urinalysis shows red urine, RBC greater than 30. CT abdomen pelvis was done; no acute findings in the abdomen/pelvis. Cirrhotic liver. 3.6 cm left lobe hepatic lesion as well as 1.5 cm lesion right lobe. Colonic diverticulosis without CT evidence of acute diverticulitis was seen. Also found to have asymmetrical bladder wall thickening versus intraluminal debris. Allergies Allergy/AdvReac Type Severity Reaction Status Date / Time No Known Allergies Allergy Mild Verified 12/12/23 12:04 Home Medications Medication Instructions Recorded Confirmed Type allopurinol 100 mg tablet 200 mg PO BID 05/16/20 12/12/23 History finasteride 5 mg tablet 5 mg PO QAM 11/03/21 12/12/23 History furosemide 20 mg tablet (Lasix) 40 mg PO QAM 11/02/22 12/12/23 History insulin glargine 100 unit/mL 26 unit subcut QPM 11/05/22 12/12/23 History subcutaneous solution (Lantus U-100 Insulin) acetaminophen 325 mg tablet 650 mg PO Q8H PRN Pain 02/24/23 12/12/23 History (Tylenol) triamcinolone acetonide 0.1 % 1 applic topical BID PRN PSORIATIC 02/24/23 12/12/23 History topical cream LESIONS WHEN NEEDED pantoprazole 40 mg tablet,delayed 40 mg PO BID 90 days #180 tabs 02/28/23 12/12/23 Rx release Lactobacil.acidophilus-Bifido.animalis 1 cap PO QAM 05/17/23 12/12/23 History 5 billion cell sprinkle capsule (Probiotic) acetylcysteine 600 mg capsule 600 mg PO QAM 05/17/23 12/12/23 History ferrous sulfate 325 mg (65 mg 325 mg PO QAM 05/17/23 12/12/23 History iron) tablet (iron) mujjwrjjnjjj-gos-evrde acid-vit 1 tab PO DAILY 05/17/23 12/12/23 History K-lycop 400 mcg-20 mcg-370 mcg tablet (Men's 50 Plus Multivitamin) rifaximin 550 mg tablet (Xifaxan) 550 mg PO BID 05/17/23 12/12/23 History baclofen 5 mg tablet 5 mg PO AMPM PRN Spasms 07/24/23 12/12/23 History duloxetine 60 mg capsule,delayed 60 mg PO DAILY 09/21/23 12/12/23 History release (Cymbalta) metoclopramide HCl 5 mg tablet 5 mg PO TID PRN Nausea 09/21/23 12/12/23 History mirtazapine 30 mg tablet (Remeron) 30 mg PO HS 09/21/23 12/12/23 History lactulose 10 gram oral packet 10 g PO BID #15 ea 09/23/23 12/12/23 Rx (Kristalose) Past Med/Surg History Medical History Atypical chest pain Radiation cystitis Encounter for pre-operative examination History of blood transfusion 11/2022 Hepatocellular carcinoma Spinal fracture of T12 vertebra History of recent hospitalization 06/2023 [facility] hepatic encephalopathy Insulin dependent type 2 diabetes mellitus Liver spots Under surveillance, stable per patient Anxiety and depression 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 Anemia of chronic disease under surveillance Prostate cancer Hx radiation History of panic attacks Gout No current issues GERD (gastroesophageal reflux disease) GAVE (gastric antral vascular ectasia) CKD (chronic kidney disease) stage 3, GFR 30-59 ml/min Hypertension Hx Esophageal varices EGD 05/22/23 ([facility]): Grade 1 varices in distal esophagus without high risk stigmata Upper GI bleed Hx Psoriasis Surgical History History of left cataract surgery History of right cataract surgery History of prostate biopsy malignant S/P TIPS (transjugular intrahepatic portosystemic shunt) History of esophagogastroduodenoscopy (EGD) Most recent 05/2023 [facility] History of colonoscopy with polypectomy History of tonsillectomy and adenoidectomy History of abdominal paracentesis Multiple, most recent 01/2023 Family History Father , "3/4 liver gone due to drinking" Colorectal cancer, Onset Age: 63 Mother Lung cancer Daughter Cancer cervical and thyroid cancers Ovarian cancer Other No family history of adverse response to anesthesia 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 Smoking Status: Never smoker Second Hand Exposure: No; Do You Dip or Chew Tobacco: No; Hx Alcohol Use: No Hx Substance Use: No Preferred Language: Spanish Communication Ability: Effective Visual Impairment: No Limitations Hearing Ability: Normal Ux Manager Required: No Beliefs That Will Affect Care: None marital status: Current Living Situation: Spouse 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 How many Children do You have: 6 How many Children do You have Comment: one , eldest daughter in her sleep from seizure disorder Feels Safe at Home: Yes Childhood Exposure to Second-Hand Smoke: Yes Diet Comment: "I watch my sugar, average fasting is 140 mg/dl" caffeine: Yes (cola, sugar free, decaf) during the past year weight has: remained stable Dental Care, Regularly: No Physical Activity Frequency: Does not Exercise Seatbelt Use: always Sunscreen Use: Yes Assistive Devices: Walker Physical Exam Physical Exam: Constitutional: Alert oriented x 3; not in any distress Respiratory: Bilateral vesicular breath sound Cardiovascular: RRR, no murmur, no edema Vessels: no JVD or carotid bruit Chest: normal inspection of chest Abdomen: Slightly distended, soft. Nontender Musculoskeletal: 1+ pitting edema seen Skin: Multiple psoriatic lesions seen all over the body. Neurologic: PERRL, EOMI, accommodation nl, no face palsy, no dysarthria CN's II- XI intact bilaterally and moves all extremities Psychiatric: A+Ox3, euthymic affect Results & Data Results & Data Vital Signs (Past 12 Hours) Vital Signs Temp Pulse Pulse Resp BP BP Pulse Ox 12/12/23 13:21 66 16 127/78 97 12/12/23 12:01 68 12/12/23 11:05 12/12/23 11:05 67 16 150/70 H 98 12/12/23 11:01 98 12/12/23 10:59 36.5 C 68 18 154/69 H 99 O2 Del Method 12/12/23 13:21 12/12/23 12:01 12/12/23 11:05 Room Air 12/12/23 11:05 Room Air 12/12/23 11:01 Room Air 12/12/23 10:59 Room Air
--- OUTSIDE RECORDS SUMMARY | 2023-12-12 16:57 | External Medical Summary | Summary of Care ---
Author Name Unknown Organization [facility] Address [address] [facility] [address] Phone [phone] Care Team Providers Care Air Traffic Control Equipment Repairer Name Role Phone Francisco Cisse MD Primary Care Provider + Reason for Visit * Reason Onset Date Comments Medication Refill 11/24/2023 Encounter Details Date Type Department Care Team (Late st Contact Info) Description 11/24/2023 Refill General Internal Medicine [facility] [address] [facility] [place] [place] [address] Francisco Cisse MD [address] [place] [address] GAVE (gastric antral vascular ectasia) Allergies No known active allergiesdocumented as of this encounter (statuses as of 11/27/2023) Medications Medication Sig Dispensed Refills Start Date [...] With dinner 3 Each 5 11/14/2023 Active rifAXIMin 550 MG Oral Tablet (Xifaxan)Indications :Cirrhosis of liver (HCC),Hepatic encephalopathy (HCC) Take 1 Tablet by mouth in the morning and 1 Tablet before bedtime. 180 Tablet 5 11/26/2023 Active Hospital, Clinic, or Other Facility Administered [...] as of this encounter (statuses as of 11/27/2023) Active Problems Problem Noted Date Diagnosed Date [...] as of this encounter (statuses as of 11/27/2023) Resolved Problems Problem Noted Date Diagnosed Date [...] as of this encounter (statuses as of 11/27/2023) Immunizations Name Administration Dates Next Due COVID-19 mRNA, LNP-s, No Pre serve, 2-Dose Series ([place]) 03/08/2021,02/15/2021 HepA Inact/HepB Recomb>=18yrs old 12/04/2019,04/2019,05/20/2019 11/19/2019 PPD 06/18/2017, 3,01/09/2012,0306/2011 Pneumococcal Conjugate Vacc, 13 Valent (Prevnar) 05/01/2017 Pneumococcal Polysaccharide PPV23 (Pneumovax) 08/28/2022,10/25/2015,07/14/2012 Season Influenza, Quad, PF, Adjuvanted, 65+ Yrs, IM (FLUAD) 10/07/2020(Deferred: Patient Refused - pt says he already had his shot last month at [facility] Handy Lyons and Mckinley Cobian [...] encounter Miscellaneous Notes * Telephone Encounter - Luis Lopez RPh - 11/27/2023 9:52 AM EST 6 month supply sent 09/02/23 Lusi Bonilla Rph, Pharm D. Clinical Pharmacist Centralized Clinical Pharmacy Services (Formerly Telepharmacy)/[facility] [phone] 11/27/2023,9:53 AM documented in this encounter Plan of Treatment Upcoming Encounters Date Type Department Care Team (Late st Contact Info) Description 12/13/2023 9:30 AM EST Office Visit Gastroenterology, [facility] [address] [facility] [place] [address] Lamar Tatum CRNP 132 [facility] [place] [address] 12/27/2023 2:30 PM EST Imaging Radiology [facility] [facility] [address] [facility] [place] [address] 01/07/2024 11:00 AM EST Procedure Only Urology, [facility] [address] [facility] [place] [address] Frank Peraza MD [address] [facility] [address] [place] [address] 01/13/2024 4:20 PM EST Office Visit General Internal Medicine [facility] [address] [facility] [place], [place] [address] Joaquin Snider PA-C [address] [facility] [place], [place] [address] 01/20/2024 4:00 PM EST Office Visit Hematology/Oncology [facility] [address] [facility] [place] [address] Jennifer Ramires MD [address] [facility] [place] [address] 03/13/2024 2:00 PM EDT Office Visit Dermatology [facility] [address] [facility] [place] [address] Francisco Watson MD 200 [facility] [place] [address] 08/20/2024 10:15 AM EDT Office Visit Ophthalmology, [facility] 132 [facility] [place] [address] Cody Gonzalez, DO [address] [facility] [place] [address] Scheduled Procedures Name Priority Associated Diagnoses Date/Ti [...] Additional history exists CKD PHOS USE SMARTSET 53806 01/28/20242 06/2023, 07/26/2022, 12/05/2021, Additional history exists Diabetic Foot Exam 03/06/2024 03/06/2023, 0 01/03/2022, 03/02/2021, Additional history exists GFR 05/17/2024 11/16/2023, 08/03, 07/24/2023, Additional history exists Albumin/Creatinine Ratio 07/12/2024 023, 10/01/2022, 09/11/2021, Additional history exists COLONOSCOPY-ANNUAL AGES 18-100 08/09/2024 08/09/2023, 11/07/2022, 11/07/2022, Additional history exists CKD HGB USE SMARTSET 16411 11/16/202411/16, 11/16/2023, 09/26/2023, Additional history exists Lipid [...] this encounter Medical Devices Implanted Type Area Life Insurance Sales Device Identifier Shelf Expiration Date Model / Serial / Lot Clareon Iol Aspheric Hydrophobic Acrylic Iol Implanted:Qty: 1 on 04/23/2023 by Cody Gonzalez DO at [facility] Lens Left: Eye 11/12/2025 [id number] / [id number] / Viatorr Tips Endoprosthesis 8-10 Mm X 8cm / 2cm Implanted:Qty: 1 on 10/07/2020 by Go Alvarado MD at [facility] Right: Abdomen 03/03/2023 [id number] / / [id number] Description:Viatorr TIPS End oprosthesis 8-10 mm x 8cm / 2cm, Manufactored by [employer] Syr Pf 2ml Embospheres 100-300 - [id number] Implanted:Qty: 1 on 04/18/2021 by Kevin Lim DO at OR [facility] Left: Abdomen [employer] [id number] 11/25/2023 S220GH / / [id number] -[id number] Syr Pf 2ml Embospheres 100-300 - [id number] Implanted:Qty: 1 on 03/28/2022 at [facility] [employer] [id number] 08/31/2024 S220GH / / [id number] -[id number] Clareon Iol Aspheric Hydrophobic Acrylic Iol Implanted:Qty: 1 on 04/02/2023 by Cody Gonzalez DO at OR [facility] Right: Eye JAZMIN 11/12/2025 CNA0T0 / [id number] / documented as of this encounter Visit Diagnoses Diagnosis GAVE (gastric antral vascular ectasia) Angiodysplasia of stomach and duodenum (without mention of hemorrhage) documented in this encounter Advance Directives Documents on File Type Date Recorded Patient Youth Corrections Officer Expl anation Advance Directives and Living Will 12/11/2022 ADVANCE DIRECTIVE / LIVING WILL LIVING WILL Power of Bookkeepers Supervisor 12/11/2022 POWER OF A TTORNEY Latest [...] the patient have Health Care Power of Bookkeepers Supervisor? No Full Code 07/22/2014 9:56 PM 07/24/2014 8:18 PM This order reflects the patients wishes and were consensually agreed upon. Question Answer Comments Discussion of Advance Directives occurred with: Patient Does the patient have a Living Will? No Does the patient have Health Care Power of Bookkeepers Supervisor? No Care Teams Air Traffic Control Equipment Repairer Relationship Specialty Start Date End Date Francisco Cisse MD [address] [place] [address] PCP - General Internal Medicine 09/04/21 documented as of this encounter
--- OUTSIDE RECORDS SUMMARY | 2023-12-12 16:57 | External Medical Summary ---
Author Name Unknown Address Unknown Organization [id number]:LABORATORY [facility] - [address] [place] [address] [place] [address] Laboratory Report Ordering Provider Test Date Status NEELAM RICCI 12/06/2023 11:35:00 Final Observation Date Value Abnormality Reference (Units ) Status Iron 12/06/2023 11:35:00 79 45-176 (ug/dL) Final Iron-binding capacity 12/06/2023 11:35:00 208 Below low normal 250-425 (ug/dL) Final Transferrin Sat % 12/06/2023 11:35:00 38 15-55 (%) Final Performing Location LABORATORY [facility] - [address] [place] [address]
--- OUTSIDE RECORDS SUMMARY | 2023-12-12 16:57 | External Medical Summary | Summary of Care ---
Author Name Unknown Organization [facility] Address [address] [place] [place] [address] Phone [phone] Care Team Providers Care Chair Trimmer Name Role Phone Francisco Cisse MD Primary Care Provider + Reason for Visit * Reason Onset Date Comments Hospital Follow-Up 12/03/2023 Encounter Details Date Type Department Care Team (Late st Contact Info) Description 12/03/2023 Telephone Hematology/Oncology Treatment, [place] [address] [place] [address] Jennifer Ramires MD [address] [place] [address] Hospital Follow-Up Allergies No known active allergiesdocumented as of this encounter (statuses as of 12/03/2023) Medications Medication Sig Dispensed Refills Start Date [...] as of this encounter (statuses as of 12/03/2023) Active Problems Problem Noted Date Diagnosed Date [...] as of this encounter (statuses as of 12/03/2023) Resolved Problems Problem Noted Date Diagnosed Date [...] as of this encounter (statuses as of 12/03/2023) Immunizations Name Administration Dates Next Due COVID-19 mRNA, LNP-s, No Pre serve, 2-Dose Series ([employer]) 03/08/2021,02/15/2021 HepA Inact/HepB Recomb>=18yrs old 12/04/2019,04/2019,05/20/2019 11/19/2019 [...] encounter Miscellaneous Notes * Telephone Encounter - Josephine Murphy RN - 12/03/2023 1:15 PM EST Patient admitted at [facility] 11/26/23- 11/30/23 for radiation cystitis/ pancytopenia. Hgb on discharge 7.3. Patient discharged with plan to repeat labs/ see PCP in 1 week. This has not been scheduled yet. Dr Ramires: Please advise if anything further is needed. Patient has follow up with you 01/20/24. documented in this encounter Plan of Treatment Upcoming Encounters Date Type Department Care Team (Late st Contact Info) Description 12/13/2023 9:30 AM EST Office Visit Gastroenterology, [facility] [address] [place] [address] Lamar Tatum CRNP [address] [place] [address] 12/27/2023 2:30 PM EST Imaging Radiology [facility] [address] [place] [address] 01/07/2024 11:00 AM EST Procedure Only Urology, [facility] [address] [place] [address] Frank Peraza MD [address] [address] [place] [address] 01/13/2024 4:20 PM EST Office Visit General Internal Medicine [facility] 200 [facility] [place], [place] [address] Joaquin Snider PA-C [address] [facility] [place], [place] [address] 01/20/2024 4:00 PM EST Office Visit Hematology/Oncology [facility] 200 [facility] [place] [address] Jennifer Ramires MD 200 [facility] [place] [address] 03/13/2024 2:00 PM EDT Office Visit Dermatology [facility] [address] [facility] [place] [address] Francisco Watson MD 200 [facility] [place] [address] 08/20/2024 10:15 AM EDT Office Visit Ophthalmology, [facility] [address] [facility] [place] [address] Cody Gonzalez DO [facility] [place] [address] Scheduled Procedures Name Priority Associated Diagnoses Date/Ti [...] Additional history exists CKD PHOS USE SMARTSET 65535 01/28/202401/03, 07/26/2022, 12/05/2021, Additional history exists Diabetic Foot Exam 03/06/2024 03/06/2023, 0 01/03/2022, 03/02/2021, Additional history exists GFR 05/17/2024 11/16/2023, 08/03, 07/24/2023, Additional history exists Albumin/Creatinine Ratio 07/12/2024 023, 10/01/2022, 09/11/2021, Additional history exists COLONOSCOPY-ANNUAL AGES 18-100 08/09/2024 08/09/2023, 11/07/2022, 11/07/2022, Additional history exists CKD HGB USE SMARTSET 36604 11/16/202411/16, 11/16/2023, 09/26/2023, Additional history exists Lipid [...] encounter Medical Devices Implanted Type Area Manager Front Device Identifier Shelf Expiration Date Model / Serial / Lot Clareon Iol Aspheric Hydrophobic Acrylic Iol Implanted:Qty: 1 on 04/23/2023 by Cody Gonzalez DO at OR [facility] Lens Left: Eye 11/12/2025 CNA0T0 / [id number] / Viatorr Tips Endoprosthesis 8-10 Mm X 8cm / 2cm Implanted:Qty: 1 on 10/07/2020 by Go Alvarado MD at [facility] Right: Abdomen 03/03/2023 [id number] / / [id number] Description:Viatorr TIPS End oprosthesis 8-10 mm x 8cm / 2cm, Manufactored by [employer] Syr Pf 2ml Embospheres 100-300 - [id number] Implanted:Qty: 1 on 04/18/2021 by Kevin Lim DO at OR [facility] Left: Abdomen [employer] [id number] 11/25/2023 S220GH / / [id number] -[id number] Syr Pf 2ml Embospheres 100-300 - [id number] Implanted:Qty: 1 on 03/28/2022 at [facility] [employer] [id number] 08/31/2024 S220GH / / [id number] -5 Clareon Iol Aspheric Hydrophobic Acrylic Iol Implanted:Qty: 1 on 04/02/2023 by Cody Gonzalez DO at OR [facility] Right: Eye JAZMIN 11/12/2025 CNA0T0 / [id number] / documented as of this encounter Advance Directives Documents on File Type Date Recorded Patient Marketing Project Specialist Expl anation Advance Directives and Living Will 12/11/2022 ADVANCE DIRECTIVE / LIVING WILL LIVING WILL Power of Commercial Lines Account Assistant 12/11/2022 POWER OF A TTORNEY Latest [...] the patient have Health Care Power of Commercial Lines Account Assistant? No Full Code 07/22/2014 9:56 PM 07/24/2014 8:18 PM This order reflects the patients wishes and were consensually agreed upon. Question Answer Comments Discussion of Advance Directives occurred with: Patient Does the patient have a Living Will? No Does the patient have Health Care Power of Commercial Lines Account Assistant? No Care Teams Chair Trimmer Relationship Specialty Start Date End Date Francisco Cisse MD [address] [place] [address] PCP - General Internal Medicine 09/04/21 documented as of this encounter
--- OUTSIDE RECORDS SUMMARY | 2023-12-12 16:57 | External Medical Summary ---
Author Name Unknown Address Unknown Organization K09:[facility] [place] [address] Laboratory Report Ordering Provider Test Date Status RICCINEELAM 12/06/2023 11:35:00 Final Observation Date Value Abnormality Reference (Units ) Status Nucleated erythrocytes/100 leukocytes [Ratio] in Blood by Automated count 12/06/2023 11:35:00 Final Schistocytes 12/06/2023 11:35:00 Few Abnormal None Seen Final Performing Location [facility] [place] [address]
--- OUTSIDE RECORDS SUMMARY | 2023-12-12 16:57 | External Medical Summary | Summary of Care ---
Author Name Unknown Organization [facility] Address [address] [facility] [place] [address] Phone [phone] Care Team Providers Care Pedigree Tracer Name Role Phone Francisco Cisse MD Primary Care Provider + Reason for Visit * Reason Comments Outpatient Testing Encounter Details Date Type Department Care Team (Late st Contact Info) Description 12/06/2023 11:30 AM EST Laboratory Laboratory [facility] [place] [address] [place] [address] [place], Lab Scenery [address] [place] [address] Iron deficiency anemia, unspecified iron deficiency anemia type; Hospital discharge follow-up; Chronic blood loss anemia Allergies No known active allergiesdocumented as of this encounter (statuses as of 12/06/2023) Medications Medication Sig Dispensed Refills Start Date [...] after paracentesis 100 mL 0 08/22/2023 Active Additional Information Patient not taking.Reported on 12/06/2023 Metoclopramide HCl 5 MG Oral Tablet (Reglan) [...] as of this encounter (statuses as of 12/06/2023) Active Problems Problem Noted Date Diagnosed Date Protein-calorie malnutrition 12/06/2023 Prostate cancer 12/06/2023 Closed T12 spinal fracture 07/12/2023 Restrictive ventilatory [...] as of this encounter (statuses as of 12/06/2023) Resolved Problems Problem Noted Date Diagnosed Date [...] as of this encounter (statuses as of 12/06/2023) Immunizations Name Administration Dates Next Due COVID-19 mRNA, LNP-s, No Pre serve, 2-Dose Series (GoEuro) 03/08/2021,02/15/2021 HepA Inact/HepB Recomb>=18yrs old 12/04/2019,04/2019,05/20/2019 11/19/2019 PPD 06/18/2017, 3,01/09/2012,06/2011 Pneumococcal Conjugate Vacc, 13 Valent (Prevnar) 05/01/2017 Pneumococcal Polysaccharide PPV23 (Pneumovax) 08/28/2022,10/25/2015,07/14/2012 Season Influenza, Quad, PF, Adjuvanted, 65+ Yrs, IM (FLUAD) 10/07/2020(Deferred: Patient Refused - pt says [facility] made aware) Seasonal [...] 12/13/2023 9:30 AM EST Office Visit Gastroenterology, [facility] 132 [facility] [place] [address] Lamar Tatum CRNP 132 [facility] [place] [address] 12/27/2023 2:30 PM EST Imaging Radiology [address] 132 [facility] [place] [address] 01/07/2024 11:00 AM EST Procedure Only Urology, [facility] 132 [facility] [place] [address] Frank Peraza MD [address] [address] [place] [address] 01/20/2024 4:00 PM EST Office Visit Hematology/Oncology [facility] [address] [place] [address] Jennifer Ramires MD [address] [place] [address] 02/03/2024 2:20 PM EST Office Visit General Internal Medicine [facility] [address] [place] [address] Gege Herbert MD 200 [facility] [place], [place] [address] 03/13/2024 2:00 PM EDT Office Visit Dermatology [facility] [address] [place], [place] [address] Francisco Watson MD 200 [facility] [place], [place] [address] 08/20/2024 10:15 AM EDT Office Visit Ophthalmology, [facility] 132 [facility] [place] [address] Cody Gonzalez DO [address] [place] [address] Pending Results Name Type Priority Associated Diagnoses Date /Time CBC WITH WBC DIFFERENTIAL Lab STAT Iron deficiency anemia, unspecified iron deficiency anemia type 12/06/2023 11:35 AM EST FERRITIN Lab STAT Iron deficiency anemia, unspecified iron deficiency anemia type 12/06/2023 11:35 AM EST IRON SCREEN, INCLUDING TIBC Lab STAT Iron deficiency anemia, unspecified iron deficiency anemia type 12/06/2023 11:35 AM EST CBC Lab STAT Iron deficiency anemia, unspecified iron deficiency anemia type 12/06/2023 11:35 AM EST DIFFERENTIAL, AUTOMATED Lab STAT Iron deficiency anemia, unspecified iron deficiency anemia type 12/06/2023 11:35 AM EST Scheduled Procedures Name Priority Associated [...] 04/05/2021 03/08/2021, 02/15/2021 Depression Screening 05/03/2022 05/03/2021 Diabetic Eye Exam 01/17/2024 01/17/2023, , 01/17/2023, Additional history exists CKD PHOS USE SMARTSET 76282 01/28/202401/03, 07/26/2022, 12/05/2021, Additional history exists Diabetic Foot Exam 03/06/2024 03/06/2023, 0 01/03/2022, 03/02/2021, Additional history exists GFR 05/17/2024 11/16/2023, 08/03, 07/24/2023, Additional history exists HbA1c 05/28/2024 11/27/2023, 05/03, 01/28/2023, Additional history exists Albumin/Creatinine Ratio 07/12/2024 023, 10/01/2022, 09/11/2021, Additional history exists COLONOSCOPY-ANNUAL AGES 18-100 08/09/2024 08/09/2023, 11/07/2022, 11/07/2022, Additional history exists CKD HGB USE SMARTSET 35868 11/16/202411/16, 11/16/2023, 09/26/2023, Additional history exists Lipid [...] encounter Medical Devices Implanted Type Area Manager Emergency Department Device Identifier Shelf Expiration Date Model / Serial / Lot Clareon Iol Aspheric Hydrophobic Acrylic Iol Implanted:Qty: 1 on 04/23/2023 by Cody Gonzalez DO at OR [facility] Lens Left: Eye 11/12/2025 [id number] / [id number] / Viatorr Tips Endoprosthesis 8-10 Mm X 8cm / 2cm Implanted:Qty: 1 on 10/07/2020 by Go Alvarado MD at [facility] Right: Abdomen 03/03/2023 [id number] / / [id number] Description:Viatorr TIPS End oprosthesis 8-10 mm x 8cm / 2cm, Manufactored by [employer] Syr Pf 2ml Embospheres 100-300 - [id number] Implanted:Qty: 1 on 04/18/2021 by Kevin Lim DO at OR [facility] Left: Abdomen [employer] [id number] 11/25/2023 S220GH / / [id number] Syr Pf 2ml Embospheres 100-300 - [id number] Implanted:Qty: 1 on 03/28/2022 at [facility] [employer] [id number] 08/31/2024 S220GH / / [id number] -[id number] Clareon Iol Aspheric Hydrophobic Acrylic Iol Implanted:Qty: 1 on 04/02/2023 by Cody Gonzalez DO at OR [facility] Right: Eye JAZMIN 11/12/2025 CNA0T0 / [id number] / documented as of this encounter Visit Diagnoses Diagnosis Iron deficiency anemia, unspecified iron deficiency anemia type Hospital discharge follow-up Other follow-up examination 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 No Full Code 07/22/2014 9:56 PM 07/24/2014 8:18 PM This order reflects the patients wishes and were consensually agreed upon. Question Answer Comments Discussion of Advance Directives occurred with: Patient Does the patient have a Living Will? No Does the patient have Health Care Power of Batterboard Setter? No Care Teams Pedigree Tracer Relationship Specialty Start Date End Date Francisco Cisse MD 200 [place] [address] PCP - General Internal Medicine 09/04/21 documented as of this encounter
--- OUTSIDE RECORDS SUMMARY | 2023-12-12 16:57 | External Medical Summary | Summary of Care ---
Author Name Unknown Organization [facility] Address [address] [facility] [place] [address] Phone [phone] Care Team Providers Care Securities Broker Name Role Phone Francisco Cisse MD Primary Care Provider + Reason for Visit * Reason Onset Date Comments Medication Refill 11/24/2023 Encounter Details Date Type Department Care Team (Late st Contact Info) Description 11/24/2023 Refill Gastroenterology, [facility] [address] [place] [address] Lamar Tatum CRNP [address] [place] [address] Cirrhosis of liver (HCC); Hepatic encephalopathy (HCC) Allergies No known active allergiesdocumented as of this encounter (statuses as of 11/26/2023) Medications Medication Sig Dispensed Refills Start Date [...] 11/14/2023 Active rifAXIMin 550 MG Oral Tablet (Xifaxan)Indication s:Cirrhosis of liver (HCC),Hepatic encephalopathy (HCC) Take 1 Tablet by mouth in the morning and 1 Tablet before bedtime. 180 Tablet 5 11/26/2023 Active rifAXIMin 550 MG Oral Tablet (Xifaxan)Indication s:Cirrhosis of liver (HCC),Hepatic encephalopathy (HCC) Take 1 Tablet by mouth in the morning and 1 Tablet before bedtime. 180 Tablet 5 09/02/2023 11/24/20 23 Discontinu ed(Refill) Hospital, Clinic, or Other Facility Administered Medication Ordered Dose Route Frequency Start Date End Date Status Albuterol Sulfate (Proventil) (2.5 MG/3ML) 0.083% inhalation solution 2.5 mgIndications:SOB (shortness of breath) 2.5 mg NEBULIZER PRN 03/18/2023 03/17/2024 Act roderikc Albuterol Sulfate (Proventil) (5 MG/ML) 0.5% *conc* inhalation solution 2.5 mgIndications:SOB (shortness of breath) 2.5 mg NEBULIZER PRN 03/18/2023 03/17/2024 Act roderick documented as of this encounter (statuses as of 11/26/2023) Active Problems Problem Noted Date Diagnosed Date [...] as of this encounter (statuses as of 11/26/2023) Resolved Problems Problem Noted Date Diagnosed Date [...] as of this encounter (statuses as of 11/26/2023) Immunizations Name Administration Dates Next Due COVID-19 mRNA, LNP-s, No Pre serve, 2-Dose Series ([employer] Songs) 03/08/2021,02/15/2021 HepA Inact/HepB Recomb>=18yrs old 12/04/2019,04/2019,05/20/2019 11/19/2019 PPD 06/18/2017, 3,01/09/2012,0306/2011 Pneumococcal Conjugate Vacc, 13 Valent (Prevnar) 05/01/2017 Pneumococcal Polysaccharide PPV23 (Pneumovax) 08/28/2022,10/25/2015,07/14/2012 Season Influenza, Quad, PF, Adjuvanted, 65+ Yrs, IM (FLUAD) 10/07/2020(Deferred: Patient Refused - [facility]) Seasonal Influenza [...] encounter Miscellaneous Notes * Telephone Encounter - Leydi Dickey CRNP - 11/26/2023 2:42 PM EST Signed Prescriptions: Disp Refills rifAXIMin 550 MG Oral Tablet (Xifaxan) 180 Ta*5 Sig: Take 1 Tablet by mouth in the morning and 1 Tablet before bedtime. Authorizing Provider: LEYDI DICKEY * Telephone Encounter - Michelle Peres RN - 11/26/2023 2:30 PM ESTPending Prescriptions: Disp Refills rifAXIMin 550 MG Oral Tablet (Xifaxan) 180 Ta*5 Sig: Take 1 Tablet by mouth in the morning and 1 Tablet before bedtime. * Telephone Encounter - Michelle Peres, RN - 11/26/2023 2:30 PM EST Did you pend patient's preferred pharmacy and medication before forwarding?yes Pharmacy: [facility] [address] [place] [address] [place] [address] Pending Prescriptions: Disp Refills rifAXIMin 550 MG Oral Tablet (Xifaxan) 180 Ta*5 Sig: Take 1 Tablet by mouth in the morning and 1 Tablet before bedtime. Last Visit: 08/30/2023 (in office), 05/08/2021 (telemedicine) Patient Phone Numbers Labs: Lab Results Component Value Date/Time CREAT 1.2 11/16/2023 11:57 AM CREAT 1.11 07/24/2023 12:00 AM CREAT 1.5 (H) 11/30/2020 11:06 AM POTASSIUM 3.9 11/16/2023 11:57 AM POTASSIUM 4.3 07/24/2023 12:00 AM POTASSIUM 4.1 11/30/2020 11:06 AM TSH 2.62 03/15/2023 11:21 AM TSH 2.36 10/24/2020 01:56 PM LDLCALC 43 01/28/2023 09:00 AM LDLCALC 34 08/15/2020 10:35 AM LDLDIRECT NOT APPLICABLE 06/06/2020 02:58 PM LDLDIRECT 44 01/15/2018 03:24 PM ALT 22 11/16/2023 11:57 AM ALT 28 11/30/2020 11:06 AM HGBA1C 5.3 05/28/2023 12:14 PM HGBA1C 5.4 07/18/2021 02:28 PM HGBA1C 6.0 (H) 11/07/2020 01:07 PM documented in this encounter Plan of Treatment Upcoming Encounters Date Type Department Care Team (Late st Contact Info) Description 12/13/2023 9:30 AM EST Office Visit Gastroenterology, [facility] 132 [facility] [place] [address] Lamar Tatum CRNP 132 [facility] [place] [address] 12/27/2023 2:30 PM EST Imaging Radiology [facility] 1st Floor, [place] 132 [facility] [place] [address] 01/07/2024 11:00 AM EST Procedure Only Urology, [facility] 132 [facility] [place] [address] Frank Peraza MD 27 [facility] [address] [place] [address] 01/13/2024 4:20 PM EST Office Visit General Internal Medicine [facility] 200 [facility] [place], [place] [address] Joaquin Snider PA-Ashley 74[address] [facility] [place], [place] [address] 01/20/2024 4:00 PM EST Office Visit Hematology/Oncology [facility] 200 [facility] [place], [place] [address] Jennifer Ramires MD 200 [facility] [place], [place] [address] 03/13/2024 2:00 PM EDT Office Visit Dermatology [facility] 200 [facility] [place], [place] [address] Francisco Watson MD 200 [facility] [place], [place] [address] 08/20/2024 10:15 AM EDT Office Visit Ophthalmology, [facility] 132 [facility] [place] [address] Cody Gonzalez, DO [address] [place] [address] Scheduled Procedures Name Priority Associated Diagnoses Date/Ti [...] Additional history exists CKD PHOS USE SMARTSET 35229 01/28/202401/03, 07/26/2022, 12/05/2021, Additional history exists Diabetic Foot Exam 03/06/2024 03/06/2023, 0 01/03/2022, 03/02/2021, Additional history exists GFR 05/17/2024 11/16/2023, 08/03, 07/24/2023, Additional history exists Albumin/Creatinine Ratio 07/12/2024 023, 10/01/2022, 09/11/2021, Additional history exists COLONOSCOPY-ANNUAL AGES 18-100 08/09/2024 08/09/2023, 11/07/2022, 11/07/2022, Additional history exists CKD HGB USE SMARTSET 91054 11/16/202411/16, 11/16/2023, 09/26/2023, Additional history exists Lipid [...] this encounter Medical Devices Implanted Type Area Lease Administration Supervisor Device Identifier Shelf Expiration Date Model / Serial / Lot Clareon Iol Aspheric Hydrophobic Acrylic Iol Implanted:Qty: 1 on 04/23/2023 by Cody Gonzalez DO at OR [facility] Lens Left: Eye 11/12/2025 CNA0T0 / [id number] / Viatorr Tips Endoprosthesis 8-10 Mm X 8cm / 2cm Implanted:Qty: 1 on 10/07/2020 by Go Alvarado MD at [facility] Right: Abdomen 03/03/2023 [id number] / / [id number] Description:Viatorr TIPS End oprosthesis 8-10 mm x 8cm / 2cm, Manufactored by [employer] Syr Pf 2ml Embospheres 100-300 - [id number] Implanted:Qty: 1 on 04/18/2021 by Kevin Lim DO at OR [facility] Left: Abdomen [employer] [id number] 11/25/2023 S220GH / / [id number] Syr Pf 2ml Embospheres 100-300 - [id number] Implanted:Qty: 1 on 03/28/2022 at [facility] [employer] [id number] 08/31/2024 S220GH / / [id number] -5 Clareon Iol Aspheric Hydrophobic Acrylic Iol Implanted:Qty: 1 on 04/02/2023 by Cody Gonzalez DO at OR [facility] Right: Eye JAZMIN 11/12/2025 CNA0T0 / [id number] / documented as of this encounter Visit Diagnoses Diagnosis Cirrhosis of liver (HCC) Cirrhosis of liver without mention of alcohol Hepatic encephalopathy (HCC) Hepatic encephalopathy documented in this encounter Advance Directives Documents on File Type Date Recorded Patient Felt Hat Pouncing Operator Hand Expl anation Advance Directives and Living Will 12/11/2022 ADVANCE DIRECTIVE / LIVING WILL LIVING WILL Power of Die Cut Operator 12/11/2022 POWER OF A TTORNEY Latest [...] the patient have Health Care Power of Die Cut Operator? No Full Code 07/22/2014 9:56 PM 07/24/2014 8:18 PM This order reflects the patients wishes and were consensually agreed upon. Question Answer Comments Discussion of Advance Directives occurred with: Patient Does the patient have a Living Will? No Does the patient have Health Care Power of Die Cut Operator? No Care Teams Securities Broker Relationship Specialty Start Date End Date Francisco Cisse MD 200 [place] [address] PCP - General Internal Medicine 09/04/21 documented as of this encounter
--- OUTSIDE RECORDS SUMMARY | 2023-12-12 16:57 | External Medical Summary | Summary of Care ---
Author Name Unknown Organization [facility] Address [address] [facility] [address] Phone [phone] Care Team Providers Care Customer Service Supervisor Name Role Phone Francisco Cisse MD Primary Care Provider + Reason for Visit * Reason Onset Date Comments Medication Refill 11/30/2023 Encounter Details Date Type Department Care Team (Late st Contact Info) Description 11/30/2023 Refill General Internal Medicine [facility] 200 [facility] [place] [address] Francisco Cisse MD 200 [place] [address] Allergies No known active allergiesdocumented as of [...] mRNA, LNP-s, No Pre serve, 2-Dose Series ([place]) 03/08/2021,02/15/2021 HepA Inact/HepB Recomb>=18yrs old 12/04/2019,04/2019,05/20/2019 11/19/2019 PPD 06/18/2017, 3,01/09/2012,06/2011 Pneumococcal Conjugate Vacc, 13 Valent (Prevnar) 05/01/2017 Pneumococcal Polysaccharide PPV23 (Pneumovax) 08/28/2022,10/25/2015,07/14/2012 Season Influenza, Quad, PF, Adjuvanted, 65+ Yrs, IM (FLUAD) 10/07/2020(Deferred: Patient Refused - pt says he already had his shot last month at [facility] [...] encounter Miscellaneous Notes * Telephone Encounter - Jeannie Meza RPh - 12/03/2023 11:52 AM ESTRefused Prescriptions: Disp Refills Lantus 100 UNIT/ML Subcutaneous Solution 3 Each 5 Sig: Inject 25 Units under the skin every evening. With dinnerRefused By: JEANNIE MEZAReason for Refusal: Too soonReason for Refusal Comment: 02/03 sent 11/14 documented in this encounter Plan of Treatment Upcoming Encounters Date Type Department Care Team (Late st Contact Info) Description 12/13/2023 9:30 AM EST Office Visit Gastroenterology, [facility] [address] [place] [address] Lamar Tatum CRNP [address] [place] [address] 12/27/2023 2:30 PM EST Imaging Radiology [facility] 1st [facility] [place] [address] [place] [address] 01/07/2024 11:00 AM EST Procedure Only Urology, [facility] [address] [place] [address] Frank Peraza MD [address] [place] [address] [place] [address] 01/13/2024 4:20 PM EST Office Visit General Internal Medicine [facility] 200 [facility] [place] [address] Joaquin Snider PA-Ashley [facility] [place] [address] 01/20/2024 4:00 PM EST Office Visit Hematology/Oncology [facility] 200 [facility] [place] [address] Jennifer Ramires MD 200 [facility] [place] [address] 03/13/2024 2:00 PM EDT Office Visit Dermatology [facility] 200 [facility] [place] [address] Francisco Watson MD 200 [facility] [place] [address] 08/20/2024 10:15 AM EDT Office Visit Ophthalmology, [facility] 132 [facility] [place] [address] Cody Gonzalez DO [address] [place] [address] Scheduled Procedures Name Priority Associated Diagnoses Date/Ti [...] Additional history exists CKD PHOS USE SMARTSET 96719 01/28/202401/03, 07/26/2022, 12/05/2021, Additional history exists Diabetic Foot Exam 03/06/2024 03/06/2023, 0 01/03/2022, 03/02/2021, Additional history exists GFR 05/17/2024 11/16/2023, 08/03, 07/24/2023, Additional history exists Albumin/Creatinine Ratio 07/12/2024 023, 10/01/2022, 09/11/2021, Additional history exists COLONOSCOPY-ANNUAL AGES 18-100 08/09/2024 08/09/2023, 11/07/2022, 11/07/2022, Additional history exists CKD HGB USE SMARTSET 65354 11/16/202411/16, 11/16/2023, 09/26/2023, Additional history exists Lipid [...] this encounter Medical Devices Implanted Type Area Extruder Operator Helper Device Identifier Shelf Expiration Date Model / Serial / Lot Clareon Iol Aspheric Hydrophobic Acrylic Iol Implanted:Qty: 1 on 04/23/2023 by Cody Gonzalez DO at OR [facility] Lens Left: Eye 11/12/2025 CNA0T0 / [id number] / Viatorr Tips Endoprosthesis 8-10 Mm X 8cm / 2cm Implanted:Qty: 1 on 10/07/2020 by Go Alvarado MD at [facility] Right: Abdomen 03/03/2023 [id number] / / [id number] Description:Viatorr TIPS End oprosthesis 8-10 mm x 8cm / 2cm, Manufactored by [employer] Syr Pf 2ml Embospheres 100-300 - [id number] Implanted:Qty: 1 on 04/18/2021 by Kevin Lim DO at OR [facility] Left: Abdomen [employer] [id number] 11/25/2023 S220GH / / [id number] -[id number] Syr Pf 2ml Embospheres 100-300 - [id number] Implanted:Qty: 1 on 03/28/2022 at [facility] [employer] [id number] 08/31/2024 S220GH / / [id number] -5 Clareon Iol Aspheric Hydrophobic Acrylic Iol Implanted:Qty: 1 on 04/02/2023 by Cody Gonzalez DO at OR [facility] Right: Eye JAZMIN 11/12/2025 CNA0T0 / [id number] / documented as of this encounter Advance Directives Documents on File Type Date Recorded Patient Pull Over Machine Operator Expl anation Advance Directives and Living Will 12/11/2022 ADVANCE DIRECTIVE / LIVING WILL LIVING WILL Power of Lacquer Dipping Machine Operator 12/11/2022 POWER OF A TTORNEY [...] the patient have Health Care Power of Lacquer Dipping Machine Operator? No Full Code 07/22/2014 9:56 PM 07/24/2014 8:18 PM This order reflects the patients wishes and were consensually agreed upon. Question Answer Comments Discussion of Advance Directives occurred with: Patient Does the patient have a Living Will? No Does the patient have Health Care Power of Lacquer Dipping Machine Operator? No Care Teams Customer Service Supervisor Relationship Specialty Start Date End Date Frnacisco Cisse MD [address] [place] [address] PCP - General Internal Medicine 09/04/21 documented as of this encounter
--- OUTSIDE RECORDS SUMMARY | 2023-12-12 16:57 | External Medical Summary ---
Author Name Unknown Address Unknown Organization K01:[facility]ATORY [facility] - [address] [facility] [address] [place] [address] Laboratory Report Ordering Provider Test Date Status NEELAM RICCI 12/06/2023 11:35:00 Final Observation Date Value Abnormality Reference (Units ) Status Ferritin 12/06/2023 11:35:00 56 30-400 (ng /mL) Final Performing Location [facility] - [address] [place] [address]
--- OUTSIDE RECORDS SUMMARY | 2023-12-12 16:57 | External Medical Summary | Summary of Care ---
Author Name Unknown Organization [facility] Address [address] [address] [place] [address] Phone [phone] Care Team Providers Care Quiller Machine Fixer Name Role Phone Francisco Cisse MD Primary Care Provider + Reason for Visit * Reason Comments Hospital Follow-Up [facility] discharge 12/01 follow up. Patient states he is doing pretty good. Encounter Details Date Type Department Care Team (Latest Contact Info) Description 12/06/2023 11:00 AM EST Office Visit General Internal Medicine [facility] 200 [facility] [place] [address] Joaquin Snider PA-C [facility] [place] [address] Hospital discharge follow-up*; Chronic blood loss anemia; Radiation cystitis; GAVE (gastric antral vascular ectasia); S/P TIPS (transjugular intrahepatic portosystemic shunt); Cirrhosis of liver with ascites, unspecified hepatic cirrhosis type ; Esophageal varices without bleeding, unspecified esophageal varices type (HCC); Type 2 diabetes mellitus with stage 3a chronic kidney disease, with long-term current use of insulin (HCC); Radiation proctitis; Psoriasis; History of prostate cancer; Closed fracture of twelfth thoracic vertebra, unspecified fracture morphology, initial encounter (HCC); Prostate cancer (HCC); Acquired thrombocytopenia (HCC); Pulmonary hypertension (HCC); Pancytopenia (HCC); Liver cell carcinoma (HCC) Allergies No known active allergiesdocumented [...] mRNA, LNP-s, No Pre serve, 2-Dose Series ([employer]) 03/08/2021,02/15/2021 HepA Inact/HepB Recomb>=18yrs old 12/04/2019,04/2019,05/20/2019 11/19/2019 PPD 06/18/2017, 3,01/09/2012,06/2011 Pneumococcal Conjugate Vacc, 13 Valent (Prevnar) 05/01/2017 Pneumococcal Polysaccharide PPV23 (Pneumovax) 08/28/2022,10/25/2015,07/14/2012 Season Influenza, Quad, PF, Adjuvanted, 65+ Yrs, IM (FLUAD) 10/07/2020(Deferred: Patient Refused - pt says he already had his shot last month at [facility] [...] Sign Reading Time Taken Comments Blood Pressure 126/52 12/06/2023 11:02 AM EST Pulse 65 12/06/2023 11:02 AM EST Temperature 36.8 C (98.2 F) 12/06/2023 1 1:02 AM EST Respiratory Rate - - Oxygen Saturation 99% 12/06/2023 11: 02 AM EST Inhaled Oxygen Concentration - - Weight 82.9 kg (182 lb 11.2 oz) 024 11:02 AM EST Height 171 cm (5' 7.32") 12/06/2023 11: 02 AM EST Body Mass Index 28.34 12/06/2023 11:02 AM EST documented in this encounter Functional Status [...] as of this encounter Progress Notes * Joaquin Snider, PA-C - 12/06/2023 10:55 AM EST Subjective: Luis Hale is a 73 year old male. Chief Complaint Patient presents with Hospital Follow-Up [facility] discharge 12/01/2023 follow up. Patient states he is doing pretty good. HPI: 73 y/o male with DM II, HLD, GAVE, cirrhosis s/p TIPS, esopgeal varices, CKD III, anemia, HCC,hx prostate cancer with resultant radiation proctitis seen today for hospital follow up. Was admitted to [facility] 11/26/23 with disharge on November 30. Was having some demand ischemia secondary to worsening anemia from hematuria/radiation cystitis which let up without intervention. Urology and Cardiology consulted with no intervention. Had two units of packed RBC with hgb back up to baseline 7s at the time of discharge. He had 2 liter paracentesis with albumin replacement. 250 mL replacement of fluid as well which resolved symptoms and dizziness. PMH: Patient Active Problem List Diagnosis Code [...] disease, restrictive J98.4 Closed T12 spinal fracture ([facility]) S22.797C Current Outpatient Medications Medication Sig Dispense Refill [...] Use 2 L/min(Oxygen) as directed at bedtime. Metoclopramide HCl 5 MG Oral Tablet (Reglan) One tab as often as 3 times a day, if needed for nausea 90 Tablet 3 Pantoprazole Sodium 40 MG Oral Tablet Delayed [...] every evening. With dinner 3 Each 5 rifAXIMin 550 MG Oral Tablet (Xifaxan) Take 1 Tablet by mouth in the morning and 1 Tablet before bedtime. 180 Tablet 5 Albumin Human 25 % Intravenous Solution 25Gm before and after paracentesis (Patient not taking: Reported on 12/06/2023) 100 mL 0 Current Facility-Administered Medications Medication Dose Route Frequency Provider Last Rate Last Admin Albuterol Sulfate (Proventil) (2.5 MG/3ML) 0.083% inhalation solution 2.5 mg 2.5 mg Nebulizer PRN William Jennings PA-C Albuterol Sulfate (Proventil) (5 MG/ML) 0.5% *conc* inhalation solution 2.5 mg 2.5 mg Nebulizer PRNHWilliam PA-C 2.5 mg at 03/20/23 0913 Review of patient's allergies indicates: No Known Allergies All other review of systems reviewed and negative other than mentioned in HPI. Objective: BP 126/52 | Pulse 65 | Temp 36.8 C (98.2 F) | Ht 1.71 m (5' 7.32") | Wt 82.9 kg (182 lb 11.2 oz) | SpO2 99% | BMI 28.34 kg/m | BSA 1.98 m Results for orders placed or performed in visit on 11/18/23 CULTURE, URINE, QUANTITATIVE Specimen: Urine, Clean Catch Result Value Ref Range Culture Growth No significant growth MICROSCOPIC EXAM, URINE Result Value Ref Range RBC, Urine 50+ (A) 0 - 2 /HPF WBC, Urine 0-2 0 - 2 /HPF Bacteria, Urine 0-25 0 - 25 /HPF URINALYSIS, POINT OF CARE (ENTER/EDIT) Result Value Ref Range Color, Urine Red Yellow or Light Yellow Clarity, Urine Turbid Clear Glucose, Urine Negative Negative mg/dL Bilirubin, Urine Large Negative Ketone, Urine 15 Negative mg/dL Specific [place], Urine 1.015 1.003 - 1.030 Blood, Urine [...] or toxic-appearing. HENT: Head: Normocephalic and atraumatic. Right Ear: Tympanic membrane normal. Eyes: Extraocular Movements: Extraocular movements intact. Conjunctiva/sclera: Conjunctivae normal. Pupils: Pupils are equal, round, and reactive to light. Cardiovascular: Rate and Rhythm: Normal rate and regular rhythm. Heart sounds: Murmur heard. No friction rub. No gallop. Pulmonary: Effort: Pulmonary effort is normal. Breath sounds: Normal breath sounds. No wheezing, rhonchi or rales. Abdominal: General: Bowel sounds are normal. There is no distension. Palpations: Abdomen is soft. There is no mass. Tenderness: There is no abdominal tenderness. There is no guarding or rebound. Neurological: Mental Status: He is alert. ASSESSMENT: Hospital discharge follow-up (Primary) - CBC; Future; Expected date: 12/06/2023 Doing better symptomatically. No recurrent bleeding so far. Chronic blood loss anemia - CBC; Future; Expected date: 12/06/2023 Recheck CBC today. 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 Has proctitis complications as well. Stable. Has upcoming cysto with urology. GAVE (gastric antral vascular ectasia) Following with GI. Cirrhosis of liver with ascites, unspecified hepatic cirrhosis type S/p tips. Waiting transplant. Esophageal varices without bleeding, unspecified esophageal varices type (HCC) Follow with GI. Type 2 diabetes mellitus with stage 3a chronic kidney disease, with long-term current use of insulin (HCC) Controlled. Radiation proctitis Psoriasis Derm upcoming. History of prostate cancer S/p radiation Closed fracture of twelfth thoracic vertebra, unspecified fracture morphology, initial encounter (HCC) No back pain Prostate cancer (HCC) As above. 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 Pancytopenia (HCC) Liver cell carcinoma (HCC) S/p treatment by IR. Going to be monitored by GI since IR no longer available in [place] per patient. Follow-up: Return if symptoms worsen or fail to improve. | Check-out note: January appt needs rescheduled with Tanna Snider PA-C documented in this encounter Nursing Notes * Henna Alan LPN - 12/06/2023 11:02 AM EST Chief Complaint Patient presents with Hospital Follow-Up [facility] discharge 12/01/2023 follow up. Patient states he is doing pretty good. documented in this encounter Plan of Treatment Upcoming Encounters Date Type Department Care Team (Late st Contact Info) Description 12/13/2023 9:30 AM EST Office Visit Gastroenterology, [facility] [address] [facility] [place] [address] Lamar Tatum CRNP 132 [facility] [place] [address] 12/27/2023 2:30 PM EST Imaging Radiology [facility] 1st [facility] [address] [facility] [place] [address] 01/07/2024 11:00 AM EST Procedure Only Urology, [facility] [address] [facility] [place] [address] Frank Peraza MD [address] [address] [place] [address] 01/20/2024 4:00 PM EST Office Visit Hematology/Oncology [facility] [place] [address] [place] [address] Jennifer Ramires MD [address] [place] [address] 02/03/2024 2:20 PM EST Office Visit General Internal Medicine [facility] 200 [facility] [place] [address] Gege Herbert MD 200 [facility] [place] [address] 03/13/2024 2:00 PM EDT Office Visit Dermatology [facility] [address] [facility] [place] [address] Francisco Watson MD 200 [facility] [place] [address] 08/20/2024 10:15 AM EDT Office Visit Ophthalmology, [facility] [address] [facility] [place] [address] Cody Gonzalez, DO [address] [facility] [place] [address] Scheduled Procedures Name Priority Associated Diagnoses Date/Ti [...] Additional history exists CKD PHOS USE SMARTSET 63763 01/28/202401/03, 07/26/2022, 12/05/2021, Additional history exists Diabetic Foot Exam 03/06/2024 03/06/2023, 0 01/03/2022, 03/02/2021, Additional history exists GFR 05/17/2024 11/16/2023, 08/03, 07/24/2023, Additional history exists HbA1c 05/28/2024 11/27/2023, 05/03, 01/28/2023, Additional history exists Albumin/Creatinine Ratio 07/12/2024 023, 10/01/2022, 09/11/2021, Additional history exists COLONOSCOPY-ANNUAL AGES 18-100 08/09/2024 08/09/2023, 11/07/2022, 11/07/2022, Additional history exists CKD HGB USE SMARTSET 78227 12/06/202412/06, 12/06/2023, 11/16/2023, Additional history exists Lipid Panel 01/28/2028 01/28/2023, [...] this encounter Medical Devices Implanted Type Area Clay Washer Device Identifier Shelf Expiration Date Model / Serial / Lot Clareon Iol Aspheric Hydrophobic Acrylic Iol Implanted:Qty: 1 on 04/23/2023 by Cody Gonzalez, DO at OR [facility] Lens Left: Eye 11/12/2025 [id number] / [id number] / Viatorr Tips Endoprosthesis 8-10 Mm X 8cm / 2cm Implanted:Qty: 1 on 10/07/2020 by Go Alvarado MD at [facility] Right: Abdomen 03/03/2023 [id number] / / [id number] Description:Viatorr TIPS End oprosthesis 8-10 mm x 8cm / 2cm, Manufactored by [employer] Syr Pf 2ml Embospheres 100-300 - [id number] Implanted:Qty: 1 on 04/18/2021 by Kevin Lim DO at OR [facility] Left: Abdomen [employer] [id number] 11/25/2023 S220GH / / [id number] -5 Syr Pf 2ml Embospheres 100-300 - [id number] Implanted:Qty: 1 on 03/28/2022 at [facility] [employer] [id number] 08/31/2024 S220GH / / [id number] -5 Clareon Iol Aspheric Hydrophobic Acrylic Iol Implanted:Qty: 1 on 04/02/2023 by Cody Gonzalez DO at OR [facility] Right: Eye JAZMIN 11/12/2025 CNA0T0 / [id number] / documented as of this encounter Visit Diagnoses Diagnosis Hospital discharge follow-up- Primary Other follow-up examination 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 Irradiation cystitis GAVE (gastric antral vascular ectasia) Angiodysplasia of stomach and duodenum (without mention of hemorrhage) S/P TIPS (transjugular intrahepatic portosystemic shunt) Other postprocedural status Cirrhosis of liver with ascites, unspecified hepatic cirrhosis type Esophageal varices without bleeding, unspecified esophageal varices type (HCC) Type 2 diabetes mellitus with stage 3a chronic kidney disease, with long-term current use of insulin (HCC) Radiation proctitis Other specified disorder of rectum and anus Psoriasis Other psoriasis History of prostate cancer Personal history of malignant neoplasm of prostate Closed fracture of twelfth thoracic vertebra, unspecified fracture morphology, initial encounter (HCC) Prostate cancer (HCC) Malignant neoplasm of prostate Acquired thrombocytopenia (HCC) Other secondary thrombocytopenia Pulmonary hypertension (HCC) Other chronic pulmonary heart diseases Pancytopenia (HCC) Other pancytopenia Liver cell carcinoma (HCC) Malignant neoplasm of liver, primary documented in this encounter Advance Directives Documents on File Type Date Recorded Patient Furniture Sprayer Expl anation Advance Directives and Living Will 12/11/2022 ADVANCE DIRECTIVE / LIVING WILL LIVING WILL Power of Hospital Coder 12/11/2022 POWER OF A TTORNEY Latest Code [...] the patient have Health Care Power of Hospital Coder? No Full Code 07/22/2014 9:56 PM 07/24/2014 8:18 PM This order reflects the patients wishes and were consensually agreed upon. Question Answer Comments Discussion of Advance Directives occurred with: Patient Does the patient have a Living Will? No Does the patient have Health Care Power of Hospital Coder? No Care Teams Quiller Machine Fixer Relationship Specialty Start Date End Date Francisco Cisse MD [address] [place] [address] PCP - General Internal Medicine 09/04/21 documented as of this encounter
--- OUTSIDE RECORDS SUMMARY | 2023-12-12 16:57 | External Medical Summary | Summary of Care ---
Author Name Unknown Organization [facility] Address [address] [facility] [place] [address] Phone [phone] Care Team Providers Care Peoplesoft Functional Analyst Name Role Phone Francisco Cisse MD Primary Care Provider + Reason for Visit * Reason Onset Date Comments Hospital Follow-Up 12/03/2023 Encounter Details Date Type Department Care Team (Late st Contact Info) Description 12/03/2023 Telephone Hematology/Oncology Treatment, [place] [address] [place] [address] Jennifer Ramires MD [address] [place] [address] Hospital Follow-Up Allergies No known active allergiesdocumented as of this encounter (statuses as of 12/04/2023) Medications Medication Sig Dispensed Refills Start Date [...] as of this encounter (statuses as of 12/04/2023) Active Problems Problem Noted Date Diagnosed Date [...] as of this encounter (statuses as of 12/04/2023) Resolved Problems Problem Noted Date Diagnosed Date [...] as of this encounter (statuses as of 12/04/2023) Immunizations Name Administration Dates Next Due COVID-19 mRNA, LNP-s, No Pre serve, 2-Dose Series ([employer]) 03/08/2021,02/15/2021 HepA Inact/HepB Recomb>=18yrs old 12/04/2019,04/2019,05/20/2019 11/19/2019 PPD 06/18/2017, 3,01/09/2012,0306/2011 Pneumococcal Conjugate Vacc, 13 Valent (Prevnar) 05/01/2017 Pneumococcal Polysaccharide PPV23 (Pneumovax) 08/28/2022,10/25/2015,07/14/2012 Season Influenza, Quad, PF, Adjuvanted, 65+ Yrs, IM (FLUAD) 10/07/2020(Deferred: Patient Refused - pt says he already had his shot last month at [facility] [employer] [...] Telephone Encounter - Josephine Murphy RN - 12/04/2023 9:[address] Ramires's routing comment: "Agree with plan " MyG sent. * Telephone Encounter - Josephine Murphy RN - 12/03/2023 1:15 PM EST Patient admitted at [facility] 11/26/23- 11/30/23 for radiation cystitis/ pancytopenia. Hgb [...] 12/13/2023 9:30 AM EST Office Visit Gastroenterology, [facility] [address] [place] [address] Lamar Tatum CRNP 132 [facility] [place] [address] 12/27/2023 2:30 PM EST Imaging Radiology [facility] 1st [facility], [place] [address] [place] [address] 01/07/2024 11:00 AM EST Procedure Only Urology, [facility] 132 [facility] [place] [address] Frank Peraza MD [address] [place] [address] [place] [address] 01/13/2024 4:20 PM EST Office Visit General Internal Medicine [facility] [address] [place] [address] Joaquin Snider PA-C [address] [place] [address] 01/20/2024 4:00 PM EST Office Visit Hematology/Oncology [facility] [address] [place] [address] Jennifer Ramires MD 200 [place] [address] 03/13/2024 2:00 PM EDT Office Visit Dermatology [facility] [address] [facility] [place] [address] Francisco Watson MD [address] [place] [address] 08/20/2024 10:15 AM EDT Office Visit Ophthalmology, [facility] [address] [facility] [place] [address] Cody Gonzalez DO [address] [place] [address] Scheduled Procedures Name Priority Associated Diagnoses Date/Ti [...] Additional history exists CKD PHOS USE SMARTSET 92537 01/28/202401/03, 07/26/2022, 12/05/2021, Additional history exists Diabetic Foot Exam 03/06/2024 03/06/2023, 0 01/03/2022, 03/02/2021, Additional history exists GFR 05/17/2024 11/16/2023, 08/03, 07/24/2023, Additional history exists Albumin/Creatinine Ratio 07/12/2024 023, 10/01/2022, 09/11/2021, Additional history exists COLONOSCOPY-ANNUAL AGES 18-100 08/09/2024 08/09/2023, 11/07/2022, 11/07/2022, Additional history exists CKD HGB USE SMARTSET 70194 11/16/202411/16, 11/16/2023, 09/26/2023, Additional history exists Lipid [...] this encounter Medical Devices Implanted Type Area Linux Architect Device Identifier Shelf Expiration Date Model / Serial / Lot Clareon Iol Aspheric Hydrophobic Acrylic Iol Implanted:Qty: 1 on 04/23/2023 by Cody Gonzalez DO at OR [facility] Lens Left: Eye 11/12/2025 CNA0T0 / [id number] / Viatorr Tips Endoprosthesis 8-10 Mm X 8cm / 2cm Implanted:Qty: 1 on 10/07/2020 by Go Alvarado MD at [facility] Right: Abdomen 03/03/2023 [id number] / / [id number] Description:Viatorr TIPS End oprosthesis 8-10 mm x 8cm / 2cm, Manufactored by [employer] Syr Pf 2ml Embospheres 100-300 - [id number] Implanted:Qty: 1 on 04/18/2021 by Kevin Lim DO at OR [facility] Left: Abdomen [employer] [id number] 11/25/2023 S220GH / / [id number] -5 Syr Pf 2ml Embospheres 100-300 - [id number] Implanted:Qty: 1 on 03/28/2022 at [facility] [employer] [id number] 08/31/2024 S220GH / / [id number] -5 Clareon Iol Aspheric Hydrophobic Acrylic Iol Implanted:Qty: 1 on 04/02/2023 by Cody Gonzalez DO at OR [facility] Right: Eye JAZMIN 11/12/2025 CNA0T0 / [id number] / documented as of this encounter Advance Directives Documents on File Type Date Recorded Patient Space Physicist Expl anation Advance Directives and Living Will 12/11/2022 ADVANCE DIRECTIVE / LIVING WILL LIVING WILL Power of Terminal Make Up Operator 12/11/2022 POWER OF A TTORNEY Latest [...] the patient have Health Care Power of Terminal Make Up Operator? No Full Code 07/22/2014 9:56 PM 07/24/2014 8:18 PM This order reflects the patients wishes and were consensually agreed upon. Question Answer Comments Discussion of Advance Directives occurred with: Patient Does the patient have a Living Will? No Does the patient have Health Care Power of Terminal Make Up Operator? No Care Teams Peoplesoft Functional Analyst Relationship Specialty Start Date End Date Francisco Cisse MD [address] [place] [address] PCP - General Internal Medicine 09/04/21 documented as of this encounter
--- OUTSIDE RECORDS SUMMARY | 2023-12-12 16:57 | External Medical Summary ---
Author Name Unknown Address Unknown Organization K09:[facility] [address] [place] [address] Laboratory Report Ordering Provider Test Date Status NEELAM RICCI 12/06/2023 11:35:00 Final Observation Date Value Abnormality Reference (Units ) Status WBC, Total 12/06/2023 11:35:00 3.64 Below low normal 4. 00-10.80 (K/uL) Final RBC 12/06/2023 11:35:00 2.92 4.50-5.25 (M/uL) Final Hemoglobin 12/06/2023 11:35:00 9.0 Below low normal 14 .0-16.8 (g/dL) Final HCT 12/06/2023 11:35:00 29.7 Below low normal 40. 0-48.4 (%) Final MCV 12/06/2023 11:35:00 101.7 82.0-99.5 (fL) Final MCH 12/06/2023 11:35:00 30.8 27.0-34.0 (pg) Final MCHC 12/06/2023 11:35:00 30.3 32.0-36.0 (g/dL) Final RDW 12/06/2023 11:35:00 18.9 11.5-15.5 (%) Final Platelets 12/06/2023 11:35:00 85 Below low normal 140 -400 (K/uL) Final MPV 12/06/2023 11:35:00 11.7 6.6-11.1 ( fL) Final Performing Location [facility] [address] [place] [address]
--- OUTSIDE RECORDS SUMMARY | 2023-12-12 16:57 | External Medical Summary ---
Author Name Unknown Address Unknown Organization K09:[facility] [address] [place] [address] Laboratory Report Ordering Provider Test Date Status NEELAM RICCI 12/06/2023 11:35:00 Final Observation Date Value Abnormality Reference (Units ) Status SYNC LEUKOCYTES IN BLOOD BY AUTOMATED COUNT 12/06/2023 11:35:00 3.64 Below low normal 4.00-10.80 (K/uL) Final Segs 12/06/2023 11:35:00 57.4 40.0-75.0 (%) Final Lymphs % 12/06/2023 11:35:00 24.5 18.0-42.0 (%) Final Monos 12/06/2023 11:35:00 8.8 1.0-11.0 (%) Final Eosinophils 12/06/2023 11:35:00 8.5 Above high normal 0.0-6.0 (%) Final Basos 12/06/2023 11:35:00 0.8 0.0-2.0 (%) Final Absolute Segs 12/06/2023 11:35:00 2.09 1.80-7.70 (K/uL) Final Lymphs, absolute 12/06/2023 11:35:00 0.89 Below low normal 1.00-4.80 (K/ul) Final Monos, Abs 12/06/2023 11:35:00 0.32 0.00-1.10 (K/uL) Final Eos, Abs 12/06/2023 11:35:00 0.31 0.00-0.70 (K/uL) Final Basos, Abs 12/06/2023 11:35:00 0.03 0.00-0.20 (K/uL) Final Performing Location [facility] [address] [place] [address]
[2023-12-12] MEDS ORDERED: DEXTROSE 50% 50 ML SYRINGE IV PRN (17:02)
[2023-12-12] MEDS ORDERED: GLUCAGON FOR INJ 1 MG VIAL SQ PRN (17:02)
[2023-12-12] MEDS ORDERED: GLUCOSE 10 TAB/TUBE PO PRN (17:02)
[2023-12-12] MEDS ORDERED: PHARMACY GLYCEMIC MGMT CONSULT PRN (17:02)
[2023-12-12] MEDS ORDERED: TRIAMCINOLONE ACET 0.1% CR 15 GM TUBE TOP PRN (17:02)
[2023-12-12] MEDS ORDERED: METOCLOPRAMIDE HCL 5 MG TABLET PO PRN (17:02)
[2023-12-12] MEDS ORDERED: CARBOHYDRATES FOR HYPOGLYCEMIA PO PRN (17:02)
[2023-12-12] MEDS ORDERED: GLUCOSE 40% GEL 15 GM TUBE PO PRN (17:02)
[2023-12-12] MEDS ORDERED: ACETAMINOPHEN 325 MG TAB PO PRN ×2 (17:02)
[2023-12-12] MEDS ORDERED: ALUMINUM/MAGNESIUM SUSP 30 ML UDC PO PRN (17:02)
--- NOTE | 2023-12-12 17:25 | Pharmacy Report ---
Pharmacy Glycemic Short Note 2 - Date of Service December 12, 2023 - Glycemic Short BSG Results (Last 24 hours): 12/12/23 11:02 Glucose 223 H OUTPATIENT ANTIDIABETIC REGIMEN: * Lantus 26 units SC HS * HbA1c: 5.3% (11/27/23) ASSESSMENT: * 73 yo M admitted on 12/12/23 secondary to hematuria and BRBPR. Pharmacy has been consulted to assist with inpatient glycemic management. Patient is a Type 2 diabetic as an outpatient. Please refer to outpatient regimen and most recent HbA1c above. * BSG on BMP upon presentation was 223 mg/dL. Patient will be ordered a diet for dinner tonight but will be made NPO after midnight. Given this and A1c, will be conservative will basal dose this evening. Planning on continuing once daily basal at bedtime as this mirrors outpatient regimen. * Novolog will be started based on weight/stress of 2 which patient has tolerated well during recent admissions. PLAN FOR INPATIENT GLYCEMIC CONTROL: * Basal insulin * Lantus 10 units SC HS * Bolus insulin * NovoLog per scale ACHS or Q6hrs while NPO * Goal Range: Low 120 mg/dL - High 150 mg/dL * Correction Factor: 25 mg/dL/unit * Nutritional / Prandial insulin per carb ratio of 1 unit per 9 grams CHO consumed
[2023-12-12 17:40] LABS: INR 1.2 (0.9-1.1); Prothrombin Time 12.5 Seconds (9.0-12.0)
[2023-12-12] MEDS: INSULIN ASPART PER UNIT CHARGE SC SCH ×2 (18:42→20:55)
--- NOTE | 2023-12-12 19:35 | Urology Consultation ---
Date of Consultation December 12, 2023 Assessment & Plan (1) Hematuria: Patient has been admitted on the hospitalist service. We are awaiting gastroenterology consultation due to the patient's rectal bleeding. We will defer management of this condition to the primary service as well as gastroenterology Concerning patient's hematuria recommend the following: Would recommend following serial hemoglobin and hematocrits Would recommend avoiding antiplatelets and anticoagulants if clinically possible A urinalysis has been checked and it does not appear the patient had evidence of urinary tract infection With the patient's underlying history of prostate cancer and radiation therapy along with the CT scan findings recurrence of prostate malignancy should be considered along with the potential of radiation cystitis. The patient does note that he is scheduled for an outpatient cystoscopy with his urologist Dr. Frank Peraza. At the present time patient is noted to be hemodynamically stable so an urgent cystoscopy is not required at this time and I have merely recommended to the patient that he should maintain follow-up with Dr. Peraza and undergo cystoscopy as recommended by him If patient does develop signs or symptoms of urinary retention, bladder scans can be employed to see if he is retaining urine and if this is the case a Kan catheter can be placed and can be flushed and irrigated manually as needed. At the present time the patient notes that he is emptying his bladder without difficulty and not passing any blood clots at this modality does not appear to be required at this time History of Present Illness Reason for Consultation: Gross hematuria Attending Physician: Marcus Sheppard MD History of Present Illness This is a 73-year-old male who presented to the [facility] emergency department earlier today. The patient presented as he was noted to have bright red blood per rectum as well as gross hematuria over the past 2 days. The patient notes that he was recently admitted to the hospital at [facility] from 1226 through 1230. At the time of discharge he noted that his hematuria had resolved. He was seen by [facility] physician group urology during that admission. No active urologic intervention was undertaken as patient is currently followed by [facility] urology, Dr. Frank Peraza. The patient does report that he has a history of prostate cancer for which he underwent radiation therapy. He notes that he did not have a prostatectomy. The patient reports that he is scheduled to have a cystoscopy with Dr. Frank Peraza in early January of this year. Concerning his current hematuria he notes that it is painless. He denies any back or flank pain. He denies any fevers, shakes, or chills. He also notes that his urine stream is normal for him and he feels as though he can empty his bladder completely. With his hematuria he denies the passage of any blood clots. He also denies taking any anticoagulants. Since admission to the hospital the patient has had labs and imaging. I did independently review the studies. He did have a CT scan of the abdomen pelvis which did not identify any infectious or inflammatory findings in this region of his body. On this study the bladder was noted to be asymmetric with concern for either wall thickening or some intraluminal debris. Labs include a CBC her white blood cell count was 3.2. His most recent hemoglobin and hematocrit was from approximately 11:00 AM today which was 7.5 and 23.6. (These levels did represent stability over the past 2 weeks). His INR is noted to be 1.2. Chemistry profile showed sodium and potassium along with the BUN and creatinine were normal. Patient's urine was noted be turbid with greater than 30 red blood cells per high-power field. There is no bacteria and only 5-10 white blood cells per high-power field on the study. At the time of my interview the patient was resting comfortably in bed and he was in no distress. Allergies Allergy/AdvReac Type Severity Reaction Status Date / Time No Known Allergies Allergy Mild Verified 12/12/23 12:04 Home Medications Medication Instructions Recorded Confirmed Type allopurinol 100 mg tablet 200 mg PO BID 05/16/20 12/12/23 History finasteride 5 mg tablet 5 mg PO QAM 11/03/21 12/12/23 History furosemide 20 mg tablet (Lasix) 40 mg PO QAM 11/02/22 12/12/23 History insulin glargine 100 unit/mL 26 unit subcut QPM 11/05/22 12/12/23 History subcutaneous solution (Lantus U-100 Insulin) acetaminophen 325 mg tablet 650 mg PO Q8H PRN Pain 02/24/23 12/12/23 History (Tylenol) triamcinolone acetonide 0.1 % 1 applic topical BID PRN PSORIATIC 02/24/23 12/12/23 History topical cream LESIONS WHEN NEEDED pantoprazole 40 mg tablet,delayed 40 mg PO BID 90 days #180 tabs 02/28/23 12/12/23 Rx release Lactobacil.acidophilus-Bifido.animalis 1 cap PO QAM 05/17/23 12/12/23 History 5 billion cell sprinkle capsule (Probiotic) acetylcysteine 600 mg capsule 600 mg PO QAM 05/17/23 12/12/23 History ferrous sulfate 325 mg (65 mg 325 mg PO QAM 05/17/23 12/12/23 History iron) tablet (iron) rahxsjsfoida-zog-kbawb acid-vit 1 tab PO DAILY 05/17/23 12/12/23 History K-lycop 400 mcg-20 mcg-370 mcg tablet (Men's 50 Plus Multivitamin) rifaximin 550 mg tablet (Xifaxan) 550 mg PO BID 05/17/23 12/12/23 History baclofen 5 mg tablet 5 mg PO AMPM PRN Spasms 07/24/23 12/12/23 History duloxetine 60 mg capsule,delayed 60 mg PO DAILY 09/21/23 12/12/23 History release (Cymbalta) metoclopramide HCl 5 mg tablet 5 mg PO TID PRN Nausea 09/21/23 12/12/23 History mirtazapine 30 mg tablet (Remeron) 30 mg PO HS 09/21/23 12/12/23 History lactulose 10 gram oral packet 10 g PO BID #15 ea 09/23/23 12/12/23 Rx (Kristalose) Patient History Medical History Atypical chest pain Radiation cystitis Encounter for pre-operative examination History of blood transfusion 11/2022 Hepatocellular carcinoma Spinal fracture of T12 vertebra History of recent hospitalization 06/2023 [facility] hepatic encephalopathy Insulin dependent type 2 diabetes mellitus Liver spots Under surveillance, stable per patient Anxiety and depression 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 Anemia of chronic disease under surveillance Prostate cancer Hx radiation History of panic attacks Gout No current issues GERD (gastroesophageal reflux disease) GAVE (gastric antral vascular ectasia) CKD (chronic kidney disease) stage 3, GFR 30-59 ml/min Hypertension Hx Esophageal varices EGD 05/22/23 ([facility]): Grade 1 varices in distal esophagus without high risk stigmata Upper GI bleed Hx Psoriasis Surgical History History of left cataract surgery History of right cataract surgery History of prostate biopsy malignant S/P TIPS (transjugular intrahepatic portosystemic shunt) History of esophagogastroduodenoscopy (EGD) Most recent 05/2023 [facility] History of colonoscopy with polypectomy History of tonsillectomy and adenoidectomy History of abdominal paracentesis Multiple, most recent 01/2023 Family History Father , "3/4 liver gone due to drinking" Colorectal cancer, Onset Age: 63 Mother Lung cancer Daughter Cancer cervical and thyroid cancers Ovarian cancer Other No family history of adverse response to anesthesia 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 Smoking Status: Never smoker Second Hand Exposure: No; Do You Dip or Chew Tobacco: No; Hx Alcohol Use: No Hx Substance Use: No Preferred Language: Monegasque Communication Ability: Effective Visual Impairment: No Limitations Hearing Ability: Normal All Around Presser Required: No Beliefs That Will Affect Care: None marital status: Current Living Situation: Spouse Current Living Situation Comment: 1 level single family home 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 How many Children do You have: 6 How many Children do You have Comment: one , eldest daughter in her sleep from seizure disorder Feels Safe at Home: Yes Safety Concerns: Feels Safe At This Time Childhood Exposure to Second-Hand Smoke: Yes Diet Comment: "I watch my sugar, average fasting is 140 mg/dl" caffeine: Yes (cola, sugar free, decaf) during the past year weight has: remained stable Dental Care, Regularly: No Physical Activity Frequency: Does not Exercise Seatbelt Use: always Sunscreen Use: Yes Assistive Devices: Walker Review of Systems Constitutional: no fever and no chills Eyes: + corrective lenses Ear, Nose, Mouth, Throat: no hearing loss Respiratory: no cough Cardiovascular: no chest pain Gastrointestinal: + blood in stools Genitourinary: + as per Subjective / HPI Musculoskeletal: no back pain Integumentary: no rash Neurologic: no localized weakness Physical Exam Constitutional: WD/WN, vitals as above Eyes: Wears glasses ENMT: Ears: no hearing impairment and no external ear abnormality Mouth: no oropharynx abnormality Neck: trachea midline Respiratory: normal respiratory effort; no respiratory distress and no labored breathing Cardiovascular: Rate/Rhythm: regular rate and regular rhythm Gastrointestinal (Abdomen): Soft and nontender Musculoskeletal: No calf tenderness Skin: no rashes Neurologic: moves all extremities Psychiatric: A+Ox3, euthymic affect Genitourinary: No CVA tenderness with percussion bilaterally Results & Data Vital Signs (Past 12 Hours) Vital Signs Temp Pulse Pulse Resp BP BP Pulse Ox 12/12/23 18:17 36.7 C 68 18 163/74 H 100 12/12/23 17:20 64 12/12/23 15:00 71 18 133/74 96 12/12/23 13:21 66 16 127/78 97 12/12/23 12:01 68 12/12/23 11:05 12/12/23 11:05 67 16 150/70 H 98 12/12/23 11:01 98 12/12/23 10:59 36.5 C 68 18 154/69 H 99 O2 Del Method 12/12/23 18:17 Room Air 12/12/23 17:20 12/12/23 15:00 Room Air 12/12/23 13:21 12/12/23 12:01 12/12/23 11:05 Room Air 12/12/23 11:05 Room Air 12/12/23 11:01 Room Air 12/12/23 10:59 Room Air PG Care Time/CCT Total # of Minutes Spent Total Time Spent with Patient: Total time spent is greater than 50% in coordination of care (as documented) at patient's floor/unit and/or counseling patient: Coding Level of Care Code 20210 INT INP/OBS CARE 3/75MIN Diagnoses Hematuria R31.9
[2023-12-12] MEDS: allopurinoL 100 MG TAB PO SCH (20:42)
[2023-12-12] MEDS: PANTOprazole 40 MG TAB PO SCH (20:43)
[2023-12-12] MEDS: MIRTAZAPINE TAB 15 MG TAB PO SCH (20:43)
[2023-12-12] MEDS: rifAXIMin 550 MG TABLET PO SCH (20:48)
[2023-12-12] MEDS: LACTULOSE 10 GM PO SCH (21:00)
[2023-12-12] MEDS ORDERED: LANTUS PER UNIT CHARGE SQ SCH (21:00)
[2023-12-12 23:14] LABS: Basophils # (auto) 0.01 K/uL (0.00-0.20); Basophils % (auto) 0.3 %; Eosinophils # (auto) 0.36 K/uL (0.00-0.50); Eosinophils % (auto) 11.4 %; Hematocrit (blood only) 24.4 % (42.0-52.0); Hemoglobin 7.7 g/dl (14.0-18.0); Lymphocytes % (auto) 18.9 %; Mean Corpuscular Hemoglobin 30.7 pg (25.0-34.0); Mean Corpuscular Hgb Conc 31.6 g/dL (32.0-36.0); Mean Corpuscular Volume 97.2 fL (80.0-100.0); Mean Platelet Volume 12.4 fL (9.4-12.4); Monocytes # (auto) 0.24 K/uL (0.11-0.59); Monocytes % (auto) 7.6 %; Neutrophils # (auto) 1.96 K/uL (1.40-6.50); Neutrophils % (auto) 61.8 %; Platelet Count 81 K/uL (130-400); RDW Coefficient of Variation 18.1 % (11.5-14.5); RDW Standard Deviation 64.5 fL (36.4-46.3); Red Blood Count 2.51 M/uL (4.70-6.10); White Blood Count 3.17 K/ul (4.8-10.8)
[2023-12-12 23:38] LABS: Tear Drop Cells 2+
[2023-12-13 06:56] LABS: Albumin Level 2.5 gm/dl (3.4-5.0); Bilirubin,Total 2.8 mg/dl (0.2-1.0); Calcium 7.9 mg/dl (8.6-10.3); Potassium 3.9 mmol/L (3.5-5.1)
[2023-12-13 07:07] LABS: Albumin Globulin Ratio 0.8 (0.9-2); BUN Creatinine Ratio 17.3 (10-20); Creatinine Clr Calc Pharmacy 61.8 ml/min; Est GFR (African American) 76.8 ml/min; Est GFR (Non-African American) 66.2 ml/min; Globulin 3.2 gm/dl (2.5-4.0); Total Protein 5.7 gm/dl (6.0-8.3)
--- NOTE | 2023-12-13 07:16 | Pharmacy Report ---
Pharmacy Glycemic Short Note 2 - Date of Service December 13, 2023 - Glycemic Short BSG Results (Last 24 hours): 12/12/23 12/12/23 12/12/23 11:02 17:28 20:36 Glucose 223 H POC Glucose 181 H 202 H 12/13/23 05:50 Glucose 107 H POC Glucose OUTPATIENT ANTIDIABETIC REGIMEN: * Lantus 26 units SC HS * HbA1c: 5.3% (11/27/23) ASSESSMENT: 12/13 * Patient received total of 18 units of insulin yesterday, of which 10 units were basal * Fasting BSG 107 mg/dL - patient NPO today, awaiting GI rec's. Will redose basal again at HS - may consider scale if he remains NPO for most of day 12/12 * 73 yo M admitted on 12/12/23 secondary to hematuria and BRBPR. Pharmacy has been consulted to assist with inpatient glycemic management. Patient is a Type 2 diabetic as an outpatient. Please refer to outpatient regimen and most recent HbA1c above. * BSG on [facility] upon presentation was 223 mg/dL. Patient will be ordered a diet for dinner tonight but will be made NPO after midnight. Given this and A1c, will be conservative will basal dose this evening. Planning on continuing once daily basal at bedtime as this mirrors outpatient regimen. * Novolog will be started based on weight/stress of 2 which patient has to lerated well during recent admissions. PLAN FOR INPATIENT GLYCEMIC CONTROL: * Basal insulin * Lantus 8-10 units SC HS * Bolus insulin * NovoLog per scale ACHS or Q6hrs while NPO * Goal Range: Low 120 mg/dL - High 150 mg/dL * Correction Factor: 25 mg/dL/unit * Nutritional / Prandial insulin per carb ratio of 1 unit per 8 grams CHO consumed
[2023-12-13 07:32] LABS: Basophils # (auto) 0.01 K/uL (0.00-0.20); Basophils % (auto) 0.3 %; Eosinophils # (auto) 0.36 K/uL (0.00-0.50); Eosinophils % (auto) 11.8 %; Hemoglobin 7.7 g/dl (14.0-18.0); Immature Granulocytes # (auto) 0.01 K/uL (0.01-0.20); Immature Granulocytes % (auto) 0.3 %; Lymphocytes # (auto) 0.57 K/uL (1.20-3.40); Lymphocytes % (auto) 18.6 %; Mean Corpuscular Hemoglobin 30.3 pg (25.0-34.0); Mean Corpuscular Hgb Conc 30.8 g/dL (32.0-36.0); Mean Corpuscular Volume 98.4 fL (80.0-100.0); Mean Platelet Volume 12.3 fL (9.4-12.4); Monocytes % (auto) 6.5 %; Neutrophils # (auto) 1.91 K/uL (1.40-6.50); Neutrophils % (auto) 62.5 %; Platelet Count 71 K/uL (130-400); RDW Standard Deviation 64.3 fL (36.4-46.3); Red Blood Count 2.54 M/uL (4.70-6.10); Tear Drop Cells 2+; White Blood Count 3.06 K/ul (4.8-10.8)
[2023-12-13] MEDS: INSULIN ASPART PER UNIT CHARGE SC SCH ×4 (08:55→20:58)
--- NOTE | 2023-12-13 12:17 | Gastrointestinal Consultation ---
Date of Consultation December 13, 2023 Assessment & Plan (1) Hematuria: (2) BRBPR (bright red blood per rectum): Pt is a 73 yo male w FOFANA cirrhosis (MELD 13), hx of esophageal varices, ascites s/p TIPS, HCC s/p IR embolization, GAVE and rectal angioectasia s/p APC treatment, prostate ca, CKD, DM II who presented w hematuria and hematochezia. Rectal exam today wo hemorrhoids, fissure, no blood in rectum noted. Blood ct at his baseline. - Monitor for further s/s of GI bleeding - Monitor blood ct and transfuse prn - No plans for endoscopic workup for hematochezia at this time - ? liver masses previous embolized HCC vs new lesion. Will obtain MRI liver and check AFP - No APAP >2g a day if needed - Avoid NSAIDs, ETOH Supervising Physician Co-Signing Physician Notes Attending attestation I have seen, examined this patient, and agree with the findings and above by our mid-level provider JEFF Cast, with the following additions: MR now with ? lesion Will need follow up HCC tumor board/hepatology to discuss area Can you please have image from [place] pushed to [employer] History of Present Illness Reason for Consultation: BRBPR, liver mass Requesting Physician: Dr. Franko Villanueva Attending Physician: Dr. Juaquin Arrington History of Present Illness Pt is a 73 yo male w FOFANA cirrhosis, hx of esophageal varices, ascites s/p TIPS, HCC s/p IR embolization, GAVE and rectal angioectasia s/p APC treatment, prostate ca, CKD, DM II who presented w hematuria and hematochezia. Has had hematuria since November awaiting cystoscopy procedure in outpt setting. He noticed the hematochezia 2 days ago. On evaluation, blood ct had been at his baseline w Hgb of 7.7, Plt 71, INR 1.2, CT abd/pelvis w 3.6cm L hepatic lobe lesion and 1.5cm R liver lesion. + colonic diverticuli, asymmetric bladder wall thickening vs intraluminal debris. EGD and colonoscopy 08/2023 - portal hypertensive gastropathy; diverticulosis, hemorrhoids, polyps. Allergies Allergy/AdvReac Type Severity Reaction Status Date / Time No Known Allergies Allergy Mild Verified 12/12/23 12:04 Home Medications Medication Instructions Recorded Confirmed Type allopurinol 100 mg tablet 200 mg PO BID 05/16/20 12/12/23 History finasteride 5 mg tablet 5 mg PO QAM 11/03/21 12/12/23 History furosemide 20 mg tablet (Lasix) 40 mg PO QAM 11/02/22 12/12/23 History insulin glargine 100 unit/mL 26 unit subcut QPM 11/05/22 12/12/23 History subcutaneous solution (Lantus U-100 Insulin) acetaminophen 325 mg tablet 650 mg PO Q8H PRN Pain 02/24/23 12/12/23 History (Tylenol) triamcinolone acetonide 0.1 % 1 applic topical BID PRN PSORIATIC 02/24/23 12/12/23 History topical cream LESIONS WHEN NEEDED pantoprazole 40 mg tablet,delayed 40 mg PO BID 90 days #180 tabs 02/28/23 12/12/23 Rx release Lactobacil.acidophilus-Bifido.animalis 1 cap PO QAM 05/17/23 12/12/23 History 5 billion cell sprinkle capsule (Probiotic) acetylcysteine 600 mg capsule 600 mg PO QAM 05/17/23 12/12/23 History ferrous sulfate 325 mg (65 mg 325 mg PO QAM 05/17/23 12/12/23 History iron) tablet (iron) abevhrqyspgo-wge-lgplj acid-vit 1 tab PO DAILY 05/17/23 12/12/23 History K-lycop 400 mcg-20 mcg-370 mcg tablet (Men's 50 Plus Multivitamin) rifaximin 550 mg tablet (Xifaxan) 550 mg PO BID 05/17/23 12/12/23 History baclofen 5 mg tablet 5 mg PO AMPM PRN Spasms 07/24/23 12/12/23 History duloxetine 60 mg capsule,delayed 60 mg PO DAILY 09/21/23 12/12/23 History release (Cymbalta) metoclopramide HCl 5 mg tablet 5 mg PO TID PRN Nausea 09/21/23 12/12/23 History mirtazapine 30 mg tablet (Remeron) 30 mg PO HS 09/21/23 12/12/23 History lactulose 10 gram oral packet 10 g PO BID #15 ea 09/23/23 12/12/23 Rx (Kristalose) Patient History Medical History Atypical chest pain Radiation cystitis Encounter for pre-operative examination History of blood transfusion 11/2022 Hepatocellular carcinoma Spinal fracture of T12 vertebra History of recent hospitalization 06/2023 [facility] hepatic encephalopathy Insulin dependent type 2 diabetes mellitus Liver spots Under surveillance, stable per patient Anxiety and depression 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 Anemia of chronic disease under surveillance Prostate cancer Hx radiation History of panic attacks Gout No current issues GERD (gastroesophageal reflux disease) GAVE (gastric antral vascular ectasia) CKD (chronic kidney disease) stage 3, GFR 30-59 ml/min Hypertension Hx Esophageal varices EGD 05/22/23 ([facility]): Grade 1 varices in distal esophagus without high risk stigmata Upper GI bleed Hx Psoriasis Surgical History History of left cataract surgery History of right cataract surgery History of prostate biopsy malignant S/P TIPS (transjugular intrahepatic portosystemic shunt) History of esophagogastroduodenoscopy (EGD) Most recent 05/2023 [facility] History of colonoscopy with polypectomy History of tonsillectomy and adenoidectomy History of abdominal paracentesis Multiple, most recent 01/2023 Family History Father , "3/4 liver gone due to drinking" Colorectal cancer, Onset Age: 63 Mother Lung cancer Daughter Cancer cervical and thyroid cancers Ovarian cancer Other No family history of adverse response to anesthesia 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 Smoking Status: Never smoker Second Hand Exposure: No; Do You Dip or Chew Tobacco: No; Hx Alcohol Use: No Hx Substance Use: No Preferred Language: Khmer Communication Ability: Effective Visual Impairment: No Limitations Hearing Ability: Normal Epic [employer]ow Specialist Required: No Beliefs That Will Affect Care: None marital status: Current Living Situation: Spouse Current Living Situation Comment: 1 level single family home 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 How many Children do You have: 6 How many Children do You have Comment: one , eldest daughter in her sleep from seizure disorder Feels Safe at Home: Yes Safety Concerns: Feels Safe At This Time Childhood Exposure to Second-Hand Smoke: Yes Diet Comment: "I watch my sugar, average fasting is 140 mg/dl" caffeine: Yes (cola, sugar free, decaf) during the past year weight has: remained stable Dental Care, Regularly: No Physical Activity Frequency: Does not Exercise Seatbelt Use: always Sunscreen Use: Yes Assistive Devices: Oxygen - at Night and Wheelchair Review of Systems Review of Systems: All systems reviewed & are unremarkable except as noted in HPI & below Physical Exam Constitutional: WD/WN, vitals as above well groomed, cooperative and comfortable Eyes: PERRL, conjunctivae normal, anicteric sclerae ENMT: external ear and nose normal, oropharynx normal Respiratory: normal respiratory effort, lungs clear to auscultation Cardiovascular: RRR, no murmur, no edema Gastrointestinal (Abdomen): normal bowel sounds, soft, nontender, no hepatosplenomegaly Rectal Exam: no hemorrhoids (no hemorrhoids, fissure, no blood noted in rectum ) Skin: no rashes, warm and dry (+ psoriasis plaques on back) no jaundice Neurologic: Motor/Sensory: no asterixis Psychiatric: A+Ox3, euthymic affect Lymphatic: no lymphedema Results & Data Vital Signs (Past 12 Hours) Vital Signs Temp Pulse Pulse Resp BP Pulse Ox O2 Del Method 12/13/23 12:03 36.6 C 65 16 122/66 95 Room Air 12/13/23 08:10 36.7 C 67 16 161/64 H 99 Room Air 12/13/23 08:00 Room Air 12/13/23 07:00 66 12/13/23 03:37 36.9 C 64 16 153/67 H 95 Nasal Cannula
--- NOTE | 2023-12-13 12:34 | Urology Progress Note ---
Date of Service December 13, 2023 Assessment & Plan (1) Hematuria: Plan 73yo/M with a complicated past medical history including FOFANA cirrhosis and prostate cancer s/p radiation therapy who presented w hematuria and hematochezia. Urology consulted for hematuria. - CT reviewed -asymmetric bladder wall thickening versus intraluminal debris seen posteriorly on the right. - He is afebrile, vitals stable. - Labs reviewed WBC 3.06, hemoglobin 7.7, creatinine 1.10. - Urinalysis noted be turbid with > 30RBC, negative bacteria, 5-10 WBC. - No acute urologic intervention necessary at this time. - At the present time the patient notes that he is emptying his bladder without difficulty and is not passing any blood clots. - If patient does develop signs or symptoms of urinary retention, bladder scans can be employed to see if he is retaining urine and if so a Kan catheter can be placed and can be flushed and irrigated manually as needed. - Continue supportive care and management per primary team. - Continue to trend labs. - Recommend that he follows up with his primary urologist. Patient reports that he is scheduled to have a cystoscopy with Dr. Frank Peraza in early January of this year. - Urology will follow peripherally. Please contact us with any further qu estions or concerns. Admission and Anticipated Discharge Date Admission Date: December 12, 2023 Subjective Patient examined at bedside this a.m. Awake, resting in bed on arrival. No acute distress. Reports he is voiding without issue. Feels he is emptying his bladder well. Still with some hematuria, denies clot. Review of Systems Constitutional: as per Subjective / HPI Genitourinary: + as per Subjective / HPI Physical Exam Constitutional: no acute distress Respiratory: no respiratory distress and no labored breathing Neurologic: moves all extremities and awake Psychiatric: A+Ox3, euthymic affect Results & Data Vital Signs (Past 12 Hours) Vital Signs Temp Pulse Pulse Resp BP Pulse Ox O2 Del Method 12/13/23 12:03 36.6 C 65 16 122/66 95 Room Air 12/13/23 08:10 36.7 C 67 16 161/64 H 99 Room Air 12/13/23 08:00 Room Air 12/13/23 07:00 66 12/13/23 03:37 36.9 C 64 16 153/67 H 95 Nasal Cannula PG Care Time/CCT Total # of Minutes Spent Total Time Spent with Patient: Total time spent is greater than 50% in coordination of care (as documented) at patient's floor/unit and/or counseling patient: Coding Level of Care Code 59882 SUB INP/OBS CARE 2/35MIN Diagnoses Hematuria R31.9
[2023-12-13] MEDS ORDERED: GADOXETATE DISODIUM IV ONE (13:44)
--- NOTE | 2023-12-13 14:24 | Magnetic Resonance Report ---
MRI OF THE ABDOMEN COMBO; MRCP CLINICAL HISTORY: Cirrhosis. Liver mass. COMPARISON STUDY: Abdominal CT dictated 12/12/2023. TECHNIQUE: MRI of the abdomen is performed transverse T1 and T2-weighted sequences in the axial and c oronal planes. Contrast enhanced sequences were acquired following the IV administration of 10 cc of Eovist. Diffusion weighted imaging and subtraction images were utilized. High-resolution MRCP images were obtained. 3-D reformats are created and assessed. The Examination is degraded by a significant volume of abdominal ascites. There is also motion artifact. FINDINGS: Lower chest: There are small right and trace left pleural effusions. The heart is mildly enlarged not ing trace pericardial effusion. Liver: The liver is cirrhotic in morphology and heterogeneous in signal intensity. There is nodularit y of the hepatic surface contour. No intrahepatic biliary ductal dilatation is seen. The hepatic vein s and portal veins are patent. A TIPS catheter is again seen in the right lobe. There is thrombosis o f peripheral portal venous branches in segment VII. MRI confirms the presence of a 3.5 x 2.4 cm mass lesion in the left hepatic lobe seen on delayed view best image #28. The enhancement kinetics are dif ficult to assess due to the degree of artifact. This shows at least some enhancement with delayed was hout. The lesions are not well visualized on the T1 and T2-weighted sequences. No additional hepatic lesion is clearly seen. Gallbladder/MRCP: There are layering gallstones within the gallbladder lumen. No intra or extrahepati c biliary ductal dilatation. The common bile duct measures up to 2 mm in diameter. There is no eviden ce of choledocholithiasis. The pancreatic duct is normal in caliber. Spleen: The spleen is enlarged measuring 16 cm in length. Pancreas: A 2.1 cm simple cystic lesion is again seen in the pancreatic head. Adrenal glands: Unremarkable. Kidneys: The kidneys demonstrate cortical atrophy and are without hydronephrosis. The kidneys enhance and excrete symmetrically. Scattered subcentimeter cysts are noted. Abdominal colon are normal in course and caliber. Bowel: Imaged portions of the bowel show no evidence of obstruction. Peritoneum: There is a moderate to large volume of abdominopelvic ascites. Lymphadenopathy: None. Skeletal structures: Visualized skeletal structures times are normal marrow signal intensity. IMPRESSION: 1. Significantly degraded examination as above. 2. The liver is cirrhotic in morphology and heterogeneous in signal intensity. 3. MRI confirms the presence of a 3.5 cm pathologically indeterminate mass in the left hepatic lobe. Neoplasm is the diagnosis of exclusion. The enhancement kinetics are difficult to evaluate due to the degree of artifact. In a cirrhotic liver a hepatocellular carcinoma is the top differential consider ation. Correlate with serum AFP levels. 4. No additional hepatic lesion is identified. 5. Splenomegaly and a moderate to large volume of abdominopelvic ascites indicate portal hypertension . 6. Cholelithiasis. 7. Pleural effusions. 8. Additional findings as above. ACT 112: Negative or not required by law. Electronically signed by: Scott Yeepz M.D. 12/13/2023 2:23 PM
[2023-12-13] MEDS: ACETYLCYSTEINE 600 MG CAP PO SCH (15:08)
[2023-12-13] MEDS: ADVANCED PROBIOTIC 1250 MG CAPSULE PO SCH (15:08)
[2023-12-13] MEDS: PANTOprazole 40 MG TAB PO SCH ×2 (15:09→20:59)
[2023-12-13] MEDS: CEROVITE ADV FORMULA TAB PO SCH (15:09)
[2023-12-13] MEDS: FINASTERIDE 5 MG TAB PO SCH (15:09)
[2023-12-13] MEDS: rifAXIMin 550 MG TABLET PO SCH ×2 (15:09→21:01)
[2023-12-13] MEDS: DULoxetine HCL 60 MG CAP PO SCH (15:09)
[2023-12-13] MEDS: allopurinoL 100 MG TAB PO SCH ×2 (15:09→21:00)
[2023-12-13] MEDS: LACTULOSE 10 GM PO SCH ×2 (15:11→21:01)
[2023-12-13] MEDS: FUROSEMIDE 40 MG TAB PO SCH (15:12)
[2023-12-13 15:37] LABS: Basophils # (auto) 0.02 K/uL (0.00-0.20); Basophils % (auto) 0.7 %; Eosinophils # (auto) 0.34 K/uL (0.00-0.50); Eosinophils % (auto) 11.9 %; Hematocrit (blood only) 26.5 % (42.0-52.0); Hemoglobin 8.2 g/dl (14.0-18.0); Immature Granulocytes # (auto) 0.01 K/uL (0.01-0.20); Immature Granulocytes % (auto) 0.4 %; Lymphocytes # (auto) 0.56 K/uL (1.20-3.40); Lymphocytes % (auto) 19.6 %; Mean Corpuscular Hemoglobin 30.5 pg (25.0-34.0); Mean Corpuscular Hgb Conc 30.9 g/dL (32.0-36.0); Mean Corpuscular Volume 98.5 fL (80.0-100.0); Mean Platelet Volume 12.9 fL (9.4-12.4); Monocytes # (auto) 0.18 K/uL (0.11-0.59); Monocytes % (auto) 6.3 %; Neutrophils # (auto) 1.74 K/uL (1.40-6.50); Neutrophils % (auto) 61.1 %; Platelet Count 89 K/uL (130-400); RDW Coefficient of Variation 18.1 % (11.5-14.5); RDW Standard Deviation 64.5 fL (36.4-46.3); Red Blood Count 2.69 M/uL (4.70-6.10); White Blood Count 2.85 K/ul (4.8-10.8)
--- NOTE | 2023-12-13 16:15 | Hospitalist Progress Note ---
Date of Service December 13, 2023 Assessment & Plan (1) BRBPR (bright red blood per rectum): Plan: Presents with 2 days of bright red blood per rectum. Painless Hemoglobin similar to baseline from his last discharge. Last colonoscopy was in August 2023; found to have polyp in transverse colon, moderate diverticulosis with no evidence of bleeding. He was recommended to have repeat colonoscopy in 1 year because the bowel preparation was suboptimal. Last endoscopy was also in August 2023; normal esophagus, portal hypertensive gastropathy was seen. CT abdomen pelvis on admission; no acute findings in the abdomen/pelvis. Cirrhotic liver. 3.6 cm left lobe hepatic lesion as well as 1.5 cm lesion right lobe. Colonic diverticulosis without CT evidence of acute diverticulitis was seen. Also found to have asymmetrical bladder wall thickening versus intraluminal debris. Monitor CBC every 8 hours. Transfuse packed RBC if hemoglobin is less than 7. Obtain PT/INR Consent for blood transfusion taken Full liquid diet, n.p.o. from midnight Appreciate GI input for bright red blood per rectum and CT abdomen/Pelvis findings. 12/13 CT abd/pelvis: (+) diverticulosis Hg stable at 7.7 GI on board MRI abdomen ordered (2) Hematuria: Plan: History of prostate cancer status postradiation. Patient reports that his last radiation was 2 years back Follows up with Dr. Peraza from [facility]. Patient reports that he has follow- up next month for possible cystoscopy Similar episode last admission as well. CT abdomen and pelvis shows asymmetrical bladder wall thickening versus intralu joceline debris Appreciate urology input. 12/13 Hg stable at 7.7 Urology service consulted, recommend to follow up with Urologist as outpatient, has upcoming outpatient Cystoscopy Pancytopenia Likely secondary to liver cirrhosis. 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 Cisse Code Status: Full Code VTE Prophylaxis: Teds and SCDs for now Admission and Anticipated Discharge Date Admission Date: December 12, 2023 Subjective ff up for hematochezia, etc seen resting in bed, sleeping but easily awakened oriented x 3 no recurrence of hematochezia today still has pink tinged urine no abdominal pain, nausea, fever/chills no chest pain, dyspnea, palpitations, dizziness Review of Systems Review of Systems: all noted and negative except for above Physical Exam Physical Exam: General- oriented x 3, not in distress, speaks in sentences with no effort or accessory muscle use Eyes- anicteric Neck- no JVD Lungs- clear breath sounds bilaterally, no rales/wheezes Heart- normal rate, regular rhythm; no murmurs Abdomen- normal bowel sounds, nondistended, soft, nontender Extremities- no pretibial edema, no calf tenderness Neuro- alert, oriented x 3; no gross focal neurologic deficits Skin- warm & dry Results & Data Results & Data Vital Signs (Past 12 Hours) Vital Signs Temp Pulse Pulse Pulse Resp BP BP 12/13/23 15:32 36.6 C 61 18 146/68 H 12/13/23 12:03 36.6 C 65 16 122/66 12/13/23 08:10 36.7 C 67 16 161/64 H 12/13/23 08:00 12/13/23 07:00 66 Pulse Ox O2 Del Method 12/13/23 15:32 95 Room Air 12/13/23 12:03 95 Room Air 12/13/23 08:10 99 Room Air 12/13/23 08:00 Room Air 12/13/23 07:00 all noted and reviewed including below
[2023-12-13] MEDS ORDERED: LANTUS PER UNIT CHARGE SQ SCH (21:00)
[2023-12-13] MEDS: MIRTAZAPINE TAB 15 MG TAB PO SCH (21:00)
[2023-12-14] MEDS: ACETYLCYSTEINE 600 MG CAP PO SCH (09:01)
[2023-12-14] MEDS: rifAXIMin 550 MG TABLET PO SCH ×2 (09:01→20:24)
[2023-12-14] MEDS: PANTOprazole 40 MG TAB PO SCH ×2 (09:01→20:24)
[2023-12-14] MEDS: allopurinoL 100 MG TAB PO SCH ×2 (09:01→20:24)
[2023-12-14] MEDS: ADVANCED PROBIOTIC 1250 MG CAPSULE PO SCH (09:02)
[2023-12-14] MEDS: CEROVITE ADV FORMULA TAB PO SCH (09:02)
[2023-12-14] MEDS: FUROSEMIDE 40 MG TAB PO SCH (09:02)
[2023-12-14] MEDS: DULoxetine HCL 60 MG CAP PO SCH (09:02)
[2023-12-14] MEDS: FINASTERIDE 5 MG TAB PO SCH (09:02)
[2023-12-14] MEDS: LACTULOSE 10 GM PO SCH ×2 (09:06→20:25)
[2023-12-14] MEDS: INSULIN ASPART PER UNIT CHARGE SC SCH ×4 (09:13→21:11)
[2023-12-14 10:22] LABS: Basophils # (auto) 0.01 K/uL (0.00-0.20); Basophils % (auto) 0.3 %; Eosinophils # (auto) 0.23 K/uL (0.00-0.50); Eosinophils % (auto) 7.8 %; Hematocrit (blood only) 23.7 % (42.0-52.0); Hemoglobin 7.6 g/dl (14.0-18.0); Immature Granulocytes # (auto) 0.01 K/uL (0.01-0.20); Immature Granulocytes % (auto) 0.3 %; Lymphocytes # (auto) 0.49 K/uL (1.20-3.40); Lymphocytes % (auto) 16.6 %; Mean Corpuscular Hgb Conc 32.1 g/dL (32.0-36.0); Mean Corpuscular Volume 96.7 fL (80.0-100.0); Mean Platelet Volume 11.8 fL (9.4-12.4); Monocytes # (auto) 0.21 K/uL (0.11-0.59); Monocytes % (auto) 7.1 %; Neutrophils # (auto) 2.01 K/uL (1.40-6.50); Neutrophils % (auto) 67.9 %; Platelet Count 81 K/uL (130-400); RDW Coefficient of Variation 17.7 % (11.5-14.5); Red Blood Count 2.45 M/uL (4.70-6.10); White Blood Count 2.96 K/ul (4.8-10.8)
[2023-12-14 10:47] LABS: Ovalocytes 1+; Polychromasia 1+; Tear Drop Cells 2+
--- NOTE | 2023-12-14 19:08 | Hospitalist Progress Note ---
Date of Service December 14, 2023 delayed entry date of service noted above Assessment & Plan (1) BRBPR (bright red blood per rectum): Plan: Presents with 2 days of bright red blood per rectum. Painless Hemoglobin similar to baseline from his last discharge. Last colonoscopy was in August 2023; found to have polyp in transverse colon, moderate diverticulosis with no evidence of bleeding. He was recommended to have repeat colonoscopy in 1 year because the bowel preparation was suboptimal. Last endoscopy was also in August 2023; normal esophagus, portal hypertensive gastropathy was seen. CT abdomen pelvis on admission; no acute findings in the abdomen/pelvis. Cirrhotic liver. 3.6 cm left lobe hepatic lesion as well as 1.5 cm lesion right lobe. Colonic diverticulosis without CT evidence of acute diverticulitis was seen. Also found to have asymmetrical bladder wall thickening versus intraluminal debris. Monitor CBC every 8 hours. Transfuse packed RBC if hemoglobin is less than 7. Obtain PT/INR Consent for blood transfusion taken Full liquid diet, n.p.o. from midnight Appreciate GI input for bright red blood per rectum and CT abdomen/Pelvis findings. 12/13 CT abd/pelvis: (+) diverticulosis Hg stable at 7.7 GI on board MRI abdomen ordered 12/14 Hg remains stable no melena no dizziness monitor closely (2) Hematuria: Plan: History of prostate cancer status postradiation. Patient reports that his last radiation was 2 years back Follows up with Dr. Peraza from [facility]. Patient reports that he has follow- up next month for possible cystoscopy Similar episode last admission as well. CT abdomen and pelvis shows asymmetrical bladder wall thickening versus intraluminal debris Appreciate urology input. 12/13 Hg stable at 7.7 Urology service consulted, recommend to follow up with Urologist as outpatient, has upcoming outpatient Cystoscopy 12/14 hematuria continues to resolved Pancytopenia Likely secondary to liver cirrhosis. 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 no melena no abdominal pain, nausea/vomiting no other symptoms Review of Systems Review of Systems: all noted and negative except for above Physical Exam Physical Exam: General- oriented x 3, not in distress, speaks in sentences with no effort or accessory muscle use Eyes- anicteric Neck- no JVD Lungs- clear BS bilaterally, no rales/wheezes Heart- normal rate, regular rhythm; no murmurs Abdomen- normal bowel sounds, nondistended, soft, no tenderness Extremities- no pretibial edema, no calf tenderness Neuro- alert, oriented x 3; no gross focal neurologic deficits Skin- warm & dry Results & Data Results & Data Vital Signs (Past 12 Hours) Vital Signs Temp Pulse Pulse Resp BP Pulse Ox O2 Del Method 12/14/23 15:38 36.6 C 69 20 132/66 97 Room Air 12/14/23 15:27 70 12/14/23 12:13 36.6 C 68 16 126/59 L 96 Room Air 12/14/23 08:00 36.7 C 69 16 160/64 H 93 Room Air 12/14/23 07:46 70 all noted and reviewed including below
[2023-12-14] MEDS: MIRTAZAPINE TAB 15 MG TAB PO SCH (20:24)
[2023-12-14] MEDS ORDERED: LANTUS PER UNIT CHARGE SQ SCH (21:00)
[2023-12-15 08:26] VITALS: RESP 18
[2023-12-15] MEDS: PANTOprazole 40 MG TAB PO SCH (09:19)
[2023-12-15] MEDS: ADVANCED PROBIOTIC 1250 MG CAPSULE PO SCH (09:19)
[2023-12-15] MEDS: FUROSEMIDE 40 MG TAB PO SCH (09:19)
[2023-12-15] MEDS: DULoxetine HCL 60 MG CAP PO SCH (09:19)
[2023-12-15] MEDS: CEROVITE ADV FORMULA TAB PO SCH (09:19)
[2023-12-15] MEDS: ACETYLCYSTEINE 600 MG CAP PO SCH (09:20)
[2023-12-15] MEDS: FINASTERIDE 5 MG TAB PO SCH (09:20)
[2023-12-15] MEDS: rifAXIMin 550 MG TABLET PO SCH (09:20)
[2023-12-15] MEDS: allopurinoL 100 MG TAB PO SCH (09:20)
[2023-12-15] MEDS: LACTULOSE 10 GM PO SCH (09:21)
[2023-12-15] MEDS: INSULIN ASPART PER UNIT CHARGE SC SCH ×2 (09:22→13:40)
[2023-12-15 10:45] VITALS: TEMP 97.9; O2SAT 97
[2023-12-15 10:53] LABS: BUN Creatinine Ratio 16.3 (10-20); Calcium 7.6 mg/dl (8.6-10.3); Creatinine Clr Calc Pharmacy 55.2 ml/min; Est GFR (African American) 67.1 ml/min; Est GFR (Non-African American) 57.9 ml/min; Potassium 4.1 mmol/L (3.5-5.1)
[2023-12-15 11:08] LABS: Basophils # (auto) 0.01 K/uL (0.00-0.20); Basophils % (auto) 0.3 %; Eosinophils # (auto) 0.22 K/uL (0.00-0.50); Eosinophils % (auto) 7.4 %; Hematocrit (blood only) 22.4 % (42.0-52.0); Hemoglobin 7.2 g/dl (14.0-18.0); Immature Granulocytes # (auto) 0.02 K/uL (0.01-0.20); Immature Granulocytes % (auto) 0.7 %; Lymphocytes # (auto) 0.54 K/uL (1.20-3.40); Lymphocytes % (auto) 18.2 %; Mean Corpuscular Hemoglobin 30.5 pg (25.0-34.0); Mean Corpuscular Hgb Conc 32.1 g/dL (32.0-36.0); Mean Corpuscular Volume 94.9 fL (80.0-100.0); Mean Platelet Volume 10.4 fL (9.4-12.4); Monocytes # (auto) 0.18 K/uL (0.11-0.59); Monocytes % (auto) 6.1 %; Neutrophils % (auto) 67.3 %; Platelet Count 69 K/uL (130-400); RDW Coefficient of Variation 17.6 % (11.5-14.5); RDW Standard Deviation 59.7 fL (36.4-46.3); Red Blood Count 2.36 M/uL (4.70-6.10); White Blood Count 2.97 K/ul (4.8-10.8)
[2023-12-15 11:40] LABS: Ovalocytes 1+; Polychromasia 1+; Tear Drop Cells 2+
--- NOTE | 2023-12-15 12:26 | Pharmacy Report ---
Pharmacy Glycemic Short Note 2 - Date of Service December 15, 2023 - Glycemic Short BSG Results (Last 24 hours): 12/14/23 12/14/23 12/14/23 12:30 17:03 20:40 Glucose POC Glucose 153 H 132 H 134 H 12/15/23 12/15/23 12/15/23 08:23 10:10 12:09 Glucose 213 H POC Glucose 115 H 148 H OUTPATIENT ANTIDIABETIC REGIMEN: * Lantus 26 units SC HS * HbA1c: 5.3% (11/27/23) ASSESSMENT: 12/15: * Luis received around 24 units of insulin per day for the last 48 hours. BSGs ranged from 108 - 276 mg/dL. * Fasting BSG this AM was 115 mg/dL which is at goal. No change to basal. * Postprandials have mostly been controlled. No changes to regimen today. 12/13: * Patient received total of 18 units of insulin yesterday, of which 10 units were basal * Fasting BSG 107 mg/dL - patient NPO today, awaiting GI rec's. Will redose basal again at HS - may consider scale if he remains NPO for most of day 12/12: * 73 yo M admitted on 12/12/23 secondary to hematuria and BRBPR. Pharmacy has been consulted to assist with inpatient glycemic management. Patient is a Type 2 diabetic as an outpatient. Please refer to outpatient regimen and most recent HbA1c above. * BSG on [facility] upon presentation was 223 mg/dL. Patient will be ordered a diet for dinner tonight but will be made NPO after midnight. Given this and A1c, will be conservative will basal dose this evening. Planning on continuing once daily basal at bedtime as this mirrors outpatient regimen. * Novolog will be started based on weight/stress of 2 which patient has tolerated well during recent admissions. PLAN FOR INPATIENT GLYCEMIC CONTROL: * Basal insulin * Lantus 10 units SC HS * Bolus insulin * NovoLog per scale ACHS or Q6hrs while NPO * Goal Range: Low 120 mg/dL - High 150 mg/dL * Correction Factor: 25 mg/dL/unit * Nutritional / Prandial insulin per carb ratio of 1 unit per 8 grams CHO consumed
[2023-12-15 14:21] VITALS: BP 103/65
[2023-12-15 14:54] VITALS: PULSE 74
--- NOTE | 2023-12-15 17:38 | Discharge Summary ---
Discharge Summary Date of Service December 15, 2023 Notes For Next Care Provider Medication Changes From Visit None Admission HPI Per Admitting Provider History obtained from interview with the patient and chart review. Reported Medical history includes: H/O Hepatocellular Carcinoma S/P IR embolization/portal vein thrombus, H/O FOFANA Cirrhosis S/P TIPS, prostate CA s/p radiation 2020, IDDM2, CKD, psoriasis, and depression. Last admission was in November, with similar issue Patient reports that he was doing well after the discharge from the hospital with no recurrence of hematuria and hematochezia. However, he started to notice red urine since last 2 days. He denies any passage of blood or suprapubic pain. He denies fever, chills, increased urgency or frequency. He also reports bright red blood per rectum which is painless. He reports having 4-5 bowel movements every day all with blood. He complains of mild abdominal discomfort. Patient's last colonoscopy was in August 2023; found to have polyp in transverse colon, moderate diverticulosis with no evidence of bleeding. He was recommended to have repeat colonoscopy in 1 year because the bowel preparation was suboptimal. Last endoscopy was also in August 2023; normal esophagus, portal hypertensive gastropathy was seen. Patient reports that he is to see his urologist in beginning of January for possible cystoscopy. He reports that his last radiation for prostate cancer was 2 years back. On presentation to the ED, patient was normotensive, afebrile and saturating well on room air. Hemoglobin on admission was 7.5; similar to his baseline at discharge. Platelet count of 72,000. Urinalysis shows red urine, RBC greater than 30. CT abdomen pelvis was done; no acute findings in the abdomen/pelvis. Cirrhotic liver. 3.6 cm left lobe hepatic lesion as well as 1.5 cm lesion right lobe. Colonic diverticulosis without CT evidence of acute diverticulitis was seen. Also found to have asymmetrical bladder wall thickening versus intraluminal debris. Admission Exam Per Admitting Provider Constitutional: Alert oriented x 3; not in any distress Respiratory: Bilateral vesicular breath sound Cardiovascular: RRR, no murmur, no edema Vessels: no JVD or carotid bruit Chest: normal inspection of chest Abdomen: Slightly distended, soft. Nontender Musculoskeletal: 1+ pitting edema seen Skin: Multiple psoriatic lesions seen all over the body. Neurologic: PERRL, EOMI, accommodation nl, no face palsy, no dysarthria CN's II- XI intact bilaterally and moves all extremities Psychiatric: A+Ox3, euthymic affect Principal Dx & Hospital Course #1 = Principal Diagnosis (1) BRBPR (bright red blood per rectum): Presents with 2 days of bright red blood per rectum. Painless Hemoglobin similar to baseline from his last discharge. Last colonoscopy was in August 2023; found to have polyp in transverse colon, moderate diverticulosis with no evidence of bleeding. He was recommended to have repeat colonoscopy in 1 year because the bowel preparation was suboptimal. Last endoscopy was also in August 2023; normal esophagus, portal hypertensive gastropathy was seen. CT abdomen pelvis on admission; no acute findings in the abdomen/pelvis. Cirrhotic liver. 3.6 cm left lobe hepatic lesion as well as 1.5 cm lesion right lobe. Colonic diverticulosis without CT evidence of acute diverticulitis was seen. Also found to have asymmetrical bladder wall thickening versus intraluminal debris. Hg remained stable at 7.7 Hematochezia resolved, likely secondary to diverticular bleeding GI on board MRI abdomen ordered: 1. Significantly degraded examination as above. 2. The liver is cirrhotic in morphology and heterogeneous in signal intensity. 3. MRI confirms the presence of a 3.5 cm pathologically indeterminate mass in th e left hepatic lobe. Neoplasm is the diagnosis of exclusion. The enhancement kinetics are difficult to evaluate due to the degree of artifact. In a cirrhotic liver a hepatocellular carcinoma is the top differential consideration. Correlate with serum AFP levels. 4. No additional hepatic lesion is identified. 5. Splenomegaly and a moderate to large volume of abdominopelvic ascites indicate portal hypertension. 6. Cholelithiasis. 7. Pleural effusions. 8. Additional findings as above. Will need outpatient GI follow up for further work up for liver lesion (2) Hematuria: History of prostate cancer status postradiation. Patient reports that his last radiation was 2 years back Follows up with Dr. Peraza from [facility]. Patient reports that he has follow- up next month for possible cystoscopy Similar episode last admission as well. CT abdomen and pelvis shows asymmetrical bladder wall thickening versus intraluminal debris 12/15 Resolving Hg stable at 7.7 Urology service consulted, recommend to follow up with Urologist as outpatient, has upcoming outpatient Cystoscopy Pancytopenia Likely secondary to liver cirrhosis. Stable 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: Chronic Takes rifaximin; continue Continue Lasix Insulin dependent Diabetes: Chronic Takes Lantus; Glycemic pharmacy consult Psoriasis: Takes triamcinolone; continue CKD: Creatinine at baseline Depression: Chronic Takes Cymbalta;continue Disposition: PCP: Dr. Cisse Code Status: Full Code VTE Prophylaxis: Teds and SCDs for now Discharge Exam General- oriented x 3, not in distress, speaks in sentences with no effort or accessory muscle use Eyes- anicteric Neck- no JVD Lungs- clear breath sounds bilaterally, no rales/wheezes Heart- normal rate, regular rhythm; no murmurs Abdomen- normal bowel sounds, nondistended, soft, nontender Extremities- no pretibial edema, no calf tenderness Neuro- alert, oriented x 3; no gross focal neurologic deficits Skin- warm & dry Updated Medication List Medication Instructions Recorded Confirmed Type allopurinol 100 mg tablet 200 mg PO BID 05/16/20 12/12/23 History finasteride 5 mg tablet 5 mg PO QAM 11/03/21 12/12/23 History furosemide 20 mg tablet (Lasix) 40 mg PO QAM 11/02/22 12/12/23 History insulin glargine 100 unit/mL 26 unit subcut QPM 11/05/22 12/12/23 History subcutaneous solution (Lantus U-100 Insulin) acetaminophen 325 mg tablet 650 mg PO Q8H PRN Pain 02/24/23 12/12/23 History (Tylenol) triamcinolone acetonide 0.1 % 1 applic topical BID PRN PSORIATIC 02/24/23 12/12/23 History topical cream LESIONS WHEN NEEDED pantoprazole 40 mg tablet,delayed 40 mg PO BID 90 days #180 tabs 02/28/23 12/12/23 Rx release Lactobacil.acidophilus-Bifido.animalis 1 cap PO QAM 05/17/23 12/12/23 History 5 billion cell sprinkle capsule (Probiotic) acetylcysteine 600 mg capsule 600 mg PO QAM 05/17/23 12/12/23 History ferrous sulfate 325 mg (65 mg 325 mg PO QAM 05/17/23 12/12/23 History iron) tablet (iron) bxqzwnlzcbxw-uwi-jkodv acid-vit 1 tab PO DAILY 05/17/23 12/12/23 History K-lycop 400 mcg-20 mcg-370 mcg tablet (Men's 50 Plus Multivitamin) rifaximin 550 mg tablet (Xifaxan) 550 mg PO BID 05/17/23 12/12/23 History baclofen 5 mg tablet 5 mg PO AMPM PRN Spasms 07/24/23 12/12/23 History duloxetine 60 mg capsule,delayed 60 mg PO DAILY 09/21/23 12/12/23 History release (Cymbalta) metoclopramide HCl 5 mg tablet 5 mg PO TID PRN Nausea 09/21/23 12/12/23 History mirtazapine 30 mg tablet (Remeron) 30 mg PO HS 09/21/23 12/12/23 History lactulose 10 gram oral packet 10 g PO BID #15 ea 09/23/23 12/12/23 Rx (Kristalose) Hospital Stay Data Consultations 12/12/23 16:02 ED Decision to Admit Stat 12/12/23 16:20 Consult Gastroenterology Routine Consult Urology Routine Diagnostic Imagining Performed Laboratory Results WBC 2.97 K/ul (4.8-10.8) L 12/15/23 10:10 RBC 2.36 M/uL (4.70-6.10) L 12/15/23 10:10 Hgb 7.2 g/dl (14.0-18.0) L 12/15/23 10:10 Hct 22.4 % (42.0-52.0) L 12/15/23 10:10 MCV 94.9 fL (80.0-100.0) 12/15/23 10:10 MCH 30.5 pg (25.0-34.0) 12/15/23 10:10 MCHC 32.1 g/dL (32.0-36.0) 12/15/23 10:10 RDW Std Deviation 59.7 fL (36.4-46.3) H 12/15/23 10:10 RDW Coeff of Violetta 17.6 % (11.5-14.5) H 12/15/23 10:10 Plt Count 69 K/uL (130-400) L 12/15/23 10:10 MPV 10.4 fL (9.4-12.4) 12/15/23 10:10 Immature Gran % (Auto) 0.7 % 12/15/23 10:10 Neut % (Auto) 67.3 % 12/15/23 10:10 Lymph % (Auto) 18.2 % 12/15/23 10:10 Coal % (Auto) 6.1 % 12/15/23 10:10 Eos % (Auto) 7.4 % 12/15/23 10:10 Baso % (Auto) 0.3 % 12/15/23 10:10 Neut # (Auto) 2.00 K/uL (1.40-6.50) 12/15/23 10:10 Lymph # (Auto) 0.54 K/uL (1.20-3.40) L 12/15/23 10:10 Coal # (Auto) 0.18 K/uL (0.11-0.59) 12/15/23 10:10 Eos # (Auto) 0.22 K/uL (0.00-0.50) 12/15/23 10:10 Baso # (Auto) 0.01 K/uL (0.00-0.20) 12/15/23 10:10 Immature Gran # (Auto) 0.02 K/uL (0.01-0.20) 12/15/23 10:10 Polychromasia 1+ 12/15/23 10:10 Tear Drop Cells 2+ 12/15/23 10:10 Ovalocytes 1+ 12/15/23 10:10 PT 12.5 Seconds (9.0-12.0) H 12/12/23 11:02 INR 1.2 (0.9-1.1) H 12/12/23 11:02 Sodium 136 mmol/L (136-145) 12/15/23 10:10 Potassium 4.1 mmol/L (3.5-5.1) 12/15/23 10:10 Chloride 108 mmol/L (98-107) H 12/15/23 10:10 Carbon Dioxide 23 mmol/L (21-32) 12/15/23 10:10 Anion Gap 5 (3-11) 12/15/23 10:10 BUN 20 mg/dl (6-23) 12/15/23 10:10 Creatinine 1.23 mg/dl (0.6-1.4) 12/15/23 10:10 Est Cr Clr Drug Dosing 55.2 ml/min 12/15/23 10:10 Est GFR ( Amer) 67.1 ml/min 12/15/23 10:10 Est GFR (Non-Af Amer) 57.9 ml/min 12/15/23 10:10 BUN/Creatinine Ratio 16.3 (10-20) 12/15/23 10:10 Glucose 213 mg/dl (70-99(Fasting)) H 12/15/23 10:10 POC Glucose 148 mg/dl (70-99) H 12/15/23 12:09 Calcium 7.6 mg/dl (8.6-10.3) L 12/15/23 10:10 Total Bilirubin 2.8 mg/dl (0.2-1.0) H D 12/13/23 05:50 AST 27 U/L (13-39) 12/13/23 05:50 ALT 14 U/L (7-52) 12/13/23 05:50 Alkaline Phosphatase 140 U/L (34-104) H 12/13/23 05:50 Total Protein 5.7 gm/dl (6.0-8.3) L 12/13/23 05:50 Albumin 2.5 gm/dl (3.4-5.0) L 12/13/23 05:50 Globulin 3.2 gm/dl (2.5-4.0) 12/13/23 05:50 Albumin/Globulin Ratio 0.8 (0.9-2) L 12/13/23 05:50 Lipase 36 U/L (11-82) 12/12/23 11:02 Tumor Marker AFP 1.8 ng/mL (<6.1) 12/13/23 11:01 Vitamin B12 435 pg/ml (180-914) 12/13/23 05:50 Urine Color Red 12/12/23 11:55 Urine Appearance Turbid (Clear) A 12/12/23 11:55 Urine pH (4.5-7.5) 12/12/23 11:55 Ur Specific Reading 1.022 (1.000-1.030) 12/12/23 11:55 Urine Protein (Negative) 12/12/23 11:55 Urine Glucose (UA) (Negative) 12/12/23 11:55 Urine Ketones (Negative) 12/12/23 11:55 Urine Blood (Negative) 12/12/23 11:55 Urine Nitrite (Negative) 12/12/23 11:55 Urine Bilirubin (Negative) 12/12/23 11:55 Urine Urobilinogen (Negative) 12/12/23 11:55 Ur Leukocyte Esterase (Negative) 12/12/23 11:55 Urine RBC >30 /hpf (0-4) H 12/12/23 11:55 Urine WBC 5-10 /hpf (0-5) H 12/12/23 11:55 Ur Epithelial Cells 0-5 /lpf (0-5) 12/12/23 11:55 Urine Bacteria Negative (Negative) 12/12/23 11:55 Blood Type O Positive 12/12/23 11:44 Antibody Screen NEGATIVE 12/12/23 11:44 Impressions Abdomen/Pelvis CT 12/12/23 13:50 CT SCAN OF THE ABDOMEN AND PELVIS WITH IV CONTRAST CLINICAL HISTORY: Generalized abdominal pain. Hematuria. COMPARISON STUDY: Prior abdominal CT scans, most recently dated 11/26/2023. TECHNIQUE: Following the IV administration of 82 cc of Optiray 320, CT scan of the abdomen and pelvis is performed from the lung bases to the proximal femora. Images are reviewed in the axial, sagittal, and coronal planes. IV contrast was administered without complication. A dose lowering technique was utilized adhering to the principles of ALARA. CT DOSE: 1207.97 mGy.cm FINDINGS: Lung bases: The heart is mildly enlarged noting a small pericardial effusion. The coronary arteries are densely calcified. There is bibasilar scarring/atelectasis. No airspace consolidation or pleural effusion is identified. There is a small hiatal hernia. Liver: The contrast-enhanced liver is cirrhotic morphology and heterogeneous in attenuation. There is no intrahepatic biliary ductal dilatation. The hepatic veins abdomen portable veins are patent. A TIPS catheter is in place and appears patent. There are thrombosed peripheral portal venous branches distal to the TIPS. There is recanalization of the periumbilical vein. There is a subtle 3.6 cm mass lesion in the left hepatic lobe liver diaphragms seen on axial image #58. An indeterminant 1.5 cm hypodensity is suggested in the right lobe on image #97. Gallbladder: There are calcified gallstones without CT evidence of acute cholecystitis. Spleen: The spleen is enlarged measuring 16.7 cm in length. There is a splenorenal shunt. Pancreas: A 2.1 cm simple cystic lesion is again seen in the pancreatic head/uncinate. The pancreas is otherwise normal as imaged. Adrenal glands: Unremarkable. Kidneys: The contrast enhanced kidneys demonstrate cortical atrophy and there are without hydronephrosis. The kidneys enhance symmetrically. A 1.6 cm hyperdense cyst is again seen in the anterior interpolar left kidney. Abdominal vasculature: The abdominal aorta is normal in course and caliber noting [id number] atherosclerotic calcification. Bowel: There is moderate to advanced colonic diverticulosis without CT evidence of acute diverticulitis. No bowel obstruction is seen. The appendix is well- visualized and normal. Peritoneum: There is a moderate to large volume of abdominopelvic ascites. No intraperitoneal free air is seen. Lymphadenopathy: None. Pelvic viscera: The prostate gland is enlarged and heterogeneous. The bladder wall is thickened/trabeculated indicating chronic outlet obstruction. Asymmetric bladder wall thickening versus debris is seen posteriorly on the right. Skeletal structures: The skeletal structures are osteopenic. Again seen is a subacute superior endplate compression fracture of L2 with mild loss of height and minimal retropulsion of fragments. There is subacute 3 column fracture of the T12 vertebral body. This is unchanged from recent prior examinations. A chronic superior endplate compression deformity of L1 is unchanged. No lytic or blastic lesions are seen. IMPRESSION: 1. No acute infectious or inflammatory findings are identified in the abdomen or pelvis. 2. The liver is cirrhotic in morphology and heterogeneous in attenuation. 3. There is a subtle 3.6 cm left lobe hepatic mass lesion. Given the cirrhotic morphology, a hepatocellular carcinoma is the diagnosis of exclusion. Correlation with serum AFP levels is recommended, as is a nonemergent contrast- enhanced liver protocol MRI. 4. There may be a second 1.5 cm low-attenuation lesion in the right lobe. This can also be assessed by MRI. 5. A TIPS catheter is patent. There are thrombosed peripheral portal venous branches distal to the TIPS catheter. 6. Splenomegaly, a splenorenal shunt, and a moderate to large volume of abdominopelvic ascites indicate portal hypertension. 7. Colonic diverticulosis without CT evidence of acute diverticulitis. 8. There is asymmetric bladder wall thickening versus intraluminal debris seen posteriorly on the right. Correlate with clinical findings and urinalysis. Follow-up with urology is recommended, as an underlying urothelial neoplasm is not excluded. 9. Cardiomegaly. 10. Cholelithiasis. 11. Again seen are subacute fractures of T12 and L2. 12. Additional findings as above. ACT 112: Positive. There are findings on this exam that require communication between the performing entity and the patient following Patient Test Result Information Act ([place] Act 112) guidelines. Electronically signed by: Scott Yepez M.D. 12/12/2023 2:54 PM Abdomen MRI 12/13/23 10:40 MRI OF THE ABDOMEN COMBO; MRCP CLINICAL HISTORY: Cirrhosis. Liver mass. COMPARISON STUDY: Abdominal CT dictated 12/12/2023. TECHNIQUE: MRI of the abdomen is performed transverse T1 and T2-weighted sequences in the axial and coronal planes. Contrast enhanced sequences were acquired following the IV administration of 10 cc of Eovist. Diffusion weighted imaging and subtraction images were utilized. High-resolution MRCP images were obtained. 3-D reformats are created and assessed. The Examination is degraded by a significant volume of abdominal ascites. There is also motion artifact. FINDINGS: Lower chest: There are small right and trace left pleural effusions. The heart is mildly enlarged noting trace pericardial effusion. Liver: The liver is cirrhotic in morphology and heterogeneous in signal intensity. There is nodularity of the hepatic surface contour. No intrahepatic b iliary ductal dilatation is seen. The hepatic veins and portal veins are patent. A TIPS catheter is again seen in the right lobe. There is thrombosis of peripheral portal venous branches in segment VII. MRI confirms the presence of a 3.5 x 2.4 cm mass lesion in the left hepatic lobe seen on delayed view best image #28. The enhancement kinetics are difficult to assess due to the degree of artifact. This shows at least some enhancement with delayed washout. The lesions are not well visualized on the T1 and T2-weighted sequences. No additional hepatic lesion is clearly seen. Gallbladder/MRCP: There are layering gallstones within the gallbladder lumen. No intra or extrahepatic biliary ductal dilatation. The common bile duct measures up to 2 mm in diameter. There is no evidence of choledocholithiasis. The pancreatic duct is normal in caliber. Spleen: The spleen is enlarged measuring 16 cm in length. Pancreas: A 2.1 cm simple cystic lesion is again seen in the pancreatic head. Adrenal glands: Unremarkable. Kidneys: The kidneys demonstrate cortical atrophy and are without hydronephrosis. The kidneys enhance and excrete symmetrically. Scattered subcentimeter cysts are noted. Abdominal colon are normal in course and caliber. Bowel: Imaged portions of the bowel show no evidence of obstruction. Peritoneum: There is a moderate to large volume of abdominopelvic ascites. Lymphadenopathy: None. Skeletal structures: Visualized skeletal structures times are normal marrow signal intensity. IMPRESSION: 1. Significantly degraded examination as above. 2. The liver is cirrhotic in morphology and heterogeneous in signal intensity. 3. MRI confirms the presence of a 3.5 cm pathologically indeterminate mass in the left hepatic lobe. Neoplasm is the diagnosis of exclusion. The enhancement kinetics are difficult to evaluate due to the degree of artifact. In a cirrhotic liver a hepatocellular carcinoma is the top differential consideration. Correlate with serum AFP levels. 4. No additional hepatic lesion is identified. 5. Splenomegaly and a moderate to large volume of abdominopelvic ascites indicate portal hypertension. 6. Cholelithiasis. 7. Pleural effusions. 8. Additional findings as above. ACT 112: Negative or not required by law. Electronically signed by: Scott Yepez M.D. 12/13/2023 2:23 PM Pending Results Patient Have Any Pending Studies at Discharge: No Discharge Instructions Given to Patient (Per Discharging Provider) DO NOT TAKE MEDICATIONS UNDER THE CLASS OF NSAIDS- IBUPROFEN, NAPROXEN, ETC. PLEASE CALL YOUR PRIMARY CARE PHYSICIAN OR RETURN TO THE ER IF WITH WORSENING OF SYMPTOMS, INCLUDING BLOOD IN THE STOOLS, BLACK STOOLS, BLOOD IN THE URINE, ABDOMINAL PAIN, NAUSEA, WEAKNESS, DIZZINESS, SHORTNESS OF BREATH, ETC FOLLOW UP WITH PRIMARY CARE PHYSICIAN IN 1 WEEK. Total Time Total Time Spent Total Time Spent (In Minutes): >30 minutes
== END 2023-12-15 15:49 | disposition home health service (06) | DRG 378 ==
LOC: ED 10:54 → SUATTDRO 16:20 → EDINP 16:20 → 2W 17:00

== ENCOUNTER 2024-01-25 04:59 | Inpatient (IN) ==
--- NOTE | 2024-01-25 05:28 | Emergency Department Note ---
Impression & Plan Substernal chest pain, Anemia ED Provider Note Name: MERRITT TAPIA Age: 73 Sex: Male Arrives Via: Ambulance Informant: Patient ED Provider: Zane Watson MD Chief Complaint: Chest pain Impression: As per impressions above Medical Decision Making: Pleasant 73-year-old gentleman with chronic anemia gradually worsening he was actually supposed to have a blood transfusion on Saturday. He arrives with pressure-like substernal chest pain. Resolved with nitro. Nitropaste applied and no further chest pain. He had already been given aspirin by EMS. He is not having any abdominal pain or discomfort. He is not encephalopathic. Denies any recent black or bloody stools. He does admit that he has chronic hematuria. His hemoglobin today is 6.6 this is consistent with his chronic anemia but is much lower than typical for him. Suspect he is having a bit of demand angina but at this point there is no clear evidence of cardiac ischemia the EKG or labs. Workup otherwise relatively benign. He is feeling better. He is a relatively complex patient in the setting of chest pain anemia I think hospitalization is indicated to proceed with transfusion. I did consent him to transfusion and his awareness of risks benefits. Hospitalist consulted for further management. Triage/Nursing Notes reviewed by Me Differential:Cardiac ischemia, aortic dissection, pulmonary embolism, pneumothorax, pneumonia, pericarditis, myocarditis, esophageal rupture, GERD, cholecystitis, pancreatitis, musculoskeletal, as well as other pathologies. Vital Signs: reviewed and remarkable for no significant abnormalities Interventions: Sublingual nitroglycerin, Nitropaste, 1 unit PRBC Labs:ED labs Reviewed by me and remarkable for acute anemia Imagin view chest x-ray no lobar infiltrate or pneumothorax. Mild congestive findings noted. EKG:As per my interpretation. Indication chest pain. Normal sinus rhythm at 64 bpm with a QTc of 493. There is no ectopy or ischemia. When compared to an EKG of December 12, 2023 there is no significant change. Cardiac/Tele Monitoring: Cardiac Monitoring: An Order was placed for continuous cardiac monitoring. The monitor shows a rate of 60 with a normal sinus rhythm. Consults:Dr. Andersen of the [facility] Hospitalist service Plan: Disposition:Hospitalization. Condition: Fair History of Present Illness: 73-year-old gentleman arrives for evaluation of chest pain. Patient notes this evening he awoke around 3 AM with substernal chest pressure. Initially thought it would go away but then called 911 and they gave him nitro with resolution of pain. Patient notes his pain has returned and is now having substernal chest pressure again. No radiation of pain. No palpitations, lightheadedness, nausea, vomiting, or other concerning signs or symptoms. He is not having any difficulty breathing. Has not had any chest pain the last few days. Does note he had an episode of chest pain a few weeks ago when he was significantly anemic and required a blood transfusion. Has no history of CAD. Does note chronic anemia. He has chronic blood in his urine as well. Has not noticed any black or bloody stools though. Past Medical History:See Below Home Medications:See Below Allergies:No known drug allergies Vitals:Blood Pressure: 149/64, Pulse 63, RR 18, T 36.7C, O2 99% on RA Physical Exam: GENERAL: Patient is tired/pale appearing and in no acute distress. RESPIRATORY: No dyspnea. Clear to auscultation and equal bilaterally. CARDIOVASCULAR: Regular rate and rhythm.No murmur appreciated. GASTROINTESTINAL: Abdomen soft, non-tender, no peritonitis. EXTREMITIES: Normal motion all extremities, no cyanosis, mild lower leg edema. NEUROLOGIC: Alert and oriented. No focal neurologic deficits appreciated SKIN: No rash, no jaundice, no diaphoresis. PSYCH: Appropriate GCS: 15 ED Course: Times/Reassessments: Resolution of chest pain with sublingual nitro. Patient is agreeable to hospitalization for transfusion and further cardiac monitoring. 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 Anemia of chronic disease under surveillance Prostate cancer Hx radiation History of panic attacks Gout No current issues GERD (gastroesophageal reflux disease) GAVE (gastric antral vascular ectasia) CKD (chronic kidney disease) stage 3, GFR 30-59 ml/min Hypertension Hx Esophageal varices EGD 05/22/23 ([facility]): Grade 1 varices in distal esophagus without high risk stigmata Upper GI bleed Hx Psoriasis Surgical History History of left cataract surgery History of right cataract surgery History of prostate biopsy malignant S/P TIPS (transjugular intrahepatic portosystemic shunt) History of esophagogastroduodenoscopy (EGD) Most recent 05/2023 [facility], [place] History of colonoscopy with polypectomy History of tonsillectomy and adenoidectomy History of abdominal paracentesis Multiple, most recent 01/2023 Family History Father , "3/4 liver gone due to drinking" Colorectal cancer, Onset Age: 63 Mother Lung cancer Daughter Cancer cervical and thyroid cancers Ovarian cancer Other No family history of adverse response to anesthesia 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 Smoking Status: Never smoker Second Hand Exposure: No; Do You Dip or Chew Tobacco: No; Tobacco Cessation Education Requested by Patient: No Hx Alcohol Use: No Hx Substance Use: No Preferred Language: [place] Irish Communication Ability: Effective Visual Impairment: No Limitations Hearing Ability: Normal Silk Finisher Required: No Beliefs That Will Affect Care: None marital status: Current Living Situation: Spouse Current Living Situation Comment: 1 level single family home 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 How many Children do You have: 6 How many Children do You have Comment: one , eldest daughter in her sleep from seizure disorder Feels Safe at Home: Yes Childhood Exposure to Second-Hand Smoke: Yes Diet Comment: "I watch my sugar, average fasting is 140 mg/dl" caffeine: Yes (cola, sugar free, decaf) during the past year weight has: remained stable Dental Care, Regularly: No Physical Activity Frequency: Does not Exercise Seatbelt Use: always Sunscreen Use: Yes Assistive Devices: Oxygen - at Night and Walker Allergies Allergies Allergy/AdvReac Type Severity Reaction Status Date / Time No Known Allergies Allergy Mild Verified 12/12/23 12:04 Home Meds Home Medications Medication Instructions Recorded Confirmed allopurinol 100 mg tablet 200 mg PO BID 05/16/20 01/25/24 finasteride 5 mg tablet 5 mg PO QAM 11/03/21 01/25/24 furosemide 20 mg tablet (Lasix) 40 mg PO QAM 11/02/22 01/25/24 insulin glargine 100 unit/mL 25 unit subcut QPM 11/05/22 01/25/24 subcutaneous solution (Lantus U-100 Insulin) acetaminophen 325 mg tablet 650 mg PO Q8H PRN Pain 02/24/23 01/25/24 (Tylenol) triamcinolone acetonide 0.1 % 1 applic topical BID PRN PSORIATIC 02/24/23 01/25/24 topical cream LESIONS WHEN NEEDED Lactobacil.acidophilus-Bifido.animalis 1 cap PO QAM 05/17/23 01/25/24 5 billion cell sprinkle capsule (Probiotic) acetylcysteine 600 mg capsule 600 mg PO QAM 05/17/23 01/25/24 ferrous sulfate 325 mg (65 mg 325 mg PO QAM 05/17/23 01/25/24 iron) tablet (iron) gmsepovyzuqm-dep-xzzac acid-vit 1 tab PO DAILY 05/17/23 01/25/24 K-lycop 400 mcg-20 mcg-370 mcg tablet (Men's 50 Plus Multivitamin) rifaximin 550 mg tablet (Xifaxan) 550 mg PO BID 05/17/23 01/25/24 baclofen 5 mg tablet 5 mg PO AMPM PRN Spasms 07/24/23 01/25/24 duloxetine 60 mg capsule,delayed 60 mg PO DAILY 09/21/23 01/25/24 release (Cymbalta) metoclopramide HCl 5 mg tablet 5 mg PO TID PRN Nausea 09/21/23 01/25/24 mirtazapine 30 mg tablet (Remeron) 30 mg PO HS 09/21/23 01/25/24 Previous Rx's Medication Instructions Recorded pantoprazole 40 mg tablet,delayed 40 mg PO BID 90 days #180 tabs 02/28/23 release lactulose 10 gram oral packet 10 g PO BID #15 ea 09/23/23 (Kristalose) Results & Data (ED) Vital Signs Vital Signs - 24 hr 01/25/24 05:03 01/25/24 05:07 01/25/24 05:16 Temperature Temperature Source Pulse Rate 63 64 Pulse Rate [Right Finger] Pulse Rate from SpO2 Sensor 64 Respiratory Rate 18 15 Respiratory Effort / Characteristics Non-Labored Spontaneous Respiratory Depth Normal Respiratory Pattern Regular Blood Pressure 149/64 H 149/64 H Blood Pressure [Right Arm] Blood Pressure Mean 92 92 Blood Pressure Mean [Right Arm] Blood Pressure Position Lying Pulse Oximetry 97 98 99 Oxygen Delivery Method Room Air Room Air Room Air Sepsis Recent Fever Within 48 Hours No Sepsis New/Unexplained Change in Mental Status N/A Sepsis Action Taken by Nursing No Action Required 01/25/24 05:18 01/25/24 05:30 01/25/24 06:09 Temperature 36.7 C Temperature Source Oral Pulse Rate 62 64 Pulse Rate [Right Finger] Pulse Rate from SpO2 Sensor 61 Respiratory Rate Respiratory Effort / Characteristics Respiratory Depth Respiratory Pattern Blood Pressure 153/68 H Blood Pressure [Right Arm] Blood Pressure Mean 96 Blood Pressure Mean [Right Arm] Blood Pressure Position Pulse Oximetry 96 Oxygen Delivery Method Room Air Sepsis Recent Fever Within 48 Hours Sepsis New/Unexplained Change in Mental Status Sepsis Action Taken by Nursing 01/25/24 07:00 Temperature Temperature Source Pulse Rate Pulse Rate [Right Finger] 65 Pulse Rate from SpO2 Sensor Respiratory Rate 18 Respiratory Effort / Characteristics Respiratory Depth Respiratory Pattern Blood Pressure Blood Pressure [Right Arm] 137/72 Blood Pressure Mean Blood Pressure Mean [Right Arm] 93 Blood Pressure Position Pulse Oximetry 97 Oxygen Delivery Method Room Air Sepsis Recent Fever Within 48 Hours Sepsis New/Unexplained Change in Mental Status Sepsis Action Taken by Nursing Laboratory Data 01/26/24 06:04 01/26/24 06:04 Lab Results 01/25/24 01/25/24 01/25/24 Range/Units 05:05 05:19 05:43 WBC 3.30 L (4.8-10.8) K/ul RBC 2.22 L (4.70-6.10) M/uL Hgb 6.6 L* (14.0-18.0) g/dl Hct 21.2 L (42.0-52.0) % MCV 95.5 (80.0-100.0) fL MCH 29.7 (25.0-34.0) pg MCHC 31.1 L (32.0-36.0) g/dL RDW Std Deviation 64.6 H (36.4-46.3) fL RDW Coeff of [place] 18.8 H (11.5-14.5) % Plt Count 84 L (130-400) K/uL MPV 12.1 (9.4-12.4) fL Immature Gran % (Auto) 0.6 % Neut % (Auto) 63.9 % Lymph % (Auto) 21.5 % [place] % (Auto) 7.0 % Eos % (Auto) 6.7 % Baso % (Auto) 0.3 % Neut # (Auto) 2.11 (1.40-6.50) K/uL Lymph # (Auto) 0.71 L (1.20-3.40) K/uL [place] # (Auto) 0.23 (0.11-0.59) K/uL Eos # (Auto) 0.22 (0.00-0.50) K/uL Baso # (Auto) 0.01 (0.00-0.20) K/uL Immature Gran # (Auto) 0.02 (0.01-0.20) K/uL Polychromasia 1+ Hypochromasia Present Tear Drop Cells 2+ Ovalocytes 1+ Sodium 142 (136-145) mmol/L Potassium 4.3 (3.5-5.1) mmol/L Chloride 116 H (98-107) mmol/L Carbon Dioxide 20 L (21-32) mmol/L Anion Gap 6 (3-11) BUN 25 H (6-23) mg/dl Creatinine 1.35 (0.6-1.4) mg/dl Est Cr Clr Drug Dosing 50.3 ml/min Est GFR ( Amer) 59.9 ml/min Est GFR (Non-Af Amer) 51.7 ml/min BUN/Creatinine Ratio 18.5 (10-20) Glucose 167 H (70-99(Fasting)) mg/dl Calcium 8.1 L (8.6-10.3) mg/dl Magnesium 1.6 L (1.7-2.4) mg/dl Troponin I High Sens 14.8 (0-20) pg/ml B-Natriuretic Peptide 255 H (0-100) pg/ml SARS-CoV-2 (PCR) NEGATIVE (Negative) Influenza Type A (PCR) Negative (Neg) Influenza Type B (PCR) Negative (Neg) RSV (RT-PCR) Negative (Neg) Blood Type O Positive Antibody Screen NEGATIVE Crossmatch See Detail Administered Medications Acetylcysteine (Acetylcysteine 600 Mg Cap) 600 mg PO QAM JODI Stop: 02/24/24 09:01 Last Admin: 01/26/24 10:29 Dose: 600 mg Documented By: Admin: 01/25/24 10:35 Dose: 600 mg Documented By: SHAZIA Allopurinol (Allopurinol 100 Mg Tab) 200 mg PO BID [facility] Stop: 02/24/24 09:01 Last Admin: 01/26/24 10:29 Dose: 200 mg Documented By: Admin: 01/25/24 20:26 Dose: 200 mg Documented By: Admin: 01/25/24 10:35 Dose: 200 mg Documented By: SHAZIA Amlodipine Besylate (Amlodipine Besylate 5 Mg Tab) 2.5 mg PO [facility] Stop: 02/25/24 06:14 Last Admin: 01/26/24 06:37 Dose: 2.5 mg Documented By: MAEGAN Duloxetine HCl (Duloxetine Hcl 30 Mg Cap) 30 mg PO DAILY [facility] Stop: 02/24/24 09:01 Last Admin: 01/26/24 10:29 Dose: 30 mg Documented By: Admin: 01/25/24 10:35 Dose: 30 mg Documented By: SHAZIA Ferrous Sulfate (Ferrous Sulfate 325 Mg Tab) 325 mg PO [facility] Stop: 02/24/24 09:01 Last Admin: 01/26/24 10:29 Dose: 325 mg Documented By: Admin: 01/25/24 10:35 Dose: 325 mg Documented By: SHAZIA Finasteride (Finasteride 5 Mg Tab) 5 mg PO [facility] Stop: 02/24/24 09:01 Last Admin: 01/26/24 10:29 Dose: 5 mg Documented By: Admin: 01/25/24 10:35 Dose: 5 mg Documented By: SHAZIA Promethazine HCl 6.25 mg/ (Sodium Chloride) 50.25 mls @ 201 mls/hr IV Q6H PRN PRN Reason: Nausea And Vomiting Stop: 02/24/24 07:23 Last Infusion: 01/25/24 14:22 Dose: Infused Documented By: Admin: 01/25/24 12:32 Dose: 201 mls/hr Documented By: SHAZIA Insulin Aspart (Insulin Aspart Per Unit Charge) 0 units SC ACHS [facility] Stop: 02/24/24 09:01 Last Admin: 01/26/24 13:10 Dose: 4 units Documented By: SHAZIA Co-signed By: AD Admin: 01/26/24 10:25 Dose: Not Given Documented By: Admin: 01/25/24 20:31 Dose: 2 units Documented By: BRIAN Co-signed By: JUHI Admin: 01/25/24 17:58 Dose: 1 units Documented By: SHAZIA Co-signed By: FREDA Admin: 01/25/24 13:15 Dose: 1 units Documented By: SHAZIA Co-signed By: FREDA Admin: 01/25/24 09:47 Dose: 3 units Documented By: SHAZIA Co-signed By: BRANDON Insulin Glargine (Lantus Per Unit Charge) 25 units SQ QPM JODI Stop: 02/24/24 20:59 Last Admin: 01/25/24 20:31 Dose: 25 units Documented By: BRIAN Co-signed By: JUHI Lactobacillus Acidophilus (Advanced Probiotic 1250 Mg Capsule) 2 cap PO QAM JODI Stop: 02/24/24 09:01 Last Admin: 01/26/24 10:29 Dose: 2 cap Documented By: Admin: 01/25/24 10:35 Dose: 2 cap Documented By: SHAZIA Lactulose (Lactulose Syrup 10 Gm/15 Ml Btl 960 Ml) 10 gm PO BID JODI Stop: 02/24/24 09:01 Last Admin: 01/26/24 12:10 Dose: 10 gm Documented By: Admin: 01/25/24 20:25 Dose: 10 gm Documented By: Admin: 01/25/24 10:34 Dose: 10 gm Documented By: SHAZIA Metoclopramide HCl (Metoclopramide Hcl 5 Mg Tablet) 5 mg PO TID PRN PRN Reason: Nausea Stop: 02/24/24 12:37 Last Admin: 01/25/24 20:25 Dose: 5 mg Documented By: BRIAN Mirtazapine (Mirtazapine Tab 15 Mg Tab) 30 mg PO HS JODI Stop: 02/24/24 20:59 Last Admin: 01/25/24 20:26 Dose: 30 mg Documented By: BRIAN Multivitamins/Minerals (Cerovite Adv Formula Tab) 1 tab PO DAILY JODI Stop: 02/24/24 09:01 Last Admin: 01/26/24 10:29 Dose: 1 tab Documented By: Admin: 02/24/24 10:34 Dose: 1 tab Documented By: SHAZIA Pantoprazole Sodium (Pantoprazole 40 Mg Tab) 40 mg PO BID JODI Stop: 02/24/24 09:01 Last Admin: 01/26/24 10:29 Dose: 40 mg Documented By: Admin: 01/25/24 20:26 Dose: 40 mg Documented By: Admin: 01/25/24 10:35 Dose: 40 mg Documented By: SHAZIA Rifaximin (Rifaximin 550 Mg Tablet) 550 mg PO BID JODI Stop: 02/24/24 09:01 Last Admin: 01/26/24 10:29 Dose: 550 mg Documented By: Admin: 01/25/24 20:26 Dose: 550 mg Documented By: Admin: 01/25/24 10:35 Dose: 550 mg Documented By: SHAZIA Discontinued Medications Furosemide (Furosemide 40 Mg/4 Ml Vial) 40 mg IV ONE ONE Stop: 01/25/24 07:19 Last Admin: 01/25/24 09:36 Dose: 40 mg Documented By: SHAZIA Furosemide (Furosemide Inj 20 Mg/2 Ml Vial) 20 mg IV ONE ONE Stop: 01/25/24 21:39 Last Admin: 01/25/24 22:48 Dose: 20 mg Documented By: BRIAN Furosemide (Furosemide Inj 20 Mg/2 Ml Vial) 20 mg IV ONE ONE Stop: 01/26/24 00:46 Last Admin: 01/26/24 01:29 Dose: 20 mg Documented By: MAEGAN Magnesium Sulfate/Dextrose (Magnesium Sulfate / D5w) 1 gm in 100 mls @ 50 mls/hr IV ONE ONE Stop: 01/25/24 08:21 Last Infusion: 01/25/24 20:51 Dose: Infused Documented By: Infusion: 01/25/24 07:24 Dose: 0 mls/hr Documented By: Admin: 01/25/24 06:38 Dose: 50 mls/hr Documented By: Magnesium Sulfate/Dextrose (Magnesium Sulfate / D5w) 1 gm in 100 mls @ 50 mls/hr IV Q2H JODI Stop: 01/26/24 12:44 Last Admin: 01/26/24 12:10 Dose: 50 mls/hr Documented By: Infusion: 01/26/24 12:10 Dose: Infused Documented By: Admin: 01/26/24 10:25 Dose: 50 mls/hr Documented By: SHAZIA Metoclopramide HCl (Metoclopramide Hcl Inj 5 Mg/Ml 2 Ml Vial) 5 mg IV ONE ONE Stop: 01/25/24 13:20 Last Admin: 01/25/24 13:39 Dose: 5 mg Documented By: SHAZIA Nitroglycerin (Nitroglycerin Sl 0.4 Mg/Tab Tab) 0.4 mg SL NOW STA Stop: 01/25/24 05:26 Last Admin: 01/25/24 05:39 Dose: 0.4 mg Documented By: Nitroglycerin (Nitroglycerin 2% Ointment 30gm Tube) 1 inch EXT NOW ONE Stop: 01/25/24 05:26 Last Admin: 01/25/24 05:39 Dose: 1 inch Documented By: Discharge Plan Visit Data Chief Complaint: Chest Pain ED Provider: Zane Watson Discharge Problem: Substernal chest pain, Anemia Patient Disposition: Admitted As Inpatient Discharge Instructions Interventions: ED Discharge Assessment Last Done: 01/25/24 08:11 Discharge Problem: Anemia Qualifiers: Anemia type: iron deficiency Iron deficiency anemia type: chronic blood loss Q ualified Code(s): D50.0 - Iron deficiency anemia secondary to blood loss (chronic)
[2024-01-25] MEDS: NITROGLYCERIN SL 0.4 MG/TAB TAB SL STA (05:39)
[2024-01-25] MEDS: NITROGLYCERIN 2% OINTMENT 30GM TUBE EXT ONE (05:39)
[2024-01-25 05:51] LABS: BUN Creatinine Ratio 18.5 (10-20); Calcium 8.1 mg/dl (8.6-10.3); Creatinine Clr Calc Pharmacy 50.3 ml/min; Est GFR (African American) 59.9 ml/min; Est GFR (Non-African American) 51.7 ml/min; Magnesium 1.6 mg/dl (1.7-2.4); Potassium 4.3 mmol/L (3.5-5.1)
[2024-01-25 05:58] LABS: Troponin I High Sensitivity 14.8 pg/ml (0-20)
[2024-01-25] MEDS ORDERED: SODIUM CHLORIDE 0.9% 250 ML IV PRN ×3 (06:12→21:37)
[2024-01-25 06:23] LABS: Hematocrit (blood only) 21.2 % (42.0-52.0); Hemoglobin 6.6 g/dl (14.0-18.0); Mean Corpuscular Hemoglobin 29.7 pg (25.0-34.0); Mean Corpuscular Hgb Conc 31.1 g/dL (32.0-36.0); Mean Corpuscular Volume 95.5 fL (80.0-100.0); Mean Platelet Volume 12.1 fL (9.4-12.4); Platelet Count 84 K/uL (130-400); RDW Coefficient of Variation 18.8 % (11.5-14.5); RDW Standard Deviation 64.6 fL (36.4-46.3); Red Blood Count 2.22 M/uL (4.70-6.10)
[2024-01-25 06:37] LABS: Influenza A virus by PCR Negative (Neg); Influenza B virus by PCR Negative (Neg); RSV by PCR Negative (Neg); SARS CoV2 RNA(COVID-19) Ceph NEGATIVE (Negative)
[2024-01-25] MEDS: MAGNESIUM SULFATE / D5W 1 GM/100 ML BAG IV ONE (06:38)
[2024-01-25 06:48] LABS: Basophils # (auto) 0.01 K/uL (0.00-0.20); Basophils % (auto) 0.3 %; Eosinophils # (auto) 0.22 K/uL (0.00-0.50); Eosinophils % (auto) 6.7 %; Hypochromasia Present; Immature Granulocytes # (auto) 0.02 K/uL (0.01-0.20); Immature Granulocytes % (auto) 0.6 %; Lymphocytes # (auto) 0.71 K/uL (1.20-3.40); Lymphocytes % (auto) 21.5 %; Monocytes # (auto) 0.23 K/uL (0.11-0.59); Neutrophils # (auto) 2.11 K/uL (1.40-6.50); Neutrophils % (auto) 63.9 %; Ovalocytes 1+; Polychromasia 1+; Tear Drop Cells 2+
--- NOTE | 2024-01-25 06:55 | History & Physical Report ---
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 history GAVE/esophageal varices/portal hypertensive gastropathy/radiation proctitis/diverticulosis on endoscopy BPH/prostate cancer status post radiation, thoracic compression fracture Medical telemetry Transfuse PRBC to maintain patient's baseline hemoglobin of at least 8 IV Lasix now prior to transfusion Follow UA rule out UTI Urology consult Re: Persistent hematuria causing progressive anemia Abdominal ultrasound rule out ascites GI consult, paracentesis if ascites found on ultrasound. Basal bolus insulin, ISS BG goal 1 10-1 40, carb count coverage DVT prophylaxis. SCDs Re: Thrombocytopenia Full code Patient's son requesting updates from providers. Mr. Alex Hale, contact # [phone]. Text document was generated using [employer] voice recognition software. It may contain grammatical or spelling errors. Kindly contact undersigned for clarification of any documentation item in question. History of Present Illness Chief Complaint: Chest pain, SOB Primary Care Provider: Francisco Cisse MD History obtained from patient and records. 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 Multiple admissions (almost monthly) since July 2022. Last confinement last month for LGIB and chronic hematuria. Asymmetric bladder wall thickening versus intraluminal debris seen posteriorly on the right noted on imaging. Urology attributed hematuria to radiation cystitis, possible recurrent prostatic malignancy as per note. Outpatient follow-up with [facility] urologist recommended. Patient seen by [facility] urologist on follow-up visit last month following hospital admission. Office cystoscopy disclosed bleeding mucosa at the left bladder neck without clear papillary tumor. Consideration for radiation cystitis versus early urothelial malignancy as per note. Repeat cystoscopy, bladder biopsy, fulguration and possible TURBT contemplated next week. Persistent hematuria over the last few weeks without pain, urinary retention, fever or chills. Progressive abdominal distention without unusual pain. Patient compliant with home medications. Progressive hemoglobin drop on outpatient blood draws from 8 (12/23) to 7.4 (01/24) since last month. [facility] hematology provider recommended outpatient blood transfusion at [facility] 2 days from now. Patient told to go to ER with any chest pain or SOB symptoms. Overnight, patient with transient substernal pain symptoms mostly on exertion. Shortness of breath somewhat worse as well. No cough, no fever, no chills. Persistent hematuria without flank pain. Denies black/bloody stools. Chest pain relieved by nitroglycerin administration at home by EMS. 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 Allergies Allergy/AdvReac Type Severity Reaction Status Date / Time No Known Allergies Allergy Mild Verified 12/12/23 12:04 Home Medications Medication Instructions Recorded Confirmed Type allopurinol 100 mg tablet 200 mg PO BID 05/16/20 01/25/24 History finasteride 5 mg tablet 5 mg PO QAM 11/03/21 01/25/24 History furosemide 20 mg tablet (Lasix) 40 mg PO QAM 11/02/22 01/25/24 History insulin glargine 100 unit/mL 25 unit subcut QPM 11/05/22 01/25/24 History subcutaneous solution (Lantus U-100 Insulin) acetaminophen 325 mg tablet 650 mg PO Q8H PRN Pain 02/24/23 01/25/24 History (Tylenol) triamcinolone acetonide 0.1 % 1 applic topical BID PRN PSORIATIC 02/24/23 01/25/24 History topical cream LESIONS WHEN NEEDED pantoprazole 40 mg tablet,delayed 40 mg PO BID 90 days #180 tabs 02/28/23 01/25/24 Rx release Lactobacil.acidophilus-Bifido.animalis 1 cap PO QAM 05/17/23 01/25/24 History 5 billion cell sprinkle capsule (Probiotic) acetylcysteine 600 mg capsule 600 mg PO QAM 05/17/23 01/25/24 History ferrous sulfate 325 mg (65 mg 325 mg PO QAM 05/17/23 01/25/24 History iron) tablet (iron) ewvvynsbxlan-iwr-haggx acid-vit 1 tab PO DAILY 05/17/23 01/25/24 History K-lycop 400 mcg-20 mcg-370 mcg tablet (Men's 50 Plus Multivitamin) rifaximin 550 mg tablet (Xifaxan) 550 mg PO BID 05/17/23 01/25/24 History baclofen 5 mg tablet 5 mg PO AMPM PRN Spasms 07/24/23 01/25/24 History duloxetine 60 mg capsule,delayed 60 mg PO DAILY 09/21/23 01/25/24 History release (Cymbalta) metoclopramide HCl 5 mg tablet 5 mg PO TID PRN Nausea 09/21/23 01/25/24 History mirtazapine 30 mg tablet (Remeron) 30 mg PO HS 09/21/23 01/25/24 History lactulose 10 gram oral packet 10 g PO BID #15 ea 09/23/23 01/25/24 Rx (Kristalose) Past Med/Surg History Medical History Atypical chest pain Radiation cystitis Encounter for pre-operative examination History of blood transfusion 11/2022 Hepatocellular carcinoma Spinal fracture of T12 vertebra History of recent hospitalization 06/2023 [facility] hepatic encephalopathy Insulin dependent type 2 diabetes mellitus Liver spots Under surveillance, stable per patient Anxiety and depression 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 Anemia of chronic disease under surveillance Prostate cancer Hx radiation History of panic attacks Gout No current issues GERD (gastroesophageal reflux disease) GAVE (gastric antral vascular ectasia) CKD (chronic kidney disease) stage 3, GFR 30-59 ml/min Hypertension Hx Esophageal varices EGD 05/22/23 ([facility]): Grade 1 varices in distal esophagus without high risk stigmata Upper GI bleed Hx Psoriasis Surgical History History of left cataract surgery History of right cataract surgery History of prostate biopsy malignant S/P TIPS (transjugular intrahepatic portosystemic shunt) History of esophagogastroduodenoscopy (EGD) Most recent 05/2023 [facility] History of colonoscopy with polypectomy History of tonsillectomy and adenoidectomy History of abdominal paracentesis Multiple, most recent 01/2023 Family History Father , "3/4 liver gone due to drinking" Colorectal cancer, Onset Age: 63 Mother Lung cancer Daughter Cancer cervical and thyroid cancers Ovarian cancer Other No family history of adverse response to anesthesia 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 Smoking Status: Never smoker Second Hand Exposure: No; Do You Dip or Chew Tobacco: No; Tobacco Cessation Education Requested by Patient: No Hx Alcohol Use: No Hx Substance Use: No Preferred Language: Serbian Communication Ability: Effective Visual Impairment: No Limitations Hearing Ability: Normal Bone Char Kiln Operator Required: No Beliefs That Will Affect Care: None marital status: Current Living Situation: Spouse Current Living Situation Comment: 1 level single family home 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 How many Children do You have: 6 How many Children do You have Comment: one , eldest daughter in her sleep from seizure disorder Feels Safe at Home: Yes Childhood Exposure to Second-Hand Smoke: Yes Diet Comment: "I watch my sugar, average fasting is 140 mg/dl" caffeine: Yes (cola, sugar free, decaf) during the past year weight has: remained stable Dental Care, Regularly: No Physical Activity Frequency: Does not Exercise Seatbelt Use: always Sunscreen Use: Yes Assistive Devices: Oxygen - at Night and Walker Review of Systems Review of Systems: As per HPI, all other systems reviewed and negative Physical Exam Physical Exam: GENERAL: Coherent, comfortable, pleasant, slightly hard of hearing, no respiratory distress SKIN: Pallor, warm HEENT: Alopecia, bespectacled, pale palpebral conjunctivae, no ptosis, dry buccal mucosa NECK : Supple, no tenderness CHEST : Decreased breath sounds, no tenderness HEART : RRR, no obvious murmurs ABDOMEN: Marked abdominal distention, nontender BACK : Chronic mid back tenderness EXTREMITIES : Minimal LE swelling, no LE tenderness, no other conspicuous deformities noted NEUROLOGIC : Coherent, no facial asymmetry, gait and stance not assessed Results & Data Results & Data Vital Signs (Past 12 Hours) Vital Signs Temp Pulse Resp BP Pulse Ox O2 Del Method 01/25/24 06:09 64 01/25/24 05:30 62 153/68 H 96 Room Air 01/25/24 05:18 36.7 C 01/25/24 05:16 99 Room Air 01/25/24 05:07 64 15 149/64 H 98 Room Air 01/25/24 05:03 63 18 149/64 H 97 Room Air Laboratory Results Laboratory Results WBC 3.30 K/ul (4.8-10.8) L 01/25/24 05:05 RBC 2.22 M/uL (4.70-6.10) L 01/25/24 05:05 Hgb 6.6 g/dl (14.0-18.0) L* 01/25/24 05:05 Hct 21.2 % (42.0-52.0) L 01/25/24 05:05 MCV 95.5 fL (80.0-100.0) 01/25/24 05:05 MCH 29.7 pg (25.0-34.0) 01/25/24 05:05 MCHC 31.1 g/dL (32.0-36.0) L 01/25/24 05:05 RDW Std Deviation 64.6 fL (36.4-46.3) H 01/25/24 05:05 RDW Coeff of Violetta 18.8 % (11.5-14.5) H 01/25/24 05:05 Plt Count 84 K/uL (130-400) L 01/25/24 05:05 MPV 12.1 fL (9.4-12.4) 01/25/24 05:05 Immature Gran % (Auto) 0.6 % 01/25/24 05:05 Neut % (Auto) 63.9 % 01/25/24 05:05 Lymph % (Auto) 21.5 % 01/25/24 05:05 Ada % (Auto) 7.0 % 01/25/24 05:05 Eos % (Auto) 6.7 % 01/25/24 05:05 Baso % (Auto) 0.3 % 01/25/24 05:05 Neut # (Auto) 2.11 K/uL (1.40-6.50) 01/25/24 05:05 Lymph # (Auto) 0.71 K/uL (1.20-3.40) L 01/25/24 05:05 Ada # (Auto) 0.23 K/uL (0.11-0.59) 01/25/24 05:05 Eos # (Auto) 0.22 K/uL (0.00-0.50) 01/25/24 05:05 Baso # (Auto) 0.01 K/uL (0.00-0.20) 01/25/24 05:05 Immature Gran # (Auto) 0.02 K/uL (0.01-0.20) 01/25/24 05:05 Polychromasia 1+ 01/25/24 05:05 Hypochromasia Present 01/25/24 05:05 Tear Drop Cells 2+ 01/25/24 05:05 Ovalocytes 1+ 01/25/24 05:05 Sodium 142 mmol/L (136-145) 01/25/24 05:05 Potassium 4.3 mmol/L (3.5-5.1) 01/25/24 05:05 Chloride 116 mmol/L (98-107) H 01/25/24 05:05 Carbon Dioxide 20 mmol/L (21-32) L 01/25/24 05:05 Anion Gap 6 (3-11) 01/25/24 05:05 BUN 25 mg/dl (6-23) H 01/25/24 05:05 Creatinine 1.35 mg/dl (0.6-1.4) 01/25/24 05:05 Est Cr Clr Drug Dosing 50.3 ml/min 01/25/24 05:05 Est GFR ( Amer) 59.9 ml/min 01/25/24 05:05 Est GFR (Non-Af Amer) 51.7 ml/min 01/25/24 05:05 BUN/Creatinine Ratio 18.5 (10-20) 01/25/24 05:05 Glucose 167 mg/dl (70-99(Fasting)) H 01/25/24 05:05 Calcium 8.1 mg/dl (8.6-10.3) L 01/25/24 05:05 Magnesium 1.6 mg/dl (1.7-2.4) L 01/25/24 05:05 Troponin I High Sens 14.8 pg/ml (0-20) 01/25/24 05:05 SARS-CoV-2 (PCR) NEGATIVE (Negative) 01/25/24 05:43 Influenza Type A (PCR) Negative (Neg) 01/25/24 05:43 Influenza Type B (PCR) Negative (Neg) 01/25/24 05:43 RSV (RT-PCR) Negative (Neg) 01/25/24 05:43 Crossmatch See Detail 01/25/24 05:05 Diagnostic Findings Chest x-ray as per my interpretation cardiomegaly, congestion EKG as per my interpretation : Rate 65, NSR, LAD, LAFB, T wave abnormalities septal leads
--- NOTE | 2024-01-25 07:14 | Electrocardiogram Report ---
Test Reason : Blood Pressure : / mmHG Vent. Rate : 064 BPM Atrial Rate : 064 BPM P-R Int : 180 ms QRS Dur : 082 ms QT Int : 478 ms P-R-T Axes : 049 -15 075 degrees QTc Int : 493 ms Normal sinus rhythm Nonspecific ST and T wave abnormality Prolonged QT Abnormal ECG When compared with ECG of 12-DEC-2023 11:01, No significant change was found Confirmed by Jose Ramon Rizvi ([id number]) on 01/25/2024 7:14:22 AM Referred By: REFERRED SELF Confirmed By:Greyson Rizvi
--- NOTE | 2024-01-25 07:14 | XRay Report ---
SINGLE VIEW CHEST CLINICAL HISTORY: Atypical chest pain. FINDINGS: An AP, portable, upright chest radiograph is compared to study dated 09/21/2023. The heart is enlarged noting atherosclerotic calcification of the thoracic aorta. There is pulmonary vascular c ongestion. There is bibasilar scarring/atelectasis. No airspace consolidation or large pleural effusi on is identified. No pneumothorax is seen. The skeletal structures are osteopenic. The bony thorax is grossly intact. IMPRESSION: Cardiomegaly with pulmonary vascular congestion. ACT 112: Negative or not required by law. Electronically signed by: Scott Yepez M.D. 01/25/2024 7:13 AM
[2024-01-25] MEDS ORDERED: ACETAMINOPHEN 500 MG TAB PO PRN (07:24)
[2024-01-25] MEDS ORDERED: oxyCODONE HCL IR 5 MG TAB (IMMEDIATE RELEASE) PO PRN (07:24)
[2024-01-25] MEDS ORDERED: GLUCOSE 40% GEL 15 GM TUBE PO PRN (09:02)
[2024-01-25] MEDS ORDERED: GLUCAGON FOR INJ 1 MG VIAL SQ PRN (09:02)
[2024-01-25] MEDS ORDERED: CARBOHYDRATES FOR HYPOGLYCEMIA PO PRN (09:02)
[2024-01-25] MEDS ORDERED: DEXTROSE 50% 50 ML SYRINGE IV PRN (09:02)
[2024-01-25] MEDS ORDERED: GLUCOSE 10 TAB/TUBE PO PRN (09:02)
[2024-01-25] MEDS ORDERED: BACLOFEN 10 MG TAB PO PRN (09:02)
--- NOTE | 2024-01-25 09:07 | Urology Consultation ---
Date of Consultation January 25, 2024 Assessment & Plan (1) Anemia: (2) Radiation cystitis: (3) Hematuria: Plan 73-year-old male with a history of prostate cancer status post radiation treatment. He follows with Dr. Peraza of [facility] urology. He has had several recent admissions due to anemia and hematochezia. He also has a history of hematuria likely due to radiation cystitis. He was admitted earlier today due to chest pain. Urology was consulted for hematuria and anemia. No urologic intervention necessary. Only reason for procedure would be clot retention that cannot be managed with a Kan catheter. Patient is emptying his bladder and offered him a catheter but he would prefer not to have this and I do not think it is medically indicated Transfuse as needed per primary team Anemia is likely multifactorial. It is very rare to see significant anemia solely from hematuria (especially given patient's current minor hematuria) and given his previous history I suspect this is a combination of multiple issues Suspect bleeding is from radiation cystitis and patient ultimately needs to follow-up with his urologist and have the above-mentioned procedure this if possible. Also discussed with the patient that he should inquire about hyperbaric oxygen treatment with his urologist as this is the only documented treatment they can help with radiation cystitis Urology to sign off. Recommend patient follow-up with primary urologist for scheduled procedure on . History of Present Illness Attending Physician: Dangelo George MD History of Present Illness 73-year-old male with a history of prostate cancer status post radiation treatment. He follows with Dr. Peraza of [facility] urology. He has had several recent admissions due to anemia and hematochezia. He also has a history of hematuria likely due to radiation cystitis. He was admitted earlier today due to chest pain. He has been afebrile with stable vitals. Labs showed a hemoglobin of 6.6, white blood cell count of 3.3, creatinine of 1.35. No cross- sectional imaging was done today. Urology was consulted due to hematuria. Patient reports his hematuria is intermittent and is overall stable today. Urine is cranberry colored but he is not passing any large clots. Feels like he is emptying his bladder. Scheduled for procedure to treat this with his urologist this upcoming . Allergies Allergy/AdvReac Type Severity Reaction Status Date / Time No Known Allergies Allergy Mild Verified 12/12/23 12:04 Home Medications Medication Instructions Recorded Confirmed Type allopurinol 100 mg tablet 200 mg PO BID 05/16/20 01/25/24 History finasteride 5 mg tablet 5 mg PO QAM 11/03/21 01/25/24 History furosemide 20 mg tablet (Lasix) 40 mg PO QAM 11/02/22 01/25/24 History insulin glargine 100 unit/mL 25 unit subcut QPM 11/05/22 01/25/24 History subcutaneous solution (Lantus U-100 Insulin) acetaminophen 325 mg tablet 650 mg PO Q8H PRN Pain 02/24/23 01/25/24 History (Tylenol) triamcinolone acetonide 0.1 % 1 applic topical BID PRN PSORIATIC 02/24/23 01/25/24 History topical cream LESIONS WHEN NEEDED pantoprazole 40 mg tablet,delayed 40 mg PO BID 90 days #180 tabs 02/28/23 01/25/24 Rx release Lactobacil.acidophilus-Bifido.animalis 1 cap PO QAM 05/17/23 01/25/24 History 5 billion cell sprinkle capsule (Probiotic) acetylcysteine 600 mg capsule 600 mg PO QAM 05/17/23 01/25/24 History ferrous sulfate 325 mg (65 mg 325 mg PO QAM 05/17/23 01/25/24 History iron) tablet (iron) ffvcwublkdod-fhe-jvbcx acid-vit 1 tab PO DAILY 05/17/23 01/25/24 History K-lycop 400 mcg-20 mcg-370 mcg tablet (Men's 50 Plus Multivitamin) rifaximin 550 mg tablet (Xifaxan) 550 mg PO BID 05/17/23 01/25/24 History baclofen 5 mg tablet 5 mg PO AMPM PRN Spasms 07/24/23 01/25/24 History duloxetine 60 mg capsule,delayed 60 mg PO DAILY 09/21/23 01/25/24 History release (Cymbalta) metoclopramide HCl 5 mg tablet 5 mg PO TID PRN Nausea 09/21/23 01/25/24 History mirtazapine 30 mg tablet (Remeron) 30 mg PO HS 09/21/23 01/25/24 History lactulose 10 gram oral packet 10 g PO BID #15 ea 09/23/23 01/25/24 Rx (Kristalose) Patient History Medical History Atypical chest pain Radiation cystitis Encounter for pre-operative examination History of blood transfusion 11/2022 Hepatocellular carcinoma Spinal fracture of T12 vertebra History of recent hospitalization 06/2023 [facility] hepatic encephalopathy Insulin dependent type 2 diabetes mellitus Liver spots Under surveillance, stable per patient Anxiety and depression 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 Anemia of chronic disease under surveillance Prostate cancer Hx radiation History of panic attacks Gout No current issues GERD (gastroesophageal reflux disease) GAVE (gastric antral vascular ectasia) CKD (chronic kidney disease) stage 3, GFR 30-59 ml/min Hypertension Hx Esophageal varices EGD 05/22/23 ([facility]): Grade 1 varices in distal esophagus without high risk stigmata Upper GI bleed Hx Psoriasis Surgical History History of left cataract surgery History of right cataract surgery History of prostate biopsy malignant S/P TIPS (transjugular intrahepatic portosystemic shunt) History of esophagogastroduodenoscopy (EGD) Most recent 05/2023 [facility] History of colonoscopy with polypectomy History of tonsillectomy and adenoidectomy History of abdominal paracentesis Multiple, most recent 01/2023 Family History Father , "3/4 liver gone due to drinking" Colorectal cancer, Onset Age: 63 Mother Lung cancer Daughter Cancer cervical and thyroid cancers Ovarian cancer Other No family history of adverse response to anesthesia 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 Smoking Status: Never smoker Second Hand Exposure: No; Do You Dip or Chew Tobacco: No; Hx Alcohol Use: No Hx Substance Use: No Preferred Language: Egyptian Communication Ability: Effective Visual Impairment: No Limitations Hearing Ability: Normal Plate Straightener Required: No Beliefs That Will Affect Care: None marital status: Current Living Situation: Spouse Current Living Situation Comment: 1 level single family home 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 How many Children do You have: 6 How many Children do You have Comment: one , eldest daughter in her sleep from seizure disorder Feels Safe at Home: Yes Childhood Exposure to Second-Hand Smoke: Yes Diet Comment: "I watch my sugar, average fasting is 140 mg/dl" caffeine: Yes (cola, sugar free, decaf) during the past year weight has: remained stable Dental Care, Regularly: No Physical Activity Frequency: Does not Exercise Seatbelt Use: always Sunscreen Use: Yes Assistive Devices: Oxygen - at Night and Wheelchair Review of Systems Review of Systems: 14 point review of systems negative outs papa of what is listed above in HPI Physical Exam Physical Exam: General: Alert and oriented, no acute distress HEENT: Normocephalic, mucous membranes moist Pulmonary: Nonlabored respirations Abdomen: Nondistended Extremities: Moves all 4 spontaneously Neuro: No gross deficits Skin: Warm, dry, no rashes noted Results & Data Vital Signs (Past 12 Hours) Vital Signs Temp Pulse Pulse Resp BP BP Pulse Ox 01/25/24 08:50 36.4 C L 64 18 146/68 H 99 01/25/24 08:35 36.4 C L 65 18 144/66 H 98 01/25/24 08:20 36.4 C L 65 18 152/66 H 98 01/25/24 08:06 36.6 C 64 18 156/74 H 98 01/25/24 07:50 36.5 C 60 16 137/73 99 01/25/24 07:45 36.6 C 65 16 136/65 98 01/25/24 07:40 36.5 C 65 16 142/72 H 99 01/25/24 07:37 36.6 C 65 18 154/95 H 98 01/25/24 07:00 65 18 137/72 97 01/25/24 06:09 64 01/25/24 05:30 62 153/68 H 96 01/25/24 05:18 36.7 C 01/25/24 05:16 99 01/25/24 05:07 64 15 149/64 H 98 01/25/24 05:03 63 18 149/64 H 97 O2 Del Method 01/25/24 08:50 01/25/24 08:35 01/25/24 08:20 01/25/24 08:06 01/25/24 07:50 01/25/24 07:45 01/25/24 07:40 01/25/24 07:37 01/25/24 07:00 Room Air 01/25/24 06:09 01/25/24 05:30 Room Air 01/25/24 05:18 01/25/24 05:16 Room Air 01/25/24 05:07 Room Air 01/25/24 05:03 Room Air PG Care Time/CCT Total # of Minutes Spent Total Time Spent with Patient: Total time spent is greater than 50% in coordination of care (as documented) at patient's floor/unit and/or counseling patient: Coding Level of Care Code 40680 INT INP/OBS CARE 2/55MIN Diagnoses Anemia D50.0 Anemia type: iron deficiency Iron deficiency anemia type: chronic blood loss Radiation cystitis N30.40 Hematuria R31.9 (1) Anemia Anemia type: iron deficiency Iron deficiency anemia type: chronic blood loss Qualified Code(s): D50.0 - Iron deficiency anemia secondary to blood loss (chronic)
[2024-01-25] MEDS: FUROSEMIDE 40 MG/4 ML VIAL IV ONE (09:36)
[2024-01-25] MEDS: INSULIN ASPART PER UNIT CHARGE SC SCH (09:40)
[2024-01-25] MEDS: CEROVITE ADV FORMULA TAB PO SCH (10:34)
[2024-01-25] MEDS: LACTULOSE SYRUP 10 GM/15 ML BTL 960 ML PO SCH (10:34)
[2024-01-25] MEDS: PANTOprazole 40 MG TAB PO SCH (10:35)
[2024-01-25] MEDS: FINASTERIDE 5 MG TAB PO SCH (10:35)
[2024-01-25] MEDS: allopurinoL 100 MG TAB PO SCH (10:35)
[2024-01-25] MEDS: FERROUS SULFATE 325 MG TAB PO SCH (10:35)
[2024-01-25] MEDS: ADVANCED PROBIOTIC 650 MG CAPSULE PO SCH (10:35)
[2024-01-25] MEDS: rifAXIMin 550 MG TABLET PO SCH (10:35)
[2024-01-25] MEDS: ACETYLCYSTEINE 600 MG CAP PO SCH (10:35)
[2024-01-25] MEDS: DULoxetine HCL 30 MG CAP PO SCH (10:35)
[2024-01-25] MEDS: PROMETHAZINE HCL 6.25 MG in SODIUM CHLORIDE 0.9% 50 ML IV PRN (12:32)
[2024-01-25] MEDS: METOCLOPRAMIDE HCL INJ 5 MG/ML 2 ML VIAL IV ONE (13:39)
--- NOTE | 2024-01-25 14:46 | Communication Note ---
Date of Service: January 25, 2024 Patient was seen and examined at bedside. 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 Also progressive abdominal distention without unusual pain. Patient reports compliance with home medication. Patient noted to have progressive hemoglobin drop. 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 He is being managed for the following: Shortness of breath on exertion Chest pain Symptomatic anemia Acute on chronic anemia likely secondary to blood loss/hematuria Patient presenting with chest pain and shortness of breath with exertion. Troponin and EKG WNL at presentation. Patient reports persistent hematuria for few weeks prior to arrival, admitting hemoglobin of 6.6. Patient being transfused with PRBC, follow H&H. Iv lasix w/ transfusion. Patient denies any blood in the stool or black stool. Patient reports improvement in chest pain, no further chest pain. Continue telemetry monitoring. Hematuria History of radiation cystitis Patient with history of prostate cancer status post radiation treatment, follows with Dr. Peraza of [facility] urology. Urology evaluated, conservative management for now. Patient reports improving color of the urine. Patient to follow-up with urology in a week time upon discharge. 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 GI consult, paracentesis if ascites found on ultrasound. hepatocellular carcinoma status post IR embolization, possible recurrent tumor on imaging last month, outpatient IR procedure contemplated as per GI notes hx portal vein thrombus as per records DM2 insulin requiring, well-controlled as of recent hemoglobin A1c of 5.03 November 2023. history GAVE/esophageal varices/portal hypertensive gastropathy/radiation proctitis/diverticulosis on endoscopy BPH/prostate cancer status post radiation, thoracic compression fracture DVT prophylaxis. SCDs Re: Thrombocytopenia Full code Patient's son Mr. Alex Hale, contact # [phone]. Text document was generated using mLED voice recognition software. It may contain grammatical or spelling errors. Kindly contact undersigned for clarification of any documentation item in question.
[2024-01-25 15:18] LABS: Hematocrit (blood only) 26.3 % (42.0-52.0); Hemoglobin 8.4 g/dl (14.0-18.0)
--- OUTSIDE RECORDS SUMMARY | 2024-01-25 17:06 | External Medical Summary | Summary of Care ---
Author Name Unknown Organization [facility] Address [address] [address] [address] Phone [phone] Care Team Providers Care Morning [employer] Anchor Name Role Phone Francisco Cisse MD Primary Care Provider + Reason for Visit * Reason Comments Follow Up Follow up Encounter Details Date Type Department Care Team (Late st Contact Info) Description 01/24/2024 2:00 PM EST Office Visit Gastroenterology, [facility] [address] [place] [address] Lamar Tatum CRNP [address] [place] [address] NAFLD (nonalcoholic fatty liver disease)*; Cirrhosis of liver with ascites, unspecified hepatic cirrhosis type (HCC); HCC (hepatocellular carcinoma) (HCC); Hemoglobinuria Allergies No known active allergiesdocumented as of this encounter (statuses as of 01/24/2024) Medications Medication Sig Dispensed Refills Start Date [...] Oral Capsule 1 Capsule. 0 05/17/2023 Active Furosemide 20 MG Oral Tablet (Lasix)Indications:C irrhosis of liver with ascites, unspecified hepatic cirrhosis type (HCC) Take 2 Tablets by mouth in the morning. 180 Tablet 3 07/30/2023 Active oxygen IN GAS Use 2 L/min(Oxygen) as directed at bedtime. 0 Active Albumin Human 25 % Intravenous SolutionIndications: Cirrhosis of liver with ascites, unspecified hepatic cirrhosis type (HCC) 25Gm before and after paracentesis 100 mL [...] the morning. 90 Tablet 1 09/02/2023 Active Zoster Vac Recomb Adjuvanted 50 MCG/0.5ML [...] before bedtime. 180 Tablet 5 11/26/2023 Active DULoxetine HCl 30 MG Oral Capsule Delayed Release Particles (Cymbalta) Take 1 Capsule by mouth in the morning. 90 Capsule 1 01/02/2024 Active Lantus SoloStar 100 UNIT/ML Subcutaneous Solution Pen-injector once. 0 11/13/2023 Active Hospital, Clinic, or Other Facility Administered [...] as of this encounter (statuses as of 01/24/2024) Active Problems Problem Noted Date Diagnosed Date Abnormal cystoscopy 12/19/2023 Hematuria, gross 12/19/2023 Protein-calorie malnutrition 12/06/2023 Prostate cancer 12/06/2023 Closed [...] as of this encounter (statuses as of 01/24/2024) Resolved Problems Problem Noted Date Diagnosed Date [...] as of this encounter (statuses as of 01/24/2024) Immunizations Name Administration Dates Next Due COVID-19 mRNA, LNP-s, No Pre serve, 2-Dose Series ([employer]) 03/08/2021,02/15/2021 HepA Inact/HepB Recomb>=18yrs old 12/04/2019,04/2019,05/20/2019 11/19/2019 PPD 06/18/2017, 3,01/09/2012,06/2011 Pneumococcal Conjugate Vacc, 13 Valent (Prevnar) 05/01/2017 Pneumococcal Polysaccharide PPV23 (Pneumovax) 08/28/2022,10/25/2015,07/14/2012 Season Influenza, Quad, PF, Adjuvanted, 65+ Yrs, IM (FLUAD) 10/07/2020(Deferred: Patient Refused - pt says he already had his shot last month at [facility] Handy Lyons and Mckinley Cobian made [...] = 0.6 oz pur e alcohol) 1971 - last use PHQ-2 Answer Date Recorded PHQ Adult Total [...] Sign Reading Time Taken Comments Blood Pressure 141/72 01/24/2024 2:43 PM EST Pulse 71 01/24/2024 2:43 PM EST Temperature 36.8 C (98.2 F) 01/24/2024 2:43 PM ES T Respiratory Rate - - Oxygen Saturation 98% 01/24/2024 2:43 PM EST Inhaled Oxygen Concentration - - Weight 87.5 kg (192 lb 12.8 oz) 01/24/2024 2:43 PM EST Height - - Body Mass Index 29.91 12/26/2023 9:26 AM EST documented in this encounter Functional [...] as of this encounter Progress Notes * Lamar Tatum CRNP - 01/24/2024 2:41 PM EST CC: f/u FOFANA cirrhosis with ascites post TIPs, prior HE, EV, HCC HPI: Recall that Mr. Luis Hale is a 73 yr old male pt of Dr. Hill with a hx of DM-2, FOFANA cirrhosis, obesity and psoriasis who presents today for recheck NAFLD cirrhosis. He transferred here from [facility] hepatology in July 2020. TIPs was completed on 10/07/20. Revision Jan 2021. Hx of TACE for HCC. On the liver transplant list,followed by [facility]. Followed by Hem/onc anemia clinic. Interim Hx: He called in a few days ago stating that he wasn't feeling well but didn't want to go to the ED andthis semi-urgent appt was arranged. Abd is enlarging, up about 6 lbs. Not interfering w walking or causing SOB. Describes palpitations, "like my heart is going bom, bom, bom," but not rapid. Suspectsanemia. Anemia: Hb at [facility] on 12/15 7.2/Hct 22.4 BUN 20, Cr 1.23. MELD 3.0: 14 at 12/23/2023 4:24 PM Calculated from: Serum Creatinine: 1.4 mg/dL at 12/23/2023 4:24 PM Serum Sodium: 141 mmol/L (Using max of 137 mmol/L) at 12/23/2023 4:24 PM Total Bilirubin: 1.7 mg/dL at 12/23/2023 4:24 PM Serum Albumin: 3.1 g/dL at 12/23/2023 4:24 PM INR(ratio): 1.2 at 12/23/2023 4:24 PM Age at listin years Sex: Male at 12/23/2023 4:24 PM Decompensations: EV: iradicated. Most recent EGD 08/09/23: portal hypertensive gastropathy, no varices Radiation Proctitis: Flex sig 02/01/22 and 04/12/22: APC'ed. No mention on Aug 2023 colonoscopy. Hepatic Encephalopathy: most recently July 2023 currently on Lactulose 15ml BID and Rifaximin. Ascites: Furosemide 40mg daily - Post TIPs and revision - Most recent paracentesis at [facility] 08/28/23 4.5L removed. Hx HCC: Liver MRI [...] removed, moderate sigmoid/descending colon diverticulosis, internal hemorrhoids. EXAM: BP 141/72 (BP Site: Right Arm, BP Position: Sitting) | Pulse 71 | Temp 36.8 C (98.2 F) | Wt 87.5 kg (192 lb 12.8 oz) | SpO2 98% | BMI 29.91 kg/m | BSA 2.04 m GENERAL: 73 year old male well developed and well nourished in no acute distress, AAO w/o any evidence of hepatic encephalopathy SKIN: + rash consistent w guttate psoriasis, no jaundice or spider angiomata HEENT: normocephalic, sclera clear, pharynx normal NECK: supple, no lymphadenopathy, no masses or thyroid enlargement LUNGS: clear to auscultation anterior and posterior HEART: regular rate & rhythm, no murmurs and no gallops ABDOMEN: moderate, not taunt ascites, normo-active bowel sounds, soft, non- tender, no masses, no hepatosplenomegaly, no rebound or guarding, no bruits EXTREMITIES: no palmar erythema, no edema, no skin discoloration, no clubbing, no cyanosis NEURO: able to tell me the name of the president, today's date, appropriate answers to all questions, no asterixes, no lateralizing findings, Sensory/Motor grossly normal IMPRESSION/RECOMMENDATIONS: 73 year old male with NAFLD (nonalcoholic fatty liver disease) (Primary) Cirrhosis of liver with ascites, unspecified hepatic cirrhosis type (HCC) - CBC WITH WBC DIFFERENTIAL; Future; Expected date: 01/24/2024 - COMPREHENSIVE METABOLIC PANEL - BILIRUBIN, DIRECT; Future; Expected date: 01/24/2024 - URINALYSIS, REFLEX TO MICROSCOPIC; Future; Expected date: 01/24/2024 - CULTURE, URINE, QUANTITATIVE; Future; Expected date: 01/24/2024 HCC (hepatocellular carcinoma) (HCC) Discussed w pt who tells me he was unaware that the lesion increased in size. I reminded him that [facility] called him and explained this - though at that time I had told him that procedure could be doneat [facility]. Today, I placed an IR referral for [facility] for tx. A new telephone encounter was started w another order for IR (previously ordered for [facility], now ordered for [facility] per Dr. Daley recommendations that the procedure is not done in [place]). Encourter routed to Jocelyne Sykes RN liver payroll coordinator to help with scheduling in IR. Hemoglobinuria - CULTURE, URINE, QUANTITATIVE; Future; Expected date: 01/24/2024 Typically takes furosemide 40mg QAM. TOld to take one 20mg pill this evening in addition. Recheck in GI in April I spent a total of 40 minutes on the date of service in [...] documented in this encounter Nursing Notes * Arlette Cortes RN - 01/24/2024 2:48 PM EST Patient identified by full name and date of Chief Complaint Patient presents with Follow Up Follow up documented in this encounter Plan of Treatment Upcoming Encounters Date Type Department Care Team (Latest Contact Info) Description 01/27/2024 10:00 AM EST Hem/Onc Treatment Hematology/Oncolo gy Treatment, [place] [address] [place] [phone] 01/30/2024 12:42 PM EST Hospital Encounter OR [facility], Operating Room, [facility] - 4th Floor [address] [place] [address] Frank Peraza MD [address] [place] [address] 01/30/2024 12:42 PM EST - 01/30/2024 1:44 PM EST Surgery OR [facility], Operating Room, [facility] Floor [address] [place] [address] Frank Peraza MD [address] [place] [address] CYSTOURETHROSCOPY WITH FULGURATION MEDIUM BLADDER TUMOR 02/04/2024 8:40 AM EST Laboratory Lab Mobile Phlebotomy [facility] [address] [place] [address] [facility], [facility] Mobile Home Draw [address] [place] [address] 02/07/2024 11:00 AM EST Telemedicine [facility], [place] [address] [place] [address] Aidee Miller PA-C [address] [place] [address] Kriss Mays, [facility] [employer] Tester [address] [place] [address] 02/14/2024 2:45 PM EDT Office Visit Urology Lynnette Fitzpatrick [address] [place] [address] Frank Peraza MD [address] [place] [address] 02/18/2024 8:40 AM EDT Laboratory Lab Mobile Phlebotomy [facility] [address] [place] [address] [facility], [facility] Mobile Home Draw [address] [place] [address] 03/03/2024 8:40 AM EDT Laboratory Lab Mobile Phlebotomy [facility] [address] [place] [address] [facility], [facility] Mobile Home Draw [address] [place] [address] 03/13/2024 2:00 PM EDT Office Visit Dermatology [facility] [place] [address] [facility] [place] [address] Francisco Watson MD [address] [facility] [place] [address] 03/17/2024 8:40 AM EDT Laboratory Lab Mobile Phlebotomy [facility] [address] [place] [address] [facility], [facility] Mobile Home Draw [address] [place] [address] 03/24/2024 2:30 PM EDT Office Visit Hematology/Oncolo gy [facility] [address] [place] [phone] Ayaka Tatum CRNP [address] [place] [address] 03/30/2024 12:00 PM EDT Office Visit Family Practice [facility] [address] [place] [address] Kristen Vences DO [address] [place] [address] 03/31/2024 8:40 AM EDT Laboratory Lab Mobile Phlebotomy [facility] [address] [place] [address] [facility], [facility] Mobile Home Draw [address] [place] [address] 04/07/2024 10:00 AM EDT Office Visit Gastroenterology, [facility] [address] [place] [address] Lamar Tatum CRNP [address] [place] [address] 04/14/2024 8:40 AM EDT Laboratory Lab Mobile Phlebotomy [facility] [address] [place] [address] [facility], [facility] Mobile Home Draw [address] [place] [address] 04/28/2024 8:40 AM EDT Laboratory Lab Mobile Phlebotomy [facility] [address] [place] [address] [facility] Mobile Home Draw [address] [place] [address] 05/12/2024 8:40 AM EDT Laboratory Lab Mobile Phlebotomy [facility] [address] [place] [address] [facility], [facility] Mobile Home Draw [address] [place] [address] 05/26/2024 8:40 AM EDT Laboratory Lab Mobile Phlebotomy [facility] [address] [place] [address] [facility] Mobile Home Draw [address] [place] [address] 06/09/2024 8:40 AM EDT Laboratory Lab Mobile Phlebot[facility] [address] [place] [address] [facility] Draw [address] [place] [address] 06/23/2024 8:40 AM EDT Laboratory Lab [facility] Phle[facility] [address] [place] [address] [facility] Draw [address] [place] [address] 07/07/2024 8:40 AM EDT Laboratory Lab Mobile Phlebot[facility] [address] [place] [address] [facility] Draw [address] [place] [address] 07/21/2024 8:40 AM EDT Laboratory Lab Mobile Phlebot[facility] [address] [place] [address] [facility] Draw [address] [place] [address] 08/04/2024 8:40 AM EDT Laboratory Lab Mobile Phlebotomy [facility] [address] [place] [address] [facility], [facility] Mobile Home Draw [address] [place] [address] 08/18/2024 8:40 AM EDT Laboratory Lab Mobile Phlebotomy [facility] [address] [place] [address] [facility], [facility] Mobile Home Draw [address] [place] [address] 08/20/2024 10:15 AM EDT Office Visit Ophthalmology, [address] [address] Cody Gonzalez DO [address] [place] [address] 09/01/2024 8:40 AM EDT Laboratory Lab Mobile Phlebotomy [facility] [address] [place] [address] [facility], [facility] Mobile Home Draw [address] [place] [address] 09/15/2024 8:40 AM EDT Laboratory Lab Mobile Phlebotomy [facility] [address] [place] [address] [facility], [facility] Mobile Home Draw [address] [place] [address] Pending Results Name Type Priority Associated Diagnoses Date /Time COMPREHENSIVE METABOLIC PANEL Lab Routine Cirrhosis of liver with ascites, unspecified hepatic cirrhosis type (HCC) 01/24/2024 3:05 PM EST BILIRUBIN, DIRECT Lab Routine Cirrhosis of liver with ascites, unspecified hepatic cirrhosis type (HCC) 01/24/2024 3:05 PM EST URINALYSIS, REFLEX TO MICROSCOPIC Lab Routine Cirrhosis of liver with ascites, unspecified hepatic cirrhosis type (HCC) 01/24/2024 3:10 PM EST CULTURE, URINE, QUANTITATIVE Lab Routine Cirrhosis of liver with ascites, unspecified hepatic cirrhosis type (HCC) Hemoglobinuria 01/24/2024 3:10 PM EST Scheduled Orders Name Type Priority Associated Diagnoses Orde r Schedule BILIRUBIN, DIRECT Lab Routine Cirrhosis of liver with ascites, unspecified hepatic cirrhosis type (HCC) Expected: 01/24/2024, Expires: 01/24/2025 URINALYSIS, REFLEX TO MICROSCOPIC Lab Routine Cirrhosis of liver with ascites, unspecified hepatic cirrhosis type (HCC) Expected: 01/24/2024, Expires: 01/24/2025 CULTURE, URINE, QUANTITATIVE Lab Routine Cirrhosis of liver with ascites, unspecified hepatic cirrhosis type (HCC) Hemoglobinuria Expected: 01/24/2024, Expires: 01/24/2025 Scheduled Procedures Name Priority Associated Diagnoses Date/Ti me CYSTOURETHROSCOPY WITH FULGU RATION MEDIUM BLADDER TUMOR Hematuria, gross Abnormal cystoscopy 01/30/2024 12:42 PM EST COLONOSCOPY FLEXIBLE PROXIMA L DIAGNOSTIC Recall History of colonic polyps Portal [...] Additional history exists CKD PHOS USE SMARTSET 62484 01/28/202401/03, 07/26/2022, 12/05/2021, Additional history exists Diabetic Foot Exam 03/06/2024 03/06/2023, 0 01/03/2022, 03/02/2021, Additional history exists HbA1c 05/28/2024 11/27/2023, 05/03, 01/28/2023, Additional history exists Albumin/Creatinine Ratio 07/12/2024 023, 10/01/2022, 09/11/2021, Additional history exists GFR 07/17/2024 01/17/2024, 12/03, 11/16/2023, Additional history exists COLONOSCOPY-ANNUAL AGES 18-100 08/09/2024 08/09/2023, 11/07/2022, 11/07/2022, Additional history exists CKD HGB USE SMARTSET 68620 01/24/202501/24, 01/24/2024, 01/21/2024, Additional history exists Lipid Panel 01/28/2028 01/28/2023, [...] this encounter Medical Devices Implanted Type Area Slot Tag Inserter Device Identifier Shelf Expiration Date Model / Serial / Lot Clareon Iol Aspheric Hydrophobic Acrylic Iol Implanted:Qty: 1 on 04/23/2023 by Cody Gonzalez DO at [facility] Lens Left: Eye 11/12/2025 [id number] / [id number] / Viatorr Tips Endoprosthesis 8-10 Mm X 8cm / 2cm Implanted:Qty: 1 on 10/07/2020 by Go Alvarado MD at [facility] Right: Abdomen 03/03/2023 [id number] / / [id number] Description:Viatorr TIPS End oprosthesis 8-10 mm x 8cm / 2cm, Manufactored by [employer] Syr Pf 2ml Embospheres 100-300 - [id number] Implanted:Qty: 1 on 04/18/2021 by Kevin Lim DO at OR [facility] Left: Abdomen Management [employer] [id number] 11/25/2023 [id number] / / [id number] -5 Lipiodol Injection - [id number] Implanted:Qty: 1 on 03/28/2022 at [facility] [employer] 03/01/2023 [id number] 01-2 [id number] Syr Pf 2ml Embospheres 100-300 - [id number] Implanted:Qty: 1 on 03/28/2022 at [facility] [employer] [id number] 08/31/2024 [id number] / / [id number] -5 Clareon Iol Aspheric Hydrophobic Acrylic Iol Implanted:Qty: 1 on 04/02/2023 by Cody Gonzalez DO at OR [facility] Right: Eye [employer]AZ[employer] 11/12/2025 CNA0T0 / [id number] / documented as of this encounter Visit Diagnoses Diagnosis Hematuria, gross- Primary Gross hematuria Prostate cancer (HCC) Malignant neoplasm of prostate Abnormal cystoscopy Other nonspecific abnormal finding NAFLD (nonalcoholic fatty liver disease)- Primary Other chronic nonalcoholic liver disease Cirrhosis of liver with ascites, unspecified hepatic cirrhosis type (HCC) HCC (hepatocellular carcinoma) (HCC) Malignant neoplasm of liver, primary Hemoglobinuria Hematuria, gross Gross hematuria Abnormal cystoscopy Other nonspecific abnormal finding documented in this encounter Advance Directives Documents on File Type Date Recorded Patient Load Tallier Expl anation Advance Directives and Living Will 12/11/2022 ADVANCE DIRECTIVE / LIVING WILL LIVING WILL Power of Automatic Car Wash Attendant 12/11/2022 POWER OF A TTORNEY Latest Code [...] the patient have Health Care Power of Automatic Car Wash Attendant? No Full Code 07/22/2014 9:56 PM 07/24/2014 8:18 PM This order reflects the patients wishes and were consensually agreed upon. Question Answer Comments Discussion of Advance Directives occurred with: Patient Does the patient have a Living Will? No Does the patient have Health Care Power of Automatic Car Wash Attendant? No Care Teams Morning News Anchor Relationship Specialty Start Date End Date Francisco Cisse MD [address] [place] [address] PCP - General Internal Medicine 09/04/21 documented as of this encounter
--- OUTSIDE RECORDS SUMMARY | 2024-01-25 17:06 | External Medical Summary | Summary of Care ---
Author Name Unknown Organization [facility] Address [address] [facility] [place] [address] Phone [phone] Care Team Providers Care Stock Plan Administrator Name Role Phone Francisco Cisse MD Primary Care Provider + Reason for Visit * Reason Onset Date Comments Abnormal Lab Results 01/24/2024 hgb Encounter Details Date Type Department Care Team (Late st Contact Info) Description 01/24/2024 Telephone Hematology/Oncology [facility] [place] 200 [facility] [address] Ayaka Tatum CRNP 400 [facility] [place] [address] Abnormal Lab Results (hgb) Allergies No known active allergiesdocumented as of [...] mRNA, LNP-s, No Pre serve, 2-Dose Series (Migoa) 03/08/2021,02/15/2021 HepA Inact/HepB Recomb>=18yrs old 12/04/2019,04/2019,05/20/2019 11/19/2019 PPD 06/18/2017, 3,01/09/2012,0306/2011 Pneumococcal Conjugate Vacc, 13 Valent (Prevnar) 05/01/2017 Pneumococcal Polysaccharide PPV23 (Pneumovax) 08/28/2022,10/25/2015,07/14/2012 Season Influenza, Quad, PF, Adjuvanted, 65+ Yrs, IM (FLUAD) 10/07/2020(Deferred: Patient Refused - pt says he already had his shot last month at [facility] Handy Lyons and Mckinley Cobian made aware) [...] encounter Miscellaneous Notes * Telephone Encounter - Abdoul Oliva RN - 01/24/2024 4:21 PM EST Scheduling- Please cancel patients Venofer appointment for 01/27- this will need to be rescheduled sometime later in the week per patients preference/schedule. Thank you. * Telephone Encounter - Abdoul Oliva RN - 01/24/2024 3:57 PM EST Per JEFF Williamson, pt hemoglobin now 7.4. Call patient and inform he needs transfusion on Saturday or he can go to the ER to have transfusion. Called patient. He would like to be scheduled at [facility] for transfusion. Advised that if he experiences shortness of breath, weakness/falls, he needs to go to the ER over the weekend for transfusion. Ptverbalized understanding. Called [facility]- they are able to get him in Saturday01/27/24 @ 10AM. Confirmed with [place]yenne with [facility]. Called [facility] to inform and they will have a unit ready for him Saturday. Faxed orders: Consent, T&S, Transfusion order to [facility] and [facility]. Called Central Scheduling, spoke to Kasandra. Pt is scheduled. Called patients son Alex contreras, he is aware of the appointment date and time. Aware that patient won't come for Venofer on Saturday, we will call to reschedule. documented in this encounter Plan of Treatment Upcoming Encounters Date Type Department Care Team (Latest Contact Info) Description 01/27/2024 10:00 AM EST Hem/Onc Treatment Hematology/Oncolo gy Treatment, [place] [address] [place] [address] 01/30/2024 12:42 PM EST Hospital Encounter OR [facility], Operating Room, [facility] - 4th Floor [address] [place] [address] Frank Peraza MD [address] [place] [address] [place] [address] 01/30/2024 12:42 PM EST - 01/30/2024 1:44 PM EST Surgery OR [facility], Operating Room, [facility] - 4th Floor [address] [place] [address] Frank Peraza MD [address] [place] [address] [place] [address] CYSTOURETHROSCOPY WITH FULGURATION MEDIUM BLADDER TUMOR 02/04/2024 8:40 AM EST Laboratory Lab Mobile Phlebotomy [facility] [address] [place] [address] [facility], [facility] Mobile Home Draw [address] [place] [address] 02/07/2024 11:00 AM EST Telemedicine [facility], [place] [address] [place] [address] Aidee Miller PA-C [address] [place] [address] Kriss Mays, [facility] Valet Attendant [address] [place] [address] 02/14/2024 2:45 PM EDT Office Visit Urology Lynnette Fitzpatrick [address] [place] [address] Frank Peraza MD [address] [place] [address] [place] [address] 02/18/2024 8:40 AM EDT Laboratory Lab Mobile Phlebotomy [facility] [address] [place] [address] [facility], [facility] Mobile Home Draw [address] [place] [address] 03/03/2024 8:40 AM EDT Laboratory Lab Mobile Phlebotomy [facility] [address] [place] [address] Gm, [facility] Mobile Home Draw [address] [place] [address] 03/13/2024 2:00 PM EDT Office Visit Dermatology [facility] 200 [facility] [place] [address] Francisco Watson MD 200 [place] [address] 03/17/2024 8:40 AM EDT Laboratory Lab Mobile Phlebotomy [facility] [address] [place] [address] [facility], [facility] Mobile Home Draw [address] [place] [address] 03/24/2024 2:30 PM EDT Office Visit Hematology/Oncolo gy [facility] 200 [facility] [place] [address] Ayaka Tatum CRNP 400 [place] [address] 03/30/2024 12:00 PM EDT [facility] Visit [facility] 132 [facility] [place] [address] Kristen Bah DO [address] [place] [address] 03/31/2024 8:40 AM EDT Laboratory Lab Mobile Phlebotomy [facility] [address] [place] [address] [facility], [facility] Mobile Home Draw [address] [place] [address] 04/07/2024 10:00 AM EDT Office Visit Gastroenterology, [facility] [address] [place] [address] Lamar Tatum CRNP [address] [place] [address] 04/14/2024 8:40 AM EDT Laboratory Lab Mobile Phlebotomy [facility] [address] [place] [address] Gmc, [facility] Mobile Home Draw [address] [place] [address] 04/28/2024 8:40 AM EDT Laboratory Lab Mobile Phlebotomy [facility] [address] [place] [address] Gmc, [facility] Mobile Home Draw [address] [place] [address] 05/12/2024 8:40 AM EDT Laboratory Lab Mobile Phlebotomy [facility] [address] [place] [address] Gmc, [facility] Mobile Home Draw [address] [place] [address] 05/26/2024 8:40 AM EDT Laboratory Lab Mobile Phlebotomy C [address] [place] [address] G[facility], [facility] Mobile Home Draw [address] [place] [address] 06/09/2024 8:40 AM EDT Laboratory Lab Mobile Phlebot[facility] [address] [place] [address] [facility], [facility] Mobile Home Draw [address] [place] [address] 06/23/2024 8:40 AM EDT Laboratory Lab Mobile Phlebot[facility] [address] [place] [address] Gmc, [facility] Mobile Home Draw [address] [place] [address] 07/07/2024 8:40 AM EDT Laboratory Lab Mobile Phlebot[facility] [address] [place] [address] [facility]mc, [facility] Mobile Home Draw [address] [place] [address] 07/21/2024 8:40 AM EDT Laboratory Lab Mobile Phlebotomy [facility] [address] [place] [address] Gmc, [facility] Mobile Home Draw [address] [place] [address] 08/04/2024 8:40 AM EDT Laboratory Lab Mobile Phlebot[facility] [address] [place] [address] Gmc, [facility] Mobile Home Draw [address] [place] [address] 08/18/2024 8:40 AM EDT Laboratory Lab Mobile Phlebot[facility] [address] [place] [address] [facility], [facility] Mobile Home Draw [address] [place] [address] 08/20/2024 10:15 AM EDT Office Visit Ophthalmology, [address] [place] [address] Cody Gonzalez, [facility] [place] [address] 09/01/2024 8:40 AM EDT Laboratory Lab Mobile Phlebotomy [facility] [address] [place] [address] [facility], [facility] Mobile Home Draw [address] [place] [address] 09/15/2024 8:40 AM EDT Laboratory Lab Mobile Phlebotomy [facility] [address] [place] [address] [facility], [facility] Mobile Home Draw [address] [place] [address] Scheduled Orders Name Type Priority Associated Diagnoses Orde r Schedule TYPE AND SCREEN Lab Routine Iron deficiency anemia, unspecified iron deficiency anemia type Expected: 01/27/2024, Expires: 02/21/2025 Scheduled Procedures Name Priority Associated Diagnoses Date/Ti oh CYSTOURETHROSCOPY WITH FULGU RATION MEDIUM BLADDER TUMOR [...] Additional history exists CKD PHOS USE SMARTSET 26447 01/28/202401/03, 07/26/2022, 12/05/2021, Additional history exists Diabetic Foot Exam 03/06/2024 03/06/2023, 0 01/03/2022, 03/02/2021, Additional history exists HbA1c 05/28/2024 11/27/2023, 05/03, 01/28/2023, Additional history exists Albumin/Creatinine Ratio 07/12/2024 023, 10/01/2022, 09/11/2021, Additional history exists GFR 07/17/2024 01/17/2024, 12/03, 11/16/2023, Additional history exists COLONOSCOPY-ANNUAL AGES 18-100 08/09/2024 08/09/2023, 11/07/2022, 11/07/2022, Additional history exists CKD HGB USE SMARTSET 15529 01/24/202501/24, 01/24/2024, 01/21/2024, Additional history exists Lipid [...] this encounter Medical Devices Implanted Type Area Computer Operator Device Identifier Shelf Expiration Date Model / Serial / Lot Mary Annon Iol Aspheric Hydrophobic Acrylic Iol Implanted:Qty: 1 on 04/23/2023 by Cody Gonzalez DO at OR [facility] Lens Left: Eye 11/12/2025 [id number] / [id number] / Viatorr Tips Endoprosthesis 8-10 Mm X 8cm / 2cm Implanted:Qty: 1 on 10/07/2020 by Go Alvarado MD at [facility] Right: Abdomen 03/03/2023 [id number] / / [id number] Description:Viatorr TIPS End oprosthesis 8-10 mm x 8cm / 2cm, Manufactored by [employer] Syr Pf 2ml Embospheres 100-300 - [id number] Implanted:Qty: 1 on 04/18/2021 by Kevin Lim DO at OR [facility] Left: Abdomen [employer] [id number] 11/25/2023 S220GH / / [id number] Lipiodol Injection - [id number] Implanted:Qty: 1 on 03/28/2022 at [facility] [employer] 03/01/2023 [id number] 01-2 / / [id number] Syr Pf 2ml Embospheres 100-300 - [id number] Implanted:Qty: 1 on 03/28/2022 at [facility] [employer] [id number] 08/31/2024 S220GH / / [id number] -[id number] Clareon Iol Aspheric Hydrophobic Acrylic Iol Implanted:Qty: 1 on 04/02/2023 by Cody Gonzalez DO at OR [facility] Right: Eye JAZMIN 11/12/2025 CNA0T0 / [id number] / documented as of this encounter Visit Diagnoses Diagnosis Hematuria, gross- Primary Gross hematuria Prostate cancer (HCC) Malignant neoplasm of prostate Abnormal cystoscopy Other nonspecific abnormal finding Iron deficiency anemia, unspecified iron deficiency anemia type- Primary Hematuria, gross Gross hematuria Abnormal cystoscopy Other nonspecific abnormal finding documented in this encounter Advance Directives Documents on File Type Date Recorded 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 No Full Code 07/22/2014 9:56 PM 07/24/2014 8:18 PM This order reflects the patients wishes and were consensually agreed upon. Question Answer Comments Discussion of Advance Directives occurred with: Patient Does the patient have a Living Will? No Does the patient have Health Care Power of Ambulance Attendant? No Care Teams Stock Plan Administrator Relationship Specialty Start Date End Date Francisco Cisse MD [address] [place] [address] PCP - General Internal Medicine 09/04/21 documented as of this encounter
--- OUTSIDE RECORDS SUMMARY | 2024-01-25 17:07 | External Medical Summary ---
Author Name Unknown Address Unknown Organization K0G:[facility] [address] [place] [address] Laboratory Report Ordering Provider Test Date Status CHELSEY ADAMS 01/24/2024 15:05:18 Final Observation Date Value Abnormality Reference (Units ) Status SYNC LEUKOCYTES IN BLOOD BY AUTOMATED COUNT 01/24/2024 15:05:18 3.63 Below low normal 4.00-10.80 (K/uL) Final Segs 01/24/2024 15:05:18 62.5 40.0-75.0 (%) Final Lymphs % 01/24/2024 15:05:18 24.0 18.0-42.0 (%) Final Monos 01/24/2024 15:05:18 8.3 1.0-11.0 (%) Final Eosinophils 01/24/2024 15:05:18 4.4 0.0-6.0 (%) Final Basos 01/24/2024 15:05:18 0.8 0.0-2.0 (%) Final Absolute Segs 01/24/2024 15:05:18 2.27 1.80-7.70 (K/uL) Final Lymphs, absolute 01/24/2024 15:05:18 0.87 Below low normal 1.00-4.80 (K/ul) Final Monos, Abs 01/24/2024 15:05:18 0.30 0.00-1.10 (K/uL) Final Eos, Abs 01/24/2024 15:05:18 0.16 0.00-0.70 (K/uL) Final Basos, Abs 01/24/2024 15:05:18 0.03 0.00-0.20 (K/uL) Final Performing Location [facility] [place] [address]
--- OUTSIDE RECORDS SUMMARY | 2024-01-25 17:07 | External Medical Summary | Summary of Care ---
Author Name Unknown Organization [facility] Address [address] [place] [address] Phone [phone] Care Team Providers Care Geophysical Manager Name Role Phone Francisco Cisse MD Primary Care Provider + Reason for Visit * Reason Onset Date Comments Appointment 01/23/2024 IR Encounter Details Date Type Department Care Team (Late st Contact Info) Description 01/23/2024 Telephone Interventional Radiology [facility] 1st Floor [address] [place] [address] ADDRESS AVAILABLE Appointment (IR) Allergies No known active allergiesdocumented as of this encounter (statuses as of 01/23/2024) Medications Medication Sig Dispensed Refills Start Date End Date Status Tylenol 325 MG Oral Capsule (Acetaminophen) Take 650 mg by mouth every 8 hours as needed for Pain (fever). 0 Active kooabaTouch Verio In Vitro Strip (Glucose Blood)Indications:Ty pe 2 diabetes mellitus with hemoglobin A1c goal of less than 7.0% ([facility]) Use to test blood sugars [...] Active Additional Information Patient not taking.Reported on 01/08/2024 Lactulose 10 GM Oral Packet (Kristalose)Indicati ons:Cirrhosis [...] the morning. 90 Capsule 1 01/02/2024 Active Hospital, Clinic, or Other Facility Administered [...] as of this encounter (statuses as of 01/23/2024) Active Problems Problem Noted Date Diagnosed Date [...] as of this encounter (statuses as of 01/23/2024) Resolved Problems Problem Noted Date Diagnosed Date [...] as of this encounter (statuses as of 01/23/2024) Immunizations Name Administration Dates Next Due COVID-19 mRNA, LNP-s, No Pre serve, 2-Dose Series (HeadMix) 03/08/2021,02/15/2021 HepA Inact/HepB Recomb>=18yrs old 12/04/2019,04/2019,05/20/2019 11/19/2019 PPD 06/18/2017, 3,01/09/2012,0306/2011 Pneumococcal Conjugate Vacc, 13 Valent (Prevnar) 05/01/2017 Pneumococcal Polysaccharide PPV23 (Pneumovax) 08/28/2022,10/25/2015,07/14/2012 Season Influenza, Quad, PF, Adjuvanted, 65+ Yrs, IM (FLUAD) 10/07/2020(Deferred: Patient Refused - pt says he already had his shot last month at [facility] Handy Lyons and Mckinley Cobian made [...] AM EST Hem/Onc Treatment Hematology/Oncolo gy Treatment, [place] [address] [place] [address] 01/30/2024 12:42 PM EST Hospital Encounter OR [facility], Operating Room, [facility] - 4th Floor [address] [place] [address] Frank Peraza MD [address] [place] [address] 01/30/2024 12:42 PM EST - 01/30/2024 1:44 PM EST Surgery [facility], Operating Room, [facility] - 4th Floor [address] [place] [address] Frank Peraza MD [address] [place] [address] CYSTOURETHROSCOPY WITH FULGURATION MEDIUM BLADDER TUMOR 02/04/2024 8:40 AM EST Laboratory Lab Mobile Phlebotomy [facility] [address] [place] [address] [facility] Mobile Home Draw [address] [place] [address] 02/07/2024 11:00 AM EST Telemedicine [facility], [place] [address] [place] [address] Aidee Miller PA-C [address] [place] [address] Kriss Mays, [facility] Business Administrator [address] [place] [address] 02/14/2024 2:45 PM EDT Office Visit Urology Lynnette Fitzpatrick [address] [place] [address] Frank Peraza MD [address] [place] [address] 02/18/2024 8:40 AM EDT Laboratory Lab Mobile Phlebotomy [facility] [address] [place] [address] Gmc, [facility] Mobile Home Draw [address] [place] [address] 03/03/2024 8:40 AM EDT Laboratory Lab Mobile Phlebotomy [facility] [address] [place] [address] Gmc, [facility] Mobile Home Draw [address] [place] [address] 03/13/2024 2:00 PM EDT Office Visit Dermatology [facility] [address] [place] [address] Francisco Watson MD 200 [facility] [place] [address] 03/17/2024 8:40 AM EDT Laboratory Lab Mobile Phlebotomy [facility] [address] [place] [address] Gmc, [facility] Mobile Home Draw [address] [place] [address] 03/24/2024 2:30 PM EDT Office Visit Hematology/Oncolo gy [facility] [place] [address] [place] [place] [address] Ayaka Tatum CRNP [address] [place] [address] 03/30/2024 12:00 PM EDT Office Visit Family Practice [facility] [address] [place] [address] Kristen Vences DO [address] [place] [address] 03/31/2024 8:40 AM EDT Laboratory Lab Mobile Phlebotomy [facility] [address] [place] [address] Gmc, Gml Mobile Home Draw [address] [place] [address] 04/07/2024 10:00 AM EDT Office Visit Gastroenterology, [facility] [address] [place] [address] Lamar Tatum CRNP [address] [place] [address] 04/14/2024 8:40 AM EDT Laboratory Lab Mobile Phlebotomy [facility] [address] [place] [address] Gmc, [facility] Mobile Home Draw [address] [place] [address] 04/28/2024 8:40 AM EDT Laboratory Lab Mobile Phlebotomy [facility] [address] [place] [address] Gmc, [facility] Mobile Home Draw [address] [place] [address] 05/12/2024 8:40 AM EDT Laboratory Lab Mobile Phlebotomy C [address] [place] [address] Gmc, [facility] Mobile Home Draw [address] [place] [address] 05/26/2024 8:40 AM EDT Laboratory Lab Mobile Phlebotomy [facility] [address] [place] [address] Gmc, [facility] Mobile Home Draw [address] [place] [address] 06/09/2024 8:40 AM EDT Laboratory Lab Mobile Phlebot[facility] [address] [place] [address] Gmc, [facility] Mobile Home Draw [address] [place] [address] 06/23/2024 8:40 AM EDT Laboratory Lab Mobile Phlebot[facility] [address] [place] [address] Gmc, [facility] Mobile Home Draw [address] [place] [address] 07/07/2024 8:40 AM EDT Laboratory Lab Mobile Phlebot[facility] [address] [place] [address] Gmc, [facility] Mobile Home Draw [address] [place] [address] 07/21/2024 8:40 AM EDT Laboratory Lab Mobile Phlebotomy [facility] [address] [place] [address] Gmc, [facility] Mobile Home Draw [address] [place] [address] 08/04/2024 8:40 AM EDT Laboratory Lab Mobile Phlebot[facility] [address] [place] [address] Gmc, [facility] Mobile Home Draw [address] [place] [address] 08/18/2024 8:40 AM EDT Laboratory Lab Mobile Phlebot[facility] [address] [place] [address] Gmc, Gml Mobile Home Draw [address] [place] [address] 08/20/2024 10:15 AM EDT Office Visit Ophthalmology, [facility] [address] [place] [address] Cody Gonzalez, DO [address] [place] [address] 09/01/2024 8:40 AM EDT Laboratory Lab Mobile Phlebotomy [facility] [address] [place] [address] [facility] Mobile Home Draw [address] [place] [address] 09/15/2024 8:40 AM EDT Laboratory Lab Mobile Phlebotomy [facility] [address] [place] [address] [facility] Mobile Home Draw [address] [place] [address] Scheduled Procedures Name Priority Associated Diagnoses Date/Ti [...] Additional history exists CKD PHOS USE SMARTSET 34230 01/28/202401/03, 07/26/2022, 12/05/2021, Additional history exists Diabetic Foot Exam 03/06/2024 03/06/2023, 0 01/03/2022, 03/02/2021, Additional history exists HbA1c 05/28/2024 11/27/2023, 05/03, 01/28/2023, Additional history exists Albumin/Creatinine Ratio 07/12/2024 023, 10/01/2022, 09/11/2021, Additional history exists GFR 07/17/2024 01/17/2024, 12/03, 11/16/2023, Additional history exists COLONOSCOPY-ANNUAL AGES 18-100 08/09/2024 08/09/2023, 11/07/2022, 11/07/2022, Additional history exists CKD HGB USE SMARTSET 04041 01/21/202501/21, 01/21/2024, 01/07/2024, Additional history exists Lipid Panel 01/28/2028 01/28/2023, [...] encounter Medical Devices Implanted Type Area Hairspring Ii Inspector Device Identifier Shelf Expiration Date Model / Serial / Lot Clareon Iol Aspheric Hydrophobic Acrylic Iol Implanted:Qty: 1 on 04/23/2023 by Cody Gonzalez DO at OR [facility] Lens Left: Eye 11/12/2025 CNA0T0 / [id number] / Viatorr Tips Endoprosthesis 8-10 Mm X 8cm / 2cm Implanted:Qty: 1 on 10/07/2020 by Go Alvarado MD at [facility] Right: Abdomen 03/03/2023 [id number] / / [id number] Description:Viatorr TIPS End oprosthesis 8-10 mm x 8cm / 2cm, Manufactored by [employer] Syr Pf 2ml Embospheres 100-300 - [id number] Implanted:Qty: 1 on 04/18/2021 by Kevin Lim DO at OR [facility] Left: Abdomen [employer] [id number] 11/25/2023 S220GH / / [id number] Lipiodol Injection - [id number] Implanted:Qty: 1 on 03/28/2022 at [facility] [employer] 03/01/2023 [id number] 01-2 / / [id number] Syr Pf 2ml Embospheres 100-300 - [id number] Implanted:Qty: 1 on 03/28/2022 at [facility] [employer] [id number] 08/31/2024 S220GH / / [id number] -[id number] Clareon Iol Aspheric Hydrophobic Acrylic Iol Implanted:Qty: 1 on 04/02/2023 by Cody Gonzalez DO at OR [facility] Right: Eye JAZMIN 11/12/2025 CNA0T0 / [id number] / documented as of this encounter Advance Directives Documents on File Type Date Recorded 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 No Full Code 07/22/2014 9:56 PM 07/24/2014 8:18 PM This order reflects the patients wishes and were consensually agreed upon. Question Answer Comments Discussion of Advance Directives occurred with: Patient Does the patient have a Living Will? No Does the patient have Health Care Power of Purchasing Expeditor? No Care Teams Geophysical Manager Relationship Specialty Start Date End Date Francisco Cisse MD [address] [place] [address] PCP - General Internal Medicine 09/04/21 documented as of this encounter
--- OUTSIDE RECORDS SUMMARY | 2024-01-25 17:07 | External Medical Summary | Summary of Care ---
Author Name Unknown Organization [facility] Address [address] [facility] [place] [address] Phone [phone] Care Team Providers Care Real Estate Agency Licensee Name Role Phone Francisco Cisse MD Primary Care Provider + Reason for Visit * Reason Onset Date Comments Abnormal Lab Results 01/09/2024 CBCD Encounter Details Date Type Department Care Team (Late st Contact Info) Description 01/09/2024 Telephone Hematology/Oncology [facility] [place] [address] [facility] [phone] Zulay Barbosa CRNP 400 [facility] [place] [address] Abnormal Lab Results (CBCD) Allergies No known active allergiesdocumented as of [...] mRNA, LNP-s, No Pre serve, 2-Dose Series (Mobile Event Guide) 03/08/2021,02/15/2021 HepA Inact/HepB Recomb>=18yrs old 12/04/2019,04/2019,05/20/2019 11/19/2019 PPD 06/18/2017, 3,01/09/2012,03/06/2011 Pneumococcal Conjugate Vacc, 13 Valent (Prevnar) 05/01/2017 Pneumococcal Polysaccharide PPV23 (Pneumovax) 08/28/2022,10/25/2015,07/14/2012 Season Influenza, Quad, PF, Adjuvanted, 65+ Yrs, IM (FLUAD) 10/07/2020(Deferred: Patient Refused - pt says he already had his shot last month at [facility]y Lyons and Mckinley Cobian [...] encounter Miscellaneous Notes * Telephone Encounter - Kylie Alexander LPN - 01/23/2024 8:16 AM EST Called and spoke with Luis agreed to be scheduled 01/27 at 10am due to needing public transportation has to be them morning * Telephone Encounter - Kriss Zamudio RN - 01/22/2024 9:38 AM EST My G sent to patient to schedule appointment. * Telephone Encounter - Josephine Murphy RN - 01/21/2024 3:20 PM EST Referral entered. Scheduling: please call patient to schedule 2 hour appt "monoferric" (Zulay). Thanks! * Telephone Encounter - Josephine Murphy RN - 01/20/2024 9:35 AM EST Called patient, he verbalized understanding. [place] plan built for monoferric and routed for signature. Waiting for auth. * Addendum Note - Zulay Barbosa CRNP - 01/19/2024 6:45 PM ESTAddended by: ZULAY BARBOSA on: 01/19/2024 06:45 PM Modules accepted: Orders * Telephone Encounter - Zulay Barbosa CRNP - 01/19/2024 6:43 PM EST Ferritin has declined to 38. Order placed for IV Monoferric 1,000 mg as a single dose. Scheduled for repeat CBCd per GML on 01/21. * Telephone Encounter - Abdoul Oliva RN - 01/17/2024 3:44 PM EST Reviewed to see if patient went to lab today. Labs Iron, Ferritin, CMP, AFP, and PSA done, no CBCD completed. Will review labs that are completed. Pt has mobile lab appointment 01/21 for CBCD. * Telephone Encounter - Josephine Murphy RN - 01/16/2024 10:27 AM EST Called patient. He states that he is planning on going to tomorrow afternoon- his son works until noon so will bring him after work. Advised him that if he goes tomorrow afternoon, if a transfusion is needed we will need to send him to the ER. Patient verbalized understanding. * Telephone Encounter - Abdoul Oliva RN - 01/09/2024 8:19 AM EST Called patient and informed of Hgb 7.8. pt aware to repeat labs : CBCD, Ferritin, Iron in 1 week. Pt did not want to make an appointment with the lab. * Telephone Encounter - Abdoul lOiva RN - 01/09/2024 8:12 AM EST ----- Message from JEFF Brandt sent at 01/08/2024 6:41 PM EST ----- Hgb has declined to 7.8. Please ask patient to repeat in one week along with ferritin and iron screen. documented in this encounter Plan of Treatment Upcoming Encounters Date Type Department Care Team (Latest Contact Info) Description 01/27/2024 10:00 AM EST Hem/Onc Treatment Hematology/Oncolo gy Treatment, [place] [address] [place] [id number] 01/30/2024 12:42 PM EST Hospital Encounter OR [facility], Operating Room, [facility] - 4th Floor [address] [facility] [place] [address] Frank Peraza MD 27 [facility] [address] [place] [address] 01/30/2024 12:42 PM EST - 01/30/2024 1:44 PM EST Surgery OR [facility], Operating Room, [facility] Floor [address] [facility] [place] [address] Frank Peraza MD [address] [place] [address] [place] [address] CYSTOURETHROSCOPY WITH FULGURATION MEDIUM BLADDER TUMOR 02/04/2024 8:40 AM EST Laboratory Lab Mobile [facility]lebotomy [facility] [address] [place] [address] [place], [facility] Mobile Home Draw [address] [place] [address] 02/07/2024 11:00 AM EST Telemedicine [facility] [place], [address] [address] Aidee Miller PA-Ashley [address] [place] [address] Kriss Mays, Community Health Housing Officer [address] [place] [address] 02/14/2024 2:45 PM EDT Office Visit Urology [facility] [place] [address] [place] [address] [place] [address] Frank Peraza MD [address] [place] [address] [place] [address] 02/18/2024 8:40 AM EDT Laboratory Lab Mobile [facility]lebotomy [facility] [address] [place] [address] [facility], [facility] Mobile Home Draw [address] [place] [address] 03/03/2024 8:40 AM EDT Laboratory Lab Mobile Phlebotomy [facility] [address] [place] [address] [facility], [facility] Mobile Home Draw [address] [place] [address] 03/13/2024 2:00 PM EDT Office Visit Dermatology [facility] [address] [place] [address] Francisco Watson MD [address] [place] [address] 03/17/2024 8:40 AM EDT Laboratory Lab Mobile Phlebotomy [facility] [address] [place] [address] [facility], [facility] Mobile Home Draw [address] [place] [address] 03/24/2024 2:30 PM EDT Office Visit Hematology/Oncolo gy [facility] [address] [place] [place] [address] Zulay Barbosa CRNP [address] [place] [address] 03/30/2024 12:00 PM EDT Office Visit Family Practice [facility] [address] [place] [address] Kristen Vences DO [address] [place] [address] 03/31/2024 8:40 AM EDT Laboratory Lab Mobile Phlebotomy [facility] [address] [place] [address] [place], [facility] Mobile Home Draw [address] [place] [address] 04/07/2024 10:00 AM EDT Office Visit Gastroenterology, [facility] [address] [place] [address] Lamar Barbosa CRNP [address] [place] [address] 04/14/2024 8:40 AM EDT Laboratory Lab Mobile Phlebotomy [facility] [address] [place] [address] [facility], [facility] Mobile Home Draw [address] [place] [address] 04/28/2024 8:40 AM EDT Laboratory Lab Mobile Phlebotomy [facility] [address] [place] [address] [facility], [facility] Mobile Home Draw [address] [place] [address] 05/12/2024 8:40 AM EDT Laboratory Lab Mobile Phlebotomy [facility] [address] [place] [address] [facility], [facility] Mobile Home Draw [address] [place] [address] 05/26/2024 8:40 AM EDT Laboratory Lab Mobile Phlebotomy [facility] [address] [place] [address] [facility], [facility] Mobile Home Draw [address] [place] [address] 06/09/2024 8:40 AM EDT Laboratory Lab Mobile Phlebotomy [facility] [address] [place] [address] [facility], [facility] Mobile Home Draw [address] [place] [address] 06/23/2024 8:40 AM EDT Laboratory Lab Mobile Phlebotomy [facility] [address] [place] [address] [facility], [facility] Mobile Home Draw [address] [place] [address] 07/07/2024 8:40 AM EDT Laboratory Lab Mobile Phlebotomy [facility] [address] [place] [address] [facility] Mobile Home Draw [address] [place] [address] 07/21/2024 8:40 AM EDT Laboratory Lab Mobile Phlebotomy [facility] [address] [place] [address] [facility], [facility] Mobile Home Draw [address] [place] [address] 08/04/2024 8:40 AM EDT Laboratory Lab Mobile Phlebotomy [facility] [address] [place] [address] [facility], [facility] Mobile Home Draw [address] [place] [address] 08/18/2024 8:40 AM EDT Laboratory Lab Mobile Phlebotomy [facility] [address] [place] [address] [place], [facility] Mobile Home Draw [address] [place] [address] 08/20/2024 10:15 AM EDT Office Visit Ophthalmology, [facility] [address] [place] [address] Cody Gonzalez, [address] [place] [address] 09/01/2024 8:40 AM EDT Laboratory Lab Mobile Phlebotomy [facility] [address] [place] [address] [place], [facility] Mobile Home Draw [address] [place] [address] 09/15/2024 8:40 AM EDT Laboratory Lab Mobile Phlebotomy [facility] [address] [place] [address] [place], [facility] Mobile Home Draw [address] [place] [address] Scheduled Procedures Name Priority Associated Diagnoses Date/Ti [...] Additional history exists CKD PHOS USE SMARTSET 46649 01/28/202401/03, 07/26/2022, 12/05/2021, Additional history exists Diabetic Foot Exam 03/06/2024 03/06/2023, 0 01/03/2022, 03/02/2021, Additional history exists HbA1c 05/28/2024 11/27/2023, 05/03, 01/28/2023, Additional history exists Albumin/Creatinine Ratio 07/12/2024 023, 10/01/2022, 09/11/2021, Additional history exists GFR 07/17/2024 01/17/2024, 12/03, 11/16/2023, Additional history exists COLONOSCOPY-ANNUAL AGES 18-100 08/09/2024 08/09/2023, 11/07/2022, 11/07/2022, Additional history exists CKD HGB USE SMARTSET 60989 01/21/202501/21, 01/21/2024, 01/07/2024, Additional history exists Lipid [...] this encounter Medical Devices Implanted Type Area Power Cleaner Operator Device Identifier Shelf Expiration Date Model / Serial / Lot Clareon Iol Aspheric Hydrophobic Acrylic Iol Implanted:Qty: 1 on 04/23/2023 by Cody Gonzalez DO at OR [facility] Lens Left: Eye 11/12/2025 [id number] / [id number] / Viatorr Tips Endoprosthesis 8-10 Mm X 8cm / 2cm Implanted:Qty: 1 on 10/07/2020 by Go Alvarado MD at [facility] Right: Abdomen 03/03/2023 [id number] / / [id number] Description:Viatorr TIPS End oprosthesis 8-10 mm x 8cm / 2cm, Manufactored by [employer] Syr Pf 2ml Embospheres 100-300 - [id number] Implanted:Qty: 1 on 04/18/2021 by Kevin Lim DO at OR [facility] Left: Abdomen [employer] [id number] 11/25/2023 S220GH / / [id number] -[id number] Lipiodol Injection - [id number] Implanted:Qty: 1 on 03/28/2022 at [facility] [employer] 03/01/2023 [id number] 01-2 / / [id number] Syr Pf 2ml Embospheres 100-300 - [id number] Implanted:Qty: 1 on 03/28/2022 at [facility] [employer] [id number] 08/31/2024 S220GH / / [id number] -[id number] Clareon Iol Aspheric Hydrophobic Acrylic Iol Implanted:Qty: 1 on 04/02/2023 by Cody Gonzalez DO at OR [facility] Right: Eye [employer] 11/12/2025 CNA0T0 / [id number] / documented as of this encounter Visit Diagnoses Diagnosis Hematuria, gross- Primary Gross hematuria Prostate cancer (HCC) Malignant neoplasm of prostate Abnormal cystoscopy Other nonspecific abnormal finding Iron deficiency anemia, unspecified iron deficiency anemia type- Primary GAVE (gastric antral vascular ectasia) Angiodysplasia of stomach and duodenum (without mention of hemorrhage) Hematuria, gross Gross hematuria Abnormal cystoscopy Other nonspecific abnormal finding documented in this encounter Advance Directives Documents on File Type Date Recorded Patient Unhairing Inspector Expl anation Advance Directives and Living Will 12/11/2022 ADVANCE DIRECTIVE / LIVING WILL LIVING WILL Power of Handbag Operator 12/11/2022 POWER OF A TTORNEY Latest [...] the patient have Health Care Power of Handbag Operator? No Full Code 07/22/2014 9:56 PM 07/24/2014 8:18 PM This order reflects the patients wishes and were consensually agreed upon. Question Answer Comments Discussion of Advance Directives occurred with: Patient Does the patient have a Living Will? No Does the patient have Health Care Power of Handbag Operator? No Care Teams Real Estate Agency Licensee Relationship Specialty Start Date End Date Francisco Cisse MD [address] [place] [address] PCP - General Internal Medicine 09/04/21 documented as of this encounter
--- OUTSIDE RECORDS SUMMARY | 2024-01-25 17:07 | External Medical Summary ---
Author Name Unknown Address Unknown Organization [id number]:[facility] [address] [place] [address] Laboratory Report Ordering Provider Test Date Status CHELSEY ADAMS 01/24/2024 15:05:18 Final Observation Date Value Abnormality Reference (Units ) Status Bilirubin, Direct 01/24/2024 15:05:18 0.6 Above high normal 0.0-0.3 (mg/dL) Final Performing Location LABORATORY C - [address] [place] [address]
--- OUTSIDE RECORDS SUMMARY | 2024-01-25 17:07 | External Medical Summary ---
Author Name Unknown Address Unknown Organization [id number]:[facility] [address] [place] [address] Laboratory Report Ordering Provider Test Date Status CHELSEY ADAMS 01/24/2024 15:05:18 Final Observation Date Value Abnormality Reference (Units ) Status WBC, Total 01/24/2024 15:05:18 3.63 Below low normal 4. 00-10.80 (K/uL) Final RBC 01/24/2024 15:05:18 2.38 4.50-5.25 (M/uL) Final Hemoglobin 01/24/2024 15:05:18 7.4 Below low normal 14 .0-16.8 (g/dL) Final HCT 01/24/2024 15:05:18 23.6 Below low normal 40. 0-48.4 (%) Final MCV 01/24/2024 15:05:18 99.2 82.0-99.5 (fL) Final MCH 01/24/2024 15:05:18 31.1 27.0-34.0 (pg) Final MCHC 01/24/2024 15:05:18 31.4 32.0-36.0 (g/dL) Final RDW 01/24/2024 15:05:18 18.7 11.5-15.5 (%) Final Platelets 01/24/2024 15:05:18 100 Below low normal 140 -400 (K/uL) Final MPV 01/24/2024 15:05:18 12.6 6.6-11.1 ( fL) Final Performing Location [facility]ORY [facility] [address] [place] [address]
--- OUTSIDE RECORDS SUMMARY | 2024-01-25 17:07 | External Medical Summary | Summary of Care ---
Author Name Unknown Organization [facility] Address 100 [facility] [place] [address] Phone [phone] Care Team Providers Care Pass Worker Name Role Phone Francisco Cisse MD Primary Care Provider + Reason for Visit * Reason Onset Date Comments Abnormal Lab Results 01/09/2024 CBCD Encounter Details Date Type Department Care Team (Late st Contact Info) Description 01/09/2024 Telephone Hematology/Oncology [facility] [place] 200 [facility] [address] Zulay Barbosa CRNP 400 [facility] [place] [address] Abnormal Lab Results (CBCD) Allergies No known active allergiesdocumented as of this encounter (statuses as of 01/22/2024) Medications Medication Sig Dispensed Refills Start Date End Date Status Tylenol 325 MG Oral Capsule (Acetaminophen) Take 650 mg by mouth every 8 hours as needed for Pain (fever). 0 Active OneTouch Verio In Vitro Strip (Glucose Blood)Indications:Ty pe 2 diabetes mellitus with hemoglobin A1c goal of less than 7.0% ([facility]) Use to test blood sugars [...] as of this encounter (statuses as of 01/22/2024) Active Problems Problem Noted Date Diagnosed Date [...] as of this encounter (statuses as of 01/22/2024) Resolved Problems Problem Noted Date Diagnosed Date [...] as of this encounter (statuses as of 01/22/2024) Immunizations Name Administration Dates Next Due COVID-19 mRNA, LNP-s, No Pre serve, 2-Dose Series (Right On Interactive) 03/08/2021,02/15/2021 HepA Inact/HepB Recomb>=18yrs old 12/04/2019,04/2019,05/20/2019 11/19/2019 PPD 06/18/2017, 3,01/09/2012,03/06/2011 Pneumococcal Conjugate Vacc, 13 Valent (Prevnar) 05/01/2017 Pneumococcal Polysaccharide PPV23 (Pneumovax) 08/28/2022,10/25/2015,07/14/2012 Season Influenza, Quad, PF, Adjuvanted, 65+ Yrs, IM (FLUAD) 10/07/2020(Deferred: Patient Refused - pt says he already had his shot last month at [facility] Lyons and Mckinley Cobian [...] encounter Miscellaneous Notes * Telephone Encounter - Kriss Zamudio RN - 01/22/2024 9:38 AM EST My G sent to patient to schedule appointment. * Telephone Encounter - Josephine Murphy RN - 01/21/2024 3:20 PM EST Referral entered. Scheduling: please call patient to schedule 2 hour appt "monoferric" (Zulay). Thanks! * Telephone Encounter - Josephine Murphy RN - 01/20/2024 9:35 AM EST Called patient, he verbalized understanding. [place] plan built for monoferric and routed for [...] the lab. * Telephone Encounter - Abdoul Oliva RN - 01/09/2024 8:12 AM EST ----- Message from JEFF Brandt sent at 01/08/2024 6:41 PM EST ----- Hgb has declined to 7.8. Please ask patient to repeat in one week along with ferritin and iron screen. documented in this encounter Plan of Treatment Upcoming Encounters Date Type Department Care Team (Latest Contact Info) Description 01/30/2024 12:42 PM EST Hospital Encounter OR [facility], Operating Room, [facility] - 4th Floor [address] [place] [address] Frank Peraza MD [address] [place] [address] 01/30/2024 12:42 PM EST - 01/30/2024 1:44 PM EST Surgery OR [facility], Operating Room, [facility] - 4th Floor [address] [place] [address] Frank Peraza MD [address] [place] [address] CYSTOURETHROSCOPY WITH FULGURATION MEDIUM BLADDER TUMOR 02/04/2024 8:40 AM EST Laboratory Lab Mobile Phlebotomy [facility] [address] [place] [address] [facility], [facility] Mobile Home Draw [address] [place] [address] 02/07/2024 11:00 AM EST Telemedicine [facility] [place] [address] [place] [address] Aidee Miller PA-C [address] [place] [address] Kriss Mays, [facility] C[facility] [address] [place] [address] 02/14/2024 2:45 PM EDT Office Visit Urology Lynnette Fitzpatrick [address] [place] [address] Frank Peraza MD [address] [place] [address] 02/18/2024 8:40 AM EDT Laboratory Lab Mobile Phlebotomy [facility] [address] [place] [address] [facility], [facility] Mobile Home Draw [address] [place] [address] 03/03/2024 8:40 AM EDT Laboratory Lab Mobile Phlebotomy [facility] [address] [place] [address] [facility], G[facility] Mobile Home Draw [address] [place] [address] 03/13/2024 2:00 PM EDT Office Visit Dermatology [facility] 200 [facility] [place] [address] Francisco Watson MD 200 [place] [address] 03/17/2024 8:40 AM EDT Laboratory Lab Mobile Phlebotomy [facility] [address] [place] [address] [facility], [facility] Mobile Home Draw [address] [place] [address] 03/24/2024 2:30 PM EDT Office Visit Hematology/Oncolo gy [facility] 200 [facility] [place] [phone] Zulay Barbosa CRNP 400 [facility] [place] [address] 03/30/2024 12:00 PM EDT Office [facility] [place] [address] Kristen Vences DO [address] [place] [address] 03/31/2024 8:40 AM EDT Laboratory Lab Mobile Phlebotomy [facility] [address] [place] [address] Gmc, Gml Mobile Home Draw [address] [place] [address] 04/07/2024 10:00 AM EDT Office Visit Gastroenterology, [facility] [address] [place] [address] Lamar Barbosa CRNP [address] [place] [address] 04/14/2024 8:40 AM EDT Laboratory Lab Mobile Phlebotomy [facility] [address] [place] [address] Gm, Gml Mobile Home Draw [address] [place] [address] 04/28/2024 8:40 AM EDT Laboratory Lab Mobile Phlebotomy [facility] [address] [place] [address] Gm, Gml Mobile Home Draw [address] [place] [address] 05/12/2024 8:40 AM EDT Laboratory Lab Mobile Phlebotomy [facility] [address] [place] [address] Gmc, Gml Mobile Home Draw [address] [place] [address] 05/26/2024 8:40 AM EDT Laboratory Lab Mobile Phlebotomy [facility] [address] [place] [address] Gmc, Gml Mobile Home Draw [address] [place] [address] 06/09/2024 8:40 AM EDT Laboratory Lab Mobile Phlebotomy [facility] [address] [place] [address] Gmc, Gml Mobile Home Draw [address] [place] [address] 06/23/2024 8:40 AM EDT Laboratory Lab Mobile Phlebotomy [facility] [address] [place] [address] Gmc, Gml Mobile Home Draw [address] [place] [address] 07/07/2024 8:40 AM EDT Laboratory Lab Mobile Phlebotomy C [address] [place] [address] Gmc, Gml Mobile Home Draw [address] [place] [address] 07/21/2024 8:40 AM EDT Laboratory Lab Mobile Phlebotomy C [address] [place] [address] Gmc, Gml Mobile Home Draw [address] [place] [address] 08/04/2024 8:40 AM EDT Laboratory Lab Mobile Phlebotomy C [address] [place] [address] Gmc, Gml Mobile Home Draw [address] [place] [address] 08/18/2024 8:40 AM EDT Laboratory Lab Mobile Phlebotomy [facility] [address] [place] [address] Gmc, Gml Mobile Home Draw [address] [place] [address] 08/20/2024 10:15 AM EDT Office Visit Ophthalmology, [address] [place] [address] Cody Gonzalez, DO [address] [place] [address] 09/01/2024 8:40 AM EDT Laboratory Lab Mobile Phlebotomy [facility] [address] [place] [address] [facility], [facility] Mobile Home Draw [address] [place] [address] 09/15/2024 8:40 AM EDT Laboratory Lab Mobile Phlebotomy [facility] [address] [place] [address] [facility], [facility] Mobile Home Draw [address] [place] [address] Scheduled Procedures Name Priority Associated Diagnoses Date/Ti ar CYSTOURETHROSCOPY WITH FULGU RATION MEDIUM BLADDER TUMOR [...] Additional history exists CKD PHOS USE SMARTSET 80042 01/28/202401/03, 07/26/2022, 12/05/2021, Additional history exists Diabetic Foot Exam 03/06/2024 03/06/2023, 0 01/03/2022, 03/02/2021, Additional history exists HbA1c 05/28/2024 11/27/2023, 05/03, 01/28/2023, Additional history exists Albumin/Creatinine Ratio 07/12/2024 023, 10/01/2022, 09/11/2021, Additional history exists GFR 07/17/2024 01/17/2024, 12/03, 11/16/2023, Additional history exists COLONOSCOPY-ANNUAL AGES 18-100 08/09/2024 08/09/2023, 11/07/2022, 11/07/2022, Additional history exists CKD HGB USE SMARTSET 80576 01/21/202501/21, 01/21/2024, 01/07/2024, Additional history exists Lipid [...] this encounter Medical Devices Implanted Type Area Laundry Superintendent Device Identifier Shelf Expiration Date Model / Serial / Lot Clareon Iol Aspheric Hydrophobic Acrylic Iol Implanted:Qty: 1 on 04/23/2023 by Cody Gonzalez DO at OR [facility] Lens Left: Eye 11/12/2025 [id number] / [id number] / Viatorr Tips Endoprosthesis 8-10 Mm X 8cm / 2cm Implanted:Qty: 1 on 10/07/2020 by Go Alvarado MD at [facility] Right: Abdomen 03/03/2023 [id number] / / [id number] Description:Viatorr TIPS End oprosthesis 8-10 mm x 8cm / 2cm, Manufactored by [employer] Syr Pf 2ml Embospheres 100-300 - [id number] Implanted:Qty: 1 on 04/18/2021 by Kevin Lim DO at OR [facility] Left: Abdomen [employer] [id number] 11/25/2023 S220GH / / [id number] Lipiodol Injection - [id number] Implanted:Qty: 1 on 03/28/2022 at [facility] [employer] 03/01/2023 [id number] 12-03 [id number] Syr Pf 2ml Embospheres 100-300 - [id number] Implanted:Qty: 1 on 03/28/2022 at [facility] [employer] [id number] 08/31/2024 S220GH / / [id number] -5 Clareon Iol Aspheric Hydrophobic Acrylic Iol Implanted:Qty: 1 on 04/02/2023 by Cody Gonzalez DO at OR [facility] Right: Eye JAZMIN 11/12/2025 CNA0T0 / [id number] / documented as of this encounter [...] Documents on File Type Date Recorded Patient Clerical Transcriber Expl anation Advance Directives and Living Will 12/11/2022 ADVANCE DIRECTIVE / LIVING WILL LIVING WILL Power of Conditioning Room Worker 12/11/2022 POWER OF A TTORNEY Latest [...] the patient have Health Care Power of Conditioning Room Worker? No Full Code 07/22/2014 9:56 PM 07/24/2014 8:18 PM This order reflects the patients wishes and were consensually agreed upon. Question Answer Comments Discussion of Advance Directives occurred with: Patient Does the patient have a Living Will? No Does the patient have Health Care Power of Conditioning Room Worker? No Care Teams Pass Worker Relationship Specialty Start Date End Date Francisco Cisse MD 200 [place] [address] PCP - General Internal Medicine 09/04/21 documented as of this encounter
--- OUTSIDE RECORDS SUMMARY | 2024-01-25 17:07 | External Medical Summary ---
Author Name Unknown Address Unknown Organization K01:LABORATORY [facility] - [address] [facility] [place] [address] Laboratory Report Ordering Provider Test Date Status CHELSEY ADAMS 01/24/2024 15:05:18 Final Observation Date Value Abnormality Reference (Units ) Status BUN 01/24/2024 15:05:18 25 Above high normal 6-20 (mg/dL) Final Creatinine 01/24/2024 15:05:18 1.3 Above high normal 0.6-1.2 (mg/dL) Final Glomerular filtration rate/1.73 sq M.predicted [Volume Rate/Area] in Serum, Plasma or Blood by Creatinine-based formula (CKD-EPI) 01/24/2024 15:05:18 57 Below low normal >=60 (mL/min) Final eGFR is calculated based on the CKD-EPI 2020 equation SODIUM 01/24/2024 15:05:18 140 135-146 (m mol/L) Final Potassium 01/24/2024 15:05:18 4.7 3.5-5.1 (m mol/L) Final Cl 01/24/2024 15:05:18 110 Above high normal 98 -107 (mmol/L) Final CO2 01/24/2024 15:05:18 18 Below low normal 22- 32 (mmol/L) Final Anion gap 01/24/2024 15:05:18 12 7-15 (mmol /L) Final Glucose 01/24/2024 15:05:18 183 Above high normal 70 -120 (mg/dL) Final Albumin 01/24/2024 15:05:18 2.9 Below low normal 3.8 -5.0 (g/dL) Final AST (Aspartate aminotransferase) 01/24/2024 15:05:18 39 10-50 (U/L) Fin al Alk Phos 01/24/2024 15:05:18 183 Above high normal 35 -130 (U/L) Final Bilirubin, Total 01/24/2024 15:05:18 1.6 Above high no rmal <=1.2 (mg/dL) Final Calcium 01/24/2024 15:05:18 8.2 Below low normal 8.4 -10.2 (mg/dL) Final Protein 01/24/2024 15:05:18 6.0 6.0-8.3 (g /dL) Final ALT (Alanine aminotransferase) 01/24/2024 15:05:18 19 10-50 (U/L) Layo dye Performing Location [facility]ORY [facility] - [address] [facility] [address]
--- OUTSIDE RECORDS SUMMARY | 2024-01-25 17:07 | External Medical Summary | Summary of Care ---
Author Name Unknown Organization [facility] Address [address] [facility] [place] [address] Phone [phone] Care Team Providers Care Raisin Washer Name Role Phone Francisco Cisse MD Primary Care Provider + Reason for Referral * Precert (Within 10 days (routine)) - Authorized Specialty Diagnoses / Procedures Referred By Chacho fleming Referred To Contact Radiology Diagnoses HCC (hepatocellular carcinoma) (HCC) Procedures IR CANCER CHEMO EMBOLIZATION (TACE) Lamar Tatum CRNP [address] [place] [address] Referral ID Status Reason Start Date Expiration Date V isits Requested Visits Authorized [id number] Authorized 01/31/2024 999 999 Reason for Visit * Reason Onset Date Comments Appointment 01/24/2024 Encounter Details Date Type Department Care Team (Late st Contact Info) Description 01/24/2024 Telephone Gastroenterology, [facility] [address] [place] [address] Lamar Tatum CRNP [address] [place] [address] Appointment Allergies No known active allergiesdocumented as [...] mRNA, LNP-s, No Pre serve, 2-Dose Series ([employer]) 03/08/2021,02/15/2021 HepA Inact/HepB Recomb>=18yrs old 12/04/2019,04/2019,05/20/2019 11/19/2019 PPD 06/18/2017, 3,01/09/2012,06/2011 Pneumococcal Conjugate Vacc, 13 Valent (Prevnar) 05/01/2017 Pneumococcal Polysaccharide PPV23 (Pneumovax) 08/28/2022,10/25/2015,07/14/2012 Season Influenza, Quad, PF, Adjuvanted, 65+ Yrs, IM (FLUAD) 10/07/2020(Deferred: Patient Refused - pt says he already had his shot last month at [facility] Lyons and Mckinley Cobian [...] encounter Miscellaneous Notes * Telephone Encounter - Lamar Tatum CRNP - 01/24/2024 3:24 PM EST Jocelyne Tessie Hale, [id number] is list for transplant Can you check w IR about HCC treatment. If you recall Mr. Hale had a change in liver lesions on an MRI at [facility] in December. I presented to tumor board about 3 wks ago and it was decided that the L Lobe liver lesion is enlarging and should be tx by IR. Next, I placed an order for IR at [facility] but it was reviewed by Dr Daley who felt that this type of procedure needs to be done at [place]. I believe I placed the order this time for [facility], but the pt tells me he hasn't yet gotten a phone call to schedule. I'll place the order again. If you can make sure the order is in place (correct order etc) and thathe gets contacted by ASA Tong (If you have an inside contact), that would be helpful. I saw the pt in clinic today and he would like to go forward w the tx. His son is does all the driving and OK to call him to set up appt. JEFF Archibald documented in this encounter Plan of Treatment Upcoming Encounters Date Type Department Care Team (Latest Contact Info) Description 01/27/2024 10:00 AM EST Hem/Onc Treatment Hematology/Oncolo gy Treatment, [place] [address] [place] [phone] 01/30/2024 12:42 PM EST Hospital Encounter OR [facility], Operating Room, [facility] - 4th Floor [address] [place] [address] Frank Peraza MD 27 [facility] [address] [place] [address] 01/30/2024 12:42 PM EST - 01/30/2024 1:44 PM EST Surgery OR [facility], Operating Room, [facility] - 4th Floor [address] [place] [address] Frank Peraza MD 27 [facility] [address] [place] [address] CYSTOURETHROSCOPY WITH FULGURATION MEDIUM BLADDER TUMOR 02/04/2024 8:40 AM EST Laboratory Lab Mobile Phlebotomy [facility] [address] [place] [address] [facility], [facility] Mobile Home Draw [address] [place] [address] 02/07/2024 11:00 AM EST Telemedicine [facility] [place] [address] [place] [address] Aidee Miller PA-C [address] [place] [address] Kriss Mays, [facility] [address] [place] [address] 02/14/2024 2:45 PM EDT Office Visit Urology Lynnette Fitzpatrick [address] [place] [address] Frank Peraza MD [address] [place] [address] 02/18/2024 8:40 AM EDT Laboratory Lab Mobile Phlebotomy [facility] [address] [place] [address] Gmc, Gml Mobile Home Draw [address] [place] [address] 03/03/2024 8:40 AM EDT Laboratory Lab Mobile Phlebotomy [facility] [address] [place] [address] Gmc, Gml Mobile Home Draw [address] [place] [address] 03/13/2024 2:00 PM EDT Office Visit Dermatology [facility] 200 [facility] [place] [address] Francisco Watson MD 200 [facility] [place] [address] 03/17/2024 8:40 AM EDT Laboratory Lab Mobile Phlebotomy [facility] [address] [place] [address] [facility], Gml Mobile Home Draw [address] [place] [address] 03/24/2024 2:30 PM EDT Office Visit Hematology/Oncolo gy [facility] 200 [facility] [place] [phone] Ayaka Tatum CRNP [address] [place] [address] 03/30/2024 12:00 PM EDT Office Visit Family Practice [facility] [address] [place] [address] Kristen Vences DO [address] [place] [address] 03/31/2024 8:40 AM EDT Laboratory Lab Mobile Phlebotomy [facility] [address] [place] [address] Gmc, Gml Mobile Home Draw [address] [place] [address] 04/07/2024 10:00 AM EDT Office Visit Gastroenterology, [facility] [address] [place] [address] Lamar Tatum CRNP [address] [place] [address] 04/14/2024 8:40 AM EDT Laboratory Lab Mobile Phlebotomy [facility] [address] [place] [address] Gmc, Gml Mobile Home Draw [address] [place] [address] 04/28/2024 8:40 AM EDT Laboratory Lab Mobile Phlebotomy [facility] [address] [place] [address] Gmc, Gml Mobile Home Draw [address] [place] [address] 05/12/2024 8:40 AM EDT Laboratory Lab Mobile Phlebotomy C [address] [place] [address] Gmc, Gml Mobile Home Draw [address] [place] [address] 05/26/2024 8:40 AM EDT Laboratory Lab Mobile Phlebotomy C [address] [place] [address] Gmc, Gml Mobile Home Draw [address] [place] [address] 06/09/2024 8:40 AM EDT Laboratory Lab Mobile Phlebotomy [facility] [address] [place] [address] Gmc, Gml Mobile Home Draw [address] [place] [address] 06/23/2024 8:40 AM EDT Laboratory Lab Mobile Phlebotomy [facility] [address] [place] [address] Gmc, Gml Mobile Home Draw [address] [place] [address] 07/07/2024 8:40 AM EDT Laboratory Lab Mobile Phlebotomy [facility] [address] [place] [address] Gmc, Gml Mobile Home Draw [address] [place] [address] 07/21/2024 8:40 AM EDT Laboratory Lab Mobile Phlebotomy [facility] [address] [place] [address] Gmc, Gml Mobile Home Draw [address] [place] [address] 08/04/2024 8:40 AM EDT Laboratory Lab Mobile Phlebotomy [facility] [address] [place] [address] Gmc, Gml Mobile Home Draw [address] [place] [address] 08/18/2024 8:40 AM EDT Laboratory Lab Mobile Phlebotomy [facility] [address] [place] [address] Gmc, Gml Mobile Home Draw [address] [place] [address] 08/20/2024 10:15 AM EDT Office Visit Ophthalmology, [facility] 132 [facility] [place] [address] Cody Gonzalez DO 21 [facility] [place] [address] 09/01/2024 8:40 AM EDT Laboratory Lab Mobile Phlebotomy [facility] [address] [place] [address] Gm, Gm Mobile Home Draw [address] [place] [address] 09/15/2024 8:40 AM EDT Laboratory Lab Mobile Phlebotomy [facility] [address] [place], [place] [address] [facility], Gm Mobile Home Draw [address] [place] [address] Scheduled Orders Name Type Priority Associated Diagnoses Orde r Schedule IR CANCER CHEMO EMBOLIZATION (TACE) Medical Imaging Routine HCC (hepatocellular carcinoma) (HCC) Expected: 01/31/2024, Expires: 02/21/2025 Scheduled Procedures Name Priority Associated [...] Additional history exists CKD PHOS USE SMARTSET 34386 01/28/202401/03, 07/26/2022, 12/05/2021, Additional history exists Diabetic Foot Exam 03/06/2024 03/06/2023, 0 01/03/2022, 03/02/2021, Additional history exists HbA1c 05/28/2024 11/27/2023, 05/03, 01/28/2023, Additional history exists Albumin/Creatinine Ratio 07/12/2024 023, 10/01/2022, 09/11/2021, Additional history exists GFR 07/17/2024 01/17/2024, 12/03, 11/16/2023, Additional history exists COLONOSCOPY-ANNUAL AGES 18-100 08/09/2024 08/09/2023, 11/07/2022, 11/07/2022, Additional history exists CKD HGB USE SMARTSET 89416 01/24/202501/24, 01/24/2024, 01/21/2024, Additional history exists Lipid [...] encounter Medical Devices Implanted Type Area Laundry Helper Device Identifier Shelf Expiration Date Model / Serial / Lot Clareon Iol Aspheric Hydrophobic Acrylic Iol Implanted:Qty: 1 on 04/23/2023 by Cody Gonzalez DO at OR [facility] Lens Left: Eye 11/12/2025 CNA0T0 / [id number] / Viatorr Tips Endoprosthesis 8-10 Mm X 8cm / 2cm Implanted:Qty: 1 on 10/07/2020 by Go Alvarado MD at [facility] Right: Abdomen 03/03/2023 [id number] / / [id number] Description:Viatorr TIPS End oprosthesis 8-10 mm x 8cm / 2cm, Manufactored by [employer] Syr Pf 2ml Embospheres 100-300 - [id number] Implanted:Qty: 1 on 04/18/2021 by Kevin Lim DO at OR [facility] Left: Abdomen [employer] [id number] 11/25/2023 S220GH / / [id number] -5 Lipiodol Injection - [id number] Implanted:Qty: 1 on 03/28/2022 at [facility] [employer] 03/01/2023 547[address]-24 01-2 / / [id number] Syr Pf 2ml Embospheres 100-300 - [id number] Implanted:Qty: 1 on 03/28/2022 at [facility] [employer] [id number] 08/31/2024 S220GH / / [id number] -5 Clareon Iol Aspheric Hydrophobic Acrylic Iol Implanted:Qty: 1 on 04/02/2023 by Cody Gonzalez DO at OR [facility] Right: Eye JAZMIN 11/12/2025 CNA0T0 / [id number] / documented as of this encounter Visit Diagnoses Diagnosis Hematuria, gross- Primary Gross hematuria Prostate cancer (HCC) Malignant neoplasm of prostate Abnormal cystoscopy Other nonspecific abnormal finding HCC (hepatocellular carcinoma) (HCC)- Primary Malignant neoplasm of liver, primary Hematuria, gross Gross hematuria Abnormal cystoscopy Other nonspecific abnormal finding documented in this encounter Advance Directives Documents on File Type Date Recorded Patient Conference Coordinator Expl anation Advance Directives and Living Will 12/11/2022 ADVANCE DIRECTIVE / LIVING WILL LIVING WILL Power of Debeader 12/11/2022 POWER OF A TTORNEY Latest Code [...] the patient have Health Care Power of Debeader? No Full Code 07/22/2014 9:56 PM 07/24/2014 8:18 PM This order reflects the patients wishes and were consensually agreed upon. Question Answer Comments Discussion of Advance Directives occurred with: Patient Does the patient have a Living Will? No Does the patient have Health Care Power of Debeader? No Care Teams Raisin Washer Relationship Specialty Start Date End Date Francisco Cisse MD 200 [place] [address] PCP - General Internal Medicine 09/04/21 documented as of this encounter
--- OUTSIDE RECORDS SUMMARY | 2024-01-25 17:07 | External Medical Summary | Summary of Care ---
Author Name Unknown Organization [facility] Address [address] [address] Phone [phone] Care Team Providers Care It Sales Representative Name Role Phone Francisco Cisse MD Primary Care Provider + Reason for Visit * Reason Comments Follow Up Follow up Encounter Details Date Type Department Care Team (Late st Contact Info) Description 01/24/2024 2:00 PM EST Office Visit Gastroenterology, [facility] [address] [place] [address] Lamar Tatum CRNP [address] [place] [address] NAFLD (nonalcoholic fatty liver disease)*; Cirrhosis of [...] mRNA, LNP-s, No Pre serve, 2-Dose Series ([employer]) 03/08/2021,02/15/2021 HepA Inact/HepB Recomb>=18yrs old 12/04/2019,04/2019,05/20/2019 11/19/2019 PPD 06/18/2017, 3,01/09/2012,06/2011 Pneumococcal Conjugate Vacc, 13 Valent (Prevnar) 05/01/2017 Pneumococcal Polysaccharide PPV23 (Pneumovax) 08/28/2022,10/25/2015,07/14/2012 Season Influenza, Quad, PF, Adjuvanted, 65+ Yrs, IM (FLUAD) 10/07/2020(Deferred: Patient Refused - pt says he already had his shot last month at [facility] Handy Lyons and Mckinley [...] recheck NAFLD cirrhosis. He transferred here from [facility] hepatology in July 2020. TIPs was completed on 10/07/20. Revision Jan 2021. Hx of TACE for HCC. On the liver transplant list,followed by [facility]. Followed by Hem/onc anemia clinic. Interim [...] but not rapid. Suspectsanemia. Anemia: Hb at [facility] on 12/15 7.2/Hct 22.4 BUN 20, Cr [...] and revision - Most recent paracentesis at [facility] 08/28/23 4.5L removed. Hx HCC: Liver MRI [...] increased in size. I reminded him that [facility] called him and explained this - though at that time I had told him that procedure could be doneat [facility]. Today, I placed an IR referral for [facility] for tx. A new telephone encounter was started w another order for IR (previously ordered for [facility], now ordered for [facility] per Dr. Daley recommendations that the procedure is not done in [place]). Encourter routed to Jocelyne Sykes RN liver hospital unit coordinator to help with scheduling in IR. [...] AM EST Hem/Onc Treatment Hematology/Oncolo gy Treatment, [place] [address] [place] [phone] 01/30/2024 12:42 PM EST Hospital Encounter OR [facility], Operating Room, [facility] - 4th Floor [address] [place] [address] Frank Peraza MD [address] [place] [address] 01/30/2024 12:42 PM EST - 01/30/2024 1:44 PM EST Surgery OR [facility], Operating Room, [facility] Floor [address] [place] [address] Frank Peraza MD [address] [place] [address] CYSTOURETHROSCOPY WITH FULGURATION MEDIUM BLADDER TUMOR 02/04/2024 8:40 AM EST Laboratory Lab Mobile Phlebotomy [facility] [address] [place] [address] [facility], Gm Mobile Home Draw [address] [place] [address] 02/07/2024 11:00 AM EST Telemedicine [facility], [place] [address] [place] [address] Aidee Miller PA-C [address] [place] [address] Kriss Mays, [facility] Keyboard Operator [address] [place] [address] 02/14/2024 2:45 PM EDT Office Visit Urology Lynnette Fitzpatrick [address] [place] [address] Frank Peraza MD [address] [place] [address] 02/18/2024 8:40 AM EDT Laboratory Lab Mobile Phlebotomy [facility] [address] [place] [address] [facility], [facility] Mobile Home Draw [address] [place] [address] 03/03/2024 8:40 AM EDT Laboratory Lab Mobile Phlebotomy [facility] [address] [place] [address] [facility], [facility] Mobile Home Draw [address] [place] [address] 03/13/2024 2:00 PM EDT Office Visit Dermatology [facility] [place] 200 [facility] [place] [address] Francisco Watson MD 200 [facility] [place] [address] 03/17/2024 8:40 AM EDT Laboratory Lab Mobile Phlebotomy [facility] [address] [place] [address] [facility], [facility] Mobile Home Draw [address] [place] [address] 03/24/2024 2:30 PM EDT Office Visit Hematology/Oncolo gy [facility] [address] [place] [phone] Ayaka Tatum CRNP [address] [place] [address] 03/30/2024 12:00 PM EDT Office Visit Family Practice [facility] [address] [place] [address] Kristen Vecnes DO [address] [place] [address] 03/31/2024 8:40 AM EDT Laboratory Lab Mobile Phlebotomy [facility] [address] [place] [address] [facility], [facility] Mobile Home Draw [address] [place] [address] 04/07/2024 10:00 AM EDT Office Visit Gastroenterology, [facility] [address] [place] [address] Lamar Tatum CRNP [address] [place] [address] 04/14/2024 8:40 AM EDT Laboratory Lab Mobile Phlebotomy [facility] [address] [place] [address] [facility], [facility] Mobile Home Draw [address] [place] [address] 04/28/2024 8:40 AM EDT Laboratory Lab Mobile Phlebotomy [facility] [address] [place] [address] [facility], Gml Mobile Home Draw [address] [place] [address] 05/12/2024 8:40 AM EDT Laboratory Lab Mobile Phlebotomy [facility] [address] [place] [address] [facility], Gml Mobile Home Draw [address] [place] [address] 05/26/2024 8:40 AM EDT Laboratory Lab Mobile Phlebotomy [facility] [address] [place] [address] [facility], Gml Mobile Home Draw [address] [place] [address] 06/09/2024 8:40 AM EDT Laboratory Lab Mobile Phlebotomy [facility] [address] [place] [address] [facility], Gml Mobile Home Draw [address] [place] [address] 06/23/2024 8:40 AM EDT Laboratory Lab Mobile Phlebotomy [facility] [address] [place] [address] [facility], Gml Mobile Home Draw [address] [place] [address] 07/07/2024 8:40 AM EDT Laboratory Lab Mobile Phlebotomy [facility] [address] [place] [address] [facility], Gml Mobile Home Draw [address] [place] [address] 07/21/2024 8:40 AM EDT Laboratory Lab Mobile Phlebotomy [facility] [address] [place] [address] [facility], Gml Mobile Home Draw [address] [place] [address] 08/04/2024 8:40 AM EDT Laboratory Lab Mobile Phlebotomy [facility] [address] [place] [address] Gm, Gm Mobile Home Draw [address] [place] [address] 08/18/2024 8:40 AM EDT Laboratory Lab Mobile Phlebotomy [facility] [address] [place] [address] Gm, Gm Mobile Home Draw [address] [place] [address] 08/20/2024 10:15 AM EDT Office Visit Ophthalmology, [address] [address] Cody Gonzalez DO [address] [place] [address] 09/01/2024 8:40 AM EDT Laboratory Lab Mobile Phlebotomy [facility] [address] [place] [address] [facility], [facility] Mobile Home Draw [address] [place] [address] 09/15/2024 8:40 AM EDT Laboratory Lab Mobile Phlebotomy [facility] [address] [place] [address] [facility], [facility] Mobile Home Draw [address] [place] [address] Pending Results Name Type Priority Associated Diagnoses [...] Additional history exists CKD PHOS USE SMARTSET 73540 01/28/202401/03, 07/26/2022, 12/05/2021, Additional history exists Diabetic Foot Exam 03/06/2024 03/06/2023, 0 01/03/2022, 03/02/2021, Additional history exists HbA1c 05/28/2024 11/27/2023, 05/03, 01/28/2023, Additional history exists Albumin/Creatinine Ratio 07/12/2024 023, 10/01/2022, 09/11/2021, Additional history exists GFR 07/17/2024 01/17/2024, 12/03, 11/16/2023, Additional history exists COLONOSCOPY-ANNUAL AGES 18-100 08/09/2024 08/09/2023, 11/07/2022, 11/07/2022, Additional history exists CKD HGB USE SMARTSET 86226 01/24/202501/24, 01/24/2024, 01/21/2024, Additional history exists Lipid [...] this encounter Medical Devices Implanted Type Area Unix System Administrator Device Identifier Shelf Expiration Date Model / Serial / Lot Clareon Iol Aspheric Hydrophobic Acrylic Iol Implanted:Qty: 1 on 04/23/2023 by Cody Gonzalez DO at [facility] Lens Left: Eye 11/12/2025 CNA0T0 / [id number] / Viatorr Tips Endoprosthesis 8-10 Mm X 8cm / 2cm Implanted:Qty: 1 on 10/07/2020 by Go Alvarado MD at [facility] Right: Abdomen 03/03/2023 [id number] / / [id number] Description:Viatorr TIPS End oprosthesis 8-10 mm x 8cm / 2cm, Manufactored by [employer] Syr Pf 2ml Embospheres 100-300 - [id number] Implanted:Qty: 1 on 04/18/2021 by Kevin Lim DO at OR [facility] Left: Abdomen [employer] [id number] 11/25/2023 S220GH / / [id number] -[id number] Lipiodol Injection - [id number] Implanted:Qty: 1 on 03/28/2022 at [facility] [employer] 03/01/2023 [id number] 01-2 [id number] Syr Pf 2ml Embospheres 100-300 - [id number] Implanted:Qty: 1 on 03/28/2022 at [facility] [employer] [id number] 08/31/2024 S220GH / / [id number] -5 Clareon Iol Aspheric Hydrophobic Acrylic Iol Implanted:Qty: 1 on 04/02/2023 by Cody Gonzalez DO at OR [facility] Right: Eye JAZMIN 11/12/2025 CNA0T0 / [id number] / documented as of this encounter [...] on File Type Date Recorded 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 No Full Code 07/22/2014 9:56 PM 07/24/2014 8:18 PM This order reflects the patients wishes and were consensually agreed upon. Question Answer Comments Discussion of Advance Directives occurred with: Patient Does the patient have a Living Will? No Does the patient have Health Care Power of Lining Closer? No Care Teams It Sales Representative Relationship Specialty Start Date End Date Francisco Cisse MD [address] [place] [address] PCP - General Internal Medicine 09/04/21 documented as of this encounter
--- OUTSIDE RECORDS SUMMARY | 2024-01-25 17:07 | External Medical Summary | Summary of Care ---
Author Name Unknown Organization [facility] Address [address] [facility] [address] Phone [phone] Care Team Providers Care Certified Forklift Operator Name Role Phone Francisco Cisse MD Primary Care Provider + Reason for Visit * Reason Comments Outpatient Testing Encounter Details Date Type Department Care Team (Late st Contact Info) Description 01/24/2024 3:20 PM EST Laboratory Laboratory, [facility] 132 [facility] [place] [phone] [facility] 132 [facility] [place] [address] Iron deficiency anemia due to chronic blood loss; Cirrhosis of liver with ascites, unspecified hepatic cirrhosis type (HCC); Hemoglobinuria Allergies No known active allergiesdocumented [...] mRNA, LNP-s, No Pre serve, 2-Dose Series ([employer]) 03/08/2021,02/15/2021 HepA Inact/HepB Recomb>=18yrs old 12/04/2019,04/2019,05/20/2019 11/19/2019 [...] AM EST Hem/Onc Treatment Hematology/Oncolo gy Treatment, [place] [address] [place] [address] 01/30/2024 12:42 PM EST Hospital Encounter OR [facility], Operating Room, [facility] - 4th Floor [address] [place] [address] Frank Peraza MD [address] [place] [address] 01/30/2024 12:42 PM EST - 01/30/2024 1:44 PM EST Surgery OR [facility], Operating Room, [facility] - 4th Floor [address] [place] [address] Frank Peraza MD [address] [place] [address] CYSTOURETHROSCOPY WITH FULGURATION MEDIUM BLADDER TUMOR 02/04/2024 8:40 AM EST Laboratory Lab Mobile Phlebotomy [facility] [address] [place] [address] [facility], [facility] Mobile Home Draw [address] [place] [address] 02/07/2024 11:00 AM EST Telemedicine [facility], [place] [address] [place] [address] Aidee Miller PA-C [address] [place] [address] Kriss Mays, [facility] Well Head Pumper [address] [place] [address] 02/14/2024 2:45 PM EDT Office Visit Urology Lynnette Fitzpatrick [address] [place] [address] Frank Peraza MD [address] [place] [address] 02/18/2024 8:40 AM EDT Laboratory Lab Mobile Phlebotomy [facility] [address] [place] [address] [facility], Gml Mobile Home Draw [address] [place] [address] 03/03/2024 8:40 AM EDT Laboratory Lab Mobile Phlebotomy [facility] [address] [place] [address] Gm, Gml Mobile Home Draw [address] [place] [address] 03/13/2024 2:00 PM EDT Office Visit Dermatology [facility] 200 [facility] [place] [address] Francisco Watson MD 200 [facility] [place] [address] 03/17/2024 8:40 AM EDT Laboratory Lab Mobile Phlebotomy [facility] [address] [place] [address] [facility]mc, Gml Mobile Home Draw [address] [place] [address] 03/24/2024 2:30 PM EDT Office Visit Hematology/Oncolo gy [facility] [address] [place] [address] Ayaka Tatum CRNP 400 [facility] [place] [address] 03/30/2024 12:00 PM EDT Office Visit Family Practice [facility] [address] [place] [address] Kristen Vences DO 132 [place] [address] 03/31/2024 8:40 AM EDT Laboratory Lab Mobile Phlebotomy [facility] [address] [place] [address] [facility], [facility] Mobile Home Draw [address] [place] [address] 04/07/2024 10:00 AM EDT Office Visit Gastroenterology, [facility] [address] [place] [address] Lamar Tatum CRNP [address] [place] [address] 04/14/2024 8:40 AM EDT Laboratory Lab Mobile Phlebotomy [facility] [address] [place] [address] [facility], [facility] Mobile Home Draw [address] [place] [address] 04/28/2024 8:40 AM EDT Laboratory Lab Mobile Phlebotomy [facility] [address] [place] [address] [facility], l Mobile Home Draw [address] [place] [address] 05/12/2024 8:40 AM EDT Laboratory Lab Mobile Phlebotomy [facility] [address] [place] [address] [facility], Gml Mobile Home Draw [address] [place] [address] 05/26/2024 8:40 AM EDT Laboratory Lab Mobile Phlebotomy [facility] [address] [place] [address] Gmc, Gml Mobile Home Draw [address] [place] [address] 06/09/2024 8:40 AM EDT Laboratory Lab Mobile Phlebotomy [facility] [address] [place] [address] Gmc, Gml Mobile Home Draw [address] [place] [address] 06/23/2024 8:40 AM EDT Laboratory Lab Mobile Phlebotomy [facility] [address] [place] [address] Gmc, Gml Mobile Home Draw [address] [place] [address] 07/07/2024 8:40 AM EDT Laboratory Lab Mobile Phlebotomy [facility] [address] [place] [address] Gmc, Gml Mobile Home Draw [address] [place] [address] 07/21/2024 8:40 AM EDT Laboratory Lab Mobile Phlebotomy [facility] [address] [place] [address] Gmc, Gml Mobile Home Draw [address] [place] [address] 08/04/2024 8:40 AM EDT Laboratory Lab Mobile Phlebotomy [facility] [address] [place] [address] Gmc, Gml Mobile Home Draw [address] [place] [address] 08/18/2024 8:40 AM EDT Laboratory Lab Mobile Phlebotomy [facility] [address] [place] [address] [facility], [facility] Mobile Home Draw [address] [place] [address] 08/20/2024 10:15 AM EDT Office Visit Ophthalmology, [facility] [address] [place] [address] Cody Gonzalez DO [address] [place] [address] 09/01/2024 8:40 AM EDT Laboratory Lab Mobile Phlebotomy [facility] [address] [place] [address] [facility], [facility] Mobile Home Draw [address] [place] [address] 09/15/2024 8:40 AM EDT Laboratory Lab Mobile Phlebotomy [facility] [address] [place] [address] [facility], [facility] Mobile Home Draw [address] [place] [address] Pending Results Name Type Priority Associated Diagnoses Date /Time BILIRUBIN, DIRECT Lab Routine Cirrhosis of liver with ascites, unspecified hepatic cirrhosis type (HCC) 01/24/2024 3:05 PM EST URINALYSIS, REFLEX TO MICROSCOPIC Lab Routine Cirrhosis of liver with ascites, unspecified hepatic cirrhosis type (HCC) 01/24/2024 3:10 PM EST CULTURE, URINE, QUANTITATIVE Lab Routine Cirrhosis of liver with ascites, unspecified hepatic cirrhosis type (HCC) Hemoglobinuria 01/24/2024 3:10 PM EST Scheduled Procedures Name Priority Associated Diagnoses [...] Additional history exists CKD PHOS USE SMARTSET 77494 01/28/202401/03, 07/26/2022, 12/05/2021, Additional history exists Diabetic Foot Exam 03/06/2024 03/06/2023, 0 01/03/2022, 03/02/2021, Additional history exists HbA1c 05/28/2024 11/27/2023, 05/03, 01/28/2023, Additional history exists Albumin/Creatinine Ratio 07/12/2024 023, 10/01/2022, 09/11/2021, Additional history exists GFR 07/17/2024 01/17/2024, 12/03, 11/16/2023, Additional history exists COLONOSCOPY-ANNUAL AGES 18-100 08/09/2024 08/09/2023, 11/07/2022, 11/07/2022, Additional history exists CKD HGB USE SMARTSET 75184 01/24/202501/24, 01/24/2024, 01/21/2024, Additional history exists Lipid [...] this encounter Medical Devices Implanted Type Area Pony Ride Attendant Device Identifier Shelf Expiration Date Model / Serial / Lot Clareon Iol Aspheric Hydrophobic Acrylic Iol Implanted:Qty: 1 on 04/23/2023 by Cody Gonzalez DO at OR [facility] Lens Left: Eye 11/12/2025 CNA0T0 / [id number] / Viatorr Tips Endoprosthesis 8-10 Mm X 8cm / 2cm Implanted:Qty: 1 on 10/07/2020 by Go Alvarado MD at [facility] Right: Abdomen 03/03/2023 [id number] / / [id number] Description:Viatorr TIPS End oprosthesis 8-10 mm x 8cm / 2cm, Manufactored by [employer] [place] [employer] Syr Pf 2ml Embospheres 100-300 - [id number] Implanted:Qty: 1 on 04/18/2021 by Kevin Lim DO at OR [facility] Left: Abdomen [email or web address] [id number] 11/25/2023 S220GH / / [id number] -5 Lipiodol Injection - [id number] Implanted:Qty: 1 on 03/28/2022 at [facility] [employer] 03/01/2023 [id number] 01-2 / / [id number] Syr Pf 2ml Embospheres 100-300 - [id number] Implanted:Qty: 1 on 03/28/2022 at [facility] [employer] [id number] 08/31/2024 S220GH / / [id number] -5 Clareon Iol Aspheric Hydrophobic Acrylic Iol Implanted:Qty: 1 on 04/02/2023 by Cody Gonzalez DO at [facility] Right: Eye JAZMIN 11/12/2025 CNA0T0 / [id number] / documented as of this encounter Procedures Procedure Name Priority Date/Time Associated Diagnosis Comments DIFFERENTIAL, AUTOMATED STAT 01/24/2024 3:05 PM EST Cirrhosis of liver with ascites, unspecified hepatic cirrhosis type (HCC) CBC STAT 01/24/2024 3:05 PM EST Cirrhosis of liver with ascites, unspecified hepatic cirrhosis type (HCC) CBC STAT 01/24/2024 3:05 PM EST Cirrhosis of liver with ascites, unspecified hepatic cirrhosis type (HCC) documented in this encounter Results * (ABNORMAL) DIFFERENTIAL, AUTOMATED (01/24/2024 3:05 PM EST) WBC 3.63(L) 4.00 - 10.80 K/uL 01/24/2024 3:22 PM EST [facility] [place] 57-10 Neutrophils % 62.5 40.0 - 75.0 % 01/24/2024 3:22 PM EST [facility] [place] 57-10 Lymphocytes % 24.0 18.0 - 42.0 % 01/24/2024 3:22 PM EST [facility] [place] 57-10 Monocytes % 8.3 1.0 - 11.0 % 01/24/2024 3:22 PM EST [facility] [place] 57-10 Eosinophils % 4.4 0.0 - 6.0 % 01/24/2024 3:22 PM EST [facility] [place] 57-10 Basophils % 0.8 0.0 - 2.0 % 01/24/2024 3:22 PM EST [facility] [place] 57-10 Absolute Neutrophils 2.27 1.80 - 7.70 K/uL 01/24/2024 3:22 PM EST [facility] [place] 57-10 Absolute Lymphocytes 0.87(L) 1.00 - 4.80 K/ul 01/24/2024 3:22 PM EST [facility] [place] 57-10 Absolute Monocytes 0.30 0.00 - 1.10 K/uL 01/24/2024 3:22 PM EST [facility] [place] 57-10 Absolute Eosinophils 0.16 0.00 - 0.70 K/uL 01/24/2024 3:22 PM EST [facility] Absolute Basophils 0.03 0.00 - 0.20 K/uL 01/24/2024 3:22 PM EST [facility] [place] 57-10 Blood Venous blood specimen / Unknown Venipuncture / Unknown 01/24/2024 3:05 PM EST 01/24/2024 3:05 PM EST Lamar AGUILAR LAB BLOOD ORDERABL ES [facility] [place] 57-10 [address] [place] [address] * (ABNORMAL) CBC (01/24/2024 3:05 PM EST) WBC 3.63(L) 4.00 - 10.80 K/uL 01/24/2024 3:22 PM EST [facility] [place] 57-10 RBC 2.38 4.50 - 5.25 M/uL 01/24/2024 3:22 PM EST [facility] [place] 57-10 HGB 7.4(L) 14.0 - 16.8 g/dL 01/24/2024 3:22 PM EST [facility] HCT 23.6(L) 40.0 - 48.4 % 01/24/2024 3:22 PM EST [facility] [place] 57-10 MCV 99.2 82.0 - 99.5 fL 01/24/2024 3:22 PM EST [facility] [place] 57[facility]10 MCH 31.1 27.0 - 34.0 pg 01/24/2024 3:22 PM EST [facility] MCHC 31.4 32.0 - 36.0 g/dL 01/24/2024 3:22 PM EST [facility] RDW 18.7 11.5 - 15.5 % 01/24/2024 3:22 PM EST [facility] PLT 100(L) 140 - 400 K/uL 01/24/2024 3:22 PM EST [facility] [place] 57[facility]10 MPV 12.6 6.6 - 11.1 fL 01/24/2024 3:22 PM EST [facility] [place] [facility] 57-10 Blood Venous blood specimen / Unknown Venipuncture / Unknown 01/24/2024 3:05 PM EST 01/24/2024 3:05 PM EST Lamar AGUILAR LAB BLOOD ORDERABL ES [facility] [place] [facility] 57-10 [address] [facility] [address] documented in this encounter Visit Diagnoses Diagnosis Hematuria, gross- Primary Gross hematuria Prostate cancer (HCC) Malignant neoplasm of prostate Abnormal cystoscopy Other nonspecific abnormal finding Iron deficiency anemia due to chronic blood loss Iron deficiency anemia secondary to blood loss (chronic) Cirrhosis of liver with ascites, unspecified hepatic cirrhosis type (HCC) Hemoglobinuria Hematuria, gross Gross hematuria Abnormal cystoscopy Other nonspecific abnormal finding documented in this encounter Advance Directives Documents on File Type Date Recorded Patient Hotbed Operator Expl anation Advance Directives and Living Will 12/11/2022 ADVANCE DIRECTIVE / LIVING WILL LIVING WILL Power of Bank Guard 12/11/2022 POWER OF A TTORNEY Latest Code [...] the patient have Health Care Power of Bank Guard? No Full Code 07/22/2014 9:56 PM 07/24/2014 8:18 PM This order reflects the patients wishes and were consensually agreed upon. Question Answer Comments Discussion of Advance Directives occurred with: Patient Does the patient have a Living Will? No Does the patient have Health Care Power of Bank Guard? No Care Teams Certified Forklift Operator Relationship Specialty Start Date End Date Francisco Cisse MD 200 [place] [address] PCP - General Internal Medicine 09/04/21 documented as of this encounter
--- OUTSIDE RECORDS SUMMARY | 2024-01-25 17:08 | External Medical Summary | Summary of Care ---
Author Name Unknown Organization [facility] Address [address] [place] [address] Phone [phone] Care Team Providers Care Electromechanical Equipment Assembler Name Role Phone Francisco Cisse MD Primary Care Provider + Reason for Visit * Reason Onset Date Comments Abnormal Lab Results 01/09/2024 CBCD Encounter Details Date Type Department Care Team (Late st Contact Info) Description 01/09/2024 Telephone Hematology/Oncology [facility] [address] Zulay Barbosa CRNP 400 [facility] [place] [address] Abnormal Lab Results (CBCD) Allergies No known active allergiesdocumented as of this encounter (statuses as of 01/20/2024) Medications Medication Sig Dispensed Refills Start Date [...] as of this encounter (statuses as of 01/20/2024) Active Problems Problem Noted Date Diagnosed Date [...] as of this encounter (statuses as of 01/20/2024) Resolved Problems Problem Noted Date Diagnosed Date [...] as of this encounter (statuses as of 01/20/2024) Immunizations Name Administration Dates Next Due COVID-19 mRNA, LNP-s, No Pre serve, 2-Dose Series ([employer]) 03/08/2021,02/15/2021 HepA Inact/HepB Recomb>=18yrs old 12/04/2019,04/2019,05/20/2019 11/19/2019 PPD 06/18/2017, 3,01/09/2012,0306/2011 Pneumococcal Conjugate Vacc, 13 Valent (Prevnar) 05/01/2017 Pneumococcal Polysaccharide PPV23 (Pneumovax) 08/28/2022,10/25/2015,07/14/2012 Season Influenza, Quad, PF, Adjuvanted, 65+ Yrs, IM (FLUAD) 10/07/2020(Deferred: Patient Refused - pt says he already had his shot last month at [facility] Handy Lyons and Mckinley Cobian made [...] encounter Miscellaneous Notes * Telephone Encounter - Joesphine Murphy RN - 01/20/2024 9:35 AM EST Called patient, he verbalized understanding. [place] plan built for monoferric and routed [...] Department Care Team (Latest Contact Info) Description 01/21/2024 8:40 AM EST Laboratory Lab Mobile Phlebotomy [facility] [address] [place] [address] [facility], [facility] [address] [place] [address] 01/21/2024 10:15 AM EST Cardiac Studies Cardiac Studies, [facility] [address] [place] [address] 01/30/2024 12:42 PM EST Hospital Encounter OR [facility], Operating Room, [facility] - 4th Floor [address] [place] [address] Frank Peraza MD [address] [place] [address] [place] [address] 01/30/2024 12:42 PM EST - 01/30/2024 1:44 PM EST Surgery OR [facility], Operating Room, [facility] - 4th Floor [address] [place] [address] Frank Peraza MD [address] [place] [address] CYSTOURETHROSCOPY WITH FULGURATION MEDIUM BLADDER TUMOR 02/04/2024 8:40 AM EST Laboratory Lab Mobile Phlebotomy [facility] [address] [place] [address] [facility], [facility] [address] [place] [address] 02/07/2024 11:00 AM EST Telemedicine [facility] [place] [address] [place] [address] Aidee Miller PA-C [address] [place] [address] Kriss Mays, [facility] [employer] [address] [place] [address] 02/14/2024 2:45 PM EDT Office Visit Urology Lynnette Fitzpatrick [address] [place] [address] Frank Peraza MD [address] [place] [address] 02/18/2024 8:40 AM EDT Laboratory Lab Mobile Phlebotomy [facility] [address] [place] [address] [facility], [facility] Draw [address] [place] [address] 03/03/2024 8:40 AM EDT Laboratory Lab Mobile Phlebotomy [facility] [address] [place] [address] [facility], [facility] Mobile Home Draw [address] [place] [address] 03/13/2024 2:00 PM EDT Office Visit Dermatology [facility] [address] [facility] [place] [place] [address] Francisco Watson MD [address] [place] [address] 03/17/2024 8:40 AM EDT Laboratory Lab Mobile Phlebotomy [facility] [address] [place] [address] [facility], [facility] [address] [place] [address] 03/24/2024 2:30 PM EDT Office Visit Hematology/Oncolo gy [facility] [address] [facility] [place] [address] Zulay Barbosa CRNP [address] [place] [address] 03/30/2024 12:00 PM EDT Office Visit Family Practice [facility] [place] [address] Kristen Vences DO [facility] [address] 03/31/2024 8:40 AM EDT Laboratory Lab Mobile Phlebotomy [facility] [address] [place] [address] [facility], [facility] [address] [place] [address] 04/07/2024 10:00 AM EDT Office Visit Gastroenterology, [facility] [address] [place] [address] Lamar Barbosa CRNP [address] [place] [address] 04/14/2024 8:40 AM EDT Laboratory Lab Mobile Phlebotomy [facility] [address] [place] [address] [facility], [facility] [address] [place] [address] 04/28/2024 8:40 AM EDT Laboratory Lab Mobile Phlebotomy [facility] [address] [place] [address] [facility], [facility] [address] [place] [address] 05/12/2024 8:40 AM EDT Laboratory Lab Mobile Phlebotomy [facility] [address] [place] [address] [facility], [facility] [address] [place] [address] 05/26/2024 8:40 AM EDT Laboratory Lab Mobile Phlebotomy [facility] [address] [place] [address] [facility], [facility] [address] [place] [address] 06/09/2024 8:40 AM EDT Laboratory Lab Mobile Phlebotomy [facility] [address] [place] [address] [facility], [facility] [address] [place] [address] 06/23/2024 8:40 AM EDT Laboratory Lab Mobile Phlebotomy [facility] [address] [place] [address] [facility], [facility] [address] [place] [address] 07/07/2024 8:40 AM EDT Laboratory Lab Mobile Phlebotomy [facility] [address] [place] [address] [facility], [facility] [address] [place] [address] 07/21/2024 8:40 AM EDT Laboratory Lab Mobile Phlebotomy [facility] [address] [place] [address] [facility], [facility] [address] [place] [address] 08/04/2024 8:40 AM EDT Laboratory Lab Mobile Phlebotomy [facility] [address] [place] [address] [facility], [facility] [address] [place] [address] 08/18/2024 8:40 AM EDT Laboratory Lab Mobile Phlebotomy [facility] [address] [place] [address] [facility], [facility] [address] [place] [address] 08/20/2024 10:15 AM EDT Office Visit Ophthalmology, [address] [address] Cody Gonzalez DO Tamra [place] [address] 09/01/2024 8:40 AM EDT Laboratory Lab Mobile Phlebotomy [facility] [address] [place] [address] [facility], [facility] [address] [place] [address] 09/15/2024 8:40 AM EDT Laboratory Lab Mobile Phlebotomy [facility] [address] [place] [address] [facility], [facility] [address] [place] [address] Scheduled Procedures Name Priority Associated Diagnoses Date/Ti nc CYSTOURETHROSCOPY WITH FULGU RATION MEDIUM BLADDER TUMOR [...] Additional history exists CKD PHOS USE SMARTSET 75536 01/28/202401/03, 07/26/2022, 12/05/2021, Additional history exists Diabetic Foot Exam 03/06/2024 03/06/2023, 0 01/03/2022, 03/02/2021, Additional history exists HbA1c 05/28/2024 11/27/2023, 05/03, 01/28/2023, Additional history exists Albumin/Creatinine Ratio 07/12/2024 023, 10/01/2022, 09/11/2021, Additional history exists GFR 07/17/2024 01/17/2024, 12/03, 11/16/2023, Additional history exists COLONOSCOPY-ANNUAL AGES 18-100 08/09/2024 08/09/2023, 11/07/2022, 11/07/2022, Additional history exists CKD HGB USE SMARTSET 21209 01/07/202501/07, 01/07/2024, 12/26/2023, Additional history exists Lipid Panel 01/28/2028 01/28/2023, [...] this encounter Medical Devices Implanted Type Area Dough Molder Hand Device Identifier Shelf Expiration Date Model / Serial / Lot Clareon Iol Aspheric Hydrophobic Acrylic Iol Implanted:Qty: 1 on 04/23/2023 by Cody Gnozalez DO at OR [facility] Lens Left: Eye 11/12/2025 [id number] / [id number] / Viatorr Tips Endoprosthesis 8-10 Mm X 8cm / 2cm Implanted:Qty: 1 on 10/07/2020 by Go Alvarado MD at [facility] Right: Abdomen 03/03/2023 [id number] / / [id number] Description:Viatorr TIPS End oprosthesis 8-10 mm x 8cm / 2cm, Manufactored by [employer] Syr Pf 2ml Embospheres 100-300 - [id number] Implanted:Qty: 1 on 04/18/2021 by Kevin Lim DO at OR [facility] Left: Abdomen [employer] [id number] 11/25/2023 S220GH / / [id number] Lipiodol Injection - [id number] Implanted:Qty: 1 on 03/28/2022 at [facility] [employer] 03/01/2023 [id number] 01-2 / / [id number] Syr Pf 2ml Embospheres 100-300 - [id number] Implanted:Qty: 1 on 03/28/2022 at [facility] [employer] [id number] 08/31/2024 S220GH / / [id number] Clareon Iol Aspheric Hydrophobic Acrylic Iol Implanted:Qty: 1 on 04/02/2023 by Cody Gonzalez DO at OR [facility] Right: Eye JAZMIN 11/12/2025 CNA0T0 / [id number] / documented as of this encounter [...] Documents on File Type Date Recorded Patient Appeals Board Referee Expl anation Advance Directives and Living Will 12/11/2022 ADVANCE DIRECTIVE / LIVING WILL LIVING WILL Power of Power Plant Engineer 12/11/2022 POWER OF A TTORNEY Latest [...] the patient have Health Care Power of Power Plant Engineer? No Full Code 07/22/2014 9:56 PM 07/24/2014 8:18 PM This order reflects the patients wishes and were consensually agreed upon. Question Answer Comments Discussion of Advance Directives occurred with: Patient Does the patient have a Living Will? No Does the patient have Health Care Power of Power Plant Engineer? No Care Teams Electromechanical Equipment Assembler Relationship Specialty Start Date End Date Francisco Cisse MD [address] [place] [address] PCP - General Internal Medicine 09/04/21 documented as of this encounter
--- OUTSIDE RECORDS SUMMARY | 2024-01-25 17:08 | External Medical Summary | Summary of Care ---
Author Name Unknown Organization [facility] Address [address] [place] [address] Phone [phone] Care Team Providers Care Machine Deburrer Name Role Phone Francisco Cisse MD Primary Care Provider + Encounter Details Date Type Department Care Team (Latest Contact Info) Description 12/12/2023 2:15 PM EST - 12/12/2023 11:59 PM EST Hospital Encounter Radiology Film [facility] [address] [place] [address] Discharge Disposition: Home - Self Care Allergies No known active allergiesdocumented as of this encounter (statuses as of 01/17/2024) Medications Medication Sig Dispensed Refills Start Date [...] as of this encounter (statuses as of 01/17/2024) Active Problems Problem Noted Date Diagnosed Date [...] due to stage 3a chronic kidney disease 05 /10/2021 Overview: Per CKD protocol History of prostate [...] as of this encounter (statuses as of 01/17/2024) Resolved Problems Problem Noted Date Diagnosed Date [...] as of this encounter (statuses as of 01/17/2024) Immunizations Name Administration Dates Next Due COVID-19 mRNA, LNP-s, No Pre serve, 2-Dose Series ([employer]) 03/08/2021,02/15/2021 HepA Inact/HepB Recomb>=18yrs old 12/04/2019,04/2019,05/20/2019 [...] 8:40 AM EST Laboratory Lab Mobile Phlebotomy [place] [address] [place] [address] [facility], [facility] Mobile Home Draw [address] [place] [address] 01/21/2024 10:15 AM EST Cardiac Studies Cardiac Studies, [facility] 132 [facility] J[place]US [address] 01/30/2024 12:42 PM EST Hospital Encounter OR [facility], Operating Room, [facility] - 4th Floor [address] [place] [address] Frank Peraza MD [address] [place] [address] 01/30/2024 12:42 PM EST - 01/30/2024 1:44 PM EST Surgery OR [facility], Operating Room, [facility] Floor [address] [address] [place] [address] Frank Peraza MD [address] [place] [address] CYSTOURETHROSCOPY WITH FULGURATION MEDIUM BLADDER TUMOR 02/04/2024 8:40 AM EST Laboratory Lab Mobile Phlebotomy [place] [address] [place] [address] [facility] Mobile Home Draw [address] [place] [address] 02/07/2024 11:00 AM EST Telemedicine [facility] [place], [address] [address] Aidee Miller PA-C [address] [place] [address] Kriss Mays, [facility] Dishwasher Preparer [address] [place] [address] 02/14/2024 2:45 PM EDT Office Visit UrologLynnette Solares [address] [place] [address] Frank Peraza MD [address] [place] [address] 02/18/2024 8:40 AM EDT Laboratory Lab Mobile Phlebotomy [place] [address] [place] [address] [facility], [facility] Mobile Home Draw [address] [place] [address] 03/03/2024 8:40 AM EDT Laboratory Lab Mobile Phlebotomy [place] [address] [place] [address] Gm, [facility] Mobile Home Draw [address] [place] [address] 03/13/2024 2:00 PM EDT Office Visit Dermatology [facility] [address] [place] [address] Francisco Watson MD [address] [place] [address] 03/17/2024 8:40 AM EDT Laboratory Lab Mobile Phlebotomy [place] [address] [place] [address] Gm, [facility] Mobile Home Draw [address] [place] [address] 03/24/2024 2:30 PM EDT Office Visit Hematology/Oncolo gy [facility] 200 [place] [address] Ayaka Tatum CRNP [address] [place] [address] 03/30/2024 12:00 PM EDT Office Visit Family Practice [facility] [address] [place] [address] Kristen Vences DO [address] [place] [address] 03/31/2024 8:40 AM EDT Laboratory Lab Mobile Phlebotomy [place] [address] [place] [address] Gm, [facility] Mobile Home Draw [address] [place] [address] 04/07/2024 10:00 AM EDT Office Visit Gastroenterology, [facility] [address] [place] [address] Lamar Tatum CRNP [address] [place] [address] 04/14/2024 8:40 AM EDT Laboratory Lab Mobile Phlebotomy [place] [address] [place] [address] [facility], [facility] Mobile Home Draw [address] [place] [address] 04/28/2024 8:40 AM EDT Laboratory Lab Mobile Phlebotomy [facility] [address] [place] [address] [facility], [facility] Mobile Home Draw [address] [place] [address] 05/12/2024 8:40 AM EDT Laboratory Lab Mobile Phlebotomy [facility] [address] [place] [address] [facility], [facility] Mobile Home Draw [address] [place] [address] 05/26/2024 8:40 AM EDT Laboratory Lab Mobile Phlebotomy [facility] [address] [place] [address] [facility], [facility] Mobile Home Draw [address] [place] [address] 06/09/2024 8:40 AM EDT Laboratory Lab Mobile Phlebotomy [facility] [address] [place] [address] [facility], [facility] Mobile Home Draw [address] [place] [address] 06/23/2024 8:40 AM EDT Laboratory Lab Mobile Phlebotomy [facility] [address] [place] [address] [facility], [facility] Draw [address] [place] [address] 07/07/2024 8:40 AM EDT Laboratory Lab Mobile Phlebotomy [facility] [address] [place] [address] [facility], [facility] Home Draw [address] [place] [address] 07/21/2024 8:40 AM EDT Laboratory Lab Mobile Phlebotomy [facility] [address] [place] [address] [facility], [facility] Draw [address] [place] [address] 08/04/2024 8:40 AM EDT Laboratory Lab Mobile Phlebotomy [facility] [address] [place] [address] [facility], [facility] Mobile Home Draw [address] [place] [address] 08/18/2024 8:40 AM EDT Laboratory Lab Mobile Phlebotomy [facility] [address] [place] [address] [facility], [facility] Mobile Home Draw [address] [place] [address] 08/20/2024 10:15 AM EDT Office Visit Ophthalmology, [facility] [address] [place] [address] Cody Gonzalez, [address] [place] [address] 09/01/2024 8:40 AM EDT Laboratory Lab Mobile Phlebotomy [place] [address] [place] [address] [facility], [facility] Mobile Home Draw [address] [place] [address] 09/15/2024 8:40 AM EDT Laboratory Lab Mobile Phlebotomy [place] [address] [place] [address] [facility], [facility] Mobile Home Draw [address] [place] [address] Scheduled Procedures Name Priority Associated Diagnoses Date/Ti [...] Additional history exists CKD PHOS USE SMARTSET 57351 01/28/202401/03, 07/26/2022, 12/05/2021, Additional history exists Diabetic Foot Exam 03/06/2024 03/06/2023, 0 01/03/2022, 03/02/2021, Additional history exists HbA1c 05/28/2024 11/27/2023, 05/03, 01/28/2023, Additional history exists GFR 06/22/2024 12/23/2023, 11/01, 08/30/2023, Additional history exists Albumin/Creatinine Ratio 07/12/2024 023, 10/01/2022, 09/11/2021, Additional history exists COLONOSCOPY-ANNUAL AGES 18-100 08/09/2024 08/09/2023, 11/07/2022, 11/07/2022, Additional history exists CKD HGB USE SMARTSET 01208 01/07/202501/07, 01/07/2024, 12/26/2023, Additional history exists Lipid [...] this encounter Medical Devices Implanted Type Area Dial Refinisher Device Identifier Shelf Expiration Date Model / Serial / Lot Clareon Iol Aspheric Hydrophobic Acrylic Iol Implanted:Qty: 1 on 04/23/2023 by Cody Gonzalez DO at OR [facility] Lens Left: Eye 11/12/2025 CNA0T0 / [id number] / Viatorr Tips Endoprosthesis 8-10 Mm X 8cm / 2cm Implanted:Qty: 1 on 10/07/2020 by Go Alvarado MD at [facility] Right: Abdomen 03/03/2023 [id number] / / [id number] Description:Viatorr TIPS End oprosthesis 8-10 mm x 8cm / 2cm, Manufactored by [employer] Syr Pf 2ml Embospheres 100-300 - [id number] Implanted:Qty: 1 on 04/18/2021 by Kevin Lim DO at OR [facility] Left: Abdomen [employer] [id number] 11/25/2023 S220GH / / [id number] Lipiodol Injection - [id number] Implanted:Qty: 1 on 03/28/2022 at [facility] [employer] 03/01/2023 [id number] 01-2 / / [id number] Syr Pf 2ml Embospheres 100-300 - [id number] Implanted:Qty: 1 on 03/28/2022 at [facility] [employer] [id number] 08/31/2024 S220GH / / [id number] -[id number] Clareon Iol Aspheric Hydrophobic Acrylic Iol Implanted:Qty: 1 on 04/02/2023 by Cody Gonzalez DO at OR [facility] Right: Eye JAZMIN 11/12/2025 CNA0T0 / [id number] / documented as of this encounter Procedures Procedure Name Priority Date/Time Associated Diagnosis Comments RADIOLOGY EXAM - CT (IMAGES ONLY, NO REPORT) Routine 12/12/2023 2:15 PM EST documented in this encounter Results * RADIOLOGY EXAM - CT (IMAGES ONLY, NO REPORT) (12/12/2023 2:15 PM EST) 12/12/2023 2:14 PM EST Narrative Scheduling, Silent - 01/16/2024 10:12 AM EST This is an imaging study not interpreted or resulted by a [facility]. Francisco Cisse MD RAD CT documented in this encounter Advance Directives Documents on File Type Date Recorded Patient Plating Inspector Expl anation Advance Directives and Living Will 12/11/2022 ADVANCE DIRECTIVE / LIVING WILL LIVING WILL Power of Casing Cleaner 12/11/2022 POWER OF A TTORNEY Latest Code [...] patient have Health Care Power of Casing Cleaner? No Full Code 07/22/2014 9:56 PM 07/24/2014 8:18 PM This order reflects the patients wishes and were consensually agreed upon. Question Answer Comments Discussion of Advance Directives occurred with: Patient Does the patient have a Living Will? No Does the patient have Health Care Power of Casing Cleaner? No Care Teams Machine Deburrer Relationship Specialty Start Date End Date Francisco Cisse MD 200 [facility] [place] [address] PCP - General Internal Medicine 09/04/21 documented as of this encounter
--- OUTSIDE RECORDS SUMMARY | 2024-01-25 17:08 | External Medical Summary | Summary of Care ---
Author Name Unknown Organization [facility] Address [address] [facility] [address] Phone [phone] Care Team Providers Care Warehouse Logistics Manager Name Role Phone Francisco Cisse MD Primary Care Provider + Reason for Visit * Reason Comments Outpatient Testing Encounter Details Date Type Department Care Team (Late st Contact Info) Description 01/17/2024 1:00 PM EST Laboratory Laboratory, [facility] [address] [facility] [place] [phone] [facility] 132 [facility] [place]ANN [address] Iron deficiency anemia, unspecified iron deficiency anemia type; Pancytopenia (HCC); GAVE (gastric antral vascular ectasia); Liver cell [...] mRNA, LNP-s, No Pre serve, 2-Dose Series ([employer]) 03/08/2021,02/15/2021 HepA Inact/HepB Recomb>=18yrs old 12/04/2019,04/2019,05/20/2019 11/19/2019 PPD 06/18/2017, 3,01/09/2012,06/2011 Pneumococcal Conjugate Vacc, 13 Valent (Prevnar) 05/01/2017 Pneumococcal Polysaccharide PPV23 (Pneumovax) 08/28/2022,10/25/2015,07/14/2012 Season Influenza, Quad, PF, Adjuvanted, 65+ Yrs, IM (FLUAD) 10/07/2020(Deferred: Patient Refused - pt says he already had his shot last month at [facility] Handy Lyons and Mckinley Cobian made [...] 8:40 AM EST Laboratory Lab Mobile [facility]bot[facility] [address] [place] [address] [facility] Draw [address] [place] [address] 01/21/2024 10:15 AM EST Cardiac Studies Cardiac Studies, [address] [address] 01/30/2024 12:42 PM EST Hospital Encounter OR [facility], Operating Room, [facility] - 4th Floor [address] [place] [address] Frank Peraza MD [address] [place] [address] 01/30/2024 12:42 PM EST - 01/30/2024 1:44 PM EST Surgery OR [facility], Operating Room, [facility] - 4th Floor [address] [place] [address] Frank Peraza MD [address] [place] [address] CYSTOURETHROSCOPY WITH FULGURATION MEDIUM BLADDER TUMOR 02/04/2024 8:40 AM EST Laboratory Lab Mobile Phlebotomy [facility] [address] [place] [address] [facility] Draw [address] [place] [address] 02/07/2024 11:00 AM EST Telemedicine [facility] [place] [address] [place] [address] Aidee Miller PA-C [address] [place] [address] Kriss Mays, Community Health Energy Technician [address] [place] [address] 02/14/2024 2:45 PM EDT Office Visit Urology Lynnette Fitzpatrick [address] [place] [address] Frank Peraza MD [address] [place] [address] 02/18/2024 8:40 AM EDT Laboratory Lab Mobile Phlebotomy [facility] [address] [place] [address] [facility] [address] [place] [address] 03/03/2024 8:40 AM EDT Laboratory Lab Mobile Phlebotomy [facility] [address] [place] [address] [facility] [address] [place] [address] 03/13/2024 2:00 PM EDT [facility] [address] [place] [address] Francisco Watson MD [address] [place] [address] 03/17/2024 8:40 AM EDT Laboratory Lab Mobile Phlebotomy [facility] [address] [place] [address] [facility] [address] [place] [address] 03/24/2024 2:30 PM EDT Office Visit [facility]ematology[facility] [address] [place] [address] Ayaka Tatum CRNP [address] [place] [address] 03/30/2024 12:00 PM EDT Office Visit Family Practice [facility] [address] [place] [address] Kristen Vences DO [address] [place] [address] 03/31/2024 8:40 AM EDT Laboratory Lab Mobile Phlebotomy [facility] [address] [place] [address] [facility] [address] [place] [address] 04/07/2024 10:00 AM EDT Office Visit Gastroenterology, [facility] [address] [place] [address] Lamar Tatum CRNP [address] [place] [address] 04/14/2024 8:40 AM EDT Laboratory Lab Mobile Phlebotomy [facility] [address] [place] [address] [facility] [address] [place] [address] 04/28/2024 8:40 AM EDT Laboratory Lab [facility] Ph[facility] [address] [place] [address] [facility] Draw [address] [place] [address] 05/12/2024 8:40 AM EDT Laboratory Lab Mobile Phle[facility] [address] [place] [address] [facility] [address] [place] [address] 05/26/2024 8:40 AM EDT Laboratory Lab Mobile Ph[facility] [address] [place] [address] [facility] [address] [place] [address] 06/09/2024 8:40 AM EDT Laboratory Lab Mobile Ph[facility] [address] [place] [address] [facility] [address] [place] [address] 06/23/2024 8:40 AM EDT Laboratory Lab [facility] Ph[facility] [address] [place] [address] [facility] [address] [place] [address] 07/07/2024 8:40 AM EDT Laboratory Lab [facility] Ph[facility] [address] [place] [address] [facility] [address] [place] [address] 07/21/2024 8:40 AM EDT Laboratory Lab [facility] Ph[facility] [address] [place] [address] [facility] [address] [place] [address] 08/04/2024 8:40 AM EDT Laboratory Lab Mobile Phlebotomy [facility] [address] [place] [address] [facility] [address] [place] [address] 08/18/2024 8:40 AM EDT Laboratory Lab Mobile Phlebotomy [facility] [address] [place] [address] [facility] [address] [place] [address] 08/20/2024 10:15 AM EDT Office Visit Ophthalmology, [address] [address] Cody Gonzalez, [address] [place] [address] 09/01/2024 8:40 AM EDT Laboratory Lab Mobile Phlebotomy [facility] [address] [place] [address] [facility] [address] [place] [address] 09/15/2024 8:40 AM EDT Laboratory Lab Mobile Phlebotomy [facility] [address] [place] [address] [facility] [address] [place] [address] Pending Results Name Type Priority Associated Diagnoses Date /Time IRON SCREEN, INCLUDING TIBC Lab STAT Iron deficiency anemia, unspecified iron deficiency anemia type 01/17/2024 1:02 PM EST FERRITIN Lab STAT Iron deficiency anemia, unspecified iron deficiency anemia type 01/17/2024 1:02 PM EST COMPREHENSIVE METABOLIC PANEL Lab STAT Pancytopenia (HCC) Iron deficiency anemia, unspecified iron deficiency anemia type GAVE (gastric antral vascular ectasia) Liver cell carcinoma (HCC) Portal vein thrombosis Prostate cancer (HCC) 01/17/2024 1:02 PM EST ALPHA-FETOPROTEIN TUMOR MARKER Lab STAT Pancytopenia (HCC) Iron deficiency anemia, unspecified iron deficiency anemia type GAVE (gastric antral vascular ectasia) Liver cell carcinoma (HCC) Portal vein thrombosis Prostate cancer (HCC) 01/17/2024 1:02 PM EST PSA Lab STAT Pancytopenia (HCC) Iron deficiency anemia, unspecified iron deficiency anemia type GAVE (gastric antral vascular ectasia) Liver cell carcinoma (HCC) Portal vein thrombosis Prostate cancer (HCC) 01/17/2024 1:02 PM EST Scheduled Procedures Name Priority Associated [...] Additional history exists CKD PHOS USE SMARTSET 53256 01/28/202401/03, 07/26/2022, 12/05/2021, Additional history exists Diabetic Foot Exam 03/06/2024 03/06/2023, 0 01/03/2022, 03/02/2021, Additional history exists HbA1c 05/28/2024 11/27/2023, 05/03, 01/28/2023, Additional history exists GFR 06/22/2024 12/23/2023, 11/01, 08/30/2023, Additional history exists Albumin/Creatinine Ratio 07/12/2024 023, 10/01/2022, 09/11/2021, Additional history exists COLONOSCOPY-ANNUAL AGES 18-100 08/09/2024 08/09/2023, 11/07/2022, 11/07/2022, Additional history exists CKD HGB USE SMARTSET 88697 01/07/202501/07, 01/07/2024, 12/26/2023, Additional history exists Lipid [...] this encounter Medical Devices Implanted Type Area Crayon Painter Device Identifier Shelf Expiration Date Model / Serial / Lot Clareon Iol Aspheric Hydrophobic Acrylic Iol Implanted:Qty: 1 on 04/23/2023 by Cody Gonzalez DO at OR [facility] Lens Left: Eye 11/12/2025 CNA0T0 / [id number] / Viatorr Tips Endoprosthesis 8-10 Mm X 8cm / 2cm Implanted:Qty: 1 on 10/07/2020 by Go Alvarado MD at [facility] Right: Abdomen 03/03/2023 [id number] / / [id number] Description:Viatorr TIPS End oprosthesis 8-10 mm x 8cm / 2cm, Manufactored by [employer] Syr Pf 2ml Embospheres 100-300 - [id number] Implanted:Qty: 1 on 04/18/2021 by Kevin Lim DO at OR [facility] Left: Abdomen [employer] [id number] 11/25/2023 S220GH / / [id number] Lipiodol Injection - [id number] Implanted:Qty: 1 on 03/28/2022 at [facility] [employer] 03/01/2023 [id number] 01-2 / [id number] Syr Pf 2ml Embospheres 100-300 - [id number] Implanted:Qty: 1 on 03/28/2022 at [facility] [employer] [id number] 08/31/2024 S220GH / / [id number] -[id number] Clareon Iol Aspheric Hydrophobic Acrylic Iol Implanted:Qty: 1 on 04/02/2023 by Cody Gonzalez DO at OR [facility] Right: Eye JAZMIN 11/12/2025 CNA0T0 / [id number] / documented as of this encounter Visit Diagnoses Diagnosis Hematuria, gross- Primary Gross hematuria Abnormal cystoscopy Other nonspecific abnormal finding Iron deficiency anemia, unspecified iron deficiency anemia type Pancytopenia (HCC) Other pancytopenia GAVE (gastric antral vascular ectasia) Angiodysplasia of stomach and duodenum (without mention of hemorrhage) Liver cell carcinoma (HCC) Malignant neoplasm of liver, primary Portal vein thrombosis Prostate cancer (HCC) Malignant neoplasm of prostate Hematuria, gross Gross hematuria Abnormal cystoscopy Other nonspecific abnormal finding documented in this encounter Advance Directives Documents on File Type Date Recorded Patient Bee Producer Expl anation Advance Directives and Living Will 12/11/2022 ADVANCE DIRECTIVE / LIVING WILL LIVING WILL Power of Acid Conditioning Worker 12/11/2022 POWER OF A TTORNEY Latest [...] the patient have Health Care Power of Acid Conditioning Worker? No Full Code 07/22/2014 9:56 PM 07/24/2014 8:18 PM This order reflects the patients wishes and were consensually agreed upon. Question Answer Comments Discussion of Advance Directives occurred with: Patient Does the patient have a Living Will? No Does the patient have Health Care Power of Acid Conditioning Worker? No Care Teams Warehouse Logistics Manager Relationship Specialty Start Date End Date Francisco Cisse MD [address] [place] [address] PCP - General Internal Medicine 09/04/21 documented as of this encounter
--- OUTSIDE RECORDS SUMMARY | 2024-01-25 17:08 | External Medical Summary | Summary of Care ---
Author Name Unknown Organization [facility] Address [address] [place] [address] Phone [phone] Care Team Providers Care Lace Weaver Name Role Phone Francisco Cisse MD Primary Care Provider + Reason for Visit * Reason Onset Date Comments Abnormal Lab Results 01/09/2024 CBCD Encounter Details Date Type Department Care Team (Late st Contact Info) Description 01/09/2024 Telephone Hematology/Oncology [facility] [place] 200 [facility] [address] Zulay Barbosa CRNP 400 [facility] [place] [address] Abnormal Lab Results (CBCD) Allergies No known active allergiesdocumented as of this encounter (statuses as of 01/19/2024) Medications Medication Sig Dispensed Refills Start Date [...] 2.5 mg NEBULIZER PRN 03/18/2023 03/17/2024 Act orderick documented as of this encounter (statuses as of 01/19/2024) Active Problems Problem Noted Date Diagnosed Date [...] as of this encounter (statuses as of 01/19/2024) Resolved Problems Problem Noted Date Diagnosed Date [...] as of this encounter (statuses as of 01/19/2024) Immunizations Name Administration Dates Next Due COVID-19 mRNA, LNP-s, No Pre serve, 2-Dose Series ([employer]) 03/08/2021,02/15/2021 HepA Inact/HepB Recomb>=18yrs old 12/04/2019,04/2019,05/20/2019 11/19/2019 PPD 06/18/2017, 3,01/09/2012,0306/2011 Pneumococcal Conjugate Vacc, 13 Valent (Prevnar) 05/01/2017 Pneumococcal Polysaccharide PPV23 (Pneumovax) 08/28/2022,10/25/2015,07/14/2012 Season Influenza, Quad, PF, Adjuvanted, 65+ Yrs, IM (FLUAD) 10/07/2020(Deferred: Patient Refused - pt says he already had his shot last month at [facility] Handy Lyons and [...] encounter Miscellaneous Notes * Addendum Note - Zulay Barbosa CRNP [...] AM EST Laboratory Lab Mobile Phlebotomy [facility] [address] [place] [address] [facility] Mobile Home Draw [address] [place] [address] 01/21/2024 10:15 AM EST Cardiac Studies Cardiac Studies, [facility] 132 [facility] J[place] MANN [address] 01/30/2024 12:42 PM EST Hospital Encounter OR [facility], Operating Room, [facility] - 4th Floor 400 [facility] [place] [address] Frank Peraza MD 27 [facility] [address] [place] [address] 01/30/2024 12:42 PM EST - 01/30/2024 1:44 PM EST Surgery OR [facility], Operating Room, [facility] - 4th Floor [address] [place] Becerra [address] Frank Peraza MD [address] [place] [address] CYSTOURETHROSCOPY WITH FULGURATION MEDIUM BLADDER TUMOR 02/04/2024 8:40 AM EST Laboratory Lab Mobile Phlebotomy [facility] [address] [place] [address] [facility] Mobile [facility] Draw [address] [place] [address] 02/07/2024 11:00 AM EST Telemedicine [facility], [place] [address] [place] [address] Aidee Miller PA-C [address] [place] [address] Kriss Mays, Community Health Academy Director [address] [place] [address] 02/14/2024 2:45 PM EDT Office Visit Urology Lynnette Fitzpatrick [address] [place] [address] Frank Peraza MD [address] [place] [address] 02/18/2024 8:40 AM EDT Laboratory Lab Mobile Phlebotomy [facility] [address] [place] [address] [facility] Mobile Home Draw [address] [place] [address] 03/03/2024 8:40 AM EDT Laboratory Lab Mobile Phlebotomy [facility] [address] [place] [address] [facility] Mobile [facility] Draw [address] [place] [address] 03/13/2024 2:00 PM EDT Office Visit Dermatology [facility] 200 [facility] [place] [address] Francisco Watson MD 200 [facility] [place] [address] 03/17/2024 8:40 AM EDT Laboratory Lab Mobile Phlebotomy [facility] [address] [place] [address] [facility] Mobile Home Draw [address] [place] [address] 03/24/2024 2:30 PM EDT Office Visit Hematology/Oncolo gy [facility] [address] [place] [address] Zulay Barbosa CRNP 400 [place] [address] 03/30/2024 12:00 PM EDT Office Visit Family Practice [facility] [address] [place] [address] Kristen Vences DO 132 [place] [address] 03/31/2024 8:40 AM EDT Laboratory Lab Mobile Phlebotomy [facility] [address] [place] [address] [facility] Mobile Home Draw [address] [place] [address] 04/07/2024 10:00 AM EDT Office Visit Gastroenterology, [facility] [address] [place] [address] Lamar Barbosa CRNP [address] [place] [address] 04/14/2024 8:40 AM EDT Laboratory Lab Mobile Phlebotomy [facility] [address] [place] [address] [facility] Mobile Home Draw [address] [place] [address] 04/28/2024 8:40 AM EDT Laboratory Lab Mobile Phlebotomy [facility] [address] [place] [address] [facility], [facility] Draw [address] [place] [address] 05/12/2024 8:40 AM EDT Laboratory Lab Mobile Phlebotomy [facility] [address] [place] [address] [facility], [facility] Draw [address] [place] [address] 05/26/2024 8:40 AM EDT Laboratory Lab Mobile Phlebotomy [facility] [address] [place] [address] [facility] [address] [place] [address] 06/09/2024 8:40 AM EDT Laboratory Lab Mobile Phlebotomy [facility] [address] [place] [address] [facility], [facility] Draw [address] [place] [address] 06/23/2024 8:40 AM EDT Laboratory Lab Mobile Phlebotomy [facility] [address] [place] [address] [facility] [address] [place] [address] 07/07/2024 8:40 AM EDT Laboratory Lab Mobile Phlebotomy [facility] [address] [place] [address] [facility] Draw [address] [place] [address] 07/21/2024 8:40 AM EDT Laboratory Lab Mobile Phlebotomy [facility] [address] [place] [address] [facility], [facility] Draw [address] [place] [address] 08/04/2024 8:40 AM EDT Laboratory Lab Mobile Phlebotomy [facility] [address] [place] [address] [facility], [facility] Draw [address] [place] [address] 08/18/2024 8:40 AM EDT Laboratory Lab Mobile Phlebotomy [facility] [address] [place] [address] [facility], [facility] Draw [address] [place] [address] 08/20/2024 10:15 AM EDT Office Visit Ophthalmology, [address] [address] Cody Gonzalez, [address] [address] 09/01/2024 8:40 AM EDT Laboratory Lab Mobile Phlebotomy [facility] [address] [place] [address] [facility], [facility] [address] [place] [address] 09/15/2024 8:40 AM EDT Laboratory Lab Mobile Phlebotomy [facility] [address] [place] [address] [facility], [facility] Draw [address] [place], [place] [address] Scheduled Procedures Name Priority Associated Diagnoses Date/Ti [...] Additional history exists CKD PHOS USE SMARTSET 20503 01/28/202401/03, 07/26/2022, 12/05/2021, Additional history exists Diabetic Foot Exam 03/06/2024 03/06/2023, 0 01/03/2022, 03/02/2021, Additional history exists HbA1c 05/28/2024 11/27/2023, 05/03, 01/28/2023, Additional history exists Albumin/Creatinine Ratio 07/12/2024 023, 10/01/2022, 09/11/2021, Additional history exists GFR 07/17/2024 01/17/2024, 12/03, 11/16/2023, Additional history exists COLONOSCOPY-ANNUAL AGES 18-100 08/09/2024 08/09/2023, 11/07/2022, 11/07/2022, Additional history exists CKD HGB USE SMARTSET 60649 01/07/202501/07, 01/07/2024, 12/26/2023, Additional history exists Lipid [...] this encounter Medical Devices Implanted Type Area Cpr Instructor Device Identifier Shelf Expiration Date Model / Serial / Lot Clareon Iol Aspheric Hydrophobic Acrylic Iol Implanted:Qty: 1 on 04/23/2023 by Cody Gonzalez DO at OR [facility] Lens Left: Eye 11/12/2025 CNA0T0 / [id number] / Viatorr Tips Endoprosthesis 8-10 Mm X 8cm / 2cm Implanted:Qty: 1 on 10/07/2020 by Go Alvarado MD at [facility] Right: Abdomen 03/03/2023 [id number] / / [id number] Description:Viatorr TIPS End oprosthesis 8-10 mm x 8cm / 2cm, Manufactored by [employer] Syr Pf 2ml Embospheres 100-300 - [id number] Implanted:Qty: 1 on 04/18/2021 by Kevin Lim DO at OR [facility] Left: Abdomen [employer] [id number] 11/25/2023 S220GH / / [id number] Lipiodol Injection - [id number] Implanted:Qty: 1 on 03/28/2022 at [facility] [employer] 03/01/2023 09305-18 01-2 / / [id number] Syr Pf [facility]-300 - [id number] Implanted:Qty: 1 on 03/28/2022 at [facility] [employer] [id number] 08/31/2024 S220GH / / [id number] -[id number] Clareon Iol Aspheric Hydrophobic Acrylic Iol Implanted:Qty: 1 on 04/02/2023 by Cody Gonzalez DO at OR 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 No Full Code 07/22/2014 9:56 PM 07/24/2014 8:18 PM This order reflects the patients wishes and were consensually agreed upon. Question Answer Comments Discussion of Advance Directives occurred with: Patient Does the patient have a Living Will? No Does the patient have Health Care Power of Electronic Instrument Trades Worker? No Care Teams Lace Weaver Relationship Specialty Start Date End Date Francisco Cisse MD 200 [facility] [place] [address] PCP - General Internal Medicine 09/04/21 documented as of this encounter
--- OUTSIDE RECORDS SUMMARY | 2024-01-25 17:08 | External Medical Summary | Summary of Care ---
Author Name Unknown Organization [facility] Address 100 [facility] [place] [address] Phone [phone] Care Team Providers Care Coating Mixer Supervisor Name Role Phone Francisco Cisse MD Primary Care Provider + Reason for Visit * Reason Onset Date Comments Abnormal Lab Results 01/09/2024 CBCD Encounter Details Date Type Department Care Team (Late st Contact Info) Description 01/09/2024 Telephone Hematology/Oncology [facility] [place] 200 [facility] [place] [phone] Zulay Barbosa CRNP 400 [facility] [place] [address] Abnormal Lab Results (CBCD) Allergies No known active allergiesdocumented as of this encounter (statuses as of 01/21/2024) Medications Medication Sig Dispensed Refills Start Date End Date Status Tylenol 325 MG Oral Capsule (Acetaminophen) Take 650 mg by mouth every 8 hours as needed for Pain (fever). 0 Active OneTouch Verio In Vitro Strip (Glucose Blood)Indications:Ty pe 2 diabetes mellitus with hemoglobin A1c goal of less than 7.0% ([facility]) Use to test blood sugars 3 [...] as of this encounter (statuses as of 01/21/2024) Active Problems Problem Noted Date Diagnosed Date [...] as of this encounter (statuses as of 01/21/2024) Resolved Problems Problem Noted Date Diagnosed Date [...] as of this encounter (statuses as of 01/21/2024) Immunizations Name Administration Dates Next Due COVID-19 mRNA, LNP-s, No Pre serve, 2-Dose Series (JAYS) 03/08/2021,02/15/2021 HepA Inact/HepB Recomb>=18yrs old 12/04/2019,04/2019,05/20/2019 11/19/2019 PPD 06/18/2017, 3,01/09/2012,03/06/2011 Pneumococcal Conjugate Vacc, 13 Valent (Prevnar) 05/01/2017 Pneumococcal Polysaccharide PPV23 (Pneumovax) 08/28/2022,10/25/2015,07/14/2012 Season Influenza, Quad, PF, Adjuvanted, 65+ Yrs, IM (FLUAD) 10/07/2020(Deferred: Patient Refused - pt says he already had his shot last month at [facility] Handy Lyons and Mckinley Cobian made [...] AM EST Called patient, he verbalized understanding. [place] plan built for monoferric and routed for signature. Waiting for auth. * Addendum Note - Zulay aBrbosa CRNP - 01/19/2024 6:45 PM ESTAddended by: [...] that he is planning on going to [place] tomorrow afternoon- his son works until noon [...] 01/30/2024 12:42 PM EST Hospital Encounter OR [facility], Operating Room, [facility] - 4th Floor [address] [place] [address] Frank Peraza MD [address] [place] [address] [place] [address] 01/30/2024 12:42 PM EST - 01/30/2024 1:44 PM EST Surgery OR [facility], Operating Room, [facility] - 4th Floor 400 [facility] [place] [address] Frank Peraza MD [address] [place] [address] [place] [address] CYSTOURETHROSCOPY WITH FULGURATION MEDIUM BLADDER TUMOR 02/04/2024 8:40 AM EST Laboratory Lab Mobile Phlebotomy [facility] [address] [place] [address] [facility] [place] [facility] [place], [facility] Mobile Home Draw [address] [place] [address] 02/07/2024 11:00 AM EST Telemedicine [facility] [place] [address] [place] [address] Aidee Miller PA-C [address] [place] [address] Kriss Mays, Community [facility] Warehouse Team Member [address] [place] [address] 02/14/2024 2:45 PM EDT Office Visit Urology Lynnetet Fitzpatrick [address] [place] [address] [place] [address] Frank Peraza MD [address] [place] [address] [place] [address] 02/18/2024 8:40 AM EDT Laboratory Lab Mobile Phlebotomy [facility] [address] [place] [address] Gm, [facility] Mobile Home Draw [address] [place] [address] 03/03/2024 8:40 AM EDT Laboratory Lab Mobile Phlebotomy [facility] [address] [place] [address] Gm, Gml Mobile Home Draw [address] [place] [address] 03/13/2024 2:00 PM EDT Office Visit Dermatology [facility] 200 [facility] [place] [address] Francisco Watson MD 200 [facility] [place] [address] 03/17/2024 8:40 AM EDT Laboratory Lab Mobile Phlebotomy [facility] [address] [place] [address] [facility] [place] [facility] [place], [facility] Mobile Home Draw [address] [place] [address] 03/24/2024 2:30 PM EDT Office Visit Hematology/Oncolo gy [facility] [address] [place] [phone] Zulay Barbosa CRNP [address] [place] [address] 03/30/2024 12:00 PM EDT Office Visit [facility] [address] [facility] [place] [address] Kristen Vences DO [address] [place] [address] 03/31/2024 8:40 AM EDT Laboratory Lab Mobile Phlebotomy [facility] [address] [place] [address] [facility] [place] [facility] [place], [facility] Mobile Home Draw [address] [place] [address] 04/07/2024 10:00 AM EDT Office Visit Gastroenterology[facility] [address] [place] [address] [place] Barbosa CRNP [address] [facility] [place] [address] 04/14/2024 8:40 AM EDT Laboratory Lab Mobile Phlebotomy [facility] [address] [place] [address] Gmc, Gml Mobile Home Draw [address] [place] [address] 04/28/2024 8:40 AM EDT Laboratory Lab Mobile Phlebotomy [facility] [address] [place] [address] Gmc, Gml Mobile Home Draw [address] [place] [address] 05/12/2024 8:40 AM EDT Laboratory Lab Mobile Phlebotomy [facility] [address] [place] [address] Gmc, Gml Mobile Home Draw [address] [place] [address] 05/26/2024 8:40 AM EDT Laboratory Lab Mobile Phlebotomy [facility] [address] [place] [address] Gmc, Gml Mobile Home Draw [address] [place] [address] 06/09/2024 8:40 AM EDT Laboratory Lab Mobile Phlebotomy [facility] [address] [place] [address] Gmc, Gml Mobile Home Draw [address] [place] [address] 06/23/2024 8:40 AM EDT Laboratory Lab Mobile Phlebotomy [facility] [address] [place] [address] Gmc, Gml Mobile Home Draw [address] [place] [address] 07/07/2024 8:40 AM EDT Laboratory Lab Mobile Phlebotomy [facility] [address] [place] [address] Gmc, Gml Mobile Home Draw [address] [place] [address] 07/21/2024 8:40 AM EDT Laboratory Lab Mobile Phlebotomy [facility] [address] [place] [address] Gmc, Gml Mobile Home Draw [address] [place] [address] 08/04/2024 8:40 AM EDT Laboratory Lab Mobile Phlebotomy [facility] [address] [place] [address] Gmc, Gml Mobile Home Draw [address] [place] [address] 08/18/2024 8:40 AM EDT Laboratory Lab Mobile Phlebotomy [facility] [address] [place] [address] Gmc, Gml Mobile Home Draw [address] [place] [address] 08/20/2024 10:15 AM EDT Office Visit Ophthalmology, [address] [address] Cody Gonzalez, [address] [place], [place] [address] [address] 09/01/2024 8:40 AM EDT Laboratory Lab Mobile Phlebotomy C [address] [place] [address] Gmc, Gml Mobile Home Draw [address] [place] [address] 09/15/2024 8:40 AM EDT Laboratory Lab Mobile Phlebotomy [facility] [address] [place] [address] [facility] [place] [facility] [place], [facility] Mobile Home Draw [address] [place] [address] Scheduled Procedures Name Priority Associated Diagnoses Date/Ti [...] Additional history exists CKD PHOS USE SMARTSET 92017 01/28/202401/03, 07/26/2022, 12/05/2021, Additional history exists Diabetic Foot Exam 03/06/2024 03/06/2023, 0 01/03/2022, 03/02/2021, Additional history exists HbA1c 05/28/2024 11/27/2023, 05/03, 01/28/2023, Additional history exists Albumin/Creatinine Ratio 07/12/2024 023, 10/01/2022, 09/11/2021, Additional history exists GFR 07/17/2024 01/17/2024, 12/03, 11/16/2023, Additional history exists COLONOSCOPY-ANNUAL AGES 18-100 08/09/2024 08/09/2023, 11/07/2022, 11/07/2022, Additional history exists CKD HGB USE SMARTSET 05535 01/21/202501/21, 01/21/2024, 01/07/2024, Additional history exists Lipid [...] this encounter Medical Devices Implanted Type Area Claim Adjuster Device Identifier Shelf Expiration Date Model / Serial / Lot Clareon Iol Aspheric Hydrophobic Acrylic Iol Implanted:Qty: 1 on 04/23/2023 by Cody Gonzalez DO at OR [facility] Lens Left: Eye 11/12/2025 CNA0T0 / [id number] / Viatorr Tips Endoprosthesis 8-10 Mm X 8cm / 2cm Implanted:Qty: 1 on 10/07/2020 by Go Alvarado MD at [facility] Right: Abdomen 03/03/2023 [id number] / / [id number] Description:Viatorr TIPS End oprosthesis 8-10 mm x 8cm / 2cm, Manufactored by [employer] Syr Pf 2ml Embospheres 100-300 - [id number] Implanted:Qty: 1 on 04/18/2021 by Kevin Lim DO at OR [facility] Left: Abdomen [employer] [id number] 11/25/2023 S220 / / [id number] Lipiodol Injection - [id number] Implanted:Qty: 1 on 03/28/2022 at [facility] [employer] 03/01/2023 [id number] Syr Pf 2ml Embospheres 100-300 - [id number] Implanted:Qty: 1 on 03/28/2022 at [facility] [employer] [id number] 08/31/2024 [facility] / / [id number] -[id number] Clareon Iol Aspheric Hydrophobic Acrylic Iol Implanted:Qty: 1 on 04/02/2023 by Cody Gonzalez DO at OR [facility] Right: Eye JAZMIN 11/12/2025 CNA0T0 / [id number] / documented as of this encounter [...] Documents on File Type Date Recorded 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 No Full Code 07/22/2014 9:56 PM 07/24/2014 8:18 PM This order reflects the patients wishes and were consensually agreed upon. Question Answer Comments Discussion of Advance Directives occurred with: Patient Does the patient have a Living Will? No Does the patient have Health Care Power of Champagne Maker? No Care Teams Coating Mixer Supervisor Relationship Specialty Start Date End Date Francisco Cisse MD 200 [place] [address] PCP - General Internal Medicine 09/04/21 documented as of this encounter
--- OUTSIDE RECORDS SUMMARY | 2024-01-25 17:08 | External Medical Summary | Summary of Care ---
Author Name Unknown Organization [facility] Address 100 [place] [address] Phone [phone] Care Team Providers Care Biology Department Chair Name Role Phone Francisco Cisse MD Primary Care Provider + Reason for Visit * Reason Onset Date Comments Abnormal Lab Results 01/09/2024 CBCD Encounter Details Date Type Department Care Team (Late st Contact Info) Description 01/09/2024 Telephone Hematology/Oncology [facility] [place] 200 [facility] [address] Ayaka Tatum CRNP 400 [facility] [place] [address] Abnormal Lab Results (CBCD) Allergies No [...] than 7.0% ([facility]) Use to test blood sugars [...] mRNA, LNP-s, No Pre serve, 2-Dose Series ([employer] Link) 03/08/2021,02/15/2021 HepA Inact/HepB Recomb>=18yrs old 12/04/2019,04/2019,05/20/2019 11/19/2019 [...] 8:40 AM EST Laboratory Lab Mobile Phlebotomy [facility] [address] [place] [address] [facility] Mobile Home Draw [address] [place] [address] 01/21/2024 10:15 AM EST Cardiac Studies Cardiac Studies, [address] [address] 01/30/2024 12:42 PM EST Hospital Encounter OR [facility], Operating Room, [facility] - 4th Floor [address] [place] [address] Frank Peraza MD 27 [facility] [address] [place] [address] 01/30/2024 12:42 PM EST - 01/30/2024 1:44 PM EST Surgery OR [facility], Operating Room, [facility] - 4th Floor [address] [place] [address] Frank Peraza MD [address] [place] [address] [place] [address] CYSTOURETHROSCOPY WITH FULGURATION MEDIUM BLADDER TUMOR 02/04/2024 8:40 AM EST Laboratory Lab Mobile Phlebotomy [facility] [address] [place], [place] [address] [facility], [facility] Mobile Home Draw [address] [place] [address] 02/07/2024 11:00 AM EST Telemedicine [facility] [place] [address] [place] [address] Aidee Miller PA-C 300 [place], [place] [id number] Kriss Mays, Community Health Digital Editor [address] [place] [address] 02/14/2024 2:45 PM EDT Office Visit Urology Lynnette Fitzpatrick [address] [place] [address] [place] [address] Frank Peraza MD [address] [place] [address] [place] [address] 02/18/2024 8:40 AM EDT Laboratory Lab Mobile Phlebotomy [facility] [address] [place] [address] [facility] Mobile Home Draw [address] [place] [address] 03/03/2024 8:40 AM EDT Laboratory Lab Mobile Phlebotomy [facility] [address] [place] [address] [facility], [facility] Mobile Home Draw [address] [place] [address] 03/13/2024 2:00 PM EDT Office Visit Dermatology [facility] [place] 200 [facility] [place], [place] [address] Francisco Watson MD 200 [facility] [place], [place] [address] 03/17/2024 8:40 AM EDT Laboratory Lab Mobile Phlebotomy [facility] [address] [place] [address] [facility], [facility] Mobile Home Draw [address] [place] [address] 03/24/2024 2:30 PM EDT Office Visit Hematology/Oncolo gy [facility] [address] [place] [address] Ayaka Tatum CRNP 400 [place] [address] 03/30/2024 12:00 PM EDT Office Visit Family Practice [facility] 132 [place] [address] Kristen Vences DO 132 [place] [address] 03/31/2024 8:40 AM EDT Laboratory Lab Mobile Phlebotomy [facility] [address] [place] [address] [facility] Mobile Home Draw [address] [place] [address] 04/07/2024 10:00 AM EDT Office Visit Gastroenterology, [facility] [address] [place] [address] Lamar Tatum CRNP [address] [place] [address] 04/14/2024 8:40 AM EDT Laboratory Lab Mobile Phlebotomy [facility] [address] [place] [address] [facility] Gm Mobile Home Draw [address] [place] [address] 04/28/2024 8:40 AM EDT Laboratory Lab Mobile Phlebotomy [facility] [address] [place] [address] [facility] Mobile Home Draw [address] [place] [address] 05/12/2024 8:40 AM EDT Laboratory Lab Mobile Phlebotomy [facility] [address] [place] [address] [facility], G[facility] Mobile Home Draw [address] [place] [address] 05/26/2024 8:40 AM EDT Laboratory Lab Mobile Phlebotomy [facility] [address] [place] [address] Gmc, Gml Mobile Home Draw [address] [place] [address] 06/09/2024 8:40 AM EDT Laboratory Lab Mobile Phlebotomy [facility] [address] [place] [address] Gmc, Gml Mobile Home Draw [address] [place] [address] 06/23/2024 8:40 AM EDT Laboratory Lab Mobile Phlebotomy [facility] [address] [place] [address] Gmc, [facility] Mobile Home Draw [address] [place] [address] 07/07/2024 8:40 AM EDT Laboratory Lab Mobile Phlebotomy [facility] [address] [place] [address] Gmc, Gml Mobile Home Draw [address] [place] [address] 07/21/2024 8:40 AM EDT Laboratory Lab Mobile Phlebotomy [facility] [address] [place] [address] Gmc, Gml Mobile Home Draw [address] [place] [address] 08/04/2024 8:40 AM EDT Laboratory Lab Mobile Phlebotomy [facility] [address] [place] [address] Gmc, Gml Mobile Home Draw [address] [place] [address] 08/18/2024 8:40 AM EDT Laboratory Lab Mobile Phlebotomy [facility] [address] [place] [address] [facility] Mobile Home Draw [address] [place] [address] 08/20/2024 10:15 AM EDT Office Visit Ophthalmology, [facility] [address] [place] [address] Cody Gonzalez DO [address] [place] [address] 09/01/2024 8:40 AM EDT Laboratory Lab Mobile Phlebotomy [facility] [address] [place] [address] [facility] Mobile Home Draw [address] [place] [address] 09/15/2024 8:40 AM EDT Laboratory Lab Mobile Phlebotomy [facility] [address] [place] [address] [facility] Mobile Home Draw [address] [place] [address] Scheduled Procedures Name Priority Associated Diagnoses Date/Ti ny CYSTOURETHROSCOPY WITH FULGU RATION MEDIUM BLADDER TUMOR [...] Additional history exists CKD PHOS USE SMARTSET 80255 01/28/202401/03, 07/26/2022, 12/05/2021, Additional history exists Diabetic Foot Exam 03/06/2024 03/06/2023, 0 01/03/2022, 03/02/2021, Additional history exists HbA1c 05/28/2024 11/27/2023, 05/03, 01/28/2023, Additional history exists Albumin/Creatinine Ratio 07/12/2024 023, 10/01/2022, 09/11/2021, Additional history exists GFR 07/17/2024 01/17/2024, 12/03, 11/16/2023, Additional history exists COLONOSCOPY-ANNUAL AGES 18-100 08/09/2024 08/09/2023, 11/07/2022, 11/07/2022, Additional history exists CKD HGB USE SMARTSET 23245 01/07/202501/07, 01/07/2024, 12/26/2023, Additional history exists Lipid [...] this encounter Medical Devices Implanted Type Area Human Resources Office Assistant Device Identifier Shelf Expiration Date Model / Serial / Lot Clareon Iol Aspheric Hydrophobic Acrylic Iol Implanted:Qty: 1 on 04/23/2023 by Cody Gonzalez DO at OR [facility] Lens Left: Eye 11/12/2025 CNA0T0 / [id number] / Viatorr Tips Endoprosthesis 8-10 Mm X 8cm / 2cm Implanted:Qty: 1 on 10/07/2020 by Go Alvarado MD at [facility] Right: Abdomen 03/03/2023 [id number] / / [id number] Description:Viatorr TIPS End oprosthesis 8-10 mm x 8cm / 2cm, Manufactored by [employer] Syr Pf 2ml Embospheres 100-300 - [id number] Implanted:Qty: 1 on 04/18/2021 by Kevin Lim DO at OR [facility] Left: Abdomen [employer] [id number] 11/25/2023 S220GH / / [id number] -[id number] Lipiodol Injection - [id number] Implanted:Qty: 1 on 03/28/2022 at [facility] [employer] 03/01/2023 55892-93 01-2 / / [id number] Syr Pf 2ml Embospheres 100-300 - [id number] Implanted:Qty: 1 on 03/28/2022 at [facility] [employer] [id number] 08/31/2024 S220GH / / [id number] -5 Clareon Iol Aspheric Hydrophobic Acrylic Iol Implanted:Qty: 1 on 04/02/2023 by Cody Gonzalez DO at OR [facility] Right: Eye JAZMIN 11/12/2025 CNA0T0 / [id number] / documented as of this encounter Advance Directives Documents on File Type Date Recorded Patient 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 No Full Code 07/22/2014 9:56 PM 07/24/2014 8:18 PM This order reflects the patients wishes and were consensually agreed upon. Question Answer Comments Discussion of Advance Directives occurred with: Patient Does the patient have a Living Will? No Does the patient have Health Care Power of Rn New Graduate? No Care Teams Biology Department Chair Relationship Specialty Start Date End Date Francisco Cisse MD 200 [place] [address] PCP - General Internal Medicine 09/04/21 documented as of this encounter
--- OUTSIDE RECORDS SUMMARY | 2024-01-25 17:08 | External Medical Summary ---
Author Name Unknown Address Unknown Organization [facility] [address] [place] [address] Laboratory Report Ordering Provider Test Date Status NEELAM RICCI 01/21/2024 10:31:49 Final Observation Date Value Abnormality Reference (Units ) Status SYNC LEUKOCYTES IN BLOOD BY AUTOMATED COUNT 01/21/2024 10:31:49 4.02 4.00-10.80 (K/uL) Final Segs 01/21/2024 10:31:49 62.4 40.0-75.0 (%) Final Lymphs % 01/21/2024 10:31:49 20.4 18.0-42.0 (%) Final Monos 01/21/2024 10:31:49 8.5 1.0-11.0 (%) Final Eosinophils 01/21/2024 10:31:49 7.7 Above high normal 0.0-6.0 (%) Final Basos 01/21/2024 10:31:49 1.0 0.0-2.0 (%) Final Absolute Segs 01/21/2024 10:31:49 2.51 1.80-7.70 (K/uL) Final Lymphs, absolute 01/21/2024 10:31:49 0.82 Below low normal 1.00-4.80 (K/ul) Final Monos, Abs 01/21/2024 10:31:49 0.34 0.00-1.10 (K/uL) Final Eos, Abs 01/21/2024 10:31:49 0.31 0.00-0.70 (K/uL) Final Basos, Abs 01/21/2024 10:31:49 0.04 0.00-0.20 (K/uL) Final Performing Location [facility] [address] [place] [address]
--- OUTSIDE RECORDS SUMMARY | 2024-01-25 17:08 | External Medical Summary | Summary of Care ---
Author Name Unknown Organization [facility] Address [address] [address] Phone [phone] Care Team Providers Care Compressor Station Engineer Chief Name Role Phone Francisco Cisse MD Primary Care Provider + Reason for Visit * Reason Comments Outpatient Testing Encounter Details Date Type Department Care Team (Late st Contact Info) Description 01/21/2024 10:50 AM EST Laboratory Laboratory, [facility] [address] [facility] [place] [id number] [facility] [address] [facility] [place] [address] Iron deficiency [...] mRNA, LNP-s, No Pre serve, 2-Dose Series ([employer]) 03/08/2021,02/15/2021 HepA Inact/HepB Recomb>=18yrs old 12/04/2019,04/2019,05/20/2019 11/19/2019 PPD 06/18/2017, 3,01/09/2012,0306/2011 Pneumococcal Conjugate Vacc, 13 Valent (Prevnar) 05/01/2017 Pneumococcal Polysaccharide PPV23 (Pneumovax) 08/28/2022,10/25/2015,07/14/2012 Season Influenza, Quad, PF, Adjuvanted, 65+ Yrs, IM (FLUAD) 10/07/2020(Deferred: Patient Refused - pt says he already had his shot last month at [facility] Handy Lyons and Mckinley Cobian [...] 01/30/2024 12:42 PM EST Hospital Encounter OR [facility], Operating Room, [facility] - 4th Floor [address] [place] [address] Frank Peraza MD [address] [place] [address] 01/30/2024 12:42 PM EST - 01/30/2024 1:44 PM EST Surgery OR [facility], Operating Room, [facility] - 4th Floor [address] [place] [address] Frank Peraza MD [address] [place] [address] CYSTOURETHROSCOPY WITH FULGURATION MEDIUM BLADDER TUMOR 02/04/2024 8:40 AM EST Laboratory Lab [facility] [place] [address] [place] [address] [facility] Draw [address] [place] [address] 02/07/2024 11:00 AM EST Telemedicine [facility] [place] [address] [place] [address] Aidee Miller PA-C [address] [place] [address] Kriss Mays, [facility] [address] [place] [address] 02/14/2024 2:45 PM EDT Office Visit UrologLynnette Solares [address] [place] [address] Frank Peraza MD [address] [place] [address] 02/18/2024 8:40 AM EDT Laboratory Lab Mobile Phlebotomy [facility] [address] [place] [address] [facility] Draw [address] [place] [address] 03/03/2024 8:40 AM EDT Laboratory Lab Mobile Phlebotomy [facility] [address] [place] [address] [facility] [address] [place] [address] 03/13/2024 2:00 PM EDT Office Visit Dermatology [facility] [address] [facility] [place] [address] Francisco Watson MD [address] [place] [address] 03/17/2024 8:40 AM EDT Laboratory Lab Mobile Phlebotomy [facility] [address] [place] [address] Gm, [facility] [address] [place] [address] 03/24/2024 2:30 PM EDT Office Visit Hematology/Oncolo gy [facility] 200 [facility] [place] [id number] Ayaka Tatum CRNP [address] [place] [address] 03/30/2024 12:00 PM EDT Office Visit Family Practice [facility] [address] [place] [address] Kristen Vences DO [address] [place] [address] 03/31/2024 8:40 AM EDT Laboratory Lab Mobile Phlebotomy C [address] [place] [address] [facility] [address] [place] [address] 04/07/2024 10:00 AM EDT Office Visit Gastroenterology, [facility] [address] [place] [address] Lamar Tatum CRNP [address] [place] [address] 04/14/2024 8:40 AM EDT Laboratory Lab Mobile [facility]botomy [facility] [address] [place] [address] [facility] [address] [place] [address] 04/28/2024 8:40 AM EDT Laboratory Lab Mobile Phlebotomy [facility] [address] [place] [address] [facility] [address] [place] [address] 05/12/2024 8:40 AM EDT Laboratory Lab Mobile Phlebotomy C [address] [place] [address] [facility] [address] [place] [address] 05/26/2024 8:40 AM EDT Laboratory Lab Mobile Phlebotomy [facility] [address] [place] [address] [facility] [address] [place] [address] 06/09/2024 8:40 AM EDT Laboratory Lab Mobile Phlebotomy [facility] [address] [place] [address] [facility] [address] [place] [address] 06/23/2024 8:40 AM EDT Laboratory Lab Mobile Phlebotomy [facility] [address] [place] [address] [facility] [address] [place] [address] 07/07/2024 8:40 AM EDT Laboratory Lab Mobile Phlebotomy [facility] [address] [place] [address] [facility] [address] [place] [address] 07/21/2024 8:40 AM EDT Laboratory Lab Mobile Phlebotomy [facility] [address] [place] [address] [facility] [address] [place] [address] 08/04/2024 8:40 AM EDT Laboratory Lab Mobile Phlebotomy [facility] [address] [place] [address] [facility] [address] [place] [address] 08/18/2024 8:40 AM EDT Laboratory Lab Mobile Phlebot[facility] [address] [place] [address] [facility] [address] [place] [address] 08/20/2024 10:15 AM EDT Office Visit Ophthalmology, [facility] 132 [facility] [place] [address] Cody Gonzalez, DO [address] [place] [address] 09/01/2024 8:40 AM EDT Laboratory Lab Mobile [facility]botomy [facility] [address] [place] [address] [facility] [address] [place] [address] 09/15/2024 8:40 AM EDT Laboratory Lab Mobile Phlebotomy [facility] [address] [place] [address] [facility] [address] [place] [address] Scheduled Procedures Name Priority Associated Diagnoses Date/Ti [...] Additional history exists CKD PHOS USE SMARTSET 52212 01/28/202401/03, 07/26/2022, 12/05/2021, Additional history exists Diabetic Foot Exam 03/06/2024 03/06/2023, 0 01/03/2022, 03/02/2021, Additional history exists HbA1c 05/28/2024 11/27/2023, 05/03, 01/28/2023, Additional history exists Albumin/Creatinine Ratio 07/12/2024 023, 10/01/2022, 09/11/2021, Additional history exists GFR 07/17/2024 01/17/2024, 12/03, 11/16/2023, Additional history exists COLONOSCOPY-ANNUAL AGES 18-100 08/09/2024 08/09/2023, 11/07/2022, 11/07/2022, Additional history exists CKD HGB USE SMARTSET 87886 01/07/202501/21, 01/21/2024, 01/07/2024, Additional history exists Lipid Panel [...] this encounter Medical Devices Implanted Type Area Admissions Manager Device Identifier Shelf Expiration Date Model / Serial / Lot Clareon Iol Aspheric Hydrophobic Acrylic Iol Implanted:Qty: 1 on 04/23/2023 by Cody Gonzalez DO at OR [facility] Left: Eye 11/12/2025 [id number] / [id number] / Viatorr Tips Endoprosthesis 8-10 Mm X 8cm / 2cm Implanted:Qty: 1 on 10/07/2020 by Go Alvarado MD at [facility] Right: Abdomen 03/03/2023 [id number] / / [id number] Description:Viatorr TIPS End oprosthesis 8-10 mm x 8cm / 2cm, Manufactored by [employer] Syr Pf 2ml Embospheres 100-300 - [id number] Implanted:Qty: 1 on 04/18/2021 by Kevin Lim DO at OR [facility] Left: Abdomen [employer] [id number] 11/25/2023 [id number] / / [id number] Lipiodol Injection - [id number] Implanted:Qty: 1 on 03/28/2022 at [facility] [employer] 03/01/2023 [id number] 01-2 / / [id number] Syr Pf 2ml Embospheres 100-300 - [id number] Implanted:Qty: 1 on 03/28/2022 at [facility] [employer] [id number] 08/31/2024 S220GH / / [id number] -[id number] Clareon Iol Aspheric Hydrophobic Acrylic Iol Implanted:Qty: 1 on 04/02/2023 by Cody Gonzalez DO at OR [facility] Right: Eye [employer] 11/12/2025 [id number] / [id number] / documented as of this encounter Procedures Procedure Name Priority Date/Time Associated Diagnosis Comments DIFFERENTIAL, AUTOMATED STAT 01/21/2024 10:31 AM EST Iron deficiency anemia, unspecified iron deficiency anemia type CBC STAT 01/21/2024 10:31 AM EST Iron deficiency anemia, unspecified iron deficiency anemia type CBC STAT 01/21/2024 10:31 AM EST Iron deficiency anemia, unspecified iron deficiency anemia type documented in this encounter Results * (ABNORMAL) DIFFERENTIAL, AUTOMATED (01/21/2024 10:31 AM EST) WBC 4.02 4.00 - 10.80 K/uL 01/21/2024 10:36 AM EST [facility] [place] [facility] Neutrophils % 62.4 40.0 - 75.0 % 01/21/2024 10:36 AM EST [facility] [place] [facility] Lymphocytes % 20.4 18.0 - 42.0 % 01/21/2024 10:36 AM EST [facility] [place] [facility] Monocytes % 8.5 1.0 - 11.0 % 01/21/2024 10:36 AM EST [facility] [place] [facility] Eosinophils % 7.7(H) 0.0 - 6.0 % 01/21/2024 10:36 AM EST [facility] [place] [facility] Basophils % 1.0 0.0 - 2.0 % 01/21/2024 10:36 AM EST [facility] [place] [facility] Absolute Neutrophils 2.51 1.80 - 7.70 K/uL 01/21/2024 10:36 AM EST [facility] [place] [facility] Absolute Lymphocytes 0.82(L) 1.00 - 4.80 K/ul 01/21/2024 10:36 AM EST [facility] [place] [facility] Absolute Monocytes 0.34 0.00 - 1.10 K/uL 01/21/2024 10:36 AM EST [facility] [place] [facility] Absolute Eosinophils 0.31 0.00 - 0.70 K/uL 01/21/2024 10:36 AM EST [facility] [place] [facility] Absolute Basophils 0.04 0.00 - 0.20 K/uL 01/21/2024 10:36 AM EST [facility] [place] [facility] Blood Venous blood specimen / Unknown Venipuncture / Unknown 01/21/2024 10:31 AM EST 01/21/2024 10:31 AM EST Rodrigueznic Ramires MD LAB BLOOD ORDERA BLES [facility] [place] [address] [place] [address] [place] [address] * (ABNORMAL) CBC (01/21/2024 10:31 AM EST) WBC 4.02 4.00 - 10.80 K/uL 01/21/2024 10:36 AM EST [facility] [place] [facility] RBC 2.57 4.50 - 5.25 M/uL 01/21/2024 10:36 AM EST [facility] [place] [facility] HGB 7.9(L) 14.0 - 16.8 g/dL 01/21/2024 10:36 AM EST [facility] [place] [facility] HCT 25.0(L) 40.0 - 48.4 % 01/21/2024 10:36 AM EST [facility] [place] [facility] MCV 97.3 82.0 - 99.5 fL 01/21/2024 10:36 AM EST [facility] [place] [facility] MCH 30.7 27.0 - 34.0 pg 01/21/2024 10:36 AM EST [facility] [place] [facility] MCHC 31.6 32.0 - 36.0 g/dL 01/21/2024 10:36 AM EST [facility] [place] [facility] RDW 18.7 11.5 - 15.5 % 01/21/2024 10:36 AM EST [facility] [place] [facility] PLT 100(L) 140 - 400 K/uL 01/21/2024 10:36 AM EST [facility] [place] [facility] MPV 11.4 6.6 - 11.1 fL 01/21/2024 10:36 AM EST [facility] [place] [facility] Blood Venous blood specimen / Unknown Venipuncture / Unknown 01/21/2024 10:31 AM EST 01/21/2024 10:31 AM EST Jennifer Ramires MD LAB BLOOD ORDERA BLES [facility] [place] [facility] [address] [facility] [place] [address] documented in this encounter Visit Diagnoses Diagnosis Hematuria, gross- Primary Gross hematuria Prostate cancer (HCC) Malignant neoplasm of prostate Abnormal cystoscopy Other nonspecific abnormal finding Iron deficiency anemia, unspecified iron deficiency anemia type Hematuria, gross Gross hematuria Abnormal cystoscopy Other nonspecific abnormal finding documented in this encounter Advance Directives Documents on File Type Date Recorded Patient Hand Packer Expl anation Advance Directives and Living Will 12/11/2022 ADVANCE DIRECTIVE / LIVING WILL LIVING WILL Power of Stitch Wheeler 12/11/2022 POWER OF A TTORNEY Latest Code [...] the patient have Health Care Power of Stitch Wheeler? No Full Code 07/22/2014 9:56 PM 07/24/2014 8:18 PM This order reflects the patients wishes and were consensually agreed upon. Question Answer Comments Discussion of Advance Directives occurred with: Patient Does the patient have a Living Will? No Does the patient have Health Care Power of Stitch Wheeler? No Care Teams Compressor Station Engineer Chief Relationship Specialty Start Date End Date Francisco Cisse MD [address] [place] [address] PCP - General Internal Medicine 09/04/21 documented as of this encounter
--- OUTSIDE RECORDS SUMMARY | 2024-01-25 17:08 | External Medical Summary ---
Author Name Unknown Address Unknown Organization [id number]:[facility] - [address] [address] Laboratory Report Ordering Provider Test Date Status NEELAM RICCI 01/21/2024 10:31:49 Final Observation Date Value Abnormality Reference (Units ) Status WBC, Total 01/21/2024 10:31:49 4.02 4.00-10.8 0 (K/uL) Final RBC 01/21/2024 10:31:49 2.57 4.50-5.25 (M/uL) Final Hemoglobin 01/21/2024 10:31:49 7.9 Below low normal 14 .0-16.8 (g/dL) Final HCT 01/21/2024 10:31:49 25.0 Below low normal 40. 0-48.4 (%) Final MCV 01/21/2024 10:31:49 97.3 82.0-99.5 (fL) Final MCH 01/21/2024 10:31:49 30.7 27.0-34.0 (pg) Final MCHC 01/21/2024 10:31:49 31.6 32.0-36.0 (g/dL) Final RDW 01/21/2024 10:31:49 18.7 11.5-15.5 (%) Final Platelets 01/21/2024 10:31:49 100 Below low normal 140 -400 (K/uL) Final MPV 01/21/2024 10:31:49 11.4 6.6-11.1 ( fL) Final Performing Location [facility] [facility] [facility]1 0 - [address] [place] [address]
--- OUTSIDE RECORDS SUMMARY | 2024-01-25 17:09 | External Medical Summary ---
Author Name Unknown Address Unknown Organization [id number]:[facility] [facility] [address] [facility] [address] Laboratory Report Ordering Provider Test Date Status CHELSEY BISWAS 01/17/2024 13:02:28 Final Observation Date Value Abnormality Reference (Units ) Status Iron 01/17/2024 13:02:28 52 45-176 (ug /dL) Final Iron-binding capacity 01/17/2024 13:02:28 272 250-425 (ug/dL) Final Transferrin Sat % 01/17/2024 13:02:28 19 15 -55 (%) Final Performing Location LABORATORY C - [address] [facility] [address]
--- OUTSIDE RECORDS SUMMARY | 2024-01-25 17:09 | External Medical Summary | Summary of Care ---
Author Name Unknown Organization [facility] Address [address] [place] [address] Phone [phone] Care Team Providers Care Manufacturing Systems Engineer Name Role Phone Francisco Cisse MD Primary Care Provider + Reason for Referral * Evaluate & Treat - Unlimited Visits (Within 30 days (routine)) - Authorized Specialty Diagnoses / Procedures Referred By Contact Referred To Contact Interventional Radiology / Radiology Diagnoses HCC (hepatocellular carcinoma) (HCC) Angie Barbosa CRNP [address] [place] [address] Referral ID Status Reason Start Date Expiration Date Visits Requested Visits Authorized [id number] Authorized Ancillary Services Required 01/16/2024 999 999 Question Answer Referral Priority Within 30 days (routine) Where should this appointment be scheduled? [facility] Will The Procedure Be Performed? [facility] Comments Please enter the reason for consult: HCC, IR tx for HCC recommended at multidisciplinary tumor board meeting. Initially ordered IR embolization at [facility] - unsure exactly what procedure will be completed by IR, so placing an order for an IR referral to discuss w pt. Pt would likely prefer a televideo appt as he lives in [place] and doesn't drive. Are outside images available?: Yes - Images available in [facility] * Precert (Within 10 days (routine)) - Authorized Specialty Diagnoses / Procedures Referred By Contac t Referred To Contact Radiology Diagnoses HCC (hepatocellular carcinoma) (HCC) Procedures IR CANCER CHEMO EMBOLIZATION (TACE) Angie Barbosa CRNP [address] [place] [address] Referral ID Status Reason Start Date Expiration Date V isits Requested Visits Authorized [id number] Authorized 01/23/2024 999 999 Reason for Visit * Reason Onset Date Comments Referral Requested by Specialist 01/09/2024 Encounter Details Date Type Department Care Team (Late st Contact Info) Description 01/09/2024 Telephone Gastroenterology, [facility] [address] [place] [address] Angie Barbosa CRNP [address] [place] [address] Referral Requested by Specialist Allergies No known active allergiesdocumented as of this encounter (statuses as of 01/16/2024) Medications Medication Sig Dispensed Refills Start Date [...] as of this encounter (statuses as of 01/16/2024) Active Problems Problem Noted Date Diagnosed Date [...] as of this encounter (statuses as of 01/16/2024) Resolved Problems Problem Noted Date Diagnosed Date [...] as of this encounter (statuses as of 01/16/2024) Immunizations Name Administration Dates Next Due COVID-19 mRNA, LNP-s, No Pre serve, 2-Dose Series (Yooli) 03/08/2021,02/15/2021 HepA Inact/HepB Recomb>=18yrs old 12/04/2019,04/2019,05/20/2019 11/19/2019 PPD 06/18/2017, 3,01/09/2012,06/2011 Pneumococcal Conjugate Vacc, 13 Valent (Prevnar) 05/01/2017 Pneumococcal Polysaccharide PPV23 (Pneumovax) 08/28/2022,10/25/2015,07/14/2012 Season Influenza, Quad, PF, Adjuvanted, 65+ Yrs, IM (FLUAD) 10/07/2020(Deferred: Patient Refused - pt says he already had his shot last month at [facility] Lyons and Mckinley Cobian made [...] encounter Miscellaneous Notes * Addendum Note - Angie Barbosa CRNP - 01/16/2024 5:03 PM ESTAddended by: ANGIE BARBOSA on: 01/16/2024 05:03 PM Modules accepted: Orders * Telephone Encounter - Angie Barbosa CRNP - 01/16/2024 4:56 PM EST Again - this pt was discussed at multidisciplinary liver tumor board w recommendation for IR tx of HCC. Procedure intially ordered for [facility], but message from IR [facility] staff that this procedure can't be done at [facility]. (or not able on this specific pt due to comorbidities - recommended at [facility]. I responded back asking exactly what to order - no response wo will set up for IR referral to discuss HCC ? TACE, ? Embolization, ? Other tx for HCC or other modality placed for [facility]. * Telephone Encounter - Angie Barbosa CRNP - 01/09/2024 3:13 PM EST I spoke w the pt by phone yesterday, then presented his new CT/MRI findings (at [facility] in December) tothe multidisciplinary liver meeting (tumor board). The group reviewed the images and recommend referral to IR for tx of enlarging left lobe of the liver lesion. The did not see the second lesion mentioned on CT also at [facility]. IR referral placed. Unable to reach by phone today. Will message him. documented in this encounter Plan of Treatment Upcoming Encounters Date Type Department Care Team (Latest Contact Info) Description 01/21/2024 8:40 AM EST Laboratory Lab Mobile Phlebotomy [facility] [address] [place] [address] [facility] Mobile Home Draw [address] [place] [address] 01/21/2024 10:15 AM EST Cardiac Studies Cardiac Studies, [facility] [address] [place] [address] 01/30/2024 12:42 PM EST Hospital Encounter OR [facility], Operating Room, [facility] - [facility]th [facility] [address] Frank Peraza MD [address] [place] [address] 01/30/2024 12:42 PM EST - 01/30/2024 1:44 PM EST Surgery OR [facility], Operating Room, [facility] - 4th Floor [address] [facility] [place] [address] Frank Peraza MD [address] [facility] [address] CYSTOURETHROSCOPY WITH FULGURATION MEDIUM BLADDER TUMOR 02/04/2024 8:40 AM EST Laboratory Lab Mobile Phlebotomy [facility] [address] [place] [address] [facility] Mobile Home Draw [address] [place] [address] 02/07/2024 11:00 AM EST Telemedicine [facility] [place], [place] [address] [place] [address] Aidee Miller PA-C [address] [place] [address] Kriss Mays, Community Health Building Construction Teacher [address] [place] [address] 02/14/2024 2:45 PM EDT Office Visit Urology Lynnette Fitzpatrick [address] [place] [address] Frank Peraza MD [address] [place] [address] 02/18/2024 8:40 AM EDT Laboratory Lab Mobile Phlebotomy [facility] [address] [place] [address] [facility] [place] Mobile Home Draw [address] [place] [address] 03/03/2024 8:40 AM EDT Laboratory Lab Mobile Phlebotomy [facility] [address] [place] [address] [facility] Mobile Home Draw [address] [place] [address] 03/13/2024 2:00 PM EDT Office Visit Dermatology [facility] [address] [place] [address] Francisco Watson MD [address] [place] [address] 03/17/2024 8:40 AM EDT Laboratory Lab Mobile Phlebotomy [facility] [address] [place] [address] [facility], [facility] Mobile Home Draw [address] [place] [address] 03/24/2024 2:30 PM EDT Office Visit Hematology/Oncolo gy [facility] [address] [place] [address] Ayaka Barbosa CRNP [address] [facility] [place] [address] 03/30/2024 12:00 PM EDT Office Visit [facility] [address] [place] [address] Kristen Vences, [address] [place] [address] 03/31/2024 8:40 AM EDT Laboratory Lab Mobile Phlebotomy [facility] [address] [place] [address] [facility], [facility] Mobile Home Draw [address] [place] [address] 04/07/2024 10:00 AM EDT Office Visit Gastroenterology, [facility] [address] [place] [address] Angie Barbosa CRNP [address] [place] [address] 04/14/2024 8:40 AM EDT Laboratory Lab Mobile Phlebotomy [facility] [address] [place] [address] [facility] Mobile Home Draw [address] [place] [address] 04/28/2024 8:40 AM EDT Laboratory Lab Mobile Phlebotomy [facility] [address] [place] [address] [facility], [facility] Mobile Home Draw [address] [place] [address] 05/12/2024 8:40 AM EDT Laboratory Lab Mobile Phlebotomy [facility] [address] [place] [address] [facility], [facility] Mobile Home Draw [address] [place] [address] 05/26/2024 8:40 AM EDT Laboratory Lab Mobile Phlebotomy [facility] [address] [place] [address] [facility], [facility] Mobile Home Draw [address] [place] [address] 06/09/2024 8:40 AM EDT Laboratory Lab Mobile Phlebotomy [facility] [address] [place] [address] [facility] Mobile Home Draw [address] [place] [address] 06/23/2024 8:40 AM EDT Laboratory Lab Mobile Phlebotomy [facility] [address] [place] [address] [facility] Mobile Home Draw [address] [place] [address] 07/07/2024 8:40 AM EDT Laboratory Lab Mobile Phlebotomy [facility] [address] [place] [address] [facility] Mobile Home Draw [address] [place] [address] 07/21/2024 8:40 AM EDT Laboratory Lab Mobile Phlebotomy [facility] [address] [place] [address] [facility], [facility] Mobile Home Draw [address] [place] [address] 08/04/2024 8:40 AM EDT Laboratory Lab Mobile Phlebotomy [facility] [address] [place] [address] [facility], [facility] Mobile Home Draw [address] [place] [address] 08/18/2024 8:40 AM EDT Laboratory Lab Mobile Phlebotomy C [address] [place] [address] [facility], [facility] Mobile Home Draw [address] [place] [address] 08/20/2024 10:15 AM EDT Office Visit Ophthalmology, [address] [address] Cody Gonzalez, DO [address] [place] [address] 09/01/2024 8:40 AM EDT Laboratory Lab Mobile Phlebotomy [facility] [address] [place] [address] [facility], [facility] Mobile Home Draw [address] [place] [address] 09/15/2024 8:40 AM EDT Laboratory Lab Mobile Phlebotomy [facility] [address] [place] [address] [facility], [facility] Mobile Home Draw [address] [place] [address] Scheduled Orders Name Type Priority Associated Diagnoses Orde r Schedule IR CANCER CHEMO EMBOLIZATION (TACE) Medical Imaging Routine HCC (hepatocellular carcinoma) (HCC) Expected: 01/23/2024, Expires: 02/06/2025 Scheduled Procedures Name Priority Associated Diagnoses Date/Ti me CYSTOURETHROSCOPY WITH FULGU RATION MEDIUM BLADDER TUMOR Hematuria, gross Abnormal cystoscopy 01/30/2024 12:42 PM EST COLONOSCOPY FLEXIBLE PROXIMA L DIAGNOSTIC Recall History of colonic polyps Portal hypertensive gastropathy (HCC) ESOPHAGOGASTRODUODENOSCOPY ( EGD), FLEXIBLE, TRANSORAL, DIAGNOSTIC Recall History of colonic polyps Portal hypertensive gastropathy (HCC) Scheduled Referrals Name Type Priority Associated Diagnoses Order Schedule INTERVENTIONAL RADIOLOGY REFERRAL OP Referral Within 30 days (routine) HCC (hepatocellular carcinoma) (HCC) Ordered: 01/16/2024 Health Maintenance Due Date Last Done Comments Zoster Vaccines (1 of 2) 2000 COVID-19 Vaccine (3 - Pfizer risk series) 04/05/2021 03/08/2021, 02/15/2021 Depression Screening 05/03/2022 05/03/2021 Diabetic Eye Exam 01/17/2024 01/17/2023, , 01/17/2023, Additional history exists CKD PHOS USE SMARTSET 20624 01/28/202401/03, 07/26/2022, 12/05/2021, Additional history exists Diabetic Foot Exam 03/06/2024 03/06/2023, 0 01/03/2022, 03/02/2021, Additional history exists HbA1c 05/28/2024 11/27/2023, 05/03, 01/28/2023, Additional history exists GFR 06/22/2024 12/23/2023, 11/01, 08/30/2023, Additional history exists Albumin/Creatinine Ratio 07/12/2024 023, 10/01/2022, 09/11/2021, Additional history exists COLONOSCOPY-ANNUAL AGES 18-100 08/09/2024 08/09/2023, 11/07/2022, 11/07/2022, Additional history exists CKD HGB USE SMARTSET 65034 01/07/202501/07, 01/07/2024, 12/26/2023, Additional history exists Lipid [...] this encounter Medical Devices Implanted Type Area System Administration Manager Device Identifier Shelf Expiration Date Model / Serial / Lot Clareon Iol Aspheric Hydrophobic Acrylic Iol Implanted:Qty: 1 on 04/23/2023 by Cody Gonzalez DO at OR [facility] Lens Left: Eye 11/12/2025 [id number] / [id number] / Viatorr Tips Endoprosthesis 8-10 Mm X 8cm / 2cm Implanted:Qty: 1 on 10/07/2020 by Go Alvarado MD at [facility] Right: Abdomen 03/03/2023 [id number] / / [id number] Description:Viatorr TIPS End oprosthesis 8-10 mm x 8cm / 2cm, Manufactored by [employer] Syr Pf 2ml Embospheres 100-300 - [id number] Implanted:Qty: 1 on 04/18/2021 by Kevni Lim DO at OR [facility] Left: Abdomen [employer] [id number] 11/25/2023 S220GH / / [id number] Syr Pf 2ml Embospheres 100-300 - [id number] Implanted:Qty: 1 on 03/28/2022 at [facility] [employer] [id number] 08/31/2024 S220GH / / [id number] -[id number] Clareon Iol Aspheric Hydrophobic Acrylic Iol Implanted:Qty: 1 on 04/02/2023 by Cody Gonzalez DO at OR [facility] Right: Eye JAZMIN 11/12/2025 CNA0T0 / [id number] / documented as of this encounter Visit Diagnoses Diagnosis Hematuria, gross- Primary Gross hematuria Abnormal cystoscopy Other nonspecific abnormal finding HCC (hepatocellular carcinoma) (HCC)- Primary Malignant neoplasm of liver, primary Hematuria, gross Gross hematuria Abnormal cystoscopy Other nonspecific abnormal finding documented in this encounter Advance Directives Documents on File Type Date Recorded Patient Engine Wiper Expl anation Advance Directives and Living Will 12/11/2022 ADVANCE DIRECTIVE / LIVING WILL LIVING WILL Power of Soft Top Installer 12/11/2022 POWER OF A TTORNEY Latest [...] the patient have Health Care Power of Soft Top Installer? No Full Code 07/22/2014 9:56 PM 07/24/2014 8:18 PM This order reflects the patients wishes and were consensually agreed upon. Question Answer Comments Discussion of Advance Directives occurred with: Patient Does the patient have a Living Will? No Does the patient have Health Care Power of Soft Top Installer? No Care Teams Manufacturing Systems Engineer Relationship Specialty Start Date End Date Francisco Cisse MD [address] [facility] [place] [address] PCP - General Internal Medicine 09/04/21 documented as of this encounter
--- OUTSIDE RECORDS SUMMARY | 2024-01-25 17:09 | External Medical Summary | Summary of Care ---
Author Name Unknown Organization [facility] Address [address] [facility] [address] Phone [phone] Care Team Providers Care Weigher Packing Name Role Phone Francisco Cisse MD Primary Care Provider + Encounter Details Date Type Department Care Team (Late st Contact Info) Description 12/12/2023 Orders Only General Internal Medicine [facility] [address] [facility] [place] [address] Francisco [facility] [address] [facility] [address] Allergies No known active allergiesdocumented as of [...] mRNA, LNP-s, No Pre serve, 2-Dose Series ([employer]) 03/08/2021,02/15/2021 HepA Inact/HepB Recomb>=18yrs old 12/04/2019,04/2019,05/20/2019 11/19/2019 PPD 06/18/2017, 3,01/09/2012,0306/2011 Pneumococcal Conjugate Vacc, 13 Valent (Prevnar) 05/01/2017 Pneumococcal Polysaccharide PPV23 (Pneumovax) 08/28/2022,10/25/2015,07/14/2012 Season Influenza, Quad, PF, Adjuvanted, 65+ Yrs, IM (FLUAD) 10/07/2020(Deferred: Patient Refused - pt says he already had his shot last month at [facility] [employer] Lyons and Mckinley Cobian [...] 8:40 AM EST Laboratory Lab Mobile Phlebotomy [facility] [address] [place] [address] [facility] [place] [place], [facility] Mobile Home Draw [address] [place] [address] 01/21/2024 10:15 AM EST Cardiac Studies Cardiac Studies, [address] [place] [address] 01/30/2024 12:42 PM EST Hospital Encounter OR [facility], Operating Room, [facility] - 4th Floor [address] [place] [address] Frank Peraza MD [address] [place] [address] 01/30/2024 12:42 PM EST - 01/30/2024 1:44 PM EST Surgery OR [facility], Operating Room, [facility] Floor [address] [place] [address] Frank Peraza MD [address] [place] [address] CYSTOURETHROSCOPY WITH FULGURATION MEDIUM BLADDER TUMOR 02/04/2024 8:40 AM EST Laboratory Lab Mobile Phlebotomy [facility] [address] [place] [address] [facility] [place] [place], [facility] Mobile Home Draw [address] [place] [address] 02/07/2024 11:00 AM EST Telemedicine [facility] [place] [address] [place] [address] Aidee Miller PA-C [address] [place] [address] Kriss Mays, Community Health Special Education Aide [address] [place] [address] 02/14/2024 2:45 PM EDT Office Visit Urology Lynnette Fitzpatrick [address] [place] [address] Frank Peraza MD [address] [place] [address] 02/18/2024 8:40 AM EDT Laboratory Lab Mobile Phlebotomy [facility] [address] [place] [address] [facility] [place] [place], l Mobile Home Draw [address] [place] [address] 03/03/2024 8:40 AM EDT Laboratory Lab Mobile Phlebotomy [facility] [address] [place] [address] [facility] [place] [place], [facility] Mobile Home Draw [address] [place] [address] 03/13/2024 2:00 PM EDT Office Visit Dermatology [facility] [address] [place] [address] Francisco Watson MD [address] [place] [address] 03/17/2024 8:40 AM EDT Laboratory Lab Mobile Phlebotomy [facility] [address] [place] [address] [facility] [place] [place], [facility] Mobile Home Draw [address] [place] [address] 03/24/2024 2:30 PM EDT Office Visit Hematology/Oncolo gy [facility] [address] [place] [address] Ayaka Tatum CRNP [address] [place] [address] 03/30/2024 12:00 PM EDT Office Visit Family Practice [facility] [address] [place] [address] Kritsen Vences DO [address] [place] [address] 03/31/2024 8:40 AM EDT Laboratory Lab Mobile Phlebotomy [facility] [address] [place] [address] [facility] [place] [place], l Mobile Home Draw [address] [place] [address] 04/07/2024 10:00 AM EDT Office Visit Gastroenterology, [facility] [address] [place] [address] Lamar Tatum CRNP [address] [place] [address] 04/14/2024 8:40 AM EDT Laboratory Lab Mobile Phlebotomy [facility] [address] [place] [address] [facility] [place] [place], [facility] Mobile Home Draw [address] [place] [address] 04/28/2024 8:40 AM EDT Laboratory Lab Mobile Phlebotomy [facility] [address] [place] [address] [facility], [facility] Mobile Home Draw [address] [place] [address] 05/12/2024 8:40 AM EDT Laboratory Lab Mobile Phlebotomy [facility] [address] [place] [address] [facility], [facility] Mobile Home Draw [address] [place] [address] 05/26/2024 8:40 AM EDT Laboratory Lab Mobile Phlebotomy [facility] [address] [place] [address] [facility], [facility] Mobile Home Draw [address] [place] [address] 06/09/2024 8:40 AM EDT Laboratory Lab Mobile Phlebotomy [facility] [address] [place] [address] [facility], [facility] Mobile Home Draw [address] [place] [address] 06/23/2024 8:40 AM EDT Laboratory Lab Mobile Phlebotomy [facility] [address] [place] [address] [facility], [facility] Mobile Home Draw [address] [place] [address] 07/07/2024 8:40 AM EDT Laboratory Lab Mobile Phlebotomy [facility] [address] [place] [address] [facility], [facility] Mobile Home Draw [address] [place] [address] 07/21/2024 8:40 AM EDT Laboratory Lab Mobile Phlebotomy [facility] [address] [place] [address] [facility], [facility] Mobile Home Draw [address] [place] [address] 08/04/2024 8:40 AM EDT Laboratory Lab Mobile Phlebotomy [facility] [address] [place] [address] [facility], [facility] Mobile Home Draw [address] [place] [address] 08/18/2024 8:40 AM EDT Laboratory Lab Mobile Phlebotomy [facility] [address] [place] [address] [facility] [place] [place], [facility] Mobile Home Draw [address] [place] [address] 08/20/2024 10:15 AM EDT Office Visit Ophthalmology, [facility] [address] [place] [address] Cody Gonzalez, DO [address] [facility] [place] [address] 09/01/2024 8:40 AM EDT Laboratory Lab Mobile Phlebotomy [facility] [address] [place] [address] [facility] [place] [place], [facility] Mobile Home Draw [address] [place] [address] 09/15/2024 8:40 AM EDT Laboratory Lab Mobile Phlebotomy [facility] [address] [place] [address] [facility] [place] [place], [facility] Mobile Home Draw [address] [place] [address] Scheduled Procedures Name Priority Associated Diagnoses Date/Ti [...] Additional history exists CKD PHOS USE SMARTSET 60238 01/28/202401/03, 07/26/2022, 12/05/2021, Additional history exists Diabetic Foot Exam 03/06/2024 03/06/2023, 0 01/03/2022, 03/02/2021, Additional history exists HbA1c 05/28/2024 11/27/2023, 05/03, 01/28/2023, Additional history exists GFR 06/22/2024 12/23/2023, 11/01, 08/30/2023, Additional history exists Albumin/Creatinine Ratio 07/12/2024 023, 10/01/2022, 09/11/2021, Additional history exists COLONOSCOPY-ANNUAL AGES 18-100 08/09/2024 08/09/2023, 11/07/2022, 11/07/2022, Additional history exists CKD HGB USE SMARTSET 80522 01/07/202501/07, 01/07/2024, 12/26/2023, Additional history exists Lipid [...] this encounter Medical Devices Implanted Type Area Aoc Operations Intelligence Chief Device Identifier Shelf Expiration Date Model / Serial / Lot Clareon Iol Aspheric Hydrophobic Acrylic Iol Implanted:Qty: 1 on 04/23/2023 by Cody Gonzalez DO at OR [facility] Lens Left: Eye 11/12/2025 CNA0T0 / [id number] / Viatorr Tips Endoprosthesis 8-10 Mm X 8cm / 2cm Implanted:Qty: 1 on 10/07/2020 by Go Alvarado MD at [facility] Right: Abdomen 03/03/2023 [id number] / / [id number] Description:Viatorr TIPS End oprosthesis 8-10 mm x 8cm / 2cm, Manufactored by [employer] Syr Pf 2ml Embospheres 100-300 - [id number] Implanted:Qty: 1 on 04/18/2021 by Kevin Lim DO at OR [facility] Left: Abdomen [employer] [id number] 11/25/2023 S220GH / / [id number] -5 Syr Pf 2ml Embospheres 100-300 - [id number] Implanted:Qty: 1 on 03/28/2022 at [facility] [employer] [id number] 08/31/2024 S220GH / / [id number] -5 Clareon Iol Aspheric Hydrophobic Acrylic Iol Implanted:Qty: 1 on 04/02/2023 by Cody Gonzalez DO at OR [facility] Right: Eye JAZMIN 11/12/2025 CNA0T0 / [id number] / documented as of this encounter [...] study not interpreted or resulted by a [facility] or [facility] contracted radiologist. Francisco Cisse MD RAD CT documented in this encounter Advance Directives Documents on File Type Date Recorded Patient Limnologist Expl anation Advance Directives and Living Will 12/11/2022 ADVANCE DIRECTIVE / LIVING WILL LIVING WILL Power of Psychological Examiner 12/11/2022 POWER OF A TTORNEY Latest Code [...] the patient have Health Care Power of Psychological Examiner? No Full Code 07/22/2014 9:56 PM 07/24/2014 8:18 PM This order reflects the patients wishes and were consensually agreed upon. Question Answer Comments Discussion of Advance Directives occurred with: Patient Does the patient have a Living Will? No Does the patient have Health Care Power of Psychological Examiner? No Care Teams Weigher Packing Relationship Specialty Start Date End Date Francisco Cisse MD [address] [place] [address] PCP - General Internal Medicine 09/04/21 documented as of this encounter
--- OUTSIDE RECORDS SUMMARY | 2024-01-25 17:09 | External Medical Summary ---
Author Name Unknown Address Unknown Organization K01:LABORATORY [facility] [place] - [address] [place] [address] Laboratory Report Ordering Provider Test Date Status ZULAYCHELSEY 01/17/2024 13:02:28 Final Observation Date Value Abnormality Reference (Units ) Status Ferritin 01/17/2024 13:02:28 38 30-400 (ng /mL) Final Performing Location [facility] - [address] [facility] [address] [place] [address]
--- OUTSIDE RECORDS SUMMARY | 2024-01-25 17:09 | External Medical Summary | Summary of Care ---
Author Name Unknown Organization [facility] Address [address] [place] [address] Phone [phone] Care Team Providers Care Court Security Officer Name Role Phone Francisco Cisse MD Primary Care Provider + Encounter Details Date Type Department Care Team (Late st Contact Info) Description 01/15/2024 3:45 PM EST Scheduled Telephone Care Coordination and Integration [address] [place], [place] [phone] Shane Urena [facility] Health County Historian [address] [place], [place] [phone] Allergies No known active allergiesdocumented as of this encounter (statuses as of 01/15/2024) Medications Medication Sig Dispensed Refills Start Date End Date Status Tylenol 325 MG Oral Capsule (Acetaminophen) Take 650 mg by mouth every 8 hours as needed for Pain (fever). 0 Active OneTouch Verio In Vitro Strip (Glucose Blood)Indications:Ty pe 2 diabetes mellitus with hemoglobin A1c goal of less than 7.0% ([facility]) Use to test blood sugars 3 [...] as of this encounter (statuses as of 01/15/2024) Active Problems Problem Noted Date Diagnosed Date [...] as of this encounter (statuses as of 01/15/2024) Resolved Problems Problem Noted Date Diagnosed Date [...] as of this encounter (statuses as of 01/15/2024) Immunizations Name Administration Dates Next Due COVID-19 mRNA, LNP-s, No Pre serve, 2-Dose Series (Project Green) 03/08/2021,02/15/2021 HepA Inact/HepB Recomb>=18yrs old 12/04/2019,04/2019,05/20/2019 11/19/2019 [...] as of this encounter Progress Notes * Shane Urena [facility] Historian - 01/15/2024 3:40 PM EST Telemedicine visit: No Community [facility] Historian (CANDY) documentation: CANDY attempted follow up phone call for RNCM and reached the patient's voicemail. CANDY received a message that he mailbox is full and unable to accept any messages at this time. Surjit Urena [facility] Historian II [facility] [place] [phone] documented in this encounter Plan of Treatment Upcoming Encounters Date Type Department Care Team (Latest Contact Info) Description 01/21/2024 8:40 AM EST Laboratory Lab [place]bot[place] [facility] [address] [place] [address] [facility], [facility] Mobile Home Draw [address] [place] [address] 01/21/2024 10:15 AM EST Cardiac Studies Cardiac Studies, [facility] [address] [facility] [address] 01/30/2024 12:42 PM EST Hospital Encounter [facility], Operating Room, [facility] - 4th Floor [address] [facility] [place] [id number] Frank Peraza MD [address] [address] [place] [address] 01/30/2024 12:42 PM EST - 01/30/2024 1:44 PM EST Surgery OR [facility], Operating Room, [facility] - 4th Floor [address] [facility] [place] [address] Frank Peraza MD [address] [place] [address] [place] [address] CYSTOURETHROSCOPY WITH FULGURATION MEDIUM BLADDER TUMOR 02/04/2024 8:40 AM EST Laboratory Lab Mobile Phlebot[place] [facility] [address] [place] [address] [facility], [facility] Mobile Home Draw [address] [place] [address] 02/07/2024 11:00 AM EST Telemedicine [facility], [place] [address] [place] [address] Aidee Miller PA-C [address] [place] [address] Kriss Mays, Community [facility] Historian [address] [place] [address] 02/14/2024 2:45 PM EDT Office Visit Urology Lynnette Fitzpatrick [address] [place] [address] [place] [address] Frank Peraza MD [address] [place] [address] [place] [address] 02/18/2024 8:40 AM EDT Laboratory Lab [place] [facility] [address] [place] [address] [facility], [facility] Mobile Home Draw [address] [place] [address] 03/03/2024 8:40 AM EDT Laboratory Lab Mobile Phlebot[place] [facility] [address] [place] [address] [facility], [facility] Mobile Home Draw [address] [place] [address] 03/13/2024 2:00 PM EDT Office Visit Dermatology [facility] [address] [place] [address] Francisco Watson MD [address] [place] [address] 03/17/2024 8:40 AM EDT Laboratory Lab Mobile Phlebotomy [facility] [address] [place] [address] [facility], [facility] Mobile Home Draw [address] [place] [address] 03/24/2024 2:30 PM EDT Office Visit Hematology/Oncolo gy [facility] [address] [place] [address] Ayaka Tatum CRNP [address] [place] [address] 03/30/2024 12:00 PM EDT Office Visit Family Practice [facility] [address] [place] [address] Kristen Vences DO [address] [place] [address] 03/31/2024 8:40 AM EDT Laboratory Lab Mobile Phlebotomy [facility] [address] [place] [address] [facility], [facility] Mobile Home Draw [address] [place] [address] 04/07/2024 10:00 AM EDT Office Visit Gastroenterology, [facility] [address] [place] [address] Lamar Tatum CRNP [address] [place] [address] 04/14/2024 8:40 AM EDT Laboratory Lab [facility] [address] [place] [address] [facility] Mobile Home Draw [address] [place] [address] 04/28/2024 8:40 AM EDT Laboratory Lab Mobile Phlebotomy [facility] [address] [place] [address] [facility], [facility] Mobile Home Draw [address] [place] [address] 05/12/2024 8:40 AM EDT Laboratory Lab Mobile Phlebotomy [facility] [address] [place] [address] [facility], [facility] Mobile Home Draw [address] [place] [address] 05/26/2024 8:40 AM EDT Laboratory Lab Mobile Phlebotomy [facility] [address] [place] [address] [facility], [facility] Mobile Home Draw [address] [place] [address] 06/09/2024 8:40 AM EDT Laboratory Lab Mobile Phlebotomy [facility] [address] [place] [address] [facility], [facility] Mobile Home Draw [address] [place] [address] 06/23/2024 8:40 AM EDT Laboratory Lab Mobile Phlebotomy [facility] [address] [place] [address] [facility], [facility] Mobile Home Draw [address] [place] [address] 07/07/2024 8:40 AM EDT Laboratory Lab Mobile Phlebot[facility] [address] [place] [address] [facility], [facility] Mobile Home Draw [address] [place] [address] 07/21/2024 8:40 AM EDT Laboratory Lab Mobile Phlebotomy [facility] [address] [place] [address] [facility], [facility] Mobile Home Draw [address] [place] [address] 08/04/2024 8:40 AM EDT Laboratory Lab Mobile Phlebotomy [facility] [address] [place] [address] [facility], [facility] Mobile Home Draw [address] [place] [address] 08/18/2024 8:40 AM EDT Laboratory Lab Mobile Phlebotomy [facility] [address] [place] [address] [facility], [facility] Mobile Home Draw [address] [place] [address] 08/20/2024 10:15 AM EDT Office Visit Ophthalmology, [facility] [address] [place] [address] Cody Gonzalez DO [address] [place] [address] 09/01/2024 8:40 AM EDT Laboratory Lab Mobile Phlebotomy [facility] [address] [place] [address] [facility], [facility] Mobile Home Draw [address] [place] [address] 09/15/2024 8:40 AM EDT Laboratory Lab Mobile Phlebotomy [facility] [address] [place], [place] [address] [facility], [facility] Mobile Home Draw [address] [place] [address] Scheduled Procedures Name Priority Associated Diagnoses Date/Ti [...] Additional history exists CKD PHOS USE SMARTSET 48864 01/28/202401/03, 07/26/2022, 12/05/2021, Additional history exists Diabetic Foot Exam 03/06/2024 03/06/2023, 0 01/03/2022, 03/02/2021, Additional history exists HbA1c 05/28/2024 11/27/2023, 05/03, 01/28/2023, Additional history exists GFR 06/22/2024 12/23/2023, 11/01, 08/30/2023, Additional history exists Albumin/Creatinine Ratio 07/12/2024 023, 10/01/2022, 09/11/2021, Additional history exists COLONOSCOPY-ANNUAL AGES 18-100 08/09/2024 08/09/2023, 11/07/2022, 11/07/2022, Additional history exists CKD HGB USE SMARTSET 43314 01/07/202501/07, 01/07/2024, 12/26/2023, Additional history exists Lipid [...] encounter Medical Devices Implanted Type Area Bulk Filler Device Identifier Shelf Expiration Date Model / Serial / Lot Clareon Iol Aspheric Hydrophobic Acrylic Iol Implanted:Qty: 1 on 04/23/2023 by Cody Gonzalez DO at OR [facility] Lens Left: Eye 11/12/2025 [id number] / [id number] / Viatorr Tips Endoprosthesis 8-10 Mm X 8cm / 2cm Implanted:Qty: 1 on 10/07/2020 by Go Alvarado MD at [facility] Right: Abdomen 03/03/2023 [id number] / / [id number] Description:Viatorr TIPS End oprosthesis 8-10 mm x 8cm / 2cm, Manufactored by [employer] Syr Pf 2ml Embospheres 100-300 - [id number] Implanted:Qty: 1 on 04/18/2021 by Kevin Lim DO at OR [facility] Left: Abdomen [employer] [id number] 11/25/2023 S220GH / / [id number] Syr Pf 2ml Embospheres 100-300 - [id number] Implanted:Qty: 1 on 03/28/2022 at [facility] [employer] [id number] 08/31/2024 S220GH / / [id number] Clareon Iol Aspheric Hydrophobic Acrylic Iol Implanted:Qty: 1 on 04/02/2023 by Cody Gonzalez DO at OR [facility] Right: Eye JAZMIN 11/12/2025 [id number] / [id number] / documented as of this encounter Advance Directives Documents on File Type Date Recorded Patient Online Editor Expl anation Advance Directives and Living Will 12/11/2022 ADVANCE DIRECTIVE / LIVING WILL LIVING WILL Power of Cross Roller 12/11/2022 POWER OF A TTORNEY Latest Code [...] the patient have Health Care Power of Cross Roller? No Full Code 07/22/2014 9:56 PM 07/24/2014 8:18 PM This order reflects the patients wishes and were consensually agreed upon. Question Answer Comments Discussion of Advance Directives occurred with: Patient Does the patient have a Living Will? No Does the patient have Health Care Power of Cross Roller? No Care Teams Court Security Officer Relationship Specialty Start Date End Date Francisco Cisse MD [address] [facility] [place] [address] PCP - General Internal Medicine 09/04/21 documented as of this encounter
--- OUTSIDE RECORDS SUMMARY | 2024-01-25 17:09 | External Medical Summary ---
Author Name Unknown Address Unknown Organization K0G:LABORATORY [facility] [address] - [address] [place] [address] Laboratory Report Ordering Provider Test Date Status CHELSEY BISWAS 01/17/2024 13:02:28 Final Observation Date Value Abnormality Reference (Units ) Status BUN 01/17/2024 13:02:28 21 Above high normal 6-20 (mg/dL) Final Creatinine 01/17/2024 13:02:28 1.1 0.6-1.2 (mg/dL) Final Glomerular filtration rate/1.73 sq M.predicted [Volume Rate/Area] in Serum, Plasma or Blood by Creatinine-based formula (CKD-EPI) 01/17/2024 13:02:28 69 >=60 (mL/min) Final eGFR is calculated based on the CKD-EPI 2020 equation SODIUM 01/17/2024 13:02:28 139 135-146 (m mol/L) Final Potassium 01/17/2024 13:02:28 4.7 3.5-5.1 (m mol/L) Final Cl 01/17/2024 13:02:28 107 98-107 (mm ol/L) Final CO2 01/17/2024 13:02:28 21 Below low normal 22- 32 (mmol/L) Final Anion gap 01/17/2024 13:02:28 11 7-15 (mmol /L) Final Glucose 01/17/2024 13:02:28 256 Above high normal 70 -120 (mg/dL) Final Albumin 01/17/2024 13:02:28 2.9 Below low normal 3.8 -5.0 (g/dL) Final AST (Aspartate aminotransferase) 01/17/2024 13:02:28 43 10-50 (U/L) Fin al Alk Phos 01/17/2024 13:02:28 197 Above high normal 35 -130 (U/L) Final Bilirubin, Total 01/17/2024 13:02:28 2.3 Above high no rmal <=1.2 (mg/dL) Final Calcium 01/17/2024 13:02:28 8.3 Below low normal 8.4 -10.2 (mg/dL) Final Protein 01/17/2024 13:02:28 6.4 6.0-8.3 (g /dL) Final ALT (Alanine aminotransferase) 01/17/2024 13:02:28 21 10-50 (U/L) Layo dye Performing Location [facility] 0 - [address] [facility] [address]
--- OUTSIDE RECORDS SUMMARY | 2024-01-25 17:09 | External Medical Summary ---
Author Name Unknown Address Unknown Organization K01:[facility] - [address] [place] [address] Laboratory Report Ordering Provider Test Date Status ZULAY,CHELSEY 01/17/2024 13:02:28 Final Observation Date Value Abnormality Reference (Units ) Status PSA 01/17/2024 13:02:28 <0.02 <4.10 (ng/ mL) Final Performing Location [facility] - [address] [place] [address]
--- OUTSIDE RECORDS SUMMARY | 2024-01-25 17:09 | External Medical Summary | Summary of Care ---
Author Name Unknown Organization [facility] Address [address] [place] [address] Phone [phone] Care Team Providers Care Night Nurse Name Role Phone Francisco Cisse MD Primary Care Provider + Reason for Visit * Reason Onset Date Comments case management 01/17/2024 Encounter Details Date Type Department Care Team (Late st Contact Info) Description 01/17/2024 Telephone Care Coordination and Integration [address] [place], [place] [phone] Ximena Pretty RN [address], [place] [phone] case management Allergies No known active allergiesdocumented [...] hemoglobin A1c goal of less than 7.0% ([facility]) Use to test blood [...] mRNA, LNP-s, No Pre serve, 2-Dose Series (FreshGrade) 03/08/2021,02/15/2021 HepA Inact/HepB Recomb>=18yrs old 12/04/2019,04/2019,05/20/2019 11/19/2019 PPD 06/18/2017, 3,01/09/2012,0306/2011 Pneumococcal Conjugate Vacc, 13 Valent (Prevnar) 05/01/2017 Pneumococcal Polysaccharide PPV23 (Pneumovax) 08/28/2022,10/25/2015,07/14/2012 Season Influenza, Quad, PF, Adjuvanted, 65+ Yrs, IM (FLUAD) 10/07/2020(Deferred: Patient Refused - pt says he already had his shot last month at [facility] Handy Lyons and Mckinley Cobian [...] encounter Miscellaneous Notes * Telephone Encounter - Ximena Pretty RN - 01/17/2024 8:13 AM EST Please discharge the patient from [facility] [place] Device(s)/IVR to be discontinued: PD IVR Calls due to Completion. Thank you. documented in this encounter Plan of Treatment Upcoming Encounters Date Type Department Care Team (Latest Contact Info) Description 01/21/2024 8:40 AM EST Laboratory Lab Mobile Phlebotomy [facility] [address] [place] [address] [facility] Mobile Home Draw [address] [place] [address] 01/21/2024 10:15 AM EST Cardiac Studies Cardiac Studies, [address] [place] [address] 01/30/2024 12:42 PM EST Hospital Encounter OR [facility], Operating Room, [facility] - 4th Floor [address] [place] [address] Frank Peraza MD [address] [address] [place] [address] 01/30/2024 12:42 PM EST - 01/30/2024 1:44 PM EST Surgery OR [facility], Operating Room, [facility] - 4th Floor [address] [place] [address] Frank Peraza MD [address] [place] [address] [facility] [place] [address] CYSTOURETHROSCOPY WITH FULGURATION MEDIUM BLADDER TUMOR 02/04/2024 8:40 AM EST Laboratory Lab Mobile Phlebotomy [facility] [address] [place] [address] [facility] Mobile Home Draw [address] [place] [address] 02/07/2024 11:00 AM EST Telemedicine [facility], [place] [address] [place] [address] Aidee Miller PA-C [address] [place] [address] Kriss Mays, Community Health Hostess Cashier [address] [place] [address] 02/14/2024 2:45 PM EDT Office Visit Urology Lynnette Fitzpatrick [address] [place] [address] Frank Peraza MD [address] [place] [address] 02/18/2024 8:40 AM EDT Laboratory Lab Mobile Phlebotomy [facility] [address] [place] [address] [facility] Mobile Home Draw [address] [place] [address] 03/03/2024 8:40 AM EDT Laboratory Lab Mobile Phlebotomy [facility] [address] [place] [address] Gm, [facility] Mobile Home Draw [address] [place] [address] 03/13/2024 2:00 PM EDT Office Visit Dermatology [facility] [address] [place], [place] [address] Francisco Watson MD [address] [place] [address] 03/17/2024 8:40 AM EDT Laboratory Lab Mobile Phlebotomy [facility] [address] [place] [address] [facility] Mobile Home Draw [address] [place] [address] 03/24/2024 2:30 PM EDT Office Visit Hematology/Oncolo gy [facility] [address] [place] [address] Ayaka Tatum CRNP [address] [place] [address] 03/30/2024 12:00 PM EDT Office Visit Family Practice [facility] [address] [place] [address] Kristen Vences DO [address] [facility] [place] [address] 03/31/2024 8:40 AM EDT Laboratory Lab Mobile Phlebotomy [facility] [address] [place] [address] [facility] Mobile Home Draw [address] [place] [address] 04/07/2024 10:00 AM EDT Office Visit Gastroenterology, [facility] [address] [facility] [place] [address] Lamar Tatum CRNP [address] [place] [address] 04/14/2024 8:40 AM EDT Laboratory Lab Mobile Phlebotomy [facility] [address] [place] [address] [facility], [facility] Mobile Home Draw [address] [place] [address] 04/28/2024 8:40 AM EDT Laboratory Lab Mobile Phlebotomy [facility] [address] [place] [address] [facility], [facility] Mobile Home Draw [address] [place] [address] 05/12/2024 8:40 AM EDT Laboratory Lab Mobile Phlebotomy [facility] [address] [place] [address] [facility], [facility] Mobile Home Draw [address] [place] [address] 05/26/2024 8:40 AM EDT Laboratory Lab Mobile Phlebotomy [facility] [address] [place] [address] [facility], [facility] Mobile Home Draw [address] [place] [address] 06/09/2024 8:40 AM EDT Laboratory Lab Mobile Phlebotomy [facility] [address] [place] [address] [facility], [facility] Mobile Home Draw [address] [place] [address] 06/23/2024 8:40 AM EDT Laboratory Lab Mobile Phlebotomy [facility] [address] [place] [address] [facility], [facility] Mobile Home Draw [address] [place] [address] 07/07/2024 8:40 AM EDT Laboratory Lab Mobile Phlebotomy [facility] [address] [place] [address] [facility], [facility] Mobile Home Draw [address] [place] [address] 07/21/2024 8:40 AM EDT Laboratory Lab Mobile Phlebotomy [facility] [address] [place] [address] [facility] Mobile Home Draw [address] [place] [address] 08/04/2024 8:40 AM EDT Laboratory Lab Mobile Phlebotomy [facility] [address] [place] [address] [facility] Mobile Home Draw [address] [place] [address] 08/18/2024 8:40 AM EDT Laboratory Lab Mobile Phlebotomy [facility] [address] [place] [address] [facility] Mobile Home Draw [address] [place] [address] 08/20/2024 10:15 AM EDT Office Visit Ophthalmology, [address] [address] Cody Gonzalez DO [address] [place] [address] 09/01/2024 8:40 AM EDT Laboratory Lab Mobile Phlebotomy [facility] [address] [place] [address] [facility] Mobile Home Draw [address] [place] [address] 09/15/2024 8:40 AM EDT Laboratory Lab Mobile Phlebotomy [facility] [address] [place] [address] [facility] Mobile Home Draw [address] [place] [address] Scheduled Procedures Name Priority Associated Diagnoses Date/Ti [...] Additional history exists CKD PHOS USE SMARTSET 26182 01/28/202401/03, 07/26/2022, 12/05/2021, Additional history exists Diabetic Foot Exam 03/06/2024 03/06/2023, 0 01/03/2022, 03/02/2021, Additional history exists HbA1c 05/28/2024 11/27/2023, 05/03, 01/28/2023, Additional history exists GFR 06/22/2024 12/23/2023, 11/01, 08/30/2023, Additional history exists Albumin/Creatinine Ratio 07/12/2024 023, 10/01/2022, 09/11/2021, Additional history exists COLONOSCOPY-ANNUAL AGES 18-100 08/09/2024 08/09/2023, 11/07/2022, 11/07/2022, Additional history exists CKD HGB USE SMARTSET 15830 01/07/202501/07, 01/07/2024, 12/26/2023, Additional history exists Lipid [...] this encounter Medical Devices Implanted Type Area Stock Layer Device Identifier Shelf Expiration Date Model / Serial / Lot Clareon Iol Aspheric Hydrophobic Acrylic Iol Implanted:Qty: 1 on 04/23/2023 by Cody Gonzalez DO at OR [facility] Lens Left: Eye 11/12/2025 CNA0T0 / [id number] / Viatorr Tips Endoprosthesis 8-10 Mm X 8cm / 2cm Implanted:Qty: 1 on 10/07/2020 by Go Alvarado MD at [facility] Right: Abdomen 03/03/2023 [id number] / / [id number] Description:Viatorr TIPS End oprosthesis 8-10 mm x 8cm / 2cm, Manufactored by [employer] Syr Pf 2ml Embospheres 100-300 - [id number] Implanted:Qty: 1 on 04/18/2021 by Kevin Lim DO at OR [facility] Left: Abdomen [employer] [id number] 11/25/2023 S220GH / / [id number] Lipiodol Injection - [id number] Implanted:Qty: 1 on 03/28/2022 at [facility] [employer] 03/01/2023 [id number] 01-2 / / [id number] Syr Pf 2ml Embospheres 100-300 - [id number] Implanted:Qty: 1 on 03/28/2022 at [facility] [employer] [id number] 08/31/2024 S220GH / / [id number] -[id number] Clareon Iol Aspheric Hydrophobic Acrylic Iol Implanted:Qty: 1 on 04/02/2023 by Cody Gonzalez DO at OR [facility] Right: Eye JAZMIN 11/12/2025 CNA0T0 / [id number] / documented as of this encounter Advance Directives Documents on File Type Date Recorded Patient Training Instructor Expl anation Advance Directives and Living Will 12/11/2022 ADVANCE DIRECTIVE / LIVING WILL LIVING WILL Power of Home Health Care Social Worker 12/11/2022 POWER OF A TTORNEY Latest [...] the patient have Health Care Power of Home Health Care Social Worker? No Full Code 07/22/2014 9:56 PM 07/24/2014 8:18 PM This order reflects the patients wishes and were consensually agreed upon. Question Answer Comments Discussion of Advance Directives occurred with: Patient Does the patient have a Living Will? No Does the patient have Health Care Power of Home Health Care Social Worker? No Care Teams Night Nurse Relationship Specialty Start Date End Date Francisco Cisse MD [address] [place] [address] PCP - General Internal Medicine 09/04/21 documented as of this encounter
--- OUTSIDE RECORDS SUMMARY | 2024-01-25 17:09 | External Medical Summary | Summary of Care ---
Author Name Unknown Organization [facility] Address [address] [facility] [place] [address] Phone [phone] Care Team Providers Care Deck Mechanic Name Role Phone Francisco Cisse MD Primary Care Provider + Reason for Referral * Precert (Within 10 days (routine)) - Authorized Specialty Diagnoses / Procedures Referred By Chacho fleming Referred To Contact Radiology Diagnoses HCC (hepatocellular carcinoma) (HCC) Procedures IR CANCER CHEMO EMBOLIZATION (TACE) Lamar Tatum CRNP [address] [place] [address] Referral ID Status Reason Start Date Expiration Date V isits Requested Visits Authorized [id number] Authorized 01/23/2024 999 999 Reason for Visit * Reason Onset Date Comments Referral Requested by Specialist 01/09/2024 Encounter Details Date Type Department Care Team (Late st Contact Info) Description 01/09/2024 Telephone Gastroenterology, [facility] [address] [place] [address] Lamar Tatum CRNP [address] [place] [address] Referral Requested by Specialist Allergies No known active allergiesdocumented as of this encounter (statuses as of 01/09/2024) Medications Medication Sig Dispensed Refills Start Date [...] as of this encounter (statuses as of 01/09/2024) Active Problems Problem Noted Date Diagnosed Date [...] as of this encounter (statuses as of 01/09/2024) Resolved Problems Problem Noted Date Diagnosed Date [...] as of this encounter (statuses as of 01/09/2024) Immunizations Name Administration Dates Next Due COVID-19 mRNA, LNP-s, No Pre serve, 2-Dose Series ([employer]) 03/08/2021,02/15/2021 HepA Inact/HepB Recomb>=18yrs old 12/04/2019,04/2019,05/20/2019 11/19/2019 PPD 06/18/2017, 3,01/09/2012,06/2011 Pneumococcal Conjugate Vacc, 13 Valent (Prevnar) 05/01/2017 Pneumococcal Polysaccharide PPV23 (Pneumovax) 08/28/2022,10/25/2015,07/14/2012 Season Influenza, Quad, PF, Adjuvanted, 65+ Yrs, IM (FLUAD) 10/07/2020(Deferred: Patient Refused - pt says he already had his shot last month at [facility] Lyons and Mckinley Cobian [...] Telephone Encounter - Lamar Tatum CRNP - 01/09/2024 3:13 PM EST I spoke w the pt by phone yesterday, then presented his new CT/MRI findings (at [facility] in December) tothe multidisciplinary liver meeting (tumor board). The group reviewed the images and recommend referral to IR for tx of enlarging left lobe of the liver lesion. The did not see the second lesion mentioned on CT also at [facility]. IR referral placed. Unable to reach by phone today. Will message him. documented in this encounter Plan of Treatment Upcoming Encounters Date Type Department Care Team (Latest Contact Info) Description 01/21/2024 8:40 AM EST Laboratory Lab Mobile Phlebotomy [facility] [address] [place] [address] [facility] Mobile Home Draw [address] [place] [address] 01/21/2024 10:15 AM EST Cardiac Studies Cardiac Studies, [facility] [address] [facility] [place] [address] 01/30/2024 12:42 PM EST Hospital Encounter OR [facility], Operating Room, [facility] - 4th Floor [address] [facility] [place] [address] Frank Peraza MD [address] [place] [address] [place] [address] 01/30/2024 12:42 PM EST - 01/30/2024 1:44 PM EST Surgery OR [facility], Operating Room, [facility] - 4th Floor [address] [facility] [place] [address] Frank Peraza MD [address] [place] [address] CYSTOURETHROSCOPY WITH FULGURATION MEDIUM BLADDER TUMOR 02/04/2024 8:40 AM EST Laboratory Lab Mobile Phlebotomy [facility] [address] [place] [address] [facility] Mobile Home Draw [address] [place] [address] 02/07/2024 11:00 AM EST Telemedicine ising at [place], [place] [address] [place] [address] Aidee Miller PA-C [address] [place] [address] Kriss Mays, Community Health Community Engagement Leader [address] [place] [address] 02/14/2024 2:45 PM EDT Office Visit Urology Lynnette Fitzpatrick [address] [place] [address] Frank Peraza MD [address] [place] [address] 02/18/2024 8:40 AM EDT Laboratory Lab Mobile Phlebotomy [facility] [address] [place] [address] [facility], [facility] Mobile Home Draw [address] [place] [address] 03/03/2024 8:40 AM EDT Laboratory Lab Mobile Phlebotomy [facility] [address] [place] [address] [facility], [facility] Mobile Home Draw [address] [place] [address] 03/13/2024 2:00 PM EDT Office Visit Dermatology [facility] [address] [facility] [place] [address] Francisco Watson MD 200 [facility] [place] [address] 03/17/2024 8:40 AM EDT Laboratory Lab Mobile Phlebotomy [facility] [address] [place] [address] [facility], [facility] Mobile Home Draw [address] [place] [address] 03/24/2024 2:30 PM EDT Office Visit Hematology/Oncolo gy [facility] 200 [facility] [place] [address] Ayaka Tatum CRNP 400 [place] [address] 03/30/2024 12:00 PM EDT Office Visit [facility] [place] [address] Kristen Vences, [address] [place] [address] 03/31/2024 8:40 AM EDT Laboratory Lab Mobile Phlebotomy [facility] [address] [place] [address] [facility], [facility] Mobile Home Draw [address] [place] [address] 04/07/2024 10:00 AM EDT Office Visit Gastroenterology, [facility] [address] [place] [address] Lamar Tatum CRNP [address] [place] [address] 04/14/2024 8:40 AM EDT Laboratory Lab Mobile Phlebotomy [facility] [address] [place] [address] [facility], [facility] Mobile Home Draw [address] [place] [address] 04/28/2024 8:40 AM EDT Laboratory Lab Mobile Phlebotomy [facility] [address] [place] [address] [facility], [facility] Mobile Home Draw [address] [place] [address] 05/12/2024 8:40 AM EDT Laboratory Lab Mobile Phlebotomy [facility] [address] [place] [address] [facility], [facility] Mobile Home Draw [address] [place] [address] 05/26/2024 8:40 AM EDT Laboratory Lab Mobile Phlebotomy C [address] [place] [address] [facility], [facility] Mobile Home Draw [address] [place] [address] 06/09/2024 8:40 AM EDT Laboratory Lab Mobile Phlebotomy [facility] [address] [place] [address] [facility], [facility] Mobile Home Draw [address] [place] [address] 06/23/2024 8:40 AM EDT Laboratory Lab Mobile Phlebotomy [facility] [address] [place] [address] [facility], [facility] Mobile Home Draw [address] [place] [address] 07/07/2024 8:40 AM EDT Laboratory Lab Mobile Phlebotomy [facility] [address] [place] [address] [facility], [facility] Mobile Home Draw [address] [place] [address] 07/21/2024 8:40 AM EDT Laboratory Lab Mobile Phlebotomy [facility] [address] [place] [address] [facility], [facility] Mobile Home Draw [address] [place] [address] 08/04/2024 8:40 AM EDT Laboratory Lab Mobile Phlebotomy [facility] [address] [place] [address] [facility], [facility] Mobile Home Draw [address] [place] [address] 08/18/2024 8:40 AM EDT Laboratory Lab Mobile Phlebotomy [facility] [address] [place] [address] [facility], [facility] Mobile Home Draw [address] [place] [address] 08/20/2024 10:15 AM EDT Office Visit Ophthalmology, [address] [address] Cody Gonzalez, DO [address] [place] [address] 09/01/2024 8:40 AM EDT Laboratory Lab Mobile Phlebotomy [facility] [address] [place] [address] [facility], [facility] Mobile Home Draw [address] [place] [address] 09/15/2024 8:40 AM EDT Laboratory Lab Mobile Phlebotomy [facility] [address] [place] [address] [facility], [facility] Mobile Home Draw [address] [place] [address] Scheduled Orders Name Type Priority Associated Diagnoses [...] Additional history exists CKD PHOS USE SMARTSET 46128 01/28/202401/03, 07/26/2022, 12/05/2021, Additional history exists Diabetic Foot Exam 03/06/2024 03/06/2023, 0 01/03/2022, 03/02/2021, Additional history exists HbA1c 05/28/2024 11/27/2023, 05/03, 01/28/2023, Additional history exists GFR 06/22/2024 12/23/2023, 11/01, 08/30/2023, Additional history exists Albumin/Creatinine Ratio 07/12/2024 023, 10/01/2022, 09/11/2021, Additional history exists COLONOSCOPY-ANNUAL AGES 18-100 08/09/2024 08/09/2023, 11/07/2022, 11/07/2022, Additional history exists CKD HGB USE SMARTSET 38657 01/07/202501/07, 01/07/2024, 12/26/2023, Additional history exists Lipid [...] encounter Medical Devices Implanted Type Area Medication Assistant Device Identifier Shelf Expiration Date Model / Serial / Lot Mary Annon Iol Aspheric Hydrophobic Acrylic Iol Implanted:Qty: 1 on 04/23/2023 by Cody Gonzalez DO at OR [facility] Lens Left: Eye 11/12/2025 CNA0T0 / [id number] / Viatorr Tips Endoprosthesis 8-10 Mm X 8cm / 2cm Implanted:Qty: 1 on 10/07/2020 by Go Alvarado MD at [facility] Right: Abdomen 03/03/2023 [id number] / / [id number] Description:Viatorr TIPS End oprosthesis 8-10 mm x 8cm / 2cm, Manufactored by [employer] Syr Pf 2ml Embospheres 100-300 - [id number] Implanted:Qty: 1 on 04/18/2021 by Kevin Lim DO at OR [facility] Left: Abdomen [employer] [id number] 11/25/2023 S220GH / / [id number] -[id number] Syr Pf 2ml Embospheres 100-300 - [id number] Implanted:Qty: 1 on 03/28/2022 at [facility] [employer] [id number] 08/31/2024 S220GH / / [id number] -[id number] Clareon Iol Aspheric Hydrophobic Acrylic Iol Implanted:Qty: 1 on 04/02/2023 by Cody Gonzalez DO at OR 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 No Full Code 07/22/2014 9:56 PM 07/24/2014 8:18 PM This order reflects the patients wishes and were consensually agreed upon. Question Answer Comments Discussion of Advance Directives occurred with: Patient Does the patient have a Living Will? No Does the patient have Health Care Power of Insurance Agency Owner? No Care Teams Deck Mechanic Relationship Specialty Start Date End Date Francisco Cisse MD [address] [place] [address] PCP - General Internal Medicine 09/04/21 documented as of this encounter
--- OUTSIDE RECORDS SUMMARY | 2024-01-25 17:09 | External Medical Summary | Summary of Care ---
Author Name Unknown Organization [facility] Address [address] [place] [address] Phone [phone] Care Team Providers Care Physician Office Rep Name Role Phone Francisco Cisse MD Primary Care Provider + Reason for Visit * Reason Onset Date Comments Abnormal Lab Results 01/09/2024 CBCD Encounter Details Date Type Department Care Team (Late st Contact Info) Description 01/09/2024 Telephone Hematology/Oncology [facility] 200 [facility] [address] Ayaka Tatum CRNP 400 [facility] [place] [address] Abnormal Lab Results (CBCD) Allergies No [...] less than 7.0% ([facility]) Use to test blood sugars 3 times [...] mRNA, LNP-s, No Pre serve, 2-Dose Series ([employer]) 03/08/2021,02/15/2021 HepA Inact/HepB Recomb>=18yrs old 12/04/2019,04/2019,05/20/2019 11/19/2019 PPD 06/18/2017, 3,01/09/2012,0306/2011 Pneumococcal Conjugate Vacc, 13 Valent (Prevnar) 05/01/2017 Pneumococcal Polysaccharide PPV23 (Pneumovax) 08/28/2022,10/25/2015,07/14/2012 Season Influenza, Quad, PF, Adjuvanted, 65+ Yrs, IM (FLUAD) 10/07/2020(Deferred: Patient Refused - pt says he already had his shot last month at [facility]y Lyons and Mckinley Cobian [...] 8:40 AM EST Laboratory Lab Mobile Phlebotomy [facility] [address] [place] [address] [facility], [facility] Mobile Home Draw [address] [place] [address] 01/21/2024 10:15 AM EST Cardiac Studies Cardiac Studies, [address] [place] [address] 01/30/2024 12:42 PM EST Hospital Encounter OR [facility], Operating Room, [facility] - 4th Floor [address] [place] [address] Frank Peraza MD [address] [place] [address] 01/30/2024 12:42 PM EST - 01/30/2024 1:44 PM EST Surgery OR [facility], Operating Room, [facility] - 4th Floor [address] [place] [address] Frank Peraza MD [address] [place] [address] CYSTOURETHROSCOPY WITH FULGURATION MEDIUM BLADDER TUMOR 02/04/2024 8:40 AM EST Laboratory Lab Mobile Phlebotomy [facility] [address] [place] [address] [facility], [facility] Mobile Home Draw [address] [place] [address] 02/07/2024 11:00 AM EST Telemedicine [facility] [place] [address] [place] [address] Aidee Miller PA-C [address] [place] [address] Kriss Mays, Community Health Bus Trolley And Taxi Instructor [address] [place] [address] 02/14/2024 2:45 PM EDT Office Visit Urology Lynnette Fitzpatrick [address] [place] [address] Frank Peraza MD [address] [place] [address] 02/18/2024 8:40 AM EDT Laboratory Lab Mobile Phlebotomy [facility] [address] [place] [address] Gm, [facility] Mobile Home Draw [address] [place] [address] 03/03/2024 8:40 AM EDT Laboratory Lab Mobile Phlebotomy [facility] [address] [place] [address] [facility], [facility] Mobile Home Draw [address] [place] [address] 03/13/2024 2:00 PM EDT Office Visit Dermatology [facility] 200 [facility] [place] [address] Francisco Watson MD 200 [place] [address] 03/17/2024 8:40 AM EDT Laboratory Lab Mobile Phlebotomy [facility] [address] [place] [address] [facility], [facility] Mobile Home Draw [address] [place] [address] 03/24/2024 2:30 PM EDT Office Visit Hematology/Oncolo gy [facility] [address] [place] [address] Ayaka Tatum CRNP [address] [place] [address] 03/30/2024 12:00 PM EDT Office Visit Family Practice [facility] [address] [place] [address] Kristen Vences DO [address] [place] [address] 03/31/2024 8:40 AM EDT Laboratory Lab Mobile Phlebotomy [facility] [address] [place] [address] [facility], [facility] Mobile Home Draw [address] [place] [address] 04/07/2024 10:00 AM EDT Office Visit Gastroenterology, [facility] [address] [place] [address] Lamar Tatum CRNP [address] [place] [address] 04/14/2024 8:40 AM EDT Laboratory Lab Mobile Phlebotomy [facility] [address] [place] [address] [facility], [facility] Mobile Home Draw [address] [place] [address] 04/28/2024 8:40 AM EDT Laboratory Lab Mobile Phlebotomy [facility] [address] [place] [address] [facility], [facility] Mobile Home Draw [address] [place] [address] 05/12/2024 8:40 AM EDT Laboratory Lab Mobile Phlebotomy [facility] [address] [place] [address] [facility], [facility] Mobile Home Draw [address] [place] [address] 05/26/2024 8:40 AM EDT Laboratory Lab Mobile Phlebotomy [facility] [address] [place] [address] [facility], [facility] Mobile Home Draw [address] [place] [address] 06/09/2024 8:40 AM EDT Laboratory Lab Mobile Phlebotomy [facility] [address] [place] [address] Gmc, [facility] Mobile Home Draw [address] [place] [address] 06/23/2024 8:40 AM EDT Laboratory Lab Mobile Phlebotomy [facility] [address] [place] [address] [facility], [facility] Mobile Home Draw [address] [place] [address] 07/07/2024 8:40 AM EDT Laboratory Lab Mobile Phlebotomy [facility] [address] [place] [address] [facility], [facility] Mobile Home Draw [address] [place] [address] 07/21/2024 8:40 AM EDT Laboratory Lab Mobile Phlebotomy [facility] [address] [place] [address] [facility], [facility] Mobile Home Draw [address] [place] [address] 08/04/2024 8:40 AM EDT Laboratory Lab Mobile Phlebotomy [facility] [address] [place] [address] [facility], [facility] Mobile Home Draw [address] [place] [address] 08/18/2024 8:40 AM EDT Laboratory Lab Mobile Phlebotomy [facility] [address] [place] [address] [facility]mc, [facility] Mobile Home Draw [address] [place] [address] 08/20/2024 10:15 AM EDT Office Visit Ophthalmology, [facility] [address] [facility] [place] [address] Cody Gonzalez, DO [facility] [place] [address] 09/01/2024 8:40 AM EDT Laboratory Lab Mobile Phlebotomy [facility] [address] [place] [address] [facility], [facility] Mobile Home Draw [address] [place] [address] 09/15/2024 8:40 AM EDT Laboratory Lab Mobile Phlebotomy [facility] [address] [place] [address] [facility], [facility] Mobile Home Draw [address], [place] [address] Scheduled Procedures Name Priority Associated Diagnoses Date/Ti [...] Additional history exists CKD PHOS USE SMARTSET 38168 01/28/202401/03, 07/26/2022, 12/05/2021, Additional history exists Diabetic Foot Exam 03/06/2024 03/06/2023, 0 01/03/2022, 03/02/2021, Additional history exists HbA1c 05/28/2024 11/27/2023, 05/03, 01/28/2023, Additional history exists GFR 06/22/2024 12/23/2023, 11/01, 08/30/2023, Additional history exists Albumin/Creatinine Ratio 07/12/2024 023, 10/01/2022, 09/11/2021, Additional history exists COLONOSCOPY-ANNUAL AGES 18-100 08/09/2024 08/09/2023, 11/07/2022, 11/07/2022, Additional history exists CKD HGB USE SMARTSET 45367 01/07/202501/07, 01/07/2024, 12/26/2023, Additional history exists Lipid [...] encounter Medical Devices Implanted Type Area Sterile Processing Manager Device Identifier Shelf Expiration Date Model / Serial / Lot Clareon Iol Aspheric Hydrophobic Acrylic Iol Implanted:Qty: 1 on 04/23/2023 by Cody Gonzalez DO at OR [facility] Lens Left: Eye 11/12/2025 CNA0T0 / [id number] / Viatorr Tips Endoprosthesis 8-10 Mm X 8cm / 2cm Implanted:Qty: 1 on 10/07/2020 by Go Alvarado MD at [facility] Right: Abdomen 03/03/2023 [id number] / / [id number] Description:Viatorr TIPS End oprosthesis 8-10 mm x 8cm / 2cm, Manufactored by [employer] Syr Pf 2ml Embospheres 100-300 - [id number] Implanted:Qty: 1 on 04/18/2021 by Kevin Lim DO at OR [facility] Left: Abdomen [employer] [id number] 11/25/2023 S220GH / / [id number] -[id number] Syr Pf 2ml Embospheres 100-300 - [id number] Implanted:Qty: 1 on 03/28/2022 at [facility] [employer] [id number] 08/31/2024 S220GH / / [id number] -[id number] Clareon Iol Aspheric Hydrophobic Acrylic Iol Implanted:Qty: 1 on 04/02/2023 by Cody Gonzalez DO at OR [facility] Right: Eye JAZMIN 11/12/2025 CNA0T0 / [id number] / documented as of this encounter Advance Directives Documents on File Type Date Recorded 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 No Full Code 07/22/2014 9:56 PM 07/24/2014 8:18 PM This order reflects the patients wishes and were consensually agreed upon. Question Answer Comments Discussion of Advance Directives occurred with: Patient Does the patient have a Living Will? No Does the patient have Health Care Power of Law Enforcement Instructor? No Care Teams Physician Office Rep Relationship Specialty Start Date End Date Francisco Cisse MD 200 [place] [address] PCP - General Internal Medicine 09/04/21 documented as of this encounter
--- OUTSIDE RECORDS SUMMARY | 2024-01-25 17:09 | External Medical Summary | Summary of Care ---
Author Name Unknown Organization [facility] Address [address] [facility] [address] Phone [phone] Care Team Providers Care Biological Sciences Professor Name Role Phone Francisco Cisse MD Primary Care Provider + Encounter Details Date Type Department Care Team (Late st Contact Info) Description 01/09/2024 Orders Only General Internal Medicine [facility] 200 [facility] [place] [address] Francisco Cisse MD 200 [place] [address] Allergies No known active allergiesdocumented as of [...] goal of less than 7.0% ([facility]) Use to test blood sugars 3 times [...] mRNA, LNP-s, No Pre serve, 2-Dose Series ([employer]) 03/08/2021,02/15/2021 HepA Inact/HepB Recomb>=18yrs old 12/04/2019,04/2019,05/20/2019 11/19/2019 PPD 06/18/2017, 3,01/09/2012,06/2011 Pneumococcal Conjugate Vacc, 13 Valent (Prevnar) 05/01/2017 Pneumococcal Polysaccharide PPV23 (Pneumovax) 08/28/2022,10/25/2015,07/14/2012 Season Influenza, Quad, PF, Adjuvanted, 65+ Yrs, IM (FLUAD) 10/07/2020(Deferred: Patient Refused - pt says he already had his shot last month at [facility] Handy Lyons and Mckinley Cobian [...] 8:40 AM EST Laboratory Lab Mobile Phlebotomy [facility] [address] [place] [address] [facility], [facility] Mobile Home Draw [address] [place] [address] 01/21/2024 10:15 AM EST Cardiac Studies Cardiac Studies, [address] [address] 01/30/2024 12:42 PM EST Hospital Encounter [facility], Operating Room, [facility] - 4th Floor [address] [place] [place] [address] Frank Peraza MD [address] [place] [address] 01/30/2024 12:42 PM EST - 01/30/2024 1:44 PM EST Surgery [facility], Operating Room, [facility] - 4th Floor [address] [place] [address] Frank Peraza MD [address] [place] [address] CYSTOURETHROSCOPY WITH FULGURATION MEDIUM BLADDER TUMOR 02/04/2024 8:40 AM EST Laboratory Lab Mobile Phlebotomy [facility] [address] [place] [address] [facility], [facility] Mobile Home Draw [address] [place] [address] 02/07/2024 11:00 AM EST Telemedicine [facility] [place] [address] [place] [address] Aidee Miller PA-C [address] [place], [place] [phone] Kriss Mays, [facility] [employer] [address] [place] [address] 02/14/2024 2:45 PM EDT Office Visit Urology Lynnette Fitzpatrick [address] [place] [address] Frank Peraza MD [address] [place] [address] 02/18/2024 8:40 AM EDT Laboratory Lab Mobile Phlebotomy [facility] [address] [place] [address] [facility], l Mobile Home Draw [address] [place] [address] 03/03/2024 8:40 AM EDT Laboratory Lab Mobile Phlebotomy [facility] [address] [place] [address] [facility], [facility] Mobile Home Draw [address] [place] [address] 03/13/2024 2:00 PM EDT Office Visit Dermatology George Blankenship [place] 200 [facility] [place], [place] [address] Francisco Watson MD 200 [facility] [place], [place] [address] 03/17/2024 8:40 AM EDT Laboratory Lab Mobile Phlebotomy [facility] [address] [place] [address] [facility], [facility] Mobile Home Draw [address] [place] [address] 03/24/2024 2:30 PM EDT Office Visit Hematology/Oncolo gy [facility] [address] [place] [address] Ayaka Tatum CRNP [address] [place] [address] 03/30/2024 12:00 PM EDT Office Visit Family Practice [facility] [address] [place] [address] Kristen Vences DO [address] [place] [address] 03/31/2024 8:40 AM EDT Laboratory Lab Mobile Phlebotomy [facility] [address] [place] [address] [facility], [facility] Mobile Home Draw [address] [place] [address] 04/07/2024 10:00 AM EDT Office Visit Gastroenterology, [facility] [address] [place] [address] Lamar Tatum CRNP [address] [place] [address] 04/14/2024 8:40 AM EDT Laboratory Lab Mobile Phlebotomy [facility] [address] [place] [address] [facility], [facility] Mobile Home Draw [address] [place] [address] 04/28/2024 8:40 AM EDT Laboratory Lab Mobile Phlebotomy [facility] [address] [place] [address] [facility], [facility] Mobile Home Draw [address], [place] [address] 05/12/2024 8:40 AM EDT Laboratory Lab Mobile Phlebotomy [facility] [address] [place] [address] [facility] Mobile Home Draw [address] [place] [address] 05/26/2024 8:40 AM EDT Laboratory Lab Mobile Phlebotomy [facility] [address] [place] [address] [facility] Mobile Home Draw [address] [place] [address] 06/09/2024 8:40 AM EDT Laboratory Lab Mobile Phlebotomy [facility] [address] [place] [address] [facility] Mobile Home Draw [address] [place] [address] 06/23/2024 8:40 AM EDT Laboratory Lab Mobile Phlebotomy [facility] [address] [place] [address] [facility] Mobile Home Draw [address] [place] [address] 07/07/2024 8:40 AM EDT Laboratory Lab Mobile Phlebotomy [facility] [address] [place] [address] [facility] Mobile Home Draw [address] [place] [address] 07/21/2024 8:40 AM EDT Laboratory Lab Mobile Phlebotomy [facility] [address] [place] [address] [facility] Mobile Home Draw [address] [place] [address] 08/04/2024 8:40 AM EDT Laboratory Lab Mobile Phlebotomy [facility] [address] [place] [address] [facility] Mobile Home Draw [address] [place] [address] 08/18/2024 8:40 AM EDT Laboratory Lab Mobile Phlebotomy [facility] [address] [place] [address] [facility], [facility] Mobile Home Draw [address] [place] [address] 08/20/2024 10:15 AM EDT Office Visit Ophthalmology, [facility] [address] [place] [address] Cody Gonzalez DO [address] [place] [address] 09/01/2024 8:40 AM EDT Laboratory Lab Mobile Phlebotomy [facility] [address] [place] [address] [facility], [facility] Mobile Home Draw [address] [place] [address] 09/15/2024 8:40 AM EDT Laboratory Lab Mobile Phlebotomy [facility] [address] [place] [address] [facility], [facility] Mobile Home Draw [address] [place] [address] Pending Results Name Type Priority Associated Diagnoses Date /Time CHEMISTRY-OUTSIDE Lab Routine 024 Scheduled Procedures Name Priority Associated Diagnoses Date/Ti ak CYSTOURETHROSCOPY WITH FULGU RATION MEDIUM BLADDER TUMOR [...] Additional history exists CKD PHOS USE SMARTSET 97494 01/28/202401/03, 07/26/2022, 12/05/2021, Additional history exists Diabetic Foot Exam 03/06/2024 03/06/2023, 0 01/03/2022, 03/02/2021, Additional history exists HbA1c 05/28/2024 11/27/2023, 05/03, 01/28/2023, Additional history exists GFR 06/22/2024 12/23/2023, 11/01, 08/30/2023, Additional history exists Albumin/Creatinine Ratio 07/12/2024 023, 10/01/2022, 09/11/2021, Additional history exists COLONOSCOPY-ANNUAL AGES 18-100 08/09/2024 08/09/2023, 11/07/2022, 11/07/2022, Additional history exists CKD HGB USE SMARTSET 12345 01/07/202501/07, 01/07/2024, 12/26/2023, Additional history exists Lipid [...] this encounter Medical Devices Implanted Type Area Tableau Report Developer Device Identifier Shelf Expiration Date Model / Serial / Lot Clareon Iol Aspheric Hydrophobic Acrylic Iol Implanted:Qty: 1 on 04/23/2023 by Cody Gonzalez DO at [facility] Lens Left: Eye 11/12/2025 [id number] / [id number] / Viatorr Tips Endoprosthesis 8-10 Mm X 8cm / 2cm Implanted:Qty: 1 on 10/07/2020 by Go Alvarado MD at [facility] Right: Abdomen 03/03/2023 [id number] / / [id number] Description:Viatorr TIPS End oprosthesis 8-10 mm x 8cm / 2cm, Manufactored by [employer] Syr Pf 2ml Embospheres 100-300 - [id number] Implanted:Qty: 1 on 04/18/2021 by Kevin Lim DO at [facility] Left: Abdomen [employer] [id number] 11/25/2023 S220GH / / [id number] -5 Syr Pf 2ml Embospheres 100-300 - [id number] Implanted:Qty: 1 on 03/28/2022 at [facility] [employer] [id number] 08/31/2024 S220GH / / [id number] -5 Clareon Iol Aspheric Hydrophobic Acrylic Iol Implanted:Qty: 1 on 04/02/2023 by Cody Gonzalez DO at [facility] Right: Eye JAZMIN 11/12/2025 [id number] / [id number] / documented as of this encounter Advance Directives Documents on File Type Date Recorded Patient Shampoo Technician Expl anation Advance Directives and Living Will 12/11/2022 ADVANCE DIRECTIVE / LIVING WILL LIVING WILL Power of Stoneworker 12/11/2022 POWER OF A TTORNEY Latest Code [...] the patient have Health Care Power of Stoneworker? No Full Code 07/22/2014 9:56 PM 07/24/2014 8:18 PM This order reflects the patients wishes and were consensually agreed upon. Question Answer Comments Discussion of Advance Directives occurred with: Patient Does the patient have a Living Will? No Does the patient have Health Care Power of Stoneworker? No Care Teams Biological Sciences Professor Relationship Specialty Start Date End Date Francisco Cisse MD [address] [place] [address] PCP - General Internal Medicine 09/04/21 documented as of this encounter
--- OUTSIDE RECORDS SUMMARY | 2024-01-25 17:10 | External Medical Summary ---
Author Name Unknown Address Unknown Organization K01:LABORATORY [facility] - 100 [facility] [address] Laboratory Report Ordering Provider Test Date Status NEELAM RICCI 01/07/2024 11:32:00 Final Observation Date Value Abnormality Reference (Units ) Status SYNC LEUKOCYTES IN BLOOD BY AUTOMATED COUNT 01/07/2024 11:32:00 3.52 Below low normal 4.00-10.80 (K/uL) Final Segs 01/07/2024 11:32:00 64.1 40.0-75.0 (%) Final Lymphs % 01/07/2024 11:32:00 18.5 18.0-42.0 (%) Final Monos 01/07/2024 11:32:00 7.7 1.0-11.0 (%) Final Eosinophils 01/07/2024 11:32:00 8.2 Above high normal 0.0-6.0 (%) Final Basos 01/07/2024 11:32:00 0.6 0.0-2.0 (%) Final Immature Granulocyte, Percent 01/07/2024 11:32:00 0.9 0.0-2.0 (%) Final Absolute Segs 01/07/2024 11:32:00 2.26 1.80-7.70 (K/uL) Final Lymphs, absolute 01/07/2024 11:32:00 0.65 Below low normal 1.00-4.80 (K/ul) Final Monos, Abs 01/07/2024 11:32:00 0.27 0.00-1.10 (K/uL) Final Eos, Abs 01/07/2024 11:32:00 0.29 0.00-0.70 (K/uL) Final Basos, Abs 01/07/2024 11:32:00 0.02 0.00-0.20 (K/uL) Final Immature Granulocytes, Number 01/07/2024 11:32:00 0.03 0.00-0.20 (K/uL) Final Performing Location LABORATORY [facility] - [facility] [place] [address]
--- OUTSIDE RECORDS SUMMARY | 2024-01-25 17:10 | External Medical Summary | Summary of Care ---
Author Name Unknown Organization [facility] Address [address] [place] [address] Phone [phone] Care Team Providers Care Deicer Inspector Pneumatic Name Role Phone Francisco Cisse MD Primary Care Provider + Reason for Visit * Reason Onset Date Comments Appointment 01/07/2024 Encounter Details Date Type Department Care Team (Late st Contact Info) Description 01/07/2024 Telephone [facility] [place] [address] [place] [address] Services, Scheduling [address] [place] [address] Appointment (//) Allergies No known active allergiesdocumented as of this encounter (statuses as of 01/07/2024) Medications Medication Sig Dispensed Refills Start Date [...] as of this encounter (statuses as of 01/07/2024) Active Problems Problem Noted Date Diagnosed Date [...] as of this encounter (statuses as of 01/07/2024) Resolved Problems Problem Noted Date Diagnosed Date [...] as of this encounter (statuses as of 01/07/2024) Immunizations Name Administration Dates Next Due COVID-19 mRNA, LNP-s, No Pre serve, 2-Dose Series ([employer]) 03/08/2021,02/15/2021 HepA Inact/HepB Recomb>=18yrs old 12/04/2019,04/2019,05/20/2019 11/19/2019 PPD 06/18/2017, 3,01/09/2012,0306/2011 Pneumococcal Conjugate Vacc, 13 Valent (Prevnar) 05/01/2017 Pneumococcal Polysaccharide PPV23 (Pneumovax) 08/28/2022,10/25/2015,07/14/2012 Season Influenza, Quad, PF, Adjuvanted, 65+ Yrs, IM (FLUAD) 10/07/2020(Deferred: Patient Refused - pt says he already had his shot last month at [facility] [employer] Lyons and Mckinley Cobian [...] encounter Miscellaneous Notes * Telephone Encounter - Joshua Alvarez OSA - 01/07/2024 11:34 AM EST Call to pt and confirmed [place] telemed for 01/08 at 1pm, pt agreeable, confirmed address and connectivity documented in this encounter Plan of Treatment Upcoming Encounters Date Type Department Care Team (Latest Contact Info) Description 01/08/2024 1:00 PM EST Telemedicine [facility] [address] [place] [address] Aidee Miller PA-C [address] [place] [address] Kriss Mays, [facility] [employer] [address] [place] [address] 01/21/2024 8:40 AM EST Laboratory Lab Mobile Phlebotomy [facility] [address] [place] [address] [facility], [facility] Mobile Home Draw [address] [place] [address] 01/21/2024 10:15 AM EST Cardiac Studies Cardiac Studies, [address] [place] [address] 01/30/2024 12:42 PM EST Hospital Encounter [facility], Operating Room, [facility] - 4th Floor [address] [place] [address] [place] [address] Frank Peraza MD [address] [place] [address] 01/30/2024 12:42 PM EST - 01/30/2024 1:44 PM EST Surgery [facility], Operating Room, [facility] - 4th Floor [address] [place] [address] Frank Peraza MD [address] [place] [address] CYSTOURETHROSCOPY WITH FULGURATION MEDIUM BLADDER TUMOR 02/04/2024 8:40 AM EST Laboratory Lab Mobile Phlebotomy [facility] [address] [place] [address] [facility], [facility] Mobile Home Draw [address] [place] [address] 02/14/2024 2:45 PM EDT Office Visit Urology Lynnette Fitzpatrick [address] [place] [address] Frank Peraza MD [address] [place] [address] 02/18/2024 8:40 AM EDT Laboratory Lab Mobile Phlebotomy [facility] [address] [place] [address] [facility] Mobile Home Draw [address] [place] [address] 03/03/2024 8:40 AM EDT Laboratory Lab Mobile Phlebotomy [facility] [address] [place] [address] [facility], [facility] Mobile Home Draw [address] [place] [address] 03/13/2024 2:00 PM EDT Office Visit Dermatology George Blankenship [place] 200 [facility] [address] Francisco Watson MD 200 [place] [address] 03/17/2024 8:40 AM EDT Laboratory Lab Mobile Phlebotomy [facility] [address] [place] [address] [facility] Mobile Home Draw [address] [place] [address] 03/24/2024 2:30 PM EDT Office Visit Hematology/Oncolo gy [facility] 200 [place] [address] Ayaak Tatum CRNP [address] [place] [address] 03/30/2024 12:00 PM EDT Office Visit Family Practice [facility] 132 [place] [address] Kristen Vences DO [address] [facility] [place] [address] 03/31/2024 8:40 AM EDT Laboratory Lab Mobile Phlebotomy [facility] [address] [place] [address] [facility], [facility] Mobile Home Draw [address] [place] [address] 04/07/2024 10:00 AM EDT Office Visit Gastroenterology, [facility] [address] [place] [address] Lamar Tatum CRNP [address] [place] [address] 04/14/2024 8:40 AM EDT Laboratory Lab Mobile Phlebotomy [facility] [address] [place] [address] [facility] Mobile Home Draw [address] [place] [address] 04/28/2024 8:40 AM EDT Laboratory Lab Mobile Phlebotomy [facility] [address] [place] [address] [facility] Mobile Home Draw [address] [place] [address] 05/12/2024 8:40 AM EDT Laboratory Lab Mobile Phlebotomy [facility] [address] [place] [address] [facility] Mobile Home Draw [address] [place] [address] 05/26/2024 8:40 AM EDT Laboratory Lab Mobile Phlebotomy [facility] [address] [place] [address] [facility], [facility] Mobile Home Draw [address] [place] [address] 06/09/2024 8:40 AM EDT Laboratory Lab Mobile Phlebotomy [facility] [address] [place] [address] [facility], [facility] Mobile Home Draw [address] [place] [address] 06/23/2024 8:40 AM EDT Laboratory Lab Mobile Phlebotomy [facility] [address] [place] [address] [facility], [facility] Mobile Home Draw [address] [place] [address] 07/07/2024 8:40 AM EDT Laboratory Lab Mobile Phlebotomy [facility] [address] [place] [address] [facility], [facility] Mobile Home Draw [address] [place] [address] 07/21/2024 8:40 AM EDT Laboratory Lab Mobile Phlebotomy [facility] [address] [place] [address] [facility], [facility] Mobile Home Draw [address] [place] [address] 08/04/2024 8:40 AM EDT Laboratory Lab Mobile Phlebotomy [facility] [address] [place] [address] [facility] Mobile Home Draw [address] [place] [address] 08/18/2024 8:40 AM EDT Laboratory Lab Mobile Phlebotomy [facility] [address] [place] [address] [facility], [facility] Mobile Home Draw [address] [place] [address] 08/20/2024 10:15 AM EDT Office Visit Ophthalmology, [address] [address] Cody Gonzalez, DO [address] [place] [address] 09/01/2024 8:40 AM EDT Laboratory Lab Mobile Phlebotomy [facility] [address] [place] [address] [facility] Mobile Home Draw [address] [place] [address] 09/15/2024 8:40 AM EDT Laboratory Lab Mobile Phlebotomy [facility] [address] [place] [address] [facility] Mobile Home Draw [address] [place] [address] Scheduled Procedures Name Priority Associated Diagnoses Date/Ti [...] Additional history exists CKD PHOS USE SMARTSET 50375 01/28/202401/03, 07/26/2022, 12/05/2021, Additional history exists Diabetic Foot Exam 03/06/2024 03/06/2023, 0 01/03/2022, 03/02/2021, Additional history exists HbA1c 05/28/2024 11/27/2023, 05/03, 01/28/2023, Additional history exists GFR 06/22/2024 12/23/2023, 11/01, 08/30/2023, Additional history exists Albumin/Creatinine Ratio 07/12/2024 023, 10/01/2022, 09/11/2021, Additional history exists COLONOSCOPY-ANNUAL AGES 18-100 08/09/2024 08/09/2023, 11/07/2022, 11/07/2022, Additional history exists CKD HGB USE SMARTSET 75399 12/26/202412/26, 12/26/2023, 12/23/2023, Additional history exists Lipid Panel 01/28/2028 01/28/2023, [...] this encounter Medical Devices Implanted Type Area Deblocker Device Identifier Shelf Expiration Date Model / Serial / Lot Clareon Iol Aspheric Hydrophobic Acrylic Iol Implanted:Qty: 1 on 04/23/2023 by Cody Gonzalez DO at [facility] Lens Left: Eye 11/12/2025 CNA0T0 / [id number] / Viatorr Tips Endoprosthesis 8-10 Mm X 8cm / 2cm Implanted:Qty: 1 on 10/07/2020 by Go Alvarado MD at [facility] Right: Abdomen 03/03/2023 [id number] / / [id number] Description:Viatorr TIPS End oprosthesis 8-10 mm x 8cm / 2cm, Manufactored by [employer] Syr Pf 2ml Embospheres 100-300 - [id number] Implanted:Qty: 1 on 04/18/2021 by Kevin Lim DO at [facility] Left: Abdomen [employer] [id number] 11/25/2023 S220GH / / [id number] -[id number] Syr Pf 2ml Embospheres 100-300 - [id number] Implanted:Qty: 1 on 03/28/2022 at [facility] [employer] [id number] 08/31/2024 S220GH / / [id number] -5 Clareon Iol Aspheric Hydrophobic Acrylic Iol Implanted:Qty: 1 on 04/02/2023 by Cody Gonzalez DO at [facility] Right: Eye JAZMIN 11/12/2025 CNA0T0 / [id number] / documented as of this encounter Advance Directives Documents on File Type Date Recorded Patient Patient Transportation Driver Expl anation Advance Directives and Living Will 12/11/2022 ADVANCE DIRECTIVE / LIVING WILL LIVING WILL Power of Die Cutting Machine Operator 12/11/2022 POWER OF A TTORNEY [...] patient have Health Care Power of Die Cutting Machine Operator? No Full Code 07/22/2014 9:56 PM 07/24/2014 8:18 PM This order reflects the patients wishes and were consensually agreed upon. Question Answer Comments Discussion of Advance Directives occurred with: Patient Does the patient have a Living Will? No Does the patient have Health Care Power of Die Cutting Machine Operator? No Care Teams Deicer Inspector Pneumatic Relationship Specialty Start Date End Date Francisco Cisse MD [address] [place] [address] PCP - General Internal Medicine 09/04/21 documented as of this encounter
--- OUTSIDE RECORDS SUMMARY | 2024-01-25 17:10 | External Medical Summary | Summary of Care ---
Author Name Unknown Organization [facility] Address [address] [facility] [facility] [address] Phone [phone] Care Team Providers Care Coarse Wire Drawer Name Role Phone Francisco Cisse MD Primary Care Provider + Reason for Visit * Reason Onset Date Comments Medication Refill 01/08/2024 Encounter Details Date Type Department Care Team (Late st Contact Info) Description 01/08/2024 Refill General Internal Medicine [facility] [address] [place] [address] Francisco Cisse MD 200 [place] [address] Allergies No known active allergiesdocumented as of this encounter (statuses as of 01/08/2024) Medications Medication Sig Dispensed Refills Start Date End Date Status Tylenol 325 MG Oral Capsule (Acetaminophen) Take 650 mg by mouth every 8 hours as needed for Pain (fever). 0 Active OneTouch Verio In Vitro Strip (Glucose Blood)Indications:Ty pe 2 diabetes mellitus with hemoglobin A1c goal of less than 7.0% ([facility]) Use to test blood sugars 3 times [...] as of this encounter (statuses as of 01/08/2024) Active Problems Problem Noted Date Diagnosed Date [...] as of this encounter (statuses as of 01/08/2024) Resolved Problems Problem Noted Date Diagnosed Date [...] as of this encounter (statuses as of 01/08/2024) Immunizations Name Administration Dates Next Due COVID-19 mRNA, LNP-s, No Pre serve, 2-Dose Series ([facility]) 03/08/2021,02/15/2021 HepA Inact/HepB Recomb>=18yrs old 12/04/2019,04/2019,05/20/2019 11/19/2019 PPD 06/18/2017, 3,01/09/2012,0306/2011 Pneumococcal Conjugate Vacc, 13 Valent (Prevnar) 05/01/2017 Pneumococcal Polysaccharide PPV23 (Pneumovax) 08/28/2022,10/25/2015,07/14/2012 Season Influenza, Quad, PF, Adjuvanted, 65+ Yrs, IM (FLUAD) 10/07/2020(Deferred: Patient Refused - pt says he already had his shot last month at [facility] [place] [facility] [place] [...] encounter Miscellaneous Notes * Telephone Encounter - Ashley Bishop - 01/08/2024 5:23 PM ESTRefused Prescriptions: Disp Refills DULoxetine HCl 30 MG Oral Capsule Delayed *90 Cap*1 Sig: Take 1 Capsule by mouth in the morning.Refused By: SINAI BISHOPeason for Refusal: Duplicate Request----- documented in this encounter Plan of Treatment Upcoming Encounters Date Type Department Care Team (Latest Contact Info) Description 01/21/2024 8:40 AM EST Laboratory Lab Mobile Phlebotomy [facility] [address] [place] [address] [facility] Draw [address] [place] [address] 01/21/2024 10:15 AM EST Cardiac Studies Cardiac Studies, [facility] [address] [facility] [place] [address] 01/30/2024 12:42 PM EST Hospital Encounter [facility], Operating Room, [facility] - 4th Floor 400 [facility] [place] [address] Frank Peraza MD [address] [place] [address] [place] [address] 01/30/2024 12:42 PM EST - 01/30/2024 1:44 PM EST Surgery OR GL, Operating Room, [facility] - 4th [facility] [place] [address] Frank Peraza MD [address] [place] [address] [place] [address] CYSTOURETHROSCOPY WITH FULGURATION MEDIUM BLADDER TUMOR 02/04/2024 8:40 AM EST Laboratory Lab Mobile Phlebotomy [facility] [address] [place] [address] [facility] Draw [address] [place] [address] 02/07/2024 11:00 AM EST Telemedicine [facility] [place] [place] [address] [place] [address] Aidee Miller PA-C [address] [place] [address] Kriss Mays, [facility] [facility] [address] [place] [address] 02/14/2024 2:45 PM EDT Office Visit Urology Lynnette Fitzpatrick [address] [place] [address] [place] [address] Frank Peraza MD [address] [place] [address] [place] [address] 02/18/2024 8:40 AM EDT Laboratory Lab Mobile Phlebotomy [facility] [address] [place] [address] [facility] Draw [address] [place] [address] 03/03/2024 8:40 AM EDT Laboratory Lab Mobile Phlebotomy [facility] [address] [place] [address] [facility] Draw [address] [place] [address] 03/13/2024 2:00 PM EDT Office Visit Dermatology [facility] [address] [place] [address] Francisco Watson MD 200 [place] [address] 03/17/2024 8:40 AM EDT Laboratory Lab Mobile Phlebotomy [facility] [address] [place] [address] [facility] Draw [address] [place] [address] 03/24/2024 2:30 PM EDT Office Visit Hematology/Oncolo gy [facility] [address] [place] [address] Ayaka Tatum CRNP [address] [place] [address] 03/30/2024 12:00 PM EDT Office Visit Family Practice [facility] 132 [place] [address] Kristen Vences DO 132 [place] [address] 03/31/2024 8:40 AM EDT Laboratory Lab Mobile Phlebotomy [facility] [address] [place] [address] [facility] Draw [address] [place] [address] 04/07/2024 10:00 AM EDT Office Visit Gastroenterology, [facility] [address] [place] [address] Lamar Tatum CRNP [address] [place] [address] 04/14/2024 8:40 AM EDT Laboratory Lab Mobile Phle[facility] [address] [place] [address] [facility] Draw [address] [place] [address] 04/28/2024 8:40 AM EDT Laboratory Lab Mobile Phlebotomy [facility] [address] [place] [address] [facility] [address] [place] [address] 05/12/2024 8:40 AM EDT Laboratory Lab Mobile Phlebotomy [facility] [address] [place] [address] [facility] Draw [address] [place] [address] 05/26/2024 8:40 AM EDT Laboratory Lab Mobile Phlebotomy [facility] [address] [place] [address] [facility] [address] [place] [address] 06/09/2024 8:40 AM EDT Laboratory Lab Mobile Phlebotomy [facility] [address] [place] [address] [facility] [address] [place] [address] 06/23/2024 8:40 AM EDT Laboratory Lab Mobile Phlebotomy [facility] [address] [place] [address] [facility] [address] [place] [address] 07/07/2024 8:40 AM EDT Laboratory Lab Mobile Phlebotomy [facility] [address] [place] [address] [facility] [address] [place] [address] 07/21/2024 8:40 AM EDT Laboratory Lab Mobile Phlebotomy [facility] [address] [place] [address] [facility] [address] [place] [address] 08/04/2024 8:40 AM EDT Laboratory Lab Mobile Phlebotomy [facility] [address] [place] [address] [facility] [address] [place] [address] 08/18/2024 8:40 AM EDT Laboratory Lab Mobile Phlebotomy [facility] [address] [place] [address] [facility] Draw [address] [place] [address] 08/20/2024 10:15 AM EDT Office Visit Ophthalmology, [address] [address] Cody Gonzalez, DO [address] [place] [address] 09/01/2024 8:40 AM EDT Laboratory Lab Mobile Phlebotomy [facility] [address] [place] [address] [facility] Draw [address] [place] [address] 09/15/2024 8:40 AM EDT Laboratory Lab Mobile Phlebotomy [facility] [address] [place] [address] [facility] [address] [place] [address] Scheduled Procedures Name Priority Associated Diagnoses Date/Ti [...] Additional history exists CKD PHOS USE SMARTSET 63165 01/28/202401/03, 07/26/2022, 12/05/2021, Additional history exists Diabetic Foot Exam 03/06/2024 03/06/2023, 0 01/03/2022, 03/02/2021, Additional history exists HbA1c 05/28/2024 11/27/2023, 05/03, 01/28/2023, Additional history exists GFR 06/22/2024 12/23/2023, 11/01, 08/30/2023, Additional history exists Albumin/Creatinine Ratio 07/12/2024 023, 10/01/2022, 09/11/2021, Additional history exists COLONOSCOPY-ANNUAL AGES 18-100 08/09/2024 08/09/2023, 11/07/2022, 11/07/2022, Additional history exists CKD HGB USE SMARTSET 32672 01/07/202501/07, 01/07/2024, 12/26/2023, Additional history exists Lipid [...] this encounter Medical Devices Implanted Type Area Lens Assistant Device Identifier Shelf Expiration Date Model / Serial / Lot Clareon Iol Aspheric Hydrophobic Acrylic Iol Implanted:Qty: 1 on 04/23/2023 by Cody Gonzalez DO at [facility] Lens Left: Eye 11/12/2025 [id number] / [id number] / Viatorr Tips Endoprosthesis 8-10 Mm X 8cm / 2cm Implanted:Qty: 1 on 10/07/2020 by Go Alvarado MD at [facility] Right: Abdomen 03/03/2023 [id number] / / [id number] Description:Viatorr TIPS End oprosthesis 8-10 mm x 8cm / 2cm, Manufactored by [employer] Syr Pf 2ml Embospheres 100-300 - [id number] Implanted:Qty: 1 on 04/18/2021 by Kevin Lim DO at [facility] Left: Abdomen [employer] [id number] 11/25/2023 [id number] / / [id number] Syr Pf 2ml Embospheres 100-300 - [id number] Implanted:Qty: 1 on 03/28/2022 at [facility] [id number] 08/31/2024 S220GH / / [id number] Clareon Iol Aspheric Hydrophobic Acrylic Iol Implanted:Qty: 1 on 04/02/2023 by Cody Gonzalez DO at [facility] Right: Eye JAZMIN 11/12/2025 CNA0T0 / [id number] / documented as of this encounter Advance Directives Documents on File Type Date Recorded 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 No Full Code 07/22/2014 9:56 PM 07/24/2014 8:18 PM This order reflects the patients wishes and were consensually agreed upon. Question Answer Comments Discussion of Advance Directives occurred with: Patient Does the patient have a Living Will? No Does the patient have Health Care Power of Ecotherapist? No Care Teams Coarse Wire Drawer Relationship Specialty Start Date End Date Francisco Cisse MD [address] [place] [facility], [place] [address] PCP - General Internal Medicine 09/04/21 documented as of this encounter
--- OUTSIDE RECORDS SUMMARY | 2024-01-25 17:10 | External Medical Summary | Summary of Care ---
Author Name Unknown Organization [facility] Address [address] [facility] [address] Phone [phone] Care Team Providers Care Dean Name Role Phone Francisco Cisse MD Primary Care Provider + Reason for Visit * Reason Onset Date Comments Advice 01/06/2024 Encounter Details Date Type Department Care Team (Late st Contact Info) Description 01/06/2024 Telephone General Internal Medicine [facility] [address] [place] [address] Francisco Cisse MD [address] [place] [address] Advice Allergies No known active allergiesdocumented as of [...] A1c goal of less than 7.0% ([facility]) Use to test blood sugars [...] mRNA, LNP-s, No Pre serve, 2-Dose Series ([employer]) 03/08/2021,02/15/2021 HepA Inact/HepB Recomb>=18yrs old 12/04/2019,04/2019,05/20/2019 11/19/2019 PPD 06/18/2017, 3,01/09/2012,06/2011 Pneumococcal Conjugate Vacc, 13 Valent (Prevnar) 05/01/2017 Pneumococcal Polysaccharide PPV23 (Pneumovax) 08/28/2022,10/25/2015,07/14/2012 Season Influenza, Quad, PF, Adjuvanted, 65+ Yrs, IM (FLUAD) 10/07/2020(Deferred: Patient Refused - pt says he already had his shot last month at [facility] [place] [facility] [place] [...] Telephone Encounter - Ximena Pretty RN - 01/08/2024 8:57 AM EST Referral placed for RIYA Cardenas PA-C * Telephone Encounter - Francisco Cisse MD - 01/07/2024 3:30 PM EST He should still be seen, suggest ov for ongoing symptoms, go to ER if severe * Telephone Encounter - Ximena Pretty RN - 01/07/2024 11:03 AM EST Discussed with patient. Explained that he should go to the ER to be evaluated. Patient states that when he is at the doctors office or the hospital it doesn't happen. He denies chest pain at this current time. Procedure at [facility] with Dr Peraza to do a biopsy of the bladder. Patient states that he has had this chest pain/ discomfort before. He states that it is not new. Hestates that the last time that it happened he was anemic. Mobile lab is coming to draw labs today. * Telephone Encounter - Francisco Cisse MD - 01/07/2024 9:10 AM EST If he is having active chest pain, should go to ER * Telephone Encounter - Sue De La Rosa LPN - 01/06/2024 4:19 PM EST HH Concerns Cristina, nurse, Calling from: [facility] Report/Concerns of: Chest Pain Symptoms: none Narrative: Cristina stated that she spoke with patient via phone and he stated that he was having a chest pain episode last night. He has had 3-4 episodes since he was discharged from the hospital. Last nights episode lasted for about 30 minutes, no increased SOB, No Headache, No Dizziness. The episodes only happen at night time. He told her that the chest pain pulses with his heart beat. (Heart beat, heart beat, pain, heart beat, heart beat, pain....etc.). She just spoke to him on the phone and he does not currently have any chest pains today. He does have an EKG scheduled on 01/21/2024. She is not sure if that can get moved up to a further date? He does have to call for transportation, so this would need to be coordinated with him. Cristina will be going back out to visit him in person on Saturday01/08/2024. Please advise Call back patient with any advice documented in this encounter Plan of Treatment Upcoming Encounters Date Type Department Care Team (Latest Contact Info) Description 01/08/2024 1:00 PM EST Telemedicine [facility] [place], [place] [address] [place] [address] Aidee Miller PA-C [address] [place] [address] Kriss [place], [facility] [employer] [facility] [address] [place] [address] 01/21/2024 8:40 AM EST Laboratory Lab Mobile Phlebotomy [facility] [address] [place] [address] [facility] Mobile Home Draw [address] [place] [address] 01/21/2024 10:15 AM EST Cardiac Studies Cardiac Studies, [place] [address] [address] [place] [address] 01/30/2024 12:42 PM EST Hospital Encounter OR GL, Operating Room, [facility] - 4th Floor [address] [place] [address] Frank Peraza MD [address] [place] [address] [place] [address] 01/30/2024 12:42 PM EST - 01/30/2024 1:44 PM EST Surgery OR [facility], Operating Room, [facility] - 4th Floor [address] [place] [address] Frank Peraza MD [address] [place] [address] [place] [address] CYSTOURETHROSCOPY WITH FULGURATION MEDIUM BLADDER TUMOR 02/04/2024 8:40 AM EST Laboratory Lab Mobile Phlebotomy [facility] [address] [place] [address] [facility] Mobile Home Draw [address] [place] [address] 02/14/2024 2:45 PM EDT Office Visit Urology KarlaLynnette German [address] [place] [address] [place] [address] Frank Peraza MD [address] [place] [address] [place] [address] 02/18/2024 8:40 AM EDT Laboratory Lab Mobile Phlebotomy [facility] [address] [place] [address] [facility] Mobile Home Draw [address] [place] [address] 03/03/2024 8:40 AM EDT Laboratory Lab Mobile Phlebotomy [facility] [address] [place] [address] [facility] Mobile Home Draw [address] [place] [address] 03/13/2024 2:00 PM EDT Office Visit Dermatology [facility] [address] [place] [address] Francisco Watson MD [address] [place] [address] 03/17/2024 8:40 AM EDT Laboratory Lab Mobile Phlebotomy [facility] [address] [place] [address] [facility] Mobile Home Draw [address] [place] [address] 03/24/2024 2:30 PM EDT Office Visit Hematology/Oncolo gy [facility] [address] [place] [address] Ayaka Tatum CRNP [address] [place] [address] 03/30/2024 12:00 PM EDT Office Visit Family Practice [facility] 132 [facility] [place] [address] Kristen Vences DO 132 [facility] [place] [address] 03/31/2024 8:40 AM EDT Laboratory Lab Mobile Phlebotomy [facility] [address] [place] [address] [facility] Mobile Home Draw [address] [place] [address] 04/07/2024 10:00 AM EDT Office Visit Gastroenterology, [facility] [address] [place] [address] Lamar Tatum CRNP [address] [facility] [place] [address] 04/14/2024 8:40 AM EDT Laboratory Lab Mobile Phlebotomy [facility] [address] [place] [address] [facility] Draw [address] [place] [address] 04/28/2024 8:40 AM EDT Laboratory Lab Mobile Phlebotomy [facility] [address] [place] [address] [facility] Draw [address] [place] [address] 05/12/2024 8:40 AM EDT Laboratory Lab Mobile Phlebotomy [facility] [address] [place] [address] [facility] Draw [address] [place] [address] 05/26/2024 8:40 AM EDT Laboratory Lab Mobile Phlebot[facility] [address] [place] [address] [facility] Draw [address] [place] [address] 06/09/2024 8:40 AM EDT Laboratory Lab Mobile Phlebotomy [facility] [address] [place] [address] [facility] Draw [address] [place] [address] 06/23/2024 8:40 AM EDT Laboratory Lab Mobile Phlebotomy [facility] [address] [place] [address] [facility] [address] [place] [address] 07/07/2024 8:40 AM EDT Laboratory Lab Mobile Phlebotomy [facility] [address] [place] [address] [facility] [address] [place] [address] 07/21/2024 8:40 AM EDT Laboratory Lab Mobile Phlebot[facility] [address] [place] [address] [facility] [address] [place] [address] 08/04/2024 8:40 AM EDT Laboratory Lab Mobile Phlebotomy [facility] [address] [place] [address] [facility] [address] [place] [address] 08/18/2024 8:40 AM EDT Laboratory Lab Mobile Phlebotomy [facility] [address] [place] [address] [facility] Draw [address] [place] [address] 08/20/2024 10:15 AM EDT Office Visit Ophthalmology, [address] [address] Cody Gonzalez, [address] [place] [address] 09/01/2024 8:40 AM EDT Laboratory Lab Mobile Phlebotomy [facility] [address] [place] [address] [facility] Draw [address] [place] [address] 09/15/2024 8:40 AM EDT Laboratory Lab Mobile Phlebotomy [facility] [address] [place] [address] [facility] Mobile Home Draw 100 [address] [facility] [place], [place] [address] Scheduled Procedures Name Priority Associated Diagnoses Date/Ti [...] Additional history exists CKD PHOS USE SMARTSET 26378 01/28/202401/03, 07/26/2022, 12/05/2021, Additional history exists Diabetic Foot Exam 03/06/2024 03/06/2023, 0 01/03/2022, 03/02/2021, Additional history exists HbA1c 05/28/2024 11/27/2023, 05/03, 01/28/2023, Additional history exists GFR 06/22/2024 12/23/2023, 11/01, 08/30/2023, Additional history exists Albumin/Creatinine Ratio 07/12/2024 023, 10/01/2022, 09/11/2021, Additional history exists COLONOSCOPY-ANNUAL AGES 18-100 08/09/2024 08/09/2023, 11/07/2022, 11/07/2022, Additional history exists CKD HGB USE SMARTSET 34192 01/07/202501/07, 01/07/2024, 12/26/2023, Additional history exists Lipid [...] this encounter Medical Devices Implanted Type Area Whiskey Filterer Device Identifier Shelf Expiration Date Model / Serial / Lot Clareon Iol Aspheric Hydrophobic Acrylic Iol Implanted:Qty: 1 on 04/23/2023 by Cody Gonzalez DO at OR [facility] Lens Left: Eye 11/12/2025 CNA0T0 / [id number] / Viatorr Tips Endoprosthesis 8-10 Mm X 8cm / 2cm Implanted:Qty: 1 on 10/07/2020 by Go Alvarado MD at [facility] Right: Abdomen 03/03/2023 [id number] / / [id number] Description:Viatorr TIPS End oprosthesis 8-10 mm x 8cm / 2cm, Manufactored by [employer] Syr Pf 2ml Embospheres 100-300 - [id number] Implanted:Qty: 1 on 04/18/2021 by Kevin Lim DO at OR [facility] Left: Abdomen [employer] [id number] 11/25/2023 S220GH / / [id number] Syr Pf 2ml Embospheres 100-300 - [id number] Implanted:Qty: 1 on 03/28/2022 at [facility] [employer] [id number] 08/31/2024 S220GH / / [id number] Clareon Iol Aspheric Hydrophobic Acrylic Iol Implanted:Qty: 1 on 04/02/2023 by Cody Gonzalez DO at [facility] Right: Eye JAZMIN 11/12/2025 CNA0T0 / [id number] / documented as of this encounter Advance Directives Documents on File Type Date Recorded Patient Children'[facility] Court Magistrate Expl anation Advance Directives and Living Will 12/11/2022 ADVANCE DIRECTIVE / LIVING WILL LIVING WILL Power of Traveling Representative 12/11/2022 POWER OF A TTORNEY Latest Code [...] the patient have Health Care Power of Traveling Representative? No Full Code 07/22/2014 9:56 PM 07/24/2014 8:18 PM This order reflects the patients wishes and were consensually agreed upon. Question Answer Comments Discussion of Advance Directives occurred with: Patient Does the patient have a Living Will? No Does the patient have Health Care Power of Traveling Representative? No Care Teams Dean Relationship Specialty Start Date End Date Francisco Cisse MD 200 [facility] [place] [address] PCP - General Internal Medicine 09/04/21 documented as of this encounter
--- OUTSIDE RECORDS SUMMARY | 2024-01-25 17:10 | External Medical Summary | Summary of Care ---
Author Name Unknown Organization [facility] Address [address] [address] Phone [phone] Care Team Providers Care Inventory Control Manager Name Role Phone Francisco Cisse MD Primary Care Provider + Reason for Visit * Reason Onset Date Comments Advice 01/06/2024 Encounter Details Date Type Department Care Team (Late st Contact Info) Description 01/06/2024 Telephone General Internal Medicine [facility] [address] [facility] [place] [address] Francisco Cisse MD [address] [place] [address] Advice Allergies No known active allergiesdocumented as [...] A1c goal of less than 7.0% ([facility]) Use to test blood sugars 3 [...] mRNA, LNP-s, No Pre serve, 2-Dose Series (BeatSwitch) 03/08/2021,02/15/2021 HepA Inact/HepB Recomb>=18yrs old 12/04/2019,04/2019,05/20/2019 11/19/2019 PPD 06/18/2017, 3,01/09/2012,06/2011 Pneumococcal Conjugate Vacc, 13 Valent (Prevnar) 05/01/2017 Pneumococcal Polysaccharide PPV23 (Pneumovax) 08/28/2022,10/25/2015,07/14/2012 Season Influenza, Quad, PF, Adjuvanted, 65+ Yrs, IM (FLUAD) 10/07/2020(Deferred: Patient Refused - pt says he already had his shot last [facility] at [facility] and [place] [...] pain at this current time. Procedure at [facility] with Dr Peraza to do a [...] Info) Description 01/08/2024 1:00 PM EST Telemedicine [facility] [place], [place] [address] [place] [address] Aidee Miller PA-C [address] [place] [address] Kriss Mays, Community Health Robotics Technologist [address] [place] [address] 01/21/2024 8:40 AM EST Laboratory Lab Mobile Phlebotomy [facility] [address] [place] [address] [facility], [facility] Mobile Home Draw [address] [place] [address] 01/21/2024 10:15 AM EST Cardiac Studies Cardiac Studies, [facility] [address] [address] 01/30/2024 12:42 PM EST Hospital Encounter [facility], Operating Room, [facility] - 4th Floor [address] [place] [address] Frank Peraza MD [address] [place] [address] [place] [address] 01/30/2024 12:42 PM EST - 01/30/2024 1:44 PM EST Surgery OR [facility], Operating Room, [facility] - 4th Floor [address] [place] [address] Frank Peraza MD [address] [place] [address] CYSTOURETHROSCOPY WITH FULGURATION MEDIUM BLADDER TUMOR 02/04/2024 8:40 AM EST Laboratory Lab Mobile Phlebotomy [facility] [place] [facility] [address] [place] [address] [facility], l Mobile Home Draw [address] [place] [address] 02/14/2024 2:45 PM EDT Office Visit Urology Lynnette Fitzpatrick [address] [place] [address] Frank Peraza MD [address] [place] [address] [place] [address] 02/18/2024 8:40 AM EDT Laboratory Lab Mobile Phlebotomy [facility] [place] [address] [place] [facility] [place] [address] [facility], [facility] Mobile Home Draw [address] [place] [address] 03/03/2024 8:40 AM EDT Laboratory Lab Mobile Phlebotomy [facility] [place] [facility] [address] [place] [address] [facility], [facility] Mobile Home Draw [address] [place] [address] 03/13/2024 2:00 PM EDT Office Visit Dermatology [facility] [address] [place] [address] Francisco Watson MD [address] [place] [address] 03/17/2024 8:40 AM EDT Laboratory Lab Mobile Phlebotomy [facility] [place] [address] [place] [address] [facility], [facility] Mobile Home Draw [address] [place] [address] 03/24/2024 2:30 PM EDT Office Visit Hematology/Oncolo gy [facility] [address] [place], [place] [address] Ayaka Tatum CRNP [address] [place] [address] 03/30/2024 12:00 PM EDT Office Visit Family Practice [facility] [address] [place] [address] Kristen Vences DO [address] [place] [address] 03/31/2024 8:40 AM EDT Laboratory Lab Mobile Phlebotomy [facility] [place] [address] [place] [address] [facility], [facility] Mobile Home Draw [address] [place] [address] 04/07/2024 10:00 AM EDT Office Visit Gastroenterology, [facility] [address] [place] [address] Lamar Tatum CRNP [address] [place] [address] 04/14/2024 8:40 AM EDT Laboratory Lab Mobile Phlebotomy [facility] [address] [place] [address] [facility], [facility] Mobile Home Draw [address] [place] [address] 04/28/2024 8:40 AM EDT Laboratory Lab Mobile Phlebotomy [facility] [address] [place] [address] [facility] Mobile Home Draw [address] [place] [address] 05/12/2024 8:40 AM EDT Laboratory Lab Mobile Phlebotomy [facility] [address] [place] [address] [facility], [facility] Mobile Home Draw [address] [place] [address] 05/26/2024 8:40 AM EDT Laboratory Lab Mobile Phlebotomy [facility] [address] [place] [address] [facility] Mobile Home Draw [address] [place] [address] 06/09/2024 8:40 AM EDT Laboratory Lab Mobile Phlebotomy [facility] [address] [place] [address] [facility] Mobile Home Draw [address] [place] [address] 06/23/2024 8:40 AM EDT Laboratory Lab Mobile Phlebotomy [facility] [address] [place] [address] [facility], [facility] Mobile Home Draw [address] [place] [address] 07/07/2024 8:40 AM EDT Laboratory Lab Mobile Phlebotomy [facility] [address] [place] [address] [facility] Mobile Home Draw [address] [place] [address] 07/21/2024 8:40 AM EDT Laboratory Lab Mobile Phlebotomy [facility] [address] [place] [address] [facility], [facility] Mobile Home Draw [address] [place] [address] 08/04/2024 8:40 AM EDT Laboratory Lab Mobile Phlebotomy [facility] [place] [address] [place] [address] [facility], [facility] Mobile Home Draw [address] [place] [address] 08/18/2024 8:40 AM EDT Laboratory Lab Mobile Phlebotomy [facility] [address] [place] [address] [facility], [facility] Mobile Home Draw [address] [place] [address] 08/20/2024 10:15 AM EDT Office Visit Ophthalmology, [address] [address] Cody Gonzalez DO [address] [place] [address] 09/01/2024 8:40 AM EDT Laboratory Lab Mobile Phlebotomy [facility] [address] [place] [address] [facility], [facility] Mobile Home Draw [address] [place] [address] 09/15/2024 8:40 AM EDT Laboratory Lab Mobile Phlebotomy [facility] [address], [place] [address] [facility], [facility] Mobile Home Draw [address] [place] [address] Scheduled Procedures Name Priority Associated Diagnoses Date/Ti [...] Additional history exists CKD PHOS USE SMARTSET 65043 01/28/202401/03, 07/26/2022, 12/05/2021, Additional history exists Diabetic Foot Exam 03/06/2024 03/06/2023, 0 01/03/2022, 03/02/2021, Additional history exists HbA1c 05/28/2024 11/27/2023, 05/03, 01/28/2023, Additional history exists GFR 06/22/2024 12/23/2023, 11/01, 08/30/2023, Additional history exists Albumin/Creatinine Ratio 07/12/2024 023, 10/01/2022, 09/11/2021, Additional history exists COLONOSCOPY-ANNUAL AGES 18-100 08/09/2024 08/09/2023, 11/07/2022, 11/07/2022, Additional history exists CKD HGB USE SMARTSET 52612 12/26/202412/26, 12/26/2023, 12/23/2023, Additional history exists Lipid [...] this encounter Medical Devices Implanted Type Area Chief Lending Officer Device Identifier Shelf Expiration Date Model / Serial / Lot Clareon Iol Aspheric Hydrophobic Acrylic Iol Implanted:Qty: 1 on 04/23/2023 by Cody Gonzalez DO at OR [facility] Lens Left: Eye 11/12/2025 [id number] / [id number] / Viatorr Tips Endoprosthesis 8-10 Mm X 8cm / 2cm Implanted:Qty: 1 on 10/07/2020 by Go Alvarado MD at [facility] Right: Abdomen 03/03/2023 [id number] / / [id number] Description:Viatorr TIPS End oprosthesis 8-10 mm x 8cm / 2cm, Manufactored by [employer] Syr Pf 2ml Embospheres 100-300 - [id number] Implanted:Qty: 1 on 04/18/2021 by Kevin Lim DO at OR [facility] Left: Abdomen [employer] [id number] 11/25/2023 [id number] / / [id number] Syr Pf 2ml Embospheres 100-300 - [id number] Implanted:Qty: 1 on 03/28/2022 at [facility] [employer] [id number] 08/31/2024 S220GH / / [id number] -[id number] Clareon Iol Aspheric Hydrophobic Acrylic Iol Implanted:Qty: 1 on 04/02/2023 by Cody Gonzalez DO at OR [facility] Right: Eye JAZMIN 11/12/2025 [id number] / [id number] / documented as of this encounter Advance Directives Documents on File Type Date Recorded Patient Rectification Printer Expl anation Advance Directives and Living Will 12/11/2022 ADVANCE DIRECTIVE / LIVING WILL LIVING WILL Power of Pleater Hand 12/11/2022 POWER OF A TTORNEY Latest Code [...] the patient have Health Care Power of Pleater Hand? No Full Code 07/22/2014 9:56 PM 07/24/2014 8:18 PM This order reflects the patients wishes and were consensually agreed upon. Question Answer Comments Discussion of Advance Directives occurred with: Patient Does the patient have a Living Will? No Does the patient have Health Care Power of Pleater Hand? No Care Teams Inventory Control Manager Relationship Specialty Start Date End Date Francisco Cisse MD [address] [place] [address] PCP - General Internal Medicine 09/04/21 documented as of this encounter
--- OUTSIDE RECORDS SUMMARY | 2024-01-25 17:10 | External Medical Summary | Summary of Care ---
Author Name Unknown Organization [facility] Address [address] [place] [address] Phone [phone] Care Team Providers Care Vendor Manager Name Role Phone Francisco Cisse MD Primary Care Provider + Reason for Visit * Reason Comments [facility]: Telehealth Encounter Details Date Type Department Care Team (Late st Contact Info) Description 01/08/2024 1:00 PM EST Telemedicine [facility], [address] [address] [place] [address] Aidee Miller PA-C [address] [place] [address] Kriss Mays, Community Health Scanning Clerk [address], [place] [id number] Type 2 diabetes mellitus with stage 3a chronic kidney disease, with long-term current use of insulin (HCC)*; Liver cell carcinoma (HCC); Prostate cancer (HCC); Chronic anemia Allergies No known active allergiesdocumented as [...] mRNA, LNP-s, No Pre serve, 2-Dose Series (Academize) 03/08/2021,02/15/2021 HepA Inact/HepB Recomb>=18yrs old 12/04/2019,04/2019,05/20/2019 11/19/2019 PPD 06/18/2017, 3,01/09/2012,0306/2011 Pneumococcal Conjugate Vacc, 13 Valent (Prevnar) 05/01/2017 Pneumococcal Polysaccharide PPV23 (Pneumovax) 08/28/2022,10/25/2015,07/14/2012 Season Influenza, Quad, PF, Adjuvanted, 65+ Yrs, IM (FLUAD) 10/07/2020(Deferred: Patient Refused - pt says he already had his shot last [facility] at [facility] made aware) Seasonal Influenza [...] Sign Reading Time Taken Comments Blood Pressure 160/50 01/08/2024 1:11 PM EST Pulse 71 01/08/2024 1:11 PM EST Temperature 36.7 C (98.1 F) 01/08/2024 1:11 PM ES T Respiratory Rate - - Oxygen Saturation 99% 01/08/2024 1:11 PM EST Inhaled Oxygen Concentration - - Weight - - Height - - Body Mass Index - - documented in this encounter Functional Status Functional [...] as of this encounter Progress Notes * Aidee Miller PA-C - 01/08/2024 1:19 PM EST [facility] Provider Telemedicine Visit Date: 01/08/2024 Time: 1:19 PM Assessment/Plan: 1. Type 2 diabetes mellitus with stage 3a chronic kidney disease, with long-term current use of insulin (HCC) Stable Last A1c 5.3 in 05/2023 2. Liver cell carcinoma (HCC) Currently on transplant list Following with hem/onc 3. Prostate cancer (HCC) S/p radiation treatment Following with hem/onc 4. Chronic anemia Following with hem/onc They order CBC every 2 weeks, recommend transfusion when hemoglobin 7 or less Follow up plan: Will follow up in one month. Advised to reach out with any acute concerns. Patient admitted to having long standing CP for years. He had it a couple days ago and it subsided. He had astress test in 04/2023 and ECHO in . Advised to reach out if S/S change or persist. A total of 40 minutes was spent face to face via video-based telemedicine. Subjective Patient location: HOME. I was not in a hospital or clinic location. After connecting through Everywunideo, patient was verified with two unique identifiers. Patient (or authorized legal risk control representative) was then informed that this was a Telemedicine visit and being conducted confidentially over secure lines. Methods to assure confidentiality were taken. Patient acknowledged consent and understanding of privacy and security of the Telemedicine visit. The patient agreed to participate. Reason for Visit: Initial Visit Current Concerns: Luis Hale is a 73 year old male seen today for a [facility] Telemedicine Provider Visit. Date of last known acute care visit: 12/15/23 with PCP Reason for last known acute care visit: Patient was admitted from 12/12/23-12/15/23 for blood in the stool and the urine. His hemoglobin was 7.5 and he received blood transfusions in the hospital. He had a cystoscopy performed (Dr. 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 He has an upcoming cystourethroscopy scheduled for biopsies. He has a history of hepatocellular carcinoma and is on the transplant list. He follows with hem/onc for anemia. Last A1c 5.3 in 05/2023 Today's concerns are: Patient states he is doing ok at home. He had complaints of CP a couple days ago. He states he has had this intermittent CP for quite sometime and has been evaluated for it in the past. He feels a pain when the heart beats. No palpitations or heart racing/pounding. It has since subsided and hasn't r eturned. No cough, URI symptoms or LE edema. He is not having blood in the urine or the bowels. He feels bowel and urinary habits are at baseline. BG usually runs around 150 fasting. He is currently taking Lantus at bedtime only. Appetite is good. He feels his weight is steady. ROS: See HPI Objective Physical Exam: BP 160/50 (BP Site: Right Arm, BP Position: Sitting, BP Cuff Size: Regular) | Pulse 71 | Temp 36.7 C (98.1 F) (Infrared ) | SpO2 99% Previous Wts: Wt Readings from Last 5 Encounters: 12/30/23 83.9 kg (185 lb) 12/26/23 83.5 kg (184 lb) 12/24/23 83.2 kg (183 lb 6.4 oz) 12/06/23 82.9 kg (182 lb 11.2 oz) 11/18/23 81.6 kg (179 lb 14.4 oz) Previous BPs: BP Readings from Last 5 Encounters: 01/08/24 160/50 12/30/23 150/70 12/26/23 124/58 12/24/23 142/57 12/06/23 126/52 Physical Exam Constitutional: General: He is not in acute distress. HENT: Head: Normocephalic and atraumatic. Nose: Nose normal. Mouth/Throat: Pharynx: Oropharynx is clear. Eyes: Extraocular Movements: Extraocular movements intact. Conjunctiva/sclera: Conjunctivae normal. Cardiovascular: Rate and Rhythm: Normal rate and regular rhythm. Heart sounds: Murmur heard. Pulmonary: Effort: Pulmonary effort is normal. No respiratory distress. Breath sounds: Normal breath sounds. Musculoskeletal: General: No swelling. Neurological: General: No focal deficit present. Mental Status: He is alert and oriented to person, place, and time. Medication Review: Current Outpatient Medications Medication Sig Dispense Refill [...] 5 Probiotic (Lactobacillus) Oral Capsule 1 Capsule. Furosemide 20 MG Oral Tablet (Lasix) Take 2 Tablets by mouth in the morning. 180 Tablet 3 oxygen IN GAS Use 2 L/min(Oxygen) as directed at bedtime. Albumin Human 25 % Intravenous Solution 25Gm before and after paracentesis (Patient not taking: Reported on 12/06/2023) 100 mL 0 Metoclopramide HCl 5 MG [...] mouth in the morning. 90 Tablet 1 Zoster Vac Recomb Adjuvanted 50 MCG/0.5ML Intramuscular [...] 1 Tablet before bedtime. 180 Tablet 5 DULoxetine HCl 30 MG Oral Capsule Delayed Release Particles (Cymbalta) Take 1 Capsule by mouth in the morning. 90 Capsule 1 Current Facility-Administered Medications Medication Dose Route Frequency Provider Last Rate Last Admin Albuterol Sulfate (Proventil) (2.5 MG/3ML) 0.083% inhalation solution 2.5 mg 2.5 mg Nebulizer PRN JenningsWilliam PA-C Albuterol Sulfate (Proventil) (5 MG/ML) 0.5% *conc* inhalation solution 2.5 mg 2.5 mg Nebulizer PRNHsuWilliam PA-C 2.5 mg at 03/20/23 0913 Mobility Evaluation: MACH10 Assessment: Assistive Devices Used in the Home: NONE Recent Falls: Falls in the last 6 months: No SDoH: Routine Transportation Urgent Transportation Social Isolation Aidee Lopez PA-C 1:19 PM *Communication sent to PCP (via autofax if non-ising), Population Health Care Team members, relevant Specialty Care Physicians* * Kriss Mays, Community Health Scanning Clerk - 01/08/2024 1:18 PM EST Telemedicine visit: Yes Patient location: HOME. I was not in a hospital or clinic location. After connecting through televideo, patient was verified with two unique identifiers. Patient (or authorized legal risk control representative)was then informed that this was a Telemedicine visit and being conducted confidentially over securelines. Methods to assure confidentiality were taken. Patient acknowledged consent and understandingof privacy and security of the Telemedicine visit. The patient agreed to participate. Community Health Scanning Clerk ([facility]) documentation: [facility] facilitated telehealth visit with Isamar Mays- [facility] Support Services/[facility] [employer] Plan [email or web address] documented in this encounter Plan of Treatment Upcoming Encounters Date Type Department Care Team (Latest Contact Info) Description 01/21/2024 8:40 AM EST Laboratory Lab Mobile Phlebot[facility] [address] [place] [address] [facility] Draw [address] [place] [address] 01/21/2024 10:15 AM EST Cardiac Studies Cardiac Studies, [facility] [address] [facility] [place] [address] 01/30/2024 12:42 PM EST Hospital Encounter OR [facility], Operating Room, [facility] - 4th Floor [address] [facility] [place] [id number] Frank Peraza MD [address] [facility] [address] [place] [id number] 01/30/2024 12:42 PM EST - 01/30/2024 1:44 PM EST Surgery OR [facility], Operating Room, [facility] - 4th Floor [address] [place] [address] Frank Peraza MD [address] [place] [address] [place] [address] CYSTOURETHROSCOPY WITH FULGURATION MEDIUM BLADDER TUMOR 02/04/2024 8:40 AM EST Laboratory Lab Mobile Phlebotomy [facility] [address] [place] [address] [facility] Draw [address] [place] [address] 02/07/2024 11:00 AM EST Telemedicine [facility], [address] [place] [address] Aidee Miller PA-C [address] [place] [address] Kriss Mays, Community Health Scanning Clerk [address] [place] [address] 02/14/2024 2:45 PM EDT Office Visit Urology Lynnette Fitzpatrick [address] [place] [address] [place] [address] Frank Peraza MD [address] [place] [address] [place] [address] 02/18/2024 8:40 AM EDT Laboratory Lab Mobile Phlebotomy [facility] [address] [place] [address] [facility] Draw [address] [place] [address] 03/03/2024 8:40 AM EDT Laboratory Lab Mobile Phlebotomy [facility] [address] [place] [address] [facility] Draw [address] [place] [address] 03/13/2024 2:00 PM EDT Office Visit Dermatology [facility] [address] [place] [address] Francisco Watson MD [address] [place] [address] 03/17/2024 8:40 AM EDT Laboratory Lab Mobile Phlebotomy [facility] [address] [place] [address] [facility] Home Draw [address] [place] [address] 03/24/2024 2:30 PM EDT Office Visit Hematology/Oncolo gy [facility] [address] [place] [address] Ayaka Tatum CRNP [address] [place] [address] 03/30/2024 12:00 PM EDT Office Visit Family Practice [facility] [address] [place] [address] Kristen Vences DO 132 [facility] [place] [address] 03/31/2024 8:40 AM EDT Laboratory Lab Mobile Phlebotomy [facility] [address] [place] [address] [facility] Home Draw [address] [place] [address] 04/07/2024 10:00 AM EDT Office Visit Gastroenterology, [facility] [address] [place] [address] Lamar Tatum CRNP [address] [place] [address] 04/14/2024 8:40 AM EDT Laboratory Lab Mobile Phlebotomy [facility] [address] [place] [address] [facility] Mobile Home Draw [address] [place] [address] 04/28/2024 8:40 AM EDT Laboratory Lab Mobile Phlebotomy [facility] [address] [place] [address] [facility] Mobile Home Draw [address] [place] [address] 05/12/2024 8:40 AM EDT Laboratory Lab Mobile Phlebotomy [facility] [address] [place] [address] [facility] Mobile Home Draw [address] [place] [address] 05/26/2024 8:40 AM EDT Laboratory Lab Mobile Phlebotomy [facility] [address] [place] [address] [facility] Draw [address] [place] [address] 06/09/2024 8:40 AM EDT Laboratory Lab Mobile Phlebotomy [facility] [address] [place] [address] [facility] Home Draw [address] [place] [address] 06/23/2024 8:40 AM EDT Laboratory Lab Mobile Phlebotomy [facility] [address] [place] [address] [facility] Home Draw [address] [place] [address] 07/07/2024 8:40 AM EDT Laboratory Lab Mobile Phlebotomy [facility] [address] [place] [address] [facility] Home Draw [address] [place] [address] 07/21/2024 8:40 AM EDT Laboratory Lab Mobile Phlebotomy [facility] [address] [place] [address] [facility] Mobile Home Draw [address] [place] [address] 08/04/2024 8:40 AM EDT Laboratory Lab Mobile Phlebotomy [facility] [address] [place] [address] [facility] Draw [address] [place] [address] 08/18/2024 8:40 AM EDT Laboratory Lab Mobile Phlebotomy [facility] [address] [place] [address] [facility] Home Draw [address] [place] [address] 08/20/2024 10:15 AM EDT Office Visit Ophthalmology, [address] [address] Cody Gonzalez, [address] [place] [address] 09/01/2024 8:40 AM EDT Laboratory Lab Mobile Phlebotomy [facility] [address] [place] [address] [facility], [facility] Mobile [facility] Draw [address] [place] [address] 09/15/2024 8:40 AM EDT Laboratory Lab Mobile Phlebotomy [facility] [address] [place] [address] [facility], [facility] Mobile Home Draw [address], [place] [address] Scheduled Procedures Name Priority Associated Diagnoses Date/Ti [...] Additional history exists CKD PHOS USE SMARTSET 26325 01/28/202401/03, 07/26/2022, 12/05/2021, Additional history exists Diabetic Foot Exam 03/06/2024 03/06/2023, 0 01/03/2022, 03/02/2021, Additional history exists HbA1c 05/28/2024 11/27/2023, 05/03, 01/28/2023, Additional history exists GFR 06/22/2024 12/23/2023, 11/01, 08/30/2023, Additional history exists Albumin/Creatinine Ratio 07/12/2024 023, 10/01/2022, 09/11/2021, Additional history exists COLONOSCOPY-ANNUAL AGES 18-100 08/09/2024 08/09/2023, 11/07/2022, 11/07/2022, Additional history exists CKD HGB USE SMARTSET 37759 01/07/202501/07, 01/07/2024, 12/26/2023, Additional history exists Lipid [...] this encounter Medical Devices Implanted Type Area Boot Liner Maker Device Identifier Shelf Expiration Date Model / Serial / Lot Clareon Iol Aspheric Hydrophobic Acrylic Iol Implanted:Qty: 1 on 04/23/2023 by Cody Gonzalez DO at OR [facility] Lens Left: Eye 11/12/2025 [id number] / [id number] / Viatorr Tips Endoprosthesis 8-10 Mm X 8cm / 2cm Implanted:Qty: 1 on 10/07/2020 by Go Alvarado MD at [facility] Right: Abdomen 03/03/2023 [id number] / / [id number] Description:Viatorr TIPS End oprosthesis 8-10 mm x 8cm / 2cm, Manufactored by [employer] Syr Pf 2ml Embospheres 100-300 - [id number] Implanted:Qty: 1 on 04/18/2021 by Kevin Lim DO at OR [facility] Left: Abdomen [employer] [id number] 11/25/2023 [id number] / / [id number] Syr Pf 2ml Embospheres 100-300 - [id number] Implanted:Qty: 1 on 03/28/2022 at [facility] [employer] [id number] 08/31/2024 S220GH / / [id number] Clareon Iol Aspheric Hydrophobic Acrylic Iol Implanted:Qty: 1 on 04/02/2023 by Cody Gonzalez DO at OR [facility] Right: Eye JAZMIN 11/12/2025 CNA0T0 / [id number] / documented as of this encounter Visit Diagnoses Diagnosis Hematuria, gross- Primary Gross hematuria Abnormal cystoscopy Other nonspecific abnormal finding Type 2 diabetes mellitus with stage 3a chronic kidney disease, with long-term current use of insulin (HCC)- Primary Liver cell carcinoma (HCC) Malignant neoplasm of liver, primary Prostate cancer (HCC) Malignant neoplasm of prostate Chronic anemia Anemia, unspecified Hematuria, gross Gross hematuria Abnormal cystoscopy Other nonspecific abnormal finding documented in this encounter Advance Directives Documents on File Type Date Recorded Patient First Breaker Feeder Expl anation Advance Directives and Living Will 12/11/2022 ADVANCE DIRECTIVE / LIVING WILL LIVING WILL Power of Signal Fitter 12/11/2022 POWER OF A TTORNEY Latest Code [...] patient have Health Care Power of Signal Fitter? No Full Code 07/22/2014 9:56 PM 07/24/2014 8:18 PM This order reflects the patients wishes and were consensually agreed upon. Question Answer Comments Discussion of Advance Directives occurred with: Patient Does the patient have a Living Will? No Does the patient have Health Care Power of Signal Fitter? No Care Teams Vendor Manager Relationship Specialty Start Date End Date Francisco Cisse MD [address] [place] [address] PCP - General Internal Medicine 09/04/21 documented as of this encounter"
--- OUTSIDE RECORDS SUMMARY | 2024-01-25 17:10 | External Medical Summary ---
Author Name Unknown Address Unknown Organization K01:[facility] [place] [facility] [address] [facility] [address] Laboratory Report Ordering Provider Test Date Status NEELAM RICCI 01/07/2024 11:32:00 Final Observation Date Value Abnormality Reference (Units ) Status WBC, Total 01/07/2024 11:32:00 3.52 Below low normal 4. 00-10.80 (K/uL) Final RBC 01/07/2024 11:32:00 2.48 4.50-5.25 (M/uL) Final Hemoglobin 01/07/2024 11:32:00 7.8 Below low normal 14 .0-16.8 (g/dL) Final HCT 01/07/2024 11:32:00 25.3 Below low normal 40. 0-48.4 (%) Final MCV 01/07/2024 11:32:00 102.0 82.0-99.5 (fL) Final MCH 01/07/2024 11:32:00 31.5 27.0-34.0 (pg) Final MCHC 01/07/2024 11:32:00 30.8 32.0-36.0 (g/dL) Final RDW 01/07/2024 11:32:00 18.8 11.5-15.5 (%) Final Platelets 01/07/2024 11:32:00 74 Below low normal 140 -400 (K/uL) Final MPV 01/07/2024 11:32:00 Final No result - abnormal platele t distribution. Nucleated erythrocytes/100 leukocytes [Ratio] in Blood by Automated count 01/07/2024 11:32:00 1 Above high normal <=0 (/100 WBCs) Final Performing Location [facility] [place] [address] [facility] [address]
--- OUTSIDE RECORDS SUMMARY | 2024-01-25 17:10 | External Medical Summary | Summary of Care ---
Author Name Unknown Organization [facility] Address [address] [place] [address] Phone [phone] Care Team Providers Care Well Logging Operator Mud Analysis Name Role Phone Francisco Cisse MD Primary Care Provider + Reason for Visit * Reason Onset Date Comments Appointment 01/08/2024 Encounter Details Date Type Department Care Team (Late st Contact Info) Description 01/08/2024 Telephone [facility] [place] [address] [place] [address] Services, Scheduling [address] [place] [address] Appointment (//) Allergies No known active allergiesdocumented [...] goal of less than 7.0% ([facility]) Use to test blood sugars 3 times [...] mRNA, LNP-s, No Pre serve, 2-Dose Series ([employer]) 03/08/2021,02/15/2021 HepA Inact/HepB Recomb>=18yrs old 12/04/2019,04/2019,05/20/2019 [...] Telephone Encounter - Joshua Alvarez OSA - 01/08/2024 2:23 PM EST Call to pt and confirmed ret kaco telemed for 02/06 at 11/1130am, pt agreeable documented in this encounter Plan of Treatment Upcoming Encounters Date Type Department Care Team (Latest Contact Info) Description 01/21/2024 8:40 AM EST Laboratory Lab Mobile Phlebotomy [facility] [address] [place] [address] [facility], [facility] Mobile Home Draw [address] [place] [address] 01/21/2024 10:15 AM EST Cardiac Studies Cardiac Studies, [address] [address] 01/30/2024 12:42 PM EST Hospital Encounter OR [facility], Operating Room, [facility] - 4th Floor [address] [place] [address] Frank Peraza MD [address] [place] [address] 01/30/2024 12:42 PM EST - 01/30/2024 1:44 PM EST Surgery OR [facility], Operating Room, [facility] - 4th Floor [address] [place] [address] Frank Peraza MD [address] [place] [address] CYSTOURETHROSCOPY WITH FULGURATION MEDIUM BLADDER TUMOR 02/04/2024 8:40 AM EST Laboratory Lab Mobile Phlebotomy [facility] [address] [place] [address] [facility], [facility] Mobile Home Draw [address] [place] [address] 02/07/2024 11:00 AM EST Telemedicine [facility] [place] [address] [place] [address] Aidee Miller PA-C [address] [place] [address] Kriss Mays, [facility] [address] [place] [address] 02/14/2024 2:45 PM EDT Office Visit Urology [place]nette Fitzpatrick [address] [place] [address] Frank Peraza MD [address] [place] [address] 02/18/2024 8:40 AM EDT Laboratory Lab Mobile Phlebotomy [facility] [address] [place] [address] [facility], [facility] Mobile Home Draw [address] [place] [address] 03/03/2024 8:40 AM EDT Laboratory Lab Mobile Phlebotomy [facility] [address] [place] [address] [facility], [facility] Mobile Home Draw [address] [place] [address] 03/13/2024 2:00 PM EDT Office Visit Dermatology [address] [place] [address] Francisco Watson MD [address] [facility] [place] [address] 03/17/2024 8:40 AM EDT Laboratory Lab Mobile Phlebotomy [facility] [address] [place] [address] Gm, [facility] Mobile Home Draw [address] [place] [address] 03/24/2024 2:30 PM EDT Office Visit Hematology/Oncolo gy [facility] [address] [facility] [place] [address] Ayaka Tatum CRNP [address] [place] [address] 03/30/2024 12:00 PM EDT Office Visit Family Practice [facility] [address] [place] [address] Kristen Vences DO [address] [place] [address] 03/31/2024 8:40 AM EDT Laboratory Lab Mobile Phlebotomy [facility] [address] [place] [address] [facility], [facility] Draw [address] [place] [address] 04/07/2024 10:00 AM EDT Office Visit Gastroenterology, [facility] [address] [place] [facility] [address] Lamar Tatum CRNP [address] [facility] [address] 04/14/2024 8:40 AM EDT Laboratory Lab Mobile Phlebotomy [facility] [address] [place] [address] G[facility], [facility] Draw [address] [place] [address] 04/28/2024 8:40 AM EDT Laboratory Lab Mobile Phlebotomy [facility] [address] [place] [address] [facility], [facility] Draw [address] [place] [address] 05/12/2024 8:40 AM EDT Laboratory Lab Mobile Phlebotomy [facility] [address] [place] [address] Gmc, [facility] Draw [address] [place] [address] 05/26/2024 8:40 AM EDT Laboratory Lab Mobile Phlebotomy [facility] [address] [place] [address] [facility], [facility] [address] [place] [address] 06/09/2024 8:40 AM EDT Laboratory Lab Mobile Phlebotomy [facility] [address] [place] [address] Gmc, [facility] Draw [address] [place] [address] 06/23/2024 8:40 AM EDT Laboratory Lab Mobile Phlebotomy [facility] [address] [place] [address] Gmc, [facility] Draw [address] [place] [address] 07/07/2024 8:40 AM EDT Laboratory Lab Mobile Phlebotomy [facility] [address] [place] [address] Gmc, [facility] Draw [address] [place] [address] 07/21/2024 8:40 AM EDT Laboratory Lab Mobile Phlebotomy [facility] [address] [place] [address] [facility], [facility] Mobile Home Draw [address] [place] [address] 08/04/2024 8:40 AM EDT Laboratory Lab Mobile Phlebotomy [facility] [address] [place] [address] [facility], [facility] Mobile Home Draw [address] [place] [address] 08/18/2024 8:40 AM EDT Laboratory Lab Mobile Phlebotomy [facility] [address] [place] [address] [facility], [facility] Mobile Home Draw [address] [place] [address] 08/20/2024 10:15 AM EDT Office Visit Ophthalmology, [address] [address] Cody Gonzalez DO [address] [place] [address] 09/01/2024 8:40 AM EDT Laboratory Lab Mobile Phlebotomy [facility] [address] [place] [address] [facility], [facility] Mobile Home Draw [address] [place] [address] 09/15/2024 8:40 AM EDT Laboratory Lab Mobile Phlebotomy [facility] [address] [place] [address] [facility], [facility] Mobile Home Draw [address], [place] [address] Scheduled Procedures Name Priority Associated Diagnoses Date/Ti [...] Additional history exists CKD PHOS USE SMARTSET 31753 01/28/202401/03, 07/26/2022, 12/05/2021, Additional history exists Diabetic Foot Exam 03/06/2024 03/06/2023, 0 01/03/2022, 03/02/2021, Additional history exists HbA1c 05/28/2024 11/27/2023, 05/03, 01/28/2023, Additional history exists GFR 06/22/2024 12/23/2023, 11/01, 08/30/2023, Additional history exists Albumin/Creatinine Ratio 07/12/2024 023, 10/01/2022, 09/11/2021, Additional history exists COLONOSCOPY-ANNUAL AGES 18-100 08/09/2024 08/09/2023, 11/07/2022, 11/07/2022, Additional history exists CKD HGB USE SMARTSET 72156 01/07/202501/07, 01/07/2024, 12/26/2023, Additional history exists Lipid [...] this encounter Medical Devices Implanted Type Area Cut Off Machine Unloader Device Identifier Shelf Expiration Date Model / Serial / Lot Clareon Iol Aspheric Hydrophobic Acrylic Iol Implanted:Qty: 1 on 04/23/2023 by Cody Gonzalez DO at OR [facility] Lens Left: Eye 11/12/2025 [id number] / [id number] / Viatorr Tips Endoprosthesis 8-10 Mm X 8cm / 2cm Implanted:Qty: 1 on 10/07/2020 by Go Alvarado MD at [facility] Right: Abdomen 03/03/2023 [id number] / / [id number] Description:Viatorr TIPS End oprosthesis 8-10 mm x 8cm / 2cm, Manufactored by [employer] Syr Pf 2ml Embospheres 100-300 - [id number] Implanted:Qty: 1 on 04/18/2021 by Kevin Lim DO at OR [facility] Left: Abdomen [employer] [id number] 11/25/2023 S220GH / / [id number] Syr Pf 2ml Embospheres 100-300 - [id number] Implanted:Qty: 1 on 03/28/2022 at [facility] [employer] [id number] 08/31/2024 S220GH / / [id number] -[id number] Clareon Iol Aspheric Hydrophobic Acrylic Iol Implanted:Qty: 1 on 04/02/2023 by Cody Gonzalez DO at OR [facility] Right: Eye JAZMIN 11/12/2025 CNA0T0 / [id number] / documented as of this encounter Advance Directives Documents on File Type Date Recorded Patient Hog Slaughterer Expl anation Advance Directives and Living Will 12/11/2022 ADVANCE DIRECTIVE / LIVING WILL LIVING WILL Power of Labor Trainer 12/11/2022 POWER OF A TTORNEY Latest Code [...] the patient have Health Care Power of Labor Trainer? No Full Code 07/22/2014 9:56 PM 07/24/2014 8:18 PM This order reflects the patients wishes and were consensually agreed upon. Question Answer Comments Discussion of Advance Directives occurred with: Patient Does the patient have a Living Will? No Does the patient have Health Care Power of Labor Trainer? No Care Teams Well Logging Operator Mud Analysis Relationship Specialty Start Date End Date Francisco Cisse MD [address] [facility] [place] [address] PCP - General Internal Medicine 09/04/21 documented as of this encounter
--- OUTSIDE RECORDS SUMMARY | 2024-01-25 17:10 | External Medical Summary | Summary of Care ---
Author Name Unknown Organization [facility] Address [address] [facility] [address] Phone [phone] Care Team Providers Care Health Analyst Name Role Phone Francisco Cisse MD Primary Care Provider + Reason for Visit * Reason Onset Date Comments Advice 01/06/2024 Encounter Details Date Type Department Care Team (Late st Contact Info) Description 01/06/2024 Telephone General Internal Medicine [facility] 200 [facility] [place] [address] Francisco Cisse MD [address] [place] [address] Advice Allergies No known active allergiesdocumented as [...] mRNA, LNP-s, No Pre serve, 2-Dose Series ([employer]) 03/08/2021,02/15/2021 HepA Inact/HepB Recomb>=18yrs old 12/04/2019,04/2019,05/20/2019 11/19/2019 PPD 06/18/2017, 3,01/09/2012,06/2011 Pneumococcal Conjugate Vacc, 13 Valent (Prevnar) 05/01/2017 Pneumococcal Polysaccharide PPV23 (Pneumovax) 08/28/2022,10/25/2015,07/14/2012 Season Influenza, Quad, PF, Adjuvanted, 65+ Yrs, IM (FLUAD) 10/07/2020(Deferred: Patient Refused - pt says he already had his shot last month at [facility] Handy Lyons and Mckinley Cobian [...] pain at this current time. Procedure at [facility] with Dr Peraza to do a [...] 8:40 AM EST Laboratory Lab Mobile Phlebotomy [facility] [address] [place] [address] [facility], [facility] Mobile Home Draw [address] [place] [address] 01/21/2024 10:15 AM EST Cardiac Studies Cardiac Studies, [facility] [address] [facility] [address] 01/30/2024 12:42 PM EST Hospital Encounter OR [facility], Operating Room, [facility] - 4th Floor [address] [place] [address] Frank Peraza MD [address] [place] [address] 01/30/2024 12:42 PM EST - 01/30/2024 1:44 PM EST Surgery OR [facility], Operating Room, [facility] - 4th Floor [address] [place] [address] Frank Peraza MD [address] [place] [address] CYSTOURETHROSCOPY WITH FULGURATION MEDIUM BLADDER TUMOR 02/04/2024 8:40 AM EST Laboratory Lab Mobile Phlebotomy [facility] [address] [place] [address] Gmc, [facility] Mobile Home Draw [address] [place] [address] 02/14/2024 2:45 PM EDT Office Visit Urology Lynnette Fitzpatrick [address] [place] [address] Frank Peraza MD [address] [place] [address] 02/18/2024 8:40 AM EDT Laboratory Lab Mobile Phlebotomy [facility] [address] [place] [address] Gmc, [facility] Mobile Home Draw [address] [place] [address] 03/03/2024 8:40 AM EDT Laboratory Lab Mobile Phlebotomy [facility] [address] [place] [address] Gmc, [facility] Draw [address] [place] [address] 03/13/2024 2:00 PM EDT Office Visit Dermatology [facility] [address] [facility] [place] [address] Francisco Watson MD [address] [facility] [place] [address] 03/17/2024 8:40 AM EDT Laboratory Lab Mobile Phlebotomy C [address] [place] [address] Gmc, G[facility] Mobile Home Draw [address] [place] [address] 03/24/2024 2:30 PM EDT Office Visit Hematology/Oncolo gy [facility] [address] [facility] [place] [address] Ayaka Tatum CRNP [address] [place] [address] 03/30/2024 12:00 PM EDT Office Visit Family Practice [facility] [address] [place] [address] Kristen Vences DO [address] [place] [address] 03/31/2024 8:40 AM EDT Laboratory Lab Mobile Phlebotomy [facility] [address] [place] [address] Gmc, G[facility] Mobile Home Draw [address] [place] [address] 04/07/2024 10:00 AM EDT Office Visit Gastroenterology, [facility] [address] [place] [address] Lamar Tatum CRNP [address] [place] [address] 04/14/2024 8:40 AM EDT Laboratory Lab Mobile Phlebotomy [facility] [address] [place] [address] Gmc, Gml Mobile Home Draw [address] [place] [address] 04/28/2024 8:40 AM EDT Laboratory Lab Mobile Phlebotomy C [address] [place] [address] Gmc, [facility] Home Draw [address] [place] [address] 05/12/2024 8:40 AM EDT Laboratory Lab Mobile Phlebotomy C [address] [place] [address] Gmc, [facility] Mobile Home Draw [address] [place] [address] 05/26/2024 8:40 AM EDT Laboratory Lab Mobile Phlebotomy [facility] [address] [place] [address] Gmc, Gml Mobile Home Draw [address] [place] [address] 06/09/2024 8:40 AM EDT Laboratory Lab Mobile Phlebotomy [facility] [address] [place] [address] Gmc, [facility] Mobile Home Draw [address] [place] [address] 06/23/2024 8:40 AM EDT Laboratory Lab Mobile Phlebotomy [facility] [address] [place] [address] Gmc, Gml Mobile Home Draw [address] [place] [address] 07/07/2024 8:40 AM EDT Laboratory Lab Mobile Phlebotomy [facility] [address] [place] [address] Gmc, [facility] Mobile Home Draw [address] [place] [address] 07/21/2024 8:40 AM EDT Laboratory Lab Mobile Phlebotomy [facility] [address] [place] [address] Gmc, [facility] Mobile Home Draw [address] [place] [address] 08/04/2024 8:40 AM EDT Laboratory Lab Mobile Phlebotomy [facility] [address] [place] [address] Gmc, Gml Mobile Home Draw [address] [place] [address] 08/18/2024 8:40 AM EDT Laboratory Lab Mobile Phlebotomy [facility] [address] [place] [address] Gmc, Gml Mobile Home Draw [address] [place] [address] 08/20/2024 10:15 AM EDT Office Visit Ophthalmology, [facility] [address] [facility] [place] [address] Cody [facility] DO [address] [facility] [address] 09/01/2024 8:40 AM EDT Laboratory Lab Mobile Phlebotomy [facility] [address] [place] [address] [facility], [facility] Mobile Home Draw [address] [place] [address] 09/15/2024 8:40 AM EDT Laboratory Lab Mobile Phlebotomy [facility] [address] [place] [address] [facility], [facility] Mobile Home Draw [address] [place] [address] Scheduled Procedures Name Priority Associated Diagnoses Date/Ti [...] Additional history exists CKD PHOS USE SMARTSET 71688 01/28/202401/03, 07/26/2022, 12/05/2021, Additional history exists Diabetic Foot Exam 03/06/2024 03/06/2023, 0 01/03/2022, 03/02/2021, Additional history exists HbA1c 05/28/2024 11/27/2023, 05/03, 01/28/2023, Additional history exists GFR 06/22/2024 12/23/2023, 11/01, 08/30/2023, Additional history exists Albumin/Creatinine Ratio 07/12/2024 023, 10/01/2022, 09/11/2021, Additional history exists COLONOSCOPY-ANNUAL AGES 18-100 08/09/2024 08/09/2023, 11/07/2022, 11/07/2022, Additional history exists CKD HGB USE SMARTSET 35059 12/26/202412/26, 12/26/2023, 12/23/2023, Additional history exists Lipid [...] this encounter Medical Devices Implanted Type Area Alum Mixer Device Identifier Shelf Expiration Date Model / Serial / Lot Clareon Iol Aspheric Hydrophobic Acrylic Iol Implanted:Qty: 1 on 04/23/2023 by Cody Gonzalez DO at OR [facility] Lens Left: Eye 11/12/2025 CNA0T0 / [id number] / Viatorr Tips Endoprosthesis 8-10 Mm X 8cm / 2cm Implanted:Qty: 1 on 10/07/2020 by Go Alvarado MD at [facility] Right: Abdomen 03/03/2023 [id number] / / [id number] Description:Viatorr TIPS End oprosthesis 8-10 mm x 8cm / 2cm, Manufactored by [employer] Syr Pf 2ml Embospheres 100-300 - [id number] Implanted:Qty: 1 on 04/18/2021 by Kevin Lim DO at OR [facility] Left: Abdomen [employer] [id number] 11/25/2023 S220GH / / [id number] Syr Pf 2ml Embospheres 100-300 - [id number] Implanted:Qty: 1 on 03/28/2022 at [facility] Cardiovascular Provider [employer] [id number] 08/31/2024 S220GH / / [id number] -[id number] Clareon Iol Aspheric Hydrophobic Acrylic Iol Implanted:Qty: 1 on 04/02/2023 by Cody Gonzalez DO at OR [facility] Right: Eye JAZMIN 11/12/2025 CNA0T0 / [id number] / documented as of this encounter Advance Directives Documents on File Type Date Recorded Patient Spin Table Operator Expl anation Advance Directives and Living Will 12/11/2022 ADVANCE DIRECTIVE / LIVING WILL LIVING WILL Power of Risk Control Product Liability Director 12/11/2022 POWER OF A TTORNEY Latest Code [...] the patient have Health Care Power of Risk Control Product Liability Director? No Full Code 07/22/2014 9:56 PM 07/24/2014 8:18 PM This order reflects the patients wishes and were consensually agreed upon. Question Answer Comments Discussion of Advance Directives occurred with: Patient Does the patient have a Living Will? No Does the patient have Health Care Power of Risk Control Product Liability Director? No Care Teams Health Analyst Relationship Specialty Start Date End Date Francisco Cisse MD [address] [place] [address] PCP - General Internal Medicine 09/04/21 documented as of this encounter
--- OUTSIDE RECORDS SUMMARY | 2024-01-25 17:10 | External Medical Summary | Summary of Care ---
Author Name Unknown Organization [facility] Address [address] [place] [address] Phone [phone] Care Team Providers Care Silverware Washer Name Role Phone Francisco Cisse MD Primary Care Provider + Reason for Visit * Reason Onset Date Comments Abnormal Lab Results 01/09/2024 CBCD Encounter Details Date Type Department Care Team (Late st Contact Info) Description 01/09/2024 Telephone Hematology/Oncology [facility] 200 [facility] [address] Ayaka Tatum CRNP [address] [facility] [place] [address] Abnormal Lab Results (CBCD) Allergies No [...] A1c goal of less than 7.0% ([facility]) Use to test blood sugars 3 [...] mRNA, LNP-s, No Pre serve, 2-Dose Series ([facility]) 03/08/2021,02/15/2021 HepA Inact/HepB Recomb>=18yrs old 12/04/2019,04/2019,05/20/2019 11/19/2019 PPD 06/18/2017, 3,01/09/2012,0306/2011 Pneumococcal Conjugate Vacc, 13 Valent (Prevnar) 05/01/2017 Pneumococcal Polysaccharide PPV23 (Pneumovax) 08/28/2022,10/25/2015,07/14/2012 Season Influenza, Quad, PF, Adjuvanted, 65+ Yrs, IM (FLUAD) 10/07/2020(Deferred: Patient Refused - pt says he already had his shot last month at [facility] [place] and [place] [...] 8:40 AM EST Laboratory Lab Mobile Phlebotomy [facility] [address] [place] [address] [facility], [facility] Mobile Home Draw [address] [place] [address] 01/21/2024 10:15 AM EST Cardiac Studies Cardiac Studies, [address] [place] [address] 01/30/2024 12:42 PM EST Hospital Encounter OR GL, Operating Room, [facility] - 4th Floor 400 [facility] [place] [address] Frank Peraza MD [address] [place] [address] 01/30/2024 12:42 PM EST - 01/30/2024 1:44 PM EST Surgery OR GL, Operating Room, [facility] - 4th Floor 400 [facility] [place] [address] Frank Peraza MD [address] [facility] [address] [place] [address] CYSTOURETHROSCOPY WITH FULGURATION MEDIUM BLADDER TUMOR 02/04/2024 8:40 AM EST Laboratory Lab Mobile Phlebotomy [facility] [address] [place] [address] [facility], [facility] Mobile Home Draw [address] [place] [address] 02/07/2024 11:00 AM EST Telemedicine [facility] [place] [address] [place] [address] Aidee Miller PA-C [address] [place] [address] Kriss Mays, [facility] [employer] [address] [place] [address] 02/14/2024 2:45 PM EDT Office Visit Urology Lynnette Fitzpatrick [address] [place] [address] Frank Peraza MD [address] [place] [address] 02/18/2024 8:40 AM EDT Laboratory Lab Mobile Phlebotomy [facility] [address] [place] [address] G[facility], [facility] Mobile Home Draw [address] [place] [address] 03/03/2024 8:40 AM EDT Laboratory Lab Mobile Phlebotomy [facility] [address] [place] [address] Gmc, Gml Mobile Home Draw [address] [place] [address] 03/13/2024 2:00 PM EDT Office Visit Dermatology [facility] 200 [facility] [place] [address] Francisco Watson MD 200 [facility] [place] [address] 03/17/2024 8:40 AM EDT Laboratory Lab Mobile Phlebotomy [facility] [address] [place] [address] [facility], [facility] Mobile Home Draw [address] [place] [address] 03/24/2024 2:30 PM EDT Office Visit Hematology/Oncolo gy [facility] 200 [facility] [address] Ayaka Tatum CRNP [address] [place] [address] 03/30/2024 12:00 PM EDT Office Visit Family Practice [facility] [address] [place] [address] Kristen Vences DO [address] [place] [address] 03/31/2024 8:40 AM EDT Laboratory Lab Mobile Phlebotomy [facility] [address] [place] [address] Gmc, Gml Mobile Home Draw [address] [place] [address] 04/07/2024 10:00 AM EDT Office Visit Gastroenterology, [facility] [address] [place] [address] Lamar Tatum CRNP [address] [place] [address] 04/14/2024 8:40 AM EDT Laboratory Lab Mobile Phlebotomy [facility] [address] [place] [address] Gmc, Gml Mobile Home Draw [address] [place] [address] 04/28/2024 8:40 AM EDT Laboratory Lab Mobile Phlebotomy [facility] [address] [place], [place] [address] Gmc, Gml Mobile Home Draw [address] [place] [address] 05/12/2024 8:40 AM EDT Laboratory Lab Mobile Phlebotomy [facility] [address] [place] [address] Gmc, Gml Mobile Home Draw [address] [place] [address] 05/26/2024 8:40 AM EDT Laboratory Lab Mobile Phlebotomy [facility] [address] [place] [address] Gmc, Gml Mobile Home Draw [address] [place] [address] 06/09/2024 8:40 AM EDT Laboratory Lab Mobile Phlebotomy C [address] [place] [address] Gmc, Gml Mobile Home Draw [address] [place] [address] 06/23/2024 8:40 AM EDT Laboratory Lab Mobile Phlebotomy [facility] [address] [place] [address] Gmc, Gml Mobile Home Draw [address] [place] [address] 07/07/2024 8:40 AM EDT Laboratory Lab Mobile Phlebotomy [facility] [address] [place] [address] Gmc, Gml Mobile Home Draw [address] [place] [address] 07/21/2024 8:40 AM EDT Laboratory Lab Mobile Phlebotomy [facility] [address] [place] [address] Gmc, Gml Mobile Home Draw [address] [place] [address] 08/04/2024 8:40 AM EDT Laboratory Lab Mobile Phlebotomy [facility] [address] [place] [address] Gmc, Gml Mobile Home Draw [address] [place] [address] 08/18/2024 8:40 AM EDT Laboratory Lab Mobile Phlebotomy [facility] [address] [place] [address] Gmc, Gml Mobile Home Draw [address] [place] [address] 08/20/2024 10:15 AM EDT Office Visit Ophthalmology, [address] [address] Cody Gonazlez DO [facility] [place] [address] 09/01/2024 8:40 AM EDT Laboratory Lab Mobile Phlebotomy [facility] [address] [place] [address] Gmc, Gml Mobile Home Draw [address] [place] [address] 09/15/2024 8:40 AM EDT Laboratory Lab Mobile Phlebotomy [facility] [address] [place] [address] [facility], [facility] Mobile Home Draw [address] [place] [address] Scheduled Procedures Name Priority Associated Diagnoses Date/Ti co CYSTOURETHROSCOPY WITH FULGU RATION MEDIUM BLADDER TUMOR [...] Additional history exists CKD PHOS USE SMARTSET 55628 01/28/202401/03, 07/26/2022, 12/05/2021, Additional history exists Diabetic Foot Exam 03/06/2024 03/06/2023, 0 01/03/2022, 03/02/2021, Additional history exists HbA1c 05/28/2024 11/27/2023, 05/03, 01/28/2023, Additional history exists GFR 06/22/2024 12/23/2023, 11/01, 08/30/2023, Additional history exists Albumin/Creatinine Ratio 07/12/2024 023, 10/01/2022, 09/11/2021, Additional history exists COLONOSCOPY-ANNUAL AGES 18-100 08/09/2024 08/09/2023, 11/07/2022, 11/07/2022, Additional history exists CKD HGB USE SMARTSET 74742 01/07/202501/07, 01/07/2024, 12/26/2023, Additional history exists Lipid [...] this encounter Medical Devices Implanted Type Area Quarryman Device Identifier Shelf Expiration Date Model / Serial / Lot Clareon Iol Aspheric Hydrophobic Acrylic Iol Implanted:Qty: 1 on 04/23/2023 by Cody Gonzalez DO at OR [facility] Lens Left: Eye 11/12/2025 CNA0T0 / [id number] / Viatorr Tips Endoprosthesis 8-10 Mm X 8cm / 2cm Implanted:Qty: 1 on 10/07/2020 by Go Alvarado MD at [facility] Right: Abdomen 03/03/2023 [id number] / / [id number] Description:Viatorr TIPS End oprosthesis 8-10 mm x 8cm / 2cm, Manufactored by [employer] Syr Pf 2ml Embospheres 100-300 - [id number] Implanted:Qty: 1 on 04/18/2021 by Kevin Lim DO at OR [facility] Left: Abdomen [employer] [id number] 11/25/2023 S220GH / / [id number] Syr Pf 2ml [facility] 100-300 - [id number] Implanted:Qty: 1 on 03/28/2022 at [facility] [employer] [id number] 08/31/2024 S220GH / / [id number] -[id number] Clareon Iol Aspheric Hydrophobic Acrylic Iol Implanted:Qty: 1 on 04/02/2023 by Cody Gonzalez DO at OR [facility] Right: Eye JAZMIN 11/12/2025 CNA0T0 / [id number] / documented as of this encounter Advance Directives Documents on File Type Date Recorded Patient Senior C Developer Expl anation Advance Directives and Living Will 12/11/2022 ADVANCE DIRECTIVE / LIVING WILL LIVING WILL Power of Incinerator Attendant 12/11/2022 POWER OF A TTORNEY Latest [...] the patient have Health Care Power of Incinerator Attendant? No Full Code 07/22/2014 9:56 PM 07/24/2014 8:18 PM This order reflects the patients wishes and were consensually agreed upon. Question Answer Comments Discussion of Advance Directives occurred with: Patient Does the patient have a Living Will? No Does the patient have Health Care Power of Incinerator Attendant? No Care Teams Silverware Washer Relationship Specialty Start Date End Date Francisco Cisse MD 200 [facility] [place] [address] PCP - General Internal Medicine 10/4/21 documented as of this encounter
--- OUTSIDE RECORDS SUMMARY | 2024-01-25 17:11 | External Medical Summary | Summary of Care ---
Author Name Unknown Organization [facility] Address [address] [place] [address] Phone [phone] Care Team Providers Care Metal Furnace Operator Name Role Phone Francisco Cisse MD Primary Care Provider + Reason for Visit * Reason Onset Date Comments Outpatient Testing 12/26/2023 Encounter Details Date Type Department Care Team (Late st Contact Info) Description 12/26/2023 [facility] [address] [place] [address] Jocelyne Sykes, RN Outpatient Testing Allergies No known active allergiesdocumented as of this encounter (statuses as of 12/26/2023) Medications Medication Sig Dispensed Refills Start Date [...] as of this encounter (statuses as of 12/26/2023) Active Problems Problem Noted Date Diagnosed Date [...] as of this encounter (statuses as of 12/26/2023) Resolved Problems Problem Noted Date Diagnosed Date [...] 02/09/2019 04/13/2021 Overview: Per CKD protocol #1 FFOANA (nonalcoholic steatohepatitis) 09/03/2018 01/18/2023 NAFLD (nonalcoholic fatty [...] as of this encounter (statuses as of 12/26/2023) Immunizations Name Administration Dates Next Due COVID-19 mRNA, LNP-s, No Pre serve, 2-Dose Series ([employer]) 03/08/2021,02/15/2021 HepA Inact/HepB Recomb>=18yrs old 12/04/2019,04/2019,05/20/2019 [...] encounter Miscellaneous Notes * Telephone Encounter - Jocelyne Sykes, RN - 12/26/2023 3:52 PM EST Imaging from MRI of the Abdomen completed on 12/12/23 at [facility] has been pushed into the vitalclip system for review. MRI reviewed with Dr. Ramirez and Dr. Ramirez who feel the current MRI is unchanged as compared to previous imaging. [facility] I contacted Mr. Hale and reviewed that he may cancel his MRI scheduled for tomorrow. I also shared the recommendations that his next MRI be completed at [facility]. He is agreeable to both of these ideas. I personally contacted MRI and cancelled the appointment. documented in this encounter Plan of Treatment Upcoming Encounters Date Type Department Care Team (Latest Contact Info) Description 12/30/2023 11:00 AM EST Home Visit Care Coordination and Integration [address] [place] [address] Kriss Mays, [facility] [employer] [address] [place] [address] 01/07/2024 8:40 AM EST Laboratory Lab Mobile Phlebotomy [facility] [address] [place] [address] [facility] [place], [facility] Mobile Home Draw [address] [place] [address] 01/21/2024 8:40 AM EST Laboratory Lab Mobile Phlebotomy [facility] [address] [place] [address] [facility] [place], [facility] Mobile Home Draw [address] [place] [address] 01/21/2024 10:15 AM EST Cardiac Studies Cardiac Studies, [facility] [address] [place] [address] 01/30/2024 2:05 PM EST Hospital Encounter OR GL, Operating Room, [facility] - 4th Floor [address] [place] [address] Frank Peraza MD [address] [place] [address] 01/30/2024 2:05 PM EST - 01/30/2024 3:07 PM EST Surgery OR [facility], Operating Room, [facility] - 4th Floor [address] [place] [address] Frank Peraza MD [address] [place] [address] CYSTOURETHROSCOPY WITH FULGURATION MEDIUM BLADDER TUMOR 02/04/2024 8:40 AM EST Laboratory Lab Mobile Phlebotomy [facility] [address] [place] [address] [facility] [place], [facility] Mobile Home Draw [address] [place] [address] 02/14/2024 2:45 PM EDT Office Visit Urology Lynnette Fitzpatrick [address] [place] [address] Frank Peraza MD [address] [place] [address] 02/18/2024 8:40 AM EDT Laboratory Lab Mobile Phlebotomy [facility] [address] [place] [facility] [place] [address] [facility] [place], l Mobile Home Draw [address] [place] [address] 03/03/2024 8:40 AM EDT Laboratory Lab Mobile Phlebotomy [facility] [address] [place] [address] [facility] [place], [facility] Mobile Home Draw [address] [place] [address] 03/13/2024 2:00 PM EDT Office Visit Dermatology [facility] 200 [place] [address] Francisco Watson MD 200 [place] [address] 03/17/2024 8:40 AM EDT Laboratory Lab Mobile Phlebotomy [facility] [address] [place] [address] [facility] [place], [facility] Mobile Home Draw [address] [place] [address] 03/24/2024 2:30 PM EDT Office Visit Hematology/Oncology [facility] [address] [place] [address] Ayaka Tatum CRNP [address] [place] [address] 03/30/2024 12:00 PM EDT Office Visit Family Practice [facility] 132 [facility] [address] Kristen Vences DO [address] [facility] [address] 03/31/2024 8:40 AM EDT Laboratory Lab Mobile Phlebotomy [facility] [address] [place] [address] [facility] [place], [facility] Mobile Home Draw [address] [place] [address] 04/07/2024 10:00 AM EDT Office Visit Gastroenterology, [facility] 132 [facility] [place] [address] Lamar Tatum CRNP [address] [place] [address] 04/14/2024 8:40 AM EDT Laboratory Lab Mobile Phlebotomy [facility] [address] [place] [address] Gmc, Gml Mobile Home Draw [address] [place] [address] 04/28/2024 8:40 AM EDT Laboratory Lab Mobile Phlebotomy [facility] [address] [place] [address] Gmc, Gml Mobile Home Draw [address] [place] [address] 05/12/2024 8:40 AM EDT Laboratory Lab Mobile Phlebotomy [facility] [address] [place] [address] Gmc, Gml Mobile Home Draw [address] [place] [address] 05/26/2024 8:40 AM EDT Laboratory Lab Mobile Phlebotomy [facility] [address] [place] [address] Gmc, Gml Mobile Home Draw [address] [place] [address] 06/09/2024 8:40 AM EDT Laboratory Lab Mobile Phlebotomy [facility] [address] [place] [address] Gmc, Gml Mobile Home Draw [address] [place] [address] 06/23/2024 8:40 AM EDT Laboratory Lab Mobile Phlebotomy [facility] [address] [place] [address] Gmc, Gml Mobile Home Draw [address] [place] [address] 07/07/2024 8:40 AM EDT Laboratory Lab Mobile Phlebotomy [facility] [address] [place] [address] Gmc, Gml Mobile Home Draw [address] [place] [address] 07/21/2024 8:40 AM EDT Laboratory Lab Mobile Phlebotomy [facility] [address] [place] [address] Gmc, Gml Mobile Home Draw [address] [place] [address] 08/04/2024 8:40 AM EDT Laboratory Lab Mobile Phlebotomy [facility] [address] [place] [address] Gmc, Gml Mobile Home Draw [address] [place] [address] 08/18/2024 8:40 AM EDT Laboratory Lab Mobile Phlebotomy [facility] [address] [place] [address] Gmc, Gml Mobile Home Draw [address] [place] [address] 08/20/2024 10:15 AM EDT Office Visit Ophthalmology, [address] [address] Cody Gonzalez, [address] [place] [address] 09/01/2024 8:40 AM EDT Laboratory Lab Mobile Phlebotomy [facility] [address] [place] [address] Gmc, Gml Mobile Home Draw [address] [place] [address] 09/15/2024 8:40 AM EDT Laboratory Lab Mobile Phlebotomy [facility] [address] [place] [address] Gmc, Gml Mobile Home Draw [address] [place] [address] Scheduled Procedures Name Priority Associated Diagnoses Date/Ti me CYSTOURETHROSCOPY WITH FULGU RATION MEDIUM BLADDER TUMOR Hematuria, gross Abnormal cystoscopy 01/30/2024 2:05 PM EST COLONOSCOPY FLEXIBLE PROXIMA L DIAGNOSTIC [...] Additional history exists CKD PHOS USE SMARTSET 37850 01/28/202401/03, 07/26/2022, 12/05/2021, Additional history exists Diabetic Foot Exam 03/06/2024 03/06/2023, 0 01/03/2022, 03/02/2021, Additional history exists HbA1c 05/28/2024 11/27/2023, 05/03, 01/28/2023, Additional history exists GFR 06/22/2024 12/23/2023, 11/01, 08/30/2023, Additional history exists Albumin/Creatinine Ratio 07/12/2024 023, 10/01/2022, 09/11/2021, Additional history exists COLONOSCOPY-ANNUAL AGES 18-100 08/09/2024 08/09/2023, 11/07/2022, 11/07/2022, Additional history exists CKD HGB USE SMARTSET 22303 12/23/202412/23, 12/23/2023, 12/19/2023, Additional history exists Lipid Panel 01/28/2028 01/28/2023, [...] this encounter Medical Devices Implanted Type Area Analytical Engineer Device Identifier Shelf Expiration Date Model / Serial / Lot Clareon Iol Aspheric Hydrophobic Acrylic Iol Implanted:Qty: 1 on 04/23/2023 by Cody Gonzalez DO at OR [facility] Lens Left: Eye 11/12/2025 CNA0T0 / [id number] / Viatorr Tips Endoprosthesis 8-10 Mm X 8cm / 2cm Implanted:Qty: 1 on 10/07/2020 by Go Alvarado MD at [facility] Right: Abdomen 03/03/2023 [id number] / / [id number] Description:Viatorr TIPS End oprosthesis 8-10 mm x 8cm / 2cm, Manufactored by [employer] Syr Pf 2ml Embospheres 100-300 - [id number] Implanted:Qty: 1 on 04/18/2021 by Kevin Lim DO at OR [facility] Left: Abdomen [employer] [id number] 11/25/2023 S220GH / / [id number] Syr Pf 2ml Embospheres 100-300 - [id number] Implanted:Qty: 1 on 03/28/2022 at [facility] [employer] [id number] 08/31/2024 S220GH / / [id number] Clareon Iol Aspheric Hydrophobic Acrylic Iol Implanted:Qty: 1 on 04/02/2023 by Cody Gonzalez DO at OR [facility] Right: Eye JAZMIN 11/12/2025 CNA0T0 / [id number] / documented as of this encounter Advance Directives Documents on File Type Date Recorded Patient Rotary Cutter Expl anation Advance Directives and Living Will 12/11/2022 ADVANCE DIRECTIVE / LIVING WILL LIVING WILL Power of Labels Molder 12/11/2022 POWER OF A TTORNEY Latest [...] the patient have Health Care Power of Labels Molder? No Full Code 07/22/2014 9:56 PM 07/24/2014 8:18 PM This order reflects the patients wishes and were consensually agreed upon. Question Answer Comments Discussion of Advance Directives occurred with: Patient Does the patient have a Living Will? No Does the patient have Health Care Power of Labels Molder? No Care Teams Metal Furnace Operator Relationship Specialty Start Date End Date Francisco Cisse MD 200 [place] [place] [address] PCP - General Internal Medicine 09/04/21 documented as of this encounter
--- OUTSIDE RECORDS SUMMARY | 2024-01-25 17:11 | External Medical Summary | Summary of Care ---
Author Name Unknown Organization [facility] Address [address] [facility] [place] [address] Phone [phone] Care Team Providers Care [facility] [facility] [employer] Name Role Phone Francisco Cisse MD Primary Care Provider + Reason for Visit * Reason Comments Hospital Follow-Up NEW PATIENT New pt to get establ ished and also hospital f/u apt was in hospital 12/15/23, has multiple health issues. Encounter Details Date Type Department Care Team (Late st Contact Info) Description 12/26/2023 9:40 AM EST Office Visit Family [facility] [address] [place] [address] Robinson Olson CRNP [address] [place] [address] Hospital discharge follow-up*; Type 2 diabetes mellitus with stage 3a chronic kidney disease, with long-term current use of insulin (HCC); Liver cell carcinoma (HCC); History of prostate cancer; Pre-liver transplant, patient on transplant list; Chronic anemia; Chronic gout due to renal impairment of multiple sites without tophus Allergies No known active allergiesdocumented as of this encounter (statuses as of 12/27/2023) Medications Medication Sig Dispensed Refills Start Date [...] 05/17/2023 Active Furosemide 20 MG Oral Tablet (Lasix)Indications: [...] before bedtime. 180 Tablet 5 11/26/2023 Active oxyCODONE HCl 5 MG Oral Tablet (Oxy IR)Indications:Othe r closed fracture of twelfth thoracic vertebra, initial encounter (HCC) Take 1 Tablet by mouth every 6 hours as needed for Pain, Severe. 28 Tablet 0 07/12/2023 12/26/19 24 Discontinu ed(Medicat ion List Clean Up) Hospital, Clinic, or Other Facility Administered Medication [...] as of this encounter (statuses as of 12/27/2023) Active Problems Problem Noted Date Diagnosed Date [...] as of this encounter (statuses as of 12/27/2023) Resolved Problems Problem Noted Date Diagnosed Date [...] as of this encounter (statuses as of 12/27/2023) Immunizations Name Administration Dates Next Due COVID-19 mRNA, LNP-s, No Pre serve, 2-Dose Series ([employer]) 03/08/2021,02/15/2021 HepA Inact/HepB Recomb>=18yrs old 12/04/2019,04/2019,05/20/2019 11/19/2019 [...] Sign Reading Time Taken Comments Blood Pressure 124/58 12/26/2023 9:26 AM EST Pulse 54 12/26/2023 9:26 AM EST Temperature 35.6 C (96.1 F) 12/26/2023 9:26 AM ES T Respiratory Rate 16 12/26/2023 9:26 AM EST Oxygen Saturation 98% 12/26/2023 9:26 AM EST Inhaled Oxygen Concentration - - Weight 83.5 kg (184 lb) 12/26/2023 9:26 AM EST Height 171 cm (5' 7.32") 12/26/2023 9:26 AM EST Body Mass Index 28.55 12/26/2023 9:26 AM EST documented in this [...] as of this encounter Progress Notes * Robinson Olson CRNP - 12/26/2023 9:30 AM EST Images from the original note were not included. Follow up Family Medicine Visit History of Present Illness Luis Hale is a 73 year old male with complex PMH of hepatocellular carcinoma s/p IR embolization/portal vein thrombus, h/o FOFANA cirrhosis s/p TIPS, prostate CA s/p radiation 2020, DM2, CKE, psoriasis, depression and others listed below presenting with hospital follow up. 12/12/23-12/15/23 [facility] for blood in urine/stool, abdominal pain, hbg on admission was 7.5 and he received blood transfusion CT abdo/pelvis - no acute, but asymmetric bladder thickening Was hospitalized with similar issue in November. Since discharge, he had f/u with hematology -- cbc every 2 weeks, and blood transfusion if needed Had cystocopy done with Dr. Peraza, radiation cystitis vs early malignancy, paln for cystourethroscopy in January Since discharge, he is clinically doing well. 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 enjoys music, 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 Social Determinants of Health Financial Resource Strain: Not on file Food Insecurity: No Food Insecurity (08/14/2023) Hunger Vital Sign Worried About Running Out of Food in the Last Year: Never true Ran Out of Food in the Last Year: Never true Transportation Needs: Not on file Physical Activity: Not on file Stress: Not on file Social Connections: Not on file Intimate Partner Violence: Not on file Housing Stability: Not on file PMH: Past Medical History: Diagnosis Date Acquired thrombocytopenia (HCC) 09/05/2017 Allergic rhinitis Anemia Anxiety and depression Aortic valve sclerosis 02/01/2023 Benign neoplasm of colon 04/16/2013 COLONOSCOPY FLEXIBLE PROXIMAL DIAGNOSTIC performed by Salvador Lopez MD at [facility], adenomatous polyps repeat colonoscopy in 3 year Closed compression fracture of body of L1 vertebra (HCC) 12/07/2021 Closed T12 spinal fracture ([facility]) 07/12/2023 Diverticulitis of colon fall 2004 DM type 2, goal A1c below 7 07/14/2012 GERD (gastroesophageal reflux disease) Mild mitral regurgitation 03/15/2022 NAFLD (nonalcoholic fatty liver disease) 04/25/2016 Obesity, BMI not known Other psoriasis and similar disorders Pancytopenia (HCC) 05/03/2021 PONV (postoperative nausea and vomiting) Prolonged Q-T interval on ECG 09/11/2021 Prostate cancer ([facility]) 03/02/2021 Pulmonary hypertension ([facility]) 02/01/2023 Past Surgical History: Procedure Laterality Date CATARACT SURGERY,COMPLEX Right 04/02/2023 EXTRACAPSULAR CATARACT REMOVAL COMPLEX WITH IOL performed by Cody Gonzalez DO at OR [facility] CATARACT SURGERY,COMPLEX Left 04/23/2023 LEFT EXTRACAPSULAR CATARACT REMOVAL COMPLEX WITH IOL performed by Cody Gonzalez DO at OR [facility] COLONOSCOPY 08/27/2005 lock haven/hemorrhoids non internal COLONOSCOPY, DIAGNOSTIC (RECTUM) 04/16/2013 COLONOSCOPY FLEXIBLE PROXIMAL DIAGNOSTIC performed by Salvador Lopez MD at [facility], adenomatous polyps repeat colonoscopy in 3 years COLONOSCOPY, DIAGNOSTIC (RECTUM) 05/03/2016 adenomatous polyps, diverticulosis, repeat 5 yrs/COLONOSCOPY FLEXIBLE PROXIMAL DIAGNOSTIC performedby Salvador Lopez MD at ENDOSCOPY [facility] COLONOSCOPY, DIAGNOSTIC (RECTUM) 07/19/2020 adenomatous & hyperplastic polyps, diverticulosis, repeat 3 yrs / [facility] COLONOSCOPY, DIAGNOSTIC (RECTUM) 11/30/2021 mild XRT proctitis, diverticulosis / COLONOSCOPY FLEXIBLE PROXIMAL DIAGNOSTIC performed by Barbara March DO at ENDOSCOPY [facility] COLONOSCOPY, DIAGNOSTIC (RECTUM) 02/01/2022 Mild XRT proctitis / COLONOSCOPY FLEXIBLE PROXIMAL DIAGNOSTIC performed by Barbara March DO at [facility]COPY [facility] COLONOSCOPY, DIAGNOSTIC (RECTUM) N/A 11/07/2022 poor prep/diverticulosis sigmoid colon/rectal angioectasias consistent with radiation proctopathy/Colonoscopy/DE COLONOSCOPY, DIAGNOSTIC (RECTUM) N/A 08/09/2023 poor prep/moderate diverticulosis/hemorrhoids/biopsies show adenomatous and hyperplastic polyps/recall 1 years/Colonoscopy/[place] CT ABDOMEN W IV AND W ORAL CONTRAST 01/10/2010 EGD, FLEXIBLE, DIAGNOSTIC 07/22/2014 GE varices oozing blood, gastric polyp/ESOPHAGOGASTRODUODENOSCOPY (EGD), FLEXIBLE, TRANSORAL, DIAGNOSTIC performed by Juaquin Arrington MD at [facility]COPY [facility] EGD, FLEXIBLE, DIAGNOSTIC 07/23/2014 ESOPHAGOGASTRODUODENOSCOPY (EGD), FLEXIBLE, TRANSORAL, DIAGNOSTIC performed by Sophie Merino MD at [facility]COPY [facility] EGD, FLEXIBLE, DIAGNOSTIC 06/02/2019 eso & gastric varices, gastric polyps/ESOPHAGOGASTRODUODENOSCOPY (EGD), FLEXIBLE, TRANSORAL, DIAGNOSTIC performed by Salvador Lopez MD at [facility] EGD, FLEXIBLE, DIAGNOSTIC 03/25/2020 portal hypertensive gastropathy, esophageal varices / INPT [facility] EGD, FLEXIBLE, DIAGNOSTIC 07/19/2020 eso varices, portal hypertensive gastropathy, repeat 3 mo / [facility] EGD, FLEXIBLE, DIAGNOSTIC 10/25/2020 Portal hypertensive gastropathy, eso varices / [facility] EGD, FLEXIBLE, DIAGNOSTIC 08/202222 Grade I esophageal varices / [facility] EGD, FLEXIBLE, DIAGNOSTIC N/A 09/11/2022 grade II esophageal varices/gastric antral vascular ectasia, treated with APC/repeat 3 months/EGD/DE EGD, FLEXIBLE, DIAGNOSTIC N/A 11/07/2022 grade III esophageal varices, banded/gastric antral vascular ectasia/repeat 2 months/EGD/DE EGD, FLEXIBLE, DIAGNOSTIC N/A 02/01/2023 [facility]< egd. / single G2 varix, banded and varices eradicated / no specimens collected / egd in 1 to 2 months / EGD, FLEXIBLE, DIAGNOSTIC N/A 08/09/2023 portal hypertensive gastropathy/repeat 1 year/EGD/MN EGD, FLEXIBLE, DIAGNOSTIC 05/22/2023 GAVE, repeat 4-6 wks / [facility] IR CANCER THERASPHERE EMBOLIZATION 03/28/2022 IR EMBOLIZATION Left 04/18/2021 IMAGING SUPERVISION & INTERPRETATION TRANSCATHETER THERAPY, EMBOLIZATION performed by Kevin Lim DO at OR [facility] IR EMBOLIZATION ARTERIAL NON HEMMORHAGE Left 02/21/2022 EMBOLIZATION ARTERIAL; SUPERVISION & INTERPRETATION performed by Kevin Lim DO at OR [facility] IR EMBOLIZATION ARTERIAL NON HEMMORHAGE Left 06/05/2022 EMBOLIZATION ARTERIAL; SUPERVISION & INTERPRETATION performed by Kevin Lim DO at OR [facility] IR VENOUS TIPS 10/07/2020 REMOVAL OF TONSILS, UNDER AGE 12 age 6-7 Tonsils Removal,<12 Y/O SIGMOIDOSCOPY, DIAGNOSTIC 04/12/2022 radiation proctitis, diverticulosis / [facility] TIPS, REVISION N/A 01/24/2021 REVISION TRANSVENOUS INTRAHEPATIC PORTOSYSTEMIC SHUNT performed by Kevin Lim DO at OR [facility] TIPS, REVISION Right 10/19/2022 REVISION TRANSVENOUS INTRAHEPATIC PORTOSYSTEMIC SHUNT performed by Howie Valdovinos MD at OR [facility] TIPS, REVISION Right 02/20/2023 REVISION TRANSVENOUS INTRAHEPATIC PORTOSYSTEMIC SHUNT performed by Kevin Lim DO at OR [facility] Outpatient Medications Marked as Taking for the 12/26/23 encounter (Office Visit) with Robinson Olson CRNP Medication Sig rifAXIMin 550 MG Oral Tablet (Xifaxan) Take 1 Tablet by mouth in the morning and 1 Tablet before bedtime. Lantus 100 UNIT/ML Subcutaneous Solution Inject 25 Units under the skin every evening. With dinner Allopurinol 100 MG Oral Tablet (Zyloprim) Take 2 Tablets by mouth in the morning. DULoxetine HCl 30 MG Oral Capsule Delayed Release Particles (Cymbalta) Take 1 Capsule by mouth in the morning. Finasteride 5 MG Oral Tablet (Proscar) Take 1 Tablet by mouth in the morning. Pantoprazole Sodium 40 MG Oral Tablet Delayed Release (Protonix) Take 1 Tablet by mouth in the morning and 1 Tablet in the evening. Metoclopramide HCl 5 MG Oral Tablet (Reglan) One tab as often as 3 times a day, if needed for nausea oxygen IN GAS Use 2 L/min(Oxygen) as directed at bedtime. Furosemide 20 MG Oral Tablet (Lasix) Take 2 Tablets by mouth in the morning. FreeStyle Wang 2 Sensor Use as directed. Every 14 days Probiotic (Lactobacillus) Oral Capsule 1 Capsule. High Potency Iron 65 MG Oral Tablet Take by mouth. Multivitamin Men 50+ Oral Tablet Take by mouth. N-Acetyl Cysteine 600 MG Oral Tablet (Acetylcysteine (Nutrient)) Take by mouth. Zinc 50 MG Oral Capsule Take 1 Capsule by mouth in the morning. Mirtazapine 30 MG Oral Tablet (Remeron) Take 1 Tablet by mouth at bedtime. BD Pen Needle Elizabeth 2nd Gen 32G X 4 MM USE DIRECTED TO ADMINISTER INSULIN AT DINNER DAILY OneTouch Verio In Vitro Strip (Glucose Blood) Use to test blood sugars 3 times a day Tylenol 325 MG Oral Capsule (Acetaminophen) Take 650 mg by mouth every 8 hours as needed for Pain (fever). Current Facility-Administered Medications for the 12/26/23 encounter (Office Visit) with Robinson Olson CRNP Medication Albuterol Sulfate (Proventil) (2.5 MG/3ML) 0.083% inhalation solution 2.5 mg Albuterol Sulfate (Proventil) (5 MG/ML) 0.5% *conc* inhalation solution 2.5 mg Review of patient's allergies indicates: No Known Allergies Most Recent Immunizations Administered Date(s) Administered COVID-19 mRNA, LNP-s, No Preserve, 2-Dose Series ([employer]) 03/08/2021 HepA Inact/HepB Recomb>=18yrs old 12/04/2019 PPD 06/18/2017 Pneumococcal Conjugate Vacc, 13 Valent (Prevnar) 05/01/2017 Pneumococcal Polysaccharide PPV23 (Pneumovax) 08/28/2022 Seasonal Influenza Virus Vaccine, Unspecified Formulation 09/15/2021 Seasonal Influenza, PF, 6 M & above, IM , (FluLaval or Fluzone) 09/04/2017 Seasonal Influenza, Quadrivalent Hd (Fluzone Hd) 10/11/2023 Seasonal Influenza, Quadrivalent Hd, 65+ Yrs 09/30/2020 Seasonal Influenza, Quadrivalent, No Preserve, IM 09/01/2019 Seasonal Influenza, Split, IIV3, With Preserve, Inj 09/13/2014 Seasonal Influenza, Trivalent, Adjuvanted, 65+ yrs 09/15/2021 TD - Tetanus/Diptheria (ADULT) 12/19/1999 TDAP (age 10 and older)(Boostrix) 09/28/2022 TDAP (age 11 and older)(Adacel) 02/12/2011 Review of Systems: Physical Exam BP 124/58 | Pulse 54 | Temp 35.6 C (96.1 F) (Tympanic) | Resp 16 | Ht 1.71 m (5' 7.32") | Wt 83.5 kg (184 lb) | SpO2 98% | BMI 28.55 kg/m | BSA 1.99 m Physical Exam Constitutional: Appearance: Normal appearance. HENT: Head: Normocephalic. Cardiovascular: Rate and Rhythm: Regular rhythm. Bradycardia present. Pulmonary: Effort: Pulmonary effort is normal. Breath sounds: Normal breath sounds. Abdominal: General: Bowel sounds are normal. Tenderness: There is no abdominal tenderness. Musculoskeletal: General: Swelling present. Cervical back: Neck supple. Skin: General: Skin is warm. Neurological: Mental Status: He is alert and oriented to person, place, and time. Psychiatric: Mood and Affect: Mood normal. Assessment and Plan 1. Type 2 diabetes mellitus with stage 3a chronic kidney disease, with long-term current use of insulin (HCC) Lantus 25 units 2. Liver cell carcinoma (HCC) F/u hematology Need reschedule with GI 3. History of prostate cancer F/u urology 4. Pre-liver transplant, patient on transplant list 5. Chronic anemia Baseline 7 Most recent 8.8 6. Chronic gout due to renal impairment of multiple sites without tophus On allopurinol Wrap-Up I have advised the patient to call our office with any worsening or new symptoms. I spent a total of 30-39 minutes (exact time 30 mins) on the date of service in preparation, delivery, and documentation of the care provided to Luis Hale excluding any time spent in the performance of separately billed services. Robinson Olson, MSN, [facility] documented in this encounter Plan of Treatment Upcoming Encounters Date Type Department Care Team (Latest Contact Info) Description 12/30/2023 11:00 AM EST Home Visit Care Coordination and Integration [address] [place] [address] Kriss Mays, Community Health Consultant [address] [place] [address] 01/07/2024 8:40 AM EST Laboratory Lab Mobile Phlebotomy [facility] [address] [place] [address] [facility] Mobile Home Draw [address] [facility] [place] [address] 01/21/2024 8:40 AM EST Laboratory Lab Mobile Phlebotomy [facility] [address] [place] [address] [facility] [place] Mobile Home Draw [address] [place] [address] 01/21/2024 10:15 AM EST Cardiac Studies Cardiac Studies, [facility] [address] [facility] [place] [id number] 01/30/2024 2:05 PM EST Hospital Encounter OR [facility], Operating Room, [facility] - 4th Floor [address] [place] [address] Frank Peraza MD [address] [place] [address] [place] [address] 01/30/2024 2:05 PM EST - 01/30/2024 3:07 PM EST Surgery OR [facility], Operating Room, [facility] - 4th Floor [address] [place] [address] Frank Peraza MD [address] [place] [address] CYSTOURETHROSCOPY WITH FULGURATION MEDIUM BLADDER TUMOR 02/04/2024 8:40 AM EST Laboratory Lab Mobile Phlebotomy [facility] [address] [facility] [place] [address] [facility] [place] Mobile Home Draw [address] [place] [address] 02/14/2024 2:45 PM EDT Office Visit Urology Lynnette Fitzpatrick [address] [place] [address] Frank Peraza MD [address] [place] [address] 02/18/2024 8:40 AM EDT Laboratory Lab Mobile Phlebotomy [facility] [address] [place] [address] [facility] [place] Home Draw [address] [place] [address] 03/03/2024 8:40 AM EDT Laboratory Lab Mobile Phlebotomy [facility] [address] [place] [address] [facility] Draw [address] [place] [address] 03/13/2024 2:00 PM EDT Office Visit Dermatology [facility] [address] [facility] [place] [address] Francisco Watson MD [address] [facility] [place] [address] 03/17/2024 8:40 AM EDT Laboratory Lab Mobile Phlebotomy [facility] [address] [place] [address] [facility] [place] Mobile Home Draw [address] [place] [place] [address] 03/24/2024 2:30 PM EDT Office Visit Hematology/Oncology [facility] [address] [facility] [place] [address] Ayaka Tatum CRNP [address] [place] [address] 03/30/2024 12:00 PM EDT Office Visit Family Practice [facility] [address] [facility] [place] [address] Kristen Vences DO [address] [facility] [place] [address] 03/31/2024 8:40 AM EDT Laboratory Lab Mobile Phlebotomy [facility] [address] [place] [address] [facility] Mobile Home Draw [address] [place] [address] 04/07/2024 10:00 AM EDT Office Visit Gastroenterology, [facility] [address] [place] [address] Lamar Tatum CRNP [address] [place] [address] 04/14/2024 8:40 AM EDT Laboratory Lab Mobile Phlebotomy [facility] [address] [place] [address] [facility] Mobile Home Draw [address] [place] [address] 04/28/2024 8:40 AM EDT Laboratory Lab Mobile Phlebotomy [facility] [address] [place] [address] [facility] Mobile Home Draw [address] [place] [address] 05/12/2024 8:40 AM EDT Laboratory Lab Mobile Phlebotomy [facility] [address] [place] [address] [facility] Mobile Home Draw [address] [place] [address] 05/26/2024 8:40 AM EDT Laboratory Lab Mobile Phlebot[facility] [address] [place] [address] [facility] Mobile Home Draw [address] [place] [address] 06/09/2024 8:40 AM EDT Laboratory Lab Mobile Phlebot[facility] [address] [place] [address] [facility] Mobile Home Draw [address], [place] [id number] 06/23/2024 8:40 AM EDT Laboratory Lab Mobile Phlebotomy [facility] [address] [place] [address] [facility], [facility] Mobile Home Draw [address] [place] [address] 07/07/2024 8:40 AM EDT Laboratory Lab Mobile Phlebotomy [facility] [address] [place] [address] [facility] Mobile Home Draw [address] [place] [address] 07/21/2024 8:40 AM EDT Laboratory Lab Mobile Phlebotomy [facility] [address] [place] [address] [facility], [facility] Mobile Home Draw [address] [place] [address] 08/04/2024 8:40 AM EDT Laboratory Lab Mobile Phlebotomy [facility] [address] [place] [address] [facility] [place] Draw [address] [place] [address] 08/18/2024 8:40 AM EDT Laboratory Lab Mobile Phlebotomy [facility] [address] [place] [address] [facility] [place] Draw [address] [place] [address] 08/20/2024 10:15 AM EDT Office Visit Ophthalmology, [facility] [address] [place] [address] Cody [facility] [place] [address] 09/01/2024 8:40 AM EDT Laboratory Lab Mobile Phlebotomy [facility] [address] [place] [address] [facility] [place] Mobile Home Draw [address] [place] [address] 09/15/2024 8:40 AM EDT Laboratory Lab Mobile Phlebotomy [facility] [address] [place] [address] [facility] [place] Mobile Home Draw [address] [place] [address] Scheduled Procedures Name Priority Associated Diagnoses Date/Ti ks CYSTOURETHROSCOPY WITH FULGU RATION MEDIUM BLADDER TUMOR [...] Additional history exists CKD PHOS USE SMARTSET 76845 01/28/202401/03, 07/26/2022, 12/05/2021, Additional history exists Diabetic Foot Exam 03/06/2024 03/06/2023, 0 01/03/2022, 03/02/2021, Additional history exists HbA1c 05/28/2024 11/27/2023, 05/03, 01/28/2023, Additional history exists GFR 06/22/2024 12/23/2023, 11/01, 08/30/2023, Additional history exists Albumin/Creatinine Ratio 07/12/2024 023, 10/01/2022, 09/11/2021, Additional history exists COLONOSCOPY-ANNUAL AGES 18-100 08/09/2024 08/09/2023, 11/07/2022, 11/07/2022, Additional history exists CKD HGB USE SMARTSET 16408 12/26/202412/26, 12/26/2023, 12/23/2023, Additional history exists Lipid [...] this encounter Medical Devices Implanted Type Area Tour Coordinator Device Identifier Shelf Expiration Date Model / Serial / Lot Clareon Iol Aspheric Hydrophobic Acrylic Iol Implanted:Qty: 1 on 04/23/2023 by Cody Gonzalez DO at OR [facility] Lens Left: Eye 11/12/2025 [id number] / [id number] / Viatorr Tips Endoprosthesis 8-10 Mm X 8cm / 2cm Implanted:Qty: 1 on 10/07/2020 by Go Alvarado MD at [facility] Right: Abdomen 03/03/2023 [id number] / / [id number] Description:Viatorr TIPS End oprosthesis 8-10 mm x 8cm / 2cm, Manufactored by [employer] Syr Pf 2ml Embospheres 100-300 - [id number] Implanted:Qty: 1 on 04/18/2021 by Kevin Lim DO at OR [facility] Left: Abdomen [employer] [id number] 11/25/2023 [id number] / / [id number] Syr Pf 2ml Embospheres 100-300 - [id number] Implanted:Qty: 1 on 03/28/2022 at [facility] [employer] [id number] 08/31/2024 [id number] / / [id number] -[id number] Clareon Iol Aspheric Hydrophobic Acrylic Iol Implanted:Qty: 1 on 04/02/2023 by Cody Gonzalez DO at OR [facility] Right: Eye JAZMIN 11/12/2025 [id number] / [id number] / documented as of this encounter Visit Diagnoses Diagnosis Hematuria, gross- Primary Gross hematuria Abnormal cystoscopy Other nonspecific abnormal finding Hospital discharge follow-up- Primary Other follow-up examination Type 2 diabetes mellitus with stage 3a chronic kidney disease, with long-term current use of insulin (HCC) Liver cell carcinoma (HCC) Malignant neoplasm of liver, primary History of prostate cancer Personal history of malignant neoplasm of prostate Pre-liver transplant, patient on transplant list Chronic anemia Anemia, unspecified 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 No Full Code 07/22/2014 9:56 PM 07/24/2014 8:18 PM This order reflects the patients wishes and were consensually agreed upon. Question Answer Comments Discussion of Advance Directives occurred with: Patient Does the patient have a Living Will? No Does the patient have Health Care Power of Dry Talc Racker? No Care Teams Ballistics [facility] Gunsmith Relationship Specialty Start Date End Date Francisco Cisse MD [address] [place] [address] PCP - General Internal Medicine 09/04/21 documented as of this encounter
--- OUTSIDE RECORDS SUMMARY | 2024-01-25 17:11 | External Medical Summary | Summary of Care ---
Author Name Unknown Organization [facility] Address [address] [facility] [place] [address] Phone [phone] Care Team Providers Care Drawer Liner Name Role Phone Francisco Cisse MD Primary Care Provider + Reason for Visit * Reason Comments Hospital Follow-Up NEW PATIENT New pt to get establ ished and also hospital f/u apt was in hospital 12/15/23, has multiple health issues. Encounter Details Date Type Department Care Team (Late st Contact Info) Description 12/26/2023 9:40 AM EST Office Visit Family [facility] [address] [facility] [place] [address] Robinson Olson CRNP [address] [place] [address] Hospital discharge follow-up*; Type 2 diabetes mellitus [...] mRNA, LNP-s, No Pre serve, 2-Dose Series (Salorix) 03/08/2021,02/15/2021 HepA Inact/HepB Recomb>=18yrs old 12/04/2019,04/2019,05/20/2019 11/19/2019 [...] below presenting with hospital follow up. 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, 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 Social Determinants [...] performed by Salvador Lopez MD at ENDOSCOPY [facility], adenomatous polyps repeat colonoscopy in 3 year Closed compression fracture of body of L1 vertebra (HCC) 12/07/2021 Closed T12 spinal fracture ([facility]) 07/12/2023 Diverticulitis of colon fall 2004 DM type 2, goal A1c below 7 07/14/2012 GERD (gastroesophageal reflux disease) Mild mitral regurgitation 03/15/2022 NAFLD (nonalcoholic fatty liver disease) 04/25/2016 Obesity, BMI not known Other psoriasis and similar disorders Pancytopenia (HCC) 05/03/2021 PONV (postoperative nausea and vomiting) Prolonged Q-T interval on ECG 09/11/2021 Prostate cancer ([facility]) 03/02/2021 Pulmonary hypertension ([facility]) 02/01/2023 Past Surgical History: Procedure Laterality Date CATARACT SURGERY,COMPLEX Right 04/02/2023 EXTRACAPSULAR CATARACT REMOVAL COMPLEX WITH IOL performed by Cody Gonzalez DO at [facility] CATARACT SURGERY,COMPLEX Left 04/23/2023 LEFT EXTRACAPSULAR CATARACT REMOVAL COMPLEX WITH IOL performed by Cody Gonzalez DO at OR [facility] COLONOSCOPY 08/27/2005 [place]/hemorrhoids non internal COLONOSCOPY, DIAGNOSTIC (RECTUM) 04/16/2013 COLONOSCOPY FLEXIBLE PROXIMAL DIAGNOSTIC performed by Salvador Lopez MD at ENDOSCOPY [facility], adenomatous polyps repeat colonoscopy in 3 years COLONOSCOPY, DIAGNOSTIC (RECTUM) 05/03/2016 adenomatous polyps, diverticulosis, repeat 5 yrs/COLONOSCOPY FLEXIBLE PROXIMAL DIAGNOSTIC performedby Salvador Lopez MD at ENDOSCOPY [facility] COLONOSCOPY, DIAGNOSTIC (RECTUM) 07/19/2020 adenomatous & hyperplastic polyps, diverticulosis, repeat 3 yrs / [facility] COLONOSCOPY, DIAGNOSTIC (RECTUM) 11/30/2021 mild XRT proctitis, diverticulosis / COLONOSCOPY FLEXIBLE PROXIMAL DIAGNOSTIC performed by Barbara March DO at ENDOSCOPY [facility] COLONOSCOPY, DIAGNOSTIC (RECTUM) 02/01/2022 Mild XRT proctitis / COLONOSCOPY FLEXIBLE PROXIMAL DIAGNOSTIC performed by Barbara March DO at ENDOSCOPY [facility] COLONOSCOPY, DIAGNOSTIC (RECTUM) N/A 11/07/2022 poor prep/diverticulosis sigmoid colon/rectal angioectasias consistent with radiation proctopathy/Colonoscopy/DC COLONOSCOPY, DIAGNOSTIC (RECTUM) N/A 08/09/2023 poor prep/moderate diverticulosis/hemorrhoids/biopsies show adenomatous and hyperplastic polyps/recall 1 years/Colonoscopy/[place] CT ABDOMEN W IV AND W ORAL CONTRAST 01/10/2010 EGD, FLEXIBLE, DIAGNOSTIC 07/22/2014 GE varices oozing blood, gastric polyp/ESOPHAGOGASTRODUODENOSCOPY (EGD), FLEXIBLE, TRANSORAL, DIAGNOSTIC performed by Juaquin Arrington MD at ENDOSCOPY [facility] EGD, FLEXIBLE, DIAGNOSTIC 07/23/2014 ESOPHAGOGASTRODUODENOSCOPY (EGD), FLEXIBLE, TRANSORAL, DIAGNOSTIC performed by Sophie Merino MD at [facility] EGD, FLEXIBLE, DIAGNOSTIC 06/02/2019 eso & gastric varices, gastric polyps/ESOPHAGOGASTRODUODENOSCOPY (EGD), FLEXIBLE, TRANSORAL, DIAGNOSTIC performed by Salvador Lopez MD at ENDOSCOPY [facility] EGD, FLEXIBLE, DIAGNOSTIC 03/25/2020 portal hypertensive gastropathy, esophageal varices / INPT [facility] EGD, FLEXIBLE, DIAGNOSTIC 07/19/2020 eso varices, portal hypertensive gastropathy, repeat 3 mo / [facility] EGD, FLEXIBLE, DIAGNOSTIC 10/25/2020 Portal hypertensive gastropathy, eso varices / [facility] EGD, FLEXIBLE, DIAGNOSTIC 08/202222 Grade I esophageal varices / [facility] EGD, FLEXIBLE, DIAGNOSTIC N/A 09/11/2022 grade II esophageal varices/gastric antral vascular ectasia, treated with APC/repeat 3 months/EGD/DC EGD, FLEXIBLE, DIAGNOSTIC N/A 11/07/2022 grade III esophageal varices, banded/gastric antral vascular ectasia/repeat 2 months/EGD/DC EGD, FLEXIBLE, DIAGNOSTIC N/A 02/01/2023 [facility]< egd. / single G2 varix, banded and varices eradicated / no specimens collected / egd in 1 to 2 months / EGD, FLEXIBLE, DIAGNOSTIC N/A 08/09/2023 portal hypertensive gastropathy/repeat 1 year/EGD/MN EGD, FLEXIBLE, DIAGNOSTIC 05/22/2023 GAVE, repeat 4-6 wks / [facility] IR CANCER THERASPHERE EMBOLIZATION 03/28/2022 IR EMBOLIZATION Left 04/18/2021 IMAGING SUPERVISION & INTERPRETATION TRANSCATHETER THERAPY, EMBOLIZATION performed by Kevin Lim DO at OR [facility] IR EMBOLIZATION ARTERIAL NON HEMMORHAGE Left 02/21/2022 EMBOLIZATION ARTERIAL; SUPERVISION & INTERPRETATION performed by Kevin Lim DO at OR [facility] IR EMBOLIZATION ARTERIAL NON HEMMORHAGE Left 06/05/2022 EMBOLIZATION ARTERIAL; SUPERVISION & INTERPRETATION performed by Kevin Lim DO at OR [facility] IR VENOUS TIPS 10/07/2020 REMOVAL OF TONSILS, UNDER AGE 12 age 6-7 Tonsils Removal,<12 Y/O SIGMOIDOSCOPY, DIAGNOSTIC 04/12/2022 radiation proctitis, diverticulosis / [facility] TIPS, REVISION N/A 01/24/2021 REVISION TRANSVENOUS INTRAHEPATIC PORTOSYSTEMIC SHUNT performed by Kevin Lim DO at OR [facility] TIPS, REVISION Right 10/19/2022 REVISION TRANSVENOUS INTRAHEPATIC PORTOSYSTEMIC SHUNT performed by Howie Valdovinos MD at OR [facility] TIPS, REVISION Right 02/20/2023 REVISION TRANSVENOUS INTRAHEPATIC PORTOSYSTEMIC SHUNT performed by Kevin Lim DO at OR [facility] Outpatient Medications Marked as Taking for the [...] COVID-19 mRNA, LNP-s, No Preserve, 2-Dose Series (Salorix) 03/08/2021 HepA Inact/HepB Recomb>=18yrs old 12/04/2019 PPD [...] separately billed services. Robinson Olson, MSN, JE[facility] documented in this encounter Plan of Treatment Upcoming Encounters Date Type Department Care Team (Latest Contact Info) Description 12/30/2023 11:00 AM EST Home Visit Care Coordination and Integration [address] [place] [address] Kriss Mays, [facility] [employer]enow Administrator Developer [address] [place] [address] 01/07/2024 8:40 AM EST Laboratory Lab Mobile [facility] [address] [place] [address] [facility] Mobile Home Draw [address] [place] [facility] [place] [address] 01/21/2024 8:40 AM EST Laboratory Lab [facility] [address] [place] [address] [facility] Mobile Home Draw [address] [place] [address] 01/21/2024 10:15 AM EST Cardiac Studies Cardiac Studies, [facility] [address] [facility] [place] [id number] 01/30/2024 2:05 PM EST Hospital Encounter [facility], Operating Room, [facility] - 4th Floor [address] [place] [address] Frank Peraza MD [address] [place] [address] [place] [address] 01/30/2024 2:05 PM EST - 01/30/2024 3:07 PM EST Surgery [facility], Operating Room, [facility] - 4th Floor [address] [place] [address] Frank Peraza MD [address] [place] [address] CYSTOURETHROSCOPY WITH FULGURATION MEDIUM BLADDER TUMOR 02/04/2024 8:40 AM EST Laboratory Lab Mobile [facility] [address] [place] [facility] [place] [address] [facility] Mobile Home Draw [address] [place] [address] 02/14/2024 2:45 PM EDT Office Visit Urology Lynnette Fitzpatrick [address] [place] [address] Frank Peraza MD [address] [place] [address] 02/18/2024 8:40 AM EDT Laboratory Lab Mobile Ph[facility]bot[facility] [address] [place] [address] [facility] Mobile Home Draw [address] [place] [address] 03/03/2024 8:40 AM EDT Laboratory Lab Mobile Ph[facility] [address] [place] [address] [facility] Draw [address] [place] [address] 03/13/2024 2:00 PM EDT Office Visit Dermatology [facility] [address] [facility] [place] [address] Francisco Watson MD [address] [facility] [place] [address] 03/17/2024 8:40 AM EDT Laboratory Lab Mobile Ph[facility]bot[facility] [address] [place] [address] [facility] Mobile Home Draw [address] [place] [address] 03/24/2024 2:30 PM EDT Office Visit Hematology/Oncology [facility] [address] [facility] [place] [address] Ayaka Tatum CRNP [address] [place] [address] 03/30/2024 12:00 PM EDT Office Visit Family Practice [facility] [address] [facility] [place] [address] Kristen Vences DO [address] [facility] [place] [address] 03/31/2024 8:40 AM EDT Laboratory Lab Mobile Ph[facility] [address] [place] [address] [facility] Mobile Home Draw [address] [place] [address] 04/07/2024 10:00 AM EDT Office Visit Gastroenterology, [facility] [address] [place] [address] Lamar Tatum CRNP [address] [place] [address] 04/14/2024 8:40 AM EDT Laboratory Lab Mobile Phle[facility] [address] [place] [address] [facility] Mobile Home Draw [address] [place] [address] 04/28/2024 8:40 AM EDT Laboratory Lab Mobile Phle[facility] [address] [place] [address] [facility] Mobile Home Draw [address] [place] [address] 05/12/2024 8:40 AM EDT Laboratory Lab Mobile Phle[facility] [address] [place] [address] [facility] Mobile Home Draw [address] [place] [address] 05/26/2024 8:40 AM EDT Laboratory Lab Mobile Phle[facility] [address] [place] [address] [facility] Mobile Home Draw [address] [place] [address] 06/09/2024 8:40 AM EDT Laboratory Lab Mobile Phle[facility] [address] [place] [address] [facility] Mobile Home Draw [address], [place] [address] 06/23/2024 8:40 AM EDT Laboratory Lab Mobile [facility] [address] [place] [address] [facility], [facility] Mobile Home Draw [address] [place] [address] 07/07/2024 8:40 AM EDT Laboratory Lab Mobile [facility] [address] [place] [address] [facility] Mobile Home Draw [address] [place] [address] 07/21/2024 8:40 AM EDT Laboratory Lab Mobile Ph[facility] [address] [place] [address] [facility], [facility] Mobile Home Draw [address] [place] [address] 08/04/2024 8:40 AM EDT Laboratory Lab Mobile Ph[facility]bot[facility] [address] [place] [address] [facility] Draw [address] [place] [address] 08/18/2024 8:40 AM EDT Laboratory Lab Mobile [facility] [address] [place] [address] [facility] Draw [address] [place] [address] 08/20/2024 10:15 AM EDT Office Visit Ophthalmology, [facility] [address] [place] [address] Cody Gonzalez DO [facility] [place] [address] 09/01/2024 8:40 AM EDT Laboratory Lab Mobile Ph[facility] [address] [place] [address] [facility] Mobile Home Draw [address] [place] [address] 09/15/2024 8:40 AM EDT Laboratory Lab Mobile Ph[facility] [address] [place] [address] [facility] Mobile Home Draw [address] [place] [address] Scheduled Procedures Name Priority Associated Diagnoses Date/Ti md CYSTOURETHROSCOPY WITH FULGU RATION MEDIUM BLADDER TUMOR [...] Additional history exists CKD PHOS USE SMARTSET 04529 01/28/202401/03, 07/26/2022, 12/05/2021, Additional history exists Diabetic Foot Exam 03/06/2024 03/06/2023, 0 01/03/2022, 03/02/2021, Additional history exists HbA1c 05/28/2024 11/27/2023, 05/03, 01/28/2023, Additional history exists GFR 06/22/2024 12/23/2023, 11/01, 08/30/2023, Additional history exists Albumin/Creatinine Ratio 07/12/2024 023, 10/01/2022, 09/11/2021, Additional history exists COLONOSCOPY-ANNUAL AGES 18-100 08/09/2024 08/09/2023, 11/07/2022, 11/07/2022, Additional history exists CKD HGB USE SMARTSET 59075 12/26/202412/26, 12/26/2023, 12/23/2023, Additional history exists Lipid [...] this encounter Medical Devices Implanted Type Area Mail Processor Device Identifier Shelf Expiration Date Model / Serial / Lot [place] Iol Aspheric Hydrophobic Acrylic Iol Implanted:Qty: 1 on 04/23/2023 by Cody Gonzalez DO at [facility] Lens Left: Eye 11/12/2025 [id number] / [id number] / Viatorr Tips Endoprosthesis 8-10 Mm X 8cm / 2cm Implanted:Qty: 1 on 10/07/2020 by Go Alvarado MD at [facility] Right: Abdomen 03/03/2023 [id number] / / [id number] Description:Viatorr TIPS End oprosthesis 8-10 mm x 8cm / 2cm, Manufactored by [employer] Syr Pf 2ml Embospheres 100-300 - [id number] Implanted:Qty: 1 on 04/18/2021 by Kevin Lim DO at [facility] Left: Abdomen [employer] [id number] 11/25/2023 [id number] / / [id number] Syr Pf 2ml Embospheres 100-300 - [id number] Implanted:Qty: 1 on 03/28/2022 at [facility] [employer] [id number] 08/31/2024 S220GH / / [id number] [place] Iol Aspheric Hydrophobic Acrylic Iol Implanted:Qty: 1 on 04/02/2023 by Cody Gonzalez DO at [facility] Right: Eye JAZMIN 11/12/2025 [id number] / [id number] / documented as of this encounter [...] Documents on File Type Date Recorded Patient Card Stripper Expl anation Advance Directives and Living Will 12/11/2022 ADVANCE DIRECTIVE / LIVING WILL LIVING WILL Power of Pump Tester 12/11/2022 POWER OF A TTORNEY Latest Code [...] the patient have Health Care Power of Pump Tester? No Full Code 07/22/2014 9:56 PM 07/24/2014 8:18 PM This order reflects the patients wishes and were consensually agreed upon. Question Answer Comments Discussion of Advance Directives occurred with: Patient Does the patient have a Living Will? No Does the patient have Health Care Power of Pump Tester? No Care Teams Drawer Liner Relationship Specialty Start Date End Date Francisco Cisse MD [address] [place] [address] PCP - General Internal Medicine 09/04/21 documented as of this encounter
--- OUTSIDE RECORDS SUMMARY | 2024-01-25 17:11 | External Medical Summary | Summary of Care ---
Author Name Unknown Organization [facility] Address [address] [place] [address] Phone [phone] Care Team Providers Care Home Weatherizing Worker Name Role Phone Francisco Cisse MD Primary Care Provider + Reason for Visit * Reason Onset Date Comments Test Results Lab 12/27/2023 Encounter Details Date Type Department Care Team (Late st Contact Info) Description 12/27/2023 Telephone Hematology/Oncology Treatment, [facility] [address] [place] [address] Harmeet Tompkins MD 200 [facility] [place] [address] Test Results Lab Allergies No known active allergiesdocumented as of [...] mRNA, LNP-s, No Pre serve, 2-Dose Series (Jini) 03/08/2021,02/15/2021 HepA Inact/HepB Recomb>=18yrs old 12/04/2019,04/2019,05/20/2019 11/19/2019 [...] encounter Miscellaneous Notes * Telephone Encounter - Dalia Marshall RN - 12/27/2023 8:47 AM EST Spoke with patient directly. Aware Dr. Tompkins reviewed results and notes his blood work to be stableat this time. Aware he should continue his biweekly blood draws. Verbalized understanding. * Telephone Encounter - Dalia Marshall RN - 12/27/2023 8:46 AM EST ----- Message from Harmeet Tompkins MD sent at 12/27/2023 6:35 AM EST ----- Blood workup done on 12/26/2023: - WBC 3200, H&H of 8.8/28.2, MCV 101.8, platelet count of 84,000 Overall stable pancytopenia. He gets blood workup every 2 weekly. 6 documented in this encounter Plan of Treatment Upcoming Encounters Date Type Department Care Team (Latest Contact Info) Description 12/30/2023 11:00 AM EST Home Visit Care Coordination and Integration [address] [facility] [place] [address] [facility] Indirect Sales Representative [address] [place] [address] 01/07/2024 8:40 AM EST Laboratory Lab Mobile Phlebotomy [facility] [address] [facility] [place] [address] [facility] Mobile Home Draw [address] [facility] [place] [address] 01/21/2024 8:40 AM EST Laboratory Lab Mobile Phlebotomy [facility] [address] [facility] [place] [address] [facility], [facility] Mobile Home Draw [address] [place] [address] 01/21/2024 10:15 AM EST Cardiac Studies Cardiac Studies, [facility] 132 [facility] [place] [address] 01/30/2024 2:05 PM EST Hospital Encounter [facility], Operating Room, [facility] - 4th Floor 400 [facility] [address] Frank Peraza MD [address] [place] [address] [place] [address] 01/30/2024 2:05 PM EST - 01/30/2024 3:07 PM EST Surgery [facility], Operating Room, [facility] - 4th Floor [address] [place] [address] Frank Peraza MD [address] [place] [address] [place] [address] CYSTOURETHROSCOPY WITH FULGURATION MEDIUM BLADDER TUMOR 02/04/2024 8:40 AM EST Laboratory Lab Mobile Phlebotomy [facility] [address] [facility] [place] [address] [facility] Mobile Home Draw [address] [place] [address] 02/14/2024 2:45 PM EDT Office Visit UrologLynnette Solares [address] [place] [address] [place] [address] Frank Peraza MD [address] [place] [address] [place] [address] 02/18/2024 8:40 AM EDT Laboratory Lab Mobile Phlebotomy [facility] [address] [place] [address] [facility] Mobile Home Draw [address] [place] [address] 03/03/2024 8:40 AM EDT Laboratory Lab Mobile Phlebotomy [facility] [address] [place] [address] [facility] Mobile Home Draw [address] [place] [address] 03/13/2024 2:00 PM EDT Office Visit Dermatology [facility] 200 [facility] [place] [address] Francisco Watson MD 200 [place] [address] 03/17/2024 8:40 AM EDT Laboratory Lab Mobile Phlebotomy [facility] [address] [place] [address] [facility] Mobile Home Draw [address] [place] [address] 03/24/2024 2:30 PM EDT Office Visit Hematology/Oncology [facility] 200 [facility] [place] [address] Ayaka Tatum CRNP 400 [place] [address] 03/30/2024 12:00 PM EDT Office Visit Family Practice [facility] [address] [facility] [address] Kristen Vences, [address] [place] [address] 03/31/2024 8:40 AM EDT Laboratory Lab Mobile Phlebotomy [facility] [address] [place] [address] [facility] Mobile Home Draw [address] [place] [address] 04/07/2024 10:00 AM EDT Office Visit Gastroenterology, [facility] [address] [place] [address] Lamar Tatum CRNP [address] [place] [address] 04/14/2024 8:40 AM EDT Laboratory Lab Mobile Phlebotomy [facility] [address] [place] [address] [facility] Mobile Home Draw [address] [place] [address] 04/28/2024 8:40 AM EDT Laboratory Lab Mobile Phlebotomy [facility] [address] [place] [address] [facility] Mobile Home Draw [address] [place] [address] 05/12/2024 8:40 AM EDT Laboratory Lab Mobile Phlebotomy [facility] [address] [place] [address] [facility] Mobile Home Draw [address] [place] [address] 05/26/2024 8:40 AM EDT Laboratory Lab Mobile Phlebotomy [facility] [address] [place] [address] [facility] Mobile Home Draw [address] [place] [address] 06/09/2024 8:40 AM EDT Laboratory Lab Mobile Phlebotomy [facility] [address] [place] [address] [facility] Mobile Home Draw [address] [place] [address] 06/23/2024 8:40 AM EDT Laboratory Lab Mobile Phlebotomy [facility] [address] [place] [address] [facility] Mobile Home Draw [address] [place] [address] 07/07/2024 8:40 AM EDT Laboratory Lab Mobile Phlebotomy [facility] [address] [place] [address] [facility] Mobile Home Draw [address] [place] [address] 07/21/2024 8:40 AM EDT Laboratory Lab Mobile Phlebotomy [facility] [address] [place] [address] [facility], [facility] Mobile Home Draw [address] [place] [address] 08/04/2024 8:40 AM EDT Laboratory Lab Mobile Phlebotomy [facility] [address] [place] [address] [facility], [facility] Mobile Home Draw [address] [place] [address] 08/18/2024 8:40 AM EDT Laboratory Lab Mobile Phlebotomy [facility] [address] [place] [address] [facility] Mobile Home Draw [address] [place] [address] 08/20/2024 10:15 AM EDT Office Visit Ophthalmology, [facility] 132 [facility] [place] [address] Cody Gonzalez DO [facility] [address] 09/01/2024 8:40 AM EDT Laboratory Lab Mobile Phlebotomy [facility] [address] [place] [address] [facility], [facility] Mobile Home Draw [address] [place] [address] 09/15/2024 8:40 AM EDT Laboratory Lab Mobile Phlebotomy [facility] [address] [place] [address] [facility] Mobile Home Draw [address] [place] [address] Scheduled Procedures Name Priority Associated Diagnoses Date/Ti ca CYSTOURETHROSCOPY WITH FULGU RATION MEDIUM BLADDER TUMOR [...] Additional history exists CKD PHOS USE SMARTSET 99210 01/28/202401/03, 07/26/2022, 12/05/2021, Additional history exists Diabetic Foot Exam 03/06/2024 03/06/2023, 0 01/03/2022, 03/02/2021, Additional history exists HbA1c 05/28/2024 11/27/2023, 05/03, 01/28/2023, Additional history exists GFR 06/22/2024 12/23/2023, 11/01, 08/30/2023, Additional history exists Albumin/Creatinine Ratio 07/12/2024 023, 10/01/2022, 09/11/2021, Additional history exists COLONOSCOPY-ANNUAL AGES 18-100 08/09/2024 08/09/2023, 11/07/2022, 11/07/2022, Additional history exists CKD HGB USE SMARTSET 70049 12/26/202412/26, 12/26/2023, 12/23/2023, Additional history exists Lipid [...] this encounter Medical Devices Implanted Type Area Neuroscientist Device Identifier Shelf Expiration Date Model / Serial / Lot Clareon Iol Aspheric Hydrophobic Acrylic Iol Implanted:Qty: 1 on 04/23/2023 by Cody Gonzalez DO at [facility] Lens Left: Eye 11/12/2025 [id number] / [id number] / Viatorr Tips Endoprosthesis 8-10 Mm X 8cm / 2cm Implanted:Qty: 1 on 10/07/2020 by Go Alvarado MD at [facility] Right: Abdomen 03/03/2023 [id number] / / [id number] Description:Viatorr TIPS End oprosthesis 8-10 mm x 8cm / 2cm, Manufactored by [employer] Syr Pf 2ml Embospheres 100-300 - [id number] Implanted:Qty: 1 on 04/18/2021 by Kevin Lim DO at [facility] Left: Abdomen [employer] [id number] 11/25/2023 S220GH / / [id number] Syr Pf 2ml Embospheres 100-300 - [id number] Implanted:Qty: 1 on 03/28/2022 at [facility] [employer] [id number] 08/31/2024 S220GH / / [id number] Clareon Iol Aspheric Hydrophobic Acrylic Iol Implanted:Qty: 1 on 04/02/2023 by Cody Gonzalez DO at [facility] Right: Eye JAZMIN 11/12/2025 CNA0T0 / [id number] / documented as of this encounter Advance Directives Documents on File Type Date Recorded Patient Cigar Tobacco Processing Supervisor Expl anation Advance Directives and Living Will 12/11/2022 ADVANCE DIRECTIVE / LIVING WILL LIVING WILL Power of Warehousing Technician 12/11/2022 POWER OF A TTORNEY Latest [...] the patient have Health Care Power of Warehousing Technician? No Full Code 07/22/2014 9:56 PM 07/24/2014 8:18 PM This order reflects the patients wishes and were consensually agreed upon. Question Answer Comments Discussion of Advance Directives occurred with: Patient Does the patient have a Living Will? No Does the patient have Health Care Power of Warehousing Technician? No Care Teams Home Weatherizing Worker Relationship Specialty Start Date End Date Francisco Cisse MD [address] [place] [address] PCP - General Internal Medicine 09/04/21 documented as of this encounter
--- OUTSIDE RECORDS SUMMARY | 2024-01-25 17:11 | External Medical Summary | Summary of Care ---
Author Name Unknown Organization [facility] Address [address] [place] [address] Phone [phone] Care Team Providers Care Deicer Element Winder Machine Name Role Phone Francisco Cisse MD Primary Care Provider + Encounter Details Date Type Department Care Team (Late st Contact Info) Description 01/01/2024 [facility] [address] [place] [address] Jocelyne Sykes, RN Allergies No known active allergiesdocumented as of this encounter (statuses as of 01/01/2024) Medications Medication Sig Dispensed Refills Start Date End Date Status Tylenol 325 MG Oral Capsule (Acetaminophen) Take 650 mg by mouth every 8 hours as needed for Pain (fever). 0 Active OneTouch Verio In Vitro Strip (Glucose Blood)Indications:Ty pe 2 diabetes mellitus with hemoglobin A1c goal of less than 7.0% ([facility]) Use to test blood [...] as of this encounter (statuses as of 01/01/2024) Active Problems Problem Noted Date Diagnosed Date [...] as of this encounter (statuses as of 01/01/2024) Resolved Problems Problem Noted Date Diagnosed Date [...] as of this encounter (statuses as of 01/01/2024) Immunizations Name Administration Dates Next Due COVID-19 mRNA, LNP-s, No Pre serve, 2-Dose Series (EduKart) 03/08/2021,02/15/2021 HepA Inact/HepB Recomb>=18yrs old 12/04/2019,04/2019,05/20/2019 11/19/2019 PPD 06/18/2017, 3,01/09/2012,06/2011 Pneumococcal Conjugate Vacc, 13 Valent (Prevnar) 05/01/2017 Pneumococcal Polysaccharide PPV23 (Pneumovax) 08/28/2022,10/25/2015,07/14/2012 Season Influenza, Quad, PF, Adjuvanted, 65+ Yrs, IM (FLUAD) 10/07/2020(Deferred: Patient Refused - pt says he already had his shot last [facility] at [facility] Handy Lyons and Mckinley Cobian [...] Progress Notes * Jocelyne Sykes, RN - 01/01/2024 8:31 AM EST 3rd HCC extension request submitted, . Candidate met the requirements for a standard exception and is eligible to receive a policy assigned score without [place] Liver Review BoardReview, extension granted. The next extension will be due on 04/03/2024. MRI of the Liver completed on 12/13/23 documented in this encounter Plan of Treatment Upcoming Encounters Date Type Department Care Team (Latest Contact Info) Description 01/07/2024 8:40 AM EST Laboratory Lab Mobile Phlebotomy [facility] [address] [place] [address] [facility], [facility] Mobile Home Draw [address] [place] [address] 01/21/2024 8:40 AM EST Laboratory Lab Mobile Phlebotomy [facility] [address] [place] [address] [facility], [facility] Mobile Home Draw [address] [place] [address] 01/21/2024 10:15 AM EST Cardiac Studies Cardiac Studies, [facility] [address] [place] [facility] [address] 01/30/2024 2:05 PM EST Hospital Encounter [facility], Operating Room, [facility] - 4th Floor 400 [facility] [place] [address] Frank Peraza MD [address] [address] [place] [address] 01/30/2024 2:05 PM EST - 01/30/2024 3:07 PM EST Surgery [facility], Operating Room, [facility] - 4th Floor [address] [place] [address] Frank Peraza MD [address] [place] [address] CYSTOURETHROSCOPY WITH FULGURATION MEDIUM BLADDER TUMOR 02/04/2024 8:40 AM EST Laboratory Lab Mobile Phlebotomy C [address] [place] [address] [facility], [facility] Mobile Home Draw [address] [place] [address] 02/14/2024 2:45 PM EDT Office Visit Urology Lynnette Fitzpatrick [address] [place] [address] Frank Peraza MD [address] [place] [address] 02/18/2024 8:40 AM EDT Laboratory Lab Mobile Phlebotomy [facility] [address] [place] [address] [facility], [facility] Mobile Home Draw [address] [place] [address] 03/03/2024 8:40 AM EDT Laboratory Lab Mobile Phlebotomy [facility] [address] [place] [address] [facility], [facility] Mobile Home Draw [address] [place] [address] 03/13/2024 2:00 PM EDT Office Visit Dermatology [facility] [place] 200 [facility] [place], [place] [address] Francisco Watson MD 200 [facility] [place] [address] 03/17/2024 8:40 AM EDT Laboratory Lab Mobile Phlebotomy [facility] [address] [place] [address] [facility], [facility] Mobile Home Draw [address] [place] [address] 03/24/2024 2:30 PM EDT Office Visit Hematology/Oncolo gy [facility] Pattie [place] [address] [place] [address] Ayaka Tatum CRNP [address] [place] [address] 03/30/2024 12:00 PM EDT Office Visit Family Practice [facility] [address] [place] [address] Kristen Vences DO [address] [place] [address] 03/31/2024 8:40 AM EDT Laboratory Lab Mobile Phlebotomy [facility] [address] [place] [address] [facility], [facility] Mobile Home Draw [address] [place] [address] 04/07/2024 10:00 AM EDT Office Visit Gastroenterology, [facility] [address] [place] [address] Lamar Tatum CRNP [address] [place] [address] 04/14/2024 8:40 AM EDT Laboratory Lab Mobile Phlebotomy [facility] [address] [place] [address] [facility], [facility] Mobile Home Draw [address] [place] [address] 04/28/2024 8:40 AM EDT Laboratory Lab Mobile Phlebotomy [facility] [address] [place] [address] [facility], [facility] Mobile Home Draw [address] [place] [address] 05/12/2024 8:40 AM EDT Laboratory Lab Mobile Phlebotomy [facility] [address] [place] [address] [facility], [facility] Mobile Home Draw [address] [place] [address] 05/26/2024 8:40 AM EDT Laboratory Lab Mobile Phlebotomy [facility] [address] [place] [address] [facility], [facility] Mobile Home Draw [address] [place] [address] 06/09/2024 8:40 AM EDT Laboratory Lab Mobile Phlebotomy [facility] [address] [place] [address] [facility], [facility] Mobile Home Draw [address] [place] [address] 06/23/2024 8:40 AM EDT Laboratory Lab Mobile Phlebotomy [facility] [address] [place] [address] [facility], [facility] Mobile Home Draw [address] [place] [address] 07/07/2024 8:40 AM EDT Laboratory Lab Mobile Phlebotomy [facility] [address] [place] [address] [facility], [facility] Mobile Home Draw [address] [place] [address] 07/21/2024 8:40 AM EDT Laboratory Lab Mobile Phlebotomy [facility] [address] [place] [address] [facility], [facility] Mobile Home Draw [address] [place] [address] 08/04/2024 8:40 AM EDT Laboratory Lab Mobile Phlebotomy [facility] [address] [place] [address] [facility], [facility] Mobile Home Draw [address] [place] [address] 08/18/2024 8:40 AM EDT Laboratory Lab Mobile Phlebotomy [facility] [address] [place] [address] [facility], [facility] Mobile Home Draw [address] [place] [address] 08/20/2024 10:15 AM EDT Office Visit Ophthalmology, [facility] [address] [place] [address] Cody Gonzalez DO [address] [place] [address] 09/01/2024 8:40 AM EDT Laboratory Lab Mobile Phlebotomy [facility] [address] [place] [address] [facility], [facility] Mobile Home Draw [address] [place] [address] 09/15/2024 8:40 AM EDT Laboratory Lab Mobile Phlebotomy [facility] [address] [place] [address] [facility], [facility] Mobile Home Draw [address] [place] [address] Scheduled Procedures Name Priority Associated Diagnoses Date/Ti [...] Additional history exists CKD PHOS USE SMARTSET 76889 01/28/202401/03, 07/26/2022, 12/05/2021, Additional history exists Diabetic Foot Exam 03/06/2024 03/06/2023, 0 01/03/2022, 03/02/2021, Additional history exists HbA1c 05/28/2024 11/27/2023, 05/03, 01/28/2023, Additional history exists GFR 06/22/2024 12/23/2023, 11/01, 08/30/2023, Additional history exists Albumin/Creatinine Ratio 07/12/2024 023, 10/01/2022, 09/11/2021, Additional history exists COLONOSCOPY-ANNUAL AGES 18-100 08/09/2024 08/09/2023, 11/07/2022, 11/07/2022, Additional history exists CKD HGB USE SMARTSET 13839 12/26/202412/26, 12/26/2023, 12/23/2023, Additional history exists Lipid [...] this encounter Medical Devices Implanted Type Area International Account Executive Device Identifier Shelf Expiration Date Model / Serial / Lot Clareon Iol Aspheric Hydrophobic Acrylic Iol Implanted:Qty: 1 on 04/23/2023 by Cody Gonzalez DO at [facility] Lens Left: Eye 11/12/2025 CNA0T0 / [id number] / Viatorr Tips Endoprosthesis 8-10 Mm X 8cm / 2cm Implanted:Qty: 1 on 10/07/2020 by Go Alvarado MD at [facility] Right: Abdomen 03/03/2023 [id number] / / [id number] Description:Viatorr TIPS End oprosthesis 8-10 mm x 8cm / 2cm, Manufactored by [employer] Syr Pf 2ml Embospheres 100-300 - [id number] Implanted:Qty: 1 on 04/18/2021 by Kevin Lim DO at [facility] Left: Abdomen [employer] [id number] 11/25/2023 S220GH / / [id number] Syr Pf 2ml Embospheres 100-300 - [id number] Implanted:Qty: 1 on 03/28/2022 at [facility] [employer] [id number] 08/31/2024 S220GH / / [id number] Clareon Iol Aspheric Hydrophobic Acrylic Iol Implanted:Qty: 1 on 04/02/2023 by Cody Gonzalez DO at [facility] Right: Eye JAZMIN 11/12/2025 CNA0T0 / [id number] / documented as of this encounter Advance Directives Documents on File Type Date Recorded Patient Insurance Associate Expl anation Advance Directives and Living Will 12/11/2022 ADVANCE DIRECTIVE / LIVING WILL LIVING WILL Power of Journeyman Plumber 12/11/2022 POWER OF A TTORNEY Latest Code [...] the patient have Health Care Power of Journeyman Plumber? No Full Code 07/22/2014 9:56 PM 07/24/2014 8:18 PM This order reflects the patients wishes and were consensually agreed upon. Question Answer Comments Discussion of Advance Directives occurred with: Patient Does the patient have a Living Will? No Does the patient have Health Care Power of Journeyman Plumber? No Care Teams Deicer Element Winder Machine Relationship Specialty Start Date End Date Francisco Cisse MD [address] [place] [address] PCP - General Internal Medicine 09/04/21 documented as of this encounter
--- OUTSIDE RECORDS SUMMARY | 2024-01-25 17:11 | External Medical Summary | Summary of Care ---
Author Name Unknown Organization [facility] Address [address] [place] [address] Phone [phone] Care Team Providers Care Night Stocker Name Role Phone Francisco Cisse MD Primary Care Provider + Encounter Details Date Type Department Care Team (Late st Contact Info) Description 12/30/2023 11:00 AM EST Home Visit Care Coordination and Integration [address] [place], [place] [id number] Kriss Mays, Community Health Repairer [employer] [address] [place] [address] Allergies No known active allergiesdocumented as of this encounter (statuses as of 12/30/2023) Medications Medication Sig Dispensed Refills Start Date [...] as of this encounter (statuses as of 12/30/2023) Active Problems Problem Noted Date Diagnosed Date [...] as of this encounter (statuses as of 12/30/2023) Resolved Problems Problem Noted Date Diagnosed Date [...] as of this encounter (statuses as of 12/30/2023) Immunizations Name Administration Dates Next Due COVID-19 mRNA, LNP-s, No Pre serve, 2-Dose Series (TargAnox) 03/08/2021,02/15/2021 HepA Inact/HepB Recomb>=18yrs old 12/04/2019,04/2019,05/20/2019 11/19/2019 [...] Sign Reading Time Taken Comments Blood Pressure 150/70 12/30/2023 11:21 AM EST Pulse 68 12/30/2023 11:21 AM EST Temperature 37.1 C (98.8 F) 12/30/2023 11:[address] Respiratory Rate - - Oxygen Saturation 97% 12/30/2023 11:21 AM EST Inhaled Oxygen Concentration - - Weight 83.9 kg (185 lb) 12/30/2023 11:21 AM EST Height - - Body Mass Index 28.7 12/26/2023 9:26 AM EST documented in this [...] of this encounter Progress Notes * Kriss Mays, Community Health Repairer [employer] - 12/30/2023 11:42 AM EST Telemedicine visit: No Community Health Repairer [employer] (CANDY) documentation: CANDY went out to patients home and completed vitals and did a bottles out medication review. Patientis not taking Remeron and the Cymbalta and did not have these medication present in home. Continuesto use his O2 only at night. BP was higher than normal so CANDY re-checked- got same reading. CANDY sent TT to KARI beavers in regards to med review and BP. Kriss Mays- CANDY Support Services/[employer] [facility] [employer] [facility] [employer] [email or web address] Electronically signed by Kriss Mays Community Health Repairer [employer] at 12/30/2023 12:11 PM EST documented in this encounter Plan of Treatment Upcoming Encounters Date Type Department Care Team (Latest Contact Info) Description 01/07/2024 8:40 AM EST Laboratory Lab Mobile Phlebotomy [facility] [address] [place], [place] [id number] [facility], [facility] Mobile Home Draw [address] [place] [facility] [place] [address] 01/21/2024 8:40 AM EST Laboratory Lab Mobile Phlebotomy [facility] [address] [facility] [address] [facility], [facility] Mobile Home Draw [address] [place] [address] 01/21/2024 10:15 AM EST Cardiac Studies Cardiac Studies, [address] [place] [address] 01/30/2024 2:05 PM EST Hospital Encounter OR [facility], Operating Room, [facility] - 4th Floor [address] [place] [address] Frank Peraza MD [address] [place] [address] [place] [address] 01/30/2024 2:05 PM EST - 01/30/2024 3:07 PM EST Surgery OR [facility], Operating Room, [facility] - 4th Floor [address] [place] [address] Frank Peraza MD [address] [place] [address] [place] [address] CYSTOURETHROSCOPY WITH FULGURATION MEDIUM BLADDER TUMOR 02/04/2024 8:40 AM EST Laboratory Lab Mobile Phlebotomy [facility] [address] [facility] [address] [facility] Mobile Home Draw [address] [place] [address] 02/14/2024 2:45 PM EDT Office Visit Urology Lynnette Fitzpatrick [address] [place] [address] Frank Peraza MD [address] [place] [address] [place] [address] 02/18/2024 8:40 AM EDT Laboratory Lab Mobile Phlebotomy [facility] [address] [place] [address] [facility], [facility] Mobile Home Draw [address] [place] [address] 03/03/2024 8:40 AM EDT Laboratory Lab Mobile Phlebotomy [facility] [address] [place] [address] [facility], [facility] Mobile Home Draw [address] [place] [address] 03/13/2024 2:00 PM EDT Office Visit Dermatology [facility] [address] [facility] [place] [address] Francisco Watson MD [address] [facility] [place] [address] 03/17/2024 8:40 AM EDT Laboratory Lab Mobile Phlebotomy [facility] [address] [place] [address] [facility], [facility] Mobile Home Draw [address] [place] [address] 03/24/2024 2:30 PM EDT Office Visit Hematology/Oncolo gy [facility] [address] [facility] [place] [address] Ayaka Tatum CRNP [address] [place] [address] 03/30/2024 12:00 PM EDT Office Visit Family Practice [facility] [address] [place] [address] Kristen Vences DO [facility] [address] 03/31/2024 8:40 AM EDT Laboratory Lab Mobile Phlebotomy [facility] [address] [place] [address] [facility], [facility] Mobile Home Draw [address] [place] [address] 04/07/2024 10:00 AM EDT Office Visit Gastroenterology, [facility] [address] [place] [address] Lamar Tatum CRNP [address] [place] [address] 04/14/2024 8:40 AM EDT Laboratory Lab Mobile Phlebotomy [facility] [address] [place] [address] [facility], [facility] Mobile Home Draw [address] [place] [address] 04/28/2024 8:40 AM EDT Laboratory Lab Mobile Phlebotomy [facility] [address] [place] [address] [facility], [facility] Mobile Home Draw [address] [place] [address] 05/12/2024 8:40 AM EDT Laboratory Lab Mobile Phlebotomy [facility] [address] [place] [address] [facility], [facility] Mobile Home Draw [address] [place] [address] 05/26/2024 8:40 AM EDT Laboratory Lab Mobile Phlebotomy [facility] [address] [place] [address] [facility], [facility] Mobile Home Draw [address] [place] [address] 06/09/2024 8:40 AM EDT Laboratory Lab Mobile Phlebotomy [facility] [address] [place] [address] [facility], [facility] Mobile Home Draw [address] [place] [address] 06/23/2024 8:40 AM EDT Laboratory Lab Mobile Phlebotomy [facility] [address] [place] [address] [facility], [facility] Mobile Home Draw [address] [place] [address] 07/07/2024 8:40 AM EDT Laboratory Lab Mobile Phlebotomy [facility] [address] [place] [address] [facility], [facility] Mobile Home Draw [address] [place] [address] 07/21/2024 8:40 AM EDT Laboratory Lab Mobile Phlebotomy [facility] [address] [place] [address] [facility], [facility] Mobile Home Draw [address] [place] [address] 08/04/2024 8:40 AM EDT Laboratory Lab Mobile Phlebotomy [facility] [address] [place] [address] [facility], [facility] Mobile Home Draw [address] [place] [address] 08/18/2024 8:40 AM EDT Laboratory Lab Mobile Phlebotomy [facility] [address] [place] [address] [facility], [facility] Mobile Home Draw [address] [place] [address] 08/20/2024 10:15 AM EDT Office Visit [address]hthalmology, [address] [address] Cody Gonzalez DO [address] [place], [place] [address] [address] 09/01/2024 8:40 AM EDT Laboratory Lab Mobile Phlebotomy [facility] [address] [place] [address] [facility], [facility] Mobile Home Draw [address] [place] [address] 09/15/2024 8:40 AM EDT Laboratory Lab Mobile Phlebotomy [facility] [address] [place] [address] [facility], [facility] Mobile Home Draw [address] [place] [address] Scheduled Procedures Name Priority Associated Diagnoses Date/Ti [...] Additional history exists CKD PHOS USE SMARTSET 42088 01/28/202401/03, 07/26/2022, 12/05/2021, Additional history exists Diabetic Foot Exam 03/06/2024 03/06/2023, 0 01/03/2022, 03/02/2021, Additional history exists HbA1c 05/28/2024 11/27/2023, 05/03, 01/28/2023, Additional history exists GFR 06/22/2024 12/23/2023, 11/01, 08/30/2023, Additional history exists Albumin/Creatinine Ratio 07/12/2024 023, 10/01/2022, 09/11/2021, Additional history exists COLONOSCOPY-ANNUAL AGES 18-100 08/09/2024 08/09/2023, 11/07/2022, 11/07/2022, Additional history exists CKD HGB USE SMARTSET 02132 12/26/202412/26, 12/26/2023, 12/23/2023, Additional history exists Lipid [...] this encounter Medical Devices Implanted Type Area Clinic Director Device Identifier Shelf Expiration Date Model / Serial / Lot Clareon Iol Aspheric Hydrophobic Acrylic Iol Implanted:Qty: 1 on 04/23/2023 by Cody Gonzalez DO at OR [facility] Lens Left: Eye 11/12/2025 [id number] / [id number] / Viatorr Tips Endoprosthesis 8-10 Mm X 8cm / 2cm Implanted:Qty: 1 on 10/07/2020 by Go Alvarado MD at [facility] Right: Abdomen 03/03/2023 [id number] / / [id number] Description:Viatorr TIPS End oprosthesis 8-10 mm x 8cm / 2cm, Manufactored by [employer] Syr Pf 2ml Embospheres 100-300 - [id number] Implanted:Qty: 1 on 04/18/2021 by Kevin Lim DO at OR [facility] Left: Abdomen [employer] [id number] 11/25/2023 [id number] / / [id number] Syr Pf 2ml [facility] 100-300 - [id number] Implanted:Qty: 1 on 03/28/2022 at [facility] [employer] [id number] 08/31/2024 S220GH / / [id number] -5 Clareon Iol Aspheric Hydrophobic Acrylic Iol Implanted:Qty: 1 on 04/02/2023 by Cody Gonzalez DO at OR [facility] Right: Eye JAZMIN 11/12/2025 [id number] / [id number] / documented as of this encounter Advance Directives Documents on File Type Date Recorded Patient [employer] Expl anation Advance Directives and Living Will 12/11/2022 ADVANCE DIRECTIVE / LIVING WILL LIVING WILL Power of Stock Worker And Deliverer 12/11/2022 POWER OF A TTORNEY Latest Code [...] the patient have Health Care Power of Stock Worker And Deliverer? No Full Code 07/22/2014 9:56 PM 07/24/2014 8:18 PM This order reflects the patients wishes and were consensually agreed upon. Question Answer Comments Discussion of Advance Directives occurred with: Patient Does the patient have a Living Will? No Does the patient have Health Care Power of Stock Worker And Deliverer? No Care Teams Night Stocker Relationship Specialty Start Date End Date Francisco Cisse MD [address] [place] [address] PCP - General Internal Medicine 09/04/21 documented as of this encounter
--- OUTSIDE RECORDS SUMMARY | 2024-01-25 17:11 | External Medical Summary | Summary of Care ---
Author Name Unknown Organization [facility] Address [address] [place] [address] Phone [phone] Care Team Providers Care Cast Shell Grinder Name Role Phone Francisco Cisse MD Primary Care Provider + Encounter Details Date Type Department Care Team (Latest Contact Info) Description 12/13/2023 1:15 PM EST - 12/13/2023 11:59 PM EST Hospital Encounter Radiology Film File [address] [place] [address] Discharge Disposition: Home - Self [...] mRNA, LNP-s, No Pre serve, 2-Dose Series (Oxigene) 03/08/2021,02/15/2021 HepA Inact/HepB Recomb>=18yrs old 12/04/2019,04/2019,05/20/2019 11/19/2019 PPD 06/18/2017, 3,01/09/2012,0306/2011 Pneumococcal Conjugate Vacc, 13 Valent (Prevnar) 05/01/2017 Pneumococcal Polysaccharide PPV23 (Pneumovax) 08/28/2022,10/25/2015,07/14/2012 Season Influenza, Quad, PF, Adjuvanted, 65+ Yrs, IM (FLUAD) 10/07/2020(Deferred: Patient Refused - pt says he already had his shot last month at [facility] Handy Lyons and Mckinley Cobian [...] Visit Care Coordination and Integration [address] [place] [address] Kriss Mays, Community Health Manager Heart [address] [place] [address] 01/07/2024 8:40 AM EST Laboratory Lab Mobile Phlebotomy [facility] [address] [place] [address] [facility] Mobile Home Draw [address] [place] [address] 01/21/2024 8:40 AM EST Laboratory Lab Mobile Phlebotomy [facility] [address] [place] [address] [facility], [facility] Mobile Home Draw [address] [place] [address] 01/21/2024 10:15 AM EST Cardiac Studies Cardiac Studies, [address] [address] 01/30/2024 2:05 PM EST Hospital Encounter OR [facility], Operating Room, [facility] - 4th Floor [address] [place] [address] Frank Peraza MD [address] [place] [address] [place] [address] 01/30/2024 2:05 PM EST - 01/30/2024 3:07 PM EST Surgery OR [facility], Operating Room, [facility] - 4th Floor [address] [place] [address] Frank Peraza MD [address] [place] [address] CYSTOURETHROSCOPY WITH FULGURATION MEDIUM BLADDER TUMOR 02/04/2024 8:40 AM EST Laboratory Lab Mobile Phlebotomy [facility] [address] [place] [address] [facility], [facility] Mobile Home Draw [address] [place] [address] 02/14/2024 2:45 PM EDT Office Visit Urology Lynnette Fitzpatrick [address] [place] [address] Frank Peraza MD [address] [place] [address] 02/18/2024 8:40 AM EDT Laboratory Lab Mobile Phlebotomy [facility] [address] [place] [address] Gmc, [facility] Mobile Home Draw [address] [place] [address] 03/03/2024 8:40 AM EDT Laboratory Lab Mobile Phlebotomy [facility] [address] [place] [address] Gmc, [facility] Mobile Home Draw [address] [place] [address] 03/13/2024 2:00 PM EDT Office Visit Dermatology [facility] [place] [address] [place] [address] Francisco Watson MD [address] [place] [address] 03/17/2024 8:40 AM EDT Laboratory Lab Mobile Phlebotomy [facility] [address] [place] [address] G[facility], [facility] Mobile Home Draw [address] [place] [address] 03/24/2024 2:30 PM EDT Office Visit Hematology/Oncology [facility] [address] [facility] [place] [address] Ayaka Tatum CRNP [address] [facility] [place] [address] 03/30/2024 12:00 PM EDT Office Visit Family Practice [facility] [address] [place] [address] Kristen Vences DO [address] [place] [address] 03/31/2024 8:40 AM EDT Laboratory Lab Mobile Phlebotomy [facility] [address] [place] [address] [facility] Mobile Home Draw [address] [place] [address] 04/07/2024 10:00 AM EDT Office Visit Gastroenterology, [facility] [address] [place] [address] Lamar Tatum CRNP [address] [place] [address] 04/14/2024 8:40 AM EDT Laboratory Lab Mobile Phlebotomy [facility] [address] [place] [address] [facility], [facility] Mobile Home Draw [address] [place] [address] 04/28/2024 8:40 AM EDT Laboratory Lab Mobile Phlebotomy [facility] [address] [place] [address] [facility] Mobile Home Draw [address] [place] [address] 05/12/2024 8:40 AM EDT Laboratory Lab Mobile Phlebotomy [facility] [address] [place] [address] [facility], [facility] Mobile Home Draw [address] [place] [address] 05/26/2024 8:40 AM EDT Laboratory Lab Mobile Phlebotomy [facility] [address] [place] [address] [facility], [facility] Mobile Home Draw [address] [place] [address] 06/09/2024 8:40 AM EDT Laboratory Lab Mobile Phlebotomy [facility] [address] [place] [address] [facility], [facility] Mobile Home Draw [address] [place] [address] 06/23/2024 8:40 AM EDT Laboratory Lab Mobile Phlebotomy [facility] [address] [place] [address] G[facility], [facility] Mobile Home Draw [address] [place] [address] 07/07/2024 8:40 AM EDT Laboratory Lab Mobile Phlebotomy [facility] [address] [place] [address] [facility], [facility] Mobile Home Draw [address] [place] [address] 07/21/2024 8:40 AM EDT Laboratory Lab Mobile Phlebotomy [facility] [address] [place] [address] [facility], [facility] Mobile Home Draw [address] [place] [address] 08/04/2024 8:40 AM EDT Laboratory Lab Mobile Phlebotomy [facility] [address] [place] [address] [facility], [facility] Mobile Home Draw [address] [place] [address] 08/18/2024 8:40 AM EDT Laboratory Lab Mobile Phlebotomy [facility] [address] [place] [address] [facility] Mobile Home Draw [address] [place] [address] 08/20/2024 10:15 AM EDT Office Visit Ophthalmology, [facility] [address] [place] [address] Cody Gonzalez, DO [address] [place] [address] 09/01/2024 8:40 AM EDT Laboratory Lab Mobile Phlebotomy [facility] [address] [place] [address] [facility] Mobile Home Draw [address] [place] [address] 09/15/2024 8:40 AM EDT Laboratory Lab Mobile Phlebotomy [facility] [address] [place] [address] [facility], [facility] Mobile Home Draw [address] [place] [address] Scheduled Procedures Name Priority Associated Diagnoses Date/Ti [...] Additional history exists CKD PHOS USE SMARTSET 11169 01/28/202401/03, 07/26/2022, 12/05/2021, Additional history exists Diabetic Foot Exam 03/06/2024 03/06/2023, 0 01/03/2022, 03/02/2021, Additional history exists HbA1c 05/28/2024 11/27/2023, 05/03, 01/28/2023, Additional history exists GFR 06/22/2024 12/23/2023, 11/01, 08/30/2023, Additional history exists Albumin/Creatinine Ratio 07/12/2024 023, 10/01/2022, 09/11/2021, Additional history exists COLONOSCOPY-ANNUAL AGES 18-100 08/09/2024 08/09/2023, 11/07/2022, 11/07/2022, Additional history exists CKD HGB USE SMARTSET 10467 12/26/202412/26, 12/26/2023, 12/23/2023, Additional history exists Lipid [...] this encounter Medical Devices Implanted Type Area Pediatric Intensive Physician Device Identifier Shelf Expiration Date Model / Serial / Lot Clareon Iol Aspheric Hydrophobic Acrylic Iol Implanted:Qty: 1 on 04/23/2023 by Cody Gonzalez DO at OR [facility] Lens Left: Eye 11/12/2025 CNA0T0 / [id number] / Viatorr Tips Endoprosthesis 8-10 Mm X 8cm / 2cm Implanted:Qty: 1 on 10/07/2020 by Go Alvarado MD at [facility] Right: Abdomen 03/03/2023 [id number] / / [id number] Description:Viatorr TIPS End oprosthesis 8-10 mm x 8cm / 2cm, Manufactored by [employer] Syr Pf 2ml Embospheres 100-300 - [id number] Implanted:Qty: 1 on 04/18/2021 by Kevin Lim DO at OR [facility] Left: Abdomen [employer] [id number] 11/25/2023 S220GH / / [id number] Syr Pf 2ml Embospheres 100-300 - [id number] Implanted:Qty: 1 on 03/28/2022 at [facility] [employer] [id number] 08/31/2024 S220GH / / [id number] -5 Clareon Iol Aspheric Hydrophobic Acrylic Iol Implanted:Qty: 1 on 04/02/2023 by Cody Gonzalez DO at OR [facility] Right: Eye JAZMIN 11/12/2025 CNA0T0 / [id number] / documented as of this encounter Procedures Procedure Name Priority Date/Time Associated Diagnosis Comments RADIOLOGY EXAM - MRI (IMAGES ONLY, NO REPORT) Routine 12/13/2023 1:15 PM EST documented in this encounter Results * RADIOLOGY EXAM - MRI (IMAGES ONLY, NO REPORT) (12/13/2023 1:15 PM EST) 12/13/2023 1:15 PM EST Narrative Scheduling, Silent - 12/26/2023 12:32 PM EST This is an imaging study not interpreted or resulted by a [facility] or [facility] contracted radiologist. Francisco Cisse MD RAD MRI-MRA documented in this encounter Advance Directives Documents on File Type Date Recorded Patient Library Associate Expl anation Advance Directives and Living Will 12/11/2022 ADVANCE DIRECTIVE / LIVING WILL LIVING WILL Power of Machine Repairman 12/11/2022 POWER OF A TTORNEY Latest Code [...] patient have Health Care Power of Machine Repairman? No Full Code 07/22/2014 9:56 PM 07/24/2014 8:18 PM This order reflects the patients wishes and were consensually agreed upon. Question Answer Comments Discussion of Advance Directives occurred with: Patient Does the patient have a Living Will? No Does the patient have Health Care Power of Machine Repairman? No Care Teams Cast Shell Grinder Relationship Specialty Start Date End Date Francisco Cisse MD [address] [place] [address], [place] [address] PCP - General Internal Medicine 09/04/21 documented as of this encounter
--- OUTSIDE RECORDS SUMMARY | 2024-01-25 17:11 | External Medical Summary | Summary of Care ---
Author Name Unknown Organization [facility] Address [address] [facility] [place] [address] Phone [phone] Care Team Providers Care Air Pollution Analyst Name Role Phone Francisco Cisse MD Primary Care Provider + Reason for Visit * Reason Onset Date Comments Medication Refill 01/01/2024 Encounter Details Date Type Department Care Team (Late st Contact Info) Description 01/01/2024 Refill General Internal Medicine [facility] [address] [facility] [place] [address] Francisco Cisse MD 200 [place] [address] Allergies No known active allergiesdocumented as of this encounter (statuses as of 01/02/2024) Medications Medication Sig Dispensed Refills Start Date [...] the morning. 90 Capsule 1 01/02/2024 Active DULoxetine HCl 30 MG Oral Capsule Delayed Release Particles (Cymbalta) Take 1 Capsule by mouth in the morning. 30 Capsule 5 09/23/2023 01/01/20 24 Discontinu ed(Refill) Hospital, Clinic, or Other Facility [...] as of this encounter (statuses as of 01/02/2024) Active Problems Problem Noted Date Diagnosed Date [...] as of this encounter (statuses as of 01/02/2024) Resolved Problems Problem Noted Date Diagnosed Date [...] as of this encounter (statuses as of 01/02/2024) Immunizations Name Administration Dates Next Due COVID-19 mRNA, LNP-s, No Pre serve, 2-Dose Series (invino) 03/08/2021,02/15/2021 HepA Inact/HepB Recomb>=18yrs old 12/04/2019,04/2019,05/20/2019 11/19/2019 PPD 06/18/2017, 3,01/09/2012,06/2011 Pneumococcal Conjugate Vacc, 13 Valent (Prevnar) 05/01/2017 Pneumococcal Polysaccharide PPV23 (Pneumovax) 08/28/2022,10/25/2015,07/14/2012 Season Influenza, Quad, PF, Adjuvanted, 65+ Yrs, IM (FLUAD) 10/07/2020(Deferred: Patient Refused - pt says he already had his shot last month at [facility] Handy Lyons and Mckinley Cobian [...] encounter Miscellaneous Notes * Telephone Encounter - Zane Chaudhry RPh - 01/02/2024 1:55 PM EST Signed Prescriptions: Disp Refills DULoxetine HCl 30 MG Oral Capsule Delayed *90 Cap*1 Sig: Take 1 Capsule by mouth in the morning.Authorizing Provider: FRANCISCO CISSE User: ZANE CHAUDHRY documented in this encounter Plan of Treatment Upcoming Encounters Date Type Department Care Team (Latest Contact Info) Description 01/07/2024 8:40 AM EST Laboratory Lab Mobile Phlebotomy [facility] [address] [place] [address] [facility] [address] [place] [address] 01/21/2024 8:40 AM EST Laboratory Lab Mobile Phlebotomy [facility] [address] [place] [address] [facility] [address], [place] [address] 01/21/2024 10:15 AM EST Cardiac Studies Cardiac Studies, [facility] [address] [place] [address] 01/30/2024 2:05 PM EST Hospital Encounter OR [facility], Operating Room, [facility] - 4th Floor [address] [place] [address] Frank Peraza MD [address] [place] [address] [place] [address] 01/30/2024 2:05 PM EST - 01/30/2024 3:07 PM EST Surgery OR [facility], Operating Room, [facility] - 4th Floor [address] [place] [address] Frank Peraza MD [address] [place] [address] [place] [address] CYSTOURETHROSCOPY WITH FULGURATION MEDIUM BLADDER TUMOR 02/04/2024 8:40 AM EST Laboratory Lab Mobile Phlebotomy [facility] [address] [place] [facility] [place] [address] [facility] [address] [place] [address] 02/14/2024 2:45 PM EDT Office Visit Urology Lynnette Fitzpatrick [address] [place] [address] Frank Peraza MD [address] [place] [address] [place] [address] 02/18/2024 8:40 AM EDT Laboratory Lab Mobile Phlebotomy [facility] [address] [facility] [place] [facility] [place] [address] [facility] [address] [place] [address] 03/03/2024 8:40 AM EDT Laboratory Lab Mobile Phlebotomy [facility] [address] [place] [address] [facility] [address] [place] [address] 03/13/2024 2:00 PM EDT Office Visit Dermatology [facility] [address] [facility] [place] [address] Francisco Watson MD 200 [place] [address] 03/17/2024 8:40 AM EDT Laboratory Lab Mobile Phlebotomy [facility] [address] [place] [address] [facility] [address] [place] [address] 03/24/2024 2:30 PM EDT Office Visit Hematology/Oncolo gy [facility] [address] [facility] [place] [address] Ayaka Tatum CRNP [address] [place] [address] 03/30/2024 12:00 PM EDT Office Visit Family Practice [facility] [address] [place] [address] Kristen Vences DO [facility] [address] 03/31/2024 8:40 AM EDT Laboratory Lab Mobile Phlebotomy [facility] [address] [place] [address] [facility] [address] [place] [address] 04/07/2024 10:00 AM EDT Office Visit Gastroenterology, [facility] [address] [place] [address] Lamar Tatum CRNP [address] [facility] [place] [address] 04/14/2024 8:40 AM EDT Laboratory Lab Mobile Phle[facility] [address] [place] [address] [facility] [address] [place] [address] 04/28/2024 8:40 AM EDT Laboratory Lab Mobile Phlebotomy [facility] [address] [place] [address] [facility] [address] [place] [address] 05/12/2024 8:40 AM EDT Laboratory Lab Mobile Phlebotomy [facility] [address] [place] [address] [facility] [address] [place] [address] 05/26/2024 8:40 AM EDT Laboratory Lab Mobile Phlebot[facility] [address] [place] [address] [facility] [address] [place] [address] 06/09/2024 8:40 AM EDT Laboratory Lab Mobile Phlebotomy [facility] [address] [place] [address] [facility] [address] [place] [address] 06/23/2024 8:40 AM EDT Laboratory Lab Mobile Phlebotomy [facility] [address] [place] [address] [facility] [address] [place] [address] 07/07/2024 8:40 AM EDT Laboratory Lab Mobile Phlebotomy [facility] [address] [place] [address] [facility] [address] [place] [address] 07/21/2024 8:40 AM EDT Laboratory Lab Mobile Phlebotomy [facility] [address] [place] [address] [facility] [address] [place] [address] 08/04/2024 8:40 AM EDT Laboratory Lab Mobile Phlebotomy [facility] [address] [place] [address] [facility] [address] [place] [address] 08/18/2024 8:40 AM EDT Laboratory Lab Mobile Phlebotomy [facility] [address] [place] [address] [facility] [address] [place] [address] 08/20/2024 10:15 AM EDT Office Visit Ophthalmology, [address] [address] Cody Gonzalez, [address] [address] 09/01/2024 8:40 AM EDT Laboratory Lab Mobile Phlebotomy [facility] [address] [place] [address] [facility] [address] [place] [address] 09/15/2024 8:40 AM EDT Laboratory Lab Mobile Phlebotomy [facility] [address], [place] [address] [facility] [address] [place] [address] Scheduled Procedures Name Priority Associated Diagnoses Date/Ti [...] Additional history exists CKD PHOS USE SMARTSET 97367 01/28/202401/03, 07/26/2022, 12/05/2021, Additional history exists Diabetic Foot Exam 03/06/2024 03/06/2023, 0 01/03/2022, 03/02/2021, Additional history exists HbA1c 05/28/2024 11/27/2023, 05/03, 01/28/2023, Additional history exists GFR 06/22/2024 12/23/2023, 11/01, 08/30/2023, Additional history exists Albumin/Creatinine Ratio 07/12/2024 023, 10/01/2022, 09/11/2021, Additional history exists COLONOSCOPY-ANNUAL AGES 18-100 08/09/2024 08/09/2023, 11/07/2022, 11/07/2022, Additional history exists CKD HGB USE SMARTSET 45252 12/26/202412/26, 12/26/2023, 12/23/2023, Additional history exists Lipid [...] this encounter Medical Devices Implanted Type Area Label Press Operator Device Identifier Shelf Expiration Date Model / Serial / Lot Clareon Iol Aspheric Hydrophobic Acrylic Iol Implanted:Qty: 1 on 04/23/2023 by Cody Gonzalez DO at OR [facility] Lens Left: Eye 11/12/2025 [id number] / [id number] / Viatorr Tips Endoprosthesis 8-10 Mm X 8cm / 2cm Implanted:Qty: 1 on 10/07/2020 by Go Alvarado MD at [facility] Right: Abdomen 03/03/2023 [id number] / / [id number] Description:Viatorr TIPS End oprosthesis 8-10 mm x 8cm / 2cm, Manufactored by [employer] Syr Pf 2ml Embospheres 100-300 - [id number] Implanted:Qty: 1 on 04/18/2021 by Kevin Lim DO at OR [facility] Left: Abdomen [employer] [id number] 11/25/2023 S220GH / / [id number] Syr Pf 2ml Embospheres 100-300 - [id number] Implanted:Qty: 1 on 03/28/2022 at [facility] [employer] [id number] 08/31/2024 S220GH / / [id number] -[id number] Clareon Iol Aspheric Hydrophobic Acrylic Iol Implanted:Qty: 1 on 04/02/2023 by Cody Gonzalez DO at OR [facility] Right: Eye JAZMIN 11/12/2025 CNA0T0 / [id number] / documented as of this encounter Advance Directives Documents on File Type Date Recorded Patient Rod Buster Helper Expl anation Advance Directives and Living Will 12/11/2022 ADVANCE DIRECTIVE / LIVING WILL LIVING WILL Power of Cartridge Assembling Machine Adjuster 12/11/2022 POWER OF A TTORNEY Latest Code [...] the patient have Health Care Power of Cartridge Assembling Machine Adjuster? No Full Code 07/22/2014 9:56 PM 07/24/2014 8:18 PM This order reflects the patients wishes and were consensually agreed upon. Question Answer Comments Discussion of Advance Directives occurred with: Patient Does the patient have a Living Will? No Does the patient have Health Care Power of Cartridge Assembling Machine Adjuster? No Care Teams Air Pollution Analyst Relationship Specialty Start Date End Date Francisco Cisse MD [address] [place] [address] PCP - General Internal Medicine 09/04/21 documented as of this encounter
--- OUTSIDE RECORDS SUMMARY | 2024-01-25 17:12 | External Medical Summary | Summary of Care ---
Author Name Unknown Organization [facility] Address [address] [facility] [address] Phone [phone] Care Team Providers Care Geriatric Physician Name Role Phone Francisco Cisse MD Primary Care Provider + Reason for Visit * Reason Comments Outpatient Testing Encounter Details Date Type Department Care Team (Late st Contact Info) Description 12/23/2023 4:20 PM EST Laboratory Laboratory, [facility] [address] [facility] [place] [address] [facility] [address] [facility] [place] [address] Pre-transplant evaluation for chronic liver disease; Hepatocellular carcinoma (HCC); Iron deficiency anemia, unspecified iron deficiency anemia type; S/P TIPS (transjugular intrahepatic portosystemic shunt); Pancytopenia (HCC); Prostate cancer (HCC); Left renal mass; Hematuria, gross; Abnormal cystoscopy; Pre-op testing; Decreased hemoglobin Allergies No known active allergiesdocumented as of this encounter (statuses as of 12/23/2023) Medications Medication Sig Dispensed Refills Start Date [...] as of this encounter (statuses as of 12/23/2023) Active Problems Problem Noted Date Diagnosed Date [...] as of this encounter (statuses as of 12/23/2023) Resolved Problems Problem Noted Date Diagnosed Date [...] as of this encounter (statuses as of 12/23/2023) Immunizations Name Administration Dates Next Due COVID-19 mRNA, LNP-s, No Pre serve, 2-Dose Series ([employer]) 03/08/2021,02/15/2021 HepA Inact/HepB Recomb>=18yrs old 12/04/2019,04/2019,05/20/2019 11/19/2019 [...] Care Team (Late st Contact Info) Description 12/24/2023 2:30 PM EST Office Visit Hematology/Oncology [facility] [address] [place] [address] Jennifer Ramires MD 200 [facility] [place] [address] 12/26/2023 9:40 AM EST Office Visit Family Practice [facility] [address] [place] [address] Robinson Olson CRNP [address] [place] [address] 12/27/2023 2:30 PM EST Imaging Radiology [facility]st [facility] [address] [place] [address] 01/21/2024 10:15 AM EST Cardiac Studies Cardiac Studies, [facility] [address] [facility] [place] [address] 01/30/2024 Hospital Encounter OR [facility], Operating Room, [facility] - 4th [facility] [place] [address] Frank Peraza MD [address] [place] [address] [place] [address] 02/04/2024 11:20 AM EST Office Visit Family Practice [facility] [address] [facility] [place] [address] Robinson Olson CRNP [address] [place] [address] 02/14/2024 2:45 PM EDT Office Visit Urology Lynnette Fitzpatrick [address] [place] [address] Frank Peraza MD [address] [place] [address] [place] [address] 03/13/2024 2:00 PM EDT Office Visit Dermatology [facility] 200 [facility] [place] [address] Francisco Watson MD 200 [facility] [place] [address] 08/20/2024 10:15 AM EDT Office Visit Ophthalmology, [facility] [address] [facility] [place] [address] Cody Gonzalez DO 21 [facility] [place] [address] Pending Results Name Type Priority Associated Diagnoses Date /Time ALPHA-FETOPROTEIN TUMOR MARKER Lab Routine Pre-transplant evaluation for chronic liver disease Hepatocellular carcinoma (HCC) 12/23/2023 4:24 PM EST COMPREHENSIVE METABOLIC PANEL Lab Routine Pre-transplant evaluation for chronic liver disease Hepatocellular carcinoma (HCC) 12/23/2023 4:24 PM EST PT INR Lab Routine Pre-transplant evaluation for chronic liver disease Hepatocellular carcinoma (HCC) 12/23/2023 4:24 PM EST CBC WITH WBC DIFFERENTIAL Lab STAT Iron deficiency anemia, unspecified iron deficiency anemia type 12/23/2023 4:24 PM EST IRON SCREEN, INCLUDING TIBC Lab STAT Iron deficiency anemia, unspecified iron deficiency anemia type 12/23/2023 4:24 PM EST FERRITIN Lab STAT Iron deficiency anemia, unspecified iron deficiency anemia type 12/23/2023 4:24 PM EST PSA Lab Routine Prostate cancer (HCC) 12/23/2023 4:24 PM EST CULTURE, URINE, QUANTITATIVE Lab Routine Left renal mass Prostate cancer (HCC) Hematuria, gross Abnormal cystoscopy Pre-op testing 12/23/2023 4:24 PM EST URINALYSIS, REFLEX TO MICROSCOPIC Lab Routine Left renal mass Prostate cancer (HCC) Hematuria, gross Abnormal cystoscopy Pre-op testing 12/23/2023 4:24 PM EST CBC Lab STAT Iron deficiency anemia, unspecified iron deficiency anemia type 12/23/2023 4:24 PM EST DIFFERENTIAL, AUTOMATED Lab STAT Iron deficiency anemia, unspecified iron deficiency anemia type 12/23/2023 4:24 PM EST Scheduled Procedures Name Priority Associated Diagnoses Date/Ti me CYSTOURETHROSCOPY WITH FULGU RATION MEDIUM BLADDER TUMOR Hematuria, gross Abnormal cystoscopy COLONOSCOPY FLEXIBLE PROXIMAL DIAGNOSTIC Recall History of [...] Additional history exists CKD PHOS USE SMARTSET 11023 01/28/202401/03, 07/26/2022, 12/05/2021, Additional history exists Diabetic Foot Exam 03/06/2024 03/06/2023, 0 01/03/2022, 03/02/2021, Additional history exists GFR 05/17/2024 11/16/2023, 08/03, 07/24/2023, Additional history exists HbA1c 05/28/2024 11/27/2023, 05/03, 01/28/2023, Additional history exists Albumin/Creatinine Ratio 07/12/2024 023, 10/01/2022, 09/11/2021, Additional history exists COLONOSCOPY-ANNUAL AGES 18-100 08/09/2024 08/09/2023, 11/07/2022, 11/07/2022, Additional history exists CKD HGB USE SMARTSET 35105 12/19/202412/19, 12/06/2023, 12/06/2023, Additional history exists Lipid Panel 01/28/2028 01/28/2023, [...] this encounter Medical Devices Implanted Type Area Clinical Laboratory Assistant Device Identifier Shelf Expiration Date Model / Serial / Lot Clareon Iol Aspheric Hydrophobic Acrylic Iol Implanted:Qty: 1 on 04/23/2023 by Cody Gonzalez DO at OR [facility] Lens Left: Eye 11/12/2025 CNA0T0 / [id number] / Viatorr Tips Endoprosthesis 8-10 Mm X 8cm / 2cm Implanted:Qty: 1 on 10/07/2020 by Go Alvarado MD at [facility] Right: Abdomen 03/03/2023 [id number] / / [id number] Description:Viatorr TIPS End oprosthesis 8-10 mm x 8cm / 2cm, Manufactored by [employer] Syr Pf 2ml Embospheres 100-300 - [id number] Implanted:Qty: 1 on 04/18/2021 by Kevin Lim DO at OR [facility] Left: Abdomen [employer] [id number] 11/25/2023 S220GH / / [id number] Syr Pf 2ml Embospheres 100-300 - [id number] Implanted:Qty: 1 on 03/28/2022 at [facility] [employer] [id number] 08/31/2024 S220GH / / [id number] -[id number] Clareon Iol Aspheric Hydrophobic Acrylic Iol Implanted:Qty: 1 on 04/02/2023 by Cody Gonzalez DO at OR [facility] Right: Eye JAZMIN 11/12/2025 CNA0T0 / [id number] / documented as of this encounter Visit Diagnoses Diagnosis Hematuria, gross- Primary Gross hematuria Abnormal cystoscopy Other nonspecific abnormal finding Pre-transplant evaluation for chronic liver disease Other specified pre-operative examination Hepatocellular carcinoma (HCC) Malignant neoplasm of liver, primary Iron deficiency anemia, unspecified iron deficiency anemia type S/P TIPS (transjugular intrahepatic portosystemic shunt) Other postprocedural status Pancytopenia (HCC) Other pancytopenia Prostate cancer (HCC) Malignant neoplasm of prostate Left renal mass Unspecified disorder of kidney and ureter Hematuria, gross Gross hematuria Abnormal cystoscopy Other nonspecific abnormal finding Pre-op testing Preoperative examination, unspecified Decreased hemoglobin Anemia, unspecified documented in this encounter Advance Directives Documents on File Type Date Recorded Patient Metal Alloy Scientist Expl anation Advance Directives and Living Will 12/11/2022 ADVANCE DIRECTIVE / LIVING WILL LIVING WILL Power of Right Of Way Worker 12/11/2022 POWER OF A TTORNEY Latest [...] the patient have Health Care Power of Right Of Way Worker? No Full Code 07/22/2014 9:56 PM 07/24/2014 8:18 PM This order reflects the patients wishes and were consensually agreed upon. Question Answer Comments Discussion of Advance Directives occurred with: Patient Does the patient have a Living Will? No Does the patient have Health Care Power of Right Of Way Worker? No Care Teams Geriatric Physician Relationship Specialty Start Date End Date Francisco Cisse MD 200 [place] [address] PCP - General Internal Medicine 09/04/21 documented as of this encounter
--- OUTSIDE RECORDS SUMMARY | 2024-01-25 17:12 | External Medical Summary | Summary of Care ---
Author Name Unknown Organization [facility] Address [address] [facility] [place] [address] Phone [phone] Care Team Providers Care Student Accounts Manager Name Role Phone Francisco Cisse MD Primary Care Provider + Reason for Visit * Reason Onset Date Comments Appointment 12/26/2023 Encounter Details Date Type Department Care Team (Late st Contact Info) Description 12/26/2023 Telephone Radiology [address] [place] [address] [place] Warren TECH Appointment Allergies No known [...] mRNA, LNP-s, No Pre serve, 2-Dose Series (Phone2[employer]) 03/08/2021,02/15/2021 HepA Inact/HepB Recomb>=18yrs old 12/04/2019,04/2019,05/20/2019 11/19/2019 PPD 06/18/2017, 3,01/09/2012,0306/2011 Pneumococcal Conjugate Vacc, 13 Valent (Prevnar) 05/01/2017 Pneumococcal Polysaccharide PPV23 (Pneumovax) 08/28/2022,10/25/2015,07/14/2012 Season Influenza, Quad, PF, Adjuvanted, 65+ Yrs, IM (FLUAD) 10/07/2020(Deferred: Patient Refused - pt says [facility] Handy Lyons and Mckinley Cobian made [...] Department Care Team (Latest Contact Info) Description 12/27/2023 2:30 PM EST Imaging Radiology [facility] 1st [facility] [address] [place] [address] 12/30/2023 11:00 AM EST Home Visit Care Coordination and Integration [address] [place] [address] Kriss Mays, Community Health Radio Journalist [address] [place] [address] 01/07/2024 8:40 AM EST Laboratory Lab Mobile Phlebotomy [facility] [address] [place] [address] [facility], [facility] Mobile Home Draw [address] [place] [address] 01/21/2024 8:40 AM EST Laboratory Lab Mobile Phlebotomy [facility] [address] [place] [address] [facility], [facility] Mobile Home Draw [address] [place] [address] 01/21/2024 10:15 AM EST Cardiac Studies Cardiac Studies, [facility] 132 [facility] [place] [address] 01/30/2024 2:05 PM EST Hospital Encounter OR [facility], Operating Room, [facility] - 4th Floor 400 [facility] [place] [address] Frank Peraza MD [address] [address] [place] [address] 01/30/2024 2:05 PM EST - 01/30/2024 3:07 PM EST Surgery OR [facility], Operating Room, [facility] - 4th Floor [address] [place] [address] Frank Peraza MD [address] [place] [address] CYSTOURETHROSCOPY WITH FULGURATION MEDIUM BLADDER TUMOR 02/04/2024 8:40 AM EST Laboratory Lab Mobile Phlebotomy [facility] [address] [place] [address] [facility], [facility] Mobile Home Draw [address] [place] [address] 02/14/2024 2:45 PM EDT Office Visit Urology Lynnette Fitzpatrick [address] [place] [address] Frank Peraza MD [address] [place] [address] 02/18/2024 8:40 AM EDT Laboratory Lab Mobile Phlebotomy [facility] [address] [place] [address] [facility] Mobile Home Draw [address] [place] [address] 03/03/2024 8:40 AM EDT Laboratory Lab Mobile Phlebotomy [facility] [address] [place] [address] [facility], [facility] Mobile Home Draw [address] [place] [address] 03/13/2024 2:00 PM EDT Office Visit Dermatology [place] 200 [facility] [place], [place] [address] Francisco Watson MD 200 [facility] [place] [address] 03/17/2024 8:40 AM EDT Laboratory Lab Mobile Phlebotomy [facility] [address] [place] [address] [facility], [facility] Mobile Home Draw [address] [place] [address] 03/24/2024 2:30 PM EDT Office Visit Hematology/Oncology [facility] [address] [place] [address] Ayaka Tatum CRNP [address] [place] [address] 03/30/2024 12:00 PM EDT Office Visit Family Practice [facility] [address] [place] [address] Kristen Vences DO 132 [place] [address] 03/31/2024 8:40 AM EDT Laboratory Lab Mobile Phlebotomy [facility] [address] [place] [address] [facility], [facility] Mobile Home Draw [address] [place] [address] 04/07/2024 10:00 AM EDT Office Visit Gastroenterology, [facility] [address] [place] [address] Lamar Tatum CRNP [address] [place] [address] 04/14/2024 8:40 AM EDT Laboratory Lab Mobile Phlebotomy [facility] [address] [place] [address] [facility], [facility] Mobile Home Draw [address] [place] [address] 04/28/2024 8:40 AM EDT Laboratory Lab Mobile Phlebotomy [facility] [address] [place] [address] [facility], [facility] Mobile Home Draw [address] [place] [address] 05/12/2024 8:40 AM EDT Laboratory Lab Mobile Phlebotomy [facility] [address] [place] [address] [facility], [facility] Mobile Home Draw [address] [place] [address] 05/26/2024 8:40 AM EDT Laboratory Lab Mobile Phlebotomy [facility] [address] [place] [address] [facility], [facility] Mobile Home Draw [address] [place] [address] 06/09/2024 8:40 AM EDT Laboratory Lab Mobile Phlebotomy [facility] [address] [place] [address] [facility], [facility] Mobile Home Draw [address] [place] [address] 06/23/2024 8:40 AM EDT Laboratory Lab Mobile Phlebotomy [facility] [address] [place] [address] [facility], [facility] Mobile Home Draw [address] [place] [address] 07/07/2024 8:40 AM EDT Laboratory Lab Mobile Phlebotomy [facility] [address] [place] [address] [facility], [facility] Mobile Home Draw [address] [place] [address] 07/21/2024 8:40 AM EDT Laboratory Lab Mobile Phlebotomy [facility] [address] [place] [address] [facility], [facility] Mobile Home Draw [address] [place] [address] 08/04/2024 8:40 AM EDT Laboratory Lab Mobile Phlebotomy [facility] [address] [place] [address] [facility], [facility] Mobile Home Draw [address] [place] [address] 08/18/2024 8:40 AM EDT Laboratory Lab Mobile Phlebotomy [facility] [address] [place] [address] [facility], [facility] Mobile Home Draw [address] [place] [address] 08/20/2024 10:15 AM EDT Office Visit Ophthalmology, [address] [address] Cody Gonzalez, DO [address] [place] [address] 09/01/2024 8:40 AM EDT Laboratory Lab Mobile Phlebotomy [facility] [address] [place] [address] [facility], [facility] Mobile Home Draw [address] [place] [address] 09/15/2024 8:40 AM EDT Laboratory Lab Mobile Phlebotomy [facility] [address] [place] [address] [facility], [facility] Mobile Home Draw [address] [place] [address] Scheduled Procedures Name Priority Associated Diagnoses Date/Ti [...] Additional history exists CKD PHOS USE SMARTSET 07793 01/28/202401/03, 07/26/2022, 12/05/2021, Additional history exists Diabetic Foot Exam 03/06/2024 03/06/2023, 0 01/03/2022, 03/02/2021, Additional history exists HbA1c 05/28/2024 11/27/2023, 05/03, 01/28/2023, Additional history exists GFR 06/22/2024 12/23/2023, 11/01, 08/30/2023, Additional history exists Albumin/Creatinine Ratio 07/12/2024 023, 10/01/2022, 09/11/2021, Additional history exists COLONOSCOPY-ANNUAL AGES 18-100 08/09/2024 08/09/2023, 11/07/2022, 11/07/2022, Additional history exists CKD HGB USE SMARTSET 21792 12/23/202412/23, 12/23/2023, 12/19/2023, Additional history exists Lipid [...] this encounter Medical Devices Implanted Type Area Invasive Cardiovascular Technologist Device Identifier Shelf Expiration Date Model / Serial / Lot Clareon Iol Aspheric Hydrophobic Acrylic Iol Implanted:Qty: 1 on 04/23/2023 by Cody Gonzalez DO at OR [facility] Lens Left: Eye 11/12/2025 CNA0T0 / [id number] / Viatorr Tips Endoprosthesis 8-10 Mm X 8cm / 2cm Implanted:Qty: 1 on 10/07/2020 by Go Alvarado MD at [facility] Right: Abdomen 03/03/2023 [id number] / / [id number] Description:Viatorr TIPS End oprosthesis 8-10 mm x 8cm / 2cm, Manufactored by [employer] Syr Pf 2ml Embospheres 100-300 - [id number] Implanted:Qty: 1 on 04/18/2021 by Kevin Lim DO at OR [facility] Left: Abdomen [employer] [id number] 11/25/2023 S220GH / / [id number] Syr Pf 2ml Embospheres 100-300 - [id number] Implanted:Qty: 1 on 03/28/2022 at [facility] [employer] [id number] 08/31/2024 S220GH / / [id number] -[id number] Clareon Iol Aspheric Hydrophobic Acrylic Iol Implanted:Qty: 1 on 04/02/2023 by Cody Gonzalez DO at OR [facility] Right: Eye JAZMIN 11/12/2025 CNA0T0 / [id number] / documented as of this encounter Advance Directives Documents on File Type Date Recorded Patient Tagman Expl anation Advance Directives and Living Will 12/11/2022 ADVANCE DIRECTIVE / LIVING WILL LIVING WILL Power of Tipple Boss 12/11/2022 POWER OF A TTORNEY Latest Code [...] the patient have Health Care Power of Tipple Boss? No Full Code 07/22/2014 9:56 PM 07/24/2014 8:18 PM This order reflects the patients wishes and were consensually agreed upon. Question Answer Comments Discussion of Advance Directives occurred with: Patient Does the patient have a Living Will? No Does the patient have Health Care Power of Tipple Boss? No Care Teams Student Accounts Manager Relationship Specialty Start Date End Date Francisco Cisse MD [address] [place], [place] [address] PCP - General Internal Medicine 09/04/21 documented as of this encounter
--- OUTSIDE RECORDS SUMMARY | 2024-01-25 17:12 | External Medical Summary | Summary of Care ---
Author Name Unknown Organization [facility] Address [address] [place] [address] Phone [phone] Care Team Providers Care Ice Rink Attendant Name Role Phone Francisco Cisse MD Primary Care Provider + Reason for Visit * Reason Onset Date Comments Advice 12/24/2023 Encounter Details Date Type Department Care Team (Late st Contact Info) Description 12/[facility] [address] [place] [address] Services, [facility] [address] [place] [address] Advice Allergies No known active allergiesdocumented as of this encounter (statuses as of 12/24/2023) Medications Medication Sig Dispensed Refills Start Date [...] as of this encounter (statuses as of 12/24/2023) Active Problems Problem Noted Date Diagnosed Date [...] as of this encounter (statuses as of 12/24/2023) Resolved Problems Problem Noted Date Diagnosed Date [...] as of this encounter (statuses as of 12/24/2023) Immunizations Name Administration Dates Next Due COVID-19 mRNA, LNP-s, No Pre serve, 2-Dose Series ([email or web address]) 03/08/2021,02/15/2021 HepA Inact/HepB Recomb>=18yrs old 12/04/2019,04/2019,05/20/2019 11/19/2019 PPD 06/18/2017, 3,01/09/2012,0306/2011 Pneumococcal Conjugate Vacc, 13 Valent (Prevnar) 05/01/2017 Pneumococcal Polysaccharide PPV23 (Pneumovax) 08/28/2022,10/25/2015,07/14/2012 Season Influenza, Quad, PF, Adjuvanted, 65+ Yrs, IM (FLUAD) 10/07/2020(Deferred: Patient Refused - pt says he already had his shot last month at [facility] Handy Lyons and Mckinley Cobian [...] Telephone Encounter - Jocelyne Sykes, RN - 12/24/2023 3:41 PM EST Return call placed to Mr. Hale. He shares that he completed a MRI at [facility] on 12/13/23. Scanned report available in [facility] chart but images are not available. Mr. Hale is agreeable to have the images pushed into the [employer] system from [facility], request faxed to [phone]. I asked Mr. Hale to not cancel his MRI appointment until the images have been reviewed by the radiologist at [facility] in case further imaging is needed. He is agreeable to this plan. * Telephone Encounter - Carlee López OSA - 12/24/2023 11:48 AM EST Pt calling in stating he is scheduled for an MRI WO contrast. Pt stated he did a MRI with Contrast in [facility] 2 weeks ago. Pt wondering if he still needs to do this? Please contact pt at [phone] documented in this encounter Plan of Treatment Upcoming Encounters Date Type Department Care Team (Latest Contact Info) Description 12/26/2023 9:40 AM EST Office Visit Family [address] [place] [address] Robinson Olson CRNP [facility] [place] [address] 12/26/2023 10:20 AM EST Laboratory Lab Mobile Phlebotomy [facility] [address] [place] [address] [facility] Mobile Home Draw [address] [place] [address] 12/27/2023 2:30 PM EST Imaging Radiology [facility]st [facility] [address] [facility] [place] [address] 01/09/2024 10:20 AM EST Laboratory Lab Mobile Phlebotomy [facility] [address] [place] [address] [facility] Mobile Home Draw [address] [place] [address] 01/21/2024 10:15 AM EST Cardiac Studies Cardiac Studies, [facility] [address] [facility] [place] [address] 01/23/2024 10:20 AM EST Laboratory Lab Mobile Phlebotomy [facility] [address] [place] [address] [facility] Mobile Home Draw [address] [place] [address] 01/30/2024 2:05 PM EST Hospital Encounter OR [facility], Operating Room, [facility] - 4th Floor [facility] [address] Frank Peraza MD [address] [address] [place] [address] 01/30/2024 2:05 PM EST - 01/30/2024 3:07 PM EST Surgery OR [facility], Operating Room, [facility] - 4th Floor [address] [place] [address] Frank Peraza MD [address] [place] [address] CYSTOURETHROSCOPY WITH FULGURATION MEDIUM BLADDER TUMOR 02/04/2024 11:20 AM EST Office Visit Family [facility] 132 [place] [address] Robinson Olson CRNP [address] [place] [address] 02/06/2024 10:20 AM EST Laboratory Lab Mobile Phlebotomy [facility] [address] [place] [address] [facility], [facility] Mobile Home Draw [address] [place] [address] 02/14/2024 2:45 PM EDT Office Visit Urology Lynnette Fitzpatrick [address] [place] [address] Frank Peraza MD [address] [place] [address] 02/20/2024 10:20 AM EDT Laboratory Lab Mobile Phlebotomy [facility] [address] [place] [address] [facility], [facility] Mobile Home Draw [address] [place] [address] 03/05/2024 10:20 AM EDT Laboratory Lab Mobile Phlebotomy [facility] [address] [place] [address] [facility] Mobile Home Draw [address] [place] [address] 03/13/2024 2:00 PM EDT [facility] 200 [place] [address] Francisco Watson MD 200 [facility] [place] [address] 03/19/2024 10:20 AM EDT Laboratory Lab Mobile Phlebotomy [facility] [address] [place] [address] [facility], [facility] Mobile Home Draw [address] [place] [address] 03/24/2024 2:30 PM EDT Office Visit Hematology/Oncolo gy [facility] 200 [place] [address] Ayaka Tatum, JEFF [address] [place] [address] 04/02/2024 10:20 AM EDT Laboratory Lab Mobile Phlebotomy [facility] [address] [place] [address] [facility], [facility] Mobile Home Draw [address] [place] [address] 04/16/2024 10:20 AM EDT Laboratory Lab Mobile Phlebotomy [facility] [address] [place] [address] [facility], [facility] Mobile Home Draw [address] [place] [address] 04/30/2024 10:20 AM EDT Laboratory Lab Mobile Phlebotomy [facility] [address] [place] [address] [facility], [facility] Mobile Home Draw [address] [place] [address] 05/14/2024 10:20 AM EDT Laboratory Lab Mobile Phlebotomy [facility] [address] [place] [address] [facility]mc, [facility] Mobile Home Draw [address] [place] [address] 05/28/2024 10:20 AM EDT Laboratory Lab Mobile Phlebotomy [facility] [address] [place] [address] [facility], [facility] Mobile Home Draw [address] [place] [address] 06/11/2024 10:20 AM EDT Laboratory Lab Mobile Phlebotomy [facility] [address] [place] [address] [facility], [facility] Mobile Home Draw [address] [place] [address] 06/25/2024 10:20 AM EDT Laboratory Lab Mobile Phlebotomy [facility] [address] [place] [address] [facility], [facility] Mobile Home Draw [address] [place] [address] 07/09/2024 10:20 AM EDT Laboratory Lab Mobile Phlebotomy [facility] [address] [place] [address] [facility], [facility] Mobile Home Draw [address] [place] [address] 07/23/2024 10:20 AM EDT Laboratory Lab Mobile Phlebotomy [facility] [address] [place] [address] [facility]mc, [facility] Mobile Home Draw [address] [place] [address] 08/06/2024 10:20 AM EDT Laboratory Lab Mobile Phlebotomy [facility] [address] [place] [address] [facility]mc, [facility] Mobile Home Draw [address] [place] [address] 08/20/2024 9:20 AM EDT Laboratory Lab Mobile Phlebotomy [facility] [address] [place] [address] [facility]mc, [facility] Mobile Home Draw [address] [place] [address] 08/20/2024 10:15 AM EDT Office Visit Ophthalmology, [facility] [address] [facility] [place] [id number] Cody Gonzalez DO 21 [facility] [place] [address] 09/03/2024 10:20 AM EDT Laboratory Lab Mobile Phlebotomy [facility] [address] [place] [address] [facility] Mobile Home Draw [address] [place] [address] 09/17/2024 10:20 AM EDT Laboratory Lab Mobile Phlebotomy [facility] [address] [place] [address] [facility] Mobile Home Draw [address] [place] [address] Scheduled Procedures Name Priority Associated Diagnoses Date/Ti [...] Additional history exists CKD PHOS USE SMARTSET 17055 01/28/202401/03, 07/26/2022, 12/05/2021, Additional history exists Diabetic Foot Exam 03/06/2024 03/06/2023, 0 01/03/2022, 03/02/2021, Additional history exists HbA1c 05/28/2024 11/27/2023, 05/03, 01/28/2023, Additional history exists GFR 06/22/2024 12/23/2023, 11/01, 08/30/2023, Additional history exists Albumin/Creatinine Ratio 07/12/2024 023, 10/01/2022, 09/11/2021, Additional history exists COLONOSCOPY-ANNUAL AGES 18-100 08/09/2024 08/09/2023, 11/07/2022, 11/07/2022, Additional history exists CKD HGB USE SMARTSET 15840 12/23/202412/23, 12/23/2023, 12/19/2023, Additional history exists Lipid [...] this encounter Medical Devices Implanted Type Area Spinner Fixer Device Identifier Shelf Expiration Date Model / Serial / Lot Clareon Iol Aspheric Hydrophobic Acrylic Iol Implanted:Qty: 1 on 04/23/2023 by Cody Gonzalez DO at OR [facility] Lens Left: Eye 11/12/2025 CNA0T0 / [id number] / Viatorr Tips Endoprosthesis 8-10 Mm X 8cm / 2cm Implanted:Qty: 1 on 10/07/2020 by Go Alvarado MD at [facility] Right: Abdomen 03/03/2023 [id number] / / [id number] Description:Viatorr TIPS End oprosthesis 8-10 mm x 8cm / 2cm, Manufactored by [employer] Syr Pf 2ml Embospheres 100-300 - [id number] Implanted:Qty: 1 on 04/18/2021 by Kevin Lim DO at OR [facility] Left: Abdomen [employer] [id number] 11/25/2023 S220GH / / [id number] Syr Pf 2ml Embospheres 100-300 - [id number] Implanted:Qty: 1 on 03/28/2022 at [facility] [employer] [id number] 08/31/2024 S220GH / / [id number] -[id number] Clareon Iol Aspheric Hydrophobic Acrylic Iol Implanted:Qty: 1 on 04/02/2023 by Cody Gonzalez DO at OR [facility] Right: Eye JAZMIN 11/12/2025 CNA0T0 / [id number] / documented as of this encounter Advance Directives Documents on File Type Date Recorded 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 No Full Code 07/22/2014 9:56 PM 07/24/2014 8:18 PM This order reflects the patients wishes and were consensually agreed upon. Question Answer Comments Discussion of Advance Directives occurred with: Patient Does the patient have a Living Will? No Does the patient have Health Care Power of Social Director? No Care Teams Ice Rink Attendant Relationship Specialty Start Date End Date Francisco Cisse MD [address] [place] [address] PCP - General Internal Medicine 09/04/21 documented as of this encounter
--- OUTSIDE RECORDS SUMMARY | 2024-01-25 17:12 | External Medical Summary | Summary of Care ---
Author Name Unknown Organization [facility] Address [address] [facility] [facility] [address] Phone [phone] Care Team Providers Care Wheel Worker Name Role Phone Francisco Cisse MD Primary Care Provider + Reason for Visit * Reason Onset Date Comments Test Results 12/23/2023 Encounter Details Date Type Department Care Team (Late st Contact Info) Description 12/23/2023 Telephone General Internal Medicine [facility] 200 [facility] [place] [address] Francisco Cisse MD 200 [place] [address] Test Results Allergies No known active allergiesdocumented as of [...] mRNA, LNP-s, No Pre serve, 2-Dose Series (eBrevia) 03/08/2021,02/15/2021 HepA Inact/HepB Recomb>=18yrs old 12/04/2019,04/2019,05/20/2019 11/19/2019 [...] Telephone Encounter - Velasquez Thomson LPN - 12/23/2023 3:56 PM EST patient informed and voiced understanding. * Telephone Encounter - Francisco Cisse MD - 12/23/2023 1:24 PM EST MRI ordered on 12/27/23 was arranged by transplant, so I would advise him to contact them to see if still needed. * Telephone Encounter - Velasquez Thomson LPN - 12/23/2023 12:52 PM EST Pt asking if he still needs the radiology imaging done on 12/27/2023 because of his recent MRI at [facility]. Please advise. patient informed and voiced understanding. He has Hospital F/u scheduled with JEFF Lovett at [facility] on 12/26/2023 Pt is agreeable to follow up for labs in one week * Telephone Encounter - Velasquez Thomson LPN - 12/23/2023 12:52 PM EST ----- Message from Francisco Cisse MD sent at 12/23/2023 10:50 AM EST ----- Hgb low at 7.8 but better then last check [facility], how is he feeling? Can he schedule hospital follow up. Recheck cbc 1 week to trend documented in this encounter Plan of Treatment Upcoming Encounters Date Type Department Care Team (Late st Contact Info) Description 12/24/2023 2:30 PM EST Office Visit [facility] [address] [facility] [place] [address] Jennifer Ramires MD 200 [facility] [place] [address] 12/26/2023 9:40 AM EST Office [facility] [place] [address] Robinson Olson CRNP 132 [facility] [place] [address] 12/27/2023 2:30 PM EST Imaging Radiology [facility] 132 [facility] [place] [address] 01/21/2024 10:15 AM EST Cardiac Studies Cardiac Studies, [facility] [address] [facility] [place] [address] 01/30/2024 Hospital Encounter OR [facility], Operating Room, Main Hospital - 4th Floor 400 [facility] [place] [address] Frank Peraza MD 27 [facility] [address] [place] [address] 02/04/2024 11:20 AM EST Office Visit [facility] [address] [place] [address] Robinson Olson [facility] [place] [address] 02/14/2024 2:45 PM EDT Office Visit Urology Karla ZhangLynnette [address] [place] [address] [place] [address] Frank Peraza MD [address] [place] [address] [place] [address] 03/13/2024 2:00 PM EDT Office Visit Dermatology [facility] 200 [facility] [place] [address] Francisco Watson MD 200 [facility] [place] [address] 08/20/2024 10:15 AM EDT Office Visit Ophthalmology, [facility] [address] [place] [address] Cody Gonzalez, 21 [facility] [place] [address] Scheduled Procedures Name Priority Associated Diagnoses Date/Ti [...] Additional history exists CKD PHOS USE SMARTSET 67077 01/28/202401/03, 07/26/2022, 12/05/2021, Additional history exists Diabetic Foot Exam 03/06/2024 03/06/2023, 0 01/03/2022, 03/02/2021, Additional history exists GFR 05/17/2024 11/16/2023, 08/03, 07/24/2023, Additional history exists HbA1c 05/28/2024 11/27/2023, 05/03, 01/28/2023, Additional history exists Albumin/Creatinine Ratio 07/12/2024 023, 10/01/2022, 09/11/2021, Additional history exists COLONOSCOPY-ANNUAL AGES 18-100 08/09/2024 08/09/2023, 11/07/2022, 11/07/2022, Additional history exists CKD HGB USE SMARTSET 89563 12/19/202412/19, 12/06/2023, 12/06/2023, Additional history exists Lipid [...] this encounter Medical Devices Implanted Type Area [employer] Biology Teacher Device Identifier Shelf Expiration Date Model / Serial / Lot Clareon Iol Aspheric Hydrophobic Acrylic Iol Implanted:Qty: 1 on 04/23/2023 by Cody Gonzalez DO at OR [facility] Lens Left: Eye 11/12/2025 CNA0T0 / [id number] / Viatorr Tips Endoprosthesis 8-10 Mm X 8cm / 2cm Implanted:Qty: 1 on 10/07/2020 by Go Alvarado MD at [facility] Right: Abdomen 03/03/2023 [id number] / / [id number] Description:Viatorr TIPS End oprosthesis 8-10 mm x 8cm / 2cm, Manufactored by [employer] Syr Pf 2ml Embospheres 100-300 - [id number] Implanted:Qty: 1 on 04/18/2021 by Kevin Lim DO at OR [facility] Left: Abdomen [employer] [id number] 11/25/2023 S220GH / / [id number] -[id number] Syr Pf 2ml Embospheres 100-300 - [id number] Implanted:Qty: 1 on 03/28/2022 at [facility] [employer] [id number] 08/31/2024 S220GH / / [id number] -[id number] Clareon Iol Aspheric Hydrophobic Acrylic Iol Implanted:Qty: 1 on 04/02/2023 by Cody Gonzalez DO at OR [facility] Right: Eye JAZMIN 11/12/2025 CNA0T0 / [id number] / documented as of this encounter Advance Directives Documents on File Type Date 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 No Full Code 07/22/2014 9:56 PM 07/24/2014 8:18 PM This order reflects the patients wishes and were consensually agreed upon. Question Answer Comments Discussion of Advance Directives occurred with: Patient Does the patient have a Living Will? No Does the patient have Health Care Power of Car Hiker? No Care Teams Wheel Worker Relationship Specialty Start Date End Date Francisco Cisse MD 200 [place] [address] PCP - General Internal Medicine 09/04/21 documented as of this encounter
--- OUTSIDE RECORDS SUMMARY | 2024-01-25 17:12 | External Medical Summary | Summary of Care ---
Author Name Unknown Organization [facility] Address [address] [facility] [address] Phone [phone] Care Team Providers Care Mathematical Engineering Technician Name Role Phone Francisco Cisse MD Primary Care Provider + Reason for Visit * Reason Onset Date Comments Hospital Follow-Up 09/23/2023 Encounter Details Date Type Department Care Team (Late st Contact Info) Description 09/23/2023 Telephone General Internal Medicine [facility] 200 [facility] [place] [address] Francisco Cisse MD 200 [place] [address] Hospital Follow-Up Allergies No known active allergiesdocumented [...] 3 times a day 300 Strip 5 09/27/20 22 Active BD Pen Needle Elizabeth 2nd Gen 32G X 4 MM USE DIRECTED TO ADMINISTER INSULIN AT DINNER DAILY 0 09/25/20 22 Active Triamcinolone Acetonide 0.1 % External Cream (Aristocort) Apply to psoriatic lesions twice a day as needed for 2-3 weeks 453.6 g 0 11/21/20 22 Active Mirtazapine 30 MG Oral Tablet (Remeron)Indicatio ns:Neoplastic (malignant) related fatigue,Depression due to physical illness Take 1 Tablet by mouth at bedtime. 90 Tablet 1 02/16/20 23 Active Lactulose 10 GM Oral Packet (Kristalose)Indica tions:Cirrhosis of liver without ascites, unspecified hepatic cirrhosis type (HCC) Take 1 Packet by mouth in the morning and 1 Packet before bedtime. 60 Packet 5 03/06/20 23 Active Multivitamin Men 50+ Oral Tablet Take [...] directed. Every 14 days 2 Each 5 05/28/20 23 Active Probiotic (Lactobacillus) Oral Capsule 1 Capsule. 0 05/17/20 23 Active oxyCODONE HCl 5 MG Oral Tablet (Oxy IR)Indications:Oth er closed fracture of twelfth thoracic vertebra, initial encounter (HCC) Take 1 Tablet by mouth every 6 hours as needed for Pain, Severe. 28 Tablet 0 07/12/20 23 Active Furosemide 20 MG Oral Tablet (Lasix)Indications :Cirrhosis of liver with ascites, unspecified hepatic cirrhosis type (HCC) Take 2 Tablets by mouth in the morning. 180 Tablet 3 07/30/20 23 Active oxygen IN GAS Use 2 L/min(Oxygen) as directed at bedtime. 0 Active Albumin Human 25 % Intravenous SolutionIndication s:Cirrhosis of liver with ascites, unspecified hepatic cirrhosis type (HCC) 25Gm before and after paracentesis 100 mL 0 08/22/20 23 Active Additional Information Patient not taking.Reported on 12/06/2023 Metoclopramide HCl 5 MG Oral Tablet (Reglan) One tab as often as 3 times a day, if needed for nausea 90 Tablet 3 08/30/20 23 Active Pantoprazole Sodium 40 MG Oral Tablet Delayed Release (Protonix)Indicati ons:GAVE (gastric antral vascular ectasia) Take 1 Tablet by mouth in the morning and 1 Tablet in the evening. 60 Tablet 5 10/02/20 23 Active Finasteride 5 MG Oral Tablet (Proscar) Take 1 Tablet by mouth in the morning. 90 Tablet 1 09/02/20 Active Allopurinol 100 MG Oral Tablet (Zyloprim)Indicati ons:Gout of big toe Take 2 Tablets by mouth in the morning. 180 Tablet 2 07/30/20 23 023 Discontinued(Re fill) Lantus 100 UNIT/ML Subcutaneous Solution Inject 22 Units under the skin every evening. With dinner 0 07/01/20 23 023 Discontinued(Re fill) rifAXIMin 550 MG Oral Tablet (Xifaxan)Indicatio ns:Cirrhosis of liver (HCC),Hepatic encephalopathy (HCC) Take 1 Tablet by mouth in the morning and 1 Tablet before bedtime. 180 Tablet 5 09/02/20 23 023 Discontinued(Re fill) DULoxetine HCl 30 MG Oral Capsule Delayed Release Particles (Cymbalta)Indicati ons:Other closed fracture of twelfth thoracic vertebra with delayed healing, subsequent encounter Take 1 Capsule by mouth in the morning for 7 days. Take for 1 week. Then increase to the 60mg capsule.. 7 Capsule 0 09/06/20 23 023 Discontinued Hospital, Clinic, or Other Facility Administered [...] mRNA, LNP-s, No Pre serve, 2-Dose Series ([employer] [facility]) 03/08/2021,02/15/2021 HepA Inact/HepB Recomb>=18yrs old 12/04/2019,04/2019,05/20/2019 11/19/2019 PPD 06/18/2017, 3,01/09/2012,0306/2011 Pneumococcal Conjugate Vacc, 13 Valent (Prevnar) 05/01/2017 Pneumococcal Polysaccharide PPV23 (Pneumovax) 08/28/2022,10/25/2015,07/14/2012 Season Influenza, Quad, PF, Adjuvanted, 65+ Yrs, IM (FLUAD) 10/07/2020(Deferred: Patient Refused - pt says he already had his shot last month at [facility] Handy Lyons and Mckinley Cboian made aware) Seasonal Influenza Virus Vac cine, Unspecified Formulation 09/15/2021,09/01/2019,09/04/2017,08/03,09/13/2014,08/10/2013,10/07/20 12,09/03/2011 Seasonal Influenza, PF, 6 M & above, IM , (FluLaval or Fluzone) 09/04/2017 Seasonal Influenza, Quadriva lent Hd, 65+ [...] Telephone Encounter - Francisco Cisse MD - 09/23/2023 2:50 PM EDT Can discuss at hospital f/u * Telephone Encounter - Mukul Delgado RN - 09/23/2023 2:41 PM EDT Patient discharged today from [facility] after treatment for pancytopenia and hepatic encephalopathy. Discharging physician recommends at [facility] in one week to determine if transfusion is needed/ any further recommendations by hematology. Thank you documented in this encounter Plan of Treatment Upcoming Encounters Date Type Department Care Team (Late st Contact Info) Description 12/24/2023 2:30 PM EST Office Visit Hematology/Oncology [facility] [place] [address] [place] [address] Jennifer Ramires MD [address] [place] [address] 12/26/2023 9:40 AM EST Office Visit Family [facility] 132 [facility] [place] [address] Robinson Olson CRNP [address] [place] [address] 12/27/2023 2:30 PM EST Imaging Radiology [facility] 1st [facility] [address] [place] [address] 01/21/2024 10:15 AM EST Cardiac Studies Cardiac Studies, [facility] [address] [address] 01/30/2024 Hospital Encounter OR [facility], Operating Room, [facility] - 4th Floor [address] [place] [address] Frank Peraza MD [address] [place] [address] [place] [address] 02/04/2024 11:20 AM EST Office Visit Family Practice [facility] [address] [place] [address] Robinson Olson CRNP [address] [place] [address] 02/14/2024 2:45 PM EDT Office Visit Urology Lynnette Fitzpatrick [address] [place] [address] [place] [address] Frank Peraza MD [address] [place] [address] [place] [address] 03/13/2024 2:00 PM EDT [facility] [address] [place] [address] Francisco Watson MD [address] [place] [address] 08/20/2024 10:15 AM EDT Office Visit Ophthalmology, [facility] [address] [place] [address] Cody Gonzalez, DO 21 [facility] [place] [id number] Scheduled Procedures Name Priority Associated Diagnoses Date/Ti [...] Additional history exists CKD PHOS USE SMARTSET 06371 01/28/202401/03, 07/26/2022, 12/05/2021, Additional history exists Diabetic Foot Exam 03/06/2024 03/06/2023, 0 01/03/2022, 03/02/2021, Additional history exists GFR 05/17/2024 11/16/2023, 08/03, 07/24/2023, Additional history exists HbA1c 05/28/2024 11/27/2023, 05/03, 01/28/2023, Additional history exists Albumin/Creatinine Ratio 07/12/2024 023, 10/01/2022, 09/11/2021, Additional history exists COLONOSCOPY-ANNUAL AGES 18-100 08/09/2024 08/09/2023, 11/07/2022, 11/07/2022, Additional history exists CKD HGB USE SMARTSET 14896 12/23/202412/23, 12/23/2023, 12/19/2023, Additional history exists Lipid [...] this encounter Medical Devices Implanted Type Area Um Specialist Device Identifier Shelf Expiration Date Model / Serial / Lot Clareon Iol Aspheric Hydrophobic Acrylic Iol Implanted:Qty: 1 on 04/23/2023 by Cody Gonzalez DO at [facility] Lens Left: Eye 11/12/2025 CNA0T0 / [id number] / Viatorr Tips Endoprosthesis 8-10 Mm X 8cm / 2cm Implanted:Qty: 1 on 10/07/2020 by Go Alvarado MD at [facility] Right: Abdomen 03/03/2023 [id number] / / [id number] Description:Viatorr TIPS End oprosthesis 8-10 mm x 8cm / 2cm, Manufactored by [employer] Syr Pf 2ml Embospheres 100-300 - [id number] Implanted:Qty: 1 on 04/18/2021 by Kevin Lim DO at [facility] Left: Abdomen [employer] [id number] 11/25/2023 S220GH / / [id number] -[id number] Syr Pf 2ml Embospheres 100-300 - [id number] Implanted:Qty: 1 on 03/28/2022 at [facility] [employer] [id number] 08/31/2024 S220GH / / [id number] -[id number] Clareon Iol Aspheric Hydrophobic Acrylic Iol Implanted:Qty: 1 on 04/02/2023 by Cody Gonzalez DO at [facility] Right: Eye JAZMIN 11/12/2025 CNA0T0 / [id number] / documented as of this encounter Advance Directives Documents on File Type Date Recorded Patient Territory Service Representative Expl anation Advance Directives and Living Will 12/11/2022 ADVANCE DIRECTIVE / LIVING WILL LIVING WILL Power of Piano Accompanist 12/11/2022 POWER OF A TTORNEY Latest Code [...] the patient have Health Care Power of Piano Accompanist? No Full Code 07/22/2014 9:56 PM 07/24/2014 8:18 PM This order reflects the patients wishes and were consensually agreed upon. Question Answer Comments Discussion of Advance Directives occurred with: Patient Does the patient have a Living Will? No Does the patient have Health Care Power of Piano Accompanist? No Care Teams Mathematical Engineering Technician Relationship Specialty Start Date End Date Francisco Cisse MD [address] [place] [address], [place] [address] PCP - General Internal Medicine 09/04/21 documented as of this encounter
--- OUTSIDE RECORDS SUMMARY | 2024-01-25 17:12 | External Medical Summary ---
Author Name Unknown Address Unknown Organization [id number]:[facility] [place] 100 [facility] [address] Laboratory Report Ordering Provider Test Date Status NEELAM RICCI 12/26/2023 11:39:00 Final Observation Date Value Abnormality Reference (Units ) Status SYNC LEUKOCYTES IN BLOOD BY AUTOMATED COUNT 12/26/2023 11:39:00 3.32 Below low normal 4.00-10.80 (K/uL) Final Segs 12/26/2023 11:39:00 65.1 40.0-75.0 (%) Final Lymphs % 12/26/2023 11:39:00 19.9 18.0-42.0 (%) Final Monos 12/26/2023 11:39:00 6.3 1.0-11.0 (%) Final Eosinophils 12/26/2023 11:39:00 7.8 Above high normal 0.0-6.0 (%) Final Basos 12/26/2023 11:39:00 0.6 0.0-2.0 (%) Final Immature Granulocyte, Percent 12/26/2023 11:39:00 0.3 0.0-2.0 (%) Final Absolute Segs 12/26/2023 11:39:00 2.16 1.80-7.70 (K/uL) Final Lymphs, absolute 12/26/2023 11:39:00 0.66 Below low normal 1.00-4.80 (K/ul) Final Monos, Abs 12/26/2023 11:39:00 0.21 0.00-1.10 (K/uL) Final Eos, Abs 12/26/2023 11:39:00 0.26 0.00-0.70 (K/uL) Final Basos, Abs 12/26/2023 11:39:00 0.02 0.00-0.20 (K/uL) Final Immature Granulocytes, Number 12/26/2023 11:39:00 0.01 0.00-0.20 (K/uL) Final Performing Location [facility] [place] [facility] [place] [address]
--- OUTSIDE RECORDS SUMMARY | 2024-01-25 17:12 | External Medical Summary ---
Author Name Unknown Address Unknown Organization [id number]:[facility]ORY [facility] [place] - [address] [facility] [address] [facility] [address] Laboratory Report Ordering Provider Test Date Status NEELAM RICCI 12/26/2023 11:39:00 Final Observation Date Value Abnormality Reference (Units ) Status Ovalocytes [Presence] in Blood by Light microscopy 12/26/2023 11:39:00 Moderate Abnormal None Seen Final Schistocytes 12/26/2023 11:39:00 Few Abnormal None Seen Final Dacrocytes [Presence] in Blood by Light microscopy 12/26/2023 11:39:00 Moderate Abnormal None Seen Final Performing Location LABORATORY C - [address] [facility] [address]
--- OUTSIDE RECORDS SUMMARY | 2024-01-25 17:12 | External Medical Summary | Summary of Care ---
Author Name Unknown Organization [facility] Address [address] [address] Phone [phone] Care Team Providers Care [employer]ian [employer] Name Role Phone Francisco Cisse MD Primary Care Provider + Encounter Details Date Type Department Care Team (Late st Contact Info) Description 12/13/2023 Orders Only General Internal Medicine [facility] [address] [facility] [place] [address] Francisco [facility] [id number] Allergies No known active allergiesdocumented as of [...] mRNA, LNP-s, No Pre serve, 2-Dose Series ([employer]) 03/08/2021,02/15/2021 HepA Inact/HepB Recomb>=18yrs old 12/04/2019,04/2019,05/20/2019 11/19/2019 PPD 06/18/2017, 3,01/09/2012,0306/2011 Pneumococcal Conjugate Vacc, 13 Valent (Prevnar) 05/01/2017 Pneumococcal Polysaccharide PPV23 (Pneumovax) 08/28/2022,10/25/2015,07/14/2012 Season Influenza, Quad, PF, Adjuvanted, 65+ Yrs, IM (FLUAD) 10/07/2020(Deferred: Patient Refused - pt [facility] Handy Lyons and Mckinley Cobian [...] Description 12/27/2023 2:30 PM EST Imaging Radiology [facility] [address] [place] [address] 12/30/2023 11:00 AM EST Home Visit Care Coordination and Integration [address] [place] [address] Kriss Mays, Community Health Supervisor Packing Room [address] [place] [address] 01/07/2024 8:40 AM EST Laboratory Lab Mobile Phlebotomy [facility] [address] [place] [address] [facility] Mobile Home Draw [address] [place] [address] 01/21/2024 8:40 AM EST Laboratory Lab Mobile Phlebotomy [facility] [address] [place] [address] [facility], [facility] Mobile Home Draw [address] [place] [address] 01/21/2024 10:15 AM EST Cardiac Studies Cardiac Studies, [facility] [address] [facility] [place] [address] 01/30/2024 2:05 PM EST Hospital Encounter OR [facility], Operating Room, [facility] - 4th Floor [address] [facility] [place] [address] Frank Peraza MD [address] [address] [place] [address] 01/30/2024 2:05 PM EST - 01/30/2024 3:07 PM EST Surgery OR GL, Operating Room, [facility] - 4th Floor [address] [place] [address] Frank Peraza MD [address] [place] [address] [place] [address] CYSTOURETHROSCOPY WITH FULGURATION MEDIUM BLADDER TUMOR 02/04/2024 8:40 AM EST Laboratory Lab Mobile Phlebotomy [facility] [address] [place] [address] [facility] Mobile Home Draw [address] [place] [address] 02/14/2024 2:45 PM EDT Office Visit Urology Lynnette Fitzpatrick [address] [place] [address] Frank Peraza MD [address] [place] [address] 02/18/2024 8:40 AM EDT Laboratory Lab Mobile Phlebotomy [facility] [address] [place] [address] [facility] Mobile Home Draw [address] [place] [address] 03/03/2024 8:40 AM EDT Laboratory Lab Mobile Phlebotomy [facility] [address] [place] [address] [facility] Mobile Home Draw [address] [place] [address] 03/13/2024 2:00 PM EDT Office Visit Dermatology [facility] [place] [address] [facility] [place] [address] Francisco Watson MD [address] [facility] [place] [id number] 03/17/2024 8:40 AM EDT Laboratory Lab Mobile Phlebotomy [facility] [address] [place] [address] [facility] [place] [facility], [facility] Mobile Home Draw [address] [place] [address] 03/24/2024 2:30 PM EDT Office Visit Hematology/Oncology [facility] [address] [place] [address] Ayaka Tatum CRNP [address] [place] [address] 03/30/2024 12:00 PM EDT Office Visit Family Practice [facility] [address] [place] [address] Kristen Vences DO [address] [place] [address] 03/31/2024 8:40 AM EDT Laboratory Lab Mobile Phlebotomy [facility] [address] [place] [address] [facility], [facility] Mobile Home Draw [address] [place] [address] 04/07/2024 10:00 AM EDT Office Visit Gastroenterology, [facility] 132 [place] [address] Lamar Tatum CRNP [address] [place] [address] 04/14/2024 8:40 AM EDT Laboratory Lab Mobile Phlebotomy [facility] [address] [place] [address] [facility], [facility] Mobile Home Draw [address] [place] [address] 04/28/2024 8:40 AM EDT Laboratory Lab Mobile Phlebotomy [facility] [address] [place] [address] [facility] Mobile Home Draw [address] [place] [address] 05/12/2024 8:40 AM EDT Laboratory Lab Mobile Phlebotomy [facility] [address] [place] [address] [facility] Mobile Home Draw [address] [place] [address] 05/26/2024 8:40 AM EDT Laboratory Lab Mobile Phlebotomy [facility] [address] [place] [address] [facility] Mobile Home Draw [address] [place] [address] 06/09/2024 8:40 AM EDT Laboratory Lab Mobile Phlebotomy [facility] [address] [place] [address] [facility] Mobile Home Draw [address] [place] [address] 06/23/2024 8:40 AM EDT Laboratory Lab Mobile Phlebotomy [facility] [address] [place] [address] [facility] Mobile Home Draw [address] [place] [address] 07/07/2024 8:40 AM EDT Laboratory Lab Mobile Phlebotomy [facility] [address] [place] [address] [facility] Mobile Home Draw [address] [place] [address] 07/21/2024 8:40 AM EDT Laboratory Lab Mobile Phlebotomy [facility] [address] [place] [address] [facility] Mobile Home Draw [address] [place] [address] 08/04/2024 8:40 AM EDT Laboratory Lab Mobile Phlebotomy [facility] [address] [place] [address] [facility] [place], [facility] Mobile Home Draw [address] [place] [address] 08/18/2024 8:40 AM EDT Laboratory Lab Mobile Phlebotomy [facility] [address] [place] [address] [facility] [place], [facility] Mobile Home Draw [address] [place] [address] 08/20/2024 10:15 AM EDT Office Visit Ophthalmology, [address] [address] Cody Gonzalez DO [address] [place] [address] 09/01/2024 8:40 AM EDT Laboratory Lab Mobile Phlebotomy [facility] [address] [place] [address] [facility] [place], [facility] Mobile Home Draw [address] [place] [address] 09/15/2024 8:40 AM EDT Laboratory Lab Mobile Phlebotomy [facility] [address] [place] [address] [facility] [place] [facility], [facility] Mobile Home Draw [address] [place] [address] Scheduled Procedures Name Priority Associated Diagnoses Date/Ti [...] Additional history exists CKD PHOS USE SMARTSET 17217 01/28/202401/03, 07/26/2022, 12/05/2021, Additional history exists Diabetic Foot Exam 03/06/2024 03/06/2023, 0 01/03/2022, 03/02/2021, Additional history exists HbA1c 05/28/2024 11/27/2023, 05/03, 01/28/2023, Additional history exists GFR 06/22/2024 12/23/2023, 11/01, 08/30/2023, Additional history exists Albumin/Creatinine Ratio 07/12/2024 023, 10/01/2022, 09/11/2021, Additional history exists COLONOSCOPY-ANNUAL AGES 18-100 08/09/2024 08/09/2023, 11/07/2022, 11/07/2022, Additional history exists CKD HGB USE SMARTSET 32014 12/23/202412/23, 12/23/2023, 12/19/2023, Additional history exists Lipid [...] this encounter Medical Devices Implanted Type Area Cream Ripener Device Identifier Shelf Expiration Date Model / Serial / Lot Clareon Iol Aspheric Hydrophobic Acrylic Iol Implanted:Qty: 1 on 04/23/2023 by Cody Gonzalez DO at OR [facility] Lens Left: Eye 11/12/2025 [id number] / [id number] / Viatorr Tips Endoprosthesis 8-10 Mm X 8cm / 2cm Implanted:Qty: 1 on 10/07/2020 by Go Alvarado MD at [facility] Right: Abdomen 03/03/2023 [id number] / / [id number] Description:Viatorr TIPS End oprosthesis 8-10 mm x 8cm / 2cm, Manufactored by [employer] Syr Pf 2ml Embospheres 100-300 - [id number] Implanted:Qty: 1 on 04/18/2021 by Kevin Lim DO at OR [facility] Left: Abdomen [employer] [id number] 11/25/2023 [id number] / / [id number] Syr Pf 2ml Embospheres 100-300 - [id number] Implanted:Qty: 1 on 03/28/[address] [facility] [employer] [id number] 08/31/2024 S220GH / / [id number] Clareon Iol Aspheric Hydrophobic Acrylic Iol Implanted:Qty: 1 on 04/02/2023 by Cody Gonzalez DO at OR [facility] Right: Eye JAZMIN 11/12/2025 [id number] / [id number] / documented as of this encounter [...] interpreted or resulted by a [facility] or [employer] contracted radiologist. Francisco Cisse MD RAD MRI-MRA documented in this encounter Advance Directives Documents on File Type Date Recorded Patient Spa Host Expl anation Advance Directives and Living Will 12/11/2022 ADVANCE DIRECTIVE / LIVING WILL LIVING WILL Power of Accounts Payable Specialist 12/11/2022 POWER OF A TTORNEY Latest [...] the patient have Health Care Power of Accounts Payable Specialist? No Full Code 07/22/2014 9:56 PM 07/24/2014 8:18 PM This order reflects the patients wishes and were consensually agreed upon. Question Answer Comments Discussion of Advance Directives occurred with: Patient Does the patient have a Living Will? No Does the patient have Health Care Power of Accounts Payable Specialist? No Care Teams Electrician Aircraft Relationship Specialty Start Date End Date Francisco Cisse MD [address] [place], [place] [address] PCP - General Internal Medicine 09/04/21 documented as of this encounter
--- OUTSIDE RECORDS SUMMARY | 2024-01-25 17:12 | External Medical Summary | Summary of Care ---
Author Name Unknown Organization [facility] Address [address] [address] Phone [phone] Care Team Providers Care Warp Drawer Name Role Phone Francisco Cisse MD Primary Care Provider + Reason for Visit * Reason Comments Follow Up Hospital discharge Encounter Details Date Type Department Care Team (Late st Contact Info) Description 12/24/2023 2:30 PM EST Office Visit Hematology/Oncology [facility] [address] [facility] [place] [address] Jennifer Ramires MD [address] [facility] [place] [address] Iron deficiency anemia, unspecified iron deficiency anemia type*; Pancytopenia (HCC); GAVE (gastric antral vascular ectasia); Liver cell carcinoma (HCC); Prostate cancer (HCC); Portal vein thrombosis Allergies No known active allergiesdocumented as of [...] had his shot last month at [facility] Handy Lyons and Mckinley Cobian [...] Sign Reading Time Taken Comments Blood Pressure 142/57 12/24/2023 2:22 PM EST Pulse 73 12/24/2023 2:22 PM EST Temperature 36.9 C (98.5 F) 12/24/2023 2:22 PM ES T Respiratory Rate 16 12/24/2023 2:22 PM EST Oxygen Saturation 99% 12/24/2023 2:22 PM EST Inhaled Oxygen Concentration - - Weight 83.2 kg (183 lb 6.4 oz) 12/24/2023 2:22 P M EST Height 171 cm (5' 7.32") 12/24/2023 2:22 PM EST Body Mass Index 28.45 12/24/2023 2:22 PM EST documented in this encounter Functional [...] as of this encounter Progress Notes * Jennifer Ramires MD - 12/24/2023 2:27 PM EST Outpatient Consult Note Data Source: Patient, Epic record. Data Source: Patient, Epic record. 12/24/2023 2:27 PM Luis Hale [id number] 73 year old Patient Encounter: HEMATOLOGY/ONCOLOGY [facility] Cancer Diagnosis: Pancytopenia UDAY HCC Portal vein thrombosis History of prostate cancer Current Treatment: Observation Previous Treatment: TIPs was completed on 10/07/20. Revision Jan 2021. Left hepatic lobe LIRADS 5 lesion bland embolization on 04/18/2021 Completed radiation therapy to the prostate 04/05/21 Received his final Eligard injection in January of 2022 Right hepatic lobe mass bland embolization 02/21/22 Frequent blood transfusion. He was also treated multiple times with the iron infusion Oncologic History : 73-year-old male with complicated past medical history including DM II, GAVE, cirrhosis s/p TIPS, esophageal varices, psoriasis, FOFANA, CKD III, prostate cancer, HCC, portal vein thrombosis was referred to ct for evaluation of pancytopenia portal vein thrombosis. Patient was diagnosed of prostate cancer and biopsy done which is consistent with adenocarcinoma. [place] score was 3+3 and PSA was 15.26. He was treated with radiation therapy which was completed April 2021 For liver cancer he was evaluated by [...] for bland embolization left hepatic lobe at [facility] which was done on 04/18/2021 He also has history of anemia and frequent blood transfusion. He was also treated multiple times with the iron infusion. Last iron transfusion was in 01/2021 Last ultrasound of the abdomen was done on 05/03/2021 and shows Patent TIPS without evidence of stenosis, nonocclusive left portal vein thrombus, Left hepatic lobe mass. He also has ascites and need frequent paracentesis on every 5-6 weeks basis He denies smoking and drinking. Family history significant for mother who had to lung cancer. One daughter has thyroid cancer, cervical cancer and some other genital cancer. Father was alcoholic and had liver disease and psoriasis. An ultrasound of the abdomen was done [...] portal hypertension, including moderate ascites and splenomegaly. On 03/01/22 pt developed chest pain w/ exertion. He was admitted to [facility] and tx for anemia. He was having [...] Estimated blood loss was minimal. Interval History: Patient was recently admitted to the hospital with hematuria received blood transfusion. He was seen by Dr. Peraza on 12/19/2023 and had cystoscopy done and noted to have mobile debris andabnormal, friable and bleeding mucosa at the left bladder neck without clear papillary tumor. Detrusor noted to have grade 3 trabeculation. Now overall clinically he is feeling better without any new symptoms complain. No more hematuria. He denies any dizziness, headache, chest pain, palpitation abdominal pain or distention, nausea, vomiting, fever, night sweats. LABS/IMAGING: Results for orders placed or performed in visit on 12/23/23 ALPHA-FETOPROTEIN TUMOR MARKER Result Value Ref Range Alpha-Fetoprotein Tumor Marker <1.8 0.0 - 8.3 ng/mL COMPREHENSIVE METABOLIC PANEL Result Value Ref Range BUN 19 6 - 20 mg/dL Creatinine 1.4 (H) 0.6 - 1.2 mg/dL Estimated Glomerular Filtration Rate 53 (L) >=60 mL/min Sodium 141 135 - 146 mmol/L Potassium 4.5 3.5 - 5.1 mmol/L Chloride 112 (H) 98 - 107 mmol/L CO2 21 (L) 22 - 32 mmol/L Anion Gap 8 7 - 15 mmol/L Glucose 167 (H) 70 - 120 mg/dL Albumin 3.1 (L) 3.8 - 5.0 g/dL AST 29 10 - 50 U/L Alkaline Phosphatase 189 (H) 35 - 130 U/L Bilirubin, Total 1.7 (H) <=1.2 mg/dL Calcium 8.0 (L) 8.4 - 10.2 mg/dL Protein 6.3 6.0 - 8.3 g/dL ALT 20 10 - 50 U/L PT INR Result Value Ref Range Prothrombin Time 15.5 (H) 11.6 - 15.2 seconds INR 1.2 0.8 - 1.2 IRON SCREEN, INCLUDING TIBC Result Value Ref Range Iron 59 45 - 176 ug/dL Iron Binding Capacity 243 (L) 250 - 425 ug/dL Transferrin Saturation Percent 24 15 - 55 % FERRITIN Result Value Ref Range Ferritin 42 30 - 400 ng/mL PSA Result Value Ref Range PSA <0.02 <4.10 ng/mL URINALYSIS, REFLEX TO MICROSCOPIC Result Value Ref Range Color, Urine Red (A) Light Yellow, Yellow, Dark Yellow Clarity, Urine Turbid (A) Clear Glucose, Urine Negative Negative mg/dL Bilirubin, Urine Small (A) Negative Ketone, Urine Trace (A) Negative mg/dL Specific [place], Urine 1.025 1.003 - 1.030 Blood, Urine Large (A) Negative pH, Urine 5.5 5.0 - 7.5 Units Protein, Urine >=300 (A) Negative mg/dL Urobilinogen, Urine 0.2 0.2, 1.0 mg/dL Nitrite, Urine Negative Negative Esterase, Urine Negative Negative CBC Result Value Ref Range WBC 3.14 (L) 4.00 - 10.80 K/uL RBC 2.53 4.50 - 5.25 M/uL HGB 8.0 (L) 14.0 - 16.8 g/dL HCT 24.9 (L) 40.0 - 48.4 % MCV 98.4 82.0 - 99.5 fL MCH 31.6 27.0 - 34.0 pg MCHC 32.1 32.0 - 36.0 g/dL RDW 18.8 11.5 - 15.5 % PLT 92 (L) 140 - 400 K/uL MPV 11.8 6.6 - 11.1 fL DIFFERENTIAL, AUTOMATED Result Value Ref Range WBC 3.14 (L) 4.00 - 10.80 K/uL Neutrophils % 63.0 40.0 - 75.0 % Lymphocytes % 22.9 18.0 - 42.0 % Monocytes % 6.1 1.0 - 11.0 % Eosinophils % 6.7 (H) 0.0 - 6.0 % Basophils % 1.3 0.0 - 2.0 % Absolute Neutrophils 1.98 1.80 - 7.70 K/uL Absolute Lymphocytes 0.72 (L) 1.00 - 4.80 K/ul Absolute Monocytes 0.19 0.00 - 1.10 K/uL Absolute Eosinophils 0.21 0.00 - 0.70 K/uL Absolute Basophils 0.04 0.00 - 0.20 K/uL DIFFERENTIAL, TECHNOLOGIST REVIEW Result Value Ref Range nRBCs Schistocytes Few (A) None Seen MICROSCOPIC EXAM, URINE Result Value Ref Range RBC, Urine 50+ (A) 0 - 2 /HPF WBC, Urine 0-2 0 - 2 /HPF Bacteria, Urine 0-25 0 - 25 /HPF *Note: Due to a large number of results and/or encounters for the requested time period, some results have not been displayed. A complete set of results can be found in Results Review. Ferritin was 42 and hemoglobin level was 8 and platelet counts 92,000. And platelet count 08380 andplatelet count 52403. REVIEW OF SYSTEMS: General: No Fever, chills, night sweats, or weight loss. HEENT: No change in visual acuity, blurred or double vision. No epistaxis, facial pain, nasal discharge or change in hearing. Denies dysphagia, no muscosal ulceration, or sores noted. Cardiovascular: No chest pain, PRITCHETT, or palpitations Respiratory: No shortness of breath, cough, hemoptysis, or pleuritic chest pain Gastrointestinal: No abdominal pain, nausea, vomiting, diarrhea, rectal pain or bleeding Genitourinary: Denies Hematuria or dysuria Musculoskeletal: Generalized weakness and fatigue Psychiatric: No vegetative signs of depression Endocrine: No symptoms of hypothyroidism or hyperglycemia Hematologic: No bleeding or lymph nodes noted As mentioned above, all of the systems were reviewed in full and are unremarkable. Past Medical History: Diagnosis Date Acquired thrombocytopenia (HCC) 09/05/2017 Allergic rhinitis Anemia Anxiety and depression Aortic valve sclerosis 02/01/2023 Benign neoplasm of colon 04/16/2013 COLONOSCOPY FLEXIBLE PROXIMAL DIAGNOSTIC performed by Salvador Lopez MD at [facility], adenomatous polyps repeat colonoscopy in 3 year [...] cancer (HCC) 03/02/2021 Pulmonary hypertension (HCC) 02/01/2023 Current Outpatient Medications Medication Sig Dispense Refill Tylenol 325 MG Oral Capsule (Acetaminophen) Take 650 mg by mouth every 8 hours as needed for Pain (fever). MobiKwik In Vitro Strip (Glucose Blood) Use to [...] 1 Tablet before bedtime. 180 Tablet 5 Current Facility-Administered Medications Medication Dose Route Frequency Provider Last Rate Last Admin Albuterol Sulfate (Proventil) (2.5 MG/3ML) 0.083% inhalation solution 2.5 mg 2.5 mg Nebulizer PRN William Jennings PA-C Albuterol Sulfate (Proventil) (5 MG/ML) 0.5% *conc* inhalation solution 2.5 mg 2.5 mg Nebulizer William Palencia PA-C 2.5 mg at 03/20/23 0913 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 Tobacco Use Smoking status: Never Smokeless tobacco: Never Vaping Use Vaping Use: Never used Substance Use Topics Alcohol use: Not Currently Comment: 1971 Drug use: No Review of patient's allergies indicates: No Known Allergies PHYSICAL EXAMINATION: General Appearance: Weak and pale appearing patient in no acute distress BP 142/57 (BP Site: Left Arm, BP Position: Sitting, BP Cuff Size: Regular) | Pulse 73 | Temp 36.9 C (98.5 F) (Tympanic) | Resp 16 | Ht 1.71 m (5' 7.32") | Wt 83.2 kg (183 lb 6.4 oz) | SpO2 99% | BMI 28.45 kg/m | BSA 1.99 m Vitals reviewed. HEENT: No oral or pharyngeal masses, ulceration or thrush noted, no sinus tenderness. Neck is supple with no thyromegaly or JVD noted. Lymph Nodes: No lymphadenopathy noted in the occipital, pre and post auricular, cervical, supra andinfraclavicular, axillary, epitrochlear, inguinal, and popliteal region. Lungs/Thorax: Clear to auscultation, no accessory muscles of respiration being used. Heart: Regular rate and rhythm, normal S1, S2 Abdomen: Soft, nontender, bowel sounds present, no appreciable hepatosplenomegaly, no palpable masses Extremeties: Good pulses bilaterally, bilateral lower extremity edema ASSESSMENT: 73-year-old male with complicated past medical history including DM II, GAVE, cirrhosis s/p TIPS, esophageal varices, psoriasis, FOFANA, CKD III, prostate cancer, HCC, portal vein thrombosis was referred for evaluation of pancytopenia and portal vein thrombosis. History is also significant for iron deficiency anemia and treated with the iron infusion. He was recently admitted to the hospital with the hematuria and received blood transfusion. Now clinically he is stable. He also had cystoscopy done by Dr. Peraza. His blood counts are stable. He continues to be at risk for further bleeding. I will arrange for CBC to be done on every 2 weeksbasis and receive blood transfusion whenever hemoglobin is 7 or less. Discussed with the patient about diagnosis reviewed all the available blood test result with him. After discussion he agreed to signed the consent form for the blood transfusion. PLAN: As above. He will return clinic for follow-up in 3 months. The patient voiced understanding of all of the above. All questions and concerns were addressed in an apparently satisfactory manner. Jennifer Ramires MD (This note was completed using the dictation program Fluency Direct. As such, there may be misspellings, word substitutions, or other variations that should not change the essence of the clinical content of this encounter note. If there is need for further clarification, please direct questions to me.) documented in this encounter Nursing Notes * Kylie Alexander, [facility] - 12/24/2023 2:23 PM EST Patient identifed by name and birthdate Do you have any concerns about pain management for today's visit? No Living Will or Advance Directive for Health Care as noted on the problem list. [facility] is a way you can talk to your provider on line through e-mail. Would you like to sign up? I can activate it for you? ALREADY ACTIVE Filed Vitals: 12/24/23 1422 BP: 142/57 Pulse: 73 Resp: 16 Temp: 36.9 C (98.5 F) TempSrc: Tympanic SpO2: 99% Weight: 83.2 kg (183 lb 6.4 oz) Height: 1.71 m (5' 7.32") Patient was instructed to not get up on the exam table/exam chair until directed and assisted by their provider; patient is to remain seated in the chair/ wheelchair/ exam table/ exam chair for fall prevention and safety reasons. Patient is aware to have assistance to step down off exam table/exam chair with personnel. Patient voiced full comprehension of instructions. documented in this encounter Plan of Treatment Upcoming Encounters Date Type Department Care Team (Latest Contact Info) Description 12/26/2023 9:40 AM EST Office Visit Family Practice [facility] [address] [place] [address] Robinson Olson CRNP [address] [place] [address] 12/26/2023 10:20 AM EST Laboratory Lab Mobile Phle[facility]omy [facility] [address] [place] [address] [facility] Mobile Home Draw [address] [place] [address] 12/27/2023 2:30 PM EST Imaging Radiology [facility] [address] [place] [address] 01/09/2024 10:20 AM EST Laboratory Lab Mobile Phlebot[facility] [address] [place] [address] [facility] Mobile Home Draw [address] [place] [address] 01/21/2024 10:15 AM EST Cardiac Studies Cardiac Studies, [facility] [address] [place] [address] 01/23/2024 10:20 AM EST Laboratory Lab Mobile [facility]bot[facility] [address] [place] [address] [facility] Mobile Home Draw [address] [place] [address] 01/30/2024 2:05 PM EST Hospital Encounter OR [facility], Operating Room, [facility] - 4th Floor [address] [facility] [place] [address] Frank Peraza MD [address] [place] [address] [place] [address] 01/30/2024 2:05 PM EST - 01/30/2024 3:07 PM EST Surgery OR [facility], Operating Room, [facility] - 4th Floor [address] [facility] [place] [address] Frank Peraza MD [address] [place] [address] CYSTOURETHROSCOPY WITH FULGURATION MEDIUM BLADDER TUMOR 02/04/2024 11:20 AM EST Office Visit Family Practice [facility] [address] [place] [address] Robinson Olson CRNP [address] [place] [address] 02/06/2024 10:20 AM EST Laboratory Lab Mobile Phlebotomy [facility] [address] [place] [address] [facility] Mobile Home Draw [address] [place] [address] 02/14/2024 2:45 PM EDT Office Visit Urology Lynnette Fitzpatrick [address] [place] [address] Frank Weeks MD [address] [address] 02/20/2024 10:20 AM EDT Laboratory Lab Mobile Phlebot[facility] [address] [place] [address] [facility] Mobile Home Draw [address] [place] [address] 03/05/2024 10:20 AM EDT Laboratory Lab Mobile Phlebot[facility] [address] [place] [address] [facility] [address] [place] [address] 03/13/2024 2:00 PM EDT Office Visit Dermatology [facility] [address] [facility] [place] [address] Francisco Watson MD [address] [facility] [place] [address] 03/19/2024 10:20 AM EDT Laboratory Lab Mobile Phlebot[facility] [address] [place] [address] [facility], [facility] Mobile [facility] Draw [address] [place] [address] 03/24/2024 2:30 PM EDT Office Visit Hematology/Oncolo gy [facility] [address] [facility] [place] [address] Ayaka Tatum CRNP [address] [place] [address] 04/02/2024 10:20 AM EDT Laboratory Lab Mobile Phlebot[facility] [address] [place] [address] [facility] [address] [place] [address] 04/16/2024 10:20 AM EDT Laboratory Lab Mobile Phlebotomy [facility] [address] [place] [address] [facility] Mobile [facility] Draw [address] [place] [address] 04/30/2024 10:20 AM EDT Laboratory Lab Mobile Phlebotomy [facility] [address] [place] [address] [facility] Draw [address] [place] [address] 05/14/2024 10:20 AM EDT Laboratory Lab Mobile Phlebotomy [facility] [address] [place] [address] [facility] [address] [place] [address] 05/28/2024 10:20 AM EDT Laboratory Lab Mobile Phlebotomy [facility] [address] [place] [address] [facility] [address] [place] [address] 06/11/2024 10:20 AM EDT Laboratory Lab Mobile Phlebotomy [facility] [address] [place] [address] [facility] Draw [address] [place] [address] 06/25/2024 10:20 AM EDT Laboratory Lab Mobile Phlebotomy [facility] [address] [place] [address] [facility] Draw [address] [place] [address] 07/09/2024 10:20 AM EDT Laboratory Lab Mobile Phlebotomy [facility] [address] [place] [address] [facility] Draw [address] [place] [address] 07/23/2024 10:20 AM EDT Laboratory Lab Mobile [facility]bot[facility] [address] [place] [address] [facility] Mobile Home Draw [address] [place] [address] 08/06/2024 10:20 AM EDT Laboratory Lab Mobile [facility] [address] [place] [address] [facility] Mobile Home Draw [address] [place] [address] 08/20/2024 9:20 AM EDT Laboratory Lab Mobile [facility] [address] [place] [address] [facility] Mobile Home Draw [address] [place] [address] 08/20/2024 10:15 AM EDT Office Visit Ophthalmology, [address] [address] Cody Gonzalez DO [address] [place] [address] 09/03/2024 10:20 AM EDT Laboratory Lab Mobile Phlebotomy [facility] [address] [place] [address] [facility] Mobile Home Draw [address] [place] [address] 09/17/2024 10:20 AM EDT Laboratory Lab Mobile Phlebotomy [facility] [address] [place] [address] [facility] Mobile Home Draw [address] [place] [address] Scheduled Procedures Name Priority Associated Diagnoses Date/Ti [...] Additional history exists CKD PHOS USE SMARTSET 31102 01/28/202401/03, 07/26/2022, 12/05/2021, Additional history exists Diabetic Foot Exam 03/06/2024 03/06/2023, 0 01/03/2022, 03/02/2021, Additional history exists HbA1c 05/28/2024 11/27/2023, 05/03, 01/28/2023, Additional history exists GFR 06/22/2024 12/23/2023, 11/01, 08/30/2023, Additional history exists Albumin/Creatinine Ratio 07/12/2024 023, 10/01/2022, 09/11/2021, Additional history exists COLONOSCOPY-ANNUAL AGES 18-100 08/09/2024 08/09/2023, 11/07/2022, 11/07/2022, Additional history exists CKD HGB USE SMARTSET 41625 12/23/202412/23, 12/23/2023, 12/19/2023, Additional history exists Lipid [...] this encounter Medical Devices Implanted Type Area Magnetic Healer Device Identifier Shelf Expiration Date Model / Serial / Lot Clareon Iol Aspheric Hydrophobic Acrylic Iol Implanted:Qty: 1 on 04/23/2023 by Cody Gonzalez DO at OR [facility] Lens Left: Eye 11/12/2025 [id number] / [id number] / Viatorr Tips Endoprosthesis 8-10 Mm X 8cm / 2cm Implanted:Qty: 1 on 10/07/2020 by Go Alvarado MD at [facility] Right: Abdomen 03/03/2023 [id number] / / [id number] Description:Viatorr TIPS End oprosthesis 8-10 mm x 8cm / 2cm, Manufactored by [employer] Syr Pf 2ml Embospheres 100-300 - [id number] Implanted:Qty: 1 on 04/18/2021 by Kevin Lim DO at OR [facility] Left: Abdomen [employer] [id number] 11/25/2023 [id number] / / [id number] -[id number] Syr Pf 2ml Embospheres 100-300 - [id number] Implanted:Qty: 1 on 03/28/2022 at [facility] [employer] [id number] 08/31/2024 [id number] / / [id number] -[id number] Clareon Iol Aspheric Hydrophobic Acrylic Iol Implanted:Qty: 1 on 04/02/2023 by Cody Gonzalez DO at OR [facility] Right: Eye JAZMIN 11/12/2025 [id number] / [id number] / documented as of this encounter Visit Diagnoses Diagnosis Hematuria, gross- Primary Gross hematuria Abnormal cystoscopy Other nonspecific abnormal finding Iron deficiency anemia, unspecified iron deficiency anemia type- Primary Pancytopenia (HCC) Other pancytopenia GAVE (gastric antral vascular ectasia) Angiodysplasia of stomach and duodenum (without mention of hemorrhage) Liver cell carcinoma (HCC) Malignant neoplasm of liver, primary Prostate cancer (HCC) Malignant neoplasm of prostate Portal vein thrombosis Hematuria, gross Gross hematuria Abnormal cystoscopy Other nonspecific abnormal finding documented in this encounter Advance Directives Documents on File Type Date Recorded 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 No Full Code 07/22/2014 9:56 PM 07/24/2014 8:18 PM This order reflects the patients wishes and were consensually agreed upon. Question Answer Comments Discussion of Advance Directives occurred with: Patient Does the patient have a Living Will? No Does the patient have Health Care Power of Coloring Machine Operator? No Care Teams Warp Drawer Relationship Specialty Start Date End Date Francisco Cisse MD [address] [facility] [place] [address] PCP - General Internal Medicine 09/04/21 documented as of this encounter
--- OUTSIDE RECORDS SUMMARY | 2024-01-25 17:12 | External Medical Summary ---
Author Name Unknown Address Unknown Organization K01[facility] [address] [facility] [address] [facility] Report Ordering Provider Test Date Status NEELAM RICCI 12/26/2023 11:39:00 Final Observation Date Value Abnormality Reference (Units ) Status WBC, Total 12/26/2023 11:39:00 3.32 Below low normal 4. 00-10.80 (K/uL) Final RBC 12/26/2023 11:39:00 2.77 4.50-5.25 (M/uL) Final Hemoglobin 12/26/2023 11:39:00 8.8 Below low normal 14 .0-16.8 (g/dL) Final HCT 12/26/2023 11:39:00 28.2 Below low normal 40. 0-48.4 (%) Final MCV 12/26/2023 11:39:00 101.8 82.0-99.5 (fL) Final MCH 12/26/2023 11:39:00 31.8 27.0-34.0 (pg) Final MCHC 12/26/2023 11:39:00 31.2 32.0-36.0 (g/dL) Final RDW 12/26/2023 11:39:00 18.9 11.5-15.5 (%) Final Platelets 12/26/2023 11:39:00 84 Below low normal 140 -400 (K/uL) Final MPV 12/26/2023 11:39:00 Final No result - abnormal platele t distribution. Nucleated erythrocytes/100 l eukocytes [Ratio] in Blood by Automated count 12/26/2023 11:39:00 0 <=0 (/100 WBCs) Final Performing Location LABORATORY [facility] [address] [facility] [address]
--- OUTSIDE RECORDS SUMMARY | 2024-01-25 17:12 | External Medical Summary | Summary of Care ---
Author Name Unknown Organization [facility] Address [address] [place] [id number] Phone [phone] Care Team Providers Care Putty Mixer And Applier Name Role Phone Francisco Cisse MD Primary Care Provider + Reason for Referral * Ancillary Services (Within 10 days (routine)) - Authorized Specialty Diagnoses / Procedures Referred By Contgirish t Referred To Contact Social Sciences Research Scientist Diagnoses Iron deficiency anemia, unspecified iron deficiency anemia type Jennifer Ramires MD [address] [place] [address] Referral ID Status Reason Start Date Expiration Date Visits Requested Visits Authorized [id number] Authorized Ancillary Services Required 12/24/2023 999 999 Question Answer Referral Priority Within 10 days (routine) Where should this appointment be scheduled? Tamra Comments Is Patient homebound? Yes All sections of this form must be filled out completely. Forms with missing or illegible information will be returned for completion. This form should not be modified in any way. Forms that have been modified will be returned. This form may not be submitted by a home health agency. It must be complete and submitted by the ordering provider. One full business day lead time is required and service will be scheduled based on the next service day for the [facility] Home Phlebotomy does not service every geographical location on a daily basis. Contact [facility] Client Services at to find out service days for a specific location. Medical Laboratory [address] [place] [id number] Freddy Huddleston M.D. Director and Air Twister Winder Patient Name: Luis Hale : 1950 Sex: male Address [address] [place] [address] [place] [address] Provider: None? Francisco Cisse MD? Diagnosis: Tests Requested CBCd once every 2 weeks *PLEASE ARRANGE APPTS ON A MON, , or SAT* Thanks! Reason for Visit * Reason Onset Date Comments Outpatient Testing 12/24/2023 Home phleboto my Encounter Details Date Type Department Care Team (Late st Contact Info) Description 12/24/2023 Telephone Hematology/Oncology Treatment, [place] [address] [place], [place] [id number] Jennifer Ramires MD [address] [place] [facility] [place] [address] Outpatient Testing (Home phlebotomy) Allergies No known active allergiesdocumented as of [...] mRNA, LNP-s, No Pre serve, 2-Dose Series (BigML) 03/08/2021,02/15/2021 HepA Inact/HepB Recomb>=18yrs old 12/04/2019,04/2019,05/20/2019 11/19/2019 PPD 06/18/2017, 3,01/09/2012,0306/2011 Pneumococcal Conjugate Vacc, 13 Valent (Prevnar) 05/01/2017 Pneumococcal Polysaccharide PPV23 (Pneumovax) 08/28/2022,10/25/2015,07/14/2012 Season Influenza, Quad, PF, Adjuvanted, 65+ Yrs, IM (FLUAD) 10/07/2020(Deferred: Patient Refused - pt says he already had his shot last month at [facility] Hanyd Lyons and Mckinley Cobian made aware) Seasonal Influenza Virus Vac cine, Unspecified Formulation 09/15/2021,09/01/2019,09/04/2017,0905/2016,09/13/2014,08/10/2013,10/07/20 12,09/03/2011 Seasonal Influenza, PF, 6 M & [...] Telephone Encounter - Josephine Murphy RN - 12/24/2023 2:[address] Ramires, would like home phlebotomy for lab draw (CBCd) q2 weeks. Referral placed. Mobile lab: please arrange lab draws on either a Mon, , or Sat (this is in case patient needs atransfusion). Thanks! documented in this encounter Plan of Treatment Upcoming Encounters Date Type Department Care Team (Latest Contact Info) Description 12/26/2023 9:40 AM EST Office Visit Family Practice [facility] [address] [place] [address] Robinson Olson CRNP 132 [facility] [place] [address] 12/27/2023 2:30 PM EST Imaging Radiology [facility] [address] [place] [address] 01/21/2024 10:15 AM EST Cardiac Studies Cardiac Studies, [facility] [address] [place] [address] 01/30/2024 2:05 PM EST Hospital Encounter OR [facility], Operating Room, [facility] - 4th Floor [address] [place] [address] Frank Peraza MD [address] [place] [address] [place] [address] 01/30/2024 2:05 PM EST - 01/30/2024 3:07 PM EST Surgery [facility], Operating Room, [facility] - 4th Floor [address] [place] [address] Frank Peraza MD [address] [place] [address] [place] [address] CYSTOURETHROSCOPY WITH FULGURATION MEDIUM BLADDER TUMOR 02/04/2024 11:20 AM EST Office Visit Family Practice [facility] 132 [facility] [place] [address] Robinson Olson CRNP 132 [facility] [place] [address] 02/14/2024 2:45 PM EDT Office Visit Urology Lynnette Fitzpatrick [address] [place] [address] Frank Peraza MD [address] [place] [address] [place] [address] 03/13/2024 2:00 PM EDT Office Visit Dermatology [facility] 200 [facility] [place] [address] Francisco Watson MD 200 [facility] [place] [address] 03/24/2024 2:30 PM EDT Office Visit Hematology/Oncolo gy [facility] [place] [address] [place] [address] Ayaka Tatum CRNP [address] [place] [address] 08/20/2024 10:15 AM EDT Office Visit Ophthalmology, [facility] 132 [facility] [place] [address] Cody Gonzalez DO [address] [facility] [place] [address] Scheduled Orders Name Type Priority Associated Diagnoses Orde r Schedule CBC WITH WBC DIFFERENTIAL Lab STAT Iron deficiency anemia, unspecified iron deficiency anemia type Every 2 Weeks for 27 Occurrences starting 12/24/2023 until 12/24/2024 Scheduled Procedures Name Priority Associated Diagnoses Date/Ti me CYSTOURETHROSCOPY WITH FULGU RATION MEDIUM BLADDER TUMOR Hematuria, gross Abnormal cystoscopy 01/30/2024 2:05 PM EST COLONOSCOPY FLEXIBLE PROXIMA L DIAGNOSTIC Recall History of colonic polyps Portal hypertensive gastropathy (HCC) ESOPHAGOGASTRODUODENOSCOPY ( EGD), FLEXIBLE, TRANSORAL, DIAGNOSTIC Recall History of colonic polyps Portal hypertensive gastropathy (HCC) Scheduled Referrals Name Type Priority Associated Diagnoses Orde r Schedule HOME PHLEBOTOMY REFERRAL OP Referral Within 10 days (routine) Iron deficiency anemia, unspecified iron deficiency anemia type Ordered: 12/24/2023 Health Maintenance Due Date Last Done Comments Zoster Vaccines (1 of 2) 2000 COVID-19 Vaccine (3 - Pfizer risk series) 04/05/2021 03/08/2021, 02/15/2021 Depression Screening 05/03/2022 05/03/2021 Diabetic Eye Exam 01/17/2024 01/17/2023, , 01/17/2023, Additional history exists CKD PHOS USE SMARTSET 70770 01/28/202401/03, 07/26/2022, 12/05/2021, Additional history exists Diabetic Foot Exam 03/06/2024 03/06/2023, 0 01/03/2022, 03/02/2021, Additional history exists HbA1c 05/28/2024 11/27/2023, 05/03, 01/28/2023, Additional history exists GFR 06/22/2024 12/23/2023, 11/01, 08/30/2023, Additional history exists Albumin/Creatinine Ratio 07/12/2024 023, 10/01/2022, 09/11/2021, Additional history exists COLONOSCOPY-ANNUAL AGES 18-100 08/09/2024 08/09/2023, 11/07/2022, 11/07/2022, Additional history exists CKD HGB USE SMARTSET 26041 12/23/202412/23, 12/23/2023, 12/19/2023, Additional history exists Lipid [...] this encounter Medical Devices Implanted Type Area Helpdesk Manager Device Identifier Shelf Expiration Date Model / Serial / Lot Clareon Iol Aspheric Hydrophobic Acrylic Iol Implanted:Qty: 1 on 04/23/2023 by Cody Gonzalez DO at OR [facility] Lens Left: Eye 11/12/2025 CNA0T0 / [id number] / Viatorr Tips Endoprosthesis 8-10 Mm X 8cm / 2cm Implanted:Qty: 1 on 10/07/2020 by Go Alvarado MD at [facility] Right: Abdomen 03/03/2023 [id number] / / [id number] Description:Viatorr TIPS End oprosthesis 8-10 mm x 8cm / 2cm, Manufactored by [employer] Syr Pf 2ml Embospheres 100-300 - [id number] Implanted:Qty: 1 on 04/18/2021 by Kevin Lim DO at OR [facility] Left: Abdomen [employer] [id number] 11/25/2023 S220GH / / [id number] Syr Pf 2ml Embospheres 100-300 - [id number] Implanted:Qty: 1 on 03/28/2022 at [facility] [employer] [id number] 08/31/2024 S220GH / / [id number] -[id number] Clareon Iol Aspheric Hydrophobic Acrylic Iol Implanted:Qty: 1 on 04/02/2023 by Cody Gonzalez DO at OR [facility] Right: Eye JAZMIN 11/12/2025 CNA0T0 / [id number] / documented as of this encounter Visit Diagnoses Diagnosis Hematuria, gross- Primary Gross hematuria Abnormal cystoscopy Other nonspecific abnormal finding Iron deficiency anemia, unspecified iron deficiency anemia type- Primary Hematuria, gross Gross hematuria Abnormal cystoscopy Other nonspecific abnormal finding documented in this encounter Advance Directives Documents on File Type Date Recorded Patient Chain Offbearer Expl anation Advance Directives and Living Will 12/11/2022 ADVANCE DIRECTIVE / LIVING WILL LIVING WILL Power of Manager Technical Sales 12/11/2022 POWER OF A TTORNEY Latest Code [...] the patient have Health Care Power of Manager Technical Sales? No Full Code 07/22/2014 9:56 PM 07/24/2014 8:18 PM This order reflects the patients wishes and were consensually agreed upon. Question Answer Comments Discussion of Advance Directives occurred with: Patient Does the patient have a Living Will? No Does the patient have Health Care Power of Manager Technical Sales? No Care Teams Putty Mixer And Applier Relationship Specialty Start Date End Date Francisco Cisse MD 200 [facility] [place] [address] PCP - General Internal Medicine 09/04/21 documented as of this encounter
--- OUTSIDE RECORDS SUMMARY | 2024-01-25 17:13 | External Medical Summary | Summary of Care ---
Author Name Unknown Organization [facility] Address [address] [address] Phone [phone] Care Team Providers Care Maintenance Custodian Name Role Phone Francisco Cisse MD Primary Care Provider + Encounter Details Date Type Department Care Team (Late st Contact Info) Description 12/23/2023 Orders Only General Internal Medicine [facility] 200 [facility] [place] [address] Francisco [facility] [address] Decreased hemoglobin* Allergies No known active allergiesdocumented as of [...] mRNA, LNP-s, No Pre serve, 2-Dose Series (2 Minutes) 03/08/2021,02/15/2021 HepA Inact/HepB Recomb>=18yrs old 12/04/2019,04/2019,05/20/2019 11/19/2019 PPD 06/18/2017, 3,01/09/2012,0306/2011 Pneumococcal Conjugate Vacc, 13 Valent (Prevnar) 05/01/2017 Pneumococcal Polysaccharide PPV23 (Pneumovax) 08/28/2022,10/25/2015,07/14/2012 Season Influenza, Quad, PF, Adjuvanted, 65+ Yrs, IM (FLUAD) 10/07/2020(Deferred: Patient Refused - pt says he already had his shot last month at [facility] Handy Lyons and Mckinley Cobian [...] Addendum Note - Francisco Cisse MD - 12/23/2023 10:50 AM ESTAddended by: FRANCISCO CISSE on: 12/23/2023 10:50 AM Modules accepted: Orders documented in this encounter Plan of Treatment Upcoming Encounters Date Type Department Care Team (Late st Contact Info) Description 12/24/2023 2:30 PM EST Office Visit Hematology/Oncology [facility] 200 [facility] [place] [address] Jennifer Ramires MD 200 [facility] [place] [address] 12/26/2023 9:40 AM EST Office Visit Family Practice [facility] [address] [place] [address] Robinson Olson CRNP [address] [place] [address] 12/27/2023 2:30 PM EST Imaging Radiology [address] [place] [address] 01/21/2024 10:15 AM EST Cardiac Studies [facility]iac Studies, [facility] [place] [address] 01/30/2024 Hospital Encounter [facility], Operating Room, [facility] - [facility]th [facility] [place] [address] Frank Peraza MD [address] [place] [address] [place] [address] 02/04/2024 11:20 AM EST Office Visit Family Practice [facility] 132 [facility] [place] [address] Robinson Olson CRNP [address] [place] [address] 02/14/2024 2:45 PM EDT Office Visit Urology Lynnette Fitzpatrick [address] [place] [address] Frank Peraza MD [address] [place] [address] [place] [address] 03/13/2024 2:00 PM EDT Office Visit Dermatology [facility] 200 [facility] [place] [address] Francisco Watson MD [address] [facility] [address] 08/20/2024 10:15 AM EDT Office Visit Ophthalmology, [facility] 132 [facility] [place] [address] Cody Gonzalez DO [address] [place] [address] Scheduled Orders Name Type Priority Associated Diagnoses Orde r Schedule CBC WITH WBC DIFFERENTIAL Lab Routine Decreased hemoglobin Expected: 12/23/2023 (Approximate), Expires: 12/23/2024 Scheduled Procedures Name Priority Associated Diagnoses Date/Ti [...] Additional history exists CKD PHOS USE SMARTSET 42701 01/28/202401/03, 07/26/2022, 12/05/2021, Additional history exists Diabetic Foot Exam 03/06/2024 03/06/2023, 0 01/03/2022, 03/02/2021, Additional history exists GFR 05/17/2024 11/16/2023, 08/03, 07/24/2023, Additional history exists HbA1c 05/28/2024 11/27/2023, 05/03, 01/28/2023, Additional history exists Albumin/Creatinine Ratio 07/12/2024 023, 10/01/2022, 09/11/2021, Additional history exists COLONOSCOPY-ANNUAL AGES 18-100 08/09/2024 08/09/2023, 11/07/2022, 11/07/2022, Additional history exists CKD HGB USE SMARTSET 93654 12/19/202412/19, 12/06/2023, 12/06/2023, Additional history exists Lipid [...] this encounter Medical Devices Implanted Type Area Strings Teacher Device Identifier Shelf Expiration Date Model / Serial / Lot Clareon Iol Aspheric Hydrophobic Acrylic Iol Implanted:Qty: 1 on 04/23/2023 by Cody Gonzalez DO at OR [facility] Lens Left: Eye 11/12/2025 CNA0T0 / [id number] / Viatorr Tips Endoprosthesis 8-10 Mm X 8cm / 2cm Implanted:Qty: 1 on 10/07/2020 by Go Alvarado MD at [facility] Right: Abdomen 03/03/2023 [id number] / / [id number] Description:Viatorr TIPS End oprosthesis 8-10 mm x 8cm / 2cm, Manufactored by [employer] Syr Pf 2ml Embospheres 100-300 - [id number] Implanted:Qty: 1 on 04/18/2021 by Kevin Lim DO at OR [facility] Left: Abdomen [employer] [id number] 11/25/2023 S220GH / / [id number] Syr Pf 2ml Embospheres 100-300 - [id number] Implanted:Qty: 1 on 03/28/2022 at [facility] [employer] [id number] 08/31/2024 S220GH / / [id number] -[id number] Clareon Iol Aspheric Hydrophobic Acrylic Iol Implanted:Qty: 1 on 04/02/2023 by Cody Gonzalez DO at OR [facility] Right: Eye JAZMIN 11/12/2025 CNA0T0 / [id number] / documented as of this encounter Procedures Procedure Name Priority Date/Time Associated Diagnosis Comments CHEMISTRY-OUTSIDE Routine 12/19/2023 documented in this encounter Results * (ABNORMAL) CHEMISTRY-OUTSIDE (12/19/2023) Not all results display below - see scan for full detail OUTSIDE LAB (SEE SCANNED REPORT) Comment:SCAN INCLUDES - CBCD CREATININE-OUTSID E LAB OUTSIDE LAB (SEE SCANNED REPORT) EGFR-OUTSIDE LAB OUT SIDE LAB (SEE SCANNED REPORT) POTASSIUM-OUTSIDE LAB OUTSIDE LAB (SEE SCANNED REPORT) GLUCOSE-OUTSIDE LAB OUTSIDE LAB (SEE SCANNED REPORT) HOURS FASTING OUTSID E LAB (SEE SCANNED REPORT) TRIGLYCERIDES-OUT SIDE LAB OUTSIDE LAB (SEE SCANNED REPORT) CHOLESTEROL-OUTSI DE LAB OUTSIDE LAB (SEE SCANNED REPORT) HDL-OUTSIDE LAB OUTS CONNOR LAB (SEE SCANNED REPORT) CHOL/HDL RATIO-OUTSIDE LAB OUTSIDE LA B (SEE SCANNED REPORT) LDL (CALCULATED)-OUTS CONNOR LAB OUTSIDE LAB (SEE SCANNED REPORT) LDL (DIRECT MEASURE)-OUTSIDE LAB OUTSIDE LAB (SEE SCANNED REPORT) HEMOGLOBIN, Z4W-EONHZYW LAB OUTSIDE LAB (SEE SCANNED REPORT) PHOSPHORUS-OUTSID E LAB OUTSIDE LAB (SEE SCANNED REPORT) PTH-OUTSIDE LAB OUTS CONNOR LAB (SEE SCANNED REPORT) MICROALBUMIN RATIO-OUTSIDE LAB OUTSIDE LA B (SEE SCANNED REPORT) PROTEIN, UA-OUTSIDE LAB OUTSIDE LAB (SEE SCANNED REPORT) HEMOGLOBIN-OUTSID E LAB 7.8(A) 14.0 - 16.8 G/DL OUTSIDE LAB (SEE SCANNED REPORT) 12/19/2023 Francisco Cisse MD LABORATORY OUTSIDE LAB (SEE SCANNED REPORT) documented in this encounter Visit Diagnoses Diagnosis Hematuria, gross- Primary Gross hematuria Abnormal cystoscopy Other nonspecific abnormal finding Decreased hemoglobin- Primary Anemia, unspecified documented in this encounter Advance Directives Documents on File Type Date Recorded Patient Propeller Inspector Expl anation Advance Directives and Living Will 12/11/2022 ADVANCE DIRECTIVE / LIVING WILL LIVING WILL Power of Fitness And Wellness Coordinator 12/11/2022 POWER OF A TTORNEY Latest [...] the patient have Health Care Power of Fitness And Wellness Coordinator? No Full Code 07/22/2014 9:56 PM 07/24/2014 8:18 PM This order reflects the patients wishes and were consensually agreed upon. Question Answer Comments Discussion of Advance Directives occurred with: Patient Does the patient have a Living Will? No Does the patient have Health Care Power of Fitness And Wellness Coordinator? No Care Teams Maintenance Custodian Relationship Specialty Start Date End Date Francisco Cisse MD [address] [facility] [place] [address] PCP - General Internal Medicine 09/04/21 documented as of this encounter
--- OUTSIDE RECORDS SUMMARY | 2024-01-25 17:13 | External Medical Summary | Summary of Care ---
Author Name Unknown Organization [facility] Address [address] [place] [facility] [address] Phone [phone] Care Team Providers Care Motion And Time Study Teacher Name Role Phone Francisco Cisse MD Primary Care Provider + Reason for Visit * Reason Comments Cystoscopy * Evaluate & Treat - Unlimited Visits (Within 3 days (urgent)) - Authorized Specialty Diagnoses / Procedures Referred By Chacho fleming Referred To Contact Urology Diagnoses Recurrent gross hematuria History of prostate cancer History of radiation therapy Suprapubic pain, acute Shelbie Ayers MD [address] [place] [address] Referral ID Status Reason Start Date Expiration Date Visits Requested Visits Authorized [id number] Authorized Specialty Services Required 3 [phone] Encounter Details Date Type Department Care Team (Late st Contact Info) Description 12/19/2023 1:30 PM EST Office Visit Urology [place] Fitzpatrick [address] [place] [address] [place] [address] Frank Peraza MD [address] [place] [address] [place] [address] Abnormal cystoscopy*; Left renal mass; Prostate cancer (HCC); Hematuria, gross; Pre-op testing Allergies No known active allergiesdocumented as of this encounter (statuses as of 12/19/2023) Medications Medication Sig Dispensed Refills Start Date [...] mg NEBULIZER PRN 03/18/2023 03/17/2024 Act roderick sulfamethoxazole-trimet hoprim DS (Bactrim DS) 800-160 MG 1 TabletIndications:Hemat uria, gross 1 Tablet OR ONCE 12/19/2023 12/20/2023 Active documented as of this encounter (statuses as of 12/19/2023) Active Problems Problem Noted Date Diagnosed Date [...] as of this encounter (statuses as of 12/19/2023) Resolved Problems Problem Noted Date Diagnosed Date [...] as of this encounter (statuses as of 12/19/2023) Immunizations Name Administration Dates Next Due COVID-19 [...] as of this encounter Progress Notes * Frank Peraza MD - 12/19/2023 1:30 PM EST [id number] PCP: [place] [address] [phone] Luis Hale is a 73 year old male, who presents for cystoscopy for evaluation of hematuria. It hasbeen 9 months since the patient's last evaluation. Patient's past notes reviewed. CT scan done December 2023 demonstrates asymmetric bladder thickening, hepatic lesions. Inpatient urology consultations and notes from [facility] are also reviewed. No recent PSA value is appreciated. Prostate Cancer: Diagnosed Nov 2020. [place] 3+3 CAP in every core. High risk decipher score. Sydniegard started Jan 2021, last injection Jan 2021. XRT planned Jan 2021, completed April 2021. PATIENCE: L apical nodule noted Left renal lesion: Found incidentally July 2021 on MRI for hepatocellular carcinoma, 1.3 cm in size at time. Hepatic MRI January 2023: KIDNEYS: Left kidney anterior interpolar region 1.5 x 1.2 cm partially cystic lesion with enhancingseptation is stable since 01/29/2022, and minimally increased from 07/19/2021 when it measured 1.3 cm. PSA Results: Lab Results Component Value Date/Time [...] PSA SCREENING 3.17 (H) 12/29/2009 07:53 AM Current Outpatient Medications Medication Sig Dispense Refill Tylenol 325 MG Oral Capsule (Acetaminophen) Take 650 mg by mouth every 8 hours as needed for Pain (fever). BioCurityTouch Verio In Vitro Strip (Glucose Blood) Use [...] solution 2.5 mg 2.5 mg Nebulizer PRN Michaela, LUDIN ShaikhC Albuterol Sulfate (Proventil) (5 MG/ML) 0.5% *conc* inhalation solution 2.5 mg 2.5 mg Nebulizer William Palencia PA-C 2.5 mg at 03/20/23 0913 Review of patient's allergies indicates: No Known Allergies 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: 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 Tobacco Use Smoking status: Never Smokeless tobacco: Never Substance Use Topics Alcohol use: Not Currently Comment: 1971 Vaping/E-Cigarette Use Vaping/E-Cigarette Use Never User Vaping/E-Cigarette Substances Nicotine No Other No Flavoring No THC No Cannabidiol (CBD) No Vaping/E-Cigarette Devices Disposable No Pre-filled or Refillable Cartridge No Refillable Tank No Past Surgical History: Procedure Laterality Date CATARACT SURGERY,COMPLEX Right 04/02/2023 EXTRACAPSULAR CATARACT REMOVAL COMPLEX WITH IOL performed by Cody Gonzalez DO at OR [facility] CATARACT SURGERY,COMPLEX Left 04/23/2023 LEFT EXTRACAPSULAR CATARACT REMOVAL COMPLEX WITH IOL performed by Cody Gonzalez DO at OR [facility] COLONOSCOPY 08/27/2005 [place]/hemorrhoids non internal COLONOSCOPY, DIAGNOSTIC (RECTUM) 04/16/2013 COLONOSCOPY FLEXIBLE PROXIMAL DIAGNOSTIC performed by Salvador Lopez MD at ENDOSCOPY [facility], adenomatous polyps repeat colonoscopy in 3 years COLONOSCOPY, DIAGNOSTIC (RECTUM) 05/03/2016 adenomatous polyps, diverticulosis, repeat 5 yrs/COLONOSCOPY FLEXIBLE PROXIMAL DIAGNOSTIC performedby Salvador Lopez MD at ENDOSCOPY [facility] COLONOSCOPY, DIAGNOSTIC (RECTUM) 07/19/2020 adenomatous & hyperplastic polyps, diverticulosis, repeat 3 yrs / [facility] COLONOSCOPY, DIAGNOSTIC (RECTUM) 11/30/2021 mild XRT proctitis, diverticulosis / COLONOSCOPY FLEXIBLE PROXIMAL DIAGNOSTIC performed by Barbara March DO at ENDOSCOPY [facility] COLONOSCOPY, DIAGNOSTIC (RECTUM) 02/01/2022 Mild XRT proctitis / COLONOSCOPY FLEXIBLE PROXIMAL DIAGNOSTIC performed by Barbara March DO at ENDOSCOPY [facility] COLONOSCOPY, DIAGNOSTIC (RECTUM) N/A 11/07/2022 poor prep/diverticulosis sigmoid colon/rectal angioectasias consistent with radiation proctopathy/Colonoscopy/[facility] COLONOSCOPY, DIAGNOSTIC (RECTUM) N/A 08/09/2023 poor prep/moderate diverticulosis/hemorrhoids/biopsies show adenomatous and hyperplastic polyps/recall 1 years/Colonoscopy/[place] CT ABDOMEN W IV AND W ORAL CONTRAST 01/10/2010 EGD, FLEXIBLE, DIAGNOSTIC 07/22/2014 GE varices oozing blood, gastric polyp/ESOPHAGOGASTRODUODENOSCOPY (EGD), FLEXIBLE, TRANSORAL, DIAGNOSTIC performed by Juaquin Arrington MD at ENDOSCOPY [facility] EGD, FLEXIBLE, DIAGNOSTIC 07/23/2014 ESOPHAGOGASTRODUODENOSCOPY (EGD), FLEXIBLE, TRANSORAL, DIAGNOSTIC performed by Sophie Merino MD at [facility] EGD, FLEXIBLE, DIAGNOSTIC 06/02/2019 eso & gastric varices, gastric polyps/ESOPHAGOGASTRODUODENOSCOPY (EGD), FLEXIBLE, TRANSORAL, DIAGNOSTIC performed by Salvador Lopez MD at ENDOSCOPY [facility] EGD, FLEXIBLE, DIAGNOSTIC 03/25/2020 portal hypertensive gastropathy, esophageal varices / INPT [facility] EGD, FLEXIBLE, DIAGNOSTIC 07/19/2020 eso varices, portal hypertensive gastropathy, repeat 3 mo / [facility] EGD, FLEXIBLE, DIAGNOSTIC 10/25/2020 Portal hypertensive gastropathy, eso varices / [facility] EGD, FLEXIBLE, DIAGNOSTIC 08/202222 Grade I esophageal varices / [facility] EGD, FLEXIBLE, DIAGNOSTIC N/A 09/11/2022 grade II esophageal varices/gastric antral vascular ectasia, treated with APC/repeat 3 months/EGD/[facility] EGD, FLEXIBLE, DIAGNOSTIC N/A 11/07/2022 grade III esophageal varices, banded/gastric antral vascular ectasia/repeat 2 months/EGD/[facility] EGD, FLEXIBLE, DIAGNOSTIC N/A 02/01/2023 [facility]< egd. / single G2 varix, banded and varices eradicated / no specimens collected / egd in 1 to 2 months / EGD, FLEXIBLE, DIAGNOSTIC N/A 08/09/2023 portal hypertensive gastropathy/repeat 1 year/EGD/[facility] EGD, FLEXIBLE, DIAGNOSTIC 05/22/2023 GAVE, repeat 4-6 wks / [facility] IR CANCER THERASPHERE EMBOLIZATION 03/28/2022 IR EMBOLIZATION Left 04/18/2021 IMAGING SUPERVISION & INTERPRETATION TRANSCATHETER THERAPY, EMBOLIZATION performed by Kevin Lim DO at OR [facility] IR EMBOLIZATION ARTERIAL NON HEMMORHAGE Left 02/21/2022 EMBOLIZATION ARTERIAL; SUPERVISION & INTERPRETATION performed by Kevin Lim DO at OR [facility] IR EMBOLIZATION ARTERIAL NON HEMMORHAGE Left 06/05/2022 EMBOLIZATION ARTERIAL; SUPERVISION & INTERPRETATION performed by Kevin Lim DO at OR [facility] IR VENOUS TIPS 10/07/2020 REMOVAL OF TONSILS, UNDER AGE 12 age 6-7 Tonsils Removal,<12 Y/O SIGMOIDOSCOPY, DIAGNOSTIC 04/12/2022 radiation proctitis, diverticulosis / [facility] TIPS, REVISION N/A 01/24/2021 REVISION TRANSVENOUS INTRAHEPATIC PORTOSYSTEMIC SHUNT performed by Kevin Lim DO at OR [facility] TIPS, REVISION Right 10/19/2022 REVISION TRANSVENOUS INTRAHEPATIC PORTOSYSTEMIC SHUNT performed by Howie Valdovinos MD at OR [facility] TIPS, REVISION Right 02/20/2023 REVISION TRANSVENOUS INTRAHEPATIC PORTOSYSTEMIC SHUNT performed by Kevin Lim DO at OR [facility] Past Medical History: Diagnosis Date Acquired thrombocytopenia (HCC) 09/05/2017 Allergic rhinitis Anemia Anxiety and depression Aortic valve sclerosis 02/01/2023 Benign neoplasm of colon 04/16/2013 COLONOSCOPY FLEXIBLE PROXIMAL DIAGNOSTIC performed by Salvador Lopez MD at ENDOSCOPY [facility], adenomatous polyps repeat colonoscopy in [...] cancer (HCC) 03/02/2021 Pulmonary hypertension (HCC) 02/01/2023 Patient Active Problem List Diagnosis Code Allergic [...] J98.4 Closed T12 spinal fracture (HCC) S22.089A Protein-calorie malnutrition (HCC) E46 Prostate cancer (HCC) C61 Constitutional: (-) fever and (-) chills ENT: (-) stridor Cardiovascular: (-) chest pain Male : see HPI Neurology: (-) negative: no focal neurologic defect Psychiatry: (-) negative: no depression or anxiety Physical Exam Nursing note reviewed. Constitutional: General: He is not in acute distress. Appearance: Normal appearance. He is not toxic-appearing. HENT: Head: Normocephalic and atraumatic. Right Ear: External ear normal. Left Ear: External ear normal. Nose: Nose normal. Mouth/Throat: Mouth: Mucous membranes are moist. Cardiovascular: Pulses: Normal pulses. Pulmonary: Effort: Pulmonary effort is normal. No respiratory distress. Abdominal: Palpations: Abdomen is soft. Tenderness: There is no abdominal tenderness. Musculoskeletal: Cervical back: Normal range of motion and neck supple. Lymphadenopathy: Cervical: No cervical adenopathy. Skin: Coloration: Skin is not cyanotic or pale. Findings: Rash (BLE rash) present. Neurological: Mental Status: He is alert and oriented to person, place, and time. Psychiatric: Attention and Perception: Attention normal. Mood and Affect: Mood and affect normal. Cystoscopy Procedure Note: Patient was properly identified and appropriate consent was confirmed. Risks and benefits of the procedure were reviewed and the patient was prepped and draped in the standard fashion for the procedure. A well lubricated 16 [place] flexible cystoscope was introduced through the meatus into the urethra. Urethra demonstrated no abnormalities. Prostatic urethra demonstrated moderate lateral lobe prostatic obstruction, varicosities, and median lobe element. Bladder neck was visualized and bladder was entered. Sterile saline irrigation was used to distend the bladder which was noted to have mobile debris and abnormal, friable and bleeding mucosa at the left bladder neck without clear papillary tumor. Detrusor noted to have grade 3 trabeculation. Bladder was completely inspected including retroflexion of the scope. Ureteral orifices were poorly visualized secondary to debris. [place] of urine was removed from the bladder to be sent for culture. After this was completed the cystoscope was removed. Patient tolerated the procedure well without complications or difficulties. Oilseed Meat Presser was present for entire procedure. Perioperative Bactrim was provided. Impression/Plan: 73-year-old male with a history of prostate cancer, radiation therapy, renal lesion, abnormal cystoscopy. Findings reviewed with patient and son. Seen be active bleeding and abnormal cystoscopy will proceed with cystoscopy, bladder biopsy, fulguration, possible TURBT. The possibility of radiation cystitis versus early urothelial malignancy is reviewed. Hopefully, fulguration can be undertaken to assistwith recurrent episodes of bleeding as well. Patient vocalizes good understanding of the treatment plan. Informed consent obtained. PSA with next labs Obtain outside imaging from [facility] into PACS Cysto, bladder biopsy, fulguration, possible TURBT. Two week path check. Frank Peraza MD 12:45 PM 12/19/2023 documented in this encounter Nursing Notes * Ira Browne LPN - 12/19/2023 1:24 PM EST Chief Complaint Patient presents with Cystoscopy Pt presents for cysto, consent signed Patient's skin was prepped with hibiclens, and 2% lidocaine jelly was inserted into urethra for cystoscopy. Patient tolerated well. documented in this encounter Miscellaneous Notes * Addendum Note - Renée Barcenas OSA - 12/19/2023 2:10 PM ESTAddended by: RENÉE BARCENAS on: 12/19/2023 02:10 PM Modules accepted: Orders documented in this encounter Plan of Treatment Upcoming Encounters Date Type Department Care Team (Late st Contact Info) Description 12/24/2023 2:30 PM EST Office Visit Hematology/Oncology [facility] [address] [facility] [address] [place] [address] Jennifer Ramires MD [address] [facility] [place] [address] 12/26/2023 9:40 AM EST Office Visit [facility] [address] [place] [address] Robinson Olson CRNP [address] [place] [address] 12/27/2023 2:30 PM EST Imaging Radiology [facility] [address] [facility] [place] [address] 01/21/2024 10:15 AM EST Cardiac Studies Cardiac Studies, [facility] [address] [facility] [place] [address] 01/29/2024 Hospital Encounter [facility], Operating Room [facility] [address] [place] [phone] Frank [facility] [address] [place] [address] 02/04/2024 11:20 AM EST Office Visit [facility] [address] [place] [address] Robinson Olson CRNP [address] [place] [address] 02/14/2024 2:45 PM EDT Office Visit Urology [place] [facility] [address] [facility] [employer] [address] [place] [address] Frank [facility] MD [facility] [address] [place] [address] 03/13/2024 2:00 PM EDT Office Visit Dermatology [facility] [address] [facility] [place] [address] Francisco Watson MD [address] [facility] [place] [address] 08/20/2024 10:15 AM EDT Office Visit Ophthalmology, [facility] [address] [facility] [place] [address] Cody Gonzalez DO [address] [facility] [place] [address] Scheduled Orders Name Type Priority Associated Diagnoses Orde r Schedule PSA Lab Routine Prostate cancer (HCC) Expected: 12/19/2023, Expires: 12/19/2024 CULTURE, URINE, QUANTITATIVE Lab Routine Hematuria, gross Expected: 12/19/2023, Expires: 12/19/2024 CYTOLOGY Pathology Routine Hematuria, gross Ordered: 12/19/2023 CYSTOSCOPY Procedures Routine Hematuria, gross Ordered: 12/19/2023 EKG EKG Routine Left renal mass Prostate cancer (HCC) Hematuria, gross Abnormal cystoscopy Pre-op testing Expected: 12/19/2023 (Approximate), Expires: 01/19/2025 CULTURE, URINE, QUANTITATIVE Lab Routine Left renal mass Prostate cancer (HCC) Hematuria, gross Abnormal cystoscopy Pre-op testing Expected: 12/19/2023, Expires: 12/19/2024 URINALYSIS, REFLEX TO MICROSCOPIC Lab Routine Left renal mass Prostate cancer (HCC) Hematuria, gross Abnormal cystoscopy Pre-op testing Expected: 12/19/2023, Expires: 12/19/2024 Scheduled Procedures Name Priority Associated Diagnoses Date/Ti [...] Additional history exists CKD PHOS USE SMARTSET 41378 01/28/202401/03, 07/26/2022, 12/05/2021, Additional history exists Diabetic Foot Exam 03/06/2024 03/06/2023, 0 01/03/2022, 03/02/2021, Additional history exists GFR 05/17/2024 11/16/2023, 08/03, 07/24/2023, Additional history exists HbA1c 05/28/2024 11/27/2023, 05/03, 01/28/2023, Additional history exists Albumin/Creatinine Ratio 07/12/2024 023, 10/01/2022, 09/11/2021, Additional history exists COLONOSCOPY-ANNUAL AGES 18-100 08/09/2024 08/09/2023, 11/07/2022, 11/07/2022, Additional history exists CKD HGB USE SMARTSET 97673 12/06/202412/06, 12/06/2023, 11/16/2023, Additional history exists Lipid [...] this encounter Medical Devices Implanted Type Area Counter Former Device Identifier Shelf Expiration Date Model / Serial / Lot Clareon Iol Aspheric Hydrophobic Acrylic Iol Implanted:Qty: 1 on 04/23/2023 by Cody Gonzalez DO at OR [facility] Lens Left: Eye 11/12/2025 [id number] / [id number] / Viatorr Tips Endoprosthesis 8-10 Mm X 8cm / 2cm Implanted:Qty: 1 on 10/07/2020 by Go Alvarado MD at [facility] Right: Abdomen 03/03/2023 [id number] / / [id number] Description:Viatorr TIPS End oprosthesis 8-10 mm x 8cm / 2cm, Manufactored by [employer] Syr Pf 2ml Embospheres 100-300 - [id number] Implanted:Qty: 1 on 04/18/2021 by Kevin Lim DO at OR [facility] Left: Abdomen [employer] [id number] 11/25/2023 [id number] / / [id number] Syr Pf 2ml Embospheres 100-300 - [id number] Implanted:Qty: 1 on 03/28/2022 at [facility] [employer] [id number] 08/31/2024 S220GH / / [id number] -[id number] Clareon Iol Aspheric Hydrophobic Acrylic Iol Implanted:Qty: 1 on 04/02/2023 by Cody Gonzalez DO at OR [facility] Right: Eye JAZMIN 11/12/2025 CNA0T0 / [id number] / documented as of this encounter Visit Diagnoses Diagnosis Abnormal cystoscopy- Primary Other nonspecific abnormal finding Left renal mass Unspecified disorder of kidney and ureter Prostate cancer (HCC) Malignant neoplasm of prostate Hematuria, gross Gross hematuria Pre-op testing Preoperative examination, unspecified Hematuria, gross- Primary Gross hematuria Abnormal cystoscopy Other nonspecific abnormal finding documented in this encounter Advance Directives Documents on File Type Date Recorded Patient Handy Worker Expl anation Advance Directives and Living Will 12/11/2022 ADVANCE DIRECTIVE / LIVING WILL LIVING WILL Power of Box Storage Worker 12/11/2022 POWER OF A TTORNEY Latest [...] patient have Health Care Power of Box Storage Worker? No Full Code 07/22/2014 9:56 PM 07/24/2014 8:18 PM This order reflects the patients wishes and were consensually agreed upon. Question Answer Comments Discussion of Advance Directives occurred with: Patient Does the patient have a Living Will? No Does the patient have Health Care Power of Box Storage Worker? No Care Teams Motion And Time Study Teacher Relationship Specialty Start Date End Date Francisco Cisse MD [address] [place] [address] PCP - General Internal Medicine 09/04/21 documented as of this encounter
--- OUTSIDE RECORDS SUMMARY | 2024-01-25 17:13 | External Medical Summary ---
Author Name Unknown Address Unknown Organization [id number]:[facility] - [address] [facility] [place] [address] Laboratory Report Ordering Provider Test Date Status CONCEPCIÓN CUENCA 12/23/2023 16:24:23 Final Observation Date Value Abnormality Reference (Units ) Status Color of Urine by Auto 12/23/2023 16:24:23 Red Abnormal Light Yellow, Yellow, Dark Yellow Final Clarity, Urine 12/23/2023 16:24:23 Turbid Abnormal Clear Final Glucose [Mass/volume] in Urine by Automated test strip 12/23/2023 16:24:23 Negative Negative (mg/dL) Final Bilirubin.total [Presence] in Urine by Automated test strip 12/23/2023 16:24:23 Small Abnormal Negative Final Ketones [Mass/volume] in Urine by Automated test strip 12/23/2023 16:24:23 Trace Abnormal Negative (mg/dL) Final Specific gravity, Urine 12/23/2023 16:24:23 1.025 1.003-1.030 Final Hemoglobin [Presence] in Urine by Automated test strip 12/23/2023 16:24:23 Large Abnormal Negative Final pH, Urine 12/23/2023 16:24:23 5.5 5.0-7.5 (Units) Final Protein [Mass/volume] in Urine by Automated test strip 12/23/2023 16:24:23 >=300 Abnormal Negative (mg/dL) Final Urobilinogen [Mass/volume] in Urine by Automated test strip 12/23/2023 16:24:23 0.2 0.2, 1.0 (mg/dL) Final Nitrite [Presence] in Urine by Automated test strip 12/23/2023 16:24:23 Negative Negative Final Leukocyte esterase [Presence] in Urine by Automated test strip 12/23/2023 16:24:23 Negative Negative Final Performing Location [facility] - [address] [facility] [place] [address]
--- OUTSIDE RECORDS SUMMARY | 2024-01-25 17:13 | External Medical Summary ---
Author Name Unknown Address Unknown Organization K01:[facility] [address] [place] [address] Laboratory Report Ordering Provider Test Date Status CONCEPCIÓN CUENCA 12/23/2023 16:24:23 Final Observation Date Value Abnormality Reference (Units) Status Bacteria identified in Specimen by Culture 12/23/2023 16:24:23 No significant growth Final Test: Culture, Urine, Quanti tative
Specimen Source: Urine, Clean Catch
Specimen Type: Urine
Specimen Date: 12/23/2023 4:24 PM
Result Date: 12/24/2023 8:01 PM
Result Status: Final result
Resulting Lab: [facility]
[address]
[place] [address]

CULTURE

No significant growth

null Performing Location [facility] - [address] [place] [id number]
--- OUTSIDE RECORDS SUMMARY | 2024-01-25 17:13 | External Medical Summary | Summary of Care ---
Author Name Unknown Organization [facility] Address [address] [place] [place] [facility] [place] [address] Phone [phone] Care Team Providers Care Fleet Administrator Name Role Phone Francisco Cisse MD Primary Care Provider + Reason for Visit * Reason Comments Cystoscopy * Evaluate & Treat - Unlimited Visits (Within 3 days (urgent)) - Authorized Specialty Diagnoses / Procedures Referred By Chacho fleming Referred To Contact Urology Diagnoses Recurrent gross hematuria History of prostate cancer History of radiation therapy Suprapubic pain, acute Shelbie Ayers MD [address] [place] [address] Referral ID Status Reason Start Date Expiration Date Visits Requested Visits Authorized [id number] Authorized Specialty Services Required 3 [phone] Encounter Details Date Type Department Care Team (Late st Contact Info) Description 12/19/2023 1:30 PM EST Office Visit Urology Lynnette Fitzpatrick [address] [place] [address] Frank Peraza MD [address] [place] [address] Abnormal cystoscopy*; Left renal mass; Prostate cancer [...] already had his shot last month at [facility] [...] Peraza MD - 12/19/2023 1:30 PM EST [id number] PCP: [place] [address] [phone] Luis Hale is a 73 year old male, who presents for cystoscopy for evaluation of hematuria. It hasbeen 9 months since the patient's last evaluation. Patient's past notes reviewed. CT scan done December 2023 demonstrates asymmetric bladder thickening, hepatic lesions. Inpatient urology consultations and notes from [facility] are also reviewed. No recent PSA value is appreciated. Prostate Cancer: Diagnosed Nov 2020. Duane 3+3 CAP in every core. High risk [...] 8 hours as needed for Pain (fever). [email or web address] Verio In Vitro Strip (Glucose Blood) Use [...] performed by Cody Gonzalez DO at OR [facility] CATARACT SURGERY,COMPLEX Left 04/23/2023 LEFT EXTRACAPSULAR CATARACT REMOVAL COMPLEX WITH IOL performed by Cody Gonzalez DO at OR [facility] COLONOSCOPY 08/27/2005 lock haven/hemorrhoids non internal COLONOSCOPY, DIAGNOSTIC (RECTUM) 04/16/2013 COLONOSCOPY FLEXIBLE PROXIMAL DIAGNOSTIC performed by Salvador Lopez MD at ENDOSCOPY [facility], adenomatous polyps repeat colonoscopy in 3 years COLONOSCOPY, DIAGNOSTIC (RECTUM) 05/03/2016 adenomatous polyps, diverticulosis, repeat 5 yrs/COLONOSCOPY FLEXIBLE PROXIMAL DIAGNOSTIC performedby Salvador Lopez MD at ENDOSCOPY [facility] COLONOSCOPY, DIAGNOSTIC (RECTUM) 07/19/2020 adenomatous & hyperplastic polyps, diverticulosis, repeat 3 yrs / [facility] COLONOSCOPY, DIAGNOSTIC (RECTUM) 11/30/2021 mild XRT proctitis, diverticulosis / COLONOSCOPY FLEXIBLE PROXIMAL DIAGNOSTIC performed by Barbara March DO at ENDOSCOPY [facility] COLONOSCOPY, DIAGNOSTIC (RECTUM) 02/01/2022 Mild XRT proctitis / COLONOSCOPY FLEXIBLE PROXIMAL DIAGNOSTIC performed by Barbara March DO at ENDOSCOPY [facility] COLONOSCOPY, DIAGNOSTIC (RECTUM) N/A 11/07/2022 poor prep/diverticulosis sigmoid colon/rectal angioectasias consistent with radiation proctopathy/Colonoscopy/AL COLONOSCOPY, DIAGNOSTIC (RECTUM) N/A 08/09/2023 poor prep/moderate diverticulosis/hemorrhoids/biopsies show adenomatous and hyperplastic polyps/recall 1 years/Colonoscopy/[place] CT ABDOMEN W IV AND W ORAL CONTRAST 01/10/2010 EGD, FLEXIBLE, DIAGNOSTIC 07/22/2014 GE varices oozing blood, gastric polyp/ESOPHAGOGASTRODUODENOSCOPY (EGD), FLEXIBLE, TRANSORAL, DIAGNOSTIC performed by Juaquin Arrington MD at ENDOSCOPY [facility] EGD, FLEXIBLE, DIAGNOSTIC 07/23/2014 ESOPHAGOGASTRODUODENOSCOPY (EGD), FLEXIBLE, TRANSORAL, DIAGNOSTIC performed by Sophie Merino MD at ENDOSCOPY [facility] EGD, FLEXIBLE, DIAGNOSTIC 06/02/2019 eso & gastric varices, gastric polyps/ESOPHAGOGASTRODUODENOSCOPY (EGD), FLEXIBLE, TRANSORAL, DIAGNOSTIC performed by Salvador Lopez MD at ENDOSCOPY [facility] EGD, FLEXIBLE, DIAGNOSTIC 03/25/2020 portal hypertensive gastropathy, esophageal varices / INPT [facility] EGD, FLEXIBLE, DIAGNOSTIC 07/19/2020 eso varices, portal hypertensive gastropathy, repeat 3 mo / [facility] EGD, FLEXIBLE, DIAGNOSTIC 10/25/2020 Portal hypertensive gastropathy, eso varices / [facility] EGD, FLEXIBLE, DIAGNOSTIC 08/202222 Grade I esophageal varices / [facility] EGD, FLEXIBLE, DIAGNOSTIC N/A 09/11/2022 grade II esophageal varices/gastric antral vascular ectasia, treated with APC/repeat 3 months/EGD/AL EGD, FLEXIBLE, DIAGNOSTIC N/A 11/07/2022 grade III esophageal varices, banded/gastric antral vascular ectasia/repeat 2 months/EGD/AL EGD, FLEXIBLE, DIAGNOSTIC N/A 02/01/2023 [facility]< egd. / single G2 varix, banded and varices eradicated / no specimens collected / egd in 1 to 2 months / EGD, FLEXIBLE, DIAGNOSTIC N/A 08/09/2023 portal hypertensive gastropathy/repeat 1 year/EGD/AL EGD, FLEXIBLE, DIAGNOSTIC 05/22/2023 GAVE, repeat 4-6 wks / [facility] IR CANCER THERASPHERE EMBOLIZATION 03/28/2022 IR EMBOLIZATION Left 04/18/2021 IMAGING SUPERVISION & INTERPRETATION TRANSCATHETER THERAPY, EMBOLIZATION performed by Kevin Lim DO at OR [facility] IR EMBOLIZATION ARTERIAL NON HEMMORHAGE Left 02/21/2022 EMBOLIZATION ARTERIAL; SUPERVISION & INTERPRETATION performed by Kevin Lim DO at OR [facility] IR EMBOLIZATION ARTERIAL NON HEMMORHAGE Left 06/05/2022 EMBOLIZATION ARTERIAL; SUPERVISION & INTERPRETATION performed by Kevin Lim DO at OR [facility] IR VENOUS TIPS 10/07/2020 REMOVAL OF TONSILS, UNDER AGE 12 age 6-7 Tonsils Removal,<12 Y/O SIGMOIDOSCOPY, DIAGNOSTIC 04/12/2022 radiation proctitis, diverticulosis / [facility] TIPS, REVISION N/A 01/24/2021 REVISION TRANSVENOUS INTRAHEPATIC PORTOSYSTEMIC SHUNT performed by Kevin Lim DO at OR [facility] TIPS, REVISION Right 10/19/2022 REVISION TRANSVENOUS INTRAHEPATIC PORTOSYSTEMIC SHUNT performed by Howie Valdovinos MD at OR [facility] TIPS, REVISION Right 02/20/2023 REVISION TRANSVENOUS INTRAHEPATIC PORTOSYSTEMIC SHUNT performed by Kevin Lim DO at OR [facility] Past Medical History: Diagnosis Date Acquired thrombocytopenia (HCC) 09/05/2017 Allergic rhinitis Anemia Anxiety and depression Aortic valve sclerosis 02/01/2023 Benign neoplasm of colon 04/16/2013 COLONOSCOPY FLEXIBLE PROXIMAL DIAGNOSTIC performed by Salvador Lopez MD at ENDOSCOPY [facility], adenomatous polyps repeat colonoscopy in [...] for the procedure. A well lubricated 16 Kiswahili flexible cystoscope was introduced through the meatus [...] the procedure well without complications or difficulties. Blade Aligner was present for entire procedure. Perioperative Bactrim [...] with next labs Obtain outside imaging from [facility] into PACS Cysto, bladder biopsy, fulguration, possible [...] 12/24/2023 2:30 PM EST Office Visit Hematology/Oncology [facility] [address] [address] Jennifer Ramires MD [address] [facility] [place] [address] 12/26/2023 9:40 AM EST Office Visit Family [facility] [address] [facility] [place] [address] Robinson Olson CRNP [address] [facility] [place] [address] 12/27/2023 2:30 PM EST Imaging Radiology [facility] [address] [facility] [address] [facility] [place] [address] 02/04/2024 11:20 AM EST Office Visit Family [facility] [address] [facility] [place] [address] Robinson Olson CRNP [address] [facility] [place] [address] 03/13/2024 2:00 PM EDT Office Visit Dermatology [facility] [address] [place] [address] Francisco Watson MD [address] [place] [address] 08/20/2024 10:15 AM EDT Office Visit Ophthalmology, [facility] [address] [facility] [place] [address] Cody Gonzalez, DO [address] [facility] [place] [address] Scheduled Orders Name Type Priority Associated Diagnoses [...] Additional history exists CKD PHOS USE SMARTSET 13794 01/28/202401/03, 07/26/2022, 12/05/2021, Additional history exists Diabetic Foot Exam 03/06/2024 03/06/2023, 0 01/03/2022, 03/02/2021, Additional history exists GFR 05/17/2024 11/16/2023, 08/03, 07/24/2023, Additional history exists HbA1c 05/28/2024 11/27/2023, 05/03, 01/28/2023, Additional history exists Albumin/Creatinine Ratio 07/12/2024 023, 10/01/2022, 09/11/2021, Additional history exists COLONOSCOPY-ANNUAL AGES 18-100 08/09/2024 08/09/2023, 11/07/2022, 11/07/2022, Additional history exists CKD HGB USE SMARTSET 68031 12/06/202412/06, 12/06/2023, 11/16/2023, Additional history exists Lipid [...] this encounter Medical Devices Implanted Type Area Copy Editor Device Identifier Shelf Expiration Date Model / Serial / Lot Clareon Iol Aspheric Hydrophobic Acrylic Iol Implanted:Qty: 1 on 04/23/2023 by Cody Gonzalez DO at OR [facility] Lens Left: Eye 11/12/2025 [id number] / [id number] / Viatorr Tips Endoprosthesis 8-10 Mm X 8cm / 2cm Implanted:Qty: 1 on 10/07/2020 by Go Alvarado MD at [facility] Right: Abdomen 03/03/2023 [id number] / / [id number] Description:Viatorr TIPS End oprosthesis 8-10 mm x 8cm / 2cm, Manufactored by [employer] Syr Pf 2ml Embospheres 100-300 - [id number] Implanted:Qty: 1 on 04/18/2021 by Kevin Lim DO at OR [facility] Left: Abdomen [employer] [id number] 11/25/2023 S220GH / / [id number] Syr Pf 2ml Embospheres 100-300 - [id number] Implanted:Qty: 1 on 03/28/2022 at [facility] [employer] [id number] 08/31/2024 S220GH / / [id number] Clareon Iol Aspheric Hydrophobic Acrylic Iol Implanted:Qty: 1 on 04/02/2023 by Cody Gonzalez DO at OR [facility] Right: Eye JAZMIN 11/12/2025 CNA0T0 / [id number] / documented as of this encounter Visit Diagnoses Diagnosis Abnormal cystoscopy- Primary Other nonspecific abnormal finding Left renal mass Unspecified disorder of kidney and ureter Prostate cancer (HCC) Malignant neoplasm of prostate Hematuria, gross Gross hematuria Pre-op testing Preoperative examination, unspecified documented in this encounter Advance Directives Documents on File Type Date Recorded Patient Car Conditioner Expl anation Advance Directives and Living Will 12/11/2022 ADVANCE DIRECTIVE / LIVING WILL LIVING WILL Power of Lens Engraver 12/11/2022 POWER OF A TTORNEY Latest Code [...] the patient have Health Care Power of Lens Engraver? No Full Code 07/22/2014 9:56 PM 07/24/2014 8:18 PM This order reflects the patients wishes and were consensually agreed upon. Question Answer Comments Discussion of Advance Directives occurred with: Patient Does the patient have a Living Will? No Does the patient have Health Care Power of Lens Engraver? No Care Teams Fleet Administrator Relationship Specialty Start Date End Date Francisco Cisse MD [address] [place] [address] PCP - General Internal Medicine 09/04/21 documented as of this encounter
--- OUTSIDE RECORDS SUMMARY | 2024-01-25 17:13 | External Medical Summary ---
Author Name Unknown Address Unknown Organization [id number]:[facility] [address] [place] [address] Laboratory Report Ordering Provider Test Date Status JOLENE PARNELL 12/23/2023 16:24:23 Final Warfarin Therapy
INR: 2 .0-3.0 conventional anticoagulation
INR: 2.5- 3.5 high intensity anticoagulation Observation Date Value Abnormality Reference (Units ) Status PT 12/23/2023 16:24:23 15.5 Above high normal 11 .6-15.2 (seconds) Final INR 12/23/2023 16:24:23 1.2 0.8-1.2 Final Performing Location [facility] [place] [address]
--- OUTSIDE RECORDS SUMMARY | 2024-01-25 17:13 | External Medical Summary | Summary of Care ---
Author Name Unknown Organization [facility] Address [address] [address] Phone [phone] Care Team Providers Care Spa Associate Name Role Phone Francisco Cisse MD Primary Care Provider + Reason for Visit * Reason Onset Date Comments Test Results 12/23/2023 Encounter Details Date Type Department Care Team (Late st Contact Info) Description 12/23/2023 Telephone General Internal Medicine [facility] [address] [facility] [place] [place] [address] Francisco Cisse MD [address] [place] [address] Test Results Allergies No known active allergiesdocumented [...] mRNA, LNP-s, No Pre serve, 2-Dose Series ([employer]) 03/08/2021,02/15/2021 HepA Inact/HepB Recomb>=18yrs old 12/04/2019,04/2019,05/20/2019 11/19/2019 PPD 06/18/2017, 3,01/09/2012,06/2011 Pneumococcal Conjugate Vacc, 13 Valent (Prevnar) 05/01/2017 Pneumococcal Polysaccharide PPV23 (Pneumovax) 08/28/2022,10/25/2015,07/14/2012 Season Influenza, Quad, PF, Adjuvanted, 65+ Yrs, IM (FLUAD) 10/07/2020(Deferred: Patient Refused - pt says he already had his shot last month at [facility] Ly[facility] and Mckinley [facility]ian made aware) [...] 12/27/2023 because of his recent MRI at [facility]. Please advise. patient informed and voiced understanding. He has Hospital F/u scheduled with JEFF Lovett at [facility] on 12/26/2023 Pt is agreeable to follow up for labs in one week * Telephone Encounter - Velasquez Thomson LPN - 12/23/2023 12:52 PM EST ----- Message from Francisco Cisse MD sent at 12/23/2023 10:50 AM EST ----- Hgb low at 7.8 but better then last check [facility], how is he feeling? Can he schedule hospital follow up. Recheck cbc 1 week to trend documented in this encounter Plan of Treatment Upcoming Encounters Date Type Department Care Team (Late st Contact Info) Description 12/24/2023 2:30 PM EST Office Visit [facility] [address] [facility] [address] [place] [address] Jennifer Ramires MD [address] [facility] [place] [address] 12/26/2023 9:40 AM EST Office Visit [facility] [address] [place] [address] Robinson Olson CRNP [address] [place] [address] 12/27/2023 2:30 PM EST Imaging Radiology [facility] [address] [facility] [place] [address] [facility] [place] [address] 01/21/2024 10:15 AM EST Cardiac Studies Cardiac Studies, [facility] [address] [facility] [place] [address] 01/30/2024 Hospital Encounter OR [facility], Operating Room, Main [facility] - 4th Floor [address] [facility] [place] [address] Frank Peraza MD 27 [facility] [address] [place] [address] 02/04/2024 11:20 AM EST Office Visit [facility] [address] [facility] [place] [address] Robinson Olson CRNP [address] [place] [address] 02/14/2024 2:45 PM EDT Office Visit Urology [place] Zhang[place]nette [address] [place] [address] [place] [address] Frank Peraza MD [address] [place] [address] 03/13/2024 2:00 PM EDT Office Visit Dermatology [facility] [address] [facility] [place] [address] Francisco Watson MD [address] [facility] [place] [address] 08/20/2024 10:15 AM EDT Office Visit Ophthalmology, [facility] [address] [facility] [place] [address] Cody Gonzalez DO 21 [facility] [place] [address] Scheduled Procedures Name Priority Associated Diagnoses Date/Ti [...] Additional history exists CKD PHOS USE SMARTSET 13800 01/28/202401/03, 07/26/2022, 12/05/2021, Additional history exists Diabetic Foot Exam 03/06/2024 03/06/2023, 0 01/03/2022, 03/02/2021, Additional history exists GFR 05/17/2024 11/16/2023, 08/03, 07/24/2023, Additional history exists HbA1c 05/28/2024 11/27/2023, 05/03, 01/28/2023, Additional history exists Albumin/Creatinine Ratio 07/12/2024 023, 10/01/2022, 09/11/2021, Additional history exists COLONOSCOPY-ANNUAL AGES 18-100 08/09/2024 08/09/2023, 11/07/2022, 11/07/2022, Additional history exists CKD HGB USE SMARTSET 78817 12/19/202412/19, 12/06/2023, 12/06/2023, Additional history exists Lipid [...] encounter Medical Devices Implanted Type Area Sales Service Rep Device Identifier Shelf Expiration Date Model / Serial / Lot Clareon Iol Aspheric Hydrophobic Acrylic Iol Implanted:Qty: 1 on 04/23/2023 by Cody Gonzalez DO at OR [facility] Lens Left: Eye 11/12/2025 CNA0T0 / [id number] / Viatorr Tips Endoprosthesis 8-10 Mm X 8cm / 2cm Implanted:Qty: 1 on 10/07/2020 by Go Alvarado MD at [facility] Right: Abdomen 03/03/2023 [id number] / / [id number] Description:Viatorr TIPS End oprosthesis 8-10 mm x 8cm / 2cm, Manufactored by [employer] Syr Pf 2ml Embospheres 100-300 - [id number] Implanted:Qty: 1 on 04/18/2021 by Kevin Lim DO at OR [facility] Left: Abdomen [employer] [id number] 11/25/2023 S220GH / / [id number] Syr Pf 2ml Embospheres 100-300 - [id number] Implanted:Qty: 1 on 03/28/2022 at [facility] [employer] [id number] 08/31/2024 S220GH / / [id number] -[id number] Clareon Iol Aspheric Hydrophobic Acrylic Iol Implanted:Qty: 1 on 04/02/2023 by Cody Gonzalez DO at OR [facility] Right: Eye JAZMIN 11/12/2025 CNA0T0 / [id number] / documented as of this encounter Advance Directives Documents on File Type Date Recorded Patient Director Of Business Operations Expl anation Advance Directives and Living Will 12/11/2022 ADVANCE DIRECTIVE / LIVING WILL LIVING WILL Power of Fundraiser 12/11/2022 POWER OF A TTORNEY Latest Code [...] the patient have Health Care Power of Fundraiser? No Full Code 07/22/2014 9:56 PM 07/24/2014 8:18 PM This order reflects the patients wishes and were consensually agreed upon. Question Answer Comments Discussion of Advance Directives occurred with: Patient Does the patient have a Living Will? No Does the patient have Health Care Power of Fundraiser? No Care Teams Spa Associate Relationship Specialty Start Date End Date Francisco Cisse MD [address] [place] [address] PCP - General Internal Medicine 09/04/21 documented as of this encounter
--- OUTSIDE RECORDS SUMMARY | 2024-01-25 17:13 | External Medical Summary ---
Author Name Unknown Address Unknown Organization K01:[facility] - [address] [place] [address] Laboratory Report Ordering Provider Test Date Status CONCEPCIÓN CUENCA 12/23/2023 16:24:23 Final Observation Date Value Abnormality Reference (Units ) Status PSA 12/23/2023 16:24:23 <0.02 <4.10 (ng/ mL) Final Performing Location [facility] - [address] [place] [address]
--- OUTSIDE RECORDS SUMMARY | 2024-01-25 17:13 | External Medical Summary | Summary of Care ---
Author Name Unknown Organization [facility] Address [address] [address] Phone [phone] Care Team Providers Care Senior Interactive Producer Name Role Phone Francisco Cisse MD Primary Care Provider + Encounter Details Date Type Department Care Team (Late st Contact Info) Description 12/23/2023 Orders Only General Internal Medicine [facility] 200 [facility] [place] [address] Francisco Cisse MD 200 [place] [address] Allergies No known active allergiesdocumented as of [...] mRNA, LNP-s, No Pre serve, 2-Dose Series ([employer]) 03/08/2021,02/15/2021 HepA Inact/HepB Recomb>=18yrs old 12/04/2019,04/2019,05/20/2019 11/19/2019 [...] 12/24/2023 2:30 PM EST Office Visit Hematology/Oncology [facility] 200 [facility] [place] [address] Jennifer Ramires MD 200 [facility] [place] [address] 12/26/2023 9:40 AM EST Office Visit Family Practice [facility] [address] [address] Robinson Olson CRNP [address] [place] [address] 12/27/2023 2:30 PM EST Imaging Radiology [facility]st [facility] [address] [address] 01/21/2024 10:15 AM EST Cardiac Studies Cardiac Studies, [facility] [address] [address] 01/29/2024 Hospital Encounter [facility], Operating Room [facility] [address] [phone] Frank Peraza MD 27 [facility] [place] [address] [place] [address] 02/04/2024 11:20 AM EST Office Visit Family Practice [facility] [address] [facility] [place] [place] [address] Robinson Olson CRNP [address] [place] [address] 02/14/2024 2:45 PM EDT Office Visit Urology [place] Fitzpatrick [address] [place] [address] [place] [address] Frank Peraza MD 27 [facility] 270 [place] [address] 03/13/2024 2:00 PM EDT Office Visit Dermatology [facility] 200 [place] [address] Francisco Watson MD 200 [place] [address] 08/20/2024 10:15 AM EDT Office Visit Ophthalmology, [facility] 132 [place] [address] Cody Gonzalez DO 21 [place] [address] Scheduled Procedures Name Priority Associated Diagnoses Date/Ti [...] Additional history exists CKD PHOS USE SMARTSET 48164 01/28/202401/03, 07/26/2022, 12/05/2021, Additional history exists Diabetic Foot Exam 03/06/2024 03/06/2023, 0 01/03/2022, 03/02/2021, Additional history exists GFR 05/17/2024 11/16/2023, 08/03, 07/24/2023, Additional history exists HbA1c 05/28/2024 11/27/2023, 05/03, 01/28/2023, Additional history exists Albumin/Creatinine Ratio 07/12/2024 023, 10/01/2022, 09/11/2021, Additional history exists COLONOSCOPY-ANNUAL AGES 18-100 08/09/2024 08/09/2023, 11/07/2022, 11/07/2022, Additional history exists CKD HGB USE SMARTSET 13750 12/06/202412/19, 12/06/2023, 12/06/2023, Additional history exists Lipid Panel [...] this encounter Medical Devices Implanted Type Area [employer] Music Teacher Device Identifier Shelf Expiration Date Model / Serial / Lot Clareon Iol Aspheric Hydrophobic Acrylic Iol Implanted:Qty: 1 on 04/23/2023 by Cody Gonzalez DO at OR [facility] Lens Left: Eye 11/12/2025 CNA0T0 / [id number] / Viatorr Tips Endoprosthesis 8-10 Mm X 8cm / 2cm Implanted:Qty: 1 on 10/07/2020 by Go Alvarado MD at [facility] Right: Abdomen 03/03/2023 [id number] / / [id number] Description:Viatorr TIPS End oprosthesis 8-10 mm x 8cm / 2cm, Manufactored by [employer] Syr Pf 2ml Embospheres 100-300 - [id number] Implanted:Qty: 1 on 04/18/2021 by Kevin Lim DO at OR [facility] Left: Abdomen [employer] [id number] 11/25/2023 S220GH / / [id number] Syr Pf 2ml Embospheres 100-300 - [id number] Implanted:Qty: 1 on 03/28/2022 at [facility] [employer] [id number] 08/31/2024 S220GH / / [id number] -[id number] Clareon Iol Aspheric Hydrophobic Acrylic Iol Implanted:Qty: 1 on 04/02/2023 by Cody Gonzalez DO at OR [facility] Right: Eye JAZMIN 11/12/2025 CNA0T0 / [id number] / documented as of this encounter [...] LAB OUTSIDE LAB (SEE SCANNED REPORT) HEMOGLOBIN, [id number] LAB OUTSIDE LAB (SEE SCANNED REPORT) PHOSPHORUS-OUTSID [...] (SEE SCANNED REPORT) documented in this encounter Advance Directives Documents on File Type Date Recorded Patient Rover Tender Expl anation Advance Directives and Living Will 12/11/2022 ADVANCE DIRECTIVE / LIVING WILL LIVING WILL Power of Tag Clerk 12/11/2022 POWER OF A TTORNEY Latest [...] the patient have Health Care Power of Tag Clerk? No Full Code 07/22/2014 9:56 PM 07/24/2014 8:18 PM This order reflects the patients wishes and were consensually agreed upon. Question Answer Comments Discussion of Advance Directives occurred with: Patient Does the patient have a Living Will? No Does the patient have Health Care Power of Tag Clerk? No Care Teams Senior Interactive Producer Relationship Specialty Start Date End Date Francisco Cisse MD 200 [place] [address] PCP - General Internal Medicine 09/04/21 documented as of this encounter
--- OUTSIDE RECORDS SUMMARY | 2024-01-25 17:13 | External Medical Summary | Summary of Care ---
Author Name Unknown Organization [facility] Address [address] [facility] [address] Phone [phone] Care Team Providers Care Lead Handler Name Role Phone Francisco Cisse MD Primary Care Provider + Reason for Visit * Reason Onset Date Comments Test Results 12/23/2023 Encounter Details Date Type Department Care Team (Late st Contact Info) Description 12/23/2023 Telephone General Internal Medicine [facility] 200 [facility] [place] [address] Francisco Cisse MD 200 [place] [address] Test Results Allergies No known active allergiesdocumented [...] hemoglobin A1c goal of less than 7.0% ([facility]) Use to test blood sugars [...] mRNA, LNP-s, No Pre serve, 2-Dose Series ([employer]) 03/08/2021,02/15/2021 HepA Inact/HepB Recomb>=18yrs old 12/04/2019,04/2019,05/20/2019 11/19/2019 PPD 06/18/2017, 3,01/09/2012,06/2011 Pneumococcal Conjugate Vacc, 13 Valent (Prevnar) 05/01/2017 Pneumococcal Polysaccharide PPV23 (Pneumovax) 08/28/2022,10/25/2015,07/14/2012 Season Influenza, Quad, PF, Adjuvanted, 65+ Yrs, IM (FLUAD) 10/07/2020(Deferred: Patient Refused - pt says he already had his shot last [facility] at [facility] Handy Lyons and Mckinley Cobian made [...] 12/27/2023 because of his recent MRI at [facility]. Please advise. patient informed and voiced understanding. He has Hospital F/u scheduled with JEFF Lovett at [facility] on 12/26/2023 Pt is agreeable to follow up for labs in one week * Telephone Encounter - Velasquez Thomson LPN - 12/23/2023 12:52 PM EST ----- Message from Francisco Cisse MD sent at 12/23/2023 10:50 AM EST ----- Hgb low at 7.8 but better then last check [facility], how is he feeling? Can he schedule hospital follow up. Recheck cbc 1 week to trend documented in this encounter Plan of Treatment Upcoming Encounters Date Type Department Care Team (Late st Contact Info) Description 12/24/2023 2:30 PM EST Office Visit Hematology/Oncology [facility] 200 [facility] [place] [address] Jennifer Ramires MD 200 [facility] [place] [address] 12/26/2023 9:40 AM EST Office Visit [facility] [address] [place] [address] Robinson Olson CRNP [address] [place] [address] 12/27/2023 2:30 PM EST Imaging Radiology [facility] 1st [facility] [place] [address] [facility] [place] [address] 01/21/2024 10:15 AM EST Cardiac Studies Cardiac Studies, [facility] [address] [facility] [address] [place] [address] 01/30/2024 Hospital Encounter OR [facility], Operating Room, [facility] - 4th Floor 400 [facility] [place] [address] Frank Peraza MD 27 [facility] [address] [place] [address] 02/04/2024 11:20 AM EST Office Visit [facility] [address] [facility] [place] [address] Robinson Olson CRNP [address] [place] [address] 02/14/2024 2:45 PM EDT Office Visit Urology [place] [address] [place] [address] [place] [address] Frank Peraza MD [address] [place] [address] [place] [address] 03/13/2024 2:00 PM EDT Office Visit Dermatology [facility] 200 [facility] [place] [address] Francisco Watson MD 200 [facility] [place] [address] 08/20/2024 10:15 AM EDT Office Visit Ophthalmology, [facility] [address] [facility] [place] [address] Cody Gonzalez DO 21 [facility] [place] [address] Scheduled Procedures Name Priority Associated Diagnoses Date/Ti [...] Additional history exists CKD PHOS USE SMARTSET 55832 01/28/202401/03, 07/26/2022, 12/05/2021, Additional history exists Diabetic Foot Exam 03/06/2024 03/06/2023, 0 01/03/2022, 03/02/2021, Additional history exists GFR 05/17/2024 11/16/2023, 08/03, 07/24/2023, Additional history exists HbA1c 05/28/2024 11/27/2023, 05/03, 01/28/2023, Additional history exists Albumin/Creatinine Ratio 07/12/2024 023, 10/01/2022, 09/11/2021, Additional history exists COLONOSCOPY-ANNUAL AGES 18-100 08/09/2024 08/09/2023, 11/07/2022, 11/07/2022, Additional history exists CKD HGB USE SMARTSET 98365 12/19/202412/19, 12/06/2023, 12/06/2023, Additional history exists Lipid [...] this encounter Medical Devices Implanted Type Area Automobile Bumper Straightener Device Identifier Shelf Expiration Date Model / Serial / Lot Clareon Iol Aspheric Hydrophobic Acrylic Iol Implanted:Qty: 1 on 04/23/2023 by Cody Gonzalez DO at OR [facility] Lens Left: Eye 11/12/2025 CNA0T0 / [id number] / Viatorr Tips Endoprosthesis 8-10 Mm X 8cm / 2cm Implanted:Qty: 1 on 10/07/2020 by Go Alvarado MD at [facility] Right: Abdomen 03/03/2023 [id number] / / [id number] Description:Viatorr TIPS End oprosthesis 8-10 mm x 8cm / 2cm, Manufactored by [employer] Syr Pf 2ml Embospheres 100-300 - [id number] Implanted:Qty: 1 on 04/18/2021 by Kevin Lim DO at OR [facility] Left: Abdomen [employer] [id number] 11/25/2023 S220GH / / [id number] -[id number] Syr Pf 2ml Embospheres 100-300 - [id number] Implanted:Qty: 1 on 03/28/[address] [facility] [employer] [id number] 08/31/2024 S220GH / / [id number] -[id number] Clareon Iol Aspheric Hydrophobic Acrylic Iol Implanted:Qty: 1 on 04/02/2023 by Cody Gonzalez DO at OR [facility] Right: Eye JAZMIN 11/12/2025 CNA0T0 / [id number] / documented as of this encounter Advance Directives Documents on File Type Date Recorded Patient Application Integrator Expl anation Advance Directives and Living Will 12/11/2022 ADVANCE DIRECTIVE / LIVING WILL LIVING WILL Power of Tariff Inspector 12/11/2022 POWER OF A TTORNEY Latest Code [...] the patient have Health Care Power of Tariff Inspector? No Full Code 07/22/2014 9:56 PM 07/24/2014 8:18 PM This order reflects the patients wishes and were consensually agreed upon. Question Answer Comments Discussion of Advance Directives occurred with: Patient Does the patient have a Living Will? No Does the patient have Health Care Power of Tariff Inspector? No Care Teams Lead Handler Relationship Specialty Start Date End Date Francsico Cisse MD 200 [place] [address] PCP - General Internal Medicine 09/04/21 documented as of this encounter
--- OUTSIDE RECORDS SUMMARY | 2024-01-25 17:13 | External Medical Summary ---
Author Name Unknown Address Unknown Organization [id number]:LABORATORY [facility] [place] [facility] - [address] [place] [address] Laboratory Report Ordering Provider Test Date Status CHELSEY BISWAS 12/23/2023 16:24:23 Final Observation Date Value Abnormality Reference (Units ) Status WBC, Total 12/23/2023 16:24:23 3.14 Below low normal 4. 00-10.80 (K/uL) Final RBC 12/23/2023 16:24:23 2.53 4.50-5.25 (M/uL) Final Hemoglobin 12/23/2023 16:24:23 8.0 Below low normal 14 .0-16.8 (g/dL) Final HCT 12/23/2023 16:24:23 24.9 Below low normal 40. 0-48.4 (%) Final MCV 12/23/2023 16:24:23 98.4 82.0-99.5 (fL) Final MCH 12/23/2023 16:24:23 31.6 27.0-34.0 (pg) Final MCHC 12/23/2023 16:24:23 32.1 32.0-36.0 (g/dL) Final RDW 12/23/2023 16:24:23 18.8 11.5-15.5 (%) Final Platelets 12/23/2023 16:24:23 92 Below low normal 140 -400 (K/uL) Final MPV 12/23/2023 16:24:23 11.8 6.6-11.1 ( fL) Final Performing Location LABORATORY [place] [address] - [address] [place] [address]
--- OUTSIDE RECORDS SUMMARY | 2024-01-25 17:13 | External Medical Summary | Summary of Care ---
Author Name Unknown Organization [facility] Address [address] [address] Phone [phone] Care Team Providers Care Plant Quality Manager Name Role Phone Francisco Cisse MD Primary Care Provider + Reason for Visit * Reason Onset Date Comments Test Results 12/23/2023 Encounter Details Date Type Department Care Team (Late st Contact Info) Description 12/23/2023 Telephone General Internal Medicine [facility] 200 [facility] [place] [address] Francisco Cisse MD 200 [place] [address] Test Results Allergies No known active allergiesdocumented [...] mRNA, LNP-s, No Pre serve, 2-Dose Series ([employer]) 03/08/2021,02/15/2021 HepA Inact/HepB Recomb>=18yrs old 12/04/2019,04/2019,05/20/2019 [...] 12/27/2023 because of his recent MRI at [facility]. Please advise. patient informed and voiced understanding. He has Hospital F/u scheduled with JEFF Lovett at [facility] on 12/26/2023 Pt is agreeable to follow up for labs in one week * Telephone Encounter - Velasquez Thomson LPN - 12/23/2023 12:52 PM EST ----- Message from Francisco Cisse MD sent at 12/23/2023 10:50 AM EST ----- Hgb low at 7.8 but better then last check [facility], how is he feeling? Can he schedule hospital follow up. Recheck cbc 1 week to trend documented in this encounter Plan of Treatment Upcoming Encounters Date Type Department Care Team (Late st Contact Info) Description 12/24/2023 2:30 PM EST Office Visit Hematology/Oncology [facility] [place] [address] [place] [address] Jennifer Ramires MD [address] [place] [address] 12/26/2023 9:40 AM EST Office Visit [facility] [address] [place] [address] Robinson Olson CRNP [address] [place] [address] 12/27/2023 2:30 PM EST Imaging Radiology [facility] 1st [facility] [address] [place] [address] 01/21/2024 10:15 AM EST Cardiac Studies Cardiac Studies, [facility] [address] [place] [address] 01/30/2024 Hospital Encounter OR [facility], Operating Room, [facility] - 4th Floor 400 [facility] [place] [address] Frank Peraza MD [address] [place] [address] [place] [address] 02/04/2024 11:20 AM EST Office Visit [facility] [address] [place] [address] Robinson Olson CRNP [address] [place] [address] 02/14/2024 2:45 PM EDT Office Visit Urology [place] Fitzpatrick [address] [place] [address] [place] [address] Frank Peraza MD [address] [place] [address] [place] [address] 03/13/2024 2:00 PM EDT Office Visit Dermatology [facility] [address] [place] [address] Francisco Watson MD 200 [facility] [place], [place] [address] 08/20/2024 10:15 AM EDT Office Visit Ophthalmology, [facility] [address] [place] [address] Cody Gonzalez, DO [address] [place] [address] Scheduled Procedures Name Priority Associated Diagnoses Date/Ti [...] Additional history exists CKD PHOS USE SMARTSET 68785 01/28/202401/03, 07/26/2022, 12/05/2021, Additional history exists Diabetic Foot Exam 03/06/2024 03/06/2023, 0 01/03/2022, 03/02/2021, Additional history exists GFR 05/17/2024 11/16/2023, 08/03, 07/24/2023, Additional history exists HbA1c 05/28/2024 11/27/2023, 05/03, 01/28/2023, Additional history exists Albumin/Creatinine Ratio 07/12/2024 023, 10/01/2022, 09/11/2021, Additional history exists COLONOSCOPY-ANNUAL AGES 18-100 08/09/2024 08/09/2023, 11/07/2022, 11/07/2022, Additional history exists CKD HGB USE SMARTSET 48243 12/19/202412/19, 12/06/2023, 12/06/2023, Additional history exists Lipid [...] this encounter Medical Devices Implanted Type Area Composition Tile Layer Device Identifier Shelf Expiration Date Model / Serial / Lot Clareon Iol Aspheric Hydrophobic Acrylic Iol Implanted:Qty: 1 on 04/23/2023 by Cody Gonzalez DO at OR [facility] Lens Left: Eye 11/12/2025 CNA0T0 / [id number] / Viatorr Tips Endoprosthesis 8-10 Mm X 8cm / 2cm Implanted:Qty: 1 on 10/07/2020 by Go Alvarado MD at [facility] Right: Abdomen 03/03/2023 [id number] / / [id number] Description:Viatorr TIPS End oprosthesis 8-10 mm x 8cm / 2cm, Manufactored by [employer] Syr Pf 2ml Embospheres 100-300 - [id number] Implanted:Qty: 1 on 04/18/2021 by Kevin Lim DO at OR [facility] Left: Abdomen [employer] [id number] 11/25/2023 S220GH / / [id number] -[id number] Syr Pf 2ml Embospheres 100-300 - [id number] Implanted:Qty: 1 on 03/28/2022 at [facility] [employer] [id number] 08/31/2024 S220GH / / [id number] -5 Clareon Iol Aspheric Hydrophobic Acrylic Iol Implanted:Qty: 1 on 04/02/2023 by Cody Gonzalez DO at OR [facility] Right: Eye JAZMIN 11/12/2025 CNA0T0 / [id number] / documented as of this encounter Advance Directives Documents on File Type Date Recorded Patient Pharmacy Care Coordinator Expl anation Advance Directives and Living Will 12/11/2022 ADVANCE DIRECTIVE / LIVING WILL LIVING WILL Power of Western Felt Hat Blocker 12/11/2022 POWER OF A TTORNEY Latest Code [...] the patient have Health Care Power of Western Felt Hat Blocker? No Full Code 07/22/2014 9:56 PM 07/24/2014 8:18 PM This order reflects the patients wishes and were consensually agreed upon. Question Answer Comments Discussion of Advance Directives occurred with: Patient Does the patient have a Living Will? No Does the patient have Health Care Power of Western Felt Hat Blocker? No Care Teams Plant Quality Manager Relationship Specialty Start Date End Date Francisco Cisse MD [address] [place] [address] PCP - General Internal Medicine 09/04/21 documented as of this encounter
--- OUTSIDE RECORDS SUMMARY | 2024-01-25 17:13 | External Medical Summary ---
Author Name Unknown Address Unknown Organization [id number]:[facility] [place] [address] [facility] [address] Laboratory Report Ordering Provider Test Date Status JOLENE PARNELL 12/23/2023 16:24:23 Final Observation Date Value Abnormality Reference (Units ) Status BUN 12/23/2023 16:24:23 19 6-20 (mg/dL) Final Creatinine 12/23/2023 16:24:23 1.4 Above high normal 0.6-1.2 (mg/dL) Final Glomerular filtration rate/1.73 sq M.predicted [Volume Rate/Area] in Serum, Plasma or Blood by Creatinine-based formula (CKD-EPI) 12/23/2023 16:24:23 53 Below low normal >=60 (mL/min) Final eGFR is calculated based on the CKD-EPI 2020 equation SODIUM 12/23/2023 16:24:23 141 135-146 (m mol/L) Final Potassium 12/23/2023 16:24:23 4.5 3.5-5.1 (m mol/L) Final Cl 12/23/2023 16:24:23 112 Above high normal 98 -107 (mmol/L) Final CO2 12/23/2023 16:24:23 21 Below low normal 22- 32 (mmol/L) Final Anion gap 12/23/2023 16:24:23 8 7-15 (mmol /L) Final Glucose 12/23/2023 16:24:23 167 Above high normal 70 -120 (mg/dL) Final Albumin 12/23/2023 16:24:23 3.1 Below low normal 3.8 -5.0 (g/dL) Final AST (Aspartate aminotransferase) 12/23/2023 16:24:23 29 10-50 (U/L) Fin al Alk Phos 12/23/2023 16:24:23 189 Above high normal 35 -130 (U/L) Final Bilirubin, Total 12/23/2023 16:24:23 1.7 Above high no rmal <=1.2 (mg/dL) Final Calcium 12/23/2023 16:24:23 8.0 Below low normal 8.4 -10.2 (mg/dL) Final Protein 12/23/2023 16:24:23 6.3 6.0-8.3 (g /dL) Final ALT (Alanine aminotransferase) 12/23/2023 16:24:23 20 10-50 (U/L) Layo dye Performing Location [facility] [place] [address] [facility] [address]
--- OUTSIDE RECORDS SUMMARY | 2024-01-25 17:13 | External Medical Summary ---
Author Name Unknown Address Unknown Organization K01:LABORATORY [facility] - [address] [facility] [address] Laboratory Report Ordering Provider Test Date Status CHELSEY BISWAS 12/23/2023 16:24:23 Final Observation Date Value Abnormality Reference (Units ) Status Iron 12/23/2023 16:24:23 59 45-176 (ug/dL) Final Iron-binding capacity 12/23/2023 16:24:23 243 Below low normal 250-425 (ug/dL) Final Transferrin Sat % 12/23/2023 16:24:23 24 15-55 (%) Final Performing Location LABORATORY [facility] - [address] [facility] [address]
--- OUTSIDE RECORDS SUMMARY | 2024-01-25 17:13 | External Medical Summary ---
Author Name Unknown Address Unknown Organization K01:LABORATORY [facility] [place] - [address] [place] [address] Laboratory Report Ordering Provider Test Date Status CONCEPCIÓN CUENCA 12/23/2023 16:24:23 Final Observation Date Value Abnormality Reference (Units ) Status RBC, Urine 12/23/2023 16:24:23 50+ Abnormal 0-2 (/HPF) Final WBC, Urine 12/23/2023 16:24:23 0-2 0-2 (/HPF) Final Bacteria [#/area] in Urine sediment by Microscopy high power field 12/23/2023 16:24:23 0-25 0-25 (/HPF) Final Performing Location LABORATORY C - [address] [place] [address]
--- OUTSIDE RECORDS SUMMARY | 2024-01-25 17:13 | External Medical Summary ---
Author Name Unknown Address Unknown Organization K0G:LABORATORY [place] [address] - [address] [place] [address] Laboratory Report Ordering Provider Test Date Status CHELSEY BISWAS 12/23/2023 16:24:23 Final Observation Date Value Abnormality Reference (Units ) Status SYNC LEUKOCYTES IN BLOOD BY AUTOMATED COUNT 12/23/2023 16:24:23 3.14 Below low normal 4.00-10.80 (K/uL) Final Segs 12/23/2023 16:24:23 63.0 40.0-75.0 (%) Final Lymphs % 12/23/2023 16:24:23 22.9 18.0-42.0 (%) Final Monos 12/23/2023 16:24:23 6.1 1.0-11.0 (%) Final Eosinophils 12/23/2023 16:24:23 6.7 Above high normal 0.0-6.0 (%) Final Basos 12/23/2023 16:24:23 1.3 0.0-2.0 (%) Final Absolute Segs 12/23/2023 16:24:23 1.98 1.80-7.70 (K/uL) Final Lymphs, absolute 12/23/2023 16:24:23 0.72 Below low normal 1.00-4.80 (K/ul) Final Monos, Abs 12/23/2023 16:24:23 0.19 0.00-1.10 (K/uL) Final Eos, Abs 12/23/2023 16:24:23 0.21 0.00-0.70 (K/uL) Final Basos, Abs 12/23/2023 16:24:23 0.04 0.00-0.20 (K/uL) Final Performing Location LABORATORY [place] [address] - [address] [place] [address]
--- OUTSIDE RECORDS SUMMARY | 2024-01-25 17:13 | External Medical Summary ---
Author Name Unknown Address Unknown Organization K01:[place] [place] [address] [facility] [address] [facility] [address] Laboratory Report Ordering Provider Test Date Status JOLENE PARNELL 12/23/2023 16:24:23 Final Observation Date Value Abnormality Reference (Units ) Status Alpha-Fetoprotein 12/23/2023 16:24:23 <1.8 0. 0-8.3 (ng/mL) Final Performing Location LABORATORY C - [address] [facility] [address]
--- OUTSIDE RECORDS SUMMARY | 2024-01-25 17:14 | External Medical Summary | Summary of Care ---
Author Name Unknown Organization [facility] Address [address] [place] [address] Phone [phone] Care Team Providers Care Glass Belt Sander Name Role Phone Francisco Cisse MD Primary Care Provider + Reason for Visit * Reason Onset Date Comments case management 12/17/2023 Encounter Details Date Type Department Care Team (Late st Contact Info) Description 12/17/2023 Vmware Architect Telephone Care Coordination and Integration [address], [place] [phone] Ximena Pretty RN [address], [place] [phone] case management Allergies No known active allergiesdocumented as of this encounter (statuses as of 12/17/2023) Medications Medication Sig Dispensed Refills Start Date End Date Status Tylenol 325 MG Oral Capsule (Acetaminophen) Take 650 mg by mouth every 8 hours as needed for Pain (fever). 0 Active OneTouch Verio In Vitro Strip (Glucose Blood)Indications:Ty pe 2 diabetes mellitus with hemoglobin A1c goal of less than 7.0% ([facility]) Use to test blood sugars 3 times [...] as of this encounter (statuses as of 12/17/2023) Active Problems Problem Noted Date Diagnosed Date [...] as of this encounter (statuses as of 12/17/2023) Resolved Problems Problem Noted Date Diagnosed Date [...] as of this encounter (statuses as of 12/17/2023) Immunizations Name Administration Dates Next Due COVID-19 mRNA, LNP-s, No Pre serve, 2-Dose Series ([employer]) 03/08/2021,02/15/2021 HepA Inact/HepB Recomb>=18yrs old 12/04/2019,04/2019,05/20/2019 11/19/2019 PPD 06/18/2017, 3,01/09/2012,03/06/2011 Pneumococcal Conjugate Vacc, 13 Valent (Prevnar) 05/01/2017 Pneumococcal Polysaccharide PPV23 (Pneumovax) 08/28/2022,10/25/2015,07/14/2012 Season Influenza, Quad, PF, Adjuvanted, 65+ Yrs, IM (FLUAD) 10/07/2020(Deferred: Patient Refused - pt says he already had his shot last month at [facility] and [facility]in[facility] [...] Telephone Encounter - Ximena Pretty RN - 12/17/2023 1:40 PM EST Consulted with Hem/Onc. They recommend that patient go to ED and get sooner appt with Dr Jc. Patient made aware. He states that he is not going to go to the ED. Explained to patient that this is the recommendation. He verbalizes understanding. Hem/Onc Scheduling; please contact patient for HD appt with Dr jc. Thank you! * Telephone Encounter - Gege Herbert MD - 12/17/2023 1:[address] Johnson is out Today . It's better to have this arranged by hematology. * Telephone Encounter - Ximena Pretty RN - 12/17/2023 12:56 PM EST Patient was discharged from [facility] on Saturday. His hgb on discharge was 7.2 He states that he is still having bloody urine. He states that he received blood transfusions in the past, he is not sure who ordered these. He does not want to have to go inpatient for a blood transfusion. He would like to have it outpatient at [facility]. He states that Dr Jc was checking his HGB once a month. Dr Cisse/dr Jc: please advise. documented in this encounter Plan of Treatment Upcoming Encounters Date Type Department Care Team (Late st Contact Info) Description 12/26/2023 9:40 AM EST Office Visit [facility] [address] [facility] [place] [address] Robinson Olson CRNP 132 [facility] [place] [address] 12/27/2023 2:30 PM EST Imaging [facility] [address] [facility] [place] [address] 01/07/2024 11:00 AM EST Procedure Only Urology, [facility] [address] [facility] [place] [address] Frank Peraza MD [address] [place] [address] 01/20/2024 4:00 PM EST Office Visit Hematology/Oncology [facility] [address] [facility] [address] [address] Jennifer Jc MD [address] [facility] [place] [address] 02/04/2024 11:20 AM EST Office Visit [facility] [address] [facility] [place] [address] Robinson Olson CRNP 132 [facility] [place] [address] 03/13/2024 2:00 PM EDT Office Visit Dermatology [facility] [address] [place] [address] Francisco Watson MD [address] [place] [address] 08/20/2024 10:15 AM EDT Office Visit Ophthalmology, [facility] [address] [facility] [place] [address] Cody Gonzalez, DO [address] [place] [address] Scheduled Procedures Name Priority Associated Diagnoses Date/Ti [...] Additional history exists CKD PHOS USE SMARTSET 53577 01/28/202401/03, 07/26/2022, 12/05/2021, Additional history exists Diabetic Foot Exam 03/06/2024 03/06/2023, 0 01/03/2022, 03/02/2021, Additional history exists GFR 05/17/2024 11/16/2023, 08/03, 07/24/2023, Additional history exists HbA1c 05/28/2024 11/27/2023, 05/03, 01/28/2023, Additional history exists Albumin/Creatinine Ratio 07/12/2024 023, 10/01/2022, 09/11/2021, Additional history exists COLONOSCOPY-ANNUAL AGES 18-100 08/09/2024 08/09/2023, 11/07/2022, 11/07/2022, Additional history exists CKD HGB USE SMARTSET 68779 12/06/202412/06, 12/06/2023, 11/16/2023, Additional history exists Lipid [...] this encounter Medical Devices Implanted Type Area Circus Agent Device Identifier Shelf Expiration Date Model / Serial / Lot Clareon Iol Aspheric Hydrophobic Acrylic Iol Implanted:Qty: 1 on 04/23/2023 by Cody Gonzalez DO at OR [facility] Lens Left: Eye 11/12/2025 CNA0T0 / [id number] / Viatorr Tips Endoprosthesis 8-10 Mm X 8cm / 2cm Implanted:Qty: 1 on 10/07/2020 by Go Alvarado MD at [facility] Right: Abdomen 03/03/2023 [id number] / / [id number] Description:Viatorr TIPS End oprosthesis 8-10 mm x 8cm / 2cm, Manufactored by [employer] Syr Pf 2ml Embospheres 100-300 - [id number] Implanted:Qty: 1 on 04/18/2021 by Kevin Lim DO at OR [facility] Left: Abdomen [employer] [id number] 11/25/2023 S220GH / / [id number] Syr Pf 2ml Embospheres 100-300 - [id number] Implanted:Qty: 1 on 03/28/2022 at [facility] [employer] [id number] 08/31/2024 S220 / / [id number] -[id number] Clareon Iol Aspheric Hydrophobic Acrylic Iol Implanted:Qty: 1 on 04/02/2023 by Cody Gonzalez DO at [facility] Right: Eye JAZMIN 11/12/2025 A0T0 / [id number] / documented as of this encounter Advance Directives Documents on File Type Date Recorded Patient Fire Extinguisher Sprinkler Inspector Expl anation Advance Directives and Living Will 12/11/2022 ADVANCE DIRECTIVE / LIVING WILL LIVING WILL Power of Automatic Paint Sprayer Operator 12/11/2022 POWER OF A TTORNEY Latest [...] patient have Health Care Power of Automatic Paint Sprayer Operator? No Full Code 07/22/2014 9:56 PM 07/24/2014 8:18 PM This order reflects the patients wishes and were consensually agreed upon. Question Answer Comments Discussion of Advance Directives occurred with: Patient Does the patient have a Living Will? No Does the patient have Health Care Power of Automatic Paint Sprayer Operator? No Care Teams Glass Belt Sander Relationship Specialty Start Date End Date Francisco Cisse MD [address] [place] [address] PCP - General Internal Medicine 09/04/21 documented as of this encounter
--- OUTSIDE RECORDS SUMMARY | 2024-01-25 17:14 | External Medical Summary ---
Author Name Unknown Address Unknown Organization K01:[facility] - [address] [place] [id number] Laboratory Report Ordering Provider Test Date Status JOELLENCONCEPCIÓN 12/19/2023 14:00:58 Final Observation Date Value Abnormality Reference (Units ) Status Bacteria identified in Specimen by Culture 12/19/2023 14:00:58 < 100 colonies/ml (no growth) Final Test: Culture, Urine, Quanti tative
Specimen Source: Urine, Cystoscopy
Specimen Type: Urine
Specimen Date: 12/19/2023 2:00 PM
Result Date: 12/20/2023 3:12 PM
Result Status: Final result
Resulting Lab: [facility]
[address]
[place] [address]

CULTURE

< 100 colonies/ml (no growth)

null Performing Location [facility] - [address] [facility] [address]
--- OUTSIDE RECORDS SUMMARY | 2024-01-25 17:14 | External Medical Summary | Summary of Care ---
Author Name Unknown Organization [facility] Address [address] [facility] [place] [address] Phone [phone] Care Team Providers Care Front End Web Developer Name Role Phone Francisco Cisse MD Primary Care Provider + Encounter Details Date Type Department Care Team (Late st Contact Info) Description 12/19/2023 Orders Only PATIENT PORTAL DO NOT DELETE THIS DEPT USED BY [place] [address] Allergies No known active allergiesdocumented as of [...] already had his shot last month at [facility] [...] [address] [place] [address] [place] [address] Frank Peraza MD [address] [place] [address] [place] [address] 12/24/2023 2:30 PM EST Office Visit Hematology/Oncology [facility] [address] [facility] [place] [address] Jennifer Ramires MD [address] [facility] [place] [address] 12/26/2023 9:40 AM EST Office Visit [facility] [address] [place] [address] Robinson Olson CRNP [address] [place] [address] 12/27/2023 2:30 PM EST Imaging Radiology [facility] [address] [place] [address] 02/04/2024 11:20 AM EST Office Visit [facility] [address] [place] [address] Robinson Olson CRNP [address] [place] [address] 03/13/2024 2:00 PM EDT Office Visit Dermatology [facility] [address] [facility] [place] [address] Francisco Watson MD [address] [facility] [place] [address] 08/20/2024 10:15 AM EDT Office Visit Ophthalmology, [facility] [address] [facility] [place] [address] Cody Gonzalez, DO [address] [place] [address] Scheduled Procedures Name Priority Associated Diagnoses Date/Ti [...] Additional history exists CKD PHOS USE SMARTSET 05637 01/28/202401/03, 07/26/2022, 12/05/2021, Additional history exists Diabetic Foot Exam 03/06/2024 03/06/2023, 0 01/03/2022, 03/02/2021, Additional history exists GFR 05/17/2024 11/16/2023, 08/03, 07/24/2023, Additional history exists HbA1c 05/28/2024 11/27/2023, 05/03, 01/28/2023, Additional history exists Albumin/Creatinine Ratio 07/12/2024 023, 10/01/2022, 09/11/2021, Additional history exists COLONOSCOPY-ANNUAL AGES 18-100 08/09/2024 08/09/2023, 11/07/2022, 11/07/2022, Additional history exists CKD HGB USE SMARTSET 58565 12/06/202412/06, 12/06/2023, 11/16/2023, Additional history exists Lipid [...] this encounter Medical Devices Implanted Type Area Jacquard Fixer Device Identifier Shelf Expiration Date Model / Serial / Lot Clareon Iol Aspheric Hydrophobic Acrylic Iol Implanted:Qty: 1 on 04/23/2023 by Cody Gonzalez DO at OR [facility] Lens Left: Eye 11/12/2025 CNA0T0 / [id number] / Viatorr Tips Endoprosthesis 8-10 Mm X 8cm / 2cm Implanted:Qty: 1 on 10/07/2020 by Go Alvarado MD at [facility] Right: Abdomen 03/03/2023 [id number] / / [id number] Description:Viatorr TIPS End oprosthesis 8-10 mm x 8cm / 2cm, Manufactored by [employer] Syr Pf 2ml Embospheres 100-300 - [id number] Implanted:Qty: 1 on 04/18/2021 by Kevin Lim DO at OR [facility] Left: Abdomen [employer] [id number] 11/25/2023 S220GH / / [id number] Syr Pf 2ml Embospheres 100-300 - [id number] Implanted:Qty: 1 on 03/28/2022 at [facility] [employer] [id number] 08/31/2024 S220GH / / [id number] -[id number] Clareon Iol Aspheric Hydrophobic Acrylic Iol Implanted:Qty: 1 on 04/02/2023 by Cody Gonzalez DO at OR [facility] Right: Eye JAZMIN 11/12/2025 CNA0T0 / [id number] / documented as of this encounter Advance Directives Documents on File Type Date Recorded Patient Drum Handler Expl anation Advance Directives and Living Will 12/11/2022 ADVANCE DIRECTIVE / LIVING WILL LIVING WILL Power of Gathering Machine Feeder 12/11/2022 POWER OF A TTORNEY [...] the patient have Health Care Power of Gathering Machine Feeder? No Full Code 07/22/2014 9:56 PM 07/24/2014 8:18 PM This order reflects the patients wishes and were consensually agreed upon. Question Answer Comments Discussion of Advance Directives occurred with: Patient Does the patient have a Living Will? No Does the patient have Health Care Power of Gathering Machine Feeder? No Care Teams Front End Web Developer Relationship Specialty Start Date End Date Francisco Cisse MD [address] [place] [address] PCP - General Internal Medicine 09/04/21 documented as of this encounter
--- OUTSIDE RECORDS SUMMARY | 2024-01-25 17:14 | External Medical Summary | Summary of Care ---
Author Name Unknown Organization [facility] Address [address] [place] [facility] [place] [address] Phone [phone] Care Team Providers Care Survey Project Manager Name Role Phone Francisco Cisse MD Primary Care Provider + Reason for Visit * Reason Comments Cystoscopy * Evaluate & Treat - Unlimited Visits (Within 3 days (urgent)) - Authorized Specialty Diagnoses / Procedures Referred By Chacho fleming Referred To Contact Urology Diagnoses Recurrent gross hematuria History of prostate cancer History of radiation therapy Suprapubic pain, acute Shelbie Ayers MD [address] [place] [address] Referral ID Status Reason Start Date Expiration Date Visits Requested Visits Authorized [id number] Authorized Specialty Services Required 3 [phone] Encounter Details Date Type Department Care Team (Late st Contact Info) Description 12/19/2023 1:30 PM EST Office Visit Urology Lynnette Fitzpatrick [address] [place] [address] [place] [address] Frank Peraza MD [address] [place] [address] [place] [address] Abnormal cystoscopy*; Left renal mass; Prostate cancer (HCC); Hematuria, gross Allergies No known active allergiesdocumented as of [...] already had his shot last month at [facility] Handy Lyons and Mckinley Cobian [...] Peraza MD - 12/19/2023 1:30 PM EST [id number] PCP: FRANC[address] [place], [place] [id number] Luis Hale is a 73 year old male, who presents for cystoscopy for evaluation of hematuria. It hasbeen 9 months since the patient's last evaluation. Patient's past notes reviewed. CT scan done December 2023 demonstrates asymmetric bladder thickening, hepatic lesions. Inpatient urology consultations and notes from [facility] are also reviewed. No recent PSA value is appreciated. Prostate Cancer: Diagnosed Nov 2020. Duane 3+3 CAP in every core. High risk decipher score. Lien started Jan 2021, last injection Jan 2021. [...] 2.5 mg 2.5 mg Nebulizer PRN Michaela, William Botello PA-C Albuterol Sulfate (Proventil) (5 MG/ML) 0.5% *conc* inhalation solution 2.5 mg 2.5 mg Nebulizer William Palencia PA-C 2.5 mg at 03/20/23 0913 Review of patient's allergies indicates: No Known Allergies 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: 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 Tobacco Use Smoking status: Never Smokeless tobacco: Never Substance Use Topics Alcohol use: Not Currently Comment: 1970 Vaping/E-Cigarette Use Vaping/E-Cigarette Use Never User Vaping/E-Cigarette Substances Nicotine No Other No Flavoring No THC No Cannabidiol (CBD) No Vaping/E-Cigarette Devices Disposable No Pre-filled or Refillable Cartridge No Refillable Tank No Past Surgical History: Procedure Laterality Date CATARACT SURGERY,COMPLEX Right 04/02/2023 EXTRACAPSULAR CATARACT REMOVAL COMPLEX WITH IOL performed by Cody Gonzalez DO at OR [facility] CATARACT SURGERY,COMPLEX Left 04/23/2023 LEFT EXTRACAPSULAR CATARACT REMOVAL COMPLEX WITH IOL performed by Cody Gonzalez DO at OR [facility] COLONOSCOPY 08/27/2005 lock haven/hemorrhoids non internal COLONOSCOPY, DIAGNOSTIC (RECTUM) 04/16/2013 COLONOSCOPY FLEXIBLE PROXIMAL DIAGNOSTIC performed by Salvador Lopez MD at ENDOSCOPY [facility], adenomatous polyps repeat colonoscopy in 3 years COLONOSCOPY, DIAGNOSTIC (RECTUM) 05/03/2016 adenomatous polyps, diverticulosis, repeat 5 yrs/COLONOSCOPY FLEXIBLE PROXIMAL DIAGNOSTIC performedby Salvador Lopez MD at ENDOSCOPY [facility] COLONOSCOPY, DIAGNOSTIC (RECTUM) 07/19/2020 adenomatous & hyperplastic polyps, diverticulosis, repeat 3 yrs / [facility] COLONOSCOPY, DIAGNOSTIC (RECTUM) 11/30/2021 mild XRT proctitis, diverticulosis / COLONOSCOPY FLEXIBLE PROXIMAL DIAGNOSTIC performed by Barbara March DO at ENDOSCOPY [facility] COLONOSCOPY, DIAGNOSTIC (RECTUM) 02/01/2022 Mild XRT proctitis / COLONOSCOPY FLEXIBLE PROXIMAL DIAGNOSTIC performed by Barbara March DO at ENDOSCOPY [facility] COLONOSCOPY, DIAGNOSTIC (RECTUM) N/A 11/07/2022 poor prep/diverticulosis sigmoid colon/rectal angioectasias consistent with radiation proctopathy/Colonoscopy/[place] COLONOSCOPY, DIAGNOSTIC (RECTUM) N/A 08/09/2023 poor prep/moderate diverticulosis/hemorrhoids/biopsies show adenomatous and hyperplastic polyps/recall 1 years/Colonoscopy/[place] CT ABDOMEN W IV AND W ORAL CONTRAST 01/10/2010 EGD, FLEXIBLE, DIAGNOSTIC 07/22/2014 GE varices oozing blood, gastric polyp/ESOPHAGOGASTRODUODENOSCOPY (EGD), FLEXIBLE, TRANSORAL, DIAGNOSTIC performed by Juaquin Arrington MD at ENDOSCOPY [facility] EGD, FLEXIBLE, DIAGNOSTIC 07/23/2014 ESOPHAGOGASTRODUODENOSCOPY (EGD), FLEXIBLE, TRANSORAL, DIAGNOSTIC performed by Sophie Merino MD at ENDOSCOPY [facility] EGD, FLEXIBLE, DIAGNOSTIC 06/02/2019 eso & gastric varices, gastric polyps/ESOPHAGOGASTRODUODENOSCOPY (EGD), FLEXIBLE, TRANSORAL, DIAGNOSTIC performed by Salvador Lopez MD at ENDOSCOPY [facility] EGD, FLEXIBLE, DIAGNOSTIC 03/25/2020 portal hypertensive gastropathy, esophageal varices / INPT [facility] EGD, FLEXIBLE, DIAGNOSTIC 07/19/2020 eso varices, portal hypertensive gastropathy, repeat 3 mo / [facility] EGD, FLEXIBLE, DIAGNOSTIC 10/25/2020 Portal hypertensive gastropathy, eso varices / [facility] EGD, FLEXIBLE, DIAGNOSTIC 08/202222 Grade I esophageal varices / [facility] EGD, FLEXIBLE, DIAGNOSTIC N/A 09/11/2022 grade II esophageal varices/gastric antral vascular ectasia, treated with APC/repeat 3 months/[place] EGD, FLEXIBLE, DIAGNOSTIC N/A 11/07/2022 grade III esophageal varices, banded/gastric antral vascular ectasia/repeat 2 months/[place] EGD, FLEXIBLE, DIAGNOSTIC N/A 02/01/2023 [facility]< egd. / single G2 varix, banded and varices eradicated / no specimens collected / egd in 1 to 2 months / EGD, FLEXIBLE, DIAGNOSTIC N/A 08/09/2023 portal hypertensive gastropathy/repeat 1 year/[place] EGD, FLEXIBLE, DIAGNOSTIC 05/22/2023 GAVE, repeat 4-6 wks / [facility] IR CANCER THERASPHERE EMBOLIZATION 03/28/2022 IR EMBOLIZATION Left 04/18/2021 IMAGING SUPERVISION & INTERPRETATION TRANSCATHETER THERAPY, EMBOLIZATION performed by Kevin Lim DO at OR [facility] IR EMBOLIZATION ARTERIAL NON HEMMORHAGE Left 02/21/2022 EMBOLIZATION ARTERIAL; SUPERVISION & INTERPRETATION performed by Kevin Lim DO at OR [facility] IR EMBOLIZATION ARTERIAL NON HEMMORHAGE Left 06/05/2022 EMBOLIZATION ARTERIAL; SUPERVISION & INTERPRETATION performed by Kevin Lim DO at OR [facility] IR VENOUS TIPS 10/07/2020 REMOVAL OF TONSILS, UNDER AGE 12 age 6-7 Tonsils Removal,<12 Y/O SIGMOIDOSCOPY, DIAGNOSTIC 04/12/2022 radiation proctitis, diverticulosis / [facility] TIPS, REVISION N/A 01/24/2021 REVISION TRANSVENOUS INTRAHEPATIC PORTOSYSTEMIC SHUNT performed by Kevin Lim DO at OR [facility] TIPS, REVISION Right 10/19/2022 REVISION TRANSVENOUS INTRAHEPATIC PORTOSYSTEMIC SHUNT performed by Howie Valdovinos MD at OR [facility] TIPS, REVISION Right 02/20/2023 REVISION TRANSVENOUS INTRAHEPATIC PORTOSYSTEMIC SHUNT performed by Kevin Lim DO at OR [facility] Past Medical History: Diagnosis Date Acquired thrombocytopenia (HCC) 09/05/2017 Allergic rhinitis Anemia Anxiety and depression Aortic valve sclerosis 02/01/2023 Benign neoplasm of colon 04/16/2013 COLONOSCOPY FLEXIBLE PROXIMAL DIAGNOSTIC performed by Salvador Lopez MD at ENDOSCOPY [facility], adenomatous polyps repeat colonoscopy in 3 [...] for the procedure. A well lubricated 16 Lithuanian flexible cystoscope was introduced through the meatus [...] the procedure well without complications or difficulties. Polymerization Supervisor was present for entire procedure. Perioperative Bactrim [...] with next labs Obtain outside imaging from [facility] into PACS Cysto, bladder biopsy, [...] Patient tolerated well. documented in this encounter Plan of Treatment Upcoming Encounters Date Type Department Care Team (Late st Contact Info) Description 12/24/2023 2:30 PM EST Office Visit Hematology/Oncology [facility] [place] [address] [place] [address] Jennifer Ramires MD [facility] [place] [address] 12/26/2023 9:40 AM EST [facility] Visit [facility] [address] Robinson Olson [facility] [address] 12/27/2023 2:30 PM EST Imaging Radiology [facility] [address] [facility] 132 [facility] [place] [address] 02/04/2024 11:20 AM EST Office [facility] [address] Robinson Olson CRNP [facility] [address] 03/13/2024 2:00 PM EDT Office Visit Dermatology [facility] [address] [facility] [place] [address] Francisco Watson MD [address] [facility] [place] [address] 08/20/2024 10:15 AM EDT Office Visit [facility]hthalmology, [facility] [address] Cody Gonzalez DO [address] [place] [address] Scheduled Orders Name Type Priority Associated Diagnoses Orde r Schedule PSA Lab Routine Prostate cancer (HCC) Expected: 12/19/2023, Expires: 12/19/2024 CULTURE, URINE, QUANTITATIVE Lab Routine Hematuria, gross Expected: 12/19/2023, Expires: 12/19/2024 CYTOLOGY Pathology Routine Hematuria, gross Ordered: 12/19/2023 CYSTOSCOPY Procedures Routine Hematuria, gross Ordered: 12/19/2023 Scheduled Procedures Name Priority Associated Diagnoses Date/Ti pa CYSTOURETHROSCOPY WITH FULGU RATION MEDIUM BLADDER TUMOR [...] Additional history exists CKD PHOS USE SMARTSET 50459 01/28/202401/03, 07/26/2022, 12/05/2021, Additional history exists Diabetic Foot Exam 03/06/2024 03/06/2023, 0 01/03/2022, 03/02/2021, Additional history exists GFR 05/17/2024 11/16/2023, 08/03, 07/24/2023, Additional history exists HbA1c 05/28/2024 11/27/2023, 05/03, 01/28/2023, Additional history exists Albumin/Creatinine Ratio 07/12/2024 023, 10/01/2022, 09/11/2021, Additional history exists COLONOSCOPY-ANNUAL AGES 18-100 08/09/2024 08/09/2023, 11/07/2022, 11/07/2022, Additional history exists CKD HGB USE SMARTSET 98926 12/06/202412/06, 12/06/2023, 11/16/2023, Additional history exists Lipid [...] this encounter Medical Devices Implanted Type Area It Application Development Manager Device Identifier Shelf Expiration Date Model / Serial / Lot Clareon Iol Aspheric Hydrophobic Acrylic Iol Implanted:Qty: 1 on 04/23/2023 by Cody Gonzalez DO at OR [facility] Lens Left: Eye 11/12/2025 CNA0T0 / [id number] / Viatorr Tips Endoprosthesis 8-10 Mm X 8cm / 2cm Implanted:Qty: 1 on 10/07/2020 by Go Alvarado MD at [facility] Right: Abdomen 03/03/2023 [id number] / / [id number] Description:Viatorr TIPS End oprosthesis 8-10 mm x 8cm / 2cm, Manufactored by [employer] Syr Pf 2ml Embospheres 100-300 - [id number] Implanted:Qty: 1 on 04/18/2021 by Kevin Lim DO at OR [facility] Left: Abdomen [employer] [id number] 11/25/2023 S220GH / / [id number] -[id number] Syr Pf 2ml Embospheres 100-300 - [id number] Implanted:Qty: 1 on 03/28/2022 at [facility] [employer] [id number] 08/31/2024 S220GH / / [id number] -5 Clareon Iol Aspheric Hydrophobic Acrylic Iol Implanted:Qty: 1 on 04/02/2023 by Cody Gonzalez DO at OR [facility] Right: Eye JAZMIN 11/12/2025 CNA0T0 / [id number] / documented as of this encounter Visit Diagnoses Diagnosis Abnormal cystoscopy- Primary Other nonspecific abnormal finding Left renal mass Unspecified disorder of kidney and ureter Prostate cancer (HCC) Malignant neoplasm of prostate Hematuria, gross Gross hematuria documented in this encounter Advance Directives Documents on File Type Date Recorded 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 No Full Code 07/22/2014 9:56 PM 07/24/2014 8:18 PM This order reflects the patients wishes and were consensually agreed upon. Question Answer Comments Discussion of Advance Directives occurred with: Patient Does the patient have a Living Will? No Does the patient have Health Care Power of Station Cleaning Porter? No Care Teams Survey Project Manager Relationship Specialty Start Date End Date Francisco Cisse MD [address] [place] [id number] PCP - General Internal Medicine 09/04/21 documented as of this encounter
--- OUTSIDE RECORDS SUMMARY | 2024-01-25 17:14 | External Medical Summary | Summary of Care ---
Author Name Unknown Organization [facility] Address [address] [place] [address] Phone [phone] Care Team Providers Care Figure Model Name Role Phone Francisco Cisse MD Primary Care Provider + Reason for Visit * Reason Onset Date Comments case management 12/17/2023 Encounter Details Date Type Department Care Team (Late st Contact Info) Description 12/17/2023 Rf Design Engineer Telephone Care Coordination and Integration [address] [place], [place] [phone] Ximena Pretty RN [address], [place] [phone] case management Allergies No known active allergiesdocumented [...] goal of less than 7.0% ([facility]) Use to test blood sugars 3 [...] mRNA, LNP-s, No Pre serve, 2-Dose Series (Protein Forest) 03/08/2021,02/15/2021 HepA Inact/HepB Recomb>=18yrs old 12/04/2019,04/2019,05/20/2019 11/19/2019 [...] 12:56 PM EST Patient was discharged from [facility] on Saturday. His hgb on discharge was 7.2 He states that he is still having bloody urine. He states that he received blood transfusions in the past, he is not sure who ordered these. He does not want to have to go inpatient for a blood transfusion. He would like to have it outpatient at [facility]. He states that Dr Jc was checking his HGB once a month. Dr Cisse/dr Jc: please advise. documented in this encounter Plan of Treatment Upcoming Encounters Date Type Department Care Team (Late st Contact Info) Description 12/26/2023 9:40 AM EST Office Visit [facility] 132 [facility] [place] [address] Robinson Olson CRNP 132 [facility] [place] [address] 12/27/2023 2:30 PM EST Imaging [facility] 132 [facility] [place] [address] 01/07/2024 11:00 AM EST Procedure Only Urology, [facility] 132 [facility] [place] [address] Frank Peraza MD [address] [place] [address] 01/20/2024 4:00 PM EST Office Visit Hematology/Oncology [facility] [address] [facility] [place] [address] Jennifer Jc MD 200 [facility] [place] [address] 02/04/2024 11:20 AM EST Office [facility] 132 [facility] [place] [address] Robinson Olson CRNP 132 [facility] [place] [address] 03/13/2024 2:00 PM EDT Office Visit Dermatology [facility] [address] [place] [address] Francisco Watson MD [address] [place] [address] 08/20/2024 10:15 AM EDT Office Visit Ophthalmology, [facility] 132 [facility] [place] [address] Cody Gonzalez, DO [address] [place] [address] Scheduled Procedures Name Priority Associated Diagnoses Date/Ti [...] Additional history exists CKD PHOS USE SMARTSET 23762 01/28/202401/03, 07/26/2022, 12/05/2021, Additional history exists Diabetic Foot Exam 03/06/2024 03/06/2023, 0 01/03/2022, 03/02/2021, Additional history exists GFR 05/17/2024 11/16/2023, 08/03, 07/24/2023, Additional history exists HbA1c 05/28/2024 11/27/2023, 05/03, 01/28/2023, Additional history exists Albumin/Creatinine Ratio 07/12/2024 023, 10/01/2022, 09/11/2021, Additional history exists COLONOSCOPY-ANNUAL AGES 18-100 08/09/2024 08/09/2023, 11/07/2022, 11/07/2022, Additional history exists CKD HGB USE SMARTSET 64587 12/06/202412/06, 12/06/2023, 11/16/2023, Additional history exists Lipid [...] this encounter Medical Devices Implanted Type Area Motor Setter Device Identifier Shelf Expiration Date Model / Serial / Lot Clareon Iol Aspheric Hydrophobic Acrylic Iol Implanted:Qty: 1 on 04/23/2023 by Cody Gonzalez DO at OR [facility] Lens Left: Eye 11/12/2025 CNA0T0 / [id number] / Viatorr Tips Endoprosthesis 8-10 Mm X 8cm / 2cm Implanted:Qty: 1 on 10/07/2020 by Go Alvarado MD at [facility] Right: Abdomen 03/03/2023 [id number] / / [id number] Description:Viatorr TIPS End oprosthesis 8-10 mm x 8cm / 2cm, Manufactored by [employer] Syr Pf 2ml Embospheres 100-300 - [id number] Implanted:Qty: 1 on 04/18/2021 by Kevin Lim DO at OR [facility] Left: Abdomen [employer] [id number] 11/25/2023 S220GH / / [id number] -[id number] Syr Pf 2ml Embospheres 100-300 - [id number] Implanted:Qty: 1 on 03/28/2022 at [facility] [employer] [id number] 08/31/2024 S220 / / [id number] -5 Clareon Iol Aspheric Hydrophobic Acrylic Iol Implanted:Qty: 1 on 04/02/2023 by Cody Gonzalez DO at [facility] Right: Eye JAZMIN 11/12/2025 A0T0 / [id number] / documented as of this encounter Advance Directives Documents on File Type Date Recorded Patient Senior Safety Management Consultant Expl anation Advance Directives and Living Will 12/11/2022 ADVANCE DIRECTIVE / LIVING WILL LIVING WILL Power of Political Scientist 12/11/2022 POWER OF A TTORNEY Latest Code [...] the patient have Health Care Power of Political Scientist? No Full Code 07/22/2014 9:56 PM 07/24/2014 8:18 PM This order reflects the patients wishes and were consensually agreed upon. Question Answer Comments Discussion of Advance Directives occurred with: Patient Does the patient have a Living Will? No Does the patient have Health Care Power of Political Scientist? No Care Teams Figure Model Relationship Specialty Start Date End Date Francisco Cisse MD [address] [place] [address] PCP - General Internal Medicine 09/04/21 documented as of this encounter
--- OUTSIDE RECORDS SUMMARY | 2024-01-25 17:14 | External Medical Summary | Summary of Care ---
Author Name Unknown Organization [facility] Address [address] [place] [address] Phone [phone] Care Team Providers Care Mental Health Aides Teacher Name Role Phone Francisco Cisse MD Primary Care Provider + Reason for Visit * Reason Onset Date Comments Advice 12/17/2023 Encounter Details Date Type Department Care Team (Late st Contact Info) Description 12/17/2023 Telephone General Internal Medicine [facility] 200 [facility] [place] [address] Francisco Cisse MD 200 [place] [address] Advice Allergies No known active allergiesdocumented as of this encounter (statuses as of 12/18/2023) Medications Medication Sig Dispensed Refills Start Date [...] as of this encounter (statuses as of 12/18/2023) Active Problems Problem Noted Date Diagnosed Date [...] as of this encounter (statuses as of 12/18/2023) Resolved Problems Problem Noted Date Diagnosed Date [...] as of this encounter (statuses as of 12/18/2023) Immunizations Name Administration Dates Next Due COVID-19 mRNA, LNP-s, No Pre serve, 2-Dose Series ([email or web address]) 03/08/2021,02/15/2021 HepA Inact/HepB Recomb>=18yrs old 12/04/2019,04/2019,05/20/2019 11/19/2019 PPD 06/18/2017, 3,01/09/2012,03/06/2011 Pneumococcal Conjugate Vacc, 13 Valent (Prevnar) 05/01/2017 Pneumococcal Polysaccharide PPV23 (Pneumovax) 08/28/2022,10/25/2015,07/14/2012 Season Influenza, Quad, PF, Adjuvanted, 65+ Yrs, IM (FLUAD) 10/07/2020(Deferred: Patient Refused - pt says he already had his shot last month at [facility] Handy Lyons and Mckinley Cobian made [...] Telephone Encounter - Corina Prado LPN - 12/18/2023 7:58 AM EST Order faxed. Confirmation received. * Telephone Encounter - Gege Herbert MD - 12/17/2023 3:55 PM EST Done * Telephone Encounter - Yasmeen Long OSA - 12/17/2023 2:05 PM EST Calling to see if provider would like a CBC order for the pt this week,if he does could the orders be faxed to their office at [phone] documented in this encounter Plan of Treatment Upcoming Encounters Date Type Department Care Team (Late st Contact Info) Description 12/26/2023 9:40 AM EST Office Visit Family Practice [facility] [address] [place] [address] Robinson Olson CRNP [address] [place] [address] 12/27/2023 2:30 PM EST Imaging Radiology [facility] [address] 01/07/2024 11:00 AM EST Procedure Only Urology, [facility] 132 [place] [address] Frank Peraza MD [address] [place] [address] 01/20/2024 4:00 PM EST Office Visit Hematology/Oncology [facility] [address] [place] [address] Jennifer Ramires MD 200 [facility] [place] [address] 02/04/2024 11:20 AM EST Office Visit Family Practice [facility] 132 [facility] [place] [address] Robinson Olson CRNP 132 [place] [address] 03/13/2024 2:00 PM EDT Office Visit Dermatology [facility] [address] [place] [address] Francisco Watson MD 200 [facility] [place] [address] 08/20/2024 10:15 AM EDT Office Visit Ophthalmology, [facility] 132 [facility] [place] [address] Cody Gonzalez DO [address] [place] [address] Scheduled Orders Name Type Priority Associated Diagnoses Orde r Schedule CBC Lab Routine S/P TIPS (transjugular intrahepatic portosystemic shunt) Pancytopenia (HCC) Expected: 12/17/2023 (Approximate), Expires: 12/16/2024 Scheduled Procedures Name Priority Associated Diagnoses Date/Ti [...] Additional history exists CKD PHOS USE SMARTSET 91169 01/28/202401/03, 07/26/2022, 12/05/2021, Additional history exists Diabetic Foot Exam 03/06/2024 03/06/2023, 0 01/03/2022, 03/02/2021, Additional history exists GFR 05/17/2024 11/16/2023, 08/03, 07/24/2023, Additional history exists HbA1c 05/28/2024 11/27/2023, 05/03, 01/28/2023, Additional history exists Albumin/Creatinine Ratio 07/12/2024 023, 10/01/2022, 09/11/2021, Additional history exists COLONOSCOPY-ANNUAL AGES 18-100 08/09/2024 08/09/2023, 11/07/2022, 11/07/2022, Additional history exists CKD HGB USE SMARTSET 52762 12/06/202412/06, 12/06/2023, 11/16/2023, Additional history exists Lipid [...] this encounter Medical Devices Implanted Type Area Pedodontist Device Identifier Shelf Expiration Date Model / Serial / Lot Clareon Iol Aspheric Hydrophobic Acrylic Iol Implanted:Qty: 1 on 04/23/2023 by Cody Gonzalez DO at OR [facility] Lens Left: Eye 11/12/2025 CNA0T0 / [id number] / Viatorr Tips Endoprosthesis 8-10 Mm X 8cm / 2cm Implanted:Qty: 1 on 10/07/2020 by Go Alvarado MD at [facility] Right: Abdomen 03/03/2023 [id number] / / [id number] Description:Viatorr TIPS End oprosthesis 8-10 mm x 8cm / 2cm, Manufactored by [employer] Syr Pf 2ml Embospheres 100-300 - [id number] Implanted:Qty: 1 on 04/18/2021 by Kevin Lim DO at OR [facility] Left: Abdomen [employer] [id number] 11/25/2023 S220GH / / [id number] -[id number] Syr Pf 2ml Embospheres 100-300 - [id number] Implanted:Qty: 1 on 03/28/2022 at [facility] [employer] [id number] 08/31/2024 S220GH / / [id number] -5 Clareon Iol Aspheric Hydrophobic Acrylic Iol Implanted:Qty: 1 on 04/02/2023 by Cody Gonzalez DO at OR [facility] Right: Eye JAZMIN 11/12/2025 CNA0T0 / [id number] / documented as of this encounter Visit Diagnoses Diagnosis 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 No Full Code 07/22/2014 9:56 PM 07/24/2014 8:18 PM This order reflects the patients wishes and were consensually agreed upon. Question Answer Comments Discussion of Advance Directives occurred with: Patient Does the patient have a Living Will? No Does the patient have Health Care Power of Machine Skiver? No Care Teams Mental Health Aides Teacher Relationship Specialty Start Date End Date Francisco Cisse MD 200 [place] [address] PCP - General Internal Medicine 09/04/21 documented as of this encounter
--- OUTSIDE RECORDS SUMMARY | 2024-01-25 17:14 | External Medical Summary | Summary of Care ---
Author Name Unknown Organization [facility] Address [address] [place] [address] Phone [phone] Care Team Providers Care Emergency Room Registered Nurse Name Role Phone Francisco Cisse MD Primary Care Provider + Reason for Visit * Reason Onset Date Comments case management 12/17/2023 Encounter Details Date Type Department Care Team (Late st Contact Info) Description 12/17/2023 Teacher Emotionally Impaired Telephone Care Coordination and Integration [address] [place], [place] [phone] Ximena Pretty RN [address] [place], [place] [phone] case management Allergies No known active allergiesdocumented [...] hemoglobin A1c goal of less than 7.0% ([facility]) Use to test blood [...] mRNA, LNP-s, No Pre serve, 2-Dose Series ([email or web address]) 03/08/2021,02/15/2021 HepA Inact/HepB Recomb>=18yrs old 12/04/2019,04/2019,05/20/2019 11/19/2019 [...] Miscellaneous Notes * Telephone Encounter - Kriss Bear OSA - 12/18/2023 8:38 AM EST Called and spoke to patient and he is scheduled to see on 12/24/23. * Telephone Encounter - Ximena Pretty RN [...] arranged by hematology. * Telephone Encounter - iXmena Pretty RN - 12/17/2023 12:56 PM EST Patient was discharged from [facility] on Saturday. His hgb on discharge was 7.2 He states that he is still having bloody urine. He states that he received blood transfusions in the past, he is not sure who ordered these. He does not want to have to go inpatient for a blood transfusion. He would like to have it outpatient at [facility]. He states that Dr Jc was checking his HGB once a month. Dr Cisse/dr Jc: please advise. documented in this encounter Plan of Treatment Upcoming Encounters Date Type Department Care Team (Late st Contact Info) Description 12/24/2023 2:30 PM EST Office Visit Hematology/Oncology [facility] [address] [place] [address] Jennifer Jc MD 200 [facility] [place] [address] 12/26/2023 9:40 AM EST Office Visit Family Practice [facility] 132 [facility] [place] [address] Robinson Olson CRNP 132 [facility] [place] [address] 12/27/2023 2:30 PM EST Imaging Radiology [facility] 1st [facility] 132 [facility] [place] [address] 01/07/2024 11:00 AM EST Procedure Only Urology, [facility] 132 [facility] [place] [address] Frank Peraza MD 27 [facility] [address] [place] [address] 01/20/2024 4:00 PM EST Office Visit Hematology/Oncology [facility] [address] [place] [address] Jennifer Jc MD [address] [place] [address] 02/04/2024 11:20 AM EST Office Visit Family Practice [facility] 132 [facility] [place] [address] Robinson Olson CRNP 132 [facility] [place] [address] 03/13/2024 2:00 PM EDT Office Visit Dermatology [facility] 200 [facility] [place] [address] Francisco Watson MD 200 [facility] [place] [address] 08/20/2024 10:15 AM EDT Office Visit Ophthalmology, [facility] 132 [facility] [place] [address] Cody Gonzalez, DO 21 [facility] [place] [address] Scheduled Procedures Name Priority Associated Diagnoses Date/Ti [...] Additional history exists CKD PHOS USE SMARTSET 66851 01/28/202401/03, 07/26/2022, 12/05/2021, Additional history exists Diabetic Foot Exam 03/06/2024 03/06/2023, 0 01/03/2022, 03/02/2021, Additional history exists GFR 05/17/2024 11/16/2023, 08/03, 07/24/2023, Additional history exists HbA1c 05/28/2024 11/27/2023, 05/03, 01/28/2023, Additional history exists Albumin/Creatinine Ratio 07/12/2024 023, 10/01/2022, 09/11/2021, Additional history exists COLONOSCOPY-ANNUAL AGES 18-100 08/09/2024 08/09/2023, 11/07/2022, 11/07/2022, Additional history exists CKD HGB USE SMARTSET 35031 12/06/202412/06, 12/06/2023, 11/16/2023, Additional history exists Lipid [...] this encounter Medical Devices Implanted Type Area Real Estate Sales Manager Device Identifier Shelf Expiration Date Model / Serial / Lot Clareon Iol Aspheric Hydrophobic Acrylic Iol Implanted:Qty: 1 on 04/23/2023 by Cody Gonzalez DO at OR [facility] Lens Left: Eye 11/12/2025 CNA0T0 / [id number] / Viatorr Tips Endoprosthesis 8-10 Mm X 8cm / 2cm Implanted:Qty: 1 on 10/07/2020 by Go Alvarado MD at [facility] [address] Right: Abdomen 03/03/2023 [id number] / / [id number] Description:Viatorr TIPS End oprosthesis 8-10 mm x 8cm / 2cm, Manufactored by [employer] [employer] Syr Pf 2ml Embospheres 100-300 - [id number] Implanted:Qty: 1 on 04/18/2021 by Kevin Lim DO at OR [facility] Left: Abdomen [employer] [id number] 11/25/2023 S220GH / / [id number] -5 Syr Pf 2ml Embospheres 100-300 - [id number] Implanted:Qty: 1 on 03/28/2022 at [facility] [address] [address] [employer] [id number] 08/31/2024 S220GH / / [id number] -5 Clareon Iol Aspheric Hydrophobic Acrylic Iol Implanted:Qty: 1 on 04/02/2023 by Cody Gonzalez DO at OR [facility] Right: Eye JAZMIN 11/12/2025 CNA0T0 / [id number] / documented as of this encounter Advance Directives Documents on File Type Date Recorded Patient Interior Horticulturist Expl anation Advance Directives and Living Will 12/11/2022 ADVANCE DIRECTIVE / LIVING WILL LIVING WILL Power of Cable Supervisor 12/11/2022 POWER OF A TTORNEY Latest [...] patient have Health Care Power of Cable Supervisor? No Full Code 07/22/2014 9:56 PM 07/24/2014 8:18 PM This order reflects the patients wishes and were consensually agreed upon. Question Answer Comments Discussion of Advance Directives occurred with: Patient Does the patient have a Living Will? No Does the patient have Health Care Power of Cable Supervisor? No Care Teams Emergency Room Registered Nurse Relationship Specialty Start Date End Date Francisco Cisse MD [address] [place] [address] PCP - General Internal Medicine 09/04/21 documented as of this encounter
--- OUTSIDE RECORDS SUMMARY | 2024-01-25 17:14 | External Medical Summary | Summary of Care ---
Author Name Unknown Organization [facility] Address [address] [place] [address] Phone [phone] Care Team Providers Care Agronomy Location Manager Name Role Phone Francisco Cisse MD Primary Care Provider + Reason for Visit * Reason Onset Date Comments case management 12/17/2023 Encounter Details Date Type Department Care Team (Late st Contact Info) Description 12/17/2023 Rubber Compounder Formulator Telephone Care Coordination and Integration [address] [place], [place] [phone] Ximena Pretty RN [address] [place], [place] [phone] case management Allergies No known active allergiesdocumented [...] mRNA, LNP-s, No Pre serve, 2-Dose Series ([employer]) 03/08/2021,02/15/2021 HepA Inact/HepB Recomb>=18yrs old 12/04/2019,04/2019,05/20/2019 11/19/2019 PPD 06/18/2017, 3,01/09/2012,0306/2011 Pneumococcal Conjugate Vacc, 13 Valent (Prevnar) 05/01/2017 Pneumococcal Polysaccharide PPV23 (Pneumovax) 08/28/2022,10/25/2015,07/14/2012 Season Influenza, Quad, PF, Adjuvanted, 65+ Yrs, IM (FLUAD) 10/07/2020(Deferred: Patient Refused - pt says he already had his shot last month at [facility] Handy Lyons and Mckinley Cobian [...] Telephone Encounter - Josephine Murphy RN - 12/18/2023 11:47 AM EST Called patient. He states that he is feeling well, did not go to ER. He states that if he becomes symptomatic he will go at that time. Placed lab orders for CBCd, ferritin, iron screen- he states that he is going to another appt on Saturday so will try to go to the lab then; otherwise will arrive early for his appt Saturday to do lab work. Advised him to call with any questions/ concerns, he verbalized understanding. * Telephone Encounter - Kriss Bear OSA [...] would like to have it outpatient at [facility]. He states that Dr Jc was checking his HGB once a month. Dr Cisse/dr Jc: please advise. documented in this encounter Plan of Treatment Upcoming Encounters Date Type Department Care Team (Late st Contact Info) Description 12/24/2023 2:30 PM EST Office Visit Hematology/Oncology [facility] 200 [facility] [place] [address] Jennifer Jc MD 200 [facility] [place] [address] 12/26/2023 9:40 AM EST Office Visit Family Practice [facility] 132 [facility] [place] [address] Robinson Olson CRNP 132 [facility] [place] [address] 12/27/2023 2:30 PM EST Imaging Radiology [address], [place] 132 [facility] [place] [address] 01/07/2024 11:00 AM EST Procedure Only Urology, [facility] 132 [place] [address] Frank Peraza MD [address] [place] [address] [place] [address] 01/20/2024 4:00 PM EST Office Visit Hematology/Oncology [facility] [address] [place] [address] Jennifer Jc MD [address] [place] [address] 02/04/2024 11:20 AM EST Office Visit Family Practice [facility] 132 [place] [address] Robinson Olson CRNP 132 [place] [address] 03/13/2024 2:00 PM EDT Office Visit Dermatology [facility] [address] [place] [address] Francisco Watson MD [address] [place] [address] 08/20/2024 10:15 AM EDT Office Visit Ophthalmology, [facility] 132 [facility] [place] [address] Cody Gonzalez DO [address] [place] [address] Scheduled Procedures Name Priority Associated Diagnoses Date/Ti [...] Additional history exists CKD PHOS USE SMARTSET 25193 01/28/202401/03, 07/26/2022, 12/05/2021, Additional history exists Diabetic Foot Exam 03/06/2024 03/06/2023, 0 01/03/2022, 03/02/2021, Additional history exists GFR 05/17/2024 11/16/2023, 08/03, 07/24/2023, Additional history exists HbA1c 05/28/2024 11/27/2023, 05/03, 01/28/2023, Additional history exists Albumin/Creatinine Ratio 07/12/2024 023, 10/01/2022, 09/11/2021, Additional history exists COLONOSCOPY-ANNUAL AGES 18-100 08/09/2024 08/09/2023, 11/07/2022, 11/07/2022, Additional history exists CKD HGB USE SMARTSET 76751 12/06/202412/06, 12/06/2023, 11/16/2023, Additional history exists Lipid [...] this encounter Medical Devices Implanted Type Area Commercial Loan Processor Device Identifier Shelf Expiration Date Model / Serial / Lot Clareon Iol Aspheric Hydrophobic Acrylic Iol Implanted:Qty: 1 on 04/23/2023 by Cody Gonzalez DO at OR [facility] Lens Left: Eye 11/12/2025 CNA0T0 / [id number] / Viatorr Tips Endoprosthesis 8-10 Mm X 8cm / 2cm Implanted:Qty: 1 on 10/07/2020 by Go Alvarado MD at [facility] Right: Abdomen 03/03/2023 [id number] / / [id number] Description:Viatorr TIPS End oprosthesis 8-10 mm x 8cm / 2cm, Manufactored by [employer] Syr Pf 2ml Embospheres 100-300 - [id number] Implanted:Qty: 1 on 04/18/2021 by Kevin Lim DO at OR [facility] Left: Abdomen [employer] [id number] 11/25/2023 S220GH / / [id number] -[id number] Syr Pf 2ml Embospheres 100-300 - [id number] Implanted:Qty: 1 on 03/28/2022 at [facility] [employer] [id number] 08/31/2024 S220GH / / [id number] -5 Clareon Iol Aspheric Hydrophobic Acrylic Iol Implanted:Qty: 1 on 04/02/2023 by Cody Gonzalez DO at OR [facility] Right: Eye JAZMIN 11/12/2025 CNA0T0 / [id number] / documented as of this encounter Advance Directives Documents on File Type Date Recorded Patient Blacktop Spreader Expl anation Advance Directives and Living Will 12/11/2022 ADVANCE DIRECTIVE / LIVING WILL LIVING WILL Power of Bonbon Dipper 12/11/2022 POWER OF A TTORNEY Latest Code [...] the patient have Health Care Power of Bonbon Dipper? No Full Code 07/22/2014 9:56 PM 07/24/2014 8:18 PM This order reflects the patients wishes and were consensually agreed upon. Question Answer Comments Discussion of Advance Directives occurred with: Patient Does the patient have a Living Will? No Does the patient have Health Care Power of Bonbon Dipper? No Care Teams Agronomy Location Manager Relationship Specialty Start Date End Date Francisco Cisse MD 200 [place] [address] PCP - General Internal Medicine 09/04/21 documented as of this encounter
--- OUTSIDE RECORDS SUMMARY | 2024-01-25 17:14 | External Medical Summary | Summary of Care ---
Author Name Unknown Organization [facility] Address [address] [place] [address] Phone [phone] Care Team Providers Care Rental Sales Agent Name Role Phone Francisco Cisse MD Primary Care Provider + Reason for Visit * Reason Onset Date Comments case management 12/17/2023 Encounter Details Date Type Department Care Team (Late st Contact Info) Description 12/17/2023 Bodybuilder Telephone Care Coordination and Integration [address] [place], [place] [phone] Ximena Pretty RN [address] [place], [place] [phone] case management Allergies No known active allergiesdocumented [...] mRNA, LNP-s, No Pre serve, 2-Dose Series ([employer]) 03/08/2021,02/15/2021 HepA Inact/HepB Recomb>=18yrs old 12/04/2019,04/2019,05/20/2019 11/19/2019 PPD 06/18/2017, 3,01/09/2012,0306/2011 Pneumococcal Conjugate Vacc, 13 Valent (Prevnar) 05/01/2017 Pneumococcal Polysaccharide PPV23 (Pneumovax) 08/28/2022,10/25/2015,07/14/2012 Season Influenza, Quad, PF, Adjuvanted, 65+ Yrs, IM (FLUAD) 10/07/2020(Deferred: Patient Refused - pt says he already had his shot last month at [facility] Handy Lyons and Mckinley Cobian [...] 12:56 PM EST Patient was discharged from [facility] on Saturday. His hgb on discharge was 7.2 He states that he is still having bloody urine. He states that he received blood transfusions in the past, he is not sure who ordered these. He does not want to have to go inpatient for a blood transfusion. He would like to have it outpatient at [facility]. He states that Dr Jc was checking his HGB once a month. Dr Cisse/dr Jc: please advise. documented in this encounter Plan of Treatment Upcoming Encounters Date Type Department Care Team (Late st Contact Info) Description 12/24/2023 2:30 PM EST Office Visit Hematology/Oncology [facility] [address] [place] [address] Jennifer Jc MD 200 [facility] [place] [address] 12/26/2023 9:40 AM EST Office Visit Family Practice [facility] 132 [facility] [place] [address] Robinson Olson CRNP 132 [facility] [place] [address] 12/27/2023 2:30 PM EST Imaging Radiology [facility] 1[facility] 132 [facility] [place] [address] 01/07/2024 11:00 AM EST Procedure Only Urology, [facility] 132 [facility] [place] [address] Frank Peraza MD 27 [facility] [address] [place] [address] 01/20/2024 4:00 PM EST Office Visit Hematology/Oncology [facility] [address] [place] [address] Jennifer Jc MD [address] [place] [address] 02/04/2024 11:20 AM EST Office Visit Family Practice [facility] 132 [facility] [place] [address] Robinson Olson CRNP 132 [facility] [place] [address] 03/13/2024 2:00 PM EDT Office Visit Dermatology [facility] 200 [facility] [place] [address] Francisco Watson MD 200 [facility] [place] [address] 08/20/2024 10:15 AM EDT Office Visit Ophthalmology, [facility] 132 [facility] [place] [address] Cody Gonzalez, DO 21 [facility] [place] [address] Scheduled Procedures Name Priority Associated Diagnoses Date/Ti [...] Additional history exists CKD PHOS USE SMARTSET 23575 01/28/202401/03, 07/26/2022, 12/05/2021, Additional history exists Diabetic Foot Exam 03/06/2024 03/06/2023, 0 01/03/2022, 03/02/2021, Additional history exists GFR 05/17/2024 11/16/2023, 08/03, 07/24/2023, Additional history exists HbA1c 05/28/2024 11/27/2023, 05/03, 01/28/2023, Additional history exists Albumin/Creatinine Ratio 07/12/2024 023, 10/01/2022, 09/11/2021, Additional history exists COLONOSCOPY-ANNUAL AGES 18-100 08/09/2024 08/09/2023, 11/07/2022, 11/07/2022, Additional history exists CKD HGB USE SMARTSET 17123 12/06/202412/06, 12/06/2023, 11/16/2023, Additional history exists Lipid [...] this encounter Medical Devices Implanted Type Area Rail Track Maintainer Device Identifier Shelf Expiration Date Model / Serial / Lot Clareon Iol Aspheric Hydrophobic Acrylic Iol Implanted:Qty: 1 on 04/23/2023 by Cody Gonzalez DO at OR [facility] Lens Left: Eye 11/12/2025 CNA0T0 / [id number] / Viatorr Tips Endoprosthesis 8-10 Mm X 8cm / 2cm Implanted:Qty: 1 on 10/07/2020 by Go Alvarado MD at [facility] Right: Abdomen 03/03/2023 [id number] / / [id number] Description:Viatorr TIPS End oprosthesis 8-10 mm x 8cm / 2cm, Manufactored by [employer] Syr Pf 2ml Embospheres 100-300 - [id number] Implanted:Qty: 1 on 04/18/2021 by Kevin Lim DO at OR [facility] Left: Abdomen [employer] [id number] 11/25/2023 S220GH / / [id number] Syr Pf 2ml Embospheres 100-300 - [id number] Implanted:Qty: 1 on 03/28/2022 at [facility] [employer] [id number] 08/31/2024 S220GH / / [id number] Clareon Iol Aspheric Hydrophobic Acrylic Iol Implanted:Qty: 1 on 04/02/2023 by Cody Gonzalez DO at OR [facility] Right: Eye JAZMIN 11/12/2025 CNA0T0 / [id number] / documented as of this encounter Advance Directives Documents on File Type Date Recorded Patient Tire Technician Expl anation Advance Directives and Living Will 12/11/2022 ADVANCE DIRECTIVE / LIVING WILL LIVING WILL Power of Practice Nurse 12/11/2022 POWER OF A TTORNEY Latest Code [...] the patient have Health Care Power of Practice Nurse? No Full Code 07/22/2014 9:56 PM 07/24/2014 8:18 PM This order reflects the patients wishes and were consensually agreed upon. Question Answer Comments Discussion of Advance Directives occurred with: Patient Does the patient have a Living Will? No Does the patient have Health Care Power of Practice Nurse? No Care Teams Rental Sales Agent Relationship Specialty Start Date End Date Francisco Cisse MD [address] [place] [address] PCP - General Internal Medicine 09/04/21 documented as of this encounter
--- OUTSIDE RECORDS SUMMARY | 2024-01-25 17:14 | External Medical Summary | Summary of Care ---
Author Name Unknown Organization [facility] Address [address] [facility] [place] [address] Phone [phone] Care Team Providers Care Metal Room Dental Technician Name Role Phone Francisco Cisse MD Primary Care Provider + Reason for Visit * Reason Comments Cystoscopy * Evaluate & Treat - Unlimited Visits (Within 3 days (urgent)) - Authorized Specialty Diagnoses / Procedures Referred By Chacho fleming Referred To Contact Urology Diagnoses Recurrent gross hematuria History of prostate cancer History of radiation therapy Suprapubic pain, acute Shelbie Ayers MD [address] [place] [address] Referral ID Status Reason Start Date Expiration Date Visits Requested Visits Authorized [id number] Authorized Specialty Services Required 3 [phone] Encounter Details Date Type Department Care Team (Late st Contact Info) Description 12/19/2023 1:30 PM EST Office Visit Urology Lynnette Fitzpatrick [address] [place] [address] [place] [address] Frank Peraza MD [address] [place] [address] [place] [address] Abnormal cystoscopy*; Left renal mass; Prostate cancer [...] had his shot last month at [facility] Lyons and Mckinley Cobian made aware) [...] Peraza MD - 12/19/2023 1:30 PM EST [id number] PCP: [place] [address] [phone] Luis Hale is a 73 year old male, who presents for cystoscopy for evaluation of hematuria. It hasbeen 9 months since the patient's last evaluation. Patient's past notes reviewed. CT scan done December 2023 demonstrates asymmetric bladder thickening, hepatic lesions. Inpatient urology consultations and notes from [facility] are also reviewed. No recent PSA value [...] 8 hours as needed for Pain (fever). InaayaTouch Verio In Vitro Strip (Glucose Blood) Use [...] performed by Cody Gonzalez DO at OR [facility] CATARACT SURGERY,COMPLEX Left 04/23/2023 LEFT EXTRACAPSULAR CATARACT REMOVAL COMPLEX WITH IOL performed by Cody Gonzalez DO at OR [facility] COLONOSCOPY 08/27/2005 lock haven/hemorrhoids non internal COLONOSCOPY, DIAGNOSTIC (RECTUM) 04/16/2013 COLONOSCOPY FLEXIBLE PROXIMAL DIAGNOSTIC performed by Salvador Lopez MD at ENDOSCOPY [facility], adenomatous polyps repeat colonoscopy in 3 years COLONOSCOPY, DIAGNOSTIC (RECTUM) 05/03/2016 adenomatous polyps, diverticulosis, repeat 5 yrs/COLONOSCOPY FLEXIBLE PROXIMAL DIAGNOSTIC performedby Salvador Lopez MD at ENDOSCOPY [facility] COLONOSCOPY, DIAGNOSTIC (RECTUM) 07/19/2020 adenomatous & hyperplastic polyps, diverticulosis, repeat 3 yrs / [facility] COLONOSCOPY, DIAGNOSTIC (RECTUM) 11/30/2021 mild XRT proctitis, diverticulosis / COLONOSCOPY FLEXIBLE PROXIMAL DIAGNOSTIC performed by Barbara March DO at ENDOSCOPY [facility] COLONOSCOPY, DIAGNOSTIC (RECTUM) 02/01/2022 Mild XRT proctitis / COLONOSCOPY FLEXIBLE PROXIMAL DIAGNOSTIC performed by Barbara March DO at ENDOSCOPY [facility] COLONOSCOPY, DIAGNOSTIC (RECTUM) N/A 11/07/2022 poor prep/diverticulosis sigmoid colon/rectal angioectasias consistent with radiation proctopathy/Colonoscopy/[place] COLONOSCOPY, DIAGNOSTIC (RECTUM) N/A 08/09/2023 poor prep/moderate diverticulosis/hemorrhoids/biopsies show adenomatous and hyperplastic polyps/recall 1 years/Colonoscopy/[place] CT ABDOMEN W IV AND W ORAL CONTRAST 01/10/2010 EGD, FLEXIBLE, DIAGNOSTIC 07/22/2014 GE varices oozing blood, gastric polyp/ESOPHAGOGASTRODUODENOSCOPY (EGD), FLEXIBLE, TRANSORAL, DIAGNOSTIC performed by Juaquin Arrington MD at ENDOSCOPY [facility] EGD, FLEXIBLE, DIAGNOSTIC 07/23/2014 ESOPHAGOGASTRODUODENOSCOPY (EGD), FLEXIBLE, TRANSORAL, DIAGNOSTIC performed by Sophie Merino MD at [facility]OSCOPY [facility] EGD, FLEXIBLE, DIAGNOSTIC 06/02/2019 eso & gastric varices, gastric polyps/ESOPHAGOGASTRODUODENOSCOPY (EGD), FLEXIBLE, TRANSORAL, DIAGNOSTIC performed by Salvador Lopez MD at ENDOSCOPY [facility] EGD, FLEXIBLE, DIAGNOSTIC 03/25/2020 portal hypertensive gastropathy, esophageal varices / INPT [facility] EGD, FLEXIBLE, DIAGNOSTIC 07/19/2020 eso varices, portal hypertensive gastropathy, repeat 3 mo / [facility] EGD, FLEXIBLE, DIAGNOSTIC 10/25/2020 Portal hypertensive gastropathy, eso varices / [facility] EGD, FLEXIBLE, DIAGNOSTIC 08/202222 Grade I esophageal varices / [facility] EGD, FLEXIBLE, DIAGNOSTIC N/A 09/11/2022 grade II esophageal varices/gastric antral vascular ectasia, treated with APC/repeat 3 months/EGD/[place] EGD, FLEXIBLE, DIAGNOSTIC N/A 11/07/2022 grade III esophageal varices, banded/gastric antral vascular ectasia/repeat 2 months/EGD/[place] EGD, FLEXIBLE, DIAGNOSTIC N/A 02/01/2023 [facility]< egd. / single G2 varix, banded and varices eradicated / no specimens collected / egd in 1 to 2 months / EGD, FLEXIBLE, DIAGNOSTIC N/A 08/09/2023 portal hypertensive gastropathy/repeat 1 year/EGD/[place] EGD, FLEXIBLE, DIAGNOSTIC 05/22/2023 GAVE, repeat 4-6 wks / [facility] IR CANCER THERASPHERE EMBOLIZATION 03/28/2022 IR EMBOLIZATION Left 04/18/2021 IMAGING SUPERVISION & INTERPRETATION TRANSCATHETER THERAPY, EMBOLIZATION performed by Kevin Lim DO at OR [facility] IR EMBOLIZATION ARTERIAL NON HEMMORHAGE Left 02/21/2022 EMBOLIZATION ARTERIAL; SUPERVISION & INTERPRETATION performed by Kevin Lim DO at OR [facility] IR EMBOLIZATION ARTERIAL NON HEMMORHAGE Left 06/05/2022 EMBOLIZATION ARTERIAL; SUPERVISION & INTERPRETATION performed by Kevin Lim DO at OR [facility] IR VENOUS TIPS 10/07/2020 REMOVAL OF TONSILS, UNDER AGE 12 age 6-7 Tonsils Removal,<12 Y/O SIGMOIDOSCOPY, DIAGNOSTIC 04/12/2022 radiation proctitis, diverticulosis / [facility] TIPS, REVISION N/A 01/24/2021 REVISION TRANSVENOUS INTRAHEPATIC PORTOSYSTEMIC SHUNT performed by Kevin Lim DO at OR [facility] TIPS, REVISION Right 10/19/2022 REVISION TRANSVENOUS INTRAHEPATIC PORTOSYSTEMIC SHUNT performed by Howie Valdovinos MD at OR [facility] TIPS, REVISION Right 02/20/2023 REVISION TRANSVENOUS INTRAHEPATIC PORTOSYSTEMIC SHUNT performed by Kevin Lim DO at OR [facility] Past Medical History: Diagnosis Date Acquired thrombocytopenia (HCC) 09/05/2017 Allergic rhinitis Anemia Anxiety and depression Aortic valve sclerosis 02/01/2023 Benign neoplasm of colon 04/16/2013 COLONOSCOPY FLEXIBLE PROXIMAL DIAGNOSTIC performed by Salvador Lopez MD at ENDOSCOPY [facility], adenomatous polyps repeat colonoscopy in [...] for the procedure. A well lubricated 16 Syriac flexible cystoscope was introduced through the meatus [...] the procedure well without complications or difficulties. Machine Candle Molder was present for entire procedure. Perioperative Bactrim [...] with next labs Obtain outside imaging from [facility] into PACS Cysto, bladder biopsy, fulguration, possible [...] 12/24/2023 2:30 PM EST Office Visit Hematology/Oncology [facility] [address] [place] [address] Jennifer Ramires MD 200 [facility] [place] [address] 12/26/2023 9:40 AM EST Office Visit Family [facility] 132 [facility] [place] [address] Robinson Olson CRNP 132 [facility] [place] [address] 12/27/2023 2:30 PM EST Imaging Radiology [facility]st [facility] 132 [facility] [place] [address] 02/04/2024 11:20 AM EST Office Visit Family [facility] [address] [facility] [place] [address] Robinson Olson CRNP 132 [facility] [place] [address] 03/13/2024 2:00 PM EDT Office Visit Dermatology [facility] [address] [place] [address] Francisco Watson MD [address] [place] [address] 08/20/2024 10:15 AM EDT Office Visit Ophthalmology, [facility] 132 [facility] [place] [address] Cody Gonzalez, DO 21 [facility] [place] [address] Scheduled Orders Name Type Priority Associated Diagnoses [...] Additional history exists CKD PHOS USE SMARTSET 73235 01/28/202401/03, 07/26/2022, 12/05/2021, Additional history exists Diabetic Foot Exam 03/06/2024 03/06/2023, 0 01/03/2022, 03/02/2021, Additional history exists GFR 05/17/2024 11/16/2023, 08/03, 07/24/2023, Additional history exists HbA1c 05/28/2024 11/27/2023, 05/03, 01/28/2023, Additional history exists Albumin/Creatinine Ratio 07/12/2024 023, 10/01/2022, 09/11/2021, Additional history exists COLONOSCOPY-ANNUAL AGES 18-100 08/09/2024 08/09/2023, 11/07/2022, 11/07/2022, Additional history exists CKD HGB USE SMARTSET 49426 12/06/202412/06, 12/06/2023, 11/16/2023, Additional history exists Lipid [...] this encounter Medical Devices Implanted Type Area Oil Well Perforator Operator Device Identifier Shelf Expiration Date Model / Serial / Lot Clareon Iol Aspheric Hydrophobic Acrylic Iol Implanted:Qty: 1 on 04/23/2023 by Cody Gonzalez DO at OR [facility] Lens Left: Eye 11/12/2025 CNA0T0 / [id number] / Viatorr Tips Endoprosthesis 8-10 Mm X 8cm / 2cm Implanted:Qty: 1 on 10/07/2020 by Go Alvarado MD at [facility] Right: Abdomen 03/03/2023 [id number] / / [id number] Description:Viatorr TIPS End oprosthesis 8-10 mm x 8cm / 2cm, Manufactored by [employer] Syr Pf 2ml Embospheres 100-300 - [id number] Implanted:Qty: 1 on 04/18/2021 by Kevin Lim DO at OR [facility] Left: Abdomen [employer] [id number] 11/25/2023 S220GH / / [id number] Syr Pf 2ml Embospheres 100-300 - [id number] Implanted:Qty: 1 on 03/28/2022 at [facility] [employer] [id number] 08/31/2024 S220GH / / [id number] -[id number] Clareon Iol Aspheric Hydrophobic Acrylic Iol Implanted:Qty: 1 on 04/02/2023 by Cody Gonzalez DO at OR [facility] Right: Eye JAZMIN 11/12/2025 CNA0T0 / [id number] / documented as of this encounter Visit Diagnoses Diagnosis Abnormal cystoscopy- Primary Other nonspecific abnormal finding Left renal mass Unspecified disorder of kidney and ureter Prostate cancer (HCC) Malignant neoplasm of prostate Hematuria, gross Gross hematuria Pre-op testing Preoperative examination, unspecified documented in this encounter Advance Directives Documents on File Type Date Recorded 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 No Full Code 07/22/2014 9:56 PM 07/24/2014 8:18 PM This order reflects the patients wishes and were consensually agreed upon. Question Answer Comments Discussion of Advance Directives occurred with: Patient Does the patient have a Living Will? No Does the patient have Health Care Power of Bone Char Kiln Operator? No Care Teams Metal Room Dental Technician Relationship Specialty Start Date End Date Francisco Cisse MD 200 [place] [address] PCP - General Internal Medicine 09/04/21 documented as of this encounter
--- OUTSIDE RECORDS SUMMARY | 2024-01-25 17:15 | External Medical Summary | Summary of Care ---
Author Name Unknown Organization [facility] Address [address] [place] [address] Phone [phone] Care Team Providers Care Concrete Conveyor Operator Name Role Phone Francisco Cisse MD Primary Care Provider + Reason for Visit * Reason Onset Date Comments case management 12/17/2023 Encounter Details Date Type Department Care Team (Late st Contact Info) Description 12/17/2023 Radio Interference Supervisor Telephone Care Coordination and Integration [address] [place], [place] [phone] Ximena Pretty RN [address] [place], [place] [phone] case management Allergies No known active allergiesdocumented [...] mRNA, LNP-s, No Pre serve, 2-Dose Series (VIEO) 03/08/2021,02/15/2021 HepA Inact/HepB Recomb>=18yrs old 12/04/2019,04/2019,05/20/2019 11/19/2019 PPD 06/18/2017, 3,01/09/2012,03/06/2011 Pneumococcal Conjugate Vacc, 13 Valent (Prevnar) 05/01/2017 Pneumococcal Polysaccharide PPV23 (Pneumovax) 08/28/2022,10/25/2015,07/14/2012 Season Influenza, Quad, PF, Adjuvanted, 65+ Yrs, IM (FLUAD) 10/07/2020(Deferred: Patient Refused - pt says he already had his shot last month at [facility] Handy Lyons and Mckinley Cobian made [...] encounter Miscellaneous Notes * Telephone Encounter - Gege Herbert MD - 12/17/2023 1:[address] Johnson is out Today . It's better to have this arranged by hematology. * Telephone Encounter - Ximena Pretty RN - 12/17/2023 12:56 PM EST Patient was discharged from [facility] on Saturday. His hgb on discharge was 7.2 He states that he is still having bloody urine. He states that he received blood transfusions in the past, he is not sure who ordered these. He does not want to have to go inpatient for a blood transfusion. He would like to have it outpatient at [facility]. He states that Dr Ramires was checking his HGB once a month. Dr Cisse/dr Ramires: please advise. documented in this encounter Plan of Treatment Upcoming Encounters Date Type Department Care Team (Late st Contact Info) Description 12/26/2023 9:40 AM EST Office Visit Family [facility] [address] [place] [address] Robinson Olson CRNP [address] [place] [address] 12/27/2023 2:30 PM EST Imaging Radiology [facility]st [facility] 132 [facility] [place] [address] 01/07/2024 11:00 AM EST Procedure Only Urology, [facility] 132 [facility] [place] [address] Frank Peraza MD [address] [place] [address] 01/20/2024 4:00 PM EST Office Visit Hematology/Oncology [facility] 200 [facility] [place] [address] Jennifer Ramires MD 200 [place] [address] 02/04/2024 11:20 AM EST Office Visit Family Practice [facility] [address] Robinson Olson CR[facility] 132 [facility] [address] 03/13/2024 2:00 PM EDT Office Visit Dermatology [facility] [address] [place] [address] Francisco Watson MD 200 [place] [address] 08/20/2024 10:15 AM EDT Office Visit Ophthalmology, [facility] 132 [facility] [place] [address] Cody Gonzalez DO [address] [place] [address] Scheduled Procedures Name Priority Associated Diagnoses Date/Ti [...] Additional history exists CKD PHOS USE SMARTSET 90271 01/28/202401/03, 07/26/2022, 12/05/2021, Additional history exists Diabetic Foot Exam 03/06/2024 03/06/2023, 0 01/03/2022, 03/02/2021, Additional history exists GFR 05/17/2024 11/16/2023, 08/03, 07/24/2023, Additional history exists HbA1c 05/28/2024 11/27/2023, 05/03, 01/28/2023, Additional history exists Albumin/Creatinine Ratio 07/12/2024 023, 10/01/2022, 09/11/2021, Additional history exists COLONOSCOPY-ANNUAL AGES 18-100 08/09/2024 08/09/2023, 11/07/2022, 11/07/2022, Additional history exists CKD HGB USE SMARTSET 70496 12/06/202412/06, 12/06/2023, 11/16/2023, Additional history exists Lipid [...] this encounter Medical Devices Implanted Type Area Document Processor Device Identifier Shelf Expiration Date Model / Serial / Lot Clareon Iol Aspheric Hydrophobic Acrylic Iol Implanted:Qty: 1 on 04/23/2023 by Cody Gonzalez DO at OR [facility] Lens Left: Eye 11/12/2025 CNA0T0 / [id number] / Viatorr Tips Endoprosthesis 8-10 Mm X 8cm / 2cm Implanted:Qty: 1 on 10/07/2020 by Go Alvarado MD at [facility] Right: Abdomen 03/03/2023 [id number] / / [id number] Description:Viatorr TIPS End oprosthesis 8-10 mm x 8cm / 2cm, Manufactored by [employer] Syr Pf 2ml Embospheres 100-300 - [id number] Implanted:Qty: 1 on 04/18/2021 by Kevin Lim DO at OR [facility] Left: Abdomen [employer] [id number] 11/25/2023 S220GH / / [id number] -5 Syr Pf 2ml Embospheres 100-300 - [id number] Implanted:Qty: 1 on 03/28/2022 at [facility] [employer] [id number] 08/31/2024 S220GH / / [id number] -5 Clareon Iol Aspheric Hydrophobic Acrylic Iol Implanted:Qty: 1 on 04/02/2023 by Cody Gonzalez DO at OR [facility] Right: Eye JAZMIN 11/12/2025 CNA0T0 / [id number] / documented as of this encounter Advance Directives Documents on File Type Date Recorded 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 No Full Code 07/22/2014 9:56 PM 07/24/2014 8:18 PM This order reflects the patients wishes and were consensually agreed upon. Question Answer Comments Discussion of Advance Directives occurred with: Patient Does the patient have a Living Will? No Does the patient have Health Care Power of Trimming Caser? No Care Teams Concrete Conveyor Operator Relationship Specialty Start Date End Date Francisco Cisse MD 200 [place] [address] PCP - General Internal Medicine 09/04/21 documented as of this encounter
--- OUTSIDE RECORDS SUMMARY | 2024-01-25 17:15 | External Medical Summary | Summary of Care ---
Author Name Unknown Organization [facility] Address [address] [place] [address] Phone [phone] Care Team Providers Care Chip Frier Name Role Phone Francisco Cisse MD Primary Care Provider + Reason for Visit * Reason Onset Date Comments case management 12/17/2023 Encounter Details Date Type Department Care Team (Late st Contact Info) Description 12/17/2023 Learning Support Aide Telephone Care Coordination and Integration [address], [place] [phone] Ximena Pretty RN [address], [place] [id number] case management Allergies No known active allergiesdocumented [...] mRNA, LNP-s, No Pre serve, 2-Dose Series ([employer]) 03/08/2021,02/15/2021 HepA Inact/HepB Recomb>=18yrs old 12/04/2019,04/2019,05/20/2019 11/19/2019 [...] 12:56 PM EST Patient was discharged from [facility] on Saturday. His hgb on discharge was 7.2 He states that he is still having bloody urine. He states that he received blood transfusions in the past, he is not sure who ordered these. He does not want to have to go inpatient for a blood transfusion. He would like to have it outpatient at [facility]. He states that Dr Ramires was checking his HGB once a month. Dr Cisse/dr Ramires: please advise. documented in this encounter Plan of Treatment Upcoming Encounters Date Type Department Care Team (Late st Contact Info) Description 12/27/2023 2:30 PM EST Imaging Radiology [facility] 1st [facility] [place] 132 [facility] [place] [address] 01/07/2024 11:00 AM EST Procedure Only Urology, [facility] 132 [facility] [place] [address] Frank Peraza MD 27 [facility] [address] [place] [address] 01/20/2024 4:00 PM EST Office Visit Hematology/Oncology [facility] 200 [facility] [place] [address] Jennifer Ramires MD 200 [facility] [place], [place] [address] 02/04/2024 11:20 AM EST Office Visit Family Practice [facility] 132 [facility] [place] [address] Robinson Olson CRNP 132 [facility] [place] [address] 03/13/2024 2:00 PM EDT Office Visit Dermatology [facility] 200 [facility] [place] [address] Francisco Watson MD 200 [facility] [place] [address] 08/20/2024 10:15 AM EDT Office Visit Ophthalmology, [facility] 132 [facility] [place] [address] Cody Gonzalez, DO 21 [facility] [place] [address] Scheduled Procedures Name Priority Associated Diagnoses Date/Ti [...] Additional history exists CKD PHOS USE SMARTSET 95944 01/28/202401/03, 07/26/2022, 12/05/2021, Additional history exists Diabetic Foot Exam 03/06/2024 03/06/2023, 0 01/03/2022, 03/02/2021, Additional history exists GFR 05/17/2024 11/16/2023, 08/03, 07/24/2023, Additional history exists HbA1c 05/28/2024 11/27/2023, 05/03, 01/28/2023, Additional history exists Albumin/Creatinine Ratio 07/12/2024 023, 10/01/2022, 09/11/2021, Additional history exists COLONOSCOPY-ANNUAL AGES 18-100 08/09/2024 08/09/2023, 11/07/2022, 11/07/2022, Additional history exists CKD HGB USE SMARTSET 76106 12/06/202412/06, 12/06/2023, 11/16/2023, Additional history exists Lipid [...] this encounter Medical Devices Implanted Type Area Bus Info Consultant Device Identifier Shelf Expiration Date Model / Serial / Lot Clareon Iol Aspheric Hydrophobic Acrylic Iol Implanted:Qty: 1 on 04/23/2023 by Cody Gonzalez DO at OR [facility] Lens Left: Eye 11/12/2025 CNA0T0 / [id number] / Viatorr Tips Endoprosthesis 8-10 Mm X 8cm / 2cm Implanted:Qty: 1 on 10/07/2020 by Go Alvarado MD at [facility] Right: Abdomen 03/03/2023 [id number] / / [id number] Description:Viatorr TIPS End oprosthesis 8-10 mm x 8cm / 2cm, Manufactored by [employer] Syr Pf 2ml Embospheres 100-300 - [id number] Implanted:Qty: 1 on 04/18/2021 by Kevin Lim DO at OR [facility] Left: Abdomen [employer] [id number] 11/25/2023 S220GH / / [id number] Syr Pf 2ml Embospheres 100-300 - [id number] Implanted:Qty: 1 on 03/28/2022 at [facility] [employer] [id number] 08/31/2024 S220GH / / [id number] -[id number] Clareon Iol Aspheric Hydrophobic Acrylic Iol Implanted:Qty: 1 on 04/02/2023 by Cody Gonzalez DO at OR [facility] Right: Eye JAZMIN 11/12/2025 CNA0T0 / [id number] / documented as of this encounter Advance Directives Documents on File Type Date Recorded Patient Chip Unloader Expl anation Advance Directives and Living Will 12/11/2022 ADVANCE DIRECTIVE / LIVING WILL LIVING WILL Power of Pattern Marker 12/11/2022 POWER OF A TTORNEY Latest Code [...] the patient have Health Care Power of Pattern Marker? No Full Code 07/22/2014 9:56 PM 07/24/2014 8:18 PM This order reflects the patients wishes and were consensually agreed upon. Question Answer Comments Discussion of Advance Directives occurred with: Patient Does the patient have a Living Will? No Does the patient have Health Care Power of Pattern Marker? No Care Teams Chip Frier Relationship Specialty Start Date End Date Francisco Cisse MD [address] [place] [address] PCP - General Internal Medicine 09/04/21 documented as of this encounter
--- OUTSIDE RECORDS SUMMARY | 2024-01-25 17:15 | External Medical Summary | Summary of Care ---
Author Name Unknown Organization [facility] Address [address] [facility] [place] [address] Phone [phone] Care Team Providers Care Hide And Skin Colerer Name Role Phone Francisco Cisse MD Primary Care Provider + Encounter Details Date Type Department Care Team (Late st Contact Info) Description 12/13/2023 Result Scan Unspecified Department <No scans attached> Allergies No known active allergiesdocumented as of this encounter (statuses as of 12/16/2023) Medications Medication Sig Dispensed Refills Start Date [...] as of this encounter (statuses as of 12/16/2023) Active Problems Problem Noted Date Diagnosed Date [...] as of this encounter (statuses as of 12/16/2023) Resolved Problems Problem Noted Date Diagnosed Date [...] as of this encounter (statuses as of 12/16/2023) Immunizations Name Administration Dates Next Due COVID-19 mRNA, LNP-s, No Pre serve, 2-Dose Series ([employer]) 03/08/2021,02/15/2021 HepA Inact/HepB Recomb>=18yrs old 12/04/2019,04/2019,05/20/2019 11/19/2019 PPD 06/18/2017, 3,01/09/2012,06/2011 Pneumococcal Conjugate Vacc, 13 Valent (Prevnar) 05/01/2017 Pneumococcal Polysaccharide PPV23 (Pneumovax) 08/28/2022,10/25/2015,07/14/2012 Season Influenza, Quad, PF, Adjuvanted, 65+ Yrs, IM (FLUAD) 10/07/2020(Deferred: Patient Refused - pt says he already had his shot last month at [facility]y Lyons and Mckinley Cobian made [...] Description 12/27/2023 2:30 PM EST Imaging Radiology [facility] 1st [facility] 132 [facility] [place] [address] 01/07/2024 11:00 AM EST Procedure Only Urology, [facility] [address] [place] [address] Frank Peraza MD 27 [facility] [address] [place] [address] 01/20/2024 4:00 PM EST Office Visit Hematology/Oncology [facility] [address] [place] [address] [address] Jennifer Ramires MD [address] [place] [address] [address] 02/04/2024 11:20 AM EST Office Visit Family Practice [facility] 132 [facility] [place] [address] Robinson Olson CRNP [address] [place] [address] 03/13/2024 2:00 PM EDT Office Visit Dermatology [facility] [address] [place] [address] Francisco Watson MD 200 [facility] [place] [address] 08/20/2024 10:15 AM EDT Office Visit Ophthalmology, [facility] 132 [facility] [place] [address] Cody Gonzalez, DO 21 [facility] [address] [place] [phone] Scheduled Procedures Name Priority Associated Diagnoses Date/Ti [...] Additional history exists CKD PHOS USE SMARTSET 86098 01/28/202401/03, 07/26/2022, 12/05/2021, Additional history exists Diabetic Foot Exam 03/06/2024 03/06/2023, 0 01/03/2022, 03/02/2021, Additional history exists GFR 05/17/2024 11/16/2023, 08/03, 07/24/2023, Additional history exists HbA1c 05/28/2024 11/27/2023, 05/03, 01/28/2023, Additional history exists Albumin/Creatinine Ratio 07/12/2024 023, 10/01/2022, 09/11/2021, Additional history exists COLONOSCOPY-ANNUAL AGES 18-100 08/09/2024 08/09/2023, 11/07/2022, 11/07/2022, Additional history exists CKD HGB USE SMARTSET 25530 12/06/202412/06, 12/06/2023, 11/16/2023, Additional history exists Lipid [...] this encounter Medical Devices Implanted Type Area Truck Despatcher Device Identifier Shelf Expiration Date Model / Serial / Lot Clareon Iol Aspheric Hydrophobic Acrylic Iol Implanted:Qty: 1 on 04/23/2023 by Cody Gonzalez DO at OR [facility] Lens Left: Eye 11/12/2025 CNA0T0 / [id number] / Viatorr Tips Endoprosthesis 8-10 Mm X 8cm / 2cm Implanted:Qty: 1 on 10/07/2020 by Go Alvarado MD at [facility] Right: Abdomen 03/03/2023 [id number] / / [id number] Description:Viatorr TIPS End oprosthesis 8-10 mm x 8cm / 2cm, Manufactored by [employer] Syr Pf 2ml Embospheres 100-300 - [id number] Implanted:Qty: 1 on 04/18/2021 by Kevin Lim DO at OR [facility] Left: Abdomen [employer] [id number] 11/25/2023 S220GH / / [id number] -[id number] Syr Pf 2ml Embospheres 100-300 - [id number] Implanted:Qty: 1 on 03/28/2022 at [facility] [employer] [id number] 08/31/2024 S220GH / / [id number] -5 Clareon Iol Aspheric Hydrophobic Acrylic Iol Implanted:Qty: 1 on 04/02/2023 by Cody Gonzalez DO at OR [facility] Right: Eye JAZMIN 11/12/2025 CNA0T0 / [id number] / documented as of this encounter Procedures Procedure Name Priority Date/Time Associated Diagnosis Comments RADIOLOGY SCANNED RESULT 12/13/2023 documented in this encounter Results * RADIOLOGY SCANNED RESULT (12/13/2023) 12/13/2023 No Physician Data Unknown DIAGNOSTIC RAD IOLOGY SERVICES documented in this encounter Advance Directives Documents on File Type Date Recorded Patient Stone Derrickman And Rigger Expl anation Advance Directives and Living Will 12/11/2022 ADVANCE DIRECTIVE / LIVING WILL LIVING WILL Power of Security Operations Manager 12/11/2022 POWER OF A TTORNEY Latest [...] patient have Health Care Power of Security Operations Manager? No Full Code 07/22/2014 9:56 PM 07/24/2014 8:18 PM This order reflects the patients wishes and were consensually agreed upon. Question Answer Comments Discussion of Advance Directives occurred with: Patient Does the patient have a Living Will? No Does the patient have Health Care Power of Security Operations Manager? No Care Teams Hide And Skin Colerer Relationship Specialty Start Date End Date Francisco Cisse MD [address] [place] [address] PCP - General Internal Medicine 09/04/21 documented as of this encounter
--- OUTSIDE RECORDS SUMMARY | 2024-01-25 17:15 | External Medical Summary | Summary of Care ---
Author Name Unknown Organization [facility] Address [address] [facility] [address] Phone [phone] Care Team Providers Care Dollyman Name Role Phone Francisco Cisse MD Primary Care Provider + Encounter Details Date Type Department Care Team (Late st Contact Info) Description 12/16/2023 Orders Only General Internal Medicine [facility] 200 [facility] [place] [address] [facility] [address] Allergies No known active allergiesdocumented as of [...] 02/09/2019 04/13/2021 Overview: Per CKD protocol #1 FOFAAN (nonalcoholic steatohepatitis) 09/03/2018 01/18/2023 NAFLD (nonalcoholic fatty [...] mRNA, LNP-s, No Pre serve, 2-Dose Series (Immunetics) 03/08/2021,02/15/2021 HepA Inact/HepB Recomb>=18yrs old 12/04/2019,04/2019,05/20/2019 11/19/2019 [...] Description 12/27/2023 2:30 PM EST Imaging Radiology [facility] 1st [facility] [address] [place] [address] 01/07/2024 11:00 AM EST Procedure Only Urology, [facility] [address] [place] [address] Frank Peraza MD 27 [facility] [address] [place] [address] 01/20/2024 4:00 PM EST Office Visit Hematology/Oncology [facility] [address] [address] Jennifer Ramires MD [address] [place] [address] 02/04/2024 11:20 AM EST Office Visit Family Practice [facility] 132 [facility] [place] [address] Robinson Olson CRNP [address] [place] [address] 03/13/2024 2:00 PM EDT Office Visit Dermatology [facility] [address] [place] [address] [address] Francisco Watson MD 200 [facility] [place] [address] 08/20/2024 10:15 AM EDT Office Visit Ophthalmology, [facility] [address] [place] [address] Cody Gonzalez, DO [address] [place] [address] Scheduled Procedures Name Priority Associated Diagnoses Date/Ti [...] Additional history exists CKD PHOS USE SMARTSET 99375 01/28/202401/03, 07/26/2022, 12/05/2021, Additional history exists Diabetic Foot Exam 03/06/2024 03/06/2023, 0 01/03/2022, 03/02/2021, Additional history exists GFR 05/17/2024 11/16/2023, 08/03, 07/24/2023, Additional history exists HbA1c 05/28/2024 11/27/2023, 05/03, 01/28/2023, Additional history exists Albumin/Creatinine Ratio 07/12/2024 023, 10/01/2022, 09/11/2021, Additional history exists COLONOSCOPY-ANNUAL AGES 18-100 08/09/2024 08/09/2023, 11/07/2022, 11/07/2022, Additional history exists CKD HGB USE SMARTSET 23144 12/06/202412/06, 12/06/2023, 11/16/2023, Additional history exists Lipid [...] this encounter Medical Devices Implanted Type Area Degree Clerk Device Identifier Shelf Expiration Date Model / Serial / Lot Clareon Iol Aspheric Hydrophobic Acrylic Iol Implanted:Qty: 1 on 04/23/2023 by Cody Gonzalez DO at OR [facility] Lens Left: Eye 11/12/2025 CNA0T0 / [id number] / Viatorr Tips Endoprosthesis 8-10 Mm X 8cm / 2cm Implanted:Qty: 1 on 10/07/2020 by Go Alvarado MD at [facility] Right: Abdomen 03/03/2023 [id number] / / [id number] Description:Viatorr TIPS End oprosthesis 8-10 mm x 8cm / 2cm, Manufactored by [employer] Syr Pf 2ml Embospheres 100-300 - [id number] Implanted:Qty: 1 on 04/18/2021 by Kevin Lim DO at OR [facility] Left: Abdomen [employer] [id number] 11/25/2023 S220GH / / [id number] -[id number] Syr Pf 2ml [facility] 100-300 - [id number] Implanted:Qty: 1 on 03/28/2022 at [facility] [employer] [id number] 08/31/2024 S220GH / / [id number] -5 Clareon Iol Aspheric Hydrophobic Acrylic Iol Implanted:Qty: 1 on 04/02/2023 by Cody Gonzalez DO at [facility] Right: Eye JAZMIN 11/12/2025 CNA0T0 / [id number] / documented as of this encounter Procedures Procedure Name Priority Date/Time Associated Diagnosis Comments CT ABD/PELVIS W IV AND W ORAL CONTRAST Routine 12/12/2023 documented in this encounter Results * CT ABD/PELVIS W IV AND W ORAL CONTRAST (12/12/2023) Anatomical Region Laterality Modality Body, Abdomen, Pelvis Other 12/12/2023 History Per Patient RAD CT documented in this encounter Advance Directives Documents on File Type Date Recorded Patient Drapery Hand Expl anation Advance Directives and Living Will 12/11/2022 ADVANCE DIRECTIVE / LIVING WILL LIVING WILL Power of Para Operator 12/11/2022 POWER OF A TTORNEY Latest [...] the patient have Health Care Power of Para Operator? No Full Code 07/22/2014 9:56 PM 07/24/2014 8:18 PM This order reflects the patients wishes and were consensually agreed upon. Question Answer Comments Discussion of Advance Directives occurred with: Patient Does the patient have a Living Will? No Does the patient have Health Care Power of Para Operator? No Care Teams Dollyman Relationship Specialty Start Date End Date Francisco Cisse MD 200 [facility] [address] PCP - General Internal Medicine 09/04/21 documented as of this encounter
[2024-01-25 19:23] LABS: Hematocrit (blood only) 24.3 % (42.0-52.0); Hemoglobin 7.7 g/dl (14.0-18.0)
[2024-01-25] MEDS: METOCLOPRAMIDE HCL 5 MG TABLET PO PRN (20:25)
[2024-01-25] MEDS: MIRTAZAPINE TAB 15 MG TAB PO SCH (20:26)
[2024-01-25] MEDS: LANTUS PER UNIT CHARGE SQ SCH (20:31)
[2024-01-25 21:54] LABS: Appearance Urine Turbid (Clear); Bilirubin Urine Negative (Negative); Blood Urine 3+ (Negative); Color Urine Red; Glucose Urine UA Negative (Negative); Ketones Urine Negative (Negative); Leukocyte Esterase Urine Negative (Negative); Nitrite Urine Negative (Negative); Protein Urine 3+ (Negative); Specific Gravity Urine >= 1.030 (1.000-1.030); Urobilinogen Urine Negative (Negative)
[2024-01-25 21:56] LABS: Bacteria Urine Negative (Negative); Epithelial Cell Urine 0-5 /lpf (0-5); RBC Urine >30 /hpf (0-4); WBC Urine 0-5 /hpf (0-5)
--- NOTE | 2024-01-25 22:39 | Ultrasound Report ---
ULTRASOUND ASCITES CHECK CLINICAL HISTORY: Abdominal ascites. COMPARISON STUDY: Abdominal CT dated 12/12/2023. FINDINGS: Real-time cmaarena scale sonography of all 4 quadrants of the abdomen is performed to assess fo r abdominal ascites. There is a small volume of abdominopelvic ascites. The liver is cirrhotic in mor phology. The spleen is enlarged. IMPRESSION: Small volume abdominopelvic ascites. Electronically signed by: Scott Yepez M.D. 01/25/2024 10:36 PM
[2024-01-25] MEDS: FUROSEMIDE INJ 20 MG/2 ML VIAL IV ONE (22:48)
[2024-01-26] MEDS: FUROSEMIDE INJ 20 MG/2 ML VIAL IV ONE (01:29)
--- NOTE | 2024-01-26 06:09 | Communication Note ---
Date of Service: January 26, 2024 Uncontrolled SBP overnight 1 50-1 90s. Patient asymptomatic. AP Hypertensive urgency Patient previously on BP medications aside from current diuretic Rx on review of outpatient medication history. History of beta-jassi intolerance as per records. Initiate amlodipine for now (Preferred over KULWANT/ARB given top normal kidney function) Will relay to AM provider.
[2024-01-26 06:31] LABS: Basophils # (auto) 0.03 K/uL (0.00-0.20); Basophils % (auto) 0.8 %; Eosinophils # (auto) 0.27 K/uL (0.00-0.50); Eosinophils % (auto) 7.3 %; Hematocrit (blood only) 26.8 % (42.0-52.0); Hemoglobin 8.8 g/dl (14.0-18.0); Immature Granulocytes # (auto) 0.01 K/uL (0.01-0.20); Immature Granulocytes % (auto) 0.3 %; Lymphocytes # (auto) 0.68 K/uL (1.20-3.40); Lymphocytes % (auto) 18.4 %; Mean Corpuscular Hgb Conc 32.8 g/dL (32.0-36.0); Mean Corpuscular Volume 91.5 fL (80.0-100.0); Mean Platelet Volume 12.4 fL (9.4-12.4); Monocytes # (auto) 0.31 K/uL (0.11-0.59); Monocytes % (auto) 8.4 %; Neutrophils % (auto) 64.8 %; Platelet Count 81 K/uL (130-400); RDW Coefficient of Variation 18.4 % (11.5-14.5); Red Blood Count 2.93 M/uL (4.70-6.10)
[2024-01-26] MEDS: amLODIPine BESYLATE 5 MG TAB PO SCH (06:37)
[2024-01-26 07:03] LABS: Calcium 8.4 mg/dl (8.6-10.3); Creatinine Clr Calc Pharmacy 51.5 ml/min; Est GFR (African American) 61.6 ml/min; Est GFR (Non-African American) 53.1 ml/min; Magnesium 1.6 mg/dl (1.7-2.4); Potassium 3.8 mmol/L (3.5-5.1)
[2024-01-26] MEDS: MAGNESIUM SULFATE / D5W 1 GM/100 ML BAG IV SCH (10:25)
[2024-01-26 14:57] LABS: Hematocrit (blood only) 27.4 % (42.0-52.0); Hemoglobin 8.7 g/dl (14.0-18.0)
--- NOTE | 2024-01-26 15:47 | Hospitalist Progress Note ---
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 Also progressive abdominal distention without unusual pain. Patient reports compliance with home medication. Patient noted to have progressive hemoglobin drop. 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 He is being managed for the following: Shortness of breath on exertion Chest pain Symptomatic anemia Acute on chronic anemia likely secondary to blood loss/hematuria Patient presenting with chest pain and shortness of breath with exertion. Troponin and EKG WNL at presentation. Patient reports persistent hematuria for few weeks prior to arrival, admitting hemoglobin of 6.6. Patient being transfused with PRBC, follow H&H. Iv lasix w/ transfusion. Patient denies any blood in the stool or black stool. Hb drop last evening, needing additional prbc transfusion. Patient reports improvement in chest pain, no further chest pain. Continue telemetry monitoring. Ensure HnH stability prior to dc. Hematuria History of radiation cystitis Patient with history of prostate cancer status post radiation treatment, follows with Dr. Peraza of [facility] urology. Urology evaluated, conservative management for now. Patient reports improving color of the urine. Patient to follow-up with urology in a week time upon discharge. 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 Repeat US abd in a week of dc. hepatocellular carcinoma status post IR embolization, possible recurrent tumor on imaging last month, outpatient IR procedure contemplated as per GI notes hx portal vein thrombus as per records DM2 insulin requiring, well-controlled as of recent hemoglobin A1c of 5.03 November 2023. history GAVE/esophageal varices/portal hypertensive gastropathy/radiation proctitis/diverticulosis on endoscopy BPH/prostate cancer status post radiation, thoracic compression fracture DVT prophylaxis. SCDs Re: Thrombocytopenia Full code Patient's son Mr. Alex Hale, contact # [phone]. Text document was generated using Dazo voice recognition software. It may contain grammatical or spelling errors. Kindly contact undersigned for clarification of any documentation item in question. Admission and Anticipated Discharge Date Admission Date: January 25, 2024 Subjective Patient was seen and examined at bedside. Patient was lying in bed, on room air, NAD. Patient reports feeling tired today, had blood level drop last evening and needed 1 more unit of blood transfusion. Denies any blood in the stool. Urine looks clearing of hematuria. He reports he is not drinking enough, urine looks concentrated. Patient advised to maintain adequate p.o. intake. Patient denies chest pain. Physical Exam Physical Exam: GENERAL: Coherent, comfortable, pleasant, slightly hard of hearing, no respiratory distress SKIN: Pallor, warm HEENT: Alopecia, bespectacled, pale palpebral conjunctivae, no ptosis, moist buccal mucosa NECK : Supple, no tenderness CHEST : Decreased breath sounds, no tenderness HEART : RRR, no obvious murmurs ABDOMEN: Marked abdominal distention, nontender BACK : Chronic mid back tenderness EXTREMITIES : Minimal LE swelling, no LE tenderness, no other conspicuous deformities noted NEUROLOGIC : Coherent, no facial asymmetry, gait and stance not assessed Results & Data Results & Data Vital Signs (Past 12 Hours) Vital Signs Temp Pulse Pulse Resp BP Pulse Ox O2 Del Method 01/26/24 15:07 67 01/26/24 11:23 36.6 C 68 18 156/55 H 93 Room Air 01/26/24 08:00 Room Air 01/26/24 07:41 36.7 C 65 18 149/61 H 93 Room Air 01/26/24 05:47 36.7 C 68 20 177/82 H 98 Nasal Cannula 01/26/24 05:11 Nasal Cannula O2 Flow Rate 01/26/24 15:07 01/26/24 11:23 01/26/24 08:00 01/26/24 07:41 01/26/24 05:47 2 01/26/24 05:11 2 (1) Anemia Anemia type: iron deficiency Iron deficiency anemia type: chronic blood loss Qualified Code(s): D50.0 - Iron deficiency anemia secondary to blood loss (chronic)
[2024-01-27 07:37] VITALS: RESP 16
[2024-01-27 09:56] LABS: Hematocrit (blood only) 26.9 % (42.0-52.0); Hemoglobin 8.6 g/dl (14.0-18.0); Mean Corpuscular Hemoglobin 29.6 pg (25.0-34.0); Mean Corpuscular Volume 92.4 fL (80.0-100.0); Mean Platelet Volume 13.2 fL (9.4-12.4); Platelet Count 72 K/uL (130-400); RDW Coefficient of Variation 17.9 % (11.5-14.5); RDW Standard Deviation 60.2 fL (36.4-46.3); Red Blood Count 2.91 M/uL (4.70-6.10); White Blood Count 3.46 K/ul (4.8-10.8)
[2024-01-27 10:21] LABS: Calcium 8.2 mg/dl (8.6-10.3); Magnesium 1.7 mg/dl (1.7-2.4); Potassium 4.5 mmol/L (3.5-5.1)
[2024-01-27] MEDS: FUROSEMIDE 40 MG/4 ML VIAL IV ONE (10:26)
[2024-01-27 10:27] LABS: BUN Creatinine Ratio 24.6 (10-20); Creatinine Clr Calc Pharmacy 50.7 ml/min; Est GFR (African American) 60.5 ml/min; Est GFR (Non-African American) 52.2 ml/min
--- NOTE | 2024-01-27 11:46 | Discharge Summary ---
Date of Service January 27, 2024 Admission HPI Per Admitting Provider History obtained from patient and records. 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 Multiple admissions (almost monthly) since July 2022. Last confinement last month for LGIB and chronic hematuria. Asymmetric bladder wall thickening versus intraluminal debris seen posteriorly on the right noted on imaging. Urology attributed hematuria to radiation cystitis, possible recurrent prostatic malignancy as per note. [place] [facility] [place]. Patient seen by [facility] urologist on follow-up visit last month following hospital admission. Office cystoscopy disclosed bleeding mucosa at the left bladder neck without clear papillary tumor. Consideration for radiation cystitis versus early urothelial malignancy as per note. Repeat cystoscopy, bladder biopsy, fulguration and possible TURBT contemplated next week. Persistent hematuria over the last few weeks without pain, urinary retention, fever or chills. Progressive abdominal distention without unusual pain. Patient compliant with home medications. Progressive hemoglobin drop on outpatient blood draws from 8 (12/23) to 7.4 (01/24) since last month. [facility] [place] recommended outpatient blood transfusion at [facility] 2 days from now. Patient told to go to ER with any chest pain or SOB symptoms. Overnight, patient with transient substernal pain symptoms mostly on exertion. Shortness of breath somewhat worse as well. No cough, no fever, no chills. Persistent hematuria without flank pain. Denies black/bloody stools. Chest pain relieved by nitroglycerin administration at home by EMS. 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 Admission Exam Per Admitting Provider GENERAL: Coherent, comfortable, pleasant, slightly hard of hearing, no respiratory distress SKIN: Pallor, warm HEENT: Alopecia, bespectacled, pale palpebral conjunctivae, no ptosis, moist buccal mucosa NECK : Supple, no tenderness CHEST : Decreased breath sounds, no tenderness HEART : RRR, no obvious murmurs ABDOMEN: Marked abdominal distention, nontender BACK : Chronic mid back tenderness EXTREMITIES : Minimal LE swelling, no LE tenderness, no other conspicuous deformities noted NEUROLOGIC : Coherent, no facial asymmetry, gait and stance not assessed Principal Diagnosis Shortness of breath on exertion Chest pain Symptomatic anemia Acute on chronic anemia likely secondary to multiple comorbidities including cancer/hematuria Discharge Exam GENERAL: Coherent, comfortable, pleasant, slightly hard of hearing, no respiratory distress SKIN: Pallor, warm HEENT: Alopecia, bespectacled, pale palpebral conjunctivae, no ptosis, moist bu ccal mucosa NECK : Supple, no tenderness CHEST : Decreased breath sounds, no tenderness HEART : RRR, no obvious murmurs ABDOMEN: Marked abdominal distention, nontender BACK : Chronic mid back tenderness EXTREMITIES : Minimal LE swelling, no LE tenderness, no other conspicuous deformities noted NEUROLOGIC : Coherent, no facial asymmetry, gait and stance not assessed Discharge Data Allergies Allergy/AdvReac Type Severity Reaction Status Date / Time No Known Allergies Allergy Mild Verified 12/12/23 12:04 Consultations 01/25/24 06:22 ED Decision to Admit Stat 01/25/24 08:09 Consult Urology Routine Ordered Studies 01/25/24 07:18 abdomen ltd ascites Stat Hospital Course (1) Anemia: Plan 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, hepatocellular carcinoma status post IR embolization, portal vein thrombosis, T2DM insulin requiring, chronic pancytopenia [baseline hemoglobin around 8], GAVE/esophageal varices/portal hypertensive gastropathy/radiation proctitis/diverticulosis on endoscopy, BPH, prostate cancer status postradiation, chronic hematuria secondary to radiation cystitis, thoracic compression fracture, lower GI bleed presented to the ED 01/25 with complaint of substernal chest pain mostly on exertion associated with some SOB ISO persistent hematuria over the last few weeks without pain, urinary retention, fever or chills. Also progressive abdominal distention without unusual pain. Patient reports compliance with home medication. Patient noted to have progressive hemoglobin drop. 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 He was managed for the following: Shortness of breath on exertion Chest pain Symptomatic anemia Acute on chronic anemia likely secondary to blood loss/hematuria Patient presenting with chest pain and shortness of breath with exertion. Troponin and EKG WNL at presentation. Patient reports persistent hematuria for few weeks prior to arrival, admitting hemoglobin of 6.6. Patient received multiple PRBC transfusion, H&H stable for about 2-day Patient denies any blood in the stool or black stool. Patient reports no chest pain, reports he is back to his baseline activity level. Patient is hemodynamically stable and would like to go home. Patient advised to follow-up with PCP and have blood lab drawn in a week time to check on hemoglobin/assess the need for blood transfusion. Hematuria History of radiation cystitis Patient with history of prostate cancer status post radiation treatment, follows with Dr. Peraza of [facility] urology. Urology evaluated, conservative management for now. Patient reports improving color of the urine. Patient to follow-up with urology in a week time upon discharge. 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 No abd pain, abd is soft. Repeat US abd in a week of dc. Patient has been made aware to have repeat ultrasound of the abdomen done in a week time, advised to reach out to PCP office to set up the test. hepatocellular carcinoma status post IR embolization, possible recurrent tumor on imaging last month, outpatient IR procedure contemplated as per GI notes hx portal vein thrombus as per records DM2 insulin requiring, well-controlled as of recent hemoglobin A1c of 5.03 November 2023. history GAVE/esophageal varices/portal hypertensive gastropathy/radiation proctitis/diverticulosis on endoscopy BPH/prostate cancer status post radiation, thoracic compression fracture DVT prophylaxis. SCDs Re: Thrombocytopenia Full code Patient's son Mr. Alex Hale, contact # [phone]. Patient is being discharged to home with following instruction at the point of discharge: Follow-up with your primary care physician within a week time and likely you will need labs CBC/CMP/magnesium/phosphorus. You received blood transfusion, your hemoglobin level has been stable, you have stated that you have been back to your baseline strength and would like to go home. Please have your blood level checked in a week time at your PCP office and they will assess if you need outpatient blood transfusion. You have chronic hematuria, maintain your follow-up with urology coming for assessment/management. Maintain low-sodium diet, fluid restriction of 1800 mL a day, continue with your prior to arrival home Lasix. Follow-up with the GI doctor in 1 to 2 weeks time upon discharge. You will need repeat ultrasound of the abdomen to assess for ascites/assess the need for paracentesis, coordinate with your PCP office to set up the test. For your history of hepatocellular carcinoma and recurrent tumor on imaging, fo llow-up with the outpatient interventional radiology appointments. Take your medications as prescribed. Please make sure that you are able to get your medications today by calling your pharmacy before you leave the hospital so that your treatment continuity is not broken. Text document was generated using [employer] voice recognition software. It may contain grammatical or spelling errors. Kindly contact undersigned for clarification of any documentation item in question. Home Health Attestation I certify that this patient is under my care and that I, or a physicians seed laboratory assistant working with me, had a face to-face encounter that meets the home health [id number] encounter requirements with this patient. The encounter with the patient was in whole, or in part, for the following medical condition, which is the primary reason for home health care (list medical condition): I certify that, based on my findings, the following services are medically necessary home health services: My clinical findings support the need for the above services because: Further, I certify that my clinical findings support that this patient is homebound (i.e. absences from home require considerable and taxing effort and are for medical reasons or yazidi services or infrequently or of short duration when for other reasons) because: Certification for Home Health Services: Based on the above findings, I certify that this patient is confined to the home and needs intermittent fci care, physical therapy and/or speech therapy or continues to need occupational therapy. The patient is under my care, and I have initiated the establishment of the plan of care. This patient will be followed by a physician who will periodically review the plan of care. Total Time Total Time Spent Total Time Spent (In Minutes): 45 Discharge Plan Discharge Items Patient Disposition: Home - Self-Care Reason For Visit: SYMPTOMATIC ANEMIA Discharge Diagnosis: Shortness of breath on exertion Chest pain Symptomatic anemia Acute on chronic anemia likely secondary to multiple comorbidities including cancer/hematuria Activity: Resume your previous activity Non-emergency contact: Primary Care Provider Call non-emergency contact if: you have any medication questions, your symptoms worsen and your temperature is above 101.5 Follow-up/Referrals: Francisco Cisse MD [Primary Care Provider] - Diet: Heart Healthy Fluids: 1800ml (7 cups) Addtl Attending Provider Instructions: Follow-up with your primary care physician within a week time and likely you will need labs CBC/CMP/magnesium/phosphorus. You received blood transfusion, your hemoglobin level has been stable, you have stated that you have been back to your baseline strength and would like to go home. Please have your blood level checked in a week time at your PCP office and they will assess if you need outpatient blood transfusion. You have chronic hematuria, maintain your follow-up with urology coming for assessment/management. Maintain low-sodium diet, fluid restriction of 1800 mL a day, continue with your prior to arrival home Lasix. Follow-up with the GI doctor in 1 to 2 weeks time upon discharge. You will need repeat ultrasound of the abdomen to assess for ascites/assess the need for paracentesis, coordinate with your PCP office to set up the test. For your history of hepatocellular carcinoma and recurrent tumor on imaging, follow-up with the outpatient interventional radiology appointments. Take your medications as prescribed. Please make sure that you are able to get your medications today by calling your pharmacy before you leave the hospital so that your treatment continuity is not broken. Pending Studies at Discharge: No Stand-Alone Forms: My [facility], Smoking Cessation Medications and DC Order Prescriptions: New amlodipine [Norvasc] 5 mg Tablet 2.5 mg PO QAM Qty: 15 0RF Continued allopurinol 100 mg Tablet 200 mg PO BID furosemide [Lasix] 20 mg Tablet 40 mg PO QAM triamcinolone acetonide 0.1 % cream 1 applic TOPICAL BID PRN (Reason: PSORIATIC LESIONS WHEN NEEDED) acetaminophen [Tylenol] 325 mg Tablet 650 mg PO Q8H PRN (Reason: Pain) pantoprazole 40 mg tablet,delayed release (DR/EC) 40 mg PO BID 90 Days Qty: 180 0RF ferrous sulfate [iron] 325 mg (65 mg iron) Tablet 325 mg PO QAM acetylcysteine 600 mg Capsule 600 mg PO QAM Xifaxan 550 mg tablet 550 mg PO BID Men's 50 Plus Multivitamin 400-20-370 mcg Tablet 1 tab PO DAILY Probiotic 5 billion cell Capsule, Sprinkle 1 cap PO QAM finasteride 5 mg Tablet 5 mg PO QAM insulin glargine [Lantus U-100 Insulin] 100 unit/mL solution 25 unit subcut QPM baclofen 5 mg Tablet 5 mg PO AMPM PRN (Reason: Spasms) duloxetine [Cymbalta] 60 mg capsule,delayed release(DR/EC) 60 mg PO DAILY metoclopramide HCl 5 mg tablet 5 mg PO TID PRN (Reason: Nausea) mirtazapine [Remeron] 30 mg tablet 30 mg PO HS lactulose [Kristalose] 10 gram packet 10 g PO BID Qty: 15 0RF Rx Instructions: Titrate your lactulose as advised to have 2-3 good Bowel movements per day Discharge Orders: Discharge Order (Routine); Ordered 01/27/24 Ordered By: Dangelo George Admission Data Admit Date/Time: 01/25/24 07:22 Attending Provider: Dangelo George Admit Provider: Yordan Andersen Primary Care Provider: Francisco Cisse Other Providers: Yordan Andersen; Emeterio Philippe; Alex Blanco; Jose Ramon Rubi; Kristen Crowell; Pablo Ellis; Clara Chand Melissa A.; Zane Salas; Vandana Rios; Rc Borja; Truman Unger; Raulito Rashid
[2024-01-27 15:26] VITALS: BP 136/64; TEMP 98.1; O2SAT 97
[2024-01-27 16:07] VITALS: PULSE 69
== END 2024-01-27 19:03 | disposition home or self-care (01) | DRG 811 ==
LOC: ED 04:59 → 2N 07:22

== ENCOUNTER 2024-02-02 21:26 | Inpatient (IN) ==
--- OUTSIDE RECORDS SUMMARY | 2024-02-02 21:32 | External Medical Summary ---
Author Name Unknown Address Unknown Organization [id number]:[facility] - [address] [place] [id number] Laboratory Report Ordering Provider Test Date Status NEELAM RICCI 01/30/2024 10:20:46 Final Observation Date Value Abnormality Reference (Units ) Status SYNC LEUKOCYTES IN BLOOD BY AUTOMATED COUNT 01/30/2024 10:20:46 3.71 Below low normal 4.00-10.80 (K/uL) Final Segs 01/30/2024 10:20:46 62.7 40.0-75.0 (%) Final Lymphs % 01/30/2024 10:20:46 19.9 18.0-42.0 (%) Final Monos 01/30/2024 10:20:46 5.9 1.0-11.0 (%) Final Eosinophils 01/30/2024 10:20:46 9.4 Above high normal 0.0-6.0 (%) Final Basos 01/30/2024 10:20:46 0.8 0.0-2.0 (%) Final Immature Granulocyte, Percent 01/30/2024 10:20:46 1.3 0.0-2.0 (%) Final Absolute Segs 01/30/2024 10:20:46 2.32 1.80-7.70 (K/uL) Final Lymphs, absolute 01/30/2024 10:20:46 0.74 Below low normal 1.00-4.80 (K/ul) Final Monos, Abs 01/30/2024 10:20:46 0.22 0.00-1.10 (K/uL) Final Eos, Abs 01/30/2024 10:20:46 0.35 0.00-0.70 (K/uL) Final Basos, Abs 01/30/2024 10:20:46 0.03 0.00-0.20 (K/uL) Final Immature Granulocytes, Number 01/30/2024 10:20:46 0.05 0.00-0.20 (K/uL) Final Performing Location [facility] - [address] [place], [place] [address]marli Briones. [place] [id number]
--- OUTSIDE RECORDS SUMMARY | 2024-02-02 21:32 | External Medical Summary | Summary of Care ---
Author Name Unknown Organization [facility] Address [address] [place] [address] Phone [phone] Care Team Providers Care Coat Joiner Name Role Phone Francisco Cisse MD Primary Care Provider + Reason for Visit * Reason Onset Date Comments Appointment 01/23/2024 IR Encounter Details Date Type Department Care Team (Late st Contact Info) Description 01/23/2024 Telephone Interventional Radiology [facility], [facility] 1st Floor [address] [place] [address] ADDRESS AVAILABLE Appointment (IR) Allergies No known active allergiesdocumented as of this encounter (statuses as of 01/30/2024) Medications Medication Sig Dispensed Refills Start Date End Date Status Tylenol 325 MG Oral Capsule (Acetaminophen) Take 650 mg by mouth every 8 hours as needed for Pain (fever). 0 Suspended Medine Verio In Vitro Strip (Glucose Blood)Indications:T ype 2 diabetes mellitus with hemoglobin A1c goal of less than 7.0% ([facility]) Use to test blood sugars 3 times a day 300 Strip 5 09/27/2022 Suspended Additional Information BD Pen Needle Elizabeth 2nd Gen 32G X 4 MM USE DIRECTED TO ADMINISTER INSULIN AT DINNER DAILY 0 09/25/2022 Suspended Triamcinolone Acetonide 0.1 % External Cream (Aristocort) Apply to psoriatic lesions twice a day as needed for 2-3 weeks 453.6 g 0 11/21/2022 Suspended Additional Information Mirtazapine 30 MG Oral Tablet (Remeron)Indication s:Neoplastic (malignant) related fatigue,Depression due to physical illness Take 1 Tablet by mouth at bedtime. 90 Tablet 1 02/15/2023 Suspended Additional Information Lactulose 10 GM Oral Packet (Kristalose)Indicat ions:Cirrhosis of liver without ascites, unspecified hepatic cirrhosis type (HCC) Take 1 Packet by mouth in the morning and 1 Packet before bedtime. 60 Packet 5 03/06/2023 Suspended Additional Information Multivitamin Men 50+ Oral Tablet Take by mouth. 0 Suspe nded High Potency Iron 65 MG Oral Tablet Take by mouth. 0 Lisa pended Zinc 50 MG Oral Capsule Take 1 Capsule by mouth in the morning. 0 Suspended N-Acetyl Cysteine 600 MG Oral Tablet (Acetylcysteine (Nutrient)) Take by mouth. 0 Suspended FreeStyle Wang 2 Sensor Use as directed. Every 14 days 2 Each 5 05/28/2023 Suspended Probiotic (Lactobacillus) Oral Capsule 1 Capsule. 0 05/17/2023 Suspended Furosemide 20 MG Oral Tablet (Lasix)Indications: Cirrhosis of liver with ascites, unspecified hepatic cirrhosis type (HCC) Take 2 Tablets by mouth in the morning. 180 Tablet 3 07/30/2023 Suspended Additional Information oxygen IN GAS Use 2 L/min(Oxygen) as directed at bedtime. 0 Suspended Albumin Human 25 % Intravenous SolutionIndications :Cirrhosis of liver with ascites, unspecified hepatic cirrhosis type (HCC) 25Gm before and after paracentesis 100 mL 0 08/22/2023 Suspended Additional Information Metoclopramide HCl 5 MG Oral Tablet (Reglan) One tab as often as 3 times a day, if needed for nausea 90 Tablet 3 08/30/2023 Suspended Additional Information Pantoprazole Sodium 40 MG Oral Tablet Delayed Release (Protonix)Indicatio ns:GAVE (gastric antral vascular ectasia) Take 1 Tablet by mouth in the morning and 1 Tablet in the evening. 60 Tablet 5 09/02/2023 Suspended Additional Information Finasteride 5 MG Oral Tablet (Proscar) Take 1 Tablet by mouth in the morning. 90 Tablet 1 09/02/2023 Suspended Additional Information Zoster Vac Recomb Adjuvanted 50 MCG/0.5ML Intramuscular Suspension Reconstituted (Shingrix) Inject 0.5 mL into a large muscle now and repeat dose in 60 to 180 days 1 Each 1 10/11/2023 Suspended Additional Information Patient not taking.Reported on 01/30/2024 Allopurinol 100 MG Oral Tablet (Zyloprim)Indicatio ns:Gout of big toe Take 2 Tablets by mouth in the morning. 180 Tablet 2 10/28/2023 Suspended Additional Information Lantus 100 UNIT/ML Subcutaneous Solution Inject 25 Units under the skin every evening. With dinner 3 Each 5 11/14/2023 Suspended Additional Information rifAXIMin 550 MG Oral Tablet (Xifaxan)Indication s:Cirrhosis of liver (HCC),Hepatic encephalopathy (HCC) Take 1 Tablet by mouth in the morning and 1 Tablet before bedtime. 180 Tablet 5 11/26/2023 Suspended Additional Information DULoxetine HCl 30 MG Oral Capsule Delayed Release Particles (Cymbalta) Take 1 Capsule by mouth in the morning. 90 Capsule 1 01/02/2024 Suspended Additional Information Hospital, Clinic, or Other Facility Administered Medication [...] as of this encounter (statuses as of 01/30/2024) Active Problems Problem Noted Date Diagnosed Date [...] as of this encounter (statuses as of 01/30/2024) Resolved Problems Problem Noted Date Diagnosed Date [...] as of this encounter (statuses as of 01/30/2024) Immunizations Name Administration Dates Next Due COVID-19 mRNA, LNP-s, No Pre serve, 2-Dose Series ([employer]) 03/08/2021,02/15/2021 HepA Inact/HepB Recomb>=18yrs old 12/04/2019,04/2019,05/20/2019 11/19/2019 PPD 06/18/2017, 3,01/09/2012,06/2011 Pneumococcal Conjugate Vacc, 13 Valent (Prevnar) 05/01/2017 Pneumococcal Polysaccharide PPV23 (Pneumovax) 08/28/2022,10/25/2015,07/14/2012 Season Influenza, Quad, PF, Adjuvanted, 65+ Yrs, IM (FLUAD) 10/07/2020(Deferred: Patient Refused - pt says he already had his shot last month at [facility] Handy Lyons and Mckinley Cobian [...] Care Team (Late st Contact Info) Description 02/04/2024 8:40 AM EST Laboratory Lab Mobile Phlebotomy [facility] [address] [place] [address] [facility] [address] [place] [address] 02/07/2024 11:00 AM EST Telemedicine [facility] [place] [place] [address] [place] [address] Aidee Miller PA-C [address] [place] [address] Kriss Mays, Community Health Director Of Counseling [address] [place] [address] 02/14/2024 2:45 PM EDT Office Visit Urology Lynnette Fitzpatrick [address] [place] [address] Frank Peraza MD [address] [place] [address] 02/18/2024 8:40 AM EDT Laboratory Lab Mobile Phlebotomy [facility] [address] [place] [address] [facility] [address] [place] [address] 02/24/2024 10:45 AM EDT Imaging Radiology [address] [place] [address] 03/03/2024 8:40 AM EDT Laboratory Lab Mobile Phlebotomy [facility] [address] [place] [address] [facility] Draw [address] [place] [address] 03/13/2024 2:00 PM EDT Office Visit Dermatology [facility] [address] [place] [address] Francisco Watson MD [address] [place] [address] 03/17/2024 8:40 AM EDT Laboratory Lab Mobile Phlebotomy [facility] [address] [place] [address] [facility] Draw [address] [place] [address] 03/24/2024 2:30 PM EDT Office Visit Hematology/Oncology [facility] [address] [facility] [place] [id number] Ayaka Tatum CRNP [address] [place] [address] 03/30/2024 12:00 PM EDT Office Visit Family Practice [facility] [address] [place] [address] Kristen Vences DO [address] [place] [address] 03/31/2024 8:40 AM EDT Laboratory Lab Mobile Phlebotomy [facility] [address] [place] [address] [facility] [address] [place] [address] 04/07/2024 10:00 AM EDT Office Visit Gastroenterology, [facility] [address] [place] [address] Lamar Tatum CRNP [address] [place] [address] 04/14/2024 8:40 AM EDT Laboratory Lab Mobile Phlebotomy [facility] [address] [place] [address] [facility] [address] [place] [address] 04/28/2024 8:40 AM EDT Laboratory Lab Mobile Phlebotomy [facility] [address] [place] [address] [facility] [address] [place] [address] 05/12/2024 8:40 AM EDT Laboratory Lab Mobile Phlebotomy [facility] [address] [place] [address] [facility] [address] [place] [address] 05/26/2024 8:40 AM EDT Laboratory Lab Mobile Phlebotomy [facility] [address] [place] [address] [facility] [address] [place] [address] 06/09/2024 8:40 AM EDT Laboratory Lab Mobile Phlebotomy [facility] [address] [place] [address] [facility] [address] [place] [address] 06/23/2024 8:40 AM EDT Laboratory Lab Mobile Phlebotomy [facility] [address] [place] [address] [facility] [address] [place] [address] 07/07/2024 8:40 AM EDT Laboratory Lab Mobile Phlebotomy [facility] [address] [place] [address] [facility] [address] [place] [address] 07/21/2024 8:40 AM EDT Laboratory Lab Mobile Phlebotomy [facility] [address] [place] [address] [facility] [address] [place] [address] 08/04/2024 8:40 AM EDT Laboratory Lab Mobile Phlebotomy [facility] [address] [place] [address] [facility] [address] [place] [address] 08/18/2024 8:40 AM EDT Laboratory Lab Mobile Phlebotomy [facility] [address] [place] [address] [facility] [address] [place] [address] 08/20/2024 10:15 AM EDT Office Visit Ophthalmology, [address] [place] [address] Cody Gonzalez DO [address] [place], [place] [address] [address] 09/01/2024 8:40 AM EDT Laboratory Lab Mobile Phlebotomy [facility] [address] [place] [address] [facility] [address] [place] [address] 09/15/2024 8:40 AM EDT Laboratory Lab Mobile Phlebotomy [facility] [address] [place] [address] [facility] Mobile Home Draw [address] [place] [address] Scheduled Procedures Name Priority Associated Diagnoses Date/Ti ar CYSTOURETHROSCOPY WITH FULGU RATION MEDIUM BLADDER TUMOR Hematuria, gross Abnormal cystoscopy 01/30/2024 12:55 PM EST COLONOSCOPY FLEXIBLE PROXIMA L DIAGNOSTIC [...] Additional history exists CKD PHOS USE SMARTSET 72665 01/28/202401/03, 07/26/2022, 12/05/2021, Additional history exists Diabetic Foot Exam 03/06/2024 03/06/2023, 0 01/03/2022, 03/02/2021, Additional history exists HbA1c 05/28/2024 11/27/2023, 05/03, 01/28/2023, Additional history exists Albumin/Creatinine Ratio 07/12/2024 023, 10/01/2022, 09/11/2021, Additional history exists GFR 07/24/2024 01/24/2024, 01/02, 12/23/2023, Additional history exists COLONOSCOPY-ANNUAL AGES 18-100 08/09/2024 08/09/2023, 11/07/2022, 11/07/2022, Additional history exists CKD HGB USE SMARTSET 45259 01/29/2025, 01/30/2024, 01/24/2024, Additional history exists Lipid Panel 01/28/2028 01/28/2023, [...] this encounter Medical Devices Implanted Type Area Apns Device Identifier Shelf Expiration Date Model / Serial / Lot Clareon Iol Aspheric Hydrophobic Acrylic Iol Implanted:Qty: 1 on 04/23/2023 by Cody Gonzalez DO at OR [facility] Lens Left: Eye 11/12/2025 [id number] / [id number] / Viatorr Tips Endoprosthesis 8-10 Mm X 8cm / 2cm Implanted:Qty: 1 on 10/07/2020 by Go Alvarado MD at [facility] Right: Abdomen 03/03/2023 [id number] / / [id number] Description:Viatorr TIPS End oprosthesis 8-10 mm x 8cm / 2cm, Manufactored by [employer] Syr Pf 2ml Embospheres 100-300 - [id number] Implanted:Qty: 1 on 04/18/2021 by Kevin Lim DO at OR [facility] Left: Abdomen [employer] [id number] 11/25/2023 [id number] / / [id number] Lipiodol Injection - [id number] Implanted:Qty: 1 on 03/28/2022 at [facility] [employer] 03/01/2023 [id number] / / [id number] Syr Pf 2ml Embospheres 100-300 - [id number] Implanted:Qty: 1 on 03/28/2022 at [facility] [employer] [id number] 08/31/2024 S220GH / / [id number] -[id number] Clareon Iol Aspheric Hydrophobic Acrylic Iol Implanted:Qty: 1 on 04/02/2023 by Cody Gonzalez DO at OR [facility] Right: Eye JAZMIN 11/12/2025 [id number] / [id number] / documented as of this encounter Advance Directives Documents on File Type Date Recorded Patient Escalation Engineer Expl anation Advance Directives and Living Will 12/11/2022 ADVANCE DIRECTIVE / LIVING WILL LIVING WILL Power of Rug Cutter Helper 12/11/2022 POWER OF A TTORNEY Latest Code Status on File Code Status Date Activated Date Inactivated Comments Full Code 01/30/2024 2:07 PM This order reflects the patients wishes and were consensually agreed upon. Question Answer Comments Discussion of Advance Directives occurred with: Patient Code Status History Code Status Date Activated Date Inactivated Comments Full Code 01/30/2024 10:35 AM 01/30/2024 2:07 PM This order reflects the patients wishes and were consensually agreed upon. Question Answer Comments Discussion of Advance Directives occurred with: Patient Full Code 04/23/2023 8:54 AM 04/23/2023 3:33 PM Question Answer Comments Discussion of Advance Directives occurred with: Not Discussed due to patient's condition Full Code 04/02/2023 12:04 PM 04/02/2023 7:22 [...] the patient have Health Care Power of Rug Cutter Helper? No Care Teams Coat Joiner Relationship Specialty Start Date End Date Francisco Cisse MD [address] [place] [address] PCP - General Internal Medicine 09/04/21 documented as of this encounter
--- OUTSIDE RECORDS SUMMARY | 2024-02-02 21:32 | External Medical Summary ---
Author Name Unknown Address Unknown Organization [id number]:[facility] - [address] [place] [address] Laboratory Report Ordering Provider Test Date Status NEELAM RICCI 01/30/2024 10:20:46 Final Observation Date Value Abnormality Reference (Units ) Status WBC, Total 01/30/2024 10:20:46 3.71 Below low normal 4.00-10.80 (K/uL) Final RBC 01/30/2024 10:20:46 2.85 4.50-5.25 (M/uL) Final Hemoglobin 01/30/2024 10:20:46 8.6 Below low normal 14.0-16.8 (g/dL) Final HCT 01/30/2024 10:20:46 27.1 Below low normal 40.0-48.4 (%) Final MCV 01/30/2024 10:20:46 95.1 82.0-99.5 (fL) Final MCH 01/30/2024 10:20:46 30.2 27.0-34.0 (pg) Final MCHC 01/30/2024 10:20:46 31.7 32.0-36.0 (g/dL) Final RDW 01/30/2024 10:20:46 18.2 11.5-15.5 (%) Final Platelets 01/30/2024 10:20:46 93 Below low normal 140-400 (K/uL) Final MPV 01/30/2024 10:20:46 11.1 6.6-11.1 (fL) Final Nucleated erythrocytes/100 leukocytes [Ratio] in Blood by Automated count 01/30/2024 10:20:46 1 Above high normal <=0 (/100 WBCs) Final Performing Location [facility] [address] [facility] [place] [address]
--- OUTSIDE RECORDS SUMMARY | 2024-02-02 21:32 | External Medical Summary | Summary of Care ---
Author Name Unknown Organization [facility] Address [address] [facility] [address] Phone [phone] Care Team Providers Care Instructor Bridge Name Role Phone Francisco Cisse MD Primary Care Provider + Reason for Visit * Reason Comments Outpatient Testing * Auth/Cert Specialty Diagnoses / Procedures Referred By Chacho fleming Referred To Contact Diagnoses Hematuria, gross Abnormal cystoscopy Hematuria, gross [R31.0] Abnormal cystoscopy [R39.9] Procedures CYSTOSCOPY/TREAT MED BLADDER TUMOR CYSTOURETHROSCOPY WITH FULGURATION MEDIUM BLADDER TUMOR Referral ID Status Reason Start Date Expiration Date Visits Re quested Visits Authorized [id number] Encounter Details Date Type Department Care Team (Late st Contact Info) Description 01/30/2024 10:20 AM EST Laboratory Laboratory, [address] [address] [facility], Lab [address] [place] [address] Iron deficiency anemia, unspecified iron deficiency anemia type; Hematuria, gross Allergies No known active allergiesdocumented as of this encounter (statuses as of 01/30/2024) Medications Medication Sig Dispensed Refills Start Date End Date Status Tylenol 325 MG Oral Capsule (Acetaminophen) Take 650 mg by mouth every 8 hours as needed for Pain (fever). 0 Suspended OneTouch Verio In Vitro Strip (Glucose Blood)Indications:T [...] 1 Each 1 10/11/2023 Suspended Additional Information Allopurinol 100 MG Oral Tablet (Zyloprim)Indicatio ns:Gout [...] 90 Capsule 1 01/02/2024 Suspended Additional Information Lantus SoloStar 100 UNIT/ML Subcutaneous Solution Pen-injector once. 0 11/13/2023 Suspended Hospital, Clinic, or Other Facility Administered Medication [...] mRNA, LNP-s, No Pre serve, 2-Dose Series ([employer]) 03/08/2021,02/15/2021 HepA Inact/HepB Recomb>=18yrs old 12/04/2019,04/2019,05/20/2019 [...] 8:40 AM EST Laboratory Lab Mobile Phlebotomy [facility] [address] [place] [address] [facility], [facility] Mobile Home Draw [address] [place] [address] 02/07/2024 11:00 AM EST Telemedicine [facility], [place] [address] [place] [address] Aidee Miller PA-C [address] [place] [address] Kriss Mays, Community [facility] Agricultural Service Worker [address] [place] [address] 02/14/2024 2:45 PM EDT Office Visit Urology Karla ZhangLynnette [address] [place] [address] Frank Peraza MD [address] [place] [address] 02/18/2024 8:40 AM EDT Laboratory Lab Mobile Phlebotomy [facility] [address] [place] [address] [facility], [facility] Mobile Home Draw [address] [place] [address] 02/24/2024 10:45 AM EDT Imaging Radiology [address], [place] [address] [place] [address] 03/03/2024 8:40 AM EDT Laboratory Lab Mobile Phlebotomy [facility] [address] [place] [address] [facility], [facility] Mobile Home Draw [address] [place] [address] 03/13/2024 2:00 PM EDT Office Visit Dermatology [facility] [address] [facility] [place] [address] Francisco Watson MD 200 [facility] [place] [address] 03/17/2024 8:40 AM EDT Laboratory Lab Mobile Phlebotomy [facility] [address] [place] [address] [facility], [facility] Mobile Home Draw [address] [place] [address] 03/24/2024 2:30 PM EDT Office Visit Hematology/Oncology [facility] [address] [place] [id number] Ayaka Tatum CRNP [address] [place] [address] 03/30/2024 12:00 PM EDT Office Visit Family Practice [facility] [address] [place] [address] Kristen Vences DO [address] [place] [address] 03/31/2024 8:40 AM EDT Laboratory Lab Mobile Phlebotomy [facility] [address] [place] [address] [facility], [facility] Mobile Home Draw [address] [place] [address] 04/07/2024 10:00 AM EDT Office Visit Gastroenterology, [facility] [address] [place] [address] Lamar Tatum CRNP [address] [place] [address] 04/14/2024 8:40 AM EDT Laboratory Lab Mobile Phlebotomy [facility] [address] [place] [address] [facility], [facility] Mobile Home Draw [address] [place] [address] 04/28/2024 8:40 AM EDT Laboratory Lab Mobile Phlebotomy [facility] [address] [place] [address] [facility], [facility] Mobile Home Draw [address] [place] [address] 05/12/2024 8:40 AM EDT Laboratory Lab Mobile Phlebotomy C [address] [place] [address] [facility], [facility] Mobile Home Draw [address] [place] [address] 05/26/2024 8:40 AM EDT Laboratory Lab Mobile Phlebotomy C [address] [place] [address] [facility], [facility] Mobile Home Draw [address] [place] [address] 06/09/2024 8:40 AM EDT Laboratory Lab Mobile Phlebotomy [facility] [address] [place] [address] [facility], [facility] Mobile Home Draw [address] [place] [address] 06/23/2024 8:40 AM EDT Laboratory Lab Mobile Phlebotomy [facility] [address] [place] [address] [facility], [facility] Mobile Home Draw [address] [place] [address] 07/07/2024 8:40 AM EDT Laboratory Lab Mobile Phlebotomy [facility] [address] [place] [address] [facility], [facility] Mobile Home Draw [address] [place] [address] 07/21/2024 8:40 AM EDT Laboratory Lab Mobile Phlebotomy [facility] [address] [place] [address] [facility], [facility] Mobile Home Draw [address] [place] [address] 08/04/2024 8:40 AM EDT Laboratory Lab Mobile Phlebotomy [facility] [address] [place] [address] [facility], Gml Mobile Home Draw [address] [place] [address] 08/18/2024 8:40 AM EDT Laboratory Lab Mobile Phlebotomy [facility] [address] [place] [address] [facility], G[facility] Mobile Home Draw [address] [place] [address] 08/20/2024 10:15 AM EDT Office Visit Ophthalmology, [facility] [address] [facility] [address] Cody Gonzalez DO [address] [place] [address] 09/01/2024 8:40 AM EDT Laboratory Lab Mobile Phlebotomy [facility] [address] [place] [address] Gm, [facility] Mobile Home Draw [address] [place] [address] 09/15/2024 8:40 AM EDT Laboratory Lab Mobile Phlebotomy [facility] [address] [place] [address] [facility], [facility] Mobile Home Draw [address] [place] [address] Pending Results Name Type Priority Associated Diagnoses Date /Time CBC WITH WBC DIFFERENTIAL Lab STAT Iron deficiency anemia, unspecified iron deficiency anemia type 01/30/2024 10:20 AM EST TYPE AND SCREEN Lab Routine Iron deficiency anemia, unspecified iron deficiency anemia type 01/30/2024 10:20 AM EST DIFFERENTIAL, AUTOMATED Lab STAT Iron deficiency anemia, unspecified iron deficiency anemia type 01/30/2024 10:20 AM EST Scheduled Procedures Name Priority Associated [...] Additional history exists CKD PHOS USE SMARTSET 67445 01/28/202401/03, 07/26/2022, 12/05/2021, Additional history exists Diabetic Foot Exam 03/06/2024 03/06/2023, 0 01/03/2022, 03/02/2021, Additional history exists HbA1c 05/28/2024 11/27/2023, 05/03, 01/28/2023, Additional history exists Albumin/Creatinine Ratio 07/12/2024 023, 10/01/2022, 09/11/2021, Additional history exists GFR 07/24/2024 01/24/2024, 01/02, 12/23/2023, Additional history exists COLONOSCOPY-ANNUAL AGES 18-100 08/09/2024 08/09/2023, 11/07/2022, 11/07/2022, Additional history exists CKD HGB USE SMARTSET 64786 01/29/2025, 01/24/2024, 01/24/2024, Additional history exists Lipid Panel 01/28/2028 [...] this encounter Medical Devices Implanted Type Area Account Manager Education Device Identifier Shelf Expiration Date Model / Serial / Lot Clareon Iol Aspheric Hydrophobic Acrylic Iol Implanted:Qty: 1 on 04/23/2023 by Cody Gonzalez DO at OR [facility] Lens Left: Eye 11/12/2025 CNA0T0 / [id number] / Viatorr Tips Endoprosthesis 8-10 Mm X 8cm / 2cm Implanted:Qty: 1 on 10/07/2020 by Go Alvarado MD at [facility] Right: Abdomen 03/03/2023 [id number] / / [id number] Description:Viatorr TIPS End oprosthesis 8-10 mm x 8cm / 2cm, Manufactored by [employer] Syr Pf 2ml Embospheres 100-300 - [id number] Implanted:Qty: 1 on 04/18/2021 by Kevin Lim DO at OR [facility] Left: Abdomen [employer] [id number] 11/25/2023 S220GH / / [id number] -[id number] Lipiodol Injection - [id number] Implanted:Qty: 1 on 03/28/2022 at [facility] [employer] 03/01/2023 [id number] 01-2 / / [id number] Syr Pf 2ml Embospheres 100-300 - [id number] Implanted:Qty: 1 on 03/28/2022 at [facility] [employer] [id number] 08/31/2024 S220GH / / [id number] -5 Clareon Iol Aspheric Hydrophobic Acrylic Iol Implanted:Qty: 1 on 04/02/2023 by Cody Gonzalez DO at OR [facility] Right: Eye JAZMIN 11/12/2025 CNA0T0 / [id number] / documented as of this encounter Procedures Procedure Name Priority Date/Time Associated Diagnosis Comments CBC STAT 01/30/2024 10:20 AM EST Iron deficiency anemia, unspecified iron deficiency anemia type documented in this encounter Results * (ABNORMAL) CBC (01/30/2024 10:20 AM EST) WBC 3.71(L) 4.00 - 10.80 K/uL 01/30/2024 10:33 AM EST LABORATORY [facility] RBC 2.85 4.50 - 5.25 M/uL 01/30/2024 10:33 AM EST LABORATORY [facility] HGB 8.6(L) 14.0 - 16.8 g/dL 01/30/2024 10:33 AM EST LABORATORY [facility] HCT 27.1(L) 40.0 - 48.4 % 01/30/2024 10:33 AM EST LABORATORY [facility] MCV 95.1 82.0 - 99.5 fL 01/30/2024 10:33 AM EST LABORATORY [facility] MCH 30.2 27.0 - 34.0 pg 01/30/2024 10:33 AM EST LABORATORY GL MCHC 31.7 32.0 - 36.0 g/dL 01/30/2024 10:33 AM EST LABORATORY GL RDW 18.2 11.5 - 15.5 % 01/30/2024 10:33 AM EST LABORATORY GL PLT 93(L) 140 - 400 K/uL 01/30/2024 10:33 AM EST LABORATORY GL MPV 11.1 6.6 - 11.1 fL 01/30/2024 10:33 AM EST LABORATORY GL nRBCs 1(H) <=0 /100 WBCs 01/30/2024 10:33 AM EST LABORATORY GL Blood Venous blood specimen / Unknown Venipuncture / Unknown 01/30/2024 10:20 AM EST 01/30/2024 10:20 AM EST Jennifer Ramires MD LAB BLOOD ORDERA BLES LABORATORY [facility] [address] [place] [address] documented in this encounter Visit Diagnoses Diagnosis Iron deficiency anemia, unspecified iron deficiency anemia type Hematuria, gross Gross hematuria documented in this encounter Advance Directives Documents on File Type Date Recorded Patient Submarine Element Coordinator Expl anation Advance Directives and Living Will 12/11/2022 ADVANCE DIRECTIVE / LIVING WILL LIVING WILL Power of Laborer Syrup Machine 12/11/2022 POWER OF A TTORNEY Latest Code Status on File Code Status Date Activated Date Inactivated Comments Full Code 01/30/2024 10:35 AM This orde r reflects the patients wishes and were consensually [...] the patient have Health Care Power of Laborer Syrup Machine? No Full Code 07/22/2014 9:56 PM 07/24/2014 8:18 PM This order reflects the patients wishes and were consensually agreed upon. Question Answer Comments Discussion of Advance Directives occurred with: Patient Does the patient have a Living Will? No Does the patient have Health Care Power of Laborer Syrup Machine? No Care Teams Instructor Bridge Relationship Specialty Start Date End Date Francisco Cisse MD [address] [place] [address] PCP - General Internal Medicine 09/04/21 documented as of this encounter
--- OUTSIDE RECORDS SUMMARY | 2024-02-02 21:32 | External Medical Summary ---
Author Name Unknown Address Unknown Organization : Laboratory Report Ordering Provider Test Date Status CONCEPCIÓN CUENCA 01/30/2024 11:26:53 Final Observation Date Value Abnormality Reference (Units ) Status Glucose Point of Care 01/30/2024 11:26:53 144 Above high normal 70-120 (mg/dL) Final Performing Location
--- OUTSIDE RECORDS SUMMARY | 2024-02-02 21:32 | External Medical Summary ---
Author Name Unknown Address Unknown Organization K1F:LABORATORY [facility] - [address] [place] [address] Laboratory Report Ordering Provider Test Date Status CHELSEY BISWAS 01/30/2024 10:20:46 Final Observation Date Value Abnormality Reference (Units ) Status ABO 01/30/2024 10:20:46 O Final RH 01/30/2024 10:20:46 Positive Final RED BLOOD CELL ANTIBODY SCREEN 01/30/2024 10:20:46 Negative Final SPECIMEN EXPIRATION DATE 01/30/2024 10:20:46 02/02/2024 23:[address] LABORATORY [facility] - [address] [place] [address]
--- OUTSIDE RECORDS SUMMARY | 2024-02-02 21:32 | External Medical Summary | Summary of Care ---
Author Name Unknown Organization [facility] Address [address] [facility] [place] [address] Phone [phone] Care Team Providers Care Supervisor Felting Name Role Phone Francisco Cisse MD Primary Care Provider + Reason for Visit * Reason Onset Date Comments Appointment 01/30/2024 Encounter Details Date Type Department Care Team (Late st Contact Info) Description 01/30/2024 Telephone Urology Lynnette Fitzpatrick [address] [place] [address] Frank Peraza MD [address] [place] [address] Appointment Allergies No known active allergiesdocumented as of this encounter (statuses as of 01/30/2024) Medications Medication Sig Dispensed Refills Start Date End Date Status Cephalexin 500 MG Oral Capsule (Keflex) Take 1 Capsule by mouth in the morning and 1 Capsule at noon and 1 Capsule before bedtime. 6 Capsule 0 01/30/2024 Active traMADol HCl 50 MG Oral Tablet (Ultram) Take 1 Tablet by mouth every 6 hours as needed for Pain, Severe. 10 Tablet 0 01/30/2024 Active Tylenol 325 MG Oral Capsule (Acetaminophen) Take [...] Subcutaneous Solution Pen-injector once. 0 11/13/2023 Suspended amLODIPine Besylate 5 MG Oral Tablet (Norvasc) Take 0.5 Tablets by mouth in the morning. 0 01/27/2024 Suspended documented as of this encounter (statuses as [...] mRNA, LNP-s, No Pre serve, 2-Dose Series (Canara) 03/08/2021,02/15/2021 HepA Inact/HepB Recomb>=18yrs old 12/04/2019,04/2019,05/20/2019 11/19/2019 PPD 06/18/2017, 3,01/09/2012,0306/2011 Pneumococcal Conjugate Vacc, 13 Valent (Prevnar) 05/01/2017 Pneumococcal Polysaccharide PPV23 (Pneumovax) 08/28/2022,10/25/2015,07/14/2012 Season Influenza, Quad, PF, Adjuvanted, 65+ Yrs, IM (FLUAD) 10/07/2020(Deferred: Patient Refused - pt says he already had his shot last [facility] at [facility] and Mckinley Cobian made aware) [...] encounter Miscellaneous Notes * Telephone Encounter - Celine De La Torre OSA - 01/30/2024 4:00 PM EST Spoke to pt's son. They are aware of date/time and location of Saturday's TOV * Telephone Encounter - Chio Cobian OSA - 01/30/2024 3:41 PM EST Same day surgery called to request appt for mendoza cath removal requesting call back to son Alex [phone] to provide info on scheduling date and time * Telephone Encounter - Celine De La Torre OSA - 01/30/2024 3:36 PM EST Tried calling pt, VM was full. Sent my chart message with date/time of TOV appt. * Telephone Encounter - Celine De La Torre OSA - 01/30/2024 3:35 PM EST ----- Message from Frank Peraza MD sent at 01/30/2024 2:05 PM EST ----- Regarding: Trial of void Please schedule patient for trial of void on Saturday. Thanks, HM documented in this encounter Plan of Treatment Upcoming Encounters Date Type Department Care Team (Late st Contact Info) Description 02/03/2024 9:00 AM EST Nurse Only UrologLynnette Solares [address] [place] [address] Lynnette Nurse Urologshelbi Tee RN [address] [place] [address] 02/04/2024 8:40 AM EST Laboratory Lab Mobile Phlebotomy [facility] [address] [place] [address] [facility], Gml Mobile Home Draw [address] [place] [address] 02/07/2024 11:00 AM EST Telemedicine [facility], [place] [address] [place] [address] Aidee Miller PA-C [address] [place] [address] Kriss Mays, Community [facility] Rotary Peel Oven Tender [address] [place] [address] 02/14/2024 2:45 PM EDT Office Visit Lynnette Terry [address] [place] [address] Frank Peraza MD [address] [place] [address] 02/18/2024 8:40 AM EDT Laboratory Lab Mobile Phlebotomy [facility] [address] [place] [address] [facility], Gml Mobile Home Draw [address] [place] [address] 02/24/2024 10:45 AM EDT Imaging Radiology [address] [facility] [place] [address] 03/03/2024 8:40 AM EDT Laboratory Lab Mobile Phlebotomy [facility] [address] [place] [address] [facility], Gml Mobile Home Draw [address] [place] [address] 03/13/2024 2:00 PM EDT Office Visit Dermatology [facility] [address] [place] [address] Francisco Watson MD 200 [facility] [place] [address] 03/17/2024 8:40 AM EDT Laboratory Lab Mobile Phlebotomy [facility] [address] [place] [address] [facility], [facility] Mobile Home Draw [address] [place] [address] 03/24/2024 2:30 PM EDT Office Visit Hematology/Oncology [facility] [address] [place] [address] Ayaka Tatum CRNP [address] [place] [address] [place] [address] 03/30/2024 12:00 PM EDT Office Visit Family Practice [facility] [place] [address] Kristen Vences DO 132 [facility] [place] [address] 03/31/2024 8:40 AM EDT Laboratory Lab Mobile Phlebotomy [facility] [address] [place] [address] [facility], l Mobile Home Draw [address] [place] [address] 04/07/2024 10:00 AM EDT Office Visit Gastroenterology, [facility] [address] [place] [address] Lamar Tatum CRNP [address] [place] [address] 04/14/2024 8:40 AM EDT Laboratory Lab Mobile Phlebotomy [facility] [address] [place] [address] [facility], Gml Mobile Home Draw [address] [place] [address] 04/28/2024 8:40 AM EDT Laboratory Lab Mobile Phlebotomy [facility] [address] [place] [address] [facility]mc, Gml Mobile Home Draw [address] [place] [address] 05/12/2024 8:40 AM EDT Laboratory Lab Mobile Phlebotomy [facility] [address] [place] [address] [facility], Gml Mobile Home Draw [address] [place] [address] 05/26/2024 8:40 AM EDT Laboratory Lab Mobile Phlebotomy [facility] [address] [place] [address] [facility], Gml Mobile Home Draw [address] [place] [address] 06/09/2024 8:40 AM EDT Laboratory Lab Mobile Phlebotomy C [address] [place] [address] [facility], Gml Mobile Home Draw [address] [place] [address] 06/23/2024 8:40 AM EDT Laboratory Lab Mobile Phlebotomy [facility] [address] [place] [address] [facility], Gml Mobile Home Draw [address] [place] [address] 07/07/2024 8:40 AM EDT Laboratory Lab Mobile Phlebotomy [facility] [address] [place] [address] Gmc, Gml Mobile Home Draw [address] [place] [address] 07/21/2024 8:40 AM EDT Laboratory Lab Mobile Phlebotomy [facility] [address] [place] [address] [facility], Gml Mobile Home Draw [address] [place] [address] 08/04/2024 8:40 AM EDT Laboratory Lab Mobile Phlebotomy [facility] [address] [place] [address] [facility]mc, Gml Mobile Home Draw [address] [place] [address] 08/18/2024 8:40 AM EDT Laboratory Lab Mobile Phlebotomy [facility] [address] [place] [address] Gmc, Gml Mobile Home Draw [address] [place] [address] 08/20/2024 10:15 AM EDT Office Visit Ophthalmology, [address] [address] Cody Gonzalez, 21 [place] [address] 09/01/2024 8:40 AM EDT Laboratory Lab Mobile Phlebotomy [facility] [address] [place] [address] Gmc, Gml Mobile Home Draw [address] [place] [address] 09/15/2024 8:40 AM EDT Laboratory Lab Mobile Phlebotomy [facility] [address] [place] [address] [facility], [facility] Mobile Home Draw [address] [place] [address] Scheduled Procedures Name Priority Associated Diagnoses Date/Ti [...] Additional history exists CKD PHOS USE SMARTSET 05431 01/28/202401/03, 07/26/2022, 12/05/2021, Additional history exists Diabetic Foot Exam 03/06/2024 03/06/2023, 0 01/03/2022, 03/02/2021, Additional history exists HbA1c 05/28/2024 11/27/2023, 05/03, 01/28/2023, Additional history exists Albumin/Creatinine Ratio 07/12/2024 023, 10/01/2022, 09/11/2021, Additional history exists GFR 07/24/2024 01/24/2024, 01/02, 12/23/2023, Additional history exists COLONOSCOPY-ANNUAL AGES 18-100 08/09/2024 08/09/2023, 11/07/2022, 11/07/2022, Additional history exists CKD HGB USE SMARTSET 51944 01/29/2025, 01/30/2024, 01/24/2024, Additional history exists Lipid [...] this encounter Medical Devices Implanted Type Area Quality Process Lead Device Identifier Shelf Expiration Date Model / Serial / Lot Clareon Iol Aspheric Hydrophobic Acrylic Iol Implanted:Qty: 1 on 04/23/2023 by Cody Gonzalez DO at OR [facility] Lens Left: Eye 11/12/2025 CNA0T0 / [id number] / Viatorr Tips Endoprosthesis 8-10 Mm X 8cm / 2cm Implanted:Qty: 1 on 10/07/2020 by Go Alvarado MD at [facility] [address] Right: Abdomen 03/03/2023 [id number] / / [id number] Description:Viatorr TIPS End oprosthesis 8-10 mm x 8cm / 2cm, Manufactored by [employer] Syr Pf 2ml Embospheres 100-300 - [id number] Implanted:Qty: 1 on 04/18/2021 by Kevin Lim DO at OR [facility] Left: Abdomen [employer] [id number] 11/25/2023 S220 / / [id number] Lipiodol Injection - [id number] Implanted:Qty: 1 on 03/28/2022 at [facility] [address] [employer] 03/01/2023 63545-84 -2 / [id number] Syr Pf 2ml Embospheres 100-300 - [id number] Implanted:Qty: 1 on 03/28/2022 at [facility] [address] [employer] [id number] 08/31/2024 S220 / / [id number] -5 Clareon Iol Aspheric Hydrophobic Acrylic Iol Implanted:Qty: 1 on 04/02/2023 by Cody Gonzalez DO at OR [facility] Right: Eye JAZMIN 11/12/2025 CNA0T0 / [id number] / documented as of this encounter Advance Directives Documents on File Type Date Recorded 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 No Care Teams Supervisor Felting Relationship Specialty Start Date End Date Francisco Cisse MD 200 [facility] [place] [address] PCP - General Internal Medicine 09/04/21 documented as of this encounter
--- OUTSIDE RECORDS SUMMARY | 2024-02-02 21:32 | External Medical Summary ---
Author Name Unknown Address Unknown Organization : Laboratory Report Ordering Provider Test Date Status CONCEPCIÓN CUENCA 01/30/2024 14:34:59 Final Observation Date Value Abnormality Reference (Units ) Status Glucose Point of Care 01/30/2024 14:34:59 121 Above high normal 70-120 (mg/dL) Final Performing Location
--- OUTSIDE RECORDS SUMMARY | 2024-02-02 21:32 | External Medical Summary | Summary of Care ---
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 Name Role Phone Francisco Cisse MD Primary Care Provider + Reason for Visit * Auth/Cert Specialty Diagnoses / Procedures Referred By Chacho fleming Referred To Contact Diagnoses Hematuria, gross Abnormal cystoscopy Hematuria, gross [R31.0] Abnormal cystoscopy [R39.9] Procedures CYSTOSCOPY/TREAT MED BLADDER TUMOR CYSTOURETHROSCOPY WITH FULGURATION MEDIUM BLADDER TUMOR Referral ID Status Reason Start Date Expiration Date Visits Re quested Visits Authorized [id number] Encounter Details Date Type Department Care Team (Latest Contact Info) Description 01/30/2024 10:27 AM EST - 01/30/2024 4:35 PM EST Hospital Encounter OR [facility], Operating Room, [facility] - 4th Floor [address] [facility] [place] [address] Frank Peraza MD [address] [facility] [address] [place] [address] Pt Handout (on AVS) Discharge Disposition: Home - Self Care Allergies No known active allergiesdocumented as of this encounter (statuses as of 01/31/2024) Medications Medication Sig Dispensed Refills Start Date [...] 180 days 1 Each 1 10/11/2023 Active Additional Information Patient not taking.Reported on 01/30/2024 [...] the morning. 90 Capsule 1 01/02/2024 Active amLODIPine Besylate 5 MG Oral Tablet (Norvasc) Take 0.5 Tablets by mouth in the morning. 0 01/27/2024 Active Cephalexin 500 MG Oral Capsule (Keflex) Take 1 Capsule by mouth in the morning and 1 Capsule at noon and 1 Capsule before bedtime. 6 Capsule 0 01/30/2024 Active traMADol HCl 50 MG Oral Tablet (Ultram) Take 1 Tablet by mouth every 6 hours as needed for Pain, Severe. 10 Tablet 0 01/30/2024 Active DULoxetine HCl 30 MG Oral Capsule Delayed Release Particles (Cymbalta) Take 1 Capsule by mouth in the morning. 30 Capsule 5 09/23/2023 01/01/20 24 Discontinu ed(Refill) documented as of this encounter (statuses as of 01/31/2024) Active Problems Problem Noted Date Diagnosed Date [...] as of this encounter (statuses as of 01/31/2024) Resolved Problems Problem Noted Date Diagnosed Date [...] as of this encounter (statuses as of 01/31/2024) Immunizations Name Administration Dates Next Due COVID-19 mRNA, LNP-s, No Pre serve, 2-Dose Series (Coffee and Power) 03/08/2021,02/15/2021 HepA Inact/HepB Recomb>=18yrs old 12/04/2019,04/2019,05/20/2019 11/19/2019 [...] Sign Reading Time Taken Comments Blood Pressure 128/56 01/30/2024 4:30 PM EST Pulse 70 01/30/2024 4:30 PM EST Temperature 36 C (96.8 F) 01/30/2024 4:30 PM EST Respiratory Rate 16 01/30/2024 4:30 PM EST Oxygen Saturation 94% 01/30/2024 4:30 PM EST Inhaled Oxygen Concentration - - Weight 87.1 kg (192 lb) 01/30/2024 10:50 AM EST Height 170.2 cm (5' 7") 01/30/2024 10:50 AM EST Body Mass Index 30.07 01/30/2024 10:50 AM EST documented in this encounter Functional [...] No 10/07/2020 documented as of this encounter Discharge Instructions * Discharge Instr - AVS* Frank Peraza MD - 01/30/2024 2:00 PM EST Catheter to gravity drainage as instructed. Blood in and around the catheter is expected including the passage of small clots. A burning sensation is not unusual. Follow-up in the office as planned for removal of the catheter. Complete antibiotics as prescribed. Use pain medication as needed. No heavy lifting for 2-3 weeks to avoid bleeding. Contact our office or proceed to ER with any fevers, chills, nausea, vomiting or other worrisome symptoms. Proceed to ER if catheter stops draining or blood clots block catheter. No driving within 24 hours of anesthesia or while taking pain medication. OK to shower with catheter in place starting tomorrow, no tub baths. documented in this encounter Progress Notes * Jean Paul Rodriguez RP - 01/30/2024 2:08 PM EST PHARMACY DISCHARGE MEDICATION RECONCILIATION REVIEW [address] [address] Name: Luis Hale Location: OR [facility]/KS Date: 01/30/2024 Time: 2:08 PM Discharge prescriptions were reviewed by a pharmacist and no corrections or interventions were required. Discharge medication reconciliation record was not available at this time. 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 After examination of this patient, I have determined he is ready for discharge to home when the patient meets criteria. Discharge instructions were given to the patient. documented in this encounter H&P Notes * Frank Peraza MD - 01/30/2024 12:27 PM EST GENERAL HISTORY & PHYSICAL EXAMINATION - Urology Service [address] [place] [address] Name: Luis Hale Location: OR [facility]/OR Date: 01/30/2024 Time: 12:27 PM Date of H&P January 30, 2024. [id number] PCP: FRANCISCO CISSE [address] [place] [address], [place] [address] Luis Hale is a 73 year old male, who presents for cystoscopy, bladder biopsy, fulguration, possible Transurethral resection of bladder tumor. Patient notes transfusion since last being seen, dizziness and lightheadedness. Patient's persistent anemia is noted. He reports persistent hematuria since last being seen. Cystoscopy findings from a couple of months ago are noted. Hemoglobin remained stable on STAT CBC this morning. Prostate Cancer: Diagnosed Nov 2020. Edon 3+3 CAP in every core. High risk decipher score. Eligard started Jan 2021, last injection Jan 2021. [...] Component Value Date/Time PSA - [facility] <0.02 01/17/2024 01:02 PM PSA - [facility] <0.02 12/23/2023 04:24 PM PSA - [facility] <0.02 01/28/2023 09:00 AM PSA - [facility] 10.75 (H) 12/29/2020 01:18 PM PSA - [facility] 15.93 (H) 10/05/2020 10:56 AM PSA - [facility] 15.26 (H) 08/15/2020 10:35 AM PSA SCREENING 4.79 (H) 09/09/2013 04:10 PM PSA SCREENING 3.17 (H) 12/29/2009 07:53 AM Creatinine Results: Lab Results Component Value Date/Time CREATININE - [facility] 1.3 (H) 01/24/2024 03:05 PM CREATININE - [facility] 1.1 01/17/2024 01:02 PM CREATININE - [facility] 1.4 (H) 12/23/2023 04:24 PM CREATININE - [facility] 1.5 (H) 11/30/2020 11:06 AM CREATININE - [facility] 1.4 (H) 11/07/2020 01:07 PM CREATININE - [facility] 1.7 (H) 10/11/2020 01:59 PM CREATININE, RANDOM URINE - [facility] 219 07/12/2023 12:37 PM CREATININE, RANDOM URINE - [facility] 221 10/01/2022 12:56 PM CREATININE, RANDOM URINE - [facility] 133 09/11/2021 01:04 PM CREATININE, RANDOM URINE - [facility] 44 11/30/2020 11:15 AM CREATININE, RANDOM URINE - [facility] 98 11/07/2020 01:07 PM CREATININE, RANDOM URINE - [facility] 158 09/05/2020 03:52 PM CREATININE-OUTSIDE LAB 1.11 07/24/2023 12:00 AM CREATININE-OUTSIDE LAB 1.49 (A) 07/26/2022 12:00 AM CREATININE-OUTSIDE LAB 1.5 (A) 07/19/2020 12:00 AM CBC Results: Results for orders placed or performed in visit on 01/30/24 CBC Result Value Ref Range WBC 3.71 (L) 4.00 - 10.80 K/uL RBC 2.85 4.50 - 5.25 M/uL HGB 8.6 (L) 14.0 - 16.8 g/dL HCT 27.1 (L) 40.0 - 48.4 % MCV 95.1 82.0 - 99.5 fL MCH 30.2 27.0 - 34.0 pg MCHC 31.7 32.0 - 36.0 g/dL RDW 18.2 11.5 - 15.5 % PLT 93 (L) 140 - 400 K/uL MPV 11.1 6.6 - 11.1 fL nRBCs 1 (H) <=0 /100 WBCs @actMED@ Review of patient's allergies indicates: No Known Allergies 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: 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 Tobacco Use Smoking status: Never Smokeless tobacco: Never Substance Use Topics Alcohol use: Not Currently Comment: 1971 - last use Vaping/E-Cigarette Use Vaping/E-Cigarette Use Never User Vaping/E-Cigarette Substances Nicotine No Other No Flavoring No THC No Cannabidiol (CBD) No Vaping/E-Cigarette Devices Disposable No Pre-filled or Refillable Cartridge No Refillable Tank No Family History Problem Relation Age of Onset [...] Heart disease Brother Other (Other) Brother Agent Paradis exposure Cancer Grandmother (Paternal) unkown, in 80s Neurological Disorder Daughter epilepsy No Known Problems Daughter Cervical Cancer Daughter Uterine cancer Daughter Thyroid cancer Daughter Diabetes Other Hypertension Other Heart Disorder Other Stroke Other Past Surgical History: Procedure Laterality Date CATARACT SURGERY,COMPLEX Right 04/02/2023 EXTRACAPSULAR CATARACT REMOVAL COMPLEX WITH IOL performed by Cody Gonzalez DO at OR [facility] CATARACT SURGERY,COMPLEX Left 04/23/2023 LEFT EXTRACAPSULAR CATARACT REMOVAL COMPLEX WITH IOL performed by Cody Gonzalez DO at OR [facility] COLONOSCOPY 08/27/2005 lock haven/hemorrhoids non internal COLONOSCOPY, DIAGNOSTIC (RECTUM) 04/16/2013 COLONOSCOPY FLEXIBLE PROXIMAL DIAGNOSTIC performed by Salvador Lopez MD at ENDOSCOPY [facility], adenomatous polyps repeat colonoscopy in 3 years COLONOSCOPY, DIAGNOSTIC (RECTUM) 05/03/2016 adenomatous polyps, diverticulosis, repeat 5 yrs/COLONOSCOPY FLEXIBLE PROXIMAL DIAGNOSTIC performedby Salvador Lopez MD at ENDOSCOPY [facility] COLONOSCOPY, DIAGNOSTIC (RECTUM) 07/19/2020 adenomatous & hyperplastic polyps, diverticulosis, repeat 3 yrs / [facility] COLONOSCOPY, DIAGNOSTIC (RECTUM) 11/30/2021 mild XRT proctitis, diverticulosis / COLONOSCOPY FLEXIBLE PROXIMAL DIAGNOSTIC performed by Barbara March DO at ENDOSCOPY [facility] COLONOSCOPY, DIAGNOSTIC (RECTUM) 02/01/2022 Mild XRT proctitis / COLONOSCOPY FLEXIBLE PROXIMAL DIAGNOSTIC performed by Barbara March DO at ENDOSCOPY [facility] COLONOSCOPY, DIAGNOSTIC (RECTUM) N/A 11/07/2022 poor prep/diverticulosis sigmoid colon/rectal angioectasias consistent with radiation proctopathy/Colonoscopy/[place] COLONOSCOPY, DIAGNOSTIC (RECTUM) N/A 08/09/2023 poor prep/moderate diverticulosis/hemorrhoids/biopsies show adenomatous and hyperplastic polyps/recall 1 years/Colonoscopy/[place] CT ABDOMEN W IV AND W ORAL CONTRAST 01/10/2010 EGD, FLEXIBLE, DIAGNOSTIC 07/22/2014 GE varices oozing blood, gastric polyp/ESOPHAGOGASTRODUODENOSCOPY (EGD), FLEXIBLE, TRANSORAL, DIAGNOSTIC performed by Juaquin Arrington MD at ENDOSCOPY [facility] EGD, FLEXIBLE, DIAGNOSTIC 07/23/2014 ESOPHAGOGASTRODUODENOSCOPY (EGD), FLEXIBLE, TRANSORAL, DIAGNOSTIC performed by Sophie Merino MD at ENDOSCOPY [facility] EGD, FLEXIBLE, DIAGNOSTIC 06/02/2019 eso & gastric varices, gastric polyps/ESOPHAGOGASTRODUODENOSCOPY (EGD), FLEXIBLE, TRANSORAL, DIAGNOSTIC performed by Salvador Lopez MD at ENDOSCOPY [facility] EGD, FLEXIBLE, DIAGNOSTIC 03/25/2020 portal hypertensive gastropathy, esophageal varices / INPT [facility] EGD, FLEXIBLE, DIAGNOSTIC 07/19/2020 eso varices, portal hypertensive gastropathy, repeat 3 mo / [facility] EGD, FLEXIBLE, DIAGNOSTIC 10/25/2020 Portal hypertensive gastropathy, eso varices / [facility] EGD, FLEXIBLE, DIAGNOSTIC 08/202222 Grade I esophageal varices / [facility] EGD, FLEXIBLE, DIAGNOSTIC N/A 09/11/2022 grade II esophageal varices/gastric antral vascular ectasia, treated with APC/repeat 3 months/EGD/[place] EGD, FLEXIBLE, DIAGNOSTIC N/A 11/07/2022 grade III esophageal varices, banded/gastric antral vascular ectasia/repeat 2 months/EGD/[place] EGD, FLEXIBLE, DIAGNOSTIC N/A 02/01/2023 [facility]< egd. / single G2 varix, banded and varices eradicated / no specimens collected / egd in 1 to 2 months / EGD, FLEXIBLE, DIAGNOSTIC N/A 08/09/2023 portal hypertensive gastropathy/repeat 1 year/EGD/[place] EGD, FLEXIBLE, DIAGNOSTIC 05/22/2023 GAVE, repeat 4-6 wks / [facility] IR CANCER THERASPHERE EMBOLIZATION 03/28/2022 IR EMBOLIZATION Left 04/18/2021 IMAGING SUPERVISION & INTERPRETATION TRANSCATHETER THERAPY, EMBOLIZATION performed by Kevin Lim DO at OR [facility] IR EMBOLIZATION ARTERIAL NON HEMMORHAGE Left 02/21/2022 EMBOLIZATION ARTERIAL; SUPERVISION & INTERPRETATION performed by Kevin Lim DO at OR [facility] IR EMBOLIZATION ARTERIAL NON HEMMORHAGE Left 06/05/2022 EMBOLIZATION ARTERIAL; SUPERVISION & INTERPRETATION performed by Kevin Lim DO at OR [facility] IR VENOUS TIPS 10/07/2020 REMOVAL OF TONSILS, UNDER AGE 12 age 6-7 Tonsils Removal,<12 Y/O SIGMOIDOSCOPY, DIAGNOSTIC 04/12/2022 radiation proctitis, diverticulosis / [facility] TIPS, REVISION N/A 01/24/2021 REVISION TRANSVENOUS INTRAHEPATIC PORTOSYSTEMIC SHUNT performed by Kevin Lim DO at OR [facility] TIPS, REVISION Right 10/19/2022 REVISION TRANSVENOUS INTRAHEPATIC PORTOSYSTEMIC SHUNT performed by Howie Valdovinos MD at OR [facility] TIPS, REVISION Right 02/20/2023 REVISION TRANSVENOUS INTRAHEPATIC PORTOSYSTEMIC SHUNT performed by Kevin Lim DO at OR [facility] Past Medical History: Diagnosis Date Acquired thrombocytopenia (HCC) 09/05/2017 Allergic rhinitis Anemia 12/2023 required transfusion Anxiety and depression Aortic valve sclerosis 02/01/2023 Benign neoplasm of colon 04/16/2013 COLONOSCOPY FLEXIBLE PROXIMAL DIAGNOSTIC performed by Salvador Lopez MD at ENDOSCOPY [facility], adenomatous polyps repeat colonoscopy in 3 year Cirrhosis of liver (HCC) Closed compression fracture of body of L1 [...] malnutrition (HCC) E46 Prostate cancer (HCC) C61 Abnormal cystoscopy R39.9 Hematuria, gross R31.0 Constitutional: (+) weakness, (+) fatigue, and (-) fever Eyes: (+) corrective lenses Cardiovascular: (-) chest pain Male : see HPI Musculoskeletal: (+) muscle weakness Neurology: (+) loss of balance and (+) generalized weakness Physical Exam Nursing note reviewed. Constitutional: Appearance: He is normal weight. He is ill-appearing (fatigued). He is not toxic-appearing. HENT: Head: Normocephalic and atraumatic. Right Ear: External ear normal. Left Ear: External ear normal. Nose: Nose normal. Mouth/Throat: Mouth: Mucous membranes are moist. Eyes: Extraocular Movements: Extraocular movements intact. Cardiovascular: Pulses: Normal pulses. Pulmonary: Breath sounds: Rales (mild) present. Abdominal: General: There is no distension. Palpations: Abdomen is soft. Musculoskeletal: Cervical back: Normal range of motion. Skin: Coloration: Skin is pale (mild pallor). Neurological: General: No focal deficit present. Mental Status: He is alert and oriented to person, place, and time. Motor: Weakness present. Psychiatric: Mood and Affect: Mood normal. Behavior: Behavior normal. Thought Content: Thought content normal. Impression/Plan: 73-year-old male with persistent gross hematuria, history of prostate cancer status post external beam radiation therapy. Will proceed with cystoscopy, bladder biopsy, fulguration Possible Transurethral resection of bladder tumor as previously discussed. Risks and benefits reviewed. Informed consent was present in the chart. IV Ancef on-call for antibiotic coverage, SCDs for DVT prophylaxis. Risks and benefits reviewed. Patient wishes to proceed. Above content is personally reviewed. Frank Peraza MD 12:27 PM 01/30/2024 documented in this encounter Nursing Notes * Michelle Milner RN - 01/30/2024 4:32 PM EST [address] [address] SameDay Surgery Discharge Note Name: Luis Hale Date: 01/30/2024 Time: 4:32 PM Discharge Disposition: Home Responsible adult as escort home: yes Transport Mode: Wheelchair Accompanied by: Arlene Milner RN To: Car Belongings with patient: Yes Patient meets criteria to be transferred or discharged. * Michelle Milner RN - 01/30/2024 3:20 PM EST Post Anesthesia Care Unit Discharge Note [address] [address] Dept. Luis Hale Vital Signs Stable Discharged from PACU as per discharge criteria (see discharge criteria sheet). Time: 1520 Reported to: chris Taken to In/ Out Surgery, accompanied by Arlene Milner RN. Transported via: Stretcher Belongings with Patient: Not Applicable Prescriptions on Chart: Yes Patient meets criteria to be transferred or discharged * Michelle Milner RN - 01/30/2024 3:05 PM EST 1500- Patient arouses to voice but unable to stay awake. Denies pain. 1545- Patient alert and talking. Eating snack. Mendoza cath care instructions and leg bag care given to son who verbalized understanding. Demonstrated to son how to change mendoza overnight bag and leg bag. Verbalized understanding. * Mleody Olson RN - 01/20/2024 8:55 AM EST Spoke with patient's son Alex. Reviewed patient's medications and medication instructions give. - If normal morning routine take omeprazole and duloxetine the morning of surgery. Alex verbalized understanding of instructions and states he will adjust Luis's pill box appropriately for day of surgery. L * Melody Olson RN - 01/13/2024 8:59 AM EST Left message on mobile phone for return call @ [phone] by pt's son Alex to review patient's medications at least one week prior to surgery date or to leave a number where they can be reached . Instructed clinic open hours are M-F 8:00a- 4:00p. L * Melody Olson RN - 12/31/2023 10:26 AM EST Patient identified by: name/birthdate Person taught: Patient Optime case procedure confirmed with surgical consent Laterality confirmed as N/a Surgery date at time of Pre-Surgery Center Encounter: 01/30/2024 What procedure is patient having? Cystourethroscopy; Bladder Biopsy; Fulguration and Possible Transurethral Resection of Bladder Tumor In an emergency, is patient willing to accept blood products or blood transfusion? unknown Do you need to place a blood bank order? No Anesthesia consent pool notified? N/A Anesthesia evaluation requested per case documentation? No Preop Evaluation Requested? No PATIENT EDUCATION SCREENING Person taught: Patient Motivation Level: Asks Questions and Eager to Learn Language Barrier: No Physical Barrier: N/A METHOD: Lecture-telephone interview Patient Preferred Learning Methods: Lecture-Telephone interview Health History interview completed, questions answered, and the following patient instructions provided via telephone interview: Preoperative bathing instructions General preoperative instructions NPO instructions Pt is unsure of his medications and requested I call his son Alex at work # [phone] to review. Spoke with Alex and he states he will call back later this week to review meds and receive instructions. OUTCOME: State / Describe / Explain and Needs Reinforcement documented in this encounter OR Notes * OR Surgeon - Frank Peraza MD - 01/30/2024 2:07 PM EST [facility]-[address] [address] OPERATIVE REPORT Name: Luis Hale Date: 01/30/2024 Time: 2:07 PM Location: OR [facility] Service: Urology Date of Operation: 01/30/2024 Pre-op Diagnosis: Gross hematuria, abnormal cystoscopy Post-op Diagnosis: Median lobe of prostate, apparent radiation cystitis at bladder neck without yannick tumor Surgeon: Frank Peraza MD Assistants: None Anesthesia: General endotracheal anesthesia Operation: Transurethral resection of median lobe of prostate, bladder neck TUR biopsy, fulguration. Findings: Tortuous bladder neck vessels consistent with radiation cystitis, vascularized median lobe with obstruction at bladder neck resected and fulgurated. Ureteral orifices free of involvement. Case Acuity: Elective Wound Class: Clean Contaminated Infection Present at the Time of Surgery: No Surgical Clean Closure Bundle Used: N/A (non-GI case) Irrigation of the Fascia / Subcutaneous Space: N/A Irrigation of the Organ Space: N/A Open abdomen with wound VAC: N/A Specimen and Disposition: Prostate chips, bladder neck TUR biopsy Estimated Blood Loss: 5 mL mL Fluids: Less than 1 L of crystalloid mL Urine Output: Not measured mL Drains/Implants: 20 Trinidadian Mendoza catheter with 10 mL of sterile water in the balloon Complications: none Postoperative Condition: stable Indications and History: Patient is a 73-year-old comorbid male with a history of persistent gross hematuria found to have abnormal tissue at the bladder neck at the time of office cystoscopy. Findings were felt to be consistent with radiation cystitis versus possible early urothelial malignancy. Patient is here today for biopsy of the areas and fulguration of his bladder. Patient continues to have difficulties with hematuria. Please see H&P and outpatient notes for further details. IV Ancef provided for antibioticcoverage, SCDs for DVT prophylaxis. Informed consent reviewed preoperatively today. Description of Operation: Patient was appropriately identified and brought into the operative suite after identification of appropriate consent in the chart. General anesthesia with endotracheal intubation was initiated secondary to history of nausea and ascites. bone process operator-out procedure was followed. Twenty-six Trinidadian rigid resectoscope was introduced into the bladder under direct visualization. This demonstrated a normalurethra, blanched prostatic tissue with minimal lateral lobe hypertrophy. However, a vascularized median lobe with friable vessels was noted to be obstructive at the level of the bladder neck. Bladder was entered and hematuria was appreciated. Bladder was flushed & a gentle ooze was appreciatedfrom tortuous vessels at the bladder neck. These were felt to be consistent with inflamed vessels from radiation cystitis. Bilateral ureteral orifices were identified and noted to be effluxing dark yellow urine. No papillary tumors or clear mucosal abnormalities worrisome for urothelial malignancy were appreciated. Bipolar loop was used to resect the patient's median lobe until flush with the trigone. Tissue fragments were irrigated free and sent as prostate chips with improved hemostasis. Field Software Engineer areas of abnormal tissue at the bladder neck were sampled using bipolar loop. Bipolar button was then used for generous fulguration of bleeding vessels in the prostatic fossa, bladder neck and at the site of resection. No evidence of bladder perforation or other abnormalities were appreciated. No residual tissue was appreciated to be within the bladder. Grade 2-3 trabeculation with early cellules distended resectoscope were noted. Excellent hemostasis was appreciated after completion of fulguration. Bladder was partially distended resectoscope was removed. Twenty Trinidadian latex Mendoza catheter was introduced with return of clear irrigant. 10 mL of sterile water were placed in the balloon catheter was placed to gravity drainage. Anesthesia was reversed and patient was transferred tothe recovery room in stable condition. Follow-up care: Patient will be discharged home with Mendoza catheter in place. Will arrange for outpatient trial of void in a few days' time. Prescription for Keflex and tramadol provided postoperative antibiotic coverage and pain control. Patient is instructed to contact our service with any fevers, chills, nausea vomiting or other difficulties in the postoperative period. Outpatient pathology review is confirmed. documented in this encounter Miscellaneous Notes * Pt Handout (on AVS) - Michelle Milner RN - 01/30/2024 2:44 PM EST Images from the original note were not included. [id number] Discharge Instructions: Caring for Your Leg Bag You are going home with a urinary catheter and collection device (drainage bag) in place. One type of collection device is called a leg bag. This is a smaller drainage bag that you can wear on your leg to collect urine during the day. The bag can fit under your clothing. You can move around with greater ease when using a leg bag instead of a larger collection bag. You were shown how to care for your catheter in the hospital. This sheet will help you remember those steps when you are at home. Home care Wash your hands thoroughly before and after you care for your catheter or collection device. Gather your supplies: o Alcohol wipes o Soap and water o Towel and washcloth o Leg strap and leg bag Use soap and water to wash the area where your catheter enters your body. Rinse well. Secure the bag garcia to your leg: o Put the leg band high on your thigh with the product label pointing away from your leg. o Stretch the leg band in place and fasten. o Place the catheter tubing over the bag and secure it. You may secure it with a Velcro tab or other method, depending on the product you use. Be sure to leave enough loop in the catheter above the leg band so you won't pull on the tube. o Every 4 to 6 hours, reposition the band. This will prevent pressure from the elastic on your leg.You can do this by changing the bag to the other leg or by raising or lowering the leg band. o Wash the band as often as needed. You can hand wash and dry the leg band. Place the bag in the bag garcia. Clean the urine bag end of the catheter and your catheter port with an alcohol wipe. Place a towel under the bag and port to keep urine from dripping onto your leg. Before connecting the outlet valve at the bottom of the bag to the catheter, make sure that it is firmly closed. Flip the valve up toward the bag. It needs to snap firmly in place. Don't tug on the tubing. Be gentle. Attach the urine bag to the end of the catheter. Insert the connector snugly into the catheter port. You can prevent dribbling urine by bending the catheter tubing just below the tip and holding it while you disconnect it from the catheter. Be careful to keep the tip clean while connecting the leg bag tubing to the catheter. This keeps germs from getting into the system. Drain the bag when it's full. To drain the bag, flip the clamp downward. Direct the flexible outlet tube to control the flow of urine. You don?t have to disconnect the leg bag from the catheter toempty it. Raise your leg up to the edge of the toilet to reach the leg bag. Then you can empty the bag directly into the toilet. This way, you won?t need to bend over, which may be uncomfortable. Keep the leg bag clean. Your healthcare provider may advise that you use a certain solution to clean the bag. Solutions that may be advised include: o 2 parts vinegar and 3 parts water o 1 tablespoon of chlorine bleach mixed with a half cup of water Ask your healthcare provider how often you should clean your bag and what solution you should use ?to reduce odor and keep the bag free of germs. Shake the solution a bit and allow it to remain in the bag for 30 minutes. Drain the solution and rinse the bag with cold tap water. Hang the bag to drain and air dry. Remember to keep the drainage bag below the level of your bladder for correct drainage. Follow-up Make a follow-up appointment as directed by your healthcare provider. When to call your healthcare provider Call your healthcare provider right away if you have any of the following: Redness, swelling, or warmth around the catheter entry site Pus draining from your catheter entry site or into the catheter tubing and bag Blood, clots, or floating debris in the urine Nausea and vomiting Shaking chills Fever above 100.4F ( 38C), or as directed by your healthcare provider Pain that is not eased by medicine Catheter that falls out or is dislodged Last Reviewed Date: 01/30/202219996754-7322 The [employer]. All rights reserved. This information is not intended as a substitute for professional medical care. Always follow your healthcare professional's instructions. * Pt Handout (on AVS) - Michelle Milner RN - 01/30/2024 2:44 PM EST Images from the original note were not included. [id number] Discharge Instructions: Caring for Your Indwelling Urinary Catheter You have been discharged with an indwelling urinary catheter. It's also called a Mendoza catheter. A catheter is a thin, flexible tube. An indwelling urinary catheter has 2 parts. The first part is a tube that drains urine from your bladder. The second part is a bag or other device that collects the urine. The most important thing to remember is that you want to prevent infection. Always wash your hands before handling your catheter bag or tubing. Draining the bedside bag Wash your hands with soap and clean, running water. Or use an alcohol-based hand news clerk that contains at least 60% alcohol. Hold the drainage tube over a toilet or measuring container. Unclamp the tube and let the bag drain. Don?t touch the tip of the drainage tube or let it touch the toilet or container. You don't need to rinse the bag or drainage tube. Cleaning the drainage tube When the bag is empty, clean the tip of the drainage tube with an alcohol wipe. Clamp the tube. Reinsert the tube into the pocket on the drainage bag. Cleaning your skin and tubing Clean the skin near the catheter with soap and water. Wash your genital area from front to back. Wash the catheter tubing. Always wash the catheter in the direction away from your body. You will be told when and how to change your bag and tubing. Don?t try to remove the catheter by yourself. You may shower with the catheter in place. Emptying a leg bag Wash your hands. Remove the stopper on the bag. Drain the bag into the toilet or a measuring container. Don?t let the tip of the drainage tube touch anything, including your fingers. Clean the tip of the drainage tube with alcohol. Replace the stopper. Follow-up care Make a follow-up appointment, or as directed by your healthcare provider. When to call your healthcare provider Call your healthcare provider right away if you have any of the following: Fever of 100.4F ( 38C) or higher, or as directed by your provider Chills Leakage around the catheter insertion site Increased spasms (uncontrollable twitching) in your legs, belly (abdomen), or bladder. Occasional mild spasms are normal. Burning in the urinary tract, penis, or genital area Nausea and vomiting Aching in the lower back Cloudy or bloody (pink or red) urine, sediment or mucus in the urine, or bad- smelling urine Last Reviewed Date: 08/02/202219999313-5185 [employer]. All rights reserved. This information is not intended as a substitute for professional medical care. Always follow your healthcare professional's instructions. * Pt Handout (on AVS) - Michelle Milner RN - 01/30/2024 2:44 PM EST Images from the original note were not included. [id number] Mendoza Catheter Care A Mendoza catheter is a rubber tube that is placed through the urethra and into the bladder. The urethra is the opening where urine comes out. The catheter helps drain urine from the bladder. There is a small balloon on the end of the tube that is inflated after the catheter is put in place. This keeps the catheter from sliding out of the bladder. A Mendoza catheter is used when you are unable to pass urine (urinary retention). It's also used whenthere is loss of bladder control (incontinence). It's also used after bladder or prostate surgery. Home care Finish taking any prescribed antibiotic medicine even if you are feeling better before then. It's important to keep bacteria from getting into the collection bag. Don't disconnect the catheter from the collection bag. Use a leg band to secure the drainage tube, so it doesn't pull on the catheter. Don't try to pull or remove your catheter. This will injure your urethra. It must be removed by your healthcare provider or nurse. Drain the collection bag when it becomes full using the drain spout at the bottom of the bag. Follow-up care Follow up with your healthcare provider, or as advised. This is for repeat urine testing and for catheter removal or replacement. When to seek medical advice Call your healthcare provider right away if any of these occur: Fever of 100.4F (38C) or higher, or as directed by your healthcare provider Bladder pain or fullness Abdominal swelling, nausea or vomiting, or back pain Blood or urine leakage around the catheter Bloody urine coming from the catheter (if a new symptom) Catheter falls out Catheter stops draining for 6 hours Weakness, dizziness, or fainting Last Reviewed Date: 12/02/202119999904-7426 [employer]. All rights reserved. This information is not intended as a substitute for professional medical care. Always follow your healthcare professional's instructions. documented in this encounter Plan of Treatment Upcoming Encounters Date Type Department Care Team (Late st Contact Info) Description 02/03/2024 9:00 AM EST Nurse Only Urology Lynnette Fitzpatrick [address] [address] Nurse Lynnette Urologshelbi Tee RN [address] [address] 02/04/2024 8:40 AM EST Laboratory Lab Mobile Phlebotomy [facility] [address] [place] [facility] [place] [address] [facility], [facility] Mobile Home Draw [address] [place] [address] 02/07/2024 11:00 AM EST Telemedicine [facility] [place] [address] [place] [address] Aidee Miller PA-C [address] [place] [address] Kriss Mays, [facility] [address] [place] [address] 02/14/2024 2:45 PM EDT Office Visit UrologLynnette Solares [address] [place] [address] rFank Peraza MD [address] [place] [address] 02/18/2024 8:40 AM EDT Laboratory Lab Mobile Phlebotomy [facility] [address] [place] [address] [facility], [facility] Mobile Home Draw [address] [place] [address] 02/24/2024 10:45 AM EDT Imaging Radiology [address] [address] 03/03/2024 8:40 AM EDT Laboratory Lab Mobile Phlebotomy [facility] [address] [place] [address] [facility], [facility] Mobile Home Draw [address] [place] [address] 03/13/2024 2:00 PM EDT Office Visit Dermatology [facility] [address] [facility] [place] [address] Francisco Watson MD [address] [facility] [place] [address] 03/17/2024 8:40 AM EDT Laboratory Lab Mobile Phlebotomy [facility] [address] [place] [address] [facility], [facility] Mobile Home Draw [address] [place] [address] 03/24/2024 2:30 PM EDT Office Visit Hematology/Oncology [facility] [address] [place] [address] Ayaka Tatum CRNP [address] [place] [address] 03/30/2024 12:00 PM EDT Office Visit Family Practice [facility] [address] [place] [address] Kristen Vences DO [address] [place] [address] 03/31/2024 8:40 AM EDT Laboratory Lab Mobile Phlebotomy [facility] [address] [place] [address] [facility], [facility] Mobile Home Draw [address] [place] [address] 04/07/2024 10:00 AM EDT Office Visit Gastroenterology, [facility] 132 [facility] [place] [address] Lamar Tatum CRNP [address] [place] [address] 04/14/2024 8:40 AM EDT Laboratory Lab Mobile Phlebotomy [facility] [address] [place] [address] [facility], [facility] Mobile Home Draw [address] [place] [address] 04/28/2024 8:40 AM EDT Laboratory Lab Mobile Phle[facility] [address] [place] [address] [facility] Mobile Home Draw [address] [place] [address] 05/12/2024 8:40 AM EDT Laboratory Lab Mobile Phlebotomy [facility] [address] [place] [address] [facility] Draw [address] [place] [address] 05/26/2024 8:40 AM EDT Laboratory Lab Mobile Phlebot[facility] [address] [place] [address] [facility] Draw [address] [place] [address] 06/09/2024 8:40 AM EDT Laboratory Lab Mobile Phle[facility] [address] [place] [address] [facility] [address] [place] [address] 06/23/2024 8:40 AM EDT Laboratory Lab Mobile Phle[facility] [address] [place] [address] [facility] [address] [place] [address] 07/07/2024 8:40 AM EDT Laboratory Lab Mobile Phle[facility] [address] [place] [address] [facility] [address] [place] [address] 07/21/2024 8:40 AM EDT Laboratory Lab Mobile Phlebot[facility] [address] [place] [address] [facility] Draw [address] [place] [address] 08/04/2024 8:40 AM EDT Laboratory Lab Mobile Phlebotomy [facility] [address] [place] [address] [facility], [facility] Mobile Home Draw [address] [place] [address] 08/18/2024 8:40 AM EDT Laboratory Lab Mobile Phlebotomy [facility] [address] [place] [address] [facility], [facility] Mobile Home Draw [address] [place] [address] 08/20/2024 10:15 AM EDT Office Visit Ophthalmology, [address] [address] Cody Gonzalez, DO [address] [place] [address] 09/01/2024 8:40 AM EDT Laboratory Lab Mobile Phlebotomy [facility] [address] [place] [address] [facility], [facility] Mobile Home Draw [address] [place] [address] 09/15/2024 8:40 AM EDT Laboratory Lab Mobile Phlebotomy [facility] [address] [place] [address] [facility], [facility] Mobile Home Draw [address] [place] [address] Pending Results Name Type Priority Associated Diagnoses Date /Time SURGICAL PATHOLOGY Pathology Routine Hematuria, gross Abnormal cystoscopy 01/30/2024 1:27 PM EST Scheduled Orders Name Type Priority Associated Diagnoses Orde r Schedule SURGICAL PATHOLOGY Pathology Routine Hematuria, gross Abnormal cystoscopy Release Upon Ordering for 1 Occurrences starting 01/30/2024, 1 completed Scheduled Procedures Name Priority Associated Diagnoses Date/Ti [...] Additional history exists CKD PHOS USE SMARTSET 22306 01/28/202401/03, 07/26/2022, 12/05/2021, Additional history exists Diabetic Foot Exam 03/06/2024 03/06/2023, 0 01/03/2022, 03/02/2021, Additional history exists HbA1c 05/28/2024 11/27/2023, 05/03, 01/28/2023, Additional history exists Albumin/Creatinine Ratio 07/12/2024 023, 10/01/2022, 09/11/2021, Additional history exists GFR 07/24/2024 01/24/2024, 01/02, 12/23/2023, Additional history exists COLONOSCOPY-ANNUAL AGES 18-100 08/09/2024 08/09/2023, 11/07/2022, 11/07/2022, Additional history exists CKD HGB USE SMARTSET 43265 01/29/2025, 01/30/2024, 01/24/2024, Additional history exists Lipid [...] this encounter Medical Devices Implanted Type Area Rodeo Performer Device Identifier Shelf Expiration Date Model / Serial / Lot Clareon Iol Aspheric Hydrophobic Acrylic Iol Implanted:Qty: 1 on 04/23/2023 by Cody Gonzalez DO at OR [facility] Lens Left: Eye 11/12/2025 [id number] / [id number] / Viatorr Tips Endoprosthesis 8-10 Mm X 8cm / 2cm Implanted:Qty: 1 on 10/07/2020 by Go Alvarado MD at [facility] Right: Abdomen 03/03/2023 [id number] / / [id number] Description:Viatorr TIPS End oprosthesis 8-10 mm x 8cm / 2cm, Manufactored by [employer] Syr Pf 2ml Embospheres 100-300 - [id number] Implanted:Qty: 1 on 04/18/2021 by Kevin Lim DO at OR [facility] Left: Abdomen [employer] [id number] 11/25/2023 S220GH / / [id number] Lipiodol Injection - [id number] Implanted:Qty: 1 on 03/28/[address] [facility] [employer] 03/01/2023 [id number] 01-2 / / [id number] Syr Pf 2ml Embospheres 100-300 - [id number] Implanted:Qty: 1 on 03/28/[address] [facility] [employer] [id number] 08/31/2024 S220GH / / [id number] -[id number] Clareon Iol Aspheric Hydrophobic Acrylic Iol Implanted:Qty: 1 on 04/02/2023 by Cody Gonzalez DO at OR [facility] Right: Eye JAZMIN 11/12/2025 CNA0T0 / [id number] / documented as of this encounter Procedures Procedure Name Priority Date/Time Associated Diagnosis Comments GLUCOSE METER, POINT OF CARE [facility] 01/30/2024 2:34 PM EST GLUCOSE METER, POINT OF CARE [facility] 01/30/2024 11:26 AM EST documented in this encounter Results * (ABNORMAL) GLUCOSE METER, POINT OF CARE (01/30/2024 2:34 PM EST) Glucose Meter 121(H) 70 - 120 mg/dL 01/30/2024 2:43 PM EST [facility] Blood Whole blood specimen / Unknown 01/30/2024 2:34 PM EST 01/30/2024 2:43 PM EST Frank Peraza MD LAB POINT OF CAR E TEST DOCKED DEVICE UNSOLICITED RESULTS Performing Organization Address City/[facility]/ZIP Co de Phone Number [facility] [address] [place] [address] * (ABNORMAL) GLUCOSE METER, POINT OF CARE (01/30/2024 11:26 AM EST) Glucose Meter 144(H) 70 - 120 mg/dL 01/30/2024 11:29 AM EST [facility] Blood Whole blood specimen / Unknown 01/30/2024 11:26 AM EST 01/30/2024 11:29 AM EST Frank Peraza MD LAB POINT OF CAR E TEST DOCKED DEVICE UNSOLICITED RESULTS Performing Organization Address City/[facility]/ZIP Co de Phone Number [facility] [address] [place] [address] documented in this encounter Visit Diagnoses Diagnosis Hematuria, gross- Primary Gross hematuria Prostate cancer (HCC) Malignant neoplasm of prostate Abnormal cystoscopy Other nonspecific abnormal finding documented in this encounter Administered Medications Inactive Administered Medications - up to 3 most recent administrations Medication Order MAR Action Action Date Dose Rate Site isolyte-S pH 7.4 infusion Intravenous, Plasma-LYTE 148, isolyte-S, and isolyte-S pH 7.4 are considered equivalent - including for MAR barcode scanning., CONTINUOUS, Starting on Sharon 01/30/24 at 1115, Until Sharon 01/30/24 at 203, Pre-Op Restarted 01/30/2024 1:25 PM EST Continue from Pre-Op 01/30/2024 1:02 PM EST 10 mL/hr New Bag 01/30/2024 11:31 AM EST 1,000 mL 10 mL/hr oxyCODONE (Oxy IR) tab 5 mg 5 mg, Oral, Q4H PRN Pain, Moderate, Starting on Sharon 01/30/24 at 1406, Until Sharon 01/30/24 at 2034, Post-op Given 01/30/2024 4:00 PM EST 5 mg documented in this encounter Active and Recently Administered Medications Times are shown in EST. Scheduled Medication Order 01/28/2024 01/29/2024 01/30/2024 ceFAZolin in dextrose (Ancef) ivpb 2 g (COMPLETED) 2 g, IV Piggyback, PREOP, 1 dose, First dose on Sharon 01/30/24 at 1115, Administer 60 minutes prior to skin incision, Pre-Op 1304 (Given - Provid er: Marina Coronel CRNA) Continuous Medication Order 01/28/2024 01/29/2024 01/30/2024 isolyte-S pH 7.4 infusion Intravenous, Plasma-LYTE 148, isolyte-S, and isolyte-S pH 7.4 are considered equivalent - including for MAR barcode scanning., CONTINUOUS, Starting on Sharon 01/30/24 at 1115, Until Sharon 01/30/24 at 2034, Pre-Op 1131 (New Bag - Prov ider: Michelle Milner RN)1302 (Continue from Pre-Op - Provider: Marina Coronel CRNA)1324 (Paused - Provider: Marina Coronel CRNA - Comment: Switch to gravity)1325 (Restarted - Provider: Marina Coronel CRNA)1338 (Anes Intra-Op Fluid - Provider: Maura Yip CRNA) isolyte-S pH 7.4 infusion Intravenous, at 100 mL/hr, For Periop use. 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
--- OUTSIDE RECORDS SUMMARY | 2024-02-02 21:33 | External Medical Summary | Summary of Care ---
Author Name Unknown Organization [facility] Address [address] [place] [address] Phone [phone] Care Team Providers Care Wood Pile Driver Operator Name Role Phone Francisco Cisse MD Primary Care Provider + Reason for Visit * Reason Onset Date Comments Appointment 01/23/2024 IR Encounter Details Date Type Department Care Team (Late st Contact Info) Description 01/23/2024 Telephone Interventional Radiology [facility] [place] 1st Floor [address] [place] [address] ADDRESS AVAILABLE Appointment (IR) Allergies No known active allergiesdocumented as of this encounter (statuses as of 01/27/2024) Medications Medication Sig Dispensed Refills Start Date End Date Status Tylenol 325 MG Oral Capsule (Acetaminophen) Take 650 mg by mouth every 8 hours as needed for Pain (fever). 0 Active Channel BreezeTouch Verio In Vitro Strip (Glucose Blood)Indications:Ty pe [...] as of this encounter (statuses as of 01/27/2024) Active Problems Problem Noted Date Diagnosed Date [...] as of this encounter (statuses as of 01/27/2024) Resolved Problems Problem Noted Date Diagnosed Date [...] as of this encounter (statuses as of 01/27/2024) Immunizations Name Administration Dates Next Due COVID-19 mRNA, LNP-s, No Pre serve, 2-Dose Series (Relead) 03/08/2021,02/15/2021 HepA Inact/HepB Recomb>=18yrs old 12/04/2019,04/2019,05/20/2019 11/19/2019 [...] Department Care Team (Latest Contact Info) Description 01/29/2024 10:30 AM EST Hem/Onc Treatment Hematology/Oncolo gy Treatment, [place] [address] [place] [phone] Pattie, Chair 11 Hem Onc [facility] 200 [facility] [place] [address] 01/30/2024 10:20 AM EST Office Visit General Internal Medicine [facility] [place] [address] [facility] [place] [address] Shelbie Ayers MD 200 [facility] [place] [address] 01/30/2024 12:42 PM EST Hospital Encounter OR [facility], Operating Room, [facility] - 4th Floor [address] [place] [address] Frank Peraza MD [address] [place] [address] 01/30/2024 12:42 PM EST - 01/30/2024 1:44 PM EST Surgery OR [facility], Operating Room, [facility] - 4th Floor [address] [address] Frank Peraza MD [address] [place] [address] CYSTOURETHROSCOPY WITH FULGURATION MEDIUM BLADDER TUMOR 02/04/2024 8:40 AM EST [facility] [place] [facility] [address] [place] [address] [facility] [place] [place] [facility] [place] Draw [address] [place] [address] 02/07/2024 11:00 AM EST Telemedicine [facility], [place] [address] [place] [address] Aidee Miller PA-C [address] [place], [place] [phone] Kriss Mays, [facility] Senior Recruitment Consultant [address] [place] [address] 02/14/2024 2:45 PM EDT Office Visit Urology Lynnette Fitzpatrick [address] [place] [address] Frank Peraza MD [address] [place] [address] 02/18/2024 8:40 AM EDT [facility] [place] Ph[place] [facility] [address] [place] [address] [facility] [place] [place] [facility] [place] Draw [address] [place] [address] 02/24/2024 10:45 AM EDT Imaging Radiology [address] [place] [address] 03/03/2024 8:40 AM EDT [facility] [place] Ph[place] [facility] [address] [place] [address] [facility] [place] [place] [facility] [place] Draw [address] [place] [address] 03/13/2024 2:00 PM EDT Office Visit Dermatology [facility] [address] [place] [address] Francisco Watson MD [address] [place] [address] 03/17/2024 8:40 AM EDT [facility] [place] [facility] [address] [place] [address] [facility] [place] [place] [facility] [place] Draw [address] [place] [address] 03/24/2024 2:30 PM EDT Office Visit Hematology/Oncolo gy [facility] Pattie [place] 200 [facility] [place] [address] Ayaka Tatum CRNP [address] [place] [address] 03/30/2024 12:00 PM EDT Office Visit Family Practice [facility] [address] [place] [address] Kristen Vences DO [address] [place] [address] 03/31/2024 8:40 AM EDT [facility] [place] Phle[place] [facility] [address] [place] [address] [facility] [place] [place] [facility] [place] [facility] Draw [address] [place] [address] 04/07/2024 10:00 AM EDT Office Visit Gastroenterology, [facility] [address] [place] [address] Lamar Tatum CRNP [address] [place] [address] 04/14/2024 8:40 AM EDT [facility] [place] Ph[place] [facility] [address] [place] [address] [facility] [place] [place] [facility] [place] [facility] Draw [address] [place] [address] 04/28/2024 8:40 AM EDT [facility] [place] [facility] [address] [place] [address] [facility] [place] [facility] Draw [address] [place] [address] 05/12/2024 8:40 AM EDT [facility] [place] Phle[facility] [address] [place] [address] [facility] [place] [facility] [address] [place] [address] 05/26/2024 8:40 AM EDT [facility] [place] Phle[facility] [address] [place] [address] [facility] [place] [facility] [address] [place] [address] 06/09/2024 8:40 AM EDT [facility] [place] Phle[facility] [address] [place] [address] [facility] [place] [facility] [address] [place] [address] 06/23/2024 8:40 AM EDT [facility] [place] [facility] [address] [place] [address] [facility] [place] [facility] [address] [place] [address] 07/07/2024 8:40 AM EDT [facility] [place] Ph[facility] [address] [place] [address] [facility] [place] [facility] [address] [place] [address] 07/21/2024 8:40 AM EDT [facility] [place] Ph[facility] [address] [place] [address] [facility] [place] [address] [place] [address] 08/04/2024 8:40 AM EDT [facility] [place] [facility] [address] [place] [address] [facility] [place] [place] [facility] [place] Draw [address] [place] [address] 08/18/2024 8:40 AM EDT [facility] [place] [facility] [address] [place] [address] [facility] [place] [place] [facility] [place] Draw [address] [place] [address] 08/20/2024 10:15 AM EDT Office Visit Ophthalmology, [address] [id number] Cody Gonzalez DO [address] [place] [address] 09/01/2024 8:40 AM EDT [facility] [place] Phle[place] [facility] [address] [place] [address] [facility] [place] [place] [facility] [place] Draw [address] [place] [address] 09/15/2024 8:40 AM EDT [facility] [place] Ph[place] [facility] [address] [place] [address] [facility] [place] [place] [facility] [place] Draw [address] [place] [address] Scheduled Procedures Name Priority Associated Diagnoses Date/Ti [...] Additional history exists CKD PHOS USE SMARTSET 66086 01/28/202401/03, 07/26/2022, 12/05/2021, Additional history exists Diabetic Foot Exam 03/06/2024 03/06/2023, 0 01/03/2022, 03/02/2021, Additional history exists HbA1c 05/28/2024 11/27/2023, 05/03, 01/28/2023, Additional history exists Albumin/Creatinine Ratio 07/12/2024 023, 10/01/2022, 09/11/2021, Additional history exists GFR 07/24/2024 01/24/2024, 01/02, 12/23/2023, Additional history exists COLONOSCOPY-ANNUAL AGES 18-100 08/09/2024 08/09/2023, 11/07/2022, 11/07/2022, Additional history exists CKD HGB USE SMARTSET 70046 01/24/202501/24, 01/24/2024, 01/21/2024, Additional history exists Lipid [...] this encounter Medical Devices Implanted Type Area Marketing Assistant Manager Device Identifier Shelf Expiration Date Model / Serial / Lot Clareon Iol Aspheric Hydrophobic Acrylic Iol Implanted:Qty: 1 on 04/23/2023 by Cody Gonzalez DO at OR [facility] Lens Left: Eye 11/12/2025 CNA0T0 / [id number] / Viatorr Tips Endoprosthesis 8-10 Mm X 8cm / 2cm Implanted:Qty: 1 on 10/07/2020 by Go Alvarado MD at [facility] Right: Abdomen 03/03/2023 [id number] / / [id number] Description:Viatorr TIPS End oprosthesis 8-10 mm x 8cm / 2cm, Manufactored by [employer] Syr Pf 2ml Embospheres 100-300 - [id number] Implanted:Qty: 1 on 04/18/2021 by Kevin Lim DO at OR [facility] Left: Abdomen [employer] [id number] 11/25/2023 S220GH / / [id number] Lipiodol Injection - [id number] Implanted:Qty: 1 on 03/28/[address] [facility] [employer] 03/01/2023 19493-05 01-2 / / [id number] Syr Pf 2ml Embospheres 100-300 - [id number] Implanted:Qty: 1 on 03/28/[address] [facility] [employer] [id number] 08/31/2024 S220GH / / [id number] -[id number] Clareon Iol Aspheric Hydrophobic Acrylic Iol Implanted:Qty: 1 on 04/02/2023 by Cody Gonzalez DO at OR [facility] Right: Eye JAZMIN 11/12/2025 CNA0T0 / [id number] / documented as of this encounter Advance Directives Documents on File Type Date Recorded Patient Brick Paving Checker Expl anation Advance Directives and Living Will 12/11/2022 ADVANCE DIRECTIVE / LIVING WILL LIVING WILL Power of Release Engineer 12/11/2022 POWER OF A TTORNEY Latest [...] the patient have Health Care Power of Release Engineer? No Full Code 07/22/2014 9:56 PM 07/24/2014 8:18 PM This order reflects the patients wishes and were consensually agreed upon. Question Answer Comments Discussion of Advance Directives occurred with: Patient Does the patient have a Living Will? No Does the patient have Health Care Power of Release Engineer? No Care Teams Wood Pile Driver Operator Relationship Specialty Start Date End Date Francisco Cisse MD [address] [place] [address] PCP - General Internal Medicine 09/04/21 documented as of this encounter
--- OUTSIDE RECORDS SUMMARY | 2024-02-02 21:33 | External Medical Summary | Summary of Care ---
Author Name Unknown Organization [facility] Address 100 [facility] [place] [address] Phone [phone] Care Team Providers Care Industry Operations Investigator Name Role Phone Francisco Cisse MD Primary Care Provider + Reason for Visit * Reason Onset Date Comments Abnormal Lab Results 01/24/2024 hgb Encounter Details Date Type Department Care Team (Late st Contact Info) Description 01/24/2024 Telephone Hematology/Oncology [facility] [place] 200 [facility] [address] Ayaka Tatum CRNP 400 [facility] [place] [address] Abnormal Lab Results (hgb) Allergies No [...] mRNA, LNP-s, No Pre serve, 2-Dose Series (ShoorK) 03/08/2021,02/15/2021 HepA Inact/HepB Recomb>=18yrs old 12/04/2019,04/2019,05/20/2019 11/19/2019 PPD 06/18/2017, 3,01/09/2012,0306/2011 Pneumococcal Conjugate Vacc, 13 Valent (Prevnar) 05/01/2017 Pneumococcal Polysaccharide PPV23 (Pneumovax) 08/28/2022,10/25/2015,07/14/2012 Season Influenza, Quad, PF, Adjuvanted, 65+ Yrs, IM (FLUAD) 10/07/2020(Deferred: Patient Refused - pt says he already had his shot last month at [facility] Handy Lyons and Mckinley Cobian made [...] Telephone Encounter - Kylie Alexander LPN - 01/27/2024 8:37 AM EST Appointment for 01/27 is cancelled; Called and spoke with Luis and he agreed for 01/29 at 1030am * Telephone Encounter - Abdoul Oliva RN [...] orders: Consent, T&S, Transfusion order to [facility] and [facility]. Called Central Scheduling, spoke [...] AM EST Hem/Onc Treatment Hematology/Oncolo gy Treatment, [place] [address] [place] [phone] Pattie, Chair 11 Hem Onc [facility] [address] [place] [address] 01/30/2024 12:42 PM EST Hospital Encounter OR [facility], Operating Room, [facility] - 4th Floor [address] [place] [address] Frank Peraza MD [address] [place] [address] 01/30/2024 12:42 PM EST - 01/30/2024 1:44 PM EST Surgery OR [facility], Operating Room, [facility] Floor [address] [place] [address] Frank Peraza MD [address] [place] [address] [place] [address] CYSTOURETHROSCOPY WITH FULGURATION MEDIUM BLADDER TUMOR 02/04/2024 8:40 AM EST [facility] Lab [place] Phlebotomy [facility] [address] [place] [address] [facility] [place] Home Draw [address] [place] [address] 02/07/2024 11:00 AM EST Telemedicine [facility], [place] [address] [place] [address] Aidee Miller PA-C [address] [place] [address] Kriss Mays, [facility] [employer] [address] [place] [address] 02/14/2024 2:45 PM EDT Office Visit UrologLynnette Solares [address] [place] [address] Frank Peraza MD [address] [place] [address] 02/18/2024 8:40 AM EDT Laboratory Lab [place] Phlebotomy [facility] [address] [place] [address] [facility] [place] [facility] [place] [address] [place] [address] 03/03/2024 8:40 AM EDT Laboratory Lab [place] Phlebotomy [facility] [address] [place] [address] [facility], [facility] [place] [facility] Draw [address] [place] [address] 03/13/2024 2:00 PM EDT Office Visit Dermatology [facility] 200 [facility] [place] [place] [address] Francisco Watson MD 200 [facility] [place] [place] [address] 03/17/2024 8:40 AM EDT Laboratory Lab [place] Phlebotomy [facility] [address] [place] [address] [facility], [facility] [place] [facility] Draw [address] [place] [address] 03/24/2024 2:30 PM EDT Office Visit Hematology/Oncolo gy [facility] [address] [place] [address] Ayaka Tatum CRNP 400 [place] [address] 03/30/2024 12:00 PM EDT Office Visit Family Practice [facility] [address] [place] [address] Kristen Vences DO [address] [place] [address] 03/31/2024 8:40 AM EDT Laboratory Lab [place] Phlebotomy [facility] [address] [place] [address] [facility] [place] Draw [address] [place] [address] 04/07/2024 10:00 AM EDT Office Visit Gastroenterology, [facility] [address] [place] [address] Lamar Tatum CRNP [address] [place] [address] 04/14/2024 8:40 AM EDT Laboratory Lab [place] Phlebotomy [facility] [address] [place] [address] [facility] [place] [facility] Draw [address] [place] [address] 04/28/2024 8:40 AM EDT Laboratory Lab [place] Phlebotomy [facility] [address] [place] [address] [facility] [place] Home Draw [address] [place] [address] 05/12/2024 8:40 AM EDT Laboratory Lab [place] Phlebotomy [facility] [address] [place] [address] [facility] [place] [facility] Draw [address] [place] [address] 05/26/2024 8:40 AM EDT Laboratory Lab [place] Phlebotomy [facility] [address] [place] [address] [facility], [facility] Draw [address] [place] [address] 06/09/2024 8:40 AM EDT Laboratory Lab [place] Phlebotomy [facility] [address] [place] [address] [facility], [facility] Draw [address] [place] [address] 06/23/2024 8:40 AM EDT Laboratory Lab [facility] Phlebotomy [facility] [address] [place] [address] [facility], [facility] [place] [facility] Draw [address] [place] [address] 07/07/2024 8:40 AM EDT Laboratory Lab [place] Phlebotomy [facility] [address] [place] [address] [facility], [facility] [place] [facility] Draw [address] [place] [address] 07/21/2024 8:40 AM EDT Laboratory Lab [place] Phlebotomy [facility] [address] [place] [address] [facility], [facility] Draw [address] [place] [address] 08/04/2024 8:40 AM EDT Laboratory Lab [place] Phlebotomy [facility] [address] [place] [address] [facility], [facility] [place] [facility] Draw [address] [place] [address] 08/18/2024 8:40 AM EDT Laboratory Lab [place] Phlebotomy [facility] [address] [place] [address] [facility] [place] [facility] Draw [address] [place] [address] 08/20/2024 10:15 AM EDT Office Visit Ophthalmology, [facility] [address] [place] [address] Cody Gonzalez DO [address] [place] [address] 09/01/2024 8:40 AM EDT Laboratory Lab [place] Phlebotomy [facility] [address] [place] [address] [facility] Draw [address] [place] [address] 09/15/2024 8:40 AM EDT Laboratory Lab [place] Phlebotomy [facility] [address] [place] [address] [facility] [place] Draw [address] [place] [address] Scheduled Orders Name Type Priority Associated Diagnoses [...] Additional history exists CKD PHOS USE SMARTSET 10002 01/28/202401/03, 07/26/2022, 12/05/2021, Additional history exists Diabetic Foot Exam 03/06/2024 03/06/2023, 0 01/03/2022, 03/02/2021, Additional history exists HbA1c 05/28/2024 11/27/2023, 05/03, 01/28/2023, Additional history exists Albumin/Creatinine Ratio 07/12/2024 023, 10/01/2022, 09/11/2021, Additional history exists GFR 07/24/2024 01/24/2024, 01/02, 12/23/2023, Additional history exists COLONOSCOPY-ANNUAL AGES 18-100 08/09/2024 08/09/2023, 11/07/2022, 11/07/2022, Additional history exists CKD HGB USE SMARTSET 23384 01/24/202501/24, 01/24/2024, 01/21/2024, Additional history exists Lipid [...] this encounter Medical Devices Implanted Type Area Urogynaecologist Device Identifier Shelf Expiration Date Model / Serial / Lot Clareon Iol Aspheric Hydrophobic Acrylic Iol Implanted:Qty: 1 on 04/23/2023 by Cody Gonzalez DO at OR [facility] Lens Left: Eye 11/12/2025 CNA0T0 / [id number] / Viatorr Tips Endoprosthesis 8-10 Mm X 8cm / 2cm Implanted:Qty: 1 on 10/07/2020 by Go Alvarado MD at [facility] Right: Abdomen 03/03/2023 [id number] / / [id number] Description:Viatorr TIPS End oprosthesis 8-10 mm x 8cm / 2cm, Manufactored by [employer] Syr Pf 2ml Embospheres 100-300 - [id number] Implanted:Qty: 1 on 04/18/2021 by Kevin Lim DO at OR [facility] Left: Abdomen [employer] [id number] 11/25/2023 S220GH / / [id number] Lipiodol Injection - [id number] Implanted:Qty: 1 on 03/28/2022 at [facility] [employer] 03/01/2023 07276-39 01-2 / / [id number] Syr Pf 2ml Embospheres 100-300 - [id number] Implanted:Qty: 1 on 03/28/2022 at [facility] [employer] [id number] 08/31/2024 S220GH / / [id number] -5 Clareon Iol Aspheric Hydrophobic Acrylic Iol Implanted:Qty: 1 on 04/02/2023 by Cody Gonzalez DO at OR [facility] Right: Eye JAZMIN 11/12/2025 CNA0T0 / [id number] / documented as of this encounter Visit Diagnoses Diagnosis Hematuria, gross- Primary Gross hematuria Prostate cancer (HCC) Malignant neoplasm of prostate Abnormal cystoscopy Other nonspecific abnormal finding Iron deficiency anemia, unspecified iron deficiency anemia type- Primary Hematuria, gross Gross hematuria Abnormal cystoscopy Other nonspecific abnormal finding documented in this encounter Advance Directives Documents on File Type Date Recorded Patient Hunter Trapper Expl anation Advance Directives and Living Will 12/11/2022 ADVANCE DIRECTIVE / LIVING WILL LIVING WILL Power of Line Controller 12/11/2022 POWER OF A TTORNEY Latest Code [...] the patient have Health Care Power of Line Controller? No Full Code 07/22/2014 9:56 PM 07/24/2014 8:18 PM This order reflects the patients wishes and were consensually agreed upon. Question Answer Comments Discussion of Advance Directives occurred with: Patient Does the patient have a Living Will? No Does the patient have Health Care Power of Line Controller? No Care Teams Industry Operations Investigator Relationship Specialty Start Date End Date Francisco Cisse MD [address] [place] [address] PCP - General Internal Medicine 09/04/21 documented as of this encounter
--- OUTSIDE RECORDS SUMMARY | 2024-02-02 21:33 | External Medical Summary | Summary of Care ---
Author Name Unknown Organization [facility] Address [address] [facility] [place] [address] Phone [phone] Care Team Providers Care Cyber Engineer Name Role Phone Francisco Cisse MD Primary Care Provider + Reason for Visit * Reason Comments Infusion Monoferric * Episode Based Medications (Routine) - Authorized Specialty Diagnoses / Procedures Referred By Chacho t Referred To Contact Diagnoses Iron deficiency anemia, unspecified iron deficiency anemia type GAVE (gastric antral vascular ectasia) Procedures PA INJ. FE DERISOMALTOSE 10 MG Ayaka Tatum CRNP [address] [place] [address] Anc Hem/Onc [address] [place] [address] Referral ID Status Reason Start Date Expiration Date V isits Requested Visits Authorized [id number] Authorized 01/20/2024 12/01/[phone] Encounter Details Date Type Department Care Team (Latest Contact Info) Description 01/29/2024 10:30 AM EST Hem/Onc Treatment Hematology/Oncology Treatment, [address] [address] Pattie Chair 11 Hem Onc [address] [address] Iron deficiency anemia, unspecified iron deficiency anemia type*; GAVE (gastric antral vascular ectasia) Allergies No known active allergiesdocumented as of this encounter (statuses as of 01/29/2024) Medications Medication Sig Dispensed Refills Start Date [...] as of this encounter (statuses as of 01/29/2024) Active Problems Problem Noted Date Diagnosed Date [...] as of this encounter (statuses as of 01/29/2024) Resolved Problems Problem Noted Date Diagnosed Date [...] as of this encounter (statuses as of 01/29/2024) Immunizations Name Administration Dates Next Due COVID-19 mRNA, LNP-s, No Pre serve, 2-Dose Series (DailyWorth) 03/08/2021,02/15/2021 HepA Inact/HepB Recomb>=18yrs old 12/04/2019,04/2019,05/20/2019 11/19/2019 PPD 06/18/2017, 3,01/09/2012,06/2011 Pneumococcal Conjugate Vacc, 13 Valent (Prevnar) 05/01/2017 Pneumococcal Polysaccharide PPV23 (Pneumovax) 08/28/2022,10/25/2015,07/14/2012 Season Influenza, Quad, PF, Adjuvanted, 65+ Yrs, IM (FLUAD) 10/07/2020(Deferred: Patient Refused - pt says he already had his shot last month at [facility] Handy Lyons and Mckinley Cobian made aware) [...] Sign Reading Time Taken Comments Blood Pressure 136/70 01/29/2024 10:41 AM EST Pulse 64 01/29/2024 10:41 AM EST Temperature 36.2 C (97.2 F) 01/29/2024 10:[address] Respiratory Rate 18 01/29/2024 10:41 AM EST Oxygen Saturation 93% 01/29/2024 10:41 AM EST Inhaled Oxygen Concentration - - [...] as of this encounter Nursing Notes * Sue Esquivel LPN - 01/29/2024 10:45 AM EST 1020: Chair 4. Pt arrived for Monoferric infusion. PIV in LFA. Pt tolerated well. VSS. Pt aware of 30 minute observation. Resting quietly at this time. 1125: Pt tolerated Monoferric infusion well. PIV removed intact. Pt to have labs in 4 weeks. Discharged in stable condition. documented in this encounter Plan of Treatment Upcoming Encounters Date Type Department Care Team (Latest Contact Info) Description 01/30/2024 12:42 PM EST Hospital Encounter OR [facility], Operating Room, [facility] - 4th Floor [address] [place] [address] Frank Peraza MD [address] [place] [address] [facility] [address] 01/30/2024 12:42 PM EST - 01/30/2024 1:44 PM EST Surgery OR [facility], Operating Room, [facility] - [facility] Floor [address] [place] [address] Frank Peraza MD [address] [place] [address] [place] [address] CYSTOURETHROSCOPY WITH FULGURATION MEDIUM BLADDER TUMOR 02/04/2024 8:40 AM EST Laboratory [facility] [address] [place] [address] [facility] Mobile Home Draw [address] [place] [address] 02/07/2024 11:00 AM EST Telemedicine [facility], [place] [address] [place] [address] Aidee Miller PA-C [address] [place] [address] Kriss Mays, [facility] [address] [place] [address] 02/14/2024 2:45 PM EDT Office Visit Urologshelbi ZhangLynnette [address] [place] [address] Frank Peraza MD [address] [place] [address] 02/18/2024 8:40 AM EDT Laboratory Lab [facility] [address] [place] [address] [facility], [facility] Draw [address] [place] [address] 02/24/2024 10:45 AM EDT Imaging Radiology [address], [place] [address] [place] [address] 03/03/2024 8:40 AM EDT Laboratory [facility] [address] [place] [address] [facility], [facility] Mobile Home Draw [address] [place] [address] 03/13/2024 2:00 PM EDT Office Visit Dermatology [facility] [address] [facility] [place] [address] Francisco Watson MD [address] [facility] [place] [address] 03/17/2024 8:40 AM EDT Laboratory Lab [facility] [address] [place] [address] [facility], [facility] Mobile Home Draw [address] [place] [address] 03/24/2024 2:30 PM EDT Office Visit Hematology/Oncolo gy [facility] [address] [place] [id number] Ayaka Tatum CRNP [address] [place] [address] 03/30/2024 12:00 PM EDT Office Visit Family Practice [facility] [address] [place] [address] Kristen Vences DO [address] [place] [address] 03/31/2024 8:40 AM EDT Laboratory Lab [facility] [address] [place] [address] [facility] [address] [place] [address] 04/07/2024 10:00 AM EDT Office Visit Gastroenterology, [facility] [address] [place] [address] Lamar Tatum CRNP [address] [place] [address] 04/14/2024 8:40 AM EDT Laboratory Lab [facility] [address] [place] [address] [facility] [address] [place] [address] 04/28/2024 8:40 AM EDT Laboratory Lab Mobile Phlebotomy [facility] [address] [place] [address] [facility] [address] [place] [address] 05/12/2024 8:40 AM EDT Laboratory Lab [facility] Phlebot[facility] C [address] [place] [address] [facility] [address] [place] [address] 05/26/2024 8:40 AM EDT Laboratory Lab [facility] [address] [place] [address] [facility] [address] [place] [address] 06/09/2024 8:40 AM EDT Laboratory Lab [facility] Phlebot[facility] [address] [place] [address] [facility] [address] [place] [address] 06/23/2024 8:40 AM EDT Laboratory Lab [facility] Phle[facility] [address] [place] [address] [facility] [address] [place] [address] 07/07/2024 8:40 AM EDT Laboratory Lab [facility] Phle[facility] [address] [place] [address] [facility] [address] [place] [address] 07/21/2024 8:40 AM EDT Laboratory [facility] [address] [place] [address] [facility] [address] [place] [address] 08/04/2024 8:40 AM EDT Laboratory Lab [facility] [address] [place] [address] [facility] [address] [place] [address] 08/18/2024 8:40 AM EDT Laboratory Lab [facility] Ph[facility] [address] [place] [address] [facility] [address] [place] [address] 08/20/2024 10:15 AM EDT Office Visit Ophthalmology, [facility] [address] [facility] [place] [address] Cody Gonzalez DO [address] [facility] [place] [address] 09/01/2024 8:40 AM EDT Laboratory Lab [facility] [address] [place] [address] [facility], [facility] Draw [address] [place] [address] 09/15/2024 8:40 AM EDT Laboratory Lab [facility] [address] [place] [address] [facility], [facility] Home Draw [address] [place] [address] Scheduled Procedures Name Priority Associated Diagnoses Date/Ti ky CYSTOURETHROSCOPY WITH FULGU RATION MEDIUM BLADDER TUMOR [...] Additional history exists CKD PHOS USE SMARTSET 35734 01/28/202401/03, 07/26/2022, 12/05/2021, Additional history exists Diabetic Foot Exam 03/06/2024 03/06/2023, 0 01/03/2022, 03/02/2021, Additional history exists HbA1c 05/28/2024 11/27/2023, 05/03, 01/28/2023, Additional history exists Albumin/Creatinine Ratio 07/12/2024 023, 10/01/2022, 09/11/2021, Additional history exists GFR 07/24/2024 01/24/2024, 01/02, 12/23/2023, Additional history exists COLONOSCOPY-ANNUAL AGES 18-100 08/09/2024 08/09/2023, 11/07/2022, 11/07/2022, Additional history exists CKD HGB USE SMARTSET 53889 01/24/202501/24, 01/24/2024, 01/21/2024, Additional history exists Lipid [...] this encounter Medical Devices Implanted Type Area Security Messenger Device Identifier Shelf Expiration Date Model / Serial / Lot Clareon Iol Aspheric Hydrophobic Acrylic Iol Implanted:Qty: 1 on 04/23/2023 by Cody Gonzalez DO at OR [facility] Lens Left: Eye 11/12/2025 [id number] / [id number] / Viatorr Tips Endoprosthesis 8-10 Mm X 8cm / 2cm Implanted:Qty: 1 on 10/07/2020 by Go Alvarado MD at [facility] Right: Abdomen 03/03/2023 [id number] / / [id number] Description:Viatorr TIPS End oprosthesis 8-10 mm x 8cm / 2cm, Manufactored by [employer] Syr Pf 2ml Embospheres 100-300 - [id number] Implanted:Qty: 1 on 04/18/2021 by Kevin Lim DO at OR [facility] Left: Abdomen [employer] [id number] 11/25/2023 [id number] / / [id number] Lipiodol Injection - [id number] Implanted:Qty: 1 on 03/28/2022 at [facility] [employer] 03/01/2023 03334-21 01-2 / / [id number] Syr Pf 2ml Embospheres 100-300 - [id number] Implanted:Qty: 1 on 03/28/2022 at [facility] [employer] [id number] 08/31/2024 S220GH / / [id number] -[id number] Clareon Iol Aspheric Hydrophobic Acrylic Iol Implanted:Qty: 1 on 04/02/2023 by Cody Gonzalez DO at OR [facility] Right: Eye JAZMIN 11/12/2025 CNA0T0 / [id number] / documented as of this encounter [...] finding documented in this encounter Administered Medications Active Administered Medications - up to 3 most recent administrations Medication Order MAR Action Action Date Dose Rate Site diphenhydrAMINE (Benadryl) inj 50 mg 50 mg, IV Push, ONCE PRN Other, Hypersensitivity Reaction, Starting on Sat01/29/24 at 1023, Until Sat01/30/24 at 1022, For 24 hours EPINEPHrine 1 MG/ML inj 0.3 mg 0.3 mg, Intramuscular, ONCE PRN Other, Hypersensitivity Reaction or Anaphylaxis, Starting on Sat01/29/24 at 1023, Until Sharon 01/30/24 at 1022, For 24 hours hEParin 100 UNIT/ML Lock Flush inj 500 Units 500 Units (5 mL), IV Lock, PRN Other, IV Flush, Starting on Sat01/29/24 at 1023, Until Sharon 01/30/24 at 1022, For 24 hours, Do not flush if lock, PICC, or central line not in place; IV infusing or unable to flush. Hydrocortisone Sod Suc (PF) (Solu-Cortef) inj 100 mg 100 mg, IV Push, ONCE PRN Other, Hypersensitivity Reaction, Starting on Sat01/29/24 at 1023, Until Sharon 01/30/24 at 1022, For 24 hours NSS infusion Intravenous, at 50 mL/hr, PRN, Starting on Sat01/29/24 at 1130, Until Discontinued, Maintenance line Start Infusion 01/29/2024 10:23 AM EST 50 mL/hr oxygen GAS Inhalation, OXYGEN, First dose on Sat01/29/24 at 1100, Until Discontinued, Device/Managed by: Low Flow Device, Goal SPO2 (%): 91-95, Starting Device: Nasal Cannula, Initial Flow Rate (LPM): 2, Lowest Support: Nasal Cannula: Flow 0-6 LPM. Titrate up/down by 1 LPM., Higher Support: Non-Rebreather (NRB) Mask: Minimum of 10 LPM. Titrate to maintain bag inflation., Titration Interval: Q2 minutes and as needed., Notify Provider: For sudden DECREASE in resting SPO2 to less than 85% and when escalating delivery device., Wean patient off Oxygen when the oxygen saturation is greater than or equal to 93% sodium chloride 0.9 % flush central line 10 mL 10 mL, IV Push, PRN Other, IV Flush, Starting on Sat01/29/24 at 1023, Until Sharon 01/30/24 at 1022, For 24 hours, Do not flush if lock, PICC, or central line not in place; IV infusing or unable to flush. 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 No Full Code 07/22/2014 9:56 PM 07/24/2014 8:18 PM This order reflects the patients wishes and were consensually agreed upon. Question Answer Comments Discussion of Advance Directives occurred with: Patient Does the patient have a Living Will? No Does the patient have Health Care Power of Manager Outpatient? No Care Teams Cyber Engineer Relationship Specialty Start Date End Date Francisco Cisse MD [address] [facility] [place] [address] PCP - General Internal Medicine 09/04/21 documented as of this encounter
--- OUTSIDE RECORDS SUMMARY | 2024-02-02 21:34 | External Medical Summary ---
Author Name Unknown Address Unknown Organization K01:[facility] [place] - [address] [place] [address] Laboratory Report Ordering Provider Test Date Status TILAONIELCHELSEY 01/24/2024 15:10:42 Final Observation Date Value Abnormality Reference (Units) Status Bacteria identified in Specimen by Culture 01/24/2024 15:10:42 No significant growth Final Test: Culture, Urine, Quanti tative
Specimen Source: Urine, Clean Catch
Specimen Type: Urine
Specimen Date: 01/24/2024 3:10 PM
Result Date: 01/26/2024 7:16 AM
Result Status: Final result
Resulting Lab: [facility]
[address]
[facility] [address]

CULTURE

No significant growth

null Performing Location LABORATORY [facility] - [address] [place] [id number]
--- NOTE | 2024-02-02 21:54 | Emergency Department Note ---
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 Having some intermittent bladder pain. No pain at the moment. Some clots into the tubing and bag and some clots coming out as well as blood around the catheter at the tips of the penis. Denies significant abdominal or flank pain. Little bit of slight chest pain earlier little bit of shortness of breath. States feels little bit similar to when he was here last week in the hospital for low blood counts. Was transfused at that time. No fevers reported. PAST MEDICAL HISTORY: As noted above MEDICATIONS: Reviewed home medications no anticoagulants or aspirin SOCIAL HISTORY: Non-smoker PHYSICAL EXAM: GENERAL: alert and oriented in no acute distress on stretcher Head: normocephalic and atraumatic EYES: No injection, discharge or icterus. NECK: Trachea midline. ENT: Mucous membranes pink and moist. LUNGS: Airway patent. No retractions. Breath sounds clear HEART: Regular rate and rhythm. No chest wall tenderness ABDOMEN: Soft and non-tender, without guarding or rebound. No significant suprapubic fullness or tenderness. Kan catheter in place dark red blood in the catheter and scattered clots noted in the bag SKIN: Acyanotic, warm, dry, without rashes EXTREMITIES: Without swelling, tenderness or deformity NEUROLOGICAL: No focal deficits. No aphasia. No facial droop or slurred speech. EK bpm. Normal sinus rhythm. No PVC or PAC. No acute ST segment elevation with a QTc of 452. CONTINUOUS CARDIAC MONITORING: was ordered and showed a heart rate of 60s-70s bpm in reviewed home medications 1 view chest x-ray: Per my interpretation no evidence of pneumonia, pneumothorax, or significant fluid overload. Patient's laboratory studies and imaging reviewed. Differential includes anemia, testicular torsion, mass, infection, hernia, hydrocele, epididymitis, STI, trauma, intra-abdominal process, ACS, cardiac disease, pulmonary disease/pneumonia, COVID-19, urinary retention as well as other pathologies. IMPRESSION/MEDICAL DECISION MAKING: Patient not encephalopathic. Not significantly hypoxic now. Slight chest pain and little bit shortness of breath earlier. Son questions if this is related to low blood counts. Had recent transfusions similar episode. History of bleeding issues prickly hematuria after radiation from cystitis. Evidently in [place] with Dr. Peraza had fulguration of bladder on and Kan catheter placed. Draining brown yesterday now to more of a dark red with some blood and clots both in the bag ends from around the Kan catheter at the tip of the penis. Patient remittent lower abdominal pain but not now. Fairly nontender. Will irrigate the Kan catheter. Will check blood counts to look for signs of anemia. EKG and troponin completed was chest x-ray and COVID testing but seems less likely to be primary pulmonary or cardiac. Full irrigated by nursing with some clots returned but does not seem to be retaining at this time. Chest x-ray reassuring on my review. Again not hypoxic here. Blood work here with mild hyperkalemia 5.6. Stable kidney function creatinine 1.3. No significant sodium abnormality. Hyperglycemia noted of 351 with an lactate of 2.1. Not severely elevated. Troponin normal. Chest x-ray without acute findings by my review again. Slight leukopenia of 4.0. Hemoglobin is 7.9 from 8.6 last week. No indication for transfusion at this time. I doubt sepsis. Did not have eating medicines. Nursing did reirrigate the Kan and additional clots were removed. No feel at this point hide proceed with three-way and CBI but will recommend we observe him overnight with intermittent irrigation to help ensure his bladder stays clear. Feel that additional trauma with changing the catheter could be counterproductive. If things worsen however this may be needed. Patient and son in agreement and hospitalist was contacted. DIAGNOSIS: Hematuria, anemia, hyperglycemia due to type 2 diabetes, CKD, cirrhosis DISPOSITION: Hospitalist will evaluate Patient was agreeable with this plan. 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 Anemia of chronic disease under surveillance Prostate cancer Hx radiation History of panic attacks Gout No current issues GERD (gastroesophageal reflux disease) GAVE (gastric antral vascular ectasia) CKD (chronic kidney disease) stage 3, GFR 30-59 ml/min Hypertension Hx Esophageal varices EGD 05/22/23 ([facility]): Grade 1 varices in distal esophagus without high risk stigmata Upper GI bleed Hx Psoriasis Surgical History History of left cataract surgery History of right cataract surgery History of prostate biopsy malignant S/P TIPS (transjugular intrahepatic portosystemic shunt) History of esophagogastroduodenoscopy (EGD) Most recent 05/2023 [facility] History of colonoscopy with polypectomy History of tonsillectomy and adenoidectomy History of abdominal paracentesis Multiple, most recent 01/2023 Family History Father , "3/4 liver gone due to drinking" Colorectal cancer, Onset Age: 63 Mother Lung cancer Daughter Cancer cervical and thyroid cancers Ovarian cancer Other No family history of adverse response to anesthesia 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 Smoking Status: Never smoker Second Hand Exposure: No; Do You Dip or Chew Tobacco: No; Tobacco Cessation Education Requested by Patient: No Hx Alcohol Use: No Hx Substance Use: No Preferred Language: Mohawk Communication Ability: Effective Visual Impairment: No Limitations Hearing Ability: Normal Blood And Plasma Laboratory Assistant Required: No Beliefs That Will Affect Care: None marital status: Current Living Situation: Spouse Current Living Situation Comment: 1 level single family home 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 How many Children do You have: 6 How many Children do You have Comment: one , eldest daughter in her sleep from seizure disorder Other Information That Helps Us Care for You: No Feels Safe at Home: Yes Safety Concerns: Feels Safe At This Time Childhood Exposure to Second-Hand Smoke: Yes Diet Comment: "I watch my sugar, average fasting is 140 mg/dl" caffeine: Yes (cola, sugar free, decaf) during the past year weight has: remained stable Dental Care, Regularly: No Physical Activity Frequency: Does not Exercise Seatbelt Use: always Sunscreen Use: Yes Assistive Devices: Oxygen - at Night and Walker Allergies Allergies Allergy/AdvReac Type Severity Reaction Status Date / Time No Known Allergies Allergy Mild Verified 02/03/24 00:09 Home Meds Home Medications Medication Instructions Recorded Confirmed allopurinol 100 mg tablet 200 mg PO QAM 05/16/20 02/02/24 finasteride 5 mg tablet 5 mg PO QAM 11/03/21 02/02/24 furosemide 20 mg tablet (Lasix) 40 mg PO QAM 11/02/22 02/02/24 insulin glargine 100 unit/mL 27 unit subcut QPM 11/05/22 02/02/24 subcutaneous solution (Lantus U-100 Insulin) acetaminophen 325 mg tablet 650 mg PO Q8H PRN Fever Or Pain 02/24/23 02/02/24 (Tylenol) Lactobacil.acidophilus-Bifido.animalis 1 cap PO QAM 05/17/23 02/03/24 5 billion cell sprinkle capsule (Probiotic) acetylcysteine 600 mg capsule 1,200 mg PO QAM 05/17/23 02/02/24 ferrous sulfate 325 mg (65 mg 650 mg PO QAM 05/17/23 02/02/24 iron) tablet (iron) grgpvkfgwben-hiz-tozrg acid-vit 1 tab PO DAILY 05/17/23 02/03/24 K-lycop 400 mcg-20 mcg-370 mcg tablet (Men's 50 Plus Multivitamin) metoclopramide HCl 5 mg tablet 5 mg PO TID PRN Nausea 09/21/23 02/02/24 mirtazapine 30 mg tablet (Remeron) 30 mg PO HS 09/21/23 02/03/24 duloxetine 30 mg capsule,delayed 30 mg PO QAM 02/02/24 02/02/24 release pantoprazole 40 mg tablet,delayed 40 mg PO AMPM 02/02/24 02/02/24 release rifaximin 550 mg tablet (Xifaxan) 550 mg PO AMHS 02/02/24 02/02/24 tramadol 50 mg tablet 50 mg PO Q6 PRN pain,severe 02/02/24 02/02/24 zinc 50 mg capsule 50 mg PO QAM 02/03/24 02/03/24 Previous Rx's Medication Instructions Recorded lactulose 10 gram oral packet 10 g PO BID #15 ea 09/23/23 (Kristalose) Results & Data (ED) Vital Signs Vital Signs - 24 hr 02/02/24 21:28 02/02/24 22:10 02/02/24 22:11 Temperature 36.5 C Temperature Source Temporal Artery Scan Pulse Rate 69 71 67 Pulse Rate [Left Finger] Pulse Rhythm Regular Pulse Rhythm [Left Finger] Pulse Strength [Left Finger] Respiratory Rate 16 17 Respiratory Effort / Characteristics Respiratory Depth Respiratory Pattern Blood Pressure 149/82 H Blood Pressure [Left Arm] Blood Pressure Mean 104 Blood Pressure Mean [Left Arm] Blood Pressure Position [Left Arm] Pulse Oximetry 98 98 Oxygen Delivery Method Room Air Room Air Sepsis Recent Fever Within 48 Hours No Sepsis New/Unexplained Change in Mental Status No Sepsis Action Taken by Nursing No Action Required 02/02/24 22:11 02/02/24 22:13 02/02/24 23:09 Temperature Temperature Source Pulse Rate Pulse Rate [Left Finger] 66 66 Pulse Rhythm Pulse Rhythm [Left Finger] Pulse Strength [Left Finger] Respiratory Rate 14 15 Respiratory Effort / Characteristics Respiratory Depth Respiratory Pattern Blood Pressure Blood Pressure [Left Arm] 148/65 H 162/59 H Blood Pressure Mean Blood Pressure Mean [Left Arm] 92 93 Blood Pressure Position [Left Arm] Pulse Oximetry 98 98 98 Oxygen Delivery Method Room Air Room Air Room Air Sepsis Recent Fever Within 48 Hours Sepsis New/Unexplained Change in Mental Status Sepsis Action Taken by Nursing 02/02/24 23:50 Temperature Temperature Source Pulse Rate Pulse Rate [Left Finger] 65 Pulse Rhythm Pulse Rhythm [Left Finger] Regular Pulse Strength [Left Finger] Normal Respiratory Rate 20 Respiratory Effort / Characteristics Non-Labored Spontaneous Respiratory Depth Normal Respiratory Pattern Regular Blood Pressure Blood Pressure [Left Arm] 173/74 H Blood Pressure Mean Blood Pressure Mean [Left Arm] 107 Blood Pressure Position [Left Arm] Lying Pulse Oximetry 100 Oxygen Delivery Method Room Air Sepsis Recent Fever Within 48 Hours Sepsis New/Unexplained Change in Mental Status Sepsis Action Taken by Nursing Laboratory Data 02/02/24 22:35 02/02/24 22:35 Lab Results 02/02/24 02/02/24 02/02/24 Range/Units 22:20 22:35 22:37 WBC 4.02 L (4.8-10.8) K/ul RBC 2.55 L (4.70-6.10) M/uL Hgb 7.9 L (14.0-18.0) g/dl Hct 25.1 L (42.0-52.0) % MCV 98.4 (80.0-100.0) fL MCH 31.0 (25.0-34.0) pg MCHC 31.5 L (32.0-36.0) g/dL RDW Std Deviation 68.1 H (36.4-46.3) fL RDW Coeff of Violetta 20.6 H (11.5-14.5) % Plt Count 67 L (130-400) K/uL MPV 12.2 (9.4-12.4) fL Immature Gran % (Auto) 1.2 % Neut % (Auto) 73.7 % Lymph % (Auto) 15.7 % [place] % (Auto) 5.2 % Eos % (Auto) 3.7 % Baso % (Auto) 0.5 % Neut # (Auto) 2.96 (1.40-6.50) K/uL Lymph # (Auto) 0.63 L (1.20-3.40) K/uL [place] # (Auto) 0.21 (0.11-0.59) K/uL Eos # (Auto) 0.15 (0.00-0.50) K/uL Baso # (Auto) 0.02 (0.00-0.20) K/uL Immature Gran # (Auto) 0.05 (0.01-0.20) K/uL Absolute Nucleated RBC 0.02 (0.00-0.12) K/uL Nucleated RBC % (auto) 0.5 % Anisocytosis Present Tear Drop Cells 1+ PT 12.6 H (9.0-12.0) Seconds INR 1.2 H (0.9-1.1) APTT 29 (21-31) Seconds PTT Ratio 1.0 Sodium 138 (136-145) mmol/L Potassium 5.6 H (3.5-5.1) mmol/L Chloride 110 H (98-107) mmol/L Carbon Dioxide 25 (21-32) mmol/L Anion Gap 3 (3-11) BUN 32 H (6-23) mg/dl Creatinine 1.30 (0.6-1.4) mg/dl Est Cr Clr Drug Dosing 52.3 ml/min Est GFR ( Amer) 62.7 ml/min Est GFR (Non-Af Amer) 54.1 ml/min BUN/Creatinine Ratio 24.6 H (10-20) Glucose 351 H* (70-99(Fasting)) mg/dl Lactate (0.4-2.0) mmol/L Calcium 8.0 L (8.6-10.3) mg/dl Total Bilirubin 2.3 H (0.2-1.0) mg/dl AST 42 H (13-39) U/L ALT 22 (7-52) U/L Alkaline Phosphatase 167 H (34-104) U/L Troponin I High Sens 7.8 (0-20) pg/ml Total Protein 6.1 (6.0-8.3) gm/dl Albumin 2.7 L (3.4-5.0) gm/dl Globulin 3.4 (2.5-4.0) gm/dl Albumin/Globulin Ratio 0.8 L (0.9-2) SARS-CoV-2, RNA, NAAT NEGATIVE (NEGATIVE) Blood Type O Positive Antibody Screen NEGATIVE 02/02/24 Range/Units Unknown WBC (4.8-10.8) K/ul RBC (4.70-6.10) M/uL Hgb (14.0-18.0) g/dl Hct (42.0-52.0) % MCV (80.0-100.0) fL MCH (25.0-34.0) pg MCHC (32.0-36.0) g/dL RDW Std Deviation (36.4-46.3) fL RDW Coeff of [place]ta (11.5-14.5) % Plt Count (130-400) K/uL MPV (9.4-12.4) fL Immature Gran % (Auto) % Neut % (Auto) % Lymph % (Auto) % [place] % (Auto) % Eos % (Auto) % Baso % (Auto) % Neut # (Auto) (1.40-6.50) K/uL Lymph # (Auto) (1.20-3.40) K/uL [place] # (Auto) (0.11-0.59) K/uL Eos # (Auto) (0.00-0.50) K/uL Baso # (Auto) (0.00-0.20) K/uL Immature Gran # (Auto) (0.01-0.20) K/uL Absolute Nucleated RBC (0.00-0.12) K/uL Nucleated RBC % (auto) % Anisocytosis Tear Drop Cells PT (9.0-12.0) Seconds INR (0.9-1.1) APTT (21-31) Seconds PTT Ratio Sodium (136-145) mmol/L Potassium (3.5-5.1) mmol/L Chloride (98-107) mmol/L Carbon Dioxide (21-32) mmol/L Anion Gap (3-11) BUN (6-23) mg/dl Creatinine (0.6-1.4) mg/dl Est Cr Clr Drug Dosing ml/min Est GFR ( Amer) ml/min Est GFR (Non-Af Amer) ml/min BUN/Creatinine Ratio (10-20) Glucose (70-99(Fasting)) mg/dl Lactate 2.1 H* (0.4-2.0) mmol/L Calcium (8.6-10.3) mg/dl Total Bilirubin (0.2-1.0) mg/dl AST (13-39) U/L ALT (7-52) U/L Alkaline Phosphatase (34-104) U/L Troponin I High Sens (0-20) pg/ml Total Protein (6.0-8.3) gm/dl Albumin (3.4-5.0) gm/dl Globulin (2.5-4.0) gm/dl Albumin/Globulin Ratio (0.9-2) SARS-CoV-2, RNA, NAAT (NEGATIVE) Blood Type Antibody Screen Administered Medications Rifaximin (Rifaximin 550 Mg Tablet) 550 mg PO BID JODI Stop: 03/03/24 23:44 Last Admin: 02/02/24 23:56 Dose: 550 mg Documented By: CAITLYN Discontinued Medications Pantoprazole Sodium (Pantoprazole 40 Mg Tab) 40 mg PO NOW STA Stop: 02/02/24 23:36 Last Admin: 02/02/24 23:56 Dose: 40 mg Documented By: CAITLYN Discharge Plan Visit Data Chief Complaint: Shortness of Breath/Dyspnea Stated Complaint: PAIN WHILE URINATING/HEMATURIA, SOB, CHEST PAIN ED Provider: Jonny Hoskins Discharge Problem: Gross hematuria, Anemia, CKD (chronic kidney disease) stage 3, GFR 30-59 ml/min, 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 Patient Disposition: Being Evaluated by Hospitalist Forms Stand Alone Forms: My [facility] Prescriptions Prescriptions: No Action allopurinol 100 mg Tablet 200 mg PO QAM furosemide [Lasix] 20 mg Tablet 40 mg PO QAM Rx Instructions: 2 tablet dose acetaminophen [Tylenol] 325 mg Tablet 650 mg PO Q8H PRN (Reason: Fever Or Pain) ferrous sulfate [iron] 325 mg (65 mg iron) Tablet 650 mg PO QAM Rx Instructions: 2 tablet dose acetylcysteine 600 mg Capsule 1,200 mg PO QAM Men's 50 Plus Multivitamin 400-20-370 mcg Tablet 1 tab PO DAILY Probiotic 5 billion cell Capsule, Sprinkle 1 cap PO QAM finasteride 5 mg Tablet 5 mg PO QAM insulin glargine [Lantus U-100 Insulin] 100 unit/mL solution 27 unit subcut QPM metoclopramide HCl 5 mg tablet 5 mg PO TID PRN (Reason: Nausea) mirtazapine [Remeron] 30 mg tablet 30 mg PO HS lactulose [Kristalose] 10 gram packet 10 g PO BID Qty: 15 0RF Rx Instructions: Titrate your lactulose as advised to have 2-3 good Bowel movements per day tramadol 50 mg tablet 50 mg PO Q6 PRN (Reason: pain,severe) pantoprazole 40 mg tablet,delayed release (DR/EC) 40 mg PO AMPM duloxetine 30 mg capsule,delayed release(DR/EC) 30 mg PO QAM Xifaxan 550 mg tablet 550 mg PO AMHS zinc 50 mg Capsule 50 mg PO QAM Referrals Referrals: Francisco Cisse MD [Primary Care Provider] -
[2024-02-02 22:55] LABS: Hematocrit (blood only) 25.1 % (42.0-52.0); Hemoglobin 7.9 g/dl (14.0-18.0); Mean Corpuscular Hgb Conc 31.5 g/dL (32.0-36.0); Mean Corpuscular Volume 98.4 fL (80.0-100.0); Mean Platelet Volume 12.2 fL (9.4-12.4); Nucleated RBC # (auto) 0.02 K/uL (0.00-0.12); Nucleated RBC % (auto) 0.5 %; Platelet Count 67 K/uL (130-400); RDW Coefficient of Variation 20.6 % (11.5-14.5); RDW Standard Deviation 68.1 fL (36.4-46.3); Red Blood Count 2.55 M/uL (4.70-6.10); White Blood Count 4.02 K/ul (4.8-10.8)
[2024-02-02 23:11] LABS: Albumin Globulin Ratio 0.8 (0.9-2); Albumin Level 2.7 gm/dl (3.4-5.0); Anisocytosis Present; BUN Creatinine Ratio 24.6 (10-20); Basophils # (auto) 0.02 K/uL (0.00-0.20); Basophils % (auto) 0.5 %; Bilirubin,Total 2.3 mg/dl (0.2-1.0); Creatinine Clr Calc Pharmacy 52.3 ml/min; Eosinophils # (auto) 0.15 K/uL (0.00-0.50); Eosinophils % (auto) 3.7 %; Est GFR (African American) 62.7 ml/min; Est GFR (Non-African American) 54.1 ml/min; Globulin 3.4 gm/dl (2.5-4.0); Immature Granulocytes # (auto) 0.05 K/uL (0.01-0.20); Immature Granulocytes % (auto) 1.2 %; Lymphocytes # (auto) 0.63 K/uL (1.20-3.40); Lymphocytes % (auto) 15.7 %; Monocytes # (auto) 0.21 K/uL (0.11-0.59); Monocytes % (auto) 5.2 %; Neutrophils # (auto) 2.96 K/uL (1.40-6.50); Neutrophils % (auto) 73.7 %; Potassium 5.6 mmol/L (3.5-5.1); Tear Drop Cells 1+; Total Protein 6.1 gm/dl (6.0-8.3)
[2024-02-02 23:18] LABS: INR 1.2 (0.9-1.1); Partial Thromboplastin Time 29 Seconds (21-31); Prothrombin Time 12.6 Seconds (9.0-12.0)
[2024-02-02 23:19] LABS: Troponin I High Sensitivity 7.8 pg/ml (0-20)
[2024-02-02] MEDS: rifAXIMin 550 MG TABLET PO SCH (23:56)
[2024-02-02] MEDS: PANTOprazole 40 MG TAB PO STA (23:56)
[2024-02-03] MEDS: LANTUS PER UNIT CHARGE SQ STA (00:55)
--- NOTE | 2024-02-03 01:23 | History & Physical Report ---
Date of Service February 03, 2024 Assessment & Plan (1) Hematuria: Plan: 73-year-old male with past medical history significant for type 2 diabetes, restrictive lung disease, hyperlipidemia, chronic gout, pulmonary hypertension, gout, esophageal varices, portal vein thrombosis, prolonged QT, mild mitral regurgitation, aortic valve sclerosis, cirrhosis of liver status post TIPS, GERD, hepatocellular carcinoma s/p embolization, prostate cancer s/p radiation, radiation proctitis, protein calorie malnutrition, chronic kidney stage III,history of gross hematuria, acquired thrombocytopenia, iron deficiency anemia, CKD stage III, pancytopenia, psoriasis comes because of hematuria, abdominal pain, chest pain and shortness of breath. Patient was recently in the hospital for shortness of breath and chest pain thought to be from symptomatic anemia,Hemoglobin was 6.6 status post 3 units of PRBCs during that admission. Hematuria thought to be from radiation cystitis. He was discharged on January 27, 2024. 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 Today patient had abdominal pain and had hematuria. And also had chest pain and shortness of breath and his son brought him to the hospital. Currently chest pain and shortness resolved. Abdominal pain resolved. Patient's bladder was irrigated in the ER and seems some clots came out. Currently resting comfortably. Denies any fevers. No headache. No runny nose or sore throat. No cough. Hemodynamically stable. Lives with his . Ambulates with walker. Gross hematuria Anemia Abdominal pain Recently had prostate procedure History of radiation cystitis Abdominal pain improved after bladder irrigation and clots coming out Hemoglobin 7.9. Hemoglobin was 8.6 on discharge on January 27 Blood consent obtained Bladder irrigation as needed Will follow H&H Urology consult in a.m. for further recommendations Chest pain and shortness of breath Currently resolved Similar presented in the recent past EKG and troponin okay We will follow serial cardiac enzymes Telemetry Diabetes type 2 Hyperglycemia Continue Lantus as patient is n.p.o. Sliding scale Close monitor Hyperkalemia 5.6 on presentation 4.5 in am labs follow labs Elevated lactic acid We will follow repeat levels repeat lactic acid 1.4 Elevated LFTs Seems chronic We will follow repeat labs Liver cirrhosis S/p TIPS History of GAVE/esophageal varices/portal hypertensive gastropathy Continue home Lasix, lactulose and Xifaxan and Protonix History of prostate cancer S/p radiation BPH On Proscar History of hepatocellular carcinoma S/p IR embolization Possible recurrence on recent imaging Needs follow-up History of portal vein thrombus DVT prophylaxis SCDs Disposition Med/tele Full code History of Present Illness Chief Complaint: Hematuria, abdominal pain and chest pain Primary Care Provider: Francisco Cisse MD 73-year-old male with past medical history significant for type 2 diabetes, restrictive lung disease, hyperlipidemia, chronic gout, pulmonary hypertension, gout, esophageal varices, portal vein thrombosis, prolonged QT, mild mitral regurgitation, aortic valve sclerosis, cirrhosis of liver status post TIPS, GERD, hepatocellular carcinoma s/p embolization, prostate cancer s/p radiation, radiation proctitis, protein calorie malnutrition, chronic kidney stage III,history of gross hematuria, acquired thrombocytopenia, iron deficiency anemia, CKD stage III, pancytopenia, psoriasis comes because of hematuria, abdominal pain, chest pain and shortness of breath. Patient was recently in the hospital for shortness of breath and chest pain thought to be from symptomatic anemia,Hemoglobin was 6.6 status post 3 units of PRBCs during that admission. Hematuria thought to be from radiation cystitis. He was discharged on January 27, 2024. 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 Today patient had abdominal pain and had hematuria. And also had chest pain and shortness of breath and his son brought him to the hospital. Currently chest pain and shortness resolved. Abdominal pain resolved. Patient's bladder was irrigated in the ER and seems some clots came out. Currently resting comfortably. Denies any fevers. No headache. No runny nose or sore throat. No cough. Hemodynamically stable. Lives with his . Ambulates with walker Past medical history. As mentioned above Past surgical history. Bilateral cataract surgery. Colonoscopy. Cystoscopy. EGD. IR cancer embolization. TIPS. Tonsillectomy. Sigmoidoscopy. TIPS revision. Family history. . No smoking. No alcohol use. No drug use. Social history. Father alcoholism. Colon cancer. Psoriasis. Mother had lung cancer. Daughter had cervical cancer. Daughter had thyroid cancer. Daughter had uterine cancer. Brother had heart disease. Brother had pancreatic cancer. Allergies Allergy/AdvReac Type Severity Reaction Status Date / Time No Known Allergies Allergy Mild Verified 02/03/24 00:09 Home Medications Medication Instructions Recorded Confirmed Type allopurinol 100 mg tablet 200 mg PO QAM 05/16/20 02/02/24 History finasteride 5 mg tablet 5 mg PO QAM 11/03/21 02/02/24 History furosemide 20 mg tablet (Lasix) 40 mg PO QAM 11/02/22 02/02/24 History insulin glargine 100 unit/mL 27 unit subcut QPM 11/05/22 02/02/24 History subcutaneous solution (Lantus U-100 Insulin) acetaminophen 325 mg tablet 650 mg PO Q8H PRN Fever Or Pain 02/24/23 02/02/24 History (Tylenol) Lactobacil.acidophilus-Bifido.animalis 1 cap PO QAM 05/17/23 02/03/24 History 5 billion cell sprinkle capsule (Probiotic) acetylcysteine 600 mg capsule 1,200 mg PO QAM 05/17/23 02/02/24 History ferrous sulfate 325 mg (65 mg 650 mg PO QAM 05/17/23 02/02/24 History iron) tablet (iron) zrkpcpbpyoam-dbv-dygek acid-vit 1 tab PO DAILY 05/17/23 02/03/24 History K-lycop 400 mcg-20 mcg-370 mcg tablet (Men's 50 Plus Multivitamin) metoclopramide HCl 5 mg tablet 5 mg PO TID PRN Nausea 09/21/23 02/02/24 History mirtazapine 30 mg tablet (Remeron) 30 mg PO HS 09/21/23 02/03/24 History lactulose 10 gram oral packet 10 g PO BID #15 ea 09/23/23 02/03/24 Rx (Kristalose) duloxetine 30 mg capsule,delayed 30 mg PO QAM 02/02/24 02/02/24 History release pantoprazole 40 mg tablet,delayed 40 mg PO AMPM 02/02/24 02/02/24 History release rifaximin 550 mg tablet (Xifaxan) 550 mg PO AMHS 02/02/24 02/02/24 History tramadol 50 mg tablet 50 mg PO Q6 PRN pain,severe 02/02/24 02/02/24 History zinc 50 mg capsule 50 mg PO QAM 02/03/24 02/03/24 History Past Med/Surg History Medical History Atypical chest pain Radiation cystitis Encounter for pre-operative examination History of blood transfusion 11/2022 Hepatocellular carcinoma Spinal fracture of T12 vertebra History of recent hospitalization 06/2023 [facility] hepatic encephalopathy Insulin dependent type 2 diabetes mellitus Liver spots Under surveillance, stable per patient Anxiety and depression 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 Anemia of chronic disease under surveillance Prostate cancer Hx radiation History of panic attacks Gout No current issues GERD (gastroesophageal reflux disease) GAVE (gastric antral vascular ectasia) CKD (chronic kidney disease) stage 3, GFR 30-59 ml/min Hypertension Hx Esophageal varices EGD 05/22/23 ([facility]): Grade 1 varices in distal esophagus without high risk stigmata Upper GI bleed Hx Psoriasis Surgical History History of left cataract surgery History of right cataract surgery History of prostate biopsy malignant S/P TIPS (transjugular intrahepatic portosystemic shunt) History of esophagogastroduodenoscopy (EGD) Most recent 05/2023 [facility] History of colonoscopy with polypectomy History of tonsillectomy and adenoidectomy History of abdominal paracentesis Multiple, most recent 01/2023 Family History Father , "3/4 liver gone due to drinking" Colorectal cancer, Onset Age: 63 Mother Lung cancer Daughter Cancer cervical and thyroid cancers Ovarian cancer Other No family history of adverse response to anesthesia 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 Smoking Status: Never smoker Second Hand Exposure: No; Do You Dip or Chew Tobacco: No; Tobacco Cessation Education Requested by Patient: No Hx Alcohol Use: No Hx Substance Use: No Preferred Language: Sami Communication Ability: Effective Visual Impairment: No Limitations Hearing Ability: Normal Rewinder Required: No Beliefs That Will Affect Care: None marital status: Current Living Situation: Spouse Current Living Situation Comment: 1 level single family home 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 How many Children do You have: 6 How many Children do You have Comment: one , eldest daughter in her sleep from seizure disorder Other Information That Helps Us Care for You: No Feels Safe at Home: Yes Safety Concerns: Feels Safe At This Time Childhood Exposure to Second-Hand Smoke: Yes Diet Comment: "I watch my sugar, average fasting is 140 mg/dl" caffeine: Yes (cola, sugar free, decaf) during the past year weight has: remained stable Dental Care, Regularly: No Physical Activity Frequency: Does not Exercise Seatbelt Use: always Sunscreen Use: Yes Assistive Devices: Oxygen - at Night and Walker Review of Systems Review of Systems: All systems reviewed & are unremarkable except as noted in HPI & below Physical Exam Physical Exam: General- Not in distress Head- atraumatic Eyes- PERRL. ENT- oropharynx clear Neck- supple, no JVD. Lungs- clear to auscultation no wheezing or crackles. Heart- regular rate and rhythm; no murmur, no gallop. Abdomen- normal bowel sounds, soft, nontender, no distension. Extremities- no pretibial edema, no erythema seen Neuro- alert, oriented PERRL, no facial palsy; no dysarthria; moves extremities. Skin. Psoriatic rash seen in the extremities and trunk region Results & Data Results & Data Vital Signs (Past 12 Hours) Vital Signs Temp Pulse Pulse Resp BP BP Pulse Ox 02/03/24 01:00 66 14 155/58 H 98 02/02/24 23:50 65 20 173/74 H 100 02/02/24 23:09 66 15 162/59 H 98 02/02/24 22:13 98 02/02/24 22:11 66 14 148/65 H 98 02/02/24 22:11 67 17 98 02/02/24 22:10 71 02/02/24 21:28 36.5 C 69 16 149/82 H 98 O2 Del Method 02/03/24 01:00 Room Air 02/02/24 23:50 Room Air 02/02/24 23:09 Room Air 02/02/24 22:13 Room Air 02/02/24 22:11 Room Air 02/02/24 22:11 Room Air 02/02/24 22:10 02/02/24 21:28 Room Air Diagnostic Findings Laboratory Results WBC 4.02 K/ul (4.8-10.8) L 02/02/24 22:35 RBC 2.55 M/uL (4.70-6.10) L 02/02/24 22:35 Hgb 7.9 g/dl (14.0-18.0) L 02/02/24 22:35 Hct 25.1 % (42.0-52.0) L 02/02/24 22:35 MCV 98.4 fL (80.0-100.0) 02/02/24 22:35 MCH 31.0 pg (25.0-34.0) 02/02/24 22:35 MCHC 31.5 g/dL (32.0-36.0) L 02/02/24 22:35 RDW Std Deviation 68.1 fL (36.4-46.3) H 02/02/24 22:35 RDW Coeff of [place] 20.6 % (11.5-14.5) H 02/02/24 22:35 Plt Count 67 K/uL (130-400) L 02/02/24 22:35 MPV 12.2 fL (9.4-12.4) 02/02/24 22:35 Immature Gran % (Auto) 1.2 % 02/02/24 22:35 Neut % (Auto) 73.7 % 02/02/24 22:35 Lymph % (Auto) 15.7 % 02/02/24 22:35 [place] % (Auto) 5.2 % 02/02/24 22:35 Eos % (Auto) 3.7 % 02/02/24 22:35 Baso % (Auto) 0.5 % 02/02/24 22:35 Neut # (Auto) 2.96 K/uL (1.40-6.50) 02/02/24 22:35 Lymph # (Auto) 0.63 K/uL (1.20-3.40) L 02/02/24 22:35 [place] # (Auto) 0.21 K/uL (0.11-0.59) 02/02/24 22:35 Eos # (Auto) 0.15 K/uL (0.00-0.50) 02/02/24 22:35 Baso # (Auto) 0.02 K/uL (0.00-0.20) 02/02/24 22:35 Immature Gran # (Auto) 0.05 K/uL (0.01-0.20) 02/02/24 22:35 Absolute Nucleated RBC 0.02 K/uL (0.00-0.12) 02/02/24 22:35 Nucleated RBC % (auto) 0.5 % 02/02/24 22:35 Anisocytosis Present 02/02/24 22:35 Tear Drop Cells 1+ 02/02/24 22:35 PT 12.6 Seconds (9.0-12.0) H 02/02/24 22:35 INR 1.2 (0.9-1.1) H 02/02/24 22:35 APTT 29 Seconds (21-31) 02/02/24 22:35 PTT Ratio 1.0 02/02/24 22:35 Sodium 138 mmol/L (136-145) 02/02/24 22:35 Potassium 5.6 mmol/L (3.5-5.1) H 02/02/24 22:35 Chloride 110 mmol/L (98-107) H 02/02/24 22:35 Carbon Dioxide 25 mmol/L (21-32) 02/02/24 22:35 Anion Gap 3 (3-11) 02/02/24 22:35 BUN 32 mg/dl (6-23) H 02/02/24 22:35 Creatinine 1.30 mg/dl (0.6-1.4) 02/02/24 22:35 Est Cr Clr Drug Dosing 52.3 ml/min 02/02/24 22:35 Est GFR ( Amer) 62.7 ml/min 02/02/24 22:35 Est GFR (Non-Af Amer) 54.1 ml/min 02/02/24 22:35 BUN/Creatinine Ratio 24.6 (10-20) H 02/02/24 22:35 Glucose 351 mg/dl (70-99(Fasting)) H* 02/02/24 22:35 Lactate 2.1 mmol/L (0.4-2.0) H* 02/02/24 Unknown Calcium 8.0 mg/dl (8.6-10.3) L 02/02/24 22:35 Total Bilirubin 2.3 mg/dl (0.2-1.0) H 02/02/24 22:35 AST 42 U/L (13-39) H 02/02/24 22:35 ALT 22 U/L (7-52) 02/02/24 22:35 Alkaline Phosphatase 167 U/L (34-104) H 02/02/24 22:35 Troponin I High Sens 7.8 pg/ml (0-20) 02/02/24 22:35 Total Protein 6.1 gm/dl (6.0-8.3) 02/02/24 22:35 Albumin 2.7 gm/dl (3.4-5.0) L 02/02/24 22:35 Globulin 3.4 gm/dl (2.5-4.0) 02/02/24 22:35 Albumin/Globulin Ratio 0.8 (0.9-2) L 02/02/24 22:35 SARS-CoV-2, RNA, NAAT NEGATIVE (NEGATIVE) 02/02/24 22:20 Blood Type O Positive 02/02/24 22:37 Antibody Screen NEGATIVE 02/02/24 22:37 ECG Additional Comments: ECG. Normal sinus rhythm with rate of 67. No significant change was found. Code Status & VTE Plan VTE Prophylaxis Plan VTE Prophylaxis will be ordered: Yes (1) Hematuria Hematuria type: gross Qualified Code(s): R31.0 - Gross hematuria
[2024-02-03 01:57] LABS: Appearance Urine Cloudy (Clear); Bilirubin Urine 1+ (Negative); Blood Urine 3+ (Negative); Color Urine Red; Glucose Urine UA Trace (Negative); Ketones Urine Negative (Negative); Leukocyte Esterase Urine Negative (Negative); Nitrite Urine Negative (Negative); Protein Urine 3+ (Negative); Specific Gravity Urine 1.025 (1.000-1.030); Urobilinogen Urine Negative (Negative); pH Urine 6.5 (4.5-7.5)
[2024-02-03 02:00] LABS: Epithelial Cell Urine 0-5 /lpf (0-5)
[2024-02-03 02:01] LABS: Bacteria Urine Negative (Negative); RBC Urine >30 /hpf (0-4); WBC Urine 0-5 /hpf (0-5)
[2024-02-03] MEDS ORDERED: NITROGLYCERIN SL 0.4 MG/TAB TAB SL PRN (02:36)
[2024-02-03] MEDS ORDERED: POLYETHYLENE (MIRALAX) 17 GM PACK PO PRN (02:36)
[2024-02-03] MEDS: SODIUM CHLORIDE 0.9% 1,000 ML IV SCH (03:00)
[2024-02-03] MEDS: PANTOprazole 40 MG TAB PO SCH (03:14)
[2024-02-03 06:14] LABS: Basophils # (auto) 0.01 K/uL (0.00-0.20); Basophils % (auto) 0.3 %; Eosinophils # (auto) 0.25 K/uL (0.00-0.50); Eosinophils % (auto) 6.6 %; Hematocrit (blood only) 24.4 % (42.0-52.0); Hemoglobin 7.7 g/dl (14.0-18.0); Immature Granulocytes # (auto) 0.04 K/uL (0.01-0.20); Immature Granulocytes % (auto) 1.1 %; Lymphocytes # (auto) 0.68 K/uL (1.20-3.40); Mean Corpuscular Hemoglobin 30.8 pg (25.0-34.0); Mean Corpuscular Hgb Conc 31.6 g/dL (32.0-36.0); Mean Corpuscular Volume 97.6 fL (80.0-100.0); Mean Platelet Volume 12.6 fL (9.4-12.4); Monocytes # (auto) 0.18 K/uL (0.11-0.59); Monocytes % (auto) 4.8 %; Neutrophils # (auto) 2.61 K/uL (1.40-6.50); Neutrophils % (auto) 69.2 %; Nucleated RBC # (auto) 0.02 K/uL (0.00-0.12); Nucleated RBC % (auto) 0.5 %; Platelet Count 80 K/uL (130-400); RDW Coefficient of Variation 20.8 % (11.5-14.5); RDW Standard Deviation 70.3 fL (36.4-46.3); White Blood Count 3.77 K/ul (4.8-10.8)
[2024-02-03 06:25] LABS: Calcium 7.8 mg/dl (8.6-10.3); Creatinine Clr Calc Pharmacy 55.7 ml/min; Est GFR (African American) 67.7 ml/min; Est GFR (Non-African American) 58.5 ml/min; Magnesium 1.6 mg/dl (1.7-2.4); Potassium 4.5 mmol/L (3.5-5.1)
[2024-02-03 06:31] LABS: Troponin I High Sensitivity 7.6 pg/ml (0-20)
[2024-02-03 06:36] LABS: Basophilic Stippling 1+; Polychromasia 1+; Tear Drop Cells 1+
--- NOTE | 2024-02-03 06:54 | XRay Report ---
XR chest 1V portable CLINICAL HISTORY: sob TECHNIQUE: Single frontal radiograph of the chest was obtained. Comparison: Comparison is made to chest radiograph 01/25/2024 FINDINGS: No lines and tubes are seen. The cardiomediastinal silhouette is normal. The lungs are clear. No evid ence of pleural effusion or pneumothorax. IMPRESSION: Cardiomegaly without acute abnormality. Previously noted pulmonary vascular congestion has resolved. ACT 112: Negative or not required by law. Electronically signed by: Arik Flowers M.D. 02/03/2024 6:53 AM
[2024-02-03] MEDS: MAGNESIUM SULFATE / D5W 1 GM/100 ML BAG IV SCH (07:54)
[2024-02-03] MEDS: ZINC SULFATE 220 MG CAPSULE PO SCH (07:58)
[2024-02-03] MEDS: rifAXIMin 550 MG TABLET PO SCH (07:58)
[2024-02-03] MEDS: FERROUS SULFATE 325 MG TAB PO SCH (07:59)
[2024-02-03] MEDS: ACETYLCYSTEINE 600 MG CAP PO SCH (07:59)
[2024-02-03] MEDS: FINASTERIDE 5 MG TAB PO SCH (07:59)
[2024-02-03] MEDS: allopurinoL 100 MG TAB PO SCH (07:59)
[2024-02-03] MEDS: FUROSEMIDE 40 MG TAB PO SCH (07:59)
[2024-02-03] MEDS: DULoxetine HCL 30 MG CAP PO SCH (07:59)
[2024-02-03] MEDS: LACTULOSE SYRUP 20 GM/30 ML UDC PO SCH (08:05)
--- NOTE | 2024-02-03 08:09 | Urology Consultation ---
Date of Consultation February 03, 2024 Assessment & Plan (1) Hematuria: Plan 73-year-old male with a history of prostate cancer status post radiation treatment. He follows with Dr. Peraza of [facility] urology. 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 He is s/p urological procedure last 01/30/24 with his primary urologist. He presented to the ED 02/02/24 due to hematuria and bladder pain. Urology consulted for hematuria. He is afebrile and hemodynamically stable. Lab work reviewed - WBC 3.77, hemoglobin 7.7, creatinine 1.22. Urinalysis with 3+ blood, negative LE, negative bacteria, negative nitrite Mendoza draining light red urine without clot. Continue to monitor. No urologic intervention indicated at this time. Maintain Mendoza catheter. Ok to hand irrigate as needed for clots, retention, suprapubic pain. Continue supportive care and management per primary team. Continue to trend labs. Urology will follow. Update- Contacted by nursing as patient was having suprapubic discomfort. Nursing has been able to hand irrigate catheter without difficulty. Will check a renal ultrasound given pain and hematuria. Urology will follow. Plan of care reviewed with Dr. Ellis, on-call urologist. History of Present Illness Attending Physician: Lei Tapia MD History of Present Illness 73-year-old male with a history of prostate cancer status post radiation treatment. He follows with Dr. Peraza of [facility] urology. Pt was recently admitted for shortness of breath and chest pain thought to be from symptomatic anemia. Hemoglobin was 6.6 s/p 3 units of PRBCs during that admission. He was discharged on 01/27/24. Per chart review, he underwent recent urological procedure with Dr. Peraza of [facility] urology on 01/30/2024. He returned to the ED 02/02/24 with abdominal pain and hematuria. On arrival he was afebrile and hemodynamically stable. Labs showing a WBC of 4.02, hemoglobin 7.9, creatinine 1.22. Urinalysis with 3+ blood, negative LE, negative bacteria, negative nitrite. Nursing has been hand irrigating the mendoza catheter as needed. No imaging was done. Urology was consulted due to hematuria. Patient examined at bedside in the ED this morning. Asleep on arrival, awakened to name. Mendoza draining light red urine. No clots visible at time of exam. Patient reported his lower abdominal pain has improved. Denied any significant pain or discomfort at present. Denied f/c/n/v. Allergies Allergy/AdvReac Type Severity Reaction Status Date / Time No Known Allergies Allergy Mild Verified 02/03/24 00:09 Home Medications Medication Instructions Recorded Confirmed Type allopurinol 100 mg tablet 200 mg PO QAM 05/16/20 02/02/24 History finasteride 5 mg tablet 5 mg PO QAM 11/03/21 02/02/24 History furosemide 20 mg tablet (Lasix) 40 mg PO QAM 11/02/22 02/02/24 History insulin glargine 100 unit/mL 27 unit subcut QPM 11/05/22 02/02/24 History subcutaneous solution (Lantus U-100 Insulin) acetaminophen 325 mg tablet 650 mg PO Q8H PRN Fever Or Pain 02/24/23 02/02/24 History (Tylenol) Lactobacil.acidophilus-Bifido.animalis 1 cap PO QAM 05/17/23 02/03/24 History 5 billion cell sprinkle capsule (Probiotic) acetylcysteine 600 mg capsule 1,200 mg PO QAM 05/17/23 02/02/24 History ferrous sulfate 325 mg (65 mg 650 mg PO QAM 05/17/23 02/02/24 History iron) tablet (iron) ajxgdycpftfx-npn-vmglz acid-vit 1 tab PO DAILY 05/17/23 02/03/24 History K-lycop 400 mcg-20 mcg-370 mcg tablet (Men's 50 Plus Multivitamin) metoclopramide HCl 5 mg tablet 5 mg PO TID PRN Nausea 09/21/23 02/02/24 History mirtazapine 30 mg tablet (Remeron) 30 mg PO HS 09/21/23 02/03/24 History lactulose 10 gram oral packet 10 g PO BID #15 ea 09/23/23 02/03/24 Rx (Kristalose) duloxetine 30 mg capsule,delayed 30 mg PO QAM 02/02/24 02/02/24 History release pantoprazole 40 mg tablet,delayed 40 mg PO AMPM 02/02/24 02/02/24 History release rifaximin 550 mg tablet (Xifaxan) 550 mg PO AMHS 02/02/24 02/02/24 History tramadol 50 mg tablet 50 mg PO Q6 PRN pain,severe 02/02/24 02/02/24 History zinc 50 mg capsule 50 mg PO QAM 02/03/24 02/03/24 History Patient History Medical History Atypical chest pain Radiation cystitis Encounter for pre-operative examination History of blood transfusion 11/2022 Hepatocellular carcinoma Spinal fracture of T12 vertebra History of recent hospitalization 06/2023 [facility] hepatic encephalopathy Insulin dependent type 2 diabetes mellitus Liver spots Under surveillance, stable per patient Anxiety and depression 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 Anemia of chronic disease under surveillance Prostate cancer Hx radiation History of panic attacks Gout No current issues GERD (gastroesophageal reflux disease) GAVE (gastric antral vascular ectasia) CKD (chronic kidney disease) stage 3, GFR 30-59 ml/min Hypertension Hx Esophageal varices EGD 05/22/23 ([facility]): Grade 1 varices in distal esophagus without high risk stigmata Upper GI bleed Hx Psoriasis Surgical History History of left cataract surgery History of right cataract surgery History of prostate biopsy malignant S/P TIPS (transjugular intrahepatic portosystemic shunt) History of esophagogastroduodenoscopy (EGD) Most recent 05/2023 [facility] History of colonoscopy with polypectomy History of tonsillectomy and adenoidectomy History of abdominal paracentesis Multiple, most recent 01/2023 Family History Father , "3/4 liver gone due to drinking" Colorectal cancer, Onset Age: 63 Mother Lung cancer Daughter Cancer cervical and thyroid cancers Ovarian cancer Other No family history of adverse response to anesthesia 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 Smoking Status: Never smoker Second Hand Exposure: No; Do You Dip or Chew Tobacco: No; Tobacco Cessation Education Requested by Patient: No Hx Alcohol Use: No Hx Substance Use: No Preferred Language: Italian Communication Ability: Effective Visual Impairment: No Limitations Hearing Ability: Normal Lead Blender Required: No Beliefs That Will Affect Care: None marital status: Current Living Situation: Spouse Current Living Situation Comment: 1 level single family home 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 How many Children do You have: 6 How many Children do You have Comment: one , eldest daughter in her sleep from seizure disorder Other Information That Helps Us Care for You: No Feels Safe at Home: Yes Safety Concerns: Feels Safe At This Time Childhood Exposure to Second-Hand Smoke: Yes Diet Comment: "I watch my sugar, average fasting is 140 mg/dl" caffeine: Yes (cola, sugar free, decaf) during the past year weight has: remained stable Dental Care, Regularly: No Physical Activity Frequency: Does not Exercise Seatbelt Use: always Sunscreen Use: Yes Assistive Devices: Oxygen - at Night and Walker Review of Systems Review of Systems: All systems reviewed & are unremarkable except as noted in HPI & below Physical Exam Constitutional: no acute distress Neck: normal visual inspection Respiratory: no respiratory distress and no labored breathing Gastrointestinal (Abdomen): Percussion/Palpation: abdomen soft; abdomen nontender Musculoskeletal: Head/Neck/Chest: normocephalic Neurologic: awake Psychiatric: Orientation: alert and oriented x 3 Genitourinary: Mendoza draining light red urine without clot Results & Data Vital Signs (Past 12 Hours) Vital Signs Temp Pulse Pulse Resp BP BP Pulse Ox 02/03/24 07:34 68 02/03/24 03:16 73 21 153/56 H 98 02/03/24 02:36 68 14 192/77 H 99 02/03/24 02:36 02/03/24 02:00 68 02/03/24 01:00 66 14 155/58 H 98 02/02/24 23:50 65 20 173/74 H 100 02/02/24 23:09 66 15 162/59 H 98 02/02/24 22:13 98 02/02/24 22:11 66 14 148/65 H 98 02/02/24 22:11 67 17 98 02/02/24 22:10 71 02/02/24 21:28 36.5 C 69 16 149/82 H 98 Pulse Ox O2 Del Method O2 Del Method 02/03/24 07:34 02/03/24 03:16 Room Air 02/03/24 02:36 Room Air 02/03/24 02:36 99 Room Air 02/03/24 02:00 02/03/24 01:00 Room Air 02/02/24 23:50 Room Air 02/02/24 23:09 Room Air 02/02/24 22:13 Room Air 02/02/24 22:11 Room Air 02/02/24 22:11 Room Air 02/02/24 22:10 02/02/24 21:28 Room Air PG Care Time/CCT Total # of Minutes Spent Total Time Spent with Patient: Total time spent is greater than 50% in coordination of care (as documented) at patient's floor/unit and/or counseling patient: Coding Level of Care Code 63326 INT INP/OBS CARE 2/55MIN Diagnoses Gross hematuria R31.0 Hematuria type: gross (1) Hematuria Hematuria type: gross Qualified Code(s): R31.0 - Gross hematuria
--- NOTE | 2024-02-03 08:21 | Electrocardiogram Report ---
Test Reason : Blood Pressure : / mmHG Vent. Rate : 067 BPM Atrial Rate : 067 BPM P-R Int : 180 ms QRS Dur : 088 ms QT Int : 428 ms P-R-T Axes : 038 -01 063 degrees QTc Int : 452 ms Normal sinus rhythm Normal ECG When compared with ECG of 25-JAN-2024 05:06, No significant change was found Confirmed by Pedro Carlson ([id number]) on 02/03/2024 8:20:54 AM Referred By: REFERRED SELF Confirmed By:Pedro Carlson
[2024-02-03] MEDS ORDERED: MULTIVIT MIN FOLIC VIT K LYCOP PO SCH (09:00)
[2024-02-03] MEDS ORDERED: NON-FORMULARY MEDICATION (L. Acidophilus/Bifid. Animalis [Probiotic] 5 billion cell Capsul PO SCH (09:00)
[2024-02-03] MEDS ORDERED: [UNRECOGNIZED DRUG - OTHER] PO SCH (09:00)
[2024-02-03 11:29] LABS: Hematocrit (blood only) 23.6 % (42.0-52.0); Hemoglobin 7.7 g/dl (14.0-18.0)
[2024-02-03] MEDS: traMADol HCL 50 MG TABLET PO PRN (13:35)
[2024-02-03] MEDS: METOCLOPRAMIDE HCL 5 MG TABLET PO PRN (13:35)
[2024-02-03] MEDS: ACETAMINOPHEN 325 MG TAB PO PRN (15:24)
--- NOTE | 2024-02-03 15:29 | Ultrasound Report ---
ULTRASOUND KIDNEYS AND BLADDER CLINICAL HISTORY: Gross hematuria. COMPARISON STUDY: Abdominal CT dated 12/12/2023. TECHNIQUE: Real-time, grayscale, and color flow sonography of the kidneys and bladder is performed. I mages are reviewed in the transverse and longitudinal planes. FINDINGS: Kidneys: The kidneys demonstrate mild cortical atrophy. Echotexture is normal. The right kidney measu res 9.3 x 4.5 x 5.1 cm and the left kidney measures 10.3 x 5.6 x 5.1 cm. There is no hydronephrosis. No shadowing renal calculi are identified. There is no sonographic evidence of contour deforming sixto al mass lesion. No perinephric fluid is identified. Bladder: The bladder is decompressed around a Kan catheter and could not be evaluated. Upper abdomen: The liver is cirrhotic in morphology and heterogeneous in echotexture. Perihepatic asc ites is noted. IMPRESSION: 1. The kidneys demonstrate cortical atrophy and are without hydronephrosis. 2. The bladder was decompressed around a Kan catheter and could not be assessed. 3. Cirrhosis and ascites. ACT 112: Negative or not required by law. Electronically signed by: Scott Yepez M.D. 02/03/2024 3:28 PM
--- NOTE | 2024-02-03 15:30 | Nephrology Consultation ---
Date of Consultation February 03, 2024 Assessment & Plan (1) Hyperkalemia: he had slight elevated potassium of 5.6 in the setting of hyperglycemia with a glucose 351. However this morning his potassium is normal kidney function is at baseline. glucose is now much acceptable admission hyperkalemia related with potassium shift in the setting of hyperglycemia. Make sure to have steady blood glucose of at least less than 250 to avoid this no further workup needed. will sign off please call us if new issues (2) Hematuria: now status post Kan. Complicated urological history in the recent past reviewed in detail. Urology is following the patient History of Present Illness Reason for Consultation: Hyperkalemia Attending Physician: Lei Tapia MD History of Present Illness 73/M with type 2 diabetes, CKD 3 baseline creat around 1.1 to 1.3. Very extensive problem lists--- restrictive lung disease, hyperlipidemia, chronic gout, pulmonary hypertension, gout, esophageal varices, portal vein thrombosis, prolonged QT, mild mitral regurgitation, aortic valve sclerosis, cirrhosis of liver status post TIPS, GERD, hepatocellular carcinoma s/p embolization, prostate cancer s/p radiation, radiation proctitis, protein calorie malnutrition,history of gross hematuria, acquired thrombocytopenia, iron deficiency anemia. he presented because of gross hematuria and some Abd pain. Patient was recently in the hospital for shortness of breath and chest pain thought to be from symptomatic anemia. Hemoglobin was 6.6 status post 3 units of PRBCs during that admission. Hematuria thought to be from radiation cystitis. He was discharged on January 27, 2024. Prior outpatient urology office cystoscopy showed radiation cystitis versus possible early urothelial malignancy and patient followed up with urology and had transurethral resection of middle lobe of prostate bladder neck biopsy and f ulguration on January 30, 2024 and postop diagnosis shows apparent radiation cystitis of bladder neck without yannick tumor and pathology is pending. Urology have already seen the patient earlier today for Bladder issues. Admission K was high at 5.6 but in the setting of high glucose of 333. Now it is normal. Not much gross hematuria now. Review of systems----- 12 systems reviewed and negative. at this point he just feels weak and tired. No gross hematuria or abdominal pain physical examination awake alert oriented x3 normal speech but very sleepy and weak mucous membrane is moist neck is supple no JVD chest is bilateral clear to auscultation CVS S1 and S2 regular no murmur rub or gallop heard abdomen is soft nontender extremities shows no edema musculoskeletal normal strength all 4 extremities neurological moving all 4 extremities normal speech no focal deficit skin no obvious rash noted Allergies Allergy/AdvReac Type Severity Reaction Status Date / Time No Known Allergies Allergy Mild Verified 02/03/24 00:09 Home Medications Medication Instructions Recorded Confirmed Type allopurinol 100 mg tablet 200 mg PO QAM 05/16/20 02/02/24 History finasteride 5 mg tablet 5 mg PO QAM 11/03/21 02/02/24 History furosemide 20 mg tablet (Lasix) 40 mg PO QAM 11/02/22 02/02/24 History insulin glargine 100 unit/mL 27 unit subcut QPM 11/05/22 02/02/24 History subcutaneous solution (Lantus U-100 Insulin) acetaminophen 325 mg tablet 650 mg PO Q8H PRN Fever Or Pain 02/24/23 02/02/24 History (Tylenol) Lactobacil.acidophilus-Bifido.animalis 1 cap PO QAM 05/17/23 02/03/24 History 5 billion cell sprinkle capsule (Probiotic) acetylcysteine 600 mg capsule 1,200 mg PO QAM 05/17/23 02/02/24 History ferrous sulfate 325 mg (65 mg 650 mg PO QAM 05/17/23 02/02/24 History iron) tablet (iron) elgfcsimrqwa-obq-vfucb acid-vit 1 tab PO DAILY 05/17/23 02/03/24 History K-lycop 400 mcg-20 mcg-370 mcg tablet (Men's 50 Plus Multivitamin) metoclopramide HCl 5 mg tablet 5 mg PO TID PRN Nausea 09/21/23 02/02/24 History mirtazapine 30 mg tablet (Remeron) 30 mg PO HS 09/21/23 02/03/24 History lactulose 10 gram oral packet 10 g PO BID #15 ea 09/23/23 02/03/24 Rx (Kristalose) duloxetine 30 mg capsule,delayed 30 mg PO QAM 02/02/24 02/02/24 History release pantoprazole 40 mg tablet,delayed 40 mg PO AMPM 02/02/24 02/02/24 History release rifaximin 550 mg tablet (Xifaxan) 550 mg PO AMHS 02/02/24 02/02/24 History tramadol 50 mg tablet 50 mg PO Q6 PRN pain,severe 02/02/24 02/02/24 History zinc 50 mg capsule 50 mg PO QAM 02/03/24 02/03/24 History Patient History Medical History Atypical chest pain Radiation cystitis Encounter for pre-operative examination History of blood transfusion 11/2022 Hepatocellular carcinoma Spinal fracture of T12 vertebra History of recent hospitalization 06/2023 [facility] hepatic encephalopathy Insulin dependent type 2 diabetes mellitus Liver spots Under surveillance, stable per patient Anxiety and depression 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 Anemia of chronic disease under surveillance Prostate cancer Hx radiation History of panic attacks Gout No current issues GERD (gastroesophageal reflux disease) GAVE (gastric antral vascular ectasia) CKD (chronic kidney disease) stage 3, GFR 30-59 ml/min Hypertension Hx Esophageal varices EGD 05/22/23 ([facility]): Grade 1 varices in distal esophagus without high risk stigmata Upper GI bleed Hx Psoriasis Surgical History History of left cataract surgery History of right cataract surgery History of prostate biopsy malignant S/P TIPS (transjugular intrahepatic portosystemic shunt) History of esophagogastroduodenoscopy (EGD) Most recent 05/2023 [facility] History of colonoscopy with polypectomy History of tonsillectomy and adenoidectomy History of abdominal paracentesis Multiple, most recent 01/2023 Family History Father , "3/4 liver gone due to drinking" Colorectal cancer, Onset Age: 63 Mother Lung cancer Daughter Cancer cervical and thyroid cancers Ovarian cancer Other No family history of adverse response to anesthesia 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 Smoking Status: Never smoker Second Hand Exposure: No; Do You Dip or Chew Tobacco: No; Tobacco Cessation Education Requested by Patient: No Hx Alcohol Use: No Hx Substance Use: No Preferred Language: Lao Communication Ability: Effective Visual Impairment: No Limitations Hearing Ability: Normal Hr Operations Advisor Required: No Beliefs That Will Affect Care: None marital status: Current Living Situation: Spouse Current Living Situation Comment: 1 level single family home 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 How many Children do You have: 6 How many Children do You have Comment: one , eldest daughter in her sleep from seizure disorder Other Information That Helps Us Care for You: No Feels Safe at Home: Yes Safety Concerns: Feels Safe At This Time Childhood Exposure to Second-Hand Smoke: Yes Diet Comment: "I watch my sugar, average fasting is 140 mg/dl" caffeine: Yes (cola, sugar free, decaf) during the past year weight has: remained stable Dental Care, Regularly: No Physical Activity Frequency: Does not Exercise Seatbelt Use: always Sunscreen Use: Yes Assistive Devices: Oxygen - at Night and Walker Results & Data Vital Signs (Past 12 Hours) Vital Signs Temp Pulse Resp BP Pulse Ox 02/03/24 14:32 36.8 C 02/03/24 14:00 151/53 H 95 02/03/24 14:00 75 21 94 02/03/24 13:30 75 19 93 02/03/24 13:30 132/63 02/03/24 13:00 75 14 95 02/03/24 13:00 149/62 H 02/03/24 12:58 78 16 97 02/03/24 12:58 150/87 H 02/03/24 12:00 70 14 95 02/03/24 11:00 69 16 95 02/03/24 10:00 78 19 98 02/03/24 09:00 69 23 97 02/03/24 07:34 68 Laboratory Results reviewed Diagnostic Findings reviewed (2) Hematuria Hematuria type: gross Qualified Code(s): R31.0 - Gross hematuria
[2024-02-03] MEDS: PHENAZOPYRIDINE HCL 100 MG TAB PO SCH (17:12)
[2024-02-03] MEDS: oxyBUTYnin chloride 5 MG TAB PO SCH (17:13)
[2024-02-03 17:23] LABS: Hematocrit (blood only) 26.3 % (42.0-52.0); Hemoglobin 8.4 g/dl (14.0-18.0)
[2024-02-03] MEDS ORDERED: VANCOMYCIN CONSULT ACTIVE PRN (17:37)
--- NOTE | 2024-02-03 17:40 | CT Scan Report ---
ABDOMEN AND PELVIS CT WITHOUT CONTRAST CT DOSE: 1203.22 mGy.cm HISTORY: Acute generalized abdominal pain. abd pain, s/p urologic procedure TECHNIQUE: Multiaxial CT images of the abdomen and pelvis were performed without contrast. A dose lo wering technique was utilized adhering to the principles of ALARA. COMPARISON STUDY: CT abdomen and pelvis 12/12/2023, MRI 12/13/2023. FINDINGS: Cardiomegaly with extensive coronary artery calcifications and trace pericardial effusion. Gynecomastia. Trace pleural effusions with mild bibasilar atelectasis. No free air. Cirrhosis with sp lenomegaly and moderate abdominopelvic ascites. Ill-defined 3.5 cm left hepatic lobe mass is again se en on image 69 series 3. A TIPS shunt is redemonstrated. Cholelithiasis without CT evidence of acute cholecystitis. A 2 cm cystic focus within the region of the pancreatic head is redemonstrated with pe ripheral calcification. No hydronephrosis. Decompressed urinary bladder with wall thickening and Kan catheter in place. Per ivesicular stranding is noted with intraluminal hemorrhage within the bladder. Prostatomegaly. Athero sclerosis of the aorta without aneurysm. There is no lymphadenopathy. Mild nonspecific distal esophageal wall thickening. There is circumferential wall thickening noted wi thin the stomach. Abdominal collaterals are again seen. Extensive colonic diverticulosis. Nonspecific wall thickening of the ascending and transverse colon. Degenerative changes of the spine, pelvis and hips. Subacute T12 and L2 compression fractures are again seen. IMPRESSION: 1. Decompressed urinary bladder with Kan catheter in place. There is a small amount of hemorrhage n oted within the urinary bladder lumen. 2. Cirrhosis with stigmata of portal venous hypertension including splenomegaly with moderate abdomin al pelvic ascites. 3. TIPS shunt in place. 4. Cholelithiasis. 5. Nonspecific wall thickening of the ascending and transverse colon and stomach, possibly secondary to the chronic liver disease. An infectious or inflammatory process could appear similarly. 6. Trace pleural and pericardial effusions. 7. Colonic diverticulosis. 8. Stable appearance of the subacute T12 and L2 compression deformities. ACT 112: Negative or not required by law. The above report was generated using voice recognition software. It may contain grammatical, syntax o r spelling errors. Dictated: 02/03/2024 5:08 PM Transcribed: 02/03/2024 5:26 PM Ronni [id number] [email or web address] Electronically signed by: Yovany Gonzalez M.D. 02/03/2024 5:39 PM
--- NOTE | 2024-02-03 18:29 | Pharmacy Report ---
Pharmacy PK ABX Note - Date of Service February 03, 2024 - Assessment and Plan Assessment 73 year old M receiving Vancomycin and Zosyn for empiric treatment of fever. * Day #1 of antimicrobial therapy. * Tmax of 38.5oC. No leukocytosis. Lactate was 2.1 in ED, down to 1.4 this AM. SCr 1.22 mg/dL (CrCl 56 mL/min). * Blood cultures pending. UA negative for signs of infection. Plan Vancomycin * Loading dose: 1750 mg IV x 1 * Maintenance dose: 750 mg IV every 12 hours * Regimen is predicted to achieve target AUC/SAMEER of 400-600 mg/L.hr * No level will be ordered unless therapy is to extend beyond 48 hours Zosyn * 4.5 g IV every 8 hours Pharmacy will continue to follow and will adjust dose/frequency as necessary. Thank you. Pharmacy has transitioned to AUC monitoring for vancomycin. AUC/SAMEER is the preferred PK/PD target and is associated with decreased risk of nephrotoxicity compared to traditional trough targets.
[2024-02-03] MEDS: PIPER/TAZO 4.5g in D5W MINI-B 100 ML IV ONE (18:30)
[2024-02-03] MEDS: VANCOMYCIN HCL 1,750 MG in SODIUM CHLORIDE 0.9% 500 ML IV STA (19:00)
[2024-02-03] MEDS: MIRTAZAPINE TAB 15 MG TAB PO SCH (20:30)
[2024-02-03] MEDS: PIPERACILLIN/TAZOBACTAM 4.5 GM in DEXTROSE 5% MINI-B 100 ML IV SCH (23:57)
[2024-02-04] MEDS: VANCOMYCIN HCL 750 MG in SODIUM CHLORIDE 0.9% 250 ML IV SCH (06:22)
[2024-02-04 06:33] LABS: Hematocrit (blood only) 23.2 % (42.0-52.0); Hemoglobin 7.5 g/dl (14.0-18.0); Mean Corpuscular Hemoglobin 31.3 pg (25.0-34.0); Mean Corpuscular Hgb Conc 32.3 g/dL (32.0-36.0); Mean Corpuscular Volume 96.7 fL (80.0-100.0); Mean Platelet Volume 12.7 fL (9.4-12.4); Platelet Count 81 K/uL (130-400); RDW Coefficient of Variation 21.5 % (11.5-14.5); White Blood Count 5.84 K/ul (4.8-10.8)
[2024-02-04 06:35] LABS: BUN Creatinine Ratio 19.2 (10-20); Calcium 7.7 mg/dl (8.6-10.3); Creatinine Clr Calc Pharmacy 43.5 ml/min; Est GFR (African American) 50.3 ml/min; Est GFR (Non-African American) 43.4 ml/min; Magnesium 1.8 mg/dl (1.7-2.4); Phosphorus 4.7 mg/dl (2.5-4.9); Potassium 4.5 mmol/L (3.5-5.1)
--- NOTE | 2024-02-04 07:02 | Hospitalist Progress Note ---
Date of Service February 04, 2024 Assessment & Plan (1) Hematuria: Plan: 73-year-old male with past medical history significant for type 2 diabetes, restrictive lung disease, hyperlipidemia, chronic gout, pulmonary hypertension, gout, esophageal varices, portal vein thrombosis, prolonged QT, mild mitral regurgitation, aortic valve sclerosis, cirrhosis of liver status post TIPS, GERD, hepatocellular carcinoma s/p embolization, prostate cancer s/p radiation, radiation proctitis, protein calorie malnutrition, chronic kidney stage III,history of gross hematuria, acquired thrombocytopenia, iron deficiency anemia, CKD stage III, pancytopenia, psoriasis comes because of hematuria, abdominal pain, chest pain and shortness of breath. Patient was recently in the hospital for shortness of breath and chest pain thought to be from symptomatic anemia,Hemoglobin was 6.6 status post 3 units of PRBCs during that admission. Hematuria thought to be from radiation cystitis. He was discharged on January 27, 2024. 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 Today patient had abdominal pain and had hematuria. And also had chest pain and shortness of breath and his son brought him to the hospital. Currently chest pain and shortness resolved. Patient's bladder was irrigated in the ER and seems some clots came out. Gross hematuria Anemia Abdominal pain Recently had prostate procedure History of radiation cystitis Abdominal pain initially improved after bladder irrigation and clots coming out, then worsened again Hemoglobin 7.9. Hemoglobin was 8.6 on discharge on January 27 Blood consent obtained Bladder irrigation as needed Will follow H&H Urology consulted for further recommendations CT abdomen/pelvis -1. Decompressed urinary bladder with Kan catheter in place. There is a small amount of hemorrhage noted within the urinary bladder lumen. 2. Cirrhosis with stigmata of portal venous hypertension including splenomegaly with moderate abdominal pelvic ascites. 3. TIPS shunt in place. 4. Cholelithiasis. 5. Nonspecific wall thickening of the ascending and transverse colon and stomach, possibly secondary to the chronic liver disease. An infectious or inflammatory process could appear similarly. 6. Trace pleural and pericardial effusions. 7. Colonic diverticulosis. 8. Stable appearance of the subacute T12 and L2 compression deformities. Renal US - Kidneys: The kidneys demonstrate mild cortical atrophy. Echotexture is normal. The right kidney measures 9.3 x 4.5 x 5.1 cm and the left kidney measures 10.3 x 5.6 x 5.1 cm. There is no hydronephrosis. No shadowing renal calculi are identified. There is no sonographic evidence of contour deforming renal mass lesion. No perinephric fluid is identified. Bladder: The bladder is decompressed around a Kan catheter and could not be evaluated. Upper abdomen: The liver is cirrhotic in morphology and heterogeneous in echotexture. Perihepatic ascites is noted. IMPRESSION: 1. The kidneys demonstrate cortical atrophy and are without hydronephrosis. 2. The bladder was decompressed around a Kan catheter and could not be assessed. 3. Cirrhosis and ascites. Fever - noted after admission blood culture, urine cultx - pending started empiric vanco/ zosyn Cr increased today - will switch vanco to dapto LUCRETIA Cr increased to day at 1.56 - switch vanco to dapto - nephrology consulted Chest pain and shortness of breath Currently resolved Similar presented in the recent past EKG and troponin okay serial cardiac enzymes negative Telemetry Diabetes type 2 Hyperglycemia Continue Lantus as patient is n.p.o. Sliding scale Close monitor Hyperkalemia 5.6 on presentation 4.5 in am labs nephrology consulted follow labs Elevated lactic acid We will follow repeat levels repeat lactic acid 1.4 Elevated LFTs Seems chronic We will follow repeat labs Liver cirrhosis S/p TIPS History of GAVE/esophageal varices/portal hypertensive gastropathy Continue home Lasix, lactulose and Xifaxan and Protonix History of prostate cancer S/p radiation BPH On Proscar History of hepatocellular carcinoma S/p IR embolization Possible recurrence on recent imaging Needs follow-up History of portal vein thrombus DVT prophylaxis SCDs Disposition Med/tele Full code Admission and Anticipated Discharge Date Admission Date: February 03, 2024 Subjective Pt seen in follow up of abd. pain, hematuria, recent urologic procedure Now also w/ LUCRETIA Spiked fever yesterday after admission and started on broad spectrum antibiotics. Blood cultx pending. Urology, nephrology consulted Currently laying in bed in NAD. Currently afebrile, and without abdominal pain. Overall feels better, also more talkative today and not as sleepy. Review of Systems Review of Systems: All systems reviewed & are unremarkable except as noted in Subjective Physical Exam Physical Exam: General- WD/WN M in NAD Head- atraumatic Eyes- PERRL. ENT- oropharynx clear Neck- supple, no JVD. Lungs- clear to auscultation no wheezing or crackles. Heart- regular rate and rhythm; no murmur, no gallop. Abdomen- normal bowel sounds, soft, nontender, no distension. Extremities- no pretibial edema, no erythema seen Neuro- alert, oriented PERRL, no facial palsy; no dysarthria; moves extremities. Skin. Psoriatic rash seen in the extremities and trunk region Results & Data Results & Data Vital Signs (Past 12 Hours) Vital Signs Temp Pulse Pulse Resp BP Pulse Ox Pulse Ox 02/04/24 06:55 77 02/04/24 03:09 36.5 C 76 20 110/62 94 02/04/24 02:36 94 02/03/24 23:22 36.7 C 72 20 126/68 94 02/03/24 23:00 76 02/03/24 20:30 02/03/24 19:47 36.6 C 81 20 94/56 L 93 O2 Del Method O2 Del Method 02/04/24 06:55 02/04/24 03:09 Room Air 02/04/24 02:36 Room Air 02/03/24 23:22 Room Air 02/03/24 23:00 02/03/24 20:30 Room Air 02/03/24 19:47 Room Air Laboratory Results 02/04/24 02/03/24 02/03/24 Range/Units 06:01 17:05 11:05 WBC 5.84 (4.8-10.8) K/ul RBC 2.40 L (4.70-6.10) M/uL Hgb 7.5 L 8.4 L 7.7 L (14.0-18.0) g/dl Hct 23.2 L 26.3 L 23.6 L (42.0-52.0) % MCV 96.7 (80.0-100.0) fL MCH 31.3 (25.0-34.0) pg MCHC 32.3 (32.0-36.0) g/dL RDW Std Deviation 76.0 H (36.4-46.3) fL RDW Coeff of Violetta 21.5 H (11.5-14.5) % Plt Count 81 L (130-400) K/uL MPV 12.7 H (9.4-12.4) fL Sodium 141 (136-145) mmol/L Potassium 4.5 (3.5-5.1) mmol/L Chloride 113 H (98-107) mmol/L Carbon Dioxide 23 (21-32) mmol/L Anion Gap 5 (3-11) BUN 30 H (6-23) mg/dl Creatinine 1.56 H D (0.6-1.4) mg/dl Est Cr Clr Drug Dosing 43.5 ml/min Est GFR ( Amer) 50.3 ml/min Est GFR (Non-Af Amer) 43.4 ml/min BUN/Creatinine Ratio 19.2 (10-20) Glucose 146 H (70-99(Fasting)) mg/dl Calcium 7.7 L (8.6-10.3) mg/dl Phosphorus 4.7 (2.5-4.9) mg/dl Magnesium 1.8 (1.7-2.4) mg/dl Troponin I High Sens 7.6 7.4 (0-20) pg/ml Medications Administered Current Inpatient Medications Acetaminophen (Acetaminophen 325 Mg Tab) 650 mg PO Q4H PRN PRN Reason: Pain or Fever Stop: 03/04/24 02:35 Last Admin: 02/03/24 15:24 Dose: 650 mg Acetylcysteine (Acetylcysteine 600 Mg Cap) [facility] Stop: 03/04/24 08:59 Last Admin: 02/03/24 07:59 Dose: 1,200 mg Allopurinol (Allopurinol 100 Mg Tab) 200 mg PO QAM [facility] Stop: 03/04/24 08:59 Last Admin: 02/03/24 07:59 Dose: 200 mg Duloxetine HCl (Duloxetine Hcl 30 Mg Cap) [facility] Stop: 03/04/24 08:59 Last Admin: 02/03/24 07:59 Dose: 30 mg Ferrous Sulfate (Ferrous Sulfate 325 Mg Tab) 650 [facility] Stop: 03/04/24 08:59 Last Admin: 02/03/24 07:59 Dose: 650 mg Finasteride (Finasteride 5 Mg Tab) [facility] Stop: 03/04/24 08:59 Last Admin: 02/03/24 07:59 Dose: 5 mg Furosemide (Furosemide 40 Mg Tab) 40 mg PO QAM [facility] Stop: 03/04/24 08:59 Last Admin: 02/03/24 07:59 Dose: 40 mg Piperacillin Sod/Tazobactam (Sod 4.5 gm/ Dextrose) 100 mls @ 25 mls/hr IV Q8H [facility]; Protocol Stop: 02/06/24 00:00 Last Infusion: 02/04/24 03:57 Dose: Infused Vancomycin HCl 750 mg/ Sodium (Chloride) 265 mls @ 200 mls/hr IV Q12H [facility] Stop: 02/06/24 06:59 Last Admin: 02/04/24 06:22 Dose: 200 mls/hr Lactulose (Lactulose Syrup 20 Gm/30 Ml Udc) 10 gm PO BID [facility] Stop: 03/04/24 08:59 Last Admin: 02/03/24 20:29 Dose: Not Given Metoclopramide HCl (Metoclopramide Hcl 5 Mg Tablet) 5 mg PO TID PRN PRN Reason: Nausea Stop: 03/04/24 02:35 Last Admin: 02/03/24 13:35 Dose: 5 mg Mirtazapine (Mirtazapine Tab 15 Mg Tab) 30 mg PO HS [facility] Stop: 03/04/24 20:59 Last Admin: 02/03/24 20:30 Dose: 30 mg Miscellaneous Information (Vancomycin Consult Active) 1 each N/A UD PRN PRN Reason: Consult Stop: 03/04/24 17:36 Nitroglycerin (Nitroglycerin Sl 0.4 Mg/Tab Tab) 0.4 mg SL Q5M PRN PRN Reason: Chest Pain Stop: 03/04/24 02:35 Oxybutynin Chloride (Oxybutynin Chloride 5 Mg Tab) 5 mg PO BID [facility] Stop: 03/04/24 16:04 Last Admin: 02/03/24 20:31 Dose: 5 mg Pantoprazole Sodium (Pantoprazole 40 Mg Tab) 40 mg PO BID [facility] Stop: 03/04/24 02:35 Last Admin: 02/03/24 20:29 Dose: 40 mg Phenazopyridine HCl (Phenazopyridine Hcl 100 Mg Tab) 100 mg PO TID [facility] Stop: 02/05/24 16:04 Last Admin: 02/03/24 20:31 Dose: 100 mg Polyethylene Glycol (Polyethylene (Miralax) 17 Gm Pack) 17 gm PO DAILY [facility] Stop: 03/05/24 08:59 Rifaximin (Rifaximin 550 Mg Tablet) 550 mg PO AMHS [facility] Stop: 03/04/24 08:59 Last Admin: 02/03/24 20:29 Dose: 550 mg Tramadol HCl (Tramadol Hcl 50 Mg Tablet) 50 mg PO Q6 PRN PRN Reason: pain,severe Stop: 03/04/24 02:35 Last Admin: 02/03/24 13:35 Dose: 50 mg Zinc Sulfate (Zinc Sulfate 220 Mg Capsule) 220 mg PO QAM [facility] Stop: 03/04/24 08:59 Last Admin: 02/03/24 07:58 Dose: 220 mg (1) Hematuria Hematuria type: gross Qualified Code(s): R31.0 - Gross hematuria
[2024-02-04] MEDS: POLYETHYLENE (MIRALAX) 17 GM PACK PO SCH (08:29)
--- NOTE | 2024-02-04 11:03 | Urology Progress Note ---
Date of Service February 04, 2024 Assessment & Plan (1) Hematuria: Plan 73-year-old male with a history of prostate cancer status post radiation treatment. He follows with Dr. Peraza of [facility] urology. 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 He is s/p urological procedure last 01/30/24 with his primary urologist. He presented to the ED 02/02/24 due to hematuria and bladder pain. Urology consulted for hematuria. He is afebrile and hemodynamically stable. (Tmax yesterday 02/02 of 38.5C). Lab work reviewed - WBC 5.84, hemoglobin 7.7 -8.4 -7.5, creatinine 1.22 -1.56 today. Urinalysis with 3+ blood, negative LE, negative bacteria, negative nitrite. Recommend urine culture. Blood cultures pending. On empiric Dapto and Zosyn. Kan draining light red urine. No visible clots at time of exam. Continue to monitor. Ok to hand irrigate as needed for clots, retention, suprapubic pain. CT A/P reviewed - Decompressed urinary bladder with Kan catheter in place. There is a small amount of hemorrhage noted within the urinary bladder lumen. No hydronephrosis. No urologic intervention indicated. Continue supportive care, antibiotics, and pain management as needed. Continue to trend labs. Maintain Kan catheter until follow-up with primary urologist (Dr. Peraza of [facility]). Urology will follow along. Plan reviewed with Dr. Rashid, on-call urologist. Admission and Anticipated Discharge Date Admission Date: February 03, 2024 Subjective Pt examined at bedside this AM. Awake, sitting up in bed on arrival. No acute distress. He denies abdominal and suprapubic pain at present. States he has not needed catheter irrigation since yesterday. Kan is currently draining light red urine. He did have a temp of 38.5C yesterday afternoon. Denies f/c/n/v at present. Review of Systems Constitutional: as per Subjective / HPI Gastrointestinal: as per Subjective / HPI Genitourinary: + as per Subjective / HPI Physical Exam Constitutional: no acute distress Respiratory: no respiratory distress and no labored breathing Gastrointestinal (Abdomen): Percussion/Palpation: abdomen soft; abdomen nontender Musculoskeletal: Head/Neck/Chest: normocephalic Neurologic: awake Psychiatric: A+Ox3, euthymic affect Genitourinary: Kan intact and draining w/hematuria Results & Data Vital Signs (Past 12 Hours) Vital Signs Temp Pulse Pulse Resp BP Pulse Ox Pulse Ox 02/04/24 07:19 37.2 C 71 16 117/60 92 02/04/24 06:55 77 02/04/24 03:09 36.5 C 76 20 110/62 94 02/04/24 02:36 94 02/03/24 23:22 36.7 C 72 20 126/68 94 02/03/24 23:00 76 O2 Del Method O2 Del Method 02/04/24 07:19 Room Air 02/04/24 06:55 02/04/24 03:09 Room Air 02/04/24 02:36 Room Air 02/03/24 23:22 Room Air 02/03/24 23:00 PG Care Time/CCT Total # of Minutes Spent Total Time Spent with Patient: Total time spent is greater than 50% in coordination of care (as documented) at patient's floor/unit and/or counseling patient: Coding Level of Care Code 58531 SUB INP/OBS CARE 2/35MIN Diagnoses Gross hematuria R31.0 Hematuria type: gross (1) Hematuria Hematuria type: gross Qualified Code(s): R31.0 - Gross hematuria
[2024-02-04] MEDS: DAPTOmycin 425 MG in SYRINGE 0 ML IV SCH (12:13)
--- NOTE | 2024-02-04 12:42 | Nephrology Progress Note ---
Date of Service February 04, 2024 Assessment & Plan Admission and Anticipated Discharge Date Admission Date: February 03, 2024 Subjective Assessment & Plan (1) Hyperkalemia: resolved. (2) Hematuria: now status post Kan. Complicated urological history in the recent past reviewed in detail. Urology is following the patient. 3--LUCRETIA: slight rise in creat to 1.56 compared to yesterday 1.2. Likely some volume depletion with fever/Possible UTI--D/c lasix and give 1 liter of NSS. Follow labs. S---had some fever yesterday. Not eating much. gross hematuria is less. physical examination awake alert oriented x3 normal speech but very sleepy and weak mucous membrane is moist neck is supple no JVD chest is bilateral clear to auscultation CVS S1 and S2 regular no murmur rub or gallop heard abdomen is soft nontender extremities shows no edema musculoskeletal normal strength all 4 extremities neurological moving all 4 extremities normal speech no focal deficit skin no obvious rash noted Results & Data Vital Signs (Past 12 Hours) Vital Signs Temp Pulse Pulse Resp BP Pulse Ox Pulse Ox 02/04/24 12:29 37.2 C 74 16 116/54 L 94 02/04/24 07:19 37.2 C 71 16 117/60 92 02/04/24 06:55 77 02/04/24 03:09 36.5 C 76 20 110/62 94 02/04/24 02:36 94 O2 Del Method O2 Del Method 02/04/24 12:29 Room Air 02/04/24 07:19 Room Air 02/04/24 06:55 02/04/24 03:09 Room Air 02/04/24 02:36 Room Air
[2024-02-04] MEDS: SODIUM CHLORIDE 0.9% 1,000 ML IV SCH (12:46)
[2024-02-04] MEDS ORDERED: GLUCOSE 10 TAB/TUBE PO PRN (17:45)
[2024-02-04] MEDS ORDERED: GLUCOSE 40% GEL 15 GM TUBE PO PRN (17:45)
[2024-02-04] MEDS ORDERED: CARBOHYDRATES FOR HYPOGLYCEMIA PO PRN (17:45)
[2024-02-04] MEDS ORDERED: GLUCAGON FOR INJ 1 MG VIAL IM PRN (17:45)
[2024-02-04] MEDS ORDERED: DEXTROSE 50% 50 ML SYRINGE IV PRN (17:45)
[2024-02-04] MEDS: LANTUS PER UNIT CHARGE SC STA (18:03)
[2024-02-04] MEDS: LACTULOSE SYRUP 10 GM/15 ML BTL 960 ML PO SCH (19:51)
[2024-02-05 06:38] LABS: Hematocrit (blood only) 23.3 % (42.0-52.0); Hemoglobin 7.3 g/dl (14.0-18.0); Mean Corpuscular Hemoglobin 31.3 pg (25.0-34.0); Mean Corpuscular Hgb Conc 31.3 g/dL (32.0-36.0); Platelet Count 64 K/uL (130-400); RDW Coefficient of Variation 21.4 % (11.5-14.5); RDW Standard Deviation 76.2 fL (36.4-46.3); Red Blood Count 2.33 M/uL (4.70-6.10); White Blood Count 6.15 K/ul (4.8-10.8)
[2024-02-05 06:55] LABS: Calcium 7.6 mg/dl (8.6-10.3); Creatinine Clr Calc Pharmacy 46.2 ml/min; Est GFR (African American) 54.1 ml/min; Est GFR (Non-African American) 46.7 ml/min; Magnesium 1.7 mg/dl (1.7-2.4); Phosphorus 3.4 mg/dl (2.5-4.9); Potassium 3.8 mmol/L (3.5-5.1)
--- NOTE | 2024-02-05 07:37 | Electrocardiogram Report ---
Test Reason : Blood Pressure : / mmHG Vent. Rate : 078 BPM Atrial Rate : 078 BPM P-R Int : 172 ms QRS Dur : 088 ms QT Int : 400 ms P-R-T Axes : 038 -21 071 degrees QTc Int : 456 ms Normal sinus rhythm Abnormal ECG When compared with ECG of 04-FEB-2024 06:11, Premature ventricular complexes are no longer Present ST depression in Anterior leads more pronounced Confirmed by Pedro Carlson ([id number]) on 02/05/2024 7:37:05 AM Referred By: REFERRED SELF Confirmed By:Pedro Carlson
--- NOTE | 2024-02-05 08:17 | Hospitalist Progress Note ---
Date of Service February 05, 2024 Assessment & Plan (1) Hematuria: Plan: 73-year-old male with past medical history significant for type 2 diabetes, restrictive lung disease, hyperlipidemia, chronic gout, pulmonary hypertension, gout, esophageal varices, portal vein thrombosis, prolonged QT, mild mitral regurgitation, aortic valve sclerosis, cirrhosis of liver status post TIPS, GERD, hepatocellular carcinoma s/p embolization, prostate cancer s/p radiation, radiation proctitis, protein calorie malnutrition, chronic kidney stage III,history of gross hematuria, acquired thrombocytopenia, iron deficiency anemia, CKD stage III, pancytopenia, psoriasis comes because of hematuria, abdominal pain, chest pain and shortness of breath. Patient was recently in the hospital for shortness of breath and chest pain thought to be from symptomatic anemia,Hemoglobin was 6.6 status post 3 units of PRBCs during that admission. Hematuria thought to be from radiation cystitis. He was discharged on January 27, 2024. 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 Today patient had abdominal pain and had hematuria. And also had chest pain and shortness of breath and his son brought him to the hospital. Currently chest pain and shortness resolved. Patient's bladder was irrigated in the ER and seems some clots came out. Gross hematuria Anemia Abdominal pain Recently had prostate procedure History of radiation cystitis Abdominal pain initially improved after bladder irrigation and clots coming out, then worsened again Hemoglobin 7.9. Hemoglobin was 8.6 on discharge on January 27 Blood consent obtained Bladder irrigation as needed Will follow H&H Urology consulted for further recommendations CT abdomen/pelvis -1. Decompressed urinary bladder with Kan catheter in place. There is a small amount of hemorrhage noted within the urinary bladder lumen. 2. Cirrhosis with stigmata of portal venous hypertension including splenomegaly with moderate abdominal pelvic ascites. 3. TIPS shunt in place. 4. Cholelithiasis. 5. Nonspecific wall thickening of the ascending and transverse colon and stomach, possibly secondary to the chronic liver disease. An infectious or inflammatory process could appear similarly. 6. Trace pleural and pericardial effusions. 7. Colonic diverticulosis. 8. Stable appearance of the subacute T12 and L2 compression deformities. Renal US - Kidneys: The kidneys demonstrate mild cortical atrophy. Echotexture is normal. The right kidney measures 9.3 x 4.5 x 5.1 cm and the left kidney measures 10.3 x 5.6 x 5.1 cm. There is no hydronephrosis. No shadowing renal calculi are identified. There is no sonographic evidence of contour deforming renal mass lesion. No perinephric fluid is identified. Bladder: The bladder is decompressed around a Kan catheter and could not be evaluated. Upper abdomen: The liver is cirrhotic in morphology and heterogeneous in echotexture. Perihepatic ascites is noted. IMPRESSION: 1. The kidneys demonstrate cortical atrophy and are without hydronephrosis. 2. The bladder was decompressed around a Kan catheter and could not be assessed. 3. Cirrhosis and ascites. 3/6 pt denies any abd. pain Fever - noted after admission blood culture, urine cultx - pending started empiric vanco/ zosyn Cr increased next day - switched vanco to dapto LUCRETIA Cr now at 1.5 - switched vanco to dapto - nephrology consulted, received IVF Chest pain and shortness of breath Currently resolved Similar presented in the recent past EKG and troponin okay serial cardiac enzymes negative Telemetry Diabetes type 2 Hyperglycemia Continue Lantus Sliding scale Close monitor Hyperkalemia 5.6 on presentation 4.5 in am labs nephrology consulted follow labs Elevated lactic acid We will follow repeat levels repeat lactic acid 1.4 Elevated LFTs Seems chronic We will follow repeat labs Liver cirrhosis S/p TIPS History of GAVE/esophageal varices/portal hypertensive gastropathy Continue home Lasix, lactulose and Xifaxan and Protonix History of prostate cancer S/p radiation BPH On Proscar History of hepatocellular carcinoma S/p IR embolization Possible recurrence on recent imaging Needs follow-up History of portal vein thrombus DVT prophylaxis SCDs Disposition Med/tele Full code Admission and Anticipated Discharge Date Admission Date: February 03, 2024 Subjective Pt seen in follow up of abd. pain, hematuria, recent urologic procedure Now also w/ LUCRETIA Spiked fever again today. Blood cultx pending. will repeat urine cultx Urology, nephrology consulted Currently laying in bed in NAD. Currently without abdominal pain, however having looser stools. Overall feels ok, not as sleepy. No chest pain or shortness of breath. Hgb 7.3 , plan to transfuse 1 unit of pRBC. Review of Systems Review of Systems: All systems reviewed & are unremarkable except as noted in Subjective Physical Exam Physical Exam: General- WD/WN M in NAD Head- atraumatic Eyes- PERRL. ENT- oropharynx clear Neck- supple, no JVD. Lungs- clear to auscultation no wheezing or crackles. Heart- regular rate and rhythm; no murmur, no gallop. Abdomen- normal bowel sounds, soft, nontender, no distension. Extremities- no pretibial edema, no erythema seen Neuro- alert, oriented PERRL, no facial palsy; no dysarthria; moves extremities. Skin. Psoriatic rash seen in the extremities and trunk region Results & Data Results & Data Vital Signs (Past 12 Hours) Vital Signs Temp Pulse Pulse Resp BP Pulse Ox Pulse Ox 02/05/24 07:45 38.1 C H 78 16 132/55 L 92 02/05/24 07:23 80 02/05/24 03:09 37.2 C 86 20 132/64 92 02/05/24 02:00 92 02/04/24 23:23 37.4 C 83 20 128/85 92 02/04/24 22:53 85 O2 Del Method O2 Del Method 02/05/24 07:45 Room Air 02/05/24 07:23 02/05/24 03:09 Room Air 02/05/24 02:00 Room Air 02/04/24 23:23 Room Air 02/04/24 22:53 Laboratory Results 02/05/24 02/04/24 02/04/24 Range/Units 05:37 20:04 17:23 WBC 6.15 (4.8-10.8) K/ul RBC 2.33 L (4.70-6.10) M/uL Hgb 7.3 L (14.0-18.0) g/dl Hct 23.3 L (42.0-52.0) % MCV 100.0 (80.0-100.0) fL MCH 31.3 (25.0-34.0) pg MCHC 31.3 L (32.0-36.0) g/dL RDW Std Deviation 76.2 H (36.4-46.3) fL RDW Coeff of Violetta 21.4 H (11.5-14.5) % Plt Count 64 L (130-400) K/uL Sodium 141 (136-145) mmol/L Potassium 3.8 (3.5-5.1) mmol/L Chloride 114 H (98-107) mmol/L Carbon Dioxide 23 (21-32) mmol/L Anion Gap 4 (3-11) BUN 28 H (6-23) mg/dl Creatinine 1.47 H (0.6-1.4) mg/dl Est Cr Clr Drug Dosing 46.2 ml/min Est GFR ( Amer) 54.1 ml/min Est GFR (Non-Af Amer) 46.7 ml/min BUN/Creatinine Ratio 19.0 (10-20) Glucose 131 H (70-99(Fasting)) mg/dl POC Glucose 201 H 231 H (70-99) mg/dl Calcium 7.6 L (8.6-10.3) mg/dl Phosphorus 3.4 D (2.5-4.9) mg/dl Magnesium 1.7 (1.7-2.4) mg/dl Medications Administered Current Inpatient Medications Acetaminophen (Acetaminophen 325 Mg Tab) 650 mg PO Q4H PRN PRN Reason: Pain or Fever Stop: 03/04/24 02:35 Last Admin: 02/03/24 15:24 Dose: 650 mg Acetylcysteine (Acetylcysteine 600 Mg Cap) 1,[facility] [place] [facility] [place] Stop: 03/04/24 08:59 Last Admin: 02/04/24 08:24 Dose: 1,200 mg Allopurinol (Allopurinol 100 Mg Tab) 200 [facility] [place] [facility] [place] Stop: 03/04/24 08:59 Last Admin: 02/04/24 08:25 Dose: 200 mg Dextrose (Dextrose 50% 50 Ml Syringe) 25 - 50 ml IV UD PRN; Protocol PRN Reason: Hypoglycemia Protocol Stop: 03/05/24 17:44 Duloxetine HCl (Duloxetine Hcl 30 Mg Cap) 30 [facility] [place] [facility] [place] Stop: 03/04/24 08:59 Last Admin: 02/04/24 08:27 Dose: 30 mg Ferrous Sulfate (Ferrous Sulfate 325 Mg Tab) 650 mg [facility] [place] [facility] [place] Stop: 03/04/24 08:59 Last Admin: 02/04/24 08:28 Dose: 650 mg Finasteride (Finasteride 5 Mg Tab) 5 mg [facility] [place] [facility] [place] Stop: 03/04/24 08:59 Last Admin: 02/04/24 08:26 Dose: 5 mg Glucagon (Glucagon For Inj 1 Mg Vial) 1 mg IM UD PRN; Protocol PRN Reason: Hypoglycemia Protocol Stop: 03/05/24 17:44 Glucose (Glucose 40% Gel 15 Gm Tube) 15 - 30 gm PO UD PRN; Protocol PRN Reason: Hypoglycemia Protocol Stop: 03/05/24 17:44 Glucose (Glucose 10 Tab/Tube) 4 - 8 tab PO UD PRN; Protocol PRN Reason: Hypoglycemia Protocol Stop: 03/05/24 17:44 Piperacillin Sod/Tazobactam (Sod 4.5 gm/ Dextrose) 100 mls @ 25 mls/hr IV Q8H JODI; Protocol Stop: 02/06/24 00:00 Last Infusion: 02/05/24 05:18 Dose: Infused Daptomycin 425 mg/ Syringe 8.5 mls @ 4.25 mls/min IV Q24H JODI; Protocol Stop: 02/14/24 11:59 Last Admin: 02/04/24 12:13 Dose: 4.25 mls/min Sodium Chloride (Nss) 1,000 mls @ 80 mls/hr IV .[id number] JODI Stop: 03/05/24 12:44 Last Admin: 02/05/24 01:16 Dose: 80 mls/hr Insulin Glargine (Lantus Per Unit Charge) 13 units SQ QPM JODI Stop: 03/05/24 20:59 Lactulose (Lactulose Syrup 10 Gm/15 Ml Btl 960 Ml) 10 gm PO BID [facility] Stop: 03/04/24 08:59 Last Admin: 02/04/24 19:51 Dose: Not Given Metoclopramide HCl (Metoclopramide Hcl 5 Mg Tablet) 5 mg PO TID PRN PRN Reason: Nausea Stop: 03/04/24 02:35 Last Admin: 02/03/24 13:35 Dose: 5 mg Mirtazapine (Mirtazapine Tab 15 Mg Tab) 30 mg PO HS [facility] Stop: 03/04/24 20:59 Last Admin: 02/04/24 19:52 Dose: 30 mg Miscellaneous (Carbohydrates For Hypoglycemia ) 15 - 30 gm PO UD PRN PRN Reason: Hypoglycemia Treatment Stop: 03/05/24 17:44 Nitroglycerin (Nitroglycerin Sl 0.4 Mg/Tab Tab) 0.4 mg SL Q5M PRN PRN Reason: Chest Pain Stop: 03/04/24 02:35 Oxybutynin Chloride (Oxybutynin Chloride 5 Mg Tab) 5 mg PO BID [facility] Stop: 03/04/24 16:04 Last Admin: 02/04/24 19:53 Dose: 5 mg Pantoprazole Sodium (Pantoprazole 40 Mg Tab) 40 mg PO BID [facility] Stop: 03/04/24 02:35 Last Admin: 02/04/24 19:52 Dose: 40 mg Phenazopyridine HCl (Phenazopyridine Hcl 100 Mg Tab) 100 mg PO TID [facility] Stop: 02/05/24 16:04 Last Admin: 02/04/24 19:53 Dose: 100 mg Polyethylene Glycol (Polyethylene (Miralax) 17 Gm Pack) 17 gm PO DAILY [facility] Stop: 03/05/24 08:59 Last Admin: 02/04/24 08:29 Dose: 17 gm Rifaximin (Rifaximin 550 Mg Tablet) 550 mg PO AMHS [facility] Stop: 03/04/24 08:59 Last Admin: 02/04/24 19:54 Dose: 550 mg Tramadol HCl (Tramadol Hcl 50 Mg Tablet) 50 mg PO Q6 PRN PRN Reason: pain,severe Stop: 03/04/24 02:35 Last Admin: 02/03/24 13:35 Dose: 50 mg Zinc Sulfate (Zinc Sulfate 220 Mg Capsule) 220 mg PO QAM [facility] Stop: 03/04/24 08:59 Last Admin: 02/04/24 08:27 Dose: 220 mg (1) Hematuria Hematuria type: gross Qualified Code(s): R31.0 - Gross hematuria
--- NOTE | 2024-02-05 08:33 | Urology Progress Note ---
Date of Service February 05, 2024 Assessment & Plan (1) Hematuria: Plan 73-year-old male with a history of prostate cancer status post radiation treatment. He follows with Dr. Peraza of [facility] urology. 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 He is s/p urological procedure last 01/30/24 with his primary urologist. He presented to the ED 02/02/24 due to hematuria and bladder pain. Urology consulted for hematuria. He is afebrile and hemodynamically stable. ( Tmax 38.1C earlier this morning). Lab work reviewed - Wbc 6.15, hemoglobin 7.3, creatinine 1.47. Urinalysis with 3+ blood, negative LE, negative bacteria, negative nitrite. Urine culture pending; Blood cultures prelim no growth. On empiric Dapto and Zosyn. CT A/P reviewed - Decompressed urinary bladder with Kan catheter in place. There is a small amount of hemorrhage noted within the urinary bladder lumen. No hydronephrosis. Kan draining light to dark red urine. No clots visible at time of exam. I did offer to irrigate his catheter but he declined. He would prefer to only be irrigated if having clots/pain. We also discussed possible need for CBI. Continue to monitor urine and output. Ok to hand irrigate as needed for clots, retention, suprapubic pain. Continue supportive care, antibiotics, and pain management as needed. Continue to trend labs. No surgical intervention indicated. Urology will follow along. Plan of care reviewed with Dr. Rashid, on-call urologist. Admission and Anticipated Discharge Date Admission Date: February 03, 2024 Subjective Pt examined at bedside this AM. Awake, resting in bed on arrival. No acute distress. He denies abdominal and suprapubic pain at present. States he has not needed catheter irrigation since Saturday. Kan is currently draining light to dark red urine. Urine output overnight 400ml. Denies f/c/n/v at present (Documented temp of 38.1C this morning). Review of Systems Constitutional: as per Subjective / HPI Genitourinary: + as per Subjective / HPI Physical Exam Constitutional: no acute distress Respiratory: no respiratory distress and no labored breathing Gastrointestinal (Abdomen): Percussion/Palpation: abdomen soft; abdomen nontender Neurologic: awake Psychiatric: A+Ox3, euthymic affect Genitourinary: Kan intact and draining w/hematuria Results & Data Vital Signs (Past 12 Hours) Vital Signs Temp Pulse Pulse Resp BP Pulse Ox Pulse Ox 02/05/24 07:45 38.1 C H 78 16 132/55 L 92 02/05/24 07:23 80 02/05/24 03:09 37.2 C 86 20 132/64 92 02/05/24 02:00 92 02/04/24 23:23 37.4 C 83 20 128/85 92 02/04/24 22:53 85 O2 Del Method O2 Del Method 02/05/24 07:45 Room Air 02/05/24 07:23 02/05/24 03:09 Room Air 02/05/24 02:00 Room Air 02/04/24 23:23 Room Air 02/04/24 22:53 PG Care Time/CCT Total # of Minutes Spent Total Time Spent with Patient: Total time spent is greater than 50% in coordination of care (as documented) at patient's floor/unit and/or counseling patient: Coding Level of Care Code 71790 SUB INP/OBS CARE 2/35MIN Diagnoses Gross hematuria R31.0 Hematuria type: gross (1) Hematuria Hematuria type: gross Qualified Code(s): R31.0 - Gross hematuria
[2024-02-05] MEDS ORDERED: SODIUM CHLORIDE 0.9% 250 ML IV PRN (09:01)
[2024-02-05 09:15] LABS: Color Urine Red
[2024-02-05 09:16] LABS: Appearance Urine Turbid (Clear); Specific Gravity Urine 1.025 (1.000-1.030)
[2024-02-05 09:20] LABS: Epithelial Cell Urine 0-5 /lpf (0-5); RBC Urine >30 /hpf (0-4); WBC Urine >30 /hpf (0-5)
[2024-02-05 09:21] LABS: Bacteria Urine 1+ (Negative)
[2024-02-05] MEDS: MAGNESIUM SULFATE / D5W 1 GM/100 ML BAG IV ONE (12:31)
--- NOTE | 2024-02-05 15:58 | Electrocardiogram Report ---
Test Reason : Blood Pressure : / mmHG Vent. Rate : 077 BPM Atrial Rate : 077 BPM P-R Int : 170 ms QRS Dur : 088 ms QT Int : 418 ms P-R-T Axes : 047 -17 079 degrees QTc Int : 473 ms Normal sinus rhythm Nonspecific ST and T wave abnormality Anterior leads Abnormal ECG When compared with ECG of 05-FEB-2024 06:18, ST depression in Anterior leads less pronounced Confirmed by Pedro Carlson ([id number]) on 02/05/2024 3:57:37 PM Referred By: REFERRED SELF Confirmed By:Pedro Carlson
[2024-02-05] MEDS: LANTUS PER UNIT CHARGE SQ SCH (20:59)
[2024-02-06 05:04] LABS: Hematocrit (blood only) 26.9 % (42.0-52.0); Hemoglobin 8.8 g/dl (14.0-18.0); Mean Corpuscular Hemoglobin 31.4 pg (25.0-34.0); Mean Corpuscular Hgb Conc 32.7 g/dL (32.0-36.0); Mean Corpuscular Volume 96.1 fL (80.0-100.0); Mean Platelet Volume 12.9 fL (9.4-12.4); Nucleated RBC # (auto) 0.02 K/uL (0.00-0.12); Nucleated RBC % (auto) 0.4 %; Platelet Count 99 K/uL (130-400); RDW Coefficient of Variation 20.8 % (11.5-14.5); RDW Standard Deviation 72.2 fL (36.4-46.3); White Blood Count 5.66 K/ul (4.8-10.8)
[2024-02-06 05:16] LABS: BUN Creatinine Ratio 20.1 (10-20); Calcium 7.5 mg/dl (8.6-10.3); Creatinine Clr Calc Pharmacy 50.7 ml/min; Est GFR (African American) 60.5 ml/min; Est GFR (Non-African American) 52.2 ml/min; Magnesium 1.8 mg/dl (1.7-2.4); Phosphorus 2.6 mg/dl (2.5-4.9); Potassium 4.1 mmol/L (3.5-5.1)
--- NOTE | 2024-02-06 06:32 | Hospitalist Progress Note ---
Date of Service February 06, 2024 Assessment & Plan (1) Hematuria: Plan: 73-year-old male with past medical history significant for type 2 diabetes, restrictive lung disease, hyperlipidemia, chronic gout, pulmonary hypertension, gout, esophageal varices, portal vein thrombosis, prolonged QT, mild mitral regurgitation, aortic valve sclerosis, cirrhosis of liver status post TIPS, GERD, hepatocellular carcinoma s/p embolization, prostate cancer s/p radiation, radiation proctitis, protein calorie malnutrition, chronic kidney stage III,history of gross hematuria, acquired thrombocytopenia, iron deficiency anemia, CKD stage III, pancytopenia, psoriasis comes because of hematuria, abdominal pain, chest pain and shortness of breath. Patient was recently in the hospital for shortness of breath and chest pain thought to be from symptomatic anemia,Hemoglobin was 6.6 status post 3 units of PRBCs during that admission. Hematuria thought to be from radiation cystitis. He was discharged on January 27, 2024. 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 Today patient had abdominal pain and had hematuria. And also had chest pain and shortness of breath and his son brought him to the hospital. Currently chest pain and shortness resolved. Patient's bladder was irrigated in the ER and seems some clots came out. Gross hematuria Anemia - acute on chronic Abdominal pain Recently had prostate procedure History of radiation cystitis Abdominal pain initially improved after bladder irrigation and clots coming out, then worsened again Hemoglobin 7.9. Hemoglobin was 8.6 on discharge on January 27 Blood consent obtained Bladder irrigation as needed Will follow H&H - Hgb 7.3 on 02/04 -> received 1 unit of pRBC -> now Hgb at 8.8 Urology consulted for further recommendations CT abdomen/pelvis -1. Decompressed urinary bladder with Kan catheter in place. There is a small amount of hemorrhage noted within the urinary bladder lumen. 2. Cirrhosis with stigmata of portal venous hypertension including splenomegaly with moderate abdominal pelvic ascites. 3. TIPS shunt in place. 4. Cholelithiasis. 5. Nonspecific wall thickening of the ascending and transverse colon and stomach, possibly secondary to the chronic liver disease. An infectious or inflammatory process could appear similarly. 6. Trace pleural and pericardial effusions. 7. Colonic diverticulosis. 8. Stable appearance of the subacute T12 and L2 compression deformities. Renal US - Kidneys: The kidneys demonstrate mild cortical atrophy. Echotexture is normal. The right kidney measures 9.3 x 4.5 x 5.1 cm and the left kidney measures 10.3 x 5.6 x 5.1 cm. There is no hydronephrosis. No shadowing renal calculi are identified. There is no sonographic evidence of contour deforming renal mass lesion. No perinephric fluid is identified. Bladder: The bladder is decompressed around a Kan catheter and could not be evaluated. Upper abdomen: The liver is cirrhotic in morphology and heterogeneous in echotexture. Perihepatic ascites is noted. IMPRESSION: 1. The kidneys demonstrate cortical atrophy and are without hydronephrosis. 2. The bladder was decompressed around a Kan catheter and could not be assessed. 3. Cirrhosis and ascites. 02/04 - 02/05 pt denies any abd. pain Fever - noted after admission blood culture, urine cultx - pending started empiric vanco/ zosyn Cr increased next day - switched vanco to dapto follow cultx currently afebrile LUCRETIA Cr elevated 1.56 -> 1.3 - switched vanco to dapto - nephrology consulted, received IVF Chest pain and shortness of breath Currently resolved Similar presented in the recent past EKG and troponin okay serial cardiac enzymes negative Telemetry Diabetes type 2 Hyperglycemia Continue Lantus Sliding scale Close monitor Hyperkalemia 5.6 on presentation 4.5 in am labs nephrology consulted follow labs Elevated lactic acid We will follow repeat levels repeat lactic acid 1.4 Elevated LFTs Seems chronic We will follow repeat labs Liver cirrhosis S/p TIPS History of GAVE/esophageal varices/portal hypertensive gastropathy Continue home Lasix, lactulose and Xifaxan and Protonix History of prostate cancer S/p radiation BPH On Proscar History of hepatocellular carcinoma S/p IR embolization Possible recurrence on recent imaging Needs follow-up History of portal vein thrombus DVT prophylaxis SCDs Disposition Med/tele Full code Admission and Anticipated Discharge Date Admission Date: February 03, 2024 Subjective Pt seen in follow up of abd. pain, hematuria, recent urologic procedure Developed also LUCRETIA, and fever Blood cultx pending. repeat urine cultx Urology, nephrology consulted Currently laying in bed in NAD. Currently without abdominal pain. No chest pain or shortness of breath. Hgb 7.3 yesterday, transfused 1 unit of pRBC , now 8.8. Review of Systems Review of Systems: All systems reviewed & are unremarkable except as noted in Subjective Physical Exam Physical Exam: General- WD/WN M in NAD Head- atraumatic Eyes- PERRL. ENT- oropharynx clear Neck- supple, no JVD. Lungs- clear to auscultation no wheezing or crackles. Heart- regular rate and rhythm; no murmur, no gallop. Abdomen- normal bowel sounds, soft, nontender, no distension. Extremities- no pretibial edema, no erythema seen Neuro- alert, oriented PERRL, no facial palsy; no dysarthria; moves extremities. Skin- Psoriatic rash seen in the extremities and trunk region Results & Data Results & Data Vital Signs (Past 12 Hours) Vital Signs Temp Pulse Pulse Resp BP Pulse Ox Pulse Ox 02/06/24 03:45 37.0 C 76 20 138/62 95 02/06/24 02:00 96 02/05/24 23:29 77 02/05/24 23:17 37.4 C 78 20 146/57 H 96 02/05/24 21:00 02/05/24 20:13 36.7 C 72 20 125/71 96 O2 Del Method O2 Del Method 02/06/24 03:45 Room Air 02/06/24 02:00 Room Air 02/05/24 23:29 02/05/24 23:17 Room Air 02/05/24 21:00 Room Air 02/05/24 20:13 Room Air Laboratory Results 02/06/24 02/05/24 02/05/24 Range/Units 03:58 20:55 17:10 WBC 5.66 (4.8-10.8) K/ul RBC 2.80 L (4.70-6.10) M/uL Hgb 8.8 L (14.0-18.0) g/dl Hct 26.9 L (42.0-52.0) % MCV 96.1 (80.0-100.0) fL MCH 31.4 (25.0-34.0) pg MCHC 32.7 (32.0-36.0) g/dL RDW Std Deviation 72.2 H (36.4-46.3) fL RDW Coeff of [place] 20.8 H (11.5-14.5) % Plt Count 99 L D (130-400) K/uL MPV 12.9 H (9.4-12.4) fL Absolute Nucleated RBC 0.02 (0.00-0.12) K/uL Nucleated RBC % (auto) 0.4 % Sodium 141 (136-145) mmol/L Potassium 4.1 (3.5-5.1) mmol/L Chloride 116 H (98-107) mmol/L Carbon Dioxide 21 (21-32) mmol/L Anion Gap 4 (3-11) BUN 27 H (6-23) mg/dl Creatinine 1.34 (0.6-1.4) mg/dl Est Cr Clr Drug Dosing 50.7 ml/min Est GFR ( Amer) 60.5 ml/min Est GFR (Non-Af Amer) 52.2 ml/min BUN/Creatinine Ratio 20.1 H (10-20) Glucose 154 H (70-99(Fasting)) mg/dl POC Glucose 212 H 145 H (70-99) mg/dl Calcium 7.5 L (8.6-10.3) mg/dl Phosphorus 2.6 (2.5-4.9) mg/dl Magnesium 1.8 (1.7-2.4) mg/dl Urine Color Urine Appearance (Clear) Urine pH (4.5-7.5) Ur Specific [place] (1.000-1.030) Urine Protein (Negative) Urine Glucose (UA) (Negative) Urine Ketones (Negative) Urine Blood (Negative) Urine Nitrite (Negative) Urine Bilirubin (Negative) Urine Urobilinogen (Negative) Ur Leukocyte Esterase (Negative) Urine RBC (0-4) /hpf Urine WBC (0-5) /hpf Ur Epithelial Cells (0-5) /lpf Urine Bacteria (Negative) Blood Type Antibody Screen Crossmatch 02/05/24 02/05/24 02/05/24 Range/Units 12:24 08:43 08:11 WBC (4.8-10.8) K/ul RBC (4.70-6.10) M/uL Hgb (14.0-18.0) g/dl Hct (42.0-52.0) % MCV (80.0-100.0) fL MCH (25.0-34.0) pg MCHC (32.0-36.0) g/dL RDW Std Deviation (36.4-46.3) fL RDW Coeff of [place] (11.5-14.5) % Plt Count (130-400) K/uL MPV (9.4-12.4) fL Absolute Nucleated RBC (0.00-0.12) K/uL Nucleated RBC % (auto) % Sodium (136-145) mmol/L Potassium (3.5-5.1) mmol/L Chloride (98-107) mmol/L Carbon Dioxide (21-32) mmol/L Anion Gap (3-11) BUN (6-23) mg/dl Creatinine (0.6-1.4) mg/dl Est Cr Clr Drug Dosing ml/min Est GFR ( Amer) ml/min Est GFR (Non-Af Amer) ml/min BUN/Creatinine Ratio (10-20) Glucose (70-99(Fasting)) mg/dl POC Glucose 158 H 135 H (70-99) mg/dl Calcium (8.6-10.3) mg/dl Phosphorus (2.5-4.9) mg/dl Magnesium (1.7-2.4) mg/dl Urine Color Red Urine Appearance Turbid A (Clear) Urine pH (4.5-7.5) Ur Specific [place] 1.025 (1.000-1.030) Urine Protein (Negative) Urine Glucose (UA) (Negative) Urine Ketones (Negative) Urine Blood (Negative) Urine Nitrite (Negative) Urine Bilirubin (Negative) Urine Urobilinogen (Negative) Ur Leukocyte Esterase (Negative) Urine RBC >30 H (0-4) /hpf Urine WBC >30 H (0-5) /hpf Ur Epithelial Cells 0-5 (0-5) /lpf Urine Bacteria 1+ H (Negative) Blood Type Antibody Screen Crossmatch 02/05/24 02/02/24 Range/Units 05:37 22:37 WBC 6.15 (4.8-10.8) K/ul RBC 2.33 L (4.70-6.10) M/uL Hgb 7.3 L (14.0-18.0) g/dl Hct 23.3 L (42.0-52.0) % MCV 100.0 (80.0-100.0) fL MCH 31.3 (25.0-34.0) pg MCHC 31.3 L (32.0-36.0) g/dL RDW Std Deviation 76.2 H (36.4-46.3) fL RDW Coeff of Violet[place] 21.4 H (11.5-14.5) % Plt Count 64 L (130-400) K/uL MPV (9.4-12.4) fL Absolute Nucleated RBC (0.00-0.12) K/uL Nucleated RBC % (auto) % Sodium 141 (136-145) mmol/L Potassium 3.8 (3.5-5.1) mmol/L Chloride 114 H (98-107) mmol/L Carbon Dioxide 23 (21-32) mmol/L Anion Gap 4 (3-11) BUN 28 H (6-23) mg/dl Creatinine 1.47 H (0.6-1.4) mg/dl Est Cr Clr Drug Dosing 46.2 ml/min Est GFR ( Amer) 54.1 ml/min Est GFR (Non-Af Amer) 46.7 ml/min BUN/Creatinine Ratio 19.0 (10-20) Glucose 131 H (70-99(Fasting)) mg/dl POC Glucose (70-99) mg/dl Calcium 7.6 L (8.6-10.3) mg/dl Phosphorus 3.4 D (2.5-4.9) mg/dl Magnesium 1.7 (1.7-2.4) mg/dl Urine Color Urine Appearance (Clear) Urine pH (4.5-7.5) Ur Specific [place] (1.000-1.030) Urine Protein (Negative) Urine Glucose (UA) (Negative) Urine Ketones (Negative) Urine Blood (Negative) Urine Nitrite (Negative) Urine Bilirubin (Negative) Urine Urobilinogen (Negative) Ur Leukocyte Esterase (Negative) Urine RBC (0-4) /hpf Urine WBC (0-5) /hpf Ur Epithelial Cells (0-5) /lpf Urine Bacteria (Negative) Blood Type O Positive Antibody Screen NEGATIVE Crossmatch See Detail Medications Administered Current Inpatient Medications Acetaminophen (Acetaminophen 325 Mg Tab) 650 mg PO Q4H PRN PRN Reason: Pain or Fever Stop: 03/04/24 02:35 Last Admin: 02/05/24 11:09 Dose: 650 mg Acetylcysteine (Acetylcysteine 600 Mg Cap) [facility] [place]: 03/04/24 08:59 Last Admin: 02/05/24 08:26 Dose: 1,200 mg Allopurinol (Allopurinol 100 Mg Tab) 200 [facility] [place] Stop: 03/04/24 08:59 Last Admin: 02/05/24 08:26 Dose: 200 mg Dextrose (Dextrose 50% 50 Ml Syringe) 25 - 50 ml IV UD PRN; Protocol PRN Reason: Hypoglycemia Protocol Stop: 03/05/24 17:44 Duloxetine HCl (Duloxetine Hcl 30 Mg Cap) 30 mg PO [facility] Stop: 03/04/24 08:59 Last Admin: 02/05/24 08:26 Dose: 30 mg Ferrous Sulfate (Ferrous Sulfate 325 Mg Tab) 650 mg PO [facility] Stop: 03/04/24 08:59 Last Admin: 02/05/24 08:26 Dose: 650 mg Finasteride (Finasteride 5 Mg Tab) 5 mg PO [facility] Stop: 03/04/24 08:59 Last Admin: 02/05/24 08:26 Dose: 5 mg Glucagon (Glucagon For Inj 1 Mg Vial) 1 mg IM UD PRN; Protocol PRN Reason: Hypoglycemia Protocol Stop: 03/05/24 17:44 Glucose (Glucose 40% Gel 15 Gm Tube) 15 - 30 gm PO UD PRN; Protocol PRN Reason: Hypoglycemia Protocol Stop: 03/05/24 17:44 Glucose (Glucose 10 Tab/Tube) 4 - 8 tab PO UD PRN; Protocol PRN Reason: Hypoglycemia Protocol Stop: 03/05/24 17:44 Daptomycin 425 mg/ Syringe 8.5 mls @ 4.25 mls/min IV Q24H [facility]; Protocol Stop: 02/14/24 11:59 Last Admin: 02/05/24 12:31 Dose: 4.25 mls/min Sodium Chloride (Nss) 1,000 mls @ 80 mls/hr IV .[id number] [facility] Stop: 03/05/24 12:44 Last Admin: 02/06/24 00:46 Dose: 80 mls/hr Insulin Glargine (Lantus Per Unit Charge) 13 units SQ QPM [facility] Stop: 03/05/24 20:59 Last Admin: 02/05/24 20:59 Dose: 13 units Lactobacillus Acidophilus (Advanced Probiotic 625 Mg Capsule) 1,250 mg PO DAILY [facility] Stop: 03/07/24 08:59 Lactulose (Lactulose Syrup 10 Gm/15 Ml Btl 960 Ml) 10 gm PO BID [facility] Stop: 03/04/24 08:59 Last Admin: 02/05/24 20:59 Dose: Not Given Metoclopramide HCl (Metoclopramide Hcl 5 Mg Tablet) 5 mg PO TID PRN PRN Reason: Nausea Stop: 03/04/24 02:35 Last Admin: 02/03/24 13:35 Dose: 5 mg Mirtazapine (Mirtazapine Tab 15 Mg Tab) 30 mg PO HS [facility] Stop: 03/04/24 20:59 Last Admin: 02/05/24 21:00 Dose: 30 mg Miscellaneous (Carbohydrates For Hypoglycemia ) 15 - 30 gm PO UD PRN PRN Reason: Hypoglycemia Treatment Stop: 03/05/24 17:44 Nitroglycerin (Nitroglycerin Sl 0.4 Mg/Tab Tab) 0.4 mg SL Q5M PRN PRN Reason: Chest Pain Stop: 03/04/24 02:35 Oxybutynin Chloride (Oxybutynin Chloride 5 Mg Tab) 5 mg PO BID [facility] Stop: 03/04/24 16:04 Last Admin: 02/05/24 21:01 Dose: 5 mg Pantoprazole Sodium (Pantoprazole 40 Mg Tab) 40 mg PO BID [facility] Stop: 03/04/24 02:35 Last Admin: 02/05/24 21:01 Dose: 40 mg Polyethylene Glycol (Polyethylene (Miralax) 17 Gm Pack) 17 gm PO DAILY [facility] Stop: 03/05/24 08:59 Last Admin: 02/05/24 08:34 Dose: 17 gm Rifaximin (Rifaximin 550 Mg Tablet) 550 mg PO AMHS [facility] Stop: 03/04/24 08:59 Last Admin: 02/05/24 21:00 Dose: 550 mg Tramadol HCl (Tramadol Hcl 50 Mg Tablet) 50 mg PO Q6 PRN PRN Reason: pain,severe Stop: 03/04/24 02:35 Last Admin: 02/03/24 13:35 Dose: 50 mg Zinc Sulfate (Zinc Sulfate 220 Mg Capsule) 220 mg PO QAM [facility] Stop: 03/04/24 08:59 Last Admin: 02/05/24 08:26 Dose: 220 mg (1) Hematuria Hematuria type: gross Qualified Code(s): R31.0 - Gross hematuria
[2024-02-06] MEDS: ADVANCED PROBIOTIC 625 MG CAPSULE PO SCH (08:50)
--- NOTE | 2024-02-06 10:14 | Urology Progress Note ---
Date of Service February 06, 2024 Assessment & Plan (1) Hematuria: Plan 73-year-old male with a history of prostate cancer status post radiation treatment. He follows with Dr. Peraza of [facility] urology. 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 He is s/p urological procedure last 01/30/24 with his primary urologist. He presented to the ED 02/02/24 due to hematuria and bladder pain. Urology consulted for hematuria. He is afebrile and hemodynamically stable. ( Tmax yesterday 38.1C). Lab work reviewed - WBC 5.66, Creatinine 1.34, and Hemoglobin 8.8 (received 1 unit pRBC yesterday) Urine culture pending; Blood cultures prelim no growth x 48hours. On empiric Dapto and Zosyn. CT A/P reviewed - Decompressed urinary bladder with Kan catheter in place. There is a small amount of hemorrhage noted within the urinary bladder lumen. No hydronephrosis. Kan draining light to dark red urine. He has not required manual irrigation x2 days. Suspect bleeding is from radiation cystitis and recent procedure We did discuss CBI as an option but this would require exchanging his current catheter for a 3-way cath which could potentially cause more irritation and he prefers not to do this. At this point, he would prefer to maintain the current catheter and monitor. He has follow-up with his primary urologist next week per his report. Recommend close follow-up with his primary urologist. Also discussed that he should inquire about hyperbaric oxygen treatment as this can help with radiation cystitis. Can also consider teaching patient/family how to irrigate the catheter in the event it becomes obstructed following discharge. Continue to monitor urine and output. Ok to hand irrigate as needed for clots, retention, suprapubic pain. Continue supportive care, antibiotics, and pain management as needed. Continue to trend labs. No surgical intervention indicated. Urology will follow along. Plan of care reviewed with Dr. Salas, on-call urologist. Admission and Anticipated Discharge Date Admission Date: February 03, 2024 Subjective Pt examined at bedside this AM. Awake, resting in bed on arrival. No acute distress. Received 1 unit of pRBC yesterday. He denies abdominal and suprapubic pain at present. States he has not needed catheter irrigation since Saturday evening. Kan is currently draining light to dark red urine. Urine output overnight 450ml. Denies f/c/n/v at present. He is eager to get home as tomorrow is his '[birth year]. Review of Systems Constitutional: as per Subjective / HPI Gastrointestinal: as per Subjective / HPI Genitourinary: + as per Subjective / HPI Physical Exam Constitutional: no acute distress Respiratory: no respiratory distress and no labored breathing Gastrointestinal (Abdomen): Percussion/Palpation: abdomen soft; abdomen nontender Neurologic: awake Psychiatric: Orientation: alert and oriented x 3 Genitourinary: Kan intact and draining w /hematuria Results & Data Vital Signs (Past 12 Hours) Vital Signs Temp Pulse Pulse Resp BP Pulse Ox Pulse Ox 02/06/24 07:31 75 02/06/24 07:30 37.3 C 77 16 137/53 L 94 02/06/24 03:45 37.0 C 76 20 138/62 95 02/06/24 02:00 96 02/05/24 23:29 77 02/05/24 23:17 37.4 C 78 20 146/57 H 96 02/05/24 21:00 O2 Del Method O2 Del Method 02/06/24 07:31 02/06/24 07:30 Room Air 02/06/24 03:45 Room Air 02/06/24 02:00 Room Air 02/05/24 23:29 02/05/24 23:17 Room Air 02/05/24 21:00 Room Air PG Care Time/CCT Total # of Minutes Spent Total Time Spent with Patient: Total time spent is greater than 50% in coordination of care (as documented) at patient's floor/unit and/or counseling patient: Coding Level of Care Code 61445 SUB INP/OBS CARE 2/35MIN Diagnoses Gross hematuria R31.0 Hematuria type: gross (1) Hematuria Hematuria type: gross Qualified Code(s): R31.0 - Gross hematuria
[2024-02-07 03:25] LABS: Hematocrit (blood only) 27.1 % (42.0-52.0); Hemoglobin 8.9 g/dl (14.0-18.0); Mean Corpuscular Hgb Conc 32.8 g/dL (32.0-36.0); Mean Corpuscular Volume 97.5 fL (80.0-100.0); Mean Platelet Volume 11.4 fL (9.4-12.4); Platelet Count 91 K/uL (130-400); RDW Coefficient of Variation 20.5 % (11.5-14.5); RDW Standard Deviation 70.5 fL (36.4-46.3); Red Blood Count 2.78 M/uL (4.70-6.10); White Blood Count 4.15 K/ul (4.8-10.8)
[2024-02-07 03:43] LABS: BUN Creatinine Ratio 22.8 (10-20); Calcium 7.6 mg/dl (8.6-10.3); Creatinine Clr Calc Pharmacy 59.6 ml/min; Est GFR (African American) 73.5 ml/min; Est GFR (Non-African American) 63.4 ml/min; Magnesium 1.7 mg/dl (1.7-2.4); Phosphorus 2.6 mg/dl (2.5-4.9); Potassium 4.2 mmol/L (3.5-5.1)
--- NOTE | 2024-02-07 13:22 | Urology Progress Note ---
Date of Service February 07, 2024 Assessment & Plan (1) Hematuria: Plan 73-year-old male with a history of prostate cancer status post radiation treatment. He follows with Dr. Peraza of [facility] urology. 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 He is s/p urological procedure last 01/30/24 with his primary urologist. He presented to the ED 02/02/24 due to hematuria and bladder pain. Urology consulted for hematuria. He is afebrile and hemodynamically stable Lab work reviewed - WBC 4.15, Creatinine 1.14, and Hemoglobin 8. (received 1 unit pRBC 02/04) Urine culture negative. Blood cultures prelim no growth x 48hours. On empiric Dapto and Zosyn. CT A/P from 02/02 - Decompressed urinary bladder with Kan catheter in place. There is a small amount of hemorrhage noted within the urinary bladder lumen. No hydronephrosis. Kan draining light to dark red urine. Suspect bleeding is from radiation cystitis and recent procedure. We did discuss CBI as an option but this would require exchanging his current catheter for a 3-way cath which could potentially cause more irritation and he prefers not to do this. Discussed possible catheter removal. Risks/benefits discussed. At this point, he would prefer to maintain the current catheter and monitor. He has follow-up with his primary urologist next week per his report. Recommend close follow-up with his primary urologist. Also discussed that he should inquire about hyperbaric oxygen treatment as this can help with radiation cystitis. Can also consider teaching patient/family how to irrigate the catheter in the event it becomes obstructed following discharge. Continue to monitor urine and output. Ok to hand irrigate as needed for clots, retention, suprapubic pain. Continue supportive care, antibiotics, and pain management as needed. Continue to trend labs. No surgical intervention indicated. Urology will follow peripherally. Please call with any further questions, concerns, or changes in patient status. Plan of care reviewed with Dr. Rashid, on-call urologist. Admission and Anticipated Discharge Date Admission Date: February 03, 2024 Subjective Pt examined at bedside this AM. Awake, sitting in bedside chair on arrival. No acute distress. He denies abdominal and suprapubic pain at present. States he did have nursing irrigate the catheter last night but there were no clots. Kan is currently draining light to dark red urine. Denies f/c/n/v at present. Review of Systems Constitutional: as per Subjective / HPI Genitourinary: + as per Subjective / HPI Physical Exam Constitutional: no acute distress Respiratory: no respiratory distress and no labored breathing Gastrointestinal (Abdomen): Percussion/Palpation: abdomen soft; abdomen nontender Neurologic: awake Psychiatric: Orientation: alert and oriented x 3 Genitourinary: Kan intact and draining w /hematuria Results & Data Vital Signs (Past 12 Hours) Vital Signs Temp Pulse Pulse Resp BP Pulse Ox Pulse Ox 02/07/24 12:16 36.9 C 73 18 138/69 97 02/07/24 07:21 36.8 C 76 16 162/77 H 94 02/07/24 07:16 70 02/07/24 02:54 37.0 C 76 16 173/67 H 94 02/07/24 02:00 95 O2 Del Method O2 Del Method 02/07/24 12:16 Room Air 02/07/24 07:21 Room Air 02/07/24 07:16 02/07/24 02:54 Room Air 02/07/24 02:00 Room Air PG Care Time/CCT Total # of Minutes Spent Total Time Spent with Patient: Total time spent is greater than 50% in coordination of care (as documented) at patient's floor/unit and/or counseling patient: Coding Level of Care Code 69556 SUB INP/OBS CARE 2/35MIN Diagnoses Gross hematuria R31.0 Hematuria type: gross (1) Hematuria Hematuria type: gross Qualified Code(s): R31.0 - Gross hematuria
[2024-02-07] MEDS: MAGNESIUM SULFATE / D5W 1 GM/100 ML BAG IV SCH (15:04)
--- NOTE | 2024-02-07 15:08 | Hospitalist Progress Note ---
Date of Service February 07, 2024 Assessment & Plan (1) Hematuria: Plan: 73-year-old male with PMH of type 2 diabetes, restrictive lung disease, hyperlipidemia, chronic gout, pulmonary hypertension, gout, esophageal varices, portal vein thrombosis, prolonged QT, mild mitral regurgitation, aortic valve sclerosis, cirrhosis of liver status post TIPS, GERD, hepatocellular carcinoma s/p embolization, prostate cancer s/p radiation, radiation proctitis, protein calorie malnutrition, chronic kidney stage III,history of gross hematuria, acquired thrombocytopenia, iron deficiency anemia, CKD stage III, pancytopenia, psoriasis comes because of hematuria, abdominal pain, chest pain and shortness of breath. Patient was recently in the hospital for shortness of breath and chest pain thought to be from symptomatic anemia,Hemoglobin was 6.6 status post 3 units of PRBCs during that admission. Hematuria thought to be from radiation cystitis. He was discharged on January 27, 2024. 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 On the day of presentation, patient had abdominal pain and had hematuria. And also had chest pain and shortness of breath and his son brought him to the hospital. On arrival, chest pain and shortness resolved. Patient's bladder was irrigated in the ER and seems some clots came out. He is being managed for the following: Gross hematuria likely secondary to cystitis, abdominal pain. Acute on chronic anemia: Likely secondary to above. Status post 1 unit PRBC on 02/05/2024. Patient had recently prostatic procedure on January 30, 2024 prior to arrival. See above. Patient has history of radiation cystitis. Hemoglobin of 7.7 at presentation, gradually dropped down to 7.3, status post 1 unit PRBC, currently stable around 8.8. Admitting renal ultrasound with cortical atrophy and without hydronephrosis. Cirrhosis and ascites demonstrated. Admitting CTAP with a small amount of hemorrhage noted in the urinary bladder lumen. Cirrhosis noted. TIPS shunt in place. Stable appearance of T12 and L2 compression deformities. Colonic diverticulosis. Urology on board, patient declined the option of CBI. Patient would like to maintain the current catheter. Recommends close follow-up with his primary urologist. Okay to hand irrigate as needed for clots, retention, suprapubic pain. Continue with antibiotics and pain medicine. No surgical intervention. Patient has been on daptomycin 3/, patient had febrile event on admitting day. He was on empiric Vanco and Zosyn prior to this. Follow admitting urine and blood culture. Will complete 7-day therapy. Patient reports resolution of abdominal pain. Patient has been afebrile. Acute kidney injury: Creatinine peaked up to 1.56, antibiotic switched to daptomycin [see above]. Status post IVF. Now resolved. Chest pain and shortness of breath: Currently resolved, likely symptomatic anemia. Serial cardiac enzymes negative. Continue telemetry monitoring. 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 No abd pain, abd is soft. Repeat US abd in a week of dc. If worsening pain or distension consider therapeutic tap while inpatient.Continue home Lasix, lactulose and Xifaxan and Protonix. Pt was on ivf since many days, will dc ivf. will give small dose of iv lasix today. resume home po lasix from [place]. hepatocellular carcinoma status post IR embolization, possible recurrent tumor on imaging last month, outpatient IR procedure contemplated as per GI note s hx portal vein thrombus as per records DM2 insulin requiring, well-controlled as of recent hemoglobin A1c of 5.03 November 2023. history GAVE/esophageal varices/portal hypertensive gastropathy/radiation proctitis/diverticulosis on endoscopy BPH/prostate cancer status post radiation, thoracic compression fracture DVT prophylaxis. SCDs Re: Thrombocytopenia Full code Admission and Anticipated Discharge Date Admission Date: February 03, 2024 Subjective Patient was seen and examined at bedside. Patient was sitting up in bed, on room air, working with PT, not in any acute distress. Patient denies any headache/fever/chest pain/abdominal pain. Patient reports eating okay and moving bowels okay. 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 Physical Exam Physical Exam: General- WD/WN M in NAD Head- atraumatic Eyes- PERRL. ENT- oropharynx clear Neck- supple, no JVD. Lungs- clear to auscultation no wheezing or crackles. Heart- regular rate and rhythm; no murmur, no gallop. Abdomen- normal bowel sounds, soft, nontender, no distension. Extremities- no pretibial edema, no erythema seen Neuro- alert, oriented PERRL, no facial palsy; no dysarthria; moves extremities. Skin- Psoriatic rash seen in the extremities and trunk region Results & Data Results & Data Vital Signs (Past 12 Hours) Vital Signs Temp Pulse Pulse Resp BP Pulse Ox O2 Del Method 02/07/24 12:16 36.9 C 73 18 138/69 97 Room Air 02/07/24 07:21 36.8 C 76 16 162/77 H 94 Room Air 02/07/24 07:16 70 02/07/24 02:54 37.0 C 76 16 173/67 H 94 Room Air (1) Hematuria Hematuria type: gross Qualified Code(s): R31.0 - Gross hematuria
[2024-02-07] MEDS: PSYLLIUM or GUAR GUM FIBER POWDER PACKET PO SCH (16:13)
[2024-02-07] MEDS: FUROSEMIDE INJ 20 MG/2 ML VIAL IV ONE (16:13)
[2024-02-08 05:38] LABS: Hematocrit (blood only) 26.4 % (42.0-52.0); Hemoglobin 8.8 g/dl (14.0-18.0); Mean Corpuscular Hemoglobin 31.5 pg (25.0-34.0); Mean Corpuscular Hgb Conc 33.3 g/dL (32.0-36.0); Mean Corpuscular Volume 94.6 fL (80.0-100.0); Mean Platelet Volume 11.4 fL (9.4-12.4); Nucleated RBC # (auto) 0.02 K/uL (0.00-0.12); Nucleated RBC % (auto) 0.4 %; Platelet Count 117 K/uL (130-400); RDW Coefficient of Variation 20.1 % (11.5-14.5); Red Blood Count 2.79 M/uL (4.70-6.10)
[2024-02-08 05:55] LABS: BUN Creatinine Ratio 20.7 (10-20); Calcium 7.6 mg/dl (8.6-10.3); Creatinine Clr Calc Pharmacy 56.1 ml/min; Est GFR (African American) 68.4 ml/min; Magnesium 1.7 mg/dl (1.7-2.4); Phosphorus 2.4 mg/dl (2.5-4.9); Potassium 4.3 mmol/L (3.5-5.1)
[2024-02-08] MEDS: FUROSEMIDE 40 MG TAB PO SCH (08:34)
[2024-02-08] MEDS: POT PHOSPHATE MONOBASIC W/ SOD TAB PO SCH (08:49)
[2024-02-08] MEDS: MAGNESIUM SULFATE / D5W 1 GM/100 ML BAG IV SCH (08:49)
--- NOTE | 2024-02-08 16:34 | Hospitalist Progress Note ---
Date of Service February 08, 2024 Assessment & Plan (1) Hematuria: Plan: 73-year-old male with PMH of type 2 diabetes, restrictive lung disease, hyperlipidemia, chronic gout, pulmonary hypertension, gout, esophageal varices, portal vein thrombosis, prolonged QT, mild mitral regurgitation, aortic valve sclerosis, cirrhosis of liver status post TIPS, GERD, hepatocellular carcinoma s/p embolization, prostate cancer s/p radiation, radiation proctitis, protein calorie malnutrition, chronic kidney stage III,history of gross hematuria, acquired thrombocytopenia, iron deficiency anemia, CKD stage III, pancytopenia, psoriasis comes because of hematuria, abdominal pain, chest pain and shortness of breath. Patient was recently in the hospital for shortness of breath and chest pain thought to be from symptomatic anemia,Hemoglobin was 6.6 status post 3 units of PRBCs during that admission. Hematuria thought to be from radiation cystitis. He was discharged on January 27, 2024. 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 On the day of presentation, patient had abdominal pain and had hematuria. And also had chest pain and shortness of breath and his son brought him to the hospital. On arrival, chest pain and shortness resolved. Patient's bladder was irrigated in the ER and seems some clots came out. He is being managed for the following: Gross hematuria likely secondary to cystitis, abdominal pain. Acute on chronic anemia: Likely secondary to above. Status post 1 unit PRBC on 02/05/2024. Patient had recently prostatic procedure on January 30, 2024 prior to arrival. See above. Patient has history of radiation cystitis. Hemoglobin of 7.7 at presentation, gradually dropped down to 7.3, status post 1 unit PRBC, currently stable around 8.8. Admitting renal ultrasound with cortical atrophy and without hydronephrosis. Cirrhosis and ascites demonstrated. Admitting CTAP with a small amount of hemorrhage noted in the urinary bladder lumen. Cirrhosis noted. TIPS shunt in place. Stable appearance of T12 and L2 compression deformities. Colonic diverticulosis. Urology on board, patient declined the option of CBI. Patient would like to maintain the current catheter. Recommends close follow-up with his primary urologist. Okay to hand irrigate as needed for clots, retention, suprapubic pain. Continue with antibiotics and pain medicine. No surgical intervention. Patient has been on daptomycin 3/, patient had febrile event on admitting day. He was on empiric Vanco and Zosyn prior to this. Follow admitting urine and blood culture. Will complete 7-day therapy w/ Dapto. Patient reports resolution of abdominal pain. Patient has been afebrile. Acute kidney injury: Creatinine peaked up to 1.56, antibiotic switched to daptomycin [see above]. Status post IVF. Now resolved. Chest pain and shortness of breath: Currently resolved, likely symptomatic anemia. Serial cardiac enzymes negative. Continue telemetry monitoring. 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 No abd pain, abd is soft. Repeat US abd in a week of dc. If worsening pain or distension consider therapeutic tap while inpatient.Continue home Lasix, lactulose and Xifaxan and Protonix. Pt was on ivf since many days, will dc ivf. will give small dose of iv lasix today. resume home po lasix from [place]. hepatocellular carcinoma status post IR embolization, possible recurrent tumor on imaging last month, outpatient IR procedure contemplated as per GI notes hx portal vein thrombus as per records DM2 insulin requiring, well-controlled as of recent hemoglobin A1c of 5.03 November 2023. history GAVE/esophageal varices/portal hypertensive gastropathy/radiation proctitis/diverticulosis on endoscopy BPH/prostate cancer status post radiation, thoracic compression fracture DVT prophylaxis. SCDs Re: Thrombocytopenia Full code Admission and Anticipated Discharge Date Admission Date: February 03, 2024 Subjective Patient was seen and examined at bedside. Patient was sitting up in bed, on room air, working with PT, not in any acute distress. Patient denies any headache/fever/chest pain/abdominal pain. Patient reports eating okay and had loose stool in am, will follow clinically. Patient reports urine color getting darker red today. Physical Exam Physical Exam: General- WD/WN M in NAD Head- atraumatic Eyes- PERRL. ENT- oropharynx clear Neck- supple, no JVD. Lungs- clear to auscultation no wheezing or crackles. Heart- regular rate and rhythm; no murmur, no gallop. Abdomen- normal bowel sounds, soft, nontender, no distension. Extremities- no pretibial edema, no erythema seen Neuro- alert, oriented PERRL, no facial palsy; no dysarthria; moves extremities. Skin- Psoriatic rash seen in the extremities and trunk region Results & Data Results & Data Vital Signs (Past 12 Hours) Vital Signs Temp Pulse Pulse Resp BP Pulse Ox O2 Del Method 02/08/24 16:11 36.7 C 78 16 136/61 95 Room Air 02/08/24 15:00 70 02/08/24 11:20 36.7 C 70 18 132/54 L 95 Room Air 02/08/24 08:17 37.0 C 74 18 154/56 H 93 Room Air 02/08/24 07:00 76 (1) Hematuria Hematuria type: gross Qualified Code(s): R31.0 - Gross hematuria
[2024-02-09 04:51] LABS: Hematocrit (blood only) 24.6 % (42.0-52.0); Hemoglobin 8.2 g/dl (14.0-18.0); Mean Corpuscular Hemoglobin 31.8 pg (25.0-34.0); Mean Corpuscular Hgb Conc 33.3 g/dL (32.0-36.0); Mean Corpuscular Volume 95.3 fL (80.0-100.0); Mean Platelet Volume 11.3 fL (9.4-12.4); Platelet Count 99 K/uL (130-400); RDW Coefficient of Variation 20.3 % (11.5-14.5); RDW Standard Deviation 70.4 fL (36.4-46.3); Red Blood Count 2.58 M/uL (4.70-6.10); White Blood Count 3.99 K/ul (4.8-10.8)
[2024-02-09 05:05] LABS: BUN Creatinine Ratio 21.2 (10-20); Calcium 7.5 mg/dl (8.6-10.3); Creatinine Clr Calc Pharmacy 57.6 ml/min; Est GFR (African American) 70.5 ml/min; Est GFR (Non-African American) 60.9 ml/min; Magnesium 1.6 mg/dl (1.7-2.4); Phosphorus 3.1 mg/dl (2.5-4.9); Potassium 4.1 mmol/L (3.5-5.1)
[2024-02-09] MEDS: MAGNESIUM SULFATE / D5W 1 GM/100 ML BAG IV SCH (09:47)
--- NOTE | 2024-02-09 15:05 | Electrocardiogram Report ---
Test Reason : Blood Pressure : / mmHG Vent. Rate : 074 BPM Atrial Rate : 074 BPM P-R Int : 162 ms QRS Dur : 090 ms QT Int : 428 ms P-R-T Axes : 027 -23 062 degrees QTc Int : 475 ms Normal sinus rhythm Normal ECG When compared with ECG of 05-FEB-2024 11:04, No significant change was found Confirmed by Pedro Carlson ([id number]) on 02/09/2024 3:05:02 PM Referred By: REFERRED SELF Confirmed By:Pedro Carlson
--- NOTE | 2024-02-09 15:32 | Hospitalist Progress Note ---
Date of Service February 09, 2024 Assessment & Plan (1) Hematuria: Plan: 73-year-old male with PMH of type 2 diabetes, restrictive lung disease, hyperlipidemia, chronic gout, pulmonary hypertension, gout, esophageal varices, portal vein thrombosis, prolonged QT, mild mitral regurgitation, aortic valve sclerosis, cirrhosis of liver status post TIPS, GERD, hepatocellular carcinoma s/p embolization, prostate cancer s/p radiation, radiation proctitis, protein calorie malnutrition, chronic kidney stage III,history of gross hematuria, acquired thrombocytopenia, iron deficiency anemia, CKD stage III, pancytopenia, psoriasis comes because of hematuria, abdominal pain, chest pain and shortness of breath. Patient was recently in the hospital for shortness of breath and chest pain thought to be from symptomatic anemia,Hemoglobin was 6.6 status post 3 units of PRBCs during that admission. Hematuria thought to be from radiation cystitis. He was discharged on January 27, 2024. 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 On the day of presentation, patient had abdominal pain and had hematuria. And also had chest pain and shortness of breath and his son brought him to the hospital. On arrival, chest pain and shortness resolved. Patient's bladder was irrigated in the ER and seems some clots came out. He is being managed for the following: Gross hematuria likely secondary to cystitis, abdominal pain. Acute on chronic anemia: Likely secondary to above. Status post 1 unit PRBC on 02/05/2024. Patient had recently prostatic procedure on January 30, 2024 prior to arrival. See above. Patient has history of radiation cystitis. Hemoglobin of 7.7 at presentation, gradually dropped down to 7.3, status post 1 unit PRBC, currently stable around 8.8. Admitting renal ultrasound with cortical atrophy and without hydronephrosis. Ci rrhosis and ascites demonstrated. Admitting CTAP with a small amount of hemorrhage noted in the urinary bladder lumen. Cirrhosis noted. TIPS shunt in place. Stable appearance of T12 and L2 compression deformities. Colonic diverticulosis. Urology on board, patient declined the option of CBI. Patient would like to maintain the current catheter. Recommends close follow-up with his primary urologist. Okay to hand irrigate as needed for clots, retention, suprapubic pain. Continue with antibiotics and pain medicine. No surgical intervention. Patient has been on daptomycin 3/, patient had febrile event on admitting day. He was on empiric Vanco and Zosyn prior to this. Follow admitting urine and blood culture. Will complete 7-day therapy w/ Dapto. Patient reports resolution of abdominal pain. Patient has been afebrile. Acute kidney injury: Creatinine peaked up to 1.56, antibiotic switched to daptomycin [see above]. Status post IVF. Now resolved. Chest pain and shortness of breath: Currently resolved, likely symptomatic anemia. Serial cardiac enzymes negative. Continue telemetry monitoring. 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 No abd pain, abd is distended, pt now feeling discomfort. Will likely get IR thoracentesis [place]. Continue home Lasix, lactulose and Xifaxan and Protonix. hepatocellular carcinoma status post IR embolization, possible recurrent tumor on imaging last month, outpatient IR procedure contemplated as per GI notes hx portal vein thrombus as per records DM2 insulin requiring, well-controlled as of recent hemoglobin A1c of 5.03 November 2023. history GAVE/esophageal varices/portal hypertensive gastropathy/radiation proctitis/diverticulosis on endoscopy BPH/prostate cancer status post radiation, thoracic compression fracture DVT prophylaxis. SCDs Re: Thrombocytopenia Full code Dispo: IR thoracentesis prior to dispo. Admission and Anticipated Discharge Date Admission Date: February 03, 2024 Subjective Patient was seen and examined at bedside. Patient was lying in bed, on room air, not in any acute distress. Patient denies any headache/fever/chest pain/abdominal pain. Patient reports eating okay and stools are now formed. Pt had leak around urine cath site, nursing in touch w/ uro for recs. Physical Exam Physical Exam: General- WD/WN M in NAD Head- atraumatic Eyes- PERRL. ENT- oropharynx clear Neck- supple, no JVD. Lungs- clear to auscultation no wheezing or crackles. Heart- regular rate and rhythm; no murmur, no gallop. Abdomen- normal bowel sounds, soft, nontender, + distension. Extremities- no pretibial edema, no erythema seen Neuro- alert, oriented PERRL, no facial palsy; no dysarthria; moves extremities. Skin- Psoriatic rash seen in the extremities and trunk region Results & Data Results & Data Vital Signs (Past 12 Hours) Vital Signs Temp Pulse Pulse Pulse Resp BP Pulse Ox 02/09/24 15:00 73 02/09/24 11:47 36.9 C 73 18 132/59 L 93 02/09/24 07:17 37.0 C 80 18 153/68 H 92 02/09/24 07:15 77 02/09/24 06:05 36.4 C L 70 16 124/82 95 O2 Del Method 02/09/24 15:00 02/09/24 11:47 Room Air 02/09/24 07:17 Room Air 02/09/24 07:15 02/09/24 06:05 Room Air (1) Hematuria Hematuria type: gross Qualified Code(s): R31.0 - Gross hematuria
[2024-02-10 04:23] LABS: Hematocrit (blood only) 23.7 % (42.0-52.0); Hemoglobin 7.8 g/dl (14.0-18.0); Mean Corpuscular Hemoglobin 31.3 pg (25.0-34.0); Mean Corpuscular Hgb Conc 32.9 g/dL (32.0-36.0); Mean Corpuscular Volume 95.2 fL (80.0-100.0); Mean Platelet Volume 11.1 fL (9.4-12.4); Platelet Count 93 K/uL (130-400); RDW Coefficient of Variation 20.2 % (11.5-14.5); RDW Standard Deviation 69.5 fL (36.4-46.3); Red Blood Count 2.49 M/uL (4.70-6.10)
[2024-02-10 04:44] LABS: Calcium 7.5 mg/dl (8.6-10.3); Creatinine Clr Calc Pharmacy 61.8 ml/min; Est GFR (African American) 76.8 ml/min; Est GFR (Non-African American) 66.2 ml/min; Magnesium 1.5 mg/dl (1.7-2.4); Phosphorus 3.4 mg/dl (2.5-4.9); Potassium 3.8 mmol/L (3.5-5.1)
[2024-02-10] MEDS: MAGNESIUM SULFATE / D5W 1 GM/100 ML BAG IV SCH (09:05)
--- NOTE | 2024-02-10 14:36 | Ultrasound Report ---
Ultrasound-guided paracentesis INDICATION: Ascites PROCEDURE: Procedure and risks were explained. Informed consent was obtained. A final timeout was com pleted. The abdomen was prepped and draped in sterile fashion. 1% buffered lidocaine was utilized for skin anesthesia. Utilizing ultrasound guidance, a 5 [place] safety centesis catheter was advanced into the left lower q uadrant pocket of ascites. Ultrasound images were obtained. 4000 mL of ascites fluid was removed with 1 L sent to the lab. The catheter was removed and Band-Aid applied. The patient tolerated the proced ure well. Vital signs will be monitored prior to discharge. IMPRESSION: Paracentesis as above. Performed, dictated, and signed by Luis Ellis PA-C; to be co-signed by Dr. Yovany Gonzalez. Electronically signed by: Yovany Gonzalez M.D. 02/10/2024 2:59 PM
[2024-02-10 14:58] LABS: Albumin Peritoneal Fluid < 1.5 gm/dl; Amylase Peritoneal Fluid 18 U/L
[2024-02-10 15:04] LABS: Glucose Peritoneal Fluid 230 mg/dl; LDH Peritoneal Fluid 54 U/L; Lipase Peritoneal Fluid 22 U/L; Total Protein Peritoneal Fluid < 3.0 gm/dl
[2024-02-10 15:14] LABS: Hematocrit (blood only) 24.6 % (42.0-52.0); Hemoglobin 8.3 g/dl (14.0-18.0)
[2024-02-10] MEDS ORDERED: ALBUMIN 25% 25 GM/100 ML VIAL IV SCH (15:15)
--- NOTE | 2024-02-10 15:20 | Hospitalist Progress Note ---
Date of Service February 10, 2024 Assessment & Plan (1) Hematuria: Plan: 73-year-old male with PMH of type 2 diabetes, restrictive lung disease, hyperlipidemia, chronic gout, pulmonary hypertension, gout, esophageal varices, portal vein thrombosis, prolonged QT, mild mitral regurgitation, aortic valve sclerosis, cirrhosis of liver status post TIPS, GERD, hepatocellular carcinoma s/p embolization, prostate cancer s/p radiation, radiation proctitis, protein calorie malnutrition, chronic kidney stage III,history of gross hematuria, acquired thrombocytopenia, iron deficiency anemia, CKD stage III, pancytopenia, psoriasis comes because of hematuria, abdominal pain, chest pain and shortness of breath. Patient was recently in the hospital for shortness of breath and chest pain thought to be from symptomatic anemia,Hemoglobin was 6.6 status post 3 units of PRBCs during that admission. Hematuria thought to be from radiation cystitis. He was discharged on January 27, 2024. 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 On the day of presentation, patient had abdominal pain and had hematuria. And also had chest pain and shortness of breath and his son brought him to the hospital. On arrival, chest pain and shortness resolved. Patient's bladder was irrigated in the ER and seems some clots came out. He is being managed for the following: Gross hematuria likely secondary to cystitis, abdominal pain. Acute on chronic anemia: Likely secondary to above. Status post 1 unit PRBC on 02/05/2024. Patient had recently prostatic procedure on January 30, 2024 prior to arrival. See above. Patient has history of radiation cystitis. Hemoglobin of 7.7 at presentation, gradually dropped down to 7.3, status post 1 unit PRBC, currently stable around 8.8. Admitting renal ultrasound with cortical atrophy and without hydronephrosis. Ci rrhosis and ascites demonstrated. Admitting CTAP with a small amount of hemorrhage noted in the urinary bladder lumen. Cirrhosis noted. TIPS shunt in place. Stable appearance of T12 and L2 compression deformities. Colonic diverticulosis. Urology on board, patient declined the option of CBI. Patient would like to m aintain the current catheter. Recommends close follow-up with his primary urologist. Okay to hand irrigate as needed for clots, retention, suprapubic pain. Continue with antibiotics and pain medicine. No surgical intervention. Patient has been on daptomycin 3/, patient had febrile event on admitting day. He was on empiric Vanco and Zosyn prior to this. Follow admitting urine and blood culture. s/p 7-day therapy w/ Dapto. Patient reports resolution of abdominal pain. Patient has been afebrile. Acute kidney injury: Creatinine peaked up to 1.56, antibiotic switched to daptomycin [see above]. Status post IVF. Now resolved. Chest pain and shortness of breath: Currently resolved, likely symptomatic anemia. Serial cardiac enzymes negative. Continue telemetry monitoring. 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 No abd pain, abd is distended, pt now feeling discomfort. IR thoracentesis today. Continue home Lasix, lactulose and Xifaxan and Protonix. hepatocellular carcinoma status post IR embolization, possible recurrent tumor on imaging last month, outpatient IR procedure contemplated as per GI notes hx portal vein thrombus as per records DM2 insulin requiring, well-controlled as of recent hemoglobin A1c of 5.03 November 2023. history GAVE/esophageal varices/portal hypertensive gastropathy/radiation proctitis/diverticulosis on endoscopy BPH/prostate cancer status post radiation, thoracic compression fracture DVT prophylaxis. SCDs Re: Thrombocytopenia, hematuria Full code Dispo: likely dc [place]. CM to assist w/ dc plan. Admission and Anticipated Discharge Date Admission Date: February 03, 2024 Subjective Patient was seen and examined at bedside. Patient was lying in bed, on room air, not in any acute distress. Patient denies any headache/fever/chest pain/abdominal pain. Patient reports eating okay and stools are formed. Pt had leak around urine cath site yesterday, now resolved. Physical Exam Physical Exam: General- WD/WN M in NAD Head- atraumatic Eyes- PERRL. ENT- oropharynx clear Neck- supple, no JVD. Lungs- clear to auscultation no wheezing or crackles. Heart- regular rate and rhythm; no murmur, no gallop. Abdomen- normal bowel sounds, soft, nontender, + distension. Extremities- no pretibial edema, no erythema seen Neuro- alert, oriented PERRL, no facial palsy; no dysarthria; moves extremities. Skin- Psoriatic rash seen in the extremities and trunk region UC w/ darker red urine. Results & Data Results & Data Vital Signs (Past 12 Hours) Vital Signs Temp Pulse Pulse Pulse Resp BP Pulse Ox 02/10/24 14:58 65 02/10/24 14:30 36.7 C 65 16 118/56 L 96 02/10/24 14:00 36.6 C 64 16 105/49 L 96 02/10/24 13:42 36.6 C 63 16 102/65 95 02/10/24 11:23 36.6 C 70 14 131/49 L 94 02/10/24 07:36 36.7 C 72 12 107/66 93 02/10/24 07:16 70 02/10/24 03:35 37 C 75 18 134/60 94 O2 Del Method 02/10/24 14:58 02/10/24 14:30 Room Air 02/10/24 14:00 Room Air 02/10/24 13:42 Room Air 02/10/24 11:23 Room Air 02/10/24 07:36 Room Air 02/10/24 07:16 02/10/24 03:35 Room Air (1) Hematuria Hematuria type: gross Qualified Code(s): R31.0 - Gross hematuria
[2024-02-10 15:25] VITALS: RESP 18
[2024-02-10 15:33] LABS: Appearance Peritoneal Fluid Cloudy; Color Peritoneal Fluid Yellow; Lymphocytes, Fluid 19 %; Mono,Macrophage,Mesothelial 79 %; Neutrophils, Fluid 2 %; RBC Peritoneal Fluid Auto < 2000 /uL; WBC Peritoneal Fluid Auto 214 /ul (0-300)
[2024-02-11 05:37] LABS: Hemoglobin 7.9 g/dl (14.0-18.0); Mean Corpuscular Hemoglobin 31.7 pg (25.0-34.0); Mean Corpuscular Hgb Conc 32.9 g/dL (32.0-36.0); Mean Corpuscular Volume 96.4 fL (80.0-100.0); Mean Platelet Volume 12.4 fL (9.4-12.4); Platelet Count 106 K/uL (130-400); RDW Coefficient of Variation 20.5 % (11.5-14.5); RDW Standard Deviation 71.7 fL (36.4-46.3); Red Blood Count 2.49 M/uL (4.70-6.10); White Blood Count 3.84 K/ul (4.8-10.8)
[2024-02-11 05:53] LABS: Calcium 7.7 mg/dl (8.6-10.3); Creatinine Clr Calc Pharmacy 57.1 ml/min; Est GFR (African American) 69.8 ml/min; Est GFR (Non-African American) 60.2 ml/min; Magnesium 1.5 mg/dl (1.7-2.4); Potassium 4.1 mmol/L (3.5-5.1)
[2024-02-11 07:31] VITALS: O2SAT 95
[2024-02-11] MEDS: MAGNESIUM SULFATE / D5W 1 GM/100 ML BAG IV SCH (09:24)
[2024-02-11 11:19] VITALS: BP 114/62; TEMP 97.7
--- NOTE | 2024-02-11 12:53 | Discharge Summary ---
Date of Service February 11, 2024 Admission HPI Per Admitting Provider 73-year-old male with past medical history significant for type 2 diabetes, restrictive lung disease, hyperlipidemia, chronic gout, pulmonary hypertension, gout, esophageal varices, portal vein thrombosis, prolonged QT, mild mitral regurgitation, aortic valve sclerosis, cirrhosis of liver status post TIPS, GERD, hepatocellular carcinoma s/p embolization, prostate cancer s/p radiation, radiation proctitis, protein calorie malnutrition, chronic kidney stage III,history of gross hematuria, acquired thrombocytopenia, iron deficiency anemia, CKD stage III, pancytopenia, psoriasis comes because of hematuria, abdominal pain, chest pain and shortness of breath. Patient was recently in the hospital for shortness of breath and chest pain thought to be from symptomatic anemia,Hemoglobin was 6.6 status post 3 units of PRBCs during that admission. Hematuria thought to be from radiation cystitis. He was discharged on January 27, 2024. 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 Today patient had abdominal pain and had hematuria. And also had chest pain and shortness of breath and his son brought him to the hospital. Currently chest pain and shortness resolved. Abdominal pain resolved. Patient's bladder was irrigated in the ER and seems some clots came out. Currently resting comfortably. Denies any fevers. No headache. No runny nose or sore throat. No cough. Hemodynamically stable. Lives with his . Ambulates with walker Past medical history. As mentioned above Past surgical history. Bilateral cataract surgery. Colonoscopy. Cystoscopy. EGD. IR cancer embolization. TIPS. Tonsillectomy. Sigmoidoscopy. TIPS revision. Family history. . No smoking. No alcohol use. No drug use. Social history. Father alcoholism. Colon cancer. Psoriasis. Mother had lung cancer. Daughter had cervical cancer. Daughter had thyroid cancer. Daughter had uterine cancer. Brother had heart disease. Brother had pancreatic cancer. Admission Exam Per Admitting Provider General- Not in distress Head- atraumatic Eyes- PERRL. ENT- oropharynx clear Neck- supple, no JVD. Lungs- clear to auscultation no wheezing or crackles. Heart- regular rate and rhythm; no murmur, no gallop. Abdomen- normal bowel sounds, soft, nontender, no distension. Extremities- no pretibial edema, no erythema seen Neuro- alert, oriented PERRL, no facial palsy; no dysarthria; moves extremities. Skin. Psoriatic rash seen in the extremities and trunk region Principal Diagnosis Hematuria likely secondary to cystitis Acute on chronic anemia Acute kidney injury Symptomatic anemia Discharge Exam General- WD/WN M in NAD Head- atraumatic Eyes- PERRL. ENT- oropharynx clear Neck- supple, no JVD. Lungs- clear to auscultation no wheezing or crackles. Heart- regular rate and rhythm; no murmur, no gallop. Abdomen- normal bowel sounds, soft, nontender, + distension - improved. Extremities- no pretibial edema, no erythema seen Neuro- alert, oriented PERRL, no facial palsy; no dysarthria; moves extremities. Skin- Psoriatic rash seen in the extremities and trunk region UC w/ darker red urine. Discharge Data Allergies Allergy/AdvReac Type Severity Reaction Status Date / Time No Known Allergies Allergy Mild Verified 02/03/24 00:09 Consultations 02/02/24 23:57 ED Decision to Admit Stat 02/03/24 08:00 Consult Nephrology Routine Consult Urology Routine Ordered Studies 02/03/24 14:07 US Renal Bladder [US renal/blad retro comp] Routine 02/03/24 16:05 CT Abd and Pelvis [CT abd pelvis wo con] Urgent 02/10/24 13:00 IR paracentesis abd w/img US Routine Hospital Course (1) Hematuria: 73-year-old male with PMH of type 2 diabetes, restrictive lung disease, hyperlipidemia, chronic gout, pulmonary hypertension, gout, esophageal varices, portal vein thrombosis, prolonged QT, mild mitral regurgitation, aortic valve sclerosis, cirrhosis of liver status post TIPS, GERD, hepatocellular carcinoma s/p embolization, prostate cancer s/p radiation, radiation proctitis, protein calorie malnutrition, chronic kidney stage III,history of gross hematuria, acquired thrombocytopenia, iron deficiency anemia, CKD stage III, pancytopenia, psoriasis comes because of hematuria, abdominal pain, chest pain and shortness of breath. Patient was recently in the hospital for shortness of breath and chest pain thought to be from symptomatic anemia,Hemoglobin was 6.6 status post 3 units of PRBCs during that admission. Hematuria thought to be from radiation cystitis. He was discharged on January 27, 2024. 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 On the day of presentation, patient had abdominal pain and had hematuria. And also had chest pain and shortness of breath and his son brought him to the hospital. On arrival, chest pain and shortness resolved. Patient's bladder was irrigated i n the ER and seems some clots came out. He was managed for the following: Gross hematuria likely secondary to cystitis, abdominal pain. Acute on chronic anemia: Likely secondary to above. Status post 1 unit PRBC on 02/05/2024. Patient had recently prostatic procedure on January 30, 2024 prior to arrival. See above. Patient has history of radiation cystitis. Hemoglobin of 7.7 at presentation, gradually dropped down to 7.3, status post 1 unit PRBC, currently stable around 8.8. Admitting renal ultrasound with cortical atrophy and without hydronephrosis. Cirrhosis and ascites demonstrated. Admitting CTAP with a small amount of hemorrhage noted in the urinary bladder lumen. Cirrhosis noted. TIPS shunt in place. Stable appearance of T12 and L2 compression deformities. Colonic diverticulosis. Urology on board, patient declined the option of CBI. Patient would like to m aintain the current catheter. Recommends close follow-up with his primary urologist. Okay to hand irrigate as needed for clots, retention, suprapubic pain. Continue with antibiotics and pain medicine. No surgical intervention. Patient has been on daptomycin 02/03, patient had febrile event on admitting day. He was on empiric Vanco and Zosyn prior to this. S/p 7-day therapy w/ Dapto. Patient reports resolution of abdominal pain. Patient has been afebrile. Acute kidney injury: Creatinine peaked up to 1.56, antibiotic switched to daptomycin [see above]. Status post IVF. Now resolved. Chest pain and shortness of breath: Currently resolved, likely symptomatic anemia. Serial cardiac enzymes negative. Continue telemetry monitoring. 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 No abd pain, abd is distended, pt now feeling discomfort. IR thoracentesis 3 - 4L OUt. Continue home Lasix, lactulose and Xifaxan and Protonix.f/u w/ repeat usg in 1-2 weeks time w/ pcp office, pt has been made aware to coordinate w/ pcp office to set up the test. hepatocellular carcinoma status post IR embolization, possible recurrent tumor on imaging last month, outpatient IR procedure contemplated as per GI notes hx portal vein thrombus as per records DM2 insulin requiring, well-controlled as of recent hemoglobin A1c of 5.03 November 2023. history GAVE/esophageal varices/portal hypertensive gastropathy/radiation proctitis/diverticulosis on endoscopy BPH/prostate cancer status post radiation, thoracic compression fracture DVT prophylaxis. SCDs Re: Thrombocytopenia, hematuria Full code Dispo: likely dc [place]. CM to assist w/ dc plan. Follow-up with your primary care physician within a week time and likely you will need labs CBC/CMP/magnesium/phosphorus. Follow-up with your nephrology as prior. Closely follow-up with your urology within a week time upon discharge. Follow up with your GI doctor as prior. You underwent paracentesis and 4 L of abdominal fluid was removed. You will need repeat ultrasound abdomen in about a week time, and further evaluation for need for paracentesis based on your clinical evaluation at the time. Coordinate with the PCP office to set up the test. Take your medications as prescribed. Please make sure that you are able to get your medications today by calling your pharmacy before you leave the hospital so that your treatment continuity is not broken. Home Health Attestation I certify that this patient is under my care and that I, or a physicians accounting assistant working with me, had a face to-face encounter that meets the home health [id number] encounter requirements with this patient. The encounter with the patient was in whole, or in part, for the following medical condition, which is the primary reason for home health care (list medical condition): hematuria I certify that, based on my findings, the following services are medically necessary home health services: My clinical findings support the need for the above services because: Medication Compliance and Monitoring Effective of New Medications Skilled Nsg Assessment Further, I certify that my clinical findings support that this patient is homebound (i.e. absences from home require considerable and taxing effort and are for medical reasons or caodaism services or infrequently or of short duration when for other reasons) because: Poor Endurance; SOB Minimal Exertion Supportive Aid - Walker Certification for Home Health Services: Based on the above findings, I certify that this patient is confined to the home and needs intermittent retirement care, physical therapy and/or speech therapy or continues to need occupational therapy. The patient is under my care, and I have initiated the establishment of the plan of care. This patient will be followed by a physician who will periodically review the plan of care. Total Time Total Time Spent Total Time Spent (In Minutes): 45 Discharge Plan Discharge Items Patient Disposition: Home - Home Health Services Reason For Visit: ABDOMINAL PAIN, HEMATURIA, CHEST PAIN Discharge Diagnosis: Hematuria likely secondary to cystitis Acute on chronic anemia Acute kidney injury Symptomatic anemia Activity: Resume your previous activity Non-emergency contact: Primary Care Provider Call non-emergency contact if: you have any medication questions Follow-up/Referrals: Frank Peraza MD [Outside Practitioners] - (Date & Time 02/14/2024 2:45 PM Provider Frank Peraza MD Department Urology [facility] ) Francisco Cisse MD [Primary Care Provider] - (Date & Time 02/13/2024 11:00 AM Provider Gege Herbert MD Department General Internal Medicine [facility] ) Diet: Carb Consistent or DM2 and Heart Healthy Addtl Attending Provider Instructions: Follow-up with your primary care physician within a week time and likely you will need labs CBC/CMP/magnesium/phosphorus. Follow-up with your nephrology as prior. Closely follow-up with your urology within a week time upon discharge. Follow up with your GI doctor as prior. You underwent paracentesis and 4 L of abdominal fluid was removed. You will need repeat ultrasound abdomen in about a week time, and further evaluation for need for paracentesis based on your clinical evaluation at the time. Coordinate with the PCP office to set up the test. Take your medications as prescribed. Please make sure that you are able to get your medications today by calling your pharmacy before you leave the hospital so that your treatment continuity is not broken. Pending Studies at Discharge: Yes Stand-Alone Forms: My [facility], Smoking Cessation Medications and DC Order Prescriptions: New oxybutynin chloride 5 mg Tablet 5 mg PO BID Qty: 60 0RF Continued allopurinol 100 mg Tablet 200 mg PO QAM furosemide [Lasix] 20 mg Tablet 40 mg PO QAM Rx Instructions: 2 tablet dose acetaminophen [Tylenol] 325 mg Tablet 650 mg PO Q8H PRN (Reason: Fever Or Pain) ferrous sulfate [iron] 325 mg (65 mg iron) Tablet 650 mg PO QAM Rx Instructions: 2 tablet dose acetylcysteine 600 mg Capsule 1,200 mg PO QAM Men's 50 Plus Multivitamin 400-20-370 mcg Tablet 1 tab PO DAILY Probiotic 5 billion cell Capsule, Sprinkle 1 cap PO QAM finasteride 5 mg Tablet 5 mg PO QAM insulin glargine [Lantus U-100 Insulin] 100 unit/mL solution 27 unit subcut QPM metoclopramide HCl 5 mg tablet 5 mg PO TID PRN (Reason: Nausea) mirtazapine [Remeron] 30 mg tablet 30 mg PO HS lactulose [Kristalose] 10 gram packet 10 g PO BID Qty: 15 0RF Rx Instructions: Titrate your lactulose as advised to have 2-3 good Bowel movements per day tramadol 50 mg tablet 50 mg PO Q6 PRN (Reason: pain,severe) pantoprazole 40 mg tablet,delayed release (DR/EC) 40 mg PO AMPM duloxetine 30 mg capsule,delayed release(DR/EC) 30 mg PO QAM Xifaxan 550 mg tablet 550 mg PO AMHS zinc 50 mg Capsule 50 mg PO QAM Discharge Orders: Discharge Order (Routine); Ordered 02/11/24 Ordered By: Dangelo George Admission Data Admit Date/Time: 02/03/24 01:19 Attending Provider: Dangelo George Admit Provider: Roderick Alba Primary Care Provider: Francisco Cisse Other Providers: Roderick Alba; Emeterio Philippe; Alex Blanco; Jose Ramon Rubi; Kristen Crowell; Pablo Ellis; Clara Chand; Ayaka Kim; Zane Salas; Vandana Rios; Rc Borja; Truman Unger; Raulito Rashid.
[2024-02-11 16:30] VITALS: PULSE 63
== END 2024-02-11 16:30 | disposition home health service (06) | DRG 698 ==
LOC: ED 21:26 → EDINP 02-03 01:19 → SUATTDRO 02-03 01:19 → 2W 02-03 02:37

== ENCOUNTER 2024-02-20 05:48 | Observation (INO) ==
[2024-02-20] MEDS ORDERED: SODIUM CHLORIDE 0.9% 250 ML IV PRN ×2 (07:06→09:07)
--- NOTE | 2024-02-20 07:06 | Emergency Department Note ---
History of Present Illness General Chief complaint: Hematuria Stated complaint: HEMATURIA, HX OF BLADDER SURGERY Time Seen by Provider: 02/20/24 06:55 Source: patient, RN notes reviewed and old records reviewed (I have reviewed a urology consultation from 02-12-2023 for hematuria) Mode of arrival: ambulatory History of Present Illness This patient is 73-year-old male who has a history of prostate cancer and radiation cystitis comes in after having hematuria this is been going on for quite some time he was cauterized by urology on January and is followed by Dr. Peraza. They put a catheter and he said it was extremely uncomfortable it was discharged about a week ago he still passing blood with blood clots his hemoglobin is in the 7 range he says he is scheduled for blood transfusion this week. He is followed by Dr. Cisse. He said he just could not take it anymore and is not feeling well so he came here. No fever no lightheadedness or dizziness no nausea vomiting or shortness of breath. He does have a history of [place] and is being evaluated for possible liver transplant as well. He does not feel like his abdomen is significantly distended or painful at this point Home Medications Medication Instructions Recorded Confirmed Type allopurinol 100 mg tablet 0 mg PO QAM 05/16/20 02/20/24 History finasteride 5 mg tablet 5 mg PO QAM 11/03/21 02/20/24 History furosemide 20 mg tablet (Lasix) 0 mg PO QAM 11/02/22 02/20/24 History insulin glargine 100 unit/mL 27 unit subcut QPM 11/05/22 02/20/24 History subcutaneous solution (Lantus U-100 Insulin) acetaminophen 325 mg tablet 0 mg PO Q8H PRN Fever Or Pain 02/24/23 02/20/24 History (Tylenol) Lactobacil.acidophilus-Bifido.animalis 0 cap PO QAM 05/17/23 02/20/24 History 5 billion cell sprinkle capsule (Probiotic) acetylcysteine 600 mg capsule 0 mg PO QAM 05/17/23 02/20/24 History ferrous sulfate 325 mg (65 mg 0 mg PO QAM 05/17/23 02/20/24 History iron) tablet (iron) yzaiqbbyfarb-eqx-bdbtu acid-vit 0 tab PO DAILY 05/17/23 02/20/24 History K-lycop 400 mcg-20 mcg-370 mcg tablet (Men's 50 Plus Multivitamin) duloxetine 30 mg capsule,delayed 30 mg PO QAM 02/02/24 02/20/24 History release pantoprazole 40 mg tablet,delayed 40 mg PO AMPM 02/02/24 02/20/24 History release rifaximin 550 mg tablet (Xifaxan) 550 mg PO AMHS 02/02/24 02/20/24 History tramadol 50 mg tablet 50 mg PO Q6 PRN pain,severe 02/02/24 02/20/24 History oxybutynin chloride 5 mg tablet 5 mg PO BID #60 tabs 02/11/24 02/20/24 Rx zinc gluconate 50 mg tablet 0 mg PO DAILY 02/13/24 02/20/24 History Allergies Allergy/AdvReac Type Severity Reaction Status Date / Time No Known Allergies Allergy Mild Verified 02/20/24 09:25 Past Med/Surg History Medical History Atypical chest pain Radiation cystitis History of blood transfusion 11/2022 Hepatocellular carcinoma Spinal fracture of T12 vertebra History of recent hospitalization 06/2023 [facility] hepatic encephalopathy Insulin dependent type 2 diabetes mellitus Liver spots Under surveillance, stable per patient Anxiety and depression Liver cirrhosis secondary to [place] Anemia of chronic disease under surveillance Prostate cancer Hx radiation History of panic attacks Gout No current issues GERD (gastroesophageal reflux disease) GAVE (gastric antral vascular ectasia) CKD (chronic kidney disease) stage 3, GFR 30-59 ml/min Hypertension Hx Esophageal varices EGD 05/22/23 ([facility]): Grade 1 varices in distal esophagus without high risk stigmata Upper GI bleed Hx Psoriasis Surgical History History of left cataract surgery History of right cataract surgery History of prostate biopsy malignant S/P TIPS (transjugular intrahepatic portosystemic shunt) History of esophagogastroduodenoscopy (EGD) Most recent 05/2023 [facility] History of colonoscopy with polypectomy History of tonsillectomy and adenoidectomy History of abdominal paracentesis Multiple, most recent 01/2023 Family History Father , "3/4 liver gone due to drinking" Colorectal cancer, Onset Age: 63 Mother Lung cancer Daughter Cancer cervical and thyroid cancers Ovarian cancer Other No family history of adverse response to anesthesia 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 Smoking Status: Never smoker Second Hand Exposure: No; Do You Dip or Chew Tobacco: No; Hx Alcohol Use: No Hx Substance Use: No Preferred Language: Korean Communication Ability: Effective Visual Impairment: No Limitations Hearing Ability: Normal Drug Discovery Informatics Specialist Required: No Beliefs That Will Affect Care: None marital status: Current Living Situation: Spouse Current Living Situation Comment: 1 level single family home 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 How many Children do You have: 6 How many Children do You have Comment: one , eldest daughter in her sleep from seizure disorder Other Information That Helps Us Care for You: No Feels Safe at Home: Yes Safety Concerns: Feels Safe At This Time Childhood Exposure to Second-Hand Smoke: Yes Diet Comment: "I watch my sugar, average fasting is 140 mg/dl" caffeine: Yes (cola, sugar free, decaf) during the past year weight has: remained stable Dental Care, Regularly: No Physical Activity Frequency: Does not Exercise Seatbelt Use: always Sunscreen Use: Yes Assistive Devices: Glasses and Walker Review of Systems A total of 10 systems reviewed and were otherwise negative Physical Exam Vital Signs Vital Signs - 24 hr 02/20/24 05:51 02/20/24 05:58 02/20/24 06:03 Temperature Temperature Source Pulse Rate 64 62 Pulse Rate [Right Finger] 66 Respiratory Rate 16 23 Respiratory Effort / Characteristics Respiratory Depth Blood Pressure 127/66 Blood Pressure [Right Arm] 143/72 H Blood Pressure Mean 86 Blood Pressure Mean [Right Arm] 95 Blood Pressure Position Lying Blood Pressure Position [Right Arm] Lying Pulse Oximetry 98 98 Oxygen Delivery Method Room Air Room Air Sepsis Recent Fever Within 48 Hours No Sepsis New/Unexplained Change in Mental Status N/A Sepsis Action Taken by Nursing No Action Required 02/20/24 07:51 02/20/24 07:51 02/20/24 09:01 Temperature Temperature Source Pulse Rate 62 Pulse Rate [Right Finger] 63 63 Respiratory Rate 18 14 Respiratory Effort / Characteristics Non-Labored Spontaneous Respiratory Depth Normal Blood Pressure Blood Pressure [Right Arm] 134/63 Blood Pressure Mean Blood Pressure Mean [Right Arm] 86 Blood Pressure Position Blood Pressure Position [Right Arm] Pulse Oximetry 100 Oxygen Delivery Method Sepsis Recent Fever Within 48 Hours Sepsis New/Unexplained Change in Mental Status Sepsis Action Taken by Nursing 02/20/24 09:01 02/20/24 09:43 02/20/24 09:51 Temperature 36.5 C Temperature Source Oral Pulse Rate 63 71 Pulse Rate [Right Finger] Respiratory Rate 14 Respiratory Effort / Characteristics SOB on Exertion Respiratory Depth Blood Pressure 141/58 H Blood Pressure [Right Arm] Blood Pressure Mean 85 Blood Pressure Mean [Right Arm] Blood Pressure Position Blood Pressure Position [Right Arm] Pulse Oximetry 99 Oxygen Delivery Method Sepsis Recent Fever Within 48 Hours Sepsis New/Unexplained Change in Mental Status Sepsis Action Taken by Nursing 02/20/24 10:00 02/20/24 10:15 02/20/24 10:30 Temperature 36.5 C 36.5 C 36.5 C Temperature Source Oral Oral Oral Pulse Rate 65 68 71 Pulse Rate [Right Finger] Respiratory Rate 16 14 16 Respiratory Effort / Characteristics Respiratory Depth Blood Pressure 129/70 129/77 138/64 Blood Pressure [Right Arm] Blood Pressure Mean 89 94 88 Blood Pressure Mean [Right Arm] Blood Pressure Position Blood Pressure Position [Right Arm] Pulse Oximetry 98 98 92 Oxygen Delivery Method Sepsis Recent Fever Within 48 Hours Sepsis New/Unexplained Change in Mental Status Sepsis Action Taken by Nursing General: Well developed well nourished older male who appears in no acute distress, breathing comfortably on room air. Normal speech HEENT: Normal cephalic atraumatic. Pupils are equal round and reactive to light. Sclera are anicteric. Extraocular movements are intact. Oropharynx is pink with moist mucous membranes. No swelling of the mouth lips or tongue. Neck: Supple with a midline trachea. No meningeal signs or stiffness, no JVD or bruits. No Stridor. Chest: Clear to auscultation bilaterally. No wheezes or rhonchi. No increased work of breathing. Heart: Regular rate and rhythm without murmurs or gallops. Abdomen: Soft nontender, mildly distended without rebound guarding or rigidity. Extremities: No cyanosis clubbing or edema. No calf tenderness or assymetry Spine/Back. Non tender to palpation. No CVA tenderness Skin: Good turgor without rashes. Neurologic exam: Cranial nerves two through 12 are intact. Motor and sensation are intact and symmetrical throughout. Medical Decision Making Differential Diagnosis Radiation cystitis cystitis, anemia, infection, electrolyte or metabolic abnormality, cirrhosis Medical Records Attestation: I reviewed the patient's medical records. Home Medications Current Medication List: was personally reviewed by me Laboratory Data Attestation: I reviewed the patient's lab results. 02/20/24 07:41 02/20/24 07:41 Lab Results 02/20/24 Range/Units 07:41 WBC 5.27 (4.8-10.8) K/ul RBC 2.30 L (4.70-6.10) M/uL Hgb 7.3 L (14.0-18.0) g/dl Hct 22.8 L (42.0-52.0) % MCV 99.1 (80.0-100.0) fL MCH 31.7 (25.0-34.0) pg MCHC 32.0 (32.0-36.0) g/dL RDW Std Deviation 74.8 H (36.4-46.3) fL RDW Coeff of Violetta 20.6 H (11.5-14.5) % Plt Count 116 L (130-400) K/uL MPV 10.5 (9.4-12.4) fL Immature Gran % (Auto) 1.1 % Neut % (Auto) 74.2 % Lymph % (Auto) 15.9 % Irion % (Auto) 4.6 % Eos % (Auto) 3.6 % Baso % (Auto) 0.6 % Neut # (Auto) 3.91 (1.40-6.50) K/uL Lymph # (Auto) 0.84 L (1.20-3.40) K/uL Irion # (Auto) 0.24 (0.11-0.59) K/uL Eos # (Auto) 0.19 (0.00-0.50) K/uL Baso # (Auto) 0.03 (0.00-0.20) K/uL Immature Gran # (Auto) 0.06 (0.01-0.20) K/uL Polychromasia 1+ Anisocytosis Present Tear Drop Cells 2+ PT 12.4 H (9.0-12.0) Seconds INR 1.1 (0.9-1.1) APTT 30 (21-31) Seconds PTT Ratio 1.1 Sodium 140 (136-145) mmol/L Potassium 4.3 (3.5-5.1) mmol/L Chloride 114 H (98-107) mmol/L Carbon Dioxide 22 (21-32) mmol/L Anion Gap 4 (3-11) BUN 27 H (6-23) mg/dl Creatinine 1.22 (0.6-1.4) mg/dl Est Cr Clr Drug Dosing 55.7 ml/min Est GFR ( Amer) 67.7 ml/min Est GFR (Non-Af Amer) 58.5 ml/min BUN/Creatinine Ratio 22.1 H (10-20) Glucose 200 H (70-99(Fasting)) mg/dl Calcium 7.5 L (8.6-10.3) mg/dl Total Bilirubin 1.4 H (0.2-1.0) mg/dl AST 34 (13-39) U/L ALT 19 (7-52) U/L Alkaline Phosphatase 259 H (34-104) U/L Total Protein 5.5 L (6.0-8.3) gm/dl Albumin 2.3 L (3.4-5.0) gm/dl Globulin 3.2 (2.5-4.0) gm/dl Albumin/Globulin Ratio 0.7 L (0.9-2) Lipase 31 (11-82) U/L Blood Type O Positive Antibody Screen NEGATIVE Crossmatch See Detail MDM Narrative This patient comes in as scribed above. He was seen in room B6. He was placed on a athletic monitor. Urinalysis and blood work was ordered by myself. IV access was established was typed and crossed for likely transfusion. He was reassessed frequently. He does have a complex medical history. His hemoglobin here was 7.3. He has been typed and crossed. He only has mild renal insufficiency and no significant electrolyte or metabolic abnormalities otherwise. His LFTs are minimally elevated consistent with his chronic liver disease. His urinalysis does not suggest a UTI. I do think he needs to be admitted/observed for further inpatient treatment and evaluation. I have consulted the [facility] hospitalist to see him in the ER for this measure and discussed the case at length with them. They are going to get urology involved as well. Impression & Plan Anemia, Hematuria, Cystitis, radiation, CKD (chronic kidney disease) stage 3, GFR 30-59 ml/min, Prostate cancer, Liver disease Discharge Plan Visit Data Chief Complaint: Hematuria Stated Complaint: HEMATURIA, HX OF BLADDER SURGERY ED Provider: Freddy Collier Discharge Problem: Anemia, Hematuria, Cystitis, radiation, CKD (chronic kidney disease) stage 3, GFR 30-59 ml/min, Prostate cancer, Liver disease Discharge Instructions Interventions: ED Discharge Assessment Last Done: 02/20/24 11:37 Discharge Problem: Anemia Qualifiers: Anemia type: unspecified type Qualified Code(s): D64.9 - Anemia, unspecified Hematuria Qualifiers: Hematuria type: gross Qualified Code(s): R31.0 - Gross hematuria CKD (chronic kidney disease) stage 3, GFR 30-59 ml/min Qualifiers: Chronic kidney disease stage 3 subtype: unspecified whether 3a or 3b Qualified Code(s): N18.30 - Chronic kidney disease, stage 3 unspecified
[2024-02-20 07:35] LABS: Appearance Urine Cloudy (Clear); Bilirubin Urine 1+ (Negative); Blood Urine 3+ (Negative); Color Urine Red; Glucose Urine UA Negative (Negative); Ketones Urine Negative (Negative); Leukocyte Esterase Urine Negative (Negative); Nitrite Urine Negative (Negative); Protein Urine 3+ (Negative); Specific Gravity Urine 1.025 (1.000-1.030); Urobilinogen Urine Negative (Negative)
[2024-02-20 07:42] LABS: RBC Urine >30 /hpf (0-4)
[2024-02-20 07:48] LABS: Epithelial Cell Urine 0-5 /lpf (0-5)
[2024-02-20 07:50] LABS: Bacteria Urine Negative (Negative)
[2024-02-20 08:07] LABS: Basophils # (auto) 0.03 K/uL (0.00-0.20); Basophils % (auto) 0.6 %; Eosinophils # (auto) 0.19 K/uL (0.00-0.50); Eosinophils % (auto) 3.6 %; Hematocrit (blood only) 22.8 % (42.0-52.0); Hemoglobin 7.3 g/dl (14.0-18.0); Immature Granulocytes # (auto) 0.06 K/uL (0.01-0.20); Immature Granulocytes % (auto) 1.1 %; Lymphocytes # (auto) 0.84 K/uL (1.20-3.40); Lymphocytes % (auto) 15.9 %; Mean Corpuscular Hemoglobin 31.7 pg (25.0-34.0); Mean Corpuscular Volume 99.1 fL (80.0-100.0); Mean Platelet Volume 10.5 fL (9.4-12.4); Monocytes # (auto) 0.24 K/uL (0.11-0.59); Monocytes % (auto) 4.6 %; Neutrophils # (auto) 3.91 K/uL (1.40-6.50); Neutrophils % (auto) 74.2 %; Platelet Count 116 K/uL (130-400); RDW Coefficient of Variation 20.6 % (11.5-14.5); RDW Standard Deviation 74.8 fL (36.4-46.3); White Blood Count 5.27 K/ul (4.8-10.8)
[2024-02-20 08:26] LABS: Albumin Globulin Ratio 0.7 (0.9-2); Albumin Level 2.3 gm/dl (3.4-5.0); BUN Creatinine Ratio 22.1 (10-20); Bilirubin,Total 1.4 mg/dl (0.2-1.0); Calcium 7.5 mg/dl (8.6-10.3); Creatinine Clr Calc Pharmacy 55.7 ml/min; Est GFR (African American) 67.7 ml/min; Est GFR (Non-African American) 58.5 ml/min; Globulin 3.2 gm/dl (2.5-4.0); Potassium 4.3 mmol/L (3.5-5.1); Total Protein 5.5 gm/dl (6.0-8.3)
[2024-02-20 08:33] LABS: Anisocytosis Present; Polychromasia 1+; Tear Drop Cells 2+
[2024-02-20 08:43] LABS: INR 1.1 (0.9-1.1); Partial Thromboplastin Ratio 1.1; Partial Thromboplastin Time 30 Seconds (21-31); Prothrombin Time 12.4 Seconds (9.0-12.0)
--- NOTE | 2024-02-20 10:05 | History & Physical Report ---
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: (5) Depression: (6) Prostate cancer: (7) CKD (chronic kidney disease) stage 3, GFR 30-59 ml/min: (8) Insulin dependent type 2 diabetes mellitus: Plan This is a 73-year-old male with PMH of type 2 diabetes, restrictive lung disease, hyperlipidemia, chronic gout, pulmonary hypertension, gout, esophageal varices, portal vein thrombosis, prolonged QT, mild mitral regurgitation, aortic valve sclerosis, cirrhosis of liver status post TIPS, GERD, hepatocellular carcinoma s/p embolization, prostate cancer s/p radiation, radiation proctitis, protein calorie malnutrition, chronic kidney stage III, history of gross hematuria, acquired thrombocytopenia, iron deficiency anemia, CKD stage III, pancytopenia, psoriasis and presents with ongoing hematuria. Has been admitted in Jan and January (most recently from 02/02-) for worsening anemia in setting of hematuria, radiation proctitis and has received blood transfusions. Patient presented again on 02/12 in ED and underwent bladder irrigation with urology. Has not had mendoza in place for the past week. Primary urologist is Dr. Peraza. Due for [facility] this morning but decided to present to ED instead. Hematuria BPH/prostate cancer status post radiation H/o radiation cystitis Afebrile, hemodynamically stable Hemoglobin close to baseline at 7.3 despite chronic hematuria Removed Mendoza at home since last seen due to discomfort Transfusion 1 unit PRBCs now No overt infection on UA - 3+ blood, neg nitrite, neg leuk esterase Appreciate urology consult CKD III Cr at baseline 1.22. Continue to monitor 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 Hepatocellular carcinoma status post IR embolization History GAVE/esophageal varices/portal hypertensive gastropathy/radiation proctitis/diverticulosis on endoscopy Appears euvolemic today Continue home Lasix, lactulose and Xifaxan and Protonix DM II A1c of 5.03 November 2023, repeat tomorrow Hold home agents SSI while in-patient BSG AC HS DVT Ppx: SCDs given hematuria Code status: FULL PCP: Tanna Dispo: observation med tele Patient seen in collaboration with Dr. Velazquez. Please see addendum. I spent a total of 60 minutes coordinating, documenting, and providing care for this patient excluding time spent in the performance of separately billed services. History of Present Illness Chief Complaint: hematuria Primary Care Provider: Francisco Cisse MD This is a 73-year-old male with PMH of type 2 diabetes, restrictive lung disease, hyperlipidemia, chronic gout, pulmonary hypertension, gout, esophageal varices, portal vein thrombosis, prolonged QT, mild mitral regurgitation, aortic valve sclerosis, cirrhosis of liver status post TIPS, GERD, hepatocellular carcinoma s/p embolization, prostate cancer s/p radiation, radiation proctitis, protein calorie malnutrition, chronic kidney stage III, history of gross hematuria, acquired thrombocytopenia, iron deficiency anemia, CKD stage III, pancytopenia, psoriasis and presents with ongoing hematuria. Has been admitted in Jan and January (most recently from 02/02-) for worsening anemia in setting of hematuria, radiation proctitis and has received blood transfusions. Patient presented again on 02/12 in ED and underwent bladder irrigation with urology. Has not had mendoza in place for the past week. Primary urologist is Dr. Peraza. Patient was due for blood transfusion in [facility] this morning but was afraid there would not be enough medical care if he had an episode of urinary incontinence and decided to present to ED instead. Denies any other acute or different symptoms. Has been urinating with presence of blood clots. Not sure he is completely voiding but has increased bladder pressure with standing. Has some urinary incontinence with bleeding but that is not new. Denies any F/C, lightheadedness, CP, SOB, N/V, abd pain, dysuria, diarrhea or constipation. 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 Primary urologist is Dr. Peraza. Allergies Allergy/AdvReac Type Severity Reaction Status Date / Time No Known Allergies Allergy Mild Verified 02/20/24 09:25 Home Medications Medication Instructions Recorded Confirmed Type allopurinol 100 mg tablet 100 mg PO QAM 05/16/20 02/20/24 History finasteride 5 mg tablet 5 mg PO QAM 11/03/21 02/20/24 History furosemide 20 mg tablet (Lasix) 40 mg PO QAM 11/02/22 02/20/24 History insulin glargine 100 unit/mL 27 unit subcut QPM 11/05/22 02/20/24 History subcutaneous solution (Lantus U-100 Insulin) acetaminophen 325 mg tablet 650 mg PO Q8H PRN Fever Or Pain 02/24/23 02/20/24 History (Tylenol) Lactobacil.acidophilus-Bifido.animalis 1 cap PO QAM 05/17/23 02/20/24 History 5 billion cell sprinkle capsule (Probiotic) acetylcysteine 600 mg capsule 1,200 mg PO QAM 05/17/23 02/20/24 History ferrous sulfate 325 mg (65 mg 650 mg PO QAM 05/17/23 02/20/24 History iron) tablet (iron) mstzibtuxhti-xkq-ntaei acid-vit 1 tab PO DAILY 05/17/23 02/20/24 History K-lycop 400 mcg-20 mcg-370 mcg tablet (Men's 50 Plus Multivitamin) duloxetine 30 mg capsule,delayed 30 mg PO QAM 02/02/24 02/20/24 History release pantoprazole 40 mg tablet,delayed 40 mg PO AMPM 02/02/24 02/20/24 History release rifaximin 550 mg tablet (Xifaxan) 550 mg PO AMHS 02/02/24 02/20/24 History tramadol 50 mg tablet 50 mg PO Q6 PRN pain,severe 02/02/24 02/20/24 History oxybutynin chloride 5 mg tablet 5 mg PO BID #60 tabs 02/11/24 02/20/24 Rx zinc gluconate 50 mg tablet 0 mg PO DAILY 02/13/24 02/20/24 History lactulose 10 gram/15 mL oral 10 g PO BID 02/20/24 02/20/24 History solution metoclopramide HCl 5 mg tablet 5 mg PO TID PRN Nausea And Vomiting 02/20/24 02/20/24 History Past Med/Surg History Medical History Atypical chest pain Radiation cystitis History of blood transfusion 11/2022 Hepatocellular carcinoma Spinal fracture of T12 vertebra History of recent hospitalization 06/2023 [facility] hepatic encephalopathy Insulin dependent type 2 diabetes mellitus Liver spots Under surveillance, stable per patient Anxiety and depression 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 Anemia of chronic disease under surveillance Prostate cancer Hx radiation History of panic attacks Gout No current issues GERD (gastroesophageal reflux disease) GAVE (gastric antral vascular ectasia) CKD (chronic kidney disease) stage 3, GFR 30-59 ml/min Hypertension Hx Esophageal varices EGD 05/22/23 ([facility]): Grade 1 varices in distal esophagus without high risk stigmata Upper GI bleed Hx Psoriasis Surgical History History of left cataract surgery History of right cataract surgery History of prostate biopsy malignant S/P TIPS (transjugular intrahepatic portosystemic shunt) History of esophagogastroduodenoscopy (EGD) Most recent 05/2023 [facility] History of colonoscopy with polypectomy History of tonsillectomy and adenoidectomy History of abdominal paracentesis Multiple, most recent 01/2023 Family History Father , "3/4 liver gone due to drinking" Colorectal cancer, Onset Age: 63 Mother Lung cancer Daughter Cancer cervical and thyroid cancers Ovarian cancer Other No family history of adverse response to anesthesia 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 Smoking Status: Never smoker Second Hand Exposure: No; Do You Dip or Chew Tobacco: No; Hx Alcohol Use: No Hx Substance Use: No Preferred Language: Cape Verdean Communication Ability: Effective Visual Impairment: No Limitations Hearing Ability: Normal Triage Nurse Required: No Beliefs That Will Affect Care: None marital status: Current Living Situation: Spouse Current Living Situation Comment: 1 level single family home 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 How many Children do You have: 6 How many Children do You have Comment: one , eldest daughter in her sleep from seizure disorder Other Information That Helps Us Care for You: No Feels Safe at Home: Yes Safety Concerns: Feels Safe At This Time Childhood Exposure to Second-Hand Smoke: Yes Diet Comment: "I watch my sugar, average fasting is 140 mg/dl" caffeine: Yes (cola, sugar free, decaf) during the past year weight has: remained stable Dental Care, Regularly: No Physical Activity Frequency: Does not Exercise Seatbelt Use: always Sunscreen Use: Yes Assistive Devices: Glasses and Walker Review of Systems Review of Systems: At least ten systems reviewed and negative except as noted in the HPI. Physical Exam Physical Exam: Please see Dr. Velazquez' addendum for physical exam. Results & Data Results & Data Vital Signs (Past 12 Hours) Vital Signs Temp Pulse Pulse Resp BP BP Pulse Ox 02/20/24 10:00 36.5 C 65 16 129/70 98 02/20/24 09:51 36.5 C 71 14 141/58 H 99 02/20/24 09:43 63 02/20/24 09:01 63 14 134/63 02/20/24 07:51 63 02/20/24 07:51 62 18 100 02/20/24 06:03 62 23 127/66 98 02/20/24 05:58 64 02/20/24 05:51 66 16 143/72 H 98 O2 Del Method 02/20/24 10:00 02/20/24 09:51 02/20/24 09:43 02/20/24 09:01 02/20/24 07:51 02/20/24 07:51 02/20/24 06:03 Room Air 02/20/24 05:58 02/20/24 05:51 Room Air Laboratory Results Short CBC 02/20/24 Range/Units 07:41 WBC 5.27 (4.8-10.8) K/ul Hgb 7.3 L (14.0-18.0) g/dl Hct 22.8 L (42.0-52.0) % Plt Count 116 L (130-400) K/uL BMP 02/20/24 07:41 Sodium 140 Potassium 4.3 Chloride 114 H Carbon Dioxide 22 BUN 27 H Creatinine 1.22 Glucose 200 H Calcium 7.5 L Liver Function 02/20/24 Range/Units 07:41 Total Bilirubin 1.4 H (0.2-1.0) mg/dl AST 34 (13-39) U/L ALT 19 (7-52) U/L Alkaline Phosphatase 259 H (34-104) U/L Albumin 2.3 L (3.4-5.0) gm/dl Urine 02/20/24 Range/Units Unknown Urine Color Red Urine Appearance Cloudy A (Clear) Urine pH 7.0 (4.5-7.5) Ur Specific [place] 1.025 (1.000-1.030) Urine Protein 3+ H (Negative) Urine Glucose (UA) Negative (Negative) Supervising Physician Co-Signing Physician Notes I have seen and discussed the case with the collaborating advanced practitioner. I agree with the above H&P. I have reviewed and confirmed the patients medical history, the findings on physical examination, and the patients diagnosis and treatment plan with Amari ARCEO and agree with the information documented. In short, Mr. Hale is a 73 year old gentleman with complicated past medical history notable for decompensated FOFANA cirrhosis s/p TIPS procedure, prostate cancer s/p radiation c/b radiation cystitis who is admitted due to ongoing hematuria requiring transfusion. Patient with frequent blood clots and often causing retention and pain. Patient scheduled to be seen in [facility], but presented to ED due to worry over urinary symptoms. Patient with a mendoza as OP, but given issues with irrigation removed and refuses mendoza at this time, GENERAL APPEARANCE: AxOx4,tired appearing gentleman , no acute distress. HEENT: NC, AT. MMM. EOMI, clear conjunctiva, oropharynx clear. NECK: Supple without lymphadenopathy. No stiffness or restricted ROM. HEART: Normal rate and regular rhythm, WINTER+ LUNGS: CTAB, moving air well. No crackles or wheezes are heard. ABDOMEN: Soft, nontender, mildly protuberant BACK: No CVAT, no obvious deformity. EXTREMITIES: Without cyanosis, clubbing or edema. NEUROLOGICAL: Grossly nonfocal. Alert and oriented, moving all 4 extremities. CN not formally tested but appear grossly intact Skin: Warm and dry without any rash. #Acute on chronic anemia iso gross hematuria #Radiation cystitis -1 unit PRBC in ED, cardiology historically recommended goal of >8 given EKG changes noted previous -Follow repeat hgb, transfuse <8 -Declined mendoza -Urology consulted Rest of plan as above I spent a total of 35 minutes coordinating, documenting, and providing care for this patient excluding time spent in the performance of separately billed services. All of the aforementioned completed outside of collaborating with the assigned advanced practitioner for a full treatment plan. I have reviewed the advanced practitioner's documentation, and I agree with, and take responsibility for the plan of care
[2024-02-20] MEDS ORDERED: POLYETHYLENE (MIRALAX) 17 GM PACK PO PRN (12:07)
[2024-02-20] MEDS ORDERED: ONDANSETRON INJ 2 MG/ML 2 ML VIAL IV PRN (12:07)
[2024-02-20] MEDS ORDERED: ACETAMINOPHEN 325 MG TAB PO PRN (12:07)
[2024-02-20] MEDS ORDERED: METOCLOPRAMIDE HCL 5 MG TABLET PO PRN (12:27)
[2024-02-20] MEDS ORDERED: GLUCOSE 10 TAB/TUBE PO PRN (12:29)
[2024-02-20] MEDS ORDERED: GLUCOSE 40% GEL 15 GM TUBE PO PRN (12:29)
[2024-02-20] MEDS ORDERED: GLUCAGON FOR INJ 1 MG VIAL SQ PRN (12:29)
[2024-02-20] MEDS ORDERED: DEXTROSE 50% 50 ML SYRINGE IV PRN (12:29)
[2024-02-20] MEDS ORDERED: CARBOHYDRATES FOR HYPOGLYCEMIA PO PRN (12:29)
[2024-02-20] MEDS: INSULIN ASPART PER UNIT CHARGE SC SCH (13:06)
--- NOTE | 2024-02-20 13:24 | Urology Consultation ---
<Statement entered by Zane Salas MD - 02/21/24 06:07> I agree with the above documentation. Mr. Hale seems to be having ongoing hematuria from radiation cystitis. Unfortunately, fulguration/cauterization typically only provides temporary relief (as he just had this procedure done ~1 week ago). Ideally he will be able to go through a course of hyperbaric oxygen therapy, although this would be done as an outpatient. In the short term, I would recommend he stay well-hydrated to keep the urine as dilute as possible, try to avoid activities which exacerbate the bleeding. As long as he is voiding, no need for procedural intervention. Would recommend supportive care, transfuse if needed, check urine culture and treat if positive. 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 Patient is hemodynamically stable. Labs reviewed-hemoglobin 7.3, hematocrit 22.8, creatinine 1.22 Patient is anemic and receiving blood transfusion per primary team Urine culture is pending Patient is able to void spontaneously and passing clots likely related to fulguration treatment by Dr. Peraza. Urology would recommend the following: Monitor spontaneous voiding If patient unable to void for greater than 6 hours may perform CIC or place indwelling Kan catheter PVRs can be obtained however unlikely to be accurate due to current ascites Continue supportive care and management per primary team Monitor labs as indicated by primary team Antibiotics as indicated pending urine culture results Patient should follow-up with Dr. Peraza outpatient History of Present Illness Attending Physician: Ale Velazquez MD History of Present Illness 73-year-old male with a history of prostate cancer status post radiation treatment. He follows with Dr. Peraza of [facility] urology. He was supposed to have a blood transfusion at the [facility] center this morning however he presented to the ER instead. Urology was consulted due to gross hematuria. He underwent fulguration with Dr. Peraza on 01/30/2024. Per patient he had a catheter in until 02/13/2024. Patient has been hemodynamically stable and afebrile in the ER. No imaging was completed. UA 3+ protein, 3+ blood, 1+ bilirubin, greater than 30 RBCs, 10-30 WBCs, all others negative Urine culture is pending Labs reviewed: Hemoglobin 7.3 Hematocrit 22.8% WBCs 5.27 Creatinine 1.22 Patient was seen at bedside and evaluated in the ED. He says since catheter removal he has been having significant incontinence and passing quarter size clots. He denied fevers, chills, nausea, vomiting on presenting to the ER. 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 He states that he came to the ER as they would be better to handle " the blood dripping down my leg" versus the [facility] center. He has been in the process of scheduling hyperbariatric treatments for radiation cystitis. He is unsure when he is to follow-up with Dr. Peraza. At home he has been admitting to urinary urgency, frequency, incontinence, gross hematuria. He has been using depends and washcloths for the hematuria with incontinence. Patient has a history of ascites related to liver cirrhosis secondary to [place]. Patient is also being worked up for possible liver transplant. Allergies Allergy/AdvReac Type Severity Reaction Status Date / Time No Known Allergies Allergy Mild Verified 02/20/24 09:25 Home Medications Medication Instructions Recorded Confirmed Type allopurinol 100 mg tablet 100 mg PO QAM 05/16/20 02/20/24 History finasteride 5 mg tablet 5 mg PO QAM 11/03/21 02/20/24 History furosemide 20 mg tablet (Lasix) 40 mg PO QAM 11/02/22 02/20/24 History insulin glargine 100 unit/mL 27 unit subcut QPM 11/05/22 02/20/24 History subcutaneous solution (Lantus U-100 Insulin) acetaminophen 325 mg tablet 650 mg PO Q8H PRN Fever Or Pain 02/24/23 02/20/24 History (Tylenol) Lactobacil.acidophilus-Bifido.animalis 1 cap PO QAM 05/17/23 02/20/24 History 5 billion cell sprinkle capsule (Probiotic) acetylcysteine 600 mg capsule 1,200 mg PO QAM 05/17/23 02/20/24 History ferrous sulfate 325 mg (65 mg 650 mg PO QAM 05/17/23 02/20/24 History iron) tablet (iron) dfagnmlkwqut-mco-wblxg acid-vit 1 tab PO DAILY 05/17/23 02/20/24 History K-lycop 400 mcg-20 mcg-370 mcg tablet (Men's 50 Plus Multivitamin) duloxetine 30 mg capsule,delayed 30 mg PO QAM 02/02/24 02/20/24 History release pantoprazole 40 mg tablet,delayed 40 mg PO AMPM 02/02/24 02/20/24 History release rifaximin 550 mg tablet (Xifaxan) 550 mg PO AMHS 02/02/24 02/20/24 History tramadol 50 mg tablet 50 mg PO Q6 PRN pain,severe 02/02/24 02/20/24 History oxybutynin chloride 5 mg tablet 5 mg PO BID #60 tabs 02/11/24 02/20/24 Rx zinc gluconate 50 mg tablet 0 mg PO DAILY 02/13/24 02/20/24 History lactulose 10 gram/15 mL oral 10 g PO BID 02/20/24 02/20/24 History solution metoclopramide HCl 5 mg tablet 5 mg PO TID PRN Nausea And Vomiting 02/20/24 02/20/24 History Patient History Medical History Atypical chest pain Radiation cystitis History of blood transfusion 11/2022 Hepatocellular carcinoma Spinal fracture of T12 vertebra History of recent hospitalization 06/2023 [facility] hepatic encephalopathy Insulin dependent type 2 diabetes mellitus Liver spots Under surveillance, stable per patient Anxiety and depression Liver cirrhosis secondary to [place] Anemia of chronic disease under surveillance Prostate cancer Hx radiation History of panic attacks Gout No current issues GERD (gastroesophageal reflux disease) GAVE (gastric antral vascular ectasia) CKD (chronic kidney disease) stage 3, GFR 30-59 ml/min Hypertension Hx Esophageal varices EGD 05/22/23 ([facility]): Grade 1 varices in distal esophagus without high risk stigmata Upper GI bleed Hx Psoriasis Surgical History History of left cataract surgery History of right cataract surgery History of prostate biopsy malignant S/P TIPS (transjugular intrahepatic portosystemic shunt) History of esophagogastroduodenoscopy (EGD) Most recent 05/2023 [facility] History of colonoscopy with polypectomy History of tonsillectomy and adenoidectomy History of abdominal paracentesis Multiple, most recent 01/2023 Family History Father , "3/4 liver gone due to drinking" Colorectal cancer, Onset Age: 63 Mother Lung cancer Daughter Cancer cervical and thyroid cancers Ovarian cancer Other No family history of adverse response to anesthesia 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 Smoking Status: Never smoker Second Hand Exposure: No; Do You Dip or Chew Tobacco: No; Hx Alcohol Use: No Hx Substance Use: No Preferred Language: Kyrgyz Communication Ability: Effective Visual Impairment: No Limitations Hearing Ability: Normal Line Up Examiner Required: No Beliefs That Will Affect Care: None marital status: Current Living Situation: Spouse Current Living Situation Comment: 1 level single family home 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 How many Children do You have: 6 How many Children do You have Comment: one , eldest daughter in her sleep from seizure disorder Other Information That Helps Us Care for You: No Feels Safe at Home: Yes Safety Concerns: Feels Safe At This Time Childhood Exposure to Second-Hand Smoke: Yes Diet Comment: "I watch my sugar, average fasting is 140 mg/dl" caffeine: Yes (cola, sugar free, decaf) during the past year weight has: remained stable Dental Care, Regularly: No Physical Activity Frequency: Does not Exercise Seatbelt Use: always Sunscreen Use: Yes Assistive Devices: Glasses and Walker Review of Systems Review of Systems: 14 point review of systems negative exce pt for otherwise indicated. Physical Exam Constitutional: well developed and well nourished; no acute distress Eyes: + anicteric sclerae; pupils not irregula r Respiratory: normal respiratory effort; no respiratory distress, does not use accessory muscles and normal respiratory pattern Cardiovascular: well perfused Gastrointestinal (Abdomen): Inspection/Auscultation: + abdomen distended Percussion/Palpation: abdomen soft; abdomen nontender Musculoskeletal: Extremities: extremities normal to inspection Skin: no rashes, warm and dry normal turgor Neurologic: moves all extremities and awake Speech / Cognition: normal speech Psychiatric: Orientation: alert and oriented x 3 Eye Contact: good eye contact Results & Data Vital Signs (Past 12 Hours) Vital Signs Temp Pulse Pulse Resp BP BP Pulse Ox 02/20/24 12:41 72 16 145/73 H 100 02/20/24 11:00 36.6 C 57 L 16 117/57 L 100 02/20/24 10:45 36.5 C 68 14 124/63 95 02/20/24 10:30 36.5 C 71 16 138/64 92 02/20/24 10:15 36.5 C 68 14 129/77 98 02/20/24 10:00 36.5 C 65 16 129/70 98 02/20/24 09:51 36.5 C 71 14 141/58 H 99 02/20/24 09:43 63 02/20/24 09:01 63 14 134/63 02/20/24 07:51 63 02/20/24 07:51 62 18 100 02/20/24 06:03 62 23 127/66 98 02/20/24 05:58 64 02/20/24 05:51 66 16 143/72 H 98 O2 Del Method 02/20/24 12:41 Room Air 02/20/24 11:00 02/20/24 10:45 02/20/24 10:30 02/20/24 10:15 02/20/24 10:00 02/20/24 09:51 02/20/24 09:43 02/20/24 09:01 02/20/24 07:51 02/20/24 07:51 02/20/24 06:03 Room Air 02/20/24 05:58 02/20/24 05:51 Room Air PG Care Time/CCT Total # of Minutes Spent Total Time Spent with Patient: Total time spent is greater than 50% in coordination of care (as documented) at patient's floor/unit and/or counseling patient: Coding Level of Care Code 31828 INT INP/OBS CARE 2/55MIN Diagnoses Gross hematuria R31.0 Hematuria type: gross Cystitis, radiation N30.40 Daily urinary incontinence R32 (1) Hematuria Hematuria type: gross Qualified Code(s): R31.0 - Gross hematuria
[2024-02-20] MEDS: traMADol HCL 50 MG TABLET PO PRN (13:30)
[2024-02-20] MEDS: PANTOprazole 40 MG TAB PO SCH (13:30)
--- OUTSIDE RECORDS SUMMARY | 2024-02-20 15:23 | External Medical Summary | Summary of Care ---
Author Name Unknown Organization [facility] Address [address] [facility] [place] [place] [address] Phone [phone] Care Team Providers Care Pouncer Name Role Phone Francisco Cisse MD Primary Care Provider + Reason for Visit * Reason Onset Date Comments Test Results Lab 02/18/2024 Encounter Details Date Type Department Care Team (Late st Contact Info) Description 02/18/2024 Telephone Hematology/Oncology [facility] 200 [facility] [phone] Ayaka Tatum CRNP 400 [facility] [place] [address] Test Results Lab Allergies No known active allergiesdocumented as of this encounter (statuses as of 02/19/2024) Medications Medication Sig Dispensed Refills Start Date End Date Status Tylenol 325 MG Oral Capsule (Acetaminophen) Take 650 mg by mouth every 8 hours as needed for Pain (fever). 0 Active OneTouch Verio In Vitro Strip (Glucose Blood)Indications:Ty pe 2 diabetes mellitus with hemoglobin A1c goal of less than 7.0% ([facility]) Use to test blood sugars [...] on 01/30/2024 Allopurinol 100 MG Oral Tablet (Zyloprim)Indication s:Gout [...] Subcutaneous Solution Pen-injector once. 0 11/13/2023 Active amLODIPine Besylate 5 MG Oral Tablet [...] Pain, Severe. 10 Tablet 0 01/30/2024 Active Hospital, Clinic, or Other Facility Administered [...] as of this encounter (statuses as of 02/19/2024) Active Problems Problem Noted Date Diagnosed Date [...] as of this encounter (statuses as of 02/19/2024) Resolved Problems Problem Noted Date Diagnosed Date [...] as of this encounter (statuses as of 02/19/2024) Immunizations Name Administration Dates Next Due COVID-19 mRNA, LNP-s, No Pre serve, 2-Dose Series (Locately) 03/08/2021,02/15/2021 HepA Inact/HepB Recomb>=18yrs old 12/04/2019,04/2019,05/20/2019 11/19/2019 [...] Telephone Encounter - Josephine Murphy RN - 02/19/2024 12:23 PM EDT [facility] hospitalist will consent patient for transfusion- updated [facility]. * Telephone Encounter - Kaylie Glass LPN - 02/19/2024 11:28 AM EDT Spoke with patient. States [facility] is to call him this afternoon. I also left a message for wound care asking them to call to confirm records and referral were received. Patient states he is willing to have fulguration only if there is no catheter involved afterwards. Please advise. Thank you Gudelia * Telephone Encounter - Frank Peraza MD - 02/19/2024 10:28 AM EDT Let us ensure that the process is ongoing for the patient to see Wound Care for hyperbaric oxygen consideration. If the patient or son desire, we can tentatively schedule him for repeat cystoscopy with bipolar button fulguration at next available OR date. This was previously discussed in the decision was to defer at the time, but we can add on if they desire. Thanks, HM * Telephone Encounter - Kaylie Glass LPN - 02/19/2024 9:[address] Peraza: Patient states he is still have gross hematuria, see below. Please advise if anything needs to be done at this time. Passed TO on 02/16. Thank you Gudelia * Telephone Encounter - Josephine Murphy RN - 02/19/2024 9:11 AM EDT Patient called in and sent MyG to have transfusion set up. Attempted to call patients son as he provides transportation for patient. Left message for Alex. Called patient. He states that he will be able to get transportation for a transfusion tomorrow. His son would prefer policy change clerks supervisor appt Patient to receive 1 unit PRBC for hgb 7.0. Called [facility] blood bank. No issues with having blood available pending changes to T&S. Called [facility] ([place]) and central scheduling ([place]). Patient scheduled for tomorrow at 7am. Patient verbalized understanding of appt time. Faxed order to [facility]/ blood bank. Message sent to Mukul to see if hospitalist can consent patient tomorrow- will need to follow up with [facility] to confirm this once we hear back. Urology: patient states that he is still peeing a lot of blood since his bladder was cauterized, advised him to follow up with you * Telephone Encounter - Abdoul Oliva, KAITLYNN - 02/18/2024 2:39 PM EDT Called home phone, answered, then disconnected. Tried calling back, unable to speak with patient astheir phone continues to disconnect. Called Alex, patients EC, no answer, LMOM with return #. Sent MyG. * Telephone Encounter - Ayaka Tatum CRNP - 02/18/2024 2:17 PM EDT Results for orders placed or performed in visit on 02/18/24 CBC Result Value Ref Range WBC 4.58 4.00 - 10.80 K/uL RBC 2.16 4.50 - 5.25 M/uL HGB 7.0 (L) 14.0 - 16.8 g/dL HCT 22.0 (L) 40.0 - 48.4 % MCV 101.9 82.0 - 99.5 fL MCH 32.4 27.0 - 34.0 pg MCHC 31.8 32.0 - 36.0 g/dL RDW 20.6 11.5 - 15.5 % PLT 130 (L) 140 - 400 K/uL MPV 11.3 6.6 - 11.1 fL DIFFERENTIAL, AUTOMATED Result Value Ref Range WBC 4.58 4.00 - 10.80 K/uL Neutrophils % 73.2 40.0 - 75.0 % Lymphocytes % 15.7 (L) 18.0 - 42.0 % Monocytes % 5.0 1.0 - 11.0 % Eosinophils % 5.2 0.0 - 6.0 % Basophils % 0.9 0.0 - 2.0 % Absolute Neutrophils 3.35 1.80 - 7.70 K/uL Absolute Lymphocytes 0.72 (L) 1.00 - 4.80 K/ul Absolute Monocytes 0.23 0.00 - 1.10 K/uL Absolute Eosinophils 0.24 0.00 - 0.70 K/uL Absolute Basophils 0.04 0.00 - 0.20 K/uL *Note: Due to a large number of results and/or encounters for the requested time period, some results have not been displayed. A complete set of results can be found in Results Review. Hgb has declined to 7. Likely related to ongoing blood loss from chronic hematuria. Saw Urology on 02/13. Please assist patient in scheduling 1 unit PRBC transfusion at [facility]. With T&S please fax order for patient to have ferritin and iron screen drawn prior to transfusion. Orders placed. Repeat CBCd in one week. documented in this encounter Plan of Treatment Upcoming Encounters Date Type Department Care Team (Late st Contact Info) Description 02/24/2024 10:45 AM EDT Imaging Radiology [facility] [address] [place] [address] 03/03/2024 8:40 AM EDT Laboratory Lab Mobile Phlebotomy [facility] [address] [place] [address] [facility] Mobile Home Draw [address] [place] [address] 03/13/2024 2:00 PM EDT Office Visit Dermatology [facility] 200 [place] [address] Francisco Watson MD 200 [place] [address] 03/17/2024 8:40 AM EDT Laboratory Lab Mobile Phlebotomy [facility] [address] [place] [address] [facility] Mobile Home Draw [address] [place] [address] 03/18/2024 11:00 AM EDT Office Visit Urology, [facility] [address] [place] [address] Frank Peraza MD [address] [address] [place] [address] 03/24/2024 2:30 PM EDT Office Visit Hematology/Oncology [facility] [place] 200 [facility], [place] [address] Ayaka Tatum CRNP 400 [facility] [place] [address] 03/30/2024 12:00 PM EDT Office Visit Family Practice [facility] 132 [facility] [place] [address] Kristen Vences DO 132 [facility] [place] [address] 03/31/2024 8:40 AM EDT Laboratory Lab Mobile Phlebotomy [facility] [address] [place] [address] [facility] Mobile Home Draw [address] [place] [address] 04/07/2024 10:00 AM EDT Office Visit Gastroenterology, [facility] 132 [facility] [place] [address] Lamar Tatum CRNP 132 [facility] [address] 04/14/2024 8:40 AM EDT Laboratory Lab Mobile Phlebotomy [facility] [address] [place] [address] [facility] Mobile Home Draw [address] [place] [address] 04/28/2024 8:40 AM EDT Laboratory Lab Mobile Phlebotomy [facility] [address] [place] [address] [facility], [facility] Mobile Home Draw [address] [place] [address] 05/12/2024 8:40 AM EDT Laboratory Lab Mobile Phlebotomy [facility] [address] [place] [address] [facility], [facility] Mobile Home Draw [address] [place] [address] 05/26/2024 8:40 AM EDT Laboratory Lab Mobile Phlebotomy [facility] [address] [place] [address] [facility], [facility] Mobile Home Draw [address] [place] [address] 06/09/2024 8:40 AM EDT Laboratory Lab Mobile Phlebotomy [facility] [address] [place] [address] [facility], [facility] Mobile Home Draw [address] [place] [address] 06/23/2024 8:40 AM EDT Laboratory Lab Mobile Phlebotomy [facility] [address] [place] [address] [facility], [facility] Mobile Home Draw [address] [place] [address] 07/07/2024 8:40 AM EDT Laboratory Lab Mobile Phlebotomy [facility] [address] [place] [address] [facility], [facility] Home Draw [address] [place] [address] 07/21/2024 8:40 AM EDT Laboratory Lab Mobile Phlebotomy [facility] [address] [place] [address] [facility], [facility] Mobile Home Draw [address] [place] [address] 08/04/2024 8:40 AM EDT Laboratory Lab Mobile Phlebotomy [facility] [address] [place] [address] [facility], [facility] Mobile Home Draw [address] [place] [address] 08/18/2024 8:40 AM EDT Laboratory Lab Mobile Phlebotomy [facility] [address] [place] [address] [facility], [facility] Mobile Home Draw [address] [place] [address] 08/20/2024 10:15 AM EDT Office Visit Ophthalmology, [facility] [address] [place] [address] Cody Gonzalez DO [address] [place] [address] 09/01/2024 8:40 AM EDT Laboratory Lab Mobile Phlebotomy [facility] [address] [place] [address] [facility] Mobile Home Draw [address] [place] [address] 09/15/2024 8:40 AM EDT Laboratory Lab Mobile Phlebotomy [facility] [address] [place] [address] [facility] Mobile Home Draw [address] [place] [address] Scheduled Orders Name Type Priority Associated Diagnoses Orde r Schedule FERRITIN Lab STAT Iron deficiency anemia, unspecified iron deficiency anemia type Expected: 02/19/2024 (Approximate), Expires: 05/20/2024 IRON SCREEN, INCLUDING TIBC Lab STAT Iron deficiency anemia, unspecified iron deficiency anemia type Expected: 02/19/2024 (Approximate), Expires: 05/20/2024 CBC WITH WBC DIFFERENTIAL Lab STAT Iron deficiency anemia, unspecified iron deficiency anemia type Expected: 02/25/2024, Expires: 05/20/2024 Scheduled Procedures Name Priority Associated Diagnoses Date/Ti me COLONOSCOPY FLEXIBLE PROXIMAL DIAGNOSTIC Recall History of colonic polyps Portal hypertensive gastropathy (HCC) ESOPHAGOGASTRODUODENOSCOPY ( EGD), FLEXIBLE, TRANSORAL, DIAGNOSTIC Recall History of colonic polyps Portal hypertensive gastropathy (HCC) Health Maintenance Due Date Last Done Comments Depression Screening 05/03/2022 05/03/2021 Zoster Vaccines (2 of 2) 12/13/2023 10/18/2023 Diabetic Eye Exam 01/17/2024 01/17/2023, , 01/17/2023, Additional history exists CKD PHOS USE SMARTSET 47730 01/28/202401/03, 07/26/2022, 12/05/2021, Additional history exists Diabetic Foot Exam 03/06/2024 03/06/2023, 0 01/03/2022, 03/02/2021, Additional history exists HbA1c 05/28/2024 11/27/2023, 05/03, 01/28/2023, Additional history exists Albumin/Creatinine Ratio 07/12/2024 023, 10/01/2022, 09/11/2021, Additional history exists COLONOSCOPY-ANNUAL AGES 18-100 08/09/2024 08/09/2023, 11/07/2022, 11/07/2022, Additional history exists GFR 08/15/2024 02/13/2024, 01/03, 01/17/2024, Additional history exists CKD HGB USE SMARTSET 09158 02/17/202502/17, 02/18/2024, 02/13/2024, Additional history exists Lipid Panel 01/28/2028 01/28/2023, [...] Completed 10/11/2023, 09/15/2021, 09/15/2021, Additional history exists COVID-19 Vaccine Completed 10/18/2023, 06/2021, 02/15/2021 GARDASIL-HPV IMMUNIZATION SERIES Aged Out No longer eligible based on patient's age to complete this topic MENINGOCOCCAL (MENACTRA/MENVEO) Aged Out No longer eligible based on patient's age to complete this topic documented as of this encounter Medical Devices Implanted Type Area Rn Cardiac Rehab Device Identifier Shelf Expiration Date Model / Serial / Lot Clareon Iol Aspheric Hydrophobic Acrylic Iol Implanted:Qty: 1 on 04/23/2023 by Cody Gonzalez DO at OR [facility] Lens Left: Eye 11/12/2025 [id number] / [id number] / Viatorr Tips Endoprosthesis 8-10 Mm X 8cm / 2cm Implanted:Qty: 1 on 10/07/2020 by Go Alvarado MD at [facility] Right: Abdomen 03/03/2023 [id number] / / [id number] Description:Viatorr TIPS End oprosthesis 8-10 mm x 8cm / 2cm, Manufactored by [employer] Syr Pf 2ml Embospheres 100-300 - [id number] Implanted:Qty: 1 on 04/18/2021 by Kevin Lim DO at OR [facility] Left: Abdomen [employer] [id number] 11/25/2023 S220GH / / [id number] Lipiodol Injection - [id number] Implanted:Qty: 1 on 03/28/2022 at [facility] [employer] 03/01/2023 67775-31 01-2 / / [id number] Syr Pf 2ml Embospheres 100-300 - [id number] Implanted:Qty: 1 on 03/28/2022 at [facility] [employer] [id number] 08/31/2024 S220GH / / [id number] -5 Clareon Iol Aspheric Hydrophobic Acrylic Iol Implanted:Qty: 1 on 04/02/2023 by Cody Gonzalez DO at OR [facility] Right: Eye JAZMIN 11/12/2025 CNA0T0 / [id number] / documented as of this encounter Visit Diagnoses Diagnosis Iron deficiency anemia, unspecified iron deficiency anemia type- Primary documented in this encounter Advance Directives Documents on File Type Date Recorded 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 No Care Teams Pouncer Relationship Specialty Start Date End Date Francisco Cisse MD 200 [facility] [address] PCP - General Internal Medicine 09/04/21 documented as of this encounter
--- OUTSIDE RECORDS SUMMARY | 2024-02-20 15:23 | External Medical Summary | Summary of Care ---
Author Name Unknown Organization [facility] Address [address] [facility] [place] [address] Phone [phone] Care Team Providers Care Tow Truck Driver Name Role Phone Francisco Cisse MD Primary Care Provider + Reason for Visit * Reason Onset Date Comments Test Results Lab 02/18/2024 Encounter Details Date Type Department Care Team (Late st Contact Info) Description 02/18/2024 Telephone Hematology/Oncology [facility] 200 [facility] [address] Ayaka Tatum CRNP 400 [facility] [place] [address] Test Results Lab Allergies No [...] mRNA, LNP-s, No Pre serve, 2-Dose Series (MyCosmik) 03/08/2021,02/15/2021 HepA Inact/HepB Recomb>=18yrs old 12/04/2019,04/2019,05/20/2019 11/19/2019 PPD 06/18/2017, 3,01/09/2012,06/2011 Pneumococcal Conjugate Vacc, 13 Valent (Prevnar) 05/01/2017 Pneumococcal Polysaccharide PPV23 (Pneumovax) 08/28/2022,10/25/2015,07/14/2012 Season Influenza, Quad, PF, Adjuvanted, 65+ Yrs, IM (FLUAD) 10/07/2020(Deferred: Patient Refused - pt says he already had his shot last [facility] at [facility]y Lyons and Mckinley Cobian made aware) [...] encounter Miscellaneous Notes * Telephone Encounter - Kaylie Glass LPN - 02/19/2024 11:28 AM EDT Spoke with patient. States [place] [facility] is to call him [...] to be done at this time. Passed TOV on 02/16. Thank you Gudelia * Telephone Encounter - Josephine Murphy RN - 02/19/2024 9:11 AM EDT Patient called in and sent MyG to have transfusion set up. Attempted to call patients son as he provides transportation for patient. Left message for Alex. Called patient. He states that he will be able to get transportation for a transfusion tomorrow. His son would prefer school cleaner appt Patient to receive 1 unit PRBC for hgb 7.0. Called [facility] blood bank. No issues with having blood available pending changes to T&S. Called [facility] ([place]) and central scheduling ([place]). Patient scheduled for [...] with you * Telephone Encounter - Abdoul Oliva RN - 02/18/2024 2:39 PM EDT Called home phone, answered, then disconnected. Tried calling back, unable to speak with patient astheir phone continues to disconnect. Called Alex, patients EC, no answer, LMOM with return #. Sent MyG. * Telephone Encounter - Rc AyakaJEFF iRley - 02/18/2024 2:17 PM EDT Results for [...] in scheduling 1 unit PRBC transfusion at [facility]. With T&S please fax order for patient to have ferritin and iron screen drawn prior to transfusion. Orders placed. Repeat CBCd in one week. documented in this encounter Plan of Treatment Upcoming Encounters Date Type Department Care Team (Late st Contact Info) Description 02/24/2024 10:45 AM EDT Imaging Radiology [address] [place] [address] 03/03/2024 8:40 AM EDT Laboratory Lab Mobile Phlebotomy [facility] [address] [place] [address] [facility] Mobile Home Draw [address] [place] [address] 03/13/2024 2:00 PM EDT Office Visit Dermatology [facility] 200 [facility] [place] [address] Francisco Watson MD 200 [facility] [place] [address] 03/17/2024 8:40 AM EDT Laboratory Lab Mobile [facility]lebot[facility] [address] [place] [address] [facility], [facility] Mobile Home Draw [address] [place] [address] 03/18/2024 11:00 AM EDT Office Visit Urology, [facility] 132 [place] [address] Frank Peraza MD [address] [address] [place] [address] 03/24/2024 2:30 PM EDT Office Visit Hematology/Oncology [facility] 200 [facility] [place] [address] Ayaka Tatum CRNP [address] [place] [address] [place] [address] 03/30/2024 12:00 PM EDT Office Visit Family Practice [facility] [address] [place] [address] Kristen Vences DO [address] [place] [address] 03/31/2024 8:40 AM EDT Laboratory Lab Mobile Phlebotomy [facility] [address] [place] [address] [facility] Mobile Home Draw [address] [place] [address] 04/07/2024 10:00 AM EDT Office Visit Gastroenterology, [facility] [address] [place] [address] Lamar Tatum CRNP [address] [place] [address] 04/14/2024 8:40 AM EDT Laboratory Lab Mobile Phlebotomy [facility] [address] [place] [address] [facility] Mobile Home Draw [address] [place] [address] 04/28/2024 8:40 AM EDT Laboratory Lab Mobile Phlebotomy [facility] [address] [place] [address] [facility] Mobile Home Draw [address] [place] [address] 05/12/2024 8:40 AM EDT Laboratory Lab Mobile Phlebotomy C [address] [place] [address] [facility] Mobile Home Draw [address] [place] [address] 05/26/2024 8:40 AM EDT Laboratory Lab Mobile Phlebotomy C [address] [place] [address] [facility] Mobile Home Draw [address] [place] [address] 06/09/2024 8:40 AM EDT Laboratory Lab Mobile Phlebotomy [facility] [address] [place] [address] [facility] Mobile Home Draw [address] [place] [address] 06/23/2024 8:40 AM EDT Laboratory Lab Mobile Phlebotomy [facility] [address] [place] [address] [facility], [facility] Mobile Home Draw [address] [place] [address] 07/07/2024 8:40 AM EDT Laboratory Lab Mobile Phlebotomy [facility] [address] [place] [address] [facility], [facility] Mobile Home Draw [address] [place] [address] 07/21/2024 8:40 AM EDT Laboratory Lab Mobile Phlebotomy [facility] [address] [place] [address] [facility], [facility] Mobile Home Draw [address] [place] [address] 08/04/2024 8:40 AM EDT Laboratory Lab Mobile Phlebotomy [facility] [address] [place] [address] [facility], [facility] Mobile Home Draw [address] [place] [address] 08/18/2024 8:40 AM EDT Laboratory Lab Mobile Phlebotomy [facility] [address] [place] [address] [facility], [facility] Mobile Home Draw [address] [place] [address] 08/20/2024 10:15 AM EDT Office Visit Ophthalmology, [facility] 132 [facility] [place] [address] Cody Gonzalez DO 21 [facility] [place] [address] 09/01/2024 8:40 AM EDT Laboratory Lab Mobile [facility]bot[facility] [address] [place] [address] [facility], [facility] Mobile Home Draw [address] [place] [address] 09/15/2024 8:40 AM EDT Laboratory Lab Mobile Phlebot[facility] [address] [place], [place] [address] [facility], [facility] Mobile Home Draw [address] [place] [address] Scheduled Orders Name Type Priority Associated Diagnoses [...] Additional history exists CKD PHOS USE SMARTSET 59409 01/28/202401/03, 07/26/2022, 12/05/2021, Additional history exists Diabetic Foot Exam 03/06/2024 03/06/2023, 0 01/03/2022, 03/02/2021, Additional history exists HbA1c 05/28/2024 11/27/2023, 05/03, 01/28/2023, Additional history exists Albumin/Creatinine Ratio 07/12/2024 023, 10/01/2022, 09/11/2021, Additional history exists COLONOSCOPY-ANNUAL AGES 18-100 08/09/2024 08/09/2023, 11/07/2022, 11/07/2022, Additional history exists GFR 08/15/2024 02/13/2024, 01/03, 01/17/2024, Additional history exists CKD HGB USE SMARTSET 18098 02/17/202502/17, 02/18/2024, 02/13/2024, Additional history exists Lipid [...] this encounter Medical Devices Implanted Type Area Burial Vault Deliverer And Installer Device Identifier Shelf Expiration Date Model / Serial / Lot Clareon Iol Aspheric Hydrophobic Acrylic Iol Implanted:Qty: 1 on 04/23/2023 by Cody Gonzalez DO at OR [facility] Lens Left: Eye 11/12/2025 CNA0T0 / [id number] / Viatorr Tips Endoprosthesis 8-10 Mm X 8cm / 2cm Implanted:Qty: 1 on 10/07/2020 by Go Alvarado MD at [facility] Right: Abdomen 03/03/2023 [id number] / / [id number] Description:Viatorr TIPS End oprosthesis 8-10 mm x 8cm / 2cm, Manufactored by [employer] Syr Pf 2ml Embospheres 100-300 - [id number] Implanted:Qty: 1 on 04/18/2021 by Kevin Lim DO at OR [facility] Left: Abdomen [employer] [id number] 11/25/2023 S220GH / / [id number] -[id number] Lipiodol Injection - [id number] Implanted:Qty: 1 on 03/28/2022 at [facility] [employer] 03/01/2023 [id number] 01-2 / / [id number] Syr Pf 2ml Embospheres 100-300 - [id number] Implanted:Qty: 1 on 03/28/2022 at [facility] [employer] [id number] 08/31/2024 S220GH / / [id number] -5 Clareon Iol Aspheric Hydrophobic Acrylic Iol Implanted:Qty: 1 on 04/02/2023 by Cody Gonzalez DO at OR [facility] Right: Eye JAZMIN 11/12/2025 CNA0T0 / [id number] / documented as of this encounter Visit Diagnoses Diagnosis Iron deficiency anemia, unspecified iron deficiency anemia type- Primary documented in this encounter Advance Directives Documents on File Type Date Recorded 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 No Care Teams Tow Truck Driver Relationship Specialty Start Date End Date Francisco Cisse MD [address] [place] [address] PCP - General Internal Medicine 09/04/21 documented as of this encounter
--- OUTSIDE RECORDS SUMMARY | 2024-02-20 15:23 | External Medical Summary | Summary of Care ---
Author Name Unknown Organization [facility] Address [address] [place] [address] Phone [phone] Care Team Providers Care Peer Educator Name Role Phone Francisco Cisse MD Primary Care Provider + Reason for Visit * Reason Onset Date Comments Test Results Lab 02/18/2024 Encounter Details Date Type Department Care Team (Late st Contact Info) Description 02/18/2024 Telephone Hematology/Oncology [facility] [address] Ayaka Tatum CRNP 400 [facility] [place]MENLA [place] [address] Test Results Lab Allergies No [...] mRNA, LNP-s, No Pre serve, 2-Dose Series (CurTran) 03/08/2021,02/15/2021 HepA Inact/HepB Recomb>=18yrs old 12/04/2019,04/2019,05/20/2019 11/19/2019 PPD 06/18/2017, 3,01/09/2012,06/2011 Pneumococcal Conjugate Vacc, 13 Valent (Prevnar) 05/01/2017 Pneumococcal Polysaccharide PPV23 (Pneumovax) 08/28/2022,10/25/2015,07/14/2012 Season Influenza, Quad, PF, Adjuvanted, 65+ Yrs, IM (FLUAD) 10/07/2020(Deferred: Patient Refused - pt says he already had his shot last month at [facility] Lyons and Mckinley Cobian [...] a transfusion tomorrow. His son would prefer hoe runner appt Patient to receive 1 unit PRBC for hgb 7.0. Called [facility] blood bank. No issues with having blood available pending changes to T&S. Called [facility] ([place]) and central scheduling ([place]). [...] in scheduling 1 unit PRBC transfusion at [facility]. With T&S please fax order for patient to have ferritin and iron screen drawn prior to transfusion. Orders placed. Repeat CBCd in one week. documented in this encounter Plan of Treatment Upcoming Encounters Date Type Department Care Team (Late st Contact Info) Description 02/24/2024 10:45 AM EDT Imaging Radiology [address] [address] 03/03/2024 8:40 AM EDT Laboratory Lab Mobile Phlebotomy [facility] [address] [place] [address] [facility] Mobile Home Draw [address] [place] [address] 03/13/2024 2:00 PM EDT Office Visit Dermatology [facility] 200 [facility] [place] [address] Francisco Watson MD 200 [facility] [place] [address] 03/17/2024 8:40 AM EDT Laboratory Lab Mobile Phlebotomy [facility] [address] [place] [address] [facility] Mobile Home Draw [address] [place] [address] 03/18/2024 11:00 AM EDT Office Visit Urology, [facility] [address] [place] [address] Frank Peraza MD [address] [address] 03/24/2024 2:30 PM EDT Office Visit Hematology/Oncology [facility] 200 [place] [address] Ayaka Tatum CRNP [address] [place] [address] 03/30/2024 12:00 PM EDT Office Visit Family Practice [facility] [address] [place] [address] Kristen Vences DO 132 [facility] [place] [address] 03/31/2024 8:40 AM EDT Laboratory Lab Mobile Phlebotomy [facility] [address] [place] [address] [facility] Mobile Home Draw [address] [place] [address] 04/07/2024 10:00 AM EDT Office Visit Gastroenterology, [facility] 132 [place] [address] Lamar Tatum CRNP 132 [facility] [place] [address] 04/14/2024 8:40 AM EDT Laboratory Lab Mobile Phlebotomy [facility] [address] [place] [address] [facility] Mobile Home Draw [address] [place] [address] 04/28/2024 8:40 AM EDT Laboratory Lab Mobile Phlebotomy [facility] [address] [place] [address] [facility] Mobile Home Draw [address] [place] [address] 05/12/2024 8:40 AM EDT Laboratory Lab Mobile Phlebotomy [facility] [address] [place] [address] [facility], [facility] Mobile Home Draw [address] [place] [address] 05/26/2024 8:40 AM EDT Laboratory Lab Mobile Phlebotomy [facility] [address] [place] [address] [facility], [facility] Draw [address] [place] [address] 06/09/2024 8:40 AM EDT Laboratory Lab Mobile Phlebotomy [facility] [address] [place] [address] [facility] Home Draw [address] [place] [address] 06/23/2024 8:40 AM EDT Laboratory Lab Mobile Phlebotomy [facility] [address] [place] [address] [facility], [facility] Mobile Home Draw [address] [place] [address] 07/07/2024 8:40 AM EDT Laboratory Lab Mobile Phlebotomy [facility] [address] [place] [address] [facility] Mobile Home Draw [address] [place] [address] 07/21/2024 8:40 AM EDT Laboratory Lab Mobile Phlebotomy [facility] [address] [place] [address] [facility] Mobile Home Draw [address] [place] [address] 08/04/2024 8:40 AM EDT Laboratory Lab Mobile Phlebotomy [facility] [address] [place] [address] [facility], [facility] Mobile Home Draw [address] [place] [address] 08/18/2024 8:40 AM EDT Laboratory Lab Mobile Phlebotomy [facility] [address] [place] [address] [facility] Mobile Home Draw [address] [place] [address] 08/20/2024 10:15 AM EDT Office Visit Ophthalmology, [address] [address] Cody Gonzalez DO [address] [place] [address] 09/01/2024 8:40 AM EDT Laboratory Lab Mobile Phlebotomy [facility] [address] [place] [address] [facility] Mobile Home Draw [address] [place] [address] 09/15/2024 8:40 AM EDT Laboratory Lab Mobile Phlebotomy [facility] [address] [place] [address] [facility] Mobile Home Draw [address] [place] [address] Scheduled Orders Name Type Priority Associated Diagnoses [...] Additional history exists CKD PHOS USE SMARTSET 53982 01/28/202401/03, 07/26/2022, 12/05/2021, Additional history exists Diabetic Foot Exam 03/06/2024 03/06/2023, 0 01/03/2022, 03/02/2021, Additional history exists HbA1c 05/28/2024 11/27/2023, 05/03, 01/28/2023, Additional history exists Albumin/Creatinine Ratio 07/12/2024 023, 10/01/2022, 09/11/2021, Additional history exists COLONOSCOPY-ANNUAL AGES 18-100 08/09/2024 08/09/2023, 11/07/2022, 11/07/2022, Additional history exists GFR 08/15/2024 02/13/2024, 01/03, 01/17/2024, Additional history exists CKD HGB USE SMARTSET 28063 02/17/202502/17, 02/18/2024, 02/13/2024, Additional history exists Lipid [...] this encounter Medical Devices Implanted Type Area Printer Slotter Feeder Device Identifier Shelf Expiration Date Model / Serial / Lot Clareon Iol Aspheric Hydrophobic Acrylic Iol Implanted:Qty: 1 on 04/23/2023 by Cody Gonzalez DO at OR [facility] Lens Left: Eye 11/12/2025 CNA0T0 / [id number] / Viatorr Tips Endoprosthesis 8-10 Mm X 8cm / 2cm Implanted:Qty: 1 on 10/07/2020 by Go Alvarado MD at [facility] Right: Abdomen 03/03/2023 [id number] / / [id number] Description:Viatorr TIPS End oprosthesis 8-10 mm x 8cm / 2cm, Manufactored by [employer] Syr Pf 2ml Embospheres 100-300 - [id number] Implanted:Qty: 1 on 04/18/2021 by Kevin Lim DO at OR [facility] Left: Abdomen [email or web address] [id number] 11/25/2023 S220GH / / [id number] Lipiodol Injection - [id number] Implanted:Qty: 1 on 03/28/2022 at [facility] [employer] 03/01/2023 [id number] 01-2 / / [id number] Syr Pf 2ml [facility] 100-300 - [id number] Implanted:Qty: 1 on 03/28/2022 at [facility] [email or web address] [id number] 08/31/2024 S220GH / / [id number] -5 Clareon Iol Aspheric Hydrophobic Acrylic Iol Implanted:Qty: 1 on 04/02/2023 by Cody Gonzalez DO at OR [facility] Right: Eye JAZMIN 11/12/2025 CNA0T0 / [id number] / documented as of this encounter Visit Diagnoses Diagnosis Iron deficiency anemia, unspecified iron deficiency anemia type- Primary documented in this encounter Advance Directives Documents on File Type Date Recorded Patient Bed Operator Expl anation Advance Directives and Living Will 12/11/2022 ADVANCE DIRECTIVE / LIVING WILL LIVING WILL Power of Bulwark Carpenter 12/11/2022 POWER OF A TTORNEY Latest Code [...] the patient have Health Care Power of Bulwark Carpenter? No Care Teams Peer Educator Relationship Specialty Start Date End Date Doberstein, Francisco F, MD 200 [facility], [place] [id number] PCP - General Internal Medicine 09/04/21 documented as of this encounter
--- OUTSIDE RECORDS SUMMARY | 2024-02-20 15:23 | External Medical Summary | Summary of Care ---
Author Name Unknown Organization [facility] Address [address] [facility] [address] Phone [phone] Care Team Providers Care Treating Engineer Helper Name Role Phone Francisco Cisse MD Primary Care Provider + Reason for Visit * Reason Onset Date Comments Hospital Follow-Up 02/19/2024 Encounter Details Date Type Department Care Team (Late st Contact Info) Description 02/19/2024 Telephone General Internal Medicine [facility] 200 [facility] [place] [address] Francisco Cisse MD 200 [place] [address] Hospital Follow-Up Allergies No known active allergiesdocumented [...] mRNA, LNP-s, No Pre serve, 2-Dose Series ([employer]) 03/08/2021,02/15/2021 HepA Inact/HepB Recomb>=18yrs old 12/04/2019,04/2019,05/20/2019 11/19/2019 PPD 06/18/2017, 3,01/09/2012,06/2011 Pneumococcal Conjugate Vacc, 13 Valent (Prevnar) 05/01/2017 Pneumococcal Polysaccharide PPV23 (Pneumovax) 08/28/2022,10/25/2015,07/14/2012 Season Influenza, Quad, PF, Adjuvanted, 65+ Yrs, IM (FLUAD) 10/07/2020(Deferred: Patient Refused - pt says he already had his shot last month at [facility] and Mckinley Cobian [...] encounter Miscellaneous Notes * Telephone Encounter - Nava Mcnamara LPN - 02/19/2024 3:44 PM EDT Per [facility] nephro consult No follow up needed * Telephone Encounter - Mukul Delgado RN - 02/19/2024 2:26 PM EDT Patient discharged from [facility] 02/11/24. Nephrology consulted, no specific recommendations. Please determine if patient will need to be seen by Nephrology for hospital follow up. Thank you documented in this encounter Plan of Treatment Upcoming Encounters Date Type Department Care Team (Late st Contact Info) Description 02/24/2024 10:45 AM EDT Imaging Radiology [address] [place] [address] 03/03/2024 8:40 AM EDT Laboratory Lab Mobile Phlebotomy [facility] [address] [place] [address] [facility] Mobile Home Draw [address] [place] [address] 03/13/2024 2:00 PM EDT Office Visit Dermatology [facility] 200 [facility] [place] [address] Francisco Watson MD 200 [facility] [place] [address] 03/17/2024 8:40 AM EDT Laboratory Lab Mobile Phlebotomy [facility] [address] [place] [address] [facility] Mobile Home Draw [address] [place] [address] 03/18/2024 11:00 AM EDT Office Visit Urology, [facility] 132 [place] [address] Frank Peraza MD [address] [place] [address] 03/24/2024 2:30 PM EDT Office Visit Hematology/Oncology [facility] 200 [facility] [place] [address] Ayaka Tatum CRNP [address] [place] [address] 03/30/2024 12:00 PM EDT Office Visit Family Practice [facility] 132 [facility] [place] [address] Kristen Vences DO 132 [facility] [place] [address] 03/31/2024 8:40 AM EDT Laboratory Lab Mobile Phlebotomy [facility] [address] [place] [address] [facility], [facility] Mobile Home Draw [address] [place] [address] 04/07/2024 10:00 AM EDT Office Visit Gastroenterology, [facility] [address] [place] [address] Lamar Tatum CRNP [address] [place] [address] 04/14/2024 8:40 AM EDT Laboratory Lab Mobile Phlebotomy [facility] [address] [place] [address] [facility], [facility] Mobile Home Draw [address] [place] [address] 04/28/2024 8:40 AM EDT Laboratory Lab Mobile Phlebotomy [facility] [address] [place] [address] [facility], [facility] Draw [address] [place] [address] 05/12/2024 8:40 AM EDT Laboratory Lab Mobile Phlebotomy [facility] [address] [place] [address] [facility], [facility] Draw [address] [place] [address] 05/26/2024 8:40 AM EDT Laboratory Lab Mobile Phlebotomy [facility] [address] [place] [address] [facility], [facility] Mobile Home Draw [address] [place] [address] 06/09/2024 8:40 AM EDT Laboratory Lab Mobile Phlebotomy [facility] [address] [place] [address] [facility], [facility] Mobile Home Draw [address] [place] [address] 06/23/2024 8:40 AM EDT Laboratory Lab Mobile Phlebotomy [facility] [address] [place] [address] Gmc, [facility] Mobile Home Draw [address] [place] [address] 07/07/2024 8:40 AM EDT Laboratory Lab Mobile Phlebotomy [facility] [address] [place] [address] [facility], [facility] Mobile Home Draw [address] [place] [address] 07/21/2024 8:40 AM EDT Laboratory Lab Mobile Phlebotomy [facility] [address] [place] [address] Gmc, [facility] Mobile Home Draw [address] [place] [address] 08/04/2024 8:40 AM EDT Laboratory Lab Mobile Phlebotomy [facility] [address] [place] [address] Gm, [facility] Mobile Home Draw [address] [place] [address] 08/18/2024 8:40 AM EDT Laboratory Lab Mobile Phlebotomy [facility] [address] [place] [address] [facility] Mobile Home Draw [address] [place] [address] 08/20/2024 10:15 AM EDT Office Visit Ophthalmology, [facility] 132 [place] [address] Cody Gonzalez DO 21 [place] [address] 09/01/2024 8:40 AM EDT Laboratory Lab Mobile Phlebotomy [facility] [address] [place] [address] [facility] Mobile Home Draw [address] [place] [address] 09/15/2024 8:40 AM EDT Laboratory Lab Mobile Phlebotomy [facility] [address] [place] [address] [facility] Mobile Home Draw [address] [place] [address] Scheduled Procedures Name Priority Associated Diagnoses Date/Ti [...] Additional history exists CKD PHOS USE SMARTSET 12228 01/28/202401/03, 07/26/2022, 12/05/2021, Additional history exists Diabetic Foot Exam 03/06/2024 03/06/2023, 0 01/03/2022, 03/02/2021, Additional history exists HbA1c 05/28/2024 11/27/2023, 05/03, 01/28/2023, Additional history exists Albumin/Creatinine Ratio 07/12/2024 023, 10/01/2022, 09/11/2021, Additional history exists COLONOSCOPY-ANNUAL AGES 18-100 08/09/2024 08/09/2023, 11/07/2022, 11/07/2022, Additional history exists GFR 08/15/2024 02/13/2024, 01/03, 01/17/2024, Additional history exists CKD HGB USE SMARTSET 57029 02/17/202502/17, 02/18/2024, 02/13/2024, Additional history exists Lipid [...] this encounter Medical Devices Implanted Type Area Reconcilement Clerk Device Identifier Shelf Expiration Date Model / Serial / Lot Clareon Iol Aspheric Hydrophobic Acrylic Iol Implanted:Qty: 1 on 04/23/2023 by Cody Gonzalez DO at OR [facility] Lens Left: Eye 11/12/2025 CNA0T0 / [id number] / Viatorr Tips Endoprosthesis 8-10 Mm X 8cm / 2cm Implanted:Qty: 1 on 10/07/2020 by Go Alvarado MD at [facility] Right: Abdomen 03/03/2023 [id number] / / [id number] Description:Viatorr TIPS End oprosthesis 8-10 mm x 8cm / 2cm, Manufactored by [employer] Syr Pf 2ml Embospheres 100-300 - [id number] Implanted:Qty: 1 on 04/18/2021 by Kevin Lim DO at OR [facility] Left: Abdomen [employer] [id number] 11/25/2023 S220GH / / [id number] -5 Lipiodol Injection - [id number] Implanted:Qty: 1 on 03/28/2022 at [facility] [employer] 03/01/2023 [id number] 01-2 / / [id number] Syr Pf 2ml Embospheres 100-300 - [id number] Implanted:Qty: 1 on 03/28/2022 at [facility] [employer] [id number] 08/31/2024 S220GH / / [id number] -5 Clareon Iol Aspheric Hydrophobic Acrylic Iol Implanted:Qty: 1 on 04/02/2023 by Cody Gonzalez DO at [facility] Right: Eye JAZMIN 11/12/2025 CNA0T0 / [id number] / documented as of this encounter Advance Directives Documents on File Type Date Recorded Patient Admitting Counselor Expl anation Advance Directives and Living Will 12/11/2022 ADVANCE DIRECTIVE / LIVING WILL LIVING WILL Power of Automatic Silk Screen Printer 12/11/2022 POWER OF A TTORNEY Latest Code [...] patient have Health Care Power of Automatic Silk Screen Printer? No Care Teams Treating Engineer Helper Relationship Specialty Start Date End Date Francisco Cisse MD [address] [place] [address] PCP - General Internal Medicine 09/04/21 documented as of this encounter
--- OUTSIDE RECORDS SUMMARY | 2024-02-20 15:23 | External Medical Summary | Summary of Care ---
Author Name Unknown Organization [facility] Address [address] [place] [address] Phone [phone] Care Team Providers Care Director Medical Surgical Name Role Phone Francisco Cisse MD Primary Care Provider + Reason for Visit * Reason Onset Date Comments Test Results Lab 02/18/2024 Encounter Details Date Type Department Care Team (Late st Contact Info) Description 02/18/2024 Telephone Hematology/Oncology [facility] [address] [facility] [phone] Ayaka Tatum CRNP 400 [facility] [place] [address] Test Results Lab Allergies No [...] mRNA, LNP-s, No Pre serve, 2-Dose Series ([employer] 03/08/2021,02/15/2021 HepA Inact/HepB Recomb>=18yrs old 12/04/2019,04/2019,05/20/2019 11/19/2019 [...] a transfusion tomorrow. His son would prefer sales representative appt Patient to receive 1 unit PRBC for hgb 7.0. Called [facility] blood bank. No issues with having blood available pending changes to T&S. Called [facility] ([place]) and central scheduling ([place]). [...] in scheduling 1 unit PRBC transfusion [address] [facility]. With T&S please fax order for patient to have ferritin and iron screen drawn prior to transfusion. Orders placed. Repeat CBCd in one week. documented in this encounter Plan of Treatment Upcoming Encounters Date Type Department Care Team (Late st Contact Info) Description 02/24/2024 10:45 AM EDT Imaging Radiology [address] [address] 03/03/2024 8:40 AM EDT Laboratory Lab Mobile Phlebotomy [facility] [address] [place] [address] [facility] Mobile Home Draw [address] [place] [address] 03/13/2024 2:00 PM EDT Office Visit Dermatology [facility] [address] [place] [address] Francisco Watson MD 200 [place] [address] 03/17/2024 8:40 AM EDT Laboratory Lab Mobile Phlebotomy [facility] [address] [place] [address] [facility] Mobile Home Draw [address] [place] [address] 03/18/2024 11:00 AM EDT Office Visit Urology, [facility] [address] [place] [address] Frank Peraza MD [address] [place] [address] 03/24/2024 2:30 PM EDT Office Visit Hematology/Oncology [facility] [address] [facility] [place] [phone] Ayaka Tatum CRNP [address] [place] [address] 03/30/2024 12:00 PM EDT Office Visit Family Practice [facility] [address] [place] [address] Kristen Vences DO [address] [place] [address] 03/31/2024 8:40 AM EDT Laboratory Lab Mobile Phlebotomy [facility] [address] [place] [address] [facility], [facility] Mobile Home Draw [address] [place] [address] 04/07/2024 10:00 AM EDT Office Visit Gastroenterology, [facility] [address] [place] [address] Lamar Tatum CRNP [address] [place] [address] 04/14/2024 8:40 AM EDT Laboratory Lab Mobile Phlebotomy [facility] [address] [place] [address] [facility] Mobile Home Draw [address] [place] [address] 04/28/2024 8:40 AM EDT Laboratory Lab Mobile Phlebotomy [facility] [address] [place] [address] [facility] Draw [address] [place], [place] [address] 05/12/2024 8:40 AM EDT Laboratory Lab Mobile Phlebotomy [facility] [address] [place] [address] [facility] Mobile Home Draw [address] [place] [address] 05/26/2024 8:40 AM EDT Laboratory Lab Mobile Phlebotomy [facility] [address] [place] [address] [facility] Draw [address] [place] [address] 06/09/2024 8:40 AM EDT Laboratory Lab Mobile Phlebotomy [facility] [address] [place] [address] [facility] Draw [address] [place] [address] 06/23/2024 8:40 AM EDT Laboratory Lab Mobile Phlebotomy [facility] [address] [place] [address] [facility] Draw [address] [place] [address] 07/07/2024 8:40 AM EDT Laboratory Lab Mobile Phlebotomy [facility] [address] [place] [address] [facility] Draw [address] [place] [address] 07/21/2024 8:40 AM EDT Laboratory Lab Mobile Phlebotomy [facility] [address] [place] [address] [facility] Draw [address] [place] [address] 08/04/2024 8:40 AM EDT Laboratory Lab Mobile Phlebotomy [facility] [address] [place] [address] [facility] Draw [address] [place] [address] 08/18/2024 8:40 AM EDT Laboratory Lab Mobile Phlebotomy [facility] [address] [place] [address] [facility], [facility] Mobile Home Draw [address] [place] [address] 08/20/2024 10:15 AM EDT Office Visit Ophthalmology, [facility] [address] [place] [address] Cody Gonzalez DO [address] [place] [address] 09/01/2024 8:40 AM EDT Laboratory Lab Mobile Phlebotomy [facility] [address] [place] [address] [facility] Mobile Home Draw [address] [place] [address] 09/15/2024 8:40 AM EDT Laboratory Lab Mobile Phlebotomy [facility] [address] [place] [address] [facility], [facility] Mobile Home Draw [address] [place] [address] Scheduled Orders Name Type Priority Associated Diagnoses [...] Additional history exists CKD PHOS USE SMARTSET 54351 01/28/202401/03, 07/26/2022, 12/05/2021, Additional history exists Diabetic Foot Exam 03/06/2024 03/06/2023, 0 01/03/2022, 03/02/2021, Additional history exists HbA1c 05/28/2024 11/27/2023, 05/03, 01/28/2023, Additional history exists Albumin/Creatinine Ratio 07/12/2024 023, 10/01/2022, 09/11/2021, Additional history exists COLONOSCOPY-ANNUAL AGES 18-100 08/09/2024 08/09/2023, 11/07/2022, 11/07/2022, Additional history exists GFR 08/15/2024 02/13/2024, 01/03, 01/17/2024, Additional history exists CKD HGB USE SMARTSET 65297 02/17/202502/17, 02/18/2024, 02/13/2024, Additional history exists Lipid [...] this encounter Medical Devices Implanted Type Area Septic Tank Cleaner Device Identifier Shelf Expiration Date Model / Serial / Lot Clareon Iol Aspheric Hydrophobic Acrylic Iol Implanted:Qty: 1 on 04/23/2023 by Cody Gonzalez DO at OR [facility] Lens Left: Eye 11/12/2025 CNA0T0 / [id number] / Viatorr Tips Endoprosthesis 8-10 Mm X 8cm / 2cm Implanted:Qty: 1 on 10/07/2020 by Go Alvarado MD at [facility] Right: Abdomen 03/03/2023 [id number] / / [id number] Description:Viatorr TIPS End oprosthesis 8-10 mm x 8cm / 2cm, Manufactored by [employer] Syr Pf 2ml Embospheres 100-300 - [id number] Implanted:Qty: 1 on 04/18/2021 by Kevin Lim DO at OR [facility] Left: Abdomen [employer] [id number] 11/25/2023 S220GH / / [id number] Lipiodol Injection - [id number] Implanted:Qty: 1 on 03/28/2022 at [facility] [employer] 03/01/2023 18065-89 01-2 / / [id number] Syr Pf 2ml Embospheres 100-300 - [id number] Implanted:Qty: 1 on 03/28/2022 at [facility] [employer] [id number] 08/31/2024 S220GH / / [id number] -[id number] Clareon Iol Aspheric Hydrophobic Acrylic Iol Implanted:Qty: 1 on 04/02/2023 by Cody Gonzalez DO at OR [facility] Right: Eye JAZMIN 11/12/2025 CNA0T0 / [id number] / documented as of this encounter Visit Diagnoses Diagnosis Iron deficiency anemia, unspecified iron deficiency anemia type- Primary documented in this encounter Advance Directives Documents on File Type Date Recorded Patient Genetic Counselor Expl anation Advance Directives and Living Will 12/11/2022 ADVANCE DIRECTIVE / LIVING WILL LIVING WILL Power of Materials Handling Equipment Operator 12/11/2022 POWER OF A TTORNEY Latest [...] the patient have Health Care Power of Materials Handling Equipment Operator? No Care Teams Director Medical Surgical Relationship Specialty Start Date End Date Francisco Cisse MD [address] [place] [address] PCP - General Internal Medicine 09/04/21 documented as of this encounter
--- OUTSIDE RECORDS SUMMARY | 2024-02-20 15:23 | External Medical Summary | Summary of Care ---
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 Role Phone Francisco Cisse MD Primary Care Provider + Reason for Visit * Reason Onset Date Comments Test Results Lab 02/18/2024 Encounter Details Date Type Department Care Team (Late st Contact Info) Description 02/18/2024 Telephone Hematology/Oncology [facility] 200 [facility] [phone] Ayaka Tatum CRNP 400 [facility] [place] [address] Test Results Lab Allergies No [...] mRNA, LNP-s, No Pre serve, 2-Dose Series ([employer]) 03/08/2021,02/15/2021 HepA Inact/HepB Recomb>=18yrs old 12/04/2019,04/2019,05/20/2019 11/19/2019 PPD 06/18/2017, 3,01/09/2012,06/2011 Pneumococcal Conjugate Vacc, 13 Valent (Prevnar) 05/01/2017 Pneumococcal Polysaccharide PPV23 (Pneumovax) 08/28/2022,10/25/2015,07/14/2012 Season Influenza, Quad, PF, Adjuvanted, 65+ Yrs, IM (FLUAD) 10/07/2020(Deferred: Patient Refused - pt says he already had his shot last [facility] at [facility] [employer] [place] [employer] [place] [...] encounter Miscellaneous Notes * Telephone Encounter - Frank Peraza MD [...] a transfusion tomorrow. 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 Called [facility] blood bank. No issues with having blood available pending changes to T&S. Called [facility] ([place]) and central scheduling ([place]). Patient [...] in scheduling 1 unit PRBC transfusion at [facility]. With T&S please fax order for patient to have ferritin and iron screen drawn prior to transfusion. Orders placed. Repeat CBCd in one week. documented in this encounter Plan of Treatment Upcoming Encounters Date Type Department Care Team (Late st Contact Info) Description 02/24/2024 10:45 AM EDT Imaging Radiology [address] [id number] 03/03/2024 8:40 AM EDT Laboratory Lab Mobile Phlebotomy [facility] [address] [place] [address] [facility] [place], [facility] Mobile Home Draw [address] [place] [address] 03/13/2024 2:00 PM EDT Office Visit Dermatology [facility] [address] [place] [address] Francisco Watson MD [address] [place] [address] 03/17/2024 8:40 AM EDT Laboratory Lab Mobile Phlebotomy [facility] [address] [place] [address] Gm, [facility] Mobile Home Draw [address] [place] [address] 03/18/2024 11:00 AM EDT Office Visit Urology, [facility] [place] [address] Frank Peraza MD [address] [address] 03/24/2024 2:30 PM EDT Office Visit Hematology/Oncology [facility] [address] [place] [phone] Ayaka Tatum CRNP [address] [place] [address] 03/30/2024 12:00 PM EDT Office Visit Family Practice [facility] [address] [place] [address] Kristen Vences DO [address] [place] [address] 03/31/2024 8:40 AM EDT Laboratory Lab Mobile Phlebotomy [facility] [address] [place] [address] [facility], [facility] Mobile Home Draw [address] [place] [address] 04/07/2024 10:00 AM EDT Office Visit Gastroenterology, [facility] [address] [place] [address] Lamar Tatum CRNP [address] [place] [address] 04/14/2024 8:40 AM EDT Laboratory Lab Mobile Phlebotomy [facility] [address] [place] [address] [facility], [facility] Mobile Home Draw [address] [place] [address] 04/28/2024 8:40 AM EDT Laboratory Lab Mobile Phlebotomy [facility] [address] [place] [address] [facility], [facility] Mobile Home Draw [address] [place] [address] 05/12/2024 8:40 AM EDT Laboratory Lab Mobile Phlebotomy [facility] [address] [place] [address] [facility], [facility] Mobile Home Draw [address] [place] [address] 05/26/2024 8:40 AM EDT Laboratory Lab Mobile Phlebotomy [facility] [address] [place] [address] [facility], [facility] Mobile Home Draw [address] [place] [address] 06/09/2024 8:40 AM EDT Laboratory Lab Mobile Phlebotomy C [address] [place] [address] [facility], [facility] Mobile Home Draw [address] [place] [address] 06/23/2024 8:40 AM EDT Laboratory Lab Mobile Phlebotomy [facility] [address] [place] [address] [facility], [facility] Mobile Home Draw [address] [place] [address] 07/07/2024 8:40 AM EDT Laboratory Lab Mobile Phlebotomy [facility] [address] [place] [address] [facility], [facility] Mobile Home Draw [address] [place] [address] 07/21/2024 8:40 AM EDT Laboratory Lab Mobile Phlebotomy [facility] [address] [place] [address] [facility], [facility] Mobile Home Draw [address] [place] [address] 08/04/2024 8:40 AM EDT Laboratory Lab Mobile Phlebotomy [facility] [address] [place] [address] [facility], [facility] Mobile Home Draw [address] [place] [address] 08/18/2024 8:40 AM EDT Laboratory Lab Mobile Phlebotomy [facility] [address] [place] [address] [facility], [facility] Mobile Home Draw [address] [place] [address] 08/20/2024 10:15 AM EDT Office Visit Ophthalmology, [facility] [address] [place] [address] Cody Gonzalez DO [address] [place] [address] [place] [address] 09/01/2024 8:40 AM EDT Laboratory Lab Mobile Phlebotomy [facility] [address] [place] [address] [facility], [facility] Mobile Home Draw [address] [place] [address] 09/15/2024 8:40 AM EDT Laboratory Lab Mobile Phlebotomy [facility] [address] [place] [address] [facility], [facility] Mobile Home Draw [address] [place] [address] Scheduled Orders Name Type Priority Associated Diagnoses [...] Scheduled Procedures Name Priority Associated Diagnoses Date/Ti pr COLONOSCOPY FLEXIBLE PROXIMAL DIAGNOSTIC Recall History of colonic polyps Portal hypertensive gastropathy (HCC) ESOPHAGOGASTRODUODENOSCOPY ( EGD), FLEXIBLE, TRANSORAL, DIAGNOSTIC Recall History of colonic polyps Portal hypertensive gastropathy (HCC) Health Maintenance Due Date Last Done Comments Depression Screening 05/03/2022 05/03/2021 Zoster Vaccines (2 of 2) 12/13/2023 10/18/2023 Diabetic Eye Exam 01/17/2024 01/17/2023, , 01/17/2023, Additional history exists CKD PHOS USE SMARTSET 18250 01/28/202401/03, 07/26/2022, 12/05/2021, Additional history exists Diabetic Foot Exam 03/06/2024 03/06/2023, 0 01/03/2022, 03/02/2021, Additional history exists HbA1c 05/28/2024 11/27/2023, 05/03, 01/28/2023, Additional history exists Albumin/Creatinine Ratio 07/12/2024 023, 10/01/2022, 09/11/2021, Additional history exists COLONOSCOPY-ANNUAL AGES 18-100 08/09/2024 08/09/2023, 11/07/2022, 11/07/2022, Additional history exists GFR 08/15/2024 02/13/2024, 01/03, 01/17/2024, Additional history exists CKD HGB USE SMARTSET 29536 02/17/202502/17, 02/18/2024, 02/13/2024, Additional history exists Lipid [...] this encounter Medical Devices Implanted Type Area Studio Sales Associate Device Identifier Shelf Expiration Date Model / Serial / Lot Clareon Iol Aspheric Hydrophobic Acrylic Iol Implanted:Qty: 1 on 04/23/2023 by Cody Gonzalez DO at OR [facility] Lens Left: Eye 11/12/2025 CNA0T0 / [id number] / Viatorr Tips Endoprosthesis 8-10 Mm X 8cm / 2cm Implanted:Qty: 1 on 10/07/2020 by Go Alvarado MD at [facility] Right: Abdomen 03/03/2023 [id number] / / [id number] Description:Viatorr TIPS End oprosthesis 8-10 mm x 8cm / 2cm, Manufactored by [employer] Syr Pf 2ml Embospheres 100-300 - [id number] Implanted:Qty: 1 on 04/18/2021 by Kevin Lim DO at OR [facility] Left: Abdomen [employer] [id number] 11/25/2023 S220GH / / [id number] Lipiodol Injection - [id number] Implanted:Qty: 1 on 03/28/2022 at [facility] [employer] 03/01/2023 27970-09 01- [id number] Syr Pf 2ml Embospheres 100-300 - [id number] Implanted:Qty: 1 on 03/28/2022 at [facility] [employer] [id number] 08/31/2024 S220GH / / [id number] -5 Clareon Iol Aspheric Hydrophobic Acrylic Iol Implanted:Qty: 1 on 04/02/2023 by Cody Gonzalez DO at OR [facility] Right: Eye JAZMIN 11/12/2025 CNA0T0 / [id number] / documented as of this encounter Visit Diagnoses Diagnosis Iron deficiency anemia, unspecified iron deficiency anemia type- Primary documented in this encounter Advance Directives Documents on File Type Date Recorded 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 No Care Teams Steel Construction Worker Relationship Specialty Start Date End Date Francisco Cisse MD [address] [place] [address] PCP - General Internal Medicine 09/04/21 documented as of this encounter
--- OUTSIDE RECORDS SUMMARY | 2024-02-20 15:24 | External Medical Summary | Summary of Care ---
Author Name Unknown Organization [facility] Address [address] [place] [address] Phone [phone] Care Team Providers Care Photographs Curator Name Role Phone Francisco Cisse MD Primary Care Provider + Reason for Referral * Evaluate & Treat - Unlimited Visits (Within 30 days (routine)) - Authorized Specialty Diagnoses / Procedures Referred By Chacho fleming Referred To Contact Wound Care Diagnoses Hematuria, gross Abnormal cystoscopy Frank Peraza MD [address] [place] [address] [place] [address] Referral ID Status Reason Start Date Expiration Date Visits Requested Visits Authorized [id number] Authorized Specialty Services Required 02/14/[phone] Question Answer Referral Priority Within 30 days (routine) Where should this appointment be scheduled? 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 Reason for Visit * Reason Comments Post-Op Encounter Details Date Type Department Care Team (Late st Contact Info) Description 02/14/2024 2:45 PM EDT Office Visit Urology Lynnette Fitzpatrick [address] [place] [address] Frank Peraza MD [address] [place] [address] [place] [address] Hematuria, gross*; Abnormal cystoscopy; Elevated prostate specific antigen (PSA) Allergies No known active allergiesdocumented as of this encounter (statuses as of 02/14/2024) Medications Medication Sig Dispensed Refills Start Date [...] as of this encounter (statuses as of 02/14/2024) Active Problems Problem Noted Date Diagnosed Date [...] as of this encounter (statuses as of 02/14/2024) Resolved Problems Problem Noted Date Diagnosed Date [...] as of this encounter (statuses as of 02/14/2024) Immunizations Name Administration Dates Next Due COVID-19 mRNA, LNP-s, No Pre serve, 2-Dose Series (Scoupon) 03/08/2021,02/15/2021 HepA Inact/HepB Recomb>=18yrs old 12/04/2019,04/2019,05/20/2019 11/19/2019 [...] Progress Notes * Frank Peraza MD - 02/14/2024 2:59 PM EDT [id number] PCP: FRANCISCO CISSE [address] [place] [address] [phone] Luis Hale is a 73 year old comorbid male, who presents for follow-up after bipolar TURP and bladder biopsy. Biopsy demonstrates significant inflammation and mild atypia, no evidence of malignancy.Prostate chips are positive for chronic inflammation, no cancer. Patient's difficulties with hepatocellular carcinoma, recurrent hematuria and anemia are also noted. ER visits in the interim secondary to catheterization are appreciated. Patient is here today with his son. Difficulties with cathetermalfunction are noted. Son has been irrigating at home. Urine is currently bloody. Prostate Cancer: Diagnosed Nov 2020. [place] 3+3 CAP in every core. High risk [...] from 07/19/2021 when it measured 1.3 cm. Current Outpatient Medications Medication Sig Dispense Refill Finasteride 5 MG Oral Tablet (Proscar) Take 1 Tablet by mouth in the morning. 90 Tablet 1 Tylenol 325 MG Oral Capsule (Acetaminophen) Take [...] Tablet in the evening. 60 Tablet 5 Zoster Vac Recomb Adjuvanted 50 MCG/0.5ML Intramuscular Suspension Reconstituted (Shingrix) Inject 0.5 mL into a large muscle now and repeat dose in 60 to 180 days (Patient not taking: Reported on 01/30/2024) 1 Each 1 Allopurinol 100 MG Oral [...] mouth in the morning. 90 Capsule 1 Lantus SoloStar 100 UNIT/ML Subcutaneous Solution Pen-injector once. amLODIPine Besylate 5 MG Oral Tablet (Norvasc) Take 0.5 Tablets by mouth in the morning. (Patient not taking: Reported on 01/30/2024) Cephalexin 500 MG Oral Capsule (Keflex) Take 1 Capsule by mouth in the morning and 1 Capsule at noon and 1 Capsule before bedtime. 6 Capsule 0 traMADol HCl 50 MG Oral Tablet (Ultram) Take 1 Tablet by mouth every 6 hours as needed for Pain, Severe. 10 Tablet 0 Current Facility-Administered Medications Medication Dose [...] Heart disease Brother Other (Other) Brother Agent [place] exposure Cancer Grandmother (Paternal) unkown, in 80s Neurological Disorder Daughter epilepsy No Known Problems Daughter Cervical Cancer Daughter Uterine cancer Daughter Thyroid cancer Daughter Diabetes Other Hypertension Other Heart Disorder Other Stroke Other Past Surgical History: Procedure Laterality Date CATARACT SURGERY,COMPLEX Right 04/02/2023 EXTRACAPSULAR CATARACT REMOVAL COMPLEX WITH IOL performed by Cody Gonzalez DO at OR [facility] CATARACT SURGERY,COMPLEX Left 04/23/2023 LEFT EXTRACAPSULAR CATARACT REMOVAL COMPLEX WITH IOL performed by Cody Gonzalez DO at OR [facility] COLONOSCOPY 08/27/2005 lock haven/hemorrhoids non internal COLONOSCOPY, DIAGNOSTIC (RECTUM) 04/16/2013 COLONOSCOPY FLEXIBLE PROXIMAL DIAGNOSTIC performed by Salvador Lopez MD at ENDOSCOPY [facility], adenomatous polyps repeat colonoscopy in 3 years COLONOSCOPY, DIAGNOSTIC (RECTUM) 05/03/2016 adenomatous polyps, diverticulosis, repeat 5 yrs/COLONOSCOPY FLEXIBLE PROXIMAL DIAGNOSTIC performedby Salvador Lopez MD at ENDOSCOPY [facility] COLONOSCOPY, DIAGNOSTIC (RECTUM) 07/19/2020 adenomatous & hyperplastic polyps, diverticulosis, repeat 3 yrs / [facility] COLONOSCOPY, DIAGNOSTIC (RECTUM) 11/30/2021 mild XRT proctitis, diverticulosis / COLONOSCOPY FLEXIBLE PROXIMAL DIAGNOSTIC performed by Barbara March DO at ENDOSCOPY [facility] COLONOSCOPY, DIAGNOSTIC (RECTUM) 02/01/2022 Mild XRT proctitis / COLONOSCOPY FLEXIBLE PROXIMAL DIAGNOSTIC performed by Barbara March DO at ENDOSCOPY [facility] COLONOSCOPY, DIAGNOSTIC (RECTUM) N/A 11/07/2022 poor prep/diverticulosis sigmoid colon/rectal angioectasias consistent with radiation proctopathy/Colonoscopy/[place] COLONOSCOPY, DIAGNOSTIC (RECTUM) N/A 08/09/2023 poor prep/moderate diverticulosis/hemorrhoids/biopsies show adenomatous and hyperplastic polyps/recall 1 years/Colonoscopy/[place] CT ABDOMEN W IV AND W ORAL CONTRAST 01/10/2010 CYSTOSCOPY/TREAT MED BLADDER TUMOR N/A 01/30/2024 CYSTOURETHROSCOPY WITH FULGURATION MEDIUM BLADDER TUMOR performed by Frank Peraza MD at [facility] EGD, FLEXIBLE, DIAGNOSTIC 07/22/2014 GE varices oozing blood, gastric polyp/ESOPHAGOGASTRODUODENOSCOPY (EGD), FLEXIBLE, TRANSORAL, DIAGNOSTIC performed by Juaquin Arrington MD at ENDOSCOPY [facility] EGD, FLEXIBLE, DIAGNOSTIC 07/23/2014 ESOPHAGOGASTRODUODENOSCOPY (EGD), FLEXIBLE, TRANSORAL, DIAGNOSTIC performed by Sophie Merino MD at [facility] EGD, FLEXIBLE, DIAGNOSTIC 06/02/2019 eso & gastric varices, gastric polyps/ESOPHAGOGASTRODUODENOSCOPY (EGD), FLEXIBLE, TRANSORAL, DIAGNOSTIC performed by Salvador Lopez MD at ENDOSCOPY [facility] EGD, FLEXIBLE, DIAGNOSTIC 03/25/2020 portal hypertensive gastropathy, esophageal varices / INPT [facility] EGD, FLEXIBLE, DIAGNOSTIC 07/19/2020 eso varices, portal hypertensive gastropathy, repeat 3 mo / [facility] EGD, FLEXIBLE, DIAGNOSTIC 10/25/2020 Portal hypertensive gastropathy, eso varices / [facility] EGD, FLEXIBLE, DIAGNOSTIC 08/202222 Grade I esophageal varices / [facility] EGD, FLEXIBLE, DIAGNOSTIC N/A 09/11/2022 grade II esophageal varices/gastric antral vascular ectasia, treated with APC/repeat 3 months/EGD/[place] EGD, FLEXIBLE, DIAGNOSTIC N/A 11/07/2022 grade III esophageal varices, banded/gastric antral vascular ectasia/repeat 2 months/EGD/[place] EGD, FLEXIBLE, DIAGNOSTIC N/A 02/01/2023 [facility]< egd. / single G2 varix, banded and varices eradicated / no specimens collected / egd in 1 to 2 months / EGD, FLEXIBLE, DIAGNOSTIC N/A 08/09/2023 portal hypertensive gastropathy/repeat 1 year/EGD/[place] EGD, FLEXIBLE, DIAGNOSTIC 05/22/2023 GAVE, repeat 4-6 wks / [facility] IR CANCER THERASPHERE EMBOLIZATION 03/28/2022 IR EMBOLIZATION Left 04/18/2021 IMAGING SUPERVISION & INTERPRETATION TRANSCATHETER THERAPY, EMBOLIZATION performed by Kevin Lim DO at OR [facility] IR EMBOLIZATION ARTERIAL NON HEMMORHAGE Left 02/21/2022 EMBOLIZATION ARTERIAL; SUPERVISION & INTERPRETATION performed by Kevin Lim DO at OR [facility] IR EMBOLIZATION ARTERIAL NON HEMMORHAGE Left 06/05/2022 EMBOLIZATION ARTERIAL; SUPERVISION & INTERPRETATION performed by Kevin Lim DO at OR [facility] IR VENOUS TIPS 10/07/2020 REMOVAL OF TONSILS, UNDER AGE 12 age 6-7 Tonsils Removal,<12 Y/O SIGMOIDOSCOPY, DIAGNOSTIC 04/12/2022 radiation proctitis, diverticulosis / [facility] TIPS, REVISION N/A 01/24/2021 REVISION TRANSVENOUS INTRAHEPATIC PORTOSYSTEMIC SHUNT performed by Kevin Lim DO at OR [facility] TIPS, REVISION Right 10/19/2022 REVISION TRANSVENOUS INTRAHEPATIC PORTOSYSTEMIC SHUNT performed by Howie Valdovinos MD at OR [facility] TIPS, REVISION Right 02/20/2023 REVISION TRANSVENOUS INTRAHEPATIC PORTOSYSTEMIC SHUNT performed by Kevin Lim DO at OR [facility] Past Medical History: Diagnosis Date Acquired thrombocytopenia (HCC) 09/05/2017 Allergic rhinitis Anemia 12/2023 required transfusion Anxiety and depression Aortic valve sclerosis 02/01/2023 Benign neoplasm of colon 04/16/2013 COLONOSCOPY FLEXIBLE PROXIMAL DIAGNOSTIC performed by Salvador Lopez MD at ENDOSCOPY [facility], adenomatous polyps repeat colonoscopy in 3 [...] Abnormal cystoscopy R39.9 Hematuria, gross R31.0 Constitutional: (-) fever and (-) chills Male : See HPI Musculoskeletal: (+) muscle weakness Neurology: (+) loss of balance Physical Exam Constitutional: Appearance: He is ill-appearing. Comments: In wheelchair HENT: Head: Normocephalic. Right Ear: External ear normal. Left Ear: External ear normal. Pulmonary: Effort: Pulmonary effort is normal. No respiratory distress. Abdominal: General: There is no distension. Skin: Coloration: Skin is pale. Neurological: Motor: Weakness present. Gait: Gait abnormal. Psychiatric: Thought Content: Thought content normal. Procedure: Bladder irrigated with sterile water, approximately 500 mL with rapid clearing and clearance of a small volume of old clots. Catheter draining clear urine after this without any evidence of ongoing hematuria. Impression/Plan: 73-year-old comorbid male with extended hematuria after TURP and bladder biopsy. We are pleased with the lack of malignancy on the patient's bladder biopsy. 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 I suspect that the patient is indeed healing simplyon a significantly slower pace. Will hold on consideration of a trial of void on a Saturday afternoon, plan on this early next week. Patient notes he is traveling to [place] on Saturday, will plan on Saturday in [facility]. I will see the patient a couple of weeks after that to check on his progress. Will also enlist the help of Wound Care for hyperbaric oxygen therapy considering his ongoing di fficulties with bleeding even prior to operation. Worrisome signs and symptoms and expected convalescence are reviewed. Patient vocalizes good understanding of the treatment plan. Frank Peraza MD 2:59 PM 02/14/2024 documented in this encounter Nursing Notes * Ira Browne LPN - 02/14/2024 2:49 PM EDT Chief Complaint Patient presents with Post-Op Pt presents for post op s/p cysto with medium bladder tumor removal on 01/30/24. Pt states he has been seen in the Ed several times since surgery, admitted for 10 days and 3 times in the ED. Was seen yesterday in [facility] ED. Pt c/o pain at the end of penis since surgery. Pt still having a lot of blood in urine bag. Kan in place. Taking finasteride documented in this encounter Plan of Treatment Upcoming Encounters Date Type Department Care Team (Late st Contact Info) Description 02/17/2024 8:00 AM EDT Office Visit Radiology, [place] [address] [place] [address] Chavez Sapp MD [facility] [place] [address] 02/17/2024 9:00 AM EDT Office Visit Transplant Clinic, [place] [address] [place] [address] Avinash Vega MD [facility] [place] [address] Demian Mancini MD [address] [place] [address] Millie Gonzalez LSW [facility] [place] [address] Nurse [facility] [address] [place] [address] 02/18/2024 8:40 AM EDT Laboratory Lab Mobile Phlebotomy [facility] [address] [place] [address] [facility] Mobile Home Draw [facility] [place] [address] 02/18/2024 10:00 AM EDT Nurse Only Urology, [facility] [address] [facility] [place] [address] Nitin, Nurse Urology [facility] [address] [facility] [place] [address] 02/24/2024 10:45 AM EDT Imaging Radiology [facility] [place] [address] [facility] [place] [address] 03/03/2024 8:40 AM EDT Laboratory Lab Mobile Phlebotomy [facility] [address] [place] [address] [facility] Mobile Home Draw [address] [place] [address] 03/13/2024 2:00 PM EDT Office Visit Dermatology [facility] [address] [place] [address] Francisco Watson MD [address] [place] [place] [address] 03/17/2024 8:40 AM EDT Laboratory Lab Mobile Phlebotomy [facility] [address] [place] [address] [facility] Mobile Home Draw [address] [place] [address] 03/24/2024 2:30 PM EDT Office Visit Hematology/Oncology [facility] [address] [place] [address] Ayaka Tatum CRNP [address] [place] [address] 03/30/2024 12:00 PM EDT Office Visit Family Practice [facility] [address] [facility] [place] [address] Kristen Venecs DO [facility] [address] 03/31/2024 8:40 AM EDT Laboratory Lab Mobile Phlebotomy [facility] [address] [place] [address] [facility] Mobile Home Draw [address] [place] [address] 04/07/2024 10:00 AM EDT Office Visit Gastroenterology, [facility] [address] [facility] [place] [address] Lamar Tatum CRNP [address] [place] [address] 04/14/2024 8:40 AM EDT Laboratory Lab Mobile Phlebotomy [facility] [address] [place] [address] [facility] Mobile Home Draw [address] [place] [address] 04/28/2024 8:40 AM EDT Laboratory Lab Mobile Phlebotomy [facility] [address] [place] [address] [facility] Mobile Home Draw [address] [place] [address] 05/12/2024 8:40 AM EDT Laboratory Lab Mobile Phlebotomy [facility] [address] [place] [address] [facility] Mobile Home Draw [address] [place] [address] 05/26/2024 8:40 AM EDT Laboratory Lab Mobile Phlebotomy [facility] [address] [place] [address] [facility] Mobile Home Draw [address] [place] [address] 06/09/2024 8:40 AM EDT Laboratory Lab Mobile Phlebotomy [facility] [address] [place] [address] [facility] Mobile Home Draw [address] [place] [address] 06/23/2024 8:40 AM EDT Laboratory Lab Mobile Phlebotomy [facility] [address] [place] [address] [facility], [facility] Mobile Home Draw [address] [place] [address] 07/07/2024 8:40 AM EDT Laboratory Lab Mobile Phlebotomy [facility] [address] [place] [address] [facility], [facility] Mobile Home Draw [address] [place] [address] 07/21/2024 8:40 AM EDT Laboratory Lab Mobile Phlebotomy [facility] [address] [place] [address] [facility] Mobile Home Draw [address] [place] [address] 08/04/2024 8:40 AM EDT Laboratory Lab Mobile Phlebotomy [facility] [address] [place] [address] [facility], [facility] Mobile Home Draw [address] [place] [address] 08/18/2024 8:40 AM EDT Laboratory Lab Mobile Phlebotomy [facility] [address] [place] [address] [facility], [facility] Mobile Home Draw [address] [place] [address] 08/20/2024 10:15 AM EDT Office Visit Ophthalmology, [address] [address] Cody Gonzalez, [address] [place] [address] 09/01/2024 8:40 AM EDT Laboratory Lab Mobile Phlebotomy [facility] [address] [place] [address] [facility], [facility] Mobile Home Draw [address] [place] [address] 09/15/2024 8:40 AM EDT Laboratory Lab Mobile Phlebotomy [facility] [address] [place] [address] [facility], [facility] Mobile Home Draw [address] [place] [address] Scheduled Orders Name Type Priority Associated Diagnoses Orde r Schedule BLADDER LAVAGE/INSTILLATION, SIMPLE (PHYSICIAN) Procedures Routine Hematuria, gross Ordered: 02/14/2024 Scheduled Procedures Name Priority Associated Diagnoses Date/Ti me COLONOSCOPY FLEXIBLE PROXIMAL DIAGNOSTIC Recall History of colonic polyps Portal hypertensive gastropathy (HCC) ESOPHAGOGASTRODUODENOSCOPY ( EGD), FLEXIBLE, TRANSORAL, DIAGNOSTIC Recall History of colonic polyps Portal hypertensive gastropathy (HCC) Scheduled Referrals Name Type Priority Associated Diagnoses Orde r Schedule WOUND CARE REFERRAL OP Referral Within 30 days (routine) Hematuria, gross Abnormal cystoscopy Ordered: 02/14/2024 Health Maintenance Due Date Last Done Comments Depression Screening 05/03/2022 05/03/2021 Zoster Vaccines (2 of 2) 12/13/2023 10/18/2023 Diabetic Eye Exam 01/17/2024 01/17/2023, , 01/17/2023, Additional history exists CKD PHOS USE SMARTSET 57612 01/28/202401/03, 07/26/2022, 12/05/2021, Additional history exists Diabetic Foot Exam 03/06/2024 03/06/2023, 0 01/03/2022, 03/02/2021, Additional history exists HbA1c 05/28/2024 11/27/2023, 05/03, 01/28/2023, Additional history exists Albumin/Creatinine Ratio 07/12/2024 023, 10/01/2022, 09/11/2021, Additional history exists COLONOSCOPY-ANNUAL AGES 18-100 08/09/2024 08/09/2023, 11/07/2022, 11/07/2022, Additional history exists GFR 08/15/2024 02/13/2024, 01/03, 01/17/2024, Additional history exists CKD HGB USE SMARTSET 78927 02/12/202502/12, 02/13/2024, 01/30/2024, Additional history exists Lipid Panel 01/28/2028 01/28/2023, [...] encounter Medical Devices Implanted Type Area Senior Oracle Database Administrator Device Identifier Shelf Expiration Date Model / Serial / Lot Clareon Iol Aspheric Hydrophobic Acrylic Iol Implanted:Qty: 1 on 04/23/2023 by Cody Gonzalez DO at OR [facility] Lens Left: Eye 11/12/2025 [id number] / [id number] / Viatorr Tips Endoprosthesis 8-10 Mm X 8cm / 2cm Implanted:Qty: 1 on 10/07/2020 by Go Alvarado MD at [facility] Right: Abdomen 03/03/2023 [id number] / / [id number] Description:Viatorr TIPS End oprosthesis 8-10 mm x 8cm / 2cm, Manufactored by [employer] Syr Pf 2ml Embospheres 100-300 - [id number] Implanted:Qty: 1 on 04/18/2021 by Kevin Lim DO at OR [facility] Left: Abdomen [employer] [id number] 11/25/2023 [id number] / / [id number] Lipiodol Injection - [id number] Implanted:Qty: 1 on 03/28/2022 at [facility] [employer] 03/01/2023 [id number] 01-2 / / [id number] Syr Pf 2ml Embospheres 100-300 - [id number] Implanted:Qty: 1 on 03/28/2022 at [facility] [employer] [id number] 08/31/2024 S220 / / [id number] -[id number] Clareon Iol Aspheric Hydrophobic Acrylic Iol Implanted:Qty: 1 on 04/02/2023 by Cody Gonzalez DO at OR [facility] Right: Eye [employer] 11/12/2025 CNA0T0 / [id number] / documented as of this encounter Visit Diagnoses Diagnosis Hematuria, gross- Primary Gross hematuria Abnormal cystoscopy Other nonspecific abnormal finding Elevated prostate specific antigen (PSA) documented in this encounter Advance Directives Documents on File Type Date Recorded 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 No Care Teams Photographs Curator Relationship Specialty Start Date End Date Francisco Cisse MD [address] [place] [address] PCP - General Internal Medicine 09/04/21 documented as of this encounter
--- OUTSIDE RECORDS SUMMARY | 2024-02-20 15:24 | External Medical Summary | Summary of Care ---
Author Name Unknown Organization [facility] Address [address] [facility] [place] [address] Phone [phone] Care Team Providers Care Automatic Mounter Name Role Phone Francisco Cisse MD Primary Care Provider + Reason for Visit * Reason Onset Date Comments FYI 02/13/2024 Encounter Details Date Type Department Care Team (Late st Contact Info) Description 02/13/2024 Telephone Urology Lynnette Fitzpatrick [address] [place] [address] Frank Peraza MD [address] [place] [address] FY Allergies No known active allergiesdocumented as of this encounter (statuses as of 02/18/2024) Medications Medication Sig Dispensed Refills Start Date [...] as of this encounter (statuses as of 02/18/2024) Active Problems Problem Noted Date Diagnosed Date [...] as of this encounter (statuses as of 02/18/2024) Resolved Problems Problem Noted Date Diagnosed Date [...] as of this encounter (statuses as of 02/18/2024) Immunizations Name Administration Dates Next Due COVID-19 mRNA, LNP-s, No Pre serve, 2-Dose Series ([employer]) 03/08/2021,02/15/2021 HepA Inact/HepB Recomb>=18yrs old 12/04/2019,04/2019,05/20/2019 11/19/2019 [...] encounter Miscellaneous Notes * Telephone Encounter - Sue Jenkins, MED ASSIST - 02/13/2024 8:54 AM EDT Patient called in , he has surgery with Dr peraza on , he called In he has been in and out of the ER @ [facility] for cath flushes, he feels he needs a continue cath flush and was wanting to be admitted @ the [facility]. He was going to see if his son can bring him to the hospital and then see if they can get a hold of Dr Peraza, if needed to see if that was a good plan. As of now, he said he was still draining, he just had some clots coming through. I asked him if he has been propping his feet up and drinking plenty of fluids and he said he has been trying. Toward the end of the conversation he said he his mouth has been so dry, so that says he isn't drinking much of anything. He had no other concerns at this time, he was good with the plan and will be heading [facility] ER for evaluation and treatment. documented in this encounter Plan of Treatment Upcoming Encounters Date Type Department Care Team (Late st Contact Info) Description 02/24/2024 10:45 AM EDT Imaging Radiology [address] 132 [facility] [place] [address] 03/03/2024 8:40 AM EDT Laboratory Lab Mobile Phlebotomy [facility] [address] [place] [address] [facility], [facility] Mobile Home Draw [address] [place] [address] 03/13/2024 2:00 PM EDT Office Visit Dermatology [facility] [address] [facility] [place] [address] Francisco Watson MD [address] [facility] [place] [address] 03/17/2024 8:40 AM EDT Laboratory Lab Mobile Phlebotomy [facility] [address] [place] [address] [facility], [facility] Mobile Home Draw [address] [place] [address] 03/18/2024 11:00 AM EDT Office Visit Urology, [facility] 132 [facility] [place] [address] Frank Peraza MD [address] [address] [place] [address] 03/24/2024 2:30 PM EDT Office Visit Hematology/Oncology [facility] [address] [facility] [place] [address] Ayaka Tatum CRNP 400 [facility] [place] [id number] 03/30/2024 12:00 PM EDT Office Visit Family Practice [facility] 132 [place] [address] Kristen Vences DO [address] [place] [address] 03/31/2024 8:40 AM EDT Laboratory Lab Mobile Phlebotomy [facility] [address] [place] [address] [facility] Mobile Home Draw [address] [place] [address] 04/07/2024 10:00 AM EDT Office Visit Gastroenterology, [facility] 132 [place] [address] Lamar Tatum CRNP [address] [place] [address] 04/14/2024 8:40 AM EDT Laboratory Lab Mobile Phlebotomy [facility] [address] [place] [address] [facility] Mobile Home Draw [address] [place] [address] 04/28/2024 8:40 AM EDT Laboratory Lab Mobile Phlebotomy [facility] [address] [place] [address] [facility], [facility] Mobile Home Draw [address] [place] [address] 05/12/2024 8:40 AM EDT Laboratory Lab Mobile Phlebotomy C [address] [place] [address] [facility], [facility] Mobile Home Draw [address] [place] [address] 05/26/2024 8:40 AM EDT Laboratory Lab Mobile Phlebotomy C [address] [place] [address] [facility], [facility] Mobile Home Draw [address] [place] [address] 06/09/2024 8:40 AM EDT Laboratory Lab Mobile Phlebotomy [facility] [address] [place] [address] [facility] Mobile Home Draw [address] [place] [address] 06/23/2024 8:40 AM EDT Laboratory Lab Mobile Phlebotomy [facility] [address] [place] [address] [facility] Mobile Home Draw [address] [place] [address] 07/07/2024 8:40 AM EDT Laboratory Lab Mobile Phlebotomy [facility] [address] [place] [address] [facility], [facility] Mobile Home Draw [address] [place] [address] 07/21/2024 8:40 AM EDT Laboratory Lab Mobile Phlebotomy [facility] [address] [place] [address] [facility], [facility] Mobile Home Draw [address] [place] [address] 08/04/2024 8:40 AM EDT Laboratory Lab Mobile Phlebotomy [facility] [address] [place] [address] [facility], [facility] Mobile Home Draw [address] [place] [address] 08/18/2024 8:40 AM EDT Laboratory Lab Mobile Phlebotomy [facility] [address] [place] [address] [facility], [facility] Mobile Home Draw [address] [place] [address] 08/20/2024 10:15 AM EDT Office Visit Ophthalmology, [facility] 132 [facility] [place] [address] Cody Gonzalez DO [facility] [place] [address] 09/01/2024 8:40 AM EDT Laboratory Lab Mobile Phlebotomy [facility] [address] [place] [address] [facility], [facility] Mobile Home Draw [address] [place] [address] 09/15/2024 8:40 AM EDT Laboratory Lab Mobile Phlebotomy [facility] [address] [place], [place] [id number] [facility], [facility] Mobile Home Draw [address] [place] [address] Scheduled Procedures Name Priority Associated Diagnoses Date/Ti [...] Additional history exists CKD PHOS USE SMARTSET 71025 01/28/202401/03, 07/26/2022, 12/05/2021, Additional history exists Diabetic Foot Exam 03/06/2024 03/06/2023, 0 01/03/2022, 03/02/2021, Additional history exists HbA1c 05/28/2024 11/27/2023, 05/03, 01/28/2023, Additional history exists Albumin/Creatinine Ratio 07/12/2024 023, 10/01/2022, 09/11/2021, Additional history exists COLONOSCOPY-ANNUAL AGES 18-100 08/09/2024 08/09/2023, 11/07/2022, 11/07/2022, Additional history exists GFR 08/15/2024 02/13/2024, 01/03, 01/17/2024, Additional history exists CKD HGB USE SMARTSET 60409 02/17/202502/17, 02/18/2024, 02/13/2024, Additional history exists Lipid [...] this encounter Medical Devices Implanted Type Area Flight Superintendent Device Identifier Shelf Expiration Date Model / Serial / Lot Clareon Iol Aspheric Hydrophobic Acrylic Iol Implanted:Qty: 1 on 04/23/2023 by Cody Gonzalez DO at OR [facility] Lens Left: Eye 11/12/2025 CNA0T0 / [id number] / Viatorr Tips Endoprosthesis 8-10 Mm X 8cm / 2cm Implanted:Qty: 1 on 10/07/2020 by Go Alvarado MD at [facility] Right: Abdomen 03/03/2023 [id number] / / [id number] Description:Viatorr TIPS End oprosthesis 8-10 mm x 8cm / 2cm, Manufactored by [employer] Syr Pf 2ml Embospheres 100-300 - [id number] Implanted:Qty: 1 on 04/18/2021 by Kevin Lim DO at OR [facility] Left: Abdomen [employer] [id number] 11/25/2023 S220GH / / [id number] Lipiodol Injection - [id number] Implanted:Qty: 1 on 03/28/2022 at [facility] [employer] 03/01/2023 [id number] 01-2 / / [id number] Syr Pf 2ml Embospheres 100-300 - [id number] Implanted:Qty: 1 on 03/28/2022 at [facility] [employer] [id number] 08/31/2024 S220GH / / [id number] -[id number] Clareon Iol Aspheric Hydrophobic Acrylic Iol Implanted:Qty: 1 on 04/02/2023 by Cody Gonzalez DO at OR [facility] Right: Eye JAZMIN 11/12/2025 CNA0T0 / [id number] / documented as of this encounter Advance Directives Documents on File Type Date Recorded Patient Concrete Tester Expl anation Advance Directives and Living Will 12/11/2022 ADVANCE DIRECTIVE / LIVING WILL LIVING WILL Power of Bowling Ball Mold Assembler 12/11/2022 POWER OF A TTORNEY Latest [...] the patient have Health Care Power of Bowling Ball Mold Assembler? No Care Teams Automatic Mounter Relationship Specialty Start Date End Date Francisco Cisse MD [address] [place] [place] [address] PCP - General Internal Medicine 09/04/21 documented as of this encounter
--- OUTSIDE RECORDS SUMMARY | 2024-02-20 15:24 | External Medical Summary | Summary of Care ---
Author Name Unknown Organization [facility] Address [address] [facility] [place] [address] Phone [phone] Care Team Providers Care Groundskeeper Porter Name Role Phone Francisco Cisse MD Primary Care Provider + Reason for Visit * Reason Onset Date Comments Health Maintenance 02/14/2024 Encounter Details Date Type Department Care Team (Late st Contact Info) Description 02/14/2024 Telephone General Internal Medicine [facility] 200 [place] [address] Francisco Cisse MD 200 [place] [address] Health Maintenance Allergies No known active allergiesdocumented as of [...] mRNA, LNP-s, No Pre serve, 2-Dose Series ([employer]) 03/08/2021,02/15/2021 HepA Inact/HepB Recomb>=18yrs old 12/04/2019,04/2019,05/20/2019 11/19/2019 [...] encounter Miscellaneous Notes * Telephone Encounter - Claudette ANA Lagos - 02/14/2024 10:09 AM EDT Care Gaps Comprehensive Care Outreach Last Office/Telemedicine Visit: 12/06/2023 (in office), Visit date not found (telemedicine) Next Office Visit: Visit date not found Hemoglobin AIC Results: Lab Results Component Value [...] POCT - [facility] 5.6 03/02/2021 11:54 AM BP Readings from Last 1 Encounters: 02/13/24 140/59 Reviewed Health Maintenance below: Health Maintenance Topic Date Due Depression Screening 05/03/2022 Zoster Vaccines (2 of 2) 12/13/2023 Diabetic Eye Exam 01/17/2024 CKD PHOS USE SMARTSET 33129 01/28/2024 Diabetic Foot Exam 03/06/2024 HbA1c 05/28/2024 Albumin/Creatinine Ratio 07/12/2024 COLONOSCOPY-ANNUAL AGES 18-100 08/09/2024 GFR 08/15/2024 [facility] Spoke to patient he is dealing with some health issues right now. Urology appt today. Has been in and out of er. I will send a message to pcp to see if they can get him back in [place]. He had to cancelhis hospital follow up . Care Gap Outreach Action Taken: Spoke to patient documented in this encounter Plan of Treatment Upcoming Encounters Date Type Department Care Team (Late st Contact Info) Description 02/14/2024 2:45 PM EDT Office Visit Urology Lynnette Fitzpatrick [address] [place] [address] Frank Peraza MD [address] [facility] [address] 02/17/2024 8:00 AM EDT Office Visit Radiology, [place] [address] [place] [address] Chavez Sapp MD [address] [place] [address] 02/17/2024 9:00 AM EDT Office Visit Transplant Clinic, [place] [address] [place] [address] Avinash Vega MD [facility] [address] [place] Demian Mancini MD [address] [place], [place] Millie Gonzalez, RESIDENTIAL COUNSELOR [address] [place] [address] [facility] Trans[facility] [address] [place] [address] 02/18/2024 8:40 AM EDT Laboratory Lab Mobile Phlebotomy [facility] [address] [place] [address] [facility], [facility] Mobile Home Draw [address] [place] [address] 02/24/2024 10:45 AM EDT Imaging Radiology [address], [address] [address] 03/03/2024 8:40 AM EDT Laboratory Lab Mobile Phlebotomy [facility] [address] [place] [address] [facility], [facility] Mobile Home Draw [address] [place] [address] 03/13/2024 2:00 PM EDT Office Visit Dermatology [facility] [address] [place] [address] Francisco Watson MD [address] [place] [address] 03/17/2024 8:40 AM EDT Laboratory Lab Mobile Phlebotomy [facility] [address] [place] [address] [facility], [facility] Mobile Home Draw [address] [place] [address] 03/24/2024 2:30 PM EDT Office Visit Hematology/Oncology [facility] [address] [place] [address] Ayaka Tatum CRNP [address] [place] [id number] 03/30/2024 12:00 PM EDT Office Visit Family Practice [facility] [address] [place] [address] Kristen Vences DO [address] [place] [address] 03/31/2024 8:40 AM EDT Laboratory Lab Mobile Phlebotomy [facility] [address] [place] [address] [facility], [facility] Mobile Home Draw [address] [place] [address] 04/07/2024 10:00 AM EDT Office Visit Gastroenterology, [facility] [address] [place] [address] Lamar Tatum CRNP [address] [place] [address] 04/14/2024 8:40 AM EDT Laboratory Lab Mobile Phlebotomy [facility] [address] [place] [address] [facility], [facility] Mobile Home Draw [address] [place] [address] 04/28/2024 8:40 AM EDT Laboratory Lab Mobile Phlebotomy [facility] [address] [place] [address] [facility], [facility] Mobile Home Draw [address] [place] [address] 05/12/2024 8:40 AM EDT Laboratory Lab Mobile Phlebotomy C [address] [place] [address] [facility], [facility] Mobile Home Draw [address] [place] [address] 05/26/2024 8:40 AM EDT Laboratory Lab Mobile Phlebotomy C [address] [place] [address] [facility], [facility] Mobile Home Draw [address] [place] [address] 06/09/2024 8:40 AM EDT Laboratory Lab Mobile Phlebotomy [facility] [address] [place] [address] [facility], [facility] Mobile Home Draw [address] [place] [address] 06/23/2024 8:40 AM EDT Laboratory Lab Mobile Phlebotomy [facility] [address] [place] [address] [facility], [facility] Mobile Home Draw [address] [place] [address] 07/07/2024 8:40 AM EDT Laboratory Lab Mobile Phlebotomy [facility] [address] [place] [address] [facility], [facility] Mobile Home Draw [address] [place] [address] 07/21/2024 8:40 AM EDT Laboratory Lab Mobile Phlebotomy [facility] [address] [place] [address] [facility], [facility] Mobile Home Draw [address] [place] [address] 08/04/2024 8:40 AM EDT Laboratory Lab Mobile Phlebotomy [facility] [address] [place] [address] [facility] Mobile Home Draw [address] [place] [address] 08/18/2024 8:40 AM EDT Laboratory Lab Mobile Phlebotomy [facility] [address] [place] [address] [facility], [facility] Mobile Home Draw [address] [place] [address] 08/20/2024 10:15 AM EDT Office Visit Ophthalmology, [facility] 132 [facility] [place] [address] Cody Gonzalez DO [address] [place] [address] 09/01/2024 8:40 AM EDT Laboratory Lab Mobile Phlebotomy [facility] [address] [place] [address] [facility], [facility] Mobile Home Draw [address] [place] [address] 09/15/2024 8:40 AM EDT Laboratory Lab Mobile Phlebotomy [facility] [address] [place] [address] [facility], [facility] Mobile Home Draw [address] [place] [address] Scheduled Procedures Name Priority Associated Diagnoses Date/Ti [...] Additional history exists CKD PHOS USE SMARTSET 71406 01/28/202401/03, 07/26/2022, 12/05/2021, Additional history exists Diabetic Foot Exam 03/06/2024 03/06/2023, 0 01/03/2022, 03/02/2021, Additional history exists HbA1c 05/28/2024 11/27/2023, 05/03, 01/28/2023, Additional history exists Albumin/Creatinine Ratio 07/12/2024 023, 10/01/2022, 09/11/2021, Additional history exists COLONOSCOPY-ANNUAL AGES 18-100 08/09/2024 08/09/2023, 11/07/2022, 11/07/2022, Additional history exists GFR 08/15/2024 02/13/2024, 01/03, 01/17/2024, Additional history exists CKD HGB USE SMARTSET 68361 02/12/202502/12, 02/13/2024, 01/30/2024, Additional history exists Lipid [...] this encounter Medical Devices Implanted Type Area Awning Assembler Device Identifier Shelf Expiration Date Model / Serial / Lot Clareon Iol Aspheric Hydrophobic Acrylic Iol Implanted:Qty: 1 on 04/23/2023 by Cody Gonzalez DO at [facility] Lens Left: Eye 11/12/2025 CNA0T0 / [id number] / Viatorr Tips Endoprosthesis 8-10 Mm X 8cm / 2cm Implanted:Qty: 1 on 10/07/2020 by Go Alvarado MD at [facility] Right: Abdomen 03/03/2023 [id number] / / [id number] Description:Viatorr TIPS End oprosthesis 8-10 mm x 8cm / 2cm, Manufactored by [employer] Syr Pf 2ml Embospheres 100-300 - [id number] Implanted:Qty: 1 on 04/18/2021 by Kevin Lim DO at OR [facility] Left: Abdomen [employer] [id number] 11/25/2023 S220 / / [id number] Lipiodol Injection - [id number] Implanted:Qty: 1 on 03/28/2022 at [facility] [employer] 03/01/2023 [id number] 01-2 / / [id number] Syr Pf 2ml Embospheres 100-300 - [id number] Implanted:Qty: 1 on 03/28/2022 at [facility] [employer] [id number] 08/31/2024 S220 / / [id number] -[id number] Clareon Iol Aspheric Hydrophobic Acrylic Iol Implanted:Qty: 1 on 04/02/2023 by Cody Gonzalez DO at OR [facility] Right: Eye JAZMIN 11/12/2025 CNA0T0 / [id number] / documented as of this encounter Advance Directives Documents on File Type Date Recorded Patient Wharf Tender Helper Expl anation Advance Directives and Living Will 12/11/2022 ADVANCE DIRECTIVE / LIVING WILL LIVING WILL Power of Cushion Stuffer 12/11/2022 POWER OF A TTORNEY Latest Code [...] the patient have Health Care Power of Cushion Stuffer? No Care Teams Groundskeeper Porter Relationship Specialty Start Date End Date Francisco Cisse MD [address] [place] [address] [place] [address] PCP - General Internal Medicine 09/04/21 documented as of this encounter
--- OUTSIDE RECORDS SUMMARY | 2024-02-20 15:24 | External Medical Summary | Summary of Care ---
Author Name Unknown Organization [facility] Address [address] [facility] [place] [address] Phone [phone] Care Team Providers Care Title I Assistant Name Role Phone Francisco Cisse MD Primary Care Provider + Encounter Details Date Type Department Care Team (Late st Contact Info) Description 02/14/2024 Population Health External Data Unspecified Department Allergies [...] mRNA, LNP-s, No Pre serve, 2-Dose Series (BECC) 03/08/2021,02/15/2021 HepA Inact/HepB Recomb>=18yrs old 12/04/2019,04/2019,05/20/2019 11/19/2019 PPD 06/18/2017, 3,01/09/2012,06/2011 Pneumococcal Conjugate Vacc, 13 Valent (Prevnar) 05/01/2017 Pneumococcal Polysaccharide PPV23 (Pneumovax) 08/28/2022,10/25/2015,07/14/2012 Season Influenza, Quad, PF, Adjuvanted, 65+ Yrs, IM (FLUAD) 10/07/2020(Deferred: Patient Refused - pt says he already had his shot last month at [facility] Handy Lyons and Mckinley Cobian made aware) [...] [address] [place] [address] [place] [address] Frank Peraza MD [address] [place] [address] [place] [address] 02/17/2024 8:00 AM EDT Office Visit [facility] [place] [address] [place] [address] Chavez Sapp MD [address] [place] [address] 02/18/2024 8:40 AM EDT Laboratory Lab Mobile Phlebotomy [facility] [address] [place] [address] [facility], [facility] Mobile Home Draw [address] [place] [address] 02/24/2024 10:45 AM EDT Imaging Radiology [address] [address] 03/03/2024 8:40 AM EDT Laboratory Lab Mobile Phlebotomy [facility] [address] [place] [address] [facility], [facility] Mobile Home Draw [address] [place] [address] 03/13/2024 2:00 PM EDT Office Visit Dermatology [facility] [address] [place] [address] Francisco Watson MD 200 [place] [address] 03/17/2024 8:40 AM EDT Laboratory Lab Mobile Phlebotomy [facility] [address] [place] [address] [facility], [facility] Mobile Home Draw [address] [place] [address] 03/24/2024 2:30 PM EDT Office Visit Hematology/Oncology [facility] [address] [place] [address] Ayaka Tatum CRNP [address] [place] [address] 03/30/2024 12:00 PM EDT Office Visit Family Practice [facility] [address] [facility] [place] [address] Kristen Vences DO 132 [place] [address] 03/31/2024 8:40 AM EDT Laboratory Lab Mobile Phlebotomy [facility] [address] [place] [address] [facility], [facility] Mobile Home Draw [address] [place] [address] 04/07/2024 10:00 AM EDT Office Visit Gastroenterology, [facility] [address] [facility] [address] Lamar Tatum CRNP [address] [place] [address] 04/14/2024 8:40 AM EDT Laboratory Lab Mobile Phlebotomy [facility] [address] [place] [address] [facility] Mobile Home Draw [address] [place] [address] 04/28/2024 8:40 AM EDT Laboratory Lab Mobile Phlebotomy [facility] [address] [place] [address] [facility] Mobile Home Draw [address] [place] [address] 05/12/2024 8:40 AM EDT Laboratory Lab Mobile Phlebotomy [facility] [address] [place] [address] [facility] Mobile Home Draw [address] [place] [address] 05/26/2024 8:40 AM EDT Laboratory Lab Mobile Phlebotomy [facility] [address] [place] [address] [facility] Mobile Home Draw [address] [place] [address] 06/09/2024 8:40 AM EDT Laboratory Lab Mobile Phlebotomy [facility] [address] [place] [address] [facility] Mobile Home Draw [address] [place] [address] 06/23/2024 8:40 AM EDT Laboratory Lab Mobile Phlebotomy [facility] [address] [place] [address] [facility] Mobile Home Draw [address] [place] [address] 07/07/2024 8:40 AM EDT Laboratory Lab Mobile Phlebot[facility] [address] [place] [address] [facility] Mobile Home Draw [address] [place] [address] 07/21/2024 8:40 AM EDT Laboratory Lab Mobile Phlebotomy [facility] [address] [place] [address] [facility] Mobile Home Draw [address] [place] [address] 08/04/2024 8:40 AM EDT Laboratory Lab Mobile Phlebot[facility] [address] [place] [address] [facility] Home Draw [address] [place] [address] 08/18/2024 8:40 AM EDT Laboratory Lab Mobile Phlebotomy [facility] [address] [place] [address] [facility] Home Draw [address] [place] [address] 08/20/2024 10:15 AM EDT Office Visit Ophthalmology, [address] [address] Cody Gonzalez, DO [address] [place] [address] 09/01/2024 8:40 AM EDT Laboratory Lab Mobile Phlebotomy [facility] [address] [place] [address] [facility] Mobile Home Draw [address] [place] [address] 09/15/2024 8:40 AM EDT Laboratory Lab Mobile Phlebot[facility] [address] [place] [address] [facility] Mobile Home Draw [address] [place] [address] Scheduled Procedures Name Priority Associated Diagnoses Date/Ti [...] Additional history exists CKD PHOS USE SMARTSET 52288 01/28/202401/03, 07/26/2022, 12/05/2021, Additional history exists Diabetic Foot Exam 03/06/2024 03/06/2023, 0 01/03/2022, 03/02/2021, Additional history exists HbA1c 05/28/2024 11/27/2023, 05/03, 01/28/2023, Additional history exists Albumin/Creatinine Ratio 07/12/2024 023, 10/01/2022, 09/11/2021, Additional history exists COLONOSCOPY-ANNUAL AGES 18-100 08/09/2024 08/09/2023, 11/07/2022, 11/07/2022, Additional history exists GFR 08/15/2024 02/13/2024, 01/03, 01/17/2024, Additional history exists CKD HGB USE SMARTSET 74088 02/12/202502/12, 02/13/2024, 01/30/2024, Additional history exists Lipid [...] this encounter Medical Devices Implanted Type Area Steeler Device Identifier Shelf Expiration Date Model / Serial / Lot Clareon Iol Aspheric Hydrophobic Acrylic Iol Implanted:Qty: 1 on 04/23/2023 by Cody Gonzalez DO at OR [facility] Lens Left: Eye 11/12/2025 CNA0T0 / [id number] / Viatorr Tips Endoprosthesis 8-10 Mm X 8cm / 2cm Implanted:Qty: 1 on 10/07/2020 by Go Alvarado MD at [facility] Right: Abdomen 03/03/2023 [id number] / / [id number] Description:Viatorr TIPS End oprosthesis 8-10 mm x 8cm / 2cm, Manufactored by [employer] Syr Pf 2ml Embospheres 100-300 - [id number] Implanted:Qty: 1 on 04/18/2021 by Kevin Lim DO at OR [facility] Left: Abdomen [employer] [id number] 11/25/2023 S220GH / / [id number] Lipiodol Injection - [id number] Implanted:Qty: 1 on 03/28/2022 at [facility] [employer] 03/01/2023 86352-46 01-2 / / [id number] Syr Pf 2ml Embospheres 100-300 - [id number] Implanted:Qty: 1 on 03/28/2022 at [facility] [employer] [id number] 08/31/2024 S220GH / / [id number] -[id number] Clareon Iol Aspheric Hydrophobic Acrylic Iol Implanted:Qty: 1 on 04/02/2023 by Cody Gonzalez DO at OR [facility] Right: Eye JAZMIN 11/12/2025 CNA0T0 / [id number] / documented as of this encounter Advance Directives Documents on File Type Date Recorded Patient Programming Equipment Operator Expl anation Advance Directives and Living Will 12/11/2022 ADVANCE DIRECTIVE / LIVING WILL LIVING WILL Power of Group Contract Analyst 12/11/2022 POWER OF A TTORNEY Latest [...] the patient have Health Care Power of Group Contract Analyst? No Care Teams Title I Assistant Relationship Specialty Start Date End Date Francisco Cisse MD [address] [place] [address] PCP - General Internal Medicine 09/04/21 documented as of this encounter
--- OUTSIDE RECORDS SUMMARY | 2024-02-20 15:24 | External Medical Summary ---
Author Name Unknown Address Unknown Organization [facility] [address] [place] [address] Laboratory Report Ordering Provider Test Date Status NEELAM RICCI 02/18/2024 12:00:00 Final Observation Date Value Abnormality Reference (Units ) Status SYNC LEUKOCYTES IN BLOOD BY AUTOMATED COUNT 02/18/2024 12:00:00 4.58 4.00-10.80 (K/uL) Final Segs 02/18/2024 12:00:00 73.2 40.0-75.0 (%) Final Lymphs % 02/18/2024 12:00:00 15.7 Below low normal 18.0-42.0 (%) Final Monos 02/18/2024 12:00:00 5.0 1.0-11.0 (%) Final Eosinophils 02/18/2024 12:00:00 5.2 0.0-6.0 (%) Final Basos 02/18/2024 12:00:00 0.9 0.0-2.0 (%) Final Absolute Segs 02/18/2024 12:00:00 3.35 1.80-7.70 (K/uL) Final Lymphs, absolute 02/18/2024 12:00:00 0.72 Below low normal 1.00-4.80 (K/ul) Final Monos, Abs 02/18/2024 12:00:00 0.23 0.00-1.10 (K/uL) Final Eos, Abs 02/18/2024 12:00:00 0.24 0.00-0.70 (K/uL) Final Basos, Abs 02/18/2024 12:00:00 0.04 0.00-0.20 (K/uL) Final Performing Location LABORATORY [facility] [place] [address] [place] [address]
--- OUTSIDE RECORDS SUMMARY | 2024-02-20 15:24 | External Medical Summary | Summary of Care ---
Author Name Unknown Organization [facility] Address [address] [facility] [place] [address] Phone [phone] Care Team Providers Care Fiscal Specialist Name Role Phone Francisco Cisse MD Primary Care Provider + Encounter Details Date Type Department Care Team (Late st Contact Info) Description 02/17/2024 1:00 PM EDT Nurse Only Urology, [facility] [address] [place] [address] [place], Nurse Urology [facility] [address] [place] [address] Arrived Allergies No known active allergiesdocumented as of this encounter (statuses as of 02/17/2024) Medications Medication Sig Dispensed Refills Start Date [...] as of this encounter (statuses as of 02/17/2024) Active Problems Problem Noted Date Diagnosed Date [...] as of this encounter (statuses as of 02/17/2024) Resolved Problems Problem Noted Date Diagnosed Date [...] as of this encounter (statuses as of 02/17/2024) Immunizations Name Administration Dates Next Due COVID-19 mRNA, LNP-s, No Pre serve, 2-Dose Series ([employer]) 03/08/2021,02/15/2021 HepA Inact/HepB Recomb>=18yrs old 12/04/2019,04/2019,05/20/2019 [...] as of this encounter Nursing Notes * Kaylie Glass LPN - 02/17/2024 1:45 PM EDT Patient's bladder was instilled 95 cc of sterile. Catheter balloon then deflated and catheter removed. Patient proceeded to void, spontaneously for approximately 50 cc of red urine. Patient toleratedprocedure well. Dr Peraza made aware. documented in this encounter Plan of Treatment Upcoming Encounters Date Type Department Care Team (Late st Contact Info) Description 02/18/2024 8:40 AM EDT Laboratory Lab Mobile Phlebotomy [facility] [address] [place] [address] [facility], [facility] Mobile Home Draw [address] [place] [address] 02/24/2024 10:45 AM EDT Imaging Radiology [place] [id number] 03/03/2024 8:40 AM EDT Laboratory Lab Mobile Phlebotomy [facility] [address] [place] [address] [facility], [facility] Mobile Home Draw [address] [place] [address] 03/13/2024 2:00 PM EDT Office Visit Dermatology [facility] [address] [facility] [place] [address] Francisco Watson MD [address] [facility] [place] [address] 03/17/2024 8:40 AM EDT Laboratory Lab Mobile Phlebotomy [facility] [address] [place] [address] [facility], [facility] Mobile Home Draw [address] [place] [address] 03/24/2024 2:30 PM EDT Office Visit Hematology/Oncology [facility] [address] [place] [address] Ayaka Tatum CRNP [address] [place] [address] 03/30/2024 12:00 PM EDT Office Visit Family Practice [facility] [address] [place] [address] Kristen Vences DO 132 [facility] [place] [address] 03/31/2024 8:40 AM EDT Laboratory Lab Mobile Phlebotomy [facility] [address] [place] [address] [facility], [facility] Mobile Home Draw [address] [place] [address] 04/07/2024 10:00 AM EDT Office Visit Gastroenterology, [facility] [address] [place] [address] Lamar Tatum CRNP [address] [place] [address] 04/14/2024 8:40 AM EDT Laboratory Lab Mobile Phle[facility] [address] [place] [address] [facility], [facility] Mobile Home Draw [address] [place] [address] 04/28/2024 8:40 AM EDT Laboratory Lab Mobile Phlebot[facility] [address] [place] [address] [facility], [facility] Mobile Home Draw [address] [place] [address] 05/12/2024 8:40 AM EDT Laboratory Lab Mobile Phlebot[facility] [address] [place] [address] [facility], [facility] Mobile Home Draw [address] [place] [address] 05/26/2024 8:40 AM EDT Laboratory Lab Mobile Phlebotomy [facility] [address] [place] [address] [facility] Mobile Home Draw [address] [place] [address] 06/09/2024 8:40 AM EDT Laboratory Lab Mobile Phlebotomy [facility] [address] [place] [address] [facility], [facility] Mobile Home Draw [address] [place] [address] 06/23/2024 8:40 AM EDT Laboratory Lab Mobile Phlebotomy [facility] [address] [place] [address] [facility], [facility] Mobile Home Draw [address] [place] [address] 07/07/2024 8:40 AM EDT Laboratory Lab Mobile Phlebotomy [facility] [address] [place] [address] [facility], [facility] Mobile Home Draw [address] [place] [address] 07/21/2024 8:40 AM EDT Laboratory Lab Mobile Phlebot[facility] [address] [place] [address] [facility], [facility] Mobile Home Draw [address] [place] [address] 08/04/2024 8:40 AM EDT Laboratory Lab Mobile Phlebotomy [facility] [address] [place] [address] [facility], [facility] Mobile Home Draw [address] [place] [address] 08/18/2024 8:40 AM EDT Laboratory Lab Mobile Phlebotomy [facility] [address] [place] [address] Gm, Gml Mobile Home Draw [address] [place] [address] 08/20/2024 10:15 AM EDT Office Visit Ophthalmology, [address] [address] Cody Gonzalez, [address] [place] [address] 09/01/2024 8:40 AM EDT Laboratory Lab Mobile Phlebotomy [facility] [address] [place] [address] [facility], [facility] Mobile Home Draw [address] [place] [address] 09/15/2024 8:40 AM EDT Laboratory Lab Mobile Phlebotomy [facility] [address] [place] [address] [facility], [facility] Mobile Home Draw [address] [place] [address] Scheduled Procedures Name Priority Associated Diagnoses Date/Ti [...] Additional history exists CKD PHOS USE SMARTSET 02671 01/28/202401/03, 07/26/2022, 12/05/2021, Additional history exists Diabetic Foot Exam 03/06/2024 03/06/2023, 0 01/03/2022, 03/02/2021, Additional history exists HbA1c 05/28/2024 11/27/2023, 05/03, 01/28/2023, Additional history exists Albumin/Creatinine Ratio 07/12/2024 023, 10/01/2022, 09/11/2021, Additional history exists COLONOSCOPY-ANNUAL AGES 18-100 08/09/2024 08/09/2023, 11/07/2022, 11/07/2022, Additional history exists GFR 08/15/2024 02/13/2024, 01/03, 01/17/2024, Additional history exists CKD HGB USE SMARTSET 54335 02/12/202502/12, 02/13/2024, 01/30/2024, Additional history exists Lipid [...] this encounter Medical Devices Implanted Type Area Aerial Installer Device Identifier Shelf Expiration Date Model / Serial / Lot Clareon Iol Aspheric Hydrophobic Acrylic Iol Implanted:Qty: 1 on 04/23/2023 by Cody Gonzalez DO at OR [facility] Lens Left: Eye 11/12/2025 CNA0T0 / [id number] / Viatorr Tips Endoprosthesis 8-10 Mm X 8cm / 2cm Implanted:Qty: 1 on 10/07/2020 by Go Alvarado MD at [facility] Right: Abdomen 03/03/2023 [id number] / / [id number] Description:Viatorr TIPS End oprosthesis 8-10 mm x 8cm / 2cm, Manufactored by [employer] Syr Pf 2ml Embospheres 100-300 - [id number] Implanted:Qty: 1 on 04/18/2021 by Kevin Lim DO at OR [facility] Left: Abdomen [employer] [id number] 11/25/2023 S220GH / / [id number] Lipiodol Injection - [id number] Implanted:Qty: 1 on 03/28/2022 at [facility] [employer] 03/01/2023 02319-30 01-2 / / [id number] Syr Pf 2ml [facility] 100-300 - [id number] Implanted:Qty: 1 on 03/28/2022 at [facility] [employer] [id number] 08/31/2024 S220GH / / [id number] -5 Clareon Iol Aspheric Hydrophobic Acrylic Iol Implanted:Qty: 1 on 04/02/2023 by Cody Gonzalez DO at OR [facility] Right: Eye JAZMIN 11/12/2025 CNA0T0 / [id number] / documented as of this encounter Visit Diagnoses Diagnosis Hematuria, gross- Primary Gross hematuria documented in this encounter Advance Directives Documents on File Type Date Recorded Patient Dry Room Attendant Expl anation Advance Directives and Living Will 12/11/2022 ADVANCE DIRECTIVE / LIVING WILL LIVING WILL Power of Explosives Worker 12/11/2022 POWER OF A TTORNEY Latest [...] the patient have Health Care Power of Explosives Worker? No Care Teams Fiscal Specialist Relationship Specialty Start Date End Date Francisco Cisse MD [address] [place] [address] [place] [address] PCP - General Internal Medicine 09/04/21 documented as of this encounter
--- OUTSIDE RECORDS SUMMARY | 2024-02-20 15:24 | External Medical Summary | Summary of Care ---
Author Name Unknown Organization [facility] Address [address] [facility] [place] [address] Phone [phone] Care Team Providers Care Rv Detailer Name Role Phone Francisco Cisse MD Primary Care Provider + Encounter Details Date Type Department Care Team (Late st Contact Info) Description 02/18/2024 Telephone Hematology/Oncology [facility] [address] [facility] [address] Ayaka Tatum CRNP [address] [place] [address] Allergies No known active allergiesdocumented as of [...] A1c goal of less than 7.0% ([facility]) Use to test blood sugars [...] his shot last month at [facility] Handy Lyons and Mckinley Cobian [...] encounter Miscellaneous Notes * Telephone Encounter - Ayaka Tatum CRNP [...] in scheduling 1 unit PRBC transfusion at [facility]. With T&S please fax order for patient to have ferritin and iron screen drawn prior to transfusion. Orders placed. Repeat CBCd in one week. documented in this encounter Plan of Treatment Upcoming Encounters Date Type Department Care Team (Late st Contact Info) Description 02/24/2024 10:45 AM EDT Imaging Radiology [address] [place] [address] 03/03/2024 8:40 AM EDT Laboratory Lab Mobile Phlebotomy [facility] [address] [place] [address] [facility] Mobile Home Draw [address] [place] [address] 03/13/2024 2:00 PM EDT Office Visit Dermatology [facility] [address] [facility] [place] [address] Francisco Watson MD [address] [facility] [place] [address] 03/17/2024 8:40 AM EDT Laboratory Lab Mobile Phlebotomy [facility] [address] [place] [address] [facility], [facility] Mobile Home Draw [address] [place] [address] 03/18/2024 11:00 AM EDT Office Visit Urology, [facility] [address] [facility] [address] Frank Peraza MD 27 [facility] [address] [place] [address] 03/24/2024 2:30 PM EDT Office Visit Hematology/Oncology [facility] [address] [place] [address] Ayaka Tatum CRNP 400 [place] [address] 03/30/2024 12:00 PM EDT Office Visit Family Practice [facility] 132 [place] [address] Kristen Vences DO 132 [facility] [place] [address] 03/31/2024 8:40 AM EDT Laboratory Lab Mobile Phlebotomy [facility] [address] [place] [address] [facility], [facility] Mobile Home Draw [address] [place] [address] 04/07/2024 10:00 AM EDT Office Visit Gastroenterology, [facility] 132 [place] [address] Lamar Tatum CRNP 132 [facility] [place] [address] 04/14/2024 8:40 AM EDT Laboratory Lab Mobile Phlebotomy [facility] [address] [place] [address] [facility], [facility] Mobile Home Draw [address] [place] [address] 04/28/2024 8:40 AM EDT Laboratory Lab Mobile Phlebotomy [facility] [address] [place] [address] [facility] Mobile Home Draw [address] [place] [address] 05/12/2024 8:40 AM EDT Laboratory Lab Mobile Phlebotomy [facility] [address] [place] [address] [facility] Mobile Home Draw [address] [place] [address] 05/26/2024 8:40 AM EDT Laboratory Lab Mobile Phlebotomy [facility] [address] [place] [address] [facility] Mobile Home Draw [address] [place] [address] 06/09/2024 8:40 AM EDT Laboratory Lab Mobile Phlebotomy [facility] [address] [place] [address] [facility] Mobile Home Draw [address] [place] [address] 06/23/2024 8:40 AM EDT Laboratory Lab Mobile Phlebotomy [facility] [address] [place] [address] [facility] Mobile Home Draw [address] [place] [address] 07/07/2024 8:40 AM EDT Laboratory Lab Mobile Phlebotomy [facility] [address] [place] [address] [facility], [facility] Mobile Home Draw [address] [place] [address] 07/21/2024 8:40 AM EDT Laboratory Lab Mobile Phlebotomy [facility] [address] [place] [address] [facility], [facility] Mobile Home Draw [address] [place] [address] 08/04/2024 8:40 AM EDT Laboratory Lab Mobile Phlebotomy [facility] [address] [place] [address] [facility], [facility] Mobile Home Draw [address] [place] [address] 08/18/2024 8:40 AM EDT Laboratory Lab Mobile Phlebotomy [facility] [address] [place] [address] [facility], [facility] Mobile Home Draw [address] [place] [address] 08/20/2024 10:15 AM EDT Office Visit Ophthalmology, [address] [id number] Cody Gonzalez DO [address] [place] [address] 09/01/2024 8:40 AM EDT Laboratory Lab Mobile Phlebotomy [facility] [address] [place] [address] [facility], [facility] Mobile Home Draw [address] [place] [address] 09/15/2024 8:40 AM EDT Laboratory Lab Mobile Phlebotomy [facility] [address] [place] [address] [facility], [facility] Mobile Home Draw [address] [place], [place] [address] Scheduled Orders Name Type Priority Associated Diagnoses [...] Additional history exists CKD PHOS USE SMARTSET 74138 01/28/202401/03, 07/26/2022, 12/05/2021, Additional history exists Diabetic Foot Exam 03/06/2024 03/06/2023, 0 01/03/2022, 03/02/2021, Additional history exists HbA1c 05/28/2024 11/27/2023, 05/03, 01/28/2023, Additional history exists Albumin/Creatinine Ratio 07/12/2024 023, 10/01/2022, 09/11/2021, Additional history exists COLONOSCOPY-ANNUAL AGES 18-100 08/09/2024 08/09/2023, 11/07/2022, 11/07/2022, Additional history exists GFR 08/15/2024 02/13/2024, 01/03, 01/17/2024, Additional history exists CKD HGB USE SMARTSET 14617 02/17/202502/17, 02/18/2024, 02/13/2024, Additional history exists Lipid [...] this encounter Medical Devices Implanted Type Area Access Coordinator Device Identifier Shelf Expiration Date Model / Serial / Lot Clareon Iol Aspheric Hydrophobic Acrylic Iol Implanted:Qty: 1 on 04/23/2023 by Cody Gonzalez DO at [facility] Lens Left: Eye 11/12/2025 CNA0T0 / [id number] / Viatorr Tips Endoprosthesis 8-10 Mm X 8cm / 2cm Implanted:Qty: 1 on 10/07/2020 by Go Alvarado MD at [facility] Right: Abdomen 03/03/2023 [id number] / / [id number] Description:Viatorr TIPS End oprosthesis 8-10 mm x 8cm / 2cm, Manufactored by [employer] Syr Pf 2ml Embospheres 100-300 - [id number] Implanted:Qty: 1 on 04/18/2021 by Kevin Lim DO at [facility] Left: Abdomen [employer] [id number] 11/25/2023 S220GH / / [id number] Lipiodol Injection - [id number] Implanted:Qty: 1 on 03/28/2022 at [facility] [employer] 03/01/2023 [id number] 01-2 / / [id number] Syr Pf 2ml [facility] 100-300 - [id number] Implanted:Qty: 1 on 03/28/2022 at [facility] [employer] [id number] 08/31/2024 S220GH / / [id number] -[id number] Clareon Iol Aspheric Hydrophobic Acrylic Iol Implanted:Qty: 1 on 04/02/2023 by Cody Gonzalez DO at [facility] Right: Eye JAZMIN 11/12/2025 CNA0T0 / [id number] / documented as of this encounter Visit Diagnoses Diagnosis Iron deficiency anemia, unspecified iron deficiency anemia type- Primary documented in this encounter Advance Directives Documents on File Type Date Recorded Patient Checkering Machine Adjuster Expl anation Advance Directives and Living Will 12/11/2022 ADVANCE DIRECTIVE / LIVING WILL LIVING WILL Power of Childcare Teacher 12/11/2022 POWER OF A TTORNEY Latest [...] the patient have Health Care Power of Childcare Teacher? No Care Teams Rv Detailer Relationship Specialty Start Date End Date rFancisco Cisse MD [address] [place] [address] PCP - General Internal Medicine 09/04/21 documented as of this encounter
--- OUTSIDE RECORDS SUMMARY | 2024-02-20 15:24 | External Medical Summary | Summary of Care ---
Author Name Unknown Organization [facility] Address [address] [place] [place] [address] Phone [phone] Care Team Providers Care Imcu Specialist Name Role Phone Francisco Cisse MD Primary Care Provider + Reason for Visit * Reason Onset Date Comments Test Results Lab 02/18/2024 Encounter Details Date Type Department Care Team (Late st Contact Info) Description 02/18/2024 Telephone Hematology/Oncology [facility] 200 [facility] [address] Ayaka Tatum CRNP 400 [facility] [place] [address] Test Results Lab Allergies No [...] mRNA, LNP-s, No Pre serve, 2-Dose Series (Ovalis) 03/08/2021,02/15/2021 HepA Inact/HepB Recomb>=18yrs old 12/04/2019,04/2019,05/20/2019 11/19/2019 [...] in scheduling 1 unit PRBC transfusion at [facility]. With T&S please fax order for patient to have ferritin and iron screen drawn prior to transfusion. Orders placed. Repeat CBCd in one week. documented in this encounter Plan of Treatment Upcoming Encounters Date Type Department Care Team (Late st Contact Info) Description 02/24/2024 10:45 AM EDT Imaging Radiology [address] [place] [address] 03/03/2024 8:40 AM EDT Laboratory Lab Mobile Phlebotomy [facility] [address] [facility] [place] [address] [facility] Mobile Home Draw [address] [place] [address] 03/13/2024 2:00 PM EDT Office Visit Dermatology [facility] [address] [facility] [place] [address] Francisco Watson MD 200 [facility] [place] [address] 03/17/2024 8:40 AM EDT Laboratory Lab Mobile Phlebotomy [facility] [address] [place] [address] [facility] Mobile Home Draw [address] [place] [address] 03/18/2024 11:00 AM EDT Office Visit Urology, [facility] 132 [facility] [place] [address] Frank Peraza MD [address] [place] [address] 03/24/2024 2:30 PM EDT Office Visit Hematology/Oncology [facility] 200 [facility] [place] [phone] Ayaka Tatum, POULTRY DRESSING WORKER [address] [place] [address] 03/30/2024 12:00 PM EDT Office Visit Family Practice [facility] [place] [address] Kristen Vences, 132 [facility] [place] [address] 03/31/2024 8:40 AM EDT Laboratory Lab Mobile Phlebotomy [facility] [address] [place] [address] [facility] Mobile Home Draw [address] [place] [address] 04/07/2024 10:00 AM EDT Office Visit Gastroenterology, [facility] [address] [place] [address] Lamar Tatum CRNP [address] [place] [address] 04/14/2024 8:40 AM EDT Laboratory Lab Mobile Phlebotomy [facility] [address] [place] [address] [facility] Mobile Home Draw [address] [place] [address] 04/28/2024 8:40 AM EDT Laboratory Lab Mobile Phlebotomy [facility] [address] [place] [address] [facility] Mobile Home Draw [address] [place] [address] 05/12/2024 8:40 AM EDT Laboratory Lab Mobile Phlebotomy [facility] [address] [place] [address] [facility] Mobile Home Draw [address] [place] [address] 05/26/2024 8:40 AM EDT Laboratory Lab Mobile Phlebotomy [facility] [address] [place] [address] [facility] Mobile Home Draw [address] [place] [address] 06/09/2024 8:40 AM EDT Laboratory Lab Mobile Phlebot[facility] [address] [place] [address] [facility] Mobile Home Draw [address] [place] [address] 06/23/2024 8:40 AM EDT Laboratory Lab Mobile Phlebotomy [facility] [address] [place], [place] [address] [facility], [facility] Mobile Home Draw [address] [place] [address] 07/07/2024 8:40 AM EDT Laboratory Lab Mobile Phlebot[facility] [address] [place] [address] [facility] Mobile Home Draw [address] [place] [address] 07/21/2024 8:40 AM EDT Laboratory Lab Mobile Phlebotomy C [address] [place] [address] [facility] Mobile Home Draw [address] [place] [address] 08/04/2024 8:40 AM EDT Laboratory Lab Mobile Phlebotomy [facility] [address] [place] [address] [facility], [facility] Mobile Home Draw [address] [place] [address] 08/18/2024 8:40 AM EDT Laboratory Lab Mobile Phlebotomy [facility] [address] [place] [address] [facility], [facility] Mobile Home Draw [address] [place] [address] 08/20/2024 10:15 AM EDT Office Visit Ophthalmology, [address] [address] Cody Gonzalez, DO [address] [place] [address] 09/01/2024 8:40 AM EDT Laboratory Lab Mobile Phlebotomy [facility] [address] [place] [address] [facility] Mobile Home Draw [address] [place] [address] 09/15/2024 8:40 AM EDT Laboratory Lab Mobile Phlebotomy [facility] [address] [place] [address] [facility] Mobile Home Draw [address] [place] [address] Scheduled Orders Name Type Priority Associated Diagnoses [...] Additional history exists CKD PHOS USE SMARTSET 06236 01/28/202401/03, 07/26/2022, 12/05/2021, Additional history exists Diabetic Foot Exam 03/06/2024 03/06/2023, 0 01/03/2022, 03/02/2021, Additional history exists HbA1c 05/28/2024 11/27/2023, 05/03, 01/28/2023, Additional history exists Albumin/Creatinine Ratio 07/12/2024 023, 10/01/2022, 09/11/2021, Additional history exists COLONOSCOPY-ANNUAL AGES 18-100 08/09/2024 08/09/2023, 11/07/2022, 11/07/2022, Additional history exists GFR 08/15/2024 02/13/2024, 01/03, 01/17/2024, Additional history exists CKD HGB USE SMARTSET 08902 02/17/202502/17, 02/18/2024, 02/13/2024, Additional history exists Lipid [...] this encounter Medical Devices Implanted Type Area Special Order Jeweler Device Identifier Shelf Expiration Date Model / Serial / Lot Clareon Iol Aspheric Hydrophobic Acrylic Iol Implanted:Qty: 1 on 04/23/2023 by Cody Gonzalez DO at [facility] Lens Left: Eye 11/12/2025 CNA0T0 / [id number] / Viatorr Tips Endoprosthesis 8-10 Mm X 8cm / 2cm Implanted:Qty: 1 on 10/07/2020 by Go Alvarado MD at [facility] Right: Abdomen 03/03/2023 [id number] / / [id number] Description:Viatorr TIPS End oprosthesis 8-10 mm x 8cm / 2cm, Manufactored by [employer] Syr Pf 2ml Embospheres 100-300 - [id number] Implanted:Qty: 1 on 04/18/2021 by Kevin Lim DO at [facility] Left: Abdomen [employer] [id number] 11/25/2023 S220GH / / [id number] Lipiodol Injection - [id number] Implanted:Qty: 1 on 03/28/2022 at [facility] [employer] 03/01/2023 [id number] 01-2 / [id number] Syr Pf 2ml Embospheres 100-300 - [id number] Implanted:Qty: 1 on 03/28/2022 at [facility] [employer] [id number] 08/31/2024 S220GH / / [id number] -[id number] Clareon Iol Aspheric Hydrophobic Acrylic Iol Implanted:Qty: 1 on 04/02/2023 by Cody Gonzalez DO at [facility] Right: Eye JAZMIN 11/12/2025 CNA0T0 / [id number] / documented as of this encounter Visit Diagnoses Diagnosis Iron deficiency anemia, unspecified iron deficiency anemia type- Primary documented in this encounter Advance Directives Documents on File Type Date Recorded Patient Travel Attendants Expl anation Advance Directives and Living Will 12/11/2022 ADVANCE DIRECTIVE / LIVING WILL LIVING WILL Power of Contact Lens Lathe Operator 12/11/2022 POWER OF A TTORNEY [...] the patient have Health Care Power of Contact Lens Lathe Operator? No Care Teams Imcu Specialist Relationship Specialty Start Date End Date Francisco Cisse MD 200 [place] [address] PCP - General Internal Medicine 09/04/21 documented as of this encounter
--- OUTSIDE RECORDS SUMMARY | 2024-02-20 15:24 | External Medical Summary ---
Author Name Unknown Address Unknown Organization K0G:[facility] [address] [place] [address] Laboratory Report Ordering Provider Test Date Status NEELAM RICCI 02/18/2024 12:00:00 Final Observation Date Value Abnormality Reference (Units ) Status WBC, Total 02/18/2024 12:00:00 4.58 4.00-10.8 0 (K/uL) Final RBC 02/18/2024 12:00:00 2.16 4.50-5.25 (M/uL) Final Hemoglobin 02/18/2024 12:00:00 7.0 Below low normal 14 .0-16.8 (g/dL) Final HCT 02/18/2024 12:00:00 22.0 Below low normal 40. 0-48.4 (%) Final MCV 02/18/2024 12:00:00 101.9 82.0-99.5 (fL) Final MCH 02/18/2024 12:00:00 32.4 27.0-34.0 (pg) Final MCHC 02/18/2024 12:00:00 31.8 32.0-36.0 (g/dL) Final RDW 02/18/2024 12:00:00 20.6 11.5-15.5 (%) Final Platelets 02/18/2024 12:00:00 130 Below low normal 140 -400 (K/uL) Final MPV 02/18/2024 12:00:00 11.3 6.6-11.1 ( fL) Final Performing Location [facility] [address] [place] [address]
--- OUTSIDE RECORDS SUMMARY | 2024-02-20 15:24 | External Medical Summary | Summary of Care ---
Author Name Unknown Organization [facility] Address [address] [facility] [place] [address] Phone [phone] Care Team Providers Care Director Of Casework Department Name Role Phone Francisco Cisse MD Primary Care Provider + Reason for Visit * Reason Comments Infusion Monoferric * Episode Based Medications (Routine) - Authorized Specialty Diagnoses / Procedures Referred By Chacho t Referred To Contact Diagnoses Iron deficiency anemia, unspecified iron deficiency anemia type GAVE (gastric antral vascular ectasia) Procedures MA INJ. FE DERISOMALTOSE 10 MG Ayaka Tatum CRNP [address] [place] [address] Anc Hem/Onc [address] [place] [address] Referral ID Status Reason Start Date Expiration Date V isits Requested Visits Authorized [id number] Authorized 01/20/2024 12/01/[phone] Encounter Details Date Type Department Care Team (Latest Contact Info) Description 01/29/2024 10:30 AM EST Hem/Onc Treatment Hematology/Oncology Treatment, [address] [address] Pattie Chair 11 Hem Onc [address] [address] Iron deficiency anemia, unspecified iron [...] mRNA, LNP-s, No Pre serve, 2-Dose Series (Tivity) 03/08/2021,02/15/2021 HepA Inact/HepB Recomb>=18yrs old 12/04/2019,04/2019,05/20/2019 11/19/2019 PPD 06/18/2017, 3,01/09/2012,06/2011 Pneumococcal Conjugate Vacc, 13 Valent (Prevnar) 05/01/2017 Pneumococcal Polysaccharide PPV23 (Pneumovax) 08/28/2022,10/25/2015,07/14/2012 Season Influenza, Quad, PF, Adjuvanted, 65+ Yrs, IM (FLUAD) 10/07/2020(Deferred: Patient Refused - pt says he already had his shot last month at [facility] Handy Lyons and Mckinley Cobian [...] 8:40 AM EDT Laboratory Lab Mobile Phlebotomy [facility] [address] [place] [address] [facility] Draw [address] [place] [address] 02/24/2024 10:45 AM EDT Imaging Radiology [address], [place] [address] [place] [address] 03/03/2024 8:40 AM EDT Laboratory Lab Mobile Phlebotomy [facility] [address] [place] [address] [facility] Mobile Home Draw [address] [place] [address] 03/13/2024 2:00 PM EDT Office Visit Dermatology [facility] [address] [facility] [place] [address] Francisco Watson MD [address] [facility] [place] [address] 03/17/2024 8:40 AM EDT Laboratory Lab Mobile Phlebotomy [facility] [address] [place] [address] [facility] Mobile Home Draw [address] [place] [address] 03/24/2024 2:30 PM EDT Office Visit Hematology/Oncology [facility] [address] [facility] [place] [phone] Ayaka Tatum CRNP [address] [place] [address] 03/30/2024 12:00 PM EDT Office Visit Family Practice [facility] [address] [place] [address] Kristen Vences DO [address] [place] [address] 03/31/2024 8:40 AM EDT Laboratory Lab Mobile Phlebotomy [facility] [address] [place] [address] [facility], G[facility] Mobile Home Draw [address] [place] [address] 04/07/2024 10:00 AM EDT Office Visit Gastroenterology, [facility] [address] [place] [address] Lamar Tatum CRNP [address] [place] [address] 04/14/2024 8:40 AM EDT Laboratory Lab Mobile Phlebotomy [facility] [address] [place] [address] [facility], [facility] Mobile Home Draw [address] [place] [address] 04/28/2024 8:40 AM EDT Laboratory Lab Mobile Phlebotomy [facility] [address] [place] [address] [facility], [facility] Mobile Home Draw [address] [place] [address] 05/12/2024 8:40 AM EDT Laboratory Lab Mobile Phlebotomy [facility] [address] [place] [address] [facility], [facility] Mobile Home Draw [address] [place] [address] 05/26/2024 8:40 AM EDT Laboratory Lab Mobile Phlebotomy [facility] [address] [place] [address] [facility], [facility] Mobile Home Draw [address] [place] [address] 06/09/2024 8:40 AM EDT Laboratory Lab Mobile Phlebotomy [facility] [address] [place] [address] [facility], [facility] Mobile Home Draw [address] [place] [address] 06/23/2024 8:40 AM EDT Laboratory Lab Mobile Phlebotomy [facility] [address] [place] [address] [facility], [facility] Mobile Home Draw [address] [place] [address] 07/07/2024 8:40 AM EDT Laboratory Lab Mobile Phlebotomy [facility] [address] [place] [address] [facility], [facility] Draw [address] [place] [address] 07/21/2024 8:40 AM EDT Laboratory Lab Mobile Phlebotomy [facility] [address] [place] [address] [facility], [facility] Draw [address] [place] [address] 08/04/2024 8:40 AM EDT Laboratory Lab Mobile Phlebotomy [facility] [address] [place] [address] [facility], [facility] Home Draw [address] [place] [address] 08/18/2024 8:40 AM EDT Laboratory Lab Mobile Phlebotomy [facility] [address] [place] [address] [facility], [facility] Mobile Home Draw [address] [place] [address] 08/20/2024 10:15 AM EDT Office Visit Ophthalmology, [facility] [address] [place] [facility] [address] Cody Gonzalez DO [address] [place] [address] 09/01/2024 8:40 AM EDT Laboratory Lab Mobile Phlebotomy [facility] [address] [place] [address] [facility] Mobile Home Draw [address] [place] [address] 09/15/2024 8:40 AM EDT Laboratory Lab Mobile Phlebotomy [facility] [address] [place] [address] [facility] Mobile Home Draw [address] [place] [address] Scheduled Procedures Name Priority Associated Diagnoses Date/Ti [...] Additional history exists CKD PHOS USE SMARTSET 83031 01/28/202401/03, 07/26/2022, 12/05/2021, Additional history exists Diabetic Foot Exam 03/06/2024 03/06/2023, 0 01/03/2022, 03/02/2021, Additional history exists HbA1c 05/28/2024 11/27/2023, 05/03, 01/28/2023, Additional history exists Albumin/Creatinine Ratio 07/12/2024 023, 10/01/2022, 09/11/2021, Additional history exists COLONOSCOPY-ANNUAL AGES 18-100 08/09/2024 08/09/2023, 11/07/2022, 11/07/2022, Additional history exists GFR 08/15/2024 02/13/2024, 01/03, 01/17/2024, Additional history exists CKD HGB USE SMARTSET 83279 02/12/202502/12, 02/13/2024, 01/30/2024, Additional history exists Lipid [...] this encounter Medical Devices Implanted Type Area Management Consulting Device Identifier Shelf Expiration Date Model / Serial / Lot Clareon Iol Aspheric Hydrophobic Acrylic Iol Implanted:Qty: 1 on 04/23/2023 by Cody Gonzalez DO at [facility] Lens Left: Eye 11/12/2025 CNA0T0 / [id number] / Viatorr Tips Endoprosthesis 8-10 Mm X 8cm / 2cm Implanted:Qty: 1 on 10/07/2020 by Go Alvarado MD at [facility] Right: Abdomen 03/03/2023 [id number] / / [id number] Description:Viatorr TIPS End oprosthesis 8-10 mm x 8cm / 2cm, Manufactored by [employer] Syr Pf 2ml Embospheres 100-300 - [id number] Implanted:Qty: 1 on 04/18/2021 by Kevin Lim DO at [facility] Left: Abdomen [employer] [id number] 11/25/2023 [facility] / / [id number] Lipiodol Injection - [id number] Implanted:Qty: 1 on 03/28/2022 at [facility] [employer] 03/01/2023 34057-30 - [id number] Syr Pf 2ml Embospheres 100-300 - [id number] Implanted:Qty: 1 on 03/28/2022 at [facility] [employer] [id number] 08/31/2024 S220 / / [id number] -[id number] Clareon Iol Aspheric Hydrophobic Acrylic Iol Implanted:Qty: 1 on 04/02/2023 by Cody Gonzalez DO at [facility] Right: Eye JAZMIN 11/12/2025 CNA0T0 / [id number] / documented as of this encounter Visit Diagnoses Diagnosis Iron deficiency anemia, unspecified iron deficiency anemia type- Primary GAVE (gastric antral vascular ectasia) Angiodysplasia of stomach and duodenum (without mention of hemorrhage) documented in this encounter Administered Medications Inactive [...] 10:23 AM EST 1,000 mg 500 mL/hr NSS infusion Intravenous, at 50 mL/hr, PRN, Starting on Sat01/29/24 at 1130, Until 01/29/24 at 1557, Maintenance line Start Infusion 01/29/2024 10:23 AM EST 50 mL/hr documented in this encounter Advance Directives Documents on File Type Date Recorded 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 No Care Teams Director Of Casework Department Relationship Specialty Start Date End Date Francisco Cisse MD [address] [place] [address] PCP - General Internal Medicine 09/04/21 documented as of this encounter
--- OUTSIDE RECORDS SUMMARY | 2024-02-20 15:24 | External Medical Summary | Summary of Care ---
Author Name Unknown Organization [facility] Address [address] [place] [address] Phone [phone] Care Team Providers Care Plastic Sheets Finishing Supervisor Name Role Phone Francisco Cisse MD Primary Care Provider + Reason for Visit * Reason Onset Date Comments Test Results Lab 02/18/2024 Encounter Details Date Type Department Care Team (Late st Contact Info) Description 02/18/2024 Telephone Hematology/Oncology [facility] 200 [facility] [address] Ayaka Tatum CRNP [address] [facility] [address] [address] Test Results Lab Allergies No [...] mRNA, LNP-s, No Pre serve, 2-Dose Series ([employer]) 03/08/2021,02/15/2021 HepA Inact/HepB Recomb>=18yrs old 12/04/2019,04/2019,05/20/2019 11/19/2019 PPD 06/18/2017, 3,01/09/2012,06/2011 Pneumococcal Conjugate Vacc, 13 Valent (Prevnar) 05/01/2017 Pneumococcal Polysaccharide PPV23 (Pneumovax) 08/28/2022,10/25/2015,07/14/2012 Season Influenza, Quad, PF, Adjuvanted, 65+ Yrs, IM (FLUAD) 10/07/2020(Deferred: Patient Refused - pt says he already had his shot last month at [facility] Handy Lyons and Mckinley Cobian made [...] Description 02/24/2024 10:45 AM EDT Imaging Radiology [address] [place] [address] 03/03/2024 8:40 AM EDT Laboratory Lab Mobile Phlebotomy [facility] [address] [facility] [place] [address] [facility], [facility] Mobile Home Draw [address] [place] [address] 03/13/2024 2:00 PM EDT Office Visit Dermatology [facility] 200 [facility] [place] [address] Francisco Watson MD 200 [facility] [place] [address] 03/17/2024 8:40 AM EDT Laboratory Lab Mobile Phlebotomy [facility] [address] [place] [address] [facility], [facility] Mobile Home Draw [address] [place] [address] 03/18/2024 11:00 AM EDT Office Visit Urology, [facility] [address] [place] [address] Frank Peraza MD [address] [place] [address] 03/24/2024 2:30 PM EDT Office Visit Hematology/Oncology [facility] 200 [facility] [place] [address] Ayaka Tatum, REHAB TECH [address] [place] [address] 03/30/2024 12:00 PM EDT Office Visit Family Practice [facility] [address] [facility] [place] [address] Kristen Vences, 132 [facility] [place] [address] 03/31/2024 8:40 AM EDT Laboratory Lab Mobile Phlebotomy [facility] [address] [place] [address] [facility], [facility] Mobile Home Draw [address] [place] [address] 04/07/2024 10:00 AM EDT Office Visit Gastroenterology, [facility] [address] [place] [address] Lamar Tatum CRNP [address] [place] [address] 04/14/2024 8:40 AM EDT Laboratory Lab Mobile Phlebotomy [facility] [address] [place] [address] [facility], [facility] Mobile Home Draw [address] [place] [address] 04/28/2024 8:40 AM EDT Laboratory Lab Mobile Phlebotomy [facility] [address] [place] [address] [facility], [facility] Mobile Home Draw [address] [place] [address] 05/12/2024 8:40 AM EDT Laboratory Lab Mobile Phlebotomy [facility] [address] [place] [address] [facility], [facility] Mobile Home Draw [address] [place] [address] 05/26/2024 8:40 AM EDT Laboratory Lab Mobile Phlebotomy [facility] [address] [place] [address] [facility], [facility] Mobile Home Draw [address] [place] [address] 06/09/2024 8:40 AM EDT Laboratory Lab Mobile Phlebotomy [facility] [address] [place] [address] [facility], [facility] Mobile Home Draw [address] [place] [address] 06/23/2024 8:40 AM EDT Laboratory Lab Mobile Phlebotomy [facility] [address] [place], [place] [address] [facility], [facility] Mobile Home Draw [address] [place] [address] 07/07/2024 8:40 AM EDT Laboratory Lab Mobile Phlebotomy [facility] [address] [place] [address] [facility], [facility] Mobile Home Draw [address] [place] [address] 07/21/2024 8:40 AM EDT Laboratory Lab Mobile Phlebotomy C [address] [place] [address] [facility], [facility] Mobile Home Draw [address] [place] [address] 08/04/2024 8:40 AM EDT Laboratory Lab Mobile Phlebotomy [facility] [address] [place] [address] Gmc, Gml Mobile Home Draw [address] [place] [address] 08/18/2024 8:40 AM EDT Laboratory Lab Mobile Phlebotomy [facility] [address] [place] [address] Gmc, Gml Mobile Home Draw [address] [place] [address] 08/20/2024 10:15 AM EDT Office Visit Ophthalmology, [address] [address] Cody Gonzalez, DO [address] [place] [address] 09/01/2024 8:40 AM EDT Laboratory Lab Mobile Phlebotomy [facility] [address] [place] [address] Gmc, Gml Mobile Home Draw [address] [place] [address] 09/15/2024 8:40 AM EDT Laboratory Lab Mobile Phlebotomy [facility] [address] [place] [address] [facility], [facility] Mobile Home Draw [address] [place] [address] Scheduled Orders Name Type Priority Associated Diagnoses [...] Additional history exists CKD PHOS USE SMARTSET 19096 01/28/202401/03, 07/26/2022, 12/05/2021, Additional history exists Diabetic Foot Exam 03/06/2024 03/06/2023, 0 01/03/2022, 03/02/2021, Additional history exists HbA1c 05/28/2024 11/27/2023, 05/03, 01/28/2023, Additional history exists Albumin/Creatinine Ratio 07/12/2024 023, 10/01/2022, 09/11/2021, Additional history exists COLONOSCOPY-ANNUAL AGES 18-100 08/09/2024 08/09/2023, 11/07/2022, 11/07/2022, Additional history exists GFR 08/15/2024 02/13/2024, 01/03, 01/17/2024, Additional history exists CKD HGB USE SMARTSET 52583 02/17/202502/17, 02/18/2024, 02/13/2024, Additional history exists Lipid [...] this encounter Medical Devices Implanted Type Area Hat Designer Device Identifier Shelf Expiration Date Model / Serial / Lot Clareon Iol Aspheric Hydrophobic Acrylic Iol Implanted:Qty: 1 on 04/23/2023 by Cody Gonzalez DO at [facility] Lens Left: Eye 11/12/2025 CNA0T0 / [id number] / Viatorr Tips Endoprosthesis 8-10 Mm X 8cm / 2cm Implanted:Qty: 1 on 10/07/2020 by Go Alvarado MD at [facility] Right: Abdomen 03/03/2023 [id number] / / [id number] Description:Viatorr TIPS End oprosthesis 8-10 mm x 8cm / 2cm, Manufactored by [employer] Syr Pf 2ml Embospheres 100-300 - [id number] Implanted:Qty: 1 on 04/18/2021 by Kevin Lim DO at [facility] Left: Abdomen [employer] [id number] 11/25/2023 S220GH / / [id number] Lipiodol Injection - [id number] Implanted:Qty: 1 on 03/28/2022 at [facility] [employer] 03/01/2023 59985-33 01-2 / [id number] Syr Pf 2ml Embospheres 100-300 - [id number] Implanted:Qty: 1 on 03/28/2022 at [facility] [employer] [id number] 08/31/2024 S220GH / / [id number] -5 Clareon Iol Aspheric Hydrophobic Acrylic Iol Implanted:Qty: 1 on 04/02/2023 by Cody Gonzalez DO at [facility] Right: Eye JAZMIN 11/12/2025 CNA0T0 / [id number] / documented as of this encounter Visit Diagnoses Diagnosis Iron deficiency anemia, unspecified iron deficiency anemia type- Primary documented in this encounter Advance Directives Documents on File Type Date Recorded 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 No Care Teams Plastic Sheets Finishing Supervisor Relationship Specialty Start Date End Date Francisco Cisse MD 200 [place] [address] PCP - General Internal Medicine 09/04/21 documented as of this encounter
--- OUTSIDE RECORDS SUMMARY | 2024-02-20 15:25 | External Medical Summary | Summary of Care ---
Author Name Unknown Organization [facility] Address [address] [place] [address] Phone [phone] Care Team Providers Care Preparer Name Role Phone Francisco Cisse MD Primary Care Provider + Reason for Visit * Reason Comments Hematuria * Auth/Cert Specialty Diagnoses / Procedures Referred By Chacho t Referred To Contact [facility] [address] [place] [address] Phone: [phone] Emergency Medicine [facility] [address] [place] [address] Referral ID Status Reason Start Date Expiration Date Visits Re quested Visits Authorized [id number] Encounter Details Date Type Department Care Team (Late st Contact Info) Description 02/13/2024 1:07 PM EDT - 02/13/2024 3:19 PM EDT Emergency [facility] Emergency Department ([facility]) [address] [place] [address] Erich Hernández, DO [address] [place] [address] [address] (Primary Dx); Hematuria, unspecified type; Urethritis Discharge Disposition: Home - Self Care Allergies [...] his shot last month at [facility] Handy Lyons and Mckinley Cobian [...] Sign Reading Time Taken Comments Blood Pressure 140/59 02/13/2024 3:00 PM EDT Pulse 61 02/13/2024 3:00 PM EDT Temperature 36.7 C (98.1 F) 02/13/2024 11:02 AM E DT Respiratory Rate 18 02/13/2024 3:00 PM EDT Oxygen Saturation 96% 02/13/2024 11:02 AM EDT Inhaled Oxygen Concentration - - Weight 81.6 kg (180 lb) 02/13/2024 11:02 AM EDT Height 177.8 cm (5' 10") 02/13/2024 11:02 AM EDT Body Mass Index 25.83 02/13/2024 11:02 AM EDT documented in this encounter Functional [...] of this encounter Discharge Instructions * Discharge Instructions* Erich Hernández DO - 02/13/2024 3:02 PM EDT You were seen in the emergency department today for evaluation of penile pain. You were given some lidocaine gel to be used as needed for discomfort. Please continue to follow-up with Urology tomorrow for outpatient re-evaluation. Your welcome to return emergency department at any time, and should return if you have dysfunction of the catheter that is not resolved with flushing, or develop any other new or concerning symptoms. documented in this encounter ED Notes * Erich Hernández DO - 02/13/2024 1:40 PM EDT HISTORY OF PRESENT ILLNESS Luis Hale is a 73 year old male who presents to the ED for evaluation of Hematuria. The patient was seen at 02/13/24 1316. See HPI in ED course, ROS as per HPI, systems reviewed and otherwise negative. The patient's allergies, past history, and medications were reviewed. PHYSICAL EXAM Initial Vitals (see all): BP 131/54 | Pulse 76 | Resp 20 | Temp 98.1 | O2 96 %Weight 81.65 kg | Height 177.8 cm | BMI 25.83 kg/m2 Initial Pain Assessment (see all): 3 (mild pain)/10 ([facility] Adult Scale 0-10) GENERAL: Alert, well developed, well nourished, no acute distress HEAD: Normocephalic, atraumatic EYES: EOM's intact, sclera anicteric, conjunctiva clear OROPHARYNX: Airway patent and mucous membranes moist LUNGS: No respiratory distress, normal respiratory rate and effort HEART: Well perfused, regular rate ABDOMEN: Abdomen non-distended, nontender, no rebound or guarding SKIN: Pale, dry EXTREMITIES: No gross deformities, no edema NEURO: Alert, oriented x3, appropriate for age, moves all four extremities, normal speech PROCEDURES AND TREATMENTS ED Orders | ED Results MEDICAL DECISION MAKING Nursing notes and vital signs were reviewed. ED Course as of 02/13/24 1504 Sharon Feb 13, 2024 1339 HPI - patient is a 73-year-old male presenting to the emergency department for evaluation of intermittent Mendoza catheter clotting resolved with irrigation, and hematuria. Patient states that he procedure performed by Urology, and has been having intermittent issues since that time. Has Urologyfollow-up in clinic tomorrow. He denies any fevers, chills, cold symptoms, chest pain, shortness of breath, abdominal pain. He does have some leakage around the Mendoza, and states that the tip of his penis leone especially when he has to go to the bathroom. [RP] 8928 MDM -73-year-old male with cystoscopy and instrumentation on with Urology presenting forhematuria and intermittent blockage of Mendoza catheter. Vital signs at presentation without tachycardia or hypotension. Patient does have bloody output in the bag. Point of care ultrasound does not show any large clot burden, or retained urine. Discussed with patient the option to replace the catheter with a 3 way and undergo continuous bladder irrigation. The son inpatient with some concern as they are concerned that he will not be able to get a new Mendoza inserted due to swelling at the tip of his penis as they were worried about this at [facility]. At this time they would like to elect to have symptomatic treatment with lidocaine at the tip penis. Patient is a liver transplant candidate. Due to hematuria will double check CBC, CMP, and INR. [RP] 1422 WBC: 7.50 [RP] 1422 HGB(!): 8.5 stable [RP] 1422 PLT(!): 119 [RP] 1433 INR(!): 1.3 [RP] 1433 Comprehensive Metabolic Panel(!) Metabolic panel grossly at baseline [RP] 1500 Patient re-evaluated and feeling better after getting lidocaine. Prefers discharge to follow-up with Urology tomorrow. On re-evaluation the patient was found to be stable for discharge home with appropriate follow-up and return precautions. Continue care at home, return if they have any difficulty with flushing, Mendoza dysfunction, or develops any other new or concerning symptoms. Plan was reviewed with patient and the patient agreed to plan at time of discharge. Return precautions were reviewed. Questions were sought and answered. Vitals were reviewed and were stable at the time of discharge. [RP] ED Course User Index [RP] Erich Hernández DO Differential Diagnoses Based on my history, physical exam, and evaluation, the differential includes, but is not limited, to the following diagnoses: Mendoza catheter blockage, hematuria, blood loss anemia, urethritis. See ED course as above. Amount and/or Complexity of Data Reviewed Labs: ordered. Decision-making details documented in ED Course. Risk Prescription drug management. Clinical Impressions Mendoza catheter in place Hematuria, unspecified type Urethritis Disposition Discharged. The patient's condition at disposition was: stable. Erich Hernández * Lorie Marshall RN - 02/13/2024 11:03 AM EDT Pt comes in complaining of increased pain to his genital area and blood clots in his mendoza catheter. Reports having a procedure done on and has been having blood clots since then. States the pain has gotten worse. Is scheduled for a urology appointment tomorrow. documented in this encounter Miscellaneous Notes * ED Recreation Program Specialist Note - Azul Montelongo RN - 02/13/2024 3:17 PM EDT Pt discharge instructions and follow up reviewed with pt son and son verbalized understanding. * ED Recreation Program Specialist Note - Azul Montelongo RN - 02/13/2024 2:17 PM EDT 1405 lidocaine gel applied around end of penis as ordered for discomfort. documented in this encounter Plan of Treatment Upcoming Encounters Date Type Department Care Team (Late st Contact Info) Description 02/14/2024 2:45 PM EDT Office Visit Urology [place] [address] [place] [address] Frank Peraza MD [address] [place] [address] 02/17/2024 8:00 AM EDT Office Visit [facility] [address] [place] [address] Chavez Sapp MD [address] [place] [address] 02/18/2024 8:40 AM EDT Laboratory Lab Mobile Phlebotomy [facility] [address] [place] [address] [facility] Mobile [facility] Draw [address] [place] [address] 02/24/2024 10:45 AM EDT Imaging Radiology [address] [place] [address] 03/03/2024 8:40 AM EDT Laboratory Lab Mobile Phlebotomy [facility] [address] [place] [address] [facility], l Mobile Home Draw [address] [place] [address] 03/13/2024 2:00 PM EDT Office Visit Dermatology [facility] [address] [place] [address] Francisco Watson MD [address] [place] [address] 03/17/2024 8:40 AM EDT Laboratory Lab Mobile Phlebotomy [facility] [address] [place] [address] [facility] Mobile [facility] Draw [address] [place] [address] 03/24/2024 2:30 PM EDT Office Visit Hematology/Oncology [facility] [address] [place] [id number] Ayaka Tatum CRNP [address] [facility] [place] [address] 03/30/2024 12:00 PM EDT Office Visit Family Practice [facility] [address] [place] [address] Kristen Vences DO [address] [place] [address] 03/31/2024 8:40 AM EDT Laboratory Lab Mobile Phlebotomy [facility] [address] [place] [address] [facility], l Mobile Home Draw [address] [place] [address] 04/07/2024 10:00 AM EDT Office Visit Gastroenterology, [facility] [address] [place] [address] Lamar Tatum CRNP [address] [place] [address] 04/14/2024 8:40 AM EDT Laboratory Lab Mobile Phlebotomy [facility] [address] [place] [address] [facility], [facility] Mobile Home Draw [address] [place] [address] 04/28/2024 8:40 AM EDT Laboratory Lab Mobile Phlebotomy [facility] [address] [place] [address] [facility], [facility] Mobile Home Draw [address] [place] [address] 05/12/2024 8:40 AM EDT Laboratory Lab Mobile Phlebotomy [facility] [address] [place] [address] [facility] Draw [address] [place] [address] 05/26/2024 8:40 AM EDT Laboratory Lab Mobile Phlebotomy [facility] [address] [place] [address] [facility] [address] [place] [address] 06/09/2024 8:40 AM EDT Laboratory Lab Mobile Phlebotomy [facility] [address] [place] [address] [facility] [address] [place] [address] 06/23/2024 8:40 AM EDT Laboratory Lab Mobile Phlebotomy [facility] [address] [place] [address] [facility] [address] [place] [address] 07/07/2024 8:40 AM EDT Laboratory Lab Mobile Phlebotomy [facility] [address] [place] [address] [facility] [address] [place] [address] 07/21/2024 8:40 AM EDT Laboratory Lab Mobile Phlebotomy [facility] [address] [place] [address] [facility] [address] [place] [address] 08/04/2024 8:40 AM EDT Laboratory Lab Mobile Phle[facility] [address] [place] [address] [facility] [address] [place] [address] 08/18/2024 8:40 AM EDT Laboratory Lab Mobile Phlebotomy [facility] [address] [place] [address] [facility], [facility] Mobile Home Draw [address] [place] [address] 08/20/2024 10:15 AM EDT Office Visit Ophthalmology, [facility] [address] [place] [address] Cody Gonzalez DO [address] [place] [address] 09/01/2024 8:40 AM EDT Laboratory Lab Mobile Phlebotomy [facility] [address] [place] [address] [facility], [facility] Mobile Home Draw [address] [place] [address] 09/15/2024 8:40 AM EDT Laboratory Lab Mobile Phlebotomy [facility] [address] [place] [address] [facility], [facility] Mobile Home Draw [address] [place] [address] Scheduled Procedures Name Priority Associated Diagnoses Date/Ti [...] Additional history exists CKD PHOS USE SMARTSET 89004 01/28/202401/03, 07/26/2022, 12/05/2021, Additional history exists Diabetic Foot Exam 03/06/2024 03/06/2023, 0 01/03/2022, 03/02/2021, Additional history exists HbA1c 05/28/2024 11/27/2023, 05/03, 01/28/2023, Additional history exists Albumin/Creatinine Ratio 07/12/2024 023, 10/01/2022, 09/11/2021, Additional history exists COLONOSCOPY-ANNUAL AGES 18-100 08/09/2024 08/09/2023, 11/07/2022, 11/07/2022, Additional history exists GFR 08/15/2024 02/13/2024, 01/03, 01/17/2024, Additional history exists CKD HGB USE SMARTSET 84900 02/12/202502/12, 02/13/2024, 01/30/2024, Additional history exists Lipid [...] this encounter Medical Devices Implanted Type Area Stove Installer Device Identifier Shelf Expiration Date Model / Serial / Lot Clareon Iol Aspheric Hydrophobic Acrylic Iol Implanted:Qty: 1 on 04/23/2023 by Cody Gonzalez DO at OR [facility] Lens Left: Eye 11/12/2025 [id number] / [id number] / Viatorr Tips Endoprosthesis 8-10 Mm X 8cm / 2cm Implanted:Qty: 1 on 10/07/2020 by Go Alvarado MD at [facility] Right: Abdomen 03/03/2023 [id number] / / [id number] Description:Viatorr TIPS End oprosthesis 8-10 mm x 8cm / 2cm, Manufactored by [employer] Syr Pf 2ml Embospheres 100-300 - [id number] Implanted:Qty: 1 on 04/18/2021 by Kevin Lim DO at OR [facility] Left: Abdomen [employer] [id number] 11/25/2023 [id number] / / [id number] Lipiodol Injection - [id number] Implanted:Qty: 1 on 03/28/2022 at [facility] [employer] 03/01/2023 [id number] 01-2 / / [id number] Syr Pf 2ml Embospheres 100-300 - [id number] Implanted:Qty: 1 on 03/28/2022 at [facility] [employer] [id number] 08/31/2024 S220GH / / [id number] -5 Clareon Iol Aspheric Hydrophobic Acrylic Iol Implanted:Qty: 1 on 04/02/2023 by Cody Gonzalez DO at OR [facility] Right: Eye JAZMIN 11/12/2025 [id number] / [id number] / documented as of this encounter Procedures Procedure Name Priority Date/Time Associated Diagnosis Comments DIFFERENTIAL, AUTOMATED STAT 02/13/2024 1:48 PM EDT COMPREHENSIVE METABOLIC PANEL STAT 02/13/2024 1:48 PM EDT CBC STAT 02/13/2024 1:48 PM EDT PT INR STAT 02/13/2024 1:48 PM EDT CBC STAT 02/13/2024 1:48 PM EDT EXTRA REYNOLDS TOP Routine 02/13/2024 1:46 PM EDT EXTRA TUBES Routine 02/13/2024 1:46 PM EDT documented in this encounter Results * (ABNORMAL) DIFFERENTIAL, AUTOMATED (02/13/2024 1:48 PM EDT) [facility] WBC 7.50 4.00 - 10.80 K/uL 02/13/2024 2:06 PM EDT LABORATORY [facility] Neutrophils % 80.6(H) 40.0 - 75.0 % 02/13/2024 2:06 PM EDT LABORATORY [facility] Lymphocytes % 11.9(L) 18.0 - 42.0 % 02/13/2024 2:06 PM EDT LABORATORY [facility] Monocytes % 4.4 1.0 - 11.0 % 02/13/2024 2:06 PM EDT LABORATORY [facility] Eosinophils % 2.1 0.0 - 6.0 % 02/13/2024 2:06 PM EDT LABORATORY [facility] Basophils % 0.3 0.0 - 2.0 % 02/13/2024 2:06 PM EDT LABORATORY [facility] Immature Granulocytes % 0.7 0.0 - 2.0 % 02/13/2024 2:06 PM EDT LABORATORY [facility] Absolute Neutrophils 6.05 1.80 - 7.70 K/uL 02/13/2024 2:06 PM EDT LABORATORY [facility] Absolute Lymphocytes 0.89(L) 1.00 - 4.80 K/ul 02/13/2024 2:06 PM EDT LABORATORY [facility] Absolute Monocytes 0.33 0.00 - 1.10 K/uL 02/13/2024 2:06 PM EDT LABORATORY GL Absolute Eosinophils 0.16 0.00 - 0.70 K/uL 02/13/2024 2:06 PM EDT LABORATORY [facility] Absolute Basophils 0.02 0.00 - 0.20 K/uL 02/13/2024 2:06 PM EDT LABORATORY [facility] Absolute Immature Granulocytes 0.05 0.00 - 0.20 K/uL 02/13/2024 2:06 PM EDT LABORATORY GL Blood Venous blood specimen / Unknown Venipuncture / Unknown 02/13/2024 1:48 PM EDT 02/13/2024 1:51 PM EDT Erich Sarthak Betty SANDOVAL LAB BLOOD ORDERAB LES LABORATORY [facility] [address] [place] [address] * (ABNORMAL) CBC (02/13/2024 1:48 PM EDT) [facility] WBC 7.50 4.00 - 10.80 K/uL 02/13/2024 2:06 PM EDT LABORATORY [facility] RBC 2.60 4.50 - 5.25 M/uL 02/13/2024 2:06 PM EDT LABORATORY [facility] HGB 8.5(L) 14.0 - 16.8 g/dL 02/13/2024 2:06 PM EDT LABORATORY [facility] HCT 26.0(L) 40.0 - 48.4 % 02/13/2024 2:06 PM EDT LABORATORY [facility] MCV 100.0 82.0 - 99.5 fL 02/13/2024 2:06 PM EDT LABORATORY [facility] MCH 32.7 27.0 - 34.0 pg 02/13/2024 2:06 PM EDT LABORATORY [facility] MCHC 32.7 32.0 - 36.0 g/dL 02/13/2024 2:06 PM EDT LABORATORY [facility] RDW 21.9 11.5 - 15.5 % 02/13/2024 2:06 PM EDT LABORATORY [facility] PLT 119(L) 140 - 400 K/uL 02/13/2024 2:06 PM EDT LABORATORY [facility] MPV 12.2 6.6 - 11.1 fL 02/13/2024 2:06 PM EDT LABORATORY GL nRBCs 0 <=0 /100 WBCs 02/13/2024 2:06 PM EDT LABORATORY [facility] Blood Venous blood specimen / Unknown Venipuncture / Unknown 02/13/2024 1:48 PM EDT 02/13/2024 1:51 PM EDT Erich Hernández LAB BLOOD ORDERAB LES Performing Organization Address [facility]/ZIP Co de Phone Number LABORATORY [facility] [address] [place] [address] * (ABNORMAL) PT INR (02/13/2024 1:48 PM EDT) Prothrombin Time 16.4(H) 11.6 - 15.2 seconds 02/13/2024 2:28 PM EDT LABORATORY GL INR 1.3(H) 0.8 - 1.2 02/13/2024 2:28 PM EDT LABORATORY GL Blood Venous blood specimen / Unknown Venipuncture / Unknown 02/13/2024 1:48 PM EDT 02/13/2024 1:51 PM EDT Narrative LABORATORY [facility] - 02/13/2024 2:28 PM EDT Warfarin Therapy INR: 2.0-3.0 conventional anticoagulation INR: 2.5-3.5 high intensity anticoagulation [facility] ORDERAB LES Performing Organization Address [facility] Co de Phone Number LABORATORY [address] [address] * (ABNORMAL) COMPREHENSIVE METABOLIC PANEL (02/13/2024 1:48 PM EDT) BUN 26(H) 6 - 20 mg/dL 02/13/2024 2:30 PM EDT LABORATORY GL Creatinine 1.3(H) 0.6 - 1.2 mg/dL 02/13/2024 2:30 PM EDT LABORATORY [facility] Estimated Glomerular Filtration Rate 57(L) >=60 mL/min 02/13/2024 2:30 PM EDT LAB[facility]ATORY [facility] Comment:eGFR is calculated b ased on the CKD-EPI 2020 equation Sodium 139 135 - 146 mmol/L 02/13/2024 2:30 PM EDT LAB[facility]ATORY [facility] Potassium 4.6 3.5 - 5.1 mmol/L 02/13/2024 2:30 PM EDT LAB[facility]ORY [facility] Chloride 110(H) 98 - 107 mmol/L 02/13/2024 2:30 PM EDT LAB[facility]ATORY [facility] CO2 21(L) 22 - 32 mmol/L 02/13/2024 2:30 PM EDT LAB[facility]ATORY [facility] Anion Gap 8 7 - 15 mmol/L 02/13/2024 2:30 PM EDT LAB[facility]ATORY [facility] Glucose 174(H) 70 - 120 mg/dL 02/13/2024 2:30 PM EDT LAB[facility]ATORY [facility] Albumin 2.5(L) 3.8 - 5.0 g/dL 02/13/2024 2:30 PM EDT LAB[facility]ATORY [facility] AST 50 10 - 50 U/L 02/13/2024 2:30 PM EDT LAB[facility]ATORY [facility] Alkaline Phosphatase 297(H) 35 - 130 U/L 02/13/2024 2:30 PM EDT LAB[facility]ATORY [facility] Bilirubin, Total 1.9(H) <=1.2 mg/dL 02/13/2024 2:30 PM EDT LAB[facility]ATORY [facility] Calcium 8.1(L) 8.4 - 10.2 mg/dL 02/13/2024 2:30 PM EDT LAB[facility]ATORY [facility] Protein 5.8(L) 6.0 - 8.3 g/dL 02/13/2024 2:30 PM EDT LAB[facility]ATORY [facility] ALT 33 10 - 50 U/L 02/13/2024 2:30 PM EDT LAB[facility]ATORY [facility] Blood Venous blood specimen / Unknown Venipuncture / Unknown 02/13/2024 1:48 PM EDT 02/13/2024 1:51 PM EDT Erich Serratobenja LAB BLOOD ORDERAB LES Performing Organization Address City/[facility]/ZIP Co de Phone Number LABORATORY [address] [phone] * EXTRA REYNOLDS TOP (02/13/2024 1:46 PM EDT) Blood Venous blood specimen / Unknown Venipuncture / Unknown 02/13/2024 1:46 PM EDT 02/13/2024 1:52 PM EDT Erich Martinmarli Gutierrezjosuebenja LAB BLOOD ORDERAB LES Performing Organization Address City/[facility]/ZIP Co de Phone Number LABORATORY [address] [address] documented in this encounter Visit Diagnoses Diagnosis Mendoza catheter in place- Primary Other postprocedural status Hematuria, unspecified type Urethritis Urethritis, unspecified documented in this encounter Administered Medications Inactive Administered Medications - up to 3 most recent administrations Medication Order MAR Action Action Date Dose Rate Site Lidocaine urethral/mucosal 2 % gel 10 mL Topical, ONCE, 1 dose, On Sharon 02/13/24 at 1415, Apply to tip of penis Given 02/13/2024 2:05 PM EDT 10 mL Lidocaine urethral/mucosal 2 % gel 10 mL Topical, PRN, Starting on Sharon 02/13/24 at 1503, Until Sharon 02/13/24 at 1919, Apply to penis documented in this encounter Active and Recently Administered Medications Times are shown in EDT. Scheduled Medication Order 02/11/2024 02/12/2024 02/13/2024 Lidocaine urethral/mucosal 2 % gel 10 mL (COMPLETED) Topical, ONCE, 1 dose, On Sharon 02/13/24 at 1415, Apply to tip of penis 1405 (Given - Provid er: Azul Montelongo RN - Comment: applied to end of penis) PRN Medication Order 02/11/2024 02/12/2024 02/13/2024 Lidocaine urethral/mucosal 2 % gel 10 mL Topical, PRN, Starting on Sharon 02/13/24 at 1503, Until Sharon 02/13/24 at 1919, Apply to penis documented in this encounter Advance Directives Documents on File Type Date Recorded Patient Technology Coordinator Expl anation Advance Directives and Living Will 12/11/2022 ADVANCE DIRECTIVE / LIVING WILL LIVING WILL Power of Hog Worker 12/11/2022 POWER OF A TTORNEY Latest [...] the patient have Health Care Power of Hog Worker? No Care Teams Preparer Relationship Specialty Start Date End Date Francisco Cisse MD [address] [place] [address] PCP - General Internal Medicine 09/04/21 documented as of this encounter
--- OUTSIDE RECORDS SUMMARY | 2024-02-20 15:25 | External Medical Summary ---
Author Name Unknown Address Unknown Organization K1F:LABORATORY [facility] - [address] [place] [address] Laboratory Report Ordering Provider Test Date Status KENNETH LAGOS 02/13/2024 13:48:00 Final Warfarin Therapy
INR: 2 .0-3.0 conventional anticoagulation
INR: 2.5- 3.5 high intensity anticoagulation Observation Date Value Abnormality Reference (Units ) Status PT 02/13/2024 13:48:00 16.4 Above high normal 11 .6-15.2 (seconds) Final INR 02/13/2024 13:48:00 1.3 Above high normal 0. 8-1.2 Final Performing Location LABORATORY [facility] - [address] [place] [address]
--- OUTSIDE RECORDS SUMMARY | 2024-02-20 15:25 | External Medical Summary ---
Author Name Unknown Address Unknown Organization K1F:LABORATORY [facility] - [address] [facility] [place] [address] Laboratory Report Ordering Provider Test Date Status KENNETH LAGOS 02/13/2024 13:48:00 Final Observation Date Value Abnormality Reference (Units ) Status BUN 02/13/2024 13:48:00 26 Above high normal 6-20 (mg/dL) Final Creatinine 02/13/2024 13:48:00 1.3 Above high normal 0.6-1.2 (mg/dL) Final Glomerular filtration rate/1.73 sq M.predicted [Volume Rate/Area] in Serum, Plasma or Blood by Creatinine-based formula (CKD-EPI) 02/13/2024 13:48:00 57 Below low normal >=60 (mL/min) Final eGFR is calculated based on the CKD-EPI 2020 equation SODIUM 02/13/2024 13:48:00 139 135-146 (m mol/L) Final Potassium 02/13/2024 13:48:00 4.6 3.5-5.1 (m mol/L) Final Cl 02/13/2024 13:48:00 110 Above high normal 98 -107 (mmol/L) Final CO2 02/13/2024 13:48:00 21 Below low normal 22- 32 (mmol/L) Final Anion gap 02/13/2024 13:48:00 8 7-15 (mmol /L) Final Glucose 02/13/2024 13:48:00 174 Above high normal 70 -120 (mg/dL) Final Albumin 02/13/2024 13:48:00 2.5 Below low normal 3.8 -5.0 (g/dL) Final AST (Aspartate aminotransferase) 02/13/2024 13:48:00 50 10-50 (U/L) Fin al Alk Phos 02/13/2024 13:48:00 297 Above high normal 35 -130 (U/L) Final Bilirubin, Total 02/13/2024 13:48:00 1.9 Above high no rmal <=1.2 (mg/dL) Final Calcium 02/13/2024 13:48:00 8.1 Below low normal 8.4 -10.2 (mg/dL) Final Protein 02/13/2024 13:48:00 5.8 Below low normal 6.0 -8.3 (g/dL) Final ALT (Alanine aminotransferase) 02/13/2024 13:48:00 33 10-50 (U/L) Layo dye [facility] Location LABORATORY [facility] - [address] [place], [place] [address]mar[address] [place] [address]
--- OUTSIDE RECORDS SUMMARY | 2024-02-20 15:25 | External Medical Summary | Summary of Care ---
Author Name Unknown Organization [facility] Address [address] [facility] [place] [address] Phone [phone] Care Team Providers Care Abe Teacher Name Role Phone Francisco Cisse MD Primary Care Provider + Reason for Visit * Reason Onset Date Comments Precert Approved 01/16/2024 xifaxan Encounter Details Date Type Department Care Team (Late st Contact Info) Description 01/16/2024 Telephone Gastroenterology, [facility] [address] [place] [address] Lamar Tatum CRNP [address] [place] [address] Precert Approved (xifaxan) Allergies No known active allergiesdocumented as of this encounter (statuses as of 02/12/2024) Medications Medication Sig Dispensed Refills Start Date [...] as of this encounter (statuses as of 02/12/2024) Active Problems Problem Noted Date Diagnosed Date [...] as of this encounter (statuses as of 02/12/2024) Resolved Problems Problem Noted Date Diagnosed Date [...] as of this encounter (statuses as of 02/12/2024) Immunizations Name Administration Dates Next Due COVID-19 mRNA, LNP-s, No Pre serve, 2-Dose Series ([employer]) 03/08/2021,02/15/2021 HepA Inact/HepB Recomb>=18yrs old 12/04/2019,04/2019,05/20/2019 11/19/2019 PPD 06/18/2017, 3,01/09/2012,0306/2011 Pneumococcal Conjugate Vacc, 13 Valent (Prevnar) 05/01/2017 Pneumococcal Polysaccharide PPV23 (Pneumovax) 08/28/2022,10/25/2015,07/14/2012 Season Influenza, Quad, PF, Adjuvanted, 65+ Yrs, IM (FLUAD) 10/07/2020(Deferred: Patient Refused - pt says he already had his shot last month at [facility] Handy Lyons and Mckinley Cobian made [...] encounter Miscellaneous Notes * Telephone Encounter - Megan Bear RN - 01/28/2024 3:20 PM EST I called and confirmed with the patient he was able to get the Xifaxan upon discharge. He is is scheduled for a ferritin infusion tomorrow. He has been feeling weak and is experiencing fatigue since he has been out of the hospital. He states his son tested positive for COVID recently and had the same symptoms. His son Alex is going to test him later this afternoon. He will follow upwith Dr. Cisse if he does not start feeling better. We also discussed his ongoing Anemia which can make him feel fatigued. Denies any SOB. * Telephone Encounter - Sonali Gould LPN - 01/24/2024 4:14 PM EST Images from the original note were not included. eferral Notes Number of Notes: 2 . Type Date User Summary Attachment Precert 01/24/2024 8:25 AM Dalia Myers OSA - - Note: New or re-auth: New authorization Approved/Denied: Approved Drug Name and Formulation: xifaxan 550mg tab How Prescribed(directions/sig): Sig - Route: Take 1 Tablet by mouth in the morning and 1 Tablet before bedtime. - Oral Day Supply: 30 Did you receive insurance information from outside the chart? No, received insurance information within the chart Valid auth start date: 01/23/2024 Valid auth end date: 12/01/2099 Rx Insurance Info: [employer] [place] Reference #: na Rx Benefits Verified through/on date: epic Referral (TE) received from: Prescribing Clinic Dalia Myers Children'S Nursery Assistant [facility] 01/24/24,8:24 AM . Type Date User Summary Attachment Precert 01/23/2024 1:25 PM Dalia Myers OSA - - Note: [facility] Authorization Submission Submission Information: Medication: xifaxan 550 Portal used: [facility] Insurance: [facility] Authorization #/Kaur: [id number] Dalia Myers Children'S Nursery Assistant [facility] * Telephone Encounter - Sonali Gould LPN - 01/24/2024 3:12 PM EST Pt into clinic today and missed telling him that this was approved. Lamar- were you able to see this and tell him by chance * Telephone Encounter - Sonali Gould LPN - 01/24/2024 10:36 AM EST Pt called and unable to leave a msg regarding approval of xifaxan until further notice because the voicemail is full. * Telephone Encounter - Sonali Gould LPN - 01/24/2024 10:35 AM EST Images from the original note were not included. Referral Notes Number of Notes: 2 . Type Date User Summary Attachment Precert 01/24/2024 8:25 AM Dalia Myers OSA - - Note: New or re-auth: New authorization Approved/Denied: Approved Drug Name and Formulation: xifaxan 550mg tab How Prescribed(directions/sig): Sig - Route: Take 1 Tablet by mouth in the morning and 1 Tablet before bedtime. - Oral Day Supply: 30 Did you receive insurance information from outside the chart? No, received insurance information within the chart Valid auth start date: 01/23/2024 Valid auth end date: 12/01/2099 Rx Insurance Info: sabas [place] Reference #: na Rx Benefits Verified through/on date: epic Referral (TE) received from: Prescribing Clinic Dalia Myers Children'S Nursery Assistant [facility] 01/24/24,8:24 AM . Type Date User Summary Attachment Precert 01/23/2024 1:25 PM Dalia Myers, ESTELLE - - Note: [facility] Authorization Submission Submission Information: Medication: xifaxan 550 Portal used: [facility] Insurance: [employer] Authorization #/Kaur: [id number] Dalia Myers Children'S Nursery Assistant [facility] 01/23/24,1:25 PM * Telephone Encounter - Keyonna Quiroz RN - 01/16/2024 4:10 PM EST [facility] asking for prior auth for Xifaxan Or choose alternative drug. Please start prior auth for ongoing medication Gastro Pre-Cert Request Specialty Medication: No. Medication/Disease State Information: Medication: Xifaxan Diagnosis (including ICD-10): Cirrhosis of liver K74.60 Site of care: Self-administered - route pre-cert request to [id number] Office Information: Prescriber: Lamar Tatum This is an ongoing medication documented in this encounter Plan of Treatment Upcoming Encounters Date Type Department Care Team (Late st Contact Info) Description 02/13/2024 11:00 AM EDT Office Visit General Internal Medicine [place] [facility] Avilez [address] [place] [address] Gege Herbert MD [address] [place] [address] 02/14/2024 2:45 PM EDT Office Visit Urology [place] [address] [place] [address] Frank Peraza MD [address] [place] [address] 02/17/2024 8:00 AM EDT Office Visit [facility] [address] [place] [address] Chavez Sapp MD [address] [place] [address] 02/18/2024 8:40 AM EDT Laboratory Lab Mobile Phlebotomy [facility] [address] [place] [address] Gm, Gml Mobile Home Draw [address] [place] [address] 02/24/2024 10:45 AM EDT Imaging Radiology [address] [place] [address] 03/03/2024 8:40 AM EDT Laboratory Lab Mobile Phlebotomy [facility] [address] [place] [address] [facility], Gml Mobile Home Draw [address] [place] [address] 03/13/2024 2:00 PM EDT Office Visit Dermatology [facility] [address] [place] [address] Francisco Watson MD [address] [place] [address] 03/17/2024 8:40 AM EDT Laboratory Lab Mobile Phlebotomy [facility] [address] [place] [address] [facility], Gml Mobile Home Draw [address] [place] [address] 03/24/2024 2:30 PM EDT Office Visit Hematology/Oncology [facility] [address] [facility] [place] [address] Ayaka Tatum CRNP [address] [place] [address] 03/30/2024 12:00 PM EDT Office Visit Family Practice [facility] [address] [place] [address] Kristen Vences DO [address] [place] [address] 03/31/2024 8:40 AM EDT Laboratory Lab Mobile Phlebotomy [facility] [address] [place] [address] Gmc, Gml Mobile Home Draw [address] [place] [address] 04/07/2024 10:00 AM EDT Office Visit Gastroenterology, [facility] 132 [place] [address] Lamar Tatum CRNP [address] [place] [address] 04/14/2024 8:40 AM EDT Laboratory Lab Mobile Phlebotomy [facility] [address] [place] [address] Gmc, Gml Mobile Home Draw [address] [place] [address] 04/28/2024 8:40 AM EDT Laboratory Lab Mobile Phlebotomy [facility] [address] [place] [address] Gmc, Gml Mobile Home Draw [address] [place] [address] 05/12/2024 8:40 AM EDT Laboratory Lab Mobile Phlebotomy C [address] [place] [address] Gmc, Gml Mobile Home Draw [address] [place] [address] 05/26/2024 8:40 AM EDT Laboratory Lab Mobile Phlebotomy [facility] [address] [place] [address] Gmc, Gml Mobile Home Draw [address] [place] [address] 06/09/2024 8:40 AM EDT Laboratory Lab Mobile Phlebotomy [facility] [address] [place] [address] Gmc, Gml Mobile Home Draw [address] [place] [address] 06/23/2024 8:40 AM EDT Laboratory Lab Mobile Phlebotomy [facility] [address] [place] [address] Gmc, Gml Mobile Home Draw [address] [place] [address] 07/07/2024 8:40 AM EDT Laboratory Lab Mobile Phlebotomy [facility] [address] [place] [address] Gmc, Gml Mobile Home Draw [address] [place] [address] 07/21/2024 8:40 AM EDT Laboratory Lab Mobile Phlebotomy [facility] [address] [place] [address] Gmc, Gml Mobile Home Draw [address] [place] [address] 08/04/2024 8:40 AM EDT Laboratory Lab Mobile Phlebotomy [facility] [address] [place] [address] Gmc, Gml Mobile Home Draw [address] [place] [address] 08/18/2024 8:40 AM EDT Laboratory Lab Mobile Phlebotomy [facility] [address] [place] [address] [facility], [facility] Mobile Home Draw [address] [place] [address] 08/20/2024 10:15 AM EDT Office Visit Ophthalmology, [facility] [address] [place] [address] Cody Gonzalez, DO [address] [facility] [place] [address] 09/01/2024 8:40 AM EDT Laboratory Lab Mobile Phlebotomy [facility] [address] [place] [address] [facility], [facility] Mobile Home Draw [address] [place] [address] 09/15/2024 8:40 AM EDT Laboratory Lab Mobile Phlebotomy [facility] [address] [place] [address] [facility], [facility] Mobile Home Draw [address] [place] [address] Scheduled Procedures Name Priority Associated Diagnoses Date/Ti [...] Additional history exists CKD PHOS USE SMARTSET 89960 01/28/202401/03, 07/26/2022, 12/05/2021, Additional history exists Diabetic Foot Exam 03/06/2024 03/06/2023, 0 01/03/2022, 03/02/2021, Additional history exists HbA1c 05/28/2024 11/27/2023, 05/03, 01/28/2023, Additional history exists Albumin/Creatinine Ratio 07/12/2024 023, 10/01/2022, 09/11/2021, Additional history exists GFR 07/24/2024 01/24/2024, 01/02, 12/23/2023, Additional history exists COLONOSCOPY-ANNUAL AGES 18-100 08/09/2024 08/09/2023, 11/07/2022, 11/07/2022, Additional history exists CKD HGB USE SMARTSET 05854 01/29/2025, 01/30/2024, 01/24/2024, Additional history exists Lipid [...] this encounter Medical Devices Implanted Type Area Echometer Engineer Device Identifier Shelf Expiration Date Model / Serial / Lot Clareon Iol Aspheric Hydrophobic Acrylic Iol Implanted:Qty: 1 on 04/23/2023 by Cody Gonzalez DO at [facility] Lens Left: Eye 11/12/2025 CNA0T0 / [id number] / Viatorr Tips Endoprosthesis 8-10 Mm X 8cm / 2cm Implanted:Qty: 1 on 10/07/2020 by Go Alvarado MD at [facility] Right: Abdomen 03/03/2023 [id number] / / [id number] Description:Viatorr TIPS End oprosthesis 8-10 mm x 8cm / 2cm, Manufactored by [employer] Syr Pf 2ml Embospheres 100-300 - [id number] Implanted:Qty: 1 on 04/18/2021 by Kevin Lim DO at [facility] Left: Abdomen [employer] [id number] 11/25/2023 S220GH / / [id number] Lipiodol Injection - [id number] Implanted:Qty: 1 on 03/28/2022 at [facility] [employer] 03/01/2023 [id number] 01-2 / / [id number] Syr Pf 2ml Embospheres 100-300 - [id number] Implanted:Qty: 1 on 03/28/2022 at [facility] [employer] [id number] 08/31/2024 S220GH / / [id number] -[id number] Clareon Iol Aspheric Hydrophobic Acrylic Iol Implanted:Qty: 1 on 04/02/2023 by Cody Gonzalez DO at [facility] Right: Eye JAZMIN 11/12/2025 CNA0T0 / [id number] / documented as of this encounter Advance Directives Documents on File Type Date Recorded Patient Cataract Lens Generator Expl anation Advance Directives and Living Will 12/11/2022 ADVANCE DIRECTIVE / LIVING WILL LIVING WILL Power of Storage Battery Inspector And Tester 12/11/2022 POWER OF A TTORNEY Latest [...] the patient have Health Care Power of Storage Battery Inspector And Tester? No Care Teams Abe Teacher Relationship Specialty Start Date End Date Francisco Cisse MD [address] [place] [address] PCP - General Internal Medicine 09/04/21 documented as of this encounter
--- OUTSIDE RECORDS SUMMARY | 2024-02-20 15:25 | External Medical Summary | Summary of Care ---
Author Name Unknown Organization [facility] Address [address] [place] [address] Phone [phone] Care Team Providers Care Topographic Computator Name Role Phone Francisco Cisse MD Primary Care Provider + Reason for Visit * Reason Onset Date Comments Pre-Transplant Evaluation 02/12/2024 Encounter Details Date Type Department Care Team (Late st Contact Info) Description [facility] [address] [place] [address] Jocelyne Sykes, RN Pre-Transplant Evaluation Allergies No known active allergiesdocumented as of [...] than 7.0% ([facility]) Use to test blood sugars 3 [...] Miscellaneous Notes * Telephone Encounter - Jocelyne Sykes RN - 02/12/2024 11:12 AM EDT I left a message for Mr. Hale's son Alex Smith an appointment for his annual liver transplant evaluation on 02/17/24 since they will already be in [place] to see IR. I left my contact information for him to call me back. documented in this encounter Plan of Treatment Upcoming Encounters Date Type Department Care Team (Late st Contact Info) Description 02/13/2024 11:00 AM EDT Office Visit General Internal Medicine [address] [place] [address] [place] [address] Gege Herbert MD [address] [place], [place] [address] 02/14/2024 2:45 PM EDT Office Visit Urology [place]nette Fitzpatrick [address] [place] [id number] Frank Peraza MD [address] [place] [address] 02/17/2024 8:00 AM EDT Office Visit [facility] [place] [address] [place] [address] Chavez Sapp MD [address] [place] [address] 02/18/2024 8:40 AM EDT Laboratory Lab Mobile [facility] [address] [place] [address] Gm, Gml Mobile Home Draw [address] [place] [address] 02/24/2024 10:45 AM EDT Imaging Radiology [address] [address] 03/03/2024 8:40 AM EDT Laboratory Lab Mobile Ph[facility] [address] [place] [address] [facility], [facility] Mobile Home Draw [address] [place] [address] 03/13/2024 2:00 PM EDT Office Visit Dermatology [facility] 200 [facility] [place] [address] Francisco Watson MD [address] [place] [address] 03/17/2024 8:40 AM EDT Laboratory Lab Mobile Phlebotomy [facility] [address] [place] [address] [facility], l Mobile Home Draw [address] [place] [address] 03/24/2024 2:30 PM EDT Office Visit Hematology/Oncology [facility] [address] [place] [address] Ayaka Tatum CRNP [address] [place] [address] 03/30/2024 12:00 PM EDT Office Visit Family Practice [facility] [address] [place] [address] Kristen Vences DO [address] [place] [address] 03/31/2024 8:40 AM EDT Laboratory Lab Mobile Phlebotomy C [address] [place] [address] Gmc, Gml Mobile Home Draw [address] [place] [address] 04/07/2024 10:00 AM EDT Office Visit Gastroenterology, [facility] [address] [place] [address] Lamar Tatum CRNP [address] [place] [address] 04/14/2024 8:40 AM EDT Laboratory Lab Mobile Phlebotomy C [address] [place] [address] Gmc, Gml Mobile Home Draw [address] [place] [address] 04/28/2024 8:40 AM EDT Laboratory Lab Mobile Phlebotomy [facility] [address] [place] [address] Gmc, Gml Mobile Home Draw [address] [place] [address] 05/12/2024 8:40 AM EDT Laboratory Lab Mobile Phlebotomy [facility] [address] [place] [address] Gmc, Gml Mobile Home Draw [address] [place] [address] 05/26/2024 8:40 AM EDT Laboratory Lab Mobile Phlebotomy [facility] [address] [place] [address] Gmc, Gml Mobile Home Draw [address] [place] [address] 06/09/2024 8:40 AM EDT Laboratory Lab Mobile Phlebotomy [facility] [address] [place] [address] Gmc, Gml Mobile Home Draw [address] [place] [address] 06/23/2024 8:40 AM EDT Laboratory Lab Mobile Phlebotomy [facility] [address] [place] [address] Gmc, Gml Mobile Home Draw [address] [place] [address] 07/07/2024 8:40 AM EDT Laboratory Lab Mobile Phlebotomy [facility] [address] [place] [address] Gmc, Gml Mobile Home Draw [address] [place] [address] 07/21/2024 8:40 AM EDT Laboratory Lab Mobile Phlebotomy [facility] [address] [place] [address] Gmc, Gml Mobile Home Draw [address] [place] [address] 08/04/2024 8:40 AM EDT Laboratory Lab Mobile Phlebotomy [facility] [address] [place] [address] Gmc, Gml Mobile Home Draw [address] [place] [address] 08/18/2024 8:40 AM EDT Laboratory Lab Mobile Phlebotomy [facility] [address] [place] [address] Gmc, Gml Mobile Home Draw [address] [place] [address] 08/20/2024 10:15 AM EDT Office Visit Ophthalmology, [facility] [address] [facility] [place] [address] Cody Gonzalez DO [address] [place] [address] 09/01/2024 8:40 AM EDT Laboratory Lab Mobile Phlebotomy [facility] [address] [place] [address] Gmc, [facility] Mobile Home Draw [address] [place] [address] 09/15/2024 8:40 AM EDT Laboratory Lab Mobile Phlebotomy [facility] [address] [place] [address] [facility], [facility] Mobile Home Draw [address] [place] [address] Scheduled Procedures Name Priority Associated Diagnoses Date/Ti [...] Additional history exists CKD PHOS USE SMARTSET 08165 01/28/202401/03, 07/26/2022, 12/05/2021, Additional history exists Diabetic Foot Exam 03/06/2024 03/06/2023, 0 01/03/2022, 03/02/2021, Additional history exists HbA1c 05/28/2024 11/27/2023, 05/03, 01/28/2023, Additional history exists Albumin/Creatinine Ratio 07/12/2024 023, 10/01/2022, 09/11/2021, Additional history exists GFR 07/24/2024 01/24/2024, 01/02, 12/23/2023, Additional history exists COLONOSCOPY-ANNUAL AGES 18-100 08/09/2024 08/09/2023, 11/07/2022, 11/07/2022, Additional history exists CKD HGB USE SMARTSET 38161 01/29/2025, 01/30/2024, 01/24/2024, Additional history exists Lipid [...] this encounter Medical Devices Implanted Type Area Upholsterer Helper Device Identifier Shelf Expiration Date Model / Serial / Lot Clareon Iol Aspheric Hydrophobic Acrylic Iol Implanted:Qty: 1 on 04/23/2023 by Cody Gonzalez DO at [facility] Lens Left: Eye 11/12/2025 CNA0T0 / [id number] / Viatorr Tips Endoprosthesis 8-10 Mm X 8cm / 2cm Implanted:Qty: 1 on 10/07/2020 by Go Alvarado MD at [facility] Right: Abdomen 03/03/2023 [id number] / / [id number] Description:Viatorr TIPS End oprosthesis 8-10 mm x 8cm / 2cm, Manufactored by [employer] Syr Pf 2ml Embospheres 100-300 - [id number] Implanted:Qty: 1 on 04/18/2021 by Kevin Lim DO at [facility] Left: Abdomen [employer] [id number] 11/25/2023 S220GH / / [id number] Lipiodol Injection - [id number] Implanted:Qty: 1 on 03/28/2022 at [facility] [employer] 03/01/2023 [id number] 01-2 / / [id number] Syr Pf 2ml Embospheres 100-300 - [id number] Implanted:Qty: 1 on 03/28/2022 at [facility] [employer] [id number] 08/31/2024 S220GH / / [id number] -[id number] Clareon Iol Aspheric Hydrophobic Acrylic Iol Implanted:Qty: 1 on 04/02/2023 by Cody Gonzalez DO at [facility] Right: Eye JAZMIN 11/12/2025 CNA0T0 / [id number] / documented as of this encounter Advance Directives Documents on File Type Date Recorded Patient Marketing Planner Expl anation Advance Directives and Living Will 12/11/2022 ADVANCE DIRECTIVE / LIVING WILL LIVING WILL Power of Apple Checker 12/11/2022 POWER OF A TTORNEY Latest [...] the patient have Health Care Power of Apple Checker? No Care Teams Topographic Computator Relationship Specialty Start Date End Date Francisco Cisse MD [address] [place] [address] PCP - General Internal Medicine 09/04/21 documented as of this encounter
--- OUTSIDE RECORDS SUMMARY | 2024-02-20 15:25 | External Medical Summary ---
Author Name Unknown Address Unknown Organization K1F:LABORATORY [facility] - [address] [place] [address] Laboratory Report Ordering Provider Test Date Status DEMONDANTHONYSHA 02/13/2024 13:48:00 Final Observation Date Value Abnormality Reference (Units ) Status WBC, Total 02/13/2024 13:48:00 7.50 4.00-10.80 (K/uL) Final RBC 02/13/2024 13:48:00 2.60 4.50-5.25 (M/uL) Final Hemoglobin 02/13/2024 13:48:00 8.5 Below low normal 14.0-16.8 (g/dL) Final HCT 02/13/2024 13:48:00 26.0 Below low normal 40.0-48.4 (%) Final MCV 02/13/2024 13:48:00 100.0 82.0-99.5 (fL) Final MCH 02/13/2024 13:48:00 32.7 27.0-34.0 (pg) Final MCHC 02/13/2024 13:48:00 32.7 32.0-36.0 (g/dL) Final RDW 02/13/2024 13:48:00 21.9 11.5-15.5 (%) Final Platelets 02/13/2024 13:48:00 119 Below low normal 140-400 (K/uL) Final MPV 02/13/2024 13:48:00 12.2 6.6-11.1 (fL) Final Nucleated erythrocytes/100 leukocytes [Ratio] in Blood by Automated count 02/13/2024 13:48:00 0 <=0 (/100 WBCs) Final Performing Location LAB[facility] - [address] [place] [address]
--- OUTSIDE RECORDS SUMMARY | 2024-02-20 15:25 | External Medical Summary ---
Author Name Unknown Address Unknown Organization K1F:LABORATORY [facility] - [address] [facility]. [place] [address] Laboratory Report Ordering Provider Test Date Status KENNETH LAGOS 02/13/2024 13:48:00 Final Observation Date Value Abnormality Reference (Units ) Status SYNC LEUKOCYTES IN BLOOD BY AUTOMATED COUNT 02/13/2024 13:48:00 7.50 4.00-10.80 (K/uL) Final Segs 02/13/2024 13:48:00 80.6 Above high normal 40.0-75.0 (%) Final Lymphs % 02/13/2024 13:48:00 11.9 Below low normal 18.0-42.0 (%) Final Monos 02/13/2024 13:48:00 4.4 1.0-11.0 (%) Final Eosinophils 02/13/2024 13:48:00 2.1 0.0-6.0 (%) Final Basos 02/13/2024 13:48:00 0.3 0.0-2.0 (%) Final Immature Granulocyte, Percent 02/13/2024 13:48:00 0.7 0.0-2.0 (%) Final Absolute Segs 02/13/2024 13:48:00 6.05 1.80-7.70 (K/uL) Final Lymphs, absolute 02/13/2024 13:48:00 0.89 Below low normal 1.00-4.80 (K/ul) Final Monos, Abs 02/13/2024 13:48:00 0.33 0.00-1.10 (K/uL) Final Eos, Abs 02/13/2024 13:48:00 0.16 0.00-0.70 (K/uL) Final Basos, Abs 02/13/2024 13:48:00 0.02 0.00-0.20 (K/uL) Final Immature Granulocytes, Number 02/13/2024 13:48:00 0.05 0.00-0.20 (K/uL) Final Performing Location LABORATORY [facility] - [address] [place], [place] [address]. [place] [address]
[2024-02-20 20:41] LABS: Appearance Urine Cloudy (Clear); Color Urine Red
[2024-02-20 20:46] LABS: Bacteria Urine Automated 1+ (Negative); Bilirubin Urine Negative (Negative); Blood Urine 3+ (Negative); Epithelial Cell Urine Auto 0-5 /lpf (0-5); Glucose Urine UA Negative (Negative); Ketones Urine Negative (Negative); Leukocyte Esterase Urine Trace (Negative); Nitrite Urine Negative (Negative); Protein Urine 3+ (Negative); RBC Urine Automated >30 /hpf (0-4); Specific Gravity Urine 1.024 (1.000-1.030); Urobilinogen Urine Negative (Negative); WBC Urine Automated >30 /hpf (0-5); pH Urine 6.5 (4.5-7.5)
[2024-02-20 21:07] LABS: Cast Urine Automated 0 /lpf (0-5)
[2024-02-20] MEDS: LANTUS PER UNIT CHARGE SQ SCH (22:02)
[2024-02-20] MEDS: LACTULOSE SYRUP 20 GM/30 ML UDC PO SCH (22:10)
[2024-02-20] MEDS: rifAXIMin 550 MG TABLET PO SCH (22:10)
[2024-02-20] MEDS: oxyBUTYnin chloride 5 MG TAB PO SCH (22:10)
[2024-02-20] MEDS: MIRTAZAPINE TAB 15 MG TAB PO SCH (23:20)
[2024-02-21 06:02] LABS: Hematocrit (blood only) 24.1 % (42.0-52.0); Hemoglobin 7.9 g/dl (14.0-18.0); Mean Corpuscular Hemoglobin 31.2 pg (25.0-34.0); Mean Corpuscular Hgb Conc 32.8 g/dL (32.0-36.0); Mean Corpuscular Volume 95.3 fL (80.0-100.0); Mean Platelet Volume 11.6 fL (9.4-12.4); Platelet Count 106 K/uL (130-400); RDW Coefficient of Variation 22.2 % (11.5-14.5); RDW Standard Deviation 75.1 fL (36.4-46.3); Red Blood Count 2.53 M/uL (4.70-6.10); White Blood Count 5.43 K/ul (4.8-10.8)
[2024-02-21 06:27] LABS: Albumin Globulin Ratio 0.7 (0.9-2); Albumin Level 2.1 gm/dl (3.4-5.0); BUN Creatinine Ratio 19.8 (10-20); Bilirubin,Total 2.1 mg/dl (0.2-1.0); Calcium 7.4 mg/dl (8.6-10.3); Creatinine Clr Calc Pharmacy 56.1 ml/min; Est GFR (African American) 68.4 ml/min; Potassium 4.3 mmol/L (3.5-5.1); Total Protein 5.1 gm/dl (6.0-8.3)
[2024-02-21 07:48] LABS: Estimated Average Glucose 114 mg/dl; Hemoglobin A1C 5.6 % (4.5-5.6)
[2024-02-21] MEDS: allopurinoL 100 MG TAB PO SCH (09:51)
[2024-02-21] MEDS: DULoxetine HCL 30 MG CAP PO SCH (09:51)
[2024-02-21] MEDS: FERROUS SULFATE 325 MG TAB PO SCH (09:51)
[2024-02-21] MEDS: ACETYLCYSTEINE 600 MG CAP PO SCH (09:51)
[2024-02-21] MEDS: FUROSEMIDE 40 MG TAB PO SCH (09:52)
[2024-02-21] MEDS: FINASTERIDE 5 MG TAB PO SCH (09:52)
[2024-02-21] MEDS: CEROVITE ADV FORMULA TAB PO SCH (09:53)
[2024-02-21] MEDS: ZINC SULFATE 220 MG CAPSULE PO SCH (09:53)
--- NOTE | 2024-02-21 11:36 | Urology Progress Note ---
Date of Service February 21, 2024 Assessment & Plan (1) Hematuria: (2) Cystitis, radiation: (3) Daily urinary incontinence: Plan 73-year-old male admitted with anemia and gross hematuria. Afebrile and hemodynamically stable. Labs reviewed- hemoglobin 7.9 (PRBC transfusion yesterday), Wbc 5.43, Creatinine 1.21 Urine culture pending. Voiding spontaneously, continue to monitor. 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 Per his report, he is awaiting visit to start hyperbaric oxygen therapy as an outpatient. As long as he is voiding, no need for procedural intervention. PVRs will likely be unreliable d/t ascites. Continue supportive care and management per primary team. Continue to trend labs. Antibiotics as indicated pending urine culture results. Patient should follow-up with Dr. Peraza outpatient. Urology will follow peripherally. Please call with any further questions or concerns. Admission and Anticipated Discharge Date Admission Date: February 20, 2024 Subjective Pt examined at bedside today. Awake, resting in bed on arrival. No acute distress. Reports he is voiding without issue and hematuria has improved some. Feels he is emptying his bladder well. Denies f/c/n/v. Denies suprapubic pain/pressure. Review of Systems Constitutional: as per Subjective / HPI Genitourinary: + as per Subjective / HPI Physical Exam Constitutional: no acute distress Respiratory: no respiratory distress and no labored breathing Neurologic: awake Psychiatric: A+Ox3, euthymic affect Results & Data Vital Signs (Past 12 Hours) Vital Signs Temp Pulse Pulse Resp BP Pulse Ox O2 Del Method 02/21/24 07:57 37.0 C 67 18 118/54 L 95 Room Air 02/21/24 07:37 67 02/21/24 03:31 37.6 C H 72 16 113/58 L 93 Room Air 02/21/24 00:02 66 PG Care Time/CCT Total # of Minutes Spent Total Time Spent with Patient: Total time spent is greater than 50% in coordination of care (as documented) at patient's floor/unit and/or counseling patient: Coding Level of Care Code 83338 SUB INP/OBS CARE 2/35MIN Diagnoses Gross hematuria R31.0 Hematuria type: gross Cystitis, radiation N30.40 Daily urinary incontinence R32 (1) Hematuria Hematuria type: gross Qualified Code(s): R31.0 - Gross hematuria
[2024-02-21] MEDS: ADVANCED PROBIOTIC 625 MG CAPSULE PO SCH ×2 (12:43→12:55)
--- NOTE | 2024-02-21 15:01 | Hospitalist Progress Note ---
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: (5) Depression: (6) Prostate cancer: (7) CKD (chronic kidney disease) stage 3, GFR 30-59 ml/min: (8) Insulin dependent type 2 diabetes mellitus: Plan 73-year-old male with PMH of type 2 diabetes, restrictive lung disease, hyperlipidemia, chronic gout, pulmonary hypertension, gout, esophageal varices, portal vein thrombosis, prolonged QT, mild mitral regurgitation, aortic valve sclerosis, cirrhosis of liver status post TIPS, GERD, hepatocellular carcinoma s/p embolization, prostate cancer s/p radiation, radiation proctitis, protein calorie malnutrition, chronic kidney stage III, history of gross hematuria, acquired thrombocytopenia, iron deficiency anemia, CKD stage III, pancytopenia, psoriasis and presents with ongoing hematuria. Has been admitted in Jan and January (most recently from 02/02-) for worsening anemia in setting of hematuria, radiation proctitis and has received blood transfusions. Patient presented again on 02/12 in ED and underwent bladder irrigation with urology. Has not had mendoza in place for the past week [employer]PECT[employer]ER - self removed mendoza at home. Primary urologist is Dr. Peraza. Due for MTU on the day of admission but decided to present to ED instead. Hematuria BPH/prostate cancer status post radiation H/o radiation cystitis Afebrile, hemodynamically stable Hemoglobin close to baseline at 7.3 (at presentation) despite chronic hematuria Removed Mendoza at home since last seen due to discomfort. see above. Transfusion 1 unit PRBCs on admitting day Appreciate urology recs - f/u w/ uro as OP. ?UTI: pt w/ hematuria but chronic problem. UCX growing GNB, will start rocephin, follow Cx. CKD III Cr at baseline .. Continue to monitor 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 Hepatocellular carcinoma status post IR embolization History GAVE/esophageal varices/portal hypertensive gastropathy/radiation proctitis/diverticulosis on endoscopy Appears euvolemic today Continue home Lasix, lactulose and Xifaxan and Protonix DM II A1c of 5.03 November 2023, repeat tomorrow Hold home agents SSI while in-patient BSG AC HS DVT Ppx: SCDs given hematuria Code status: FULL PCP: Tanna Dispo: observation med tele , once UCx is finalized. Admission and Anticipated Discharge Date Admission Date: February 20, 2024 Subjective Patient seen and examined at bedside. Patient was lying in bed, awake, NAD, resting comfortably. Reports voiding blood clots followed by small amount of urine. Has been able to void so far. Denies any fever/chills/chest pain/headache/dizziness. Physical Exam Physical Exam: GENERAL APPEARANCE: AxOx4,tired appearing gentleman , no acute distress. HEENT: NC, AT. MMM. EOMI, clear conjunctiva, oropharynx clear. NECK: Supple without lymphadenopathy. No stiffness or restricted ROM. HEART: Normal rate and regular rhythm, WINTER+ LUNGS: CTAB, moving air well. No crackles or wheezes are heard. ABDOMEN: Soft, nontender, mildly protuberant BACK: No CVAT, no obvious deformity. EXTREMITIES: Without cyanosis, clubbing or edema. NEUROLOGICAL: Grossly nonfocal. Alert and oriented, moving all 4 extremities. CN not formally tested but appear grossly intact Skin: Warm and dry without any rash. Results & Data Results & Data Vital Signs (Past 12 Hours) Vital Signs Temp Pulse Pulse Resp BP Pulse Ox O2 Del Method 02/21/24 11:57 37.3 C 67 18 128/52 L 93 Room Air 02/21/24 07:57 37.0 C 67 18 118/54 L 95 Room Air 02/21/24 07:37 67 02/21/24 03:31 37.6 C H 72 16 113/58 L 93 Room Air (2) Hematuria Hematuria type: gross Qualified Code(s): R31.0 - Gross hematuria (3) Anemia Anemia type: unspecified type Qualified Code(s): D64.9 - Anemia, unspecified (7) CKD (chronic kidney disease) stage 3, GFR 30-59 ml/min Chronic kidney disease stage 3 subtype: unspecified whether 3a or 3b Qualified Code(s): N18.30 - Chronic kidney disease, stage 3 unspecified
[2024-02-21] MEDS: cefTRIAXone SODIUM 2,000 MG in DEXTROSE 5 % MINI-B 50 ML IV SCH (16:48)
[2024-02-22 05:11] LABS: Hematocrit (blood only) 24.7 % (42.0-52.0); Hemoglobin 7.9 g/dl (14.0-18.0); Mean Corpuscular Volume 96.9 fL (80.0-100.0); Mean Platelet Volume 11.2 fL (9.4-12.4); Platelet Count 99 K/uL (130-400); RDW Coefficient of Variation 21.9 % (11.5-14.5); Red Blood Count 2.55 M/uL (4.70-6.10); White Blood Count 5.27 K/ul (4.8-10.8)
[2024-02-22 05:26] LABS: BUN Creatinine Ratio 20.2 (10-20); Calcium 7.4 mg/dl (8.6-10.3); Creatinine Clr Calc Pharmacy 59.6 ml/min; Est GFR (African American) 73.5 ml/min; Est GFR (Non-African American) 63.4 ml/min; Magnesium 1.3 mg/dl (1.7-2.4); Potassium 4.1 mmol/L (3.5-5.1)
--- OUTSIDE RECORDS SUMMARY | 2024-02-22 06:46 | External Medical Summary | Summary of Care ---
Author Name Unknown Organization [facility] Address [address] [place] [address] Phone [phone] Care Team Providers Care Model Dresser Name Role Phone Francisco Cisse MD Primary Care Provider + Reason for Visit * Reason Onset Date Comments Test Results Lab 02/18/2024 Encounter Details Date Type Department Care Team (Late st Contact Info) Description 02/18/2024 Telephone Hematology/Oncology [facility] [address] [facility] [address] Ayaka Tatum CRNP [address] [facility] [place] [address] Test Results Lab Allergies No known active allergiesdocumented as of this encounter (statuses as of 02/21/2024) Medications Medication Sig Dispensed Refills Start Date [...] as of this encounter (statuses as of 02/21/2024) Active Problems Problem Noted Date Diagnosed Date [...] as of this encounter (statuses as of 02/21/2024) Resolved Problems Problem Noted Date Diagnosed Date [...] 02/09/2019 04/13/2021 Overview: Per CKD protocol #1 OFFANA (nonalcoholic steatohepatitis) 09/03/2018 01/18/2023 NAFLD (nonalcoholic fatty [...] as of this encounter (statuses as of 02/21/2024) Immunizations Name Administration Dates Next Due COVID-19 mRNA, LNP-s, No Pre serve, 2-Dose Series ([employer]) 03/08/2021,02/15/2021 HepA Inact/HepB Recomb>=18yrs old 12/04/2019,04/2019,05/20/2019 11/19/2019 [...] encounter Miscellaneous Notes * Telephone Encounter - Kecia Baca LPN - 02/21/2024 9:11 AM EDT LAMONT Norton from [place] [facility] returned call to inform our office that they have received the records and his case is under review. There is a delay because the patients health condition may disqualify him as a appropriate candidate for hypobaric therapy the wound clinic is still working on the referral. * Telephone Encounter - Josephine Murphy RN - 02/19/2024 12:23 PM EDT [facility] hospitalist will consent patient for transfusion- updated MTU. * Telephone Encounter - Kaylie Glass LPN - 02/19/2024 11:28 AM EDT Spoke with patient. States [place] [facility] center is to call him [...] a transfusion tomorrow. His son would prefer international trade compliance manager appt Patient to receive 1 unit PRBC for hgb 7.0. Called [facility] blood bank. No issues with having blood available pending changes to T&S. Called [facility] MTU ([place]) and central scheduling ([place]). Patient [...] in scheduling 1 unit PRBC transfusion at [facility] MTU. With T&S please fax order for patient to have ferritin and iron screen drawn prior to transfusion. Orders placed. Repeat CBCd in one week. documented in this encounter Plan of Treatment Upcoming Encounters Date Type Department Care Team (Late st Contact Info) Description 02/24/2024 10:45 AM EDT Imaging Radiology [address] [place] [address] 03/03/2024 8:40 AM EDT Laboratory Lab Mobile Phlebotomy [facility] [address] [place] [address] [facility] Mobile Home Draw [address] [place] [address] 03/13/2024 2:00 PM EDT Office Visit Dermatology [facility] [address] [facility] [place] [address] Francisco Watson MD [address] [place] [address] 03/17/2024 8:40 AM EDT Laboratory Lab Mobile Phlebotomy [facility] [address] [place] [address] [facility] Draw [address] [place] [address] 03/18/2024 11:00 AM EDT Office Visit Urology, [facility] [address] [facility] [address] Frank Peraza MD [address] [address] 03/24/2024 2:30 PM EDT Office Visit Hematology/Oncology [facility] [address] [place] [address] Ayaka Tatum CRNP [address] [place] [address] 03/30/2024 12:00 PM EDT Office Visit Family Practice [facility] [address] [place] [address] Kristen Vences DO [address] [facility] [place] [address] 03/31/2024 8:40 AM EDT Laboratory Lab Mobile Phlebotomy [facility] [address] [place] [address] [facility] Home Draw [address] [place] [address] 04/07/2024 10:00 AM EDT Office Visit Gastroenterology, [facility] [address] [place] [address] Lamar Tatum CRNP [address] [facility] [place] [address] 04/14/2024 8:40 AM EDT Laboratory Lab Mobile Phlebotomy [facility] [address] [place] [address] [facility] Draw [address] [place] [address] 04/28/2024 8:40 AM EDT Laboratory Lab Mobile Phlebotomy [facility] [address] [place] [address] [facility] [address] [place] [address] 05/12/2024 8:40 AM EDT Laboratory Lab Mobile Phlebotomy [facility] [address] [place] [address] [facility] [address] [place] [address] 05/26/2024 8:40 AM EDT Laboratory Lab Mobile Phlebotomy [facility] [address] [place] [address] [facility] [address] [place] [address] 06/09/2024 8:40 AM EDT Laboratory Lab Mobile Phlebotomy [facility] [address] [place] [address] [facility] [address] [place] [address] 06/23/2024 8:40 AM EDT Laboratory Lab Mobile Phlebotomy [facility] [address] [place] [address] [facility] [address] [place] [address] 07/07/2024 8:40 AM EDT Laboratory Lab Mobile Phlebotomy [facility] [address] [place] [address] [facility] [address] [place] [address] 07/21/2024 8:40 AM EDT Laboratory Lab Mobile Phlebotomy [facility] [address] [place] [address] [facility] Draw [address] [place] [address] 08/04/2024 8:40 AM EDT Laboratory Lab Mobile Phlebotomy [facility] [address] [place] [address] [facility] Draw [address] [place] [address] 08/18/2024 8:40 AM EDT Laboratory Lab Mobile Phlebotomy [facility] [address] [place] [address] [facility] Draw [address] [place] [address] 08/20/2024 10:15 AM EDT Office Visit Ophthalmology, [address] [address] Cody Gonzalez DO [address] [place] [address] 09/01/2024 8:40 AM EDT Laboratory Lab Mobile Phlebotomy [facility] [address] [place] [address] [facility] Draw [address] [place] [address] 09/15/2024 8:40 AM EDT Laboratory Lab Mobile Phlebotomy [facility] [address] [place] [address] [facility] Draw [address] [place], [place] [id number] Scheduled Orders Name Type Priority Associated Diagnoses [...] Additional history exists CKD PHOS USE SMARTSET 66439 01/28/202401/03, 07/26/2022, 12/05/2021, Additional history exists Diabetic Foot Exam 03/06/2024 03/06/2023, 0 01/03/2022, 03/02/2021, Additional history exists HbA1c 05/28/2024 11/27/2023, 05/03, 01/28/2023, Additional history exists Albumin/Creatinine Ratio 07/12/2024 023, 10/01/2022, 09/11/2021, Additional history exists COLONOSCOPY-ANNUAL AGES 18-100 08/09/2024 08/09/2023, 11/07/2022, 11/07/2022, Additional history exists GFR 08/15/2024 02/13/2024, 01/03, 01/17/2024, Additional history exists CKD HGB USE SMARTSET 35665 02/17/202502/17, 02/18/2024, 02/13/2024, Additional history exists Lipid [...] this encounter Medical Devices Implanted Type Area Take Up Operator Device Identifier Shelf Expiration Date Model / Serial / Lot Clareon Iol Aspheric Hydrophobic Acrylic Iol Implanted:Qty: 1 on 04/23/2023 by Cody Gonzalez DO at OR [facility] Lens Left: Eye 11/12/2025 [id number] / [id number] / Viatorr Tips Endoprosthesis 8-10 Mm X 8cm / 2cm Implanted:Qty: 1 on 10/07/2020 by Go Alvarado MD at [facility] Right: Abdomen 03/03/2023 [id number] / / [id number] Description:Viatorr TIPS End oprosthesis 8-10 mm x 8cm / 2cm, Manufactored by [employer] Syr Pf 2ml Embospheres 100-300 - [id number] Implanted:Qty: 1 on 04/18/2021 by Kevin Lim DO at OR [facility] Left: Abdomen [employer] [id number] 11/25/2023 [id number] / / [id number] Lipiodol Injection - [id number] Implanted:Qty: 1 on 03/28/2022 at [facility] [employer] 03/01/2023 [id number] 12-03 / [id number] Syr Pf 2ml [facility] 100-300 - [id number] Implanted:Qty: 1 on 03/28/2022 at [facility] [employer] [id number] 08/31/2024 S220 / / [id number] Clareon Iol Aspheric Hydrophobic Acrylic Iol Implanted:Qty: 1 on 04/02/2023 by Cody Gonzalez DO at OR [facility] Right: Eye JAZMIN 11/12/2025 [id number] / [id number] / documented as of this encounter Visit Diagnoses Diagnosis Iron deficiency anemia, unspecified iron deficiency anemia type- Primary documented in this encounter Advance Directives Documents on File Type Date Recorded Patient Inspector Canned Food Reconditioning Expl anation Advance Directives and Living Will 12/11/2022 ADVANCE DIRECTIVE / LIVING WILL LIVING WILL Power of Airplane Charter Clerk 12/11/2022 POWER OF A TTORNEY Latest [...] the patient have Health Care Power of Airplane Charter Clerk? No Care Teams Model Dresser Relationship Specialty Start Date End Date Francisco Cisse MD [address] [place] [address] PCP - General Internal Medicine 09/04/21 documented as of this encounter
[2024-02-22] MEDS: MAGNESIUM SULFATE / D5W 1 GM/100 ML BAG IV SCH (08:58)
[2024-02-22 11:29] VITALS: RESP 16; O2SAT 93
--- NOTE | 2024-02-22 12:10 | Discharge Summary ---
Date of Service February 22, 2024 Admission HPI Per Admitting Provider This is a 73-year-old male with PMH of type 2 diabetes, restrictive lung disease, hyperlipidemia, chronic gout, pulmonary hypertension, gout, esophageal varices, portal vein thrombosis, prolonged QT, mild mitral regurgitation, aortic valve sclerosis, cirrhosis of liver status post TIPS, GERD, hepatocellular carcinoma s/p embolization, prostate cancer s/p radiation, radiation proctitis, protein calorie malnutrition, chronic kidney stage III, history of gross hematuria, acquired thrombocytopenia, iron deficiency anemia, CKD stage III, pancytopenia, psoriasis and presents with ongoing hematuria. Has been admitted i n Jan and January (most recently from 02/02-) for worsening anemia in setting of hematuria, radiation proctitis and has received blood transfusions. Patient presented again on 02/12 in ED and underwent bladder irrigation with urology. Has not had mendoza in place for the past week. Primary urologist is Dr. Peraza. Patient was due for blood transfusion in [facility] this morning but was afraid there would not be enough medical care if he had an episode of urinary incontinence and decided to present to ED instead. Denies any other acute or different symptoms. Has been urinating with presence of blood clots. Not sure he is completely voiding but has increased bladder pressure with standing. Has some urinary incontinence with bleeding but that is not new. Denies any F/C, lightheadedness, CP, SOB, N/V, abd pain, dysuria, diarrhea or constipation. 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 Primary urologist is Dr. Peraza. Admission Exam Per Admitting Provider GENERAL APPEARANCE: AxOx4,tired appearing gentleman , no acute distress. HEENT: NC, AT. MMM. EOMI, clear conjunctiva, oropharynx clear. NECK: Supple without lymphadenopathy. No stiffness or restricted ROM. HEART: Normal rate and regular rhythm, WINTER+ LUNGS: CTAB, moving air well. No crackles or wheezes are heard. ABDOMEN: Soft, nontender, mildly protuberant BACK: No CVAT, no obvious deformity. EXTREMITIES: Without cyanosis, clubbing or edema. NEUROLOGICAL: Grossly nonfocal. Alert and oriented, moving all 4 extremities. CN not formally tested but appear grossly intact Skin: Warm and dry without any rash. Principal Diagnosis Hematuria Complicated UTI History of BPH/prostate cancer status post radiation History of radiation cystitis Discharge Exam GENERAL APPEARANCE: AxOx4,tired appearing gentleman , no acute distress. HEENT: NC, AT. MMM. EOMI, clear conjunctiva, oropharynx clear. NECK: Supple without lymphadenopathy. No stiffness or restricted ROM. HEART: Normal rate and regular rhythm, WINTER+ LUNGS: CTAB, moving air well. No crackles or wheezes are heard. ABDOMEN: Soft, nontender, mildly protuberant BACK: No CVAT, no obvious deformity. EXTREMITIES: Without cyanosis, clubbing or edema. NEUROLOGICAL: Grossly nonfocal. Alert and oriented, moving all 4 extremities. CN not formally tested but appear grossly intact Skin: Warm and dry without any rash. Discharge Data Allergies Allergy/AdvReac Type Severity Reaction Status Date / Time No Known Allergies Allergy Mild Verified 02/20/24 09:25 Consultations 02/20/24 08:46 ED Decision to Admit Stat 02/20/24 12:07 Consult Urology Routine Hospital Course (1) Cystitis, radiation: (2) Hematuria: (3) Anemia: (4) 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: (5) Depression: (6) Prostate cancer: (7) CKD (chronic kidney disease) stage 3, GFR 30-59 ml/min: (8) Insulin dependent type 2 diabetes mellitus: Plan 73-year-old male with PMH of type 2 diabetes, restrictive lung disease, hyperlipidemia, chronic gout, pulmonary hypertension, gout, esophageal varices, portal vein thrombosis, prolonged QT, mild mitral regurgitation, aortic valve sclerosis, cirrhosis of liver status post TIPS, GERD, hepatocellular carcinoma s/p embolization, prostate cancer s/p radiation, radiation proctitis, protein calorie malnutrition, chronic kidney stage III, history of gross hematuria, acquired thrombocytopenia, iron deficiency anemia, CKD stage III, pancytopenia, psoriasis and presents with ongoing hematuria. Has been admitted in Jan and January (most recently from 02/02-) for worsening anemia in setting of hematuria, radiation proctitis and has received blood transfusions. Patient presented again on 02/12 in ED and underwent bladder irrigation with urology. 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 Primary urologist is Dr. Peraza. Due for [facility] on the day of admission but decided to present to ED instead. He was managed for the following: Hematuria BPH/prostate cancer status post radiation H/o radiation cystitis Afebrile, hemodynamically stable Hemoglobin close to baseline at 7.3 (at presentation) despite chronic hematuria Removed Mendoza at home since last seen due to discomfort. see above. Transfusion 1 unit PRBCs on admitting day Appreciate urology recs - f/u w/ uro as OP. Patient reports being able to pass urine more easily, reports no lower abdominal discomfort, reports urine getting diamond cleaver in color and clots getting smaller. Patient feels comfortable going home and would like to go home. ?UTI: pt w/ hematuria but chronic problem. UCX growing GNB, will start rocephin, follow Cx. Will change to p.o. antibiotic on discharge. Patient to follow-up with PCP office for final results of urine culture within a week time. CKD III Cr at baseline 1.. Continue to monitor 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 Hepatocellular carcinoma status post IR embolization History GAVE/esophageal varices/portal hypertensive gastropathy/radiation proctitis/diverticulosis on endoscopy Appears euvolemic today Continue home Lasix, lactulose and Xifaxan and Protonix DM II A1c of 5.03 November 2023, repeat tomorrow Hold home agents SSI while in-patient BSG AC HS DVT Ppx: SCDs given hematuria Code status: FULL PCP: Tanna Patient is being discharged to home with following instruction at the point of discharge: Follow-up with your primary care physician within a week time and likely you will need labs CBC/CMP/magnesium/phosphorus. You are diagnosed with UTI, you will be discharged on antibiotic to complete the course. Please follow-up on the final results of urine culture with your PCP office within a week time to make sure that you are receiving appropriate antibiotic treatment. Follow-up with your nephrology as prior. Closely follow-up with your urology within a week time upon discharge. Follow up with your GI doctor as prior. You will need frequent ultrasound abdomen every few weeks time, and further evaluation for need for paracentesis based on your clinical evaluation at the time. Coordinate with your PCP office to set up the test. Take your medications as prescribed. Please make sure that you are able to get your medications today by calling your pharmacy before you leave the hospital so that your treatment continuity is not broken. Home Health Attestation I certify that this patient is under my care and that I, or a physicians delinquent tax collector assistant working with me, had a face to-face encounter that meets the home health [id number]-lu-[id number] encounter requirements with this patient. The encounter with the patient was in whole, or in part, for the following medical condition, which is the primary reason for home health care (list medical condition): I certify that, based on my findings, the following services are medically necessary home health services: My clinical findings support the need for the above services because: Further, I certify that my clinical findings support that this patient is homebound (i.e. absences from home require considerable and taxing effort and are for medical reasons or religion services or infrequently or of short duration when for other reasons) because: Certification for Home Health Services: Based on the above findings, I certify that this patient is confined to the home and needs intermittent mcc care, physical therapy and/or speech therapy or continues to need occupational therapy. The patient is under my care, and I have initiated the establishment of the plan of care. This patient will be followed by a physician who will periodically review the plan of care. Total Time Total Time Spent Total Time Spent (In Minutes): 45 Discharge Plan Discharge Items Patient Disposition: Home - Home Health Services Reason For Visit: HEMATURIA Discharge Diagnosis: Hematuria Complicated UTI History of BPH/prostate cancer status post radiation History of radiation cystitis Activity: Resume your previous activity Non-emergency contact: Primary Care Provider Call non-emergency contact if: you have any medication questions, your symptoms worsen and your temperature is above 101.5 Follow-up/Referrals: Francisco Cisse MD [Primary Care Provider] - (Date & Time 02/26/2024 11:20 AM Provider Francisco Cisse MD Department General Internal Medicine [facility] ) Diet: Carb Consistent or DM2, Heart Healthy and Low Sodium (2gm) Addtl Attending Provider Instructions: Follow-up with your primary care physician within a week time and likely you will need labs CBC/CMP/magnesium/phosphorus. You are diagnosed with UTI, you will be discharged on antibiotic to complete the course. Please follow-up on the final results of urine culture with your PCP office within a week time to make sure that you are receiving appropriate antibiotic treatment. Follow-up with your nephrology as prior. Closely follow-up with your urology within a week time upon discharge. Follow up with your GI doctor as prior. You will need frequent ultrasound abdomen every few weeks time, and further e valuation for need for paracentesis based on your clinical evaluation at the time. Coordinate with your PCP office to set up the test. Take your medications as prescribed. Please make sure that you are able to get your medications today by calling your pharmacy before you leave the hospital so that your treatment continuity is not broken. Pending Studies at Discharge: Yes Stand-Alone Forms: My [facility] [employer], Smoking Cessation Medications and DC Order Prescriptions: New Mag 64 64 mg Tablet,Delayed Release (Dr/Ec) 64 mg PO QAM Qty: 30 0RF cefdinir 300 mg capsule 300 mg PO BID 7 Days Qty: 14 0RF Continued allopurinol 100 mg Tablet 100 mg PO QAM furosemide [Lasix] 20 mg Tablet 40 mg PO QAM acetaminophen [Tylenol] 325 mg Tablet 650 mg PO Q8H PRN (Reason: Fever Or Pain) ferrous sulfate [iron] 325 mg (65 mg iron) Tablet 650 mg PO QAM acetylcysteine 600 mg Capsule 1,200 mg PO QAM Men's 50 Plus Multivitamin 400-20-370 mcg Tablet 1 tab PO DAILY Rx Instructions: Unable to verify OTC meds with patient at this date/time. Probiotic 5 billion cell Capsule, Sprinkle 1 cap PO QAM finasteride 5 mg Tablet 5 mg PO QAM insulin glargine [Lantus U-100 Insulin] 100 unit/mL solution 27 unit subcut QPM zinc gluconate 50 mg Tablet 0 mg PO DAILY Rx Instructions: Unable to verify OTC meds with patient at this date/time. tramadol 50 mg tablet 50 mg PO Q6 PRN (Reason: pain,severe) pantoprazole 40 mg tablet,delayed release (DR/EC) 40 mg PO AMPM duloxetine 30 mg capsule,delayed release(DR/EC) 30 mg PO QAM Xifaxan 550 mg tablet 550 mg PO AMHS oxybutynin chloride 5 mg Tablet 5 mg PO BID Qty: 60 0RF metoclopramide HCl 5 mg tablet 5 mg PO TID PRN (Reason: Nausea And Vomiting) lactulose 10 gram/15 mL solution 10 g PO BID mirtazapine 30 mg tablet 30 mg PO HS Admission Data Admit Date/Time: 02/20/24 10:34 Attending Provider: Dangelo George Admit Provider: Ale Velazquez Primary Care Provider: Francisco Cisse Other Providers: Ale Velazquez; Zane Salas
--- OUTSIDE RECORDS SUMMARY | 2024-02-22 13:09 | External Medical Summary | Summary of Care ---
Author Name Unknown Organization [facility] Address [address] [place] [address] Phone [phone] Care Team Providers Care Hl7 Developer Name Role Phone Francisco Cisse MD Primary Care Provider + Reason for Visit * Reason Onset Date Comments Advice 02/21/2024 Encounter Details Date Type Department Care Team (Late st Contact Info) Description 02/21/2024 Telephone Access Center, [address] [place] [address] [facility] *DO NOT REMOVE THIS DEPARTMENT* [place] [address] Services, Scheduling [address] [place] [address] Advice Allergies No known active allergiesdocumented as of this encounter (statuses as of 02/21/2024) Medications Medication Sig Dispensed Refills Start Date End Date Status Tylenol 325 MG Oral Capsule (Acetaminophen) Take 650 mg by mouth every 8 hours as needed for Pain (fever). 0 Active EasyLinkTouch Verio In Vitro Strip (Glucose Blood)Indications:Ty pe [...] mRNA, LNP-s, No Pre serve, 2-Dose Series (Ak[employer]o) 03/08/2021,02/15/2021 HepA Inact/HepB Recomb>=18yrs old 12/04/2019,04/2019,05/20/2019 11/19/2019 PPD 06/18/2017, 3,01/09/2012,06/2011 Pneumococcal Conjugate Vacc, 13 Valent (Prevnar) 05/01/2017 Pneumococcal Polysaccharide PPV23 (Pneumovax) 08/28/2022,10/25/2015,07/14/2012 Season Influenza, Quad, PF, Adjuvanted, 65+ Yrs, IM (FLUAD) 10/07/2020(Deferred: Patient Refused - pt says he already had his shot last [facility] made aware) Seasonal Influenza [...] Telephone Encounter - Josephine Murphy RN - 02/21/2024 3:20 PM EDT Hem/ onc would not be advising on hyperbaric therapy for wound care. Per TE 02/20/24, they are looking for clearance from pulmonary due to patients history of restrictive pulmonary lung disease. They are already discussing this with PCP's office to get referral. * Telephone Encounter - Sonali Gould LPN - 02/21/2024 3:03 PM EDT Pt wound nurse asking" is there any contraindication for this pt to receive hyperbaric oxygen therapy" Lamar? Any issues with this? I advised sofya - the wound nurse to contact dr jc's office and ask them, since he would be the one ordering his therapy for his hepatocellular carcinoma. * Telephone Encounter - Queta Berrios OSA - 02/21/2024 9:42 AM EDT Please call Priscilla at [phone] regarding questions regarding patient tolerance to Hyperbaric Oxygen Therapy, Unable to transfer to nurse line documented in this encounter Plan of Treatment Upcoming Encounters Date Type Department Care Team (Late st Contact Info) Description 02/24/2024 10:45 AM EDT Imaging Radiology [address] [place] [address] 02/26/2024 11:20 AM EDT Office Visit General Internal Medicine [facility] [address] [facility] [place] [address] Francisco Cisse MD [address] [facility] [place] [address] 03/03/2024 8:40 AM EDT Laboratory Lab Mobile Phlebotomy [facility] [address] [place] [address] [facility] Draw [address] [place] [address] 03/13/2024 2:00 PM EDT Office Visit Dermatology [facility] [address] [facility] [place] [address] Francisco Watson MD [address] [facility] [place] [address] 03/17/2024 8:40 AM EDT Laboratory Lab Mobile Phlebotomy [facility] [address] [place] [address] [facility] Draw [address] [place] [address] 03/18/2024 11:00 AM EDT Office Visit Urology, [facility] [address] [facility] [place] [address] Frank Peraza MD [address] [place] [address] 03/24/2024 2:30 PM EDT Office Visit Hematology/Oncology [facility] [address] [place] [address] Ayaka Tatum CRNP [address] [place] [address] 03/30/2024 12:00 PM EDT Office Visit Family Practice [facility] [address] [place] [address] Kristen Vences DO [address] [place] [address] 03/31/2024 8:40 AM EDT Laboratory Lab Mobile Phlebotomy [facility] [address] [place] [address] [facility] Draw [address] [place] [address] 04/07/2024 10:00 AM EDT Office Visit Gastroenterology, [facility] [address] [place] [address] Lamar Tatum CRNP [address] [place] [address] 04/14/2024 8:40 AM EDT Laboratory Lab Mobile Phlebotomy [facility] [address] [place] [address] [facility] Mobile Home Draw [address] [place] [address] 04/28/2024 8:40 AM EDT Laboratory Lab Mobile Phlebotomy [facility] [address] [place] [address] [facility] [address] [place] [address] 05/12/2024 8:40 AM EDT Laboratory Lab Mobile Phlebotomy [facility] [address] [place] [address] [facility] [address] [place] [address] 05/26/2024 8:40 AM EDT Laboratory Lab Mobile Phlebotomy [facility] [address] [place] [address] [facility] [address] [place] [address] 06/09/2024 8:40 AM EDT Laboratory Lab Mobile Phlebotomy [facility] [address] [place] [address] [facility] [address] [place] [address] 06/23/2024 8:40 AM EDT Laboratory Lab Mobile Phlebotomy [facility] [address] [place] [address] [facility] [address] [place] [address] 07/07/2024 8:40 AM EDT Laboratory Lab Mobile Phlebotomy [facility] [address] [place] [address] [facility] [address] [place] [address] 07/21/2024 8:40 AM EDT Laboratory Lab Mobile Phlebotomy [facility] [address] [place] [address] [facility] [address] [place] [address] 08/04/2024 8:40 AM EDT Laboratory Lab Mobile Phlebotomy [facility] [address] [place] [address] [facility] [address] [place] [address] 08/18/2024 8:40 AM EDT Laboratory Lab Mobile Phlebotomy [facility] [address] [place] [address] [facility] Draw [address] [place] [address] 08/20/2024 10:15 AM EDT Office Visit Ophthalmology, [facility] [address] [place] [address] Cody Gonzalez DO [address] [place] [address] 09/01/2024 8:40 AM EDT Laboratory Lab Mobile Phlebotomy [facility] [address] [place] [address] [facility] [address] [place] [address] 09/15/2024 8:40 AM EDT Laboratory Lab Mobile Phlebotomy [facility] [address] [place] [address] [facility] [address] [place] [address] Scheduled Procedures Name Priority Associated Diagnoses Date/Ti [...] Additional history exists CKD PHOS USE SMARTSET 66418 01/28/2024 02/2 06/2023, 07/26/2022, 12/05/2021, Additional history exists Diabetic Foot Exam 03/06/2024 03/06/2023, 0 01/03/2022, 03/02/2021, Additional history exists HbA1c 05/28/2024 11/27/2023, 05/03, 01/28/2023, Additional history exists Albumin/Creatinine Ratio 07/12/2024 023, 10/01/2022, 09/11/2021, Additional history exists COLONOSCOPY-ANNUAL AGES 18-100 08/09/2024 08/09/2023, 11/07/2022, 11/07/2022, Additional history exists GFR 08/15/2024 02/13/2024, 01/03, 01/17/2024, Additional history exists CKD HGB USE SMARTSET 33712 02/17/202502/17, 02/18/2024, 02/13/2024, Additional history exists Lipid [...] encounter Medical Devices Implanted Type Area Automobile Parts Assembler Device Identifier Shelf Expiration Date Model / Serial / Lot Clareon Iol Aspheric Hydrophobic Acrylic Iol Implanted:Qty: 1 on 04/23/2023 by oCdy Gonzalez DO at [place] [facility] Lens Left: Eye 11/12/2025 [id number] / [id number] / Viatorr Tips Endoprosthesis 8-10 Mm X 8cm / 2cm Implanted:Qty: 1 on 10/07/2020 by Go Alvarado MD at [facility] Right: Abdomen 03/03/2023 [id number] / / [id number] Description:Viatorr TIPS End oprosthesis 8-10 mm x 8cm / 2cm, Manufactored by [employer] Syr Pf 2ml Embospheres 100-300 - [id number] Implanted:Qty: 1 on 04/18/2021 by Kevin Lim DO at OR [facility] Left: Abdomen [employer] [id number] 11/25/2023 [id number] / / [id number] Lipiodol Injection - [id number] Implanted:Qty: 1 on 03/28/2022 at [facility] [employer] 03/01/2023 [id number] / / [id number] Syr Pf 2ml Embospheres 100-300 - [id number] Implanted:Qty: 1 on 03/28/2022 at [facility] [employer] [id number] 08/31/2024 S220GH / / [id number] -[id number] Clareon Iol Aspheric Hydrophobic Acrylic Iol Implanted:Qty: 1 on 04/02/2023 by Cody Gonzalez DO at OR [facility] Right: Eye JAZMIN 11/12/2025 CNA0T0 / [id number] / documented as of this encounter Advance Directives Documents on File Type Date Recorded Patient Panel Raiser Operator Expl anation Advance Directives and Living Will 12/11/2022 ADVANCE DIRECTIVE / LIVING WILL LIVING WILL Power of Fur Glosser 12/11/2022 POWER OF A TTORNEY Latest Code [...] the patient have Health Care Power of Fur Glosser? No Care Teams Hl7 Developer Relationship Specialty Start Date End Date Francisco Cisse MD [address] [facility] [place], [place] [address] PCP - General Internal Medicine 09/04/21 documented as of this encounter
--- OUTSIDE RECORDS SUMMARY | 2024-02-22 13:09 | External Medical Summary | Summary of Care ---
Author Name Unknown Organization [facility] Address [address] [place] [address] Phone [phone] Care Team Providers Care Probation And Parole Officer Name Role Phone Francisco Cisse MD Primary Care Provider + Reason for Visit * Reason Onset Date Comments Order Request 02/19/2024 Keyla Encounter Details Date Type Department Care Team (Late st Contact Info) Description 02/19/2024 Telephone Access Center, [place] [address] [facility] *DO NOT REMOVE THIS DEPARTMENT* [place] [address] Services, Scheduling [address] [place] [address] Order Request (Keyla) Allergies No known active allergiesdocumented as of [...] mRNA, LNP-s, No Pre serve, 2-Dose Series ([employer]) 03/08/2021,02/15/2021 HepA Inact/HepB Recomb>=18yrs old 12/04/2019,04/2019,05/20/2019 11/19/2019 [...] encounter Miscellaneous Notes * Telephone Encounter - Aspen De Santiago OSA - 02/19/2024 8:37 AM EDT Pt calling states that he is peeing alot of blood since his bladder was cauterized, states his hemoglobin is 7 and is sure its still falling as he is urinating alot of blood asking for a transfusion to be ordered. documented in this encounter Plan of Treatment Upcoming Encounters Date Type Department Care Team (Late st Contact Info) Description 02/24/2024 10:45 AM EDT Imaging [facility] [address] [place] [address] 02/26/2024 11:20 AM EDT Office Visit General Internal Medicine George Blankenship [place] [address] [place] [address] rFancisco Cisse MD [address] [place] [address] [place] [address] 03/03/2024 8:40 AM EDT Laboratory Lab Mobile Phlebotomy [facility] [address] [place] [address] [facility] Draw [address] [place] [address] 03/13/2024 2:00 PM EDT Office Visit Dermatology [facility] [address] [place] [address] Francisco Watson MD [address] [place] [address] 03/17/2024 8:40 AM EDT Laboratory Lab Mobile Phlebotomy [facility] [address] [place] [address] [facility] Draw [address] [place] [address] 03/18/2024 11:00 AM EDT Office Visit Urology, [facility] [address] [facility] [place] [address] Frank Peraza MD [address] [place] [address] 03/24/2024 2:30 PM EDT Office Visit Hematology/Oncology [facility] [address] [place] [id number] Ayaka Tatum CRNP [address] [place] [address] 03/30/2024 12:00 PM EDT Office Visit Family Practice [facility] [address] [facility] [place] [address] Kristen Vences DO [address] [facility] [place] [address] 03/31/2024 8:40 AM EDT Laboratory Lab Mobile Phlebotomy [facility] [address] [place] [address] [facility] Mobile [facility] Draw [address] [place] [address] 04/07/2024 10:00 AM EDT Office Visit Gastroenterology, [facility] [address] [place] [address] Lamar Tatum CRNP [address] [place] [address] 04/14/2024 8:40 AM EDT Laboratory Lab Mobile Phlebotomy [facility] [address] [place] [address] [facility] Draw [address] [place] [address] 04/28/2024 8:40 AM EDT Laboratory Lab Mobile Phlebotomy [facility] [address] [place] [address] [facility] Draw [address] [place] [address] 05/12/2024 8:40 AM EDT Laboratory Lab Mobile Phlebotomy [facility] [address] [place] [address] [facility] Draw [address] [place] [address] 05/26/2024 8:40 AM EDT Laboratory Lab Mobile Phlebotomy [facility] [address] [place] [address] [facility] Draw [address] [place] [address] 06/09/2024 8:40 AM EDT Laboratory Lab Mobile Phlebotomy [facility] [address] [place] [address] [facility] Draw [address] [place] [address] 06/23/2024 8:40 AM EDT Laboratory Lab Mobile Phlebotomy [facility] [address] [place] [address] [facility] [address] [place] [address] 07/07/2024 8:40 AM EDT Laboratory Lab Mobile Phlebot[facility] [address] [place] [address] [facility] Draw [address] [place] [address] 07/21/2024 8:40 AM EDT Laboratory Lab Mobile Phlebotomy [facility] [address] [place] [address] [facility] Draw [address] [place] [address] 08/04/2024 8:40 AM EDT Laboratory Lab Mobile Phlebotomy [facility] [address] [place] [address] [facility] Draw [address] [place] [address] 08/18/2024 8:40 AM EDT Laboratory Lab Mobile Phlebotomy [facility] [address] [place] [address] [facility] Draw [address] [place] [address] 08/20/2024 10:15 AM EDT Office Visit Ophthalmology, [facility] [address] [place] [address] Cody Gonzalez DO [facility] [place] [address] 09/01/2024 8:40 AM EDT Laboratory Lab Mobile Phlebotomy [facility] [address] [place] [address] [facility] Draw [address] [place] [address] 09/15/2024 8:40 AM EDT Laboratory Lab Mobile Phlebotomy [facility] [address] [place] [address] [facility] [address] [place] [address] Scheduled Procedures Name Priority Associated Diagnoses Date/Ti [...] Additional history exists CKD PHOS USE SMARTSET 79624 01/28/202401/03, 07/26/2022, 12/05/2021, Additional history exists Diabetic Foot Exam 03/06/2024 03/06/2023, 0 01/03/2022, 03/02/2021, Additional history exists HbA1c 05/28/2024 11/27/2023, 05/03, 01/28/2023, Additional history exists Albumin/Creatinine Ratio 07/12/2024 023, 10/01/2022, 09/11/2021, Additional history exists COLONOSCOPY-ANNUAL AGES 18-100 08/09/2024 08/09/2023, 11/07/2022, 11/07/2022, Additional history exists GFR 08/15/2024 02/13/2024, 01/03, 01/17/2024, Additional history exists CKD HGB USE SMARTSET 59297 02/17/202502/17, 02/18/2024, 02/13/2024, Additional history exists Lipid [...] encounter Medical Devices Implanted Type Area Senior Contracts Administrator Device Identifier Shelf Expiration Date Model / Serial / Lot Clareon Iol Aspheric Hydrophobic Acrylic Iol Implanted:Qty: 1 on 04/23/2023 by Cody Gonzalez DO at OR [facility] Lens Left: Eye 11/12/2025 [id number] / [id number] / Viatorr Tips Endoprosthesis 8-10 Mm X 8cm / 2cm Implanted:Qty: 1 on 10/07/2020 by Go Alvarado MD at [facility] Right: Abdomen 03/03/2023 [id number] / / [id number] Description:Viatorr TIPS End oprosthesis 8-10 mm x 8cm / 2cm, Manufactored by [employer] Syr Pf 2ml Embospheres 100-300 - [id number] Implanted:Qty: 1 on 04/18/2021 by Kevin Lim DO at OR [facility] Left: Abdomen [employer] [id number] 11/25/2023 [id number] / / [id number] Lipiodol Injection - [id number] Implanted:Qty: 1 on 03/28/2022 at [facility] [employer] 03/01/2023 [id number] 01-2 / / [id number] Syr Pf 2ml Embospheres 100-300 - [id number] Implanted:Qty: 1 on 03/28/2022 at [facility] [employer] [id number] 08/31/2024 S220 / / [id number] Clareon Iol Aspheric Hydrophobic Acrylic Iol Implanted:Qty: 1 on 04/02/2023 by Cody Gonzalez DO at [facility] Right: Eye JAZMIN 11/12/2025 CNA0T0 / [id number] / documented as of this encounter Advance Directives Documents on File Type Date Recorded Patient Pensionholder Information Clerk Expl anation Advance Directives and Living Will 12/11/2022 ADVANCE DIRECTIVE / LIVING WILL LIVING WILL Power of Carroting Machine Operator 12/11/2022 POWER OF A TTORNEY [...] the patient have Health Care Power of Carroting Machine Operator? No Care Teams Probation And Parole Officer Relationship Specialty Start Date End Date Francisco Cisse MD [address] [place] [address] PCP - General Internal Medicine 09/04/21 documented as of this encounter
[2024-02-22 15:28] VITALS: BP 110/51; PULSE 68; TEMP 97.5
[2024-02-23] MEDS ORDERED: MAGNESIUM CHLORIDE W/CALCIUM 64MG DELAYED REL TAB PO SCH (09:00)
== END 2024-02-22 16:31 | disposition home health service (06) ==
LOC: ED 05:48 → EDINP 05:48 → SUATTDRO 10:34 → 2W 11:37

== ENCOUNTER 2024-03-19 15:18 | Observation (INO) ==
[2024-03-19 15:32] VITALS: TEMP 98.1
[2024-03-19] MEDS: SODIUM CHLORIDE 0.9% 500 ML IV STA (16:20)
--- NOTE | 2024-03-19 16:35 | Emergency Department Note ---
Impression & Plan Left sided abdominal pain, Anemia, Hematuria, Diarrhea, UTI (urinary tract infection) ED Provider Note NAME: MERRITT TAPIA AGE: 73 SEX: M : 1950 ARRIVES VIA: Ambulance INFORMANT: [Patient] ED PROVIDER(S): [Scott Huynh MD] CHIEF COMPLAINT: Abdominal pain HISTORY OF PRESENT ILLNESS: The patient is a 73-year-old male with liver disease. He states that earlier today, he had a paracentesis and they removed 4.7 L of fluid. The access was from the right side. On his way home from the procedure, he developed some left-sided abdominal pain and diarrhea. He states the pain in the abdomen is relieved if he lays on his left side but present if he tries to lay flat or on his right. Diarrhea is not bloody or black but just loose and watery. As per EMS, blood sugar was 386. The patient denies nausea or vomiting. There has been no cough or congestion or fever. No bad food eaten, no sick contacts. PMHx/PSHx/Social Hx: See Below PHYSICAL EXAM: GENERAL: Patient is in no acute distress. HEENT: No acute trauma, normocephalic atraumatic, mucous membranes moist, no nasal congestion. NECK: No stridor, no adenopathy, no meningismus, trachea is midline. LUNGS: Clear to auscultation bilaterally, no wheeze, no rhonchi, breath sounds equal. HEART: 2/6 systolic murmur, regular rate and rhythm. ABDOMEN: Soft, nontender, no peritonitis. Bowel sounds appear hyperactive. EXTREMITIES: No cyanosis, full range of motion of all the joints without pain or difficulty. NEUROLOGIC: Oriented x 3, no acute motor or sensory deficits, no focal weakness. SKIN: No jaundice, no diaphoresis. He does have a an erythematous, dry/flaky psoriasis rash across the body. Rectal: Brown stool, trace heme positive. DIFFERENTIAL DIAGNOSIS: Foodborne or viral illness, diverticulitis or colitis, dehydration, electrolyte imbalance, bowel perforation, or free air, among others. EMERGENCY DEPARTMENT PROCEDURES: MEDICAL DECISION MAKING: There is no leukocytosis, platelet count was low, the patient has a history of thrombocytopenia. Hemoglobin was low at 6.9, this is below his typical baseline. INR is slightly high at 1.2. No renal failure. Magnesium and calcium were both low. There were some liver enzyme elevations consistent with his history of liver disease. Ammonia level was slightly elevated, consistent with his liver disease. No evidence for pancreatitis by our testing. Urinalysis showed hematuria and potential infection. Bacteria was seen. Abdominal and pelvis CT showed some ascites, no acute surgical process, no free air. The patient received IV saline, 500 cc. He was given IV magnesium. He received IV ceftriaxone as antibiotic coverage. He was ordered for 1 unit of packed red blood cells to be transfused. He did sign the appropriate paperwork for the transfusion. Given his findings, given his need for a packed red blood cell transfusion, given the UTI and hematuria, given his liver disease, I do think a hospital stay is warranted. I spoke with the patient and case management, the on-call hospice was consulted. Prior/Outside records/notes reviewed: Today's EMS notes describing his presentation and transport to this hospital. ECG per my interpretation: Indication was abdominal pain. The ECG shows a normal sinus rhythm with a rate of 67. There are some flattened T waves laterally. There is no acute ST elevation, no PVCs. The QTc is 515. Continuous Cardiac Monitoring per my interpretation: An order was placed for continuous cardiac monitoring. The monitor shows a rate of 67 with normal sinus rhythm. Imaging/x-ray results per my interpretation: Chronic Medical/Social conditions affecting care: Advanced age. Care/Management discussed with: Case management, the on-call hospitalist. Level of care consideration(s): After review of the information above and other included data: --I believe the patient requires escalation of care to admission Critical Care Note: I have personally spent 43 minutes of critical care time in the direct management of this patient. This includes bedside care, interpretation of diagnostic studies, and testing, discussion with consultants, patient, and family members, and other required patient management activities. This 43 minutes is in excess of all separately billable procedures. 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 Anemia of chronic disease under surveillance Prostate cancer Hx radiation History of panic attacks Gout No current issues GERD (gastroesophageal reflux disease) GAVE (gastric antral vascular ectasia) CKD (chronic kidney disease) stage 3, GFR 30-59 ml/min Hypertension Hx Esophageal varices EGD 05/22/23 ([facility]): Grade 1 varices in distal esophagus without high risk stigmata Upper GI bleed Hx Psoriasis Surgical History History of left cataract surgery History of right cataract surgery History of prostate biopsy malignant S/P TIPS (transjugular intrahepatic portosystemic shunt) History of esophagogastroduodenoscopy (EGD) Most recent 05/2023 [facility] History of colonoscopy with polypectomy History of tonsillectomy and adenoidectomy History of abdominal paracentesis Multiple, most recent 01/2023 Family History Father , "3/4 liver gone due to drinking" Colorectal cancer, Onset Age: 63 Mother Lung cancer Daughter Cancer cervical and thyroid cancers Ovarian cancer Other No family history of adverse response to anesthesia 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 Smoking Status: Never smoker Second Hand Exposure: No; Do You Dip or Chew Tobacco: No; Hx Alcohol Use: No Hx Substance Use: No Preferred Language: Italian Communication Ability: Effective Visual Impairment: No Limitations Hearing Ability: Normal Plastic Surgery Technician Required: No Beliefs That Will Affect Care: None marital status: Current Living Situation: Spouse Current Living Situation Comment: 1 level single family home 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 How many Children do You have: 6 How many Children do You have Comment: one , eldest daughter in her sleep from seizure disorder Feels Safe at Home: Yes Childhood Exposure to Second-Hand Smoke: Yes Diet Comment: "I watch my sugar, average fasting is 140 mg/dl" caffeine: Yes (cola, sugar free, decaf) during the past year weight has: remained stable Dental Care, Regularly: No Physical Activity Frequency: Does not Exercise Seatbelt Use: always Sunscreen Use: Yes Assistive Devices: Glasses and Walker Allergies Allergies Allergy/AdvReac Type Severity Reaction Status Date / Time No Known Allergies Allergy Mild Verified 03/19/24 18:15 Home Meds Home Medications Medication Instructions Recorded Confirmed allopurinol 100 mg tablet 100 mg PO QAM 05/16/20 03/19/24 finasteride 5 mg tablet 5 mg PO QAM 11/03/21 03/19/24 furosemide 20 mg tablet (Lasix) 40 mg PO QAM 11/02/22 03/19/24 insulin glargine 100 unit/mL 25 unit subcut QPM 11/05/22 03/19/24 subcutaneous solution (Lantus U-100 Insulin) Lactobacil.acidophilus-Bifido.animalis 1 cap PO QAM 05/17/23 03/19/24 5 billion cell sprinkle capsule (Probiotic) ferrous sulfate 325 mg (65 mg 650 mg PO QAM 05/17/23 03/19/24 iron) tablet (iron) pqgkxdrjrhur-tcs-dtmpl acid-vit 1 tab PO DAILY 05/17/23 03/19/24 K-lycop 400 mcg-20 mcg-370 mcg tablet (Men's 50 Plus Multivitamin) duloxetine 30 mg capsule,delayed 30 mg PO QAM 02/02/24 03/19/24 release pantoprazole 40 mg tablet,delayed 40 mg PO AMPM 02/02/24 03/19/24 release rifaximin 550 mg tablet (Xifaxan) 550 mg PO AMHS 02/02/24 03/19/24 metoclopramide HCl 5 mg tablet 5 mg PO TID PRN Nausea And Vomiting 02/20/24 03/19/24 mirtazapine 30 mg tablet 30 mg PO HS PRN Sleep 02/20/24 03/19/24 acetaminophen 500 mg tablet 1,000 mg PO BID PRN Pain 03/19/24 03/19/24 lactulose 10 gram oral packet 10 g PO BID 03/19/24 03/19/24 (Kristalose) Previous Rx's Medication Instructions Recorded oxybutynin chloride 5 mg tablet 5 mg PO BID #60 tabs 02/11/24 magnesium chloride 64 mg 64 mg PO QAM #30 tabs 02/22/24 (magnesium chloride) tablet,delayed release (Mag 64) Results & Data (ED) Vital Signs Vital Signs - 24 hr 03/19/24 15:25 03/19/24 16:08 03/19/24 16:41 Temperature 36.7 C Temperature Source Oral Pulse Rate 65 67 67 Pulse Rate from SpO2 Sensor 67 Pulse Rhythm Regular Pulse Strength Normal Respiratory Rate 19 20 28 H Respiratory Effort / Characteristics Non-Labored Respiratory Depth Normal Respiratory Pattern Regular Blood Pressure 109/53 L Blood Pressure Mean 71 Blood Pressure Position Left Lateral Pulse Oximetry 98 97 99 Oxygen Delivery Method Room Air Room Air Sepsis Recent Fever Within 48 Hours No Sepsis New/Unexplained Change in Mental Status No Sepsis Action Taken by Nursing No Action Required 03/19/24 16:55 03/19/24 17:00 03/19/24 17:10 Temperature Temperature Source Pulse Rate 68 69 Pulse Rate from SpO2 Sensor 66 68 70 Pulse Rhythm Pulse Strength Respiratory Rate 14 19 Respiratory Effort / Characteristics Respiratory Depth Respiratory Pattern Blood Pressure Blood Pressure Mean Blood Pressure Position Pulse Oximetry 100 100 98 Oxygen Delivery Method Sepsis Recent Fever Within 48 Hours Sepsis New/Unexplained Change in Mental Status Sepsis Action Taken by Nursing 03/19/24 17:20 03/19/24 17:30 03/19/24 17:40 Temperature Temperature Source Pulse Rate 67 66 65 Pulse Rate from SpO2 Sensor 67 66 65 Pulse Rhythm Pulse Strength Respiratory Rate 21 18 17 Respiratory Effort / Characteristics Respiratory Depth Respiratory Pattern Blood Pressure Blood Pressure Mean Blood Pressure Position Pulse Oximetry 97 96 95 Oxygen Delivery Method Sepsis Recent Fever Within 48 Hours Sepsis New/Unexplained Change in Mental Status Sepsis Action Taken by Nursing 03/19/24 17:43 03/19/24 17:50 03/19/24 18:00 Temperature Temperature Source Pulse Rate 67 65 65 Pulse Rate from SpO2 Sensor 65 65 Pulse Rhythm Pulse Strength Respiratory Rate 16 17 Respiratory Effort / Characteristics Respiratory Depth Respiratory Pattern Blood Pressure Blood Pressure Mean Blood Pressure Position Pulse Oximetry 96 96 Oxygen Delivery Method Sepsis Recent Fever Within 48 Hours Sepsis New/Unexplained Change in Mental Status Sepsis Action Taken by Nursing 03/19/24 18:11 03/19/24 18:20 03/19/24 18:30 Temperature Temperature Source Pulse Rate 65 64 63 Pulse Rate from SpO2 Sensor 66 64 63 Pulse Rhythm Pulse Strength Respiratory Rate 24 19 22 Respiratory Effort / Characteristics Respiratory Depth Respiratory Pattern Blood Pressure 133/49 L Blood Pressure Mean 77 Blood Pressure Position Pulse Oximetry 96 100 100 Oxygen Delivery Method Sepsis Recent Fever Within 48 Hours Sepsis New/Unexplained Change in Mental Status Sepsis Action Taken by [facility] Medications Current Medication List: was personally reviewed by me Laboratory Data Attestation: I reviewed the patient's lab results. 03/19/24 15:30 03/19/24 15:30 Lab Results 03/19/24 03/19/24 03/19/24 Range/Units 15:30 16:44 18:11 WBC 3.00 L (4.8-10.8) K/ul RBC 2.16 L (4.70-6.10) M/uL Hgb 6.9 L* (14.0-18.0) g/dl Hct 22.1 L (42.0-52.0) % MCV 102.3 H (80.0-100.0) fL MCH 31.9 (25.0-34.0) pg MCHC 31.2 L (32.0-36.0) g/dL RDW Std Deviation 75.1 H (36.4-46.3) fL RDW Coeff of Violetta 20.3 H (11.5-14.5) % Plt Count 90 L (130-400) K/uL MPV 12.0 (9.4-12.4) fL Immature Gran % (Auto) 0.7 % Neut % (Auto) 69.3 % Lymph % (Auto) 16.7 % Wayne % (Auto) 7.3 % Eos % (Auto) 5.7 % Baso % (Auto) 0.3 % Neut # (Auto) 2.08 (1.40-6.50) K/uL Lymph # (Auto) 0.50 L (1.20-3.40) K/uL Wayne # (Auto) 0.22 (0.11-0.59) K/uL Eos # (Auto) 0.17 (0.00-0.50) K/uL Baso # (Auto) 0.01 (0.00-0.20) K/uL Immature Gran # (Auto) 0.02 (0.01-0.20) K/uL Polychromasia 1+ Anisocytosis Present Ovalocytes 1+ PT 12.8 H (9.0-12.0) Seconds INR 1.2 H (0.9-1.1) APTT 33 H (21-31) Seconds PTT Ratio 1.2 Sodium 139 (136-145) mmol/L Potassium 4.2 (3.5-5.1) mmol/L Chloride 112 H (98-107) mmol/L Carbon Dioxide 22 (21-32) mmol/L Anion Gap 5 (3-11) BUN 27 H (6-23) mg/dl Creatinine 1.23 (0.6-1.4) mg/dl Est Cr Clr Drug Dosing 55.2 ml/min Est GFR ( Amer) 67.1 ml/min Est GFR (Non-Af Amer) 57.9 ml/min BUN/Creatinine Ratio 22.0 H (10-20) Glucose 292 H (70-99(Fasting)) mg/dl Calcium 7.7 L (8.6-10.3) mg/dl Magnesium 1.6 L (1.7-2.4) mg/dl Total Bilirubin 2.7 H (0.2-1.0) mg/dl AST 31 (13-39) U/L ALT 16 (7-52) U/L Alkaline Phosphatase 156 H (34-104) U/L Ammonia 73.0 H (18-72) umol/L Troponin I High Sens 8.7 (0-20) pg/ml Total Protein 5.4 L (6.0-8.3) gm/dl Albumin 2.6 L (3.4-5.0) gm/dl Globulin 2.8 (2.5-4.0) gm/dl Albumin/Globulin Ratio 0.9 (0.9-2) Lipase 80 (11-82) U/L Urine Color Red Urine Appearance Turbid A (Clear) Urine pH TNP Ur Specific [place] > 1.030 H (1.000-1.030) Urine Protein TNP Urine Glucose (UA) TNP Urine Ketones TNP Urine Blood TNP Urine Nitrite TNP Urine Bilirubin TNP Urine Urobilinogen TNP Ur Leukocyte Esterase TNP Urine RBC >20 H (0-2) /hpf Urine WBC >50 H (0-5) /hpf Ur Epithelial Cells 0-2 (0-2) /hpf Urine Bacteria 4+ H (None Seen) Blood Type O Positive Antibody Screen NEGATIVE Crossmatch See Detail Administered Medications Insulin Aspart (Insulin Aspart Per Unit Charge) 0 units SC ACHS JODI Stop: 04/18/24 20:59 Last Admin: 03/19/24 21:59 Dose: 2 units Documented By: DELGADO Co-signed By: MARY Insulin Glargine (Lantus Per Unit Charge) 0 - 14 units SQ BID JODI; Protocol Stop: 04/18/24 20:59 Last Admin: 03/19/24 22:00 Dose: 14 units Documented By: DELGADO Co-signed By: MARY Lactulose (Lactulose Syrup 10 Gm/15 Ml Btl 960 Ml) 10 gm PO BID JODI Stop: 04/18/24 20:59 Last Admin: 03/19/24 22:14 Dose: Not Given Documented By: DELGADO Mirtazapine (Mirtazapine Tab 15 Mg Tab) 30 mg PO HS PRN PRN Reason: Sleep Stop: 04/18/24 20:48 Last Admin: 03/19/24 22:08 Dose: 30 mg Documented By: DELGADO Oxybutynin Chloride (Oxybutynin Chloride 5 Mg Tab) 5 mg PO BID JODI Stop: 04/18/24 20:59 Last Admin: 03/19/24 22:08 Dose: 5 mg Documented By: DELGADO Pantoprazole Sodium (Pantoprazole 40 Mg Tab) 40 mg PO BID JODI Stop: 04/18/24 20:59 Last Admin: 03/19/24 22:06 Dose: 40 mg Documented By: DELGADO Rifaximin (Rifaximin 550 Mg Tablet) 550 mg PO BID JODI Stop: 04/18/24 20:59 Last Admin: 03/19/24 22:07 Dose: 550 mg Documented By: DELGADO Discontinued Medications Baclofen (Baclofen 10 Mg Tab) 5 mg PO ONE ONE Stop: 03/19/24 20:28 Last Admin: 03/19/24 22:03 Dose: 5 mg Documented By: DELGADO Sodium Chloride (Nss) 500 mls @ 999 mls/hr IV .Q31M STA Stop: 03/19/24 16:29 Last Infusion: 03/19/24 19:09 Dose: Infused Documented By: Admin: 03/19/24 16:20 Dose: 999 mls/hr Documented By: BOOGIE Magnesium Sulfate/Dextrose (Magnesium Sulfate / D5w) 1 gm in 100 mls @ 100 mls/hr IV NOW STA Stop: 03/19/24 17:53 Last Infusion: 03/19/24 19:09 Dose: Infused Documented By: Admin: 03/19/24 17:21 Dose: 100 mls/hr Documented By: BOOGIE Ceftriaxone Sodium (Rocephin) 2,000 mg in 50 mls @ 100 mls/hr IV NOW STA Stop: 03/19/24 19:51 Last Infusion: 03/19/24 20:50 Dose: Infused Documented By: Admin: 03/19/24 20:13 Dose: 100 mls/hr Documented By: MARY Ioversol (Optiray 320 100ml) 92 ml IV ONCE ONE Stop: 03/19/24 16:49 Last Admin: 03/19/24 16:48 Dose: 92 ml Documented By: SHARON Imaging Data Radiologist's Impression: Abdomen/Pelvis CT 03/19/24 15:59 CT SCAN OF THE ABDOMEN AND PELVIS WITH IV CONTRAST CLINICAL HISTORY: Generalized abdominal pain. . COMPARISON STUDY: Prior abdominal CT scans, most recently dated 02/03/2024. TECHNIQUE: Following the IV administration of 92 cc of Optiray 320, CT scan of the abdomen and pelvis is performed from the lung bases to the proximal femora. Images are reviewed in the axial, sagittal, and coronal planes. IV contrast was administered without complication. A dose lowering technique was utilized adhering to the principles of ALARA. CT DOSE: 1160.45 mGy.cm FINDINGS: Lung bases: The heart is mildly enlarged noting a small pericardial effusion. The coronary arteries are densely calcified. There is bibasilar scarring/atelectasis. No airspace consolidation or pleural effusion is identified. There is a small hiatal hernia. Gynecomastia is noted. Liver: The contrast-enhanced liver is cirrhotic morphology and heterogeneous in attenuation. There is no intrahepatic biliary ductal dilatation. The hepatic veins abdomen portable veins are patent. A TIPS catheter is in place and appears patent. There are thrombosed peripheral portal venous branches distal to the TIPS. There is recanalization of the periumbilical vein. Again seen is a subtle 3.9 cm mass lesion in the left hepatic lobe below the diaphragm seen on axial image #62. An indeterminant 1.5 cm hypodensity is suggested in the right lobe on image #106. Gallbladder: There are calcified gallstones without CT evidence of acute cholecystitis. Spleen: The spleen is enlarged measuring 16.8 cm in length. There is a splenorenal shunt. Pancreas: A 2.2 cm simple cystic lesion is again seen in the pancreatic head/uncinate. The pancreas is otherwise normal as imaged. Adrenal glands: Unremarkable. Kidneys: The contrast enhanced kidneys demonstrate cortical atrophy and there are without hydronephrosis. The kidneys enhance symmetrically. A 1.6 cm hyperdense cyst is again seen in the anterior interpolar left kidney. Abdominal vasculature: The abdominal aorta is normal in course and caliber noting [id number] atherosclerotic calcification. Bowel: There is moderate to advanced colonic diverticulosis without CT evidence of acute diverticulitis. No bowel obstruction is seen. The appendix is well- visualized and normal. Peritoneum: There is a small volume of abdominopelvic ascites. No intraperitoneal free air is seen. Lymphadenopathy: Prominent lymph nodes in the upper abdomen/shwetha hepatis are nonspecific and likely related to chronic liver disease. Pelvic viscera: The prostate gland is enlarged and heterogeneous. There is significant and irregular bladder wall thickening with surrounding infiltration. Skeletal structures: The skeletal structures are osteopenic. Again seen is a subacute superior endplate compression fracture of L2 with mild loss of height and minimal retropulsion of fragments. There is subacute/healing 3 column fracture of the T12 vertebral body. This is unchanged from recent prior examinations. A chronic superior endplate compression deformity of L1 is unchanged. No lytic or blastic lesions are seen. IMPRESSION: 1. The liver is cirrhotic in morphology and heterogeneous in attenuation. 2. A small volume of abdominopelvic ascites, splenomegaly, and a splenorenal shunt indicate portal hypertension. 3. Again seen is a 3.9 cm left lobe hepatic mass lesion, as well as a possible second 1.5 cm right lobe lesion. Neoplasm is not excluded. 4. A TIPS catheter is in place and appears patent. Thrombosed peripheral portal venous branches are again seen distal to the TIPS catheter. 5. The bladder shows marked and asymmetric wall thickening with mild surrounding inflammation. Correlate with clinical findings and urinalysis. 6. Colonic diverticulosis without CT evidence of acute diverticulitis. 7. Cardiomegaly. 8. Cholelithiasis. 9. Again seen are subacute/healing fractures of T12 and L2. 10. Additional findings as above. ACT 112: Negative or not required by law. Electronically signed by: Scott Yepez M.D. 03/19/2024 5:06 PM Discharge Plan Visit Data Chief Complaint: Abdominal Pain Stated Complaint: ABDOMINAL PAIN ED Provider: Scott Huynh Discharge Problem: Left sided abdominal pain, Anemia, Hematuria, Diarrhea, UTI (urinary tract infection) Patient Disposition: Admitted As Inpatient Condition: Fair Discharge Instructions Interventions: ED Discharge Assessment Last Done: 03/19/24 20:50 Discharge Problem: Anemia Qualifiers: Anemia type: unspecified type Qualified Code(s): D64.9 - Anemia, unspecified Hematuria Qualifiers: Hematuria type: gross Qualified Code(s): R31.0 - Gross hematuria Diarrhea Qualifiers: Diarrhea type: unspecified type Qualified Code(s): R19.7 - Diarrhea, unspecified UTI (urinary tract infection) Qualifiers: Urinary tract infection type: acute cystitis Hematuria presence: with hematuria Qualified Code(s): N30.01 - Acute cystitis with hematuria
[2024-03-19] MEDS ORDERED: SODIUM CHLORIDE 0.9% 250 ML IV PRN ×2 (16:36→18:26)
[2024-03-19 16:38] LABS: Albumin Globulin Ratio 0.9 (0.9-2); Albumin Level 2.6 gm/dl (3.4-5.0); Bilirubin,Total 2.7 mg/dl (0.2-1.0); Calcium 7.7 mg/dl (8.6-10.3); Creatinine Clr Calc Pharmacy 55.2 ml/min; Est GFR (African American) 67.1 ml/min; Est GFR (Non-African American) 57.9 ml/min; Globulin 2.8 gm/dl (2.5-4.0); Hematocrit (blood only) 22.1 % (42.0-52.0); Hemoglobin 6.9 g/dl (14.0-18.0); Magnesium 1.6 mg/dl (1.7-2.4); Mean Corpuscular Hemoglobin 31.9 pg (25.0-34.0); Mean Corpuscular Hgb Conc 31.2 g/dL (32.0-36.0); Mean Corpuscular Volume 102.3 fL (80.0-100.0); Platelet Count 90 K/uL (130-400); Potassium 4.2 mmol/L (3.5-5.1); RDW Coefficient of Variation 20.3 % (11.5-14.5); RDW Standard Deviation 75.1 fL (36.4-46.3); Red Blood Count 2.16 M/uL (4.70-6.10); Total Protein 5.4 gm/dl (6.0-8.3)
[2024-03-19 16:44] LABS: Troponin I High Sensitivity 8.7 pg/ml (0-20)
[2024-03-19] MEDS: OPTIRAY 320 100ml IV ONE (16:48)
[2024-03-19 16:59] LABS: Anisocytosis Present; Basophils # (auto) 0.01 K/uL (0.00-0.20); Basophils % (auto) 0.3 %; Eosinophils # (auto) 0.17 K/uL (0.00-0.50); Eosinophils % (auto) 5.7 %; Immature Granulocytes # (auto) 0.02 K/uL (0.01-0.20); Immature Granulocytes % (auto) 0.7 %; Lymphocytes % (auto) 16.7 %; Monocytes # (auto) 0.22 K/uL (0.11-0.59); Monocytes % (auto) 7.3 %; Neutrophils # (auto) 2.08 K/uL (1.40-6.50); Neutrophils % (auto) 69.3 %; Ovalocytes 1+; Polychromasia 1+
--- NOTE | 2024-03-19 17:07 | CT Scan Report ---
CT SCAN OF THE ABDOMEN AND PELVIS WITH IV CONTRAST CLINICAL HISTORY: Generalized abdominal pain. . COMPARISON STUDY: Prior abdominal CT scans, most recently dated 02/03/2024. TECHNIQUE: Following the IV administration of 92 cc of Optiray 320, CT scan of the abdomen and pelvi s is performed from the lung bases to the proximal femora. Images are reviewed in the axial, sagittal , and coronal planes. IV contrast was administered without complication. A dose lowering technique wa s utilized adhering to the principles of ALARA. CT DOSE: 1160.45 mGy.cm FINDINGS: Lung bases: The heart is mildly enlarged noting a small pericardial effusion. The coronary arteries a re densely calcified. There is bibasilar scarring/atelectasis. No airspace consolidation or pleural e ffusion is identified. There is a small hiatal hernia. Gynecomastia is noted. Liver: The contrast-enhanced liver is cirrhotic morphology and heterogeneous in attenuation. There is no intrahepatic biliary ductal dilatation. The hepatic veins abdomen portable veins are patent. A TI PS catheter is in place and appears patent. There are thrombosed peripheral portal venous branches di stal to the TIPS. There is recanalization of the periumbilical vein. Again seen is a subtle 3.9 cm ma ss lesion in the left hepatic lobe below the diaphragm seen on axial image #62. An indeterminant 1.5 cm hypodensity is suggested in the right lobe on image #106. Gallbladder: There are calcified gallstones without CT evidence of acute cholecystitis. Spleen: The spleen is enlarged measuring 16.8 cm in length. There is a splenorenal shunt. Pancreas: A 2.2 cm simple cystic lesion is again seen in the pancreatic head/uncinate. The pancreas i s otherwise normal as imaged. Adrenal glands: Unremarkable. Kidneys: The contrast enhanced kidneys demonstrate cortical atrophy and there are without hydronephro sis. The kidneys enhance symmetrically. A 1.6 cm hyperdense cyst is again seen in the anterior interp olar left kidney. Abdominal vasculature: The abdominal aorta is normal in course and caliber noting [id number] at herosclerotic calcification. Bowel: There is moderate to advanced colonic diverticulosis without CT evidence of acute diverticulit is. No bowel obstruction is seen. The appendix is well-visualized and normal. Peritoneum: There is a small volume of abdominopelvic ascites. No intraperitoneal free air is seen. Lymphadenopathy: Prominent lymph nodes in the upper abdomen/shwetha hepatis are nonspecific and likely related to chronic liver disease. Pelvic viscera: The prostate gland is enlarged and heterogeneous. There is significant and irregular bladder wall thickening with surrounding infiltration. Skeletal structures: The skeletal structures are osteopenic. Again seen is a subacute superior endpla te compression fracture of L2 with mild loss of height and minimal retropulsion of fragments. There i s subacute/healing 3 column fracture of the T12 vertebral body. This is unchanged from recent prior e xaminations. A chronic superior endplate compression deformity of L1 is unchanged. No lytic or blasti c lesions are seen. IMPRESSION: 1. The liver is cirrhotic in morphology and heterogeneous in attenuation. 2. A small volume of abdominopelvic ascites, splenomegaly, and a splenorenal shunt indicate portal hy pertension. 3. Again seen is a 3.9 cm left lobe hepatic mass lesion, as well as a possible second 1.5 cm right lo be lesion. Neoplasm is not excluded. 4. A TIPS catheter is in place and appears patent. Thrombosed peripheral portal venous branches are a gain seen distal to the TIPS catheter. 5. The bladder shows marked and asymmetric wall thickening with mild surrounding inflammation. Correl ate with clinical findings and urinalysis. 6. Colonic diverticulosis without CT evidence of acute diverticulitis. 7. Cardiomegaly. 8. Cholelithiasis. 9. Again seen are subacute/healing fractures of T12 and L2. 10. Additional findings as above. ACT 112: Negative or not required by law. Electronically signed by: Scott Yepez M.D. 03/19/2024 5:06 PM
[2024-03-19 17:08] LABS: INR 1.2 (0.9-1.1); Partial Thromboplastin Ratio 1.2; Partial Thromboplastin Time 33 Seconds (21-31); Prothrombin Time 12.8 Seconds (9.0-12.0)
[2024-03-19] MEDS: MAGNESIUM SULFATE / D5W 1 GM/100 ML BAG IV STA (17:21)
--- NOTE | 2024-03-19 18:14 | History & Physical Report ---
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: (4) Daily urinary incontinence: (5) Pancytopenia: Plan This is a 73-year-old male with PMH of radiation proctitis, ongoing hematuria requiring transfusions, type 2 diabetes, restrictive lung disease, hyperlipidemia, chronic gout, pulmonary hypertension, gout, esophageal varices, portal vein thrombosis, prolonged QT, mild mitral regurgitation, aortic valve sclerosis, cirrhosis of liver status post TIPS requiring paracentesis, GERD, hepatocellular carcinoma s/p embolization, prostate cancer s/p radiation, protein calorie malnutrition, chronic kidney stage III, acquired thrombocytopenia, iron deficiency anemia, CKD stage III, pancytopenia, psoriasis who presents with pain on left side of abdomen following paracentesis earlier today. Patient has had multiple admissions in the past few months for worsening anemia in setting of hematuria, radiation proctitis requiring blood transfusions. Hematuria BPH/prostate cancer status post radiation H/o radiation cystitis Afebrile, hemodynamically stable Hemoglobin 6.9 in setting of chronic hematuria (baseline ~8) Transfusing 1 unit PRBCs now Due for evaluation of hyperbaric oxygen therapy tomorrow if discharged in time. Dr. Pickard reached out and cant reschedule if needed. Discussed that patient's comorbidities would present challenges for this type of therapy Repeat CBC in AM UA with 4+ bacteria Continue empiric Rocephin Follow urine culture Bladder scan PRN LLQ abdominal pain Diarrhea Following paracentesis today CT abd/pelvis showing: A small volume of abdominopelvic ascites, splenomegaly, and a splenorenal shunt indicate portal hypertension. Again seen is a 3.9 cm left lobe hepatic mass lesion, as well as a possible second 1.5 cm right lobe lesion. Neoplasm is not excluded. A TIPS catheter is in place and appears patent. Thrombosed peripheral portal venous branches are again seen distal to the TIPS catheter. The bladder shows marked and asymmetric wall thickening with mild surrounding inflammation. Correlate with clinical findings and urinalysis. Pain improves when laying on left side - no acute findings on imaging Trial of 5mg Baclofen, PRN Tylenol No recurrent diarrhea since arrival - collect stool sample if able 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 Hepatocellular carcinoma status post IR embolization History GAVE/esophageal varices/portal hypertensive gastropathy/radiation proctitis/diverticulosis on endoscopy Appears euvolemic today Underwent paracentesis this afternoon Continue home Lasix, lactulose and Xifaxan and Protonix CKD III Cr at baseline 1.23. Continue to monitor DM II A1c of 5.6 in January 2023 Hold home agents Basal/bolus insulin regimen while in-patient BSG AC HS DVT Ppx: SCDs given hematuria Code status: FULL PCP: Tanna Dispo: Observation med tele Patient seen in collaboration with Dr. Velazquez. Please see addendum. I spent a total of 75 minutes coordinating, documenting, and providing care for this patient excluding time spent in the performance of separately billed services. History of Present Illness Chief Complaint: abdominal pain Primary Care Provider: Francisco Cisse MD This is a 73-year-old male with PMH of radiation proctitis, ongoing hematuria requiring transfusions, type 2 diabetes, restrictive lung disease, hyperlipidemia, chronic gout, pulmonary hypertension, gout, esophageal varices, portal vein thrombosis, prolonged QT, mild mitral regurgitation, aortic valve sclerosis, cirrhosis of liver status post TIPS requiring paracentesis, GERD, hepatocellular carcinoma s/p embolization, prostate cancer s/p radiation, protein calorie malnutrition, chronic kidney stage III, acquired thrombocytopenia, iron deficiency anemia, CKD stage III, pancytopenia, psoriasis who presents with pain on left side of abdomen following paracentesis earlier today. Describes pain on left lower abdomen described as a steady pressure. Also endorses profuse diarrhea following paracentesis earlier today, prompting presentation to the ED. Still having hematuria but is planning to have an evaluation for hyperbaric oxygen therapy tomorrow at 1400. On the waiting list for evaluation at liver transplant clinic. No F/C, lightheadedness, CP, SOB, constipation. Patient is feeling very discouraged with ongoing health issues. Allergies Allergy/AdvReac Type Severity Reaction Status Date / Time No Known Allergies Allergy Mild Verified 03/19/24 18:15 Home Medications Medication Instructions Recorded Confirmed Type allopurinol 100 mg tablet 100 mg PO QAM 05/16/20 03/19/24 History finasteride 5 mg tablet 5 mg PO QAM 11/03/21 03/19/24 History furosemide 20 mg tablet (Lasix) 40 mg PO QAM 11/02/22 03/19/24 History insulin glargine 100 unit/mL 27 unit subcut QPM 11/05/22 03/19/24 History subcutaneous solution (Lantus U-100 Insulin) Lactobacil.acidophilus-Bifido.animalis 1 cap PO QAM 05/17/23 03/19/24 History 5 billion cell sprinkle capsule (Probiotic) ferrous sulfate 325 mg (65 mg 650 mg PO QAM 05/17/23 03/19/24 History iron) tablet (iron) tikgworwffyq-mjo-guupw acid-vit 1 tab PO DAILY 05/17/23 03/19/24 History K-lycop 400 mcg-20 mcg-370 mcg tablet (Men's 50 Plus Multivitamin) duloxetine 30 mg capsule,delayed 30 mg PO QAM 02/02/24 03/19/24 History release pantoprazole 40 mg tablet,delayed 40 mg PO AMPM 02/02/24 03/19/24 History release rifaximin 550 mg tablet (Xifaxan) 550 mg PO AMHS 02/02/24 03/19/24 History oxybutynin chloride 5 mg tablet 5 mg PO BID #60 tabs 02/11/24 03/19/24 Rx metoclopramide HCl 5 mg tablet 5 mg PO TID PRN Nausea And Vomiting 02/20/24 03/19/24 History mirtazapine 30 mg tablet 30 mg PO HS PRN Sleep 02/20/24 03/19/24 History magnesium chloride 64 mg 64 mg PO QAM #30 tabs 02/22/24 03/19/24 Rx (magnesium chloride) tablet,delayed release (Mag 64) acetaminophen 500 mg tablet 1,000 mg PO BID PRN Pain 03/19/24 03/19/24 History lactulose 10 gram oral packet 10 g PO DAILY 03/19/24 03/19/24 History (Kristalose) Past Med/Surg History Medical History Atypical chest pain Radiation cystitis History of blood transfusion 11/2022 Hepatocellular carcinoma Spinal fracture of T12 vertebra History of recent hospitalization 06/2023 [facility] hepatic encephalopathy Insulin dependent type 2 diabetes mellitus Liver spots Under surveillance, stable per patient Anxiety and depression 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 Anemia of chronic disease under surveillance Prostate cancer Hx radiation History of panic attacks Gout No current issues GERD (gastroesophageal reflux disease) GAVE (gastric antral vascular ectasia) CKD (chronic kidney disease) stage 3, GFR 30-59 ml/min Hypertension Hx Esophageal varices EGD 05/22/23 ([facility]): Grade 1 varices in distal esophagus without high risk stigmata Upper GI bleed Hx Psoriasis Surgical History History of left cataract surgery History of right cataract surgery History of prostate biopsy malignant S/P TIPS (transjugular intrahepatic portosystemic shunt) History of esophagogastroduodenoscopy (EGD) Most recent 05/2023 [facility] History of colonoscopy with polypectomy History of tonsillectomy and adenoidectomy History of abdominal paracentesis Multiple, most recent 01/2023 Family History Father , "3/4 liver gone due to drinking" Colorectal cancer, Onset Age: 63 Mother Lung cancer Daughter Cancer cervical and thyroid cancers Ovarian cancer Other No family history of adverse response to anesthesia 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 Smoking Status: Never smoker Second Hand Exposure: No; Do You Dip or Chew Tobacco: No; Hx Alcohol Use: No Hx Substance Use: No Preferred Language: Wolof Communication Ability: Effective Visual Impairment: No Limitations Hearing Ability: Normal Operator Maintainer Required: No Beliefs That Will Affect Care: None marital status: Current Living Situation: Spouse Current Living Situation Comment: 1 level single family home 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 How many Children do You have: 6 How many Children do You have Comment: one , eldest daughter in her sleep from seizure disorder Feels Safe at Home: Yes Childhood Exposure to Second-Hand Smoke: Yes Diet Comment: "I watch my sugar, average fasting is 140 mg/dl" caffeine: Yes (cola, sugar free, decaf) during the past year weight has: remained stable Dental Care, Regularly: No Physical Activity Frequency: Does not Exercise Seatbelt Use: always Sunscreen Use: Yes Assistive Devices: Glasses and Walker Review of Systems Review of Systems: At least ten systems reviewed and negative except as noted in the HPI. Physical Exam Physical Exam: Please see Dr. Velazquez' addendum for physical exam. Results & Data Results & Data Vital Signs (Past 12 Hours) Vital Signs Temp Pulse Resp BP Pulse Ox O2 Del Method 03/19/24 17:43 67 03/19/24 16:08 67 20 97 Room Air 03/19/24 15:25 36.7 C 65 19 109/53 L 98 Room Air Laboratory Results Short CBC 03/19/24 Range/Units 15:30 WBC 3.00 L (4.8-10.8) K/ul Hgb 6.9 L* (14.0-18.0) g/dl Hct 22.1 L (42.0-52.0) % Plt Count 90 L (130-400) K/uL BMP 03/19/24 15:30 Sodium 139 Potassium 4.2 Chloride 112 H Carbon Dioxide 22 BUN 27 H Creatinine 1.23 Glucose 292 H Calcium 7.7 L Liver Function 03/19/24 Range/Units 15:30 Total Bilirubin 2.7 H (0.2-1.0) mg/dl AST 31 (13-39) U/L ALT 16 (7-52) U/L Alkaline Phosphatase 156 H (34-104) U/L Albumin 2.6 L (3.4-5.0) gm/dl Diagnostic Findings Abdomen/Pelvis CT 03/19/24 15:59 CT SCAN OF THE ABDOMEN AND PELVIS WITH IV CONTRAST CLINICAL HISTORY: Generalized abdominal pain. . COMPARISON STUDY: Prior abdominal CT scans, most recently dated 02/03/2024. TECHNIQUE: Following the IV administration of 92 cc of Optiray 320, CT scan of the abdomen and pelvis is performed from the lung bases to the proximal femora. Images are reviewed in the axial, sagittal, and coronal planes. IV contrast was administered without complication. A dose lowering technique was utilized adhering to the principles of ALARA. CT DOSE: 1160.45 mGy.cm FINDINGS: Lung bases: The heart is mildly enlarged noting a small pericardial effusion. The coronary arteries are densely calcified. There is bibasilar scarring/atelectasis. No airspace consolidation or pleural effusion is identified. There is a small hiatal hernia. Gynecomastia is noted. Liver: The contrast-enhanced liver is cirrhotic morphology and heterogeneous in attenuation. There is no intrahepatic biliary ductal dilatation. The hepatic veins abdomen portable veins are patent. A TIPS catheter is in place and appears patent. There are thrombosed peripheral portal venous branches distal to the TIPS. There is recanalization of the periumbilical vein. Again seen is a subtle 3.9 cm mass lesion in the left hepatic lobe below the diaphragm seen on axial image #62. An indeterminant 1.5 cm hypodensity is suggested in the right lobe on image #106. Gallbladder: There are calcified gallstones without CT evidence of acute cholecystitis. Spleen: The spleen is enlarged measuring 16.8 cm in length. There is a splenorenal shunt. Pancreas: A 2.2 cm simple cystic lesion is again seen in the pancreatic head/uncinate. The pancreas is otherwise normal as imaged. Adrenal glands: Unremarkable. Kidneys: The contrast enhanced kidneys demonstrate cortical atrophy and there are without hydronephrosis. The kidneys enhance symmetrically. A 1.6 cm hyperdense cyst is again seen in the anterior interpolar left kidney. Abdominal vasculature: The abdominal aorta is normal in course and caliber noting [id number] atherosclerotic calcification. Bowel: There is moderate to advanced colonic diverticulosis without CT evidence of acute diverticulitis. No bowel obstruction is seen. The appendix is well- visualized and normal. Peritoneum: There is a small volume of abdominopelvic ascites. No intraperitoneal free air is seen. Lymphadenopathy: Prominent lymph nodes in the upper abdomen/shwetha hepatis are nonspecific and likely related to chronic liver disease. Pelvic viscera: The prostate gland is enlarged and heterogeneous. There is significant and irregular bladder wall thickening with surrounding infiltration. Skeletal structures: The skeletal structures are osteopenic. Again seen is a subacute superior endplate compression fracture of L2 with mild loss of height and minimal retropulsion of fragments. There is subacute/healing 3 column fracture of the T12 vertebral body. This is unchanged from recent prior examinations. A chronic superior endplate compression deformity of L1 is unchanged. No lytic or blastic lesions are seen. IMPRESSION: 1. The liver is cirrhotic in morphology and heterogeneous in attenuation. 2. A small volume of abdominopelvic ascites, splenomegaly, and a splenorenal shunt indicate portal hypertension. 3. Again seen is a 3.9 cm left lobe hepatic mass lesion, as well as a possible second 1.5 cm right lobe lesion. Neoplasm is not excluded. 4. A TIPS catheter is in place and appears patent. Thrombosed peripheral portal venous branches are again seen distal to the TIPS catheter. 5. The bladder shows marked and asymmetric wall thickening with mild surrounding inflammation. Correlate with clinical findings and urinalysis. 6. Colonic diverticulosis without CT evidence of acute diverticulitis. 7. Cardiomegaly. 8. Cholelithiasis. 9. Again seen are subacute/healing fractures of T12 and L2. 10. Additional findings as above. ACT 112: Negative or not required by law. Electronically signed by: Scott Yepez M.D. 03/19/2024 5:06 PM ECG Additional Comments: EKG reviewed - Normal sinus rhythm Prolonged QT When compared with ECG of 09-FEB-2024 12:50, Nonspecific T wave abnormality now evident in Anterior leads Supervising Physician Co-Signing Physician Notes I have seen and discussed the case with the collaborating advanced practitioner. I agree with the above H&P. I have reviewed and confirmed the patients medical history, the findings on physical examination, and the patients diagnosis and treatment plan with Amari ARCEO and agree with the information documented. In short, Mr. Hale is a 73 year old gentleman with complicated past medical history notable for decompensated FOFANA cirrhosis s/p TIPS procedure, prostate cancer s/p radiation c/b radiation cystitis who is admitted due to ongoing hematuria requiring transfusion and LLQ discomfort/spasm after paracentesis. Patient with 4.7L removed today. Noted cramping in is abdomen and diarrhea, prompting presentation to ED shortly thereafter. Patient without further diarrhea since presenting to ED, but hgb notably 6.9 CT AB/P did not elucidate clear etiology of LLQ. patient much improved while laying on left side. GENERAL APPEARANCE: AxOx4,tearful gentleman , no acute distress. HEENT: NC, AT. MMM. EOMI, clear conjunctiva, oropharynx clear. NECK: Supple without lymphadenopathy. No stiffness or restricted ROM. HEART: Normal rate and regular rhythm, WINTER+ LUNGS: CTAB, moving air well. No crackles or wheezes are heard. ABDOMEN: Soft, nontender, mildly protuberant BACK: No CVAT, no obvious deformity. EXTREMITIES: Without cyanosis, clubbing or edema. NEUROLOGICAL: Grossly nonfocal. Alert and oriented, moving all 4 extremities. CN not formally tested but appear grossly intact Skin: Warm and dry without any rash. #Acute on chronic anemia iso gross hematuria #Radiation cystitis -1 unit PRBC in ED, cardiology historically recommended goal of >8 given EKG changes noted previous -Follow repeat hgb, transfuse <8 -Declined mendoza Rest of plan as above #LLQ pain #Cirrhosis s/p tips #s/p paracentesis #Diarrhea On waitlist for transplant [facility], not transplantation. -Despite diarrhea will continue lactulose given elevated ammonia level Continue Xifaxan Trial baclofen x1 Bentyl prn Patient with appointment at 1400 03/19 and eager to make it to Wound clinic for assessment of eligibility for hyperbaric oxygen. I spent a total of 35 minutes coordinating, documenting, and providing care for this patient excluding time spent in the performance of separately billed services. All of the aforementioned completed outside of collaborating with the assigned advanced practitioner for a full treatment plan. I have reviewed the advanced practitioner's documentation, and I agree with, and take responsibility for the plan of care (2) Hematuria Hematuria type: gross Qualified Code(s): R31.0 - Gross hematuria
[2024-03-19 18:54] LABS: Appearance Urine Turbid (Clear); Color Urine Red
[2024-03-19 19:08] LABS: Specific Gravity Urine > 1.030 (1.000-1.030)
[2024-03-19 19:13] LABS: RBC Urine >20 /hpf (0-2); WBC Urine >50 /hpf (0-5)
[2024-03-19 19:14] LABS: Bacteria Urine 4+ (None Seen); Epithelial Cell Urine 0-2 /hpf (0-2)
[2024-03-19] MEDS: cefTRIAXone SODIUM 2,000 MG/50 ML BAG IV STA (20:13)
[2024-03-19] MEDS ORDERED: GLUCOSE 10 TAB/TUBE PO PRN (20:39)
[2024-03-19] MEDS ORDERED: DEXTROSE 50% 50 ML SYRINGE IV PRN (20:39)
[2024-03-19] MEDS ORDERED: CARBOHYDRATES FOR HYPOGLYCEMIA PO PRN (20:39)
[2024-03-19] MEDS ORDERED: GLUCAGON FOR INJ 1 MG VIAL SQ PRN (20:39)
[2024-03-19] MEDS ORDERED: GLUCOSE 40% GEL 15 GM TUBE PO PRN (20:39)
[2024-03-19] MEDS ORDERED: ACETAMINOPHEN 500 MG TAB PO PRN (20:49)
[2024-03-19] MEDS ORDERED: POLYETHYLENE (MIRALAX) 17 GM PACK PO PRN (20:49)
[2024-03-19] MEDS ORDERED: METOCLOPRAMIDE HCL 5 MG TABLET PO PRN (20:49)
[2024-03-19] MEDS ORDERED: DICYCLOMINE HCL 10 MG CAP PO PRN (20:49)
[2024-03-19] MEDS: INSULIN ASPART PER UNIT CHARGE SC SCH (21:59)
[2024-03-19] MEDS: LANTUS PER UNIT CHARGE SQ SCH (22:00)
[2024-03-19] MEDS: BACLOFEN 10 MG TAB PO ONE (22:03)
[2024-03-19] MEDS: PANTOprazole 40 MG TAB PO SCH (22:06)
[2024-03-19] MEDS: rifAXIMin 550 MG TABLET PO SCH (22:07)
[2024-03-19] MEDS: MIRTAZAPINE TAB 15 MG TAB PO PRN (22:08)
[2024-03-19] MEDS: oxyBUTYnin chloride 5 MG TAB PO SCH (22:08)
[2024-03-19] MEDS: LACTULOSE SYRUP 10 GM/15 ML BTL 960 ML PO SCH (22:14)
[2024-03-20] MEDS: CEROVITE ADV FORMULA TAB PO SCH (10:19)
[2024-03-20] MEDS: MAGNESIUM CHLORIDE W/CALCIUM 64MG DELAYED REL TAB PO SCH (10:19)
[2024-03-20] MEDS: ADVANCED PROBIOTIC 625 MG CAPSULE PO SCH (10:20)
[2024-03-20] MEDS: FERROUS SULFATE 325 MG TAB PO SCH (10:21)
[2024-03-20] MEDS: DULoxetine HCL 30 MG CAP PO SCH (10:21)
[2024-03-20 10:22] LABS: Hematocrit (blood only) 26.7 % (42.0-52.0); Hemoglobin 8.6 g/dl (14.0-18.0); Mean Corpuscular Hemoglobin 32.2 pg (25.0-34.0); Mean Corpuscular Hgb Conc 32.2 g/dL (32.0-36.0); Mean Platelet Volume 11.7 fL (9.4-12.4); Platelet Count 88 K/uL (130-400); RDW Coefficient of Variation 20.7 % (11.5-14.5); RDW Standard Deviation 74.9 fL (36.4-46.3); Red Blood Count 2.67 M/uL (4.70-6.10); White Blood Count 3.77 K/ul (4.8-10.8)
[2024-03-20] MEDS: FUROSEMIDE 40 MG TAB PO SCH (10:22)
[2024-03-20] MEDS: allopurinoL 100 MG TAB PO SCH (10:22)
[2024-03-20] MEDS: FINASTERIDE 5 MG TAB PO SCH (10:22)
[2024-03-20 10:33] LABS: Calcium 7.6 mg/dl (8.6-10.3); Magnesium 1.7 mg/dl (1.7-2.4); Potassium 4.2 mmol/L (3.5-5.1)
[2024-03-20 10:39] LABS: BUN Creatinine Ratio 21.2 (10-20); Creatinine Clr Calc Pharmacy 60.1 ml/min; Est GFR (African American) 74.3 ml/min; Est GFR (Non-African American) 64.1 ml/min; Phosphorus 3.7 mg/dl (2.5-4.9)
--- NOTE | 2024-03-20 12:41 | Discharge Summary ---
Date of Service March 20, 2024 Admission HPI Per Admitting Provider This is a 73-year-old male with PMH of radiation proctitis, ongoing hematuria requiring transfusions, type 2 diabetes, restrictive lung disease, hyperlipidemia, chronic gout, pulmonary hypertension, gout, esophageal varices, portal vein thrombosis, prolonged QT, mild mitral regurgitation, aortic valve sclerosis, cirrhosis of liver status post TIPS requiring paracentesis, GERD, hepatocellular carcinoma s/p embolization, prostate cancer s/p radiation, protein calorie malnutrition, chronic kidney stage III, acquired thrombocytopenia, iron deficiency anemia, CKD stage III, pancytopenia, psoriasis who presents with pain on left side of abdomen following paracentesis earlier today. Describes pain on left lower abdomen described as a steady pressure. Also endorses profuse diarrhea following paracentesis earlier today, prompting presentation to the ED. Still having hematuria but is planning to have an evaluation for hyperbaric oxygen therapy tomorrow at 1400. On the waiting list for evaluation at liver transplant clinic. No F/C, lightheadedness, CP, SOB, constipation. Patient is feeling very discouraged with ongoing health issues. Admission Exam Per Admitting Provider GENERAL APPEARANCE: AxOx4,tearful gentleman , no acute distress. HEENT: NC, AT. MMM. EOMI, clear conjunctiva, oropharynx clear. NECK: Supple without lymphadenopathy. No stiffness or restricted ROM. HEART: Normal rate and regular rhythm, WINTER+ LUNGS: CTAB, moving air well. No crackles or wheezes are heard. ABDOMEN: Soft, nontender, mildly protuberant BACK: No CVAT, no obvious deformity. EXTREMITIES: Without cyanosis, clubbing or edema. NEUROLOGICAL: Grossly nonfocal. Alert and oriented, moving all 4 extremities. CN not formally tested but appear grossly intact Skin: Warm and dry without any rash. Principal Diagnosis Likely UTI ISO increased hematuria and lower abdominal pain History of hematuria in the setting of prostate cancer status post radiation and radiation cystitis Discharge Exam GENERAL: Alert and oriented x3. NAD, on RA. HEENT: No pallor, no icterus. Pupils equal, round and reactive to light. Oral mucosa moist. NECK: No JVD, no neck masses. HEART: S1 and S2 heard. Regular rate and rhythm. + murmur, no gallop. RESPIRATORY SYSTEM: Normal AP diameter. No accessory muscle use. No wheezing, no crackles. ABDOMEN: Soft, bowel sounds present, nontender, no distention. CENTRAL NERVOUS SYSTEM: No facial droop. Speech is clear. Obeys simple commands. Moves extremities. EXTREMITIES: No edema, no erythema seen. 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: (4) Daily urinary incontinence: (5) Pancytopenia: Plan Per prior attending with addendum: This is a 73-year-old male with PMH of radiation proctitis, ongoing hematuria requiring transfusions, type 2 diabetes, restrictive lung disease, hyperlipidemia, chronic gout, pulmonary hypertension, gout, esophageal varices, portal vein thrombosis, prolonged QT, mild mitral regurgitation, aortic valve sclerosis, cirrhosis of liver status post TIPS requiring paracentesis, GERD, hepatocellular carcinoma s/p embolization, prostate cancer s/p radiation, protein calorie malnutrition, chronic kidney stage III, acquired thrombocytopenia, iron deficiency anemia, CKD stage III, pancytopenia, psoriasis who presents with pain on left side of abdomen following paracentesis earlier today. Patient has had multiple admissions in the past few months for worsening anemia in setting of hematuria, radiation proctitis requiring blood transfusions. Hematuria BPH/prostate cancer status post radiation H/o radiation cystitis Afebrile, hemodynamically stable Hemoglobin 6.9 in setting of chronic hematuria (baseline ~8) Transfusing 1 unit PRBCs now Due for evaluation of hyperbaric oxygen therapy tomorrow if discharged in time. Dr. Pickard reached out and cant reschedule if needed. Discussed that patient's comorbidities would present challenges for this type of therapy Repeat CBC in AM UA with 4+ bacteria Continue empiric Rocephin Follow urine culture Bladder scan PRN LLQ abdominal pain Diarrhea Following paracentesis today CT abd/pelvis showing: A small volume of abdominopelvic ascites, splenomegaly, and a splenorenal shunt indicate portal hypertension. Again seen is a 3.9 cm left lobe hepatic mass lesion, as well as a possible second 1.5 cm right lobe lesion. Neoplasm is not excluded. A TIPS catheter is in place and appears patent. Thrombosed peripheral portal venous branches are again seen distal to the TIPS catheter. The bladder shows marked and asymmetric wall thickening with mild surrounding inflammation. Correlate with clinical findings and urinalysis. Pain improves when laying on left side - no acute findings on imaging Trial of 5mg Baclofen, PRN Tylenol No recurrent diarrhea since arrival - collect stool sample if able 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 Hepatocellular carcinoma status post IR embolization History GAVE/esophageal varices/portal hypertensive gastropathy/radiation proctitis/diverticulosis on endoscopy Appears euvolemic today Underwent paracentesis this afternoon Continue home Lasix, lactulose and Xifaxan and Protonix CKD III Cr at baseline 1.23. Continue to monitor DM II A1c of 5.6 in January 2023 Hold home agents Basal/bolus insulin regimen while in-patient BSG AC HS DVT Ppx: SCDs given hematuria Code status: FULL PCP: Tanna Dispo: Observation med tele Addendum 03/20/2024: Patient was seen and examined at bedside as a follow-up of UTI in the setting of increased hematuria and lower abdominal pain, and blood loss anemia. Patient did receive 1 unit blood transfusion, hemoglobin up to 8.6. Patient did came in with lower abdominal pain associated with increased hematuria, patient reports improvement in his lower belly pain and hematuria after antibiotic administration in the ED. Patient will be discharged on antibiotic to complete the course for UTI, patient has been made aware to follow-up on the final results of the urine culture with his PCP visit within a week time to make sure that the treatment is appropriate. He states that he has appointment with [facility] for his evaluation of liver lesions. He reports his diarrhea has resolved. Since the patient needed to go today to maintain his appointment with wound clinic for evaluation for bariatric treatment for his radiation cystitis, he is being discharged with following instruction at the point of discharge: Follow-up with your primary care physician within a week time and likely you will need labs CBC/CMP/magnesium/phosphorus. You are diagnosed with UTI, you will be discharged on antibiotic to complete the course. Please follow-up on the final results of urine culture with your PCP office within a week time to make sure that you are receiving appropriate antibiotic treatment. Follow-up with your nephrology as prior. Closely follow-up with your urology within a week time upon discharge. Maintain follow-up with the wound clinic for evaluation of bariatric therapy for radiation cystitis. Follow up with your GI doctor as prior. Follow-up with your [facility] appointment for evaluation of your liver mass. You will need frequent ultrasound abdomen every few weeks time, and further evaluation for need for paracentesis based on your clinical evaluation at the time. Coordinate with your PCP office to set up the test. Take your medications as prescribed. Please make sure that you are able to get your medications today by calling your pharmacy before you leave the hospital so that your treatment continuity is not broken. Home Health Attestation I certify that this patient is under my care and that I, or a physicians real estate executive assistant working with me, had a face to-face encounter that meets the home health [id number] encounter requirements with this patient. The encounter with the patient was in whole, or in part, for the following medical condition, which is the primary reason for home health care (list medical condition): I certify that, based on my findings, the following services are medically necessary home health services: My clinical findings support the need for the above services because: Further, I certify that my clinical findings support that this patient is homebound (i.e. absences from home require considerable and taxing effort and are for medical reasons or catholic services or infrequently or of short duration when for other reasons) because: Certification for Home Health Services: Based on the above findings, I certify that this patient is confined to the home and needs intermittent fdc care, physical therapy and/or speech therapy or continues to need occupational therapy. The patient is under my care, and I have initiated the establishment of the plan of care. This patient will be followed by a physician who will periodically review the plan of care. Total Time Total Time Spent Total Time Spent (In Minutes): 45 Discharge Plan Discharge Items Patient Disposition: Home - Self-Care Reason For Visit: L SIDED ABDOMINAL PAIN, ONGOING ANEMIA Discharge Diagnosis: Likely UTI ISO increased hematuria and lower abdominal pain History of hematuria in the setting of prostate cancer status post radiation and radiation cystitis Condition on Discharge: Fair Activity: Resume your previous activity Non-emergency contact: Primary Care Provider Call non-emergency contact if: you have any medication questions and your symptoms worsen Follow-up/Referrals: Francisco Cisse MD [Primary Care Provider] - Diet: Heart Healthy Diet Texture: Easy to Chew Addtl Attending Provider Instructions: Patient is being discharged to home with following instruction at the point of discharge: Follow-up with your primary care physician within a week time and likely you will need labs CBC/CMP/magnesium/phosphorus. You are diagnosed with UTI, you will be discharged on antibiotic to complete the course. Please follow-up on the final results of urine culture with your PCP office within a week time to make sure that you are receiving appropriate antibiotic treatment. Follow-up with your nephrology as prior. Closely follow-up with your urology within a week time upon discharge. Maintain follow-up with the wound clinic for evaluation of bariatric therapy for radiation cystitis. Follow up with your GI doctor as prior. Follow-up with your [facility] appointment for evaluation of your liver mass. You will need frequent ultrasound abdomen every few weeks time, and further evaluation for need for paracentesis based on your clinical evaluation at the time. Coordinate with your PCP office to set up the test. Take your medications as prescribed. Please make sure that you are able to get your medications today by calling your pharmacy before you leave the hospital so that your treatment continuity is not broken. Pending Studies at Discharge: Yes Stand-Alone Forms: My [facility], Smoking Cessation Medications and DC Order Prescriptions: New cefdinir 300 mg capsule 300 mg PO BID 7 Days Qty: 14 0RF Continued allopurinol 100 mg Tablet 100 mg PO QAM furosemide [Lasix] 20 mg Tablet 40 mg PO QAM ferrous sulfate [iron] 325 mg (65 mg iron) Tablet 650 mg PO QAM Men's 50 Plus Multivitamin 400-20-370 mcg Tablet 1 tab PO DAILY Rx Instructions: Unable to verify OTC meds with patient at this date/time. Probiotic 5 billion cell Capsule, Sprinkle 1 cap PO QAM finasteride 5 mg Tablet 5 mg PO QAM insulin glargine [Lantus U-100 Insulin] 100 unit/mL solution 25 unit subcut QPM pantoprazole 40 mg tablet,delayed release (DR/EC) 40 mg PO AMPM duloxetine 30 mg capsule,delayed release(DR/EC) 30 mg PO QAM Xifaxan 550 mg tablet 550 mg PO AMHS oxybutynin chloride 5 mg Tablet 5 mg PO BID Qty: 60 0RF metoclopramide HCl 5 mg tablet 5 mg PO TID PRN (Reason: Nausea And Vomiting) mirtazapine 30 mg tablet 30 mg PO HS PRN (Reason: Sleep) Mag 64 64 mg Tablet,Delayed Release (Dr/Ec) 64 mg PO QAM Qty: 30 0RF acetaminophen [Tylenol Ex Str Rapid Release] 500 mg Tablet 1,000 mg PO BID MDD 2000mg/24hr PRN (Reason: Pain) lactulose [Kristalose] 10 gram packet 10 g PO BID Rx Instructions: hold for more than 3 more BMs Discharge Orders: Discharge Order (Routine); Ordered 03/20/24 Ordered By: Dangelo George Admission Data Admit Date/Time: 03/19/24 18:33 Attending Provider: Dangelo George Admit Provider: Ale Velazquez Primary Care Provider: Francisco Cisse Other Providers: Ale Velazquez
[2024-03-20 13:15] VITALS: BP 132/82; PULSE 87; RESP 15; O2SAT 94
--- OUTSIDE RECORDS SUMMARY | 2024-03-20 16:12 | External Medical Summary | Summary of Care ---
Author Name Unknown Organization [facility] [address] [facility] [address] Phone [phone] Care Team Providers Care Tree Driller Name Role Phone Francisco Cisse MD Primary Care Provider + Reason for Referral * Precert (Within 10 days (routine)) - Authorized Specialty Diagnoses / Procedures Referred By Chacho fleming Referred To Contact Radiology Diagnoses Cirrhosis of liver (HCC) Procedures IR PARACENTESIS Francisco Cisse MD [address] [place] [address] [address] Referral ID Status Reason Start Date Expiration Date V isits Requested Visits Authorized [id number] Authorized 03/17/2024 24 24 Reason for Visit * Reason Onset Date Comments Advice 03/16/2024 Encounter Details Date Type Department Care Team (Late st Contact Info) Description 03/16/2024 Telephone General Internal Medicine State [place] Av[place] [address] [place] [address] [address] Francisco Cisse MD [address] [place] [address] Advice Allergies No known active allergiesdocumented as of this encounter (statuses as of 03/17/2024) Medications Medication Sig Dispensed Refills Start Date [...] INSULIN AT DINNER DAILY 0 09/25/2022 Active Mirtazapine 30 MG Oral Tablet (Remeron)Indications [...] for nausea 90 Tablet 3 08/30/2023 Active Additional Information Patient not taking.Reported on 02/26/2024 Pantoprazole Sodium 40 MG Oral Tablet Delayed [...] Pain, Severe. 10 Tablet 0 01/30/2024 Active Additional Information Patient not taking.Reported on 02/26/2024 Albumin Human 25 % Intravenous SolutionIndications: Cirrhosis of liver with ascites, unspecified hepatic cirrhosis type (HCC) If paracentesis yields a total volume of more than 3 liters of fluid give 25% albumin as follows: 3 L- 5 L - Give 1 unit albumin (25 gm in 100 ml) 5 L - 7.5 L - Give 2 units albumin (25 gm in 100 ml x 2 ) 7.5 L - 12 L - Give 3 units albumin Infuse albumin in 30 to 60 minute each unit 50 mL 0 02/27/2024 Active Triamcinolone Acetonide 0.1 % External Cream (Aristocort) Apply to psoriatic lesions on arms, legs, hands, feet, chest, back, abdomen twice a day as needed for 2-3 weeks 453.6 g 0 03/13/2024 Active Albumin Human 25 % Intravenous SolutionIndications: Cirrhosis of liver (HCC) If paracentesis yields a total volume of more than 3 liters of fluid give 25% albumin as follows: 3 L- 5 L - Give 1 unit albumin (25 gm in 100 ml) 5 L - 7.5 L - Give 2 units albumin (25 gm in 100 ml x 2 ) 7.5 L - 12 L - Give 3 units albumin Infuse albumin in 30 to 60 minute each unit 300 mL 100 03/17/2024 Active Hospital, Clinic, or Other Facility Administered [...] as of this encounter (statuses as of 03/17/2024) Active Problems Problem Noted Date Diagnosed Date [...] as of this encounter (statuses as of 03/17/2024) Resolved Problems Problem Noted Date Diagnosed Date [...] as of this encounter (statuses as of 03/17/2024) Immunizations Name Administration Dates Next Due COVID-19 mRNA, LNP-s, No Pre serve, 2-Dose Series ([employer]) 03/08/2021,02/15/2021 HepA Inact/HepB Recomb>=18yrs old 12/04/2019,04/2019,05/20/2019 11/19/2019 PPD 06/18/2017, 3,01/09/2012,0306/2011 Pneumococcal Conjugate Vacc, 13 Valent (Prevnar) 05/01/2017 Pneumococcal Polysaccharide PPV23 (Pneumovax) 08/28/2022,10/25/2015,07/14/2012 Season Influenza, Quad, PF, Adjuvanted, 65+ Yrs, IM (FLUAD) 10/07/2020(Deferred: Patient Refused - pt says he already had his shot last month at [facility] Lyons and Mckinley Cobian [...] encounter Miscellaneous Notes * Telephone Encounter - Keyonna Quiroz RN - 03/17/2024 11:23 AM EDT Faxed orders /labs/albumin order to Inga at [facility]. She will reach out to pt to schedule paracentesis * Telephone Encounter - Keyonna Quiroz RN - 03/17/2024 10:05 AM EDT We can set up for paracentesis.. GI nurses - one was ordered on 02/26 and completed 03/03 If he doesn't already have standing orders for every 2 weeks, let's set that up. - remove up to 7L - CBC, PT/IN prior. - ascitic fuid for cell count, culture - albumin replacement per protocol: If paracentesis yields a total volume of more than 3 liters of fluid give 25% albumin as follows: 3 L - 5 L - Give 1 unit albumin (25 gm in 100 ml) 5 L - 7.5 L - Give 2 units albumin (25 gm in 100 ml x 2) 7.5 L - 12 L - Give 3 units albumin He may already have all these in place and if he doesn't then he just needs to call for appt. Lamar Called [facility], need new order Pended orders for you to sign Lamar Will fax when signed. Talked to pt. Is taking Laxix 40 mg daily in the morning. Denies no increased SOB with activity. Pt prefers Thurs for paracentesis and not this afternoon as [facility] had a 1230 opening. * Telephone Encounter - Francisco Cisse MD - 03/17/2024 8:15 AM EDT Can we try to get a weight? Make sure compliant with nacho Lancaster, please see message, can he have a paracentesis? Thank you! * Telephone Encounter - Sherlyn Lees LPN - 03/16/2024 4:22 PM EDT HH Concerns An RN, Calling from: [facility] Report/Concerns of: increased abd girth Symptoms: see narrative Vitals: T98.2 P79 RR18 BP 120/70 SP O2 97% RA Lung sounds clear Weight scale kept giving Error message. Narrative: pt had increased to abd girth. On 03/10 116 cm, today 126 cm. He has hx of paracentesis. He feels abd feels larger and also reports having increased sob with activity. Call back Marioy phone [phone] or [facility] [phone] with any advice or orders. Please fax new orders to [phone] * Telephone Encounter - Lindsey Cruz OSA - 03/16/2024 4:21 PM EDT Reason for patient's call: Marioy from [facility] calling with update on pt. Caller was transferred to Sherlyn at the nurse line. documented in this encounter Plan of Treatment Upcoming Encounters Date Type Department Care Team (Late st Contact Info) Description 03/18/2024 11:00 AM EDT Office Visit Urology, [facility] 132 [facility] [place] [address] Frank Peraza MD [address] [address] [place] [address] 03/24/2024 2:30 PM EDT Office Visit Hematology/Oncology [facility] [place] 200 [facility] [place] [phone] Ayaka Tatum CRNP 400 [facility] [place] [address] 03/30/2024 12:00 PM EDT Office Visit Family Practice [facility] 132 [facility] [place] [address] Kristen Vences DO [address] [facility] [place] [address] 03/31/2024 7:05 AM EDT Laboratory Lab Mobile Phlebotomy [facility] [address] [facility] [place] [address] Mvmg, [facility] [address] [facility] [place] [address] 04/07/2024 10:00 AM EDT Office Visit Gastroenterology, [facility] 132 [facility] [place] [address] Lamar Tatum CRNP [address] [facility] [place] [address] 04/14/2024 7:05 AM EDT Laboratory Lab Mobile Phlebotomy [facility] [address] [place] [address] M[facility] [address] [facility] [place] [address] 04/28/2024 7:05 AM EDT Laboratory Lab Mobile Phlebotomy [facility] [address] [place] [address] Mvmg, [facility] [address] [place] [address] 05/12/2024 7:05 AM EDT Laboratory Lab Mobile Phlebotomy [facility] [address] [place] [address] Mvmg, [facility] [address] [place] [address] 05/26/2024 7:05 AM EDT Laboratory Lab Mobile Phlebotomy [facility] [address] [place] [address] Mvmg, [facility] [address] [facility] [address] 06/09/2024 7:05 AM EDT Laboratory Lab Mobile Phlebotomy [facility] [address] [place] [address] Mvmg, [facility] [address] [place] [address] 06/23/2024 7:05 AM EDT Laboratory Lab Mobile Phlebotomy [facility] [address] [facility] [place] [address] Mvmg, [facility] [address] [facility] [place] [address] 07/07/2024 7:05 AM EDT Laboratory Lab Mobile Phlebotomy [facility] [address] [place] [address] Mvmg, [facility] [address] [place] [address] 07/21/2024 7:05 AM EDT Laboratory Lab Mobile Phlebotomy [facility] [address] [place] [address] Mvmg, [facility] [address] [place] [address] 08/04/2024 7:05 AM EDT Laboratory Lab Mobile Phlebotomy [facility] [address] [place] [address] Mvmg, [facility] [address] [place], [place] [address] 08/18/2024 7:05 AM EDT Laboratory Lab Mobile Phlebotomy [facility] [address] [facility] [place] [address] Mvmg, Gml [facility] Draw [address] [facility] [place], [place] [address] 08/20/2024 10:15 AM EDT Office Visit Ophthalmology, [facility] 132 [facility] [place] [address] Cody Gonzalez, DO [address] [place] [address] 09/01/2024 7:05 AM EDT Laboratory Lab Mobile Phlebotomy [facility] [address] [facility] [place] [address] Mvmg, Gml [facility] Draw [address] [facility] [place], [place] [address] 09/15/2024 7:05 AM EDT Laboratory Lab Mobile Phlebotomy [facility] [address] [facility] [place], [place] [address] Mvmg, Gml [facility] Draw [address] [facility] [place], [place] [address] 10/12/2024 10:20 AM EST Office Visit Pulmonary Medicine, [facility] 132 [facility] [place] [address] Jordan Stanley MD [address] [address] Scheduled Orders Name Type Priority Associated Diagnoses Order Schedule IR PARACENTESIS Medical Imaging Routine Cirrhosis of liver (HCC) Every 2 Weeks for 24 Occurrences starting 03/17/2024 until 04/16/2025 CBC WITH WBC DIFFERENTIAL Lab Routine Cirrhosis of liver (HCC) 24 Occurrences starting 03/17/2024 until 03/17/2025 PT INR Lab Routine Cirrhosis of liver (HCC) 24 Occurrences starting 03/17/2024 until 03/17/2025 CELL COUNT WITH DIFFERENTIAL, BODY FLUID Lab Routine Cirrhosis of liver (HCC) 24 Occurrences starting 03/17/2024 until 03/17/2025 CULTURE, BODY FLUID, AEROBIC AND ANAEROBIC Lab Routine Cirrhosis of liver (HCC) 24 Occurrences starting 03/17/2024 until 03/17/2025 Scheduled Procedures Name Priority Associated Diagnoses Date/Ti [...] 01/17/2024 01/17/2023, , 01/17/2023, Additional history exists Diabetic Foot Exam 03/06/2024 03/06/2023, 0 01/03/2022, 03/02/2021, Additional history exists HbA1c 05/28/2024 11/27/2023, 05/03, 01/28/2023, Additional history exists Albumin/Creatinine Ratio 07/12/2024 023, 10/01/2022, 09/11/2021, Additional history exists COLONOSCOPY-ANNUAL AGES 18-100 08/09/2024 08/09/2023, 11/07/2022, 11/07/2022, Additional history exists GFR 08/28/2024 02/26/2024, 01/30, 01/24/2024, Additional history exists CKD PHOS USE SMARTSET 78028 02/25/202501/31, 01/28/2023, 07/26/2022, Additional history exists CKD HGB USE SMARTSET 41089 03/03/202503/03, 03/03/2024, 02/26/2024, Additional history exists Lipid Panel 01/28/2028 01/28/2023, [...] this encounter Medical Devices Implanted Type Area Fitting Room Checker Device Identifier Shelf Expiration Date Model / Serial / Lot Clareon Iol Aspheric Hydrophobic Acrylic Iol Implanted:Qty: 1 on 04/23/2023 by Cody Gonzalez DO at OR [facility] Lens Left: Eye 11/12/2025 CNA0T0 / [id number] / Viatorr Tips Endoprosthesis 8-10 Mm X 8cm / 2cm Implanted:Qty: 1 on 10/07/2020 by Go Alvarado MD at [facility] Right: Abdomen 03/03/2023 [id number] / / [id number] Description:Viatorr TIPS End oprosthesis 8-10 mm x 8cm / 2cm, Manufactored by [employer] Syr Pf 2ml Embospheres 100-300 - [id number] Implanted:Qty: 1 on 04/18/2021 by Kevin Lim DO at OR [facility] Left: Abdomen [employer] [id number] 11/25/2023 S220GH / / [id number] Lipiodol Injection - [id number] Implanted:Qty: 1 on 03/28/2022 at [facility] [employer] 03/01/2023 16742-63 -2 / / [id number] Syr Pf 2ml [facility] 100-300 - [id number] Implanted:Qty: 1 on 03/28/2022 at [facility] [employer] [id number] 08/31/2024 S220GH / / [id number] Clareon Iol Aspheric Hydrophobic Acrylic Iol Implanted:Qty: 1 on 04/02/2023 by Cody Gonzalez DO at [facility] Right: Eye JAZMIN 11/12/2025 CNA0T0 / [id number] / documented as of this encounter Visit Diagnoses Diagnosis Cirrhosis of liver (HCC)- Primary Cirrhosis of liver without mention of alcohol documented in this encounter Advance Directives Documents on File Type Date Recorded Patient Drop Forger Expl anation Advance Directives and Living Will 12/11/2022 ADVANCE DIRECTIVE / LIVING WILL LIVING WILL Power of Impregnation Operator 12/11/2022 POWER OF A TTORNEY Latest [...] the patient have Health Care Power of Impregnation Operator? No Care Teams Tree Driller Relationship Specialty Start Date End Date Francisco Cisse MD [address] [place] [address] PCP - General Internal Medicine 09/04/21 documented as of this encounter
--- OUTSIDE RECORDS SUMMARY | 2024-03-20 16:12 | External Medical Summary | Summary of Care ---
Author Name Unknown Organization [facility] Address [address] [facility] [address] Phone [phone] Care Team Providers Care Commercial Sales Consultant Name Role Phone Francisco Cisse MD Primary Care Provider + Reason for Referral * Precert (Within 10 days (routine)) - Authorized Specialty Diagnoses / Procedures Referred By Chacho fleming Referred To Contact Radiology Diagnoses Cirrhosis of liver (HCC) Procedures IR PARACENTESIS Francisco Cisse MD [address] [place] [address] Referral ID Status Reason Start Date Expiration Date V isits Requested Visits Authorized [id number] Authorized 03/17/2024 24 24 Reason for Visit * Reason Onset Date Comments Advice 03/16/2024 Encounter Details Date Type Department Care Team (Late st Contact Info) Description 03/16/2024 Telephone General Internal Medicine State [place] Avile[place] [address] [place] [address] [address] Francisco Cisse MD [address] [place] [address] [address] Advice Allergies No known active allergiesdocumented as [...] mRNA, LNP-s, No Pre serve, 2-Dose Series (NPR) 03/08/2021,02/15/2021 HepA Inact/HepB Recomb>=18yrs old 12/04/2019,04/2019,05/20/2019 11/19/2019 PPD 06/18/2017, 3,01/09/2012,0306/2011 Pneumococcal Conjugate Vacc, 13 Valent (Prevnar) 05/01/2017 Pneumococcal Polysaccharide PPV23 (Pneumovax) 08/28/2022,10/25/2015,07/14/2012 Season Influenza, Quad, PF, Adjuvanted, 65+ Yrs, IM (FLUAD) 10/07/2020(Deferred: Patient Refused - pt says he already had his shot last month at [facility] Lyons and Mckinley [...] Faxed orders /labs/albumin order to Inga at [facility]. She will reach out to pt [...] needs to call for appt. Lamar Called [facility], need new order Pended orders for you to sign Lamar Will fax when signed. Talked to pt. Is taking Laxix 40 mg daily in the morning. Denies no increased SOB with activity. Pt prefers Thurs for paracentesis and not this afternoon as [facility] had a 1230 opening. * Telephone Encounter - Francisco Cisse MD - 03/17/2024 8:15 AM EDT Can we try to get a weight? Make sure compliant with nacho Lancaster, please see message, can he have a paracentesis? Thank you! * Telephone Encounter - Sherlyn Lees LPN - 03/16/2024 4:22 PM EDT HH Concerns An RN, Calling from: [facility] Report/Concerns of: increased abd girth Symptoms: see narrative Vitals: T98.2 P79 RR18 BP 120/70 SP O2 97% RA Lung sounds clear Weight scale kept giving Error message. Narrative: pt had increased to abd girth. On 03/10 116 cm, today 126 cm. He has hx of paracentesis. He feels abd feels larger and also reports having increased sob with activity. Call back Marioy phone [phone] or [facility] [phone] with any advice or orders. Please fax new orders to [phone] * Telephone Encounter - Lindsey Cruz OSA - 03/16/2024 4:21 PM EDT Reason for patient's call: Marioy from [facility] calling with update on pt. Caller was transferred to Sherlyn at the nurse line. documented in this encounter Plan of Treatment Upcoming Encounters Date Type Department Care Team (Late st Contact Info) Description 03/18/2024 11:00 AM EDT Office Visit Urology, [facility] [address] [facility] [place] [address] Frank Peraza MD [address] [address] [place] [address] 03/24/2024 2:30 PM EDT Office Visit Hematology/Oncology [facility] [place] 200 [facility] [place] [phone] Ayaka Tatum CRNP 400 [facility] [place] [address] 03/30/2024 12:00 PM EDT Office Visit Family Practice [facility] [address] [facility] [place] [address] Kristen Vences DO 132 [facility] [place] [address] 03/31/2024 7:05 AM EDT Laboratory Lab Mobile Phlebotomy [facility] [address] [facility] [place] [address] Mvmg, Gml [facility] Draw [address] [facility] [place] [address] 04/07/2024 10:00 AM EDT Office Visit Gastroenterology, [facility] [address] [facility] [place] [address] Lamar Tatum CRNP 132 [facility] [place] [address] 04/14/2024 7:05 AM EDT Laboratory Lab Mobile Phlebotomy [facility] [address] [address] Mvmg, Gml [facility] Draw [address] [facility] [place] [address] 04/28/2024 7:05 AM EDT Laboratory Lab Mobile Phlebotomy [facility] [address] [place] [address] Mvmg, Gml [facility] Draw [address] [facility] [place] [address] 05/12/2024 7:05 AM EDT Laboratory Lab Mobile Phlebotomy [facility] [address] [facility] [place] [address] Mvmg, Gml [facility] Draw [address] [facility] [place] [address] 05/26/2024 7:05 AM EDT Laboratory Lab Mobile Phlebotomy [facility] [address] [facility] [place] [address] Mvmg, Gml [facility] Draw [address] [facility] [place] [address] 06/09/2024 7:05 AM EDT Laboratory Lab Mobile Phlebotomy [facility] [address] [place] [address] Mvmg, Gml [facility] Draw [address] [place] [address] 06/23/2024 7:05 AM EDT Laboratory Lab Mobile Phlebotomy [facility] [address] [facility] [place] [address] Mvmg, Gml [facility] Draw [address] [facility] [place] [address] 07/07/2024 7:05 AM EDT Laboratory Lab Mobile Phlebotomy [facility] [address] [facility] [place] [address] Mvmg, Gml [facility] Draw [address] [place] [address] 07/21/2024 7:05 AM EDT Laboratory Lab Mobile Phlebotomy [facility] [address] [facility] [place] [address] Mvmg, Gml [facility] Draw [address] [facility] [place] [address] 08/04/2024 7:05 AM EDT Laboratory Lab Mobile Phlebotomy [facility] [address] [facility] [place] [address] Mvmg, Gml Mobile Home Draw [address], [place] [address] 08/18/2024 7:05 AM EDT Laboratory Lab Mobile Phlebotomy [facility] [address] [facility] [place] [address] Mvmg, Gml Mobile Home Draw [address] [facility] [place], [place] [address] 08/20/2024 10:15 AM EDT Office Visit Ophthalmology, [facility] 132 [facility] [place] [address] Cody Gonzalez, DO [address] [place] [address] 09/01/2024 7:05 AM EDT Laboratory Lab Mobile Phlebotomy [facility] [address] [facility] [place] [address] Mvmg, Gml Mobile Home Draw [address] [facility] [place], [place] [address] 09/15/2024 7:05 AM EDT Laboratory Lab Mobile Phlebotomy [facility] [address] [facility] [place], [place] [address] Mvmg, Gml Mobile Home Draw [address] [facility] [place], [place] [address] 10/12/2024 10:20 AM EST Office Visit Pulmonary Medicine, [facility] 132 [facility] [place] [address] Jordan Stanley MD [address] [address] Scheduled Orders Name Type Priority Associated Diagnoses [...] Additional history exists CKD PHOS USE SMARTSET 76391 02/25/202501/31, 01/28/2023, 07/26/2022, Additional history exists CKD HGB USE SMARTSET 46946 03/03/202503/03, 03/03/2024, 02/26/2024, Additional history exists Lipid [...] encounter Medical Devices Implanted Type Area Computer Language Coder Device Identifier Shelf Expiration Date Model / Serial / Lot Clareon Iol Aspheric Hydrophobic Acrylic Iol Implanted:Qty: 1 on 04/23/2023 by Cody Gonzalez DO at OR [facility] Lens Left: Eye 11/12/2025 CNA0T0 / [id number] / Viatorr Tips Endoprosthesis 8-10 Mm X 8cm / 2cm Implanted:Qty: 1 on 10/07/2020 by Go Alvarado MD at [facility] Right: Abdomen 03/03/2023 [id number] / / [id number] Description:Viatorr TIPS End oprosthesis 8-10 mm x 8cm / 2cm, Manufactored by [employer] Syr Pf 2ml Embospheres 100-300 - [id number] Implanted:Qty: 1 on 04/18/2021 by Kevin Lim DO at OR [facility] Left: Abdomen [employer] [id number] 11/25/2023 S220GH / / [id number] Lipiodol Injection - [id number] Implanted:Qty: 1 on 03/28/2022 at [facility] [employer] 03/01/2023 19335-30 -2 / / [id number] Syr Pf 2ml [facility] 100-300 - [id number] Implanted:Qty: 1 on 03/28/2022 at [facility] [employer] [id number] 08/31/2024 S220GH / / [id number] -[id number] Clareon Iol Aspheric Hydrophobic Acrylic Iol Implanted:Qty: 1 on 04/02/2023 by Cody Gonzalez DO at [facility] Right: Eye JAZMIN 11/12/2025 CNA0T0 / [id number] / documented as of this encounter Visit Diagnoses Diagnosis Cirrhosis of liver (HCC)- Primary Cirrhosis of liver without mention of alcohol documented in this encounter Advance Directives Documents on File Type Date Recorded Patient Picking Tech Expl anation Advance Directives and Living Will 12/11/2022 ADVANCE DIRECTIVE / LIVING WILL LIVING WILL Power of Refrigerator Crater 12/11/2022 POWER OF A TTORNEY Latest Code [...] the patient have Health Care Power of Refrigerator Crater? No Care Teams Commercial Sales Consultant Relationship Specialty Start Date End Date Francisco Cisse MD [address] [place] [address] PCP - General Internal Medicine 09/04/21 documented as of this encounter
--- OUTSIDE RECORDS SUMMARY | 2024-03-20 16:12 | External Medical Summary | Summary of Care ---
Author Name Unknown Organization [facility] Address [address] [address] Phone [phone] Care Team Providers Care Supervisor Insecticide Name Role Phone Francisco Cisse MD Primary Care Provider + Reason for Visit * Reason Comments Post-Op Encounter Details Date Type Department Care Team (Late st Contact Info) Description 03/18/2024 11:00 AM EDT Office Visit Urology, [facility] [address] [place] [address] Frank Peraza MD 27 [facility] [address] [place] [address] Hematuria, gross*; Abnormal cystoscopy; Elevated prostate specific antigen (PSA) Allergies No known active allergiesdocumented as of this encounter (statuses as of 03/18/2024) Medications Medication Sig Dispensed Refills Start Date [...] each unit 300 mL 100 03/17/2024 Active documented as of this encounter (statuses as of 03/18/2024) Active Problems Problem Noted Date Diagnosed Date [...] as of this encounter (statuses as of 03/18/2024) Resolved Problems Problem Noted Date Diagnosed Date [...] as of this encounter (statuses as of 03/18/2024) Immunizations Name Administration Dates Next Due COVID-19 mRNA, LNP-s, No Pre serve, 2-Dose Series (Aula 7) 03/08/2021,02/15/2021 HepA Inact/HepB Recomb>=18yrs old 12/04/2019,04/2019,05/20/2019 11/19/2019 PPD 06/18/2017, 3,01/09/2012,06/2011 Pneumococcal Conjugate Vacc, 13 Valent (Prevnar) 05/01/2017 Pneumococcal Polysaccharide PPV23 (Pneumovax) 08/28/2022,10/25/2015,07/14/2012 Season Influenza, Quad, PF, Adjuvanted, 65+ Yrs, IM (FLUAD) 10/07/2020(Deferred: Patient Refused - pt says he already had his shot last month at [facility] Handy Lyons and Mckinley Cobian made [...] Progress Notes * Frank Peraza MD - 03/18/2024 11:00 AM EDT [id number] PCP: [place] [address] Luis Hale is a 73 year old male, who presents for one-month follow-up of his history of bladder inflammation, hepatocellular carcinoma, recurrent hematuria and anemia. Patient's past notes reviewed. Patient is here today with his son. He continues to have intermittent hematuria passage of clots,although a couple of days without hematuria was present. He has been transfused once since his lastvisit. Last PSA remains undetectable. Overall, the patient feels somewhat improved since his last visit. Patient is scheduled to be seen in the Wound Care Department for consideration of hyperbaric oxygen this Saturday. Gross hematuria: Bipolar TURP , bladder biopsy, fulguration. January 2024: Component Final Diagnosis A. Prostate, prostate chips, transurethral resection: Benign prostatic and urothelial tissue with predominant stromal hyperplasia and focal mild chronic inflammation No evidence of neoplasia Specimen weight: 2.5 grams B. Urinary bladder, bladder neck tissue, transurethral resection: Urothelium and stroma with focal early papillary proliferation and mild atypia (see NOTE). Mild active chronic cystitis with stromal edema and reactive changes. Prostate Cancer: Diagnosed Nov 2020. [place] 3+3 CAP in every core. High risk [...] from 07/19/2021 when it measured 1.3 cm. CBC Results: Results for orders placed or performed in visit on 03/17/24 CBC Result Value Ref Range WBC 4.11 4.00 - 10.80 K/uL RBC 2.47 4.50 - 5.25 M/uL HGB 8.4 (L) 14.0 - 16.8 g/dL HCT 26.1 (L) 40.0 - 48.4 % MCV 105.7 82.0 - 99.5 fL MCH 34.0 27.0 - 34.0 pg MCHC 32.2 32.0 - 36.0 g/dL RDW 21.1 11.5 - 15.5 % PLT 121 (L) 140 - 400 K/uL MPV 12.8 6.6 - 11.1 fL nRBCs 0 <=0 /100 WBCs PSA Results: Lab Results Component Value Date/Time [...] 8 hours as needed for Pain (fever). noodlsTouch Verio In Vitro Strip (Glucose Blood) Use to test blood sugars 3 times a day 300 Strip 5 BD Pen Needle Elizabeth 2nd Gen 32G X 4 MM USE DIRECTED TO ADMINISTER INSULIN AT DINNER DAILY Mirtazapine 30 MG Oral Tablet (Remeron) Take [...] times a day, if needed for nausea (Patient not taking: Reported on 02/26/2024) 90 Tablet 3 Pantoprazole Sodium 40 MG [...] 6 hours as needed for Pain, Severe. (Patient not taking: Reported on 02/26/2024) 10 Tablet 0 Albumin Human 25 % Intravenous Solution If paracentesis yields a total volume of more than 3 litersof fluid give 25% albumin as follows: 3 L- 5 L - Give 1 unit albumin (25 gm in 100 ml) 5 L - 7.5 L - Give 2 units albumin (25 gm in 100 ml x 2 ) 7.5 L - 12 L - Give 3 units albumin Infuse albumin in 30 to 60 minute each unit 50 mL 0 Triamcinolone Acetonide 0.1 % External Cream (Aristocort) Apply to psoriatic lesions on arms, legs,hands, feet, chest, back, abdomen twice a day as needed for 2-3 weeks 453.6 g 0 Albumin Human 25 % Intravenous Solution If paracentesis yields a total volume of more than 3 litersof fluid give 25% albumin as follows: 3 L- 5 L - Give 1 unit albumin (25 gm in 100 ml) 5 L - 7.5 L - Give 2 units albumin (25 gm in 100 ml x 2 ) 7.5 L - 12 L - Give 3 units albumin Infuse albumin in 30 to 60 minute each unit 300 mL 100 No current facility-administered medications for this visit. Review of patient's allergies indicates: No Known [...] Heart disease Brother Other (Other) Brother Agent [place] exposure Neurological Disorder Daughter epilepsy No Known Problems Daughter Cervical Cancer Daughter Uterine cancer Daughter Thyroid cancer Daughter Cancer Grandmother (Paternal) unkown, in 80s Diabetes Other Hypertension Other Heart Disorder Other Stroke Other Past Surgical History: Procedure Laterality Date CATARACT SURGERY,COMPLEX Right 04/02/2023 EXTRACAPSULAR CATARACT REMOVAL COMPLEX WITH IOL performed by Cody Gonzalez DO at OR [facility] CATARACT SURGERY,COMPLEX Left 04/23/2023 LEFT EXTRACAPSULAR CATARACT REMOVAL COMPLEX WITH IOL performed by Cody Gonzalez DO at OR [facility] COLONOSCOPY 08/27/2005 [place]/hemorrhoids non internal COLONOSCOPY, DIAGNOSTIC (RECTUM) 04/16/2013 COLONOSCOPY FLEXIBLE PROXIMAL DIAGNOSTIC performed by Salvador Lopez MD at ENDOSCOPY [facility], adenomatous polyps repeat colonoscopy in 3 years COLONOSCOPY, DIAGNOSTIC (RECTUM) 05/03/2016 adenomatous polyps, diverticulosis, repeat 5 yrs/COLONOSCOPY FLEXIBLE PROXIMAL DIAGNOSTIC performedby Salvador Lopez MD at ENDOSCOPY [facility] COLONOSCOPY, DIAGNOSTIC (RECTUM) 07/19/2020 adenomatous & hyperplastic polyps, diverticulosis, repeat 3 yrs / [facility] COLONOSCOPY, DIAGNOSTIC (RECTUM) 11/30/2021 mild XRT proctitis, diverticulosis / COLONOSCOPY FLEXIBLE PROXIMAL DIAGNOSTIC performed by Barbara March DO at ENDOSCOPY [facility] COLONOSCOPY, DIAGNOSTIC (RECTUM) 02/01/2022 Mild XRT proctitis / COLONOSCOPY FLEXIBLE PROXIMAL DIAGNOSTIC performed by Barbara March DO at ENDOSCOPY [facility] COLONOSCOPY, DIAGNOSTIC (RECTUM) N/A 11/07/2022 poor prep/diverticulosis sigmoid colon/rectal angioectasias consistent with radiation proctopathy/Colonoscopy/[place] COLONOSCOPY, DIAGNOSTIC (RECTUM) N/A 08/09/2023 poor prep/moderate diverticulosis/hemorrhoids/biopsies show adenomatous and hyperplastic polyps/recall 1 years/Colonoscopy/[place] CT ABDOMEN W IV AND W ORAL CONTRAST 01/10/2010 CYSTOSCOPY/TREAT MED BLADDER TUMOR N/A 01/30/2024 CYSTOURETHROSCOPY WITH FULGURATION MEDIUM BLADDER TUMOR performed by Frank Peraza MD at [facility] EGD, FLEXIBLE, DIAGNOSTIC 07/22/2014 GE varices oozing blood, gastric polyp/ESOPHAGOGASTRODUODENOSCOPY (EGD), FLEXIBLE, TRANSORAL, DIAGNOSTIC performed by Juaquin Arrington MD at ENDOSCOPY [facility] EGD, FLEXIBLE, DIAGNOSTIC 07/23/2014 ESOPHAGOGASTRODUODENOSCOPY (EGD), FLEXIBLE, TRANSORAL, DIAGNOSTIC performed by Sophie Merino MD at [facility] EGD, FLEXIBLE, DIAGNOSTIC 06/02/2019 eso & gastric varices, gastric polyps/ESOPHAGOGASTRODUODENOSCOPY (EGD), FLEXIBLE, TRANSORAL, DIAGNOSTIC performed by Salvador Lopez MD at ENDOSCOPY [facility] EGD, FLEXIBLE, DIAGNOSTIC 03/25/2020 portal hypertensive gastropathy, esophageal varices / INPT [facility] EGD, FLEXIBLE, DIAGNOSTIC 07/19/2020 eso varices, portal hypertensive gastropathy, repeat 3 mo / [facility] EGD, FLEXIBLE, DIAGNOSTIC 10/25/2020 Portal hypertensive gastropathy, eso varices / [facility] EGD, FLEXIBLE, DIAGNOSTIC 08/202222 Grade I esophageal varices / [facility] EGD, FLEXIBLE, DIAGNOSTIC N/A 09/11/2022 grade II esophageal varices/gastric antral vascular ectasia, treated with APC/repeat 3 months/EGD/[place] EGD, FLEXIBLE, DIAGNOSTIC N/A 11/07/2022 grade III esophageal varices, banded/gastric antral vascular ectasia/repeat 2 months/EGD/[place] EGD, FLEXIBLE, DIAGNOSTIC N/A 02/01/2023 [facility]< egd. / single G2 varix, banded and varices eradicated / no specimens collected / egd in 1 to 2 months / EGD, FLEXIBLE, DIAGNOSTIC N/A 08/09/2023 portal hypertensive gastropathy/repeat 1 year/EGD/[place] EGD, FLEXIBLE, DIAGNOSTIC 05/22/2023 GAVE, repeat 4-6 wks / [facility] IR CANCER THERASPHERE EMBOLIZATION 03/28/2022 IR EMBOLIZATION Left 04/18/2021 IMAGING SUPERVISION & INTERPRETATION TRANSCATHETER THERAPY, EMBOLIZATION performed by Kevin Lim DO at OR [facility] IR EMBOLIZATION ARTERIAL NON HEMMORHAGE Left 02/21/2022 EMBOLIZATION ARTERIAL; SUPERVISION & INTERPRETATION performed by Kevin Lim DO at OR [facility] IR EMBOLIZATION ARTERIAL NON HEMMORHAGE Left 06/05/2022 EMBOLIZATION ARTERIAL; SUPERVISION & INTERPRETATION performed by Kevin Lim DO at OR [facility] IR VENOUS TIPS 10/07/2020 REMOVAL OF TONSILS, UNDER AGE 12 age 6-7 Tonsils Removal,<12 Y/O SIGMOIDOSCOPY, DIAGNOSTIC 04/12/2022 radiation proctitis, diverticulosis / [facility] TIPS, REVISION N/A 01/24/2021 REVISION TRANSVENOUS INTRAHEPATIC PORTOSYSTEMIC SHUNT performed by Kevin Lim DO at OR [facility] TIPS, REVISION Right 10/19/2022 REVISION TRANSVENOUS INTRAHEPATIC PORTOSYSTEMIC SHUNT performed by oHwie Valdovinos MD at OR [facility] TIPS, REVISION Right 02/20/2023 REVISION TRANSVENOUS INTRAHEPATIC PORTOSYSTEMIC SHUNT performed by Kevin Lim DO at OR [facility] Past Medical History: Diagnosis Date Acquired thrombocytopenia (HCC) 09/05/2017 Allergic rhinitis Anemia 12/2023 required transfusion Anxiety and depression Aortic valve sclerosis 02/01/2023 Benign neoplasm of colon 04/16/2013 COLONOSCOPY FLEXIBLE PROXIMAL DIAGNOSTIC performed by Salvador Lopez MD at ENDOSCOPY [facility], adenomatous polyps repeat colonoscopy in [...] cystoscopy R39.9 Hematuria, gross R31.0 Constitutional: (-) fever, (-) chills, and (+) weakness Eyes: (+) corrective lenses ENT: (-) stridor Male : see HPI Musculoskeletal: (+) muscle weakness Neurology: (+) loss of balance Pulmonary: (+) dyspnea with exertion Physical Exam Nursing note reviewed. Constitutional: General: He is not in acute distress. Appearance: He is ill-appearing. He is not toxic-appearing. Comments: In wheelchair HENT: Head: Normocephalic and atraumatic. Right Ear: External ear normal. Left Ear: External ear normal. Nose: Nose normal. Mouth/Throat: Mouth: Mucous membranes are moist. Eyes: Extraocular Movements: Extraocular movements intact. Cardiovascular: Pulses: Normal pulses. Pulmonary: Effort: Pulmonary effort is normal. No respiratory distress. Abdominal: General: There is distension. Palpations: Abdomen is soft. Skin: Coloration: Skin is jaundiced. Neurological: Mental Status: He is oriented to person, place, and time. Motor: Weakness present. Gait: Gait abnormal. Psychiatric: Behavior: Behavior normal. Thought Content: Thought content normal. Impression/Plan: 73-year-old male with history of severe radiation cystitis, persistent hematuria, BPH with bladder outlet obstruction. Findings reviewed with the patient and son. Will proceed with hyperbaric oxygen therapy as scheduled. Risks and benefits reviewed. Will see the patient back in 2-3 months to check on his progress. Hecan contact us sooner with any significant deterioration, would have to consider diversion with bilateral percutaneous nephrostomies which I suspect will continue to be problematic. Patient vocalizesgood understanding of the treatment plan. Above content is personally reviewed. Frank Peraza MD 7:40 AM 03/18/2024 documented in this encounter Nursing Notes * Kaylie Glass LPN - 03/18/2024 10:56 AM EDT 1 month ret. Patient presents with son. Hyperbaric appt scheduled 03/19, still passing blood & clots. documented in this encounter Plan of Treatment Upcoming Encounters Date Type Department Care Team (Late st Contact Info) Description 03/24/2024 2:30 PM EDT Office Visit Hematology/Oncology [address] [place] [id number] Ayaka Tatum CRNP [address] [facility] [place] [address] 03/30/2024 12:00 PM EDT Office Visit Family Practice [facility] [address] [facility] [place] [address] Kristen Vences DO [address] [place] [address] 03/31/2024 7:05 AM EDT Laboratory Lab Mobile Phlebotomy [facility] [address] [facility] [place] [address] Mvmg, Gml Mobile Home Draw [address] [facility] [place] [address] 04/07/2024 10:00 AM EDT Office Visit Gastroenterology, [facility] [address] [place] [address] Lamar Tatum CRNP [address] [facility] [address] 04/14/2024 7:05 AM EDT Laboratory Lab Mobile Phlebotomy [facility] [address] [facility] [place] [address] Mvmg, Gml Mobile Home Draw [address] [facility] [place] [address] 04/28/2024 7:05 AM EDT Laboratory Lab Mobile Phlebotomy [facility] [address] [email or web address] [address] Mvmg, Gml Mobile Home Draw [email or web address] [place] [address] 05/12/2024 7:05 AM EDT Laboratory Lab Mobile Phlebotomy [facility] [address] [email or web address] [address] Mvmg, Gml Mobile Home Draw [email or web address] [place] [address] 2024 2:30 PM EDT Office Visit Urology Lynnette Fitzpatrick [address] [place] [address] [place] [address] Frank Peraza MD [address] [place] [address] [place] [address] 05/26/2024 7:05 AM EDT Laboratory Lab Mobile Phlebotomy [facility] [email or web address] [facility] [place] [address] Mvmg, Gml Mobile Home Draw [email or web address] [facility] [place] [address] 06/09/2024 7:05 AM EDT Laboratory Lab Mobile Phlebotomy [facility] [email or web address] [facility] [place] [address] Mvmg, Gml Mobile Home Draw [email or web address] [facility] [place] [address] 06/23/2024 7:05 AM EDT Laboratory Lab Mobile Phlebotomy [facility] [email or web address] [facility] [place] [address] Mvmg, Gml Mobile Home Draw [address] [place] [employer] [facility] [place] [address] 07/07/2024 7:05 AM EDT Laboratory Lab Mobile Phlebotomy [facility] [address] [email or web address] [address] Mvmg, Gml Mobile Home Draw [email or web address] [facility] [place] [address] 07/21/2024 7:05 AM EDT Laboratory Lab Mobile Phlebotomy [facility] [email or web address] [facility] [place] [address] Mvmg, Gml Mobile Home Draw [email or web address] [facility] [place] [address] 08/04/2024 7:05 AM EDT Laboratory Lab Mobile Phlebotomy [facility] [email or web address] [place], [place] [address] Mvmg, Gml Mobile Home Draw [address] [email or web address] [address] 08/18/2024 7:05 AM EDT Laboratory Lab Mobile Phlebotomy [facility] [email or web address] [place], [place] [address] Mvmg, Gml Mobile Home Draw [address] [place] [employer] [place], [place] [address] 08/20/2024 10:15 AM EDT Office Visit Ophthalmology, [facility] [address] [place] [address] Cody Gonzalez, DO [facility] [place] [address] 09/01/2024 7:05 AM EDT Laboratory Lab Mobile Phlebotomy [facility] [address] [email or web address] [address] Mvmg, Gml Mobile Home Draw [address] [facility] [place], [place] [address] 09/15/2024 7:05 AM EDT Laboratory Lab Mobile Phlebotomy [facility] [address] [email or web address] [address] Mvmg, Gml Mobile Home Draw [address] [place] [address] 10/12/2024 10:20 AM EST Office Visit Pulmonary Medicine, [address] [place] [address] Jordan Stanley MD [address] [place] [address] Scheduled Procedures Name Priority Associated Diagnoses Date/Ti [...] Additional history exists CKD PHOS USE SMARTSET 01072 02/25/202501/31, 01/28/2023, 07/26/2022, Additional history exists CKD HGB USE SMARTSET 34591 03/17/202503/17, 03/17/2024, 03/03/2024, Additional history exists Lipid Panel 01/28/2028 01/28/2023, [...] this encounter Medical Devices Implanted Type Area Revenue Field Agent Device Identifier Shelf Expiration Date Model / Serial / Lot Clareon Iol Aspheric Hydrophobic Acrylic Iol Implanted:Qty: 1 on 04/23/2023 by Cody Gonzalez DO at OR [facility] Lens Left: Eye 11/12/2025 [id number] / [id number] / Viatorr Tips Endoprosthesis 8-10 Mm X 8cm / 2cm Implanted:Qty: 1 on 10/07/2020 by Go Alvarado MD at [facility] Right: Abdomen 03/03/2023 [id number] / / [id number] Description:Viatorr TIPS End oprosthesis 8-10 mm x 8cm / 2cm, Manufactored by [employer] Syr Pf 2ml Embospheres 100-300 - [id number] Implanted:Qty: 1 on 04/18/2021 by Kevin Lim DO at OR [facility] Left: Abdomen [employer] [id number] 11/25/2023 [id number] / / [id number] Lipiodol Injection - [id number] Implanted:Qty: 1 on 03/28/2022 at [facility] [employer] 03/01/2023 [id number] 01-2 / / [id number] Syr Pf 2ml Embospheres 100-300 - [id number] Implanted:Qty: 1 on 03/28/2022 at [facility] [employer] [id number] 08/31/2024 S220GH / / [id number] -[id number] Clareon Iol Aspheric Hydrophobic Acrylic Iol Implanted:Qty: 1 on 04/02/2023 by Cody Gonzalez DO at OR [facility] Right: Eye JAZMIN 11/12/2025 CNA0T0 / [id number] / documented as of this encounter Visit Diagnoses Diagnosis Hematuria, gross- Primary Gross hematuria Abnormal cystoscopy Other nonspecific abnormal finding Elevated prostate specific antigen (PSA) documented in this encounter Advance Directives Documents on File Type Date Recorded 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 No Care Teams Supervisor Insecticide Relationship Specialty Start Date End Date Francisco Cisse MD [address] [place] [address] PCP - General Internal Medicine 09/04/21 documented as of this encounter
--- OUTSIDE RECORDS SUMMARY | 2024-03-20 16:12 | External Medical Summary ---
Author Name Unknown Address Unknown Organization K01:LABORATORY [address] [address] Laboratory Report Ordering Provider Test Date Status NEELAM RICCI 03/17/2024 10:23:00 Final Observation Date Value Abnormality Reference (Units ) Status WBC, Total 03/17/2024 10:23:00 4.11 4.00-10.80 (K/uL) Final RBC 03/17/2024 10:23:00 2.47 4.50-5.25 (M/uL) Final Hemoglobin 03/17/2024 10:23:00 8.4 Below low normal 14.0-16.8 (g/dL) Final HCT 03/17/2024 10:23:00 26.1 Below low normal 40.0-48.4 (%) Final MCV 03/17/2024 10:23:00 105.7 82.0-99.5 (fL) Final MCH 03/17/2024 10:23:00 34.0 27.0-34.0 (pg) Final MCHC 03/17/2024 10:23:00 32.2 32.0-36.0 (g/dL) Final RDW 03/17/2024 10:23:00 21.1 11.5-15.5 (%) Final Platelets 03/17/2024 10:23:00 121 Below low normal 140-400 (K/uL) Final MPV 03/17/2024 10:23:00 12.8 6.6-11.1 (fL) Final Nucleated erythrocytes/100 leukocytes [Ratio] in Blood by Automated count 03/17/2024 10:23:00 0 <=0 (/100 WBCs) Final Performing Location LAB[facility]ATORY [facility] [place] [facility] [address]
--- OUTSIDE RECORDS SUMMARY | 2024-03-20 16:12 | External Medical Summary ---
Author Name Unknown Address Unknown Organization K01:LABORATORY [facility] [place] - [address] [facility] [address] Laboratory Report Ordering Provider Test Date Status NEELAM RICCI 03/17/2024 10:23:00 Final Observation Date Value Abnormality Reference (Units ) Status SYNC LEUKOCYTES IN BLOOD BY AUTOMATED COUNT 03/17/2024 10:23:00 4.11 4.00-10.80 (K/uL) Final Segs 03/17/2024 10:23:00 70.8 40.0-75.0 (%) Final Lymphs % 03/17/2024 10:23:00 16.8 Below low normal 18.0-42.0 (%) Final Monos 03/17/2024 10:23:00 5.6 1.0-11.0 (%) Final Eosinophils 03/17/2024 10:23:00 5.6 0.0-6.0 (%) Final Basos 03/17/2024 10:23:00 0.7 0.0-2.0 (%) Final Immature Granulocyte, Percent 03/17/2024 10:23:00 0.5 0.0-2.0 (%) Final Absolute Segs 03/17/2024 10:23:00 2.91 1.80-7.70 (K/uL) Final Lymphs, absolute 03/17/2024 10:23:00 0.69 Below low normal 1.00-4.80 (K/ul) Final Monos, Abs 03/17/2024 10:23:00 0.23 0.00-1.10 (K/uL) Final Eos, Abs 03/17/2024 10:23:00 0.23 0.00-0.70 (K/uL) Final Basos, Abs 03/17/2024 10:23:00 0.03 0.00-0.20 (K/uL) Final Immature Granulocytes, Number 03/17/2024 10:23:00 0.02 0.00-0.20 (K/uL) Final Performing Location LABORATORY [facility] [place] - [address] [facility] [address]
--- OUTSIDE RECORDS SUMMARY | 2024-03-20 16:13 | External Medical Summary | Summary of Care ---
Author Name Unknown Organization [facility] Address [address] [place] [address] Phone [phone] Care Team Providers Care Sap Bw Architect Name Role Phone Francisco Cisse MD Primary Care Provider + Encounter Details Date Type Department Care Team (Late st Contact Info) Description 03/12/2024 [facility] [address] [place] [address] Jocelyne Sykes, RN Allergies No known active allergiesdocumented as of this encounter (statuses as of 03/12/2024) Medications Medication Sig Dispensed Refills Start Date End Date Status Tylenol 325 MG Oral Capsule (Acetaminophen) Take 650 mg by mouth every 8 hours as needed for Pain (fever). 0 Active OneTouch Verio In Vitro Strip (Glucose Blood)Indications:Ty pe 2 diabetes mellitus with hemoglobin A1c goal of less than 7.0% ([facility]) Use to test blood sugars 3 times [...] each unit 50 mL 0 02/27/2024 Active Hospital, Clinic, or Other Facility Administered [...] as of this encounter (statuses as of 03/12/2024) Active Problems Problem Noted Date Diagnosed Date [...] as of this encounter (statuses as of 03/12/2024) Resolved Problems Problem Noted Date Diagnosed Date [...] as of this encounter (statuses as of 03/12/2024) Immunizations Name Administration Dates Next Due COVID-19 [...] Progress Notes * Jocelyne Sykes RN - 03/12/2024 7:36 AM EDT 4th HCC extension request submitted, . Candidate met the requirements for a standard exception and is eligible to receive a policy assigned score without National Liver review Boardreview, extension granted. The next extension will be due on 07/02/24. MRI of the liver completed on 02/24/24 documented in this encounter Plan of Treatment Upcoming Encounters Date Type Department Care Team (Late st Contact Info) Description 03/13/2024 2:00 PM EDT Office Visit Dermatology [facility] 200 [facility] [place], [place] [address] Francisco Watson MD 200 [facility] [place], [place] [address] 03/17/2024 7:05 AM EDT Laboratory Lab Mobile Phlebotomy [facility] [address] [facility] [place] [address] Mvmg, Gml Mobile Home Draw [address] [facility] [place], [place] [address] 03/18/2024 11:00 AM EDT Office Visit Urology, [facility] [address] [facility] [place] [address] Frank Peraza MD [address] [place] [address] [place] [address] 03/24/2024 2:30 PM EDT Office Visit Hematology/Oncology [facility] 200 [facility] [place], [place] [address] Ayaka Tatum CRNP 400 [facility] [place] [id number] 03/30/2024 12:00 PM EDT Office Visit Family Practice [facility] [address] [facility] [place] [address] Kristen Vences, 132 [facility] [place] [address] 03/31/2024 7:05 AM EDT Laboratory Lab Mobile Phlebotomy [facility] [address] [facility] [place] [address] Mvmg, Gml [facility] Home Draw [address] [facility] [place] [address] 04/07/2024 10:00 AM EDT Office Visit Gastroenterology, [facility] [address] [place] [address] Lamar Tatum CRNP [address] [place] [address] 04/14/2024 7:05 AM EDT Laboratory Lab Mobile Phlebotomy [facility] [address] [facility], [place] [address] Mvmg, Gml Mobile Home Draw [address] [place] [employer], [place] [address] 04/28/2024 7:05 AM EDT Laboratory Lab Mobile Phlebotomy [facility] [address] [place] [facility] [address] Mvmg, Gml Mobile Home Draw 2520 [facility] [place] [address] 05/12/2024 7:05 AM EDT Laboratory Lab Mobile Phlebotomy [facility] [address] [place] [facility] [address] Mvmg, Gml Mobile Home Draw [address] [place] [address] 05/26/2024 7:05 AM EDT Laboratory Lab Mobile Phlebotomy [facility] [address] [facility], [place] [address] Mvmg, Gml Mobile Home Draw 2520 [facility] [place] [address] 06/09/2024 7:05 AM EDT Laboratory Lab Mobile Phlebotomy [facility] [address] [place] [facility] [address] Mvmg, Gml Mobile Home Draw [address] [place] [address] 06/23/2024 7:05 AM EDT Laboratory Lab Mobile Phlebotomy [facility] [address] [place] [facility] [address] Mvmg, Gml Mobile Home Draw [address] [place] [address] 07/07/2024 7:05 AM EDT Laboratory Lab Mobile Phlebotomy [facility] [address] [place] [facility] [address] Mvmg, Gml Mobile Home Draw 2520 [facility] [place] [address] 07/21/2024 7:05 AM EDT Laboratory Lab Mobile Phlebotomy [facility] 2520 [facility] [place] [address] Mvmg, Gml Mobile Home Draw [address] [facility] [place] [address] 08/04/2024 7:05 AM EDT Laboratory Lab Mobile Phlebotomy [facility] [address] [facility] [place] [address] Mvmg, Gml Mobile Home Draw 2520 [facility] [place] [address] 08/18/2024 7:05 AM EDT Laboratory Lab Mobile Phlebotomy [facility] [address] [facility] [place] [address] Mvmg, Gml Mobile Home Draw 2520 [facility] [place] [address] 08/20/2024 10:15 AM EDT Office Visit Ophthalmology, [facility] [address] [facility] [place] [address] Cody Gonzalez, [address] [place] [address] [place] [address] 09/01/2024 7:05 AM EDT Laboratory Lab Mobile Phlebotomy [facility] [address] [facility] [place] [address] Mvmg, Gml Mobile Home Draw 2520 [facility] [place] [address] 09/15/2024 7:05 AM EDT Laboratory Lab Mobile Phlebotomy [facility] 25[address] [facility], [place] [address] Mvmg, Gml Mobile Home Draw 2520 [facility] [place] [address] 10/12/2024 10:20 AM EST Office Visit Pulmonary Medicine, [facility] [address] [facility] [place] [address] Jordan Stanley MD [address] [place] [address] [address] Scheduled Procedures Name Priority Associated Diagnoses Date/Ti [...] Additional history exists CKD PHOS USE SMARTSET 12483 02/25/202501/31, 01/28/2023, 07/26/2022, Additional history exists CKD HGB USE SMARTSET 82761 03/03/202503/03, 03/03/2024, 02/26/2024, Additional history exists Lipid [...] this encounter Medical Devices Implanted Type Area Pressed Or Blown Glass Worker Device Identifier Shelf Expiration Date Model / Serial / Lot Clareon Iol Aspheric Hydrophobic Acrylic Iol Implanted:Qty: 1 on 04/23/2023 by Cody Gonzalez DO at OR [facility] Lens Left: Eye 11/12/2025 CNA0T0 / [id number] / Viatorr Tips Endoprosthesis 8-10 Mm X 8cm / 2cm Implanted:Qty: 1 on 10/07/2020 by Go Alvarado MD at [facility] Right: Abdomen 03/03/2023 [id number] / / [id number] Description:Viatorr TIPS End oprosthesis 8-10 mm x 8cm / 2cm, Manufactored by [employer] Syr Pf 2ml Embospheres 100-300 - [id number] Implanted:Qty: 1 on 04/18/2021 by Kevin Lim DO at OR [facility] Left: Abdomen [employer] [id number] 11/25/2023 S220GH / / [id number] -[id number] Lipiodol Injection - [id number] Implanted:Qty: 1 on 03/28/2022 at [facility] [employer] 03/01/2023 85880-61 01-2 / / [id number] Syr Pf 2ml [facility] 100-300 - [id number] Implanted:Qty: 1 on 03/28/2022 at [facility] [employer] [id number] 08/31/2024 S220GH / / [id number] -5 Clareon Iol Aspheric Hydrophobic Acrylic Iol Implanted:Qty: 1 on 04/02/2023 by Cody Gonzalez DO at OR [facility] Right: Eye JAZMIN 11/12/2025 CNA0T0 / [id number] / documented as of this encounter Advance Directives Documents on File Type Date Recorded Patient Drug Department Worker Expl anation Advance Directives and Living Will 12/11/2022 ADVANCE DIRECTIVE / LIVING WILL LIVING WILL Power of Senior Firmware Engineer 12/11/2022 POWER OF A TTORNEY Latest [...] patient have Health Care Power of Senior Firmware Engineer? No Care Teams Sap Bw Architect Relationship Specialty Start Date End Date Francisco Cisse MD [address] [place] [address] PCP - General Internal Medicine 09/04/21 documented as of this encounter
--- OUTSIDE RECORDS SUMMARY | 2024-03-20 16:13 | External Medical Summary | Summary of Care ---
Author Name Unknown Organization [facility] Address [address] [place] [facility] [facility] [place] [address] Phone [phone] Care Team Providers Care Diamond Cleaver Name Role Phone Francisco Cisse MD Primary Care Provider + Reason for Referral * Evaluate & Treat - Unlimited Visits (Within 30 days (routine)) - Authorized Specialty Diagnoses / Procedures Referred By Chacho fleming Referred To Contact Physical Therapy / Physical Medicine And Rehab Diagnoses Other closed fracture of twelfth thoracic vertebra, sequela Closed compression fracture of L2 lumbar vertebra, initial encounter ([facility]) Francisco Cisse MD 200 [facility] [place] [address] Referral ID Status Reason Start Date Expiration Date Visits Requested Visits Authorized [id number] Authorized Specialty Services Required 03/05/2024 999 999 Question Answer Referral Priority Within 30 days (routine) Where should this appointment be scheduled? External - [facility] Comments To help with strengthening and proper ambulation with a L2 compression deformity Reason for Visit * Reason Onset Date Comments Test Results 03/03/2024 X-ray Home Health 03/03/2024 Encounter Details Date Type Department Care Team (Late st Contact Info) Description 03/03/2024 Telephone General Internal Medicine [facility] [address] [place] [place] [address] Francisco Cisse MD 200 [facility] [place] [address] Test Results (X-ray ); Home Health Allergies No known active allergiesdocumented as of this encounter (statuses as of 03/06/2024) Medications Medication Sig Dispensed Refills Start Date [...] as of this encounter (statuses as of 03/06/2024) Active Problems Problem Noted Date Diagnosed Date [...] as of this encounter (statuses as of 03/06/2024) Resolved Problems Problem Noted Date Diagnosed Date [...] as of this encounter (statuses as of 03/06/2024) Immunizations Name Administration Dates Next Due COVID-19 mRNA, LNP-s, No Pre serve, 2-Dose Series (Pfizer) 03/08/2021,02/15/2021 HepA Inact/HepB Recomb>=18yrs old 12/04/2019,04/2019,05/20/2019 11/19/2019 PPD 06/18/2017, 3,01/09/2012,06/2011 Pneumococcal Conjugate Vacc, 13 Valent (Prevnar) 05/01/2017 Pneumococcal Polysaccharide PPV23 (Pneumovax) 08/28/2022,10/25/2015,07/14/2012 Season Influenza, Quad, PF, Adjuvanted, 65+ Yrs, IM (FLUAD) 10/07/2020(Deferred: Patient Refused - pt says he already had his shot last month at [facility] Handy Lyons and Mckinley Cobian made [...] Addendum Note - Francisco Cisse MD - 03/05/2024 12:02 PM EDTAddended by: FRANCISCO CISSE on: 03/05/2024 12:02 PM Modules accepted: Orders * Telephone Encounter - Francisco Cisse MD - 03/05/2024 11:46 AM EDT Ok, would schedule follow up if pain persistent or worsening. Also, patient was to see cardiology last fall. Visit was cancelled. Can we get this rescheduled given chronic chest pain or does he want to wait until bleeding better? Let me know. * Addendum Note - Dinah Mccormick LPN - 03/04/2024 9:50 AM EDTAddended by: DINAH MCCORMICK on: 03/04/2024 09:50 AM Modules accepted: Orders * Telephone Encounter - Dinah Mccormick LPN - 03/04/2024 9:38 AM EDT Cristina from [employer] was asked by patient to call office Patient would like to know if he can get an order for PT with [employer] To help with strengthening and proper ambulation with a L2 compression deformity Please advise Please fax to [phone] * Telephone Encounter - Korin Allison LPN - 03/03/2024 11:06 AM EDT Patient is aware of information. Has appt scheduled with Dr. Vences at . * Telephone Encounter - Korin Allison LPN - 03/03/2024 11:01 AM EDT ----- Message from Gege Herbert MD sent at 03/02/2024 3:56 PM EDT ----- Lumbar spine x-ray - Mild compression deformity of L2, new since the radiographs of the thoracolumbar spine dated 09/26/2021 - this could be form this fall or happened in last few years - hard top differentiate- follow as directed by PCP documented in this encounter Plan of Treatment Upcoming Encounters Date Type Department Care Team (Late st Contact Info) Description 03/13/2024 2:00 PM EDT Office Visit Dermatology [facility] 200 [facility] [place] [address] Francisco Watson MD 200 [facility] [place] [address] 03/17/2024 7:05 AM EDT Laboratory Lab Mobile Phlebotomy [facility] [address]60 [facility] [place] [address] Mvmg, Gml Mobile Home Draw 2520 [employer] [place] [address] 03/18/2024 11:00 AM EDT Office Visit Urology, [facility] 132 [facility] [place] [address] Frank Peraza MD 27 [facility] [place] [address] [place] [address] 03/24/2024 2:30 PM EDT Office Visit Hematology/Oncology [facility] [place] 200 [facility] [place] [id number] Ayaka Tatum CRNP 400 [facility] [place] [address] 03/30/2024 12:00 PM EDT Office Visit Family Practice [facility] 132 [facility] [place] [address] Kristen Vences DO [facility] [address] 03/31/2024 7:05 AM EDT Laboratory Lab Mobile Phlebotomy [facility] 2520 [facility] [place] [address] Mvmg, Gml Mobile Home Draw 2520 [facility] [place], [place] [address] 04/07/2024 10:00 AM EDT Office Visit Gastroenterology, [facility] 132 [facility] [place] [address] Lamar Tatum CRNP 132 [facility] [place] [address] 04/14/2024 7:05 AM EDT Laboratory Lab Mobile Phlebotomy [facility] [address]20 [employer] [facility] [place] [address] Mvmg, Gml Mobile Home Draw 2520 [facility] [place], [place] [address] 04/28/2024 7:05 AM EDT Laboratory Lab Mobile Phlebotomy M[facility] [address] [employer] [facility] [place] [address] Mvmg, Gml Mobile Home Draw 25[address] [employer] [facility] [place], [place] [address] 05/12/2024 7:05 AM EDT Laboratory Lab Mobile Phlebotomy [facility] [address] [place] [address] Mvmg, Gml Mobile Home Draw 2520 [facility] [place] [address] 05/26/2024 7:05 AM EDT Laboratory Lab Mobile Phlebotomy [facility] [address] [facility] [place] [address] Mvmg, Gml Mobile Home Draw 25[address] [facility] [place] [address] 06/09/2024 7:05 AM EDT Laboratory Lab Mobile Phlebotomy [facility] 25[address] [facility] [place] [address] Mvmg, Gml Mobile Home Draw 2520 [place] [address] 06/23/2024 7:05 AM EDT Laboratory Lab Mobile Phlebotomy M[facility] 25[address] [facility] [place] [address] Mvmg, Gml Mobile Home Draw [address] [place] [address] 07/07/2024 7:05 AM EDT Laboratory Lab Mobile Phlebotomy M[facility] 2520 [facility] [place] [address] Mvmg, Gml Mobile Home Draw 2520 [place] [address] 07/21/2024 7:05 AM EDT Laboratory Lab Mobile Phlebotomy M[facility] [address] [place] [address] Mvmg, Gml Mobile Home Draw 2520 [place] [address] 08/04/2024 7:05 AM EDT Laboratory Lab Mobile Phlebotomy M[facility] 25[address] [facility] [place] [address] Mvmg, Gml Mobile Home Draw 2520 [facility] [place] [address] 08/18/2024 7:05 AM EDT Laboratory Lab Mobile Phlebotomy M[facility] [address] [facility] [place] [address] Mvmg, Gml Mobile Home Draw [address] [employer] [place], [place] [address] 08/20/2024 10:15 AM EDT Office Visit Ophthalmology, [facility] 132 [facility] [place] [address] Cody Gonzalez DO [facility] [place] [address] 09/01/2024 7:05 AM EDT Laboratory Lab Mobile Phlebotomy M[facility] [address] [facility] [place] [address] Mvmg, Gml Mobile Home Draw [address] [facility] [facility] [place] [address] 09/15/2024 7:05 AM EDT Laboratory Lab Mobile Phlebotomy M[facility] [address] [facility] [place] [address] Mvmg, Gml Mobile Home Draw [address] [facility] [place] [address] 10/12/2024 10:20 AM EST Office Visit Pulmonary Medicine, [facility] 132 [facility] [place] [address] Jordan Stanley MD [address] [place] [address] [address] Scheduled Procedures Name Priority Associated Diagnoses Date/Ti me COLONOSCOPY FLEXIBLE PROXIMAL DIAGNOSTIC Recall History of colonic polyps Portal hypertensive gastropathy (HCC) ESOPHAGOGASTRODUODENOSCOPY ( EGD), FLEXIBLE, TRANSORAL, DIAGNOSTIC Recall History of colonic polyps Portal hypertensive gastropathy (HCC) Scheduled Referrals Name Type Priority Associated Diagnoses Orde r Schedule PHYSICAL THERAPY REFERRAL OP Referral Within 30 days (routine) Other closed fracture of twelfth thoracic vertebra, sequela Closed compression fracture of L2 lumbar vertebra, initial encounter (HCC) Ordered: 03/05/2024 Health Maintenance Due Date Last Done Comments [...] Additional history exists CKD PHOS USE SMARTSET 79619 02/25/202501/31, 01/28/2023, 07/26/2022, Additional history exists CKD HGB USE SMARTSET 39667 03/03/202503/03, 03/03/2024, 02/26/2024, Additional history exists Lipid [...] this encounter Medical Devices Implanted Type Area Civil Engineering Assistant Device Identifier Shelf Expiration Date Model / Serial / Lot Clareon Iol Aspheric Hydrophobic Acrylic Iol Implanted:Qty: 1 on 04/23/2023 by Cody Gonzalez DO at OR [facility] Lens Left: Eye 11/12/2025 CNA0T0 / [id number] / Viatorr Tips Endoprosthesis 8-10 Mm X 8cm / 2cm Implanted:Qty: 1 on 10/07/2020 by Go Alvarado MD at [facility] Right: Abdomen 03/03/2023 [id number] / / [id number] Description:Viatorr TIPS End oprosthesis 8-10 mm x 8cm / 2cm, Manufactored by [employer] Syr Pf 2ml Embospheres 100-300 - [id number] Implanted:Qty: 1 on 04/18/2021 by Kevin Lim DO at OR [facility] Left: Abdomen [employer] [id number] 11/25/2023 S220GH / / [id number] Lipiodol Injection - [id number] Implanted:Qty: 1 on 03/28/2022 at [facility] [employer] 03/01/2023 [address]-22 01-2 / / [id number] Syr Pf 2ml Embospheres 100-300 - [id number] Implanted:Qty: 1 on 03/28/2022 at [facility] [employer] [id number] 08/31/2024 S220GH / / [id number] -5 Clareon Iol Aspheric Hydrophobic Acrylic Iol Implanted:Qty: 1 on 04/02/2023 by Cody Gonzalez DO at OR [facility] Right: Eye JAZMIN 11/12/2025 CNA0T0 / [id number] / documented as of this encounter Visit Diagnoses Diagnosis Other closed fracture of twelfth thoracic vertebra, sequela- Primary Closed compression fracture of L2 lumbar vertebra, initial encounter (HCC) documented in this encounter Advance Directives Documents on File Type Date Recorded Patient Cook Helper Expl anation Advance Directives and Living Will 12/11/2022 ADVANCE DIRECTIVE / LIVING WILL LIVING WILL Power of Floor Director 12/11/2022 POWER OF A TTORNEY Latest [...] the patient have Health Care Power of Floor Director? No Care Teams Diamond Cleaver Relationship Specialty Start Date End Date Francisco Cisse MD 200 [facility] [place] [address] PCP - General Internal Medicine 09/04/21 documented as of this encounter
--- OUTSIDE RECORDS SUMMARY | 2024-03-20 16:13 | External Medical Summary | Summary of Care ---
Author Name Unknown Organization [facility] Address [address] [facility] [place] [address] Phone [phone] Care Team Providers Care It Investment/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 Name Role Phone Francisco Cisse MD Primary Care Provider + Reason for Visit * Reason Comments Follow Up Patient here for a p soriasis follow-up he usually treats with home light therapy but has had other health issues and been hospitalized a lot. Has not used light treatments much. Encounter Details Date Type Department Care Team (Late st Contact Info) Description 03/13/2024 2:00 PM EDT Office Visit Dermatology [facility] [address] [facility] [place] [address] Francisco Watson MD [address] [facility] [place] [address] Psoriasis*; Xerosis cutis Allergies No known active allergiesdocumented as of this encounter (statuses as of 03/13/2024) Medications Medication Sig Dispensed Refills Start Date [...] 09/25/2022 Active Mirtazapine 30 MG Oral Tablet (Remeron)Indication [...] on 02/26/2024 Albumin Human 25 % Intravenous SolutionIndications :Cirrhosis [...] 2-3 weeks 453.6 g 0 03/13/2024 Active Triamcinolone Acetonide 0.1 % External Cream (Aristocort) Apply to psoriatic lesions twice a day as needed for 2-3 weeks 453.6 g 0 11/21/2022 03/13/20 24 Discontinu ed(Refill) Hospital, Clinic, or Other [...] as of this encounter (statuses as of 03/13/2024) Active Problems Problem Noted Date Diagnosed Date [...] as of this encounter (statuses as of 03/13/2024) Resolved Problems Problem Noted Date Diagnosed Date [...] as of this encounter (statuses as of 03/13/2024) Immunizations Name Administration Dates Next Due COVID-19 mRNA, LNP-s, No Pre serve, 2-Dose Series (Bix) 03/08/2021,02/15/2021 HepA Inact/HepB Recomb>=18yrs old 12/04/2019,04/2019,05/20/2019 11/19/2019 PPD 06/18/2017, 3,01/09/2012,06/2011 Pneumococcal Conjugate Vacc, 13 Valent (Prevnar) 05/01/2017 Pneumococcal Polysaccharide PPV23 (Pneumovax) 08/28/2022,10/25/2015,07/14/2012 Season Influenza, Quad, PF, Adjuvanted, 65+ Yrs, IM (FLUAD) 10/07/2020(Deferred: Patient Refused - pt says he already had his shot last month at [facility] Handy Lyons and Mckinley Cobian made [...] of this encounter Progress Notes * Francisco Watson MD - 03/13/2024 2:03 PM EDT SUBJECTIVE: Chief Complaint: Chief Complaint Patient presents with Follow Up Patient here for a psoriasis follow-up he usually treats with home light therapy but has had other health issues and been hospitalized a lot. Has not used light treatments much. HPI: Luis Hale is a 73 year old male seen for psoriasis. Tells me he has had psoriasis for many years, since 3 y/o. Gets it all over. Today mostly just on arms and legs Was previously on Humira and Enbrel. But concerned that it may have given him FOFANA. Also diagnosed with prostate CA and hepatic CA. Stopped it and now on light therapy. Lights work well for him but due to several comorbidities he's had trouble using it recently. Currently only using about once a month Using triamcinolone cream to lesions currently. Prior Dr. Gallardo patient OBJECTIVE: GEN: Elderly but alert, no distress, appears oriented, pleasant, and cooperative SKIN: Problem focused exam reveals: Diffuse scaly pink plaques and background xerosis ASSESSMENT/PLAN: Psoriasis vulgaris BSA: 10-25%, Special Site: Flexures; moderate; Status: improved. - Improved since last visit - Recommended short lukewarm showers, gentle soaps, frequent moisturizers - Increase home nbUVB to 2-3x week - continue triamcinolone, refill sent of 450g jar Francisco Watson MD Ref: SELF[[id number]] NO STREET ADDRESS AVAILABLE None (office) None (fax) PCP: FRANCISCO CISSE [address] [facility] [place], [place] [address] [phone] documented in this encounter Plan of Treatment Upcoming Encounters Date Type Department Care Team (Late st Contact Info) Description 03/17/2024 7:05 AM EDT Laboratory Lab Mobile Phlebotomy [facility] [address] [place] [address] M[facility], [facility] Draw [address] [facility] [place] [address] 03/18/2024 11:00 AM EDT Office Visit Urology, [facility] [address] [facility] [place] [address] Frank Peraza MD [address] [place] [address] [place] [address] 03/24/2024 2:30 PM EDT Office Visit Hematology/Oncology [facility] [address] [facility] [place] [address] Ayaka Tatum CRNP [address] [place] [address] 03/30/2024 12:00 PM EDT Office Visit Family Practice [facility] [address] [facility] [place] [address] Kristen Vences DO 132 [facility] [place] [address] 03/31/2024 7:05 AM EDT Laboratory Lab Mobile Phlebotomy [facility] [address] [place] [address] Mvmg, Gml [facility] Draw [address] [facility] [place] [address] 04/07/2024 10:00 AM EDT Office Visit Gastroenterology, [facility] [address] [place] [address] Lamar Tatum CRNP [address] [place] [address] 04/14/2024 7:05 AM EDT Laboratory Lab Mobile Phlebotomy [facility] [address] [place] [address] Mvmg, Gml Mobile Home Draw [address] [address] [place] [address] 04/28/2024 7:05 AM EDT Laboratory Lab Mobile Phlebotomy [facility] [address] [place] [address] Mvmg, Gml Mobile Home Draw [address] [address] [place] [address] 05/12/2024 7:05 AM EDT Laboratory Lab Mobile Phlebotomy [facility] [address] [place] [address] Mvmg, Gml Mobile Home Draw [address] [place] [address] 05/26/2024 7:05 AM EDT Laboratory Lab Mobile Phlebotomy [facility] [address] [place] [address] Mvmg, Gml Mobile Home Draw [address] [place] [address] 06/09/2024 7:05 AM EDT Laboratory Lab Mobile Phlebotomy [facility] [address] [place] [address] Mvmg, Gml Mobile Home Draw [address] [place] [address] 06/23/2024 7:05 AM EDT Laboratory Lab Mobile Phlebotomy [facility] [address] [place] [address] Mvmg, Gml Mobile Home Draw [address] [place] [address] 07/07/2024 7:05 AM EDT Laboratory Lab Mobile Phlebotomy [facility] [address] [place] [address] Mvmg, Gml Mobile Home Draw [address] [facility] [place] [address] 07/21/2024 7:05 AM EDT Laboratory Lab Mobile Phlebotomy [facility] [address] [facility] [place] [address] Mvmg, Gml Mobile Home Draw [address] [facility] [place] [address] 08/04/2024 7:05 AM EDT Laboratory Lab Mobile Phlebotomy [facility] [address] [facility] [place] [address] Mvmg, Gml Mobile Home Draw [address] [facility] [place] [address] 08/18/2024 7:05 AM EDT Laboratory Lab Mobile Phlebotomy [facility] [address] [facility] [place] [address] Mvmg, Gml Mobile Home Draw [address] [facility] [place] [address] 08/20/2024 10:15 AM EDT Office Visit Ophthalmology, [facility] 132 [facility] [place] [address] Cody Gonzalez, DO [address] [place], [place] [address] [address] 09/01/2024 7:05 AM EDT Laboratory Lab Mobile Phlebotomy [facility] [address] [facility] [place], [place] [address] Mvmg, Gml Mobile Home Draw [address] [facility] [place] [address] 09/15/2024 7:05 AM EDT Laboratory Lab Mobile Phlebotomy [facility] [address] [facility] [place] [address] Mvmg, Gml Mobile Home Draw [address] [facility] [place] [address] 10/12/2024 10:20 AM EST Office Visit Pulmonary Medicine, [facility] [address] [place] [address] Jordan Stanley MD [address] [place] [address] [id number] Scheduled Procedures Name Priority Associated Diagnoses Date/Ti [...] Additional history exists CKD PHOS USE SMARTSET 15073 02/25/202501/31, 01/28/2023, 07/26/2022, Additional history exists CKD HGB USE SMARTSET 54599 03/03/202503/03, 03/03/2024, 02/26/2024, Additional history exists Lipid [...] this encounter Medical Devices Implanted Type Area Magazine Supervisor Device Identifier Shelf Expiration Date Model / Serial / Lot Clareon Iol Aspheric Hydrophobic Acrylic Iol Implanted:Qty: 1 on 04/23/2023 by Cody Gonzalez DO at OR [facility] Lens Left: Eye 11/12/2025 CNA0T0 / [id number] / Viatorr Tips Endoprosthesis 8-10 Mm X 8cm / 2cm Implanted:Qty: 1 on 10/07/2020 by Go Alvarado MD at [facility] Right: Abdomen 03/03/2023 [id number] / / [id number] Description:Viatorr TIPS End oprosthesis 8-10 mm x 8cm / 2cm, Manufactored by [employer] Syr Pf 2ml Embospheres 100-300 - [id number] Implanted:Qty: 1 on 04/18/2021 by Kevin Lim DO at OR [facility] Left: Abdomen [employer] [id number] 11/25/2023 S220GH / / [id number] Lipiodol Injection - [id number] Implanted:Qty: 1 on 03/28/2022 at [facility] [employer] 03/01/2023 [id number] -2 / [id number] Syr Pf 2ml [facility] 100-300 - [id number] Implanted:Qty: 1 on 03/28/2022 at [facility] [employer] [id number] 08/31/2024 S220GH / / [id number] -[id number] Clareon Iol Aspheric Hydrophobic Acrylic Iol Implanted:Qty: 1 on 04/02/2023 by Cody Gonzalez DO at [facility] Right: Eye JAZMIN 11/12/2025 CNA0T0 / [id number] / documented as of this encounter Visit Diagnoses Diagnosis Psoriasis- Primary Other psoriasis Xerosis cutis Other specified disease of sebaceous glands documented in this encounter Advance Directives Documents on File Type Date Recorded 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 No Care Teams It Investment/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 Relationship Specialty Start Date End Date Francisco Cisse MD 200 [place] [address] PCP - General Internal Medicine 09/04/21 documented as of this encounter
--- OUTSIDE RECORDS SUMMARY | 2024-03-20 16:13 | External Medical Summary | Summary of Care ---
Author Name Unknown Organization [facility] Address [address] [place] [place] [address] Phone [phone] Care Team Providers Care Cargo Handler Name Role Phone Francisco Cisse MD Primary Care Provider + Reason for Referral * Evaluate & Treat - Unlimited Visits (Within 30 days (routine)) - Authorized Specialty Diagnoses / Procedures Referred By Chacho fleming Referred To Contact Physical Therapy / Physical Medicine And Rehab Diagnoses Other closed fracture of twelfth thoracic vertebra, sequela Closed compression fracture of L2 lumbar vertebra, initial encounter ([facility]) Francisco Cisse MD [address] [facility] [place] [address] Referral ID Status Reason Start Date Expiration Date Visits Requested Visits Authorized [id number] Authorized Specialty Services Required 03/05/2024 999 999 [...] State Rey Avilez [address] [place] [address] Francisco Cisse MD [address] [facility] [place] [address] Test Results (X-ray ); Home Health Allergies No known active allergiesdocumented as of this encounter (statuses as of 03/09/2024) Medications Medication Sig Dispensed Refills Start Date [...] as of this encounter (statuses as of 03/09/2024) Active Problems Problem Noted Date Diagnosed Date [...] as of this encounter (statuses as of 03/09/2024) Resolved Problems Problem Noted Date Diagnosed Date [...] as of this encounter (statuses as of 03/09/2024) Immunizations Name Administration Dates Next Due COVID-19 [...] month at [facility] Handy Lyons and Mckinley Cobian [...] - 03/04/2024 9:38 AM EDT Cristina from [facility] was asked by patient to call office Patient would like to know if he can get an order for PT with [facility] To help with strengthening and proper ambulation with a L2 compression deformity Please advise Please fax to [phone] * Telephone Encounter - Korin Allison LPN [...] Office Visit Dermatology [facility] [address] [facility] [place] [address] Francisco Watson MD [address] [facility] [place] [address] 03/17/2024 7:05 AM EDT Laboratory Lab Mobile Phlebotomy [facility] [address] [facility] [place] [address] Mvmg, Gml Mobile Home Draw [address] [employer] [place] [address] 03/18/2024 11:00 AM EDT Office Visit Urology, [facility] [address] [facility] [place] [address] Frank Peraza MD 27 [facility] [address] [place] [address] 03/24/2024 2:30 PM EDT Office Visit Hematology/Oncology [facility] [place] 200 [facility] [place] [phone] Ayaka Tatum [facility] [place] [address] 03/30/2024 12:00 PM EDT Office Visit Family Practice [facility] 132 [facility] [place] [address] Kristen Vences DO [facility] [place] [address] 03/31/2024 7:05 AM EDT Laboratory Lab Mobile Phlebotomy [facility] [address] [facility] [place] [address] Mvmg, Gml Mobile Home Draw [address] [facility] [place], [place] [address] 04/07/2024 10:00 AM EDT Office Visit Gastroenterology, [facility] 132 [facility] [place] [address] Lamar Tatum CRNP [facility] [place] [address] 04/14/2024 7:05 AM EDT Laboratory Lab Mobile Phlebotomy [facility] [address] [facility] [place] [address] Mvmg, Gml Mobile Home Draw [address] [facility] [place], [place] [address] 04/28/2024 7:05 AM EDT Laboratory Lab Mobile Phlebotomy [facility] [address] [facility] [place] [address] Mvmg, Gml Mobile Home Draw [address] [facility] [place], [place] [address] 05/12/2024 7:05 AM EDT Laboratory Lab Mobile Phlebotomy [facility] [address] [facility] [place] [place] [address] Mvmg, Gml Mobile Home Draw [address] [place] [address] 05/26/2024 7:05 AM EDT Laboratory Lab Mobile Phlebotomy [facility] [address] [place] [address] Mvmg, Gml Mobile Home Draw [address] [place] [address] 06/09/2024 7:05 AM EDT Laboratory Lab Mobile Phlebotomy [facility] [address] [place] [address] Mvmg, Gml Mobile Home Draw [address] [place] [address] 06/23/2024 7:05 AM EDT Laboratory Lab Mobile Phlebotomy [facility] [address] [place] [address] Mvmg, Gml Mobile Home Draw [address] [facility] [place] [address] 07/07/2024 7:05 AM EDT Laboratory Lab Mobile Phlebotomy [facility] [address] [place] [address] Mvmg, Gml Mobile Home Draw [address] [place] [address] 07/21/2024 7:05 AM EDT Laboratory Lab Mobile Phlebotomy [facility] [address] [place] [address] Mvmg, Gml Mobile Home Draw [address] [place] [address] 08/04/2024 7:05 AM EDT Laboratory Lab Mobile Phlebotomy [facility] [address] [place] [address] Mvmg, Gml Mobile Home Draw [address] [place] [address] 08/18/2024 7:05 AM EDT Laboratory Lab Mobile Phlebotomy [facility] [address] [place] [address] Mvmg, Gml Mobile Home Draw [address] [employer] [place], [place] [address] 08/20/2024 10:15 AM EDT Office Visit Ophthalmology, [facility] 132 [facility] [place] [address] Cody Gonzalez DO [address] [place] [address] 09/01/2024 7:05 AM EDT Laboratory Lab Mobile Phlebotomy [facility] [address] [place] [address] Mvmg, Gml Mobile Home Draw [address] [employer] [place] [address] 09/15/2024 7:05 AM EDT Laboratory Lab Mobile Phlebotomy [facility] [address] [place] [address] Mvmg, Gml Mobile Home Draw [address] [employer] [place] [address] 10/12/2024 10:20 AM EST Office Visit Pulmonary Medicine, [facility] 132 [facility] [place] [address] Jordan Stanley MD [address] [place] [address] [address] Scheduled Procedures Name Priority Associated Diagnoses Date/Ti [...] Additional history exists CKD PHOS USE SMARTSET 37825 02/25/202501/31, 01/28/2023, 07/26/2022, Additional history exists CKD HGB USE SMARTSET 70583 03/03/202503/03, 03/03/2024, 02/26/2024, Additional history exists Lipid [...] this encounter Medical Devices Implanted Type Area Ambulette Driver Device Identifier Shelf Expiration Date Model / Serial / Lot Clareon Iol Aspheric Hydrophobic Acrylic Iol Implanted:Qty: 1 on 04/23/2023 by Cody Gonzalez DO at OR [facility] Lens Left: Eye 11/12/2025 CNA0T0 / [id number] / Viatorr Tips Endoprosthesis 8-10 Mm X 8cm / 2cm Implanted:Qty: 1 on 10/07/2020 by Go Alvarado MD at [facility] Right: Abdomen 03/03/2023 [id number] / / [id number] Description:Viatorr TIPS End oprosthesis 8-10 mm x 8cm / 2cm, Manufactored by [employer] Syr Pf 2ml Embospheres 100-300 - [id number] Implanted:Qty: 1 on 04/18/2021 by Kevin Lim DO at OR [facility] Left: Abdomen [employer] [id number] 11/25/2023 S220GH / / [id number] Lipiodol Injection - [id number] Implanted:Qty: 1 on 03/28/2022 at [facility] [employer] 03/01/2023 [id number] 01-2 / / [id number] Syr Pf 2ml Embospheres 100-300 - [id number] Implanted:Qty: 1 on 03/28/2022 at [facility] [employer] [id number] 08/31/2024 S220GH / / [id number] -5 Clareon Iol Aspheric Hydrophobic Acrylic Iol Implanted:Qty: 1 on 04/02/2023 by Cody Gonzalez DO at OR [facility] Right: Eye JAZMIN 11/12/2025 CNA0T0 / [id number] / documented as of this encounter Visit Diagnoses Diagnosis Other closed fracture of twelfth thoracic vertebra, sequela- Primary Closed compression fracture of L2 lumbar vertebra, initial encounter (HCC) documented in this encounter Advance Directives Documents on File Type Date Recorded Patient Home Health Attendant Expl anation Advance Directives and Living Will 12/11/2022 ADVANCE DIRECTIVE / LIVING WILL LIVING WILL Power of Audit Specialist 12/11/2022 POWER OF A TTORNEY Latest [...] the patient have Health Care Power of Audit Specialist? No Care Teams Cargo Handler Relationship Specialty Start Date End Date Francisco Cisse MD [address] [facility] [place] [address] PCP - General Internal Medicine 09/04/21 documented as of this encounter
--- OUTSIDE RECORDS SUMMARY | 2024-03-20 16:13 | External Medical Summary | Summary of Care ---
Author Name Unknown Organization [facility] Address [address] [place] [address] Phone [phone] Care Team Providers Care Branch Mechanic Name Role Phone Francisco Cisse MD Primary Care Provider + Reason for Visit * Reason Onset Date Comments Pre-Transplant Evaluation 03/11/2024 Encounter Details Date Type Department Care Team (Late st Contact Info) Description [facility] [address] [place] [address] Jocelyne Sykes, RN Pre-Transplant Evaluation Allergies No known active allergiesdocumented as of this encounter (statuses as of 03/11/2024) Medications Medication Sig Dispensed Refills Start Date [...] as of this encounter (statuses as of 03/11/2024) Active Problems Problem Noted Date Diagnosed Date [...] as of this encounter (statuses as of 03/11/2024) Resolved Problems Problem Noted Date Diagnosed Date [...] as of this encounter (statuses as of 03/11/2024) Immunizations Name Administration Dates Next Due COVID-19 [...] Telephone Encounter - Jocelyne Sykes RN - 03/11/2024 10:01 AM EDT Left message for Mr. Hale's son Alex that I was calling to reschedule his IR appointment for treatment of his liver and kidney lesions as well as annual liver transplant evaluation. I offered Alex an appointment on 03/23/24 for both appointments and asked him to return my call to discuss if this was a suitable date. documented in this encounter Plan of Treatment Upcoming Encounters Date Type Department Care Team (Late st Contact Info) Description 03/13/2024 2:00 PM EDT Office Visit Dermatology [facility] 200 [facility] [place] [address] Francisco Watson MD [address] [place] [address] 03/17/2024 7:05 AM EDT Laboratory Lab Mobile Phlebotomy [facility] [address] [place] [address] Mvmg, G[facility] Draw [address] [place] [address] 03/18/2024 11:00 AM EDT Office Visit Urology, [facility] [address] [facility] [place] [address] Frank Peraza MD [address] [place] [address] [place] [address] 03/24/2024 2:30 PM EDT Office Visit Hematology/Oncology [facility] 200 [facility] [place] [phone] Ayaka Tatum CRNP 400 [facility] [place] [address] 03/30/2024 12:00 PM EDT Office Visit Family Practice [facility] [address] [place] [address] Kristen Vences DO 132 [facility] [place] [address] 03/31/2024 7:05 AM EDT Laboratory Lab Mobile Phlebotomy [facility] [address] [place] [address] Mvmg, [facility] Draw [address] [place] [address] 04/07/2024 10:00 AM EDT Office Visit Gastroenterology, [facility] [address] [place] [address] Lamar Tatum CRNP [address] [place] [address] 04/14/2024 7:05 AM EDT Laboratory Lab [facility] Phlebotomy [facility] [address] [place] [address] Mvmg, G[facility] Draw [address] [place] [address] 04/28/2024 7:05 AM EDT Laboratory Lab Mobile Phlebotomy [facility] [address] [place] [address] Mvmg, Gml [facility] Draw [address] [place] [address] 05/12/2024 7:05 AM EDT Laboratory Lab Mobile Phlebotomy [facility] [address] [place] [address] Mvmg, G[facility] Draw [address] [place] [address] 05/26/2024 7:05 AM EDT Laboratory Lab Mobile Phlebotomy [facility] [address] [place] [address] Mvmg, Gml [facility] Draw [address] [place] [address] 06/09/2024 7:05 AM EDT Laboratory Lab Mobile Phlebotomy [facility] [address] [place] [address] Mvmg, Gml [facility] Draw [address] [place] [address] 06/23/2024 7:05 AM EDT Laboratory Lab Mobile Phlebotomy [facility] [address] [place] [address] Mvmg, Gml [facility] Draw [address] [place] [address] 07/07/2024 7:05 AM EDT Laboratory Lab Mobile Phlebotomy [facility] [address] [place] [address] Mvmg, Gml [facility] Draw [address] [facility] [place] [address] 07/21/2024 7:05 AM EDT Laboratory Lab Mobile Phlebotomy [facility] [address] [facility] [place] [address] Mvmg, Gml [facility] Draw [address] [facility] [place] [address] 08/04/2024 7:05 AM EDT Laboratory Lab Mobile Phlebotomy [facility] [address] [place] [address] Mvmg, Gml [facility] Draw [address] [facility] [place] [address] 08/18/2024 7:05 AM EDT Laboratory Lab Mobile Phlebotomy [facility] [address] [facility] [place], [place] [address] Mvmg, Gml [facility] Draw [address]20 [place] [address] 08/20/2024 10:15 AM EDT Office Visit Ophthalmology, [facility] 132 [facility] [place] [address] Cody Gonzalez DO 21 [facility] [place] [address] 09/01/2024 7:05 AM EDT Laboratory Lab Mobile Phlebotomy [facility] [address] [place] [address] Mvmg, Gml [facility] Draw [address] [place] [address] 09/15/2024 7:05 AM EDT Laboratory Lab Mobile Phlebotomy [facility] [address] [facility] [place], [place] [address] Mvmg, Gml [facility] Draw [address] [facility] [place] [address] 10/12/2024 10:20 AM EST Office Visit Pulmonary Medicine, [facility] [address] [place] [address] Jordan Stanley MD [address] [place] [address] Scheduled Procedures Name Priority Associated Diagnoses Date/Ti [...] Additional history exists CKD PHOS USE SMARTSET 49601 02/25/202501/31, 01/28/2023, 07/26/2022, Additional history exists CKD HGB USE SMARTSET 54387 03/03/202503/03, 03/03/2024, 02/26/2024, Additional history exists Lipid [...] this encounter Medical Devices Implanted Type Area Electronics Research Engineer Device Identifier Shelf Expiration Date Model / Serial / Lot Clareon Iol Aspheric Hydrophobic Acrylic Iol Implanted:Qty: 1 on 04/23/2023 by Cody Gonzalez DO at [facility] Lens Left: Eye 11/12/2025 CNA0T0 / [id number] / Viatorr Tips Endoprosthesis 8-10 Mm X 8cm / 2cm Implanted:Qty: 1 on 10/07/2020 by Go Alvarado MD at [facility] Right: Abdomen 03/03/2023 [id number] / / [id number] Description:Viatorr TIPS End oprosthesis 8-10 mm x 8cm / 2cm, Manufactored by [employer] Syr Pf 2ml Embospheres 100-300 - [id number] Implanted:Qty: 1 on 04/18/2021 by Kevin Lim DO at OR [facility] Left: Abdomen [employer] [id number] 11/25/2023 S220GH / / [id number] Lipiodol Injection - [id number] Implanted:Qty: 1 on 03/28/2022 at [facility] [employer] 03/01/2023 52405-91 -2 / [id number] Syr Pf 2ml [facility] 100-300 - [id number] Implanted:Qty: 1 on 03/28/2022 at [facility] [employer] [id number] 08/31/2024 S220 / / [id number] -[id number] Clareon Iol Aspheric Hydrophobic Acrylic Iol Implanted:Qty: 1 on 04/02/2023 by Cody Gonzalez DO at [facility] Right: Eye JAZMIN 11/12/2025 CNA0T0 / [id number] / documented as of this encounter Advance Directives Documents on File Type Date Recorded 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 No Care Teams Branch Mechanic Relationship Specialty Start Date End Date Francisco Cisse MD [address] [place] [address] PCP - General Internal Medicine 09/04/21 documented as of this encounter
--- OUTSIDE RECORDS SUMMARY | 2024-03-20 16:13 | External Medical Summary | Summary of Care ---
Author Name Unknown Organization [facility] Address [address] [place] [address] Phone [phone] Care Team Providers Care Batch Mixing Truck Driver Name Role Phone Francisco Cisse MD Primary Care Provider + Reason for Referral * Evaluate & Treat - Unlimited Visits (Within 10 days (routine)) - Authorized Specialty Diagnoses / Procedures Referred By Contact Referred To Contact Interventional Radiology / Radiology Diagnoses Renal lesion Hepatocellular carcinoma (HCC) Demian Mancini MD [address] [place] [address] Referral ID Status Reason Start Date Expiration Date Visits Requested Visits Authorized [id number] Authorized Ancillary Services Required 03/05/[phone] Question Answer Referral Priority Within 10 days (routine) Where should this appointment be scheduled? [facility] Where Will The Procedure Be Performed? [facility] Comments Please enter the reason for consult: Case reviewed at tumor board on 03/04/24. MRI from 02/24/24 shows a 1.5 cm complex cystic left renal lesion. Please evaluate for possible cryoablation Are outside images available?: Yes - Images available in Epic Reason for Visit * Reason Onset Date Comments Test Results 03/05/2024 Encounter Details Date Type Department Care Team (Late st Contact Info) Description 03/05/2024 Telephone Transplant Clinic, [place] [address] [place] [address] Jocelyne Sykes, RN Test Results Allergies No known active allergiesdocumented [...] mRNA, LNP-s, No Pre serve, 2-Dose Series ([facility]) 03/08/2021,02/15/2021 HepA Inact/HepB Recomb>=18yrs old 12/04/2019,04/2019,05/20/2019 11/19/2019 [...] Telephone Encounter - Jocelyne Sykes RN - 03/05/2024 3:59 PM EDT Outgoing call to Mr. Hale to review that his case was discussed last night at the tumor board meeting. We discussed that his recent MRI of the liver showed a 4 cm lesion consistent with viable tumor.It also showed a 1.5 cm complex cystic left renal lesion for which the tumor board recommends referring to IR for cryoablation. Referral placed for treatment. Mr. Hale shares part of his ongoing troubles that he has had encountered recently. He is scheduled for a blood transfusion tomorrow for a hemoglobin in the 7's. He has also been having problems with his bladder requiring catheter placement. He then developed clots and had to have his mendoza irrigated. He is continuing to follow with Urology for management of his urinary symptoms. Urology has recommended Hyperbaric Oxygen Therapy Treatment at [facility] three hours a day, ?three days a week for several weeks. Mr. Hale also had a recent fall and fractured T11-12 and L2. He is questioning whether he may still be a candidate for transplant. We reviewed the risks for transplant and discussed that the team should re-evaluate him in person before a decision is made on his candidacy for transplant. He is agreeable to attempt to coordinate his annual transplant evaluation with his initial IR evaluation. documented in this encounter Plan of Treatment Upcoming Encounters Date Type Department Care Team (Late st Contact Info) Description 03/13/2024 2:00 PM EDT Office Visit Dermatology [facility] [place] [address] [place] [address] Francisco Watson MD 200 [facility] [place] [address] 03/17/2024 7:05 AM EDT Laboratory Lab Mobile Phlebotomy [facility] [address] [facility] [place], [place] [address] Mvmg, Gml Mobile Home Draw 25[address] [facility] [place], [place] [address] 03/18/2024 11:00 AM EDT Office Visit Urology, [facility] 132 [facility] [place] [address] Frank Peraza MD 27 [facility] [address] [place] [address] 03/24/2024 2:30 PM EDT Office Visit Hematology/Oncology [facility] 200 [facility] [place], [place] [phone] Ayaka Tatum CRNP 400 [facility] [place] [address] 03/30/2024 12:00 PM EDT Office Visit Family Practice [facility] [address] [employer] [place] [address] Kristen Vences DO 132 [facility] [address] 03/31/2024 7:05 AM EDT Laboratory Lab Mobile Phlebotomy [facility] [address] [facility] [place], [place] [address] Mvmg, Gml Mobile Home Draw [address] [facility] [place] [address] 04/07/2024 10:00 AM EDT Office Visit Gastroenterology, [facility] 132 [facility] [place] [address] Lamar Tatum CRNP 132 [facility] [place] [address] 04/14/2024 7:05 AM EDT Laboratory Lab Mobile Phlebotomy [facility] [address] [facility] [place] [address] Mvmg, Gml Mobile Home Draw [address] [facility] [place] [address] 04/28/2024 7:05 AM EDT Laboratory Lab Mobile Phlebotomy [facility] [address] [facility] [place] [address] Mvmg, Gml Mobile Home Draw [address] [facility] [place] [address] 05/12/2024 7:05 AM EDT Laboratory Lab Mobile Phlebotomy [facility] [address] [facility] [place] [address] Mvmg, Gml Mobile Home Draw [address] [facility] [place] [address] 05/26/2024 7:05 AM EDT Laboratory Lab Mobile Phlebotomy [facility] [address] [facility] [place] [address] Mvmg, Gml Mobile Home Draw [address] [facility] [place] [address] 06/09/2024 7:05 AM EDT Laboratory Lab Mobile Phlebotomy [facility] [address] [facility] [place] [address] Mvmg, Gml Mobile Home Draw [address] [facility] [place] [address] 06/23/2024 7:05 AM EDT Laboratory Lab Mobile Phlebotomy [facility] [address] [facility] [place] [address] Mvmg, Gml Mobile Home Draw [address] [facility] [place] [address] 07/07/2024 7:05 AM EDT Laboratory Lab Mobile Phlebotomy [facility] [address] [facility] [place] [address] Mvmg, Gml Mobile Home Draw [address] [facility] [place] [address] 07/21/2024 7:05 AM EDT Laboratory Lab Mobile Phlebotomy [facility] [address] [facility] [place] [address] Mvmg, Gml Mobile Home Draw [address] [facility] [place] [address] 08/04/2024 7:05 AM EDT Laboratory Lab Mobile Phlebotomy [facility] [address] [facility] [place], [place] [address] Mvmg, Gml Mobile Home Draw [address] [facility] [place] [address] 08/18/2024 7:05 AM EDT Laboratory Lab Mobile Phlebotomy [facility] [address] [facility] [place] [address] Mvmg, Gml Mobile Home Draw [address] [facility] [place] [address] 08/20/2024 10:15 AM EDT Office Visit Ophthalmology, [facility] [address] [employer] [address] Cody Gonzalez DO 21 [facility] [place] [address] 09/01/2024 7:05 AM EDT Laboratory Lab Mobile Phlebotomy [facility] [address] [facility] [place], [place] [address] Mvmg, Gml Mobile Home Draw [address] [facility] [place], [place] [address] 09/15/2024 7:05 AM EDT Laboratory Lab Mobile Phlebotomy [facility] [address] [facility] [place], [place] [address] Mvmg, Gml Mobile Home Draw [address] [facility] [place] [address] 10/12/2024 10:20 AM EST Office Visit Pulmonary Medicine, [facility] 132 [facility] [place] [address] Jordan Stanley MD [address] [place] [address] Scheduled Procedures Name Priority Associated Diagnoses Date/Ti me COLONOSCOPY FLEXIBLE PROXIMAL DIAGNOSTIC Recall History of colonic polyps Portal hypertensive gastropathy (HCC) ESOPHAGOGASTRODUODENOSCOPY ( EGD), FLEXIBLE, TRANSORAL, DIAGNOSTIC Recall History of colonic polyps Portal hypertensive gastropathy (HCC) Scheduled Referrals Name Type Priority Associated Diagnoses Order Schedule INTERVENTIONAL RADIOLOGY REFERRAL OP Referral Within 10 days (routine) Renal lesion Hepatocellular carcinoma (HCC) Ordered: 03/05/2024 Health Maintenance Due Date [...] Additional history exists CKD PHOS USE SMARTSET 78822 02/25/202501/31, 01/28/2023, 07/26/2022, Additional history exists CKD HGB USE SMARTSET 61465 03/03/202503/03, 03/03/2024, 02/26/2024, Additional history exists Lipid [...] this encounter Medical Devices Implanted Type Area X Ray Examiner Of Aircraft Device Identifier Shelf Expiration Date Model / Serial / Lot Clareon Iol Aspheric Hydrophobic Acrylic Iol Implanted:Qty: 1 on 04/23/2023 by Cody Gonzalez DO at OR [facility] Lens Left: Eye 11/12/2025 CNA0T0 / [id number] / Viatorr Tips Endoprosthesis 8-10 Mm X 8cm / 2cm Implanted:Qty: 1 on 10/07/2020 by Go Alvarado MD at [facility] Right: Abdomen 03/03/2023 [id number] / / [id number] Description:Viatorr TIPS End oprosthesis 8-10 mm x 8cm / 2cm, Manufactored by [employer] Syr Pf 2ml Embospheres 100-300 - [id number] Implanted:Qty: 1 on 04/18/2021 by Kevin Lim DO at OR [facility] Left: Abdomen [employer] [id number] 11/25/2023 S220GH / / [id number] Lipiodol Injection - [id number] Implanted:Qty: 1 on 03/28/2022 at [facility] [employer] 03/01/2023 [id number] 01-2 / / [id number] Syr Pf 2ml Embospheres 100-300 - [id number] Implanted:Qty: 1 on 03/28/2022 at [facility] [employer] [id number] 08/31/2024 S220GH / / [id number] -[id number] Clareon Iol Aspheric Hydrophobic Acrylic Iol Implanted:Qty: 1 on 04/02/2023 by Cody Gonzalez DO at [facility] Right: Eye JAZMIN 11/12/2025 CNA0T0 / [id number] / documented as of this encounter Visit Diagnoses Diagnosis Renal lesion- Primary Unspecified disorder of kidney and ureter Hepatocellular carcinoma (HCC) Malignant neoplasm of liver, primary documented in this encounter Advance Directives Documents on File Type Date Recorded Patient Lap Regulator Expl anation Advance Directives and Living Will 12/11/2022 ADVANCE DIRECTIVE / LIVING WILL LIVING WILL Power of Manpower Development Specialist Manager 12/11/2022 POWER OF A TTORNEY Latest [...] the patient have Health Care Power of Manpower Development Specialist Manager? No Care Teams Batch Mixing Truck Driver Relationship Specialty Start Date End Date Francisco Cisse MD [address] [place] [address] PCP - General Internal Medicine 09/04/21 documented as of this encounter
--- OUTSIDE RECORDS SUMMARY | 2024-03-20 16:13 | External Medical Summary | Summary of Care ---
Author Name Unknown Organization [facility] Address [address] [place] [address] Phone [phone] Care Team Providers Care Senior Animal Trainer Name Role Phone Francisco Cisse MD Primary Care Provider + Encounter Details Date Type Department Care Team (Late st Contact Info) Description 03/09/2024 [facility] [address] [place] [address] Jocelyne Sykes, RN Allergies No [...] had his shot last month at [facility]y Lyons and Mckinley Cobian [...] Progress Notes * Jocelyne Sykes, RN - 03/09/2024 12:55 PM EDT [place] [facility] [place] Luis Hale is a 73 year old male with 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 He is s/p liver guided treatment on 03/28/[address] Lim. Case was reviewed by the tumor board on 03/04/24. Tumor board consists of transplant surgeons, IR, Radiologists, Hepatologists, and Oncologists. Imaging from MRI of the liver obtained on 02/24/24 was reviewed and showed a 4x 3.8 cm LR 5 lesion with viable tumor and and a 1.5 cm complex cystic left renal lesion suspicious for cystic renal cell carcinoma. Recommendation of the tumor board is to refer Mr. Hale to IR for treatment of both his liver and renal lesion. documented in this encounter Plan of Treatment Upcoming Encounters Date Type Department Care Team (Late st Contact Info) Description 03/13/2024 2:00 PM EDT Office Visit Dermatology [facility] [address] [facility] [place] [address] Francisco Watson MD 200 [facility] [place] [address] 03/17/2024 7:05 AM EDT Laboratory Lab Mobile Phlebotomy [facility] [address] [place] [address] Mvmg, Gml Mobile Home Draw [address] [place] [address] 03/18/2024 11:00 AM EDT Office Visit Urology, [facility] [address] [facility] [place] [address] Frank Peraza MD [address] [place] [address] [place] [address] 03/24/2024 2:30 PM EDT Office Visit Hematology/Oncology [facility] 200 [facility] [place] [id number] Ayaka Tatum CRNP 400 [facility] [place] [id number] 03/30/2024 12:00 PM EDT Office Visit Family Practice [facility] [address] [place] [address] Kristen Vences DO [address] [place] [address] 03/31/2024 7:05 AM EDT Laboratory Lab Mobile Phlebotomy [facility] [address] [place] [address] Mvmg, Gml Mobile Home Draw [address] [facility] [place] [address] 04/07/2024 10:00 AM EDT Office Visit Gastroenterology, [facility] [address] [place] [address] Lamar Tatum CRNP [address] [place] [address] 04/14/2024 7:05 AM EDT Laboratory Lab Mobile Phlebotomy [facility] [address] [place] [address] Mvmg, Gml Mobile Home Draw [address] [place] [address] 04/28/2024 7:05 AM EDT Laboratory Lab Mobile Phlebotomy [facility] [address] [address] Mvmg, Gml Mobile Home Draw [address] [place] [address] 05/12/2024 7:05 AM EDT Laboratory Lab Mobile Phlebotomy [facility] [address] [place] [address] Mvmg, Gml Mobile Home Draw 2520 [place] [address] 05/26/2024 7:05 AM EDT Laboratory Lab Mobile Phlebotomy [facility] [address] [place] [address] Mvmg, Gml Mobile Home Draw [address] [address] 06/09/2024 7:05 AM EDT Laboratory Lab Mobile Phlebotomy [facility] [address] [place] [address] Mvmg, Gml Mobile Home Draw [address] [facility] [place] [address] 06/23/2024 7:05 AM EDT Laboratory Lab Mobile Phlebotomy [facility] [address] [place] [address] Mvmg, Gml Mobile Home Draw [address] [facility] [place] [address] 07/07/2024 7:05 AM EDT Laboratory Lab Mobile Phlebotomy [facility] [address] [facility] [place] [address] Mvmg, Gml Mobile Home Draw [address] [facility] [place] [address] 07/21/2024 7:05 AM EDT Laboratory Lab Mobile Phlebotomy [facility] [address] [facility] [place] [address] Mvmg, Gml Mobile Home Draw [address] [facility] [place] [address] 08/04/2024 7:05 AM EDT Laboratory Lab Mobile Phlebotomy [facility] [address] [facility] [place] [address] Mvmg, Gml Mobile Home Draw [address] [facility] [place] [address] 08/18/2024 7:05 AM EDT Laboratory Lab Mobile Phlebotomy [facility] [address] [facility] [place] [address] Mvmg, Gml Mobile Home Draw 2520 [place] [address] 08/20/2024 10:15 AM EDT Office Visit Ophthalmology, [facility] 132 [facility] [place] [address] Cody Gonzalez, DO [address] [place] [address] 09/01/2024 7:05 AM EDT Laboratory Lab Mobile Phlebotomy [facility] [address] [facility] [place], [place] [address] Mvmg, Gml Mobile Home Draw [address] [facility] [place], [place] [address] 09/15/2024 7:05 AM EDT Laboratory Lab Mobile Phlebotomy [facility] [address] [facility] [place] [address] Mvmg, Gml Mobile Home Draw [address] [facility] [place] [address] 10/12/2024 10:20 AM EST Office Visit Pulmonary Medicine, [facility] [address] [place] [address] Jordan Stanley [facility] [address] [facility] [place] [address] Scheduled Procedures Name Priority Associated Diagnoses Date/Ti [...] Additional history exists CKD PHOS USE SMARTSET 38543 02/25/202501/31, 01/28/2023, 07/26/2022, Additional history exists CKD HGB USE SMARTSET 09146 03/03/202503/03, 03/03/2024, 02/26/2024, Additional history exists Lipid [...] this encounter Medical Devices Implanted Type Area Post Anesthesia Nurse Device Identifier Shelf Expiration Date Model / Serial / Lot Clareon Iol Aspheric Hydrophobic Acrylic Iol Implanted:Qty: 1 on 04/23/2023 by Cody Gonzalez DO at OR [facility] Lens Left: Eye 11/12/2025 CNA0T0 / [id number] / Viatorr Tips Endoprosthesis 8-10 Mm X 8cm / 2cm Implanted:Qty: 1 on 10/07/2020 by Go Alvarado MD at [facility] Right: Abdomen 03/03/2023 [id number] / / [id number] Description:Viatorr TIPS End oprosthesis 8-10 mm x 8cm / 2cm, Manufactored by [employer] Syr Pf 2ml Embospheres 100-300 - [id number] Implanted:Qty: 1 on 04/18/2021 by Kevin Lim DO at OR [facility] Left: Abdomen [email or web address] [id number] 11/25/2023 S220GH / / [id number] Lipiodol Injection - [id number] Implanted:Qty: 1 on 03/28/2022 at [facility] [employer] 03/01/2023 [id number] 01-2 / / [id number] Syr Pf 2ml Embospheres 100-300 - [id number] Implanted:Qty: 1 on 03/28/2022 at [facility] [email or web address] [id number] 08/31/2024 S220GH / / [id number] -[id number] Clareon Iol Aspheric Hydrophobic Acrylic Iol Implanted:Qty: 1 on 04/02/2023 by Cody Gonzalez DO at OR [facility] Right: Eye JAZMIN 11/12/2025 CNA0T0 / [id number] / documented as of this encounter Advance Directives Documents on File Type Date Recorded Patient Intramural Director Expl anation Advance Directives and Living Will 12/11/2022 ADVANCE DIRECTIVE / LIVING WILL LIVING WILL Power of Coding And Reimbursement Specialist 12/11/2022 POWER OF A TTORNEY Latest [...] the patient have Health Care Power of Coding And Reimbursement Specialist? No Care Teams Senior Animal Trainer Relationship Specialty Start Date End Date Francisco Cisse MD [address] [place] [address] PCP - General Internal Medicine 09/04/21 documented as of this encounter
--- OUTSIDE RECORDS SUMMARY | 2024-03-20 16:13 | External Medical Summary | Summary of Care ---
Author Name Unknown Organization [facility] Address [address] [facility] [address] Phone [phone] Care Team Providers Care Armored Car Guard And Driver Name Role Phone Francisco Cisse MD Primary Care Provider + Reason for Visit * Reason Onset Date Comments Advice 12/12/2023 Home Health 12/12/2023 Encounter Details Date Type Department Care Team (Late st Contact Info) Description 12/12/2023 Telephone General Internal Medicine [facility] 200 [facility] [place] [address] Francisco Cisse MD 200 [place] [address] Advice; Home Health Allergies No known active allergiesdocumented [...] mRNA, LNP-s, No Pre serve, 2-Dose Series ([employer]) 03/08/2021,02/15/2021 HepA Inact/HepB Recomb>=18yrs old 12/04/2019,04/2019,05/20/2019 11/19/2019 PPD 06/18/2017, 3,01/09/2012,0306/2011 Pneumococcal Conjugate Vacc, 13 Valent (Prevnar) 05/01/2017 Pneumococcal Polysaccharide PPV23 (Pneumovax) 08/28/2022,10/25/2015,07/14/2012 Season Influenza, Quad, PF, Adjuvanted, 65+ Yrs, IM (FLUAD) 10/07/2020(Deferred: Patient Refused - pt says he already had his shot last month at [facility] Handy Lyons and Mckinley Cobian [...] encounter Miscellaneous Notes * Telephone Encounter - Naima Zimmer LPN - 12/12/2023 9:29 AM EST Concerns KAITLYNN Schwartz, Calling from: Rich Report/Concerns of: Hematuria Symptoms: Hematuria, blood in stool with 12/11/23 BM, Spots of blood in brief. Vitals: T98.4 P71 RR16 BP 120/64 SP O2 97% RA Lung sounds- clear. Blood sugar 234- non fasting after breakfast. Narrative: Pt's reported that the hematuria is darker than pink but not collins red. Pt noted blood in BM last evening but did not describe the color. Pt had spots of blood in brief last evening and this morning. Pt denies dizziness and color looked good. Pt c/o pain in right lower back and rated pain a 2/10. Abd was distended (pt's baseline) with + BS. Last BM was last night. Pt was recently hospitalized with low HGB and D/C 12/03/2023. Called PCP office, spoke with Vicki whom spoke with PCP and advised that the pt goes back to the hospital. Called pt, made him aware and will comply. Called KAITLYNN Schwartz from [facility] and also made her aware. * Telephone Encounter - uSnita Yuen OSA - 12/12/2023 9:26 AM EST Reason for patient's call: Lana w/ [facility] OLIV[facility] wanting to speak w/nurse in regards to blood in urine. Caller was transferred to [facility] at the nurse line. documented in this encounter Plan of Treatment Upcoming Encounters Date Type Department Care Team (Late st Contact Info) Description 03/13/2024 2:00 PM EDT Office Visit Dermatology [facility] 200 [facility] [place] [address] Francisco Watson MD [address] [place] [address] 03/17/2024 7:05 AM EDT Laboratory Lab Mobile Phlebotomy [facility] [address] [place] [address] Mvmg, Gml Mobile Home Draw 2520 [facility] [place] [address] 03/18/2024 11:00 AM EDT Office Visit Urology, [facility] 132 [facility] [place] [address] Frank Peraza MD [address] [place] [address] [place] [address] 03/24/2024 2:30 PM EDT Office Visit Hematology/Oncology [facility] [address] [place] [phone] Ayaka Tatum CRNP 400 [facility] [place] [address] 03/30/2024 12:00 PM EDT Office Visit Family Practice [facility] 132 [facility] [place] [address] Kristen Vences DO 132 [facility] [place] [address] 03/31/2024 7:05 AM EDT Laboratory Lab Mobile Phlebotomy [facility] [address] [place] [address] Mvmg, Gml Mobile Home Draw [address] [place] [address] 04/07/2024 10:00 AM EDT Office Visit Gastroenterology, [facility] [address] [place] [address] Lamar Tatum CRNP [address] [place] [address] 04/14/2024 7:05 AM EDT Laboratory Lab Mobile Phlebotomy [facility] [address] [place] [address] Mvmg, Gml Mobile Home Draw [address] [place] [address] 04/28/2024 7:05 AM EDT Laboratory Lab Mobile Phlebotomy [facility] [address] [place] [address] Mvmg, Gml Mobile Home Draw [address] [place] [address] 05/12/2024 7:05 AM EDT Laboratory Lab Mobile Phlebotomy [facility] [address] [place] [address] Mvmg, Gml Mobile Home Draw [address] [place] [address] 05/26/2024 7:05 AM EDT Laboratory Lab Mobile Phlebotomy [facility] [address] [place] [address] Mvmg, Gml Mobile Home Draw [address] [place] [employer] [place] [address] 06/09/2024 7:05 AM EDT Laboratory Lab Mobile Phlebotomy [facility] [address] [place] [address] Mvmg, Gml Mobile Home Draw [address] [place] [address] 06/23/2024 7:05 AM EDT Laboratory Lab Mobile Phlebotomy [facility] [address] [place] [address] Mvmg, Gml Mobile Home Draw [address] [place] [place] [address] 07/07/2024 7:05 AM EDT Laboratory Lab Mobile Phlebotomy [facility] [address] [place] [address] Mvmg, Gml Mobile Home Draw 2520 [facility] [place] [address] 07/21/2024 7:05 AM EDT Laboratory Lab Mobile Phlebotomy [facility] [address] [facility] [place] [address] Mvmg, Gml Mobile Home Draw [address] [facility] [place] [address] 08/04/2024 7:05 AM EDT Laboratory Lab Mobile Phlebotomy [facility] [address] [place] [address] Mvmg, Gml Mobile Home Draw 25[address] [facility] [place] [address] 08/18/2024 7:05 AM EDT Laboratory Lab Mobile Phlebotomy [facility] [address] [facility] [place], [place] [address] Mvmg, Gml Mobile Home Draw [address]20 [facility] [address] 08/20/2024 10:15 AM EDT Office Visit Ophthalmology, [facility] 132 [facility] [place] [address] Cody Gonzalez DO 21 [place] [address] 09/01/2024 7:05 AM EDT Laboratory Lab Mobile Phlebotomy [facility] [address] [place] [address] Mvmg, Gml Mobile Home Draw 25[address] [facility] [place] [address] 09/15/2024 7:05 AM EDT Laboratory Lab Mobile Phlebotomy [facility] [address] [facility] [place], [place] [address] Mvmg, Gml Mobile Home Draw [address] [facility] [place] [address] 10/12/2024 10:20 AM EST Office Visit Pulmonary Medicine, [facility] [address] [place] [address] Jordan Stanley MD [address] [place] [address] [...] Additional history exists CKD PHOS USE SMARTSET 82177 02/25/202501/31, 01/28/2023, 07/26/2022, Additional history exists CKD HGB USE SMARTSET 32323 03/03/202503/03, 03/03/2024, 02/26/2024, Additional history exists Lipid [...] this encounter Medical Devices Implanted Type Area Adaptive Physical Education Specialist Device Identifier Shelf Expiration Date Model / Serial / Lot Clareon Iol Aspheric Hydrophobic Acrylic Iol Implanted:Qty: 1 on 04/23/2023 by Cody Gonzalez DO at OR [facility] Lens Left: Eye 11/12/2025 CNA0T0 / [id number] / Viatorr Tips Endoprosthesis 8-10 Mm X 8cm / 2cm Implanted:Qty: 1 on 10/07/2020 by Go Alvarado MD at [facility] Right: Abdomen 03/03/2023 [id number] / / [id number] Description:Viatorr TIPS End oprosthesis 8-10 mm x 8cm / 2cm, Manufactored by [employer] Syr Pf 2ml Embospheres 100-300 - [id number] Implanted:Qty: 1 on 04/18/2021 by Kevin Lim DO at OR [facility] Left: Abdomen [employer] [id number] 11/25/2023 S220GH / / [id number] Lipiodol Injection - [id number] Implanted:Qty: 1 on 03/28/2022 at [facility] [employer] 03/01/2023 40153-01 -2 / [id number] Syr Pf 2ml [facility] 100-300 - [id number] Implanted:Qty: 1 on 03/28/2022 at [facility] [employer] [id number] 08/31/2024 S220 / / [id number] -5 Clareon Iol Aspheric Hydrophobic Acrylic Iol Implanted:Qty: 1 on 04/02/2023 by Cody Gonzalez DO at [facility] Right: Eye JAZMIN 11/12/2025 CNA0T0 / [id number] / documented as of this encounter Advance Directives Documents on File Type Date Recorded Patient Power Line Installer And Repairer Expl anation Advance Directives and Living Will 12/11/2022 ADVANCE DIRECTIVE / LIVING WILL LIVING WILL Power of Computer Security Manager 12/11/2022 POWER OF A TTORNEY Latest [...] the patient have Health Care Power of Computer Security Manager? No Care Teams Armored Car Guard And Driver Relationship Specialty Start Date End Date Francisco Cisse MD [address] [place] [address] PCP - General Internal Medicine 09/04/21 documented as of this encounter
--- OUTSIDE RECORDS SUMMARY | 2024-03-20 16:14 | External Medical Summary | Summary of Care ---
Author Name Unknown Organization [facility] Address [address] [facility] [place] [address] Phone [phone] Care Team Providers Care Phlebotomy Services Technician Name Role Phone Francisco Cisse MD Primary Care Provider + Encounter Details Date Type Department Care Team (Late st Contact Info) Description 03/03/2024 Result Scan Unspecified Department Lamar Tatum CRNP [address] [place] [address] <No scans attached> Allergies No known active allergiesdocumented as of this encounter (statuses as of 03/04/2024) Medications Medication Sig Dispensed Refills Start Date [...] as of this encounter (statuses as of 03/04/2024) Active Problems Problem Noted Date Diagnosed Date [...] as of this encounter (statuses as of 03/04/2024) Resolved Problems Problem Noted Date Diagnosed Date [...] as of this encounter (statuses as of 03/04/2024) Immunizations Name Administration Dates Next Due COVID-19 mRNA, LNP-s, No Pre serve, 2-Dose Series (Pfizer) 03/08/2021,02/15/2021 HepA Inact/HepB Recomb>=18yrs old 12/04/2019,04/2019,05/20/2019 11/19/2019 PPD 06/18/2017, 3,01/09/2012,06/2011 Pneumococcal Conjugate Vacc, 13 Valent (Prevnar) 05/01/2017 Pneumococcal Polysaccharide PPV23 (Pneumovax) 08/28/2022,10/25/2015,07/14/2012 Season Influenza, Quad, PF, Adjuvanted, 65+ Yrs, IM (FLUAD) 10/07/2020(Deferred: Patient Refused - pt says he already had his shot last month at [facility] Handy Lyons and Mckinley Cobian [...] 03/13/2024 2:00 PM EDT Office Visit Dermatology [facility] [address] [place] [address] [address] Francisco Watson MD [address] [place] [address] [place] [address] 03/17/2024 7:05 AM EDT Laboratory Lab Mobile Phlebotomy [facility] [address] [facility] [place] [address] [facility] [address] [facility] [place], [place] [address] 03/18/2024 11:00 AM EDT Office Visit [facility], [facility] [place] [address] Frank Peraza MD [facility] [address] [place] [address] 03/24/2024 2:30 PM EDT Office Visit Hematology/Oncology [facility] [place] [address] [facility] [place], [place] [address] Ayaka Tatum CRNP [address] [facility] [place] [address] 03/30/2024 12:00 PM EDT Office Visit Family Practice [facility] 132 [facility] [place] [address] Kristen Vences DO 132 [facility] [place] [address] 03/31/2024 7:05 AM EDT Laboratory Lab Mobile Phlebotomy [facility] [address] [facility] [place], [place] [address] M[facility]mg, [facility] [address] [facility] [place], [place] [address] 04/07/2024 10:00 AM EDT Office Visit Gastroenterology, [facility] 132 [facility] [place] [address] Lamar Tatum CRNP 132 [facility] [place] [address] 04/14/2024 7:05 AM EDT Laboratory Lab Mobile Phlebotomy [facility] [address] [facility] [place] [address] [facility], [facility] [address] [facility] [place] [address] 04/28/2024 7:05 AM EDT Laboratory Lab Mobile Phlebotomy [facility] [address] [place] [address] M[facility], [facility] [address] [facility] [place] [address] 05/12/2024 7:05 AM EDT Laboratory Lab Mobile Phlebotomy [facility] [address] [place] [address] M[facility], [facility] [address] [place] [address] 05/26/2024 7:05 AM EDT Laboratory Lab Mobile Phlebotomy [facility] [address] [place] [address] Mvmg, [facility] [address] [place] [address] 06/09/2024 7:05 AM EDT Laboratory Lab Mobile Phlebotomy [facility] [address] [place] [address] Mvmg, [facility] [address] [place] [address] 06/23/2024 7:05 AM EDT Laboratory Lab Mobile Phlebotomy [facility] [address] [place] [address] Mvmg, [facility] [address] [place] [address] 07/07/2024 7:05 AM EDT Laboratory Lab Mobile Phlebotomy [facility] [address] [place] [address] Mvmg, G[facility] [address] [place] [address] 07/21/2024 7:05 AM EDT Laboratory Lab Mobile Phlebotomy [facility] [address] [place] [address] Mvmg, [facility] [address] [place] [address] 08/04/2024 7:05 AM EDT Laboratory Lab Mobile Phlebotomy [facility] [address] [employer] [place], [place] [address] M[facility], [facility] [address] [facility] [place] [address] 08/18/2024 7:05 AM EDT Laboratory Lab Mobile Phlebotomy [facility] [address] [employer] [place], [place] [address] Mvmg, [facility] [address] [facility] [place] [address] 08/20/2024 10:15 AM EDT Office Visit Ophthalmology, [facility] 132 [place] [address] Cody Gonzalez, DO 21 [facility] [place] [address] 09/01/2024 7:05 AM EDT Laboratory Lab Mobile Phlebotomy [facility] [address] [employer] [place], [place] [address] Mvmg, [facility] [address] [facility] [place] [address] 09/15/2024 7:05 AM EDT Laboratory Lab Mobile Phlebotomy [facility] [address] [employer] [place], [place] [address] Mvmg, [facility] [address] [facility] [place] [address] 10/12/2024 10:20 AM EST Office Visit Pulmonary Medicine, [facility] 132 [facility] [place] [address] Jordan Stanley MD [address] [place] [address] Scheduled Procedures Name Priority Associated Diagnoses Date/Ti [...] Additional history exists CKD PHOS USE SMARTSET 48028 02/25/202501/31, 01/28/2023, 07/26/2022, Additional history exists CKD HGB USE SMARTSET 24899 03/03/202503/03, 03/03/2024, 02/26/2024, Additional history exists Lipid [...] this encounter Medical Devices Implanted Type Area Criminal Defense Attorney Device Identifier Shelf Expiration Date Model / Serial / Lot Clareon Iol Aspheric Hydrophobic Acrylic Iol Implanted:Qty: 1 on 04/23/2023 by Cody Gonzalez DO at OR [facility] Lens Left: Eye 11/12/2025 CNA0T0 / [id number] / Viatorr Tips Endoprosthesis 8-10 Mm X 8cm / 2cm Implanted:Qty: 1 on 10/07/2020 by Go Alvarado MD at [facility] Right: Abdomen 03/03/2023 [id number] / / [id number] Description:Viatorr TIPS End oprosthesis 8-10 mm x 8cm / 2cm, Manufactored by [employer] Syr Pf 2ml Embospheres 100-300 - [id number] Implanted:Qty: 1 on 04/18/2021 by Kevin Lim DO at OR [facility] Left: Abdomen [employer] [id number] 11/25/2023 S220GH / / [id number] Lipiodol Injection - [id number] Implanted:Qty: 1 on 03/28/2022 at [facility] [employer] 03/01/2023 [id number] 01-2 / / [id number] Syr Pf 2ml Embospheres 100-300 - [id number] Implanted:Qty: 1 on 03/28/2022 at [facility] [employer] [id number] 08/31/2024 S220GH / / [id number] -[id number] Clareon Iol Aspheric Hydrophobic Acrylic Iol Implanted:Qty: 1 on 04/02/2023 by Cody Gonzalez DO at OR [facility] Right: Eye JAZMIN 11/12/2025 CNA0T0 / [id number] / documented as of this encounter Procedures Procedure Name Priority Date/Time Associated Diagnosis Comments OUTSIDE LAB RESULTS 03/03/2024 documented in this encounter Results * OUTSIDE LAB RESULTS (03/03/2024) 03/03/2024 [facility] documented in this encounter Advance Directives Documents on File Type Date Recorded 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 No Care Teams Phlebotomy Services Technician Relationship Specialty Start Date End Date Francisco Cisse MD 200 [place] [address] PCP - General Internal Medicine 09/04/21 documented as of this encounter
--- OUTSIDE RECORDS SUMMARY | 2024-03-20 16:14 | External Medical Summary | Summary of Care ---
Author Name Unknown Organization [facility] Address [address] [facility] [address] Phone [phone] Care Team Providers Care Patient Care Nursing Assistant Name Role Phone Francisco Cisse MD Primary Care Provider + Reason for Visit * Reason Onset Date Comments Test Results 03/03/2024 X-ray Encounter Details Date Type Department Care Team (Late st Contact Info) Description 03/03/2024 Telephone General Internal Medicine [facility] [address] [facility] [place] [address] Francisco Cisse MD 200 [place] [address] Test Results (X-ray ) Allergies No known active allergiesdocumented as of this encounter (statuses as of 03/03/2024) Medications Medication Sig Dispensed Refills Start Date [...] as of this encounter (statuses as of 03/03/2024) Active Problems Problem Noted Date Diagnosed Date [...] as of this encounter (statuses as of 03/03/2024) Resolved Problems Problem Noted Date Diagnosed Date [...] as of this encounter (statuses as of 03/03/2024) Immunizations Name Administration Dates Next Due COVID-19 mRNA, LNP-s, No Pre serve, 2-Dose Series (n1health) 03/08/2021,02/15/2021 HepA Inact/HepB Recomb>=18yrs old 12/04/2019,04/2019,05/20/2019 11/19/2019 [...] encounter Miscellaneous Notes * Telephone Encounter - Korin Allison LPN [...] 03/13/2024 2:00 PM EDT Office Visit [facility]ology [facility] [address] [facility] [place] [address] Francisco Watson MD [address] [facility] [place] [address] 03/17/2024 7:05 AM EDT Laboratory Lab Mobile Phlebotomy [facility] [address] [facility] [place] [address] M[facility]mg, [facility] Draw [address] [facility] [place] [address] 03/18/2024 11:00 AM EDT Office Visit Urology, [facility] 132 [facility] [place] [address] Frank Peraza MD [address] [address] [place] [address] 03/24/2024 2:30 PM EDT Office Visit Hematology/Oncology [facility] [address] [facility] [place] [id number] Ayaka Tatum CRNP 400 [facility] [place] [address] 03/30/2024 12:00 PM EDT Office Visit Family Practice [facility] [place] [place] [address] Kristen Vences DO 132 [facility] [place] [address] 03/31/2024 7:05 AM EDT Laboratory Lab Mobile Phlebotomy [facility] [address] [facility] [place] [address] Mvmg, Gml [facility] Draw [address] [facility] [place], [place] [address] 04/07/2024 10:00 AM EDT Office Visit [facility]enterology, [facility] [place] [address] Lamar [facility]atum [facility]NP [facility] [address] 04/14/2024 7:05 AM EDT Laboratory Lab Mobile Phlebotomy [facility] [address] [facility] [place], [place] [address] Mvmg, Gml [facility] Draw [address] [facility] [place], [place] [address] 04/28/2024 7:05 AM EDT Laboratory Lab Mobile Phlebotomy [facility] [address] [facility] [place], [place] [address] Mvmg, Gml [facility] Draw [address] [facility] [place], [place] [address] 05/12/2024 7:05 AM EDT Laboratory Lab Mobile Phlebotomy [facility] [address] [facility] [place], [place] [address] Mvmg, Gml [facility] Draw [address] [facility] [place] [address] 05/26/2024 7:05 AM EDT Laboratory Lab Mobile Phlebotomy [facility] [address] [place], [place] [address] Mvmg, Gml [facility] Draw [address] [facility] [place] [address] 06/09/2024 7:05 AM EDT Laboratory Lab Mobile Phlebotomy [facility] [address] [place] [address] Mvmg, Gml [facility] Draw [address] [place] [address] 06/23/2024 7:05 AM EDT Laboratory Lab Mobile Phlebotomy [facility] [address] [place] [address] Mvmg, Gml [facility] [address] [place] [address] 07/07/2024 7:05 AM EDT Laboratory Lab Mobile Phlebotomy [facility] [address] [place] [address] Mvmg, Gml [facility] Draw [address] [place] [address] 07/21/2024 7:05 AM EDT Laboratory Lab Mobile Phlebotomy [facility] [address] [place] [address] Mvmg, Gml [facility] Draw [address] [place] [address] 08/04/2024 7:05 AM EDT Laboratory Lab Mobile Phlebotomy [facility] [address] [place] [address] Mvmg, Gml [facility] [address] [place] [address] 08/18/2024 7:05 AM EDT Laboratory Lab Mobile Phlebotomy [facility] [address] [place] [address] Mvmg, [facility]ml [facility] [address] [place] [address] 08/20/2024 10:15 AM EDT Office Visit Ophthalmology, [facility] [address] [place] [address] Cody Gonzalez, DO 21 [facility] [place] [address] 09/01/2024 7:05 AM EDT Laboratory Lab Mobile Phlebotomy [facility] [address] [place] [address] Mvmg, Gml Mobile Home Draw [address] [facility] [place], [place] [address] 09/15/2024 7:05 AM EDT Laboratory Lab Mobile Phlebotomy [facility] [address] [facility] [place] [address] Mvmg, Gml Mobile Home Draw [address] [facility] [place], [place] [address] 10/12/2024 10:20 AM EST Office Visit Pulmonary Medicine, [facility] [address] [place] [address] Jordan Stanley MD [address] [place] [address] Scheduled Procedures Name Priority Associated Diagnoses Date/Ti [...] 02/26/2024, 01/30, 01/24/2024, Additional history exists CKD HGB USE SMARTSET 85443 02/25/202502/25, 02/26/2024, 02/18/2024, Additional history exists CKD PHOS USE SMARTSET 23417 02/25/202501/31, 01/28/2023, 07/26/2022, Additional history exists Lipid Panel 01/28/2028 01/28/2023, [...] this encounter Medical Devices Implanted Type Area Fleet Service Manager Device Identifier Shelf Expiration Date Model / Serial / Lot Clareon Iol Aspheric Hydrophobic Acrylic Iol Implanted:Qty: 1 on 04/23/2023 by Cody Gonzalez DO at OR [facility] Lens Left: Eye 11/12/2025 CNA0T0 / [id number] / Viatorr Tips Endoprosthesis 8-10 Mm X 8cm / 2cm Implanted:Qty: 1 on 10/07/2020 by Go Alvarado MD at [facility] Right: Abdomen 03/03/2023 [id number] / / [id number] Description:Viatorr TIPS End oprosthesis 8-10 mm x 8cm / 2cm, Manufactored by [employer] Syr Pf 2ml Embospheres 100-300 - [id number] Implanted:Qty: 1 on 04/18/2021 by Kevin Lim DO at OR [facility] Left: Abdomen [email or web address] [id number] 11/25/2023 S220GH / / [id number] Lipiodol Injection - [id number] Implanted:Qty: 1 on 03/28/2022 at [facility] [employer] 03/01/2023 [id number] 01-2 / / [id number] Syr Pf 2ml Embospheres 100-300 - [id number] Implanted:Qty: 1 on 03/28/2022 at [facility] [email or web address] [id number] 08/31/2024 S220GH / / [id number] -[id number] Clareon Iol Aspheric Hydrophobic Acrylic Iol Implanted:Qty: 1 on 04/02/2023 by Cody Gonzalez DO at OR [facility] Right: Eye JAZMIN 11/12/2025 CNA0T0 / [id number] / documented as of this encounter Advance Directives Documents on File Type Date Recorded Patient Heel Slugger Expl anation Advance Directives and Living Will 12/11/2022 ADVANCE DIRECTIVE / LIVING WILL LIVING WILL Power of Knapsack Sprayer 12/11/2022 POWER OF A TTORNEY Latest Code [...] the patient have Health Care Power of Knapsack Sprayer? No Care Teams Patient Care Nursing Assistant Relationship Specialty Start Date End Date Francisco Cisse MD 200 [facility] [place] [address] PCP - General Internal Medicine 09/04/21 documented as of this encounter
--- OUTSIDE RECORDS SUMMARY | 2024-03-20 16:14 | External Medical Summary | Summary of Care ---
Author Name Unknown Organization [facility] Address [address] [place] [address] Phone [phone] Care Team Providers Care Hospital Education Coordinator Name Role Phone Francisco Cisse MD Primary Care Provider + Encounter Details Date Type Department Care Team (Late st Contact Info) Description 03/04/2024 Telephone Hematology/Oncology [facility] [place] [address] [facility] [phone] Ayaka Tatum CRNP [address] [place] [address] Allergies No known active allergiesdocumented as [...] mRNA, LNP-s, No Pre serve, 2-Dose Series (Mascoma) 03/08/2021,02/15/2021 HepA Inact/HepB Recomb>=18yrs old 12/04/2019,04/2019,05/20/2019 11/19/2019 PPD 06/18/2017, 3,01/09/2012,06/2011 Pneumococcal Conjugate Vacc, 13 Valent (Prevnar) 05/01/2017 Pneumococcal Polysaccharide PPV23 (Pneumovax) 08/28/2022,10/25/2015,07/14/2012 Season Influenza, Quad, PF, Adjuvanted, 65+ Yrs, IM (FLUAD) 10/07/2020(Deferred: Patient Refused - pt says he already had his shot last month at [facility] [...] Telephone Encounter - Josephine Murphy RN - 03/04/2024 1:23 PM EDT Hgb 7.1. Called patient, he states that he will be able to have a ride tomorrow if [facility] can take him. Patient to receive 1 unit PRBC. Called [facility] blood bank (Flakito). They will not have an issue with same day T&S. Called [facility] (Krista). They cannot add patient for tomorrow. Patient scheduled for Saturday at 11am. She will have him added with central scheduling. Patient verbalized understanding of appt time. Faxed order to [facility]. Message sent to Mukul Delgado- confirmed that hospitalist can consent patient. TT sent to Krista to update her. * Telephone Encounter - Ayaka Tatum CRNP - 03/04/2024 12:54 PM EDT Results for orders placed or performed in visit on 03/03/24 CBC Result Value Ref Range WBC 4.00 4.00 - 10.80 K/uL RBC 2.19 4.50 - 5.25 M/uL HGB 7.1 (L) 14.0 - 16.8 g/dL HCT 22.7 (L) 40.0 - 48.4 % MCV 103.7 82.0 - 99.5 fL MCH 32.4 27.0 - 34.0 pg MCHC 31.3 32.0 - 36.0 g/dL RDW 22.2 11.5 - 15.5 % PLT 96 (L) 140 - 400 K/uL MPV 12.6 6.6 - 11.1 fL nRBCs 1 (H) <=0 /100 WBCs DIFFERENTIAL, AUTOMATED Result Value Ref Range WBC 4.00 4.00 - 10.80 K/uL Neutrophils % 73.6 40.0 - 75.0 % Lymphocytes % 14.8 (L) 18.0 - 42.0 % Monocytes % 5.3 1.0 - 11.0 % Eosinophils % 4.8 0.0 - 6.0 % Basophils % 0.5 0.0 - 2.0 % Immature Granulocytes % 1.0 0.0 - 2.0 % Absolute Neutrophils 2.95 1.80 - 7.70 K/uL Absolute Lymphocytes 0.59 (L) 1.00 - 4.80 K/ul Absolute Monocytes 0.21 0.00 - 1.10 K/uL Absolute Eosinophils 0.19 0.00 - 0.70 K/uL Absolute Basophils 0.02 0.00 - 0.20 K/uL Absolute Immature Granulocytes 0.04 0.00 - 0.20 K/uL DIFFERENTIAL, TECHNOLOGIST REVIEW Result Value Ref Range Ovalocytes Moderate (A) None Seen Schistocytes Few (A) None Seen Tear Drop Cells Moderate (A) None Seen *Note: Due to a large number of results and/or encounters for the requested time period, some results have not been displayed. A complete set of results can be found in Results Review. Please assist patient in scheduling 1 unit PRBC transfusion at [facility]. Continue with weekly CBCd monitoring. documented in this encounter Plan of Treatment Upcoming Encounters Date Type Department Care Team (Late st Contact Info) Description 03/13/2024 2:00 PM EDT Office Visit Dermatology [facility] [address] [facility] [place] [address] Francisco Watson MD 200 [facility] [place] [address] 03/17/2024 7:05 AM EDT Laboratory Lab Mobile Phlebotomy [facility] [address] [facility] [place] [address] Mvmg, Gml Mobile Home Draw [address] [facility] [place] [address] 03/18/2024 11:00 AM EDT Office Visit Urology, [facility] 132 [facility] [place] [address] Frank Peraza MD [address] [address] [place] [address] 03/24/2024 2:30 PM EDT Office Visit Hematology/Oncology [facility] 200 [facility] [place] [address] Ayaka Tatum CRNP 400 [facility] [place] [address] 03/30/2024 12:00 PM EDT Office Visit Family Practice [facility] [address] [facility] [place] [address] Kristen Vences DO [address] [place] [address] 03/31/2024 7:05 AM EDT Laboratory Lab Mobile Phlebotomy [facility] [address] [facility] [place], [place] [address] Mvmg, Gml Mobile Home Draw [address] [facility] [place] [address] 04/07/2024 10:00 AM EDT Office Visit Gastroenterology, [facility] [address] [facility] [place] [address] Lamar Tatum CRNP 132 [facility] [place] [address] 04/14/2024 7:05 AM EDT Laboratory Lab Mobile Phlebotomy [facility] [address] [employer] [place], [place] [address] Mvmg, Gml Mobile Home Draw [address] [facility] [place] [address] 04/28/2024 7:05 AM EDT Laboratory Lab Mobile Phlebotomy [facility] [address] [place], [place] [address] Mvmg, Gml Mobile Home Draw [address] [facility] [place] [address] 05/12/2024 7:05 AM EDT Laboratory Lab Mobile Phlebotomy [facility] [address] [employer] [place] [address] Mvmg, Gml Mobile Home Draw [address] [place] [address] 05/26/2024 7:05 AM EDT Laboratory Lab Mobile Phlebotomy [facility] [address] [place] [address] Mvmg, Gml Mobile Home Draw [address] [facility] [place] [address] 06/09/2024 7:05 AM EDT Laboratory Lab Mobile Phlebotomy [facility] [address] [place] [address] Mvmg, Gml Mobile Home Draw [address] [place] [address] 06/23/2024 7:05 AM EDT Laboratory Lab Mobile Phlebotomy [facility] [address] [place] [address] Mvmg, Gml Mobile Home Draw [address] [place] [address] 07/07/2024 7:05 AM EDT Laboratory Lab Mobile Phlebotomy [facility] [address] [place] [address] Mvmg, Gml Mobile Home Draw [address] [place] [address] 07/21/2024 7:05 AM EDT Laboratory Lab Mobile Phlebotomy [facility] [address] [place] [address] Mvmg, Gml Mobile Home Draw [address] [place] [address] 08/04/2024 7:05 AM EDT Laboratory Lab Mobile Phlebotomy [facility] [address] [place] [address] Mvmg, Gml Mobile Home Draw [address] [place] [address] 08/18/2024 7:05 AM EDT Laboratory Lab Mobile Phlebotomy [facility] [address] [place] [address] Mvmg, Gml Mobile Home Draw [address] [place] [address] 08/20/2024 10:15 AM EDT Office Visit Ophthalmology, [facility] [address] [place] [address] Cody Gonzalez, DO [address] [facility] [place] [address] 09/01/2024 7:05 AM EDT Laboratory Lab Mobile Phlebotomy [facility] [address] [employer] [place], [place] [address] Mvmg, Gml Mobile Home Draw [address] [facility] [place] [address] 09/15/2024 7:05 AM EDT Laboratory Lab Mobile Phlebotomy [facility] [address] [facility] [place] [address] Mvmg, Gml Mobile Home Draw [address] [facility] [place], [place] [address] 10/12/2024 10:20 AM EST Office Visit Pulmonary Medicine, [facility] [address] [place] [address] Jordan Stanley MD [address] [place] [address] [address] Scheduled Procedures Name Priority Associated Diagnoses Date/Ti [...] Additional history exists CKD PHOS USE SMARTSET 44675 02/25/202501/31, 01/28/2023, 07/26/2022, Additional history exists CKD HGB USE SMARTSET 42391 03/03/202503/03, 03/03/2024, 02/26/2024, Additional history exists Lipid [...] encounter Medical Devices Implanted Type Area Machine Cell Tuber Device Identifier Shelf Expiration Date Model / Serial / Lot Clareon Iol Aspheric Hydrophobic Acrylic Iol Implanted:Qty: 1 on 04/23/2023 by Cody Gonzalez DO at OR [facility] Lens Left: Eye 11/12/2025 CNA0T0 / [id number] / Viatorr Tips Endoprosthesis 8-10 Mm X 8cm / 2cm Implanted:Qty: 1 on 10/07/2020 by Go Alvarado MD at [facility] Right: Abdomen 03/03/2023 [id number] / / [id number] Description:Viatorr TIPS End oprosthesis 8-10 mm x 8cm / 2cm, Manufactored by [employer] Syr Pf 2ml Embospheres 100-300 - [id number] Implanted:Qty: 1 on 04/18/2021 by Kevin Lim DO at OR [facility] Left: Abdomen [employer] [id number] 11/25/2023 S220GH / / [id number] Lipiodol Injection - [id number] Implanted:Qty: 1 on 03/28/2022 at [facility] [employer] 03/01/2023 [id number] 01-2 / / [id number] Syr Pf 2ml Embospheres 100-300 - [id number] Implanted:Qty: 1 on 03/28/2022 at [facility] [employer] [id number] 08/31/2024 S220GH / / [id number] Clareon Iol Aspheric Hydrophobic Acrylic Iol Implanted:Qty: 1 on 04/02/2023 by Cody Gonzalez DO at OR [facility] Right: Eye JAZMIN 11/12/2025 CNA0T0 / [id number] / documented as of this encounter Advance Directives Documents on File Type Date Recorded 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 No Care Teams Hospital Education Coordinator Relationship Specialty Start Date End Date Francisco Cisse MD 200 [place] [address] PCP - General Internal Medicine 09/04/21 documented as of this encounter
--- OUTSIDE RECORDS SUMMARY | 2024-03-20 16:14 | External Medical Summary | Summary of Care ---
Author Name Unknown Organization [facility] Address [address] [place] [facility] [place] [address] Phone [phone] Care Team Providers Care Esl Instructional Assistant Name Role Phone Francisco Cisse MD Primary Care Provider + Reason for Referral * Evaluate & Treat - Unlimited Visits (Within 30 days (routine)) - Authorized Specialty Diagnoses / Procedures Referred By Chacho fleming Referred To Contact Physical Therapy / Physical Medicine And Rehab Diagnoses Other closed fracture of twelfth thoracic vertebra, sequela Closed compression fracture of L2 lumbar vertebra, initial encounter ([facility]) Francisco Cisse MD 200 [facility] [place] [address] Referral ID Status Reason Start Date Expiration Date Visits Requested Visits Authorized [id number] Authorized Specialty Services Required 03/05/2024 999 999 [...] State Rey Avilez [address] [place] [address] Francisco Cisse MD 200 [facility] [place] [address] Test Results (X-ray ); Home Health Allergies No known active allergiesdocumented as of this encounter (statuses as of 03/05/2024) Medications Medication Sig Dispensed Refills Start Date [...] mg NEBULIZER PRN 03/18/2023 03/17/2024 Act orderick Albuterol Sulfate (Proventil) (5 MG/ML) 0.5% *conc* inhalation solution 2.5 mgIndications:SOB (shortness of breath) 2.5 mg NEBULIZER PRN 03/18/2023 03/17/2024 Act roderick documented as of this encounter (statuses as of 03/05/2024) Active Problems Problem Noted Date Diagnosed Date [...] as of this encounter (statuses as of 03/05/2024) Resolved Problems Problem Noted Date Diagnosed Date [...] as of this encounter (statuses as of 03/05/2024) Immunizations Name Administration Dates Next Due COVID-19 [...] - 03/04/2024 9:38 AM EDT Cristina from [facility] was asked by patient to call office Patient would like to know if he can get an order for PT with [facility] To help with strengthening and proper ambulation with a L2 compression deformity Please advise Please fax to [phone] * Telephone Encounter - Korin Allison LPN [...] Visit Dermatology [facility] 200 [facility] [place] [address] Francisco Watson MD 200 [facility] [place] [address] 03/17/2024 7:05 AM EDT Laboratory Lab Mobile Phlebotomy [facility] [address] [facility] [place] [address] Mvmg, Gml Mobile Home Draw [address] [employer] [place] [address] 03/18/2024 11:00 AM EDT Office Visit Urology, [facility] 132 [facility] [place] [address] Frank Peraza MD 27 [facility] [address] [place] [address] 03/24/2024 2:30 PM EDT Office Visit Hematology/Oncology [facility] [place] 200 [facility] [place] [id number] Ayaka [facility]atum [facility]NP [facility] [place] [address] 03/30/2024 12:00 PM EDT Office Visit Family Practice [facility] 132 [facility] [place] [address] Kristen Vences DO [facility] [place] [address] 03/31/2024 7:05 AM EDT Laboratory Lab Mobile Phlebotomy [facility] [address] [facility] [place] [address] Mvmg, Gml Mobile Home Draw 25[address] [facility] [place], [place] [address] 04/07/2024 10:00 AM EDT Office Visit Gastroenterology, [facility] 132 [facility] [place] [address] Lamar Tatum CRNP 132 [facility] [place] [address] 04/14/2024 7:05 AM EDT Laboratory Lab Mobile Phlebotomy [facility] [address] [facility] [place] [address] Mvmg, Gml Mobile Home Draw 2520 [facility] [place], [place] [address] 04/28/2024 7:05 AM EDT Laboratory Lab Mobile Phlebotomy [facility] [address] [employer] [facility] [place] [address] Mvmg, Gml Mobile Home Draw [address] [employer] [facility] [place], [place] [address] 05/12/2024 7:05 AM EDT Laboratory Lab Mobile Phlebotomy [facility] [address] [place] [address] Mvmg, Gml Mobile Home Draw 25[address] [facility] [place] [address] 05/26/2024 7:05 AM EDT Laboratory Lab Mobile Phlebotomy [facility] [address] [facility] [place] [address] Mvmg, Gml Mobile Home Draw [address] [facility] [place] [address] 06/09/2024 7:05 AM EDT Laboratory Lab Mobile Phlebotomy [facility] [address] [facility] [place] [address] Mvmg, Gml Mobile Home Draw 2520 [place] [address] 06/23/2024 7:05 AM EDT Laboratory Lab Mobile Phlebotomy [facility] [address] [facility] [place] [address] Mvmg, Gml Mobile Home Draw [address] [place] [address] 07/07/2024 7:05 AM EDT Laboratory Lab Mobile Phlebotomy [facility] [address] [facility] [place] [address] Mvmg, Gml Mobile Home Draw 2520 [place] [address] 07/21/2024 7:05 AM EDT Laboratory Lab Mobile Phlebotomy [facility] [address] [place] [address] Mvmg, Gml Mobile Home Draw [address] [place] [address] 08/04/2024 7:05 AM EDT Laboratory Lab Mobile Phlebotomy [facility] [address] [facility] [place] [address] Mvmg, Gml Mobile Home Draw [address] [facility] [place] [address] 08/18/2024 7:05 AM EDT Laboratory Lab Mobile Phlebotomy [facility] [address] [facility] [place] [address] Mvmg, Gml Mobile Home Draw [address] [employer] [place], [place] [address] 08/20/2024 10:15 AM EDT Office Visit Ophthalmology, [facility] 132 [facility] [place] [address] Cody Gonzalez DO [facility] [place] [address] 09/01/2024 7:05 AM EDT Laboratory Lab Mobile Phlebotomy [facility] [address] [employer] [place] [address] Mvmg, Gml Mobile Home Draw [address] [employer] [place] [address] 09/15/2024 7:05 AM EDT Laboratory Lab Mobile Phlebotomy [facility] [address] [employer] [place] [address] Mvmg, Gml Mobile Home Draw [address] [employer] [place] [address] 10/12/2024 10:20 AM EST Office Visit Pulmonary Medicine, [facility] 132 [facility] [place] [address] Jordan Stanley MD [address] [place] [address] [address] Scheduled Procedures Name Priority Associated Diagnoses Date/Ti [...] Additional history exists CKD PHOS USE SMARTSET 88994 02/25/202501/31, 01/28/2023, 07/26/2022, Additional history exists CKD HGB USE SMARTSET 93392 03/03/202503/03, 03/03/2024, 02/26/2024, Additional history exists Lipid [...] this encounter Medical Devices Implanted Type Area Double Cut Off Saw Operator Device Identifier Shelf Expiration Date Model / Serial / Lot Clareon Iol Aspheric Hydrophobic Acrylic Iol Implanted:Qty: 1 on 04/23/2023 by Cody Gonzalez DO at OR [facility] Lens Left: Eye 11/12/2025 CNA0T0 / [id number] / Viatorr Tips Endoprosthesis 8-10 Mm X 8cm / 2cm Implanted:Qty: 1 on 10/07/2020 by Go Alvarado MD at [facility] Right: Abdomen 03/03/2023 [id number] / / [id number] Description:Viatorr TIPS End oprosthesis 8-10 mm x 8cm / 2cm, Manufactored by [employer] Syr Pf 2ml Embospheres 100-300 - [id number] Implanted:Qty: 1 on 04/18/2021 by Kevin Lim DO at OR [facility] Left: Abdomen [employer] [id number] 11/25/2023 S220GH / / [id number] Lipiodol Injection - [id number] Implanted:Qty: 1 on 03/28/2022 at [facility] [employer] 03/01/2023 [id number] 01-2 / / [id number] Syr Pf 2ml Embospheres 100-300 - [id number] Implanted:Qty: 1 on 03/28/2022 at [facility] [employer] [id number] 08/31/2024 S220GH / / [id number] Clareon Iol Aspheric Hydrophobic Acrylic Iol Implanted:Qty: 1 on 04/02/2023 by Cody Gonzalez DO at OR [facility] Right: Eye JAZMIN 11/12/2025 CNA0T0 / [id number] / documented as of this encounter Visit Diagnoses Diagnosis Other closed fracture of twelfth thoracic vertebra, sequela- Primary Closed compression fracture of L2 lumbar vertebra, initial encounter (HCC) documented in this encounter Advance Directives Documents on File Type Date Recorded 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 No Care Teams Esl Instructional Assistant Relationship Specialty Start Date End Date Francisco Cisse MD [address] [facility] [place] [address] PCP - General Internal Medicine 09/04/21 documented as of this encounter
--- OUTSIDE RECORDS SUMMARY | 2024-03-20 16:14 | External Medical Summary | Summary of Care ---
Author Name Unknown Organization [facility] Address [address] [address] Phone [phone] Care Team Providers Care Ground School Instructor Name Role Phone Francisco Cisse MD Primary Care Provider + Reason for Visit * Reason Onset Date Comments Test Results 03/03/2024 X-ray Home Health 03/03/2024 Encounter Details Date Type Department Care Team (Late st Contact Info) Description 03/03/2024 Telephone General Internal Medicine [facility] 200 [facility] [place] [address] Francisco Cisse MD 200 [place] [address] Test Results (X-ray ); Home Health Allergies [...] already had his shot last month at [facility] Handy Lyons and Mckinley Cobian made [...] encounter Miscellaneous Notes * Addendum Note - Dinah Mccormick LPN - 03/04/2024 9:50 AM EDTAddended by: DINAH MCCORMICK on: 03/04/2024 09:50 AM Modules accepted: Orders * Telephone Encounter - Dinah Mccormick LPN - 03/04/2024 9:38 AM EDT Cristina from [employer] was asked by patient to call office Patient would like to know if he can get an order for PT with [employer] To help with strengthening and proper ambulation with a L2 compression deformity Please advise Please fax to [phone] * Telephone Encounter - Korin Allison LPN [...] [place] [address] [place] [address] [address] Francisco Watson MD 200 [facility] [place] [address] 03/17/2024 7:05 AM EDT Laboratory Lab Mobile Phlebotomy [facility] [address]20 [facility] [place] [address] Mvmg, Gml [facility] Home Draw 2520 [facility] [place] [address] 03/18/2024 11:00 AM EDT Office Visit [facility] [address] Frank Peraza MD [address] [place] [address] [place] [address] 03/24/2024 2:30 PM EDT Office Visit Hematology/Oncology [facility] 200 [facility] [place] [address] Ayaka Tatum CRNP 400 [facility] [place] [address] 03/30/2024 12:00 PM EDT Office Visit Family Practice [facility] [address] Kristen Vences DO 132 [facility] [place] [address] 03/31/2024 7:05 AM EDT Laboratory Lab Mobile Phlebotomy [facility] [address] [facility] [place] [address] Mvmg, Gml Mobile Home Draw 2520 [facility] [place] [address] 04/07/2024 10:00 AM EDT Office Visit Gastroenterology, [facility] 132 [facility] [place] [address] Lamar Tatum CRNP 132 [facility] [place] [address] 04/14/2024 7:05 AM EDT Laboratory Lab Mobile Phlebotomy [facility] 2520 [facility] [place] [address] Mvmg, Gml Mobile Home Draw [address] [place] [address] 04/28/2024 7:05 AM EDT Laboratory Lab Mobile Phlebotomy [facility] 2520 [place] [address] Mvmg, Gml Mobile Home Draw 2520 [facility] [place] [address] 05/12/2024 7:05 AM EDT Laboratory Lab Mobile Phlebotomy [facility] [address] [facility] [place] [address] Mvmg, Gml Mobile Home Draw 2520 [place] [address] 05/26/2024 7:05 AM EDT Laboratory Lab Mobile Phlebotomy [facility] [address] [facility] [place] [address] Mvmg, Gml Mobile Home Draw 2520 [place] [address] 06/09/2024 7:05 AM EDT Laboratory Lab Mobile Phlebotomy [facility] [address] [facility] [place] [address] Mvmg, Gml Mobile Home Draw 2520 [place] [address] 06/23/2024 7:05 AM EDT Laboratory Lab Mobile Phlebotomy [facility] 2520 [facility] [place] [address] Mvmg, Gml Mobile Home Draw [address] [facility] [place] [address] 07/07/2024 7:05 AM EDT Laboratory Lab Mobile Phlebotomy [facility] [address] [place] [address] Mvmg, Gml Mobile Home Draw 2520 [place] [address] 07/21/2024 7:05 AM EDT Laboratory Lab Mobile Phlebotomy [facility] [address] [place] [address] Mvmg, Gml Mobile Home Draw [address] [place] [address] 08/04/2024 7:05 AM EDT Laboratory Lab Mobile Phlebotomy [facility] [address] [facility] [place], [place] [address] Mvmg, Gml Mobile Home Draw 2520 [facility] [place], [place] [address] 08/18/2024 7:05 AM EDT Laboratory Lab Mobile Phlebotomy [facility] 25[address] [facility] [place] [address] Mvmg, Gml Mobile Home Draw 2520 [facility] [place] [address] 08/20/2024 10:15 AM EDT Office Visit Ophthalmology, [facility] [address] [facility] [address] Cody Gonzalez DO 21 [facility] [place] [address] 09/01/2024 7:05 AM EDT Laboratory Lab Mobile Phlebotomy [facility] [address] [facility] [place], [place] [address] Mvmg, Gml Mobile Home Draw 2520 [facility] [place] [address] 09/15/2024 7:05 AM EDT Laboratory Lab Mobile Phlebotomy [facility] 25[address] [facility] [place], [place] [address] Mvmg, Gml Mobile Home Draw 2520 [facility] [place] [address] 10/12/2024 10:20 AM EST Office Visit Pulmonary Medicine, [facility] 132 [facility] [place] [address] Jordan Stanley MD [address] [address] Scheduled Procedures Name Priority Associated Diagnoses Date/Ti [...] Additional history exists CKD PHOS USE SMARTSET 86155 02/25/202501/31, 01/28/2023, 07/26/2022, Additional history exists CKD HGB USE SMARTSET 21757 03/03/202503/03, 03/03/2024, 02/26/2024, Additional history exists Lipid [...] encounter Medical Devices Implanted Type Area Manager Of International Device Identifier Shelf Expiration Date Model / Serial / Lot Clareon Iol Aspheric Hydrophobic Acrylic Iol Implanted:Qty: 1 on 04/23/2023 by Cody Gonzalez DO at OR [facility] Lens Left: Eye 11/12/2025 CNA0T0 / [id number] / Viatorr Tips Endoprosthesis 8-10 Mm X 8cm / 2cm Implanted:Qty: 1 on 10/07/2020 by Go Alvarado MD at [facility] Right: Abdomen 03/03/2023 [id number] / / [id number] Description:Viatorr TIPS End oprosthesis 8-10 mm x 8cm / 2cm, Manufactored by [employer] Syr Pf 2ml Embospheres 100-300 - [id number] Implanted:Qty: 1 on 04/18/2021 by Kevin Lim DO at OR [facility] Left: Abdomen [employer] [id number] 11/25/2023 S220GH / / [id number] Lipiodol Injection - [id number] Implanted:Qty: 1 on 03/28/2022 at [facility] [employer] 03/01/2023 [id number] 01-2 / / [id number] Syr Pf 2ml Embospheres 100-300 - [id number] Implanted:Qty: 1 on 03/28/2022 at [facility] [employer] [id number] 08/31/2024 S220GH / / [id number] -[id number] Clareon Iol Aspheric Hydrophobic Acrylic Iol Implanted:Qty: 1 on 04/02/2023 by Cody Gonzalez DO at OR [facility] Right: Eye JAZMIN 11/12/2025 CNA0T0 / [id number] / documented as of this encounter Advance Directives Documents on File Type Date Recorded Patient Manager Document Expl anation Advance Directives and Living Will 12/11/2022 ADVANCE DIRECTIVE / LIVING WILL LIVING WILL Power of Cement Grinding Mill Operator 12/11/2022 POWER OF A TTORNEY Latest [...] the patient have Health Care Power of Cement Grinding Mill Operator? No Care Teams Ground School Instructor Relationship Specialty Start Date End Date Francisco Cisse MD [address] [place] [address] PCP - General Internal Medicine 09/04/21 documented as of this encounter
--- OUTSIDE RECORDS SUMMARY | 2024-03-20 16:14 | External Medical Summary | Summary of Care ---
Author Name Unknown Organization [facility] Address [address] [place] [place] [place] [address] Phone [phone] Care Team Providers Care Firestopper Installer Name Role Phone Francisco Cisse MD Primary Care Provider + Encounter Details Date Type Department Care Team (Late st Contact Info) Description 03/04/2024 Telephone Hematology/Oncology [facility] [place] [address] [facility] [address] Ayaka Tatum CRNP 400 [place] [address] Allergies No known active allergiesdocumented as [...] hemoglobin A1c goal of less than 7.0% ([facility]) Use to test blood sugars 3 [...] mRNA, LNP-s, No Pre serve, 2-Dose Series (Event [employer]) 03/08/2021,02/15/2021 HepA Inact/HepB Recomb>=18yrs old 12/04/2019,04/2019,05/20/2019 [...] in scheduling 1 unit PRBC transfusion at [facility]. Continue with weekly CBCd monitoring. documented in this encounter Plan of Treatment Upcoming Encounters Date Type Department Care Team (Late st Contact Info) Description 03/13/2024 2:00 PM EDT Office Visit Dermatology [facility] [place] 200 [facility] [place] [address] Francisco Watson MD 200 [facility] [place] [address] 03/17/2024 7:05 AM EDT Laboratory Lab Mobile Phlebotomy [facility] 2520 [facility] [place] [address] Mvmg, Gml Mobile Home Draw 2520 [facility] [place] [address] 03/18/2024 11:00 AM EDT Office Visit Urology, [facility] 132 [facility] [place] [address] Frank Peraza MD [address] [address] [place] [address] 03/24/2024 2:30 PM EDT Office Visit Hematology/Oncology [facility] 200 [facility] [place] [phone] Ayaka Tatum CRNP [address] [place] [address] [place] [address] 03/30/2024 12:00 PM EDT Office Visit Family Practice [facility] 132 [facility] [place] [address] Kristen Vences DO 132 [facility] [place] [address] 03/31/2024 7:05 AM EDT Laboratory Lab Mobile Phlebotomy [facility] 2520 [facility] [place], [place] [address] Mvmg, Gml Mobile Home Draw 2520 [facility] [place] [address] 04/07/2024 10:00 AM EDT Office Visit Gastroenterology, [facility] 132 [facility] [place] [address] Lamar Tatum CRNP 132 [facility] [place] [address] 04/14/2024 7:05 AM EDT Laboratory Lab Mobile Phlebotomy [facility] 2520 [facility] [place] [address] Mvmg, Gml Mobile Home Draw 2520 [facility] [place] [address] 04/28/2024 7:05 AM EDT Laboratory Lab Mobile Phlebotomy [facility] 2520 [facility] [place] [address] Mvmg, Gml Mobile Home Draw 2520 [facility] [place] [address] 05/12/2024 7:05 AM EDT Laboratory Lab Mobile Phlebotomy [facility] 2520 [facility] [place] [address] Mvmg, Gml Mobile Home Draw 2520 [facility] [place] [address] 05/26/2024 7:05 AM EDT Laboratory Lab Mobile Phlebotomy [facility] 2520 [facility] [place] [address] Mvmg, Gml Mobile Home Draw 2520 [facility] [place] [address] 06/09/2024 7:05 AM EDT Laboratory Lab Mobile Phlebotomy [facility] 2520 [facility] [place] [address] Mvmg, Gml Mobile Home Draw 2520 [facility] [place] [address] 06/23/2024 7:05 AM EDT Laboratory Lab Mobile Phlebotomy [facility] [address] [place] [address] Mvmg, Gml Mobile Home Draw 2520 [facility] [place] [address] 07/07/2024 7:05 AM EDT Laboratory Lab Mobile Phlebotomy [facility] 2520 [facility] [place] [address] Mvmg, Gml Mobile Home Draw 2520 [facility] [place] [address] 07/21/2024 7:05 AM EDT Laboratory Lab Mobile Phlebotomy [facility] [address] [place] [address] Mvmg, Gml Mobile Home Draw 2520 [facility] [place], [place] [address] 08/04/2024 7:05 AM EDT Laboratory Lab Mobile Phlebotomy [facility] 2520 [facility] [place], [place] [address] Mvmg, Gml Mobile Home Draw 2520 [facility] [place], [place] [address] 08/18/2024 7:05 AM EDT Laboratory Lab Mobile Phlebotomy [facility] 2520 [facility] [place] [address] Mvmg, Gml Mobile Home Draw 2520 [facility] [place] [address] 08/20/2024 10:15 AM EDT Office Visit Ophthalmology, [facility] 132 [facility] [place] [address] Cody Gonzalez DO [address] [place] [address] [place] [address] 09/01/2024 7:05 AM EDT Laboratory Lab Mobile Phlebotomy [facility] 2520 [facility] [place], [place] [address] Mvmg, Gml Mobile Home Draw 2520 [facility] [place], [place] [address] 09/15/2024 7:05 AM EDT Laboratory Lab Mobile Phlebotomy [facility] 2520 [facility] [place], [place] [address] Mvmg, Gml Mobile Home Draw 2520 [facility] [place] [address] 10/12/2024 10:20 AM EST Office Visit Pulmonary Medicine, [facility] 132 [facility] [place]N [address] Jordan Stanley MD [address] [address] Scheduled Procedures Name Priority Associated Diagnoses Date/Ti [...] Additional history exists CKD PHOS USE SMARTSET 88117 02/25/202501/31, 01/28/2023, 07/26/2022, Additional history exists CKD HGB USE SMARTSET 59005 03/03/202503/03, 03/03/2024, 02/26/2024, Additional history exists Lipid [...] encounter Medical Devices Implanted Type Area Supervisor Data Processing Device Identifier Shelf Expiration Date Model / Serial / Lot Clareon Iol Aspheric Hydrophobic Acrylic Iol Implanted:Qty: 1 on 04/23/2023 by Cody Gonzalez DO at OR [facility] Lens Left: Eye 11/12/2025 CNA0T0 / [id number] 136 / Viatorr Tips Endoprosthesis 8-10 Mm X 8cm / 2cm Implanted:Qty: 1 on 10/07/2020 by Go Alvarado MD at [facility] Right: Abdomen 03/03/2023 [id number] / / [id number] Description:Viatorr TIPS End oprosthesis 8-10 mm x 8cm / 2cm, Manufactored by [employer] [place] [employer] Syr Pf 2ml Embospheres 100-300 - [id number] Implanted:Qty: 1 on 04/18/2021 by Kevin Lim DO at OR [facility] Left: Abdomen [employer] [id number] 11/25/2023 S220GH / / [id number] Lipiodol Injection - [id number] Implanted:Qty: 1 on 03/28/2022 at [facility] [employer] 03/01/2023 62162-22 -2 / / [id number] Syr Pf 2ml Embospheres 100-300 - [id number] Implanted:Qty: 1 on 03/28/2022 at [facility] [employer] [id number] 08/31/2024 S220GH / / [id number] -[id number] Clareon Iol Aspheric Hydrophobic Acrylic Iol Implanted:Qty: 1 on 04/02/2023 by Cody Gonzalez DO at OR [facility] Right: Eye JAZMIN 11/12/2025 CNA0T0 / [id number] / documented as of this encounter Advance Directives Documents on File Type Date Recorded Patient Program Manager Expl anation Advance Directives and Living Will 12/11/2022 ADVANCE DIRECTIVE / LIVING WILL LIVING WILL Power of Professor Of Vegetable Science 12/11/2022 POWER OF A TTORNEY Latest Code [...] the patient have Health Care Power of Professor Of Vegetable Science? No Care Teams Firestopper Installer Relationship Specialty Start Date End Date Francisco Cisse MD 200 [facility] [place] [address] PCP - General Internal Medicine 09/04/21 documented as of this encounter
--- OUTSIDE RECORDS SUMMARY | 2024-03-20 16:14 | External Medical Summary | Summary of Care ---
Author Name Unknown Organization [facility] Address [address] [place] [address] Phone [phone] Care Team Providers Care Blueprint Cutter Name Role Phone Francisco Cisse MD Primary Care Provider + Reason for Visit * Reason Onset Date Comments Advice 02/26/2024 Keyla Patient. Encounter Details Date Type Department Care Team (Late st Contact Info) Description 02/26/2024 Telephone Hematology/Oncology [facility] [place] [address] [place] [address] Services, Scheduling [address] [place] [address] Advice (Keyla Patient./) Allergies No known active allergiesdocumented as of [...] Additional Information Patient not taking.Reported on 02/26/2024 Hospital, Clinic, or Other Facility Administered Medication [...] vertebra 12/07/2021 01/18/2023 Liver mass, left lobe 04/18/2021 06/02/ 2021 Type 2 diabetes mellitus wit h stage [...] mRNA, LNP-s, No Pre serve, 2-Dose Series ([employer]) 03/08/2021,02/15/2021 HepA Inact/HepB Recomb>=18yrs old 12/04/2019,04/2019,05/20/2019 11/19/2019 [...] Telephone Encounter - Carlee Obregon OSA - 03/03/2024 9:11 AM EDT Printed and faxed with confirmation 03/03 * Telephone Encounter - Ximena Allen OSA - 03/02/2024 3:33 PM EDT We received a call from Priscilla at [facility]. 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 Please fax clearance form to [phone]. If you would like to speak with Priscilla about this further she can be reached at [phone]. Thank you! * Telephone Encounter - Pari Cobian LPN - 03/02/2024 1:49 PM EDT Left voicemail on Priscilla's voicemail, return phone number provided. * Telephone Encounter - Josephine Murphy RN - 03/02/2024 1:[address] Ramires's routing comment: "No Concern" * Telephone Encounter - Abdoul Oliva RN - 02/26/2024 1:[address] Ramires- any reserves to patient undergoing hyperbaric therapy for wounds? * Telephone Encounter - Tasha Morillo OSA - 02/26/2024 1:40 PM EDT Priscilla with [facility] for wound care Calling to discuss with Dr. Ramires as they are looking to do Hyperbaric oxygen therapy on patient and wanted to see if Dr. Ramires had any concerns or issues with such being done. Please advise Priscilla. documented in this encounter Plan of Treatment Upcoming Encounters Date Type Department Care Team (Late st Contact Info) Description 03/13/2024 2:00 PM EDT Office Visit Dermatology [place] [address] [place] [address] [address] Francisco Watson MD 200 [facility] [place] [address] 03/17/2024 7:05 AM EDT Laboratory Lab Mobile Phlebotomy [facility] 2520 [facility] [place] [address] Mvmg, Gml Mobile Home Draw 2520 [facility] [place] [address] 03/18/2024 11:00 AM EDT Office Visit Urology, [facility] [address] Frank Peraza MD [address] [place] [address] [place] [address] 03/24/2024 2:30 PM EDT Office Visit Hematology/Oncology [facility] 200 [facility] [place] [address] Ayaka Tatum CRNP 400 [facility] [place] [address] 03/30/2024 12:00 PM EDT Office Visit Family Practice [facility] 132 [facility] [address] Kristen Vences DO 132 [facility] [place] [address] 03/31/2024 7:05 AM EDT Laboratory Lab Mobile Phlebotomy [facility] 2520 [facility] [place] [address] Mvmg, Gml Mobile Home Draw 2520 [facility] [place] [address] 04/07/2024 10:00 AM EDT Office Visit Gastroenterology, [facility] 132 [facility] [place] [address] Lamar Tatum CRNP 132 [facility] [place] [address] 04/14/2024 7:05 AM EDT Laboratory Lab Mobile Phlebotomy [facility] 2520 [facility] [place] [address] Mvmg, Gml Mobile Home Draw [address]20 [place] [address] 04/28/2024 7:05 AM EDT Laboratory Lab Mobile Phlebotomy [facility] 2520 [place] [address] Mvmg, Gml Mobile Home Draw 2520 [facility] [place] [address] 05/12/2024 7:05 AM EDT Laboratory Lab Mobile Phlebotomy [facility] [address] [place] [facility] [place] [address] Mvmg, Gml Mobile Home Draw 2520 [place] [address] 05/26/2024 7:05 AM EDT Laboratory Lab Mobile Phlebotomy [facility] [address] [place] [facility] [place] [address] Mvmg, Gml Mobile Home Draw 2520 [place] [address] 06/09/2024 7:05 AM EDT Laboratory Lab Mobile Phlebotomy [facility] [address] [place] [facility] [place] [address] Mvmg, Gml Mobile Home Draw 2520 [place] [address] 06/23/2024 7:05 AM EDT Laboratory Lab Mobile Phlebotomy [facility] 2520 [facility] [place] [address] Mvmg, Gml Mobile Home Draw [address] [place] [facility] [place] [address] 07/07/2024 7:05 AM EDT Laboratory Lab Mobile Phlebotomy [facility] [address] [facility] [place] [address] Mvmg, Gml Mobile Home Draw 2520 [place] [address] 07/21/2024 7:05 AM EDT Laboratory Lab Mobile Phlebotomy M[facility] [address] [place] [address] Mvmg, Gml Mobile Home Draw [address] [place] [address] 08/04/2024 7:05 AM EDT Laboratory Lab Mobile Phlebotomy [facility] [address] [employer] [place], [place] [address] Mvmg, Gml Mobile Home Draw 2520 [facility] [place], [place] [address] 08/18/2024 7:05 AM EDT Laboratory Lab Mobile Phlebotomy [facility] 2520 [facility] [place] [address] Mvmg, Gml Mobile Home Draw 2520 [facility] [place] [address] 08/20/2024 10:15 AM EDT Office Visit Ophthalmology, [facility] 132 [facility] [address] Cody Gonzalez DO 21 [facility] [place] [address] 09/01/2024 7:05 AM EDT Laboratory Lab Mobile Phlebotomy [facility] [address] [employer] [place], [place] [address] Mvmg, Gml Mobile Home Draw 2520 [facility] [place] [address] 09/15/2024 7:05 AM EDT Laboratory Lab Mobile Phlebotomy [facility] 2520 [facility] [place], [place] [address] Mvmg, Gml Mobile Home Draw 2520 [facility] [place] [address] 10/12/2024 10:20 AM EST Office Visit Pulmonary Medicine, [facility] 132 [facility] [place] [address] Jordan Stanley MD [address] [address] Scheduled Procedures Name Priority Associated Diagnoses Date/Ti [...] Additional history exists CKD HGB USE SMARTSET 78408 02/25/202502/25, 02/26/2024, 02/18/2024, Additional history exists CKD PHOS USE SMARTSET 58171 02/25/202501/31, 01/28/2023, 07/26/2022, Additional history exists Lipid [...] this encounter Medical Devices Implanted Type Area Health Technical Writer Device Identifier Shelf Expiration Date Model / Serial / Lot Clareon Iol Aspheric Hydrophobic Acrylic Iol Implanted:Qty: 1 on 04/23/2023 by Cody Gonzalez DO at OR [facility] Lens Left: Eye 11/12/2025 CNA0T0 / [id number] 136 / Viatorr Tips Endoprosthesis 8-10 Mm X 8cm / 2cm Implanted:Qty: 1 on 10/07/2020 by Go Alvarado MD at [facility] Right: Abdomen 03/03/2023 [id number] / / [id number] Description:Viatorr TIPS End oprosthesis 8-10 mm x 8cm / 2cm, Manufactored by [employer] [employer] Syr Pf 2ml Embospheres 100-300 - [id number] Implanted:Qty: 1 on 04/18/2021 by Kevin Lim DO at OR [facility] Left: Abdomen [employer] [id number] 11/25/2023 S220GH / / [id number] Lipiodol Injection - [id number] Implanted:Qty: 1 on 03/28/2022 at [facility] [employer] 03/01/2023 11012-95 01-2 / / [id number] Syr Pf 2ml Embospheres 100-300 - [id number] Implanted:Qty: 1 on 03/28/2022 at [facility] [employer] [id number] 08/31/2024 S220GH / / [id number] -5 Clareon Iol Aspheric Hydrophobic Acrylic Iol Implanted:Qty: 1 on 04/02/2023 by Cody Gonzalez DO at OR [facility] Right: Eye JAZMIN 11/12/2025 CNA0T0 / [id number] / documented as of this encounter Advance Directives Documents on File Type Date Recorded Patient Seismic Plotter Expl anation Advance Directives and Living Will 12/11/2022 ADVANCE DIRECTIVE / LIVING WILL LIVING WILL Power of Cinetechnician 12/11/2022 POWER OF A TTORNEY Latest Code [...] the patient have Health Care Power of Cinetechnician? No Care Teams Blueprint Cutter Relationship Specialty Start Date End Date Francisco Cisse MD [address] [place] [address] PCP - General Internal Medicine 09/04/21 documented as of this encounter
--- OUTSIDE RECORDS SUMMARY | 2024-03-20 16:15 | External Medical Summary ---
Author Name Unknown Address Unknown Organization K01:LABORATORY [address] [address] Laboratory Report Ordering Provider Test Date Status CHELSEY BISWAS 03/03/2024 10:52:00 Final Observation Date Value Abnormality Reference (Units ) Status WBC, Total 03/03/2024 10:52:00 4.00 4.00-10.80 (K/uL) Final RBC 03/03/2024 10:52:00 2.19 4.50-5.25 (M/uL) Final Hemoglobin 03/03/2024 10:52:00 7.1 Below low normal 14.0-16.8 (g/dL) Final HCT 03/03/2024 10:52:00 22.7 Below low normal 40.0-48.4 (%) Final MCV 03/03/2024 10:52:00 103.7 82.0-99.5 (fL) Final MCH 03/03/2024 10:52:00 32.4 27.0-34.0 (pg) Final MCHC 03/03/2024 10:52:00 31.3 32.0-36.0 (g/dL) Final RDW 03/03/2024 10:52:00 22.2 11.5-15.5 (%) Final Platelets 03/03/2024 10:52:00 96 Below low normal 140-400 (K/uL) Final MPV 03/03/2024 10:52:00 12.6 6.6-11.1 (fL) Final Nucleated erythrocytes/100 leukocytes [Ratio] in Blood by Automated count 03/03/2024 10:52:00 1 Above high normal <=0 (/100 WBCs) Final Performing Location LABORATORY [facility] [place] - [address] [place], [place] [address]clemente. [facility] [address]
--- OUTSIDE RECORDS SUMMARY | 2024-03-20 16:15 | External Medical Summary | Summary of Care ---
Author Name Unknown Organization [facility] Address [address] [place] [address] Phone [phone] Care Team Providers Care Counterperson Name Role Phone Francisco Cisse MD Primary Care Provider + Reason for Visit * Reason Onset Date Comments Advice 02/26/2024 Keyla Patient. Encounter Details Date Type Department Care Team (Late st Contact Info) Description 02/26/2024 Telephone Hematology/Oncology [facility] [place] [address] [place] [address] Services, Scheduling [address] [place] [address] Advice (Keyla Patient./) Allergies No known active [...] mRNA, LNP-s, No Pre serve, 2-Dose Series (Funky Moves) 03/08/2021,02/15/2021 HepA Inact/HepB Recomb>=18yrs old 12/04/2019,04/2019,05/20/2019 11/19/2019 PPD 06/18/2017, 3,01/09/2012,06/2011 Pneumococcal Conjugate Vacc, 13 Valent (Prevnar) 05/01/2017 Pneumococcal Polysaccharide PPV23 (Pneumovax) 08/28/2022,10/25/2015,07/14/2012 Season Influenza, Quad, PF, Adjuvanted, 65+ Yrs, IM (FLUAD) 10/07/2020(Deferred: Patient Refused - pt says he already had his shot last month at [facility] and [facility] [...] Miscellaneous Notes * Telephone Encounter - Ximena Allen OSA - 03/02/2024 3:33 PM EDT We received a call from Priscilla at [facility]. 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 Please fax clearance form to [phone]. If you would like to speak with Priscilla about this further she can be reached at [phone]. Thank you! * Telephone Encounter - Pari [...] - 02/26/2024 1:40 PM EDT Priscilla with [facility] for wound care Calling to discuss with [...] 03/13/2024 2:00 PM EDT Office Visit Dermatology [facility] 200 [facility] [place] [address] Francisco Watson MD 200 [facility] [place] [address] 03/17/2024 7:05 AM EDT Laboratory Lab Mobile Phlebotomy [facility] [address] [place] [address] Mvmg, Gml [facility] Draw [address] [employer] [place] [address] 03/18/2024 11:00 AM EDT Office Visit Urology, [facility] [place] [facility] 132 [place] [address] Frank Peraza MD [facility] [address] [place] [address] 03/24/2024 2:30 PM EDT Office Visit Hematology/Oncology [facility] [place] 200 [facility] [place] [phone] Ayaka Tatum CRNP 400 [facility] [place] [address] 03/30/2024 12:00 PM EDT Office Visit Family Practice [facility] 132 [facility] [place] [address] Kristen Vences DO 132 [facility] [place] [address] 03/31/2024 7:05 AM EDT Laboratory Lab [facility] Phlebotomy [facility] [address] [employer] [place] [address] Mvmg, Gml [facility] Draw [address] [employer] [place] [address] 04/07/2024 10:00 AM EDT Office Visit Gastroenterology, [facility] 132 [facility] [place] [address] Lamar Tatum CRNP 132 [facility] [place] [address] 04/14/2024 7:05 AM EDT Laboratory Lab Mobile Phlebotomy [facility] [address] [employer] [place] [address] Mvmg, Gml [facility] Draw [address] [employer] [place] [address] 04/28/2024 7:05 AM EDT Laboratory Lab Mobile Phlebotomy [facility] [address] [employer] [place] [address] Mvmg, Gml Mobile Home Draw [address] [place] [address] 05/12/2024 7:05 AM EDT Laboratory Lab Mobile Phlebotomy [facility] [address] [facility] [place] [address] Mvmg, Gml Mobile Home Draw 25[address] [facility] [place] [address] 05/26/2024 7:05 AM EDT Laboratory Lab Mobile Phlebotomy [facility] [address] [place] [address] Mvmg, Gml Mobile Home Draw 25[address] [facility] [place] [address] 06/09/2024 7:05 AM EDT Laboratory Lab Mobile Phlebotomy [facility] [address] [facility] [place] [address] Mvmg, Gml Mobile Home Draw [address] [facility] [place] [address] 06/23/2024 7:05 AM EDT Laboratory Lab Mobile Phlebotomy [facility] [address] [place] [address] [facility] [place] [address] Mvmg, Gml Mobile Home Draw 2520 [place] [address] 07/07/2024 7:05 AM EDT Laboratory Lab Mobile Phlebotomy [facility] [address] [place] [address] Mvmg, Gml Mobile Home Draw [address] [place] [address] 07/21/2024 7:05 AM EDT Laboratory Lab Mobile Phlebotomy [facility] [address] [place] [address] [facility] [place] [address] Mvmg, Gml Mobile Home Draw [address]20 [place] [address] 08/04/2024 7:05 AM EDT Laboratory Lab Mobile Phlebotomy [facility] [address] [facility] [place] [address] Mvmg, Gml Mobile Home Draw [address] [facility] [place] [address] 08/18/2024 7:05 AM EDT Laboratory Lab Mobile Phlebotomy [facility] [address] [employer] [place] [address] Mvmg, Gml Mobile Home Draw [address] [place] [address] [address] 08/20/2024 10:15 AM EDT Office Visit Ophthalmology, [facility] [address] [place] [address] Cody Gonzalez, DO [address] [place] [address] 09/01/2024 7:05 AM EDT Laboratory Lab Mobile Phlebotomy [facility] [address] [employer] [place] [address] Mvmg, Gml Mobile Home Draw 2520 [facility] [place] [address] 09/15/2024 7:05 AM EDT Laboratory Lab Mobile Phlebotomy [facility] [address] [employer] [place] [address] Mvmg, Gml Mobile Home Draw [address] [place] [address] 10/12/2024 10:20 AM EST Office Visit Pulmonary Medicine, [address] [address] Jordan Stanley MD [address] [facility] [address] Scheduled Procedures Name Priority Associated Diagnoses Date/Ti [...] Additional history exists CKD HGB USE SMARTSET 14080 02/25/202502/25, 02/26/2024, 02/18/2024, Additional history exists CKD PHOS USE SMARTSET 07976 02/25/202501/31, 01/28/2023, 07/26/2022, Additional history exists Lipid [...] this encounter Medical Devices Implanted Type Area Explosives Truck Driver Device Identifier Shelf Expiration Date Model / Serial / Lot Clareon Iol Aspheric Hydrophobic Acrylic Iol Implanted:Qty: 1 on 04/23/2023 by Cody Gonzalez DO at OR [facility] Lens Left: Eye 11/12/2025 [id number] / [id number] / Viatorr Tips Endoprosthesis 8-10 Mm X 8cm / 2cm Implanted:Qty: 1 on 10/07/2020 by Go Alvarado MD at [facility] Right: Abdomen 03/03/2023 [id number] / / [id number] Description:Viatorr TIPS End oprosthesis 8-10 mm x 8cm / 2cm, Manufactored by [employer] Syr Pf 2ml Embospheres 100-300 - [id number] Implanted:Qty: 1 on 04/18/2021 by Kevin Lim DO at OR [facility] Left: Abdomen [employer] [id number] 11/25/2023 S220GH / / [id number] Lipiodol Injection - [id number] Implanted:Qty: 1 on 03/28/2022 at [facility] [employer] 03/01/2023 [id number] 01-2 / / [id number] Syr Pf 2ml Embospheres 100-300 - [id number] Implanted:Qty: 1 on 03/28/2022 at [facility] [employer] [id number] 08/31/2024 S220GH / / [id number] Clareon Iol Aspheric Hydrophobic Acrylic Iol Implanted:Qty: 1 on 04/02/2023 by Cody Gonzalez DO at OR [facility] Right: Eye JAZMIN 11/12/2025 CNA0T0 / [id number] / documented as of this encounter Advance Directives Documents on File Type Date Recorded Patient Prescription Clerk Expl anation Advance Directives and Living Will 12/11/2022 ADVANCE DIRECTIVE / LIVING WILL LIVING WILL Power of Fisher Eel 12/11/2022 POWER OF A TTORNEY Latest Code [...] the patient have Health Care Power of Fisher Eel? No Care Teams Counterperson Relationship Specialty Start Date End Date Francisco Cisse MD [address] [place] [address] PCP - General Internal Medicine 09/04/21 documented as of this encounter
--- OUTSIDE RECORDS SUMMARY | 2024-03-20 16:15 | External Medical Summary | Summary of Care ---
Author Name Unknown Organization [facility] Address [address] [facility] [place] [address] Phone [phone] Care Team Providers Care Grain Trimmer Name Role Phone Francisco Cisse MD Primary Care Provider + Reason for Visit * Reason Onset Date Comments abnormal imaging study 03/02/2024 Encounter Details Date Type Department Care Team (Late st Contact Info) Description 03/02/2024 Telephone Gastroenterology, [facility] [address] [place] [address] Lamar Tatum CRNP [address] [place] [address] abnormal imaging study Allergies No known active allergiesdocumented as of this encounter (statuses as of 03/02/2024) Medications Medication Sig Dispensed Refills Start Date [...] as of this encounter (statuses as of 03/02/2024) Active Problems Problem Noted Date Diagnosed Date [...] as of this encounter (statuses as of 03/02/2024) Resolved Problems Problem Noted Date Diagnosed Date [...] as of this encounter (statuses as of 03/02/2024) Immunizations Name Administration Dates Next Due COVID-19 mRNA, LNP-s, No Pre serve, 2-Dose Series (Pfizer) 03/08/2021,02/15/2021 HepA Inact/HepB Recomb>=18yrs old 12/04/2019,04/2019,05/20/2019 11/19/2019 PPD 06/18/2017, 3,01/09/2012,06/2011 Pneumococcal Conjugate Vacc, 13 Valent (Prevnar) 05/01/2017 Pneumococcal Polysaccharide PPV23 (Pneumovax) 08/28/2022,10/25/2015,07/14/2012 Season Influenza, Quad, PF, Adjuvanted, 65+ Yrs, IM (FLUAD) 10/07/2020(Deferred: Patient Refused - [facility] made aware) Seasonal Influenza [...] Telephone Encounter - Lamar Tatum CRNP - 03/02/2024 1:59 PM EDT 73 yr old w FOFANA cirrhosis w EV, ascites post TIPs, Hep enceph,HCC. I spoke w the pt by phone, informing him of enlarging, likely HCC lesion on MRI. His case was discussed in Tumor board prior to this MRI w recommendation for IR tx (at that time with imaging at [facility] showing enlarging lesion). Unfortunately, not able to get this done in [place]. Explained to the patient, that he will need to go to [facility], which he is okay with. Referral to [facility] was placed a month or so ago. I believe Jocelyne Sykes (liver sales marketing coordinator) had assisted by arranging a liver transplant appointment and IR appointment on the same day. Unfortunately the patient missed due to hospitalization locally. Jocelyne, are you able to reach out to the patient and arrange similar appointments again? Let me know if you need any orders, but I believe that IR referral is already in place and not sure that he needsanother liver transplant order. I told the pt to expect a call to schedule appts. Thank you for your help w this pt. documented in this encounter Plan of Treatment Upcoming Encounters Date Type Department Care Team (Late st Contact Info) Description 03/03/2024 7:05 AM EDT Laboratory Lab Mobile Phlebotomy [facility] [address] [employer] [place] [address] Mvmg, Gml Mobile Home Draw [address] [employer] [address] [place] [address] 03/13/2024 2:00 PM EDT Office Visit Dermatology [facility] 200 [facility] [place] [address] Francisco Watson MD 200 [facility] [place] [address] 03/17/2024 7:05 AM EDT Laboratory Lab Mobile Phlebotomy [facility] [address] [address] [place] [address] Mvmg, Gml Mobile Home Draw [address] [employer] [place] [address] 03/18/2024 11:00 AM EDT Office Visit Urology, [facility] 132 [facility] [place] [address] Frank Peraza MD [address] [place] [address] [place] [address] 03/24/2024 2:30 PM EDT Office Visit Hematology/Oncology [facility] [place] 200 [facility] [place] [id number] Ayaka Tatum CRNP 400 [facility] [place] [address] 03/30/2024 12:00 PM EDT Office Visit Family Practice [facility] 132 [facility] [place] [address] Kristen Vences DO [facility] [place] [address] 03/31/2024 7:05 AM EDT Laboratory Lab Mobile Phlebotomy [facility] [address] [facility] [place] [address] Mvmg, Gml Mobile Home Draw [address] [facility] [place] [address] 04/07/2024 10:00 AM EDT Office Visit Gastroenterology, [facility] 132 [facility] [place] [address] Lamar Tatum CRNP 132 [facility] [place] [address] 04/14/2024 7:05 AM EDT Laboratory Lab Mobile Phlebotomy [facility] [address] [place] [address] Mvmg, Gml Mobile Home Draw [address] [facility] [place] [address] 04/28/2024 7:05 AM EDT Laboratory Lab Mobile Phlebotomy [facility] [address] [place] [address] Mvmg, Gml Mobile Home Draw [address] [facility] [place] [address] 05/12/2024 7:05 AM EDT Laboratory Lab Mobile Phlebotomy [facility] [address] [place] [address] Mvmg, Gml Mobile Home Draw [address] [facility] [place] [place] [address] 05/26/2024 7:05 AM EDT Laboratory Lab Mobile Phlebotomy [facility] [address]20 [place] [address] Mvmg, Gml Mobile Home Draw [address] [place] [address] 06/09/2024 7:05 AM EDT Laboratory Lab Mobile Phlebotomy [facility] [address] [place] [address] Mvmg, Gml Mobile Home Draw 25[address] [place] [address] 06/23/2024 7:05 AM EDT Laboratory Lab Mobile Phlebotomy [facility] [address] [facility] [place] [place] [address] Mvmg, Gml Mobile Home Draw [address] [place] [address] 07/07/2024 7:05 AM EDT Laboratory Lab Mobile Phlebotomy [facility] [address] [facility] [place] [place] [address] Mvmg, Gml Mobile Home Draw 25[address] [place] [address] 07/21/2024 7:05 AM EDT Laboratory Lab Mobile Phlebotomy [facility] [address] [place] [address] Mvmg, Gml Mobile Home Draw 25[address] [place] [address] 08/04/2024 7:05 AM EDT Laboratory Lab Mobile Phlebotomy [facility] [address] [facility] [place] [place] [address] Mvmg, Gml Mobile Home Draw 25[address] [place] [address] 08/18/2024 7:05 AM EDT Laboratory Lab Mobile Phlebotomy [facility] [address] [facility] [place] [place] [address] Mvmg, Gml Mobile Home Draw [address] [employer] [place], [place] [address] 08/20/2024 10:15 AM EDT Office Visit Ophthalmology, [facility] 132 [facility] [place] [address] Cody Gonzalez, DO 21 [facility] [place] [address] 09/01/2024 7:05 AM EDT Laboratory Lab Mobile Phlebotomy [facility] [address] [employer] [place], [place] [address] Mvmg, Gml Mobile Home Draw [address] [employer] [place], [place] [address] 09/15/2024 7:05 AM EDT Laboratory Lab Mobile Phlebotomy [facility] [address] [address] [place] [address] Mvmg, Gml Mobile Home Draw [address] [employer] [place], [place] [address] 10/12/2024 10:20 AM EST Office Visit Pulmonary Medicine, [facility] [place] [address] Jordan Stanley MD [address] [place] [address] Scheduled Procedures Name Priority Associated Diagnoses Date/Ti [...] Additional history exists CKD HGB USE SMARTSET 28211 02/25/202502/25, 02/26/2024, 02/18/2024, Additional history exists CKD PHOS USE SMARTSET 44940 02/25/202501/31, 01/28/2023, 07/26/2022, Additional history exists Lipid [...] this encounter Medical Devices Implanted Type Area Blending Supervisor Device Identifier Shelf Expiration Date Model / Serial / Lot Clareon Iol Aspheric Hydrophobic Acrylic Iol Implanted:Qty: 1 on 04/23/2023 by Cody Gonzalez DO at OR [facility] Lens Left: Eye 11/12/2025 CNA0T0 / [id number] / Viatorr Tips Endoprosthesis 8-10 Mm X 8cm / 2cm Implanted:Qty: 1 on 10/07/2020 by Go Alvarado MD at [facility] Right: Abdomen 03/03/2023 [id number] / / [id number] Description:Viatorr TIPS End oprosthesis 8-10 mm x 8cm / 2cm, Manufactored by [employer] Syr Pf 2ml Embospheres 100-300 - [id number] Implanted:Qty: 1 on 04/18/2021 by Kevin Lim DO at OR [facility] Left: Abdomen [employer] [id number] 11/25/2023 S220GH / / [id number] Lipiodol Injection - [id number] Implanted:Qty: 1 on 03/28/2022 at [facility] [employer] 03/01/2023 [id number] 01-2 / / [id number] Syr Pf 2ml Embospheres 100-300 - [id number] Implanted:Qty: 1 on 03/28/2022 at [facility] [employer] [id number] 08/31/2024 S220GH / / [id number] -[id number] Clareon Iol Aspheric Hydrophobic Acrylic Iol Implanted:Qty: 1 on 04/02/2023 by Cody Gonzalez DO at OR [facility] Right: Eye JAZMIN 11/12/2025 CNA0T0 / [id number] / documented as of this encounter Advance Directives Documents on File Type Date Recorded Patient Box Maker Expl anation Advance Directives and Living Will 12/11/2022 ADVANCE DIRECTIVE / LIVING WILL LIVING WILL Power of Castings Trimmer 12/11/2022 POWER OF A TTORNEY Latest Code [...] the patient have Health Care Power of Castings Trimmer? No Care Teams Grain Trimmer Relationship Specialty Start Date End Date Francisco Cisse MD 200 [place] [address] PCP - General Internal Medicine 09/04/21 documented as of this encounter
--- OUTSIDE RECORDS SUMMARY | 2024-03-20 16:15 | External Medical Summary ---
Author Name Unknown Address Unknown Organization K01:LABORATORY [facility] - [address] [facility] [place]. [facility] [address] Laboratory Report Ordering Provider Test Date Status CHELSEY BISWAS 03/03/2024 10:52:00 Final Observation Date Value Abnormality Reference (Units ) Status Ovalocytes [Presence] in Blood by Light microscopy 03/03/2024 10:52:00 Moderate Abnormal None Seen Final Schistocytes 03/03/2024 10:52:00 Few Abnormal None Seen Final Dacrocytes [Presence] in Blood by Light microscopy 03/03/2024 10:52:00 Moderate Abnormal None Seen Final Performing Location LABORATORY C - [address] [place] [address]
--- OUTSIDE RECORDS SUMMARY | 2024-03-20 16:15 | External Medical Summary | Summary of Care ---
Author Name Unknown Organization [facility] Address [address] [place] [address] Phone [phone] Care Team Providers Care Keno Writer/Runner Name Role Phone Francisco Cisse MD Primary Care Provider + Reason for Visit * Reason Comments Follow Up Here return 3 mo. PC P referral restrictive lung disorder and radiation cystitis. * Evaluate & Treat - Unlimited Visits (Within 10 days (routine)) - Authorized Specialty Diagnoses / Procedures Referred By Contgirish t Referred To Contact Pulmonary Diseases / Pulmonary Diagnoses Restrictive lung disease Radiation cystitis Francisco Cisse MD [address] [place] [address] Referral ID Status Reason Start Date Expiration Date Visits Requested Visits Authorized [id number] Authorized Specialty Services Required 02/21/[phone] Encounter Details Date Type Department Care Team (Late st Contact Info) Description 02/27/2024 10:20 AM EDT Office Visit Pulmonary Medicine, [facility] [address] [facility] [place] [address] Jordan Stanley MD [address] [address] [id number] Type 2 diabetes mellitus with hemoglobin A1c goal of less than 7.0% (HCC)*; Dyslipidemia, goal LDL below 100; Seasonal allergic rhinitis, unspecified trigger; Restrictive ventilatory defect; Lung disease, restrictive; Pulmonary hypertension (HCC) Allergies No known active allergiesdocumented as of this encounter (statuses as of 02/27/2024) Medications Medication Sig Dispensed Refills Start Date [...] as of this encounter (statuses as of 02/27/2024) Active Problems Problem Noted Date Diagnosed Date [...] as of this encounter (statuses as of 02/27/2024) Resolved Problems Problem Noted Date Diagnosed Date [...] 02/09/2019 04/13/2021 Overview: Per CKD protocol #1 DALTON (nonalcoholic steatohepatitis) 09/03/2018 01/18/2023 NAFLD (nonalcoholic fatty [...] as of this encounter (statuses as of 02/27/2024) Immunizations Name Administration Dates Next Due COVID-19 mRNA, LNP-s, No Pre serve, 2-Dose Series (Buddytruk) 03/08/2021,02/15/2021 HepA Inact/HepB Recomb>=18yrs old 12/04/2019,04/2019,05/20/2019 11/19/2019 [...] Sign Reading Time Taken Comments Blood Pressure 122/62 02/27/2024 10:00 AM EDT Pulse 81 02/27/2024 10:00 AM EDT Temperature 36.7 C (98.1 F) 02/27/2024 10:00 AM E DT Respiratory Rate 18 02/27/2024 10:00 AM EDT Oxygen Saturation 99% 02/27/2024 10:02 AM EDT ra-amb Inhaled Oxygen Concentration - - Weight 83.9 kg (185 lb) 02/27/2024 10:00 AM EDT Height 177.8 cm (5' 10") 02/27/2024 10:00 AM EDT Body Mass Index 26.54 02/27/2024 10:00 AM EDT documented in this encounter Functional [...] as of this encounter Progress Notes * Jordan Stanley MD - 02/27/2024 10:07 AM EDT 02/27/2024 Pulmonary Medicine, [address] [address] [id number] Luis Hale 1950 male 73 year old Attending Physician Documentation: 73-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 Patient remains on waiting list for liver transplant evaluation. Describes fatigue, tiredness, shortness of breath on exertion. Denies cough, hemoptysis, high-gradefever. Physical examination significant for clinical pallor, basilar rales, otherwise clear lung brand, soft systolic murmur, 2+ lower extremity edema noted. Chest x-ray March 2023 shows well-preserved lung parenchyma without infiltrates, scarring or effusions. 6 minute walk test showed limited ambulation but no evidence of desaturation. Pulmonary function testing March 2023 shows FEV1 1.85 L, 60% of predicted. Overall ventilatory pattern consistent with severe restriction likely secondary to abdominal process. No evidence of I LD, effusion, lung scarring noted on chest x-ray. Chest x-ray 09/2022 showed well-preserved lung parenchyma, normal cardiac silhouette, no effusions.Recent 2D echocardiogram revealed PA pressure 45 mmHg, grade 2 diastolic dysfunction, normal right ventricle dimensions. Pulmonary hypertension likely secondary to DALTON cirrhosis/liver disease. Low likelihood for primarypulmonary trigger leading to pulmonary hypertension. Baseline pulmonary parenchymal and functional evaluation shows NO evidence of hypoxia/obstructive lung disease. Restriction noted on lung function likely secondary to abdominal process/recurrent ascites. No additional pulmonary medical therapies are being added at this point. Regarding HBO, patient is cleared from pulmonary standpoint to proceed with HBO therapy as recommended by Urology. Intended benefits outweigh inherent risks. Tentative scheduling for 3 hours of HBO per weekday for 12 weeks. Patient was advised to follow up with his GI team for ongoing management ofascites and liver disease status. Patient will be followed up in 6 months to reassess pulmonary status and discuss further managementplan. Assessment Patient is cleared for HBO therapy for radiation cystitis from pulmonary standpoint. 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 (Tenta Check-out note: tive scheduling for HBO 3hrs daily weekdays for 12 weeks) Secondary Restriction on Ventilation due to Live Dz/Ascites No Oxygen needed No BD RX needed No ILD Noted Pulm f/u in 6 months Jordan Stanley MD Subjective CC: Chief Complaint Patient presents with Follow Up Here return 3 mo. PCP referral restrictive lung disorder and radiation cystitis. HPI: Nursing Notes: Shaina Coffey LPN 02/27/24 1004 Signed Chief Complaint Patient presents with Follow Up Here return 3 mo. PCP referral restrictive lung disorder and radiation cystitis. MMRC Dyspnea Scale = 1 (I get short of breath when hurrying on level ground or walking up a slight hill) Objective Filed Vitals: 02/27/24 1000 02/27/24 1002 BP: 122/62 Pulse: 81 Resp: 18 Temp: 36.7 C (98.1 F) TempSrc: Tympanic SpO2: 99% 99% Weight: 83.9 kg (185 lb) Height: 1.778 m (5' 10") Exam: Const: No signs of acute distress present. Head/Face: Normal on inspection. Eyes: Conjunctivae clear. Pupils equal round and reactive to light. ENMT: Oropharynx: No erythema, exudate or masses. Posterior pharynx is normal. Neck: Supple and symmetric. Resp: Respiratory examination as outlined above CV: Rate is regular. Rhythm is regular. No heart murmur appreciated. Extremities: No edema of the lower limbs bilaterally. Skin: Skin is warm and dry. Neuro: Coordination normal. No involuntary movement. Psych: Patient's attitude is cooperative. Mood is normal. Affect is normal. Tests reviewed with the patient: XR THORACOLUMBAR SPINE MIN 2 VIEWS Result Date: 09/29/2023 IMPRESSION: 1. Compression fracture deformities again demonstrated T12 and L1. Findings stable. 2. No evidence of acute osseous injury. THIS DOCUMENT HAS BEEN ELECTRONICALLY SIGNED BY ANAM NELSON MD Available Radiologic data was reviewed by id in PACS. The images were shown to the patient and findings were discussed with the patient. HOME MEDICATIONS: Albumin Human 25 % Intravenous Solution Cephalexin 500 MG Oral Capsule (Keflex) Lantus SoloStar 100 UNIT/ML Subcutaneous Solution Pen-injector DULoxetine HCl 30 MG Oral Capsule Delayed Release Particles (Cymbalta) rifAXIMin 550 MG Oral Tablet (Xifaxan) Lantus 100 UNIT/ML Subcutaneous Solution Allopurinol 100 MG Oral Tablet (Zyloprim) Finasteride 5 MG Oral Tablet (Proscar) Pantoprazole Sodium 40 MG Oral Tablet Delayed Release (Protonix) Albumin Human 25 % Intravenous Solution oxygen IN GAS Furosemide 20 MG Oral Tablet (Lasix) FreeStyle Wang 2 Sensor Probiotic (Lactobacillus) Oral Capsule High Potency Iron 65 MG Oral Tablet Multivitamin Men 50+ Oral Tablet N-Acetyl Cysteine 600 MG Oral Tablet (Acetylcysteine (Nutrient)) Zinc 50 MG Oral Capsule Lactulose 10 GM Oral Packet (Kristalose) Mirtazapine 30 MG Oral Tablet (Remeron) Triamcinolone Acetonide 0.1 % External Cream (Aristocort) OneTouch Verio In Vitro Strip (Glucose Blood) Tylenol 325 MG Oral Capsule (Acetaminophen) amLODIPine Besylate 5 MG Oral Tablet (Norvasc) traMADol HCl 50 MG Oral Tablet (Ultram) Zoster Vac Recomb Adjuvanted 50 MCG/0.5ML Intramuscular Suspension Reconstituted (Shingrix) Metoclopramide HCl 5 MG Oral Tablet (Reglan) BD Pen Needle Elizabeth 2nd Gen 32G X 4 MM Albuterol Sulfate (Proventil) (2.5 MG/3ML) 0.083% inhalation solution 2.5 mg Albuterol Sulfate (Proventil) (5 MG/ML) 0.5% *conc* inhalation solution 2.5 mg ROS: No reported history of Hemoptysis, Hematemesis, Melena No reported history of Dysuria, Hematuria, Flank Pain No reported history of chronic headache, seizures No reported history of Fall or trauma . No reported history of recent change in weight or appetite. Past Medical History: Diagnosis Date Acquired thrombocytopenia [...] IOL performed by Cody Gonzalez DO at [facility] CATARACT SURGERY,COMPLEX Left 04/23/2023 LEFT EXTRACAPSULAR CATARACT REMOVAL COMPLEX WITH IOL performed by Cody Gonzalez DO at OR [facility] COLONOSCOPY 08/27/2005 [place]/hemorrhoids non internal COLONOSCOPY, DIAGNOSTIC (RECTUM) 04/16/2013 COLONOSCOPY FLEXIBLE PROXIMAL DIAGNOSTIC performed by Salvador Lopez MD at ENDOSCOPY [facility], adenomatous polyps repeat colonoscopy in 3 years COLONOSCOPY, DIAGNOSTIC (RECTUM) 05/03/2016 adenomatous polyps, diverticulosis, repeat 5 yrs/COLONOSCOPY FLEXIBLE PROXIMAL DIAGNOSTIC performedby Salvador Lopez MD at ENDOSCOPY [facility] COLONOSCOPY, DIAGNOSTIC (RECTUM) 07/19/2020 adenomatous & hyperplastic polyps, diverticulosis, repeat 3 yrs / [facility] COLONOSCOPY, DIAGNOSTIC (RECTUM) 11/30/2021 mild XRT proctitis, diverticulosis / COLONOSCOPY FLEXIBLE PROXIMAL DIAGNOSTIC performed by Barbara March DO at ENDOSCOPY [facility] COLONOSCOPY, DIAGNOSTIC (RECTUM) 02/01/2022 Mild XRT proctitis / COLONOSCOPY FLEXIBLE PROXIMAL DIAGNOSTIC performed by Barbara March DO at ENDOSCOPY [facility] COLONOSCOPY, DIAGNOSTIC (RECTUM) N/A 11/07/2022 poor prep/diverticulosis sigmoid colon/rectal angioectasias consistent with radiation proctopathy/Colonoscopy/[place] COLONOSCOPY, DIAGNOSTIC (RECTUM) N/A 08/09/2023 poor prep/moderate diverticulosis/hemorrhoids/biopsies show adenomatous and hyperplastic polyps/recall 1 years/Colonoscopy/[place] CT ABDOMEN W IV AND W ORAL CONTRAST 01/10/2010 CYSTOSCOPY/TREAT MED BLADDER TUMOR N/A 01/30/2024 CYSTOURETHROSCOPY WITH FULGURATION MEDIUM BLADDER TUMOR performed by Frank Peraza MD at OR [facility] EGD, FLEXIBLE, DIAGNOSTIC 07/22/2014 GE varices oozing blood, gastric polyp/ESOPHAGOGASTRODUODENOSCOPY (EGD), FLEXIBLE, TRANSORAL, DIAGNOSTIC performed by Juaquin Arrington MD at ENDOSCOPY [facility] EGD, FLEXIBLE, DIAGNOSTIC 07/23/2014 ESOPHAGOGASTRODUODENOSCOPY (EGD), FLEXIBLE, TRANSORAL, DIAGNOSTIC performed by Sophie Merino MD at [facility]COPY [facility] EGD, FLEXIBLE, DIAGNOSTIC 06/02/2019 eso & gastric varices, gastric polyps/ESOPHAGOGASTRODUODENOSCOPY (EGD), FLEXIBLE, TRANSORAL, DIAGNOSTIC performed by Salvador Lopez MD at ENDOSCOPY [facility] EGD, FLEXIBLE, DIAGNOSTIC 03/25/2020 portal hypertensive gastropathy, esophageal varices / INPT [facility] EGD, FLEXIBLE, DIAGNOSTIC 07/19/2020 eso varices, portal hypertensive gastropathy, repeat 3 mo / [facility] EGD, FLEXIBLE, DIAGNOSTIC 10/25/2020 Portal hypertensive gastropathy, eso varices / [facility] EGD, FLEXIBLE, DIAGNOSTIC 08/202222 Grade I esophageal varices / [facility] EGD, FLEXIBLE, DIAGNOSTIC N/A 09/11/2022 grade II esophageal varices/gastric antral vascular ectasia, treated with APC/repeat 3 months/EGD/NE EGD, FLEXIBLE, DIAGNOSTIC N/A 11/07/2022 grade III esophageal varices, banded/gastric antral vascular ectasia/repeat 2 months/EGD/NE EGD, FLEXIBLE, DIAGNOSTIC N/A 02/01/2023 [facility]< egd. / single G2 varix, banded and varices eradicated / no specimens collected / egd in 1 to 2 months / EGD, FLEXIBLE, DIAGNOSTIC N/A 08/09/2023 portal hypertensive gastropathy/repeat 1 year/EGD/NE EGD, FLEXIBLE, DIAGNOSTIC 05/22/2023 GAVE, repeat 4-6 wks / [facility] IR CANCER THERASPHERE EMBOLIZATION 03/28/2022 IR EMBOLIZATION Left 04/18/2021 IMAGING SUPERVISION & INTERPRETATION TRANSCATHETER THERAPY, EMBOLIZATION performed by Kevin Lim DO at OR [facility] IR EMBOLIZATION ARTERIAL NON HEMMORHAGE Left 02/21/2022 EMBOLIZATION ARTERIAL; SUPERVISION & INTERPRETATION performed by Kevin Lim DO at OR [facility] IR EMBOLIZATION ARTERIAL NON HEMMORHAGE Left 06/05/2022 EMBOLIZATION ARTERIAL; SUPERVISION & INTERPRETATION performed by Kevin Lim DO at OR [facility] IR VENOUS TIPS 10/07/2020 REMOVAL OF TONSILS, UNDER AGE 12 age 6-7 Tonsils Removal,<12 Y/O SIGMOIDOSCOPY, DIAGNOSTIC 04/12/2022 radiation proctitis, diverticulosis / [facility] TIPS, REVISION N/A 01/24/2021 REVISION TRANSVENOUS INTRAHEPATIC PORTOSYSTEMIC SHUNT performed by Kevin Lim DO at OR [facility] TIPS, REVISION Right 10/19/2022 REVISION TRANSVENOUS INTRAHEPATIC PORTOSYSTEMIC SHUNT performed by Howie Valdovinos MD at OR [facility] TIPS, REVISION Right 02/20/2023 REVISION TRANSVENOUS INTRAHEPATIC PORTOSYSTEMIC SHUNT performed by Kevin Lim DO at OR 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: [employer] Tobacco Use Smoking status: Never Smokeless tobacco: Never Vaping Use Vaping Use: Never used Substance and Sexual Activity Alcohol use: Not Currently Comment: 1971 - last use Drug use: No Sexual activity: Yes Partners: Female control/protection: Surgical Other Topics Concern Blood Transfusions No Caffeine Concern Yes Comment: occasional soda Special Diet No Seat Belt No 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 Narrative head 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 enjoys music, 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 2 cats Social Determinants of Health Food Insecurity: No Food Insecurity (08/14/2023) Hunger Vital Sign Worried About Running Out of Food in the Last Year: Never true Ran Out of Food in the Last Year: Never true Family History Problem Relation Age of Onset [...] Heart disease Brother Other (Other) Brother Agent [place] exposure Neurological Disorder Daughter epilepsy No Known Problems Daughter Cervical Cancer Daughter Uterine cancer Daughter Thyroid cancer Daughter Cancer Grandmother (Paternal) unkown, in 80s Diabetes Other Hypertension Other Heart Disorder Other Stroke Other Review of patient's allergies indicates: No Known Allergies documented in this encounter Nursing Notes * Shaina Coffey LPN - 02/27/2024 10:02 AM EDT Chief Complaint Patient presents with Follow Up Here return 3 mo. PCP referral restrictive lung disorder and radiation cystitis. MMRC Dyspnea Scale = 1 (I get short of breath when hurrying on level ground or walking up a slight hill) documented in this encounter Plan of Treatment Upcoming Encounters Date Type Department Care Team (Late st Contact Info) Description 03/03/2024 8:40 AM EDT Laboratory Lab [facility] [address] [place] [address] [facility], [facility] [address] [place] [address] 03/13/2024 2:00 PM EDT Office Visit Dermatology [facility] [address] [facility] [place] [address] Francisco Watson MD [address] [facility] [place] [address] 03/17/2024 8:40 AM EDT Laboratory Lab [facility] [address] [place] [address] [facility], [facility] [address] [place] [address] 03/18/2024 11:00 AM EDT Office Visit Urology, [facility] [address] [facility] [place] [address] Frank Peraza MD [address] [place] [address] [place] [address] 03/24/2024 2:30 PM EDT Office Visit Hematology/Oncology [facility] [address] [facility] [place] [id number] Ayaka Tatum CRNP [address] [place] [address] [place] [address] 03/30/2024 12:00 PM EDT Office Visit Family Practice [facility] [address] [facility] [place] [address] Kristen Vences DO [address] [place] [address] 03/31/2024 8:40 AM EDT Laboratory Lab [facility] [address] [place] [address] [facility] [address] [place] [address] 04/07/2024 10:00 AM EDT Office Visit Gastroenterology, [facility] [address] [place] [address] Lamar Tatum CRNP [address] [place] [address] 04/14/2024 8:40 AM EDT Laboratory Lab [facility] [address] [place] [address] [facility] [address] [place] [address] 04/28/2024 8:40 AM EDT Laboratory Lab [facility] [address] [place] [address] [facility] [address] [place] [address] 05/12/2024 8:40 AM EDT Laboratory Lab [facility] C [address] [place] [address] [facility] [address] [place] [address] 05/26/2024 8:40 AM EDT Laboratory Lab [facility] [address] [place] [address] [facility] [address] [place] [address] 06/09/2024 8:40 AM EDT Laboratory [facility] [address] [place] [address] [facility] [address] [place] [address] 06/23/2024 8:40 AM EDT Laboratory [facility] [address] [place] [address] [facility] [address] [place] [address] 07/07/2024 8:40 AM EDT Laboratory [facility] [address] [place] [address] [facility] [address] [place] [address] 07/21/2024 8:40 AM EDT Laboratory [facility] [address] [place] [address] [facility] [address] [place] [address] 08/04/2024 8:40 AM EDT Laboratory [facility] [address] [place] [address] [facility] [address] [place] [address] 08/18/2024 8:40 AM EDT Laboratory [facility] [address] [place] [address] [facility] [address] [place] [address] 08/20/2024 10:15 AM EDT Office Visit Ophthalmology, [facility] [address] [place] [address] Cody Gonzalez, DO [address] [facility] [place] [address] 09/01/2024 8:40 AM EDT Laboratory Lab [facility] [address] [place] [address] [facility], [facility] [address] [place] [address] 09/15/2024 8:40 AM EDT Laboratory Lab [facility] [address] [place] [address] [facility], [facility] [address], [place] [address] 10/12/2024 10:20 AM EST Office Visit Pulmonary Medicine, [facility] [address] [facility] [place] [address] Jordan Stanley MD [address] [place] [facility] [place] [address] Scheduled Procedures Name Priority Associated Diagnoses Date/Ti me COLONOSCOPY FLEXIBLE PROXIMAL DIAGNOSTIC Recall History of colonic polyps Portal hypertensive gastropathy (HCC) ESOPHAGOGASTRODUODENOSCOPY ( EGD), FLEXIBLE, TRANSORAL, DIAGNOSTIC Recall History of colonic polyps Portal hypertensive gastropathy (HCC) Scheduled Referrals Name Type Priority Associated Diagnoses Orde r Schedule PULMONARY REFERRAL OP Referral Within 10 days (routine) Restrictive lung disease Radiation cystitis Ordered: 02/21/2024 Health Maintenance Due Date Last Done Comments Depression Screening 05/03/2022 05/03/2021 Zoster Vaccines (2 of 2) 12/13/2023 10/18/2023 Diabetic Eye Exam 01/17/2024 01/17/2023, , 01/17/2023, Additional history exists Diabetic Foot Exam 03/06/2024 03/06/2023, 0 01/03/2022, 03/02/2021, Additional history exists HbA1c 05/28/2024 11/27/2023, 0606/2023, 01/28/2023, Additional history exists Albumin/Creatinine Ratio 07/12/2024 023, 10/01/2022, 09/11/2021, Additional history exists COLONOSCOPY-ANNUAL AGES 18-100 08/09/2024 08/09/2023, 11/07/2022, 11/07/2022, Additional history exists GFR 08/28/2024 02/26/2024, 01/30, 01/24/2024, Additional history exists CKD HGB USE SMARTSET 17019 02/25/202502/25, 02/26/2024, 02/18/2024, Additional history exists CKD PHOS USE SMARTSET 17337 02/25/202501/31, 01/28/2023, 07/26/2022, Additional history exists Lipid [...] this encounter Medical Devices Implanted Type Area News Production Assistant Device Identifier Shelf Expiration Date Model / Serial / Lot Clareon Iol Aspheric Hydrophobic Acrylic Iol Implanted:Qty: 1 on 04/23/2023 by Cody Gonzalez DO at OR [facility] Lens Left: Eye 11/12/2025 [id number] / [id number] / Viatorr Tips Endoprosthesis 8-10 Mm X 8cm / 2cm Implanted:Qty: 1 on 10/07/2020 by Go Alvarado MD at [facility] Right: Abdomen 03/03/2023 [id number] / / [id number] Description:Viatorr TIPS End oprosthesis 8-10 mm x 8cm / 2cm, Manufactored by [employer] Syr Pf 2ml Embospheres 100-300 - [id number] Implanted:Qty: 1 on 04/18/2021 by Kevin Lim DO at OR [facility] Left: Abdomen [employer] [id number] 11/25/2023 [id number] / / [id number] Lipiodol Injection - [id number] Implanted:Qty: 1 on 03/28/2022 at [facility] [employer] 03/01/2023 [id number] 01-2 / / [id number] Syr Pf 2ml Embospheres 100-300 - [id number] Implanted:Qty: 1 on 03/28/2022 at [facility] [employer] [id number] 08/31/2024 [id number] / / [id number] -[id number] Clareon Iol Aspheric Hydrophobic Acrylic Iol Implanted:Qty: 1 on 04/02/2023 by Cody Gonzalez DO at OR [facility] Right: Eye [employer] 11/12/2025 [id number] / [id number] / documented as of this encounter Visit Diagnoses Diagnosis Type 2 diabetes mellitus with hemoglobin A1c goal of less than 7.0% (HCC)- Primary Dyslipidemia, goal LDL below 100 Other and unspecified hyperlipidemia Seasonal allergic rhinitis, unspecified trigger Restrictive ventilatory defect Nonspecific abnormal results of pulmonary system function study Lung disease, restrictive Other diseases of lung, not elsewhere classified Pulmonary hypertension (HCC) Other chronic pulmonary heart diseases documented in this encounter Advance Directives Documents on File Type Date Recorded 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 No Care Teams Keno Writer/Runner Relationship Specialty Start Date End Date Francisco Cisse MD [address] [place] [address] PCP - General Internal Medicine 09/04/21 documented as of this encounter
--- OUTSIDE RECORDS SUMMARY | 2024-03-20 16:15 | External Medical Summary | Summary of Care ---
Author Name Unknown Organization [facility] Address [address] [place] [address] Phone [phone] Care Team Providers Care Sausage Maker Name Role Phone Francisco Cisse MD Primary Care Provider + Reason for Visit * Reason Onset Date Comments Test Results 02/26/2024 Unexpected or In determinate Result Encounter Details Date Type Department Care Team (Late st Contact Info) Description 02/26/2024 Telephone Rad[address] 132 [facility] [place] [address] Demian Mancini MD [address] [place] [address] Test Results (Unexpected or Indeterminate ... Allergies No known active allergiesdocumented as of this encounter (statuses as of 02/26/2024) Medications Medication Sig Dispensed Refills Start Date [...] as of this encounter (statuses as of 02/26/2024) Active Problems Problem Noted Date Diagnosed Date [...] as of this encounter (statuses as of 02/26/2024) Resolved Problems Problem Noted Date Diagnosed Date [...] as of this encounter (statuses as of 02/26/2024) Immunizations Name Administration Dates Next Due COVID-19 mRNA, LNP-s, No Pre serve, 2-Dose Series ([place]) 03/08/2021,02/15/2021 HepA Inact/HepB Recomb>=18yrs old 12/04/2019,04/2019,05/20/2019 11/19/2019 PPD 06/18/2017, 3,01/09/2012,06/2011 Pneumococcal Conjugate Vacc, 13 Valent (Prevnar) 05/01/2017 Pneumococcal Polysaccharide PPV23 (Pneumovax) 08/28/2022,10/25/2015,07/14/2012 Season Influenza, Quad, PF, Adjuvanted, 65+ Yrs, IM (FLUAD) 10/07/2020(Deferred: Patient Refused - pt says he already had his shot last month at [facility] Handy Lyons and Mckinley Cobian made [...] the money to buy more. Never true 09/13/20 23 Within the past 12 months, t [...] Miscellaneous Notes * Telephone Encounter - Ayaka Garcia, ESTELLE - 02/26/2024 12:22 PM EDT Hello- The radiologist discovered an unexpected or indeterminate finding on Luis Hale ([id number]) and asks that you review the following report. 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 Nondiagnostic evaluation at the hepatic dome and specifically the segment 2 treatment cavity. However on review of prior imaging studies, there has been overall increase in size of the segment 2 lesion/treatment cavity as described with mild restricted diffusion, suggesting viable tumor; [id number]. Moderate gastric wall thickening may reflect gastritis versus portal gastropathy. Correlate clinically. A 1.5 cm complex cystic left renal lesion as described, suspicious for cystic renal cell carcinoma,grossly unchanged. Study Type:MRI LIVER W WO CONTRAST Date of Study: 02/24/2024 Please respond to this encounter to acknowledge receipt of this message and take responsibility to ensure this report is reviewed. Thank you, ESTELLE Friedman Client Service Rep [facility] [place] documented in this encounter Plan of Treatment Upcoming Encounters Date Type Department Care Team (Late st Contact Info) Description 02/27/2024 10:20 AM EDT Office Visit Pulmonary Medicine, [facility] [address] [place] [address] Jordan Stanley MD [address] [facility] [place] [address] 03/03/2024 8:40 AM EDT Laboratory Lab Mobile Phlebotomy [place] [address] [place] [address] [facility] Mobile Home Draw [address] [place] [address] 03/13/2024 2:00 PM EDT Office Visit Dermatology [facility] 200 [place] [address] Francisco Watson MD 200 [place] [address] 03/17/2024 8:40 AM EDT Laboratory Lab Mobile Phlebotomy [place] [address] [place] [address] [facility], [facility] Mobile Home Draw [address] [place] [address] 03/18/2024 11:00 AM EDT Office Visit Urology, [facility] 132 [place] [address] Frank Peraza MD 27 [facility] [address] [place] [address] 03/24/2024 2:30 PM EDT Office Visit Hematology/Oncology [facility] 200 [place] [address] Ayaka Tatum CRNP 400 [facility] [place] [address] 03/30/2024 12:00 PM EDT Office Visit Family Practice [facility] [address] [place] [address] Kristen Vences DO [address] [place] [address] 03/31/2024 8:40 AM EDT Laboratory Lab Mobile Phlebotomy [place] [address] [place] [address] [facility], l Mobile Home Draw [address] [place] [address] 04/07/2024 10:00 AM EDT Office Visit Gastroenterology, [facility] [address] [place] [address] Lamar Tatum CRNP [address] [place] [address] 04/14/2024 8:40 AM EDT Laboratory Lab Mobile Phlebotomy [place] [address] [place] [address] [facility] Mobile Home Draw [address] [place] [address] 04/28/2024 8:40 AM EDT Laboratory Lab Mobile Phlebotomy [place] [address] [place] [address] [facility] Mobile Home Draw [address] [place] [address] 05/12/2024 8:40 AM EDT Laboratory Lab Mobile Phlebotomy [place] [address] [place] [address] [facility], [facility] Mobile Home Draw [address] [place] [address] 05/26/2024 8:40 AM EDT Laboratory Lab Mobile Phlebotomy [facility] [address] [place] [address] [facility] Mobile Home Draw [address] [place] [address] 06/09/2024 8:40 AM EDT Laboratory Lab Mobile Phlebotomy [facility] [address] [place] [address] [facility] Mobile Home Draw [address] [place] [address] 06/23/2024 8:40 AM EDT Laboratory Lab Mobile Phlebotomy [facility] [address] [place] [address] [facility] Mobile Home Draw [address] [place] [address] 07/07/2024 8:40 AM EDT Laboratory Lab Mobile Phlebotomy [facility] [address] [place] [address] [facility] Mobile Home Draw [address] [place] [address] 07/21/2024 8:40 AM EDT Laboratory Lab Mobile Phlebotomy [facility] [address] [place] [address] [facility] Mobile Home Draw [address] [place] [address] 08/04/2024 8:40 AM EDT Laboratory Lab Mobile Phlebot[facility] [address] [place] [address] [facility] Mobile Home Draw [address] [place] [address] 08/18/2024 8:40 AM EDT Laboratory Lab Mobile Phlebotomy [place] [address] [place] [address] [facility], [facility] Mobile Home Draw [address] [place] [address] 08/20/2024 10:15 AM EDT Office Visit Ophthalmology, [facility] [address] [place] [address] Cody Gonzalez, DO [address] [place] [address] 09/01/2024 8:40 AM EDT Laboratory Lab Mobile Phlebotomy [place] [address] [place] [address] [facility], [facility] Mobile Home Draw [address] [place] [address] 09/15/2024 8:40 AM EDT Laboratory Lab Mobile Phlebotomy [place] [address] [place] [address] [facility], [facility] Mobile Home Draw [address] [place] [address] Scheduled Procedures Name Priority Associated Diagnoses Date/Ti [...] Additional history exists CKD PHOS USE SMARTSET 59979 01/28/202401/03, 07/26/2022, 12/05/2021, Additional history exists Diabetic Foot Exam 03/06/2024 03/06/2023, 0 01/03/2022, 03/02/2021, Additional history exists HbA1c 05/28/2024 11/27/2023, 05/03, 01/28/2023, Additional history exists Albumin/Creatinine Ratio 07/12/2024 023, 10/01/2022, 09/11/2021, Additional history exists COLONOSCOPY-ANNUAL AGES 18-100 08/09/2024 08/09/2023, 11/07/2022, 11/07/2022, Additional history exists GFR 08/15/2024 02/13/2024, 01/03, 01/17/2024, Additional history exists CKD HGB USE SMARTSET 63813 02/25/202502/25, 02/26/2024, 02/18/2024, Additional history exists Lipid Panel 01/28/2028 01/28/2023, [...] this encounter Medical Devices Implanted Type Area Technical Support Professional Device Identifier Shelf Expiration Date Model / Serial / Lot Clareon Iol Aspheric Hydrophobic Acrylic Iol Implanted:Qty: 1 on 04/23/2023 by Cody Gonzalez DO at OR [facility] Lens Left: Eye 11/12/2025 CNA0T0 / [id number] / Viatorr Tips Endoprosthesis 8-10 Mm X 8cm / 2cm Implanted:Qty: 1 on 10/07/2020 by Go Alvarado MD at [facility] Right: Abdomen 03/03/2023 [id number] / / [id number] Description:Viatorr TIPS End oprosthesis 8-10 mm x 8cm / 2cm, Manufactored by [employer] Syr Pf 2ml Embospheres 100-300 - [id number] Implanted:Qty: 1 on 04/18/2021 by Kevin Lim DO at OR [facility] Left: Abdomen [employer] [id number] 11/25/2023 S220GH / / [id number] Lipiodol Injection - [id number] Implanted:Qty: 1 on 03/28/2022 at [facility] [employer] 03/01/2023 [id number] 01-2 / / [id number] Syr Pf 2ml Embospheres 100-300 - [id number] Implanted:Qty: 1 on 03/28/2022 at [facility] [employer] [id number] 08/31/2024 S220GH / / [id number] -[id number] Clareon Iol Aspheric Hydrophobic Acrylic Iol Implanted:Qty: 1 on 04/02/2023 by Cody Gonzalez DO at OR 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 No Care Teams Sausage Maker Relationship Specialty Start Date End Date Francisco Cisse MD [address] [place] [address] PCP - General Internal Medicine 09/04/21 documented as of this encounter
--- OUTSIDE RECORDS SUMMARY | 2024-03-20 16:15 | External Medical Summary ---
Author Name Unknown Address Unknown Organization K01:[facility] [place] [address] [facility] [address] Laboratory Report Ordering Provider Test Date Status CHELSEY BISWAS 03/03/2024 10:52:00 Final Observation Date Value Abnormality Reference (Units ) Status SYNC LEUKOCYTES IN BLOOD BY AUTOMATED COUNT 03/03/2024 10:52:00 4.00 4.00-10.80 (K/uL) Final Segs 03/03/2024 10:52:00 73.6 40.0-75.0 (%) Final Lymphs % 03/03/2024 10:52:00 14.8 Below low normal 18.0-42.0 (%) Final Monos 03/03/2024 10:52:00 5.3 1.0-11.0 (%) Final Eosinophils 03/03/2024 10:52:00 4.8 0.0-6.0 (%) Final Basos 03/03/2024 10:52:00 0.5 0.0-2.0 (%) Final Immature Granulocyte, Percent 03/03/2024 10:52:00 1.0 0.0-2.0 (%) Final Absolute Segs 03/03/2024 10:52:00 2.95 1.80-7.70 (K/uL) Final Lymphs, absolute 03/03/2024 10:52:00 0.59 Below low normal 1.00-4.80 (K/ul) Final Monos, Abs 03/03/2024 10:52:00 0.21 0.00-1.10 (K/uL) Final Eos, Abs 03/03/2024 10:52:00 0.19 0.00-0.70 (K/uL) Final Basos, Abs 03/03/2024 10:52:00 0.02 0.00-0.20 (K/uL) Final Immature Granulocytes, Number 03/03/2024 10:52:00 0.04 0.00-0.20 (K/uL) Final Performing Location [facility] [address] [facility] [address]
--- OUTSIDE RECORDS SUMMARY | 2024-03-20 16:15 | External Medical Summary | Summary of Care ---
Author Name Unknown Organization [facility] Address [address] [facility] [address] Phone [phone] Care Team Providers Care Supervisor Machine Workers Name Role Phone Francisco Cisse MD Primary Care Provider + Reason for Visit * Reason Onset Date Comments Test Results 02/28/2024 Encounter Details Date Type Department Care Team (Late st Contact Info) Description 02/28/2024 Telephone General Internal Medicine [facility] [address] [place] [address] Francisco Cisse MD [address] [place] [address] Test Results Allergies No known active allergiesdocumented as of this encounter (statuses as of 02/28/2024) Medications Medication Sig Dispensed Refills Start Date End Date Status Tylenol 325 MG Oral Capsule (Acetaminophen) Take 650 mg by mouth every 8 hours as needed for Pain (fever). 0 Active OneTouch Verio In Vitro Strip (Glucose Blood)Indications:Ty pe 2 diabetes mellitus with hemoglobin A1c goal of less than 7.0% ([facility]) Use to test blood sugars [...] as of this encounter (statuses as of 02/28/2024) Active Problems Problem Noted Date Diagnosed Date [...] as of this encounter (statuses as of 02/28/2024) Resolved Problems Problem Noted Date Diagnosed Date [...] as of this encounter (statuses as of 02/28/2024) Immunizations Name Administration Dates Next Due COVID-19 mRNA, LNP-s, No Pre serve, 2-Dose Series ([employer])) 03/08/2021,02/15/2021 HepA Inact/HepB Recomb>=18yrs old 12/04/2019,04/2019,05/20/2019 11/19/2019 PPD 06/18/2017, 3,01/09/2012,06/2011 Pneumococcal Conjugate Vacc, 13 Valent (Prevnar) 05/01/2017 Pneumococcal Polysaccharide PPV23 (Pneumovax) 08/28/2022,10/25/2015,07/14/2012 Season Influenza, Quad, PF, Adjuvanted, 65+ Yrs, IM (FLUAD) 10/07/2020(Deferred: Patient Refused - pt says [place] [facility] [employer] Lyons and Mckinley Cobian made aware) [...] encounter Miscellaneous Notes * Telephone Encounter - Batool Tatum MED ASSIST - 02/28/2024 8:50 AM EDT Patient aware and verbalized understanding * Telephone Encounter - Batool Tatum MED ASSIST - 02/28/2024 8:48 AM EDT ----- Message from Francisco Cisse MD sent at 02/28/2024 8:42 AM EDT ----- 1. Lft stable (high, but stable) 2. Gfr is good and sugar ok 3. Hgb is at 8.2, continue weekly draws with heme to follow this documented in this encounter Plan of Treatment Upcoming Encounters Date Type Department Care Team (Late st Contact Info) Description 03/03/2024 8:40 AM EDT Laboratory Lab Mobile Phlebotomy [facility] [address] [place] [address] [facility] Mobile Home Draw [address] [place] [address] 03/13/2024 2:00 PM EDT Office Visit Dermatology [facility] [address] [place] [address] Francisco Watson MD [address] [place] [address] 03/17/2024 8:40 AM EDT Laboratory Lab Mobile Phlebotomy [facility] [address] [place] [address] [facility] Mobile Home Draw [address] [place] [address] 03/18/2024 11:00 AM EDT Office Visit Urology, [facility] 132 [facility] [place] [address] Frank Peraza MD [address] [place] [address] [place] [address] 03/24/2024 2:30 PM EDT Office Visit Hematology/Oncology [facility] [address] [place] [address] Ayaka Tatum CRNP [address] [place] [address] [place] [address] 03/30/2024 12:00 PM EDT Office Visit Family Practice [facility] 132 [place] [address] Kristen Vences DO [address] [place] [address] 03/31/2024 8:40 AM EDT Laboratory Lab Mobile Phlebotomy [facility] [address] [place] [address] [facility] Mobile Home Draw [address] [place] [address] 04/07/2024 10:00 AM EDT Office Visit Gastroenterology, [facility] 132 [place] [address] Lamar Tatum CRNP [address] [place] [address] 04/14/2024 8:40 AM EDT Laboratory Lab Mobile Phlebotomy [facility] [address] [place] [address] [facility], [facility] Mobile Home Draw [address] [place] [address] 04/28/2024 8:40 AM EDT Laboratory Lab Mobile Phlebotomy [facility] [address] [place] [address] [facility] Mobile Home Draw [address] [place] [address] 05/12/2024 8:40 AM EDT Laboratory Lab Mobile Phlebotomy [facility] [address] [place] [address] [facility] Mobile Home Draw [address] [place] [address] 05/26/2024 8:40 AM EDT Laboratory Lab Mobile Phle[facility] [address] [place] [address] [facility] Mobile Home Draw [address] [place] [address] 06/09/2024 8:40 AM EDT Laboratory Lab Mobile Phle[facility] [address] [place] [address] [facility] Mobile Home Draw [address] [place] [address] 06/23/2024 8:40 AM EDT Laboratory Lab Mobile Phle[facility] [address] [place] [address] [facility] Mobile Home Draw [address] [place] [address] 07/07/2024 8:40 AM EDT Laboratory Lab Mobile Phle[facility] [address] [place] [address] [facility] Mobile Home Draw [address] [place] [address] 07/21/2024 8:40 AM EDT Laboratory Lab Mobile Phle[facility] [address] [place] [address] [facility] Mobile Home Draw [address] [place] [address] 08/04/2024 8:40 AM EDT Laboratory Lab Mobile Phle[facility] [address] [place] [address] [facility] Mobile Home Draw [address] [place] [address] 08/18/2024 8:40 AM EDT Laboratory Lab Mobile Phle[facility] [address] [place] [address] [facility] Mobile Home Draw [address] [place] [address] 08/20/2024 10:15 AM EDT Office Visit Ophthalmology, [facility] [address] [place] [address] Cody Gonzalez DO [facility] [place] [address] 09/01/2024 8:40 AM EDT Laboratory Lab Mobile Phlebotomy [facility] [address] [place] [address] [facility], [facility] Mobile Home Draw [address] [place] [address] 09/15/2024 8:40 AM EDT Laboratory Lab Mobile Phlebotomy [facility] [address] [place], [place] [address] [facility] Mobile Home Draw [address] [place], [place] [address] 10/12/2024 10:20 AM EST Office Visit Pulmonary Medicine, [facility] 132 [place] [address] Jordan Stanley MD [address] [address] Scheduled Procedures Name Priority Associated Diagnoses Date/Ti [...] Additional history exists CKD HGB USE SMARTSET 70453 02/25/202502/25, 02/26/2024, 02/18/2024, Additional history exists CKD PHOS USE SMARTSET 10748 02/25/202501/31, 01/28/2023, 07/26/2022, Additional history exists Lipid [...] this encounter Medical Devices Implanted Type Area Penciller Device Identifier Shelf Expiration Date Model / Serial / Lot Clareon Iol Aspheric Hydrophobic Acrylic Iol Implanted:Qty: 1 on 04/23/2023 by Cody Gonzalez DO at OR [facility] Lens Left: Eye 11/12/2025 CNA0T0 / [id number] / Viatorr Tips Endoprosthesis 8-10 Mm X 8cm / 2cm Implanted:Qty: 1 on 10/07/2020 by Go Avlarado MD at [facility] Right: Abdomen 03/03/2023 [id number] / / [id number] Description:Viatorr TIPS End oprosthesis 8-10 mm x 8cm / 2cm, Manufactored by [employer] Syr Pf 2ml Embospheres 100-300 - [id number] Implanted:Qty: 1 on 04/18/2021 by Kevin Lim DO at OR [facility] Left: Abdomen Mobile [employer] [id number] 11/25/2023 S220GH / / [id number] Lipiodol Injection - [id number] Implanted:Qty: 1 on 03/28/2022 at [facility] [employer] 03/01/2023 [id number] 01-2 / / [id number] Syr Pf 2ml Embospheres 100-300 - [id number] Implanted:Qty: 1 on 03/28/2022 at [facility] [employer] [id number] 08/31/2024 S220GH / / [id number] -5 Clareon Iol Aspheric Hydrophobic Acrylic Iol Implanted:Qty: 1 on 04/02/2023 by Cody Gonzalez DO at OR 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 No Care Teams Supervisor Machine Workers Relationship Specialty Start Date End Date Francisco Cisse MD [address] [place] [address] PCP - General Internal Medicine 09/04/21 documented as of this encounter
--- OUTSIDE RECORDS SUMMARY | 2024-03-20 16:15 | External Medical Summary | Summary of Care ---
Author Name Unknown Organization [facility] Address [address] [place] [address] Phone [phone] Care Team Providers Care Smelter Charger Name Role Phone Francisco Cisse MD Primary Care Provider + Reason for Visit * Reason Onset Date Comments Advice 02/26/2024 Keyla Patient. Encounter Details Date Type Department Care Team (Late st Contact Info) Description 02/26/2024 Telephone Hematology/Oncology [facility] [place] [address] [place] [address] Services, Scheduling [address] [place] [address] Advice (Keyla Patient./) Allergies No known active [...] mRNA, LNP-s, No Pre serve, 2-Dose Series (Tapactive) 03/08/2021,02/15/2021 HepA Inact/HepB Recomb>=18yrs old 12/04/2019,04/2019,05/20/2019 11/19/2019 PPD 06/18/2017, 3,01/09/2012,06/2011 Pneumococcal Conjugate Vacc, 13 Valent (Prevnar) 05/01/2017 Pneumococcal Polysaccharide PPV23 (Pneumovax) 08/28/2022,10/25/2015,07/14/2012 Season Influenza, Quad, PF, Adjuvanted, 65+ Yrs, IM (FLUAD) 10/07/2020(Deferred: Patient Refused - pt says he already had his shot last month at [facility] Handy Lyons and Mckinley Cobian made aware) [...] encounter Miscellaneous Notes * Telephone Encounter - Pari Cobian LPN - 03/02/2024 1:49 PM EDT Left voicemail on [employer]'s voicemail, return phone number provided. * Telephone Encounter - Josephine Murphy RN - 03/02/2024 1:[address] Ramires's routing comment: "No Concern" * Telephone Encounter - Abdoul Oliva RN - 02/26/2024 1:[address] Ramires- any reserves to patient undergoing hyperbaric therapy for wounds? * Telephone Encounter - Tasha Morillo OSA - 02/26/2024 1:40 PM EDT Priscilla with [facility] for wound care Calling to discuss with [...] EDT Laboratory Lab Mobile Phlebotomy [facility] [address] [place] [address] Mvmg, Gml Mobile Home Draw [address] [place] [address] 03/13/2024 2:00 PM EDT Office Visit Dermatology [facility] [address] [facility] [place] [address] Francisco Watson MD [address] [facility] [place] [address] 03/17/2024 7:05 AM EDT Laboratory Lab Mobile Phlebotomy [facility] [address] [place] [address] Mvmg, G[facility] Mobile Home Draw [address] [facility] [place] [address] 03/18/2024 11:00 AM EDT Office Visit Urology, [facility] [address] [address] Frank Peraza MD [address] [address] [place] [address] 03/24/2024 2:30 PM EDT Office Visit Hematology/Oncology [facility] [address] [facility] [place] [address] Ayaka Tatum CRNP [address] [place] [address] 03/30/2024 12:00 PM EDT Office Visit [facility] [place] [address] Kristen Vences DO [address] [place] [address] 03/31/2024 7:05 AM EDT Laboratory Lab Mobile Phlebotomy [facility] [address] [place] [address] Mvmg, Gml Mobile Home Draw [address] [facility] [place] [address] 04/07/2024 10:00 AM EDT Office Visit Gastroenterology, [facility] [address] [facility] [place] [address] Lamar Tatum CRNP [facility] [address] 04/14/2024 7:05 AM EDT Laboratory Lab Mobile Phlebotomy [facility] [address] [place] [address] Mvmg, Gml Mobile Home Draw [address] [facility] [place], [place] [address] 04/28/2024 7:05 AM EDT Laboratory Lab Mobile Phlebotomy [facility] [address] [place], [place] [address] Mvmg, Gml Mobile Home Draw [address] [place], [place] [address] 05/12/2024 7:05 AM EDT Laboratory Lab Mobile Phlebotomy [facility] [address] [place], [place] [address] Mvmg, Gml Mobile Home Draw [address] [place], [place] [address] 05/26/2024 7:05 AM EDT Laboratory Lab Mobile Phlebotomy [facility] [address] [place] [address] Mvmg, Gml Mobile Home Draw [address] [facility] [place] [address] 06/09/2024 7:05 AM EDT Laboratory Lab Mobile Phlebotomy [facility] [address] [facility] [place] [place] [address] Mvmg, Gml Mobile Home Draw [address] [facility] [place] [address] 06/23/2024 7:05 AM EDT Laboratory Lab Mobile Phlebotomy [facility] [address] [facility] [place] [address] Mvmg, Gml Mobile Home Draw [address] [facility] [place] [address] 07/07/2024 7:05 AM EDT Laboratory Lab Mobile Phlebotomy [facility] [address] [place] [address] Mvmg, Gml Mobile Home Draw [address] [facility] [place] [address] 07/21/2024 7:05 AM EDT Laboratory Lab Mobile Phlebotomy [facility] [address] [place] [address] Mvmg, Gml Mobile Home Draw [address] [facility] [place] [address] 08/04/2024 7:05 AM EDT Laboratory Lab Mobile Phlebotomy [facility] [address] [place] [address] Mvmg, Gml Mobile Home Draw [address] [facility] [place] [address] 08/18/2024 7:05 AM EDT Laboratory Lab Mobile Phlebotomy [facility] [address] [place] [address] Mvmg, Gml Mobile Home Draw [address] [facility] [place] [place] [address] 08/20/2024 10:15 AM EDT Office Visit Ophthalmology, [facility] 132 [facility] [place] [address] Cody Gonzalez, DO [address] [place] [address] 09/01/2024 7:05 AM EDT Laboratory Lab Mobile Phlebotomy [facility] [address] [place] [address] Mvmg, Gml Mobile Home Draw [address] [place] [address] 09/15/2024 7:05 AM EDT Laboratory Lab Mobile Phlebotomy [facility] [address] [place] [address] Mvmg, Gml Mobile Home Draw [address] [place] [address] 10/12/2024 10:20 AM EST Office Visit Pulmonary Medicine, [facility] [address] [facility] [place] [address] Jordan Stanley MD [address] [place] [address] Scheduled Procedures Name Priority Associated Diagnoses Date/Ti [...] Additional history exists CKD HGB USE SMARTSET 54186 02/25/202502/25, 02/26/2024, 02/18/2024, Additional history exists CKD PHOS USE SMARTSET 64934 02/25/202501/31, 01/28/2023, 07/26/2022, Additional history exists Lipid [...] this encounter Medical Devices Implanted Type Area Netbackup Engineer Device Identifier Shelf Expiration Date Model / Serial / Lot Clareon Iol Aspheric Hydrophobic Acrylic Iol Implanted:Qty: 1 on 04/23/2023 by Cody Gonzalez DO at OR [facility] Lens Left: Eye 11/12/2025 CNA0T0 / [id number] / Viatorr Tips Endoprosthesis 8-10 Mm X 8cm / 2cm Implanted:Qty: 1 on 10/07/2020 by Go Alvarado MD at [facility] Right: Abdomen 03/03/2023 [id number] / / [id number] Description:Viatorr TIPS End oprosthesis 8-10 mm x 8cm / 2cm, Manufactored by [employer] Syr Pf 2ml Embospheres 100-300 - [id number] Implanted:Qty: 1 on 04/18/2021 by Kevin Lim DO at OR [facility] Left: Abdomen [employer] [id number] 11/25/2023 S220GH / / [id number] Lipiodol Injection - [id number] Implanted:Qty: 1 on 03/28/2022 at [facility] [employer] 03/01/2023 99753-12 01-2 / / [id number] Syr Pf 2ml Embospheres 100-300 - [id number] Implanted:Qty: 1 on 03/28/2022 at [facility] [employer] [id number] 08/31/2024 S220GH / / [id number] -[id number] Clareon Iol Aspheric Hydrophobic Acrylic Iol Implanted:Qty: 1 on 04/02/2023 by Cody Gonzalez DO at OR [facility] Right: Eye JAZMIN 11/12/2025 CNA0T0 / [id number] / documented as of this encounter Advance Directives Documents on File Type Date Recorded Patient Ring Attacher Expl anation Advance Directives and Living Will 12/11/2022 ADVANCE DIRECTIVE / LIVING WILL LIVING WILL Power of Ore Dressing Engineer 12/11/2022 POWER OF A TTORNEY Latest [...] patient have Health Care Power of Ore Dressing Engineer? No Care Teams Smelter Charger Relationship Specialty Start Date End Date Francisco Cisse MD [address] [place] [address] PCP - General Internal Medicine 09/04/21 documented as of this encounter
--- OUTSIDE RECORDS SUMMARY | 2024-03-20 16:15 | External Medical Summary | Summary of Care ---
Author Name Unknown Organization [facility] Address [address] [place] [address] Phone [phone] Care Team Providers Care Real Estate Utilization Officer Name Role Phone Francisco Cisse MD Primary Care Provider + Reason for Visit * Reason Onset Date Comments Advice 02/26/2024 Keyla Patient. Encounter Details Date Type Department Care Team (Late st Contact Info) Description 02/26/2024 Telephone Hematology/Oncology [facility] [place] [address] [place] [address] Services, Scheduling [address] [place] [address] Advice (Keyla Patient./) Allergies No known active [...] of less than 7.0% ([facility]) Use to test blood sugars 3 [...] mRNA, LNP-s, No Pre serve, 2-Dose Series ([place]) 03/08/2021,02/15/2021 HepA Inact/HepB Recomb>=18yrs old 12/04/2019,04/2019,05/20/2019 11/19/2019 PPD 06/18/2017, 3,01/09/2012,06/2011 Pneumococcal Conjugate Vacc, 13 Valent (Prevnar) 05/01/2017 Pneumococcal Polysaccharide PPV23 (Pneumovax) 08/28/2022,10/25/2015,07/14/2012 Season Influenza, Quad, PF, Adjuvanted, 65+ Yrs, IM (FLUAD) 10/07/2020(Deferred: Patient Refused - pt says he already had his shot last month at [facility]y Lyons and Mckinley Cobian [...] We received a call from Priscilla at [facility]. 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 Please fax clearance form to [phone]. If you would like to speak with Priscilla about this further she can be reached at [phone]. Thank you! * Telephone Encounter - Pari [...] - 02/26/2024 1:40 PM EDT Priscilla with [facility] for wound care Calling to discuss with [...] EDT Laboratory Lab Mobile Phlebotomy [facility] [address] [place] [address] Mvmg, [facility] Mobile Home Draw [address] [place] [address] 03/13/2024 2:00 PM EDT Office Visit Dermatology [place] [facility] [address] [facility] [place] [address] Francisco Watson MD 200 [facility] [place] [address] 03/17/2024 7:05 AM EDT Laboratory Lab Mobile Phlebotomy [facility] [address] [place] [address] Mvmg, Gml Mobile Home Draw [address] [facility] [place] [address] 03/18/2024 11:00 AM EDT Office Visit Urology, [facility] [address] Frank Peraza MD [address] [place] [address] [place] [address] 03/24/2024 2:30 PM EDT Office Visit Hematology/Oncology [facility] [place] 200 [facility] [place] [address] Ayaka Tatum CRNP 400 [facility] [place] [address] 03/30/2024 12:00 PM EDT Office Visit Family Practice [facility] [place] [address] Kristen Vences DO 132 [facility] [address] 03/31/2024 7:05 AM EDT Laboratory Lab Mobile Phlebotomy [facility] [address] [facility] [place] [address] Mvmg, Gml Mobile Home Draw [address] [facility] [place], [place] [address] 04/07/2024 10:00 AM EDT Office Visit Gastroenterology, [facility] 132 [facility] [place] [address] Lamar Tatum CRNP 132 [facility] [place] [address] 04/14/2024 7:05 AM EDT Laboratory Lab Mobile Phlebotomy [facility] [address] [employer] [facility] [place] [address] Mvmg, Gml Mobile Home Draw [address] [facility] [place] [address] 04/28/2024 7:05 AM EDT Laboratory Lab Mobile Phlebotomy [facility] [address] [facility] [place] [address] Mvmg, Gml Mobile Home Draw [address]20 [facility] [place] [address] 05/12/2024 7:05 AM EDT Laboratory Lab Mobile Phlebotomy [facility] [address] [facility] [place] [address] Mvmg, Gml Mobile Home Draw [address] [facility] [place] [address] 05/26/2024 7:05 AM EDT Laboratory Lab Mobile Phlebotomy [facility] [address] [facility] [place] [address] Mvmg, Gml Mobile Home Draw [address] [facility] [place] [address] 06/09/2024 7:05 AM EDT Laboratory Lab Mobile Phlebotomy [facility] [address] [place] [employer] [place] [address] Mvmg, Gml Mobile Home Draw [address] [facility] [place] [address] 06/23/2024 7:05 AM EDT Laboratory Lab Mobile Phlebotomy [facility] [address] [facility] [place] [address] Mvmg, Gml Mobile Home Draw [address] [facility] [place] [address] 07/07/2024 7:05 AM EDT Laboratory Lab Mobile Phlebotomy [facility] [address] [place] [employer] [place] [address] Mvmg, Gml Mobile Home Draw [address] [facility] [place] [address] 07/21/2024 7:05 AM EDT Laboratory Lab Mobile Phlebotomy [facility] [address] [facility] [place] [address] Mvmg, Gml Mobile Home Draw [address] [facility] [place] [address] 08/04/2024 7:05 AM EDT Laboratory Lab Mobile Phlebotomy [facility] [address] [place], [place] [address] Mvmg, Gml Mobile Home Draw [address] [facility] [place], [place] [address] 08/18/2024 7:05 AM EDT Laboratory Lab Mobile Phlebotomy [facility] [address] [facility] [place] [address] Mvmg, Gml Mobile Home Draw [address] [facility] [place], [place] [address] 08/20/2024 10:15 AM EDT Office Visit Ophthalmology, [facility] 132 [facility] [address] Cody Gonzalez DO 21 [facility] [place] [address] 09/01/2024 7:05 AM EDT Laboratory Lab Mobile Phlebotomy [facility] [address] [place], [place] [address] Mvmg, Gml Mobile Home Draw [address] [facility] [place] [address] 09/15/2024 7:05 AM EDT Laboratory Lab Mobile Phlebotomy [facility] [address] [employer] [facility] [place], [place] [address] Mvmg, Gml Mobile Home Draw [address] [facility] [place], [place] [address] 10/12/2024 10:20 AM EST Office Visit Pulmonary Medicine, [facility] 132 [facility] [place] [address] Jordan Stanley MD [address] [place] [address] Scheduled Procedures Name Priority Associated Diagnoses Date/Ti [...] Additional history exists CKD HGB USE SMARTSET 76631 02/25/202502/25, 02/26/2024, 02/18/2024, Additional history exists CKD PHOS USE SMARTSET 85890 02/25/202501/31, 01/28/2023, 07/26/2022, Additional history exists Lipid [...] this encounter Medical Devices Implanted Type Area Zone Maintenance Technician Device Identifier Shelf Expiration Date Model / Serial / Lot Clareon Iol Aspheric Hydrophobic Acrylic Iol Implanted:Qty: 1 on 04/23/2023 by Cody Gonzalez DO at OR [facility] Lens Left: Eye 11/12/2025 CNA0T0 / [id number] / Viatorr Tips Endoprosthesis 8-10 Mm X 8cm / 2cm Implanted:Qty: 1 on 10/07/2020 by Go Alvarado MD at [facility] Right: Abdomen 03/03/2023 [id number] / / [id number] Description:Viatorr TIPS End oprosthesis 8-10 mm x 8cm / 2cm, Manufactored by [employer] Syr Pf 2ml Embospheres 100-300 - [id number] Implanted:Qty: 1 on 04/18/2021 by Kevin Lim DO at OR [facility] Left: Abdomen [employer] [id number] 11/25/2023 S220GH / / [id number] Lipiodol Injection - [id number] Implanted:Qty: 1 on 03/28/2022 at [facility] [employer] 03/01/2023 [id number] 01-2 / / [id number] Syr Pf 2ml Embospheres 100-300 - [id number] Implanted:Qty: 1 on 03/28/2022 at [facility] [employer] [id number] 08/31/2024 S220GH / / [id number] -[id number] Clareon Iol Aspheric Hydrophobic Acrylic Iol Implanted:Qty: 1 on 04/02/2023 by Cody Gonzalez DO at OR [facility] Right: Eye JAZMIN 11/12/2025 CNA0T0 / [id number] / documented as of this encounter Advance Directives Documents on File Type Date Recorded Patient Pmo Business Analyst Expl anation Advance Directives and Living Will 12/11/2022 ADVANCE DIRECTIVE / LIVING WILL LIVING WILL Power of Tree Driller 12/11/2022 POWER OF A TTORNEY Latest Code [...] the patient have Health Care Power of Tree Driller? No Care Teams Real Estate Utilization Officer Relationship Specialty Start Date End Date Francisco Cisse MD [address] [place] [address] PCP - General Internal Medicine 09/04/21 documented as of this encounter
--- OUTSIDE RECORDS SUMMARY | 2024-03-20 16:16 | External Medical Summary | Summary of Care ---
Author Name Unknown Organization [facility] Address [address] [facility] [address] Phone [phone] Care Team Providers Care Mortar Carrier Name Role Phone Francisco Cisse MD Primary Care Provider + Reason for Visit * Reason Onset Date Comments Medication Refill 02/24/2024 Encounter Details Date Type Department Care Team (Late st Contact Info) Description 02/24/2024 Refill General Internal Medicine [facility] 200 [facility] [place] [address] Francisco Cisse MD 200 [place] [address] Allergies No known active allergiesdocumented as of this encounter (statuses as of 02/25/2024) Medications Medication Sig Dispensed Refills Start Date [...] as of this encounter (statuses as of 02/25/2024) Active Problems Problem Noted Date Diagnosed Date [...] as of this encounter (statuses as of 02/25/2024) Resolved Problems Problem Noted Date Diagnosed Date [...] as of this encounter (statuses as of 02/25/2024) Immunizations Name Administration Dates Next Due COVID-19 mRNA, LNP-s, No Pre serve, 2-Dose Series (SpeechTrans) 03/08/2021,02/15/2021 HepA Inact/HepB Recomb>=18yrs old 12/04/2019,04/2019,05/20/2019 11/19/2019 PPD 06/18/2017, 3,01/09/2012,06/2011 Pneumococcal Conjugate Vacc, 13 Valent (Prevnar) 05/01/2017 Pneumococcal Polysaccharide PPV23 (Pneumovax) 08/28/2022,10/25/2015,07/14/2012 Season Influenza, Quad, PF, Adjuvanted, 65+ Yrs, IM (FLUAD) 10/07/2020(Deferred: Patient Refused - pt says he already had his shot last month at [facility] Handy Lyons and Mckinley Cobian [...] encounter Miscellaneous Notes * Telephone Encounter - Ca Ann RPh - 02/25/2024 2:58 PM EDT Refused Prescriptions: Disp Refills DULoxetine HCl 30 MG Oral Capsule Delayed *90 Cap*1 Sig: Take 1 Capsule by mouth in the morning.Refused By: CA ANNReason for Refusal: Too soon--- documented in this encounter Plan of Treatment Upcoming Encounters Date Type Department Care Team (Late st Contact Info) Description 02/26/2024 11:20 AM EDT Office Visit General Internal Medicine [facility] [place] [address] [place], [place] [phone] Francisco Cisse MD 200 [facility] [place] [address] 02/27/2024 10:20 AM EDT Office Visit Pulmonary Medicine, [facility] [address] [place] [address] Jordan Stanley MD [address] [place] [address] 03/03/2024 8:40 AM EDT Laboratory Lab Mobile Phlebotomy [facility] [address] [place] [address] [facility] [address] [place] [address] 03/13/2024 2:00 PM EDT Office Visit Dermatology [facility] 200 [facility] [place] [address] Francisco Watson MD 200 [facility] [place] [address] 03/17/2024 8:40 AM EDT Laboratory Lab Mobile Phlebotomy [facility] [address] [place] [address] [facility], [facility] [address] [place] [address] 03/18/2024 11:00 AM EDT Office Visit Urology, [facility] [address] [place] [address] Frank Peraza MD [address] [place] [address] [place] [address] 03/24/2024 2:30 PM EDT Office Visit Hematology/Oncology [facility] 200 [facility] [place] [address] Ayaka Tatum CRNP [address] [place] [address] [place] [address] 03/30/2024 12:00 PM EDT Office Visit Family Practice [facility] [address] [place] [address] Kristen Vences DO [address] [place] [address] 03/31/2024 8:40 AM EDT Laboratory Lab Mobile Phlebotomy [facility] [address] [place] [address] [facility] Draw [address] [place] [address] 04/07/2024 10:00 AM EDT Office Visit Gastroenterology, [facility] [address] [place] [address] Lamar Tatum CRNP [address] [place] [address] 04/14/2024 8:40 AM EDT Laboratory Lab Mobile Phlebotomy [facility] [address] [place] [address] [facility] [address] [place] [address] 04/28/2024 8:40 AM EDT Laboratory Lab Mobile Phlebotomy [facility] [address] [place] [address] [facility] [address] [place] [address] 05/12/2024 8:40 AM EDT Laboratory Lab Mobile Phlebotomy [facility] [address] [place] [address] [facility] [address] [place] [address] 05/26/2024 8:40 AM EDT Laboratory Lab Mobile Phlebotomy [facility] [address] [place] [address] [facility] [address] [place] [address] 06/09/2024 8:40 AM EDT Laboratory Lab Mobile Phlebotomy [facility] [address] [place] [address] [facility] [address] [place] [address] 06/23/2024 8:40 AM EDT Laboratory Lab Mobile Phlebotomy [facility] [address] [place] [address] [facility] [address] [place] [address] 07/07/2024 8:40 AM EDT Laboratory Lab Mobile Phlebotomy [facility] [address] [place] [address] [facility] [address] [place] [address] 07/21/2024 8:40 AM EDT Laboratory Lab Mobile Phlebotomy [facility] [address] [place] [address] [facility] [address] [place] [address] 08/04/2024 8:40 AM EDT Laboratory Lab Mobile Phlebotomy [facility] [address] [place] [address] [facility] [address] [place] [address] 08/18/2024 8:40 AM EDT Laboratory Lab Mobile Phlebotomy [facility] [address] [place] [address] [facility] [address] [place] [address] 08/20/2024 10:15 AM EDT Office Visit Ophthalmology, [facility] [address] [place] [address] Cody Gonzalez, DO [address] [place] [address] 09/01/2024 8:40 AM EDT Laboratory Lab Mobile Phlebotomy [facility] [address] [place] [address] [facility], [facility] Draw [address] [place] [address] 09/15/2024 8:40 AM EDT Laboratory Lab Mobile Phlebotomy [facility] [address] [place] [address] [facility], [facility] [address] [place], [place] [id number] Scheduled Procedures Name Priority Associated Diagnoses Date/Ti [...] Additional history exists CKD PHOS USE SMARTSET 85665 01/28/202401/03, 07/26/2022, 12/05/2021, Additional history exists Diabetic Foot Exam 03/06/2024 03/06/2023, 0 01/03/2022, 03/02/2021, Additional history exists HbA1c 05/28/2024 11/27/2023, 05/03, 01/28/2023, Additional history exists Albumin/Creatinine Ratio 07/12/2024 023, 10/01/2022, 09/11/2021, Additional history exists COLONOSCOPY-ANNUAL AGES 18-100 08/09/2024 08/09/2023, 11/07/2022, 11/07/2022, Additional history exists GFR 08/15/2024 02/13/2024, 01/03, 01/17/2024, Additional history exists CKD HGB USE SMARTSET 17600 02/17/202502/17, 02/18/2024, 02/13/2024, Additional history exists Lipid [...] this encounter Medical Devices Implanted Type Area Produce Specialist Device Identifier Shelf Expiration Date Model / Serial / Lot Clareon Iol Aspheric Hydrophobic Acrylic Iol Implanted:Qty: 1 on 04/23/2023 by Cody Gonzalez DO at [facility] Lens Left: Eye 11/12/2025 CNA0T0 / [id number] / Viatorr Tips Endoprosthesis 8-10 Mm X 8cm / 2cm Implanted:Qty: 1 on 10/07/2020 by Go Alvarado MD at [facility] Right: Abdomen 03/03/2023 [id number] / / [id number] Description:Viatorr TIPS End oprosthesis 8-10 mm x 8cm / 2cm, Manufactored by [employer] Syr Pf 2ml Embospheres 100-300 - [id number] Implanted:Qty: 1 on 04/18/2021 by Kevin Lim DO at [facility] Left: Abdomen [employer] [id number] 11/25/2023 S220GH / / [id number] Lipiodol Injection - [id number] Implanted:Qty: 1 on 03/28/2022 at [facility] [employer] 03/01/2023 20610-59 01-2 / / [id number] Syr Pf 2ml Embospheres 100-300 - [id number] Implanted:Qty: 1 on 03/28/2022 at [facility] [employer] [id number] 08/31/2024 S220GH / / [id number] -[id number] Clareon Iol Aspheric Hydrophobic Acrylic Iol Implanted:Qty: 1 on 04/02/2023 by Cody Gonzalez DO at [facility] Right: Eye JAZMIN 11/12/2025 CNA0T0 / [id number] / documented as of this encounter Advance Directives Documents on File Type Date Recorded Patient Director Sales And Marketing Expl anation Advance Directives and Living Will 12/11/2022 ADVANCE DIRECTIVE / LIVING WILL LIVING WILL Power of Frog Or Oyster Farmworker 12/11/2022 POWER OF A TTORNEY Latest [...] the patient have Health Care Power of Frog Or Oyster Farmworker? No Care Teams Mortar Carrier Relationship Specialty Start Date End Date Francisco Cisse MD 200 [place] [address] PCP - General Internal Medicine 09/04/21 documented as of this encounter
--- OUTSIDE RECORDS SUMMARY | 2024-03-20 16:16 | External Medical Summary | Summary of Care ---
Author Name Unknown Organization [facility] Address [address] [place] [address] Phone [phone] Care Team Providers Care Implementation Project Manager Name Role Phone Francisco Cisse MD Primary Care Provider + Reason for Visit * Reason Onset Date Comments Test Results Lab 02/18/2024 Encounter Details Date Type Department Care Team (Late st Contact Info) Description 02/18/2024 Telephone Hematology/Oncology [facility] 200 [facility] [address] Ayaka Tatum CRNP 400 [facility] [place] [address] Test Results Lab Allergies No [...] A1c goal of less than 7.0% ([facility]) Use to test blood [...] mRNA, LNP-s, No Pre serve, 2-Dose Series (Dejamor) 03/08/2021,02/15/2021 HepA Inact/HepB Recomb>=18yrs old 12/04/2019,04/2019,05/20/2019 11/19/2019 PPD 06/18/2017, 3,01/09/2012,06/2011 Pneumococcal Conjugate Vacc, 13 Valent (Prevnar) 05/01/2017 Pneumococcal Polysaccharide PPV23 (Pneumovax) 08/28/2022,10/25/2015,07/14/2012 Season Influenza, Quad, PF, Adjuvanted, 65+ Yrs, IM (FLUAD) 10/07/2020(Deferred: Patient Refused - pt says he already had his shot last month at [facility] Handy Lyons and Mckinley Cobian made [...] Telephone Encounter - Frank Peraza MD - 02/25/2024 8:42 AM EDT Noted, reasonable, patient can follow-up as scheduled in a few weeks. Thanks, HM * Telephone Encounter - Kaylie Glass LPN - 02/25/2024 8:36 AM EDT Spoke with pt. Declining procedure for now. He's going to wait and see how hyperbaric therapy goes.If he is unable to tolerate therapy, he will consider procedure. Patient will keep upcoming appt asscheduled and contact office with any questions or concerns in the meantime. Sent as FYI. Thank you Gudelia * Telephone Encounter - Frank Peraza MD - 02/24/2024 3:15 PM EDT Ideally catheter would be left in for 3 days or less, but very much depends on the patient's findings and reaction intervention. Thanks, HM * Telephone Encounter - Kaylie Glass LPN - 02/24/2024 8:[address] Peraza Please advise on pt's catheter requirements if he were to go through with fulguration. Thank you Gudelia * Telephone Encounter - Kecia Baca LPN - 02/21/2024 9:11 AM EDT LAMONT Norton from [place] wound [facility] returned call to inform our office that they have received the records and his case is under review. There is a delay because the patients health condition may disqualify him as a appropriate candidate for hypobaric therapy the wound clinic is still working on the referral. * Telephone Encounter - Josephine Murphy RN - 02/19/2024 12:23 PM EDT [facility] hospitalist will consent patient for transfusion- updated [facility]. * Telephone Encounter - Kaylie Glass LPN - 02/19/2024 11:28 AM EDT Spoke with patient. States [facility] center is to call him this afternoon. I also left a message for wound care asking them to call to confirm records and referral were received. Patient states he is willing to have fulguration only if there is no catheter involved afterwards. Please advise. Thank you Gudleia * Telephone Encounter - Frank Peraza MD [...] a transfusion tomorrow. His son would prefer hot punch press operator appt Patient to receive 1 unit PRBC for hgb 7.0. Called [facility] blood bank. No issues with having blood available pending changes to T&S. Called [facility] ([place]) and central scheduling ([place]). [...] scheduling 1 unit PRBC transfusion at [facility]. With T&S please fax order for patient to have ferritin and iron screen drawn prior to transfusion. Orders placed. Repeat CBCd in one week. documented in this encounter Plan of Treatment Upcoming Encounters Date Type Department Care Team (Late st Contact Info) Description 02/26/2024 11:20 AM EDT Office Visit General Internal Medicine [facility] 200 [facility] [place] [address] Francisco Cisse MD 200 [facility] [place] [address] 02/27/2024 10:20 AM EDT Office Visit Pulmonary Medicine, [facility] 132 [facility] [place] [address] Jordan Stanley MD [address] [facility] [address] 03/03/2024 8:40 AM EDT Laboratory Lab Mobile Phlebotomy [facility] [address] [place] [address] [facility] Mobile Home Draw [address] [place] [address] 03/13/2024 2:00 PM EDT Office Visit Dermatology [facility] [place] [address] [place] [address] Francisco Watson MD [address] [place] [address] [place] [address] 03/17/2024 8:40 AM EDT Laboratory Lab Mobile Phlebotomy [facility] [address] [place] [address] [facility] Mobile Home Draw [address] [place] [address] 03/18/2024 11:00 AM EDT Office Visit Urology, [facility] 132 [place] [address] Frank Peraza MD 27 [facility] [address] [place] [address] 03/24/2024 2:30 PM EDT Office Visit Hematology/Oncology [facility] 200 [place] [id number] Ayaka Tatum CRNP [address] [place] [address] 03/30/2024 12:00 PM EDT Office Visit Family Practice [facility] 132 [place] [address] Kristen Vences DO 132 [place] [address] 03/31/2024 8:40 AM EDT Laboratory Lab Mobile Phlebotomy [facility] [address] [place] [address] [facility] Mobile Home Draw [address] [place] [address] 04/07/2024 10:00 AM EDT Office Visit Gastroenterology, [facility] [address] [place] [address] Lamar Tatum CRNP 132 [place] [address] 04/14/2024 8:40 AM EDT Laboratory Lab Mobile Phlebotomy [facility] [address] [place] [address] [facility] [address] [place] [address] 04/28/2024 8:40 AM EDT Laboratory Lab Mobile Phlebotomy [facility] [address] [place] [address] [facility] [address] [place] [address] 05/12/2024 8:40 AM EDT Laboratory Lab Mobile Phlebotomy [facility] [address] [place] [address] [facility] [address] [place] [address] 05/26/2024 8:40 AM EDT Laboratory Lab Mobile Phlebotomy [facility] [address] [place] [address] [facility] [address] [place] [address] 06/09/2024 8:40 AM EDT Laboratory Lab Mobile Phlebotomy [facility] [address] [place] [address] [facility] [address] [place] [address] 06/23/2024 8:40 AM EDT Laboratory Lab Mobile Phlebotomy [facility] [address] [place] [address] [facility] [address] [place] [address] 07/07/2024 8:40 AM EDT Laboratory Lab Mobile Phlebotomy [facility] [address] [place] [address] [facility] [address] [place] [address] 07/21/2024 8:40 AM EDT Laboratory Lab Mobile Phlebotomy [facility] [address] [place] [address] [facility] [address] [place] [address] 08/04/2024 8:40 AM EDT Laboratory Lab Mobile Phlebotomy [facility] [address] [place] [address] [facility] Draw [address] [place] [address] 08/18/2024 8:40 AM EDT Laboratory Lab Mobile Phlebotomy [facility] [address] [place] [address] [facility] Draw [address] [place] [address] 08/20/2024 10:15 AM EDT Office Visit Ophthalmology, [address] [address] Cody Gonzalez DO [address] [place] [address] 09/01/2024 8:40 AM EDT Laboratory Lab Mobile Phlebotomy [facility] [address] [place] [address] [facility] Draw [address] [place] [address] 09/15/2024 8:40 AM EDT Laboratory Lab Mobile Phlebotomy [facility] [address] [place] [address] [facility] Draw [address] [place] [address] Scheduled Orders Name Type Priority Associated Diagnoses [...] Additional history exists CKD PHOS USE SMARTSET 61658 01/28/202401/03, 07/26/2022, 12/05/2021, Additional history exists Diabetic Foot Exam 03/06/2024 03/06/2023, 0 01/03/2022, 03/02/2021, Additional history exists HbA1c 05/28/2024 11/27/2023, 05/03, 01/28/2023, Additional history exists Albumin/Creatinine Ratio 07/12/2024 023, 10/01/2022, 09/11/2021, Additional history exists COLONOSCOPY-ANNUAL AGES 18-100 08/09/2024 08/09/2023, 11/07/2022, 11/07/2022, Additional history exists GFR 08/15/2024 02/13/2024, 01/03, 01/17/2024, Additional history exists CKD HGB USE SMARTSET 29200 02/17/202502/17, 02/18/2024, 02/13/2024, Additional history exists Lipid [...] this encounter Medical Devices Implanted Type Area Wireless Development Manager Device Identifier Shelf Expiration Date Model / Serial / Lot Clareon Iol Aspheric Hydrophobic Acrylic Iol Implanted:Qty: 1 on 04/23/2023 by Cody Gonzalez DO at [facility] Lens Left: Eye 11/12/2025 CNA0T0 / [id number] / Viatorr Tips Endoprosthesis 8-10 Mm X 8cm / 2cm Implanted:Qty: 1 on 10/07/2020 by Go Alvarado MD at [facility] Right: Abdomen 03/03/2023 [id number] / / [id number] Description:Viatorr TIPS End oprosthesis 8-10 mm x 8cm / 2cm, Manufactored by [employer] Syr Pf 2ml Embospheres 100-300 - [id number] Implanted:Qty: 1 on 04/18/2021 by Kevin Lim DO at [facility] Left: Abdomen [employer] [id number] 11/25/2023 S220GH / / [id number] Lipiodol Injection - [id number] Implanted:Qty: 1 on 03/28/2022 at [facility] [employer] 03/01/2023 25303-32 01-2 / / [id number] Syr Pf 2ml [facility] 100-300 - [id number] Implanted:Qty: 1 on 03/28/2022 at [facility] [employer] [id number] 08/31/2024 S220GH / / [id number] -[id number] Clareon Iol Aspheric Hydrophobic Acrylic Iol Implanted:Qty: 1 on 04/02/2023 by Cody Gonzalez DO at [facility] Right: Eye JAZMIN 11/12/2025 CNA0T0 / [id number] / documented as of this encounter Visit Diagnoses Diagnosis Iron deficiency anemia, unspecified iron deficiency anemia type- Primary documented in this encounter Advance Directives Documents on File Type Date Recorded Patient Stone Setter Expl anation Advance Directives and Living Will 12/11/2022 ADVANCE DIRECTIVE / LIVING WILL LIVING WILL Power of Fire Claims Adjuster 12/11/2022 POWER OF A TTORNEY Latest [...] the patient have Health Care Power of Fire Claims Adjuster? No Care Teams Implementation Project Manager Relationship Specialty Start Date End Date Francisco Cisse MD 200 [facility] [place] [address] PCP - General Internal Medicine 09/04/21 documented as of this encounter
--- OUTSIDE RECORDS SUMMARY | 2024-03-20 16:16 | External Medical Summary ---
Author Name Unknown Address Unknown Organization K09[facility] [place] [address] Laboratory Report Ordering Provider Test Date Status SHREYA SEGUNDO 02/26/2024 11:46:45 Final Observation Date Value Abnormality Reference (Units ) Status Nucleated erythrocytes/100 leukocytes [Ratio] in Blood by Automated count 02/26/2024 11:46:45 Final Acanthocytes [Presence] in Blood by Light microscopy 02/26/2024 11:46:45 Moderate Abnormal None Seen Final Elliptocytes [Presence] in Blood by Light microscopy 02/26/2024 11:46:45 Moderate Abnormal None Seen Final Polychromasia [Presence] in Blood by Light microscopy 02/26/2024 11:46:45 Moderate Abnormal None Seen Final Schistocytes 02/26/2024 11:46:45 Few Abnormal None Seen Final Dacrocytes [Presence] in Blood by Light microscopy 02/26/2024 11:46:45 Moderate Abnormal None Seen Final Performing Location [facility] [place] [address]
--- OUTSIDE RECORDS SUMMARY | 2024-03-20 16:16 | External Medical Summary ---
Author Name Unknown Address Unknown Organization [id number] [place] [address] Laboratory Report Ordering Provider Test Date Status SHREYA SEGUNDO 02/26/2024 11:46:45 Final Observation Date Value Abnormality Reference (Units ) Status Phosphate 02/26/2024 11:46:45 2.5 2.5-4.8 (m g/dL) Final Performing Location [facility] [place] [address]
--- OUTSIDE RECORDS SUMMARY | 2024-03-20 16:16 | External Medical Summary ---
Author Name Unknown Address Unknown Organization K[facility] [place] [address] Laboratory Report Ordering Provider Test Date Status SHREYA SEGUNDO 02/26/2024 11:46:45 Final Observation Date Value Abnormality Reference (Units ) Status WBC, Total 02/26/2024 11:46:45 6.74 4.00-10.8 0 (K/uL) Final RBC 02/26/2024 11:46:45 2.60 4.50-5.25 (M/uL) Final Hemoglobin 02/26/2024 11:46:45 8.2 Below low normal 14 .0-16.8 (g/dL) Final HCT 02/26/2024 11:46:45 26.1 Below low normal 40. 0-48.4 (%) Final MCV 02/26/2024 11:46:45 100.4 82.0-99.5 (fL) Final MCH 02/26/2024 11:46:45 31.5 27.0-34.0 (pg) Final MCHC 02/26/2024 11:46:45 31.4 32.0-36.0 (g/dL) Final RDW 02/26/2024 11:46:45 22.0 11.5-15.5 (%) Final Platelets 02/26/2024 11:46:45 126 Below low normal 140 -400 (K/uL) Final MPV 02/26/2024 11:46:45 10.2 6.6-11.1 ( fL) Final Performing Location [facility] [place] [address]
--- OUTSIDE RECORDS SUMMARY | 2024-03-20 16:16 | External Medical Summary | Summary of Care ---
Author Name Unknown Organization [facility] Address [address] [place] [place] [address] Phone [phone] Care Team Providers Care Lawyer Probate Name Role Phone Francisco Cisse MD Primary Care Provider + Reason for Visit * Reason Onset Date Comments Test Results Lab 02/18/2024 Encounter Details Date Type Department Care Team (Late st Contact Info) Description 02/18/2024 Telephone Hematology/Oncology [facility] [address] [facility] [address] Ayaka Tatum CRNP [address] [facility] [place] [address] Test Results Lab Allergies No [...] mRNA, LNP-s, No Pre serve, 2-Dose Series (Clickslide) 03/08/2021,02/15/2021 HepA Inact/HepB Recomb>=18yrs old 12/04/2019,04/2019,05/20/2019 11/19/2019 PPD 06/18/2017, 3,01/09/2012,06/2011 Pneumococcal Conjugate Vacc, 13 Valent (Prevnar) 05/01/2017 Pneumococcal Polysaccharide PPV23 (Pneumovax) 08/28/2022,10/25/2015,07/14/2012 Season Influenza, Quad, PF, Adjuvanted, 65+ Yrs, IM (FLUAD) 10/07/2020(Deferred: Patient Refused - pt says he already had his shot last month at [facility] and [facility] [...] 02/21/2024 9:11 AM EDT LAMONT Norton from [place] [facility] returned call to inform our office that they have received the records and his case is under review. There is a delay because the patients health condition may disqualify him as a appropriate candidate for hypobaric therapy the wound clinic is still working on the referral. * Telephone Encounter - Josephine Murphy RN - 02/19/2024 12:23 PM EDT [facility] hospitalist will consent patient for transfusion- updated [facility]. * Telephone Encounter - Kaylie Glass LPN - 02/19/2024 11:28 AM EDT Spoke with patient. States [place] [facility] is to call him [...] a transfusion tomorrow. His son would prefer ict support and test engineers appt Patient to receive 1 unit PRBC for hgb 7.0. Called [facility] blood bank. No issues with having blood available pending changes to T&S. Called [facility] ([place]) and central scheduling ([place]). Patient [...] MyG. * Telephone Encounter - Rc AyakaJEFF Riley - 02/18/2024 2:17 PM EDT Results for [...] in scheduling 1 unit PRBC transfusion at [facility]. With T&S please fax order for patient to have ferritin and iron screen drawn prior to transfusion. Orders placed. Repeat CBCd in one week. documented in this encounter Plan of Treatment Upcoming Encounters Date Type Department Care Team (Late st Contact Info) Description 02/26/2024 11:20 AM EDT Office Visit General Internal Medicine [facility] 200 [facility] [place] [id number] Francisco Cisse MD [address] [facility] [place] [address] 02/27/2024 10:20 AM EDT Office Visit Pulmonary Medicine, [facility] [address] [place] [address] Jordan Stanley MD [address] [place] [facility] [place] [address] 03/03/2024 8:40 AM EDT Laboratory Lab Mobile Phlebotomy [facility] [address] [place] [address] [facility], [facility] Mobile Home Draw [address] [place] [address] 03/13/2024 2:00 PM EDT Office Visit Dermatology [facility] [address] [facility] [place] [address] Francisco Watson MD [address] [facility] [place] [address] 03/17/2024 8:40 AM EDT Laboratory Lab Mobile Phlebotomy [facility] [address] [place] [address] [facility], [facility] Mobile Home Draw [address] [place] [address] 03/18/2024 11:00 AM EDT Office Visit Urology, [facility] [address] [place] [address] Frank Peraza MD [address] [address] [place] [address] 03/24/2024 2:30 PM EDT Office Visit Hematology/Oncology [facility] [address] [facility] [place] [address] Ayaka Tatum CRNP [address] [facility] [place] [address] 03/30/2024 12:00 PM EDT Office Visit Family Practice [facility] [address] [place] [address] Kristen Vences DO [address] [place] [address] 03/31/2024 8:40 AM EDT Laboratory Lab Mobile Phlebotomy [facility] [address] [place] [address] [facility], [facility] Mobile Home Draw [address] [place] [address] 04/07/2024 10:00 AM EDT Office Visit Gastroenterology, [facility] [address] [place] [address] Lamar Tatum CRNP [address] [facility] [place] [address] 04/14/2024 8:40 AM EDT Laboratory Lab Mobile Phlebotomy [facility] [address] [place] [address] [facility], [facility] Mobile Home Draw [address] [place] [address] 04/28/2024 8:40 AM EDT Laboratory Lab Mobile Phlebotomy [facility] [address] [place] [address] [facility] Mobile Home Draw [address] [place] [address] 05/12/2024 8:40 AM EDT Laboratory Lab Mobile Phlebotomy [facility] [address] [place] [address] [facility] Draw [address] [place] [address] 05/26/2024 8:40 AM EDT Laboratory Lab Mobile Phlebotomy [facility] [address] [place] [address] [facility] [address] [place] [address] 06/09/2024 8:40 AM EDT Laboratory Lab Mobile Phlebotomy [facility] [address] [place] [address] [facility] [address] [place] [address] 06/23/2024 8:40 AM EDT Laboratory Lab Mobile Phlebotomy [facility] [address] [place] [address] [facility] [address] [place] [address] 07/07/2024 8:40 AM EDT Laboratory Lab Mobile Phlebotomy [facility] [address] [place] [address] [facility] [address] [place] [address] 07/21/2024 8:40 AM EDT Laboratory Lab Mobile Phlebotomy [facility] [address] [place] [address] [facility] [address] [place] [address] 08/04/2024 8:40 AM EDT Laboratory Lab Mobile Phlebotomy [facility] [address] [place] [address] [facility] Draw [address] [place] [address] 08/18/2024 8:40 AM EDT Laboratory Lab Mobile Phlebotomy [facility] [address] [place] [address] [facility] Draw [address] [place] [address] 08/20/2024 10:15 AM EDT Office Visit Ophthalmology, [address] [address] Cody Gonzalez DO [address] [place] [address] 09/01/2024 8:40 AM EDT Laboratory Lab Mobile Phlebotomy [facility] [address] [place] [address] [facility], [facility] Home Draw [address] [place] [address] 09/15/2024 8:40 AM EDT Laboratory Lab Mobile Phlebotomy [facility] [address] [place] [address] [facility], [facility] Draw [address] [place] [address] Scheduled Orders Name Type Priority Associated Diagnoses [...] Additional history exists CKD PHOS USE SMARTSET 30032 01/28/202401/03, 07/26/2022, 12/05/2021, Additional history exists Diabetic Foot Exam 03/06/2024 03/06/2023, 0 01/03/2022, 03/02/2021, Additional history exists HbA1c 05/28/2024 11/27/2023, 05/03, 01/28/2023, Additional history exists Albumin/Creatinine Ratio 07/12/2024 023, 10/01/2022, 09/11/2021, Additional history exists COLONOSCOPY-ANNUAL AGES 18-100 08/09/2024 08/09/2023, 11/07/2022, 11/07/2022, Additional history exists GFR 08/15/2024 02/13/2024, 01/03, 01/17/2024, Additional history exists CKD HGB USE SMARTSET 53031 02/17/202502/17, 02/18/2024, 02/13/2024, Additional history exists Lipid [...] this encounter Medical Devices Implanted Type Area Dobby Loom Chain Pegger Device Identifier Shelf Expiration Date Model / Serial / Lot Clareon Iol Aspheric Hydrophobic Acrylic Iol Implanted:Qty: 1 on 04/23/2023 by Cody Gonzalez DO at OR [facility] Lens Left: Eye 11/12/2025 [id number] / [id number] / Viatorr Tips Endoprosthesis 8-10 Mm X 8cm / 2cm Implanted:Qty: 1 on 10/07/2020 by Go Alvarado MD at [facility] Right: Abdomen 03/03/2023 [id number] / / [id number] Description:Viatorr TIPS End oprosthesis 8-10 mm x 8cm / 2cm, Manufactored by [employer] Syr Pf 2ml Embospheres 100-300 - [id number] Implanted:Qty: 1 on 04/18/2021 by Kevin Lim DO at OR [facility] Left: Abdomen [employer] [id number] 11/25/2023 S220GH / / [id number] -[id number] Lipiodol Injection - [id number] Implanted:Qty: 1 on 03/28/2022 at [facility] [employer] 03/01/2023 [id number] 01-2 / / [id number] Syr Pf 2ml Embospheres 100-300 - [id number] Implanted:Qty: 1 on 03/28/2022 at [facility] [id number] 08/31/2024 S220GH / / [id number] -[id number] Clareon Iol Aspheric Hydrophobic Acrylic Iol Implanted:Qty: 1 on 04/02/2023 by Cody Gonzalez DO at OR [facility] Right: Eye JAZMIN 11/12/2025 CNA0T0 / [id number] / documented as of this encounter Visit Diagnoses Diagnosis Iron deficiency anemia, unspecified iron deficiency anemia type- Primary documented in this encounter Advance Directives Documents on File Type Date Recorded Patient Manager Ccu Expl anation Advance Directives and Living Will 12/11/2022 ADVANCE DIRECTIVE / LIVING WILL LIVING WILL Power of Water Resources Business Segment Leader 12/11/2022 POWER OF A TTORNEY Latest Code [...] the patient have Health Care Power of Water Resources Business Segment Leader? No Care Teams Lawyer Probate Relationship Specialty Start Date End Date Francisco Cisse MD [address] [facility] [place] [address] PCP - General Internal Medicine 09/04/21 documented as of this encounter
--- OUTSIDE RECORDS SUMMARY | 2024-03-20 16:16 | External Medical Summary ---
Author Name Unknown Address Unknown Organization K09[facility] [place] [place] [address] Laboratory Report Ordering Provider Test Date Status SHREYA SEGUNDO 02/26/2024 11:46:45 Final Observation Date Value Abnormality Reference (Units ) Status SYNC LEUKOCYTES IN BLOOD BY AUTOMATED COUNT 02/26/2024 11:46:45 6.74 4.00-10.80 (K/uL) Final Segs 02/26/2024 11:46:45 75.3 Above high normal 40.0-75.0 (%) Final Lymphs % 02/26/2024 11:46:45 16.8 Below low normal 18.0-42.0 (%) Final Monos 02/26/2024 11:46:45 4.0 1.0-11.0 (%) Final Eosinophils 02/26/2024 11:46:45 3.3 0.0-6.0 (%) Final Basos 02/26/2024 11:46:45 0.6 0.0-2.0 (%) Final Absolute Segs 02/26/2024 11:46:45 5.08 1.80-7.70 (K/uL) Final Lymphs, absolute 02/26/2024 11:46:45 1.13 1.00-4.80 (K/ul) Final Monos, Abs 02/26/2024 11:46:45 0.27 0.00-1.10 (K/uL) Final Eos, Abs 02/26/2024 11:46:45 0.22 0.00-0.70 (K/uL) Final Basos, Abs 02/26/2024 11:46:45 0.04 0.00-0.20 (K/uL) Final Performing Location [facility] [place] [address]
--- OUTSIDE RECORDS SUMMARY | 2024-03-20 16:16 | External Medical Summary ---
Author Name Unknown Address Unknown Organization K09:[facility] [address] [place] [address] Laboratory Report Ordering Provider Test Date Status SHREYA SEGUNDO 02/26/2024 11:46:45 Final Observation Date Value Abnormality Reference (Units ) Status BUN 02/26/2024 11:46:45 26 Above high normal 6-20 (mg/dL) Final Creatinine 02/26/2024 11:46:45 1.2 0.6-1.2 (mg/dL) Final Glomerular filtration rate/1.73 sq M.predicted [Volume Rate/Area] in Serum, Plasma or Blood by Creatinine-based formula (CKD-EPI) 02/26/2024 11:46:45 62 >=60 (mL/min) Final eGFR is calculated based on the CKD-EPI 2020 equation Sodium 02/26/2024 11:46:45 141 135-146 (m mol/L) Final Potassium 02/26/2024 11:46:45 4.7 3.5-5.1 (m mol/L) Final Cl 02/26/2024 11:46:45 110 Above high normal 98 -107 (mmol/L) Final CO2 02/26/2024 11:46:45 20 Below low normal 22- 32 (mmol/L) Final Anion gap 02/26/2024 11:46:45 11 7-15 (mmol /L) Final Glucose 02/26/2024 11:46:45 148 Above high normal 70 -120 (mg/dL) Final Albumin 02/26/2024 11:46:45 2.6 Below low normal 3.8 -5.0 (g/dL) Final AST (Aspartate aminotransferase) 02/26/2024 11:46:45 43 10-50 (U/L) Fin al Alk Phos 02/26/2024 11:46:45 289 Above high normal 35 -130 (U/L) Final Bilirubin, Total 02/26/2024 11:46:45 1.8 Above high no rmal <=1.2 (mg/dL) Final Calcium 02/26/2024 11:46:45 8.0 Below low normal 8.4 -10.2 (mg/dL) Final Protein 02/26/2024 11:46:45 5.6 Below low normal 6.0 -8.3 (g/dL) Final ALT (Alanine aminotransferase) 02/26/2024 11:46:45 22 10-50 (U/L) Layo dye Performing Location [facility] [place] [address]
--- OUTSIDE RECORDS SUMMARY | 2024-03-20 16:16 | External Medical Summary | Summary of Care ---
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 Name Role Phone Francisco Cisse MD Primary Care Provider + Reason for Visit * Reason Onset Date Comments Hospital Follow-Up Hospital disc harge follow up - pt states he still has blood in his urine, has been off and on over the past year Hospital Follow-Up 02/26/2024 Encounter Details Date Type Department Care Team (Late st Contact Info) Description 02/26/2024 11:20 AM EDT Office Visit General Internal Medicine [place] [address] [place] [address] [address] Francisco Cisse MD [address] [facility] [place] [address] Hospital discharge follow-up*; Radiation proctitis; Radiation cystitis; Other closed fracture of twelfth thoracic vertebra, sequela; Type 2 diabetes mellitus with stage 3a chronic kidney disease, with long-term current use of insulin (HCC); Fall, initial encounter; Acute UTI; Chest pain, unspecified type; Acute bilateral low back pain with left-sided sciatica; Mid back pain; Liver cell carcinoma (HCC) Allergies No known [...] already had his shot last month at [facility] and Mckinley Cobian [...] Sign Reading Time Taken Comments Blood Pressure 124/54 02/26/2024 11:12 AM EDT Pulse 71 02/26/2024 11:12 AM EDT Temperature 36.8 C (98.2 F) 02/26/2024 1 1:12 AM EDT Respiratory Rate - - Oxygen Saturation 98% 02/26/2024 11: 12 AM EDT Inhaled Oxygen Concentration - - Weight 84.3 kg (185 lb 14.4 oz) 024 11:12 AM EDT Height 177.8 cm (5' 10") 02/26/2024 11: 12 AM EDT Body Mass Index 26.67 02/26/2024 11:12 AM EDT documented in this encounter Functional [...] Progress Notes * Francisco Cisse MD - 02/26/2024 11:39 AM EDT Chief Complaint Patient presents with Hospital Follow-Up Hospital discharge follow up - pt states he still has blood in his urine, has been off and on over the past year Hospital Follow-Up SUBJECTIVE: Luis Hale is a 73 year old male with PMH as below who presents for hospital follow up. Admitted to [facility] 02/19-02/21/24 for ongoing hematuria and anemia in the setting of radiation cystitis, proctitis. Has seen urology for this as well outpatient and considering hyperbaric oxygen therapy, needs pulm clearance first which he is having tomorrow. He notes was seen, given I unit prbc, saw urology whosaid follow up as outpatient, and also given abx for uti. Still with some blood in urine, hopeful to see hyperbaric oxygen therapy soon. He notes doesn't want a mendoza which he would need for urologicprocedure as it was very uncomfortable is able to make urine still. No fevers. No n/v/d, is moving b owels. Notes chronic chest pain for MANY years (4-5 or more), happens occasionally at night, when lays flat, feels in muscle. Has seen cardiology, told not cardiac. Is not exertional, during the day or when walking. Did fall off couch 3-4 weeks ago, no pain at first but now has mid back and lower back pain to left leg. Tylenol helps a little. Patient Active Problem List Diagnosis Code Allergic [...] C61 Abnormal cystoscopy R39.9 Hematuria, gross R31.0 Current Outpatient Medications Medication Sig Dispense Refill Tylenol 325 MG Oral Capsule (Acetaminophen) Take 650 mg by mouth every 8 hours as needed for Pain (fever). BD Pen Needle Elizabeth 2nd Gen 32G [...] Use 2 L/min(Oxygen) as directed at bedtime. Pantoprazole Sodium 40 MG Oral Tablet Delayed Release (Protonix) Take 1 Tablet by mouth in the morning and 1 Tablet in the evening. 60 Tablet 5 Finasteride 5 MG Oral Tablet (Proscar) Take 1 Tablet by mouth in the morning. 90 Tablet 1 Allopurinol 100 MG Oral Tablet (Zyloprim) [...] SoloStar 100 UNIT/ML Subcutaneous Solution Pen-injector once. Cephalexin 500 MG Oral Capsule (Keflex) Take 1 Capsule by mouth in the morning and 1 Capsule at noon and 1 Capsule before bedtime. 6 Capsule 0 OneTouch Verio In Vitro Strip (Glucose Blood) Use to test blood sugars 3 times a day 300 Strip 5 Albumin Human 25 % Intravenous Solution 25Gm before and after paracentesis 100 mL 0 Metoclopramide HCl 5 MG Oral Tablet (Reglan) One tab as often as 3 times a day, if needed for nausea (Patient not taking: Reported on 02/26/2024) 90 Tablet 3 Zoster Vac Recomb Adjuvanted 50 MCG/0.5ML Intramuscular Suspension Reconstituted (Shingrix) Inject 0.5 mL into a large muscle now and repeat dose in 60 to 180 days (Patient not taking: Reported on 01/30/2024) 1 Each 1 amLODIPine Besylate 5 MG Oral Tablet (Norvasc) Take 0.5 Tablets by mouth in the morning. (Patient not taking: Reported on 01/30/2024) traMADol HCl 50 MG Oral Tablet (Ultram) Take 1 Tablet by mouth every 6 hours as needed for Pain, Severe. (Patient not taking: Reported on 02/26/2024) 10 Tablet 0 Current Facility-Administered Medications Medication Dose Route Frequency Provider Last Rate Last Admin Albuterol Sulfate (Proventil) (2.5 MG/3ML) 0.083% inhalation solution 2.5 mg 2.5 mg Nebulizer PRN JenningsWilliam PA-C Albuterol Sulfate (Proventil) (5 MG/ML) 0.5% *conc* inhalation solution 2.5 mg 2.5 mg Nebulizer PRNHWilliam turnre PA-C 2.5 mg at 03/20/23 0913 Review of patient's allergies indicates: No Known Allergies Health Maintenance Due Topic Date Due Depression Screening 05/03/2022 Zoster Vaccines (2 of 2) 12/13/2023 Diabetic Eye Exam 01/17/2024 CKD PHOS USE SMARTSET 55358 01/28/2024 Diabetic Foot Exam 03/06/2024 ROS: CONSTITUTIONAL: No fevers, sweats, or chills EYE: No recent significant change in vision and No eye pain, redness, discharge EARS: No ear pain, No drainage, No tinnitus or vertigo, and No recent change in hearing PULMONARY: No cough, sputum, or hemoptysis, No wheezing, No rales, No shortness of breath, and No recent change in breathing CARDIOVASCULAR: No shortness of breath, No dyspnea on exertion, No orthopnea, No paroxysmal nocturnal dyspnea, No edema, No palpitations, and No syncope ALL OTHER SYSTEMS NEGATIVE [...] No Self-Exams Not Asked 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 CATARACT SURGERY,COMPLEX Left 04/23/2023 LEFT EXTRACAPSULAR CATARACT REMOVAL COMPLEX WITH IOL performed by Cody Gonzalez DO at OR [facility] COLONOSCOPY 08/27/2005 lock haven/hemorrhoids non internal COLONOSCOPY, DIAGNOSTIC (RECTUM) 04/16/2013 COLONOSCOPY FLEXIBLE PROXIMAL DIAGNOSTIC performed by Salvador Lopez MD at ENDOSCOPY [facility], adenomatous polyps repeat colonoscopy in 3 years COLONOSCOPY, DIAGNOSTIC (RECTUM) 05/03/2016 adenomatous polyps, diverticulosis, repeat 5 yrs/COLONOSCOPY FLEXIBLE PROXIMAL DIAGNOSTIC performedby Salvador Lopez MD at ENDOSCOPY [facility] COLONOSCOPY, DIAGNOSTIC (RECTUM) 07/19/2020 adenomatous & hyperplastic polyps, diverticulosis, repeat 3 yrs / [facility] COLONOSCOPY, DIAGNOSTIC (RECTUM) 11/30/2021 mild XRT proctitis, diverticulosis / COLONOSCOPY FLEXIBLE PROXIMAL DIAGNOSTIC performed by Barbara March DO at ENDOSCOPY [facility] COLONOSCOPY, DIAGNOSTIC (RECTUM) 02/01/2022 Mild XRT proctitis / COLONOSCOPY FLEXIBLE PROXIMAL DIAGNOSTIC performed by Barbara March DO at ENDOSCOPY [facility] COLONOSCOPY, DIAGNOSTIC (RECTUM) N/A 11/07/2022 poor prep/diverticulosis sigmoid colon/rectal angioectasias consistent with radiation proctopathy/Colonoscopy/[place] COLONOSCOPY, DIAGNOSTIC (RECTUM) N/A 08/09/2023 poor prep/moderate diverticulosis/hemorrhoids/biopsies show adenomatous and hyperplastic polyps/recall 1 years/Colonoscopy/[place] ABDOMEN W IV AND W ORAL CONTRAST 01/10/2010 CYSTOSCOPY/TREAT MED BLADDER TUMOR N/A 01/30/2024 CYSTOURETHROSCOPY WITH FULGURATION MEDIUM BLADDER TUMOR performed by Frank Peraza MD at [facility] EGD, FLEXIBLE, DIAGNOSTIC 07/22/2014 GE varices oozing blood, gastric polyp/ESOPHAGOGASTRODUODENOSCOPY (EGD), FLEXIBLE, TRANSORAL, DIAGNOSTIC performed by Juaquin Arrington MD at ENDOSCOPY [facility] EGD, FLEXIBLE, DIAGNOSTIC 07/23/2014 ESOPHAGOGASTRODUODENOSCOPY (EGD), FLEXIBLE, TRANSORAL, DIAGNOSTIC performed by Sophie Merino MD at [facility] EGD, FLEXIBLE, DIAGNOSTIC 06/02/2019 eso & gastric varices, gastric polyps/ESOPHAGOGASTRODUODENOSCOPY (EGD), FLEXIBLE, TRANSORAL, DIAGNOSTIC performed by Salvador Lopez MD at ENDOSCOPY [facility] EGD, FLEXIBLE, DIAGNOSTIC 03/25/2020 portal hypertensive gastropathy, esophageal varices / INPT [facility] EGD, FLEXIBLE, DIAGNOSTIC 07/19/2020 eso varices, portal hypertensive gastropathy, repeat 3 mo / [facility] EGD, FLEXIBLE, DIAGNOSTIC 10/25/2020 Portal hypertensive gastropathy, eso varices / [facility] EGD, FLEXIBLE, DIAGNOSTIC 08/202222 Grade I esophageal varices / [facility] EGD, FLEXIBLE, DIAGNOSTIC N/A 09/11/2022 grade II esophageal varices/gastric antral vascular ectasia, treated with APC/repeat 3 months/EGD/[place] EGD, FLEXIBLE, DIAGNOSTIC N/A 11/07/2022 grade III esophageal varices, banded/gastric antral vascular ectasia/repeat 2 months/EGD/[place] EGD, FLEXIBLE, DIAGNOSTIC N/A 02/01/2023 [facility]< egd. / single G2 varix, banded and varices eradicated / no specimens collected / egd in 1 to 2 months / EGD, FLEXIBLE, DIAGNOSTIC N/A 08/09/2023 portal hypertensive gastropathy/repeat 1 year/EGD/[place] EGD, FLEXIBLE, DIAGNOSTIC 05/22/2023 GAVE, repeat 4-6 wks / [facility] IR CANCER THERASPHERE EMBOLIZATION 03/28/2022 IR EMBOLIZATION Left 04/18/2021 IMAGING SUPERVISION & INTERPRETATION TRANSCATHETER THERAPY, EMBOLIZATION performed by Kevin Lim DO at OR [facility] IR EMBOLIZATION ARTERIAL NON HEMMORHAGE Left 02/21/2022 EMBOLIZATION ARTERIAL; SUPERVISION & INTERPRETATION performed by Kevin Lim DO at OR [facility] IR EMBOLIZATION ARTERIAL NON HEMMORHAGE Left 06/05/2022 EMBOLIZATION ARTERIAL; SUPERVISION & INTERPRETATION performed by Kevin Lim DO at OR [facility] IR VENOUS TIPS 10/07/2020 REMOVAL OF TONSILS, UNDER AGE 12 age 6-7 Tonsils Removal,<12 Y/O SIGMOIDOSCOPY, DIAGNOSTIC 04/12/2022 radiation proctitis, diverticulosis / [facility] TIPS, REVISION N/A 01/24/2021 REVISION TRANSVENOUS INTRAHEPATIC PORTOSYSTEMIC SHUNT performed by Kevin Lim DO at OR [facility] TIPS, REVISION Right 10/19/2022 REVISION TRANSVENOUS INTRAHEPATIC PORTOSYSTEMIC SHUNT performed by Howie Valdovinos MD at OR [facility] TIPS, REVISION Right 02/20/2023 REVISION TRANSVENOUS INTRAHEPATIC PORTOSYSTEMIC SHUNT performed by Kevin Lim DO at OR [facility] Family History Problem Relation Age of Onset [...] Heart disease Brother Other (Other) Brother Agent [place] exposure Cancer Grandmother (Paternal) unkown, in 80s Neurological Disorder Daughter epilepsy No Known Problems Daughter Cervical Cancer Daughter Uterine cancer Daughter Thyroid cancer Daughter Diabetes Other Hypertension Other Heart Disorder Other Stroke Other OBJECTIVE: PHYSICAL EXAM: BP 124/54 | Pulse 71 | Temp 36.8 C (98.2 F) (Tympanic) | Ht 1.778 m (5' 10") | Wt 84.3 kg (185 lb 14.4 oz) | SpO2 98% | BMI 26.67 kg/m | BSA 2.04 m General: alert, healthy, and no distress Head: Normocephalic, No masses, lesions, tenderness or abnormalities Eye Exam: conjunctiva are pink and non-injected, sclera clear Heart: regular rate & rhythm, no murmur, no gallops, PMI non-displaced, S-1 normal, and S-2 normal Lungs: normal respiratory rate and rhythm, lungs clear to auscultation Back: mid back pain to palpation, no masses felt Neuro: stands on own, walks with walker Psych: normal affect, no flight of ideas or tangential thought, good eye contact, no pressured speech D/C Summary: 73-year-old male with PMH of type 2 diabetes, restrictive lung disease, hyperlipidemia, chronic gout, pulmonary hypertension, gout, esophageal varices, portal vein thrombosis, prolonged QT, mild mitral regurgitation, aortic valve sclerosis, cirrhosis of liver status post TIPS, GERD, hepatocellular carcinoma s/p embolization, prostate cancer s/p radiation, radiation proctitis, protein calorie malnutrition, chronic kidney stage III, history of gross hematuria, acquired thrombocytopenia, iron deficiency anemia, CKD stage III, pancytopenia, psoriasis and presents with ongoing hematuria. Has been admitted in Jan and January (most recently from 02/02-) for worsening anemia in setting of hematuria, radiation proctitis and has received blood transfusions. Patient presented again on 02/12 in ED and underwent bladder irrigation with urology. 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 Primary urologist is Dr. Peraza. Due for MTU on the day of admission but decided to present to ED instead. He was managed for the following: Hematuria BPH/prostate cancer status post radiation H/o radiation cystitis Afebrile, hemodynamically stable Hemoglobin close to baseline at 7.3 (at presentation) despite chronic hematuria Removed Mendoza at home since last seen due to discomfort. see above. Transfusion 1 unit PRBCs on admitting day Appreciate urology recs - f/u w/ uro as OP. Patient reports being able to pass urine more easily, reports no lower abdominal discomfort, reports urine getting rn triage in color and clots getting smaller. Patient feels comfortable going home and would like to go home. ?UTI: pt w/ hematuria but chronic problem. UCX growing GNB, will start rocephin, follow Cx. Will change to p.o. antibiotic on discharge. Patient to follow-up with PCP office for final results of urine culture within a week time. CKD III Cr at baseline 1.22. Continue to monitor 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 Hepatocellular carcinoma status post IR embolization History GAVE/esophageal varices/portal hypertensive gastropathy/radiation proctitis/diverticulosis on endoscopy Appears euvolemic today Continue home Lasix, lactulose and Xifaxan and Protonix DM II A1c of 5.03 November 2023, repeat tomorrow Hold home agents SSI while in-patient BSG AC HS DVT Ppx: SCDs given hematuria Code status: FULL PCP: Tanna Patient is being discharged to home with following instruction at the point of discharge: Follow-up with your primary care physician within a week time and likely you will need labs CBC/CMP/magnesium/phosphorus. You are diagnosed with UTI, you will be discharged on antibiotic to complete the course. Please follow-up on the final results of urine culture with your PCP office within a week time to make sure that you are receiving appropriate antibiotic treatment. Follow-up with your nephrology as prior. Closely follow-up with your urology within a week time upon discharge. Follow up with your GI doctor as prior. You will need frequent ultrasound abdomen every few weeks time, and further evaluation for need forparacentesis based on your clinical evaluation at the time. Coordinate with your PCP office to set up the test. Take your medications as prescribed. Urine culture show E.coli and proteus sensitive to cephalosporins 02/14/24 urology Impression/Plan: 73-year-old comorbid male with extended hematuria [...] week. Patient notes he is traveling to [place] on Saturday, will plan on Saturday in [place]. I will see the patient a couple of weeks after that to check on his progress. Will also enlist the help of Wound Care for hyperbaric oxygen therapy considering his ongoing di fficulties with bleeding even prior to operation. Worrisome signs and symptoms and expected convalescence are reviewed. Patient vocalizes good understanding of the treatment plan. 12.24.23 heme: He continues to be at risk for further bleeding. I will arrange for CBC to be done on every 2 weeksbasis and receive blood transfusion whenever hemoglobin is 7 or less. Discussed with the patient about diagnosis reviewed all the available blood test result with him. After discussion he agreed to signed the consent form for the blood transfusion. ASSESSMENT: Z09 Hospital discharge follow-up (primary encounter diagnosis) K62.7 Radiation proctitis N30.40 Radiation cystitis S22.088S Other closed fracture of twelfth thoracic vertebra, sequela E11.22,N18.31,Z79.4 Type 2 diabetes mellitus with stage 3a chronic kidney disease, with long-term current use of insulin (HCC) W19.XXXA Fall, initial encounter N39.0 Acute UTI R07.9 Chest pain, unspecified type M54.42 Acute bilateral low back pain with left-sided sciatica M54.9 Mid back pain C22.0 Liver cell carcinoma (HCC) PLAN: Hospital discharge follow-up (Primary) - DISCH MED RECON CUR MED LIS As below Radiation proctitis - COMPREHENSIVE METABOLIC PANEL; Future; Expected date: 02/26/2024 - CBC WITH WBC DIFFERENTIAL; Future; Expected date: 02/26/2024 Cont to tend hemoglobin Radiation cystitis - COMPREHENSIVE METABOLIC PANEL; Future; Expected date: 02/26/2024 Appreciate urology and heme Declines mendoza/urological procedure right now, will hopefully start hyperbaric oxygen per urology soon Cont to trend labs Other closed fracture of twelfth thoracic vertebra, sequela Await x-ray given recent trauma Type 2 diabetes mellitus with stage 3a chronic kidney disease, with long-term current use of insulin (HCC) - MAGNESIUM; Future; Expected date: 02/26/2024 - PHOSPHORUS; Future; Expected date: 02/26/2024 Cont insulin Fall, initial encounter Weeks ago at home Await x-rays Acute UTI Finish abx Chest pain, unspecified type At night, has had for many years, has seen cardiology ?mskt, t/c cardiology evaul Acute bilateral low back pain with right-sided sciatica - XR L SPINE AP AND LATERAL - XR T SPINE ANY THREE VIEWS Mid back pain - XR L SPINE AP AND LATERAL - XR T SPINE ANY THREE VIEWS Liver cell carcinoma (HCC) Cont f/u gi, I sent a message to them about if IR is still needed for masses Also will f/u with them about routine/scheduled paracentesis Follow Up: Return in about 3 months (around 05/28/2024), or if symptoms worsen or fail to improve, for Labs Today. | For: Labs Today | Check-out note: Ok for private spot Francisco Cisse MD documented in this encounter Nursing Notes * Batool Tatum MED ASSIST - 02/26/2024 11:18 AM EDT Chief Complaint Patient presents with Hospital Follow-Up Hospital discharge follow up - pt states he still has blood in his urine, has been off and on over the past year documented in this encounter Plan of Treatment Upcoming Encounters Date Type Department Care Team (Late st Contact Info) Description 02/26/2024 12:10 PM EDT Laboratory Laboratory [facility] [address] [phone] [place], Lab [facility] [address] [facility] [place] [address] Radiation proctitis; Radiation cystitis; Type 2 diabetes mellitus with stage 3a chronic kidney disease, with long-term current use of insulin (HCC) 02/26/2024 12:30 PM EDT Imaging Radiology [facility] [place] [address] [place] [address] [address] Arrived 02/27/2024 10:20 AM EDT Office Visit Pulmonary Medicine, [facility] [address] [facility] [place] [id number] Jordan Stanley MD [facility] [address] [facility] [place] [address] 03/03/2024 8:40 AM EDT Laboratory Lab Mobile Phlebotomy [facility] [address] [place] [address] [facility] [address] [place] [address] 03/13/2024 2:00 PM EDT Office Visit Dermatology [facility] [address] [facility] [place] [address] Francisco Watson MD [address] [facility] [place] [address] 03/17/2024 8:40 AM EDT Laboratory Lab Mobile Phlebotomy [facility] [address] [place] [address] [facility] [address] [place] [address] 03/18/2024 11:00 AM EDT Office Visit Urology, [facility] [address] [facility] [place] [address] Frank Peraza MD [address] [address] 03/24/2024 2:30 PM EDT Office Visit Hematology/Oncology [facility] [address] [facility] [place] [id number] Ayaka Tatum CRNP [address] [place] [address] 03/30/2024 12:00 PM EDT Office Visit Family Practice [facility] [address] [facility] [place] [address] Kristen Vences DO [address] [facility] [place] [address] 03/31/2024 8:40 AM EDT Laboratory Lab Mobile Phlebotomy [facility] [address] [place] [address] [facility] [address] [place] [address] 04/07/2024 10:00 AM EDT Office Visit Gastroenterology, [facility] [address] [place] [address] Lamar Tatum CRNP [address] [place] [address] 04/14/2024 8:40 AM EDT Laboratory Lab Mobile Phlebotomy [facility] [address] [place] [address] [facility] [address] [place] [address] 04/28/2024 8:40 AM EDT Laboratory Lab Mobile Phlebot[facility] [address] [place] [address] [facility] [address] [place] [address] 05/12/2024 8:40 AM EDT Laboratory Lab Mobile Phlebot[facility] [address] [place] [address] [facility] [address] [place] [address] 05/26/2024 8:40 AM EDT Laboratory Lab Mobile Phlebotomy [facility] [address] [place] [address] [facility], [facility] [address] [place] [address] 06/09/2024 8:40 AM EDT Laboratory Lab Mobile Phlebot[facility] [address] [place] [address] [facility] [address] [place] [address] 06/23/2024 8:40 AM EDT Laboratory Lab Mobile Phlebotomy [facility] [address] [place] [address] G[facility], [facility] [address] [place] [address] 07/07/2024 8:40 AM EDT Laboratory Lab Mobile Phlebotomy [facility] [address] [place] [address] G[facility], [facility] [address] [place] [address] 07/21/2024 8:40 AM EDT Laboratory Lab Mobile Phlebotomy [facility] [address] [place] [address] Gm, [facility] [address] [place] [address] 08/04/2024 8:40 AM EDT Laboratory Lab Mobile Phlebotomy [facility] [address] [place] [address] [facility] [address] [place] [address] 08/18/2024 8:40 AM EDT Laboratory Lab Mobile Phlebotomy [facility] [address] [place] [address] [facility] [address] [place] [address] 08/20/2024 10:15 AM EDT Office Visit Ophthalmology, [facility] [address] [place] [address] Cody Gonzalez DO [address] [place] [address] 09/01/2024 8:40 AM EDT Laboratory Lab Mobile Phlebotomy [facility] [address] [place] [address] Gm, [facility] [address] [place] [address] 09/15/2024 8:40 AM EDT Laboratory Lab Mobile Phlebotomy [facility] [address] [place] [address] [facility] [address] [place] [address] Pending Results Name Type Priority Associated Diagnoses Date/Time COMPREHENSIVE METABOLIC PANEL Lab Routine Radiation proctitis Radiation cystitis 02/26/2024 11:46 AM EDT CBC WITH WBC DIFFERENTIAL Lab Routine Radiation proctitis 02/26/2024 11:46 AM EDT MAGNESIUM Lab Routine Type 2 diabetes mellitus with stage 3a chronic kidney disease, with long-term current use of insulin (HCC) 02/26/2024 11:46 AM EDT PHOSPHORUS Lab Routine Type 2 diabetes mellitus with stage 3a chronic kidney disease, with long-term current use of insulin (HCC) 02/26/2024 11:46 AM EDT XR L SPINE AP AND LATERAL Medical Imaging Routine Acute bilateral low back pain with left-sided sciatica Mid back pain 02/26/2024 12:03 PM EDT XR T SPINE ANY THREE VIEWS Medical Imaging Routine Acute bilateral low back pain with left-sided sciatica Mid back pain 02/26/2024 12:03 PM EDT Scheduled Orders Name Type Priority Associated Diagnoses Orde r Schedule COMPREHENSIVE METABOLIC PANEL Lab Routine Radiation proctitis Radiation cystitis Expected: 02/26/2024 (Approximate), Expires: 02/25/2025 CBC WITH WBC DIFFERENTIAL Lab Routine Radiation proctitis Expected: 02/26/2024 (Approximate), Expires: 02/25/2025 MAGNESIUM Lab Routine Type 2 diabetes mellitus with stage 3a chronic kidney disease, with long-term current use of insulin (HCC) Expected: 02/26/2024 (Approximate), Expires: 02/25/2025 PHOSPHORUS Lab Routine Type 2 diabetes mellitus with stage 3a chronic kidney disease, with long-term current use of insulin (HCC) Expected: 02/26/2024 (Approximate), Expires: 02/25/2025 Scheduled Procedures Name Priority Associated Diagnoses Date/Ti [...] Additional history exists CKD PHOS USE SMARTSET 98584 01/28/202401/03, 07/26/2022, 12/05/2021, Additional history exists Diabetic Foot Exam 03/06/2024 03/06/2023, 0 01/03/2022, 03/02/2021, Additional history exists HbA1c 05/28/2024 11/27/2023, 05/03, 01/28/2023, Additional history exists Albumin/Creatinine Ratio 07/12/2024 023, 10/01/2022, 09/11/2021, Additional history exists COLONOSCOPY-ANNUAL AGES 18-100 08/09/2024 08/09/2023, 11/07/2022, 11/07/2022, Additional history exists GFR 08/15/2024 02/13/2024, 01/03, 01/17/2024, Additional history exists CKD HGB USE SMARTSET 19890 02/17/202502/17, 02/18/2024, 02/13/2024, Additional history exists Lipid [...] this encounter Medical Devices Implanted Type Area Homebirth Midwife Device Identifier Shelf Expiration Date Model / Serial / Lot Clareon Iol Aspheric Hydrophobic Acrylic Iol Implanted:Qty: 1 on 04/23/2023 by Cody Gonzalez DO at OR [facility] Lens Left: Eye 11/12/2025 CNA0T0 / [id number] / Viatorr Tips Endoprosthesis 8-10 Mm X 8cm / 2cm Implanted:Qty: 1 on 10/07/2020 by Go Alvarado MD at [facility] Right: Abdomen 03/03/2023 [id number] / / [id number] Description:Viatorr TIPS End oprosthesis 8-10 mm x 8cm / 2cm, Manufactored by [employer] Syr Pf 2ml Embospheres 100-300 - [id number] Implanted:Qty: 1 on 04/18/2021 by Kevin Lim DO at OR [facility] Left: Abdomen [employer] [id number] 11/25/2023 S220GH / / [id number] Lipiodol Injection - [id number] Implanted:Qty: 1 on 03/28/2022 at [facility] [employer] 03/01/2023 [id number] 01-2 / / [id number] Syr Pf 2ml Embospheres 100-300 - [id number] Implanted:Qty: 1 on 03/28/2022 at [facility] [id number] 08/31/2024 S220GH / / [id number] -[id number] Clareon Iol Aspheric Hydrophobic Acrylic Iol Implanted:Qty: 1 on 04/02/2023 by Cody Gonzalez DO at OR [facility] Right: Eye JAZMIN 11/12/2025 CNA0T0 / [id number] / documented as of this encounter Visit Diagnoses Diagnosis Hospital discharge follow-up- Primary Other follow-up examination Radiation proctitis Other specified disorder of rectum and anus Radiation cystitis Irradiation cystitis Other closed fracture of twelfth thoracic vertebra, sequela Type 2 diabetes mellitus with stage 3a chronic kidney disease, with long-term current use of insulin (HCC) Fall, initial encounter Acute UTI Urinary tract infection, site not specified Chest pain, unspecified type Acute bilateral low back pain with left-sided sciatica Mid back pain Backache, unspecified Liver cell carcinoma (HCC) Malignant neoplasm of liver, primary Radiation proctitis Other specified disorder of rectum and anus Radiation cystitis Irradiation cystitis Type 2 diabetes mellitus with stage 3a chronic kidney disease, with long-term current use of insulin (HCC) documented in this encounter Advance Directives Documents on File Type Date Recorded 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 No Care Teams Secondary History Teacher Relationship Specialty Start Date End Date Francisco Cisse MD 200 [facility] [place] [address] PCP - General Internal Medicine 09/04/21 documented as of this encounter
--- OUTSIDE RECORDS SUMMARY | 2024-03-20 16:16 | External Medical Summary | Summary of Care ---
Author Name Unknown Organization [facility] Address [address] [facility] [address] Phone [phone] Care Team Providers Care Photo Technician Name Role Phone Francisco Cisse MD Primary Care Provider + Reason for Visit * Reason Comments Outpatient Testing Encounter Details Date Type Department Care Team (Late st Contact Info) Description 02/26/2024 12:10 PM EDT Laboratory Laboratory [facility] [place] [address] [place] [address] [place], [address] [place] [address] Radiation proctitis; Radiation cystitis; Type 2 diabetes mellitus with stage 3a chronic kidney disease, with long-term current use of insulin ([facility]) Allergies No known active allergiesdocumented as of [...] mRNA, LNP-s, No Pre serve, 2-Dose Series (Innovaci) 03/08/2021,02/15/2021 HepA Inact/HepB Recomb>=18yrs old 12/04/2019,04/2019,05/20/2019 11/19/2019 [...] Team (Late st Contact Info) Description 02/26/2024 12:30 PM EDT Imaging Radiology [facility] [address] [place] [address] Arrived 02/27/2024 10:20 AM EDT Office Visit Pulmonary Medicine, [facility] 132 [facility] [place] [address] Jordan Stanley MD [address] [facility] [address] 03/03/2024 8:40 AM EDT Laboratory Lab [facility] [address] [place] [address] [facility] Draw [address] [place] [address] 03/13/2024 2:00 PM EDT Office Visit Dermatology [facility] 200 [facility] [place] [address] Francisco Watson MD 200 [facility] [place] [address] 03/17/2024 8:40 AM EDT Laboratory Lab [facility] [address] [place] [address] [facility] Mobile Home Draw [address] [place] [address] 03/18/2024 11:00 AM EDT Office Visit Urology, [facility] [address] [place] [address] Frank Peraza MD [address] [place] [address] 03/24/2024 2:30 PM EDT Office Visit Hematology/Oncology [facility] 200 [facility] [place] [phone] Ayaka Tatum CRNP [address] [place] [address] 03/30/2024 12:00 PM EDT Office Visit Family Practice [facility] 132 [facility] [place] [address] Kristen Vences, 132 [facility] [place] [address] 03/31/2024 8:40 AM EDT Laboratory Lab [facility] [address] [place] [address] Gm, [facility] Mobile [facility] Draw [address] [place] [address] 04/07/2024 10:00 AM EDT Office Visit Gastroenterology, [facility] [address] [place] [address] Lamar Tatum CRNP [address] [place] [address] 04/14/2024 8:40 AM EDT Laboratory Lab [facility] Ph[facility] [address] [place] [address] [facility], [facility] Mobile Home Draw [address] [place] [address] 04/28/2024 8:40 AM EDT Laboratory Lab Mobile Phlebot[facility] [address] [place] [address] [facility], [facility] Home Draw [address] [place] [address] 05/12/2024 8:40 AM EDT Laboratory Lab Mobile Phlebot[facility] [address] [place] [address] [facility], [facility] Draw [address] [place] [address] 05/26/2024 8:40 AM EDT Laboratory Lab [facility] Phlebot[facility] [address] [place] [address] [facility], [facility] Draw [address] [place] [address] 06/09/2024 8:40 AM EDT Laboratory Lab Mobile Phlebot[facility] [address] [place] [address] [facility], [facility] Draw [address] [place] [address] 06/23/2024 8:40 AM EDT Laboratory Lab Mobile Phlebotomy [facility] [address] [place] [address] [facility]mc, [facility] Draw [address] [place] [address] 07/07/2024 8:40 AM EDT Laboratory Lab Mobile Phlebotomy [facility] [address] [place] [address] [facility], [facility] Mobile [facility] Draw [address] [place] [address] 07/21/2024 8:40 AM EDT Laboratory Lab Mobile Phlebotomy C [address] [place] [address] [facility], [facility] Draw [address] [place] [address] 08/04/2024 8:40 AM EDT Laboratory Lab [facility] [address] [place] [address] Gm, Gml Mobile Home Draw [address] [place] [address] 08/18/2024 8:40 AM EDT Laboratory Lab [facility] [address] [place] [address] Gm, Gml Mobile Home Draw [address] [place] [address] 08/20/2024 10:15 AM EDT Office Visit Ophthalmology, [address] [address] Cody Gonzalez, DO [address] [place] [address] 09/01/2024 8:40 AM EDT Laboratory Lab [facility] [address] [place] [address] Gm, Gml Mobile Home Draw [address] [place] [address] 09/15/2024 8:40 AM EDT Laboratory Lab [facility] [address] [place] [address] [facility] Draw [address] [place] [address] Pending Results Name Type Priority Associated Diagnoses Date /Time COMPREHENSIVE METABOLIC PANEL Lab Routine Radiation proctitis [...] of insulin (HCC) 02/26/2024 11:46 AM EDT CBC Lab Routine Radiation proctitis 02/26/2024 11:46 AM EDT DIFFERENTIAL, AUTOMATED Lab Routine Radiation proctitis 02/26/2024 11:46 AM EDT Scheduled Procedures Name Priority Associated [...] Additional history exists CKD PHOS USE SMARTSET 86330 01/28/202401/03, 07/26/2022, 12/05/2021, Additional history exists Diabetic Foot Exam 03/06/2024 03/06/2023, 0 01/03/2022, 03/02/2021, Additional history exists HbA1c 05/28/2024 11/27/2023, 05/03, 01/28/2023, Additional history exists Albumin/Creatinine Ratio 07/12/2024 023, 10/01/2022, 09/11/2021, Additional history exists COLONOSCOPY-ANNUAL AGES 18-100 08/09/2024 08/09/2023, 11/07/2022, 11/07/2022, Additional history exists GFR 08/15/2024 02/13/2024, 01/03, 01/17/2024, Additional history exists CKD HGB USE SMARTSET 08088 02/17/202502/17, 02/18/2024, 02/13/2024, Additional history exists Lipid [...] this encounter Medical Devices Implanted Type Area Costing Manager Device Identifier Shelf Expiration Date Model / Serial / Lot Clareon Iol Aspheric Hydrophobic Acrylic Iol Implanted:Qty: 1 on 04/23/2023 by Cody Gonzalez DO at OR [facility] Lens Left: Eye 11/12/2025 CNA0T0 / [id number] / Viatorr Tips Endoprosthesis 8-10 Mm X 8cm / 2cm Implanted:Qty: 1 on 10/07/2020 by Go Alvarado MD at [facility] Right: Abdomen 03/03/2023 [id number] / / [id number] Description:Viatorr TIPS End oprosthesis 8-10 mm x 8cm / 2cm, Manufactored by [employer] Syr Pf 2ml Embospheres 100-300 - [id number] Implanted:Qty: 1 on 04/18/2021 by Kevin Lim DO at OR [facility] Left: Abdomen [employer] [id number] 11/25/2023 S220GH / / [id number] -5 Lipiodol Injection - [id number] Implanted:Qty: 1 on 03/28/2022 at [facility] [employer] 03/01/2023 07143-44 01-2 / / [id number] Syr Pf 2ml Embospheres 100-300 - [id number] Implanted:Qty: 1 on 03/28/2022 at [facility] [employer] [id number] 08/31/2024 S220GH / / [id number] -5 Clareon Iol Aspheric Hydrophobic Acrylic Iol Implanted:Qty: 1 on 04/02/2023 by Cody Gonzalez DO at OR [facility] Right: Eye JAZMIN 11/12/2025 CNA0T0 / [id number] / documented as of this encounter Visit Diagnoses Diagnosis Radiation proctitis Other specified disorder of rectum and anus Radiation cystitis Irradiation cystitis Type 2 diabetes mellitus with stage 3a chronic kidney disease, with long-term current use of insulin (HCC) documented in this encounter Advance Directives Documents on File Type Date Recorded 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 No Care Teams Photo Technician Relationship Specialty Start Date End Date Francisco Cisse MD 200 [place] [address] PCP - General Internal Medicine 09/04/21 documented as of this encounter
--- OUTSIDE RECORDS SUMMARY | 2024-03-20 16:16 | External Medical Summary ---
Author Name Unknown Address Unknown Organization K09:[facility] [place] [address] Laboratory Report Ordering Provider Test Date Status SHREYA SEGUNDO 02/26/2024 11:46:45 Final Observation Date Value Abnormality Reference (Units ) Status Magnesium 02/26/2024 11:46:45 1.7 1.5-2.6 (m g/dL) Final Performing Location [facility] [place] [address]
--- OUTSIDE RECORDS SUMMARY | 2024-03-20 16:16 | External Medical Summary | Summary of Care ---
Author Name Unknown Organization [facility] Address 100 [place] [address] Phone [phone] Care Team Providers Care Stick Roller Name Role Phone Francisco Cisse MD Primary Care Provider + Reason for Visit * Reason Onset Date Comments Test Results Lab 02/18/2024 Encounter Details Date Type Department Care Team (Late st Contact Info) Description 02/18/2024 Telephone Hematology/Oncology [facility] 200 [facility] [address] Ayaka Tatum CRNP 400 [facility] [place] [address] Test Results Lab Allergies No [...] less than 7.0% ([facility]) Use to test blood sugars 3 [...] mRNA, LNP-s, No Pre serve, 2-Dose Series (Exhbit) 03/08/2021,02/15/2021 HepA Inact/HepB Recomb>=18yrs old 12/04/2019,04/2019,05/20/2019 11/19/2019 PPD 06/18/2017, 3,01/09/2012,06/2011 Pneumococcal Conjugate Vacc, 13 Valent (Prevnar) 05/01/2017 Pneumococcal Polysaccharide PPV23 (Pneumovax) 08/28/2022,10/25/2015,07/14/2012 Season Influenza, Quad, PF, Adjuvanted, 65+ Yrs, IM (FLUAD) 10/07/2020(Deferred: Patient Refused - pt says he already had his shot last month at [facility] Handy Lyons and Mckinley Cobian [...] 02/21/2024 9:11 AM EDT LAMONT Norton from [place] wound [facility] returned call to inform our office that they have received the records and his case is under review. There is a delay because the patients health condition may disqualify him as a appropriate candidate for hypobaric therapy the wound clinic is still working on the referral. * Telephone Encounter - Josephine Murphy RN - 02/19/2024 12:23 PM EDT [facility] hospitalist will consent patient for transfusion- updated [facility]. * Telephone Encounter - Kaylie Glass LPN - 02/19/2024 11:28 AM EDT Spoke with patient. States [place] [facility] center is to call him [...] a transfusion tomorrow. His son would prefer gas worker appt Patient to receive 1 unit PRBC for hgb 7.0. Called [facility] blood bank. No issues with having blood available pending changes to T&S. Called [facility] ([place]) and central scheduling ([place]). Patient [...] scheduling 1 unit PRBC transfusion at [facility]. With T&S please fax order for patient to have ferritin and iron screen drawn prior to transfusion. Orders placed. Repeat CBCd in one week. documented in this encounter Plan of Treatment Upcoming Encounters Date Type Department Care Team (Late st Contact Info) Description 02/26/2024 11:20 AM EDT Office Visit General Internal Medicine [facility] [place] [address] [place] [address] Francisco Cisse MD 200 [facility] [place] [address] 02/27/2024 10:20 AM EDT Office Visit Pulmonary Medicine, [facility] 132 [place] [address] Jordan Stanley MD [address] [place] [address] 03/03/2024 8:40 AM EDT Laboratory Lab Mobile Phlebotomy [facility] [address] [place] [address] [facility], [facility] Mobile Home Draw [address] [place] [address] 03/13/2024 2:00 PM EDT Office Visit Dermatology [facility] 200 [facility] [place] [address] Francisco Watson MD 200 [facility] [place] [address] 03/17/2024 8:40 AM EDT Laboratory Lab Mobile Phlebotomy [facility] [address] [place] [address] [facility], [facility] Mobile Home Draw [address] [place] [address] 03/18/2024 11:00 AM EDT Office Visit Urology, [facility] 132 [place] [address] Frank Peraza MD [address] [place] [address] [place] [address] 03/24/2024 2:30 PM EDT Office Visit Hematology/Oncology [facility] 200 [facility] [place] [phone] Ayaka Tatum CRNP [address] [place] [address] [place] [address] 03/30/2024 12:00 PM EDT Office Visit Family Practice [facility] [address] [place] [address] Kristen Vences DO 132 [place] [address] 03/31/2024 8:40 AM EDT Laboratory Lab Mobile Phlebotomy [facility] [address] [place] [address] [facility] [address] [place] [address] 04/07/2024 10:00 AM EDT Office Visit Gastroenterology, [facility] [address] [place] [address] Lamar Tatum CRNP [address] [place] [address] 04/14/2024 8:40 AM EDT Laboratory Lab Mobile Phlebotomy [facility] [address] [place] [address] [facility], [facility] Mobile Home Draw [address] [place] [address] 04/28/2024 8:40 AM EDT Laboratory Lab Mobile Phle[facility] [address] [place] [address] [facility], [facility] Mobile Home Draw [address] [place] [address] 05/12/2024 8:40 AM EDT Laboratory Lab Mobile Phlebotomy [facility] [address] [place] [address] [facility], [facility] Mobile Home Draw [address] [place] [address] 05/26/2024 8:40 AM EDT Laboratory Lab Mobile Phle[facility] [address] [place] [address] [facility], [facility] Mobile Home Draw [address] [place] [address] 06/09/2024 8:40 AM EDT Laboratory Lab Mobile Phlebot[facility] [address] [place] [address] [facility], [facility] Draw [address] [place] [address] 06/23/2024 8:40 AM EDT Laboratory Lab Mobile Phlebot[facility] [address] [place] [address] [facility], [facility] Mobile [facility] Draw [address] [place] [address] 07/07/2024 8:40 AM EDT Laboratory Lab Mobile Phlebotomy [facility] [address] [place] [address] [facility], [facility] Mobile Home Draw [address] [place] [address] 07/21/2024 8:40 AM EDT Laboratory Lab Mobile Phlebotomy [facility] [address] [place] [address] [facility], [facility] Mobile Home Draw [address] [place] [address] 08/04/2024 8:40 AM EDT Laboratory Lab Mobile Phlebot[facility] [address] [place] [address] [facility], [facility] Mobile Home Draw [address] [place] [address] 08/18/2024 8:40 AM EDT Laboratory Lab Mobile Phlebot[facility] [address] [place] [address] [facility], [facility] Mobile Home Draw [address] [place] [address] 08/20/2024 10:15 AM EDT Office Visit Ophthalmology, [facility] [address] [place] [address] Cody Gonzalez, DO [address] [facility] [address] 09/01/2024 8:40 AM EDT Laboratory Lab Mobile Phlebotomy [facility] [address] [place] [address] [facility], [facility] Mobile Home Draw [address] [place] [address] 09/15/2024 8:40 AM EDT Laboratory Lab Mobile Phlebotomy [facility] [address] [place], [place] [address] [facility], [facility] Mobile Home Draw [address] [place] [address] Scheduled Orders Name Type Priority Associated Diagnoses [...] Additional history exists CKD PHOS USE SMARTSET 19998 01/28/202401/03, 07/26/2022, 12/05/2021, Additional history exists Diabetic Foot Exam 03/06/2024 03/06/2023, 0 01/03/2022, 03/02/2021, Additional history exists HbA1c 05/28/2024 11/27/2023, 05/03, 01/28/2023, Additional history exists Albumin/Creatinine Ratio 07/12/2024 023, 10/01/2022, 09/11/2021, Additional history exists COLONOSCOPY-ANNUAL AGES 18-100 08/09/2024 08/09/2023, 11/07/2022, 11/07/2022, Additional history exists GFR 08/15/2024 02/13/2024, 01/03, 01/17/2024, Additional history exists CKD HGB USE SMARTSET 04894 02/17/202502/17, 02/18/2024, 02/13/2024, Additional history exists Lipid [...] this encounter Medical Devices Implanted Type Area Swiss Machinist Device Identifier Shelf Expiration Date Model / Serial / Lot Clareon Iol Aspheric Hydrophobic Acrylic Iol Implanted:Qty: 1 on 04/23/2023 by Cody Gonzalez DO at OR [facility] Lens Left: Eye 11/12/2025 CNA0T0 / [id number] / Viatorr Tips Endoprosthesis 8-10 Mm X 8cm / 2cm Implanted:Qty: 1 on 10/07/2020 by Go Alvarado MD at [facility] Right: Abdomen 03/03/2023 [id number] / / [id number] Description:Viatorr TIPS End oprosthesis 8-10 mm x 8cm / 2cm, Manufactored by [employer] Syr Pf 2ml Embospheres 100-300 - [id number] Implanted:Qty: 1 on 04/18/2021 by Kevin Lim DO at OR [facility] Left: Abdomen [employer] [id number] 11/25/2023 S220GH / / [id number] -[id number] Lipiodol Injection - [id number] Implanted:Qty: 1 on 03/28/2022 at [facility] [employer] 03/01/2023 13222-37 01-2 / / [id number] Syr Pf 2ml Embospheres 100-300 - [id number] Implanted:Qty: 1 on 03/28/2022 at [facility] [employer] [id number] 08/31/2024 S220GH / / [id number] -5 Clareon Iol Aspheric Hydrophobic Acrylic Iol Implanted:Qty: 1 on 04/02/2023 by Cody Gonzalez DO at OR 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 No Care Teams Stick Roller Relationship Specialty Start Date End Date Francisco Cisse MD [address] [place] [address] PCP - General Internal Medicine 09/04/21 documented as of this encounter
--- OUTSIDE RECORDS SUMMARY | 2024-03-20 16:17 | External Medical Summary | Summary of Care ---
Author Name Unknown Organization [facility] Address [address] [place] [address] Phone [phone] Care Team Providers Care Repair Service Dispatcher Name Role Phone Francisco Cisse MD Primary Care Provider + Reason for Visit * Reason Onset Date Comments Test Results Lab 02/18/2024 Encounter Details Date Type Department Care Team (Late st Contact Info) Description 02/18/2024 Telephone Hematology/Oncology [facility] [address] [facility] [place] [address] Ayaka Tatum CRNP [address] [facility] [place] [address] Test Results Lab Allergies No known active allergiesdocumented as of this encounter (statuses as of 02/24/2024) Medications Medication Sig Dispensed Refills Start Date [...] as of this encounter (statuses as of 02/24/2024) Active Problems Problem Noted Date Diagnosed Date [...] as of this encounter (statuses as of 02/24/2024) Resolved Problems Problem Noted Date Diagnosed Date [...] as of this encounter (statuses as of 02/24/2024) Immunizations Name Administration Dates Next Due COVID-19 mRNA, LNP-s, No Pre serve, 2-Dose Series (Zenput) 03/08/2021,02/15/2021 HepA Inact/HepB Recomb>=18yrs old 12/04/2019,04/2019,05/20/2019 11/19/2019 PPD 06/18/2017, 3,01/09/2012,06/2011 Pneumococcal Conjugate Vacc, 13 Valent (Prevnar) 05/01/2017 Pneumococcal Polysaccharide PPV23 (Pneumovax) 08/28/2022,10/25/2015,07/14/2012 Season Influenza, Quad, PF, Adjuvanted, 65+ Yrs, IM (FLUAD) 10/07/2020(Deferred: Patient Refused - pt says he already had his shot last month at [facility] [place] and [...] 02/21/2024 9:11 AM EDT LAMONT Norton from [place] [facility] returned call to inform our office that they have received the records and his case is under review. There is a delay because the patients health condition may disqualify him as a appropriate candidate for hypobaric therapy the wound clinic is still working on the referral. * Telephone Encounter - Josephine Murphy RN - 02/19/2024 12:[address] [facility] hospitalist will consent patient for transfusion- updated MTU. * Telephone Encounter - Kaylie Glass LPN - 02/19/2024 11:28 AM EDT Spoke with patient. States [facility] is to call him [...] a transfusion tomorrow. His son would prefer gang hemstitching machine operator appt Patient to receive 1 unit PRBC for hgb 7.0. Called [facility] blood bank. No issues with having blood available pending changes to T&S. Called [facility] MTU ([place]) and central scheduling ([place]). [...] scheduling [address] [facility] MTU. With T&S please fax order for patient to have ferritin and iron screen drawn prior to transfusion. Orders placed. Repeat CBCd in one week. documented in this encounter Plan of Treatment Upcoming Encounters Date Type Department Care Team (Late st Contact Info) Description 02/24/2024 10:45 AM EDT Imaging Radiology [place] [facility] [facility] [place] [address] [facility] [place] [address] 02/26/2024 11:20 AM EDT Office Visit General Internal Medicine [facility] [place] [address] [place] [address] Francisco Cisse MD 200 [facility] [place] [address] 03/03/2024 8:40 AM EDT Laboratory Lab Mobile Phlebotomy [facility] [address] [place] [address] [facility] Mobile Home Draw [address] [place] [address] 03/13/2024 2:00 PM EDT Office Visit Dermatology [facility] 200 [facility] [place] [address] Francisco Watson MD 200 [facility] [place] [address] 03/17/2024 8:40 AM EDT Laboratory Lab Mobile Phlebotomy [facility] [address] [place] [address] [facility] [place] Mobile Home Draw [address] [place] [address] 03/18/2024 11:00 AM EDT Office Visit Urology, [facility] [address] [place] [address] Frank Peraza MD [address] [place] [address] 03/24/2024 2:30 PM EDT Office Visit Hematology/Oncology [facility] 200 [facility] [place] [phone] Ayaka Tatum CRNP [address] [place] [address] [place] [address] 03/30/2024 12:00 PM EDT Office Visit Family Practice [facility] 132 [place] [address] Kristen Vences DO 132 [facility] [address] 03/31/2024 8:40 AM EDT Laboratory Lab Mobile Phlebotomy [facility] [address] [place] [address] [facility] Mobile Home Draw [address] [place] [address] 04/07/2024 10:00 AM EDT Office Visit Gastroenterology, [facility] [address] [place] [address] Lamar Tatum CRNP [address] [place] [address] 04/14/2024 8:40 AM EDT Laboratory Lab Mobile Phlebotomy [facility] [address] [place] [address] [facility] Home Draw [address] [place] [address] 04/28/2024 8:40 AM EDT Laboratory Lab Mobile Phlebotomy [facility] [address] [place] [address] [facility] Home Draw [address] [place] [address] 05/12/2024 8:40 AM EDT Laboratory Lab Mobile Phlebotomy [facility] [address] [place] [address] [facility] Home Draw [address] [place] [address] 05/26/2024 8:40 AM EDT Laboratory Lab Mobile Phlebotomy [facility] [address] [place] [address] [facility] Draw [address] [place] [address] 06/09/2024 8:40 AM EDT Laboratory Lab Mobile Phlebotomy [facility] [address] [place] [address] [facility] Draw [address] [place] [address] 06/23/2024 8:40 AM EDT Laboratory Lab Mobile Phlebotomy [facility] [address] [place] [address] [facility] Home Draw [address] [place] [address] 07/07/2024 8:40 AM EDT Laboratory Lab Mobile Phlebotomy [facility] [address] [place] [address] [facility] Draw [address] [place] [address] 07/21/2024 8:40 AM EDT Laboratory Lab Mobile Phlebotomy [facility] [address] [place] [address] [facility] Draw [address] [place] [address] 08/04/2024 8:40 AM EDT Laboratory Lab Mobile Phlebotomy [facility] [address] [place] [address] [facility] Home Draw [address] [place] [address] 08/18/2024 8:40 AM EDT Laboratory Lab Mobile Phlebotomy [facility] [address] [place] [address] [facility] Home Draw [address] [place] [address] 08/20/2024 10:15 AM EDT Office Visit Ophthalmology, [facility] 132 [facility] [place] [address] [facility] [place] [address] 09/01/2024 8:40 AM EDT Laboratory Lab Mobile Phlebotomy [facility] [address] [place] [address] [facility] Mobile Home Draw [address] [place] [address] 09/15/2024 8:40 AM EDT Laboratory Lab Mobile Phlebotomy [facility] [address] [place] [address] [facility] [place], [facility] Mobile Home Draw [address] [place] [address] Scheduled Orders Name Type Priority Associated Diagnoses [...] Additional history exists CKD PHOS USE SMARTSET 39366 01/28/202401/03, 07/26/2022, 12/05/2021, Additional history exists Diabetic Foot Exam 03/06/2024 03/06/2023, 0 01/03/2022, 03/02/2021, Additional history exists HbA1c 05/28/2024 11/27/2023, 05/03, 01/28/2023, Additional history exists Albumin/Creatinine Ratio 07/12/2024 023, 10/01/2022, 09/11/2021, Additional history exists COLONOSCOPY-ANNUAL AGES 18-100 08/09/2024 08/09/2023, 11/07/2022, 11/07/2022, Additional history exists GFR 08/15/2024 02/13/2024, 01/03, 01/17/2024, Additional history exists CKD HGB USE SMARTSET 93255 02/17/202502/17, 02/18/2024, 02/13/2024, Additional history exists Lipid [...] this encounter Medical Devices Implanted Type Area Aircraft Sales Representative Device Identifier Shelf Expiration Date Model / Serial / Lot Clareon Iol Aspheric Hydrophobic Acrylic Iol Implanted:Qty: 1 on 04/23/2023 by Cody Gonzalez DO at OR [facility] Lens Left: Eye 11/12/2025 CNA0T0 / [id number] / Viatorr Tips Endoprosthesis 8-10 Mm X 8cm / 2cm Implanted:Qty: 1 on 10/07/2020 by Go Alvarado MD at [facility] Right: Abdomen 03/03/2023 [id number] / / [id number] Description:Viatorr TIPS End oprosthesis 8-10 mm x 8cm / 2cm, Manufactored by [employer] Syr Pf 2ml Embospheres 100-300 - [id number] Implanted:Qty: 1 on 04/18/2021 by Kevin Lim DO at OR [facility] Left: Abdomen [employer] [id number] 11/25/2023 S220GH / / [id number] Lipiodol Injection - [id number] Implanted:Qty: 1 on 03/28/2022 at [facility] [employer] 03/01/2023 [id number] 01-2 / / [id number] Syr Pf 2ml Embospheres 100-300 - [id number] Implanted:Qty: 1 on 03/28/2022 at [facility] [employer] [id number] 08/31/2024 S220GH / / [id number] -[id number] Clareon Iol Aspheric Hydrophobic Acrylic Iol Implanted:Qty: 1 on 04/02/2023 by Cody Gonzalez DO at [place] [facility] Right: Eye JAZMIN 11/12/2025 CNA0T0 / [id number] / documented as of this encounter Visit Diagnoses Diagnosis Iron deficiency anemia, unspecified iron deficiency anemia type- Primary documented in this encounter Advance Directives Documents on File Type Date Recorded Patient Nut Picker Expl anation Advance Directives and Living Will 12/11/2022 ADVANCE DIRECTIVE / LIVING WILL LIVING WILL Power of Awning Hanger Helper 12/11/2022 POWER OF A TTORNEY Latest [...] the patient have Health Care Power of Awning Hanger Helper? No Care Teams Repair Service Dispatcher Relationship Specialty Start Date End Date Francisco Cisse MD 200 [place] [address] PCP - General Internal Medicine 09/04/21 documented as of this encounter
--- OUTSIDE RECORDS SUMMARY | 2024-03-20 16:17 | External Medical Summary | Summary of Care ---
Author Name Unknown Organization [facility] Address [address] [place] [address] Phone [phone] Care Team Providers Care Horizontal Drill Operator Name Role Phone Francisco Cisse MD Primary Care Provider + Reason for Visit * Reason Onset Date Comments Advice 02/21/2024 Encounter Details Date Type Department Care Team (Late st Contact Info) Description 02/21/2024 Telephone Access Center, [place] [address] [facility] *DO NOT REMOVE THIS DEPARTMENT* [place] [address] Services, Scheduling [address] [place] [address] Advice Allergies No known active allergiesdocumented as of this encounter (statuses as of 02/23/2024) Medications Medication Sig Dispensed Refills Start Date End Date Status Tylenol 325 MG Oral Capsule (Acetaminophen) Take 650 mg by mouth every 8 hours as needed for Pain (fever). 0 Active [employer] In Vitro Strip (Glucose Blood)Indications:Ty pe [...] as of this encounter (statuses as of 02/23/2024) Active Problems Problem Noted Date Diagnosed Date [...] as of this encounter (statuses as of 02/23/2024) Resolved Problems Problem Noted Date Diagnosed Date [...] as of this encounter (statuses as of 02/23/2024) Immunizations Name Administration Dates Next Due COVID-19 mRNA, LNP-s, No Pre serve, 2-Dose Series (Angiodroid) 03/08/2021,02/15/2021 HepA Inact/HepB Recomb>=18yrs old 12/04/2019,04/2019,05/20/2019 11/19/2019 PPD 06/18/2017, 3,01/09/2012,06/2011 Pneumococcal Conjugate Vacc, 13 Valent (Prevnar) 05/01/2017 Pneumococcal Polysaccharide PPV23 (Pneumovax) 08/28/2022,10/25/2015,07/14/2012 Season Influenza, Quad, PF, Adjuvanted, 65+ Yrs, IM (FLUAD) 10/07/2020(Deferred: Patient Refused - [facility] Seasonal [...] Telephone Encounter - Lamar Tatum CRNP - 02/23/2024 8:11 PM EDT Let's end this thread. It appears that Dr. 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 See other messaging thread on 02/21/24. * Telephone Encounter - Josephine Murphy RN [...] Lamar? Any issues with this? I advised aftin - the wound nurse to contact dr jc's office and ask them, since he would be the one ordering his therapy for his hepatocellular carcinoma. * Telephone Encounter - Queta Berrios OSA - 02/21/2024 9:42 AM EDT Please call Priscilla at [phone] regarding questions regarding patient tolerance to Hyperbaric Oxygen Therapy, Unable to transfer to nurse line documented in this encounter Plan of Treatment Upcoming Encounters Date Type Department Care Team (Late st Contact Info) Description 02/24/2024 10:45 AM EDT Imaging Radiology [address] 132 [facility] [place] [address] 02/26/2024 11:20 AM EDT Office Visit General Internal Medicine [facility] [place] [address] Francisco Cisse MD [address] [facility] [place] [address] 03/03/2024 8:40 AM EDT Laboratory Lab Mobile Phlebotomy [facility] [address] [place] [address] [facility] Mobile Home Draw [address] [place] [address] 03/13/2024 2:00 PM EDT Office Visit Dermatology [facility] [address] [facility] [place] [address] Francisco Watson MD [address] [facility] [place] [address] 03/17/2024 8:40 AM EDT Laboratory Lab Mobile Phlebotomy [facility] [address] [place] [address] [facility] Mobile Home Draw [address] [place] [address] 03/18/2024 11:00 AM EDT Office Visit Urology, [facility] 132 [place] [address] Frank Peraza MD 27 [facility] [address] [place] [address] 03/24/2024 2:30 PM EDT Office Visit Hematology/Oncology [facility] 200 [place] [phone] Ayaka Tatum CRNP 400 [place] [address] 03/30/2024 12:00 PM EDT Office Visit Family Practice [facility] 132 [facility] [place] [address] Kristen Vences DO 132 [place] [address] 03/31/2024 8:40 AM EDT Laboratory Lab Mobile Phlebotomy [facility] [address] [place] [address] [facility] Mobile Home Draw [address] [place] [address] 04/07/2024 10:00 AM EDT Office Visit Gastroenterology, [facility] 132 [facility] [place] [address] Lamar Tatum CRNP 132 [place] [address] 04/14/2024 8:40 AM EDT Laboratory Lab Mobile Phle[facility] [address] [place] [address] [facility] Mobile Home Draw [address] [place] [address] 04/28/2024 8:40 AM EDT Laboratory Lab Mobile Phlebot[facility] [address] [place] [address] [facility] Mobile Home Draw [address] [place] [address] 05/12/2024 8:40 AM EDT Laboratory Lab Mobile Phlebot[facility] [address] [place] [address] [facility] Draw [address] [place] [address] 05/26/2024 8:40 AM EDT Laboratory Lab Mobile Phle[facility] [address] [place] [address] [facility] Mobile Home Draw [address] [place] [address] 06/09/2024 8:40 AM EDT Laboratory Lab Mobile Phle[facility] [address] [place] [address] [facility] Home Draw [address] [place] [address] 06/23/2024 8:40 AM EDT Laboratory Lab Mobile Ph[facility] [address] [place] [address] [facility] Mobile Home Draw [address] [place] [address] 07/07/2024 8:40 AM EDT Laboratory Lab Mobile Phle[facility] [address] [place] [address] [facility] Mobile Home Draw [address] [place] [address] 07/21/2024 8:40 AM EDT Laboratory Lab Mobile Phlebotomy [facility] [address] [place] [address] [facility] Mobile Home Draw [address] [place] [address] 08/04/2024 8:40 AM EDT Laboratory Lab Mobile Phlebotomy [facility] [address] [place] [address] [facility] Mobile Home Draw [address] [place] [address] 08/18/2024 8:40 AM EDT Laboratory Lab Mobile Phlebotomy [facility] [address] [place] [address] [facility] Mobile Home Draw [address] [place] [address] 08/20/2024 10:15 AM EDT Office Visit Ophthalmology, [address] [address] Cody Gonzalez DO [address] [place] [address] 09/01/2024 8:40 AM EDT Laboratory Lab Mobile Phlebotomy [facility] [address] [place] [address] [facility] Mobile Home Draw [address] [place] [address] 09/15/2024 8:40 AM EDT Laboratory Lab Mobile Phlebotomy [facility] [address] [place] [address] [facility] Mobile Home Draw [address] [place] [address] Scheduled Procedures Name Priority Associated Diagnoses Date/Ti [...] Additional history exists CKD PHOS USE SMARTSET 47875 01/28/202401/03, 07/26/2022, 12/05/2021, Additional history exists Diabetic Foot Exam 03/06/2024 03/06/2023, 0 01/03/2022, 03/02/2021, Additional history exists HbA1c 05/28/2024 11/27/2023, 05/03, 01/28/2023, Additional history exists Albumin/Creatinine Ratio 07/12/2024 023, 10/01/2022, 09/11/2021, Additional history exists COLONOSCOPY-ANNUAL AGES 18-100 08/09/2024 08/09/2023, 11/07/2022, 11/07/2022, Additional history exists GFR 08/15/2024 02/13/2024, 01/03, 01/17/2024, Additional history exists CKD HGB USE SMARTSET 76179 02/17/202502/17, 02/18/2024, 02/13/2024, Additional history exists Lipid [...] encounter Medical Devices Implanted Type Area Programming Internship Device Identifier Shelf Expiration Date Model / Serial / Lot Clareon Iol Aspheric Hydrophobic Acrylic Iol Implanted:Qty: 1 on 04/23/2023 by Cody Gonzalez DO at OR [facility] Lens Left: Eye 11/12/2025 CNA0T0 / [id number] / Viatorr Tips Endoprosthesis 8-10 Mm X 8cm / 2cm Implanted:Qty: 1 on 10/07/2020 by Go Alvarado MD at [facility] Right: Abdomen 03/03/2023 [id number] / / [id number] Description:Viatorr TIPS End oprosthesis 8-10 mm x 8cm / 2cm, Manufactored by [employer] Syr Pf 2ml Embospheres 100-300 - [id number] Implanted:Qty: 1 on 04/18/2021 by Kevin Lim DO at OR [facility] Left: Abdomen [email or web address] [id number] 11/25/2023 S220GH / / [id number] Lipiodol Injection - [id number] Implanted:Qty: 1 on 03/28/2022 at [facility] [employer] 03/01/2023 31450-13 01-2 / / [id number] Syr Pf 2ml Embospheres 100-300 - [id number] Implanted:Qty: 1 on 03/28/2022 at [facility] [employer] [id number] 08/31/2024 S220GH / / [id number] -5 Clareon Iol Aspheric Hydrophobic Acrylic Iol Implanted:Qty: 1 on 04/02/2023 by Cody Gonzalez DO at OR [facility] Right: Eye JAZMIN 11/12/2025 CNA0T0 / [id number] / documented as of this encounter Advance Directives Documents on File Type Date Recorded Patient Grain Drier Expl anation Advance Directives and Living Will 12/11/2022 ADVANCE DIRECTIVE / LIVING WILL LIVING WILL Power of Focusing Machine Operator 12/11/2022 POWER OF A TTORNEY [...] the patient have Health Care Power of Focusing Machine Operator? No Care Teams Horizontal Drill Operator Relationship Specialty Start Date End Date Francisco Cisse MD 200 [place] [address] PCP - General Internal Medicine 09/04/21 documented as of this encounter
--- OUTSIDE RECORDS SUMMARY | 2024-03-20 16:17 | External Medical Summary | Summary of Care ---
Author Name Unknown Organization [facility] Address [address] [place] [address] Phone [phone] Care Team Providers Care Machine Gunner Name Role Phone Francisco Cisse MD Primary Care Provider + Reason for Visit * Reason Onset Date Comments Test Results Lab 02/18/2024 Encounter Details Date Type Department Care Team (Late st Contact Info) Description 02/18/2024 Telephone Hematology/Oncology [facility] [address] Ayaka Tatum CRNP 400 [facility] [place] [address] Test Results Lab Allergies No [...] mRNA, LNP-s, No Pre serve, 2-Dose Series ([employer]) 03/08/2021,02/15/2021 HepA Inact/HepB Recomb>=18yrs old 12/04/2019,04/2019,05/20/2019 11/19/2019 PPD 06/18/2017, 3,01/09/2012,06/2011 Pneumococcal Conjugate Vacc, 13 Valent (Prevnar) 05/01/2017 Pneumococcal Polysaccharide PPV23 (Pneumovax) 08/28/2022,10/25/2015,07/14/2012 Season Influenza, Quad, PF, Adjuvanted, 65+ Yrs, IM (FLUAD) 10/07/2020(Deferred: Patient Refused - pt says he already had his shot last month at [facility] Handy Lyons and Mckinley Cobian [...] 02/21/2024 9:11 AM EDT LAMONT Norton from [place] wound care returned call to inform our office that they have received the records and his case is under review. There is a delay because the patients health condition may disqualify him as a appropriate candidate for hypobaric therapy the wound clinic is still working on the referral. * Telephone Encounter - Josephine Murphy RN - 02/19/2024 12:[address] [facility] hospitalist will consent patient for transfusion- updated MTU. * Telephone Encounter - Kaylie Glass LPN - 02/19/2024 11:28 AM EDT Spoke with patient. States [place] [facility] center is to call him [...] Thanks, HM * Telephone Encounter - Kaylie Galss LPN - 02/19/2024 9:[address] [...] a transfusion tomorrow. His son would prefer manager body appt Patient to receive 1 unit PRBC for hgb 7.0. Called [facility] blood bank. No issues with having blood available pending changes to T&S. Called [facility] MTU ([place]) and central scheduling ([place]). [...] patient astheir phone continues to disconnect. Called [facility]ex, patients EC, no answer, LMOM with return [...] [address] [facility] MTU. With T&S please fax order for patient to have ferritin and iron screen drawn prior to transfusion. Orders placed. Repeat CBCd in one week. documented in this encounter Plan of Treatment Upcoming Encounters Date Type Department Care Team (Late st Contact Info) Description 02/26/2024 11:20 AM EDT Office Visit General Internal Medicine [facility] [place] [address] [place] [address] Francisco Cisse MD 200 [facility] [place] [address] 02/27/2024 10:20 AM EDT Office Visit Pulmonary Medicine, [facility] [address] [facility] [place] [address] Jordan Stanley MD [address] [place] [address] 03/03/2024 8:40 AM EDT Laboratory Lab Mobile Phlebotomy [facility] [address] [place] [address] [facility], [facility] Mobile Home Draw [address] [place] [address] 03/13/2024 2:00 PM EDT Office Visit Dermatology [facility] 200 [facility] [place] [address] Francisco Watson MD 200 [facility] [place] [address] 03/17/2024 8:40 AM EDT Laboratory Lab Mobile Phlebotomy [facility] [address] [place] [address] [facility], [facility] Mobile Home Draw [address] [place] [address] 03/18/2024 11:00 AM EDT Office Visit Urology, [facility] [address] [facility] [place] [address] Frank Peraza MD [address] [place] [address] [place] [address] 03/24/2024 2:30 PM EDT Office Visit Hematology/Oncology [facility] 200 [facility] [place] [phone] Ayaka Tatum CRNP [address] [place] [address] [place] [address] 03/30/2024 12:00 PM EDT Office Visit Family Practice [facility] [address] [place] [address] Kristen Vences DO [address] [place] [address] 03/31/2024 8:40 AM EDT Laboratory Lab Mobile Phlebotomy [facility] [address] [place] [address] [facility] Mobile Home Draw [address] [place] [address] 04/07/2024 10:00 AM EDT Office Visit Gastroenterology, [facility] [address] [place] [address] Lamar Tatum CRNP [address] [place] [address] 04/14/2024 8:40 AM EDT Laboratory Lab Mobile Phlebotomy [facility] [address] [place] [address] [facility] Mobile Home Draw [address] [place] [address] 04/28/2024 8:40 AM EDT Laboratory Lab Mobile Phlebotomy [facility] [address] [place] [address] [facility] Mobile Home Draw [address] [place] [address] 05/12/2024 8:40 AM EDT Laboratory Lab Mobile Phlebotomy [facility] [address] [place] [address] [facility] Mobile Home Draw [address] [place] [address] 05/26/2024 8:40 AM EDT Laboratory Lab Mobile Phlebotomy [facility] [address] [place] [address] [facility] Mobile Home Draw [address] [place] [address] 06/09/2024 8:40 AM EDT Laboratory Lab Mobile Phlebotomy [facility] [address] [place] [address] [facility] Mobile Home Draw [address] [place] [address] 06/23/2024 8:40 AM EDT Laboratory Lab Mobile Phlebotomy [facility] [address] [place] [address] [facility] Mobile Home Draw [address] [place] [address] 07/07/2024 8:40 AM EDT Laboratory Lab Mobile Phlebotomy [facility] [address] [place] [address] [facility] Mobile Home Draw [address] [place] [address] 07/21/2024 8:40 AM EDT Laboratory Lab Mobile Phlebotomy [facility] [address] [place] [address] [facility] Mobile Home Draw [address] [place] [address] 08/04/2024 8:40 AM EDT Laboratory Lab Mobile Phlebotomy [facility] [address] [place] [address] [facility] Mobile Home Draw [address] [place] [address] 08/18/2024 8:40 AM EDT Laboratory Lab Mobile Phlebotomy [facility] [address] [place] [address] [facility] Mobile Home Draw [address] [place] [address] 08/20/2024 10:15 AM EDT Office Visit Ophthalmology, [facility] [address] [place] [address] Cody Gonzalez, DO 21 [facility] [place] [address] 09/01/2024 8:40 AM EDT Laboratory Lab Mobile Phlebotomy [facility] [address] [place] [address] [facility], [facility] Mobile Home Draw [address] [place] [address] 09/15/2024 8:40 AM EDT Laboratory Lab Mobile Phlebotomy [facility] [address], [place] [address] [facility], [facility] Mobile Home Draw [address] [place] [address] Scheduled Orders Name Type Priority Associated Diagnoses [...] Additional history exists CKD PHOS USE SMARTSET 46021 01/28/202401/03, 07/26/2022, 12/05/2021, Additional history exists Diabetic Foot Exam 03/06/2024 03/06/2023, 0 01/03/2022, 03/02/2021, Additional history exists HbA1c 05/28/2024 11/27/2023, 05/03, 01/28/2023, Additional history exists Albumin/Creatinine Ratio 07/12/2024 023, 10/01/2022, 09/11/2021, Additional history exists COLONOSCOPY-ANNUAL AGES 18-100 08/09/2024 08/09/2023, 11/07/2022, 11/07/2022, Additional history exists GFR 08/15/2024 02/13/2024, 01/03, 01/17/2024, Additional history exists CKD HGB USE SMARTSET 50801 02/17/202502/17, 02/18/2024, 02/13/2024, Additional history exists Lipid [...] this encounter Medical Devices Implanted Type Area Independent Video Producer Device Identifier Shelf Expiration Date Model / Serial / Lot Clareon Iol Aspheric Hydrophobic Acrylic Iol Implanted:Qty: 1 on 04/23/2023 by Cody Gonzalez DO at OR [facility] Lens Left: Eye 11/12/2025 CNA0T0 / [id number] / Viatorr Tips Endoprosthesis 8-10 Mm X 8cm / 2cm Implanted:Qty: 1 on 10/07/2020 by Go Alvarado MD at [facility] Right: Abdomen 03/03/2023 [id number] / / [id number] Description:Viatorr TIPS End oprosthesis 8-10 mm x 8cm / 2cm, Manufactored by [employer] Syr Pf 2ml Embospheres 100-300 - [id number] Implanted:Qty: 1 on 04/18/2021 by Kevin Lim DO at OR [facility] Left: Abdomen [employer] [id number] 11/25/2023 S220GH / / [id number] Lipiodol Injection - [id number] Implanted:Qty: 1 on 03/28/2022 at [facility] [employer] 03/01/2023 76113-33 01-2 / / [id number] Syr Pf 2ml Embospheres 100-300 - [id number] Implanted:Qty: 1 on 03/28/2022 at [facility] [employer] [id number] 08/31/2024 S220GH / / [id number] -[id number] Clareon Iol Aspheric Hydrophobic Acrylic Iol Implanted:Qty: 1 on 04/02/2023 by Cody Gonzalez DO at OR [facility] Right: Eye JAZMIN 11/12/2025 CNA0T0 / [id number] / documented as of this encounter Visit Diagnoses Diagnosis Iron deficiency anemia, unspecified iron deficiency anemia type- Primary documented in this encounter Advance Directives Documents on File Type Date Recorded 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 No Care Teams Machine Gunner Relationship Specialty Start Date End Date Francisco Cisse MD [address] [place] [address] PCP - General Internal Medicine 09/04/21 documented as of this encounter
[2024-03-20] MEDS ORDERED: cefTRIAXone SODIUM 2,000 MG in DEXTROSE 5 % MINI-B 50 ML IV SCH (20:00)
--- OUTSIDE RECORDS SUMMARY | 2024-03-20 21:57 | External Medical Summary | Summary of Care ---
Author Name Unknown Organization [facility] Address [address] [facility] [place] [address] Phone [phone] Care Team Providers Care New Client Banking Services Clerk Name Role Phone Francisco Cisse MD Primary Care Provider + Reason for Referral * Evaluate & Treat - Unlimited Visits (Within 30 days (routine)) - Authorized Specialty Diagnoses / Procedures Referred By Chacho fleming Referred To Contact Physical Therapy / Physical Medicine And Rehab Diagnoses Other closed fracture of twelfth thoracic vertebra, sequela Closed compression fracture of L2 lumbar vertebra, initial encounter ([facility]) Francisco Cisse MD 200 [facility] [place] [address] Referral ID Status Reason Start Date Expiration Date Visits Requested Visits Authorized [id number] Authorized Specialty Services Required 03/05/2024 999 999 [...] State Rey Avilez [address] [place] [address] Francisco Cisse MD 200 [facility] [place] [address] Test Results (X-ray ); Home Health Allergies No known active allergiesdocumented as of this encounter (statuses as of 03/19/2024) Medications Medication Sig Dispensed Refills Start Date [...] breath) 2.5 mg NEBULIZER PRN 03/18/2023 03/17/2024 End ed Albuterol Sulfate (Proventil) (5 MG/ML) 0.5% *conc* inhalation solution 2.5 mgIndications:SOB (shortness of breath) 2.5 mg NEBULIZER PRN 03/18/2023 03/17/2024 End ed documented as of this encounter (statuses as of 03/19/2024) Active Problems Problem Noted Date Diagnosed Date [...] as of this encounter (statuses as of 03/19/2024) Resolved Problems Problem Noted Date Diagnosed Date [...] as of this encounter (statuses as of 03/19/2024) Immunizations Name Administration Dates Next Due COVID-19 mRNA, LNP-s, No Pre serve, 2-Dose Series ([employer]) 03/08/2021,02/15/2021 HepA Inact/HepB Recomb>=18yrs old 12/04/2019,04/2019,05/20/2019 11/19/2019 [...] Telephone Encounter - Petra Obregon OSA - 03/19/2024 12:49 PM EDT Pt is scheduled to et care with another provider - Date: 03/30/2024 Status: Maiyto Time: 12:00 PM Length: 40 Visit Type: [facility] [85143] Reg Status: Verified Copay: $0.00 Provider: Kristen Vences DO Department: [facility] * Addendum Note - Francisco Cisse MD [...] - 03/04/2024 9:38 AM EDT Cristina from [facility] was asked by patient to call office Patient would like to know if he can get an order for PT with [facility] To help with strengthening and proper ambulation with a L2 compression deformity Please advise Please fax to [phone] * Telephone Encounter - Korin Allison LPN [...] Care Team (Late st Contact Info) Description 03/23/2024 2:00 PM EDT Office Visit Radiology, [place] [address] [place] [address] Chavez Sapp MD [address] [place] [address] 03/24/2024 2:30 PM EDT [facility] 200 [facility] [place] [address] Ayaka Tatum CRNP [address] [place] [address] 03/30/2024 12:00 PM EDT Office Visit Family Practice [facility] 132 [facility] [place] [address] Kristen Vences DO 132 [facility] [place] [address] 03/31/2024 7:05 AM EDT Laboratory Lab Mobile Phlebotomy [facility] [address] [place] [address] [facility], [facility] Mobile Home Draw [address] [place] [address] 04/07/2024 10:00 AM EDT Office Visit Gastroenterology, [facility] 132 [facility] [place] [address] Lamar Tatum CRNP 132 [facility] [place] [address] 04/14/2024 7:05 AM EDT Laboratory Lab Mobile Phlebotomy [facility] [address] [place] [address] [facility], [facility] Mobile Home Draw [address] [place] [address] 04/28/2024 7:05 AM EDT Laboratory Lab Mobile Phlebotomy [facility] [address] [place] [address] [facility], [facility] Mobile Home Draw [address] [place] [address] 05/12/2024 7:05 AM EDT Laboratory Lab Mobile Phlebotomy [facility] [address] [place] [address] [facility], [facility] Mobile Home Draw [address] [place] [address] 2024 2:30 PM EDT Office Visit [facility] [address] [place] [address] [place] [address] Frank Peraza MD [address] [place] [address] 05/26/2024 7:05 AM EDT Laboratory Lab Mobile Phlebotomy [facility] [address] [place] [address] [facility], [facility] Mobile Home Draw [address] [place] [place] [address] 06/09/2024 7:05 AM EDT Laboratory Lab Mobile Phlebotomy [facility] [address] [place] [address] [facility], [facility] Mobile Home Draw [address] [place] [address] 06/23/2024 7:05 AM EDT Laboratory Lab Mobile Phlebotomy [facility] [address] [place] [address] [facility], [facility]ml Mobile Home Draw [address] [place] [address] 07/07/2024 7:05 AM EDT Laboratory Lab Mobile Phlebotomy [facility] [address] [place] [place] [address] [facility], Gml Mobile Home Draw [address] [place] [address] 07/21/2024 7:05 AM EDT Laboratory Lab Mobile Phlebotomy [facility] [address] [place] [address] [facility], [facility] Mobile Home Draw [address] [place] [address] 08/04/2024 7:05 AM EDT Laboratory Lab Mobile Phlebotomy [facility] [address] [place] [place] [address] M[facility], Gml Mobile Home Draw [address] [facility] [place], [place] [address] 08/18/2024 7:05 AM EDT Laboratory Lab Mobile Phlebotomy [facility] [address] [facility] [place] [address] [facility], [facility] Mobile Home Draw [address] [facility] [place], [place] [address] 08/20/2024 10:15 AM EDT Office Visit Ophthalmology, [facility] 132 [place] [address] Cody Gonzalez DO 21 [facility] [place] [address] 09/01/2024 7:05 AM EDT Laboratory Lab Mobile Phlebotomy [facility] [address] [facility] [place] [address] [facility], [facility] Mobile Home Draw [address] [facility] [place], [place] [address] 09/15/2024 7:05 AM EDT Laboratory Lab Mobile Phlebotomy [facility] [address] [facility] [place], [place] [address] [facility], [facility] Mobile Home Draw [address] [place] [address] 10/12/2024 10:20 AM EST Office Visit Pulmonary Medicine, [facility] 132 [facility] [place] [address] Jordan Stanley MD [address] [place] [address] Scheduled Procedures Name Priority Associated Diagnoses Date/Ti [...] fracture of L2 lumbar vertebra, initial encounter ([facility]) Ordered: 03/05/2024 Health Maintenance Due Date Last [...] Additional history exists CKD PHOS USE SMARTSET 16063 02/25/202501/31, 01/28/2023, 07/26/2022, Additional history exists CKD HGB USE SMARTSET 90674 03/17/202503/17, 03/17/2024, 03/03/2024, Additional history exists Lipid [...] this encounter Medical Devices Implanted Type Area Retail Leasing Agent Device Identifier Shelf Expiration Date Model / Serial / Lot Clareon Iol Aspheric Hydrophobic Acrylic Iol Implanted:Qty: 1 on 04/23/2023 by Cody Gonzalez DO at OR [facility] Lens Left: Eye 11/12/2025 CNA0T0 / [id number] / Viatorr Tips Endoprosthesis 8-10 Mm X 8cm / 2cm Implanted:Qty: 1 on 10/07/2020 by Go Alvarado MD at [facility] Right: Abdomen 03/03/2023 [id number] / / [id number] Description:Viatorr TIPS End oprosthesis 8-10 mm x 8cm / 2cm, Manufactored by [employer] Syr Pf 2ml Embospheres 100-300 - [id number] Implanted:Qty: 1 on 04/18/2021 by Kevin Lim DO at OR [facility] Left: Abdomen [employer] [id number] 11/25/2023 S220GH / / [id number] Lipiodol Injection - [id number] Implanted:Qty: 1 on 03/28/2022 at [facility] [employer] 03/01/2023 11629-90 01-2 / / [id number] Syr Pf 2ml Embospheres 100-300 - [id number] Implanted:Qty: 1 on 03/28/2022 at [facility] [employer] [id number] 08/31/2024 S220GH / / [id number] -5 Clareon Iol Aspheric Hydrophobic Acrylic Iol Implanted:Qty: 1 on 04/02/2023 by Cody Gonzalez DO at OR [facility] Right: Eye JAZMIN 11/12/2025 CNA0T0 / [id number] / documented as of this encounter Visit Diagnoses Diagnosis Other closed fracture of twelfth thoracic vertebra, sequela- Primary Closed compression fracture of L2 lumbar vertebra, initial encounter ([facility]) documented in this encounter Advance Directives Documents on File Type Date Recorded 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 No Care Teams New Client Banking Services Clerk Relationship Specialty Start Date End Date Francisco Cisse MD [address] [place] [address] PCP - General Internal Medicine 09/04/21 documented as of this encounter
--- OUTSIDE RECORDS SUMMARY | 2024-03-20 21:57 | External Medical Summary | Summary of Care ---
Author Name Unknown Organization [facility] Address [address] [place] [address] Phone [phone] Care Team Providers Care Hydraulic Press Servicer Name Role Phone Francisco Cisse MD Primary Care Provider + Encounter Details Date Type Department Care Team (Late st Contact Info) Description 03/19/2024 [facility] [address] [place] [address] Jocelyne Sykes, RN Pre-transplant evaluation for chronic [...] had his shot last month at [facility] Handy Lyons and [...] Progress Notes * Jocelyne Sykes RN - 03/19/2024 2:02 PM EDT Scheduled for annual liver transplant evaluation on 03/23/24. Orders placed for annual liver transplant evaluation labs documented in this encounter Plan of Treatment Upcoming Encounters Date Type Department Care Team (Late st Contact Info) Description 03/23/2024 2:00 PM EDT Office Visit Radiology, [place] [address] [facility] [place] [address] Chavez Sapp MD [address] [place] [address] 03/24/2024 2:30 PM EDT Office Visit Hematology/Oncology [facility] [place] [address] [facility] [place] [address] Ayaka Tatum CRNP 400 [facility] [place] [address] 03/30/2024 12:00 PM EDT Office Visit Family Practice [facility] [address] [facility] [address] Kristen Vences DO [facility] [place] [address] 03/31/2024 7:05 AM EDT Laboratory Lab Mobile Phlebotomy [facility] [address] [employer] [place] [address] Mvmg, Gml [facility] Draw [address] [facility] [place], [place] [address] 04/07/2024 10:00 AM EDT Office Visit Gastroenterology, [facility] 132 [facility] [place] [address] Lamar Tatum CRNP [facility] [address] 04/14/2024 7:05 AM EDT Laboratory Lab Mobile Phlebotomy [facility] [address] [place] [address] Mvmg, Gml [facility] Draw [address] [facility] [place], [place] [address] 04/28/2024 7:05 AM EDT Laboratory Lab Mobile Phlebotomy M[facility] [address] [place] [address] Mvmg, Gml Mobile Home Draw [address] [facility] [place] [address] 05/12/2024 7:05 AM EDT Laboratory Lab Mobile Phlebotomy [facility] [address] [place] [address] Mvmg, Gml Mobile Home Draw [address] [place] [employer] [place] [address] 2024 2:30 PM EDT Office Visit Lynnette Terry [address] [place] [address] [place] [address] Frank Peraza MD [address] [place] [address] [place] [address] 05/26/2024 7:05 AM EDT Laboratory Lab Mobile Phlebotomy M[facility] [address] [employer] [place] [address] Mvmg, Gml Mobile Home Draw [address] [employer] [place] [address] 06/09/2024 7:05 AM EDT Laboratory Lab Mobile Phlebotomy M[facility] [address] [employer] [place] [address] Mvmg, Gml Mobile Home Draw [address] [employer] [place] [address] 06/23/2024 7:05 AM EDT Laboratory Lab Mobile Phlebotomy M[facility] [address] [place] [address] Mvmg, Gml Mobile Home Draw [address] [place] [employer] [place] [address] 07/07/2024 7:05 AM EDT Laboratory Lab Mobile Phlebotomy M[facility] [address] [employer] [place] [address] Mvmg, Gml Mobile Home Draw [address] [employer] [place] [address] 07/21/2024 7:05 AM EDT Laboratory Lab Mobile Phlebotomy M[facility] [address] [place] [address] Mvmg, Gml Mobile Home Draw [address] [employer] [place] [address] 08/04/2024 7:05 AM EDT Laboratory Lab Mobile Phlebotomy M[facility] [address] [employer] [place], [place] [address] Mvmg, Gml Mobile Home Draw 2520 [facility] [place], [place] [address] 08/18/2024 7:05 AM EDT Laboratory Lab Mobile Phlebotomy MVM[facility] [address] [place], [place] [address] Mvmg, Gml Mobile Home Draw 2520 [facility] [place], [place] [address] 08/20/2024 10:15 AM EDT Office Visit Ophthalmology, [facility] 132 [place] [address] Cody Gonzalez DO [address] [place] [address] [place] [address] 09/01/2024 7:05 AM EDT Laboratory Lab Mobile Phlebotomy M[facility] [address] [facility] [place], [place] [address] Mvmg, Gml Mobile Home Draw 2520 [facility] [place], [place] [address] 09/15/2024 7:05 AM EDT Laboratory Lab Mobile Phlebotomy M[facility] [address] [facility] [place] [address] Mvmg, Gml Mobile Home Draw 2520 [facility] [place], [place] [address] 10/12/2024 10:20 AM EST Office Visit Pulmonary Medicine, [facility] [address] [facility] [address] Jordan Stanley MD [address] [place] [address] Scheduled Orders Name Type Priority Associated Diagnoses Orde r Schedule COMPREHENSIVE METABOLIC PANEL Lab Routine Hepatocellular carcinoma (HCC) Pre-transplant evaluation for chronic liver disease Expected: 03/23/2024 (Approximate), Expires: 03/01/2025 T4, FREE Lab Routine Hepatocellular carcinoma (HCC) Pre-transplant evaluation for chronic liver disease Expected: 03/23/2024 (Approximate), Expires: 03/01/2025 TSH Lab Routine Hepatocellular carcinoma (HCC) Pre-transplant evaluation for chronic liver disease Expected: 03/23/2024 (Approximate), Expires: 03/01/2025 ALPHA-FETOPROTEIN TUMOR MARKER Lab Routine Hepatocellular carcinoma (HCC) Pre-transplant evaluation for chronic liver disease Expected: 03/23/2024 (Approximate), Expires: 03/01/2025 PSA Lab Routine Hepatocellular carcinoma (HCC) Pre-transplant evaluation for chronic liver disease Expected: 03/23/2024 (Approximate), Expires: 03/01/2025 HEPATITIS A ANTIBODIES IGG AND IGM Lab Routine Hepatocellular carcinoma (HCC) Pre-transplant evaluation for chronic liver disease Expected: 03/23/2024 (Approximate), Expires: 03/01/2025 HEPATITIS B SURFACE ANTIGEN Lab Routine Hepatocellular carcinoma (HCC) Pre-transplant evaluation for chronic liver disease Expected: 03/23/2024 (Approximate), Expires: 03/01/2025 HEPATITIS B SURFACE ANTIBODY Lab Routine Hepatocellular carcinoma (HCC) Pre-transplant evaluation for chronic liver disease Expected: 03/23/2024 (Approximate), Expires: 03/01/2025 HEPATITIS B CORE ANTIBODIES IGG AND IGM Lab Routine Hepatocellular carcinoma (HCC) Pre-transplant evaluation for chronic liver disease Expected: 03/23/2024 (Approximate), Expires: 03/01/2025 HEPATITIS C ANTIBODY SCREEN WITH PROGRESSION TO HEPATITIS C RNA QUANTITATIVE Lab Routine Hepatocellular carcinoma (HCC) Pre-transplant evaluation for chronic liver disease Expected: 03/23/2024 (Approximate), Expires: 03/01/2025 CMV IGG ANTIBODY Lab Routine Hepatocellular carcinoma (HCC) Pre-transplant evaluation for chronic liver disease Expected: 03/23/2024 (Approximate), Expires: 03/01/2025 EBV VIRAL CAPSID ANTIGEN IGG ANTIBODY Lab Routine Hepatocellular carcinoma (HCC) Pre-transplant evaluation for chronic liver disease Expected: 03/23/2024 (Approximate), Expires: 03/01/2025 VARICELLA-ZOSTER VIRUS ANTIBODY, IGG Lab Routine Hepatocellular carcinoma (HCC) Pre-transplant evaluation for chronic liver disease Expected: 03/23/2024 (Approximate), Expires: 03/01/2025 RPR Lab Routine Hepatocellular carcinoma (HCC) Pre-transplant evaluation for chronic liver disease Expected: 03/23/2024 (Approximate), Expires: 03/01/2025 QUANTIFERON TB GOLD PLUS Lab Routine Hepatocellular carcinoma (HCC) Pre-transplant evaluation for chronic liver disease Expected: 03/23/2024 (Approximate), Expires: 03/01/2025 CBC WITH WBC DIFFERENTIAL Lab Routine Hepatocellular carcinoma (HCC) Pre-transplant evaluation for chronic liver disease Expected: 03/23/2024 (Approximate), Expires: 03/01/2025 PT INR Lab Routine Hepatocellular carcinoma (HCC) Pre-transplant evaluation for chronic liver disease Expected: 03/23/2024 (Approximate), Expires: 03/01/2025 APTT Lab Routine Hepatocellular carcinoma (HCC) Pre-transplant evaluation for chronic liver disease Expected: 03/23/2024 (Approximate), Expires: 03/01/2025 URINALYSIS, REFLEX TO MICROSCOPIC Lab Routine Hepatocellular carcinoma (HCC) Pre-transplant evaluation for chronic liver disease Expected: 03/23/2024 (Approximate), Expires: 03/01/2025 HIV ANTIGEN & ANTIBODY SCREEN W/ CONFIRMATION Lab Routine Hepatocellular carcinoma (HCC) Pre-transplant evaluation for chronic liver disease Expected: 03/23/2024 (Approximate), Expires: 03/01/2025 PHOSPHORUS Lab Routine Hepatocellular carcinoma (HCC) Pre-transplant evaluation for chronic liver disease Expected: 03/23/2024 (Approximate), Expires: 03/01/2025 MAGNESIUM Lab Routine Hepatocellular carcinoma (HCC) Pre-transplant evaluation for chronic liver disease Expected: 03/23/2024 (Approximate), Expires: 03/01/2025 LIPID PANEL WITHOUT DIRECT LDL Lab Routine Hepatocellular carcinoma (HCC) Pre-transplant evaluation for chronic liver disease Expected: 03/23/2024 (Approximate), Expires: 03/01/2025 HEMOGLOBIN A1C Lab Routine Hepatocellular carcinoma (HCC) Pre-transplant evaluation for chronic liver disease Expected: 03/23/2024 (Approximate), Expires: 03/01/2025 ETHANOL, MEDICAL Lab Routine Hepatocellular carcinoma (HCC) Pre-transplant evaluation for chronic liver disease Expected: 03/23/2024 (Approximate), Expires: 03/01/2025 TOXICOLOGY, URINESCREEN W/ CONFIRMATION Lab Routine Hepatocellular carcinoma (HCC) Pre-transplant evaluation for chronic liver disease Expected: 03/23/2024 (Approximate), Expires: 03/01/2025 PHOSPHATIDYLETHANOL, BLOOD Lab Routine Hepatocellular carcinoma (HCC) Pre-transplant evaluation for chronic liver disease Expected: 03/23/2024 (Approximate), Expires: 03/01/2025 Scheduled Procedures Name Priority Associated Diagnoses Date/Ti [...] Additional history exists CKD PHOS USE SMARTSET 94819 02/25/202501/31, 01/28/2023, 07/26/2022, Additional history exists CKD HGB USE SMARTSET 06887 03/17/202503/17, 03/17/2024, 03/03/2024, Additional history exists Lipid [...] this encounter Medical Devices Implanted Type Area Forest Fire Control Officer Device Identifier Shelf Expiration Date Model / Serial / Lot Clareon Iol Aspheric Hydrophobic Acrylic Iol Implanted:Qty: 1 on 04/23/2023 by Cody Gonzalez DO at OR [facility] Lens Left: Eye 11/12/2025 CNA0T0 / [id number] / Viatorr Tips Endoprosthesis 8-10 Mm X 8cm / 2cm Implanted:Qty: 1 on 10/07/2020 by Go Alvarado MD at [facility] Right: Abdomen 03/03/2023 [id number] / / [id number] Description:Viatorr TIPS End oprosthesis 8-10 mm x 8cm / 2cm, Manufactored by [employer] Syr Pf 2ml Embospheres 100-300 - [id number] Implanted:Qty: 1 on 04/18/2021 by Kevin Lim DO at OR [facility] Left: Abdomen [employer] [id number] 11/25/2023 S220GH / / [id number] Lipiodol Injection - [id number] Implanted:Qty: 1 on 03/28/2022 at [facility] [employer] 03/01/2023 [id number] 01-2 / / [id number] Syr Pf 2ml Embospheres 100-300 - [id number] Implanted:Qty: 1 on 03/28/2022 at [facility] [employer] [id number] 08/31/2024 S220 / / [id number] -[id number] Clareon Iol Aspheric Hydrophobic Acrylic Iol Implanted:Qty: 1 on 04/02/2023 by Cody Gonzalez DO at OR [facility] Right: Eye JAZMIN 11/12/2025 CNA0T0 / [id number] / documented as of this encounter Visit Diagnoses Diagnosis Pre-transplant evaluation for chronic liver disease- Primary Other specified pre-operative examination Hepatocellular carcinoma (HCC) Malignant neoplasm of liver, primary documented in this encounter Advance Directives Documents on File Type Date Recorded Patient Form Setter Expl anation Advance Directives and Living Will 12/11/2022 ADVANCE DIRECTIVE / LIVING WILL LIVING WILL Power of Stone Lathe Operator 12/11/2022 POWER OF A TTORNEY [...] the patient have Health Care Power of Stone Lathe Operator? No Care Teams Hydraulic Press Servicer Relationship Specialty Start Date End Date Francisco Cisse MD [address] [place] [address] PCP - General Internal Medicine 09/04/21 documented as of this encounter
--- OUTSIDE RECORDS SUMMARY | 2024-03-20 22:38 | External Medical Summary | Summary of Care ---
Author Name Unknown Organization [facility] Address [address] [place] [place] [address] Phone [phone] Care Team Providers Care Orchestra Teacher Name Role Phone Francisco Cisse MD Primary Care Provider + Reason for Visit * Reason Onset Date Comments Advice 03/19/2024 Encounter Details Date Type Department Care Team (Late st Contact Info) Description 03/19/2024 Telephone General Internal Medicine [facility] [address] [facility] [place] [address] Francisco Cisse MD [address] [place] [address] Advice Allergies No known active allergiesdocumented as [...] mRNA, LNP-s, No Pre serve, 2-Dose Series ([email or web address][employer]tv) 03/08/2021,02/15/2021 HepA Inact/HepB Recomb>=18yrs old 12/04/2019,04/2019,05/20/2019 11/19/2019 PPD 06/18/2017, 3,01/09/2012,06/2011 Pneumococcal Conjugate Vacc, 13 Valent (Prevnar) 05/01/2017 Pneumococcal Polysaccharide PPV23 (Pneumovax) 08/28/2022,10/25/2015,07/14/2012 Season Influenza, Quad, PF, Adjuvanted, 65+ Yrs, IM (FLUAD) 10/07/2020(Deferred: Patient Refused - pt says he already had his shot last month at [facility] Handy Lyons and Mckinley Cobian [...] encounter Miscellaneous Notes * Telephone Encounter - Sherlyn Lees LPN - 03/19/2024 2:30 PM EDT Pt calling back. Informed of message from Dr Cisse. He verbalized understanding. * Telephone Encounter - Maura Hernandez OSA - 03/19/2024 2:28 PM EDT Reason for patient's call: Pt and Carlee from [employer] calling in Caller was transferred to [facility] at the nurse line. * Telephone Encounter - Ana Paula Ram RN - 03/19/2024 2:25 PM EDT This triage nurse did not contact the patient as the [facility] Ana Paula Ram, RN, BSN * Telephone Encounter - Francisco Cisse MD - 03/19/2024 2:12 PM EDT That is not typical, and if screaming in pain, would suggest er to make sure no post op complicaiton * Telephone Encounter - Lilly Pena LPN - 03/19/2024 2:02 PM EDT I was transferred the patient and he states he had a paracentesis today and on the way home he had the worst diarrhea he has ever had along with extreme pain. Patient states he is having pain on boththe right and left side. Patient states the procedure was done on the right side so he is not sure why he is having left side pain. Patient states he took tylenol 15 minutes ago with no relief so far. Patient states the only position so far he has found that is the most comfortable is lying on the left side. Patient wants to know if the diarrhea is normal and other than tylenol what should he be doing for the pain? Advised patient we would give him a call back once message has been read and reviewed by provider. * Telephone Encounter - Damaris Tripp OSA - 03/19/2024 1:56 PM EDT Patient just had surgery and is in bad pain screaming, transferred to [facility] nurse documented in this encounter Plan of Treatment Upcoming Encounters Date Type Department Care Team (Late st Contact Info) Description 03/23/2024 2:00 PM EDT Office Visit Radiology, [place] [address] [place] [address] Chavez Sapp MD [address] [place] [address] 03/24/2024 2:30 PM EDT Office Visit Hematology/Oncology [facility] [place] [address] [facility] [place] [phone] Ayaka Tatum CRNP 400 [place] [address] 03/30/2024 12:00 PM EDT Office Visit Family Practice [facility] [address] [facility] [place] [address] Kristen Vences DO [address] [place] [address] 03/31/2024 7:05 AM EDT Laboratory Lab Mobile Phlebotomy M[facility] 2520 [employer] [facility] [place] [address] Mvmg, Gml Mobile Home Draw 2520 [employer] [facility] [place] [address] 04/07/2024 10:00 AM EDT Office Visit Gastroenterology, [facility] [address] [place] [address] Lamar Tatum CRNP [address] [place] [address] 04/14/2024 7:05 AM EDT Laboratory Lab Mobile Phlebotomy M[facility] [address] [employer] [place] [address] Mvmg, Gml Mobile Home Draw [address] [place] [address] 04/28/2024 7:05 AM EDT Laboratory Lab Mobile Phlebotomy M[facility] [address] [place] [address] Mvmg, Gml Mobile Home Draw 2520 [place] [address] 05/12/2024 7:05 AM EDT Laboratory Lab Mobile Phlebotomy MVM[facility] [address] [place] [address] Mvmg, Gml Mobile Home Draw [address] [facility] [place] [address] 2024 2:30 PM EDT Office Visit Lynnette Terry [address] [place] [address] [place] [address] Frank Peraza MD [address] [place] [address] [place] [address] 05/26/2024 7:05 AM EDT Laboratory Lab Mobile Phlebotomy M[facility] 2520 [facility] [place], [place] [address] Mvmg, Gml Mobile Home Draw 2520 [facility] [place], [place] [address] 06/09/2024 7:05 AM EDT Laboratory Lab Mobile Phlebotomy MVM[facility] [address] [place] [address] Mvmg, Gml Mobile Home Draw [address] [place] [address] 06/23/2024 7:05 AM EDT Laboratory Lab Mobile Phlebotomy MVMG [address] [place] [address] Mvmg, Gml Mobile Home Draw 25[address] [facility] [place] [address] 07/07/2024 7:05 AM EDT Laboratory Lab Mobile Phlebotomy MVM[facility] [address] [place] [address] Mvmg, Gml Mobile Home Draw 25[address] [facility] [place] [address] 07/21/2024 7:05 AM EDT Laboratory Lab Mobile Phlebotomy MVMG [address] [facility] [place] [address] Mvmg, Gml Mobile Home Draw [address] [place] [address] 08/04/2024 7:05 AM EDT Laboratory Lab Mobile Phlebotomy MVMG [address] [place] [address] Mvmg, Gml Mobile Home Draw [address] [place] [address] 08/18/2024 7:05 AM EDT Laboratory Lab Mobile Phlebotomy MVMG [address] [place] [address] Mvmg, Gml Mobile Home Draw 25[address] [place] [address] 08/20/2024 10:15 AM EDT Office Visit Ophthalmology, [facility] [address] [facility] [address] Cody Gonzalez, [address] [place] [address] [place] [address] 09/01/2024 7:05 AM EDT Laboratory Lab Mobile Phlebotomy M[facility] 25[address] [place] [address] Mvmg, Gml Mobile Home Draw 2520 [facility] [place] [address] 09/15/2024 7:05 AM EDT Laboratory Lab Mobile Phlebotomy MVM[facility] 25[address] [facility] [place], [place] [address] Mvmg, Gml Mobile Home Draw 25[address] [place] [address] 10/12/2024 10:20 AM EST Office Visit Pulmonary Medicine, [facility] 132 [facility] [place] [address] Jordan Stanley MD [address] [place] [address] Scheduled Procedures Name Priority Associated Diagnoses Date/Ti [...] Additional history exists CKD PHOS USE SMARTSET 95724 02/25/202501/31, 01/28/2023, 07/26/2022, Additional history exists CKD HGB USE SMARTSET 15311 03/17/202503/17, 03/17/2024, 03/03/2024, Additional history exists Lipid [...] encounter Medical Devices Implanted Type Area Marketing Specialist Device Identifier Shelf Expiration Date Model / Serial / Lot Clareon Iol Aspheric Hydrophobic Acrylic Iol Implanted:Qty: 1 on 04/23/2023 by Cody Gonzalez DO at OR [facility] Lens Left: Eye 11/12/2025 CNA0T0 / [id number] / Viatorr Tips Endoprosthesis 8-10 Mm X 8cm / 2cm Implanted:Qty: 1 on 10/07/2020 by Go Alvarado MD at [facility] Right: Abdomen 03/03/2023 [id number] / / [id number] Description:Viatorr TIPS End oprosthesis 8-10 mm x 8cm / 2cm, Manufactored by [employer] Syr Pf 2ml Embospheres 100-300 - [id number] Implanted:Qty: 1 on 04/18/2021 by Kevin Lim DO at OR [facility] Left: Abdomen [employer] [id number] 11/25/2023 S220GH / / [id number] Lipiodol Injection - [id number] Implanted:Qty: 1 on 03/28/2022 at [facility] [employer] 03/01/2023 61652-12 01-2 / / [id number] Syr Pf 2ml Embospheres 100-300 - [id number] Implanted:Qty: 1 on 03/28/2022 at [facility] [employer] [id number] 08/31/2024 S220GH / / [id number] -[id number] Clareon Iol Aspheric Hydrophobic Acrylic Iol Implanted:Qty: 1 on 04/02/2023 by Cody Gonzalez DO at [facility] Right: Eye JAZMIN 11/12/2025 CNA0T0 / [id number] / documented as of this encounter Advance Directives Documents on File Type Date Recorded 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 No Care Teams Orchestra Teacher Relationship Specialty Start Date End Date Francisco Cisse MD [address] [facility] [place] [address] PCP - General Internal Medicine 09/04/21 documented as of this encounter
--- NOTE | 2024-03-21 05:48 | Electrocardiogram Report ---
Test Reason : Blood Pressure : / mmHG Vent. Rate : 067 BPM Atrial Rate : 067 BPM P-R Int : 186 ms QRS Dur : 086 ms QT Int : 488 ms P-R-T Axes : 052 001 018 degrees QTc Int : 515 ms Normal sinus rhythm Nonspecific ST abnormality Prolonged QT Abnormal ECG When compared with ECG of 09-FEB-2024 12:50, Nonspecific T wave abnormality now evident in Anterior leads Confirmed by Jose Ramon Rizvi ([id number]) on 03/21/2024 5:48:11 AM Referred By: REFERRED SELF Confirmed By:Greyson Rizvi
--- OUTSIDE RECORDS SUMMARY | 2024-03-21 10:46 | External Medical Summary | Summary of Care ---
Author Name Unknown Organization [facility] Address [address] [facility] [place] [address] Phone [phone] Care Team Providers Care Tear Down Worker Name Role Phone Francisco Cisse MD Primary Care Provider + Encounter Details Date Type Department Care Team (Late st Contact Info) Description 03/20/2024 Orders Only General Internal Medicine [facility] 200 [facility] [place] [address] Francisco Cisse MD [facility] [address] Allergies No known active allergiesdocumented as of this encounter (statuses as of 03/20/2024) Medications Medication Sig Dispensed Refills Start Date [...] as of this encounter (statuses as of 03/20/2024) Active Problems Problem Noted Date Diagnosed Date [...] as of this encounter (statuses as of 03/20/2024) Resolved Problems Problem Noted Date Diagnosed Date [...] as of this encounter (statuses as of 03/20/2024) Immunizations Name Administration Dates Next Due COVID-19 mRNA, LNP-s, No Pre serve, 2-Dose Series (Pfizer) 03/08/2021,02/15/2021 HepA Inact/HepB Recomb>=18yrs old 12/04/2019,04/2019,05/20/2019 11/19/2019 PPD 06/18/2017, 3,01/09/2012,06/2011 Pneumococcal Conjugate Vacc, 13 Valent (Prevnar) 05/01/2017 Pneumococcal Polysaccharide PPV23 (Pneumovax) 08/28/2022,10/25/2015,07/14/2012 Season Influenza, Quad, PF, Adjuvanted, 65+ Yrs, IM (FLUAD) 10/07/2020(Deferred: Patient Refused - pt says he already had his shot last month at [facility] [...] = 0.6 oz pur e alcohol) 1970 - last use PHQ-2 Answer Date Recorded [...] 03/23/2024 2:00 PM EDT Office Visit Radiology, [facility] [address] [place] [facility] [place] [address] Chavez Sapp MD [address] [facility] [place] [address] 03/24/2024 2:30 PM EDT Office Visit Hematology/Oncology [facility] [place] [address] [place] [address] Ayaka Tatum CRNP [address] [place] [address] 03/30/2024 12:00 PM EDT Office Visit Family Practice [facility] [address] [place] [address] Kristen Vences DO [address] [facility] [place] [address] 03/31/2024 7:05 AM EDT Laboratory Lab Mobile Phlebotomy [facility] [address] [place] [address] Mvmg, Gml [facility] Draw [address] [facility] [place], [place] [address] 04/07/2024 10:00 AM EDT Office Visit Gastroenterology, [facility] 132 [facility] [place] [address] Lamar Tatum CRNP 132 [facility] [place] [address] 04/14/2024 7:05 AM EDT Laboratory Lab Mobile Phlebotomy [facility] [address] [place], [place] [address] Mvmg, Gml [facility] Draw [address] [facility] [place], [place] [address] 04/28/2024 7:05 AM EDT Laboratory Lab Mobile Phlebotomy [facility] [address] [place] [address] Mvmg, Gml [facility] Draw [address] [place] [address] 05/12/2024 7:05 AM EDT Laboratory Lab Mobile Phlebotomy [facility] [address] [place] [address] Mvmg, Gml [facility] Home Draw [address] [place] [address] 2024 2:30 PM EDT Office Visit Urology [place] [address] [place] [address] [place] [address] Frank Peraza MD [address] [place] [address] [place] [address] 05/26/2024 7:05 AM EDT Laboratory Lab Mobile Phlebotomy [facility] [address] [place] [address] Mvmg, Gml Mobile Home Draw [address] [facility] [place] [address] 06/09/2024 7:05 AM EDT Laboratory Lab Mobile Phlebotomy [facility] [address] [address] Mvmg, Gml Mobile Home Draw [address] [place] [address] 06/23/2024 7:05 AM EDT Laboratory Lab Mobile Phlebotomy [facility] [address] [address] Mvmg, Gml [facility] Home Draw [address] [place] [address] 07/07/2024 7:05 AM EDT Laboratory Lab Mobile Phlebotomy [facility] [address] [address] Mvmg, Gml Mobile Home Draw [address] [employer] [place] [address] 07/21/2024 7:05 AM EDT Laboratory Lab Mobile Phlebotomy [facility] [address] [place] [place] [address] Mvmg, Gml Mobile Home Draw [address] [place] [address] 08/04/2024 7:05 AM EDT Laboratory Lab Mobile Phlebotomy [facility] [address] [place] [address] Mvmg, Gml Mobile Home Draw [address] [place] [address] 08/18/2024 7:05 AM EDT Laboratory Lab Mobile Phlebotomy [facility] [address] [place], [place] [address] Mvmg, Gml Mobile Home Draw [address] [facility] [place] [address] 08/20/2024 10:15 AM EDT Office Visit Ophthalmology, [facility] [address] [place] [address] Cody Gonzalez, 21 [facility] [place] [address] 09/01/2024 7:05 AM EDT Laboratory Lab Mobile Phlebotomy [facility] [address] [place] [address] Mvmg, Gml Mobile Home Draw [address] [employer] [place], [place] [address] 09/15/2024 7:05 AM EDT Laboratory Lab Mobile Phlebotomy [facility] [address] [place] [address] Mvmg, Gml Mobile Home Draw [address] [employer] [place] [address] 10/12/2024 10:20 AM EST Office Visit Pulmonary Medicine, [address] [address] Jordan Stanley MD [address] [place] [place] [address] Scheduled Procedures Name Priority Associated Diagnoses Date/Ti [...] Additional history exists CKD PHOS USE SMARTSET 61841 02/25/202501/31, 01/28/2023, 07/26/2022, Additional history exists CKD HGB USE SMARTSET 03397 03/17/202503/19, 03/17/2024, 03/17/2024, Additional history exists Lipid Panel 01/28/2028 01/28/2023, [...] this encounter Medical Devices Implanted Type Area Construction Project Assistant Device Identifier Shelf Expiration Date Model / Serial / Lot Clareon Iol Aspheric Hydrophobic Acrylic Iol Implanted:Qty: 1 on 04/23/2023 by Cody Gonzalez DO at OR [facility] Lens Left: Eye 11/12/2025 CNA0T0 / [id number] / Viatorr Tips Endoprosthesis 8-10 Mm X 8cm / 2cm Implanted:Qty: 1 on 10/07/2020 by Go Alvarado MD at [facility] Right: Abdomen 03/03/2023 [id number] / / [id number] Description:Viatorr TIPS End oprosthesis 8-10 mm x 8cm / 2cm, Manufactored by [employer] Syr Pf 2ml Embospheres 100-300 - [id number] Implanted:Qty: 1 on 04/18/2021 by Kevin Lim DO at OR [facility] Left: Abdomen [employer] [id number] 11/25/2023 S220GH / / [id number] Lipiodol Injection - [id number] Implanted:Qty: 1 on 03/28/2022 at [facility] [employer] 03/01/2023 69417-12 01-2 / / [id number] Syr Pf 2ml Embospheres 100-300 - [id number] Implanted:Qty: 1 on 03/28/2022 at [facility] [employer] [id number] 08/31/2024 S220GH / / [id number] Clareon Iol Aspheric Hydrophobic Acrylic Iol Implanted:Qty: 1 on 04/02/2023 by Cody Gonzalez DO at OR [facility] Right: Eye JAZMIN 11/12/2025 CNA0T0 / [id number] / documented as of this encounter Procedures Procedure Name Priority Date/Time Associated Diagnosis Comments CHEMISTRY-OUTSIDE Routine 03/19/2024 documented in this encounter Results * (ABNORMAL) CHEMISTRY-OUTSIDE (03/19/2024) Not all results display below - see scan for full detail SCAN INCLUDES: PT INR, CBCD OUTSIDE LAB (SEE SCANNED REPORT) CREATININE-OUTSID E LAB OUTSIDE LAB (SEE SCANNED [...] LAB OUTSIDE LAB (SEE SCANNED REPORT) HEMOGLOBIN, [id number] LAB OUTSIDE LAB (SEE SCANNED REPORT) PHOSPHORUS-OUTSID E LAB OUTSIDE LAB (SEE SCANNED REPORT) PTH-OUTSIDE LAB OUTS [place] LAB (SEE SCANNED REPORT) MICROALBUMIN RATIO-OUTSIDE LAB OUTSIDE LA B (SEE SCANNED REPORT) PROTEIN, UA-OUTSIDE LAB OUTSIDE LAB (SEE SCANNED REPORT) HGB 7.9(A) 14.0 - 18.0 G/DL OUTSIDE LAB (SEE SCANNED REPORT) 03/19/2024 [facility] OUTSIDE LAB (SEE SCANNED REPORT) documented in this encounter Advance Directives Documents on File Type Date Recorded Patient Instructional Technology Director Expl anation Advance Directives and Living Will 12/11/2022 ADVANCE DIRECTIVE / LIVING WILL LIVING WILL Power of Drill Press Operator Numerical Control 12/11/2022 POWER OF A TTORNEY Latest Code [...] the patient have Health Care Power of Drill Press Operator Numerical Control? No Care Teams Tear Down Worker Relationship Specialty Start Date End Date Francisco Cisse MD [address] [facility] [place] [address] PCP - General Internal Medicine 09/04/21 documented as of this encounter
--- OUTSIDE RECORDS SUMMARY | 2024-03-21 10:46 | External Medical Summary | Summary of Care ---
Author Name Unknown Organization [facility] Address [address] [facility] [address] Phone [phone] Care Team Providers Care Implementation Manager Name Role Phone Francisco Cisse MD Primary Care Provider + Encounter Details Date Type Department Care Team (Late st Contact Info) Description 03/19/2024 Result Scan Unspecified Department Lamar Tatum CRNP [address] [place] [address] <No scans attached> Allergies No known active [...] Team (Late st Contact Info) Description 03/23/2024 11:00 AM EDT Office Visit Transplant Clinic, [place] [address] [address] [place], [place] [phone] Brennan Burns MD [address] [place], [place] Abhishek Galindo MD [address] [place], [place] Moni Roper LSW [address] [place], [place] Nurse [facility] [address] [place] [address] 03/23/2024 2:00 PM EDT Office Visit Radiology, [place] [address] [place] [address] Chavez Sapp MD [address] [place] [address] 03/24/2024 2:30 PM EDT Office Visit Hematology/Oncology [facility] 200 [facility] [place] [address] Ayaka Tatum CRNP 400 [place] [address] 03/30/2024 12:00 PM EDT Office Visit Family Practice [facility] 132 [facility] [place] [address] Kristen Vences DO 132 [facility] [place] [address] 03/31/2024 7:05 AM EDT Laboratory Lab Mobile Phlebotomy [facility] [address] [facility] [facility] [place] [address] Mvmg, Gml Mobile Home Draw [address] [facility] [place] [address] 04/07/2024 10:00 AM EDT Office Visit Gastroenterology, [facility] [place] [address] Lamar Tatum CRNP [address] [place] [address] 04/14/2024 7:05 AM EDT Laboratory Lab Mobile Phlebotomy [facility] [address] [employer] [place] [address] Mvmg, Gml Mobile Home Draw [address] [place] [address] 04/28/2024 7:05 AM EDT Laboratory Lab Mobile Phlebotomy [facility] [address] [place] [address] Mvmg, Gml Mobile Home Draw [address] [employer] [place] [address] 05/12/2024 7:05 AM EDT Laboratory Lab Mobile Phlebotomy [facility] [address] [place] [address] Mvmg, Gml Mobile Home Draw [address] [employer] [place] [address] 2024 2:30 PM EDT Office Visit UrologLynnette Solares [address] [place] [address] [place] [address] Frank Peraza MD [address] [place] [address] 05/26/2024 7:05 AM EDT Laboratory Lab Mobile Phlebotomy [facility] [address] [place] [address] Mvmg, Gml Mobile Home Draw [address] [place] [address] 06/09/2024 7:05 AM EDT Laboratory Lab Mobile Phlebotomy [facility] [address] [place] [address] Mvmg, Gml Mobile Home Draw [address] [place] [address] 06/23/2024 7:05 AM EDT Laboratory Lab Mobile Phlebotomy [facility] [address] [place] [address] Mvmg, Gml Mobile Home Draw [address] [place] [address] 07/07/2024 7:05 AM EDT Laboratory Lab Mobile Phlebotomy [facility] [address] [place] [address] Mvmg, Gml Mobile Home Draw [address] [facility] [place] [address] 07/21/2024 7:05 AM EDT Laboratory Lab Mobile Phlebotomy [facility] [address] [facility] [place] [address] Mvmg, Gml Mobile Home Draw [address] [facility] [place] [address] 08/04/2024 7:05 AM EDT Laboratory Lab Mobile Phlebotomy [facility] [address] [facility] [place] [address] Mvmg, Gml Mobile Home Draw [address] [facility] [place] [address] 08/18/2024 7:05 AM EDT Laboratory Lab Mobile Phlebotomy [facility] [address] [facility] [place] [address] Mvmg, Gml Mobile Home Draw [address] [facility] [place] [address] 08/20/2024 10:15 AM EDT Office Visit Ophthalmology, [facility] 132 [facility] [place] [address] Cody Gonzalez, [address] [place] [address] [place] [address] 09/01/2024 7:05 AM EDT Laboratory Lab Mobile Phlebotomy [facility] [address] [facility] [place] [address] Mvmg, Gml Mobile Home Draw [address] [facility] [place] [address] 09/15/2024 7:05 AM EDT Laboratory Lab Mobile Phlebotomy [facility] [address] [facility] [place] [address] Mvmg, Gml Mobile Home Draw [address] [facility] [place] [address] 10/12/2024 10:20 AM EST Office Visit Pulmonary Medicine, [facility] 132 [facility] [place] [address] Jordan Stanley MD [address] [place] [address] Scheduled Procedures Name Priority Associated Diagnoses Date/Ti [...] Additional history exists CKD PHOS USE SMARTSET 76443 02/25/202501/31, 01/28/2023, 07/26/2022, Additional history exists CKD HGB USE SMARTSET 77261 03/19/202503/19, 03/17/2024, 03/17/2024, Additional history exists Lipid Panel [...] this encounter Medical Devices Implanted Type Area Wastewater Treatment Plant Supervisor Device Identifier Shelf Expiration Date Model / Serial / Lot Clareon Iol Aspheric Hydrophobic Acrylic Iol Implanted:Qty: 1 on 04/23/2023 by Cody Gonzalez DO at OR [facility] Lens Left: Eye 11/12/2025 CNA0T0 / [id number] / Viatorr Tips Endoprosthesis 8-10 Mm X 8cm / 2cm Implanted:Qty: 1 on 10/07/2020 by Go Alvarado MD at [facility] Right: Abdomen 03/03/2023 [id number] / / [id number] Description:Viatorr TIPS End oprosthesis 8-10 mm x 8cm / 2cm, Manufactored by [employer] Syr Pf 2ml Embospheres 100-300 - [id number] Implanted:Qty: 1 on 04/18/2021 by Kevin Lim DO at OR [facility] Left: Abdomen [employer] [id number] 11/25/2023 S220GH / / [id number] Lipiodol Injection - [id number] Implanted:Qty: 1 on 03/28/2022 at [facility] [employer] 03/01/2023 923[address]-51 01-2 / / [id number] Syr Pf 2ml Embospheres 100-300 - [id number] Implanted:Qty: 1 on 03/28/2022 at [facility] [employer] [id number] 08/31/2024 S220 / / [id number] -[id number] Clareon Iol Aspheric Hydrophobic Acrylic Iol Implanted:Qty: 1 on 04/02/2023 by Cody Gonzalez DO at [facility] Right: Eye JAZMIN 11/12/2025 CNA0T0 / [id number] / documented as of this encounter Procedures Procedure Name Priority Date/Time Associated Diagnosis Comments OUTSIDE LAB RESULTS 03/19/2024 documented in this encounter Results * OUTSIDE LAB RESULTS (03/19/2024) 03/19/2024 [facility] documented in this encounter Advance Directives Documents on File Type Date Recorded 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 No Care Teams Implementation Manager Relationship Specialty Start Date End Date Francisco Cisse MD [address] [place] [address] PCP - General Internal Medicine 09/04/21 documented as of this encounter
== END 2024-03-20 13:15 | disposition home or self-care (01) ==
LOC: EDINP 15:18 → ED 15:18 → SUATTDRO 18:33 → EDINP 20:50

== ENCOUNTER 2024-05-03 02:20 | Inpatient (IN) ==
--- OUTSIDE RECORDS SUMMARY | 2024-05-03 02:30 | External Medical Summary ---
Author Name Unknown Address Unknown Organization K01:LABORATORY [facility] - [address] [facility] [address] Laboratory Report Ordering Provider Test Date Status TILAONIELCHELSEY 04/28/2024 10:35:00 Final Prior to paracentesis Observation Date Value Abnormality Reference (Units ) Status SYNC LEUKOCYTES IN BLOOD BY AUTOMATED COUNT 04/28/2024 10:35:00 3.53 Below low normal 4.00-10.80 (K/uL) Final Segs 04/28/2024 10:35:00 66.9 40.0-75.0 (%) Final Lymphs % 04/28/2024 10:35:00 19.0 18.0-42.0 (%) Final Monos 04/28/2024 10:35:00 5.9 1.0-11.0 (%) Final Eosinophils 04/28/2024 10:35:00 6.5 Above high normal 0.0-6.0 (%) Final Basos 04/28/2024 10:35:00 0.6 0.0-2.0 (%) Final Immature Granulocyte, Percent 04/28/2024 10:35:00 1.1 0.0-2.0 (%) Final Absolute Segs 04/28/2024 10:35:00 2.36 1.80-7.70 (K/uL) Final Lymphs, absolute 04/28/2024 10:35:00 0.67 Below low normal 1.00-4.80 (K/ul) Final Monos, Abs 04/28/2024 10:35:00 0.21 0.00-1.10 (K/uL) Final Eos, Abs 04/28/2024 10:35:00 0.23 0.00-0.70 (K/uL) Final Basos, Abs 04/28/2024 10:35:00 0.02 0.00-0.20 (K/uL) Final Immature Granulocytes, Number 04/28/2024 10:35:00 0.04 0.00-0.20 (K/uL) Final Performing Location LABORATORY [facility] - [facility] [address]. [facility] [address]
--- OUTSIDE RECORDS SUMMARY | 2024-05-03 02:30 | External Medical Summary | Summary of Care ---
Author Name Unknown Organization [facility] Address [address] [place] [address] Phone [phone] Care Team Providers Care Line Haul Owner Operator Name Role Phone Francisco Cisse MD Primary Care Provider + Reason for Visit * Reason Onset Date Comments Follow Up 04/20/2024 Encounter Details Date Type Department Care Team (Late st Contact Info) Description 04/20/2024 Telephone Gastroenterology, [facility] [address] [place] [address] Lamar Tatum CRNP [address] [place] [address] Follow Up Allergies No known active allergiesdocumented as of this encounter (statuses as of 04/20/2024) Medications Medication Sig Dispensed Refills Start Date End Date Status Tylenol 325 MG Oral Capsule (Acetaminophen) Take 650 mg by mouth every 8 hours as needed for Pain (fever). Active OneTouch Verio In Vitro Strip (Glucose Blood)Indications:Ty pe 2 diabetes mellitus with hemoglobin A1c goal of less than 7.0% (HCC) Use to test blood sugars 3 times a day 300 Strip 5 09/27/2022 Active BD Pen Needle Elizabeth 2nd Gen 32G X 4 MM USE DIRECTED TO ADMINISTER INSULIN AT DINNER DAILY 09/25/2022 Active Mirtazapine 30 MG Oral Tablet [...] Men 50+ Oral Tablet Take by mouth. Active High Potency Iron 65 MG Oral Tablet Take by mouth. Active Zinc 50 MG Oral Capsule Take 1 Capsule by mouth in the morning. Active N-Acetyl Cysteine 600 MG Oral Tablet (Acetylcysteine (Nutrient)) Take by mouth. Active FreeStyle Wang 2 Sensor Use as directed. Every 14 days 2 Each 5 05/28/2023 Active Probiotic (Lactobacillus) Oral Capsule 1 Capsule. 05/17/2023 Active Furosemide 20 MG Oral Tablet (Lasix)Indications:C irrhosis of liver with ascites, unspecified hepatic cirrhosis type (HCC) Take 2 Tablets by mouth in the morning. 180 Tablet 3 07/30/2023 Active oxygen IN GAS Use 2 L/min(Oxygen) as directed at bedtime. Active Albumin Human 25 % Intravenous SolutionIndications: Cirrhosis of liver with ascites, unspecified hepatic cirrhosis type (HCC) 25Gm before and after paracentesis 100 mL 08/22/2023 Active Metoclopramide HCl 5 MG Oral [...] the morning. 90 Tablet 1 09/02/2023 Active Allopurinol 100 MG Oral Tablet (Zyloprim)Indication [...] SoloStar 100 UNIT/ML Subcutaneous Solution Pen-injector once. 11/13/2023 Active Albumin Human 25 % Intravenous SolutionIndications: [...] to 60 minute each unit 50 mL 02/27/2024 Active Triamcinolone Acetonide 0.1 % External Cream (Aristocort) Apply to psoriatic lesions on arms, legs, hands, feet, chest, back, abdomen twice a day as needed for 2-3 weeks 453.6 g 03/13/2024 Active Albumin Human 25 % Intravenous [...] each unit 300 mL 100 03/17/2024 Active Mag64 64 MG Oral Tablet Delayed Release Take 1 Tablet by mouth in the morning. Active Potassium Chloride Stephanie ER 20 MEQ Oral Tablet Extended Release 1 Tablet in the morning. 03/20/2024 Active Cefdinir 300 MG Oral Capsule (Omnicef) Take 1 Capsule by mouth in the morning and 1 Capsule before bedtime. At DC 03/20/24. 03/26/2024 Active Solifenacin Succinate 5 MG Oral Tablet (VESIcare) Take 1 Tablet by mouth in the morning. 30 Tablet 6 04/14/2024 Active Cholestyramine 4 GM Oral Packet (Questran) Take 1 Packet by mouth in the morning and 1 Packet before bedtime. Mix with water and drink before a meal.. 60 Packet 5 04/16/2024 Active Sulfamethoxazole-Tri methoprim 800-160 MG Oral Tablet (Bactrim DS) Take 1 Tablet by mouth in the morning and 1 Tablet before bedtime. Use as directed.. 30 Tablet 04/16/2024 Active documented as of this encounter (statuses as of 04/20/2024) Active Problems Problem Noted Date Diagnosed Date [...] as of this encounter (statuses as of 04/20/2024) Resolved Problems Problem Noted Date Diagnosed Date [...] as of this encounter (statuses as of 04/20/2024) Immunizations Name Administration Dates Next Due COVID-19 [...] encounter Miscellaneous Notes * Telephone Encounter - Millie Whitehead RN - 04/20/2024 12:17 PM EDT Spoke to patient. He is going to the hospital due to the blood clots. He is passing clots with his urine, not his stool FYI Lorella, this is why he missed today's appointment. Thanks * Telephone Encounter - Nimisha Vang OSA - 04/20/2024 11:33 AM EDT Pt calling in very bad pain thought his appt was for 12:30 not 11:30 wondering if a nurse or dr mejíal him he is in very bad pain when going to the bathroom its all blood and is passing blood clotspt can be reached at [phone] documented in this encounter Plan of Treatment Upcoming Encounters Date Type Department Care Team (Late st Contact Info) Description 04/28/2024 7:05 AM EDT Laboratory Lab Mobile Phlebotomy [facility] [address] [place] [address] Mvmg, [facility] Mobile Home Draw [address] [employer] [facility] [place] [address] 05/06/2024 11:30 AM EDT Appointment Interventional Radiology [facility], [address] 1st [address] [place] [address] 05/12/2024 7:05 AM EDT Laboratory Lab Mobile Phlebotomy [facility] [address] [employer] [facility] [place] [address] Mvmg, [facility] Mobile Home Draw [address] [facility] [place] [address] 05/19/2024 9:20 AM EDT Office Visit Family Practice [facility] [address] [place] [address] [address] Kristen Vences DO [address] [place] [address] 2024 2:30 PM EDT Office Visit Urology Lynnette Fitzpatrick [address] [place] [address] [place] [address] Frank Peraza MD [address] [place] [address] [place] [address] 05/26/2024 7:05 AM EDT Laboratory Lab Mobile Phlebotomy [facility] [address] [place] [address] M[facility]mg, [facility] Draw [address] [facility] [place] [address] 06/09/2024 7:05 AM EDT Laboratory Lab Mobile Phlebotomy [facility] [address] [place], [place] [address] Mvmg, [facility] Draw [address] [facility] [place] [address] 06/23/2024 7:05 AM EDT Laboratory Lab Mobile Phlebotomy [facility] [address] [place], [place] [address] M[facility]mg, [facility] Draw [address] [facility] [place], [place] [address] 06/23/2024 2:00 PM EDT Office Visit Hematology/Oncology [facility] [place] [address] [place] [id number] Ayaka Tatum, CORDUROY CUTTER OPERATOR [address] [facility] [place] [address] 07/07/2024 7:05 AM EDT Laboratory Lab Mobile Phlebotomy [facility] [address] [place], [place] [address] Mvmg, [facility] Draw [address] [facility] [place], [place] [address] 07/21/2024 7:05 AM EDT Laboratory Lab Mobile Phlebotomy [facility] [address] [facility] [place] [address] Mvmg, [facility] Draw [address] [facility] [place] [address] 08/04/2024 7:05 AM EDT Laboratory Lab Mobile Phlebotomy [facility] [address] [place] [address] Mvmg, [facility] Draw [address] [place], [place] [address] 08/18/2024 7:05 AM EDT Laboratory Lab Mobile Phlebotomy [facility] [address] [place], [place] [address] Mvmg, [facility] Draw [address] [facility] [place] [address] 08/20/2024 10:15 AM EDT Office Visit Ophthalmology, [facility] [address] [place] [address] Cody Gonzalez, DO [address] [facility] [place] [address] 09/01/2024 7:05 AM EDT Laboratory Lab Mobile Phlebotomy [facility] [address] [place] [address] Mvmg, [facility] Draw [address] [facility] [place], [place] [address] 09/15/2024 7:05 AM EDT Laboratory Lab Mobile Phlebotomy [facility] [address] [place] [address] Mvmg, [facility] Draw [address] [facility] [place] [address] 10/12/2024 10:20 AM EST Office Visit Pulmonary Medicine, [address] [address] Jordan Stanley [facility] [address] [facility] [address] Scheduled Procedures Name Priority Associated Diagnoses Date/Ti me COLONOSCOPY FLEXIBLE PROXIMAL DIAGNOSTIC Recall History of colonic polyps Portal hypertensive gastropathy (HCC) ESOPHAGOGASTRODUODENOSCOPY ( EGD), FLEXIBLE, TRANSORAL, DIAGNOSTIC Recall History of colonic polyps Portal hypertensive gastropathy (HCC) Health Maintenance Due Date Last Done Comments Cologuard 1995 Fecal Occult Blood Test 05/08/2015 05/08/2014 Depression Screening 05/03/2022 05/03/2021 COVID-19 Vaccine ( season) 2023 10/18/2023, 03/08/2021, 02/15/2021 Zoster Vaccines (2 of 2) 12/13/2023 10/18/2023 Diabetic Eye Exam 01/17/2024 01/17/2023, , 01/17/2023, Additional history exists Diabetic Foot Exam 03/06/2024 03/06/2023, 0 01/03/2022, 03/02/2021, Additional history exists Albumin/Creatinine Ratio 07/12/2024 023, 10/01/2022, 09/11/2021, Additional history exists Colonoscopy 08/09/2024 08/09/2023, 06/2022, 11/07/2022, Additional history exists Colorectal Cancer Screening 08/09/2024 GFR 10/08/2024 04/07/2024, 01/31, 02/13/2024, Additional history exists HbA1c 10/08/2024 04/07/2024, 11/02, 05/28/2023, Additional history exists CKD PHOS USE SMARTSET 24064 04/07/202506/2024, 02/26/2024, 01/28/2023, Additional history exists CKD HGB USE SMARTSET 48878 04/14/202504/14, 04/14/2024, 04/07/2024, Additional history exists Sigmoidoscopy 04/12/2027 04/12/2022 Lipid Panel 04/07/2029 04/07/2024, 01/03, 11/20/2021, Additional history exists DTaP,Tdap,and Td Vaccines (3 - Td or Tdap) 09/28/2032 09/28/2022, 02/12/2011, 12/19/1999 Pneumococcal Vaccine: 65+ Years Completed 09/14/2022, 08/28/2022, 05/01/2017, Additional history exists RETIRED - COLONOSCOPY-ANNUAL AGES 18-100 Discontinued 08/09/2023, 11/07/2022, 11/07/2022, Additional history exists RETIRED - COLONOSCOPY-EVERY 5 YRS AGES 18-100 Discontinued 08/09/2023, [...] this encounter Medical Devices Implanted Type Area Chyron Operator Device Identifier Shelf Expiration Date Model / Serial / Lot Clareon Iol Aspheric Hydrophobic Acrylic Iol Implanted:Qty: 1 on 04/23/2023 by Cody Gonzalez DO at OR [facility] Lens Left: Eye 11/12/2025 [id number] / [id number] / Viatorr Tips Endoprosthesis 8-10 Mm X 8cm / 2cm Implanted:Qty: 1 on 10/07/2020 by Go Alvarado MD at [facility] Right: Abdomen 03/03/2023 [id number] / / [id number] Description:Viatorr TIPS End oprosthesis 8-10 mm x 8cm / 2cm, Manufactored by [employer] Syr Pf 2ml Embospheres 100-300 - [id number] Implanted:Qty: 1 on 04/18/2021 by Kevin Lim DO at OR [facility] Left: Abdomen [employer] [id number] 11/25/2023 S220GH / / [id number] Lipiodol Injection - [id number] Implanted:Qty: 1 on 03/28/2022 at [facility] [employer] 03/01/2023 [id number] 01-2 / / [id number] Syr Pf 2ml Embospheres 100-300 - [id number] Implanted:Qty: 1 on 03/28/2022 at [facility] [employer] [id number] 08/31/2024 S220GH / / [id number] Clareon Iol Aspheric Hydrophobic Acrylic Iol Implanted:Qty: 1 on 04/02/2023 by Cody Gonzalez DO at OR [facility] Right: Eye JAZMIN 11/12/2025 CNA0T0 / [id number] / documented as of this encounter Advance Directives Documents on File Type Date Recorded Patient Manager File Expl anation Advance Directives and Living Will 12/11/2022 ADVANCE DIRECTIVE / LIVING WILL LIVING WILL Power of Cot Assembler 12/11/2022 POWER OF A TTORNEY * Full Code (Latest Code Status on File) Date Activated Date Inactivated Comments 01/30/2024 2:07 PM 01/30/2024 8:40 PM This order r eflects the patients wishes and were consensually agreed upon. Question Answer Comments Discussion of Advance Directives occurred with: Patient * Full Code Date Activated Date Inactivated Comments 01/30/2024 10:35 AM 01/30/2024 2:07 PM This order reflects the patients wishes and were consensually agreed upon. Question Answer Comments Discussion of Advance Directives occurred with: Patient * Full Code Date Activated Date Inactivated Comments 04/23/2023 8:54 AM 04/23/2023 3:33 PM Question Answer Comments Discussion of Advance Direct rico occurred with: Not Discussed due to patient's condition * Full Code Date Activated Date Inactivated Comments 04/02/2023 12:04 PM 04/02/2023 7:22 PM Question Answer Comments Discussion of Advance Direct rico occurred with: Not Discussed due to patient's condition * Full Code Date Activated Date Inactivated Comments 10/07/2020 1:06 PM 10/08/2020 5:46 PM This order r eflects the patients wishes and were consensually agreed upon. Question Answer Comments Discussion of Advance Directives occurred with: Patient Does the patient have a Living Will? No Does the patient have Health Care Power of Attor dino? No Care Teams Line Haul Owner Operator Relationship Specialty Start Date End Date Francisco Cisse MD [address] [place] [address] PCP - General Internal Medicine 09/04/21 documented as of this encounter
--- OUTSIDE RECORDS SUMMARY | 2024-05-03 02:30 | External Medical Summary ---
Author Name Unknown Address Unknown Organization K01:[facility] [place] [address] [facility] [address] [facility] [address] Laboratory Report Ordering Provider Test Date Status CHELSEY ADAMS 04/28/2024 10:35:00 Final Prior to paracentesis Observation Date Value Abnormality Reference (Units ) Status WBC, Total 04/28/2024 10:35:00 3.53 Below low normal 4.00-10.80 (K/uL) Final RBC 04/28/2024 10:35:00 2.41 4.50-5.25 (M/uL) Final Hemoglobin 04/28/2024 10:35:00 7.8 Below low normal 14.0-16.8 (g/dL) Final HCT 04/28/2024 10:35:00 24.5 Below low normal 40.0-48.4 (%) Final MCV 04/28/2024 10:35:00 101.7 82.0-99.5 (fL) Final MCH 04/28/2024 10:35:00 32.4 27.0-34.0 (pg) Final MCHC 04/28/2024 10:35:00 31.8 32.0-36.0 (g/dL) Final RDW 04/28/2024 10:35:00 21.2 11.5-15.5 (%) Final Platelets 04/28/2024 10:35:00 100 Below low normal 140-400 (K/uL) Final MPV 04/28/2024 10:35:00 12.2 6.6-11.1 (fL) Final Nucleated erythrocytes/100 leukocytes [Ratio] in Blood by Automated count 04/28/2024 10:35:00 0 <=0 (/100 WBCs) Final Performing Location [facility] [place] [address] [place] [address]
--- OUTSIDE RECORDS SUMMARY | 2024-05-03 02:30 | External Medical Summary | Summary of Care ---
Author Name Unknown Organization [facility] Address [address] [place] [address] Phone [phone] Care Team Providers Care Hand Welt Butter Name Role Phone Francisco Cisse MD Primary Care Provider + Reason for Visit * Reason Onset Date Comments Pre-Op Testing 01/27/2024 Encounter Details Date Type Department Care Team (Late st Contact Info) Description 01/27/2024 Telephone Pre Surgery Center, [facility] [address] [place] [address] Frank Peraza MD [address] [place] [address] [place] [address] Pre-Op Testing Allergies No known active allergiesdocumented as of this encounter (statuses as of 04/27/2024) Medications Medication Sig Dispensed Refills Start Date [...] UNIT/ML Subcutaneous Solution Pen-injector once. 11/13/2023 Active documented as of this encounter (statuses as of 04/27/2024) Active Problems Problem Noted Date Diagnosed Date [...] as of this encounter (statuses as of 04/27/2024) Resolved Problems Problem Noted Date Diagnosed Date [...] as of this encounter (statuses as of 04/27/2024) Immunizations Name Administration Dates Next Due COVID-19 mRNA, LNP-s, No Pre serve, 2-Dose Series (Pressi) 03/08/2021,02/15/2021 HepA Inact/HepB Recomb>=18yrs old 12/04/2019,04/2019,05/20/2019 11/19/2019 PPD 06/18/2017, 3,01/09/2012,06/2011 Pneumococcal Conjugate Vacc, 13 Valent (Prevnar) 05/01/2017 Pneumococcal Polysaccharide PPV23 (Pneumovax) 08/28/2022,10/25/2015,07/14/2012 Season Influenza, Quad, PF, Adjuvanted, 65+ Yrs, IM (FLUAD) 10/07/2020(Deferred: Patient Refused - pt says he already had his shot last [facility] at [facility] Handy Lyons and Mckinley Cobian made aware) [...] encounter Miscellaneous Notes * Telephone Encounter - Melody Olson RN - 01/27/2024 10:13 AM EST I will add a note to the case and inform SDS that patient will need to arrive early to have the labs drawn pre-op. Thanks. * Telephone Encounter - Frank Peraza MD - 01/27/2024 9:30 AM EST CBC ordered, to be done NATY preop. Thx, HM * Telephone Encounter - Melody Olson, RN - 01/27/2024 8:45 AM EST While reviewing patient's chart for completion prior to his upcoming surgery on with Dr. Peraza, it was noted that his H&H was low and that he is scheduled for a transfusion on 01/27/24 @ [facility]. It also appears he will have a Venofer infusion on 01/29 at [facility]. Just wanted to be sure you were aware in case you wanted any labs day of surgery. 01/24 TE excerpt: Per JEFF Williamson, pt hemoglobin now 7.4. [...] Faxed orders: Consent, T&S, Transfusion order to [facility] and [facility]. Called Central Scheduling, spoke to Kasandra. Pt is scheduled. Called patients son Alex back, he is aware of the appointment date and time. Aware that patient won't come for Venofer on Saturday, we will call to reschedule. [id number] documented in this encounter Plan of Treatment Upcoming Encounters Date Type Department Care Team (Late st Contact Info) Description 04/28/2024 7:05 AM EDT Laboratory Lab Mobile Phlebotomy [facility] [address] [address] Mv[facility], [facility] Mobile Home Draw [address] [place], [place] [address] 05/06/2024 11:30 AM EDT Appointment Interventional Radiology [facility], [address] 1st Floor [address] [place] [address] 05/12/2024 7:05 AM EDT Laboratory Lab Mobile Phlebotomy [facility] [address] [place] [address] M[facility], [facility] Mobile Home Draw [address] [facility] [place], [place] [address] 05/19/2024 9:20 AM EDT Office Visit Family Practice [facility] [address] [address] [address] Kristen Vences DO [address] [place] [address] 2024 2:30 PM EDT Office Visit Urology Lynnette Fitzpatrick [address] [place] [address] [place] [address] Frank Peraza MD [address] [place] [address] [place] [address] 05/26/2024 7:05 AM EDT Laboratory Lab Mobile Phlebotomy [facility] [address] [place] [address] Mvmg, [facility] Draw [address] [place], [place] [address] 06/09/2024 7:05 AM EDT Laboratory Lab Mobile Phlebotomy [facility] [address] [place] [address] Mvmg, [facility] Draw [address] [place] [address] 06/23/2024 7:05 AM EDT Laboratory Lab Mobile Phlebotomy [facility] [address] [place] [address] Mvmg, [facility] Home Draw [address] [place], [place] [address] 06/23/2024 2:00 PM EDT Office Visit Hematology/Oncology [facility] [place] [address] [facility] [place], [place] [address] Ayaka Tatum CRNP [address] [facility] [place] [address] 07/07/2024 7:05 AM EDT Laboratory Lab Mobile Phlebotomy [facility] [address] [place], [place] [address] Mvmg, [facility] Mobile Home Draw [address] [employer] [facility] [place], [place] [address] 07/21/2024 7:05 AM EDT Laboratory Lab Mobile Phlebotomy [facility] [address] [place], [place] [address] Mvmg, [facility] Draw [address] [place] [address] 08/04/2024 7:05 AM EDT Laboratory Lab Mobile Phlebotomy [facility] [address] [place] [address] Mvmg, [facility] Draw [address] [facility] [place] [address] 08/18/2024 7:05 AM EDT Laboratory Lab Mobile Phlebotomy [facility] [address] [place], [place] [address] Mvmg, [facility] Mobile [facility] Draw [address] [employer] [facility] [place] [address] 08/20/2024 10:15 AM EDT Office Visit Ophthalmology, [facility] [address] [facility] [place] [address] Cody Gonzalez DO [address] [facility] [place] [address] 09/01/2024 7:05 AM EDT Laboratory Lab Mobile Phlebotomy [facility] [address] [place], [place] [address] Mvmg, [facility] Draw [address] [facility] [place] [address] 09/15/2024 7:05 AM EDT Laboratory Lab Mobile Phlebotomy [facility] [address] [facility] [place] [address] Mvmg, [facility] Draw [address] [facility] [place] [address] 10/12/2024 10:20 AM EST Office Visit Pulmonary Medicine, [facility] [address] [place] [address] Jordan Stanley MD [address] [place] [address] Scheduled Procedures Name Priority Associated Diagnoses Date/Ti [...] 09/11/2021, Additional history exists Colonoscopy 08/09/2024 08/09/2023, 12/06/2022, 11/07/2022, Additional history exists Colorectal Cancer Screening 08/09/2024 GFR 10/08/2024 04/07/2024, 01/31, 02/13/2024, Additional history exists HbA1c 10/08/2024 04/07/2024, 11/02, 05/28/2023, Additional history exists CKD PHOS USE SMARTSET 86450 04/07/2025 05/0 06/2024, 02/26/2024, 01/28/2023, Additional history exists CKD HGB USE SMARTSET 14698 04/14/202504/14, 04/14/2024, 04/07/2024, Additional history exists Sigmoidoscopy [...] this encounter Medical Devices Implanted Type Area Hand Flesher Device Identifier Shelf Expiration Date Model / Serial / Lot Clareon Iol Aspheric Hydrophobic Acrylic Iol Implanted:Qty: 1 on 04/23/2023 by Cody Gonzalez DO at OR [facility] Lens Left: Eye 11/12/2025 CNA0T0 / [id number] / Viatorr Tips Endoprosthesis 8-10 Mm X 8cm / 2cm Implanted:Qty: 1 on 10/07/2020 by Go Alvarado MD at [facility] Right: Abdomen 03/03/2023 [id number] / / [id number] Description:Viatorr TIPS End oprosthesis 8-10 mm x 8cm / 2cm, Manufactored by [employer] Syr Pf 2ml Embospheres 100-300 - [id number] Implanted:Qty: 1 on 04/18/2021 by Kevin Lim DO at OR [facility] Left: Abdomen [employer] [id number] 11/25/2023 S220GH / / [id number] Lipiodol Injection - [id number] Implanted:Qty: 1 on 03/28/2022 at [facility] [employer] 03/01/2023 [id number] 01-2 / / [id number] Syr Pf 2ml Embospheres 100-300 - [id number] Implanted:Qty: 1 on 03/28/2022 at [facility] [employer] [id number] 08/31/2024 S220GH / / [id number] Clareon Iol Aspheric Hydrophobic Acrylic Iol Implanted:Qty: 1 on 04/02/2023 by Cody Gonzalez DO at OR [facility] Right: Eye JAZMIN 11/12/2025 CNA0T0 / [id number] / documented as of this encounter Visit Diagnoses Diagnosis Hematuria, gross- Primary Gross hematuria documented in this encounter Advance Directives Documents on File Type Date Recorded Patient Sap Portal Consultant Expl anation Advance Directives and Living Will 12/11/2022 ADVANCE DIRECTIVE / LIVING WILL LIVING WILL Power of Pie Bakery Laborer 12/11/2022 POWER OF A TTORNEY * Full [...] Power of Attor dino? No Care Teams Hand Welt Butter Relationship Specialty Start Date End Date Francisco Cisse MD [address] [facility] [place] [address] PCP - General Internal Medicine 09/04/21 documented as of this encounter
--- NOTE | 2024-05-03 02:33 | Emergency Department Note ---
Impression & Plan Chest pain, Pancytopenia, Anemia requiring transfusions, Thrombocytopenia, Acute kidney injury superimposed on chronic kidney disease, Elevated brain natriuretic peptide (BNP) level, Hyperglycemia, Hypocalcemia ED Provider Note HISTORY OF PRESENT ILLNESS: Patient is a 73-year-old male presenting with chest pain. Patient reports that chest pain started last evening. Reports the pain lasted for about 15 to 30 minutes and then went away on its own. He states that he then had another episode this morning. He states pain is worse with movement. Denies any radiation of the pain. Describes it as a sharp substernal sensation. Reports nausea but no vomiting. Reports "I am always short of breath." Denies any DVT or PE history. He has a history of prostate cancer is currently receiving radiation therapy, and send starting radiation he has had some hematuria with blood clots. He denies any fevers. Denies any DVT or PE history. Denies any anticoagulation use. Denies any history of cardiac stents. ROS: as above PHYSICAL EXAM: Constitutional: Patient appears in no acute distress. HENT: Head: Normocephalic and atraumatic. Eyes: EOMI, PERRL Mouth/Throat: Mucous membranes moist. Neck: Trachea midline. Neck supple. Cardiovascular: RRR, No murmurs, rubs or gallops. Intact distal pulses. Pulmonary/Chest: No respiratory distress. Breath sounds clear and equal bilaterally. No wheezes or rales. Abdominal: Abdomen soft, no tenderness, rebound or guarding. Musculoskeletal: No edema, tenderness or deformity noted. Skin: Warm and dry. No rash, erythema, pallor or cyanosis Psychiatric: Appropriate mood and affect for situation. Neurological: Alert and keenly responsive. CN II-XII grossly intact, moving all extremities equally and fully. MDM: - Vitals signs stable. - History obtained via patient. History as above. 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 At this time, monitor showed rate of 74 bpm with normal sinus rhythm, per my interpretation. - External medical records reviewed. GI consultation note dated 12/13/2023 was reviewed. 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 - EKG interpreted by myself showed normal sinus rhythm. Rate 71 bpm. QT prolonged at 460. No acute ischemic changes. Noted to have some ST depressions in leads V4-V6. However, no reciprocal changes. - Laboratory workup interpreted by myself showed pancytopenia (WBC 3.32; Hgb 6.1; plt 87); anemia (Hgb 6.1); stable electrolytes; elevated BUN (42); LUCRETIA on CKD (Cr 1.61); hyperglycemia (glucose 268); hypocalcemia (Ca 7.6); elevated AST (48); elevated total bilirubin (1.5); elevated BNP (184); normal troponin; elevated lipase (180) - CXR negative for pneumonia, per my interpretation - Patient given 1 mg IV ativan, as he was significantly anxious in the ER on arrival. - Discussed results with the patient. He was consented for blood. 2 units of packed red blood cells were ordered. - 1g IV calcium ordered in setting of anemia and blood transfusion - Discussion was had with outsole caser about patient's case and need for admission - Hospitalist consulted for admission - Patient admitted to [facility] service for further evaluation and management. I have personally spent 33 minutes of critical care time in the direct management of this patient. This includes bedside care, interpretation of diagnostic studies, and testing, discussion with consultants, patient, and family members, and other required patient management activities. This 33 minutes is in excess of all separately billable procedures. ASSESSMENT AND PLAN: Diagnosis: chest pain; pancytopenia; anemia requiring transfusion; thrombocytopenia; LUCRETIA on CKD; hyperglycemia; hypocalcemia; elevated BNP Plan: admit Past Med/Surg History Problem List (Updated 05/03/24 @ 03:51 by Ximena Lynn MD) Hypocalcemia (Acute) Hyperglycemia (Acute) Elevated brain natriuretic peptide (BNP) level (Acute) Acute kidney injury superimposed on chronic kidney disease (Acute) Thrombocytopenia (Acute) Anemia requiring transfusions (Acute) Pancytopenia (Acute) Chest pain (Acute) LUCRETIA (acute kidney injury) Hematuria (Acute) Anemia (Acute) Acute urinary retention (Acute) DM type 2 (diabetes mellitus, type 2) Irradiation cystitis with hematuria UTI (urinary tract infection) (Acute) Anemia (Acute) Liver cirrhosis secondary to DALTON (Acute) Closed T12 spinal fracture (Acute) Prostate cancer (Acute) Hx radiation CKD (chronic kidney disease) stage 3, GFR 30-59 ml/min (Acute) Insulin dependent type 2 diabetes mellitus Medical History (Updated 05/03/24 @ 03:51 by Ximena Lynn MD) Thrombocytopenia DM type 2 (diabetes mellitus, type 2) Hx of malignant neoplasm of prostate History of blood transfusion 11/2022 Hepatocellular carcinoma Spinal fracture of T12 vertebra History of recent hospitalization 06/2023 [facility] hepatic encephalopathy Liver spots Under surveillance, stable per patient Anxiety and depression Liver cirrhosis secondary to DALTON Anemia of chronic disease under surveillance History of panic attacks Gout No current issues GERD (gastroesophageal reflux disease) GAVE (gastric antral vascular ectasia) Hypertension Hx Esophageal varices EGD 05/22/23 ([facility]): Grade 1 varices in distal esophagus without high risk stigmata Upper GI bleed Hx Psoriasis Surgical History History of left cataract surgery History of right cataract surgery History of prostate biopsy malignant S/P TIPS (transjugular intrahepatic portosystemic shunt) History of esophagogastroduodenoscopy (EGD) Most recent 05/2023 [facility] History of colonoscopy with polypectomy History of tonsillectomy and adenoidectomy History of abdominal paracentesis Multiple, most recent 01/2023 Family History Father , "3/4 liver gone due to drinking" Colorectal cancer, Onset Age: 63 Mother Lung cancer Daughter Cancer cervical and thyroid cancers Ovarian cancer Other No family history of adverse response to anesthesia 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 Smoking Status: Never smoker Second Hand Exposure: No; Do You Dip or Chew Tobacco: No; Hx Alcohol Use: No Hx Substance Use: No Preferred Language: Mongolian Communication Ability: Effective Visual Impairment: No Limitations Hearing Ability: Normal Area Supervisor Required: No Beliefs That Will Affect Care: None marital status: Current Living Situation: Spouse Current Living Situation Comment: 1 level single family home 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 How many Children do You have: 6 How many Children do You have Comment: one , eldest daughter in her sleep from seizure disorder Feels Safe at Home: Yes Childhood Exposure to Second-Hand Smoke: Yes Diet Comment: "I watch my sugar, average fasting is 140 mg/dl" caffeine: Yes (cola, sugar free, decaf) during the past year weight has: remained stable Dental Care, Regularly: No Physical Activity Frequency: Does not Exercise Seatbelt Use: always Sunscreen Use: Yes Assistive Devices: Walker Allergies Allergies Allergy/AdvReac Type Severity Reaction Status Date / Time No Known Allergies Allergy Mild Verified 04/20/24 15:29 Home Meds Home Medications Medication Instructions Recorded Confirmed allopurinol 100 mg tablet 100 mg PO QAM 05/16/20 04/20/24 furosemide 20 mg tablet (Lasix) 40 mg PO QAM 11/02/22 04/20/24 Lactobacil.acidophilus-Bifido.animalis 1 cap PO QAM 05/17/23 04/20/24 5 billion cell sprinkle capsule (Probiotic) ferrous sulfate 325 mg (65 mg 650 mg PO QAM 05/17/23 04/20/24 iron) tablet (iron) [id number]-[id number] acid-vit 1 tab PO DAILY 05/17/23 04/20/24 K-lycop 400 mcg-20 mcg-370 mcg tablet (Men's 50 Plus Multivitamin) duloxetine 30 mg capsule,delayed 30 mg PO QAM 02/02/24 04/20/24 release pantoprazole 40 mg tablet,delayed 40 mg PO AMPM 02/02/24 04/20/24 release rifaximin 550 mg tablet (Xifaxan) 550 mg PO AMHS 02/02/24 04/20/24 metoclopramide HCl 5 mg tablet 5 mg PO TID PRN Nausea And Vomiting 02/20/24 04/20/24 acetaminophen 500 mg tablet 1,000 mg PO BID PRN Pain 03/19/24 04/20/24 acetylcysteine (bulk) 600 ea miscellaneous DAILY 03/20/24 04/20/24 finasteride 5 mg tablet 5 mg PO QAM 03/20/24 04/20/24 insulin glargine 100 unit/mL 26 unit subcut QPM 03/20/24 04/20/24 subcutaneous solution (Lantus U-100 Insulin) lactulose 10 gram oral packet 10 g PO BID PRN . 03/20/24 04/20/24 (Kristalose) mirtazapine 30 mg tablet 30 mg PO HS PRN Sleep 03/20/24 04/20/24 potassium chloride 20 mEq 20 meq PO DAILY 03/20/24 04/20/24 tablet,extended release(part/cryst) zinc gluconate 50 mg tablet 50 mg PO DAILY 03/20/24 04/20/24 cholestyramine (with sugar) 4 gram 1 ea PO BID PRN Diarrhea 04/20/24 04/20/24 powder for susp in a packet magnesium chloride 64 mg 64 mg PO DAILY 04/20/24 04/20/24 (magnesium chloride) tablet,delayed release (Mag 64) solifenacin 5 mg tablet 5 mg PO QAM 04/20/24 04/20/24 Results & Data (ED) Vital Signs Vital Signs - 24 hr 05/03/24 02:25 05/03/24 02:26 05/03/24 02:26 Temperature 36.7 C Temperature Source Oral Pulse Rate 72 73 Pulse Rate [Apical] Respiratory Rate 16 16 Respiratory Effort / Characteristics Non-Labored Respiratory Depth Normal Respiratory Pattern Regular Blood Pressure 132/55 L Blood Pressure [Right Arm] Blood Pressure Mean 80 Blood Pressure Mean [Right Arm] Pulse Oximetry 99 99 99 Oxygen Delivery Method Room Air Room Air Room Air Sepsis Recent Fever Within 48 Hours No Sepsis New/Unexplained Change in Mental Status N/A Sepsis Action Taken by Nursing No Action Required 05/03/24 02:40 05/03/24 03:00 Temperature Temperature Source Pulse Rate 69 Pulse Rate [Apical] 80 Respiratory Rate 16 Respiratory Effort / Characteristics Non-Labored Respiratory Depth Normal Respiratory Pattern Regular Blood Pressure Blood Pressure [Right Arm] 150/72 H Blood Pressure Mean Blood Pressure Mean [Right Arm] 98 Pulse Oximetry 97 Oxygen Delivery Method Room Air Sepsis Recent Fever Within 48 Hours Sepsis New/Unexplained Change in Mental Status Sepsis Action Taken by Nursing Laboratory Data 05/03/24 02:38 05/03/24 02:38 Lab Results 05/03/24 05/03/24 Range/Units 02:38 02:39 WBC 3.32 L (4.8-10.8) K/ul RBC 1.84 L (4.70-6.10) M/uL Hgb 6.1 L* (14.0-18.0) g/dl Hct 19.0 L* (42.0-52.0) % MCV 103.3 H (80.0-100.0) fL MCH 33.2 (25.0-34.0) pg MCHC 32.1 (32.0-36.0) g/dL RDW Std Deviation 79.6 H (36.4-46.3) fL RDW Coeff of Violetta 22.1 H (11.5-14.5) % Plt Count 87 L (130-400) K/uL MPV 11.9 (9.4-12.4) fL Immature Gran % (Auto) 0.9 % Neut % (Auto) 67.5 % Lymph % (Auto) 18.4 % Meigs % (Auto) 6.9 % Eos % (Auto) 5.4 % Baso % (Auto) 0.9 % Neut # (Auto) 2.24 (1.40-6.50) K/uL Lymph # (Auto) 0.61 L (1.20-3.40) K/uL Meigs # (Auto) 0.23 (0.11-0.59) K/uL Eos # (Auto) 0.18 (0.00-0.50) K/uL Baso # (Auto) 0.03 (0.00-0.20) K/uL Immature Gran # (Auto) 0.03 (0.01-0.20) K/uL Polychromasia 1+ Anisocytosis Present Tear Drop Cells 1+ PT 12.2 H (9.0-12.0) Seconds INR 1.1 (0.9-1.1) Sodium 138 (136-145) mmol/L Potassium 4.3 (3.5-5.1) mmol/L Chloride 111 H (98-107) mmol/L Carbon Dioxide 22 (21-32) mmol/L Anion Gap 5 (3-11) BUN 42 H (6-23) mg/dl Creatinine 1.61 H (0.6-1.4) mg/dl Est Cr Clr Drug Dosing 45.8 ml/min Est GFR ( Amer) 48.4 ml/min Est GFR (Non-Af Amer) 41.8 ml/min BUN/Creatinine Ratio 26.1 H (10-20) Glucose 268 H (70-99(Fasting)) mg/dl Calcium 7.6 L (8.6-10.3) mg/dl Magnesium 2.1 (1.7-2.4) mg/dl Total Bilirubin 1.5 H (0.2-1.0) mg/dl AST 48 H (13-39) U/L ALT 25 (7-52) U/L Alkaline Phosphatase 169 H (34-104) U/L Ammonia 40.0 (18-72) umol/L Troponin I High Sens 19.9 (0-20) pg/ml B-Natriuretic Peptide 184 H (0-100) pg/ml Total Protein 5.3 L (6.0-8.3) gm/dl Albumin 2.6 L (3.4-5.0) gm/dl Globulin 2.7 (2.5-4.0) gm/dl Albumin/Globulin Ratio 1.0 (0.9-2) Lipase 180 H (11-82) U/L Crossmatch See Detail Administered Medications Discontinued Medications Pantoprazole Sodium 80 mg/ (Dextrose) 120 mls @ 480 mls/hr IV ONE STA Stop: 05/03/24 03:19 Last Admin: 05/03/24 03:44 Dose: 480 mls/hr Documented By: DANISHA Famotidine (Pepcid 20mg Iv Push) 20 mg in 5 mls @ 2.5 mls/min IV NOW STA Stop: 05/03/24 03:06 Last Admin: 05/03/24 03:43 Dose: 2.5 mls/min Documented By: DANISHA Lorazepam (Lorazepam 1 Mg/1 Ml Syr Ed Inj Use) 1 mg IV ONE STA Stop: 05/03/24 02:51 Last Admin: 05/03/24 02:52 Dose: 1 mg Documented By: ALFREDO Discharge Plan Visit Data Chief Complaint: Chest Pain Stated Complaint: Chest Pain ED Provider: Ximena Lynn Discharge Problem: Chest pain, Pancytopenia, Anemia requiring transfusions, Thrombocytopenia, Acute kidney injury superimposed on chronic kidney disease, Elevated brain natriuretic peptide (BNP) level, Hyperglycemia, Hypocalcemia Forms Stand Alone Forms: My [facility] Prescriptions Prescriptions: No Action zinc gluconate 50 mg tablet 50 mg PO DAILY potassium chloride 20 mEq tablet,ER particles/crystals 20 meq PO DAILY acetylcysteine (bulk) Powder 600 ea miscellaneous DAILY allopurinol 100 mg Tablet 100 mg PO QAM furosemide [Lasix] 20 mg Tablet 40 mg PO QAM ferrous sulfate [iron] 325 mg (65 mg iron) Tablet 650 mg PO QAM Men's 50 Plus Multivitamin 400-20-370 mcg Tablet 1 tab PO DAILY Rx Instructions: Unable to verify OTC meds with patient at this date/time. Probiotic 5 billion cell Capsule, Sprinkle 1 cap PO QAM finasteride 5 mg tablet 5 mg PO QAM insulin glargine [Lantus U-100 Insulin] 100 unit/mL solution 26 unit subcut QPM pantoprazole 40 mg tablet,delayed release (DR/EC) 40 mg PO AMPM duloxetine 30 mg capsule,delayed release(DR/EC) 30 mg PO QAM Xifaxan 550 mg tablet 550 mg PO AMHS metoclopramide HCl 5 mg tablet 5 mg PO TID PRN (Reason: Nausea And Vomiting) mirtazapine 30 mg tablet 30 mg PO HS PRN (Reason: Sleep) acetaminophen 500 mg Tablet 1,000 mg PO BID MDD 2000mg/24hr PRN (Reason: Pain) lactulose [Kristalose] 10 gram packet 10 g PO BID PRN (Reason: .) Rx Instructions: hold for more than 3 more BMs cholestyramine (with sugar) 4 gram powder in packet 1 ea PO BID PRN (Reason: Diarrhea) Rx Instructions: new script, did not take any yet. solifenacin 5 mg tablet 5 mg PO QAM magnesium chloride [Mag 64] 64 mg Tablet,Delayed Release (Dr/Ec) 64 mg PO DAILY Referrals Referrals: Francisco Cisse MD [Primary Care Provider] -
[2024-05-03] MEDS: LORazepam 1 MG/1 ML SYR ED Inj Use IV STA (02:52)
[2024-05-03] MEDS ORDERED: SODIUM CHLORIDE 0.9% 250 ML IV PRN (03:04)
[2024-05-03 03:08] LABS: Albumin Level 2.6 gm/dl (3.4-5.0); BUN Creatinine Ratio 26.1 (10-20); Bilirubin,Total 1.5 mg/dl (0.2-1.0); Calcium 7.6 mg/dl (8.6-10.3); Creatinine Clr Calc Pharmacy 45.8 ml/min; Est GFR (African American) 48.4 ml/min; Est GFR (Non-African American) 41.8 ml/min; Globulin 2.7 gm/dl (2.5-4.0); Magnesium 2.1 mg/dl (1.7-2.4); Potassium 4.3 mmol/L (3.5-5.1); Total Protein 5.3 gm/dl (6.0-8.3)
[2024-05-03 03:12] LABS: Hemoglobin 6.1 g/dl (14.0-18.0); Mean Corpuscular Hemoglobin 33.2 pg (25.0-34.0); Mean Corpuscular Hgb Conc 32.1 g/dL (32.0-36.0); Mean Corpuscular Volume 103.3 fL (80.0-100.0); Mean Platelet Volume 11.9 fL (9.4-12.4); Platelet Count 87 K/uL (130-400); RDW Coefficient of Variation 22.1 % (11.5-14.5); RDW Standard Deviation 79.6 fL (36.4-46.3); Red Blood Count 1.84 M/uL (4.70-6.10); White Blood Count 3.32 K/ul (4.8-10.8)
[2024-05-03 03:14] LABS: Troponin I High Sensitivity 19.9 pg/ml (0-20)
[2024-05-03 03:19] LABS: INR 1.1 (0.9-1.1); Prothrombin Time 12.2 Seconds (9.0-12.0)
[2024-05-03 03:21] LABS: Anisocytosis Present; Basophils # (auto) 0.03 K/uL (0.00-0.20); Basophils % (auto) 0.9 %; Eosinophils # (auto) 0.18 K/uL (0.00-0.50); Eosinophils % (auto) 5.4 %; Immature Granulocytes # (auto) 0.03 K/uL (0.01-0.20); Immature Granulocytes % (auto) 0.9 %; Lymphocytes # (auto) 0.61 K/uL (1.20-3.40); Lymphocytes % (auto) 18.4 %; Monocytes # (auto) 0.23 K/uL (0.11-0.59); Monocytes % (auto) 6.9 %; Neutrophils # (auto) 2.24 K/uL (1.40-6.50); Neutrophils % (auto) 67.5 %; Polychromasia 1+; Tear Drop Cells 1+
[2024-05-03] MEDS: FAMOTIDINE 20MG IV PUSH 20 MG/5 ML SYR IV STA (03:43)
[2024-05-03] MEDS: PANTOprazole 80 MG in DEXTROSE 5% 100 ML IV STA (03:44)
[2024-05-03 03:53] LABS: Appearance Urine Cloudy (Clear); Bilirubin Urine Negative (Negative); Blood Urine 3+ (Negative); Color Urine Red; Glucose Urine UA Trace (Negative); Ketones Urine Negative (Negative); Leukocyte Esterase Urine Negative (Negative); Nitrite Urine Negative (Negative); Protein Urine 3+ (Negative); Specific Gravity Urine >= 1.030 (1.000-1.030); Urobilinogen Urine Negative (Negative)
[2024-05-03 03:56] LABS: Epithelial Cell Urine 0-2 /hpf (0-2)
[2024-05-03 03:57] LABS: RBC Urine >20 /hpf (0-2)
[2024-05-03 03:58] LABS: Bacteria Urine None Seen (None Seen)
[2024-05-03] MEDS: CALCIUM GLUCONATE 1,000 MG/60 ML BAG IV STA (04:04)
[2024-05-03] MEDS: SODIUM CHLORIDE 0.9% 1,000 ML IV STA (04:06)
--- NOTE | 2024-05-03 04:32 | History & Physical Report ---
Date of Service May 03, 2024 Assessment & Plan (1) Symptomatic anemia: Plan: acute on chronic anemia, hemoglobin drop from baseline secondary to progressive hx radiation cystitis, possible bladder tumor Secondary to persistent hematuria from radiation cystitis Right foot pain ? 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, no overt decompensation Recurrent hepatocellular carcinoma status post IR embolization, outpatient IR procedure contemplated 05/06 at [facility] José Luis Taveras hx portal vein thrombus as per records DM2 insulin requiring, well-controlled as of recent hemoglobin A1c of 5.2, January 2024 history GAVE/esophageal varices/portal hypertensive gastropathy/radiation proctitis/diverticulosis on endoscopy BPH/prostate cancer status post radiation, thoracic compression fracture Medical telemetry Transfuse PRBC to maintain patient's baseline hemoglobin of at least 8 Urology consult Re: Persistent hematuria causing recurrent admissions for s ymptomatic anemia Monitor creatinine response to IVF Plain R foot x-ray Obtained additional history from patient regarding foot pain once more awake. Reconcile home medications once patient more awake. Basal bolus insulin, ISS BG goal 1 10-1 40, carb count coverage DVT prophylaxis. SCDs Re: Thrombocytopenia/hematuria Full code Patient's son requesting updates from providers. Mr. Alex Hale, contact # [phone]. Text document was generated using Page[employer] voice recognition software. It may contain grammatical or spelling errors. Kindly contact undersigned for clarification of any documentation item in question. History of Present Illness Chief Complaint: Right foot pain, chest pain Primary Care Provider: Francisco Cisse MD History obtained from patient and records. Limited history from patient secondary to lethargic state post Ativan administration at the ER. 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 Multiple admissions (almost monthly) since 2021. Last 3 admissions for hematuria. Recent confinement confinement April 20 to 2023 for hematuria attributed to radiation cystitis and Proteus status post antibiotic Rx UTI. Hemoglobin 7.8 at time of discharge last week. Urology recommended outpatient hyperbaric oxygen therapy. Patient with persistent hematuria/blood clots in the urine following discharge from the hospital. Denies abdominal/flank pain, black/bloody stools. Patient experienced sudden onset right foot pain last night. May have had it before from possible gout. No recollection of recent trauma. No fever, no chills. Patient called EMS to home because of severe pain. Patient later complained to EMS of sharp chest pain with shortness of breath. Patient brought to the ER for evaluation. IV Ativan administered due to patient agitation. Patient currently lethargic and unable to answer most questions. 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 Allergies Allergy/AdvReac Type Severity Reaction Status Date / Time No Known Allergies Allergy Mild Verified 04/20/24 15:29 Home Medications Medication Instructions Recorded Confirmed Type allopurinol 100 mg tablet 100 mg PO QAM 05/16/20 04/20/24 History furosemide 20 mg tablet (Lasix) 40 mg PO QAM 11/02/22 04/20/24 History Lactobacil.acidophilus-Bifido.animalis 1 cap PO QAM 05/17/23 04/20/24 History 5 billion cell sprinkle capsule (Probiotic) ferrous sulfate 325 mg (65 mg 650 mg PO QAM 05/17/23 04/20/24 History iron) tablet (iron) amgsyzjudjoz-lst-roown acid-vit 1 tab PO DAILY 05/17/23 04/20/24 History K-lycop 400 mcg-20 mcg-370 mcg tablet (Men's 50 Plus Multivitamin) duloxetine 30 mg capsule,delayed 30 mg PO QAM 02/02/24 04/20/24 History release pantoprazole 40 mg tablet,delayed 40 mg PO AMPM 02/02/24 04/20/24 History release rifaximin 550 mg tablet (Xifaxan) 550 mg PO AMHS 02/02/24 04/20/24 History metoclopramide HCl 5 mg tablet 5 mg PO TID PRN Nausea And Vomiting 02/20/24 04/20/24 History acetaminophen 500 mg tablet 1,000 mg PO BID PRN Pain 03/19/24 04/20/24 History acetylcysteine (bulk) 600 ea miscellaneous DAILY 03/20/24 04/20/24 History finasteride 5 mg tablet 5 mg PO QAM 03/20/24 04/20/24 History insulin glargine 100 unit/mL 26 unit subcut QPM 03/20/24 04/20/24 History subcutaneous solution (Lantus U-100 Insulin) lactulose 10 gram oral packet 10 g PO BID PRN . 03/20/24 04/20/24 History (Kristalose) mirtazapine 30 mg tablet 30 mg PO HS PRN Sleep 03/20/24 04/20/24 History potassium chloride 20 mEq 20 meq PO DAILY 03/20/24 04/20/24 History tablet,extended release(part/cryst) zinc gluconate 50 mg tablet 50 mg PO DAILY 03/20/24 04/20/24 History cholestyramine (with sugar) 4 gram 1 ea PO BID PRN Diarrhea 04/20/24 04/20/24 History powder for susp in a packet magnesium chloride 64 mg 64 mg PO DAILY 04/20/24 04/20/24 History (magnesium chloride) tablet,delayed release (Mag 64) solifenacin 5 mg tablet 5 mg PO QAM 04/20/24 04/20/24 History Past Med/Surg History Problem List (Updated 05/03/24 @ 03:51 by Ximena Lynn MD) Hypocalcemia (Acute) Hyperglycemia (Acute) Elevated brain natriuretic peptide (BNP) level (Acute) Acute kidney injury superimposed on chronic kidney disease (Acute) Thrombocytopenia (Acute) Anemia requiring transfusions (Acute) Pancytopenia (Acute) Chest pain (Acute) LUCRETIA (acute kidney injury) Hematuria (Acute) Anemia (Acute) Acute urinary retention (Acute) DM type 2 (diabetes mellitus, type 2) Irradiation cystitis with hematuria UTI (urinary tract infection) (Acute) Anemia (Acute) 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 (Acute) Closed T12 spinal fracture (Acute) Prostate cancer (Acute) Hx radiation CKD (chronic kidney disease) stage 3, GFR 30-59 ml/min (Acute) Insulin dependent type 2 diabetes mellitus Medical History (Updated 05/03/24 @ 03:51 by Ximena Lynn MD) Thrombocytopenia DM type 2 (diabetes mellitus, type 2) Hx of malignant neoplasm of prostate History of blood transfusion 11/2022 Hepatocellular carcinoma Spinal fracture of T12 vertebra History of recent hospitalization 06/2023 [facility] hepatic encephalopathy Liver spots Under surveillance, stable per patient Anxiety and depression 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 Anemia of chronic disease under surveillance History of panic attacks Gout No current issues GERD (gastroesophageal reflux disease) GAVE (gastric antral vascular ectasia) Hypertension Hx Esophageal varices EGD 05/22/23 ([facility]): Grade 1 varices in distal esophagus without high risk stigmata Upper GI bleed Hx Psoriasis Surgical History History of left cataract surgery History of right cataract surgery History of prostate biopsy malignant S/P TIPS (transjugular intrahepatic portosystemic shunt) History of esophagogastroduodenoscopy (EGD) Most recent 05/2023 [facility] History of colonoscopy with polypectomy History of tonsillectomy and adenoidectomy History of abdominal paracentesis Multiple, most recent 01/2023 Family History Father , "3/4 liver gone due to drinking" Colorectal cancer, Onset Age: 63 Mother Lung cancer Daughter Cancer cervical and thyroid cancers Ovarian cancer Other No family history of adverse response to anesthesia 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 Smoking Status: Never smoker Second Hand Exposure: No; Do You Dip or Chew Tobacco: No; Hx Alcohol Use: No Hx Substance Use: No Preferred Language: Russian Communication Ability: Effective Visual Impairment: No Limitations Hearing Ability: Normal Bureau Chief Required: No Beliefs That Will Affect Care: None marital status: Current Living Situation: Spouse Current Living Situation Comment: 1 level single family home 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 How many Children do You have: 6 How many Children do You have Comment: one , eldest daughter in her sleep from seizure disorder Feels Safe at Home: Yes Childhood Exposure to Second-Hand Smoke: Yes Diet Comment: "I watch my sugar, average fasting is 140 mg/dl" caffeine: Yes (cola, sugar free, decaf) during the past year weight has: remained stable Dental Care, Regularly: No Physical Activity Frequency: Does not Exercise Seatbelt Use: always Sunscreen Use: Yes Assistive Devices: Walker Review of Systems Review of Systems: Could not be reliably obtained secondary to lethargic state Physical Exam Physical Exam: GENERAL: Lethargic, uncomfortable, no respiratory distress SKIN: Pallor, warm HEENT: Alopecia, pale palpebral conjunctivae, no ptosis, dry buccal mucosa NECK : Supple, no tenderness CHEST : Decreased breath sounds, no tenderness HEART : RRR, no obvious murmurs ABDOMEN: Some distention, nontender EXTREMITIES : Minimal LE swelling, no overt right foot tenderness NEUROLOGIC : Lethargic, no facial asymmetry, gait and stance not assessed Results & Data Results & Data Vital Signs (Past 12 Hours) Vital Signs Temp Pulse Pulse Resp BP BP Pulse Ox 05/03/24 03:00 80 16 150/72 H 97 05/03/24 02:40 69 05/03/24 02:26 99 05/03/24 02:26 36.7 C 73 16 132/55 L 99 05/03/24 02:25 72 16 99 O2 Del Method 05/03/24 03:00 Room Air 05/03/24 02:40 05/03/24 02:26 Room Air 05/03/24 02:26 Room Air 05/03/24 02:25 Room Air Laboratory Results Laboratory Results WBC 3.32 K/ul (4.8-10.8) L 05/03/24 02:38 RBC 1.84 M/uL (4.70-6.10) L 05/03/24 02:38 Hgb 6.1 g/dl (14.0-18.0) L* 05/03/24 02:38 Hct 19.0 % (42.0-52.0) L* 05/03/24 02:38 MCV 103.3 fL (80.0-100.0) H 05/03/24 02:38 MCH 33.2 pg (25.0-34.0) 05/03/24 02:38 MCHC 32.1 g/dL (32.0-36.0) 05/03/24 02:38 RDW Std Deviation 79.6 fL (36.4-46.3) H 05/03/24 02:38 RDW Coeff of Violetta 22.1 % (11.5-14.5) H 05/03/24 02:38 Plt Count 87 K/uL (130-400) L 05/03/24 02:38 MPV 11.9 fL (9.4-12.4) 05/03/24 02:38 Immature Gran % (Auto) 0.9 % 05/03/24 02:38 Neut % (Auto) 67.5 % 05/03/24 02:38 Lymph % (Auto) 18.4 % 05/03/24 02:38 [place] % (Auto) 6.9 % 05/03/24 02:38 Eos % (Auto) 5.4 % 05/03/24 02:38 Baso % (Auto) 0.9 % 05/03/24 02:38 Neut # (Auto) 2.24 K/uL (1.40-6.50) 05/03/24 02:38 Lymph # (Auto) 0.61 K/uL (1.20-3.40) L 05/03/24 02:38 [place] # (Auto) 0.23 K/uL (0.11-0.59) 05/03/24 02:38 Eos # (Auto) 0.18 K/uL (0.00-0.50) 05/03/24 02:38 Baso # (Auto) 0.03 K/uL (0.00-0.20) 05/03/24 02:38 Immature Gran # (Auto) 0.03 K/uL (0.01-0.20) 05/03/24 02:38 Polychromasia 1+ 05/03/24 02:38 Anisocytosis Present 05/03/24 02:38 Tear Drop Cells 1+ 05/03/24 02:38 PT 12.2 Seconds (9.0-12.0) H 05/03/24 02:38 INR 1.1 (0.9-1.1) 05/03/24 02:38 Sodium 138 mmol/L (136-145) 05/03/24 02:38 Potassium 4.3 mmol/L (3.5-5.1) 05/03/24 02:38 Chloride 111 mmol/L (98-107) H 05/03/24 02:38 Carbon Dioxide 22 mmol/L (21-32) 05/03/24 02:38 Anion Gap 5 (3-11) 05/03/24 02:38 BUN 42 mg/dl (6-23) H 05/03/24 02:38 Creatinine 1.61 mg/dl (0.6-1.4) H 05/03/24 02:38 Est Cr Clr Drug Dosing 45.8 ml/min 05/03/24 02:38 Est GFR ( Amer) 48.4 ml/min 05/03/24 02:38 Est GFR (Non-Af Amer) 41.8 ml/min 05/03/24 02:38 BUN/Creatinine Ratio 26.1 (10-20) H 05/03/24 02:38 Glucose 268 mg/dl (70-99(Fasting)) H 05/03/24 02:38 Calcium 7.6 mg/dl (8.6-10.3) L 05/03/24 02:38 Magnesium 2.1 mg/dl (1.7-2.4) 05/03/24 02:38 Total Bilirubin 1.5 mg/dl (0.2-1.0) H 05/03/24 02:38 AST 48 U/L (13-39) H 05/03/24 02:38 ALT 25 U/L (7-52) 05/03/24 02:38 Alkaline Phosphatase 169 U/L (34-104) H 05/03/24 02:38 Ammonia 40.0 umol/L (18-72) 05/03/24 02:38 Troponin I High Sens 19.9 pg/ml (0-20) 05/03/24 02:38 B-Natriuretic Peptide 184 pg/ml (0-100) H 05/03/24 02:38 Total Protein 5.3 gm/dl (6.0-8.3) L 05/03/24 02:38 Albumin 2.6 gm/dl (3.4-5.0) L 05/03/24 02:38 Globulin 2.7 gm/dl (2.5-4.0) 05/03/24 02:38 Albumin/Globulin Ratio 1.0 (0.9-2) 05/03/24 02:38 Lipase 180 U/L (11-82) H 05/03/24 02:38 Urine Color Red 05/03/24 03:03 Urine Appearance Cloudy (Clear) A 05/03/24 03:03 Urine pH 7.0 (4.5-7.5) 05/03/24 03:03 Ur Specific Felton >= 1.030 (1.000-1.030) 05/03/24 03:03 Urine Protein 3+ (Negative) H 05/03/24 03:03 Urine Glucose (UA) Trace (Negative) H 05/03/24 03:03 Urine Ketones Negative (Negative) 05/03/24 03:03 Urine Blood 3+ (Negative) H 05/03/24 03:03 Urine Nitrite Negative (Negative) 05/03/24 03:03 Urine Bilirubin Negative (Negative) 05/03/24 03:03 Urine Urobilinogen Negative (Negative) 05/03/24 03:03 Ur Leukocyte Esterase Negative (Negative) 05/03/24 03:03 Urine RBC >20 /hpf (0-2) H 05/03/24 03:03 Urine WBC 6-10 /hpf (0-5) H 05/03/24 03:03 Ur Epithelial Cells 0-2 /hpf (0-2) 05/03/24 03:03 Urine Bacteria None Seen (None Seen) 05/03/24 03:03 Blood Type O Positive 05/03/24 02:39 Antibody Screen NEGATIVE 05/03/24 02:39 Crossmatch See Detail 05/03/24 02:39 Diagnostic Findings Chest x-ray as per my interpretation: Atelectasis, cardiomegaly EKG as per my interpretation : Rate 70, NSR, LAD, LAFB, septal infarct, ST depression anterolateral leads
[2024-05-03] MEDS ORDERED: OLANZapine 10 MG/2.1 ML SDV IM PRN (04:38)
[2024-05-03] MEDS: ACETAMINOPHEN 1,000 MG/100 ML VIAL IV STA (04:48)
[2024-05-03] MEDS: OLANZapine 10 MG/2.1 ML SDV IM STA (05:34)
[2024-05-03] MEDS ORDERED: GLUCAGON FOR INJ 1 MG VIAL SQ PRN ×2 (05:56→15:14)
[2024-05-03] MEDS ORDERED: GLUCOSE 40% GEL 15 GM TUBE PO PRN ×2 (05:56→15:14)
[2024-05-03] MEDS ORDERED: DEXTROSE 50% 50 ML SYRINGE IV PRN ×2 (05:56→15:14)
[2024-05-03] MEDS ORDERED: GLUCOSE 10 TAB/TUBE PO PRN ×2 (05:56→15:14)
[2024-05-03] MEDS ORDERED: CARBOHYDRATES FOR HYPOGLYCEMIA PO PRN ×2 (05:56→15:14)
[2024-05-03 06:56] LABS: Uric Acid 9.8 mg/dl (2.6-7.2)
[2024-05-03] MEDS: INSULIN ASPART PER UNIT CHARGE SC SCH (07:22)
--- NOTE | 2024-05-03 08:13 | XRay Report ---
XR chest 1V portable CLINICAL HISTORY: Chest pain, nonspecific TECHNIQUE: Single frontal radiograph of the chest was obtained. Comparison: Comparison is made to chest radiograph 04/21/2024 FINDINGS: No lines and tubes are seen. The cardiomediastinal silhouette is stable. The lungs are clear. No evid ence of pleural effusion or pneumothorax. IMPRESSION: No acute chest disease. Previously noted right lower lung opacity has resolved. ACT 112: Negative or not required by law. Electronically signed by: Arik Flowers M.D. 05/03/2024 8:12 AM
--- NOTE | 2024-05-03 08:29 | Urology Consultation ---
Date of Consultation May 03, 2024 Assessment & Plan (1) Anemia: (2) Irradiation cystitis with hematuria: Plan 73-year-old male with a history of prostate cancer status post radiation which has been complicated by numerous hospitalizations due to radiation cystitis and hematuria. He follows with Dr. Frank Peraza with [facility] urology. Patient was recently admitted on 04/20/2024 for the same issue and was discharged on the . He returns today with symptomatic anemia. Procedure: Patient was prepped and draped in a sterile fashion. A 24 Mauritanian three-way catheter was placed with return of thin red urine. Irrigation port was capped. Recommendations: Maintain Kan catheter. Nursing can hand irrigate as needed Goal will be to get patient discharged prior to his appointment in [place] to have his liver lesion treated so he can ultimately get to hyperbaric oxygen chamber treatment as that is his only option and has had numerous recent admissions for hematuria Transfuse as necessary per primary team Patient will ultimately need to follow-up with primary urologist Dr. Peraza [facility] to follow peripherally History of Present Illness Attending Physician: Garrett Walton MD History of Present Illness 73-year-old male with a history of prostate cancer status post radiation which has been complicated by numerous hospitalizations due to radiation cystitis and hematuria. He follows with Dr. Frank Peraza with [facility] urology. Patient was recently admitted on 04/20/2024 for the same issue and was discharged on the . He returns today with symptomatic anemia. Review of his labs shows a hemoglobin of 6.1, creatinine of 1.61, up from his baseline of 1.2, and a urinalysis which showed greater than 20 RBCs and 6-10 WBCs with no bacteria. Patient has been evaluated for hyperbaric oxygen treatment however he needs a liver lesion treated prior to undergoing this. Patient was quite uncomfortable and I saw him and was unable to void. I offered a Kan catheter and he excepted. Patient is scheduled for treatment of his liver lesion in [place] on 05/06/2024 and orders and get set up with hyperbaric oxygen treatment, which is the only option left for him from a hematuria standpoint at this time unless he were to have his bladder removed. Procedure: Patient was prepped and draped in a sterile fashion. A 24 Mauritanian three-way catheter was placed with return of thin red urine. Irrigation port was capped. Recommendations: Maintain Kan catheter. Nursing can hand irrigate as needed Goal will be to get patient discharged prior to his appointment in [place] to have his liver lesion treated so he can ultimately get to hyperbaric oxygen chamber treatment as that is his only option and has had numerous recent admissions for hematuria Transfuse as necessary per primary team Patient will ultimately need to follow-up with primary urologist Dr. Peraza [facility] to follow peripherally Allergies Allergy/AdvReac Type Severity Reaction Status Date / Time No Known Allergies Allergy Mild Verified 05/03/24 09:17 Home Medications Medication Instructions Recorded Confirmed Type allopurinol 100 mg tablet 100 mg PO QAM 05/16/20 05/03/24 History furosemide 20 mg tablet (Lasix) 40 mg PO QAM 11/02/22 05/03/24 History Lactobacil.acidophilus-Bifido.animalis 1 cap PO QAM 05/17/23 05/03/24 History 5 billion cell sprinkle capsule (Probiotic) ferrous sulfate 325 mg (65 mg 650 mg PO QAM 05/17/23 05/03/24 History iron) tablet (iron) gvucaauiweeo-oop-rccjh acid-vit 1 tab PO DAILY 05/17/23 05/03/24 History K-lycop 400 mcg-20 mcg-370 mcg tablet (Men's 50 Plus Multivitamin) duloxetine 30 mg capsule,delayed 30 mg PO QAM 02/02/24 05/03/24 History release pantoprazole 40 mg tablet,delayed 40 mg PO AMPM 02/02/24 05/03/24 History release rifaximin 550 mg tablet (Xifaxan) 550 mg PO AMHS 02/02/24 05/03/24 History metoclopramide HCl 5 mg tablet 5 mg PO TID PRN Nausea And Vomiting 02/20/24 05/03/24 History acetaminophen 500 mg tablet 1,000 mg PO BID PRN Pain 03/19/24 05/03/24 History finasteride 5 mg tablet 5 mg PO QAM 03/20/24 05/03/24 History insulin glargine 100 unit/mL 26 unit subcut QPM 03/20/24 05/03/24 History subcutaneous solution (Lantus U-100 Insulin) lactulose 10 gram oral packet 10 g PO BID PRN . 03/20/24 05/03/24 History (Kristalose) mirtazapine 30 mg tablet 30 mg PO HS PRN Sleep 03/20/24 05/03/24 History potassium chloride 20 mEq 20 meq PO DAILY 03/20/24 05/03/24 History tablet,extended release(part/cryst) zinc gluconate 50 mg tablet 50 mg PO DAILY 03/20/24 05/03/24 History solifenacin 5 mg tablet 5 mg PO QAM 04/20/24 05/03/24 History acetylcysteine 600 mg capsule 600 mg PO DAILY 05/03/24 05/03/24 History Patient History Medical History (Updated 05/03/24 @ 03:51 by Ximena Lynn MD) Thrombocytopenia DM type 2 (diabetes mellitus, type 2) Hx of malignant neoplasm of prostate History of blood transfusion 11/2022 Hepatocellular carcinoma Spinal fracture of T12 vertebra History of recent hospitalization 06/2023 [facility] hepatic encephalopathy Liver spots Under surveillance, stable per patient Anxiety and depression 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 Anemia of chronic disease under surveillance History of panic attacks Gout No current issues GERD (gastroesophageal reflux disease) GAVE (gastric antral vascular ectasia) Hypertension Hx Esophageal varices EGD 05/22/23 ([facility]): Grade 1 varices in distal esophagus without high risk stigmata Upper GI bleed Hx Psoriasis Surgical History History of left cataract surgery History of right cataract surgery History of prostate biopsy malignant S/P TIPS (transjugular intrahepatic portosystemic shunt) History of esophagogastroduodenoscopy (EGD) Most recent 05/2023 [facility] History of colonoscopy with polypectomy History of tonsillectomy and adenoidectomy History of abdominal paracentesis Multiple, most recent 01/2023 Family History Father , "3/4 liver gone due to drinking" Colorectal cancer, Onset Age: 63 Mother Lung cancer Daughter Cancer cervical and thyroid cancers Ovarian cancer Other No family history of adverse response to anesthesia 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 Smoking Status: Never smoker Second Hand Exposure: No; Do You Dip or Chew Tobacco: No; Hx Alcohol Use: No Hx Substance Use: No Preferred Language: Upper Sorbian Communication Ability: Effective Visual Impairment: No Limitations Hearing Ability: Normal Thresher [place]room[place] Required: No Beliefs That Will Affect Care: None marital status: Current Living Situation: Spouse Current Living Situation Comment: 1 level single family home 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 How many Children do You have: 6 How many Children do You have Comment: one , eldest daughter in her sleep from seizure disorder Feels Safe at Home: Yes Childhood Exposure to Second-Hand Smoke: Yes Diet Comment: "I watch my sugar, average fasting is 140 mg/dl" caffeine: Yes (cola, sugar free, decaf) during the past year weight has: remained stable Dental Care, Regularly: No Physical Activity Frequency: Does not Exercise Seatbelt Use: always Sunscreen Use: Yes Assistive Devices: Walker Physical Exam Physical Exam: General: Alert and oriented, no acute distress HEENT: Normocephalic, mucous membranes moist Pulmonary: Nonlabored respirations Abdomen: Nondistended : [] Extremities: Moves all 4 spontaneously Neuro: No gross deficits Skin: Warm, dry, no rashes noted Results & Data Vital Signs (Past 12 Hours) Vital Signs Temp Pulse Pulse Resp BP BP Pulse Ox 05/03/24 07:19 64 05/03/24 07:00 05/03/24 06:55 36.5 C 62 16 129/67 100 05/03/24 06:40 36.5 C 70 20 160/77 H 100 05/03/24 06:29 36.6 C 63 16 152/62 H 96 05/03/24 06:26 36.6 C 63 16 152/62 H 96 05/03/24 05:40 36.6 C 63 14 129/56 L 96 05/03/24 05:10 36.4 C L 67 16 137/63 99 05/03/24 04:55 36.5 C 71 16 126/50 L 100 05/03/24 04:40 36.5 C 71 14 115/49 L 99 05/03/24 04:00 75 14 130/59 L 96 05/03/24 03:00 80 16 150/72 H 97 05/03/24 02:40 69 05/03/24 02:26 99 05/03/24 02:26 36.7 C 73 16 132/55 L 99 05/03/24 02:25 72 16 99 Pulse Ox O2 Del Method 05/03/24 07:19 05/03/24 07:00 100 05/03/24 06:55 05/03/24 06:40 05/03/24 06:29 05/03/24 06:26 05/03/24 05:40 05/03/24 05:10 05/03/24 04:55 05/03/24 04:40 05/03/24 04:00 Room Air 05/03/24 03:00 Room Air 05/03/24 02:40 05/03/24 02:26 Room Air 05/03/24 02:26 Room Air 05/03/24 02:25 Room Air PG Care Time/CCT Total # of Minutes Spent Total Time Spent with Patient: Total time spent is greater than 50% in coordination of care (as documented) at patient's floor/unit and/or counseling patient: Coding Level of Care Code 46169 INT INP/OBS CARE 2/55MIN Diagnoses Anemia D64.9 Anemia type: unspecified type Irradiation cystitis with hematuria N30.41 (1) Anemia Anemia type: unspecified type Qualified Code(s): D64.9 - Anemia, unspecified
--- NOTE | 2024-05-03 08:29 | XRay Report ---
XR foot RT 2V CLINICAL HISTORY: pain TECHNIQUE: 2 views of the right foot were obtained. Comparison: None available at the time of this dictation. FINDINGS: No fractures are present. Bones are osteopenic and there are minimal degenerative changes. No soft ti ssue abnormality is seen. IMPRESSION: No evidence of acute bony injury. ACT 112: Negative or not required by law. Electronically signed by: Arik Flowers M.D. 05/03/2024 8:28 AM
[2024-05-03] MEDS: ACETAMINOPHEN 500 MG TAB PO PRN (10:58)
--- NOTE | 2024-05-03 14:35 | Hospitalist Progress Note ---
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 Found to have hemoglobin of 6.1 and LUCRETIA with creatinine 1.61 Irradiation cystitis with hematuria with acute on chronic blood loss anemia - hemoglobin 6.1. Status post 2U PRBC overnight. Recheck H&H pending. Will transfuse as indicated - reported hematuria with clots that keep blocking the mendoza despite manual irrigation. Spoke with urology and they are okay with CBI. Urology did not recommend tranexamic acid. Per urology, goal will be to get patient discharged prior to his appointment and will to have his liver lesion treated so he can ultimately get to hyperbaric oxygen chamber treatment as that is his only option and has had numerous recent admissions for hematuria. - UA on admission does not look infected. LUCRETIA- baseline creatinine 1.1. creatinine elevated to 1.6 On admission. ? hematuria with obstruction versus relative hypovolemia. on gentle IVF. Recheck in AM. Avoid nephrotoxics Diabetes mellitus type 2- On Lantus and Humalog. will adjust insulin as indicated. Pancytopenia secondary cirrhosis of liver, FOFANA cirrhosis status post TIPS and Revision, history of esophageal varices and ascites requiring paracentesis- monitor. continue Xifaxan and lactulose. Hold Lasix for now, will resume as indicated. HCC- scheduled for IR embolization on 05/06 [place] [facility] [place] hyperuricemia, history of gout- continue allopurinol. X-ray foot with no evidence of acute bony injury. DVT prophylaxis- SCD, chemoprophylaxis contraindicated due to hematuria and anemia Disposition-pending medical stability time spent approximately 35 minutes Admission and Anticipated Discharge Date Admission Date: May 03, 2024 Subjective Patient was seen examined at bedside. He feels frustrated regarding ongoing hematuria and need for frequent transfusions. He states that he was seen by urology this morning and recommended hyperbaric oxygen treatment but this cannot be started until he gets his liver procedure in [place], which is scheduled for 05/06/2024. he denies any fever, chills, suprapubic pain, nausea, vomiting. Review of Systems Review of Systems: All systems reviewed & are unremarkable except as noted in Subjective Physical Exam Physical Exam: General: elderly male, Lying comfortably in bed, not in distress, on room air HEENT: EOMI, JUAN ANTONIO, MMM Chest: Clear breath sounds bilaterally, no wheezes or crackles CVS: Regular rate and rhythm, normal heart sounds, no murmur Abdomen: Soft, non tender, not distended, normal bowel sounds Neuro: Awake, alert, oriented, conversing well, non focal Extremities: trace edema Genitourinary: Mendoza with hematuria Results & Data Results & Data Vital Signs (Past 12 Hours) Vital Signs Temp Pulse Pulse Resp BP BP Pulse Ox 05/03/24 13:07 59 L 14 154/69 H 100 05/03/24 11:28 60 16 118/61 99 05/03/24 09:10 36.6 C 62 16 154/61 H 100 05/03/24 08:25 36.5 C 62 18 140/70 98 05/03/24 07:25 36.5 C 69 177/79 H 99 05/03/24 07:19 64 05/03/24 07:00 05/03/24 06:55 36.5 C 62 16 129/67 100 05/03/24 06:40 36.5 C 70 20 160/77 H 100 05/03/24 06:29 36.6 C 63 16 152/62 H 96 05/03/24 06:26 36.6 C 63 16 152/62 H 96 05/03/24 05:40 36.6 C 63 14 129/56 L 96 05/03/24 05:10 36.4 C L 67 16 137/63 99 05/03/24 04:55 36.5 C 71 16 126/50 L 100 05/03/24 04:40 36.5 C 71 14 115/49 L 99 05/03/24 04:00 75 14 130/59 L 96 05/03/24 03:00 80 16 150/72 H 97 05/03/24 02:40 69 05/03/24 02:26 99 05/03/24 02:26 36.7 C 73 16 132/55 L 99 05/03/24 02:25 72 16 99 Pulse Ox O2 Del Method 05/03/24 13:07 Room Air 05/03/24 11:28 Room Air 05/03/24 09:10 05/03/24 08:25 05/03/24 07:25 05/03/24 07:19 05/03/24 07:00 100 05/03/24 06:55 05/03/24 06:40 05/03/24 06:29 05/03/24 06:26 05/03/24 05:40 05/03/24 05:10 05/03/24 04:55 05/03/24 04:40 05/03/24 04:00 Room Air 05/03/24 03:00 Room Air 05/03/24 02:40 05/03/24 02:26 Room Air 05/03/24 02:26 Room Air 05/03/24 02:25 Room Air Laboratory Results Short CBC 05/03/24 Range/Units 02:38 WBC 3.32 L (4.8-10.8) K/ul Hgb 6.1 L* (14.0-18.0) g/dl Hct 19.0 L* (42.0-52.0) % Plt Count 87 L (130-400) K/uL BMP 05/03/24 02:38 Sodium 138 Potassium 4.3 Chloride 111 H Carbon Dioxide 22 BUN 42 H Creatinine 1.61 H Glucose 268 H Calcium 7.6 L Cardiac Enzymes 05/03/24 Range/Units 02:38 Total Creatine Kinase 33 (30-223) U/L Liver Function 05/03/24 Range/Units 02:38 Total Bilirubin 1.5 H (0.2-1.0) mg/dl AST 48 H (13-39) U/L ALT 25 (7-52) U/L Alkaline Phosphatase 169 H (34-104) U/L Albumin 2.6 L (3.4-5.0) gm/dl Urine 05/03/24 Range/Units 03:03 Urine Color Red Urine Appearance Cloudy A (Clear) Urine pH 7.0 (4.5-7.5) Ur Specific [place] >= 1.030 (1.000-1.030) Urine Protein 3+ H (Negative) Urine Glucose (UA) Trace H (Negative)
[2024-05-03] MEDS ORDERED: LACTULOSE SYRUP 20 GM/30 ML UDC PO PRN (15:17)
[2024-05-03] MEDS: oxyCODONE HCL IR 5 MG TAB (IMMEDIATE RELEASE) PO PRN (15:18)
[2024-05-03] MEDS: LIDOCAINE 2% JELLY 5 ML TUBE EXT ONE (15:45)
[2024-05-03 18:50] LABS: Hemoglobin 8.4 g/dl (14.0-18.0)
[2024-05-03] MEDS: LANTUS PER UNIT CHARGE SQ SCH (21:21)
[2024-05-03] MEDS: rifAXIMin 550 MG TABLET PO SCH (21:22)
[2024-05-03] MEDS: PANTOprazole 40 MG TAB PO SCH (21:22)
[2024-05-04 04:48] LABS: Basophils # (auto) 0.02 K/uL (0.00-0.20); Basophils % (auto) 0.4 %; Eosinophils % (auto) 5.8 %; Hematocrit (blood only) 22.2 % (42.0-52.0); Hemoglobin 7.2 g/dl (14.0-18.0); Immature Granulocytes # (auto) 0.03 K/uL (0.01-0.20); Immature Granulocytes % (auto) 0.6 %; Lymphocytes % (auto) 13.5 %; Mean Corpuscular Hemoglobin 31.2 pg (25.0-34.0); Mean Corpuscular Hgb Conc 32.4 g/dL (32.0-36.0); Mean Corpuscular Volume 96.1 fL (80.0-100.0); Mean Platelet Volume 11.9 fL (9.4-12.4); Monocytes # (auto) 0.29 K/uL (0.11-0.59); Monocytes % (auto) 5.6 %; Neutrophils # (auto) 3.84 K/uL (1.40-6.50); Neutrophils % (auto) 74.1 %; Platelet Count 87 K/uL (130-400); RDW Coefficient of Variation 22.2 % (11.5-14.5); RDW Standard Deviation 73.6 fL (36.4-46.3); Red Blood Count 2.31 M/uL (4.70-6.10); White Blood Count 5.18 K/ul (4.8-10.8)
[2024-05-04 05:00] LABS: Calcium 7.4 mg/dl (8.6-10.3); Creatinine Clr Calc Pharmacy 42.1 ml/min; Est GFR (African American) 43.8 ml/min; Est GFR (Non-African American) 37.8 ml/min; Potassium 4.9 mmol/L (3.5-5.1)
[2024-05-04 05:49] LABS: Anisocytosis Present; Polychromasia 1+; Tear Drop Cells 1+
--- NOTE | 2024-05-04 06:07 | Electrocardiogram Report ---
Test Reason : Blood Pressure : / mmHG Vent. Rate : 071 BPM Atrial Rate : 071 BPM P-R Int : 186 ms QRS Dur : 088 ms QT Int : 460 ms P-R-T Axes : 037 -02 083 degrees QTc Int : 499 ms Normal sinus rhythm Nonspecific ST and T wave abnormality Prolonged QT Abnormal ECG When compared with ECG of 19-MAR-2024 16:16, Nonspecific T wave abnormality, worse in Lateral leads Confirmed by Benjamin Giles ([id number]) on 05/04/2024 6:06:52 AM Referred By: NO PCP Confirmed By:Benjamin Giles
[2024-05-04] MEDS: DULoxetine HCL 30 MG CAP PO SCH (07:44)
[2024-05-04] MEDS: allopurinoL 100 MG TAB PO SCH (07:44)
[2024-05-04] MEDS: OXYBUTYNIN CHLORIDE XL 5 MG TABCR PO SCH (07:45)
[2024-05-04] MEDS: FINASTERIDE 5 MG TAB PO SCH (07:45)
[2024-05-04] MEDS: FERROUS SULFATE 325 MG TAB PO SCH (07:45)
[2024-05-04] MEDS ORDERED: NON-FORMULARY MEDICATION (Zinc Gluconate 50 mg tablet) PO SCH (09:00)
[2024-05-04 11:30] LABS: Hematocrit (blood only) 21.4 % (42.0-52.0)
--- NOTE | 2024-05-04 14:07 | Urology Progress Note ---
Date of Service May 04, 2024 Assessment & Plan (1) Acute urinary retention: (2) Hematuria: Plan: Follow-up of urinary retention/gross hematuria Ongoing hematuria most likely related to radiation cystitis Patient is afebrile with stable vitals Labs reviewedcreatinine 1.75, WBC 5.18, hemoglobin 7.0 (has received 2 units of PRBCs since arrival) Kan is patent and draining appropriately, urine is light collins red with CBI on slow Maintain Kan catheter for now Recommend titrate down CBI as appropriate Okay to gently hand irrigate catheter as needed for obstruction Goal will be to get patient discharged prior to his appointment in [place] to have his liver lesion treated so he can ultimately get to hyperbaric oxygen chamber treatment Continue to trend labs, transfuse as necessary per primary team Patient will ultimately need to follow-up with primary urologist Dr. Peraza Urology will follow Admission and Anticipated Discharge Date Admission Date: May 03, 2024 Subjective Patient seen and examined in the emergency department He is awake and resting in bed Kan is patent and draining light collins urine with CBI on slow Has required manual irrigation intermittently Denies suprapubic pain at this time Denies fever or chills Review of Systems Constitutional: as per Subjective / HPI Genitourinary: + as per Subjective / HPI Physical Exam Constitutional: no acute distress Respiratory: normal respiratory effort; no respiratory distress and no labored breathing Musculoskeletal: Head/Neck/Chest: normocephalic Neurologic: moves all extremities and awake Psychiatric: Orientation: alert and oriented x 3 Genitourinary: Kan is patent and draining clear collins red urine with CBI on slow Results & Data Vital Signs (Past 12 Hours) Vital Signs Temp Pulse Pulse Resp BP Pulse Ox Pulse Ox 05/04/24 11:09 37.0 C 84 18 137/62 100 05/04/24 07:48 100 05/04/24 07:40 68 05/04/24 07:12 37.0 C 70 16 139/70 100 05/04/24 06:00 73 18 133/73 98 05/04/24 05:00 74 20 100 05/04/24 04:00 72 16 128/64 99 05/04/24 03:07 05/04/24 03:00 71 16 138/60 98 05/04/24 02:56 74 O2 Del Method O2 Del Method O2 Flow Rate O2 Flow Rate 06/03/24 11:09 Nasal Cannula 2 05/04/24 07:48 Nasal Cannula 2 05/04/24 07:40 05/04/24 07:12 Nasal Cannula 2 05/04/24 06:00 Nasal Cannula 2 05/04/24 05:00 Nasal Cannula 2 05/04/24 04:00 Nasal Cannula 2 05/04/24 03:07 Nasal Cannula 2 05/04/24 03:00 Nasal Cannula 2 05/04/24 02:56 PG Care Time/CCT Total # of Minutes Spent Total Time Spent with Patient: Total time spent is greater than 50% in coordination of care (as documented) at patient's floor/unit and/or counseling patient: Coding Level of Care Code 90705 SUB INP/OBS CARE 2/35MIN Diagnoses Acute urinary retention R33.8 Hematuria R31.0 Hematuria type: gross (2) Hematuria Hematuria type: gross Qualified Code(s): R31.0 - Gross hematuria
[2024-05-04] MEDS ORDERED: SODIUM CHLORIDE 0.9% 250 ML IV PRN (14:30)
--- NOTE | 2024-05-04 14:51 | Hospitalist Progress Note ---
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 Found to have hemoglobin of 6.1 and LUCRETIA with creatinine 1.61 Irradiation cystitis with hematuria with acute on chronic blood loss anemia - hemoglobin 6.1->8.4->7 s/p 2 U PRBC. Continues to have hemautria with clots. Will transfuse 1 more U today and recheck Hb in am. Will transfuse as indicated - Uro following- currently CBI on low- still with hematuria with clots. Per urology, goal will be to get patient discharged prior to his appointment and will to have his liver lesion treated so he can ultimately get to hyperbaric oxygen chamber treatment as that is his only option and has had numerous recent admissions for hematuria. - UA on admission does not look infected. LUCRETIA- baseline creatinine 1.1. creatinine elevated to 1.6->1.75 . Getting volume with PRBC. Recommend more fluid intake. Recheck in AM. Avoid nephrotoxics Diabetes mellitus type 2- On Lantus and Humalog. will adjust insulin as indicated. Pancytopenia secondary cirrhosis of liver, FOFANA cirrhosis status post TIPS and Revision, history of esophageal varices and ascites requiring paracentesis- monitor. continue Xifaxan and lactulose. Hold Lasix for now, will resume as indicated. HCC- scheduled for IR embolization on 05/06 at [facility] [place] Hyperuricemia, history of gout- continue allopurinol. X-ray foot with no evidence of acute bony injury. DVT prophylaxis- SCD, chemoprophylaxis contraindicated due to hematuria and anemia Disposition-pending medical stability time spent approximately 35 minutes Admission and Anticipated Discharge Date Admission Date: May 03, 2024 Subjective Patient was seen and examined at bedside. Still having hematuria. Intermittently passing clots. He gets severe pain when passing the clots. CBI on slow. No fever, chills, CP, SOB, N/V. He is not sure if the hematuria is going to stop or if he will be able to go to [facility] [place] on 05/06. Physical Exam 2 Physical Exam: General: elderly male, Lying comfortably in bed, not in distress, on room air HEENT: EOMI, JUAN ANTONIO, MMM Chest: Clear breath sounds bilaterally, no wheezes or crackles CVS: Regular rate and rhythm, normal heart sounds, no murmur Abdomen: Soft, non tender, not distended, normal bowel sounds Neuro: Awake, alert, oriented, conversing well, non focal Extremities: trace edema Genitourinary: Kan with hematuria Results & Data Results & Data Vital Signs (Past 12 Hours) Vital Signs Temp Pulse Pulse Resp BP Pulse Ox Pulse Ox 05/04/24 11:09 37.0 C 84 18 137/62 100 05/04/24 07:48 100 05/04/24 07:40 68 05/04/24 07:12 37.0 C 70 16 139/70 100 05/04/24 06:00 73 18 133/73 98 05/04/24 05:00 74 20 100 05/04/24 04:00 72 16 128/64 99 05/04/24 03:07 05/04/24 03:00 71 16 138/60 98 05/04/24 02:56 74 O2 Del Method O2 Del Method O2 Flow Rate O2 Flow Rate 05/04/24 11:09 Nasal Cannula 2 05/04/24 07:48 Nasal Cannula 2 05/04/24 07:40 05/04/24 07:12 Nasal Cannula 2 05/04/24 06:00 Nasal Cannula 2 05/04/24 05:00 Nasal Cannula 2 05/04/24 04:00 Nasal Cannula 2 05/04/24 03:07 Nasal Cannula 2 05/04/24 03:00 Nasal Cannula 2 05/04/24 02:56
[2024-05-04] MEDS: LANTUS PER UNIT CHARGE SQ SCH (22:06)
[2024-05-05 00:24] LABS: Hematocrit (blood only) 22.3 % (42.0-52.0); Hemoglobin 7.5 g/dl (14.0-18.0)
[2024-05-05] MEDS: OXYBUTYNIN CHLORIDE XL 5 MG TABCR PO STA (00:38)
[2024-05-05] MEDS ORDERED: SODIUM CHLORIDE 0.9% 250 ML IV PRN (03:04)
[2024-05-05] MEDS: OXYBUTYNIN CHLORIDE XL 5 MG TABCR PO SCH (07:26)
[2024-05-05 10:17] LABS: Basophils # (auto) 0.02 K/uL (0.00-0.20); Basophils % (auto) 0.5 %; Eosinophils # (auto) 0.33 K/uL (0.00-0.50); Eosinophils % (auto) 7.7 %; Hematocrit (blood only) 27.8 % (42.0-52.0); Hemoglobin 9.1 g/dl (14.0-18.0); Immature Granulocytes # (auto) 0.02 K/uL (0.01-0.20); Immature Granulocytes % (auto) 0.5 %; Lymphocytes # (auto) 0.65 K/uL (1.20-3.40); Lymphocytes % (auto) 15.3 %; Mean Corpuscular Hemoglobin 31.4 pg (25.0-34.0); Mean Corpuscular Hgb Conc 32.7 g/dL (32.0-36.0); Mean Corpuscular Volume 95.9 fL (80.0-100.0); Mean Platelet Volume 10.3 fL (9.4-12.4); Monocytes # (auto) 0.27 K/uL (0.11-0.59); Monocytes % (auto) 6.3 %; Neutrophils # (auto) 2.97 K/uL (1.40-6.50); Neutrophils % (auto) 69.7 %; Platelet Count 67 K/uL (130-400); RDW Coefficient of Variation 19.6 % (11.5-14.5); RDW Standard Deviation 62.1 fL (36.4-46.3); White Blood Count 4.26 K/ul (4.8-10.8)
[2024-05-05 10:29] LABS: BUN Creatinine Ratio 19.3 (10-20); Calcium 7.4 mg/dl (8.6-10.3); Creatinine Clr Calc Pharmacy 34.5 ml/min; Est GFR (Non-African American) 32.7 ml/min; Potassium 4.7 mmol/L (3.5-5.1)
--- NOTE | 2024-05-05 11:30 | Urology Progress Note ---
Date of Service May 05, 2024 Assessment & Plan (1) Acute urinary retention: (2) Hematuria: Plan: Follow-up of urinary retention/gross hematuria Ongoing hematuria most likely related to radiation cystitis Patient is afebrile with stable vitals Labs reviewedcreatinine 1.97, WBC 4.26, hemoglobin 9.1 (has received 4 units of PRBCs since arrival) Kan is patent and draining appropriately, urine is light collins red with CBI on slow Recommend titrate down CBI as appropriate, clamped during exam Okay to gently hand irrigate catheter as needed for obstruction Maintain Kan catheter for now Goal will be to get patient discharged prior to his appointment in [place] to have his liver lesion treated so he can ultimately get to hyperbaric oxygen chamber treatment Continue to trend labs, transfuse as necessary per primary team Patient will ultimately need to follow-up with primary urologist Dr. Peraza Urology will follow Admission and Anticipated Discharge Date Admission Date: May 03, 2024 Subjective Patient seen and examined at bedside this morning He is awake and resting in bed Denies pain at present Kan draining light collins with CBI on slow He reports catheter has been manually irrigated a few times No fever or chills Review of Systems Constitutional: as per Subjective / HPI Genitourinary: + as per Subjective / HPI Physical Exam Constitutional: no acute distress Respiratory: normal respiratory effort; no respiratory distress and no labored breathing Musculoskeletal: Head/Neck/Chest: normocephalic Neurologic: moves all extremities and awake Psychiatric: Orientation: alert and oriented x 3 Genitourinary: Kan draining light collins with CBI on slow Results & Data Vital Signs (Past 12 Hours) Vital Signs Temp Pulse Pulse Resp BP BP Pulse Ox 05/05/24 08:22 59 L 05/05/24 07:24 36.3 C L 61 146/70 H 05/05/24 06:35 36.3 C L 60 18 132/65 98 05/05/24 05:35 36.3 C L 61 18 129/65 98 05/05/24 05:05 36.4 C L 65 18 149/64 H 100 05/05/24 04:50 36.3 C L 59 L 18 129/92 95 05/05/24 04:29 36.4 C L 62 18 133/69 97 05/05/24 03:05 36.4 C L 64 18 132/58 L 98 O2 Del Method 05/05/24 08:22 05/05/24 07:24 05/05/24 06:35 05/05/24 05:35 05/05/24 05:05 05/05/24 04:50 05/05/24 04:29 05/05/24 03:05 Room Air PG Care Time/CCT Total # of Minutes Spent Total Time Spent with Patient: Total time spent is greater than 50% in coordination of care (as documented) at patient's floor/unit and/or counseling patient: Coding Level of Care Code 24333 SUB INP/OBS CARE 12/26MIN Diagnoses Acute urinary retention R33.8 Hematuria R31.0 Hematuria type: gross (2) Hematuria Hematuria type: gross Qualified Code(s): R31.0 - Gross hematuria
--- NOTE | 2024-05-05 13:08 | Hospitalist Progress Note ---
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 Found to have hemoglobin of 6.1 and LUCRETIA with creatinine 1.61 Irradiation cystitis with hematuria with acute on chronic blood loss anemia - hemoglobin 6.1->8.4->7.2->7->7.5->9.1 s/p 2 U PRBC. Continues to have hematuria with clots. Recheck Hb in am and will transfuse as indicated - Uro following- currently CBI on low- still with hematuria with clots. Per urology, goal will be to get patient discharged prior to his appointment and will to have his liver lesion treated so he can ultimately get to hyperbaric oxygen chamber treatment as that is his only option and has had numerous recent admissions for hematuria. - UA on admission does not look infected. LUCRETIA- Continues to worsen. Baseline creatinine 1.1. creatinine elevated to 1.6->1.75->1.97. Might need renal ultrasound but he is already on mendoza for decompression. Consulted nephro. Avoid nephrotoxics. Recheck in am. Diabetes mellitus type 2- On Lantus and Humalog. Insulin adjusted again today. Pancytopenia secondary cirrhosis of liver, FOFANA cirrhosis status post TIPS and Revision, history of esophageal varices and ascites requiring paracentesis- monitor. continue Xifaxan and lactulose. Hold Lasix for now, will resume as indicated. HCC- scheduled for IR embolization on 05/06 [place] [facility] [place] which has been cancelled by family. Hyperuricemia, history of gout- continue allopurinol. X-ray foot with no evidence of acute bony injury. DVT prophylaxis- SCD, chemoprophylaxis contraindicated due to hematuria and anemia Disposition-pending medical stability Time spent approximately 35 minutes Admission and Anticipated Discharge Date Admission Date: May 03, 2024 Subjective Patient was seen and examined at bedside. He states he has had 4 transfusion so far. He continues to pass intermittent clots with pain. Continues to have hematuria. States his son called [facility] [place] and cancelled his appointment for tomorrow. Denies any CP, SOB, N/V. No fever or chills. Review of Systems Review of Systems: All systems reviewed & are unremarkable except as noted in Subjective Physical Exam Physical Exam: General: elderly male, Lying comfortably in bed, not in distress, on room air HEENT: EOMI, JUAN ANTONIO, MMM Chest: Clear breath sounds bilaterally, no wheezes or crackles CVS: Regular rate and rhythm, normal heart sounds, no murmur Abdomen: Soft, non tender, not distended, normal bowel sounds Neuro: Awake, alert, oriented, conversing well, non focal Extremities: trace edema Genitourinary: Mendoza with hematuria, CBI running Results & Data Results & Data Vital Signs (Past 12 Hours) Vital Signs Temp Pulse Pulse Resp BP BP Pulse Ox 05/05/24 12:08 36.7 C 67 18 123/59 L 98 05/05/24 08:22 59 L 05/05/24 07:24 36.3 C L 61 146/70 H 05/05/24 06:35 36.3 C L 60 18 132/65 98 05/05/24 05:35 36.3 C L 61 18 129/65 98 05/05/24 05:05 36.4 C L 65 18 149/64 H 100 05/05/24 04:50 36.3 C L 59 L 18 129/92 95 05/05/24 04:29 36.4 C L 62 18 133/69 97 05/05/24 03:05 36.4 C L 64 18 132/58 L 98 O2 Del Method 05/05/24 12:08 Room Air 05/05/24 08:22 05/05/24 07:24 05/05/24 06:35 05/05/24 05:35 05/05/24 05:05 05/05/24 04:50 05/05/24 04:29 05/05/24 03:05 Room Air Laboratory Results Short CBC 05/05/24 05/05/24 Range/Units 00:04 09:40 WBC 4.26 L (4.8-10.8) K/ul Hgb 7.5 L 9.1 L (14.0-18.0) g/dl Hct 22.3 L 27.8 L (42.0-52.0) % Plt Count 67 L (130-400) K/uL BMP 05/05/24 09:40 Sodium 139 Potassium 4.7 Chloride 115 H Carbon Dioxide 21 BUN 38 H Creatinine 1.97 H Glucose 207 H Calcium 7.4 L
--- NOTE | 2024-05-05 17:16 | Nephrology Consultation ---
Date of Consultation May 05, 2024 Assessment & Plan (1) LUCRETIA (acute kidney injury): Stage I presume nonoliguric worsening acute kidney injury. Baseline creatinine 1.2 though labile. This in the setting of chronic interstitial nephritis and significant liver disease. May be delayed reaction to severe anemia with which he presented. That said no significant hypotension or tachycardia has been noted. Would rule out obstruction; suspect ischemic etiology whether prerenal or ATN - Daily basic metabolic panel Urinalysis with microscopy once CBI is weaned > so ordered Do recommend renal ultrasound if no improvement in AM and defer to primary service to order Strict intake and output once CBI is weaned Continue to avoid nephrotoxins such as NSAIDs and unless lifesaving IV contrast Given his GI history would consider PPI obligate at this point ->supportive care at this point; no IVF indicated after 4 units PRBC and maintained BP Care coordinated w/ Dr Walton (2) Irradiation cystitis with hematuria: Recurrent/chronic issue; as per urology (3) Pancytopenia: daily cbc >transfuse prn History of Present Illness Reason for Consultation: Worsening LUCRETIA Requesting Physician: Dr Walton Attending Physician: Garrett Walton MD History of Present Illness 73-year-old male whom I am asked to evaluate for worsening LUCRETIA was admitted May 03 with acute on chronic anemia attributed to persistent hematuria from radiation cystitis. 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 Frequent admissions here for hematuria; discharged most recently April 27 after 1 week admission for radiation cystitis and Proteus UTI. Outpatient hyperbaric oxygen therapy was planned. After admission he was started on continuous bladder irrigation and received 4 units of packed red cells for presenting hemoglobin of 6.1, improved to 9.1. Urology is following. Baseline creatinine is labile but is probably in the 1.2 range. He did have mild/stage I LUCRETIA last admission with peak creatinine 1.5; was 1.2 by hospital discharge. Presented with creatinine 1.6 on May 03; today creatinine is 2.0. His outpatient Lasix and potassium supplements have been on hold. His outpatient allopurinol was continued. Patient did present with right foot pain in addition to irradiation cystitis. he is not receiving IVF at this time. Allergies Allergy/AdvReac Type Severity Reaction Status Date / Time No Known Allergies Allergy Mild Verified 05/03/24 09:17 Home Medications Medication Instructions Recorded Confirmed Type allopurinol 100 mg tablet 100 mg PO QAM 05/16/20 05/03/24 History furosemide 20 mg tablet (Lasix) 40 mg PO QAM 11/02/22 05/03/24 History Lactobacil.acidophilus-Bifido.animalis 1 cap PO QAM 05/17/23 05/03/24 History 5 billion cell sprinkle capsule (Probiotic) ferrous sulfate 325 mg (65 mg 650 mg PO QAM 05/17/23 05/03/24 History iron) tablet (iron) ymgdcfnzhoyo-vtb-mxcvg acid-vit 1 tab PO DAILY 05/17/23 05/03/24 History K-lycop 400 mcg-20 mcg-370 mcg tablet (Men's 50 Plus Multivitamin) duloxetine 30 mg capsule,delayed 30 mg PO QAM 02/02/24 05/03/24 History release pantoprazole 40 mg tablet,delayed 40 mg PO AMPM 02/02/24 05/03/24 History release rifaximin 550 mg tablet (Xifaxan) 550 mg PO AMHS 02/02/24 05/03/24 History metoclopramide HCl 5 mg tablet 5 mg PO TID PRN Nausea And Vomiting 02/20/24 05/03/24 History acetaminophen 500 mg tablet 1,000 mg PO BID PRN Pain 03/19/24 05/03/24 History finasteride 5 mg tablet 5 mg PO QAM 03/20/24 05/03/24 History insulin glargine 100 unit/mL 26 unit subcut QPM 03/20/24 05/03/24 History subcutaneous solution (Lantus U-100 Insulin) lactulose 10 gram oral packet 10 g PO BID PRN . 03/20/24 05/03/24 History (Kristalose) mirtazapine 30 mg tablet 30 mg PO HS PRN Sleep 03/20/24 05/03/24 History potassium chloride 20 mEq 20 meq PO DAILY 03/20/24 05/03/24 History tablet,extended release(part/cryst) zinc gluconate 50 mg tablet 50 mg PO DAILY 03/20/24 05/03/24 History solifenacin 5 mg tablet 5 mg PO QAM 04/20/24 05/03/24 History acetylcysteine 600 mg capsule 600 mg PO DAILY 05/03/24 05/03/24 History Patient History Medical History Thrombocytopenia DM type 2 (diabetes mellitus, type 2) Hx of malignant neoplasm of prostate History of blood transfusion 11/2022 Hepatocellular carcinoma Spinal fracture of T12 vertebra History of recent hospitalization 06/2023 [facility] hepatic encephalopathy Liver spots Under surveillance, stable per patient Anxiety and depression 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 Anemia of chronic disease under surveillance History of panic attacks Gout No current issues GERD (gastroesophageal reflux disease) GAVE (gastric antral vascular ectasia) Hypertension Hx Esophageal varices EGD 05/22/23 ([facility]): Grade 1 varices in distal esophagus without high risk stigmata Upper GI bleed Hx Psoriasis Surgical History History of left cataract surgery History of right cataract surgery History of prostate biopsy malignant S/P TIPS (transjugular intrahepatic portosystemic shunt) History of esophagogastroduodenoscopy (EGD) Most recent 05/2023 [facility] History of colonoscopy with polypectomy History of tonsillectomy and adenoidectomy History of abdominal paracentesis Multiple, most recent 01/2023 Family History Father , "3/4 liver gone due to drinking" Colorectal cancer, Onset Age: 63 Mother Lung cancer Daughter Cancer cervical and thyroid cancers Ovarian cancer Other No family history of adverse response to anesthesia 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 Smoking Status: Never smoker Second Hand Exposure: No; Do You Dip or Chew Tobacco: No; Hx Alcohol Use: No Hx Substance Use: No Preferred Language: Senegalese Communication Ability: Effective Visual Impairment: No Limitations Hearing Ability: Normal Web Services Professional Required: No Beliefs That Will Affect Care: None marital status: Current Living Situation: Spouse Current Living Situation Comment: 1 level single family home 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 How many Children do You have: 6 How many Children do You have Comment: one , eldest daughter in her sleep from seizure disorder Feels Safe at Home: Yes Childhood Exposure to Second-Hand Smoke: Yes Diet Comment: "I watch my sugar, average fasting is 140 mg/dl" caffeine: Yes (cola, sugar free, decaf) during the past year weight has: remained stable Dental Care, Regularly: No Physical Activity Frequency: Does not Exercise Seatbelt Use: always Sunscreen Use: Yes Assistive Devices: Glasses, Oxygen - at Night and Walker Review of Systems 2 Review of Systems: All systems reviewed & are unremarkable except as noted in HPI & below Physical Exam 2 Constitutional: well developed, + acute distress (mild d/t R hip pain he states is chronic), + ill appearing, + cachectic, + frail appearing and cooperative Eyes: EOM intact bilaterally ENMT: Ears: no external ear abnormality Nose: no external nose abnormality Mouth: + dry oral mucous membranes Neck: no nuchal rigidity Respiratory: normal respiratory effort Auscultation: + diminished lung sounds Cardiovascular: Rate/Rhythm: regular rate and regular rhythm Extremities: n o edema Gastrointestinal (Abdomen): Inspection/Auscultation: normal bowel sounds P ercussion/Palpation: abdomen soft; abdomen nontender Musculoskeletal: Extremities: strength 5/5 throughout Skin: no rashes, warm and dry Neurologic: ramirez, fluent speech, no tremor Psychiatric: Orientation: alert and oriented x 3 Results & Data Vital Signs (Past 12 Hours) Vital Signs Temp Pulse Pulse Resp BP BP Pulse Ox 05/05/24 16:29 66 05/05/24 15:49 36.6 C 72 18 143/67 H 94 05/05/24 12:08 36.7 C 67 18 123/59 L 98 05/05/24 08:22 59 L 05/05/24 07:24 36.3 C L 61 146/70 H 05/05/24 06:35 36.3 C L 60 18 132/65 98 05/05/24 05:35 36.3 C L 61 18 129/65 98 05/05/24 05:05 36.4 C L 65 18 149/64 H 100 O2 Del Method 05/05/24 16:29 05/05/24 15:49 Room Air 05/05/24 12:08 Room Air 05/05/24 08:22 05/05/24 07:24 05/05/24 06:35 05/05/24 05:35 05/05/24 05:05 Laboratory Results 05/05/24 09:40 05/05/24 09:40
[2024-05-05] MEDS: MIRTAZAPINE TAB 15 MG TAB PO PRN (21:40)
[2024-05-05] MEDS: LANTUS PER UNIT CHARGE SQ SCH (22:04)
--- NOTE | 2024-05-05 22:48 | Communication Note ---
Date of Service: May 05, 2024 I was called by nursing staff that patient had continuous bladder irrigation titrated off earlier today. Thus far in her shift she has had the catheter nicol tted off at least 3 times. She is able to flush and irrigate the catheter but getting large blood clots. I reported to the patient's bedside and flushed and irrigated his catheter getting multiple clots. It appears as though the patient had some fresh blood clots with these maneuvers. As the catheter has clotted off approximately 3 times thus far this shift feel be best to reinstitute continuous bladder irrigation. After flushing irrigating the catheter to ensure patency continuous bladder irrigation was turned on and patient's catheter appear to be patent. We will continue continuous bladder irrigation this evening with further attempts to titrate this down on day shift.
[2024-05-06 08:33] LABS: Hematocrit (blood only) 23.9 % (42.0-52.0); Mean Corpuscular Hemoglobin 31.9 pg (25.0-34.0); Mean Corpuscular Hgb Conc 33.5 g/dL (32.0-36.0); Mean Corpuscular Volume 95.2 fL (80.0-100.0); Mean Platelet Volume 11.6 fL (9.4-12.4); Platelet Count 77 K/uL (130-400); RDW Coefficient of Variation 18.6 % (11.5-14.5); RDW Standard Deviation 61.1 fL (36.4-46.3); Red Blood Count 2.51 M/uL (4.70-6.10); White Blood Count 4.34 K/ul (4.8-10.8)
[2024-05-06 08:52] LABS: BUN Creatinine Ratio 24.2 (10-20); Calcium 7.1 mg/dl (8.6-10.3); Creatinine Clr Calc Pharmacy 42.2 ml/min; Est GFR (African American) 48.4 ml/min; Est GFR (Non-African American) 41.8 ml/min; Potassium 4.6 mmol/L (3.5-5.1)
--- NOTE | 2024-05-06 08:58 | Urology Progress Note ---
Date of Service May 06, 2024 Assessment & Plan (1) Acute urinary retention: (2) Hematuria: Plan: Follow-up of urinary retention/gross hematuria Ongoing hematuria most likely related to radiation cystitis Patient is afebrile with stable vitals Labs reviewedcreatinine 1.61, WBC 4.34, hemoglobin 8.0 (has received 4 units of PRBCs since arrival) Kan is patent and draining appropriately, urine is clear with minimal blood tinge with CBI on medium Catheter required manual irrigation and CBI overnight Recommend titrate down CBI as appropriate Okay to gently hand irrigate catheter as needed for obstruction Maintain Kan catheter for now Consider initiation of empiric antibiotics given ongoing CBI Goal will be to get patient discharged to have f/u for his liver lesion treated so he can ultimately get to hyperbaric oxygen chamber treatment Continue to trend labs, transfuse as necessary per primary team Patient will ultimately need to follow-up with primary urologist Dr. Peraza Urology will follow Admission and Anticipated Discharge Date Admission Date: May 03, 2024 Subjective Patient seen and examined at bedside this am His CBI was clamped yesterday during the day for clamp trial, urine became more bloody and he had increasing discomfort/spasms He was irrigated yesterday afternoon by Dr. Rashid with small amount of clot returned, CBI restarted CBI was titrated down overnight but had issues with clot obstruction, so CBI was restarted again after manual irrigation per notes This morning his urine appears pretty clear with CBI on medium CBI slowed during exam Denies suprapubic or bladder spasms at this time Denies fever or chills Review of Systems Constitutional: as per Subjective / HPI Genitourinary: + as per Subjective / HPI Physical Exam Constitutional: no acute distress Respiratory: normal respiratory effort; no respiratory distress and no labored breathing Musculoskeletal: Head/Neck/Chest: normocephalic Neurologic: moves all extremities and awake Psychiatric: Orientation: alert and oriented x 3 Genitourinary: Kan draining clear urine with minimal blood tinge with CBI on medium, CBI slowed during exam Results & Data Vital Signs (Past 12 Hours) Vital Signs Temp Pulse Pulse Resp BP Pulse Ox O2 Del Method 05/06/24 07:52 36.6 C 67 18 133/67 97 Room Air 05/06/24 07:06 66 05/06/24 03:19 36.3 C L 68 18 143/77 H 94 Room Air 05/05/24 23:11 36.6 C 72 18 143/67 H 93 Room Air 05/05/24 22:58 72 PG Care Time/CCT Total # of Minutes Spent Total Time Spent with Patient: Total time spent is greater than 50% in coordination of care (as documented) at patient's floor/unit and/or counseling patient: Coding Level of Care Code 87340 SUB INP/OBS CARE 2/35MIN Diagnoses Acute urinary retention R33.8 Hematuria R31.0 Hematuria type: gross (2) Hematuria Hematuria type: gross Qualified Code(s): R31.0 - Gross hematuria
--- NOTE | 2024-05-06 10:04 | Nephrology Progress Note ---
Date of Service May 06, 2024 Assessment & Plan Admission and Anticipated Discharge Date Admission Date: May 03, 2024 Subjective Assessment & Plan (1) LUCRETIA (acute kidney injury): Stage I presume nonoliguric worsening acute kidney injury. Baseline creatinine 1.2 though labile. This in the setting of chronic interstitial nephritis and significant liver disease. LUCRETIA from Severe Anemia likely causing ischemic ATI. Creat is better today. Making lot of urine. Daily basic metabolic panel Strict intake and output once CBI is weaned Continue to avoid nephrotoxins such as NSAIDs and unless lifesaving IV contrast Given his GI history would consider PPI obligate at this point supportive care at this point. no IVF indicated after 4 units PRBC and maintained BP (2) Irradiation cystitis with hematuria: Recurrent/chronic issue; as per urology. On CBI currently and seems hematuria is less today. hgb down a bit from yesterday's peak (3) Pancytopenia: daily cbc. transfuse prn Results & Data Vital Signs (Past 12 Hours) Vital Signs Temp Pulse Pulse Resp BP Pulse Ox O2 Del Method 05/06/24 07:52 36.6 C 67 18 133/67 97 Room Air 05/06/24 07:06 66 05/06/24 03:19 36.3 C L 68 18 143/77 H 94 Room Air 05/05/24 23:11 36.6 C 72 18 143/67 H 93 Room Air 05/05/24 22:58 72
--- NOTE | 2024-05-06 15:36 | Hospitalist Progress Note ---
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 Found to have hemoglobin of 6.1 and LUCRETIA with creatinine 1.61 Radiation cystitis with hematuria Acute on chronic blood loss anemia History of prostate cancer s/p radiation complicated by radiation cystitis. Recurrent hospitalization due to radiation cystitis recently. Status post 2 units of packed RBC Hemoglobin around 8. Urology on board; currently on CBI. Per urology, goal is to get patient discharged and restart hyperbaric oxygen chamber treatment. Empiric antibiotic started while patient is on CBI LUCRETIA- Continues to worsen. Baseline creatinine 1.2. Creatinine up trended to 1.9 and down trended. Avoid nephrotoxic agent Diabetes mellitus type 2- On Lantus and Humalog. Insulin adjusted again today. Pancytopenia secondary cirrhosis of liver, FOFANA cirrhosis status post TIPS and Revision, history of esophageal varices and ascites requiring paracentesis- m onitor. continue Xifaxan and lactulose. Hold Lasix for now, will resume as indicated. HCC- [place] [facility] [place] been [place] by family due to hospitalization Hyperuricemia, history of gout- continue allopurinol. X-ray foot with no evidence of acute bony injury. DVT prophylaxis- SCD, chemoprophylaxis contraindicated due to hematuria and anemia Disposition-pending medical stability. Continues to require continuous bladder irrigation due to radiation cystitis and gross hematuria Time spent approximately 35 minutes Please note the above document was generated using voice recognition software. It may contain grammatical, syntax or spelling errors. Any formal questions or concerns about the content, text or information contained within the body of this dictation should be directly addressed to the provider for clarification Admission and Anticipated Discharge Date Admission Date: May 03, 2024 Subjective Patient continues to undergo bladder irrigation; he still continues to have gross hematuria. He denies any abdominal pain, fever, chills, chest pain. Vital signs remained stable. Review of Systems Review of Systems: All systems reviewed & are unremarkable except as noted in Subjective Physical Exam Physical Exam: General: elderly male, Lying comfortably in bed, not in distress, on room air HEENT: EOMI, JUAN ANTONIO, MMM Chest: Clear breath sounds bilaterally, no wheezes or crackles CVS: Regular rate and rhythm, normal heart sounds, no murmur Abdomen: Soft, non tender, not distended, normal bowel sounds Neuro: Awake, alert, oriented, conversing well, non focal Extremities: trace edema Genitourinary: Kan with hematuria, CBI running Results & Data Results & Data Vital Signs (Past 12 Hours) Vital Signs Temp Pulse Pulse Resp BP Pulse Ox O2 Del Method 05/06/24 11:51 37.5 C 70 16 134/67 96 Room Air 05/06/24 07:52 36.6 C 67 18 133/67 97 Room Air 05/06/24 07:06 66
[2024-05-06] MEDS: cefTRIAXone SODIUM 2,000 MG/50 ML BAG IV SCH (16:00)
[2024-05-07 06:50] LABS: Basophils # (auto) 0.02 K/uL (0.00-0.20); Basophils % (auto) 0.5 %; Eosinophils # (auto) 0.35 K/uL (0.00-0.50); Eosinophils % (auto) 8.3 %; Hematocrit (blood only) 23.1 % (42.0-52.0); Hemoglobin 7.5 g/dl (14.0-18.0); Immature Granulocytes # (auto) 0.02 K/uL (0.01-0.20); Immature Granulocytes % (auto) 0.5 %; Lymphocytes # (auto) 0.73 K/uL (1.20-3.40); Lymphocytes % (auto) 17.3 %; Mean Corpuscular Hemoglobin 31.1 pg (25.0-34.0); Mean Corpuscular Hgb Conc 32.5 g/dL (32.0-36.0); Mean Corpuscular Volume 95.9 fL (80.0-100.0); Mean Platelet Volume 11.4 fL (9.4-12.4); Monocytes # (auto) 0.25 K/uL (0.11-0.59); Monocytes % (auto) 5.9 %; Neutrophils # (auto) 2.86 K/uL (1.40-6.50); Neutrophils % (auto) 67.5 %; Platelet Count 80 K/uL (130-400); RDW Coefficient of Variation 19.9 % (11.5-14.5); RDW Standard Deviation 66.4 fL (36.4-46.3); Red Blood Count 2.41 M/uL (4.70-6.10); White Blood Count 4.23 K/ul (4.8-10.8)
[2024-05-07 07:12] LABS: BUN Creatinine Ratio 22.2 (10-20); Calcium 7.2 mg/dl (8.6-10.3); Creatinine Clr Calc Pharmacy 36.7 ml/min; Est GFR (Non-African American) 35.3 ml/min
[2024-05-07 07:20] LABS: Anisocytosis Present; Polychromasia 1+; Tear Drop Cells 1+
--- NOTE | 2024-05-07 08:28 | Urology Progress Note ---
Date of Service May 07, 2024 Assessment & Plan (1) Acute urinary retention: (2) Hematuria: Plan: Follow-up of urinary retention/gross hematuria Ongoing hematuria most likely related to radiation cystitis Patient remains afebrile, stable vitals Labs reviewedcreatinine 1.85, WBC 4.23, hemoglobin 7.5 (has received 4 units of PRBCs since arrival) Kan is patent and draining appropriately, urine is light collins red with CBI on slow Titrated CBI down further during my exam, but upon reassessment mid morning it was increased again by nursing Continue to titrate down CBI as appropriate Okay to gently hand irrigate catheter as needed for obstruction Maintain Kan catheter for now Discussed case with his attending hospitalist who reached out to his urologist, Dr. Peraza Planning to transfer for nephrostomy tubes for urinary diversion Agree with this plan as he does not appear to be improving with conservative management and hemoglobin is dropping again Continue supportive care and medical management per hospital medicine service Urology will follow Admission and Anticipated Discharge Date Admission Date: May 03, 2024 Subjective Patient resting in bed, no apparent distress No reported issues with catheter overnight Kan patent and draining light collins red urine with CBI on slow CBI titrated down further during exam at 0715 Reassessed patient around 0900 and his CBI was increased by nursing to moderate/slow due to bladder spasms Review of Systems Constitutional: as per Subjective / HPI Genitourinary: + as per Subjective / HPI Physical Exam Constitutional: no acute distress Respiratory: normal respiratory effort; no respiratory distress and no labored breathing Musculoskeletal: Head/Neck/Chest: normocephalic Neurologic: moves all extremities and awake Psychiatric: Orientation: alert and oriented x 3 Genitourinary: Kan draining light collins red with CBI on slow, CBI slowed during exam Results & Data Vital Signs (Past 12 Hours) Vital Signs Temp Pulse Pulse Resp BP Pulse Ox O2 Del Method 05/06/24 23:34 36.8 C 75 18 136/58 L 96 Room Air 05/06/24 22:02 Room Air 05/06/24 22:01 74 PG Care Time/CCT Total # of Minutes Spent Total Time Spent with Patient: Total time spent is greater than 50% in coordination of care (as documented) at patient's floor/unit and/or counseling patient: Coding Level of Care Code 47469 SUB INP/OBS CARE 1/25MIN Diagnoses Acute urinary retention R33.8 Hematuria R31.0 Hematuria type: gross (2) Hematuria Hematuria type: gross Qualified Code(s): R31.0 - Gross hematuria
[2024-05-07] MEDS: PROMETHAZINE HCL 6.25 MG in SODIUM CHLORIDE 0.9% 50 ML IV PRN (11:59)
--- NOTE | 2024-05-07 14:16 | Hospitalist Progress Note ---
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 Found to have hemoglobin of 6.1 and LUCRETIA with creatinine 1.61 Radiation cystitis with hematuria Acute on chronic blood loss anemia History of prostate cancer s/p radiation complicated by radiation cystitis. Recurrent hospitalization due to radiation cystitis recently. Status post 2 units of packed RBC Hemoglobin on presentation of 6.1, status post 2 unit of transfusion. Went up to 9.1 on 05/05; downtrending to 7.5 today. Patient continues to have hematuria with clots requiring continuous bladder irrigation. He had multiple hospitalization due to the same issue in recent months. He has required multiple transfusions as well. His urologist, Dr. Frank Peraza suggested urinary diversion with bilateral percutaneous nephrostomy. Discussion was done with patient and patient's son at bedside. Both are agreeable. Discussed with transfer center; reviewed by urology and interventional radiology on-call. Patient accepted for transfer. Continue continuous bladder irrigation en-route. Cirrhosis secondary to FOFANA, decompensated Requires paracentesis every 2 weeks Last paracentesis was on April 24, 2024 Continue to monitor; might need paracentesis in next few days Currently Lasix is on hold Continue lactulose; titrate to 3 bowel movement per day. Continue rifaximin LUCRETIA- Baseline creatinine 1.2. Creatinine up trended to 1.9 > today 1.85. No further recommendation by nephrology at this time. Diabetes mellitus type 2- On Lantus and Humalog. Insulin adjusted again today. Pancytopenia secondary cirrhosis of liver,- continue to monitor HCC- scheduled [place] [facility] [place] by family due to hospitalization Hyperuricemia, history of gout- continue allopurinol. X-ray foot with no evidence of acute bony injury. DVT prophylaxis- SCD, chemoprophylaxis contraindicated due to hematuria and anemia Disposition-Transfer to tertiary care center for IR guided pc nephrostomy tube. Time spent evaluating patient, direct bedside care, chart review, placing orders, interpretation of diagnostic studies, discussion with consultants, patient, and family members, as well as other required patient management activities is 75 minutes Please note the above document was generated using voice recognition software. It may contain grammatical, syntax or spelling errors. Any formal questions or concerns about the content, text or information contained within the body of this dictation should be directly addressed to the provider for clarification Admission and Anticipated Discharge Date Admission Date: May 03, 2024 Subjective Patient seen and examined at bedside. He is comfortably lying in the bed; not in distress Continues to be on continuous bladder irrigation with reddish urine. Review of Systems Review of Systems: All systems reviewed & are unremarkable except as noted in Subjective Physical Exam Physical Exam: General: elderly male, Lying comfortably in bed, not in distress, on room air HEENT: EOMI, JUAN ANTONIO, MMM Chest: Clear breath sounds bilaterally, no wheezes or crackles CVS: Regular rate and rhythm, normal heart sounds, no murmur Abdomen: Soft, non tender, distended, normal bowel sounds Neuro: Awake, alert, oriented, conversing well, non focal Extremities: trace edema Genitourinary: Kan with hematuria, CBI running Results & Data Results & Data Vital Signs (Past 12 Hours) Vital Signs Temp Pulse Resp BP Pulse Ox O2 Del Method 05/07/24 11:03 36.6 C 91 H 18 164/63 H 96 Room Air 05/07/24 09:53 Room Air 05/07/24 08:23 36.4 C L 87 18 156/64 H 95 Room Air
--- NOTE | 2024-05-07 14:47 | Discharge Summary ---
Date of Service May 07, 2024 Admission HPI Per Admitting Provider History obtained from patient and records. Limited history from patient secondary to lethargic state post Ativan administration at the ER. 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 Multiple admissions (almost monthly) since 2021. Last 3 admissions for hematuria. Recent confinement confinement April 20 to 2023 for hematuria attributed to radiation cystitis and Proteus status post antibiotic Rx UTI. Hemoglobin 7.8 at time of discharge last week. Urology recommended outpatient hyperbaric oxygen therapy. Patient with persistent hematuria/blood clots in the urine following discharge from the hospital. Denies abdominal/flank pain, black/bloody stools. Patient experienced sudden onset right foot pain last night. May have had it before from possible gout. No recollection of recent trauma. No fever, no chills. Patient called EMS to home because of severe pain. Patient later complained to EMS of sharp chest pain with shortness of breath. Patient brought to the ER for evaluation. IV Ativan administered due to patient agitation. Patient currently lethargic and unable to answer most questions. 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 Admission Exam Per Admitting Provider GENERAL: Lethargic, uncomfortable, no respiratory distress SKIN: Pallor, warm HEENT: Alopecia, pale palpebral conjunctivae, no ptosis, dry buccal mucosa NECK : Supple, no tenderness CHEST : Decreased breath sounds, no tenderness HEART : RRR, no obvious murmurs ABDOMEN: Some distention, nontender EXTREMITIES : Minimal LE swelling, no overt right foot tenderness NEUROLOGIC : Lethargic, no facial asymmetry, gait and stance not assessed Principal Diagnosis Hematuria secondary to radiation cystitis Discharge Exam General: elderly male, Lying comfortably in bed, not in distress, on room air HEENT: EOMI, JUAN ANTONIO, MMM Chest: Clear breath sounds bilaterally, no wheezes or crackles CVS: Regular rate and rhythm, normal heart sounds, no murmur Abdomen: Soft, non tender, distended, normal bowel sounds Neuro: Awake, alert, oriented, conversing well, non focal Extremities: trace edema Genitourinary: Kan with hematuria, CBI running Discharge Data Allergies Allergy/AdvReac Type Severity Reaction Status Date / Time No Known Allergies Allergy Mild Verified 05/03/24 09:17 Consultations 05/03/24 03:43 ED Decision to Admit Stat 05/03/24 05:27 Consult Urology Routine 05/05/24 12:46 Consult Nephrology Routine Hospital Course (1) Irradiation cystitis with hematuria: (2) Anemia requiring transfusions: (3) Acute kidney injury superimposed on chronic kidney disease: (4) Thrombocytopenia: (5) DM type 2 (diabetes mellitus, type 2): (6) 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 Found to have hemoglobin of 6.1 and LUCRETIA with creatinine 1.61 Radiation cystitis with hematuria Acute on chronic blood loss anemia History of prostate cancer s/p radiation complicated by radiation cystitis. Recurrent hospitalization due to radiation cystitis recently. Status post 2 units of packed RBC Hemoglobin on presentation of 6.1, status post 2 unit of transfusion. Went up to 9.1 on 05/05; downtrending to 7.5 today. Patient continues to have hematuria with clots requiring continuous bladder irrigation. He had multiple hospitalization due to the same issue in recent months. He has required multiple transfusions as well. His urologist, Dr. Frank Peraza suggested urinary diversion with bilateral percutaneous nephrostomy. Discussion was done with patient and patient's son at bedside. Both are agreeable. Discussed with transfer center; reviewed by urology and interventional radiology on-call. Patient accepted for transfer. Continue continuous bladder irrigation en-route. 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 Continue rifaximin LUCRETIA- Baseline creatinine 1.2. Creatinine up trended to 1.9 > today 1.85. No further recommendation by nephrology at this time. Diabetes mellitus type 2- On Lantus and Humalog. Insulin adjusted again today. Pancytopenia secondary cirrhosis of liver,- continue to monitor HCC- scheduled for IR embolization on 05/06 at [facility] [place] which has been cancelled by family due to hospitalization Hyperuricemia, history of gout- continue allopurinol. X-ray foot with no evidence of acute bony injury. DVT prophylaxis- SCD, chemoprophylaxis contraindicated due to hematuria and anemia Disposition-Transfer to tertiary [facility] for IR guided pc nephrostomy tube. Please note the above document was generated using voice recognition software. It may contain grammatical, syntax or spelling errors. Any formal questions or concerns about the content, text or information contained within the body of this dictation should be directly addressed to the provider for clarification Total Time Total Time Spent Total Time Spent (In Minutes): 45 Total Time Includes: Examination of the Patient, Discharge Planning, Medication Reconciliation, Communication With Other Providers and Other Discharge Plan Discharge Items Patient Disposition: Transfer Acute [facility] Reason For Visit: SYMPTOMATIC ANEMIA Discharge Diagnosis: Radiation cystitis Acute blood loss anemia LUCRETIA Activity: Resume your previous activity Non-emergency contact: Primary Care Provider Call non-emergency contact if: you have any medication questions and your symptoms worsen Follow-up/Referrals: Francisco Cisse MD [Primary Care Provider] - Diet: Regular Addtl Attending Provider Instructions: Date of Service: May 07, 2024 Current Inpatient Medications Acetaminophen (Acetaminophen 500 Mg Tab) 500 mg PO Q6H PRN PRN Reason: fever/pain Stop: 06/02/24 04:38 Last Admin: 05/05/24 21:40 Dose: 500 mg Allopurinol (Allopurinol 100 Mg Tab) 100 mg PO QAM JODI Stop: 06/03/24 08:59 Last Admin: 05/07/24 09:01 Dose: 100 mg Dextrose (Dextrose 50% 50 Ml Syringe) 25 - 50 ml IV UD PRN; Protocol PRN Reason: Hypoglycemia Protocol Stop: 06/02/24 15:13 Duloxetine HCl (Duloxetine Hcl 30 Mg Cap) 30 mg PO QAM [facility] Stop: 06/03/24 08:59 Last Admin: 05/07/24 09:00 Dose: 30 mg Ferrous Sulfate (Ferrous Sulfate 325 Mg Tab) 650 mg PO QAM [facility] Stop: 06/03/24 08:59 Last Admin: 05/07/24 09:01 Dose: 650 mg Finasteride (Finasteride 5 Mg Tab) 5 mg PO QAM [facility] Stop: 06/03/24 08:59 Last Admin: 05/07/24 09:00 Dose: 5 mg Glucagon (Glucagon For Inj 1 Mg Vial) 1 mg SQ UD PRN; Protocol PRN Reason: Hypoglycemia Protocol Stop: 06/02/24 15:13 Glucose (Glucose 40% Gel 15 Gm Tube) 15 - 30 gm PO UD PRN; Protocol PRN Reason: Hypoglycemia Protocol Stop: 06/02/24 15:13 Glucose (Glucose 10 Tab/Tube) 4 - 8 tab PO UD PRN; Protocol PRN Reason: Hypoglycemia Treatment Stop: 06/02/24 15:13 Promethazine HCl 6.25 mg/ (Sodium Chloride) 50.25 mls @ 201 mls/hr IV Q6H PRN PRN Reason: Nausea And Vomiting Stop: 06/02/24 04:38 Last Infusion: 05/07/24 12:43 Dose: Infused Ceftriaxone Sodium (Rocephin) 2,000 mg in 50 mls @ 100 mls/hr IV Q24H [facility] Stop: 05/08/24 15:44 Last Infusion: 05/06/24 16:34 Dose: Infused Insulin Aspart (Insulin Aspart Per Unit Charge) 0 units SC ACHS [facility] Stop: 06/02/24 05:55 Last Admin: 05/07/24 13:15 Dose: 2 units Insulin Glargine (Lantus Per Unit Charge) 15 units SQ HS [facility] Stop: 06/04/24 20:59 Last Admin: 05/06/24 20:21 Dose: 15 units Lactulose (Lactulose Syrup 20 Gm/30 Ml Udc) 10 gm PO BID PRN PRN Reason: Constipation Stop: 06/02/24 15:16 Mirtazapine (Mirtazapine Tab 15 Mg Tab) 30 mg PO HS PRN PRN Reason: Sleep Stop: 06/02/24 15:16 Last Admin: 05/06/24 20:46 Dose: 30 mg Miscellaneous (Carbohydrates For Hypoglycemia ) 15 - 30 gm PO UD PRN PRN Reason: Hypoglycemia Protocol Stop: 06/02/24 15:13 Oxybutynin Chloride (Oxybutynin Chloride Xl 5 Mg Tabcr) 5 mg PO QAM JODI; Protocol Stop: 06/04/24 08:59 Last Admin: 05/07/24 09:00 Dose: 5 mg Oxycodone HCl (Oxycodone Hcl Ir 5 Mg Tab (Immediate Release)) 5 mg PO Q4H PRN PRN Reason: Pain Stop: 05/17/24 04:38 Last Admin: 05/06/24 08:09 Dose: 5 mg Pantoprazole Sodium (Pantoprazole 40 Mg Tab) 40 mg PO BID JODI Stop: 06/02/24 20:59 Last Admin: 05/07/24 09:02 Dose: 40 mg Rifaximin (Rifaximin 550 Mg Tablet) 550 mg PO [facility] JODI Stop: 06/02/24 20:59 Last Admin: 05/07/24 09:02 Dose: 550 mg Pending Studies at Discharge: No Stand-Alone Forms: [facility] Skilled Items Patient informed of condition?: Yes DNR: No Discharge Level of Care: Other Communicable Disease: No Discharge Prognosis: Stable Lines: Peripheral IV Urinary Catheter: Yes Medications and DC Order Prescriptions: Continued zinc gluconate 50 mg tablet 50 mg PO DAILY potassium chloride 20 mEq tablet,ER particles/crystals 20 meq PO DAILY allopurinol 100 mg Tablet 100 mg PO QAM furosemide [Lasix] 20 mg Tablet 40 mg PO QAM ferrous sulfate [iron] 325 mg (65 mg iron) Tablet 650 mg PO QAM Men's 50 Plus Multivitamin 400-20-370 mcg Tablet 1 tab PO DAILY Rx Instructions: Unable to verify OTC meds with patient at this date/time. Probiotic 5 billion cell Capsule, Sprinkle 1 cap PO QAM finasteride 5 mg tablet 5 mg PO QAM insulin glargine [Lantus U-100 Insulin] 100 unit/mL solution 26 unit subcut QPM acetylcysteine 600 mg Capsule 600 mg PO DAILY pantoprazole 40 mg tablet,delayed release (DR/EC) 40 mg PO AMPM duloxetine 30 mg capsule,delayed release(DR/EC) 30 mg PO QAM Xifaxan 550 mg tablet 550 mg PO AMHS metoclopramide HCl 5 mg tablet 5 mg PO TID PRN (Reason: Nausea And Vomiting) mirtazapine 30 mg tablet 30 mg PO HS PRN (Reason: Sleep) acetaminophen 500 mg Tablet 1,000 mg PO BID MDD 2000mg/24hr PRN (Reason: Pain) lactulose [Kristalose] 10 gram packet 10 g PO BID PRN (Reason: .) Rx Instructions: hold for more than 3 more BMs solifenacin 5 mg tablet 5 mg PO QAM Discharge Orders: Discharge Order (Routine); Ordered 05/08/24 Ordered By: Marcus Sheppard Admission Data Admit Date/Time: 05/03/24 04:36 Attending Provider: Marcus Sheppard Admit Provider: Yordan Andersen Primary Care Provider: Francisco Cisse Other Providers: Yordan Andersen; Emeterio Philippe; Alex Blanco; Jose Ramon Rubi; Kristen Crowell; Pablo Ellis; Clara Chand Melissa A.; Zane Salas; Vandana Rios; Rc Borja; Truman Unger; Raulito Rashid; Renetta Bravo
[2024-05-08 07:24] LABS: Hematocrit (blood only) 21.1 % (42.0-52.0); Hemoglobin 6.8 g/dl (14.0-18.0); Mean Corpuscular Hemoglobin 31.2 pg (25.0-34.0); Mean Corpuscular Hgb Conc 32.2 g/dL (32.0-36.0); Mean Corpuscular Volume 96.8 fL (80.0-100.0); Mean Platelet Volume 11.4 fL (9.4-12.4); Nucleated RBC # (auto) 0.02 K/uL (0.00-0.12); Nucleated RBC % (auto) 0.6 %; Platelet Count 75 K/uL (130-400); RDW Coefficient of Variation 19.7 % (11.5-14.5); RDW Standard Deviation 67.4 fL (36.4-46.3); Red Blood Count 2.18 M/uL (4.70-6.10); White Blood Count 3.17 K/ul (4.8-10.8)
[2024-05-08] MEDS ORDERED: SODIUM CHLORIDE 0.9% 250 ML IV PRN (07:29)
[2024-05-08 07:37] LABS: BUN Creatinine Ratio 26.2 (10-20); Calcium 7.4 mg/dl (8.6-10.3); Creatinine Clr Calc Pharmacy 40.4 ml/min; Est GFR (Non-African American) 39.7 ml/min; Potassium 4.9 mmol/L (3.5-5.1)
[2024-05-08 07:42] LABS: Eosinophils # (auto) 0.28 K/uL (0.00-0.50); Eosinophils % (auto) 8.8 %; Immature Granulocytes # (auto) 0.02 K/uL (0.01-0.20); Immature Granulocytes % (auto) 0.6 %; Lymphocytes # (auto) 0.69 K/uL (1.20-3.40); Lymphocytes % (auto) 21.8 %; Monocytes # (auto) 0.21 K/uL (0.11-0.59); Monocytes % (auto) 6.6 %; Neutrophils # (auto) 1.97 K/uL (1.40-6.50); Neutrophils % (auto) 62.2 %; Polychromasia 1+; Tear Drop Cells 1+
--- NOTE | 2024-05-08 08:36 | Urology Progress Note ---
Date of Service May 08, 2024 Assessment & Plan (1) Acute urinary retention: (2) Hematuria: Plan: Follow-up of urinary retention/gross hematuria Ongoing hematuria most likely related to radiation cystitis Patient remains afebrile Labs reviewedcreatinine 1.68, WBC 3.17, hemoglobin down to 6.8 (ordered for 1 unit PRBCs today, received 4 units so far this admission) Continue to trend labs and transfuse as necessary per hospital medicine Kan is patent and draining appropriately, urine is light collins red with CBI on slow Continues with continuous bladder irrigation, no manual irrigation was required overnight Okay to gently hand irrigate catheter as needed for obstruction On empiric antibiotics with CBI Maintain Kan catheter for now Patient is pending transfer to [facility] for nephrostomy tubes for urinary diversion Agree with plan for urinary diversion as he is not improving with conservative management and has ongoing blood loss anemia Continue supportive care and medical management per hospital medicine service will follow peripherally, please contact the service with any additional questions or concerns Admission and Anticipated Discharge Date Admission Date: May 03, 2024 Subjective Patient resting comfortably in bed No issues overnight Continues on continuous bladder irrigation No manual irrigation needed overnight Denies bladder discomfort or spasms at present He is pending transfer to [facility] Denies fever or chills Review of Systems Constitutional: as per Subjective / HPI Genitourinary: + as per Subjective / HPI Physical Exam Constitutional: no acute distress Respiratory: normal respiratory effort; no respiratory distress and no labored breathing Musculoskeletal: Head/Neck/Chest: normocephalic Neurologic: moves all extremities and awake Psychiatric: Orientation: alert and oriented x 3 Genitourinary: Kan draining light collins red with CBI on slow Results & Data Vital Signs (Past 12 Hours) Vital Signs Temp Pulse Pulse Resp BP Pulse Ox O2 Del Method 05/08/24 08:33 37.0 C 69 18 146/64 H 95 Room Air 05/08/24 07:30 67 05/08/24 02:18 36.6 C 69 16 151/62 H 96 Room Air 05/07/24 23:46 36.9 C 74 16 150/61 H 95 Room Air 05/07/24 22:23 Room Air 05/07/24 22:13 75 PG Care Time/CCT Total # of Minutes Spent Total Time Spent with Patient: Total time spent is greater than 50% in coordination of care (as documented) at patient's floor/unit and/or counseling patient: Coding Level of Care Code 39160 SUB INP/OBS CARE Diagnoses Acute urinary retention R33.8 Hematuria R31.0 Hematuria type: gross (2) Hematuria Hematuria type: gross Qualified Code(s): R31.0 - Gross hematuria
[2024-05-08 10:15] VITALS: O2SAT 92
[2024-05-08 12:25] VITALS: RESP 18
[2024-05-08 12:26] VITALS: BP 158/72; PULSE 72; TEMP 97.5
--- NOTE | 2024-05-08 13:17 | Discharge Summary ---
Date of Service May 08, 2024 Admission HPI Per Admitting Provider History obtained from patient and records. Limited history from patient secondary to lethargic state post Ativan administration at the ER. 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 Multiple admissions (almost monthly) since 2021. Last 3 admissions for hematuria. Recent confinement confinement April 20 to 2023 for hematuria attributed to radiation cystitis and Proteus status post antibiotic Rx UTI. Hemoglobin 7.8 at time of discharge last week. Urology recommended outpatient hyperbaric oxygen therapy. Patient with persistent hematuria/blood clots in the urine following discharge from the hospital. Denies abdominal/flank pain, black/bloody stools. Patient experienced sudden onset right foot pain last night. May have had it before from possible gout. No recollection of recent trauma. No fever, no chills. Patient called EMS to home because of severe pain. Patient later complained to EMS of sharp chest pain with shortness of breath. Patient brought to the ER for evaluation. IV Ativan administered due to patient agitation. Patient currently lethargic and unable to answer most questions. 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 Admission Exam Per Admitting Provider GENERAL: Lethargic, uncomfortable, no respiratory distress SKIN: Pallor, warm HEENT: Alopecia, pale palpebral conjunctivae, no ptosis, dry buccal mucosa NECK : Supple, no tenderness CHEST : Decreased breath sounds, no tenderness HEART : RRR, no obvious murmurs ABDOMEN: Some distention, nontender EXTREMITIES : Minimal LE swelling, no overt right foot tenderness NEUROLOGIC : Lethargic, no facial asymmetry, gait and stance not assessed Principal Diagnosis Hematuria secondary to radiation cystitis Discharge Exam General: elderly male, Lying comfortably in bed, not in distress, on room air HEENT: EOMI, JUAN ANTONIO, MMM Chest: Clear breath sounds bilaterally, no wheezes or crackles CVS: Regular rate and rhythm, normal heart sounds, no murmur Abdomen: Soft, non tender, distended, normal bowel sounds Neuro: Awake, alert, oriented, conversing well, non focal Extremities: trace edema Genitourinary: Kan with hematuria, CBI running Discharge Data Allergies Allergy/AdvReac Type Severity Reaction Status Date / Time No Known Allergies Allergy Mild Verified 05/03/24 09:17 Consultations 05/03/24 03:43 ED Decision to Admit Stat 05/03/24 05:27 Consult Urology Routine 05/05/24 12:46 Consult Nephrology Routine Hospital Course (1) Irradiation cystitis with hematuria: (2) Anemia requiring transfusions: (3) Acute kidney injury superimposed on chronic kidney disease: (4) Thrombocytopenia: (5) DM type 2 (diabetes mellitus, type 2): (6) 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 Found to have hemoglobin of 6.1 and LUCRETIA with creatinine 1.61 Radiation cystitis with hematuria Acute on chronic blood loss anemia History of prostate cancer s/p radiation complicated by radiation cystitis. Recurrent hospitalization due to radiation cystitis recently. Status post 2 units of packed RBC Hemoglobin on presentation of 6.1, status post 3 unit of transfusion. Went up to 9.1 on 05/05; downtrending to 6.8; one unit of packed rbc ordered Patient continues to have hematuria with clots requiring continuous bladder irrigation. He had multiple hospitalization due to the same issue in recent months. He has required multiple transfusions as well. His urologist, Dr. Frank Peraza suggested urinary diversion with bilateral percutaneous nephrostomy. Discussion was done with patient and patient's son at bedside. Both are agreeable. Discussed with transfer center; reviewed by urology and interventional radiology on-call. Patient accepted for transfer. Continue continuous bladder irrigation en-route. 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 Continue rifaximin LUCRETIA- Baseline creatinine 1.2. Creatinine up trended to 1.9 > today 1.68. No further recommendation by nephrology at this time. Diabetes mellitus type 2- On Lantus and Humalog. Insulin adjusted . Pancytopenia secondary cirrhosis of liver,- continue to monitor HCC- scheduled for IR embolization on 05/06 at [facility] which has been cancelled by family due to hospitalization Hyperuricemia, history of gout- continue allopurinol. X-ray foot with no evidence of acute bony injury. DVT prophylaxis- SCD, chemoprophylaxis contraindicated due to hematuria and anemia Disposition-Transfer to tertiary care center for IR guided pc nephrostomy tube. Please note the above document was generated using voice recognition software. It may contain grammatical, syntax or spelling errors. Any formal questions or concerns about the content, text or information contained within the body of this dictation should be directly addressed to the provider for clarification Total Time Total Time Spent Total Time Spent (In Minutes): 45 Total Time Includes: Examination of the Patient, Discharge Planning, Medication Reconciliation, Communication With Other Providers and Other Discharge Plan Discharge Items Patient Disposition: Transfer Acute Care Hospital Reason For Visit: SYMPTOMATIC ANEMIA Discharge Diagnosis: Radiation cystitis Acute blood loss anemia LUCRETIA Activity: Resume your previous activity Non-emergency contact: Primary Care Provider Call non-emergency contact if: you have any medication questions and your symptoms worsen Follow-up/Referrals: Francisco Cisse MD [Primary Care Provider] - Diet: Regular Addtl Attending Provider Instructions: Date of Service: May 07, 2024 Current Inpatient Medications Acetaminophen (Acetaminophen 500 Mg Tab) 500 mg PO Q6H PRN PRN Reason: fever/pain Stop: 06/02/24 04:38 Last Admin: 05/05/24 21:40 Dose: 500 mg Allopurinol (Allopurinol 100 Mg Tab) 100 mg PO QAM JODI Stop: 06/03/24 08:59 Last Admin: 05/07/24 09:01 Dose: 100 mg Dextrose (Dextrose 50% 50 Ml Syringe) 25 - 50 ml IV UD PRN; Protocol PRN Reason: Hypoglycemia Protocol Stop: 06/02/24 15:13 Duloxetine HCl (Duloxetine Hcl 30 Mg Cap) 30 mg PO QAM [facility] Stop: 06/03/24 08:59 Last Admin: 05/07/24 09:00 Dose: 30 mg Ferrous Sulfate (Ferrous Sulfate 325 Mg Tab) 650 mg PO QAM [facility] Stop: 06/03/24 08:59 Last Admin: 05/07/24 09:01 Dose: 650 mg Finasteride (Finasteride 5 Mg Tab) 5 mg PO QAM [facility] Stop: 06/03/24 08:59 Last Admin: 05/07/24 09:00 Dose: 5 mg Glucagon (Glucagon For Inj 1 Mg Vial) 1 mg SQ UD PRN; Protocol PRN Reason: Hypoglycemia Protocol Stop: 06/02/24 15:13 Glucose (Glucose 40% Gel 15 Gm Tube) 15 - 30 gm PO UD PRN; Protocol PRN Reason: Hypoglycemia Protocol Stop: 06/02/24 15:13 Glucose (Glucose 10 Tab/Tube) 4 - 8 tab PO UD PRN; Protocol PRN Reason: Hypoglycemia Treatment Stop: 06/02/24 15:13 Promethazine HCl 6.25 mg/ (Sodium Chloride) 50.25 mls @ 201 mls/hr IV Q6H PRN PRN Reason: Nausea And Vomiting Stop: 06/02/24 04:38 Last Infusion: 05/07/24 12:43 Dose: Infused Ceftriaxone Sodium (Rocephin) 2,000 mg in 50 mls @ 100 mls/hr IV Q24H [facility] Stop: 05/08/24 15:44 Last Infusion: 05/06/24 16:34 Dose: Infused Insulin Aspart (Insulin Aspart Per Unit Charge) 0 units SC ACHS [facility] Stop: 06/02/24 05:55 Last Admin: 05/07/24 13:15 Dose: 2 units Insulin Glargine (Lantus Per Unit Charge) 15 units SQ HS [facility] Stop: 06/04/24 20:59 Last Admin: 05/06/24 20:21 Dose: 15 units Lactulose (Lactulose Syrup 20 Gm/30 Ml Udc) 10 gm PO BID PRN PRN Reason: Constipation Stop: 06/02/24 15:16 Mirtazapine (Mirtazapine Tab 15 Mg Tab) 30 mg PO HS PRN PRN Reason: Sleep Stop: 06/02/24 15:16 Last Admin: 05/06/24 20:46 Dose: 30 mg Miscellaneous (Carbohydrates For Hypoglycemia ) 15 - 30 gm PO UD PRN PRN Reason: Hypoglycemia Protocol Stop: 06/02/24 15:13 Oxybutynin Chloride (Oxybutynin Chloride Xl 5 Mg Tabcr) 5 mg PO QAM JODI; Protocol Stop: 06/04/24 08:59 Last Admin: 05/07/24 09:00 Dose: 5 mg Oxycodone HCl (Oxycodone Hcl Ir 5 Mg Tab (Immediate Release)) 5 mg PO Q4H PRN PRN Reason: Pain Stop: 05/17/24 04:38 Last Admin: 05/06/24 08:09 Dose: 5 mg Pantoprazole Sodium (Pantoprazole 40 Mg Tab) 40 mg PO BID JODI Stop: 06/02/24 20:59 Last Admin: 05/07/24 09:02 Dose: 40 mg Rifaximin (Rifaximin 550 Mg Tablet) 550 mg PO AMHS JODI Stop: 06/02/24 20:59 Last Admin: 05/07/24 09:02 Dose: 550 mg Pending Studies at Discharge: No Stand-Alone Forms: My [facility] Skilled Items Patient informed of condition?: Yes DNR: No Discharge Level of Care: Other Communicable Disease: No Discharge Prognosis: Stable Lines: Peripheral IV Urinary Catheter: Yes Medications and DC Order Prescriptions: Continued zinc gluconate 50 mg tablet 50 mg PO DAILY potassium chloride 20 mEq tablet,ER particles/crystals 20 meq PO DAILY allopurinol 100 mg Tablet 100 mg PO QAM furosemide [Lasix] 20 mg Tablet 40 mg PO QAM ferrous sulfate [iron] 325 mg (65 mg iron) Tablet 650 mg PO QAM Men's 50 Plus Multivitamin 400-20-370 mcg Tablet 1 tab PO DAILY Rx Instructions: Unable to verify OTC meds with patient at this date/time. Probiotic 5 billion cell Capsule, Sprinkle 1 cap PO QAM finasteride 5 mg tablet 5 mg PO QAM insulin glargine [Lantus U-100 Insulin] 100 unit/mL solution 26 unit subcut QPM acetylcysteine 600 mg Capsule 600 mg PO DAILY pantoprazole 40 mg tablet,delayed release (DR/EC) 40 mg PO AMPM duloxetine 30 mg capsule,delayed release(DR/EC) 30 mg PO QAM Xifaxan 550 mg tablet 550 mg PO AMHS metoclopramide HCl 5 mg tablet 5 mg PO TID PRN (Reason: Nausea And Vomiting) mirtazapine 30 mg tablet 30 mg PO HS PRN (Reason: Sleep) acetaminophen 500 mg Tablet 1,000 mg PO BID MDD 2000mg/24hr PRN (Reason: Pain) lactulose [Kristalose] 10 gram packet 10 g PO BID PRN (Reason: .) Rx Instructions: hold for more than 3 more BMs solifenacin 5 mg tablet 5 mg PO QAM Discharge Orders: Discharge Order (Routine); Ordered 05/08/24 Ordered By: Marcus Sheppard Admission Data Admit Date/Time: 05/03/24 04:36 Attending Provider: Marcus Sheppard Admit Provider: Yordan Andersen Primary Care Provider: Francisco Cisse Other Providers: Yordan Andersen; Emeterio Philippe; Alex Blanco; Jose Ramon Rubi; Kristen Crowell; Pablo Ellis; Clara Chand; Ayaka Kim; Zane Salas; Vandana Rios; Rc Borja; Truman Unger; Raulito Rashid; Renetta Bravo
== END 2024-05-08 15:15 | disposition short-term general hospital (02) | DRG 699 ==
LOC: ED 02:20 → EDINP 04:36 → SUATTDRO 04:36 → 2W 05:55
DX: K74.60 Unspecified cirrhosis of liver; K75.81 Nonalcoholic steatohepatitis (NASH); E83.51 Hypocalcemia; C61 Malignant neoplasm of prostate; N17.9 Acute kidney failure, unspecified; J98.4 Other disorders of lung; I85.10 Secondary esophageal varices without bleeding; N40.0 Benign prostatic hyperplasia without lower urinary tract symptoms; I27.20 Pulmonary hypertension, unspecified; N11.9 Chronic tubulo-interstitial nephritis, unspecified; Z92.3 Personal history of irradiation; N30.41 Irradiation cystitis with hematuria; K31.819 Angiodysplasia of stomach and duodenum without bleeding; C22.0 Liver cell carcinoma; D61.818 Other pancytopenia; Z79.4 Long term (current) use of insulin; T83.091A Other mechanical complication of indwelling urethral catheter, initial encounter; Y92.230 Patient room in hospital as the place of occurrence of the external cause; M10.9 Gout, unspecified; E11.65 Type 2 diabetes mellitus with hyperglycemia; D62 Acute posthemorrhagic anemia; Y81.2 Prosthetic and other implants, materials and accessory general- and plastic-surgery devices associated with adverse incidents; K21.9 Gastro-esophageal reflux disease without esophagitis; N18.30 Chronic kidney disease, stage 3 unspecified

== ENCOUNTER 2024-05-20 03:49 | Inpatient (IN) ==
--- NOTE | 2024-05-20 03:56 | Emergency Department Note ---
Impression & Plan Abdominal pain, Abdominal ascites, Pancytopenia, Elevated brain natriuretic peptide (BNP) level ED Provider Note HISTORY OF PRESENT ILLNESS: Patient is a 73-year-old male presenting with abdominal pain and distention. Patient reports that starting last night he developed significant diffuse abdominal pain and reports his abdomen feels very swollen. He just had a paracentesis performed 3 days ago. He states he was initially doing well up until last night. He states that his lower extremities have also gotten very swollen. Denies any chest pain or shortness of breath. Reports nausea and episode of vomiting. Denies any diarrhea. Denies any fevers. ROS: as above PHYSICAL EXAM: Constitutional: Patient appears in no acute distress. HENT: Head: Normocephalic and atraumatic. Eyes: EOMI, PERRL Mouth/Throat: Mucous membranes moist. Neck: Trachea midline. Neck supple. Cardiovascular: Bradycardic. No murmurs, rubs or gallops. Intact distal pulses. Pulmonary/Chest: No respiratory distress. Breath sounds clear and equal bilaterally. No wheezes or rales. Abdominal: Abdomen soft, no rebound or guarding. Diffuse TTP. +Ascites wave Musculoskeletal: No tenderness or deformity noted. +2 pitting edema of bilateral lower extremities extending to proximal tibia Skin: Warm and dry. No rash, erythema, pallor or cyanosis Psychiatric: Appropriate mood and affect for situation. Neurological: Alert and keenly responsive. CN II-XII grossly intact, moving all extremities equally and fully. MDM: - Vitals signs showed hypertension - History obtained via patient. History as above. - Chronic conditions affecting care: pulmonary HTN; non-alcoholic cirrhosis (s/p TIPS and revision); hepatocellular carcinoma (s/p IR embolization); portal vein thrombus; insulin dependent DM-2; pancytopenia; GAVE/esophageal varices/portal hypertensive gastropathy; prostate cancer (s/p radiation) - Differential diagnoses include, but are not limited to: spontaneous bacterial peritonitis; CHF exacerbation; intra-abdominal bleed; ascites - Order placed for continuous cardiac monitoring. At this time, monitor showed rate of 62 bpm with normal sinus rhythm, per my interpretation. - External medical records reviewed. Discharge summary dated 05/08/2024 was reviewed. Patient was admitted that time for hematuria secondary to radiation cystitis. - EKG interpreted by myself showed normal sinus rhythm. Rate 58 bpm. QT 488. No acute ischemic changes. Significant artifact obscuring baseline. - Laboratory workup interpreted by myself showed chronic pancytopenia (WBC 3.31; Hgb 8.8; plt 93); stable electrolytes other than hypocalcemia (Ca 8.2); CKD; hyperglycemia (glucose 173); hyperbilirubinemia (total bili 2.0); elevated AST (44); elevated BNP (113); normal troponin; elevated lipase (136); normal lactate; normal ammonia - Patient given 1L NS, 4 mg IV zofran and 50 mcg IV fentanyl on arrival for symptoms. Given 2g IV rocephin for SBP coverage, given his abdominal pain and ascites. - On reassessment, patient still complaining of pain. Given an additional 50 mcg IV fentanyl. - CXR negative for pneumonia, per my interpretation - CT abdomen/pelvis wo contrast showed cirrhotic liver with splenomegaly and large ascites. Also noted to have focal hypodense lesion in pancreatic head. - Patient's abdominal pain likely secondary to his large volume ascites. Patient is scheduled for paracentesis on , but states he "can't wait that long." - Discussion was had with correctional casework specialist about patient's case and need for admission - Hospitalist consulted for admission - [facility] ASSESSMENT AND PLAN: Diagnosis: abdominal pain; abdominal ascites; pancytopenia; elevated BNP Plan: admit Past Med/Surg History Problem List (Updated 05/20/24 @ 05:34 by Ximena Lynn MD) Elevated brain natriuretic peptide (BNP) level (Acute) Pancytopenia (Acute) Abdominal ascites (Acute) Abdominal pain (Acute) Abdominal ascites (Acute) Hypocalcemia (Acute) Hyperglycemia (Acute) Elevated brain natriuretic peptide (BNP) level (Acute) Acute kidney injury superimposed on chronic kidney disease (Acute) Thrombocytopenia (Acute) Anemia requiring transfusions (Acute) Pancytopenia (Acute) Chest pain (Acute) LUCRETIA (acute kidney injury) Hematuria (Acute) Anemia (Acute) Acute urinary retention (Acute) DM type 2 (diabetes mellitus, type 2) Irradiation cystitis with hematuria UTI (urinary tract infection) (Acute) Anemia (Acute) 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 (Acute) Closed T12 spinal fracture (Acute) Prostate cancer (Acute) Hx radiation CKD (chronic kidney disease) stage 3, GFR 30-59 ml/min (Acute) Insulin dependent type 2 diabetes mellitus Medical History Thrombocytopenia DM type 2 (diabetes mellitus, type 2) Hx of malignant neoplasm of prostate History of blood transfusion 11/2022 Hepatocellular carcinoma Spinal fracture of T12 vertebra History of recent hospitalization 06/2023 [facility], [place] hepatic encephalopathy Liver spots Under surveillance, stable per patient Anxiety and depression 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 Anemia of chronic disease under surveillance History of panic attacks Gout No current issues GERD (gastroesophageal reflux disease) GAVE (gastric antral vascular ectasia) Hypertension Hx Esophageal varices EGD 05/22/23 ([facility], [place]): Grade 1 varices in distal esophagus without high risk stigmata Upper GI bleed Hx Psoriasis Surgical History History of left cataract surgery History of right cataract surgery History of prostate biopsy malignant S/P TIPS (transjugular intrahepatic portosystemic shunt) History of esophagogastroduodenoscopy (EGD) Most recent 05/2023 [facility], [place] History of colonoscopy with polypectomy History of tonsillectomy and adenoidectomy History of abdominal paracentesis Multiple, most recent 01/2023 Family History Father , "3/4 liver gone due to drinking" Colorectal cancer, Onset Age: 63 Mother Lung cancer Daughter Cancer cervical and thyroid cancers Ovarian cancer Other No family history of adverse response to anesthesia 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 Smoking Status: Former smoker Second Hand Exposure: No; Do You Dip or Chew Tobacco: No; Hx Alcohol Use: No Hx Substance Use: No Preferred Language: Haitian Communication Ability: Effective Visual Impairment: No Limitations Hearing Ability: Normal 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: No Beliefs That Will Affect Care: None marital status: Current Living Situation: Spouse Current Living Situation Comment: 1 level single family home 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 How many Children do You have: 6 How many Children do You have Comment: one , eldest daughter in her sleep from seizure disorder Feels Safe at Home: Yes Childhood Exposure to Second-Hand Smoke: Yes Diet Comment: "I watch my sugar, average fasting is 140 mg/dl" caffeine: Yes (cola, sugar free, decaf) during the past year weight has: remained stable Dental Care, Regularly: No Physical Activity Frequency: Does not Exercise Seatbelt Use: always Sunscreen Use: Yes Assistive Devices: Glasses, Oxygen - at Night and Walker Allergies Allergies Allergy/AdvReac Type Severity Reaction Status Date / Time No Known Allergies Allergy Mild Verified 05/15/24 14:57 Home Meds Home Medications Medication Instructions Recorded Confirmed allopurinol 100 mg tablet 100 mg PO QAM 05/16/20 05/15/24 Lactobacil.acidophilus-Bifido.animalis 1 cap PO QAM 05/17/23 05/15/24 5 billion cell sprinkle capsule (Probiotic) ferrous sulfate 325 mg (65 mg 650 mg PO QAM 05/17/23 05/15/24 iron) tablet (iron) mdhzhgsnqish-sgs-zxdyg acid-vit 1 tab PO DAILY 05/17/23 05/15/24 K-lycop 400 mcg-20 mcg-370 mcg tablet (Men's 50 Plus Multivitamin) duloxetine 30 mg capsule,delayed 30 mg PO QAM 02/02/24 05/15/24 release pantoprazole 40 mg tablet,delayed 40 mg PO AMPM 02/02/24 05/15/24 release rifaximin 550 mg tablet (Xifaxan) 550 mg PO AMHS 02/02/24 05/15/24 metoclopramide HCl 5 mg tablet 5 mg PO TID PRN Nausea And Vomiting 02/20/24 05/15/24 acetaminophen 500 mg tablet 1,000 mg PO BID PRN Pain 03/19/24 05/15/24 finasteride 5 mg tablet 5 mg PO QAM 03/20/24 05/15/24 insulin glargine 100 unit/mL 26 unit subcut QPM 03/20/24 05/15/24 subcutaneous solution (Lantus U-100 Insulin) lactulose 10 gram oral packet 10 g PO BID PRN . 03/20/24 05/15/24 (Kristalose) mirtazapine 30 mg tablet 30 mg PO HS PRN Sleep 03/20/24 05/15/24 potassium chloride 20 mEq 20 meq PO DAILY 03/20/24 05/15/24 tablet,extended release(part/cryst) zinc gluconate 50 mg tablet 50 mg PO DAILY 03/20/24 05/15/24 solifenacin 5 mg tablet 5 mg PO QAM 04/20/24 05/15/24 acetylcysteine 600 mg capsule 600 mg PO DAILY 05/03/24 05/15/24 Results & Data (ED) Vital Signs Vital Signs - 24 hr 05/20/24 03:39 05/20/24 03:50 05/20/24 03:50 Temperature 36.7 C Temperature Source Oral Pulse Rate 60 Pulse Rate from SpO2 Sensor Respiratory Rate 25 H Respiratory Effort / Characteristics Non-Labored Non-Labored Respiratory Depth Normal Normal Blood Pressure 141/69 H Blood Pressure Mean 93 Pulse Oximetry 100 100 Oxygen Delivery Method Room Air Room Air Sepsis Recent Fever Within 48 Hours No Sepsis New/Unexplained Change in Mental Status No Sepsis Action Taken by Nursing No Action Required 05/20/24 03:56 05/20/24 04:00 05/20/24 04:15 Temperature Temperature Source Pulse Rate 59 L 58 L 55 L Pulse Rate from SpO2 Sensor Respiratory Rate 26 H 27 H Respiratory Effort / Characteristics Respiratory Depth Blood Pressure Blood Pressure Mean Pulse Oximetry 97 Oxygen Delivery Method Sepsis Recent Fever Within 48 Hours Sepsis New/Unexplained Change in Mental Status Sepsis Action Taken by Nursing 05/20/24 04:18 05/20/24 04:21 05/20/24 04:27 Temperature Temperature Source Pulse Rate 53 L 55 L Pulse Rate from SpO2 Sensor Respiratory Rate 26 H 24 Respiratory Effort / Characteristics Respiratory Depth Blood Pressure 151/63 H Blood Pressure Mean 107 Pulse Oximetry Oxygen Delivery Method Sepsis Recent Fever Within 48 Hours Sepsis New/Unexplained Change in Mental Status Sepsis Action Taken by Nursing 05/20/24 04:30 05/20/24 04:30 05/20/24 05:00 Temperature Temperature Source Pulse Rate 57 L Pulse Rate from SpO2 Sensor Respiratory Rate 22 Respiratory Effort / Characteristics Respiratory Depth Blood Pressure 154/68 H 141/64 H Blood Pressure Mean 116 101 Pulse Oximetry Oxygen Delivery Method Sepsis Recent Fever Within 48 Hours Sepsis New/Unexplained Change in Mental Status Sepsis Action Taken by Nursing 05/20/24 05:00 Temperature Temperature Source Pulse Rate 58 L Pulse Rate from SpO2 Sensor 57 L Respiratory Rate 16 Respiratory Effort / Characteristics Respiratory Depth Blood Pressure Blood Pressure Mean Pulse Oximetry 94 Oxygen Delivery Method Sepsis Recent Fever Within 48 Hours Sepsis New/Unexplained Change in Mental Status Sepsis Action Taken by Nursing Laboratory Data 05/20/24 03:59 05/20/24 03:59 Lab Results 05/20/24 Range/Units 03:59 WBC 3.31 L (4.8-10.8) K/ul RBC 2.75 L (4.70-6.10) M/uL Hgb 8.8 L (14.0-18.0) g/dl Hct 27.2 L (42.0-52.0) % MCV 98.9 (80.0-100.0) fL MCH 32.0 (25.0-34.0) pg MCHC 32.4 (32.0-36.0) g/dL RDW Std Deviation 69.5 H (36.4-46.3) fL RDW Coeff of [place] 19.5 H (11.5-14.5) % Plt Count 93 L (130-400) K/uL MPV 12.1 (9.4-12.4) fL Immature Gran % (Auto) 0.3 % Neut % (Auto) 64.1 % Lymph % (Auto) 20.8 % [place] % (Auto) 5.7 % Eos % (Auto) 8.5 % Baso % (Auto) 0.6 % Neut # (Auto) 2.12 (1.40-6.50) K/uL Lymph # (Auto) 0.69 L (1.20-3.40) K/uL [place] # (Auto) 0.19 (0.11-0.59) K/uL Eos # (Auto) 0.28 (0.00-0.50) K/uL Baso # (Auto) 0.02 (0.00-0.20) K/uL Immature Gran # (Auto) 0.01 (0.01-0.20) K/uL PT 12.1 H (9.0-12.0) Seconds INR 1.1 (0.9-1.1) Sodium 139 (136-145) mmol/L Potassium 3.6 (3.5-5.1) mmol/L Chloride 111 H (98-107) mmol/L Carbon Dioxide 22 (21-32) mmol/L Anion Gap 6 (3-11) BUN 35 H (6-23) mg/dl Creatinine 1.45 H (0.6-1.4) mg/dl Est Cr Clr Drug Dosing Not Reportable Est GFR ( Amer) 55.0 ml/min Est GFR (Non-Af Amer) 47.4 ml/min BUN/Creatinine Ratio 24.1 H (10-20) Glucose 173 H (70-99(Fasting)) mg/dl Lactate 1.9 (0.4-2.0) mmol/L Calcium 8.2 L (8.6-10.3) mg/dl Total Bilirubin 2.0 H (0.2-1.0) mg/dl AST 44 H (13-39) U/L ALT 24 (7-52) U/L Alkaline Phosphatase 215 H (34-104) U/L Ammonia 60.0 (18-72) umol/L Troponin I High Sens 10.4 (0-20) pg/ml B-Natriuretic Peptide 113 H (0-100) pg/ml Total Protein 5.5 L (6.0-8.3) gm/dl Albumin 2.4 L (3.4-5.0) gm/dl Globulin 3.1 (2.5-4.0) gm/dl Albumin/Globulin Ratio 0.8 L (0.9-2) Lipase 136 H (11-82) U/L Administered Medications Discontinued Medications Fentanyl Citrate (Fentanyl Citrate Pf 100 Mcg/2 Ml Vial) 50 mcg IV NOW STA Stop: 05/20/24 04:04 Last Admin: 05/20/24 04:16 Dose: 50 mcg Documented By: MARGI Ceftriaxone Sodium (Rocephin) 2,000 mg in 50 mls @ 100 mls/hr IV NOW STA Stop: 05/20/24 04:26 Last Infusion: 05/20/24 04:50 Dose: Infused Documented By: Admin: 05/20/24 04:17 Dose: 100 mls/hr Documented By: MARGI Sodium Chloride (Nss) 1,000 mls @ 999 mls/hr IV .Q1H1M ONE Stop: 05/20/24 05:03 Last Admin: 05/20/24 04:12 Dose: 999 mls/hr Documented By: MARGI Ondansetron HCl (Ondansetron Inj 2 Mg/Ml 2 Ml Vial) 4 mg IV NOW STA Stop: 05/20/24 04:04 Last Admin: 05/20/24 04:14 Dose: 4 mg Documented By: MARGI Imaging Data Radiologist's Impression: Abdomen/Pelvis CT 05/20/24 03:56 Exam(s): CT ABDOMEN + PELVIS Without Contrast EXAM: CT Abdomen and Pelvis Without Intravenous Contrast CLINICAL HISTORY: Reason for exam: abdominal pain; ascites. TECHNIQUE: Axial computed tomography images of the abdomen and pelvis without intravenous contrast. CTDI is 25.18 mGy and DLP is 1286.53 mGy-cm. Automated exposure control was utilized for the study. A dose lowering technique was utilized adhering to the principles of ALARA. COMPARISON: 04/23/24 FINDINGS: Lung bases: Unremarkable. No mass. No consolidation. Heart: Moderate coronary vascular calcifications are seen. ABDOMEN: Liver: There is lobulated of the liver outline, consistent with cirrhosis. Gallbladder and bile ducts: Gallbladder is contracted and is filled with multiple gallstones. No ductal dilation. Pancreas: 2.5 cm hypodensity seen in the pancreatic head with adjacent punctate rim calcifications. No ductal dilation. Spleen: Moderate splenomegaly. Adrenals: Unremarkable. No mass. Kidneys and ureters: Unremarkable. No obstructing stones. No hydronephrosis. Stomach and bowel: Unremarkable. No obstruction. No mucosal thickening. PELVIS: Appendix: No findings to suggest acute appendicitis. Bladder: Unremarkable. No stones. Reproductive: Unremarkable as visualized. ABDOMEN and PELVIS: Intraperitoneal space: Large ascites. No free air. Bones/joints: No acute fracture. No dislocation. Soft tissues: There is subcutaneous tissue edema seen in the abdominal wall. Lymph nodes: Unremarkable. No enlarged lymph nodes. IMPRESSION: 1. Cirrhotic liver with splenomegaly and large ascites 2. Focal hypodense lesion in the pancreatic head which can be further assessed on MRI study Electronically signed by: Ronnie Herrera MD 05/20/24 05:27 AM Discharge Plan Visit Data Chief Complaint: Abdominal Pain Stated Complaint: ABDOMINAL DISTENTION, SOB, LIVER FAILURE ED Provider: Ximena Lynn Discharge Problem: Abdominal pain, Abdominal ascites, Pancytopenia, Elevated brain natriuretic peptide (BNP) level Forms Stand Alone Forms: My [employer] Prescriptions Prescriptions: No Action zinc gluconate 50 mg tablet 50 mg PO DAILY potassium chloride 20 mEq tablet,ER particles/crystals 20 meq PO DAILY allopurinol 100 mg Tablet 100 mg PO QAM ferrous sulfate [iron] 325 mg (65 mg iron) Tablet 650 mg PO QAM Men's 50 Plus Multivitamin 400-20-370 mcg Tablet 1 tab PO DAILY Rx Instructions: Unable to verify OTC meds with patient at this date/time. Probiotic 5 billion cell Capsule, Sprinkle 1 cap PO QAM finasteride 5 mg tablet 5 mg PO QAM insulin glargine [Lantus U-100 Insulin] 100 unit/mL solution 26 unit subcut QPM acetylcysteine 600 mg Capsule 600 mg PO DAILY pantoprazole 40 mg tablet,delayed release (DR/EC) 40 mg PO AMPM duloxetine 30 mg capsule,delayed release(DR/EC) 30 mg PO QAM Xifaxan 550 mg tablet 550 mg PO AMHS metoclopramide HCl 5 mg tablet 5 mg PO TID PRN (Reason: Nausea And Vomiting) mirtazapine 30 mg tablet 30 mg PO HS PRN (Reason: Sleep) acetaminophen 500 mg Tablet 1,000 mg PO BID MDD 2000mg/24hr PRN (Reason: Pain) lactulose [Kristalose] 10 gram packet 10 g PO BID PRN (Reason: .) Rx Instructions: hold for more than 3 more BMs solifenacin 5 mg tablet 5 mg PO QAM Referrals Referrals: PCP,NO [Physician] -
[2024-05-20] MEDS: SODIUM CHLORIDE 0.9% 1,000 ML IV ONE (04:12)
[2024-05-20] MEDS: ONDANSETRON INJ 2 MG/ML 2 ML VIAL IV STA (04:14)
[2024-05-20] MEDS: fentaNYL citrate PF 100 MCG/2 ML VIAL IV STA ×2 (04:16→05:38)
[2024-05-20] MEDS: cefTRIAXone SODIUM 2,000 MG/50 ML BAG IV STA (04:17)
[2024-05-20 04:21] LABS: Basophils # (auto) 0.02 K/uL (0.00-0.20); Basophils % (auto) 0.6 %; Eosinophils # (auto) 0.28 K/uL (0.00-0.50); Eosinophils % (auto) 8.5 %; Hematocrit (blood only) 27.2 % (42.0-52.0); Hemoglobin 8.8 g/dl (14.0-18.0); Immature Granulocytes # (auto) 0.01 K/uL (0.01-0.20); Immature Granulocytes % (auto) 0.3 %; Lymphocytes # (auto) 0.69 K/uL (1.20-3.40); Lymphocytes % (auto) 20.8 %; Mean Corpuscular Hgb Conc 32.4 g/dL (32.0-36.0); Mean Corpuscular Volume 98.9 fL (80.0-100.0); Mean Platelet Volume 12.1 fL (9.4-12.4); Monocytes # (auto) 0.19 K/uL (0.11-0.59); Monocytes % (auto) 5.7 %; Neutrophils # (auto) 2.12 K/uL (1.40-6.50); Neutrophils % (auto) 64.1 %; Platelet Count 93 K/uL (130-400); RDW Coefficient of Variation 19.5 % (11.5-14.5); RDW Standard Deviation 69.5 fL (36.4-46.3); Red Blood Count 2.75 M/uL (4.70-6.10); White Blood Count 3.31 K/ul (4.8-10.8)
[2024-05-20 04:36] LABS: Alanine Aminotransferase 24 U/L (7-52); Albumin Globulin Ratio 0.8 (0.9-2); Albumin Level 2.4 gm/dl (3.4-5.0); Alkaline Phosphatase 215 U/L (34-104); Anion Gap 6 (3-11); Aspartate Aminotransferase 44 U/L (13-39); BUN Creatinine Ratio 24.1 (10-20); Blood Urea Nitrogen 35 mg/dl (6-23); Calcium 8.2 mg/dl (8.6-10.3); Carbon Dioxide 22 mmol/L (21-32); Chloride 111 mmol/L (98-107); Est GFR (Non-African American) 47.4 ml/min; Globulin 3.1 gm/dl (2.5-4.0); Glucose 173 mg/dl (70-99(Fasting)); Lipase 136 U/L (11-82); Potassium 3.6 mmol/L (3.5-5.1); Sodium 139 mmol/L (136-145); Total Protein 5.5 gm/dl (6.0-8.3)
[2024-05-20 04:41] LABS: Troponin I High Sensitivity 10.4 pg/ml (0-20)
[2024-05-20 05:18] LABS: INR 1.1 (0.9-1.1); Prothrombin Time 12.1 Seconds (9.0-12.0)
--- NOTE | 2024-05-20 05:28 | CT Scan Report ---
Exam(s): CT ABDOMEN + PELVIS Without Contrast EXAM: CT Abdomen and Pelvis Without Intravenous Contrast CLINICAL HISTORY: Reason for exam: abdominal pain; ascites. TECHNIQUE: Axial computed tomography images of the abdomen and pelvis without intravenous contrast. CTDI is 25.18 mGy and DLP is 1286.53 mGy-cm. Automated exposure control was utilized for the study. A dose lowering technique was utilized adhering to the principles of ALARA. COMPARISON: 04/23/24 FINDINGS: Lung bases: Unremarkable. No mass. No consolidation. Heart: Moderate coronary vascular calcifications are seen. ABDOMEN: Liver: There is lobulated of the liver outline, consistent with cirrhosis. Gallbladder and bile ducts: Gallbladder is contracted and is filled with multiple gallstones. No ductal dilation. Pancreas: 2.5 cm hypodensity seen in the pancreatic head with adjacent punctate rim calcifications. No ductal dilation. Spleen: Moderate splenomegaly. Adrenals: Unremarkable. No mass. Kidneys and ureters: Unremarkable. No obstructing stones. No hydronephrosis. Stomach and bowel: Unremarkable. No obstruction. No mucosal thickening. PELVIS: Appendix: No findings to suggest acute appendicitis. Bladder: Unremarkable. No stones. Reproductive: Unremarkable as visualized. ABDOMEN and PELVIS: Intraperitoneal space: Large ascites. No free air. Bones/joints: No acute fracture. No dislocation. Soft tissues: There is subcutaneous tissue edema seen in the abdominal wall. Lymph nodes: Unremarkable. No enlarged lymph nodes. IMPRESSION: 1. Cirrhotic liver with splenomegaly and large ascites 2. Focal hypodense lesion in the pancreatic head which can be further assessed on MRI study Electronically signed by: Ronnie Herrera MD 05/20/24 05:27 AM
[2024-05-20 05:49] LABS: Appearance Urine Turbid (Clear); Bacteria Urine Automated None Seen (None Seen); Bilirubin Urine 1+ (Negative); Blood Urine 3+ (Negative); Color Urine Orange; Epithelial Cell Urine Auto 0-2 /hpf (0-2); Glucose Urine UA Negative (Negative); Ketones Urine Negative (Negative); Leukocyte Esterase Urine 2+ (Negative); Nitrite Urine Negative (Negative); Protein Urine 3+ (Negative); RBC Urine Automated >20 /hpf (0-2); Specific Gravity Urine 1.022 (1.000-1.030); Urobilinogen Urine Negative (Negative); WBC Urine Automated >50 /hpf (0-5); pH Urine 5.5 (4.5-7.5)
[2024-05-20 06:04] LABS: Magnesium 1.6 mg/dl (1.7-2.4)
--- NOTE | 2024-05-20 06:25 | History & Physical Report ---
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 BPH/prostate cancer status post radiation CRI, creatinine at baseline GMF Ceftriaxone for possible SBP Lasix albumin 1 dose now Ultrasound-guided diagnostic and therapeutic paracenteses GI consult re: recurrent ascites, recommendations for home diuretic Rx on discharge Basal bolus insulin, ISS BG goal 1 10-1 40, carb count coverage DVT prophylaxis. SCDs Re: Thrombocytopenia/hematuria Full code Patient's son requesting updates from providers. Mr. Alex Hale, contact # [phone]. Text document was generated using [employer] voice recognition software. It may contain grammatical or spelling errors. Kindly contact undersigned for clarification of any documentation item in question. History of Present Illness Chief Complaint: Worsening abdominal distention/pain Primary Care Provider: Kristen Vences DO History obtained from patient and records. Limited history from patient secondary to lethargic state post Ativan administration at the ER. 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 Multiple admissions (almost monthly) since 2021. Recent [facility] confinement 05/03-05/08 for hematuria secondary to radiation cystitis. Patient transferred to [facility] for further evaluation. Subsequent confinement 05/08-05/12. Continued CBI later followed by cystourethroscopy with clot evacuation and fulguration. Patient home Lasix held on discharge because of kidneys as per patient. Patient noted increased fluid retention/abdominal distention without pain following discharge from [facility]. Patient consulted ER 5 days ago. Patient noted to have ascites and abdominal exam. Subsequent IR guided ultrasound-guided paracentesis resulting in removal of 5 L of acetic fluid. Patient discharged home from the ER. Patient noted gradual increasing abdominal distention 2 days ago. Achy abdominal pain since last night. No fever, no chills. No unusual chest pain, no SOB. Patient consulted ER for evaluation. IV ceftriaxone administered at the ER. 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 Allergies Allergy/AdvReac Type Severity Reaction Status Date / Time No Known Allergies Allergy Mild Verified 05/15/24 14:57 Home Medications Medication Instructions Recorded Confirmed Type allopurinol 100 mg tablet 200 mg PO QAM 05/16/20 05/20/24 History Lactobacil.acidophilus-Bifido.animalis 1 cap PO QAM 05/17/23 05/20/24 History 5 billion cell sprinkle capsule (Probiotic) ferrous sulfate 325 mg (65 mg 650 mg PO QAM 05/17/23 05/20/24 History iron) tablet (iron) qtpoijgstqre-eni-gfxsh acid-vit 1 tab PO DAILY 05/17/23 05/20/24 History K-lycop 400 mcg-20 mcg-370 mcg tablet (Men's 50 Plus Multivitamin) duloxetine 30 mg capsule,delayed 30 mg PO QAM 02/02/24 05/20/24 History release pantoprazole 40 mg tablet,delayed 40 mg PO AMPM 02/02/24 05/20/24 History release rifaximin 550 mg tablet (Xifaxan) 550 mg PO AMHS 02/02/24 05/15/24 History metoclopramide HCl 5 mg tablet 5 mg PO TID PRN Nausea And Vomiting 02/20/24 05/20/24 History acetaminophen 500 mg tablet 1,000 mg PO BID PRN Pain 03/19/24 05/20/24 History finasteride 5 mg tablet 5 mg PO QAM 03/20/24 05/20/24 History lactulose 10 gram oral packet 10 g PO BID PRN . 03/20/24 05/20/24 History (Kristalose) mirtazapine 30 mg tablet 30 mg PO HS 03/20/24 05/20/24 History potassium chloride 20 mEq 20 meq PO DAILY 03/20/24 05/20/24 History tablet,extended release(part/cryst) acetylcysteine 600 mg capsule 600 mg PO DAILY 05/03/24 05/20/24 History albumin, human 25 % See Rx Instructions .Route .COMPLEX 05/20/24 05/20/24 History cholestyramine (with sugar) 4 gram 1 ea PO BID 05/20/24 05/20/24 History powder for susp in a packet insulin glargine 100 unit/mL (3 unit subcut 05/20/24 History mL) subcutaneous pen (Lantus Solostar U-100 Insulin) magnesium chloride 64 mg 64 mg PO DAILY 05/20/24 05/20/24 History (magnesium chloride) tablet,delayed release (Mag 64) oxybutynin chloride 5 mg tablet 5 mg TID PRN Bladder Spasms 05/20/24 05/20/24 History solifenacin 5 mg tablet 5 mg PO DAILY 05/20/24 05/20/24 History triamcinolone acetonide 0.1 % applic topical 05/20/24 History topical cream zinc 50 mg PO DAILY 05/20/24 05/20/24 History Past Med/Surg History Problem List (Updated 05/20/24 @ 05:34 by Ximena Lynn MD) Elevated brain natriuretic peptide (BNP) level (Acute) Pancytopenia (Acute) Abdominal ascites (Acute) Abdominal pain (Acute) Abdominal ascites (Acute) Hypocalcemia (Acute) Hyperglycemia (Acute) Elevated brain natriuretic peptide (BNP) level (Acute) Acute kidney injury superimposed on chronic kidney disease (Acute) Thrombocytopenia (Acute) Anemia requiring transfusions (Acute) Pancytopenia (Acute) Chest pain (Acute) LUCRETIA (acute kidney injury) Hematuria (Acute) Anemia (Acute) Acute urinary retention (Acute) DM type 2 (diabetes mellitus, type 2) Irradiation cystitis with hematuria UTI (urinary tract infection) (Acute) Anemia (Acute) 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 (Acute) Closed T12 spinal fracture (Acute) Prostate cancer (Acute) Hx radiation CKD (chronic kidney disease) stage 3, GFR 30-59 ml/min (Acute) Insulin dependent type 2 diabetes mellitus Medical History Thrombocytopenia DM type 2 (diabetes mellitus, type 2) Hx of malignant neoplasm of prostate History of blood transfusion 11/2022 Hepatocellular carcinoma Spinal fracture of T12 vertebra History of recent hospitalization 06/2023 [facility] hepatic encephalopathy Liver spots Under surveillance, stable per patient Anxiety and depression 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 Anemia of chronic disease under surveillance History of panic attacks Gout No current issues GERD (gastroesophageal reflux disease) GAVE (gastric antral vascular ectasia) Hypertension Hx Esophageal varices EGD 05/22/23 ([facility]): Grade 1 varices in distal esophagus without high risk stigmata Upper GI bleed Hx Psoriasis Surgical History History of left cataract surgery History of right cataract surgery History of prostate biopsy malignant S/P TIPS (transjugular intrahepatic portosystemic shunt) History of esophagogastroduodenoscopy (EGD) Most recent 05/2023 [facility] History of colonoscopy with polypectomy History of tonsillectomy and adenoidectomy History of abdominal paracentesis Multiple, most recent 01/2023 Family History Father , "3/4 liver gone due to drinking" Colorectal cancer, Onset Age: 63 Mother Lung cancer Daughter Cancer cervical and thyroid cancers Ovarian cancer Other No family history of adverse response to anesthesia 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 Smoking Status: Former smoker Second Hand Exposure: No; Do You Dip or Chew Tobacco: No; Hx Alcohol Use: No Hx Substance Use: No Preferred Language: Polish Communication Ability: Effective Visual Impairment: No Limitations Hearing Ability: Normal 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 Required: No Beliefs That Will Affect Care: None marital status: Current Living Situation: Spouse Current Living Situation Comment: 1 level single family home 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 How many Children do You have: 6 How many Children do You have Comment: one , eldest daughter in her sleep from seizure disorder Other Information That Helps Us Care for You: No Feels Safe at Home: Yes Safety Concerns: Feels Safe At This Time Childhood Exposure to Second-Hand Smoke: Yes Diet Comment: "I watch my sugar, average fasting is 140 mg/dl" caffeine: Yes (cola, sugar free, decaf) during the past year weight has: remained stable Dental Care, Regularly: No Physical Activity Frequency: Does not Exercise Seatbelt Use: always Sunscreen Use: Yes Assistive Devices: Glasses and Oxygen - at Night Review of Systems Review of Systems: As per HPI, all other systems reviewed and negative Physical Exam Physical Exam: GENERAL: uncomfortable, no respiratory distress SKIN: Pallor, warm HEENT: Alopecia, pale palpebral conjunctivae, no ptosis, dry buccal mucosa NECK : Supple, no tenderness CHEST : Decreased breath sounds, no tenderness HEART : RRR, no obvious murmurs ABDOMEN: Marked abdominal distention, fluid wave, generalized abdominal tenderness EXTREMITIES : Minimal LE swelling, no overt right foot tenderness NEUROLOGIC : Coherent, no facial asymmetry, gait and stance not assessed Results & Data Results & Data Vital Signs (Past 12 Hours) Vital Signs Temp Pulse Resp BP Pulse Ox O2 Del Method 05/20/24 05:00 58 L 16 94 05/20/24 05:00 141/64 H 05/20/24 04:30 154/68 H 05/20/24 04:30 57 L 22 05/20/24 04:27 55 L 24 05/20/24 04:21 151/63 H 05/20/24 04:18 53 L 26 H 05/20/24 04:15 55 L 27 H 05/20/24 04:00 58 L 26 H 97 05/20/24 03:56 59 L 05/20/24 03:50 100 Room Air 05/20/24 03:50 36.7 C 60 25 H 141/69 H 100 Room Air Laboratory Results Laboratory Results WBC 3.31 K/ul (4.8-10.8) L 05/20/24 03:59 RBC 2.75 M/uL (4.70-6.10) L 05/20/24 03:59 Hgb 8.8 g/dl (14.0-18.0) L 05/20/24 03:59 Hct 27.2 % (42.0-52.0) L 05/20/24 03:59 MCV 98.9 fL (80.0-100.0) 05/20/24 03:59 MCH 32.0 pg (25.0-34.0) 05/20/24 03:59 MCHC 32.4 g/dL (32.0-36.0) 05/20/24 03:59 RDW Std Deviation 69.5 fL (36.4-46.3) H 05/20/24 03:59 RDW Coeff of [place] 19.5 % (11.5-14.5) H 05/20/24 03:59 Plt Count 93 K/uL (130-400) L 05/20/24 03:59 MPV 12.1 fL (9.4-12.4) 05/20/24 03:59 Immature Gran % (Auto) 0.3 % 05/20/24 03:59 Neut % (Auto) 64.1 % 05/20/24 03:59 Lymph % (Auto) 20.8 % 05/20/24 03:59 [place] % (Auto) 5.7 % 05/20/24 03:59 Eos % (Auto) 8.5 % 05/20/24 03:59 Baso % (Auto) 0.6 % 05/20/24 03:59 Neut # (Auto) 2.12 K/uL (1.40-6.50) 05/20/24 03:59 Lymph # (Auto) 0.69 K/uL (1.20-3.40) L 05/20/24 03:59 [place] # (Auto) 0.19 K/uL (0.11-0.59) 05/20/24 03:59 Eos # (Auto) 0.28 K/uL (0.00-0.50) 05/20/24 03:59 Baso # (Auto) 0.02 K/uL (0.00-0.20) 05/20/24 03:59 Immature Gran # (Auto) 0.01 K/uL (0.01-0.20) 05/20/24 03:59 PT 12.1 Seconds (9.0-12.0) H 05/20/24 03:59 INR 1.1 (0.9-1.1) 05/20/24 03:59 Sodium 139 mmol/L (136-145) 05/20/24 03:59 Potassium 3.6 mmol/L (3.5-5.1) 05/20/24 03:59 Chloride 111 mmol/L (98-107) H 05/20/24 03:59 Carbon Dioxide 22 mmol/L (21-32) 05/20/24 03:59 Anion Gap 6 (3-11) 05/20/24 03:59 BUN 35 mg/dl (6-23) H 05/20/24 03:59 Creatinine 1.45 mg/dl (0.6-1.4) H 05/20/24 03:59 Est Cr Clr Drug Dosing Not Reportable 05/20/24 03:59 Est GFR ( Amer) 55.0 ml/min 05/20/24 03:59 Est GFR (Non-Af Amer) 47.4 ml/min 05/20/24 03:59 BUN/Creatinine Ratio 24.1 (10-20) H 05/20/24 03:59 Glucose 173 mg/dl (70-99(Fasting)) H 05/20/24 03:59 Lactate 1.9 mmol/L (0.4-2.0) 05/20/24 03:59 Calcium 8.2 mg/dl (8.6-10.3) L 05/20/24 03:59 Magnesium 1.6 mg/dl (1.7-2.4) L 05/20/24 03:59 Total Bilirubin 2.0 mg/dl (0.2-1.0) H 05/20/24 03:59 AST 44 U/L (13-39) H 05/20/24 03:59 ALT 24 U/L (7-52) 05/20/24 03:59 Alkaline Phosphatase 215 U/L (34-104) H 05/20/24 03:59 Ammonia 60.0 umol/L (18-72) 05/20/24 03:59 Troponin I High Sens 10.4 pg/ml (0-20) 05/20/24 03:59 B-Natriuretic Peptide 113 pg/ml (0-100) H 05/20/24 03:59 Total Protein 5.5 gm/dl (6.0-8.3) L 05/20/24 03:59 Albumin 2.4 gm/dl (3.4-5.0) L 05/20/24 03:59 Globulin 3.1 gm/dl (2.5-4.0) 05/20/24 03:59 Albumin/Globulin Ratio 0.8 (0.9-2) L 05/20/24 03:59 Lipase 136 U/L (11-82) H 05/20/24 03:59 Urine Color [place] 05/20/24 05:29 Urine Appearance Turbid (Clear) A 05/20/24 05:29 Urine pH 5.5 (4.5-7.5) 05/20/24 05:29 Ur Specific [place] 1.022 (1.000-1.030) 05/20/24 05:29 Urine Protein 3+ (Negative) H 05/20/24 05:29 Urine Glucose (UA) Negative (Negative) 05/20/24 05:29 Urine Ketones Negative (Negative) 05/20/24 05:29 Urine Blood 3+ (Negative) H 05/20/24 05:29 Urine Nitrite Negative (Negative) 05/20/24 05:29 Urine Bilirubin 1+ (Negative) H 05/20/24 05:29 Urine Urobilinogen Negative (Negative) 05/20/24 05:29 Ur Leukocyte Esterase 2+ (Negative) H 05/20/24 05:29 Urine WBC (Auto) >50 /hpf (0-5) H 05/20/24 05:29 Urine RBC (Auto) >20 /hpf (0-2) H 05/20/24 05:29 U Hyaline Cast (Auto) 3-5 /lpf (0-2) H 05/20/24 05:29 U Epithel Cells (Auto) 0-2 /hpf (0-2) 05/20/24 05:29 Urine Bacteria (Auto) None Seen (None Seen) 05/20/24 05:29 Impressions Abdomen/Pelvis CT 05/20/24 03:56 Exam(s): CT ABDOMEN + PELVIS Without Contrast EXAM: CT Abdomen and Pelvis Without Intravenous Contrast CLINICAL HISTORY: Reason for exam: abdominal pain; ascites. TECHNIQUE: Axial computed tomography images of the abdomen and pelvis without intravenous contrast. CTDI is 25.18 mGy and DLP is 1286.53 mGy-cm. Automated exposure control was utilized for the study. A dose lowering technique was utilized adhering to the principles of ALARA. COMPARISON: 04/23/24 FINDINGS: Lung bases: Unremarkable. No mass. No consolidation. Heart: Moderate coronary vascular calcifications are seen. ABDOMEN: Liver: There is lobulated of the liver outline, consistent with cirrhosis. Gallbladder and bile ducts: Gallbladder is contracted and is filled with multiple gallstones. No ductal dilation. Pancreas: 2.5 cm hypodensity seen in the pancreatic head with adjacent punctate rim calcifications. No ductal dilation. Spleen: Moderate splenomegaly. Adrenals: Unremarkable. No mass. Kidneys and ureters: Unremarkable. No obstructing stones. No hydronephrosis. Stomach and bowel: Unremarkable. No obstruction. No mucosal thickening. PELVIS: Appendix: No findings to suggest acute appendicitis. Bladder: Unremarkable. No stones. Reproductive: Unremarkable as visualized. ABDOMEN and PELVIS: Intraperitoneal space: Large ascites. No free air. Bones/joints: No acute fracture. No dislocation. Soft tissues: There is subcutaneous tissue edema seen in the abdominal wall. Lymph nodes: Unremarkable. No enlarged lymph nodes. IMPRESSION: 1. Cirrhotic liver with splenomegaly and large ascites 2. Focal hypodense lesion in the pancreatic head which can be further assessed on MRI study Electronically signed by: Ronnie Herrera MD 05/20/24 05:27 AM Diagnostic Findings EKG as per my interpretation :Rate 60, junctional rhythm, LAD, LAFB, multiple artifacts
[2024-05-20] MEDS: FUROSEMIDE 40 MG/4 ML VIAL IV ONE (06:29)
[2024-05-20] MEDS: POTASSIUM CHLORIDE PWD 20 MEQ PACK PO STA (06:29)
[2024-05-20] MEDS: ALBUMIN 25% 25 GM/100 ML VIAL IV ONE (06:29)
[2024-05-20 06:30] LABS: Thyroid Stimulating Hormone 3.241 uIu/ml (0.300-4.500)
[2024-05-20] MEDS ORDERED: PROMETHAZINE HCL 6.25 MG in SODIUM CHLORIDE 0.9% 50 ML IV PRN (06:41)
[2024-05-20] MEDS: HYDROmorphone INJ 0.5 MG/0.5 ML SYR IV PRN (06:55)
--- NOTE | 2024-05-20 07:43 | XRay Report ---
XR chest 1V portable CLINICAL HISTORY: abdominal pain TECHNIQUE: Single frontal radiograph of the chest was obtained. Comparison: Comparison is made to chest radiographs 05/03/2024 FINDINGS: No lines and tubes are seen. Aortic valvular prosthesis is seen. The lungs are clear. No evidence of pleural effusion or pneumothorax. IMPRESSION: No acute chest disease. ACT 112: Negative or not required by law. Electronically signed by: Arik Flowers M.D. 05/20/2024 7:42 AM
[2024-05-20] MEDS: MAGNESIUM SULFATE / D5W 1 GM/100 ML BAG IV ONE (07:57)
[2024-05-20] MEDS: PROMETHAZINE HCL 6.25 MG in SODIUM CHLORIDE 0.9% 50 ML IV STA (07:57)
[2024-05-20] MEDS: Patient's HEIGHT &/or WEIGHT Needed SCH (07:57)
--- OUTSIDE RECORDS SUMMARY | 2024-05-20 09:07 | External Medical Summary | Summary of Care ---
Author Name Unknown Organization [facility] Address [address] [place] [address] Phone [phone] Care Team Providers Care Automotive Parts Clerk Name Role Phone Francisco Cisse MD Primary Care Provider + Reason for Visit * Reason Comments Outpatient Testing Encounter Details Date Type Department Care Team (Late st Contact Info) Description 05/19/2024 11:10 AM EDT Laboratory Laboratory, [facility] [address] [facility] [address] [place] [phone] [facility] [address] [facility] [address] [place] [address] Gross hematuria; Hepatic cirrhosis, unspecified hepatic cirrhosis type, unspecified whether ascites present (HCC); Liver cell carcinoma (HCC); Chronic anemia; Cirrhosis of liver with ascites, unspecified hepatic cirrhosis type (HCC); FOFANA (nonalcoholic steatohepatitis) Allergies No known active allergiesdocumented as of this encounter (statuses as of 05/19/2024) Medications Medication Sig Dispensed Refills Start Date End Date Status OneTouch Raimundo In Vitro Strip (Glucose Blood)Indications:Ty pe 2 [...] (Lactobacillus) Oral Capsule 1 Capsule. 05/17/2023 Active oxygen IN GAS Use 2 L/min(Oxygen) [...] 1 Tablet in the morning. 03/20/2024 Active Solifenacin Succinate 5 MG Oral Tablet (VESIcare) Take 1 Tablet by mouth in the morning. 30 Tablet 6 04/14/2024 Active Cholestyramine 4 GM Oral Packet (Questran) Take 1 Packet by mouth in the morning and 1 Packet before bedtime. Mix with water and drink before a meal.. 60 Packet 5 04/16/2024 Active oxyBUTYnin Chloride 5 MG Oral Tablet (Ditropan) Take 1 tablet by mouth every 8 hours as needed for bladder spasms. 30 Tablet 05/12/2024 Active documented as of this encounter (statuses as of 05/19/2024) Active Problems Problem Noted Date Diagnosed Date Radiation cystitis 05/12/2024 Abnormal cystoscopy 12/19/2023 Protein-calorie malnutrition 12/06/2023 Prostate cancer 12/06/2023 [...] as of this encounter (statuses as of 05/19/2024) Resolved Problems Problem Noted Date Diagnosed Date Resolved Date Acute blood loss anemia 05/08/202405/02 Hematuria, gross 12/19/2023 05/11/2024 Closed compression fracture of body of L1 [...] as of this encounter (statuses as of 05/19/2024) Immunizations Name Administration Dates Next Due COVID-19 mRNA, LNP-s, No Pre serve, 2-Dose Series (TrustYou) 03/08/2021,02/15/2021 HepA Inact/HepB Recomb>=18yrs old 12/04/2019,04/2019,05/20/2019 11/19/2019 PPD 06/18/2017, 3,01/09/2012,06/2011 Pneumococcal Conjugate Vacc, 13 Valent (Prevnar) 05/01/2017 Pneumococcal Polysaccharide PPV23 (Pneumovax) 08/28/2022,10/25/2015,07/14/2012 Season Influenza, Quad, PF, Adjuvanted, 65+ Yrs, IM (FLUAD) 10/07/2020(Deferred: Patient Refused - pt says he already had his shot last month at [facility] Handy Lyons and Mckinley Cobian made aware) [...] 09/15/2021 TDAP (age 10 and older)(Boostrix) 09/28/2022 TDAP, Age 7 and older, IM (Adacel) 02/12/2011 documented as of this encounter Social [...] you have serious difficulty h earing? No 05/08/2024 Are you blind or do you have serious difficulty seeing, even when wearing glasses? No 05/08/2024 Do you have serious difficul ty walking or climbing stairs? (5 years old or older) Yes 05/08/2024 Do you have difficulty dress ing or bathing? (5 years old or older) No 05/08/2024 Because of a physical, menta l, or emotional condition, do you have difficulty doing errands alone such as visiting a doctor s office or shopping? (15 years old or older) No 05/08/20 Cognitive Status Response Date of Assessm ent Because of a physical, menta l, or emotional condition, do you have serious difficulty concentrating, remembering, or making decisions? (5 years old or older) No 05/08/2024 documented as of this encounter Plan of Treatment Upcoming Encounters Date Type Department Care Team (Late st Contact Info) Description 2024 2:30 PM EDT Office Visit Urology Lynnette Fitzpatrick [address] [address] [address] Frank Peraza MD [address] [place] [address] [address] 05/26/2024 7:05 AM EDT Laboratory Lab [facility] [address] [facility] [place] [address] [facility] [address] [place] [address] 06/02/2024 7:00 AM EDT Laboratory Lab [facility] [address] [place], [place] [address] [facility] [address] [place] [address] 06/09/2024 7:00 AM EDT Laboratory Lab [facility] [address] [place] [address] [facility] [address] [place] [address] 06/16/2024 7:00 AM EDT Laboratory Lab [facility]botomy [facility] [address] [place], [place] [address] [facility] [address] [place] [address] 06/23/2024 7:00 AM EDT Laboratory Lab [facility] [address] [place] [address] [facility] [address] [facility] [place], [place] [address] 06/23/2024 2:00 PM EDT Office Visit Hematology/Oncology [facility] [address] [facility] [place], [place] [phone] Ayaka Tatum CRNP [address] [place], [place] [address] [address] 06/30/2024 7:00 AM EDT Laboratory Lab [facility] [address] [place], [place] [address] [facility] [address] [place], [place] [address] 07/07/2024 7:00 AM EDT Laboratory Lab [facility]bot[facility] [address] [place], [place] [address] [facility] [address] [place], [place] [address] 07/09/2024 9:40 AM EDT Office Visit Family Practice [facility] [address] [facility] [address] Kristen Vences DO [address] [facility] [place] [address] 07/14/2024 7:00 AM EDT Laboratory Lab [facility] Phlebotomy [facility] [address] [place] [address] [facility] [address] [place], [place] [address] 07/21/2024 7:00 AM EDT Laboratory Lab [facility] Phlebotomy [facility] [address] [place] [address] [facility] [address] [place], [place] [address] 07/23/2024 9:30 AM EDT Office Visit Cardiology, [facility] [place] [address] Carlee Salazar CRNP [facility] [address] 07/28/2024 7:00 AM EDT Laboratory Lab [facility] Ph[facility]bot[facility] [address] [place], [place] [address] [facility] [address] [place], [place] [address] 07/28/2024 2:00 PM EDT Office Visit Nephrology, [facility] [address] [place], [place] [address] Franki Herbert MD [address] [place], [place] [address] 08/04/2024 7:00 AM EDT Laboratory Lab [facility] [address] [place] [address] [facility] [address] [facility] [place] [address] 08/11/2024 7:00 AM EDT Laboratory Lab [facility] Phlebotomy [facility] [address] [facility] [place] [address] [facility] [address] [facility] [place] [address] 08/18/2024 7:00 AM EDT Laboratory Lab [facility]bot[facility] [address] [facility] [place] [address] [facility] [address] [facility] [place], [place] [address] 08/20/2024 10:15 AM EDT Office Visit Ophthalmology, [facility] [address] [facility] [place] [address] Cody Gonzalez, DO [address] [facility] [address] 08/25/2024 7:00 AM EDT Laboratory Lab [facility] Phlebot[facility] [address] [facility] [place], [place] [address] [facility] [address] [facility] [place], [place] [address] 09/01/2024 7:00 AM EDT Laboratory Lab [facility] Phlebotomy [facility] [address] [facility] [place], [place] [address] [facility] [address] [facility] [place] [address] 09/08/2024 7:00 AM EDT Laboratory Lab [facility] Ph[facility]bot[facility] [address] [facility] [place] [address] [facility] [address] [facility] [place], [place] [address] 09/15/2024 7:00 AM EDT Laboratory Lab [facility] Phlebotomy [facility] [address] [place] [address] [facility] [address] [facility] [place] [address] 09/22/2024 7:00 AM EDT Laboratory Lab [facility] Phlebot[facility] [address] [place] [address] [facility] [address] [facility] [place] [address] 09/29/2024 7:00 AM EDT Laboratory Lab [facility] [address] [facility] [place] [address] [facility] [address] [facility] [place] [address] 10/06/2024 7:00 AM EST Laboratory Lab [facility] Ph[facility] [address] [place] [address] [facility] [address] [facility] [place] [address] 10/12/2024 10:20 AM EST Office Visit Pulmonary Medicine, [facility] [address] [place] [address] Jordan Stanley MD [address] [place] [address] [address] 10/13/2024 7:00 AM EST Laboratory Lab [facility] [address] [facility] [place] [address] [facility] [address] [facility] [place] [address] 10/20/2024 7:00 AM EST Laboratory Lab [facility] [address] [facility] [place] [address] [facility] [address] [facility] [place] [address] 10/27/2024 7:00 AM EST Laboratory Lab [facility] Phlebot[facility] [address] [place] [address] [facility], [facility] Draw [address] [facility], [place] [address] 10/30/2024 10:00 AM EST Office Visit Urology Lynnette Fitzpatrick [address] [place] [address] [address] Frank Peraza MD [address] [place] [address] [place] [address] Pending Results Name Type Priority Associated Diagnoses Date /Time CBC WITH WBC DIFFERENTIAL Lab Routine Gross hematuria Hepatic cirrhosis, unspecified hepatic cirrhosis type, unspecified whether ascites present (HCC) Liver cell carcinoma (HCC) Chronic anemia Cirrhosis of liver with ascites, unspecified hepatic cirrhosis type (HCC) FOFANA (nonalcoholic steatohepatitis) 05/19/2024 10:43 AM EDT RENAL FUNCTION PANEL Lab Routine Gross hematuria Hepatic cirrhosis, unspecified hepatic cirrhosis type, unspecified whether ascites present (HCC) Liver cell carcinoma (HCC) Chronic anemia Cirrhosis of liver with ascites, unspecified hepatic cirrhosis type (HCC) FOFANA (nonalcoholic steatohepatitis) 05/19/2024 10:43 AM EDT CBC Lab Routine Gross hematuria Hepatic cirrhosis, unspecified hepatic cirrhosis type, unspecified whether ascites present (HCC) Liver cell carcinoma (HCC) Chronic anemia Cirrhosis of liver with ascites, unspecified hepatic cirrhosis type (HCC) FOFANA (nonalcoholic steatohepatitis) 05/19/2024 10:43 AM EDT DIFFERENTIAL, AUTOMATED Lab Routine Gross hematuria Hepatic cirrhosis, unspecified hepatic cirrhosis type, unspecified whether ascites present (HCC) Liver cell carcinoma (HCC) Chronic anemia Cirrhosis of liver with ascites, unspecified hepatic cirrhosis type (HCC) FOFANA (nonalcoholic steatohepatitis) 05/19/2024 10:43 AM EDT ALBUMIN / CREATININE RATIO, URINE Lab Routine Gross hematuria Hepatic cirrhosis, unspecified hepatic cirrhosis type, unspecified whether ascites present (HCC) Liver cell carcinoma (HCC) Chronic anemia Cirrhosis of liver with ascites, unspecified hepatic cirrhosis type (HCC) FOFANA (nonalcoholic steatohepatitis) 05/19/2024 10:46 AM EDT Scheduled Procedures Name Priority Associated [...] Vaccine ( season) 2023 10/18/2023, 03/08/2021, 02/15/2021 Diabetic Eye Exam 01/17/2024 01/17/2023, , 01/17/2023, Additional history exists Albumin/Creatinine Ratio 07/12/2024 023, 10/01/2022, 09/11/2021, Additional history exists Colonoscopy 08/09/2024 08/09/2023, 06/2022, 11/07/2022, Additional history exists Colorectal Cancer Screening 08/09/2024 HbA1c 10/08/2024 04/07/2024, 11/02, 05/28/2023, Additional history exists GFR 11/11/2024 05/12/2024, 05/02, 05/10/2024, Additional history exists CKD PHOS USE SMARTSET 62656 05/08/202506/2024, 04/07/2024, 02/26/2024, Additional history exists CKD HGB USE SMARTSET 84551 05/18/202505/18, 05/18/2024, 05/12/2024, Additional history exists Diabetic Foot Exam 05/19/2025 05/19/2024, 0 03/06/2023, 01/03/2022, Additional history exists Sigmoidoscopy 04/12/2027 04/12/2022 Lipid [...] Completed 10/11/2023, 09/15/2021, 09/15/2021, Additional history exists Zoster Vaccines Completed 03/22/2024, 10/18/2023 GARDASIL-HPV IMMUNIZATION SERIES Aged Out No longer eligible based on patient's age to complete this topic MENINGOCOCCAL (MENACTRA/MENVEO) Aged Out No longer eligible based on patient's age to complete this topic documented as of this encounter Medical Devices Implanted Type Area Curriculum And Assessment Director Device Identifier Shelf Expiration Date Model / Serial / Lot Clareon Iol Aspheric Hydrophobic Acrylic Iol Implanted:Qty: 1 on 04/23/2023 by Cody Gonzalez DO at OR [facility] Lens Left: Eye 11/12/2025 [id number] / [id number] / Viatorr Tips Endoprosthesis 8-10 Mm X 8cm / 2cm Implanted:Qty: 1 on 10/07/2020 by Go Alvarado MD at [facility] Right: Abdomen 03/03/2023 [id number] / / [id number] Description:Viatorr TIPS End oprosthesis 8-10 mm x 8cm / 2cm, Manufactored by [employer] Syr Pf 2ml Embospheres 100-300 - [id number] Implanted:Qty: 1 on 04/18/2021 by Kevin Lim DO at OR [facility] Left: Abdomen [employer] [id number] 11/25/2023 [id number] / / [id number] Lipiodol Injection - [id number] Implanted:Qty: 1 on 03/28/2022 at [facility] [employer] 03/01/2023 [id number] 01-2 / / [id number] Syr Pf 2ml Embospheres 100-300 - [id number] Implanted:Qty: 1 on 03/28/2022 at [facility] [employer] [id number] 08/31/2024 S220GH / / [id number] Clareon Iol Aspheric Hydrophobic Acrylic Iol Implanted:Qty: 1 on 04/02/2023 by Cody Gonzalez DO at OR [facility] Right: Eye [employer] 11/12/2025 [id number] / [id number] / documented as of this encounter Visit Diagnoses Diagnosis Gross hematuria Hepatic cirrhosis, unspecified hepatic cirrhosis type, unspecified whether ascites present (HCC) Liver cell carcinoma (HCC) Malignant neoplasm of liver, primary Chronic anemia Anemia, unspecified Cirrhosis of liver with ascites, unspecified hepatic cirrhosis type (HCC) FOFANA (nonalcoholic steatohepatitis) Other chronic nonalcoholic liver disease documented in this encounter Advance Directives Documents on File Type Date Recorded Patient Customer Support Specialist Expl anation Advance Directives and Living Will 12/11/2022 ADVANCE DIRECTIVE / LIVING WILL LIVING WILL Power of Rn Peritoneal Dialysis 12/11/2022 POWER OF A TTORNEY * Full Code (Latest Code Status on File) Date Activated Date Inactivated Comments 05/08/2024 5:58 PM 05/12/2024 9:53 PM This order re flects the patients wishes and were consensually agreed upon. Question Answer Comments Discussion of Advance Directives occurred with: Patient * Full Code Date Activated Date Inactivated Comments 01/30/2024 2:07 [...] with: Not Discussed due to patient's condition Care Teams Automotive Parts Clerk Relationship Specialty Start Date End Date Francisco Cisse MD [address] [place] [address] PCP - General Internal Medicine 09/04/21 documented as of this encounter
--- OUTSIDE RECORDS SUMMARY | 2024-05-20 09:07 | External Medical Summary | Summary of Care ---
Author Name Unknown Organization [facility] Address [address] [place] [address] Phone [phone] Care Team Providers Care Stemhole Borer Name Role Phone Francisco Cisse MD Primary Care Provider + Reason for Visit * Reason Comments Outpatient Testing Encounter Details Date Type Department Care Team (Late st Contact Info) Description 05/19/2024 11:10 AM EDT Laboratory Laboratory, [facility] [address] [facility] [place] [phone] [facility] [address] [facility] [place] [address] Gross hematuria; Hepatic cirrhosis, unspecified hepatic cirrhosis [...] mRNA, LNP-s, No Pre serve, 2-Dose Series (Appreciation Engine) 03/08/2021,02/15/2021 HepA Inact/HepB Recomb>=18yrs old 12/04/2019,04/2019,05/20/2019 11/19/2019 PPD 06/18/2017, 3,01/09/2012,06/2011 Pneumococcal Conjugate Vacc, 13 Valent (Prevnar) 05/01/2017 Pneumococcal Polysaccharide PPV23 (Pneumovax) 08/28/2022,10/25/2015,07/14/2012 Season Influenza, Quad, PF, Adjuvanted, 65+ Yrs, IM (FLUAD) 10/07/2020(Deferred: Patient Refused - pt says he already had his shot last month at [facility] Handy Lyons and Mckinley Cobian [...] Fitzpatrick [address] [place] [address] Frank Peraza MD [address] [place] [address] 05/26/2024 7:05 AM EDT Laboratory Lab [facility] [address] [place] [address] [facility] [address] [employer] [place] [address] 06/02/2024 7:00 AM EDT Laboratory Lab [facility] [address] [place], [place] [address] M[facility], [facility] [address] [employer] [place] [address] 06/09/2024 7:00 AM EDT Laboratory [facility] [address] [place] [address] Mvmg, [facility] [address] [employer] [place] [address] 06/16/2024 7:00 AM EDT Laboratory Lab [facility] [address] [place], [place] [address] Mv[facility], [facility] [address] [employer] [place] [address] 06/23/2024 7:00 AM EDT Laboratory [facility] [address] [place] [address] [facility], [facility] [address] [facility] [place], [place] [address] 06/23/2024 2:00 PM EDT Office Visit Hematology/Oncology [facility] [address] [facility] [place], [place] [phone] Ayaka Tatum CRNP [address] [place], [place] [address] [address] 06/30/2024 7:00 AM EDT Laboratory [facility] [address] [place], [place] [address] [facility], [facility] [address] [employer] [employer] [place], [place] [address] 07/07/2024 7:00 AM EDT Laboratory Lab [facility] [address] [place], [place] [address] M[facility], [facility] [address] [place], [place] [address] 07/09/2024 9:40 AM EDT Office Visit [facility] Practice [facility] [address] [facility] [address] Kristen Vences DO [facility] [place] [address] 07/14/2024 7:00 AM EDT Laboratory Lab [facility] [address] [place] [address] [facility], [facility] [address] [place], [place] [address] 07/21/2024 7:00 AM EDT Laboratory Lab [facility] [address] [place] [address] M[facility], [facility] [address] [place], [place] [address] 07/23/2024 9:30 AM EDT Office Visit [facility], [facility] [place] [address] Carlee Salazar CRNP [address] [facility] [address] 07/28/2024 7:00 AM EDT Laboratory Lab [facility] [address] [place], [place] [address] [facility], [facility] [address] [place], [place] [address] 07/28/2024 2:00 PM EDT Office Visit Nephrology, [facility] [address] [place], [place] [address] Franki Herbert MD [address] [place], [place] [address] 08/04/2024 7:00 AM EDT Laboratory Lab [facility] [address] [place] [address] [facility], [facility] [address] [place] [address] 08/11/2024 7:00 AM EDT Laboratory Lab [facility] [address] [place] [address] M[facility]mg, [facility] [address] [place] [address] 08/18/2024 7:00 AM EDT Laboratory Lab [facility] [address] [place] [address] Mvmg, [facility] [address] [facility] [place], [place] [address] 08/20/2024 10:15 AM EDT Office Visit Ophthalmology, [facility] [address] [facility] [place] [address] Cody Gonzalez, DO [address] [facility] [address] 08/25/2024 7:00 AM EDT Laboratory Lab [facility] [address] [facility] [place], [place] [address] [facility], [facility] [address] [facility] [place], [place] [address] 09/01/2024 7:00 AM EDT Laboratory Lab [facility] [address] [facility] [place], [place] [address] M[facility], [facility] [address] [place] [address] 09/08/2024 7:00 AM EDT Laboratory Lab [facility] [address] [place] [address] Mvmg, [facility] [address] [facility] [place], [place] [address] 09/15/2024 7:00 AM EDT Laboratory Lab [facility] [address] [place] [address] [facility], [facility] [address] [place] [address] 09/22/2024 7:00 AM EDT Laboratory Lab [facility] [address] [employer] [place] [address] Mvmg, [facility] [address] [place] [address] 09/29/2024 7:00 AM EDT Laboratory Lab [facility] [address] [place] [address] M[facility], [facility] [address] [place] [address] 10/06/2024 7:00 AM EST Laboratory Lab [facility] [address] [place] [address] M[facility], [facility] [address] [place] [address] 10/12/2024 10:20 AM EST Office Visit Pulmonary Medicine, [facility] [address] [facility] [place] [address] Jordan Stanley MD [address] [place] [address] 10/13/2024 7:00 AM EST Laboratory [facility] [address] [place] [address] [facility], [facility] [address] [place] [address] 10/20/2024 7:00 AM EST Laboratory Lab [facility] [address] [place] [address] M[facility], [facility] [address] [place] [address] 10/27/2024 7:00 AM EST Laboratory Lab [facility] [address] [employer] [place] [address] [facility], [facility] [address] [facility], [place] [address] 10/30/2024 10:00 AM EST Office Visit Urology Lynnette Fitzpatrick [address] [place] [address] Frank Peraza MD [address] [place] [address] Pending Results Name Type Priority Associated Diagnoses [...] Additional history exists CKD PHOS USE SMARTSET 58752 05/08/202506/2024, 04/07/2024, 02/26/2024, Additional history exists CKD HGB USE SMARTSET 20533 05/18/202505/18, 05/18/2024, 05/12/2024, Additional history exists Diabetic [...] this encounter Medical Devices Implanted Type Area Police Detention Attendant Device Identifier Shelf Expiration Date Model / Serial / Lot Clareon Iol Aspheric Hydrophobic Acrylic Iol Implanted:Qty: 1 on 04/23/2023 by Cody Gonzalez DO at [facility] Lens Left: Eye 11/12/2025 [id number] / [id number] / Viatorr Tips Endoprosthesis 8-10 Mm X 8cm / 2cm Implanted:Qty: 1 on 10/07/2020 by Go Alvarado MD at [facility] Right: Abdomen 03/03/2023 [id number] / / [id number] Description:Viatorr TIPS End oprosthesis 8-10 mm x 8cm / 2cm, Manufactored by [employer] Syr Pf 2ml Embospheres 100-300 - [id number] Implanted:Qty: 1 on 04/18/2021 by Kevin Lim DO at [facility] Left: Abdomen [employer] [id number] 11/25/2023 S220GH / / [id number] Lipiodol Injection - [id number] Implanted:Qty: 1 on 03/28/2022 at [facility] [employer] 03/01/2023 [id number] 01-2 / / [id number] Syr Pf 2ml Embospheres 100-300 - [id number] Implanted:Qty: 1 on 03/28/2022 at [facility] [employer] [id number] 08/31/2024 S220GH / / [id number] Clareon Iol Aspheric Hydrophobic Acrylic Iol Implanted:Qty: 1 on 04/02/2023 by Cody Gonzalez DO at [facility] Right: Eye JAZMIN 11/12/2025 CNA0T0 / [id number] / documented as of this encounter [...] on File Type Date Recorded Patient Drug Purchaser Expl anation Advance Directives and Living Will 12/11/2022 ADVANCE DIRECTIVE / LIVING WILL LIVING WILL Power of Electrician Refinery 12/11/2022 POWER OF A TTORNEY * Full [...] Discussed due to patient's condition Care Teams Stemhole Borer Relationship Specialty Start Date End Date Francisco Cisse MD [address] [place] [address] PCP - General Internal Medicine 09/04/21 documented as of this encounter
--- OUTSIDE RECORDS SUMMARY | 2024-05-20 09:08 | External Medical Summary ---
Author Name Unknown Address Unknown Organization [facility] [address] [place] [address] Laboratory Report Ordering Provider Test Date Status KANDI RINALDI 05/19/2024 10:43:07 Final Observation Date Value Abnormality Reference (Units ) Status SYNC LEUKOCYTES IN BLOOD BY AUTOMATED COUNT 05/19/2024 10:43:07 3.29 Below low normal 4.00-10.80 (K/uL) Final Segs 05/19/2024 10:43:07 65.0 40.0-75.0 (%) Final Lymphs % 05/19/2024 10:43:07 20.4 18.0-42.0 (%) Final Monos 05/19/2024 10:43:07 5.8 1.0-11.0 (%) Final Eosinophils 05/19/2024 10:43:07 7.9 Above high normal 0.0-6.0 (%) Final Basos 05/19/2024 10:43:07 0.9 0.0-2.0 (%) Final Absolute Segs 05/19/2024 10:43:07 2.14 1.80-7.70 (K/uL) Final Lymphs, absolute 05/19/2024 10:43:07 0.67 Below low normal 1.00-4.80 (K/ul) Final Monos, Abs 05/19/2024 10:43:07 0.19 0.00-1.10 (K/uL) Final Eos, Abs 05/19/2024 10:43:07 0.26 0.00-0.70 (K/uL) Final Basos, Abs 05/19/2024 10:43:07 0.03 0.00-0.20 (K/uL) Final Performing Location [facility] [place] [address]
--- OUTSIDE RECORDS SUMMARY | 2024-05-20 09:08 | External Medical Summary | Summary of Care ---
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 Name Role Phone Francisco Cisse MD Primary Care Provider + Reason for Referral * Evaluate & Treat - Unlimited Visits (Within 10 days (routine)) - Authorized Specialty Diagnoses / Procedures Referred By Chacho fleming Referred To Contact Nephrology Diagnoses Chronic anemia Pulmonary hypertension (HCC) Chronic kidney disease, stage 3a (HCC) Peripheral edema Kristen Vences DO [address] [place] [address] Referral ID Status Reason Start Date Expiration Date Visits Requested Visits Authorized [id number] Authorized Specialty Services Required 05/19/[phone] Question Answer Referral Priority Within 10 days (routine) Where should this appointment be scheduled? [facility] What condition is this patient being seen for? Chronic kidney disease * Evaluate & Treat - Unlimited Visits (Within 10 days (routine)) - Authorized Specialty Diagnoses / Procedures Referred By Chacho fleming Referred To Contact Cardiovascular Medicine / Cardiology Diagnoses Cirrhosis of liver with ascites, unspecified hepatic cirrhosis type (HCC) Diastolic dysfunction Dyslipidemia, goal LDL below 100 Pulmonary hypertension (HCC) Kristen Vences DO [address] [place] [address] Referral ID Status Reason Start Date Expiration Date Visits Requested Visits Authorized [id number] Authorized Specialty Services Required 05/19/[phone] Question Answer Referral Priority Within 10 days (routine) Where should this appointment be scheduled? [facility] To which of the following clinics are you referring your patient? [facility]iology [facility] Reason for Visit * Reason Onset Date Comments NEW PATIENT New pt to this p kevin to get established in care, has multiple issues and asking about lasix as he has had increase swelling. Routine Exam 05/19/2024 Encounter Details Date Type Department Care Team (Late st Contact Info) Description 05/19/2024 9:20 AM EDT Office Visit [facility] [address] [place] [address] Kristen Vences DO [address] [place] [address] Type 2 diabetes mellitus with hemoglobin A1c goal of less than 7.0% (HCC)*; Gross hematuria; Hepatic cirrhosis, unspecified hepatic cirrhosis type, unspecified whether ascites present (HCC); Liver cell carcinoma (HCC); Chronic anemia; Cirrhosis of liver with ascites, unspecified hepatic cirrhosis type (HCC); FOFANA (nonalcoholic steatohepatitis); Hospital discharge follow-up; Diastolic dysfunction; Dyslipidemia, goal LDL below 100; Pulmonary hypertension (HCC); Chronic kidney disease, stage 3a (HCC); Peripheral edema Allergies No known active allergiesdocumented as of this encounter (statuses as of 05/19/2024) Medications Medication Sig Dispensed Refills Start Date End Date Status OneTouch Verio In Vitro Strip (Glucose Blood)Indications:Ty [...] Date Resolved Date Acute blood loss anemia 05/08/2024 06/1 Hematuria, gross 12/19/2023 05/11/2024 Closed compression fracture [...] mRNA, LNP-s, No Pre serve, 2-Dose Series ([employer]) 03/08/2021,02/15/2021 HepA Inact/HepB Recomb>=18yrs old 12/04/2019,04/2019,05/20/2019 11/19/2019 PPD 06/18/2017, 3,01/09/2012,06/2011 Pneumococcal Conjugate Vacc, 13 Valent (Prevnar) 05/01/2017 Pneumococcal Polysaccharide PPV23 (Pneumovax) 08/28/2022,10/25/2015,07/14/2012 Season Influenza, Quad, PF, Adjuvanted, 65+ Yrs, IM (FLUAD) 10/07/2020(Deferred: Patient Refused - pt says he already had his shot last month at [facility] Handy Lyons and Mckinley Cobian [...] 12/19/1999 TDAP (age 10 and older)(Boostrix) 09/28/2022 TDAP, [...] money to buy more. Never true 08/14/20 Within the past 12 months, t he [...] Sign Reading Time Taken Comments Blood Pressure 132/60 05/19/2024 9:30 AM EDT Pulse 79 05/19/2024 9:30 AM EDT Temperature 36.8 C (98.2 F) 05/19/2024 9:30 AM ED T Respiratory Rate 18 05/19/2024 9:30 AM EDT Oxygen Saturation 98% 05/19/2024 9:30 AM EDT Inhaled Oxygen Concentration - - Weight 84.8 kg (187 lb) 05/19/2024 9:30 AM EDT Height 177.8 cm (5' 10") 05/19/2024 9:30 AM EDT Body Mass Index 26.83 05/19/2024 9:30 AM EDT documented in this encounter Functional [...] No 05/08/2024 documented as of this encounter Progress Notes * Arlene Damno LPN - 05/19/2024 10:17 AM EDT Socks and Shoes Removed for Annual Diabetic Foot Screening RIGHT FOOT: No Reddened, Cracking, Or Open Areas Noted. RIGHT Dorsalis Pedis Pulse: Palpable RIGHT Posterior Tibial Pulse: Palpable RIGHT Monofilament:Patient reports feeling monofilament pressure on plantar surface of foot LEFT FOOT: No Reddened, Cracking or Open Areas Noted. LEFT Dorsalis Pedis Pulse: Palpable LEFT Posterior Tibial Pulse: Palpable LEFT Monofilament:Patient reports feeling monofilament pressure on plantar surface of foot Do you need diabetic shoes: No * Kristen Vences, - 05/19/2024 9:48 AM EDT Subjective: Luis Hale is a 73 year old male. Chief Complaint Patient presents with NEW PATIENT New pt to this practice to get established in care, has multiple issues and asking about lasix as he has had increase swelling. There are no exam notes on file for this visit. 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 The patient has had chronic hematuria resulting in multiple readmissions. On 05/03/24 he presented [facility] with chest pain and SOB and was found to have ABLA (hgb 6.1) and LUCRETIA (Cr 1.6 from baseline 1.2) due to hematuria with clots. He was seen by urology and started on continuous bladder irrigation and received multiple transfusions. Despite this, he has had ongoing hematuria with worsening anemia.Urology recommended [place] [facility] [place] for consideration of b/l PCNs for urinary diversion. He was treated with empiric ceftriaxone due to history of recurrent UTIs. The patient lives at home with his but states she is in worse health than he is. He has adult children who live nearby and check in on them. He occasionally uses a walker. Denies tobacco or ETOHuse. Would like to be a full code. GI cirrhosis, HCC, NAFLD - Q2 week paracentesis schedule (has next set up for ) Hematology prostate ca, pancytopenia, HCC Transplant liver Pulmonary RLD, PHTN Urology prostate ca Echo - grade 2 diastolic dysfunction overdue to see cardiology Health Maintenance Due Topic Date Due Depression Screening 05/03/2022 COVID-19 Vaccine ( season) 2023 Diabetic Eye Exam 01/17/2024 Diabetic Foot Exam 03/06/2024 Albumin/Creatinine Ratio 07/12/2024 Colorectal Cancer Screening 08/09/2024 Patient Active Problem List Diagnosis Allergic rhinitis Pancreas cyst Esophageal reflux Type 2 diabetes mellitus with hemoglobin A1c goal of less than 7.0% (HCC) Dyslipidemia, goal LDL below 100 GAVE (gastric antral vascular ectasia) Esophageal varices (HCC) Cirrhosis of liver (HCC) Psoriasis Acquired renal cyst Acquired thrombocytopenia (HCC) Iron deficiency anemia Chronic anemia S/P TIPS (transjugular intrahepatic portosystemic shunt) History of prostate cancer Anemia due to stage 3a chronic kidney disease (HCC) Liver cell carcinoma (HCC) Pancytopenia (HCC) Chronic kidney disease, stage 3a (HCC) Portal vein thrombosis Prolonged Q-T interval on ECG Type 2 diabetes mellitus with stage 3a chronic kidney disease, with long-term current use of insulin (HCC) Mild mitral regurgitation Chronic gout of multiple sites Radiation proctitis Pulmonary hypertension (HCC) Aortic valve sclerosis Restrictive ventilatory defect Lung disease, restrictive Closed T12 spinal fracture (HCC) Protein-calorie malnutrition (HCC) Prostate cancer (HCC) Abnormal cystoscopy Radiation cystitis Current Outpatient Medications Medication Sig Dispense Refill Hemosphere In Vitro Strip (Glucose Blood) Use to [...] 5 Probiotic (Lactobacillus) Oral Capsule 1 Capsule. oxygen IN GAS Use 2 L/min(Oxygen) as [...] SoloStar 100 UNIT/ML Subcutaneous Solution Pen-injector once. Triamcinolone Acetonide 0.1 % External Cream (Aristocort) Apply to psoriatic lesions on arms, legs,hands, feet, chest, back, abdomen twice a day as needed for 2-3 weeks 453.6 g 0 Mag64 64 MG Oral Tablet Delayed Release Take 1 Tablet by mouth in the morning. Potassium Chloride Stephanie ER 20 MEQ Oral Tablet Extended Release 1 Tablet in the morning. Solifenacin Succinate 5 MG Oral Tablet (VESIcare) Take 1 Tablet by mouth in the morning. 30 Tablet 6 Cholestyramine 4 GM Oral Packet (Questran) Take 1 Packet by mouth in the morning and 1 Packet before bedtime. Mix with water and drink before a meal.. 60 Packet 5 oxyBUTYnin Chloride 5 MG Oral Tablet (Ditropan) Take 1 tablet by mouth every 8 hours as needed for bladder spasms. 30 Tablet 0 Albumin Human 25 % Intravenous Solution 25Gm before and after paracentesis 100 mL 0 Albumin Human 25 % Intravenous Solution [...] 60 minute each unit 50 mL 0 Albumin Human 25 % Intravenous Solution [...] No current facility-administered medications for this visit. Past Medical History: Diagnosis Date Acquired thrombocytopenia (HCC) 09/05/2017 Allergic rhinitis Anemia 12/2023 required transfusion Anxiety and depression Aortic valve sclerosis 02/01/2023 Benign neoplasm of colon 04/16/2013 COLONOSCOPY FLEXIBLE PROXIMAL DIAGNOSTIC performed by Salvador Lopez MD at ENDOSCOPY [facility], adenomatous polyps repeat colonoscopy in [...] performed by Cody Gonzalez DO at OR [facility] CATARACT SURGERY,COMPLEX Left 04/23/2023 LEFT EXTRACAPSULAR CATARACT REMOVAL COMPLEX WITH IOL performed by Cody Gonzalez DO at OR [facility] COLONOSCOPY 08/27/2005 lock haven/hemorrhoids non internal COLONOSCOPY, DIAGNOSTIC (RECTUM) 04/16/2013 COLONOSCOPY FLEXIBLE PROXIMAL DIAGNOSTIC performed by Salvador Lopez MD at ENDOSCOPY [facility], adenomatous polyps repeat colonoscopy in 3 years COLONOSCOPY, DIAGNOSTIC (RECTUM) 05/03/2016 adenomatous polyps, diverticulosis, repeat 5 yrs/COLONOSCOPY FLEXIBLE PROXIMAL DIAGNOSTIC performedby Salvador Lopez MD at ENDOSCOPY [facility] COLONOSCOPY, DIAGNOSTIC (RECTUM) 07/19/2020 adenomatous & hyperplastic polyps, diverticulosis, repeat 3 yrs / [facility] COLONOSCOPY, DIAGNOSTIC (RECTUM) 11/30/2021 mild XRT proctitis, diverticulosis / COLONOSCOPY FLEXIBLE PROXIMAL DIAGNOSTIC performed by Barbara March DO at ENDOSCOPY [facility] COLONOSCOPY, DIAGNOSTIC (RECTUM) 02/01/2022 Mild XRT proctitis / COLONOSCOPY FLEXIBLE PROXIMAL DIAGNOSTIC performed by Barbara March DO at ENDOSCOPY [facility] COLONOSCOPY, DIAGNOSTIC (RECTUM) N/A 11/07/2022 poor prep/diverticulosis sigmoid colon/rectal angioectasias consistent with radiation proctopathy/Colonoscopy/[place] COLONOSCOPY, DIAGNOSTIC (RECTUM) N/A 08/09/2023 poor prep/moderate diverticulosis/hemorrhoids/biopsies show adenomatous and hyperplastic polyps/recall 1 years/Colonoscopy/[place] CT ABDOMEN W IV AND W ORAL CONTRAST 01/10/2010 CYSTOSCOPY, REMOVAL OF CLOTS N/A 05/09/2024 CYSTOURETHROSCOPY WITH IRRIGATION AND EVACUATION OF CLOTS performed by Luis Whitehead MDa [place] [facility] CYSTOSCOPY/TREAT LGE BLADDER TUMOR N/A 05/09/2024 CYSTOURETHROSCOPY WITH FULGURATION LARGE BLADDER TUMOR performed by Luis Whitehead MD atOR [facility] CYSTOSCOPY/TREAT MED BLADDER TUMOR N/A 01/30/2024 CYSTOURETHROSCOPY WITH FULGURATION MEDIUM BLADDER TUMOR performed by Frank Peraza MD at OR [facility] EGD, FLEXIBLE, DIAGNOSTIC 07/22/2014 GE varices oozing blood, gastric polyp/ESOPHAGOGASTRODUODENOSCOPY (EGD), FLEXIBLE, TRANSORAL, DIAGNOSTIC performed by Juaquin Arrington MD at ENDOSCOPY [facility] EGD, FLEXIBLE, DIAGNOSTIC 07/23/2014 ESOPHAGOGASTRODUODENOSCOPY (EGD), FLEXIBLE, TRANSORAL, DIAGNOSTIC performed by Sophie Merino MD at [facility] [facility] EGD, FLEXIBLE, DIAGNOSTIC 06/02/2019 eso & gastric varices, gastric polyps/ESOPHAGOGASTRODUODENOSCOPY (EGD), FLEXIBLE, TRANSORAL, DIAGNOSTIC performed by Salvador Lopez MD at ENDOSCOPY [facility] EGD, FLEXIBLE, DIAGNOSTIC 03/25/2020 portal hypertensive gastropathy, esophageal varices / INPT [facility] EGD, FLEXIBLE, DIAGNOSTIC 07/19/2020 eso varices, portal hypertensive gastropathy, repeat 3 mo / [facility] EGD, FLEXIBLE, DIAGNOSTIC 10/25/2020 Portal hypertensive gastropathy, eso varices / [facility] EGD, FLEXIBLE, DIAGNOSTIC 08/202222 Grade I esophageal varices / [facility] EGD, FLEXIBLE, DIAGNOSTIC N/A 09/11/2022 grade II esophageal varices/gastric antral vascular ectasia, treated with APC/repeat 3 months/EGD/ID EGD, FLEXIBLE, DIAGNOSTIC N/A 11/07/2022 grade III esophageal varices, banded/gastric antral vascular ectasia/repeat 2 months/EGD/[place] EGD, FLEXIBLE, DIAGNOSTIC N/A 02/01/2023 [facility]< egd. / single G2 varix, banded and varices eradicated / no specimens collected / egd in 1 to 2 months / EGD, FLEXIBLE, DIAGNOSTIC N/A 08/09/2023 portal hypertensive gastropathy/repeat 1 year/EGD/[place] EGD, FLEXIBLE, DIAGNOSTIC 05/22/2023 GAVE, repeat 4-6 wks / [facility] IR CANCER THERASPHERE EMBOLIZATION 03/28/2022 IR EMBOLIZATION Left 04/18/2021 IMAGING SUPERVISION & INTERPRETATION TRANSCATHETER THERAPY, EMBOLIZATION performed by Kevin Lim DO at OR [facility] IR EMBOLIZATION ARTERIAL NON HEMMORHAGE Left 02/21/2022 EMBOLIZATION ARTERIAL; SUPERVISION & INTERPRETATION performed by Kevin Lim DO at OR [facility] IR EMBOLIZATION ARTERIAL NON HEMMORHAGE Left 06/05/2022 EMBOLIZATION ARTERIAL; SUPERVISION & INTERPRETATION performed by Kevin Lim DO at OR [facility] IR VENOUS TIPS 10/07/2020 REMOVAL OF TONSILS, UNDER AGE 12 age 6-7 Tonsils Removal,<12 Y/O SIGMOIDOSCOPY, DIAGNOSTIC 04/12/2022 radiation proctitis, diverticulosis / [facility] TIPS, REVISION N/A 01/24/2021 REVISION TRANSVENOUS INTRAHEPATIC PORTOSYSTEMIC SHUNT performed by Kevin Lim DO at OR [facility] TIPS, REVISION Right 10/19/2022 REVISION TRANSVENOUS INTRAHEPATIC PORTOSYSTEMIC SHUNT performed by Howie Valdovinos MD at OR [facility] TIPS, REVISION Right 02/20/2023 REVISION TRANSVENOUS INTRAHEPATIC PORTOSYSTEMIC SHUNT performed by Kevin Lim DO at OR [facility] Review of patient's allergies indicates: No Known Allergies Family History Problem Relation Name Age of Onset Lung cancer Mother smoker Cancer Father colon, at 63 Musculo-skeletal Disorder Father aspvd in father and brothers Psoriasis Father Alcohol and Other Disorders Associated Father Other (Other) Father denies any family history of skin diseases or skin cancer No Known Problems Sister Laura Cancer Brother Rishabh pancreatic Alcohol and Other Disorders Associated Brother Peter Heart disease Brother Peter Other (Other) Brother Peter Agent Barron exposure Neurological Disorder Daughter Joan epilepsy No Known Problems Daughter Kaylie Cervical Cancer Daughter Kriss Uterine cancer Daughter Kriss Thyroid cancer Daughter Kriss Cancer Grandmother (Paternal) unkown, in 80s Diabetes Other Hypertension Other Heart Disorder Other Stroke Other Family Status Relation Status Mo Fa Sis Alive Sis Sis Bro Bro Alive Nivia Nivia Alive Nivia Alive Nivia Alive Nivia Alive Son Alive PGMA (Not Specified) Other (Not Specified) Other (Not Specified) Other (Not Specified) Other (Not Specified) 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 (Adult - for ages 18 years and over): No Does your family have trouble paying for medicine? (Household - for ages 0-17 years): Not on file Food Insecurity: No Food Insecurity (08/14/2023) Food Insecurity Do you need food for this week? (Adult - for ages 18 years and over): No Are you able to get enough food for your family? (Household - for ages 0-17 years): Not on file Does your family need food this week? (Household - for ages 0-17 years): Not on file Do you always have enough food for your family? (Household - for ages 0-17 years): Not on file Transportation Needs: No Transportation Needs (08/14/2023) Transportation Needs Do you have trouble getting a ride to medical visits or work? (Adult - for ages 18 years and over):Never True Does your family have a hard time getting a ride to doctors visits? (Household - for ages 0-17 years): Not on file Has lack of transportation kept you from medical appointments, meetings, work, or from getting things needed for daily living? Check all that apply. (Adult - for ages 18 years and over): Not on file Do you (or your family) have trouble finding or paying for a ride (transportation)? (Household - for ages 0-17 years): Not on file Social Connections: Socially Integrated (08/14/2023) Social Connections How often do you feel lonely or isolated from those around you? (Adult - for ages 18 years and over): Never Housing Stability: Low Risk (08/14/2023) Housing Stability Do you currently live in a custodial or have no steady place to sleep at night? (Adult - for ages 18 years and over): No Do you think you are at risk of becoming homeless? (Adult - for ages 18 years and over): No Does your family worry about paying for your home or becoming homeless? (Household - for ages 0-17 years): Not on file Are you homeless or worried that you might be in the future? (Adult - for ages 18 years and over): Not on file Are you (or your family) homeless or worried that you might be in the future? (Household - for ages0-17 years): Not on file Review of Systems: As per HPI all other ROS negative. Wt Readings from Last 3 Encounters: 05/19/24 84.8 kg (187 lb) 05/12/24 86.6 kg (190 lb 14.7 oz) 04/07/24 83.6 kg (184 lb 4.8 oz) Results for orders placed or performed in visit on 05/18/24 CBC Result Value Ref Range WBC 2.92 (L) 4.00 - 10.80 K/uL RBC 2.50 4.50 - 5.25 M/uL HGB 8.0 (L) 14.0 - 16.8 g/dL HCT 25.4 (L) 40.0 - 48.4 % MCV 101.6 82.0 - 99.5 fL MCH 32.0 27.0 - 34.0 pg MCHC 31.5 32.0 - 36.0 g/dL RDW 19.5 11.5 - 15.5 % PLT 82 (L) 140 - 400 K/uL MPV 12.3 6.6 - 11.1 fL DIFFERENTIAL, AUTOMATED Result Value Ref Range WBC 2.92 (L) 4.00 - 10.80 K/uL Neutrophils % 68.4 40.0 - 75.0 % Lymphocytes % 15.8 (L) 18.0 - 42.0 % Monocytes % 7.2 1.0 - 11.0 % Eosinophils % 7.9 (H) 0.0 - 6.0 % Basophils % 0.7 0.0 - 2.0 % Absolute Neutrophils 2.00 1.80 - 7.70 K/uL Absolute Lymphocytes 0.46 (L) 1.00 - 4.80 K/ul Absolute Monocytes 0.21 0.00 - 1.10 K/uL Absolute Eosinophils 0.23 0.00 - 0.70 K/uL Absolute Basophils 0.02 0.00 - 0.20 K/uL DIFFERENTIAL, TECHNOLOGIST REVIEW Result Value Ref Range nRBCs *Note: Due to a large number of results and/or encounters for the requested time period, some results have not been displayed. A complete set of results can be found in Results Review. OBJECTIVE: Physical Exam: BP 132/60 | Pulse 79 | Temp 36.8 C (98.2 F) | Resp 18 | Ht 1.778 m (5' 10") | Wt 84.8 kg (187 lb) | SpO2 98% | BMI 26.83 kg/m | BSA 2.05 m General: alert, healthy, and no distress Heart: regular rate & rhythm and pos WINTER Lungs: lungs clear to auscultation Abdomen: pos distended Extremities: no joint deformities, effusion, or inflammation, 2+ pitting edema bilateral LE Gross hematuria (Primary) - ALBUMIN / CREATININE RATIO, URINE; Future; Expected date: 05/19/2024 - CBC WITH WBC DIFFERENTIAL; Future; Expected date: 05/19/2024 - RENAL FUNCTION PANEL; Future; Expected date: 05/19/2024 Hepatic cirrhosis, unspecified hepatic cirrhosis type, unspecified whether ascites present (HCC) - ALBUMIN / CREATININE RATIO, URINE; Future; Expected date: 05/19/2024 - CBC WITH WBC DIFFERENTIAL; Future; Expected date: 05/19/2024 - RENAL FUNCTION PANEL; Future; Expected date: 05/19/2024 Liver cell carcinoma (HCC) - ALBUMIN / CREATININE RATIO, URINE; Future; Expected date: 05/19/2024 - CBC WITH WBC DIFFERENTIAL; Future; Expected date: 05/19/2024 - RENAL FUNCTION PANEL; Future; Expected date: 05/19/2024 Chronic anemia - ALBUMIN / CREATININE RATIO, URINE; Future; Expected date: 05/19/2024 - CBC WITH WBC DIFFERENTIAL; Future; Expected date: 05/19/2024 - RENAL FUNCTION PANEL; Future; Expected date: 05/19/2024 - NEPHROLOGY REFERRAL OP Cirrhosis of liver with ascites, unspecified hepatic cirrhosis type (HCC) - ALBUMIN / CREATININE RATIO, URINE; Future; Expected date: 05/19/2024 - CBC WITH WBC DIFFERENTIAL; Future; Expected date: 05/19/2024 - RENAL FUNCTION PANEL; Future; Expected date: 05/19/2024 - CARDIOLOGY REFERRAL OP FOFANA (nonalcoholic steatohepatitis) - ALBUMIN / CREATININE RATIO, URINE; Future; Expected date: 05/19/2024 - CBC WITH WBC DIFFERENTIAL; Future; Expected date: 05/19/2024 - RENAL FUNCTION PANEL; Future; Expected date: 05/19/2024 Hospital discharge follow-up Diastolic dysfunction - CARDIOLOGY REFERRAL OP Dyslipidemia, goal LDL below 100 - CARDIOLOGY REFERRAL OP Pulmonary hypertension (HCC) - CARDIOLOGY REFERRAL OP - NEPHROLOGY REFERRAL OP Chronic kidney disease, stage 3a (HCC) - NEPHROLOGY REFERRAL OP Peripheral edema - NEPHROLOGY REFERRAL OP Follow-up: Return in about 1 month (around 06/18/2024), or if symptoms worsen or fail to improve. | Check-out note: Please make note to do DM eye exam august with ensor Thank you Kristen Vences DO documented in this encounter Miscellaneous Notes * Addendum Note - Arlene Damon LPN - 05/19/2024 10:18 AM EDTAddended by: ARLENE DAMON on: 05/19/2024 10:18 AM Modules accepted: Orders documented in this encounter Plan of Treatment Upcoming Encounters Date Type Department Care Team (Late st Contact Info) Description 2024 2:30 PM EDT Office Visit UrologLynnette Solares Karla Khanna [address] [id number] Frank Peraza MD [address] [place] [address] 05/26/2024 7:05 AM EDT Laboratory [facility] [address] [place] [address] [facility] [address] [facility] [place] [address] 06/02/2024 7:00 AM EDT Laboratory [facility] [address] [place] [address] [facility] [address] [place] [address] 06/09/2024 7:00 AM EDT Laboratory [facility] [address] [place] [address] [facility] [address] [facility] [place] [address] 06/16/2024 7:00 AM EDT Laboratory [facility] [address] [place], [place] [address] [facility] [address] [place] [address] 06/23/2024 7:00 AM EDT Laboratory [facility] [address] [place], [place] [address] [facility] [address] [place] [address] 06/23/2024 2:00 PM EDT Office Visit Hematology/Oncology [facility] [place] [address] [facility] [place] [id number] Ayaka Tatum CRNP [address] [place] [address] [place] [address] 06/30/2024 7:00 AM EDT Laboratory Lab Mobile Phlebotomy [facility] [address] [employer] [place], [place] [address] [facility], [facility] [address] [place] [address] 07/07/2024 7:00 AM EDT Laboratory Lab Mobile Phlebotomy [facility] [address] [place] [address] [facility], [facility] [address] [facility] [place] [address] 07/09/2024 9:40 AM EDT Office Visit Family Practice [facility] 132 [facility] [place] [address] Kristen Vences DO [facility] [place] [address] 07/14/2024 7:00 AM EDT Laboratory Lab Mobile Phlebotomy [facility] [address] [employer] [place] [place] [address] Mv[facility], [facility] [address] [place] [address] 07/21/2024 7:00 AM EDT Laboratory Lab Mobile Phlebotomy [facility] [address] [facility] [place] [address] [facility], [facility] [address] [facility] [place], [place] [address] 07/23/2024 9:30 AM EDT Office Visit Cardiology, [facility] 132 [facility] [place] [address] Carlee Salazar CRNP 132 [facility] [place] [address] 07/28/2024 7:00 AM EDT Laboratory Lab Mobile Phlebotomy [facility] [address] [facility] [place] [address] [facility] [address] [facility] [place] [address] 07/28/2024 2:00 PM EDT Office Visit Nephrology, [facility] [address] [place], [place] [address] Franki Herbert MD [address] [place], [place] [address] 08/04/2024 7:00 AM EDT Laboratory Lab Mobile Phlebotomy [facility] [address] [facility] [place], [place] [address] [facility], [facility] [address] [facility] [place], [place] [address] 08/11/2024 7:00 AM EDT Laboratory Lab Mobile Phlebotomy [facility] [address] [facility] [place] [address] M[facility], [facility] [address] [facility] [place] [address] 08/18/2024 7:00 AM EDT Laboratory Lab Mobile Phlebotomy [facility] [address] [employer] [place], [place] [address] [facility], [facility] [address] [facility] [place], [place] [address] 08/20/2024 10:15 AM EDT Office Visit Ophthalmology, [facility] 132 [facility] [place] [address] Cody Gonzalez, DO [address] [place] [address] 08/25/2024 7:00 AM EDT Laboratory Lab Mobile Phlebotomy [facility] [address] [facility] [place] [address] [facility], [facility] [address] [facility] [place], [place] [address] 09/01/2024 7:00 AM EDT Laboratory Lab Mobile Phlebotomy [facility] [address] [facility] [place] [address] [facility] [address] [facility] [place], [place] [address] 09/08/2024 7:00 AM EDT Laboratory Lab Mobile Phlebotomy [facility] [address] [facility] [place], [place] [address] [facility], [facility] [address] [facility] [place] [address] 09/15/2024 7:00 AM EDT Laboratory Lab Mobile Phlebotomy [facility] [address] [facility] [place] [address] [facility], [facility] [address] [facility] [place] [address] 09/22/2024 7:00 AM EDT Laboratory Lab Mobile Phlebotomy [facility] [address] [facility] [place] [address] [facility] [address] [facility] [place] [address] 09/29/2024 7:00 AM EDT Laboratory Lab Mobile Phlebotomy [facility] [address] [facility] [place], [place] [address] [facility], [facility] [address] [facility] [place] [address] 10/06/2024 7:00 AM EST Laboratory Lab Mobile Phlebotomy [facility] [address] [employer] [place], [place] [address] [facility] [address] [place] [address] 10/12/2024 10:20 AM EST Office Visit Pulmonary Medicine, [facility] 132 [facility] [place] [address] Jordan Stanley MD [address] [place] [address] 10/13/2024 7:00 AM EST Laboratory Lab Mobile Phlebotomy [facility] [address] [place] [address] M[facility], [facility] [address] [place] [address] 10/20/2024 7:00 AM EST Laboratory Lab Mobile Phlebotomy [facility] [address] [employer] [place], [place] [address] [facility] [address] [facility] [place] [address] 10/27/2024 7:00 AM EST Laboratory Lab Mobile Phlebotomy [facility] [address] [facility] [place], [place] [address] [facility] [address] [facility] [place], [place] [address] 10/30/2024 10:00 AM EST Office Visit Urology Lynnette Fitzpatrick [address] [place] [address] [place] [address] Frank Peraza MD [address] [place] [address] [place] [address] Scheduled Orders Name Type Priority Associated Diagnoses Orde r Schedule ALBUMIN / CREATININE RATIO, URINE Lab Routine Gross hematuria Hepatic cirrhosis, unspecified hepatic cirrhosis type, unspecified whether ascites present (HCC) Liver cell carcinoma (HCC) Chronic anemia Cirrhosis of liver with ascites, unspecified hepatic cirrhosis type (HCC) FOFANA (nonalcoholic steatohepatitis) Expected: 05/19/2024 (Approximate), Expires: 05/19/2025 CBC WITH WBC DIFFERENTIAL Lab Routine Gross hematuria Hepatic cirrhosis, unspecified hepatic cirrhosis type, unspecified whether ascites present (HCC) Liver cell carcinoma (HCC) Chronic anemia Cirrhosis of liver with ascites, unspecified hepatic cirrhosis type (HCC) FOFANA (nonalcoholic steatohepatitis) Expected: 05/19/2024 (Approximate), Expires: 05/19/2025 RENAL FUNCTION PANEL Lab Routine Gross hematuria Hepatic cirrhosis, unspecified hepatic cirrhosis type, unspecified whether ascites present (HCC) Liver cell carcinoma (HCC) Chronic anemia Cirrhosis of liver with ascites, unspecified hepatic cirrhosis type (HCC) FOFANA (nonalcoholic steatohepatitis) Expected: 05/19/2024 (Approximate), Expires: 05/19/2025 Scheduled Procedures Name Priority Associated Diagnoses Date/Ti me COLONOSCOPY FLEXIBLE PROXIMAL DIAGNOSTIC Recall History of colonic polyps Portal hypertensive gastropathy (HCC) ESOPHAGOGASTRODUODENOSCOPY ( EGD), FLEXIBLE, TRANSORAL, DIAGNOSTIC Recall History of colonic polyps Portal hypertensive gastropathy (HCC) Scheduled Referrals Name Type Priority Associated Diagnoses Orde r Schedule CARDIOLOGY REFERRAL OP Referral Within 10 days (routine) Cirrhosis of liver with ascites, unspecified hepatic cirrhosis type (HCC) Diastolic dysfunction Dyslipidemia, goal LDL below 100 Pulmonary hypertension (HCC) Ordered: 05/19/2024 NEPHROLOGY REFERRAL OP Referral Within 10 days (routine) Chronic anemia Pulmonary hypertension (HCC) Chronic kidney disease, stage 3a (HCC) Peripheral edema Ordered: 05/19/2024 Health Maintenance Due Date Last Done Comments Verouard 1995 Fecal Occult Blood Test 05/08/2015 05/08/2014 [...] Additional history exists CKD PHOS USE SMARTSET 78231 05/08/202506/2024, 04/07/2024, 02/26/2024, Additional history exists CKD HGB USE SMARTSET 31481 05/18/202505/18, 05/18/2024, 05/12/2024, Additional history exists Diabetic [...] this encounter Medical Devices Implanted Type Area Fish Smoker Device Identifier Shelf Expiration Date Model / Serial / Lot Clareon Iol Aspheric Hydrophobic Acrylic Iol Implanted:Qty: 1 on 04/23/2023 by Cody Gonzalez DO at OR [facility] Lens Left: Eye 11/12/2025 CNA0T0 / [id number] / Viatorr Tips Endoprosthesis 8-10 Mm X 8cm / 2cm Implanted:Qty: 1 on 10/07/2020 by Go Alvarado MD at [facility] Right: Abdomen 03/03/2023 [id number] / / [id number] Description:Viatorr TIPS End oprosthesis 8-10 mm x 8cm / 2cm, Manufactored by [employer] Syr Pf 2ml Embospheres 100-300 - [id number] Implanted:Qty: 1 on 04/18/2021 by Kevin Lim DO at OR [facility] Left: Abdomen [employer] [id number] 11/25/2023 S220GH / / [id number] Lipiodol Injection - [id number] Implanted:Qty: 1 on 03/28/2022 at [facility] [employer] 03/01/2023 [id number] 01-2 / / [id number] Syr Pf 2ml [facility] 100-300 - [id number] Implanted:Qty: 1 on 03/28/2022 at [facility] [employer] [id number] 08/31/2024 S220GH / / [id number] Clareon Iol Aspheric Hydrophobic Acrylic Iol Implanted:Qty: 1 on 04/02/2023 by Cody Gonzalez DO at [facility] Right: Eye JAZMIN 11/12/2025 CNA0T0 / [id number] / documented as of this encounter Visit Diagnoses Diagnosis Type 2 diabetes mellitus with hemoglobin A1c goal of less than 7.0% (HCC)- Primary Gross hematuria Hepatic cirrhosis, unspecified hepatic cirrhosis type, unspecified whether ascites present (HCC) Liver cell carcinoma (HCC) Malignant neoplasm of liver, primary Chronic anemia Anemia, unspecified Cirrhosis of liver with ascites, unspecified hepatic cirrhosis type (HCC) FOFANA (nonalcoholic steatohepatitis) Other chronic nonalcoholic liver disease Hospital discharge follow-up Other follow-up examination Diastolic dysfunction Heart disease, unspecified Dyslipidemia, goal LDL below 100 Other and unspecified hyperlipidemia Pulmonary hypertension (HCC) Other chronic pulmonary heart diseases Chronic kidney disease, stage 3a (HCC) Peripheral edema Edema documented in this encounter Advance Directives Documents on File Type Date Recorded Patient Handle Maker Expl anation Advance Directives and Living Will 12/11/2022 ADVANCE DIRECTIVE / LIVING WILL LIVING WILL Power of Barbed Wire Machine Operator 12/11/2022 POWER OF A TTORNEY * Full [...] Discussed due to patient's condition Care Teams Tumble Tailstock Turret Lathe Operator Relationship Specialty Start Date End Date Francisco Cisse MD [address] [place] [address] PCP - General Internal Medicine 09/04/21 documented as of this encounter
--- OUTSIDE RECORDS SUMMARY | 2024-05-20 09:08 | External Medical Summary | Summary of Care ---
Author Name Unknown Organization [facility] Address [address] [facility] [address] Phone [phone] Care Team Providers Care Cartography/Mapping Technician Name Role Phone Francisco Cisse MD Primary Care Provider + Reason for Referral * Evaluate & Treat - Unlimited Visits (Within 10 days (routine)) - Authorized Specialty Diagnoses / Procedures Referred By Chacho fleming Referred To Contact Nephrology Diagnoses Chronic anemia Pulmonary hypertension (HCC) Chronic kidney disease, stage 3a (HCC) Peripheral edema Kristen Vences DO [address] [place] [address] Referral ID Status Reason Start Date Expiration Date Visits Requested Visits Authorized [id number] Authorized Specialty Services Required 05/19/2024 999 999 [...] 100 Pulmonary hypertension (HCC) Kristen Vences DO [address] [place] [address] Referral ID Status Reason Start Date Expiration Date Visits Requested Visits Authorized [id number] Authorized Specialty Services Required 05/19/2024 999 999 [...] Description 05/19/2024 9:20 AM EDT Office Visit [facility] [address] [place] [address] Kristen Vences DO [address] [place] [address] Type 2 diabetes mellitus with hemoglobin A1c [...] mRNA, LNP-s, No Pre serve, 2-Dose Series (Kirusa) 03/08/2021,02/15/2021 HepA Inact/HepB Recomb>=18yrs old 12/04/2019,04/2019,05/20/2019 11/19/2019 PPD 06/18/2017, 3,01/09/2012,06/2011 Pneumococcal Conjugate Vacc, 13 Valent (Prevnar) 05/01/2017 Pneumococcal Polysaccharide PPV23 (Pneumovax) 08/28/2022,10/25/2015,07/14/2012 Season Influenza, Quad, PF, Adjuvanted, 65+ Yrs, IM (FLUAD) 10/07/2020(Deferred: Patient Refused - pt says he already had his shot last month at [facility]y [facility]ons and Mckinley Cobian [...] of this encounter Progress Notes * Arlene Damon LPN - 05/19/2024 10:17 AM EDT Socks [...] renal function Assess fluid volume status; holding CUFF MATCHER lasix 2/2 renal function Follow up with [...] pancytopenia who presents as a transfer from [facility] for hematuria. The patient has had chronic hematuria resulting in multiple readmissions. On 05/03/24 he presented [facility] with chest pain and SOB and was found to have ABLA (hgb 6.1) and LUCRETIA (Cr 1.6 from baseline 1.2) due to hematuria with clots. He was seen by urology and started on continuous bladder irrigation and received multiple transfusions. Despite this, he has had ongoing hematuria with worsening anemia.Urology recommended [place] [facility] [place] for consideration of b/l [...] Current Outpatient Medications Medication Sig Dispense Refill Filement In Vitro Strip (Glucose Blood) Use to [...] performed by Cody Gonzalez DO at OR [facility] CATARACT SURGERY,COMPLEX Left 04/23/2023 LEFT EXTRACAPSULAR CATARACT REMOVAL COMPLEX WITH IOL performed by Cody Gonzalez DO at OR [facility] COLONOSCOPY 08/27/2005 lock haven/hemorrhoids non internal COLONOSCOPY, DIAGNOSTIC (RECTUM) 04/16/2013 COLONOSCOPY FLEXIBLE PROXIMAL DIAGNOSTIC performed by Salvador Lopez MD at ENDOSCOPY [facility], adenomatous polyps repeat colonoscopy in 3 years COLONOSCOPY, DIAGNOSTIC (RECTUM) 05/03/2016 adenomatous polyps, diverticulosis, repeat 5 yrs/COLONOSCOPY FLEXIBLE PROXIMAL DIAGNOSTIC performedby Salvador Lopez MD at ENDOSCOPY [facility] COLONOSCOPY, DIAGNOSTIC (RECTUM) 07/19/2020 adenomatous & hyperplastic polyps, diverticulosis, repeat 3 yrs / [facility] COLONOSCOPY, DIAGNOSTIC (RECTUM) 11/30/2021 mild XRT proctitis, diverticulosis / COLONOSCOPY FLEXIBLE PROXIMAL DIAGNOSTIC performed by Barbara March DO at ENDOSCOPY [facility] COLONOSCOPY, DIAGNOSTIC (RECTUM) 02/01/2022 Mild XRT proctitis / COLONOSCOPY FLEXIBLE PROXIMAL DIAGNOSTIC performed by Barbara March DO at ENDOSCOPY [facility] COLONOSCOPY, DIAGNOSTIC (RECTUM) N/A 11/07/2022 poor prep/diverticulosis sigmoid colon/rectal angioectasias consistent with radiation proctopathy/Colonoscopy/[place] COLONOSCOPY, DIAGNOSTIC (RECTUM) N/A 08/09/2023 poor prep/moderate diverticulosis/hemorrhoids/biopsies show adenomatous and hyperplastic polyps/recall 1 years/Colonoscopy/[place] CT ABDOMEN W IV AND W ORAL CONTRAST 01/10/2010 CYSTOSCOPY, REMOVAL OF CLOTS N/A 05/09/2024 CYSTOURETHROSCOPY WITH IRRIGATION AND EVACUATION OF CLOTS performed by Luis Whitehead MDa [place] [facility] CYSTOSCOPY/TREAT LGE BLADDER TUMOR N/A 05/09/2024 CYSTOURETHROSCOPY WITH FULGURATION LARGE BLADDER TUMOR performed by Luis Whitehead MD atOR [facility] CYSTOSCOPY/TREAT MED BLADDER TUMOR N/A 01/30/2024 CYSTOURETHROSCOPY WITH FULGURATION MEDIUM BLADDER TUMOR performed by Frank Peraza MD at OR [facility] EGD, FLEXIBLE, DIAGNOSTIC 07/22/2014 GE varices oozing blood, gastric polyp/ESOPHAGOGASTRODUODENOSCOPY (EGD), FLEXIBLE, TRANSORAL, DIAGNOSTIC performed by Juaquin Arrington MD at ENDOSCOPY [facility] EGD, FLEXIBLE, DIAGNOSTIC 07/23/2014 ESOPHAGOGASTRODUODENOSCOPY (EGD), FLEXIBLE, TRANSORAL, DIAGNOSTIC performed by Sophie Merino MD at [place] [facility] EGD, FLEXIBLE, DIAGNOSTIC 06/02/2019 eso & gastric varices, gastric polyps/ESOPHAGOGASTRODUODENOSCOPY (EGD), FLEXIBLE, TRANSORAL, DIAGNOSTIC performed by Salvador Lopez MD at ENDOSCOPY [facility] EGD, FLEXIBLE, DIAGNOSTIC 03/25/2020 portal hypertensive gastropathy, esophageal varices / INPT [facility] EGD, FLEXIBLE, DIAGNOSTIC 07/19/2020 eso varices, portal hypertensive gastropathy, repeat 3 mo / [facility] EGD, FLEXIBLE, DIAGNOSTIC 10/25/2020 Portal hypertensive gastropathy, eso varices / [facility] EGD, FLEXIBLE, DIAGNOSTIC 08/202222 Grade I esophageal varices / [facility] EGD, FLEXIBLE, DIAGNOSTIC N/A 09/11/2022 grade II esophageal varices/gastric antral vascular ectasia, treated with APC/repeat 3 months/EGD/AL EGD, FLEXIBLE, DIAGNOSTIC N/A 11/07/2022 grade III esophageal varices, banded/gastric antral vascular ectasia/repeat 2 months/EGD/[place] EGD, FLEXIBLE, DIAGNOSTIC N/A 02/01/2023 [facility]< egd. / single G2 varix, banded and varices eradicated / no specimens collected / egd in 1 to 2 months / EGD, FLEXIBLE, DIAGNOSTIC N/A 08/09/2023 portal hypertensive gastropathy/repeat 1 year/EGD/[place] EGD, FLEXIBLE, DIAGNOSTIC 05/22/2023 GAVE, repeat 4-6 wks / [facility] IR CANCER THERASPHERE EMBOLIZATION 03/28/2022 IR EMBOLIZATION Left 04/18/2021 IMAGING SUPERVISION & INTERPRETATION TRANSCATHETER THERAPY, EMBOLIZATION performed by Kevin Lim DO at OR [facility] IR EMBOLIZATION ARTERIAL NON HEMMORHAGE Left 02/21/2022 EMBOLIZATION ARTERIAL; SUPERVISION & INTERPRETATION performed by Kevin Lim DO at OR [facility] IR EMBOLIZATION ARTERIAL NON HEMMORHAGE Left 06/05/2022 EMBOLIZATION ARTERIAL; SUPERVISION & INTERPRETATION performed by Kevin Lim DO at OR [facility] IR VENOUS TIPS 10/07/2020 REMOVAL OF TONSILS, UNDER AGE 12 age 6-7 Tonsils Removal,<12 Y/O SIGMOIDOSCOPY, DIAGNOSTIC 04/12/2022 radiation proctitis, diverticulosis / [facility] TIPS, REVISION N/A 01/24/2021 REVISION TRANSVENOUS INTRAHEPATIC PORTOSYSTEMIC SHUNT performed by Kevin Lim DO at OR [facility] TIPS, REVISION Right 10/19/2022 REVISION TRANSVENOUS INTRAHEPATIC PORTOSYSTEMIC SHUNT performed by Howie Valdovinos MD at OR [facility] TIPS, REVISION Right 02/20/2023 REVISION TRANSVENOUS INTRAHEPATIC PORTOSYSTEMIC SHUNT performed by Kevin Lim DO at OR [facility] Review of patient's allergies indicates: No Known [...] Brother Peter Other (Other) Brother Peter Agent Desdemona exposure Neurological Disorder Daughter Joan epilepsy No [...] No Self-Exams Not Asked 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, 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 2 [...] Stability Do you currently live in a mcfp or have no steady place to sleep [...] [place] [address] [place] [address] Frank Peraza MD [address] [place] [address] 05/26/2024 7:05 AM EDT Laboratory [facility] [address] [place] [address] Mvmg, Gml [facility] Home Draw [address] [facility] [place] [address] 06/02/2024 7:00 AM EDT Laboratory [facility] [address] [place] [address] Mvmg, [facility] Draw [address] [place] [address] 06/09/2024 7:00 AM EDT Laboratory [facility] Phlebotomy [facility] [address] [place] [address] Mvmg, Gml [facility] Home Draw [address] [facility] [place] [address] 06/16/2024 7:00 AM EDT Laboratory [facility] Phlebotomy [facility] [address] [place], [place] [address] Mvmg, Gml [facility] Home Draw [address] [place] [address] 06/23/2024 7:00 AM EDT Laboratory [facility] Phlebotomy [facility] [address] [place], [place] [address] Mvmg, Gml Mobile Home Draw [address] [place] [address] 06/23/2024 2:00 PM EDT Office Visit Hematology/Oncology [facility] [place] [address] [place] [phone] Ayaka Tatum CRNP [address] [place] [address] [place] [address] 06/30/2024 7:00 AM EDT Laboratory [facility] Phlebotomy [facility] [address] [place], [place] [address] Mvmg, Gml Mobile Home Draw [address] [place] [address] 07/07/2024 7:00 AM EDT Laboratory Lab [facility] Phlebotomy [facility] [address] [place] [address] Mvmg, Gml Mobile Home Draw [address] [facility] [place] [address] 07/14/2024 7:00 AM EDT Laboratory Lab Mobile Phlebotomy [facility] [address] [place] [address] Mvmg, Gml Mobile Home Draw [address] [facility] [place] [address] 07/21/2024 7:00 AM EDT Laboratory Lab Mobile Phlebotomy [facility] [address] [place] [address] Mvmg, Gml Mobile Home Draw [address] [facility] [place] [address] 07/28/2024 7:00 AM EDT Laboratory Lab Mobile Phlebotomy [facility] [address] [place] [address] Mvmg, Gml Mobile Home Draw [address] [facility] [place] [address] 08/04/2024 7:00 AM EDT Laboratory Lab Mobile Phlebotomy [facility] [address] [place] [address] Mvmg, Gml Mobile Home Draw [address] [facility] [place] [address] 08/11/2024 7:00 AM EDT Laboratory Lab [facility] Phlebotomy [facility] [address] [place] [address] Mvmg, Gml Mobile Home Draw [address] [facility] [place] [address] 08/18/2024 7:00 AM EDT Laboratory Lab Mobile Phlebotomy [facility] [address] [place] [address] Mvmg, Gml Mobile Home Draw [address] [facility] [place] [address] 08/20/2024 10:15 AM EDT Office Visit Ophthalmology, [facility] [address] [place] [address] Cody Gonzalez, DO [address] [facility] [place] [address] 08/25/2024 7:00 AM EDT Laboratory Lab Mobile Phlebotomy [facility] [address] [facility], [place] [address] Mvmg, Gml Mobile Home Draw [address] [facility], [place] [address] 09/01/2024 7:00 AM EDT Laboratory Lab Mobile Phlebotomy [facility] [address] [facility], [place] [address] Mvmg, Gml Mobile Home Draw [address] [facility], [place] [address] 09/08/2024 7:00 AM EDT Laboratory Lab [facility] Phlebotomy [facility] [address] [facility], [place] [address] Mvmg, Gml Mobile Home Draw [address] [facility], [place] [address] 09/15/2024 7:00 AM EDT Laboratory Lab [facility] Phlebotomy [facility] [address] [facility], [place] [address] Mvmg, Gml Mobile Home Draw [address] [facility], [place] [address] 09/22/2024 7:00 AM EDT Laboratory Lab Mobile Phlebotomy [facility] [address] [facility], [place] [address] Mvmg, Gml Mobile Home Draw [address] [place] [address] 09/29/2024 7:00 AM EDT Laboratory Lab [facility] Phlebotomy [facility] [address] [facility], [place] [address] Mvmg, Gml Mobile Home Draw [address] [facility], [place] [address] 10/06/2024 7:00 AM EST Laboratory Lab [facility] Phlebotomy [facility] [address] [place] [address] Mvmg, Gml Mobile Home Draw [address] [place], [place] [address] 10/12/2024 10:20 AM EST Office Visit Pulmonary Medicine, [facility] [address] [place] [address] Jordan [facility] [address] [facility] [address] 10/13/2024 7:00 AM EST Laboratory Lab Mobile Phlebotomy [facility] [address] [facility], [place] [address] Mvmg, Gml Mobile Home Draw [address] [place], [place] [address] 10/20/2024 7:00 AM EST Laboratory Lab Mobile Phlebotomy [facility] [address] [place], [place] [address] Mvmg, Gml Mobile Home Draw [address] [place] [address] 10/27/2024 7:00 AM EST Laboratory Lab Mobile Phlebotomy [facility] [address] [place] [address] Mvmg, Gml Mobile Home Draw [address] [place] [address] 10/30/2024 10:00 AM EST Office Visit Urology Lynnette Fitzpatrick [address] [place] [address] Frank Peraza MD [address] [place] [address] Scheduled Orders Name Type Priority Associated Diagnoses [...] Additional history exists CKD PHOS USE SMARTSET 87529 05/08/2025 06/0 06/2024, 04/07/2024, 02/26/2024, Additional history exists CKD HGB USE SMARTSET 04162 05/18/202505/18, 05/18/2024, 05/12/2024, Additional history exists Diabetic [...] this encounter Medical Devices Implanted Type Area Oncology Rep Device Identifier Shelf Expiration Date Model / Serial / Lot Clareon Iol Aspheric Hydrophobic Acrylic Iol Implanted:Qty: 1 on 04/23/2023 by Cody Gonzalez DO at OR [facility] Lens Left: Eye 11/12/2025 [id number] / [id number] / Viatorr Tips Endoprosthesis 8-10 Mm X 8cm / 2cm Implanted:Qty: 1 on 10/07/2020 by Go Alvarado MD at [facility] [address] Right: Abdomen 03/03/2023 [id number] / / [id number] Description:Viatorr TIPS End oprosthesis 8-10 mm x 8cm / 2cm, Manufactored by [employer] Syr Pf 2ml Embospheres 100-300 - [id number] Implanted:Qty: 1 on 04/18/2021 by Kevin Lim DO at OR [facility] Left: Abdomen [employer] [id number] 11/25/2023 [id number] / / [id number] Lipiodol Injection - [id number] Implanted:Qty: 1 on 03/28/2022 at [facility] [address] [employer] 03/01/2023 [id number] / / [id number] Syr Pf 2ml Embospheres 100-300 - [id number] Implanted:Qty: 1 on 03/28/2022 at [facility] [address] [employer] [id number] 08/31/2024 S220GH / / [id number] Clareon Iol Aspheric Hydrophobic Acrylic Iol Implanted:Qty: 1 on 04/02/2023 by Cody Gonzalez DO at OR [facility] Right: Eye JAZMIN 11/12/2025 [id number] / [id number] / documented as of this encounter [...] on File Type Date Recorded 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
--- OUTSIDE RECORDS SUMMARY | 2024-05-20 09:08 | External Medical Summary ---
Author Name Unknown Address Unknown Organization [id number]:[facility] - [address] [place] [address] Laboratory Report Ordering Provider Test Date Status CHELSEY BISWAS 05/18/2024 09:45:00 Final Observation Date Value Abnormality Reference (Units ) Status Nucleated erythrocytes/100 leukocytes [Ratio] in Blood by Automated count 05/18/2024 09:45:00 Final Performing Location [facility] 0 [address] [place] [address]
--- OUTSIDE RECORDS SUMMARY | 2024-05-20 09:08 | External Medical Summary ---
Author Name Unknown Address Unknown Organization K0G:[facility] - [address] [place] [address] Laboratory Report Ordering Provider Test Date Status CHELSEY BISWAS 05/18/2024 09:45:00 Final Observation Date Value Abnormality Reference (Units ) Status WBC, Total 05/18/2024 09:45:00 2.92 Below low normal 4. 00-10.80 (K/uL) Final RBC 05/18/2024 09:45:00 2.50 4.50-5.25 (M/uL) Final Hemoglobin 05/18/2024 09:45:00 8.0 Below low normal 14 .0-16.8 (g/dL) Final HCT 05/18/2024 09:45:00 25.4 Below low normal 40. 0-48.4 (%) Final MCV 05/18/2024 09:45:00 101.6 82.0-99.5 (fL) Final MCH 05/18/2024 09:45:00 32.0 27.0-34.0 (pg) Final MCHC 05/18/2024 09:45:00 31.5 32.0-36.0 (g/dL) Final RDW 05/18/2024 09:45:00 19.5 11.5-15.5 (%) Final Platelets 05/18/2024 09:45:00 82 Below low normal 140 -400 (K/uL) Final MPV 05/18/2024 09:45:00 12.3 6.6-11.1 ( fL) Final Performing Location [facility] - [address] [place] [address]
--- OUTSIDE RECORDS SUMMARY | 2024-05-20 09:08 | External Medical Summary ---
Author Name Unknown Address Unknown [facility] [address] [place] [address] Laboratory Report Ordering Provider Test Date Status CHELSEY BISWAS 05/18/2024 09:45:00 Final Observation Date Value Abnormality Reference (Units ) Status SYNC LEUKOCYTES IN BLOOD BY AUTOMATED COUNT 05/18/2024 09:45:00 2.92 Below low normal 4.00-10.80 (K/uL) Final Segs 05/18/2024 09:45:00 68.4 40.0-75.0 (%) Final Lymphs % 05/18/2024 09:45:00 15.8 Below low normal 18.0-42.0 (%) Final Monos 05/18/2024 09:45:00 7.2 1.0-11.0 (%) Final Eosinophils 05/18/2024 09:45:00 7.9 Above high normal 0.0-6.0 (%) Final Basos 05/18/2024 09:45:00 0.7 0.0-2.0 (%) Final Absolute Segs 05/18/2024 09:45:00 2.00 1.80-7.70 (K/uL) Final Lymphs, absolute 05/18/2024 09:45:00 0.46 Below low normal 1.00-4.80 (K/ul) Final Monos, Abs 05/18/2024 09:45:00 0.21 0.00-1.10 (K/uL) Final Eos, Abs 05/18/2024 09:45:00 0.23 0.00-0.70 (K/uL) Final Basos, Abs 05/18/2024 09:45:00 0.02 0.00-0.20 (K/uL) Final Performing Location [facility] - [address] [place] [address]
--- OUTSIDE RECORDS SUMMARY | 2024-05-20 09:08 | External Medical Summary ---
Author Name Unknown Address Unknown Organization [facility] [address] [place] [address] Laboratory Report Ordering Provider Test Date Status KANDI RINALDI 05/19/2024 10:43:07 Final Observation Date Value Abnormality Reference (Units ) Status WBC, Total 05/19/2024 10:43:07 3.29 Below low normal 4. 00-10.80 (K/uL) Final RBC 05/19/2024 10:43:07 2.63 4.50-5.25 (M/uL) Final Hemoglobin 05/19/2024 10:43:07 8.4 Below low normal 14 .0-16.8 (g/dL) Final HCT 05/19/2024 10:43:07 26.6 Below low normal 40. 0-48.4 (%) Final MCV 05/19/2024 10:43:07 101.1 82.0-99.5 (fL) Final MCH 05/19/2024 10:43:07 31.9 27.0-34.0 (pg) Final MCHC 05/19/2024 10:43:07 31.6 32.0-36.0 (g/dL) Final RDW 05/19/2024 10:43:07 19.3 11.5-15.5 (%) Final Platelets 05/19/2024 10:43:07 84 Below low normal 140 -400 (K/uL) Final MPV 05/19/2024 10:43:07 11.4 6.6-11.1 ( fL) Final Performing Location [facility] 0 - [address] [place] [address]
--- OUTSIDE RECORDS SUMMARY | 2024-05-20 09:08 | External Medical Summary ---
Author Name Unknown Address Unknown Organization K0G:[facility] - [address] [place] [address] Laboratory Report Ordering Provider Test Date Status KANDI RINALDI 05/19/2024 10:43:07 Final Observation Date Value Abnormality Reference (Units ) Status Nucleated erythrocytes/100 leukocytes [Ratio] in Blood by Automated count 05/19/2024 10:43:07 Final Performing Location [facility] 0 [address] [place] [address]
--- OUTSIDE RECORDS SUMMARY | 2024-05-20 09:08 | External Medical Summary ---
Author Name Unknown Address Unknown Organization K01:[facility]ATORY [facility] - [address] [place] [address] Laboratory Report Ordering Provider Test Date Status KANDI RINALDI 05/19/2024 10:46:01 Final Normal: <30 mg/g creatinine< br/>High: 30-300 mg/g creatinine
Very High: >300 mg/g creatinine
Nephrotic: >2200 mg/g creatinine Observation Date Value Abnormality Reference (Units ) Status Albumin, Urine 05/19/2024 10:46:01 122.13 (mg/dL) Final Creatinine, Urine 05/19/2024 10:46:01 144 (mg/dL) Final Albumin/Creatinine [Mass Ratio] in Urine 05/19/2024 10:46:01 848 Above high normal <30 (mg/g Creat) Final Performing Location [facility]ORY [facility] - [address] [place] [address]
--- OUTSIDE RECORDS SUMMARY | 2024-05-20 09:08 | External Medical Summary ---
Author Name Unknown Address Unknown Organization K01:LABORATORY [facility] - [address] [place] [address] [address] [place] [address] Laboratory Report Ordering Provider Test Date Status KANDI RINALDI 05/19/2024 10:43:07 Final Observation Date Value Abnormality Reference (Units ) Status BUN 05/19/2024 10:43:07 33 Above high normal 6-20 (mg/dL) Final Creatinine 05/19/2024 10:43:07 1.6 Above high normal 0.6-1.2 (mg/dL) Final Glomerular filtration rate/1.73 sq M.predicted [Volume Rate/Area] in Serum, Plasma or Blood by Creatinine-based formula (CKD-EPI) 05/19/2024 10:43:07 46 Below low normal >=60 (mL/min) Final eGFR is calculated based on the CKD-EPI 2020 equation Sodium 05/19/2024 10:43:07 143 135-146 (m mol/L) Final Potassium 05/19/2024 10:43:07 3.8 3.5-5.1 (m mol/L) Final Cl 05/19/2024 10:43:07 110 Above high normal 98 -107 (mmol/L) Final CO2 05/19/2024 10:43:07 20 Below low normal 22- 32 (mmol/L) Final Anion gap 05/19/2024 10:43:07 13 7-15 (mmol /L) Final Glucose 05/19/2024 10:43:07 221 Above high normal 70 -120 (mg/dL) Final Calcium 05/19/2024 10:43:07 8.0 Below low normal 8.4 -10.2 (mg/dL) Final Albumin 05/19/2024 10:43:07 2.4 Below low normal 3.8 -5.0 (g/dL) Final Phosphate 05/19/2024 10:43:07 3.3 2.5-4.8 (m g/dL) Final Performing Location LABORATORY [facility] - [address] [facility] [address]
--- OUTSIDE RECORDS SUMMARY | 2024-05-20 09:08 | External Medical Summary | Summary of Care ---
Author Name Unknown Organization [facility] Address [address] [place] [address] Phone [phone] Care Team Providers Care Second Baller Name Role Phone Francisco Cisse MD Primary Care Provider + Reason for Visit * Reason Comments Outpatient Testing Encounter Details Date Type Department Care Team (Late st Contact Info) Description 05/19/2024 11:10 AM EDT Laboratory Laboratory, [facility] [address] [facility] [place] [phone] TaverasFaby pratt [facility] [address] [facility] [place] [address] Gross hematuria; Hepatic cirrhosis, unspecified hepatic cirrhosis [...] mRNA, LNP-s, No Pre serve, 2-Dose Series ([place]) 03/08/2021,02/15/2021 HepA Inact/HepB Recomb>=18yrs old 12/04/2019,04/2019,05/20/2019 11/19/2019 [...] Fitzpatrick [address] [address] [address] Frank Peraza MD [address] [address] [address] 05/26/2024 7:05 AM EDT Laboratory Lab Mobile Phlebotomy [facility] [address] [facility] [place] [address] M[facility], [facility] [address] [place] [address] 06/02/2024 7:00 AM EDT Laboratory Lab Mobile Phlebotomy [facility] [address] [place], [place] [address] Mvmg, [facility] [address] [place] [address] 06/09/2024 7:00 AM EDT Laboratory Lab Mobile Phlebotomy [facility] [address] [place] [address] Mvmg, [facility] [address] [place] [address] 06/16/2024 7:00 AM EDT Laboratory Lab Mobile Phlebotomy [facility] [address] [place], [place] [address] Mvmg, G[facility] [address] [place] [address] 06/23/2024 7:00 AM EDT Laboratory Lab Mobile Phlebotomy [facility] [address] [place] [address] Mvmg, [facility] [address] [facility] [place], [place] [address] 06/23/2024 2:00 PM EDT Office Visit Hematology/Oncology [facility] [address] [facility] [place], [place] [phone] Ayaka Tatum CRNP [address] [place], [place] [address] [address] 06/30/2024 7:00 AM EDT Laboratory Lab Mobile Phlebotomy [facility] [address] [place], [place] [address] M[facility], [facility] [address] [facility] [place], [place] [address] 07/07/2024 7:00 AM EDT Laboratory Lab Mobile Phlebotomy [facility] [address] [place], [place] [address] Mvmg, Gml [facility] Draw [address] [place], [place] [address] 07/09/2024 9:40 AM EDT Office Visit Family Practice [facility] [address] [facility] [address] Kristen Vences DO [facility] [place] [address] 07/14/2024 7:00 AM EDT Laboratory Lab Mobile Phlebotomy [facility] [address] [place] [address] M[facility], [facility] [address] [place], [place] [address] 07/21/2024 7:00 AM EDT Laboratory Lab Mobile Phlebotomy [facility] [address] [place] [address] Mvmg, Gml [facility] Draw [address] [place], [place] [address] 07/23/2024 9:30 AM EDT Office Visit Cardiology, [facility] [place] [address] Carlee Salazar CRNP [facility] [address] 07/28/2024 7:00 AM EDT Laboratory Lab Mobile Phlebotomy [facility] [address] [place], [place] [address] Mvmg, G[facility] [address] [place], [place] [address] 07/28/2024 2:00 PM EDT Office Visit Nephrology, [facility] Blankenship [address] [place], [place] [address] Franki Herbert MD [address] [place], [place] [address] 08/04/2024 7:00 AM EDT Laboratory Lab Mobile Phlebotomy [facility] [address] [place] [address] Mvmg, [facility] [address] [facility] [place] [address] 08/11/2024 7:00 AM EDT Laboratory Lab Mobile Phlebotomy [facility] [address] [facility] [place] [address] Mvmg, [facility] [address] [facility] [place] [address] 08/18/2024 7:00 AM EDT Laboratory Lab Mobile Phlebotomy [facility] [address] [facility] [place] [address] Mvmg, [facility] [address] [facility] [place], [place] [address] 08/20/2024 10:15 AM EDT Office Visit Ophthalmology, [facility] 132 [facility] [place] [address] Cody Gonzalez, DO [address] [facility] [address] 08/25/2024 7:00 AM EDT Laboratory Lab Mobile Phlebotomy [facility] [address] [facility] [place], [place] [address] Mvmg, [facility] [address] [facility] [place], [place] [address] 09/01/2024 7:00 AM EDT Laboratory Lab Mobile Phlebotomy [facility] [address] [facility] [place], [place] [address] Mvmg, Gml [facility] Draw [address] [facility] [place] [address] 09/08/2024 7:00 AM EDT Laboratory Lab Mobile Phlebotomy [facility] [address] [facility] [place] [address] Mvmg, G[facility] [address] [facility] [place], [place] [address] 09/15/2024 7:00 AM EDT Laboratory Lab Mobile Phlebotomy [facility] [address] [place] [address] Mvmg, [facility] [address] [facility] [place] [address] 09/22/2024 7:00 AM EDT Laboratory Lab Mobile Phlebotomy [facility] [address] [place] [address] Mvmg, Gml [facility] Draw [address] [facility] [place] [address] 09/29/2024 7:00 AM EDT Laboratory Lab Mobile Phlebotomy [facility] [address] [facility] [place] [address] Mvmg, G[facility] [address] [facility] [place] [address] 10/06/2024 7:00 AM EST Laboratory Lab Mobile Phlebotomy [facility] [address] [place] [address] Mvmg, Gml [facility] Draw [address] [facility] [place] [address] 10/12/2024 10:20 AM EST Office Visit Pulmonary Medicine, [facility] 132 [facility] [place] [address] Jordan Stanley MD [address] [place] [address] [address] 10/13/2024 7:00 AM EST Laboratory Lab Mobile Phlebotomy [facility] [address] [facility] [place] [address] Mvmg, [facility] [address] [facility] [place] [address] 10/20/2024 7:00 AM EST Laboratory Lab Mobile Phlebotomy [facility] [address] [facility] [place] [address] Mvmg, Gml [facility] Draw [address] [facility] [place] [address] 10/27/2024 7:00 AM EST Laboratory Lab Mobile Phlebotomy [facility] [address] [address] [facility], l Mobile Home Draw [address] [facility], [place] [address] 10/30/2024 10:00 AM EST Office Visit Urology Lynnette Fitzpatrick [address] [place] [address] [address] Frank Peraza MD [address] [place] [address] [place] [address] Pending Results Name Type Priority Associated Diagnoses [...] Additional history exists CKD PHOS USE SMARTSET 58504 05/08/202506/2024, 04/07/2024, 02/26/2024, Additional history exists CKD HGB USE SMARTSET 91464 05/18/202505/18, 05/18/2024, 05/12/2024, Additional history exists Diabetic [...] this encounter Medical Devices Implanted Type Area Dry Kiln Burner Device Identifier Shelf Expiration Date Model / Serial / Lot Clareon Iol Aspheric Hydrophobic Acrylic Iol Implanted:Qty: 1 on 04/23/2023 by Cody Gonzalez DO at OR [facility] Lens Left: Eye 11/12/2025 CNA0T0 / [id number] / Viatorr Tips Endoprosthesis 8-10 Mm X 8cm / 2cm Implanted:Qty: 1 on 10/07/2020 by Go Alvarado MD at [facility] Right: Abdomen 03/03/2023 [id number] / / [id number] Description:Viatorr TIPS End oprosthesis 8-10 mm x 8cm / 2cm, Manufactored by [employer] Syr Pf 2ml Embospheres 100-300 - [id number] Implanted:Qty: 1 on 04/18/2021 by Kevin Lim DO at OR [facility] Left: Abdomen [employer] [id number] 11/25/2023 S220GH / / [id number] Lipiodol Injection - [id number] Implanted:Qty: 1 on 03/28/2022 at [facility] [employer] 03/01/2023 07127-28 01-2 / / [id number] Syr Pf 2ml Embospheres 100-300 - [id number] Implanted:Qty: 1 on 03/28/2022 at [facility] [employer] [id number] 08/31/2024 S220GH / / [id number] Clareon Iol Aspheric Hydrophobic Acrylic Iol Implanted:Qty: 1 on 04/02/2023 by Cody Gonzalez DO at OR [facility] Right: Eye JAZMIN 11/12/2025 CNA0T0 / [id number] / documented as of this encounter [...] Documents on File Type Date 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
--- OUTSIDE RECORDS SUMMARY | 2024-05-20 09:09 | External Medical Summary | Summary of Care ---
Author Name Unknown Organization [facility] Address [address] [place] [address] Phone [phone] Care Team Providers Care Worm Picker Name Role Phone Francisco Cisse MD Primary Care Provider + Reason for Visit * Reason Onset Date Comments Other 05/15/2024 Order needs faxe d Encounter Details Date Type Department Care Team (Late st Contact Info) Description 05/15/2024 Telephone Gastroenterology, [facility] 132 [facility] [place] [address] Services, Scheduling [address] [place] [address] Other (Order needs faxed) Allergies No known active allergiesdocumented as of this encounter (statuses as of 05/15/2024) Medications Medication Sig Dispensed Refills Start Date [...] as of this encounter (statuses as of 05/15/2024) Active Problems Problem Noted Date Diagnosed Date [...] as of this encounter (statuses as of 05/15/2024) Resolved Problems Problem Noted Date Diagnosed Date [...] as of this encounter (statuses as of 05/15/2024) Immunizations Name Administration Dates Next Due COVID-19 mRNA, LNP-s, No Pre serve, 2-Dose Series ([place]) 03/08/2021,02/15/2021 HepA Inact/HepB Recomb>=18yrs old 12/04/2019,04/2019,05/20/2019 11/19/2019 PPD 06/18/2017, 3,01/09/2012,06/2011 Pneumococcal Conjugate Vacc, 13 Valent (Prevnar) 05/01/2017 Pneumococcal Polysaccharide PPV23 (Pneumovax) 08/28/2022,10/25/2015,07/14/2012 Season Influenza, Quad, PF, Adjuvanted, 65+ Yrs, IM (FLUAD) 10/07/2020(Deferred: Patient Refused - pt says he already had his shot last [facility] at [facility] [...] No 05/08/2024 documented as of this encounter Miscellaneous Notes * Telephone Encounter - Kriss Mcclendon OSA - 05/15/2024 11:25 AM EDT Patient states that he needs an order for paracentisis faxed to [facility] before he can get a date and time Fax number is [phone] Please assist documented in this encounter Plan of Treatment Upcoming Encounters Date Type Department Care Team (Late st Contact Info) Description 05/18/2024 7:05 AM EDT Laboratory Lab Mobile Phlebotomy [facility] [address] [place] [place] [address] Mvmg, Gml Mobile Home Draw [address] [place] [address] 05/19/2024 9:20 AM EDT Office Visit Family Practice [facility] [address] [place] [address] Kristen Vences DO [address] [place] [address] 2024 2:30 PM EDT Office Visit Urology Lynnette Fitzpatrick [address] [address] [address] Frank Peraza MD [address] [place] [address] 05/26/2024 7:05 AM EDT Laboratory Lab Mobile Phlebotomy [facility] [address] [employer] [place], [place] [address] Mvmg, Gml [facility] Draw [address] [employer] [place], [place] [address] 06/02/2024 7:00 AM EDT Laboratory Lab Mobile Phlebotomy [facility] [address] [employer] [place], [place] [address] Mvmg, Gml Mobile Home Draw [address] [employer] [place], [place] [address] 06/09/2024 7:00 AM EDT Laboratory Lab Mobile Phlebotomy [facility] [address] [employer] [place], [place] [address] Mvmg, Gml Mobile Home Draw [address] [employer] [place], [place] [address] 06/16/2024 7:00 AM EDT Laboratory Lab Mobile Phlebotomy [facility] [address] [employer] [place], [place] [address] Mvmg, Gml Mobile Home Draw [address] [place] [address] 06/23/2024 7:00 AM EDT Laboratory Lab Mobile Phlebotomy [facility] [address] [employer] [place], [place] [address] Mvmg, Gml Mobile Home Draw [address] [employer] [place], [place] [address] 06/23/2024 2:00 PM EDT Office Visit [facility]ology[facility] [place] [address] [facility] [place] [address] Ayaka Ttaum CRNP [address] [place] [address] 06/30/2024 7:00 AM EDT Laboratory Lab Mobile Phlebotomy [facility] [address] [place] [address] Mvmg, Gml [facility] Draw [address] [place] [address] 07/07/2024 7:00 AM EDT Laboratory Lab Mobile Phlebotomy [facility] [address] [place] [address] Mvmg, Gml Mobile Home Draw [address] [place] [address] 07/14/2024 7:00 AM EDT Laboratory Lab Mobile Phlebotomy [facility] [address] [place] [address] Mvmg, Gml Mobile Home Draw [address] [place] [address] 07/21/2024 7:00 AM EDT Laboratory Lab Mobile Phlebotomy [facility] [address] [place] [address] Mvmg, Gml Mobile Home Draw [address] [place] [address] 07/28/2024 7:00 AM EDT Laboratory Lab Mobile Phlebotomy [facility] [address] [place] [address] Mvmg, Gml Mobile Home Draw [address] [place] [address] 08/04/2024 7:00 AM EDT Laboratory Lab Mobile Phlebotomy [facility] [address] [place] [address] Mvmg, Gml Mobile Home Draw [address] [place] [address] 08/11/2024 7:00 AM EDT Laboratory Lab Mobile Phlebotomy [facility] [address] [employer] [place], [place] [address] Mvmg, Gml Mobile Home Draw [address] [facility] [place], [place] [address] 08/18/2024 7:00 AM EDT Laboratory Lab Mobile Phlebotomy [facility] [address] [facility] [place], [place] [address] Mvmg, Gml Mobile Home Draw [address] [facility] [place], [place] [address] 08/20/2024 10:15 AM EDT Office Visit Ophthalmology, [facility] [address] [facility] [place] [address] Cody Gonzalez, DO [address] [place] [address] [address] 08/25/2024 7:00 AM EDT Laboratory Lab Mobile Phlebotomy [facility] [address] [employer] [place], [place] [address] Mvmg, Gml Mobile Home Draw 2520 [facility], [place] [address] 09/01/2024 7:00 AM EDT Laboratory Lab Mobile Phlebotomy [facility] [address] [facility] [place], [place] [address] Mvmg, Gml Mobile Home Draw [address] [facility] [place], [place] [address] 09/08/2024 7:00 AM EDT Laboratory Lab Mobile Phlebotomy [facility] [address] [facility] [place], [place] [address] Mvmg, Gml Mobile Home Draw [address] [facility] [place] [address] 09/15/2024 7:00 AM EDT Laboratory Lab Mobile Phlebotomy [facility] [address] [facility] [place], [place] [address] Mvmg, Gml Mobile Home Draw [address] [facility] [place], [place] [address] 09/22/2024 7:00 AM EDT Laboratory Lab Mobile Phlebotomy [facility] [address] [place] [address] Mvmg, Gml Mobile Home Draw [address] [facility] [place] [address] 09/29/2024 7:00 AM EDT Laboratory Lab Mobile Phlebotomy [facility] [address] [facility] [place] [address] Mvmg, Gml Mobile Home Draw [address] [facility] [place] [address] 10/06/2024 7:00 AM EST Laboratory Lab Mobile Phlebotomy [facility] [address] [place] [address] Mvmg, Gml Mobile Home Draw [address] [facility] [place] [address] 10/12/2024 10:20 AM EST Office Visit Pulmonary Medicine, [facility] [address] [place] [address] [address] Jordan Stanley [facility] [address] [facility] [address] 10/13/2024 7:00 AM EST Laboratory Lab Mobile Phlebotomy [facility] [address] [facility] [place] [address] Mvmg, Gml Mobile Home Draw [address] [facility] [place] [address] 10/20/2024 7:00 AM EST Laboratory Lab Mobile Phlebotomy [facility] [address] [employer] [facility] [place] [address] Mvmg, Gml Mobile Home Draw [address] [place] [address] [facility] [place] [address] 10/27/2024 7:00 AM EST Laboratory Lab Mobile Phlebotomy [facility] [address] [facility] [place] [address] Mvmg, Gml Mobile Home Draw [address] [place] [address] 10/30/2024 10:00 AM EST Office Visit Lynnette Terry [address] [address] [address] Frank Peraza MD [address] [place] [address] Scheduled Orders Name Type Priority Associated Diagnoses Orde r Schedule US ABDOMINAL PARACENTESIS Medical Imaging Routine Cirrhosis of liver with ascites, unspecified hepatic cirrhosis type (HCC) FOFANA (nonalcoholic steatohepatitis) Expected: 05/16/2024, Expires: 06/14/2025 Scheduled Procedures Name Priority Associated Diagnoses Date/Ti va COLONOSCOPY FLEXIBLE PROXIMAL DIAGNOSTIC Recall History of [...] Additional history exists CKD PHOS USE SMARTSET 15454 05/08/2025 06/0 06/2024, 04/07/2024, 02/26/2024, Additional history exists CKD HGB USE SMARTSET 31638 05/12/202505/12, 05/11/2024, 05/11/2024, Additional history exists Sigmoidoscopy 04/12/2027 04/12/2022 Lipid [...] this encounter Medical Devices Implanted Type Area Seam Steamer Device Identifier Shelf Expiration Date Model / Serial / Lot Clareon Iol Aspheric Hydrophobic Acrylic Iol Implanted:Qty: 1 on 04/23/2023 by Cody Gonzalez DO at OR [facility] Lens Left: Eye 11/12/2025 CNA0T0 / [id number] / Viatorr Tips Endoprosthesis 8-10 Mm X 8cm / 2cm Implanted:Qty: 1 on 10/07/2020 by Go Alvarado MD at [facility] Right: Abdomen 03/03/2023 [id number] / / [id number] Description:Viatorr TIPS End oprosthesis 8-10 mm x 8cm / 2cm, Manufactored by [employer] Syr Pf 2ml Embospheres 100-300 - [id number] Implanted:Qty: 1 on 04/18/2021 by Kevin Lim DO at OR [facility] Left: Abdomen [email or web address] [id number] 11/25/2023 S220GH / / [id number] Lipiodol Injection - [id number] Implanted:Qty: 1 on 03/28/2022 at [facility] [employer] 03/01/2023 60342-52 01- [id number] Syr Pf 2ml Embospheres 100-300 - [id number] Implanted:Qty: 1 on 03/28/2022 at [facility] [employer] [id number] 08/31/2024 S220GH / / [id number] -[id number] Clareon Iol Aspheric Hydrophobic Acrylic Iol Implanted:Qty: 1 on 04/02/2023 by Cody Gonzalez DO at OR [facility] Right: Eye JAZMIN 11/12/2025 CNA0T0 / [id number] / documented as of this encounter Visit Diagnoses Diagnosis Cirrhosis of liver with ascites, unspecified hepatic cirrhosis type (HCC)- Primary FOFANA (nonalcoholic steatohepatitis) Other chronic nonalcoholic liver disease documented in this encounter Advance Directives Documents on File Type Date Recorded 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 [place] [address] PCP - General Internal Medicine 09/04/21 documented as of this encounter
--- OUTSIDE RECORDS SUMMARY | 2024-05-20 09:09 | External Medical Summary | Summary of Care ---
Author Name Unknown Organization [facility] Address [address] [place] [address] Phone [phone] Care Team Providers Care Block Sealer Name Role Phone Francisco Cisse MD Primary Care Provider + Reason for Visit * Reason Onset Date Comments Advice 02/17/2024 Encounter Details Date Type Department Care Team (Late st Contact Info) Description 02/17/2024 Telephone Urology, [facility] [address] [place] [address] Services, Scheduling [address] [place] [address] Advice Allergies No known active allergiesdocumented as of this encounter (statuses as of 05/16/2024) Medications Medication Sig Dispensed Refills Start Date [...] as of this encounter (statuses as of 05/16/2024) Active Problems Problem Noted Date Diagnosed Date [...] as of this encounter (statuses as of 05/16/2024) Resolved Problems Problem Noted Date Diagnosed Date [...] as of this encounter (statuses as of 05/16/2024) Immunizations Name Administration Dates Next Due COVID-19 mRNA, LNP-s, No Pre serve, 2-Dose Series (Pfizer) 03/08/2021,02/15/2021 HepA Inact/HepB Recomb>=18yrs old 12/04/2019,04/2019,05/20/2019 11/19/2019 PPD 06/18/2017, 3,01/09/2012,06/2011 Pneumococcal Conjugate Vacc, 13 Valent (Prevnar) 05/01/2017 Pneumococcal Polysaccharide PPV23 (Pneumovax) 08/28/2022,10/25/2015,07/14/2012 Season Influenza, Quad, PF, Adjuvanted, 65+ Yrs, IM (FLUAD) 10/07/2020(Deferred: Patient Refused - pt says he already had his shot last [facility] at [facility] aHndy Lyons and Mckinley Cobian made aware) Seasonal [...] Miscellaneous Notes * Telephone Encounter - Dalia Galeana OSA - 02/17/2024 8:23 AM EDT Reason for patient's call: catheter concern Caller was transferred to [facility] at the nurse line. documented in this encounter Plan of Treatment Upcoming Encounters Date Type Department Care Team (Late st Contact Info) Description 05/18/2024 7:05 AM EDT Laboratory Lab Mobile Phlebotomy [facility] [address] [place] [address] [facility] [address] [place] [address] 05/19/2024 9:20 AM EDT Office Visit Family [facility] [address] [place] [address] Kristen Vences DO [address] [place] [address] 2024 2:30 PM EDT Office Visit Urology Lynnette Fitzpatrick [address] [place] [address] [place] [address] Frank Peraza MD [address] [place] [address] [place] [address] 05/26/2024 7:05 AM EDT Laboratory Lab Mobile Phlebotomy [facility] [address] [place], [place] [address] [facility] [address] [place], [place] [address] 06/02/2024 7:00 AM EDT Laboratory Lab Mobile Phlebotomy [facility] [address] [place], [place] [address] [facility] [address] [place], [place] [address] 06/09/2024 7:00 AM EDT Laboratory Lab Mobile Phlebotomy [facility] [address] [place], [place] [address] M[facility], [facility] [address] [place], [place] [address] 06/16/2024 7:00 AM EDT Laboratory Lab Mobile Phlebotomy [facility] [address] [place], [place] [address] [facility], [facility] [address] [place], [place] [address] 06/23/2024 7:00 AM EDT Laboratory Lab Mobile Phlebotomy [facility] [address] [place] [address] [facility] [address] [employer], [place] [address] 06/23/2024 2:00 PM EDT Office Visit Hematology/Oncology [employer] [address] [employer], [place] [address] Ayaka Tatum CRNP [address] [place] [address] 06/30/2024 7:00 AM EDT Laboratory Lab Mobile Phlebotomy [facility] [address] [place], [place] [address] [facility] [address] [employer], [place] [address] 07/07/2024 7:00 AM EDT Laboratory Lab Mobile Phlebotomy [facility] [address] [employer], [place] [address] M[facility], [facility] [address] [employer], [place] [address] 07/14/2024 7:00 AM EDT Laboratory Lab Mobile Phlebotomy [facility] [address] [place], [place] [address] Mv[facility], [facility] [address] [place], [place] [address] 07/21/2024 7:00 AM EDT Laboratory Lab Mobile Phlebotomy [facility] [address] [place], [place] [address] M[facility], [facility] [address] [place] [address] 07/28/2024 7:00 AM EDT Laboratory Lab Mobile Phlebotomy [facility] [address] [place], [place] [address] M[facility], [facility] [address] [employer], [place] [address] 08/04/2024 7:00 AM EDT Laboratory Lab Mobile Phlebotomy [facility] [address] [employer], [place] [address] Mv[facility], [facility] [address] [place], [place] [address] 08/11/2024 7:00 AM EDT Laboratory Lab Mobile Phlebotomy [facility] [address] [place], [place] [address] Mv[facility], [facility] 2520 [facility] [place], [place] [address] 08/18/2024 7:00 AM EDT Laboratory Lab Mobile Phlebotomy [facility] [address] [facility] [place], [place] [address] Mv[facility], [facility] [address] [facility] [place], [place] [address] 08/20/2024 10:15 AM EDT Office Visit Ophthalmology, [facility] 132 [facility] [place] [address] Cody Gonzalez, DO [facility] [address] 08/25/2024 7:00 AM EDT Laboratory Lab Mobile Phlebotomy [facility] [address] [place], [place] [address] M[facility], [facility] 25[address] [facility] [place], [place] [address] 09/01/2024 7:00 AM EDT Laboratory Lab Mobile Phlebotomy [facility] [address] [facility] [place], [place] [address] Mvmg, [facility] [address] [facility] [place], [place] [address] 09/08/2024 7:00 AM EDT Laboratory Lab Mobile Phlebotomy [facility] [address] [place], [place] [address] Mvmg, [facility] [address] [facility] [place], [place] [address] 09/15/2024 7:00 AM EDT Laboratory Lab Mobile Phlebotomy [facility] [address] [facility] [place], [place] [address] Mvmg, [facility] 25[address] [facility] [place], [place] [address] 09/22/2024 7:00 AM EDT Laboratory Lab Mobile Phlebotomy [facility] [address] [facility] [place] [address] Mvmg, [facility] [address] [facility] [place] [address] 09/29/2024 7:00 AM EDT Laboratory Lab Mobile Phlebotomy [facility] [address] [facility] [place] [address] Mvmg, [facility] [address] [facility] [place] [address] 10/06/2024 7:00 AM EST Laboratory Lab Mobile Phlebotomy [facility] [address] [facility] [place] [address] Mv[facility], [facility] [address] [facility] [place] [address] 10/12/2024 10:20 AM EST Office Visit Pulmonary Medicine, [facility] 132 [facility] [place] [address] Jordan Stanley MD [address] [place] [address] 10/13/2024 7:00 AM EST Laboratory Lab Mobile Phlebotomy [facility] [address] [facility] [place] [address] Mvmg, [facility] [address] [facility] [place] [address] 10/20/2024 7:00 AM EST Laboratory Lab Mobile Phlebotomy [facility] [address] [facility] [place] [address] Mvmg, [facility] [address] [facility] [place] [address] 10/27/2024 7:00 AM EST Laboratory Lab Mobile Phlebotomy [facility] [address] [facility] [place] [address] M[facility], [facility] [address] [facility] [place] [address] 10/30/2024 10:00 AM EST Office Visit Urology Lynnette Fitzpatrick [address] [place] [address] [place] [address] Frank Peraza MD [address] [place] [address] [place] [address] Scheduled Procedures Name Priority Associated Diagnoses Date/Ti [...] Additional history exists CKD PHOS USE SMARTSET 38279 05/08/2025 060 06/2024, 04/07/2024, 02/26/2024, Additional history exists CKD HGB USE SMARTSET 02629 05/12/202505/12, 05/11/2024, 05/11/2024, Additional history exists Sigmoidoscopy [...] this encounter Medical Devices Implanted Type Area Case Assembler Device Identifier Shelf Expiration Date Model / Serial / Lot Clareon Iol Aspheric Hydrophobic Acrylic Iol Implanted:Qty: 1 on 04/23/2023 by Cody Gonzalez DO at OR [facility] Lens Left: Eye 11/12/2025 CNA0T0 / [id number] / Viatorr Tips Endoprosthesis 8-10 Mm X 8cm / 2cm Implanted:Qty: 1 on 10/07/2020 by Go Alvarado MD at [facility] Right: Abdomen 03/03/2023 [id number] / / [id number] Description:Viatorr TIPS End oprosthesis 8-10 mm x 8cm / 2cm, Manufactored by [employer] Syr Pf 2ml Embospheres 100-300 - [id number] Implanted:Qty: 1 on 04/18/2021 by Kevin Lim DO at OR [facility] Left: Abdomen [employer] [id number] 11/25/2023 S220GH / / [id number] Lipiodol Injection - [id number] Implanted:Qty: 1 on 03/28/2022 at [facility] [employer] 03/01/2023 24348-33 01-2 / / [id number] Syr Pf 2ml Embospheres 100-300 - [id number] Implanted:Qty: 1 on 03/28/2022 at [facility] [employer] [id number] 08/31/2024 S220GH / / [id number] -[id number] Clareon Iol Aspheric Hydrophobic Acrylic Iol Implanted:Qty: 1 on 04/02/2023 by Cody Gonzalez DO at OR [facility] Right: Eye JAZMIN 11/12/2025 CNA0T0 / [id number] / documented as of this encounter Advance Directives Documents on File Type Date Recorded Patient Injection Molding Process Technician Expl anation Advance Directives and Living Will 12/11/2022 ADVANCE DIRECTIVE / LIVING WILL LIVING WILL Power of Clinical Documentation Specialist 12/11/2022 POWER OF A TTORNEY * Full [...] Discussed due to patient's condition Care Teams Block Sealer Relationship Specialty Start Date End Date Francisco Cisse MD [address] [facility] [place] [address] PCP - General Internal Medicine 09/04/21 documented as of this encounter
--- OUTSIDE RECORDS SUMMARY | 2024-05-20 09:09 | External Medical Summary | Summary of Care ---
Author Name Unknown Organization [facility] Address [address] [place] [address] Phone [phone] Care Team Providers Care Building Equipment Inspector Name Role Phone Francisco Cisse MD Primary Care Provider + Reason for Visit * Reason Onset Date Comments Other 05/15/2024 Order needs faxe d Encounter Details Date Type Department Care Team (Late st Contact Info) Description 05/15/2024 Telephone Gastroenterology, [facility] 132 [facility] [place] [address] Services, Scheduling [address] [place] [address] Other (Order needs faxed) Allergies No known [...] mRNA, LNP-s, No Pre serve, 2-Dose Series ([employer]) 03/08/2021,02/15/2021 HepA Inact/HepB Recomb>=18yrs old 12/04/2019,04/2019,05/20/2019 [...] encounter Miscellaneous Notes * Telephone Encounter - Carmen Longo CMA - 05/15/2024 11:57 AM EDT Order faxed to [facility] for paracentesis. CORNELIO Morales * Telephone Encounter - Kriss Mcclendon OSA - 05/15/2024 11:25 AM EDT Patient states that he needs an order for paracentisis faxed to [facility] before he can get a date and time Fax number is [phone] Please assist documented in this encounter Plan of Treatment Upcoming Encounters Date Type Department Care Team (Late st Contact Info) Description 05/18/2024 7:05 AM EDT Laboratory Lab Mobile Phlebotomy [facility] [address] [place] [address] [place] [address] [facility], [facility] [address] [place] [address] 05/19/2024 9:20 AM EDT Office Visit Family [facility] [address] [place] [address] Kristen Vences DO [address] [place] [address] 2024 2:30 PM EDT Office Visit Urology Lynnette Fitzpatrick [address] [place] [address] [place] [address] Frank Peraza MD [address] [place] [address] [place] [address] 05/26/2024 7:05 AM EDT Laboratory Lab [facility] Phlebotomy [facility] [address] [place] [address] [address] [facility] [address] [place] [address] 06/02/2024 7:00 AM EDT Laboratory Lab Mobile Phlebotomy [facility] [address] [place] [address] [facility] [address], [place] [address] 06/09/2024 7:00 AM EDT Laboratory Lab Mobile Phlebotomy [facility] [address] [place] [address] [facility], [facility] [address] [place] [address] 06/16/2024 7:00 AM EDT Laboratory Lab Mobile Phlebotomy [facility] [address] [place] [address] [facility], [facility] [address] [facility] [place] [address] 06/23/2024 7:00 AM EDT Laboratory Lab Mobile Phlebotomy [facility] [address] [place], [place] [address] M[facility], [facility] [address] [facility] [place] [address] 06/23/2024 2:00 PM EDT Office Visit Hematology/Oncology [facility] [place] 200 [facility], [place] [address] Ayaka Tatum CRNP [address] [place] [address] [place] [address] 06/30/2024 7:00 AM EDT Laboratory Lab Mobile Phlebotomy [facility] [address] [place] [address] [facility], [facility] [address] [facility] [place] [address] 07/07/2024 7:00 AM EDT Laboratory Lab Mobile Phlebotomy [facility] [address] [place], [place] [address] M[facility], [facility] [address] [facility] [place] [address] 07/14/2024 7:00 AM EDT Laboratory Lab Mobile Phlebotomy [facility] [address] [place] [address] Mv[facility], [facility] [address] [facility] [place] [address] 07/21/2024 7:00 AM EDT Laboratory Lab Mobile Phlebotomy [facility] [address] [place] [address] Mv[facility], [facility] Draw [address] [facility] [address] 07/28/2024 7:00 AM EDT Laboratory Lab Mobile Phlebotomy [facility] [address] [place] [address] Mvmg, [facility] [address] [facility] [place] [address] 08/04/2024 7:00 AM EDT Laboratory Lab Mobile Phlebotomy [facility] [address] [facility] [place], [place] [address] Mvmg, [facility] Draw [address] [facility] [place] [address] 08/11/2024 7:00 AM EDT Laboratory Lab Mobile Phlebotomy [facility] [address] [facility] [place] [address] Mvmg, G[facility] Draw [address]20 [place] [address] 08/18/2024 7:00 AM EDT Laboratory Lab Mobile Phlebotomy [facility] [address] [facility] [place], [place] [address] Mvmg, G[facility] Draw [address] [facility] [place], [place] [address] 08/20/2024 10:15 AM EDT Office Visit Ophthalmology, [facility] 132 [facility] [place] [address] Cody Gonzalez, [address] [place] [address] [place] [address] 08/25/2024 7:00 AM EDT Laboratory Lab Mobile Phlebotomy [facility] [address] [facility] [place], [place] [address] Mvmg, [facility] Draw 25[address] [facility], [place] [address] 09/01/2024 7:00 AM EDT Laboratory Lab Mobile Phlebotomy [facility] [address] [facility] [place], [place] [address] Mvmg, Gml [facility] Draw [address] [facility] [place] [address] 09/08/2024 7:00 AM EDT Laboratory Lab Mobile Phlebotomy [facility] [address] [facility] [place] [address] Mvmg, Gml [facility] Draw [address] [place] [address] 09/15/2024 7:00 AM EDT Laboratory Lab Mobile Phlebotomy [facility] [address] [facility] [place] [address] Mvmg, Gml [facility] Draw [address] [facility] [place] [address] 09/22/2024 7:00 AM EDT Laboratory Lab Mobile Phlebotomy [facility] [address] [facility] [place] [address] Mvmg, Gml [facility] Draw [address] [facility] [place] [address] 09/29/2024 7:00 AM EDT Laboratory Lab Mobile Phlebotomy [facility] [address] [facility] [place] [address] Mvmg, Gml [facility] Draw [address] [facility] [place] [address] 10/06/2024 7:00 AM EST Laboratory Lab Mobile Phlebotomy [facility] [address] [facility] [place] [address] Mvmg, Gml [facility] Draw [address] [place] [address] 10/12/2024 10:20 AM EST Office Visit Pulmonary Medicine, [facility] 132 [facility] [place] [address] Jordan Stanley MD [address] [facility] [address] 10/13/2024 7:00 AM EST Laboratory Lab Mobile Phlebotomy [facility] [address] [facility] [place] [address] Mvmg, Gml [facility] Draw [address] [facility] [place] [address] 10/20/2024 7:00 AM EST Laboratory Lab Mobile Phlebotomy [facility] [address] [facility] [place] [address] Mvmg, [facility] [address] [place] [address] 10/27/2024 7:00 AM EST Laboratory Lab Mobile Phlebotomy [facility] [address] [address] Mvmg, Gml [facility] Home Draw 0 [facility] [place] [address] 10/30/2024 10:00 AM EST Office Visit Urology Lynnette Fitzpatrick [address] [place] [address] [place] [address] Frank Peraza MD [address] [place] [address] [place] [address] Scheduled Orders Name Type Priority Associated Diagnoses [...] Additional history exists CKD PHOS USE SMARTSET 52655 05/08/202506/2024, 04/07/2024, 02/26/2024, Additional history exists CKD HGB USE SMARTSET 87081 05/12/202505/12, 05/11/2024, 05/11/2024, Additional history exists Sigmoidoscopy [...] encounter Medical Devices Implanted Type Area Supervising Airplane Pilot Device Identifier Shelf Expiration Date Model / Serial / Lot Clareon Iol Aspheric Hydrophobic Acrylic Iol Implanted:Qty: 1 on 04/23/2023 by Cody Gonzalez DO at OR [facility] Lens Left: Eye 11/12/2025 CNA0T0 / [id number] / Viatorr Tips Endoprosthesis 8-10 Mm X 8cm / 2cm Implanted:Qty: 1 on 10/07/2020 by Go Alvarado MD at [facility] Right: Abdomen 03/03/2023 [id number] / / [id number] Description:Viatorr TIPS End oprosthesis 8-10 mm x 8cm / 2cm, Manufactored by [employer] Syr Pf 2ml Embospheres 100-300 - [id number] Implanted:Qty: 1 on 04/18/2021 by Kevin Lim DO at OR [facility] Left: Abdomen [employer] [id number] 11/25/2023 S220GH / / [id number] Lipiodol Injection - [id number] Implanted:Qty: 1 on 03/28/2022 at [facility] [employer] 03/01/2023 [address]2756-26 01-2 / / [id number] Syr Pf 2ml Embospheres 100-300 - [id number] Implanted:Qty: 1 on 03/28/2022 at [facility] [employer] [id number] 08/31/2024 S220GH / / [id number] -[id number] Clareon Iol Aspheric Hydrophobic Acrylic Iol Implanted:Qty: 1 on 04/02/2023 by Cody Gonzalez DO at OR [facility] Right: Eye JAZMIN 11/12/2025 CNA0T0 / [id number] / documented as of this encounter Visit Diagnoses Diagnosis Cirrhosis of liver with ascites, unspecified hepatic cirrhosis type (HCC)- Primary FOFANA (nonalcoholic steatohepatitis) Other chronic nonalcoholic liver disease documented in this encounter Advance Directives Documents on File Type Date Recorded Patient Cherry Cutter Expl anation Advance Directives and Living Will 12/11/2022 ADVANCE DIRECTIVE / LIVING WILL LIVING WILL Power of Fuels Engineer 12/11/2022 POWER OF A TTORNEY * Full [...] Discussed due to patient's condition Care Teams Building Equipment Inspector Relationship Specialty Start Date End Date Francisco Cisse MD [address] [place] [address] PCP - General Internal Medicine 09/04/21 documented as of this encounter
--- OUTSIDE RECORDS SUMMARY | 2024-05-20 09:09 | External Medical Summary | Summary of Care ---
Author Name Unknown Organization [facility] Address [address] [facility] [place] [address] Phone [phone] Care Team Providers Care Excelsior Machine Tender Name Role Phone Francisco Cisse MD Primary Care Provider + Reason for Visit * Reason Onset Date Comments Health Maintenance 02/14/2024 Appointment 02/14/2024 Encounter Details Date Type Department Care Team (Late st Contact Info) Description 02/14/2024 Telephone General Internal Medicine [facility] [address] [place] [address] Francisco Cisse MD [address] [place] [address] Health Maintenance; Appointment Allergies No known active allergiesdocumented as [...] mRNA, LNP-s, No Pre serve, 2-Dose Series ([employer]) 03/08/2021,02/15/2021 HepA Inact/HepB Recomb>=18yrs old 12/04/2019,04/2019,05/20/2019 11/19/2019 PPD 06/18/2017, 3,01/09/2012,06/2011 Pneumococcal Conjugate Vacc, 13 Valent (Prevnar) 05/01/2017 Pneumococcal Polysaccharide PPV23 (Pneumovax) 08/28/2022,10/25/2015,07/14/2012 Season Influenza, Quad, PF, Adjuvanted, 65+ Yrs, IM (FLUAD) 10/07/2020(Deferred: Patient Refused - pt says he already had his shot last month at [facility] Handy Lyons and Mckinley Cobian made [...] encounter Miscellaneous Notes * Telephone Encounter - Yolis Wilkins LPN - 02/14/2024 10:17 AM EDT I reached out to patient for a care gaps follow up. He needs to get his hospital d/c follow up rescheduled. He had to cancel due to issues with his catheter. Please assist with scheduling him to comeback in. documented in this encounter Plan of Treatment Upcoming Encounters Date Type Department Care Team (Late st Contact Info) Description 05/18/2024 7:05 AM EDT Laboratory Lab Mobile Phlebotomy [facility] [address] [place] [address] M[facility], G[facility] Draw [address] [place] [address] 05/19/2024 9:20 AM EDT Office Visit Family Practice [facility] [address] [place] [address] Kristen Vences DO [address] [place] [address] 2024 2:30 PM EDT Office Visit Urology Lynnette Fitzpatrick [address] [place] [address] [place] [address] Frank Peraza MD [address] [place] [address] [place] [address] 05/26/2024 7:05 AM EDT Laboratory Lab Mobile Phlebotomy [facility] [address] [place] [address] Mvmg, Gml [facility] Draw [address] [place], [place] [address] 06/02/2024 7:00 AM EDT Laboratory Lab Mobile Phlebotomy [facility] [address] [place] [address] Mvmg, Gml [facility] Draw [address] [place], [place] [address] 06/09/2024 7:00 AM EDT Laboratory Lab Mobile Phlebotomy [facility] [address] [place] [address] Mvmg, G[facility] Draw [address] [place], [place] [address] 06/16/2024 7:00 AM EDT Laboratory Lab Mobile Phlebotomy [facility] [address] [place] [address] Mvmg, Gml [facility] Draw [address] [place] [address] 06/23/2024 7:00 AM EDT Laboratory Lab Mobile Phlebotomy [facility] [address] [place], [place] [address] Mvmg, Gml Mobile Home Draw [address] [place], [place] [address] 06/23/2024 2:00 PM EDT Office Visit Hematology/Oncology [facility] Blank[facility] [place] [address] [facility] [place], [place] [phone] Ayaka Tatum CRNP [address] [facility] [place] [address] 06/30/2024 7:00 AM EDT Laboratory Lab Mobile Phlebotomy [facility] [address] [place], [place] [address] Mvmg, Gml Mobile Home Draw [address] [place], [place] [address] 07/07/2024 7:00 AM EDT Laboratory Lab Mobile Phlebotomy [facility] [address] [place] [address] Mvmg, Gml Mobile Home Draw [address] [place] [address] 07/14/2024 7:00 AM EDT Laboratory Lab Mobile Phlebotomy [facility] [address] [place], [place] [address] Mvmg, Gml Mobile Home Draw [address] [place] [address] 07/21/2024 7:00 AM EDT Laboratory Lab Mobile Phlebotomy [facility] [address] [place] [address] Mvmg, Gml Mobile Home Draw [address] [place] [address] 07/28/2024 7:00 AM EDT Laboratory Lab Mobile Phlebotomy [facility] [address] [place], [place] [address] Mvmg, Gml Mobile Home Draw [address] [place] [address] 08/04/2024 7:00 AM EDT Laboratory Lab Mobile Phlebotomy [facility] [address] [facility] [place] [address] Mvmg, Gml Mobile Home Draw [address] [facility] [place] [address] 08/11/2024 7:00 AM EDT Laboratory Lab Mobile Phlebotomy [facility] [address] [facility] [place], [place] [address] Mvmg, Gml Mobile Home Draw [address] [facility] [place] [address] 08/18/2024 7:00 AM EDT Laboratory Lab Mobile Phlebotomy [facility] [address] [facility] [place], [place] [address] Mvmg, Gml Mobile Home Draw [address] [facility] [place], [place] [address] 08/20/2024 10:15 AM EDT Office Visit Ophthalmology, [facility] [address] [facility] [place] [address] Cody Gonzalez, DO [address] [facility] [place] [address] 08/25/2024 7:00 AM EDT Laboratory Lab Mobile Phlebotomy [facility] [address] [facility] [place], [place] [address] Mvmg, Gml Mobile Home Draw [address] [facility] [place], [place] [address] 09/01/2024 7:00 AM EDT Laboratory Lab Mobile Phlebotomy [facility] [address] [facility] [place] [address] Mvmg, Gml Mobile Home Draw [address] [facility] [place] [address] 09/08/2024 7:00 AM EDT Laboratory Lab Mobile Phlebotomy [facility] [address] [place], [place] [address] Mvmg, Gml Mobile Home Draw [address] [facility] [place], [place] [address] 09/15/2024 7:00 AM EDT Laboratory Lab Mobile Phlebotomy [facility] [address] [facility] [place] [address] Mvmg, Gml Mobile Home Draw [address] [facility] [place] [address] 09/22/2024 7:00 AM EDT Laboratory Lab Mobile Phlebotomy [facility] [address] [facility] [place] [address] Mvmg, Gml Mobile Home Draw [address] [facility] [place] [address] 09/29/2024 7:00 AM EDT Laboratory Lab Mobile Phlebotomy [facility] [address] [facility] [place] [address] Mvmg, Gml Mobile Home Draw [address] [facility] [place] [address] 10/06/2024 7:00 AM EST Laboratory Lab Mobile Phlebotomy [facility] [address] [facility] [place], [place] [address] Mvmg, Gml Mobile Home Draw [address] [facility] [place] [address] 10/12/2024 10:20 AM EST Office Visit Pulmonary Medicine, [facility] [address] [facility] [place] [address] Jordan Stanley MD [address] [place] [address] 10/13/2024 7:00 AM EST Laboratory Lab Mobile Phlebotomy [facility] [address] [facility] [place] [address] Mvmg, Gml Mobile Home Draw [address] [facility] [place] [address] 10/20/2024 7:00 AM EST Laboratory Lab Mobile Phlebotomy [facility] [address] [facility] [place] [address] Mvmg, Gml Mobile Home Draw [address] [facility] [place] [address] 10/27/2024 7:00 AM EST Laboratory Lab Mobile Phlebotomy [facility] [address] [place] [address] Mvmg, Gml Mobile Home Draw [address] [place] [address] 10/30/2024 10:00 AM EST Office Visit Urology Lynnette Fitzpatrick [address] [place] [address] Frank Peraza MD [address] [place] [address] [place] [address] Scheduled Procedures Name Priority Associated Diagnoses Date/Ti [...] Additional history exists CKD PHOS USE SMARTSET 18381 05/08/2025 06/0 06/2024, 04/07/2024, 02/26/2024, Additional history exists CKD HGB USE SMARTSET 97816 05/12/202505/12, 05/11/2024, 05/11/2024, Additional history exists Sigmoidoscopy [...] this encounter Medical Devices Implanted Type Area Group Contract Analyst Device Identifier Shelf Expiration Date Model / Serial / Lot Clareon Iol Aspheric Hydrophobic Acrylic Iol Implanted:Qty: 1 on 04/23/2023 by Cody Gonzalez DO at OR [facility] Lens Left: Eye 11/12/2025 CNA0T0 / [id number] / Viatorr Tips Endoprosthesis 8-10 Mm X 8cm / 2cm Implanted:Qty: 1 on 10/07/2020 by Go Alvarado MD at [facility] Right: Abdomen 03/03/2023 [id number] / / [id number] Description:Viatorr TIPS End oprosthesis 8-10 mm x 8cm / 2cm, Manufactored by [employer] Syr Pf 2ml Embospheres 100-300 - [id number] Implanted:Qty: 1 on 04/18/2021 by Kevin Lim DO at OR [facility] Left: Abdomen [employer] [id number] 11/25/2023 S220GH / / [id number] Lipiodol Injection - [id number] Implanted:Qty: 1 on 03/28/2022 at [facility] [employer] 03/01/2023 67130-91 01-2 / / [id number] Syr Pf 2ml Embospheres 100-300 - [id number] Implanted:Qty: 1 on 03/28/2022 at [facility] [employer] [id number] 08/31/2024 S220GH / / [id number] Clareon Iol Aspheric Hydrophobic Acrylic Iol Implanted:Qty: 1 on 04/02/2023 by Cody Gonzalez DO at OR [facility] Right: Eye JAZMIN 11/12/2025 CNA0T0 / [id number] / documented as of this encounter Advance Directives Documents on File Type Date Recorded Patient Safety Glass Installer Expl anation Advance Directives and Living Will 12/11/2022 ADVANCE DIRECTIVE / LIVING WILL LIVING WILL Power of Invertebrate Paleontologist 12/11/2022 POWER OF A TTORNEY * Full [...] Discussed due to patient's condition Care Teams Excelsior Machine Tender Relationship Specialty Start Date End Date Francisco Cisse MD [address] [place] [address] PCP - General Internal Medicine 09/04/21 documented as of this encounter
--- OUTSIDE RECORDS SUMMARY | 2024-05-20 09:09 | External Medical Summary | Summary of Care ---
Author Name Unknown Organization [facility] Address [address] [facility] [address] Phone [phone] Care Team Providers Care Front End Software Engineer Name Role Phone Francisco Cisse MD Primary Care Provider + Reason for Visit * Reason Onset Date Comments Advice 05/15/2024 Encounter Details Date Type Department Care Team (Late st Contact Info) Description 05/15/2024 Telephone Gastroenterology, [facility] [address] [place] [address] Lamar Tatum CRNP [address] [place] [address] Advice Allergies No known active allergiesdocumented as [...] mRNA, LNP-s, No Pre serve, 2-Dose Series ([place]) 03/08/2021,02/15/2021 HepA Inact/HepB Recomb>=18yrs old 12/04/2019,04/2019,05/20/2019 11/19/2019 [...] Encounter - Carmen Longo CMA - 05/15/2024 10:49 AM EDT Called and notified pt of Lamar's message. Paracentesis [facility] wk of 05/23, [facility] in about 2 weeks or to ED if large abdomen, SOB or discomfort. Pt voiced understanding and would like to think about it and will call back and let us know what he decides. Pt states his abdomen is "getting big", no SOB or discomfort yet. CORNELIO Morales * Telephone Encounter - Cristina Alexander OSA - 05/15/2024 9:48 AM EDT Please schedule accordingly. It would not let me schedule. * Telephone Encounter - Velasuqez Thomson LPN - 05/15/2024 8:35 AM EDT [facility] Interventional Radiology called and stated that the pt is requesting a paracentesis[the pt hasa standing order]. They stated that the provider that does these is out until 05/23 and they are wondering if the pt can have this done at [facility]. Please Advise. option 1 and then option 3 This is the call back information for Interventional Radiology documented in this encounter Plan of Treatment Upcoming Encounters Date Type Department Care Team (Late st Contact Info) Description 05/18/2024 7:05 AM EDT Laboratory Lab Mobile Phlebotomy [facility] [address] [employer] [place] [address] Mvmg, Gml Mobile Home Draw [address] [employer] [place] [address] 05/19/2024 9:20 AM EDT Office Visit Family [facility] [address] [place] [address] Kristen Vences DO [address] [place] [address] 2024 2:30 PM EDT Office Visit Urology Lynnette Fitzpatrick [address] [place] [address] [place] [address] Frank Peraza MD [address] [place] [address] [place] [address] 05/26/2024 7:05 AM EDT Laboratory Lab Mobile Phlebotomy [facility] [address] [employer] [place] [address] Mvmg, Gml Mobile Home Draw [address] [employer] [place], [place] [address] 06/02/2024 7:00 AM EDT Laboratory Lab Mobile Phlebotomy [facility] [address] [place], [place] [address] Mvmg, Gml Mobile Home Draw [address] [facility] [place], [place] [address] 06/09/2024 7:00 AM EDT Laboratory Lab Mobile Phlebotomy [facility] [address] [place], [place] [address] Mvmg, Gml Mobile Home Draw [address] [email or web address] [address] 06/16/2024 7:00 AM EDT Laboratory Lab Mobile Phlebotomy [facility] [address] [employer] [place], [place] [address] Mvmg, Gml Mobile Home Draw [address] [place], [place] [address] 06/23/2024 7:00 AM EDT Laboratory Lab Mobile Phlebotomy [facility] [address] [employer] [place], [place] [address] Mvmg, Gml Mobile Home Draw [address] [facility] [place], [place] [address] 06/23/2024 2:00 PM EDT Office Visit Hematology/Oncology [facility] [place] [address] [facility] [place], [place] [phone] Ayaka Tatum CRNP [address] [place] [address] [place] [address] 06/30/2024 7:00 AM EDT Laboratory Lab Mobile Phlebotomy [facility] [address] [employer] [place], [place] [address] Mvmg, Gml Mobile Home Draw [address] [facility] [place], [place] [address] 07/07/2024 7:00 AM EDT Laboratory Lab Mobile Phlebotomy [facility] [address] [place], [place] [address] Mvmg, Gml Mobile Home Draw [address] [place] [address] 07/14/2024 7:00 AM EDT Laboratory Lab Mobile Phlebotomy [facility] [address] [facility] [place] [address] Mvmg, Gml Mobile Home Draw [address] [place] [address] 07/21/2024 7:00 AM EDT Laboratory Lab Mobile Phlebotomy [facility] [address] [facility] [place] [address] Mvmg, Gml Mobile Home Draw [address] [place] [address] 07/28/2024 7:00 AM EDT Laboratory Lab Mobile Phlebotomy [facility] [address] [place] [address] Mvmg, Gml Mobile Home Draw [address] [place] [address] 08/04/2024 7:00 AM EDT Laboratory Lab Mobile Phlebotomy [facility] [address] [place] [address] Mvmg, Gml Mobile Home Draw [address] [place] [address] 08/11/2024 7:00 AM EDT Laboratory Lab Mobile Phlebotomy [facility] [address] [place] [address] Mvmg, Gml Mobile Home Draw [address] [place] [address] 08/18/2024 7:00 AM EDT Laboratory Lab Mobile Phlebotomy [facility] [address] [place] [address] Mvmg, Gml Mobile Home Draw [address] [place] [address] 08/20/2024 10:15 AM EDT Office Visit Ophthalmology, [facility] 132 [facility] [place] [address] Cody Gonzalez, DO [address] [facility] [place] [address] 08/25/2024 7:00 AM EDT Laboratory Lab Mobile Phlebotomy [facility] [address] [facility] [place] [address] Mvmg, Gml Mobile Home Draw [address] [facility] [place] [address] 09/01/2024 7:00 AM EDT Laboratory Lab Mobile Phlebotomy [facility] [address] [facility] [place] [address] Mvmg, Gml Mobile Home Draw [address] [place] [address] 09/08/2024 7:00 AM EDT Laboratory Lab Mobile Phlebotomy [facility] [address] [facility] [place] [address] Mvmg, Gml Mobile Home Draw [address] [facility] [place] [address] 09/15/2024 7:00 AM EDT Laboratory Lab Mobile Phlebotomy [facility] [address] [facility] [place] [address] Mvmg, Gml Mobile Home Draw [address] [place] [address] 09/22/2024 7:00 AM EDT Laboratory Lab Mobile Phlebotomy [facility] [address] [facility] [place] [address] Mvmg, Gml Mobile Home Draw [address] [place] [address] 09/29/2024 7:00 AM EDT Laboratory Lab Mobile Phlebotomy [facility] [address] [facility] [place] [address] Mvmg, Gml Mobile Home Draw [address] [place] [address] 10/06/2024 7:00 AM EST Laboratory Lab Mobile Phlebotomy [facility] [address] [facility] [place] [address] Mvmg, Gml Mobile Home Draw [address] [facility] [place] [address] 10/12/2024 10:20 AM EST Office Visit Pulmonary Medicine, [facility] [address] [place] [address] Jordan Stanley MD [address] [place] [address] 10/13/2024 7:00 AM EST Laboratory Lab Mobile Phlebotomy [facility] [address] [employer] [place] [address] Mvmg, Gml Mobile Home Draw [address] [employer] [place] [address] 10/20/2024 7:00 AM EST Laboratory Lab Mobile Phlebotomy [facility] [address] [employer] [facility], [place] [address] Mvmg, Gml Mobile Home Draw [address] [employer] [place] [address] 10/27/2024 7:00 AM EST Laboratory Lab Mobile Phlebotomy [facility] [address] [employer] [place] [address] Mvmg, Gml Mobile Home Draw [address] [employer] [place] [address] 10/30/2024 10:00 AM EST Office Visit Urology Lynnette Fitzpatrick [address] [place] [address] Frank Peraza MD [address] [place] [address] [place] [address] Scheduled Procedures Name Priority Associated Diagnoses Date/Ti [...] Additional history exists CKD PHOS USE SMARTSET 06748 05/08/202506/2024, 04/07/2024, 02/26/2024, Additional history exists CKD HGB USE SMARTSET 15166 05/12/202505/12, 05/11/2024, 05/11/2024, Additional history exists Sigmoidoscopy [...] this encounter Medical Devices Implanted Type Area Facing Grinder Device Identifier Shelf Expiration Date Model / Serial / Lot Clareon Iol Aspheric Hydrophobic Acrylic Iol Implanted:Qty: 1 on 04/23/2023 by Cody Gonzalez DO at OR [facility] Lens Left: Eye 11/12/2025 CNA0T0 / [id number] / Viatorr Tips Endoprosthesis 8-10 Mm X 8cm / 2cm Implanted:Qty: 1 on 10/07/2020 by Go Alvarado MD at [facility] Right: Abdomen 03/03/2023 [id number] / / [id number] Description:Viatorr TIPS End oprosthesis 8-10 mm x 8cm / 2cm, Manufactored by [employer] Syr Pf 2ml Embospheres 100-300 - [id number] Implanted:Qty: 1 on 04/18/2021 by Kevin Lim DO at OR [facility] Left: Abdomen [employer] [id number] 11/25/2023 S220GH / / [id number] Lipiodol Injection - [id number] Implanted:Qty: 1 on 03/28/2022 at [facility] [employer] 03/01/2023 34067-90 01-2 / / [id number] Syr Pf 2ml Embospheres 100-300 - [id number] Implanted:Qty: 1 on 03/28/2022 at [facility] [employer] [id number] 08/31/2024 S220GH / / [id number] -[id number] Clareon Iol Aspheric Hydrophobic Acrylic Iol Implanted:Qty: 1 on 04/02/2023 by Cody Gonzalez DO at OR [facility] Right: Eye JAZMIN 11/12/2025 CNA0T0 / [id number] / documented as of this encounter Advance Directives Documents on File Type Date Recorded 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
--- OUTSIDE RECORDS SUMMARY | 2024-05-20 09:09 | External Medical Summary | Summary of Care ---
Author Name Unknown Organization [facility] Address [address] [place] [address] Phone [phone] Care Team Providers Care Equal Opportunity Officer Name Role Phone Francisco Cisse MD Primary Care Provider + Reason for Visit * Reason Onset Date Comments Other 05/15/2024 Order needs faxe d Encounter Details Date Type Department Care Team (Late st Contact Info) Description 05/15/2024 Telephone Gastroenterology, [facility] 132 [facility] [place] [address] Services, Scheduling [address] [place] [address] Other (Order needs faxed) Allergies No known [...] mRNA, LNP-s, No Pre serve, 2-Dose Series (StyleFactory) 03/08/2021,02/15/2021 HepA Inact/HepB Recomb>=18yrs old 12/04/2019,04/2019,05/20/2019 11/19/2019 PPD 06/18/2017, 3,01/09/2012,06/2011 Pneumococcal Conjugate Vacc, 13 Valent (Prevnar) 05/01/2017 Pneumococcal Polysaccharide PPV23 (Pneumovax) 08/28/2022,10/25/2015,07/14/2012 Season Influenza, Quad, PF, Adjuvanted, 65+ Yrs, IM (FLUAD) 10/07/2020(Deferred: Patient Refused - pt says he already had his shot last month at [facility] Handy Lyons and Mckinley Cobian [...] 05/15/2024 11:57 AM EDT Order faxed to [facility] for paracentesis. CORNELIO Morales * Telephone Encounter - Kriss Mcclendon OSA - 05/15/2024 11:25 AM EDT Patient states that he needs an order for paracentisis faxed to [facility] before he can get a date and time Fax number is [phone] Please assist documented in this encounter Plan of Treatment Upcoming Encounters Date Type Department Care Team (Late st Contact Info) Description 05/18/2024 7:05 AM EDT [facility] [address] [place] [address] [facility] [address] [place] [address] 05/19/2024 9:20 AM EDT Office Visit [facility] [address] [address] Kristen Vences DO [address] [address] 2024 2:30 PM EDT Office Visit Urology Lynnette Fitzpatrick [address] [place] [address] [place] [address] Frank Peraza MD [address] [place] [address] [place] [address] 05/26/2024 7:05 AM EDT [facility] [address] [place] [address] [address] [facility] [address] [place] [address] 06/02/2024 7:00 AM EDT [facility] [address] [place] [address] [address] M[facility], [facility] [address] [place], [place] [address] 06/09/2024 7:00 AM EDT [facility] [address] [place] [address] [facility] [address] [place] [address] [address] 06/16/2024 7:00 AM EDT [facility] [address] [address] [facility] [address]20 [facility] [place] [address] 06/23/2024 7:00 AM EDT [facility] [address] [place], [place] [address] M[facility], [facility] [address] [facility] [place] [address] 06/23/2024 2:00 PM EDT Office Visit Hematology/Oncology [facility] [place] [address] [facility], [place] [address] Ayaka Tatum CRNP [address] [place] [address] [place] [address] 06/30/2024 7:00 AM EDT [facility] [address] [place] [address] M[facility], [facility] [address] [facility] [place] [address] 07/07/2024 7:00 AM EDT [facility] [address] [place], [place] [address] M[facility], [facility] [address] [facility] [place] [address] 07/14/2024 7:00 AM EDT [facility] [address] [place] [address] Mv[facility], [facility] [address] [facility] [place] [address] 07/21/2024 7:00 AM EDT [facility] [address] [place] [address] M[facility], [facility] [address] [place] [address] 07/28/2024 7:00 AM EDT [facility] [address] [place] [address] Mv[facility], [facility] [address] [facility] [place] [address] 08/04/2024 7:00 AM EDT [facility] [address] [facility] [place], [place] [address] Mvmg, [facility] [address] [facility] [place] [address] 08/11/2024 7:00 AM EDT Laboratory [facility] [address] [facility] [place] [address] Mv[facility], [facility] 2520 [place] [address] 08/18/2024 7:00 AM EDT Laboratory [facility] [address] [facility] [place], [place] [address] Mvmg, [facility] 25[address] [facility] [place], [place] [address] 08/20/2024 10:15 AM EDT Office Visit Ophthalmology, [facility] 132 [facility] [place] [address] Cody Gonzalez, [address] [place] [address] [place] [address] 08/25/2024 7:00 AM EDT Laboratory [facility] 25[address] [facility] [place], [place] [address] Mv[facility], [facility] 2520 [facility], [place] [address] 09/01/2024 7:00 AM EDT [facility] [address] [facility] [place], [place] [address] Mvmg, [facility] [address] [facility] [place] [address] 09/08/2024 7:00 AM EDT [facility] [address] [facility] [place] [address] Mv[facility], [facility] [address] [place] [address] 09/15/2024 7:00 AM EDT Laboratory [facility] [address] [facility] [place] [address] Mvmg, [facility] [address] [facility] [place] [address] 09/22/2024 7:00 AM EDT [facility] [address] [facility] [place] [address] Mvmg, [facility] [address] [facility] [place] [address] 09/29/2024 7:00 AM EDT [facility] [address] [facility] [place] [address] Mvmg, [facility] [address] [facility] [place] [address] 10/06/2024 7:00 AM EST [facility] [address] [facility] [place] [address] Mvmg, [facility] 2520 [place] [address] 10/12/2024 10:20 AM EST Office Visit Pulmonary Medicine, [facility] 132 [facility] [place] [address] Jordan Stanley [facility] [address] [facility] [address] 10/13/2024 7:00 AM EST [facility] [address] [facility] [place] [address] Mvmg, [facility] [address] [facility] [place] [address] 10/20/2024 7:00 AM EST [facility] [address] [facility] [place] [address] Mvmg, [facility] [address] [address] [address] 10/27/2024 7:00 AM EST [facility] [address] [place] [address] M[facility], [facility] 0 [facility] [place] [address] 10/30/2024 10:00 AM EST Office Visit Urology Lynnette Fitzpatrick [address] [place] [address] Frank Peraza MD [address] [place] [address] [place] [address] Scheduled Orders Name Type Priority Associated Diagnoses [...] Additional history exists CKD PHOS USE SMARTSET 43087 05/08/202506/2024, 04/07/2024, 02/26/2024, Additional history exists CKD HGB USE SMARTSET 21354 05/12/202505/12, 05/11/2024, 05/11/2024, Additional history exists Sigmoidoscopy [...] encounter Medical Devices Implanted Type Area Clinical Transformation Specialist Device Identifier Shelf Expiration Date Model / Serial / Lot Clareon Iol Aspheric Hydrophobic Acrylic Iol Implanted:Qty: 1 on 04/23/2023 by Cody Gonzalez DO at OR [facility] Lens Left: Eye 11/12/2025 CNA0T0 / [id number] / Viatorr Tips Endoprosthesis 8-10 Mm X 8cm / 2cm Implanted:Qty: 1 on 10/07/2020 by Go Alvarado MD at [facility] Right: Abdomen 03/03/2023 [id number] / / [id number] Description:Viatorr TIPS End oprosthesis 8-10 mm x 8cm / 2cm, Manufactored by [employer] Syr Pf 2ml Embospheres 100-300 - [id number] Implanted:Qty: 1 on 04/18/2021 by Kevin Lim DO at OR [facility] Left: Abdomen [employer] [id number] 11/25/2023 S220GH / / [id number] Lipiodol Injection - [id number] Implanted:Qty: 1 on 03/28/2022 at [facility] [employer] 03/01/2023 05479-35 01-2 / / [id number] Syr Pf 2ml Embospheres 100-300 - [id number] Implanted:Qty: 1 on 03/28/2022 at [facility] [employer] [id number] 08/31/2024 S220GH / / [id number] -[id number] Clareon Iol Aspheric Hydrophobic Acrylic Iol Implanted:Qty: 1 on 04/02/2023 by Cody Gonzalez DO at OR [facility] Right: Eye JAZMIN 11/12/2025 CNA0T0 / [id number] / documented as of this encounter Visit Diagnoses Diagnosis Cirrhosis of liver with ascites, unspecified hepatic cirrhosis type (HCC)- Primary FOFANA (nonalcoholic steatohepatitis) Other chronic nonalcoholic liver disease documented in this encounter Advance Directives Documents on File Type Date Recorded Patient Rollout Manager Expl anation Advance Directives and Living Will 12/11/2022 ADVANCE DIRECTIVE / LIVING WILL LIVING WILL Power of Paper Cone Grader 12/11/2022 POWER OF A TTORNEY * Full [...] Discussed due to patient's condition Care Teams Equal Opportunity Officer Relationship Specialty Start Date End Date Francisco Cisse MD [address] [place] [address] PCP - General Internal Medicine 09/04/21 documented as of this encounter
--- OUTSIDE RECORDS SUMMARY | 2024-05-20 09:10 | External Medical Summary | Summary of Care ---
Author Name Unknown Organization [facility] [address] [address] Phone [phone] Care Team Providers Care Physical Science Aide Name Role Phone Francisco Cisse MD Primary Care Provider + Reason for Visit * Reason Onset Date Comments Advice 05/15/2024 Encounter Details Date Type Department Care Team (Late st Contact Info) Description 05/15/2024 Telephone Gastroenterology, [facility] [address] [place] [address] Lamar Tatum CRNP [address] [place] [address] Advice Allergies No known active allergiesdocumented as [...] mRNA, LNP-s, No Pre serve, 2-Dose Series ([employer]ounge[employer]) 03/08/2021,02/15/2021 HepA Inact/HepB Recomb>=18yrs old 12/04/2019,04/2019,05/20/2019 11/19/2019 [...] encounter Miscellaneous Notes * Telephone Encounter - Cristina Alexander OSA - 05/15/2024 9:48 AM EDT Please schedule accordingly. It would not let me schedule. * Telephone Encounter - Velasquez Thomson LPN - 05/15/2024 8:35 AM EDT [facility] Interventional Radiology called and stated that the pt is requesting a paracentesis[the pt hasa standing order]. They stated that the provider that does these is out until 05/23 and they are wondering if the pt can have this done at [facility]. Please Advise. option 1 and then option 3 This is the call back information for Interventional Radiology documented in this encounter Plan of Treatment Upcoming Encounters Date Type Department Care Team (Late st Contact Info) Description 05/18/2024 7:05 AM EDT Laboratory [facility] [address] [place] [address] [address] M[facility], [facility] Draw 2520 [facility] [place] [address] 05/19/2024 9:20 AM EDT Office Visit [facility] [address] [address] Kristen Vences DO [address] [address] [address] 2024 2:30 PM EDT Office Visit Urology Lynnette Fitzpatrick [address] [place] [address] [place] [address] Frank Peraza MD [address] [place] [address] [place] [address] 05/26/2024 7:05 AM EDT [facility] [address] [place] [address] Mvmg, Gml Mobile Home Draw [facility] [place] [address] 06/02/2024 7:00 AM EDT [facility] [address] [address] Mvmg, [facility] [address] [place] [address] 06/09/2024 7:00 AM EDT [facility] [address] [address] Mv[facility], [facility] [address] [place] [address] [place] [address] 06/16/2024 7:00 AM EDT [facility] [address] [place], [place] [address] M[facility], [facility] [address] [place], [place] [address] 06/23/2024 7:00 AM EDT [facility] [address] [place], [place] [address] Mv[facility], [facility] [address] [place], [place] [address] 06/23/2024 2:00 PM EDT Office Visit Hematology/Oncology [facility] [place] [address] [place], [place] [id number] Ayaka Tatum, JEFF [address] [place], [place] [address] [address] 06/30/2024 7:00 AM EDT [facility] [address] [place], [place] [address] Mv[facility], [facility] [address] [place], [place] [address] 07/07/2024 7:00 AM EDT [facility] [address] [place], [place] [address] Mv[facility], [facility] [address] [place], [place] [address] 07/14/2024 7:00 AM EDT [facility] [address] [place], [place] [address] Mvmg, [facility] [address] [place] [address] 07/21/2024 7:00 AM EDT Laboratory [facility] [address] [place], [place] [address] Mvmg, [facility] [address] [place], [place] [address] 07/28/2024 7:00 AM EDT Laboratory [facility] [address] [facility] [place], [place] [address] Mvmg, [facility] Draw [address] [facility] [place] [address] 08/04/2024 7:00 AM EDT Laboratory [facility] [address] [facility] [place] [address] Mvmg, [facility] [address] [facility] [place] [address] 08/11/2024 7:00 AM EDT Laboratory [facility] [address] [employer] [place], [place] [address] Mvmg, [facility] 25[address] [facility] [place] [address] 08/18/2024 7:00 AM EDT Laboratory [facility] [address] [place], [place] [address] Mv[facility], [facility] 25[address] [facility] [place] [address] 08/20/2024 10:15 AM EDT Office Visit Ophthalmology, [facility] 132 [facility] [place] [address] Cody Gonzalez, DO [facility] [address] 08/25/2024 7:00 AM EDT Laboratory [facility] [address] [facility] [facility] [place], [place] [address] Mvmg, [facility] 2520 [facility] [place], [place] [address] 09/01/2024 7:00 AM EDT Laboratory [facility] [address] [place], [place] [address] Mvmg, [facility] Draw 25[address] [facility] [place], [place] [address] 09/08/2024 7:00 AM EDT Laboratory [facility] [address] [place] [employer] [place] [address] Mvmg, Gml [facility] Draw 2520 [place] [address] 09/15/2024 7:00 AM EDT Laboratory [facility] [address] [place] [address] Mvmg, G[facility] Draw 2520 [place] [address] 09/22/2024 7:00 AM EDT Laboratory [facility] [address] [place] [address] Mvmg, Gml [facility] Draw 2520 [place] [address] 09/29/2024 7:00 AM EDT Laboratory [facility] [address] [place] [address] Mvmg, Gml [facility] Draw 2520 [place] [address] 10/06/2024 7:00 AM EST Laboratory [facility] [address] [place] [address] Mvmg, [facility] Draw 2520 [place] [address] 10/12/2024 10:20 AM EST Office Visit Pulmonary Medicine, [facility] 132 [facility] [place] [address] Jordan Stanley MD [address] [place] [address] 10/13/2024 7:00 AM EST Laboratory [facility] [address] [place] [address] Mvmg, [facility] Draw [address] [place] [address] 10/20/2024 7:00 AM EST Laboratory [facility] 25[address] [facility] [place], [place] [address] Mvmg, Gml [facility] Draw 25[address] [facility] [place], [place] [address] 10/27/2024 7:00 AM EST Laboratory [facility] 25[address] [facility] [place] [address] Mvmg, Gml [facility] Draw 2520 [facility] [place], [place] [address] 10/30/2024 10:00 AM EST Office Visit Urology Lynnette Fitzpatrick [address] [place] [address] [place] [address] Frank Peraza MD [address] [place] [address] [place] [address] Scheduled Procedures Name Priority Associated Diagnoses Date/Ti [...] 09/11/2021, Additional history exists Colonoscopy 08/09/2024 08/09/2023, 12/0 06/2022, 11/07/2022, Additional history exists Colorectal Cancer Screening 08/09/2024 HbA1c 10/08/2024 04/07/2024, 11/02, 05/28/2023, Additional history exists GFR 11/11/2024 05/12/2024, 05/02, 05/10/2024, Additional history exists CKD PHOS USE SMARTSET 29615 05/08/202506/2024, 04/07/2024, 02/26/2024, Additional history exists CKD HGB USE SMARTSET 425[address] 05/12/202505/12, 05/11/2024, 05/11/2024, Additional history exists Sigmoidoscopy [...] this encounter Medical Devices Implanted Type Area Levers Lace Machine Operator Device Identifier Shelf Expiration Date Model / Serial / Lot Clareon Iol Aspheric Hydrophobic Acrylic Iol Implanted:Qty: 1 on 04/23/2023 by Cody Gonzalez DO at OR [facility] Lens Left: Eye 11/12/2025 CNA0T0 / [id number] / Viatorr Tips Endoprosthesis 8-10 Mm X 8cm / 2cm Implanted:Qty: 1 on 10/07/2020 by Go Alvarado MD at [facility] Right: Abdomen 03/03/2023 [id number] / / [id number] Description:Viatorr TIPS End oprosthesis 8-10 mm x 8cm / 2cm, Manufactored by [employer] Syr Pf 2ml Embospheres 100-300 - [id number] Implanted:Qty: 1 on 04/18/2021 by Kevin Lim DO at OR [facility] Left: Abdomen [employer] [id number] 11/25/2023 S220GH / / [id number] Lipiodol Injection - [id number] Implanted:Qty: 1 on 03/28/2022 at [facility] [employer] 03/01/2023 [address]2559-23 01-2 / / [id number] Syr Pf 2ml Embospheres 100-300 - [id number] Implanted:Qty: 1 on 03/28/2022 at [facility] [employer] [id number] 08/31/2024 S220GH / / [id number] -[id number] Clareon Iol Aspheric Hydrophobic Acrylic Iol Implanted:Qty: 1 on 04/02/2023 by Cody Gonzalez DO at OR [facility] Right: Eye JAZMIN 11/12/2025 CNA0T0 / [id number] / documented as of this encounter Advance Directives Documents on File Type Date Recorded Patient Accounting Support Specialist Expl anation Advance Directives and Living Will 12/11/2022 ADVANCE DIRECTIVE / LIVING WILL LIVING WILL Power of Mental Health Tech 12/11/2022 POWER OF A TTORNEY * Full [...] Discussed due to patient's condition Care Teams Physical Science Aide Relationship Specialty Start Date End Date Francisco Cisse MD [address] [place] [address] PCP - General Internal Medicine 09/04/21 documented as of this encounter
--- OUTSIDE RECORDS SUMMARY | 2024-05-20 09:10 | External Medical Summary | Summary of Care ---
Author Name Unknown Organization [facility] Address [address] [address] Phone [phone] Care Team Providers Care Advertising Photographer Name Role Phone Francisco Cisse MD Primary Care Provider + Reason for Visit * Reason Onset Date Comments Advice 05/15/2024 Encounter Details Date Type Department Care Team (Late st Contact Info) Description 05/15/2024 Telephone Gastroenterology, [facility] [address] [place] [address] Lamar Tatum CRNP [address] [place] [address] Advice Allergies No known active allergiesdocumented as of this encounter (statuses as of 05/15/2024) Medications Medication Sig Dispensed Refills Start Date End Date Status OneTouch Verio In Vitro Strip (Glucose Blood)Indications:Ty pe 2 diabetes mellitus with hemoglobin A1c goal of less than 7.0% ([facility]) Use to test blood [...] mRNA, LNP-s, No Pre serve, 2-Dose Series (Apieron) 03/08/2021,02/15/2021 HepA Inact/HepB Recomb>=18yrs old 12/04/2019,04/2019,05/20/2019 11/19/2019 PPD 06/18/2017, 3,01/09/2012,06/2011 Pneumococcal Conjugate Vacc, 13 Valent (Prevnar) 05/01/2017 Pneumococcal Polysaccharide PPV23 (Pneumovax) 08/28/2022,10/25/2015,07/14/2012 Season Influenza, Quad, PF, Adjuvanted, 65+ Yrs, IM (FLUAD) 10/07/2020(Deferred: Patient Refused - pt says he already had his shot last month at [facility] Handy Lyons and Mckinley Cobian made [...] Thomson LPN - 05/15/2024 8:35 AM EDT [facility] Interventional Radiology called and stated that the pt is requesting a paracentesis[the pt hasa standing order]. They stated that the provider that does these is out until 05/23 and they are wondering if the pt can have this done at [facility]. Please Advise. option 1 and then option 3 This is the call back information for Interventional Radiology documented in this encounter Plan of Treatment Upcoming Encounters Date Type Department Care Team (Late st Contact Info) Description 05/18/2024 7:05 AM EDT Laboratory Lab Mobile Phlebotomy [facility] [address] [place] [place] [address] Mvmg, [facility] Home Draw 2520 [facility] [place] [address] 05/19/2024 9:20 AM EDT Office Visit [facility] [address] [address] [address] Kristen Vences DO [address] [place] [address] 2024 2:30 PM EDT Office Visit Urology Lynnette Fitzpatrick [address] [place] [address] Frank Peraza MD [address] [place] [address] [place] [address] 05/26/2024 7:05 AM EDT Laboratory Lab Mobile Phlebotomy [facility] [address] [place] [address] Mvmg, Gml Mobile Home Draw [facility] [place] [address] 06/02/2024 7:00 AM EDT Laboratory Lab Mobile Phlebotomy [facility] [address] [place] [place] [address] Mvmg, Gml Mobile Home Draw [address] [place] [address] 06/09/2024 7:00 AM EDT Laboratory Lab Mobile Phlebotomy [facility] [address] [place] [address] Mvmg, Gml Mobile Home Draw [address] [place] [place] [address] 06/16/2024 7:00 AM EDT Laboratory Lab Mobile Phlebotomy [facility] [address] [place], [place] [address] Mvmg, Gml Mobile Home Draw [address] [place], [place] [address] 06/23/2024 7:00 AM EDT Laboratory Lab Mobile Phlebotomy [facility] [address] [place], [place] [address] Mvmg, Gml Mobile Home Draw [address] [place], [place] [address] 06/23/2024 2:00 PM EDT Office Visit Hematology/Oncology George Blankenship [place] [address] [place], [place] [id number] Ayaka Tatum, JEFF [address] [place], [place] [address]J[place] [address] 06/30/2024 7:00 AM EDT Laboratory Lab Mobile Phlebotomy [facility] [address] [place], [place] [address] Mvmg, Gml Mobile Home Draw [address] [place], [place] [address] 07/07/2024 7:00 AM EDT Laboratory Lab Mobile Phlebotomy [facility] [address] [place], [place] [address] Mvmg, Gml Mobile Home Draw [address] [place], [place] [address] 07/14/2024 7:00 AM EDT Laboratory Lab Mobile Phlebotomy [facility] [address] [place], [place] [address] Mvmg, Gml Mobile Home Draw [address] [place] [address] 07/21/2024 7:00 AM EDT Laboratory Lab Mobile Phlebotomy [facility] [address] [place], [place] [address] Mvmg, Gml Mobile Home Draw [address] [place], [place] [address] 07/28/2024 7:00 AM EDT Laboratory Lab Mobile Phlebotomy [facility] [address] [facility] [place], [place] [address] Mvmg, Gml Mobile Home Draw [address] [facility] [place] [address] 08/04/2024 7:00 AM EDT Laboratory Lab Mobile Phlebotomy [facility] [address] [facility] [place] [address] Mvmg, Gml Mobile Home Draw [address] [facility] [place] [address] 08/11/2024 7:00 AM EDT Laboratory Lab Mobile Phlebotomy [facility] [address] [place], [place] [address] Mvmg, Gml Mobile Home Draw 2520 [facility] [place] [address] 08/18/2024 7:00 AM EDT Laboratory Lab Mobile Phlebotomy [facility] [address] [place] [address] [place], [place] [address] Mvmg, Gml Mobile Home Draw 2520 [facility] [place] [address] 08/20/2024 10:15 AM EDT Office Visit Ophthalmology, [facility] 132 [facility] [place] [address] Cody Gonzalez, DO 21 [facility] [address] 08/25/2024 7:00 AM EDT Laboratory Lab Mobile Phlebotomy [facility] [address] [employer] [facility] [place], [place] [address] Mvmg, Gml Mobile Home Draw 2520 [facility] [place], [place] [address] 09/01/2024 7:00 AM EDT Laboratory Lab Mobile Phlebotomy [facility] [address] [place], [place] [address] Mvmg, Gml Mobile Home Draw 2520 [facility] [place], [place] [address] 09/08/2024 7:00 AM EDT Laboratory Lab Mobile Phlebotomy [facility] [address] [place] [facility] [facility] [place] [address] Mvmg, Gml Mobile Home Draw 2520 [facility] [place] [address] 09/15/2024 7:00 AM EDT Laboratory Lab Mobile Phlebotomy [facility] [address]20 [facility] [place] [address] Mvmg, Gml Mobile Home Draw 2520 [facility] [place] [address] 09/22/2024 7:00 AM EDT Laboratory Lab Mobile Phlebotomy [facility] [address] [facility] [place] [address] Mvmg, Gml Mobile Home Draw 2520 [facility] [place] [address] 09/29/2024 7:00 AM EDT Laboratory Lab Mobile Phlebotomy [facility] [address] [facility] [place] [address] Mvmg, Gml Mobile Home Draw 2520 [facility] [place] [address] 10/06/2024 7:00 AM EST Laboratory Lab Mobile Phlebotomy [facility] [address] [facility] [place] [address] Mvmg, Gml Mobile Home Draw 2520 [facility] [place] [address] 10/12/2024 10:20 AM EST Office Visit Pulmonary Medicine, [facility] [address] [facility] [place] [address] Jordan Stanley MD [address] [place] [address] 10/13/2024 7:00 AM EST Laboratory Lab Mobile Phlebotomy [facility] [address] [facility] [place] [address] Mvmg, Gml Mobile Home Draw [address]20 [facility] [place] [address] 10/20/2024 7:00 AM EST Laboratory Lab Mobile Phlebotomy [facility] 25[address] [facility] [place], [place] [address] Mvmg, Gml Mobile Home Draw 2520 [facility] [place], [place] [address] 10/27/2024 7:00 AM EST Laboratory Lab Mobile Phlebotomy [facility] [address] [facility] [place] [address] Mvmg, Gml Mobile Home Draw 2520 [facility] [place], [place] [address] 10/30/2024 10:00 AM EST Office Visit Urology Lynnette Fitzpatrick [address] [place] [address] Frank Peraza MD [address] [place] [address] Scheduled Procedures Name Priority Associated Diagnoses Date/Ti [...] Additional history exists CKD PHOS USE SMARTSET 77659 05/08/202506/2024, 04/07/2024, 02/26/2024, Additional history exists CKD HGB USE SMARTSET 75860 05/12/202505/12, 05/11/2024, 05/11/2024, Additional history exists Sigmoidoscopy [...] this encounter Medical Devices Implanted Type Area Cloud Software Engineer Device Identifier Shelf Expiration Date Model / Serial / Lot Clareon Iol Aspheric Hydrophobic Acrylic Iol Implanted:Qty: 1 on 04/23/2023 by Cody Gonzalez DO at OR [facility] Lens Left: Eye 11/12/2025 CNA0T0 / [id number] / Viatorr Tips Endoprosthesis 8-10 Mm X 8cm / 2cm Implanted:Qty: 1 on 10/07/2020 by Go Alvarado MD at [facility] Right: Abdomen 03/03/2023 [id number] / / [id number] Description:Viatorr TIPS End oprosthesis 8-10 mm x 8cm / 2cm, Manufactored by [employer] Syr Pf 2ml Embospheres 100-300 - [id number] Implanted:Qty: 1 on 04/18/2021 by Kevin Lim DO at [facility] Left: Abdomen [employer] MEDICAL [employer] [id number] 11/25/2023 S220GH / / [id number] Lipiodol Injection - [id number] Implanted:Qty: 1 on 03/28/2022 at [facility] [employer] 03/01/2023 [id number] 01-2 / / [id number] Syr Pf 2ml Embospheres 100-300 - [id number] Implanted:Qty: 1 on 03/28/2022 at [facility] [employer] [id number] 08/31/2024 S220GH / / [id number] Clareon Iol Aspheric Hydrophobic Acrylic Iol Implanted:Qty: 1 on 04/02/2023 by Cody Gonzalez DO at [facility] Right: Eye JAZMIN 11/12/2025 CNA0T0 / [id number] / documented as of this encounter Advance Directives Documents on File Type Date Recorded Patient Color Corrector Expl anation Advance Directives and Living Will 12/11/2022 ADVANCE DIRECTIVE / LIVING WILL LIVING WILL Power of It Security Engineer 12/11/2022 POWER OF A TTORNEY * [...] Discussed due to patient's condition Care Teams Advertising Photographer Relationship Specialty Start Date End Date Francisco Cisse MD [address] [place] [address] PCP - General Internal Medicine 09/04/21 documented as of this encounter
--- OUTSIDE RECORDS SUMMARY | 2024-05-20 09:10 | External Medical Summary | Summary of Care ---
Author Name Unknown Organization [facility] Address [address] [address] Phone [phone] Care Team Providers Care Studio Artist Name Role Phone Francisco Cisse MD Primary Care Provider + Reason for Visit * Reason Onset Date Comments Order Request 05/14/2024 Encounter Details Date Type Department Care Team (Late st Contact Info) Description 05/14/2024 Telephone Gastroenterology, [facility] [address] [place] [address] Lamar Tatum CRNP [address] [place] [address] Order Request Allergies No known active allergiesdocumented [...] mRNA, LNP-s, No Pre serve, 2-Dose Series (MiTú) 03/08/2021,02/15/2021 HepA Inact/HepB Recomb>=18yrs old 12/04/2019,04/2019,05/20/2019 11/19/2019 [...] Telephone Encounter - Carmen Longo CMA - 05/14/2024 1:10 PM EDT Pt requesting an appt for paracentesis.Pt has a standing order for paracentesis. Called [facility] spoke with Inga she will contact pt to schedule. Pt notified [facility] will contact him with appt info. CORNELIO Morales * Telephone Encounter - Maura Maria OSA - 05/14/2024 11:14 AM EDT Patient Is asking for Lamar Tatum to order a paracentesis and have it scheduled due to the fluidin his abdomen again. Patient had one 2 week ago. documented in this encounter Plan of Treatment Upcoming Encounters Date Type Department Care Team (Late st Contact Info) Description 05/18/2024 7:05 AM EDT Laboratory Lab Mobile Phlebotomy [facility] [address] [employer] [place] [place] [address] Mvmg, Gml Mobile Home Draw [address] [place] [address] 05/19/2024 9:20 AM EDT Office Visit Family Practice [facility] [address] [place] [address] Kristen Vences DO [address] [place] [address] 2024 2:30 PM EDT Office Visit UrologLynnette Solares [address] [place] [address] Frank Peraza MD [address] [place] [address] 05/26/2024 7:05 AM EDT Laboratory Lab Mobile Phlebotomy [facility] [address] [employer] [address] [place] [address] Mvmg, Gml Mobile Home Draw [address] [place], [place] [address] 06/02/2024 7:00 AM EDT Laboratory Lab Mobile Phlebotomy [facility] [address] [employer] [address] [place] [address] Mvmg, Gml Mobile Home Draw [address] [place], [place] [address] 06/09/2024 7:00 AM EDT Laboratory Lab Mobile Phlebotomy [facility] [address] [place] [address] [address] Mvmg, Gml Mobile Home Draw [address] [employer] [place], [place] [address] 06/16/2024 7:00 AM EDT Laboratory Lab Mobile Phlebotomy [facility] [address] [place] [address] Mvmg, Gml Mobile Home Draw [address] [place] [employer] [place], [place] [address] 06/23/2024 7:00 AM EDT Laboratory Lab Mobile Phlebotomy [facility] [address] [place], [place] [address] Mvmg, Gml Mobile Home Draw [address] [place] [employer] [place], [place] [address] 06/23/2024 2:00 PM EDT Office Visit Hematology/Oncology George Blankenship [place] 200 [facility] [place], [place] [address] Ayaka Tatum CRNP [address] [place], [place] [address]J[place] [address] 06/30/2024 7:00 AM EDT Laboratory Lab Mobile Phlebotomy [facility] [address] [place], [place] [address] Mvmg, Gml Mobile Home Draw [address] [place] [address] 07/07/2024 7:00 AM EDT Laboratory Lab Mobile Phlebotomy [facility] [address] [place], [place] [address] Mvmg, Gml Mobile Home Draw 2520 [facility] [place] [address] 07/14/2024 7:00 AM EDT Laboratory Lab Mobile Phlebotomy [facility] [address] [place] [address] Mvmg, Gml Mobile Home Draw [address] [place] [address] 07/21/2024 7:00 AM EDT Laboratory Lab Mobile Phlebotomy [facility] [address] [place] [address] Mvmg, Gml Mobile Home Draw [address] [place] [address] 07/28/2024 7:00 AM EDT Laboratory Lab Mobile Phlebotomy [facility] [address] [place] [address] Mvmg, Gml Mobile Home Draw 25[address] [facility] [place] [address] 08/04/2024 7:00 AM EDT Laboratory Lab Mobile Phlebotomy [facility] [address] [facility] [place] [address] Mvmg, Gml Mobile Home Draw 25[address] [facility] [place] [address] 08/11/2024 7:00 AM EDT Laboratory Lab Mobile Phlebotomy [facility] [address] [employer] [facility] [place] [address] Mvmg, Gml Mobile Home Draw 2520 [facility] [place] [address] 08/18/2024 7:00 AM EDT Laboratory Lab Mobile Phlebotomy [facility] [address] [employer] [facility] [place] [address] Mvmg, Gml Mobile Home Draw 25[address] [facility] [place] [address] 08/20/2024 10:15 AM EDT Office Visit Ophthalmology, [facility] 132 [facility] [place]EMUS [id number] Cody Gonzalez, DO [facility] [address] 08/25/2024 7:00 AM EDT Laboratory Lab Mobile Phlebotomy [facility] [address] [place] [employer] [place], [place] [address] Mvmg, Gml Mobile Home Draw 25[address] [facility] [place] [address] 09/01/2024 7:00 AM EDT Laboratory Lab Mobile Phlebotomy [facility] [address] [facility] [place], [place] [address] Mvmg, Gml Mobile Home Draw 2520 [facility] [place], [place] [address] 09/08/2024 7:00 AM EDT Laboratory Lab Mobile Phlebotomy [facility] [address] [facility] [place] [address] Mvmg, Gml Mobile Home Draw [address] [facility] [place] [address] 09/15/2024 7:00 AM EDT Laboratory Lab Mobile Phlebotomy [facility] [address] [employer] [place], [place] [address] Mvmg, Gml Mobile Home Draw 2520 [facility] [place] [address] 09/22/2024 7:00 AM EDT Laboratory Lab Mobile Phlebotomy [facility] [address] [place] [address] Mvmg, Gml Mobile Home Draw 2520 [facility] [place] [address] 09/29/2024 7:00 AM EDT Laboratory Lab Mobile Phlebotomy [facility] [address] [place] [address] Mvmg, Gml Mobile Home Draw 2520 [facility] [place], [place] [address] 10/06/2024 7:00 AM EST Laboratory Lab Mobile Phlebotomy [facility] [address] [place] [address] [place], [place] [address] Mvmg, Gml Mobile Home Draw 2520 [facility] [place], [place] [address] 10/12/2024 10:20 AM EST Office Visit Pulmonary Medicine, [facility] 132 [facility] [place] [address] Jordan Stanley MD [address] [facility] [place] [address] 10/13/2024 7:00 AM EST Laboratory Lab Mobile Phlebotomy [facility] [address] [place], [place] [address] Mvmg, Gml Mobile Home Draw [address] [place], [place] [address] 10/20/2024 7:00 AM EST Laboratory Lab Mobile Phlebotomy [facility] [address] [place], [place] [address] Mvmg, Gml Mobile Home Draw 2520 [facility] [place], [place] [address] 10/27/2024 7:00 AM EST Laboratory Lab Mobile Phlebotomy [facility] [address] [facility] [place] [address] Mvmg, Gml Mobile Home Draw 0 [facility] [place] [address] 10/30/2024 10:00 AM EST Office Visit Urology Lynnette Fitzpatrick [address] [place] [address] Frank Peraza MD [address] [place] [address] Scheduled Procedures Name Priority Associated Diagnoses Date/Ti [...] Additional history exists CKD PHOS USE SMARTSET 09537 05/08/2025 06/0 06/2024, 04/07/2024, 02/26/2024, Additional history exists CKD HGB USE SMARTSET 87304 05/12/202505/12, 05/11/2024, 05/11/2024, Additional history exists Sigmoidoscopy [...] encounter Medical Devices Implanted Type Area Supervisor Motorcycle Repair Shop Device Identifier Shelf Expiration Date Model / Serial / Lot Clareon Iol Aspheric Hydrophobic Acrylic Iol Implanted:Qty: 1 on 04/23/2023 by Cody Gonzalez DO at [facility] Lens Left: Eye 11/12/2025 CNA0T0 / [id number] / Viatorr Tips Endoprosthesis 8-10 Mm X 8cm / 2cm Implanted:Qty: 1 on 10/07/2020 by Go Alvarado MD at [facility] Right: Abdomen 03/03/2023 [id number] / / [id number] Description:Viatorr TIPS End oprosthesis 8-10 mm x 8cm / 2cm, Manufactored by [employer] Syr Pf 2ml Embospheres 100-300 - [id number] Implanted:Qty: 1 on 04/18/2021 by Kevin Lim DO at OR [facility] Left: Abdomen [employer] [id number] 11/25/2023 S220GH / / [id number] Lipiodol Injection - [id number] Implanted:Qty: 1 on 03/28/2022 at [facility] [employer] 03/01/2023 21834-86 01-2 / / [id number] Syr Pf 2ml Embospheres 100-300 - [id number] Implanted:Qty: 1 on 03/28/2022 at [facility] [employer] [id number] 08/31/2024 S220GH / / [id number] -[id number] Clareon Iol Aspheric Hydrophobic Acrylic Iol Implanted:Qty: 1 on 04/02/2023 by Cody Gonzalez DO at OR [facility] Right: Eye JAZMIN 11/12/2025 CNA0T0 / [id number] / documented as of this encounter Advance Directives Documents on File Type Date Recorded 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 [place] [address] PCP - General Internal Medicine 09/04/21 documented as of this encounter
--- OUTSIDE RECORDS SUMMARY | 2024-05-20 09:10 | External Medical Summary | Summary of Care ---
Author Name Unknown Organization [facility] Address [address] [facility] [address] Phone [phone] Care Team Providers Care Flower Stripper Name Role Phone Francisco Cisse MD Primary Care Provider + Reason for Visit * Reason Onset Date Comments Advice 05/15/2024 Encounter Details Date Type Department Care Team (Late st Contact Info) Description 05/15/2024 Telephone Gastroenterology, [facility] [address] [place] [address] Lamar Tatum CRNP [address] [place] [address] Advice Allergies No known active allergiesdocumented as [...] mRNA, LNP-s, No Pre serve, 2-Dose Series ([employer]) 03/08/2021,02/15/2021 HepA Inact/HepB Recomb>=18yrs old 12/04/2019,04/2019,05/20/2019 [...] 8:35 AM EDT [facility] Interventional Radiology called and stated that the pt is requesting a paracentesis[the pt hasa standing order]. They stated that the provider that does these is out until 05/23 and they are wondering if the pt can have this done at [facility] [address]. Please Advise. option 1 and then option 3 This is the call back information for Interventional Radiology documented in this encounter Plan of Treatment Upcoming Encounters Date Type Department Care Team (Late st Contact Info) Description 05/18/2024 7:05 AM EDT Laboratory Lab Mobile Phlebotomy [facility] [address] [place] [place] [address] Mvmg, [facility] Draw [address] [facility] [place] [address] 05/19/2024 9:20 AM EDT Office Visit [facility] [address] [address] Kristen Vences DO [address] [address] 2024 2:30 PM EDT Office Visit Urology Lynnette Fitzpatrick [address] [place] [address] Frank Peraza MD [address] [place] [address] 05/26/2024 7:05 AM EDT Laboratory Lab Mobile Phlebotomy [facility] [address] [place] [address] Mvmg, Gml Mobile Home Draw [facility] [address] [place] [address] 06/02/2024 7:00 AM EDT Laboratory Lab [facility] Ph[facility]bot[facility] [address] [address] Mvmg, Gml [facility] Draw [address] [place] [address] [place] [address] 06/09/2024 7:00 AM EDT Laboratory Lab Mobile Phlebot[facility] [address] [address] Mvmg, Gml [facility] Draw [address] [place] [address] 06/16/2024 7:00 AM EDT Laboratory Lab Mobile Phlebot[facility] [address] [place], [place] [address] Mvmg, Gml [facility] Draw [address] [place], [place] [address] 06/23/2024 7:00 AM EDT Laboratory [facility] [address] [place], [place] [address] Mvmg, Gml [facility] Draw [address] [place], [place] [address] 06/23/2024 2:00 PM EDT Office Visit Hematology/Oncology George Blankenship [place] [address] [place], [place] [phone] Ayaka Tatum, JEFF [address] [place], [place] [address]J[place] [address] 06/30/2024 7:00 AM EDT Laboratory Lab Mobile Phlebotomy [facility] [address] [place], [place] [address] Mvmg, Gml Mobile Home Draw [address] [place], [place] [address] 07/07/2024 7:00 AM EDT Laboratory Lab [facility] Phlebotomy [facility] [address] [place], [place] [address] Mvmg, Gml Mobile Home Draw [address] [place], [place] [address] 07/14/2024 7:00 AM EDT Laboratory Lab Mobile Phlebotomy [facility] [address] [place], [place] [address] Mvmg, Gml [facility] Draw [address] [place] [address] 07/21/2024 7:00 AM EDT Laboratory Lab Mobile Phlebotomy [facility] [address] [place], [place] [address] Mvmg, Gml [facility] Draw [address] [place], [place] [address] 07/28/2024 7:00 AM EDT Laboratory Lab Mobile Phlebotomy [facility] [address] [facility] [place], [place] [address] Mvmg, Gml Mobile Home Draw [address] [facility] [place] [address] 08/04/2024 7:00 AM EDT Laboratory Lab Mobile Phlebotomy [facility] [address] [facility] [place] [address] Mvmg, Gml Mobile Home Draw [address] [facility] [place] [address] 08/11/2024 7:00 AM EDT Laboratory Lab Mobile Phlebotomy [facility] [address] [employer] [place], [place] [address] Mvmg, Gml Mobile Home Draw [address] [facility] [place] [address] 08/18/2024 7:00 AM EDT Laboratory Lab [facility] Phlebotomy [facility] [address] [place], [place] [address] Mvmg, Gml Mobile Home Draw [address] [facility] [place] [address] 08/20/2024 10:15 AM EDT Office Visit Ophthalmology, [facility] 132 [facility] [place] [address] Cody Gonzalez, DO 21 [facility] [address] 08/25/2024 7:00 AM EDT Laboratory Lab Mobile Phlebotomy [facility] [address] [employer] [facility] [place], [place] [address] Mvmg, Gml Mobile Home Draw 2520 [facility] [place], [place] [address] 09/01/2024 7:00 AM EDT Laboratory Lab Mobile Phlebotomy [facility] [address] [place], [place] [address] Mvmg, Gml Mobile Home Draw 25[address] [facility] [place], [place] [address] 09/08/2024 7:00 AM EDT Laboratory Lab Mobile Phlebotomy [facility] [address] [employer] [place] [address] Mvmg, Gml Mobile Home Draw 2520 [facility] [place] [address] 09/15/2024 7:00 AM EDT Laboratory Lab Mobile Phlebotomy [facility] [address] [facility] [place] [address] Mvmg, Gml Mobile Home Draw 2520 [facility] [place] [address] 09/22/2024 7:00 AM EDT Laboratory Lab Mobile Phlebotomy [facility] [address] [facility] [place] [address] Mvmg, Gml Mobile Home Draw [address]20 [facility] [place] [address] 09/29/2024 7:00 AM EDT Laboratory Lab Mobile Phlebotomy [facility] [address] [facility] [place] [address] Mvmg, Gml Mobile Home Draw [address]20 [facility] [place] [address] 10/06/2024 7:00 AM EST Laboratory Lab Mobile Phlebotomy [facility] [address] [facility] [place] [address] Mvmg, Gml Mobile Home Draw 2520 [facility] [place] [address] 10/12/2024 10:20 AM EST Office Visit Pulmonary Medicine, [facility] 132 [facility] [place] [address] Jordan Stanley MD [address] [place] [address] 10/13/2024 7:00 AM EST Laboratory Lab Mobile Phlebotomy [facility] [address] [facility] [place] [address] Mvmg, Gml Mobile Home Draw 2520 [facility] [place] [address] 10/20/2024 7:00 AM EST Laboratory Lab Mobile Phlebotomy [facility] [address] [facility] [place], [place] [address] Mvmg, Gml Mobile Home Draw 25[address] [facility] [place], [place] [address] 10/27/2024 7:00 AM EST Laboratory Lab Mobile Phlebotomy [facility] [address] [facility] [place] [address] Mvmg, Gml Mobile Home Draw 2520 [facility] [place], [place] [address] 10/30/2024 10:00 AM EST Office Visit Urology Lynnette Fitzpatrick [address] [place] [address] Frank Peraza MD [address] [place] [address] Scheduled Procedures Name Priority Associated Diagnoses Date/Ti [...] Additional history exists CKD PHOS USE SMARTSET 21968 05/08/202506/2024, 04/07/2024, 02/26/2024, Additional history exists CKD HGB USE SMARTSET 95474 05/12/202505/12, 05/11/2024, 05/11/2024, Additional history exists Sigmoidoscopy [...] this encounter Medical Devices Implanted Type Area Maintenance Helper Utility Engineer Device Identifier Shelf Expiration Date Model / Serial / Lot Clareon Iol Aspheric Hydrophobic Acrylic Iol Implanted:Qty: 1 on 04/23/2023 by Cody Gonzalez DO at OR [facility] Lens Left: Eye 11/12/2025 CNA0T0 / [id number] / Viatorr Tips Endoprosthesis 8-10 Mm X 8cm / 2cm Implanted:Qty: 1 on 10/07/2020 by Go Alvarado MD at [facility] Right: Abdomen 03/03/2023 [id number] / / [id number] Description:Viatorr TIPS End oprosthesis 8-10 mm x 8cm / 2cm, Manufactored by [employer] Syr Pf 2ml Embospheres 100-300 - [id number] Implanted:Qty: 1 on 04/18/2021 by Kevin Lim DO at OR [facility] Left: Abdomen [employer] [id number] 11/25/2023 S220GH / / [id number] Lipiodol Injection - [id number] Implanted:Qty: 1 on 03/28/2022 at [facility] [employer] 03/01/2023 02597-10 01-2 / / [id number] Syr Pf 2ml Embospheres 100-300 - [id number] Implanted:Qty: 1 on 03/28/2022 at [facility] [employer] [id number] 08/31/2024 S220GH / / [id number] -[id number] Clareon Iol Aspheric Hydrophobic Acrylic Iol Implanted:Qty: 1 on 04/02/2023 by Cody Gonzalez DO at OR [facility] Right: Eye JAZMIN 11/12/2025 CNA0T0 / [id number] / documented as of this encounter Advance Directives Documents on File Type Date Recorded Patient Pin Game Machine Inspector Expl anation Advance Directives and Living Will 12/11/2022 ADVANCE DIRECTIVE / LIVING WILL LIVING WILL Power of Learning Manager 12/11/2022 POWER OF A TTORNEY * [...] Discussed due to patient's condition Care Teams Flower Stripper Relationship Specialty Start Date End Date Francisco Cisse MD [address] [place] [address] PCP - General Internal Medicine 09/04/21 documented as of this encounter
--- OUTSIDE RECORDS SUMMARY | 2024-05-20 09:10 | External Medical Summary | Summary of Care ---
Author Name Unknown Organization [facility] Address [address] [facility] [address] Phone [phone] Care Team Providers Care Classification Analyst Name Role Phone Francisco Cisse MD Primary Care Provider + Reason for Visit * Reason Onset Date Comments Advice 05/15/2024 Encounter Details Date Type Department Care Team (Late st Contact Info) Description 05/15/2024 Telephone Gastroenterology, [facility] [address] [place] [address] Lamar Tatum CRNP [address] [place] [address] Advice Allergies No known active allergiesdocumented as [...] mRNA, LNP-s, No Pre serve, 2-Dose Series ([employer]) 03/08/2021,02/15/2021 HepA Inact/HepB Recomb>=18yrs old 12/04/2019,04/2019,05/20/2019 11/19/2019 PPD 06/18/2017, 3,01/09/2012,06/2011 Pneumococcal Conjugate Vacc, 13 Valent (Prevnar) 05/01/2017 Pneumococcal Polysaccharide PPV23 (Pneumovax) 08/28/2022,10/25/2015,07/14/2012 Season Influenza, Quad, PF, Adjuvanted, 65+ Yrs, IM (FLUAD) 10/07/2020(Deferred: Patient Refused - pt says he already had his shot last month at [facility] [...] Thomson LPN - 05/15/2024 8:35 AM EDT [facility] Interventional Radiology called and stated that the pt is requesting a paracentesis[the pt hasa standing order]. They stated that the provider that does these is out until 05/23 and they are wondering if the pt can have this done at [facility]. Please Advise. option 1 and then option 3 This is the call back information for Interventional Radiology documented in this encounter Plan of Treatment Upcoming Encounters Date Type Department Care Team (Late st Contact Info) Description 05/18/2024 7:05 AM EDT Laboratory Lab Mobile Phlebotomy [facility] [address] [place] [place] [address] Mvmg, Gml Mobile Home Draw 2520 [facility] [place] [address] 05/19/2024 9:20 AM EDT Office Visit [facility] [address] [address] Kristen Vences DO [address] [address] [address] 2024 2:30 PM EDT Office Visit Urology Lynnette Fitzpatrick [address] [place] [address] Frank Peraza MD [address] [place] [address] 05/26/2024 7:05 AM EDT Laboratory Lab Mobile Phlebotomy [facility] [address] [place] [address] Mvmg, Gml Mobile Home Draw [facility] [place] [address] 06/02/2024 7:00 AM EDT Laboratory Lab Mobile Phlebotomy [facility] [address] [place] [address] [address] Mvmg, Gml Mobile Home Draw [address] [address] 06/09/2024 7:00 AM EDT Laboratory Lab Mobile Phlebotomy [facility] [address] [address] Mvmg, Gml Mobile Home Draw [address] [place] [place] [address] 06/16/2024 7:00 AM EDT Laboratory Lab Mobile Phlebotomy [facility] [address] [place], [place] [address] Mvmg, Gml Mobile Home Draw [address] [place], [place] [address] 06/23/2024 7:00 AM EDT Laboratory Lab Mobile Phlebotomy [facility] [address] [place], [place] [address] Mvmg, Gml Mobile Home Draw [address] [place], [place] [address] 06/23/2024 2:00 PM EDT Office Visit Hematology/Oncology George Blankenship [place] [address] [place], [place] [phone] Ayaka Tatum, JEFF [address] [place], [place] [address]J[place] [address] 06/30/2024 7:00 AM EDT Laboratory Lab Mobile Phlebotomy [facility] [address] [place], [place] [address] Mvmg, Gml Mobile Home Draw [address] [place], [place] [address] 07/07/2024 7:00 AM EDT Laboratory Lab Mobile Phlebotomy [facility] [address] [place], [place] [address] Mvmg, Gml Mobile Home Draw [address] [place], [place] [address] 07/14/2024 7:00 AM EDT Laboratory Lab Mobile Phlebotomy [facility] [address] [place], [place] [address] Mvmg, Gml Mobile Home Draw [address] [place] [address] 07/21/2024 7:00 AM EDT Laboratory Lab Mobile Phlebotomy [facility] [address] [place], [place] [address] Mvmg, Gml Mobile Home Draw [address] [place], [place] [address] 07/28/2024 7:00 AM EDT Laboratory Lab Mobile Phlebotomy [facility] 2520 [facility] [place], [place] [address] Mvmg, Gml Mobile Home Draw 25[address] [facility] [place] [address] 08/04/2024 7:00 AM EDT Laboratory Lab Mobile Phlebotomy [facility] [address] [facility] [place] [address] Mvmg, Gml Mobile Home Draw 25[address] [facility] [place] [address] 08/11/2024 7:00 AM EDT Laboratory Lab Mobile Phlebotomy [facility] [address] [employer] [place], [place] [address] Mvmg, Gml Mobile Home Draw 25[address] [facility] [place] [address] 08/18/2024 7:00 AM EDT Laboratory Lab Mobile Phlebotomy [facility] [address] [place], [place] [address] Mvmg, Gml Mobile Home Draw 2520 [facility] [place] [address] 08/20/2024 10:15 AM EDT Office Visit Ophthalmology, [facility] 132 [facility] [place] [address] Cody Gonzalez, DO 21 [facility] [address] 08/25/2024 7:00 AM EDT Laboratory Lab Mobile Phlebotomy [facility] [address] [employer] [facility] [place], [place] [address] Mvmg, Gml Mobile Home Draw 2520 [facility] [place], [place] [address] 09/01/2024 7:00 AM EDT Laboratory Lab Mobile Phlebotomy [facility] [address] [place], [place] [address] Mvmg, Gml Mobile Home Draw 2520 [facility] [place], [place] [address] 09/08/2024 7:00 AM EDT Laboratory Lab Mobile Phlebotomy [facility] [address] [place] [address] Mvmg, Gml Mobile Home Draw 2520 [place] [address] 09/15/2024 7:00 AM EDT Laboratory Lab Mobile Phlebotomy [facility] [address] [place] [address] Mvmg, Gml Mobile Home Draw 2520 [place] [address] 09/22/2024 7:00 AM EDT Laboratory Lab Mobile Phlebotomy [facility] [address] [place] [address] Mvmg, Gml Mobile Home Draw 25[address] [place] [address] 09/29/2024 7:00 AM EDT Laboratory Lab Mobile Phlebotomy [facility] [address] [place] [address] Mvmg, Gml Mobile Home Draw [address] [place] [address] 10/06/2024 7:00 AM EST Laboratory Lab Mobile Phlebotomy [facility] [address] [place] [address] Mvmg, Gml Mobile Home Draw 25[address] [place] [address] 10/12/2024 10:20 AM EST Office Visit Pulmonary Medicine, [facility] 132 [facility] [place] [address] Jordan Stanley MD [address] [place] [address] 10/13/2024 7:00 AM EST Laboratory Lab Mobile Phlebotomy [facility] [address] [place] [address] Mvmg, Gml Mobile Home Draw 2520 [place] [address] 10/20/2024 7:00 AM EST Laboratory Lab Mobile Phlebotomy [facility] 25[address] [facility] [place], [place] [address] Mvmg, Gml Mobile Home Draw 2520 [facility] [place], [place] [address] 10/27/2024 7:00 AM EST Laboratory Lab Mobile Phlebotomy [facility] [address] [facility] [place] [address] Mvmg, Gml Mobile Home Draw 2520 [facility] [place], [place] [address] 10/30/2024 10:00 AM EST Office Visit Urology Lynnette Fitzpatrick [address] [place] [address] Frank Peraza MD [address] [place] [address] Scheduled Procedures Name Priority Associated Diagnoses Date/Ti [...] Additional history exists CKD PHOS USE SMARTSET 96762 05/08/202506/2024, 04/07/2024, 02/26/2024, Additional history exists CKD HGB USE SMARTSET 46799 05/12/202505/12, 05/11/2024, 05/11/2024, Additional history exists Sigmoidoscopy [...] this encounter Medical Devices Implanted Type Area Nonprofit Director Device Identifier Shelf Expiration Date Model / Serial / Lot Clareon Iol Aspheric Hydrophobic Acrylic Iol Implanted:Qty: 1 on 04/23/2023 by Cody Gonzalez DO at OR [facility] Lens Left: Eye 11/12/2025 CNA0T0 / [id number] / Viatorr Tips Endoprosthesis 8-10 Mm X 8cm / 2cm Implanted:Qty: 1 on 10/07/2020 by Go Alvarado MD at [facility] Right: Abdomen 03/03/2023 [id number] / / [id number] Description:Viatorr TIPS End oprosthesis 8-10 mm x 8cm / 2cm, Manufactored by [employer] Syr Pf 2ml Embospheres 100-300 - [id number] Implanted:Qty: 1 on 04/18/2021 by Kevin Lim DO at OR [facility] Left: Abdomen [employer] [id number] 11/25/2023 S220GH / / [id number] Lipiodol Injection - [id number] Implanted:Qty: 1 on 03/28/2022 at [facility] [employer] 03/01/2023 23347-81 01-2 / / [id number] Syr Pf 2ml Embospheres 100-300 - [id number] Implanted:Qty: 1 on 03/28/2022 at [facility] [employer] [id number] 08/31/2024 S220GH / / [id number] -[id number] Clareon Iol Aspheric Hydrophobic Acrylic Iol Implanted:Qty: 1 on 04/02/2023 by Cody Gonzalez DO at OR [facility] Right: Eye JAZMIN 11/12/2025 CNA0T0 / [id number] / documented as of this encounter Advance Directives Documents on File Type Date Recorded Patient Day Porter Expl anation Advance Directives and Living Will 12/11/2022 ADVANCE DIRECTIVE / LIVING WILL LIVING WILL Power of Monument Setter Helper 12/11/2022 POWER OF A TTORNEY * Full [...] Discussed due to patient's condition Care Teams Classification Analyst Relationship Specialty Start Date End Date Francisco Cisse MD [address] [place] [address] PCP - General Internal Medicine 09/04/21 documented as of this encounter
[2024-05-20] MEDS ORDERED: GLUCOSE 40% GEL 15 GM TUBE PO PRN (10:38)
[2024-05-20] MEDS ORDERED: GLUCAGON FOR INJ 1 MG VIAL SQ PRN (10:38)
[2024-05-20] MEDS ORDERED: GLUCOSE 10 TAB/TUBE PO PRN (10:38)
[2024-05-20] MEDS ORDERED: CARBOHYDRATES FOR HYPOGLYCEMIA PO PRN (10:38)
[2024-05-20] MEDS ORDERED: DEXTROSE 50% 50 ML SYRINGE IV PRN (10:38)
--- NOTE | 2024-05-20 10:57 | Gastrointestinal Consultation ---
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, prostate ca, CKD, DM II admitted with volume overload - Ascites - Please arrange a Hepatic duplex to rule out PVT - Agree with diagnostic and therapeutic paracentesis - Please send cell count, culture, cytology - Hold on empiric ABX unless urgently indicated until paracentesis is completed - Trend SECOND HELPER - Last OP nephrology note in 2021 notes baseline SECOND HELPER 1.3-1.4 - Agree w/ albumin - Resume Lasix when able - He has not been on Aldactone but unclear why, 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 Please call with any acute changes, questions or concerns. Please see addendum below with additional recommendation from my supervising physician. I spent a total of 80 minutes on the date of service in review of patient's record, and previously obtained information in person and appropriate medical visit, discussion and education of plan, with patient and/or caregiver, placing orders for tests/referral/procedures as medically necessary and documentation of pertinent clinical information in patient's medical records for their visit today. Supervising Physician Co-Signing Physician Notes I examined the patient and reviewed patient's chart , laboratory data and imaging studies. I agree with with assessment and plan of care as suggested by advanced practice provider. Review of his MRI and CAT scan records from [facility] indicate that the patient is having enlarging 4 cm tumor in the segment 2 and a smaller 2 cm tumor in segment 4. The most recent CT scan was done on April 15. The patient is having very poor performance status. Evaluation and possible various treatment options for recurrent HCC could be considered when he becomes more stable. Otherwise the patient could benefit from supportive and palliative measures. 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 Following with [facility], JEFF Archibald. He was previously listed but removed by [facility] due to frailty. Notes that he has had numerous admissions, issues with volume status, diuretics held related to CKD. Suggests large ascites requiring para through the ED last week. Noted over the past few days, fluid reaccumulated. Pain is generalized. Explained as pressure/fullness. Had emesis x 1 in the ED. This was contents of his last meal. Denies any further emesis. No black or bloody emesis. No black or bloody stools. Decompensations: Varices:iradicated.Most recent EGD08/09/23:portal hypertensive gastropathy, no varices Radiation Proctitis: Flex sig 02/01/22 and 04/12/22: APC'ed Hepatic Encephalopathy: Lactulose 15ml BID and Rifaximin. Ascites: Post TIPs and revision. Lasix 40mg daily held, paracentesis about every 2-3 week Anemia: Managed by Dr. Ramires HCC: s/p TACE s/p bland embolization, MRI liver with [id number]. Screenings: Colonoscopy08/09/23- Preparation of the colon was fair.Two 5mm transverse colon polyps removed, moderatesigmoid/descending colondiverticulosis, internal hemorrhoids. Allergies Allergy/AdvReac Type Severity Reaction Status Date / Time No Known Allergies Allergy Mild Verified 05/15/24 14:57 Home Medications Medication Instructions Recorded Confirmed Type allopurinol 100 mg tablet 200 mg PO QAM 05/16/20 05/20/24 History Lactobacil.acidophilus-Bifido.animalis 1 cap PO QAM 05/17/23 05/20/24 History 5 billion cell sprinkle capsule (Probiotic) ferrous sulfate 325 mg (65 mg 650 mg PO QAM 05/17/23 05/20/24 History iron) tablet (iron) ggzxpbcanqmn-fyn-odesk acid-vit 1 tab PO DAILY 05/17/23 05/20/24 History K-lycop 400 mcg-20 mcg-370 mcg tablet (Men's 50 Plus Multivitamin) duloxetine 30 mg capsule,delayed 30 mg PO QAM 02/02/24 05/20/24 History release pantoprazole 40 mg tablet,delayed 40 mg PO AMPM 02/02/24 05/20/24 History release rifaximin 550 mg tablet (Xifaxan) 550 mg PO AMHS 02/02/24 05/15/24 History metoclopramide HCl 5 mg tablet 5 mg PO TID PRN Nausea And Vomiting 02/20/24 05/20/24 History acetaminophen 500 mg tablet 1,000 mg PO BID PRN Pain 03/19/24 05/20/24 History finasteride 5 mg tablet 5 mg PO QAM 03/20/24 05/20/24 History lactulose 10 gram oral packet 10 g PO BID PRN . 03/20/24 05/20/24 History (Kristalose) mirtazapine 30 mg tablet 30 mg PO HS 03/20/24 05/20/24 History potassium chloride 20 mEq 20 meq PO DAILY 03/20/24 05/20/24 History tablet,extended release(part/cryst) acetylcysteine 600 mg capsule 600 mg PO DAILY 05/03/24 05/20/24 History albumin, human 25 % See Rx Instructions .Route .COMPLEX 05/20/24 05/20/24 History cholestyramine (with sugar) 4 gram 1 ea PO BID 05/20/24 05/20/24 History powder for susp in a packet insulin glargine 100 unit/mL (3 unit subcut 05/20/24 History mL) subcutaneous pen (Lantus Solostar U-100 Insulin) magnesium chloride 64 mg 64 mg PO DAILY 05/20/24 05/20/24 History (magnesium chloride) tablet,delayed release (Mag 64) oxybutynin chloride 5 mg tablet 5 mg TID PRN Bladder Spasms 05/20/24 05/20/24 History solifenacin 5 mg tablet 5 mg PO DAILY 05/20/24 05/20/24 History triamcinolone acetonide 0.1 % applic topical 05/20/24 History topical cream zinc 50 mg PO DAILY 05/20/24 05/20/24 History Patient History Medical History Thrombocytopenia DM type 2 (diabetes mellitus, type 2) Hx of malignant neoplasm of prostate History of blood transfusion 11/2022 Hepatocellular carcinoma Spinal fracture of T12 vertebra History of recent hospitalization 06/2023 [facility] hepatic encephalopathy Liver spots Under surveillance, stable per patient Anxiety and depression 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 Anemia of chronic disease under surveillance History of panic attacks Gout No current issues GERD (gastroesophageal reflux disease) GAVE (gastric antral vascular ectasia) Hypertension Hx Esophageal varices EGD 05/22/23 ([facility]): Grade 1 varices in distal esophagus without high risk stigmata Upper GI bleed Hx Psoriasis Surgical History History of left cataract surgery History of right cataract surgery History of prostate biopsy malignant S/P TIPS (transjugular intrahepatic portosystemic shunt) History of esophagogastroduodenoscopy (EGD) Most recent 05/2023 [facility] History of colonoscopy with polypectomy History of tonsillectomy and adenoidectomy History of abdominal paracentesis Multiple, most recent 01/2023 Family History Father , "3/4 liver gone due to drinking" Colorectal cancer, Onset Age: 63 Mother Lung cancer Daughter Cancer cervical and thyroid cancers Ovarian cancer Other No family history of adverse response to anesthesia 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 Smoking Status: Former smoker Second Hand Exposure: No; Do You Dip or Chew Tobacco: No; Hx Alcohol Use: No Hx Substance Use: No Preferred Language: Kiswahili Communication Ability: Effective Visual Impairment: No Limitations Hearing Ability: Normal Circuit Court Clerk Required: No Beliefs That Will Affect Care: None marital status: Current Living Situation: Spouse Current Living Situation Comment: 1 level single family home 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 How many Children do You have: 6 How many Children do You have Comment: one , eldest daughter in her sleep from seizure disorder Other Information That Helps Us Care for You: No Feels Safe at Home: Yes Safety Concerns: Feels Safe At This Time Childhood Exposure to Second-Hand Smoke: Yes Diet Comment: "I watch my sugar, average fasting is 140 mg/dl" caffeine: Yes (cola, sugar free, decaf) during the past year weight has: remained stable Dental Care, Regularly: No Physical Activity Frequency: Does not Exercise Seatbelt Use: always Sunscreen Use: Yes Assistive Devices: Glasses and Oxygen - at Night Review of Systems Review of Systems: All other findings negative except as noted in HPI. Physical Exam Constitutional: WD/WN, vitals as above chronically ill appearing but in no acute distress Respiratory: normal respiratory effort, lungs clear to auscultation Cardiovascular: Rate/Rhythm: regular rate and regular rhythm Gastrointestinal (Abdomen): Inspection/Auscultation: + abdomen distended and normal bowel sounds Percussion/Palpation: + abdomen tender and + ascites; no guarding and abdomen not rigid Skin: scattered psoriasis, chronic, unchanged per patient Genitourinary: He is passing yannick hematuria in a urinal Results & Data Vital Signs (Past 12 Hours) Vital Signs Temp Pulse Resp BP Pulse Ox O2 Del Method 05/20/24 10:38 Room Air 05/20/24 09:51 54 L 12 154/72 H 97 Room Air 05/20/24 07:27 60 26 H 100 05/20/24 07:15 61 14 98 05/20/24 07:09 139/71 05/20/24 05:00 58 L 16 94 05/20/24 05:00 141/64 H 05/20/24 04:30 154/68 H 05/20/24 04:30 57 L 22 05/20/24 04:27 55 L 24 05/20/24 04:21 151/63 H 05/20/24 04:18 53 L 26 H 05/20/24 04:15 55 L 27 H 05/20/24 04:00 58 L 26 H 97 05/20/24 03:56 59 L 05/20/24 03:50 100 Room Air 05/20/24 03:50 36.7 C 60 25 H 141/69 H 100 Room Air PG Care Time/CCT Total # of Minutes Spent Total Time Spent with Patient: Total time spent is greater than 50% in coordination of care (as documented) at patient's floor/unit and/or counseling patient: Coding Level of Care Code 54560 INT INP/OBS CARE 3/75MIN Diagnoses Abdominal ascites R18.8
[2024-05-20] MEDS: ADVANCED PROBIOTIC 625 MG CAPSULE PO SCH (12:23)
[2024-05-20] MEDS: rifAXIMin 550 MG TABLET PO SCH (12:24)
[2024-05-20] MEDS: LANTUS PER UNIT CHARGE SQ SCH (12:25)
[2024-05-20] MEDS: allopurinoL 100 MG TAB PO SCH (12:25)
[2024-05-20] MEDS: OXYBUTYNIN CHLORIDE XL 5 MG TABCR PO SCH (12:25)
[2024-05-20] MEDS: MAGNESIUM SULFATE / D5W 1 GM/100 ML BAG IV SCH (12:49)
[2024-05-20] MEDS: PIPERACILLIN/TAZOBACTAM 4.5 GM in DEXTROSE 5% MINI-B 100 ML IV ONE (12:50)
[2024-05-20] MEDS: PANTOprazole 40 MG TAB PO SCH (13:11)
[2024-05-20] MEDS: FERROUS SULFATE 325 MG TAB PO SCH (13:11)
[2024-05-20] MEDS: DULoxetine HCL 30 MG CAP PO SCH (13:11)
[2024-05-20] MEDS: MULTIVITAMIN TAB PO SCH (13:11)
[2024-05-20] MEDS: CHOLESTYRAMINE LIGHT 4 GM PKT PO SCH (13:11)
[2024-05-20] MEDS: FINASTERIDE 5 MG TAB PO SCH (13:11)
[2024-05-20] MEDS: ACETYLCYSTEINE 600 MG CAP PO SCH (13:11)
[2024-05-20] MEDS ORDERED: ALBUMIN 25% 25 GM/100 ML VIAL IV SCH (14:00)
[2024-05-20] MEDS ORDERED: LACTULOSE 10 GM PO PRN (15:14)
[2024-05-20] MEDS: ALBUMIN 25% 25 GM/100 ML VIAL IV SCH (15:24)
[2024-05-20] MEDS: INSULIN ASPART PER UNIT CHARGE SC SCH (15:27)
--- NOTE | 2024-05-20 15:31 | Ultrasound Report ---
RENAL ULTRASOUND HISTORY: Acute hematuria hematuria, rule out obstruction COMPARISON: CT of same day FINDINGS: Right kidney: 11.7 cm. No hydronephrosis. Normal corticomedullary differentiation and cortical thickn ess. Left kidney: 12.1 cm. There is a 7 mm hypoechoic focus suggestive of a cyst noted within the interpol ar distribution. No hydronephrosis. Normal corticomedullary differentiation and cortical thickness. Bladder: Partial distention with wall thickening and trabeculation. No definite Kan catheter identi fied within the bladder lumen. Layering intraluminal debris. Right ureteral jet not identified. Prostatomegaly. Cirrhosis with ascites. IMPRESSION: 1. No renal calculi or hydronephrosis. 2. Prostamegaly with evidence of chronic outlet obstruction. 3. Suggestion of layering hemorrhage within the urinary bladder lumen. A Kan balloon catheter is no t visualized. ACT 112: Negative or not required by law. Electronically signed by: Yovany Gonzalez M.D. 05/20/2024 3:30 PM
--- NOTE | 2024-05-20 16:16 | Communication Note ---
Date of Service: May 20, 2024 Patient presented with abdominal pain, nausea and vomiting. Recent paracentesis on 05/15/2024 with 5 L of acetic fluid tapping Patient had some episode of vomiting containing food particles in the morning. He underwent paracentesis with removal of about 3 L of fluid. Diagnostic studies are pending. Patient was seen by GI. Appreciate recommendation. On physical exam; Constitutional: Alert oriented x 3; in mild distress due to abdominal discomfort. Respiratory: Bilateral vesicular breath sound Cardiovascular: RRR, no murmur, no edema Vessels: no JVD or carotid bruit Abdomen: Distended, generalized tenderness. Musculoskeletal: no cyanosis or clubbing, extremities motor strength 5/5 Skin: no rashes, warm and dry normal turgor Neurologic: PERRL, EOMI, accommodation nl, no face palsy, no dysarthria CN's II- XI intact bilaterally and moves all extremities Psychiatric: A+Ox3, euthymic affect Assessment/plan Abdominal pain, rule out spontaneous bacterial peritonitis Acute UTI History of decompensated liver cirrhosis with ascites; presents with abdominal pain Status post paracentesis. Await cell count with differential, culture Obtain blood culture; follow-up on urine culture Continue on Zosyn Full progress note to follow tomorrow
--- NOTE | 2024-05-20 16:29 | Ultrasound Report ---
PROCEDURE: Ultrasound-Guided Diagnostic/Therapeutic Paracentesis CLINICAL HISTORY: ascites MEDICATIONS: Subcutaneous Lidocaine 2%. PROCEDURE: The procedure itself was explained to the patient carefully. The patient was brought into the IR suite and a time-out was performed. The patient was positioned supine on the table. Preliminar y ultrasound of the abdomen was performed to determine a safe needle entry site. The most appropriat e approach for safe needle entry site was planned and the site for puncture was marked. The right low er quadrant was prepped and draped in the usual sterile fashion. Subcutaneous 2% lidocaine was used f or local anesthesia along the expected needle tract. Under ultrasound-guidance, an 5 [place] Yueh needle-sheath was inserted carefully into the peritoneal space towards the abdominal ascites fluid collection. The needle was removed and the sheath was conn ected to tubing and a vacuum suction device. A total of 3200 cc of serous ascites was aspirated. The sheath was removed and a sterile dressing applied. The patient tolerated the procedure well without i mmediate complications. Sample of ascites was sent for analysis. IMPRESSION: Ultrasound-guided diagnostic/therapeutic paracentesis. Electronically signed by: Arik Flowers M.D. 05/20/2024 4:28 PM
--- NOTE | 2024-05-20 16:31 | Electrocardiogram Report ---
Test Reason : Blood Pressure : / mmHG Vent. Rate : 058 BPM Atrial Rate : 000 BPM P-R Int : 000 ms QRS Dur : 086 ms QT Int : 488 ms P-R-T Axes : 000 -05 059 degrees QTc Int : 479 ms Sinus bradycardia Possible Anterior infarct , age undetermined Abnormal ECG When compared with ECG of 03-MAY-2024 02:30, Nonspecific T wave abnormality, improved in Lateral leads Confirmed by Salvador Scanlon ([id number]) on 05/20/2024 4:31:13 PM Referred By: REFERRED SELF Confirmed By:Salvador Scanlon
[2024-05-20 16:53] LABS: Appearance Peritoneal Fluid Cloudy; Basophils, Fluid 1 %; Color Peritoneal Fluid Pale Yellow; Lymphocytes, Fluid 72 %; Mono,Macrophage,Mesothelial 22 %; Neutrophils, Fluid 5 %; RBC Peritoneal Fluid Auto < 2000 /uL; WBC Peritoneal Fluid Auto 95 /ul (0-300)
[2024-05-20] MEDS ORDERED: LACTULOSE SYRUP 10 GM/15 ML BTL 960 ML PO PRN (17:58)
[2024-05-20] MEDS: PIPERACILLIN/TAZOBACTAM 4.5 GM in DEXTROSE 5% MINI-B 100 ML IV SCH (18:10)
--- NOTE | 2024-05-20 19:59 | Ultrasound Report ---
US duplex portal hepatic veins CLINICAL HISTORY: rule out Portal vein thromobosis TECHNIQUE: Grayscale, color and spectral waveform Doppler examination of the abdomen was performed. Comparison: None available at the time of this dictation. FINDINGS: The hepatic veins, portal veins, and IVC are patent with no thrombus identified. Flow is in the corre ct direction. No ascites is seen. The splenic vein is obscured by bowel. IMPRESSION: No portal vein thrombosis. ACT 112: Negative or not required by law. Electronically signed by: Arik Flowers M.D. 05/20/2024 7:58 PM
[2024-05-20] MEDS: MIRTAZAPINE TAB 15 MG TAB PO SCH (21:40)
[2024-05-20] MEDS: oxyCODONE HCL IR 5 MG TAB (IMMEDIATE RELEASE) PO PRN (21:50)
[2024-05-21] MEDS ORDERED: cefTRIAXone SODIUM 2,000 MG/50 ML BAG IV SCH (06:00)
--- NOTE | 2024-05-21 08:56 | Gastroenterology Progress Note ---
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 REVENUE COORDINATOR has now returned, 2.37. 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 Please call with any acute changes, questions or concerns. Please see addendum below with additional recommendation from my supervising physician. I spent a total of 55 minutes on the date of service in review of patient's record, and previously obtained information in person and appropriate medical visit, discussion and education of plan, with patient and/or caregiver, placing orders for tests/referral/procedures as medically necessary and documentation of pertinent clinical information in patient's medical records for their visit today. Admission and Anticipated Discharge Date Admission Date: May 20, 2024 Supervising Physician Co-Signing Physician Notes I examined the patient and reviewed patient's chart , laboratory data and imaging studies. I agree with with assessment and plan of care as suggested by advanced practice provider. The patient is feeling better with less abdominal pain. Worsening of acute renal failure, creatinine 2.4. Rule out hepatorenal syndrome. Worsening anemia, hemoglobin 7.5 today. Off diuretics. Received 4 doses of albumin. Renal service is following. Continue rifaximin and lactulose. Regarding recurrent hepatocellular carcinoma the patient stated that he has an appointment with his electronic components assembler at [facility]. Subjective Pt was seen and evaluated, chart reviewed. Upon entering room, pt was tearful, crying. Stating he is having sciatica pain. He notes his abd pain is improved s/p paracentesis. Tolerating oral intake. No nausea, vomiting. No black or bloody stools. No fever, chills, CP, SOB. AM labs yet to be obtained Fluid studies without evidence of SBP. Cytology is pending. Review of Systems Review of Systems: All other findings negative except as noted in HPI. Physical Exam Constitutional: WD/WN, vitals as above Respiratory: normal respiratory effort, lungs clear to auscultation Cardiovascular: Rate/Rhythm: regular rate and regular rhythm Gastrointestinal (Abdomen): Inspection/Auscultation: normal bowel sounds Percussion/Palpation: + abdomen tender; no guarding and abdomen not rigid Results & Data Results & Data Vital Signs (Past 12 Hours) Vital Signs Temp Pulse Pulse Resp BP BP Pulse Ox 05/21/24 07:37 57 L 05/21/24 02:59 36.5 C 58 L 18 134/63 96 05/20/24 23:02 36.6 C 59 L 16 120/63 98 05/20/24 22:01 68 O2 Del Method 05/21/24 07:37 05/21/24 02:59 Room Air 05/20/24 23:02 Room Air 05/20/24 22:01 Laboratory Results 05/21/24 05/20/24 05/20/24 Range/Units 07:57 Unknown 20:15 POC Glucose 113 H 133 H (70-99) mg/dl Fluid Neutrophils % 5 % Fluid Lymphocytes % 72 % Fluid Basophils % 1 % Fluid Meso/Macro/Dukes % 22 % Fluid Comment Peritoneal Color Pale Yellow Peritoneal Appearance Cloudy Peritoneal WBC (Auto) 95 (0-300) /ul Peritoneal RBC (Auto) < 2000 /uL Peritoneal Albumin < 1.5 gm/dl 05/20/24 05/20/24 05/20/24 Range/Units 17:11 15:37 12:15 POC Glucose 171 H 179 H 173 H (70-99) mg/dl Fluid Neutrophils % % Fluid Lymphocytes % % Fluid Basophils % % Fluid Meso/Macro/Dukes % % Fluid Comment Peritoneal Color Peritoneal Appearance Peritoneal WBC (Auto) (0-300) /ul Peritoneal RBC (Auto) /uL Peritoneal Albumin gm/dl PG Care Time/CCT Total # of Minutes Spent Total Time Spent with Patient: Total time spent is greater than 50% in coordination of care (as documented) at patient's floor/unit and/or counseling patient: Coding Level of Care Code 41682 SUB INP/OBS CARE 3/50MIN Diagnoses Other ascites R18.8 Ascites type: other type (1) Abdominal ascites Ascites type: other type Qualified Code(s): R18.8 - Other ascites
[2024-05-21 10:17] LABS: Basophils # (auto) 0.01 K/uL (0.00-0.20); Basophils % (auto) 0.3 %; Eosinophils # (auto) 0.29 K/uL (0.00-0.50); Eosinophils % (auto) 8.1 %; Hematocrit (blood only) 23.6 % (42.0-52.0); Hemoglobin 7.5 g/dl (14.0-18.0); Immature Granulocytes # (auto) 0.01 K/uL (0.01-0.20); Immature Granulocytes % (auto) 0.3 %; Lymphocytes # (auto) 0.53 K/uL (1.20-3.40); Lymphocytes % (auto) 14.8 %; Mean Corpuscular Hemoglobin 32.1 pg (25.0-34.0); Mean Corpuscular Hgb Conc 31.8 g/dL (32.0-36.0); Mean Corpuscular Volume 100.9 fL (80.0-100.0); Mean Platelet Volume 12.5 fL (9.4-12.4); Monocytes # (auto) 0.23 K/uL (0.11-0.59); Monocytes % (auto) 6.4 %; Neutrophils % (auto) 70.1 %; Platelet Count 75 K/uL (130-400); RDW Coefficient of Variation 19.5 % (11.5-14.5); RDW Standard Deviation 71.2 fL (36.4-46.3); Red Blood Count 2.34 M/uL (4.70-6.10); White Blood Count 3.57 K/ul (4.8-10.8)
[2024-05-21 10:31] LABS: Albumin Globulin Ratio 1.3 (0.9-2); Albumin Level 2.9 gm/dl (3.4-5.0); BUN Creatinine Ratio 15.2 (10-20); Bilirubin,Total 3.4 mg/dl (0.2-1.0); Calcium 7.6 mg/dl (8.6-10.3); Creatinine Clr Calc Pharmacy 28.2 ml/min; Est GFR (African American) 30.1 ml/min; Globulin 2.3 gm/dl (2.5-4.0); Magnesium 2.5 mg/dl (1.7-2.4); Potassium 3.9 mmol/L (3.5-5.1); Total Protein 5.2 gm/dl (6.0-8.3)
[2024-05-21 10:35] LABS: Anisocytosis Present; Ovalocytes 1+; Polychromasia 1+; Tear Drop Cells 1+
[2024-05-21] MEDS: FUROSEMIDE 40 MG TAB PO SCH (12:00)
--- NOTE | 2024-05-21 13:03 | Nephrology Consultation ---
Date of Consultation May 21, 2024 Assessment & Plan (1) LUCRETIA (acute kidney injury): Stage 2 nonoliguric acute kidney injury in the setting of worsening volume overload from liver disease and requiring more frequent paracenteses recently after his diuretics were held. Ischemic ATN is likeliest dx versus prerenal but many are possible; cannot R/O HRS. No indication for dialysis --still volume overloaded but chemistries acceptable Agree with holding diuretics for now Continue conservative management by avoiding NSAIDs and IV contrast unless life or limb saving Daily basic metabolic panel Daily standing weight: Standing weights only ordered - will limit fluids to 1.5 L and ordered low na diet Agree with albumin, though may technically need 48 hours worth and would consider making dosing less frequent then every 2 hours and more like every 6 to 8 hours if reasonable and GI agrees Urinalysis and microscopy ordered History of Present Illness Reason for Consultation: Acute kidney injury Requesting Physician: Dr. Sheppard Attending Physician: Marcus Sheppard MD History of Present Illness 74-year-old male whom I am asked to evaluate for acute kidney injury was admitted yesterday for management of painful ascites with concern for SBP. 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 He is not a liver transplant candidate. Admitted here recently for gross hematuria from radiation cystitis with transfer to [place] where he stayed from May 08 to and underwent cystourethroscopy with clot evacuation and fulguration. The patient tells me he received 9 units of packed red cells and had 2 IV iron infusions during this time. Lasix was held at discharge due to renal function. He did present back for evaluation in the ER because of worsening volume overload and underwent paracentesis with 5 L fluid removal on May 15 with creatinine 1.5. Abdominal distention began to recur approximately 48 hours prior to presentation and the patient came back to the ER. Serum creatinine was 1.7 on May 08 transfer to [place]. His creatinine on presentation yesterday was 1.5, up to 2.4 today. He did undergo a 3.2 L paracentesis yesterday with albumin x 2 doses. Preliminary fluid studies negative for SBP or other process. Currently getting Zosyn, albumin 25 g every 2 hours for 4 doses. Allergies Allergy/AdvReac Type Severity Reaction Status Date / Time No Known Allergies Allergy Mild Verified 05/15/24 14:57 Home Medications Medication Instructions Recorded Confirmed Type allopurinol 100 mg tablet 200 mg PO QAM 05/16/20 05/20/24 History Lactobacil.acidophilus-Bifido.animalis 1 cap PO QAM 05/17/23 05/20/24 History 5 billion cell sprinkle capsule (Probiotic) ferrous sulfate 325 mg (65 mg 650 mg PO QAM 05/17/23 05/20/24 History iron) tablet (iron) vecitgylcbjf-hcs-wmqig acid-vit 1 tab PO DAILY 05/17/23 05/20/24 History K-lycop 400 mcg-20 mcg-370 mcg tablet (Men's 50 Plus Multivitamin) duloxetine 30 mg capsule,delayed 30 mg PO QAM 02/02/24 05/20/24 History release pantoprazole 40 mg tablet,delayed 40 mg PO AMPM 02/02/24 05/20/24 History release rifaximin 550 mg tablet (Xifaxan) 550 mg PO AMHS 02/02/24 05/15/24 History metoclopramide HCl 5 mg tablet 5 mg PO TID PRN Nausea And Vomiting 02/20/24 05/20/24 History acetaminophen 500 mg tablet 1,000 mg PO BID PRN Pain 03/19/24 05/20/24 History finasteride 5 mg tablet 5 mg PO QAM 03/20/24 05/20/24 History lactulose 10 gram oral packet 10 g PO BID PRN . 03/20/24 05/20/24 History (Kristalose) mirtazapine 30 mg tablet 30 mg PO HS 03/20/24 05/20/24 History potassium chloride 20 mEq 20 meq PO DAILY 03/20/24 05/20/24 History tablet,extended release(part/cryst) acetylcysteine 600 mg capsule 600 mg PO DAILY 05/03/24 05/20/24 History albumin, human 25 % See Rx Instructions .Route .COMPLEX 05/20/24 05/20/24 History cholestyramine (with sugar) 4 gram 1 ea PO BID 05/20/24 05/20/24 History powder for susp in a packet insulin glargine 100 unit/mL (3 unit subcut 05/20/24 History mL) subcutaneous pen (Lantus Solostar U-100 Insulin) magnesium chloride 64 mg 64 mg PO DAILY 05/20/24 05/20/24 History (magnesium chloride) tablet,delayed release (Mag 64) oxybutynin chloride 5 mg tablet 5 mg TID PRN Bladder Spasms 05/20/24 05/20/24 History solifenacin 5 mg tablet 5 mg PO DAILY 05/20/24 05/20/24 History triamcinolone acetonide 0.1 % applic topical 05/20/24 History topical cream zinc 50 mg PO DAILY 05/20/24 05/20/24 History Patient History Medical History CKD (chronic kidney disease) stage 3, GFR 30-59 ml/min Thrombocytopenia DM type 2 (diabetes mellitus, type 2) Hx of malignant neoplasm of prostate History of blood transfusion 11/2022 Hepatocellular carcinoma Spinal fracture of T12 vertebra History of recent hospitalization 06/2023 [facility] hepatic encephalopathy Liver spots Under surveillance, stable per patient Anxiety and depression 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 Anemia of chronic disease under surveillance History of panic attacks Gout No current issues GERD (gastroesophageal reflux disease) GAVE (gastric antral vascular ectasia) Hypertension Hx Esophageal varices EGD 05/22/23 ([facility]): Grade 1 varices in distal esophagus without high risk stigmata Upper GI bleed Hx Psoriasis Surgical History History of left cataract surgery History of right cataract surgery History of prostate biopsy malignant S/P TIPS (transjugular intrahepatic portosystemic shunt) History of esophagogastroduodenoscopy (EGD) Most recent 05/2023 [facility] History of colonoscopy with polypectomy History of tonsillectomy and adenoidectomy History of abdominal paracentesis Multiple, most recent 01/2023 Family History Father , "3/4 liver gone due to drinking" Colorectal cancer, Onset Age: 63 Mother Lung cancer Daughter Cancer cervical and thyroid cancers Ovarian cancer Other No family history of adverse response to anesthesia 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 Smoking Status: Former smoker Second Hand Exposure: No; Do You Dip or Chew Tobacco: No; Hx Alcohol Use: No Hx Substance Use: No Preferred Language: Sammarinese Communication Ability: Effective Visual Impairment: No Limitations Hearing Ability: Normal Electrician Apprentice Required: No Beliefs That Will Affect Care: None marital status: Current Living Situation: Spouse Current Living Situation Comment: 1 level single family home 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 How many Children do You have: 6 How many Children do You have Comment: one , eldest daughter in her sleep from seizure disorder Feels Safe at Home: Yes Childhood Exposure to Second-Hand Smoke: Yes Diet Comment: "I watch my sugar, average fasting is 140 mg/dl" caffeine: Yes (cola, sugar free, decaf) during the past year weight has: remained stable Dental Care, Regularly: No Physical Activity Frequency: Does not Exercise Seatbelt Use: always Sunscreen Use: Yes Assistive Devices: Oxygen - at Night, Stair Lift and Walker Review of Systems 2 Review of Systems: All systems reviewed & are unremarkable except as noted in HPI & below Physical Exam 2 Constitutional: well developed, + frail appearing and cooperative; no acute distress Eyes: EOM intact bilaterally ENMT: Ears: no external ear abnormality Nose: no external nose abnormality Mouth: + dry oral mucous membranes Neck: no nuchal rigidity Respiratory: normal respiratory effort Auscultation: + diminished lung sounds Cardiovascular: Rate/Rhythm: regular rate and regular rhythm Extremities: + edema (2+ bilateral lower extremities to the knees) Gastrointestinal (Abdomen): Inspection/Auscultation: normal bowel sounds P ercussion/Palpation: + abdomen tender (Nontender except focally left lower quadrant without guarding or rebound), abdomen soft and + ascites Musculoskeletal: Extremities: strength 5/5 throughout Skin: no rashes, warm and dry + jaundice (Slight) Neurologic: ramirez, fluent speech, no tremor Psychiatric: Orientation: alert and oriented x 3 Results & Data Vital Signs (Past 12 Hours) Vital Signs Temp Pulse Pulse Resp BP BP Pulse Ox 05/21/24 12:08 37.0 C 62 18 149/64 H 98 05/21/24 07:37 57 L 05/21/24 02:59 36.5 C 58 L 18 134/63 96 O2 Del Method 05/21/24 12:08 Room Air 05/21/24 07:37 05/21/24 02:59 Room Air Laboratory Results 05/21/24 09:21 05/21/24 09:[address] abdomen pelvis Noncon 1. Cirrhotic liver with splenomegaly and large ascites 2. Focal hypodense lesion in the pancreatic head which can be further assessed on MRI study (Kidneys and ureters and adrenals unremarkable)
[2024-05-21] MEDS: ALBUMIN 25% 25 GM/100 ML VIAL IV SCH (14:07)
--- NOTE | 2024-05-21 15:20 | Hospitalist Progress Note ---
Date of Service May 21, 2024 Assessment & Plan (1) Abdominal ascites: Plan: (2) LUCRETIA (acute kidney injury): Plan Patient presented with abdominal pain and distention. History of decompensated liver cirrhosis; currently on paracentesis every 2 weeks. History of cirrhosis status post TIPS. CT abdomen pelvis showed cirrhotic liver with splenomegaly and large ascites. Focal hypodense lesion in pancreatic head. Chest x-ray on admission; no acute finding Renal ultrasound showed prostatomegaly with evidence of chronic outlet obstruction. Layering hemorrhage within urinary bladder lumen Portal vein ultrasound did not show any thrombosis. Status post therapeutic paracentesis with removal of 3200 cc of fluids Studies do not suggest spontaneous bacterial peritonitis Urine culturenegative Blood culture pending Creatinine up trended 2.37; baseline of 1.5. Continue on empiric antibiotics. Follow-up on blood culture Will give 100 g of 25% albumin for possible hepatorenal syndrome Continue to monitor for hematuria. History of radiation cystitis status post cystourethroscopy with clot evacuation and fulguration. Will continue to hold Lasix; will likely need Lasix to be restarted as o utpatient. GI consulted given CT abdomen/pelvis findings; they recommend outpatient EUS for evaluation of possible pancreatic head mass. Continue on lactulose; titrate to 3 bowel movement per day Chronic conditions Recurrent hepatocellular carcinoma status post IR embolization DM2 insulin requiring, well-controlled as of recent hemoglobin A1c of 5.6, January 2024 history GAVE/esophageal varices/portal hypertensive gastropathy/radiation proctitis/diverticulosis restrictive lung disease as per records/pulmonary hypertension, baseline lung status. BPH/prostate cancer status post radiation Full code DVT prophylaxis SCDs Time spent evaluating patient, direct bedside care, chart review, placing orders, interpretation of diagnostic studies, discussion with consultants, patient, and family members, as well as other required patient management activities is 50 minutes Please note the above document was generated using voice recognition software. It may contain grammatical, syntax or spelling errors. Any formal questions or concerns about the content, text or information contained within the body of this dictation should be directly addressed to the provider for clarification Admission and Anticipated Discharge Date Admission Date: May 20, 2024 Subjective Patient seen and examined at bedside. He is sitting up on the side of the chair; not in distress. Condom catheter in place draining red urine. Review of Systems Review of Systems: All systems reviewed & are unremarkable except as noted in Subjective Physical Exam Physical Exam: Constitutional: WD/WN, vitals as above, NAD, sitting up in bed, pleasant, conversing easily Respiratory: normal respiratory effort, lungs clear to auscultation, no wheeze, rales, rhonchi. Normal insp/exp effort, no accessory muscle use Cardiovascular: RRR, no murmur, no edema Vessels: no JVD or carotid bruit Chest: normal inspection of chest Abdomen: Slightly distended; nontender. Bowel sound present Musculoskeletal: no cyanosis or clubbing, extremities motor strength 5/5 Skin: no rashes, warm and dry normal turgor Neurologic: PERRL, EOMI, accommodation nl, no face palsy, no dysarthria CN's II- XI intact bilaterally and moves all extremities Psychiatric: A+Ox3, euthymic affect Results & Data Results & Data Vital Signs (Past 12 Hours) Vital Signs Temp Pulse Pulse Resp BP Pulse Ox O2 Del Method 05/21/24 15:15 36.7 C 63 20 113/53 L 98 Room Air 05/21/24 12:08 37.0 C 62 18 149/64 H 98 Room Air 05/21/24 07:37 57 L
[2024-05-22 00:06] LABS: Appearance Urine Turbid (Clear); Bacteria Urine Automated None Seen (None Seen); Bilirubin Urine Negative (Negative); Blood Urine 3+ (Negative); Cast Urine Automated 0-2 /lpf (0-2); Color Urine Orange; Epithelial Cell Urine Auto 0-2 /hpf (0-2); Glucose Urine UA Negative (Negative); Ketones Urine Trace (Negative); Leukocyte Esterase Urine 1+ (Negative); Nitrite Urine Negative (Negative); Protein Urine 3+ (Negative); RBC Urine Automated >20 /hpf (0-2); Specific Gravity Urine 1.026 (1.000-1.030); Urobilinogen Urine Negative (Negative)
[2024-05-22 00:26] LABS: Amorphous Sediment Urine Present (None Prsent)
[2024-05-22 00:29] LABS: Urine Potassium 85.7 mmol/L
[2024-05-22 07:24] LABS: Hematocrit (blood only) 18.6 % (42.0-52.0); Hemoglobin 5.9 g/dl (14.0-18.0); Mean Corpuscular Hemoglobin 31.7 pg (25.0-34.0); Mean Corpuscular Hgb Conc 31.7 g/dL (32.0-36.0); Mean Platelet Volume 12.8 fL (9.4-12.4); Platelet Count 54 K/uL (130-400); Red Blood Count 1.86 M/uL (4.70-6.10); White Blood Count 2.58 K/ul (4.8-10.8)
[2024-05-22 07:39] LABS: BUN Creatinine Ratio 15.4 (10-20); Calcium 7.7 mg/dl (8.6-10.3); Creatinine Clr Calc Pharmacy 25.8 ml/min; Est GFR (African American) 27.1 ml/min; Est GFR (Non-African American) 23.4 ml/min; Potassium 3.7 mmol/L (3.5-5.1)
[2024-05-22] MEDS ORDERED: SODIUM CHLORIDE 0.9% 250 ML IV PRN (07:49)
[2024-05-22 07:56] LABS: Basophils # (auto) 0.01 K/uL (0.00-0.20); Basophils % (auto) 0.4 %; Eosinophils # (auto) 0.25 K/uL (0.00-0.50); Eosinophils % (auto) 9.7 %; Immature Granulocytes # (auto) 0.01 K/uL (0.01-0.20); Immature Granulocytes % (auto) 0.4 %; Lymphocytes # (auto) 0.44 K/uL (1.20-3.40); Lymphocytes % (auto) 17.1 %; Monocytes # (auto) 0.16 K/uL (0.11-0.59); Monocytes % (auto) 6.2 %; Neutrophils # (auto) 1.71 K/uL (1.40-6.50); Neutrophils % (auto) 66.2 %; Ovalocytes 1+; Polychromasia 1+; Tear Drop Cells 1+
--- NOTE | 2024-05-22 09:24 | Gastroenterology Progress Note ---
Date of Service May 22, 2024 Assessment & Plan (1) Abdominal ascites: Plan: 73 year old male with history of FOFANA cirrhosis MELD 21, hx of esophageal varices, ascites s/p TIPS, HCC s/p IR embolization, GAVE and rectal angioectasia s/p APC treatment, prostate ca, CKD, DM II admitted with volume overload S/P paracentesis w/ 3L off, initial studies without SBP. Rising METAL PATTERN MAKER, drop in HGB w/o evidence of GI bleeding - KUB today - CKD - Rising METAL PATTERN MAKER to 2.59 - Albumin 25% 25G TID - urine sodium 40 - Appreciate nephrology consultation - Ascites - No SBP on fluid studies - Follow culture - Trend METAL PATTERN MAKER - Last OP nephrology note in 2021 notes baseline METAL PATTERN MAKER 1.3-1.4 - Agree w/ albumin - Resume Lasix when able - He has not been on Aldactone but unclear why, will defer senior living management to his regular GI provider - Continue lactulose - Continue Xifaxan - MELD labs every 6 months - ABD imaging w/ AFP every 6 months - EGD every 1-2 years - No ETOH - No NSAIDs - Avoid hepatotoxin - Low NA diet, less than 2G daily - Less than 2G acetaminophen containing products daily - Defer management of pancreatic lesion to his primary OP GI provider, EUS recommended if not previously completed - ED for emergencies - Please call with any questions or concerns Thank you for allowing us to participate in the care of this patient. Please call with any acute changes, questions or concerns. Please see addendum below with additional recommendation from my supervising physician. I spent a total of 60 minutes on the date of service in review of patient's record, and previously obtained information in person and appropriate medical visit, discussion and education of plan, with patient and/or caregiver, placing orders for tests/referral/procedures as medically necessary and documentation of pertinent clinical information in patient's medical records for their visit today. Admission and Anticipated Discharge Date Admission Date: May 20, 2024 Supervising Physician Co-Signing Physician Notes I examined the patient and reviewed patient's chart , laboratory data and imaging studies. I agree with with assessment and plan of care as suggested by advanced practice provider. Worsening anemia, likely anemia of chronic disease/chronic renal failure, rule out spur cell anemia. No evidence of GI bleeding. Subjective Pt was seen and evaluated, chart reviewed. Notes he has had some return of abd pain this AM. Feels like sharp, pressure in lower abd no BM in about 2 days Denies any nausea, vomiting No black or bloody stools or emesis. METAL PATTERN MAKER rising Drop in HGB w/o apparent GI bleeding. His gross hematuria has decreased. MELD 21 Review of Systems Review of Systems: All systems reviewed & are unremarkable except as noted in HPI & below Physical Exam Constitutional: WD/WN, vitals as above In no acute distress but chronically ill appearing Respiratory: normal respiratory effort, lungs clear to auscultation Cardiovascular: Rate/Rhythm: regular rate and regular rhythm Gastrointestinal (Abdomen): normal bowel sounds, soft, nontender, no hepatosplenomegaly Skin: no rashes, warm and dry Results & Data Results & Data Vital Signs (Past 12 Hours) Vital Signs Temp Pulse Pulse Resp BP BP Pulse Ox 05/22/24 07:27 36.7 C 57 L 18 112/55 L 95 05/22/24 03:11 37.0 C 65 18 129/47 L 90 05/21/24 22:51 37.1 C 70 18 123/52 L 96 05/21/24 21:58 67 O2 Del Method 05/22/24 07:27 Room Air 05/22/24 03:11 Room Air 05/21/24 22:51 Room Air 05/21/24 21:58 Laboratory Results 05/22/24 05/22/24 05/22/24 Range/Units 08:09 07:57 06:45 WBC 2.58 L (4.8-10.8) K/ul RBC 1.86 L (4.70-6.10) M/uL Hgb 5.9 L* (14.0-18.0) g/dl Hct 18.6 L* (42.0-52.0) % MCV 100.0 (80.0-100.0) fL MCH 31.7 (25.0-34.0) pg MCHC 31.7 L (32.0-36.0) g/dL RDW Std Deviation 69.0 H (36.4-46.3) fL RDW Coeff of [place] 19.0 H (11.5-14.5) % Plt Count 54 L (130-400) K/uL MPV 12.8 H (9.4-12.4) fL Immature Gran % (Auto) 0.4 % Neut % (Auto) 66.2 % Lymph % (Auto) 17.1 % [place] % (Auto) 6.2 % Eos % (Auto) 9.7 % Baso % (Auto) 0.4 % Neut # (Auto) 1.71 (1.40-6.50) K/uL Lymph # (Auto) 0.44 L (1.20-3.40) K/uL [place] # (Auto) 0.16 (0.11-0.59) K/uL Eos # (Auto) 0.25 (0.00-0.50) K/uL Baso # (Auto) 0.01 (0.00-0.20) K/uL Immature Gran # (Auto) 0.01 (0.01-0.20) K/uL Polychromasia 1+ Anisocytosis Tear Drop Cells 1+ Ovalocytes 1+ Sodium 140 (136-145) mmol/L Potassium 3.7 (3.5-5.1) mmol/L Chloride 110 H (98-107) mmol/L Carbon Dioxide 22 (21-32) mmol/L Anion Gap 8 (3-11) BUN 40 H (6-23) mg/dl Creatinine 2.59 H (0.6-1.4) mg/dl Est Cr Clr Drug Dosing 25.8 ml/min Est GFR ( Amer) 27.1 ml/min Est GFR (Non-Af Amer) 23.4 ml/min BUN/Creatinine Ratio 15.4 (10-20) Glucose 129 H (70-99(Fasting)) mg/dl POC Glucose 140 H (70-99) mg/dl Calcium 7.7 L (8.6-10.3) mg/dl Magnesium (1.7-2.4) mg/dl Total Bilirubin (0.2-1.0) mg/dl AST (13-39) U/L ALT (7-52) U/L Alkaline Phosphatase (34-104) U/L Total Protein (6.0-8.3) gm/dl Albumin (3.4-5.0) gm/dl Globulin (2.5-4.0) gm/dl Albumin/Globulin Ratio (0.9-2) Urine Color Urine Appearance (Clear) Urine pH (4.5-7.5) Ur Specific [place] (1.000-1.030) Urine Protein (Negative) Urine Glucose (UA) (Negative) Urine Ketones (Negative) Urine Blood (Negative) Urine Nitrite (Negative) Urine Bilirubin (Negative) Urine Urobilinogen (Negative) Ur Leukocyte Esterase (Negative) Urine WBC (Auto) (0-5) /hpf Urine RBC (Auto) (0-2) /hpf U Hyaline Cast (Auto) (0-2) /lpf U Epithel Cells (Auto) (0-2) /hpf Urine Bacteria (Auto) (None Seen) Amorphous Sediment (None Prsent) Urine Sodium mmol/L Urine Potassium mmol/L Urine Chloride mmol/L Blood Type O Positive Antibody Screen NEGATIVE Crossmatch See Detail 05/21/24 05/21/24 05/21/24 Range/Units 23:42 20:13 16:58 WBC (4.8-10.8) K/ul RBC (4.70-6.10) M/uL Hgb (14.0-18.0) g/dl Hct (42.0-52.0) % MCV (80.0-100.0) fL MCH (25.0-34.0) pg MCHC (32.0-36.0) g/dL RDW Std Deviation (36.4-46.3) fL RDW Coeff of [place] (11.5-14.5) % Plt Count (130-400) K/uL MPV (9.4-12.4) fL Immature Gran % (Auto) % Neut % (Auto) % Lymph % (Auto) % [place] % (Auto) % Eos % (Auto) % Baso % (Auto) % Neut # (Auto) (1.40-6.50) K/uL Lymph # (Auto) (1.20-3.40) K/uL [place] # (Auto) (0.11-0.59) K/uL Eos # (Auto) (0.00-0.50) K/uL Baso # (Auto) (0.00-0.20) K/uL Immature Gran # (Auto) (0.01-0.20) K/uL Polychromasia Anisocytosis Tear Drop Cells Ovalocytes Sodium (136-145) mmol/L Potassium (3.5-5.1) mmol/L Chloride (98-107) mmol/L Carbon Dioxide (21-32) mmol/L Anion Gap (3-11) BUN (6-23) mg/dl Creatinine (0.6-1.4) mg/dl Est Cr Clr Drug Dosing ml/min Est GFR ( Amer) ml/min Est GFR (Non-Af Amer) ml/min BUN/Creatinine Ratio (10-20) Glucose (70-99(Fasting)) mg/dl POC Glucose 202 H 178 H (70-99) mg/dl Calcium (8.6-10.3) mg/dl Magnesium (1.7-2.4) mg/dl Total Bilirubin (0.2-1.0) mg/dl AST (13-39) U/L ALT (7-52) U/L Alkaline Phosphatase (34-104) U/L Total Protein (6.0-8.3) gm/dl Albumin (3.4-5.0) gm/dl Globulin (2.5-4.0) gm/dl Albumin/Globulin Ratio (0.9-2) Urine Color [place] Urine Appearance Turbid A (Clear) Urine pH 5.0 (4.5-7.5) Ur Specific [place] 1.026 (1.000-1.030) Urine Protein 3+ H (Negative) Urine Glucose (UA) Negative (Negative) Urine Ketones Trace H (Negative) Urine Blood 3+ H (Negative) Urine Nitrite Negative (Negative) Urine Bilirubin Negative (Negative) Urine Urobilinogen Negative (Negative) Ur Leukocyte Esterase 1+ H (Negative) Urine WBC (Auto) 11-20 H (0-5) /hpf Urine RBC (Auto) >20 H (0-2) /hpf U Hyaline Cast (Auto) 0-2 (0-2) /lpf U Epithel Cells (Auto) 0-2 (0-2) /hpf Urine Bacteria (Auto) None Seen (None Seen) Amorphous Sediment Present A (None Prsent) Urine Sodium 40 mmol/L Urine Potassium 85.7 mmol/L Urine Chloride 28 mmol/L Blood Type Antibody Screen Crossmatch 05/21/24 05/21/24 Range/Units 11:52 09:21 WBC 3.57 L (4.8-10.8) K/ul RBC 2.34 L (4.70-6.10) M/uL Hgb 7.5 L (14.0-18.0) g/dl Hct 23.6 L (42.0-52.0) % MCV 100.9 H (80.0-100.0) fL MCH 32.1 (25.0-34.0) pg MCHC 31.8 L (32.0-36.0) g/dL RDW Std Deviation 71.2 H (36.4-46.3) fL RDW Coeff of [place]ta 19.5 H (11.5-14.5) % Plt Count 75 L (130-400) K/uL MPV 12.5 H (9.4-12.4) fL Immature Gran % (Auto) 0.3 % Neut % (Auto) 70.1 % Lymph % (Auto) 14.8 % [place] % (Auto) 6.4 % Eos % (Auto) 8.1 % Baso % (Auto) 0.3 % Neut # (Auto) 2.50 (1.40-6.50) K/uL Lymph # (Auto) 0.53 L (1.20-3.40) K/uL [place] # (Auto) 0.23 (0.11-0.59) K/uL Eos # (Auto) 0.29 (0.00-0.50) K/uL Baso # (Auto) 0.01 (0.00-0.20) K/uL Immature Gran # (Auto) 0.01 (0.01-0.20) K/uL Polychromasia 1+ Anisocytosis Present Tear Drop Cells 1+ Ovalocytes 1+ Sodium 138 (136-145) mmol/L Potassium 3.9 (3.5-5.1) mmol/L Chloride 108 H (98-107) mmol/L Carbon Dioxide 22 (21-32) mmol/L Anion Gap 8 (3-11) BUN 36 H (6-23) mg/dl Creatinine 2.37 H D (0.6-1.4) mg/dl Est Cr Clr Drug Dosing 28.2 ml/min Est GFR ( Amer) 30.1 ml/min Est GFR (Non-Af Amer) 26.0 ml/min BUN/Creatinine Ratio 15.2 (10-20) Glucose 148 H (70-99(Fasting)) mg/dl POC Glucose 144 H (70-99) mg/dl Calcium 7.6 L (8.6-10.3) mg/dl Magnesium 2.5 H (1.7-2.4) mg/dl Total Bilirubin 3.4 H D (0.2-1.0) mg/dl AST 27 (13-39) U/L ALT 15 (7-52) U/L Alkaline Phosphatase 146 H (34-104) U/L Total Protein 5.2 L (6.0-8.3) gm/dl Albumin 2.9 L (3.4-5.0) gm/dl Globulin 2.3 L (2.5-4.0) gm/dl Albumin/Globulin Ratio 1.3 (0.9-2) Urine Color Urine Appearance (Clear) Urine pH (4.5-7.5) Ur Specific [place] (1.000-1.030) Urine Protein (Negative) Urine Glucose (UA) (Negative) Urine Ketones (Negative) Urine Blood (Negative) Urine Nitrite (Negative) Urine Bilirubin (Negative) Urine Urobilinogen (Negative) Ur Leukocyte Esterase (Negative) Urine WBC (Auto) (0-5) /hpf Urine RBC (Auto) (0-2) /hpf U Hyaline Cast (Auto) (0-2) /lpf U Epithel Cells (Auto) (0-2) /hpf Urine Bacteria (Auto) (None Seen) Amorphous Sediment (None Prsent) Urine Sodium mmol/L Urine Potassium mmol/L Urine Chloride mmol/L Blood Type Antibody Screen Crossmatch PG Care Time/CCT Total # of Minutes Spent Total Time Spent with Patient: Total time spent is greater than 50% in coordination of care (as documented) at patient's floor/unit and/or counseling patient: Coding Level of Care Code 06621 SUB INP/OBS CARE 3/50MIN Diagnoses Other ascites R18.8 Ascites type: other type (1) Abdominal ascites Ascites type: other type Qualified Code(s): R18.8 - Other ascites
[2024-05-22] MEDS: ALBUMIN 25% 25 GM/100 ML VIAL IV SCH (10:50)
[2024-05-22] MEDS: LACTULOSE SYRUP 30 GM/45 ML UDP PO STA (11:14)
--- NOTE | 2024-05-22 11:41 | XRay Report ---
KUB HISTORY: Acute generalized abdominal pain with constipation r/o ileus, constipation COMPARISON: CT 05/20/2024 FINDINGS: Right upper quadrant TIPS shunt. Cholelithiasis. Moderate colonic fecal retention. Nonobstr uctive bowel gas pattern. No renal calculi. No ureteral calculi. No pneumoperitoneum or pneumatosis. No fracture. IMPRESSION: 1. Moderate fecal retention with nonobstructive bowel gas pattern. 2. Tips shunt. 3. Cholelithiasis. ACT 112: Negative or not required by law. The above report was generated using voice recognition software. It may contain grammatical, syntax o r spelling errors. Electronically signed by: Yovany Gonzalez M.D. 05/22/2024 11:39 AM
--- NOTE | 2024-05-22 14:37 | Hospitalist Progress Note ---
Date of Service May 22, 2024 Assessment & Plan (1) Abdominal ascites: (2) LUCRETIA (acute kidney injury): Plan Patient presented with abdominal pain and distention. History of decompensated liver cirrhosis; currently on paracentesis every 2 weeks. History of cirrhosis status post TIPS. CT abdomen pelvis showed cirrhotic liver with splenomegaly and large ascites. Focal hypodense lesion in pancreatic head. Chest x-ray on admission; no acute finding Renal ultrasound showed prostatomegaly with evidence of chronic outlet obstruction. Layering hemorrhage within urinary bladder lumen Portal vein ultrasound did not show any thrombosis. Status post therapeutic paracentesis with removal of 3200 cc of fluids Studies do not suggest spontaneous bacterial peritonitis Urine culturenegative Blood culture NGTD Creatinine up trended 2.37; baseline of 1.5. Continue on empiric antibiotics. Follow-up on blood culture Continue on 100 g of 25% albumin for possible hepatorenal syndrome. Nephrology on board; appreciate recommendation Continue to monitor for hematuria. History of radiation cystitis status post cystourethroscopy with clot evacuation and fulguration. Will continue to hold Lasix; will likely need Lasix to be restarted as outpatient. GI consulted given CT abdomen/pelvis findings; they recommend outpatient EUS for evaluation of possible pancreatic head mass. KUB shows constipation; will give him lactulose enema every 8 hours Acute blood loss anemia Hematuria secondary to radiation cystitis History of prostate cancer s/p radiation complicated by radiation cystitis Recently [place] in [facility] [place] [facility] [place] 08 to May 12 where he had cystourethroscopy with clot evacuation and fulguration. Presented with hematuria again; no clots seen. Renal usg as above Hemoglobin dropped down to 5.9 g/dL Will transfuse him 1 unit of packed RBC Monitor for signs of recurrence of hematuria Chronic conditions Recurrent hepatocellular carcinoma status post IR embolization DM2 insulin requiring, well-controlled as of recent hemoglobin A1c of 5.6, January 2024 history GAVE/esophageal varices/portal hypertensive gastropathy/radiation proctitis/diverticulosis restrictive lung disease as per records/pulmonary hypertension, baseline lung status. BPH/prostate cancer status post radiation Full code DVT prophylaxis SCDs Time spent evaluating patient, direct bedside care, chart review, placing orders, interpretation of diagnostic studies, discussion with consultants, patient, and family members, as well as other required patient management activities is 50 minutes Please note the above document was generated using voice recognition software. It may contain grammatical, syntax or spelling errors. Any formal questions or concerns about the content, text or information contained within the body of this dictation should be directly addressed to the provider for clarification Admission and Anticipated Discharge Date Admission Date: May 20, 2024 Subjective Patient seen and examined at bedside. He reports of abdominal discomfort and pain on the right side. Urine clear and concentrated; no symptoms of hematuria Vitals are stable and he is saturating well on room air Review of Systems Review of Systems: All systems reviewed & are unremarkable except as noted in Subjective Physical Exam Physical Exam: Constitutional: WD/WN, vitals as above, NAD, sitting up in bed, pleasant, conversing easily Respiratory: normal respiratory effort, lungs clear to auscultation, no wheeze, rales, rhonchi. Normal insp/exp effort, no accessory muscle use Cardiovascular: RRR, no murmur, no edema Vessels: no JVD or carotid bruit Chest: normal inspection of chest Abdomen: Slightly distended;Tenderness on right lower quadrant.. Bowel sound present Musculoskeletal: no cyanosis or clubbing, extremities motor strength 5/5 Skin: no rashes, warm and dry normal turgor Neurologic: PERRL, EOMI, accommodation nl, no face palsy, no dysarthria CN's II- XI intact bilaterally and moves all extremities Psychiatric: A+Ox3, euthymic affect Results & Data Results & Data Vital Signs (Past 12 Hours) Vital Signs Temp Pulse Pulse Resp BP BP BP 05/22/24 12:00 36.8 C 59 L 16 148/68 H 05/22/24 11:30 36.8 C 61 16 142/64 H 05/22/24 11:00 36.9 C 60 16 144/64 H 05/22/24 10:45 36.5 C 59 L 16 146/59 H 05/22/24 10:26 36.9 C 60 20 135/63 05/22/24 07:27 36.7 C 57 L 18 112/55 L 05/22/24 03:11 37.0 C 65 18 129/47 L Pulse Ox O2 Del Method 05/22/24 12:00 98 05/22/24 11:30 97 05/22/24 11:00 95 05/22/24 10:45 96 05/22/24 10:26 97 05/22/24 07:27 95 Room Air 06/21/24 03:11 90 Room Air (1) Abdominal ascites Ascites type: other type Qualified Code(s): R18.8 - Other ascites
[2024-05-22] MEDS: LACTULOSE SYRUP 10 GM/15 ML BTL 960 ML PO SCH (16:20)
--- NOTE | 2024-05-22 17:52 | Nephrology Progress Note ---
Date of Service May 22, 2024 Assessment & Plan (1) LUCRETIA (acute kidney injury): Plan: slightly worse nonoliguric Stage 2 nonoliguric acute kidney injury in the setting of worsening volume overload from liver disease and requiring more frequent paracenteses recently after his diuretics were held. Ischemic ATN is likeliest dx versus prerenal but many are possible; cannot R/O HRS. Urinalysis notable for ketonuria, 3+ blood and protein with specific gravity 1026 and a pH of 5; He has 11-20 white cells per high-powered field and some leukocyte Estrace; also some amorphous sediment present. No urinary tract infection. Significance of proteinuria difficult to establish in patient with long history of radiation cystitis. Does have elevated urine sodium, also likely challenging to interpret in the setting. However lack of infection is reassuring. No obstructive process. No indication for dialysis -- still volume overloaded but chemistries acceptable Agree with holding diuretics for now Continue conservative management by avoiding NSAIDs and IV contrast unless life or limb saving Daily basic metabolic panel Daily standing weight: Standing weights only ordered - will limit fluids to 1.5 L and ordered low na diet Agree with albumin, 48 hours worth Urinalysis and microscopy ordered (2) Abdominal pain: Plan: Imaging with constipation: For lactulose enema For outpatient endoscopic ultrasound to evaluate possible pancreatic head mass (3) Acute on chronic blood loss anemia: Plan: Status post packed red cells today x 1 unit Okay to use diuretics after transfusion as indicated; does not appear to receive these today Trend hemoglobin Question rectal bleeding per his report; not aware of overt gross hematuria, though urine orange and power-tinged on my assessment and on lab specimens Admission and Anticipated Discharge Date Admission Date: May 20, 2024 Subjective Tells me he feels terrible today d/t ongoing lower abd pain. No clear source of bleeding though pt thinks a hemorrhoid may have burst. no sob, no n/v. Physical Exam 2 Constitutional: well developed, + frail appearing and cooperative; no acute distress Eyes: EOM intact bilaterally ENMT: Ears: no external ear abnormality Nose: no external nose abnormality Mouth: + dry oral mucous membranes Neck: no nuchal rigidity Respiratory: normal respiratory effort Auscultation: + diminished lung sounds Cardiovascular: Rate/Rhythm: regular rate and regular rhythm Extremities: + edema (2+ bilateral lower extremities to the knees) Gastrointestinal (Abdomen): Inspection/Auscultation: normal bowel sounds P ercussion/Palpation: + abdomen tender (Nontender except focally left lower quadrant without guarding or rebound), abdomen soft and + ascites Musculoskeletal: Extremities: strength 5/5 throughout Skin: no rashes, warm and dry + jaundice (Slight) Psychiatric: Orientation: alert and oriented x 3 Results & Data Vital Signs (Past 12 Hours) Vital Signs Temp Pulse Pulse Resp BP BP Pulse Ox 05/22/24 16:35 36.9 C 60 16 152/67 H 99 05/22/24 12:00 36.8 C 59 L 16 148/68 H 98 05/22/24 11:30 36.8 C 61 16 142/64 H 97 05/22/24 11:00 36.9 C 60 16 144/64 H 95 05/22/24 10:45 36.5 C 59 L 16 146/59 H 96 05/22/24 10:26 36.9 C 60 20 135/63 97 05/22/24 07:27 36.7 C 57 L 18 112/55 L 95 O2 Del Method 05/22/24 16:35 Room Air 05/22/24 12:00 05/22/24 11:30 05/22/24 11:00 05/22/24 10:45 05/22/24 10:26 05/22/24 07:27 Room Air Laboratory Results 05/22/24 06:45 05/22/24 06:45
[2024-05-22] MEDS: ALBUMIN 25% 25 GM/100 ML VIAL IV ONE (20:22)
[2024-05-22] MEDS: LACTULOSE 200GM/700ML WTR ENEMA PR SCH (20:59)
[2024-05-23 07:46] LABS: Calcium 8.6 mg/dl (8.6-10.3)
[2024-05-23 07:52] LABS: BUN Creatinine Ratio 14.4 (10-20); Creatinine Clr Calc Pharmacy 25.4 ml/min; Est GFR (African American) 26.6 ml/min; Est GFR (Non-African American) 22.9 ml/min
[2024-05-23 08:00] LABS: Hemoglobin 8.1 g/dl (14.0-18.0); Mean Corpuscular Hgb Conc 32.4 g/dL (32.0-36.0); Mean Corpuscular Volume 98.8 fL (80.0-100.0); Mean Platelet Volume 12.2 fL (9.4-12.4); Platelet Count 50 K/uL (130-400); RDW Coefficient of Variation 19.3 % (11.5-14.5); RDW Standard Deviation 67.8 fL (36.4-46.3); Red Blood Count 2.53 M/uL (4.70-6.10); White Blood Count 4.07 K/ul (4.8-10.8)
[2024-05-23 08:24] LABS: RBC Morphology Unremarkable
--- NOTE | 2024-05-23 09:51 | Nephrology Progress Note ---
Date of Service May 23, 2024 Assessment & Plan (1) LUCRETIA (acute kidney injury): Plan: Nonoliguric Stage 2 acute kidney injury in the setting of worsening volume overload from liver disease and requiring more frequent paracenteses recently after his diuretics were held. Ischemic ATN is likeliest dx versus prerenal but many are possible; cannot R/O HRS. Urinalysis notable for ketonuria, 3+ blood and protein with specific gravity 1026 and a pH of 5; He has 11-20 white cells per high-powered field and some leukocyte Estrace; also some amorphous sediment present. No urinary tract infection. Significance of proteinuria difficult to establish in patient with long history of radiation cystitis. Does have elevated urine sodium, also likely challenging to interpret in the setting. However lack of infection is reassuring. No obstructive process. No indication for dialysis -- still volume overloaded but chemistries acceptable>> Start on furosemide 40 mg with 100 mg Aldactone. Continue conservative management by avoiding NSAIDs and IV contrast unless life or limb saving Daily basic metabolic panel Daily standing weight: Standing weights only ordered - will limit fluids to 1.5 L and ordered low na diet (2) Abdominal pain: Plan: Imaging with constipation: For lactulose enema For outpatient endoscopic ultrasound to evaluate possible pancreatic head mass (3) Acute on chronic blood loss anemia: Plan: Status post packed red cells today x 1 unit Okay to use diuretics as above. Admission and Anticipated Discharge Date Admission Date: May 20, 2024 Subjective Tells me he feels terrible today d/t ongoing lower abd pain. No clear source of bleeding though pt thinks a hemorrhoid may have burst. no sob, no n/v. Review of Systems 2 Review of Systems: Comfortable, Grossly distended abdomen ,but non tender Physical Exam 2 Physical Exam: GENERAL APPEARANCE: calm gentleman no acute distress. HEENT: NC, AT. MMM. EOMI, clear conjunctiva, oropharynx clear. NECK: Supple without lymphadenopathy. No stiffness or restricted ROM. HEART: Normal rate and regular rhythm, normal S1/S1, no m/r/g LUNGS: CTAB, moving air well. No crackles or wheezes are heard. ABDOMEN: Soft, nontender, Grossly distended EXTREMITIES: bilateral 1+ pitting edema NEUROLOGICAL: Grossly nonfocal. Alert and oriented, moving all 4 extremities. Results & Data Vital Signs (Past 12 Hours) Vital Signs Temp Pulse Pulse Resp BP Pulse Ox O2 Del Method 05/23/24 07:41 37.0 C 67 16 167/60 H 94 Room Air 05/23/24 07:11 64 05/23/24 03:08 36.9 C 66 18 132/64 94 Room Air 05/22/24 23:25 72 05/22/24 23:15 37.0 C 72 18 123/54 L 90 Room Air 05/22/24 23:03 Room Air Laboratory Results 05/23/24 06:38 05/23/24 06:38
[2024-05-23] MEDS: SPIRONOLACTONE 25 MG TAB PO SCH (11:27)
[2024-05-23] MEDS: FUROSEMIDE 40 MG TAB PO ONE (11:27)
--- NOTE | 2024-05-23 14:36 | Hospitalist Progress Note ---
Date of Service May 23, 2024 Assessment & Plan (1) Abdominal ascites: (2) LUCRETIA (acute kidney injury): Plan Patient presented with abdominal pain and distention. History of decompensated liver cirrhosis; currently on paracentesis every 2 weeks. History of cirrhosis status post TIPS. CT abdomen pelvis showed cirrhotic liver with splenomegaly and large ascites. Focal hypodense lesion in pancreatic head. Chest x-ray on admission; no acute finding Renal ultrasound showed prostatomegaly with evidence of chronic outlet obstruction. Layering hemorrhage within urinary bladder lumen Portal vein ultrasound did not show any thrombosis. Status post therapeutic paracentesis with removal of 3200 cc of fluids Studies do not suggest spontaneous bacterial peritonitis. Urine culturenegative Blood culture NGTD Creatinine up trended 2.37; baseline of 1.5. DC antiboitics s/p 100 g of 25% albumin for possible hepatorenal syndrome on May 21 and May 22. Nephrology on board; discussed; recommend to start lasix and spironolactione Continue to monitor for hematuria. History of radiation cystitis status post cystourethroscopy with clot evacuation and fulguration. GI consulted given CT abdomen/pelvis findings; they recommend outpatient EUS for evaluation of possible pancreatic head mass. Continue lactulose enema every 8 hours Acute blood loss anemia Hematuria secondary to radiation cystitis History of prostate cancer s/p radiation complicated by radiation cystitis Recently admitted in [facility] [place] May 08 to May 12 where he had cystourethroscopy with clot evacuation and fulguration. Presented with hematuria again; no clots seen. Renal usg as above Hemoglobin dropped down to 5.9 g/dL s/p 1 unit of packed RBCs on 05/22 Continue to monitor hematuria Chronic conditions Recurrent hepatocellular carcinoma status post IR embolization DM2 insulin requiring, well-controlled as of recent hemoglobin A1c of 5.6, January 2024 history GAVE/esophageal varices/portal hypertensive gastropathy/radiation proctitis/diverticulosis restrictive lung disease as per records/pulmonary hypertension, baseline lung status. BPH/prostate cancer status post radiation Full code DVT prophylaxis SCDs Time spent evaluating patient, direct bedside care, chart review, placing orders, interpretation of diagnostic studies, discussion with consultants, patient, and family members, as well as other required patient management activities is 50 minutes Please note the above document was generated using voice recognition software. It may contain grammatical, syntax or spelling errors. Any formal questions or concerns about the content, text or information contained within the body of this dictation should be directly addressed to the provider for clarification Admission and Anticipated Discharge Date Admission Date: May 20, 2024 Subjective Patient reports improvement in abdominal pain compared to yesterday Urine output of 850 cc yesterday Review of Systems Review of Systems: All systems reviewed & are unremarkable except as noted in Subjective Physical Exam Physical Exam: Constitutional: WD/WN, vitals as above, NAD, sitting up in bed, pleasant, conversing easily Respiratory: normal respiratory effort, lungs clear to auscultation, no wheeze, rales, rhonchi. Normal insp/exp effort, no accessory muscle use Cardiovascular: RRR, no murmur, no edema Vessels: no JVD or carotid bruit Chest: normal inspection of chest Abdomen: Slightly distended;Tenderness on right lower quadrant.. Bowel sound present Musculoskeletal: no cyanosis or clubbing, extremities motor strength 5/5 Skin: no rashes, warm and dry normal turgor Neurologic: PERRL, EOMI, accommodation nl, no face palsy, no dysarthria CN's II- XI intact bilaterally and moves all extremities Psychiatric: A+Ox3, euthymic affect Results & Data Results & Data Vital Signs (Past 12 Hours) Vital Signs Temp Pulse Pulse Resp BP Pulse Ox O2 Del Method 05/23/24 11:58 36.8 C 67 16 183/67 H 94 Room Air 05/23/24 07:41 37.0 C 67 16 167/60 H 94 Room Air 05/23/24 07:11 64 05/23/24 03:08 36.9 C 66 18 132/64 94 Room Air (1) Abdominal ascites Ascites type: other type Qualified Code(s): R18.8 - Other ascites
[2024-05-23] MEDS: oxyBUTYnin chloride 5 MG TAB PO PRN (14:52)
[2024-05-23] MEDS: ACETAMINOPHEN 500 MG TAB PO PRN (17:47)
[2024-05-23] MEDS: LACTULOSE SYRUP 20 GM/30 ML UDC PO SCH (21:00)
[2024-05-24] MEDS: oxyCODONE HCL IR 5 MG TAB (IMMEDIATE RELEASE) PO PRN (01:08)
[2024-05-24 06:55] LABS: Basophils # (auto) 0.01 K/uL (0.00-0.20); Basophils % (auto) 0.2 %; Eosinophils # (auto) 0.18 K/uL (0.00-0.50); Eosinophils % (auto) 3.3 %; Hematocrit (blood only) 26.5 % (42.0-52.0); Hemoglobin 8.5 g/dl (14.0-18.0); Immature Granulocytes # (auto) 0.03 K/uL (0.01-0.20); Immature Granulocytes % (auto) 0.5 %; Lymphocytes # (auto) 0.54 K/uL (1.20-3.40); Lymphocytes % (auto) 9.9 %; Mean Corpuscular Hemoglobin 31.6 pg (25.0-34.0); Mean Corpuscular Hgb Conc 32.1 g/dL (32.0-36.0); Mean Corpuscular Volume 98.5 fL (80.0-100.0); Mean Platelet Volume 10.9 fL (9.4-12.4); Monocytes # (auto) 0.32 K/uL (0.11-0.59); Monocytes % (auto) 5.9 %; Neutrophils # (auto) 4.39 K/uL (1.40-6.50); Neutrophils % (auto) 80.2 %; Platelet Count 66 K/uL (130-400); RDW Coefficient of Variation 19.3 % (11.5-14.5); RDW Standard Deviation 68.4 fL (36.4-46.3); Red Blood Count 2.69 M/uL (4.70-6.10); White Blood Count 5.47 K/ul (4.8-10.8)
[2024-05-24 07:15] LABS: BUN Creatinine Ratio 12.9 (10-20); Calcium 8.3 mg/dl (8.6-10.3); Creatinine Clr Calc Pharmacy 24.7 ml/min; Est GFR (African American) 25.6 ml/min; Est GFR (Non-African American) 22.1 ml/min; Potassium 4.2 mmol/L (3.5-5.1)
[2024-05-24] MEDS: FUROSEMIDE 40 MG TAB PO SCH (07:53)
[2024-05-24] MEDS: SPIRONOLACTONE 100 MG TAB PO SCH (08:37)
[2024-05-24] MEDS: PIPERACILLIN/TAZOBACTAM 4.5 GM in DEXTROSE 5% MINI-B 100 ML IV SCH ×2 (11:29→17:05)
--- NOTE | 2024-05-24 11:41 | CT Scan Report ---
CT SCAN OF THE ABDOMEN AND PELVIS WITHOUT IV CONTRAST CLINICAL HISTORY: Right lower quadrant abdominal pain. COMPARISON STUDY: Prior abdominal CT scans, most recently dated 05/20/2024. TECHNIQUE: Unenhanced CT scan of the abdomen and pelvis is performed from the lung bases to the proxi mal femora. Images are reviewed in the axial, sagittal, and coronal planes. IV contrast was not admin istered as per the referring clinician. Note that the examination was performed in significantly subo ptimal fashion without oral and IV contrast. A dose lowering technique was utilized adhering to the p rinciples of KIMBERLY. CT DOSE: 1285.6 mGy.cm FINDINGS: Lung bases: The heart is mildly enlarged noting a small pericardial effusion. The coronary arteries a re densely calcified. There is diminished attenuation of the cardiac blood pool as compared to the my ocardium suggesting anemia. There are small pleural effusions, right larger than left with bibasilar consolidation. This is significantly greater on the right. There is a small hiatal hernia. Gynecomast ia is noted. Liver: The unenhanced liver is cirrhotic morphology and heterogeneous in attenuation. There is no int rahepatic biliary ductal dilatation. A TIPS catheter is in place. A subtle left lobe hepatic mass is again seen below the diaphragm on image #[id number]. This not well delineated without IV contrast. Gallbladder: There are calcified gallstones without CT evidence of acute cholecystitis. Spleen: The spleen is enlarged measuring 16.1 cm in length. There is a splenorenal shunt. Pancreas: A 2.2 cm simple cystic lesion is again seen in the pancreatic head/uncinate. The unenhanced pancreas is otherwise grossly unremarkable. Adrenal glands: Unremarkable. Kidneys: The unenhanced kidneys demonstrate cortical atrophy and there are without hydronephrosis. . No renal calculi are identified A 1.6 cm hyperdense cyst is again seen in the anterior interpolar lef t kidney. Abdominal vasculature: The abdominal aorta is normal in course and caliber noting [id number] at herosclerotic calcification. Bowel: There is moderate to advanced colonic diverticulosis without CT evidence of acute diverticulit is. No bowel obstruction is seen. Fecal retention and liquid stool is noted in the colon. The appendi x is well-visualized and normal. Peritoneum: There is a moderate volume of abdominopelvic ascites. No intraperitoneal free air is seen . There is a fat and fluid containing umbilical hernia. Lymphadenopathy: Prominent lymph nodes in the upper abdomen/shwetha hepatis are nonspecific and likely related to chronic liver disease. Pelvic viscera: The prostate gland is enlarged and heterogeneous. The bladder wall is significantly t hickened and irregular indicating chronic outlet obstruction. There is infiltration around the bladde r and prostate. Hyperdense material within the posterior bladder lumen on image #325 was not seen on 05/20/2024 and may represent blood clots. Skeletal structures: The skeletal structures are osteopenic. Again seen is a subacute superior endpla te compression fracture of L2 with mild loss of height and minimal retropulsion of fragments. There i s subacute/healing 3 column fracture of the T12 vertebral body. This is unchanged from recent prior e xaminations. A chronic superior endplate compression deformity of L1 is unchanged. No lytic or blasti c lesions are seen. There is a sacral spondylosis. Degenerative change and partial fusion is seen in the sacroiliac joints. Arthritic change is seen in the hips. Soft tissues: There is body wall edema with asymmetric soft tissue edema in the right leg as compared to the left. IMPRESSION: 1. The liver is cirrhotic in morphology and heterogeneous in attenuation with a TIPS catheter in plac e. 2. Abdominal ascites, splenomegaly, and a splenorenal shunt indicate portal hypertension. 3. There is inflammation around the prostate and bladder which can be potentially seen with cystitis/ prostatitis. Hyperdense material within the bladder lumen is new from previous and may represents blo od clots. Correlate with clinical findings and urinalysis. 4. Right larger than left pleural effusions with dependent consolidation. This could represent atelec tasis versus pneumonia/aspiration pneumonitis and clinical correlation will be required. 5. A subtle left lobe hepatic mass lesion is again noted. This is not well delineated without IV cont rast. 6. Colonic diverticulosis without CT evidence of acute diverticulitis. 7. Cardiomegaly with advanced coronary artery atherosclerosis. 8. Cholelithiasis. 9. Again seen are subacute/healing fractures of T12 and L2. 10. There is asymmetric soft tissue edema in the right thigh as compared to the left. If there is con cern for deep venous thrombosis this could be further assessed by ultrasound. 11. Additional findings as above. ACT 112: Negative or not required by law. Electronically signed by: Scott Yepez M.D. 05/24/2024 11:39 AM
--- NOTE | 2024-05-24 14:45 | Hospitalist Progress Note ---
Date of Service May 24, 2024 Assessment & Plan (1) Abdominal ascites: (2) LUCRETIA (acute kidney injury): Plan Patient presented with abdominal pain and distention. History of decompensated liver cirrhosis; currently on paracentesis every 2 weeks. History of cirrhosis status post TIPS. CT abdomen pelvis showed cirrhotic liver with splenomegaly and large ascites. Focal hypodense lesion in pancreatic head. Chest x-ray on admission; no acute finding Renal ultrasound showed prostatomegaly with evidence of chronic outlet obstruction. Layering hemorrhage within urinary bladder lumen Portal vein ultrasound did not show any thrombosis. Repeat CT abdomen and pelvis on May 24, 2023 do not show acute intra-abdominal findings. Inflammation seen around prostate and bladder. Status post therapeutic paracentesis with removal of 3200 cc of fluids Studies do not suggest spontaneous bacterial peritonitis. Urine culturenegative Blood culture NGTD Creatinine uptrending; baseline of 1.5. Will resume IV antibiotics; obtain urinalysis. Obtain venous duplex of bilateral lower extremities s/p 100 g of 25% albumin for possible hepatorenal syndrome on May 21 and May 22. Nephrology on board; discussed; recommend to start lasix and spironolactione Continue to monitor for hematuria. History of radiation cystitis status post cystourethroscopy with clot evacuation and fulguration. GI consulted given CT abdomen/pelvis findings; they recommend outpatient EUS for evaluation of possible pancreatic head mass. Continue lactulose enema every 8 hours Acute blood loss anemia Hematuria secondary to radiation cystitis History of prostate cancer s/p radiation complicated by radiation cystitis Recently admitted in [facility] [place] from May 08 to May 12 where he had cystourethroscopy with clot evacuation and fulguration. Presented with hematuria again; no clots seen. Renal usg as above Hemoglobin dropped down to 5.9 g/dL s/p 1 unit of packed RBCs on 05/22 Continue to monitor hematuria Chronic conditions Recurrent hepatocellular carcinoma status post IR embolization DM2 insulin requiring, well-controlled as of recent hemoglobin A1c of 5.6, January 2024 history GAVE/esophageal varices/portal hypertensive gastropathy/radiation proctitis/diverticulosis restrictive lung disease as per records/pulmonary hypertension, baseline lung status. BPH/prostate cancer status post radiation Full code DVT prophylaxis SCDs Time spent evaluating patient, direct bedside care, chart review, placing orders, interpretation of diagnostic studies, discussion with consultants, patient, and family members, as well as other required patient management activities is 50 minutes Please note the above document was generated using voice recognition software. It may contain grammatical, syntax or spelling errors. Any formal questions or concerns about the content, text or information contained within the body of this dictation should be directly addressed to the provider for clarification Admission and Anticipated Discharge Date Admission Date: May 20, 2024 Subjective Patient continues to report abdominal pain and discomfort Abdomen is distended Urine appears clear Review of Systems Review of Systems: All systems reviewed & are unremarkable except as noted in Subjective Physical Exam Physical Exam: Constitutional: WD/WN, vitals as above, NAD, sitting up in bed, pleasant, conversing easily Respiratory: normal respiratory effort, lungs clear to auscultation, no wheeze, rales, rhonchi. Normal insp/exp effort, no accessory muscle use Cardiovascular: RRR, no murmur, no edema Vessels: no JVD or carotid bruit Chest: normal inspection of chest Abdomen: distended;Tenderness on right lower quadrant.. Bowel sound present Musculoskeletal: no cyanosis or clubbing, extremities motor strength 5/5 Skin: no rashes, warm and dry normal turgor Neurologic: PERRL, EOMI, accommodation nl, no face palsy, no dysarthria CN's II- XI intact bilaterally and moves all extremities Psychiatric: A+Ox3, euthymic affect Results & Data Results & Data Vital Signs (Past 12 Hours) Vital Signs Temp Pulse Pulse Resp BP Pulse Ox O2 Del Method 05/24/24 14:19 76 05/24/24 11:37 37.3 C 72 16 178/69 H 95 Room Air 05/24/24 09:16 68 05/24/24 07:43 37.1 C 67 16 177/67 H 94 Room Air 05/24/24 07:36 Room Air 05/24/24 03:08 36.7 C 68 18 141/56 H 93 Room Air (1) Abdominal ascites Ascites type: other type Qualified Code(s): R18.8 - Other ascites
--- NOTE | 2024-05-24 15:02 | Nephrology Progress Note ---
Date of Service May 24, 2024 Assessment & Plan (1) LUCRETIA (acute kidney injury): Plan: Nonoliguric Stage 2 acute kidney injury in the setting of worsening volume overload from liver disease and requiring more frequent paracenteses recently after his diuretics were held. Ischemic ATN is likeliest dx versus prerenal but many are possible; cannot R/O HRS. Urinalysis notable for ketonuria, 3+ blood and protein with specific gravity 1026 and a pH of 5; He has 11-20 white cells per high-powered field and some leukocyte Estrace; also some amorphous sediment present. No urinary tract infection. Significance of proteinuria difficult to establish in patient with long history of radiation cystitis. Does have elevated urine sodium, also likely challenging to interpret in the setting. However lack of infection is reassuring. No obstructive process. No indication for dialysis -- still volume overloaded but chemistries acceptable>> Continue on furosemide 40 mg with 100 mg Aldactone. Continue conservative management by avoiding NSAIDs and IV contrast unless life or limb saving Daily basic metabolic panel Daily standing weight: Standing weights only ordered - limit fluids to 1.5 L and ordered low na diet - May need paracentesis again as his abdomen appears more distended today and is UOP has not improved. (2) Abdominal pain: Plan: Imaging with constipation: For lactulose enema For outpatient endoscopic ultrasound to evaluate possible pancreatic head mass (3) Acute on chronic blood loss anemia: Plan: Status post packed red cells today x 1 unit Okay to use diuretics as above. Admission and Anticipated Discharge Date Admission Date: May 20, 2024 Subjective Patient continues to report abdominal pain and discomfort Abdomen is distended Review of Systems 2 Review of Systems: Comfortable, Grossly distended abdomen ,but non tender Physical Exam 2 Physical Exam: GENERAL APPEARANCE: calm gentleman no acute distress. HEENT: NC, AT. MMM. EOMI, clear conjunctiva, oropharynx clear. NECK: Supple without lymphadenopathy. No stiffness or restricted ROM. HEART: Normal rate and regular rhythm, normal S1/S1, no m/r/g LUNGS: CTAB, moving air well. No crackles or wheezes are heard. ABDOMEN: Soft, nontender, Grossly distended EXTREMITIES: bilateral 1+ pitting edema NEUROLOGICAL: Grossly nonfocal. Alert and oriented, moving all 4 extremities. Results & Data Vital Signs (Past 12 Hours) Vital Signs Temp Pulse Pulse Resp BP Pulse Ox O2 Del Method 05/24/24 14:19 76 05/24/24 11:37 37.3 C 72 16 178/69 H 95 Room Air 05/24/24 09:16 68 05/24/24 07:43 37.1 C 67 16 177/67 H 94 Room Air 05/24/24 07:36 Room Air 05/24/24 03:08 36.7 C 68 18 141/56 H 93 Room Air Laboratory Results 05/24/24 06:36 05/24/24 06:36
[2024-05-25 00:07] LABS: Appearance Urine Turbid (Clear); Bilirubin Urine Negative (Negative); Blood Urine 3+ (Negative); Color Urine Dark Yellow; Epithelial Cell Urine Auto 0-2 /hpf (0-2); Glucose Urine UA Negative (Negative); Ketones Urine Trace (Negative); Leukocyte Esterase Urine 2+ (Negative); Nitrite Urine Negative (Negative); Protein Urine 3+ (Negative); RBC Urine Automated >20 /hpf (0-2); Specific Gravity Urine 1.026 (1.000-1.030); Urobilinogen Urine Negative (Negative); WBC Urine Automated >50 /hpf (0-5); pH Urine 5.5 (4.5-7.5)
[2024-05-25 00:34] LABS: Bacteria Urine Automated 2+ (None Seen); Granular Casts Urine P /lpf (None Prsent)
--- NOTE | 2024-05-25 01:51 | Ultrasound Report ---
Exam(s): US VENOUS BILATERAL LOWER EXTREMITIES EXAM: US Duplex Bilateral Lower Extremities Veins CLINICAL HISTORY: Reason for exam: Rule out DVT. TECHNIQUE: Real-time duplex ultrasound scan of the bilateral lower extremity veins integrating B-mode two-dimensional vascular structure, Doppler spectral analysis, color flow Doppler imaging and compression. COMPARISON: No relevant prior studies available. FINDINGS: Right deep veins: Unremarkable. No DVT in the right common femoral, femoral, proximal deep femoral or popliteal veins. The veins demonstrate normal color flow, are normally compressible, with normal phasic flow and/or augmentation response. Right superficial veins: Unremarkable. No thrombus in the visualized right great saphenous vein. Left deep veins: Unremarkable. No DVT in the left common femoral, femoral, proximal deep femoral or popliteal veins. The veins demonstrate normal color flow, are normally compressible, with normal phasic flow and/or augmentation response. Left superficial veins: Unremarkable. No thrombus in the visualized left great saphenous vein. Soft tissues: No acute findings. No popliteal cyst. IMPRESSION: Negative bilateral lower extremity duplex venous ultrasound. No evidence of DVT. Electronically signed by: Jonny Fitzpatrick MD 05/25/24 01:50 AM
[2024-05-25 06:38] LABS: Basophils # (auto) 0.01 K/uL (0.00-0.20); Basophils % (auto) 0.2 %; Eosinophils # (auto) 0.34 K/uL (0.00-0.50); Eosinophils % (auto) 6.6 %; Hematocrit (blood only) 24.1 % (42.0-52.0); Hemoglobin 7.9 g/dl (14.0-18.0); Immature Granulocytes # (auto) 0.04 K/uL (0.01-0.20); Immature Granulocytes % (auto) 0.8 %; Lymphocytes # (auto) 0.63 K/uL (1.20-3.40); Lymphocytes % (auto) 12.2 %; Mean Corpuscular Hemoglobin 32.2 pg (25.0-34.0); Mean Corpuscular Hgb Conc 32.8 g/dL (32.0-36.0); Mean Corpuscular Volume 98.4 fL (80.0-100.0); Mean Platelet Volume 12.3 fL (9.4-12.4); Monocytes # (auto) 0.34 K/uL (0.11-0.59); Monocytes % (auto) 6.6 %; Neutrophils # (auto) 3.79 K/uL (1.40-6.50); Neutrophils % (auto) 73.6 %; Platelet Count 78 K/uL (130-400); RDW Coefficient of Variation 19.3 % (11.5-14.5); RDW Standard Deviation 68.5 fL (36.4-46.3); Red Blood Count 2.45 M/uL (4.70-6.10); White Blood Count 5.15 K/ul (4.8-10.8)
[2024-05-25 07:20] LABS: Polychromasia 1+; Tear Drop Cells 1+
[2024-05-25 08:05] LABS: BUN Creatinine Ratio 13.4 (10-20); Calcium 7.9 mg/dl (8.6-10.3); Creatinine Clr Calc Pharmacy 24.2 ml/min; Est GFR (Non-African American) 21.5 ml/min; Potassium 4.3 mmol/L (3.5-5.1)
--- NOTE | 2024-05-25 09:06 | Nephrology Progress Note ---
Date of Service May 25, 2024 Assessment & Plan (1) LUCRETIA (acute kidney injury): Plan: slowly worsening Nonoliguric Stage 2 acute kidney injury in the setting of worsening volume overload from liver disease and requiring more frequent paracenteses recently after his diuretics were held. baseline creatinine 1.2- 1.3. Ischemic ATN is likeliest dx versus prerenal but many are possible; cannot R/O HRS. Urinalysis notable for ketonuria, 3+ blood and protein with specific gravity 1026 and a pH of 5; He has 11-20 white cells per high-powered field and some leukocyte Estrace; also some amorphous sediment present. Repeat UA present if I read lab report correctly w/ granular casts, supporting ATN. No urinary tract infection. Significance of proteinuria difficult to establish in patient with long history of radiation cystitis. Does have elevated urine sodium, also likely challenging to interpret in the setting. However lack of infection is reassuring. No obstructive process. No indication for dialysis -- still volume overloaded but chemistries acceptable>> and I explained to him today for about 15 minutes that he's not a candidate for dialysis should the need arise given liver issues and that he's not a liver txplt candidate; he was surprised to hear this; has thought a lot about end of life planning but did aska bout hospice. recommend goals of care discussion w/ pt and family w/ palliative >> revewied w/ Dr Sheppard who's in agreement. Continue on furosemide 40 mg with 100 mg Aldactone >> had doses this am and on hold for tomorrow b/c of planned paracentesis; UOP has dropped as BM have picked up Continue conservative management by avoiding NSAIDs and IV contrast unless life or limb saving Daily basic metabolic panel Daily standing weight: Standing weights only ordered - limit fluids to 1.5 L and ordered low na diet - May need paracentesis 1-2 times weekly moving forward care coordinated w/ dr Sheppard regarding goals of care, dialysis candidacy, paracentesis planning as IP and OP, diuretic doses; we are in agreemetnt (2) Abdominal pain: Plan: constipation improved For outpatient endoscopic ultrasound to evaluate possible pancreatic head mass (3) Acute on chronic blood loss anemia: Plan: s/p pRBC this admission; hgb stable today Okay to use diuretics as above. Admission and Anticipated Discharge Date Admission Date: May 20, 2024 Subjective seen on midday rounds. pt asking about paracentesis and increased dependence on this and renal function and diuretics and possible need in near future for dialysis. ongoing abd pain and increasing abd girth and for possible paracentesis in am; not sob, edema better Review of Systems 2 Review of Systems: All systems reviewed & are unremarkable except as noted in Subjective Physical Exam 2 Constitutional: well developed, + frail appearing and cooperative; no acute distress Eyes: EOM intact bilaterally ENMT: Ears: no external ear abnormality Nose: no external nose abnormality Mouth: + dry oral mucous membranes Neck: no nuchal rigidity Respiratory: normal respiratory effort Auscultation: + diminished lung sounds Cardiovascular: Rate/Rhythm: regular rate and regular rhythm Extremities: + edema (1+ bilateral lower extremities to the knees) Gastrointestinal (Abdomen): Inspection/Auscultation: normal bowel sounds P ercussion/Palpation: + abdomen tender (Nontender except focally left lower quadrant without guarding or rebound), abdomen soft and + ascites Musculoskeletal: Extremities: strength 5/5 throughout Skin: no rashes, warm and dry + jaundice (Slight) Psychiatric: Orientation: alert and oriented x 3 Results & Data Vital Signs (Past 12 Hours) Vital Signs Temp Pulse Pulse Resp BP Pulse Ox O2 Del Method 05/25/24 07:51 36.7 C 65 20 146/68 H 97 Room Air 05/25/24 07:26 65 05/25/24 07:17 Room Air 05/25/24 03:03 36.9 C 68 16 115/55 L 94 Room Air 05/24/24 23:12 37.1 C 76 16 119/57 L 94 Room Air 05/24/24 21:54 78 Laboratory Results 05/25/24 05:37 05/25/24 05:37
--- NOTE | 2024-05-25 11:29 | Gastroenterology Progress Note ---
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 Imaging with constipation, moving bowels now Rising TABLEMAN, drop in HGB w/o evidence of GI bleeding - CKD - Rising TABLEMAN to 2.77 - Nephrology following - urine sodium 40 - Albumin held, diuretics restarted - Ascites - No SBP on fluid studies - May repeat therapeutic paracentesis as needed - Continue lactulose - Continue Xifaxan - May add Miralax 1 capful daily - MELD labs every 6 months - ABD imaging w/ AFP every 6 months - EGD every 1-2 years - No ETOH - No NSAIDs - Avoid hepatotoxin - Low NA diet, less than 2G daily - Less than 2G acetaminophen containing products daily - Defer management of pancreatic lesion to his primary OP GI provider, EUS recommended if not previously completed - Recommend ongoing goals of care conversation - ED for emergencies - Please call with any questions or concerns Thank you for allowing us to participate in the care of this patient. Please call with any acute changes, questions or concerns. Please see addendum below with additional recommendation from my supervising physician. I spent a total of 55 minutes on the date of service in review of patient's record, and previously obtained information in person and appropriate medical visit, discussion and education of plan, with patient and/or caregiver, placing orders for tests/referral/procedures as medically necessary and documentation of pertinent clinical information in patient's medical records for their visit today. Admission and Anticipated Discharge Date Admission Date: May 20, 2024 Supervising Physician Co-Signing Physician Notes I examined the patient and reviewed patient's chart , laboratory data and imaging studies. I agree with with assessment and plan of care as suggested by advanced practice provider. The patient is contemplating palliative measures. Subjective Pt was seen and evaluated, chart reviewed. Notes he felt somewhat better after moving his stools. No black or bloody BMs reported. Nephrology on board. Rising TABLEMAN, suspect ischemic ATN. Diuretics were restarted. Albumin currently not ordered. MELD 30 Review of Systems Review of Systems: All other findings negative except as noted in HPI. Physical Exam Constitutional: WD/WN, vitals as above Respiratory: normal respiratory effort Cardiovascular: Rate/Rhythm: regular rate and regular rhythm Gastrointestinal (Abdomen): Inspection/Auscultation: normal bowel sounds Percussion/Palpation: abdomen soft; abdomen nontender, no guarding and abdomen not rigid Skin: no rashes, warm and dry Results & Data Results & Data Vital Signs (Past 12 Hours) Vital Signs Temp Pulse Pulse Resp BP Pulse Ox O2 Del Method 05/25/24 07:51 36.7 C 65 20 146/68 H 97 Room Air 05/25/24 07:26 65 05/25/24 07:17 Room Air 05/25/24 03:03 36.9 C 68 16 115/55 L 94 Room Air Laboratory Results 05/25/24 05/25/24 05/24/24 Range/Units 08:01 05:37 23:40 WBC 5.15 (4.8-10.8) K/ul RBC 2.45 L (4.70-6.10) M/uL Hgb 7.9 L (14.0-18.0) g/dl Hct 24.1 L (42.0-52.0) % MCV 98.4 (80.0-100.0) fL MCH 32.2 (25.0-34.0) pg MCHC 32.8 (32.0-36.0) g/dL RDW Std Deviation 68.5 H (36.4-46.3) fL RDW Coeff of Violetta 19.3 H (11.5-14.5) % Plt Count 78 L (130-400) K/uL MPV 12.3 (9.4-12.4) fL Immature Gran % (Auto) 0.8 % Neut % (Auto) 73.6 % Lymph % (Auto) 12.2 % Camden % (Auto) 6.6 % Eos % (Auto) 6.6 % Baso % (Auto) 0.2 % Neut # (Auto) 3.79 (1.40-6.50) K/uL Lymph # (Auto) 0.63 L (1.20-3.40) K/uL Camden # (Auto) 0.34 (0.11-0.59) K/uL Eos # (Auto) 0.34 (0.00-0.50) K/uL Baso # (Auto) 0.01 (0.00-0.20) K/uL Immature Gran # (Auto) 0.04 (0.01-0.20) K/uL Polychromasia 1+ Tear Drop Cells 1+ Sodium 140 (136-145) mmol/L Potassium 4.3 (3.5-5.1) mmol/L Chloride 110 H (98-107) mmol/L Carbon Dioxide 23 (21-32) mmol/L Anion Gap 7 (3-11) BUN 37 H (6-23) mg/dl Creatinine 2.77 H (0.6-1.4) mg/dl Est Cr Clr Drug Dosing 24.2 ml/min Est GFR ( Amer) 25.0 ml/min Est GFR (Non-Af Amer) 21.5 ml/min BUN/Creatinine Ratio 13.4 (10-20) Glucose 134 H (70-99(Fasting)) mg/dl POC Glucose 136 H (70-99) mg/dl Calcium 7.9 L (8.6-10.3) mg/dl Urine Color Dark Yellow Urine Appearance Turbid A (Clear) Urine pH 5.5 (4.5-7.5) Ur Specific Victor 1.026 (1.000-1.030) Urine Protein 3+ H (Negative) Urine Glucose (UA) Negative (Negative) Urine Ketones Trace H (Negative) Urine Blood 3+ H (Negative) Urine Nitrite Negative (Negative) Urine Bilirubin Negative (Negative) Urine Urobilinogen Negative (Negative) Ur Leukocyte Esterase 2+ H (Negative) Urine WBC (Auto) >50 H (0-5) /hpf Urine RBC (Auto) >20 H (0-2) /hpf U Hyaline Cast (Auto) 3-5 H (0-2) /lpf U Epithel Cells (Auto) 0-2 (0-2) /hpf Urine Bacteria (Auto) 2+ H (None Seen) Granular Casts P (None Prsent) /lpf 05/24/24 05/24/24 05/24/24 Range/Units 20:12 17:10 12:11 WBC (4.8-10.8) K/ul RBC (4.70-6.10) M/uL Hgb (14.0-18.0) g/dl Hct (42.0-52.0) % MCV (80.0-100.0) fL MCH (25.0-34.0) pg MCHC (32.0-36.0) g/dL RDW Std Deviation (36.4-46.3) fL RDW Coeff of Violetta (11.5-14.5) % Plt Count (130-400) K/uL MPV (9.4-12.4) fL Immature Gran % (Auto) % Neut % (Auto) % Lymph % (Auto) % [place] % (Auto) % Eos % (Auto) % Baso % (Auto) % Neut # (Auto) (1.40-6.50) K/uL Lymph # (Auto) (1.20-3.40) K/uL Camden # (Auto) (0.11-0.59) K/uL Eos # (Auto) (0.00-0.50) K/uL Baso # (Auto) (0.00-0.20) K/uL Immature Gran # (Auto) (0.01-0.20) K/uL Polychromasia Tear Drop Cells Sodium (136-145) mmol/L Potassium (3.5-5.1) mmol/L Chloride (98-107) mmol/L Carbon Dioxide (21-32) mmol/L Anion Gap (3-11) BUN (6-23) mg/dl Creatinine (0.6-1.4) mg/dl Est Cr Clr Drug Dosing ml/min Est GFR ( Amer) ml/min Est GFR (Non-Af Amer) ml/min BUN/Creatinine Ratio (10-20) Glucose (70-99(Fasting)) mg/dl POC Glucose 186 H 145 H 159 H (70-99) mg/dl Calcium (8.6-10.3) mg/dl Urine Color Urine Appearance (Clear) Urine pH (4.5-7.5) Ur Specific Victor (1.000-1.030) Urine Protein (Negative) Urine Glucose (UA) (Negative) Urine Ketones (Negative) Urine Blood (Negative) Urine Nitrite (Negative) Urine Bilirubin (Negative) Urine Urobilinogen (Negative) Ur Leukocyte Esterase (Negative) Urine WBC (Auto) (0-5) /hpf Urine RBC (Auto) (0-2) /hpf U Hyaline Cast (Auto) (0-2) /lpf U Epithel Cells (Auto) (0-2) /hpf Urine Bacteria (Auto) (None Seen) Granular Casts (None Prsent) /lpf PG Care Time/CCT Total # of Minutes Spent Total Time Spent with Patient: Total time spent is greater than 50% in coordination of care (as documented) at patient's floor/unit and/or counseling patient: Coding Level of Care Code 34765 SUB INP/OBS CARE 3/50MIN Diagnoses Other ascites R18.8 Ascites type: other type (1) Abdominal ascites Ascites type: other type Qualified Code(s): R18.8 - Other ascites
--- NOTE | 2024-05-25 12:46 | Hospitalist Progress Note ---
Date of Service May 25, 2024 Assessment & Plan (1) Abdominal ascites: (2) LUCRETIA (acute kidney injury): Plan Patient presented with abdominal pain and distention. History of decompensated liver cirrhosis; currently on paracentesis every 2 weeks. History of cirrhosis status post TIPS. CT abdomen pelvis showed cirrhotic liver with splenomegaly and large ascites. Focal hypodense lesion in pancreatic head. Chest x-ray on admission; no acute finding Renal ultrasound showed prostatomegaly with evidence of chronic outlet obstruction. Layering hemorrhage within urinary bladder lumen Portal vein ultrasound did not show any thrombosis. Repeat CT abdomen and pelvis on May 24, 2023 do not show acute intra-abdominal findings. Inflammation seen around prostate and bladder. Status post therapeutic paracentesis with removal of 3200 cc of fluids on 05/20/2023 Studies do not suggest spontaneous bacterial peritonitis. Urine culturenegative Blood culture NGTD Repeat urinalysis on May 24 suggestive of UTI Creatinine uptrending; baseline of 1.5. Continue IV antibiotics; follow-up on urine and blood culture s/p 100 g of 25% albumin for possible hepatorenal syndrome on May 21 and May 22. Nephrology on board; discussed; recommend to start lasix and spironolactione. on hold for paracentesis tomorrow am Continue to monitor for hematuria. History of radiation cystitis status post cystourethroscopy with clot evacuation and fulguration. GI consulted given CT abdomen/pelvis findings; they recommend outpatient EUS for evaluation of possible pancreatic head mass. Continue lactulose enema every 8 hours Acute blood loss anemia Hematuria secondary to radiation cystitis Possible UTI History of prostate cancer s/p radiation complicated by radiation cystitis [place] [facility] [place] 12 where he had cystourethroscopy with clot evacuation and fulguration. Presented with hematuria again; no clots seen. Renal usg as above Hemoglobin dropped down to 5.9 g/dL s/p 1 unit of packed RBCs on 05/22 Continue to monitor hematuria Chronic conditions Recurrent hepatocellular carcinoma status post IR embolization DM2 insulin requiring, well-controlled as of recent hemoglobin A1c of 5.6, January 2024 history GAVE/esophageal varices/portal hypertensive gastropathy/radiation proctitis/diverticulosis restrictive lung disease as per records/pulmonary hypertension, baseline lung status. BPH/prostate cancer status post radiation Full code DVT prophylaxis SCDs Time spent evaluating patient, direct bedside care, chart review, placing orders, interpretation of diagnostic studies, discussion with consultants, patient, and family members, as well as other required patient management activities is 50 minutes Please note the above document was generated using voice recognition software. It may contain grammatical, syntax or spelling errors. Any formal questions or concerns about the content, text or information contained within the body of this dictation should be directly addressed to the provider for clarification Admission and Anticipated Discharge Date Admission Date: May 20, 2024 Subjective Patient seen and examined at bedside. He reports that his abdomen pain has improved compared to yesterday Denies fever or chills No significant events overnight Review of Systems Review of Systems: All systems reviewed & are unremarkable except as noted in Subjective Physical Exam Physical Exam: Constitutional: WD/WN, vitals as above, NAD, sitting up in bed, pleasant, conversing easily Respiratory: normal respiratory effort, lungs clear to auscultation, no wheeze, rales, rhonchi. Normal insp/exp effort, no accessory muscle use Cardiovascular: RRR, no murmur, no edema Vessels: no JVD or carotid bruit Chest: normal inspection of chest Abdomen: distended; Tenderness in right lower quadrant improved. Bowel sound present Musculoskeletal: no cyanosis or clubbing, extremities motor strength 5/5 Skin: no rashes, warm and dry normal turgor Neurologic: PERRL, EOMI, accommodation nl, no face palsy, no dysarthria CN's II- XI intact bilaterally and moves all extremities Psychiatric: A+Ox3, euthymic affect Results & Data Results & Data Vital Signs (Past 12 Hours) Vital Signs Temp Pulse Pulse Resp BP Pulse Ox O2 Del Method 05/25/24 11:50 36.8 C 67 20 150/70 H 96 Room Air 05/25/24 07:51 36.7 C 65 20 146/68 H 97 Room Air 05/25/24 07:26 65 05/25/24 07:17 Room Air 05/25/24 03:03 36.9 C 68 16 115/55 L 94 Room Air (1) Abdominal ascites Ascites type: other type Qualified Code(s): R18.8 - Other ascites
[2024-05-26] MEDS: ALBUMIN 25% 25 GM/100 ML VIAL IV SCH (06:13)
[2024-05-26 07:03] LABS: BUN Creatinine Ratio 17.6 (10-20); Calcium 7.9 mg/dl (8.6-10.3); Creatinine Clr Calc Pharmacy 29.5 ml/min; Est GFR (African American) 31.8 ml/min; Est GFR (Non-African American) 27.4 ml/min; Potassium 4.6 mmol/L (3.5-5.1)
[2024-05-26] MEDS ORDERED: Nursing to Pharmacy Communication SCH (09:30)
--- NOTE | 2024-05-26 14:01 | Nephrology Progress Note ---
Date of Service May 26, 2024 Assessment & Plan (1) LUCRETIA (acute kidney injury): Plan: today improved Nonoliguric Stage 2 acute kidney injury in the setting of worsening volume overload from liver disease and requiring more frequent paracenteses recently after his diuretics were held. baseline creatinine 1.2- 1.3. Ischemic ATN is likeliest dx versus prerenal but many are possible; cannot R/O HRS. Urinalysis notable for ketonuria, 3+ blood and protein with specific gravity 1026 and a pH of 5; He has 11-20 white cells per high-powered field and some leukocyte Estrace; also some amorphous sediment present. Repeat UA present if I read lab report correctly w/ granular casts, supporting ATN. No urinary tract infection. Significance of proteinuria difficult to establish in patient with long history of radiation cystitis. Does have elevated urine sodium, also likely challenging to interpret in the setting. However lack of infection is reassuring. No obstructive process. No indication for dialysis -- still volume overloaded but chemistries acceptable>> and I explained to him today for about 15 minutes that he's not a candidate for dialysis should the need arise given liver issues and that he's not a liver txplt candidate; he was surprised to hear this; has thought a lot about end of life planning but did aska bout hospice. -recommend goals of care discussion w/ pt and family w/ palliative Continue on furosemide 40 mg with 100 mg Aldactone >> on hold b/c of planned paracentesis Continue conservative management by avoiding NSAIDs and IV contrast unless life or limb saving Daily basic metabolic panel Daily standing weight: Standing weights only ordered - cont to limit fluids to 1.5 L and low na diet - May need paracentesis 1-2 times weekly moving forward (2) Abdominal pain: Plan: constipation improved For outpatient endoscopic ultrasound to evaluate possible pancreatic head mass (3) Acute on chronic blood loss anemia: Plan: s/p pRBC this admission; hgb stable today Okay to use diuretics as above. Admission and Anticipated Discharge Date Admission Date: May 20, 2024 Subjective no paracentesis yet Physical Exam 2 Constitutional: well developed, + frail appearing and cooperative; no acute distress Eyes: EOM intact bilaterally ENMT: Ears: no external ear abnormality Nose: no external nose abnormality Mouth: + dry oral mucous membranes Neck: no nuchal rigidity Respiratory: normal respiratory effort Auscultation: + diminished lung sounds Cardiovascular: Rate/Rhythm: regular rate and regular rhythm Extremities: + edema (1+ bilateral lower extremities to the knees) Gastrointestinal (Abdomen): Inspection/Auscultation: normal bowel sounds P ercussion/Palpation: + abdomen tender (Nontender except focally left lower quadrant without guarding or rebound), abdomen soft and + ascites Musculoskeletal: Extremities: strength 5/5 throughout Skin: no rashes, warm and dry + jaundice (Slight) Psychiatric: Orientation: alert and oriented x 3 Results & Data Vital Signs (Past 12 Hours) Vital Signs Temp Pulse Pulse Resp BP Pulse Ox O2 Del Method 05/26/24 11:51 36.7 C 70 17 139/63 94 Room Air 05/26/24 11:00 Room Air 05/26/24 07:49 70 05/26/24 07:41 37.1 C 67 18 124/60 97 Room Air 05/26/24 03:58 37.1 C 74 16 130/60 93 Room Air Laboratory Results 05/25/24 05:37 05/26/24 05:47
--- NOTE | 2024-05-26 14:46 | Ultrasound Report ---
ULTRASOUND-GUIDED PARACENTESIS CLINICAL HISTORY: Ascites PROCEDURE: Procedure and risks were explained. Informed consent was obtained. A final timeout was com pleted. The abdomen was prepped and draped in sterile fashion. 1% lidocaine was utilized for skin ane sthesia. Utilizing ultrasound guidance, a 5 Spanish safety centesis catheter was advanced into the right lower quadrant pocket of ascites. Ultrasound images were obtained. A total of 3.6 L of ascites fluid was re moved and discarded. The catheter was removed and Band-Aid applied. The patient tolerated the procedu re well. Vital signs will be monitored postprocedure. IMPRESSION: Ultrasound-guided paracentesis as above. Performed, dictated, and signed by Luis Ellis PA-C; to be co-signed by Dr. Elan Alexander. Electronically signed by: Elan Alexander M.D. 05/26/2024 3:26 PM
--- NOTE | 2024-05-26 15:08 | Hospitalist Progress Note ---
Date of Service May 26, 2024 Assessment & Plan (1) Abdominal ascites: (2) LUCRETIA (acute kidney injury): Plan Patient presented with abdominal pain and distention. History of decompensated liver cirrhosis; currently on paracentesis every 2 weeks. History of cirrhosis status post TIPS. CT abdomen pelvis showed cirrhotic liver with splenomegaly and large ascites. Focal hypodense lesion in pancreatic head. Chest x-ray on admission; no acute finding Renal ultrasound showed prostatomegaly with evidence of chronic outlet obstruction. Layering hemorrhage within urinary bladder lumen Portal vein ultrasound did not show any thrombosis. Repeat CT abdomen and pelvis on May 24, 2023 do not show acute intra-abdominal findings. Inflammation seen around prostate and bladder. Status post therapeutic paracentesis with removal of 3200 cc of fluids on 05/20/2024 and 3500 on 05/26/2024 Studies do not suggest spontaneous bacterial peritonitis. Urine culturenegative Blood culture NGTD Repeat urinalysis on May 24 suggestive of UTI Up trended to 2.7 and currently downtrending; baseline of 1.5 Continue IV antibiotics With Zosyn ; DC antiboitics if Blood culture is negative for 48 hours s/p 100 g of 25% albumin for possible hepatorenal syndrome on May 21 and May 22. Nephrology on board; discussed; recommend to start lasix and spironolactione, on hold for paracentesis for now. Repeat Renal function tomorrow; plan to resume if renal function is stable Continue to monitor for hematuria. History of radiation cystitis status post cystourethroscopy with clot evacuation and fulguration. GI consulted given CT abdomen/pelvis findings; they recommend outpatient EUS for evaluation of possible pancreatic head mass. Continue lactulose Acute blood loss anemia Hematuria secondary to radiation cystitis Possible UTI History of prostate cancer s/p radiation complicated by radiation cystitis [place] [facility] [place] 12 where he had cystourethroscopy with clot evacuation and fulguration. Presented with hematuria again; no clots seen. Renal usg as above Hemoglobin dropped down to 5.9 g/dL s/p 1 unit of packed RBCs on 05/22 Continue to monitor hematuria Chronic conditions Recurrent hepatocellular carcinoma status post IR embolization DM2 insulin requiring, well-controlled as of recent hemoglobin A1c of 5.6, January 2024 history GAVE/esophageal varices/portal hypertensive gastropathy/radiation proctitis/diverticulosis restrictive lung disease as per records/pulmonary hypertension, baseline lung status. BPH/prostate cancer status post radiation Palliative consulted for goals of care discussion. Patient to follow-up with outpatient palliative care after discharge Full code DVT prophylaxis SCDs Time spent evaluating patient, direct bedside care, chart review, placing orders, interpretation of diagnostic studies, discussion with consultants, patient, and family members, as well as other required patient management activities is 50 minutes Please note the above document was generated using voice recognition software. It may contain grammatical, syntax or spelling errors. Any formal questions or concerns about the content, text or information contained within the body of this dictation should be directly addressed to the provider for clarification Admission and Anticipated Discharge Date Admission Date: May 20, 2024 Subjective Patient seen and examined at bedside. He reports that he is feeling much better. Abdominal pain has resolved No significant event overnight Review of Systems Review of Systems: All systems reviewed & are unremarkable except as noted in Subjective Physical Exam Physical Exam: Constitutional: WD/WN, vitals as above, NAD, sitting up in bed, pleasant, conversing easily Respiratory: normal respiratory effort, lungs clear to auscultation, no wheeze, rales, rhonchi. Normal insp/exp effort, no accessory muscle use Cardiovascular: RRR, no murmur, no edema Vessels: no JVD or carotid bruit Chest: normal inspection of chest Abdomen: distended; Tenderness in right lower quadrant improved. Bowel sound present Musculoskeletal: no cyanosis or clubbing, extremities motor strength 5/5 Skin: no rashes, warm and dry normal turgor Neurologic: PERRL, EOMI, accommodation nl, no face palsy, no dysarthria CN's II- XI intact bilaterally and moves all extremities Psychiatric: A+Ox3, euthymic affect Results & Data Results & Data Vital Signs (Past 12 Hours) Vital Signs Temp Pulse Pulse Resp BP Pulse Ox O2 Del Method 05/26/24 11:51 36.7 C 70 17 139/63 94 Room Air 05/26/24 11:00 Room Air 05/26/24 07:49 70 05/26/24 07:41 37.1 C 67 18 124/60 97 Room Air 05/26/24 03:58 37.1 C 74 16 130/60 93 Room Air (1) Abdominal ascites Ascites type: other type Qualified Code(s): R18.8 - Other ascites
--- NOTE | 2024-05-26 23:09 | Palliative Care Consultation ---
Date of Consultation May 26, 2024 Assessment & Plan (1) Abdominal pain, generalized: (2) Advanced care planning/counseling discussion: 45-minute detailed and lengthy [id number]-[id number] advance care planning meeting was held with patient at the bedside. There were no family present. He states that he has already made arrangements with advanced illness planning as far as selecting his son to be his surrogate decision maker completing advanced directive paperwork as well as power of contract attorney paperwork. His son is his power of contract attorney and reports that his son handles all of his financial and legal issues. Patient resides at home with his who also has some medical issues and is not able to necessarily provide a lot of hands-on care for him. He considers himself fortunate that his family is able to help support his needs with continued caregiving. He states that he mostly worries about what is the hayley he is leaving on the world when he dies. He is less concerned about dying itself and notes that he has made peace with his mortality and has had several yannick discussions with his family about what his wishes and preferences were to be as his illness progresses. He is very clear he does not wish to be placed on machines or have things like CPR and life support. He reaffirms a code select ion of DNR/DNI. He also indicates that he wants to be able to stay at home until the end of his life and would be willing to accept hospice when it is necessary although we discussed that at this time he does not necessarily appear to be hospice appropriate and additional interventions are planned at [facility] including another IR assisted embolization of his hepatocellular carcinoma. Visiting nurse services may offer some additional support and ongoing medication management oversight, home lab and home health aide support should he feel those things are needed. He is going to think about this a little bit more. We discussed his excess tensional distress and suffering that he has been experiencing about the worry he has upon impact he leaves on the world when he dies. 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 He acknowledges that this was hurtful specially that he given over a decade of his life in service to the organization as their president and chief executive officer. We talked about legacy planning projects and legacy review was conducted. We will begin some additional Legacy project work in our outpatient setting and ongoing discussions. I encouraged him to continue the o pen dialogue he has with his family and also suggested that perhaps he think about how he wants to leave some legacy behind i.e. written word, video logs, emails etc. He was appreciative of the time we spent together and thankful for the discussion. All questions were answered to his apparent satisfaction. (3) Palliative care by specialist: Discussed Palliative Medicine provides specialized medical care for patients with a serious illness. We offer a focus on quality of life through reduction of symptom burden/more control over their illness, for patients and their family. Palliative Medicine interventions can be given along with curative treatment. I specifically clarified we are not hospice, which is a visiting nurse service that focuses on care delivered at the very end of life. Plan As noted above CODE STATUS changed to DNR/DNI He will follow-up in outpatient palliative medicine clinic, we will schedule this appointment with him upon discharge Thank you for allowing us to participate in the ongoing care of this patient. Please page with any additional concerns. Alicia Oneal DNP Director, Palliative Medicine History of Present Illness Reason for Consultation: Liver failure, goals of care Attending Physician: Marcus Sheppard MD History of Present Illness Admitted 05/20/2024 with hepatorenal failure and worsening ascites with abdominal pain and distention. He has decompensated liver cirrhosis. He currently requires paracentesis on a regular basis, averaging about every 2 weeks. He is followed by the [facility] liver failure program. Patient notes that he has had worsening liver failure for some time and was previously evaluated by [facility] for liver transplant. He was initially listed for liver transplant and recently advised that he has been delisted and is no longer a candidate for liver transplantation. He presented with a painful ascites with a concern for SBP and was noted to fortunately not be septic. His medical history includes nonalcoholic fatty liver disease, cirrhosis, status post TIPS and revision through [facility]. He has recurrent ascites and has been on home diuretic therapy currently on hold. He also has a history of recurrent hepatocellular carcinoma which is status post IR embolization and a history of portal vein thrombosis that is managed at [facility]. Additional medical history includes diabetes, hypertension, GAVE/esophageal varices, portal hypertensive gastropathy, restrictive lung disease, radiation proctitis, diverticulitis, pulmonary hypertension, BPH, prostate cancer status postradiation, chronic renal insufficiency. Allergies Allergy/AdvReac Type Severity Reaction Status Date / Time No Known Allergies Allergy Mild Verified 05/15/24 14:57 Home Medications Medication Instructions Recorded Confirmed Type allopurinol 100 mg tablet 200 mg PO QAM 05/16/20 05/20/24 History Lactobacil.acidophilus-Bifido.animalis 1 cap PO QAM 05/17/23 05/20/24 History 5 billion cell sprinkle capsule (Probiotic) ferrous sulfate 325 mg (65 mg 650 mg PO QAM 05/17/23 05/20/24 History iron) tablet (iron) cdyulbrerqpi-lmp-uewhv acid-vit 1 tab PO DAILY 05/17/23 05/20/24 History K-lycop 400 mcg-20 mcg-370 mcg tablet (Men's 50 Plus Multivitamin) duloxetine 30 mg capsule,delayed 30 mg PO QAM 02/02/24 05/20/24 History release pantoprazole 40 mg tablet,delayed 40 mg PO AMPM 02/02/24 05/20/24 History release rifaximin 550 mg tablet (Xifaxan) 550 mg PO AMHS 02/02/24 05/15/24 History metoclopramide HCl 5 mg tablet 5 mg PO TID PRN Nausea And Vomiting 02/20/24 05/20/24 History acetaminophen 500 mg tablet 1,000 mg PO BID PRN Pain 03/19/24 05/20/24 History finasteride 5 mg tablet 5 mg PO QAM 03/20/24 05/20/24 History lactulose 10 gram oral packet 10 g PO BID PRN . 03/20/24 05/20/24 History (Kristalose) mirtazapine 30 mg tablet 30 mg PO HS 03/20/24 05/20/24 History potassium chloride 20 mEq 20 meq PO DAILY 03/20/24 05/20/24 History tablet,extended release(part/cryst) acetylcysteine 600 mg capsule 600 mg PO DAILY 05/03/24 05/20/24 History albumin, human 25 % See Rx Instructions .Route .COMPLEX 05/20/24 05/20/24 History cholestyramine (with sugar) 4 gram 1 ea PO BID 05/20/24 05/20/24 History powder for susp in a packet insulin glargine 100 unit/mL (3 unit subcut 05/20/24 History mL) subcutaneous pen (Lantus Solostar U-100 Insulin) magnesium chloride 64 mg 64 mg PO DAILY 05/20/24 05/20/24 History (magnesium chloride) tablet,delayed release (Mag 64) oxybutynin chloride 5 mg tablet 5 mg TID PRN Bladder Spasms 05/20/24 05/20/24 History solifenacin 5 mg tablet 5 mg PO DAILY 05/20/24 05/20/24 History triamcinolone acetonide 0.1 % applic topical 05/20/24 History topical cream zinc 50 mg PO DAILY 05/20/24 05/20/24 History Patient History Medical History CKD (chronic kidney disease) stage 3, GFR 30-59 ml/min Thrombocytopenia DM type 2 (diabetes mellitus, type 2) Hx of malignant neoplasm of prostate History of blood transfusion 11/2022 Hepatocellular carcinoma Spinal fracture of T12 vertebra History of recent hospitalization 06/2023 [facility] hepatic encephalopathy Liver spots Under surveillance, stable per patient Anxiety and depression 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 Anemia of chronic disease under surveillance History of panic attacks Gout No current issues GERD (gastroesophageal reflux disease) GAVE (gastric antral vascular ectasia) Hypertension Hx Esophageal varices EGD 05/22/23 ([facility]): Grade 1 varices in distal esophagus without high risk stigmata Upper GI bleed Hx Psoriasis Surgical History History of left cataract surgery History of right cataract surgery History of prostate biopsy malignant S/P TIPS (transjugular intrahepatic portosystemic shunt) History of esophagogastroduodenoscopy (EGD) Most recent 05/2023 [facility] History of colonoscopy with polypectomy History of tonsillectomy and adenoidectomy History of abdominal paracentesis Multiple, most recent 01/2023 Family History Father , "3/4 liver gone due to drinking" Colorectal cancer, Onset Age: 63 Mother Lung cancer Daughter Cancer cervical and thyroid cancers Ovarian cancer Other No family history of adverse response to anesthesia 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 Smoking Status: Former smoker Second Hand Exposure: No; Do You Dip or Chew Tobacco: No; Hx Alcohol Use: No Hx Substance Use: No Preferred Language: Indonesian Communication Ability: Effective Visual Impairment: No Limitations Hearing Ability: Normal Engagement Manager Required: No Beliefs That Will Affect Care: None marital status: Current Living Situation: Spouse Current Living Situation Comment: 1 level single family home 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 How many Children do You have: 6 How many Children do You have Comment: one , eldest daughter in her sleep from seizure disorder Feels Safe at Home: Yes Childhood Exposure to Second-Hand Smoke: Yes Diet Comment: "I watch my sugar, average fasting is 140 mg/dl" caffeine: Yes (cola, sugar free, decaf) during the past year weight has: remained stable Dental Care, Regularly: No Physical Activity Frequency: Does not Exercise Seatbelt Use: always Sunscreen Use: Yes Assistive Devices: Oxygen - at Night, Stair Lift and Walker Review of Systems Review of Systems: All systems reviewed & are unremarkable except as noted in Subjective Physical Exam Physical Exam: Resting in bed, no acute distress, NCAT, PERRLA, EOMI's. Respiratory effort normal at rest, no conversational dyspnea Anterior lung exam clear, bilaterally mildly diminished S1-S2, no JVD Abdomen distended, mildly firm, mildly tender (generalized tenderness, + bowel sounds throughout Bilateral upper and lower extremity strength intact, mildly diminished Awake alert and oriented x 3 Skin pale but warm to touch. Mild jaundice noted. Results & Data Vital Signs (Past 12 Hours) Vital Signs Temp Pulse Pulse Resp BP Pulse Ox O2 Del Method 05/26/24 19:32 36.9 C 66 18 154/66 H 98 Room Air 05/26/24 16:41 36.3 C L 77 18 157/62 H 94 Room Air 05/26/24 15:11 69 05/26/24 15:00 36.3 C L 60 18 106/61 96 Room Air 05/26/24 11:51 36.7 C 70 17 139/63 94 Room Air 05/26/24 11:00 Room Air Laboratory Results 05/26/24 05/26/24 05/26/24 Range/Units 20:06 17:13 12:07 WBC (4.8-10.8) K/ul RBC (4.70-6.10) M/uL Hgb (14.0-18.0) g/dl Hct (42.0-52.0) % MCV (80.0-100.0) fL MCH (25.0-34.0) pg MCHC (32.0-36.0) g/dL RDW Std Deviation (36.4-46.3) fL RDW Coeff of Violetta (11.5-14.5) % Plt Count (130-400) K/uL MPV (9.4-12.4) fL Immature Gran % (Auto) % Neut % (Auto) % Lymph % (Auto) % Bladen % (Auto) % Eos % (Auto) % Baso % (Auto) % Neut # (Auto) (1.40-6.50) K/uL Lymph # (Auto) (1.20-3.40) K/uL Bladen # (Auto) (0.11-0.59) K/uL Eos # (Auto) (0.00-0.50) K/uL Baso # (Auto) (0.00-0.20) K/uL Immature Gran # (Auto) (0.01-0.20) K/uL RBC Morphology Polychromasia Anisocytosis Tear Drop Cells Ovalocytes PT (9.0-12.0) Seconds INR (0.9-1.1) Sodium (136-145) mmol/L Potassium (3.5-5.1) mmol/L Chloride (98-107) mmol/L Carbon Dioxide (21-32) mmol/L Anion Gap (3-11) BUN (6-23) mg/dl Creatinine (0.6-1.4) mg/dl Est Cr Clr Drug Dosing Est GFR ( Amer) ml/min Est GFR (Non-Af Amer) ml/min BUN/Creatinine Ratio (10-20) Glucose (70-99(Fasting)) mg/dl POC Glucose 265 H 141 H 178 H (70-99) mg/dl Lactate (0.4-2.0) mmol/L Calcium (8.6-10.3) mg/dl Magnesium (1.7-2.4) mg/dl Total Bilirubin (0.2-1.0) mg/dl AST (13-39) U/L ALT (7-52) U/L Alkaline Phosphatase (34-104) U/L Ammonia (18-72) umol/L Troponin I High Sens (0-20) pg/ml B-Natriuretic Peptide (0-100) pg/ml Total Protein (6.0-8.3) gm/dl Albumin (3.4-5.0) gm/dl Globulin (2.5-4.0) gm/dl Albumin/Globulin Ratio (0.9-2) Lipase (11-82) U/L TSH (0.300-4.500) uIu/ml Urine Color Urine Appearance (Clear) Urine pH (4.5-7.5) Ur Specific [place] (1.000-1.030) Urine Protein (Negative) Urine Glucose (UA) (Negative) Urine Ketones (Negative) Urine Blood (Negative) Urine Nitrite (Negative) Urine Bilirubin (Negative) Urine Urobilinogen (Negative) Ur Leukocyte Esterase (Negative) Urine WBC (Auto) (0-5) /hpf Urine RBC (Auto) (0-2) /hpf U Hyaline Cast (Auto) (0-2) /lpf U Epithel Cells (Auto) (0-2) /hpf Urine Bacteria (Auto) (None Seen) Amorphous Sediment (None Prsent) Granular Casts (None Prsent) /lpf Urine Sodium mmol/L Urine Potassium mmol/L Urine Chloride mmol/L Fluid Neutrophils % % Fluid Lymphocytes % % Fluid Basophils % % Fluid Meso/Macro/Bladen % % Fluid Comment Peritoneal Color Peritoneal Appearance Peritoneal WBC (Auto) (0-300) /ul Peritoneal RBC (Auto) /uL Peritoneal Albumin gm/dl Blood Type Antibody Screen Crossmatch 05/26/24 05/26/24 05/25/24 Range/Units 08:22 05:47 20:17 WBC (4.8-10.8) K/ul RBC (4.70-6.10) M/uL Hgb (14.0-18.0) g/dl Hct (42.0-52.0) % MCV (80.0-100.0) fL MCH (25.0-34.0) pg MCHC (32.0-36.0) g/dL RDW Std Deviation (36.4-46.3) fL RDW Coeff of Violetta (11.5-14.5) % Plt Count (130-400) K/uL MPV (9.4-12.4) fL Immature Gran % (Auto) % Neut % (Auto) % Lymph % (Auto) % Bladen % (Auto) % Eos % (Auto) % Baso % (Auto) % Neut # (Auto) (1.40-6.50) K/uL Lymph # (Auto) (1.20-3.40) K/uL Bladen # (Auto) (0.11-0.59) K/uL Eos # (Auto) (0.00-0.50) K/uL Baso # (Auto) (0.00-0.20) K/uL Immature Gran # (Auto) (0.01-0.20) K/uL RBC Morphology Polychromasia Anisocytosis Tear Drop Cells Ovalocytes PT (9.0-12.0) Seconds INR (0.9-1.1) Sodium 139 (136-145) mmol/L Potassium 4.6 (3.5-5.1) mmol/L Chloride 111 H (98-107) mmol/L Carbon Dioxide 22 (21-32) mmol/L Anion Gap 6 (3-11) BUN 40 H (6-23) mg/dl Creatinine 2.27 H D (0.6-1.4) mg/dl Est Cr Clr Drug Dosing 29.5 Est GFR ( Amer) 31.8 ml/min Est GFR (Non-Af Amer) 27.4 ml/min BUN/Creatinine Ratio 17.6 (10-20) Glucose 134 H (70-99(Fasting)) mg/dl POC Glucose 147 H 249 H (70-99) mg/dl Lactate (0.4-2.0) mmol/L Calcium 7.9 L (8.6-10.3) mg/dl Magnesium (1.7-2.4) mg/dl Total Bilirubin (0.2-1.0) mg/dl AST (13-39) U/L ALT (7-52) U/L Alkaline Phosphatase (34-104) U/L Ammonia (18-72) umol/L Troponin I High Sens (0-20) pg/ml B-Natriuretic Peptide (0-100) pg/ml Total Protein (6.0-8.3) gm/dl Albumin (3.4-5.0) gm/dl Globulin (2.5-4.0) gm/dl Albumin/Globulin Ratio (0.9-2) Lipase (11-82) U/L TSH (0.300-4.500) uIu/ml Urine Color Urine Appearance (Clear) Urine pH (4.5-7.5) Ur Specific [place] (1.000-1.030) Urine Protein (Negative) Urine Glucose (UA) (Negative) Urine Ketones (Negative) Urine Blood (Negative) Urine Nitrite (Negative) Urine Bilirubin (Negative) Urine Urobilinogen (Negative) Ur Leukocyte Esterase (Negative) Urine WBC (Auto) (0-5) /hpf Urine RBC (Auto) (0-2) /hpf U Hyaline Cast (Auto) (0-2) /lpf U Epithel Cells (Auto) (0-2) /hpf Urine Bacteria (Auto) (None Seen) Amorphous Sediment (None Prsent) Granular Casts (None Prsent) /lpf Urine Sodium mmol/L Urine Potassium mmol/L Urine Chloride mmol/L Fluid Neutrophils % % Fluid Lymphocytes % % Fluid Basophils % % Fluid Meso/Macro/Bladen % % Fluid Comment Peritoneal Color Peritoneal Appearance Peritoneal WBC (Auto) (0-300) /ul Peritoneal RBC (Auto) /uL Peritoneal Albumin gm/dl Blood Type Antibody Screen Crossmatch 05/25/24 05/25/24 05/25/24 Range/Units 17:05 12:01 08:01 WBC (4.8-10.8) K/ul RBC (4.70-6.10) M/uL Hgb (14.0-18.0) g/dl Hct (42.0-52.0) % MCV (80.0-100.0) fL MCH (25.0-34.0) pg MCHC (32.0-36.0) g/dL RDW Std Deviation (36.4-46.3) fL RDW Coeff of Violetta (11.5-14.5) % Plt Count (130-400) K/uL MPV (9.4-12.4) fL Immature Gran % (Auto) % Neut % (Auto) % Lymph % (Auto) % Bladen % (Auto) % Eos % (Auto) % Baso % (Auto) % Neut # (Auto) (1.40-6.50) K/uL Lymph # (Auto) (1.20-3.40) K/uL Bladen # (Auto) (0.11-0.59) K/uL Eos # (Auto) (0.00-0.50) K/uL Baso # (Auto) (0.00-0.20) K/uL Immature Gran # (Auto) (0.01-0.20) K/uL RBC Morphology Polychromasia Anisocytosis Tear Drop Cells Ovalocytes PT (9.0-12.0) Seconds INR (0.9-1.1) Sodium (136-145) mmol/L Potassium (3.5-5.1) mmol/L Chloride (98-107) mmol/L Carbon Dioxide (21-32) mmol/L Anion Gap (3-11) BUN (6-23) mg/dl Creatinine (0.6-1.4) mg/dl Est Cr Clr Drug Dosing Est GFR ( Amer) ml/min Est GFR (Non-Af Amer) ml/min BUN/Creatinine Ratio (10-20) Glucose (70-99(Fasting)) mg/dl POC Glucose 192 H 175 H 136 H (70-99) mg/dl Lactate (0.4-2.0) mmol/L Calcium (8.6-10.3) mg/dl Magnesium (1.7-2.4) mg/dl Total Bilirubin (0.2-1.0) mg/dl AST (13-39) U/L ALT (7-52) U/L Alkaline Phosphatase (34-104) U/L Ammonia (18-72) umol/L Troponin I High Sens (0-20) pg/ml B-Natriuretic Peptide (0-100) pg/ml Total Protein (6.0-8.3) gm/dl Albumin (3.4-5.0) gm/dl Globulin (2.5-4.0) gm/dl Albumin/Globulin Ratio (0.9-2) Lipase (11-82) U/L TSH (0.300-4.500) uIu/ml Urine Color Urine Appearance (Clear) Urine pH (4.5-7.5) Ur Specific [place] (1.000-1.030) Urine Protein (Negative) Urine Glucose (UA) (Negative) Urine Ketones (Negative) Urine Blood (Negative) Urine Nitrite (Negative) Urine Bilirubin (Negative) Urine Urobilinogen (Negative) Ur Leukocyte Esterase (Negative) Urine WBC (Auto) (0-5) /hpf Urine RBC (Auto) (0-2) /hpf U Hyaline Cast (Auto) (0-2) /lpf U Epithel Cells (Auto) (0-2) /hpf Urine Bacteria (Auto) (None Seen) Amorphous Sediment (None Prsent) Granular Casts (None Prsent) /lpf Urine Sodium mmol/L Urine Potassium mmol/L Urine Chloride mmol/L Fluid Neutrophils % % Fluid Lymphocytes % % Fluid Basophils % % Fluid Meso/Macro/Bladen % % Fluid Comment Peritoneal Color Peritoneal Appearance Peritoneal WBC (Auto) (0-300) /ul Peritoneal RBC (Auto) /uL Peritoneal Albumin gm/dl Blood Type Antibody Screen Crossmatch 05/25/24 05/24/24 05/24/24 Range/Units 05:37 23:40 20:12 WBC 5.15 (4.8-10.8) K/ul RBC 2.45 L (4.70-6.10) M/uL Hgb 7.9 L (14.0-18.0) g/dl Hct 24.1 L (42.0-52.0) % MCV 98.4 (80.0-100.0) fL MCH 32.2 (25.0-34.0) pg MCHC 32.8 (32.0-36.0) g/dL RDW Std Deviation 68.5 H (36.4-46.3) fL RDW Coeff of Violetta 19.3 H (11.5-14.5) % Plt Count 78 L (130-400) K/uL MPV 12.3 (9.4-12.4) fL Immature Gran % (Auto) 0.8 % Neut % (Auto) 73.6 % Lymph % (Auto) 12.2 % Bladen % (Auto) 6.6 % Eos % (Auto) 6.6 % Baso % (Auto) 0.2 % Neut # (Auto) 3.79 (1.40-6.50) K/uL Lymph # (Auto) 0.63 L (1.20-3.40) K/uL Bladen # (Auto) 0.34 (0.11-0.59) K/uL Eos # (Auto) 0.34 (0.00-0.50) K/uL Baso # (Auto) 0.01 (0.00-0.20) K/uL Immature Gran # (Auto) 0.04 (0.01-0.20) K/uL RBC Morphology Polychromasia 1+ Anisocytosis Tear Drop Cells 1+ Ovalocytes PT (9.0-12.0) Seconds INR (0.9-1.1) Sodium 140 (136-145) mmol/L Potassium 4.3 (3.5-5.1) mmol/L Chloride 110 H (98-107) mmol/L Carbon Dioxide 23 (21-32) mmol/L Anion Gap 7 (3-11) BUN 37 H (6-23) mg/dl Creatinine 2.77 H (0.6-1.4) mg/dl Est Cr Clr Drug Dosing 24.2 Est GFR ( Amer) 25.0 ml/min Est GFR (Non-Af Amer) 21.5 ml/min BUN/Creatinine Ratio 13.4 (10-20) Glucose 134 H (70-99(Fasting)) mg/dl POC Glucose 186 H (70-99) mg/dl Lactate (0.4-2.0) mmol/L Calcium 7.9 L (8.6-10.3) mg/dl Magnesium (1.7-2.4) mg/dl Total Bilirubin (0.2-1.0) mg/dl AST (13-39) U/L ALT (7-52) U/L Alkaline Phosphatase (34-104) U/L Ammonia (18-72) umol/L Troponin I High Sens (0-20) pg/ml B-Natriuretic Peptide (0-100) pg/ml Total Protein (6.0-8.3) gm/dl Albumin (3.4-5.0) gm/dl Globulin (2.5-4.0) gm/dl Albumin/Globulin Ratio (0.9-2) Lipase (11-82) U/L TSH (0.300-4.500) uIu/ml Urine Color Dark Yellow Urine Appearance Turbid A (Clear) Urine pH 5.5 (4.5-7.5) Ur Specific [place] 1.026 (1.000-1.030) Urine Protein 3+ H (Negative) Urine Glucose (UA) Negative (Negative) Urine Ketones Trace H (Negative) Urine Blood 3+ H (Negative) Urine Nitrite Negative (Negative) Urine Bilirubin Negative (Negative) Urine Urobilinogen Negative (Negative) Ur Leukocyte Esterase 2+ H (Negative) Urine WBC (Auto) >50 H (0-5) /hpf Urine RBC (Auto) >20 H (0-2) /hpf U Hyaline Cast (Auto) 3-5 H (0-2) /lpf U Epithel Cells (Auto) 0-2 (0-2) /hpf Urine Bacteria (Auto) 2+ H (None Seen) Amorphous Sediment (None Prsent) Granular Casts P (None Prsent) /lpf Urine Sodium mmol/L Urine Potassium mmol/L Urine Chloride mmol/L Fluid Neutrophils % % Fluid Lymphocytes % % Fluid Basophils % % Fluid Meso/Macro/Bladen % % Fluid Comment Peritoneal Color Peritoneal Appearance Peritoneal WBC (Auto) (0-300) /ul Peritoneal RBC (Auto) /uL Peritoneal Albumin gm/dl Blood Type Antibody Screen Crossmatch 05/24/24 05/24/24 05/24/24 Range/Units 17:10 12:11 08:18 WBC (4.8-10.8) K/ul RBC (4.70-6.10) M/uL Hgb (14.0-18.0) g/dl Hct (42.0-52.0) % MCV (80.0-100.0) fL MCH (25.0-34.0) pg MCHC (32.0-36.0) g/dL RDW Std Deviation (36.4-46.3) fL RDW Coeff of Violetta (11.5-14.5) % Plt Count (130-400) K/uL MPV (9.4-12.4) fL Immature Gran % (Auto) % Neut % (Auto) % Lymph % (Auto) % Bladen % (Auto) % Eos % (Auto) % Baso % (Auto) % Neut # (Auto) (1.40-6.50) K/uL Lymph # (Auto) (1.20-3.40) K/uL [place] # (Auto) (0.11-0.59) K/uL Eos # (Auto) (0.00-0.50) K/uL Baso # (Auto) (0.00-0.20) K/uL Immature Gran # (Auto) (0.01-0.20) K/uL RBC Morphology Polychromasia Anisocytosis Tear Drop Cells Ovalocytes PT (9.0-12.0) Seconds INR (0.9-1.1) Sodium (136-145) mmol/L Potassium (3.5-5.1) mmol/L Chloride (98-107) mmol/L Carbon Dioxide (21-32) mmol/L Anion Gap (3-11) BUN (6-23) mg/dl Creatinine (0.6-1.4) mg/dl Est Cr Clr Drug Dosing Est GFR ( Amer) ml/min Est GFR (Non-Af Amer) ml/min BUN/Creatinine Ratio (10-20) Glucose (70-99(Fasting)) mg/dl POC Glucose 145 H 159 H 136 H (70-99) mg/dl Lactate (0.4-2.0) mmol/L Calcium (8.6-10.3) mg/dl Magnesium (1.7-2.4) mg/dl Total Bilirubin (0.2-1.0) mg/dl AST (13-39) U/L ALT (7-52) U/L Alkaline Phosphatase (34-104) U/L Ammonia (18-72) umol/L Troponin I High Sens (0-20) pg/ml B-Natriuretic Peptide (0-100) pg/ml Total Protein (6.0-8.3) gm/dl Albumin (3.4-5.0) gm/dl Globulin (2.5-4.0) gm/dl Albumin/Globulin Ratio (0.9-2) Lipase (11-82) U/L TSH (0.300-4.500) uIu/ml Urine Color Urine Appearance (Clear) Urine pH (4.5-7.5) Ur Specific [place] (1.000-1.030) Urine Protein (Negative) Urine Glucose (UA) (Negative) Urine Ketones (Negative) Urine Blood (Negative) Urine Nitrite (Negative) Urine Bilirubin (Negative) Urine Urobilinogen (Negative) Ur Leukocyte Esterase (Negative) Urine WBC (Auto) (0-5) /hpf Urine RBC (Auto) (0-2) /hpf U Hyaline Cast (Auto) (0-2) /lpf U Epithel Cells (Auto) (0-2) /hpf Urine Bacteria (Auto) (None Seen) Amorphous Sediment (None Prsent) Granular Casts (None Prsent) /lpf Urine Sodium mmol/L Urine Potassium mmol/L Urine Chloride mmol/L Fluid Neutrophils % % Fluid Lymphocytes % % Fluid Basophils % % Fluid Meso/Macro/Bladen % % Fluid Comment Peritoneal Color Peritoneal Appearance Peritoneal WBC (Auto) (0-300) /ul Peritoneal RBC (Auto) /uL Peritoneal Albumin gm/dl Blood Type Antibody Screen Crossmatch 05/24/24 05/23/24 05/23/24 Range/Units 06:36 20:02 17:03 WBC 5.47 (4.8-10.8) K/ul RBC 2.69 L (4.70-6.10) M/uL Hgb 8.5 L (14.0-18.0) g/dl Hct 26.5 L (42.0-52.0) % MCV 98.5 (80.0-100.0) fL MCH 31.6 (25.0-34.0) pg MCHC 32.1 (32.0-36.0) g/dL RDW Std Deviation 68.4 H (36.4-46.3) fL RDW Coeff of Violetta 19.3 H (11.5-14.5) % Plt Count 66 L (130-400) K/uL MPV 10.9 (9.4-12.4) fL Immature Gran % (Auto) 0.5 % Neut % (Auto) 80.2 % Lymph % (Auto) 9.9 % Bladen % (Auto) 5.9 % Eos % (Auto) 3.3 % Baso % (Auto) 0.2 % Neut # (Auto) 4.39 (1.40-6.50) K/uL Lymph # (Auto) 0.54 L (1.20-3.40) K/uL Bladen # (Auto) 0.32 (0.11-0.59) K/uL Eos # (Auto) 0.18 (0.00-0.50) K/uL Baso # (Auto) 0.01 (0.00-0.20) K/uL Immature Gran # (Auto) 0.03 (0.01-0.20) K/uL RBC Morphology Polychromasia Anisocytosis Tear Drop Cells Ovalocytes PT (9.0-12.0) Seconds INR (0.9-1.1) Sodium 141 (136-145) mmol/L Potassium 4.2 (3.5-5.1) mmol/L Chloride 112 H (98-107) mmol/L Carbon Dioxide 23 (21-32) mmol/L Anion Gap 6 (3-11) BUN 35 H (6-23) mg/dl Creatinine 2.71 H (0.6-1.4) mg/dl Est Cr Clr Drug Dosing 24.7 Est GFR ( Amer) 25.6 ml/min Est GFR (Non-Af Amer) 22.1 ml/min BUN/Creatinine Ratio 12.9 (10-20) Glucose 148 H (70-99(Fasting)) mg/dl POC Glucose 189 H 139 H (70-99) mg/dl Lactate (0.4-2.0) mmol/L Calcium 8.3 L (8.6-10.3) mg/dl Magnesium (1.7-2.4) mg/dl Total Bilirubin (0.2-1.0) mg/dl AST (13-39) U/L ALT (7-52) U/L Alkaline Phosphatase (34-104) U/L Ammonia (18-72) umol/L Troponin I High Sens (0-20) pg/ml B-Natriuretic Peptide (0-100) pg/ml Total Protein (6.0-8.3) gm/dl Albumin (3.4-5.0) gm/dl Globulin (2.5-4.0) gm/dl Albumin/Globulin Ratio (0.9-2) Lipase (11-82) U/L TSH (0.300-4.500) uIu/ml Urine Color Urine Appearance (Clear) Urine pH (4.5-7.5) Ur Specific [place] (1.000-1.030) Urine Protein (Negative) Urine Glucose (UA) (Negative) Urine Ketones (Negative) Urine Blood (Negative) Urine Nitrite (Negative) Urine Bilirubin (Negative) Urine Urobilinogen (Negative) Ur Leukocyte Esterase (Negative) Urine WBC (Auto) (0-5) /hpf Urine RBC (Auto) (0-2) /hpf U Hyaline Cast (Auto) (0-2) /lpf U Epithel Cells (Auto) (0-2) /hpf Urine Bacteria (Auto) (None Seen) Amorphous Sediment (None Prsent) Granular Casts (None Prsent) /lpf Urine Sodium mmol/L Urine Potassium mmol/L Urine Chloride mmol/L Fluid Neutrophils % % Fluid Lymphocytes % % Fluid Basophils % % Fluid Meso/Macro/Bladen % % Fluid Comment Peritoneal Color Peritoneal Appearance Peritoneal WBC (Auto) (0-300) /ul Peritoneal RBC (Auto) /uL Peritoneal Albumin gm/dl Blood Type Antibody Screen Crossmatch 05/23/24 05/23/24 05/23/24 Range/Units 12:18 07:54 06:38 WBC 4.07 L (4.8-10.8) K/ul RBC 2.53 L (4.70-6.10) M/uL Hgb 8.1 L (14.0-18.0) g/dl Hct 25.0 L (42.0-52.0) % MCV 98.8 (80.0-100.0) fL MCH 32.0 (25.0-34.0) pg MCHC 32.4 (32.0-36.0) g/dL RDW Std Deviation 67.8 H (36.4-46.3) fL RDW Coeff of Violetta 19.3 H (11.5-14.5) % Plt Count 50 L (130-400) K/uL MPV 12.2 (9.4-12.4) fL Immature Gran % (Auto) % Neut % (Auto) % Lymph % (Auto) % [place] % (Auto) % Eos % (Auto) % Baso % (Auto) % Neut # (Auto) (1.40-6.50) K/uL Lymph # (Auto) (1.20-3.40) K/uL [place] # (Auto) (0.11-0.59) K/uL Eos # (Auto) (0.00-0.50) K/uL Baso # (Auto) (0.00-0.20) K/uL Immature Gran # (Auto) (0.01-0.20) K/uL RBC Morphology Unremarkable Polychromasia Anisocytosis Tear Drop Cells Ovalocytes PT (9.0-12.0) Seconds INR (0.9-1.1) Sodium 143 (136-145) mmol/L Potassium 4.0 (3.5-5.1) mmol/L Chloride 113 H (98-107) mmol/L Carbon Dioxide 21 (21-32) mmol/L Anion Gap 9 (3-11) BUN 38 H (6-23) mg/dl Creatinine 2.63 H (0.6-1.4) mg/dl Est Cr Clr Drug Dosing 25.4 Est GFR ( Amer) 26.6 ml/min Est GFR (Non-Af Amer) 22.9 ml/min BUN/Creatinine Ratio 14.4 (10-20) Glucose 142 H (70-99(Fasting)) mg/dl POC Glucose 188 H 156 H (70-99) mg/dl Lactate (0.4-2.0) mmol/L Calcium 8.6 (8.6-10.3) mg/dl Magnesium (1.7-2.4) mg/dl Total Bilirubin (0.2-1.0) mg/dl AST (13-39) U/L ALT (7-52) U/L Alkaline Phosphatase (34-104) U/L Ammonia (18-72) umol/L Troponin I High Sens (0-20) pg/ml B-Natriuretic Peptide (0-100) pg/ml Total Protein (6.0-8.3) gm/dl Albumin (3.4-5.0) gm/dl Globulin (2.5-4.0) gm/dl Albumin/Globulin Ratio (0.9-2) Lipase (11-82) U/L TSH (0.300-4.500) uIu/ml Urine Color Urine Appearance (Clear) Urine pH (4.5-7.5) Ur Specific [place] (1.000-1.030) Urine Protein (Negative) Urine Glucose (UA) (Negative) Urine Ketones (Negative) Urine Blood (Negative) Urine Nitrite (Negative) Urine Bilirubin (Negative) Urine Urobilinogen (Negative) Ur Leukocyte Esterase (Negative) Urine WBC (Auto) (0-5) /hpf Urine RBC (Auto) (0-2) /hpf U Hyaline Cast (Auto) (0-2) /lpf U Epithel Cells (Auto) (0-2) /hpf Urine Bacteria (Auto) (None Seen) Amorphous Sediment (None Prsent) Granular Casts (None Prsent) /lpf Urine Sodium mmol/L Urine Potassium mmol/L Urine Chloride mmol/L Fluid Neutrophils % % Fluid Lymphocytes % % Fluid Basophils % % Fluid Meso/Macro/Bladen % % Fluid Comment Peritoneal Color Peritoneal Appearance Peritoneal WBC (Auto) (0-300) /ul Peritoneal RBC (Auto) /uL Peritoneal Albumin gm/dl Blood Type Antibody Screen Crossmatch 05/22/24 05/22/24 05/22/24 Range/Units 20:07 17:00 12:11 WBC (4.8-10.8) K/ul RBC (4.70-6.10) M/uL Hgb (14.0-18.0) g/dl Hct (42.0-52.0) % MCV (80.0-100.0) fL MCH (25.0-34.0) pg MCHC (32.0-36.0) g/dL RDW Std Deviation (36.4-46.3) fL RDW Coeff of Violetta (11.5-14.5) % Plt Count (130-400) K/uL MPV (9.4-12.4) fL Immature Gran % (Auto) % Neut % (Auto) % Lymph % (Auto) % [place] % (Auto) % Eos % (Auto) % Baso % (Auto) % Neut # (Auto) (1.40-6.50) K/uL Lymph # (Auto) (1.20-3.40) K/uL [place] # (Auto) (0.11-0.59) K/uL Eos # (Auto) (0.00-0.50) K/uL Baso # (Auto) (0.00-0.20) K/uL Immature Gran # (Auto) (0.01-0.20) K/uL RBC Morphology Polychromasia Anisocytosis Tear Drop Cells Ovalocytes PT (9.0-12.0) Seconds INR (0.9-1.1) Sodium (136-145) mmol/L Potassium (3.5-5.1) mmol/L Chloride (98-107) mmol/L Carbon Dioxide (21-32) mmol/L Anion Gap (3-11) BUN (6-23) mg/dl Creatinine (0.6-1.4) mg/dl Est Cr Clr Drug Dosing Est GFR ( Amer) ml/min Est GFR (Non-Af Amer) ml/min BUN/Creatinine Ratio (10-20) Glucose (70-99(Fasting)) mg/dl POC Glucose 112 H 263 H 209 H (70-99) mg/dl Lactate (0.4-2.0) mmol/L Calcium (8.6-10.3) mg/dl Magnesium (1.7-2.4) mg/dl Total Bilirubin (0.2-1.0) mg/dl AST (13-39) U/L ALT (7-52) U/L Alkaline Phosphatase (34-104) U/L Ammonia (18-72) umol/L Troponin I High Sens (0-20) pg/ml B-Natriuretic Peptide (0-100) pg/ml Total Protein (6.0-8.3) gm/dl Albumin (3.4-5.0) gm/dl Globulin (2.5-4.0) gm/dl Albumin/Globulin Ratio (0.9-2) Lipase (11-82) U/L TSH (0.300-4.500) uIu/ml Urine Color Urine Appearance (Clear) Urine pH (4.5-7.5) Ur Specific [place] (1.000-1.030) Urine Protein (Negative) Urine Glucose (UA) (Negative) Urine Ketones (Negative) Urine Blood (Negative) Urine Nitrite (Negative) Urine Bilirubin (Negative) Urine Urobilinogen (Negative) Ur Leukocyte Esterase (Negative) Urine WBC (Auto) (0-5) /hpf Urine RBC (Auto) (0-2) /hpf U Hyaline Cast (Auto) (0-2) /lpf U Epithel Cells (Auto) (0-2) /hpf Urine Bacteria (Auto) (None Seen) Amorphous Sediment (None Prsent) Granular Casts (None Prsent) /lpf Urine Sodium mmol/L Urine Potassium mmol/L Urine Chloride mmol/L Fluid Neutrophils % % Fluid Lymphocytes % % Fluid Basophils % % Fluid Meso/Macro/Bladen % % Fluid Comment Peritoneal Color Peritoneal Appearance Peritoneal WBC (Auto) (0-300) /ul Peritoneal RBC (Auto) /uL Peritoneal Albumin gm/dl Blood Type Antibody Screen Crossmatch 05/22/24 05/22/24 05/22/24 Range/Units 08:09 07:57 06:45 WBC 2.58 L (4.8-10.8) K/ul RBC 1.86 L (4.70-6.10) M/uL Hgb 5.9 L* (14.0-18.0) g/dl Hct 18.6 L* (42.0-52.0) % MCV 100.0 (80.0-100.0) fL MCH 31.7 (25.0-34.0) pg MCHC 31.7 L (32.0-36.0) g/dL RDW Std Deviation 69.0 H (36.4-46.3) fL RDW Coeff of Violetta 19.0 H (11.5-14.5) % Plt Count 54 L (130-400) K/uL MPV 12.8 H (9.4-12.4) fL Immature Gran % (Auto) 0.4 % Neut % (Auto) 66.2 % Lymph % (Auto) 17.1 % [place] % (Auto) 6.2 % Eos % (Auto) 9.7 % Baso % (Auto) 0.4 % Neut # (Auto) 1.71 (1.40-6.50) K/uL Lymph # (Auto) 0.44 L (1.20-3.40) K/uL [place] # (Auto) 0.16 (0.11-0.59) K/uL Eos # (Auto) 0.25 (0.00-0.50) K/uL Baso # (Auto) 0.01 (0.00-0.20) K/uL Immature Gran # (Auto) 0.01 (0.01-0.20) K/uL RBC Morphology Polychromasia 1+ Anisocytosis Tear Drop Cells 1+ Ovalocytes 1+ PT (9.0-12.0) Seconds INR (0.9-1.1) Sodium 140 (136-145) mmol/L Potassium 3.7 (3.5-5.1) mmol/L Chloride 110 H (98-107) mmol/L Carbon Dioxide 22 (21-32) mmol/L Anion Gap 8 (3-11) BUN 40 H (6-23) mg/dl Creatinine 2.59 H (0.6-1.4) mg/dl Est Cr Clr Drug Dosing 25.8 Est GFR ( Amer) 27.1 ml/min Est GFR (Non-Af Amer) 23.4 ml/min BUN/Creatinine Ratio 15.4 (10-20) Glucose 129 H (70-99(Fasting)) mg/dl POC Glucose 140 H (70-99) mg/dl Lactate (0.4-2.0) mmol/L Calcium 7.7 L (8.6-10.3) mg/dl Magnesium (1.7-2.4) mg/dl Total Bilirubin (0.2-1.0) mg/dl AST (13-39) U/L ALT (7-52) U/L Alkaline Phosphatase (34-104) U/L Ammonia (18-72) umol/L Troponin I High Sens (0-20) pg/ml B-Natriuretic Peptide (0-100) pg/ml Total Protein (6.0-8.3) gm/dl Albumin (3.4-5.0) gm/dl Globulin (2.5-4.0) gm/dl Albumin/Globulin Ratio (0.9-2) Lipase (11-82) U/L TSH (0.300-4.500) uIu/ml Urine Color Urine Appearance (Clear) Urine pH (4.5-7.5) Ur Specific [place] (1.000-1.030) Urine Protein (Negative) Urine Glucose (UA) (Negative) Urine Ketones (Negative) Urine Blood (Negative) Urine Nitrite (Negative) Urine Bilirubin (Negative) Urine Urobilinogen (Negative) Ur Leukocyte Esterase (Negative) Urine WBC (Auto) (0-5) /hpf Urine RBC (Auto) (0-2) /hpf U Hyaline Cast (Auto) (0-2) /lpf U Epithel Cells (Auto) (0-2) /hpf Urine Bacteria (Auto) (None Seen) Amorphous Sediment (None Prsent) Granular Casts (None Prsent) /lpf Urine Sodium mmol/L Urine Potassium mmol/L Urine Chloride mmol/L Fluid Neutrophils % % Fluid Lymphocytes % % Fluid Basophils % % Fluid Meso/Macro/Bladen % % Fluid Comment Peritoneal Color Peritoneal Appearance Peritoneal WBC (Auto) (0-300) /ul Peritoneal RBC (Auto) /uL Peritoneal Albumin gm/dl Blood Type O Positive Antibody Screen NEGATIVE Crossmatch See Detail 05/21/24 05/21/24 05/21/24 Range/Units 23:42 20:13 16:58 WBC (4.8-10.8) K/ul RBC (4.70-6.10) M/uL Hgb (14.0-18.0) g/dl Hct (42.0-52.0) % MCV (80.0-100.0) fL MCH (25.0-34.0) pg MCHC (32.0-36.0) g/dL RDW Std Deviation (36.4-46.3) fL RDW Coeff of Violetta (11.5-14.5) % Plt Count (130-400) K/uL MPV (9.4-12.4) fL Immature Gran % (Auto) % Neut % (Auto) % Lymph % (Auto) % [place] % (Auto) % Eos % (Auto) % Baso % (Auto) % Neut # (Auto) (1.40-6.50) K/uL Lymph # (Auto) (1.20-3.40) K/uL [place] # (Auto) (0.11-0.59) K/uL Eos # (Auto) (0.00-0.50) K/uL Baso # (Auto) (0.00-0.20) K/uL Immature Gran # (Auto) (0.01-0.20) K/uL RBC Morphology Polychromasia Anisocytosis Tear Drop Cells Ovalocytes PT (9.0-12.0) Seconds INR (0.9-1.1) Sodium (136-145) mmol/L Potassium (3.5-5.1) mmol/L Chloride (98-107) mmol/L Carbon Dioxide (21-32) mmol/L Anion Gap (3-11) BUN (6-23) mg/dl Creatinine (0.6-1.4) mg/dl Est Cr Clr Drug Dosing Est GFR ( Amer) ml/min Est GFR (Non-Af Amer) ml/min BUN/Creatinine Ratio (10-20) Glucose (70-99(Fasting)) mg/dl POC Glucose 202 H 178 H (70-99) mg/dl Lactate (0.4-2.0) mmol/L Calcium (8.6-10.3) mg/dl Magnesium (1.7-2.4) mg/dl Total Bilirubin (0.2-1.0) mg/dl AST (13-39) U/L ALT (7-52) U/L Alkaline Phosphatase (34-104) U/L Ammonia (18-72) umol/L Troponin I High Sens (0-20) pg/ml B-Natriuretic Peptide (0-100) pg/ml Total Protein (6.0-8.3) gm/dl Albumin (3.4-5.0) gm/dl Globulin (2.5-4.0) gm/dl Albumin/Globulin Ratio (0.9-2) Lipase (11-82) U/L TSH (0.300-4.500) uIu/ml Urine Color Power Urine Appearance Turbid A (Clear) Urine pH 5.0 (4.5-7.5) Ur Specific [place] 1.026 (1.000-1.030) Urine Protein 3+ H (Negative) Urine Glucose (UA) Negative (Negative) Urine Ketones Trace H (Negative) Urine Blood 3+ H (Negative) Urine Nitrite Negative (Negative) Urine Bilirubin Negative (Negative) Urine Urobilinogen Negative (Negative) Ur Leukocyte Esterase 1+ H (Negative) Urine WBC (Auto) 11-20 H (0-5) /hpf Urine RBC (Auto) >20 H (0-2) /hpf U Hyaline Cast (Auto) 0-2 (0-2) /lpf U Epithel Cells (Auto) 0-2 (0-2) /hpf Urine Bacteria (Auto) None Seen (None Seen) Amorphous Sediment Present A (None Prsent) Granular Casts (None Prsent) /lpf Urine Sodium 40 mmol/L Urine Potassium 85.7 mmol/L Urine Chloride 28 mmol/L Fluid Neutrophils % % Fluid Lymphocytes % % Fluid Basophils % % Fluid Meso/Macro/Bladen % % Fluid Comment Peritoneal Color Peritoneal Appearance Peritoneal WBC (Auto) (0-300) /ul Peritoneal RBC (Auto) /uL Peritoneal Albumin gm/dl Blood Type Antibody Screen Crossmatch 05/21/24 05/21/24 05/21/24 Range/Units 11:52 09:21 07:57 WBC 3.57 L (4.8-10.8) K/ul RBC 2.34 L (4.70-6.10) M/uL Hgb 7.5 L (14.0-18.0) g/dl Hct 23.6 L (42.0-52.0) % MCV 100.9 H (80.0-100.0) fL MCH 32.1 (25.0-34.0) pg MCHC 31.8 L (32.0-36.0) g/dL RDW Std Deviation 71.2 H (36.4-46.3) fL RDW Coeff of Violetta 19.5 H (11.5-14.5) % Plt Count 75 L (130-400) K/uL MPV 12.5 H (9.4-12.4) fL Immature Gran % (Auto) 0.3 % Neut % (Auto) 70.1 % Lymph % (Auto) 14.8 % [place] % (Auto) 6.4 % Eos % (Auto) 8.1 % Baso % (Auto) 0.3 % Neut # (Auto) 2.50 (1.40-6.50) K/uL Lymph # (Auto) 0.53 L (1.20-3.40) K/uL [place] # (Auto) 0.23 (0.11-0.59) K/uL Eos # (Auto) 0.29 (0.00-0.50) K/uL Baso # (Auto) 0.01 (0.00-0.20) K/uL Immature Gran # (Auto) 0.01 (0.01-0.20) K/uL RBC Morphology Polychromasia 1+ Anisocytosis Present Tear Drop Cells 1+ Ovalocytes 1+ PT (9.0-12.0) Seconds INR (0.9-1.1) Sodium 138 (136-145) mmol/L Potassium 3.9 (3.5-5.1) mmol/L Chloride 108 H (98-107) mmol/L Carbon Dioxide 22 (21-32) mmol/L Anion Gap 8 (3-11) BUN 36 H (6-23) mg/dl Creatinine 2.37 H D (0.6-1.4) mg/dl Est Cr Clr Drug Dosing 28.2 Est GFR ( Amer) 30.1 ml/min Est GFR (Non-Af Amer) 26.0 ml/min BUN/Creatinine Ratio 15.2 (10-20) Glucose 148 H (70-99(Fasting)) mg/dl POC Glucose 144 H 113 H (70-99) mg/dl Lactate (0.4-2.0) mmol/L Calcium 7.6 L (8.6-10.3) mg/dl Magnesium 2.5 H (1.7-2.4) mg/dl Total Bilirubin 3.4 H D (0.2-1.0) mg/dl AST 27 (13-39) U/L ALT 15 (7-52) U/L Alkaline Phosphatase 146 H (34-104) U/L Ammonia (18-72) umol/L Troponin I High Sens (0-20) pg/ml B-Natriuretic Peptide (0-100) pg/ml Total Protein 5.2 L (6.0-8.3) gm/dl Albumin 2.9 L (3.4-5.0) gm/dl Globulin 2.3 L (2.5-4.0) gm/dl Albumin/Globulin Ratio 1.3 (0.9-2) Lipase (11-82) U/L TSH (0.300-4.500) uIu/ml Urine Color Urine Appearance (Clear) Urine pH (4.5-7.5) Ur Specific [place] (1.000-1.030) Urine Protein (Negative) Urine Glucose (UA) (Negative) Urine Ketones (Negative) Urine Blood (Negative) Urine Nitrite (Negative) Urine Bilirubin (Negative) Urine Urobilinogen (Negative) Ur Leukocyte Esterase (Negative) Urine WBC (Auto) (0-5) /hpf Urine RBC (Auto) (0-2) /hpf U Hyaline Cast (Auto) (0-2) /lpf U Epithel Cells (Auto) (0-2) /hpf Urine Bacteria (Auto) (None Seen) Amorphous Sediment (None Prsent) Granular Casts (None Prsent) /lpf Urine Sodium mmol/L Urine Potassium mmol/L Urine Chloride mmol/L Fluid Neutrophils % % Fluid Lymphocytes % % Fluid Basophils % % Fluid Meso/Macro/Bladen % % Fluid Comment Peritoneal Color Peritoneal Appearance Peritoneal WBC (Auto) (0-300) /ul Peritoneal RBC (Auto) /uL Peritoneal Albumin gm/dl Blood Type Antibody Screen Crossmatch 05/20/24 05/20/24 05/20/24 Range/Units Unknown 20:15 17:11 WBC (4.8-10.8) K/ul RBC (4.70-6.10) M/uL Hgb (14.0-18.0) g/dl Hct (42.0-52.0) % MCV (80.0-100.0) fL MCH (25.0-34.0) pg MCHC (32.0-36.0) g/dL RDW Std Deviation (36.4-46.3) fL RDW Coeff of Violetta (11.5-14.5) % Plt Count (130-400) K/uL MPV (9.4-12.4) fL Immature Gran % (Auto) % Neut % (Auto) % Lymph % (Auto) % [place] % (Auto) % Eos % (Auto) % Baso % (Auto) % Neut # (Auto) (1.40-6.50) K/uL Lymph # (Auto) (1.20-3.40) K/uL [place] # (Auto) (0.11-0.59) K/uL Eos # (Auto) (0.00-0.50) K/uL Baso # (Auto) (0.00-0.20) K/uL Immature Gran # (Auto) (0.01-0.20) K/uL RBC Morphology Polychromasia Anisocytosis Tear Drop Cells Ovalocytes PT (9.0-12.0) Seconds INR (0.9-1.1) Sodium (136-145) mmol/L Potassium (3.5-5.1) mmol/L Chloride (98-107) mmol/L Carbon Dioxide (21-32) mmol/L Anion Gap (3-11) BUN (6-23) mg/dl Creatinine (0.6-1.4) mg/dl Est Cr Clr Drug Dosing Est GFR ( Amer) ml/min Est GFR (Non-Af Amer) ml/min BUN/Creatinine Ratio (10-20) Glucose (70-99(Fasting)) mg/dl POC Glucose 133 H 171 H (70-99) mg/dl Lactate (0.4-2.0) mmol/L Calcium (8.6-10.3) mg/dl Magnesium (1.7-2.4) mg/dl Total Bilirubin (0.2-1.0) mg/dl AST (13-39) U/L ALT (7-52) U/L Alkaline Phosphatase (34-104) U/L Ammonia (18-72) umol/L Troponin I High Sens (0-20) pg/ml B-Natriuretic Peptide (0-100) pg/ml Total Protein (6.0-8.3) gm/dl Albumin (3.4-5.0) gm/dl Globulin (2.5-4.0) gm/dl Albumin/Globulin Ratio (0.9-2) Lipase (11-82) U/L TSH (0.300-4.500) uIu/ml Urine Color Urine Appearance (Clear) Urine pH (4.5-7.5) Ur Specific [place] (1.000-1.030) Urine Protein (Negative) Urine Glucose (UA) (Negative) Urine Ketones (Negative) Urine Blood (Negative) Urine Nitrite (Negative) Urine Bilirubin (Negative) Urine Urobilinogen (Negative) Ur Leukocyte Esterase (Negative) Urine WBC (Auto) (0-5) /hpf Urine RBC (Auto) (0-2) /hpf U Hyaline Cast (Auto) (0-2) /lpf U Epithel Cells (Auto) (0-2) /hpf Urine Bacteria (Auto) (None Seen) Amorphous Sediment (None Prsent) Granular Casts (None Prsent) /lpf Urine Sodium mmol/L Urine Potassium mmol/L Urine Chloride mmol/L Fluid Neutrophils % 5 % Fluid Lymphocytes % 72 % Fluid Basophils % 1 % Fluid Meso/Macro/Bladen % 22 % Fluid Comment Peritoneal Color Pale Yellow Peritoneal Appearance Cloudy Peritoneal WBC (Auto) 95 (0-300) /ul Peritoneal RBC (Auto) < 2000 /uL Peritoneal Albumin < 1.5 gm/dl Blood Type Antibody Screen Crossmatch 05/20/24 05/20/24 05/20/24 Range/Units 15:37 12:15 05:29 WBC (4.8-10.8) K/ul RBC (4.70-6.10) M/uL Hgb (14.0-18.0) g/dl Hct (42.0-52.0) % MCV (80.0-100.0) fL MCH (25.0-34.0) pg MCHC (32.0-36.0) g/dL RDW Std Deviation (36.4-46.3) fL RDW Coeff of Violetta (11.5-14.5) % Plt Count (130-400) K/uL MPV (9.4-12.4) fL Immature Gran % (Auto) % Neut % (Auto) % Lymph % (Auto) % [place] % (Auto) % Eos % (Auto) % Baso % (Auto) % Neut # (Auto) (1.40-6.50) K/uL Lymph # (Auto) (1.20-3.40) K/uL [place] # (Auto) (0.11-0.59) K/uL Eos # (Auto) (0.00-0.50) K/uL Baso # (Auto) (0.00-0.20) K/uL Immature Gran # (Auto) (0.01-0.20) K/uL RBC Morphology Polychromasia Anisocytosis Tear Drop Cells Ovalocytes PT (9.0-12.0) Seconds INR (0.9-1.1) Sodium (136-145) mmol/L Potassium (3.5-5.1) mmol/L Chloride (98-107) mmol/L Carbon Dioxide (21-32) mmol/L Anion Gap (3-11) BUN (6-23) mg/dl Creatinine (0.6-1.4) mg/dl Est Cr Clr Drug Dosing Est GFR ( Amer) ml/min Est GFR (Non-Af Amer) ml/min BUN/Creatinine Ratio (10-20) Glucose (70-99(Fasting)) mg/dl POC Glucose 179 H 173 H (70-99) mg/dl Lactate (0.4-2.0) mmol/L Calcium (8.6-10.3) mg/dl Magnesium (1.7-2.4) mg/dl Total Bilirubin (0.2-1.0) mg/dl AST (13-39) U/L ALT (7-52) U/L Alkaline Phosphatase (34-104) U/L Ammonia (18-72) umol/L Troponin I High Sens (0-20) pg/ml B-Natriuretic Peptide (0-100) pg/ml Total Protein (6.0-8.3) gm/dl Albumin (3.4-5.0) gm/dl Globulin (2.5-4.0) gm/dl Albumin/Globulin Ratio (0.9-2) Lipase (11-82) U/L TSH (0.300-4.500) uIu/ml Urine Color Power Urine Appearance Turbid A (Clear) Urine pH 5.5 (4.5-7.5) Ur Specific [place] 1.022 (1.000-1.030) Urine Protein 3+ H (Negative) Urine Glucose (UA) Negative (Negative) Urine Ketones Negative (Negative) Urine Blood 3+ H (Negative) Urine Nitrite Negative (Negative) Urine Bilirubin 1+ H (Negative) Urine Urobilinogen Negative (Negative) Ur Leukocyte Esterase 2+ H (Negative) Urine WBC (Auto) >50 H (0-5) /hpf Urine RBC (Auto) >20 H (0-2) /hpf U Hyaline Cast (Auto) 3-5 H (0-2) /lpf U Epithel Cells (Auto) 0-2 (0-2) /hpf Urine Bacteria (Auto) None Seen (None Seen) Amorphous Sediment (None Prsent) Granular Casts (None Prsent) /lpf Urine Sodium mmol/L Urine Potassium mmol/L Urine Chloride mmol/L Fluid Neutrophils % % Fluid Lymphocytes % % Fluid Basophils % % Fluid Meso/Macro/Bladen % % Fluid Comment Peritoneal Color Peritoneal Appearance Peritoneal WBC (Auto) (0-300) /ul Peritoneal RBC (Auto) /uL Peritoneal Albumin gm/dl Blood Type Antibody Screen Crossmatch 05/20/24 Range/Units 03:59 WBC 3.31 L (4.8-10.8) K/ul RBC 2.75 L (4.70-6.10) M/uL Hgb 8.8 L (14.0-18.0) g/dl Hct 27.2 L (42.0-52.0) % MCV 98.9 (80.0-100.0) fL MCH 32.0 (25.0-34.0) pg MCHC 32.4 (32.0-36.0) g/dL RDW Std Deviation 69.5 H (36.4-46.3) fL RDW Coeff of Violetta 19.5 H (11.5-14.5) % Plt Count 93 L (130-400) K/uL MPV 12.1 (9.4-12.4) fL Immature Gran % (Auto) 0.3 % Neut % (Auto) 64.1 % Lymph % (Auto) 20.8 % Bladen % (Auto) 5.7 % Eos % (Auto) 8.5 % Baso % (Auto) 0.6 % Neut # (Auto) 2.12 (1.40-6.50) K/uL Lymph # (Auto) 0.69 L (1.20-3.40) K/uL Bladen # (Auto) 0.19 (0.11-0.59) K/uL Eos # (Auto) 0.28 (0.00-0.50) K/uL Baso # (Auto) 0.02 (0.00-0.20) K/uL Immature Gran # (Auto) 0.01 (0.01-0.20) K/uL RBC Morphology Polychromasia Anisocytosis Tear Drop Cells Ovalocytes PT 12.1 H (9.0-12.0) Seconds INR 1.1 (0.9-1.1) Sodium 139 (136-145) mmol/L Potassium 3.6 (3.5-5.1) mmol/L Chloride 111 H (98-107) mmol/L Carbon Dioxide 22 (21-32) mmol/L Anion Gap 6 (3-11) BUN 35 H (6-23) mg/dl Creatinine 1.45 H (0.6-1.4) mg/dl Est Cr Clr Drug Dosing Not Reportable Est GFR ( Amer) 55.0 ml/min Est GFR (Non-Af Amer) 47.4 ml/min BUN/Creatinine Ratio 24.1 H (10-20) Glucose 173 H (70-99(Fasting)) mg/dl POC Glucose (70-99) mg/dl Lactate 1.9 (0.4-2.0) mmol/L Calcium 8.2 L (8.6-10.3) mg/dl Magnesium 1.6 L (1.7-2.4) mg/dl Total Bilirubin 2.0 H (0.2-1.0) mg/dl AST 44 H (13-39) U/L ALT 24 (7-52) U/L Alkaline Phosphatase 215 H (34-104) U/L Ammonia 60.0 (18-72) umol/L Troponin I High Sens 10.4 (0-20) pg/ml B-Natriuretic Peptide 113 H (0-100) pg/ml Total Protein 5.5 L (6.0-8.3) gm/dl Albumin 2.4 L (3.4-5.0) gm/dl Globulin 3.1 (2.5-4.0) gm/dl Albumin/Globulin Ratio 0.8 L (0.9-2) Lipase 136 H (11-82) U/L TSH 3.241 (0.300-4.500) uIu/ml Urine Color Urine Appearance (Clear) Urine pH (4.5-7.5) Ur Specific [place] (1.000-1.030) Urine Protein (Negative) Urine Glucose (UA) (Negative) Urine Ketones (Negative) Urine Blood (Negative) Urine Nitrite (Negative) Urine Bilirubin (Negative) Urine Urobilinogen (Negative) Ur Leukocyte Esterase (Negative) Urine WBC (Auto) (0-5) /hpf Urine RBC (Auto) (0-2) /hpf U Hyaline Cast (Auto) (0-2) /lpf U Epithel Cells (Auto) (0-2) /hpf Urine Bacteria (Auto) (None Seen) Amorphous Sediment (None Prsent) Granular Casts (None Prsent) /lpf Urine Sodium mmol/L Urine Potassium mmol/L Urine Chloride mmol/L Fluid Neutrophils % % Fluid Lymphocytes % % Fluid Basophils % % Fluid Meso/Macro/Bladen % % Fluid Comment Peritoneal Color Peritoneal Appearance Peritoneal WBC (Auto) (0-300) /ul Peritoneal RBC (Auto) /uL Peritoneal Albumin gm/dl Blood Type Antibody Screen Crossmatch Diagnostic Findings Abdomen/Pelvis CT 05/20/24 03:56 Exam(s): CT ABDOMEN + PELVIS Without Contrast EXAM: CT Abdomen and Pelvis Without Intravenous Contrast CLINICAL HISTORY: Reason for exam: abdominal pain; ascites. TECHNIQUE: Axial computed tomography images of the abdomen and pelvis without intravenous contrast. CTDI is 25.18 mGy and DLP is 1286.53 mGy-cm. Automated exposure control was utilized for the study. A dose lowering technique was utilized adhering to the principles of ALARA. COMPARISON: 04/23/24 FINDINGS: Lung bases: Unremarkable. No mass. No consolidation. Heart: Moderate coronary vascular calcifications are seen. ABDOMEN: Liver: There is lobulated of the liver outline, consistent with cirrhosis. Gallbladder and bile ducts: Gallbladder is contracted and is filled with multiple gallstones. No ductal dilation. Pancreas: 2.5 cm hypodensity seen in the pancreatic head with adjacent punctate rim calcifications. No ductal dilation. Spleen: Moderate splenomegaly. Adrenals: Unremarkable. No mass. Kidneys and ureters: Unremarkable. No obstructing stones. No hydronephrosis. Stomach and bowel: Unremarkable. No obstruction. No mucosal thickening. PELVIS: Appendix: No findings to suggest acute appendicitis. Bladder: Unremarkable. No stones. Reproductive: Unremarkable as visualized. ABDOMEN and PELVIS: Intraperitoneal space: Large ascites. No free air. Bones/joints: No acute fracture. No dislocation. Soft tissues: There is subcutaneous tissue edema seen in the abdominal wall. Lymph nodes: Unremarkable. No enlarged lymph nodes. IMPRESSION: 1. Cirrhotic liver with splenomegaly and large ascites 2. Focal hypodense lesion in the pancreatic head which can be further assessed on MRI study Electronically signed by: Ronnie Herrera MD 05/20/24 05:27 AM Chest X-Ray 05/20/24 03:56 XR chest 1V portable CLINICAL HISTORY: abdominal pain TECHNIQUE: Single frontal radiograph of the chest was obtained. Comparison: Comparison is made to chest radiographs 05/03/2024 FINDINGS: No lines and tubes are seen. Aortic valvular prosthesis is seen. The lungs are clear. No evidence of pleural effusion or pneumothorax. IMPRESSION: No acute chest disease. ACT 112: Negative or not required by law. Electronically signed by: Arik Flowers M.D. 05/20/2024 7:42 AM Paracentesis Ultrasound 05/20/24 08:00 PROCEDURE: Ultrasound-Guided Diagnostic/Therapeutic Paracentesis CLINICAL HISTORY: ascites MEDICATIONS: Subcutaneous Lidocaine 2%. PROCEDURE: The procedure itself was explained to the patient carefully. The patient was brought into the IR suite and a time-out was performed. The patient was positioned supine on the table. Preliminary ultrasound of the abdomen was performed to determine a safe needle entry site. The most appropriate approach for safe needle entry site was planned and the site for puncture was marked. The right lower quadrant was prepped and draped in the usual sterile fashion. Subcutaneous 2% lidocaine was used for local anesthesia along the expected needle tract. Under ultrasound-guidance, an 5 Somali Yueh needle-sheath was inserted carefully into the peritoneal space towards the abdominal ascites fluid collection. The needle was removed and the sheath was connected to tubing and a vacuum suction device. A total of 3200 cc of serous ascites was aspirated. The sheath was removed and a sterile dressing applied. The patient tolerated the procedure well without immediate complications. Sample of ascites was sent for analysis. IMPRESSION: Ultrasound-guided diagnostic/therapeutic paracentesis. Electronically signed by: Arik Flowers M.D. 05/20/2024 4:28 PM Renal Ultrasound 05/20/24 11:38 RENAL ULTRASOUND HISTORY: Acute hematuria hematuria, rule out obstruction COMPARISON: CT of same day FINDINGS: Right kidney: 11.7 cm. No hydronephrosis. Normal corticomedullary differentiation and cortical thickness. Left kidney: 12.1 cm. There is a 7 mm hypoechoic focus suggestive of a cyst noted within the interpolar distribution. No hydronephrosis. Normal corticomedullary differentiation and cortical thickness. Bladder: Partial distention with wall thickening and trabeculation. No definite Kan catheter identified within the bladder lumen. Layering intraluminal debris. Right ureteral jet not identified. Prostatomegaly. Cirrhosis with ascites. IMPRESSION: 1. No renal calculi or hydronephrosis. 2. Prostamegaly with evidence of chronic outlet obstruction. 3. Suggestion of layering hemorrhage within the urinary bladder lumen. A Kan balloon catheter is not visualized. ACT 112: Negative or not required by law. Electronically signed by: Yovany Gonzalez M.D. 05/20/2024 3:30 PM Portal Vein US 05/20/24 13:52 US duplex portal hepatic veins CLINICAL HISTORY: rule out Portal vein thromobosis TECHNIQUE: Grayscale, color and spectral waveform Doppler examination of the abdomen was performed. Comparison: None available at the time of this dictation. FINDINGS: The hepatic veins, portal veins, and IVC are patent with no thrombus identified. Flow is in the correct direction. No ascites is seen. The splenic vein is obscured by bowel. IMPRESSION: No portal vein thrombosis. ACT 112: Negative or not required by law. Electronically signed by: Arik Flowers M.D. 05/20/2024 7:58 PM KUB X-Ray 05/22/24 09:25 KUB HISTORY: Acute generalized abdominal pain with constipation r/o ileus, constipation COMPARISON: CT 05/20/2024 FINDINGS: Right upper quadrant TIPS shunt. Cholelithiasis. Moderate colonic fecal retention. Nonobstructive bowel gas pattern. No renal calculi. No ureteral calculi. No pneumoperitoneum or pneumatosis. No fracture. IMPRESSION: 1. Moderate fecal retention with nonobstructive bowel gas pattern. 2. Tips shunt. 3. Cholelithiasis. ACT 112: Negative or not required by law. The above report was generated using voice recognition software. It may contain grammatical, syntax or spelling errors. Electronically signed by: Yovany Gonzalez M.D. 05/22/2024 11:39 AM Abdomen/Pelvis CT 05/24/24 10:20 CT SCAN OF THE ABDOMEN AND PELVIS WITHOUT IV CONTRAST CLINICAL HISTORY: Right lower quadrant abdominal pain. COMPARISON STUDY: Prior abdominal CT scans, most recently dated 05/20/2024. TECHNIQUE: Unenhanced CT scan of the abdomen and pelvis is performed from the lung bases to the proximal femora. Images are reviewed in the axial, sagittal, and coronal planes. IV contrast was not administered as per the referring clinician. Note that the examination was performed in significantly suboptimal fashion without oral and IV contrast. A dose lowering technique was utilized adhering to the principles of ALARA. CT DOSE: 1285.6 mGy.cm FINDINGS: Lung bases: The heart is mildly enlarged noting a small pericardial effusion. The coronary arteries are densely calcified. There is diminished attenuation of the cardiac blood pool as compared to the myocardium suggesting anemia. There are small pleural effusions, right larger than left with bibasilar co nsolidation. This is significantly greater on the right. There is a small hiatal hernia. Gynecomastia is noted. Liver: The unenhanced liver is cirrhotic morphology and heterogeneous in attenuation. There is no intrahepatic biliary ductal dilatation. A TIPS catheter is in place. A subtle left lobe hepatic mass is again seen below the diaphragm on image #82. This not well delineated without IV contrast. Gallbladder: There are calcified gallstones without CT evidence of acute cholecystitis. Spleen: The spleen is enlarged measuring 16.1 cm in length. There is a splenorenal shunt. Pancreas: A 2.2 cm simple cystic lesion is again seen in the pancreatic head/uncinate. The unenhanced pancreas is otherwise grossly unremarkable. Adrenal glands: Unremarkable. Kidneys: The unenhanced kidneys demonstrate cortical atrophy and there are without hydronephrosis. . No renal calculi are identified A 1.6 cm hyperdense cyst is again seen in the anterior interpolar left kidney. Abdominal vasculature: The abdominal aorta is normal in course and caliber noting [id number] atherosclerotic calcification. Bowel: There is moderate to advanced colonic diverticulosis without CT evidence of acute diverticulitis. No bowel obstruction is seen. Fecal retention and liquid stool is noted in the colon. The appendix is well-visualized and normal. Peritoneum: There is a moderate volume of abdominopelvic ascites. No intraperitoneal free air is seen. There is a fat and fluid containing umbilical hernia. Lymphadenopathy: Prominent lymph nodes in the upper abdomen/shwetha hepatis are nonspecific and likely related to chronic liver disease. Pelvic viscera: The prostate gland is enlarged and heterogeneous. The bladder wall is significantly thickened and irregular indicating chronic outlet obstruction. There is infiltration around the bladder and prostate. Hyperdense material within the posterior bladder lumen on image #325 was not seen on 05/20/2024 and may represent blood clots. Skeletal structures: The skeletal structures are osteopenic. Again seen is a subacute superior endplate compression fracture of L2 with mild loss of height and minimal retropulsion of fragments. There is subacute/healing 3 column fracture of the T12 vertebral body. This is unchanged from recent prior examinations. A chronic superior endplate compression deformity of L1 is unchanged. No lytic or blastic lesions are seen. There is a sacral spondylosis. Degenerative change and partial fusion is seen in the sacroiliac joints. Arthritic change is seen in the hips. Soft tissues: There is body wall edema with asymmetric soft tissue edema in the right leg as compared to the left. IMPRESSION: 1. The liver is cirrhotic in morphology and heterogeneous in attenuation with a TIPS catheter in place. 2. Abdominal ascites, splenomegaly, and a splenorenal shunt indicate portal hypertension. 3. There is inflammation around the prostate and bladder which can be potentially seen with cystitis/prostatitis. Hyperdense material within the bladder lumen is new from previous and may represents blood clots. Correlate with clinical findings and urinalysis. 4. Right larger than left pleural effusions with dependent consolidation. This could represent atelectasis versus pneumonia/aspiration pneumonitis and clinical correlation will be required. 5. A subtle left lobe hepatic mass lesion is again noted. This is not well delineated without IV contrast. 6. Colonic diverticulosis without CT evidence of acute diverticulitis. 7. Cardiomegaly with advanced coronary artery atherosclerosis. 8. Cholelithiasis. 9. Again seen are subacute/healing fractures of T12 and L2. 10. There is asymmetric soft tissue edema in the right thigh as compared to the left. If there is concern for deep venous thrombosis this could be further assessed by ultrasound. 11. Additional findings as above. ACT 112: Negative or not required by law. Electronically signed by: Scott Yepez M.D. 05/24/2024 11:39 AM Venous Doppler Study 05/24/24 12:18 Exam(s): US VENOUS BILATERAL LOWER EXTREMITIES EXAM: US Duplex Bilateral Lower Extremities Veins CLINICAL HISTORY: Reason for exam: Rule out DVT. TECHNIQUE: Real-time duplex ultrasound scan of the bilateral lower extremity veins integrating B-mode two-dimensional vascular structure, Doppler spectral analysis, color flow Doppler imaging and compression. COMPARISON: No relevant prior studies available. FINDINGS: Right deep veins: Unremarkable. No DVT in the right common femoral, femoral, proximal deep femoral or popliteal veins. The veins demonstrate normal color flow, are normally compressible, with normal phasic flow and/or augmentation response. Right superficial veins: Unremarkable. No thrombus in the visualized right great saphenous vein. Left deep veins: Unremarkable. No DVT in the left common femoral, femoral, proximal deep femoral or popliteal veins. The veins demonstrate normal color flow, are normally compressible, with normal phasic flow and/or augmentation response. Left superficial veins: Unremarkable. No thrombus in the visualized left great saphenous vein. Soft tissues: No acute findings. No popliteal cyst. IMPRESSION: Negative bilateral lower extremity duplex venous ultrasound. No evidence of DVT. Electronically signed by: Jonny Fitzpatrick MD 05/25/24 01:50 AM Paracentesis Ultrasound 05/26/24 08:00 ULTRASOUND-GUIDED PARACENTESIS CLINICAL HISTORY: Ascites PROCEDURE: Procedure and risks were explained. Informed consent was obtained. A final timeout was completed. The abdomen was prepped and draped in sterile fashion. 1% lidocaine was utilized for skin anesthesia. Utilizing ultrasound guidance, a 5 Somali safety centesis catheter was advanced into the right lower quadrant pocket of ascites. Ultrasound images were obtained. A total of 3.6 L of ascites fluid was removed and discarded. The catheter was removed and Band-Aid applied. The patient tolerated the procedure well. Vital signs will be monitored postprocedure. IMPRESSION: Ultrasound-guided paracentesis as above. Performed, dictated, and signed by Luis Ellis PA-C; to be co-signed by Dr. Elan Alexander. Electronically signed by: Elan Alexander M.D. 05/26/2024 3:26 PM PG Care Time/CCT Total # of Minutes Spent Total Time Spent with Patient: Total time spent is greater than 50% in coordination of care (as documented) at patient's floor/unit and/or counseling patient: I spent 140 minutes overall addressing this complex case: 25 min in medical data review/discussion with referring provider(s) and/or preparation for the visit including extensive review of outside hospital records and [email or web address] EMR link 20 min in direct interaction with the patient/exam 60 min in Advance Care Planning/Goals of Care discussions as detailed above in note (must be >16min) 15 min in subsequent review and synthesis of assessment and plan 20 min communicating with other providers regarding the patient's case: Primary team Advanced Care Planning 06693 Advanced Care Planning 30 Min 91192 Advanced Care Planning Additional 30 [place] [address] IN/OBS CONSULT LVL 5,80M (25 - SIGNIFICANT, SEPARATELY IDENTIFIABLE ) Patient Type New Medical Decision Making High Complexity Diagnoses Abdominal pain, generalized R10.84 Advanced care planning/counseling discussion Z71.89 Palliative care by specialist Z51.5 Additional Codes Advanced Care Planning - 24302 Advanced Care Planning 30 Min: 76394 Advanced Care Planning 30 Min ([id number]) Advanced Care Planning - 17100 Advanced Care Planning Additional 30 Min: 79069 Advanced Care Planning Additional 30 Min ([id number])
[2024-05-27 06:17] LABS: Basophils # (auto) 0.01 K/uL (0.00-0.20); Basophils % (auto) 0.3 %; Eosinophils # (auto) 0.26 K/uL (0.00-0.50); Eosinophils % (auto) 7.1 %; Hemoglobin 7.9 g/dl (14.0-18.0); Immature Granulocytes # (auto) 0.01 K/uL (0.01-0.20); Immature Granulocytes % (auto) 0.3 %; Lymphocytes % (auto) 13.6 %; Mean Corpuscular Hemoglobin 32.2 pg (25.0-34.0); Mean Corpuscular Hgb Conc 32.9 g/dL (32.0-36.0); Mean Platelet Volume 11.4 fL (9.4-12.4); Monocytes # (auto) 0.26 K/uL (0.11-0.59); Monocytes % (auto) 7.1 %; Neutrophils # (auto) 2.63 K/uL (1.40-6.50); Neutrophils % (auto) 71.6 %; Platelet Count 63 K/uL (130-400); RDW Coefficient of Variation 18.6 % (11.5-14.5); RDW Standard Deviation 66.3 fL (36.4-46.3); Red Blood Count 2.45 M/uL (4.70-6.10); White Blood Count 3.67 K/ul (4.8-10.8)
[2024-05-27 06:37] LABS: BUN Creatinine Ratio 17.2 (10-20); Calcium 8.2 mg/dl (8.6-10.3); Est GFR (African American) 29.8 ml/min; Est GFR (Non-African American) 25.7 ml/min; Potassium 4.6 mmol/L (3.5-5.1)
[2024-05-27 06:52] LABS: Tear Drop Cells 1+
--- NOTE | 2024-05-27 14:43 | Nephrology Progress Note ---
Date of Service May 27, 2024 Assessment & Plan (1) LUCRETIA (acute kidney injury): Plan: today stable nonoliguric Stage 2 acute kidney injury in the setting of worsening volume overload from liver disease and requiring more frequent paracenteses recently after his diuretics were held. baseline creatinine 1.2-1.3. Ischemic ATN is likeliest dx versus prerenal but many are possible; cannot R/O HRS. Urinalysis notable for ketonuria, 3+ blood and protein with specific gravity 1026 and a pH of 5; He has 11-20 white cells per high-powered field and some leukocyte Estrace; also some amorphous sediment present. Repeat UA present if I read lab report correctly w/ granular casts, supporting ATN. No urinary tract infection. Significance of proteinuria difficult to establish in patient with long history of radiation cystitis. Does have elevated urine sodium, also likely challenging to interpret in the setting. However lack of infection is reassuring. No obstructive process. Follows with Dr. Herbert in clinic and will need f/u w/ him after d/c. No indication for dialysis -- still volume overloaded but chemistries acceptable>> and he's not a candidate for dialysis should the need arise given liver issues and that he's not a liver txplt candidate; he was surprised to hear this; has also thought a lot about end of life planning but did ask about hospice. -Appreciate goals of care discussion w/ pt and family w/ palliative; no change in resuscitation status >>>This evening will resume furosemide 40 mg with 100 mg Aldactone both p.o. daily>> had been on hold b/c of planned paracentesis Continue conservative management by avoiding NSAIDs and IV contrast unless life or limb saving Daily basic metabolic panel Daily standing weight: Standing weights only ordered - cont to limit fluids to 1.5 L and low na diet - May need paracentesis 1-2 times weekly moving forward w/ GI to manage albumin, lytes in thsi context (2) Abdominal pain: Plan: constipation improved For outpatient endoscopic ultrasound to evaluate possible pancreatic head mass (3) Acute on chronic blood loss anemia: Plan: s/p pRBC this admission; hgb stable today Okay to use diuretics as above. Admission and Anticipated Discharge Date Admission Date: May 20, 2024 Subjective Status post 3.6 L paracentesis yesterday complicated by back spasms; no such worries on evening round ; no sob; feels more comfortable after tap; son at bedside Review of Systems 2 Review of Systems: All systems reviewed & are unremarkable except as noted in Subjective Physical Exam 2 Constitutional: well developed, + frail appearing and cooperative; no acute distress Eyes: EOM intact bilaterally ENMT: Ears: no external ear abnormality Nose: no external nose abnormality Mouth: + dry oral mucous membranes Neck: no nuchal rigidity Respiratory: normal respiratory effort Auscultation: + diminished lung sounds Cardiovascular: Rate/Rhythm: regular rate and regular rhythm Extremities: + edema (trace bilateral lower extremities to the knees) Gastrointestinal (Abdomen): Inspection/Auscultation: normal bowel sounds P ercussion/Palpation: + abdomen tender (Nontender except focally left lower quadrant without guarding or rebound), abdomen soft and + ascites Musculoskeletal: Extremities: strength 5/5 throughout Skin: no rashes, warm and dry + jaundice (Slight) Psychiatric: Orientation: alert and oriented x 3 Results & Data Vital Signs (Past 12 Hours) Vital Signs Temp Pulse Pulse Resp BP BP Pulse Ox 05/27/24 14:00 36.5 C 63 18 135/65 96 05/27/24 10:52 36.5 C 63 16 156/64 H 96 05/27/24 09:00 05/27/24 07:30 66 05/27/24 07:26 36.8 C 65 17 152/65 H 94 05/27/24 03:03 36.9 C 68 18 151/60 H 94 O2 Del Method 05/27/24 14:00 Room Air 05/27/24 10:52 Room Air 05/27/24 09:00 Room Air 05/27/24 07:30 05/27/24 07:26 Room Air 05/27/24 03:03 Room Air Laboratory Results 05/27/24 05:50 05/27/24 05:50
--- NOTE | 2024-05-27 16:41 | Hospitalist Progress Note ---
Date of Service May 27, 2024 Assessment & Plan (1) Abdominal ascites: (2) LUCRETIA (acute kidney injury): Plan Patient presented with abdominal pain and distention. History of decompensated liver cirrhosis; currently on paracentesis every 2 weeks. History of cirrhosis status post TIPS. CT abdomen pelvis showed cirrhotic liver with splenomegaly and large ascites. Focal hypodense lesion in pancreatic head. Chest x-ray on admission; no acute finding Renal ultrasound showed prostatomegaly with evidence of chronic outlet obstruction. Layering hemorrhage within urinary bladder lumen Portal vein ultrasound did not show any thrombosis. Repeat CT abdomen and pelvis on May 24, 2023 do not show acute intra-abdominal findings. Inflammation seen around prostate and bladder. Status post therapeutic paracentesis with removal of 3200 cc of fluids on 05/20/2024 and 3600 on 05/26/2024 Studies do not suggest spontaneous bacterial peritonitis. UA s/o UTI, Urine culturenegative Blood culture NG48 hours, pt on zosyn 05/24. will c/w to complete the course. s/p 100 g of 25% albumin for possible hepatorenal syndrome on May 21 and May 22. Creatinine uptrending, nephro following, appreciate recs. baseline of 1.5 Labs in AM. GI consulted given CT abdomen/pelvis findings; they recommend outpatient EUS for evaluation of possible pancreatic head mass. Continue lactulose Acute blood loss anemia Hematuria secondary to radiation cystitis Possible UTI History of prostate cancer s/p radiation complicated by radiation cystitis Recently [place] in [facility] [place] May 08 to May 12 where he had cystourethroscopy with clot evacuation and fulguration. Presented with hematuria again; no clots seen. Renal usg as above Hemoglobin dropped down to 5.9 g/dL s/p 1 unit of packed RBCs on 05/22 Continue to monitor hematuria, currently pt reports clear urine. Continue to monitor for hematuria. History of radiation cystitis status post cystourethroscopy with clot evacuation and fulguration. Chronic conditions Recurrent hepatocellular carcinoma status post IR embolization DM2 insulin requiring, well-controlled as of recent hemoglobin A1c of 5.6, January 2024 history GAVE/esophageal varices/portal hypertensive gastropathy/radiation proctitis/diverticulosis restrictive lung disease as per records/pulmonary hypertension, baseline lung status. BPH/prostate cancer status post radiation Palliative consulted for goals of care discussion. Patient to follow-up with outpatient palliative care after discharge Full code DVT prophylaxis SCDs Please note the above document was generated using voice recognition software. It may contain grammatical, syntax or spelling errors. Any formal questions or concerns about the content, text or information contained within the body of this dictation should be directly addressed to the provider for clarification Admission and Anticipated Discharge Date Admission Date: May 20, 2024 Subjective Patient seen and examined at bedside. He reports that he is feeling much better. Abdominal pain has resolved No significant event overnight Physical Exam Physical Exam: Constitutional: WD/WN, vitals as above, NAD, sitting up in bed, pleasant, conversing easily Respiratory: normal respiratory effort, lungs clear to auscultation, no wheeze, rales, rhonchi. Normal insp/exp effort, no accessory muscle use Cardiovascular: RRR, no murmur, no edema Vessels: no JVD or carotid bruit Chest: normal inspection of chest Abdomen: distended; Tenderness in right lower quadrant improved. Bowel sound present Musculoskeletal: no cyanosis or clubbing, extremities motor strength 5/5 Skin: no rashes, warm and dry normal turgor Neurologic: PERRL, EOMI, accommodation nl, no face palsy, no dysarthria CN's II- XI intact bilaterally and moves all extremities Psychiatric: A+Ox3, euthymic affect Results & Data Results & Data Vital Signs (Past 12 Hours) Vital Signs Temp Pulse Pulse Resp BP BP Pulse Ox 05/27/24 15:32 36.5 C 62 18 132/61 98 05/27/24 15:00 36.7 C 64 18 130/58 L 97 05/27/24 14:00 36.5 C 63 18 135/65 96 05/27/24 10:52 36.5 C 63 16 156/64 H 96 05/27/24 09:00 05/27/24 07:30 66 05/27/24 07:26 36.8 C 65 17 152/65 H 94 O2 Del Method 05/27/24 15:32 Room Air 05/27/24 15:00 Room Air 05/27/24 14:00 Room Air 05/27/24 10:52 Room Air 05/27/24 09:00 Room Air 05/27/24 07:30 05/27/24 07:26 Room Air (1) Abdominal ascites Ascites type: other type Qualified Code(s): R18.8 - Other ascites
[2024-05-28 08:07] LABS: Hematocrit (blood only) 22.3 % (42.0-52.0); Hemoglobin 7.1 g/dl (14.0-18.0); Mean Corpuscular Hgb Conc 31.8 g/dL (32.0-36.0); Mean Corpuscular Volume 100.5 fL (80.0-100.0); Mean Platelet Volume 12.5 fL (9.4-12.4); Platelet Count 54 K/uL (130-400); RDW Standard Deviation 69.2 fL (36.4-46.3); Red Blood Count 2.22 M/uL (4.70-6.10); White Blood Count 3.14 K/ul (4.8-10.8)
[2024-05-28 08:26] LABS: BUN Creatinine Ratio 16.3 (10-20); Calcium 8.4 mg/dl (8.6-10.3); Creatinine Clr Calc Pharmacy 24.2 ml/min; Est GFR (African American) 25.1 ml/min; Est GFR (Non-African American) 21.6 ml/min; Magnesium 1.8 mg/dl (1.7-2.4); Phosphorus 3.3 mg/dl (2.5-4.9); Potassium 4.5 mmol/L (3.5-5.1)
[2024-05-28] MEDS ORDERED: SODIUM CHLORIDE 0.9% 250 ML IV PRN (11:54)
--- NOTE | 2024-05-28 14:53 | Hospitalist Progress Note ---
Date of Service May 28, 2024 Assessment & Plan (1) Abdominal ascites: (2) LUCRETIA (acute kidney injury): Plan Patient presented with abdominal pain and distention. History of decompensated liver cirrhosis; currently on paracentesis every 2 weeks. History of cirrhosis status post TIPS. CT abdomen pelvis showed cirrhotic liver with splenomegaly and large ascites. Focal hypodense lesion in pancreatic head. Chest x-ray on admission; no acute finding Renal ultrasound showed prostatomegaly with evidence of chronic outlet obstruction. Layering hemorrhage within urinary bladder lumen Portal vein ultrasound did not show any thrombosis. Repeat CT abdomen and pelvis on May 24, 2023 do not show acute intra-abdominal findings. Inflammation seen around prostate and bladder. Status post therapeutic paracentesis with removal of 3200 cc of fluids on 05/20/2024 and 3600 on 05/26/2024 Studies do not suggest spontaneous bacterial peritonitis. UA s/o UTI, Urine culturenegative Blood culture NG48 hours, pt on zosyn 05/24. will c/w to complete the course. s/p 100 g of 25% albumin for possible hepatorenal syndrome on May 21 and May 22. Creatinine uptrending, nephro following, appreciate recs. baseline of 1.5 Labs in AM. GI consulted given CT abdomen/pelvis findings; they recommend outpatient EUS for evaluation of possible pancreatic head mass. Continue lactulose Acute blood loss anemia Hematuria secondary to radiation cystitis Possible UTI History of prostate cancer s/p radiation complicated by radiation cystitis Recently admitted in [facility] [place] from May 08 to May 12 where he had cystourethroscopy with clot evacuation and fulguration. Presented with hematuria again; no clots seen. Renal usg as above Hemoglobin dropped down to 5.9 g/dL s/p 1 unit of packed RBCs on 05/22. will transfuse 1 unit today as Hb 7.1. Continue to monitor hematuria, currently pt reports clear urine. Continue to monitor for hematuria. History of radiation cystitis status post cystourethroscopy with clot evacuation and fulguration. Chronic conditions Recurrent hepatocellular carcinoma status post IR embolization DM2 insulin requiring, well-controlled as of recent hemoglobin A1c of 5.6, January 2024 history GAVE/esophageal varices/portal hypertensive gastropathy/radiation proctitis/diverticulosis restrictive lung disease as per records/pulmonary hypertension, baseline lung status. BPH/prostate cancer status post radiation Palliative consulted for goals of care discussion. Patient to follow-up with outpatient palliative care after discharge Full code DVT prophylaxis SCDs Please note the above document was generated using voice recognition software. It may contain grammatical, syntax or spelling errors. Any formal questions or concerns about the content, text or information contained within the body of this dictation should be directly addressed to the provider for clarification Admission and Anticipated Discharge Date Admission Date: May 20, 2024 Subjective Patient seen and examined at bedside. He reports that he is feeling much better. Abdominal pain has resolved No significant event overnight, reports one time blood in stool, reports intermittent chronic issues of blood in stool/had multiple "anal procedures" in the past. Will monitor. Physical Exam Physical Exam: Constitutional: WD/WN, vitals as above, NAD, sitting up in bed, pleasant, conversing easily Respiratory: normal respiratory effort, lungs clear to auscultation, no wheeze, rales, rhonchi. Normal insp/exp effort, no accessory muscle use Cardiovascular: RRR, no murmur, no edema Vessels: no JVD or carotid bruit Chest: normal inspection of chest Abdomen: distended; Tenderness in right lower quadrant improved. Bowel sound present Musculoskeletal: no cyanosis or clubbing, extremities motor strength 5/5 Skin: no rashes, warm and dry normal turgor Neurologic: PERRL, EOMI, accommodation nl, no face palsy, no dysarthria CN's II- XI intact bilaterally and moves all extremities Psychiatric: A+Ox3, euthymic affect Results & Data Results & Data Vital Signs (Past 12 Hours) Vital Signs Temp Pulse Pulse Resp BP BP BP 05/28/24 14:20 37.1 C 70 18 121/54 L 05/28/24 14:05 36.8 C 64 16 130/55 L 05/28/24 14:04 36.8 C 66 18 120/57 L 05/28/24 13:41 36.8 C 67 21 122/52 L 05/28/24 13:31 69 21 122/52 L 05/28/24 11:07 37.0 C 64 16 136/49 L 05/28/24 07:35 36.9 C 72 18 125/47 L 05/28/24 07:30 68 05/28/24 03:09 37.1 C 67 18 119/49 L Pulse Ox O2 Del Method 05/28/24 14:20 90 05/28/24 14:05 96 05/28/24 14:04 97 05/28/24 13:41 97 05/28/24 13:31 97 Room Air 05/28/24 11:07 99 Room Air 05/28/24 07:35 91 Room Air 05/28/24 07:30 05/28/24 03:09 93 Room Air (1) Abdominal ascites Ascites type: other type Qualified Code(s): R18.8 - Other ascites
--- NOTE | 2024-05-28 15:13 | Nephrology Progress Note ---
Date of Service May 28, 2024 Assessment & Plan (1) Acute kidney injury superimposed on chronic kidney disease: Plan: today stable nonoliguric Stage 2 acute kidney injury in the setting of worsening volume overload from liver disease and requiring more frequent paracenteses recently after his diuretics were held. baseline creatinine 1.2-1.3. Ischemic ATN is likeliest dx versus prerenal etiology. Urinalysis notable for ketonuria, 3+ blood and protein with specific gravity 1026 and a pH of 5; He has 11-20 white cells per high-powered field and some leukocyte Estrace; also some amorphous sediment present. Repeat UA present if I read lab report correctly w/ granular casts, supporting ATN. No urinary tract infection. Significance of proteinuria difficult to establish in patient with long history of radiation cystitis. Does have elevated urine sodium, also likely challenging to interpret in the setting. However lack of infection is reassuring. No obstructive process. Follows with Dr. Herbert in clinic and will need f/u w/ him after d/c. No indication for dialysis -- still volume overloaded but chemistries acceptable>> and he's not a candidate for dialysis should the need arise given liver issues and that he's not a liver txplt candidate; he was surprised to hear this; has also thought a lot about end of life planning but did ask about hospice; established w/ palliative and for OP f/u with them; changed resus status full > DNR/DNI renal function a bit worse today and will expect this given obligate paracentesis and diuretics >>>continue furosemide 40 mg with 100 mg Aldactone both p.o. daily>> plan to hold these day of and day after planned paracentesis moving forward -recommend bmp every 2 wks at hospital d/c x 4 Continue conservative management by avoiding NSAIDs and IV contrast unless life or limb saving Daily basic metabolic panel Daily standing weight: Standing weights only ordered - cont to limit fluids to 1.5 L and low na diet - May need paracentesis 1-2 times weekly moving forward w/ GI to manage albumin, lytes in this context Admission and Anticipated Discharge Date Admission Date: May 20, 2024 Subjective seen on mid AM rounds. feels improved today > reciting post d/c appts; for pRBC today; no c/o increasing abd girth or worsening edema, sob. Review of Systems 2 Review of Systems: All systems reviewed & are unremarkable except as noted in Subjective Physical Exam 2 Constitutional: well developed and well nourished Eyes: EOM intact bilaterally ENMT: Ears: no external ear abnormality Nose: no external nose abnormality Mouth: + dry oral mucous membranes Neck: no nuchal rigidity Respiratory: normal respiratory effort Auscultation: + diminished lung sounds Gastrointestinal (Abdomen): Inspection/Auscultation: normal bowel sounds P ercussion/Palpation: abdomen soft; abdomen nontender Musculoskeletal: Extremities: strength 5/5 throughout Skin: no rashes, warm and dry Neurologic: ramirez, fluent speech, no tremor Results & Data Vital Signs (Past 12 Hours) Vital Signs Temp Pulse Pulse Resp BP BP BP 05/28/24 14:50 36.8 C 67 18 122/54 L 05/28/24 14:20 37.1 C 70 18 121/54 L 05/28/24 14:05 36.8 C 64 16 130/55 L 05/28/24 14:04 36.8 C 66 18 120/57 L 05/28/24 13:41 36.8 C 67 21 122/52 L 05/28/24 13:31 69 21 122/52 L 05/28/24 11:07 37.0 C 64 16 136/49 L 05/28/24 07:35 36.9 C 72 18 125/47 L 05/28/24 07:30 68 05/28/24 03:09 37.1 C 67 18 119/49 L Pulse Ox O2 Del Method 05/28/24 14:50 94 05/28/24 14:20 90 05/28/24 14:05 96 05/28/24 14:04 97 05/28/24 13:41 97 05/28/24 13:31 97 Room Air 05/28/24 11:07 99 Room Air 05/28/24 07:35 91 Room Air 05/28/24 07:30 05/28/24 03:09 93 Room Air Laboratory Results 05/28/24 07:24 05/28/24 07:24
[2024-05-29 08:03] LABS: Hematocrit (blood only) 24.8 % (42.0-52.0); Hemoglobin 7.9 g/dl (14.0-18.0); Mean Corpuscular Hemoglobin 31.5 pg (25.0-34.0); Mean Corpuscular Hgb Conc 31.9 g/dL (32.0-36.0); Mean Corpuscular Volume 98.8 fL (80.0-100.0); Mean Platelet Volume 12.5 fL (9.4-12.4); Platelet Count 65 K/uL (130-400); RDW Coefficient of Variation 19.3 % (11.5-14.5); Red Blood Count 2.51 M/uL (4.70-6.10); White Blood Count 3.73 K/ul (4.8-10.8)
[2024-05-29 08:09] LABS: BUN Creatinine Ratio 14.4 (10-20); Calcium 8.6 mg/dl (8.6-10.3); Creatinine Clr Calc Pharmacy 22.4 ml/min; Est GFR (African American) 22.8 ml/min; Est GFR (Non-African American) 19.6 ml/min; Magnesium 1.7 mg/dl (1.7-2.4); Phosphorus 3.4 mg/dl (2.5-4.9); Potassium 4.6 mmol/L (3.5-5.1)
--- NOTE | 2024-05-29 13:52 | Hospitalist Progress Note ---
Date of Service May 29, 2024 Assessment & Plan (1) Abdominal ascites: (2) LUCRETIA (acute kidney injury): Plan Patient presented with abdominal pain and distention. History of decompensated liver cirrhosis; currently on paracentesis every 2 weeks. History of cirrhosis status post TIPS. CT abdomen pelvis showed cirrhotic liver with splenomegaly and large ascites. Focal hypodense lesion in pancreatic head. Chest x-ray on admission; no acute finding Renal ultrasound showed prostatomegaly with evidence of chronic outlet obstruction. Layering hemorrhage within urinary bladder lumen Portal vein ultrasound did not show any thrombosis. Repeat CT abdomen and pelvis on May 24, 2023 do not show acute intra-abdominal findings. Inflammation seen around prostate and bladder. Status post therapeutic paracentesis with removal of 3200 cc of fluids on 05/20/2024 and 3600 on 05/26/2024 Studies do not suggest spontaneous bacterial peritonitis. UA s/o UTI, Urine culturenegative Blood culture NG48 hours, pt on zosyn 05/24. will c/w to complete the course. s/p 100 g of 25% albumin for possible hepatorenal syndrome on May 21 and May 22. Creatinine uptrending, baseline of 1.5. D/w nephro, ok to dc from their POV, f/u nephro in 1-2 weeks. Labs in AM. Nephro DC recs: c/w furosemide 40 mg and Aldactone 100 mg daily. Hold these day of and day after planned paracentesis. BMP q2 wks x 4. f/u nephro in 1-2 weeks. FR 1.5L, Na <2g/d. GI evaled given CT abdomen/pelvis findings; they recommend outpatient EUS for evaluation of possible pancreatic head mass. Continue lactulose Acute blood loss anemia Hematuria secondary to radiation cystitis Possible UTI History of prostate cancer s/p radiation complicated by radiation cystitis Recently admitted in [facility] [place] from May 08 to May 12 where he had cystourethroscopy with clot evacuation and fulguration. Presented with hematuria again; no clots seen. Renal usg as above Hemoglobin dropped down to 5.9 g/dL s/p 1 unit of packed RBCs on 05/22 and 1 unit on 05/28 Continue to monitor hematuria, currently pt reports clear urine. Continue to monitor for hematuria. History of radiation cystitis status post cystourethroscopy with clot evacuation and fulguration. Chronic conditions Recurrent hepatocellular carcinoma status post IR embolization DM2 insulin requiring, well-controlled as of recent hemoglobin A1c of 5.6, [facility] 2023 history GAVE/esophageal varices/portal hypertensive gastropathy/radiation proctitis/diverticulosis restrictive lung disease as per records/pulmonary hypertension, baseline lung status. BPH/prostate cancer status post radiation Palliative consulted for goals of care discussion. Patient to follow-up with outpatient palliative care after discharge Full code DVT prophylaxis SCDs Dispo: likely [place]. Please note the above document was generated using voice recognition software. It may contain grammatical, syntax or spelling errors. Any formal questions or concerns about the content, text or information contained within the body of this dictation should be directly addressed to the provider for clarification Admission and Anticipated Discharge Date Admission Date: May 20, 2024 Subjective Patient seen and examined at bedside. He reports that he is feeling much better. Abdominal pain has resolved No significant event overnight, no further blood in stool. Physical Exam Physical Exam: Constitutional: WD/WN, vitals as above, NAD, sitting up in bed, pleasant, conversing easily Respiratory: normal respiratory effort, lungs clear to auscultation, no wheeze, rales, rhonchi. Normal insp/exp effort, no accessory muscle use Cardiovascular: RRR, no murmur, no edema Vessels: no JVD or carotid bruit Chest: normal inspection of chest Abdomen: distended; Tenderness in right lower quadrant improved. Bowel sound present Musculoskeletal: no cyanosis or clubbing, extremities motor strength 5/5 Skin: no rashes, warm and dry normal turgor Neurologic: PERRL, EOMI, accommodation nl, no face palsy, no dysarthria CN's II- XI intact bilaterally and moves all extremities Psychiatric: A+Ox3, euthymic affect Results & Data Results & Data Vital Signs (Past 12 Hours) Vital Signs Temp Pulse Pulse Resp BP Pulse Ox O2 Del Method 05/29/24 11:48 36.7 C 77 16 157/56 H 97 Room Air 05/29/24 08:22 37.1 C 69 16 146/56 H 92 Room Air 05/29/24 07:32 70 05/29/24 03:30 37.5 C 70 16 154/73 H 93 Room Air (1) Abdominal ascites Ascites type: other type Qualified Code(s): R18.8 - Other ascites
[2024-05-30 07:27] LABS: Hematocrit (blood only) 25.4 % (42.0-52.0); Hemoglobin 8.2 g/dl (14.0-18.0); Mean Corpuscular Hemoglobin 31.8 pg (25.0-34.0); Mean Corpuscular Hgb Conc 32.3 g/dL (32.0-36.0); Mean Corpuscular Volume 98.4 fL (80.0-100.0); Mean Platelet Volume 11.6 fL (9.4-12.4); Platelet Count 71 K/uL (130-400); RDW Standard Deviation 68.5 fL (36.4-46.3); Red Blood Count 2.58 M/uL (4.70-6.10); White Blood Count 3.76 K/ul (4.8-10.8)
[2024-05-30 07:33] LABS: BUN Creatinine Ratio 14.5 (10-20); Calcium 8.5 mg/dl (8.6-10.3); Creatinine Clr Calc Pharmacy 20.7 ml/min; Est GFR (African American) 20.7 ml/min; Est GFR (Non-African American) 17.8 ml/min; Magnesium 1.6 mg/dl (1.7-2.4); Potassium 4.9 mmol/L (3.5-5.1)
[2024-05-30] MEDS: MAGNESIUM SULFATE / D5W 1 GM/100 ML BAG IV SCH (11:12)
[2024-05-30 11:42] VITALS: TEMP 98.1; O2SAT 99
--- NOTE | 2024-05-30 12:05 | Discharge Summary ---
Date of Service May 30, 2024 Admission HPI Per Admitting Provider History obtained from patient and records. Limited history from patient secondary to lethargic state post Ativan administration at the ER. 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 Multiple admissions (almost monthly) since 2021. Recent [facility] confinement 05/03-05/08 for hematuria secondary to radiation cystitis. Patient transferred to [facility] for further evaluation. Subsequent confinement 05/08-05/12. Continued CBI later followed by cystourethroscopy with clot evacuation and fulguration. Patient home Lasix held on discharge because of kidneys as per patient. Patient noted increased fluid retention/abdominal distention without pain following discharge from [facility]. Patient consulted ER 5 days ago. Patient noted to have ascites and abdominal exam. Subsequent IR guided ultrasound-guided paracentesis resulting in removal of 5 L of acetic fluid. Patient discharged home from the ER. Patient noted gradual increasing abdominal distention 2 days ago. Achy abdominal pain since last night. No fever, no chills. No unusual chest pain, no SOB. Patient consulted ER for evaluation. IV ceftriaxone administered at the ER. 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 Admission Exam Per Admitting Provider GENERAL: uncomfortable, no respiratory distress SKIN: Pallor, warm HEENT: Alopecia, pale palpebral conjunctivae, no ptosis, dry buccal mucosa NECK : Supple, no tenderness CHEST : Decreased breath sounds, no tenderness HEART : RRR, no obvious murmurs ABDOMEN: Marked abdominal distention, fluid wave, generalized abdominal tenderness EXTREMITIES : Minimal LE swelling, no overt right foot tenderness NEUROLOGIC : Coherent, no facial asymmetry, gait and stance not assessed Principal Diagnosis Acute kidney injury Abdominal ascites Acute blood loss anemia Discharge Exam Constitutional: WD/WN, vitals as above, NAD, sitting up in bed, pleasant, conversing easily Respiratory: normal respiratory effort, lungs clear to auscultation, no wheeze, rales, rhonchi. Normal insp/exp effort, no accessory muscle use Cardiovascular: RRR, no murmur, no edema Vessels: no JVD or carotid bruit Chest: normal inspection of chest Abdomen: distended; Tenderness in right lower quadrant improved. Bowel sound present Musculoskeletal: no cyanosis or clubbing, extremities motor strength 5/5 Skin: no rashes, warm and dry normal turgor Neurologic: PERRL, EOMI, accommodation nl, no face palsy, no dysarthria CN's II- XI intact bilaterally and moves all extremities Psychiatric: A+Ox3, euthymic affect Discharge Data Allergies Allergy/AdvReac Type Severity Reaction Status Date / Time No Known Allergies Allergy Mild Verified 05/15/24 14:57 Consultations 05/20/24 05:32 ED Decision to Admit Stat 05/20/24 10:38 Consult Gastroenterology Routine 05/21/24 12:51 Consult Nephrology Routine 05/25/24 13:18 Consult Palliative Care Routine Ordered Studies 05/20/24 03:56 CT Abd and Pelvis [CT abd pelvis wo con] Stat 05/20/24 08:00 IR paracentesis abd w/img US Routine 05/20/24 11:38 US Renal Bladder [US renal/blad retro comp] Urgent 05/20/24 13:52 US duplex portal hepatic veins Routine 05/24/24 10:20 CT abd pelvis wo con Urgent 05/24/24 12:18 US venous duplex leg [US venous doppler LE BI] Urgent 05/26/24 08:00 IR paracentesis abd w/img US Routine Hospital Course (1) Abdominal ascites: (2) LUCRETIA (acute kidney injury): Plan Patient presented with abdominal pain and distention. History of decompensated liver cirrhosis; currently on paracentesis every 2 weeks. History of cirrhosis status post TIPS. CT abdomen pelvis showed cirrhotic liver with splenomegaly and large ascites. Focal hypodense lesion in pancreatic head. Chest x-ray on admission; no acute finding Renal ultrasound showed prostatomegaly with evidence of chronic outlet obstruction. Layering hemorrhage within urinary bladder lumen Portal vein ultrasound did not show any thrombosis. Repeat CT abdomen and pelvis on May 24, 2023 do not show acute intra-abdominal findings. Inflammation seen around prostate and bladder. Status post therapeutic paracentesis with removal of 3200 cc of fluids on 05/20/2024 and 3600 on 05/26/2024 Studies do not suggest spontaneous bacterial peritonitis. UA s/o UTI, Urine culturenegative Blood culture NG48 hours, pt on zosyn 05/24. Completed the course for uti. s/p 100 g of 25% albumin for possible hepatorenal syndrome on May 21 and May 22. Creatinine uptrending, baseline of 1.5. D/w nephro 05/29 and 05/30, ok to dc from their POV, f/u nephro in 1-2 weeks. Labs as OP. Pt instructed. Nephro DC recs: c/w furosemide 40 mg and Aldactone 100 mg daily. Hold these day of and day after planned paracentesis. BMP q2 wks x 4. f/u nephro in 1-2 weeks. FR 1.5L, Na <2g/d. GI evaled given CT abdomen/pelvis findings; they recommend outpatient EUS for evaluation of possible pancreatic head mass. Continue lactulose Acute blood loss anemia Hematuria secondary to radiation cystitis Possible UTI History of prostate cancer s/p radiation complicated by radiation cystitis Recently admitted in [facility] from May 08 to May 12 where he had cystourethroscopy with clot evacuation and fulguration. Presented with hematuria again; no clots seen. Renal usg as above Hemoglobin dropped down to 5.9 g/dL s/p 1 unit of packed RBCs on 05/22 and 1 unit on 05/28 Continue to monitor hematuria, currently pt reports clear urine. Continue to monitor for hematuria. History of radiation cystitis status post cystourethroscopy with clot evacuation and fulguration. Chronic conditions Recurrent hepatocellular carcinoma status post IR embolization DM2 insulin requiring, well-controlled as of recent hemoglobin A1c of 5.6, January 2024 history GAVE/esophageal varices/portal hypertensive gastropathy/radiation proctitis/diverticulosis restrictive lung disease as per records/pulmonary hypertension, baseline lung status. BPH/prostate cancer status post radiation Palliative consulted for goals of care discussion. Patient to follow-up with outpatient palliative care after discharge Full code DVT prophylaxis SCDs Dispo: likely [place]. Patient is being discharged home with following instruction at the point of discharge. Follow-up with your primary care physician within a week time and likely you will need labs CBC/CMP/magnesium/phosphorus. For your acute kidney injury, you were evaluated by nephrology. Continue taking Lasix 40 mg daily and Aldactone 100 mg daily. You will need BMP every 2 weeks for 4 weeks, coordinate w/ your nephrology office to set up the tests. Follow- up with nephrology in 1 to 2 weeks time. Maintain fluid restriction of 1.5 L/day and maintain low-sodium diet of less than 2 g/day. Follow-up with GI and possible evaluation for outpatient EUS for pancreatic head mass. Coordinate with your PCP office to set up the referral. Coordinate with your outpatient clinic to get paracentesis every 1 to 2 weeks. You will need to hold your Lasix and Aldactone on the day of planned paracentesis and the day after paracentesis. Then you can resume your Lasix and Aldactone after that. Follow-up with urology as prior. Follow-up with outpatient palliative care. Coordinate with your PCP office to set up the referral. Take your medications as prescribed. Please make sure that you are able to get your medications today by calling your pharmacy before you leave the hospital so that your treatment continuity is not broken. Please note the above document was generated using voice recognition software. It may contain grammatical, syntax or spelling errors. Any formal questions or concerns about the content, text or information contained within the body of this dictation should be directly addressed to the provider for clarification Home Health Attestation I certify that this patient is under my care and that I, or a physicians health care assistant working with me, had a face to-face encounter that meets the home health [id number] encounter requirements with this patient. The encounter with the patient was in whole, or in part, for the following medical condition, which is the primary reason for home health care (list medical condition): I certify that, based on my findings, the following services are medically necessary home health services: My clinical findings support the need for the above services because: Further, I certify that my clinical findings support that this patient is homebound (i.e. absences from home require considerable and taxing effort and are for medical reasons or scientology services or infrequently or of short duration when for other reasons) because: Certification for Home Health Services: Based on the above findings, I certify that this patient is confined to the home and needs intermittent alf care, physical therapy and/or speech therapy or continues to need occupational therapy. The patient is under my care, and I have initiated the establishment of the plan of care. This patient will be followed by a physician who will periodically review the plan of care. Total Time Total Time Spent Total Time Spent (In Minutes): 45 Discharge Plan Discharge Items Patient Disposition: Home - Home Health Services Reason For Visit: decompensated cirrhosis Discharge Diagnosis: Acute kidney injury Abdominal ascites Acute blood loss anemia Activity: Resume your previous activity Non-emergency contact: Primary Care Provider Call non-emergency contact if: you have any medication questions and your symptoms worsen Follow-up/Referrals: Kristen Vences, [Primary Care Provider] - Diet: Carb Consistent or DM2 and Low Sodium (2gm) Fluids: 1500ml (6 cups) Addtl Attending Provider Instructions: Follow-up with your primary care physician within a week time and likely you will need labs CBC/CMP/magnesium/phosphorus. For your acute kidney injury, you were evaluated by nephrology. Continue taking Lasix 40 mg daily and Aldactone 100 mg daily. You will need BMP every 2 weeks for 4 weeks, coordinate w/ your nephrology office to set up the tests. Follow- up with nephrology in 1 to 2 weeks time. Maintain fluid restriction of 1.5 L/day and maintain low-sodium diet of less than 2 g/day. Follow-up with GI and possible evaluation for outpatient EUS for pancreatic head mass. Coordinate with your PCP office to set up the referral. Coordinate with your outpatient clinic to get paracentesis every 1 to 2 weeks. You will need to hold your Lasix and Aldactone on the day of planned paracentesis and the day after paracentesis. Then you can resume your Lasix and Aldactone after that. Follow-up with urology as prior. Follow-up with outpatient palliative care. Coordinate with your PCP office to set up the referral. Take your medications as prescribed. Please make sure that you are able to get your medications today by calling your pharmacy before you leave the hospital so that your treatment continuity is not broken. Pending Studies at Discharge: No Stand-Alone Forms: My PrePlay, Smoking Cessation Medications and DC Order Prescriptions: New spironolactone 100 mg Tablet 100 mg PO QAM Qty: 30 0RF furosemide 40 mg Tablet 40 mg PO QAM Qty: 30 0RF Continued allopurinol 100 mg Tablet 200 mg PO QAM ferrous sulfate [iron] 325 mg (65 mg iron) Tablet 650 mg PO QAM Men's 50 Plus Multivitamin 400-20-370 mcg Tablet 1 tab PO DAILY Rx Instructions: Unable to verify OTC meds with patient at this date/time. Probiotic 5 billion cell Capsule, Sprinkle 1 cap PO QAM finasteride 5 mg tablet 5 mg PO QAM acetylcysteine 600 mg Capsule 600 mg PO DAILY pantoprazole 40 mg tablet,delayed release (DR/EC) 40 mg PO AMPM duloxetine 30 mg capsule,delayed release(DR/EC) 30 mg PO QAM Xifaxan 550 mg tablet 550 mg PO AMHS metoclopramide HCl 5 mg tablet 5 mg PO TID PRN (Reason: Nausea And Vomiting) mirtazapine 30 mg tablet 30 mg PO HS acetaminophen 500 mg Tablet 1,000 mg PO BID MDD 2000mg/24hr PRN (Reason: Pain) lactulose [Kristalose] 10 gram packet 10 g PO BID PRN (Reason: .) Rx Instructions: hold for more than 3 more BMs oxybutynin chloride 5 mg tablet 5 mg TID PRN (Reason: Bladder Spasms) cholestyramine (with sugar) 4 gram powder in packet 1 ea PO BID solifenacin 5 mg tablet 5 mg PO DAILY magnesium chloride [Mag 64] 64 mg tablet,delayed release (DR/EC) 64 mg PO DAILY albumin, human 25 % See Rx Instructions .ROUTE .COMPLEX Rx Instructions: If paracentesis yields a total volume of more than 3 L of fluid give 25% albumin as follows: 3L-5L-Give 1 unit albumin (25 gm in 100 mL), 5L-7.5L-Give 2 units albumin (25 gm in 100 mL), 7.5L-12L-Give 3 units albumin. Infuse albumin in 30 to 60 minutes each. triamcinolone acetonide 0.1 % cream TOPICAL insulin glargine [Lantus Solostar U-100 Insulin] 100 unit/mL (3 mL) insulin pen SUBCUT zinc 50 mg PO DAILY Discontinued potassium chloride 20 mEq tablet,ER particles/crystals 20 meq PO DAILY Discharge Orders: Discharge Order (Routine); Ordered 05/30/24 Ordered By: Dangelo George Admission Data Admit Date/Time: 05/20/24 10:01 Attending Provider: Dangelo George Admit Provider: Yordan Andersen Primary Care Provider: Kristen Vences Other Providers: Yordan Andersen; Sean Frances; Renetta Bravo; Franki Herbert; Brea Polk; Eliud Parrish; Negra Mcnally; Ashwini Oneal
[2024-05-30 15:23] VITALS: PULSE 63; RESP 18
[2024-05-30 16:26] VITALS: BP 157/66
== END 2024-05-30 17:10 | disposition home health service (06) | DRG 432 ==
LOC: ED 03:49 → SUATTDRO 10:01 → EDINP 10:01 → 2W 10:38

== ENCOUNTER 2024-06-12 11:17 | Inpatient (IN) ==
[2024-06-12 12:06] LABS: Hematocrit (blood only) 25.9 % (42.0-52.0); Hemoglobin 8.4 g/dl (14.0-18.0); Mean Corpuscular Hemoglobin 31.5 pg (25.0-34.0); Mean Corpuscular Hgb Conc 32.4 g/dL (32.0-36.0); Mean Platelet Volume 12.8 fL (9.4-12.4); Platelet Count 76 K/uL (130-400); RDW Coefficient of Variation 17.7 % (11.5-14.5); RDW Standard Deviation 62.4 fL (36.4-46.3); Red Blood Count 2.67 M/uL (4.70-6.10); White Blood Count 6.07 K/ul (4.8-10.8)
--- NOTE | 2024-06-12 12:24 | Emergency Department Note ---
Impression & Plan Precordial chest pain, Anemia, Acute hyperglycemia, Elevated liver enzymes, Hypomagnesemia ED Provider Note NAME: MERRITT TAPIA AGE: 74 SEX: M : 1950 ARRIVES VIA: Walk-In INFORMANT: [Patient] ED PROVIDER(S): [Scott Huynh MD] CHIEF COMPLAINT: Chest pain HISTORY OF PRESENT ILLNESS: The patient is a 74-year-old male with a history of radiation cystitis. He has received blood transfusions in the past because of ongoing bleeding. Patient states that he did have a procedure done at [facility] to help cauterize the bladder. This was done fairly recently. Patient states that he was on the way to have a paracentesis that had been scheduled. He began to notice central chest pain. The pain lasted for 10 minutes. The pain resolved spontaneously and has not returned. He was not sweaty or short of breath. The pain did not radiate. Patient states that in the past, he has been anemic when he developed some chest pain. He thought that might be the trouble today. Instead of going to the paracentesis appointment, he presented to the ED. PMHx/PSHx/Social Hx: See Below PHYSICAL EXAM: GENERAL: Patient is in no acute distress. HEENT: No acute trauma, normocephalic atraumatic, mucous membranes moist, no nasal congestion. NECK: No stridor, no adenopathy, no meningismus, trachea is midline. LUNGS: Clear to auscultation bilaterally, no wheeze, no rhonchi, breath sounds equal. HEART: 2/6 systolic murmur heard best at the right sternal border. ABDOMEN: Soft, nontender, no peritonitis. No significant distention. EXTREMITIES: No cyanosis, full range of motion of all the joints without pain or difficulty. NEUROLOGIC: Oriented x 3, no acute motor or sensory deficits, no focal weakness. SKIN: No jaundice, no diaphoresis. Somewhat pale. DIFFERENTIAL DIAGNOSIS: Anemia, [place], dysrhythmia, musculoskeletal pain, reflux, among others. EMERGENCY DEPARTMENT PROCEDURES: MEDICAL DECISION MAKING: There is no leukocytosis. The patient is anemic with a hemoglobin of 8.4 however, this is improved compared to recent testing. He is not in need of an emergent blood transfusion. There is a lower platelet count, consistent with his past history and liver disease. INR somewhat elevated, likely from his liver disease. VBG does show a subtle acidosis with a pH of 7.33. Renal panel testing shows some renal failure however, his creatinine is improved compared to recent testing. He does have a slightly low CO2 and a slightly elevated anion gap. Glucose was high at around 350. Magnesium was low at 1.6. There were elevated liver enzymes consistent with his liver disease. ECG showed a normal sinus rhythm, no obvious acute ischemia. Cardiac enzyme testing x 1 was not consistent with acute cardiac injury. Chest x-ray did not show mediastinal widening, pneumonia or pneumothorax. On exam, the patient was resting comfortably. He was not in distress. He was not having chest pain. The patient did receive IV insulin 10 units, he was given a 500 cc saline bolus, he was given IV magnesium. Despite the insulin and the fluids given, the blood sugar remained in the mid 300s. Given the concerns for early DKA, the patient was placed on an insulin drip. Given the patient's complaints, given the concerns for early DKA, given the persistent hyperglycemia, I do think a hospital stay would be warranted. I spoke with the patient and case management, the on-call hospitalist was consulted. Prior/Outside records/notes reviewed: None ECG per my interpretation: Indication was chest pain. The ECG shows a normal sinus rhythm with a rate of 71. There is some nonspecific ST change. There is no acute ST ovation, no PVCs. The QTc is 478. Continuous Cardiac Monitoring per my interpretation: An order was placed for continuous cardiac monitoring. The monitor shows a rate of 68 with normal sinus rhythm. Imaging/x-ray results per my interpretation: Chest x-ray does not show mediastinal widening, pneumonia or pneumothorax. Chronic Medical/Social conditions affecting care: Advanced age, history of radiation cystitis requiring packed red blood cell transfusion. Care/Management discussed with: ED pharmacist, case management and the on-call hospitalist. Level of care consideration(s): After review of the information above and other included data: --I believe the patient requires escalation of care to admission DISPOSITION: Admission Past Med/Surg History Problem List (Updated 06/12/24 @ 16:31 by Scott Huynh MD) Hypomagnesemia (Acute) Elevated liver enzymes (Acute) Acute hyperglycemia (Acute) Anemia (Acute) Precordial chest pain (Acute) Increased anion gap metabolic acidosis Abdominal pain, generalized Advanced care planning/counseling discussion Palliative care by specialist Acute on chronic blood loss anemia Elevated brain natriuretic peptide (BNP) level (Acute) Pancytopenia (Acute) Abdominal ascites (Acute) Abdominal pain (Acute) Hypocalcemia (Acute) Hyperglycemia (Acute) Elevated brain natriuretic peptide (BNP) level (Acute) Acute kidney injury superimposed on chronic kidney disease (Acute) Thrombocytopenia (Acute) Anemia requiring transfusions (Acute) Pancytopenia (Acute) Chest pain (Acute) LUCRETIA (acute kidney injury) Hematuria (Acute) Anemia (Acute) Acute urinary retention (Acute) DM type 2 (diabetes mellitus, type 2) Irradiation cystitis with hematuria UTI (urinary tract infection) (Acute) Anemia (Acute) 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 (Acute) Closed T12 spinal fracture (Acute) Prostate cancer (Acute) Hx radiation Insulin dependent type 2 diabetes mellitus Medical History CKD (chronic kidney disease) stage 3, GFR 30-59 ml/min Thrombocytopenia DM type 2 (diabetes mellitus, type 2) Hx of malignant neoplasm of prostate History of blood transfusion 11/2022 Hepatocellular carcinoma Spinal fracture of T12 vertebra History of recent hospitalization 06/2023 [facility] hepatic encephalopathy Liver spots Under surveillance, stable per patient Anxiety and depression 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 Anemia of chronic disease under surveillance History of panic attacks Gout No current issues GERD (gastroesophageal reflux disease) GAVE (gastric antral vascular ectasia) Hypertension Hx Esophageal varices EGD 05/22/23 ([facility]): Grade 1 varices in distal esophagus without high risk stigmata Upper GI bleed Hx Psoriasis Surgical History History of left cataract surgery History of right cataract surgery History of prostate biopsy malignant S/P TIPS (transjugular intrahepatic portosystemic shunt) History of esophagogastroduodenoscopy (EGD) Most recent 05/2023 [facility] History of colonoscopy with polypectomy History of tonsillectomy and adenoidectomy History of abdominal paracentesis Multiple, most recent 01/2023 Family History Father , "3/4 liver gone due to drinking" Colorectal cancer, Onset Age: 63 Mother Lung cancer Daughter Cancer cervical and thyroid cancers Ovarian cancer Other No family history of adverse response to anesthesia 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 Smoking Status: Never smoker Second Hand Exposure: No; Do You Dip or Chew Tobacco: No; Hx Alcohol Use: No Hx Substance Use: No Preferred Language: [place] Communication Ability: Effective Visual Impairment: No Limitations Hearing Ability: Normal 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 Boat Or Barge Mate Required: No Beliefs That Will Affect Care: None marital status: Current Living Situation: Spouse Current Living Situation Comment: 1 level single family home 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 How many Children do You have: 6 How many Children do You have Comment: one , eldest daughter in her sleep from seizure disorder Feels Safe at Home: Yes Childhood Exposure to Second-Hand Smoke: Yes Diet Comment: "I watch my sugar, average fasting is 140 mg/dl" caffeine: Yes (cola, sugar free, decaf) during the past year weight has: remained stable Dental Care, Regularly: No Physical Activity Frequency: Does not Exercise Seatbelt Use: always Sunscreen Use: Yes Assistive Devices: Oxygen - at Night, Stair Lift and Walker Allergies Allergies Allergy/AdvReac Type Severity Reaction Status Date / Time No Known Allergies Allergy Mild Verified 06/12/24 15:49 Home Meds Home Medications Medication Instructions Recorded Confirmed allopurinol 100 mg tablet 200 mg PO QAM 05/16/20 06/12/24 Lactobacil.acidophilus-Bifido.animalis 1 cap PO QAM 05/17/23 06/12/24 5 billion cell sprinkle capsule (Probiotic) ferrous sulfate 325 mg (65 mg 650 mg PO QAM 05/17/23 06/12/24 iron) tablet (iron) dmoeleqpsjkb-kle-gmydq acid-vit 1 tab PO DAILY 05/17/23 06/12/24 K-lycop 400 mcg-20 mcg-370 mcg tablet (Men's 50 Plus Multivitamin) duloxetine 30 mg capsule,delayed 30 mg PO QAM 02/02/24 06/12/24 release pantoprazole 40 mg tablet,delayed 40 mg PO AMPM 02/02/24 06/12/24 release rifaximin 550 mg tablet (Xifaxan) 550 mg PO AMHS 02/02/24 06/12/24 metoclopramide HCl 5 mg tablet 5 mg PO TID PRN Nausea And Vomiting 02/20/24 06/12/24 acetaminophen 500 mg tablet 1,000 mg PO BID PRN Pain 03/19/24 06/12/24 finasteride 5 mg tablet 5 mg PO QAM 03/20/24 06/12/24 lactulose 10 gram oral packet 10 g PO BID PRN . 03/20/24 06/12/24 (Kristalose) mirtazapine 30 mg tablet 30 mg PO HS 03/20/24 06/12/24 acetylcysteine 600 mg capsule 600 mg PO DAILY 05/03/24 06/12/24 albumin, human 25 % See Rx Instructions .Route .COMPLEX 05/20/24 06/12/24 cholestyramine (with sugar) 4 gram 1 ea PO BID 05/20/24 06/12/24 powder for susp in a packet insulin glargine 100 unit/mL (3 25 unit subcut QPM 05/20/24 06/12/24 mL) subcutaneous pen (Lantus Solostar U-100 Insulin) magnesium chloride 64 mg 64 mg PO DAILY 05/20/24 06/12/24 (magnesium chloride) tablet,delayed release (Mag 64) oxybutynin chloride 5 mg tablet 5 mg TID PRN Bladder Spasms 05/20/24 06/12/24 solifenacin 5 mg tablet 5 mg PO DAILY 05/20/24 06/12/24 triamcinolone acetonide 0.1 % 1 applic topical DAILY 05/20/24 06/12/24 topical cream zinc gluconate 50 mg tablet 50 mg PO DAILY ##0 05/20/24 06/12/24 Previous Rx's Medication Instructions Recorded furosemide 40 mg tablet 40 mg PO QAM #30 tabs 05/30/24 spironolactone 100 mg tablet 100 mg PO QAM #30 tabs 05/30/24 Results & Data (ED) Vital Signs Vital Signs - 24 hr 06/12/24 11:22 06/12/24 11:40 06/12/24 11:43 Temperature 36.9 C Temperature Source Temporal Artery Scan Pulse Rate 73 71 Pulse Rate [Left Finger] 68 Respiratory Rate 16 16 Respiratory Effort / Characteristics Non-Labored Spontaneous Non-Labored Respiratory Depth Normal Normal Respiratory Pattern Regular Blood Pressure 140/67 Blood Pressure [Left Arm] 145/66 H Blood Pressure Mean 91 Blood Pressure Mean [Left Arm] 92 Blood Pressure Position Sitting Pulse Oximetry 100 100 Oxygen Delivery Method Room Air Room Air Sepsis Recent Fever Within 48 Hours No Sepsis New/Unexplained Change in Mental Status N/A Sepsis Action Taken by Nursing No Action Required 06/12/24 13:29 06/12/24 15:26 06/12/24 15:37 Temperature Temperature Source Pulse Rate 61 Pulse Rate [Left Finger] 74 68 Respiratory Rate 20 21 Respiratory Effort / Characteristics Non-Labored Spontaneous Non-Labored Spontaneous Respiratory Depth Normal Normal Respiratory Pattern Blood Pressure Blood Pressure [Left Arm] 160/82 H 155/63 H Blood Pressure Mean Blood Pressure Mean [Left Arm] 108 93 Blood Pressure Position Pulse Oximetry 98 100 Oxygen Delivery Method Room Air Room Air Sepsis Recent Fever Within 48 Hours Sepsis New/Unexplained Change in Mental Status Sepsis Action Taken by [facility] Medications Current Medication List: was personally reviewed by me Laboratory Data Attestation: I reviewed the patient's lab results. 06/12/24 11:40 06/12/24 11:40 Lab Results 06/12/24 06/12/24 06/12/24 Range/Units 11:40 12:48 14:14 WBC 6.07 (4.8-10.8) K/ul RBC 2.67 L (4.70-6.10) M/uL Hgb 8.4 L (14.0-18.0) g/dl Hct 25.9 L (42.0-52.0) % MCV 97.0 (80.0-100.0) fL MCH 31.5 (25.0-34.0) pg MCHC 32.4 (32.0-36.0) g/dL RDW Std Deviation 62.4 H (36.4-46.3) fL RDW Coeff of Violetta 17.7 H (11.5-14.5) % Plt Count 76 L (130-400) K/uL MPV 12.8 H (9.4-12.4) fL Immature Gran % (Auto) 0.2 % Neut % (Auto) 91.4 % Lymph % (Auto) 4.6 % Garrett % (Auto) 3.8 % Eos % (Auto) 0.0 % Baso % (Auto) 0.0 % Neut # (Auto) 5.55 (1.40-6.50) K/uL Lymph # (Auto) 0.28 L (1.20-3.40) K/uL Garrett # (Auto) 0.23 (0.11-0.59) K/uL Eos # (Auto) 0.00 (0.00-0.50) K/uL Baso # (Auto) 0.00 (0.00-0.20) K/uL Immature Gran # (Auto) 0.01 (0.01-0.20) K/uL Polychromasia 1+ Tear Drop Cells 1+ Ovalocytes 1+ PT Cancelled 14.0 H INR Cancelled 1.3 H APTT Cancelled 28 PTT Ratio Cancelled 1.0 VBG pH (7.36-7.41) VBG pCO2 (38-50) mmHg VBG pO2 mmHg VBG HCO3 mmol/L VBG O2 Saturation % VBG Base Excess mEq/L Sodium 135 L (136-145) mmol/L Potassium 4.8 (3.5-5.1) mmol/L Chloride 106 (98-107) mmol/L Carbon Dioxide 15 L (21-32) mmol/L Anion Gap 14 H (3-11) BUN 41 H (6-23) mg/dl Creatinine 1.77 H (0.6-1.4) mg/dl Est Cr Clr Drug Dosing 37.8 ml/min Est GFR ( Amer) 42.9 ml/min Est GFR (Non-Af Amer) 37.0 ml/min BUN/Creatinine Ratio 23.2 H (10-20) Glucose 350 H* (70-99(Fasting)) mg/dl POC Glucose 339 H* (70-99) mg/dl Calcium 9.1 (8.6-10.3) mg/dl Magnesium 1.6 L (1.7-2.4) mg/dl Total Bilirubin 2.1 H (0.2-1.0) mg/dl AST 174 H (13-39) U/L ALT 67 H (7-52) U/L Alkaline Phosphatase 176 H (34-104) U/L Troponin I High Sens 10.3 (0-20) pg/ml Total Protein 7.1 (6.0-8.3) gm/dl Albumin 3.8 (3.4-5.0) gm/dl Globulin 3.3 (2.5-4.0) gm/dl Albumin/Globulin Ratio 1.2 (0.9-2) 06/12/24 06/12/24 Range/Units 14:36 15:54 WBC (4.8-10.8) K/ul RBC (4.70-6.10) M/uL Hgb (14.0-18.0) g/dl Hct (42.0-52.0) % MCV (80.0-100.0) fL MCH (25.0-34.0) pg MCHC (32.0-36.0) g/dL RDW Std Deviation (36.4-46.3) fL RDW Coeff of Violetta (11.5-14.5) % Plt Count (130-400) K/uL MPV (9.4-12.4) fL Immature Gran % (Auto) % Neut % (Auto) % Lymph % (Auto) % Garrett % (Auto) % Eos % (Auto) % Baso % (Auto) % Neut # (Auto) (1.40-6.50) K/uL Lymph # (Auto) (1.20-3.40) K/uL Garrett # (Auto) (0.11-0.59) K/uL Eos # (Auto) (0.00-0.50) K/uL Baso # (Auto) (0.00-0.20) K/uL Immature Gran # (Auto) (0.01-0.20) K/uL Polychromasia Tear Drop Cells Ovalocytes PT INR APTT PTT Ratio VBG pH 7.33 L (7.36-7.41) VBG pCO2 34 L (38-50) mmHg VBG pO2 30 mmHg VBG HCO3 18 mmol/L VBG O2 Saturation < 60.0 % VBG Base Excess -7.1 mEq/L Sodium (136-145) mmol/L Potassium (3.5-5.1) mmol/L Chloride (98-107) mmol/L Carbon Dioxide (21-32) mmol/L Anion Gap (3-11) BUN (6-23) mg/dl Creatinine (0.6-1.4) mg/dl Est Cr Clr Drug Dosing ml/min Est GFR ( Amer) ml/min Est GFR (Non-Af Amer) ml/min BUN/Creatinine Ratio (10-20) Glucose (70-99(Fasting)) mg/dl POC Glucose 264 H (70-99) mg/dl Calcium (8.6-10.3) mg/dl Magnesium (1.7-2.4) mg/dl Total Bilirubin (0.2-1.0) mg/dl AST (13-39) U/L ALT (7-52) U/L Alkaline Phosphatase (34-104) U/L Troponin I High Sens (0-20) pg/ml Total Protein (6.0-8.3) gm/dl Albumin (3.4-5.0) gm/dl Globulin (2.5-4.0) gm/dl Albumin/Globulin Ratio (0.9-2) Administered Medications Insulin Human Regular 250 (units/ Sodium Chloride) 250 mls @ 7.5 mls/hr IV .Q24H [facility]; Protocol Stop: 07/12/24 14:29 Last Titration: 06/12/24 16:01 Dose: 6 units/hr, 6 mls/hr Documented By: ELISSA Co-signed By: ELISSA(2) Admin: 06/12/24 14:52 Dose: 7.5 units/hr, 7.5 mls/hr Documented By: ELISSA Co-signed By: DIONTE Discontinued Medications Sodium Chloride (Nss) 500 mls @ 999 mls/hr IV .Q31M ONE Stop: 06/12/24 13:21 Last Infusion: 06/12/24 13:59 Dose: Infused Documented By: Admin: 06/12/24 13:02 Dose: 999 mls/hr Documented By: AJITH Magnesium Sulfate/Dextrose (Magnesium Sulfate / D5w) 1 gm in 100 mls @ 100 mls/hr IV NOW STA Stop: 06/12/24 13:50 Last Infusion: 06/12/24 13:58 Dose: Infused Documented By: Admin: 06/12/24 12:57 Dose: 100 mls/hr Documented By: AJITH Insulin Human Regular (Novolin-R Insulin Per Unit Charge) 10 units IV NOW STA Stop: 06/12/24 12:52 Last Admin: 06/12/24 12:57 Dose: 10 units Documented By: AJITH Co-signed By: DIONTE Imaging Data Radiologist's Impression: Chest X-Ray 06/12/24 11:50 XR chest 1V not portable HISTORY: 74 years-old Male Chest pain, nonspecific COMPARISON: 05/20/2024 TECHNIQUE: AP view of the chest FINDINGS: Cardiac silhouette is enlarged. No pneumothorax, pleural effusion, airspace consolidation or pulmonary edema. Degenerative changes of the shoulders and spine. IMPRESSION: No acute process. ACT 112: Negative or not required by law. The above report was generated using voice recognition software. It may contain grammatical, syntax or spelling errors. Electronically signed by: Yovany Gonzalez M.D. 06/12/2024 12:24 PM Discharge Plan Visit Data Chief Complaint: Cardiac Assessment Stated Complaint: SEVERE CHEST PAINS ED Provider: Scott Huynh Discharge Problem: Precordial chest pain, Anemia, Acute hyperglycemia, Elevated liver enzymes, Hypomagnesemia Patient Disposition: Admitted As Inpatient Condition: Fair Discharge Instructions Interventions: ED Discharge Assessment Last Done: 06/12/24 16:22 Prescriptions Prescriptions: No Action allopurinol 100 mg Tablet 200 mg PO QAM ferrous sulfate [iron] 325 mg (65 mg iron) Tablet 650 mg PO QAM Rx Instructions: Unable to verify OTC meds at this date/time Men's 50 Plus Multivitamin 400-20-370 mcg Tablet 1 tab PO DAILY Rx Instructions: Unable to verify OTC meds with patient at this date/time. Probiotic 5 billion cell Capsule, Sprinkle 1 cap PO QAM Rx Instructions: Unable to verify OTC meds at this date/time finasteride 5 mg tablet 5 mg PO QAM Rx Instructions: Last filled 01/09/24 x90 day supply, caregiver states pt still on this medication. acetylcysteine 600 mg Capsule 600 mg PO DAILY pantoprazole 40 mg tablet,delayed release (DR/EC) 40 mg PO AMPM duloxetine 30 mg capsule,delayed release(DR/EC) 30 mg PO QAM Xifaxan 550 mg tablet 550 mg PO AMHS Rx Instructions: Medication was picked up from pharmacy on 06/12/2024 metoclopramide HCl 5 mg tablet 5 mg PO TID PRN (Reason: Nausea And Vomiting) mirtazapine 30 mg tablet 30 mg PO HS Rx Instructions: Unable to very this medication at this date/time. acetaminophen 500 mg Tablet 1,000 mg PO BID MDD 2000mg/24hr PRN (Reason: Pain) Rx Instructions: Unable to verify OTC meds at this date/time lactulose [Kristalose] 10 gram packet 10 g PO BID PRN (Reason: .) Rx Instructions: hold for more than 3 more BMs oxybutynin chloride 5 mg tablet 5 mg TID PRN (Reason: Bladder Spasms) cholestyramine (with sugar) 4 gram powder in packet 1 ea PO BID solifenacin 5 mg tablet 5 mg PO DAILY Rx Instructions: Medication was picked up from pharmacy on 06/12/24 magnesium chloride [Mag 64] 64 mg tablet,delayed release (DR/EC) 64 mg PO DAILY Rx Instructions: Last filled 02/22 x30 day supply, caregiver states pt still on this medication. albumin, human 25 % See Rx Instructions .ROUTE .COMPLEX Rx Instructions: If paracentesis yields a total volume of more than 3 L of fluid give 25% albumin as follows: 3L-5L-Give 1 unit albumin (25 gm in 100 mL), 5L-7.5L-Give 2 units albumin (25 gm in 100 mL), 7.5L-12L-Give 3 units albumin. Infuse albumin in 30 to 60 minutes each. - Caregiver unsure about this medication at this date/time. triamcinolone acetonide 0.1 % cream 1 applic TOPICAL DAILY zinc gluconate 50 mg Tablet 50 mg PO DAILY Qty: 0 Rx Instructions: Unable to verify OTC meds at this date/time insulin glargine [Lantus Solostar U-100 Insulin] 100 unit/mL (3 mL) insulin pen 25 unit SUBCUT QPM spironolactone 100 mg Tablet 100 mg PO QAM Qty: 30 0RF furosemide 40 mg Tablet 40 mg PO QAM Qty: 30 0RF Discharge Problem: Anemia Qualifiers: Anemia type: unspecified type Qualified Code(s): D64.9 - Anemia, unspecified
--- NOTE | 2024-06-12 12:26 | XRay Report ---
XR chest 1V not portable HISTORY: 74 years-old Male Chest pain, nonspecific COMPARISON: 05/20/2024 TECHNIQUE: AP view of the chest FINDINGS: Cardiac silhouette is enlarged. No pneumothorax, pleural effusion, airspace consolidation or pulmonar y edema. Degenerative changes of the shoulders and spine. IMPRESSION: No acute process. ACT 112: Negative or not required by law. The above report was generated using voice recognition software. It may contain grammatical, syntax o r spelling errors. Electronically signed by: Yovany Gonzalez M.D. 06/12/2024 12:24 PM
[2024-06-12 12:41] LABS: Immature Granulocytes # (auto) 0.01 K/uL (0.01-0.20); Immature Granulocytes % (auto) 0.2 %; Lymphocytes # (auto) 0.28 K/uL (1.20-3.40); Lymphocytes % (auto) 4.6 %; Monocytes # (auto) 0.23 K/uL (0.11-0.59); Monocytes % (auto) 3.8 %; Neutrophils # (auto) 5.55 K/uL (1.40-6.50); Neutrophils % (auto) 91.4 %; Ovalocytes 1+; Polychromasia 1+; Tear Drop Cells 1+
[2024-06-12 12:42] LABS: Albumin Globulin Ratio 1.2 (0.9-2); Albumin Level 3.8 gm/dl (3.4-5.0); BUN Creatinine Ratio 23.2 (10-20); Bilirubin,Total 2.1 mg/dl (0.2-1.0); Calcium 9.1 mg/dl (8.6-10.3); Creatinine Clr Calc Pharmacy 37.8 ml/min; Est GFR (African American) 42.9 ml/min; Globulin 3.3 gm/dl (2.5-4.0); Magnesium 1.6 mg/dl (1.7-2.4); Potassium 4.8 mmol/L (3.5-5.1); Total Protein 7.1 gm/dl (6.0-8.3); Troponin I High Sensitivity 10.3 pg/ml (0-20)
[2024-06-12] MEDS: NovoLIN-R INSULIN PER UNIT CHARGE IV STA (12:57)
[2024-06-12] MEDS: MAGNESIUM SULFATE / D5W 1 GM/100 ML BAG IV STA (12:57)
[2024-06-12] MEDS: SODIUM CHLORIDE 0.9% 500 ML IV ONE (13:02)
[2024-06-12 13:27] LABS: INR 1.3 (0.9-1.1); Partial Thromboplastin Time 28 Seconds (21-31)
[2024-06-12] MEDS ORDERED: GLUCOSE 10 TAB/TUBE PO PRN ×2 (14:23→16:28)
[2024-06-12] MEDS ORDERED: GLUCOSE 40% GEL 15 GM TUBE PO PRN ×2 (14:23→16:28)
[2024-06-12] MEDS ORDERED: GLUCAGON FOR INJ 1 MG VIAL SQ PRN ×2 (14:23→16:28)
[2024-06-12] MEDS ORDERED: CARBOHYDRATES FOR HYPOGLYCEMIA PO PRN ×2 (14:23→16:28)
[2024-06-12] MEDS ORDERED: DEXTROSE 50% 50 ML SYRINGE IV PRN ×2 (14:23→16:28)
[2024-06-12 14:41] LABS: Base Excess VBG -7.1 mEq/L; HCO3 VBG 18 mmol/L; Oxygen Saturation VBG < 60.0 %; PCO2 VBG 34 mmHg (38-50); PO2 VBG 30 mmHg; pH VBG 7.33 (7.36-7.41)
[2024-06-12] MEDS: INSULIN REGULAR 250 UNITS in SODIUM CHLORIDE 0.9% 247.5 ML IV SCH (14:52)
--- NOTE | 2024-06-12 15:25 | History & Physical Report ---
Date of Service June 12, 2024 Assessment & Plan (1) Epigastric abdominal pain: (2) Increased anion gap metabolic acidosis: (3) Elevated lactic acid level: Plan Luis Hale is a 74y/o M with PMHx of DM type II [on basal insulin], CKD stage III, dyslipidemia, chronic gout of multiple sites, restrictive lung disease, pulmonary hypertension, gastric antral vascular ectasia, esophageal varices, history of portal vein thrombosis, cirrhosis of liver with portal hypertension s/p TIPS, hepatocellular carcinoma, GERD, prostate cancer, radiation cystitis, acquired thrombocytopenia, chronic anemia and other problems listed below who presented to the ED secondary to an episode of epigastric pain. Patient was most recently hospitalized and treated here at [facility] 05/20-05/30 for LUCRETIA, abdominal ascites and acute blood loss anemia. He is s/p 1 unit of PRBCs on 05/22 and another 1 unit of PRBCs on 05/28. Epigastric Abdominal Pain Chest Pain Rule-Out According to ED provider, patient was on his way to have paracentesis performed (as scheduled) when he began to experience central chest pain that lasted for approximately 10 minutes - which caused him to come to the ED. The pain ultimately resolved spontaneously and has not returned since then. However, after speaking to the patient, he reports that this episode of pain was not localized to his chest but rather his epigastric region. He said it was very sharp and lasted approximately 10-15 minutes before it completely resolved. Presenting EKG w/out any ischemic changes, initial troponin NEGATIVE at 10. Will continue with chest pain r/o precautions - trend troponin x3, echo pending. Continuous cardiac and pulse ox monitoring to continue - monitor on telemetry. Since pt reporting more epigastric pain vs. chest pain, will start him on IV Protonix BID. Lipase and CTAP w/o contrast were also ordered - currently pending, will follow. Increased Anion Gap Metabolic Acidosis - ? Mild DKA Elevated Lactic Acid Level Diabetes Mellitus Type II [On Insulin] Patient's BSG noted to be elevated at 350 upon arrival to ED. He ultimately received an insulin bolus in the ED and his BSG decreased to 339. Anion gap of 14 on arrival; VBG performed - pH 7.33, pCO2 34. Lactate 3.6 on admission - Will start patient on gentle IVF. Repeat lactate pending at this time - continue to follow, reassess need for additional IVF. Pt uses basal insulin at home; Hgb A1c 8.0 on 05/18/24, pt notes his BSG has been running in the 120s [employer]AMP [employer]. No plan for insulin drip at this time; will initiate basal+bolus insulin regimen while he's inpatient. Glycemic pharmacy consult placed given pt's complex medical hx, presenting metabolic acidosis. BSG checks Q1H for now, also BSG checks ACHS - will need to closely monitor BSG. Repeat BMP ~6PM tonight to reassess anion gap; also repeat CMP in AM. CKD Stage III Creatinine 1.77 on admission (baseline Cr ~1.1 per chart review). Received 1/2L NSS in the ED; continue to monitor renal function. Repeat CMP in AM; avoid nephrotoxic medications when able, holding Lasix and spironolactone for now. Liver Cirrhosis 2/2 FOFANA H/O Esophageal Varices & Gastric Antral Vascular Ectasia Pt was to attend previously scheduled paracentesis appointment today. Per chart review, appears pt requires paracentesis [id number]. Pt s/p therapeutic paracentesis with removal of 3200cc of fluids on 05/20/2024 and 3600cc on 05/26/2024. Transaminitis present on admission --> AST 174, ALT 67, Alk Phos 176 and Total Bili 2.1 Can continue [employer] furosemide, Xifaxan and lactulose. Repeat CMP in AM - monitor liver function. Hepatocellular Carcinoma Chronic Anemia & Thrombocytopenia Pt underwent transarterial bland embolization at [facility] yesterday (06/11). Pt follows w/ [facility] [Dr. Ramires]. Baseline Hgb ~8 per chart review; Hgb 8.4 on admission. Plt count 76K on admission - appears rather stable per chart review [2/2 liver cirrhosis]. Pt has required frequent blood transfusions in the past. He was also treated multiple times w/ iron infusions. Continue [employer] iron supplementation, repeat CBC in AM - closely monitor Hgb and plt count. H/O Prostate Cancer & Radiation Cystitis Pt follows w/ [facility] [Dr. Ramires]. Completed radiation therapy to the prostate on 04/05/21. Pt also follows / [facility] [Dr. Frank Peraza]. History of radiation cystitis s/p cystourethroscopy with clot evacuation and fulguration. Recent [facility] confinement 05/03-05/08 for hematuria secondary to radiation cystitis, acute blood loss anemia. Will obtain UA (+/- culture) given hx of hematuria; pt notes significant improvement in his hematuria. However, he did note some blood in his urine down in the ED. Denies any dysuria at this time. Can continue [employer] finasteride, oxybutynin and solifenacin. H/O Gout: Can continue [employer] allopurinol. Anxiety & Depression: Can continue [employer] duloxetine, mirtazapine. DVT Prophylaxis: SCDs - For now given history of chronic anemia, recent blood transfusions. Code Status: DNR/DNI - No Resuscitation PCP: Kristen Vences DO Disposition: Admit to PCU/Telemetry Patient seen in collaboration with Dr. Villanueva. Please see addendum. I spent a total of 70 minutes coordinating, documenting, and providing care for this patient excluding time spent in the performance of separately billed services. This included personally reviewing all current laboratories and imaging studies, medical reconciliation, outpatient chart review and discussion with specialists. This chart was completed in part utilizing Speech Voice Recognition Software. Grammatical errors, random word insertions, pronoun errors, and incomplete sentences are an occasional consequence of this system due to software limitations, ambient noise, and hardware issues. Any formal questions or concerns about the content, text, or information contained within the body of this dictation should be directly addressed to the provider for clarification. History of Present Illness Chief Complaint: Episode of Chest Pain Primary Care Provider: Kristen Vences DO Luis Hale is a 74y/o M with PMHx of DM type II [on basal insulin], CKD stage III, dyslipidemia, chronic gout of multiple sites, restrictive lung disease, pulmonary hypertension, gastric antral vascular ectasia, esophageal varices, history of portal vein thrombosis, cirrhosis of liver, GERD, history of liver cell carcinoma, prostate cancer, radiation cystitis, acquired thrombocytopenia, chronic anemia and other problems listed below who presented to the ED secondary to an episode of chest pain. History obtained from patient and associated chart review. According to ED provider, patient was on his way to have paracentesis performed (as scheduled) when he began to experience central chest pain that lasted for approximately 10 minutes - which caused him to come to the ED. The pain ultimately resolved spontaneously and has not returned since then. Patient seen at bedside. He reports that this episode of pain was not localized to his chest, but rather his epigastric region. He said it was very sharp and lasted approximately 10-15 minutes before it completely resolved. He denies any other recent episodes of pain such as this. No recent fevers, illnesses or chills. He ate a cookie, cupcake and some grapes for breakfast - which he thinks may have caused this episode potentially. He typically does not consume those foods for breakfast. He reports no pain during our conversation - states he is feeling well overall. No shaking, diaphoresis, N/V or abdominal pain. Patient's BSG noted to be elevated at 350 upon arrival to ED; patient notes his blood sugar has been running in the 120s at home. He ultimately received an insulin bolus in the ED and his BSG decreased to 339. Patient uses basal insulin at home - 25 units of insulin glargine QPM. He has been on short-acting insulin in the past, but denies being on a basal/bolus regimen anytime recently. Patient was most recently hospitalized and treated here at [facility] 05/20-05/30 for LUCRETIA, abdominal ascites and acute blood loss anemia. He is s/p 1 unit of PRBCs on 05/22 and another 1 unit of PRBCs on 05/28. Patient notes that his hematuria has significantly improved - has not noticed much to any blood in his urine since being discharged. Allergies Allergy/AdvReac Type Severity Reaction Status Date / Time No Known Allergies Allergy Mild Verified 06/12/24 15:49 Home Medications Medication Instructions Recorded Confirmed Type allopurinol 100 mg tablet 200 mg PO QAM 05/16/20 06/12/24 History Lactobacil.acidophilus-Bifido.animalis 1 cap PO QAM 05/17/23 06/12/24 History 5 billion cell sprinkle capsule (Probiotic) ferrous sulfate 325 mg (65 mg 650 mg PO QAM 05/17/23 06/12/24 History iron) tablet (iron) daytizlzpxbh-ayc-cdmmm acid-vit 1 tab PO DAILY 05/17/23 06/12/24 History K-lycop 400 mcg-20 mcg-370 mcg tablet (Men's 50 Plus Multivitamin) duloxetine 30 mg capsule,delayed 30 mg PO QAM 02/02/24 06/12/24 History release pantoprazole 40 mg tablet,delayed 40 mg PO AMPM 02/02/24 06/12/24 History release rifaximin 550 mg tablet (Xifaxan) 550 mg PO AMHS 02/02/24 06/12/24 History metoclopramide HCl 5 mg tablet 5 mg PO TID PRN Nausea And Vomiting 02/20/24 06/12/24 History acetaminophen 500 mg tablet 1,000 mg PO BID PRN Pain 03/19/24 06/12/24 History finasteride 5 mg tablet 5 mg PO QAM 03/20/24 06/12/24 History lactulose 10 gram oral packet 10 g PO BID PRN . 03/20/24 06/12/24 History (Kristalose) mirtazapine 30 mg tablet 30 mg PO HS 03/20/24 06/12/24 History acetylcysteine 600 mg capsule 600 mg PO DAILY 05/03/24 06/12/24 History albumin, human 25 % See Rx Instructions .Route .COMPLEX 05/20/24 06/12/24 History cholestyramine (with sugar) 4 gram 1 ea PO BID 05/20/24 06/12/24 History powder for susp in a packet insulin glargine 100 unit/mL (3 25 unit subcut QPM 05/20/24 06/12/24 History mL) subcutaneous pen (Lantus Solostar U-100 Insulin) magnesium chloride 64 mg 64 mg PO DAILY 05/20/24 06/12/24 History (magnesium chloride) tablet,delayed release (Mag 64) oxybutynin chloride 5 mg tablet 5 mg TID PRN Bladder Spasms 05/20/24 06/12/24 History solifenacin 5 mg tablet 5 mg PO DAILY 05/20/24 06/12/24 History triamcinolone acetonide 0.1 % 1 applic topical DAILY 05/20/24 06/12/24 History topical cream zinc gluconate 50 mg tablet 50 mg PO DAILY ##0 05/20/24 06/12/24 History furosemide 40 mg tablet 40 mg PO QAM #30 tabs 05/30/24 06/12/24 Rx spironolactone 100 mg tablet 100 mg PO QAM #30 tabs 05/30/24 06/12/24 Rx Past Med/Surg History Problem List Elevated lactic acid level Epigastric abdominal pain Hypomagnesemia (Acute) Elevated liver enzymes (Acute) Acute hyperglycemia (Acute) Anemia (Acute) Precordial chest pain (Acute) Increased anion gap metabolic acidosis Abdominal pain, generalized Advanced care planning/counseling discussion Palliative care by specialist Acute on chronic blood loss anemia Elevated brain natriuretic peptide (BNP) level (Acute) Pancytopenia (Acute) Abdominal ascites (Acute) Abdominal pain (Acute) Hypocalcemia (Acute) Hyperglycemia (Acute) Elevated brain natriuretic peptide (BNP) level (Acute) Acute kidney injury superimposed on chronic kidney disease (Acute) Thrombocytopenia (Acute) Anemia requiring transfusions (Acute) Pancytopenia (Acute) Chest pain (Acute) LUCRETIA (acute kidney injury) Hematuria (Acute) Anemia (Acute) Acute urinary retention (Acute) DM type 2 (diabetes mellitus, type 2) Irradiation cystitis with hematuria UTI (urinary tract infection) (Acute) Anemia (Acute) 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 (Acute) Closed T12 spinal fracture (Acute) Prostate cancer (Acute) Hx radiation Insulin dependent type 2 diabetes mellitus Medical History CKD (chronic kidney disease) stage 3, GFR 30-59 ml/min Thrombocytopenia DM type 2 (diabetes mellitus, type 2) Hx of malignant neoplasm of prostate History of blood transfusion 11/2022 Hepatocellular carcinoma Spinal fracture of T12 vertebra History of recent hospitalization 06/2023 [facility] hepatic encephalopathy Liver spots Under surveillance, stable per patient Anxiety and depression 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 Anemia of chronic disease under surveillance History of panic attacks Gout No current issues GERD (gastroesophageal reflux disease) GAVE (gastric antral vascular ectasia) Hypertension Hx Esophageal varices EGD 05/22/23 ([facility]): Grade 1 varices in distal esophagus without high risk stigmata Upper GI bleed Hx Psoriasis Surgical History History of left cataract surgery History of right cataract surgery History of prostate biopsy malignant S/P TIPS (transjugular intrahepatic portosystemic shunt) History of esophagogastroduodenoscopy (EGD) Most recent 05/2023 [facility] History of colonoscopy with polypectomy History of tonsillectomy and adenoidectomy History of abdominal paracentesis Multiple, most recent 01/2023 Family History Father , "3/4 liver gone due to drinking" Colorectal cancer, Onset Age: 63 Mother Lung cancer Daughter Cancer cervical and thyroid cancers Ovarian cancer Other No family history of adverse response to anesthesia 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 Smoking Status: Never smoker Second Hand Exposure: No; Do You Dip or Chew Tobacco: No; Hx Alcohol Use: No Hx Substance Use: No Preferred Language: Cymro Communication Ability: Effective Visual Impairment: No Limitations Hearing Ability: Normal Medical Education Specialist Required: No Beliefs That Will Affect Care: None marital status: Current Living Situation: Spouse Current Living Situation Comment: 1 level single family home 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 How many Children do You have: 6 How many Children do You have Comment: one , eldest daughter in her sleep from seizure disorder Other Information That Helps Us Care for You: No Feels Safe at Home: Yes Safety Concerns: Feels Safe At This Time Childhood Exposure to Second-Hand Smoke: Yes Diet Comment: "I watch my sugar, average fasting is 140 mg/dl" caffeine: Yes (cola, sugar free, decaf) during the past year weight has: remained stable Dental Care, Regularly: No Physical Activity Frequency: Does not Exercise Seatbelt Use: always Sunscreen Use: Yes Assistive Devices: Glasses and Oxygen - at Night Review of Systems Review of Systems: At least ten systems reviewed and negative, except as noted in the HPI. Physical Exam Physical Exam: General: NAD, laying down in bed, very pleasant, conversing appropriately. A+Ox3, euthymic affect. HEENT: Normocephalic, atraumatic. Conjunctivae normal, anicteric sclerae, oropharynx normal. Respiratory: Normal respiratory effort, lungs clear to auscultation. No accessory muscle use. Cardiovascular: Regular rate, rhythm, no BLE edema. Vessels: No JVD. Abdomen/GI: Normal bowel sounds, soft, mild abdominal distention. Extremities/Musculoskeletal: No cyanosis or clubbing, moves all extremities. Neurologic: PERRL, EOMI, accommodation nl, no face palsy, no dysarthria. Skin: Appears very mildly jaundiced; no rashes or diaphoresis. Results & Data Results & Data Vital Signs (Past 12 Hours) Vital Signs Temp Pulse Pulse Resp BP BP Pulse Ox 06/12/24 13:29 74 20 160/82 H 98 06/12/24 11:43 68 16 145/66 H 100 06/12/24 11:40 71 06/12/24 11:22 36.9 C 73 16 140/67 100 O2 Del Method 06/12/24 13:29 Room Air 06/12/24 11:43 Room Air 06/12/24 11:40 06/12/24 11:22 Room Air Laboratory Results Short CBC 06/12/24 Range/Units 11:40 WBC 6.07 (4.8-10.8) K/ul Hgb 8.4 L (14.0-18.0) g/dl Hct 25.9 L (42.0-52.0) % Plt Count 76 L (130-400) K/uL BMP 06/12/24 11:40 Sodium 135 L Potassium 4.8 Chloride 106 Carbon Dioxide 15 L BUN 41 H Creatinine 1.77 H Glucose 350 H* Calcium 9.1 Liver Function 06/12/24 Range/Units 11:40 Total Bilirubin 2.1 H (0.2-1.0) mg/dl AST 174 H (13-39) U/L ALT 67 H (7-52) U/L Alkaline Phosphatase 176 H (34-104) U/L Albumin 3.8 (3.4-5.0) gm/dl Diagnostic Findings Chest X-Ray 06/12/24 11:50 XR chest 1V not portable HISTORY: 74 years-old Male Chest pain, nonspecific COMPARISON: 05/20/2024 TECHNIQUE: AP view of the chest FINDINGS: Cardiac silhouette is enlarged. No pneumothorax, pleural effusion, airspace consolidation or pulmonary edema. Degenerative changes of the shoulders and spine. IMPRESSION: No acute process. ACT 112: Negative or not required by law. The above report was generated using voice recognition software. It may contain grammatical, syntax or spelling errors. Electronically signed by: Yovany Gonzalez M.D. 06/12/2024 12:24 PM Medications Administered Insulin Human Regular 250 (units/ Sodium Chloride) 250 mls @ 7.5 mls/hr IV .Q24H JODI; Protocol Stop: 07/12/24 14:29 Last Admin: 06/12/24 14:52 Dose: 7.5 units/hr, 7.5 mls/hr Documented By: ELISSA Co-signed By: DIONTE Discontinued Medications Sodium Chloride (Nss) 500 mls @ 999 mls/hr IV .Q31M ONE Stop: 06/12/24 13:21 Last Infusion: 06/12/24 13:59 Dose: Infused Documented By: Admin: 06/12/24 13:02 Dose: 999 mls/hr Documented By: AJITH Magnesium Sulfate/Dextrose (Magnesium Sulfate / D5w) 1 gm in 100 mls @ 100 mls/hr IV NOW STA Stop: 06/12/24 13:50 Last Infusion: 06/12/24 13:58 Dose: Infused Documented By: Admin: 06/12/24 12:57 Dose: 100 mls/hr Documented By: AJITH Insulin Human Regular (Novolin-R Insulin Per Unit Charge) 10 units IV NOW STA Stop: 06/12/24 12:52 Last Admin: 06/12/24 12:57 Dose: 10 units Documented By: AJITH Co-signed By: DIONTE ECG Additional Comments: Admitting EKG shows NSR w/ HR 71bpm, QTc interval 478ms. Code Status & VTE Plan Code Status DNR/DNI - No Resuscitation VTE Prophylaxis Plan VTE Prophylaxis will be ordered: Yes Supervising Physician Co-Signing Physician Notes Attending Addendum: Case reviewed with the advanced practitioner. I have personally performed a history and physical examination on the patient. I have reviewed the advanced practitioner's documentation on the date of service referenced in note, and I agree with, and take responsibility for the plan of care. please refer to her notes for full details patient seen and examined, records reviewed by myself as well on exam, patient seen resting in bed, comfortable in good spirits reports epigastric pain, resolved no chest pain no other symptoms VS noted and reviewed oriented x 3, not in distress, speaks in sentences with no effort nor accessory muscle use normal rate, regular rhythm, no murmurs clear breath sounds bilaterally non distended, soft, nontender no bipedal edema, erythema, warmth no neuro deficits all labs, imaging noted and reviewed ASSESSMENT AND PLAN EPIGASTRIC PAIN likely GI etiology, possible PUD/Gastritis occurred after eating a heavy meal resolved, no recurrence at the ER CT abdomen/pelvis w/o contrast Protonix IV BID Hg stable, monitor will trend troponin, check echo to r/o ACS as well MILD DKA BSG 300s (+) anion gap, acidosis Insulin drip started Gap closed in the evening ELEVATED LACTIC ACID IV fluids monitor other diagnoses and plan of care as per advanced practitioner's notes Franko Villanueva MD
[2024-06-12] MEDS ORDERED: ONDANSETRON INJ 2 MG/ML 2 ML VIAL IV PRN (16:28)
[2024-06-12] MEDS ORDERED: PHARMACY GLYCEMIC MGMT CONSULT PRN (16:28)
[2024-06-12] MEDS ORDERED: INSULIN ASPART PER UNIT CHARGE SC SCH ×2 (16:30→18:00)
[2024-06-12] MEDS: DKA GOAL RANGE 150-250 mg/dl ONE (16:53)
[2024-06-12] MEDS: STAT IV Infusion **Titration per Protocol STA (16:53)
--- NOTE | 2024-06-12 17:02 | Electrocardiogram Report ---
Test Reason : Blood Pressure : / mmHG Vent. Rate : 071 BPM Atrial Rate : 071 BPM P-R Int : 198 ms QRS Dur : 094 ms QT Int : 440 ms P-R-T Axes : 052 001 065 degrees QTc Int : 478 ms Normal sinus rhythm Normal ECG When compared with ECG of 20-MAY-2024 03:59, No significant change was found Confirmed by Jose Ramon Rizvi ([id number]) on 06/12/2024 5:01:57 PM Referred By: REFERRED SELF Confirmed By:Greyson Rizvi
[2024-06-12] MEDS ORDERED: LACTULOSE 10 GM PO PRN (17:18)
[2024-06-12] MEDS ORDERED: SODIUM CHLORIDE 0.9% 1,000 ML IV SCH (17:30)
[2024-06-12 18:41] LABS: BUN Creatinine Ratio 25.5 (10-20); Calcium 9.4 mg/dl (8.6-10.3); Creatinine Clr Calc Pharmacy 42.6 ml/min; Est GFR (African American) 49.6 ml/min; Est GFR (Non-African American) 42.8 ml/min; Potassium 4.1 mmol/L (3.5-5.1)
[2024-06-12 18:47] LABS: Appearance Urine Cloudy (Clear); Bacteria Urine Automated None Seen (None Seen); Bilirubin Urine Negative (Negative); Blood Urine 3+ (Negative); Cast Urine Automated 0-2 /lpf (0-2); Color Urine Orange; Epithelial Cell Urine Auto 0-2 /hpf (0-2); Glucose Urine UA Negative (Negative); Ketones Urine Negative (Negative); Leukocyte Esterase Urine 2+ (Negative); Nitrite Urine Negative (Negative); Protein Urine 2+ (Negative); RBC Urine Automated >20 /hpf (0-2); Specific Gravity Urine 1.025 (1.000-1.030); Urobilinogen Urine Negative (Negative); WBC Urine Automated >50 /hpf (0-5); pH Urine 5.5 (4.5-7.5)
[2024-06-12 18:47] LABS: Troponin I High Sensitivity 20.1 pg/ml (0-20)
[2024-06-12] MEDS: D5W AND 1/2NSS + 20MEQ KCL 20 MEQ/1,000 ML BAG IV SCH (18:48)
[2024-06-12] MEDS: LANTUS PER UNIT CHARGE SC ONE (19:16)
[2024-06-12] MEDS: SODIUM CHLORIDE 0.9% 1,000 ML IV SCH (19:17)
[2024-06-12] MEDS: MIRTAZAPINE TAB 15 MG TAB PO SCH (20:52)
[2024-06-12] MEDS: INSULIN ASPART PER UNIT CHARGE SC SCH (20:52)
[2024-06-12] MEDS: rifAXIMin 550 MG TABLET PO SCH (20:53)
[2024-06-12] MEDS: PANTOprazole 40 MG in SYRINGE 0 ML IV SCH (20:53)
[2024-06-12] MEDS: LACTULOSE SYRUP 10 GM/15 ML BTL 960 ML PO SCH (20:55)
[2024-06-12] MEDS: CHOLESTYRAMINE LIGHT 4 GM PKT PO SCH (20:55)
[2024-06-12] MEDS ORDERED: INSULIN ASPART 100 UNITS/ML VIAL SC SCH (21:00)
[2024-06-12] MEDS ORDERED: LANTUS PER UNIT CHARGE SQ SCH (21:00)
--- OUTSIDE RECORDS SUMMARY | 2024-06-12 23:58 | External Medical Summary ---
Author Name Unknown Address Unknown Organization K01:[facility] [place] - [address] [facility] [place] [id number] Laboratory Report Ordering Provider Test Date Status PATRICIA LEAL 06/11/2024 10:09:07 Final Observation Date Value Abnormality Reference (Units ) Status BUN 06/11/2024 10:09:07 28 Above high normal 6-20 (mg/dL) Final Creatinine 06/11/2024 10:09:07 1.3 Above high normal 0.6-1.2 (mg/dL) Final Glomerular filtration rate/1.73 sq M.predicted [Volume Rate/Area] in Serum, Plasma or Blood by Creatinine-based formula (CKD-EPI) 06/11/2024 10:09:07 56 Below low normal >=60 (mL/min) Final eGFR is calculated based on the CKD-EPI 2020 equation Sodium 06/11/2024 10:09:07 140 135-146 (m mol/L) Final Potassium 06/11/2024 10:09:07 4.5 3.5-5.1 (m mol/L) Final Cl 06/11/2024 10:09:07 111 Above high normal 98 -107 (mmol/L) Final CO2 06/11/2024 10:09:07 18 Below low normal 22- 32 (mmol/L) Final Anion gap 06/11/2024 10:09:07 11 7-15 (mmol /L) Final Glucose 06/11/2024 10:09:07 145 Above high normal 70 -120 (mg/dL) Final Albumin 06/11/2024 10:09:07 3.7 Below low normal 3.8 -5.0 (g/dL) Final AST (Aspartate aminotransferase) 06/11/2024 10:09:07 38 10-50 (U/L) Fin al Alk Phos 06/11/2024 10:09:07 197 Above high normal 35 -130 (U/L) Final Bilirubin, Total 06/11/2024 10:09:07 2.0 Above high no rmal <=1.2 (mg/dL) Final Calcium 06/11/2024 10:09:07 9.5 8.4-10.2 ( mg/dL) Final Protein 06/11/2024 10:09:07 6.6 6.0-8.3 (g /dL) Final ALT (Alanine aminotransferase) 06/11/2024 10:09:07 17 10-50 (U/L) Layo dye Performing Location [facility] [place] - [address] [facility] [id number]
--- OUTSIDE RECORDS SUMMARY | 2024-06-12 23:58 | External Medical Summary | Summary of Care ---
Author Name Unknown Organization [facility] Address [address] [place] [address] Phone [phone] Care Team Providers Care Examiner Rating Clerk Name Role Phone Kristen Vences Primary Care Provider [phone] Reason for Referral * Precert (Within 10 days (routine)) - Authorized Specialty Diagnoses / Procedures Referred By Contac t Referred To Contact Radiology Diagnoses Hepatocellular carcinoma (HCC) Procedures MRI LIVER W WO CONTRAST Howie Gil DO [address] [place] [address] Referral ID Status Reason Start Date Expiration Date V isits Requested Visits Authorized [id number] Authorized 09/11/2024 999 999 * Precert (Within 10 days (routine)) - Authorized Specialty Diagnoses / Procedures Referred By Contac t Referred To Contact Radiology Diagnoses Hepatocellular carcinoma (HCC) S/P TIPS (transjugular intrahepatic portosystemic shunt) Procedures IR ARTERIAL EMBOLIZATION Chavez Sapp MD [address] [place] [address] Referral ID Status Reason Start Date Expiration Date V isits Requested Visits Authorized [id number] Authorized 05/16/2024 999 999 Reason for Visit * Precert (Within 10 days (routine)) - Authorized Specialty Diagnoses / Procedures Referred By Contac t Referred To Contact Radiology Diagnoses Hepatocellular carcinoma (HCC) S/P TIPS (transjugular intrahepatic portosystemic shunt) Procedures IR ARTERIAL EMBOLIZATION Chavez Sapp MD [address] [place] [address] Referral ID Status Reason Start Date Expiration Date V isits Requested Visits Authorized [id number] Authorized 05/16/2024 999 999 Encounter Details Date Type Department Care Team (Latest Contact Info) Description 06/11/2024 10:13 AM EDT - 06/11/2024 5:14 PM EDT Hospital Encounter Radiology Waiting Room [facility] [place] Hoodiza[place]han[address] [place] [address] Jacky Nevarez MD [address] [place] [address] Arrived Discharge Disposition: Home - Self Care Allergies No known active allergiesdocumented as of this encounter (statuses as of 06/12/2024) Medications Medication Sig Dispensed Refills Start Date End Date Status EllenTouch Raimundo In Vitro Strip (Glucose Blood)Indications:Ty pe [...] a meal.. 60 Packet 5 04/16/2024 Active Additional Information Patient not taking.Reported on 06/05/2024 oxyBUTYnin Chloride 5 MG Oral Tablet (Ditropan) Take 1 tablet by mouth every 8 hours as needed for bladder spasms. 30 Tablet 05/12/2024 Active Additional Information Patient not taking.Reported on 06/05/2024 Spironolactone 100 MG Oral Tablet (Aldactone) Take 1 Tablet by mouth in the morning. 05/30/2024 Active documented as of this encounter (statuses as of 06/12/2024) Active Problems Problem Noted Date Diagnosed Date [...] as of this encounter (statuses as of 06/12/2024) Resolved Problems Problem Noted Date Diagnosed Date [...] as of this encounter (statuses as of 06/12/2024) Immunizations Name Administration Dates Next Due COVID-19 mRNA, LNP-s, No Pre serve, 2-Dose Series ([employer]) 03/08/2021,02/15/2021 HepA Inact/HepB Recomb>=18yrs old 12/04/2019,04/2019,05/20/2019 11/19/2019 PPD 06/18/2017, 3,01/09/2012,06/2011 Pneumococcal Conjugate Vacc, 13 Valent (Prevnar) 05/01/2017 Pneumococcal Polysaccharide PPV23 (Pneumovax) 08/28/2022,10/25/2015,07/14/2012 Season Influenza, Quad, PF, Adjuvanted, 65+ Yrs, IM (FLUAD) 10/07/2020(Deferred: Patient Refused - pt says he already had his shot last month at [facility] Handy Lyons and Mckinley Cobian [...] money to get more. Never true 08/14/2023 Childcare Answer Date Recorded Do you feel overwhelmed with taking care of a child, family member or friend? No 08/14/2023 Does your family need help f inding childcare? (Household - for ages 0-17 years) Not on file 08/14/2023 Clothing Answer Date Recorded Have you been unable to get clothing when it was really needed? No 08/14/2023 Is your family able to get c lothes or diapers when needed? (Household - for ages 0-17 years) Not on file 08/14/2023 Personal Safety Answer Date Recorded Do you feel unsafe or have concerns for your saf ety? No 08/14/2023 Do you have concerns for you r family's safety? (Household - for ages 0-17 years) Not on file 08/14/2023 Utilities Answer Date Recorded Do you have trouble paying y our heating, water, or electric bill? No 08/14/2023 Is your family able to pay t he heat, water, or electric bill? (Household - for ages 0-17 years) Not on file 08/14/2023 Does your family have access to good internet? (Household - for ages 0-17 years) Not on file 08/14/2023 Employment Status Answer Date Recorded Are you unemployed or without regular income? No 08/14/2023 Does the household have a [facility] source [facility] income? (Household - for ages 0-17 years) Not on file 08/14/2023 Social Connections Answer Date Recorded How often do you feel lonely or isolated from th ose around you? Never 08/14/2023 Financial Resource Strain Answer Date R ecorded Do you have any trouble payi ng for your medications, or do you think you might in the future? No 08/14/2023 Does your family have troubl e paying for medicine? (Household - for ages 0-17 years) Not on file 08/14/2023 Transportation Needs Answer Date Record ed READ ONLY Do you have troubl e getting a ride to medical visits or work? Never True 08/14/2023 Does your family have a hard time getting a ride to doctors visits? (Household - for ages 0-17 years) Not on file 08/14/2023 Has lack of transportation k ept you from medical appointments, meetings, work, or from getting things needed for daily living? Check all that apply. (Adult - for ages 18 years and over) Not on file 08/14/2023 Do you (or your family) have trouble finding or paying for a ride (transportation)? (Household - for ages 0-17 years) Not on file 08/14/2023 Housing Stability Answer Date Recorded Do you currently live in a s helter or have no steady place to sleep at night? No 08/14/2023 READ ONLY Do you think you a re at risk of becoming homeless? No 08/14/2023 Does your family worry about paying for your home or becoming homeless? (Household - for ages 0-17 years) Not on file 0 08/14/2023 Are you homeless or worried that you might be in the future? (Adult - for ages 18 years and over) Not on file Are you (or your family) tomer eless or worried that you might be in the future? (Household - for ages 0-17 years) Not on file Food Insecurity Answer Date Recorded Do you need food for this week? No 08/14/2023 Are you able to get enough f ood for your family? (Household - for ages 0-17 years) Not on file 08/14/2023 Does your family need food t his week? (Household - for ages 0-17 years) Not on file 08/14/2023 Do you always have enough fo od for your family? (Household - for ages 0-17 years) Not on file 08/14/2023 Sex and Gender Information Value Date [...] Sign Reading Time Taken Comments Blood Pressure 156/66 06/11/2024 5:05 PM EDT Pulse 64 06/11/2024 5:05 PM EDT Temperature 36 C (96.8 F) 06/11/2024 5:05 PM EDT Respiratory Rate 13 06/11/2024 5:05 PM EDT Oxygen Saturation 98% 06/11/2024 5:05 PM EDT Inhaled Oxygen Concentration - - Weight - [...] No 05/08/2024 documented as of this encounter Discharge Instructions * Discharge Instr - AVS* Howie Gil, - 06/11/2024 11:44 AM EDT Discharge Date: 06/11/2024 Provider: Dr. Chavez Sapp If you are experiencing any problems related to your procedure, please contact Interventional Radiology at [phone] during normal business hours: Saturday - Saturday, 8:00 am - 4:00 pm. If a problem occurs outside of normal business hours, please call the hospital grinder set up operator thread tool at [phone] and ask for the Interventional Radiologist solar installation crew supervisor. Contact scheduling for Interventional Radiology at [phone] during normal business hours: Saturday - Saturday, 8:00 am - 4:00 pm. The information below provides you with the instructions and the list of medications you need to betaking following discharge from the hospital. If you have any questions, please ask before leaving.Please carry this letter with you when you see your doctor in the clinic. If you have questions, you can reach us at the numbers above. SPECIAL INSTRUCTIONS Chemoembolization / Martin Embolization of Liver Tumor You had a procedure called an angiogram. An angiogram is an X-ray examination of your arteries and can be used to look at arteries throughout the body. This procedure is performed by an Interventional Radiologist, a physician who specializes in minimally invasive, targeted treatments using imaging for guidance. During the angiogram, the Interventional Radiologist inserts a thin tube (a catheter) into one of your arteries through a very small incision in the skin, about the size of a pencil tip.Contrast (X-ray dye) is then injected into the artery while X-rays are taken of the area. The contrast makes the artery visible on the X-rays. You also underwent embolization of the tumor where blood supply to the tumor was blocked. The angiogram helps your physician plan the best treatment for you. Home Care Keep dressing clean, dry, and intact for 3 days; change as needed. Do only light and easy activities for 2 to 3 days after the procedure. Avoid strenuous activity for 1 week after the procedure. You may shower after 24 hours. Gently wash the area and pat it dry. Please DO NOT take a bath, soak in a hot tub, or swim until the wound is completely healed. Unless told otherwise, drink 6 to 8 glasses of water a day to prevent dehydration and to help flushyour body of the dye that was used during your procedure. Take your temperature and check your incision for signs of infection (redness, swelling, or warmth at the incision site) every day for a week. If your site starts to bleed or swell (access site - wrist), keep wrist raised above the level of the heart and apply pressure to the site for 15 minutes. After the bleeding has stopped, continue to keep your arm raised and contact Interventional Radiology. If bleeding does not stop after 15 minutes, call 911 for emergency assistance or go to the closest Emergency Department. If your incision starts to bleed or swell (access site - groin), lay flat and have someone apply pressure to the incision site for 15 minutes. After the bleeding has stopped, continue to lay flat cassandra hour and contact Interventional Radiology. If bleeding does not stop after 15 minutes, call 911 for emergency assistance or go to the closest Emergency Department. Follow Up After your procedure you will be instructed regarding follow up treatment, imaging, or a clinic visit. You will be called with the date/time for this appointment. If you do not receive a call within 4 weeks, please call our schedulers at [phone]. When to Call Interventional Radiology Call Interventional Radiology right away if you have any of the following: Fever above 100 degrees Fahrenheit Increased bleeding, redness, swelling, warmth, or discharge at the incision site. Constant or increasing pain, numbness, coldness, or tingling around the incision area. If at any time you experience any of the following or feel you are having a medical emergency, [id number] for emergency assistance. Chest Pain Sudden, severe shortness of breath Rapid heart rate Sudden onset of weakness Coughing up blood Do not smoke or use tobacco products in any way! If you feel suicidal or homicidal, please call the crisis hotline at [phone] ([phone]) MODERATE SEDATION You may have received medication that made you comfortable/sedated you during your procedure. This is considered moderate sedation. This medication was given to relax you. You may also not remember having the procedure done. It may take up to 24 hours for this medication to be out of your system. Because of this, you should observe the following for the next 24 hours: Do not drink alcohol or take depressant drugs. Do not operate any type of machinery that requires hand-eye coordination. Do not sign any legal papers or documents. Do not make any financial decisions. You should be in the presence of an adult for the remainder of the day. If you are experiencing any problems related to your procedure, you should contact the Interventional Radiology physician unless otherwise directed. Driving: You may resume driving tomorrow. Diet: You may resume your current diet as tolerated. documented in this encounter H&P Notes * Chavez Sapp MD - 06/11/2024 11:38 AM EDT HISTORY & PHYSICAL - Vascular and Interventional Radiology Name: Luis Hale Location: IR HISTORY OF PRESENT ILLNESS: Luis Hale is a 74 year old male patient with a history of DM, prostate CA, cirrhosis with portalhypertension s/p TIPS, and HCC who presents for transarterial bland embolization. The patient was found to have viable tumor in segments II and IVB/V on the CT dated 04/10/24. Patient denies chest pain, shortness of breath, fever, chills, nausea, vomiting or diarrhea. Past Medical History: Diagnosis Date Acquired thrombocytopenia (HCC) 09/05/2017 Allergic rhinitis Anemia 12/2023 required transfusion Anxiety and depression Aortic valve sclerosis 02/01/2023 Benign neoplasm of colon 04/16/2013 COLONOSCOPY FLEXIBLE PROXIMAL DIAGNOSTIC performed by Salvador Lopez MD at ENDOSCOPY [facility], adenomatous polyps repeat colonoscopy in 3 [...] performed by Cody Gonzalez DO at OR [facility] CATARACT SURGERY,COMPLEX Left 04/23/2023 LEFT EXTRACAPSULAR CATARACT REMOVAL COMPLEX WITH IOL performed by Cody Gonzalez DO at OR [facility] COLONOSCOPY 08/27/2005 [place]/hemorrhoids non internal COLONOSCOPY, DIAGNOSTIC (RECTUM) 04/16/2013 COLONOSCOPY FLEXIBLE PROXIMAL DIAGNOSTIC performed by Salvador Lopez MD at ENDOSCOPY [facility], adenomatous polyps repeat colonoscopy in 3 years COLONOSCOPY, DIAGNOSTIC (RECTUM) 05/03/2016 adenomatous polyps, diverticulosis, repeat 5 yrs/COLONOSCOPY FLEXIBLE PROXIMAL DIAGNOSTIC performedby Salvador Lopez MD at ENDOSCOPY [facility] COLONOSCOPY, DIAGNOSTIC (RECTUM) 07/19/2020 adenomatous & hyperplastic polyps, diverticulosis, repeat 3 yrs / [facility] COLONOSCOPY, DIAGNOSTIC (RECTUM) 11/30/2021 mild XRT proctitis, diverticulosis / COLONOSCOPY FLEXIBLE PROXIMAL DIAGNOSTIC performed by Barbara March DO at ENDOSCOPY [facility] COLONOSCOPY, DIAGNOSTIC (RECTUM) 02/01/2022 Mild XRT proctitis / COLONOSCOPY FLEXIBLE PROXIMAL DIAGNOSTIC performed by Barbara March DO at ENDOSCOPY [facility] COLONOSCOPY, DIAGNOSTIC (RECTUM) N/A 11/07/2022 poor prep/diverticulosis sigmoid colon/rectal angioectasias consistent with radiation proctopathy/[place] COLONOSCOPY, DIAGNOSTIC (RECTUM) N/A 08/09/2023 poor prep/moderate diverticulosis/hemorrhoids/biopsies show adenomatous and hyperplastic polyps/recall 1 years/Colonoscopy/[place] ABDOMEN W IV AND W ORAL CONTRAST 01/10/2010 CYSTOSCOPY, REMOVAL OF CLOTS N/A 05/09/2024 CYSTOURETHROSCOPY WITH IRRIGATION AND EVACUATION OF CLOTS performed by Luis Whitehead MDa OR [facility] CYSTOSCOPY/TREAT LGE BLADDER TUMOR N/A 05/09/2024 CYSTOURETHROSCOPY WITH FULGURATION LARGE BLADDER TUMOR performed by Luis Whitehead MD at[facility] CYSTOSCOPY/TREAT MED BLADDER TUMOR N/A 01/30/2024 CYSTOURETHROSCOPY WITH FULGURATION MEDIUM BLADDER TUMOR performed by Frank Peraza MD at OR [facility] EGD, FLEXIBLE, DIAGNOSTIC 07/22/2014 GE varices oozing blood, gastric polyp/ESOPHAGOGASTRODUODENOSCOPY (EGD), FLEXIBLE, TRANSORAL, DIAGNOSTIC performed by Juaquin Arrington MD at ENDOSCOPY [facility] EGD, FLEXIBLE, DIAGNOSTIC 07/23/2014 ESOPHAGOGASTRODUODENOSCOPY (EGD), FLEXIBLE, TRANSORAL, DIAGNOSTIC performed by Sophie Merino MD at [facility] EGD, FLEXIBLE, DIAGNOSTIC 06/02/2019 eso & gastric varices, gastric polyps/ESOPHAGOGASTRODUODENOSCOPY (EGD), FLEXIBLE, TRANSORAL, DIAGNOSTIC performed by Salvador Lopez MD at ENDOSCOPY [facility] EGD, FLEXIBLE, DIAGNOSTIC 03/25/2020 portal hypertensive gastropathy, esophageal varices / INPT [facility] EGD, FLEXIBLE, DIAGNOSTIC 07/19/2020 eso varices, portal hypertensive gastropathy, repeat 3 mo / [facility] EGD, FLEXIBLE, DIAGNOSTIC 10/25/2020 Portal hypertensive gastropathy, eso varices / [facility] EGD, FLEXIBLE, DIAGNOSTIC 08/202222 Grade I esophageal varices / [facility] EGD, FLEXIBLE, DIAGNOSTIC N/A 09/11/2022 grade II esophageal varices/gastric antral vascular ectasia, treated with APC/repeat 3 months/E[place] EGD, FLEXIBLE, DIAGNOSTIC N/A 11/07/2022 grade III esophageal varices, banded/gastric antral vascular ectasia/repeat 2 months/[place] EGD, FLEXIBLE, DIAGNOSTIC N/A 02/01/2023 [facility]< egd. / single G2 varix, banded and varices eradicated / no specimens collected / egd in 1 to 2 months / EGD, FLEXIBLE, DIAGNOSTIC N/A 08/09/2023 portal hypertensive gastropathy/repeat 1 year/[place] EGD, FLEXIBLE, DIAGNOSTIC 05/22/2023 GAVE, repeat 4-6 wks / [facility] IR CANCER THERASPHERE EMBOLIZATION 03/28/2022 IR EMBOLIZATION Left 04/18/2021 IMAGING SUPERVISION & INTERPRETATION TRANSCATHETER THERAPY, EMBOLIZATION performed by Kevin Lim DO at OR [facility] IR EMBOLIZATION ARTERIAL NON HEMMORHAGE Left 02/21/2022 EMBOLIZATION ARTERIAL; SUPERVISION & INTERPRETATION performed by Kevin Lim DO at OR [facility] IR EMBOLIZATION ARTERIAL NON HEMMORHAGE Left 06/05/2022 EMBOLIZATION ARTERIAL; SUPERVISION & INTERPRETATION performed by Kevin Lim DO at OR [facility] IR VENOUS TIPS 10/07/2020 REMOVAL OF TONSILS, UNDER AGE 12 age 6-7 Tonsils Removal,<12 Y/O SIGMOIDOSCOPY, DIAGNOSTIC 04/12/2022 radiation proctitis, diverticulosis / [facility] TIPS, REVISION N/A 01/24/2021 REVISION TRANSVENOUS INTRAHEPATIC PORTOSYSTEMIC SHUNT performed by Kevin Lim DO at OR [facility] TIPS, REVISION Right 10/19/2022 REVISION TRANSVENOUS INTRAHEPATIC PORTOSYSTEMIC SHUNT performed by Howie Valdovinos MD at OR [facility] TIPS, REVISION Right 02/20/2023 REVISION TRANSVENOUS INTRAHEPATIC PORTOSYSTEMIC SHUNT performed by Kevin Lim DO at OR [facility] 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 Socioeconomic History Marital status: [...] No Self-Exams Not Asked 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, 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 2 cats [...] Stability Do you currently live in a longterm or have no steady place to sleep [...] - for ages0-17 years): Not on file Family History Problem Relation Name Age of Onset Lung cancer Mother smoker Cancer Father colon, at 63 Musculo-skeletal Disorder Father aspvd in father and brothers Psoriasis Father Alcohol and Other Disorders Associated Father Other (Other) Father denies any family history of skin diseases or skin cancer No Known Problems Sister Laura Cancer Brother Rishabh pancreatic Alcohol and Other Disorders Associated Brother Arik Heart disease Brother Arik Other (Other) Brother Arik Agent [place] exposure Neurological Disorder Daughter Joan epilepsy No Known Problems Daughter Kaylie Cervical Cancer Daughter Kriss Uterine cancer Daughter Kriss Thyroid cancer Daughter Kriss Cancer Grandmother (Paternal) unkown, in 80s Diabetes Other Hypertension Other Heart Disorder Other Stroke Other Review of patient's allergies indicates: No Known Allergies No current facility-administered medications for this encounter. REVIEW OF SYSTEMS: Per HPI. OBJECTIVE: PHYSICAL EXAM: There were no vitals taken for this visit. Constitutional: no acute distress HEENT: mucous membranes moist Neck: supple CV: regular Chest: normal respiratory effort Neuro: alert and oriented Medications, labs and imaging were reviewed. PRE-SEDATION ASSESSMENT: Transarterial Martin Embolization Level of sedation planned: Moderate Patient's allergies reviewed: Yes H&P Review / Interval Note Documentation: I have reviewed the H&P previously performed, examined the patient today, and there are no new findings. Difficulty with sedation / anesthesia: No Sleep apnea: No History of snoring: Yes History of difficult intubation: No Decreased ROM neck flexion/extension: No Tracheal deviation: No Decreased ability to open mouth / TMJ: No Loose teeth / dentures / partial: No Congenital deformities / abnormalities: No Dysphagia: No Mallampati Classification: II - soft palate, uvula, fauces visible Chest: Clear Heart: Regular Rhythm ASA Risk Stratification (Select One): ASA 3 - Severe systemic disease, definite functional limitations The patient was identified and the procedure verified: Yes The patient was reevaluated immediately prior to the sedation: 06/11/2024 11:42 AM IMPRESSION/PLAN: Luis Hale is a 74 year old male patient presenting for transarterial bland embolization of hepatic tumors. Plan to proceed under moderate sedation. I have discussed the patient's management with the resident/fellow physician and agree with the note. Please refer to the documented findings and plan of care. This patient's visit today consisted ofa service. I was readily available for immediate [id number] consultation and assistance. I have reviewed the medical history, physical examination, diagnosis, and plan. Chavez Sapp MD, PHI Vascular and Interventional Radiology, documented in this encounter Nursing Notes * Stefany Torres RN - 06/11/2024 5:13 PM EDT DISCHARGE - POST INTERVENTIONAL RADIOLOGY PROCEDURE Patient meets discharge criteria for Interventional Radiology. Vital signs stable. Dressing clean, dry, and intact. IV site removed. Patient awake and oriented to pre procedure baseline. Discharge instructions given, no questions at this time. Patient tolerating liquids, with no nausea/vomiting. All belongings sent with patient. Discharged to home. Vital Signs: BP: 156/66 (06/11/241704) Temp: 36 C (96.8 F) (06/11/241704) Pulse: 64 (06/11/241704) Resp: 13 (06/11/241704) SpO2: 98 % (06/11/241704) Neurological: Eloise Coma Scale Eyes Open: Spontaneous (06/11/241704) Best Verbal Response: Verbally appropriate for age (06/11/241704) Best Motor Response: Obeys commands appropriate for age (06/11/241704) Coma Score: 15 (06/11/241704) Activity: Four Extremities LOC: Fully Awake or Pre-Anesthetic Level of Consciousness BP: Less than (+/-) 20% Resp: Deep Breathe and Cough Freely (06/11 0198) Respiratory: Pain Assessment Flowsheet Row Most Recent Value Pain Assessment Scale [facility] Adult Scale 0-10 Pain Score 0 (no pain) * Davonte Smith RN - 06/11/2024 2:53 PM EDT machine fitter note Name: Luis Hale Date: 06/11/2024 Time: 12:26 PM Procedure: Angiogram with Embolization Patient ID band checked using two identifiers. Patient placed on procedure table, supine position, with comfort measures intact and safety strap in place. Hemodynamic monitoring placed and initiated.Distal pulses palpable and marked. Patient denies any current complaints at current time. RT staff prepares and preps for procedure. 12:40 PM 50 mcg Fentanyl given for patient comfort. Reevaluation statement: RN received verbal confirmation that the patient was reevaluated by Dr. Chavez Sapp immediately prior to the sedation at 12:52 PM. Procedure by physician. 12:49 PM Timeout performed by Dr. Chavez Sapp 12:52 PM 1 mg Versed given for patient comfort. 12:53 PM Procedure started by Dr. Chavez Sapp and Dr. Howie Gil, and scrubbed RT Heber Mccallum Ultrasound utilized for anatomical analysis of patient and access needle guidance. 1% buffered lidocaine given by doctor at right groin site. 12:57 PM Access obtained. Guidewire inserted. Images obtained. 1:02 PM 50 mcg Fentanyl given for patient comfort. 1:19 PM 0.5 mg Dilaudid given for patient comfort. 1:[address] images obtained. 1:34 PM 100 mcg Nitroglycerin given by doctor into IR access. 1:48 PM 0.5 mg Dilaudid given for patient comfort. Imaging continues. 2:12 PM Imaging continues. 2:25 PM Selective embolization with imaging by doctor, embospheres utilized. 2:47 PM Mynx closure device placed. Access removed and manual pressure to site. Procedure ends. 2:53 PM Hemostasis obtained. Area cleaned. Gauze and Tegaderm dressing applied. Patient tolerated procedure well without complications. All wires, catheters, sheaths and other devices have been inspected prior to the procedure for damage. This has been confirmed by the scrubbed RT and the operating physician. All items not intended to remain in the patient have been inspected, accounted for and have been removed from the patient atthe end of the procedure. This has been confirmed by the scrubbed RT and the operating physician. Pt did receive conscious sedation for their procedure, and was sedated from 12:52 PM to 3:00 PM. Total medications given Versed: 1 mg Fentanyl: 100 mcg Dilaudid: 1 mg Nitroglycerin: 100 mcg Dexamethasone Sodium Phosphate: 20 mg Zofran: 8 mg Benadryl: 50 mg Unasyn: 3 g 1% buffered lidocaine: 5 mL Please see doctor's operative note for additional details. * Kriss Apple LPN - 06/11/2024 11:30 AM EDT PRE PROCEDURE SEDATION ASSESSMENT [facility] INTERVENTIONAL RADIOLOGY Information obtained via phone call? yes/no: yes Chart review? yes/no: no Spoke with patient/caregiver(name)? yes/no: patient IR procedure to be performed: Martin Embo Patient with recent illness (within 2 weeks): yes/no: no Sleep apnea? yes/no: no Uses cpap/bipap? yes/no: no Home O2 use(LPM)? yes/no: yes Difficulty breathing when lying flat? yes/no: no Infectious Disease? (MRSA, VRE, CDIFF, TB, Hepatitis, HIV/Aids, COVID-19 other): yes/no: no History of falls (past 6 months)? yes/no: no Ambulation aid (walker, cane, crutches, wheelchair)? yes/no: yes walker History of anesthesia complications (prolonged awakening, PONV, difficult airway)? yes/no: no Able to fully extend neck, turn head side to side and open mouth? yes/no: yes If female (11-55) chance of ? not applicable Contrast Dye Allergy? yes/no: no Allergy prepped ordered ? NO Review of systems Pulmonary complications? (COPD/Emphysema, Asthma, Oxygen use, tobacco history, shortness of breath,PE, Pulm HTN): yes/no: yes Allergic rhinitis Restrictive ventilatory defect Lung disease, restrictive Cardiovascular complications? (HTN, Pacemaker/defib, W[place], Arrhythmia, CHF, Heart Murmur, Heart surgery): yes/no: yes Pulmonary hypertension (HCC) GAVE (gastric antral vascular ectasia) Esophageal varices (HCC) Portal vein thrombosis Prolonged Q-T interval on ECG Mild mitral regurgitation Aortic valve sclerosis Metabolic/Diabetes history? (Diabetes, steroid use, thyroid disease, obesity): yes/no: yes Type 2 diabetes mellitus with hemoglobin A1c goal of less than 7.0% (HCC) Type 2 diabetes mellitus with stage 3a chronic kidney disease, with long-term current use of insulin (HCC) Pancreas cyst Dyslipidemia, goal LDL below 100 Chronic gout of multiple sites Hematology/Oncology complications? (Anemia, bleeding/clotting disorder, anticoagulation/coagulopathy, cancer): yes/no: yes Acquired thrombocytopenia (HCC) Iron deficiency anemia Chronic anemia Anemia due to stage 3a chronic kidney disease (HCC) Pancytopenia (HCC) Gastrointestinal complications? (Hernia, reflux, ulcers, liver problems, ostomy, IBS, diverticulitis): yes/no: yes Cirrhosis of liver (HCC) Esophageal reflux Liver cell carcinoma (HCC) Radiation proctitis Protein-calorie malnutrition (HCC) Gynecological complications? (Fibroids, PCOS) not applicable Genitourinary complications? (Kidney, bladder, prostate) yes/no: yes Acquired renal cyst Chronic kidney disease, stage 3a (HCC) Prostate cancer (HCC) Radiation cystitis Musculoskeletal complications? (Arthritis, contractions, amputations, other bone/joint): yes/no: yes Closed T12 spinal fracture (HCC) Psoriasis Neuro/Psych complications? (Seizures, stroke, mental handicap, paralysis, neuropathy, depression, anxiety, migraines, substance abuse): yes/no: no documented in this encounter Plan of Treatment Upcoming Encounters Date Type Department Care Team (Late st Contact Info) Description 06/16/2024 7:00 AM EDT Laboratory [facility] [address] [address] [facility] [address] [place] [address] [address] 06/23/2024 7:00 AM EDT Laboratory [facility] [address] [place] [address] [facility] [address] [place] [address] 06/23/2024 2:00 PM EDT Office Visit Hematology/Oncology [facility] [address] [facility] [place] [phone] Ayaka Tatum CRNP [address] [place] [address] 06/30/2024 7:00 AM EDT Laboratory [facility] [address] [place] [address] [facility] [address] [place] [address] 07/07/2024 7:00 AM EDT Laboratory [facility] [address] [place] [address] [facility] [address] [facility] [place], [place] [address] 07/08/2024 1:00 PM EDT Office Visit Nephrology, [facility] [address] [facility] [place], [place] [address] Franki Herbert MD [address] [facility] [place], [place] [address] 07/09/2024 9:40 AM EDT Office Visit Family Practice [facility] [address] [address] Kristen Vences DO [address] [address] 07/14/2024 7:00 AM EDT Laboratory [facility] [address] [place] [address] [facility] [address] [place] [address] 07/21/2024 7:00 AM EDT Laboratory [facility] [address] [place] [address] [facility] [address] [place], [place] [address] 07/23/2024 9:30 AM EDT Office Visit Cardiology, [facility] [address] [facility] [place] [address] Carlee Salazar CRNP [address] [place] [address] 07/28/2024 7:00 AM EDT Laboratory [facility] [address] [place] [address] [facility] [address] [place] [address] 07/28/2024 2:00 PM EDT Office Visit Nephrology, [facility] [address] [place], [place] [address] Franki Herbert MD [address] [place], [place] [address] 08/04/2024 7:00 AM EDT Laboratory [facility] [address] [place] [address] [facility] [address] [place], [place] [address] 08/11/2024 7:00 AM EDT Laboratory [facility] [address] [place], [place] [address] [facility] [address] [place], [place] [address] 08/18/2024 7:00 AM EDT Laboratory [facility] [address] [place] [address] [facility] [address] [place], [place] [address] 08/20/2024 10:15 AM EDT Office Visit Ophthalmology, [facility] [address] [place] [address] Cody Gonzalez, DO [address] [address] 08/25/2024 7:00 AM EDT Laboratory [facility] [address] [facility], [place] [address] [facility] [address] [place] [employer] [facility], [place] [address] 09/01/2024 7:00 AM EDT Laboratory [facility] [address] [facility], [place] [address] [facility] [address] [place] [employer] [facility], [place] [address] 09/08/2024 7:00 AM EDT Laboratory [facility] [address] [facility] [address] [facility] [address] [place] [address] 09/15/2024 7:00 AM EDT Laboratory [facility] [address] [facility] [place] [address] [facility] [address] [place] [employer] [place], [place] [address] 09/22/2024 7:00 AM EDT Laboratory [facility] [address] [address] [facility] [address] [place] [employer] [place] [address] 09/29/2024 7:00 AM EDT Laboratory [facility] [address] [facility] [place], [place] [address] [facility] [address] [place] [employer] [place], [place] [address] 10/06/2024 7:00 AM EST Laboratory [facility] [address] [place], [place] [address] [facility] [address] [place] [employer] [facility], [place] [address] 10/12/2024 10:20 AM EST Office Visit Pulmonary Medicine, [facility] [address] [place] [address] Jordan Stanley MD [address] [place] [address] 10/13/2024 7:00 AM EST Laboratory [facility] [address] [address] [facility] [address] [place] [employer] [place] [address] 10/20/2024 7:00 AM EST Laboratory [facility] [address] [facility] [address] [facility] [address] [place] [employer] [place] [address] 10/27/2024 7:00 AM EST Laboratory [facility] [address] [place] [address] [facility] [address] [place] [employer] [place] [address] 10/30/2024 10:00 AM EST Office Visit Urology Lynentte Fitzpatrick [address] [address] [address] Frank Peraza MD [address] [address] Pending Results Name Type Priority Associated Diagnoses Date /Time IR ARTERIAL EMBOLIZATION Medical Imaging Routine Hepatocellular carcinoma (HCC) S/P TIPS (transjugular intrahepatic portosystemic shunt) 06/11/2024 2:41 PM EDT Scheduled Orders Name Type Priority Associated Diagnoses Orde r Schedule MRI LIVER W WO CONTRAST Medical Imaging Routine Hepatocellular carcinoma (HCC) Expected: 09/11/2024, Expires: 07/12/2025 Scheduled Procedures Name Priority Associated Diagnoses Date/Ti [...] 01/17/2024 01/17/2023, , 01/17/2023, Additional history exists Influenza Vaccine (FLU shot) (#1) 2024 10/11/2023, 09/15/2021, 09/15/2021, Additional history exists Colonoscopy 08/09/2024 08/09/2023, 1206/2022, 11/07/2022, Additional history exists Colorectal Cancer Screening 08/09/2024 HbA1c 10/08/2024 04/07/2024, 11/02, 05/28/2023, Additional history exists GFR 12/12/2024 06/11/2024, 07/0 08/2024, 05/19/2024, Additional history exists Albumin/Creatinine Ratio 05/19/20252 024, 07/12/2023, 10/01/2022, Additional history exists CKD PHOS USE SMARTSET 11468 05/19/2025 0607/2024, 05/08/2024, 04/07/2024, Additional history exists Diabetic Foot Exam 05/19/2025 05/19/2024, 0 03/06/2023, 01/03/2022, Additional history exists CKD HGB USE SMARTSET 32684 06/11/202506/11, 06/09/2024, 06/09/2024, Additional history exists Sigmoidoscopy 04/12/2027 04/12/2022 Lipid [...] Discontinued 08/09/2023, 11/07/2022, 11/07/2022, Additional history exists Zoster Vaccines Completed 03/22/2024, 10/18/2023 HPV (Gardasil) Vaccine Aged Out No lo nger eligible based on patient's age to complete this topic MENINGOCOCCAL (MENACTRA/MENVEO) Aged Out No longer eligible based on patient's age to complete this topic documented as of this encounter Medical Devices Implanted Type Area Merchandise Planner Device Identifier Shelf Expiration Date Model / Serial / Lot Clareon Iol Aspheric Hydrophobic Acrylic Iol Implanted:Qty: 1 on 04/23/2023 by Cody Gonzalez DO at [facility] Lens Left: Eye 11/12/2025 [id number] / [id number] / Viatorr Tips Endoprosthesis 8-10 Mm X 8cm / 2cm Implanted:Qty: 1 on 10/07/2020 by Go Alvarado MD at [facility] Right: Abdomen 03/03/2023 [id number] / / [id number] Description:Viatorr TIPS End oprosthesis 8-10 mm x 8cm / 2cm, Manufactored by [employer] Syr Pf 2ml Embospheres 100-300 - [id number] Implanted:Qty: 1 on 04/18/2021 by Kevin Lim DO at [facility] Left: Abdomen [employer] [id number] 11/25/2023 [id number] / / [id number] Lipiodol Injection - [id number] Implanted:Qty: 1 on 03/28/2022 at [facility] [employer] 03/01/2023 [id number] 01-2 / / [id number] Syr Pf 2ml Embospheres 100-300 - [id number] Implanted:Qty: 1 on 03/28/2022 at [facility] [employer] [id number] 08/31/2024 S220GH / / [id number] -[id number] Clareon Iol Aspheric Hydrophobic Acrylic Iol Implanted:Qty: 1 on 04/02/2023 by Cody Gonzalez DO at [facility] Right: Eye JAZMIN 11/12/2025 [id number] / [id number] / Syr Pf 2ml Embospheres 100-300 - [id number] Implanted:Qty: 1 on 06/11/2024 at [facility] [employer] [id number] 01/02/2027 S220GH / / [id number] -[id number] Cath Diag Cobra 2 [id number] - [id number] Implanted:Qty: 1 on 06/11/2024 at [facility] [employer] [id number] 10/06/2026 [id number] / / [id number] documented as of this encounter Procedures Procedure Name Priority Date/Time Associated Diagnosis Comments IR ARTERIAL EMBOLIZATION Routine 06/11/2024 2:41 PM EDT Hepatocellular carcinoma (HCC) S/P TIPS (transjugular intrahepatic portosystemic shunt) Procedure Note - Chavez Sapp MD / Howie Gil DO - 06/11/2024 2:41 PM EDTThis note is in progress. PROCEDURE: Visceral and hepatic angiography with transarterial bland embolizationusing embospheres. INDICATION: 74-year-old male patient with a history of DM, prostate CA,cirrhosis with portal hypertension s/p TIPS, and HCC who presents fortransarterial bland embolization. The patient was found to have viabletumor in segments II and IVB/V. ATTENDING (OPERATING PHYSICIAN): Marcia Caal MD SCRUBBED RESIDENT (OPERATING PHYSICIAN): Howie Gil D.O. SUPPORTING PROVIDER (RUNNING RIGGER): None. CONSENT: After a detailed discussion of the procedure, risks, benefits,and alternative treatment options, informed consent was obtained. TIME OUT: A time out procedure was performed. The patient's identificationwas verified. Informed consent with agreement of procedure, site andposition was obtained. All necessary equipment was available prior toprocedure. CONTRAST: IV Optiray 320. COMPLICATIONS: None. ANESTHESIA: Local lidocaine. IV Versed. IV Fentanyl. SEDATION TIME: Start to end: 1252 to 1500. Qualified nurse sedationobserver Paulie Nicolas RN. MEDICATIONS: See MAR PROCEDURE DESCRIPTION: Using real-time ultrasound guidance, the right common femoral artery waspunctured and access was secured. Digital ultrasound images of the arterywere acquired and digitally archived. A limited right lower extremityangiogram was performed. Over a Bentson wire, a 5 Fr sheath was placed andattached to a saline infusion. A 5 Fr SOS catheter-Bentson wire combination was used for sequentialcatheterization and angiography of the celiac artery. Intermittentcontrast injection and fluoroscopy confirmed selection of the artery,followed by digital subtraction angiography (DSA). To improvevisualization of the area of concern, super selective catheterization ofthe common hepatic, proper hepatic and right hepatic arteries wasperformed with a Progreat microcatheter and multiple microwire's. DSA andcatheter CT was performed. The microcatheter was further advanced into multiple right hepatic [id number] order branches. DSA and catheter CT was repeated for every branchinterrogated. After the direct blood supply of the segment IV/V masscould not be elucidated, the microcatheter was slightly withdrawn into thecommon hepatic artery and DSA was repeated. The microcatheter was subsequently advanced into a 2nd order branch of theleft hepatic artery. DSA and catheter CT were repeated. Afterconfirmation with optimal positioning of the microcatheter within thechosen vessel, 100-300 m embospheres were then infused. Fluoroscopicimages were digitally archived. A post-embolization control arteriogramwas performed. All catheters and wires were removed and a limited right lower extremityangiogram was performed. The access sheath was then removed and hemostasiswas achieved using manual compression and a failed Mynx vascular closuredevice. The site was dressed. The peripheral pulses were intact. The procedure was performed under the personal supervision of who was present for the entire procedure. FINDINGS: 1. Access: The right common femoral artery is anechoic. Ultrasound-guidedaccess was obtained. Fluoroscopic imaging demonstrates access to thecommon femoral artery overlying the inferomedial aspect of the rightfemoral head. 2. Celiac/hepatic arteries: Digital subtraction angiography demonstratesthat there is conventional celiac arterial anatomy. The right and lefthepatic artery 2nd order and 3rd order branches are small and tortuous. A2nd order left hepatic artery branch supplies the segment II mass and asmall amount of normal liver parenchyma. The direct blood supply for thesegment IVB/V mass is not seen on DSA. The gastroduodenal artery isidentified. No concerning collateral arteries are identified. 3. Catheter CT and three-dimensional reconstructions: Cirrhotic liver withenhancing masses seen in segments II and IVB/V. 4. Left hepatic artery: Infusion of the embospheres was performed afteroptimal catheter placement was confirmed on fluoroscopy and catheter CT.There is adequate trimming of the branches supplying the left hepaticartery branches supplying the segment II mass with some residual antegradeflow and reflux of contrast. 5. Right lower extremity: Patent external iliac, internal iliac, commonfemoral, and visualized superficial femoral artery and profunda IMPRESSION IMPRESSION: Successful transarterial bland embolization using microspheres in the lefthepatic lobe. PLAN: 1. The patient must lie flat and still for 2 hours postprocedure. 2. Follow-up MRI liver mass protocol in 3 months. 3. Will schedule a telephone call/clinic visit after follow-up imaging isobtained. documented in this encounter Visit Diagnoses Diagnosis Hepatocellular carcinoma (HCC) Malignant neoplasm of liver, primary S/P TIPS (transjugular intrahepatic portosystemic shunt) Other postprocedural status documented in this encounter Administered Medications Inactive Administered Medications - up to 3 most recent administrations Medication Order MAR Action Action Date Dose Rate Site ampicillin-sulbactam in NSS (Unasyn) ivpb 3 g 3 g, IV Piggyback, ONCE, 1 dose, On Sharon 06/11/24 at 1230, MIX BEFORE ADMINISTERING! New Bag 06/11/2024 11:55 AM EDT 3 g 210 mL/hr buffered lidocaine 1 % inj Intradermal, ONCE PRN INTRA PROCEDURE, Starting on Sharon 06/11/24 at 1253, Until Sharon 06/11/24 at 2114, Intra-Op Given 06/11/2024 12:53 PM EDT 5 mL Other-Specify dexamethasone sodium phosphate 20 mg in NSS 50 mL ivpb 20 mg, IV Piggyback, ONCE, On Sharon 06/11/24 at 1245, For 1 dose, PROTECT FROM LIGHT Infuse over 30 minutes! New Bag 06/11/2024 12:56 PM EDT 20 mg 108 mL/hr diphenhydrAMINE (Benadryl) inj 50 mg 50 mg, IV Push, ONCE, On Sharon 06/11/24 at 1245, For 1 dose Given 06/11/2024 12:39 PM EDT 50 mg fentaNYL (PF) inj ONCE PRN INTRA PROCEDURE, Starting on Sharon 06/11/24 at 1240, Until Sharon 06/11/24 at 2113, Intra-Op Given 06/11/2024 1:02 PM EDT 50 mcg Given 06/11/2024 12:40 PM EDT 50 mcg HYDROmorphone (Dilaudid) inj ONCE PRN INTRA PROCEDURE, Starting on Sharon 06/11/24 at 1319, Until Sharon 06/11/24 at 2113, Intra-Op Given 06/11/2024 1:48 PM EDT 0.5 mg Given 06/11/2024 1:19 PM EDT 0.5 mg Iopamidol (Isovue 300) inj 400 mL 400 mL, Intravenous, ONCE, On Sharon 06/11/24 at 1530, For 1 dose, Intra-Op Given 06/11/2024 3:30 PM EDT 307 mL midazolam (Versed) 2 MG/2ML inj ONCE PRN INTRA PROCEDURE, Starting on Sharon 06/11/24 at 1252, Until Sharon 06/11/24 at 2113, Intra-Op Given 06/11/2024 12:52 PM EDT 1 mg nitroglycerin (100 mcg/mL) inj ONCE PRN INTRA PROCEDURE, Starting on Sharon 06/11/24 at 1334, Until Sharon 06/11/24 at 2113, Intra-Op Given 06/11/2024 1:34 PM EDT 100 mcg NSS infusion Intravenous, at 125 mL/hr, CONTINUOUS, Starting on Sharon 06/11/24 at 1245, Until Sharon 06/11/24 at 2114 New Bag 06/11/2024 12:38 PM EDT 125 mL/hr ondansetron (Zofran) inj 8 mg 8 mg, IV Push, ONCE, On Sharon 06/11/24 at 1245, For 1 dose Given 06/11/2024 12:39 PM EDT 8 mg documented in this encounter Active and Recently Administered Medications Times are shown in EDT. Scheduled Medication Order 06/09/2024 06/10/2024 06/11/2024 ampicillin-sulbactam in NSS (Unasyn) ivpb 3 g (COMPLETED) 3 g, IV Piggyback, ONCE, 1 dose, On Sharon 06/11/24 at 1230, MIX BEFORE ADMINISTERING! 1155 (New Bag - Prov ider: Ximena Moeller RN) dexamethasone sodium phosphate 20 mg in NSS 50 mL ivpb (COMPLETED) 20 mg, IV Piggyback, ONCE, On Sharon 06/11/24 at 1245, For 1 dose, PROTECT FROM LIGHT Infuse over 30 minutes! 1256 (New Bag - Prov ider: Davonte Smith RN) diphenhydrAMINE (Benadryl) inj 50 mg (COMPLETED) 50 mg, IV Push, ONCE, On Sharon 06/11/24 at 1245, For 1 dose 1239 (Given - Provid er: Davonte Smith RN) Iopamidol (Isovue 300) inj 400 mL (COMPLETED) 400 mL, Intravenous, ONCE, On Sharon 06/11/24 at 1530, For 1 dose, Intra-Op 1530 (Given - Provid er: Lorie Garcia, RT (R)) ondansetron (Zofran) inj 8 mg (COMPLETED) 8 mg, IV Push, ONCE, On Sharon 06/11/24 at 1245, For 1 dose 1239 (Given - Provid er: Davonte Smith RN) Continuous Medication Order 06/09/2024 06/10/2024 06/11/2024 NSS infusion Intravenous, at 125 mL/hr, CONTINUOUS, Starting on Sharon 06/11/24 at 1245, Until Sharon 06/11/24 at 2114 1238 (New Bag - Prov ider: Davonte Smith RN) PRN Medication Order 06/09/2024 06/10/2024 06/11/2024 buffered lidocaine 1 % inj Intradermal, ONCE PRN INTRA PROCEDURE, Starting on Sharon 06/11/24 at 1253, Until Sharon 06/11/24 at 2114, Intra-Op 1253 (Given - Provid er: Howie Gil, DO - Comment: right groin site) fentaNYL (PF) inj ONCE PRN INTRA PROCEDURE, Starting on Sharon 06/11/24 at 1240, Until Sharon 06/11/24 at 2114, Intra-Op 1240 (Given - Provid er: Davonte Smith RN)1302 (Given - Provider: Davonte Smith RN) HYDROmorphone (Dilaudid) inj ONCE PRN INTRA PROCEDURE, Starting on Sharon 06/11/24 at 1319, Until Sharon 06/11/24 at 2114, Intra-Op 1319 (Given - Provid er: Davonte Smith RN)1348 (Given - Provider: Davonte Smith RN) midazolam (Versed) 2 MG/2ML inj ONCE PRN INTRA PROCEDURE, Starting on Sharon 06/11/24 at 1252, Until Sharon 06/11/24 at 2114, Intra-Op 1252 (Given - Provid er: Davonte Smith RN) nitroglycerin (100 mcg/mL) inj ONCE PRN INTRA PROCEDURE, Starting on Sharon 06/11/24 at 1334, Until Sharon 06/11/24 at 2114, Intra-Op 1334 (Given - Provid er: Howie Gil, DO - Comment: given into IR access) documented in this encounter Advance Directives Documents on File Type Date Recorded Patient Data Modeling Architect Expl anation Advance Directives and Living Will 12/11/2022 ADVANCE DIRECTIVE / LIVING WILL LIVING WILL Power of Adhesion Tester 12/11/2022 POWER OF A TTORNEY * Full [...] Discussed due to patient's condition Care Teams Examiner Rating Clerk Relationship Specialty Start Date End Date Kristen Vences DO [address] [id number] PCP - General Family Medicine 05/19/24 documented as of this encounter
--- OUTSIDE RECORDS SUMMARY | 2024-06-12 23:58 | External Medical Summary | Summary of Care ---
Author Name Unknown Organization [facility] Address [address] [place] [address] Phone [phone] Care Team Providers Care Roentgenology Teacher Name Role Phone Kristen Vences DO Primary Care Provider [phone] Reason for Visit * Reason Comments Outpatient Testing Encounter Details Date Type Department Care Team (Late st Contact Info) Description 06/11/2024 10:00 AM EDT Laboratory Outpatient Laboratory, [place] [address] [place] [address] [place], Lab B1a [address] [place] [address] Encounter for general adult medical examination w/o abnormal findings Allergies No known active allergiesdocumented as of this encounter (statuses as of 06/11/2024) Medications Medication Sig Dispensed Refills Start Date End Date Status OneTouch Verio In Vitro Strip (Glucose Blood)Indications:T ype 2 diabetes mellitus with hemoglobin A1c goal of less than 7.0% ([facility]) Use to test blood sugars 3 times a day 300 Strip 5 09/27/2022 Suspended Additional Information BD Pen Needle Elizabeth 2nd Gen 32G X 4 MM USE DIRECTED TO ADMINISTER INSULIN AT DINNER DAILY 09/25/2022 Suspended Mirtazapine 30 MG Oral Tablet (Remeron)Indication s:Neoplastic [...] Men 50+ Oral Tablet Take by mouth. Suspe nded High Potency Iron 65 MG Oral Tablet Take by mouth. Lisa pended Zinc 50 MG Oral Capsule Take 1 Capsule by mouth in the morning. Suspended N-Acetyl Cysteine 600 MG Oral Tablet (Acetylcysteine (Nutrient)) Take by mouth. Suspended FreeStyle Wang 2 Sensor Use as directed. Every 14 days 2 Each 5 05/28/2023 Suspended Probiotic (Lactobacillus) Oral Capsule 1 Capsule. 05/17/2023 Suspended oxygen IN GAS Use 2 L/min(Oxygen) as directed at bedtime. Suspended Albumin Human 25 % Intravenous SolutionIndications :Cirrhosis of liver with ascites, unspecified hepatic cirrhosis type (HCC) 25Gm before and after paracentesis 100 mL 08/22/2023 Suspended Additional Information Metoclopramide HCl 5 [...] 90 Tablet 1 09/02/2023 Suspended Additional Information Allopurinol 100 MG Oral [...] 100 UNIT/ML Subcutaneous Solution Pen-injector once. 11/13/2023 Suspended Albumin Human 25 % Intravenous SolutionIndications [...] 60 minute each unit 50 mL 02/27/2024 Suspended Additional Information Triamcinolone Acetonide 0.1 % External Cream (Aristocort) Apply to psoriatic lesions on arms, legs, hands, feet, chest, back, abdomen twice a day as needed for 2-3 weeks 453.6 g 03/13/2024 Suspended Additional Information Albumin Human 25 % Intravenous SolutionIndications :Cirrhosis of liver (HCC) If paracentesis yields a [...] minute each unit 300 mL 100 03/17/2024 Suspended Additional Information Mag64 64 MG Oral Tablet Delayed Release Take 1 Tablet by mouth in the morning. Suspended Potassium Chloride Stephanie ER 20 MEQ Oral Tablet Extended Release 1 Tablet in the morning. 03/20/2024 Suspended Solifenacin Succinate 5 MG Oral Tablet (VESIcare) Take 1 Tablet by mouth in the morning. 30 Tablet 6 04/14/2024 Suspended Additional Information Cholestyramine 4 GM Oral Packet (Questran) Take 1 Packet by mouth in the morning and 1 Packet before bedtime. Mix with water and drink before a meal.. 60 Packet 5 04/16/2024 Suspended Additional Information Patient not taking.Reported on 06/05/2024 oxyBUTYnin Chloride 5 MG Oral Tablet (Ditropan) Take 1 tablet by mouth every 8 hours as needed for bladder spasms. 30 Tablet 05/12/2024 Suspended Additional Information Patient not taking.Reported on 06/05/2024 Spironolactone 100 MG Oral Tablet (Aldactone) Take 1 Tablet by mouth in the morning. 05/30/2024 Suspended documented as of this encounter (statuses as of 06/11/2024) Active Problems Problem Noted Date Diagnosed Date [...] as of this encounter (statuses as of 06/11/2024) Resolved Problems Problem Noted Date Diagnosed Date [...] as of this encounter (statuses as of 06/11/2024) Immunizations Name Administration Dates Next Due COVID-19 mRNA, LNP-s, No Pre serve, 2-Dose Series (Pfizer) 03/08/2021,02/15/2021 HepA Inact/HepB Recomb>=18yrs old 12/04/2019,04/2019,05/20/2019 11/19/2019 PPD 06/18/2017, 3,01/09/2012,06/2011 Pneumococcal Conjugate Vacc, 13 Valent (Prevnar) 05/01/2017 Pneumococcal Polysaccharide PPV23 (Pneumovax) 08/28/2022,10/25/2015,07/14/2012 Season Influenza, Quad, PF, Adjuvanted, 65+ Yrs, IM (FLUAD) 10/07/2020(Deferred: Patient Refused - pt says he already had his shot last [facility] at [facility] Handy Lyons and Mckinley Cobian [...] No 08/14/2023 Does the household have a re gular source of income? (Household - for ages [...] Care Team (Late st Contact Info) Description 06/11/2024 10:13 AM EDT - Present Hospital Encounter Radiology Waiting Room [facility] 1[facility] [address] [place] [address] Jacky Nevarez MD [address] [place] [address] Arrived 06/16/2024 7:00 AM EDT Laboratory [facility] [address] [place] [address] [facility] [address] [place] [address] 06/23/2024 7:00 AM EDT Laboratory [facility] [address] [place] [address] [facility] [address] [place] [address] 06/23/2024 2:00 PM EDT Office Visit Hematology/Oncology [facility] [address] [facility] [place], [place] [address] Ayaka Tatum CRNP [address] [place] [address] 06/30/2024 7:00 AM EDT Laboratory [facility] [address] [place] [address] [facility] [address] [employer] [place], [place] [address] 07/07/2024 7:00 AM EDT Laboratory [facility] [address] [place] [address] [facility] [address] [place] [address] 07/08/2024 1:00 PM EDT Office Visit Nephrology, [facility] [address] [place] [address] Franki Herbert MD [address] [facility] [place], [place] [address] 07/09/2024 9:40 AM EDT Office Visit Family Practice [facility] [address] [facility] [place] [address] Kristen Vences DO [address] [facility] [place] [address] 07/14/2024 7:00 AM EDT Laboratory [facility] [address] [place] [address] [facility] [address] [place], [place] [address] 07/21/2024 7:00 AM EDT Laboratory [facility] [address] [place], [place] [address] [facility] [address] [place], [place] [address] 07/23/2024 9:30 AM EDT Office Visit Cardiology, [facility] [address] [facility] [place] [address] Carlee Salazar CRNP 132 [facility] [place] [address] 07/28/2024 7:00 AM EDT Laboratory Lab [facility] [address] [facility] [place] [address] [facility] [address] [facility] [place] [address] 07/28/2024 2:00 PM EDT Office Visit Nephrology, [facility] [address] [facility] [place] [address] Franki Herbert MD [address] [facility] [place], [place] [address] 08/04/2024 7:00 AM EDT Laboratory [facility] [address] [facility] [place], [place] [address] [facility] [address] [facility] [place], [place] [address] 08/11/2024 7:00 AM EDT Laboratory [facility] [address] [facility] [place], [place] [address] [facility] [address] [facility] [place], [place] [address] 08/18/2024 7:00 AM EDT Laboratory [facility] [address] [facility] [place], [place] [address] [facility] [address] [facility] [place], [place] [address] 08/20/2024 10:15 AM EDT Office Visit Ophthalmology, [facility] [place] [address] Cody Gonzalez, DO [address] [facility] [place] [address] 08/25/2024 7:00 AM EDT Laboratory [facility] [address] [place] [address] [facility] [address] [facility] [place] [address] 09/01/2024 7:00 AM EDT Laboratory [facility] [address] [facility] [place] [address] [facility] [address] [place] [address] 09/08/2024 7:00 AM EDT Laboratory [facility] [address] [facility] [place] [address] [facility] [address] [place] [address] 09/15/2024 7:00 AM EDT Laboratory [facility] [address] [facility] [place] [address] [facility] [address] [place] [address] 09/22/2024 7:00 AM EDT Laboratory [facility] [address] [facility] [place] [address] [facility] [address] [place] [address] 09/29/2024 7:00 AM EDT Laboratory [facility] [address] [place] [address] [facility] [address] [place] [address] 10/06/2024 7:00 AM EST Laboratory [facility] [address] [place] [address] [facility] [address] [facility] [place] [address] 10/12/2024 10:20 AM EST Office Visit Pulmonary Medicine, [facility] [address] [place] [address] Jordan Stanley MD [address] [place] [address] [address] 10/13/2024 7:00 AM EST Laboratory [facility] [address] [place] [address] [facility] [address] [place] [address] 10/20/2024 7:00 AM EST Laboratory [facility] [address] [place], [place] [address] [facility] [address] [place] [address] 10/27/2024 7:00 AM EST Laboratory [facility] [address] [place], [place] [address] [facility] [address] [place] [address] 10/30/2024 10:00 AM EST Office Visit Urology Lynnette Fitzpatrick [address] [facility] [address] [place] [address] Frank Peraza MD [address] [place] [address] Pending Results Name Type Priority Associated Diagnoses Date /Time CBC Lab STAT Encounter for general adult medical examination w/o abnormal findings 06/11/2024 10:09 AM EDT COMPREHENSIVE METABOLIC PANEL Lab STAT Encounter for general adult medical examination w/o abnormal findings 06/11/2024 10:09 AM EDT PT INR Lab STAT Encounter for general adult medical examination w/o abnormal findings 06/11/2024 10:09 AM EDT BILIRUBIN, DIRECT Lab Routine Encounter for general adult medical examination w/o abnormal findings 06/11/2024 10:09 AM EDT Scheduled Procedures Name Priority Associated [...] 09/15/2021, Additional history exists Colonoscopy 08/09/2024 08/09/2023, 06/2022, 11/07/2022, Additional history exists Colorectal Cancer Screening 08/09/2024 HbA1c 10/08/2024 04/07/2024, 11/02, 05/28/2023, Additional history exists GFR 12/10/2024 06/09/2024, 05/02, 05/12/2024, Additional history exists Albumin/Creatinine Ratio 05/19/2025 024, 07/12/2023, 10/01/2022, Additional history exists CKD PHOS USE SMARTSET 35929 05/19/202505/02, 05/08/2024, 04/07/2024, Additional history exists Diabetic Foot Exam 05/19/2025 05/19/2024, 0 03/06/2023, 01/03/2022, Additional history exists CKD HGB USE SMARTSET 60063 06/09/202506/09, 06/09/2024, 06/03/2024, Additional history exists Sigmoidoscopy 04/12/2027 04/12/2022 Lipid [...] this encounter Medical Devices Implanted Type Area Movement Therapist Device Identifier Shelf Expiration Date Model / Serial / Lot Clareon Iol Aspheric Hydrophobic Acrylic Iol Implanted:Qty: 1 on 04/23/2023 by Cody Gonzalez DO at OR [facility] Lens Left: Eye 11/12/2025 [id number] / [id number] / Viatorr Tips Endoprosthesis 8-10 Mm X 8cm / 2cm Implanted:Qty: 1 on 10/07/2020 by Go Alvarado MD at [facility] Right: Abdomen 03/03/2023 [id number] / / [id number] Description:Viatorr TIPS End oprosthesis 8-10 mm x 8cm / 2cm, Manufactored by [employer] Syr Pf 2ml Embospheres 100-300 - [id number] Implanted:Qty: 1 on 04/18/2021 by Kevin Lim DO at OR [facility] Left: Abdomen [employer] [id number] 11/25/2023 S220GH / / [id number] Lipiodol Injection - [id number] Implanted:Qty: 1 on 03/28/2022 at [facility] [employer] 03/01/2023 [id number] / / [id number] Syr Pf 2ml [facility] 100-300 - [id number] Implanted:Qty: 1 on 03/28/2022 at [facility] [employer] [id number] 08/31/2024 S220GH / / [id number] Clareon Iol Aspheric Hydrophobic Acrylic Iol Implanted:Qty: 1 on 04/02/2023 by Cody Gonzalez DO at OR [facility] Right: Eye JAZMIN 11/12/2025 CNA0T0 / [id number] / documented as of this encounter Visit Diagnoses Diagnosis Hepatocellular carcinoma (HCC) Malignant neoplasm of liver, primary S/P TIPS (transjugular intrahepatic portosystemic shunt) Other postprocedural status Encounter for general adult medical examination w/o abnormal findings Unspecified general medical examination documented in this encounter Advance Directives Documents on File Type Date Recorded Patient Piano Accompanist Expl anation Advance Directives and Living Will 12/11/2022 ADVANCE DIRECTIVE / LIVING WILL LIVING WILL Power of Retirement Plan Specialist 12/11/2022 POWER OF A TTORNEY * [...] Discussed due to patient's condition Care Teams Roentgenology Teacher Relationship Specialty Start Date End Date Kristen Vences DO [address] [place] [address] PCP - General Family Medicine 05/19/24 documented as of this encounter
--- OUTSIDE RECORDS SUMMARY | 2024-06-12 23:59 | External Medical Summary ---
Author Name Unknown Address Unknown Organization [id number]:LABORATORY [facility] - [facility] [address] [facility] [address] Laboratory Report Ordering Provider Test Date Status KANDI RINALDI 06/09/2024 10:45:00 Final Observation Date Value Abnormality Reference (Units ) Status BUN 06/09/2024 10:45:00 26 Above high normal 6-20 (mg/dL) Final Creatinine 06/09/2024 10:45:00 1.4 Above high normal 0.6-1.2 (mg/dL) Final Glomerular filtration rate/1.73 sq M.predicted [Volume Rate/Area] in Serum, Plasma or Blood by Creatinine-based formula (CKD-EPI) 06/09/2024 10:45:00 52 Below low normal >=60 (mL/min) Final eGFR is calculated based on the CKD-EPI 2020 equation Sodium 06/09/2024 10:45:00 145 135-146 (m mol/L) Final Potassium 06/09/2024 10:45:00 4.6 3.5-5.1 (m mol/L) Final Cl 06/09/2024 10:45:00 111 Above high normal 98 -107 (mmol/L) Final CO2 06/09/2024 10:45:00 21 Below low normal 22- 32 (mmol/L) Final Anion gap 06/09/2024 10:45:00 13 7-15 (mmol /L) Final Glucose 06/09/2024 10:45:00 136 Above high normal 70 -120 (mg/dL) Final Calcium 06/09/2024 10:45:00 9.0 8.4-10.2 ( mg/dL) Final Performing Location LABORATORY [facility] - [facility] [address] [place] [address]
--- OUTSIDE RECORDS SUMMARY | 2024-06-12 23:59 | External Medical Summary ---
Author Name Unknown Address Unknown Organization [id number]:[facility] [place] [address] [place] [address] Laboratory Report Ordering Provider Test Date Status CHELSEY BISWAS 06/09/2024 10:45:00 Final Observation Date Value Abnormality Reference (Units ) Status SYNC LEUKOCYTES IN BLOOD BY AUTOMATED COUNT 06/09/2024 10:45:00 2.40 Below low normal 4.00-10.80 (K/uL) Final Segs 06/09/2024 10:45:00 58.0 40.0-75.0 (%) Final Lymphs % 06/09/2024 10:45:00 23.3 18.0-42.0 (%) Final Monos 06/09/2024 10:45:00 5.4 1.0-11.0 (%) Final Eosinophils 06/09/2024 10:45:00 12.1 Above high normal 0.0-6.0 (%) Final Basos 06/09/2024 10:45:00 0.8 0.0-2.0 (%) Final Immature Granulocyte, Percent 06/09/2024 10:45:00 0.4 0.0-2.0 (%) Final Absolute Segs 06/09/2024 10:45:00 1.39 Below low normal 1.80-7.70 (K/uL) Final Lymphs, absolute 06/09/2024 10:45:00 0.56 Below low normal 1.00-4.80 (K/ul) Final Monos, Abs 06/09/2024 10:45:00 0.13 0.00-1.10 (K/uL) Final Eos, Abs 06/09/2024 10:45:00 0.29 0.00-0.70 (K/uL) Final Basos, Abs 06/09/2024 10:45:00 0.02 0.00-0.20 (K/uL) Final Immature Granulocytes, Number 06/09/2024 10:45:00 0.01 0.00-0.20 (K/uL) Final Performing Location [facility] [place] [facility] [address] [facility] [address]
--- OUTSIDE RECORDS SUMMARY | 2024-06-12 23:59 | External Medical Summary | Summary of Care ---
Author Name Unknown Organization [facility] Address [address] [facility] [place] [address] Phone [phone] Care Team Providers Care Fleet Maintenance Manager Name Role Phone Vangie Kristenlang Rubin DO Primary Care Provider [phone] Encounter Details Date Type Department Care Team (Late st Contact Info) Description 06/05/2024 Orders Only Gastroenterology, [facility] [address] [place] [address] Lamar Tatum CRNP [address] [place] [address] Allergies No known active allergiesdocumented as of this encounter (statuses as of 06/05/2024) Medications Medication Sig Dispensed Refills Start Date [...] as of this encounter (statuses as of 06/05/2024) Active Problems Problem Noted Date Diagnosed Date [...] as of this encounter (statuses as of 06/05/2024) Resolved Problems Problem Noted Date Diagnosed Date [...] as of this encounter (statuses as of 06/05/2024) Immunizations Name Administration Dates Next Due COVID-19 mRNA, LNP-s, No Pre serve, 2-Dose Series (Pfizer) 03/08/2021,02/15/2021 HepA Inact/HepB Recomb>=18yrs old 12/04/2019,04/2019,05/20/2019 11/19/2019 PPD 06/18/2017, 3,01/09/2012,06/2011 Pneumococcal Conjugate Vacc, 13 Valent (Prevnar) 05/01/2017 Pneumococcal Polysaccharide PPV23 (Pneumovax) 08/28/2022,10/25/2015,07/14/2012 Season Influenza, Quad, PF, Adjuvanted, 65+ Yrs, IM (FLUAD) 10/07/2020(Deferred: Patient Refused - pt [facility] made aware) Seasonal Influenza [...] (15 years old or older) No 05/08/20 24 Cognitive Status Response Date of Assessm ent Because of a physical, menta l, or emotional condition, do you have serious difficulty concentrating, remembering, or making decisions? (5 years old or older) No 05/08/2024 documented as of this encounter Plan of Treatment Upcoming Encounters Date Type Department Care Team (Late st Contact Info) Description 06/05/2024 11:00 AM EDT Office Visit Family Practice [facility] 132 [facility] [place] [address] Robinson Olson CRNP 132 [place] [address] 06/09/2024 7:00 AM EDT Laboratory Lab [facility] [address] [place] [address] [facility] [address] [place] [address] 06/11/2024 11:30 AM EDT Appointment Interventional Radiology [facility] 1st Floor [address] [place] [address] 06/16/2024 7:00 AM EDT Laboratory Lab [facility] [address] [place] [address] [facility] [address] [place], [place] [address] 06/23/2024 7:00 AM EDT Laboratory [facility] [address] [place] [address] [facility] [address] [place] [address] 06/23/2024 2:00 PM EDT Office Visit Hematology/Oncology [facility] 200 [facility] [place], [place] [phone] Ayaka Tatum CRNP [address] [place] [address] 06/30/2024 7:00 AM EDT Laboratory Lab [facility] [address] [place] [address] [facility] [address] [place], [place] [address] 07/07/2024 7:00 AM EDT Laboratory Lab [facility] Phlebotomy [facility] [address] [place] [address] [facility] [address] [place] [address] 07/08/2024 1:00 PM EDT Office Visit Nephrology, [facility] [address] [place] [address] Franki Herbert MD [address] [place], [place] [address] 07/09/2024 9:40 AM EDT Office Visit Family Practice [facility] [address] [facility] [place] [address] Kristen Vences DO 132 [facility] [place] [address] 07/14/2024 7:00 AM EDT Laboratory Lab [facility] Ph[facility] [address] [place] [address] [facility] [address] [place] [address] 07/21/2024 7:00 AM EDT Laboratory Lab Mobile Phlebotomy [facility] [address] [place] [address] [facility] [address] [place] [address] 07/23/2024 9:30 AM EDT Office Visit Cardiology, [facility] 132 [facility] [place] [address] Carlee Salazar CRNP 132 [facility] [place] [address] 07/28/2024 7:00 AM EDT Laboratory Lab [facility] Phlebot[facility] [address] [place] [address] [facility] 2520 [facility] [place] [address] 07/28/2024 2:00 PM EDT Office Visit Nephrology, [facility] 200 [facility] [place], [place] [address] Franki Herbert MD 200 [facility] [place] [address] 08/04/2024 7:00 AM EDT Laboratory Lab [facility] Ph[facility] [address] [place], [place] [address] [facility] 2520 [facility] [place], [place] [address] 08/11/2024 7:00 AM EDT Laboratory Lab [facility] Phlebotomy [facility] [address] [place], [place] [address] [facility] 25[address] [facility] [place], [place] [address] 08/18/2024 7:00 AM EDT Laboratory Lab [facility] Phlebotomy [facility] [address] [place], [place] [address] [facility] 25[address] [facility] [place], [place] [address] 08/20/2024 10:15 AM EDT Office Visit Ophthalmology, [facility] [place] [address] Cody Gonzalez, DO 21 [facility] [place] [address] 08/25/2024 7:00 AM EDT Laboratory Lab [facility] [address] [facility] [place] [address] [facility] [address] [facility] [place] [address] 09/01/2024 7:00 AM EDT Laboratory Lab [facility] Phlebotomy [facility] [address] [facility] [place] [address] M[facility] 2520 [place] [address] 09/08/2024 7:00 AM EDT Laboratory Lab [facility] Phlebotomy [facility] [address] [facility] [place] [address] M[facility] [address] [facility] [place] [address] 09/15/2024 7:00 AM EDT Laboratory Lab [facility] Ph[facility]bot[facility] [address] [place] [address] M[facility], [facility] [address] [place] [address] 09/22/2024 7:00 AM EDT Laboratory Lab [facility] Ph[facility] [address] [place] [address] [facility] [address] [place] [address] 09/29/2024 7:00 AM EDT Laboratory Lab [facility] Phlebotomy [facility] [address] [facility] [place] [address] Mvmg, [facility] [address] [place] [address] 10/06/2024 7:00 AM EST Laboratory Lab [facility] Phlebotomy [facility] [address] [facility] [place] [address] M[facility], [facility] [address] [facility] [place] [address] 10/12/2024 10:20 AM EST Office Visit Pulmonary Medicine, [facility] [address] [place] [address] Jordan Stanley MD [address] [place] [address] 10/13/2024 7:00 AM EST Laboratory Lab [facility] [address] [place] [address] [facility] [address] [place] [address] 10/20/2024 7:00 AM EST Laboratory [facility] [address] [place] [address] [facility] [address] [place] [address] 10/27/2024 7:00 AM EST Laboratory Lab [facility] Phle[facility] [address] [place] [address] [facility] [address] [place] [address] 10/30/2024 10:00 AM EST Office Visit Urology [place] [address] [place] [address] Frank Peraza MD 27 [place] [address] Scheduled Procedures Name Priority Associated Diagnoses Date/Ti [...] 04/07/2024, 11/02, 05/28/2023, Additional history exists GFR 11/18/2024 05/19/2024, 05/02, 05/11/2024, Additional history exists Albumin/Creatinine Ratio 05/19/2025 024, 07/12/2023, 10/01/2022, Additional history exists CKD HGB USE SMARTSET 35481 05/19/202506/03, 05/19/2024, 05/19/2024, Additional history exists CKD PHOS USE SMARTSET 41016 05/19/202505/02, 05/08/2024, 04/07/2024, Additional history exists Diabetic [...] encounter Medical Devices Implanted Type Area Retail Loan Officer Device Identifier Shelf Expiration Date Model / Serial / Lot Clareon Iol Aspheric Hydrophobic Acrylic Iol Implanted:Qty: 1 on 04/23/2023 by Cody Gonzalez DO at OR [facility] Lens Left: Eye 11/12/2025 CNA0T0 / [id number] / Viatorr Tips Endoprosthesis 8-10 Mm X 8cm / 2cm Implanted:Qty: 1 on 10/07/2020 by Go Alvarado MD at [facility] Right: Abdomen 03/03/2023 [id number] / / [id number] Description:Viatorr TIPS End oprosthesis 8-10 mm x 8cm / 2cm, Manufactored by [employer] Syr Pf 2ml Embospheres 100-300 - [id number] Implanted:Qty: 1 on 04/18/2021 by Kevin Lim DO at OR [facility] Left: Abdomen NCR [employer] [id number] 11/25/2023 S220GH / / [id number] Lipiodol Injection - [id number] Implanted:Qty: 1 on 03/28/2022 at [facility] [employer] 03/01/2023 [id number] 01-2 / / [id number] Syr Pf 2ml Embospheres 100-300 - [id number] Implanted:Qty: 1 on 03/28/2022 at [facility] [employer] [id number] 08/31/2024 S220GH / / [id number] Clareon Iol Aspheric Hydrophobic Acrylic Iol Implanted:Qty: 1 on 04/02/2023 by Cody Gonzalez DO at OR [facility] Right: Eye JAZMIN 11/12/2025 CNA0T0 / [id number] / documented as of this encounter Procedures Procedure Name Priority Date/Time Associated Diagnosis Comments CHEMISTRY-OUTSIDE Routine 06/03/2024 documented in this encounter Results * (ABNORMAL) CHEMISTRY-OUTSIDE (06/03/2024) Not all results display below - see scan for full detail OUTSIDE LAB (SEE SCANNED REPORT) Comment:SCAN INCLUDES: PT IN R, CBCD CREATININE-OUTSID E LAB OUTSIDE LAB (SEE [...] LAB OUTSIDE LAB (SEE SCANNED REPORT) HEMOGLOBIN, [id number] LAB OUTSIDE LAB (SEE SCANNED REPORT) PHOSPHORUS-OUTSID E LAB OUTSIDE LAB (SEE SCANNED REPORT) PTH-OUTSIDE LAB OUTS CONNOR LAB (SEE SCANNED REPORT) MICROALBUMIN RATIO-OUTSIDE LAB OUTSIDE LA B (SEE SCANNED REPORT) PROTEIN, UA-OUTSIDE LAB OUTSIDE LAB (SEE SCANNED REPORT) HGB 7.8(A) 14 - 18 G/DL OUTSIDE LAB (SEE SCANNED REPORT) 06/03/2024 Lamar AGUILAR LABORATORY OUTSIDE LAB (SEE SCANNED REPORT) documented in this encounter Advance Directives Documents on File Type Date Recorded Patient 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
--- OUTSIDE RECORDS SUMMARY | 2024-06-12 23:59 | External Medical Summary | Summary of Care ---
Author Name Unknown Organization [facility] Address [address] [facility] [place] [address] Phone [phone] Care Team Providers Care Inner Tube Inserter Name Role Phone Kristen Vences DO Primary Care Provider [phone] Encounter Details Date Type Department Care Team (Late st Contact Info) Description 06/05/2024 Orders Only Gastroenterology, [facility] [address] [place] [address] Lamar Tatum CRNP [address] [place] [address] Cirrhosis of liver with ascites, unspecified hepatic cirrhosis type (HCC); FOFANA (nonalcoholic steatohepatitis) Allergies No known active allergiesdocumented as of this encounter (statuses as of 06/05/2024) Medications Medication Sig Dispensed Refills Start Date End Date Status OneTouch Verjeffrey In Vitro Strip (Glucose Blood)Indications:Ty pe 2 [...] (Acetylcysteine (Nutrient)) Take by mouth. Active FreeStyle Wnag 2 Sensor Use as directed. Every 14 [...] mRNA, LNP-s, No Pre serve, 2-Dose Series (dotCloud) 03/08/2021,02/15/2021 HepA Inact/HepB Recomb>=18yrs old 12/04/2019,04/2019,05/20/2019 11/19/2019 PPD 06/18/2017, 3,01/09/2012,06/2011 Pneumococcal Conjugate Vacc, 13 Valent (Prevnar) 05/01/2017 Pneumococcal Polysaccharide PPV23 (Pneumovax) 08/28/2022,10/25/2015,07/14/2012 Season Influenza, Quad, PF, Adjuvanted, 65+ Yrs, IM (FLUAD) 10/07/2020(Deferred: Patient Refused - pt says he already had his shot last month at [facility] and [facility] [...] 06/05/2024 11:00 AM EDT Office Visit Family [facility] 132 [facility] [place] [address] Robinson Olson CRNP [address] [place] [address] 06/09/2024 7:00 AM EDT Laboratory Lab Mobile Phlebotomy [facility] [address] [place] [address] [facility], G[facility] Mobile Home Draw [facility] [place] [address] 06/11/2024 11:30 AM EDT Appointment Interventional Radiology [place], Beth [facility] 1st Floor [address] [place] [address] 06/16/2024 7:00 AM EDT Laboratory Lab [facility] Ph[facility] [address] [place] [address] [facility] [address] [place] [address] 06/23/2024 7:00 AM EDT Laboratory Lab [facility]bot[facility] [address] [place] [address] [facility], [facility] [address] [place] [address] 06/23/2024 2:00 PM EDT Office Visit Hematology/Oncology [facility] [address] [place] [phone] Ayaka Tatum CRNP [address] [place] [address] 06/30/2024 7:00 AM EDT Laboratory Lab Mobile Phlebotomy [facility] [address] [place] [address] [place] [address] [facility], [facility] Draw [address] [place] [address] 07/07/2024 7:00 AM EDT Laboratory Lab Mobile Phlebotomy [facility] [address] [address] [facility], [facility] Draw [address] [place] [address] 07/08/2024 1:00 PM EDT Office Visit Nephrology, [facility] [address] [place], [place] [address] Franki Herbert MD [address] [place] [address] 07/09/2024 9:40 AM EDT Office Visit Family Practice [facility] 132 [facility] [place] [address] Kristen Vences DO [address] [place] [address] 07/14/2024 7:00 AM EDT Laboratory Lab Mobile Phlebotomy [facility] [address] [place] [address] M[facility], [facility] Draw [address] [place] [address] 07/21/2024 7:00 AM EDT Laboratory Lab Mobile Phlebotomy [facility] [address] [place] [address] [facility], [facility] Draw [address] [place], [place] [address] 07/23/2024 9:30 AM EDT Office Visit Cardiology, [facility] 132 [facility] [place] [address] Carlee Salazar CRNP 132 [facility] [place] [address] 07/28/2024 7:00 AM EDT Laboratory Lab Mobile Phlebotomy [facility] [address] [place], [place] [address] M[facility], [facility] Draw [address] [place], [place] [address] 07/28/2024 2:00 PM EDT Office Visit Nephrology, [facility] [address] [place], [place] [address] Franki Herbert MD 200 [facility] [place], [place] [address] 08/04/2024 7:00 AM EDT Laboratory Lab Mobile Phlebotomy [facility] [address] [place], [place] [address] Mv[facility], [facility] Draw [address] [place], [place] [address] 08/11/2024 7:00 AM EDT Laboratory Lab Mobile Phlebotomy [facility] [address] [place], [place] [address] Mv[facility], Gml [facility] Draw [address] [place], [place] [address] 08/18/2024 7:00 AM EDT Laboratory Lab Mobile Phlebotomy [facility] [address] [place], [place] [address] M[facility], [facility] Draw [address] [place], [place] [address] 08/20/2024 10:15 AM EDT Office Visit Ophthalmology, [facility] [place] [address] Cody Gonzalez, DO [address] [place] [address] 08/25/2024 7:00 AM EDT Laboratory Lab Mobile Phlebotomy [facility] [address] [place], [place] [address] M[facility], Gml Mobile Home Draw 2520 [facility] [place], [place] [address] 09/01/2024 7:00 AM EDT Laboratory Lab Mobile Phlebotomy [facility] 2520 [facility] [place] [address] Mvmg, Gml Mobile Home Draw [address] [place] [address] 09/08/2024 7:00 AM EDT Laboratory Lab Mobile Phlebotomy [facility] [address] [place], [place] [address] Mvmg, Gml Mobile Home Draw [address] [place] [employer] [place], [place] [address] 09/15/2024 7:00 AM EDT Laboratory Lab Mobile Phlebotomy [facility] [address] [facility] [address] Mvmg, Gml Mobile Home Draw 2520 [facility] [place], [place] [address] 09/22/2024 7:00 AM EDT Laboratory Lab Mobile Phlebotomy [facility] 25[address] [facility] [place], [place] [address] Mvmg, Gml Mobile Home Draw [address] [place] [employer] [place], [place] [address] 09/29/2024 7:00 AM EDT Laboratory Lab Mobile Phlebotomy [facility] 25[address] [facility] [place], [place] [address] Mvmg, Gml Mobile Home Draw [address] [place] [employer] [place], [place] [address] 10/06/2024 7:00 AM EST Laboratory Lab Mobile Phlebotomy [facility] [address] [facility] [place], [place] [address] Mvmg, Gml Mobile Home Draw [address] [place] [address] 10/12/2024 10:20 AM EST Office Visit Pulmonary Medicine, [facility] [address] [place] [address] Jordan Stanley MD [address] [place] [address] [address] 10/13/2024 7:00 AM EST Laboratory Lab Mobile Phlebotomy [facility] [address] [place] [address] Mvmg, Gml Mobile Home Draw [address] [place], [place] [address] 10/20/2024 7:00 AM EST Laboratory Lab Mobile Phlebotomy [facility] [address] [place], [place] [address] Mvmg, Gml Mobile Home Draw [address] [place], [place] [address] 10/27/2024 7:00 AM EST Laboratory Lab Mobile Phlebotomy [facility] [address] [place] [address] Mvmg, Gml [facility] Home Draw [address] [place], [place] [address] 10/30/2024 10:00 AM EST Office Visit Urology [place] Fitz[place] [address] [place] [address] Frank Peraza MD 27 [place] [address] Scheduled Procedures Name Priority Associated Diagnoses Date/Ti [...] Additional history exists CKD PHOS USE SMARTSET 02335 05/19/202505/02, 05/08/2024, 04/07/2024, Additional history exists Diabetic Foot Exam 05/19/2025 05/19/2024, 0 03/06/2023, 01/03/2022, Additional history exists CKD HGB USE SMARTSET 95477 06/03/202506/03, 05/19/2024, 05/19/2024, Additional history exists Sigmoidoscopy 04/12/2027 04/12/2022 Lipid [...] this encounter Medical Devices Implanted Type Area Library Assistant Device Identifier Shelf Expiration Date Model / Serial / Lot Clareon Iol Aspheric Hydrophobic Acrylic Iol Implanted:Qty: 1 on 04/23/2023 by Cody Gonzalez DO at OR [facility] Lens Left: Eye 11/12/2025 CNA0T0 / [id number] / Viatorr Tips Endoprosthesis 8-10 Mm X 8cm / 2cm Implanted:Qty: 1 on 10/07/2020 by Go Alvarado MD at [facility] Right: Abdomen 03/03/2023 [id number] / / [id number] Description:Viatorr TIPS End oprosthesis 8-10 mm x 8cm / 2cm, Manufactored by [employer] Syr Pf 2ml Embospheres 100-300 - [id number] Implanted:Qty: 1 on 04/18/2021 by Kevin Lim DO at OR [facility] Left: Abdomen [employer] [id number] 11/25/2023 S220GH / / [id number] Lipiodol Injection - [id number] Implanted:Qty: 1 on 03/28/2022 at [facility] [employer] 03/01/2023 [id number] 01-2 / / [id number] Syr Pf 2ml Embospheres 100-300 - [id number] Implanted:Qty: 1 on 03/28/2022 at [facility] [employer] [id number] 08/31/2024 S220GH / / [id number] -[id number] Clareon Iol Aspheric Hydrophobic Acrylic Iol Implanted:Qty: 1 on 04/02/2023 by Cody Gonzalez DO at OR [facility] Right: Eye JAZMIN 11/12/2025 CNA0T0 / [id number] / documented as of this encounter Procedures Procedure Name Priority Date/Time Associated Diagnosis Comments US ABDOMINAL PARACENTESIS Routine 06/03/2024 Cirrhosis of liver with ascites, unspecified hepatic cirrhosis type (HCC) FOFANA (nonalcoholic steatohepatitis) documented in this encounter Results * US ABDOMINAL PARACENTESIS (06/03/2024) Anatomical Region Laterality Modality Abdomen, Body Other 06/03/2024 Lamar AGUILAR RAD ULTRASOUND documented in this encounter Visit Diagnoses Diagnosis Cirrhosis of liver with ascites, unspecified hepatic cirrhosis type (HCC) FOFANA (nonalcoholic steatohepatitis) Other chronic nonalcoholic liver disease documented in this encounter Advance Directives Documents on File Type Date Recorded 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
--- OUTSIDE RECORDS SUMMARY | 2024-06-12 23:59 | External Medical Summary | Summary of Care ---
Author Name Unknown Organization [facility] [address] [facility] [address] Phone [phone] Care Team Providers Care News Gathering Technician Name Role Phone VangieKristen shahid Caryn SANDOVAL Primary Care Provider [phone] Reason for Referral * Precert (Within 10 days (routine)) - Authorized Specialty Diagnoses / Procedures Referred By Contac t Referred To Contact Radiology Diagnoses Cirrhosis of liver with ascites, unspecified hepatic cirrhosis type (HCC) Procedures IR PARACENTESIS Angie Barbosa CRNP [address] [place] [address] Referral ID Status Reason Start Date Expiration Date V isits Requested Visits Authorized [id number] Authorized 06/03/2024 52 52 Reason for Visit * Reason Onset Date Comments Advice 06/02/2024 Order Request 06/02/2024 Encounter Details Date Type Department Care Team (Late st Contact Info) Description 06/02/2024 Telephone Gastroenterology, [facility] [address] [place] [address] Angie Barbosa CRNP [address] [place] [address] Advice; Order Request Allergies No known active allergiesdocumented as of this encounter (statuses as of 06/03/2024) Medications Medication Sig Dispensed Refills Start Date End Date Status Amanda Eubanks In Vitro Strip (Glucose Blood)Indications:Ty pe 2 [...] as of this encounter (statuses as of 06/03/2024) Active Problems Problem Noted Date Diagnosed Date [...] as of this encounter (statuses as of 06/03/2024) Resolved Problems Problem Noted Date Diagnosed Date [...] as of this encounter (statuses as of 06/03/2024) Immunizations Name Administration Dates Next Due COVID-19 mRNA, LNP-s, No Pre serve, 2-Dose Series (Favor) 03/08/2021,02/15/2021 HepA Inact/HepB Recomb>=18yrs old 12/04/2019,04/2019,05/20/2019 11/19/2019 PPD 06/18/2017, 3,01/09/2012,06/2011 Pneumococcal Conjugate Vacc, 13 Valent (Prevnar) 05/01/2017 Pneumococcal Polysaccharide PPV23 (Pneumovax) 08/28/2022,10/25/2015,07/14/2012 Season Influenza, Quad, PF, Adjuvanted, 65+ Yrs, IM (FLUAD) 10/07/2020(Deferred: Patient Refused - pt says he already had his shot last month at [facility] Handy Lyons and Mckinley Cobian made [...] encounter Miscellaneous Notes * Telephone Encounter - Odalys Deal LPN - 06/03/2024 3:21 PM EDT US Guided Paracentesis Order yes Diagnostic ONLY? Cirrhosis of the Liver with Ascites, K74.60, K18.8 Fluid removal amount addressed? yes Albumin orders printed/rate addressed?yes Coags ordered?no (Please check that they were not drawn at DOS) Is patient on blood thinners?no If yes- nursing please address prior to forwarding to scheduling Is patient Diabetic?yes If yes, please remind patient they will be NPO 4 hours prior to paracentesis and may need to consult with who manages their diabetic medications * Addendum Note - Angie Barbosa CRNP - 06/03/2024 12:46 PM EDTAddended by: ANGIE BARBOSA on: 06/03/2024 12:46 PM Modules accepted: Orders * Telephone Encounter - Angie Barbosa CRNP - 06/03/2024 12:45 PM EDT Orders placed. * Telephone Encounter - Odalys Deal LPN - 06/02/2024 2:[address] order for weekly paracentesis? * Telephone Encounter - Kailyn Cuba OSA - 06/02/2024 2:18 PM EDT [facility]. [facility] yesterday and the request that was sent was for a parison piece every 2 weeks patient would like another order sent over so he can have them done weekly. Please put on record patient is required albumin after every procedure. documented in this encounter Plan of Treatment Upcoming Encounters Date Type Department Care Team (Late st Contact Info) Description 06/05/2024 11:00 AM EDT Office Visit Family [facility] [address] [place] [address] Robinson Olson CRNP [address] [place] [address] 06/09/2024 7:00 AM EDT Laboratory Lab Mobile Phlebotomy [facility] [address] [place] [address] M[facility], [facility] [address] [place], [place] [address] 06/11/2024 11:30 AM EDT Appointment Interventional [place]iology [facility] [address]st [address] [place] [address] 06/16/2024 7:00 AM EDT Laboratory Lab Mobile Phlebotomy [facility] [address] [place] [address] Mvmg, [facility] [address] [place] [employer] [address] 06/23/2024 7:00 AM EDT Laboratory Lab Mobile Phlebotomy [facility] [address] [place] [address] Mvmg, Gml [facility] Draw [address] [place] [address] 06/23/2024 2:00 PM EDT Office Visit Hematology/Oncology George Blankenship [place] 200 [facility] [place] [address] Ayaka Barbosa CRNP [address] [place] [address] 06/30/2024 7:00 AM EDT Laboratory Lab Mobile Phlebotomy [facility] [address] [place] [address] Mvmg, G[facility] Draw [address] [place] [employer] [address] 07/07/2024 7:00 AM EDT Laboratory Lab Mobile Phlebotomy [facility] [address] [employer], [place] [address] Mvmg, Gml [facility] Draw [address] [place], [place] [address] 07/08/2024 1:00 PM EDT Office Visit Nephrology, [facility] [address] [employer], [place] [address] Franki Herbert MD 200 [facility] [place] [address] 07/09/2024 9:40 AM EDT Office Visit Family Practice [facility] [address] [place] [address] Kristen Vences DO [address] [place] [address] 07/14/2024 7:00 AM EDT Laboratory Lab Mobile Phlebotomy [facility] [address] [place] [address] Mvmg, Gml Mobile Home Draw [address] [facility] [place] [address] 07/21/2024 7:00 AM EDT Laboratory Lab Mobile Phlebotomy [facility] [address] [place] [address] Mvmg, Gml Mobile Home Draw 2520 [facility] [place], [place] [address] 07/23/2024 9:30 AM EDT Office Visit Cardiology, [facility] [address] [place] [address] Carlee Salazar CRNP [address] [facility] [place] [address] 07/28/2024 7:00 AM EDT Laboratory Lab Mobile Phlebotomy [facility] [address] [place], [place] [address] Mvmg, Gml [facility] Draw [address] [place], [place] [address] 07/28/2024 2:00 PM EDT Office Visit Nephrology, George Blankenship [address] [place], [place] [address] Franki Herbert MD [address] [place] [address] 08/04/2024 7:00 AM EDT Laboratory Lab Mobile Phlebotomy [facility] [address] [place], [place] [address] Mvmg, Gml Mobile Home Draw [address] [place], [place] [address] 08/11/2024 7:00 AM EDT Laboratory Lab Mobile Phlebotomy [facility] [address] [facility] [place], [place] [address] Mvmg, Gml Mobile Home Draw [address] [facility] [place], [place] [address] 08/18/2024 7:00 AM EDT Laboratory Lab Mobile Phlebotomy [facility] [address] [place], [place] [address] Mvmg, Gml Mobile Home Draw [address] [facility] [place], [place] [address] 08/20/2024 10:15 AM EDT Office Visit Ophthalmology, [facility] 132 [facility] [place] [address] Cody Gonzalez, DO [facility] [place] [address] 08/25/2024 7:00 AM EDT Laboratory Lab Mobile Phlebotomy [facility] [address] [facility] [place], [place] [address] Mvmg, Gml Mobile Home Draw [address] [facility] [place], [place] [address] 09/01/2024 7:00 AM EDT Laboratory Lab Mobile Phlebotomy [facility] [address] [place], [place] [address] Mvmg, Gml Mobile Home Draw 25[address] [facility] [place], [place] [address] 09/08/2024 7:00 AM EDT Laboratory Lab Mobile Phlebotomy [facility] [address] [facility] [place] [address] Mvmg, Gml Mobile [facility] Draw [address] [facility] [place] [address] 09/15/2024 7:00 AM EDT Laboratory Lab Mobile Phlebotomy [facility] [address] [place], [place] [address] Mvmg, Gml Mobile Home Draw [address] [facility] [place], [place] [address] 09/22/2024 7:00 AM EDT Laboratory Lab Mobile Phlebotomy [facility] [address] [place] [address] Mvmg, Gml Mobile Home Draw 25[address] [facility] [place] [address] 09/29/2024 7:00 AM EDT Laboratory Lab Mobile Phlebotomy [facility] [address] [facility] [place] [address] Mvmg, Gml Mobile Home Draw [address] [facility] [place] [address] 10/06/2024 7:00 AM EST Laboratory Lab Mobile Phlebotomy [facility] [address] [place] [address] Mvmg, Gml Mobile Home Draw [address] [facility] [place] [address] 10/12/2024 10:20 AM EST Office Visit Pulmonary Medicine, [address] [place] [address] Jordan Stanley MD [address] [place] [address] 10/13/2024 7:00 AM EST Laboratory Lab Mobile Phlebotomy [facility] [address] [facility] [place] [address] Mvmg, Gml Mobile Home Draw [address] [facility] [place] [address] 10/20/2024 7:00 AM EST Laboratory Lab Mobile Phlebotomy [facility] [address] [facility] [place] [address] Mvmg, Gml Mobile Home Draw [address] [facility] [place] [address] 10/27/2024 7:00 AM EST Laboratory Lab Mobile Phlebotomy [facility] [address] [facility] [place] [address] Mvmg, Gml Mobile Home Draw [address] [facility] [place] [address] 10/30/2024 10:00 AM EST Office Visit Urology Lynnette Fitzpatrick [address] [place] [address] Frank Peraza MD [address] [place] [address] Scheduled Orders Name Type Priority Associated Diagnoses Orde r Schedule IR PARACENTESIS Medical Imaging Routine Cirrhosis of liver with ascites, unspecified hepatic cirrhosis type (HCC) Every Week for 52 Occurrences starting 06/03/2024 until 07/04/2025 CELL COUNT WITH DIFFERENTIAL, BODY FLUID Lab Routine Cirrhosis of liver with ascites, unspecified hepatic cirrhosis type (HCC) Every Week for 52 Occurrences starting 06/03/2024 until 06/03/2025 Scheduled Procedures Name Priority Associated Diagnoses Date/Ti [...] Additional history exists CKD HGB USE SMARTSET 54555 05/19/202505/19, 05/19/2024, 05/18/2024, Additional history exists CKD PHOS USE SMARTSET 90693 05/19/202505/02, 05/08/2024, 04/07/2024, Additional history exists Diabetic [...] this encounter Medical Devices Implanted Type Area Pet Care Worker Device Identifier Shelf Expiration Date Model / Serial / Lot Clareon Iol Aspheric Hydrophobic Acrylic Iol Implanted:Qty: 1 on 04/23/2023 by Cody Gonzalez DO at OR [facility] Lens Left: Eye 11/12/2025 CNA0T0 / [id number] / Viatorr Tips Endoprosthesis 8-10 Mm X 8cm / 2cm Implanted:Qty: 1 on 10/07/2020 by Go Alvarado MD at [facility] Right: Abdomen 03/03/2023 [id number] / / [id number] Description:Viatorr TIPS End oprosthesis 8-10 mm x 8cm / 2cm, Manufactored by [employer] Syr Pf 2ml Embospheres 100-300 - [id number] Implanted:Qty: 1 on 04/18/2021 by Kevin Lim DO at OR [facility] Left: Abdomen [employer] [id number] 11/25/2023 S220GH / / [id number] Lipiodol Injection - [id number] Implanted:Qty: 1 on 03/28/2022 at [facility] [employer] 03/01/2023 05806-06 01-2 / / [id number] Syr Pf 2ml Embospheres 100-300 - [id number] Implanted:Qty: 1 on 03/28/2022 at [facility] [employer] [id number] 08/31/2024 S220GH / / [id number] -5 Clareon Iol Aspheric Hydrophobic Acrylic Iol Implanted:Qty: 1 on 04/02/2023 by Cody Gonzalez DO at OR [facility] Right: Eye JAZMIN 11/12/2025 CNA0T0 / [id number] / documented as of this encounter Visit Diagnoses Diagnosis Cirrhosis of liver with ascites, unspecified hepatic cirrhosis type (HCC)- Primary documented in this encounter Advance Directives Documents on File Type Date Recorded Patient Records Management Specialist Expl anation Advance Directives and Living Will 12/11/2022 ADVANCE DIRECTIVE / LIVING WILL LIVING WILL Power of Mental Health Case Manager 12/11/2022 POWER OF A TTORNEY * [...] Discussed due to patient's condition Care Teams News Gathering Technician Relationship Specialty Start Date End Date Kristen Vences DO [address] [place] [address] PCP - General Family Medicine 05/19/24 documented as of this encounter
--- OUTSIDE RECORDS SUMMARY | 2024-06-12 23:59 | External Medical Summary | Summary of Care ---
Author Name Unknown Organization [facility] Address [address] [place] [address] Phone [phone] Care Team Providers Care Supply Chain Design Manager Name Role Phone VangieKristen shahid Caryn SANDOVAL Primary Care Provider [phone] Encounter Details Date Type Department Care Team (Late st Contact Info) Description 06/08/2024 11:00 AM EDT Scheduled Telephone Care Coordination and Integration [address] [place], [place] [phone] Kriss Mays, Community Health Vice President Of Communications [address] [place], [place] [phone] Allergies No known active allergiesdocumented as of this encounter (statuses as of 06/08/2024) Medications Medication Sig Dispensed Refills Start Date [...] as of this encounter (statuses as of 06/08/2024) Active Problems Problem Noted Date Diagnosed Date [...] as of this encounter (statuses as of 06/08/2024) Resolved Problems Problem Noted Date Diagnosed Date [...] as of this encounter (statuses as of 06/08/2024) Immunizations Name Administration Dates Next Due COVID-19 [...] Progress Notes * Kriss Mays, Community Health Vice President Of Communications - 06/08/2024 11:27 AM EDT Telemedicine visit: No Community Health Vice President Of Communications (CANDY) documentation: CHW placed PC to patient per CM's request Patient is not feeling the best today mentally. He is very scared about his procedure at [place] on . 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 He has had this done before so he should not bescared but for some reason he is scared. Feeling down. Patient has not been eating or drinking much. He does not feel like eating. CHW encouraged patient to try and eat and drink what he can. CHW encouraged patient to reach out to CM with any concerns or questions. Kriss Mays- Community Health Worker 1 Support Services/[facility] [employer] Electronically signed by Kriss Mays, Community Health Vice President Of Communications at 06/08/2024 11:31 AM EDT documented in this encounter Plan of Treatment Upcoming Encounters Date Type Department Care Team (Late st Contact Info) Description 06/09/2024 7:00 AM EDT Laboratory Lab Mobile Phlebotomy [facility] [address] [place] [address] Mvmg, Gml Mobile Home Draw [address] [place] [address] 06/11/2024 11:30 AM EDT Appointment Interventional Radiology [facility], [address] 1st Floor [address] [place] [address] 06/16/2024 7:00 AM EDT Laboratory Lab Mobile Phlebotomy [facility] [address] [place] [place] [address] Mvmg, Gml Mobile Home Draw [address] [employer], [place] [address] 06/23/2024 7:00 AM EDT Laboratory Lab Mobile Phlebotomy [facility] [address] [place] [address] Mvmg, Gml Mobile Home Draw [address] [place], [place] [address] 06/23/2024 2:00 PM EDT Office Visit Hematology/Oncology George Blankenship [place] 200 [facility] [address] [place], [place] [address] Ayaka Tatum [facility] 400 [facility] [address] 06/30/2024 7:00 AM EDT Laboratory Lab Mobile Phlebotomy [facility] [address] [place] [address] Mvmg, Gml Mobile Home Draw [address] [place], [place] [address] 07/07/2024 7:00 AM EDT Laboratory Lab Mobile Phlebotomy [facility] [address] [place], [place] [address] Mvmg, Gml Mobile Home Draw [address] [place], [place] [address] 07/08/2024 1:00 PM EDT Office Visit Nephrology, [facility] [place] [address] [place], [place] [address] Franki Herbert MD 200 [facility] [place], [place] [address] 07/09/2024 9:40 AM EDT Office Visit Family Practice [facility] [address] [facility] [place] [address] Kristen Vences DO [address] [place] [address] 07/14/2024 7:00 AM EDT Laboratory Lab Mobile Phlebotomy [facility] [address] [place] [address] Mvmg, Gml Mobile Home Draw [address] [place], [place] [address] 07/21/2024 7:00 AM EDT Laboratory Lab Mobile Phlebotomy [facility] [address] [place] [address] Mvmg, Gml Mobile Home Draw 2520 [facility] [place], [place] [address] 07/23/2024 9:30 AM EDT Office Visit Cardiology, [facility] [address] [facility] [place] [address] Carlee Salazar CRNP [address] [facility] [place] [address] 07/28/2024 7:00 AM EDT Laboratory Lab Mobile Phlebotomy [facility] [address] [place], [place] [address] Mvmg, Gml Mobile Home Draw [address] [facility] [place], [place] [address] 07/28/2024 2:00 PM EDT Office Visit Nephrology, George Blankenship [address] [place], [place] [address] Franki Herbert MD [address] [place], [place] [address] 08/04/2024 7:00 AM EDT Laboratory Lab Mobile Phlebotomy [facility] [address] [place] [address] Mvmg, Gml Mobile Home Draw [address] [place], [place] [address] 08/11/2024 7:00 AM EDT Laboratory Lab Mobile Phlebotomy [facility] [address] [place], [place] [address] Mvmg, Gml Mobile Home Draw [address] [place], [place] [address] 08/18/2024 7:00 AM EDT Laboratory Lab Mobile Phlebotomy [facility] [address] [place], [place] [address] Mvmg, Gml Mobile Home Draw 2520 [facility] [place], [place] [address] 08/20/2024 10:15 AM EDT Office Visit Ophthalmology, [facility] 132 [facility] [place] [address] Cody Gonzalez, DO 21 [facility] [place] [address] 08/25/2024 7:00 AM EDT Laboratory Lab Mobile Phlebotomy [facility] [address] [place], [place] [address] Mvmg, Gml Mobile Home Draw 2520 [facility] [place], [place] [address] 09/01/2024 7:00 AM EDT Laboratory Lab Mobile Phlebotomy [facility] [address] [place], [place] [address] Mvmg, Gml Mobile Home Draw [address] [place], [place] [address] 09/08/2024 7:00 AM EDT Laboratory Lab Mobile Phlebotomy [facility] [address] [place], [place] [address] Mvmg, Gml Mobile Home Draw [address] [place] [address] 09/15/2024 7:00 AM EDT Laboratory Lab Mobile Phlebotomy [facility] [address] [place], [place] [address] Mvmg, Gml Mobile Home Draw [address] [place], [place] [address] 09/22/2024 7:00 AM EDT Laboratory Lab Mobile Phlebotomy [facility] 2520 [facility] [place] [address] Mvmg, Gml Mobile Home Draw 2520 [facility] [place] [address] 09/29/2024 7:00 AM EDT Laboratory Lab Mobile Phlebotomy [facility] [address] [place] [address] Mvmg, Gml Mobile Home Draw 2520 [facility] [place] [address] 10/06/2024 7:00 AM EST Laboratory Lab Mobile Phlebotomy [facility] 25[address] [facility] [place] [address] Mvmg, Gml Mobile Home Draw 25[address] [facility] [place] [address] 10/12/2024 10:20 AM EST Office Visit Pulmonary Medicine, [facility] 132 [facility] [place] [address] Jordan Stanley MD [address] [place] [address] 10/13/2024 7:00 AM EST Laboratory Lab Mobile Phlebotomy [facility] [address] [place] [address] Mvmg, Gml Mobile Home Draw 2520 [facility] [place] [address] 10/20/2024 7:00 AM EST Laboratory Lab Mobile Phlebotomy [facility] 25[address] [facility] [place] [address] Mvmg, Gml Mobile Home Draw 25[address] [facility] [place] [address] 10/27/2024 7:00 AM EST Laboratory Lab Mobile Phlebotomy [facility] [address] [facility] [place] [address] Mvmg, Gml Mobile Home Draw 25[address] [facility] [place] [address] 10/30/2024 10:00 AM EST Office Visit Urology Lynnette Fitzpatrick [address] [place] [address] Frank Peraza MD [address] [place] [address] Scheduled Procedures Name Priority Associated Diagnoses Date/Ti [...] Additional history exists CKD PHOS USE SMARTSET 86525 05/19/202505/02, 05/08/2024, 04/07/2024, Additional history exists Diabetic Foot Exam 05/19/2025 05/19/2024, 0 03/06/2023, 01/03/2022, Additional history exists CKD HGB USE SMARTSET 67130 06/03/202506/03, 05/19/2024, 05/19/2024, Additional history exists Sigmoidoscopy [...] this encounter Medical Devices Implanted Type Area Marble Helper Device Identifier Shelf Expiration Date Model / Serial / Lot Clareon Iol Aspheric Hydrophobic Acrylic Iol Implanted:Qty: 1 on 04/23/2023 by Cody Gonzalez DO at [facility] Lens Left: Eye 11/12/2025 CNA0T0 / [id number] / Viatorr Tips Endoprosthesis 8-10 Mm X 8cm / 2cm Implanted:Qty: 1 on 10/07/2020 by Go Alvarado MD at [facility] Right: Abdomen 03/03/2023 [id number] / / [id number] Description:Viatorr TIPS End oprosthesis 8-10 mm x 8cm / 2cm, Manufactored by [employer] Syr Pf 2ml Embospheres 100-300 - [id number] Implanted:Qty: 1 on 04/18/2021 by Kevin Lim DO at [facility] Left: Abdomen [employer] [id number] 11/25/2023 S220GH / / [id number] Lipiodol Injection - [id number] Implanted:Qty: 1 on 03/28/2022 at [facility] [employer] 03/01/2023 [id number] 01-2 / / [id number] Syr Pf 2ml Embospheres 100-300 - [id number] Implanted:Qty: 1 on 03/28/2022 at [facility] [employer] [id number] 08/31/2024 S220GH / / [id number] -5 Clareon Iol Aspheric Hydrophobic Acrylic Iol Implanted:Qty: 1 on 04/02/2023 by Cody Gonzalez DO at [facility] Right: Eye JAZMIN 11/12/2025 CNA0T0 / [id number] / documented as of this encounter Advance Directives Documents on File Type Date Recorded Patient Book Coverer Expl anation Advance Directives and Living Will 12/11/2022 ADVANCE DIRECTIVE / LIVING WILL LIVING WILL Power of Customer Service Operator 12/11/2022 POWER OF A TTORNEY * [...] Discussed due to patient's condition Care Teams Supply Chain Design Manager Relationship Specialty Start Date End Date Kristen Vences DO [address] [place] [address] PCP - General Family Medicine 05/19/24 documented as of this encounter
--- OUTSIDE RECORDS SUMMARY | 2024-06-12 23:59 | External Medical Summary | Summary of Care ---
Author Name Unknown Organization [facility] Address [address] [facility] [place] [address] Phone [phone] Care Team Providers Care Ambulance Driver Name Role Phone Vangie Kristenlang Rubin DO Primary Care Provider [phone] Reason for Visit * Reason Comments Hospital Follow-Up Patient presents in office today for a [facility] Hospital follow- up visit -- discharged on 05/30/2024. Encounter Details Date Type Department Care Team (Late st Contact Info) Description 06/05/2024 11:00 AM EDT Office Visit Family Practice [facility] [address] [facility] [place] [address] Robinson Olson CRNP 132 [facility] [place] [address] Hospital discharge follow-up*; Cirrhosis of liver with ascites, unspecified hepatic cirrhosis type (HCC); Liver cell carcinoma (HCC); Chronic right-sided low back pain with right-sided sciatica; Prostate cancer (HCC); Radiation cystitis; Aortic valve sclerosis; Chronic kidney disease, stage 3a (HCC) Allergies No known active allergiesdocumented as [...] liver 07/28/2014 GAVE (gastric antral vascular ectasia) 08/21/201 4 Type 2 diabetes mellitus wit h [...] mRNA, LNP-s, No Pre serve, 2-Dose Series (CoPromote) 03/08/2021,02/15/2021 HepA Inact/HepB Recomb>=18yrs old 12/04/2019,04/2019,05/20/2019 11/19/2019 [...] Sign Reading Time Taken Comments Blood Pressure 120/60 06/05/2024 10:44 AM EDT Pulse 61 06/05/2024 10:44 AM EDT Temperature - - Respiratory Rate 16 06/05/2024 10:44 AM EDT Oxygen Saturation 99% 06/05/2024 10:44 AM EDT Inhaled Oxygen Concentration - - Weight - - Height 177.8 cm (5' 10") 06/05/2024 10:44 AM EDT Body Mass Index - - documented in [...] Progress Notes * Robinson Olson CRNP - 06/05/2024 10:45 AM EDT Images from the original note were not included. 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 Multiple admission since 2021 per ER note Last admission 05/20/24-05/30/24 Following up with radiation oncology, SP heme/onc for anemia Plan for paracentesis weekly. Denies SOB or excessive fluid today. GI recommend outpatient EUS for possible pancreatic head mass. Hx of fracture about 1 year ago Back pain with right sciatica Had oxycodone from hospitlal, but was constipating Pain controlled with Tylenol Urology -- hematuria is less Has inpatient palliative care, plan to work on [employer] 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 CATARACT SURGERY,COMPLEX Left 04/23/2023 LEFT EXTRACAPSULAR CATARACT REMOVAL COMPLEX WITH IOL performed by Cody Gonzalez DO at OR [facility] COLONOSCOPY 08/27/2005 [place]/hemorrhoids non internal COLONOSCOPY, DIAGNOSTIC (RECTUM) 04/16/2013 COLONOSCOPY FLEXIBLE PROXIMAL DIAGNOSTIC performed by Salvador Lopez MD at ENDOSCOPY [facility], adenomatous polyps repeat colonoscopy in 3 years COLONOSCOPY, DIAGNOSTIC (RECTUM) 05/03/2016 adenomatous polyps, diverticulosis, repeat 5 yrs/COLONOSCOPY FLEXIBLE PROXIMAL DIAGNOSTIC performedby Salvador Lopez MD at ENDOSCOPY [facility] COLONOSCOPY, DIAGNOSTIC (RECTUM) 07/19/2020 adenomatous & hyperplastic polyps, diverticulosis, repeat 3 yrs / [facility] COLONOSCOPY, DIAGNOSTIC (RECTUM) 11/30/2021 mild XRT proctitis, diverticulosis / COLONOSCOPY FLEXIBLE PROXIMAL DIAGNOSTIC performed by Barbara March DO at ENDOSCOPY [facility] COLONOSCOPY, DIAGNOSTIC (RECTUM) 02/01/2022 Mild XRT proctitis / COLONOSCOPY FLEXIBLE PROXIMAL DIAGNOSTIC performed by Barbara March DO at ENDOS[facility] COLONOSCOPY, DIAGNOSTIC (RECTUM) N/A 11/07/2022 poor prep/diverticulosis sigmoid colon/rectal angioectasias consistent with radiation proctopathy/Colonoscopy/[place] COLONOSCOPY, DIAGNOSTIC (RECTUM) N/A 08/09/2023 poor prep/moderate diverticulosis/hemorrhoids/biopsies show adenomatous and hyperplastic polyps/recall 1 years/Colonoscopy/[place] CT ABDOMEN W IV AND W ORAL CONTRAST 01/10/2010 CYSTOSCOPY, REMOVAL OF CLOTS N/A 05/09/2024 CYSTOURETHROSCOPY WITH IRRIGATION AND EVACUATION OF CLOTS performed by Luis Whitehead, [facility] [place] [facility] CYSTOSCOPY/TREAT LGE BLADDER TUMOR N/A 05/09/2024 CYSTOURETHROSCOPY WITH FULGURATION LARGE BLADDER TUMOR performed by Luis Whitehead MD [place] [facility] [place]STOSCOPY/TREAT MED BLADDER TUMOR N/A 01/30/2024 CYSTOURETHROSCOPY WITH FULGURATION MEDIUM BLADDER TUMOR performed by Frank Peraza MD at OR [facility] EGD, FLEXIBLE, DIAGNOSTIC 07/22/2014 GE varices oozing blood, gastric polyp/ESOPHAGOGASTRODUODENOSCOPY (EGD), FLEXIBLE, TRANSORAL, DIAGNOSTIC performed by Juaquin Arrington MD at ENDOSCOPY [facility] EGD, FLEXIBLE, DIAGNOSTIC 07/23/2014 ESOPHAGOGASTRODUODENOSCOPY (EGD), FLEXIBLE, TRANSORAL, DIAGNOSTIC performed by Sophie Merino MD at [place] [facility] EGD, FLEXIBLE, DIAGNOSTIC 06/02/2019 eso & gastric varices, gastric polyps/ESOPHAGOGASTRODUODENOSCOPY (EGD), FLEXIBLE, TRANSORAL, DIAGNOSTIC performed by Salvador Lopez MD at ENDOSCOPY [facility] EGD, FLEXIBLE, DIAGNOSTIC 03/25/2020 portal hypertensive gastropathy, esophageal varices / INPT [facility] EGD, FLEXIBLE, DIAGNOSTIC 07/19/2020 eso varices, portal hypertensive gastropathy, repeat 3 mo / [facility] EGD, FLEXIBLE, DIAGNOSTIC 10/25/2020 Portal hypertensive gastropathy, eso varices / [facility] EGD, FLEXIBLE, DIAGNOSTIC 08/202222 Grade I esophageal varices / [facility] EGD, FLEXIBLE, DIAGNOSTIC N/A 09/11/2022 grade II esophageal varices/gastric antral vascular ectasia, treated with APC/repeat 3 months/EGD/[place] EGD, FLEXIBLE, DIAGNOSTIC N/A 11/07/2022 grade III esophageal varices, banded/gastric antral vascular ectasia/repeat 2 months/EGD/[place] EGD, FLEXIBLE, DIAGNOSTIC N/A 02/01/2023 [facility]< egd. / single G2 varix, banded and varices eradicated / no specimens collected / egd in 1 to 2 months / EGD, FLEXIBLE, DIAGNOSTIC N/A 08/09/2023 portal hypertensive gastropathy/repeat 1 year/EGD/[place] EGD, FLEXIBLE, DIAGNOSTIC 05/22/2023 GAVE, repeat 4-6 wks / [facility] IR CANCER THERASPHERE EMBOLIZATION 03/28/2022 IR EMBOLIZATION Left 04/18/2021 IMAGING SUPERVISION & INTERPRETATION TRANSCATHETER THERAPY, EMBOLIZATION performed by Kevin Lim DO at OR [facility] IR EMBOLIZATION ARTERIAL NON HEMMORHAGE Left 02/21/2022 EMBOLIZATION ARTERIAL; SUPERVISION & INTERPRETATION performed by Kevin Lim DO at OR [facility] IR EMBOLIZATION ARTERIAL NON HEMMORHAGE Left 06/05/2022 EMBOLIZATION ARTERIAL; SUPERVISION & INTERPRETATION performed by Kevin Lim DO at OR [facility] IR VENOUS TIPS 10/07/2020 REMOVAL OF TONSILS, UNDER AGE 12 age 6-7 Tonsils Removal,<12 Y/O SIGMOIDOSCOPY, DIAGNOSTIC 04/12/2022 radiation proctitis, diverticulosis / [facility] TIPS, REVISION N/A 01/24/2021 REVISION TRANSVENOUS INTRAHEPATIC PORTOSYSTEMIC SHUNT performed by Kevin Lim DO at OR [facility] TIPS, REVISION Right 10/19/2022 REVISION TRANSVENOUS INTRAHEPATIC PORTOSYSTEMIC SHUNT performed by Howie Valdovinos MD at OR [facility] TIPS, REVISION Right 02/20/2023 REVISION TRANSVENOUS INTRAHEPATIC PORTOSYSTEMIC SHUNT performed by Kevin Lim DO at OR [facility] Current Outpatient Medications Medication Sig Dispense Refill Spironolactone 100 MG Oral Tablet (Aldactone) Take 1 Tablet by mouth in the morning. Mag64 64 MG Oral Tablet Delayed Release Take 1 Tablet by mouth in the morning. Potassium Chloride Stephanie ER 20 MEQ Oral Tablet Extended Release 1 Tablet in the morning. Albumin Human 25 % Intravenous Solution If [...] 60 minute each unit 300 mL 100 Triamcinolone Acetonide 0.1 % External Cream (Aristocort) [...] 60 minute each unit 50 mL 0 Lantus SoloStar 100 UNIT/ML Subcutaneous Solution Pen-injector once. DULoxetine HCl 30 MG Oral Capsule Delayed Release Particles (Cymbalta) Take 1 Capsule by mouth in the morning. 90 Capsule 1 Lantus 100 UNIT/ML Subcutaneous Solution Inject 25 Units under the skin every evening. With dinner 3 Each 5 Allopurinol 100 MG Oral Tablet (Zyloprim) Take 2 Tablets by mouth in the morning. 180 Tablet 2 Finasteride 5 MG Oral Tablet (Proscar) Take 1 Tablet by mouth in the morning. 90 Tablet 1 Pantoprazole Sodium 40 MG Oral Tablet Delayed Release (Protonix) Take 1 Tablet by mouth in the morning and 1 Tablet in the evening. 60 Tablet 5 Metoclopramide HCl 5 MG Oral Tablet (Reglan) One tab as often as 3 times a day, if needed for nausea 90 Tablet 3 Albumin Human 25 % Intravenous Solution 25Gm before and after paracentesis 100 mL 0 oxygen IN GAS Use 2 L/min(Oxygen) as directed at bedtime. FreeStyle Wang 2 Sensor Use as directed. Every 14 days 2 Each 5 Probiotic (Lactobacillus) Oral Capsule 1 Capsule. High Potency Iron 65 MG Oral Tablet Take by mouth. N-Acetyl Cysteine 600 MG Oral Tablet (Acetylcysteine (Nutrient)) Take by mouth. Zinc 50 MG Oral Capsule Take 1 Capsule by mouth in the morning. Lactulose 10 GM Oral Packet (Kristalose) Take 1 Packet by mouth in the morning and 1 Packet before bedtime. 60 Packet 5 Mirtazapine 30 MG Oral Tablet (Remeron) Take 1 Tablet by mouth at bedtime. 90 Tablet 1 BD Pen Needle Elizabeth 2nd Gen 32G X 4 MM USE DIRECTED TO ADMINISTER INSULIN AT DINNER DAILY OneTouch Verio In Vitro Strip (Glucose Blood) Use to test blood sugars 3 times a day 300 Strip 5 oxyBUTYnin Chloride 5 MG Oral Tablet (Ditropan) Take 1 tablet by mouth every 8 hours as needed for bladder spasms. (Patient not taking: Reported on 06/05/2024) 30 Tablet 0 Cholestyramine 4 GM Oral Packet (Questran) Take 1 Packet by mouth in the morning and 1 Packet before bedtime. Mix with water and drink before a meal.. (Patient not taking: Reported on 06/05/2024) 60 Packet 5 Solifenacin Succinate 5 MG Oral Tablet (VESIcare) Take 1 Tablet by mouth in the morning. 30 Tablet 6 rifAXIMin 550 MG Oral Tablet (Xifaxan) Take 1 Tablet by mouth in the morning and 1 Tablet before bedtime. 180 Tablet 5 Multivitamin Men 50+ Oral Tablet Take by mouth. (Patient not taking: Reported on 06/05/2024) No current facility-administered medications for this visit. Review of patient's allergies indicates: No Known Allergies Most Recent Immunizations Administered Date(s) Administered COVID-19 mRNA, LNP-s, No Preserve, 2-Dose Series (CoPromote) 03/08/2021 HepA Inact/HepB Recomb>=18yrs old 12/04/2019 PPD [...] Age 7 and older, IM (Adacel) 02/12/2011 Review of Systems: Physical Exam There were no vitals taken for this visit. Physical Exam Constitutional: Appearance: Normal appearance. HENT: Head: Normocephalic. Cardiovascular: Rate and Rhythm: Normal rate and regular rhythm. Heart sounds: Murmur (systolic) heard. Pulmonary: Effort: Pulmonary effort is normal. Breath sounds: Normal breath sounds. Abdominal: General: Bowel sounds are normal. Musculoskeletal: General: No swelling. Arms: Cervical back: Neck supple. Lumbar back: Tenderness present. Skin: General: Skin is warm. Neurological: Mental Status: He is alert and oriented to person, place, and time. Psychiatric: Mood and Affect: Mood normal. Assessment and Plan 1. Hospital discharge follow-up Fluid retention. 2. Cirrhosis of liver with ascites, unspecified hepatic cirrhosis type (HCC) F/u GI 3. Liver cell carcinoma (HCC) Heme/onc 4. Chronic right-sided low back pain with right-sided sciatica X-ray to rule out metastasis - XR L SPINE AP AND LATERAL 5. Prostate cancer (HCC) F/u urology 6. Radiation cystitis 7. Aortic valve sclerosis 8. Chronic kidney disease, stage 3a (HCC) Nephrology Wrap-Up I have advised the patient to call our office with any worsening or new symptoms. I spent a total of 30-39 minutes (exact time 38 mins) on the date of service in preparation, delivery, and documentation of the care provided to Luis Hale excluding any time spent in the performance of separately billed services. Robinson Olson, JOSE, JEFF [facility] documented in this encounter Nursing Notes * Kmiberley Dukes MED ASSIST - 06/05/2024 10:40 AM EDT The patient has been properly identified by confirmation of name and date of . Chief Complaint Patient presents with Hospital Follow-Up Patient presents in office today for a [facility] Hospital follow-up visit -- discharged on 05/30/2024. documented in this encounter Plan of Treatment Upcoming Encounters Date Type Department Care Team (Late st Contact Info) Description 06/09/2024 7:00 AM EDT Laboratory Lab Mobile Phlebotomy [facility] [address] [place] [address] M[facility], [facility] [address] [place] [address] [address] 06/11/2024 11:30 AM EDT Appointment Interventional [place]iology [facility] 1[address] [facility] [address] 06/16/2024 7:00 AM EDT Laboratory Lab Mobile Phlebotomy [facility] [address] [place] [address] [facility], [facility] [address] [place], [place] [address] 06/23/2024 7:00 AM EDT Laboratory Lab Mobile Phlebotomy [facility] [address] [place] [address] [facility], [facility] [address] [place], [place] [address] 06/23/2024 2:00 PM EDT Office Visit Hematology/Oncology [facility] [address] [place], [place] [phone] Ayaka Tatum CRNP [address] [facility] [place] [address] 06/30/2024 7:00 AM EDT Laboratory Lab Mobile Phlebotomy [facility] [address] [place], [place] [address] [facility], [facility] [address] [place], [place] [address] 07/07/2024 7:00 AM EDT Laboratory Lab [facility] Phlebotomy [facility] [address] [place], [place] [address] [facility], [facility] [address] [place], [place] [address] 07/08/2024 1:00 PM EDT Office Visit Nephrology, [facility] [address] [place], [place] [address] Franki Herbert MD [address] [place], [place] [address] 07/09/2024 9:40 AM EDT Office Visit Family Practice [facility] [address] [facility] [place] [address] Kristen Vences DO [address] [place] [address] 07/14/2024 7:00 AM EDT Laboratory Lab [facility] Phlebotomy [facility] [address] [place] [address] [address] [facility], [facility] [address] [place] [place] [address] 07/21/2024 7:00 AM EDT Laboratory Lab Mobile Phlebotomy [facility] [address] [place] [address] [facility], [facility] [address] [place], [place] [address] 07/23/2024 9:30 AM EDT Office Visit Cardiology, [facility] [address] [facility] [place] [address] Carlee Salazar CRNP [address] [place] [address] 07/28/2024 7:00 AM EDT Laboratory Lab Mobile Phlebotomy [facility] [address] [place] [address] [facility], [facility] Draw [facility] [place] [address] 07/28/2024 2:00 PM EDT Office Visit Nephrology, [facility] [address] [place] [address] Franki Herbert MD [address] [place] [address] 08/04/2024 7:00 AM EDT Laboratory Lab Mobile Phlebotomy [facility] [address] [place] [address] [facility], [facility] [address] [place] [address] [address] 08/11/2024 7:00 AM EDT Laboratory Lab Mobile Phlebotomy [facility] [address] [place] [address] [facility], [facility] [address] [place], [place] [address] 08/18/2024 7:00 AM EDT Laboratory Lab Mobile Phlebotomy [facility] [address] [place] [address] [facility], [facility] [address] [facility] [place], [place] [address] 08/20/2024 10:15 AM EDT Office Visit Ophthalmology, [facility] [address] [place] [address] Cody Gonzalez, DO [address] [facility] [place] [address] 08/25/2024 7:00 AM EDT Laboratory Lab Mobile Phlebotomy [facility] [address] [facility] [place], [place] [address] [facility], [facility] [address] [facility] [place], [place] [address] 09/01/2024 7:00 AM EDT Laboratory Lab Mobile Phlebotomy [facility] [address] [facility] [place], [place] [address] [facility], [facility] [address] [facility] [place], [place] [address] 09/08/2024 7:00 AM EDT Laboratory Lab Mobile Phlebotomy [facility] [address] [place], [place] [address] [facility], [facility] [address] [facility] [place], [place] [address] 09/15/2024 7:00 AM EDT Laboratory Lab Mobile Phlebotomy [facility] [address] [facility] [place], [place] [address] [facility], [facility] [address] [facility] [place] [address] 09/22/2024 7:00 AM EDT Laboratory Lab Mobile Phlebotomy [facility] [address] [place], [place] [address] [facility], [facility] [address] [facility] [place] [address] 09/29/2024 7:00 AM EDT Laboratory Lab Mobile Phlebotomy [facility] [address] [facility] [place], [place] [address] [facility], [facility] [address] [place] [address] 10/06/2024 7:00 AM EST Laboratory Lab Mobile Phlebotomy [facility] [address] [facility], [place] [address] [facility], [facility] [address] [place] [address] 10/12/2024 10:20 AM EST Office Visit Pulmonary Medicine, [facility] [address] [place] [address] Jordan Stanley MD [address] [place] [address] 10/13/2024 7:00 AM EST Laboratory Lab [facility] Phlebotomy [facility] [address] [place] [address] [facility], [facility] [address] [place] [address] 10/20/2024 7:00 AM EST Laboratory Lab [facility] Phlebotomy [facility] [address] [place] [address] [facility], [facility] [address] [place] [address] 10/27/2024 7:00 AM EST Laboratory Lab [facility] Phlebotomy [facility] [address] [place] [address] [facility], [facility] [address] [place] [address] 10/30/2024 10:00 AM EST Office Visit [place] [address] [place] [address] Frank Peraza MD [address] [place] [address] Pending Results Name Type Priority Associated Diagnoses Date /Time XR L SPINE AP AND LATERAL Medical Imaging Routine Chronic right-sided low back pain with right-sided sciatica 06/05/2024 11:43 AM EDT Scheduled Procedures Name Priority Associated [...] Additional history exists CKD PHOS USE SMARTSET 12282 05/19/202505/02, 05/08/2024, 04/07/2024, Additional history exists Diabetic Foot Exam 05/19/2025 05/19/2024, 0 03/06/2023, 01/03/2022, Additional history exists CKD HGB USE SMARTSET 08639 06/03/202506/03, 05/19/2024, 05/19/2024, Additional history exists Sigmoidoscopy [...] this encounter Medical Devices Implanted Type Area Principal Librarian Device Identifier Shelf Expiration Date Model / Serial / Lot Clareon Iol Aspheric Hydrophobic Acrylic Iol Implanted:Qty: 1 on 04/23/2023 by Cody Gonzalez DO at OR [facility] Lens Left: Eye 11/12/2025 [id number] / [id number] / Viatorr Tips Endoprosthesis 8-10 Mm X 8cm / 2cm Implanted:Qty: 1 on 10/07/2020 by Go Alvarado MD at [facility] Right: Abdomen 03/03/2023 [id number] / / [id number] Description:Viatorr TIPS End oprosthesis 8-10 mm x 8cm / 2cm, Manufactored by [employer] Syr Pf 2ml Embospheres 100-300 - [id number] Implanted:Qty: 1 on 04/18/2021 by Kevin Lim DO at OR [facility] Left: Abdomen [employer] [id number] 11/25/2023 [id number] / / [id number] -[id number] Lipiodol Injection - [id number] Implanted:Qty: 1 on 03/28/2022 at [facility] [employer] 03/01/2023 [id number] / / [id number] Syr Pf 2ml Embospheres 100-300 - [id number] Implanted:Qty: 1 on 03/28/2022 at [facility] [employer] [id number] 08/31/2024 [id number] / / [id number] -[id number] Clareon Iol Aspheric Hydrophobic Acrylic Iol Implanted:Qty: 1 on 04/02/2023 by Cody Gonzalez DO at OR [facility] Right: Eye JAZMIN 11/12/2025 [id number] / [id number] / documented as of this encounter Visit Diagnoses Diagnosis Hospital discharge follow-up- Primary Other follow-up examination Cirrhosis of liver with ascites, unspecified hepatic cirrhosis type (HCC) Liver cell carcinoma (HCC) Malignant neoplasm of liver, primary Chronic right-sided low back pain with right-sided sciatica Prostate cancer (HCC) Malignant neoplasm of prostate Radiation cystitis Irradiation cystitis Aortic valve sclerosis Aortic valve disorders Chronic kidney disease, stage 3a (HCC) documented in this encounter Advance Directives Documents on File Type Date Recorded Patient Thaw Shed Heater Tender Expl anation Advance Directives and Living Will 12/11/2022 ADVANCE DIRECTIVE / LIVING WILL LIVING WILL Power of Warehouse Loader 12/11/2022 POWER OF A TTORNEY * Full [...] Discussed due to patient's condition Care Teams Ambulance Driver Relationship Specialty Start Date End Date Kristen Vences DO [address] [place] [address] PCP - General Family Medicine 05/19/24 documented as of this encounter
--- OUTSIDE RECORDS SUMMARY | 2024-06-12 23:59 | External Medical Summary ---
Author Name Unknown Address Unknown Organization K01:LABORATORY [facility] [place] - [address] [place] [address] Laboratory Report Ordering Provider Test Date Status HOWARD LEALFausto 06/11/2024 10:09:07 Final Observation Date Value Abnormality Reference (Units ) Status Bilirubin, Direct 06/11/2024 10:09:07 0.4 Above high normal 0.0-0.3 (mg/dL) Final Performing Location [facility] [place] - [address] [place] [address]
--- OUTSIDE RECORDS SUMMARY | 2024-06-12 23:59 | External Medical Summary ---
Author Name Unknown Address Unknown Organization K01:[facility] [place] [facility] [place] [address] Laboratory Report Ordering Provider Test Date Status PATRICIA LEAL 06/11/2024 10:09:07 Final Warfarin Therapy
INR: 2 .0-3.0 conventional anticoagulation
INR: 2.5- 3.5 high intensity anticoagulation Observation Date Value Abnormality Reference (Units ) Status PT 06/11/2024 10:09:07 16.5 Above high normal 11 .6-15.2 (seconds) Final INR 06/11/2024 10:09:07 1.3 Above high normal 0. 8-1.2 Final Performing Location [facility] [place] [address] [place] [address]
--- OUTSIDE RECORDS SUMMARY | 2024-06-12 23:59 | External Medical Summary | Summary of Care ---
Author Name Unknown Organization [facility] Address [address] [place] [address] Phone [phone] Care Team Providers Care Photonics Engineering Technician Name Role Phone VangieKristen shahid Caryn SANDOVAL Primary Care Provider [phone] Encounter Details Date Type Department Care Team (Late st Contact Info) Description 06/09/2024 Orders Only [place] [facility] [place] [facility] 1st Floor [address] [place] [address] Kriss Apple LPN Encounter for general adult medical examination w/o abnormal findings* Allergies No known active allergiesdocumented as of this encounter (statuses as of 06/09/2024) Medications Medication Sig Dispensed Refills Start Date [...] as of this encounter (statuses as of 06/09/2024) Active Problems Problem Noted Date Diagnosed Date [...] as of this encounter (statuses as of 06/09/2024) Resolved Problems Problem Noted Date Diagnosed Date Resolved Date Acute blood loss anemia 05/08/202405/024 Hematuria, gross 12/19/2023 05/11/2024 Closed compression fracture [...] as of this encounter (statuses as of 06/09/2024) Immunizations Name Administration Dates Next Due COVID-19 mRNA, LNP-s, No Pre serve, 2-Dose Series (Anagran) 03/08/2021,02/15/2021 HepA Inact/HepB Recomb>=18yrs old 12/04/2019,04/2019,05/20/2019 11/19/2019 [...] 18 years and over) Not on file 3 Are you (or your family) tomer eless [...] Team (Late st Contact Info) Description 06/11/2024 11:30 AM EDT Hospital Encounter [place] [facility] [place] 1st [address] [facility] [address] 06/16/2024 7:00 AM EDT Laboratory Lab Mobile Phlebotomy [facility] [address] [place] [place] [address] M[facility], [facility] Mobile Home Draw [address] [place] [address] [address] 06/23/2024 7:00 AM EDT Laboratory Lab Mobile Phlebotomy [facility] [address] [place] [address] M[facility]mg, [facility] [address] [place] [address] [address] 06/23/2024 2:00 PM EDT Office Visit Hematology[facility] [address] [place] [phone] Ayaka Tatum CRNP [address] [place] [address] 06/30/2024 7:00 AM EDT Laboratory Lab Mobile Phlebotomy [facility] [address] [place] [address] [address] Mvmg, [facility] [address]20 [facility] [place] [address] 07/07/2024 7:00 AM EDT Laboratory Lab Mobile Phlebotomy [facility] [address] [facility] [place], [place] [address] Mvmg, [facility] Draw [address] [facility] [place], [place] [address] 07/08/2024 1:00 PM EDT Office Visit Nephrology, George [place]ens[place] [address] [place], [place] [address] Franki Herbert MD 200 [place] [address] 07/09/2024 9:40 AM EDT Office Visit Family Practice [facility] [address] Kristen Vences DO [facility] [address] 07/14/2024 7:00 AM EDT Laboratory Lab Mobile Phlebotomy [facility] [address] [facility] [place], [place] [address] Mvmg, [facility] Draw [address] [facility] [place] [address] 07/21/2024 7:00 AM EDT Laboratory Lab Mobile Phlebotomy [facility] [address] [facility] [place] [address] Mvmg, [facility] Draw [address] [facility] [place] [address] 07/23/2024 9:30 AM EDT Office Visit Cardiology, [facility] 132 [address] [facility] [place] [address] Carlee Salazar CRNP [address] [facility] [place] [address] 07/28/2024 7:00 AM EDT Laboratory Lab Mobile Phlebotomy [facility] 2520 [facility], [place] [address] Mvmg, [facility] Mobile [facility] Draw [address] [place], [place] [address] 07/28/2024 2:00 PM EDT Office Visit Nephrology, [facility] 200 [facility] [place], [place] [address] Franki Hrebert MD 200 [facility] [place], [place] [address] 08/04/2024 7:00 AM EDT Laboratory Lab Mobile Phlebotomy [facility] [address] [employer] [place], [place] [address] Mvmg, [facility] Draw [address] [place] [address] [place] [address] 08/11/2024 7:00 AM EDT Laboratory Lab Mobile Phlebotomy [facility] [address] [employer] [place] [address] [place] [address] Mvmg, [facility] Draw [address] [place] [employer] [place], [place] [address] 08/18/2024 7:00 AM EDT Laboratory Lab Mobile Phlebotomy [facility] [address] [employer] [place] [place], [place] [address] Mvmg, [facility] Draw [address] [facility] [place], [place] [address] 08/20/2024 10:15 AM EDT Office Visit Ophthalmology, [facility] 132 [facility] [place] [address] Cody Gonzalez, DO [address] [place] [address] 08/25/2024 7:00 AM EDT Laboratory Lab Mobile Phlebotomy [facility] [address] [employer] [place] [address] [place] [address] Mvmg, [facility] Draw [address] [place], [place] [address] 09/01/2024 7:00 AM EDT Laboratory Lab Mobile Phlebotomy [facility] [address] [place] [address] Mvmg, [facility] Draw [address] [facility] [place] [address] 09/08/2024 7:00 AM EDT Laboratory Lab Mobile Phlebotomy [facility] [address] [facility] [place] [address] Mvmg, [facility] Draw [address] [facility] [place] [address] 09/15/2024 7:00 AM EDT Laboratory Lab Mobile Phlebotomy [facility] [address] [place] [address] Mvmg, [facility] Draw [address] [facility] [place] [address] 09/22/2024 7:00 AM EDT Laboratory Lab Mobile Phlebotomy [facility] [address] [place] [address] Mvmg, G[facility] Draw [address] [place] [address] 09/29/2024 7:00 AM EDT Laboratory Lab Mobile Phlebotomy [facility] [address] [place] [address] Mvmg, G[facility] Mobile [facility] Draw [address] [place] [address] 10/06/2024 7:00 AM EST Laboratory Lab Mobile Phlebotomy [facility] [address] [place] [address] Mvmg, [facility] Mobile [facility] Draw [address] [place] [address] 10/12/2024 10:20 AM EST Office Visit Pulmonary Medicine, [facility] [address] [address] Jordan Stanley MD [address] [place] [address] [address] 10/13/2024 7:00 AM EST Laboratory Lab Mobile Phlebotomy [facility] [address] [place] [address] Mvmg, [facility] Mobile [facility] Draw [address] [place] [address] 10/20/2024 7:00 AM EST Laboratory Lab Mobile Phlebotomy [facility] [address] [employer] [facility] [place], [place] [address] Mvmg, [facility] Mobile Home Draw [address] [facility] [place], [place] [address] 10/27/2024 7:00 AM EST Laboratory Lab Mobile Phlebotomy [facility] [address] [employer] [place], [place] [address] Mvmg, [facility] Draw [address] [employer] [facility] [place] [address] 10/30/2024 10:00 AM EST Office Visit Urology Lynnette Fitzpatrick [address] [place] [address] [address] Frank Peraza MD 27 [place] [address] Scheduled Orders Name Type Priority Associated Diagnoses Orde r Schedule CBC Lab STAT Encounter for general adult medical examination w/o abnormal findings Expected: 06/11/2024, Expires: 07/10/2024 COMPREHENSIVE METABOLIC PANEL Lab STAT Encounter for general adult medical examination w/o abnormal findings Expected: 06/11/2024, Expires: 07/10/2024 PT INR Lab STAT Encounter for general adult medical examination w/o abnormal findings Expected: 06/11/2024, Expires: 07/10/2024 BILIRUBIN, DIRECT Lab Routine Encounter for general adult medical examination w/o abnormal findings Expected: 06/11/2024, Expires: 06/09/2025 Scheduled Procedures Name Priority Associated Diagnoses Date/Ti [...] Additional history exists CKD PHOS USE SMARTSET 25886 05/19/202505/02, 05/08/2024, 04/07/2024, Additional history exists Diabetic Foot Exam 05/19/2025 05/19/2024, 0 03/06/2023, 01/03/2022, Additional history exists CKD HGB USE SMARTSET 16386 06/03/202506/03, 05/19/2024, 05/19/2024, Additional history exists Sigmoidoscopy [...] this encounter Medical Devices Implanted Type Area Call Center Recruiter Device Identifier Shelf Expiration Date Model / Serial / Lot Clareon Iol Aspheric Hydrophobic Acrylic Iol Implanted:Qty: 1 on 04/23/2023 by Cody Gonzalez DO at OR [facility] Lens Left: Eye 11/12/2025 CNA0T0 / [id number] / Viatorr Tips Endoprosthesis 8-10 Mm X 8cm / 2cm Implanted:Qty: 1 on 10/07/2020 by Go Alvarado MD at [facility] Right: Abdomen 03/03/2023 [id number] / / [id number] Description:Viatorr TIPS End oprosthesis 8-10 mm x 8cm / 2cm, Manufactored by [employer] Syr Pf 2ml Embospheres 100-300 - [id number] Implanted:Qty: 1 on 04/18/2021 by Kevin Lim DO at OR [facility] Left: Abdomen [employer] [id number] 11/25/2023 S220GH / / [id number] Lipiodol Injection - [id number] Implanted:Qty: 1 on 03/28/2022 at [facility] [employer] 03/01/2023 [id number] 01-2 / / [id number] Syr Pf 2ml Embospheres 100-300 - [id number] Implanted:Qty: 1 on 03/28/2022 at [facility] [employer] [id number] 08/31/2024 S220GH / / [id number] -[id number] Clareon Iol Aspheric Hydrophobic Acrylic Iol Implanted:Qty: 1 on 04/02/2023 by Cody Gonzalez DO at OR [facility] Right: Eye JAZMIN 11/12/2025 CNA0T0 / [id number] / documented as of this encounter Visit Diagnoses Diagnosis Encounter for general adult medical examination w/o abnormal findings- Primary Unspecified general medical examination documented in this encounter Advance Directives Documents on File Type Date Recorded Patient Double Ending Machine Operator Expl anation Advance Directives and Living Will 12/11/2022 ADVANCE DIRECTIVE / LIVING WILL LIVING WILL Power of Acid Operator 12/11/2022 POWER OF A TTORNEY * [...] Discussed due to patient's condition Care Teams Photonics Engineering Technician Relationship Specialty Start Date End Date Kristen Vences DO [address] [address] PCP - General Family Medicine 05/19/24 documented as of this encounter
--- OUTSIDE RECORDS SUMMARY | 2024-06-12 23:59 | External Medical Summary ---
Author Name Unknown Address Unknown Organization K01:[place] [facility] [place] [facility] [address] [address] [facility] [place] [address] Laboratory Report Ordering Provider Test Date Status PATRICIA LEAL 06/11/2024 10:09:07 Final Observation Date Value Abnormality Reference (Units ) Status WBC, Total 06/11/2024 10:09:07 2.66 Below low normal 4.00-10.80 (K/uL) Final RBC 06/11/2024 10:09:07 2.67 4.50-5.25 (M/uL) Final Hemoglobin 06/11/2024 10:09:07 8.6 Below low normal 14.0-16.8 (g/dL) Final HCT 06/11/2024 10:09:07 26.4 Below low normal 40.0-48.4 (%) Final MCV 06/11/2024 10:09:07 98.9 82.0-99.5 (fL) Final MCH 06/11/2024 10:09:07 32.2 27.0-34.0 (pg) Final MCHC 06/11/2024 10:09:07 32.6 32.0-36.0 (g/dL) Final RDW 06/11/2024 10:09:07 17.9 11.5-15.5 (%) Final Platelets 06/11/2024 10:09:07 79 Below low normal 140-400 (K/uL) Final MPV 06/11/2024 10:09:07 12.0 6.6-11.1 (fL) Final Nucleated erythrocytes/100 leukocytes [Ratio] in Blood by Automated count 06/11/2024 10:09:07 0 <=0 (/100 WBCs) Final Performing Location [facility] [facility] [place] [address] [place] [address]
--- OUTSIDE RECORDS SUMMARY | 2024-06-12 23:59 | External Medical Summary ---
Author Name Unknown Address Unknown Organization K01:LABORATORY [address] [facility] [address] Laboratory Report Ordering Provider Test Date Status CHELSEY BISWAS 06/09/2024 10:45:00 Final Observation Date Value Abnormality Reference (Units ) Status WBC, Total 06/09/2024 10:45:00 2.40 Below low normal 4.00-10.80 (K/uL) Final RBC 06/09/2024 10:45:00 2.68 4.50-5.25 (M/uL) Final Hemoglobin 06/09/2024 10:45:00 8.6 Below low normal 14.0-16.8 (g/dL) Final HCT 06/09/2024 10:45:00 27.5 Below low normal 40.0-48.4 (%) Final MCV 06/09/2024 10:45:00 102.6 82.0-99.5 (fL) Final MCH 06/09/2024 10:45:00 32.1 27.0-34.0 (pg) Final MCHC 06/09/2024 10:45:00 31.3 32.0-36.0 (g/dL) Final RDW 06/09/2024 10:45:00 18.0 11.5-15.5 (%) Final Platelets 06/09/2024 10:45:00 83 Below low normal 140-400 (K/uL) Final MPV 06/09/2024 10:45:00 10.8 6.6-11.1 (fL) Final Nucleated erythrocytes/100 leukocytes [Ratio] in Blood by Automated count 06/09/2024 10:45:00 0 <=0 (/100 WBCs) Final Performing Location [place] [facility] [place] [address] [facility] [address]
--- OUTSIDE RECORDS SUMMARY | 2024-06-13 | External Medical Summary | Summary of Care ---
Author Name Unknown Organization [facility] Address [address] [facility] [facility] [address] Phone [phone] Care Team Providers Care Meal Packer Name Role Phone VangieKristen shahid Caryn SANDOVAL Primary Care Provider [phone] Reason for Visit * Reason Onset Date Comments Advice 06/02/2024 Order Request 06/02/2024 Encounter Details Date Type Department Care Team (Late st Contact Info) Description 06/02/2024 Telephone Gastroenterology, [facility] [address] [place] [address] Lamar Tatum CRNP [address] [place] [address] Advice; Order Request Allergies No known active [...] mRNA, LNP-s, No Pre serve, 2-Dose Series (Stayhound) 03/08/2021,02/15/2021 HepA Inact/HepB Recomb>=18yrs old 12/04/2019,04/2019,05/20/2019 11/19/2019 PPD 06/18/2017, 3,01/09/2012,06/2011 Pneumococcal Conjugate Vacc, 13 Valent (Prevnar) 05/01/2017 Pneumococcal Polysaccharide PPV23 (Pneumovax) 08/28/2022,10/25/2015,07/14/2012 Season Influenza, Quad, PF, Adjuvanted, 65+ Yrs, IM (FLUAD) 10/07/2020(Deferred: Patient Refused - pt says he already had his shot last month at [facility] [place] [...] 08/14/2023 Does the household have a re lar source of income? (Household - for ages [...] EDT Patient received a parsion pieces from [facility]. He talked to [facility] yesterday and the request that was sent [...] Description 06/05/2024 11:00 AM EDT Office Visit [facility] [address] [place] [address] Robinson Olson CRNP [address] [address] 06/09/2024 7:00 AM EDT Laboratory Lab Mobile Phlebotomy [facility] [address] [place] [address] [address] Mvmg, [facility] Draw [address] [address] 06/11/2024 11:30 AM EDT Appointment Interventional Radiology [facility] [address] [facility] [address] 06/16/2024 7:00 AM EDT Laboratory Lab Mobile Phlebotomy [facility] [address] [place] [address] [place] [address] Mvmg, [facility] Draw [address] [address] 06/23/2024 7:00 AM EDT Laboratory Lab Mobile Phlebotomy [facility] [address] [address] Mvmg, [facility] Draw [address] [address] 06/23/2024 2:00 PM EDT Office Visit Hematology/On[place] [facility] [address] [phone] Ayaka Tatum CRNP [address] [place], [place] [address]J[place] [address] 06/30/2024 7:00 AM EDT Laboratory Lab Mobile Phlebotomy [facility] [address] [place] [address] Mvmg, [facility] Draw [address] [address] 07/07/2024 7:00 AM EDT Laboratory Lab Mobile Phlebotomy [facility] [address] [address] Mvmg, [facility] Draw [address] [address] 07/08/2024 1:00 PM EDT Office Visit Nephrology, [facility] [address], [place] [address] Franki Herbert MD 200 [facility] [place] [address] 07/09/2024 9:40 AM EDT Office Visit Family Practice [facility] [place] [address] Kristen Vences DO [address] [place] [address] 07/14/2024 7:00 AM EDT Laboratory Lab Mobile Phlebotomy [facility] [address] [employer] [place] [address] Mvmg, [facility] Mobile Home Draw [address] [facility] [place], [place] [address] 07/21/2024 7:00 AM EDT Laboratory Lab Mobile Phlebotomy [facility] [address] [employer] [place] [address] Mvmg, Gml Mobile Home Draw 2520 [facility] [place], [place] [address] 07/23/2024 9:30 AM EDT Office Visit Cardiology, [facility] [place] [address] Carlee Salazar CRNP 132 [facility] [place] [address] 07/28/2024 7:00 AM EDT Laboratory Lab Mobile Phlebotomy [facility] [address] [employer] [place], [place] [address] Mvmg, [facility] Mobile [facility] Draw 2520 [facility] [place], [place] [address] 07/28/2024 2:00 PM EDT Office Visit Nephrology, George Blankenship [address] [place] [address] Franki Herbert MD [address], [place] [address] 08/04/2024 7:00 AM EDT Laboratory Lab Mobile Phlebotomy [facility] [address] [employer] [place], [place] [address] Mvmg, Gml Mobile Home Draw 2520 [place] [address] 08/11/2024 7:00 AM EDT Laboratory Lab Mobile Phlebotomy [facility] [address] [facility] [place], [place] [address] Mvmg, Gml Mobile Home Draw 2520 [facility] [place], [place] [address] 08/18/2024 7:00 AM EDT Laboratory Lab Mobile Phlebotomy [facility] 25[address] [facility] [place], [place] [address] Mvmg, Gml Mobile Home Draw 2520 [facility] [place], [place] [address] 08/20/2024 10:15 AM EDT Office Visit Ophthalmology, [facility] 132 [facility] [place] [address] Cody Gonzalez, DO 21 [facility] [address] 08/25/2024 7:00 AM EDT Laboratory Lab Mobile Phlebotomy [facility] 2520 [facility] [place], [place] [address] Mvmg, G[facility] Draw 2520 [facility] [place], [place] [address] 09/01/2024 7:00 AM EDT Laboratory Lab Mobile Phlebotomy [facility] 25[address] [facility] [place], [place] [address] Mvmg, Gml Mobile Home Draw 2520 [facility] [place], [place] [address] 09/08/2024 7:00 AM EDT Laboratory Lab Mobile Phlebotomy [facility] [address] [facility] [place], [place] [address] Mvmg, Gml Mobile Home Draw 2520 [facility] [place], [place] [address] 09/15/2024 7:00 AM EDT Laboratory Lab Mobile Phlebotomy [facility] [address] [facility] [place], [place] [address] Mvmg, Gml Mobile Home Draw [address] [place] [address] 09/22/2024 7:00 AM EDT Laboratory Lab Mobile Phlebotomy [facility] [address] [place] [address] Mvmg, Gml Mobile Home Draw 2520 [place] [place] [address] 09/29/2024 7:00 AM EDT Laboratory Lab Mobile Phlebotomy [facility] [address] [place] [address] Mvmg, Gml Mobile Home Draw 25[address] [place] [address] 10/06/2024 7:00 AM EST Laboratory Lab Mobile Phlebotomy [facility] 25[address] [place] [address] Mvmg, Gml Mobile Home Draw 2520 [place] [address] 10/12/2024 10:20 AM EST Office Visit Pulmonary Medicine, [facility] 132 [facility] [place] [address] Jordan Stanley MD [address] [address] 10/13/2024 7:00 AM EST Laboratory Lab Mobile Phlebotomy [facility] [address] [place] [address] Mvmg, Gml Mobile [facility] Draw 2520 [place] [address] 10/20/2024 7:00 AM EST Laboratory Lab Mobile Phlebotomy [facility] [address] [place] [address] Mvmg, Gml Mobile Home Draw 2520 [place] [address] 10/27/2024 7:00 AM EST Laboratory Lab Mobile Phlebotomy [facility] [address] [place] [address] Mvmg, Gml Mobile Home Draw [address] [employer] [place] [address] 10/30/2024 10:00 AM EST Office Visit Urology Lynnette Fitzpatrick [address] [place] [address] Frank Peraza MD 27 [place] [address] Scheduled Procedures Name Priority Associated Diagnoses Date/Ti [...] Additional history exists CKD HGB USE SMARTSET 14353 05/19/202505/19, 05/19/2024, 05/18/2024, Additional history exists CKD PHOS USE SMARTSET 99108 05/19/202505/02, 05/08/2024, 04/07/2024, Additional history exists Diabetic [...] this encounter Medical Devices Implanted Type Area Global Process Owner Device Identifier Shelf Expiration Date Model / Serial / Lot Clareon Iol Aspheric Hydrophobic Acrylic Iol Implanted:Qty: 1 on 04/23/2023 by Cody Gonzalez DO at [facility] Lens Left: Eye 11/12/2025 CNA0T0 / [id number] / Viatorr Tips Endoprosthesis 8-10 Mm X 8cm / 2cm Implanted:Qty: 1 on 10/07/2020 by Go [facility]ado MD at [facility] Right: Abdomen 03/03/2023 [id number] / / [id number] Description:Viatorr TIPS End oprosthesis 8-10 mm x 8cm / 2cm, Manufactored by [employer] Syr Pf 2ml Embospheres 100-300 - [id number] Implanted:Qty: 1 on 04/18/2021 by Kevin Lim DO at OR [facility] Left: Abdomen [employer] [id number] 11/25/2023 S220GH / / [id number] Lipiodol Injection - [id number] Implanted:Qty: 1 on 03/28/2022 at [facility] [employer] 03/01/2023 [id number] 01-2 / [id number] Syr Pf 2ml Embospheres 100-300 - [id number] Implanted:Qty: 1 on 03/28/2022 at [facility] [employer] [id number] 08/31/2024 S220GH / / [id number] -[id number] Clareon Iol Aspheric Hydrophobic Acrylic Iol Implanted:Qty: 1 on 04/02/2023 by Cody Gonzalez DO at OR [facility] Right: Eye JAZMIN 11/12/2025 CNA0T0 / [id number] / documented as of this encounter Advance Directives Documents on File Type Date Recorded Patient Consulting Sales Manager Expl anation Advance Directives and Living Will 12/11/2022 ADVANCE DIRECTIVE / LIVING WILL LIVING WILL Power of Cad Engineer 12/11/2022 POWER OF A TTORNEY * [...] Discussed due to patient's condition Care Teams Meal Packer Relationship Specialty Start Date End Date Kristen Vences DO [address] [place] [address] PCP - General Family Medicine 05/19/24 documented as of this encounter
--- OUTSIDE RECORDS SUMMARY | 2024-06-13 | External Medical Summary | Summary of Care ---
Author Name Unknown Organization [facility] Address [address] [facility] [address] Phone [phone] Care Team Providers Care Medical Office Technician Name Role Phone VangieKristen shahid Caryn SANDOVAL Primary Care Provider [phone] Reason for Referral * Precert (Within 10 days (routine)) - Authorized Specialty Diagnoses / Procedures Referred By Contac t Referred To Contact Radiology Diagnoses Cirrhosis of liver with ascites, unspecified hepatic cirrhosis type (HCC) Procedures IR PARACENTESIS Angie Barbosa CRNP [address] [place] [address] Referral ID Status Reason Start Date Expiration Date V isits Requested Visits Authorized [id number] Authorized 06/03/2024 52 52 Reason for Visit * Reason Onset Date Comments Advice 06/02/2024 Order Request 06/02/2024 Encounter Details Date Type Department Care Team (Late st Contact Info) Description 06/02/2024 Telephone Gastroenterology, [facility] [address] [place] [address] Angie Barbosa CRNP [address] [place] [address] Advice; Order Request Allergies No known active [...] LNP-s, No Pre serve, 2-Dose Series ([employer]) 03/08/2021,02/15/2021 HepA Inact/HepB Recomb>=18yrs old 12/04/2019,04/2019,05/20/2019 11/19/2019 [...] US Guided Paracentesis Order yes Diagnostic ONLY? K74.60,R18.8 (ICD-10-CM) - Cirrhosis of liver with ascites, unspecified hepatic cirrhosis type (HCC) Fluid removal amount addressed? Addressed in Referral Albumin orders printed/rate addressed?no Coags ordered?no (Please check that they were not drawn at DOS) Is patient on blood thinners?no If yes- nursing please address prior to forwarding to scheduling Is patient Diabetic?yes If yes, please remind patient they will be NPO 4 hours prior to paracentesis and may need to consult with who manages their diabetic medications Patient scheduling preferences: * Addendum Note - Angie Barbosa CRNP [...] EDT Patient received a parsion pieces from [facility]. He talked to [facility] yesterday and the request that was [...] 06/05/2024 11:00 AM EDT Office Visit Family [facility] [address] [address] Robinson Olson CRNP [address] [address] 06/09/2024 7:00 AM EDT Laboratory Lab Mobile Phle[facility] [address] [facility] [address] [facility] [address] [place], [place] [address] 06/11/2024 11:30 AM EDT Appointment Interventional Radiology [facility], Beth Hoodisela 1st Floor [address] [place] [address] 06/16/2024 7:00 AM EDT Laboratory Lab Mobile Phlebotomy [facility] [address] [place] [address] Mvmg, Gml [facility] Draw [address] [place], [place] [address] 06/23/2024 7:00 AM EDT Laboratory Lab Mobile Phlebotomy [facility] [address] [place] [address] Mvmg, Gml Mobile Home Draw 2520 [facility] [place], [place] [address] 06/23/2024 2:00 PM EDT Office Visit [facility]ology[facility] [place] 200 [facility] [place] [address] Ayaka Barbosa CRNP 400 [place] [address] 06/30/2024 7:00 AM EDT Laboratory Lab Mobile Phlebotomy [facility] [address] [place] [address] Mvmg, Gml [facility] Draw [address] [place] [place] [address] 07/07/2024 7:00 AM EDT Laboratory Lab Mobile Phlebotomy [facility] [address] [facility] [place] [address] Mvmg, Gml Mobile [facility] Draw 2520 [facility] [place] [address] 07/08/2024 1:00 PM EDT Office Visit Nephrology, [facility] [address] [place], [place] [address] Franki Herbert MD 200 [facility] [place] [address] 07/09/2024 9:40 AM EDT Office Visit Family Practice [facility] [address] [facility] [place] [address] Kristen Vences DO [address] [place] [address] 07/14/2024 7:00 AM EDT Laboratory Lab Mobile Phlebotomy [facility] [address] [place] [address] Mvmg, Gml [facility] Draw 25[address] [facility] [place] [address] 07/21/2024 7:00 AM EDT Laboratory Lab Mobile Phlebotomy [facility] [address] [place] [address] Mvmg, Gml Mobile Home Draw [address] [place] [employer] [address] 07/23/2024 9:30 AM EDT Office Visit Cardiology, [facility] [address] [facility] [place] [address] Carlee Salazar CRNP 132 [facility] [address] 07/28/2024 7:00 AM EDT Laboratory Lab Mobile Phlebotomy [facility] [address] [place] [address] [address] Mvmg, Gml Mobile Home Draw [address] [facility] [place], [place] [address] 07/28/2024 2:00 PM EDT Office Visit Nephrology, George Blankenship [address] [address] Franki Herbert MD [address] [place] [place] [address] 08/04/2024 7:00 AM EDT Laboratory Lab Mobile Phlebotomy [facility] [address] [place] [address] Mvmg, Gml Mobile Home Draw 25[address] [facility] [place] [address] 08/11/2024 7:00 AM EDT Laboratory Lab Mobile Phlebotomy [facility] [address] [facility] [place], [place] [address] Mvmg, Gml [facility] Draw 25[address] [facility] [place], [place] [address] 08/18/2024 7:00 AM EDT Laboratory Lab Mobile Phlebotomy [facility] 25[address] [facility] [place], [place] [address] Mvmg, Gml Mobile Home Draw 25[address] [facility] [place], [place] [address] 08/20/2024 10:15 AM EDT Office Visit Ophthalmology, [facility] 132 [facility] [place] [address] Cody Gonzalez, DO [facility] [address] 08/25/2024 7:00 AM EDT Laboratory Lab Mobile Phlebotomy [facility] 25[address] [facility] [place], [place] [address] Mvmg, Gml Mobile Home Draw 25[address] [facility] [place], [place] [address] 09/01/2024 7:00 AM EDT Laboratory Lab Mobile Phlebotomy [facility] 25[address] [facility] [place], [place] [address] Mvmg, Gml Mobile Home Draw 2520 [facility] [place], [place] [address] 09/08/2024 7:00 AM EDT Laboratory Lab Mobile Phlebotomy [facility] 25[address] [facility] [place], [place] [address] Mvmg, Gml Mobile Home Draw 25[address] [facility] [place] [address] 09/15/2024 7:00 AM EDT Laboratory Lab Mobile Phlebotomy [facility] 25[address] [facility] [place], [place] [address] Mvmg, Gml Mobile Home Draw 25[address] [facility] [place] [address] 09/22/2024 7:00 AM EDT Laboratory Lab Mobile Phlebotomy [facility] 25[address] [facility] [place], [place] [address] Mvmg, Gml Mobile Home Draw 25[address] [facility] [place] [address] 09/29/2024 7:00 AM EDT Laboratory Lab Mobile Phlebotomy [facility] [address] [facility] [place], [place] [address] Mvmg, Gml Mobile Home Draw 2520 [facility] [place] [address] 10/06/2024 7:00 AM EST Laboratory Lab Mobile Phlebotomy [facility] [address] [place], [place] [address] Mvmg, Gml Mobile Home Draw 2520 [facility] [place], [place] [address] 10/12/2024 10:20 AM EST Office Visit Pulmonary Medicine, [facility] 132 [facility] [place] [address] Jordan Stanley MD [address] [place] [address] 10/13/2024 7:00 AM EST Laboratory Lab Mobile Phlebotomy [facility] 25[address] [facility] [place], [place] [address] Mvmg, Gml Mobile Home Draw 2520 [facility] [place], [place] [address] 10/20/2024 7:00 AM EST Laboratory Lab Mobile Phlebotomy [facility] [address] [facility] [place], [place] [address] Mvmg, Gml Mobile Home Draw 25[address] [facility] [place] [address] 10/27/2024 7:00 AM EST Laboratory Lab Mobile Phlebotomy [facility] 25[address] [facility] [place], [place] [address] Mvmg, Gml Mobile Home Draw 2520 [facility] [place] [address] 10/30/2024 10:00 AM EST Office Visit Urology Lynnette Fitzpatrick [address] [place] [address] Frank Peraza MD [address] [place] [address] Scheduled Orders Name Type Priority Associated Diagnoses [...] Additional history exists CKD HGB USE SMARTSET 94153 05/19/202505/19, 05/19/2024, 05/18/2024, Additional history exists CKD PHOS USE SMARTSET 40313 05/19/202505/02, 05/08/2024, 04/07/2024, Additional history exists Diabetic [...] encounter Medical Devices Implanted Type Area Emergency Dispatcher Device Identifier Shelf Expiration Date Model / Serial / Lot Davideon Iol Aspheric Hydrophobic Acrylic Iol Implanted:Qty: 1 on 04/23/2023 by Cody Gonzalez, DO at OR [facility] Lens Left: Eye 11/12/2025 CNA0T0 / [id number] / Viatorr Tips Endoprosthesis 8-10 Mm X 8cm / 2cm Implanted:Qty: 1 on 10/07/2020 by oG Alvarado MD at [facility] Right: Abdomen 03/03/2023 [id number] / / [id number] Description:Viatorr TIPS End oprosthesis 8-10 mm x 8cm / 2cm, Manufactored by [employer] Syr Pf 2ml Embospheres 100-300 - [id number] Implanted:Qty: 1 on 04/18/2021 by Kevin Lim DO at OR [facility] Left: Abdomen [employer] [id number] 11/25/2023 S220GH / / [id number] Lipiodol Injection - [id number] Implanted:Qty: 1 on 03/28/2022 at [facility] [employer] 03/01/2023 21655-09 01-2 / / [id number] Syr Pf 2ml Embospheres 100-300 - [id number] Implanted:Qty: 1 on 03/28/2022 at [facility] [employer] [id number] 08/31/2024 S220GH / / [id number] -[id number] Clareon Iol Aspheric Hydrophobic Acrylic Iol Implanted:Qty: 1 on 04/02/2023 by Cody Gonzalez DO at OR [facility] Right: Eye JAZMIN 11/12/2025 CNA0T0 / [id number] / documented as of this encounter Visit Diagnoses Diagnosis Cirrhosis of liver with ascites, unspecified hepatic cirrhosis type (HCC)- Primary documented in this encounter Advance Directives Documents on File Type Date Recorded 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
--- OUTSIDE RECORDS SUMMARY | 2024-06-13 | External Medical Summary | Summary of Care ---
Author Name Unknown Organization [facility] Address [address] [facility] [address] Phone [phone] Care Team Providers Care County Sheriff Name Role Phone VangieKristen shahid Caryn SANDOVAL Primary Care Provider [phone] Reason for Visit * Reason Onset Date Comments Advice 06/02/2024 Order Request 06/02/2024 Encounter Details Date Type Department Care Team (Late st Contact Info) Description 06/02/2024 Telephone Gastroenterology, [facility] [address] [place] [address] Lamar Tatum CRNP [address] [place] [address] Advice; Order Request Allergies No known active allergiesdocumented as of this encounter (statuses as of 06/02/2024) Medications Medication Sig Dispensed Refills Start Date [...] as of this encounter (statuses as of 06/02/2024) Active Problems Problem Noted Date Diagnosed Date [...] as of this encounter (statuses as of 06/02/2024) Resolved Problems Problem Noted Date Diagnosed Date [...] as of this encounter (statuses as of 06/02/2024) Immunizations Name Administration Dates Next Due COVID-19 mRNA, LNP-s, No Pre serve, 2-Dose Series ([employer]) 03/08/2021,02/15/2021 HepA Inact/HepB Recomb>=18yrs old 12/04/2019,04/2019,05/20/2019 11/19/2019 PPD 06/18/2017, 3,01/09/2012,06/2011 Pneumococcal Conjugate Vacc, 13 Valent (Prevnar) 05/01/2017 Pneumococcal Polysaccharide PPV23 (Pneumovax) 08/28/2022,10/25/2015,07/14/2012 Season Influenza, Quad, PF, Adjuvanted, 65+ Yrs, IM (FLUAD) 10/07/2020(Deferred: Patient Refused - pt says he already had his shot last month at [facility] Handy Lyons and Mckinley Cobian made [...] EDT Patient received a parsion pieces from [facility]. He talked to [facility] yesterday and the request that was sent [...] Description 06/05/2024 11:00 AM EDT Office Visit [facility] [address] [place] [address] Robinson Olson CRNP [address] [place] [address] 06/09/2024 7:00 AM EDT Laboratory Lab Mobile Phlebotomy [facility] [address] [address] Mvmg, Gml Mobile Home Draw [address] [place] [address] 06/11/2024 11:30 AM EDT Appointment Interventional Radiology [facility] [address] 06/16/2024 7:00 AM EDT Laboratory Lab Mobile Phlebotomy [facility] [address] [address] Mvmg, Gml Mobile Home Draw [address] [address] 06/23/2024 7:00 AM EDT Laboratory Lab Mobile Phlebotomy [facility] [address] [address] Mvmg, Gml Mobile Home Draw [address] [address] 06/23/2024 2:00 PM EDT Office Visit Hematology/Oncology [facility] [address] [place] [address] [place] [address] Ayaka Tatum CRNP [address] [place], [place] [address]J[place] [address] 06/30/2024 7:00 AM EDT Laboratory Lab Mobile Phlebotomy [facility] [address] [address] Mvmg, Gml Mobile Home Draw [address] [address] 07/07/2024 7:00 AM EDT Laboratory Lab Mobile Phlebotomy [facility] [address] [address] Mvmg, Gml Mobile Home Draw [address] [address] 07/08/2024 1:00 PM EDT Office Visit Nephrology, [facility] [address], [place] [address] Franki Herbert MD 200 [facility] [place] [address] 07/09/2024 9:40 AM EDT Office Visit Family Practice [facility] [place] [address] Kristen Vences DO [address] [place] [address] 07/14/2024 7:00 AM EDT Laboratory Lab Mobile Phlebotomy [facility] [address] [place] [address] Mvmg, Gml Mobile Home Draw [address] [facility] [place], [place] [address] 07/21/2024 7:00 AM EDT Laboratory Lab Mobile Phlebotomy [facility] [address] [place] [address] Mvmg, Gml Mobile Home Draw [address] [facility] [place], [place] [address] 07/23/2024 9:30 AM EDT Office Visit Cardiology, [facility] [place] [address] Carlee Salazar CRNP 132 [facility] [place] [address] 07/28/2024 7:00 AM EDT Laboratory Lab Mobile Phlebotomy [facility] [address] [place], [place] [address] Mvmg, Gml Mobile Home Draw [address] [facility] [place], [place] [address] 07/28/2024 2:00 PM EDT Office Visit Nephrology, George Blankenship [address] [place] [address] Franki Herbert MD [address], [place] [address] 08/04/2024 7:00 AM EDT Laboratory Lab Mobile Phlebotomy [facility] [address] [place], [place] [address] Mvmg, Gml Mobile Home Draw [address] [facility] [place] [address] 08/11/2024 7:00 AM EDT Laboratory Lab Mobile Phlebotomy [facility] [address] [facility] [place], [place] [address] Mvmg, Gml Mobile Home Draw [address] [facility] [place], [place] [address] 08/18/2024 7:00 AM EDT Laboratory Lab Mobile Phlebotomy [facility] [address] [facility] [place], [place] [address] Mvmg, Gml Mobile Home Draw [address] [facility] [place], [place] [address] 08/20/2024 10:15 AM EDT Office Visit Ophthalmology, [facility] 132 [facility] [place] [address] Cody Gonzalez, DO 21 [facility] [place] [address] 08/25/2024 7:00 AM EDT Laboratory Lab Mobile Phlebotomy [facility] [address] [facility] [place], [place] [address] Mvmg, Gml Mobile Home Draw [address] [facility] [place], [place] [address] 09/01/2024 7:00 AM EDT Laboratory Lab Mobile Phlebotomy [facility] [address] [facility] [place], [place] [address] Mvmg, Gml Mobile Home Draw [address] [facility] [place], [place] [address] 09/08/2024 7:00 AM EDT Laboratory Lab Mobile Phlebotomy [facility] [address] [facility] [place], [place] [address] Mvmg, Gml Mobile Home Draw [address] [facility] [place], [place] [address] 09/15/2024 7:00 AM EDT Laboratory Lab Mobile Phlebotomy [facility] [address] [facility] [place], [place] [address] Mvmg, Gml Mobile Home Draw [address] [place] [address] 09/22/2024 7:00 AM EDT Laboratory Lab Mobile Phlebotomy [facility] [address] [facility] [place] [address] Mvmg, Gml Mobile Home Draw [address] [facility] [place] [address] 09/29/2024 7:00 AM EDT Laboratory Lab Mobile Phlebotomy [facility] [address] [facility] [place] [address] Mvmg, Gml Mobile Home Draw [address] [facility] [place] [address] 10/06/2024 7:00 AM EST Laboratory Lab Mobile Phlebotomy [facility] [address] [facility] [place] [address] Mvmg, Gml Mobile Home Draw [address] [facility] [place] [address] 10/12/2024 10:20 AM EST Office Visit Pulmonary Medicine, [facility] 132 [facility] [place] [address] Jordan Stanley MD [address] [place] [address] 10/13/2024 7:00 AM EST Laboratory Lab Mobile Phlebotomy [facility] [address] [place] [address] Mvmg, Gml Mobile Home Draw [address] [facility] [place] [address] 10/20/2024 7:00 AM EST Laboratory Lab Mobile Phlebotomy [facility] [address] [facility] [place] [address] Mvmg, Gml Mobile Home Draw [address] [facility] [place] [address] 10/27/2024 7:00 AM EST Laboratory Lab Mobile Phlebotomy [facility] [address] [place] [address] Mvmg, Gml Mobile Home Draw [address] [place] [address] 10/30/2024 10:00 AM EST Office Visit Urology Lynnette Fitzpatrick [address] [place] [address] Frank Peraza MD 27 [place] [address] Scheduled Procedures Name Priority Associated Diagnoses Date/Ti [...] Additional history exists CKD HGB USE SMARTSET 72897 05/19/202505/19, 05/19/2024, 05/18/2024, Additional history exists CKD PHOS USE SMARTSET 05159 05/19/202505/02, 05/08/2024, 04/07/2024, Additional history exists Diabetic [...] this encounter Medical Devices Implanted Type Area Conduit Cleaner Device Identifier Shelf Expiration Date Model / Serial / Lot Clareon Iol Aspheric Hydrophobic Acrylic Iol Implanted:Qty: 1 on 04/23/2023 by Cody Gonzalez DO at [facility] Lens Left: Eye 11/12/2025 CNA0T0 / [id number] / Viatorr Tips Endoprosthesis 8-10 Mm X 8cm / 2cm Implanted:Qty: 1 on 10/07/2020 by Go Alvarado MD at [facility] Right: Abdomen 03/03/2023 [id number] / / [id number] Description:Viatorr TIPS End oprosthesis 8-10 mm x 8cm / 2cm, Manufactored by [employer] [facility] Pf 2ml Embospheres 100-300 - [id number] Implanted:Qty: 1 on 04/18/2021 by Kevin Lim DO at OR [facility] Left: Abdomen [email or web address] [id number] 11/25/2023 S220GH / / [id number] Lipiodol Injection - [id number] Implanted:Qty: 1 on 03/28/2022 at [facility] [employer] 03/01/2023 71857-55 01-2 / [id number] Syr Pf 2ml Embospheres 100-300 - [id number] Implanted:Qty: 1 on 03/28/2022 at [facility] [email or web address] [id number] 08/31/2024 S220GH / / [id number] -[id number] Clareon Iol Aspheric Hydrophobic Acrylic Iol Implanted:Qty: 1 on 04/02/2023 by Cody Gonzalez DO at OR 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
--- OUTSIDE RECORDS SUMMARY | 2024-06-13 | External Medical Summary | Summary of Care ---
Author Name Unknown Organization [facility] Address [address] [facility] [address] Phone [phone] Care Team Providers Care Supervisor Wrapping Room Name Role Phone Kristen Vences DO Primary Care Provider [phone] Reason for Visit * Reason Onset Date Comments Hospital Follow-Up 06/01/2024 Encounter Details Date Type Department Care Team (Late st Contact Info) Description 06/01/2024 Telephone General Internal Medicine [facility] [address] [place] [address] Kristen Vences DO [address] [place] [address] Hospital Follow-Up Allergies No known active allergiesdocumented as of this encounter (statuses as of 06/01/2024) Medications Medication Sig Dispensed Refills Start Date [...] as of this encounter (statuses as of 06/01/2024) Active Problems Problem Noted Date Diagnosed Date [...] as of this encounter (statuses as of 06/01/2024) Resolved Problems Problem Noted Date Diagnosed Date [...] as of this encounter (statuses as of 06/01/2024) Immunizations Name Administration Dates Next Due COVID-19 mRNA, LNP-s, No Pre serve, 2-Dose Series ([employer]) 03/08/2021,02/15/2021 HepA Inact/HepB Recomb>=18yrs old 12/04/2019,04/2019,05/20/2019 11/19/2019 PPD 06/18/2017, 3,01/09/2012,06/2011 Pneumococcal Conjugate Vacc, 13 Valent (Prevnar) 05/01/2017 Pneumococcal Polysaccharide PPV23 (Pneumovax) 08/28/2022,10/25/2015,07/14/2012 Season Influenza, Quad, PF, Adjuvanted, 65+ Yrs, IM (FLUAD) 10/07/2020(Deferred: Patient Refused - pt says he already had his shot last month at [facility] Handy Lyons and Mckinley Cobian [...] encounter Miscellaneous Notes * Telephone Encounter - Blank Esqueda RN - 06/01/2024 3:42 PM EDT Labs ordered. Please update pt when called for schedule. * Telephone Encounter - Mukul Delgado RN - 06/01/2024 2:13 PM EDT Patient discharged to home 05/31/24 from [facility]. Nephrology consulted for LUCRETIA on CKD, Dr Bravo recommends: Follows with Dr. Herbert in clinic and will need f/u w/ him after d/c, recommend bmp every 2 wks at hospital d/c x 4. Please assist with these recommendations. Thank you documented in this encounter Plan of Treatment Upcoming Encounters Date Type Department Care Team (Late st Contact Info) Description 06/02/2024 7:00 AM EDT Laboratory Lab [facility] [address] [place] [address] [facility] [address] [place] [address] 06/05/2024 11:00 AM EDT Office Visit Family [facility] [address] [place] [address] Robinson Olson CRNP [address] [place] [address] 06/09/2024 7:00 AM EDT Laboratory [facility] [address] [place] [address] [facility] [address] [place], [place] [address] 06/11/2024 11:30 AM EDT Appointment Interventional Radiology [facility] [place] 1st Floor [address] [place] [address] 06/16/2024 7:00 AM EDT Laboratory Lab [facility] [address] [place] [address] [facility], [facility] [address] [employer] [place] [address] 06/23/2024 7:00 AM EDT Laboratory Lab [facility] Ph[facility]bot[facility] [address] [employer] [address] [place] [address] [facility], [facility] Draw [address] [employer] [place], [place] [address] 06/23/2024 2:00 PM EDT Office [facility] [place] 200 [facility] [place], [place] [phone] Ayaka Tatum CRNP 400 [facility] [address] 06/30/2024 7:00 AM EDT Laboratory Lab [facility] Phlebot[facility] [address] [place] [address] M[facility], [facility] [address] [place] [address] 07/07/2024 7:00 AM EDT Laboratory Lab [facility] Ph[facility] [address] [place] [address] [facility], G[facility] Draw [address] [place], [place] [address] 07/09/2024 9:40 AM EDT Office Visit Family Practice [facility] [address] [facility] [place] [address] Kristen Vences DO [address] [place], [place] [address] 07/14/2024 7:00 AM EDT Laboratory Lab [facility] Phlebot[facility] [address] [place] [address] M[facility], [facility] [address] [place] [address] 07/21/2024 7:00 AM EDT Laboratory Lab [facility] Phlebot[facility] [address] [place] [address] Mv[facility], Gml [facility] Draw [address] [employer] [address] [place] [address] 07/23/2024 9:30 AM EDT Office Visit Cardiology, [facility] [address] [facility] [place] [address] Carlee Salazar CRNP 132 [facility] [place] [address] 07/28/2024 7:00 AM EDT Laboratory Lab Mobile Phlebotomy [facility] [address] [place] [address] Mv[facility], G[facility] Draw [address] [employer] [facility] [place] [address] 07/28/2024 2:00 PM EDT Office Visit Nephrology, [facility] [address] [place], [place] [address] Franki Herbert MD [address] [place] [place] [address] 08/04/2024 7:00 AM EDT Laboratory Lab [facility] Phlebot[facility] [address] [place] [address] Mvmg, G[facility] Draw [address] [place] [address] 08/11/2024 7:00 AM EDT Laboratory Lab Mobile Phlebotomy [facility] [address] [facility] [place], [place] [address] Mvmg, Gml [facility] Draw [address] [facility] [place], [place] [address] 08/18/2024 7:00 AM EDT Laboratory Lab Mobile Phlebotomy [facility] [address] [facility] [place], [place] [address] Mvmg, Gml [facility] Draw [address] [facility] [place], [place] [address] 08/20/2024 10:15 AM EDT Office Visit Ophthalmology, [facility] 132 [facility] [place] [address] Cody Gonzalez, DO 21 [facility] [place] [address] 08/25/2024 7:00 AM EDT Laboratory Lab Mobile Phlebotomy [facility] [address] [facility] [place], [place] [address] Mvmg, Gml [facility] Draw [address] [facility] [place], [place] [address] 09/01/2024 7:00 AM EDT Laboratory Lab Mobile Phlebotomy [facility] [address] [facility] [place], [place] [address] Mvmg, Gml [facility] Draw [address] [facility] [place], [place] [address] 09/08/2024 7:00 AM EDT Laboratory Lab Mobile Phlebotomy [facility] [address] [facility] [place], [place] [address] Mvmg, Gml [facility] Draw [address] [facility] [place], [place] [address] 09/15/2024 7:00 AM EDT Laboratory Lab Mobile Phlebotomy [facility] [address] [facility] [place], [place] [address] Mvmg, Gml [facility] Draw [address] [place] [address] 09/22/2024 7:00 AM EDT Laboratory Lab [facility] Ph[facility] [address] [place] [address] Mvmg, Gml [facility] Draw [address] [place] [address] 09/29/2024 7:00 AM EDT Laboratory Lab [facility] Phlebot[facility] [address] [place] [address] Mv[facility], G[facility] Draw [address] [place] [address] 10/06/2024 7:00 AM EST Laboratory Lab [facility] Phle[facility] [address] [place] [address] Mvmg, Gml [facility] Draw [address] [place] [address] 10/12/2024 10:20 AM EST Office Visit Pulmonary Medicine, [facility] 132 [facility] [place] [address] Jordan Stanley MD [address] [place] [address] 10/13/2024 7:00 AM EST Laboratory Lab [facility] Phle[facility] [address] [place] [address] Mv[facility], G[facility] Draw [address] [place] [address] 10/20/2024 7:00 AM EST Laboratory Lab [facility] Phlebot[facility] [address] [place] [address] Mvmg, Gml [facility] Draw [address] [place] [address] 10/27/2024 7:00 AM EST Laboratory Lab [facility] [address] [place] [address] Mv[facility], Gml [facility] Draw [address] [place] [address] 10/30/2024 10:00 AM EST Office Visit Urology Lynnette Fitzpatrick [address] [place] [address] Frank Peraza MD 27 [place] [address] Scheduled Orders Name Type Priority Associated Diagnoses Orde r Schedule BASIC METABOLIC PANEL Lab Routine Chronic kidney disease, stage 3a (HCC) Every 2 Weeks for 4 Occurrences starting 06/01/2024 until 06/01/2025 Scheduled Procedures Name Priority Associated Diagnoses Date/Ti [...] Additional history exists CKD HGB USE SMARTSET 66180 05/19/202505/19, 05/19/2024, 05/18/2024, Additional history exists CKD PHOS USE SMARTSET 27584 05/19/202505/02, 05/08/2024, 04/07/2024, Additional history exists Diabetic [...] this encounter Medical Devices Implanted Type Area Crown Assembly Machine Set Up Mechanic Device Identifier Shelf Expiration Date Model / Serial / Lot Clareon Iol Aspheric Hydrophobic Acrylic Iol Implanted:Qty: 1 on 04/23/2023 by Cody Gonzalez DO at OR [facility] Lens Left: Eye 11/12/2025 [id number] / [id number] / Viatorr Tips Endoprosthesis 8-10 Mm X 8cm / 2cm Implanted:Qty: 1 on 10/07/2020 by Go Alvarado MD at [facility] Right: Abdomen 03/03/2023 [id number] / / [id number] Description:Viatorr TIPS End oprosthesis 8-10 mm x 8cm / 2cm, Manufactored by [employer] Syr Pf 2ml Embospheres 100-300 - [id number] Implanted:Qty: 1 on 04/18/2021 by Kevin Lim DO at OR [facility] Left: Abdomen [employer] [id number] 11/25/2023 [id number] / / [id number] Lipiodol Injection - [id number] Implanted:Qty: 1 on 03/28/2022 at [facility] [employer] 03/01/2023 67348-23 01-2 / / [id number] Syr Pf 2ml Embospheres 100-300 - [id number] Implanted:Qty: 1 on 03/28/2022 at [facility] [employer] [id number] 08/31/2024 S220GH / / [id number] -[id number] Clareon Iol Aspheric Hydrophobic Acrylic Iol Implanted:Qty: 1 on 04/02/2023 by Cody Gonzalez DO at OR [facility] Right: Eye JAZMIN 11/12/2025 [id number] / [id number] / documented as of this encounter Visit Diagnoses Diagnosis Chronic kidney disease, stage 3a (HCC)- Primary documented in this encounter Advance Directives Documents on File Type Date Recorded Patient Physiotherapist'S Assistant Expl anation Advance Directives and Living Will 12/11/2022 ADVANCE DIRECTIVE / LIVING WILL LIVING WILL Power of Archives Director 12/11/2022 POWER OF A TTORNEY * Full [...] Discussed due to patient's condition Care Teams Supervisor Wrapping Room Relationship Specialty Start Date End Date Kristen Vences DO [address] [place] [address] [address] PCP - General Family Medicine 05/19/24 documented as of this encounter
--- OUTSIDE RECORDS SUMMARY | 2024-06-13 | External Medical Summary | Summary of Care ---
Author Name Unknown Organization [facility] Address [address] [facility] [place] [address] Phone [phone] Care Team Providers Care Elevator Mechanic Name Role Phone Kristen Vences Primary Care Provider [phone] Reason for Visit * Reason Onset Date Comments Encounter Created in Error 06/02/2024 Encounter Details Date Type Department Care Team (Late st Contact Info) Description 06/02/2024 Telephone Gastroenterology, [facility] [address] [place] [address] Lamar Tatum CRNP [address] [place] [address] Encounter Created in Error Allergies No known active allergiesdocumented as of [...] mRNA, LNP-s, No Pre serve, 2-Dose Series ([employer])) 03/08/2021,02/15/2021 HepA Inact/HepB Recomb>=18yrs old 12/04/2019,04/2019,05/20/2019 11/19/2019 PPD 06/18/2017, 3,01/09/2012,06/2011 Pneumococcal Conjugate Vacc, 13 Valent (Prevnar) 05/01/2017 Pneumococcal Polysaccharide PPV23 (Pneumovax) 08/28/2022,10/25/2015,07/14/2012 Season Influenza, Quad, PF, Adjuvanted, 65+ Yrs, IM (FLUAD) 10/07/2020(Deferred: Patient Refused - pt says he already had his shot last month at [facility] Handy Lyons and Mckinley Cobian made aware) [...] 11:00 AM EDT Office Visit Family Practice [facility] 132 [facility] [place] [address] Robinson Olson CRNP [address] [place] [address] 06/09/2024 7:00 AM EDT Laboratory Lab Mobile Phlebot[facility] [address] [place] [address] [facility], Gml Mobile Home Draw [facility] [place] [address] 06/11/2024 11:30 AM EDT Appointment Interventional Radiology [facility] [place], [place] 1st Floor [address] [place] [address] 06/16/2024 7:00 AM EDT Laboratory Lab [facility] Ph[facility]bot[facility] [address] [place] [address] M[facility], G[facility] Draw [address] [place] [address] 06/23/2024 7:00 AM EDT Laboratory Lab Mobile Phlebot[facility] [address] [place] [address] Mv[facility], Gml [facility] Draw [address] [place] [address] 06/23/2024 2:00 PM EDT Office Visit Hematology/Oncology [facility] [address], [place] [phone] Ayaka Tatum CRNP [address] [place] [address] 06/30/2024 7:00 AM EDT Laboratory Lab [facility] [address] [place] [address] [place] [address] Mv[facility], [facility] Draw [address] [place] [address] [address] 07/07/2024 7:00 AM EDT Laboratory Lab [facility] [address] [place] [address] Mvmg, Gml [facility] Draw [address] [address] 07/08/2024 1:00 PM EDT Office Visit Nephrology, [facility] [address], [place] [address] Franki Herbert MD [address], [place] [address] 07/09/2024 9:40 AM EDT Office Visit Family Practice [facility] 132 [facility] [place] [address] Kristen Vences DO [address] [place] [address] 07/14/2024 7:00 AM EDT Laboratory Lab [facility] [address] [place] [address] [address] Mv[facility], Gml [facility] Draw [address] [place] [address] 07/21/2024 7:00 AM EDT Laboratory Lab Mobile Ph[facility]bot[facility] [address] [address] Mvmg, Gml Mobile Home Draw [address] [place] [address] 07/23/2024 9:30 AM EDT Office Visit Cardiology, [facility] 132 [facility] [address] Carlee Salazar CRNP 132 [facility] [place], [place] [address] 07/28/2024 7:00 AM EDT Laboratory Lab Mobile Ph[facility]bot[facility] 2520 [facility] [place], [place] [address] Mvmg, Gml Mobile Home Draw 25[address] [facility] [place], [place] [address] 07/28/2024 2:00 PM EDT Office Visit Nephrology, [facility] 200 [facility] [place], [place] [address] Franki Herbert MD 200 [facility] [place], [place] [address] 08/04/2024 7:00 AM EDT Laboratory Lab Mobile Phlebotomy [facility] [address] [facility] [place] [address] Mvmg, Gml Mobile Home Draw 25[address] [facility] [place], [place] [address] 08/11/2024 7:00 AM EDT Laboratory Lab [facility] Phlebot[facility] 25[address] [facility] [place], [place] [address] Mvmg, Gml Mobile Home Draw 25[address] [facility] [place] [address] 08/18/2024 7:00 AM EDT Laboratory Lab Mobile Phlebot[facility] [address] [facility] [place] [address] Mvmg, Gml Mobile Home Draw [address] [facility] [place] [address] 08/20/2024 10:15 AM EDT Office Visit Ophthalmology, [facility] [place] [address] Cody Gonzalez, DO [address] [place] [address] 08/25/2024 7:00 AM EDT Laboratory Lab Mobile Phlebotomy [facility] [address] [employer] [place], [place] [address] Mvmg, Gml Mobile Home Draw 2520 [facility] [place], [place] [address] 09/01/2024 7:00 AM EDT Laboratory Lab Mobile Phlebotomy [facility] [address] [employer] [place], [place] [address] Mvmg, Gml Mobile Home Draw 25[address] [facility] [place], [place] [address] 09/08/2024 7:00 AM EDT Laboratory Lab Mobile Phlebotomy [facility] [address] [employer] [place], [place] [address] Mvmg, Gml Mobile Home Draw [address] [place] [employer] [place], [place] [address] 09/15/2024 7:00 AM EDT Laboratory Lab Mobile Phlebotomy [facility] 25[address] [facility] [place], [place] [address] Mvmg, Gml Mobile Home Draw 25[address] [facility] [place], [place] [address] 09/22/2024 7:00 AM EDT Laboratory Lab Mobile Phlebotomy [facility] 25[address] [facility] [place], [place] [address] Mvmg, Gml Mobile Home Draw [address] [place] [employer] [place], [place] [address] 09/29/2024 7:00 AM EDT Laboratory Lab Mobile Phlebotomy [facility] 25[address] [facility] [place], [place] [address] Mvmg, Gml Mobile Home Draw 25[address] [facility] [place], [place] [address] 10/06/2024 7:00 AM EST Laboratory Lab Mobile Phlebotomy [facility] 25[address] [facility] [place], [place] [address] Mvmg, Gml Mobile Home Draw [address] [place] [address] 10/12/2024 10:20 AM EST Office Visit Pulmonary Medicine, [facility] [address] [place] [address] Jordan Stanley MD [address] [place] [address] 10/13/2024 7:00 AM EST Laboratory Lab Mobile Phlebotomy [facility] [address] [place] [address] Mvmg, Gml Mobile Home Draw [address] [employer] [place], [place] [address] 10/20/2024 7:00 AM EST Laboratory Lab Mobile Phlebotomy [facility] [address] [employer] [place], [place] [address] Mvmg, Gml Mobile Home Draw [address] [employer] [place], [place] [address] 10/27/2024 7:00 AM EST Laboratory Lab Mobile Phlebotomy [facility] [address] [place] [address] Mvmg, Gml Mobile Home Draw [address] [place] [address] 10/30/2024 10:00 AM EST Office Visit Urology Lynnette Fitzpatrick [address] [place] [address] Frank Peraza MD 27 [place] [address] Scheduled Procedures Name Priority Associated Diagnoses Date/Ti [...] Additional history exists CKD HGB USE SMARTSET 79232 05/19/202505/19, 05/19/2024, 05/18/2024, Additional history exists CKD PHOS USE SMARTSET 50982 05/19/202505/02, 05/08/2024, 04/07/2024, Additional history exists Diabetic [...] this encounter Medical Devices Implanted Type Area Exhibits Coordinator Device Identifier Shelf Expiration Date Model / Serial / Lot Clareon Iol Aspheric Hydrophobic Acrylic Iol Implanted:Qty: 1 on 04/23/2023 by Cody Gonzalez DO at OR [facility] Lens Left: Eye 11/12/2025 CNA0T0 / [id number] / Viatorr Tips Endoprosthesis 8-10 Mm X 8cm / 2cm Implanted:Qty: 1 on 10/07/2020 by Go Alvarado MD at [facility] Right: Abdomen 03/03/2023 [id number] / / [id number] Description:Viatorr TIPS End oprosthesis 8-10 mm x 8cm / 2cm, Manufactored by [employer] Syr Pf 2ml Embospheres 100-300 - [id number] Implanted:Qty: 1 on 04/18/2021 by Kevin Lim DO at OR [facility] Left: Abdomen [employer] [id number] 11/25/2023 S220GH / / [id number] Lipiodol Injection - [id number] Implanted:Qty: 1 on 03/28/2022 at [facility] [employer] 03/01/2023 40701-44 01-2 / / [id number] Syr Pf 2ml Embospheres 100-300 - [id number] Implanted:Qty: 1 on 03/28/2022 at [facility] [employer] [id number] 08/31/2024 S220GH / / [id number] -[id number] Clareon Iol Aspheric Hydrophobic Acrylic Iol Implanted:Qty: 1 on 04/02/2023 by Cody Gonzalez DO at OR [facility] Right: Eye JAZMIN 11/12/2025 CNA0T0 / [id number] / documented as of this encounter Advance Directives Documents on File Type Date Recorded Patient Hat Cleaner Expl anation Advance Directives and Living Will 12/11/2022 ADVANCE DIRECTIVE / LIVING WILL LIVING WILL Power of Funeral Home Attendant 12/11/2022 POWER OF A TTORNEY * [...] Discussed due to patient's condition Care Teams Elevator Mechanic Relationship Specialty Start Date End Date Kristen Vences DO [address] [place] [address] PCP - General Family Medicine 05/19/24 documented as of this encounter
--- OUTSIDE RECORDS SUMMARY | 2024-06-13 | External Medical Summary | Summary of Care ---
Author Name Unknown Organization [facility] Address [address] [facility] [address] Phone [phone] Care Team Providers Care Inspector Rough Castings Name Role Phone VangieKristen shahid Caryn SANDOVAL Primary Care Provider [phone] Reason for Referral * Precert (Within 10 days (routine)) - Authorized Specialty Diagnoses / Procedures Referred By Contac t Referred To Contact Radiology Diagnoses Cirrhosis of liver with ascites, unspecified hepatic cirrhosis type (HCC) Procedures IR PARACENTESIS Angie Barbosa CRNP [address] [place] [address] Referral ID Status Reason Start Date Expiration Date V isits Requested Visits Authorized [id number] Authorized 06/03/2024 52 52 Reason for Visit * Reason Onset Date Comments Advice 06/02/2024 Order Request 06/02/2024 Encounter Details Date Type Department Care Team (Late st Contact Info) Description 06/02/2024 Telephone [facility] [address] [place] [address] Angie Barbosa CRNP [address] [place] [address] Advice; Order Request Allergies No known active [...] mRNA, LNP-s, No Pre serve, 2-Dose Series ([employer]) 03/08/2021,02/15/2021 HepA Inact/HepB Recomb>=18yrs old 12/04/2019,04/2019,05/20/2019 11/19/2019 [...] EDT Patient received a parsion pieces from [facility]. He talked to [facility] yesterday and the request that was [...] Description 06/05/2024 11:00 AM EDT Office Visit [facility] 132 [facility] [place] [address] Robinson Olson CRNP [address] [place] [address] 06/09/2024 7:00 AM EDT Laboratory Lab Mobile Phlebotomy [facility] [address] [employer] [address] [place] [address] Mvmg, [facility] [address] [place] [address] 06/11/2024 11:30 AM EDT Appointment Interventional Radiology [facility] 1st Floor [address] [place] [address] 06/16/2024 7:00 AM EDT Laboratory Lab Mobile Phlebotomy [facility] [address] [employer] [place] [place] [address] Mvmg, [facility] [address] [place] [address] 06/23/2024 7:00 AM EDT Laboratory Lab Mobile Phlebotomy [facility] [address] [place] [address] Mvmg, l Mobile Home Draw [address] [place] [address] 06/23/2024 2:00 PM EDT Office Visit Hematology/Oncology [facility] [address] [place] [id number] Ayaka Barbosa CRNP [address] [place] [address] 06/30/2024 7:00 AM EDT Laboratory Lab Mobile Phlebotomy [facility] [address] [place] [address] Mvmg, G[facility] Draw [address] [address] 07/07/2024 7:00 AM EDT Laboratory Lab Mobile Phlebotomy [facility] [address] [address] Mvmg, Gml [facility] Draw [address] [address] 07/08/2024 1:00 PM EDT Office Visit Nephrology, [facility] [address] [place], [place] [address] Franki Herbert MD [address] [employer], [place] [address] 07/09/2024 9:40 AM EDT [facility] [place] [address] Kristen Vences DO [address] [place] [address] 07/14/2024 7:00 AM EDT Laboratory Lab Mobile Phlebotomy [facility] [address] [address] Mvmg, Gml [facility] Draw [address] [address] 07/21/2024 7:00 AM EDT Laboratory Lab Mobile Phlebotomy [facility] [address] [address] Mvmg, Gml Mobile Home Draw [address] [employer] [place], [place] [address] 07/23/2024 9:30 AM EDT Office Visit [facility] 132 [facility] [place] [address] Carlee Salazar CRNP 132 [facility] [place] [address] 07/28/2024 7:00 AM EDT Laboratory Lab Mobile Phlebotomy [facility] [address] [place] [address] Mvmg, Gml [facility] Draw [address] [place] [address] 07/28/2024 2:00 PM EDT Office Visit Nephrology, [facility] [address] [place] [address] Franki Herbert MD [address] [place], [place] [address] 08/04/2024 7:00 AM EDT Laboratory Lab Mobile Phlebotomy [facility] [address] [address] Mvmg, Gml [facility] Draw [address] [place], [place] [address] 08/11/2024 7:00 AM EDT Laboratory Lab Mobile Phlebotomy [facility] [address] [place] [address] Mvmg, Gml Mobile Home Draw [address] [employer], [place] [address] 08/18/2024 7:00 AM EDT Laboratory Lab Mobile Phlebotomy [facility] [address] [address] Mvmg, Gml [facility] Draw [address] [address] 08/20/2024 10:15 AM EDT Office Visit [facility]hthal[facility] 132 [facility] [place] [address] Cody Gonzalez, DO [address] [place] [address] 08/25/2024 7:00 AM EDT Laboratory Lab Mobile Phlebotomy [facility] [address] [facility] [place], [place] [address] Mvmg, Gml Mobile Home Draw 2520 [facility], [place] [address] 09/01/2024 7:00 AM EDT Laboratory Lab Mobile Phlebotomy M[facility] 25[address] [facility], [place] [address] Mvmg, Gml Mobile Home Draw 2520 [facility], [place] [address] 09/08/2024 7:00 AM EDT Laboratory Lab Mobile Phlebotomy [facility] [address] [facility] [place], [place] [address] Mvmg, Gml Mobile Home Draw [address] [employer] [place], [place] [address] 09/15/2024 7:00 AM EDT Laboratory Lab Mobile Phlebotomy [facility] [address] [facility] [place], [place] [address] Mvmg, Gml Mobile Home Draw 25[address] [facility] [place], [place] [address] 09/22/2024 7:00 AM EDT Laboratory Lab Mobile Phlebotomy [facility] [address] [facility] [place], [place] [address] Mvmg, Gml Mobile Home Draw 2520 [facility], [place] [address] 09/29/2024 7:00 AM EDT Laboratory Lab Mobile Phlebotomy [facility] [address] [facility] [place], [place] [address] Mvmg, Gml Mobile Home Draw 25[address] [facility] [place], [place] [address] 10/06/2024 7:00 AM EST Laboratory Lab Mobile Phlebotomy [facility] [address] [facility] [place], [place] [address] Mvmg, Gml Mobile Home Draw [address] [place] [address] 10/12/2024 10:20 AM EST Office Visit Pul[facility] [address] [place] [address] Jordan Stanley MD [address] [place] [address] [address] 10/13/2024 7:00 AM EST Laboratory Lab Mobile Phlebotomy [facility] [address] [place] [address] Mvmg, Gml Mobile Home Draw [address] [place] [address] 10/20/2024 7:00 AM EST Laboratory Lab Mobile Phlebotomy [facility] [address] [place], [place] [address] Mvmg, Gml Mobile Home Draw [address] [place] [address] 10/27/2024 7:00 AM EST Laboratory Lab Mobile Phlebotomy [facility] [address] [place] [address] Mvmg, Gml Mobile Home Draw [address] [place] [address] 10/30/2024 10:00 AM EST Office Visit Urology Lynnette Fitzpatrick [address] [facility] [address] [place] [address] Frank Peraza MD [address] [place] [address] Scheduled Orders Name Type Priority Associated Diagnoses [...] Health Maintenance Due Date Last Done Comments Colgwen 1995 Fecal Occult Blood Test 05/08/2015 05/08/2014 [...] Additional history exists CKD HGB USE SMARTSET 38855 05/19/202505/19, 05/19/2024, 05/18/2024, Additional history exists CKD PHOS USE SMARTSET 06469 05/19/202505/02, 05/08/2024, 04/07/2024, Additional history exists Diabetic [...] this encounter Medical Devices Implanted Type Area Block Cableman Device Identifier Shelf Expiration Date Model / Serial / Lot Clareon Iol Aspheric Hydrophobic Acrylic Iol Implanted:Qty: 1 on 04/23/2023 by Cody Gonzalez DO at OR [facility] Lens Left: Eye 11/12/2025 CNA0T0 / [id number] / Viatorr Tips Endoprosthesis 8-10 Mm X 8cm / 2cm Implanted:Qty: 1 on 10/07/2020 by Go Alvarado MD at [facility] Right: Abdomen 03/03/2023 [id number] / / [id number] Description:Viatorr TIPS End oprosthesis 8-10 mm x 8cm / 2cm, Manufactored by [employer] Syr Pf 2ml Embospheres 100-300 - [id number] Implanted:Qty: 1 on 04/18/2021 by Kevin Lim DO at OR [facility] Left: Abdomen [employer] [id number] 11/25/2023 S220GH / / [id number] Lipiodol Injection - [id number] Implanted:Qty: 1 on 03/28/2022 at [facility] [employer] 03/01/2023 [id number] -[id number] / / [id number] Syr Pf 2ml [facility] 100-300 - [id number] Implanted:Qty: 1 on 03/28/2022 at [facility] [employer] [id number] 08/31/2024 S220GH / / [id number] -5 Clareon Iol Aspheric Hydrophobic Acrylic Iol Implanted:Qty: 1 on 04/02/2023 by Cody Gonzalez DO at OR [facility] Right: Eye JAZMIN 11/12/2025 CNA0T0 / [id number] / documented as of this encounter Visit Diagnoses Diagnosis Cirrhosis of liver with ascites, unspecified hepatic cirrhosis type (HCC)- Primary documented in this encounter Advance Directives Documents on File Type Date Recorded Patient Relief Cook Expl anation Advance Directives and Living Will 12/11/2022 ADVANCE DIRECTIVE / LIVING WILL LIVING WILL Power of Clinical Training Coordinator 12/11/2022 POWER OF A TTORNEY * Full [...] Discussed due to patient's condition Care Teams Inspector Rough Castings Relationship Specialty Start Date End Date Kristen Vences DO [address] [place] [address] PCP - General Family Medicine 05/19/24 documented as of this encounter
--- OUTSIDE RECORDS SUMMARY | 2024-06-13 00:01 | External Medical Summary | Summary of Care ---
Author Name Unknown Organization [facility] Address [address] [place] [address] Phone [phone] Care Team Providers Care Division Controller Name Role Phone Francisco Cisse MD Primary Care Provider + Reason for Referral * Evaluate & Treat - Unlimited Visits (Within 10 days (routine)) - Authorized Specialty Diagnoses / Procedures Referred By Contac t Referred To Contact Pulmonary Diseases / Pulmonary Diagnoses Restrictive lung disease Radiation cystitis Francisco Cisse MD [address] [place] [facility] [place] [address] Referral ID Status Reason Start Date Expiration Date Visits Requested Visits Authorized [id number] Authorized Specialty Services Required 02/21/2024 999 999 Question Answer Referral Priority Within 10 days (routine) Where should this appointment be scheduled? [facility] Reason for Referral? 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 Therapy is approximately 60 treatments Saturday-Saturday pending insurance and pt's tolerance. Each treatment is a little over 2 hours that the pt is in the chamber. Noted while reviewing their [place] ED records that the pt has a hx of restrictive pulmonary lung disease. This is another reason why they want to get the pulmonary clearance. Reason for Visit * Reason Onset Date Comments Advice 02/20/2024 Order Request 02/20/2024 Encounter Details Date Type Department Care Team (Late st Contact Info) Description 02/20/2024 Telephone General Internal Medicine [facility] [place] 200 [facility] [place] [address] Francisco Cisse MD 200 [facility] [place] [address] Advice; Order Request Allergies No known active allergiesdocumented as of this encounter (statuses as of 2024) Medications Medication Sig Dispensed Refills Start Date [...] as of this encounter (statuses as of 2024) Active Problems Problem Noted Date Diagnosed Date [...] as of this encounter (statuses as of 2024) Resolved Problems Problem Noted Date Diagnosed Date [...] as of this encounter (statuses as of 2024) Immunizations Name Administration Dates Next Due COVID-19 mRNA, LNP-s, No Pre serve, 2-Dose Series ([employer]) 03/08/2021,02/15/2021 HepA Inact/HepB Recomb>=18yrs old 12/04/2019,04/2019,05/20/2019 [...] Telephone Encounter - Naima Zimmer LPN - 02/21/2024 9:20 AM EDT Priscilla from [facility] is returning phone call and was made aware of message from PCP. States that they will be using hyperbaric oxygen treatment for radiation cystitis with hematuria tohelp stop the pt's bleeding. Therapy is approximately 60 treatments Saturday-Saturday pending insurance and pt's tolerance. Each treatment is a little over 2 hours that the pt is in the chamber. Noted while reviewing their [place] ED records that the pt has a hx of restrictive pulmonary lung disease. This is another reason why they want to get the pulmonary clearance. Referral pended. Please advise. * Telephone Encounter - Isis Barber OSA - 02/21/2024 9:18 AM EDT Reason for patient's call: Provider message Caller was transferred to Nurse Mcnamara at the nurse line. * Telephone Encounter - Francisco Cisse MD - 02/21/2024 8:31 AM EDT What are they using this for? How long is therapy going to be? I can place referral, but this should be known prior to referral. * Telephone Encounter - Kacie Thomas OSA - 02/20/2024 2:32 PM EDT Celine called states that patient needs a referral to pulmonology for clearance for hyperbaric treatment. Celine asking for this referral and scheduling. documented in this encounter Plan of Treatment Upcoming Encounters Date Type Department Care Team (Late st Contact Info) Description 05/26/2024 7:05 AM EDT Laboratory Lab Mobile Phlebotomy MV [address] [place] [address] Mvmg, Gml Mobile Home Draw [address] [place] [address] 06/02/2024 7:00 AM EDT Laboratory Lab Mobile Phlebotomy M[facility] [address] [place] [address] Mvmg, Gml Mobile Home Draw [address] [place] [address] 06/09/2024 7:00 AM EDT Laboratory Lab Mobile Phlebotomy M[facility] [address] [place] [address] Mvmg, Gml Mobile Home Draw 2520 [facility] [place] [address] 06/16/2024 7:00 AM EDT Laboratory Lab Mobile Phlebotomy M[facility] [address] [place] [address] Mvmg, Gml Mobile Home Draw [address] [place] [address] 06/23/2024 7:00 AM EDT Laboratory Lab Mobile Phlebotomy M[facility] [address] [place] [address] Mvmg, Gml Mobile Home Draw [address] [place] [address] 06/23/2024 2:00 PM EDT Office Visit Hematology/Oncology [facility] [place] 200 [facility] [place], [place] [address] Ayaka Tatum CRNP [address] [place], [place] [address]J[place] [address] 06/30/2024 7:00 AM EDT Laboratory Lab Mobile Phlebotomy [facility] [address] [place] [address] Mvmg, Gml Mobile Home Draw [address] [employer] [place], [place] [address] 07/07/2024 7:00 AM EDT Laboratory Lab Mobile Phlebotomy M[facility] [address] [place] [address] Mvmg, Gml Mobile Home Draw [address] [place], [place] [address] 07/09/2024 9:40 AM EDT Office Visit Family Practice [facility] [address] [facility] [place] [address] Kristen Vences DO [facility] [place] [address] 07/14/2024 7:00 AM EDT Laboratory Lab Mobile Phlebotomy M[facility] [address] [employer] [place] [address] Mvmg, Gml Mobile Home Draw [address] [place] [address] 07/21/2024 7:00 AM EDT Laboratory Lab Mobile Phlebotomy M[facility] [address] [place] [address] Mvmg, Gml Mobile Home Draw [address] [place], [place] [address] 07/23/2024 9:30 AM EDT Office Visit Cardiology, [facility] [place] [address] Carlee Salazar CRNP 132 [facility] [place] [address] 07/28/2024 7:00 AM EDT Laboratory Lab Mobile Phlebotomy M[facility] [address] [place] [address] Mvmg, Gml Mobile Home Draw 2520 [facility] [place], [place] [address] 07/28/2024 2:00 PM EDT Office Visit Nephrology, [facility] [address] [place], [place] [address] Franki Herbert MD [address] [place], [place] [address] 08/04/2024 7:00 AM EDT Laboratory Lab Mobile Phlebotomy [facility] [address] [place] [address] [address] Mvmg, Gml Mobile Home Draw 2520 [facility] [place], [place] [address] 08/11/2024 7:00 AM EDT Laboratory Lab Mobile Phlebotomy M[facility] 25[address] [facility] [place], [place] [address] Mvmg, Gml Mobile Home Draw 2520 [facility] [place], [place] [address] 08/18/2024 7:00 AM EDT Laboratory Lab Mobile Phlebotomy M[facility] 25[address] [facility] [place], [place] [address] Mvmg, Gml Mobile Home Draw 2520 [facility], [place] [address] 08/20/2024 10:15 AM EDT Office Visit Ophthalmology, [facility] 132 [facility] [place] [address] Cody Gonzalez, DO 21 [facility] [place] [address] 08/25/2024 7:00 AM EDT Laboratory Lab Mobile Phlebotomy M[facility] 25[address] [facility] [place], [place] [address] Mvmg, Gml Mobile Home Draw 2520 [facility] [place], [place] [address] 09/01/2024 7:00 AM EDT Laboratory Lab Mobile Phlebotomy M[facility]G 25[address] [facility] [place], [place] [address] Mvmg, Gml Mobile Home Draw 2520 [facility] [place], [place] [address] 09/08/2024 7:00 AM EDT Laboratory Lab Mobile Phlebotomy M[facility]G 25[address] [facility] [place], [place] [address] Mvmg, Gml Mobile Home Draw 2520 [facility] [place], [place] [address] 09/15/2024 7:00 AM EDT Laboratory Lab Mobile Phlebotomy M[facility] 2520 [facility] [place], [place] [address] Mvmg, Gml Mobile Home Draw [address] [place] [address] 09/22/2024 7:00 AM EDT Laboratory Lab Mobile Phlebotomy M[facility] [address] [place] [address] Mvmg, Gml Mobile Home Draw [address] [place] [address] 09/29/2024 7:00 AM EDT Laboratory Lab Mobile Phlebotomy M[facility] [address] [facility] [place] [address] Mvmg, Gml Mobile Home Draw 2520 [facility] [place] [address] 10/06/2024 7:00 AM EST Laboratory Lab Mobile Phlebotomy M[facility] [address] [place] [address] Mvmg, Gml Mobile Home Draw 2520 [facility] [place] [address] 10/12/2024 10:20 AM EST Office Visit Pulmonary Medicine, [facility] 132 [facility] [place] [address] Jordan Stanley MD [address] [place] [address] [address] 10/13/2024 7:00 AM EST Laboratory Lab Mobile Phlebotomy [facility] [address] [place] [address] Mvmg, Gml Mobile Home Draw 2520 [facility] [place] [address] 10/20/2024 7:00 AM EST Laboratory Lab Mobile Phlebotomy [facility] [address] [place] [address] Mvmg, Gml Mobile Home Draw [address] [place] [address] 10/27/2024 7:00 AM EST Laboratory Lab Mobile Phlebotomy [facility] [address] [place] [address] Mvmg, Gml Mobile Home Draw [address] [place] [address] 10/30/2024 10:00 AM EST Office Visit Urology Lynnette Fitzpatrick [address] [place] [address] Frank Peraza MD [address] [place] [address] Scheduled Procedures Name Priority Associated Diagnoses Date/Ti [...] 01/17/2024 01/17/2023, , 01/17/2023, Additional history exists Colonoscopy 08/09/2024 08/09/2023, 06/2022, 11/07/2022, Additional history exists Colorectal Cancer Screening 08/09/2024 HbA1c 10/08/2024 04/07/2024, 11/02, 05/28/2023, Additional history exists GFR 11/18/2024 05/19/2024, 05/02, 05/11/2024, Additional history exists Albumin/Creatinine Ratio 05/19/2025 024, 07/12/2023, 10/01/2022, Additional history exists CKD HGB USE SMARTSET 23536 05/19/202505/19, 05/19/2024, 05/18/2024, Additional history exists CKD PHOS USE SMARTSET 52371 05/19/202505/02, 05/08/2024, 04/07/2024, Additional history exists Diabetic [...] this encounter Medical Devices Implanted Type Area Workshop Manager Device Identifier Shelf Expiration Date Model / Serial / Lot Clareon Iol Aspheric Hydrophobic Acrylic Iol Implanted:Qty: 1 on 04/23/2023 by Cody Gonzalez DO at OR [facility] Lens Left: Eye 11/12/2025 CNA0T0 / [id number] / Viatorr Tips Endoprosthesis 8-10 Mm X 8cm / 2cm Implanted:Qty: 1 on 10/07/2020 by Go Alvarado MD at [facility] Right: Abdomen 03/03/2023 [id number] / / [id number] Description:Viatorr TIPS End oprosthesis 8-10 mm x 8cm / 2cm, Manufactored by [employer] Syr Pf 2ml Embospheres 100-300 - [id number] Implanted:Qty: 1 on 04/18/2021 by Kevin Lim DO at OR [facility] Left: Abdomen [employer] [id number] 11/25/2023 S220GH / / [id number] Lipiodol Injection - [id number] Implanted:Qty: 1 on 03/28/2022 at [facility] [employer] 03/01/2023 [address]-26 01-2 / [id number] Syr Pf 2ml Embospheres 100-300 - [id number] Implanted:Qty: 1 on 03/28/2022 at [facility] [employer] [id number] 08/31/2024 S220GH / / [id number] -5 Clareon Iol Aspheric Hydrophobic Acrylic Iol Implanted:Qty: 1 on 04/02/2023 by Cody Gonzalez DO at OR [facility] Right: Eye JAZMIN 11/12/2025 CNA0T0 / [id number] / documented as of this encounter Visit Diagnoses Diagnosis Restrictive lung disease- Primary Other diseases of lung, not elsewhere classified Radiation cystitis Irradiation cystitis documented in this encounter Advance Directives Documents on File Type Date Recorded Patient Gaggerman Expl anation Advance Directives and Living Will 12/11/2022 ADVANCE DIRECTIVE / LIVING WILL LIVING WILL Power of Lighting Fixture Installer 12/11/2022 POWER OF A TTORNEY * Full [...] Discussed due to patient's condition Care Teams Division Controller Relationship Specialty Start Date End Date Francisco Cisse MD 200 [place] [address] PCP - General Internal Medicine 09/04/21 documented as of this encounter
[2024-06-13] MEDS: INSULIN ASPART PER UNIT CHARGE SC SCH (00:38)
[2024-06-13 07:30] LABS: Hematocrit (blood only) 23.3 % (42.0-52.0); Hemoglobin 7.5 g/dl (14.0-18.0); Mean Corpuscular Hemoglobin 31.6 pg (25.0-34.0); Mean Corpuscular Hgb Conc 32.2 g/dL (32.0-36.0); Mean Corpuscular Volume 98.3 fL (80.0-100.0); Mean Platelet Volume 12.9 fL (9.4-12.4); Platelet Count 70 K/uL (130-400); RDW Coefficient of Variation 18.4 % (11.5-14.5); RDW Standard Deviation 65.5 fL (36.4-46.3); Red Blood Count 2.37 M/uL (4.70-6.10); White Blood Count 5.06 K/ul (4.8-10.8)
[2024-06-13 07:59] LABS: Albumin Level 3.4 gm/dl (3.4-5.0); Bilirubin,Total 1.7 mg/dl (0.2-1.0); Calcium 8.4 mg/dl (8.6-10.3); Magnesium 1.7 mg/dl (1.7-2.4); Potassium 4.6 mmol/L (3.5-5.1)
[2024-06-13 08:05] LABS: Albumin Globulin Ratio 1.2 (0.9-2); BUN Creatinine Ratio 24.8 (10-20); Creatinine Clr Calc Pharmacy 43.7 ml/min; Est GFR (African American) 51.2 ml/min; Est GFR (Non-African American) 44.1 ml/min; Globulin 2.9 gm/dl (2.5-4.0); Phosphorus 3.2 mg/dl (2.5-4.9); Total Protein 6.3 gm/dl (6.0-8.3)
[2024-06-13] MEDS: DULoxetine HCL 30 MG CAP PO SCH (08:21)
[2024-06-13] MEDS: MAGNESIUM CHLORIDE W/CALCIUM 64MG DELAYED REL TAB PO SCH (08:21)
[2024-06-13] MEDS: ADVANCED PROBIOTIC 625 MG CAPSULE PO SCH (08:21)
[2024-06-13] MEDS: allopurinoL 100 MG TAB PO SCH (08:22)
[2024-06-13] MEDS: ACETYLCYSTEINE 600 MG CAP PO SCH (08:22)
[2024-06-13] MEDS: MULTIVITAMIN TAB PO SCH (08:22)
[2024-06-13] MEDS: ZINC SULFATE 220 MG CAPSULE PO SCH (08:23)
[2024-06-13] MEDS: FINASTERIDE 5 MG TAB PO SCH (08:23)
[2024-06-13] MEDS: FERROUS SULFATE 325 MG TAB PO SCH (08:23)
[2024-06-13] MEDS: OXYBUTYNIN CHLORIDE XL 5 MG TABCR PO SCH (08:25)
--- NOTE | 2024-06-13 09:07 | CT Scan Report ---
CT SCAN OF THE ABDOMEN AND PELVIS WITHOUT IV CONTRAST CLINICAL HISTORY: Epigastric abdominal pain. History of hepatocellular carcinoma. COMPARISON STUDY: Abdominal CT dated 05/24/2024 and 03/19/2024. TECHNIQUE: CT scan of the abdomen and pelvis is performed from the lung bases to the proximal femora. Images are reviewed in the axial, sagittal, and coronal planes. IV contrast was not administered for this examination as per the referring clinician. Note that the examination was performed and signifi cantly suboptimal fashion without oral and IV contrast. A dose lowering technique was utilized adheri ng to the principles of ALARA. CT DOSE: 1044.52 mGy.cm FINDINGS: Lung bases: The heart is enlarged noting a small pericardial effusion. The coronary arteries are dens joss calcified. There is diminished attenuation of the cardiac blood pool as compared to myocardium turner ggesting anemia PA The lung bases are clear noting bibasilar scarring/atelectasis. Gynecomastia is no javon. There is a small hiatal hernia. Liver: The unenhanced liver is cirrhotic in morphology and heterogeneous in attenuation. There is nod ularity of the hepatic surface contour. A TIPS catheter is in place. There is no intrahepatic biliary ductal dilatation. There are 2 large left lobe hepatic mass lesions. A lesion on image #50 measures 4.6 cm and a lesion on image #61 measures 4.2 cm. The second lesion was not clearly seen on 05/24/2024 . Gallbladder: There are calcified gallstones with no CT evidence of acute cholecystitis. Spleen: The spleen is enlarged, measuring 16.6 cm in length. Pancreas: A 1. Centimeter peripherally calcified cystic lesion in the pancreatic head is unchanged fr om previous. The unenhanced pancreas is otherwise normal as imaged. Adrenal glands: Unremarkable. Kidneys: The unenhanced kidneys demonstrate cortical atrophy and are without hydronephrosis. There ar e no renal calculi identified. There is no evidence of contour deforming renal mass lesion. Abdominal vasculature: The abdominal aorta is normal in course and caliber noting mild to moderate at herosclerotic calcification. Bowel: There is moderate colonic diverticulosis without CT evidence of acute diverticulitis. No bowel obstruction is seen. There is moderate constipation. The appendix is well-visualized and normal. Peritoneum: There is a small volume of abdominopelvic ascites. No intraperitoneal free air is seen. Lymphadenopathy: None. Pelvic viscera: The prostate gland is enlarged and heterogeneous. The bladder wall is thickened and t rabeculated indicating chronic outlet obstruction. Inflammation is seen around the bladder and prosta te. Large bladder calculi are noted. The bladder contains excreted IV contrast Skeletal structures: The skeletal structures are osteopenic. There is moderate lumbosacral spondylosi s. Compression deformities of T12, L1, and L2 are unchanged. Arthritic change is seen in the hips. No lytic or blastic lesions are seen. IMPRESSION: 1. Significantly suboptimal examination without oral and IV contrast. 2. The liver is cirrhotic in morphology and heterogeneous in attenuation noting a TIPS catheter in pl tamela. 3. Splenomegaly and abdominal ascites indicate portal hypertension. 4. There are 2 left lobe hepatic mass lesions identified. The more inferiorly located lesion was not clearly seen on prior examinations and this favors progression/multifocal disease. 5. Inflammation is again seen around the bladder and prostate. Correlate clinically and with urinalys is for evidence of cystitis/prostatitis. 6. Bladder calculi are noted. 7. Colonic diverticulosis without CT evidence of acute diverticulitis. 8. Cholelithiasis. 9. Additional findings as above. ACT 112: Negative or not required by law. Electronically signed by: Scott Yepez M.D. 06/13/2024 9:05 AM
--- NOTE | 2024-06-13 11:56 | Electrocardiogram Report ---
Test Reason : Blood Pressure : / mmHG Vent. Rate : 061 BPM Atrial Rate : 061 BPM P-R Int : 190 ms QRS Dur : 088 ms QT Int : 468 ms P-R-T Axes : 037 -04 004 degrees QTc Int : 471 ms Normal sinus rhythm Nonspecific ST and T wave abnormality Prolonged QT Abnormal ECG When compared with ECG of 12-JUN-2024 11:30, Nonspecific T wave abnormality now evident in Inferior leads Nonspecific T wave abnormality, worse in Anterolateral leads Confirmed by Salvador Scanlon ([id number]) on 06/13/2024 11:55:51 AM Referred By: REFERRED SELF Confirmed By:Salvador Scanlon
--- NOTE | 2024-06-13 14:08 | Hospitalist Progress Note ---
Date of Service June 13, 2024 Assessment & Plan (1) Epigastric abdominal pain: (2) Increased anion gap metabolic acidosis: (3) Elevated lactic acid level: Plan 74y/o M with PMHx of DM type II [on basal insulin], CKD stage III, dyslipidemia, chronic gout of multiple sites, restrictive lung disease, pulmonary hypertension, gastric antral vascular ectasia, esophageal varices, history of portal vein thrombosis, cirrhosis of liver with portal hypertension s/p TIPS, hepatocellular carcinoma, GERD, prostate cancer, radiation cystitis, acquired thrombocytopenia, chronic anemia and other problems listed below who presented to the ED secondary to an episode of epigastric pain. Patient was most recently hospitalized and treated here at [facility], [place] 05/20-05/30 for LUCRETIA, abdominal ascites and acute blood loss anemia. He is being managed for the following: Epigastric Abdominal Pain, likely PUD Chest Pain Rule-Out Patient developed chest pain on the way to paracentesis, reported epigastric pain, very sharp in nature, lasted for 10 minutes, spontaneously resolved, no sweaty or shortness of breath. Troponin x 4 negative, EKG without acute ST or T changes. Echo with EF of 60 to 65%, no regional wall motion abnormality. Lipase minimally elevated, CTAP not s/o pancreatitis but notes were cirrhotic liver/TIPS catheter in place/splenomegaly/abdominal ascites/2 left lobe hepatic mass lesions. Continue telemetry monitoring, continue with PPI IV twice daily, patient reports decrease in the frequency of his chest pain. Increased Anion Gap Metabolic Acidosis - likely 2/2 elevated LA. Elevated Lactic Acid Level Anion gap mildly elevated at presentation, likely secondary to lactic acid elevation. Status post gentle IV fluid. AGMA and lactic acid resolved. T2DM on insulin Uncontrolled diabetes Patient's BSG noted to be elevated at 350 upon arrival to ED. urinary ketones negative. Patient utilizes basal insulin at home, A1c of 8.0 on 05/18/2024. Sliding scale insulin, glycemic pharmacy on board. CKD Stage III: Creatinine at 1.7 on admission, improving from kidney function from recent admission. May be this is his new baseline. Continue with home Lasix and Aldactone. Liver Cirrhosis 2/2 FOFANA H/O Esophageal Varices & Gastric Antral Vascular Ectasia Pt was to attend previously scheduled paracentesis appointment on the day of arrival. Pt getting paracentesis q1-2 weeks. Likely will get paracentesis on Saturday. C/w furosemide, Xifaxan and lactulose. Hepatocellular Carcinoma, h/o Chronic Anemia & Thrombocytopenia Pt underwent transarterial bland embolization at [facility] (06/11).Pt follows w/ [facility] [Dr. Ramires]. Baseline Hgb ~8 per chart review; Hgb 8.4 on admission. today 7.5, monitor for need for blood transfusion. Plt count 76K on admission - appears rather stable per chart review [2/2 liver cirrhosis]. Pt has required frequent blood transfusions in the past. He was also treated multiple times w/ iron infusions. Continue JAVA TECH LEAD iron supplementation, repeat CBC in AM - closely monitor Hgb and p lt count. H/O Prostate Cancer & Radiation Cystitis: Pt follows Dr. Ramires (onco) and Dr. Peraza (uro). Completed radiation therapy to the prostate on 04/05/21. History of radiation cystitis s/p cystourethroscopy with clot evacuation and fulguration. Hematuria hx, blood in urine has been improving per pt. Can continue JAVA TECH LEAD finasteride, oxybutynin and solifenacin. H/O Gout: Can continue JAVA TECH LEAD allopurinol. Anxiety & Depression: Can continue JAVA TECH LEAD duloxetine, mirtazapine. DVT Prophylaxis: SCDs Code Status: DNR/DNI PCP: Kristen Vences, DO Admission and Anticipated Discharge Date Admission Date: June 12, 2024 Subjective Patient was seen and examined at bedside. Patient was lying in bed, on room air, NAD, resting comfortably. Patient denies chest pain at bedside exam, reports intermittent chest pain, denies headache/febrile illness/blood in urine/sore throat/cough. Per RN no new acute event overnight. Physical Exam Physical Exam: General: NAD, laying down in bed. A+Ox3, euthymic affect. HEENT: Normocephalic, atraumatic. Conjunctivae normal, anicteric sclerae, oropharynx normal. Respiratory: Normal respiratory effort, lungs clear to auscultation. No accessory muscle use. Cardiovascular: Regular rate, rhythm, no BLE edema. Vessels: No JVD. Abdomen/GI: Normal bowel sounds, soft, mild abdominal distention. Extremities/Musculoskeletal: No cyanosis or clubbing, moves all extremities. Neurologic: PERRL, EOMI, accommodation nl, no face palsy, no dysarthria. Skin: Appears very mildly jaundiced; no rashes or diaphoresis. Results & Data Results & Data Vital Signs (Past 12 Hours) Vital Signs Temp Pulse Resp BP BP Pulse Ox O2 Del Method 06/13/24 10:30 36.7 C 68 20 172/71 H 97 Room Air 06/13/24 08:00 Room Air 06/13/24 07:25 36.6 C 61 20 173/61 H 99 Room Air 06/13/24 04:09 36.6 C 60 17 144/68 H 99 Room Air
--- NOTE | 2024-06-13 14:29 | Pharmacy Report ---
Pharmacy Glycemic Short Note 2 - Date of Service June 13, 2024 - Glycemic Short BSG Results (Last 24 hours): 06/12/24 06/12/24 06/12/24 14:14 15:54 16:48 Glucose POC Glucose 339 H* 264 H 243 H 06/12/24 06/12/24 06/12/24 17:50 17:57 19:01 Glucose 157 H POC Glucose 192 H 193 H 06/12/24 06/12/24 06/12/24 20:12 21:09 22:00 Glucose POC Glucose 172 H 161 H 130 H 06/13/24 06/13/24 06/13/24 00:05 03:40 07:05 Glucose 104 H POC Glucose 145 H 146 H 06/13/24 06/13/24 07:25 11:33 Glucose POC Glucose 111 H 182 H OUTPATIENT ANTIDIABETIC REGIMEN: * Lantus 25 units HS ASSESSMENT: * 74 year old admitted with abdominal pain, mild DKA started on insulin infusion. Infusion d/c last evening, given 20 units of basal insulin to overlap with insulin drip. * Fasting BSG 104 mg/dL - may scale back slightly on basal ~15% as no longer on dextrose fluids. Patient ate breakfast, but no lunch documented. * Continue same CF/CR for now PLAN FOR INPATIENT GLYCEMIC CONTROL: * Hold outpatient oral diabetes medications * Basal insulin * Lantus 17 units HS * Bolus insulin * NovoLog per scale ACHS or Q6hrs while NPO * Goal Range: Low 110 mg/dL - High 140 mg/dL * Correction Factor: 35 mg/dL/unit * Nutritional / Prandial insulin per carb ratio of 1 unit per 12 grams CHO consumed
[2024-06-13] MEDS: LANTUS PER UNIT CHARGE SC SCH (16:44)
[2024-06-13] MEDS ORDERED: LANTUS PER UNIT CHARGE SC SCH (17:00)
[2024-06-14 07:23] LABS: Hematocrit (blood only) 21.2 % (42.0-52.0); Mean Corpuscular Hemoglobin 32.3 pg (25.0-34.0); Mean Corpuscular Volume 97.7 fL (80.0-100.0); Mean Platelet Volume 11.9 fL (9.4-12.4); Platelet Count 56 K/uL (130-400); RDW Coefficient of Variation 18.6 % (11.5-14.5); RDW Standard Deviation 65.2 fL (36.4-46.3); Red Blood Count 2.17 M/uL (4.70-6.10); White Blood Count 4.45 K/ul (4.8-10.8)
[2024-06-14 07:37] LABS: Calcium 7.5 mg/dl (8.6-10.3); Creatinine Clr Calc Pharmacy 50.7 ml/min; Est GFR (African American) 61.2 ml/min; Est GFR (Non-African American) 52.8 ml/min; Magnesium 1.5 mg/dl (1.7-2.4); Phosphorus 2.5 mg/dl (2.5-4.9); Potassium 4.2 mmol/L (3.5-5.1)
[2024-06-14] MEDS ORDERED: SODIUM CHLORIDE 0.9% 250 ML IV PRN (07:57)
[2024-06-14] MEDS: SPIRONOLACTONE 100 MG TAB PO SCH (09:01)
[2024-06-14] MEDS: oxyBUTYnin chloride 5 MG TAB PO PRN (09:01)
[2024-06-14] MEDS: FUROSEMIDE 40 MG TAB PO SCH (09:02)
[2024-06-14] MEDS: MAGNESIUM SULFATE / D5W 1 GM/100 ML BAG IV SCH (09:15)
--- NOTE | 2024-06-14 15:38 | Hospitalist Progress Note ---
Date of Service June 14, 2024 Assessment & Plan (1) Epigastric abdominal pain: (2) Increased anion gap metabolic acidosis: (3) Elevated lactic acid level: Plan 74y/o M with PMHx of DM type II [on basal insulin], CKD stage III, dyslipidemia, chronic gout of multiple sites, restrictive lung disease, pulmonary hypertension, gastric antral vascular ectasia, esophageal varices, history of portal vein thrombosis, cirrhosis of liver with portal hypertension s/p TIPS, hepatocellular carcinoma, GERD, prostate cancer, radiation cystitis, acquired thrombocytopenia, chronic anemia and other problems listed below who presented to the ED secondary to an episode of epigastric pain. Patient was most recently hospitalized and treated here at [facility] 05/20-05/30 for LUCRETIA, abdominal ascites and acute blood loss anemia. He is being managed for the following: Epigastric Abdominal Pain, likely PUD Chest Pain Rule-Out Patient developed chest pain on the way to paracentesis, reported epigastric pain, very sharp in nature, lasted for 10 minutes, spontaneously resolved, no sweaty or shortness of breath. Troponin x 4 negative, EKG without acute ST or T changes. Echo with EF of 60 to 65%, no regional wall motion abnormality. Lipase minimally elevated, CTAP not s/o pancreatitis but notes were cirrhotic liver/TIPS catheter in place/splenomegaly/abdominal ascites/2 left lobe hepatic mass lesions. Continue telemetry monitoring, continue with PPI IV twice daily, patient reports no chest pain. Increased Anion Gap Metabolic Acidosis - likely 2/2 elevated LA. Elevated Lactic Acid Level Anion gap mildly elevated at presentation, likely secondary to lactic acid elevation. Status post gentle IV fluid. AGMA and lactic acid resolved. T2DM on insulin Uncontrolled diabetes Patient's BSG noted to be elevated at 350 upon arrival to ED. urinary ketones negative. Patient utilizes basal insulin at home, A1c of 8.0 on 05/18/2024. Sliding scale insulin, glycemic pharmacy on board. CKD Stage III: Creatinine at 1.7 on admission, improving from kidney function from recent admission. Continue with home Lasix and Aldactone. Liver Cirrhosis 2/2 FOFANA H/O Esophageal Varices & Gastric Antral Vascular Ectasia Pt was to attend previously scheduled paracentesis appointment on the day of arrival. Pt getting paracentesis q1-2 weeks. Likely will get paracentesis on Saturday. Hold lasix and aldactone on day of and day after paracentesis as per prior nephro recs. C/w furosemide, Xifaxan and lactulose. Hepatocellular Carcinoma, h/o Chronic Anemia & Thrombocytopenia Pt underwent transarterial bland embolization at [facility] (06/11).Pt follows w/ [facility] [Dr. Ramires]. From recent admission - GI evaled given CT abdomen/pelvis findings; they recommend outpatient EUS for evaluation of possible pancreatic head mass. Baseline Hgb ~8 per chart review; Hgb 8.4 on admission. today 7.5, monitor for need for blood transfusion. Plt count 76K on admission - appears rather stable per chart review [2/2 liver cirrhosis]. Pt has required frequent blood transfusions in the past. He was also treated multiple times w/ iron infusions. 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 H/O Prostate Cancer & Radiation Cystitis: Pt follows Dr. Ramires (onco) and Dr. Peraza (uro). Completed radiation therapy to the prostate on 04/05/21. History of radiation cystitis s/p cystourethroscopy with clot evacuation and fulguration. Hematuria hx, blood in urine has been improving per pt. Can continue TERMINAL PRESS OPERATOR finasteride, oxybutynin and solifenacin. H/O Gout: Can continue TERMINAL PRESS OPERATOR allopurinol. Anxiety & Depression: Can continue TERMINAL PRESS OPERATOR duloxetine, mirtazapine. DVT Prophylaxis: SCDs Code Status: DNR/DNI PCP: Kristen Vences, DO Admission and Anticipated Discharge Date Admission Date: June 12, 2024 Subjective Patient was seen and examined at bedside. Patient was lying in bed, on room air, NAD, resting comfortably. Patient denies chest pain , denies headache/febrile illness/blood in urine/sore throat/cough. Per RN no new acute event overnight. Physical Exam Physical Exam: General: NAD, laying down in bed. A+Ox3, euthymic affect. HEENT: Normocephalic, atraumatic. Conjunctivae normal, anicteric sclerae, oropharynx normal. Respiratory: Normal respiratory effort, lungs clear to auscultation. No accessory muscle use. Cardiovascular: Regular rate, rhythm, no BLE edema. Vessels: No JVD. Abdomen/GI: Normal bowel sounds, soft, mild abdominal distention. Extremities/Musculoskeletal: No cyanosis or clubbing, moves all extremities. Neurologic: PERRL, EOMI, accommodation nl, no face palsy, no dysarthria. Skin: Appears very mildly jaundiced; no rashes or diaphoresis. Results & Data Results & Data Vital Signs (Past 12 Hours) Vital Signs Temp Pulse Pulse Resp BP BP Pulse Ox 06/14/24 12:28 37.5 C 76 18 145/68 H 97 06/14/24 11:34 36.8 C 68 20 156/78 H 98 06/14/24 11:05 37.2 C 73 22 150/58 H 97 06/14/24 10:55 37.0 C 82 20 158/68 H 96 06/14/24 10:25 37.0 C 78 20 150/60 H 97 06/14/24 10:10 37.2 C 72 20 153/78 H 96 06/14/24 09:54 37.4 C 72 20 142/57 H 98 06/14/24 07:16 37.5 C 73 21 145/63 H 95 06/14/24 04:11 37.3 C 70 17 142/57 H 97 O2 Del Method 06/14/24 12:28 06/14/24 11:34 06/14/24 11:05 Room Air 06/14/24 10:55 06/14/24 10:25 06/14/24 10:10 06/14/24 09:54 06/14/24 07:16 Room Air 06/14/24 04:11 Room Air
[2024-06-15 07:23] LABS: Hematocrit (blood only) 25.2 % (42.0-52.0); Hemoglobin 8.5 g/dl (14.0-18.0); Mean Corpuscular Hemoglobin 31.8 pg (25.0-34.0); Mean Corpuscular Hgb Conc 33.7 g/dL (32.0-36.0); Mean Corpuscular Volume 94.4 fL (80.0-100.0); Platelet Count 50 K/uL (130-400); RDW Coefficient of Variation 19.7 % (11.5-14.5); RDW Standard Deviation 67.8 fL (36.4-46.3); Red Blood Count 2.67 M/uL (4.70-6.10); White Blood Count 4.61 K/ul (4.8-10.8)
[2024-06-15 07:38] LABS: BUN Creatinine Ratio 22.2 (10-20); Calcium 7.9 mg/dl (8.6-10.3); Creatinine Clr Calc Pharmacy 46.5 ml/min; Est GFR (African American) 55.1 ml/min; Est GFR (Non-African American) 47.5 ml/min; Magnesium 1.8 mg/dl (1.7-2.4); Potassium 4.6 mmol/L (3.5-5.1)
[2024-06-15 08:09] VITALS: TEMP 99
[2024-06-15] MEDS: ALBUMIN 25% 25 GM/100 ML VIAL IV ONE ×2 (10:02→12:21)
[2024-06-15 11:34] VITALS: RESP 19; O2SAT 98
--- NOTE | 2024-06-15 11:50 | Pharmacy Report ---
Pharmacy Glycemic Short Note 2 - Date of Service June 15, 2024 - Glycemic Short BSG Results (Last 24 hours): 06/14/24 06/14/24 06/15/24 16:20 20:15 06:49 Glucose 131 H POC Glucose 178 H 224 H 06/15/24 06/15/24 07:27 11:03 Glucose POC Glucose 137 H 198 H OUTPATIENT ANTIDIABETIC REGIMEN: * Lantus 25 units HS ASSESSMENT: 06/15: * BSGs [id number] mg/dL yesterday with 17 units of basal, 21 units of prandial/correctional * Carb ratio tightened after lunch yesterday- monitor * Continue current Basal- fasting 137 mg/dL today 06/13 * 74 year old admitted with abdominal pain, mild DKA started on insulin infusion. Infusion d/c last evening, given 20 units of basal insulin to overlap with insulin drip. * Fasting BSG 104 mg/dL - may scale back slightly on basal ~15% as no longer on dextrose fluids. Patient ate breakfast, but no lunch documented. * Continue same CF/CR for now PLAN FOR INPATIENT GLYCEMIC CONTROL: * Hold outpatient oral diabetes medications * Basal insulin * Lantus 17 units HS * Bolus insulin * NovoLog per scale ACHS or Q6hrs while NPO * Goal Range: Low 110 mg/dL - High 140 mg/dL * Correction Factor: 35 mg/dL/unit * Nutritional / Prandial insulin per carb ratio of 1 unit per 10 grams CHO consumed
--- NOTE | 2024-06-15 12:55 | Discharge Summary ---
Date of Service June 15, 2024 Admission HPI Per Admitting Provider Luis Hale is a 74y/o M with PMHx of DM type II [on basal insulin], CKD stage III, dyslipidemia, chronic gout of multiple sites, restrictive lung disease, pulmonary hypertension, gastric antral vascular ectasia, esophageal varices, history of portal vein thrombosis, cirrhosis of liver, GERD, history of liver cell carcinoma, prostate cancer, radiation cystitis, acquired thrombocytopenia, chronic anemia and other problems listed below who presented to the ED secondary to an episode of chest pain. History obtained from patient and associated chart review. According to ED provider, patient was on his way to have paracentesis performed (as scheduled) when he began to experience central chest pain that lasted for approximately 10 minutes - which caused him to come to the ED. The pain ultimately resolved spontaneously and has not returned since then. Patient seen at bedside. He reports that this episode of pain was not localized to his chest, but rather his epigastric region. He said it was very sharp and lasted approximately 10-15 minutes before it completely resolved. He denies any other recent episodes of pain such as this. No recent fevers, illnesses or chills. He ate a cookie, cupcake and some grapes for breakfast - which he thinks may have caused this episode potentially. He typically does not consume those foods for breakfast. He reports no pain during our conversation - states he is feeling well overall. No shaking, diaphoresis, N/V or abdominal pain. Patient's BSG noted to be elevated at 350 upon arrival to ED; patient notes his blood sugar has been running in the 120s at home. He ultimately received an insulin bolus in the ED and his BSG decreased to 339. Patient uses basal insulin at home - 25 units of insulin glargine QPM. He has been on short-acting insulin in the past, but denies being on a basal/bolus regimen anytime recently. Patient was most recently hospitalized and treated here at [facility] 05/20-05/30 for LUCRETIA, abdominal ascites and acute blood loss anemia. He is s/p 1 unit of PRBCs on 05/22 and another 1 unit of PRBCs on 05/28. Patient notes that his hematuria has significantly improved - has not noticed much to any blood in his urine since being discharged. Principal Diagnosis liver cirrhosis Discharge Exam Neuro: AAOx4, PERRLA, no aphagia, memory changes, CNII-XII grossly intact HEENT: head normocephalic, moist mucus membranes CV: S1/S2, (-) M/G/R, (-) edema, cap refill < 3 seconds Resp: Lungs CTA in all brand. On RA GI: Abdomen S/NT/ND, Ax4 bowel sounds, (-) CVA tenderness Musculoskeletal: 5/5 B/L UE strength, 5/5 B/L LE strength. No gait disturbance Skin: (-) rashes , (-) erythema. (+) ecchymosis bilateral forearm Psych: euthymic mood Discharge Data Allergies Allergy/AdvReac Type Severity Reaction Status Date / Time No Known Allergies Allergy Mild Verified 06/12/24 15:49 Consultations 06/12/24 15:18 ED Decision to Admit Stat Ordered Studies 06/12/24 16:58 CT abd pelvis wo con Stat 06/15/24 IR paracentesis abd w/img US Routine Hospital Course (1) Epigastric abdominal pain: (2) Increased anion gap metabolic acidosis: (3) Elevated lactic acid level: Plan 74y/o M with PMHx of DM type II [on basal insulin], CKD stage III, dyslipidemia, chronic gout of multiple sites, restrictive lung disease, pulmonary hypertension, gastric antral vascular ectasia, esophageal varices, history of portal vein thrombosis, cirrhosis of liver with portal hypertension s/p TIPS, hepatocellular carcinoma, GERD, prostate cancer, radiation cystitis, acquired thrombocytopenia, chronic anemia and other problems listed below who presented to the ED secondary to an episode of epigastric pain. Patient was most recently hospitalized and treated here at [facility] 05/20-05/30 for LUCRETIA, abdominal ascites and acute blood loss anemia. Patient developed chest pain on the way to his paracentesis which spontaneously resolved after 10 minutes. Troponin, EKG and echo did not indicate any abnormalities or concerns for AMI. A CTAP was performed on 06/12 1. Significantly suboptimal examination without oral and IV contrast. The liver is cirrhotic in morphology and heterogeneous in attenuation noting a TIPS catheter in place. Splenomegaly and abdominal ascites indicate portal hypertension. There are 2 left lobe hepatic mass lesions identified. The more inferiorly located lesion was not clearly seen on prior examinations and this favors progression/multifocal disease. Inflammation is again seen around the bladder and prostate. Correlate clinically and with urinalysis for evidence of cystitis/prostatitis. Bladder calculi are noted. Colonic diverticulosis without CT evidence of acute diverticulitis. Initially his anion gap was mildly elevated at presentation which was likely secondary to lactic acid elevation which did improve after gentle IV fluids. Prior to patient's arrival to the ED he was planning to attend a previously scheduled paracentesis which she has been receiving every 1 or 2 weeks. A therapeutic paracentesis was performed today 06/15 with 1.2 L removed and discarded from a pocket of fluid identified in the left lower quadrant. Per recommendations by nephrology on 05/28 he is to continue to hold Lasix and Aldactone on the day of and day after paracentesis. Patient can resume Lasix and Aldactone on Sunday 06/17. Patient is to follow up with his PCP on Tuesday 06/19. His son will be transporting him home and he is stable at time of discharge. Total Time Total Time Spent Total Time Spent (In Minutes): I spent a total of 62 minutes coordinating, documenting, and providing care for this patient excluding time spent in the performance of separately billed services. All of the aforementioned completed while collaborating with the assigned attending physician for a full treatment plan. Please see their addendum for further details. 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 ) Diet: Carb Consistent or DM2, Heart Healthy and Low Potassium (2gm) Fluids: 1500ml (6 cups) Addtl Attending Provider Instructions: You were admitted on June 12 after developing chest pain on the way to your paracentesis that was scheduled. He reportedly indicated that the pain was sharp in nature and spontaneously resolved after 10 minutes. A full cardiac workup was performed and negative for signs of acute myocardial infarction or heart concerns. As you were previously scheduled to have a paracentesis we held your diuretics and a therapeutic paracentesis was performed today 06/15 with 1.2 L liters of fluid removed from your left lower quadrant of your abdomen. Per recommendation from nephrology please continue to hold your furosemide and Aldactone medications which could be resumed on 06/17/2024 Continue conservative management by avoiding any nonsteroidal NSAIDs and continue to limit your fluids with a fluid restriction of 1.5 L and low to follow a low-sodium diet. It is suspected that you may require a therapeutic paracentesis 1 or 2 times weekly moving forward with gastroenterology. You have a follow-up appointment with Dr. Gee on 06/19 at 2:00 as outlined above. We are grateful that we have had the opportunity to be able to care for you during your hospital stay and should you have any additional questions or concerns please contact your primary care provider. Pending Studies at Discharge: No Stand-Alone Forms: [facility], Smoking Cessation Medications and DC Order Prescriptions: Continued allopurinol 100 mg Tablet 200 mg PO QAM ferrous sulfate [iron] 325 mg (65 mg iron) Tablet 650 mg PO QAM Rx Instructions: Unable to verify OTC meds at this date/time Men's 50 Plus Multivitamin 400-20-370 mcg Tablet 1 tab PO DAILY Rx Instructions: Unable to verify OTC meds with patient at this date/time. Probiotic 5 billion cell Capsule, Sprinkle 1 cap PO QAM Rx Instructions: Unable to verify OTC meds at this date/time finasteride 5 mg tablet 5 mg PO QAM Rx Instructions: Last filled 01/09/24 x90 day supply, caregiver states pt still on this medication. acetylcysteine 600 mg Capsule 600 mg PO DAILY pantoprazole 40 mg tablet,delayed release (DR/EC) 40 mg PO AMPM duloxetine 30 mg capsule,delayed release(DR/EC) 30 mg PO QAM Xifaxan 550 mg tablet 550 mg PO AMHS Rx Instructions: Medication was picked up from pharmacy on 06/12/2024 mirtazapine 30 mg tablet 30 mg PO HS Rx Instructions: Unable to very this medication at this date/time. lactulose [Kristalose] 10 gram packet 10 g PO BID PRN (Reason: .) Rx Instructions: hold for more than 3 more BMs oxybutynin chloride 5 mg tablet 5 mg TID PRN (Reason: Bladder Spasms) cholestyramine (with sugar) 4 gram powder in packet 1 ea PO BID solifenacin 5 mg tablet 5 mg PO DAILY Rx Instructions: Medication was picked up from pharmacy on 06/12/24 magnesium chloride [Mag 64] 64 mg tablet,delayed release (DR/EC) 64 mg PO DAILY Rx Instructions: Last filled 02/22 x30 day supply, caregiver states pt still on this medication. triamcinolone acetonide 0.1 % cream 1 applic TOPICAL DAILY zinc gluconate 50 mg Tablet 50 mg PO DAILY Qty: 0 Rx Instructions: Unable to verify OTC meds at this date/time insulin glargine [Lantus Solostar U-100 Insulin] 100 unit/mL (3 mL) insulin pen 25 unit SUBCUT QPM Held spironolactone 100 mg Tablet 100 mg PO QAM Qty: 30 0RF Hold Instructions: Resume on 06/17/24. Hold for day of and day after paracentesis furosemide 40 mg Tablet 40 mg PO QAM Qty: 30 0RF Hold Instructions: Resume on 06/17/24. Hold day of and day after paracentesis Discontinued metoclopramide HCl 5 mg tablet 5 mg PO TID PRN (Reason: Nausea And Vomiting) acetaminophen 500 mg Tablet 1,000 mg PO BID MDD 2000mg/24hr PRN (Reason: Pain) Rx Instructions: Unable to verify OTC meds at this date/time albumin, human 25 % See Rx Instructions .ROUTE .COMPLEX Rx Instructions: If paracentesis yields a total volume of more than 3 L of fluid give 25% albumin as follows: 3L-5L-Give 1 unit albumin (25 gm in 100 mL), 5L-7.5L-Give 2 units albumin (25 gm in 100 mL), 7.5L-12L-Give 3 units albumin. Infuse albumin in 30 to 60 minutes each. - Caregiver unsure about this medication at this date/time. Discharge Orders: Discharge Order (Routine); Ordered 06/15/24 Ordered By: Shaye Velazquez/Other Patient Handouts: High Blood Sugar (Hyperglycemia) Admission Data Admit Date/Time: 06/12/24 14:58 Attending Provider: Dangelo George Admit Provider: Franko Villanueva Primary Care Provider: Kristen Gee Other Providers: Franko Villanueva; [facility] Fax Other Interventions: Discharge Summary Assessment (RN) Last Done: 06/15/24 15:17 Supervising Physician Co-Signing Physician Notes pt denies chest pain. received 1 u prbc, hb stable. no hematuria. received paracentesis, no abd pain , received albumin. pt to hold lasix aldactone today and it[place]. pt educated. pt to f/u weekly for paracentesis and blood transfusion need eval. rest as above. I have seen and examined the patient and have discussed the case with the provider above. I agree with the assessment and plan as stated.
--- NOTE | 2024-06-15 14:16 | Ultrasound Report ---
ULTRASOUND-GUIDED PARACENTESIS CLINICAL HISTORY: Ascites PROCEDURE: Procedure and risks were explained. Informed consent was obtained. A final timeout was com pleted. The abdomen was prepped and draped in sterile fashion. 1% lidocaine was utilized for skin ane sthesia. Utilizing ultrasound guidance, a 5 Sinhala safety centesis catheter was advanced into the left lower q uadrant pocket of ascites. Ultrasound images were obtained. A total of 1.2 L of ascites fluid was rem sam and discarded. The catheter was removed and Band-Aid applied. The patient tolerated the procedur e well. Vital signs will be monitored postprocedure. IMPRESSION: Ultrasound-guided paracentesis as above. Performed, dictated, and signed by Luis Ellis PA-C; to be co-signed by Dr. Elan Alexander. Electronically signed by: Elan Alexander M.D. 06/15/2024 3:27 PM
[2024-06-15 15:22] VITALS: BP 169/69
[2024-06-15 15:58] VITALS: PULSE 72
== END 2024-06-15 16:25 | disposition home or self-care (01) | DRG 392 ==
LOC: ED 11:17 → SUATTDRO 14:58 → 2E 14:58

== ENCOUNTER 2024-07-05 06:39 | Inpatient (IN) ==
--- OUTSIDE RECORDS SUMMARY | 2024-07-05 06:48 | External Medical Summary ---
Author Name Unknown Address Unknown Organization K01:[facility] [place] - [address] [facility] [address] Laboratory Report Ordering Provider Test Date Status KANDI RINALDI 06/30/2024 10:15:00 Final Observation Date Value Abnormality Reference (Units ) Status HbA1C 06/30/2024 10:15:00 5.8 Above high normal 4. 0-5.6 (%) Final The use of HbA1c to monitor glycemic status is based on normal hemoglobin and HbA composition. This test should not be used in patients with abnormal hemoglobin that affects the half life of the red blood cell or the in vivo glycation rates. Glucose, estimated average 06/30/2024 10:15:00 120 <126 (mg/dL) Final Performing Location [facility] [place] - [address] [facility] [address]
--- OUTSIDE RECORDS SUMMARY | 2024-07-05 06:48 | External Medical Summary | Summary of Care ---
Author Name Unknown Organization [facility] Address [address] [place] [address] Phone [phone] Care Team Providers Care Dye Feeder Name Role Phone Kristen Vences DO Primary Care Provider [phone] Encounter Details Date Type Department Care Team (Late st Contact Info) Description 06/29/2024 Result Scan Unspecified Department Ayaka Tatum CRNP [address] [facility] [address] [address] <No scans attached> Allergies No known active allergiesdocumented as of this encounter (statuses as of 06/30/2024) Medications Medication Sig Dispensed Refills Start Date [...] as of this encounter (statuses as of 06/30/2024) Active Problems Problem Noted Date Diagnosed Date [...] as of this encounter (statuses as of 06/30/2024) Resolved Problems Problem Noted Date Diagnosed Date [...] as of this encounter (statuses as of 06/30/2024) Immunizations Name Administration Dates Next Due COVID-19 [...] month at [facility] Handy Lyons and Mckinley [...] No 08/14/2023 Does the household have a [facility] hospitall[facility] source of income? (Household - for ages [...] Care Team (Late st Contact Info) Description 07/07/2024 7:00 AM EDT Laboratory [facility] [address] [place] [address] [facility] [address] [place] [address] 07/08/2024 1:00 PM EDT Office Visit Nephrology, [facility] [address] [place] [address] [address] Franki Herbert MD [address] [place] [address] 07/09/2024 9:40 AM EDT Office Visit [facility] [address] [address] Kristen Vences DO [address] [address] 07/14/2024 7:00 AM EDT Laboratory [facility] [address] [place] [address] [address] [facility] [address] [address] 07/21/2024 7:00 AM EDT Laboratory [facility] [address] [place], [place] [address] [facility] [address] [facility] [place], [place] [address] 07/28/2024 7:00 AM EDT Laboratory [facility] [address] [place], [place] [address] [facility] [address] [facility] [place], [place] [address] 07/28/2024 2:00 PM EDT Office Visit Nephrology, [facility] Blankenship [address] [place], [place] [address] Franki Herbert MD [address] [place] [address] 08/04/2024 7:00 AM EDT Laboratory [facility] [address] [place], [place] [address] [facility] [address] [facility] [place], [place] [address] 08/11/2024 7:00 AM EDT Laboratory [facility] [address] [place], [place] [address] [facility] [address] [facility] [place], [place] [address] 08/18/2024 7:00 AM EDT Laboratory [facility] [address] [place] [address] [facility] [address] [place] [address] 08/25/2024 7:00 AM EDT Laboratory [facility] [address] [place] [address] [facility] [address] [facility] [place], [place] [address] 09/01/2024 7:00 AM EDT Laboratory [facility] [address] [place], [place] [address] [facility] [address] [place] [address] 09/08/2024 7:00 AM EDT Laboratory [facility] [address] [place], [place] [address] [facility] [address] [place], [place] [address] 09/11/2024 3:00 PM EDT Imaging Radiology [address], [place] [address] [facility] [place] [address] 09/15/2024 7:00 AM EDT Laboratory [facility] [address] [place] [address] [facility] [address] [place], [place] [address] 09/22/2024 7:00 AM EDT Laboratory [facility] [address] [place] [address] [facility] [address] [place], [place] [address] 09/28/2024 2:30 PM EDT Office Visit Hematology/Oncology [facility] [place] [address] [facility] [place], [place] [phone] Ayaka Tatum CRNP [address] [place], [place] [address] [address] 09/29/2024 7:00 AM EDT Laboratory [facility] [address] [place], [place] [address] [facility] [address] [place], [place] [address] 10/06/2024 7:00 AM EST Laboratory [facility] [address] [place], [place] [address] [facility] [address] [place], [place] [address] 10/13/2024 7:00 AM EST Laboratory [facility] [address] [place] [place], [place] [address] [facility] [address] [employer] [place], [place] [address] 10/14/2024 2:00 PM EST Office Visit Pulmonary Medicine, [facility] [address] [facility] [place] [address] Jordan Stanley MD [address] [place] [address] 10/20/2024 7:00 AM EST Laboratory [facility] [address] [place] [place], [place] [address] [facility] [address] [facility] [place], [place] [address] 10/27/2024 7:00 AM EST Laboratory [facility] [address] [place] [place], [place] [address] [facility] [address] [place] [address] 12/03/2024 1:30 PM EST Office Visit Urology Lynnette Fitzpatrick [address] [address] Frank Peraza MD [address] [address] 02/11/2025 2:15 PM EDT Office Visit Ophthalmology, [facility] [address] [facility] [place] [address] Cody Gonzalez DO [address] [address] Scheduled Procedures Name Priority Associated Diagnoses Date/Ti me COLONOSCOPY FLEXIBLE PROXIMAL DIAGNOSTIC Recall History of colonic polyps Portal hypertensive gastropathy (HCC) ESOPHAGOGASTRODUODENOSCOPY ( EGD), FLEXIBLE, TRANSORAL, DIAGNOSTIC Recall History of colonic polyps Portal hypertensive gastropathy (HCC) Health Maintenance Due Date Last Done Comments Cologuard 1995 Fecal Occult Blood Test 05/08/2015 05/08/2014 Depression Screening 05/03/2022 05/03/2021 COVID-19 Vaccine ( season) 2023 10/18/2023, 03/08/2021, 02/15/2021 Influenza Vaccine (FLU shot) (#1) 2024 10/11/2023, 09/15/2021, 09/15/2021, Additional history exists Colonoscopy 08/09/2024 08/09/2023, 06/2022, 11/07/2022, Additional history exists Colorectal Cancer Screening 08/09/2024 Diabetic Eye Exam 08/19/2024 01/17/2023, , 01/17/2023, Additional history exists Postponed from 01/17/2024 (Other) HbA1c 10/08/2024 04/07/2024, 11/02, 05/28/2023, Additional history exists GFR 12/12/2024 06/11/2024, 07/0 08/2024, 05/19/2024, Additional history exists Albumin/Creatinine Ratio 05/19/2025 024, 07/12/2023, 10/01/2022, Additional history exists CKD PHOS USE SMARTSET 82229 05/19/202505/02, 05/08/2024, 04/07/2024, Additional history exists Diabetic Foot Exam 05/19/2025 05/19/2024, 0 03/06/2023, 01/03/2022, Additional history exists CKD HGB USE SMARTSET 41969 06/23/202506/23, 06/23/2024, 06/11/2024, Additional history exists Sigmoidoscopy 04/12/2027 04/12/2022 Lipid [...] history exists Zoster Vaccines Completed 03/22/2024, 10/18/2023 Hepatitis C Screening Completed 04/07/2024 , 04/07/2024, 04/07/2024, Additional history exists HPV (Gardasil) Vaccine Aged Out No lo nger eligible based on patient's age to complete this topic MENINGOCOCCAL (MENACTRA/MENVEO) Aged Out No longer eligible based on patient's age to complete this topic documented as of this encounter Medical Devices Implanted Type Area Yard Associate Device Identifier Shelf Expiration Date Model / Serial / Lot Clareon Iol Aspheric Hydrophobic Acrylic Iol Implanted:Qty: 1 on 04/23/2023 by Cody Gonzalez DO at [facility] Lens Left: Eye 11/12/2025 [id number] / [id number] / Viatorr Tips Endoprosthesis 8-10 Mm X 8cm / 2cm Implanted:Qty: 1 on 10/07/2020 by Go Alvarado MD at [facility] Right: Abdomen 03/03/2023 [id number] / / [id number] Description:Viatorr TIPS End oprosthesis 8-10 mm x 8cm / 2cm, Manufactored by [employer] Syr Pf 2ml Embospheres 100-300 - [id number] Implanted:Qty: 1 on 04/18/2021 by Kevin Lim DO at OR [facility] Left: Abdomen [employer] [id number] 11/25/2023 S220GH / / [id number] Lipiodol Injection - [id number] Implanted:Qty: 1 on 03/28/2022 at [facility] [employer] 03/01/2023 [id number] 01-2 / / [id number] Syr Pf 2ml Embospheres 100-300 - [id number] Implanted:Qty: 1 on 03/28/2022 at [facility] [employer] [id number] 08/31/2024 S220GH / / [id number] Clareon Iol Aspheric Hydrophobic Acrylic Iol Implanted:Qty: 1 on 04/02/2023 by Cody Gonzalez DO at [facility] Right: Eye [employer] 11/12/2025 [id number] / [id number] / Syr Pf 2ml Embospheres 100-300 - [id number] Implanted:Qty: 1 on 06/11/2024 at [facility] [employer] [id number] 01/02/2027 S220GH / / [id number] Cath Diag Cobra 2 4sfp36pd - [id number] Implanted:Qty: 1 on 06/11/2024 at [facility] [employer] [id number] 10/06/2026 [id number] / / [id number] documented as of this encounter Procedures Procedure Name Priority Date/Time Associated Diagnosis Comments OUTSIDE LAB RESULTS 06/29/2024 OUTSIDE LAB RESULTS 06/29/2024 documented in this encounter Results * OUTSIDE LAB RESULTS (06/29/2024) 06/29/2024 [facility] * OUTSIDE LAB RESULTS (06/29/2024) 06/29/2024 [facility] documented in this encounter Advance Directives Documents on File Type Date Recorded 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
--- OUTSIDE RECORDS SUMMARY | 2024-07-05 06:48 | External Medical Summary ---
Author Name Unknown Address Unknown Organization K01:LABORATORY [facility] [place] - [address] [place] [address] Laboratory Report Ordering Provider Test Date Status CHELSEY BISWAS 06/30/2024 10:15:00 Final Observation Date Value Abnormality Reference (Units ) Status SYNC LEUKOCYTES IN BLOOD BY AUTOMATED COUNT 06/30/2024 10:15:00 3.32 Below low normal 4.00-10.80 (K/uL) Final Segs 06/30/2024 10:15:00 69.3 40.0-75.0 (%) Final Lymphs % 06/30/2024 10:15:00 19.0 18.0-42.0 (%) Final Monos 06/30/2024 10:15:00 5.4 1.0-11.0 (%) Final Eosinophils 06/30/2024 10:15:00 5.7 0.0-6.0 (%) Final Basos 06/30/2024 10:15:00 0.3 0.0-2.0 (%) Final Immature Granulocyte, Percent 06/30/2024 10:15:00 0.3 0.0-2.0 (%) Final Absolute Segs 06/30/2024 10:15:00 2.30 1.80-7.70 (K/uL) Final Lymphs, absolute 06/30/2024 10:15:00 0.63 Below low normal 1.00-4.80 (K/ul) Final Monos, Abs 06/30/2024 10:15:00 0.18 0.00-1.10 (K/uL) Final Eos, Abs 06/30/2024 10:15:00 0.19 0.00-0.70 (K/uL) Final Basos, Abs 06/30/2024 10:15:00 0.01 0.00-0.20 (K/uL) Final Immature Granulocytes, Number 06/30/2024 10:15:00 0.01 0.00-0.20 (K/uL) Final Performing Location LABORATORY [facility] - [facility] [address]. [facility] [id number]
--- OUTSIDE RECORDS SUMMARY | 2024-07-05 06:48 | External Medical Summary | Summary of Care ---
Author Name Unknown Organization [facility] Address [address] [place] [address] Phone [phone] Care Team Providers Care Hired Worker Name Role Phone VangieKristen shahid Primary Care Provider [phone] Reason for Visit * Reason Onset Date Comments Advice 03/31/2024 Encounter Details Date Type Department Care Team (Late st Contact Info) Description 03/31/2024 Telephone General Internal Medicine [facility] [address] [place] [address] Francisco Cisse MD [address] [place] [address] Advice Allergies No known active allergiesdocumented as [...] 1 Tablet in the morning. 03/20/2024 Active documented as of this encounter (statuses [...] Resolved Date Acute blood loss anemia 05/08/2024 06 Hematuria, gross 12/19/2023 05/11/2024 Closed compression fracture [...] mRNA, LNP-s, No Pre serve, 2-Dose Series ([employer]) 03/08/2021,02/15/2021 HepA Inact/HepB Recomb>=18yrs old 12/04/2019,04/2019,05/20/2019 11/19/2019 PPD 06/18/2017, 3,01/09/2012,06/2011 Pneumococcal Conjugate Vacc, 13 Valent (Prevnar) 05/01/2017 Pneumococcal Polysaccharide PPV23 (Pneumovax) 08/28/2022,10/25/2015,07/14/2012 Season Influenza, Quad, PF, Adjuvanted, 65+ Yrs, IM (FLUAD) 10/07/2020(Deferred: Patient Refused - pt says he already had his shot last month at [facility] and Mckinley [facility] [...] Telephone Encounter - Megan Bear RN - 03/31/2024 2:56 PM EDT I called and scheduled: 1230 arrival [facility] 03/31/24. They confirmed they had standing orders. I called patient and he was agreeable. * Telephone Encounter - Megan Bear RN - 03/31/2024 2:31 PM EDT I left a message at [facility] to return my call. * Telephone Encounter - Ayaka Rubio OSA - 03/31/2024 10:13 AM EDT Patient has his paracentisis scheduled for April 10, can you schedule this at the hospital sooner in the next few days. He is not sure he can hold out until the . Due to bloating. Please call to advise. documented in this encounter Plan of Treatment Upcoming Encounters Date Type Department Care Team (Late st Contact Info) Description 07/07/2024 7:00 AM EDT Laboratory [facility] [address] [place] [address] [facility] [address] [place] [address] 07/08/2024 1:00 PM EDT Office Visit [facility] [address] [place] [address] Franki Herbert MD [address] [place] [address] 07/09/2024 9:40 AM EDT Office Visit Family [facility] [address] [facility] [place] [address] Kristen Vences, DO [address] [place] [address] 07/14/2024 7:00 AM EDT Laboratory [facility] [address] [place], [place] [address] [facility] [address] [employer] [facility] [place], [place] [address] 07/21/2024 7:00 AM EDT Laboratory [facility] [address] [employer] [place], [place] [address] [facility] [address] [facility] [place], [place] [address] 07/28/2024 7:00 AM EDT Laboratory [facility] [address] [employer] [place] [address] [facility] [address] [employer] [facility] [place], [place] [address] 07/28/2024 2:00 PM EDT Office Visit Nephrology, [facility] [address] [place], [place] [address] Franki Herbert MD [address] [place], [place] [address] 08/04/2024 7:00 AM EDT Laboratory [facility] [address] [employer] [facility] [place], [place] [address] [facility] [address] [facility] [place], [place] [address] 08/11/2024 7:00 AM EDT Laboratory [facility] [address] [place], [place] [address] [facility] [address] [facility] [place], [place] [address] 08/18/2024 7:00 AM EDT Laboratory [facility] [address] [place], [place] [address] [facility] [address] [place] [address] 08/25/2024 7:00 AM EDT Laboratory [facility] [address] [place], [place] [address] [facility] [address] [place], [place] [address] 09/01/2024 7:00 AM EDT Laboratory [facility] [address] [place], [place] [address] [facility] [address] [place], [place] [address] 09/08/2024 7:00 AM EDT Laboratory [facility] [address] [place], [place] [address] [facility] [address] [place], [place] [address] 09/11/2024 3:00 PM EDT Imaging Radiology [address], [place] [address] [facility] [address] 09/15/2024 7:00 AM EDT Laboratory [facility] [address] [place], [place] [address] [facility] [address] [facility] [place], [place] [address] 09/22/2024 7:00 AM EDT Laboratory [facility] [address] [place], [place] [address] [facility] [address] [facility] [place], [place] [address] 09/28/2024 2:30 PM EDT Office Visit Hematology/Oncology [facility] [place] [address] [place], [place] [phone] Ayaka Tatum CRNP [address] [place] [address] 09/29/2024 7:00 AM EDT Laboratory [facility] [address] [facility] [place] [address] [facility] [address] [facility] [place] [address] 10/06/2024 7:00 AM EST Laboratory [facility] [address] [facility] [place], [place] [address] [facility] [address] [place] [address] 10/13/2024 7:00 AM EST Laboratory [facility] [address] [facility] [place] [address] [facility] [address] [place] [address] 10/14/2024 2:00 PM EST Office Visit Pulmonary Medicine, [facility] [address] [place] [address] Jordan Stanley MD [address] [place] [address] 10/20/2024 7:00 AM EST Laboratory [facility] [address] [facility], [place] [address] [facility] [address] [facility], [place] [address] 10/27/2024 7:00 AM EST Laboratory [facility] [address] [place] [address] [facility] [address] [place] [address] 12/03/2024 1:30 PM EST Office Visit Lynnette Terry [address] [place] [address] Frank Peraza MD [address] [place] [address] 02/11/2025 2:15 PM EDT Office Visit Ophthalmology, [facility] [address] [place] [address] Cody Gonzalez, DO [address] [place] [address] Scheduled Procedures Name Priority Associated Diagnoses Date/Ti [...] 05/28/2023, Additional history exists GFR 12/12/2024 06/11/2024, 08/2024, 05/19/2024, Additional history exists Albumin/Creatinine Ratio 05/19/2025 024, 07/12/2023, 10/01/2022, Additional history exists CKD PHOS USE SMARTSET 60808 05/19/202505/02, 05/08/2024, 04/07/2024, Additional history exists Diabetic Foot Exam 05/19/2025 05/19/2024, 0 03/06/2023, 01/03/2022, Additional history exists CKD HGB USE SMARTSET 38804 06/23/202506/23, 06/23/2024, 06/11/2024, Additional history exists Sigmoidoscopy [...] this encounter Medical Devices Implanted Type Area Alarm Security Or Surveillance Monitor Device Identifier Shelf Expiration Date Model / Serial / Lot Clareon Iol Aspheric Hydrophobic Acrylic Iol Implanted:Qty: 1 on 04/23/2023 by Cody Gonzalez DO at [place] [facility] Lens Left: Eye 11/12/2025 [id number] / [id number] / Viatorr Tips Endoprosthesis 8-10 Mm X 8cm / 2cm Implanted:Qty: 1 on 10/07/2020 by Go Alvarado MD at [facility] Right: Abdomen 03/03/2023 [id number] / / [id number] Description:Viatorr TIPS End oprosthesis 8-10 mm x 8cm / 2cm, Manufactored by [employer] Syr Pf 2ml Embospheres 100-300 - [id number] Implanted:Qty: 1 on 04/18/2021 by Kevin Lim DO at [facility] Left: Abdomen [employer] [id number] 11/25/2023 S220GH / / [id number] Lipiodol Injection - [id number] Implanted:Qty: 1 on 03/28/2022 at [facility] 03/01/2023 [id number] 01-2 / / [id number] Syr Pf 2ml Embospheres 100-300 - [id number] Implanted:Qty: 1 on 03/28/2022 at [facility] [employer] [id number] 08/31/2024 S220GH / / [id number] Clareon Iol Aspheric Hydrophobic Acrylic Iol Implanted:Qty: 1 on 04/02/2023 by Cody Gonzalez DO at [facility] Right: Eye JAZMIN 11/12/2025 CNA0T0 / [id number] / Syr Pf 2ml Embospheres 100-300 - [id number] Implanted:Qty: 1 on 06/11/2024 at [facility] [employer] [id number] 01/02/2027 S220GH / / [id number] Cath Diag Cobra 2 [id number] - [id number] Implanted:Qty: 1 on 06/11/2024 at [facility] [employer] [id number] 10/06/2026 [id number] / / [id number] documented as of this encounter Advance Directives Documents on File Type Date Recorded 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
--- OUTSIDE RECORDS SUMMARY | 2024-07-05 06:48 | External Medical Summary ---
Author Name Unknown Address Unknown Organization K01:LABORATORY [address] [facility] [address] Laboratory Report Ordering Provider Test Date Status CHELSEY BISWAS 06/30/2024 10:15:00 Final Observation Date Value Abnormality Reference (Units ) Status WBC, Total 06/30/2024 10:15:00 3.32 Below low normal 4.00-10.80 (K/uL) Final RBC 06/30/2024 10:15:00 3.05 4.50-5.25 (M/uL) Final Hemoglobin 06/30/2024 10:15:00 9.6 Below low normal 14.0-16.8 (g/dL) Final HCT 06/30/2024 10:15:00 30.1 Below low normal 40.0-48.4 (%) Final MCV 06/30/2024 10:15:00 98.7 82.0-99.5 (fL) Final MCH 06/30/2024 10:15:00 31.5 27.0-34.0 (pg) Final MCHC 06/30/2024 10:15:00 31.9 32.0-36.0 (g/dL) Final RDW 06/30/2024 10:15:00 19.8 11.5-15.5 (%) Final Platelets 06/30/2024 10:15:00 77 Below low normal 140-400 (K/uL) Final MPV 06/30/2024 10:15:00 13.4 6.6-11.1 (fL) Final Nucleated erythrocytes/100 leukocytes [Ratio] in Blood by Automated count 06/30/2024 10:15:00 0 <=0 (/100 WBCs) Final Performing Location LABORATORY [facility] [place] - [address] [facility] [address]
--- OUTSIDE RECORDS SUMMARY | 2024-07-05 06:49 | External Medical Summary | Summary of Care ---
Author Name Unknown Organization [facility] Address [address] [place] [address] Phone [phone] Care Team Providers Care Sourcer Name Role Phone VangieKristen Caryn SANDOVAL Primary Care Provider [phone] Reason for Visit * Reason Comments Follow Up * Evaluate & Treat - Unlimited Visits (Within 10 days (routine)) - Authorized Specialty Diagnoses / Procedures Referred By Contac t Referred To Contact Hematology/Oncology / Hematology Oncology Diagnoses Hepatocellular carcinoma (HCC) Cirrhosis of liver with ascites, unspecified hepatic cirrhosis type (HCC) Chavez Sapp MD [address] [place] [address] Referral ID Status Reason Start Date Expiration Date Visits Requested Visits Authorized [id number] Authorized Specialty Services Required 04/08/2024 [id number] Encounter Details Date Type Department Care Team (Late st Contact Info) Description 06/23/2024 2:00 PM EDT Office Visit Hematology/Oncology [facility] [place] [address] [facility] [place] [phone] Ayaka Tatum CRNP [address] [place] [id number] Iron deficiency anemia due to chronic blood loss*; Pancytopenia (HCC); Liver cell carcinoma (HCC); Portal vein thrombosis; Prostate cancer (HCC) Allergies No known active allergiesdocumented as of this encounter (statuses as of 06/25/2024) Medications Medication Sig Dispensed Refills Start Date End Date Status EllenDavidreyna Allredjeffrey In Vitro Strip (Glucose Blood)Indications:Ty pe 2 [...] as of this encounter (statuses as of 06/25/2024) Active Problems Problem Noted Date Diagnosed Date [...] as of this encounter (statuses as of 06/25/2024) Resolved Problems Problem Noted Date Diagnosed Date [...] as of this encounter (statuses as of 06/25/2024) Immunizations Name Administration Dates Next Due COVID-19 mRNA, LNP-s, No Pre serve, 2-Dose Series (Blue Box) 03/08/2021,02/15/2021 HepA Inact/HepB Recomb>=18yrs old 12/04/2019,04/2019,05/20/2019 11/19/2019 PPD 06/18/2017, 3,01/09/2012,0306/2011 Pneumococcal Conjugate Vacc, 13 Valent (Prevnar) 05/01/2017 Pneumococcal Polysaccharide PPV23 (Pneumovax) 08/28/2022,10/25/2015,07/14/2012 Season Influenza, Quad, PF, Adjuvanted, 65+ Yrs, IM (FLUAD) 10/07/2020(Deferred: Patient Refused - pt says he already had his shot last month at [facility] Handy Lyons and Mckinley Cobian made [...] Sign Reading Time Taken Comments Blood Pressure 148/75 06/23/2024 1:48 PM EDT Pulse 67 06/23/2024 1:48 PM EDT Temperature 36.4 C (97.6 F) 06/23/2024 1:48 PM ED T Respiratory Rate 15 06/23/2024 1:48 PM EDT Oxygen Saturation 98% 06/23/2024 1:48 PM EDT Inhaled Oxygen Concentration - - Weight 74.4 kg (164 lb) 06/23/2024 1:48 PM EDT Height - - Body Mass Index 23.53 06/05/2024 10:44 AM EDT documented in this encounter Functional [...] of this encounter Progress Notes * Ayaka Tatum, JEFF - 06/23/2024 2:00 PM EDT Images from the original note were not included. Hematology/[facility]cology [facility] [place] [address] [place], [place] [address] Name: Luis Hale Date: 06/23/2024 CHIEF COMPLAINT: Luis Hale is a 74 year old male patient of Dr. Rodriguez Keyla here today for f/u visit today. From Patient chart confirmed with patient. HEMATOLOGY/ONCOLOGY DIAGNOSIS: Pancytopenia UDAY d/t radiation proctitis and chronic hematuria HCC Portal vein thrombosis History of prostate cancer TREATMENT HISTORY: TIPs was completed on 10/07/20. Revision Jan 2021. Left hepatic lobe LIRADS 5 lesion bland embolization on 04/18/2021 Completed radiation therapy to the prostate 04/05/21 Received his final Eligard injection in January of 2022 Right hepatic lobe mass bland embolization 02/21/22 Paracentesis every two weeks Frequent blood transfusion. Last 05/28/24 He was also treated multiple times with the iron infusion - last received IV Monoferric 01/29/24 Transarterial bland embolization of hepatic tumors in segments II and IVB/V 06/11/24. CURRENT TREATMENT: Continue cbc/diff every two weeks with PRBC transfusion PRN for Hgb <7 or <8 if symptomatic Oral iron 65 mg one tablet daily ONCOLOGY HISTORY: Patient with complicated past medical history including DM II, GAVE, cirrhosis s/p TIPS, esophagealvarices, psoriasis, FOFANA, CKD III, prostate cancer, HCC, portal vein thrombosis was referred for evaluation of pancytopenia and portal vein thrombosis. Patient was recently diagnosed of prostate cancer and biopsy done which is consistent with adenocarcinoma. Cleveland score was 3+3 and PSA was 15.26. [...] for bland embolization left hepatic lobe at [facility] which was done on 04/18/2021. He also [...] pain w/ exertion. He was admitted to [facility] and tx for anemia. He was having [...] blood loss was minimal. Interval History: Patient hospitalized at [facility] 05/20/24 - 05/30/24. HISTORY OF PRESENT ILLNESS: Luis Hale is a 74 year old male with a history as outlined above. Currently here for f/u visit today. Patient had liver lesion embolization completed, feels like it went well. Has been taken off of the liver transplant list. Is hoping he can still have hyperbaric oxygen treatment to the bladder.Hematuria has significantly improved since fulguration. Feels at baseline today. Trying to hang in there mentally. Doing paint by number to try and keep his mind occupied. Has very good family support. Continues to feel very weak and tired but some days are better than others. Rectal bleeding has pretty much stopped. Denies any CP or SOB. Weight is stable. Continues iron supplement once daily. Tolerating well. Past Medical History: Diagnosis Date Acquired thrombocytopenia (HCC) 09/05/2017 Allergic rhinitis Anemia 12/2023 required transfusion Anxiety and depression Aortic valve sclerosis 02/01/2023 Benign neoplasm of colon 04/16/2013 COLONOSCOPY FLEXIBLE PROXIMAL DIAGNOSTIC performed by Salvador Lopez MD at ENDOSCOPY [facility], adenomatous polyps repeat colonoscopy in 3 [...] performed by Cody Gonzalez DO at OR [facility] CATARACT SURGERY,COMPLEX Left 04/23/2023 LEFT EXTRACAPSULAR CATARACT REMOVAL COMPLEX WITH IOL performed by Cody Gonzalez DO at OR [facility] COLONOSCOPY 08/27/2005 lock haven/hemorrhoids non internal COLONOSCOPY, DIAGNOSTIC (RECTUM) 04/16/2013 COLONOSCOPY FLEXIBLE PROXIMAL DIAGNOSTIC performed by Salvador Lopez MD at ENDOSCOPY [facility], adenomatous polyps repeat colonoscopy in 3 years COLONOSCOPY, DIAGNOSTIC (RECTUM) 05/03/2016 adenomatous polyps, diverticulosis, repeat 5 yrs/COLONOSCOPY FLEXIBLE PROXIMAL DIAGNOSTIC performedby Salvador Lopez MD at ENDOSCOPY [facility] COLONOSCOPY, DIAGNOSTIC (RECTUM) 07/19/2020 adenomatous & hyperplastic polyps, diverticulosis, repeat 3 yrs / [facility] COLONOSCOPY, DIAGNOSTIC (RECTUM) 11/30/2021 mild [...] EVACUATION OF CLOTS performed by Luis Whitehead MDat OR [facility] CYSTOSCOPY/TREAT LGE BLADDER TUMOR N/A 05/09/2024 CYSTOURETHROSCOPY WITH FULGURATION LARGE BLADDER TUMOR performed by Luis Whitehead MD atOR [facility] CYSTOSCOPY/TREAT MED BLADDER TUMOR N/A 01/30/2024 CYSTOURETHROSCOPY WITH FULGURATION MEDIUM BLADDER TUMOR performed by Frank Peraza MD at OR [facility] EGD, FLEXIBLE, DIAGNOSTIC 07/22/2014 GE varices oozing blood, gastric polyp/ESOPHAGOGASTRODUODENOSCOPY (EGD), FLEXIBLE, TRANSORAL, DIAGNOSTIC performed by Juaquin Arrington MD at ENDOSCOPY [facility] EGD, FLEXIBLE, DIAGNOSTIC 07/23/2014 ESOPHAGOGASTRODUODENOSCOPY (EGD), FLEXIBLE, TRANSORAL, DIAGNOSTIC performed by Sophie Merino MD at ENDOSCOPY [facility] EGD, FLEXIBLE, DIAGNOSTIC 06/02/2019 eso & gastric varices, gastric polyps/ESOPHAGOGASTRODUODENOSCOPY (EGD), FLEXIBLE, TRANSORAL, DIAGNOSTIC performed by Salvador Lopez MD at ENDOSCOPY [facility] EGD, FLEXIBLE, DIAGNOSTIC 03/25/2020 portal hypertensive gastropathy, esophageal varices / INPT [facility] EGD, FLEXIBLE, DIAGNOSTIC 07/19/2020 eso varices, portal hypertensive gastropathy, repeat 3 mo / [facility] EGD, FLEXIBLE, DIAGNOSTIC 10/25/2020 Portal hypertensive gastropathy, eso varices / [facility] EGD, FLEXIBLE, DIAGNOSTIC 08/202222 Grade I esophageal varices / [facility] EGD, FLEXIBLE, DIAGNOSTIC N/A 09/11/2022 grade II esophageal varices/gastric antral vascular ectasia, treated with APC/repeat 3 months/EGD/RI EGD, FLEXIBLE, DIAGNOSTIC N/A 11/07/2022 grade III esophageal varices, banded/gastric antral vascular ectasia/repeat 2 months/EGD/RI EGD, FLEXIBLE, DIAGNOSTIC N/A 02/01/2023 [facility]< egd. / single G2 varix, banded and varices eradicated / no specimens collected / egd in 1 to 2 months / EGD, FLEXIBLE, DIAGNOSTIC N/A 08/09/2023 portal hypertensive gastropathy/repeat 1 year/EGD/RI EGD, FLEXIBLE, DIAGNOSTIC 05/22/2023 GAVE, repeat 4-6 wks / [facility] IR ARTERIAL EMBOLIZATION 06/11/2024 IR CANCER THERASPHERE EMBOLIZATION 03/28/2022 IR EMBOLIZATION Left 04/18/2021 IMAGING SUPERVISION & INTERPRETATION TRANSCATHETER THERAPY, EMBOLIZATION performed by Kevin Lim DO at OR [facility] IR EMBOLIZATION ARTERIAL NON HEMMORHAGE Left 02/21/2022 EMBOLIZATION ARTERIAL; SUPERVISION & INTERPRETATION performed by Kevin Lim DO at OR [facility] IR EMBOLIZATION ARTERIAL NON HEMMORHAGE Left 06/05/2022 EMBOLIZATION ARTERIAL; SUPERVISION & INTERPRETATION performed by Kevin Lim DO at OR [facility] IR VENOUS TIPS 10/07/2020 REMOVAL OF TONSILS, UNDER AGE 12 age 6-7 Tonsils Removal,<12 Y/O SIGMOIDOSCOPY, DIAGNOSTIC 04/12/2022 radiation proctitis, diverticulosis / [facility] TIPS, REVISION N/A 01/24/2021 REVISION TRANSVENOUS INTRAHEPATIC PORTOSYSTEMIC SHUNT performed by Kevin Lim DO at OR [facility] TIPS, REVISION Right 10/19/2022 REVISION TRANSVENOUS INTRAHEPATIC PORTOSYSTEMIC SHUNT performed by Howie Valdovinos MD at OR [facility] TIPS, REVISION Right 02/20/2023 REVISION TRANSVENOUS INTRAHEPATIC PORTOSYSTEMIC SHUNT performed by Kevin Lim DO at OR [facility] 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 Socioeconomic History Marital status: Spouse [...] No Self-Exams Not Asked 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 (Patient not taking: Reported on 06/05/2024) High Potency Iron 65 MG Oral Tablet [...] SoloStar 100 UNIT/ML Subcutaneous Solution Pen-injector once. Albumin Human 25 % Intravenous Solution If [...] 60 minute each unit 300 mL 100 Mag64 64 MG Oral Tablet Delayed Release [...] taking: Reported on 06/05/2024) 60 Packet 5 oxyBUTYnin Chloride 5 MG Oral Tablet (Ditropan) Take 1 tablet by mouth every 8 hours as needed for bladder spasms. (Patient not taking: Reported on 06/05/2024) 30 Tablet 0 Spironolactone 100 MG Oral Tablet (Aldactone) Take 1 Tablet by mouth in the morning. No current facility-administered medications for this visit. REVIEW OF SYSTEMS: See HPI - otherwise negative OBJECTIVE: Filed Vitals: 06/23/24 1348 BP: 148/75 Pulse: 67 Resp: 15 Temp: 36.4 C (97.6 F) TempSrc: Tympanic SpO2: 98% Weight: 74.4 kg (164 lb) Wt Readings from Last 5 Encounters: 06/23/24 74.4 kg (164 lb) 05/19/24 84.8 kg (187 lb) 05/12/24 86.6 kg (190 lb 14.7 oz) 04/07/24 83.6 kg (184 lb 4.8 oz) 03/26/24 84.3 kg (185 lb 14.4 oz) PHYSICAL EXAM: ECOG: Performance Status 2 = 60-70% Bedtime, < 50% daytime General Appearance: No acute distress Lungs/Thorax: Normal respiratory effort Extremities: No edema Neurologic: alert and oriented x 4, ambulates with walker LABS: Results for orders placed or performed in visit on 06/23/24 CBC Result Value Ref Range WBC 2.42 (L) 4.00 - 10.80 K/uL RBC 2.36 4.50 - 5.25 M/uL HGB 7.7 (L) 14.0 - 16.8 g/dL HCT 23.7 (L) 40.0 - 48.4 % MCV 100.4 82.0 - 99.5 fL MCH 32.6 27.0 - 34.0 pg MCHC 32.5 32.0 - 36.0 g/dL RDW 19.3 11.5 - 15.5 % PLT 54 (L) 140 - 400 K/uL MPV nRBCs 0 <=0 /100 WBCs DIFFERENTIAL, AUTOMATED Result Value Ref Range WBC 2.42 (L) 4.00 - 10.80 K/uL Neutrophils % 65.7 40.0 - 75.0 % Lymphocytes % 19.4 18.0 - 42.0 % Monocytes % 5.4 1.0 - 11.0 % Eosinophils % 8.7 (H) 0.0 - 6.0 % Basophils % 0.4 0.0 - 2.0 % Immature Granulocytes % 0.4 0.0 - 2.0 % Absolute Neutrophils 1.59 (L) 1.80 - 7.70 K/uL Absolute Lymphocytes 0.47 (L) 1.00 - 4.80 K/ul Absolute Monocytes 0.13 0.00 - 1.10 K/uL Absolute Eosinophils 0.21 0.00 - 0.70 K/uL Absolute Basophils 0.01 0.00 - 0.20 K/uL Absolute Immature Granulocytes 0.01 0.00 - 0.20 K/uL *Note: Due to a large number of results and/or encounters for the requested time period, some results have not been displayed. A complete set of results can be found in Results Review. IMPRESSION/PLAN: Pancytopenia - cause multifactorial including liver cirrhosis, splenomegaly and chronic blood loss UDAY d/t radiation proctitis and chronic hematuria HCC Portal vein thrombosis History of prostate cancer Admitted at [facility] 05/20/24 - 05/30/24. Received 2 units PRBC. Last transfusion 05/28/24. S/P bladder fulguration at [facility] earlier in May. Hematuria has now significantly improved. Also hoping to proceed with hyperbaric oxygen therapy. Continue ferrous sulfate one tablet daily. Continue cbc/diff weekly per GML with PRBC transfusion PRN for Hgb <7 or <8 if symptomatic. Will update CMP, ferritin and iron screen on 07/07/24. Portal vein thrombosis occurs within the main portal vein and intrahepatic portal branches. In liver cirrhosis, especially in advanced stages, portal vein thrombosis is one of the most common complications. With significant other comorbidities and risk of bleeding, the best option will be to followthe patient clinically. S/P transarterial bland embolization of hepatic tumors in segments II and IVB/V 06/11/24 per IR. Next MRI scheduled 09/11/24. Next planning to treat renal lesion as well and to interrogate the TIPS. Unfortunately has been removed from liver transplant list. Is planning to establish with [facility] palliative care as outpatient. Has completed treatment for prostate cancer. Continue to follow with Urology. PSA annually. Continue to f/u w/ GI regarding HCC and FOFANA cirrhosis with ascites. Paracentesis PRN. RTC in three months with physician JEFF Olson documented in this encounter Nursing Notes * Sue Sanchez MED ASSIST - 06/23/2024 1:53 PM EDT Patient identifed by name and birthdate Do [...] it for you? ALREADY ACTIVE Filed Vitals: 06/23/24 1348 BP: 148/75 Pulse: 67 Resp: 15 Temp: 36.4 C (97.6 F) TempSrc: Tympanic SpO2: 98% Weight: 74.4 kg (164 lb) Patient was instructed to not get up [...] Care Team (Late st Contact Info) Description 06/26/2024 2:00 PM EDT Office Visit [facility] [address] [address] Kristen Vences DO [address] [place] [address] 06/30/2024 7:00 AM EDT Laboratory Lab Mobile Phlebotomy [place] [id number] [place], [place] [address] [facility] [address] [place], [place] [address] 07/07/2024 7:00 AM EDT Laboratory Lab Mobile Phlebotomy [facility] [address] [place], [place] [address] [facility] [address] [place] [address] 07/08/2024 1:00 PM EDT Office Visit [facility]ph[facility] [address] [place], [place] [address] Franki Herbert MD [address] [place] [address] 07/09/2024 9:40 AM EDT Office Visit [facility] [address] [place] [address] Kristen Vences DO [address] [facility] [address] 07/14/2024 7:00 AM EDT Laboratory Lab Mobile Phlebotomy [facility] [address] [place], [place] [address] [facility] [address] [place] [address] 07/21/2024 7:00 AM EDT Laboratory Lab Mobile Phlebotomy [facility] [address] [place], [place] [address] [facility] [address] [place] [address] 07/28/2024 7:00 AM EDT Laboratory Lab Mobile Phlebotomy [facility] [address] [place], [place] [address] [facility] [address] [place] [address] 07/28/2024 2:00 PM EDT Office Visit NephrologyGeorge [address] [employer], [place] [address] Franki Herbert MD [address] [place] [address] 08/04/2024 7:00 AM EDT Laboratory Lab Mobile Phlebotomy [facility] [address] [place], [place] [address] [facility] [address] [place], [place] [address] 08/11/2024 7:00 AM EDT Laboratory Lab Mobile Phlebotomy [facility] [address] [place], [place] [address] [facility] [address] [place], [place] [address] 08/18/2024 7:00 AM EDT Laboratory Lab Mobile Phlebotomy [facility] [address] [place], [place] [address] [facility] [address] [place], [place] [address] 08/20/2024 10:15 AM EDT Office Visit Ophthalmology, [facility] [address] [facility] [address] Cody Gonzalez, DO [address] [place] [address] 08/25/2024 7:00 AM EDT Laboratory Lab Mobile Phlebotomy [facility] [address] [place], [place] [address] [facility] [address] [place], [place] [address] 09/01/2024 7:00 AM EDT Laboratory Lab [facility] Phlebotomy [facility] [address] [place], [place] [address] [facility] [address] [place], [place] [address] 09/08/2024 7:00 AM EDT Laboratory Lab [facility] Phlebot[facility] [address] [place], [place] [address] [facility] [address] [place] [address] 09/11/2024 3:00 PM EDT Imaging Radiology [address] 132 [facility] [place] [address] 09/15/2024 7:00 AM EDT Laboratory Lab [facility] Phlebotomy [facility] [address] [place] [address] [facility] [address] [facility] [place], [place] [address] 09/22/2024 7:00 AM EDT Laboratory Lab Mobile Phlebotomy [facility] [address] [place] [place] [address] [facility] [address] [place], [place] [address] 09/28/2024 2:30 PM EDT Office Visit Hematology/Oncology [facility] [address] [facility] [place], [place] [phone] Ayaka Tatum CRNP [address] [place] [address] [place] [address] 09/29/2024 7:00 AM EDT Laboratory Lab Mobile Phlebotomy [facility] [address] [place] [address] [facility] [address] [place] [address] 10/06/2024 7:00 AM EST Laboratory Lab [facility] [address] [place] [address] [facility] [address] [place] [address] 10/12/2024 10:20 AM EST Office Visit Pulmonary Medicine, [facility] [address] [facility] [place] [address] Jordan Stanley MD [address] [place] [address] [address] 10/13/2024 7:00 AM EST Laboratory Lab Mobile Phlebotomy [facility] [address] [place] [address] [facility] [address] [place] [address] 10/20/2024 7:00 AM EST Laboratory Lab Mobile Phlebotomy [facility] [address] [place] [address] [facility] [address] [place] [address] 10/27/2024 7:00 AM EST Laboratory Lab Mobile Phlebotomy [facility] [address] [place] [address] [facility] [address] [employer] [place] [address] 10/30/2024 10:00 AM EST Office Visit Urology Lynnette Fitzpatrick [address] [facility] [address] [place] [address] [address] Frank Peraza MD [address] [place] [address] Scheduled Orders Name Type Priority Associated Diagnoses Orde r Schedule COMPREHENSIVE METABOLIC PANEL Lab STAT Iron deficiency anemia due to chronic blood loss Pancytopenia (HCC) Liver cell carcinoma (HCC) Portal vein thrombosis Prostate cancer (HCC) Expected: 07/07/2024 (Approximate), Expires: 06/25/2025 FERRITIN Lab STAT Iron deficiency anemia due to chronic blood loss Pancytopenia (HCC) Liver cell carcinoma (HCC) Portal vein thrombosis Prostate cancer (HCC) Expected: 07/07/2024 (Approximate), Expires: 06/25/2025 IRON SCREEN, INCLUDING TIBC Lab STAT Iron deficiency anemia due to chronic blood loss Pancytopenia (HCC) Liver cell carcinoma (HCC) Portal vein thrombosis Prostate cancer (HCC) Expected: 07/07/2024 (Approximate), Expires: 06/25/2025 Scheduled Procedures Name Priority Associated Diagnoses Date/Ti [...] Additional history exists CKD PHOS USE SMARTSET 92747 05/19/202505/02, 05/08/2024, 04/07/2024, Additional history exists Diabetic Foot Exam 05/19/2025 05/19/2024, 0 03/06/2023, 01/03/2022, Additional history exists CKD HGB USE SMARTSET 01836 06/23/202506/23, 06/23/2024, 06/11/2024, Additional history exists Sigmoidoscopy [...] this encounter Medical Devices 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 Syr Pf 2ml Embospheres 100-300 - [id number] Implanted:Qty: 1 on 04/18/2021 by Kevin Lim DO at OR [facility] Left: Abdomen [employer] [id number] 11/25/2023 S220GH / / [id number] Lipiodol Injection - [id number] Implanted:Qty: 1 on 03/28/2022 at [facility] [employer] 03/01/2023 [id number] 01-2 / / [id number] Syr Pf 2ml Embospheres 100-300 - [id number] Implanted:Qty: 1 on 03/28/2022 at [facility] [employer] [id number] 08/31/2024 S220GH / / [id number] -5 Clareon Iol Aspheric Hydrophobic Acrylic Iol Implanted:Qty: 1 on 04/02/2023 by Cody Gonzalez DO at OR [facility] Right: Eye JAZMIN 11/12/2025 [id number] / [id number] / Syr Pf 2ml Embospheres 100-300 - [id number] Implanted:Qty: 1 on 06/11/2024 at [facility] [employer] [id number] 01/02/2027 S220GH / / [id number] Cath Diag Cobra 2 [id number] - [id number] Implanted:Qty: 1 on 06/11/2024 at [facility] [employer] [id number] 10/06/2026 H78 [id number] / / [id number] documented as of this encounter Visit Diagnoses Diagnosis Iron deficiency anemia due to chronic blood loss- Primary Iron deficiency anemia secondary to blood loss (chronic) Pancytopenia (HCC) Other pancytopenia Liver cell carcinoma (HCC) Malignant neoplasm of liver, primary Portal vein thrombosis Prostate cancer (HCC) Malignant neoplasm of prostate documented in this encounter Advance Directives Documents on File Type Date Recorded 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
--- OUTSIDE RECORDS SUMMARY | 2024-07-05 06:49 | External Medical Summary | Summary of Care ---
Author Name Unknown Organization [facility] Address [address] [address] Phone [phone] Care Team Providers Care Wood Carving Machine Operator Name Role Phone Kristen Vences DO Primary Care Provider [phone] Reason for Visit * Reason Onset Date Comments Hospital Follow-Up Pt here for h ospital f/u apt, has question regarding dealing with insulins. Hospital Follow-Up 06/26/2024 Encounter Details Date Type Department Care Team (Late st Contact Info) Description 06/26/2024 2:00 PM EDT Office Visit [facility] [address] [facility] [place] [address] Kristen Vences DO [address] [facility] [place] [address] Hospital discharge follow-up*; Type 2 diabetes mellitus with stage 3a chronic kidney disease, with long-term current use of insulin (HCC) Allergies No known active allergiesdocumented as of this encounter (statuses as of 06/26/2024) Medications Medication Sig Dispensed Refills Start Date [...] as of this encounter (statuses as of 06/26/2024) Active Problems Problem Noted Date Diagnosed Date [...] as of this encounter (statuses as of 06/26/2024) Resolved Problems Problem Noted Date Diagnosed Date [...] as of this encounter (statuses as of 06/26/2024) Immunizations Name Administration Dates Next Due COVID-19 [...] Sign Reading Time Taken Comments Blood Pressure 122/58 06/26/2024 1:59 PM EDT Pulse 65 06/26/2024 1:59 PM EDT Temperature 36.6 C (97.8 F) 06/26/2024 1:59 PM ED T Respiratory Rate 16 06/26/2024 1:59 PM EDT Oxygen Saturation - - Inhaled Oxygen Concentration - - Weight 72.1 kg (159 lb) 06/26/2024 1:59 PM EDT Height - - Body Mass Index 22.81 06/05/2024 10:44 AM EDT documented in this [...] of this encounter Progress Notes * Kristen Vences, - 06/26/2024 1:57 PM EDT Subjective: Luis Hale is a 74 year old male. Chief Complaint Patient presents with Hospital Follow-Up Pt here for hospital f/u apt, has question regarding dealing with insulins. Hospital Follow-Up There are no exam notes on file for this visit. HPI: This is a 74 year old male with PMHx as below presents with follow up Admitted 06/12/24 Discharged 06/15/24 Went to ER with chest pain/epigastric pain, hyperglycemia DM regimen lantus 25units at night Last A1c 04/2024 5.6 Ok to resume lasix and aldactone 06/17 Will be consulting with palliative med - not going into hospice at this time Medicare will no longer care for in home visits due to multiple hospital visits Pt with son today Overall back to baseline BS have been in normal range Son states that he ate sugary foods prior to admission Recent visit with hematology - had labs done and is to have repeat labs GI cirrhosis, HCC, NAFLD - Q2 week paracentesis schedule Hematology prostate ca, pancytopenia, HCC Transplant liver Pulmonary RLD, PHTN Urology prostate ca Echo - grade 2 diastolic dysfunction overdue to see cardiology Health Maintenance Due Topic Date Due Depression Screening 05/03/2022 COVID-19 Vaccine ( season) 2023 Diabetic Eye Exam 01/17/2024 Colorectal Cancer Screening 08/09/2024 Patient Active Problem [...] 1 Packet before bedtime. 60 Packet 5 High Potency Iron 65 MG Oral Tablet [...] mouth in the morning. 30 Tablet 6 Spironolactone 100 MG Oral Tablet (Aldactone) Take 1 Tablet by mouth in the morning. Multivitamin Men 50+ Oral Tablet Take by mouth. Cholestyramine 4 GM Oral Packet (Questran) Take [...] taking: Reported on 06/05/2024) 30 Tablet 0 No current facility-administered medications for this visit. Past Medical History: Diagnosis Date Acquired thrombocytopenia (HCC) 09/05/2017 Allergic rhinitis Anemia 12/2023 required transfusion Anxiety and depression Aortic valve sclerosis 02/01/2023 Benign neoplasm of colon 04/16/2013 COLONOSCOPY FLEXIBLE PROXIMAL DIAGNOSTIC performed by Salvador Lopez MD at ENDOSCOPY [facility], adenomatous polyps repeat colonoscopy in [...] performed by Cody Gonzalez DO at OR [facility] CATARACT SURGERY,COMPLEX Left 04/23/2023 LEFT EXTRACAPSULAR CATARACT REMOVAL COMPLEX WITH IOL performed by Cody Gonzalez DO at OR [facility] COLONOSCOPY 08/27/2005 lock haven/hemorrhoids non internal COLONOSCOPY, DIAGNOSTIC (RECTUM) 04/16/2013 COLONOSCOPY FLEXIBLE PROXIMAL DIAGNOSTIC performed by Salvador Lopez MD at ENDOSCOPY [facility], adenomatous polyps repeat colonoscopy in 3 years COLONOSCOPY, DIAGNOSTIC (RECTUM) 05/03/2016 adenomatous polyps, diverticulosis, repeat 5 yrs/COLONOSCOPY FLEXIBLE PROXIMAL DIAGNOSTIC performedby Salvador Lopez MD at ENDOSCOPY [facility] COLONOSCOPY, DIAGNOSTIC (RECTUM) 07/19/2020 adenomatous & hyperplastic polyps, diverticulosis, repeat 3 yrs / [facility] COLONOSCOPY, DIAGNOSTIC (RECTUM) 11/30/2021 mild XRT proctitis, diverticulosis / COLONOSCOPY FLEXIBLE PROXIMAL DIAGNOSTIC performed by Barbara March DO at ENDOSCOPY [facility] COLONOSCOPY, DIAGNOSTIC (RECTUM) 02/01/2022 Mild XRT proctitis / COLONOSCOPY FLEXIBLE PROXIMAL DIAGNOSTIC performed by Barbara March DO at ENDOSCOPY [facility] COLONOSCOPY, DIAGNOSTIC (RECTUM) N/A 11/07/2022 poor prep/diverticulosis sigmoid colon/rectal angioectasias consistent with radiation proctopathy/Colonoscopy/[place] COLONOSCOPY, DIAGNOSTIC (RECTUM) N/A 08/09/2023 poor prep/moderate diverticulosis/hemorrhoids/biopsies show adenomatous and hyperplastic polyps/recall 1 years/Colonoscopy/[place] ABDOMEN W IV AND W ORAL CONTRAST 01/10/2010 CYSTOSCOPY, REMOVAL OF CLOTS N/A 05/09/2024 CYSTOURETHROSCOPY WITH IRRIGATION AND EVACUATION OF CLOTS performed by Luis Whitehead MDat [facility] CYSTOSCOPY/TREAT LGE BLADDER TUMOR N/A 05/09/2024 CYSTOURETHROSCOPY WITH FULGURATION LARGE BLADDER TUMOR performed by Luis Whitehead MD [facility] CYSTOSCOPY/TREAT MED BLADDER TUMOR N/A 01/30/2024 CYSTOURETHROSCOPY WITH FULGURATION MEDIUM BLADDER TUMOR performed by Frank Peraza MD at OR [facility] EGD, FLEXIBLE, DIAGNOSTIC 07/22/2014 GE varices oozing blood, gastric polyp/ESOPHAGOGASTRODUODENOSCOPY (EGD), FLEXIBLE, TRANSORAL, DIAGNOSTIC performed by Juaquin Arrington MD at ENDOSCOPY [facility] EGD, FLEXIBLE, DIAGNOSTIC 07/23/2014 ESOPHAGOGASTRODUODENOSCOPY (EGD), FLEXIBLE, TRANSORAL, DIAGNOSTIC performed by Sophie Merino MD at [facility] EGD, FLEXIBLE, DIAGNOSTIC 06/02/2019 eso & gastric varices, gastric polyps/ESOPHAGOGASTRODUODENOSCOPY (EGD), FLEXIBLE, TRANSORAL, DIAGNOSTIC performed by Salvador Lopez MD at ENDOSCOPY [facility] EGD, FLEXIBLE, DIAGNOSTIC 03/25/2020 portal [...] antral vascular ectasia, treated with APC/repeat 3 months/EGD/OK EGD, FLEXIBLE, DIAGNOSTIC N/A 11/07/2022 grade III esophageal varices, banded/gastric antral vascular ectasia/repeat 2 months/EGD/OK EGD, FLEXIBLE, DIAGNOSTIC N/A 02/01/2023 [facility]< egd. / single G2 varix, banded and varices eradicated / no specimens collected / egd in 1 to 2 months / EGD, FLEXIBLE, DIAGNOSTIC N/A 08/09/2023 portal hypertensive gastropathy/repeat 1 year/EGD/[place] EGD, FLEXIBLE, DIAGNOSTIC 05/22/2023 GAVE, repeat 4-6 wks / [facility] IR ARTERIAL EMBOLIZATION 06/11/2024 IR CANCER THERASPHERE EMBOLIZATION 03/28/2022 IR EMBOLIZATION Left 04/18/2021 IMAGING SUPERVISION & INTERPRETATION TRANSCATHETER THERAPY, EMBOLIZATION performed by Kevin Lim DO at OR [facility] IR EMBOLIZATION ARTERIAL NON HEMMORHAGE Left 02/21/2022 EMBOLIZATION ARTERIAL; SUPERVISION & INTERPRETATION performed by Kevin Lim DO at OR [facility] IR EMBOLIZATION ARTERIAL NON HEMMORHAGE Left 06/05/2022 EMBOLIZATION ARTERIAL; SUPERVISION & INTERPRETATION performed by Kevin Lim DO at OR [facility] IR VENOUS TIPS 10/07/2020 REMOVAL OF TONSILS, UNDER AGE 12 age 6-7 Tonsils Removal,<12 Y/O SIGMOIDOSCOPY, DIAGNOSTIC 04/12/2022 radiation proctitis, diverticulosis / [facility] TIPS, REVISION N/A 01/24/2021 REVISION TRANSVENOUS INTRAHEPATIC PORTOSYSTEMIC SHUNT performed by Kevin Lim DO at OR [facility] TIPS, REVISION Right 10/19/2022 REVISION TRANSVENOUS INTRAHEPATIC PORTOSYSTEMIC SHUNT performed by Howie Valdovinos MD at OR [facility] TIPS, REVISION Right 02/20/2023 REVISION TRANSVENOUS INTRAHEPATIC PORTOSYSTEMIC SHUNT performed by Kevin Lim DO at OR [facility] Review of patient's allergies indicates: No [...] Heart disease Brother Peter Other (Other) Brother Arik Agent [place] exposure Neurological Disorder Daughter Joan epilepsy No [...] No Self-Exams Not Asked 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 Wt Readings from Last 3 Encounters: 06/26/24 72.1 kg (159 lb) 06/23/24 74.4 kg (164 lb) 05/19/24 84.8 kg (187 lb) Results for orders placed or performed in [...] in Results Review. OBJECTIVE: Physical Exam: BP 122/58 | Pulse 65 | Temp 36.6 C (97.8 F) (Tympanic) | Resp 16 | Wt 72.1 kg (159 lb) | BMI 22.81 kg/m | BSA 1.89 m General: alert, healthy, and no distress Head: Normocephalic, No masses, lesions, tenderness or abnormalities Heart: regular rate & rhythm, pos cortney Lungs: lungs clear to auscultation Hospital discharge follow-up (Primary) - DISCH MED RECON CUR MED LIS Type 2 diabetes mellitus with stage 3a chronic kidney disease, with long-term current use of insulin (HCC) - HEMOGLOBIN A1C Kristen Vences DO documented in this encounter Plan of Treatment Upcoming Encounters Date Type Department Care Team (Late st Contact Info) Description 06/30/2024 7:00 AM EDT Laboratory Lab [facility] [address] [place] [address] [facility] [address] [place] [address] 07/07/2024 7:00 AM EDT Laboratory Lab [facility] [address] [place] [address] [facility] [address] [facility] [place] [address] 07/08/2024 1:00 PM EDT Office Visit NephGeorge serna [address] [place] [address] Franki Herbert MD [address] [place] [address] [address] 07/09/2024 9:40 AM EDT Office Visit Family Practice [facility] [address] [address] Kristen Vences Caryn, DO [address] [place] [address] 07/14/2024 7:00 AM EDT Laboratory Lab [facility] [address] [place], [place] [address] [facility] [address] [employer] [place], [place] [address] 07/21/2024 7:00 AM EDT Laboratory Lab [facility] [address] [place] [address] [facility] [address] [place], [place] [address] 07/28/2024 7:00 AM EDT Laboratory Lab [facility] [address] [place] [address] [facility] [address] [place], [place] [address] 07/28/2024 2:00 PM EDT Office Visit Nephrology, George Blankens[place] [address] [place], [place] [address] Franki Herbert MD [address] [place], [place] [address] 08/04/2024 7:00 AM EDT Laboratory Lab [facility] [address] [place] [address] [facility] [address] [employer] [place], [place] [address] 08/11/2024 7:00 AM EDT Laboratory Lab [facility] [address] [place] [address] [facility] [address] [place], [place] [address] 08/18/2024 7:00 AM EDT Laboratory Lab [facility] [address] [place], [place] [address] [facility] [address] [place], [place] [address] 08/20/2024 10:15 AM EDT Office Visit Ophthalmology, [facility] [address] [facility] [address] Cody Gonzalez, DO [address] [facility] [place] [address] 08/25/2024 7:00 AM EDT Laboratory Lab [facility] [address] [employer] [address] [place], [place] [address] [facility] [address] [place], [place] [address] 09/01/2024 7:00 AM EDT Laboratory [facility] [address] [place] [address] [facility] [address] [place], [place] [address] 09/08/2024 7:00 AM EDT Laboratory Lab [facility] [address] [place], [place] [address] [facility] [address] [place], [place] [address] 09/11/2024 3:00 PM EDT Imaging Radiology [facility] [address] [facility] [place] [address] 09/15/2024 7:00 AM EDT Laboratory Lab [facility] [address] [place], [place] [address] [facility] [address] [place], [place] [address] 09/22/2024 7:00 AM EDT Laboratory [facility] [address] [place], [place] [address] [facility] [address] [place], [place] [address] 09/28/2024 2:30 PM EDT Office Visit Hematology/Oncology [facility] [place] [address] [facility] [place], [place] [id number] Ayaka Tatum CRNP [address] [facility] [address] 09/29/2024 7:00 AM EDT Laboratory Lab [facility] [address] [place] [address] [facility] [address] [place], [place] [address] 10/06/2024 7:00 AM EST Laboratory Lab [facility] [address] [place] [address] [facility] [address] [address] [place] [address] 10/12/2024 10:20 AM EST Office Visit Pulmonary Medicine, [facility] [address] [facility] [place] [address] Jordan Stanley MD [address] [place] [address] 10/13/2024 7:00 AM EST Laboratory Lab [facility] [address] [place] [address] [facility] [address] [place] [address] 10/20/2024 7:00 AM EST Laboratory Lab [facility] [address] [place] [address] [facility] [address] [place], [place] [address] 10/27/2024 7:00 AM EST Laboratory Lab [facility] [address] [place] [address] [facility] [address] [place] [address] 10/30/2024 10:00 AM EST Office Visit Urology Lynnette Fitzpatrick [address] [place] [address] Frank Peraza MD [address] [place] [address] Scheduled Orders Name Type Priority Associated Diagnoses Orde r Schedule HEMOGLOBIN A1C Lab Routine Type 2 diabetes mellitus with stage 3a chronic kidney disease, with long-term current use of insulin (HCC) Ordered: 06/26/2024 Scheduled Procedures Name Priority Associated Diagnoses Date/Ti [...] 05/28/2023, Additional history exists GFR 12/12/2024 06/11/2024, 070 08/2024, 05/19/2024, Additional history exists Albumin/Creatinine Ratio 05/19/2025 024, 07/12/2023, 10/01/2022, Additional history exists CKD PHOS USE SMARTSET 64366 05/19/202505/02, 05/08/2024, 04/07/2024, Additional history exists Diabetic Foot Exam 05/19/2025 05/19/2024, 0 03/06/2023, 01/03/2022, Additional history exists CKD HGB USE SMARTSET 05037 06/23/202506/23, 06/23/2024, 06/11/2024, Additional history exists Sigmoidoscopy [...] this encounter Medical Devices Implanted Type Area Safety Instruction Police Officer Device Identifier Shelf Expiration Date Model / Serial / Lot Clareon Iol Aspheric Hydrophobic Acrylic Iol Implanted:Qty: 1 on 04/23/2023 by Cody Gonzalez DO at OR [facility] Lens Left: Eye 11/12/2025 [id number] / [id number] / Viatorr Tips Endoprosthesis 8-10 Mm X 8cm / 2cm Implanted:Qty: 1 on 10/07/2020 by Go Alvarado MD at [facility] Right: Abdomen 03/03/2023 [id number] / / [id number] Description:Viatorr TIPS End oprosthesis 8-10 mm x 8cm / 2cm, Manufactored by [employer] Syr Pf 2ml Embospheres 100-300 - [id number] Implanted:Qty: 1 on 04/18/2021 by Kevin Lim DO at OR [facility] Left: Abdomen [employer] [facility] [employer] [id number] 11/25/2023 [id number] / / [id number] Lipiodol Injection - [id number] Implanted:Qty: 1 on 03/28/2022 at [facility] [employer] 03/01/2023 [id number] Syr Pf 2ml Embospheres 100-300 - [id number] Implanted:Qty: 1 on 03/28/2022 at [facility] [employer] [facility] [employer] [id number] 08/31/2024 S220GH / / [id number] -5 Clareon Iol Aspheric Hydrophobic Acrylic Iol Implanted:Qty: 1 on 04/02/2023 by Cody Gonzalez DO at OR [facility] Right: Eye JAMZIN 11/12/2025 CNA0T0 / [id number] / Syr Pf 2ml Embospheres 100-300 - [id number] Implanted:Qty: 1 on 06/11/2024 at [facility] [employer] [facility] [employer] [id number] 01/02/2027 S220GH / / [id number] -[id number] Cath Diag Cobra 2 [id number] - [id number] Implanted:Qty: 1 on 06/11/2024 at [facility] [employer] [id number] 10/06/2026 [id number] / / [id number] documented as of this encounter Visit Diagnoses Diagnosis Hospital discharge follow-up- Primary Other follow-up examination Type 2 diabetes mellitus with stage 3a chronic kidney disease, with long-term current use of insulin (HCC) documented in this encounter Advance Directives Documents on File Type Date Recorded Patient Manager Educational Expl anation Advance Directives and Living Will 12/11/2022 ADVANCE DIRECTIVE / LIVING WILL LIVING WILL Power of Gas Fitter Helper 12/11/2022 POWER OF A TTORNEY * [...] Discussed due to patient's condition Care Teams Wood Carving Machine Operator Relationship Specialty Start Date End Date Kristen Vences DO [address] [place] [address] PCP - General Family Medicine 05/19/24 documented as of this encounter"
--- OUTSIDE RECORDS SUMMARY | 2024-07-05 06:49 | External Medical Summary | Summary of Care ---
Author Name Unknown Organization [facility] Address [address] [facility] [place] [place] [address] Phone [phone] Care Team Providers Care Insurance Underwriting Assistant Name Role Phone VangieRenatolang Rubin DO Primary Care Provider [phone] Encounter Details Date Type Department Care Team (Late st Contact Info) Description 06/24/2024 Telephone Hematology/Oncology George Blankenship [place] [facility] [address] Ayaka Tatum CRNP 400 [place] [address] Allergies No known active allergiesdocumented as of this encounter (statuses as of 06/24/2024) Medications Medication Sig Dispensed Refills Start Date [...] as of this encounter (statuses as of 06/24/2024) Active Problems Problem Noted Date Diagnosed Date [...] as of this encounter (statuses as of 06/24/2024) Resolved Problems Problem Noted Date Diagnosed Date [...] as of this encounter (statuses as of 06/24/2024) Immunizations Name Administration Dates Next Due COVID-19 mRNA, LNP-s, No Pre serve, 2-Dose Series ([employer]) 03/08/2021,02/15/2021 HepA Inact/HepB Recomb>=18yrs old 12/04/2019,04/2019,05/20/2019 11/19/2019 PPD 06/18/2017, 3,01/09/2012,06/2011 Pneumococcal Conjugate Vacc, 13 Valent (Prevnar) 05/01/2017 Pneumococcal Polysaccharide PPV23 (Pneumovax) 08/28/2022,10/25/2015,07/14/2012 Season Influenza, Quad, PF, Adjuvanted, 65+ Yrs, IM (FLUAD) 10/07/2020(Deferred: Patient Refused - pt says he already had his shot last [facility] made aware) Seasonal [...] Telephone Encounter - Ayaka Tatum CRNP - 06/24/2024 2:45 PM EDT Results for orders placed or [...] can be found in Results Review. Hgb 7.7. Nursing: Please follow up with patient if he feels like he needs a PRBC transfusion. documented in this encounter Plan of Treatment Upcoming Encounters Date Type Department Care Team (Late st Contact Info) Description 06/26/2024 2:00 PM EDT Office Visit [facility] [address] [place] [address] Kristen Venecs DO [address] [place] [address] 06/30/2024 7:00 AM EDT Laboratory Lab [facility] [address] [place] [address] [facility] [address] [place] [address] 07/07/2024 7:00 AM EDT Laboratory [facility]bot[facility] [address] [place] [address] [facility] [address] [place] [address] 07/08/2024 1:00 PM EDT Office Visit Nephdaphne, George Blankenship [address] [place] [address] Franki Herbert MD [address] [place] [address] 07/09/2024 9:40 AM EDT Office Visit Family [facility] [address] [place] [address] Kristen Vences DO [address] [place] [address] 07/14/2024 7:00 AM EDT Laboratory Lab [facility] Phlebot[facility] [address] [employer] [place], [place] [address] [facility] [address] [place] [address] 07/21/2024 7:00 AM EDT Laboratory [facility] Ph[facility] [address] [employer] [place], [place] [address] [facility] [address] [place] [address] 07/28/2024 7:00 AM EDT Laboratory [facility] Ph[facility] [address] [employer] [place], [place] [address] [facility] [address] [place] [address] 07/28/2024 2:00 PM EDT Office Visit Nephrology, [facility] [address] [place], [place] [address] Franki Herbert MD [address] [place], [place] [address] 08/04/2024 7:00 AM EDT Laboratory [facility] [address] [place] [address] M[facility] [address] [place] [address] 08/11/2024 7:00 AM EDT Laboratory [facility] Ph[facility] [address] [place] [address] [facility] [address] [place] [address] 08/18/2024 7:00 AM EDT Laboratory Lab [facility] Phlebotomy [facility] [address] [employer] [place] [address] [facility] [address] [place] [address] [place] [address] 08/20/2024 10:15 AM EDT Office Visit Ophthalmology, [facility] [address] Cody Gonzalez, DO [address] [place] [address] 08/25/2024 7:00 AM EDT Laboratory Lab [facility] Phlebotomy [facility] [address] [employer] [place] [address] [facility] [address] [employer] [place], [place] [address] 09/01/2024 7:00 AM EDT Laboratory Lab [facility] Phlebotomy [facility] [address] [employer] [place] [address] M[facility], [facility] Draw [address] [place] [address] 09/08/2024 7:00 AM EDT Laboratory Lab Mobile Phlebotomy [facility] [address] [employer] [place] [address] [place] [address] M[facility], [facility] Draw [address] [facility] [place], [place] [address] 09/11/2024 3:00 PM EDT Imaging Radiology [address] 132 [facility] [place], [place] [address] 09/15/2024 7:00 AM EDT Laboratory Lab [facility] Phlebot[facility] [address] [employer] [place] [place], [place] [address] [facility] [address] [place], [place] [address] 09/22/2024 7:00 AM EDT Laboratory [facility] Phlebot[facility] [address] [employer] [place] [address] M[facility], [facility] [address] [employer] [place], [place] [address] 09/28/2024 2:30 PM EDT Office Visit [facility]ology/On[facility] [place] 200 [facility] [place], [place] [id number] Ayaka Tatum, DOCK [employer]OSS [address] [place] [address] 09/29/2024 7:00 AM EDT Laboratory [facility] Phle[facility] [address] [employer] [place] [address] M[facility], [facility] [address] [employer] [place], [place] [address] 10/06/2024 7:00 AM EST Laboratory Lab [facility] Phlebotomy [facility] [address] [employer] [place] [address] [place] [address] Mv[facility], [facility] Draw [address] [employer] [place], [place] [address] 10/12/2024 10:20 AM EST Office Visit Pulmonary Medicine, [facility] 132 [facility] [place] [address] Jordan Stanley MD [address] [place] [address] 10/13/2024 7:00 AM EST Laboratory Lab [facility] Phlebotomy [facility] [address] [employer] [place], [place] [address] Mv[facility], [facility] Draw [address] [employer] [place], [place] [address] 10/20/2024 7:00 AM EST Laboratory Lab [facility] Phlebotomy [facility] [address] [employer] [place] [address] [place] [address] M[facility], [facility] Draw [address] [employer] [place], [place] [address] 10/27/2024 7:00 AM EST Laboratory Lab [facility] Phlebotomy [facility] [address] [place] [address] Mvmg, [facility] Draw [address] [employer] [facility] [place] [address] 10/30/2024 10:00 AM EST Office Visit Urology Lynnette Fitzpatrick [address] [place] [address] Frank Peraza MD [address] [place] [address] Scheduled Procedures Name Priority Associated Diagnoses Date/Ti [...] Additional history exists CKD PHOS USE SMARTSET 76625 05/19/202505/02, 05/08/2024, 04/07/2024, Additional history exists Diabetic Foot Exam 05/19/2025 05/19/2024, 0 03/06/2023, 01/03/2022, Additional history exists CKD HGB USE SMARTSET 32569 06/23/202506/23, 06/23/2024, 06/11/2024, Additional history exists Sigmoidoscopy [...] this encounter Medical Devices Implanted Type Area Check Totaler Device Identifier Shelf Expiration Date Model / Serial / Lot Clareon Iol Aspheric Hydrophobic Acrylic Iol Implanted:Qty: 1 on 04/23/2023 by Cody Gonzalez DO at OR [facility] Lens Left: Eye 11/12/2025 CNA0T0 / [id number] / Viatorr Tips Endoprosthesis 8-10 Mm X 8cm / 2cm Implanted:Qty: 1 on 10/07/2020 by Go Alvarado MD at [facility] Right: Abdomen 03/03/2023 [id number] / / [id number] Description:Viatorr TIPS End oprosthesis 8-10 mm x 8cm / 2cm, Manufactored by [employer] Syr Pf 2ml Embospheres 100-300 - [id number] Implanted:Qty: 1 on 04/18/2021 by Kevin Lim DO at OR [facility] Left: Abdomen [employer] [id number] 11/25/2023 S220GH / / [id number] Lipiodol Injection - [id number] Implanted:Qty: 1 on 03/28/2022 at [facility] [employer] 03/01/2023 48327-59 01-2 / / [id number] Syr Pf 2ml Embospheres 100-300 - [id number] Implanted:Qty: 1 on 03/28/2022 at [facility] [employer] [id number] 08/31/2024 S220GH / / [id number] Clareon Iol Aspheric Hydrophobic Acrylic Iol Implanted:Qty: 1 on 04/02/2023 by Cody Gonzalez DO at OR [facility] Right: Eye JAZMIN 11/12/2025 CNA0T0 / [id number] / Syr Pf 2ml Embospheres 100-300 - [id number] Implanted:Qty: 1 on 06/11/2024 at [facility] [employer] [id number] 01/02/2027 S220GH / / [id number] Cath Diag Cobra 2 [id number] - [id number] Implanted:Qty: 1 on 06/11/2024 at [facility] [employer] [id number] 10/06/2026 H78 [id number] / / [id number] documented as of this encounter Advance Directives Documents on File Type Date Recorded Patient Shot Lighter Expl anation Advance Directives and Living Will 12/11/2022 ADVANCE DIRECTIVE / LIVING WILL LIVING WILL Power of French Edge Operator 12/11/2022 POWER OF A TTORNEY * [...] Discussed due to patient's condition Care Teams Insurance Underwriting Assistant Relationship Specialty Start Date End Date Kristen Vences DO [address] [place] [address] PCP - General Family Medicine 05/19/24 documented as of this encounter
--- OUTSIDE RECORDS SUMMARY | 2024-07-05 06:49 | External Medical Summary | Summary of Care ---
Author Name Unknown Organization [facility] Address [address] [place] [address] Phone [phone] Care Team Providers Care Administration Intern Name Role Phone VangieKristen shahid Caryn SANDOVAL Primary Care Provider [phone] Encounter Details Date Type Department Care Team (Late st Contact Info) Description 06/29/2024 9:30 AM EDT Scheduled Telephone Care Coordination and Integration [address] [place], [place] [phone] Kriss Masy, Community Health Director Of Manufacturing Operations [address] [place], [place] [id number] Allergies No known active allergiesdocumented as of this encounter (statuses as of 06/29/2024) Medications Medication Sig Dispensed Refills Start Date [...] as of this encounter (statuses as of 06/29/2024) Active Problems Problem Noted Date Diagnosed Date [...] as of this encounter (statuses as of 06/29/2024) Resolved Problems Problem Noted Date Diagnosed Date [...] as of this encounter (statuses as of 06/29/2024) Immunizations Name Administration Dates Next Due COVID-19 mRNA, LNP-s, No Pre serve, 2-Dose Series (Pfizer) 03/08/2021,02/15/2021 HepA Inact/HepB Recomb>=18yrs old 12/04/2019,04/2019,05/20/2019 11/19/2019 PPD 06/18/2017, 3,01/09/2012,06/2011 Pneumococcal Conjugate Vacc, 13 Valent (Prevnar) 05/01/2017 Pneumococcal Polysaccharide PPV23 (Pneumovax) 08/28/2022,10/25/2015,07/14/2012 Season Influenza, Quad, PF, Adjuvanted, 65+ Yrs, IM (FLUAD) 10/07/2020(Deferred: Patient Refused - pt says he already had his shot last month at [facility] [...] Phlebotomy [facility] [address] [place] [address] [facility] [address] [place] [address] 07/07/2024 7:00 AM EDT Laboratory Lab Mobile Phlebot[facility] [address] [place] [address] [facility] [address] [place] [address] 07/08/2024 1:00 PM EDT Office Visit Nephrology, George Blankenship [address] [place] [address] Franki Herbert MD [address] [place] [address] 07/09/2024 9:40 AM EDT Office Visit Family Practice [facility] [address] [place] [address] Kristen Vences DO [address] [place] [address] 07/14/2024 7:00 AM EDT Laboratory [facility]bot[facility] [address] [place] [address] [facility] [address] [place] [address] 07/21/2024 7:00 AM EDT Laboratory Lab [facility] Phlebotomy [facility] [address] [place] [address] [facility] Draw [address] [facility] [place] [address] 07/28/2024 7:00 AM EDT Laboratory Lab [facility] Phlebotomy [facility] [address] [place], [place] [address] [facility] Draw [address] [facility] [place] [address] 07/28/2024 2:00 PM EDT Office Visit Nephrology, George Blankenship [address] [place], [place] [address] Franki Herbert MD [address] [place] [address] 08/04/2024 7:00 AM EDT Laboratory [facility]bot[facility] [address] [place], [place] [address] [facility] [address] [place], [place] [address] 08/11/2024 7:00 AM EDT Laboratory [facility]bot[facility] [address] [place] [address] [facility] [address] [facility] [place] [address] 08/18/2024 7:00 AM EDT Laboratory Lab [facility] Phlebot[facility] [address] [place] [address] [facility] [address] [place] [address] 08/20/2024 10:15 AM EDT Office Visit Ophthalmology, [facility] 132 [place] [address] Cody Gonzalez, DO [address] [facility] [place] [address] 08/25/2024 7:00 AM EDT Laboratory Lab Mobile Phlebotomy [facility] [address] [email or web address] [place] [address] [facility], [facility] Draw [address] [email or web address] [place] [address] 09/01/2024 7:00 AM EDT Laboratory Lab Mobile Phlebotomy [facility] [address] [email or web address] [place] [address] [facility] [address] [employer] [place] [address] 09/08/2024 7:00 AM EDT Laboratory Lab Mobile Phlebotomy [facility] [address] [email or web address] [place] [address] [facility], [facility] Draw [address] [place], [place] [address] 09/11/2024 3:00 PM EDT Imaging Radiology [address] 132 [place] [address] 09/15/2024 7:00 AM EDT Laboratory Lab [facility] Phlebot[facility] [address] [place] [address] [facility], [facility] Draw [address] [email or web address] [place], [place] [address] 09/22/2024 7:00 AM EDT Laboratory Lab Mobile Phlebotomy [facility] [address] [employer] [place] [place] [address] M[facility], [facility] Draw [address] [place], [place] [address] 09/28/2024 2:30 PM EDT Office Visit Hematology/Oncology [facility] [place] 200 [facility] [place] [address] Ayaka Cortez CRNP 400 [facility] [place] [address] 09/29/2024 7:00 AM EDT Laboratory Lab Mobile Phlebotomy [facility] [address] [email or web address] [facility], [place] [address] Mv[facility], Gml Mobile Home Draw 2520 [facility], [place] [address] 10/06/2024 7:00 AM EST Laboratory Lab Mobile Phlebotomy [facility] [address] [email or web address] [facility], [place] [address] Mv[facility], Gml [facility] Home Draw 2520 [facility], [place] [address] 10/12/2024 10:20 AM EST Office Visit Pulmonary Medicine, [facility] [address] [place] [address] Jordan Stanley MD [address] [place] [address] 10/13/2024 7:00 AM EST Laboratory Lab Mobile Phlebotomy [facility] 2520 [facility], [place] [address] M[facility], [facility] Draw 2520 [facility], [place] [address] 10/20/2024 7:00 AM EST Laboratory Lab Mobile Phlebotomy [facility] 25[address] [facility], [place] [address] Mv[facility], Gml [facility] Draw 2520 [facility], [place] [address] 10/27/2024 7:00 AM EST Laboratory Lab Mobile Phlebotomy [facility] 25[address] [facility], [place] [address] Mvmg, Gml [facility] Home Draw 25[address] [facility], [place] [address] 10/30/2024 10:00 AM EST Office Visit Urology Lynnette Fitzpatrick [address] [facility] [address] [place] [address] Frank Peraza MD 27 [place] [address] Scheduled Procedures Name Priority Associated Diagnoses Date/Ti [...] Postponed from 01/17/2024 (Other) HbA1c 10/08/2024 04/07/2024, 12/2 06/2023, 05/28/2023, Additional history exists GFR 12/12/2024 06/11/2024, 07/0 08/2024, 05/19/2024, Additional history exists Albumin/Creatinine Ratio 05/19/2025 024, 07/12/2023, 10/01/2022, Additional history exists CKD PHOS USE SMARTSET 97776 05/19/202505/02, 05/08/2024, 04/07/2024, Additional history exists Diabetic Foot Exam 05/19/2025 05/19/2024, 0 03/06/2023, 01/03/2022, Additional history exists CKD HGB USE SMARTSET 06589 06/23/202506/234, 06/23/2024, 06/11/2024, Additional history exists Sigmoidoscopy 04/12/2027 [...] this encounter Medical Devices Implanted Type Area Starch Treating Assistant Device Identifier Shelf Expiration Date Model / Serial / Lot Clareon Iol Aspheric Hydrophobic Acrylic Iol Implanted:Qty: 1 on 04/23/2023 by Cody Gonzalez DO at OR [facility] Lens Left: Eye 11/12/2025 CNA0T0 / [id number] 136 / Viatorr Tips Endoprosthesis 8-10 Mm X 8cm / 2cm Implanted:Qty: 1 on 10/07/2020 by Go Alvarado MD at [facility] Right: Abdomen 03/03/2023 [id number] / / [id number] Description:Viatorr TIPS End oprosthesis 8-10 mm x 8cm / 2cm, Manufactored by [employer] Syr Pf 2ml Embospheres 100-300 - [id number] Implanted:Qty: 1 on 04/18/2021 by Kevin Lim DO at OR [facility] Left: Abdomen [employer] [id number] 11/25/2023 S220GH / / [id number] Lipiodol Injection - [id number] Implanted:Qty: 1 on 03/28/2022 at [facility] [employer] 03/01/2023 62578-51 01-2 / / [id number] Syr Pf 2ml Embospheres 100-300 - [id number] Implanted:Qty: 1 on 03/28/2022 at [facility] [employer] [id number] 08/31/2024 S220GH / / [id number] Clareon Iol Aspheric Hydrophobic Acrylic Iol Implanted:Qty: 1 on 04/02/2023 by Cody Gonzalez, DO at OR [facility] Right: Eye [employer]MIN 11/12/2025 CNA0T0 / [id number] / Syr Pf 2ml Embospheres 100-300 - [id number] Implanted:Qty: 1 on 06/11/2024 at [facility] [employer] [id number] 01/02/2027 S220GH / / [id number] Cath Diag Cobra 2 [id number] - [id number] Implanted:Qty: 1 on 06/11/2024 at [facility] [employer] [id number] 10/06/2026 H78 [id number] / / [id number] documented as of this encounter Advance Directives Documents on File Type Date Recorded Patient Shampoo Person Expl anation Advance Directives and Living Will 12/11/2022 ADVANCE DIRECTIVE / LIVING WILL LIVING WILL Power of Account Liaison 12/11/2022 POWER OF A TTORNEY * Full [...] Discussed due to patient's condition Care Teams Administration Intern Relationship Specialty Start Date End Date Kristen Vences DO [address] [place] [address] PCP - General Family Medicine 05/19/24 documented as of this encounter
--- OUTSIDE RECORDS SUMMARY | 2024-07-05 06:49 | External Medical Summary | Summary of Care ---
Author Name Unknown Organization [facility] Address [address] [place] [facility] [place] [address] Phone [phone] Care Team Providers Care Entry Driver Operator Name Role Phone VangieRenatolang Rubin DO Primary Care Provider [phone] Encounter Details Date Type Department Care Team (Late st Contact Info) Description 06/24/2024 Telephone Hematology/Oncology George Blankenship [place] [address] [facility] [address] Ayaka Tatum CRNP 400 [facility] [place] [address] Allergies No known active allergiesdocumented as [...] mRNA, LNP-s, No Pre serve, 2-Dose Series ([employer]) 03/08/2021,02/15/2021 HepA Inact/HepB Recomb>=18yrs old 12/04/2019,04/2019,05/20/2019 11/19/2019 PPD 06/18/2017, 3,01/09/2012,06/2011 Pneumococcal Conjugate Vacc, 13 Valent (Prevnar) 05/01/2017 Pneumococcal Polysaccharide PPV23 (Pneumovax) 08/28/2022,10/25/2015,07/14/2012 Season Influenza, Quad, PF, Adjuvanted, 65+ Yrs, IM (FLUAD) 10/07/2020(Deferred: Patient Refused - pt says he already had [facility] shot last [facility] made aware) Seasonal [...] Description 06/26/2024 2:00 PM EDT Office Visit [facility] [address] [place] [address] Kristen Vences DO [address] [place] [address] 06/30/2024 7:00 AM EDT Laboratory Lab [facility] [address] [place] [address] [facility] [address] [place] [address] 07/07/2024 7:00 AM EDT Laboratory Lab [facility] Phlebot[facility] [address] [place] [address] [facility] [address] [place] [address] 07/08/2024 1:00 PM EDT Office Visit Nephdaphne, George Blankenship [address] [place] [address] Franki Herbert MD [address] [place] [address] 07/09/2024 9:40 AM EDT Office Visit Family [facility] [address] [place] [address] Kristen Vences DO [address] [place] [address] 07/14/2024 7:00 AM EDT Laboratory Lab Mobile Phlebotomy [facility] [address] [place], [place] [address] M[facility] [address] [place] [address] 07/21/2024 7:00 AM EDT Laboratory Lab Mobile Phlebotomy [facility] [address] [place], [place] [address] M[facility], [facility] [address] [place] [address] 07/28/2024 7:00 AM EDT Laboratory Lab Mobile Phlebotomy [facility] [address] [place], [place] [address] M[facility], [facility] [address] [place] [address] 07/28/2024 2:00 PM EDT Office Visit Nephrology, [facility] [address] [place], [place] [address] Franki Herbert MD [address] [place], [place] [address] 08/04/2024 7:00 AM EDT Laboratory Lab Mobile Phlebotomy [facility] [address] [place] [place] [address] M[facility] [address] [place] [address] 08/11/2024 7:00 AM EDT Laboratory Lab Mobile Phlebotomy [facility] [address] [place] [address] Mvmg, [facility] [address] [place] [address] 08/18/2024 7:00 AM EDT Laboratory Lab Mobile Phlebotomy [facility] [address] [place] [address] [facility], [facility] Draw [address] [place] [address] [place] [address] 08/20/2024 10:15 AM EDT Office Visit Ophthalmology, [facility] [address] Cody Gonzalez, DO [address] [place] [address] 08/25/2024 7:00 AM EDT Laboratory Lab Mobile Phlebotomy [facility] [address] [place] [address] M[facility], [facility] [address] [place], [place] [address] 09/01/2024 7:00 AM EDT Laboratory Lab Mobile Phlebotomy [facility] [address] [place] [address] Mv[facility], [facility] Draw [address] [facility] [place] [address] 09/08/2024 7:00 AM EDT Laboratory Lab Mobile Phlebotomy [facility] [address] [place] [address] Mv[facility], [facility] Draw [address] [facility] [place], [place] [address] 09/11/2024 3:00 PM EDT Imaging Radiology [address] 132 [facility] A[place], [place] [address] 09/15/2024 7:00 AM EDT Laboratory Lab Mobile Phlebotomy [facility] [address] [place], [place] [address] M[facility], [facility] [address] [place], [place] [address] 09/22/2024 7:00 AM EDT Laboratory Lab Mobile Phlebotomy [facility] [address] [place] [address] Mv[facility], [facility] Draw [address] [place], [place] [address] 09/28/2024 2:30 PM EDT Office Visit Hematology/Oncology [facility] [place] 200 [facility] [place], [place] [phone] Ayaka Tatum, CLINIC SUPERVISOR [address] [place] [place] [address] 09/29/2024 7:00 AM EDT Laboratory Lab Mobile Phlebotomy [facility] [address] [place] [address] M[facility], [facility] [address] [place], [place] [address] 10/06/2024 7:00 AM EST Laboratory Lab Mobile Phlebotomy [facility] [address] [place] [address] M[facility], [facility] Draw [address] [place], [place] [address] 10/12/2024 10:20 AM EST Office Visit Pulmonary Medicine, [facility] 132 [facility] [place] [address] Jordan Stanley MD [address] [place] [address] 10/13/2024 7:00 AM EST Laboratory Lab Mobile Phlebotomy [facility] [address] [place], [place] [address] Mv[facility], [facility] [address] [place], [place] [address] 10/20/2024 7:00 AM EST Laboratory Lab Mobile Phlebotomy [facility] [address] [place] [address] Mvmg, [facility] Draw [address] [place], [place] [address] 10/27/2024 7:00 AM EST Laboratory Lab Mobile Phlebotomy [facility] [address] [place] [place] [address] M[facility]mg, [facility] Draw [address] [facility] [place] [address] 10/30/2024 10:00 AM EST Office Visit Urology Lynnette Fitzpatrick [address] [place] [address] Frank Peraza MD [address] [place] [address] Scheduled Procedures Name Priority Associated Diagnoses Date/Ti [...] Additional history exists CKD PHOS USE SMARTSET 90127 05/19/202505/02, 05/08/2024, 04/07/2024, Additional history exists Diabetic Foot Exam 05/19/2025 05/19/2024, 0 03/06/2023, 01/03/2022, Additional history exists CKD HGB USE SMARTSET 37839 06/23/202506/23, 06/23/2024, 06/11/2024, Additional history exists Sigmoidoscopy [...] this encounter Medical Devices Implanted Type Area Family Day Care Provider Device Identifier Shelf Expiration Date Model / Serial / Lot Clareon Iol Aspheric Hydrophobic Acrylic Iol Implanted:Qty: 1 on 04/23/2023 by Cody Gonzalez DO at OR [facility] Lens Left: Eye 11/12/2025 CNA0T0 / [id number] / Viatorr Tips Endoprosthesis 8-10 Mm X 8cm / 2cm Implanted:Qty: 1 on 10/07/2020 by Go Alvarado MD at [facility] Right: Abdomen 03/03/2023 [id number] / / [id number] Description:Viatorr TIPS End oprosthesis 8-10 mm x 8cm / 2cm, Manufactored by [employer] Syr Pf 2ml Embospheres 100-300 - [id number] Implanted:Qty: 1 on 04/18/2021 by Kevin Lim DO at OR [facility] Left: Abdomen [employer] [id number] 11/25/2023 S220GH / / [id number] Lipiodol Injection - [id number] Implanted:Qty: 1 on 03/28/2022 at [facility] [employer] 03/01/2023 19205-22 01-2 / / [id number] Syr Pf 2ml Embospheres 100-300 - [id number] Implanted:Qty: 1 on 03/28/2022 at [facility] [employer] [id number] 08/31/2024 S220GH / / [id number] -[id number] Clareon Iol Aspheric Hydrophobic Acrylic Iol Implanted:Qty: 1 on 04/02/2023 by Cody Gonzalez DO at OR [facility] Right: Eye JAZMIN 11/12/2025 CNA0T0 / [id number] / Syr Pf 2ml Embospheres 100-300 - [id number] Implanted:Qty: 1 on 06/11/2024 at [facility] [employer] [id number] 01/02/2027 S220GH / / [id number] Cath Diag Cobra 2 [id number] - [id number] Implanted:Qty: 1 on 06/11/2024 at [facility] [employer] [id number] 10/06/2026 H78 [id number] / / [id number] documented as of this encounter Advance Directives Documents on File Type Date Recorded Patient Classified Advertising Clerk Expl anation Advance Directives and Living Will 12/11/2022 ADVANCE DIRECTIVE / LIVING WILL LIVING WILL Power of Substation Electrician 12/11/2022 POWER OF A TTORNEY * Full [...] Discussed due to patient's condition Care Teams Entry Driver Operator Relationship Specialty Start Date End Date Kristen Vences DO [address] [place] [address] PCP - General Family Medicine 05/19/24 documented as of this encounter
--- OUTSIDE RECORDS SUMMARY | 2024-07-05 06:49 | External Medical Summary ---
Author Name Unknown Address Unknown Organization K01:LABORATORY [facility] - [address] [place] [address] Laboratory Report Ordering Provider Test Date Status CHELSEY BISWAS 06/23/2024 10:48:00 Final Observation Date Value Abnormality Reference (Units ) Status SYNC LEUKOCYTES IN BLOOD BY AUTOMATED COUNT 06/23/2024 10:48:00 2.42 Below low normal 4.00-10.80 (K/uL) Final Segs 06/23/2024 10:48:00 65.7 40.0-75.0 (%) Final Lymphs % 06/23/2024 10:48:00 19.4 18.0-42.0 (%) Final Monos 06/23/2024 10:48:00 5.4 1.0-11.0 (%) Final Eosinophils 06/23/2024 10:48:00 8.7 Above high normal 0.0-6.0 (%) Final Basos 06/23/2024 10:48:00 0.4 0.0-2.0 (%) Final Immature Granulocyte, Percent 06/23/2024 10:48:00 0.4 0.0-2.0 (%) Final Absolute Segs 06/23/2024 10:48:00 1.59 Below low normal 1.80-7.70 (K/uL) Final Lymphs, absolute 06/23/2024 10:48:00 0.47 Below low normal 1.00-4.80 (K/ul) Final Monos, Abs 06/23/2024 10:48:00 0.13 0.00-1.10 (K/uL) Final Eos, Abs 06/23/2024 10:48:00 0.21 0.00-0.70 (K/uL) Final Basos, Abs 06/23/2024 10:48:00 0.01 0.00-0.20 (K/uL) Final Immature Granulocytes, Number 06/23/2024 10:48:00 0.01 0.00-0.20 (K/uL) Final Performing Location LABORATORY [facility] - [facility] [address]. [facility] [address]
--- OUTSIDE RECORDS SUMMARY | 2024-07-05 06:49 | External Medical Summary | Summary of Care ---
Author Name Unknown Organization [facility] Address [address] [facility] [place] [address] Phone [phone] Care Team Providers Care Victim Witness Administrator Name Role Phone VangeiKristen shahid Caryn SANDOVAL Primary Care Provider [phone] Reason for Visit * Reason Onset Date Comments Test Results Lab 06/24/2024 Encounter Details Date Type Department Care Team (Late st Contact Info) Description 06/24/2024 Telephone Hematology/Oncology George Blankenship [place] [address] [place] [address] Ayaka Tatum CRNP [address] [place] [address] Test Results Lab Allergies No known [...] already had his shot last month at [facility] Handy Lyons and Mckinley Cobian [...] Telephone Encounter - Abdoul Oliva RN - 06/25/2024 8:58 AM EDT Pt agreeable to blood tranfusion, states he has appiontments today and tomorrow, agreeable to having it on Saturday. Called [facility] and spoke with Ondina, they scheduled him for 8:30AM on Friday 06/29 for T&S and 1U PRBC. She is to notify central scheduling. Called [facility], they will have a unit ready. Faxed orders for T&S and PRBC to [facility]. * Telephone Encounter - Ayaka Tatum CRNP [...] Description 06/26/2024 2:00 PM EDT Office Visit [facility] [address] [place] [address] Kristen Vences DO 132 [place] [address] 06/30/2024 7:00 AM EDT Laboratory Lab Mobile Phlebotomy [facility] [address] [place], [place] [address] [facility] [address] [place], [place] [address] 07/07/2024 7:00 AM EDT Laboratory Lab [facility] Phlebotomy [facility] [address] [place], [place] [address] [facility], [facility] [address] [place], [place] [address] 07/08/2024 1:00 PM EDT Office Visit [place] 200 [facility] [place], [place] [address] Franki Herbert MD 200 [facility] [place], [place] [address] 07/09/2024 9:40 AM EDT Office Visit Family [facility] [address] [place] [address] Kristen Vences DO [address] [place] [address] 07/14/2024 7:00 AM EDT Laboratory Lab Mobile Phlebotomy [facility] [address] [place], [place] [address] M[facility], [facility] [address] [place], [place] [address] 07/21/2024 7:00 AM EDT Laboratory Lab Mobile Phlebotomy [facility] [address] [place], [place] [address] [facility], [facility] Draw [address] [place] [address] 07/28/2024 7:00 AM EDT Laboratory Lab Mobile Phlebotomy [facility] [address] [place], [place] [address] M[facility], [facility] Draw [address] [place] [address] 07/28/2024 2:00 PM EDT Office Visit Nephrology, [facility] [address] [place] [address] Franki Herbert MD [address] [place] [address] 08/04/2024 7:00 AM EDT Laboratory Lab Mobile Phlebotomy [facility] [address] [place], [place] [address] Mv[facility], [facility] Draw [address] [place], [place] [address] 08/11/2024 7:00 AM EDT Laboratory Lab Mobile Phlebotomy [facility] [address] [place], [place] [address] Mvmg, [facility] Draw [address] [place], [place] [address] 08/18/2024 7:00 AM EDT Laboratory Lab Mobile Phlebotomy [facility] [address] [place], [place] [address] Mv[facility], [facility] Draw 2520 [facility] [place], [place] [address] 08/20/2024 10:15 AM EDT Office Visit Ophthalmology, [facility] 132 [facility] [place] [address] Cody Gonzalez DO 21 [facility] [address] 08/25/2024 7:00 AM EDT Laboratory Lab Mobile Phlebotomy [facility] [address] [place], [place] [address] Mvmg, Gml [facility] Draw [address] [place] [address] 09/01/2024 7:00 AM EDT Laboratory Lab Mobile Phlebotomy [facility] [address] [place], [place] [address] Mvmg, [facility] Draw [address] [place], [place] [address] 09/08/2024 7:00 AM EDT Laboratory Lab Mobile Phlebotomy [facility] [address] [place], [place] [address] Mvmg, [facility] Draw [address] [place], [place] [address] 09/11/2024 3:00 PM EDT Imaging Radiology [address] [place] [address] 09/15/2024 7:00 AM EDT Laboratory Lab Mobile Phlebotomy [facility] [address] [place] [address] Mvmg, Gml [facility] Draw [address] [place], [place] [address] 09/22/2024 7:00 AM EDT Laboratory Lab Mobile Phlebotomy [facility] [address] [place] [address] Mvmg, [facility]ml [facility] Draw [address] [place] [address] 09/28/2024 2:30 PM EDT Office Visit Hematology/Oncology [facility] 200 [facility] [place], [place] [address] Ayaka Tatum CRNP [address] [place] [address] [place] [address] 09/29/2024 7:00 AM EDT Laboratory Lab Mobile Phlebotomy [facility] [address] [place] [address] Mv[facility], [facility] Draw [address] [place] [address] 10/06/2024 7:00 AM EST Laboratory Lab Mobile Phlebotomy [facility] [address] [place] [address] Mvmg, Gml [facility] Draw [address] [place] [address] 10/12/2024 10:20 AM EST Office Visit Pulmonary Medicine, [facility] 132 [facility] [place] [address] Jordan Stanley MD [address] [place] [address] 10/13/2024 7:00 AM EST Laboratory Lab Mobile Phlebotomy [facility] [address] [place] [address] Mvmg, Gml Mobile Home Draw [address] [place] [address] 10/20/2024 7:00 AM EST Laboratory Lab Mobile Phlebotomy [facility] [address] [place] [address] Mvmg, Gml Mobile Home Draw [address] [place] [address] 10/27/2024 7:00 AM EST Laboratory Lab Mobile Phlebotomy [facility] [address] [place], [place] [address] Mvmg, Gml Mobile Home Draw [address] [facility], [place] [address] 10/30/2024 10:00 AM EST Office Visit Urology Lynnette Fitzpatrick [address] [place] [address] Frank Peraza MD 27 [place] [address] Scheduled Procedures Name Priority Associated Diagnoses Date/Ti [...] Additional history exists CKD PHOS USE SMARTSET 73740 05/19/202505/02, 05/08/2024, 04/07/2024, Additional history exists Diabetic Foot Exam 05/19/2025 05/19/2024, 0 03/06/2023, 01/03/2022, Additional history exists CKD HGB USE SMARTSET 50475 06/23/202506/23, 06/23/2024, 06/11/2024, Additional history exists Sigmoidoscopy [...] this encounter Medical Devices Implanted Type Area Toilet Attendant Device Identifier Shelf Expiration Date Model / Serial / Lot Clareon Iol Aspheric Hydrophobic Acrylic Iol Implanted:Qty: 1 on 04/23/2023 by Cody Gonzalez DO at [facility] Lens Left: Eye 11/12/2025 CNA0T0 / [id number] / Viatorr Tips Endoprosthesis 8-10 Mm X 8cm / 2cm Implanted:Qty: 1 on 10/07/2020 by Go Alvarado MD at [facility] Right: Abdomen 03/03/2023 [id number] / / [id number] Description:Viatorr TIPS End oprosthesis 8-10 mm x 8cm / 2cm, Manufactored by [employer] Syr Pf 2ml Embospheres 100-300 - [id number] Implanted:Qty: 1 on 04/18/2021 by Kevin Lim DO at OR [facility] Left: Abdomen [employer] [id number] 11/25/2023 S220GH / / [id number] Lipiodol Injection - [id number] Implanted:Qty: 1 on 03/28/2022 at [facility] [employer] 03/01/2023 70427-62 01-2 / / [id number] Syr Pf 2ml Embospheres 100-300 - [id number] Implanted:Qty: 1 on 03/28/2022 at [facility] [employer] [id number] 08/31/2024 S220GH / / [id number] Clareon Iol Aspheric Hydrophobic Acrylic Iol Implanted:Qty: 1 on 04/02/2023 by Cody Gonzalez DO at OR [facility] Right: Eye JAZMIN 11/12/2025 CNA0T0 / [id number] / Syr Pf 2ml Embospheres 100-300 - [id number] Implanted:Qty: 1 on 06/11/2024 at [facility] [employer] [id number] 01/02/2027 S220GH / / [id number] Cath Prade[place] 2 [id number] - [id number] Implanted:Qty: 1 on 06/11/2024 at [facility] [employer] [id number] 10/06/2026 H78 [id number] / / [id number] documented as of this encounter Advance Directives Documents on File Type Date Recorded Patient Surgical Nurse Expl anation Advance Directives and Living Will 12/11/2022 ADVANCE DIRECTIVE / LIVING WILL LIVING WILL Power of Production Painter 12/11/2022 POWER OF A TTORNEY * Full [...] Discussed due to patient's condition Care Teams Victim Witness Administrator Relationship Specialty Start Date End Date Kristen Vences DO [address] [place] [address] PCP - General Family Medicine 05/19/24 documented as of this encounter
--- OUTSIDE RECORDS SUMMARY | 2024-07-05 06:49 | External Medical Summary ---
Author Name Unknown Address Unknown Organization K01:[facility]ORY [place] [address] [facility] [address] Laboratory Report Ordering Provider Test Date Status CHELSEY BISWAS 06/23/2024 10:48:00 Final Observation Date Value Abnormality Reference (Units ) Status WBC, Total 06/23/2024 10:48:00 2.42 Below low normal 4. 00-10.80 (K/uL) Final RBC 06/23/2024 10:48:00 2.36 4.50-5.25 (M/uL) Final Hemoglobin 06/23/2024 10:48:00 7.7 Below low normal 14 .0-16.8 (g/dL) Final HCT 06/23/2024 10:48:00 23.7 Below low normal 40. 0-48.4 (%) Final MCV 06/23/2024 10:48:00 100.4 82.0-99.5 (fL) Final MCH 06/23/2024 10:48:00 32.6 27.0-34.0 (pg) Final MCHC 06/23/2024 10:48:00 32.5 32.0-36.0 (g/dL) Final RDW 06/23/2024 10:48:00 19.3 11.5-15.5 (%) Final Platelets 06/23/2024 10:48:00 54 Below low normal 140 -400 (K/uL) Final MPV 06/23/2024 10:48:00 Final No result - abnormal platele t distribution. Nucleated erythrocytes/100 l eukocytes [Ratio] in Blood by Automated count 06/23/2024 10:48:00 0 <=0 (/100 WBCs) Final Performing Location LAB[facility]ATORY [facility] [place] - [facility] [place] [address]
--- OUTSIDE RECORDS SUMMARY | 2024-07-05 06:49 | External Medical Summary | Summary of Care ---
Author Name Unknown Organization [facility] Address [address] [place] [address] Phone [phone] Care Team Providers Care See Supervisor Name Role Phone VangieKristen shahid Caryn SANDOVAL Primary Care Provider [phone] Encounter Details Date Type Department Care Team (Late st Contact Info) Description 06/22/2024 10:30 AM EDT Scheduled Telephone Care Coordination and Integration [address], [place] [phone] Kriss Mays, Community Health Fluxer [address], [place] [phone] Allergies No known active allergiesdocumented as of [...] Progress Notes * Kriss Mays, Community Health Fluxer - 06/22/2024 10:53 AM EDT Telemedicine visit: No Community Health Fluxer (CANDY) documentation: CHW placed #3 f/u call to patient Patient reported that his daughter and son in law were visiting at the moment and they were discussing things as far as moving forward and future plans for patient. Patient put daughter on the phone because daughter had questions. Daughter would like to know what level of functioning his kidneys are at. Patient was unsure and noone has openly told them this. They need to know this to help determine level of care that patient needs moving forward and what there plan of action needs to be. Daughter also requested a social science teacher referral. CHW gave [facility] aging office contact number to daughter as well to have an assessment done with patient in the home to determine need level and getting home health etc in the [facility]. Patient appears to be doing okay today, is having some pain in his right side. He is taking Tylenol about twice a day for this to manage pain. Is having some blood in his urine as well. Patient is stating that he has a Dr. Vences appointment this Saturday however this is not listed in his chart.CHW reviewed upcoming appointments with daughter and patient. CHW will confirm with pcp about appointment this Saturday. Kriss Mays- Community Health Worker 1 Support Services/[facility] Plan [email or web address] documented in this encounter Plan of Treatment Upcoming Encounters Date Type Department Care Team (Late st Contact Info) Description 06/30/2024 7:00 AM EDT Laboratory Lab Mobile Phlebotomy [facility] [address] [place] [address] [facility] [address] [place] [address] [place] [address] 07/07/2024 7:00 AM EDT Laboratory Lab Mobile Phlebotomy [facility] [address] [place] [place] [address] [facility] [address] [place] [address] 07/08/2024 1:00 PM EDT Office Visit Nephrology, [facility] [address] [place] [address] [address] Franki Herbert MD [address] [place] [address] [place] [address] 07/09/2024 9:40 AM EDT Office Visit Family Practice [facility] [address] [facility] [place] [address] Kristen Vences DO [address] [place] [address] 07/14/2024 7:00 AM EDT Laboratory Lab Mobile Phlebotomy [facility] [address] [place] [address] [facility] [address] [place] [address] [place] [address] 07/21/2024 7:00 AM EDT Laboratory Lab Mobile Phlebotomy [facility] [address] [address] [facility] [address] [place] [address] 07/28/2024 7:00 AM EDT Laboratory Lab Mobile Phlebotomy [facility] [address] [place], [place] [address] M[facility], [facility] Draw [address] [facility] [place], [place] [address] 07/28/2024 2:00 PM EDT Office Visit Nephrology, [facility] [address] [place], [place] [address] Franki Herbert MD [address] [place], [place] [address] 08/04/2024 7:00 AM EDT Laboratory Lab Mobile Phlebotomy [facility] [address] [place] [address] [facility], [facility] Draw [address] [facility] [place], [place] [address] 08/11/2024 7:00 AM EDT Laboratory Lab Mobile Phlebotomy [facility] [address] [place], [place] [address] Mvmg, [facility] Draw [address] [facility] [place], [place] [address] 08/18/2024 7:00 AM EDT Laboratory Lab Mobile Phlebotomy [facility] [address] [place], [place] [address] Mvmg, Gml [facility] Draw [address] [facility] [place], [place] [address] 08/20/2024 10:15 AM EDT Office Visit Ophthalmology, [facility] 132 [facility] [place] [address] Cody Gonzalez, DO [address] [place] [address] 08/25/2024 7:00 AM EDT Laboratory Lab Mobile Phlebotomy [facility] [address] [place] [address] Mvmg, [facility] Draw [address] [facility] [place], [place] [address] 09/01/2024 7:00 AM EDT Laboratory Lab Mobile Phlebotomy [facility] [address] [place] [address] Mvmg, G[facility] Draw [address] [place] [address] 09/08/2024 7:00 AM EDT Laboratory Lab Mobile Phlebotomy [facility] [address] [place] [address] M[facility], [facility] Draw [address] [place] [address] 09/11/2024 3:00 PM EDT Imaging Radiology [address], [address] [address] 09/15/2024 7:00 AM EDT Laboratory Lab Mobile Phlebotomy [facility] [address] [place] [address] M[facility], [facility] Draw [address] [place] [address] 09/22/2024 7:00 AM EDT Laboratory Lab Mobile Phlebotomy [facility] [address] [place] [address] [facility], [facility] [address] [place] [address] 09/28/2024 2:30 PM EDT Office Visit Hematology/Oncology [facility] [place] 200 [facility] [place] [phone] Ayaka Tatum CRNP [address] [facility] [place] [address] 09/29/2024 7:00 AM EDT Laboratory Lab Mobile Phlebotomy [facility] [address] [address] [address] [facility], [facility] Draw [address] [place] [address] 10/06/2024 7:00 AM EST Laboratory Lab Mobile Phlebotomy [facility] [address] [employer] [place] [address] M[facility], [facility] Draw [address] [place], [place] [address] 10/12/2024 10:20 AM EST Office Visit Pulmonary Medicine, [facility] [address] [place] [address] Jordan Stanley MD [address] [facility] [address] 10/13/2024 7:00 AM EST Laboratory Lab Mobile Phlebotomy [facility] [address] [place] [address] Mvmg, Gml [facility] Draw [address] [place] [address] 10/20/2024 7:00 AM EST Laboratory Lab Mobile Phlebotomy [facility] [address] [place] [address] M[facility], [facility] Draw [address] [employer] [place], [place] [address] 10/27/2024 7:00 AM EST Laboratory Lab Mobile Phlebotomy [facility] [address] [place], [place] [address] Mvmg, Gml Mobile Home Draw [address] [place], [place] [address] 10/30/2024 10:00 AM EST Office Visit Urology [place] Fitzpatrick [address] [place] [address] [address] Frank Peraza MD [address] [address] [address] Scheduled Procedures Name Priority Associated Diagnoses Date/Ti [...] Additional history exists CKD PHOS USE SMARTSET 00005 05/19/202505/02, 05/08/2024, 04/07/2024, Additional history exists Diabetic Foot Exam 05/19/2025 05/19/2024, 0 03/06/2023, 01/03/2022, Additional history exists CKD HGB USE SMARTSET 19895 06/23/202506/23, 06/23/2024, 06/11/2024, Additional history exists Sigmoidoscopy [...] this encounter Medical Devices Implanted Type Area Echocardiography Radiology Technologist Device Identifier Shelf Expiration Date Model / Serial / Lot Clareon Iol Aspheric Hydrophobic Acrylic Iol Implanted:Qty: 1 on 04/23/2023 by Cody Gonzalez DO at OR [facility] Lens Left: Eye 11/12/2025 CNA0T0 / [id number] / Viatorr Tips Endoprosthesis 8-10 Mm X 8cm / 2cm Implanted:Qty: 1 on 10/07/2020 by Go Alvarado MD at [facility] Right: Abdomen 03/03/2023 [id number] / / [id number] Description:Viatorr TIPS End oprosthesis 8-10 mm x 8cm / 2cm, Manufactored by [employer] Syr Pf 2ml Embospheres 100-300 - [id number] Implanted:Qty: 1 on 04/18/2021 by Kevin Lim DO at OR [facility] Left: Abdomen [employer] [id number] 11/25/2023 S220GH / / [id number] Lipiodol Injection - [id number] Implanted:Qty: 1 on 03/28/2022 at [facility] [employer] 03/01/2023 20300-37 01-2 / / [id number] Syr Pf 2ml Embospheres 100-300 - [id number] Implanted:Qty: 1 on 03/28/2022 at [facility] [employer] [id number] 08/31/2024 S220 / / [id number] -[id number] Clareon Iol Aspheric Hydrophobic Acrylic Iol Implanted:Qty: 1 on 04/02/2023 by Cody Gonzalez DO at [facility] Right: Eye JAZMIN 11/12/2025 CNA0T0 / [id number] / Syr Pf 2ml Embospheres 100-300 - [id number] Implanted:Qty: 1 on 06/11/2024 at [facility] [employer] [id number] 01/02/2027 S220 / / [id number] -[id number] Cath Diag Cobra 2 [id number] - [id number] Implanted:Qty: 1 on 06/11/2024 at [facility] [employer] [id number] 10/06/2026 H78 [id number] / / [id number] documented as of this encounter Advance Directives Documents on File Type Date Recorded 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
--- OUTSIDE RECORDS SUMMARY | 2024-07-05 06:50 | External Medical Summary | Summary of Care ---
Author Name Unknown Organization [facility] Address [address] [facility] [place] [address] Phone [phone] Care Team Providers Care Cut File Clerk Name Role Phone Kristen Vences DO Primary Care Provider [phone] Reason for Visit * Reason Onset Date Comments Advice 06/17/2024 Encounter Details Date Type Department Care Team (Late st Contact Info) Description 06/17/2024 Telephone Family Practice [facility] [address] [place] [address] Kristen Vences DO [address] [place] [address] Advice Allergies No known active allergiesdocumented as of this encounter (statuses as of 06/19/2024) Medications Medication Sig Dispensed Refills Start Date [...] as of this encounter (statuses as of 06/19/2024) Active Problems Problem Noted Date Diagnosed Date [...] as of this encounter (statuses as of 06/19/2024) Resolved Problems Problem Noted Date Diagnosed Date [...] as of this encounter (statuses as of 06/19/2024) Immunizations Name Administration Dates Next Due COVID-19 mRNA, LNP-s, No Pre serve, 2-Dose Series (Pfizer) 03/08/2021,02/15/2021 HepA Inact/HepB Recomb>=18yrs old 12/04/2019,04/2019,05/20/2019 11/19/2019 PPD 06/18/2017, 3,01/09/2012,06/2011 Pneumococcal Conjugate Vacc, 13 Valent (Prevnar) 05/01/2017 Pneumococcal Polysaccharide PPV23 (Pneumovax) 08/28/2022,10/25/2015,07/14/2012 Season Influenza, Quad, PF, Adjuvanted, 65+ Yrs, IM (FLUAD) 10/07/2020(Deferred: Patient Refused - pt says he already had his shot last month at [facility] and Mckinley Cobian made aware) [...] encounter Miscellaneous Notes * Telephone Encounter - Gudelia Yip LPN - 06/19/2024 7:23 AM EDT Pt coming in this afternoon and can address issue at that visit. * Telephone Encounter - Gudelia Yip LPN - 06/18/2024 11:23 AM EDT Called Josie's cell number and LM for her to return call to clarify message below, Dr Vences is not clear what they are asking. * Telephone Encounter - Kristen Vences DO - 06/18/2024 9:57 AM EDT Please clarify message Is pt currently in hospice? * Telephone Encounter - Riley Jones OSA - 06/17/2024 2:45 PM EDT Josie from [facility], said this PT will not be return back to home care, due to his condition. They Requested the evaluation, place in hospice care documented in this encounter Plan of Treatment Upcoming Encounters Date Type Department Care Team (Late st Contact Info) Description 06/19/2024 2:00 PM EDT Office Visit [facility] [address] [place] [address] Kristen Vences DO [address] [place] [address] 06/23/2024 7:00 AM EDT Laboratory Lab Mobile Phlebotomy [facility] [address] [place] [address] [facility], [facility] Draw [address] [place] [address] 06/23/2024 2:00 PM EDT Office Visit Hematology/Oncology [facility] [address] [place] [id number] Ayaka Tatum CRNP [address] [place], [place] [address] [address] 06/30/2024 7:00 AM EDT Laboratory Lab Mobile Phlebotomy [facility] [address] [place] [address] Mv[facility], G[facility] Home Draw [address] [place] [address] 07/07/2024 7:00 AM EDT Laboratory Lab Mobile Phlebotomy [facility] [address] [place] [address] Mv[facility], [facility] Draw [address] [place] [address] [address] 07/08/2024 1:00 PM EDT Office Visit Nephrology, [facility] [address] [place] [address] Franki Herbert MD [address] [place] [address] [address] 07/09/2024 9:40 AM EDT Office Visit Family Practice [facility] [address] [facility] [place] [address] Kristen Vences DO [facility] [place] [address] 07/14/2024 7:00 AM EDT Laboratory Lab Mobile Phlebotomy [facility] [address] [place] [address] Mvmg, Gml Mobile Home Draw [address] [place], [place] [address] 07/21/2024 7:00 AM EDT Laboratory Lab Mobile Phlebotomy [facility] [address] [place] [address] Mvmg, [facility]ml [facility] Draw [address] [place] [address] 07/23/2024 9:30 AM EDT Office Visit Cardiology, [facility] [place] [address] Carlee Salazar CRNP 132 [place] [address] 07/28/2024 7:00 AM EDT Laboratory Lab Mobile Phlebotomy [facility] [address] [place] [address] Mv[facility], Gml Mobile Home Draw [address] [place] [address] 07/28/2024 2:00 PM EDT Office Visit Nephrology, [facility] [address] [place] [address] Franki Herbert MD [address], [place] [address] 08/04/2024 7:00 AM EDT Laboratory Lab Mobile Phlebotomy [facility] [address] [place] [address] Mvmg, Gml Mobile Home Draw [address] [facility] [place], [place] [address] 08/11/2024 7:00 AM EDT Laboratory Lab Mobile Phlebotomy [facility] [address] [facility] [place], [place] [address] Mvmg, Gml Mobile Home Draw [address] [facility] [place] [address] 08/18/2024 7:00 AM EDT Laboratory Lab Mobile Phlebotomy [facility] [address] [facility] [place], [place] [address] Mvmg, Gml Mobile Home Draw [address] [facility] [place], [place] [address] 08/20/2024 10:15 AM EDT Office Visit Ophthalmology, [facility] 132 [facility] [place] [address] Cody Gonzalez, DO [address] [place] [address] [place] [address] 08/25/2024 7:00 AM EDT Laboratory Lab Mobile Phlebotomy [facility] [address] [facility] [place], [place] [address] Mvmg, Gml Mobile Home Draw [address] [facility] [place], [place] [address] 09/01/2024 7:00 AM EDT Laboratory Lab Mobile Phlebotomy [facility] [address] [facility] [place], [place] [address] Mvmg, Gml Mobile Home Draw [address] [facility] [place], [place] [address] 09/08/2024 7:00 AM EDT Laboratory Lab Mobile Phlebotomy [facility] [address] [facility] [place], [place] [address] Mvmg, Gml Mobile Home Draw [address] [facility] [place], [place] [address] 09/15/2024 7:00 AM EDT Laboratory Lab Mobile Phlebotomy [facility] [address] [facility] [place], [place] [address] Mvmg, Gml Mobile Home Draw [address] [facility] [place] [address] 09/22/2024 7:00 AM EDT Laboratory Lab Mobile Phlebotomy [facility] [address] [facility] [place] [address] Mvmg, Gml Mobile Home Draw [address] [facility] [place] [address] 09/29/2024 7:00 AM EDT Laboratory Lab Mobile Phlebotomy [facility] [address] [facility] [place] [address] Mvmg, Gml Mobile Home Draw [address] [facility] [place] [address] 10/06/2024 7:00 AM EST Laboratory Lab Mobile Phlebotomy [facility] [address] [facility] [place] [address] Mvmg, Gml Mobile Home Draw [address] [facility] [place] [address] 10/12/2024 10:20 AM EST Office Visit Pulmonary Medicine, [facility] 132 [facility] [place] [address] Jordan Stanley MD [address] [place] [address] [address] 10/13/2024 7:00 AM EST Laboratory Lab Mobile Phlebotomy [facility] [address] [facility] [place] [address] Mvmg, Gml Mobile Home Draw [address] [facility] [place] [address] 10/20/2024 7:00 AM EST Laboratory Lab Mobile Phlebotomy [facility] [address] [facility] [place] [address] Mvmg, Gml Mobile Home Draw [address] [facility] [place] [address] 10/27/2024 7:00 AM EST Laboratory Lab Mobile Phlebotomy [facility] [address] [facility] [place] [address] Mvmg, Gml Mobile Home Draw [address] [place] [address] 10/30/2024 10:00 AM EST Office Visit Urology [place] Fitzpatrick [address] [place] [address] Frank Peraza MD [address] [place] [address] Scheduled Procedures Name Priority Associated Diagnoses Date/Ti [...] Additional history exists CKD PHOS USE SMARTSET 26715 05/19/202505/02, 05/08/2024, 04/07/2024, Additional history exists Diabetic Foot Exam 05/19/2025 05/19/2024, 0 03/06/2023, 01/03/2022, Additional history exists CKD HGB USE SMARTSET 13909 06/11/202506/11, 06/09/2024, 06/09/2024, Additional history exists Sigmoidoscopy [...] this encounter Medical Devices Implanted Type Area Comber Tender Device Identifier Shelf Expiration Date Model / Serial / Lot Clareon Iol Aspheric Hydrophobic Acrylic Iol Implanted:Qty: 1 on 04/23/2023 by Cody Gonzalez DO at OR [facility] Lens Left: Eye 11/12/2025 CNA0T0 / [id number] / Viatorr Tips Endoprosthesis 8-10 Mm X 8cm / 2cm Implanted:Qty: 1 on 10/07/2020 by Go Alvarado MD at [facility] Right: Abdomen 03/03/2023 [id number] / / [id number] Description:Viatorr TIPS End oprosthesis 8-10 mm x 8cm / 2cm, Manufactored by [employer] Syr Pf 2ml Embospheres 100-300 - [id number] Implanted:Qty: 1 on 04/18/2021 by Kevin Lim DO at OR [facility] Left: Abdomen [employer] [id number] 11/25/2023 S220GH / / [id number] -5 Lipiodol Injection - [id number] Implanted:Qty: 1 on 03/28/2022 at [facility] [employer] 03/01/2023 14993-27 01-2 / / [id number] Syr Pf 2ml Embospheres 100-300 - [id number] Implanted:Qty: 1 on 03/28/2022 at [facility] [employer] [id number] 08/31/2024 S220GH / / [id number] -5 Clareon Iol Aspheric Hydrophobic Acrylic Iol Implanted:Qty: 1 on 04/02/2023 by Cody Gonzalez DO at OR [facility] Right: Eye JAZMIN 11/12/2025 CNA0T0 / [id number] / Syr Pf 2ml Embospheres 100-300 - [id number] Implanted:Qty: 1 on 06/11/2024 at [facility] [employer] [id number] 01/02/2027 S220GH / / [id number] -[id number] Cath Diag Cobra 2 [id number] - [id number] Implanted:Qty: 1 on 06/11/2024 at [facility] [employer] [id number] 10/06/2026 H78 [id number] / / [id number] documented as of this encounter Advance Directives Documents on File Type Date Recorded 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
--- OUTSIDE RECORDS SUMMARY | 2024-07-05 06:50 | External Medical Summary | Summary of Care ---
Author Name Unknown Organization [facility] Address [address] [place] [address] Phone [phone] Care Team Providers Care Asbestos Handler Name Role Phone VangieKristen shahid Caryn SANDOVAL Primary Care Provider [phone] Encounter Details Date Type Department Care Team (Late st Contact Info) Description 06/15/2024 9:45 AM EDT Scheduled Telephone Care Coordination and Integration [address], [place] [phone] Kriss Mays, [facility] Blower Room Attendant [address], [place] [phone] Allergies No known active allergiesdocumented as of this encounter (statuses as of 06/15/2024) Medications Medication Sig Dispensed Refills Start Date [...] as of this encounter (statuses as of 06/15/2024) Active Problems Problem Noted Date Diagnosed Date [...] as of this encounter (statuses as of 06/15/2024) Resolved Problems Problem Noted Date Diagnosed Date [...] as of this encounter (statuses as of 06/15/2024) Immunizations Name Administration Dates Next Due COVID-19 [...] Phlebotomy [facility] [address] [place] [address] [facility] [address] [place] [address] [address] 06/23/2024 7:00 AM EDT Laboratory Lab Mobile Phlebotomy [facility] [address] [place] [address] [facility] [address] [place] [address] 06/23/2024 2:00 PM EDT Office [place] [facility] [place] [address] [place] [phone] Ayaka Tatum CRNP [address] [place] [id number] 06/30/2024 7:00 AM EDT Laboratory Lab Mobile Phlebotomy [facility] [address] [place] [address] [facility] [address] [address] 07/07/2024 7:00 AM EDT Laboratory Lab Mobile Phlebotomy [facility] [address] [place], [place] [address] [facility] [address] [facility] [place] [address] 07/08/2024 1:00 PM EDT Office Visit Nephrology, [facility] [address] [place], [place] [address] Franki Herbert MD [address] [place], [place] [address] 07/09/2024 9:40 AM EDT Office Visit Family Practice [facility] [address] [place] [address] Kristen Vences DO [address] [place] [address] 07/14/2024 7:00 AM EDT Laboratory Lab Mobile Phlebotomy [facility] [address] [facility] [place], [place] [address] [facility] [address] [facility] [place], [place] [address] 07/21/2024 7:00 AM EDT Laboratory Lab Mobile Phlebotomy [facility] [address] [place], [place] [address] [facility] [address] [facility] [place], [place] [address] 07/23/2024 9:30 AM EDT Office Visit Cardiology, [facility] [address] [place] [address] Carlee Salazar CRNP [address] [place] [address] 07/28/2024 7:00 AM EDT Laboratory Lab [facility] Phlebotomy [facility] [address] [place] [address] [facility] [address] [place] [address] 07/28/2024 2:00 PM EDT Office Visit Nephrology, [facility] [address] [place], [place] [address] Franki Herbert MD [address] [place], [place] [address] 08/04/2024 7:00 AM EDT Laboratory Lab [facility] Phlebotomy [facility] [address] [place] [address] [facility] [address] [place], [place] [address] 08/11/2024 7:00 AM EDT Laboratory Lab Mobile Phlebotomy [facility] [address] [employer] [address] [place], [place] [address] [facility] [address] [place], [place] [address] 08/18/2024 7:00 AM EDT Laboratory Lab [facility] Phlebotomy [facility] [address] [place], [place] [address] [facility] [place], [place] [address] 08/20/2024 10:15 AM EDT Office Visit Ophthalmology, [facility] [address] [facility] [place] [address] Cody Gonzalez, DO [facility] [address] 08/25/2024 7:00 AM EDT Laboratory Lab Mobile Phlebotomy [facility] [address] [place], [place] [address] [facility] [address] [facility] [place], [place] [address] 09/01/2024 7:00 AM EDT Laboratory Lab [facility] Phlebotomy [facility] [address] [place] [address] [facility] [address] [facility] [place] [address] 09/08/2024 7:00 AM EDT Laboratory Lab [facility] Phlebotomy [facility] [address] [place] [address] [facility] [address] [facility] [place] [address] 09/15/2024 7:00 AM EDT Laboratory Lab Mobile Phlebotomy [facility] [address] [place] [address] [facility] [address] [place] [address] 09/22/2024 7:00 AM EDT Laboratory Lab Mobile Phlebotomy [facility] [address] [place] [address] [facility] [address] [facility] [place] [address] 09/29/2024 7:00 AM EDT Laboratory [facility] Phlebotomy [facility] [address] [place] [address] [facility] [address] [facility] [place] [address] 10/06/2024 7:00 AM EST Laboratory [facility] Phlebotomy [facility] [address] [place], [place] [address] [facility] [address] [facility] [address] 10/12/2024 10:20 AM EST Office Visit Pulmonary Medicine, [facility] 132 [facility] [place] [address] Jordan Stanley MD [address] [place] [address] 10/13/2024 7:00 AM EST Laboratory [facility] Phlebotomy [facility] [address] [place], [place] [address] [facility] [address] [place] [address] 10/20/2024 7:00 AM EST Laboratory Lab Mobile Phlebotomy [facility] [address] [facility] [place], [place] [address] [facility] [address] [facility] [place], [place] [address] 10/27/2024 7:00 AM EST Laboratory [facility] Phlebotomy [facility] [address] [facility] [place] [address] [facility] [address] [facility] [place], [place] [address] 10/30/2024 10:00 AM EST Office Visit Urology Lynnette Fitzpatrick [address] [place] [address] Frank Peraza MD [address] [place] [phone] Scheduled Procedures Name Priority Associated Diagnoses Date/Ti [...] Additional history exists CKD PHOS USE SMARTSET 48564 05/19/2025 06/07/2024, 05/08/2024, 04/07/2024, Additional history exists Diabetic Foot Exam 05/19/2025 05/19/2024, 0 03/06/2023, 01/03/2022, Additional history exists CKD HGB USE SMARTSET 38451 06/11/202506/11, 06/09/2024, 06/09/2024, Additional history exists Sigmoidoscopy [...] this encounter Medical Devices Implanted Type Area Industrial Ecology Technician Device Identifier Shelf Expiration Date Model / Serial / Lot Clareon Iol Aspheric Hydrophobic Acrylic Iol Implanted:Qty: 1 on 04/23/2023 by Cody Gonzalez DO at OR [facility] Lens Left: Eye 11/12/2025 CNA0T0 / [id number] / Viatorr Tips Endoprosthesis 8-10 Mm X 8cm / 2cm Implanted:Qty: 1 on 10/07/2020 by Go Alvarado MD at [facility] Right: Abdomen 03/03/2023 [id number] / / [id number] Description:Viatorr TIPS End oprosthesis 8-10 mm x 8cm / 2cm, Manufactored by [employer] Syr Pf 2ml Embospheres 100-300 - [id number] Implanted:Qty: 1 on 04/18/2021 by Kevin Lim DO at OR [facility] Left: Abdomen [employer] [id number] 11/25/2023 S220GH / / [id number] Lipiodol Injection - [id number] Implanted:Qty: 1 on 03/28/2022 at [facility] [employer] 03/01/2023 [id number] / / [id number] Syr Pf 2ml Embospheres 100-300 - [id number] Implanted:Qty: 1 on 03/28/2022 at [facility] [employer] [id number] 08/31/2024 S220GH / / [id number] Clareon Iol Aspheric Hydrophobic Acrylic Iol Implanted:Qty: 1 on 04/02/2023 by Cody Gonzalez DO at OR [facility] Right: Eye [employer] 11/12/2025 CNA0T0 / [id number] / Syr Pf 2ml Embospheres 100-300 - [id number] Implanted:Qty: 1 on 06/11/2024 at [facility] [employer] [id number] 01/02/2027 S220GH / / [id number] Cath Diag Cobra 2 [id number] - [id number] Implanted:Qty: 1 on 06/11/2024 at [facility] [employer] [id number] 10/06/2026 [id number] / / [id number] documented as of this encounter Advance Directives Documents on File Type Date Recorded Patient Enamel Applier Expl anation Advance Directives and Living Will 12/11/2022 ADVANCE DIRECTIVE / LIVING WILL LIVING WILL Power of Control Analyst 12/11/2022 POWER OF A TTORNEY * Full [...] Discussed due to patient's condition Care Teams Asbestos Handler Relationship Specialty Start Date End Date Kristen Vences DO [address] [address] PCP - General Family Medicine 05/19/24 documented as of this encounter
[2024-07-05 07:28] LABS: Basophils # (auto) 0.01 K/uL (0.00-0.20); Basophils % (auto) 0.4 %; Eosinophils # (auto) 0.21 K/uL (0.00-0.50); Eosinophils % (auto) 7.4 %; Hematocrit (blood only) 24.3 % (42.0-52.0); Hemoglobin 8.2 g/dl (14.0-18.0); Immature Granulocytes # (auto) 0.01 K/uL (0.01-0.20); Immature Granulocytes % (auto) 0.4 %; Lymphocytes # (auto) 0.53 K/uL (1.20-3.40); Lymphocytes % (auto) 18.6 %; Mean Corpuscular Hemoglobin 30.7 pg (25.0-34.0); Mean Corpuscular Hgb Conc 33.7 g/dL (32.0-36.0); Mean Platelet Volume 11.4 fL (9.4-12.4); Monocytes # (auto) 0.15 K/uL (0.11-0.59); Monocytes % (auto) 5.3 %; Neutrophils # (auto) 1.94 K/uL (1.40-6.50); Neutrophils % (auto) 67.9 %; Platelet Count 56 K/uL (130-400); RDW Coefficient of Variation 18.8 % (11.5-14.5); RDW Standard Deviation 62.6 fL (36.4-46.3); Red Blood Count 2.67 M/uL (4.70-6.10); White Blood Count 2.85 K/ul (4.8-10.8)
[2024-07-05 07:31] LABS: Est GFR (African American) 70.8 ml/min; Potassium 4.1 mmol/L (3.5-5.1)
[2024-07-05 07:32] LABS: Albumin Level 3.1 gm/dl (3.4-5.0); BUN Creatinine Ratio 24.8 (10-20); Calcium 8.5 mg/dl (8.6-10.3); Est GFR (Non-African American) 61.1 ml/min; Globulin 3.2 gm/dl (2.5-4.0); Total Protein 6.3 gm/dl (6.0-8.3)
[2024-07-05 07:38] LABS: Troponin I High Sensitivity 9.5 pg/ml (0-20)
[2024-07-05 07:53] LABS: INR 1.2 (0.9-1.1); Prothrombin Time 13.1 Seconds (9.0-12.0)
[2024-07-05 07:56] LABS: Appearance Urine Turbid (Clear); Bacteria Urine Automated None Seen (None Seen); Bilirubin Urine 1+ (Negative); Blood Urine 3+ (Negative); Color Urine Red; Epithelial Cell Urine Auto 0-2 /hpf (0-2); Glucose Urine UA Trace (Negative); Ketones Urine Negative (Negative); Leukocyte Esterase Urine 2+ (Negative); Nitrite Urine Negative (Negative); Protein Urine 3+ (Negative); RBC Urine Automated >20 /hpf (0-2); Urobilinogen Urine Negative (Negative); WBC Urine Automated >50 /hpf (0-5); pH Urine 5.5 (4.5-7.5)
--- NOTE | 2024-07-05 08:07 | CT Scan Report ---
HEAD CT NONCONTRAST CT DOSE: HISTORY: Trauma TECHNIQUE: Multiaxial CT images of the head were performed without the use of intravenous contrast. A utomated exposure control was utilized for this study. A dose lowering technique was utilized adheri ng to the principles of ALARA. Comparison: Head CT 09/21/2023. Findings: Mild mucosal thickening within the maxillary sinuses. The mastoid air cells are clear. The calvarium and skull base are intact. There is no mass, hematoma, midline shift, acute infarct. White matter hypodensity is nonspecific but suggestive of microvascular ischemic change. The ventricles and sulci demonstrate mild age-related involutional changes. Impression: No acute intracranial abnormality. ACT 112: Negative or not required by law. Electronically signed by: Abdoul Gonzalez M.D. 07/05/2024 8:05 AM
--- NOTE | 2024-07-05 08:10 | CT Scan Report ---
CERVICAL SPINE CT CT DOSE: 1495.96 mGy.cm HISTORY: Trauma TECHNIQUE: Multiaxial CT images of the cervical spine were performed and reformatted in the sagittal and coronal plane without the use of contrast. A dose lowering technique was utilized adhering to th e principles of ALARA. COMPARISON: Cervical spine CT 06/14/2023. FINDINGS: No fractures. No subluxation. Prevertebral soft tissues and the C1-C2 interval are intact. No pneumothorax. IMPRESSION: No fractures within the cervical spine. ACT 112: Negative or not required by law. Electronically signed by: Abdoul Gonzalez M.D. 07/05/2024 8:08 AM
--- NOTE | 2024-07-05 08:13 | CT Scan Report ---
MAXILLOFACIAL CT CT DOSE: HISTORY: Trauma TECHNIQUE: Multiaxial CT images of the maxillofacial region were performed and reformatted in the cor onal plane without the use of contrast. A dose lowering technique was utilized adhering to the princ iplstefanie of KIMBERLY. COMPARISON: None. FINDINGS: The visualized cervical spine, skull base, pterygoid plates, nasal bones, lamina papyracea, orbital floors, mandible, and zygomatic arches are intact. No fractures. The orbits are unremarkable . A periapical lucency at ADA 14. Multiple dental caries are noted IMPRESSION: No fractures within the maxillofacial region. Periodontal disease as described above. ACT 112: Negative or not required by law. Electronically signed by: Abdoul Gonzalez M.D. 07/05/2024 8:12 AM
[2024-07-05] MEDS: LACTULOSE SYRUP 30 GM/45 ML UDP PO STA (08:35)
--- NOTE | 2024-07-05 09:40 | CT Scan Report ---
CT chest diagnostic wo con, CT abd pelvis wo con, CT thoracic spine wo con, CT lumbar spine wo con CT DOSE: 2231.45 mGy.cm HISTORY: trauma TECHNIQUE: Multiaxial CT images of the chest, abdomen, and pelvis were performed without contrast. M ultiaxial CT images of the thoracic and lumbar spine were performed without contrast and reformatted in the sagittal and coronal planes. A dose lowering technique was utilized adhering to the principles of ALARA. COMPARISON: Abdomen and pelvis CT 06/13/2024. FINDINGS: Chest CT: No acute fractures within the chest. The central airways are patent. No pneumothorax. There is a punctate calcified granuloma within the left upper lobe. No focal lung consolidations to sugges t a pneumonia. No evidence for pulmonary edema. Mild bilateral gynecomastia. Mild calcified plaque wi thin the normal caliber thoracic aorta. There are severe coronary artery calcifications noted. There is a trace pericardial effusion. No pleural effusions. Normal esophagus. No mediastinal hematoma or l ymphadenopathy. The heart is borderline enlarged. Thoracic spine CT: Mild chronic compression deformities from T11 through L2, unchanged. No acute frac ture or subluxation within the thoracic spine. Paravertebral soft tissues are unremarkable. Abdomen and pelvis CT: No pneumoperitoneum. No pneumatosis. No acute fractures identified. Cirrhotic liver with a TIPS in place. This remains unchanged. The spleen remains enlarged. There is a small maria de jesus unt of ascites which is similar to the prior study. Cholelithiasis. No gallbladder wall thickening. T here is a 3.7 cm left hepatic lobe mass on image 42. This is similar to the prior study. The addition al left hepatic lobe mass appears to have decreased in size and measures 16 mm. No new hepatic masses identified. The adrenal glands are unremarkable. No hydronephrosis. No retroperitoneal hematoma or l ymphadenopathy. A 1.7 cm peripherally calcified cystic lesion again noted at the pancreatic head. Thi s remains unchanged. 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 Calcified plaque within the normal caliber abdominal aorta. Bladder wall thickening with adjacent flat stranding. A few bladder s tones are noted the prostate gland remains enlarged. Multiple colonic diverticula. There is an inflam ed diverticulum within the proximal sigmoid colon on image 233 consistent with an acute diverticuliti s. No perforation or abscess at this time. No dilated loops of bowel to suggest an obstruction. Andreia l appendix. Lumbar spine CT: Mild chronic compression deformities from T11 through L2, unchanged. No acute fractu re or subluxation within the lumbar spine. Paravertebral soft tissues are unremarkable. IMPRESSION: 1. No acute traumatic process within the chest, abdomen, or pelvis. 2. Chronic compression deformities again noted from T11 through L2, unchanged. No acute fractures wit hin the thoracic or lumbar spine. 3. Cirrhotic liver with sequela of portal hypertension which is similar to the prior study. 4. There are 2 left hepatic lobe masses are again noted one of which has decreased in size in the int erval. 5. Bladder wall thickening with surrounding inflammatory change. This suggests a cystitis. 6. Evidence for acute sigmoid diverticulitis. No perforation or abscess. 7. Cholelithiasis. 8. Bladder calculi again noted. 9. Additional findings as described above. ACT 112: Negative or not required by law. Electronically signed by: Abdoul Gonzalez M.D. 07/05/2024 9:39 AM
--- NOTE | 2024-07-05 09:41 | Electrocardiogram Report ---
Test Reason : Blood Pressure : / mmHG Vent. Rate : 060 BPM Atrial Rate : 060 BPM P-R Int : 182 ms QRS Dur : 090 ms QT Int : 496 ms P-R-T Axes : 062 -18 051 degrees QTc Int : 496 ms Sinus rhythm with occasional Premature ventricular complexes Prolonged QT Abnormal ECG When compared with ECG of 13-JUN-2024 06:51, Premature ventricular complexes are now Present Nonspecific T wave abnormality, improved in Anterolateral leads Confirmed by Jose Ramon Rizvi ([id number]) on 07/05/2024 9:41:16 AM Referred By: REFERRED SELF Confirmed By:Greyson Rizvi
--- NOTE | 2024-07-05 09:59 | History & Physical Report ---
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 Unable to elicit any history from the patient due to mental status. Was able to get ahold of the patient's son, Alex, who is POA and executor - his phone number is the following: #[phone]. However, the line became disconnected due to connectivity issues and ultimately were were not able to elicit a ton of information from him. He will be in this afternoon around 12 o'clock to discuss the patient's code status and goals of care. Hepatic Encephalopathy Acute Sigmoid Diverticulitis Acute Urinary Tract Infection Patient oriented to self only and rather confused in ED; He believed he was at home during his conversation w/ Dr. Walton. Patient was initially a trauma alert in the ED after being found lying outside on the ground naked. Full trauma work-up was initiated in the ED and the imaging was rather benign except for the incidental finding of acute sigmoid diverticulitis. Will keep patient on bowel rest for now 2/2 diverticulitis - sips & chips only. Patient was afebrile and hemodynamically stable at time of admission. Ammonia level significantly elevated at 167 - suggesting hepatic encephalopathy. He was administered oral lactulose in the ED; Patient tolerated this medication well according to nursing staff. Will continue w/ scheduled lactose QID; Titrate to 3-4 BMs/daily, closely monitor ammonia level in AM. UA appears infected - Patient was given IV Zosyn in the ED; Will continue ABX coverage w/ IV Zosyn for now. Urine culture pending - follow results closely. Lactate 2.4 on admission; Will start patient on gentle IVF x 1 bag. Repeat lactate level in AM, follow results closely. Diabetes Mellitus Type II [Insulin-Dependent] Holding [employer] diabetic meds; Initiating basal/bolus insulin regimen, BSG checks ACHS. Hgb A1c 8.0 on 05/18/24; Glycemic pharmacy consult placed given patient's complex medical history. CKD Stage III Creatinine 1.17 on admission [baseline Cr ~1.1 per chart review]. Avoid nephrotoxic medications when able, holding [employer] Lasix and spironolactone for now. Liver Cirrhosis 2/2 FOFANA H/O Esophageal Varices & Gastric Antral Vascular Ectasia Per chart review, appears pt requires paracentesis [id number]. A therapeutic paracentesis was performed on 06/15 with 1.2 L removed and discarded from a pocket of fluid identified in the left lower quadrant. Alk phos 170 on admission; AST and ALT both WNL. Will continue [employer] Xifaxan BID. [employer] lactulose now scheduled QID 2/2 presenting hepatic encephalopathy. Holding [employer] cholestyramine for now. May benefit from GI consultation. Hepatocellular Carcinoma Chronic Anemia & Thrombocytopenia Pt underwent transarterial bland embolization at [facility] on 06/11. Pt follows w/ [facility] [Dr. Ramires]. Baseline Hgb ~8 per chart review; Hgb 8.2 on admission. Plt count 56K on admission - appears rather stable per chart review [2/2 liver cirrhosis]. Pt has required frequent blood transfusions in the past. He was also treated multiple times w/ iron infusions. Will hold [employer] iron supplementation 2/2 SE of constipation, continue to monitor Hgb level closely. Patient saw [facility] on 07/02 - Patient was receptive to the option of [facility]. H/O Prostate Cancer & Radiation Cystitis Completed radiation therapy to the prostate on 04/05/21; Pt follows w/ [facility] [Dr. Ramires]. Pt also follows w/ [facility] [Dr. Frank Peraza]. History of radiation cystitis s/p cystourethroscopy with clot evacuation and fulguration. Can continue [employer] finasteride, oxybutynin and solifenacin. H/O Gout: Can continue [employer] allopurinol. Anxiety & Depression: Can continue [employer] duloxetine. Will hold mirtazapine for now 2/2 sedating effects. DVT Prophylaxis: SCDs/TEDs - Secondary to patient's chronic pancytopenia. Code Status: PER ABOVE - FULL CODE for now pending discussion with patient's son. PCP: Kristen Vences DO Disposition: Admit to Med/Surg + Telemetry Patient seen in collaboration with Dr. Walton. Please see addendum. I spent a total of 75 minutes coordinating, documenting, and providing care for this patient excluding time spent in the performance of separately billed services. This included personally reviewing all current laboratories and imaging studies, medical reconciliation, outpatient chart review and discussion with specialists. This chart was completed in part utilizing Speech Voice Recognition Software. Grammatical errors, random word insertions, pronoun errors, and incomplete sentences are an occasional consequence of this system due to software limitations, ambient noise, and hardware issues. Any formal questions or concerns about the content, text, or information contained within the body of th is dictation should be directly addressed to the provider for clarification. History of Present Illness Chief Complaint: Trauma Primary Care Provider: Kristen Vences DO Luis Hale is a 74y/o M with PMHx of DM type II [on basal insulin], CKD stage III, dyslipidemia, chronic gout of multiple sites, restrictive lung disease, pulmonary hypertension, gastric antral vascular ectasia, esophageal varices, history of portal vein thrombosis, cirrhosis of liver, GERD, history of liver cell carcinoma, prostate cancer, radiation cystitis, acquired thrombocytopenia, chronic anemia and other problems listed below who presented to the ED via EMS after being found naked outside lying on the ground by his . History obtained from chart review and discussion with ED provider. Patient seen in ED with Dr. Walton. Unable to elicit any history from the patient due to mental status. Was able to get ahold of the patient's son, Alex, who is POA and executor - his phone number is the following: #[phone]. However, the line became disconnected due to connectivity issues and ultimately were were not able to elicit a ton of information from him. He will be in this afternoon around 12 o'clock to discuss the patient's code status and goals of care. Patient was initially a trauma alert in the ED after being found lying outside on the ground naked. Full trauma work-up was initiated in the ED and the imaging was rather benign except for the incidental finding of acute sigmoid diverticulitis. Patient is currently oriented to self only and is rather confused - he believes he is at home. In the ED, patient was afebrile and hemodynamically stable. Ammonia level significantly elevated suggesting hepatic encephalopathy. UA suggestive of UTI too. He was administered oral lactulose and IV Zosyn in the ED. Allergies Allergy/AdvReac Type Severity Reaction Status Date / Time No Known Allergies Allergy Mild Verified 06/29/24 08:29 Home Medications Medication Instructions Recorded Confirmed Type allopurinol 100 mg tablet 200 mg PO QAM 05/16/20 07/05/24 History Lactobacil.acidophilus-Bifido.animalis 1 cap PO QAM 05/17/23 07/05/24 History 5 billion cell sprinkle capsule (Probiotic) ferrous sulfate 325 mg (65 mg 650 mg PO QAM 05/17/23 07/05/24 History iron) tablet (iron) zroactrdssta-jbz-fguub acid-vit 1 tab PO DAILY 05/17/23 07/05/24 History K-lycop 400 mcg-20 mcg-370 mcg tablet (Men's 50 Plus Multivitamin) duloxetine 30 mg capsule,delayed 30 mg PO QAM 02/02/24 07/05/24 History release pantoprazole 40 mg tablet,delayed 40 mg PO AMPM 02/02/24 07/05/24 History release rifaximin 550 mg tablet (Xifaxan) 550 mg PO AMHS 02/02/24 07/05/24 History finasteride 5 mg tablet 5 mg PO QAM 03/20/24 07/05/24 History lactulose 10 gram oral packet 10 g PO BID PRN . 03/20/24 07/05/24 History (Kristalose) mirtazapine 30 mg tablet 30 mg PO HS 03/20/24 07/05/24 History acetylcysteine 600 mg capsule 600 mg PO DAILY 05/03/24 07/05/24 History cholestyramine (with sugar) 4 gram 1 ea PO BID 05/20/24 07/05/24 History powder for susp in a packet insulin glargine 100 unit/mL (3 25 unit subcut QPM 05/20/24 07/05/24 History mL) subcutaneous pen (Lantus Solostar U-100 Insulin) magnesium chloride 64 mg 64 mg PO DAILY 05/20/24 07/05/24 History (magnesium chloride) tablet,delayed release (Mag 64) oxybutynin chloride 5 mg tablet 5 mg PO TID PRN Bladder Spasms 05/20/24 07/05/24 History solifenacin 5 mg tablet 5 mg PO DAILY 05/20/24 07/05/24 History triamcinolone acetonide 0.1 % 1 applic topical DAILY 05/20/24 07/05/24 History topical cream zinc gluconate 50 mg tablet 50 mg PO DAILY ##0 05/20/24 07/05/24 History furosemide 40 mg tablet 40 mg PO QAM #30 tabs 05/30/24 07/05/24 Rx spironolactone 100 mg tablet 100 mg PO QAM #30 tabs 05/30/24 07/05/24 Rx Past Med/Surg History Problem List (Updated 07/05/24 @ 11:45 by Garrett Walton MD) Hepatic encephalopathy Sigmoid diverticulitis Acute urinary tract infection Encephalopathy Elevated lactic acid level Epigastric abdominal pain Hypomagnesemia (Acute) Elevated liver enzymes (Acute) Acute hyperglycemia (Acute) Anemia (Acute) Precordial chest pain (Acute) Increased anion gap metabolic acidosis Abdominal pain, generalized Advanced care planning/counseling discussion Palliative care by specialist Acute on chronic blood loss anemia Elevated brain natriuretic peptide (BNP) level (Acute) Pancytopenia (Acute) Abdominal ascites (Acute) Abdominal pain (Acute) Hypocalcemia (Acute) Hyperglycemia (Acute) Elevated brain natriuretic peptide (BNP) level (Acute) Acute kidney injury superimposed on chronic kidney disease (Acute) Thrombocytopenia (Acute) Anemia requiring transfusions (Acute) Pancytopenia (Acute) Chest pain (Acute) LUCRETIA (acute kidney injury) Hematuria (Acute) Anemia (Acute) Acute urinary retention (Acute) DM type 2 (diabetes mellitus, type 2) Irradiation cystitis with hematuria UTI (urinary tract infection) (Acute) Anemia (Acute) 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 (Acute) Closed T12 spinal fracture (Acute) Prostate cancer (Acute) Hx radiation Insulin dependent type 2 diabetes mellitus Medical History (Updated 07/05/24 @ 11:45 by Garrett Walton MD) CKD (chronic kidney disease) stage 3, GFR 30-59 ml/min Thrombocytopenia DM type 2 (diabetes mellitus, type 2) Hx of malignant neoplasm of prostate History of blood transfusion 11/2022 Hepatocellular carcinoma Spinal fracture of T12 vertebra History of recent hospitalization 06/2023 [facility] hepatic encephalopathy Liver spots Under surveillance, stable per patient Anxiety and depression 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 Anemia of chronic disease under surveillance History of panic attacks Gout No current issues GERD (gastroesophageal reflux disease) GAVE (gastric antral vascular ectasia) Hypertension Hx Esophageal varices EGD 05/22/23 ([facility]): Grade 1 varices in distal esophagus without high risk stigmata Upper GI bleed Hx Psoriasis Surgical History History of left cataract surgery History of right cataract surgery History of prostate biopsy malignant S/P TIPS (transjugular intrahepatic portosystemic shunt) History of esophagogastroduodenoscopy (EGD) Most recent 05/2023 [facility] History of colonoscopy with polypectomy History of tonsillectomy and adenoidectomy History of abdominal paracentesis Multiple, most recent 01/2023 Family History Father , "3/4 liver gone due to drinking" Colorectal cancer, Onset Age: 63 Mother Lung cancer Daughter Cancer cervical and thyroid cancers Ovarian cancer Other No family history of adverse response to anesthesia 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 Smoking Status: Unknown if ever smoked Second Hand Exposure: No; Do You Dip or Chew Tobacco: No; Hx Alcohol Use: No Hx Substance Use: No Preferred Language: Lebanese Communication Ability: Effective Visual Impairment: No Limitations Hearing Ability: Normal 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 Required: No Beliefs That Will Affect Care: None marital status: Current Living Situation: Spouse Current Living Situation Comment: 1 level single family home 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 How many Children do You have: 6 How many Children do You have Comment: one , eldest daughter in her sleep from seizure disorder Feels Safe at Home: Yes Childhood Exposure to Second-Hand Smoke: Yes Diet Comment: "I watch my sugar, average fasting is 140 mg/dl" caffeine: Yes (cola, sugar free, decaf) during the past year weight has: remained stable Dental Care, Regularly: No Physical Activity Frequency: Does not Exercise Seatbelt Use: always Sunscreen Use: Yes Assistive Devices: Oxygen - Continuous and Walker Review of Systems Review of Systems: Unable to obtain secondary to patient's mental status. Physical Exam Physical Exam: Please refer to Dr. Walton's addendum for physical examination findings. Results & Data Results & Data Vital Signs (Past 12 Hours) Vital Signs Temp Pulse Pulse Resp BP BP Pulse Ox 07/05/24 09:33 85 99 07/05/24 09:30 143/91 H 07/05/24 09:30 143/91 H 07/05/24 09:18 71 100 07/05/24 09:15 90 16 100 07/05/24 09:03 74 19 95 07/05/24 09:00 169/83 H 07/05/24 09:00 169/83 H 07/05/24 09:00 74 20 169/83 H 100 07/05/24 08:31 151/85 H 07/05/24 08:30 74 07/05/24 08:18 161/53 H 07/05/24 08:18 161/53 H 07/05/24 08:15 100 07/05/24 08:09 99 07/05/24 08:00 71 16 161/53 H 98 07/05/24 07:30 100 07/05/24 07:15 63 15 100 07/05/24 07:06 99 07/05/24 07:03 62 14 99 07/05/24 06:55 36.7 C 61 17 154/72 H 99 07/05/24 06:55 36.7 C 61 17 154/72 H 99 O2 Del Method 07/05/24 09:33 07/05/24 09:30 07/05/24 09:30 07/05/24 09:18 07/05/24 09:15 07/05/24 09:03 07/05/24 09:00 07/05/24 09:00 07/05/24 09:00 Room Air 07/05/24 08:31 07/05/24 08:30 07/05/24 08:18 07/05/24 08:18 07/05/24 08:15 07/05/24 08:09 07/05/24 08:00 Room Air 07/05/24 07:30 Room Air 07/05/24 07:15 07/05/24 07:06 Room Air 07/05/24 07:03 07/05/24 06:55 Room Air 07/05/24 06:55 Room Air Laboratory Results Short CBC 07/05/24 Range/Units 06:50 WBC 2.85 L (4.8-10.8) K/ul Hgb 8.2 L (14.0-18.0) g/dl Hct 24.3 L (42.0-52.0) % Plt Count 56 L (130-400) K/uL BMP 07/05/24 06:50 Sodium 141 Potassium 4.1 Chloride 113 H Carbon Dioxide 20 L BUN 29 H Creatinine 1.17 Glucose 201 H Calcium 8.5 L Cardiac Enzymes 07/05/24 Range/Units 06:50 Total Creatine Kinase 26 L (30-223) U/L Liver Function 07/05/24 Range/Units 06:50 Total Bilirubin 4.0 H (0.2-1.0) mg/dl AST 34 (13-39) U/L ALT 17 (7-52) U/L Alkaline Phosphatase 170 H (34-104) U/L Albumin 3.1 L (3.4-5.0) gm/dl Urine 07/05/24 Range/Units Unknown Urine Color Red Urine Appearance Turbid A (Clear) Urine pH 5.5 (4.5-7.5) Ur Specific [place] 1.020 (1.000-1.030) Urine Protein 3+ H (Negative) Urine Glucose (UA) Trace H (Negative) Diagnostic Findings Cervical Spine CT 07/05/24 07:[address] DOSE: 1495.96 mGy.cm HISTORY: Trauma TECHNIQUE: Multiaxial CT images of the cervical spine were performed and reformatted in the sagittal and coronal plane without the use of contrast. A dose lowering technique was utilized adhering to the principles of ALARA. COMPARISON: Cervical spine CT 06/14/2023. FINDINGS: No fractures. No subluxation. Prevertebral soft tissues and the C1-C2 interval are intact. No pneumothorax. IMPRESSION: No fractures within the cervical spine. ACT 112: Negative or not required by law. Electronically signed by: Abdoul Gonzalez M.D. 07/05/2024 8:[address] 07/05/24 07:[address] DOSE: HISTORY: Trauma TECHNIQUE: Multiaxial CT images of the maxillofacial region were performed and reformatted in the coronal plane without the use of contrast. A dose lowering technique was utilized adhering to the principles of ALARA. COMPARISON: None. FINDINGS: The visualized cervical spine, skull base, pterygoid plates, nasal bones, lamina papyracea, orbital floors, mandible, and zygomatic arches are intact. No fractures. The orbits are unremarkable. A periapical lucency at ADA 14. Multiple dental caries are noted IMPRESSION: No fractures within the maxillofacial region. Periodontal disease as described above. ACT 112: Negative or not required by law. Electronically signed by: Abdoul Gonzalez M.D. 07/05/2024 8:[address] 07/05/24 07:[address] DOSE: HISTORY: Trauma TECHNIQUE: Multiaxial CT images of the head were performed without the use of intravenous contrast. Automated exposure control was utilized for this study. A dose lowering technique was utilized adhering to the principles of ALARA. Comparison: Head CT 09/21/2023. Findings: Mild mucosal thickening within the maxillary sinuses. The mastoid air cells are clear. The calvarium and skull base are intact. There is no mass, hematoma, midline shift, acute infarct. White matter hypodensity is nonspecific but suggestive of microvascular ischemic change. The ventricles and sulci demonstrate mild age-related involutional changes. Impression: No acute intracranial abnormality. ACT 112: Negative or not required by law. Electronically signed by: Abdoul Gonzalez M.D. 07/05/2024 8:[address] 07/05/24 07:08 CT chest diagnostic wo con, CT abd pelvis wo con, CT thoracic spine wo con, CT lumbar spine wo con CT DOSE: 2231.45 mGy.cm HISTORY: trauma TECHNIQUE: Multiaxial CT images of the chest, abdomen, and pelvis were performed without contrast. Multiaxial CT images of the thoracic and lumbar spine were performed without contrast and reformatted in the sagittal and coronal planes. A dose lowering technique was utilized adhering to the principles of ALARA. COMPARISON: Abdomen and pelvis CT 06/13/2024. FINDINGS: Chest CT: No acute fractures within the chest. The central airways are patent. No pneumothorax. There is a punctate calcified granuloma within the left upper lobe. No focal lung consolidations to suggest a pneumonia. No evidence for pulmonary edema. Mild bilateral gynecomastia. Mild calcified plaque within the normal caliber thoracic aorta. There are severe coronary artery calcifications noted. There is a trace pericardial effusion. No pleural effusions. Normal esophagus. No mediastinal hematoma or lymphadenopathy. The heart is borderline enlarged. Thoracic spine CT: Mild chronic compression deformities from T11 through L2, unchanged. No acute fracture or subluxation within the thoracic spine. Paravertebral soft tissues are unremarkable. Abdomen and pelvis CT: No pneumoperitoneum. No pneumatosis. No acute fractures identified. Cirrhotic liver with a TIPS in place. This remains unchanged. The spleen remains enlarged. There is a small amount of ascites which is similar to the prior study. Cholelithiasis. No gallbladder wall thickening. There is a 3.7 cm left hepatic lobe mass on image 42. This is similar to the prior study. The additional left hepatic lobe mass appears to have decreased in size and measures 16 mm. No new hepatic masses identified. The adrenal glands are unremarkable. No hydronephrosis. No retroperitoneal hematoma or lymphadenopathy. A 1.7 cm peripherally calcified cystic lesion again noted at the pancreatic head. This remains unchanged. 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 Calcified plaque within the normal caliber abdominal aorta. Bladder wall thickening with adjacent flat stranding. A few bladder stones are noted the prostate gland remains enlarged. Multiple colonic diverticula. There is an inflamed diverticulum within the proximal sigmoid colon on image 233 consistent with an acute diverticulitis. No perforation or abscess at this time. No dilated loops of bowel to suggest an obstruction. Normal appendix. Lumbar spine CT: Mild chronic compression deformities from T11 through L2, unchanged. No acute fracture or subluxation within the lumbar spine. Paravertebral soft tissues are unremarkable. IMPRESSION: 1. No acute traumatic process within the chest, abdomen, or pelvis. 2. Chronic compression deformities again noted from T11 through L2, unchanged. No acute fractures within the thoracic or lumbar spine. 3. Cirrhotic liver with sequela of portal hypertension which is similar to the prior study. 4. There are 2 left hepatic lobe masses are again noted one of which has decreased in size in the interval. 5. Bladder wall thickening with surrounding inflammatory change. This suggests a cystitis. 6. Evidence for acute sigmoid diverticulitis. No perforation or abscess. 7. Cholelithiasis. 8. Bladder calculi again noted. 9. Additional findings as described above. ACT 112: Negative or not required by law. Electronically signed by: Abdoul Gonzalez M.D. 07/05/2024 9:[address] 07/05/24 07:08 CT chest diagnostic wo con, CT abd pelvis wo con, CT thoracic spine wo con, CT lumbar spine wo con CT DOSE: 2231.45 mGy.cm HISTORY: trauma TECHNIQUE: Multiaxial CT images of the chest, abdomen, and pelvis were performed without contrast. Multiaxial CT images of the thoracic and lumbar spine were performed without contrast and reformatted in the sagittal and coronal planes. A dose lowering technique was utilized adhering to the principles of ALARA. COMPARISON: Abdomen and pelvis CT 06/13/2024. FINDINGS: Chest CT: No acute fractures within the chest. The central airways are patent. No pneumothorax. There is a punctate calcified granuloma within the left upper lobe. No focal lung consolidations to suggest a pneumonia. No evidence for pulmonary edema. Mild bilateral gynecomastia. Mild calcified plaque within the normal caliber thoracic aorta. There are severe coronary artery calcifications noted. There is a trace pericardial effusion. No pleural effusions. Normal esophagus. No mediastinal hematoma or lymphadenopathy. The heart is borderline enlarged. Thoracic spine CT: Mild chronic compression deformities from T11 through L2, unchanged. No acute fracture or subluxation within the thoracic spine. Paravertebral soft tissues are unremarkable. Abdomen and pelvis CT: No pneumoperitoneum. No pneumatosis. No acute fractures identified. Cirrhotic liver with a TIPS in place. This remains unchanged. The spleen remains enlarged. There is a small amount of ascites which is similar to the prior study. Cholelithiasis. No gallbladder wall thickening. There is a 3.7 cm left hepatic lobe mass on image 42. This is similar to the prior study. The additional left hepatic lobe mass appears to have decreased in size and measures 16 mm. No new hepatic masses identified. The adrenal glands are unremarkable. No hydronephrosis. No retroperitoneal hematoma or lymphadenopathy. A 1.7 cm peripherally calcified cystic lesion again noted at the pancreatic head. This remains unchanged. 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 Calcified plaque within the normal caliber abdominal aorta. Bladder wall thickening with adjacent flat stranding. A few bladder stones are noted the prostate gland remains enlarged. Multiple colonic diverticula. There is an inflamed diverticulum within the proximal sigmoid colon on image 233 consistent with an acute diverticulitis. No perforation or abscess at this time. No dilated loops of bowel to suggest an obstruction. Normal appendix. Lumbar spine CT: Mild chronic compression deformities from T11 through L2, uncha nged. No acute fracture or subluxation within the lumbar spine. Paravertebral soft tissues are unremarkable. IMPRESSION: 1. No acute traumatic process within the chest, abdomen, or pelvis. 2. Chronic compression deformities again noted from T11 through L2, unchanged. No acute fractures within the thoracic or lumbar spine. 3. Cirrhotic liver with sequela of portal hypertension which is similar to the prior study. 4. There are 2 left hepatic lobe masses are again noted one of which has decreased in size in the interval. 5. Bladder wall thickening with surrounding inflammatory change. This suggests a cystitis. 6. Evidence for acute sigmoid diverticulitis. No perforation or abscess. 7. Cholelithiasis. 8. Bladder calculi again noted. 9. Additional findings as described above. ACT 112: Negative or not required by law. Electronically signed by: Abdoul Gonzalez M.D. 07/05/2024 9:39 AM Abdomen/Pelvis CT 07/05/24 07:11 CT chest diagnostic wo con, CT abd pelvis wo con, CT thoracic spine wo con, CT lumbar spine wo con CT DOSE: 2231.45 mGy.cm HISTORY: trauma TECHNIQUE: Multiaxial CT images of the chest, abdomen, and pelvis were performed without contrast. Multiaxial CT images of the thoracic and lumbar spine were performed without contrast and reformatted in the sagittal and coronal planes. A dose lowering technique was utilized adhering to the principles of ALARA. COMPARISON: Abdomen and pelvis CT 06/13/2024. FINDINGS: Chest CT: No acute fractures within the chest. The central airways are patent. No pneumothorax. There is a punctate calcified granuloma within the left upper lobe. No focal lung consolidations to suggest a pneumonia. No evidence for pulmonary edema. Mild bilateral gynecomastia. Mild calcified plaque within the normal caliber thoracic aorta. There are severe coronary artery calcifications noted. There is a trace pericardial effusion. No pleural effusions. Normal esophagus. No mediastinal hematoma or lymphadenopathy. The heart is borderline enlarged. Thoracic spine CT: Mild chronic compression deformities from T11 through L2, unchanged. No acute fracture or subluxation within the thoracic spine. Para vertebral soft tissues are unremarkable. Abdomen and pelvis CT: No pneumoperitoneum. No pneumatosis. No acute fractures identified. Cirrhotic liver with a TIPS in place. This remains unchanged. The spleen remains enlarged. There is a small amount of ascites which is similar to the prior study. Cholelithiasis. No gallbladder wall thickening. There is a 3.7 cm left hepatic lobe mass on image 42. This is similar to the prior study. The additional left hepatic lobe mass appears to have decreased in size and measures 16 mm. No new hepatic masses identified. The adrenal glands are unremarkable. No hydronephrosis. No retroperitoneal hematoma or lymphadenopathy. A 1.7 cm peripherally calcified cystic lesion again noted at the pancreatic head. This remains unchanged. 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 Calcified plaque within the normal caliber abdominal aorta. Bladder wall thickening with adjacent flat stranding. A few bladder stones are noted the prostate gland remains enlarged. Multiple colonic diverticula. There is an inflamed diverticulum within the proximal sigmoid colon on image 233 consistent with an acute diverticulitis. No perforation or abscess at this time. No dilated loops of bowel to suggest an obstruction. Normal appendix. Lumbar spine CT: Mild chronic compression deformities from T11 through L2, unchanged. No acute fracture or subluxation within the lumbar spine. Paravertebral soft tissues are unremarkable. IMPRESSION: 1. No acute traumatic process within the chest, abdomen, or pelvis. 2. Chronic compression deformities again noted from T11 through L2, unchanged. No acute fractures within the thoracic or lumbar spine. 3. Cirrhotic liver with sequela of portal hypertension which is similar to the prior study. 4. There are 2 left hepatic lobe masses are again noted one of which has decreased in size in the interval. 5. Bladder wall thickening with surrounding inflammatory change. This suggests a cystitis. 6. Evidence for acute sigmoid diverticulitis. No perforation or abscess. 7. Cholelithiasis. 8. Bladder calculi again noted. 9. Additional findings as described above. ACT 112: Negative or not required by law. Electronically signed by: Abdoul Gonzalez M.D. 07/05/2024 9:[address] 07/05/24 07:11 CT chest diagnostic wo con, CT abd pelvis wo con, CT thoracic spine wo con, CT lumbar spine wo con CT DOSE: 2231.45 mGy.cm HISTORY: trauma TECHNIQUE: Multiaxial CT images of the chest, abdomen, and pelvis were performed without contrast. Multiaxial CT images of the thoracic and lumbar spine were performed without contrast and reformatted in the sagittal and coronal planes. A dose lowering technique was utilized adhering to the principles of ALARA. COMPARISON: Abdomen and pelvis CT 06/13/2024. FINDINGS: Chest CT: No acute fractures within the chest. The central airways are patent. No pneumothorax. There is a punctate calcified granuloma within the left upper lobe. No focal lung consolidations to suggest a pneumonia. No evidence for pulmonary edema. Mild bilateral gynecomastia. Mild calcified plaque within the normal caliber thoracic aorta. There are severe coronary artery calcifications noted. There is a trace pericardial effusion. No pleural effusions. Normal esophagus. No mediastinal hematoma or lymphadenopathy. The heart is borderline enlarged. Thoracic spine CT: Mild chronic compression deformities from T11 through L2, unchanged. No acute fracture or subluxation within the thoracic spine. Paravertebral soft tissues are unremarkable. Abdomen and pelvis CT: No pneumoperitoneum. No pneumatosis. No acute fractures identified. Cirrhotic liver with a TIPS in place. This remains unchanged. The spleen remains enlarged. There is a small amount of ascites which is similar to the prior study. Cholelithiasis. No gallbladder wall thickening. There is a 3.7 cm left hepatic lobe mass on image 42. This is similar to the prior study. The additional left hepatic lobe mass appears to have decreased in size and measures 16 mm. No new hepatic masses identified. The adrenal glands are unremarkable. No hydronephrosis. No retroperitoneal hematoma or lymphadenopathy. A 1.7 cm peripherally calcified cystic lesion again noted at the pancreatic head. This remains unchanged. 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 Calcified plaque within the normal caliber abdominal aorta. Bladder wall thickening with adjacent flat stranding. A few bladder stones are noted the prostate gland remains enlarged. Multiple colonic diverticula. There is an inflamed dive rticulum within the proximal sigmoid colon on image 233 consistent with an acute diverticulitis. No perforation or abscess at this time. No dilated loops of bowel to suggest an obstruction. Normal appendix. Lumbar spine CT: Mild chronic compression deformities from T11 through L2, unchanged. No acute fracture or subluxation within the lumbar spine. Paravertebral soft tissues are unremarkable. IMPRESSION: 1. No acute traumatic process within the chest, abdomen, or pelvis. 2. Chronic compression deformities again noted from T11 through L2, unchanged. No acute fractures within the thoracic or lumbar spine. 3. Cirrhotic liver with sequela of portal hypertension which is similar to the prior study. 4. There are 2 left hepatic lobe masses are again noted one of which has decreased in size in the interval. 5. Bladder wall thickening with surrounding inflammatory change. This suggests a cystitis. 6. Evidence for acute sigmoid diverticulitis. No perforation or abscess. 7. Cholelithiasis. 8. Bladder calculi again noted. 9. Additional findings as described above. ACT 112: Negative or not required by law. Electronically signed by: Abdoul Gonzalez M.D. 07/05/2024 9:39 AM Medications Administered Discontinued Medications Piperacillin Sod/Tazobactam Sod (Zosyn) 4.5 gm in 100 mls @ 200 mls/hr IV NOW ONE Stop: 07/05/24 10:13 Last Admin: 07/05/24 10:05 Dose: 200 mls/hr Documented By: AM Lactulose (Lactulose Syrup 30 Gm/45 Ml Udp) 30 gm PO NOW STA Stop: 07/05/24 08:04 Last Admin: 07/05/24 08:35 Dose: 30 gm Documented By: AM Ondansetron HCl (Ondansetron Inj 2 Mg/Ml 2 Ml Vial) Confirm Administered Dose 4 mg .ROUTE .STK-MED ONE Stop: 07/05/24 09:39 Last Admin: 07/05/24 10:05 Dose: Not Given Documented By: AM Ondansetron HCl (Ondansetron Inj 2 Mg/Ml 2 Ml Vial) 4 mg IV NOW STA Stop: 07/05/24 09:56 Last Admin: 07/05/24 10:05 Dose: 4 mg Documented By: AM Code Status & VTE Plan Code Status FULL CODE - Full code for now as patient does not have decision-making capacity at this time. Need to speak with patient's son, Alex, this afternoon. Supervising Physician Co-Signing Physician Notes Patient was seen and examined with Jen ARCEO at bedside. Chart reviewed. Case discussed with Jen ARCEO and agree with the documentation above. In summary, this is a 74 year old male who presented to the ED after ?fall at home. Patient is currently oriented to self only and is confused. He thinks he is at home. He does not recall anything or does not remember me from prior hospitalizations. In the ED, he was afebrile and hemodynamically stable. Trauma work up with [facility]led[facility] CT does not show any fracture but sigmoid diverticulitis but denies any pain and has no tenderness. Ammonia level significantly elevated suggesting hepatic encephalopathy. UA suggestive of UTI too. Has chronic pancytopenia at baseline. He was given lactulose and zosyn in the ED. Will admit for hepatic encephalopathy, sigmoid diverticulitis and possible UTI. Will continue zosyn, lactulose, xifaxan, gentle ivf. Son is driving here to the hospital, will talk more and clarify code status once he is here. Rest as per the note above. On exam- General: Confused, lying comfortably in bed, not in acute distress, on room air HEENT: [place], MMM Chest: Clear breath sounds bilaterally, no wheezes or crackles CVS: Regular rate and rhythm, normal heart sounds Abdomen: Soft, non tender, not distended, normal bowel sounds Neuro: Awake, alert, oriented to self, confused, answering simple questions, follows basic commands. Extremities: No edema Psych: Calm, cooperative, confused
[2024-07-05] MEDS: PIPERACILLIN/TAZOBACTAM 4.5 GM/100 ML BAG IV ONE (10:05)
[2024-07-05] MEDS: ONDANSETRON INJ 2 MG/ML 2 ML VIAL IV STA (10:05)
[2024-07-05] MEDS: ONDANSETRON INJ 2 MG/ML 2 ML VIAL ONE (10:05)
[2024-07-05] MEDS ORDERED: GLUCOSE 10 TAB/TUBE PO PRN (12:43)
[2024-07-05] MEDS ORDERED: CARBOHYDRATES FOR HYPOGLYCEMIA PO PRN (12:43)
[2024-07-05] MEDS ORDERED: GLUCOSE 40% GEL 15 GM TUBE PO PRN (12:43)
[2024-07-05] MEDS ORDERED: DEXTROSE 50% 50 ML SYRINGE IV PRN (12:43)
[2024-07-05] MEDS ORDERED: GLUCAGON FOR INJ 1 MG VIAL SQ PRN (12:43)
[2024-07-05] MEDS ORDERED: PHARMACY GLYCEMIC MGMT CONSULT PRN (12:43)
[2024-07-05] MEDS ORDERED: POLYETHYLENE (MIRALAX) 17 GM PACK PO PRN (12:43)
[2024-07-05] MEDS: SODIUM CHLORIDE 0.9% 1,000 ML IV SCH (13:00)
[2024-07-05] MEDS: LACTULOSE SYRUP 20 GM/30 ML UDC PO SCH (14:01)
[2024-07-05] MEDS: INSULIN ASPART PER UNIT CHARGE SC SCH (14:32)
[2024-07-05] MEDS: HYDROmorphone INJ 0.5 MG/0.5 ML SYR IV STA (14:51)
--- NOTE | 2024-07-05 15:20 | Pharmacy Report ---
Pharmacy Glycemic Short Note 2 - Date of Service July 05, 2024 - Glycemic Short BSG Results (Last 24 hours): 07/05/24 07/05/24 06:50 13:59 Glucose 201 H POC Glucose 169 H OUTPATIENT ANTIDIABETIC REGIMEN: * Lantus 25 units SC qPM * A1c= 8% on 05/18/24 (per H&P) ASSESSMENT: * Luis is a 74 yo T2DM admitted with hepatic encephalopathy, diverticulitis, and possible UTI. Patient was found this morning lying outside on the ground by his . Unknown if patient took insulin last evening. * During June 2024 admission, patient received 17-20 units of basal insulin per day with decent glycemic control. * Will utilize weight based Novolog dosing (weight/stress 2) and reduce basal insulin based on past admission usage + NPO status. PLAN FOR INPATIENT GLYCEMIC CONTROL: * Basal insulin * Lantus 15-20 units SQ HS (20 units for BSG > 180 mg/dL) * Bolus insulin * NovoLog per scale ACHS or Q6hrs while NPO * Goal Range: Low 110 mg/dL - High 140 mg/dL * Correction Factor: 30 mg/dL/unit * Nutritional / Prandial insulin per carb ratio of 1 unit per 10 grams CHO consumed
[2024-07-05] MEDS: PIPERACILLIN/TAZOBACTAM 4.5 GM in DEXTROSE 5% MINI-B 100 ML IV SCH (15:41)
--- NOTE | 2024-07-05 16:01 | Emergency Department Note ---
Impression & Plan Hyperammonemia, Pancytopenia, AMS (altered mental status), Diverticulitis, Fall ED Provider Note NAME: MERRITT TAPIA AGE: 74 SEX: Male INFORMANT: EMS ED PROVIDER(S): Collin Xie MD CHIEF COMPLAINT: Fall PLAN: Disposition: Admitted Outpatient prescription management: none Referral: None MEDICAL DECISION MAKING: Patient presented because of a fall. He was a trauma alert during a period of high acuity. Patient was evaluated. Trauma imaging ordered. Patient did have change in mental status as he had difficulty providing any substantive history. The patient had i-STAT performed. He was sent for trauma imaging. No acute traumatic findings were noted in the head, C-spine, chest abdomen and pelvis. He was found to have diverticulitis. Blood work revealed pancytopenia which was stable. Patient does have elevated INR. Lactate was slightly elevated but suspect this is related to his liver cirrhosis. Patient's ammonia level was markedly elevated. This likely explains his change in mental status. He was able to take oral lactulose. He was given a dose of Zofran to prevent vomiting. The patient was found to have some diverticulitis on CT imaging and therefore was treated with IV Zosyn. Patient will require further management in the hospital. Consultation was made with the [facility] service. He was evaluated in the ER and admitted for further management. Care/management discussed with: enterprise manager Level of care consideration(s): After review of the information above and other included data, I feel the patient requires escalation of care to admission Triage Nursing notes: reviewed and agree them. Vital Signs: reviewed and remarkable for hypertension Additional History obtained from: EMS Chronic Medical/Social Conditions affecting care: Cirrhosis Prior/ Outside/ External records reviewed: none Differential Diagnosis: Fracture, dislocation, contusion, intra-abdominal, pneumothorax, intrathoracic, intracranial, neurologic, compartment syndrome, rhabdomyolysis, infection, electrolyte abnormality, metabolic process, as well as other pathologies. Diagnostics, independently interpreted by me: ECG: Twelve-lead ECG was sinus rhythm at 60 bpm and PVCs and prolonged QT. Cardiac Monitoring: Cardiac monitoring ordered by me: The patient was placed on continuous cardiac monitoring and observed. It revealed a sinus rhythm at 65 bpm without ectopy or evidence of dysrhythmia. Medical decision rules: none Imaging studies: Head CT: A noncontrast CT scan of the head was performed and was negative for tumor, fracture, intracranial hemorrhage, or other acute pathology. I refer you to the EMR for further details. HPI: 74 year old Male arrives for evaluation of fall, possible trauma. Patient was brought in after suspected fall as he was found outside. He seemed confused and he did have dirt on his legs. Unsure if he fell down steps or just fell from a standing position. Patient denies any pain. EMS noted the patient was confused. Patient was placed in a cervical collar and brought in for further evaluation. Patient was made a trauma alert. History is limited secondary to the patient's change in mental status and confusion. PAST MEDICAL HISTORY: See Below, cirrhosis PAST SURGICAL HISTORY: See Below, SOCIAL HISTORY: See Below, HOME MEDICATIONS: See Below ALLERGIES: See Below VITALS: See Below PHYSICAL EXAMINATION: GENERAL: Awake, alert, confused-appearing, in no distress HENT: Normocephalic, atraumatic. Oropharynx unremarkable. EYES: Normal conjunctiva. Sclera non-icteric. NECK: Inspection normal. Non-tender. Cervical collar in place. No masses. RESPIRATORY: Clear to auscultation. No wheezes. No rales. Normal respiratory effort. CARDIAC: Normal rate. Normal rhythm. No murmurs. No rubs. Extremities warm and well perfused. Pulses equal. No JVD. GI: Soft, non-distended. No tenderness to palpation. No rebound or guarding. No masses. RECTAL: Deferred. MUSCULOSKELETAL: Atraumatic except for few scattered abrasions. No bony deformity. No bony tenderness.. Chest examination reveals no tenderness. The back is symmetrical on inspection without obvious abnormality. There is no CVA tenderness to palpation. No joint edema. LOWER EXTREMITIES: Calves are equal size bilaterally and non-tender. No edema. No discoloration. NEURO: Altered sensorium. No focal sensory or motor deficits noted. Answering yes and no questions only. SKIN: No rash or jaundice noted. PROCEDURES: none CRITICAL CARE: I have personally spent 30 minutes of critical care time in the direct management of this patient. This includes bedside care, interpretation of diagnostic studies, and testing, discussion with consultants, patient, and other required patient management activities. This 30 minutes is in excess of all separately billable procedures. OBSERVATION NOTE: none Past Med/Surg History Problem List (Updated 07/05/24 @ 16:00 by Collin Xie MD) Fall (Acute) Diverticulitis (Acute) AMS (altered mental status) (Acute) Pancytopenia (Acute) Hyperammonemia (Acute) Hepatic encephalopathy Sigmoid diverticulitis Acute urinary tract infection Encephalopathy Elevated lactic acid level Epigastric abdominal pain Hypomagnesemia (Acute) Elevated liver enzymes (Acute) Acute hyperglycemia (Acute) Anemia (Acute) Precordial chest pain (Acute) Increased anion gap metabolic acidosis Abdominal pain, generalized Advanced care planning/counseling discussion Palliative care by specialist Acute on chronic blood loss anemia Elevated brain natriuretic peptide (BNP) level (Acute) Pancytopenia (Acute) Abdominal ascites (Acute) Abdominal pain (Acute) Hypocalcemia (Acute) Hyperglycemia (Acute) Elevated brain natriuretic peptide (BNP) level (Acute) Acute kidney injury superimposed on chronic kidney disease (Acute) Thrombocytopenia (Acute) Anemia requiring transfusions (Acute) Pancytopenia (Acute) Chest pain (Acute) LUCRETIA (acute kidney injury) Hematuria (Acute) Anemia (Acute) Acute urinary retention (Acute) DM type 2 (diabetes mellitus, type 2) Irradiation cystitis with hematuria UTI (urinary tract infection) (Acute) Anemia (Acute) 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 (Acute) Closed T12 spinal fracture (Acute) Prostate cancer (Acute) Hx radiation Insulin dependent type 2 diabetes mellitus Medical History (Updated 07/05/24 @ 16:00 by Collin Xie MD) CKD (chronic kidney disease) stage 3, GFR 30-59 ml/min Thrombocytopenia DM type 2 (diabetes mellitus, type 2) Hx of malignant neoplasm of prostate History of blood transfusion 11/2022 Hepatocellular carcinoma Spinal fracture of T12 vertebra History of recent hospitalization 06/2023 [facility] hepatic encephalopathy Liver spots Under surveillance, stable per patient Anxiety and depression 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 Anemia of chronic disease under surveillance History of panic attacks Gout No current issues GERD (gastroesophageal reflux disease) GAVE (gastric antral vascular ectasia) Hypertension Hx Esophageal varices EGD 05/22/23 ([facility]): Grade 1 varices in distal esophagus without high risk stigmata Upper GI bleed Hx Psoriasis Surgical History History of left cataract surgery History of right cataract surgery History of prostate biopsy malignant S/P TIPS (transjugular intrahepatic portosystemic shunt) History of esophagogastroduodenoscopy (EGD) Most recent 05/2023 [facility] History of colonoscopy with polypectomy History of tonsillectomy and adenoidectomy History of abdominal paracentesis Multiple, most recent 01/2023 Family History Father , "3/4 liver gone due to drinking" Colorectal cancer, Onset Age: 63 Mother Lung cancer Daughter Cancer cervical and thyroid cancers Ovarian cancer Other No family history of adverse response to anesthesia 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 Smoking Status: Unknown if ever smoked Second Hand Exposure: No; Hx Alcohol Use: No Hx Substance Use: No Preferred Language: Gabonese Communication Ability: Impaired Communication Ability Comment: AMS, not answering questions appropriately Visual Impairment: No Limitations Hearing Ability: Normal Blade Filer Required: No Beliefs That Will Affect Care: None marital status: Current Living Situation: Spouse Current Living Situation Comment: 1 level single family home 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 How many Children do You have: 6 How many Children do You have Comment: one , eldest daughter in her sleep from seizure disorder Feels Safe at Home: Yes Childhood Exposure to Second-Hand Smoke: Yes Diet Comment: "I watch my sugar, average fasting is 140 mg/dl" caffeine: Yes (cola, sugar free, decaf) during the past year weight has: remained stable Dental Care, Regularly: No Physical Activity Frequency: Does not Exercise Seatbelt Use: always Sunscreen Use: Yes Assistive Devices: Glasses, Oxygen - at Night and Walker Allergies Allergies Allergy/AdvReac Type Severity Reaction Status Date / Time No Known Allergies Allergy Mild Verified 06/29/24 08:29 Home Meds Home Medications Medication Instructions Recorded Confirmed allopurinol 100 mg tablet 200 mg PO QAM 05/16/20 07/05/24 Lactobacil.acidophilus-Bifido.animalis 1 cap PO QAM 05/17/23 07/05/24 5 billion cell sprinkle capsule (Probiotic) ferrous sulfate 325 mg (65 mg 650 mg PO QAM 05/17/23 07/05/24 iron) tablet (iron) qxiqvfeyvube-tmj-awwcv acid-vit 1 tab PO DAILY 05/17/23 07/05/24 K-lycop 400 mcg-20 mcg-370 mcg tablet (Men's 50 Plus Multivitamin) duloxetine 30 mg capsule,delayed 30 mg PO QAM 02/02/24 07/05/24 release pantoprazole 40 mg tablet,delayed 40 mg PO AMPM 02/02/24 07/05/24 release rifaximin 550 mg tablet (Xifaxan) 550 mg PO AMHS 02/02/24 07/05/24 finasteride 5 mg tablet 5 mg PO QAM 03/20/24 07/05/24 lactulose 10 gram oral packet 10 g PO BID PRN . 03/20/24 07/05/24 (Kristalose) mirtazapine 30 mg tablet 30 mg PO HS 03/20/24 07/05/24 acetylcysteine 600 mg capsule 600 mg PO DAILY 05/03/24 07/05/24 cholestyramine (with sugar) 4 gram 1 ea PO BID 05/20/24 07/05/24 powder for susp in a packet insulin glargine 100 unit/mL (3 25 unit subcut QPM 05/20/24 07/05/24 mL) subcutaneous pen (Lantus Solostar U-100 Insulin) magnesium chloride 64 mg 64 mg PO DAILY 05/20/24 07/05/24 (magnesium chloride) tablet,delayed release (Mag 64) oxybutynin chloride 5 mg tablet 5 mg PO TID PRN Bladder Spasms 05/20/24 07/05/24 solifenacin 5 mg tablet 5 mg PO DAILY 05/20/24 07/05/24 triamcinolone acetonide 0.1 % 1 applic topical DAILY 05/20/24 07/05/24 topical cream zinc gluconate 50 mg tablet 50 mg PO DAILY ##0 05/20/24 07/05/24 Previous Rx's Medication Instructions Recorded furosemide 40 mg tablet 40 mg PO QAM #30 tabs 05/30/24 spironolactone 100 mg tablet 100 mg PO QAM #30 tabs 05/30/24 Results & Data (ED) Vital Signs Vital Signs - 24 hr 07/05/24 06:55 07/05/24 06:55 07/05/24 07:03 Temperature 36.7 C 36.7 C Temperature Source Rectal Pulse Rate 61 61 62 Pulse Rate [Finger] Pulse Rate from SpO2 Sensor 61 Respiratory Rate 17 17 14 Respiratory Effort / Characteristics Respiratory Depth Blood Pressure 154/72 H 154/72 H Blood Pressure [Right Arm] Blood Pressure Mean 99 Blood Pressure Mean [Right Arm] Pulse Oximetry 99 99 99 Oxygen Delivery Method Room Air Room Air Sepsis New/Unexplained Change in Mental Status Yes Sepsis Action Taken by Nursing No Action Required 07/05/24 07:06 07/05/24 07:15 07/05/24 07:30 Temperature Temperature Source Pulse Rate 63 Pulse Rate [Finger] Pulse Rate from SpO2 Sensor 63 Respiratory Rate 15 Respiratory Effort / Characteristics Respiratory Depth Blood Pressure Blood Pressure [Right Arm] Blood Pressure Mean Blood Pressure Mean [Right Arm] Pulse Oximetry 99 100 100 Oxygen Delivery Method Room Air Room Air Sepsis New/Unexplained Change in Mental Status Sepsis Action Taken by Nursing 07/05/24 08:00 07/05/24 08:09 07/05/24 08:15 Temperature Temperature Source Pulse Rate Pulse Rate [Finger] 71 Pulse Rate from SpO2 Sensor 63 82 Respiratory Rate 16 Respiratory Effort / Characteristics Respiratory Depth Blood Pressure Blood Pressure [Right Arm] 161/53 H Blood Pressure Mean Blood Pressure Mean [Right Arm] 89 Pulse Oximetry 98 99 100 Oxygen Delivery Method Room Air Sepsis New/Unexplained Change in Mental Status Sepsis Action Taken by Nursing 07/05/24 08:18 07/05/24 08:18 07/05/24 08:30 Temperature Temperature Source Pulse Rate 74 Pulse Rate [Finger] Pulse Rate from SpO2 Sensor Respiratory Rate Respiratory Effort / Characteristics Respiratory Depth Blood Pressure 161/53 H 161/53 H Blood Pressure [Right Arm] Blood Pressure Mean 115 115 Blood Pressure Mean [Right Arm] Pulse Oximetry Oxygen Delivery Method Sepsis New/Unexplained Change in Mental Status Sepsis Action Taken by Nursing 07/05/24 08:31 07/05/24 09:00 07/05/24 09:00 Temperature Temperature Source Pulse Rate Pulse Rate [Finger] 74 Pulse Rate from SpO2 Sensor Respiratory Rate 20 Respiratory Effort / Characteristics Non-Labored Respiratory Depth Normal Blood Pressure 151/85 H 169/83 H Blood Pressure [Right Arm] 169/83 H Blood Pressure Mean 118 117 Blood Pressure Mean [Right Arm] 111 Pulse Oximetry 100 Oxygen Delivery Method Room Air Sepsis New/Unexplained Change in Mental Status Sepsis Action Taken by Nursing 07/05/24 09:00 07/05/24 09:03 07/05/24 09:15 Temperature Temperature Source Pulse Rate 74 90 Pulse Rate [Finger] Pulse Rate from SpO2 Sensor 74 88 Respiratory Rate 19 16 Respiratory Effort / Characteristics Respiratory Depth Blood Pressure 169/83 H Blood Pressure [Right Arm] Blood Pressure Mean 117 Blood Pressure Mean [Right Arm] Pulse Oximetry 95 100 Oxygen Delivery Method Sepsis New/Unexplained Change in Mental Status Sepsis Action Taken by Nursing 07/05/24 09:18 07/05/24 09:30 07/05/24 09:30 Temperature Temperature Source Pulse Rate 71 Pulse Rate [Finger] Pulse Rate from SpO2 Sensor 73 Respiratory Rate Respiratory Effort / Characteristics Respiratory Depth Blood Pressure 143/91 H 143/91 H Blood Pressure [Right Arm] Blood Pressure Mean 99 99 Blood Pressure Mean [Right Arm] Pulse Oximetry 100 Oxygen Delivery Method Sepsis New/Unexplained Change in Mental Status Sepsis Action Taken by Nursing 07/05/24 09:33 07/05/24 10:00 07/05/24 10:06 Temperature 36.1 C L Temperature Source Rectal Pulse Rate 85 Pulse Rate [Finger] 65 Pulse Rate from SpO2 Sensor 72 Respiratory Rate 16 Respiratory Effort / Characteristics Respiratory Depth Normal Blood Pressure 168/87 H Blood Pressure [Right Arm] 168/87 H Blood Pressure Mean 107 Blood Pressure Mean [Right Arm] 114 Pulse Oximetry 99 97 Oxygen Delivery Method Room Air Sepsis New/Unexplained Change in Mental Status Sepsis Action Taken by Nursing 07/05/24 10:06 07/05/24 10:09 07/05/24 10:12 Temperature 36.1 C L Temperature Source Pulse Rate 70 70 Pulse Rate [Finger] Pulse Rate from SpO2 Sensor 70 70 Respiratory Rate 18 25 H Respiratory Effort / Characteristics Respiratory Depth Blood Pressure 168/87 H Blood Pressure [Right Arm] Blood Pressure Mean 107 Blood Pressure Mean [Right Arm] Pulse Oximetry 95 98 Oxygen Delivery Method Sepsis New/Unexplained Change in Mental Status Sepsis Action Taken by Nursing 07/05/24 10:36 07/05/24 10:42 07/05/24 11:00 Temperature Temperature Source Pulse Rate 66 70 Pulse Rate [Finger] 86 Pulse Rate from SpO2 Sensor 66 Respiratory Rate 15 19 18 Respiratory Effort / Characteristics Respiratory Depth Blood Pressure Blood Pressure [Right Arm] Blood Pressure Mean Blood Pressure Mean [Right Arm] Pulse Oximetry 98 99 Oxygen Delivery Method Room Air Sepsis New/Unexplained Change in Mental Status Sepsis Action Taken by Nursing Laboratory Data 07/05/24 06:50 07/05/24 06:50 Lab Results 07/05/24 07/05/24 Range/Units 06:50 07:23 WBC 2.85 L (4.8-10.8) K/ul RBC 2.67 L (4.70-6.10) M/uL Hgb 8.2 L (14.0-18.0) g/dl Hct 24.3 L (42.0-52.0) % MCV 91.0 (80.0-100.0) fL MCH 30.7 (25.0-34.0) pg MCHC 33.7 (32.0-36.0) g/dL RDW Std Deviation 62.6 H (36.4-46.3) fL RDW Coeff of Violetta 18.8 H (11.5-14.5) % Plt Count 56 L (130-400) K/uL MPV 11.4 (9.4-12.4) fL Immature Gran % (Auto) 0.4 % Neut % (Auto) 67.9 % Lymph % (Auto) 18.6 % [place] % (Auto) 5.3 % Eos % (Auto) 7.4 % Baso % (Auto) 0.4 % Neut # (Auto) 1.94 (1.40-6.50) K/uL Lymph # (Auto) 0.53 L (1.20-3.40) K/uL [place] # (Auto) 0.15 (0.11-0.59) K/uL Eos # (Auto) 0.21 (0.00-0.50) K/uL Baso # (Auto) 0.01 (0.00-0.20) K/uL Immature Gran # (Auto) 0.01 (0.01-0.20) K/uL PT 13.1 H (9.0-12.0) Seconds INR 1.2 H (0.9-1.1) Sodium 141 (136-145) mmol/L Potassium 4.1 (3.5-5.1) mmol/L Chloride 113 H (98-107) mmol/L Carbon Dioxide 20 L (21-32) mmol/L Anion Gap 8 (3-11) BUN 29 H (6-23) mg/dl Creatinine 1.17 (0.6-1.4) mg/dl Est Cr Clr Drug Dosing 59.0 ml/min Est GFR ( Amer) 70.8 ml/min Est GFR (Non-Af Amer) 61.1 ml/min BUN/Creatinine Ratio 24.8 H (10-20) Glucose 201 H (70-99(Fasting)) mg/dl Lactate 2.4 H* (0.4-2.0) mmol/L Calcium 8.5 L (8.6-10.3) mg/dl Total Bilirubin 4.0 H (0.2-1.0) mg/dl AST 34 (13-39) U/L ALT 17 (7-52) U/L Alkaline Phosphatase 170 H (34-104) U/L Ammonia 167.0 H (18-72) umol/L Total Creatine Kinase 26 L (30-223) U/L Troponin I High Sens 9.5 (0-20) pg/ml Total Protein 6.3 (6.0-8.3) gm/dl Albumin 3.1 L (3.4-5.0) gm/dl Globulin 3.2 (2.5-4.0) gm/dl Albumin/Globulin Ratio 1.0 (0.9-2) Administered Medications Sodium Chloride (Nss) 1,000 mls @ 80 mls/hr IV .[id number] JODI Stop: 07/06/24 01:12 Last Admin: 07/05/24 13:00 Dose: 80 mls/hr Documented By: TORRES Piperacillin Sod/Tazobactam (Sod 4.5 gm/ Dextrose) 100 mls @ 25 mls/hr IV Q8H [facility]; Protocol Stop: 07/15/24 14:59 Last Admin: 07/05/24 15:41 Dose: 25 mls/hr Documented By: MTCameron Insulin Aspart (Insulin Aspart Per Unit Charge) 0 units SC Q6 JODI Stop: 08/04/24 13:44 Last Admin: 07/05/24 14:32 Dose: Not Given Documented By: TORRES Lactulose (Lactulose Syrup 20 Gm/30 Ml Udc) 20 gm PO QID JODI Stop: 08/04/24 12:59 Last Admin: 07/05/24 14:01 Dose: 20 gm Documented By: TORRES Discontinued Medications Hydromorphone HCl (Hydromorphone Inj 0.5 Mg/0.5 Ml Syr) 0.25 mg IV NOW STA Stop: 07/05/24 14:15 Last Admin: 07/05/24 14:51 Dose: 0.25 mg Documented By: MTCameron Piperacillin Sod/Tazobactam Sod (Zosyn) 4.5 gm in 100 mls @ 200 mls/hr IV NOW ONE Stop: 07/05/24 10:13 Last Infusion: 07/05/24 10:52 Dose: Infused Documented By: Admin: 07/05/24 10:05 Dose: 200 mls/hr Documented By: AM Lactulose (Lactulose Syrup 30 Gm/45 Ml Udp) 30 gm PO NOW STA Stop: 07/05/24 08:04 Last Admin: 07/05/24 08:35 Dose: 30 gm Documented By: AM Ondansetron HCl (Ondansetron Inj 2 Mg/Ml 2 Ml Vial) Confirm Administered Dose 4 mg .ROUTE .STK-MED ONE Stop: 07/05/24 09:39 Last Admin: 07/05/24 10:05 Dose: Not Given Documented By: AM Ondansetron HCl (Ondansetron Inj 2 Mg/Ml 2 Ml Vial) 4 mg IV NOW STA Stop: 07/05/24 09:56 Last Admin: 07/05/24 10:05 Dose: 4 mg Documented By: AM Imaging Data Radiologist's Impression: Cervical Spine CT 07/05/24 07:[address] DOSE: 1495.96 mGy.cm HISTORY: Trauma TECHNIQUE: Multiaxial CT images of the cervical spine were performed and reformatted in the sagittal and coronal plane without the use of contrast. A dose lowering technique was utilized adhering to the principles of ALARA. COMPARISON: Cervical spine CT 06/14/2023. FINDINGS: No fractures. No subluxation. Prevertebral soft tissues and the C1-C2 interval are intact. No pneumothorax. IMPRESSION: No fractures within the cervical spine. ACT 112: Negative or not required by law. Electronically signed by: Abdoul Gonzalez M.D. 07/05/2024 8:[address] 07/05/24 07:[address] DOSE: HISTORY: Trauma TECHNIQUE: Multiaxial CT images of the maxillofacial region were performed and reformatted in the coronal plane without the use of contrast. A dose lowering technique was utilized adhering to the principles of ALARA. COMPARISON: None. FINDINGS: The visualized cervical spine, skull base, pterygoid plates, nasal bones, lamina papyracea, orbital floors, mandible, and zygomatic arches are intact. No fractures. The orbits are unremarkable. A periapical lucency at ADA 14. Multiple dental caries are noted IMPRESSION: No fractures within the maxillofacial region. Periodontal disease as described above. ACT 112: Negative or not required by law. Electronically signed by: Abdoul Gonzalez M.D. 07/05/2024 8:[address] 07/05/24 07:[address] DOSE: HISTORY: Trauma TECHNIQUE: Multiaxial CT images of the head were performed without the use of intravenous contrast. Automated exposure control was utilized for this study. A dose lowering technique was utilized adhering to the principles of ALARA. Comparison: Head CT 09/21/2023. Findings: Mild mucosal thickening within the maxillary sinuses. The mastoid air cells are clear. The calvarium and skull base are intact. There is no mass, hematoma, midline shift, acute infarct. White matter hypodensity is nonspecific but suggestive of microvascular ischemic change. The ventricles and sulci demonstrate mild age-related involutional changes. Impression: No acute intracranial abnormality. ACT 112: Negative or not required by law. Electronically signed by: Abdoul Gonzalez M.D. 07/05/2024 8:[address] 07/05/24 07:08 CT chest diagnostic wo con, CT abd pelvis wo con, CT thoracic spine wo con, CT lumbar spine wo con CT DOSE: 2231.45 mGy.cm HISTORY: trauma TECHNIQUE: Multiaxial CT images of the chest, abdomen, and pelvis were performed without contrast. Multiaxial CT images of the thoracic and lumbar spine were performed without contrast and reformatted in the sagittal and coronal planes. A dose lowering technique was utilized adhering to the principles of ALARA. COMPARISON: Abdomen and pelvis CT 06/13/2024. FINDINGS: Chest CT: No acute fractures within the chest. The central airways are patent. No pneumothorax. There is a punctate calcified granuloma within the left upper lobe. No focal lung consolidations to suggest a pneumonia. No evidence for pulmonary edema. Mild bilateral gynecomastia. Mild calcified plaque within the normal caliber thoracic aorta. There are severe coronary artery calcifications noted. There is a trace pericardial effusion. No pleural effusions. Normal esophagus. No mediastinal hematoma or lymphadenopathy. The heart is borderline enlarged. Thoracic spine CT: Mild chronic compression deformities from T11 through L2, unchanged. No acute fracture or subluxation within the thoracic spine. Paravertebral soft tissues are unremarkable. Abdomen and pelvis CT: No pneumoperitoneum. No pneumatosis. No acute fractures identified. Cirrhotic liver with a TIPS in place. This remains unchanged. The spleen remains enlarged. There is a small amount of ascites which is similar to the prior study. Cholelithiasis. No gallbladder wall thickening. There is a 3.7 cm left hepatic lobe mass on image 42. This is similar to the prior study. The additional left hepatic lobe mass appears to have decreased in size and measures 16 mm. No new hepatic masses identified. The adrenal glands are unremarkable. No hydronephrosis. No retroperitoneal hematoma or lymphadenopathy. A 1.7 cm peripherally calcified cystic lesion again noted at the pancreatic head. This remains unchanged. 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 Calcified plaque within the normal caliber abdominal aorta. Bladder wall thickening with adjacent flat stranding. A few bladder stones are noted the prostate gland remains enlarged. Multiple colonic diverticula. There is an inflamed diverticulum within the proximal sigmoid colon on image 233 consistent with an acute diverticulitis. No perforation or abscess at this time. No dilated loops of bowel to suggest an obstruction. Normal appendix. Lumbar spine CT: Mild chronic compression deformities from T11 through L2, unchanged. No acute fracture or subluxation within the lumbar spine. Paravertebral soft tissues are unremarkable. IMPRESSION: 1. No acute traumatic process within the chest, abdomen, or pelvis. 2. Chronic compression deformities again noted from T11 through L2, unchanged. No acute fractures within the thoracic or lumbar spine. 3. Cirrhotic liver with sequela of portal hypertension which is similar to the prior study. 4. There are 2 left hepatic lobe masses are again noted one of which has decreased in size in the interval. 5. Bladder wall thickening with surrounding inflammatory change. This suggests a cystitis. 6. Evidence for acute sigmoid diverticulitis. No perforation or abscess. 7. Cholelithiasis. 8. Bladder calculi again noted. 9. Additional findings as described above. ACT 112: Negative or not required by law. Electronically signed by: Abdoul Gonzalez M.D. 07/05/2024 9:[address] 07/05/24 07:08 CT chest diagnostic wo con, CT abd pelvis wo con, CT thoracic spine wo con, CT lumbar spine wo con CT DOSE: 2231.45 mGy.cm HISTORY: trauma TECHNIQUE: Multiaxial CT images of the chest, abdomen, and pelvis were performed without contrast. Multiaxial CT images of the thoracic and lumbar spine were performed without contrast and reformatted in the sagittal and coronal planes. A dose lowering technique was utilized adhering to the principles of ALARA. COMPARISON: Abdomen and pelvis CT 06/13/2024. FINDINGS: Chest CT: No acute fractures within the chest. The central airways are patent. No pneumothorax. There is a punctate calcified granuloma within the left upper lobe. No focal lung consolidations to suggest a pneumonia. No evidence for pulmonary edema. Mild bilateral gynecomastia. Mild calcified plaque within the normal caliber thoracic aorta. There are severe coronary artery calcifications noted. There is a trace pericardial effusion. No pleural effusions. Normal esophagus. No mediastinal hematoma or lymphadenopathy. The heart is borderline enlarged. Thoracic spine CT: Mild chronic compression deformities from T11 through L2, unchanged. No acute fracture or subluxation within the thoracic spine. Paravertebral soft tissues are unremarkable. Abdomen and pelvis CT: No pneumoperitoneum. No pneumatosis. No acute fractures identified. Cirrhotic liver with a TIPS in place. This remains unchanged. The spleen remains enlarged. There is a small amount of ascites which is similar to the prior study. Cholelithiasis. No gallbladder wall thickening. There is a 3.7 cm left hepatic lobe mass on image 42. This is similar to the prior study. The additional left hepatic lobe mass appears to have decreased in size and measures 16 mm. No new hepatic masses identified. The adrenal glands are unremarkable. No hydronephrosis. No retroperitoneal hematoma or lymphadenopathy. A 1.7 cm peripherally calcified cystic lesion again noted at the pancreatic head. This remains unchanged. 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 Calcified plaque within the normal caliber abdominal aorta. Bladder wall thickening with adjacent flat stranding. A few bladder stones are noted the prostate gland remains enlarged. Multiple colonic diverticula. There is an inflamed diverticulum within the proximal sigmoid colon on image 233 consistent with an acute diverticulitis. No perforation or abscess at this time. No dilated loops of bowel to suggest an obstruction. Normal appendix. Lumbar spine CT: Mild chronic compression deformities from T11 through L2, unchanged. No acute fracture or subluxation within the lumbar spine. Paravertebral soft tissues are unremarkable. IMPRESSION: 1. No acute traumatic process within the chest, abdomen, or pelvis. 2. Chronic compression deformities again noted from T11 through L2, unchanged. No acute fractures within the thoracic or lumbar spine. 3. Cirrhotic liver with sequela of portal hypertension which is similar to the prior study. 4. There are 2 left hepatic lobe masses are again noted one of which has decreased in size in the interval. 5. Bladder wall thickening with surrounding inflammatory change. This suggests a cystitis. 6. Evidence for acute sigmoid diverticulitis. No perforation or abscess. 7. Cholelithiasis. 8. Bladder calculi again noted. 9. Additional findings as described above. ACT 112: Negative or not required by law. Electronically signed by: Abdoul Gonzalez M.D. 07/05/2024 9:39 AM Abdomen/Pelvis CT 07/05/24 07:11 CT chest diagnostic wo con, CT abd pelvis wo con, CT thoracic spine wo con, CT lumbar spine wo con CT DOSE: 2231.45 mGy.cm HISTORY: trauma TECHNIQUE: Multiaxial CT images of the chest, abdomen, and pelvis were performed without contrast. Multiaxial CT images of the thoracic and lumbar spine were performed without contrast and reformatted in the sagittal and coronal planes. A dose lowering technique was utilized adhering to the principles of ALARA. COMPARISON: Abdomen and pelvis CT 06/13/2024. FINDINGS: Chest CT: No acute fractures within the chest. The central airways are patent. No pneumothorax. There is a punctate calcified granuloma within the left upper lobe. No focal lung consolidations to suggest a pneumonia. No evidence for pulmonary edema. Mild bilateral gynecomastia. Mild calcified plaque within the normal caliber thoracic aorta. There are severe coronary artery calcifications noted. There is a trace pericardial effusion. No pleural effusions. Normal esophagus. No mediastinal hematoma or lymphadenopathy. The heart is borderline enlarged. Thoracic spine CT: Mild chronic compression deformities from T11 through L2, unchanged. No acute fracture or subluxation within the thoracic spine. Paravertebral soft tissues are unremarkable. Abdomen and pelvis CT: No pneumoperitoneum. No pneumatosis. No acute fractures identified. Cirrhotic liver with a TIPS in place. This remains unchanged. The spleen remains enlarged. There is a small amount of ascites which is similar to the prior study. Cholelithiasis. No gallbladder wall thickening. There is a 3.7 cm left hepatic lobe mass on image 42. This is similar to the prior study. The additional left hepatic lobe mass appears to have decreased in size and measures 16 mm. No new hepatic masses identified. The adrenal glands are unremarkable. No hydronephrosis. No retroperitoneal hematoma or lymphadenopathy. A 1.7 cm peripherally calcified cystic lesion again noted at the pancreatic head. This remains unchanged. 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 Calcified plaque within the normal caliber abdominal aorta. Bladder wall thickening with adjacent flat stranding. A few bladder stones are noted the prostate gland remains enlarged. Multiple colonic diverticula. There is an inflamed diverticulum within the proximal sigmoid colon on image 233 consistent with an acute diverticulitis. No perforation or abscess at this time. No dilated loops of bowel to suggest an obstruction. Normal appendix. Lumbar spine CT: Mild chronic compression deformities from T11 through L2, unchanged. No acute fracture or subluxation within the lumbar spine. Paravertebral soft tissues are unremarkable. IMPRESSION: 1. No acute traumatic process within the chest, abdomen, or pelvis. 2. Chronic compression deformities again noted from T11 through L2, unchanged. No acute fractures within the thoracic or lumbar spine. 3. Cirrhotic liver with sequela of portal hypertension which is similar to the prior study. 4. There are 2 left hepatic lobe masses are again noted one of which has decreased in size in the interval. 5. Bladder wall thickening with surrounding inflammatory change. This suggests a cystitis. 6. Evidence for acute sigmoid diverticulitis. No perforation or abscess. 7. Cholelithiasis. 8. Bladder calculi again noted. 9. Additional findings as described above. ACT 112: Negative or not required by law. Electronically signed by: Abdoul Gonzalez M.D. 07/05/2024 9:[address] 07/05/24 07:11 CT chest diagnostic wo con, CT abd pelvis wo con, CT thoracic spine wo con, CT lumbar spine wo con CT DOSE: 2231.45 mGy.cm HISTORY: trauma TECHNIQUE: Multiaxial CT images of the chest, abdomen, and pelvis were performed without contrast. Multiaxial CT images of the thoracic and lumbar spine were performed without contrast and reformatted in the sagittal and coronal planes. A dose lowering technique was utilized adhering to the principles of ALARA. COMPARISON: Abdomen and pelvis CT 06/13/2024. FINDINGS: Chest CT: No acute fractures within the chest. The central airways are patent. No pneumothorax. There is a punctate calcified granuloma within the left upper lobe. No focal lung consolidations to suggest a pneumonia. No evidence for pulmonary edema. Mild bilateral gynecomastia. Mild calcified plaque within the normal caliber thoracic aorta. There are severe coronary artery calcifications noted. There is a trace pericardial effusion. No pleural effusions. Normal esophagus. No mediastinal hematoma or lymphadenopathy. The heart is borderline enlarged. Thoracic spine CT: Mild chronic compression deformities from T11 through L2, unchanged. No acute fracture or subluxation within the thoracic spine. Paravertebral soft tissues are unremarkable. Abdomen and pelvis CT: No pneumoperitoneum. No pneumatosis. No acute fractures identified. Cirrhotic liver with a TIPS in place. This remains unchanged. The spleen remains enlarged. There is a small amount of ascites which is similar to the prior study. Cholelithiasis. No gallbladder wall thickening. There is a 3.7 cm left hepatic lobe mass on image 42. This is similar to the prior study. The additional left hepatic lobe mass appears to have decreased in size and measures 16 mm. No new hepatic masses identified. The adrenal glands are unremarkable. No hydronephrosis. No retroperitoneal hematoma or lymphadenopathy. A 1.7 cm peripherally calcified cystic lesion again noted at the pancreatic head. This remains unchanged. 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 Calcified plaque within the normal caliber abdominal aorta. Bladder wall thickening with adjacent flat stranding. A few bladder stones are noted the prostate gland remains enlarged. Multiple colonic diverticula. There is an inflamed diverticulum within the proximal sigmoid colon on image 233 consistent with an acute diverticulitis. No perforation or abscess at this time. No dilated loops of bowel to suggest an obstruction. Normal appendix. Lumbar spine CT: Mild chronic compression deformities from T11 through L2, unchanged. No acute fracture or subluxation within the lumbar spine. Paravertebral soft tissues are unremarkable. IMPRESSION: 1. No acute traumatic process within the chest, abdomen, or pelvis. 2. Chronic compression deformities again noted from T11 through L2, unchanged. No acute fractures within the thoracic or lumbar spine. 3. Cirrhotic liver with sequela of portal hypertension which is similar to the prior study. 4. There are 2 left hepatic lobe masses are again noted one of which has decreased in size in the interval. 5. Bladder wall thickening with surrounding inflammatory change. This suggests a cystitis. 6. Evidence for acute sigmoid diverticulitis. No perforation or abscess. 7. Cholelithiasis. 8. Bladder calculi again noted. 9. Additional findings as described above. ACT 112: Negative or not required by law. Electronically signed by: Abdoul Gonzalez M.D. 07/05/2024 9:39 AM Discharge Plan Visit Data Chief Complaint: Trauma Stated Complaint: [facility] ED Provider: Collin Xie Discharge Problem: Hyperammonemia, Pancytopenia, AMS (altered mental status), Diverticulitis, Fall Patient Disposition: Admitted As Inpatient Discharge Instructions Interventions: ED Discharge Assessment Last Done: 07/05/24 12:43
[2024-07-05] MEDS: LANTUS PER UNIT CHARGE SC SCH (20:16)
[2024-07-05] MEDS: rifAXIMin 550 MG TABLET PO SCH (20:17)
[2024-07-05] MEDS: PANTOprazole 40 MG TAB PO SCH (20:17)
[2024-07-05] MEDS ORDERED: LANTUS PER UNIT CHARGE SQ SCH (21:00)
[2024-07-05 21:58] LABS: Hematocrit (blood only) 23.8 % (42.0-52.0)
[2024-07-05] MEDS: traMADol HCL 50 MG TABLET PO STA (22:36)
[2024-07-05] MEDS: ONDANSETRON INJ 2 MG/ML 2 ML VIAL IV PRN (22:56)
[2024-07-06] MEDS ORDERED: Nursing to Pharmacy Communication SCH
[2024-07-06] MEDS: MoRPHine SULFATE 4 MG/ML 1 ML CARP\\VIAL IV STA (00:09)
[2024-07-06 06:39] LABS: Hematocrit (blood only) 24.2 % (42.0-52.0); Mean Corpuscular Hemoglobin 31.4 pg (25.0-34.0); Mean Corpuscular Hgb Conc 33.1 g/dL (32.0-36.0); Mean Corpuscular Volume 94.9 fL (80.0-100.0); Mean Platelet Volume 12.1 fL (9.4-12.4); Platelet Count 50 K/uL (130-400); RDW Coefficient of Variation 19.4 % (11.5-14.5); Red Blood Count 2.55 M/uL (4.70-6.10); White Blood Count 5.62 K/ul (4.8-10.8)
[2024-07-06 07:01] LABS: Albumin Level 3.2 gm/dl (3.4-5.0); BUN Creatinine Ratio 21.2 (10-20); Bilirubin,Total 7.8 mg/dl (0.2-1.0); Calcium 8.4 mg/dl (8.6-10.3); Creatinine Clr Calc Pharmacy 48.8 ml/min; Est GFR (African American) 58.5 ml/min; Est GFR (Non-African American) 50.4 ml/min; Globulin 3.2 gm/dl (2.5-4.0); Magnesium 1.5 mg/dl (1.7-2.4); Potassium 3.9 mmol/L (3.5-5.1); Total Protein 6.4 gm/dl (6.0-8.3)
[2024-07-06] MEDS: FINASTERIDE 5 MG TAB PO SCH (08:32)
[2024-07-06] MEDS: ADVANCED PROBIOTIC 625 MG CAPSULE PO SCH (08:32)
[2024-07-06] MEDS: allopurinoL 100 MG TAB PO SCH (08:32)
[2024-07-06] MEDS: MAGNESIUM CHLORIDE W/CALCIUM 64MG DELAYED REL TAB PO SCH (08:32)
[2024-07-06] MEDS: DULoxetine HCL 30 MG CAP PO SCH (08:32)
[2024-07-06] MEDS: ACETYLCYSTEINE 600 MG CAP PO SCH (08:32)
[2024-07-06] MEDS: OXYBUTYNIN CHLORIDE XL 5 MG TABCR PO SCH (08:32)
[2024-07-06] MEDS ORDERED: NON-FORMULARY MEDICATION (Zinc Gluconate 50 mg Tablet) PO SCH (09:00)
--- NOTE | 2024-07-06 10:25 | Gastrointestinal Consultation ---
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 AMS - Improved mentation this AM - Continue Lactulose - Continue Xifaxan - Treat diverticulitis - Treat UTI - Full infectious work up - Blood cx - Urine cx - Chest imaging - Small ascites on imaging, doubt enough for diagnostic paracentesis - Head CT 2. Cirrhosis management - Low residue diet as tolerated - Continue lactulose - Continue Xifaxan - MELD labs every 6 months - ABD imaging w/ AFP every 6 months - EGD every 1-2 years - No ETOH - No NSAIDs - Avoid hepatotoxin - Low NA diet, less than 2G daily - Less than 2G acetaminophen containing products daily - Defer management of pancreatic lesion to his primary OP GI provider, EUS recommended if not previously completed I spent a total of 80 minutes on the date of service in review of patient's record, and previously obtained information in person and appropriate medical visit, discussion and education of plan, with patient and/or caregiver, placing orders for tests/referral/procedures as medically necessary and documentation of pertinent clinical information in patient's medical records for their visit today. Supervising Physician Co-Signing Physician Notes I personally saw and examined the patient. I have reviewed the chart and agree with the documentation provided by the MISCELLANEOUS MACHINE OPERATOR including discussion about the asse ssment, treatment and plan. 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 [facility] JEFF Archibald. He was previously listed but removed by [facility] due to frailty. Notes that he has had numerous admissions, issues with volume status, diuretics held related to CKD. Now HE is imporved. Limited options here except supportive care. Treat his infections and the HE will improve. 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 Following with [facility], JEFF Archibald. He was previously listed but removed by [facility] due to frailty. Notes that he has had numerous admissions, issues with volume status, diuretics held related to CKD. Notes from GI standpoint feels okay. Denies abd pain. No nausea, vomiting. Tolerating PO intake well. No black or bloody stools. He is awake, alert and oriented to person, place and time. He does have difficultly with recall of events. MELD 19 Ammonia 167 --> 60 Urine Culture pending CTAP 2023: No acute traumatic process within the chest, abdomen, or pelvis. Chronic compression deformities again noted from T11 through L2, unchanged. No acute fractures within the thoracic or lumbar spine Cirrhotic liver with sequela of portal hypertension which is similar to the prior study. There are 2 left hepatic lobe masses are again noted one of which has decreased in size in the interval. Bladder wall thickening with surrounding inflammatory change. This suggests a cystitis. Evidence for acute sigmoid diverticulitis. No perforation or abscess . Cholelithiasis. Bladder calculi again noted. Additional findings as described above. Decompensations: Varices:iradicated.Most recent EGD08/09/23:portal hypertensive gastropathy, no varices Radiation Proctitis: Flex sig 02/01/22 and 04/12/22: APC'ed Hepatic Encephalopathy: Lactulose 15ml BID and Rifaximin. Ascites: Post TIPs and revision. Lasix 40mg daily held, paracentesis about every 2-3 week Anemia: Managed by Dr. Ramires HCC: s/p TACE s/p bland embolization, MRI liver with [id number]. Screenings: Colonoscopy08/09/23- Preparation of the colon was fair.Two 5mm transverse colon polyps removed, moderatesigmoid/descending colondiverticulosis, internal hemorrhoids Allergies Allergy/AdvReac Type Severity Reaction Status Date / Time No Known Allergies Allergy Mild Verified 06/29/24 08:29 Home Medications Medication Instructions Recorded Confirmed Type allopurinol 100 mg tablet 200 mg PO QAM 05/16/20 07/05/24 History Lactobacil.acidophilus-Bifido.animalis 1 cap PO QAM 05/17/23 07/05/24 History 5 billion cell sprinkle capsule (Probiotic) ferrous sulfate 325 mg (65 mg 650 mg PO QAM 05/17/23 07/05/24 History iron) tablet (iron) atwdbgoqupal-xmn-ocuay acid-vit 1 tab PO DAILY 05/17/23 07/05/24 History K-lycop 400 mcg-20 mcg-370 mcg tablet (Men's 50 Plus Multivitamin) duloxetine 30 mg capsule,delayed 30 mg PO QAM 02/02/24 07/05/24 History release pantoprazole 40 mg tablet,delayed 40 mg PO AMPM 02/02/24 07/05/24 History release rifaximin 550 mg tablet (Xifaxan) 550 mg PO AMHS 02/02/24 07/05/24 History finasteride 5 mg tablet 5 mg PO QAM 03/20/24 07/05/24 History lactulose 10 gram oral packet 10 g PO BID PRN . 03/20/24 07/05/24 History (Kristalose) mirtazapine 30 mg tablet 30 mg PO HS 03/20/24 07/05/24 History acetylcysteine 600 mg capsule 600 mg PO DAILY 05/03/24 07/05/24 History cholestyramine (with sugar) 4 gram 1 ea PO BID 05/20/24 07/05/24 History powder for susp in a packet insulin glargine 100 unit/mL (3 25 unit subcut QPM 05/20/24 07/05/24 History mL) subcutaneous pen (Lantus Solostar U-100 Insulin) magnesium chloride 64 mg 64 mg PO DAILY 05/20/24 07/05/24 History (magnesium chloride) tablet,delayed release (Mag 64) oxybutynin chloride 5 mg tablet 5 mg PO TID PRN Bladder Spasms 05/20/24 07/05/24 History solifenacin 5 mg tablet 5 mg PO DAILY 05/20/24 07/05/24 History triamcinolone acetonide 0.1 % 1 applic topical DAILY 05/20/24 07/05/24 History topical cream zinc gluconate 50 mg tablet 50 mg PO DAILY ##0 05/20/24 07/05/24 History furosemide 40 mg tablet 40 mg PO QAM #30 tabs 05/30/24 07/05/24 Rx spironolactone 100 mg tablet 100 mg PO QAM #30 tabs 05/30/24 07/05/24 Rx Patient History Medical History (Updated 07/05/24 @ 16:00 by Collin Xie MD) CKD (chronic kidney disease) stage 3, GFR 30-59 ml/min Thrombocytopenia DM type 2 (diabetes mellitus, type 2) Hx of malignant neoplasm of prostate History of blood transfusion 11/2022 Hepatocellular carcinoma Spinal fracture of T12 vertebra History of recent hospitalization 06/2023 [facility] hepatic encephalopathy Liver spots Under surveillance, stable per patient Anxiety and depression 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 Anemia of chronic disease under surveillance History of panic attacks Gout No current issues GERD (gastroesophageal reflux disease) GAVE (gastric antral vascular ectasia) Hypertension Hx Esophageal varices EGD 05/22/23 ([facility]): Grade 1 varices in distal esophagus without high risk stigmata Upper GI bleed Hx Psoriasis Surgical History History of left cataract surgery History of right cataract surgery History of prostate biopsy malignant S/P TIPS (transjugular intrahepatic portosystemic shunt) History of esophagogastroduodenoscopy (EGD) Most recent 05/2023 [facility] History of colonoscopy with polypectomy History of tonsillectomy and adenoidectomy History of abdominal paracentesis Multiple, most recent 01/2023 Family History Father , "3/4 liver gone due to drinking" Colorectal cancer, Onset Age: 63 Mother Lung cancer Daughter Cancer cervical and thyroid cancers Ovarian cancer Other No family history of adverse response to anesthesia 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 Smoking Status: Unknown if ever smoked Second Hand Exposure: No; Hx Alcohol Use: No Hx Substance Use: No Preferred Language: Bengali Communication Ability: Impaired Communication Ability Comment: AMS, not answering questions appropriately Visual Impairment: No Limitations Hearing Ability: Normal Labor Relations Teacher Required: No Beliefs That Will Affect Care: None marital status: Current Living Situation: Spouse Current Living Situation Comment: 1 level single family home 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 Physical Exam Constitutional: WD/WN, vitals as above Respiratory: normal respiratory effort Cardiovascular: Rate/Rhythm: regular rate and regular rhythm Gastrointestinal (Abdomen): normal bowel sounds, soft, nontender, no hepatosplenomegaly Skin: no rashes, warm and dry Results & Data Vital Signs (Past 12 Hours) Vital Signs Temp Pulse Pulse Resp BP Pulse Ox O2 Del Method 07/06/24 07:25 36.7 C 74 16 143/68 H 97 Room Air 07/06/24 07:06 77 07/06/24 03:37 36.6 C 69 18 131/64 94 Room Air 07/05/24 23:03 36.8 C 68 18 135/57 L 99 Room Air 07/05/24 22:25 Room Air PG Care Time/CCT Total # of Minutes Spent Total Time Spent with Patient: Total time spent is greater than 50% in coordination of care (as documented) at patient's floor/unit and/or counseling patient: Coding Level of Care Code 88669 INT INP/OBS CARE 3/75MIN Diagnoses AMS (altered mental status) R41.82
--- NOTE | 2024-07-06 11:46 | Hospitalist Progress Note ---
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 Hepatic Encephalopathy Acute Sigmoid Diverticulitis Acute Urinary Tract Infection Patient was initially a trauma alert in the ED after being found lying outside on the ground naked. Full trauma work-up was initiated in the ED and the imaging was rather benign except for the incidental finding of acute sigmoid diverticulitis, cholelithiasis Old findings of T12-L2 chronic compression fractures, cirrhosis, hepatic lobe masses, bladder calculi Patient was afebrile and hemodynamically stable at time of admission. Ammonia level significantly elevated at 167 Continue lactulose, ensure 3-4 BM per day Continue rifaximin GI eval and recs noted Trial of clears Continue zosyn for now Follow up infectious workup Diabetes Mellitus Type II [Insulin-Dependent] Holding MACHINE CLIPPER diabetic meds; Initiating basal/bolus insulin regimen, BSG checks ACHS. Hgb A1c 8.0 on 05/18/24; CKD Stage III Creatinine 1.17 on admission [baseline Cr ~1.1 per chart review]. Continue holding MACHINE CLIPPER Lasix and spironolactone for today. Liver Cirrhosis 2/2 FOFANA H/O Esophageal Varices & Gastric Antral Vascular Ectasia Per chart review, appears pt requires paracentesis [id number]. A therapeutic paracentesis was performed on 06/15 with 1.2 L removed and discarded from a pocket of fluid identified in the left lower quadrant. Hepatocellular Carcinoma Chronic Anemia & Thrombocytopenia Pt underwent transarterial bland embolization at [facility] on 06/11. Pt follows w/ [facility] [Dr. Ramires]. Baseline Hgb ~8 per chart review; Hgb 8.2 on admission. Plt count 56K on admission - appears rather stable per chart review [2/2 liver cirrhosis]. Pt has required frequent blood transfusions in the past. He was also treated multiple times w/ iron infusions. Patient saw [place] [facility] on 07/02 - Patient was receptive to the option of [facility]. H/O Prostate Cancer & Radiation Cystitis Completed radiation therapy to the prostate on 04/05/21; Pt follows w/ [facility] Hematology/Oncology [Dr. Ramires]. Pt also follows w/ [facility] Urology [Dr. Frank Peraza]. History of radiation cystitis s/p cystourethroscopy with clot evacuation and fulguration. Can continue MACHINE CLIPPER finasteride, oxybutynin and solifenacin. H/O Gout: Can continue MACHINE CLIPPER allopurinol. Anxiety & Depression: Can continue MACHINE CLIPPER duloxetine. Continue to hold mirtazapine for now 2/2 sedating effects. DVT Prophylaxis: SCDs/TEDs Code Status: Full code PCP: Kristen Vences DO I spent a total of 50 minutes coordinating, documenting and providing care for this patient excluding time spent in performance of separately billed services Admission and Anticipated Discharge Date Admission Date: July 05, 2024 Subjective Patient seen and examined He is currently alert and oriented to person and place only Denied any complaints. However, ROS is limited due to mental status Physical Exam Constitutional: + well hydrated; no acute distress Eyes: PERRL ENMT: external ear and nose normal, oropharynx normal Respiratory: normal respiratory effort, lungs clear to auscultation Cardiovascular: Rate/Rhythm: regular rate and regular rhythm Gastrointestinal (Abdomen): normal bowel sounds, soft, nontender, no hep atosplenomegaly Neurologic: PERRL, EOMI, accommodation nl, no face palsy, no dysarthria Results & Data Results & Data Vital Signs (Past 12 Hours) Vital Signs Temp Pulse Pulse Resp BP BP Pulse Ox 07/06/24 11:21 36.9 C 80 18 139/58 L 98 07/06/24 07:25 36.7 C 74 16 143/68 H 97 07/06/24 07:06 77 07/06/24 03:37 36.6 C 69 18 131/64 94 O2 Del Method 07/06/24 11:21 Room Air 07/06/24 07:25 Room Air 07/06/24 07:06 07/06/24 03:37 Room Air Laboratory Results Abnormal lab results 07/05/24 07/05/24 07/05/24 Range/Units 18:01 20:12 21:39 RBC (4.70-6.10) M/uL Hgb 8.0 L (14.0-18.0) g/dl Hct 23.8 L (42.0-52.0) % RDW Std Deviation (36.4-46.3) fL RDW Coeff of Violetta (11.5-14.5) % Plt Count (130-400) K/uL Chloride (98-107) mmol/L Carbon Dioxide (21-32) mmol/L BUN (6-23) mg/dl BUN/Creatinine Ratio (10-20) Glucose (70-99(Fasting)) mg/dl POC Glucose 140 H 189 H (70-99) mg/dl Lactate (0.4-2.0) mmol/L Calcium (8.6-10.3) mg/dl Magnesium (1.7-2.4) mg/dl Total Bilirubin (0.2-1.0) mg/dl Alkaline Phosphatase (34-104) U/L Albumin (3.4-5.0) gm/dl 07/05/24 07/06/24 07/06/24 Range/Units 23:49 05:24 05:30 RBC 2.55 L (4.70-6.10) M/uL Hgb 8.0 L (14.0-18.0) g/dl Hct 24.2 L (42.0-52.0) % RDW Std Deviation 67.0 H (36.4-46.3) fL RDW Coeff of Violetta 19.4 H (11.5-14.5) % Plt Count 50 L (130-400) K/uL Chloride 115 H (98-107) mmol/L Carbon Dioxide 20 L (21-32) mmol/L BUN 29 H (6-23) mg/dl BUN/Creatinine Ratio 21.2 H (10-20) Glucose 155 H (70-99(Fasting)) mg/dl POC Glucose 170 H 164 H (70-99) mg/dl Lactate 2.2 H* (0.4-2.0) mmol/L Calcium 8.4 L (8.6-10.3) mg/dl Magnesium 1.5 L (1.7-2.4) mg/dl Total Bilirubin 7.8 H D (0.2-1.0) mg/dl Alkaline Phosphatase 158 H (34-104) U/L Albumin 3.2 L (3.4-5.0) gm/dl 07/06/24 07/06/24 Range/Units 08:48 12:12 RBC (4.70-6.10) M/uL Hgb (14.0-18.0) g/dl Hct (42.0-52.0) % RDW Std Deviation (36.4-46.3) fL RDW Coeff of Violetta (11.5-14.5) % Plt Count (130-400) K/uL Chloride (98-107) mmol/L Carbon Dioxide (21-32) mmol/L BUN (6-23) mg/dl BUN/Creatinine Ratio (10-20) Glucose (70-99(Fasting)) mg/dl POC Glucose 149 H (70-99) mg/dl Lactate 2.2 H* (0.4-2.0) mmol/L Calcium (8.6-10.3) mg/dl Magnesium (1.7-2.4) mg/dl Total Bilirubin (0.2-1.0) mg/dl Alkaline Phosphatase (34-104) U/L Albumin (3.4-5.0) gm/dl
--- NOTE | 2024-07-06 12:24 | Urology Consultation ---
Date of Consultation July 06, 2024 Assessment & Plan (1) Hematuria: Plan 74yo/M with a history of prostate cancer and recurrent hematuria status post radiation admitted with hepatic encephalopathy, acute sigmoid diverticulitis, and UTI. Urology consulted for hematuria. CT abdomen pelvis noted bladder wall thickening with surrounding inflammation suggestive of cystitis, no hydronephrosis. Patient afebrile and hemodynamically stable at present Labscreatinine 1.37, WBC 5.62, hemoglobin 8.0 Urine culture pending. He is voiding spontaneously. There is no urine to examine at time of visit. He was bladder scanned on admission for PVR of 0ml. No acute intervention warranted. Continue to monitor ability to void. PVRs can be obtained however unlikely to be accurate due to ascites. If patient unable to void for greater than 6 hours may perform CIC or place indwelling Kan catheter. Continue supportive care and management per primary team. Antibiotics as indicated pending urine culture results. Patient should follow-up with Dr. Peraza outpatient. Urology will sign-off. Please call with any further questions, concerns, or changes in patient's status. History of Present Illness Attending Physician: Gloria Olguin MD History of Present Illness This is a 74 year old male with a PMHx of DM type II, CKD stage III, dyslipidemi a, chronic gout, restrictive lung disease, pulmonary hypertension, gastric antral vascular ectasia, esophageal varices, history of portal vein thrombosis, cirrhosis of liver, GERD, history of liver cell carcinoma, prostate cancer, radiation cystitis, acquired thrombocytopenia, chronic anemia who presented to the ED via EMS due to altered mental status. In the ED, patient was afebrile and hemodynamically stable. UA suggestive of UTI. IV Zosyn given in the ED. Patient admitted to medicine service with hepatic encephalopathy, acute sigmoid diverticulitis, and UTI. Urology was consulted for hematuria. CT abdomen pelvis - 1. No acute traumatic process within the chest, abdomen, or pelvis. 2. Chronic compression deformities again noted from T11 through L2, unchanged. No acute fractures within the thoracic or lumbar spine. 3. Cirrhotic liver with sequela of portal hypertension which is similar to the prior study. 4. There are 2 left hepatic lobe masses are again noted one of which has decr eased in size in the interval. 5. Bladder wall thickening with surrounding inflammatory change. This suggests a cystitis. 6. Evidence for acute sigmoid diverticulitis. No perforation or abscess. 7. Cholelithiasis. 8. Bladder calculi again noted. History of prostate cancer status post radiation and recurrent hematuria. He follows with Dr. Peraza of [facility] urology. Patient seen at bedside today. Awake, resting in bed on arrival. No acute distress. Reports he is voiding spontaneously without issue. He does report some hematuria, no clots. Feels he is emptying his bladder well for the most part. Denies dysuria. Denies fever, chills, nausea, vomiting. Denies suprapubic pain. Allergies Allergy/AdvReac Type Severity Reaction Status Date / Time No Known Allergies Allergy Mild Verified 06/29/24 08:29 Home Medications Medication Instructions Recorded Confirmed Type allopurinol 100 mg tablet 200 mg PO QAM 05/16/20 07/05/24 History Lactobacil.acidophilus-Bifido.animalis 1 cap PO QAM 05/17/23 07/05/24 History 5 billion cell sprinkle capsule (Probiotic) ferrous sulfate 325 mg (65 mg 650 mg PO QAM 05/17/23 07/05/24 History iron) tablet (iron) tlyezanvwpvw-acs-nkccu acid-vit 1 tab PO DAILY 05/17/23 07/05/24 History K-lycop 400 mcg-20 mcg-370 mcg tablet (Men's 50 Plus Multivitamin) duloxetine 30 mg capsule,delayed 30 mg PO QAM 02/02/24 07/05/24 History release pantoprazole 40 mg tablet,delayed 40 mg PO AMPM 02/02/24 07/05/24 History release rifaximin 550 mg tablet (Xifaxan) 550 mg PO AMHS 02/02/24 07/05/24 History finasteride 5 mg tablet 5 mg PO QAM 03/20/24 07/05/24 History lactulose 10 gram oral packet 10 g PO BID PRN . 03/20/24 07/05/24 History (Kristalose) mirtazapine 30 mg tablet 30 mg PO HS 03/20/24 07/05/24 History acetylcysteine 600 mg capsule 600 mg PO DAILY 05/03/24 07/05/24 History cholestyramine (with sugar) 4 gram 1 ea PO BID 05/20/24 07/05/24 History powder for susp in a packet insulin glargine 100 unit/mL (3 25 unit subcut QPM 05/20/24 07/05/24 History mL) subcutaneous pen (Lantus Solostar U-100 Insulin) magnesium chloride 64 mg 64 mg PO DAILY 05/20/24 07/05/24 History (magnesium chloride) tablet,delayed release (Mag 64) oxybutynin chloride 5 mg tablet 5 mg PO TID PRN Bladder Spasms 05/20/24 07/05/24 History solifenacin 5 mg tablet 5 mg PO DAILY 05/20/24 07/05/24 History triamcinolone acetonide 0.1 % 1 applic topical DAILY 05/20/24 07/05/24 History topical cream zinc gluconate 50 mg tablet 50 mg PO DAILY ##0 05/20/24 07/05/24 History furosemide 40 mg tablet 40 mg PO QAM #30 tabs 05/30/24 07/05/24 Rx spironolactone 100 mg tablet 100 mg PO QAM #30 tabs 05/30/24 07/05/24 Rx Patient History Medical History (Updated 07/05/24 @ 16:00 by Collin Xie MD) CKD (chronic kidney disease) stage 3, GFR 30-59 ml/min Thrombocytopenia DM type 2 (diabetes mellitus, type 2) Hx of malignant neoplasm of prostate History of blood transfusion 11/2022 Hepatocellular carcinoma Spinal fracture of T12 vertebra History of recent hospitalization 06/2023 [facility] hepatic encephalopathy Liver spots Under surveillance, stable per patient Anxiety and depression 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 Anemia of chronic disease under surveillance History of panic attacks Gout No current issues GERD (gastroesophageal reflux disease) GAVE (gastric antral vascular ectasia) Hypertension Hx Esophageal varices EGD 05/22/23 ([facility]): Grade 1 varices in distal esophagus without high risk stigmata Upper GI bleed Hx Psoriasis Surgical History History of left cataract surgery History of right cataract surgery History of prostate biopsy malignant S/P TIPS (transjugular intrahepatic portosystemic shunt) History of esophagogastroduodenoscopy (EGD) Most recent 05/2023 [facility] History of colonoscopy with polypectomy History of tonsillectomy and adenoidectomy History of abdominal paracentesis Multiple, most recent 01/2023 Family History Father , "3/4 liver gone due to drinking" Colorectal cancer, Onset Age: 63 Mother Lung cancer Daughter Cancer cervical and thyroid cancers Ovarian cancer Other No family history of adverse response to anesthesia 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 Smoking Status: Unknown if ever smoked Second Hand Exposure: No; Hx Alcohol Use: No Hx Substance Use: No Preferred Language: [place] Communication Ability: Impaired Communication Ability Comment: AMS, not answering questions appropriately Visual Impairment: No Limitations Hearing Ability: Normal Pmp Required: No Beliefs That Will Affect Care: None marital status: Current Living Situation: Spouse Current Living Situation Comment: 1 level single family home 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 How many Children do You have: 6 How many Children do You have Comment: one , eldest daughter in her sleep from seizure disorder Feels Safe at Home: Yes Childhood Exposure to Second-Hand Smoke: Yes Diet Comment: "I watch my sugar, average fasting is 140 mg/dl" caffeine: Yes (cola, sugar free, decaf) during the past year weight has: remained stable Dental Care, Regularly: No Physical Activity Frequency: Does not Exercise Seatbelt Use: always Sunscreen Use: Yes Assistive Devices: Walker Review of Systems Review of Systems: All systems reviewed & are unremarkable except as noted in HPI & below Physical Exam Constitutional: no acute distress Neck: normal visual inspection Respiratory: no respiratory distress and no labored breathing Musculoskeletal: Head/Neck/Chest: normocephalic Skin: No visible rashes or lesions to exposed skin areas Neurologic: moves all extremities and awake Psychiatric: Orientation: alert, oriented to person and cooperative Results & Data Vital Signs (Past 12 Hours) Vital Signs Temp Pulse Pulse Resp BP Pulse Ox O2 Del Method 07/06/24 07:25 36.7 C 74 16 143/68 H 97 Room Air 07/06/24 07:06 77 07/06/24 03:37 36.6 C 69 18 131/64 94 Room Air 07/05/24 23:03 36.8 C 68 18 135/57 L 99 Room Air 07/05/24 22:25 Room Air 07/05/24 21:42 69 PG Care Time/CCT Total # of Minutes Spent Total Time Spent with Patient: Total time spent is greater than 50% in coordination of care (as documented) at patient's floor/unit and/or counseling patient: Coding Level of Care Code 56158 INT INP/OBS CARE 2/55MIN Diagnoses Hematuria R31.0 Hematuria type: gross (1) Hematuria Hematuria type: gross Qualified Code(s): R31.0 - Gross hematuria
[2024-07-06] MEDS: INSULIN ASPART PER UNIT CHARGE SC SCH (17:46)
[2024-07-07 06:43] LABS: Albumin Level 2.7 gm/dl (3.4-5.0); BUN Creatinine Ratio 20.8 (10-20); Bilirubin,Total 5.5 mg/dl (0.2-1.0); Calcium 7.8 mg/dl (8.6-10.3); Creatinine Clr Calc Pharmacy 42.2 ml/min; Est GFR (African American) 50.8 ml/min; Est GFR (Non-African American) 43.8 ml/min; Globulin 2.8 gm/dl (2.5-4.0); Hematocrit (blood only) 20.4 % (42.0-52.0); Hemoglobin 6.7 g/dl (14.0-18.0); Mean Corpuscular Hemoglobin 31.2 pg (25.0-34.0); Mean Corpuscular Hgb Conc 32.8 g/dL (32.0-36.0); Mean Corpuscular Volume 94.9 fL (80.0-100.0); Platelet Count 37 K/uL (130-400); Potassium 3.5 mmol/L (3.5-5.1); RDW Coefficient of Variation 19.3 % (11.5-14.5); RDW Standard Deviation 66.6 fL (36.4-46.3); Red Blood Count 2.15 M/uL (4.70-6.10); Total Protein 5.5 gm/dl (6.0-8.3); White Blood Count 3.75 K/ul (4.8-10.8)
[2024-07-07 06:58] LABS: INR 1.3 (0.9-1.1); Prothrombin Time 13.5 Seconds (9.0-12.0)
[2024-07-07 08:29] LABS: Magnesium 1.4 mg/dl (1.7-2.4); Phosphorus 3.3 mg/dl (2.5-4.9)
--- NOTE | 2024-07-07 09:15 | Pharmacy Report ---
Pharmacy Glycemic Short Note 2 - Date of Service July 07, 2024 - Glycemic Short BSG Results (Last 24 hours): 07/06/24 07/06/24 07/06/24 12:12 17:06 20:24 Glucose POC Glucose 149 H 205 H 90 07/07/24 07/07/24 05:36 08:05 Glucose 81 POC Glucose 96 OUTPATIENT ANTIDIABETIC REGIMEN: * Lantus 25 units SC qPM HbA1c: 8% on 05/18/24 (per H&P) ASSESSMENT: 07/07/24: * Patient was NPO yesterday until dinnertime, clears started at that time * Blood sugars ranging 90-205 mg/dL yesterday with fasting blood sugar of 96 mg/dL * Remains on IV Zosyn for acute diverticulitis * Will likely decrease basal insulin today, no change to Novolog anticipated 07/05/24: * Luis is a 74 yo T2DM admitted with hepatic encephalopathy, diverticulitis, and possible UTI. Patient was found this morning lying outside on the ground by his . Unknown if patient took insulin last evening. * During June 2024 admission, patient received 17-20 units of basal insulin per day with decent glycemic control. * Will utilize weight based Novolog dosing (weight/stress 2) and reduce basal insulin based on past admission usage + NPO status. PLAN FOR INPATIENT GLYCEMIC CONTROL: * Basal insulin * Lantus 5-10-15 units SC HS (see EHR for details) * Bolus insulin * NovoLog per scale ACHS or Q6hrs while NPO * Goal Range: Low 110 mg/dL - High 140 mg/dL * Correction Factor: 30 mg/dL/unit * Nutritional / Prandial insulin per carb ratio of 1 unit per 10 grams CHO consumed
[2024-07-07 09:51] LABS: Hematocrit (blood only) 19.9 % (42.0-52.0); Hemoglobin 6.6 g/dl (14.0-18.0)
[2024-07-07] MEDS ORDERED: SODIUM CHLORIDE 0.9% 250 ML IV PRN (10:30)
--- NOTE | 2024-07-07 10:40 | Hospitalist Progress Note ---
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 Hepatic Encephalopathy Acute Sigmoid Diverticulitis Acute Urinary Tract Infection Patient was initially a trauma alert in the ED after being found lying outside on the ground naked. Full trauma work-up was initiated in the ED and the imaging was rather benign except for the incidental finding of acute sigmoid diverticulitis, cholelithiasis Old findings of T12-L2 chronic compression fractures, cirrhosis, hepatic lobe masses, bladder calculi Patient was afebrile and hemodynamically stable at time of admission. Ammonia level significantly elevated at 167 Encephalopathy seem to have resolved. He is currently AOx3, good conversation with good insight Continue lactulose, ensure 3-4 BM per day Continue rifaximin GI eval and recs noted Advance diet as tolerated Deescalate to cipro and flagyl Urine culture growing Corynebacterium. Started on vanc Diabetes Mellitus Type II [Insulin-Dependent] Holding OUTPATIENT THERAPIST diabetic meds; Initiating basal/bolus insulin regimen, BSG checks ACHS. Hgb A1c 8.0 on 05/18/24; CKD Stage III Creatinine 1.17 on admission Cr has been trending up in the past month per chart review and EPIC Resume home lasix and aldactone Liver Cirrhosis 2/2 FOFANA H/O Esophageal Varices & Gastric Antral Vascular Ectasia Per chart review, appears pt requires paracentesis [id number]. A therapeutic paracentesis was performed on 06/15 with 1.2 L removed and discarded from a pocket of fluid identified in the left lower quadrant. Hepatocellular Carcinoma Pancytopenia, chronic Pt underwent transarterial bland embolization at [facility] on 06/11. Pt follows w/ [facility] Hematology/Oncology [Dr. Ramires]. Baseline Hgb ~8 per chart review; Hgb 8.2 on admission. Pt has required frequent blood transfusions in the past. He was also treated multiple times w/ iron infusions. Hb is 6.7 today Transfuse 1 pRBC and monitor to keep >7 Check anemia workup Patient saw [place] Palliative Medicine on 07/02 - Patient was receptive to the option of [facility] At Home. H/O Prostate Cancer & Radiation Cystitis Completed radiation therapy to the prostate on 04/05/21; Pt follows w/ [facility] Hematology/Oncology [Dr. Ramires]. Pt also follows / [facility] Urology [Dr. Frank Peraza]. History of radiation cystitis s/p cystourethroscopy with clot evacuation and fulguration. Can continue OUTPATIENT THERAPIST finasteride, oxybutynin and solifenacin. H/O Gout: Can continue OUTPATIENT THERAPIST allopurinol. Anxiety & Depression: Can continue OUTPATIENT THERAPIST duloxetine. Continue to hold mirtazapine for now 2/2 sedating effects. DVT Prophylaxis: SCDs/TEDs Code Status: Full code PCP: Kristen Vences DO I spent a total of 50 minutes coordinating, documenting and providing care for this patient excluding time spent in performance of separately billed services Admission and Anticipated Discharge Date Admission Date: July 05, 2024 Subjective Patient seen and examined Reports feeling better today Denied abd pain Denied hematochezia, melena. Reports occasional hematuria which he related to his prostate problems Denied dysuria, freq, urgency Denied fever and chills Denied cough, chest pain, SOB, hemoptysis He is AOx3 today Physical Exam Constitutional: + well hydrated; no acute distress ENMT: external ear and nose normal, oropharynx normal Respiratory: normal respiratory effort, lungs clear to auscultation Cardiovascular: Rate/Rhythm: regular rate and regular rhythm Gastrointestinal (Abdomen): normal bowel sounds, soft, nontender, no hepatosplenomegaly Musculoskeletal: No pedal edema Neurologic: PERRL, EOMI, accommodation nl, no face palsy, no dysarthria Psychiatric: A+Ox3, euthymic affect Results & Data Results & Data Vital Signs (Past 12 Hours) Vital Signs Temp Pulse Pulse Resp BP BP Pulse Ox 07/07/24 08:22 36.8 C 61 18 115/61 98 07/07/24 08:04 07/07/24 07:12 61 07/07/24 02:14 36.7 C 66 18 103/47 L 96 07/07/24 00:00 68 07/06/24 22:44 36.5 C 65 18 114/54 L 97 O2 Del Method 07/07/24 08:22 Room Air 07/07/24 08:04 Room Air 07/07/24 07:12 07/07/24 02:14 Room Air 07/07/24 00:00 07/06/24 22:44 Room Air Laboratory Results Abnormal lab results 07/06/24 07/06/24 07/07/24 Range/Units 12:12 17:06 05:36 WBC 3.75 L (4.8-10.8) K/ul RBC 2.15 L (4.70-6.10) M/uL Hgb 6.7 L* (14.0-18.0) g/dl Hct 20.4 L* (42.0-52.0) % RDW Std Deviation 66.6 H (36.4-46.3) fL RDW Coeff of Violetta 19.3 H (11.5-14.5) % Plt Count 37 L (130-400) K/uL PT 13.5 H (9.0-12.0) Seconds INR 1.3 H (0.9-1.1) Chloride 114 H (98-107) mmol/L BUN 32 H (6-23) mg/dl Creatinine 1.54 H (0.6-1.4) mg/dl BUN/Creatinine Ratio 20.8 H (10-20) POC Glucose 149 H 205 H (70-99) mg/dl Calcium 7.8 L (8.6-10.3) mg/dl Magnesium 1.4 L (1.7-2.4) mg/dl Total Bilirubin 5.5 H (0.2-1.0) mg/dl Alkaline Phosphatase 130 H (34-104) U/L Total Protein 5.5 L (6.0-8.3) gm/dl Albumin 2.7 L (3.4-5.0) gm/dl 07/07/24 Range/Units 08:26 WBC (4.8-10.8) K/ul RBC (4.70-6.10) M/uL Hgb 6.6 L* (14.0-18.0) g/dl Hct 19.9 L* (42.0-52.0) % RDW Std Deviation (36.4-46.3) fL RDW Coeff of Violetta (11.5-14.5) % Plt Count (130-400) K/uL PT (9.0-12.0) Seconds INR (0.9-1.1) Chloride (98-107) mmol/L BUN (6-23) mg/dl Creatinine (0.6-1.4) mg/dl BUN/Creatinine Ratio (10-20) POC Glucose (70-99) mg/dl Calcium (8.6-10.3) mg/dl Magnesium (1.7-2.4) mg/dl Total Bilirubin (0.2-1.0) mg/dl Alkaline Phosphatase (34-104) U/L Total Protein (6.0-8.3) gm/dl Albumin (3.4-5.0) gm/dl
[2024-07-07 11:07] LABS: Reticulocyte % 3.28 % (0.50-2.00); Reticulocytes # 0.07 10^6/uL (0.020-0.100)
[2024-07-07 11:43] LABS: Ferritin 314.9 ng/ml (8-388)
[2024-07-07 11:50] LABS: Folate (Folic Acid),Ser orPlas 12.95 ng/ml (>5.38)
[2024-07-07] MEDS: FUROSEMIDE 40 MG TAB PO SCH (12:28)
[2024-07-07] MEDS ORDERED: VANCOMYCIN CONSULT ACTIVE PRN (14:29)
[2024-07-07] MEDS: metroNIDAZOLE 500 MG/100 ML BAG IV SCH (15:24)
[2024-07-07] MEDS: CIPROFLOXACIN / D5W 400 MG/200 ML BAG IV SCH (15:24)
[2024-07-07] MEDS: VANCOMYCIN HCL 1,500 MG in SODIUM CHLORIDE 0.9% 500 ML IV ONE (15:45)
[2024-07-07] MEDS: CIPROFLOXACIN 250 MG TAB PO SCH (16:38)
[2024-07-07] MEDS ORDERED: CIPROFLOXACIN 500 MG TAB PO SCH (21:00)
[2024-07-07] MEDS: LANTUS PER UNIT CHARGE SC SCH (22:45)
[2024-07-07] MEDS: metroNIDAZOLE 500 MG TAB PO SCH (22:48)
[2024-07-08 06:11] LABS: Hematocrit (blood only) 21.9 % (42.0-52.0); Hemoglobin 7.3 g/dl (14.0-18.0); Mean Corpuscular Hemoglobin 31.1 pg (25.0-34.0); Mean Corpuscular Hgb Conc 33.3 g/dL (32.0-36.0); Mean Corpuscular Volume 93.2 fL (80.0-100.0); Mean Platelet Volume 12.7 fL (9.4-12.4); Platelet Count 38 K/uL (130-400); RDW Coefficient of Variation 18.7 % (11.5-14.5); RDW Standard Deviation 62.5 fL (36.4-46.3); Red Blood Count 2.35 M/uL (4.70-6.10); White Blood Count 2.78 K/ul (4.8-10.8)
[2024-07-08 06:22] LABS: Albumin Level 2.7 gm/dl (3.4-5.0); BUN Creatinine Ratio 21.2 (10-20); Bilirubin,Total 2.9 mg/dl (0.2-1.0); Calcium 7.6 mg/dl (8.6-10.3); Creatinine Clr Calc Pharmacy 42.6 ml/min; Est GFR (Non-African American) 44.9 ml/min; Globulin 2.7 gm/dl (2.5-4.0); Magnesium 1.4 mg/dl (1.7-2.4); Phosphorus 3.1 mg/dl (2.5-4.9); Potassium 3.6 mmol/L (3.5-5.1); Total Protein 5.4 gm/dl (6.0-8.3)
[2024-07-08 06:39] LABS: INR 1.2 (0.9-1.1); Prothrombin Time 12.7 Seconds (9.0-12.0)
--- NOTE | 2024-07-08 08:20 | Hospitalist Progress Note ---
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 Hepatic Encephalopathy Patient was initially a trauma alert in the ED after being found lying outside on the ground naked. Full trauma work-up was initiated in the ED and the imaging was rather benign except for the incidental finding of acute sigmoid diverticulitis, cholelithiasis Old findings of T12-L2 chronic compression fractures, cirrhosis, hepatic lobe masses, bladder calculi Patient was afebrile and hemodynamically stable at time of admission. Ammonia level significantly elevated at 167 GI eval and recs noted. Recommended or stated the following: "-- Continue Lactulose - Continue Xifaxan - Treat diverticulitis - Treat UTI - Full infectious work up - Blood cx - Urine cx - Chest imaging - Small ascites on imaging, doubt enough for diagnostic paracentesis - Head CT" Encephalopathy likely in setting of above and acute infections 9see below). Currently resolved. He is currently AOx3. Continue lactulose, ensure 3-4 BM per day Continue rifaximin Continue to moitor Acute Sigmoid Diverticulitis CT abd/pelvis noting "Evidence for acute sigmoid diverticulitis." Per ID Dr Ramos, recommends the following: -cipro 500mg bid -flagyl 500 tid for 14 days as well along with Linezolid (see below). Continue cipro 500mg BID and flagyl 500mg TID (Day 2/14) Acute Urinary Tract Infection UA suggestive of infection urine Cx grew > 100, 000 colonies of Corynebacterium urealyticum CT abd/pelvis suggestive of cystitis changes Infectious Disease consulted, per Dr Juarez recommended the following: -Continue IV vancomycin for UTI -On discharge, can step down to oral linezolid 600 mg BID to complete a total of 10 days. Continue IV Vancomycin at this time, Day 01/11 Liver Cirrhosis 2/2 FOFANA H/O Esophageal Varices & Gastric Antral Vascular Ectasia Per chart review, appears pt requires paracentesis [id number]. A therapeutic paracentesis was performed on 06/15 with 1.2 L removed and discarded from a pocket of fluid identified in the left lower quadrant. GI consulted, as above. recommended or stated the following: " Low residue diet as tolerated - Continue lactulose - Continue Xifaxan - MELD labs every 6 months - ABD imaging w/ AFP every 6 months - EGD every 1-2 years - No ETOH - No NSAIDs - Avoid hepatotoxin - Low NA diet, less than 2G daily - Less than 2G acetaminophen containing products daily - Defer management of pancreatic lesion to his primary OP GI provider, EUS recommended if not previously completed" Pancreatic Head Lesion Noted on CT abd/pelvis imaging GI and PCP followup Hepatocellular Carcinoma Pancytopenia, chronic Anemia, chronic Pt underwent transarterial bland embolization at [facility] on 06/11. Pt follows w/ [facility] [Dr. Ramires]. Baseline Hgb ~8 per chart review; Hgb 8.2 on admission. Pt has required frequent blood transfusions in the past. He was also treated multiple times w/ iron infusions. Hb is 6.7 today Transfuse 1 pRBC and monitor to keep >7 Anemia panel unremarkable Patient saw [facility] on 07/02 - Patient was receptive to the option of [facility] Home. Diabetes Mellitus Type II [Insulin-Dependent] Holding OVERNIGHT BABYSITTER diabetic meds; Initiating basal/bolus insulin regimen, BSG checks ACHS. Hgb A1c 8.0 on 05/18/24; Continue to monitor CKD Stage III Creatinine 1.17 on admission Cr has been trending up in the past month per chart review and EPIC Resume home lasix and aldactone H/O Prostate Cancer & Radiation Cystitis Completed radiation therapy to the prostate on 04/05/21; Pt follows / [facility] [Dr. Ramires]. Pt also follows / [facility] [Dr. Frank Peraza]. History of radiation cystitis s/p cystourethroscopy with clot evacuation and fulguration. Can continue OVERN[employer] BABYSITTER finasteride, oxybutynin and solifenacin. H/O Gout: Can continue OVERN[employer] BABYSITTER allopurinol. Anxiety & Depression: Can continue OVERN[employer] BABYSITTER duloxetine. Continue to hold mirtazapine for now 2/2 sedating effects. Diet: DMII/HH/low fiber DVT Prophylaxis: SCDs in setting of anemia requiring transfusion Dispo: PT/OT pending for further recs Admission and Anticipated Discharge Date Admission Date: July 05, 2024 Subjective pt was seen resting comfortably in bed. AAOx3. Denied acute concerns. Notes he did not sleep well overnight so wanted a "cat nap" Review of Systems Review of Systems: All systems reviewed & are unremarkable except as noted in Subjective Physical Exam Physical Exam: General: Alert, oriented. No acute distress Skin: No noted rashes or bruises Psych: Appropriate mood and affect Neuro: difficulty with movements in the bed HEENT: NC/AT CV: RRR Resp: Breath sounds clear bilaterally, no increased effort of breathing Abdomen: Soft, nontender Extremities: No edema in lower extremities bilaterally. Results & Data Results & Data Vital Signs (Past 12 Hours) Vital Signs Temp Pulse Pulse Resp BP Pulse Ox O2 Del Method 07/08/24 07:40 36.5 C 60 18 124/63 98 Room Air 07/08/24 07:07 60 07/08/24 02:45 36.7 C 62 16 121/62 96 Room Air 07/08/24 00:00 65 07/07/24 23:16 36.6 C 61 18 111/55 L 98 Room Air Diagnostic Findings Cervical Spine CT 07/05/24 07:[address] DOSE: 1495.96 mGy.cm HISTORY: Trauma TECHNIQUE: Multiaxial CT images of the cervical spine were performed and reformatted in the sagittal and coronal plane without the use of contrast. A dose lowering technique was utilized adhering to the principles of ALARA. COMPARISON: Cervical spine CT 06/14/2023. FINDINGS: No fractures. No subluxation. Prevertebral soft tissues and the C1-C2 interval are intact. No pneumothorax. IMPRESSION: No fractures within the cervical spine. ACT 112: Negative or not required by law. Electronically signed by: Abdoul Gonzalez M.D. 07/05/2024 8:[address] 07/05/24 07:[address] DOSE: HISTORY: Trauma TECHNIQUE: Multiaxial CT images of the maxillofacial region were performed and reformatted in the coronal plane without the use of contrast. A dose lowering technique was utilized adhering to the principles of ALARA. COMPARISON: None. FINDINGS: The visualized cervical spine, skull base, pterygoid plates, nasal bones, lamina papyracea, orbital floors, mandible, and zygomatic arches are intact. No fractures. The orbits are unremarkable. A periapical lucency at ADA 14. Multiple dental caries are noted IMPRESSION: No fractures within the maxillofacial region. Periodontal disease as described above. ACT 112: Negative or not required by law. Electronically signed by: Abdoul Gonzalez M.D. 07/05/2024 8:[address] 07/05/24 07:[address] DOSE: HISTORY: Trauma TECHNIQUE: Multiaxial CT images of the head were performed without the use of intravenous contrast. Automated exposure control was utilized for this study. A dose lowering technique was utilized adhering to the principles of ALARA. Comparison: Head CT 09/21/2023. Findings: Mild mucosal thickening within the maxillary sinuses. The mastoid air cells are clear. The calvarium and skull base are intact. There is no mass, hematoma, midline shift, acute infarct. White matter hypodensity is nonspecific but suggestive of microvascular ischemic change. The ventricles and sulci demonstrate mild age-related involutional changes. Impression: No acute intracranial abnormality. ACT 112: Negative or not required by law. Electronically signed by: Abdoul Gonzalez M.D. 07/05/2024 8:[address] 07/05/24 07:08 CT chest diagnostic wo con, CT abd pelvis wo con, CT thoracic spine wo con, CT lumbar spine wo con CT DOSE: 2231.45 mGy.cm HISTORY: trauma TECHNIQUE: Multiaxial CT images of the chest, abdomen, and pelvis were performed without contrast. Multiaxial CT images of the thoracic and lumbar spine were performed without contrast and reformatted in the sagittal and coronal planes. A dose lowering technique was utilized adhering to the principles of ALARA. COMPARISON: Abdomen and pelvis CT 06/13/2024. FINDINGS: Chest CT: No acute fractures within the chest. The central airways are patent. No pneumothorax. There is a punctate calcified granuloma within the left upper lobe. No focal lung consolidations to suggest a pneumonia. No evidence for pulmonary edema. Mild bilateral gynecomastia. Mild calcified plaque within the normal caliber thoracic aorta. There are severe coronary artery calcifications noted. There is a trace pericardial effusion. No pleural effusions. Normal esophagus. No mediastinal hematoma or lymphadenopathy. The heart is borderline enlarged. Thoracic spine CT: Mild chronic compression deformities from T11 through L2, unchanged. No acute fracture or subluxation within the thoracic spine. Paravertebral soft tissues are unremarkable. Abdomen and pelvis CT: No pneumoperitoneum. No pneumatosis. No acute fractures identified. Cirrhotic liver with a TIPS in place. This remains unchanged. The spleen remains enlarged. There is a small amount of ascites which is similar to the prior study. Cholelithiasis. No gallbladder wall thickening. There is a 3.7 cm left hepatic lobe mass on image 42. This is similar to the prior study. The additional left hepatic lobe mass appears to have decreased in size and measures 16 mm. No new hepatic masses identified. The adrenal glands are unremarkable. No hydronephrosis. No retroperitoneal hematoma or lymphadenopathy. A 1.7 cm peripherally calcified cystic lesion again noted at the pancreatic head. This remains unchanged. 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 Calcified plaque within the normal caliber abdominal aorta. Bladder wall thickening with adjacent flat stranding. A few bladder stones are noted the prostate gland remains enlarged. Multiple colonic diverticula. There is an inflamed diverticulum within the proximal sigmoid colon on image 233 consistent with an acute diverticulitis. No perforation or abscess at this time. No dilated loops of bowel to suggest an obstruction. Normal appendix. Lumbar spine CT: Mild chronic compression deformities from T11 through L2, unchanged. No acute fracture or subluxation within the lumbar spine. Paravertebral soft tissues are unremarkable. IMPRESSION: 1. No acute traumatic process within the chest, abdomen, or pelvis. 2. Chronic compression deformities again noted from T11 through L2, unchanged. No acute fractures within the thoracic or lumbar spine. 3. Cirrhotic liver with sequela of portal hypertension which is similar to the prior study. 4. There are 2 left hepatic lobe masses are again noted one of which has decreased in size in the interval. 5. Bladder wall thickening with surrounding inflammatory change. This suggests a cystitis. 6. Evidence for acute sigmoid diverticulitis. No perforation or abscess. 7. Cholelithiasis. 8. Bladder calculi again noted. 9. Additional findings as described above. ACT 112: Negative or not required by law. Electronically signed by: Abdoul Gonzalez M.D. 07/05/2024 9:[address] 07/05/24 07:08 CT chest diagnostic wo con, CT abd pelvis wo con, CT thoracic spine wo con, CT lumbar spine wo con CT DOSE: 2231.45 mGy.cm HISTORY: trauma TECHNIQUE: Multiaxial CT images of the chest, abdomen, and pelvis were performed without contrast. Multiaxial CT images of the thoracic and lumbar spine were performed without contrast and reformatted in the sagittal and coronal planes. A dose lowering technique was utilized adhering to the principles of ALARA. COMPARISON: Abdomen and pelvis CT 06/13/2024. FINDINGS: Chest CT: No acute fractures within the chest. The central airways are patent. No pneumothorax. There is a punctate calcified granuloma within the left upper lobe. No focal lung consolidations to suggest a pneumonia. No evidence for pulmonary edema. Mild bilateral gynecomastia. Mild calcified plaque within the normal caliber thoracic aorta. There are severe coronary artery calcifications noted. There is a trace pericardial effusion. No pleural effusions. Normal esophagus. No mediastinal hematoma or lymphadenopathy. The heart is borderline enlarged. Thoracic spine CT: Mild chronic compression deformities from T11 through L2, unchanged. No acute fracture or subluxation within the thoracic spine. Paravertebral soft tissues are unremarkable. Abdomen and pelvis CT: No pneumoperitoneum. No pneumatosis. No acute fractures identified. Cirrhotic liver with a TIPS in place. This remains unchanged. The spleen remains enlarged. There is a small amount of ascites which is similar to the prior study. Cholelithiasis. No gallbladder wall thickening. There is a 3.7 cm left hepatic lobe mass on image 42. This is similar to the prior study. The additional left hepatic lobe mass appears to have decreased in size and measures 16 mm. No new hepatic masses identified. The adrenal glands are unremarkable. No hydronephrosis. No retroperitoneal hematoma or lymphadenopathy. A 1.7 cm peripherally calcified cystic lesion again noted at the pancreatic head. This remains unchanged. 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 Calcified plaque within the normal caliber abdominal aorta. Bladder wall thickening with adjacent flat stranding. A few bladder stones are noted the prostate gland remains enlarged. Multiple colonic diverticula. There is an inflamed diverticulum within the proximal sigmoid colon on image 233 consistent with an acute diverticulitis. No perforation or abscess at this time. No dilated loops of bowel to suggest an obstruction. Normal appendix. Lumbar spine CT: Mild chronic compression deformities from T11 through L2, unchanged. No acute fracture or subluxation within the lumbar spine. Paravertebral soft tissues are unremarkable. IMPRESSION: 1. No acute traumatic process within the chest, abdomen, or pelvis. 2. Chronic compression deformities again noted from T11 through L2, unchanged. No acute fractures within the thoracic or lumbar spine. 3. Cirrhotic liver with sequela of portal hypertension which is similar to the prior study. 4. There are 2 left hepatic lobe masses are again noted one of which has decreased in size in the interval. 5. Bladder wall thickening with surrounding inflammatory change. This suggests a cystitis. 6. Evidence for acute sigmoid diverticulitis. No perforation or abscess. 7. Cholelithiasis. 8. Bladder calculi again noted. 9. Additional findings as described above. ACT 112: Negative or not required by law. Electronically signed by: Abdoul Gonzalez M.D. 07/05/2024 9:39 AM Abdomen/Pelvis CT 07/05/24 07:11 CT chest diagnostic wo con, CT abd pelvis wo con, CT thoracic spine wo con, CT lumbar spine wo con CT DOSE: 2231.45 mGy.cm HISTORY: trauma TECHNIQUE: Multiaxial CT images of the chest, abdomen, and pelvis were performed without contrast. Multiaxial CT images of the thoracic and lumbar spine were performed without contrast and reformatted in the sagittal and coronal planes. A dose lowering technique was utilized adhering to the principles of ALARA. COMPARISON: Abdomen and pelvis CT 06/13/2024. FINDINGS: Chest CT: No acute fractures within the chest. The central airways are patent. No pneumothorax. There is a punctate calcified granuloma within the left upper lobe. No focal lung consolidations to suggest a pneumonia. No evidence for pulmonary edema. Mild bilateral gynecomastia. Mild calcified plaque within the normal caliber thoracic aorta. There are severe coronary artery calcifications noted. There is a trace pericardial effusion. No pleural effusions. Normal esophagus. No mediastinal hematoma or lymphadenopathy. The heart is borderline enlarged. Thoracic spine CT: Mild chronic compression deformities from T11 through L2, unchanged. No acute fracture or subluxation within the thoracic spine. Paravertebral soft tissues are unremarkable. Abdomen and pelvis CT: No pneumoperitoneum. No pneumatosis. No acute fractures identified. Cirrhotic liver with a TIPS in place. This remains unchanged. The spleen remains enlarged. There is a small amount of ascites which is similar to the prior study. Cholelithiasis. No gallbladder wall thickening. There is a 3.7 cm left hepatic lobe mass on image 42. This is similar to the prior study. The additional left hepatic lobe mass appears to have decreased in size and measures 16 mm. No new hepatic masses identified. The adrenal glands are unremarkable. No hydronephrosis. No retroperitoneal hematoma or lymphadenopathy. A 1.7 cm peripherally calcified cystic lesion again noted at the pancreatic head. This re anai unchanged. 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 Calcified plaque within the normal caliber abdominal aorta. Bladder wall thickening with adjacent flat stranding. A few bladder stones are noted the prostate gland remains enlarged. Multiple colonic diverticula. There is an inflamed diverticulum within the proximal sigmoid colon on image 233 consistent with an acute diverticulitis. No perforation or abscess at this time. No dilated loops of bowel to suggest an obstruction. Normal appendix. Lumbar spine CT: Mild chronic compression deformities from T11 through L2, unchanged. No acute fracture or subluxation within the lumbar spine. Paravertebral soft tissues are unremarkable. IMPRESSION: 1. No acute traumatic process within the chest, abdomen, or pelvis. 2. Chronic compression deformities again noted from T11 through L2, unchanged. No acute fractures within the thoracic or lumbar spine. 3. Cirrhotic liver with sequela of portal hypertension which is similar to the prior study. 4. There are 2 left hepatic lobe masses are again noted one of which has decreased in size in the interval. 5. Bladder wall thickening with surrounding inflammatory change. This suggests a cystitis. 6. Evidence for acute sigmoid diverticulitis. No perforation or abscess. 7. Cholelithiasis. 8. Bladder calculi again noted. 9. Additional findings as described above. ACT 112: Negative or not required by law. Electronically signed by: Abdoul Gonzalez M.D. 07/05/2024 9:[address] 07/05/24 07:11 CT chest diagnostic wo con, CT abd pelvis wo con, CT thoracic spine wo con, CT lumbar spine wo con CT DOSE: 2231.45 mGy.cm HISTORY: trauma TECHNIQUE: Multiaxial CT images of the chest, abdomen, and pelvis were performed without contrast. Multiaxial CT images of the thoracic and lumbar spine were performed without contrast and reformatted in the sagittal and coronal planes. A dose lowering technique was utilized adhering to the principles of ALARA. COMPARISON: Abdomen and pelvis CT 06/13/2024. FINDINGS: Chest CT: No acute fractures within the chest. The central airways are patent. No pneumothorax. There is a punctate calcified granuloma within the left upper lobe. No focal lung consolidations to suggest a pneumonia. No evidence for pulmonary edema. Mild bilateral gynecomastia. Mild calcified plaque within the normal caliber thoracic aorta. There are severe coronary artery calcifications noted. There is a trace pericardial effusion. No pleural effusions. Normal esophagus. No mediastinal hematoma or lymphadenopathy. The heart is borderline enlarged. Thoracic spine CT: Mild chronic compression deformities from T11 through L2, unchanged. No acute fracture or subluxation within the thoracic spine. Paravertebral soft tissues are unremarkable. Abdomen and pelvis CT: No pneumoperitoneum. No pneumatosis. No acute fractures identified. Cirrhotic liver with a TIPS in place. This remains unchanged. The spleen remains enlarged. There is a small amount of ascites which is similar to the prior study. Cholelithiasis. No gallbladder wall thickening. There is a 3.7 cm left hepatic lobe mass on image 42. This is similar to the prior study. The additional left hepatic lobe mass appears to have decreased in size and measures 16 mm. No new hepatic masses identified. The adrenal glands are unremarkable. No hydronephrosis. No retroperitoneal hematoma or lymphadenopathy. A 1.7 cm peripherally calcified cystic lesion again noted at the pancreatic head. This remains unchanged. 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 Calcified plaque within the normal caliber abdominal aorta. Bladder wall thickening with adjacent flat stranding. A few bladder stones are noted the prostate gland remains enlarged. Multiple colonic diverticula. There is an inflamed diverticulum within the proximal sigmoid colon on image 233 consistent with an acute diverticulitis. No perforation or abscess at this time. No dilated loops of bowel to suggest an obstruction. Normal appendix. Lumbar spine CT: Mild chronic compression deformities from T11 through L2, unchanged. No acute fracture or subluxation within the lumbar spine. P aravertebral soft tissues are unremarkable.
[2024-07-08] MEDS: SPIRONOLACTONE 100 MG TAB PO SCH (08:23)
[2024-07-08] MEDS: VANCOMYCIN HCL 1,250 MG in SODIUM CHLORIDE 0.9% 250 ML IV SCH (08:25)
--- NOTE | 2024-07-08 08:49 | Pharmacy Report ---
Pharmacy PK ABX Note - Date of Service July 08, 2024 - Assessment and Plan Assessment 74 year old M receiving vancomycin, ciprofloxacin, and metronidazole for treatment of complicated UTI and acute diverticulitis. Pertinent microbiologic data includes: urine culture (07/05/24) growing Corynebacterium urealyticum (no sensitivities to follow). Pertinent PMH includes T2DM, CKD, hx of prostate cancer and radiation cystitis, hx liver cell carcinoma, and cirrhosis. Renal function appears to be stable (unsure of baseline). Day # 2 of vancomycin therapy. Plan Vancomycin * Loading dose: 1500 mg IV x 1 * Random level ordered for this morning (07/08) due to unclear baseline SCr * Vancomycin level resulted as 10.2 mcg/mL * Maintenance dose: 1250 mg IV every 24 hours * Regimen is predicted to achieve target AUC/SAMEER of 400-600 mg/L.hr * Random level ordered for: 07/10/24 Pharmacy will continue to follow and will adjust dose/frequency as necessary. Thank you. Pharmacy has transitioned to AUC monitoring for vancomycin. AUC/SAMEER is the preferred PK/PD target and is associated with decreased risk of nephrotoxicity compared to traditional trough targets.
[2024-07-08] MEDS: MAGNESIUM SULFATE / D5W 1 GM/100 ML BAG IV SCH (09:06)
[2024-07-08] MEDS: LANTUS PER UNIT CHARGE SC ONE (13:19)
--- NOTE | 2024-07-08 16:21 | Infectious Disease Consult ---
Date of Service July 08, 2024 Telehealth Information I performed this visit using a real-time telehealth connection between my location and the patients location ([facility]). After connecting through interactive tele-video, patient was identified by name and date of and/or wristband check.Patient (or authorized healthcare entry level sales representative) was informed that this was a telemedicine visit and it was being conducted confidentially over secure lines. My office door was closed and no on e else was present in the room with me.Patient (or authorized healthcare entry level sales representative) provided consent to proceed with the visit, expressed an understanding of privacy and security of the telemedicine visit, and gave permission to have a hospital entry level sales representative in the room in order to assist with the visit and to conduct portions of the visit, as needed. I informed the patient (or authorized healthcare entry level sales representative) that I reviewed their record and presented the opportunity for them to ask any questions regarding the visit today. The patient agreed to participate. Assessment & Plan (1) Acute urinary tract infection: (2) Sigmoid diverticulitis: (3) AMS (altered mental status): (4) Radiation cystitis: Plan Can continue on IV vancomycin while inpatient to treat Corynebacterium urealyticum in the urine. Can step-down to oral linezolid 600 mg twice daily to complete a course of 14 days including inpatient antibiotic days. Continue on both Cipro 500 mg twice daily and Flagyl 500 mg 3 times daily for the treatment of acute diverticulitis to complete a course of 14 days. Thank you for consulting Infectious Disease. We will sign off for now. History of Present Illness History of Present Illness Mr. Hale is a 74-year-old man with multiple comorbidities including type 2 diabetes, CKD stage 3, restrictive lung disease, liver cirrhosis with portal hypertension status post tips, liver cancer, prostate cancer S/P radiation with radiation cystitis who was admitted to [facility] on 07/05/2024 because of acute encephalopathy. On presentation, he was afebrile with elevated blood pressure of 161/53; otherwise, the rest of the vitals were within normal limits. His blood workup showed the normocytic anemia and thrombocytopenia (which are chronic), elevated INR of 1.2, elevated lactic acid, alkaline phosphatase of 170 and bilirubin of 4 as well as ammonia level of 167. Imaging of the chest/abdomen/pelvis was not impressive except for chronic compression deformities in the T11 through L2 along with a cirrhotic liver with sequelae of portal hypertension and the left hepatic lobe masses that he had from before as well as the bladder wall thickening which is likely secondary to radiation cystitis. It further demonstrated acute sigmoid diverticulitis. The UA showed pyuria more than 50 with urine culture growing Corynebacterium urealyticum. Id team was consulted for further recommendations and to help guide antibiotic treatment. Allergies Allergy/AdvReac Type Severity Reaction Status Date / Time No Known Allergies Allergy Mild Verified 06/29/24 08:29 Home Medications Medication Instructions Recorded Confirmed Type allopurinol 100 mg tablet 200 mg PO QAM 05/16/20 07/05/24 History Lactobacil.acidophilus-Bifido.animalis 1 cap PO QAM 05/17/23 07/05/24 History 5 billion cell sprinkle capsule (Probiotic) ferrous sulfate 325 mg (65 mg 650 mg PO QAM 05/17/23 07/05/24 History iron) tablet (iron) pnkeggzxfqpi-qzg-vazlg acid-vit 1 tab PO DAILY 05/17/23 07/05/24 History K-lycop 400 mcg-20 mcg-370 mcg tablet (Men's 50 Plus Multivitamin) duloxetine 30 mg capsule,delayed 30 mg PO QAM 02/02/24 07/05/24 History release pantoprazole 40 mg tablet,delayed 40 mg PO AMPM 02/02/24 07/05/24 History release rifaximin 550 mg tablet (Xifaxan) 550 mg PO AMHS 02/02/24 07/05/24 History finasteride 5 mg tablet 5 mg PO QAM 03/20/24 07/05/24 History lactulose 10 gram oral packet 10 g PO BID PRN . 03/20/24 07/05/24 History (Kristalose) mirtazapine 30 mg tablet 30 mg PO HS 03/20/24 07/05/24 History acetylcysteine 600 mg capsule 600 mg PO DAILY 05/03/24 07/05/24 History cholestyramine (with sugar) 4 gram 1 ea PO BID 05/20/24 07/05/24 History powder for susp in a packet insulin glargine 100 unit/mL (3 25 unit subcut QPM 05/20/24 07/05/24 History mL) subcutaneous pen (Lantus Solostar U-100 Insulin) magnesium chloride 64 mg 64 mg PO DAILY 05/20/24 07/05/24 History (magnesium chloride) tablet,delayed release (Mag 64) oxybutynin chloride 5 mg tablet 5 mg PO TID PRN Bladder Spasms 05/20/24 07/05/24 History solifenacin 5 mg tablet 5 mg PO DAILY 05/20/24 07/05/24 History triamcinolone acetonide 0.1 % 1 applic topical DAILY 05/20/24 07/05/24 History topical cream zinc gluconate 50 mg tablet 50 mg PO DAILY ##0 05/20/24 07/05/24 History furosemide 40 mg tablet 40 mg PO QAM #30 tabs 05/30/24 07/05/24 Rx spironolactone 100 mg tablet 100 mg PO QAM #30 tabs 05/30/24 07/05/24 Rx Patient History Medical History (Updated 07/08/24 @ 16:20 by Dane Juarez MD) CKD (chronic kidney disease) stage 3, GFR 30-59 ml/min Thrombocytopenia DM type 2 (diabetes mellitus, type 2) Hx of malignant neoplasm of prostate History of blood transfusion 11/2022 Hepatocellular carcinoma Spinal fracture of T12 vertebra History of recent hospitalization 06/2023 [facility] hepatic encephalopathy Liver spots Under surveillance, stable per patient Anxiety and depression 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 Anemia of chronic disease under surveillance History of panic attacks Gout No current issues GERD (gastroesophageal reflux disease) GAVE (gastric antral vascular ectasia) Hypertension Hx Esophageal varices EGD 05/22/23 ([facility]): Grade 1 varices in distal esophagus without high risk stigmata Upper GI bleed Hx Psoriasis Surgical History History of left cataract surgery History of right cataract surgery History of prostate biopsy malignant S/P TIPS (transjugular intrahepatic portosystemic shunt) History of esophagogastroduodenoscopy (EGD) Most recent 05/2023 [facility], [place] History of colonoscopy with polypectomy History of tonsillectomy and adenoidectomy History of abdominal paracentesis Multiple, most recent 01/2023 Family History Father , "3/4 liver gone due to drinking" Colorectal cancer, Onset Age: 63 Mother Lung cancer Daughter Cancer cervical and thyroid cancers Ovarian cancer Other No family history of adverse response to anesthesia 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 Smoking Status: Unknown if ever smoked Second Hand Exposure: No; Hx Alcohol Use: No Hx Substance Use: No Preferred Language: Azeri Communication Ability: Impaired Communication Ability Comment: AMS, not answering questions appropriately Visual Impairment: No Limitations Hearing Ability: Normal Direct Support Professional Required: No Beliefs That Will Affect Care: None marital status: Current Living Situation: Spouse Current Living Situation Comment: 1 level single family home 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 Physical Exam Could not be obtained as the encountered was conducted via TeleMed. Results & Data Vital Signs (Past 12 Hours) Vital Signs Temp Pulse Pulse Resp BP BP Pulse Ox 07/08/24 15:39 36.4 C L 53 L 18 108/61 97 07/08/24 14:11 60 07/08/24 11:38 36.4 C L 59 L 16 106/59 L 96 07/08/24 08:25 07/08/24 07:40 36.5 C 60 18 124/63 98 07/08/24 07:07 60 O2 Del Method 07/08/24 15:39 Room Air 07/08/24 14:11 07/08/24 11:38 Room Air 07/08/24 08:25 Room Air 07/08/24 07:40 Room Air 07/08/24 07:07 Laboratory Results Microbiology: 07/05: Urine culture growing Corynebacterium urealyticum Diagnostic Findings CT thorax/abdomen/pelvis on 07/05/2024: 1. No acute traumatic process within the chest, abdomen, or pelvis. 2. Chronic compression deformities again noted from T11 through L2, unchanged. No acute fractures within the thoracic or lumbar spine. 3. Cirrhotic liver with sequela of portal hypertension which is similar to the prior study. 4. There are 2 left hepatic lobe masses are again noted one of which has decreased in size in the interval. 5. Bladder wall thickening with surrounding inflammatory change. This suggests a cystitis. 6. Evidence for acute sigmoid diverticulitis. No perforation or abscess. 7. Cholelithiasis. 8. Bladder calculi again noted.
[2024-07-08] MEDS: metroNIDAZOLE 500 MG TAB PO SCH (21:38)
[2024-07-08] MEDS: CIPROFLOXACIN 500 MG TAB PO SCH (21:39)
[2024-07-09 06:57] LABS: Hematocrit (blood only) 20.9 % (42.0-52.0); Hemoglobin 7.1 g/dl (14.0-18.0); Mean Corpuscular Hemoglobin 31.6 pg (25.0-34.0); Mean Corpuscular Volume 92.9 fL (80.0-100.0); Mean Platelet Volume 13.2 fL (9.4-12.4); Platelet Count 44 K/uL (130-400); RDW Coefficient of Variation 19.3 % (11.5-14.5); RDW Standard Deviation 64.8 fL (36.4-46.3); Red Blood Count 2.25 M/uL (4.70-6.10)
[2024-07-09 07:21] LABS: INR 1.2 (0.9-1.1); Prothrombin Time 12.4 Seconds (9.0-12.0)
[2024-07-09 07:29] LABS: Albumin Globulin Ratio 0.9 (0.9-2); Albumin Level 2.6 gm/dl (3.4-5.0); BUN Creatinine Ratio 25.5 (10-20); Bilirubin,Total 2.4 mg/dl (0.2-1.0); Calcium 7.7 mg/dl (8.6-10.3); Creatinine Clr Calc Pharmacy 46.8 ml/min; Est GFR (African American) 58.5 ml/min; Est GFR (Non-African American) 50.4 ml/min; Globulin 2.8 gm/dl (2.5-4.0); Magnesium 1.8 mg/dl (1.7-2.4); Phosphorus 3.2 mg/dl (2.5-4.9); Potassium 4.2 mmol/L (3.5-5.1); Total Protein 5.4 gm/dl (6.0-8.3)
[2024-07-09 07:32] LABS: Anisocytosis Present; Basophils # (auto) 0.01 K/uL (0.00-0.20); Basophils % (auto) 0.4 %; Eosinophils # (auto) 0.22 K/uL (0.00-0.50); Eosinophils % (auto) 9.2 %; Immature Granulocytes # (auto) 0.03 K/uL (0.01-0.20); Immature Granulocytes % (auto) 1.3 %; Lymphocytes # (auto) 0.53 K/uL (1.20-3.40); Lymphocytes % (auto) 22.1 %; Monocytes # (auto) 0.18 K/uL (0.11-0.59); Monocytes % (auto) 7.5 %; Neutrophils # (auto) 1.43 K/uL (1.40-6.50); Neutrophils % (auto) 59.5 %; Polychromasia 1+; Tear Drop Cells 1+
[2024-07-09] MEDS: LANTUS PER UNIT CHARGE SC SCH (12:44)
--- NOTE | 2024-07-09 12:55 | Hospitalist Progress Note ---
Date of Service July 09, 2024 Assessment & Plan (1) Hepatic encephalopathy: (2) Sigmoid diverticulitis: (3) Acute urinary tract infection: (4) Elevated lactic acid level: (5) Elevated liver enzymes: (6) Pancytopenia: (7) 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: (8) DM type 2 (diabetes mellitus, type 2): Plan Pt is a 74y/o M with PMHx of DM type II [on basal insulin], CKD stage III, dyslipidemia, chronic gout of multiple sites, restrictive lung disease, pulmonary hypertension, gastric antral vascular ectasia, esophageal varices, history of portal vein thrombosis, cirrhosis of liver, GERD, history of liver cell carcinoma, prostate cancer, radiation cystitis, acquired thrombocytopenia, chronic anemia and other problems who presented to the ED via EMS after being found naked outside lying on the ground by his . Hepatic Encephalopathy Patient was initially a trauma alert in the ED after being found lying outside on the ground naked. Full trauma work-up was initiated in the ED and the imaging was rather benign except for the incidental finding of acute sigmoid diverticulitis, cholelithiasis Old findings of T12-L2 chronic compression fractures, cirrhosis, hepatic lobe masses, bladder calculi Patient was afebrile and hemodynamically stable at time of admission. Ammonia level significantly elevated at 167 GI eval and recs noted. Recommended or stated the following: "-- Continue Lactulose - Continue Xifaxan - Treat diverticulitis - Treat UTI - Full infectious work up - Blood cx - Urine cx - Chest imaging - Small ascites on imaging, doubt enough for diagnostic paracentesis - Head CT" Encephalopathy likely in setting of above and acute infections 9see below). Currently resolved. He is currently AOx3. Continue lactulose, ensure 3-4 BM per day Continue rifaximin Continue to monitor Acute Sigmoid Diverticulitis CT abd/pelvis noting "Evidence for acute sigmoid diverticulitis." Per ID Dr Ramos, recommends the following: -cipro 500mg bid -flagyl 500 tid for 14 days as well along with Linezolid (see below). Continue cipro 500mg BID and flagyl 500mg TID (Day 3/14) Acute Urinary Tract Infection UA suggestive of infection urine Cx grew > 100, 000 colonies of Corynebacterium urealyticum CT abd/pelvis suggestive of cystitis changes Infectious Disease consulted, per Dr Jaurez recommended the following: -Continue IV vancomycin for UTI -On discharge, can step down to oral linezolid 600 mg BID to complete a total of 10 days. Continue IV Vancomycin at this time, Day 02/08 Liver Cirrhosis 2/2 FOFANA H/O Esophageal Varices & Gastric Antral Vascular Ectasia Per chart review, appears pt requires paracentesis [id number]. A therapeutic paracentesis was performed on 06/15 with 1.2 L removed and discarded from a pocket of fluid identified in the left lower quadrant. GI consulted, as above. recommended or stated the following: " Low residue diet as tolerated - Continue lactulose - Continue Xifaxan - MELD labs every 6 months - ABD imaging w/ AFP every 6 months - EGD every 1-2 years - No ETOH - No NSAIDs - Avoid hepatotoxin - Low NA diet, less than 2G daily - Less than 2G acetaminophen containing products daily - Defer management of pancreatic lesion to his primary OP GI provider, EUS recommended if not previously completed" Please ensure follow up with GI after discharge Pancreatic Head Lesion Noted on CT abd/pelvis imaging GI and PCP followup Hepatocellular Carcinoma Pancytopenia, chronic Anemia, chronic Pt underwent transarterial bland embolization at [facility] on 06/11. [facility] [Dr. Ramires]. Baseline Hgb ~8 per chart review; Hgb 8.2 on admission. Pt has required frequent blood transfusions in the past. He was also treated multiple times w/ iron infusions. Hb is 6.7 today Transfuse 1 pRBC and monitor to keep >7 Anemia panel unremarkable Patient saw [facility]iative Medicine on 07/02 - Patient was receptive to the option of [facility]. H/O Prostate Cancer & Radiation Cystitis Completed radiation therapy to the prostate on 04/05/21; Pt follows w/ [facility] [Dr. Ramires]. Pt also follows w/ [facility] Urology [Dr. Frank Peraza]. History of radiation cystitis s/p cystourethroscopy with clot evacuation and fulguration. Can continue [employer] finasteride, oxybutynin and solifenacin. Hematuria Pt with episodes of hematuria Hgb downtrending Urology consulted once more after further episode overnight on 07/09 Appreciate recs Continue to monitor H/H, transfuse as needed Diabetes Mellitus Type II [Insulin-Dependent] Holding [employer] diabetic meds; Initiating basal/bolus insulin regimen, BSG checks ACHS. Hgb A1c 8.0 on 05/18/24; Continue to monitor CKD Stage III Creatinine 1.17 on admission Cr has been trending up in the past month per chart review and EPIC Resume home lasix and aldactone H/O Gout: Can continue [employer] allopurinol. Anxiety & Depression: Can continue [employer] duloxetine. Continue to hold mirtazapine for now 2/2 sedating effects. Diet: DMII/HH/low fiber DVT Prophylaxis: SCDs in setting of anemia requiring transfusion Dispo: PT/OT pending for further recs Admission and Anticipated Discharge Date Admission Date: July 05, 2024 Subjective pt was seen sitting comfortably in chair near the bed. AAOx3. Denied acute concerns. Daughter at bedside and updated. Review of Systems Review of Systems: All systems reviewed & are unremarkable except as noted in Subjective Physical Exam Physical Exam: General: Alert, oriented. No acute distress Skin: No noted rashes or bruises Psych: Appropriate mood and affect Neuro: difficulty with movements HEENT: NC/AT CV: RRR Resp: Breath sounds clear bilaterally, no increased effort of breathing Abdomen: Soft, nontender Extremities: No edema in lower extremities bilaterally. Results & Data Results & Data Vital Signs (Past 12 Hours) Vital Signs Temp Pulse Pulse Resp BP BP Pulse Ox 07/09/24 11:32 36.4 C L 58 L 18 105/59 L 99 07/09/24 08:18 36.6 C 59 L 18 116/62 97 07/09/24 05:47 59 L 07/09/24 03:42 37 C 58 L 18 130/71 99 O2 Del Method 07/09/24 11:32 Room Air 07/09/24 08:18 Room Air 07/09/24 05:47 07/09/24 03:42 Room Air
--- NOTE | 2024-07-09 13:16 | Urology Progress Note ---
<Statement entered by Zane Salas MD - 07/10/24 06:36> I have discussed Mr. Hale's case with JEFF Lozano and agree with the above documentation. Since he is voiding spontaneously, would hold off catheterization/CBI for now. With radiation cystitis, there is low yield and return to the OR for cystoscopy and fulguration. Ideally, he can get to his hyperbaric oxygen treatments. Could consider bilateral nephrostomy tube placement for urinary diversion if needed. -Zane Salas MD. Date of Service July 09, 2024 Assessment & Plan (1) Hematuria: Plan 74yo/M with a history of prostate cancer and recurrent hematuria status post radiation admitted with hepatic encephalopathy, acute sigmoid diverticulitis, and UTI. Follow-up for hematuria. CT abdomen pelvis 07/05/24 noted bladder wall thickening with surrounding inflammation suggestive of cystitis, no hydronephrosis. Patient afebrile and hemodynamically stable at present LabsWBC 2.40, creatinine 1.37, hemoglobin 7.1 (received PRBC transfusion 07/07) Urine culture grew Corynebacterium. ID consulted. He is voiding spontaneously. He continues to have hematuria without clot per his report. There is no urine to examine at time of visit. No acute intervention warranted. Patient has ongoing hematuria from radiation cystitis. Unfortunately, fulguration/cauterization typically only provides temporary relief. Ideally he will start hyperbaric oxygen therapy as scheduled on 07/17/2024 per his report. Unfortunately, hyperbaric oxygen treatment is likely the only option other than consideration of urinary diversion with nephrostomy tubes. Continue to monitor ability to void. PVRs can be obtained however unlikely to be accurate due to ascites. Ideally would try to avoid catheter placement as this may worsen his hematuria. However, if he is unable to void for greater than 6 hours may perform CIC or place indwelling Kan catheter. Continue supportive care and management per primary team. Continue antibiotics per ID recommendations/primary team. Patient should follow-up with his primary urologist Dr. Peraza as an outpatient. Urology will sign-off. Please call with any further questions, concerns, or changes in patient's status. Admission and Anticipated Discharge Date Admission Date: July 05, 2024 Subjective Patient seen at bedside today Awake, resting in bed on arrival No acute distress Daughter at bedside Reports he is voiding spontaneously without issue He does continue to have some hematuria but denies passage of any clots Denies difficulty with urination or emptying his bladder He admits to some dysuria Review of Systems Constitutional: as per Subjective / HPI Genitourinary: + as per Subjective / HPI Physical Exam Constitutional: no acute distress Respiratory: no respiratory distress and no labored breathing Neurologic: awake Psychiatric: A+Ox3, euthymic affect Results & Data Vital Signs (Past 12 Hours) Vital Signs Temp Pulse Pulse Resp BP BP Pulse Ox 07/09/24 11:32 36.4 C L 58 L 18 105/59 L 99 07/09/24 08:18 36.6 C 59 L 18 116/62 97 07/09/24 05:47 59 L 07/09/24 03:42 37 C 58 L 18 130/71 99 O2 Del Method 07/09/24 11:32 Room Air 07/09/24 08:18 Room Air 07/09/24 05:47 07/09/24 03:42 Room Air PG Care Time/CCT Total # of Minutes Spent Total Time Spent with Patient: Total time spent is greater than 50% in coordination of care (as documented) at patient's floor/unit and/or counseling patient: Coding Level of Care Code 42480 SUB INP/OBS CARE 2/35MIN Diagnoses Hematuria R31.0 Hematuria type: gross (1) Hematuria Hematuria type: gross Qualified Code(s): R31.0 - Gross hematuria
[2024-07-09 15:08] LABS: Hematocrit (blood only) 22.1 % (42.0-52.0); Hemoglobin 7.2 g/dl (14.0-18.0)
[2024-07-10 06:30] LABS: Basophils # (auto) 0.01 K/uL (0.00-0.20); Basophils % (auto) 0.4 %; Eosinophils # (auto) 0.21 K/uL (0.00-0.50); Eosinophils % (auto) 8.9 %; Hematocrit (blood only) 21.6 % (42.0-52.0); Hemoglobin 7.2 g/dl (14.0-18.0); Immature Granulocytes # (auto) 0.04 K/uL (0.01-0.20); Immature Granulocytes % (auto) 1.7 %; Lymphocytes # (auto) 0.51 K/uL (1.20-3.40); Lymphocytes % (auto) 21.7 %; Mean Corpuscular Hemoglobin 31.3 pg (25.0-34.0); Mean Corpuscular Hgb Conc 33.3 g/dL (32.0-36.0); Mean Corpuscular Volume 93.9 fL (80.0-100.0); Monocytes # (auto) 0.19 K/uL (0.11-0.59); Monocytes % (auto) 8.1 %; Neutrophils # (auto) 1.39 K/uL (1.40-6.50); Neutrophils % (auto) 59.2 %; Platelet Count 63 K/uL (130-400); RDW Coefficient of Variation 19.8 % (11.5-14.5); RDW Standard Deviation 65.4 fL (36.4-46.3); White Blood Count 2.35 K/ul (4.8-10.8)
[2024-07-10 06:46] LABS: Albumin Globulin Ratio 0.9 (0.9-2); Albumin Level 2.6 gm/dl (3.4-5.0); BUN Creatinine Ratio 27.2 (10-20); Calcium 7.7 mg/dl (8.6-10.3); Creatinine Clr Calc Pharmacy 47.6 ml/min; Est GFR (Non-African American) 50.9 ml/min; Globulin 2.9 gm/dl (2.5-4.0); Magnesium 1.6 mg/dl (1.7-2.4); Phosphorus 2.8 mg/dl (2.5-4.9); Potassium 4.2 mmol/L (3.5-5.1); Total Protein 5.5 gm/dl (6.0-8.3)
[2024-07-10 06:52] LABS: Anisocytosis Present; Tear Drop Cells 1+
[2024-07-10 06:56] LABS: INR 1.2 (0.9-1.1); Prothrombin Time 12.6 Seconds (9.0-12.0)
[2024-07-10] MEDS: VANCOMYCIN LEVEL ONE (07:35)
[2024-07-10] MEDS: MAGNESIUM CHLORIDE W/CALCIUM 64MG DELAYED REL TAB PO SCH (08:48)
[2024-07-10] MEDS: MAGNESIUM SULFATE / D5W 1 GM/100 ML BAG IV SCH (09:04)
--- NOTE | 2024-07-10 10:27 | Pharmacy Report ---
Pharmacy PK ABX Note - Date of Service July 10, 2024 - Assessment and Plan Assessment 07/10/24: Today is day 4 of Vancomycin + Cipro + Metronidazole therapies. Renal function improved compared to 3 days ago. Currently on Vancomycin 1250 mg IV q24h. Trough Vancomycin level obtained today prior to dose at 8 AM is 12.1 mcg/ml. Per ID, patient is to complete 14 day course of antibiotics for UTI and diverticulitis. Transition to Zyvox on discharge. 07/08/24: 74 year old M receiving vancomycin, ciprofloxacin, and metronidazole for treatment of complicated UTI and acute diverticulitis. Pertinent microbiologic data includes: urine culture (07/05/24) growing Corynebacterium urealyticum (no sensitivities to follow). Pertinent PMH includes T2DM, CKD, hx of prostate cancer and radiation cystitis, hx liver cell carcinoma, and cirrhosis. Renal function appears to be stable (unsure of baseline). Day # 2 of vancomycin therapy. Plan Vancomycin * Current regimen: 1250 mg IV every 24 hours * Trough level obtained 07/10/24 at 06:09 resulted as 12.1 mcg/mL. This is predicted to achieve target AUC/SAMEER of 400-600 mg/L.hr * Predicted AUC at steady state: 533 mg/L.hr * Continue Vancomycin 1250 mg IV every 24 hours * Will repeat level after around 72 hours Pharmacy will continue to follow and will adjust dose/frequency as necessary. Thank you. Pharmacy has transitioned to AUC monitoring for vancomycin. AUC/SAMEER is the preferred PK/PD target and is associated with decreased risk of nephrotoxicity compared to traditional trough targets.
[2024-07-10 12:05] LABS: Hematocrit (blood only) 21.8 % (42.0-52.0); Hemoglobin 7.3 g/dl (14.0-18.0)
--- NOTE | 2024-07-10 13:27 | Pharmacy Report ---
Pharmacy Glycemic Short Note 2 - Date of Service July 10, 2024 - Glycemic Short BSG Results (Last 24 hours): 07/09/24 07/09/24 07/10/24 17:11 20:14 06:09 Glucose 112 H POC Glucose 100 H 195 H 07/10/24 07/10/24 07:54 11:56 Glucose POC Glucose 123 H 221 H OUTPATIENT ANTIDIABETIC REGIMEN: * Lantus 25 units SC qPM HbA1c: 8% on 05/18/24 (per H&P) ASSESSMENT: 07/10/24: * Patient received 41 units of insulin yesterday; 18 units basal and 23 units bolus. * BSGs yesterday were [phone] mg/dl. Novolog carb ratio was tightened to 8 yesterday. * Fasting BSG today was 123 mg/dl. Basal insulin continued the same. Novolog continued the same also today. * Since pre-lunch BSG trends up above 200 mg/dl, breakfast carb ratio may need tightened. 07/07/24: * Patient was NPO yesterday until dinnertime, clears started at that time * Blood sugars ranging 90-205 mg/dL yesterday with fasting blood sugar of 96 mg/dL * Remains on IV Zosyn for acute diverticulitis * Will likely decrease basal insulin today, no change to Novolog anticipated 07/05/24: * Luis is a 74 yo T2DM admitted with hepatic encephalopathy, diverticulitis, and possible UTI. Patient was found this morning lying outside on the ground by his . Unknown if patient took insulin last evening. * During June 2024 admission, patient received 17-20 units of basal insulin per day with decent glycemic control. * Will utilize weight based Novolog dosing (weight/stress 2) and reduce basal insulin based on past admission usage + NPO status. PLAN FOR INPATIENT GLYCEMIC CONTROL: * Basal insulin * Lantus 18 units SC daily at lunch * Bolus insulin * NovoLog per scale ACHS or Q6hrs while NPO * Goal Range: Low 110 mg/dL - High 140 mg/dL * Correction Factor: 25 mg/dL/unit * Nutritional / Prandial insulin per carb ratio of 1 unit per 8 grams CHO consumed
--- NOTE | 2024-07-10 16:37 | Hospitalist Progress Note ---
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 Hepatic Encephalopathy Patient was initially a trauma alert in the ED after being found lying outside on the ground naked. Full trauma work-up was initiated in the ED and the imaging was rather benign except for the incidental finding of acute sigmoid diverticulitis, cholelithiasis Old findings of T12-L2 chronic compression fractures, cirrhosis, hepatic lobe masses, bladder calculi Patient was afebrile and hemodynamically stable at time of admission. Ammonia level significantly elevated at 167 GI eval and recs noted. Recommended or stated the following: "-- Continue Lactulose - Continue Xifaxan - Treat diverticulitis - Treat UTI - Full infectious work up - Blood cx - Urine cx - Chest imaging - Small ascites on imaging, doubt enough for diagnostic paracentesis - Head CT" Encephalopathy likely in setting of above and acute infections 9see below). Currently resolved. He is currently AOx3. Continue lactulose, ensure 3-4 BM per day Continue rifaximin Continue to monitor Acute Sigmoid Diverticulitis CT abd/pelvis noting "Evidence for acute sigmoid diverticulitis." Per ID Dr Ramos, recommends the following: -cipro 500mg bid -flagyl 500 tid for 14 days as well along with Linezolid (see below). Continue cipro 500mg BID and flagyl 500mg TID (Day 4/14) Acute Urinary Tract Infection UA suggestive of infection urine Cx grew > 100, 000 colonies of Corynebacterium urealyticum CT abd/pelvis suggestive of cystitis changes Infectious Disease consulted, per Dr Juarez recommended the following: -Continue IV vancomycin for UTI -On discharge, can step down to oral linezolid 600 mg BID to complete a total of 10 days. Continue IV Vancomycin at this time, Day 03/11 Liver Cirrhosis 2/2 FOFANA H/O Esophageal Varices & Gastric Antral Vascular Ectasia Per chart review, appears pt requires paracentesis [id number]. A therapeutic paracentesis was performed on 06/15 with 1.2 L removed and discarded from a pocket of fluid identified in the left lower quadrant. GI consulted, as above. recommended or stated the following: " Low residue diet as tolerated - Continue lactulose - Continue Xifaxan - MELD labs every 6 months - ABD imaging w/ AFP every 6 months - EGD every 1-2 years - No ETOH - No NSAIDs - Avoid hepatotoxin - Low NA diet, less than 2G daily - Less than 2G acetaminophen containing products daily - Defer management of pancreatic lesion to his primary OP GI provider, EUS recommended if not previously completed" Please ensure follow up with GI after discharge Pancreatic Head Lesion Noted on CT abd/pelvis imaging GI and PCP followup Hepatocellular Carcinoma Pancytopenia, chronic Anemia, chronic Pt underwent transarterial bland embol[facility] at [facility] on 06[facility]11. [facility]Dr. Ramires]. Baseline Hgb ~8 per chart review; Hgb 8.2 on admission. Pt has required frequent blood transfusions in the past. He was also treated multiple times w/ iron infusions. Hb is 6.7 today Transfuse 1 pRBC and monitor to keep >7 Anemia panel unremarkable Patient saw [facility] on 07/02 - Patient was receptive to the option of [facility]. H/O Prostate Cancer & Radiation Cystitis Completed radiation therapy to the prostate on 04/05/21; [facility]Dr. Ramires]. [facility] [Dr. Frank Peraza]. History of radiation cystitis s/p cystourethroscopy with clot evacuation and fulguration. Can continue [employer] finasteride, oxybutynin and solifenacin. Hematuria Pt with episodes of hematuria Hgb downtrending Urology consulted once more after further episode overnight on 07/09 Appreciate recs Continue to monitor H/H, transfuse as needed Diabetes Mellitus Type II [Insulin-Dependent] Holding [employer] diabetic meds; Initiating basal/bolus insulin regimen, BSG checks ACHS. Hgb A1c 8.0 on 05/18/24; Continue to monitor CKD Stage III Creatinine 1.17 on admission Cr has been trending up in the past month per chart review and EPIC Resume home lasix and aldactone H/O Gout: Can continue [employer] allopurinol. Anxiety & Depression: Can continue [employer] duloxetine. Continue to hold mirtazapine for now 2/2 sedating effects. Diet: DMII/HH/low fiber DVT Prophylaxis: SCDs in setting of anemia requiring transfusion Dispo: Home with home health services Admission and Anticipated Discharge Date Admission Date: July 05, 2024 Subjective pt was seen sitting comfortably in chair near the bed. AAOx3. Denied acute concerns. Anxious for discharge Review of Systems Review of Systems: All systems reviewed & are unremarkable except as noted in Subjective Physical Exam Physical Exam: General: Alert, oriented. No acute distress Skin: No noted rashes or bruises Psych: Appropriate mood and affect Neuro: difficulty with movements HEENT: NC/AT CV: RRR Resp: Breath sounds clear bilaterally, no increased effort of breathing Abdomen:nontender Extremities: No edema in lower extremities bilaterally. Results & Data Results & Data Vital Signs (Past 12 Hours) Vital Signs Temp Pulse Pulse Resp BP Pulse Ox O2 Del Method 07/10/24 15:21 36.7 C 76 20 150/63 H 96 Room Air 07/10/24 12:59 59 L 07/10/24 11:23 36.6 C 62 20 130/57 L 98 Room Air 07/10/24 08:46 36.7 C 62 20 118/62 97 Room Air 07/10/24 05:45 61
[2024-07-11 06:35] LABS: Basophils # (auto) 0.01 K/uL (0.00-0.20); Basophils % (auto) 0.4 %; Eosinophils # (auto) 0.23 K/uL (0.00-0.50); Eosinophils % (auto) 8.8 %; Hematocrit (blood only) 22.6 % (42.0-52.0); Hemoglobin 7.5 g/dl (14.0-18.0); Immature Granulocytes # (auto) 0.08 K/uL (0.01-0.20); Immature Granulocytes % (auto) 3.1 %; Lymphocytes % (auto) 23.1 %; Mean Corpuscular Hemoglobin 31.3 pg (25.0-34.0); Mean Corpuscular Hgb Conc 33.2 g/dL (32.0-36.0); Mean Corpuscular Volume 94.2 fL (80.0-100.0); Mean Platelet Volume 12.1 fL (9.4-12.4); Monocytes # (auto) 0.15 K/uL (0.11-0.59); Monocytes % (auto) 5.8 %; Neutrophils # (auto) 1.53 K/uL (1.40-6.50); Neutrophils % (auto) 58.8 %; Nucleated RBC # (auto) 0.02 K/uL (0.00-0.12); Nucleated RBC % (auto) 0.8 %; Platelet Count 70 K/uL (130-400); RDW Coefficient of Variation 20.2 % (11.5-14.5); RDW Standard Deviation 67.3 fL (36.4-46.3)
[2024-07-11 06:49] LABS: Albumin Globulin Ratio 0.9 (0.9-2); Albumin Level 2.7 gm/dl (3.4-5.0); BUN Creatinine Ratio 26.1 (10-20); Bilirubin,Total 2.1 mg/dl (0.2-1.0); Calcium 7.8 mg/dl (8.6-10.3); Creatinine Clr Calc Pharmacy 46.6 ml/min; Globulin 2.9 gm/dl (2.5-4.0); Magnesium 1.7 mg/dl (1.7-2.4); Phosphorus 2.7 mg/dl (2.5-4.9); Potassium 4.3 mmol/L (3.5-5.1); Total Protein 5.6 gm/dl (6.0-8.3)
[2024-07-11 06:55] LABS: Anisocytosis Present; Polychromasia 1+
[2024-07-11 06:58] LABS: INR 1.2 (0.9-1.1); Prothrombin Time 12.6 Seconds (9.0-12.0)
--- NOTE | 2024-07-11 12:07 | Discharge Summary ---
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 Hepatic Encephalopathy Patient was initially a trauma alert in the ED after being found lying outside on the ground naked. Full trauma work-up was initiated in the ED and the imaging was rather benign except for the incidental finding of acute sigmoid diverticulitis, cholelithiasis Old findings of T12-L2 chronic compression fractures, cirrhosis, hepatic lobe masses, bladder calculi Patient was afebrile and hemodynamically stable at time of admission. Ammonia level significantly elevated at 167 GI eval and recs noted. Recommended or stated the following: "-- Continue Lactulose - Continue Xifaxan - Treat diverticulitis - Treat UTI - Full infectious work up - Blood cx - Urine cx - Chest imaging - Small ascites on imaging, doubt enough for diagnostic paracentesis - Head CT" Encephalopathy likely in setting of above and acute infections (see below). Currently resolved. He is currently AOx3. Continue lactulose, ensure 3-4 BM per day Continue rifaximin Close GI and PCP follow up after discharge. Acute Sigmoid Diverticulitis CT abd/pelvis noting "Evidence for acute sigmoid diverticulitis." Per ID Dr Ramos, recommends the following: -cipro 500mg bid and flagyl 500 tid for 14 days as well along with Linezolid (see below). Continue cipro 500mg BID and flagyl 500mg TID (Day 5/14) on discharge Discharged with 9.5 days worth of cipro and flagyl. PCP followup Acute Urinary Tract Infection UA suggestive of infection urine Cx grew > 100, 000 colonies of Corynebacterium urealyticum CT abd/pelvis suggestive of cystitis changes Infectious Disease consulted, per Dr Juarez recommended the following: -Continue IV vancomycin for UTI -On discharge, can step down to oral linezolid 600 mg BID to complete a total of 10 days. Treated with IV Vancomycin, Day 510 on discharge. Discharged with Linezolid 600mg BID x 5 more days. Liver Cirrhosis 2/2 FOFANA H/O Esophageal Varices & Gastric Antral Vascular Ectasia Per chart review, appears pt requires paracentesis [id number]. A therapeutic paracentesis was performed on 06/15 with 1.2 L removed and discarded from a pocket of fluid identified in the left lower quadrant. GI consulted, as above. recommended or stated the following: "Small ascites on imaging, doubt enough for diagnostic paracentesis" Please ensure follow up with GI after discharge Pancreatic Head Lesion Noted on CT abd/pelvis imaging GI and PCP followup Hepatocellular Carcinoma Pancytopenia, chronic Anemia, chronic Pt underwent transarterial bland embolization at [facility] on 06/11. [facility] [Dr. Ramires]. Baseline Hgb ~8 per chart review; Hgb 8.2 on admission. Pt has required frequent blood transfusions in the past. He was also treated multiple times w/ iron infusions. Hb was 6.7 at one point this admission on 07/07. Transfused 1 pRBC Hgb has remained stable Anemia panel unremarkable Patient saw OR Palliative Medicine on 07/02 - Patient was receptive to the option of [facility] Home. Hgb stable at 7.5 on discharge H/O Prostate Cancer & Radiation Cystitis Completed radiation therapy to the prostate on 04/05/21; Pt follows / [facility] Hematology/Oncology [Dr. Ramires]. Pt also follows / [facility] Urology [Dr. Frank Peraza]. History of radiation cystitis s/p cystourethroscopy with clot evacuation and fulguration. Can continue ACCOUNTING TECHNICIAN finasteride, oxybutynin and solifenacin. Hematuria Pt with episodes of hematuria Hgb downtrending Urology consulted once more after further episode overnight on 07/09 "Patient has ongoing hematuria from radiation cystitis. Unfortunately, fulguration/cauterization typically only provides temporary relief. Ideally he will start hyperbaric oxygen therapy as scheduled on 07/17/2024 per his report. Unfortunately, hyperbaric oxygen treatment is likely the only option other than consideration of urinary diversion with nephrostomy tubes. Continue to monitor H and H and transfuse as needed Diabetes Mellitus Type II [Insulin-Dependent] Held ACCOUNTING TECHNICIAN diabetic meds; basal/bolus insulin regimen, BSG checks ACHS. Hgb A1c 8.0 on 05/18/24; PCP follow up CKD Stage III Creatinine 1.17 on admission Cr has been trending up in the past month per chart review and EPIC Resume home lasix and aldactone PCP follow up H/O Gout: Can continue ACCOUNTING TECHNICIAN allopurinol. Anxiety & Depression: Can continue ACCOUNTING TECHNICIAN duloxetine. Continue to hold mirtazapine for now 2/2 sedating effects. Notes For Next Care Provider Please ensure follow up with Urology for hyperbaric treatment Please ensure follow up with GI for chronic cirrhosis and noted pancreatic head lesion Please continue to monitor H/H and transfuse as needed Medication Changes From Visit Per GI: Continue lactulose, Xifaxan Per ID: ciprofloxacin 500mg BID x 9.5 more days and Flagyl 500mg TID x 9.5 more days for acute diverticulitis Linezolid 600mg BID x 5 more days for corynebacterium UTI Admission HPI Per Admitting Provider Luis Hale is a 74y/o M with PMHx of DM type II [on basal insulin], CKD stage III, dyslipidemia, chronic gout of multiple sites, restrictive lung disease, pulmonary hypertension, gastric antral vascular ectasia, esophageal varices, history of portal vein thrombosis, cirrhosis of liver, GERD, history of liver cell carcinoma, prostate cancer, radiation cystitis, acquired thrombocytopenia, chronic anemia and other problems listed below who presented to the ED via EMS after being found naked outside lying on the ground by his . History obtained from chart review and discussion with ED provider. Patient seen in ED with Dr. Walton. Unable to elicit any history from the patient due to mental status. Was able to get ahold of the patient's son, Alex, who is POA and executor - his phone number is the following: #[phone]. However, the line became disconnected due to connectivity issues and ultimately were were not able to elicit a ton of information from him. He will be in this afternoon around 12 o'clock to discuss the patient's code status and goals of care. Patient was initially a trauma alert in the ED after being found lying outside on the ground naked. Full trauma work-up was initiated in the ED and the imaging was rather benign except for the incidental finding of acute sigmoid diverticulitis. Patient is currently oriented to self only and is rather confused - he believes he is at home. In the ED, patient was afebrile and hemodynamically stable. Ammonia level significantly elevated suggesting hepatic encephalopathy. UA suggestive of UTI too. He was administered oral lactulose and IV Zosyn in the ED. Admission Exam Per Admitting Provider General: Confused, lying comfortably in bed, not in acute distress, on room air HEENT: BRITTANY, MMM Chest: Clear breath sounds bilaterally, no wheezes or crackles CVS: Regular rate and rhythm, normal heart sounds Abdomen: Soft, non tender, not distended, normal bowel sounds Neuro: Awake, alert, oriented to self, confused, answering simple questions, follows basic commands. Extremities: No edema Psych: Calm, cooperative, confused Discharge Exam General: Alert, oriented. No acute distress Skin: No noted rashes or bruises Psych: Appropriate mood and affect Neuro: difficulty with movements HEENT: NC/AT CV: RRR Resp: Breath sounds clear bilaterally, no increased effort of breathing Abdomen:soft, nontender Extremities: No edema in lower extremities bilaterally. Updated Medication List Medication Instructions Recorded Confirmed Type allopurinol 100 mg tablet 200 mg PO QAM 05/16/20 07/05/24 History Lactobacil.acidophilus-Bifido.animalis 1 cap PO QAM 05/17/23 07/05/24 History 5 billion cell sprinkle capsule (Probiotic) ferrous sulfate 325 mg (65 mg 650 mg PO QAM 05/17/23 07/05/24 History iron) tablet (iron) iqcqxqngdlqu-dxn-qrwsn acid-vit 1 tab PO DAILY 05/17/23 07/05/24 History K-lycop 400 mcg-20 mcg-370 mcg tablet (Men's 50 Plus Multivitamin) duloxetine 30 mg capsule,delayed 30 mg PO QAM 02/02/24 07/05/24 History release pantoprazole 40 mg tablet,delayed 40 mg PO AMPM 02/02/24 07/05/24 History release rifaximin 550 mg tablet (Xifaxan) 550 mg PO AMHS 02/02/24 07/05/24 History finasteride 5 mg tablet 5 mg PO QAM 03/20/24 07/05/24 History lactulose 10 gram oral packet 10 g PO BID PRN . 03/20/24 07/05/24 History (Kristalose) mirtazapine 30 mg tablet 30 mg PO HS 03/20/24 07/05/24 History acetylcysteine 600 mg capsule 600 mg PO DAILY 05/03/24 07/05/24 History cholestyramine (with sugar) 4 gram 1 ea PO BID 05/20/24 07/05/24 History powder for susp in a packet insulin glargine 100 unit/mL (3 25 unit subcut QPM 05/20/24 07/05/24 History mL) subcutaneous pen (Lantus Solostar U-100 Insulin) magnesium chloride 64 mg 64 mg PO DAILY 05/20/24 07/05/24 History (magnesium chloride) tablet,delayed release (Mag 64) oxybutynin chloride 5 mg tablet 5 mg PO TID PRN Bladder Spasms 05/20/24 07/05/24 History solifenacin 5 mg tablet 5 mg PO DAILY 05/20/24 07/05/24 History triamcinolone acetonide 0.1 % 1 applic topical DAILY 05/20/24 07/05/24 History topical cream zinc gluconate 50 mg tablet 50 mg PO DAILY ##0 05/20/24 07/05/24 History furosemide 40 mg tablet 40 mg PO QAM #30 tabs 05/30/24 07/05/24 Rx spironolactone 100 mg tablet 100 mg PO QAM #30 tabs 05/30/24 07/05/24 Rx ciprofloxacin HCl 500 mg tablet 500 mg PO BID #19 tabs 07/11/24 Rx lactulose 20 gram/30 mL oral 20 g (30 mL) PO QID #1,500 mL 07/11/24 Rx solution linezolid 600 mg tablet 600 mg PO BID #10 tabs 07/11/24 Rx metronidazole 500 mg tablet 500 mg PO TID #28 tabs 07/11/24 Rx Hospital Stay Data Consultations 07/05/24 09:56 ED Decision to Admit Stat 07/06/24 07:45 Consult Gastroenterology Routine 07/06/24 08:00 Consult Urology Routine 07/08/24 08:51 Consult Infectious Diseases Routine Diagnostic Imagining Performed 07/05/24 07:08 CT cervical spine wo con Stat CT facial bones wo con Stat CT head/brain wo con Stat CT lumbar spine wo con Stat CT thoracic spine wo con Stat 07/05/24 07:11 CT Abd and Pelvis [CT abd pelvis wo con] Stat CT chest diagnostic wo con Stat Cervical Spine CT 07/05/24 07:[address] DOSE: 1495.96 mGy.cm HISTORY: Trauma TECHNIQUE: Multiaxial CT images of the cervical spine were performed and reformatted in the sagittal and coronal plane without the use of contrast. A dose lowering technique was utilized adhering to the principles of ALARA. COMPARISON: Cervical spine CT 06/14/2023. FINDINGS: No fractures. No subluxation. Prevertebral soft tissues and the C1-C2 interval are intact. No pneumothorax. IMPRESSION: No fractures within the cervical spine. ACT 112: Negative or not required by law. Electronically signed by: Abdoul Gonzalez M.D. 07/05/2024 8:[address] 07/05/24 07:[address] DOSE: HISTORY: Trauma TECHNIQUE: Multiaxial CT images of the maxillofacial region were performed and reformatted in the coronal plane without the use of contrast. A dose lowering technique was utilized adhering to the principles of ALARA. COMPARISON: None. FINDINGS: The visualized cervical spine, skull base, pterygoid plates, nasal bones, lamina papyracea, orbital floors, mandible, and zygomatic arches are intact. No fractures. The orbits are unremarkable. A periapical lucency at ADA 14. Multiple dental caries are noted IMPRESSION: No fractures within the maxillofacial region. Periodontal disease as described above. ACT 112: Negative or not required by law. Electronically signed by: Abdoul Gonzalez M.D. 07/05/2024 8:[address] 07/05/24 07:[address] DOSE: HISTORY: Trauma TECHNIQUE: Multiaxial CT images of the head were performed without the use of intravenous contrast. Automated exposure control was utilized for this study. A dose lowering technique was utilized adhering to the principles of ALARA. Comparison: Head CT 09/21/2023. Findings: Mild mucosal thickening within the maxillary sinuses. The mastoid air cells are clear. The calvarium and skull base are intact. There is no mass, hematoma, midline shift, acute infarct. White matter hypodensity is nonspecific but suggestive of microvascular ischemic change. The ventricles and sulci demonstrate mild age-related involutional changes. Impression: No acute intracranial abnormality. ACT 112: Negative or not required by law. Electronically signed by: Abdoul Gonzalez M.D. 07/05/2024 8:[address] 07/05/24 07:08 CT chest diagnostic wo con, CT abd pelvis wo con, CT thoracic spine wo con, CT lumbar spine wo con CT DOSE: 2231.45 mGy.cm HISTORY: trauma TECHNIQUE: Multiaxial CT images of the chest, abdomen, and pelvis were performed without contrast. Multiaxial CT images of the thoracic and lumbar spine were performed without contrast and reformatted in the sagittal and coronal planes. A dose lowering technique was utilized adhering to the principles of ALARA. COMPARISON: Abdomen and pelvis CT 06/13/2024. FINDINGS: Chest CT: No acute fractures within the chest. The central airways are patent. No pneumothorax. There is a punctate calcified granuloma within the left upper lobe. No focal lung consolidations to suggest a pneumonia. No evidence for pulmonary edema. Mild bilateral gynecomastia. Mild calcified plaque within the normal caliber thoracic aorta. There are severe coronary artery calcifications noted. There is a trace pericardial effusion. No pleural effusions. Normal esophagus. No mediastinal hematoma or lymphadenopathy. The heart is borderline enlarged. Thoracic spine CT: Mild chronic compression deformities from T11 through L2, unchanged. No acute fracture or subluxation within the thoracic spine. Paravertebral soft tissues are unremarkable. Abdomen and pelvis CT: No pneumoperitoneum. No pneumatosis. No acute fractures identified. Cirrhotic liver with a TIPS in place. This remains unchanged. The spleen remains enlarged. There is a small amount of ascites which is similar to the prior study. Cholelithiasis. No gallbladder wall thickening. There is a 3.7 cm left hepatic lobe mass on image 42. This is similar to the prior study. The additional left hepatic lobe mass appears to have decreased in size and measures 16 mm. No new hepatic masses identified. The adrenal glands are unremarkable. No hydronephrosis. No retroperitoneal hematoma or lymphadenopathy. A 1.7 cm peripherally calcified cystic lesion again noted at the pancreatic head. This remains unchanged. 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 Calcified plaque within the normal caliber abdominal aorta. Bladder wall thickening with adjacent flat stranding. A few bladder stones are noted the prostate gland remains enlarged. Multiple colonic diverticula. There is an inflamed diverticulum within the proximal sigmoid colon on image 233 consistent with an acute diverticulitis. No perforation or abscess at this time. No dilated loops of bowel to suggest an obstruction. Normal appendix. Lumbar spine CT: Mild chronic compression deformities from T11 through L2, unchanged. No acute fracture or subluxation within the lumbar spine. Paravertebral soft tissues are unremarkable. IMPRESSION: 1. No acute traumatic process within the chest, abdomen, or pelvis. 2. Chronic compression deformities again noted from T11 through L2, unchanged. No acute fractures within the thoracic or lumbar spine. 3. Cirrhotic liver with sequela of portal hypertension which is similar to the prior study. 4. There are 2 left hepatic lobe masses are again noted one of which has decreased in size in the interval. 5. Bladder wall thickening with surrounding inflammatory change. This suggests a cystitis. 6. Evidence for acute sigmoid diverticulitis. No perforation or abscess. 7. Cholelithiasis. 8. Bladder calculi again noted. 9. Additional findings as described above. ACT 112: Negative or not required by law. Electronically signed by: Abdoul Gonzalez M.D. 07/05/2024 9:[address] 07/05/24 07:08 CT chest diagnostic wo con, CT abd pelvis wo con, CT thoracic spine wo con, CT lumbar spine wo con CT DOSE: 2231.45 mGy.cm HISTORY: trauma TECHNIQUE: Multiaxial CT images of the chest, abdomen, and pelvis were performed without contrast. Multiaxial CT images of the thoracic and lumbar spine were performed without contrast and reformatted in the sagittal and coronal planes. A dose lowering technique was utilized adhering to the principles of ALARA. COMPARISON: Abdomen and pelvis CT 06/13/2024. FINDINGS: Chest CT: No acute fractures within the chest. The central airways are patent. No pneumothorax. There is a punctate calcified granuloma within the left upper lobe. No focal lung consolidations to suggest a pneumonia. No evidence for pulmonary edema. Mild bilateral gynecomastia. Mild calcified plaque within the normal caliber thoracic aorta. There are severe coronary artery calcifications noted. There is a trace pericardial effusion. No pleural effusions. Normal esophagus. No mediastinal hematoma or lymphadenopathy. The heart is borderline enlarged. Thoracic spine CT: Mild chronic compression deformities from T11 through L2, unchanged. No acute fracture or subluxation within the thoracic spine. Paravertebral soft tissues are unremarkable. Abdomen and pelvis CT: No pneumoperitoneum. No pneumatosis. No acute fractures identified. Cirrhotic liver with a TIPS in place. This remains unchanged. The spleen remains enlarged. There is a small amount of ascites which is similar to the prior study. Cholelithiasis. No gallbladder wall thickening. There is a 3.7 cm left hepatic lobe mass on image 42. This is similar to the prior study. The additional left hepatic lobe mass appears to have decreased in size and measures 16 mm. No new hepatic masses identified. The adrenal glands are unremarkable. No hydronephrosis. No retroperitoneal hematoma or lymphadenopathy. A 1.7 cm peripherally calcified cystic lesion again noted at the pancreatic head. This remains unchanged. 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 Calcified plaque within the normal caliber abdominal aorta. Bladder wall thickening with adjacent flat stranding. A few bladder stones are noted the prostate gland remains enlarged. Multiple colonic diverticula. There is an inflamed divertic ulum within the proximal sigmoid colon on image 233 consistent with an acute diverticulitis. No perforation or abscess at this time. No dilated loops of bowel to suggest an obstruction. Normal appendix. Lumbar spine CT: Mild chronic compression deformities from T11 through L2, unchanged. No acute fracture or subluxation within the lumbar spine. Paravertebral soft tissues are unremarkable. IMPRESSION: 1. No acute traumatic process within the chest, abdomen, or pelvis. 2. Chronic compression deformities again noted from T11 through L2, unchanged. No acute fractures within the thoracic or lumbar spine. 3. Cirrhotic liver with sequela of portal hypertension which is similar to the prior study. 4. There are 2 left hepatic lobe masses are again noted one of which has decreased in size in the interval. 5. Bladder wall thickening with surrounding inflammatory change. This suggests a cystitis. 6. Evidence for acute sigmoid diverticulitis. No perforation or abscess. 7. Cholelithiasis. 8. Bladder calculi again noted. 9. Additional findings as described above. ACT 112: Negative or not required by law. Electronically signed by: Abdoul Gonzalez M.D. 07/05/2024 9:39 AM Abdomen/Pelvis CT 07/05/24 07:11 CT chest diagnostic wo con, CT abd pelvis wo con, CT thoracic spine wo con, CT lumbar spine wo con CT DOSE: 2231.45 mGy.cm HISTORY: trauma TECHNIQUE: Multiaxial CT images of the chest, abdomen, and pelvis were performed without contrast. Multiaxial CT images of the thoracic and lumbar spine were performed without contrast and reformatted in the sagittal and coronal planes. A dose lowering technique was utilized adhering to the principles of ALARA. COMPARISON: Abdomen and pelvis CT 06/13/2024. FINDINGS: Chest CT: No acute fractures within the chest. The central airways are patent. No pneumothorax. There is a punctate calcified granuloma within the left upper lobe. No focal lung consolidations to suggest a pneumonia. No evidence for pulmonary edema. Mild bilateral gynecomastia. Mild calcified plaque within the normal caliber thoracic aorta. There are severe coronary artery calcifications noted. There is a trace pericardial effusion. No pleural effusions. Normal esophagus. No mediastinal hematoma or lymphadenopathy. The heart is borderline enlarged. Thoracic spine CT: Mild chronic compression deformities from T11 through L2, unchanged. No acute fracture or subluxation within the thoracic spine. Paravertebral soft tissues are unremarkable. Abdomen and pelvis CT: No pneumoperitoneum. No pneumatosis. No acute fractures identified. Cirrhotic liver with a TIPS in place. This remains unchanged. The spleen remains enlarged. There is a small amount of ascites which is similar to the prior study. Cholelithiasis. No gallbladder wall thickening. There is a 3.7 cm left hepatic lobe mass on image 42. This is similar to the prior study. The additional left hepatic lobe mass appears to have decreased in size and measures 16 mm. No new hepatic masses identified. The adrenal glands are unremarkable. No hydronephrosis. No retroperitoneal hematoma or lymphadenopathy. A 1.7 cm peripherally calcified cystic lesion again noted at the pancreatic head. This remains unchanged. 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 Calcified plaque within the normal caliber abdominal aorta. Bladder wall thickening with adjacent flat stranding. A few bladder stones are noted the prostate gland remains enlarged. Multiple colonic diverticula. There is an inflamed diverticulum within the proximal sigmoid colon on image 233 consistent with an acute diverticulitis. No perforation or abscess at this time. No dilated loops of bowel to suggest an obstruction. Normal appendix. Lumbar spine CT: Mild chronic compression deformities from T11 through L2, unchanged. No acute fracture or subluxation within the lumbar spine. Paravertebral soft tissues are unremarkable. IMPRESSION: 1. No acute traumatic process within the chest, abdomen, or pelvis. 2. Chronic compression deformities again noted from T11 through L2, unchanged. No acute fractures within the thoracic or lumbar spine. 3. Cirrhotic liver with sequela of portal hypertension which is similar to the prior study. 4. There are 2 left hepatic lobe masses are again noted one of which has decreased in size in the interval. 5. Bladder wall thickening with surrounding inflammatory change. This suggests a cystitis. 6. Evidence for acute sigmoid diverticulitis. No perforation or abscess. 7. Cholelithiasis. 8. Bladder calculi again noted. 9. Additional findings as described above. ACT 112: Negative or not required by law. Electronically signed by: Abdoul Gonzalez M.D. 07/05/2024 9:[address] 07/05/24 07:11 CT chest diagnostic wo con, CT abd pelvis wo con, CT thoracic spine wo con, CT lumbar spine wo con CT DOSE: 2231.45 mGy.cm HISTORY: trauma TECHNIQUE: Multiaxial CT images of the chest, abdomen, and pelvis were performed without contrast. Multiaxial CT images of the thoracic and lumbar spine were performed without contrast and reformatted in the sagittal and coronal planes. A dose lowering technique was utilized adhering to the principles of ALARA. COMPARISON: Abdomen and pelvis CT 06/13/2024. FINDINGS: Chest CT: No acute fractures within the chest. The central airways are patent. No pneumothorax. There is a punctate calcified granuloma within the left upper lobe. No focal lung consolidations to suggest a pneumonia. No evidence for pulmonary edema. Mild bilateral gynecomastia. Mild calcified plaque within the normal caliber thoracic aorta. There are severe coronary artery calcifications noted. There is a trace pericardial effusion. No pleural effusions. Normal esophagus. No mediastinal hematoma or lymphadenopathy. The heart is borderline enlarged. Thoracic spine CT: Mild chronic compression deformities from T11 through L2, unchanged. No acute fracture or subluxation within the thoracic spine. Paravertebral soft tissues are unremarkable. Abdomen and pelvis CT: No pneumoperitoneum. No pneumatosis. No acute fractures identified. Cirrhotic liver with a TIPS in place. This remains unchanged. The spleen remains enlarged. There is a small amount of ascites which is similar to the prior study. Cholelithiasis. No gallbladder wall thickening. There is a 3.7 cm left hepatic lobe mass on image 42. This is similar to the prior study. The additional left hepatic lobe mass appears to have decreased in size and measures 16 mm. No new hepatic masses identified. The adrenal glands are unremarkable. No hydronephrosis. No retroperitoneal hematoma or lymphadenopathy. A 1.7 cm peripherally calcified cystic lesion again noted at the pancreatic head. This remains unchanged. 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 Calcified plaque within the normal caliber abdominal aorta. Bladder wall thickening with adjacent flat stranding. A few bladder stones are noted the prostate gland remains enlarged. Multiple colonic diverticula. There is an inflamed diverticulum within the proximal sigmoid colon on image 233 consistent with an acute diverticulitis. No perforation or abscess at this time. No dilated loops of bowel to suggest an obstruction. Normal appendix. Lumbar spine CT: Mild chronic compression deformities from T11 through L2, unchanged. No acute fracture or subluxation within the lumbar spine. Paravertebral soft tissues are unremarkable. IMPRESSION: 1. No acute traumatic process within the chest, abdomen, or pelvis. 2. Chronic compression deformities again noted from T11 through L2, unchanged. No acute fractures within the thoracic or lumbar spine. 3. Cirrhotic liver with sequela of portal hypertension which is similar to the prior study. 4. There are 2 left hepatic lobe masses are again noted one of which has decreased in size in the interval. 5. Bladder wall thickening with surrounding inflammatory change. This suggests a cystitis. 6. Evidence for acute sigmoid diverticulitis. No perforation or abscess. 7. Cholelithiasis. 8. Bladder calculi again noted. 9. Additional findings as described above. ACT 112: Negative or not required by law. Electronically signed by: Abdoul Gonzalez M.D. 07/05/2024 9:39 AM Discharge Instructions Given to Patient (Per Discharging Provider) Mr. Hale, You are being discharged home with home health services. Please continue with your home medications as prescribed to help prevent hepatic encephalopathy. Continue with the renewed lactulose daily, Xifaxan. You were diagnosed with a urinary tract infection that infectious disease recommends outpatient treatment with the medication Linezolid 600mg twice a day for 5 more days. You were also diagnosed with acute diverticulitis for which you are being treated with the medications ciprofloxacin and metronidazole. We increased your magnesium dose to twice a day. Please continue followup with [facility] as you discussed with Palliative Care and continue with your hyperbaric treatments for the blood in your urine. Please take the medications as prescribed. Please keep close follow up with your primary care provider and gastroenterology after discharge. Please do not hesitate to come back to the emergency room if your symptoms worsen or return. It was a pleasure taking care of you while you were here. Total Time Total Time Spent Total Time Spent (In Minutes): 65
[2024-07-11 15:21] VITALS: RESP 20; TEMP 97.7; O2SAT 97
[2024-07-11 16:02] VITALS: BP 130/71; PULSE 73
[2024-07-11] MEDS ORDERED: LANTUS PER UNIT CHARGE SC SCH (16:30)
== END 2024-07-11 16:43 | disposition home health service (06) | DRG 442 ==
LOC: ED 06:39 → SUATTDRO 11:11 → EDINP 11:11 → 2N 12:43

== ENCOUNTER 2024-08-04 05:19 | Inpatient (IN) ==
--- OUTSIDE RECORDS SUMMARY | 2024-08-04 05:29 | External Medical Summary | Summary of Care ---
Author Name Unknown Organization [facility] Address [address] [place] [place] [place] [address] Phone [phone] Care Team Providers Care Condominium Association Manager Name Role Phone VangieKristen shahid Caryn SANDOVAL Primary Care Provider [phone] Reason for Visit * Reason Onset Date Comments Advice 04/30/2024 Question for MTM Encounter Details Date Type Department Care Team (Late st Contact Info) Description 04/30/2024 Telephone General Internal Medicine [facility] [address] [facility] [place] [id number] Francisco Cisse MD [address] [place] [address] Advice (Question for MTM) Allergies No known active allergiesdocumented as of this encounter (statuses as of 07/30/2024) Medications Medication Sig Dispensed Refills Start Date [...] the evening. 60 Tablet 5 09/02/2023 Active Allopurinol 100 MG Oral Tablet [...] Additional Information Patient not taking.Reported on 06/05/2024 documented as of this encounter (statuses as of 07/30/2024) Active Problems Problem Noted Date Diagnosed Date [...] as of this encounter (statuses as of 07/30/2024) Resolved Problems Problem Noted Date Diagnosed Date [...] as of this encounter (statuses as of 07/30/2024) Immunizations Name Administration Dates Next Due COVID-19 mRNA, LNP-s, No Pre serve, 2-Dose Series ([employer]) 03/08/2021,02/15/2021 HepA Inact/HepB Recomb>=18yrs old 12/04/2019,04/2019,05/20/2019 11/19/2019 [...] lent, No Preserve, IM 09/01/2019,08/27/2016,10/25/2015 Seasonal Influenza, Trivalen t, (IIV3), with Preserv, (Fluzone) 09/13/2014,08/10/2013,10/07/2012,01/2011 Seasonal Influenza, Trivalen t, Adjuvanted, 65+ YRS, PF, (Fluad) 09/15/2021 TDAP (age 10 and older)(Boostrix) 09/28/2022 [...] encounter Miscellaneous Notes * Telephone Encounter - Marcelo Greenfield OSA - 04/30/2024 10:58 AM EDT Reason for patient's call: Question Caller was transferred to [facility] at the clinic. documented in this encounter Plan of Treatment Upcoming Encounters Date Type Department Care Team (Late st Contact Info) Description 08/06/2024 7:15 AM EDT Laboratory Lab [facility] [address] [place] [address] [facility] [address] [place] [address] 08/11/2024 7:00 AM EDT Laboratory [facility] [address] [place] [address] [facility] [address] [place], [place] [address] 08/18/2024 7:00 AM EDT Laboratory [facility] [address] [place] [address] [facility] [address] [place] [address] 08/25/2024 7:00 AM EDT Laboratory [facility] [address] [place] [address] [facility] [address] [place] [address] 09/01/2024 7:00 AM EDT Laboratory [facility] [address] [place], [place] [address] [facility] [address] [place], [place] [address] 09/08/2024 7:00 AM EDT Laboratory [facility] [address] [place] [address] [facility] [address] [place], [place] [address] 09/11/2024 3:00 PM EDT Imaging Radiology [address], [place] [address] [facility] [place] [address] 09/15/2024 7:00 AM EDT Laboratory [facility] [address] [place] [address] [facility] [address] [place] [address] 09/22/2024 7:00 AM EDT Laboratory [facility] [address] [place], [place] [address] [facility] [address] [place], [place] [address] 09/29/2024 7:00 AM EDT Laboratory [facility] [address] [place], [place] [address] [facility] [address] [place], [place] [address] 10/06/2024 7:00 AM EST Laboratory [facility] [address] [place], [place] [address] [facility] [address] [place], [place] [address] 10/06/2024 3:30 PM EST Office Visit Hematology/Oncology [facility] [place] [address] [facility] [place] [phone] Ayaka Tatum CRNP [address] [place] [address] [place] [address] 10/13/2024 7:00 AM EST Laboratory [facility] [address] [facility], [place] [address] [facility] [address] [facility] [place], [place] [address] 10/14/2024 2:00 PM EST Office Visit [facility], [facility] [address] Jordan [facility] [address] [facility] [address] 10/20/2024 7:00 AM EST Laboratory [facility] [address] [employer] [place], [place] [address] [facility] [address] [facility], [place] [address] 10/27/2024 7:00 AM EST Laboratory [facility] [address] [facility], [place] [address] [facility] [address] [place] [address] 12/03/2024 1:30 PM EST Office Visit Urology Lynnette Fitzpatrick [address] [place] [address] Frank Peraza MD 27 [place] [address] 01/26/2025 3:15 PM EST Office Visit Urology, [facility] [address] [facility] [place] [address] Frank Peraza MD 27 [place] [address] 02/11/2025 2:15 PM EDT Office Visit Ophthalmology, [facility] [address] [facility] [place] [address] Cody Gonzalez, DO [address] [facility] [place] [phone] Scheduled Procedures Name Priority Associated Diagnoses Date/Ti me COLONOSCOPY FLEXIBLE PROXIMAL DIAGNOSTIC Recall History of colonic polyps Portal hypertensive gastropathy (HCC) ESOPHAGOGASTRODUODENOSCOPY ( EGD), FLEXIBLE, TRANSORAL, DIAGNOSTIC Recall History of colonic polyps Portal hypertensive gastropathy (HCC) Health Maintenance Due Date Last Done Comments Cologuard 1995 Fecal Occult Blood Test 05/08/2015 05/08/2014 Adult Wellness Visit 03/07/2019 03/07/2018 Depression Screening 05/03/2022 05/03/2021 COVID-19 Vaccine ( season) 2023 10/18/2023, 03/08/2021, 02/15/2021 Influenza Vaccine (FLU shot) (#1) 2024 10/11/2023, 09/15/2021, 09/15/2021, Additional history exists Colonoscopy 08/09/2024 08/09/2023, 1206/2022, 11/07/2022, Additional history exists Colorectal Cancer Screening 08/09/2024 Diabetic Eye Exam 08/19/2024 01/17/2023, , 01/17/2023, Additional history exists Postponed from 01/17/2024 (Other) HbA1c 12/31/2024 06/30/2024, 05/0 06/2024, 11/27/2023, Additional history exists GFR 01/14/2025 07/14/2024, 07/3 , 06/11/2024, Additional history exists Albumin/Creatinine Ratio 05/19/2025 024, 07/12/2023, 10/01/2022, Additional history exists CKD PHOS USE SMARTSET 55106 05/19/2025 06/1 07/2024, 05/08/2024, 04/07/2024, Additional history exists Diabetic Foot Exam 05/19/2025 05/19/2024, 0 03/06/2023, 01/03/2022, Additional history exists CKD HGB USE SMARTSET 24230 07/28/202507/28, 07/28/2024, 07/21/2024, Additional history exists Sigmoidoscopy 04/12/2027 04/12/2022 Lipid Panel 04/07/2029 04/07/2024, 01/03, 11/20/2021, Additional history exists DTap/Tdap Vaccines (3 - Td or Tdap) 09/28/2032 [...] this encounter Medical Devices Implanted Type Area Field Tax Auditor Device Identifier Shelf Expiration Date Model / Serial / Lot Clareon Iol Aspheric Hydrophobic Acrylic Iol Implanted:Qty: 1 on 04/23/2023 by Cody Gonzalez DO at OR [facility] Lens Left: Eye 11/12/2025 [id number] / [id number] / Viatorr Tips Endoprosthesis 8-10 Mm X 8cm / 2cm Implanted:Qty: 1 on 10/07/2020 by Go Alvarado MD at [facility] Right: Abdomen 03/03/2023 [id number] / / [id number] Description:Viatorr TIPS End oprosthesis 8-10 mm x 8cm / 2cm, Manufactored by [employer] Syr Pf 2ml Embospheres 100-300 - [id number] Implanted:Qty: 1 on 04/18/2021 by Kevin Lim DO at OR [facility] Left: Abdomen [employer] [id number] 11/25/2023 S220GH / / [id number] Lipiodol Injection - [id number] Implanted:Qty: 1 on 03/28/2022 at [facility] [employer] 03/01/2023 [id number] 01-2 / / [id number] Syr Pf 2ml Embospheres 100-300 - [id number] Implanted:Qty: 1 on 03/28/2022 at [facility] [employer] [id number] 08/31/2024 S220GH / / [id number] -[id number] Clareon Iol Aspheric Hydrophobic Acrylic Iol Implanted:Qty: 1 on 04/02/2023 by Cody Gonzalez DO at OR [facility] Right: Eye [id number] 11/12/2025 CNA0T0 / [id number] / Syr Pf 2ml Embospheres 100-300 - [id number] Implanted:Qty: 1 on 06/11/2024 at [facility] [employer] [id number] 01/02/2027 S220GH / / [id number] -[id number] Cath Diag Cobra 2 [id number] - [id number] Implanted:Qty: 1 on 06/11/2024 at [facility] [employer] [id number] 10/06/2026 [id number] / / [id number] documented as of this encounter Advance Directives Documents on File Type Date Recorded Patient Enchilada Maker Expl anation Advance Directives and Living Will 12/11/2022 ADVANCE DIRECTIVE / LIVING WILL LIVING WILL Power of Sign Hanger 12/11/2022 POWER OF A TTORNEY * Full [...] Discussed due to patient's condition Care Teams Condominium Association Manager Relationship Specialty Start Date End Date Kristen Vences DO [address] [place] [address] PCP - General Family Medicine 05/19/24 documented as of this encounter
--- OUTSIDE RECORDS SUMMARY | 2024-08-04 05:29 | External Medical Summary ---
Author Name Unknown Address Unknown Organization K01:[facility] [place] [address] [facility] [address] Laboratory Report Ordering Provider Test Date Status CHELSEY BISWAS 07/28/2024 09:31:00 Final Observation Date Value Abnormality Reference (Units ) Status WBC, Total 07/28/2024 09:31:00 1.65 Below low normal 4. 00-10.80 (K/uL) Final RBC 07/28/2024 09:31:00 2.57 4.50-5.25 (M/uL) Final Hemoglobin 07/28/2024 09:31:00 8.7 Below low normal 14 .0-16.8 (g/dL) Final HCT 07/28/2024 09:31:00 27.1 Below low normal 40. 0-48.4 (%) Final MCV 07/28/2024 09:31:00 105.4 82.0-99.5 (fL) Final MCH 07/28/2024 09:31:00 33.9 27.0-34.0 (pg) Final MCHC 07/28/2024 09:31:00 32.1 32.0-36.0 (g/dL) Final RDW 07/28/2024 09:31:00 19.0 11.5-15.5 (%) Final Platelets 07/28/2024 09:31:00 45 Below low normal 140 -400 (K/uL) Final MPV 07/28/2024 09:31:00 Final No result - abnormal platele t distribution. Nucleated erythrocytes/100 l eukocytes [Ratio] in Blood by Automated count 07/28/2024 09:31:00 0 <=0 (/100 WBCs) Final Performing Location [facility]ORY [facility] [place] - [facility] [place] [address]
--- OUTSIDE RECORDS SUMMARY | 2024-08-04 05:29 | External Medical Summary ---
Author Name Unknown Address Unknown Organization K01:[facility] [facility] - [address] [place] [place] [address] Laboratory Report Ordering Provider Test Date Status CHELSEY BISWAS 07/28/2024 09:31:00 Final Observation Date Value Abnormality Reference (Units ) Status SYNC LEUKOCYTES IN BLOOD BY AUTOMATED COUNT 07/28/2024 09:31:00 1.65 Below low normal 4.00-10.80 (K/uL) Final Segs 07/28/2024 09:31:00 52.2 40.0-75.0 (%) Final Lymphs % 07/28/2024 09:31:00 24.8 18.0-42.0 (%) Final Monos 07/28/2024 09:31:00 9.7 1.0-11.0 (%) Final Eosinophils 07/28/2024 09:31:00 11.5 Above high normal 0.0-6.0 (%) Final Basos 07/28/2024 09:31:00 0.6 0.0-2.0 (%) Final Immature Granulocyte, Percent 07/28/2024 09:31:00 1.2 0.0-2.0 (%) Final Absolute Segs 07/28/2024 09:31:00 0.86 Below low normal 1.80-7.70 (K/uL) Final Lymphs, absolute 07/28/2024 09:31:00 0.41 Below low normal 1.00-4.80 (K/ul) Final Monos, Abs 07/28/2024 09:31:00 0.16 0.00-1.10 (K/uL) Final Eos, Abs 07/28/2024 09:31:00 0.19 0.00-0.70 (K/uL) Final Basos, Abs 07/28/2024 09:31:00 0.01 0.00-0.20 (K/uL) Final Immature Granulocytes, Number 07/28/2024 09:31:00 0.02 0.00-0.20 (K/uL) Final Performing Location LAB[facility]ORY [facility] [place] - [facility] [address] [facility] [address]
--- OUTSIDE RECORDS SUMMARY | 2024-08-04 05:29 | External Medical Summary | Summary of Care ---
Author Name Unknown Organization [facility] Address [address] [place] [address] Phone [phone] Care Team Providers Care Field Artillery Basic Name Role Phone VangieKristen Caryn SANDOVAL Primary Care Provider [phone] Reason for Referral * Social Care (Within 10 days (routine)) - Authorized Specialty Diagnoses / Procedures Referred By Chacho fleming Referred To Contact Agricultural Education Professor Diagnoses Liver cell carcinoma (HCC) Ivana Moore MD [address] [place] [address] [place] [address] Referral ID Status Reason Start Date Expiration Date Visits Requested Visits Authorized [id number] Authorized Specialty Services Required 07/22/2024 999 999 Question Answer Referral Priority Within 10 days (routine) Where should this appointment be scheduled? [facility] Role Revenue Cycle Consultant Referring Reason: Financial assistance, Arrange Home Health Comments Is patient being transitioned from [facility] to Complex Case Management? No He is frail, not yet ready for hospice and was declined home health. Needs in home aides. Can you try coordinating w [facility] he says the book says they do home health. Or call and discuss hospice? 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 (HCC) Esophageal varices without bleeding, unspecified esophageal varices type (HCC) Prostate cancer (HCC) Kristen Vences DO [address] [place] [address] Referral ID Status Reason Start Date Expiration Date Visits Requested Visits Authorized [id number] Authorized Specialty Services Required 07/15/2024 999 [id number] Encounter Details Date Type Department Care Team (Late st Contact Info) Description 07/22/2024 10:30 AM EDT Office Visit Palliative Medicine [facility] [address] [place] [place] [address] Ivana Moore MD [address] [place] [id number] Liver cell carcinoma (HCC)*; Palliative care encounter; Esophageal varices without bleeding, unspecified esophageal varices type (HCC) Allergies No known active allergiesdocumented as of this encounter (statuses as of 07/22/2024) Medications Medication Sig Dispensed Refills Start Date [...] Additional Information Patient not taking.Reported on 06/05/2024 Finasteride 5 MG Oral Tablet (Proscar) TAKE 1 TABLET BY MOUTH IN THE MORNING 90 Tablet 1 07/15/2024 Active Spironolactone 100 MG Oral Tablet (Aldactone) Take 1 Tablet by mouth in the morning. 90 Tablet 3 07/20/2024 Active documented as of this encounter (statuses as of 07/22/2024) Active Problems Problem Noted Date Diagnosed Date [...] as of this encounter (statuses as of 07/22/2024) Resolved Problems Problem Noted Date Diagnosed Date [...] as of this encounter (statuses as of 07/22/2024) Immunizations Name Administration Dates Next Due COVID-19 mRNA, LNP-s, No Pre serve, 2-Dose Series (Worlds) 03/08/2021,02/15/2021 HepA Inact/HepB Recomb>=18yrs old 12/04/2019,04/2019,05/20/2019 11/19/2019 PPD 06/18/2017, 3,01/09/2012,06/2011 Pneumococcal Conjugate Vacc, 13 Valent (Prevnar) 05/01/2017 Pneumococcal Polysaccharide PPV23 (Pneumovax) 08/28/2022,10/25/2015,07/14/2012 Season Influenza, Quad, PF, Adjuvanted, 65+ Yrs, IM (FLUAD) 10/07/2020(Deferred: Patient Refused - pt says he already had his shot last month at [facility] [...] Sign Reading Time Taken Comments Blood Pressure 122/61 07/22/2024 10:42 AM EDT Pulse 73 07/22/2024 10:42 AM EDT Temperature 36.2 C (97.2 F) 07/22/2024 10:42 AM E DT Respiratory Rate - - Oxygen Saturation 98% 07/22/2024 10:42 AM EDT Inhaled Oxygen Concentration - - Weight 77.2 kg (170 lb 3.2 oz) 07/22/2024 10:42 AM EDT Height - - Body Mass Index 24.42 06/05/2024 10:44 AM EDT documented in this [...] as of this encounter Progress Notes * Ivana Moore MD - 07/22/2024 10:30 AM EDT Palliative Medicine Outpatient Progress Note [facility] Palliative Medicine Outreach [address] [place] [address] Name: Luis Hale Date: 07/22/2024 HPI: Luis Hale is a 74 year old male with cirrhosis seen in follow-up for goals of care and symptom management. Pt was seen by our clinic from 01/2022 to 07/2022 and was not able to come into visitsso follow up was left PRN. Per PCP notes, pt has been admitted to [facility] recently with hepatic encephalopathy, had a UTI and was found outside naked. Knows he is no longer ont he transplant list. Overall has been doing OK, knows he had prostate cancer, then some bleeding in urine, had a mendoza catheter which is now removed. Is not going onto hospice currently, did not meet w/them. Reports is not doing well, reports they cannot afford to go to assisted living. Has called Aging office, and called [facility] but they do not take his insurance. Saw [facility] in the [place]. Son has living will - says it would be upto his son. Kids check in on him various days. Pt is driving. Daughter is local Looking at getting hyperbaric oxygen chamber 3h/day for 12 weeks Palliative symptoms: Pain: No Nausea/Vomiting: No Appetite: OK Constipation: Sometimes too loose, needs to take Lactulose when home Confusion: Seems clear today, knows he was confused before when was not taking Lactulose. Examination: BP 122/61 (BP Site: Left Arm, BP Position: Sitting, BP Cuff Size: Regular) | Pulse 73 | Temp 36.2 C (97.2 F) (Tympanic) | Wt 77.2 kg (170 lb 3.2 oz) | SpO2 98% | BMI 24.42 kg/m | BSA 1.95 m Constitutional: no acute distress, chronically ill, pale HENT: normocephalic, atraumatic. Eyes: anicteric, sclera and conjunctiva normal. Neck: no stridor Chest: normal respiratory effort Abdominal: nondistended Extremities: no edema Data Review: External notes reviewed: - Reviewed notes from [facility] Dr Masterson, pt was previously on transplant list but removed due to frailty. Has had lots of issues with volume status, confusion, etc. - Reviewed notes from [facility] Dr Rashid, 07/06, Lab / Imaging Results: Hb 8.5, low on 07/21, had a transfusion last week Discussion with other team members: I discussed patient with PCP Decision-making Capacity: Does Patient have Decisional Capacity? y Does Patient have a Healthcare Agent? Y, son Advanced Care Planning (see ACP Tab): AD in EMR: Yes POLST in EMR: No ASSESSMENT/PLAN: Luis Hale is a 74 year old male seen in follow-up for goals of care and pain and symptom management. Frailty - Is aware he cannot get liver transplant - Was also told "if kidneys go, I would pass in 3 weeks" Cirrhosis - Follows with GI Complex social dynamics - Met with [employer] and has booklets from them but needs to find what he wants Goals of care - Unsure - he says it would be up to his son - If on life support, would NOT want to be kept alive by machines Follow up in 6 weeks, with kids present. . They are able to do video visits if with kids. Next visit with me. I spent a total of 31 minutes on the date of service in preparation, delivery, and documentation ofthe care provided to Luis Hale excluding any time spent in the performance of separately billed services. Ivana Moore MD [facility] Palliative Medicine [phone] documented in this encounter Nursing Notes * Kriss Bear MED ASSIST - 07/22/2024 10:42 AM EDT Patient identifed by name and birthdate Do you have any concerns about pain management for today's visit? No Living Will or Advance Directive for Health Care as noted on the problem list. [facility] is a way you can talk to your provider on line through e-mail. Would you like to sign up? I can activate it for you? ALREADY ACTIVE Filed Vitals: 07/22/24 1042 BP: 122/61 Pulse: 73 Temp: 36.2 C (97.2 F) TempSrc: Tympanic SpO2: 98% Weight: 77.2 kg (170 lb 3.2 oz) Patient was instructed to not get up [...] Care Team (Late st Contact Info) Description 07/24/2024 1:40 PM EDT Office Visit NephrologyGeorge [address] [place] [address] Franki Herbert MD [address] [place] [address] 07/27/2024 2:00 PM EDT Office Visit Gastroenterology, [facility] [address] [place] [address] Lamar Tatum CRNP [address] [place], [place] [address] 07/28/2024 7:00 AM EDT Laboratory Lab Mobile Phlebotomy [facility] [address] [place] [address] [facility] [address] [place] [address] 08/04/2024 7:00 AM EDT Laboratory Lab Mobile Phlebotomy [facility] [address] [place] [address] [facility] [address] [place] [address] 08/11/2024 7:00 AM EDT Laboratory Lab Mobile Phlebotomy [facility] [address] [place] [address] [facility] [address] [place] [address] 08/18/2024 7:00 AM EDT Laboratory Lab Mobile Phlebotomy [facility] [address] [place] [address] [facility] [address] [place] [address] 08/25/2024 7:00 AM EDT Laboratory Lab Mobile Phlebotomy [facility] [address] [place] [address] [facility] [address] [place] [address] 09/01/2024 7:00 AM EDT Laboratory Lab Mobile Phlebotomy [facility] [address] [place] [address] [facility] [address] [place] [address] 09/08/2024 7:00 AM EDT Laboratory Lab Mobile Phlebotomy [facility] [address] [place] [address] [facility] [address] [place] [address] 09/11/2024 3:00 PM EDT Imaging Radiology [address], [place] [address] [place] [address] 09/15/2024 7:00 AM EDT Laboratory Lab Mobile Phlebotomy [facility] [address] [place] [address] [address] [facility] [address] [address] 09/22/2024 7:00 AM EDT Laboratory Lab Mobile Phlebotomy [facility] [address] [address] [facility] [address], [place] [address] 09/29/2024 7:00 AM EDT Laboratory Lab Mobile Phlebotomy [facility] [address] [address] [facility] [address] [place], [place] [address] 10/06/2024 7:00 AM EST Laboratory Lab Mobile Phlebotomy [facility] [address] [address] [facility] [address], [place] [address] 10/06/2024 3:30 PM EST Office Visit Hematology/Oncology [facility] Avilez [address], [place] [id number] Ayaka Tatum CRNP [address] [place] [address] 10/13/2024 7:00 AM EST Laboratory Lab Mobile Phlebotomy [facility] [address] [place] [address] [facility] [address] [facility] [place], [place] [address] 10/14/2024 2:00 PM EST Office Visit Pulmonary Medicine, [facility] [address] [facility] [place] [address] Jordan Stanley MD [address] [facility] [address] 10/20/2024 7:00 AM EST Laboratory Lab Mobile Phlebotomy [facility] [address] [facility] [place], [place] [address] [facility] [address] [place] [address] 10/27/2024 7:00 AM EST Laboratory Lab Mobile Phlebotomy [facility] [address] [facility] [place], [place] [address] [facility] [address] [place] [address] 12/03/2024 1:30 PM EST Office Visit Urology Lynnette Fitzpatrick [address] [place] [address] [place] [address] Frank Peraza MD [address] [address] 01/26/2025 3:15 PM EST Office Visit Urology, [facility] [address] [facility] [place] [address] Frank Peraza MD [address] [place] [address] 02/11/2025 2:15 PM EDT Office Visit Ophthalmology, [facility] [address] [place] [address] Cody Gonzalez, [address] [place] [address] Scheduled Procedures Name Priority Associated Diagnoses Date/Ti me COLONOSCOPY FLEXIBLE PROXIMAL DIAGNOSTIC Recall History of colonic polyps Portal hypertensive gastropathy (HCC) ESOPHAGOGASTRODUODENOSCOPY ( EGD), FLEXIBLE, TRANSORAL, DIAGNOSTIC Recall History of colonic polyps Portal hypertensive gastropathy (HCC) Scheduled Referrals Name Type Priority Associated Diagnoses Orde r Schedule POPULATION HEALTH REFERRAL OP Referral Within 10 days (routine) Liver cell carcinoma (HCC) Ordered: 07/22/2024 Health Maintenance Due Date Last Done Comments [...] , 06/11/2024, Additional history exists Albumin/Creatinine Ratio 05/19/202505/19/2 024, 07/12/2023, 10/01/2022, Additional history exists CKD PHOS USE SMARTSET 78299 05/19/2025 06/1 07/2024, 05/08/2024, 04/07/2024, Additional history exists Diabetic Foot Exam 05/19/2025 05/19/2024, 0 03/06/2023, 01/03/2022, Additional history exists CKD HGB USE SMARTSET 94547 07/21/202507/21, 07/14/2024, 07/14/2024, Additional history exists Sigmoidoscopy 04/12/2027 04/12/2022 Lipid [...] this encounter Medical Devices Implanted Type Area Mitigation Supervisor Device Identifier Shelf Expiration Date Model / Serial / Lot Clareon Iol Aspheric Hydrophobic Acrylic Iol Implanted:Qty: 1 on 04/23/2023 by Cody Gonzalez DO at [facility] Lens Left: Eye 11/12/2025 CNA0T0 / [id number] / Viatorr Tips Endoprosthesis 8-10 Mm X 8cm / 2cm Implanted:Qty: 1 on 10/07/2020 by Go Alvarado MD at [facility] Right: Abdomen 03/03/2023 [id number] / / [id number] Description:Viatorr TIPS End oprosthesis 8-10 mm x 8cm / 2cm, Manufactored by [employer] Syr Pf 2ml Embospheres 100-300 - [id number] Implanted:Qty: 1 on 04/18/2021 by Kevin Lim DO at [facility] Left: Abdomen [employer] [id number] 11/25/2023 S220GH / / [id number] Lipiodol Injection - [id number] Implanted:Qty: 1 on 03/28/2022 at [facility] [employer] 03/01/2023 [id number] 01-2 / / [id number] Syr Pf 2ml Embospheres 100-300 - [id number] Implanted:Qty: 1 on 03/28/2022 at [facility] [employer] [id number] 08/31/2024 S220GH / / [id number] -[id number] Clareon Iol Aspheric Hydrophobic Acrylic Iol Implanted:Qty: 1 on 04/02/2023 by Cody Gonzalez DO at [facility] Right: Eye [id number] 11/12/2025 CNA0T0 / [id number] / Syr Pf 2ml Embospheres 100-300 - [id number] Implanted:Qty: 1 on 06/11/2024 at [facility] [employer] [id number] 01/02/2027 S220GH / / [id number] Cath Diag Cobra 2 4hol36cd - [id number] Implanted:Qty: 1 on 06/11/2024 at [facility] [employer] [id number] 10/06/2026 [id number] / / [id number] documented as of this encounter Visit Diagnoses Diagnosis Liver cell carcinoma (HCC)- Primary Malignant neoplasm of liver, primary Palliative care encounter Encounter for palliative care Esophageal varices without bleeding, unspecified esophageal varices type (HCC) documented in this encounter Advance Directives Documents on File Type Date Recorded Patient Fx Artist Expl anation Advance Directives and Living Will 12/11/2022 ADVANCE DIRECTIVE / LIVING WILL LIVING WILL Power of Operating Room Coordinator 12/11/2022 POWER OF A TTORNEY * [...] Question Answer Comments Discussion of Advance Direct rioc occurred with: Not Discussed due to patient's condition Care Teams Field Artillery Basic Relationship Specialty Start Date End Date Kristen Vences DO [address] [place] [address] PCP - General Family Medicine 05/19/24 documented as of this encounter
--- OUTSIDE RECORDS SUMMARY | 2024-08-04 05:30 | External Medical Summary ---
Author Name Unknown Address Unknown Organization K[facility] [address] [facility] [address] [facility] Report Ordering Provider Test Date Status CHELSEY BISWAS 07/21/2024 11:36:00 Final Observation Date Value Abnormality Reference (Units ) Status WBC, Total 07/21/2024 11:36:00 1.83 Below low normal 4. 00-10.80 (K/uL) Final RBC 07/21/2024 11:36:00 2.57 4.50-5.25 (M/uL) Final Hemoglobin 07/21/2024 11:36:00 8.5 Below low normal 14 .0-16.8 (g/dL) Final HCT 07/21/2024 11:36:00 26.8 Below low normal 40. 0-48.4 (%) Final MCV 07/21/2024 11:36:00 104.3 82.0-99.5 (fL) Final MCH 07/21/2024 11:36:00 33.1 27.0-34.0 (pg) Final MCHC 07/21/2024 11:36:00 31.7 32.0-36.0 (g/dL) Final RDW 07/21/2024 11:36:00 21.1 11.5-15.5 (%) Final Platelets 07/21/2024 11:36:00 47 Below low normal 140 -400 (K/uL) Final MPV 07/21/2024 11:36:00 Final No result - abnormal platele t distribution. Nucleated erythrocytes/100 l eukocytes [Ratio] in Blood by Automated count 07/21/2024 11:36:00 0 <=0 (/100 WBCs) Final Performing Location [facility] [address] [facility] [address]
--- OUTSIDE RECORDS SUMMARY | 2024-08-04 05:30 | External Medical Summary | Summary of Care ---
Author Name Unknown Organization [facility] Address [address] [facility] [place] [address] Phone [phone] Care Team Providers Care Application Coordinator Name Role Phone Kristen Vences DO Primary Care Provider [phone] Reason for Referral * Evaluate & Treat - Unlimited Visits (Within 10 days (routine)) - Authorized Specialty Diagnoses / Procedures Referred By Chacho fleming Referred To Contact Urology Diagnoses Radiation proctitis Prostate cancer (HCC) Kristen Vences DO [address] [place] [address] Referral ID Status Reason Start Date Expiration Date Visits Requested Visits Authorized [id number] Authorized Specialty Services Required 07/20/2024 999 999 Question Answer Referral Priority Within 10 days (routine) Where should this appointment be scheduled? [facility] What is the patient being referred for? Other Conditions Comments Hospital follow up hyperbaric treatment as per [facility] * Evaluate & Treat - Unlimited Visits (Within 3 days (urgent)) - Authorized Specialty Diagnoses / Procedures Referred By Chacho fleming Referred To Contact Gastroenterology Diagnoses Acute encephalopathy Acute diverticulitis Hepatic cirrhosis, unspecified hepatic cirrhosis type, unspecified whether ascites present (HCC) Pancytopenia (HCC) Kristen Vences DO [address] [place] [address] Referral ID Status Reason Start Date Expiration Date Visits Requested Visits Authorized [id number] Authorized Specialty Services Required 07/20/2024 999 999 Question Answer Referral Priority Within 3 days (urgent) Where should this appointment be scheduled? [facility] For what condition is the patient being referred? All Gastro Conditions Comments Is to have hospital follow up appt Reason for Visit * Reason Onset Date Comments Hospital Follow-Up Pt here for h ospital f/u apt, Hospital Follow-Up 07/20/2024 Encounter Details Date Type Department Care Team (Late st Contact Info) Description 07/20/2024 4:00 PM EDT Office Visit [facility] [address] [place] [address] Kristen Vences DO [address] [place] [address] Hospital discharge follow-up*; Acute encephalopathy; Acute diverticulitis; Hepatic cirrhosis, unspecified hepatic cirrhosis type, unspecified whether ascites present (HCC); Pancreatic lesion; Radiation proctitis; Pancytopenia (HCC); Prostate cancer (HCC) Allergies No known active allergiesdocumented as of this encounter (statuses as of 07/20/2024) Medications Medication Sig Dispensed Refills Start Date [...] as of this encounter (statuses as of 07/20/2024) Active Problems Problem Noted Date Diagnosed Date [...] as of this encounter (statuses as of 07/20/2024) Resolved Problems Problem Noted Date Diagnosed Date [...] as of this encounter (statuses as of 07/20/2024) Immunizations Name Administration Dates Next Due COVID-19 mRNA, LNP-s, No Pre serve, 2-Dose Series (Kyield) 03/08/2021,02/15/2021 HepA Inact/HepB Recomb>=18yrs old 12/04/2019,04/2019,05/20/2019 11/19/2019 PPD 06/18/2017, 3,01/09/2012,06/2011 Pneumococcal Conjugate Vacc, 13 Valent (Prevnar) 05/01/2017 Pneumococcal Polysaccharide PPV23 (Pneumovax) 08/28/2022,10/25/2015,07/14/2012 Season Influenza, Quad, PF, Adjuvanted, 65+ Yrs, IM (FLUAD) 10/07/2020(Deferred: Patient Refused - pt says he already had his shot last month at [facility] [employer] [employer] [...] Sign Reading Time Taken Comments Blood Pressure 118/40 07/20/2024 3:50 PM EDT Pulse 64 07/20/2024 3:50 PM EDT Temperature 36.7 C (98 F) 07/20/2024 3:50 PM EDT Respiratory Rate 16 07/20/2024 3:50 PM EDT Oxygen Saturation - - Inhaled Oxygen Concentration - - Weight 75.8 kg (167 lb) 07/20/2024 3:50 PM EDT Height - - Body Mass Index 23.96 06/05/2024 10:44 AM EDT documented in this [...] this encounter Progress Notes * Kristen Vences, DO - 07/20/2024 3:50 PM EDT Subjective: Luis Hale is a 74 year old male. Chief Complaint Patient presents with Hospital Follow-Up Pt here for hospital f/u apt, There are no exam notes on file for this visit. HPI: This is a 74 year old male with PMHx as below presents with hospital follow up Admitted 07/05 Discharged 07/11 Dx - hepatic encephalopathy, diverticulitis, UTI -was found outside naked Encephalopathy likely 2/2 acute infections is to have GI follow up Palliative med appt 07/22 Urology appt needed hyperbaric tx - HD appt Follow labs - pancytopenia AAA involved Daughter present - looking into assisted living Health Maintenance Due Topic Date Due Adult Wellness Visit 03/07/2019 Depression Screening 05/03/2022 COVID-19 Vaccine ( season) 2023 Colorectal Cancer Screening 08/09/2024 Patient Active Problem [...] Current Outpatient Medications Medication Sig Dispense Refill [facility] OnDemandTouch Verio In Vitro Strip (Glucose Blood) Use [...] 65 MG Oral Tablet Take by mouth. FreeStyle Wang 2 Sensor [...] Tablet in the evening. 60 Tablet 5 Allopurinol 100 MG Oral Tablet (Zyloprim) [...] mouth in the morning. 30 Tablet 6 Finasteride 5 MG Oral Tablet (Proscar) TAKE 1 TABLET BY MOUTH IN THE MORNING 90 Tablet 1 Spironolactone 100 MG Oral Tablet (Aldactone) Take 1 Tablet by mouth in the morning. 90 Tablet 3 Zinc 50 MG Oral Capsule Take 1 Capsule by mouth in the morning. N-Acetyl Cysteine 600 MG Oral Tablet (Acetylcysteine (Nutrient)) Take by mouth. Cholestyramine 4 GM Oral [...] performed by Salvador Lopez MD at ENDOSCOPY [facility], adenomatous polyps repeat colonoscopy in 3 [...] performed by Cody Gonzalez DO at OR [facility] CATARACT SURGERY,COMPLEX Left 04/23/2023 LEFT EXTRACAPSULAR CATARACT REMOVAL COMPLEX WITH IOL performed by Cody Gonzalez DO at OR [facility] COLONOSCOPY 08/27/2005 [place]/hemorrhoids non internal COLONOSCOPY, DIAGNOSTIC (RECTUM) 04/16/2013 COLONOSCOPY FLEXIBLE PROXIMAL DIAGNOSTIC performed by Salvador Lopez MD at ENDOSCOPY [facility], adenomatous polyps repeat colonoscopy in 3 years COLONOSCOPY, DIAGNOSTIC (RECTUM) 05/03/2016 adenomatous polyps, diverticulosis, repeat 5 yrs/COLONOSCOPY FLEXIBLE PROXIMAL DIAGNOSTIC performedby Salvador Lopez MD at [facility] COLONOSCOPY, DIAGNOSTIC (RECTUM) 07/19/2020 adenomatous & hyperplastic polyps, diverticulosis, repeat 3 yrs / [facility] COLONOSCOPY, DIAGNOSTIC (RECTUM) 11/30/2021 mild XRT proctitis, diverticulosis / COLONOSCOPY FLEXIBLE PROXIMAL DIAGNOSTIC performed by Barbara March DO at [facility] COLONOSCOPY, DIAGNOSTIC (RECTUM) 02/01/2022 Mild XRT proctitis / COLONOSCOPY FLEXIBLE PROXIMAL DIAGNOSTIC performed by Barbara March DO at [facility] COLONOSCOPY, DIAGNOSTIC (RECTUM) N/A 11/07/2022 poor prep/diverticulosis sigmoid colon/rectal angioectasias consistent with radiation proctopathy/[place]oscopy/[place] COLONOSCOPY, DIAGNOSTIC (RECTUM) N/A 08/09/2023 poor prep/moderate diverticulosis/hemorrhoids/biopsies show adenomatous and hyperplastic polyps/recall 1 years/Colonoscopy/[place] ABDOMEN W IV AND W ORAL CONTRAST 01/10/2010 CYSTOSCOPY, REMOVAL OF CLOTS N/A 05/09/2024 CYSTOURETHROSCOPY WITH IRRIGATION AND EVACUATION OF CLOTS performed by Luis Whitehead MDa OR [facility] CYSTOSCOPY/TREAT LGE BLADDER TUMOR N/A 05/09/2024 CYSTOURETHROSCOPY WITH FULGURATION LARGE BLADDER TUMOR performed by Luis Whitehead MD atOR [facility] CYSTOSCOPY/TREAT MED BLADDER TUMOR N/A 01/30/2024 CYSTOURETHROSCOPY WITH FULGURATION MEDIUM BLADDER TUMOR performed by Frank Peraza MD at OR [facility] EGD, FLEXIBLE, DIAGNOSTIC 07/22/2014 GE varices oozing blood, gastric polyp/ESOPHAGOGASTRODUODENOSCOPY (EGD), FLEXIBLE, TRANSORAL, DIAGNOSTIC performed by Juaquin Arrington MD at [facility] EGD, FLEXIBLE, DIAGNOSTIC 07/23/2014 ESOPHAGOGASTRODUODENOSCOPY (EGD), FLEXIBLE, TRANSORAL, DIAGNOSTIC performed by Sophie Merino MD at ENDOSCOPY [facility] EGD, FLEXIBLE, DIAGNOSTIC 06/02/2019 eso & gastric varices, gastric polyps/ESOPHAGOGASTRODUODENOSCOPY (EGD), FLEXIBLE, TRANSORAL, DIAGNOSTIC performed by Salvador Lopez MD at [facility] EGD, FLEXIBLE, DIAGNOSTIC 03/25/2020 portal hypertensive gastropathy, esophageal varices / INPT [facility] EGD, FLEXIBLE, DIAGNOSTIC 07/19/2020 eso varices, portal hypertensive gastropathy, repeat 3 mo / [facility] EGD, FLEXIBLE, DIAGNOSTIC 10/25/2020 Portal hypertensive gastropathy, eso varices / [facility] EGD, FLEXIBLE, DIAGNOSTIC 08/202222 Grade I esophageal varices / [facility] EGD, FLEXIBLE, DIAGNOSTIC N/A 09/11/2022 grade II esophageal varices/gastric antral vascular ectasia, treated with APC/repeat 3 months/EGD/[place] EGD, FLEXIBLE, DIAGNOSTIC N/A 11/07/2022 grade III esophageal varices, banded/gastric antral vascular ectasia/repeat 2 months/EGD/[place] EGD, FLEXIBLE, DIAGNOSTIC N/A 02/01/2023 [facility]< egd. / single G2 varix, banded and varices eradicated / no specimens collected / egd in 1 to 2 months / EGD, FLEXIBLE, DIAGNOSTIC N/A 08/09/2023 portal hypertensive gastropathy/repeat 1 year/EGD/[facility] EGD, FLEXIBLE, DIAGNOSTIC 05/22/2023 GAVE, repeat 4-6 wks / [facility] IR ARTERIAL EMBOLIZATION 06/11/2024 IR CANCER THERASPHERE EMBOLIZATION 03/28/2022 IR EMBOLIZATION Left 04/18/2021 IMAGING SUPERVISION & INTERPRETATION TRANSCATHETER THERAPY, EMBOLIZATION performed by Kevin Lim DO at OR [facility] IR EMBOLIZATION ARTERIAL NON HEMMORHAGE Left 02/21/2022 EMBOLIZATION ARTERIAL; SUPERVISION & INTERPRETATION performed by Kevin Lim DO at OR [facility] IR EMBOLIZATION ARTERIAL NON HEMMORHAGE Left 06/05/2022 EMBOLIZATION ARTERIAL; SUPERVISION & INTERPRETATION performed by Kevin Lim DO at OR [facility] IR VENOUS TIPS 10/07/2020 REMOVAL OF TONSILS, UNDER AGE 12 age 6-7 Tonsils Removal,<12 Y/O SIGMOIDOSCOPY, DIAGNOSTIC 04/12/2022 radiation proctitis, diverticulosis / [facility] TIPS, REVISION N/A 01/24/2021 REVISION TRANSVENOUS INTRAHEPATIC PORTOSYSTEMIC SHUNT performed by Kevin Lim DO at OR [facility] TIPS, REVISION Right 10/19/2022 REVISION TRANSVENOUS INTRAHEPATIC PORTOSYSTEMIC SHUNT performed by Howie Valdovinos MD at OR [facility] TIPS, REVISION Right 02/20/2023 REVISION TRANSVENOUS INTRAHEPATIC PORTOSYSTEMIC SHUNT performed by Kevin Lim DO at OR [facility] Review of patient's allergies indicates: No [...] Brother Arik Other (Other) Brother Arik Agent [place] exposure Neurological Disorder Daughter Joan epilepsy No [...] No Self-Exams Not Asked 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, 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 2 cats [...] orders placed or performed in visit on 07/14/24 COMPREHENSIVE METABOLIC PANEL Result Value Ref Range BUN 30 (H) 6 - 20 mg/dL Creatinine 1.3 (H) 0.6 - 1.2 mg/dL Estimated Glomerular Filtration Rate 58 (L) >=60 mL/min Sodium 139 135 - 146 mmol/L Potassium 4.5 3.5 - 5.1 mmol/L Chloride 112 (H) 98 - 107 mmol/L CO2 18 (L) 22 - 32 mmol/L Anion Gap 9 7 - 15 mmol/L Glucose 267 (H) 70 - 120 mg/dL Albumin 2.9 (L) 3.8 - 5.0 g/dL AST 41 10 - 50 U/L Alkaline Phosphatase 160 (H) 35 - 130 U/L Bilirubin, Total 2.1 (H) <=1.2 mg/dL Calcium 7.9 (L) 8.4 - 10.2 mg/dL Protein 5.6 (L) 6.0 - 8.3 g/dL ALT 23 10 - 50 U/L FERRITIN Result Value Ref Range Ferritin 359 30 - 400 ng/mL IRON SCREEN, INCLUDING TIBC Result Value Ref Range Iron 125 45 - 176 ug/dL Iron Binding Capacity 125 (L) 250 - 425 ug/dL Transferrin Saturation Percent 100 (H) 15 - 55 % CBC Result Value Ref Range WBC 2.36 (L) 4.00 - 10.80 K/uL RBC 2.39 4.50 - 5.25 M/uL HGB 7.9 (L) 14.0 - 16.8 g/dL HCT 24.1 (L) 40.0 - 48.4 % MCV 100.8 82.0 - 99.5 fL MCH 33.1 27.0 - 34.0 pg MCHC 32.8 32.0 - 36.0 g/dL RDW 22.6 11.5 - 15.5 % PLT 72 (L) 140 - 400 K/uL MPV 12.6 6.6 - 11.1 fL nRBCs 1 (H) <=0 /100 WBCs DIFFERENTIAL, AUTOMATED Result Value Ref Range WBC 2.36 (L) 4.00 - 10.80 K/uL Neutrophils % 61.9 40.0 - 75.0 % Lymphocytes % 20.8 18.0 - 42.0 % Monocytes % 5.5 1.0 - 11.0 % Eosinophils % 8.9 (H) 0.0 - 6.0 % Basophils % 0.8 0.0 - 2.0 % Immature Granulocytes % 2.1 (H) 0.0 - 2.0 % Absolute Neutrophils 1.46 (L) 1.80 - 7.70 K/uL Absolute Lymphocytes 0.49 (L) 1.00 - 4.80 K/ul Absolute Monocytes 0.13 0.00 - 1.10 K/uL Absolute Eosinophils 0.21 0.00 - 0.70 K/uL Absolute Basophils 0.02 0.00 - 0.20 K/uL Absolute Immature Granulocytes 0.05 0.00 - 0.20 K/uL *Note: Due to a large number of results and/or encounters for the requested time period, some results have not been displayed. A complete set of results can be found in Results Review. OBJECTIVE: Physical Exam: There were no vitals taken for this visit. General: alert, healthy, and no distress Heart: regular rate & rhythm Lungs: lungs clear to auscultation Hospital discharge follow-up (Primary) - DISCH MED RECON CUR MED LIS Acute encephalopathy - DISCH MED RECON CUR MED LIS - ADULT GASTROENTEROLOGY REFERRAL OP Acute diverticulitis - DISCH MED RECON CUR MED LIS - ADULT GASTROENTEROLOGY REFERRAL OP Hepatic cirrhosis, unspecified hepatic cirrhosis type, unspecified whether ascites present (HCC) - DISCH MED RECON CUR MED LIS - ADULT GASTROENTEROLOGY REFERRAL OP Pancreatic lesion - DISCH MED RECON CUR MED LIS Radiation proctitis - DISCH MED RECON CUR MED LIS - ADULT/PEDS UROLOGY REFERRAL OP Pancytopenia (HCC) - DISCH MED RECON CUR MED LIS - ADULT GASTROENTEROLOGY REFERRAL OP Prostate cancer (HCC) - DISCH MED RECON CUR MED LIS - ADULT/PEDS UROLOGY REFERRAL OP Kristen Vences DO documented in this encounter Plan of Treatment Upcoming Encounters Date Type Department Care Team (Late st Contact Info) Description 07/21/2024 7:00 AM EDT Laboratory Lab Mobile Phlebotomy [facility] [address] [employer] [address] [place] [address] [facility], [facility] Mobile Home Draw [address] [place] [address] 07/22/2024 10:30 AM EDT Office Visit Palliative Medicine [facility] [address] [place] [address] Ivana Moore MD [address] [place] [address] [place] [address] 07/24/2024 1:40 PM EDT Office Visit Nephrology, George Blankenship [address] [place] [address] Franki Herbert MD [address] [place] [address] 07/27/2024 2:00 PM EDT Office Visit G[facility]enterology, [facility] [place] [address] Lamar Tatum CRNP [address] [place] [address] 07/28/2024 7:00 AM EDT Laboratory Lab Mobile Phlebotomy [facility] [address] [place] [address] M[facility], [facility] Draw [address] [place] [address] 08/04/2024 7:00 AM EDT Laboratory Lab Mobile Phlebotomy [facility] [address] [place] [address] [facility], [facility] Draw [address] [place], [place] [address] 08/11/2024 7:00 AM EDT Laboratory Lab Mobile Phlebotomy [facility] [address] [place] [address] [facility], [facility] Draw [address] [place], [place] [address] 08/18/2024 7:00 AM EDT Laboratory Lab Mobile Phlebotomy [facility] [address] [place] [address] [address] M[facility], [facility] Draw [address] [place], [place] [address] 08/25/2024 7:00 AM EDT Laboratory Lab Mobile Phlebotomy [facility] [address] [place] [address] [address] [facility], [facility] Draw [address] [place] [address] 09/01/2024 7:00 AM EDT Laboratory Lab Mobile Phlebotomy [facility] [address] [place], [place] [address] M[facility], [facility] Draw [address] [place], [place] [address] 09/08/2024 7:00 AM EDT Laboratory Lab Mobile Phlebotomy [facility] [address] [place], [place] [address] M[facility], G[facility] Draw [address] [place], [place] [address] 09/11/2024 3:00 PM EDT Imaging Radiology [address], [address] [address] 09/15/2024 7:00 AM EDT Laboratory Lab Mobile Phlebotomy [facility] [address] [place], [place] [address] M[facility], [facility] Draw [address] [place], [place] [address] 09/22/2024 7:00 AM EDT Laboratory Lab Mobile Phlebotomy [facility] [address] [place], [place] [address] Mv[facility], Gml [facility] Draw [address] [place], [place] [address] 09/29/2024 7:00 AM EDT Laboratory Lab Mobile Phlebotomy [facility] [address] [place], [place] [address] M[facility], G[facility] Draw [address] [place] [address] 10/06/2024 7:00 AM EST Laboratory Lab Mobile Phlebotomy [facility] [address] [place], [place] [address] [facility], G[facility] Draw [address] [place], [place] [address] 10/06/2024 3:30 PM EST [facility] [address] [place], [place] [address] Ayaka Tatum, JEFF [address] [facility] [place] [address] 10/13/2024 7:00 AM EST Laboratory Lab Mobile Phlebotomy [facility] [address] [facility] [place] [address] Mvmg, Gml Mobile Home Draw [address] [facility], [place] [address] 10/14/2024 2:00 PM EST Office Visit Pulmonary Medicine, [facility] [address] [address] Jordan Stanley MD [address] [place] [address] 10/20/2024 7:00 AM EST Laboratory Lab Mobile Phlebotomy [facility] [address] [place] [address] [facility], [place] [address] Mvmg, Gml Mobile Home Draw [address] [facility] [place] [address] 10/27/2024 7:00 AM EST Laboratory Lab Mobile Phlebotomy [facility] [address] [facility] [place], [place] [address] Mvmg, Gml Mobile Home Draw [address] [facility] [place], [place] [address] 12/03/2024 1:30 PM EST Office Visit Urology Lynnette Fitzpatrick [address] [place] [address] [place] [address] Frank Peraza MD [address] [place] [address] 01/26/2025 3:15 PM EST Office Visit Urology, [facility] [address] [facility] [place] [address] Frank Peraza MD [address] [place] [address] 02/11/2025 2:15 PM EDT Office Visit Ophthalmology, [facility] [address] [facility] [place] [address] Cody Gonzalez, DO [address] [place] [address] Scheduled Procedures Name Priority Associated Diagnoses Date/Ti me COLONOSCOPY FLEXIBLE PROXIMAL DIAGNOSTIC Recall History of colonic polyps Portal hypertensive gastropathy (HCC) ESOPHAGOGASTRODUODENOSCOPY ( EGD), FLEXIBLE, TRANSORAL, DIAGNOSTIC Recall History of colonic polyps Portal hypertensive gastropathy (HCC) Scheduled Referrals Name Type Priority Associated Diagnoses Order Schedule ADULT GASTROENTEROLOGY REFERRAL OP Referral Within 3 days (urgent) Acute encephalopathy Acute diverticulitis Hepatic cirrhosis, unspecified hepatic cirrhosis type, unspecified whether ascites present (HCC) Pancytopenia (HCC) Ordered: 07/20/2024 ADULT/PEDS UROLOGY REFERRAL OP Referral Within 10 days (routine) Radiation proctitis Prostate cancer (HCC) Ordered: 07/20/2024 Health Maintenance Due Date Last Done Comments [...] Postponed from 01/17/2024 (Other) HbA1c 12/31/2024 06/30/2024, 0506/2024, 11/27/2023, Additional history exists GFR 01/14/2025 07/14/2024, 06/03, 06/11/2024, Additional history exists Albumin/Creatinine Ratio 05/19/2025 024, 07/12/2023, 10/01/2022, Additional history exists CKD PHOS USE SMARTSET 70395 05/19/2025 06/07/2024, 05/08/2024, 04/07/2024, Additional history exists Diabetic Foot Exam 05/19/2025 05/19/2024, 0 03/06/2023, 01/03/2022, Additional history exists CKD HGB USE SMARTSET 78161 07/14/202507/14, 07/14/2024, 06/30/2024, Additional history exists Sigmoidoscopy 04/12/2027 04/12/2022 Lipid [...] this encounter Medical Devices Implanted Type Area Admiralty Lawyer Device Identifier Shelf Expiration Date Model / Serial / Lot Clareon Iol Aspheric Hydrophobic Acrylic Iol Implanted:Qty: 1 on 04/23/2023 by Cody Gonzalez DO at OR [facility] Lens Left: Eye 11/12/2025 [id number] / [id number] / Viatorr Tips Endoprosthesis 8-10 Mm X 8cm / 2cm Implanted:Qty: 1 on 10/07/2020 by Go Alvarado MD at [facility] Right: Abdomen 03/03/2023 [id number] / / [id number] Description:Viatorr TIPS End oprosthesis 8-10 mm x 8cm / 2cm, Manufactored by [employer] Syr Pf 2ml Embospheres 100-300 - [id number] Implanted:Qty: 1 on 04/18/2021 by Kevin Lim DO at OR [facility] Left: Abdomen [employer] [id number] 11/25/2023 [id number] / / [id number] Lipiodol Injection - [id number] Implanted:Qty: 1 on 03/28/2022 at [facility] [employer] 03/01/2023 [id number] / / [id number] Syr Pf 2ml Embospheres 100-300 - [id number] Implanted:Qty: 1 on 03/28/2022 at [facility] [employer] [id number] 08/31/2024 S220GH / / [id number] -[id number] Clareon Iol Aspheric Hydrophobic Acrylic Iol Implanted:Qty: 1 on 04/02/2023 by Cody Gonzalez DO at OR [facility] Right: Eye [id number] 11/12/2025 [id number] / [id number] / Syr Pf 2ml Embospheres 100-300 - [id number] Implanted:Qty: 1 on 06/11/2024 at [facility] [employer] [id number] 01/02/2027 S220GH / / [id number] Cath Diag Cobra 2 [id number] - [id number] Implanted:Qty: 1 on 06/11/2024 at [facility] [employer] [id number] 10/06/2026 [id number] / / [id number] documented as of this encounter Visit Diagnoses Diagnosis Hospital discharge follow-up- Primary Other follow-up examination Acute encephalopathy Encephalopathy, unspecified Acute diverticulitis Diverticulitis of colon (without mention of hemorrhage) Hepatic cirrhosis, unspecified hepatic cirrhosis type, unspecified whether ascites present (HCC) Pancreatic lesion Unspecified disease of pancreas Radiation proctitis Other specified disorder of rectum and anus Pancytopenia (HCC) Other pancytopenia Prostate cancer (HCC) Malignant neoplasm of prostate documented in this encounter Advance Directives Documents on File Type Date Recorded Patient Computer Language 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
--- OUTSIDE RECORDS SUMMARY | 2024-08-04 05:30 | External Medical Summary | Summary of Care ---
Author Name Unknown Organization [facility] Address [address] [facility] [place] [address] Phone [phone] Care Team Providers Care Group Account Director Name Role Phone Kristen Vences DO Primary Care Provider [phone] Reason for Visit * Reason Onset Date Comments Med Request 07/17/2024 Encounter Details Date Type Department Care Team (Late st Contact Info) Description 07/17/2024 Telephone Family Practice [facility] [address] [place] [address] Kristen Vences DO [address] [place] [address] Med Request Allergies No known active allergiesdocumented [...] Men 50+ Oral Tablet Take by mouth. Activ e High Potency Iron 65 MG Oral Tablet Take by mouth. Act roderick Zinc 50 MG Oral Capsule [...] bedtime. Active Albumin Human 25 % Intravenous SolutionIndications [...] 09/02/2023 Active Allopurinol 100 MG Oral Tablet (Zyloprim)Indicatio [...] 11/13/2023 Active Albumin Human 25 % Intravenous SolutionIndications [...] 03/13/2024 Active Albumin Human 25 % Intravenous SolutionIndications [...] the morning. 90 Tablet 3 07/20/2024 Active Spironolactone 100 MG Oral Tablet (Aldactone) Take 1 Tablet by mouth in the morning. 05/30/2024 07/17/20 24 Discontinu ed(Refill) documented as of this [...] had his shot last month at [facility] Handy Lyons and Mckinley Cobian [...] Miscellaneous Notes * Telephone Encounter - Korin Lindsey CPhT - 07/17/2024 12:[address] [facility] calling requesting the following medication below that is listed as "Historical". The following information was provided: Medication Name: Spironolactone Strength: 100mg Directions: Take 1 Tablet by mouth in the morning. Preferred Quantity: 90 day supply Previous Prescriber: unknown Preferred Pharmacy: [facility]-[address] Please review and approve if appropriate. Thank you, Korin Lindsey CPhT Rn Discharge II [facility] ([facility]) 07/17/2024,12:16 PM documented in this encounter Plan of Treatment Upcoming Encounters Date Type Department Care Team (Late st Contact Info) Description 07/20/2024 4:00 PM EDT Office Visit [address] [place], [place] [address] Kristen Vences, [address] [place] [address] 07/21/2024 7:00 AM EDT Laboratory Lab Mobile Phlebotomy [facility] [address] [place], [place] [address] Mvmg, G[facility] Draw [address] [facility] [place], [place] [address] 07/22/2024 10:30 AM EDT Office Visit Palliative Medicine [facility] 200 [place] [phone] Ivana Moore MD [address] [place], [place] [address] [address] 07/24/2024 1:40 PM EDT Office Visit Nephrology, [facility] 200 [place] [address] Franki Herbert MD 200 [place] [address] 07/28/2024 7:00 AM EDT Laboratory Lab Mobile Phlebotomy [facility] [address] [facility] [place] [address] Mvmg, G[facility] Draw [address] [facility] [place], [place] [address] 08/04/2024 7:00 AM EDT Laboratory Lab Mobile Phlebotomy [facility] [address] [place], [place] [address] Mvmg, Gml [facility] Home Draw [address] [facility] [place] [address] 08/11/2024 7:00 AM EDT Laboratory Lab Mobile Phlebotomy [facility] [address] [place], [place] [address] Mvmg, Gml [facility] Draw [address] [place], [place] [address] 08/18/2024 7:00 AM EDT Laboratory Lab Mobile Phlebotomy [facility] [address] [place] [address] Mvmg, Gml [facility] Draw [address] [place], [place] [address] 08/25/2024 7:00 AM EDT Laboratory Lab Mobile Phlebotomy [facility] [address] [place], [place] [address] Mvmg, Gml Mobile Home Draw [address] [place] [address] 09/01/2024 7:00 AM EDT Laboratory Lab Mobile Phlebotomy [facility] [address] [employer] [address] [place], [place] [address] Mvmg, Gml Mobile Home Draw [address] [place], [place] [address] 09/08/2024 7:00 AM EDT Laboratory Lab Mobile Phlebotomy [facility] [address] [place], [place] [address] Mvmg, Gml Mobile Home Draw [address] [place], [place] [address] 09/11/2024 3:00 PM EDT Imaging Radiology [address], [address] [place] [address] 09/15/2024 7:00 AM EDT Laboratory Lab Mobile Phlebotomy [facility] [address] [place], [place] [address] Mvmg, Gml [facility] Home Draw [address] [place], [place] [address] 09/22/2024 7:00 AM EDT Laboratory Lab Mobile Phlebotomy [facility] [address] [place], [place] [address] Mvmg, Gml [facility] Home Draw [address] [place], [place] [address] 09/29/2024 7:00 AM EDT Laboratory Lab Mobile Phlebotomy [facility] [address] [place], [place] [address] Mvmg, Gml Mobile Home Draw [address] [place] [address] 10/06/2024 7:00 AM EST Laboratory Lab Mobile Phlebotomy [facility] [address] [facility] [place], [place] [address] Mvmg, Gml Mobile Home Draw [address] [facility] [place], [place] [address] 10/06/2024 3:30 PM EST Office Visit Hematology/Oncology [facility] 200 [facility] [place], [place] [address] Ayaka Tatum, JEFF 400 [facility] [place] [address] 10/13/2024 7:00 AM EST Laboratory Lab Mobile Phlebotomy [facility] [address] [place], [place] [address] Mvmg, Gml Mobile Home Draw [address] [facility] [place], [place] [address] 10/14/2024 2:00 PM EST Office Visit Pulmonary Medicine, [facility] 132 [facility] [place] [address] Jordan Stanley MD [address] [place] [address] 10/20/2024 7:00 AM EST Laboratory Lab Mobile Phlebotomy [facility] [address] [facility] [place], [place] [address] Mvmg, Gml Mobile Home Draw [address] [place], [place] [address] 10/27/2024 7:00 AM EST Laboratory Lab Mobile Phlebotomy [facility] [address] [facility] [place], [place] [address] Mvmg, Gml Mobile Home Draw [address] [place], [place] [address] 12/03/2024 1:30 PM EST Office Visit Urology Lynnette Fitzpatrick [address] [place] [address] Frank Peraza MD 27 [place] [address] 02/11/2025 2:15 PM EDT Office Visit Ophthalmology, [facility] 132 [facility] [place] [address] Cody Gonzalez DO [address] [place] [address] Scheduled Procedures Name Priority Associated Diagnoses Date/Ti [...] 06/03, 06/11/2024, Additional history exists Albumin/Creatinine Ratio 05/19/202505/19/2 024, 07/12/2023, 10/01/2022, Additional history exists CKD PHOS USE SMARTSET 30153 05/19/202505/02, 05/08/2024, 04/07/2024, Additional history exists Diabetic Foot Exam 05/19/2025 05/19/2024, 0 03/06/2023, 01/03/2022, Additional history exists CKD HGB USE SMARTSET 29211 07/14/202507/14, 07/14/2024, 06/30/2024, Additional history exists Sigmoidoscopy [...] this encounter Medical Devices Implanted Type Area Reducer Device Identifier Shelf Expiration Date Model / Serial / Lot Clareon Iol Aspheric Hydrophobic Acrylic Iol Implanted:Qty: 1 on 04/23/2023 by Cody Gonzalez DO at OR [facility] Lens Left: Eye 11/12/2025 CNA0T0 / [id number] / Viatorr Tips Endoprosthesis 8-10 Mm X 8cm / 2cm Implanted:Qty: 1 on 10/07/2020 by Go Alvarado MD at [facility] Right: Abdomen 03/03/2023 [id number] / / [id number] Description:Viatorr TIPS End oprosthesis 8-10 mm x 8cm / 2cm, Manufactored by [employer] Syr Pf 2ml Embospheres 100-300 - [id number] Implanted:Qty: 1 on 04/18/2021 by Kevin Lim DO at OR [facility] Left: Abdomen [employer] [id number] 11/25/2023 S220GH / / [id number] Lipiodol Injection - [id number] Implanted:Qty: 1 on 03/28/2022 at [facility] [employer] 03/01/2023 [id number] 01-2 / / [id number] Syr Pf 2ml Embospheres 100-300 - [id number] Implanted:Qty: 1 on 03/28/2022 at [facility] [employer] [id number] 08/31/2024 S220GH / / [id number] -[id number] Clareon Iol Aspheric Hydrophobic Acrylic Iol Implanted:Qty: 1 on 04/02/2023 by Cody Gonzalez DO at OR [facility] Right: Eye JAZMIN 11/12/2025 CNA0T0 / [id number] / Syr Pf 2ml Embospheres 100-300 - [id number] Implanted:Qty: 1 on 06/11/2024 at [facility] [employer] [id number] 01/02/2027 S220GH / / [id number] -[id number] Cath Diag Cobra 2 [id number] - [id number] Implanted:Qty: 1 on 06/11/2024 at [facility] [employer] [id number] 10/06/2026 H78 [id number] / / [id number] documented as of this encounter Advance Directives Documents on File Type Date 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
--- OUTSIDE RECORDS SUMMARY | 2024-08-04 05:30 | External Medical Summary | Summary of Care ---
Author Name Unknown Organization [facility] Address [address] [place] [address] Phone [phone] Care Team Providers Care Drug Discovery Informatics Specialist Name Role Phone Kristen Vences DO Primary Care Provider [phone] Encounter Details Date Type Department Care Team (Late st Contact Info) Description 07/16/2024 Result Scan Unspecified Department Ayaka Tatum CRNP [address] [facility] [place] [address] <No scans attached> Allergies No known active allergiesdocumented as of this encounter (statuses as of 07/17/2024) Medications Medication Sig Dispensed Refills Start Date [...] by mouth in the morning. 05/30/2024 Active Finasteride 5 MG Oral Tablet (Proscar) TAKE 1 TABLET BY MOUTH IN THE MORNING 90 Tablet 1 07/15/2024 Active documented as of this encounter (statuses as of 07/17/2024) Active Problems Problem Noted Date Diagnosed Date [...] as of this encounter (statuses as of 07/17/2024) Resolved Problems Problem Noted Date Diagnosed Date [...] as of this encounter (statuses as of 07/17/2024) Immunizations Name Administration Dates Next Due COVID-19 mRNA, LNP-s, No Pre serve, 2-Dose Series ([employer]) 03/08/2021,02/15/2021 HepA Inact/HepB Recomb>=18yrs old 12/04/2019,04/2019,05/20/2019 11/19/2019 [...] No 08/14/2023 Does the household have a [place] source of income? (Household - for ages [...] on file Are you (or your family) tmoer eless or worried that you might be [...] Mobile Phlebotomy [facility] [address] [place] [address] Mvmg, Gml Mobile Home Draw [address] [place] [address] 07/24/2024 1:40 PM EDT Office Visit Nephrology, [facility] [address] [place] [address] Franki Herbert MD [address] [place] [address] 07/28/2024 7:00 AM EDT Laboratory Lab Mobile Phlebotomy [facility] [address] [place] [address] Mvmg, Gml Mobile Home Draw [address] [place] [address] 08/04/2024 7:00 AM EDT Laboratory Lab Mobile Phlebotomy [facility] [address] [place] [address] Mvmg, Gml Mobile Home Draw [address] [place] [address] 08/11/2024 7:00 AM EDT Laboratory Lab Mobile Phlebotomy [facility] [address] [place] [address] [address] Mvmg, Gml Mobile Home Draw [address] [place] [address] 08/18/2024 7:00 AM EDT Laboratory Lab Mobile Phlebotomy [facility] [address] [place] [address] Mvmg, Gml Mobile Home Draw [address] [place] [address] 08/25/2024 7:00 AM EDT Laboratory Lab Mobile Phlebotomy [facility] [address] [employer] [place] [address] Mvmg, Gml Mobile Home Draw [address] [place] [address] 09/01/2024 7:00 AM EDT Laboratory Lab Mobile Phlebotomy [facility] [address] [place] [address] Mvmg, Gml Mobile Home Draw [address] [place] [address] 09/08/2024 7:00 AM EDT Laboratory Lab Mobile Phlebotomy [facility] [address] [place] [address] Mvmg, Gml Mobile Home Draw [address] [facility] [place] [address] 09/11/2024 3:00 PM EDT Imaging Radiology [address], [address] [address] 09/15/2024 7:00 AM EDT Laboratory Lab Mobile Phlebotomy [facility] [address] [place] [address] Mvmg, Gml Mobile Home Draw [address] [place] [address] 09/22/2024 7:00 AM EDT Laboratory Lab Mobile Phlebotomy [facility] [address] [employer] [place] [address] Mvmg, Gml Mobile Home Draw [address] [place] [address] 09/29/2024 7:00 AM EDT Laboratory Lab Mobile Phlebotomy [facility] [address] [place] [address] Mvmg, Gml Mobile Home Draw [address] [employer] [place], [place] [address] 10/06/2024 7:00 AM EST Laboratory Lab Mobile Phlebotomy [facility] [address] [employer] [place], [place] [address] Mvmg, Gml Mobile Home Draw [address] [employer] [place], [place] [address] 10/06/2024 3:30 PM EST Office Visit Hematology/Oncology [facility] [place] 200 [facility], [place] [phone] Ayaka Tatum CRNP [address] [place] [address] [place] [address] 10/13/2024 7:00 AM EST Laboratory Lab Mobile Phlebotomy [facility] [address] [employer] [place], [place] [address] Mvmg, Gml Mobile Home Draw [address] [facility] [place], [place] [address] 10/14/2024 2:00 PM EST Office Visit Pulmonary Medicine, [facility] 132 [facility] [place] [address] Jordan Stanley MD [address] [place] [address] 10/20/2024 7:00 AM EST Laboratory Lab Mobile Phlebotomy [facility] [address] [employer] [place], [place] [address] Mvmg, Gml Mobile Home Draw [address] [place], [place] [address] 10/27/2024 7:00 AM EST Laboratory Lab Mobile Phlebotomy [facility] [address] [employer] [place], [place] [address] Mvmg, Gml Mobile Home Draw [address] [place], [place] [address] 12/03/2024 1:30 PM EST Office Visit Urology Lynnette Fitzpatrick [address] [place] [address] Frank Peraza MD 27 [place] [address] 02/11/2025 2:15 PM EDT Office Visit Ophthalmology, [facility] 132 [facility] [place] [address] Cody Gonzalez DO [address] [place] [address] Scheduled Procedures Name Priority Associated Diagnoses Date/Ti [...] Additional history exists CKD PHOS USE SMARTSET 04849 05/19/202505/02, 05/08/2024, 04/07/2024, Additional history exists Diabetic Foot Exam 05/19/2025 05/19/2024, 0 03/06/2023, 01/03/2022, Additional history exists CKD HGB USE SMARTSET 95553 07/14/202507/14, 07/14/2024, 06/30/2024, Additional history exists Sigmoidoscopy [...] this encounter Medical Devices Implanted Type Area Salesperson Yard Goods Device Identifier Shelf Expiration Date Model / Serial / Lot Davideon Iol Aspheric Hydrophobic Acrylic Iol Implanted:Qty: 1 on 04/23/2023 by Cody Gonzalez DO at OR [facility] Lens Left: Eye 11/12/2025 CNA0T0 / [id number] / Viatorr Tips Endoprosthesis 8-10 Mm X 8cm / 2cm Implanted:Qty: 1 on 10/07/2020 by Go Alvarado MD at [facility] Right: Abdomen 03/03/2023 [id number] / / [id number] Description:Viatorr TIPS End oprosthesis 8-10 mm x 8cm / 2cm, Manufactored by [employer] Syr Pf 2ml Embospheres 100-300 - [id number] Implanted:Qty: 1 on 04/18/2021 by Kevin Lim DO at OR [facility] Left: Abdomen [employer] [id number] 11/25/2023 S220GH / / [id number] Lipiodol Injection - [id number] Implanted:Qty: 1 on 03/28/2022 at [facility] [employer] 03/01/2023 [id number] 01-2 / / [id number] Syr Pf 2ml Embospheres 100-300 - [id number] Implanted:Qty: 1 on 03/28/2022 at [facility] [employer] [id number] 08/31/2024 S220GH / / [id number] -5 Clareon Iol Aspheric Hydrophobic Acrylic Iol Implanted:Qty: 1 on 04/02/2023 by Cody Gonzalez DO at [facility] Right: Eye JAZMIN 11/12/2025 CNA0T0 / [id number] / Syr Pf 2ml Embospheres 100-300 - [id number] Implanted:Qty: 1 on 06/11/2024 at [facility] [employer] [id number] 01/02/2027 S220GH / / [id number] -[id number] Cath Diag Cobra 2 [id number] - [id number] Implanted:Qty: 1 on 06/11/2024 at [facility] [employer] [id number] 10/06/2026 H78 [id number] / / [id number] documented as of this encounter Procedures Procedure Name Priority Date/Time Associated Diagnosis Comments OUTSIDE LAB RESULTS 07/16/2024 documented in this encounter Results * OUTSIDE LAB RESULTS (07/16/2024) 07/16/2024 Ayaka Tatum [facility] documented in this encounter Advance Directives Documents on File Type Date Recorded 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
--- OUTSIDE RECORDS SUMMARY | 2024-08-04 05:30 | External Medical Summary ---
Author Name Unknown Address Unknown Organization K01:[facility] - [address] [place] [address] Laboratory Report Ordering Provider Test Date Status ZULAYCHELSEY 07/21/2024 11:36:00 Final Observation Date Value Abnormality Reference (Units) Status Pathologist review of results 07/21/2024 11:36:00 Dysplastic neutrophils and pancytopenia. Consider MDS workup if drug and viral causes of marrow dysfunction are ruled out clinically. Final Performing Location [facility] - [address] [place] [address]
--- OUTSIDE RECORDS SUMMARY | 2024-08-04 05:30 | External Medical Summary | Summary of Care ---
Author Name Unknown Organization [facility] Address [address] [place] [address] Phone [phone] Care Team Providers Care Consumer Lending Manager Name Role Phone Vangie Kristenlang Rubin DO Primary Care Provider [phone] Reason for Visit * Reason Onset Date Comments Advice 05/05/2024 Encounter Details Date Type Department Care Team (Late st Contact Info) Description 05/05/2024 Telephone Urology, [facility] [address] [place] [address] Services, Scheduling [address] [place] [address] Advice Allergies No known active allergiesdocumented as of this encounter (statuses as of 07/18/2024) Medications Medication Sig Dispensed Refills Start Date End Date Status OneTouch Verjeffrey In Vitro Strip (Glucose Blood)Indications: Type 2 diabetes mellitus with hemoglobin A1c goal of less than 7.0% ([facility]) Use to test blood sugars 3 times a day 300 Strip 5 2 Active BD Pen Needle Elizabeth 2nd Gen 32G X 4 MM USE DIRECTED TO ADMINISTER INSULIN AT DINNER DAILY 2 Active Mirtazapine 30 MG Oral Tablet [...] Active Probiotic (Lactobacillus) Oral Capsule 1 Capsule. 3 Active oxygen IN GAS Use 2 L/min(Oxygen) as directed at bedtime. Active Albumin Human 25 % Intravenous SolutionIndication s:Cirrhosis of liver with ascites, unspecified hepatic cirrhosis type (HCC) 25Gm before and after paracentesis 100 mL 3 Active Metoclopramide HCl 5 MG Oral Tablet (Reglan) One tab as often as 3 times a day, if needed for nausea 90 Tablet 3 3 Active Pantoprazole Sodium 40 MG Oral Tablet Delayed Release (Protonix)Indicati ons:GAVE (gastric antral vascular ectasia) Take 1 Tablet by mouth in the morning and 1 Tablet in the evening. 60 Tablet 5 3 Active Allopurinol 100 MG Oral Tablet (Zyloprim)Indicati ons:Gout of big toe Take 2 Tablets by mouth in the morning. 180 Tablet 2 3 Active Lantus 100 UNIT/ML Subcutaneous Solution Inject 25 Units under the skin every evening. With dinner 3 Each 5 3 Active rifAXIMin 550 MG Oral Tablet (Xifaxan)Indicatio ns:Cirrhosis of liver (HCC),Hepatic encephalopathy (HCC) Take 1 Tablet by mouth in the morning and 1 Tablet before bedtime. 180 Tablet 5 3 Active DULoxetine HCl 30 MG Oral Capsule Delayed Release Particles (Cymbalta) Take 1 Capsule by mouth in the morning. 90 Capsule 1 4 Active Lantus SoloStar 100 UNIT/ML Subcutaneous Solution Pen-injector once. 3 Active Albumin Human 25 % Intravenous SolutionIndication [...] to 60 minute each unit 50 mL 4 Active Triamcinolone Acetonide 0.1 % External Cream (Aristocort) Apply to psoriatic lesions on arms, legs, hands, feet, chest, back, abdomen twice a day as needed for 2-3 weeks 453.6 g 4 Active Albumin Human 25 % Intravenous SolutionIndication s:Cirrhosis of liver (HCC) If paracentesis yields a [...] 60 minute each unit 300 mL 100 4 Active Mag64 64 MG Oral Tablet Delayed Release Take 1 Tablet by mouth in the morning. Active Potassium Chloride Stephanie ER 20 MEQ Oral Tablet Extended Release 1 Tablet in the morning. 4 Active Solifenacin Succinate 5 MG Oral Tablet (VESIcare) Take 1 Tablet by mouth in the morning. 30 Tablet 6 4 Active Cholestyramine 4 GM Oral Packet (Questran) Take 1 Packet by mouth in the morning and 1 Packet before bedtime. Mix with water and drink before a meal.. 60 Packet 5 4 Active Additional Information Patient not taking.Reported on 06/05/2024 Tylenol 325 MG Oral Capsule (Acetaminophen) Take 650 mg by mouth every 8 hours as needed for Pain (fever). 05/08/20 24 Discontinued Furosemide 20 MG Oral Tablet (Lasix)Indications :Cirrhosis of liver with ascites, unspecified hepatic cirrhosis type (HCC) Take 2 Tablets by mouth in the morning. 180 Tablet 3 3 05/12/20 24 Discontinued Finasteride 5 MG Oral Tablet (Proscar) Take 1 Tablet by mouth in the morning. 90 Tablet 1 3 07/15/20 24 Discontinued Cefdinir 300 MG Oral Capsule (Omnicef) Take 1 Capsule by mouth in the morning and 1 Capsule before bedtime. At DC 03/20/24. 4 05/12/20 24 Discontinued Sulfamethoxazole-T rimethoprim 800-160 MG Oral Tablet (Bactrim DS) Take 1 Tablet by mouth in the morning and 1 Tablet before bedtime. Use as directed.. 30 Tablet 4 05/08/20 24 Discontinued documented as of this encounter (statuses as of 07/18/2024) Active Problems Problem Noted Date Diagnosed Date [...] as of this encounter (statuses as of 07/18/2024) Resolved Problems Problem Noted Date Diagnosed Date [...] as of this encounter (statuses as of 07/18/2024) Immunizations Name Administration Dates Next Due COVID-19 mRNA, LNP-s, No Pre serve, 2-Dose Series (trinket) 03/08/2021,02/15/2021 HepA Inact/HepB Recomb>=18yrs old 12/04/2019,04/2019,05/20/2019 11/19/2019 PPD 06/18/2017, 3,01/09/2012,06/2011 Pneumococcal Conjugate Vacc, 13 Valent (Prevnar) 05/01/2017 Pneumococcal Polysaccharide PPV23 (Pneumovax) 08/28/2022,10/25/2015,07/14/2012 Season Influenza, Quad, PF, Adjuvanted, 65+ Yrs, IM (FLUAD) 10/07/2020(Deferred: Patient Refused - pt says he already had his shot last month at [facility] and [facility] made aware) [...] Telephone Encounter - Kaylie Glass LPN - 05/11/2024 11:[address] Stu MELENDEZ. Patient was admitted to [facility], [facility] procedure with Dr Luna 05/09. Per today's notes discharge is planned for later this week. Thank you Gudelia * Telephone Encounter - Kaylie Glass LPN - 05/07/2024 12:14 PM EDT Intake has been accepted for [facility]. * Telephone Encounter - Frank Peraza MD - 05/07/2024 7:21 AM EDT Think patient is being transferred to [facility] for consideration of nephrostomy tube intervention more acutely per discussion with hospitalist. We can follow-up on this. Thanks, HM * Telephone Encounter - Kaylie Glass LPN - 05/06/2024 4:20 PM EDT Spoke with pt. Agreeable to discussion of nephrostomy tubes. Please place IR referral if agreeable.Patient will let us know when he has discharge date from [facility] for appointment with you. 15 minutes spent on phone with patient. Thank you Gudelia * Telephone Encounter - Frank Peraza MD - 05/06/2024 10:08 AM EDT Transfer to [facility] would likely not be ideal due to the lack of we can coverage. If this was felt to be needed acutely, would likely have to be transferred to [facility]. Thx,HM * Telephone Encounter - Frank Peraza MD - 05/06/2024 10:07 AM EDT Seen the patient's ongoing difficulties I think a reasonable option would be conversion from indwelling Kan catheter to bilateral percutaneous nephrostomy tubes seen that this suspected source of his bleeding remains his bladder. We had discussed this previously, prior to his current difficulties. We can place referral to begin coordination for bilateral percutaneous nephrostomy tubes if patient desires. Thanks, HM * Telephone Encounter - Kaylie Glass LPN - 05/05/2024 4:[address] Peraza Spoke with pt. States he has had 8 units of blood and 2 units of iron since admission to [facility]. States urologist at [facility] recommended cystectomy, patient states that is not an option he is willing to consider. Patient asking what you recommend. Patient inquired about transfer to [facility] so that he is underyour care. Records printed and scanned. Thank you Gudelia * Telephone Encounter - Dalia Galeana OSA - 05/05/2024 3:56 PM EDT Reason for patient's call: Pt currently admitted to [facility] but calling in asking to talk to urology nursing due to the pain he is in and the catheter problems Caller was transferred to [facility] at the nurse line. documented in this encounter Plan of Treatment Upcoming Encounters Date Type Department Care Team (Late st Contact Info) Description 07/20/2024 4:00 PM EDT Office Visit Family Practice [facility] [address] [place] [address] Kristen Vences DO [address] [place] [address] 07/21/2024 7:00 AM EDT Laboratory Lab Mobile Phlebotomy [facility] [address] [place] [address] [facility] [address] [place] [address] 07/22/2024 10:30 AM EDT Office Visit Palliative Medicine [facility] [address] [facility] [place] [phone] Ivana Moore MD [address] [place] [address] [place] [address] 07/24/2024 1:40 PM EDT Office Visit Nephrology, [address] [place] [address] Franki Herbert MD [address] [place] [address] 07/28/2024 7:00 AM EDT Laboratory Lab [facility]lebot[facility] [address] [place] [address] [facility], [facility] [address] [place] [address] 08/04/2024 7:00 AM EDT Laboratory Lab [facility] Phlebot[facility] [address] [place] [address] [facility], [facility] [address] [place] [place] [address] 08/11/2024 7:00 AM EDT Laboratory Lab [facility] Phlebot[facility] [address] [place] [address] [facility], [facility] [address] [place] [address] 08/18/2024 7:00 AM EDT Laboratory Lab [facility]bot[facility] [address] [place] [address] [facility], [facility] [address] [place] [address] 08/25/2024 7:00 AM EDT Laboratory Lab [facility]lebot[facility] [address] [place] [address] [facility], [facility] [address] [place] [address] 09/01/2024 7:00 AM EDT Laboratory Lab [facility]lebot[facility] [address] [place] [address] [facility], [facility] [address] [place] [address] 09/08/2024 7:00 AM EDT Laboratory Lab [facility]lebot[facility] [address] [place] [address] [facility], [facility] [address] [place], [place] [address] 09/11/2024 3:00 PM EDT Imaging Radiology [address], [place] [address] [place] [address] 09/15/2024 7:00 AM EDT Laboratory Lab [facility] Phlebot[facility] [address] [place] [address] [facility], [facility] [address] [place], [place] [address] 09/22/2024 7:00 AM EDT Laboratory Lab [facility] Phlebot[facility] [address] [place] [address] [facility], [facility] [address] [place], [place] [address] 09/29/2024 7:00 AM EDT Laboratory Lab [facility] [address] [place] [address] [facility], [facility] [address] [place], [place] [address] 10/06/2024 7:00 AM EST Laboratory Lab [facility] [address] [place] [address] [facility], [facility] [address] [place], [place] [address] 10/06/2024 3:30 PM EST Office Visit Hematology/Oncology [facility] [place] [address] [facility] [place] [phone] Ayaka Tatum, JEFF [address] [place] [address] 10/13/2024 7:00 AM EST Laboratory Lab [facility] Phlebot[facility] [address] [place], [place] [address] [facility], [facility] [address] [place] [address] 10/14/2024 2:00 PM EST Office Visit Pulmonary Medicine, [facility] [address] [place] [address] Jordan Stanley MD [address] [place] [address] [address] 10/20/2024 7:00 AM EST Laboratory [facility] [address] [place] [address] [facility], [facility] [address] [place], [place] [address] 10/27/2024 7:00 AM EST Laboratory Lab [facility] Phlebot[facility] [address] [place] [address] [facility], [facility] Draw [address] [facility] [place] [address] 12/03/2024 1:30 PM EST Office Visit Urology Lynnette Fitzpatrick [address] [facility] [address] [address] [address] Frank Peraza MD [address] [place] [address] 02/11/2025 2:15 PM EDT Office Visit Ophthalmology, [facility] [address] [facility] [place] [address] Cody Gonzalez, DO [address] [facility] [place] [address] Scheduled Procedures Name Priority Associated Diagnoses Date/Ti [...] Postponed from 01/17/2024 (Other) HbA1c 12/31/2024 06/30/2024, 06/2024, 11/27/2023, Additional history exists GFR 01/14/2025 07/14/2024, 06/03, 06/11/2024, Additional history exists Albumin/Creatinine Ratio 05/19/2025 024, 07/12/2023, 10/01/2022, Additional history exists CKD PHOS USE SMARTSET 60221 05/19/202505/02, 05/08/2024, 04/07/2024, Additional history exists Diabetic Foot Exam 05/19/2025 05/19/2024, 0 03/06/2023, 01/03/2022, Additional history exists CKD HGB USE SMARTSET 05822 07/14/202507/14, 07/14/2024, 06/30/2024, Additional history exists Sigmoidoscopy [...] encounter Medical Devices Implanted Type Area Senior Game Advisor Device Identifier Shelf Expiration Date Model / Serial / Lot Clareon Iol Aspheric Hydrophobic Acrylic Iol Implanted:Qty: 1 on 04/23/2023 by Cody Gonzalez DO at OR [facility] Lens Left: Eye 11/12/2025 [id number] / [id number] / Viatorr Tips Endoprosthesis 8-10 Mm X 8cm / 2cm Implanted:Qty: 1 on 10/07/2020 by Go Alvarado MD at [facility] Right: Abdomen 03/03/2023 [id number] / / [id number] Description:Viatorr TIPS End oprosthesis 8-10 mm x 8cm / 2cm, Manufactored by [employer] Syr Pf 2ml Embospheres 100-300 - [id number] Implanted:Qty: 1 on 04/18/2021 by Kevin Lim DO at OR [facility] Left: Abdomen [employer] [id number] 11/25/2023 S220GH / / [id number] Lipiodol Injection - [id number] Implanted:Qty: 1 on 03/28/2022 at [facility] [employer] 03/01/2023 [id number] 01-2 / / [id number] Syr Pf 2ml Embospheres 100-300 - [id number] Implanted:Qty: 1 on 03/28/2022 at [facility] [employer] [id number] 08/31/2024 S220GH / / [id number] -5 Clareon Iol Aspheric Hydrophobic Acrylic Iol Implanted:Qty: 1 on 04/02/2023 by Cody Gonzalez DO at OR [facility] Right: Eye JAZMIN 11/12/2025 CNA0T0 / [id number] / Syr Pf 2ml Embospheres 100-300 - [id number] Implanted:Qty: 1 on 06/11/2024 at [facility] [employer] [id number] 01/02/2027 S220 / / [id number] Cath Diag Cobra 2 [id number] - [id number] Implanted:Qty: 1 on 06/11/2024 at [facility] [employer] [id number] 10/06/2026 [id number] / / [id number] documented as of this encounter Advance Directives Documents on File Type Date Recorded Patient Tobacco Checkout Clerk Expl anation Advance Directives and Living Will 12/11/2022 ADVANCE DIRECTIVE / LIVING WILL LIVING WILL Power of Yarn Weigher 12/11/2022 POWER OF A TTORNEY * Full [...] Discussed due to patient's condition Care Teams Consumer Lending Manager Relationship Specialty Start Date End Date Kristen Vences DO [address] [place] [address] PCP - General Family Medicine 05/19/24 documented as of this encounter
--- OUTSIDE RECORDS SUMMARY | 2024-08-04 05:30 | External Medical Summary ---
Author Name Unknown Address Unknown Organization K01:[facility] [place] [address] [facility] [place] [address] Laboratory Report Ordering Provider Test Date Status CHELSEY BISWAS 07/21/2024 11:36:00 Final Observation Date Value Abnormality Reference (Units ) Status SYNC LEUKOCYTES IN BLOOD BY AUTOMATED COUNT 07/21/2024 11:36:00 1.83 Below low normal 4.00-10.80 (K/uL) Final Neutrophils/100 leukocytes in Blood by Manual count 07/21/2024 11:36:00 62.0 40.0-75.0 (%) Final Lymphocytes/100 leukocytes in Blood by Manual count 07/21/2024 11:36:00 25.0 18.0-42.0 (%) Final Monocytes/100 leukocytes in Blood by Manual count 07/21/2024 11:36:00 3.0 1.0-11.0 (%) Final Eosinophils/100 leukocytes in Blood by Manual count 07/21/2024 11:36:00 9.0 Above high normal 0.0-6.0 (%) Final Myelocytes/100 leukocytes in Blood by Manual count 07/21/2024 11:36:00 1.0 Above high normal <=0.0 (%) Final Neutrophils [#/volume] in Blood by Manual count 07/21/2024 11:36:00 1.13 Below low normal 1.80-7.70 (K/uL) Final Lymphocytes [#/volume] in Blood by Manual count 07/21/2024 11:36:00 0.46 Below low normal 1.00-4.80 (K/uL) Final Monocytes [#/volume] in Blood by Manual count 07/21/2024 11:36:00 0.05 0.00-1.10 (K/uL) Final Eosinophils [#/volume] in Blood by Manual count 07/21/2024 11:36:00 0.16 0.00-0.70 (K/uL) Final Myelocytes [#/volume] in Blood by Manual count 07/21/2024 11:36:00 0.02 Above high normal <=0.00 (K/uL) Final Ovalocytes [Presence] in Blood by Light microscopy 07/21/2024 11:36:00 Moderate Abnormal None Seen Final Schistocytes 07/21/2024 11:36:00 Few Abnormal None Seen Final Performing Location [facility] [place] [place] [address] [facility] [address]
--- OUTSIDE RECORDS SUMMARY | 2024-08-04 05:30 | External Medical Summary | Summary of Care ---
Author Name Unknown Organization [facility] Address [address] [facility] [place] [address] Phone [phone] Care Team Providers Care Golf Manager Name Role Phone Kristen Vences Primary Care Provider [phone] Reason for Visit * Reason Onset Date Comments Advice 04/20/2024 Encounter Details Date Type Department Care Team (Late st Contact Info) Description 04/20/2024 Telephone Urology Lynnette Fitzpatrick [address] [place] [address] Frank Peraza MD 27 [place] [address] Advice Allergies No known active allergiesdocumented as of this encounter (statuses as of 07/20/2024) Medications Medication Sig Dispensed Refills Start Date End Date Status OneTouch Verio In Vitro Strip (Glucose Blood)Indications: [...] mRNA, LNP-s, No Pre serve, 2-Dose Series (Knowthena) 03/08/2021,02/15/2021 HepA Inact/HepB Recomb>=18yrs old 12/04/2019,04/2019,05/20/2019 11/19/2019 PPD 06/18/2017, 3,01/09/2012,06/2011 Pneumococcal Conjugate Vacc, 13 Valent (Prevnar) 05/01/2017 Pneumococcal Polysaccharide PPV23 (Pneumovax) 08/28/2022,10/25/2015,07/14/2012 Season Influenza, Quad, PF, Adjuvanted, 65+ Yrs, IM (FLUAD) 10/07/2020(Deferred: Patient Refused - pt says he already had his shot last month at [facility] Handy Lyons and Mckinley Cobian made aware) [...] Telephone Encounter - Kaylie Glass LPN - 04/21/2024 12:[address] Peraza Patient was admitted, just FY. Thank you Gudelia * Telephone Encounter - Patti Martines OSA - 04/20/2024 2:59 PM EDT Pt states a couple weeks ago he stated having blood clots in his urine. He is at [facility] now because he wasn't able to urinate so they put in catheter and his hemoglobin was low as well. documented in this encounter Plan of Treatment Upcoming Encounters Date Type Department Care Team (Late st Contact Info) Description 07/21/2024 7:00 AM EDT Laboratory Lab Mobile Phlebotomy [facility] [address] [place] [address] M[facility], [facility] [address] [place] [address] 07/22/2024 10:30 AM EDT Office Visit Palliative Medicine [facility] 200 [place] [address] Ivana Moore MD [address] [place] [address] [place] [address] 07/24/2024 1:40 PM EDT Office Visit [facility], [facility] [address] Franki [facility] [address] 07/27/2024 2:00 PM EDT Office Visit Gastroenterology, [facility] 132 [place] [address] Lamar Tatum CRNP [address] [place] [address] 07/28/2024 7:00 AM EDT Laboratory Lab Mobile Phlebotomy [facility] [address] [place] [address] Mvmg, [facility] [address] [place] [address] 08/04/2024 7:00 AM EDT Laboratory Lab Mobile Phlebotomy [facility] [address] [place], [place] [address] Mvmg, G[facility] Draw [address] [place] [address] 08/11/2024 7:00 AM EDT Laboratory Lab Mobile Phlebotomy [facility] [address] [place] [address] Mvmg, G[facility] Draw [address] [place] [address] 08/18/2024 7:00 AM EDT Laboratory Lab Mobile Phlebotomy [facility] [address] [place] [address] Mvmg, Gml [facility] Draw [address] [place] [address] 08/25/2024 7:00 AM EDT Laboratory Lab Mobile Phlebotomy [facility] [address] [place] [address] Mvmg, Gml [facility] Draw [address] [place] [address] 09/01/2024 7:00 AM EDT Laboratory Lab Mobile Phlebotomy [facility] [address] [place], [place] [address] Mvmg, Gml [facility] Draw [address] [place] [address] 09/08/2024 7:00 AM EDT Laboratory Lab Mobile Phlebotomy [facility] [address] [place], [place] [address] Mvmg, Gml [facility] Draw [address] [place] [address] 09/11/2024 3:00 PM EDT Imaging Radiology [address], [address] [place] [address] 09/15/2024 7:00 AM EDT Laboratory Lab Mobile Phlebotomy [facility] [address] [place] [address] Mvmg, Gml [facility] Draw [address] [place], [place] [address] 09/22/2024 7:00 AM EDT Laboratory Lab Mobile Phlebotomy [facility] [address] [place], [place] [address] Mvmg, Gml [facility] Draw [address] [place], [place] [address] 09/29/2024 7:00 AM EDT Laboratory Lab Mobile Phlebotomy [facility] [address] [place], [place] [address] Mvmg, Gml [facility] Draw [address] [place], [place] [address] 10/06/2024 7:00 AM EST Laboratory Lab Mobile Phlebotomy [facility] [address] [place] [address] Mvmg, Gml Mobile Home Draw 2520 [facility] [place], [place] [address] 10/06/2024 3:30 PM EST Office Visit Hematology/Oncology [facility] [place] 200 [facility] [place], [place] [phone] Ayaka Tatum, INSPECTOR AIDE [address] [place] [address] [place] [address] 10/13/2024 7:00 AM EST Laboratory Lab Mobile Phlebotomy [facility] [address] [place], [place] [address] Mvmg, Gml [facility] Home Draw 2519 [facility] [place], [place] [address] 10/14/2024 2:00 PM EST Office Visit Pulmonary Medicine, [address] [place] [address] Jordan Stanley MD [address] [place] [address] 10/20/2024 7:00 AM EST Laboratory Lab Mobile Phlebotomy [facility] [address] [place], [place] [address] Mvmg, Gml [facility] Draw [address] [place], [place] [address] 10/27/2024 7:00 AM EST Laboratory Lab Mobile Phlebotomy [facility] [address] [place], [place] [address] Mvmg, Gml Mobile Home Draw [address] [employer] [facility], [place] [address] 12/03/2024 1:30 PM EST Office Visit Urology Lynnette Fitzpatrick 27 [address]la [address] [place] [address] Frank Peraza MD 27 [place] [address] 01/26/2025 3:15 PM EST Office Visit Urology, [facility] 132 [facility] [place] [address] Frank Peraza MD 27 [place] [address] 02/11/2025 2:15 PM EDT Office Visit Ophthalmology, [facility] 132 [facility] [place] [address] Cody Gonzalez DO 21 [facility] [place] [address] Scheduled Procedures Name Priority Associated Diagnoses Date/Ti [...] Additional history exists CKD PHOS USE SMARTSET 47947 05/19/202505/02, 05/08/2024, 04/07/2024, Additional history exists Diabetic Foot Exam 05/19/2025 05/19/2024, 0 03/06/2023, 01/03/2022, Additional history exists CKD HGB USE SMARTSET 57469 07/14/202507/14, 07/14/2024, 06/30/2024, Additional history exists Sigmoidoscopy [...] this encounter Medical Devices Implanted Type Area Job Training Supervisor Device Identifier Shelf Expiration Date Model / Serial / Lot Clareon Iol Aspheric Hydrophobic Acrylic Iol Implanted:Qty: 1 on 04/23/2023 by Cody Gonzalez DO at [facility] Lens Left: Eye 11/12/2025 CNA0T0 / [id number] / Viatorr Tips Endoprosthesis 8-10 Mm X 8cm / 2cm Implanted:Qty: 1 on 10/07/2020 by Go Alvarado MD at [facility] Right: Abdomen 03/03/2023 [id number] / / [id number] Description:Viatorr TIPS End oprosthesis 8-10 mm x 8cm / 2cm, Manufactored by [employer] Syr Pf 2ml Embospheres 100-300 - [id number] Implanted:Qty: 1 on 04/18/2021 by Kevin Lim DO at [facility] Left: Abdomen [employer] [id number] 11/25/2023 S220GH / / [id number] Lipiodol Injection - [id number] Implanted:Qty: 1 on 03/28/2022 at [facility] [employer] 03/01/2023 [id number] 01-2 / / [id number] Syr Pf 2ml Embospheres 100-300 - [id number] Implanted:Qty: 1 on 03/28/2022 at [facility] [employer] [id number] 08/31/2024 S220GH / / [id number] -[id number] Clareon Iol Aspheric Hydrophobic Acrylic Iol Implanted:Qty: 1 on 04/02/2023 by Cody Gonzalez DO at [facility] Right: Eye JAZMIN 11/12/2025 CNA0T0 / [id number] / Syr Pf 2ml Embospheres 100-300 - [id number] Implanted:Qty: 1 on 06/11/2024 at [facility] [employer] [id number] 01/02/2027 S220GH / / [id number] Cath Pradeep Mills 2 [id number] - [id number] Implanted:Qty: 1 on 06/11/2024 at [facility] [employer] [id number] 10/06/2026 H78 [id number] / / [id number] documented as of this encounter Advance Directives Documents on File Type Date Recorded Patient Venetian Blind Cleaner Expl anation Advance Directives and Living Will 12/11/2022 ADVANCE DIRECTIVE / LIVING WILL LIVING WILL Power of Die Tester 12/11/2022 POWER OF A TTORNEY * [...] Discussed due to patient's condition Care Teams Golf Manager Relationship Specialty Start Date End Date Kristen Vences DO [address] [place] [address] PCP - General Family Medicine 05/19/24 documented as of this encounter
--- OUTSIDE RECORDS SUMMARY | 2024-08-04 05:31 | External Medical Summary | Summary of Care ---
Author Name Unknown Organization [facility] Address [address] [place] [place] [place] [address] Phone [phone] Care Team Providers Care Assembler Dc Field Ring Name Role Phone VangieKristen shahid Caryn SANDOVAL Primary Care Provider [phone] Encounter Details Date Type Department Care Team (Late st Contact Info) Description 07/15/2024 Telephone Hematology/Oncology [facility] [place] 200 [facility] [place] [address] Ayaka Tatum CRNP 400 [place] [address] Allergies No known active allergiesdocumented as of this encounter (statuses as of 07/16/2024) Medications Medication Sig Dispensed Refills Start Date [...] as of this encounter (statuses as of 07/16/2024) Active Problems Problem Noted Date Diagnosed Date [...] as of this encounter (statuses as of 07/16/2024) Resolved Problems Problem Noted Date Diagnosed Date [...] as of this encounter (statuses as of 07/16/2024) Immunizations Name Administration Dates Next Due COVID-19 mRNA, LNP-s, No Pre serve, 2-Dose Series (Pfizer) 03/08/2021,02/15/2021 HepA Inact/HepB Recomb>=18yrs old 12/04/2019,04/2019,05/20/2019 11/19/2019 PPD 06/18/2017, 3,01/09/2012,06/2011 Pneumococcal Conjugate Vacc, 13 Valent (Prevnar) 05/01/2017 Pneumococcal Polysaccharide PPV23 (Pneumovax) 08/28/2022,10/25/2015,07/14/2012 Season Influenza, Quad, PF, Adjuvanted, 65+ Yrs, IM (FLUAD) 10/07/2020(Deferred: Patient Refused - pt says he already had his shot last month at [facility]y Lyons and Mckinley Cobian [...] Telephone Encounter - Ayaka Tatum CRNP - 07/15/2024 10:00 PM EDT Results for orders placed or [...] can be found in Results Review. Hgb 7.9. Please follow up with patient if he would like to schedule appointment at [facility] for oneunit of PRBC. Thank you! documented in this encounter Plan of Treatment Upcoming Encounters Date Type Department Care Team (Late st Contact Info) Description 07/21/2024 7:00 AM EDT Laboratory Lab Mobile Phlebotomy [facility] [address] [place] [address] Mvmg, Gml Mobile Home Draw [address] [place], [place] [address] 07/24/2024 1:40 PM EDT Office Visit Nephrology, [facility] [address] [place] [address] Franki Herbert MD [address] [place] [address] 07/28/2024 7:00 AM EDT Laboratory Lab Mobile Phlebotomy [facility] [address] [place], [place] [address] Mvmg, Gml Mobile Home Draw [address] [place], [place] [address] 08/04/2024 7:00 AM EDT Laboratory Lab Mobile Phlebotomy [facility] [address] [place] [address] Mvmg, Gml [facility] Draw [address] [place] [address] 08/11/2024 7:00 AM EDT Laboratory Lab Mobile Phlebotomy [facility] [address] [place] [address] Mvmg, Gml [facility] Home Draw [address] [place] [address] 08/18/2024 7:00 AM EDT Laboratory Lab Mobile Phlebotomy [facility] [address] [place] [address] Mvmg, Gml [facility] Draw [address] [place] [address] 08/25/2024 7:00 AM EDT Laboratory Lab Mobile Phlebotomy [facility] [address] [place] [address] Mvmg, Gml [facility] Home Draw [address] [place] [address] 09/01/2024 7:00 AM EDT Laboratory Lab Mobile Phlebotomy [facility] [address] [place], [place] [address] Mvmg, Gml Mobile Home Draw [address] [place], [place] [address] 09/08/2024 7:00 AM EDT Laboratory Lab Mobile Phlebotomy [facility] [address] [place], [place] [address] Mvmg, Gml Mobile Home Draw [address] [employer] [employer] [place], [place] [address] 09/11/2024 3:00 PM EDT Imaging Radiology [address], [place] 132 [facility] [place] [address] 09/15/2024 7:00 AM EDT Laboratory Lab Mobile Phlebotomy [facility] [address] [place], [place] [address] Mvmg, Gml Mobile Home Draw [address] [place], [place] [address] 09/22/2024 7:00 AM EDT Laboratory Lab Mobile Phlebotomy [facility] [address] [place], [place] [address] Mvmg, Gml Mobile Home Draw [address] [place] [address] 09/29/2024 7:00 AM EDT Laboratory Lab Mobile Phlebotomy [facility] [address] [place], [place] [address] Mvmg, Gml Mobile Home Draw [address] [place] [address] 10/06/2024 7:00 AM EST Laboratory Lab Mobile Phlebotomy [facility] [address] [place], [place] [address] Mvmg, Gml Mobile Home Draw [address] [place], [place] [address] 10/06/2024 3:30 PM EST Office Visit Hematology/Oncology [facility] [place] 200 [facility] [place], [place] [address] Ayaka Tatum CRNP [address] [place] [address] [place] [id number] 10/13/2024 7:00 AM EST Laboratory Lab Mobile Phlebotomy [facility] [address] [place], [place] [address] Mvmg, Gml Mobile Home Draw [address] [place] [address] 10/14/2024 2:00 PM EST Office Visit Pulmonary Medicine, [facility] 132 [facility] [place] [address] Jordan Stanley MD [address] [place] [address] 10/20/2024 7:00 AM EST Laboratory Lab Mobile Phlebotomy [facility] [address] [place] [address] Mvmg, Gml Mobile Home Draw 2520 [facility], [place] [address] 10/27/2024 7:00 AM EST Laboratory Lab Mobile Phlebotomy [facility] [address] [place], [place] [address] Mvmg, Gml Mobile Home Draw 2520 [facility], [place] [address] 12/03/2024 1:30 PM EST Office Visit Urology Lynnette Fitzpatrick 27 [address] [place] [address] Frank Peraza MD 27 [place] [address] 02/11/2025 2:15 PM EDT Office Visit Ophthalmology, [facility] 132 [facility] [place] [address] Cody Gonzalez DO 21 [place] [address] Scheduled Procedures Name Priority Associated Diagnoses Date/Ti [...] Additional history exists CKD PHOS USE SMARTSET 59729 05/19/202505/02, 05/08/2024, 04/07/2024, Additional history exists Diabetic Foot Exam 05/19/2025 05/19/2024, 0 03/06/2023, 01/03/2022, Additional history exists CKD HGB USE SMARTSET 68775 07/14/202507/14, 07/14/2024, 06/30/2024, Additional history exists Sigmoidoscopy [...] this encounter Medical Devices Implanted Type Area Contact Center Director Device Identifier Shelf Expiration Date Model / Serial / Lot Clareon Iol Aspheric Hydrophobic Acrylic Iol Implanted:Qty: 1 on 04/23/2023 by Cody Gonzalez DO at OR [facility] Lens Left: Eye 11/12/2025 CNA0T0 / [id number] / Viatorr Tips Endoprosthesis 8-10 Mm X 8cm / 2cm Implanted:Qty: 1 on 10/07/2020 by Go Alvarado MD at [facility] Right: Abdomen 03/03/2023 [id number] / / [id number] Description:Viatorr TIPS End oprosthesis 8-10 mm x 8cm / 2cm, Manufactored by [employer] Syr Pf 2ml Embospheres 100-300 - [id number] Implanted:Qty: 1 on 04/18/2021 by Kevin Lim DO at OR [facility] Left: Abdomen [employer] [id number] 11/25/2023 S220GH / / [id number] Lipiodol Injection - [id number] Implanted:Qty: 1 on 03/28/2022 at [facility] [employer] 03/01/2023 56219-64 -2 / [id number] Syr Pf 2ml Embospheres 100-300 - [id number] Implanted:Qty: 1 on 03/28/2022 at [facility] [employer] [id number] 08/31/2024 S220GH / / [id number] -5 Clareon Iol Aspheric Hydrophobic Acrylic Iol Implanted:Qty: 1 on 04/02/2023 by Cody Gonzalez DO at OR [facility] Right: Eye JAZMIN 11/12/2025 CNA0T0 / [id number] 139 / Syr Pf 2ml Embospheres 100-300 - [id number] Implanted:Qty: 1 on 06/11/2024 at [facility] [employer] [id number] 01/02/2027 S220GH / / [id number] -5 Cath Diag Cobra 2 [id number] - [id number] Implanted:Qty: 1 on 06/11/2024 at [facility] [employer] [id number] 10/06/2026 H78 [id number] / / [id number] documented as of this encounter Advance Directives Documents on File Type Date Recorded Patient Priest Expl anation Advance Directives and Living Will 12/11/2022 ADVANCE DIRECTIVE / LIVING WILL LIVING WILL Power of Care Tech 12/11/2022 POWER OF A TTORNEY * [...] Discussed due to patient's condition Care Teams Assembler Dc Field Ring Relationship Specialty Start Date End Date Kristen Vences DO [address] [place] [address] PCP - General Family Medicine 05/19/24 documented as of this encounter
--- OUTSIDE RECORDS SUMMARY | 2024-08-04 05:31 | External Medical Summary ---
Author Name Unknown Address Unknown Organization K01:[facility] [place] [address] [place] [address] Laboratory Report Ordering Provider Test Date Status CHELSEY BISWAS 07/14/2024 10:46:00 Final Observation Date Value Abnormality Reference (Units ) Status Ferritin 07/14/2024 10:46:00 359 30-400 (ng /mL) Final Performing Location [facility] - [address] [facility] [address]
--- OUTSIDE RECORDS SUMMARY | 2024-08-04 05:31 | External Medical Summary | Summary of Care ---
Author Name Unknown Organization [facility] Address [address] [place] [address] Phone [phone] Care Team Providers Care Audio Video Tech Name Role Phone VangieNimco shahid Caryn SANDOVAL Primary Care Provider [phone] Reason for Visit * Reason Comments eRx-Medication Refill Encounter Details Date Type Department Care Team (Late st Contact Info) Description 07/13/2024 Refill Family Practice [facility] [address] [place] [address] Francisco Cisse MD 200 [facility] [place] [address] Allergies No known active allergiesdocumented as of this encounter (statuses as of 07/15/2024) Medications Medication Sig Dispensed Refills Start Date [...] as needed for bladder spasms. 30 Tablet 4 Active Additional Information Patient not taking.Reported on 06/05/2024 Spironolactone 100 MG Oral Tablet (Aldactone) Take 1 Tablet by mouth in the morning. 4 Active Finasteride 5 MG Oral Tablet (Proscar) TAKE 1 TABLET BY MOUTH IN THE MORNING 90 Tablet 1 4 Active Finasteride 5 MG Oral Tablet (Proscar) Take 1 Tablet by mouth in the morning. 90 Tablet 1 3 07/15/20 24 Discontinued documented as of this encounter (statuses as of 07/15/2024) Active Problems Problem Noted Date Diagnosed Date [...] as of this encounter (statuses as of 07/15/2024) Resolved Problems Problem Noted Date Diagnosed Date [...] as of this encounter (statuses as of 07/15/2024) Immunizations Name Administration Dates Next Due COVID-19 mRNA, LNP-s, No Pre serve, 2-Dose Series (Apartment Adda) 03/08/2021,02/15/2021 HepA Inact/HepB Recomb>=18yrs old 12/04/2019,04/2019,05/20/2019 11/19/2019 [...] encounter Miscellaneous Notes * Telephone Encounter - Otilia Larry [facility] - 07/15/2024 5:30 AM EDTSigned Prescriptions: Disp Refills Finasteride 5 MG Oral Tablet (Proscar) 90 Tab*1 Sig: TAKE 1 TABLET BY MOUTH IN THE MORNINGAuthorizing Provider: NIMCO VENCES User: OTILIA LARRY documented in this encounter Plan of Treatment Upcoming Encounters Date Type Department Care Team (Late st Contact Info) Description 07/21/2024 7:00 AM EDT Laboratory [facility] [address] [place] [address] [facility] [address] [place] [address] 07/24/2024 1:40 PM EDT Office Visit Nephrology, [facility] [address] [place] [address] Franki Herbert MD [address] [place] [address] 07/28/2024 7:00 AM EDT Laboratory [facility] [address] [place] [address] [facility] [address] [place] [address] 08/04/2024 7:00 AM EDT Laboratory [facility] [address] [place] [address] [facility] [address] [place] [address] 08/11/2024 7:00 AM EDT Laboratory Lab [facility] [address] [place] [address] [facility] [address] [place] [address] 08/18/2024 7:00 AM EDT Laboratory Lab [facility] [address] [place] [address] [facility] [address] [place] [address] 08/25/2024 7:00 AM EDT Laboratory [facility] [address] [place] [address] [facility] [address] [place] [address] 09/01/2024 7:00 AM EDT Laboratory Lab [facility] [address] [place] [address] [facility] [address] [place] [address] 09/08/2024 7:00 AM EDT Laboratory [facility] [address] [place], [place] [address] [facility] [address] [place], [place] [address] 09/11/2024 3:00 PM EDT Imaging Radiology [address], [place] 132 [facility] [place] [address] 09/15/2024 7:00 AM EDT Laboratory Lab [facility] [address] [place], [place] [address] [facility] [address] [place], [place] [address] 09/22/2024 7:00 AM EDT Laboratory Lab [facility] [address] [place], [place] [address] [facility] [address] [place], [place] [address] 09/29/2024 7:00 AM EDT Laboratory Lab [facility] [address] [place], [place] [address] [facility] [address] [place], [place] [address] 10/06/2024 7:00 AM EST Laboratory Lab [facility] [address] [place], [place] [address] [facility] [address] [place], [place] [address] 10/06/2024 3:30 PM EST Office Visit Hematology/Oncology [place] [address] [place], [place] [phone] Ayaka Tatum CRNP [address] [place] [address] 10/13/2024 7:00 AM EST Laboratory [facility] [address] [place], [place] [address] [facility] [address] [place], [place] [address] 10/14/2024 2:00 PM EST Office Visit Pulmonary Medicine, [facility] [address] [place] [address] Jordan Stanley MD [address] [place] [facility] [place] [address] 10/20/2024 7:00 AM EST Laboratory Lab [facility] [address] [place] [address] [facility] [address] [place] [address] 10/27/2024 7:00 AM EST Laboratory Lab [facility] [address] [place] [address] [facility] [address] [place], [place] [address] 12/03/2024 1:30 PM EST Office Visit Urology Lynnette Fitzpatrick [address] [place] [address] Frank Peraza MD [address] [place] [address] 02/11/2025 2:15 PM EDT Office Visit Ophthalmology, [facility] [address] [place] [address] Cody Gonzalez DO [address] [facility] [place] [address] Scheduled Procedures Name Priority Associated Diagnoses Date/Ti [...] Additional history exists Postponed from 01/17/2024 (Other) GFR 12/31/2024 07/14/2024, 06/03, 06/11/2024, Additional history exists HbA1c 12/31/2024 06/30/2024, 05/0 06/2024, 11/27/2023, Additional history exists Albumin/Creatinine Ratio 05/19/2025 024, 07/12/2023, 10/01/2022, Additional history exists CKD PHOS USE SMARTSET 65827 05/19/202505/02, 05/08/2024, 04/07/2024, Additional history exists Diabetic Foot Exam 05/19/2025 05/19/2024, 0 03/06/2023, 01/03/2022, Additional history exists CKD HGB USE SMARTSET 46119 07/14/202507/14, 07/14/2024, 06/30/2024, Additional history exists Sigmoidoscopy [...] this encounter Medical Devices Implanted Type Area Almond Cutting Machine Tender Device Identifier Shelf Expiration Date Model / Serial / Lot Clareon Iol Aspheric Hydrophobic Acrylic Iol Implanted:Qty: 1 on 04/23/2023 by Cody Gonzalez DO at OR [facility] Lens Left: Eye 11/12/2025 CNA0T0 / [id number] / Viatorr Tips Endoprosthesis 8-10 Mm X 8cm / 2cm Implanted:Qty: 1 on 10/07/2020 by Go Alvarado MD at [facility] Right: Abdomen 03/03/2023 [id number] / / [id number] Description:Viatorr TIPS End oprosthesis 8-10 mm x 8cm / 2cm, Manufactored by [employer] Syr Pf 2ml Embospheres 100-300 - [id number] Implanted:Qty: 1 on 04/18/2021 by Kevin Lim DO at OR [facility] Left: Abdomen [employer] [id number] 11/25/2023 S220GH / / [id number] Lipiodol Injection - [id number] Implanted:Qty: 1 on 03/28/2022 at [facility] [employer] 03/01/2023 [id number] 01-2 / / [id number] Syr Pf 2ml Embospheres 100-300 - [id number] Implanted:Qty: 1 on 03/28/2022 at [facility] [employer] [id number] 08/31/2024 S220GH / / [id number] -[id number] Clareon Iol Aspheric Hydrophobic Acrylic Iol Implanted:Qty: 1 on 04/02/2023 by Cody Gonzalez DO at OR [facility] Right: Eye JAZMIN 11/12/2025 CNA0T0 / [id number] / Syr Pf 2ml Embospheres 100-300 - [id number] Implanted:Qty: 1 on 06/11/2024 at [facility] [employer] [id number] 01/02/2027 S220GH / / [id number] Cath Diag Cobra 2 [id number] - [id number] Implanted:Qty: 1 on 06/11/2024 at [facility] [employer] [id number] 10/06/2026 H78 [id number] / / [id number] documented as of this encounter Advance Directives Documents on File Type Date Recorded Patient Sr Community Manager Expl anation Advance Directives and Living Will 12/11/2022 ADVANCE DIRECTIVE / LIVING WILL LIVING WILL Power of Neurology Physician 12/11/2022 POWER OF A TTORNEY * Full [...] Discussed due to patient's condition Care Teams Audio Video Tech Relationship Specialty Start Date End Date Nimco Vences DO [address] [place] [address] PCP - General Family Medicine 05/19/24 documented as of this encounter
--- OUTSIDE RECORDS SUMMARY | 2024-08-04 05:31 | External Medical Summary ---
Author Name Unknown Address Unknown Organization K01:[facility] [place] [address] [facility] [place] [address] Laboratory Report Ordering Provider Test Date Status CHELSEY BISWAS 07/14/2024 10:46:00 Final Observation Date Value Abnormality Reference (Units ) Status BUN 07/14/2024 10:46:00 30 Above high normal 6-20 (mg/dL) Final Creatinine 07/14/2024 10:46:00 1.3 Above high normal 0.6-1.2 (mg/dL) Final Glomerular filtration rate/1.73 sq M.predicted [Volume Rate/Area] in Serum, Plasma or Blood by Creatinine-based formula (CKD-EPI) 07/14/2024 10:46:00 58 Below low normal >=60 (mL/min) Final eGFR is calculated based on the CKD-EPI 2020 equation. Sodium 07/14/2024 10:46:00 139 135-146 (m mol/L) Final Potassium 07/14/2024 10:46:00 4.5 3.5-5.1 (m mol/L) Final Cl 07/14/2024 10:46:00 112 Above high normal 98 -107 (mmol/L) Final CO2 07/14/2024 10:46:00 18 Below low normal 22- 32 (mmol/L) Final Anion gap 07/14/2024 10:46:00 9 7-15 (mmol /L) Final Glucose 07/14/2024 10:46:00 267 Above high normal 70 -120 (mg/dL) Final Albumin 07/14/2024 10:46:00 2.9 Below low normal 3.8 -5.0 (g/dL) Final AST (Aspartate aminotransferase) 07/14/2024 10:46:00 41 10-50 (U/L) Fin al Alk Phos 07/14/2024 10:46:00 160 Above high normal 35 -130 (U/L) Final Bilirubin, Total 07/14/2024 10:46:00 2.1 Above high no rmal <=1.2 (mg/dL) Final Calcium 07/14/2024 10:46:00 7.9 Below low normal 8.4 -10.2 (mg/dL) Final Protein 07/14/2024 10:46:00 5.6 Below low normal 6.0 -8.3 (g/dL) Final ALT (Alanine aminotransferase) 07/14/2024 10:46:00 23 10-50 (U/L) Layo dye Performing Location [facility] [place] [facility] [address] [facility] [place] [address]
--- OUTSIDE RECORDS SUMMARY | 2024-08-04 05:31 | External Medical Summary | Summary of Care ---
Author Name Unknown Organization [facility] Address [address] [place] [address] Phone [phone] Care Team Providers Care Director Telemetry Name Role Phone Vangie Kristenlang Rubin DO Primary Care Provider [phone] Reason for Visit * Reason Onset Date Comments Advice 07/16/2024 Encounter Details Date Type Department Care Team (Late st Contact Info) Description 07/16/2024 Telephone Access Center, [address] *DO NOT REMOVE THIS DEPARTMENT* [place] [address] Services, Scheduling [address] [place] [address] Advice Allergies No known active allergiesdocumented as [...] LNP-s, No Pre serve, 2-Dose Series (Mobile Media Content) 03/08/2021,02/15/2021 HepA Inact/HepB Recomb>=18yrs old 12/04/2019,04/2019,05/20/2019 11/19/2019 PPD 06/18/2017, 3,01/09/2012,06/2011 Pneumococcal Conjugate Vacc, 13 Valent (Prevnar) 05/01/2017 Pneumococcal Polysaccharide PPV23 (Pneumovax) 08/28/2022,10/25/2015,07/14/2012 Season Influenza, Quad, PF, Adjuvanted, 65+ Yrs, IM (FLUAD) 10/07/2020(Deferred: Patient Refused - pt says he already had his shot last [facility] at [facility] Handy Lyons and Mckinley Cobian made aware) [...] No 08/14/2023 Does the household have a [facility] memorial hospitall[facility] source of income? (Household - for [...] encounter Miscellaneous Notes * Telephone Encounter - Jospehine Murphy RN - 07/16/2024 11:19 AM EDT Asm spoke to Krista. * Telephone Encounter - Rachel Diehl OSA - 07/16/2024 10:20 AM EDT Krista López from [facility] calling to speak with Pari. She can be reached at [phone] or through Video[employer]at[employer]. documented in this encounter Plan of Treatment Upcoming Encounters Date Type Department Care Team (Late st Contact Info) Description 07/21/2024 7:00 AM EDT Laboratory Lab [facility] [address] [place] [address] [facility] [address] [place] [address] 07/24/2024 1:40 PM EDT Office Visit George Garcia [address] [place] [address] Franki Herbert MD [address] [place] [address] [address] 07/28/2024 7:00 AM EDT Laboratory [facility] [address] [place] [address] [facility] [address] [place] [address] 08/04/2024 7:00 AM EDT Laboratory Lab [facility] [address] [place] [address] [facility] [address] [place] [address] 08/11/2024 7:00 AM EDT Laboratory Lab [facility] [address] [place] [address] [facility] [address] [place] [address] 08/18/2024 7:00 AM EDT Laboratory Lab [facility] [address] [place] [address] [facility] [address] [place] [address] 08/25/2024 7:00 AM EDT Laboratory Lab [facility] [address] [place] [address] [facility] [address] [place] [address] 09/01/2024 7:00 AM EDT Laboratory Lab [facility] [address] [place] [address] [facility] [address] [place] [address] 09/08/2024 7:00 AM EDT Laboratory Lab [facility] [address] [place] [address] [facility] [address] [place] [address] 09/11/2024 3:00 PM EDT Imaging Radiology [address] 132 [facility] [place] [address] 09/15/2024 7:00 AM EDT Laboratory Lab [facility] [address] [place], [place] [address] [facility] [address] [place], [place] [address] 09/22/2024 7:00 AM EDT Laboratory Lab [facility] [address] [place], [place] [address] [facility] Draw [address] [place], [place] [address] 09/29/2024 7:00 AM EDT Laboratory Lab [facility] [address] [place] [address] [facility] Draw [address] [place], [place] [address] 10/06/2024 7:00 AM EST Laboratory Lab [facility] [address] [place], [place] [address] [facility] Draw [address] [place], [place] [address] 10/06/2024 3:30 PM EST Office Visit Hematology/Oncology [facility] 200 [facility] [place], [place] [phone] Ayaka Tatum CRNP [address] [place] [address] [place] [address] 10/13/2024 7:00 AM EST Laboratory Lab [facility] [address] [place], [place] [address] [facility] Draw [address] [place] [address] 10/14/2024 2:00 PM EST Office Visit Pulmonary Medicine, [facility] [address] [place] [address] Jordan Stanley MD [address] [place] [address] 10/20/2024 7:00 AM EST Laboratory Lab [facility]bot[facility] [address] [facility], [place] [address] [facility], [facility] Draw [address] [facility], [place] [address] 10/27/2024 7:00 AM EST Laboratory Lab [facility] [address] [facility], [place] [address] [facility], [facility] Draw [address] [facility] [place], [place] [address] 12/03/2024 1:30 PM EST Office Visit Urology Lynnette Fitzpatrick [address] [place] [address] Frank Peraza MD [address] [place] [address] 02/11/2025 2:15 PM EDT Office Visit Ophthalmology, [facility] [address] [place] [address] Cody Gonzalez DO [facility] [place] [address] Scheduled Procedures Name Priority Associated Diagnoses Date/Ti [...] Postponed from 01/17/2024 (Other) HbA1c 12/31/2024 06/30/2024, 050 06/2024, 11/27/2023, Additional history exists GFR 01/14/2025 07/14/2024, 06/03, 06/11/2024, Additional history exists Albumin/Creatinine Ratio 05/19/2025 024, 07/12/2023, 10/01/2022, Additional history exists CKD PHOS USE SMARTSET 24143 05/19/202505/02, 05/08/2024, 04/07/2024, Additional history exists Diabetic Foot Exam 05/19/2025 05/19/2024, 0 03/06/2023, 01/03/2022, Additional history exists CKD HGB USE SMARTSET 98432 07/14/202507/14, 07/14/2024, 06/30/2024, Additional history exists Sigmoidoscopy [...] this encounter Medical Devices Implanted Type Area Biophysics Scientist Device Identifier Shelf Expiration Date Model / Serial / Lot Clareon Iol Aspheric Hydrophobic Acrylic Iol Implanted:Qty: 1 on 04/23/2023 by Cody Gonzalez DO at OR [facility] Lens Left: Eye 11/12/2025 CNA0T0 / [id number] / Viatorr Tips Endoprosthesis 8-10 Mm X 8cm / 2cm Implanted:Qty: 1 on 10/07/2020 by Go Alvarado MD at [facility] Right: Abdomen 03/03/2023 [id number] / / [id number] Description:Viatorr TIPS End oprosthesis 8-10 mm x 8cm / 2cm, Manufactored by [employer] Syr Pf 2ml Embospheres 100-300 - [id number] Implanted:Qty: 1 on 04/18/2021 by Kevin Lim DO at OR [facility] Left: Abdomen [employer] [id number] 11/25/2023 S220GH / / [id number] Lipiodol Injection - [id number] Implanted:Qty: 1 on 03/28/2022 at [facility] [employer] 03/01/2023 [id number] 01-2 / / [id number] Syr Pf 2ml Embospheres 100-300 - [id number] Implanted:Qty: 1 on 03/28/2022 at [facility] [employer] [id number] 08/31/2024 S220GH / / [id number] -[id number] Clareon Iol Aspheric Hydrophobic Acrylic Iol Implanted:Qty: 1 on 04/02/2023 by Cody Gonzalez DO at [facility] Right: Eye [employer] 11/12/2025 CNA0T0 / [id number] / Syr Pf 2ml Embospheres 100-300 - [id number] Implanted:Qty: 1 on 06/11/2024 at [facility] [employer] [id number] 01/02/2027 S220GH / / [id number] Cath Diag Cobra 2 [id number] - [id number] Implanted:Qty: 1 on 06/11/2024 at [facility] [employer] [id number] 10/06/2026 H78 [id number] / / [id number] documented as of this encounter Advance Directives Documents on File Type Date Recorded Patient Camera Storage Clerk Expl anation Advance Directives and Living Will 12/11/2022 ADVANCE DIRECTIVE / LIVING WILL LIVING WILL Power of Weight Loss Sales Consultant 12/11/2022 POWER OF A TTORNEY * Full [...] Discussed due to patient's condition Care Teams Director Telemetry Relationship Specialty Start Date End Date Kristen Vences DO [address] [place] [address] PCP - General Family Medicine 05/19/24 documented as of this encounter
--- OUTSIDE RECORDS SUMMARY | 2024-08-04 05:31 | External Medical Summary | Summary of Care ---
Author Name Unknown Organization [facility] Address [address] [facility] [address] Phone [phone] Care Team Providers Care Research Environmental Scientist Name Role Phone Kristen Vences Primary Care Provider [phone] Reason for Visit * Reason Onset Date Comments Test Results 07/15/2024 Hgb Encounter Details Date Type Department Care Team (Late st Contact Info) Description 07/15/2024 Telephone Hematology/Oncology George Blankenship [place] [address] [place] [phone] Ayaka Tatum CRNP 400 [facility] [place] [address] Test Results (Hgb) Allergies No known active allergiesdocumented as of [...] [facility]ian made aware) Seasonal Influenza [...] on file Are you (or your family) toemr eless or worried that you might be [...] Telephone Encounter - Pari Cobian LPN - 07/16/2024 8:45 AM EDT Called and spoke with patient, reviewed lab results with patient; Hgb 7.9 Patient is agreeable to having a blood transfusion. Patient to receive 1 unit prbc. Called [facility] blood bank. Spoke with Cornel. Spoke with Krista at [facility]. Called [facility] central scheduling. Patient scheduled for Today at 11:00 am. Patient verbalized understanding of appt time. Faxed order to [facility]/ blood bank. Consent expires 08/11/2024 * Telephone Encounter - Ayaka Tatum CRNP [...] he would like to schedule appointment at [facility] for oneunit of PRBC. Thank you! documented in this encounter Plan of Treatment Upcoming Encounters Date Type Department Care Team (Late st Contact Info) Description 07/21/2024 7:00 AM EDT Laboratory Lab [facility] [address] [place] [address] [facility] [address] [address] 07/24/2024 1:40 PM EDT Office Visit Nephrology, George Blankenship [address] [place] [address] Franki Herbert MD [address] [address] 07/28/2024 7:00 AM EDT Laboratory Lab [facility] [address] [place] [address] M[facility] [address] [employer] [place] [address] 08/04/2024 7:00 AM EDT Laboratory Lab [facility] [address] [address] M[facility] [address] [address] 08/11/2024 7:00 AM EDT Laboratory Lab [facility] Ph[facility]bot[facility] [address] [address] M[facility] [address] [place], [place] [address] 08/18/2024 7:00 AM EDT Laboratory [facility] [address] [place], [place] [address] M[facility] [address] [place] [address] 08/25/2024 7:00 AM EDT Laboratory Lab [facility]le[facility] [address] [place] [address] M[facility], [facility] [address] [place], [place] [address] 09/01/2024 7:00 AM EDT Laboratory [facility] [address] [place], [place] [address] Mvmg, [facility] [address] [place], [place] [address] 09/08/2024 7:00 AM EDT Laboratory Lab [facility] [address] [place], [place] [address] Mv[facility], [facility] [address] [place], [place] [address] 09/11/2024 3:00 PM EDT Imaging Radiology [address], [address] [place] [address] 09/15/2024 7:00 AM EDT Laboratory Lab [facility]lebotomy [facility] [address] [place], [place] [address] Mv[facility], [facility] [address] [place], [place] [address] 09/22/2024 7:00 AM EDT Laboratory Lab [facility] Phlebotomy [facility] [address] [place], [place] [address] Mv[facility], [facility] Draw [address] [place], [place] [address] 09/29/2024 7:00 AM EDT Laboratory Lab [facility] Phlebotomy [facility] [address] [place], [place] [address] Mvmg, [facility] Draw [address] [place] [address] [place], [place] [address] 10/06/2024 7:00 AM EST Laboratory Lab [facility]lebot[facility] [address] [place], [place] [address] Mv[facility], [facility] [address] [place] [address] [place], [place] [address] 10/06/2024 3:30 PM EST Office Visit Hematology/Oncology [facility] 200 [facility], [place] [id number] Ayaka Tatum, JEFF 400 [facility] [place] [address] 10/13/2024 7:00 AM EST Laboratory Lab Mobile Phlebotomy [facility] [address] [place], [place] [address] M[facility], [facility] Draw 2520 [facility] [place], [place] [address] 10/14/2024 2:00 PM EST Office Visit Pulmonary Medicine, [facility] 132 [facility] [place] [address] Jordan Stanley MD [address] [facility] [address] 10/20/2024 7:00 AM EST Laboratory Lab Mobile Phlebotomy [facility] [address] [place], [place] [address] Mvmg, [facility] [address] [place], [place] [address] 10/27/2024 7:00 AM EST Laboratory Lab [facility] Phlebotomy [facility] [address] [place], [place] [address] M[facility], [facility] [address] [place], [place] [address] 12/03/2024 1:30 PM EST Office Visit Urology Lynnette Fitzpatrick [address] [place] [address] [address] Frank Peraza MD [address] [place] [address] 02/11/2025 2:15 PM EDT Office Visit Ophthalmology, [facility] 132 [facility] [place] [address] Cody Gonzalez, DO [facility] [place] [address] Scheduled Procedures Name Priority Associated Diagnoses Date/Ti [...] Additional history exists CKD PHOS USE SMARTSET 41319 05/19/2025 0607/2024, 05/08/2024, 04/07/2024, Additional history exists Diabetic Foot Exam 05/19/2025 05/19/2024, 0 03/06/2023, 01/03/2022, Additional history exists CKD HGB USE SMARTSET 65341 07/14/202507/14, 07/14/2024, 06/30/2024, Additional history exists Sigmoidoscopy [...] this encounter Medical Devices Implanted Type Area Spa Experience Coordinator Device Identifier Shelf Expiration Date Model / Serial / Lot Clareon Iol Aspheric Hydrophobic Acrylic Iol Implanted:Qty: 1 on 04/23/2023 by Cody Gonzalez DO at OR [facility] Lens Left: Eye 11/12/2025 CNA0T0 / [id number] / Viatorr Tips Endoprosthesis 8-10 Mm X 8cm / 2cm Implanted:Qty: 1 on 10/07/2020 by Go Alvarado MD at [facility] Right: Abdomen 03/03/2023 [id number] / / [id number] Description:Viatorr TIPS End oprosthesis 8-10 mm x 8cm / 2cm, Manufactored by [employer] Syr Pf 2ml Embospheres 100-300 - [id number] Implanted:Qty: 1 on 04/18/2021 by Kevin Lim DO at OR [facility] Left: Abdomen [employer] [id number] 11/25/2023 S220GH / / [id number] Lipiodol Injection - [id number] Implanted:Qty: 1 on 03/28/2022 at [facility] [employer] 03/01/2023 [id number] 01-2 / / [id number] Syr Pf 2ml Embospheres 100-300 - [id number] Implanted:Qty: 1 on 03/28/2022 at [facility] [employer] [id number] 08/31/2024 S220GH / / [id number] Clareon Iol Aspheric Hydrophobic Acrylic Iol Implanted:Qty: 1 on 04/02/2023 by Cody Gonzalez DO at OR [facility] Right: Eye JAZMIN 11/12/2025 CNA0T0 / [id number] / Syr Pf 2ml Embospheres 100-300 - [id number] Implanted:Qty: 1 on 06/11/2024 at [facility] [employer] [id number] 01/02/2027 S220GH / / [id number] Cath Diag Cobra 2 [id number] - [id number] Implanted:Qty: 1 on 06/11/2024 at [facility] [employer] [id number] 10/06/2026 H78 [id number] / / [id number] documented as of this encounter Advance Directives Documents on File Type Date Recorded Patient Slate Roofer Helper Expl anation Advance Directives and Living Will 12/11/2022 ADVANCE DIRECTIVE / LIVING WILL LIVING WILL Power of Craft Demonstrator 12/11/2022 POWER OF A TTORNEY * Full [...] Discussed due to patient's condition Care Teams Research Environmental Scientist Relationship Specialty Start Date End Date Kristen Vences DO [address] [place] [address] [address] PCP - General Family Medicine 05/19/24 documented as of this encounter
--- OUTSIDE RECORDS SUMMARY | 2024-08-04 05:31 | External Medical Summary ---
Author Name Unknown Address Unknown Organization K01:LABORATORY C - [address] [place] [address] Laboratory Report Ordering Provider Test Date Status CHELSEY BISWAS 07/14/2024 10:46:00 Final Observation Date Value Abnormality Reference (Units ) Status Iron 07/14/2024 10:46:00 125 45-176 (ug/dL) Final Iron-binding capacity 07/14/2024 10:46:00 125 Below low normal 250-425 (ug/dL) Final Transferrin Sat % 07/14/2024 10:46:00 100 Above high normal 15-55 (%) Final Performing Location [facility] - [address] [place] [address]
--- OUTSIDE RECORDS SUMMARY | 2024-08-04 05:31 | External Medical Summary ---
Author Name Unknown Address Unknown Organization K01:LABORATORY [facility] - [address] [facility] [address] Laboratory Report Ordering Provider Test Date Status CHELSEY BISWAS 07/14/2024 10:46:00 Final Observation Date Value Abnormality Reference (Units ) Status SYNC LEUKOCYTES IN BLOOD BY AUTOMATED COUNT 07/14/2024 10:46:00 2.36 Below low normal 4.00-10.80 (K/uL) Final Segs 07/14/2024 10:46:00 61.9 40.0-75.0 (%) Final Lymphs % 07/14/2024 10:46:00 20.8 18.0-42.0 (%) Final Monos 07/14/2024 10:46:00 5.5 1.0-11.0 (%) Final Eosinophils 07/14/2024 10:46:00 8.9 Above high normal 0.0-6.0 (%) Final Basos 07/14/2024 10:46:00 0.8 0.0-2.0 (%) Final Immature Granulocyte, Percent 07/14/2024 10:46:00 2.1 Above high normal 0.0-2.0 (%) Final Absolute Segs 07/14/2024 10:46:00 1.46 Below low normal 1.80-7.70 (K/uL) Final Lymphs, absolute 07/14/2024 10:46:00 0.49 Below low normal 1.00-4.80 (K/ul) Final Monos, Abs 07/14/2024 10:46:00 0.13 0.00-1.10 (K/uL) Final Eos, Abs 07/14/2024 10:46:00 0.21 0.00-0.70 (K/uL) Final Basos, Abs 07/14/2024 10:46:00 0.02 0.00-0.20 (K/uL) Final Immature Granulocytes, Number 07/14/2024 10:46:00 0.05 0.00-0.20 (K/uL) Final Performing Location LABORATORY [facility] - [facility] [address] [facility] [address]
--- OUTSIDE RECORDS SUMMARY | 2024-08-04 05:31 | External Medical Summary ---
Author Name Unknown Address Unknown Organization K01:LABORATORY [facility] - [facility] [address] [facility] [address] [facility] [address] Laboratory Report Ordering Provider Test Date Status CHELSEY BISWAS 07/14/2024 10:46:00 Final Observation Date Value Abnormality Reference (Units ) Status WBC, Total 07/14/2024 10:46:00 2.36 Below low normal 4.00-10.80 (K/uL) Final RBC 07/14/2024 10:46:00 2.39 4.50-5.25 (M/uL) Final Hemoglobin 07/14/2024 10:46:00 7.9 Below low normal 14.0-16.8 (g/dL) Final HCT 07/14/2024 10:46:00 24.1 Below low normal 40.0-48.4 (%) Final MCV 07/14/2024 10:46:00 100.8 82.0-99.5 (fL) Final MCH 07/14/2024 10:46:00 33.1 27.0-34.0 (pg) Final MCHC 07/14/2024 10:46:00 32.8 32.0-36.0 (g/dL) Final RDW 07/14/2024 10:46:00 22.6 11.5-15.5 (%) Final Platelets 07/14/2024 10:46:00 72 Below low normal 140-400 (K/uL) Final MPV 07/14/2024 10:46:00 12.6 6.6-11.1 (fL) Final Nucleated erythrocytes/100 leukocytes [Ratio] in Blood by Automated count 07/14/2024 10:46:00 1 Above high normal <=0 (/100 WBCs) Final Performing Location LABORATORY [facility] - [address] [facility] [address]
--- OUTSIDE RECORDS SUMMARY | 2024-08-04 05:31 | External Medical Summary | Summary of Care ---
Author Name Unknown Organization [facility] Address [address] [facility] [place] [address] Phone [phone] Care Team Providers Care Furniture Finisher Apprentice Name Role Phone VangieKristen shahid Caryn SANDOVAL Primary Care Provider [phone] Encounter Details Date Type Department Care Team (Late st Contact Info) Description 07/15/2024 Telephone Hematology/Oncology George Blankenship [place] 200 [facility] [address] Ayaka Tatum CRNP 400 [place] [address] Allergies No known active allergiesdocumented as [...] he would like to schedule appointment at [facility] for oneunit of PRBC. Thank you! documented in this encounter Plan of Treatment Upcoming Encounters Date Type Department Care Team (Late st Contact Info) Description 07/21/2024 7:00 AM EDT Laboratory Lab Mobile Phlebotomy [facility] [address] [place] [address] Mvmg, Gml [facility] Draw [address] [place], [place] [address] 07/24/2024 1:40 PM EDT Office Visit Nephrology, George Blankenship [address] [place] [address] Franki Herbert MD [address] [place] [address] 07/28/2024 7:00 AM EDT Laboratory Lab Mobile Phlebotomy [facility] [address] [employer] [address] [place], [place] [address] Mvmg, Gml [facility] Home Draw [address] [place], [place] [address] 08/04/2024 7:00 AM EDT Laboratory Lab Mobile Phlebotomy [facility] [address] [place] [address] Mvmg, Gml [facility] Draw [address] [place] [address] 08/11/2024 7:00 AM EDT Laboratory Lab Mobile Phlebotomy [facility] [address] [employer] [place] [address] Mvmg, Gml [facility] Draw [address] [place] [address] 08/18/2024 7:00 AM EDT Laboratory Lab Mobile Phlebotomy [facility] [address] [place] [address] Mvmg, Gml Mobile Home Draw [address] [place] [address] 08/25/2024 7:00 AM EDT Laboratory Lab Mobile Phlebotomy [facility] [address] [place] [address] Mvmg, Gml [facility] Draw [address] [place] [address] 09/01/2024 7:00 AM EDT Laboratory Lab Mobile Phlebotomy [facility] [address] [place], [place] [address] Mvmg, Gml [facility] Home Draw [address] [place], [place] [address] 09/08/2024 7:00 AM EDT Laboratory Lab Mobile Phlebotomy [facility] [address] [place], [place] [address] Mvmg, Gml Mobile Home Draw [address] [employer] [place], [place] [address] 09/11/2024 3:00 PM EDT Imaging Radiology [address], [place] 132 [facility] [place] [address] 09/15/2024 7:00 AM EDT Laboratory Lab Mobile Phlebotomy [facility] [address] [employer] [address] [place], [place] [address] Mvmg, Gml Mobile Home Draw [address] [place], [place] [address] 09/22/2024 7:00 AM EDT Laboratory Lab Mobile Phlebotomy [facility] [address] [employer] [address] [place], [place] [address] Mvmg, Gml Mobile Home Draw [address] [place] [address] 09/29/2024 7:00 AM EDT Laboratory Lab Mobile Phlebotomy [facility] [address] [employer] [address] [place], [place] [address] Mvmg, Gml Mobile Home Draw [address] [place] [address] 10/06/2024 7:00 AM EST Laboratory Lab Mobile Phlebotomy [facility] [address] [employer] [address] [place], [place] [address] Mvmg, Gml Mobile Home Draw [address] [place], [place] [address] 10/06/2024 3:30 PM EST Office Visit Hematology/Oncology [facility] [place] 200 [facility] [place], [place] [phone] Ayaka Tatum CRNP [address] [place] [address] [place] Becerra [id number] 10/13/2024 7:00 AM EST Laboratory Lab Mobile Phlebotomy [facility] [address] [place], [place] [address] Mvmg, Gml [facility] Draw [address] [place] [address] 10/14/2024 2:00 PM EST Office Visit Pulmonary Medicine, [facility] 132 [facility] [place] [address] Jordan Stanley MD [address] [address] 10/20/2024 7:00 AM EST Laboratory Lab Mobile Phlebotomy [facility] [address] [place] [address] Mvmg, Gml Mobile Home Draw 2520 [facility], [place] [address] 10/27/2024 7:00 AM EST Laboratory Lab Mobile Phlebotomy [facility] [address] [place], [place] [address] Mvmg, Gml Mobile Home Draw 2520 [facility], [place] [address] 12/03/2024 1:30 PM EST Office Visit Urology Lynnette Fitzpatrick [address] [place] [address] [address] Frank Peraza MD [address] [place] [address] 02/11/2025 2:15 PM EDT Office Visit Ophthalmology, [facility] 132 [facility] [place] [address] Cody Gonzalez DO [address] [place] [address] Scheduled Procedures Name Priority Associated Diagnoses Date/Ti [...] Additional history exists CKD PHOS USE SMARTSET 07158 05/19/202505/02, 05/08/2024, 04/07/2024, Additional history exists Diabetic Foot Exam 05/19/2025 05/19/2024, 0 03/06/2023, 01/03/2022, Additional history exists CKD HGB USE SMARTSET 76279 07/14/202507/14, 07/14/2024, 06/30/2024, Additional history exists Sigmoidoscopy [...] this encounter Medical Devices Implanted Type Area Board Attendant Device Identifier Shelf Expiration Date Model / Serial / Lot Clareon Iol Aspheric Hydrophobic Acrylic Iol Implanted:Qty: 1 on 04/23/2023 by Cody Gonzalez DO at OR [facility] Lens Left: Eye 11/12/2025 CNA0T0 / [id number] / Viatorr Tips Endoprosthesis 8-10 Mm X 8cm / 2cm Implanted:Qty: 1 on 10/07/2020 by Go Alvarado MD at [facility] Right: Abdomen 03/03/2023 [id number] / / [id number] Description:Viatorr TIPS End oprosthesis 8-10 mm x 8cm / 2cm, Manufactored by [employer] Syr Pf 2ml Embospheres 100-300 - [id number] Implanted:Qty: 1 on 04/18/2021 by Kevin Lim DO at OR [facility] Left: Abdomen [employer] [id number] 11/25/2023 S220GH / / [id number] Lipiodol Injection - [id number] Implanted:Qty: 1 on 03/28/2022 at [facility] [employer] 03/01/2023 20205-79 -2 / [id number] Syr Pf 2ml Embospheres 100-300 - [id number] Implanted:Qty: 1 on 03/28/2022 at [facility] [employer] [id number] 08/31/2024 S220GH / / [id number] -5 Clareon Iol Aspheric Hydrophobic Acrylic Iol Implanted:Qty: 1 on 04/02/2023 by Cody Gonzalez DO at OR [facility] Right: Eye [employer] 11/12/2025 CNA0T0 / [id number] 139 / Syr Pf 2ml Embospheres 100-300 - [id number] Implanted:Qty: 1 on 06/11/2024 at [facility] [employer] [id number] 01/02/2027 S220GH / / [id number] -5 Cath Diag Cobra 2 [id number] - [id number] Implanted:Qty: 1 on 06/11/2024 at [facility] [employer] [id number] 10/06/2026 H78 01660 [id number] / / [id number] documented as of this encounter Advance Directives Documents on File Type Date Recorded Patient Coding Compliance Manager Expl anation Advance Directives and Living Will 12/11/2022 ADVANCE DIRECTIVE / LIVING WILL LIVING WILL Power of Carpet Jack 12/11/2022 POWER OF A TTORNEY * Full [...] Discussed due to patient's condition Care Teams Furniture Finisher Apprentice Relationship Specialty Start Date End Date Kristen Vences DO [address] [address] [address] PCP - General Family Medicine 05/19/24 documented as of this encounter
[2024-08-04 06:01] LABS: iSTAT Creatinine 1.2 mg/dl (0.6-1.3); iSTAT Hemoglobin 8.8 g/dl (14.0-18.0); iSTAT Ionized Calcium 1.2 mmol/l (1.12-1.32); iSTAT Potassium 4.5 mmol/L (3.3-5.0)
[2024-08-04] MEDS: LORazepam 1 MG/1 ML SYR ED Inj Use IV STA (06:10)
[2024-08-04 06:15] LABS: Basophils # (auto) 0.01 K/uL (0.00-0.20); Basophils % (auto) 0.4 %; Eosinophils # (auto) 0.18 K/uL (0.00-0.50); Eosinophils % (auto) 6.8 %; Hematocrit (blood only) 28.1 % (42.0-52.0); Hemoglobin 9.6 g/dl (14.0-18.0); Immature Granulocytes # (auto) 0.06 K/uL (0.01-0.20); Immature Granulocytes % (auto) 2.3 %; Lymphocytes # (auto) 0.58 K/uL (1.20-3.40); Lymphocytes % (auto) 22.1 %; Mean Corpuscular Hgb Conc 34.2 g/dL (32.0-36.0); Mean Corpuscular Volume 96.6 fL (80.0-100.0); Monocytes # (auto) 0.15 K/uL (0.11-0.59); Monocytes % (auto) 5.7 %; Neutrophils # (auto) 1.65 K/uL (1.40-6.50); Neutrophils % (auto) 62.7 %; Platelet Count 76 K/uL (130-400); RDW Coefficient of Variation 18.6 % (11.5-14.5); RDW Standard Deviation 66.1 fL (36.4-46.3); Red Blood Count 2.91 M/uL (4.70-6.10); White Blood Count 2.63 K/ul (4.8-10.8)
[2024-08-04 06:16] LABS: Albumin Globulin Ratio 0.8 (0.9-2); BUN Creatinine Ratio 18.9 (10-20); Bilirubin,Total 3.3 mg/dl (0.2-1.0); Calcium 8.5 mg/dl (8.6-10.3); Creatinine Clr Calc Pharmacy 54.8 ml/min; Est GFR (African American) 67.3 ml/min; Globulin 3.6 gm/dl (2.5-4.0); Potassium 4.4 mmol/L (3.5-5.1); Total Protein 6.6 gm/dl (6.0-8.3)
[2024-08-04 06:22] LABS: Troponin I High Sensitivity 18.7 pg/ml (0-20)
[2024-08-04 06:25] LABS: INR 1.2 (0.9-1.1); Prothrombin Time 12.4 Seconds (9.0-12.0)
--- NOTE | 2024-08-04 06:56 | CT Scan Report ---
CT head/brain wo con CLINICAL HISTORY: 74 years-old Male with Trauma. Acute head trauma TECHNIQUE: Multiple axial CT images of the head were obtained without contrast. A dose lowering tech nique was utilized adhering to the principles of ALARA. COMPARISON: 07/05/2024 FINDINGS: No acute intracranial hemorrhage, midline shift, intracranial mass, hydrocephalus, territorial ischem ia or abnormal extra-axial collection. Involutional changes with mild chronic microvascular ischemic disease. Cerebral vascular calcifications. The calvarium is intact. Mild mucosal thickening of the paranasal sinuses. Dental caries. Mastoid ai r cells are clear. Prior bilateral lens repair. IMPRESSION: No acute intracranial abnormality or calvarial fracture. ACT 112: Negative or not required by law. The above report was generated using voice recognition software. It may contain grammatical, syntax o r spelling errors. Electronically signed by: Yovany Gonzalez M.D. 08/04/2024 6:54 AM
--- NOTE | 2024-08-04 06:57 | Emergency Department Note ---
Impression & Plan Altered mental status, CHI (closed head injury), Contusion of right hip, Hematuria, Hyperammonemia ED Provider Note ED Provider Note NAME: MERRITT TAPIA AGE:74 SEX: Male : 1950 ARRIVES VIA: EMS INFORMANT: Patient ED PROVIDER(s): Melody Almanza DO CHIEF COMPLAINT: Altered mental status, fall HPI: This is a 74-year-old male brought in by EMS after concern for increased confusion following a fall at home. EMS states patient attempted to get up off the couch and when she was sleeping to go to the bathroom and fell. EMS states the floor in the living room where he was on the couch is made of hardwood. Family felt patient was more confused following the fall and called 911. Patient does have a history of frequent falls and frequent episodes of confusion due to a history of cirrhosis and hepatic encephalopathy. Patient here knows his name and knows he is at [facility], cannot answer any other questions of orientation. Patient cannot provide any additional history. PAST MEDICAL HISTORY:See Below PAST SURGICAL HISTORY:See Below FAMILY HISTORY:See Below SOCIAL HISTORY:See Below HOME MEDICATIONS:See Below ALLERGIES:See Below VITALS:See Below PHYSICAL EXAMINATION: GENERAL: alert, well appearing, well nourished, no distress, non-toxic HEAD: nc, superficial small contusion noted left superior forehead, no other evidence of facial trauma, no mcintosh signs, no raccoon eyes EYE EXAM: normal conjunctiva, PERRL and EOM's grossly intact OROPHARYNX: no exudate, no erythema, lips, buccal mucosa, and tongue normal and mucous membranes are dry NECK: supple, no nuchal rigidity, no adenopathy, non-tender LUNGS: Clear to auscultation. Normal chest wall mechanics, no w/r/r HEART: no murmurs, S1 normal and S2 normal CHEST WALL: No crepitus, no pain with palpation, no evidence of trauma ABDOMEN: abdomen soft, non-tender, normo-active bowel sounds, no masses, no rebound or guarding. BACK: Back is symmetrical on inspection and there is no deformity, no midline tenderness, no CVA tenderness. SKIN: no rashes, petechiae, orbruising UPPER EXTREMITIES: upper extremities are grossly normal. FROM, nml pulses b/l. Small contusion noted to dorsal right forearm approximately 2 cm, no other evidence of trauma or deformity. LOWER EXTREMITIES: No pitting edema. FROM, nml pulses b/l. Contusion noted over right lateral hip, no other evidence of trauma or deformity. NEURO EXAM: Confused, cranial nerves II-XII grossly intact, normal speech, no facial droop,patient moving all extremities spontaneously, would not cooperate for additional neurotesting Vital Signs: reviewed and remarkable Differential Diagnosis: ich, cva, lucretia, dehydration, occult fracture, hemoperitoneum, occult infection, as well as others were considered MEDICAL DECISION MAKING: This is a 74 yo male who presents to the ER via EMS after an accidental fall at home while trying to get up off the couch. Family felt he was more confused after this event. Labs drawn and sent, IV established, EKG and xrays performed and interpreted at bedside, and patient placed on telemetry. He was started on gentle IVF hydration. He was sent for CT head/cspine. Patient's imaging reassuring. Labs consistent with prior admission and patient with elevated ammonia again, likely contributing to his encephalopathy. I have a low suspicion for additional occult traumatic injury at this time. Case discussed with the hospitalist team. Patient ntoed to have hematuria although this is previously documented to be chronic and ongoing. UA pending at time of discussion with hospitalist team. Consultation(s): 811: Discussed with Tamra Li medical team will be down to evaluate him. Patient will be admitted under Dr. Velazquez. UA pending at the time of our discussion. ER Treatment Provided: See below Diagnostics Interpreted By Me: -ECG: Normal sinus at 61, normal axis, normal intervals, no acute ST/T wave changes -Cardiac Monitoring: An order was placed for continuous cardiac monitoring. The monitor shows a rate of 70 with normal sinus rhythm. -Laboratory studies: As stated above and show below. -Imaging studies: X-ray Chest: A single view study of the chest was reviewed and was negative for cardiomegaly, focal infiltrate, effusion, pulmonary edema, or wide mediastinum. xr pelvis: no fx/dislocation Triage Nursing Note Reviewed Prior/Outside Records Reviewed -recent discharge summary reviewed from July 11, 2024 Past Med/Surg History Problem List (Updated 08/06/24 @ 12:18 by Melody Almanza DO) Hyperammonemia (Acute) Hematuria (Acute) Blood in stool Contusion of right hip (Acute) CHI (closed head injury) (Acute) Altered mental status (Acute) Radiation cystitis Fall (Acute) Diverticulitis (Acute) AMS (altered mental status) (Acute) Pancytopenia (Acute) Hyperammonemia (Acute) Hepatic encephalopathy Sigmoid diverticulitis Encephalopathy Elevated lactic acid level Epigastric abdominal pain Hypomagnesemia (Acute) Elevated liver enzymes (Acute) Acute hyperglycemia (Acute) Anemia (Acute) Precordial chest pain (Acute) Increased anion gap metabolic acidosis Abdominal pain, generalized Advanced care planning/counseling discussion Palliative care by specialist Acute on chronic blood loss anemia Elevated brain natriuretic peptide (BNP) level (Acute) Pancytopenia (Acute) Abdominal ascites (Acute) Abdominal pain (Acute) Hypocalcemia (Acute) Hyperglycemia (Acute) Elevated brain natriuretic peptide (BNP) level (Acute) Acute kidney injury superimposed on chronic kidney disease (Acute) Thrombocytopenia (Acute) Anemia requiring transfusions (Acute) Pancytopenia (Acute) Chest pain (Acute) LUCRETIA (acute kidney injury) Hematuria (Acute) Anemia (Acute) Acute urinary retention (Acute) DM type 2 (diabetes mellitus, type 2) Irradiation cystitis with hematuria UTI (urinary tract infection) (Acute) Anemia (Acute) 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 (Acute) Closed T12 spinal fracture (Acute) Prostate cancer (Acute) Hx radiation Insulin dependent type 2 diabetes mellitus Medical History CKD (chronic kidney disease) stage 3, GFR 30-59 ml/min Thrombocytopenia DM type 2 (diabetes mellitus, type 2) Hx of malignant neoplasm of prostate History of blood transfusion 11/2022 Hepatocellular carcinoma Spinal fracture of T12 vertebra History of recent hospitalization 06/2023 [facility] hepatic encephalopathy Liver spots Under surveillance, stable per patient Anxiety and depression 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 Anemia of chronic disease under surveillance History of panic attacks Gout No current issues GERD (gastroesophageal reflux disease) GAVE (gastric antral vascular ectasia) Hypertension Hx Esophageal varices EGD 05/22/23 ([facility]): Grade 1 varices in distal esophagus without high risk stigmata Upper GI bleed Hx Psoriasis Surgical History History of left cataract surgery History of right cataract surgery History of prostate biopsy malignant S/P TIPS (transjugular intrahepatic portosystemic shunt) History of esophagogastroduodenoscopy (EGD) Most recent 05/2023 [facility] History of colonoscopy with polypectomy History of tonsillectomy and adenoidectomy History of abdominal paracentesis Multiple, most recent 01/2023 Family History Father , "3/4 liver gone due to drinking" Colorectal cancer, Onset Age: 63 Mother Lung cancer Daughter Cancer cervical and thyroid cancers Ovarian cancer Other No family history of adverse response to anesthesia 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 Smoking Status: Unknown if ever smoked Second Hand Exposure: No; Hx Alcohol Use: No Hx Substance Use: No Preferred Language: Chinese Communication Ability: Effective Communication Ability Comment: AMS, unable to communicate Visual Impairment: No Limitations Hearing Ability: Normal Low Altitude Air Defense Gunner Required: No Beliefs That Will Affect Care: None marital status: Current Living Situation: Spouse Current Living Situation Comment: 1 level single family home 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 How many Children do You have: 6 How many Children do You have Comment: one , eldest daughter in her sleep from seizure disorder Feels Safe at Home: Yes Childhood Exposure to Second-Hand Smoke: Yes Diet Comment: "I watch my sugar, average fasting is 140 mg/dl" caffeine: Yes (cola, sugar free, decaf) during the past year weight has: remained stable Dental Care, Regularly: No Physical Activity Frequency: Does not Exercise Seatbelt Use: always Sunscreen Use: Yes Assistive Devices: Walker Allergies Allergies Allergy/AdvReac Type Severity Reaction Status Date / Time No Known Allergies Allergy Mild Verified 08/04/24 08:40 Home Meds Home Medications Medication Instructions Recorded Confirmed allopurinol 100 mg tablet 200 mg PO QAM 05/16/20 08/04/24 Lactobacil.acidophilus-Bifido.animalis 1 cap PO QAM 05/17/23 08/04/24 5 billion cell sprinkle capsule (Probiotic) ferrous sulfate 325 mg (65 mg 650 mg PO QAM 05/17/23 08/04/24 iron) tablet (iron) jtpxinjyhhtc-gcn-optfc acid-vit 1 tab PO DAILY 05/17/23 08/04/24 K-lycop 400 mcg-20 mcg-370 mcg tablet (Men's 50 Plus Multivitamin) duloxetine 30 mg capsule,delayed 30 mg PO QAM 02/02/24 08/04/24 release pantoprazole 40 mg tablet,delayed 40 mg PO AMPM 02/02/24 08/04/24 release rifaximin 550 mg tablet (Xifaxan) 550 mg PO AMHS 02/02/24 08/04/24 finasteride 5 mg tablet 5 mg PO QAM 03/20/24 08/04/24 lactulose 10 gram oral packet 10 g PO BID PRN . 03/20/24 08/04/24 (Kristalose) mirtazapine 30 mg tablet 30 mg PO HS 03/20/24 08/04/24 acetylcysteine 600 mg capsule 600 mg PO DAILY 05/03/24 08/04/24 cholestyramine (with sugar) 4 gram 1 ea PO BID 05/20/24 08/04/24 powder for susp in a packet insulin glargine 100 unit/mL (3 25 unit subcut QPM 05/20/24 08/04/24 mL) subcutaneous pen (Lantus Solostar U-100 Insulin) oxybutynin chloride 5 mg tablet 5 mg PO TID PRN Bladder Spasms 05/20/24 08/04/24 solifenacin 5 mg tablet 5 mg PO DAILY 05/20/24 08/04/24 triamcinolone acetonide 0.1 % 1 applic topical DAILY 05/20/24 08/04/24 topical cream zinc gluconate 50 mg tablet 50 mg PO DAILY ##0 05/20/24 08/04/24 lactulose 20 gram/30 mL oral 30 ml PO QID 08/04/24 08/04/24 solution magnesium chloride 64 mg 64 mg PO QAM 08/04/24 08/04/24 (magnesium chloride) tablet,delayed release (Mag 64) Previous Rx's Medication Instructions Recorded furosemide 40 mg tablet 40 mg PO QAM #30 tabs 05/30/24 spironolactone 100 mg tablet 100 mg PO QAM #30 tabs 05/30/24 Results & Data (ED) Vital Signs Vital Signs - 24 hr 08/04/24 05:09 08/04/24 05:09 08/04/24 05:09 Temperature 36.8 C 36.8 C Temperature Source Oral Pulse Rate 65 65 Pulse Rate [Apical] Pulse Rate from SpO2 Sensor Respiratory Rate 24 18 Respiratory Effort / Characteristics Non-Labored Non-Labored Respiratory Depth Normal Normal Blood Pressure 145/77 H 145/77 H Blood Pressure [Right Arm] Blood Pressure Mean 99 Blood Pressure Mean [Right Arm] Pulse Oximetry 98 98 Oxygen Delivery Method Room Air Room Air Sepsis Recent Fever Within 48 Hours No Sepsis New/Unexplained Change in Mental Status No Sepsis Action Taken by Nursing No Action Required 08/04/24 05:09 08/04/24 05:09 08/04/24 05:28 Temperature Temperature Source Pulse Rate Pulse Rate [Apical] Pulse Rate from SpO2 Sensor Respiratory Rate Respiratory Effort / Characteristics Non-Labored Respiratory Depth Normal Blood Pressure 145/77 H Blood Pressure [Right Arm] Blood Pressure Mean 119 Blood Pressure Mean [Right Arm] Pulse Oximetry Oxygen Delivery Method Room Air Sepsis Recent Fever Within 48 Hours Sepsis New/Unexplained Change in Mental Status Sepsis Action Taken by Nursing 08/04/24 05:28 08/04/24 05:31 08/04/24 05:33 Temperature Temperature Source Pulse Rate 61 62 Pulse Rate [Apical] Pulse Rate from SpO2 Sensor 62 Respiratory Rate 23 Respiratory Effort / Characteristics Respiratory Depth Blood Pressure 145/77 H Blood Pressure [Right Arm] Blood Pressure Mean 119 Blood Pressure Mean [Right Arm] Pulse Oximetry 100 Oxygen Delivery Method Sepsis Recent Fever Within 48 Hours Sepsis New/Unexplained Change in Mental Status Sepsis Action Taken by Nursing 08/04/24 05:45 08/04/24 05:57 08/04/24 06:06 Temperature Temperature Source Pulse Rate 60 58 L 59 L Pulse Rate [Apical] Pulse Rate from SpO2 Sensor 60 61 Respiratory Rate 12 16 16 Respiratory Effort / Characteristics Respiratory Depth Blood Pressure Blood Pressure [Right Arm] Blood Pressure Mean Blood Pressure Mean [Right Arm] Pulse Oximetry 100 99 Oxygen Delivery Method Sepsis Recent Fever Within 48 Hours Sepsis New/Unexplained Change in Mental Status Sepsis Action Taken by Nursing 08/04/24 06:09 08/04/24 06:35 08/04/24 07:00 Temperature Temperature Source Pulse Rate 62 69 Pulse Rate [Apical] Pulse Rate from SpO2 Sensor Respiratory Rate 21 12 Respiratory Effort / Characteristics Non-Labored Respiratory Depth Normal Blood Pressure 169/93 H Blood Pressure [Right Arm] Blood Pressure Mean 118 Blood Pressure Mean [Right Arm] Pulse Oximetry 99 98 Oxygen Delivery Method Room Air Room Air Sepsis Recent Fever Within 48 Hours Sepsis New/Unexplained Change in Mental Status Sepsis Action Taken by Nursing 08/04/24 07:00 08/04/24 08:00 Temperature Temperature Source Pulse Rate Pulse Rate [Apical] 69 69 Pulse Rate from SpO2 Sensor Respiratory Rate 12 14 Respiratory Effort / Characteristics Respiratory Depth Blood Pressure Blood Pressure [Right Arm] 160/87 H 173/92 H Blood Pressure Mean Blood Pressure Mean [Right Arm] 111 119 Pulse Oximetry 98 98 Oxygen Delivery Method Room Air Room Air Sepsis Recent Fever Within 48 Hours Sepsis New/Unexplained Change in Mental Status Sepsis Action Taken by Nursing Laboratory Data 08/06/24 07:17 08/05/24 05:58 Lab Results 08/04/24 08/04/24 08/04/24 Range/Units 05:27 05:27 05:49 WBC 2.63 L (4.8-10.8) K/ul RBC 2.91 L (4.70-6.10) M/uL Hgb 9.6 L (14.0-18.0) g/dl POC Hgb 8.8 L (14.0-18.0) g/dl Hct 28.1 L (42.0-52.0) % POC Hct 26 L (42-52) % MCV 96.6 (80.0-100.0) fL MCH 33.0 (25.0-34.0) pg MCHC 34.2 (32.0-36.0) g/dL RDW Std Deviation 66.1 H (36.4-46.3) fL RDW Coeff of Violetta 18.6 H (11.5-14.5) % Plt Count 76 L (130-400) K/uL MPV 12.0 (9.4-12.4) fL Immature Gran % (Auto) 2.3 % Neut % (Auto) 62.7 % Lymph % (Auto) 22.1 % Murray % (Auto) 5.7 % Eos % (Auto) 6.8 % Baso % (Auto) 0.4 % Neut # (Auto) 1.65 (1.40-6.50) K/uL Lymph # (Auto) 0.58 L (1.20-3.40) K/uL Murray # (Auto) 0.15 (0.11-0.59) K/uL Eos # (Auto) 0.18 (0.00-0.50) K/uL Baso # (Auto) 0.01 (0.00-0.20) K/uL Immature Gran # (Auto) 0.06 (0.01-0.20) K/uL PT 12.4 H (9.0-12.0) Seconds INR 1.2 H (0.9-1.1) POC Sodium 142 (135-144) mmol/L Sodium 139 (136-145) mmol/L POC Potassium 4.5 (3.3-5.0) mmol/L Potassium 4.4 (3.5-5.1) mmol/L POC Chloride 109 (101-112) mmol/L Chloride 110 H (98-107) mmol/L Carbon Dioxide 22 (21-32) mmol/L POC Total CO2 20 L (24-31) mmol/L Anion Gap 7 (3-11) POC Anion Gap 18.0 (16-25) mmol/L POC BUN 21 H (7-18) mg/dl BUN 23 (6-23) mg/dl Creatinine 1.22 (0.6-1.4) mg/dl POC Creatinine 1.2 (0.6-1.3) mg/dl Est Cr Clr Drug Dosing 54.8 ml/min Est GFR ( Amer) 67.3 ml/min Est GFR (Non-Af Amer) 58.0 ml/min BUN/Creatinine Ratio 18.9 (10-20) Glucose 180 H (70-99(Fasting)) mg/dl POC Glucose (other) 174 H (70-99) mg/dl Calcium 8.5 L (8.6-10.3) mg/dl POC Ioniz Calcium Meryl 1.20 (1.12-1.32) mmol/l Total Bilirubin 3.3 H (0.2-1.0) mg/dl AST 34 (13-39) U/L ALT 18 (7-52) U/L Alkaline Phosphatase 156 H (34-104) U/L Ammonia 153.0 H (18-72) umol/L Total Creatine Kinase 55 (30-223) U/L Troponin I High Sens 18.7 Cancelled (0-20) pg/ml Total Protein 6.6 (6.0-8.3) gm/dl Albumin 3.0 L (3.4-5.0) gm/dl Globulin 3.6 (2.5-4.0) gm/dl Albumin/Globulin Ratio 0.8 L (0.9-2) Urine Color Urine Appearance (Clear) Urine pH (4.5-7.5) Ur Specific [place] (1.000-1.030) Urine Protein (Negative) Urine Glucose (UA) (Negative) Urine Ketones (Negative) Urine Blood (Negative) Urine Nitrite (Negative) Urine Bilirubin (Negative) Urine Urobilinogen (Negative) Ur Leukocyte Esterase (Negative) Urine RBC (0-2) /hpf Urine WBC (0-5) /hpf Ur Epithelial Cells (0-2) /hpf Urine Bacteria (None Seen) Ethyl Alcohol mg/dL < 10.0 (<10.0) mg/dl 08/04/24 Range/Units 07:49 WBC (4.8-10.8) K/ul RBC (4.70-6.10) M/uL Hgb (14.0-18.0) g/dl POC Hgb (14.0-18.0) g/dl Hct (42.0-52.0) % POC Hct (42-52) % MCV (80.0-100.0) fL MCH (25.0-34.0) pg MCHC (32.0-36.0) g/dL RDW Std Deviation (36.4-46.3) fL RDW Coeff of Violetta (11.5-14.5) % Plt Count (130-400) K/uL MPV (9.4-12.4) fL Immature Gran % (Auto) % Neut % (Auto) % Lymph % (Auto) % Murray % (Auto) % Eos % (Auto) % Baso % (Auto) % Neut # (Auto) (1.40-6.50) K/uL Lymph # (Auto) (1.20-3.40) K/uL Murray # (Auto) (0.11-0.59) K/uL Eos # (Auto) (0.00-0.50) K/uL Baso # (Auto) (0.00-0.20) K/uL Immature Gran # (Auto) (0.01-0.20) K/uL PT (9.0-12.0) Seconds INR (0.9-1.1) POC Sodium (135-144) mmol/L Sodium (136-145) mmol/L POC Potassium (3.3-5.0) mmol/L Potassium (3.5-5.1) mmol/L POC Chloride (101-112) mmol/L Chloride (98-107) mmol/L Carbon Dioxide (21-32) mmol/L POC Total CO2 (24-31) mmol/L Anion Gap (3-11) POC Anion Gap (16-25) mmol/L POC BUN (7-18) mg/dl BUN (6-23) mg/dl Creatinine (0.6-1.4) mg/dl POC Creatinine (0.6-1.3) mg/dl Est Cr Clr Drug Dosing ml/min Est GFR ( Amer) ml/min Est GFR (Non-Af Amer) ml/min BUN/Creatinine Ratio (10-20) Glucose (70-99(Fasting)) mg/dl POC Glucose (other) (70-99) mg/dl Calcium (8.6-10.3) mg/dl POC Ioniz Calcium Meryl (1.12-1.32) mmol/l Total Bilirubin (0.2-1.0) mg/dl AST (13-39) U/L ALT (7-52) U/L Alkaline Phosphatase (34-104) U/L Ammonia (18-72) umol/L Total Creatine Kinase (30-223) U/L Troponin I High Sens (0-20) pg/ml Total Protein (6.0-8.3) gm/dl Albumin (3.4-5.0) gm/dl Globulin (2.5-4.0) gm/dl Albumin/Globulin Ratio (0.9-2) Urine Color Red Urine Appearance Cloudy A (Clear) Urine pH 7.0 (4.5-7.5) Ur Specific [place] 1.020 (1.000-1.030) Urine Protein 3+ H (Negative) Urine Glucose (UA) Negative (Negative) Urine Ketones Negative (Negative) Urine Blood 3+ H (Negative) Urine Nitrite Negative (Negative) Urine Bilirubin Negative (Negative) Urine Urobilinogen Positive H (Negative) Ur Leukocyte Esterase Trace H (Negative) Urine RBC >20 H (0-2) /hpf Urine WBC 6-10 H (0-5) /hpf Ur Epithelial Cells 3-5 H (0-2) /hpf Urine Bacteria 1+ H (None Seen) Ethyl Alcohol mg/dL (<10.0) mg/dl Administered Medications Acetaminophen (Acetaminophen 325 Mg Tab) 650 mg PO Q8H PRN PRN Reason: Pain/Fever Stop: 09/03/24 10:02 Last Admin: 08/04/24 20:28 Dose: 650 mg Documented By: DIAMOND Acetylcysteine (Acetylcysteine 600 Mg Cap) 600 mg PO DAILY [facility] Stop: 09/04/24 08:59 Last Admin: 08/06/24 09:28 Dose: 600 mg Documented By: Admin: 08/05/24 09:28 Dose: 600 mg Documented By: KESHIA Allopurinol ([facility]op[facility]ol 100 Mg Tab) [facility] [place]: 09/04/24 08:59 Last Admin: 08/06/24 09:27 Dose: 200 mg Documented By: Admin: 08/05/24 09:28 Dose: 200 mg Documented By: KESHIA Cholestyramine Resin (Cholestyramine Light 4 Gm Pkt) 4 gm PO BID@1000,2200 [facility] Stop: 09/03/24 21:59 Last Admin: 08/05/24 23:23 Dose: 4 gm Documented By: Admin: 08/05/24 10:14 Dose: 4 gm Documented By: Admin: 08/04/24 20:30 Dose: 4 gm Documented By: DIAMOND Diclofenac Sodium (Diclofenac Sod 1% Gel 100 Gm Tube) 2 gm EXT BID [facility]; Protocol Stop: 09/03/24 10:02 Last Admin: 08/06/24 09:36 Dose: 2 gm Documented By: Admin: 08/05/24 21:14 Dose: 2 gm Documented By: Sweetie Admin: 08/05/24 09:30 Dose: 2 gm Documented By: Admin: 08/04/24 20:45 Dose: 2 gm Documented By: Admin: 08/04/24 11:10 Dose: 2 gm Documented By: KESHIA Duloxetine HCl (Duloxetine Hcl 30 Mg Cap) 30 mg PO QAM [facility] Stop: 09/04/24 08:59 Last Admin: 08/06/24 09:29 Dose: 30 mg Documented By: Admin: 08/05/24 09:27 Dose: 30 mg Documented By: TMP Ferrous Sulfate (Ferrous Sulfate 325 Mg Tab) 650 [facility] [place]: 09/04/24 08:59 Last Admin: 08/06/24 09:28 Dose: 650 mg Documented By: Admin: 08/05/24 10:14 Dose: 650 mg Documented By: TMP Finasteride (Finasteride 5 Mg Tab) [facility] [place]: 09/04/24 08:59 Last Admin: 08/06/24 09:28 Dose: 5 mg Documented By: Admin: 08/05/24 09:28 Dose: 5 mg Documented By: TMP Hydralazine HCl (Hydralazine Hcl 20 Mg/Ml Vial) 5 mg IV Q6H PRN PRN Reason: SBP >180 Stop: 09/03/24 10:29 Last Admin: 08/04/24 12:49 Dose: 5 mg Documented By: TMP Insulin Aspart (Insulin Aspart Per Unit Charge) 0 units SC ACHS [facility] Stop: 09/04/24 16:29 Last Admin: 08/06/24 10:14 Dose: 7 units Documented By: [email or web address] Co-signed By: HERNANDEZ Admin: 08/05/24 21:13 Dose: 2 units Documented By: [id number] Co-signed By: AES Admin: 08/05/24 17:36 Dose: 9 units Documented By: KESHIA Co-signed By: CIARAN Lactobacillus Acidophilus (Advanced Probiotic 625 Mg Capsule) 1,250 mg PO [facility] Stop: 09/04/24 08:59 Last Admin: 08/06/24 09:29 Dose: 1,250 mg Documented By: Admin: 08/05/24 09:26 Dose: 1,250 mg Documented By: KESHIA Lactulose (Lactulose Syrup 20 Gm/30 Ml [facility] [place]) 20 gm PO QID [facility] Stop: 09/03/24 10:02 Last Admin: 08/06/24 09:30 Dose: 20 gm Documented By: Admin: 08/05/24 21:15 Dose: Not Given Documented By: [id number] Admin: 08/05/24 17:36 Dose: Not Given Documented By: Admin: 08/05/24 15:02 Dose: Not Given Documented By: Admin: 08/05/24 09:25 Dose: 20 gm Documented By: Admin: 08/04/24 20:28 Dose: 20 gm Documented By: Admin: 08/04/24 17:48 Dose: Not Given Documented By: Admin: 08/04/24 12:16 Dose: Not Given Documented By: Admin: 08/04/24 11:03 Dose: Not Given Documented By: TMP Lactulose (Lactulose 200gm/700ml Wtr Enema) 200 gm [place] Q8H [facility] Stop: 09/03/24 13:59 Last Admin: 08/06/24 05:34 Dose: Not Given Documented By: Admin: 08/05/24 21:09 Dose: Not Given Documented By: [id number] Admin: 08/05/24 12:35 Dose: Not Given Documented By: Admin: 08/05/24 05:55 Dose: Not Given Documented By: Admin: 08/04/24 21:41 Dose: Not Given Documented By: Admin: 08/04/24 12:16 Dose: 200 gm Documented By: KESHIA Magnesium Chloride (Magnesium Chloride W/Calcium 64mg Delayed Rel Tab) 64 mg PO BID [facility] Stop: 09/03/24 20:59 Last Admin: 08/06/24 09:28 Dose: 64 mg Documented By: Admin: 08/05/24 21:15 Dose: 64 mg Documented By: [id number] Admin: 08/05/24 09:26 Dose: 64 mg Documented By: Admin: 08/04/24 20:28 Dose: 64 mg Documented By: DIAMOND Miconazole Nitrate (Miconazole Nitrate Powder 85 Gm) 1 appln EXT BID PRN PRN Reason: Affected Skin Folds Stop: 09/03/24 20:06 Last Admin: 08/04/24 20:31 Dose: 1 appln Documented By: DIAMOND Mirtazapine (Mirtazapine Tab 15 Mg Tab) 30 mg PO HS [facility]I Stop: 09/03/24 20:59 Last Admin: 08/05/24 21:17 Dose: 30 mg Documented By: [id number] Admin: 08/04/24 20:30 Dose: 30 mg Documented By: DIAMOND Multivitamins (Multivitamin Tab) 1 tab PO DAILY [facility] Stop: 09/04/24 08:59 Last Admin: 08/06/24 09:27 Dose: 1 tab Documented By: Admin: 08/05/24 09:25 Dose: 1 tab Documented By: TMP Oxybutynin Chloride (Oxybutynin Chloride 5 Mg Tab) 5 mg PO TID PRN PRN Reason: Bladder Spasms Stop: 09/03/24 10:02 Last Admin: 08/04/24 20:29 Dose: 5 mg Documented By: DIAMOND Oxybutynin Chloride (Oxybutynin Chloride Xl 5 Mg Tabcr) 5 mg PO DAILY [facility] Stop: 09/04/24 08:59 Last Admin: 08/06/24 09:26 Dose: 5 mg Documented By: Admin: 08/05/24 09:26 Dose: 5 mg Documented By: KESHIA Pantoprazole Sodium (Pantoprazole 40 Mg Tab) 40 mg PO BID [facility] Stop: 09/03/24 10:02 Last Admin: 08/06/24 11:02 Dose: 40 mg Documented By: Admin: 08/05/24 21:18 Dose: 40 mg Documented By: [id number] Admin: 08/05/24 10:14 Dose: 40 mg Documented By: Admin: 08/04/24 20:46 Dose: 40 mg Documented By: Admin: 08/04/24 11:03 Dose: Not Given Documented By: KESHIA Rifaximin (Rifaximin 550 Mg Tablet) 550 mg PO AMHS [facility] Stop: 09/03/24 20:59 Last Admin: 08/06/24 09:27 Dose: 550 mg Documented By: Admin: 08/05/24 21:15 Dose: 550 mg Documented By: [id number] Admin: 08/05/24 09:27 Dose: 550 mg Documented By: Admin: 08/04/24 20:31 Dose: 550 mg Documented By: DIAMOND Zinc Sulfate (Zinc Sulfate 220 Mg Capsule) 220 mg PO DAILY [facility] Stop: 09/04/24 08:59 Last Admin: 08/06/24 09:28 Dose: 220 mg Documented By: Admin: 08/05/24 09:26 Dose: 220 mg Documented By: KESHIA Discontinued Medications Sodium Chloride (Nss) 500 mls @ 80 mls/hr IV .[id number] [facility] Stop: 09/03/24 07:29 Last Infusion: 08/04/24 10:53 Dose: Infused Documented By: Admin: 08/04/24 07:37 Dose: 80 mls/hr Documented By: RALF Sodium Chloride (Nss) 1,000 mls @ 80 mls/hr IV .[id number] JODI Stop: 08/04/24 22:32 Last Infusion: 08/05/24 01:46 Dose: Infused Documented By: Infusion: 08/04/24 21:42 Dose: 80 mls/hr Documented By: Admin: 08/04/24 11:09 Dose: 80 mls/hr Documented By: KESHIA Cefepime HCl 2,000 mg/ Syringe 20 mls @ 5 mls/min IV Q12 JODI; Protocol Stop: 08/14/24 10:29 Last Admin: 08/06/24 10:54 Dose: Not Given Documented By: Admin: 08/05/24 21:13 Dose: 5 mls/min Documented By: [id number] Admin: 08/05/24 10:14 Dose: 5 mls/min Documented By: Admin: 08/04/24 20:45 Dose: 5 mls/min Documented By: Admin: 08/04/24 11:10 Dose: 5 mls/min Documented By: TMP Vancomycin HCl 1,750 mg/ (Sodium Chloride) 535 mls @ 200 mls/hr IV ONE ONE Stop: 08/04/24 13:10 Last Infusion: 08/04/24 14:23 Dose: Infused Documented By: Admin: 08/04/24 11:10 Dose: 200 mls/hr Documented By: TMP Vancomycin HCl 1,500 mg/ (Sodium Chloride) 530 mls @ 200 mls/hr IV Q24H [facility] Stop: 08/14/24 21:59 Last Infusion: 08/06/24 02:31 Dose: Infused Documented By: Admin: 08/05/24 23:26 Dose: 200 mls/hr Documented By: Infusion: 08/05/24 01:46 Dose: Infused Documented By: Admin: 08/04/24 21:41 Dose: 200 mls/hr Documented By: DIAMOND Insulin Aspart (Insulin Aspart Per Unit Charge) 0 units SC Q6 JODI Stop: 09/03/24 11:59 Last Admin: 08/05/24 12:44 Dose: 2 units Documented By: KESHIA Co-signed By: BRANDON Admin: 08/05/24 06:15 Dose: Not Given Documented By: [id number] Co-signed By: DIAMOND Admin: 08/05/24 00:27 Dose: 1 units Documented By: DIAMOND Co-signed By: [id number] Admin: 08/04/24 18:20 Dose: 1 units Documented By: KESHIA Co-signed By: CIARAN Admin: 08/04/24 12:49 Dose: 2 units Documented By: KESHIA Co-signed By: FATIMAH Insulin Glargine (Lantus Per Unit Charge) 15 units SQ ONE ONE Stop: 08/04/24 12:16 Last Admin: 08/04/24 12:49 Dose: 15 units Documented By: KESHIA Co-signed By: FATIMAH Insulin Glargine (Lantus Per Unit Charge) 15 units SQ DAILY JODI Stop: 09/04/24 12:29 Last Admin: 08/05/24 12:44 Dose: 15 units Documented By: KESHIA Co-signed By: BRANDON Lorazepam (Lorazepam 1 Mg/1 Ml Syr Ed Inj Use) 0.5 mg IV ONE STA Stop: 08/04/24 06:02 Last Admin: 08/04/24 06:10 Dose: 0.5 mg Documented By: AMRGI Imaging Data Radiologist's Impression: Pelvis X-Ray 08/04/24 05:26 XR pelvis 1-2V routine CLINICAL HISTORY: trauma COMPARISON: CT of the abdomen and pelvis July 05, 2024. FINDINGS: The sacroiliac joints and symphysis pubis are intact. There is no acute fracture within the pelvis or hips. There are no osseous lesions. There is mild to moderate bilateral hip osteoarthritis. IMPRESSION: No fractures within the pelvis or hips. ACT 112: Negative or not required by law. Electronically signed by: Elan Alexander M.D. 08/04/2024 6:[address] 08/04/24 05:27 CT cervical spine wo con CT DOSE: 1242.95 mGy.cm CLINICAL HISTORY: 74 years-old Male with Trauma. Acute neck injury status post trauma COMPARISON: 07/05/2024 TECHNIQUE: Multiple axial CT images of the cervical spine were obtained without contrast. A dose lowering technique was utilized adhering to the principles of ALARA. FINDINGS: No fractures. No subluxation. Prevertebral soft tissues and the C1-C2 interval are intact. No pneumothorax. IMPRESSION: No acute fracture or subluxation. ACT 112: Negative or not required by law. The above report was generated using voice recognition software. It may contain grammatical, syntax or spelling errors. Electronically signed by: Yovany Gonzalez M.D. 08/04/2024 6:57 AM Chest X-Ray 08/04/24 05:27 XR chest 1V portable CLINICAL HISTORY: Trauma. COMPARISON STUDY: Chest radiograph June 12, 2024. Chest CT July 05, 2024. FINDINGS: Lungs are clear. There is no pneumothorax or pleural effusion. Cardiac size is normal. Mediastinal contours are normal. There is no evidence for pulmonary edema. IMPRESSION: No acute cardiopulmonary findings. ACT 112: Negative or not required by law. Electronically signed by: Elan Alexander M.D. 08/04/2024 6:[address] 08/04/24 05:27 CT head/brain wo con CLINICAL HISTORY: 74 years-old Male with Trauma. Acute head trauma TECHNIQUE: Multiple axial CT images of the head were obtained without contrast. A dose lowering technique was utilized adhering to the principles of ALARA. COMPARISON: 07/05/2024 FINDINGS: No acute intracranial hemorrhage, midline shift, intracranial mass, hydrocephalus, territorial ischemia or abnormal extra-axial collection. Involutional changes with mild chronic microvascular ischemic disease. Cerebral vascular calcifications. The calvarium is intact. Mild mucosal thickening of the paranasal sinuses. Dental caries. Mastoid air cells are clear. Prior bilateral lens repair. IMPRESSION: No acute intracranial abnormality or calvarial fracture. ACT 112: Negative or not required by law. The above report was generated using voice recognition software. It may contain grammatical, syntax or spelling errors. Electronically signed by: Yovany Gonzalez M.D. 08/04/2024 6:54 AM Discharge Plan Visit Data Chief Complaint: Trauma Stated Complaint: FALL, ALTERED, BACK PAIN ED Provider: Melody Almanza Discharge Problem: Altered mental status, CHI (closed head injury), Contusion of right hip, Hematuria, Hyperammonemia Patient Disposition: Admitted As Inpatient Discharge Instructions Interventions: ED Discharge Assessment Last Done: 08/04/24 09:09
--- NOTE | 2024-08-04 06:57 | XRay Report ---
XR pelvis 1-2V routine CLINICAL HISTORY: trauma COMPARISON: CT of the abdomen and pelvis July 05, 2024. FINDINGS: The sacroiliac joints and symphysis pubis are intact. There is no acute fracture within th e pelvis or hips. There are no osseous lesions. There is mild to moderate bilateral hip osteoarthriti s. IMPRESSION: No fractures within the pelvis or hips. ACT 112: Negative or not required by law. Electronically signed by: Elan Alexander M.D. 08/04/2024 6:56 AM
[2024-08-04] MEDS: SODIUM CHLORIDE 0.9% 500 ML IV SCH (07:37)
--- NOTE | 2024-08-04 08:16 | History & Physical Report ---
Date of Service August 04, 2024 Assessment & Plan (1) Fall: (2) Hepatic encephalopathy: (3) UTI (urinary tract infection): Plan Luis Hale is a 74y/o M with PMHx of DM type II [on basal insulin], CKD stage III, dyslipidemia, chronic gout of multiple sites, restrictive lung disease, pulmonary hypertension, gastric antral vascular ectasia, esophageal varices, history of portal vein thrombosis, cirrhosis of liver, hepatic encephalopathy, GERD, history of liver cell carcinoma, prostate cancer, radiation cystitis, acquired thrombocytopenia, chronic anemia [baseline Hgb ~8] and other problems listed below who presented to the ED via EMS after falling off of the couch this morning. Patient was made a trauma alert SISTER SUPERIOR. Unable to elicit any history from patient. Patient's son, Alex, reports that he has been acting confused since late last night. Notes that his bowel movements have "slowed down" over the last couple of days. Reports patient has been taking about half packet per day of his 10g lactulose since his last admission. Patient had a mechanical fall last night where he landed on his right hip and sustained a bruise to that region. Patient then "slipped off the couch" this morning. This was an unwitnessed event. No known loss of consciousness. Most recent admission at [facility] 07/05/24-07/10/24. Fall, Right Hip Contusion: All imaging performed in ED was negative for acute injuries/fractures. C-collar in place. Fall precautions. R hip contusion noted on exam. PRN low-dose IV Dilaudid. Topical Voltaren, heating pad. Need to clear C-spine when patient is more alert/communicative. PT/OT evals pending. Hepatic Encephalopathy: Ammonia 153 on presentation. Unsure on patient's ability to swallow given AMS. NPO except sips/meds for now. Continue IVF w/ 1L NSS. Scheduled po lactulose to be used first. If patient unable to tolerate po intake, can use lactulose enema (communication order placed). Goal of 3-4 BMs/day. Repeat ammonia level in AM. Acute UTI: UA appears infected. No leukocytosis, no overt urinary symptoms per patient's son. RVP pending for infectious w/u. Will treat w/ IV vancomycin + cefepime for now given h/o Corynebacterium urealyticum & Proteus mirabilis. Urine cx pending. Hepatic Cirrhosis 2/2 FOFANA, H/O Ascites H/O Esophageal Varices & Gastric Antral Vascular Ectasia Patient was previously undergoing paracentesis [id number]. Most recent therapeutic paracentesis performed on 06/15/24 - 1.2L was removed from a pocket of fluid identified in the LLQ. Did not f/u w/ GI after his most recent admission. Patient met / [facility] Palliative Medicine on 07/22/24. Discussion was had regarding starting hyperbaric oxygen chamber 3h/day for 12 weeks. Alk phos 156, total bili 3.3 on admission. Continue Xifaxan BID. Scheduled lactulose while inpatient 2/2 presenting hepatic encephalopathy. Hold SISTER SUPERIOR diuretics for now. May benefit from GI consultation. DM Type II: Hold custom home installer, basal/bolus regimen while inpatient. Hgb A1c 5.8% on 06/30/24. BCG checks ACHS. Glycemic pharmacy consulted. CKD Stage III: Cr 1.22 on admission, baseline Cr ~1.3-1.6 per chart review. Avoid nephrotoxic meds when able, monitor renal fx. Renal dosing PRN. H/O Prostate Cancer & Radiation Cystitis: Follows / [facility] Hematology/Oncology [Dr. Ramires]. Completed radiation therapy to the prostate on 04/05/21. Pt also follows [facility] Urology [Dr. Frank Peraza]. History of radiation cystitis s/p cystourethroscopy with clot evacuation and fulguration. Can continue finasteride, oxybutynin and solifenacin. Hepatocellular Carcinoma Chronic Anemia & Thrombocytopenia: Underwent transarterial bland embolization at [facility] on 06/11/24. Hgb 9.6 on admission, baseline Hgb ~8. Plt count 76k on admission - stable. Has previously required frequent blood transfusions in the past. He was also treated multiple times w/ iron infusions. Continue SISTER SUPERIOR iron supplement. Other Chronic Medical Conditions: Gout, anxiety/depression --> Can continue SISTER SUPERIOR home meds for these specific conditions. PRN IM olanzapine for agitation ordered. DVT Prophylaxis: SCDs/TEDs for now. Code Status: FULL CODE - Per discussion with the patient's son, Alex, over the phone. PCP: Kristen Vences, Disposition: Admit to Med/Surg + Telemetry Patient seen in collaboration with Dr. Velazquez. Please see addendum. I spent a total of 65 minutes coordinating, documenting, and providing care for this patient excluding time spent in the performance of separately billed services. This included personally reviewing all current laboratories and imaging studies, medical reconciliation, outpatient chart review and discussion with specialists. This chart was completed in part utilizing Speech Voice Recognition Software. Grammatical errors, random word insertions, pronoun errors, and incomplete sentences are an occasional consequence of this system due to software limitations, ambient noise, and hardware issues. Any formal questions or concerns about the content, text, or information contained within the body of this dictation should be directly addressed to the provider for clarification. History of Present Illness Chief Complaint: Trauma Primary Care Provider: Kristen Vences DO Luis Hale is a 74y/o M with PMHx of DM type II [on basal insulin], CKD stage III, dyslipidemia, chronic gout of multiple sites, restrictive lung disease, pulmonary hypertension, gastric antral vascular ectasia, esophageal varices, history of portal vein thrombosis, cirrhosis of liver, hepatic encephalopathy, GERD, history of liver cell carcinoma, prostate cancer, radiation cystitis, acquired thrombocytopenia, chronic anemia [baseline Hgb ~8] and other problems listed below who presented to the ED via EMS after falling off of the couch this morning. Patient was made a trauma alert SISTER SUPERIOR. History obtained from patient's son via communication over the phone and associated chart review. Unable to elicit any history from patient. Patient's son, Alex, reports that he has been acting confused since late last night. Notes that his bowel movements have "slowed down" over the last couple of days. Reports patient has been taking about half packet per day of his 10g lactulose since his last admission. Was having approximately 3 bowel movements a day previously. Son unsure of how many bowel movements patient had yesterday. Mentions patient was acting fine yesterday up until last night. Patient had a fall where he tripped over an object on the ground last night. He landed on his right hip at that time and sustained a bruise to that region. Son was able to get him up off the floor from that fall. Patient then went to sleep on the couch in living room. Son reports that he "slipped off the couch" this morning. This was an unwitnessed event. Does not think he hit his head. No known loss of consciousness. No recent illnesses or fevers per son. Son reports patient wishes to be FULL CODE STATUS. Allergies Allergy/AdvReac Type Severity Reaction Status Date / Time No Known Allergies Allergy Mild Verified 08/04/24 08:40 Home Medications Medication Instructions Recorded Confirmed Type allopurinol 100 mg tablet 200 mg PO QAM 05/16/20 08/04/24 History Lactobacil.acidophilus-Bifido.animalis 1 cap PO QAM 05/17/23 08/04/24 History 5 billion cell sprinkle capsule (Probiotic) ferrous sulfate 325 mg (65 mg 650 mg PO QAM 05/17/23 08/04/24 History iron) tablet (iron) rthgncoitbum-ffp-oegiz acid-vit 1 tab PO DAILY 05/17/23 08/04/24 History K-lycop 400 mcg-20 mcg-370 mcg tablet (Men's 50 Plus Multivitamin) duloxetine 30 mg capsule,delayed 30 mg PO QAM 02/02/24 08/04/24 History release pantoprazole 40 mg tablet,delayed 40 mg PO AMPM 02/02/24 08/04/24 History release rifaximin 550 mg tablet (Xifaxan) 550 mg PO AMHS 02/02/24 08/04/24 History finasteride 5 mg tablet 5 mg PO QAM 03/20/24 08/04/24 History lactulose 10 gram oral packet 10 g PO BID PRN . 03/20/24 08/04/24 History (Kristalose) mirtazapine 30 mg tablet 30 mg PO HS 03/20/24 08/04/24 History acetylcysteine 600 mg capsule 600 mg PO DAILY 05/03/24 08/04/24 History cholestyramine (with sugar) 4 gram 1 ea PO BID 05/20/24 08/04/24 History powder for susp in a packet insulin glargine 100 unit/mL (3 25 unit subcut QPM 05/20/24 08/04/24 History mL) subcutaneous pen (Lantus Solostar U-100 Insulin) oxybutynin chloride 5 mg tablet 5 mg PO TID PRN Bladder Spasms 05/20/24 08/04/24 History solifenacin 5 mg tablet 5 mg PO DAILY 05/20/24 08/04/24 History triamcinolone acetonide 0.1 % 1 applic topical DAILY 05/20/24 08/04/24 History topical cream zinc gluconate 50 mg tablet 50 mg PO DAILY ##0 05/20/24 08/04/24 History furosemide 40 mg tablet 40 mg PO QAM #30 tabs 05/30/24 08/04/24 Rx spironolactone 100 mg tablet 100 mg PO QAM #30 tabs 05/30/24 08/04/24 Rx lactulose 20 gram/30 mL oral 30 ml PO QID 08/04/24 08/04/24 History solution magnesium chloride 64 mg 64 mg PO QAM 08/04/24 08/04/24 History (magnesium chloride) tablet,delayed release (Mag 64) Past Med/Surg History Problem List Contusion of right hip (Acute) CHI (closed head injury) (Acute) Altered mental status (Acute) Radiation cystitis Fall (Acute) Diverticulitis (Acute) AMS (altered mental status) (Acute) Pancytopenia (Acute) Hyperammonemia (Acute) Hepatic encephalopathy Sigmoid diverticulitis Encephalopathy Elevated lactic acid level Epigastric abdominal pain Hypomagnesemia (Acute) Elevated liver enzymes (Acute) Acute hyperglycemia (Acute) Anemia (Acute) Precordial chest pain (Acute) Increased anion gap metabolic acidosis Abdominal pain, generalized Advanced care planning/counseling discussion Palliative care by specialist Acute on chronic blood loss anemia Elevated brain natriuretic peptide (BNP) level (Acute) Pancytopenia (Acute) Abdominal ascites (Acute) Abdominal pain (Acute) Hypocalcemia (Acute) Hyperglycemia (Acute) Elevated brain natriuretic peptide (BNP) level (Acute) Acute kidney injury superimposed on chronic kidney disease (Acute) Thrombocytopenia (Acute) Anemia requiring transfusions (Acute) Pancytopenia (Acute) Chest pain (Acute) LUCRETIA (acute kidney injury) Hematuria (Acute) Anemia (Acute) Acute urinary retention (Acute) DM type 2 (diabetes mellitus, type 2) Irradiation cystitis with hematuria UTI (urinary tract infection) (Acute) Anemia (Acute) 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 (Acute) Closed T12 spinal fracture (Acute) Prostate cancer (Acute) Hx radiation Insulin dependent type 2 diabetes mellitus Medical History CKD (chronic kidney disease) stage 3, GFR 30-59 ml/min Thrombocytopenia DM type 2 (diabetes mellitus, type 2) Hx of malignant neoplasm of prostate History of blood transfusion 11/2022 Hepatocellular carcinoma Spinal fracture of T12 vertebra History of recent hospitalization 06/2023 [facility] hepatic encephalopathy Liver spots Under surveillance, stable per patient Anxiety and depression 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 Anemia of chronic disease under surveillance History of panic attacks Gout No current issues GERD (gastroesophageal reflux disease) GAVE (gastric antral vascular ectasia) Hypertension Hx Esophageal varices EGD 05/22/23 ([facility]): Grade 1 varices in distal esophagus without high risk stigmata Upper GI bleed Hx Psoriasis Surgical History History of left cataract surgery History of right cataract surgery History of prostate biopsy malignant S/P TIPS (transjugular intrahepatic portosystemic shunt) History of esophagogastroduodenoscopy (EGD) Most recent 05/2023 [facility] History of colonoscopy with polypectomy History of tonsillectomy and adenoidectomy History of abdominal paracentesis Multiple, most recent 01/2023 Family History Father , "3/4 liver gone due to drinking" Colorectal cancer, Onset Age: 63 Mother Lung cancer Daughter Cancer cervical and thyroid cancers Ovarian cancer Other No family history of adverse response to anesthesia 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 Smoking Status: Former smoker Second Hand Exposure: No; Hx Alcohol Use: No Hx Substance Use: No Preferred Language: Icelandic Communication Ability: Impaired Communication Ability Comment: AMS, not answering questions appropriately Visual Impairment: No Limitations Hearing Ability: Normal Extracorporeal Technician Required: No Beliefs That Will Affect Care: None marital status: Current Living Situation: Spouse Current Living Situation Comment: 1 level single family home 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 Physical Exam Physical Exam: Right hip contusion noted. Please refer to Dr. Packer's addendum for further physical examination findings. Results & Data Results & Data Vital Signs (Past 12 Hours) Vital Signs Temp Pulse Pulse Resp BP BP Pulse Ox 08/04/24 07:00 69 12 160/87 H 98 08/04/24 07:00 69 12 98 08/04/24 06:35 62 21 169/93 H 99 08/04/24 06:06 59 L 16 99 08/04/24 05:57 58 L 16 08/04/24 05:45 60 12 100 08/04/24 05:33 62 23 100 08/04/24 05:31 61 08/04/24 05:28 145/77 H 08/04/24 05:28 145/77 H 08/04/24 05:09 08/04/24 05:09 36.8 C 65 18 145/77 H 98 08/04/24 05:09 36.8 C 65 24 145/77 H 98 O2 Del Method 08/04/24 07:00 Room Air 08/04/24 07:00 Room Air 08/04/24 06:35 Room Air 08/04/24 06:06 08/04/24 05:57 08/04/24 05:45 08/04/24 05:33 08/04/24 05:31 08/04/24 05:28 08/04/24 05:28 08/04/24 05:09 Room Air 08/04/24 05:09 Room Air 08/04/24 05:09 Room Air Laboratory Results Short CBC 08/04/24 Range/Units 05:27 WBC 2.63 L (4.8-10.8) K/ul Hgb 9.6 L (14.0-18.0) g/dl Hct 28.1 L (42.0-52.0) % Plt Count 76 L (130-400) K/uL BMP 08/04/24 05:27 Sodium 139 Potassium 4.4 Chloride 110 H Carbon Dioxide 22 BUN 23 Creatinine 1.22 Glucose 180 H Calcium 8.5 L Cardiac Enzymes 08/04/24 Range/Units 05:27 Total Creatine Kinase 55 (30-223) U/L Liver Function 08/04/24 Range/Units 05:27 Total Bilirubin 3.3 H (0.2-1.0) mg/dl AST 34 (13-39) U/L ALT 18 (7-52) U/L Alkaline Phosphatase 156 H (34-104) U/L Albumin 3.0 L (3.4-5.0) gm/dl Diagnostic Findings Pelvis X-Ray 08/04/24 05:26 XR pelvis 1-2V routine CLINICAL HISTORY: trauma COMPARISON: CT of the abdomen and pelvis July 05, 2024. FINDINGS: The sacroiliac joints and symphysis pubis are intact. There is no acute fracture within the pelvis or hips. There are no osseous lesions. There is mild to moderate bilateral hip osteoarthritis. IMPRESSION: No fractures within the pelvis or hips. ACT 112: Negative or not required by law. Electronically signed by: Elan Alexander M.D. 08/04/2024 6:[address] 08/04/24 05:27 CT cervical spine wo con CT DOSE: 1242.95 mGy.cm CLINICAL HISTORY: 74 years-old Male with Trauma. Acute neck injury status post trauma COMPARISON: 07/05/2024 TECHNIQUE: Multiple axial CT images of the cervical spine were obtained without contrast. A dose lowering technique was utilized adhering to the principles of ALARA. FINDINGS: No fractures. No subluxation. Prevertebral soft tissues and the C1-C2 interval are intact. No pneumothorax. IMPRESSION: No acute fracture or subluxation. ACT 112: Negative or not required by law. The above report was generated using voice recognition software. It may contain grammatical, syntax or spelling errors. Electronically signed by: Yovany Gonzalez M.D. 08/04/2024 6:57 AM Chest X-Ray 08/04/24 05:27 XR chest 1V portable CLINICAL HISTORY: Trauma. COMPARISON STUDY: Chest radiograph June 12, 2024. Chest CT July 05, 2024. FINDINGS: Lungs are clear. There is no pneumothorax or pleural effusion. Cardiac size is normal. Mediastinal contours are normal. There is no evidence for pulmonary edema. IMPRESSION: No acute cardiopulmonary findings. ACT 112: Negative or not required by law. Electronically signed by: Elan Alexander M.D. 08/04/2024 6:[address] 08/04/24 05:27 CT head/brain wo con CLINICAL HISTORY: 74 years-old Male with Trauma. Acute head trauma TECHNIQUE: Multiple axial CT images of the head were obtained without contrast. A dose lowering technique was utilized adhering to the principles of ALARA. COMPARISON: 07/05/2024 FINDINGS: No acute intracranial hemorrhage, midline shift, intracranial mass, hydrocephalus, territorial ischemia or abnormal extra-axial collection. Involutional changes with mild chronic microvascular ischemic disease. Cerebral vascular calcifications. The calvarium is intact. Mild mucosal thickening of the paranasal sinuses. Dental caries. Mastoid air cells are clear. Prior bilateral lens repair. IMPRESSION: No acute intracranial abnormality or calvarial fracture. ACT 112: Negative or not required by law. The above report was generated using voice recognition software. It may contain grammatical, syntax or spelling errors. Electronically signed by: Yovany Gonzalez M.D. 08/04/2024 6:54 AM Medications Administered Sodium Chloride (Nss) 500 mls @ 80 mls/hr IV .[id number] JODI Stop: 09/03/24 07:29 Last Admin: 08/04/24 07:37 Dose: 80 mls/hr Documented By: RALF Discontinued Medications Lorazepam (Lorazepam 1 Mg/1 Ml Syr Ed Inj Use) 0.5 mg IV ONE STA Stop: 08/04/24 06:02 Last Admin: 08/04/24 06:10 Dose: 0.5 mg Documented By: MARGI Code Status & VTE Plan Code Status FULL CODE Supervising Physician Co-Signing Physician Notes I have seen and discussed the case with the collaborating advanced practitioner. I agree with the above H&P. I have reviewed and confirmed the patients medical history, the findings on physical examination, and the patients diagnosis and treatment plan with Shirley ARCEO and agree with the information documented. In short, Mr. Hale is a 74 yo gentleman with complex medical history notable for type 2 diabetes, CKD stage 3, restrictive lung disease, liver cirrhosis with portal hypertension status post tips, liver cancer, prostate cancer S/P radiation with radiation cystitis who is admitted for hepatic encephalopathy and trauma sustained after fall resulting in closed head injury and right hip contusion. Patient will respond to name but does not engage in interview. Reported decreased compliance with home lactulose. GENERAL APPEARANCE: AxO1 will respond to name with a verbal utterance, but does not answer or follow commands, resting on left side, no agitation HEENT: NC, AT. MMM. EOMI, clear conjunctiva, oropharynx clear. NECK: C-Collar in space, no tenderness noted to palpation along paraspinal muscles or midline HEART: Normal rate and regular rhythm, normal S1/S1, no m/r/g LUNGS: CTAB, moving air well. No crackles or wheezes are heard. ABDOMEN: Soft, nontender, nondistended with good bowel sounds heard. BACK: No CVAT, no obvious deformity. right hip contusion EXTREMITIES: Without cyanosis, clubbing or edema. NEUROLOGICAL: Grossly nonfocal. moving all 4 extremities, withdrawals to stimuli Skin: Warm, noted rash on abdomen/legs, chronic #Traumatic fall #Closed head injury #Right hip contusion CT negative for fracture -Maintain c spine precautions until patient able to verbally follow commands -CT head on admission stable/negative -XRAY pelvis, no fracture noted Topical analgesia prn, kpad 0.25 dilaudid for severe pain, will attempt other conservative measures #Acute hepatic encephalopathy #Cirrhosis 2/2 [FOFANA, HCC, decompensated - History of decompensation: yes - MELD-Na: 15 on admission - PSE: evidence of HE on exam, c/w lactulose as able -Patient not tolerating PO 2/2 encephalopthy -GI consult: NG for lactulose, BRBPR with lacutolose enema at this time - SBP: not concern at this time, abdoment soft, protuberant no fluid shift - EV: No evidence of GIB presently, close monitoring - HRS: Cr at baseline - Daily CMP + INR to calculate MELD; low Na diet - GI consult #chronic normocytic anemia baseline around 7 elevated 2/2 likely to dehydration, anticipate drop 2/2 volume resusication CTM for signs of bleed iso hemorrhagic cystitis/BRBPR #BRBPR attempted lactulose enema, however, blood clots noted stop enema GI consult, ?radiation proctitis, NG for lactulose administration? #Abnormal UA #Radiation/Hemorrhagic Cystitis history of complicated cysitis, UA culture pending corynebacterium and proteus on prior cx -Continue with Vanc for corynebacterium and cefepime for proteus hx rest of plan per hp Patient still full code, has established with Palliative, will continue GoC conversations I spent a total of 35 minutes coordinating, documenting, and providing care for this patient excluding time spent in the performance of separately billed services. All of the aforementioned completed outside of collaborating with the assigned advanced practitioner for a full treatment plan. I have reviewed the advanced practitioner's documentation, and I agree with, and take responsibility for the plan of care (1) Fall Encounter type: initial encounter Qualified Code(s): W19.XXXA - Unspecified fall, initial encounter (3) UTI (urinary tract infection) Hematuria presence: with hematuria Urinary tract infection type: acute cystitis Qualified Code(s): N30.01 - Acute cystitis with hematuria
[2024-08-04 08:20] LABS: Appearance Urine Cloudy (Clear); Bilirubin Urine Negative (Negative); Blood Urine 3+ (Negative); Color Urine Red; Glucose Urine UA Negative (Negative); Ketones Urine Negative (Negative); Leukocyte Esterase Urine Trace (Negative); Nitrite Urine Negative (Negative); Protein Urine 3+ (Negative); Urobilinogen Urine Positive (Negative)
[2024-08-04 08:23] LABS: RBC Urine >20 /hpf (0-2)
[2024-08-04 08:24] LABS: Bacteria Urine 1+ (None Seen)
[2024-08-04] MEDS ORDERED: ACETAMINOPHEN 325 MG TAB PO PRN (10:03)
[2024-08-04] MEDS ORDERED: VANCOMYCIN CONSULT ACTIVE PRN (10:03)
[2024-08-04] MEDS ORDERED: GLUCAGON FOR INJ 1 MG VIAL SQ PRN (10:03)
[2024-08-04] MEDS ORDERED: PHARMACY GLYCEMIC MGMT CONSULT PRN (10:03)
[2024-08-04] MEDS ORDERED: ONDANSETRON INJ 2 MG/ML 2 ML VIAL IV PRN (10:03)
[2024-08-04] MEDS ORDERED: DEXTROSE 50% 50 ML SYRINGE IV PRN (10:03)
[2024-08-04] MEDS ORDERED: GLUCOSE 10 TAB/TUBE PO PRN (10:03)
[2024-08-04] MEDS ORDERED: OLANZapine 10 MG/2.1 ML SDV IM PRN (10:03)
[2024-08-04] MEDS ORDERED: CARBOHYDRATES FOR HYPOGLYCEMIA PO PRN (10:03)
[2024-08-04] MEDS ORDERED: VANCOMYCIN HCL 1,250 MG in SODIUM CHLORIDE 0.9% 500 ML IV SCH (10:03)
[2024-08-04] MEDS ORDERED: HYDROmorphone INJ 0.5 MG/0.5 ML SYR IV PRN (10:03)
[2024-08-04] MEDS ORDERED: GLUCOSE 40% GEL 15 GM TUBE PO PRN (10:03)
[2024-08-04] MEDS: LACTULOSE SYRUP 20 GM/30 ML UDC PO SCH (11:03)
[2024-08-04] MEDS: PANTOprazole 40 MG TAB PO SCH (11:03)
[2024-08-04] MEDS: SODIUM CHLORIDE 0.9% 1,000 ML IV SCH (11:09)
[2024-08-04] MEDS: VANCOMYCIN HCL 1,750 MG in SODIUM CHLORIDE 0.9% 500 ML IV ONE (11:10)
[2024-08-04] MEDS: CEFEPIME 2,000 MG in SYRINGE 0 ML IV SCH (11:10)
[2024-08-04] MEDS: DICLOFENAC SOD 1% GEL 100 GM TUBE EXT SCH (11:10)
[2024-08-04] MEDS: LACTULOSE 200GM/700ML WTR ENEMA PR SCH (12:16)
[2024-08-04] MEDS: INSULIN ASPART PER UNIT CHARGE SC SCH (12:49)
[2024-08-04] MEDS: hydrALAZINE HCL 20 MG/ML VIAL IV PRN (12:49)
[2024-08-04] MEDS: LANTUS PER UNIT CHARGE SQ ONE (12:49)
--- NOTE | 2024-08-04 13:08 | Gastrointestinal Consultation ---
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 - Continue lactulose. can titrate dose to have 2-3 bowel movements daily. - Continue Xifaxan 550mg bid. - No ETOH - No NSAIDs - Avoid hepatotoxin - Low NA diet, less than 2G daily - Less than 2G acetaminophen containing products daily. - he should follow with his primary GI team at [facility] on discharge. (4) Blood in stool: Recent colonoscopy about a year. hgb above reported baseline. Will discuss case further with Dr. Jacques. Further recommendations to follow. Supervising Physician Co-Signing Physician Notes I examined the patient and reviewed patient's chart , laboratory data and i maging studies. I agree with with assessment and plan of care as suggested by advanced practice provider. The patient will need an NG tube for administration of lactulose. Monitor ammonia level. History of Present Illness Reason for Consultation: rectal bleeding Requesting Physician: Jen MAXWELL Attending Physician: Ale Velazquez MD History of Present Illness Patient is a 74 year old male with a past medical history of DM type II, CKD stage III, dyslipidemia, chronic gout of multiple sites, restrictive lung disease, pulmonary hypertension, gastric antral vascular ectasia, esophageal varices, history of portal vein thrombosis, cirrhosis of liver, hepatic encephalopathy, GERD, history of liver cell carcinoma, prostate cancer, radiation cystitis, acquired thrombocytopenia, chronic anemia (baseline Hgb - 8) who presented to the ED today via EMS after falling off of the couch this morning after having a fall last evening. history is obtained from chart as well as nursing as patient does not provide any meaningful history. Per chart, family has been noticing more confusion and patient has been having issues with bowels being "slowed down". Per chart, it sounds like he was only using half of his lactulose. His ammonia was found to be 153 upon evaluation in the ED. Per nursing, they were going to give him a lactulose enema and when doing so he had passed some stool with light pink on it and then this was followed by blood and clots. stool brown. patient offers no information. 08/04/24 hgb 9.6. ammonia 153. He follows with [facility] GI as outpatient. Colonoscopy 08/09/23 internal hemorrhoids, moderatesigmoid/descending colon diverticulosis, colon polyps. EGD 08/09/23 portal hypertensive gastropathy. Allergies Allergy/AdvReac Type Severity Reaction Status Date / Time No Known Allergies Allergy Mild Verified 08/04/24 08:40 Home Medications Medication Instructions Recorded Confirmed Type allopurinol 100 mg tablet 200 mg PO QAM 05/16/20 08/04/24 History Lactobacil.acidophilus-Bifido.animalis 1 cap PO QAM 05/17/23 08/04/24 History 5 billion cell sprinkle capsule (Probiotic) ferrous sulfate 325 mg (65 mg 650 mg PO QAM 05/17/23 08/04/24 History iron) tablet (iron) djpbacntblgu-lae-mqkol acid-vit 1 tab PO DAILY 05/17/23 08/04/24 History K-lycop 400 mcg-20 mcg-370 mcg tablet (Men's 50 Plus Multivitamin) duloxetine 30 mg capsule,delayed 30 mg PO QAM 02/02/24 08/04/24 History release pantoprazole 40 mg tablet,delayed 40 mg PO AMPM 02/02/24 08/04/24 History release rifaximin 550 mg tablet (Xifaxan) 550 mg PO AMHS 02/02/24 08/04/24 History finasteride 5 mg tablet 5 mg PO QAM 03/20/24 08/04/24 History lactulose 10 gram oral packet 10 g PO BID PRN . 03/20/24 08/04/24 History (Kristalose) mirtazapine 30 mg tablet 30 mg PO HS 03/20/24 08/04/24 History acetylcysteine 600 mg capsule 600 mg PO DAILY 05/03/24 08/04/24 History cholestyramine (with sugar) 4 gram 1 ea PO BID 05/20/24 08/04/24 History powder for susp in a packet insulin glargine 100 unit/mL (3 25 unit subcut QPM 05/20/24 08/04/24 History mL) subcutaneous pen (Lantus Solostar U-100 Insulin) oxybutynin chloride 5 mg tablet 5 mg PO TID PRN Bladder Spasms 05/20/24 08/04/24 History solifenacin 5 mg tablet 5 mg PO DAILY 05/20/24 08/04/24 History triamcinolone acetonide 0.1 % 1 applic topical DAILY 05/20/24 08/04/24 History topical cream zinc gluconate 50 mg tablet 50 mg PO DAILY ##0 05/20/24 08/04/24 History furosemide 40 mg tablet 40 mg PO QAM #30 tabs 05/30/24 08/04/24 Rx spironolactone 100 mg tablet 100 mg PO QAM #30 tabs 05/30/24 08/04/24 Rx lactulose 20 gram/30 mL oral 30 ml PO QID 08/04/24 08/04/24 History solution magnesium chloride 64 mg 64 mg PO QAM 08/04/24 08/04/24 History (magnesium chloride) tablet,delayed release (Mag 64) Patient History Medical History CKD (chronic kidney disease) stage 3, GFR 30-59 ml/min Thrombocytopenia DM type 2 (diabetes mellitus, type 2) Hx of malignant neoplasm of prostate History of blood transfusion 11/2022 Hepatocellular carcinoma Spinal fracture of T12 vertebra History of recent hospitalization 06/2023 [facility] hepatic encephalopathy Liver spots Under surveillance, stable per patient Anxiety and depression 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 Anemia of chronic disease under surveillance History of panic attacks Gout No current issues GERD (gastroesophageal reflux disease) GAVE (gastric antral vascular ectasia) Hypertension Hx Esophageal varices EGD 05/22/23 ([facility]): Grade 1 varices in distal esophagus without high risk stigmata Upper GI bleed Hx Psoriasis Surgical History History of left cataract surgery History of right cataract surgery History of prostate biopsy malignant S/P TIPS (transjugular intrahepatic portosystemic shunt) History of esophagogastroduodenoscopy (EGD) Most recent 05/2023 [facility] History of colonoscopy with polypectomy History of tonsillectomy and adenoidectomy History of abdominal paracentesis Multiple, most recent 01/2023 Family History Father , "3/4 liver gone due to drinking" Colorectal cancer, Onset Age: 63 Mother Lung cancer Daughter Cancer cervical and thyroid cancers Ovarian cancer Other No family history of adverse response to anesthesia 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 Smoking Status: Unknown if ever smoked Second Hand Exposure: No; Hx Alcohol Use: No Hx Substance Use: No Preferred Language: Pashto Communication Ability: Impaired Communication Ability Comment: AMS, unable to communicate Visual Impairment: No Limitations Hearing Ability: Normal Cement Loader Required: No Beliefs That Will Affect Care: None marital status: Current Living Situation: Spouse Current Living Situation Comment: 1 level single family home 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 How many Children do You have: 6 How many Children do You have Comment: one , eldest daughter in her sleep from seizure disorder Feels Safe at Home: Yes Childhood Exposure to Second-Hand Smoke: Yes Diet Comment: "I watch my sugar, average fasting is 140 mg/dl" caffeine: Yes (cola, sugar free, decaf) during the past year weight has: remained stable Dental Care, Regularly: No Physical Activity Frequency: Does not Exercise Seatbelt Use: always Sunscreen Use: Yes Assistive Devices: Glasses and Walker Review of Systems Review of Systems: Unobtainable due to cognitive status Physical Exam Constitutional: WD/WN, vitals as above Respiratory: normal respiratory effort, lungs clear to auscultation Cardiovascular: Rate/Rhythm: regular rate and regular rhythm Gastrointestinal (Abdomen): normal bowel sounds. soft. Psychiatric: lethargic Results & Data Vital Signs (Past 12 Hours) Vital Signs Temp Pulse Pulse Pulse Resp BP BP 08/04/24 11:45 97.9 F 69 17 174/63 H 08/04/24 10:06 60 08/04/24 10:05 98.1 F 58 L 18 165/69 H 08/04/24 09:00 64 12 167/82 H 08/04/24 08:00 69 14 173/92 H 08/04/24 07:00 69 12 160/87 H 08/04/24 07:00 69 12 08/04/24 06:35 62 21 169/93 H 08/04/24 06:06 59 L 16 08/04/24 05:57 58 L 16 08/04/24 05:45 60 12 08/04/24 05:33 62 23 08/04/24 05:31 61 08/04/24 05:28 145/77 H 08/04/24 05:28 145/77 H 08/04/24 05:09 08/04/24 05:09 98.3 F 65 18 145/77 H 08/04/24 05:09 98.3 F 65 24 145/77 H Pulse Ox O2 Del Method 08/04/24 11:45 98 Room Air 08/04/24 10:06 08/04/24 10:05 96 Room Air 08/04/24 09:00 96 Room Air 08/04/24 08:00 98 Room Air 08/04/24 07:00 98 Room Air 08/04/24 07:00 98 Room Air 08/04/24 06:35 99 Room Air 08/04/24 06:06 99 08/04/24 05:57 08/04/24 05:45 100 08/04/24 05:33 100 08/04/24 05:31 08/04/24 05:28 08/04/24 05:28 08/04/24 05:09 Room Air 08/04/24 05:09 98 Room Air 08/04/24 05:09 98 Room Air Coding Level of Care Code 09706 INT INP/OBS CARE 2/55MIN Diagnoses Altered mental status R41.82 Hepatic encephalopathy K76.82 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
[2024-08-04 13:28] LABS: Hemoglobin 8.9 g/dl (14.0-18.0)
--- NOTE | 2024-08-04 13:29 | Pharmacy Report ---
Pharmacy Glycemic Short Note 2 - Date of Service August 04, 2024 - Glycemic Short BSG Results (Last 24 hours): 08/04/24 08/04/24 08/04/24 05:27 05:49 12:06 Glucose 180 H POC Glucose 177 H POC Glucose (other) 174 H OUTPATIENT ANTIDIABETIC REGIMEN: * Lantus 25 units SC qPM HbA1c ordered for 08/05/24 ASSESSMENT: * SILVIO is a 74 year old male known to pharmacy glycemic service due to numerous past consultations/hospitalizations * Presented to ED this morning w/ altered mental status s/p fall * Multiple possible etiologies of AMS, including hepatic encephalopathy, UTI, s/p fall * Patient is NPO at this time, will give reduced basal dose today * Will use past inpatient glycemic data to guide initial Novolog parameters PLAN FOR INPATIENT GLYCEMIC CONTROL: * Basal insulin * Lantus 15 units SQ x 1 * Reassess in AM * Bolus insulin * NovoLog per scale ACHS or Q6hrs while NPO * Goal Range: Low 110 mg/dL - High 140 mg/dL * Correction Factor: 30 mg/dL/unit * Nutritional / Prandial insulin per carb ratio of 1 unit per 9 grams CHO consumed
--- NOTE | 2024-08-04 14:20 | Pharmacy Report ---
Pharmacy PK ABX Note - Date of Service August 04, 2024 - Assessment and Plan Assessment 74 year old M receiving empiric vancomycin and cefepime for treatment of complicated UTI w/ history of Corynebacterium urealyticum (07/05/24) and Proteus mirabilis (04/20/24) w/ resistance to multiple antibiotics. Urine culture obtained 08/04/24 and is pending. Pertinent PMH includes T2DM, CKD, hx of prostate cancer and radiation cystitis, hepatocellular carcinoma, and hepatic cirrhosis. SCr appears to be at/near baseline at this time. Day # 1 of antimicrobial therapy. Plan Vancomycin * Loading dose: 1750 mg IV x 1 * Maintenance dose: 1500 mg IV every 24 hours * Regimen is predicted to achieve target AUC/SAMEER of 400-600 mg/L.hr * Random level ordered for: 08/06/24 Pharmacy will continue to follow and will adjust dose/frequency as necessary. Thank you. Pharmacy has transitioned to AUC monitoring for vancomycin. AUC/SAMEER is the preferred PK/PD target and is associated with decreased risk of nephrotoxicity c ompared to traditional trough targets.
[2024-08-04 15:41] LABS: Adenovirus PCR Not Detected (NotDetected); Bordetella parapertussis PCR Not Detected (NotDetected); Bordetella pertussis PCR Not Detected (NotDetected); Chlamydia pneumoniae PCR Not Detected (NotDetected); Coronavirus 229E PCR Not Detected (NotDetected); Coronavirus CoV-2 (COVID19)PCR Not Detected (NotDetected); Coronavirus HKU1 PCR Not Detected (NotDetected); Coronavirus NL63 PCR Not Detected (NotDetected); Coronavirus OC43PCR Not Detected (NotDetected); Human Metapneumovirus PCR Not Detected (NotDetected); Influenza A PCR Not Detected (NotDetected); Influenza B PCR Not Detected (NotDetected); Mycoplasma pneumoniae PCR Not Detected (NotDetected); Parainfluenza Virus 1 PCR Not Detected (NotDetected); Parainfluenza Virus 2 PCR Not Detected (NotDetected); Parainfluenza Virus 3 PCR Not Detected (NotDetected); Parainfluenza Virus 4 PCR Not Detected (NotDetected); Respiratory Syncytial VirusPCR Not Detected (NotDetected); Rhinovirus/Enterovirus PCR Not Detected (NotDetected)
--- NOTE | 2024-08-04 16:07 | Electrocardiogram Report ---
Test Reason : Blood Pressure : */* mmHG Vent. Rate : 61 BPM Atrial Rate : 61 BPM P-R Int : 180 ms QRS Dur : 92 ms QT Int : 480 ms P-R-T Axes : 68 -18 46 degrees QTcB Int : 483 ms Normal sinus rhythm Poor R wave progression, consider anterior [place] vs. lead placement vs. LVH Abnormal ECG When compared with ECG of 05-Jul-2024 06:51, Premature ventricular complexes are no longer Present Confirmed by Jose Ramon Rizvi ([id number]) on 08/04/2024 4:07:39 PM Referred By: Confirmed By: Jose Ramon Rizvi
[2024-08-04] MEDS: ACETAMINOPHEN 325 MG TAB PO PRN (20:28)
[2024-08-04] MEDS: MAGNESIUM CHLORIDE W/CALCIUM 64MG DELAYED REL TAB PO SCH (20:28)
[2024-08-04] MEDS: oxyBUTYnin chloride 5 MG TAB PO PRN (20:29)
[2024-08-04] MEDS: CHOLESTYRAMINE LIGHT 4 GM PKT PO SCH (20:30)
[2024-08-04] MEDS: MIRTAZAPINE TAB 15 MG TAB PO SCH (20:30)
[2024-08-04] MEDS: MICONAZOLE NITRATE POWDER 85 GM EXT PRN (20:31)
[2024-08-04] MEDS: rifAXIMin 550 MG TABLET PO SCH (20:31)
[2024-08-04] MEDS ORDERED: LANTUS PER UNIT CHARGE SQ SCH (21:00)
[2024-08-04] MEDS: VANCOMYCIN HCL 1,500 MG in SODIUM CHLORIDE 0.9% 500 ML IV SCH (21:41)
[2024-08-05 06:23] LABS: Hematocrit (blood only) 24.6 % (42.0-52.0); Hemoglobin 8.3 g/dl (14.0-18.0); Mean Corpuscular Hemoglobin 32.8 pg (25.0-34.0); Mean Corpuscular Hgb Conc 33.7 g/dL (32.0-36.0); Mean Corpuscular Volume 97.2 fL (80.0-100.0); Mean Platelet Volume 12.4 fL (9.4-12.4); Platelet Count 58 K/uL (130-400); RDW Coefficient of Variation 18.3 % (11.5-14.5); RDW Standard Deviation 65.1 fL (36.4-46.3); Red Blood Count 2.53 M/uL (4.70-6.10); White Blood Count 2.19 K/ul (4.8-10.8)
[2024-08-05 06:51] LABS: Albumin Globulin Ratio 0.8 (0.9-2); Albumin Level 2.6 gm/dl (3.4-5.0); BUN Creatinine Ratio 17.6 (10-20); Bilirubin,Total 5.1 mg/dl (0.2-1.0); Calcium 7.8 mg/dl (8.6-10.3); Creatinine Clr Calc Pharmacy 61.8 ml/min; Est GFR (Non-African American) 67.3 ml/min; Globulin 3.2 gm/dl (2.5-4.0); Magnesium 1.6 mg/dl (1.7-2.4); Potassium 4.1 mmol/L (3.5-5.1); Total Protein 5.8 gm/dl (6.0-8.3)
[2024-08-05 08:28] LABS: Estimated Average Glucose 108 mg/dl; Hemoglobin A1C 5.4 % (4.5-5.6)
--- NOTE | 2024-08-05 09:11 | Hospitalist Progress Note ---
Date of Service August 05, 2024 Assessment & Plan (1) Fall: (2) Hepatic encephalopathy: (3) UTI (urinary tract infection): Plan Per admitting service notes with addendum: Luis Hale is a 74y/o M with PMHx of DM type II [on basal insulin], CKD stage III, dyslipidemia, chronic gout of multiple sites, restrictive lung disease, pulmonary hypertension, gastric antral vascular ectasia, esophageal varices, history of portal vein thrombosis, cirrhosis of liver, hepatic encephalopathy, GERD, history of liver cell carcinoma, prostate cancer, radiation cystitis, acquired thrombocytopenia, chronic anemia [baseline Hgb ~8] and other problems listed below who presented to the ED via EMS after falling off of the couch this morning. 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 Unable to elicit any history from patient. Patient's son, Alex, reports that he has been acting confused since late last night. Notes that his bowel movements have "slowed down" over the last couple of days. Reports patient has been taking about half packet per day of his 10g lactulose since his last admission. Patient had a mechanical fall last night where he landed on his right hip and sustained a bruise to that region. Patient then "slipped off the couch" this morning. This was an unwitnessed event. No known loss of consciousness. Most recent admission at [facility] 07/05/24-07/10/24. Fall, Right Hip Contusion: All imaging performed in ED was negative for acute injuries/fractures. C-collar in place. Fall precautions. R hip contusion noted on exam. PRN low-dose IV Dilaudid. Topical Voltaren, heating pad. Need to clear C-spine when patient is more alert/communicative. PT/OT evals pending. Pain well-controlled PT and OT evaluation Hepatic Encephalopathy: Ammonia 153 on presentation. Unsure on patient's ability to swallow given AMS. NPO except sips/meds for now. Continue IVF w/ 1L NSS. Scheduled po lactulose to be used first. If patient unable to tolerate po intake, can use lactulose enema (communication order placed). Goal of 3-4 BMs/day. Repeat ammonia level in AM. Ammonia level 62 Mental status improving Continue lactulose and rifaximin Possible Metabolic encephalopathy in setting of UTI Acute UTI: UA appears infected. No leukocytosis, no overt urinary symptoms per patient's son. RVP pending for infectious w/u. Will treat w/ IV vancomycin + cefepime for now given h/o Corynebacterium urealyticum & Proteus mirabilis. Urine cx pending. Follow-up cultures Continue antibiotics Hepatic Cirrhosis 2/2 FOFANA, H/O Ascites H/O Esophageal Varices & Gastric Antral Vascular Ectasia Patient was previously undergoing paracentesis [id number]. Most recent therapeutic paracentesis performed on 06/15/24 - 1.2L was removed from a pocket of fluid identified in the LLQ. Did not f/u w/ GI after his most recent admission. Patient met [facility] Medicine on 07/22/24. Discussion was had regarding starting hyperbaric oxygen chamber 3h/day for 12 weeks. Alk phos 156, total bili 3.3 on admission. Continue Xifaxan BID. Scheduled lactulose while inpatient 2/2 presenting hepatic encephalopathy. 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 May benefit from GI consultation. DM Type II: Hold home performance consultant, basal/bolus regimen while inpatient. Hgb A1c 5.8% on 06/30/24. BCG checks ACHS. Glycemic pharmacy consulted. CKD Stage III: Cr 1.22 on admission, baseline Cr ~1.3-1.6 per chart review. Avoid nephrotoxic meds when able, monitor renal fx. Renal dosing PRN. H/O Prostate Cancer & Radiation Cystitis: Follows [facility] Hematology/Oncology [Dr. Ramires]. Completed radiation therapy to the prostate on 04/05/21. Pt also follows [facility] Urology [Dr. Frank Peraza]. History of radiation cystitis s/p cystourethroscopy with clot evacuation and fulguration. Can continue finasteride, oxybutynin and solifenacin. Hepatocellular Carcinoma Chronic Anemia & Thrombocytopenia: Underwent transarterial bland embolization at [facility] on 06/11/24. Hgb 9.6 on admission, baseline Hgb ~8. Plt count 76k on admission - stable. Has previously required frequent blood transfusions in the past. He was also treated multiple times w/ iron infusions. Continue FREE LANCE ARTIST iron supplement. Other Chronic Medical Conditions: Gout, anxiety/depression --> Can continue FREE LANCE ARTIST home meds for these specific conditions. PRN IM olanzapine for agitation ordered. DVT Prophylaxis: SCDs/TEDs for now. Code Status: FULL CODE - Per discussion with the patient's son, Alex, over the phone. PCP: Kristen Vences DO Disposition: Admission and Anticipated Discharge Date Admission Date: August 04, 2024 Subjective Follow-up for hepatic encephalopathy, UTI, etc. Seen resting in bed, sleeping but easily awakened Oriented x 3, answering all questions appropriately States he feels tired but okay overall Denies abdominal pain, problems with voiding or urination No fevers or chills, nausea vomiting, shortness of breath, chest pain No other new symptoms Review of Systems Review of Systems: all noted and negative except for above Physical Exam Physical Exam: General- oriented x 3, not in distress, speaks in sentences with no effort or accessory muscle use Eyes- anicteric Neck- no JVD Lungs- clear breath sounds bilaterally, No rales or wheezing Heart- normal rate, regular rhythm; no murmurs Abdomen- normal bowel sounds, nondistended, soft, no tenderness Extremities- no pretibial edema, no calf tenderness Neuro- alert, oriented x 3; no gross focal neurologic deficits Skin- warm & dry Results & Data Results & Data Vital Signs (Past 12 Hours) Vital Signs Temp Pulse Pulse Resp BP BP Pulse Ox 08/05/24 08:12 36.8 C 66 18 131/63 97 08/05/24 07:07 77 08/05/24 03:30 36.8 C 69 16 161/70 H 98 08/04/24 23:28 08/04/24 22:09 36.6 C 70 18 176/75 H 98 08/04/24 21:58 80 O2 Del Method 08/05/24 08:12 Room Air 08/05/24 07:07 08/05/24 03:30 Room Air 08/04/24 23:28 Room Air 08/04/24 22:09 Room Air 08/04/24 21:58 all noted and reviewed including below (1) Fall Encounter type: initial encounter Qualified Code(s): W19.XXXA - Unspecified fall, initial encounter (3) UTI (urinary tract infection) Hematuria presence: with hematuria Urinary tract infection type: acute cystitis Qualified Code(s): N30.01 - Acute cystitis with hematuria
[2024-08-05] MEDS: MULTIVITAMIN TAB PO SCH (09:25)
[2024-08-05] MEDS: ADVANCED PROBIOTIC 625 MG CAPSULE PO SCH (09:26)
[2024-08-05] MEDS: ZINC SULFATE 220 MG CAPSULE PO SCH (09:26)
[2024-08-05] MEDS: OXYBUTYNIN CHLORIDE XL 5 MG TABCR PO SCH (09:26)
[2024-08-05] MEDS: DULoxetine HCL 30 MG CAP PO SCH (09:27)
[2024-08-05] MEDS: allopurinoL 100 MG TAB PO SCH (09:28)
[2024-08-05] MEDS: ACETYLCYSTEINE 600 MG CAP PO SCH (09:28)
[2024-08-05] MEDS: FINASTERIDE 5 MG TAB PO SCH (09:28)
--- NOTE | 2024-08-05 09:51 | Gastroenterology Progress Note ---
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 can titrate dose to have 2-3 bowel movements daily. He had been uncooperative with the NG. - Continue Xifaxan 550mg bid. - No ETOH - No NSAIDs - Avoid hepatotoxin - Low NA diet, less than 2G daily - Less than 2G acetaminophen containing products daily. - he should follow with his primary GI team at [facility] on discharge. (4) Blood in stool: Plan: no further blood noted. continue to monitor. May have just been secondary to irritation to hemorrhoids with suppository use. Admission and Anticipated Discharge Date Admission Date: August 04, 2024 Supervising Physician Co-Signing Physician Notes I examined the patient and reviewed patient's chart , laboratory data and imaging studies. I agree with with assessment and plan of care as suggested by advanced practice provider Subjective Patient did not cooperate to have NG placed last evening. Patient was too lethargic to awaken to provide history. Spoke with nursing. no further bowel movements or rectal bleeding. He was able to get in a dose of lactulose last evening with applesauce. no other GI concerns per nursing. 08/05/24 ammonia 62 (previously 153). 08/05/24 hgb 8.3 (previously 8.9) Review of Systems Review of Systems: Unobtainable due to cognitive status Physical Exam Constitutional: WD/WN, vitals as above Respiratory: normal respiratory effort, lungs clear to auscultation Cardiovascular: Rate/Rhythm: regular rate and regular rhythm Gastrointestinal (Abdomen): normal bowel sounds, soft. Psychiatric: lethargic, difficult to wake up. 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
[2024-08-05] MEDS: FERROUS SULFATE 325 MG TAB PO SCH (10:14)
[2024-08-05] MEDS: LANTUS PER UNIT CHARGE SQ SCH (12:44)
[2024-08-05] MEDS ORDERED: Nursing to Pharmacy Communication SCH (12:45)
--- NOTE | 2024-08-05 13:20 | Pharmacy Report ---
Pharmacy Glycemic Short Note 2 - Date of Service August 05, 2024 - Glycemic Short BSG Results (Last 24 hours): 08/04/24 08/05/24 08/05/24 18:15 00:19 05:58 Glucose 107 H POC Glucose 143 H 153 H 08/05/24 08/05/24 06:14 12:15 Glucose POC Glucose 118 H 194 H OUTPATIENT ANTIDIABETIC REGIMEN: * Lantus 25 units SC qPM HbA1c: 5.4% (08/05/24) ASSESSMENT: 08/05/24: * Blood sugars reasonably controlled yesterday * Received 19 units of insulin (15 units of basal and 4 units of prandial/correctional bolus) * Diet advanced from NPO to T2DM at lunch today * Will continue with reduced basal dose today, possible increase in AM 08/04/24: * is a 74 year old male known to pharmacy glycemic service due to numerous past consultations/hospitalizations * Presented to ED this morning w/ altered mental status s/p fall * Multiple possible etiologies of AMS, including hepatic encephalopathy, UTI, s/p fall * Patient is NPO at this time, will give reduced basal dose today * Will use past inpatient glycemic data to guide initial Novolog parameters PLAN FOR INPATIENT GLYCEMIC CONTROL: * Basal insulin * Lantus 15 units SQ x 1 at lunch today * Bolus insulin * NovoLog per scale ACHS or Q6hrs while NPO * Goal Range: Low 110 mg/dL - High 140 mg/dL * Correction Factor: 30 mg/dL/unit * Nutritional / Prandial insulin per carb ratio of 1 unit per 9 grams CHO consumed
[2024-08-05] MEDS: INSULIN ASPART PER UNIT CHARGE SC SCH (17:36)
[2024-08-06 07:49] LABS: Basophils # (auto) 0.01 K/uL (0.00-0.20); Basophils % (auto) 0.5 %; Eosinophils % (auto) 9.5 %; Hematocrit (blood only) 21.5 % (42.0-52.0); Hemoglobin 7.2 g/dl (14.0-18.0); Immature Granulocytes # (auto) 0.01 K/uL (0.01-0.20); Immature Granulocytes % (auto) 0.5 %; Lymphocytes # (auto) 0.43 K/uL (1.20-3.40); Lymphocytes % (auto) 20.4 %; Mean Corpuscular Hgb Conc 33.5 g/dL (32.0-36.0); Mean Corpuscular Volume 98.6 fL (80.0-100.0); Mean Platelet Volume 12.8 fL (9.4-12.4); Monocytes # (auto) 0.17 K/uL (0.11-0.59); Monocytes % (auto) 8.1 %; Neutrophils # (auto) 1.29 K/uL (1.40-6.50); Platelet Count 52 K/uL (130-400); RDW Coefficient of Variation 18.2 % (11.5-14.5); RDW Standard Deviation 66.3 fL (36.4-46.3); Red Blood Count 2.18 M/uL (4.70-6.10); White Blood Count 2.11 K/ul (4.8-10.8)
[2024-08-06 08:38] LABS: Acanthocytes 1+; Anisocytosis Present; Tear Drop Cells 1+
[2024-08-06] MEDS ORDERED: LANTUS PER UNIT CHARGE SQ SCH (09:00)
--- NOTE | 2024-08-06 14:33 | Pharmacy Report ---
Pharmacy Glycemic Short Note 2 - Date of Service August 06, 2024 - Glycemic Short BSG Results (Last 24 hours): 08/05/24 08/05/24 08/06/24 17:16 20:14 08:17 POC Glucose 197 H 177 H 181 H 08/06/24 12:16 POC Glucose 217 H OUTPATIENT ANTIDIABETIC REGIMEN: * Lantus 25 units SC qPM HbA1c: 5.4% (08/05/24) ASSESSMENT: 08/06/24: * BSGs yesterday were elevated above goal but not above 200 mg/dl. Fasting BSG today was 181 mg/dl. * During previous recent admissions, patient used to receive 18 units of basal insulin with dinner. So, increased basal insulin dose today to 18 units. * Novolog parameters tightened this morning. Pre-lunch BSG trended up to 217 mg/dl but of note patient received his morning Novolog insulin dose a little late (that is after 10 am today). Hence the effect of this dose is not reflected in the pre-lunch BSG value. * Anticipate sugars to trend down by evening. 08/05/24: * Blood sugars reasonably controlled yesterday * Received 19 units of insulin (15 units of basal and 4 units of prandial/correctional bolus) * Diet advanced from NPO to T2DM at lunch today * Will continue with reduced basal dose today, possible increase in AM 08/04/24: * is a 74 year old male known to pharmacy glycemic service due to numerous past consultations/hospitalizations * Presented to ED this morning w/ altered mental status s/p fall * Multiple possible etiologies of AMS, including hepatic encephalopathy, UTI, s/p fall * Patient is NPO at this time, will give reduced basal dose today * Will use past inpatient glycemic data to guide initial Novolog parameters PLAN FOR INPATIENT GLYCEMIC CONTROL: * Basal insulin * Lantus 18 units SQ daily with dinner * Bolus insulin * NovoLog per scale ACHS or Q6hrs while NPO * Goal Range: Low 110 mg/dL - High 140 mg/dL * Correction Factor: 25 mg/dL/unit * Nutritional / Prandial insulin per carb ratio of 1 unit per 8 grams CHO consumed
[2024-08-06 15:14] LABS: Hematocrit (blood only) 22.1 % (42.0-52.0); Hemoglobin 7.3 g/dl (14.0-18.0)
--- NOTE | 2024-08-06 17:18 | Hospitalist Progress Note ---
Date of Service August 06, 2024 Assessment & Plan (1) Fall: (2) Hepatic encephalopathy: (3) UTI (urinary tract infection): Plan Per admitting service notes with addendum: Luis Hale is a 74y/o M with PMHx of DM type II [on basal insulin], CKD stage III, dyslipidemia, chronic gout of multiple sites, restrictive lung disease, pulmonary hypertension, gastric antral vascular ectasia, esophageal varices, history of portal vein thrombosis, cirrhosis of liver, hepatic encephalopathy, GERD, history of liver cell carcinoma, prostate cancer, radiation cystitis, acquired thrombocytopenia, chronic anemia [baseline Hgb ~8] and other problems listed below who presented to the ED via EMS after falling off of the couch this morning. Patient was made a trauma alert RELOCATION MANAGER. Unable to elicit any history from patient. Patient's son, Alex, reports that he has been acting confused since late last night. Notes that his bowel movements have "slowed down" over the last couple of days. Reports patient has been taking about half packet per day of his 10g lactulose since his last admission. Patient had a mechanical fall last night where he landed on his right hip and sustained a bruise to that region. Patient then "slipped off the couch" this morning. This was an unwitnessed event. No known loss of consciousness. Most recent admission at [facility] 07/05/24-07/10/24. Fall, Right Hip Contusion: All imaging performed in ED was negative for acute injuries/fractures. C-collar in place. Fall precautions. R hip contusion noted on exam. PRN low-dose IV Dilaudid. Topical Voltaren, heating pad. Need to clear C-spine when patient is more alert/communicative. PT/OT evals pending. Pain well-controlled PT and OT evaluation Hepatic Encephalopathy: Ammonia 153 on presentation. Unsure on patient's ability to swallow given AMS. NPO except sips/meds for now. Continue IVF w/ 1L NSS. Scheduled po lactulose to be used first. If patient unable to tolerate po intake, can use lactulose enema (communication order placed). Goal of 3-4 BMs/day. Repeat ammonia level in AM. Ammonia level 62 Mental status improving Continue lactulose and rifaximin 9/ MS mostly back to baseline Possible Metabolic encephalopathy in setting of UTI Acute UTI: UA appears infected. No leukocytosis, no overt urinary symptoms per patient's son. RVP pending for infectious w/u. Will treat w/ IV vancomycin + cefepime for now given h/o Corynebacterium urealyticum & Proteus mirabilis. Urine cx pending. 08/06 urine culture: Corynebacterium DC antibiotic Hepatic Cirrhosis 2/2 FOFANA, H/O Ascites H/O Esophageal Varices & Gastric Antral Vascular Ectasia Patient was previously undergoing paracentesis [id number]. Most recent therapeutic paracentesis performed on 06/15/24 - 1.2L was removed from a pocket of fluid identified in the LLQ. Did not f/u w/ GI after his most recent admission. Patient met / [facility]iative Medicine on 07/22/24. Discussion was had regarding starting hyperbaric oxygen chamber 3h/day for 12 weeks. Alk phos 156, total bili 3.3 on admission. Continue Xifaxan BID. Scheduled lactulose while inpatient 2/2 presenting hepatic encephalopathy. Hold RELOCATION MANAGER diuretics for now. DM Type II: Hold home health caregiver, basal/bolus regimen while inpatient. Hgb A1c 5.8% on 06/30/24. BCG checks ACHS. Glycemic pharmacy consulted. CKD Stage III: Cr 1.22 on admission, baseline Cr ~1.3-1.6 per chart review. Avoid nephrotoxic meds when able, monitor renal fx. Renal dosing PRN. H/O Prostate Cancer & Radiation Cystitis: Follows / [facility] Hematology/Oncology [Dr. Ramires]. Completed radiation therapy to the prostate on 04/05/21. Pt also follows [facility] [Dr. Frank Peraza]. History of radiation cystitis s/p cystourethroscopy with clot evacuation and fulguration. Can continue finasteride, oxybutynin and solifenacin. Hepatocellular Carcinoma Chronic Anemia & Thrombocytopenia: Underwent transarterial bland embolization at [facility] on 06/11/24. Hgb 9.6 on admission, baseline Hgb ~8. Plt count 76k on admission - stable. Has previously required frequent blood transfusions in the past. He was also treated multiple times w/ iron infusions. Continue RELOCATION MANAGER iron supplement. Other Chronic Medical Conditions: Gout, anxiety/depression --> Can continue RELOCATION MANAGER home meds for these specific conditions. PRN IM olanzapine for agitation ordered. DVT Prophylaxis: SCDs/TEDs for now. Code Status: FULL CODE - Per discussion with the patient's son, Alex, over the phone. PCP: Kristen Vences DO Disposition: Anticipate discharge home tomorrow Admission and Anticipated Discharge Date Admission Date: August 04, 2024 Subjective ff up for hep enceph, etc seen resting in bed, comfortable States he feels fine overall oriented x 3, answering all questions appropriately Denies abdominal pain, problems with urination, fevers or chills, nausea or vom iting Or new symptoms Review of Systems Review of Systems: all noted and negative except for above Physical Exam Physical Exam: General- oriented x 3, not in distress, speaks in sentences with no effort or accessory muscle use Eyes- anicteric Neck- no JVD Lungs- clear breath sounds bilaterally, no rales/wheezes Heart- normal rate, regular rhythm; no murmurs Abdomen- normal bowel sounds, nondistended, soft, nontender Extremities- no pretibial edema, no calf tenderness Neuro- alert, oriented x 3; no gross focal neurologic deficits Skin- warm & dry Results & Data Results & Data Vital Signs (Past 12 Hours) Vital Signs Temp Pulse Pulse Resp BP BP Pulse Ox 08/06/24 15:12 71 08/06/24 15:05 37.2 C 72 20 145/86 H 97 08/06/24 12:37 66 08/06/24 11:16 36.3 C L 65 18 149/71 H 98 08/06/24 07:14 36.6 C 65 18 118/47 L 96 O2 Del Method 08/06/24 15:12 08/06/24 15:05 Room Air 08/06/24 12:37 08/06/24 11:16 Room Air 08/06/24 07:14 Room Air all noted and reviewed including below (1) Fall Encounter type: initial encounter Qualified Code(s): W19.XXXA - Unspecified fall, initial encounter (3) UTI (urinary tract infection) Hematuria presence: with hematuria Urinary tract infection type: acute cystitis Qualified Code(s): N30.01 - Acute cystitis with hematuria
[2024-08-06] MEDS: LANTUS PER UNIT CHARGE SC SCH (18:24)
[2024-08-07 08:07] VITALS: RESP 16; O2SAT 95
--- NOTE | 2024-08-07 10:47 | Pharmacy Report ---
Pharmacy Glycemic Short Note 2 - Date of Service August 07, 2024 - Glycemic Short BSG Results (Last 24 hours): 08/06/24 08/06/24 08/06/24 12:16 17:18 20:04 POC Glucose 217 H 136 H 283 H 08/07/24 08:08 POC Glucose 183 H OUTPATIENT ANTIDIABETIC REGIMEN: * Lantus 25 units SC qPM HbA1c: 5.4% (08/05/24) ASSESSMENT: 08/07/24: * Patient received total 52 units of insulin: 18 units basal and 34 units bolus. BSGs were elevated above 200 mg/dl at lunch and bedtimes. * Fasting BSG today was also elevated at 183 mg/dl. Basal insulin increased to 22 units (20% increase) with dinner today. * Novolog parameters also tightened slightly. 08/06/24: * BSGs yesterday were elevated above goal but not above 200 mg/dl. Fasting BSG today was 181 mg/dl. * During previous recent admissions, patient used to receive 18 units of basal insulin with dinner. So, increased basal insulin dose today to 18 units. * Novolog parameters tightened this morning. Pre-lunch BSG trended up to 217 mg/dl but of note patient received his morning Novolog insulin dose a little late (that is after 10 am today). Hence the effect of this dose is not reflected in the pre-lunch BSG value. * Anticipate sugars to trend down by evening. 08/05/24: * Blood sugars reasonably controlled yesterday * Received 19 units of insulin (15 units of basal and 4 units of prandial/correctional bolus) * Diet advanced from NPO to T2DM at lunch today * Will continue with reduced basal dose today, possible increase in AM 08/04/24: * is a 74 year old male known to pharmacy glycemic service due to numerous past consultations/hospitalizations * Presented to ED this morning w/ altered mental status s/p fall * Multiple possible etiologies of AMS, including hepatic encephalopathy, UTI, s/p fall * Patient is NPO at this time, will give reduced basal dose today * Will use past inpatient glycemic data to guide initial Novolog parameters PLAN FOR INPATIENT GLYCEMIC CONTROL: * Basal insulin * Lantus 22 units SQ daily with dinner * Bolus insulin * NovoLog per scale ACHS or Q6hrs while NPO * Goal Range: Low 110 mg/dL - High 140 mg/dL * Correction Factor: 20 mg/dL/unit * Nutritional / Prandial insulin per carb ratio of 1 unit per 7 grams CHO consumed
[2024-08-07 12:25] VITALS: TEMP 98.1
--- NOTE | 2024-08-07 14:46 | Hospitalist Progress Note ---
Date of Service August 07, 2024 Assessment & Plan (1) Fall: (2) Hepatic encephalopathy: (3) UTI (urinary tract infection): Plan Per admitting service notes with addendum: Luis Hale is a 74y/o M with PMHx of DM type II [on basal insulin], CKD stage III, dyslipidemia, chronic gout of multiple sites, restrictive lung disease, pulmonary hypertension, gastric antral vascular ectasia, esophageal varices, history of portal vein thrombosis, cirrhosis of liver, hepatic encephalopathy, GERD, history of liver cell carcinoma, prostate cancer, radiation cystitis, acquired thrombocytopenia, chronic anemia [baseline Hgb ~8] and other problems listed below who presented to the ED via EMS after falling off of the couch this morning. Patient was made a trauma alert QUALITY MANAGER. Unable to elicit any history from patient. Patient's son, Alex, reports that he has been acting confused since late last night. Notes that his bowel movements have "slowed down" over the last couple of days. Reports patient has been taking about half packet per day of his 10g lactulose since his last admission. Patient had a mechanical fall last night where he landed on his right hip and sustained a bruise to that region. Patient then "slipped off the couch" this morning. This was an unwitnessed event. No known loss of consciousness. Most recent admission at [facility] 07/05/24-07/10/24. Fall, Right Hip Contusion: All imaging performed in ED was negative for acute injuries/fractures. C-collar in place. Fall precautions. R hip contusion noted on exam. PRN low-dose IV Dilaudid. Topical Voltaren, heating pad. Need to clear C-spine when patient is more alert/communicative. PT/OT evals pending. Pain well-controlled PT and OT evaluation Hepatic Encephalopathy: Ammonia 153 on presentation. Unsure on patient's ability to swallow given AMS. NPO except sips/meds for now. Continue IVF w/ 1L NSS. Scheduled po lactulose to be used first. If patient unable to tolerate po intake, can use lactulose enema (communication order placed). Goal of 3-4 BMs/day. Repeat ammonia level in AM. Ammonia level 62 Mental status improving Continue lactulose and rifaximin 9/5 MS mostly back to baseline Possible Metabolic encephalopathy in setting of UTI Acute UTI: UA appears infected. No leukocytosis, no overt urinary symptoms per patient's son. RVP pending for infectious w/u. Will treat w/ IV vancomycin + cefepime for now given h/o Corynebacterium urealyticum & Proteus mirabilis. Urine cx pending. 08/06 urine culture: Corynebacterium DC antibiotic Hepatic Cirrhosis 2/2 FOFANA, H/O Ascites H/O Esophageal Varices & Gastric Antral Vascular Ectasia Patient was previously undergoing paracentesis [id number]. Most recent therapeutic paracentesis performed on 06/15/24 - 1.2L was removed from a pocket of fluid identified in the LLQ. Did not f/u w/ GI after his most recent admission. Patient met / [facility] Palliative Medicine on 07/22/24. Discussion was had regarding starting hyperbaric oxygen chamber 3h/day for 12 weeks. Alk phos 156, total bili 3.3 on admission. Continue Xifaxan BID. Scheduled lactulose while inpatient 2/2 presenting hepatic encephalopathy. Hold QUALITY MANAGER diuretics for now. DM Type II: Hold vp home health, basal/bolus regimen while inpatient. Hgb A1c 5.8% on 06/30/24. BCG checks ACHS. Glycemic pharmacy consulted. CKD Stage III: Cr 1.22 on admission, baseline Cr ~1.3-1.6 per chart review. Avoid nephrotoxic meds when able, monitor renal fx. Renal dosing PRN. H/O Prostate Cancer & Radiation Cystitis: Follows / [facility] Hematology/Oncology [Dr. Ramires]. Completed radiation therapy to the prostate on 04/05/21. Pt also follows [facility] Urology [Dr. Frank Peraza]. History of radiation cystitis s/p cystourethroscopy with clot evacuation and fulguration. Can continue finasteride, oxybutynin and solifenacin. Hepatocellular Carcinoma Chronic Anemia & Thrombocytopenia: Underwent transarterial bland embolization at [facility] on 06/11/24. Hgb 9.6 on admission, baseline Hgb ~8. Plt count 76k on admission - stable. Has previously required frequent blood transfusions in the past. He was also treated multiple times w/ iron infusions. Continue QUALITY MANAGER iron supplement. Other Chronic Medical Conditions: Gout, anxiety/depression --> Can continue QUALITY MANAGER home meds for these specific conditions. PRN IM olanzapine for agitation ordered. DVT Prophylaxis: SCDs/TEDs for now. Code Status: FULL CODE - Per discussion with the patient's son, Alex, over the phone. PCP: Kristen Vences DO Disposition: Anticipate discharge home tomorrow Admission and Anticipated Discharge Date Admission Date: August 04, 2024 Results & Data Results & Data Vital Signs (Past 12 Hours) Vital Signs Temp Pulse Pulse Resp BP Pulse Ox O2 Del Method 08/07/24 12:24 36.7 C 79 16 150/70 H 95 Room Air 08/07/24 08:06 36.8 C 79 16 145/57 H 95 Room Air 08/07/24 07:30 77 08/07/24 02:53 36.9 C 76 18 155/54 H 96 Room Air (1) Fall Encounter type: initial encounter Qualified Code(s): W19.XXXA - Unspecified fall, initial encounter (3) UTI (urinary tract infection) Hematuria presence: with hematuria Urinary tract infection type: acute cystitis Qualified Code(s): N30.01 - Acute cystitis with hematuria
[2024-08-07 15:51] VITALS: BP 145/86; PULSE 79
[2024-08-07] MEDS ORDERED: LANTUS PER UNIT CHARGE SC SCH (16:30)
== END 2024-08-07 17:02 | disposition home health service (06) | DRG 441 ==
LOC: ED 05:19 → 2W 08:51 → SUATTDRO 08:51 → 2W 09:09
DX: I85.10 Secondary esophageal varices without bleeding; G93.41 Metabolic encephalopathy; K74.60 Unspecified cirrhosis of liver; N18.30 Chronic kidney disease, stage 3 unspecified; Z87.891 Personal history of nicotine dependence; K76.82 Hepatic encephalopathy; I27.20 Pulmonary hypertension, unspecified; K76.6 Portal hypertension; Z79.4 Long term (current) use of insulin; S70.01XA Contusion of right hip, initial encounter; D69.6 Thrombocytopenia, unspecified; M10.9 Gout, unspecified; K62.5 Hemorrhage of anus and rectum; J98.4 Other disorders of lung; W08.XXXA Fall from other furniture, initial encounter; N39.0 Urinary tract infection, site not specified; K75.81 Nonalcoholic steatohepatitis (NASH); C61 Malignant neoplasm of prostate; E86.0 Dehydration; Z92.3 Personal history of irradiation; E11.22 Type 2 diabetes mellitus with diabetic chronic kidney disease; K31.819 Angiodysplasia of stomach and duodenum without bleeding; Y92.018 Other place in single-family (private) house as the place of occurrence of the external cause; C22.0 Liver cell carcinoma; S09.90XA Unspecified injury of head, initial encounter; I12.9 Hypertensive chronic kidney disease with stage 1 through stage 4 chronic kidney disease, or unspecified chronic kidney disease

== ENCOUNTER 2024-12-04 11:20 | Inpatient (IN) ==
--- NOTE | 2024-12-04 11:39 | Emergency Department Note ---
Impression & Plan Acute confusion, Acute UTI, Anemia ED Provider Note NAME: LUIS TAPIA AGE: 74 SEX: M : 1950 ARRIVES VIA: Ambulance INFORMANT: Patient ED PROVIDER(S): Erich Pineda DO CHIEF COMPLAINT: Altered mental status HPI: Patient is a 74-year-old male with a past medical history of a closed head injury, pancytopenia, hepatic encephalopathy, sigmoid diverticulitis, stage III liver cancer, abdominal ascites who presents to the ER for confusion. Per EMS who provides additional history the patient lives at home with son. Patient has been more confused today. They do feel that has been constipated. He denies any headache or change in vision. No chest pain or shortness of breath. He denies any belly pain. No dysuria, urgency, or frequency. No other exacerbating or remitting factors. ADDITIONAL HISTORY OBTAINED: Per HPI Chronic Medical/Social Conditions Affecting Care: Per HPI PAST MEDICAL HISTORY:See Below PAST SURGICAL HISTORY:See Below FAMILY HISTORY:See Below SOCIAL HISTORY:See Below HOME MEDICATIONS:See Below ALLERGIES:See Below VITALS:See Below PHYSICAL EXAMINATION: GENERAL: Sitting up in bed, alert, well appearing, well nourished, no distress, non-toxic EYE EXAM: normal conjunctiva. PERRL and EOM's grossly intact. OROPHARYNX: no exudate, no erythema, lips, buccal mucosa, and tongue normal and mucous membranes are moist NECK: supple, no nuchal rigidity, no adenopathy, non-tender LUNGS: Clear to auscultation. Normal chest wall mechanics HEART: no murmurs, S1 normal and S2 normal ABDOMEN: abdomen soft, non-tender, normo-active bowel sounds, no masses, no rebound or guarding. UPPER EXTREMITIES: upper extremities are grossly normal. LOWER EXTREMITIES: Erythema and redness of the right lower extremity NEURO EXAM: Oriented to person not place or year, cranial nerves II-XII intact, normal speech, no weakness of arms, no weakness of legs. MEDICAL DECISION MAKING: Patient is a 74-year-old male who presents ER for the above-stated complaint. IV was established and blood work was obtained. Labs show mild leukopenia 3.6 thousand. Mild anemia at 8.4 fairly consistent with previous. Platelets were low at 73 consistent with previous. BMP with a glucose of at 180. Troponin was mildly elevated in the 20s. Lipase was normal. UA with leuks and whites favoring UTI. Patient was given IV antibiotics which included IV Rocephin. CT abdomen pelvis and head was fairly unremarkable. Patient was updated bedside discussed case with hospitalist admitted for further workup of his confusion which I favor secondary to the UTI. Consults/Care Managements Discussions: Per [facility] Triage Nursing notes reviewed. Limited review of prior medical records performed Vital Signs: reviewed and remarkable for no significant abnormalities Differential diagnosis: Differential diagnoses includes but is not limited to toxic, metabolic, infectious, traumatic, cardiac, neurologic, hematologic, psychiatric and inflammatory etiologies. ER treatment provided: See below Diagnostics interpreted by me include EKG and cardiac monitoring as listed below: -Cardiac Monitoring: An order was placed for continuous cardiac monitoring. The monitor shows a rate of 80 with sinus rhythm. -ECG: Sinus rhythm rate of 63 Normal axis No PVCs QTc 466 -Laboratory studies:Interpreted by me as stated above in MDM and shown below. Imaging studies: Xrays: As interpreted by me: Portable AP upright 1 view of the chest shows no focal infiltrate CTs show: CT of the head and abdomen pelvis shows no acute pathology Procedures:none Critical Care: None Past Med/Surg History Problem List (Updated 12/04/24 @ 17:31 by Erich Pineda DO) Acute UTI (Acute) Acute confusion (Acute) Dysphagia Hyperammonemia (Acute) Hematuria (Acute) Blood in stool Contusion of right hip (Acute) CHI (closed head injury) (Acute) Altered mental status (Acute) Radiation cystitis Fall (Acute) Diverticulitis (Acute) AMS (altered mental status) (Acute) Pancytopenia (Acute) Hyperammonemia (Acute) Hepatic encephalopathy Sigmoid diverticulitis Encephalopathy Elevated lactic acid level Epigastric abdominal pain Hypomagnesemia (Acute) Elevated liver enzymes (Acute) Acute hyperglycemia (Acute) Anemia (Acute) Precordial chest pain (Acute) Increased anion gap metabolic acidosis Abdominal pain, generalized Advanced care planning/counseling discussion Palliative care by specialist Acute on chronic blood loss anemia Elevated brain natriuretic peptide (BNP) level (Acute) Pancytopenia (Acute) Abdominal ascites (Acute) Abdominal pain (Acute) Hypocalcemia (Acute) Hyperglycemia (Acute) Elevated brain natriuretic peptide (BNP) level (Acute) Acute kidney injury superimposed on chronic kidney disease (Acute) Thrombocytopenia (Acute) Anemia requiring transfusions (Acute) Pancytopenia (Acute) Chest pain (Acute) LUCRETIA (acute kidney injury) Hematuria (Acute) Anemia (Acute) Acute urinary retention (Acute) DM type 2 (diabetes mellitus, type 2) Irradiation cystitis with hematuria UTI (urinary tract infection) (Acute) Anemia (Acute) 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 (Acute) Closed T12 spinal fracture (Acute) Prostate cancer (Acute) Hx radiation Insulin dependent type 2 diabetes mellitus Medical History CKD (chronic kidney disease) stage 3, GFR 30-59 ml/min Thrombocytopenia DM type 2 (diabetes mellitus, type 2) Hx of malignant neoplasm of prostate History of blood transfusion 11/2022 Hepatocellular carcinoma Spinal fracture of T12 vertebra History of recent hospitalization 06/2023 [facility] hepatic encephalopathy Liver spots Under surveillance, stable per patient Anxiety and depression 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 Anemia of chronic disease under surveillance History of panic attacks Gout No current issues GERD (gastroesophageal reflux disease) GAVE (gastric antral vascular ectasia) Hypertension Hx Esophageal varices EGD 05/22/23 ([facility]): Grade 1 varices in distal esophagus without high risk stigmata Upper GI bleed Hx Psoriasis Surgical History History of left cataract surgery History of right cataract surgery History of prostate biopsy malignant S/P TIPS (transjugular intrahepatic portosystemic shunt) History of esophagogastroduodenoscopy (EGD) Most recent 05/2023 [facility] History of colonoscopy with polypectomy History of tonsillectomy and adenoidectomy History of abdominal paracentesis Multiple, most recent 01/2023 Family History Father , "3/4 liver gone due to drinking" Colorectal cancer, Onset Age: 63 Mother Lung cancer Daughter Cancer cervical and thyroid cancers Ovarian cancer Other No family history of adverse response to anesthesia 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 Smoking Status: Unknown if ever smoked Second Hand Exposure: No; Hx Alcohol Use: No Hx Substance Use: No Preferred Language: Albanian Communication Ability: Effective Communication Ability Comment: AMS, unable to communicate Visual Impairment: No Limitations Hearing Ability: Normal Log Roller Required: No Beliefs That Will Affect Care: None marital status: Current Living Situation: Family Current Living Situation Comment: 1 level single family home 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 How many Children do You have: 6 How many Children do You have Comment: one , eldest daughter in her sleep from seizure disorder Feels Safe at Home: Yes Childhood Exposure to Second-Hand Smoke: Yes Diet Comment: "I watch my sugar, average fasting is 140 mg/dl" caffeine: Yes (cola, sugar free, decaf) during the past year weight has: remained stable Dental Care, Regularly: No Physical Activity Frequency: Does not Exercise Seatbelt Use: always Sunscreen Use: Yes Assistive Devices: Walker Allergies Allergies Allergy/AdvReac Type Severity Reaction Status Date / Time No Known Allergies Allergy Mild Verified 12/03/24 09:15 Home Meds Home Medications Medication Instructions Recorded Confirmed allopurinol 100 mg tablet 200 mg PO QAM 05/16/20 12/04/24 ferrous sulfate 325 mg (65 mg 650 mg PO QAM 05/17/23 12/04/24 iron) tablet (iron) geacncbofhsb-qak-hihsu acid-vit 1 tab PO DAILY 05/17/23 12/04/24 K-lycop 400 mcg-20 mcg-370 mcg tablet (Men's 50 Plus Multivitamin) duloxetine 30 mg capsule,delayed 30 mg PO QAM 02/02/24 12/04/24 release pantoprazole 40 mg tablet,delayed 40 mg PO AMPM 02/02/24 12/04/24 release rifaximin 550 mg tablet (Xifaxan) 550 mg PO AMHS 02/02/24 12/04/24 finasteride 5 mg tablet 5 mg PO QAM 03/20/24 12/04/24 insulin glargine 100 unit/mL (3 25 unit subcut QPM 05/20/24 12/04/24 mL) subcutaneous pen (Lantus Solostar U-100 Insulin) oxybutynin chloride 5 mg tablet 5 mg PO TID PRN Bladder Spasms 05/20/24 12/04/24 solifenacin 5 mg tablet 5 mg PO DAILY 05/20/24 12/04/24 triamcinolone acetonide 0.1 % 1 applic topical DAILY 05/20/24 12/04/24 topical cream zinc gluconate 50 mg tablet 50 mg PO DAILY ##0 05/20/24 12/04/24 magnesium chloride 64 mg 64 mg PO QAM 08/04/24 12/04/24 (magnesium chloride) tablet,delayed release (Mag 64) lactulose 10 gram oral packet 10 g PO BID 12/04/24 12/04/24 (Kristalose) Previous Rx's Medication Instructions Recorded furosemide 40 mg tablet 40 mg PO QAM #30 tabs 05/30/24 spironolactone 100 mg tablet 100 mg PO QAM #30 tabs 05/30/24 Results & Data (ED) Vital Signs Vital Signs - 24 hr 12/04/24 11:40 12/04/24 11:40 12/04/24 12:27 Temperature 36.7 C Temperature Source Oral Pulse Rate 76 68 Pulse Rate [Apical] Respiratory Rate 16 Respiratory Depth Blood Pressure 179/74 H Blood Pressure [Right Arm] Blood Pressure Mean 109 Blood Pressure Mean [Right Arm] Blood Pressure Position Lying Pulse Oximetry 98 Oxygen Delivery Method Room Air Room Air Sepsis Recent Fever Within 48 Hours No Sepsis New/Unexplained Change in Mental Status No Sepsis Action Taken by Nursing No Action Required 12/04/24 15:40 12/04/24 16:00 Temperature Temperature Source Pulse Rate Pulse Rate [Apical] 61 61 Respiratory Rate 18 18 Respiratory Depth Normal Blood Pressure Blood Pressure [Right Arm] 138/62 143/70 H Blood Pressure Mean Blood Pressure Mean [Right Arm] 87 94 Blood Pressure Position Pulse Oximetry 98 97 Oxygen Delivery Method Room Air Room Air Sepsis Recent Fever Within 48 Hours Sepsis New/Unexplained Change in Mental Status Sepsis Action Taken by Nursing Laboratory Data 12/04/24 11:30 12/04/24 16:29 Lab Results 12/04/24 12/04/24 12/04/24 Range/Units 11:30 11:40 12:05 WBC 3.62 L (4.8-10.8) K/ul RBC 2.47 L (4.70-6.10) M/uL Hgb 8.4 L (14.0-18.0) g/dl POC Hgb 7.5 L (14.0-18.0) g/dl Hct 25.2 L (42.0-52.0) % POC Hct 22 L (42-52) % MCV 102.0 H (80.0-100.0) fL MCH 34.0 (25.0-34.0) pg MCHC 33.3 (32.0-36.0) g/dL RDW Std Deviation 71.9 H (36.4-46.3) fL RDW Coeff of Violetta 19.6 H (11.5-14.5) % Plt Count 73 L (130-400) K/uL MPV 13.0 H (9.4-12.4) fL Immature Gran % (Auto) 1.4 % Neut % (Auto) 71.5 % Lymph % (Auto) 14.6 % Hopewell % (Auto) 7.2 % Eos % (Auto) 5.0 % Baso % (Auto) 0.3 % Neut # (Auto) 2.59 (1.40-6.50) K/uL Lymph # (Auto) 0.53 L (1.20-3.40) K/uL Hope[place] # (Auto) 0.26 (0.11-0.59) K/uL Eos # (Auto) 0.18 (0.00-0.50) K/uL Baso # (Auto) 0.01 (0.00-0.20) K/uL Immature Gran # (Auto) 0.05 (0.01-0.20) K/uL Absolute Nucleated RBC 0.02 (0.00-0.12) K/uL Nucleated RBC % (auto) 0.6 % PT 12.4 H (9.0-12.0) Seconds INR 1.2 H (0.9-1.1) POC Sodium 146 H (135-144) mmol/L Sodium 144 (136-145) mmol/L POC Potassium 4.8 (3.3-5.0) mmol/L Potassium 4.8 (3.5-5.1) mmol/L POC Chloride 112 (101-112) mmol/L Chloride 115 H (98-107) mmol/L Carbon Dioxide 24 (21-32) mmol/L POC Total CO2 20 L (24-31) mmol/L Anion Gap 5 (3-11) POC Anion Gap 19.0 (16-25) mmol/L POC BUN 35 H (7-18) mg/dl BUN 40 H (6-23) mg/dl Creatinine 1.45 H (0.6-1.4) mg/dl POC Creatinine 1.5 H (0.6-1.3) mg/dl Est Cr Clr Drug Dosing Not Reportable eGFR 50.57 BUN/Creatinine Ratio 27.6 H (10-20) Glucose 215 H (70-99(Fasting)) mg/dl POC Glucose (70-99) mg/dl POC Glucose (other) 199 H (70-99) mg/dl Calcium 8.6 (8.6-10.3) mg/dl POC Ioniz Calcium Meryl 1.13 (1.12-1.32) mmol/l Total Bilirubin 6.1 H (0.2-1.0) mg/dl AST 34 (13-39) U/L ALT 22 (7-52) U/L Alkaline Phosphatase 156 H (34-104) U/L Ammonia 58.0 (18-72) umol/L Troponin I High Sens 26.3 H (0-20) pg/ml Total Protein 5.9 L (6.0-8.3) gm/dl Albumin 3.0 L (3.4-5.0) gm/dl Globulin 2.9 (2.5-4.0) gm/dl Albumin/Globulin Ratio 1.0 (0.9-2) Lipase 33 (11-82) U/L Urine Color Urine Appearance (Clear) Urine pH (4.5-7.5) Ur Specific Allyn (1.000-1.030) Urine Protein (Negative) Urine Glucose (UA) (Negative) Urine Ketones (Negative) Urine Blood (Negative) Urine Nitrite (Negative) Urine Bilirubin (Negative) Urine Urobilinogen (Negative) Ur Leukocyte Esterase (Negative) Urine WBC (Auto) (0-5) /hpf Urine RBC (Auto) (0-2) /hpf U Hyaline Cast (Auto) (0-2) /lpf U Epithel Cells (Auto) (0-2) /hpf Urine Bacteria (Auto) (None Seen) Fluid Comment Peritoneal Color Peritoneal Appearance Peritoneal WBC (Auto) (0-300) /ul Peritoneal RBC (Auto) /uL Peritoneal Tot Protein gm/dl Peritoneal Albumin gm/dl 12/04/24 12/04/24 12/04/24 Range/Units 12:20 16:29 17:06 WBC (4.8-10.8) K/ul RBC (4.70-6.10) M/uL Hgb (14.0-18.0) g/dl POC Hgb (14.0-18.0) g/dl Hct (42.0-52.0) % POC Hct (42-52) % MCV (80.0-100.0) fL MCH (25.0-34.0) pg MCHC (32.0-36.0) g/dL RDW Std Deviation (36.4-46.3) fL RDW Coeff of Violetta (11.5-14.5) % Plt Count (130-400) K/uL MPV (9.4-12.4) fL Immature Gran % (Auto) % Neut % (Auto) % Lymph % (Auto) % Hope[place] % (Auto) % Eos % (Auto) % Baso % (Auto) % Neut # (Auto) (1.40-6.50) K/uL Lymph # (Auto) (1.20-3.40) K/uL Hopewell # (Auto) (0.11-0.59) K/uL Eos # (Auto) (0.00-0.50) K/uL Baso # (Auto) (0.00-0.20) K/uL Immature Gran # (Auto) (0.01-0.20) K/uL Absolute Nucleated RBC (0.00-0.12) K/uL Nucleated RBC % (auto) % PT (9.0-12.0) Seconds INR (0.9-1.1) POC Sodium (135-144) mmol/L Sodium 144 (136-145) mmol/L POC Potassium (3.3-5.0) mmol/L Potassium 4.7 (3.5-5.1) mmol/L POC Chloride (101-112) mmol/L Chloride 116 H (98-107) mmol/L Carbon Dioxide 24 (21-32) mmol/L POC Total CO2 (24-31) mmol/L Anion Gap 4 (3-11) POC Anion Gap (16-25) mmol/L POC BUN (7-18) mg/dl BUN 38 H (6-23) mg/dl Creatinine 1.37 (0.6-1.4) mg/dl POC Creatinine (0.6-1.3) mg/dl Est Cr Clr Drug Dosing Not Reportable eGFR 54.13 BUN/Creatinine Ratio 27.7 H (10-20) Glucose 182 H (70-99(Fasting)) mg/dl POC Glucose 175 H (70-99) mg/dl POC Glucose (other) (70-99) mg/dl Calcium 8.1 L (8.6-10.3) mg/dl POC Ioniz Calcium Meryl (1.12-1.32) mmol/l Total Bilirubin (0.2-1.0) mg/dl AST (13-39) U/L ALT (7-52) U/L Alkaline Phosphatase (34-104) U/L Ammonia (18-72) umol/L Troponin I High Sens (0-20) pg/ml Total Protein (6.0-8.3) gm/dl Albumin (3.4-5.0) gm/dl Globulin (2.5-4.0) gm/dl Albumin/Globulin Ratio (0.9-2) Lipase (11-82) U/L Urine Color Yellow Urine Appearance Clear (Clear) Urine pH 5.5 (4.5-7.5) Ur Specific Allyn 1.027 (1.000-1.030) Urine Protein Negative (Negative) Urine Glucose (UA) Negative (Negative) Urine Ketones Negative (Negative) Urine Blood Negative (Negative) Urine Nitrite Negative (Negative) Urine Bilirubin Negative (Negative) Urine Urobilinogen Negative (Negative) Ur Leukocyte Esterase 1+ H (Negative) Urine WBC (Auto) 6-10 H (0-5) /hpf Urine RBC (Auto) 0-2 (0-2) /hpf U Hyaline Cast (Auto) 0-2 (0-2) /lpf U Epithel Cells (Auto) 0-2 (0-2) /hpf Urine Bacteria (Auto) None Seen (None Seen) Fluid Comment Peritoneal Color Peritoneal Appearance Peritoneal WBC (Auto) (0-300) /ul Peritoneal RBC (Auto) /uL Peritoneal Tot Protein gm/dl Peritoneal Albumin gm/dl 12/04/24 Range/Units Unknown WBC (4.8-10.8) K/ul RBC (4.70-6.10) M/uL Hgb (14.0-18.0) g/dl POC Hgb (14.0-18.0) g/dl Hct (42.0-52.0) % POC Hct (42-52) % MCV (80.0-100.0) fL MCH (25.0-34.0) pg MCHC (32.0-36.0) g/dL RDW Std Deviation (36.4-46.3) fL RDW Coeff of Violetta (11.5-14.5) % Plt Count (130-400) K/uL MPV (9.4-12.4) fL Immature Gran % (Auto) % Neut % (Auto) % Lymph % (Auto) % [place] % (Auto) % Eos % (Auto) % Baso % (Auto) % Neut # (Auto) (1.40-6.50) K/uL Lymph # (Auto) (1.20-3.40) K/uL Hope[place] # (Auto) (0.11-0.59) K/uL Eos # (Auto) (0.00-0.50) K/uL Baso # (Auto) (0.00-0.20) K/uL Immature Gran # (Auto) (0.01-0.20) K/uL Absolute Nucleated RBC (0.00-0.12) K/uL Nucleated RBC % (auto) % PT (9.0-12.0) Seconds INR (0.9-1.1) POC Sodium (135-144) mmol/L Sodium (136-145) mmol/L POC Potassium (3.3-5.0) mmol/L Potassium (3.5-5.1) mmol/L POC Chloride (101-112) mmol/L Chloride (98-107) mmol/L Carbon Dioxide (21-32) mmol/L POC Total CO2 (24-31) mmol/L Anion Gap (3-11) POC Anion Gap (16-25) mmol/L POC BUN (7-18) mg/dl BUN (6-23) mg/dl Creatinine (0.6-1.4) mg/dl POC Creatinine (0.6-1.3) mg/dl Est Cr Clr Drug Dosing eGFR BUN/Creatinine Ratio (10-20) Glucose (70-99(Fasting)) mg/dl POC Glucose (70-99) mg/dl POC Glucose (other) (70-99) mg/dl Calcium (8.6-10.3) mg/dl POC Ioniz Calcium Meryl (1.12-1.32) mmol/l Total Bilirubin (0.2-1.0) mg/dl AST (13-39) U/L ALT (7-52) U/L Alkaline Phosphatase (34-104) U/L Ammonia (18-72) umol/L Troponin I High Sens (0-20) pg/ml Total Protein (6.0-8.3) gm/dl Albumin (3.4-5.0) gm/dl Globulin (2.5-4.0) gm/dl Albumin/Globulin Ratio (0.9-2) Lipase (11-82) U/L Urine Color Urine Appearance (Clear) Urine pH (4.5-7.5) Ur Specific Allyn (1.000-1.030) Urine Protein (Negative) Urine Glucose (UA) (Negative) Urine Ketones (Negative) Urine Blood (Negative) Urine Nitrite (Negative) Urine Bilirubin (Negative) Urine Urobilinogen (Negative) Ur Leukocyte Esterase (Negative) Urine WBC (Auto) (0-5) /hpf Urine RBC (Auto) (0-2) /hpf U Hyaline Cast (Auto) (0-2) /lpf U Epithel Cells (Auto) (0-2) /hpf Urine Bacteria (Auto) (None Seen) Fluid Comment Peritoneal Color Yellow Peritoneal Appearance Turbid Peritoneal WBC (Auto) 123 (0-300) /ul Peritoneal RBC (Auto) < 2000 /uL Peritoneal Tot Protein < 3.0 gm/dl Peritoneal Albumin < 1.5 gm/dl Administered Medications Ceftriaxone Sodium (Rocephin) 2,000 mg in 50 mls @ 100 mls/hr IV Q24H [facility] Stop: 12/14/24 13:29 Last Infusion: 12/04/24 15:41 Dose: Infused Documented By: Admin: 12/04/24 13:54 Dose: 100 mls/hr Documented By: OLIVIA Sodium Chloride (1/2 Nss) 1,000 mls @ 125 mls/hr IV .Q8H [facility] Stop: 12/04/24 21:29 Last Infusion: 12/04/24 15:45 Dose: 125 mls/hr Documented By: Infusion: 12/04/24 14:30 Dose: 0 mls/hr Documented By: Admin: 12/04/24 13:58 Dose: 125 mls/hr Documented By: OLIVIA Lactulose (Lactulose Syrup 20 Gm/30 Ml Udc) 20 gm PO QID JODI Stop: 01/03/25 16:59 Last Admin: 12/04/24 16:31 Dose: Not Given Documented By: NRB Discontinued Medications Sodium Chloride (Nss) 1,000 mls @ 999 mls/hr IV .Q1H1M ONE Stop: 12/04/24 12:34 Last Infusion: 12/04/24 13:54 Dose: Infused Documented By: Admin: 12/04/24 11:41 Dose: 999 mls/hr Documented By: AGUSTÍN Ioversol (Optiray 320 100ml) 94 ml IV ONCE ONE Stop: 12/04/24 11:45 Last Admin: 12/04/24 11:44 Dose: 94 ml Documented By: MATTHEW Lactulose (Lactulose Syrup 30 Gm/45 Ml Udp) 30 gm PO NOW STA Stop: 12/04/24 13:55 Last Admin: 12/04/24 16:10 Dose: 30 gm Documented By: NRB Imaging Data Radiologist's Impression: Abdomen/Pelvis CT 12/04/24 11:33 CT abd pelvis IV con only CLINICAL HISTORY: abd pain TECHNIQUE: Helical axial images of the abdomen and pelvis were obtained and displayed. Automated dose lowering techniques and/or adjustment according to patient size were utilized for this exam. This exam was performed with intravenous contrast. CT DOSE: 3157.32 mGy.cm COMPARISON: Comparison is made to CT abdomen pelvis 07/05/2024 FINDINGS: Lower chest: Bibasilar atelectasis versus scarring is seen. Liver: Nodular contour of the liver is seen compatible with cirrhosis. Partially visualized hepatic masses are similar to prior exam within the limits of this technique. A TIPS stent is noted. Gallbladder and biliary tree: Cholelithiasis is seen without evidence of cholecystitis. No intra- or extrahepatic biliary ductal dilation. Pancreas: Cystic lesion in the pancreatic head measures 2 cm. Spleen: Splenomegaly is seen on the spleen measures approximately 13 cm in craniocaudal dimension. Adrenals: Unremarkable. Kidneys and ureters: Subcentimeter hypodensities are too small to characterize. There is a 15 mm hypodensity in the anterior aspect of the left kidney. Bladder: Diffuse homogeneous wall thickening is seen. Reproductive organs: Prostatomegaly is seen. Bowel: Diverticulosis is seen without diverticulitis. The appendix is normal. A small hiatal hernia is seen. Lymph nodes Retroperitoneal: Subcentimeter lymph nodes are noted. Pelvic: Unremarkable. Mesenteric: Unremarkable. Peritoneum: Moderate ascites is seen. Vessels: Atherosclerotic calcifications are seen. The portal vein is prominent and patent. Sequelae of portal hypertension is seen with some splenic and gastric varices. Abdominal wall: Umbilical hernia containing ascites fluid is seen. Bones: Degenerative changes in the visualized spine. Compression deformities of T11-L2 are seen. IMPRESSION: 1. Cirrhosis is seen with moderate ascites which has increased from admission of 07/05/2024. 2. TIPS stent. 3. Pancreatic head cystic lesion. 4. Cholelithiasis without cholecystitis. 5. Chronic compression deformities in the thoracolumbar spine. 6. Diverticulosis without diverticulitis ACT 112: Negative or not required by law. Electronically signed by: Arik Flowers M.D. 12/04/2024 12:[address] 12/04/24 11:33 CT head/brain wo con CLINICAL HISTORY: ams Technique: Contiguous axial CT images of the head were acquired from the base of the skull to the vertex without intravenous contrast administration. Images were viewed in brain, subdural and bone windows. Automated dose lowering techniques and/or adjustment according to patient size were utilized for this exam. Comparison: Comparison is made to CT head 08/04/2024 Findings: Exam is limited by patient motion. Areas of decreased attenuation are present in the periventricular and subcortical white matter bilaterally consistent with small vessel ischemic disease. Generalized cerebral atrophy with commensurate enlargement of the ventricles, sulci, and cisterns is also present. There is no acute intracranial hemorrhage or evidence of acute territorial infarction. No shift of the midline structures, mass effect, or extra-axial abnormalities are shown. Atherosclerotic calcifications are present in the intracranial segments of the internal carotid arteries. Imaged portions of the paranasal sinuses and mastoid air cells are clear. The orbits appear normal. There are no acute fractures of the calvaria or scalp swelling. Impression: No acute intracranial hemorrhage, no evidence of acute territorial infarction or other acute intracranial disease process. ACT 112: Negative or not required by law. Electronically signed by: Arik Flowers M.D. 12/04/2024 12:16 PM Chest X-Ray 12/04/24 13:11 XR chest 1V portable CLINICAL HISTORY: ams TECHNIQUE: Single frontal radiograph of the chest was obtained. Comparison: Comparison is made to chest radiograph 08/04/2024 FINDINGS: No lines and tubes are seen. Cardiomegaly is noted. The aortic arch is calcified. Peribronchial thickening is seen. No evidence of pleural effusion or pneumothorax. IMPRESSION: Peribronchial thickening is seen compatible with infectious/inflammatory airways disease or viral pneumonia. No yannick consolidation is seen. ACT 112: Negative or not required by law. Electronically signed by: Arik Flowers M.D. 12/04/2024 1:34 PM Paracentesis Ultrasound 12/04/24 14:00 ULTRASOUND-GUIDED PARACENTESIS CLINICAL HISTORY: Ascites PROCEDURE: Procedure and risks were explained. Informed consent was obtained. A final timeout was completed. The abdomen was prepped and draped in sterile fashion. 1% lidocaine was utilized for skin anesthesia. Utilizing ultrasound guidance, a 5 Sami safety centesis catheter was advanced into the right lower quadrant pocket of ascites. Ultrasound images were obtained. A total of 3.2 L of ascites fluid was removed with 1 L sent to the lab for analysis. The catheter was removed and Band-Aid applied. The patient tolerated the procedure well. Vital signs will be monitored postprocedure. IMPRESSION: Ultrasound-guided paracentesis as above. Performed, dictated, and signed by Luis Ellis PA-C; to be co-signed by Dr. Elan Alexander. Electronically signed by: Elan Alexander M.D. 12/04/2024 4:01 PM Discharge Plan Visit Data Chief Complaint: Confusion ED Provider: Erich Pineda Discharge Problem: Acute confusion, Acute UTI, Anemia Patient Disposition: Admitted As Inpatient Discharge Instructions Interventions: ED Discharge Assessment Last Done: 12/04/24 16:32 Forms Stand Alone Forms: My [facility] Prescriptions Prescriptions: No Action allopurinol 100 mg Tablet 200 mg PO QAM ferrous sulfate [iron] 325 mg (65 mg iron) Tablet 650 mg PO QAM Men's 50 Plus Multivitamin 400-20-370 mcg Tablet 1 tab PO DAILY finasteride 5 mg tablet 5 mg PO QAM magnesium chloride [Mag 64] 64 mg tablet,delayed release (DR/EC) 64 mg PO QAM pantoprazole 40 mg tablet,delayed release (DR/EC) 40 mg PO AMPM duloxetine 30 mg capsule,delayed release(DR/EC) 30 mg PO QAM Xifaxan 550 mg tablet 550 mg PO AMHS oxybutynin chloride 5 mg tablet 5 mg PO TID PRN (Reason: Bladder Spasms) solifenacin 5 mg tablet 5 mg PO DAILY triamcinolone acetonide 0.1 % cream 1 applic TOPICAL DAILY zinc gluconate 50 mg Tablet 50 mg PO DAILY Qty: 0 insulin glargine [Lantus Solostar U-100 Insulin] 100 unit/mL (3 mL) insulin pen 25 unit SUBCUT QPM Rx Instructions: intermittent use spironolactone 100 mg Tablet 100 mg PO QAM Qty: 30 0RF Hold Instructions: Resume on 06/17/24. Hold for day of and day after paracentesis furosemide 40 mg Tablet 40 mg PO QAM Qty: 30 0RF Hold Instructions: Resume on 06/17/24. Hold day of and day after paracentesis lactulose [Kristalose] 10 gram packet 10 g PO BID Rx Instructions: TITRATE TO 3 OR MORE BOWEL MOVEMENTS PER DAY Referrals Referrals: Kristen Vences DO [Primary Care Provider] - Discharge Problem: Anemia Qualifiers: Anemia type: unspecified type Qualified Code(s): D64.9 - Anemia, unspecified
[2024-12-04] MEDS: SODIUM CHLORIDE 0.9% 1,000 ML IV ONE (11:41)
[2024-12-04] MEDS: OPTIRAY 320 100ml IV ONE (11:44)
[2024-12-04 11:52] LABS: iSTAT Creatinine 1.5 mg/dl (0.6-1.3); iSTAT Hemoglobin 7.5 g/dl (14.0-18.0); iSTAT Ionized Calcium 1.13 mmol/l (1.12-1.32); iSTAT Potassium 4.8 mmol/L (3.3-5.0)
[2024-12-04 11:58] LABS: Basophils # (auto) 0.01 K/uL (0.00-0.20); Basophils % (auto) 0.3 %; Eosinophils # (auto) 0.18 K/uL (0.00-0.50); Hematocrit (blood only) 25.2 % (42.0-52.0); Hemoglobin 8.4 g/dl (14.0-18.0); Immature Granulocytes # (auto) 0.05 K/uL (0.01-0.20); Immature Granulocytes % (auto) 1.4 %; Lymphocytes # (auto) 0.53 K/uL (1.20-3.40); Lymphocytes % (auto) 14.6 %; Mean Corpuscular Hgb Conc 33.3 g/dL (32.0-36.0); Monocytes # (auto) 0.26 K/uL (0.11-0.59); Monocytes % (auto) 7.2 %; Neutrophils # (auto) 2.59 K/uL (1.40-6.50); Neutrophils % (auto) 71.5 %; Nucleated RBC # (auto) 0.02 K/uL (0.00-0.12); Nucleated RBC % (auto) 0.6 %; Platelet Count 73 K/uL (130-400); RDW Coefficient of Variation 19.6 % (11.5-14.5); RDW Standard Deviation 71.9 fL (36.4-46.3); Red Blood Count 2.47 M/uL (4.70-6.10); White Blood Count 3.62 K/ul (4.8-10.8)
--- NOTE | 2024-12-04 12:17 | CT Scan Report ---
CT head/brain wo con CLINICAL HISTORY: ams Technique: Contiguous axial CT images of the head were acquired from the base of the skull to the jennifer ayana without intravenous contrast administration. Images were viewed in brain, [facility]ural [facility]. Automated dose lowering techniques and/or adjustment according to patient size were utilized for this exam. Comparison: Comparison is made to CT head 08/04/2024 Findings: Exam is limited by patient motion. Areas of decreased attenuation are present in the periventricular and subcortical white matter bilate rally consistent with small vessel ischemic disease. Generalized cerebral atrophy with commensurate e nlargement of the ventricles, sulci, and cisterns is also present. There is no acute intracranial hem orrhage or evidence of acute territorial infarction. No shift of the midline structures, mass effect, or extra-axial abnormalities are shown. Atherosclerotic calcifications are present in the intracran ial segments of the internal carotid arteries. Imaged portions of the paranasal sinuses and mastoid air cells are clear. The orbits appear normal. There are no acute fractures of the calvaria or scalp swelling. Impression: No acute intracranial hemorrhage, no evidence of acute territorial infarction or other acute intracra nial disease process. ACT 112: Negative or not required by law. Electronically signed by: Arik Flowers M.D. 12/04/2024 12:16 PM
[2024-12-04 12:26] LABS: Alanine Aminotransferase 22 U/L (7-52); Alkaline Phosphatase 156 U/L (34-104); Anion Gap 5 (3-11); Aspartate Aminotransferase 34 U/L (13-39); BUN Creatinine Ratio 27.6 (10-20); Bilirubin,Total 6.1 mg/dl (0.2-1.0); Blood Urea Nitrogen 40 mg/dl (6-23); Calcium 8.6 mg/dl (8.6-10.3); Carbon Dioxide 24 mmol/L (21-32); Chloride 115 mmol/L (98-107); Globulin 2.9 gm/dl (2.5-4.0); Glucose 215 mg/dl (70-99(Fasting)); Lipase 33 U/L (11-82); Potassium 4.8 mmol/L (3.5-5.1); Sodium 144 mmol/L (136-145); Total Protein 5.9 gm/dl (6.0-8.3)
[2024-12-04 12:32] LABS: Troponin I High Sensitivity 26.3 pg/ml (0-20)
[2024-12-04 12:43] LABS: Appearance Urine Clear (Clear); Bacteria Urine Automated None Seen (None Seen); Bilirubin Urine Negative (Negative); Blood Urine Negative (Negative); Cast Urine Automated 0-2 /lpf (0-2); Color Urine Yellow; Epithelial Cell Urine Auto 0-2 /hpf (0-2); Glucose Urine UA Negative (Negative); Ketones Urine Negative (Negative); Leukocyte Esterase Urine 1+ (Negative); Nitrite Urine Negative (Negative); Protein Urine Negative (Negative); RBC Urine Automated 0-2 /hpf (0-2); Specific Gravity Urine 1.027 (1.000-1.030); Urobilinogen Urine Negative (Negative); pH Urine 5.5 (4.5-7.5)
--- NOTE | 2024-12-04 12:48 | CT Scan Report ---
CT abd pelvis IV con only CLINICAL HISTORY: abd pain TECHNIQUE: Helical axial images of the abdomen and pelvis were obtained and displayed. Automated dose lowering techniques and/or adjustment according to patient size were utilized for this exam. This e xam was performed with intravenous contrast. CT DOSE: 3157.32 mGy.cm COMPARISON: Comparison is made to CT abdomen pelvis 07/05/2024 FINDINGS: Lower chest: Bibasilar atelectasis versus scarring is seen. Liver: Nodular contour of the liver is seen compatible with cirrhosis. Partially visualized hepatic m asses are similar to prior exam within the limits of this technique. A TIPS stent is noted. Gallbladder and biliary tree: Cholelithiasis is seen without evidence of cholecystitis. No intra- or extrahepatic biliary ductal dilation. Pancreas: Cystic lesion in the pancreatic head measures 2 cm. Spleen: Splenomegaly is seen on the spleen measures approximately 13 cm in craniocaudal dimension. Adrenals: Unremarkable. Kidneys and ureters: Subcentimeter hypodensities are too small to characterize. There is a 15 mm hypo density in the anterior aspect of the left kidney. Bladder: Diffuse homogeneous wall thickening is seen. Reproductive organs: Prostatomegaly is seen. Bowel: Diverticulosis is seen without diverticulitis. The appendix is normal. A small hiatal hernia i s seen. Lymph nodes Retroperitoneal: Subcentimeter lymph nodes are noted. Pelvic: Unremarkable. Mesenteric: Unremarkable. Peritoneum: Moderate ascites is seen. Vessels: Atherosclerotic calcifications are seen. The portal vein is prominent and patent. Sequelae o f portal hypertension is seen with some splenic and gastric varices. Abdominal wall: Umbilical hernia containing ascites fluid is seen. Bones: Degenerative changes in the visualized spine. Compression deformities of T11-L2 are seen. IMPRESSION: 1. Cirrhosis is seen with moderate ascites which has increased from admission of 07/05/2024. 2. TIPS stent. 3. Pancreatic head cystic lesion. 4. Cholelithiasis without cholecystitis. 5. Chronic compression deformities in the thoracolumbar spine. 6. Diverticulosis without diverticulitis ACT 112: Negative or not required by law. Electronically signed by: Arik Flowers M.D. 12/04/2024 12:46 PM
--- NOTE | 2024-12-04 13:34 | History & Physical Report ---
Date of Service December 04, 2024 Assessment & Plan (1) Hepatic encephalopathy: Plan Mr. Hale is a 74 year old male with a past medical history of DM type II, CKD stage III, dyslipidemia, chronic gout of multiple sites, restrictive lung disease, pulmonary hypertension, gastric antral vascular ectasia, esophageal varices, history of portal vein thrombosis, cirrhosis of liver, hepatic encephalopathy, GERD, history of liver cell carcinoma, prostate cancer, radiation cystitis, acquired thrombocytopenia, chronic anemia transfusion dependent who is admitted for acute metabolic encephalopathy #Acute metabolic encephalopathy #Hypernatremia Ammonia level 58, no nearly as elevated as prior presentations Suspect Hypernatremia/dehydration contributing Start 0.45 NS for correction as hyperglycemic (correct sodium from 146 to 149) Lactulose now, and resume for 2-3 bm daily continue home rifaximin Delirium preacutions UA and biofire negative NPO for now hold diuertics, resume as able #Decompensated Cirrhosis, ascites and AMS #Hepatocellular Carcinoma #H/O Esophageal Varices & Gastric Antral Vascular Ectasia Pt underwent transarterial bland embolization at [facility] on 06/11. Pt follows w/ [facility] [Dr. Ramires]. Baseline Hgb ~8 per chart review; Hgb 8.2 on admission. - MELD-Na: on admission - PSE: Start lactulose (titrated to 3-4BM / day), Rifaximin 550 BID - Ascites: Hold home Lasix:Jarrod 40:100 iso LUCRETIA and hypernatremia -Consult IR for paracentesis (last para 12/01, however, protuberant and uncomfortable on exam - start Rocephin f/u cell count - EV: No evidence of GIB presently, close monitoring - on protonix for PPx at home, will continue - EV: s/p Protonix 80 x1 - Daily CMP + INR to calculate MELD; low Na diet - GI consult -US TIPS #Transfusion dependent anemia #Chronic pancyotpenia avoid chemoprophylaxsis, start SCDs Trend CBC last transfusion 12/03/2024 no reported bleed at this time #Episodic Hematuria #Prostate Cancer & Radiation Cystitis Completed radiation therapy to the prostate on 04/05/21; Pt follows w/ [facility] [Dr. Ramires]. Pt also follows w/ [facility] [Dr. Frank Peraza]. History of radiation cystitis s/p cystourethroscopy with clot evacuation and fulguration. Can continue [employer] finasteride, oxybutynin and solifenacin. #Diabetes Mellitus Type II [Insulin-Dependent] hold home insulin glargine 25 U (reports intermittent use) SSI and BSG q6 Continue to monitor #LUCRETIA on CKD Stage III Creatinine 1.45 Hold home lasix and aldactone # Gout continue [employer] A[employer]ST allopurinol. #Anxiety & Depression: Can continue [employer] A[employer]ST duloxetine Diet: NPO for now DVT Prophylaxis: SCDs in setting of anemia requiring transfusion Admission and Anticipated Discharge Date Admission Date: Time spent evaluating patient, direct bedside care, chart review, placing orders, interpretation of diagnostic studies, discussion with consultants, patient, and family members, as well as other required patient management activities is 75 minutes. History of Present Illness Chief Complaint: [facility] Primary Care Provider: Kristen Vences DO Mr. Hlae is a 74 year old male with a past medical history of DM type II, CKD stage III, dyslipidemia, chronic gout of multiple sites, restrictive lung disease, pulmonary hypertension, gastric antral vascular ectasia, esophageal varices, history of portal vein thrombosis, cirrhosis of liver, hepatic encephalopathy, GERD, history of liver cell carcinoma, prostate cancer, radiation cystitis, acquired thrombocytopenia, chronic anemia transfusion dependent who was brought to ED by son 2/2 confusion. Patient s/p paracentesis on 12/01 with 7 l removed and blood transfusion on 12/03. Son reports patient more weak and confused, which is always a sign that "his ammonia is off" per the son. Patient unable to provide accurate history--stating the year is "1957" and he is at the hospital because he "vomited 5 minutes ago." Patient denies any concerns at bedside, though unreliable historian at this time. Son reports issues with chronic nausea improved with reglan, as well as newer issues with swallowing most of his pills in last year. In the ED, vitals were notable for BP of 170s, HR of 60s, and O2 sat of high 90s on ra Imaging revealed moderate ascites increased in volume from last scan labs with stable anemia, hypernatremia corrected to 149 iso hyperglycemia, lucretia 1.45 ED interventions: NS. 1L Patient to be admitted to pcu for further evaluation and management of acute encephalopathy iso decomp cirrhosis Allergies Allergy/AdvReac Type Severity Reaction Status Date / Time No Known Allergies Allergy Mild Verified 12/03/24 09:15 Home Medications Medication Instructions Recorded Confirmed Type allopurinol 100 mg tablet 200 mg PO QAM 05/16/20 12/04/24 History ferrous sulfate 325 mg (65 mg 650 mg PO QAM 05/17/23 12/04/24 History iron) tablet (iron) ffgyucenxose-kin-bqiup acid-vit 1 tab PO DAILY 05/17/23 12/03/24 History K-lycop 400 mcg-20 mcg-370 mcg tablet (Men's 50 Plus Multivitamin) duloxetine 30 mg capsule,delayed 30 mg PO QAM 02/02/24 12/04/24 History release pantoprazole 40 mg tablet,delayed 40 mg PO AMPM 02/02/24 12/04/24 History release rifaximin 550 mg tablet (Xifaxan) 550 mg PO AMHS 02/02/24 12/04/24 History finasteride 5 mg tablet 5 mg PO QAM 03/20/24 12/04/24 History insulin glargine 100 unit/mL (3 25 unit subcut QPM 05/20/24 12/04/24 History mL) subcutaneous pen (Lantus Solostar U-100 Insulin) oxybutynin chloride 5 mg tablet 5 mg PO TID PRN Bladder Spasms 05/20/24 12/04/24 History solifenacin 5 mg tablet 5 mg PO DAILY 05/20/24 12/04/24 History triamcinolone acetonide 0.1 % 1 applic topical DAILY 05/20/24 12/04/24 History topical cream zinc gluconate 50 mg tablet 50 mg PO DAILY ##0 05/20/24 12/04/24 History furosemide 40 mg tablet 40 mg PO QAM #30 tabs 05/30/24 12/04/24 Rx spironolactone 100 mg tablet 100 mg PO QAM #30 tabs 05/30/24 12/04/24 Rx magnesium chloride 64 mg 64 mg PO QAM 08/04/24 12/04/24 History (magnesium chloride) tablet,delayed release (Mag 64) lactulose 10 gram oral packet 12/04/24 History (Kristalose) Past Med/Surg History Problem List Dysphagia Hyperammonemia (Acute) Hematuria (Acute) Blood in stool Contusion of right hip (Acute) CHI (closed head injury) (Acute) Altered mental status (Acute) Radiation cystitis Fall (Acute) Diverticulitis (Acute) AMS (altered mental status) (Acute) Pancytopenia (Acute) Hyperammonemia (Acute) Hepatic encephalopathy Sigmoid diverticulitis Encephalopathy Elevated lactic acid level Epigastric abdominal pain Hypomagnesemia (Acute) Elevated liver enzymes (Acute) Acute hyperglycemia (Acute) Anemia (Acute) Precordial chest pain (Acute) Increased anion gap metabolic acidosis Abdominal pain, generalized Advanced care planning/counseling discussion Palliative care by specialist Acute on chronic blood loss anemia Elevated brain natriuretic peptide (BNP) level (Acute) Pancytopenia (Acute) Abdominal ascites (Acute) Abdominal pain (Acute) Hypocalcemia (Acute) Hyperglycemia (Acute) Elevated brain natriuretic peptide (BNP) level (Acute) Acute kidney injury superimposed on chronic kidney disease (Acute) Thrombocytopenia (Acute) Anemia requiring transfusions (Acute) Pancytopenia (Acute) Chest pain (Acute) LUCRETIA (acute kidney injury) Hematuria (Acute) Anemia (Acute) Acute urinary retention (Acute) DM type 2 (diabetes mellitus, type 2) Irradiation cystitis with hematuria UTI (urinary tract infection) (Acute) Anemia (Acute) 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 (Acute) Closed T12 spinal fracture (Acute) Prostate cancer (Acute) Hx radiation Insulin dependent type 2 diabetes mellitus Medical History CKD (chronic kidney disease) stage 3, GFR 30-59 ml/min Thrombocytopenia DM type 2 (diabetes mellitus, type 2) Hx of malignant neoplasm of prostate History of blood transfusion 11/2022 Hepatocellular carcinoma Spinal fracture of T12 vertebra History of recent hospitalization 06/2023 [facility] hepatic encephalopathy Liver spots Under surveillance, stable per patient Anxiety and depression 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 Anemia of chronic disease under surveillance History of panic attacks Gout No current issues GERD (gastroesophageal reflux disease) GAVE (gastric antral vascular ectasia) Hypertension Hx Esophageal varices EGD 05/22/23 ([facility]): Grade 1 varices in distal esophagus without high risk stigmata Upper GI bleed Hx Psoriasis Surgical History History of left cataract surgery History of right cataract surgery History of prostate biopsy malignant S/P TIPS (transjugular intrahepatic portosystemic shunt) History of esophagogastroduodenoscopy (EGD) Most recent 05/2023 [facility] History of colonoscopy with polypectomy History of tonsillectomy and adenoidectomy History of abdominal paracentesis Multiple, most recent 01/2023 Family History Father , "3/4 liver gone due to drinking" Colorectal cancer, Onset Age: 63 Mother Lung cancer Daughter Cancer cervical and thyroid cancers Ovarian cancer Other No family history of adverse response to anesthesia 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 Smoking Status: Unknown if ever smoked Second Hand Exposure: No; Hx Alcohol Use: No Hx Substance Use: No Preferred Language: Singaporean Communication Ability: Effective Communication Ability Comment: AMS, unable to communicate Visual Impairment: No Limitations Hearing Ability: Normal Coil Tier Required: No Beliefs That Will Affect Care: None marital status: Current Living Situation: Family Current Living Situation Comment: 1 level single family home 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 How many Children do You have: 6 How many Children do You have Comment: one , eldest daughter in her sleep from seizure disorder Feels Safe at Home: Yes Childhood Exposure to Second-Hand Smoke: Yes Diet Comment: "I watch my sugar, average fasting is 140 mg/dl" caffeine: Yes (cola, sugar free, decaf) during the past year weight has: remained stable Dental Care, Regularly: No Physical Activity Frequency: Does not Exercise Seatbelt Use: always Sunscreen Use: Yes Assistive Devices: Walker Review of Systems Review of Systems: Constitutional: (-) fever/chills, (-) recent loss of weight, (-) appetite changes, (-) night sweats. Head: (-) headache, (-) dizziness. Eye: (-) blurring of vision, (-) double vision, (-) redness. Ear: (-) hearing loss, (-) discharge, (-) vertigo Nose: (-) discharge, (-) bleeding, (-) congestion, (-) post nasal drip. Throat: (-) sore throat, (-) hoarseness of voice, (-) odynophagia. Cardiovascular: (-) chest pain, (-) palpitations, (-) syncope, (-) orthopnea, (- ) PND, (-) leg swelling. Respiratory: (-) shortness of breath, (-) cough, (-) wheezing, (-) hemoptysis. Neuro: (-) weakness in extremities, (-) numbness, (-) tingling, (-) tremor. Gastrointestinal: (-) belly pain, (-) belly distension, (-) nausea, (-) vomiting, (-) diarrhea, (-) constipation, (-) na, (-) hematemesis, (-) hematochezia, (-) bowel incontinence Genitourinary: (-) hematuria, (-) dysuria, (-) polyuria, (-) hesitancy, (-) frequency, (-) urinary incontinence. Musculoskeletal: (-) myalgia, (-) arthralgia. Skin: (-) rashes. Endocrine: (-) heat/cold intolerance. Psychiatry: (-) depression, (-) hallucination. Physical Exam Physical Exam: GENERAL APPEARANCE: AxOx1 chronically ill HEENT: NC, AT. MMM. EOMI, clear conjunctiva, NECK: Supple without lymphadenopathy. No stiffness or restricted ROM. HEART: Normal rate and regular rhythm, normal S1/S1, no m/r/g LUNGS: CTAB, moving air well. No crackles or wheezes are heard. ABDOMEN: protuberant, fluid shift EXTREMITIES: Without cyanosis, clubbing or edema. NEUROLOGICAL: Grossly nonfocal. moving all 4 extremities. CN not formally tested but appear grossly intact. Skin: petechiae BLE (chronic per son-. Results & Data Results & Data Vital Signs (Past 12 Hours) Vital Signs Temp Pulse Resp BP Pulse Ox O2 Del Method 12/04/24 12:27 68 12/04/24 11:40 Room Air 12/04/24 11:40 36.7 C 76 16 179/74 H 98 Room Air Laboratory Results Short CBC 12/04/24 Range/Units 11:30 WBC 3.62 L (4.8-10.8) K/ul Hgb 8.4 L (14.0-18.0) g/dl Hct 25.2 L (42.0-52.0) % Plt Count 73 L (130-400) K/uL BMP 12/04/24 11:30 Sodium 144 Potassium 4.8 Chloride 115 H Carbon Dioxide 24 BUN 40 H Creatinine 1.45 H Glucose 215 H Calcium 8.6 Liver Function 12/04/24 Range/Units 11:30 Total Bilirubin 6.1 H (0.2-1.0) mg/dl AST 34 (13-39) U/L ALT 22 (7-52) U/L Alkaline Phosphatase 156 H (34-104) U/L Albumin 3.0 L (3.4-5.0) gm/dl Urine 12/04/24 Range/Units 12:20 Urine Color Yellow Urine Appearance Clear (Clear) Urine pH 5.5 (4.5-7.5) Ur Specific [place] 1.027 (1.000-1.030) Urine Protein Negative (Negative) Urine Glucose (UA) Negative (Negative) Medications Administered Home Medications Medication Instructions Recorded Confirmed Last Taken allopurinol 100 mg tablet 200 mg PO QAM 05/16/20 12/04/24 05/14/24 ferrous sulfate 325 mg (65 mg 650 mg PO QAM 05/17/23 12/04/24 05/15/24 iron) tablet (iron) cwazpqwcrxqr-zax-dlvhm acid-vit 1 tab PO DAILY 05/17/23 12/03/24 05/15/24 K-lycop 400 mcg-20 mcg-370 mcg tablet (Men's 50 Plus Multivitamin) duloxetine 30 mg capsule,delayed 30 mg PO QAM 02/02/24 12/04/24 05/15/24 release pantoprazole 40 mg tablet,delayed 40 mg PO AMPM 02/02/24 12/04/24 05/15/24 release rifaximin 550 mg tablet (Xifaxan) 550 mg PO AMHS 02/02/24 12/04/24 05/15/24 finasteride 5 mg tablet 5 mg PO QAM 03/20/24 12/04/24 05/15/24 insulin glargine 100 unit/mL (3 25 unit subcut QPM 05/20/24 12/04/24 Unknown mL) subcutaneous pen (Lantus Solostar U-100 Insulin) oxybutynin chloride 5 mg tablet 5 mg PO TID PRN Bladder Spasms 05/20/24 12/04/24 Unknown solifenacin 5 mg tablet 5 mg PO DAILY 05/20/24 12/04/24 Unknown triamcinolone acetonide 0.1 % 1 applic topical DAILY 05/20/24 12/04/24 Unknown topical cream zinc gluconate 50 mg tablet 50 mg PO DAILY ##0 05/20/24 12/04/24 Unknown furosemide 40 mg tablet 40 mg PO QAM #30 tabs 05/30/24 12/04/24 Unknown spironolactone 100 mg tablet 100 mg PO QAM #30 tabs 05/30/24 12/04/24 Unknown magnesium chloride 64 mg 64 mg PO QAM 08/04/24 12/04/24 Unknown (magnesium chloride) tablet,delayed release (Mag 64) lactulose 10 gram oral packet 12/04/24 Unknown (Kristalose) Active Medications Generic Name Dose Route Start Last Admin Trade Name Freq PRN Reason Stop Dose Admin Ceftriaxone Sodium 2,000 mg in 50 mls @ 100 mls/hr 12/04/24 13:30 12/04/24 13:54 Rocephin IV 12/14/24 13:29 100 mls/hr Q24H JODI Administration Sodium Chloride 1,000 mls @ 125 mls/hr 12/04/24 13:30 12/04/24 13:58 1/2 Nss IV 12/04/24 21:29 125 mls/hr .Q8H JODI Administration
--- NOTE | 2024-12-04 13:36 | XRay Report ---
XR chest 1V portable CLINICAL HISTORY: ams TECHNIQUE: Single frontal radiograph of the chest was obtained. Comparison: Comparison is made to chest radiograph 08/04/2024 FINDINGS: No lines and tubes are seen. Cardiomegaly is noted. The aortic arch is calcified. Peribronchial thick ening is seen. No evidence of pleural effusion or pneumothorax. IMPRESSION: Peribronchial thickening is seen compatible with infectious/inflammatory airways disease or viral pne umonia. No yannick consolidation is seen. ACT 112: Negative or not required by law. Electronically signed by: Arik Flowers M.D. 12/04/2024 1:34 PM
[2024-12-04] MEDS: cefTRIAXone SODIUM 2,000 MG/50 ML BAG IV SCH (13:54)
[2024-12-04] MEDS: SODIUM CHLORIDE 0.45 % 1,000 ML IV SCH (13:58)
--- NOTE | 2024-12-04 15:21 | Electrocardiogram Report ---
Test Reason : Blood Pressure : */* mmHG Vent. Rate : 63 BPM Atrial Rate : 63 BPM P-R Int : 184 ms QRS Dur : 88 ms QT Int : 456 ms P-R-T Axes : 56 -14 13 degrees QTcB Int : 466 ms Normal sinus rhythm Low voltage QRS Nonspecific T wave abnormality Prolonged QT Abnormal ECG When compared with ECG of 04-Aug-2024 05:33, Criteria for Anterior infarct are no longer Present Confirmed by Salvador Scanlon ([id number]) on 12/04/2024 3:21:25 PM Referred By: Confirmed By: Salvador Scanlon
--- NOTE | 2024-12-04 15:46 | Ultrasound Report ---
ULTRASOUND-GUIDED PARACENTESIS CLINICAL HISTORY: Ascites PROCEDURE: Procedure and risks were explained. Informed consent was obtained. A final timeout was com pleted. The abdomen was prepped and draped in sterile fashion. 1% lidocaine was utilized for skin ane sthesia. Utilizing ultrasound guidance, a 5 Armenian safety centesis catheter was advanced into the right lower quadrant pocket of ascites. Ultrasound images were obtained. A total of 3.2 L of ascites fluid was re moved with 1 L sent to the lab for analysis. The catheter was removed and Band-Aid applied. The patie nt tolerated the procedure well. Vital signs will be monitored postprocedure. IMPRESSION: Ultrasound-guided paracentesis as above. Performed, dictated, and signed by Luis Ellis PA-C; to be co-signed by Dr. Elan Alexander. Electronically signed by: Elan Alexander M.D. 12/04/2024 4:01 PM
[2024-12-04 15:51] LABS: INR 1.2 (0.9-1.1); Prothrombin Time 12.4 Seconds (9.0-12.0)
[2024-12-04] MEDS: LACTULOSE SYRUP 30 GM/45 ML UDP PO STA (16:10)
[2024-12-04 16:28] LABS: Appearance Peritoneal Fluid Turbid; Color Peritoneal Fluid Yellow; RBC Peritoneal Fluid Auto < 2000 /uL; WBC Peritoneal Fluid Auto 123 /ul (0-300)
[2024-12-04] MEDS: LACTULOSE SYRUP 20 GM/30 ML UDC PO SCH (16:31)
[2024-12-04 16:43] LABS: Albumin Peritoneal Fluid < 1.5 gm/dl; Total Protein Peritoneal Fluid < 3.0 gm/dl
--- OUTSIDE RECORDS SUMMARY | 2024-12-04 16:49 | External Medical Summary | Summary of Care ---
Author Name Unknown Organization [facility] Address [address] [place] [address] Phone [phone] Care Team Providers Care Passenger Barge Master Name Role Phone Vangie Kristenlang Rubin DO Primary Care Provider [phone] Reason for Visit * Reason Onset Date Comments Advice 11/30/2024 Keyla Encounter Details Date Type Department Care Team (Late st Contact Info) Description 11/30/2024 Telephone Hematology/Oncology, [facility] [address] [place] [address] Keyla, Jennifer Aragon MD [address] [id number] Advice (Keyla ) Allergies No known active allergiesdocumented as of this encounter (statuses as of 12/01/2024) Medications OneTouch Verio In Vitro Strip (Glucose Blood)Indications :Type 2 diabetes mellitus with hemoglobin A1c goal of less than 7.0% ([facility]) Use to test blood sugars 3 times a day 300 Strip 5 Active Additional Information Patient not taking.Reported on 11/26/2024 BD Pen Needle Elizabeth 2nd Gen 32G X 4 MM USE DIRECTED TO ADMINISTER INSULIN AT DINNER DAILY Active Multivitamin Men 50+ Oral Tablet Take by mouth. Active High Potency Iron 65 MG Oral Tablet Take by mouth. Active Zinc 50 MG Oral Capsule Take 1 Capsule by mouth in the morning. Active N-Acetyl Cysteine 600 MG Oral Tablet (Acetylcysteine (Nutrient)) Take by mouth. Takes 1 daily Active FreeStyle Wang 2 Sensor Use as directed. Every 14 days 2 Each 5 023 Active Probiotic (Lactobacillus) Oral Capsule 1 Capsule. 023 Active oxygen IN GAS Use 2 L/min(Oxygen) as directed at bedtime. Active Albumin Human 25 % Intravenous SolutionIndicatio ns:Cirrhosis of liver with ascites, unspecified hepatic cirrhosis type (HCC) 25Gm before and after paracentesis 100 mL 023 Active Metoclopramide HCl 5 MG Oral Tablet (Reglan) One tab as often as 3 times a day, if needed for nausea 90 Tablet 3 023 Active rifAXIMin 550 MG Oral Tablet (Xifaxan)Indicati ons:Cirrhosis of liver (HCC),Hepatic encephalopathy (HCC) Take 1 Tablet by mouth in the morning and 1 Tablet before bedtime. 180 Tablet 5 023 Active Albumin Human 25 % Intravenous SolutionIndicatio [...] to 60 minute each unit 50 mL 024 Active Triamcinolone Acetonide 0.1 % External Cream (Aristocort) Apply to psoriatic lesions on arms, legs, hands, feet, chest, back, abdomen twice a day as needed for 2-3 weeks 453.6 g 024 Active Albumin Human 25 % Intravenous SolutionIndicatio ns:Cirrhosis of liver (HCC) If paracentesis yields a [...] 60 minute each unit 300 mL 100 Active Potassium Chloride Stephanie ER 20 MEQ Oral Tablet Extended Release 1 Tablet in the morning. Active Finasteride 5 MG Oral Tablet (Proscar) TAKE 1 TABLET BY MOUTH IN THE MORNING 90 Tablet 1 Active Spironolactone 100 MG Oral Tablet (Aldactone) Take 1 Tablet by mouth in the morning. 90 Tablet 3 Active Cranberry 4200 MG Oral Capsule Take by mouth. 2 pills daily Active Solifenacin Succinate 5 MG Oral Tablet (VESIcare) Take 1 Tablet by mouth in the morning. 30 Tablet 6 Active Pantoprazole Sodium 40 MG Oral Tablet Delayed Release (Protonix)Indicat ions:GAVE (gastric antral vascular ectasia) TAKE 1 TABLET BY MOUTH IN THE MORNING AND 1 IN THE EVENING 60 Tablet 5 Active Additional Information Patient taking differently: Once daily, Reported on 11/26/2024 Furosemide 20 MG Oral Tablet (Lasix) 2 tabs by mouth once daily 60 Tablet 5 024 Active Lactulose 10 GM Oral Packet (Kristalose)Indic ations:Cirrhosis of liver without ascites, unspecified hepatic cirrhosis type (HCC) Take 1 Packet by mouth in the morning and 1 Packet before bedtime. Take one packet by mouth twice daily - titrate to 3 or more BMs/day.. 60 Each 12 Active DULoxetine HCl 30 MG Oral Capsule Delayed Release Particles (Cymbalta) Take 1 capsule by mouth in the morning 90 Capsule 2 Active Allopurinol 100 MG Oral Tablet (Zyloprim)Indicat ions:Gout of big toe TAKE 2 TABLETS BY MOUTH IN THE MORNING 180 Tablet 2 Active Lantus 100 UNIT/ML Subcutaneous Solution Inject 25 Units under the skin every evening. With dinner 3 Each 5 023 2023 Discontinued documented as of this encounter (statuses as of 12/01/2024) Active Problems Problem Noted Date Diagnosed Date [...] Acquired thrombocytopenia 09/05/2017 Acquired renal cyst 09/28/2014 Overview (09/28/2014): Bilateral hemorrhagic cysts, with the right being larger than the left. 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) 07/28/2014 GAVE (gastric antral vascular ectasia) 4 Type 2 diabetes mellitus wit h hemoglobin A1c goal of less than 7.0% 07/14/2012 Overview (03/27/2016): ICD-10 update of inactive term Dyslipidemia, goal LDL below 100 07/14/2012 Esophageal reflux 01/09/2007 Pancreas cyst 01/22/2006 Overview (09/30/2019): Corrected the coding Allergic rhinitis documented as of this encounter (statuses as of 12/01/2024) Resolved Problems Problem Noted Date Diagnosed Date [...] 02/04/2007 07/08/2018 ADVANCE DIRECTIVE INFORMATION 01/21/2006 05/01/2017 Overview (01/21/2006): No, Advance Directive brochure given to patient at prior appointment. ABDOMINAL PAIN, RECTAL 10/09/200201/09 Constipation 10/09/2002 09/04/2017 Overview (02/23/2016): ICD-10 update of inactive term Other psoriasis 10/09/2002 07/08/2018 Dyslipidemia, goal to be determined 10/09/2002 07/14/2012 documented as of this encounter (statuses as of 12/01/2024) Immunizations Name Administration Dates Next Due COVID-19 mRNA, LNP-s, No Pre serve, 2-Dose Series (Fanbouts) 03/08/2021,02/15/2021 COVID-19, MRNA-LNP, PF, 50 M CG/0.5 mL, 12 YRS AND ABOVE, IM (MODERNA-Spikevax) 10/18/2023 HepA Inact/HepB Recomb>=18yrs old 12/04/2019,04/2019,05/20/2019 11/19/2019 PPD 06/18/2017, 3,01/09/2012,06/2011 Pneumococcal Conjugate Vacc, 13 Valent (Prevnar) 05/01/2017 Pneumococcal Polysaccharide PPV23 (Pneumovax) 09/14/2022,08/28/2022,10/25/2015,07/02 Season Influenza, Quad, PF, Adjuvanted, 65+ Yrs, IM (FLUAD) 10/07/2020(Deferred: Patient Refused - pt says he already had his shot last month at [facility] and Mckinley Cobian made aware) Seasonal Influenza Vac., MDV , IM, 0.5 mL (Fluzone) 09/13/2014,08/10/2013,10/07/2012,01/2011 Seasonal Influenza Virus Vac cine, Unspecified Formulation 10/11/2023,09/15/2021,09/01/2019,03/2017,08/27/2016,09/13/2014,08/10/20 13,10/07/2012,09/03/2011 Seasonal Influenza, PF, 6 M & above, IM , (FluLaval or Fluzone) 09/04/2017 Seasonal Influenza, Quadriva lent Hd (Fluzone Hd) 10/11/2023 Seasonal Influenza, Quadriva lent Hd, 65+ Yrs 09/30/2020 Seasonal Influenza, Quadriva lent, No Preserve, IM 09/01/2019,08/27/2016,10/25/2015 Seasonal Influenza, Trivalen t, Adjuvanted, 65+ YRS, PF, (Fluad) 09/15/2021 TD - Tetanus/Diptheria (ADULT) 12/19/1999 TDAP (age 10 and older)(Boostrix) 09/28/2022 TDAP, Age 7 and older, IM (Adacel) 02/12/2011 Zoster Vaccine Recombinant (Shingrix) 03/22/2024 ,10/18/2023 documented as of this encounter 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 Tobacco Use Types Packs/Day Years Used Date Smoking Tobacco: Never Smokeless Tobacco: Never Alcohol Use Standard Drinks/Week Comments Not Currently 0 (1 standard drink = 0.6 oz pur e alcohol) 1971 - last use PHQ-2 Answer Date Recorded PHQ Adult Total Score 2 08/10/2024 Hunger Vital Sign Answer Date Recorded Within the past 12 months, y ou worried that your food would run out before you got the money to buy more. Never true 08/10/20 24 Within the past 12 months, t he food you bought just didn't last and you didn't have money to get more. Never true 08/10/2024 Childcare Answer Date Recorded Do you feel overwhelmed with taking care of a child, family member or friend? No 08/10/2024 Does your family need help f inding childcare? (Household - for ages 0-17 years) Not on file 08/10/2024 Clothing Answer Date Recorded Have you been unable to get clothing when it was really needed? No 08/10/2024 Is your family able to get c lothes or diapers when needed? (Household - for ages 0-17 years) Not on file 08/10/2024 Personal Safety Answer Date Recorded Do you feel unsafe or have concerns for your saf ety? No 08/10/2024 Do you have concerns for you r family's safety? (Household - for ages 0-17 years) Not on file 08/10/2024 Utilities Answer Date Recorded Do you have trouble paying y our heating, water, or electric bill? No 08/10/2024 Is your family able to pay t he heat, water, or electric bill? (Household - for ages 0-17 years) Not on file 08/10/2024 Does your family have access to good internet? (Household - for ages 0-17 years) Not on file 08/10/2024 Employment Status Answer Date Recorded Are you unemployed or without regular income? No 08/10/2024 Does the household have a re gular source of income? (Household - for ages 0-17 years) Not on file 08/10/2024 Social Connections Answer Date Recorded How often do you feel lonely or isolated from those around you? Sometimes 08/10/2024 Financial Resource Strain Answer Date R ecorded Do you have any trouble payi ng for your medications, or do you think you might in the future? No 08/10/2024 Does your family have troubl e paying for medicine? (Household - for ages 0-17 years) Not on file 08/10/2024 Transportation Needs Answer Date Record ed Do you have trouble getting a ride to medical visits or work? (Adult - for ages 18 years and over) Not on file 08/10/2024 Does your family have a hard time getting a ride to doctors visits? (Household - for ages 0-17 years) Not on file 08/10/2024 Has lack of transportation k ept you from medical appointments, meetings, work, or from getting things needed for daily living? Check all that apply. No 08/10/2024 Do you (or your family) have trouble finding or paying for a ride (transportation)? (Household - for ages 0-17 years) Not on file 08/10/2024 Housing Stability Answer Date Recorded Do you currently live in a s helter or have no steady place to sleep at night? No 08/10/2024 Do you think you are at risk of becoming homeless? (Adult - for ages 18 years and over) Not on file 08/10/2024 Does your family worry about paying for your home or becoming homeless? (Household - for ages 0-17 years) Not on file 0 08/10/2024 Are you homeless or worried that you might be in the future? No 08/10/2024 Are you (or your family) tomer eless or worried that you might be in the future? (Household - for ages 0-17 years) Not on file Food Insecurity Answer Date Recorded Do you need food for this week? No 08/10/2024 Are you able to get enough f ood for your family? (Household - for ages 0-17 years) Not on file 08/10/2024 Does your family need food t his week? (Household - for ages 0-17 years) Not on file 08/10/2024 Do you always have enough fo od for your family? 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 Answer Date of Assessment Author No 05/08/2024 6:04 PM Mg Huggins RN * Are you blind or do you have serious difficulty seeing, even when wearing glasses? Answer Date of Assessment Author No 05/08/2024 6:04 PM Mg Huggins RN * Do you have serious difficulty walking or climbing stairs? (5 years old or older) Answer Date of Assessment Author Yes 05/08/2024 6:04 PM Mg Huggins RN * Do you have difficulty dressing or bathing? (5 years old or older) Answer Date of Assessment Author No 05/08/2024 6:04 PM Mg Huggins RN * Because of a physical, mental, or emotional condition, do you have difficulty doing errands alone such as visiting a doctors office or shopping? (15 years old or older) Answer Date of Assessment Author No 05/08/2024 6:04 PM Mg Huggins RN documented as of this encounter Mental Status * Because of a physical, mental, or emotional condition, do you have serious difficulty concentrating, remembering, or making decisions? (5 years old or older) Answer Entry Date Author No 05/08/2024 6:04 PM Mg Huggins RN documented in this encounter Miscellaneous Notes * Telephone Encounter - Pari Cobian LPN - 12/01/2024 3:32 PM EST My G sent. * Telephone Encounter - Pari Cobian LPN - 12/01/2024 3:28 PM EST Order faxed to BB and [facility] at [facility]. * Telephone Encounter - Josephine Murphy RN - 12/01/2024 3:24 PM EST Called [facility] lab- H/H 6.4/ 19.0. Patient will need 1 unit PRBC on . : can you please fax order? * Telephone Encounter - Josephine Murphy RN - 12/01/2024 1:51 PM EST Labs are being drawn now. * Telephone Encounter - Pari Cobian LPN - 11/30/2024 1:09 PM EST Patient to receive 1 unit prbc. Called [facility] blood bank. Spoke with Cornel. Spoke with Rosana in [place]. Spoke with Neema in [place]. Called [facility] central scheduling. Patient scheduled for 12/03/2024 at 09:00 am. Awaiting lab results before faxing orders. * Addendum Note - Abdoul Oliva RN - 11/30/2024 12:55 PM ESTAddended by: ABDOUL OLIVA on: 11/30/2024 12:55 PM Modules accepted: Orders * Telephone Encounter - Abdoul Oliva RN - 11/30/2024 12:49 PM EST Called patient back, he is going to [facility] for paracentesis tomorrow. Will fax order for CBCD/Type and screen for him to have done tomorrow while he is there. - please schedule patient for tentative blood transfusion on 12/03, pt can go anytime. This will be dependent on the results of his lab work from 12/01 but we won't have the results until morning of12/03. Advise scheduling later morning/early afternoon. TT sent to Inga Whitehead in IR, she is able to print the orders from her computer. * Telephone Encounter - Bre Alexander OSA - 11/30/2024 12:36 PM EST Patient called to follow up on his previous message to have an order sent to [facility] for a blood transfusion and orders for type and screen lab work so he can have that completed at [facility] tomorrow. Please contact Luis at [phone]. Thank you. * Telephone Encounter - Aspen De Santiago OSA - 11/30/2024 8:11 AM EST Patient calling asking if he can get an order sent over to [facility] for a blood transfusion. States he has been feeling very tired. documented in this encounter Plan of Treatment Upcoming Encounters Date Type Department Care Team (Late st Contact Info) Description 12/03/2024 7:05 AM EST Laboratory Lab [facility] [address] [place], [place] [address] [facility] [address] [place], [place] [address] 12/10/2024 7:05 AM EST Laboratory Lab [facility] [address] [place], [place] [address] [facility] [address] [place], [place] [address] 12/17/2024 7:05 AM EST Laboratory Lab [facility] [address] [place] [address] [facility] [address] [place] [address] 12/24/2024 7:05 AM EST Laboratory Lab [facility] [address] [place] [address] [facility] [address] [place] [address] 12/31/2024 7:05 AM EST Laboratory Lab [facility] [address] [place] [address] [facility] [address] [place] [address] 01/07/2025 7:05 AM EST Laboratory Lab [facility] [address] [employer] [address] [place] [address] [facility] [address] [place] [address] 01/13/2025 2:00 PM EST Office Visit Hematology/Oncology [facility] [address] [facility] [place] [id number] Jennifer Ramires MD 200 [facility] [place] [address] 01/14/2025 7:05 AM EST Laboratory Lab [facility] [address] [employer] [address] [place] [address] [facility] [address] [place] [address] 01/21/2025 7:05 AM EST Laboratory Lab [facility] [address] [place] [address] [facility] [address] [place], [place] [address] 01/26/2025 3:15 PM EST Office Visit Urology, [facility] [address] [address] [address] Frank Peraza MD [address] [place] [address] 01/28/2025 7:05 AM EST Laboratory Lab [facility] [address] [place], [place] [address] [facility] [address] [place] [address] 02/04/2025 7:05 AM EST Laboratory Lab [facility] [address] [facility] [place] [address] [facility] [address] [place] [address] 02/10/2025 3:00 PM EDT Office Visit Gastroenterology, [facility] [address] [place] [address] Lamar Tatum CRNP 132 [facility] [place] [address] 02/11/2025 7:05 AM EDT Laboratory Lab [facility] [address] [facility], [place] [address] [facility], [facility], [place] [address] 02/18/2025 7:05 AM EDT Laboratory Lab [facility] [address] [facility], [place] [address] [facility], [facility] [address] [facility] [place] [address] 02/25/2025 7:05 AM EDT Laboratory Lab [facility] [address] [employer] [address] [facility] [place] [address] [facility], [facility] [address] [facility] [place] [address] 03/04/2025 7:05 AM EDT Laboratory Lab [facility] [address] [place] [address] [facility] [address] [facility] [place] [address] 03/11/2025 7:05 AM EDT Laboratory Lab [facility] [address] [facility] [place] [address] [facility], [facility] [address] [facility] [place] [address] 03/18/2025 7:05 AM EDT Laboratory Lab [facility] [address] [place] [address] [facility] [address] [facility] [place] [address] 03/25/2025 7:05 AM EDT Laboratory Lab [facility] [address] [facility] [place] [address] [facility] [address] [facility] [place] [address] 03/29/2025 2:45 PM EDT Office Visit Dermatology [facility] [address] [place] [address] Francisco Watson MD [address] [place] [address] 04/01/2025 7:05 AM EDT Laboratory Lab [facility] [address] [facility] [place] [address] [facility] [address] [facility] [place] [address] 04/08/2025 7:05 AM EDT Laboratory Lab [facility] [address] [place] [address] [facility] [address] [facility] [place] [address] 04/15/2025 7:05 AM EDT Laboratory Lab [facility] [address] [place] [address] [facility] [address] [place] [address] Scheduled Orders Name Type Priority Associated Diagnoses Orde r Schedule TYPE AND SCREEN Lab Routine Iron deficiency anemia due to chronic blood loss Expected: 12/01/2024 (Approximate), Expires: 12/31/2025 CBC WITH WBC DIFFERENTIAL Lab Routine Iron deficiency anemia due to chronic blood loss Expected: 12/01/2024 (Approximate), Expires: 11/30/2025 Scheduled Procedures Name Priority Associated Diagnoses Date/Ti me COLONOSCOPY FLEXIBLE PROXIMAL DIAGNOSTIC Recall History of colonic polyps Portal hypertensive gastropathy (HCC) ESOPHAGOGASTRODUODENOSCOPY ( EGD), FLEXIBLE, TRANSORAL, DIAGNOSTIC Recall History of colonic polyps Portal hypertensive gastropathy (HCC) Health Maintenance Due Date Last Done Comments Cologuard 1995 Fecal Occult Blood Test 05/08/2015 05/08/2014 Adult Wellness Visit 03/07/2019 03/07/2018 Diabetic Eye Exam 01/17/2024 01/17/2023, , 01/17/2023, Additional history exists Influenza Vaccine (FLU shot) (#1) 2024 10/11/2023, 10/11/2023, 09/15/2021, Additional history exists Colonoscopy 08/09/2024 08/09/2023, 06/2022, 11/07/2022, Additional history exists Colorectal Cancer Screening 08/09/2024 HbA1c 12/31/2024 06/30/2024, 0506/2024, 11/27/2023, Additional history exists GFR 04/12/2025 10/13/2024, 07/02, 06/30/2024, Additional history exists Albumin/Creatinine Ratio 05/19/202505/19/2 024, 07/12/2023, 10/01/2022, Additional history exists CKD PHOS USE SMARTSET 73549 05/19/202505/02, 05/08/2024, 04/07/2024, Additional history exists Diabetic Foot Exam 05/19/2025 05/19/2024, 0 03/06/2023, 01/03/2022, Additional history exists Depression Screening 08/10/2025 08/10/2024 CKD HGB USE SMARTSET 55449 11/17/202511/17, 11/03/2024, 11/02/2024, Additional history exists Sigmoidoscopy 04/12/2027 04/12/2022 Lipid Panel 04/07/2029 04/07/2024, 01/03, 11/20/2021, Additional history exists DTap/Tdap Vaccines (3 - Td or Tdap) 09/28/2032 09/28/2022, 02/12/2011, 12/19/1999 Pneumococcal Vaccine: 50+ Years Completed 09/14/2022, 08/28/2022, 05/01/2017, Additional history exists RETIRED - COLONOSCOPY-ANNUAL AGES 18-100 Discontinued 08/09/2023, 11/07/2022, 11/07/2022, Additional history exists RETIRED - COLONOSCOPY-EVERY 5 YRS AGES 18-100 Discontinued 08/09/2023, 11/07/2022, 11/07/2022, Additional history exists COVID-19 Vaccine Discontinued 10/18/2023, , 03/08/2021, Additional history exists Zoster Vaccines Completed 03/22/2024, 10/18/2023 HPV (Gardasil) Vaccine Aged Out No lo nger eligible based on patient's age to complete this topic MENINGOCOCCAL (MENACTRA/MENVEO) Aged Out No longer eligible based on patient's age to complete this topic documented as of this encounter Medical Devices Implanted Type Area Coffee Maker Servicer Device Identifier Shelf Expiration Date Model / Serial / Lot Clareon Iol Aspheric Hydrophobic Acrylic Iol Implanted:Qty: 1 on 04/23/2023 by Cody Gonzalez DO at [facility] Lens Left: Eye 11/12/2025 [id number] / [id number] / Viatorr Tips Endoprosthesis 8-10 Mm X 8cm / 2cm Implanted:Qty: 1 on 10/07/2020 by Go Alvarado MD at [facility] Right: Abdomen 03/03/2023 [id number] / / [id number] Description:Viatorr TIPS End oprosthesis 8-10 mm x 8cm / 2cm, Manufactored by [employer] [email or web address] Syr Pf 2ml Embospheres 100-300 - [id number] Implanted:Qty: 1 on 04/18/2021 by Kevin Lim DO at OR [facility] Left: Abdomen [employer] [id number] 11/25/2023 [id number] / / [id number] Lipiodol Injection - [id number] Implanted:Qty: 1 on 03/28/2022 at [facility] [employer] 03/01/2023 [id number] 01-2 / / [id number] Syr Pf 2ml Embospheres 100-300 - [id number] Implanted:Qty: 1 on 03/28/2022 at [facility] [employer] [id number] 08/31/2024 [id number] / / [id number] Clareon Iol Aspheric Hydrophobic Acrylic Iol Implanted:Qty: 1 on 04/02/2023 by Cody Gonzalez DO at OR [facility] Right: Eye [employer] 11/12/2025 [id number] / [id number] / Syr Pf 2ml Embospheres 100-300 - [id number] Implanted:Qty: 1 on 06/11/2024 at [facility] [employer] [id number] 01/02/2027 [id number] / / [id number] Cath Diag Cobra 2 [id number] - [id number] Implanted:Qty: 1 on 06/11/2024 at [facility] [employer] [id number] 10/06/2026 [id number] / / [id number] documented as of this encounter Visit Diagnoses Diagnosis Iron deficiency anemia due to chronic blood loss- Primary Iron deficiency anemia secondary to blood loss (chronic) documented in this encounter Advance Directives Documents on File Type Date Recorded 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
--- OUTSIDE RECORDS SUMMARY | 2024-12-04 16:49 | External Medical Summary | Summary of Care ---
Author Name Unknown Organization [facility] Address [address] [facility] [address] Phone [phone] Care Team Providers Care Sheet Metal Helper Name Role Phone Kristen Vences DO Primary Care Provider [phone] Encounter Details Date Type Department Care Team (Late st Contact Info) Description 12/01/2024 Result Scan Unspecified Department Lamar Tatum CRNP [address] [place] [address] <No scans attached> Allergies No known active allergiesdocumented as of this encounter (statuses as of 12/03/2024) Medications OneTouch Verio In Vitro Strip (Glucose Blood)Indications: Type 2 diabetes mellitus with hemoglobin A1c goal of less than 7.0% ([facility]) Use to test blood sugars 3 times a day 300 Strip 5 09/27/20 Active Additional Information Patient not taking.Reported on 11/26/2024 BD Pen Needle Elizabeth 2nd Gen 32G X 4 MM USE DIRECTED TO ADMINISTER INSULIN AT DINNER DAILY 09/25/20 Active Multivitamin Men 50+ Oral Tablet Take [...] Active Probiotic (Lactobacillus) Oral Capsule 1 Capsule. 05/17/20 23 Active oxygen IN GAS Use 2 L/min(Oxygen) as directed at bedtime. Active Albumin Human 25 % Intravenous SolutionIndication s:Cirrhosis of liver with ascites, unspecified hepatic cirrhosis type (HCC) 25Gm before and after paracentesis 100 mL 08/22/20 23 Active Metoclopramide HCl 5 MG Oral Tablet (Reglan) One tab as often as 3 times a day, if needed for nausea 90 Tablet 3 08/30/20 23 Active rifAXIMin 550 MG Oral Tablet (Xifaxan)Indicatio ns:Cirrhosis of liver (HCC),Hepatic encephalopathy (HCC) Take 1 Tablet by mouth in the morning and 1 Tablet before bedtime. 180 Tablet 5 11/26/20 23 Active Albumin Human 25 % Intravenous SolutionIndication [...] to 60 minute each unit 50 mL 02/27/20 24 Active Triamcinolone Acetonide 0.1 % External Cream (Aristocort) Apply to psoriatic lesions on arms, legs, hands, feet, chest, back, abdomen twice a day as needed for 2-3 weeks 453.6 g 03/13/20 24 Active Albumin Human 25 % Intravenous SolutionIndication [...] 60 minute each unit 300 mL 100 03/17/20 24 Active Potassium Chloride Stephanie ER 20 MEQ Oral Tablet Extended Release 1 Tablet in the morning. 03/20/20 24 Active Finasteride 5 MG Oral Tablet (Proscar) TAKE 1 TABLET BY MOUTH IN THE MORNING 90 Tablet 1 07/15/20 24 Active Spironolactone 100 MG Oral Tablet (Aldactone) Take 1 Tablet by mouth in the morning. 90 Tablet 3 07/20/20 24 Active Cranberry 4200 MG Oral Capsule Take by mouth. 2 pills daily Active Solifenacin Succinate 5 MG Oral Tablet (VESIcare) Take 1 Tablet by mouth in the morning. 30 Tablet 6 08/17/20 24 Active Pantoprazole Sodium 40 MG Oral Tablet Delayed Release (Protonix)Indicati ons:GAVE (gastric antral vascular ectasia) TAKE 1 TABLET BY MOUTH IN THE MORNING AND 1 IN THE EVENING 60 Tablet 5 09/01/20 24 Active Additional Information Patient taking differently: Once daily, Reported on 11/26/2024 Furosemide 20 MG Oral Tablet (Lasix) 2 tabs by mouth once daily 60 Tablet 5 11/09/20 24 Active Lactulose 10 GM Oral Packet (Kristalose)Indica tions:Cirrhosis of liver without ascites, unspecified hepatic cirrhosis type (HCC) Take 1 Packet by mouth in the morning and 1 Packet before bedtime. Take one packet by mouth twice daily - titrate to 3 or more BMs/day.. 60 Each 12 11/16/20 24 Active DULoxetine HCl 30 MG Oral Capsule Delayed Release Particles (Cymbalta) Take 1 capsule by mouth in the morning 90 Capsule 2 11/16/20 24 Active Allopurinol 100 MG Oral Tablet (Zyloprim)Indicati ons:Gout of big toe TAKE 2 TABLETS BY MOUTH IN THE MORNING 180 Tablet 2 11/16/20 24 Active Lantus SoloStar 100 UNIT/ML Subcutaneous Solution Pen-injector INJECT 25 UNITS SUBCUTANEOUSLY IN THE EVENING WITH SUPPER 15 mL 1 12/01/20 24 Active documented as of this encounter (statuses as of 12/03/2024) Active Problems Problem Noted Date Diagnosed Date [...] as of this encounter (statuses as of 12/03/2024) Resolved Problems Problem Noted Date Diagnosed Date [...] as of this encounter (statuses as of 12/03/2024) Immunizations Name Administration Dates Next Due COVID-19 mRNA, LNP-s, No Pre serve, 2-Dose Series (EpiVax) 03/08/2021,02/15/2021 COVID-19, MRNA-LNP, PF, 50 M CG/0.5 mL, 12 YRS AND ABOVE, IM (MODERNA-Spikevax) 10/18/2023 HepA Inact/HepB Recomb>=18yrs old 12/04/2019,04/2019,05/20/2019 11/19/2019 PPD 06/18/2017, 3,01/09/2012,06/2011 Pneumococcal Conjugate Vacc, 13 Valent (Prevnar) 05/01/2017 Pneumococcal Polysaccharide PPV23 (Pneumovax) 09/14/2022,08/28/2022,10/25/2015,07/02 Season Influenza, Quad, PF, Adjuvanted, 65+ Yrs, IM (FLUAD) 10/07/2020(Deferred: Patient Refused - pt says he already had his shot last month at [facility] [employer]y Lyons and Mckinley Cobian made aware) [...] Mg Huggins RN documented in this encounter Plan of Treatment Upcoming Encounters Date Type Department Care Team (Late st Contact Info) Description 12/10/2024 7:05 AM EST Laboratory Lab Mobile Phlebotomy [facility] [address] [place], [place] [address] [facility], [facility] [address] [place], [place] [address] 12/17/2024 7:05 AM EST Laboratory Lab Mobile Phlebot[facility] [address] [place] [address] [facility], [facility] [address] [place], [place] [address] 12/24/2024 7:05 AM EST Laboratory Lab [facility] Phlebot[facility] [address] [place] [address] [facility] [address] [place] [address] 12/31/2024 7:05 AM EST Laboratory Lab Mobile Phlebotomy [facility] [email or web address] [place], [place] [address] M[facility], [facility] Draw [address] [place] [address] 01/07/2025 7:05 AM EST Laboratory Lab Mobile Phlebotomy [facility] [address] [email or web address] [address] M[facility], [facility] Draw [address] [place] [address] 01/13/2025 2:00 PM EST Office Visit Hematology/Oncology [facility] [address] [place] [phone] Jennifer Ramires MD [address] [place] [address] 01/14/2025 7:05 AM EST Laboratory Lab Mobile Phlebotomy [facility] [address] [facility] [place], [place] [address] [facility], [facility] [address] [facility] [place], [place] [address] 01/21/2025 7:05 AM EST Laboratory Lab Mobile Phlebotomy [facility] [address] [place] [address] M[facility], [facility] [address] [facility] [place], [place] [address] 01/26/2025 3:15 PM EST Office Visit Urology, [facility] [address] [place] [address] Frank Peraza MD [address] [id number] 01/28/2025 7:05 AM EST Laboratory Lab Mobile Phlebotomy [facility] [email or web address] [place], [place] [address] Mvmg, [facility] Draw [address] [place] [address] 02/04/2025 7:05 AM EST Laboratory Lab Mobile Phlebotomy [facility] [address] [address] Mvmg, [facility] [address] [place] [address] 02/10/2025 3:00 PM EDT Office Visit Gastroenterology, [facility] [address] [place] [address] Lamar Tatum CRNP [address] [place] [address] 02/11/2025 7:05 AM EDT Laboratory Lab Mobile Phlebotomy [facility] [address] [place] [address] M[facility]mg, [facility] [address] [place] [address] 02/18/2025 7:05 AM EDT Laboratory Lab Mobile Phlebotomy [facility] [address] [place] [address] Mvmg, [facility] [address] [place] [address] 02/25/2025 7:05 AM EDT Laboratory Lab Mobile Phlebotomy [facility] [address] [place] [address] Mvmg, [facility] [address] [place] [address] 03/04/2025 7:05 AM EDT Laboratory Lab Mobile Phlebotomy [facility] [address] [place] [address] Mvmg, Gml [facility] Draw [address] [place] [address] 03/11/2025 7:05 AM EDT Laboratory Lab Mobile Phlebotomy [facility] [address] [place] [address] M[facility]mg, [facility] Draw [address] [place] [address] 03/18/2025 7:05 AM EDT Laboratory Lab Mobile Phlebotomy [facility] [address] [employer] [address] [place], [place] [address] M[facility], [facility] Draw [address] [place] [address] 03/25/2025 7:05 AM EDT Laboratory Lab Mobile Phlebotomy [facility] [email or web address] [place], [place] [address] Mv[facility], Gml [facility] Home Draw [address] [place] [address] 03/29/2025 2:45 PM EDT [facility] [address] [facility] [place], [place] [address] Francisco Watson MD [address] [facility] [place], [place] [address] 04/01/2025 7:05 AM EDT Laboratory Lab Mobile Phlebotomy [facility] [address] [email or web address] [address] M[facility], [facility] Draw [address] [place] [employer], [place] [address] 04/08/2025 7:05 AM EDT Laboratory Lab Mobile Phlebotomy [facility] [address] [place] [address] Mvmg, G[facility] Draw [address] [place] [address] 04/15/2025 7:05 AM EDT Laboratory Lab Mobile Phlebotomy [facility] [address] [place] [address] M[facility]mg, Gml [facility] Draw [address] [place] [address] Scheduled Procedures Name Priority Associated Diagnoses Date/Ti me COLONOSCOPY FLEXIBLE PROXIMAL DIAGNOSTIC Recall History of colonic polyps Portal hypertensive gastropathy (HCC) ESOPHAGOGASTRODUODENOSCOPY ( EGD), FLEXIBLE, TRANSORAL, DIAGNOSTIC Recall History of colonic polyps Portal hypertensive gastropathy (HCC) Health Maintenance Due Date Last Done Comments Colashleyuard 1995 Fecal Occult Blood Test 05/08/2015 05/08/2014 Adult Wellness Visit 03/07/2019 03/07/2018 Diabetic Eye Exam 01/17/2024 01/17/2023, , 01/17/2023, Additional history exists Influenza Vaccine (FLU shot) (#1) 2024 10/11/2023, 10/11/2023, 09/15/2021, Additional history exists Colonoscopy 08/09/2024 08/09/2023, 06/2022, 11/07/2022, Additional history exists Colorectal Cancer Screening 08/09/2024 HbA1c 12/31/2024 06/30/2024, 06/2024, 11/27/2023, Additional history exists GFR 04/12/2025 10/13/2024, 07/02, 06/30/2024, Additional history exists Albumin/Creatinine Ratio 05/19/2025 024, 07/12/2023, 10/01/2022, Additional history exists CKD PHOS USE SMARTSET 90469 05/19/202505/02, 05/08/2024, 04/07/2024, Additional history exists Diabetic Foot Exam 05/19/2025 05/19/2024, 0 03/06/2023, 01/03/2022, Additional history exists Depression Screening 08/10/2025 08/10/2024 CKD HGB USE SMARTSET 99318 11/17/202511/17, 11/03/2024, 11/02/2024, Additional history exists Sigmoidoscopy [...] this encounter Medical Devices Implanted Type Area Railway Signal Technician Device Identifier Shelf Expiration Date Model / Serial / Lot Clareon Iol Aspheric Hydrophobic Acrylic Iol Implanted:Qty: 1 on 04/23/2023 by Cody Gonzalez DO at OR [facility] Lens Left: Eye 11/12/2025 CNA0T0 / [id number] / Viatorr Tips Endoprosthesis 8-10 Mm X 8cm / 2cm Implanted:Qty: 1 on 10/07/2020 by Go Alvarado MD at [facility] Right: Abdomen 03/03/2023 [id number] / / [id number] Description:Viatorr TIPS End oprosthesis 8-10 mm x 8cm / 2cm, Manufactored by [employer] [email or web address] Syr Pf 2ml Embospheres 100-300 - [id number] Implanted:Qty: 1 on 04/18/2021 by Kevin Lim DO at OR [facility] Left: Abdomen [employer] [id number] 11/25/2023 S220GH / / [id number] Lipiodol Injection - [id number] Implanted:Qty: 1 on 03/28/2022 at [facility] [employer] 03/01/2023 [id number] 01-2 / / [id number] Syr Pf 2ml Embospheres 100-300 - [id number] Implanted:Qty: 1 on 03/28/2022 at [facility] [employer] [id number] 08/31/2024 S220GH / / [id number] -[id number] Clareon Iol Aspheric Hydrophobic Acrylic Iol Implanted:Qty: 1 on 04/02/2023 by Cody Gonzalez DO at [facility] Right: Eye JAZMIN 11/12/2025 CNA0T0 / [id number] / Syr Pf 2ml Embospheres 100-300 - [id number] Implanted:Qty: 1 on 06/11/2024 at [facility] [employer] [id number] 01/02/2027 S220GH / / [id number] -[id number] Cath Diag Cobra 2 [id number] - [id number] Implanted:Qty: 1 on 06/11/2024 at [facility] [employer] [id number] 10/06/2026 [id number] / / [id number] documented as of this encounter Procedures Procedure Name Priority Date/Time Associated Diagnosis Comments RADIOLOGY SCANNED RESULT 12/01/2024 documented in this encounter Results * RADIOLOGY SCANNED RESULT (12/01/2024) 12/01/2024 Lamar [facility] RADIOLOGY SERVI ANJALI Final Result documented in this encounter Advance Directives Documents on File Type Date Recorded Patient Mill Dresser Expl anation Advance Directives and Living Will 12/11/2022 ADVANCE DIRECTIVE / LIVING WILL LIVING WILL Power of Extension Specialist 12/11/2022 POWER OF A TTORNEY * [...] Discussed due to patient's condition Care Teams Sheet Metal Helper Relationship Specialty Start Date End Date Kristen Vences DO [address] [place] [address] PCP - General Family Medicine 05/19/24 documented as of this encounter
--- OUTSIDE RECORDS SUMMARY | 2024-12-04 16:49 | External Medical Summary | Summary of Care ---
Author Name Unknown Organization [facility] Address [address] [facility] [place] [address] Phone [phone] Care Team Providers Care Mixer Operator Hot Metal Name Role Phone Kristen Vences DO Primary Care Provider [phone] Encounter Details Date Type Department Care Team (Late st Contact Info) Description 12/03/2024 Orders Only Family Practice [facility] [address] [place] [address] Kristen Vences DO [address] [place] [address] Allergies No known active allergiesdocumented as of this encounter (statuses as of 12/03/2024) Medications OneTouch Verio In Vitro Strip (Glucose Blood)Indications: Type 2 diabetes mellitus with hemoglobin A1c goal of less than 7.0% ([facility]) Use to test blood sugars 3 times a day 300 Strip 5 09/27/20 22 Active Additional Information Patient not taking.Reported on 11/26/2024 BD Pen Needle Elizabeth 2nd Gen 32G X 4 MM USE DIRECTED TO ADMINISTER INSULIN AT DINNER DAILY 09/25/20 22 Active Multivitamin Men 50+ Oral Tablet Take [...] mRNA, LNP-s, No Pre serve, 2-Dose Series (geolad) 03/08/2021,02/15/2021 COVID-19, MRNA-LNP, PF, 50 M CG/0.5 mL, 12 YRS AND ABOVE, IM (MODERNA-Spikevax) 10/18/2023 HepA Inact/HepB Recomb>=18yrs old 12/04/2019,04/2019,05/20/2019 11/19/2019 PPD 06/18/2017, 3,01/09/2012,06/2011 Pneumococcal Conjugate Vacc, 13 Valent (Prevnar) 05/01/2017 Pneumococcal Polysaccharide PPV23 (Pneumovax) 09/14/2022,08/28/2022,10/25/2015,07/02 Season Influenza, Quad, PF, Adjuvanted, 65+ Yrs, IM (FLUAD) 10/07/2020(Deferred: Patient Refused - pt says he already had his shot last month at [facility] [employer]y Lyons and Mckinley Cobian made [...] Phlebotomy [facility] [address] [place] [address] [facility], [facility] Draw [address] [place] [address] 12/17/2024 7:05 AM EST Laboratory Lab Mobile Phlebotomy [facility] [address] [place], [place] [address] [facility], [facility] Draw [address] [place], [place] [address] 12/24/2024 7:05 AM EST Laboratory Lab Mobile Phlebotomy [facility] [address] [place] [address] M[facility], Gml Mobile Home Draw [address] [place] [address] 12/31/2024 7:05 AM EST Laboratory Lab Mobile Phlebotomy [facility] [address] [email or web address] [address] Mvmg, [facility] Draw [address] [place] [address] 01/07/2025 7:05 AM EST Laboratory Lab Mobile Phlebotomy [facility] [address] [place] [address] Mvmg, Gml [facility] Draw [address] [place] [address] 01/13/2025 2:00 PM EST Office Visit Hematology/Oncology [facility] [address] [place] [phone] Jennifer Ramires MD [address] [place] [address] 01/14/2025 7:05 AM EST Laboratory Lab Mobile Phlebotomy [facility] [address] [place] [address] Mvmg, Gml [facility] Draw [address] [place] [address] 01/21/2025 7:05 AM EST Laboratory Lab Mobile Phlebotomy [facility] [address] [place] [address] Mv[facility], Gml Mobile Home Draw [address] [email or web address] [address] 01/26/2025 3:15 PM EST Office Visit Urology, [facility] [address] [place] [address] Frank Peraza MD [address] [place] [address] 01/28/2025 7:05 AM EST Laboratory Lab Mobile Phlebotomy [facility] [address] [place] [address] Mvmg, Gml Mobile Home Draw [address] [place] [address] 02/04/2025 7:05 AM EST Laboratory Lab Mobile Phlebotomy [facility] [address] [place] [address] Mvmg, Gml [facility] Home Draw [address] [place] [address] 02/10/2025 3:00 PM EDT Office Visit Gastroenterology, [facility] [address] [place] [address] Lamar Tatum CRNP [address] [place] [address] 02/11/2025 7:05 AM EDT Laboratory Lab Mobile Phlebotomy [facility] [address] [email or web address] [address] Mvmg, Gml Mobile Home Draw [address] [facility] [place] [address] 02/18/2025 7:05 AM EDT Laboratory Lab Mobile Phlebotomy [facility] [address] [facility] [place] [address] Mvmg, Gml Mobile Home Draw [address] [facility] [place] [address] 02/25/2025 7:05 AM EDT Laboratory Lab Mobile Phlebotomy [facility] [address] [email or web address] [address] Mvmg, Gml Mobile Home Draw [address] [email or web address] [facility] [place] [address] 03/04/2025 7:05 AM EDT Laboratory Lab Mobile Phlebotomy [facility] [address] [email or web address] [address] Mvmg, Gml Mobile Home Draw [address] [place] [address] 03/11/2025 7:05 AM EDT Laboratory Lab Mobile Phlebotomy [facility] [address] [facility] [place] [address] Mvmg, Gml Mobile Home Draw [address] [place] [address] 03/18/2025 7:05 AM EDT Laboratory Lab Mobile Phlebotomy [facility] [address] [place], [place] [address] Mvmg, Gml Mobile Home Draw [address] [email or web address] [address] 03/25/2025 7:05 AM EDT Laboratory Lab Mobile Phlebotomy [facility] [address] [place] [address] Mvmg, Gml Mobile Home Draw [address] [facility] [place] [address] 03/29/2025 2:45 PM EDT Office Visit Dermatology [facility] [address] [facility] [place], [place] [address] Francisco Watson MD [address] [place] [address] 04/01/2025 7:05 AM EDT Laboratory Lab Mobile Phlebotomy [facility] [address] [place], [place] [address] Mvmg, Gml Mobile Home Draw [address] [place] [address] 04/08/2025 7:05 AM EDT Laboratory Lab Mobile Phlebotomy [facility] [address] [place] [address] Mvmg, Gml Mobile Home Draw [address] [place] [address] 04/15/2025 7:05 AM EDT Laboratory Lab Mobile Phlebotomy [facility] [address] [place] [address] Mvmg, Gml Mobile Home Draw [address] [place], [place] [address] Scheduled Procedures Name Priority Associated Diagnoses Date/Ti [...] Additional history exists CKD PHOS USE SMARTSET 22926 05/19/202505/02, 05/08/2024, 04/07/2024, Additional history exists Diabetic Foot Exam 05/19/2025 05/19/2024, 0 03/06/2023, 01/03/2022, Additional history exists Depression Screening 08/10/2025 08/10/2024 CKD HGB USE SMARTSET 45143 12/01/202512/01, 11/17/2024, 11/03/2024, Additional history exists Sigmoidoscopy 04/12/2027 04/12/2022 Lipid [...] this encounter Medical Devices Implanted Type Area Internet Designer Device Identifier Shelf Expiration Date Model / Serial / Lot Clareon Iol Aspheric Hydrophobic Acrylic Iol Implanted:Qty: 1 on 04/23/2023 by Cody Gonzalez DO at OR [facility] Lens Left: Eye 11/12/2025 CNA0T0 / [id number] / Viatorr Tips Endoprosthesis 8-10 Mm X 8cm / 2cm Implanted:Qty: 1 on 10/07/2020 by Go Alvarado MD at [facility] Right: Abdomen 03/03/2023 [id number] / / [id number] Description:Viatorr TIPS End oprosthesis 8-10 mm x 8cm / 2cm, Manufactored by [employer] [email or web address] Syr Pf 2ml Embospheres 100-300 - [id number] Implanted:Qty: 1 on 04/18/2021 by Kevin Lim DO at OR [facility] Left: Abdomen [employer] [id number] 11/25/2023 S220GH / / [id number] Lipiodol Injection - [id number] Implanted:Qty: 1 on 03/28/2022 at [facility] [employer] 03/01/2023 [id number] -2 / / [id number] Syr Pf 2ml Embospheres 100-300 - [id number] Implanted:Qty: 1 on 03/28/2022 at [facility] [employer] [id number] 08/31/2024 S220 / / [id number] -5 Clareon Iol Aspheric Hydrophobic Acrylic Iol Implanted:Qty: 1 on 04/02/2023 by Cody Gonzalez DO at OR [facility] Right: Eye JAZMIN 11/12/2025 CNA0T0 / [id number] / Syr Pf 2ml Embospheres 100-300 - [id number] Implanted:Qty: 1 on 06/11/2024 at [facility] [employer] [id number] 01/02/2027 S220 / / [id number] -5 Cath Diag Cobra 2 [id number] - [id number] Implanted:Qty: 1 on 06/11/2024 at [facility] [employer] [id number] 10/06/2026 [id number] / / [id number] documented as of this encounter Procedures Procedure Name Priority Date/Time Associated Diagnosis Comments CHEMISTRY-OUTSIDE Routine 12/01/2024 documented in this encounter Results * (ABNORMAL) CHEMISTRY-OUTSIDE (12/01/2024) Not all results display below - see scan for full detail OUTSIDE LAB (SEE SCANNED REPORT) Comment:SEE SCAN - PERIT CC/ DIFF, CBCD, TYPE AND SCREEN CREATININE OUTSIDE L AB (SEE SCANNED REPORT) EGFR OUTSIDE LA B (SEE SCANNED REPORT) POTASSIUM OUTSIDE LA B (SEE SCANNED REPORT) GLUCOSE OUTSIDE LA B (SEE SCANNED REPORT) HOURS FASTING OUTSID E LAB (SEE SCANNED REPORT) TRIGLYCERIDES-OUT SIDE LAB OUTSIDE LAB (SEE SCANNED REPORT) CHOLESTEROL-OUTSI DE LAB OUTSIDE LAB (SEE SCANNED REPORT) HDL-OUTSIDE LAB OUTS CONNOR LAB (SEE SCANNED REPORT) CHOL/HDL RATIO-OUTSIDE LAB OUTSIDE LA B (SEE SCANNED REPORT) LDL (CALCULATED)-OUTS CONNOR LAB OUTSIDE LAB (SEE SCANNED REPORT) LDL (DIRECT MEASURE)-OUTSIDE LAB OUTSIDE LAB (SEE SCANNED REPORT) HEMOGLOBIN, K2C-SLLFLBF LAB OUTSIDE LAB (SEE SCANNED REPORT) PHOSPHORUS-OUTSID E LAB OUTSIDE LAB (SEE SCANNED REPORT) PTH-OUTSIDE LAB OUTS CONNOR LAB (SEE SCANNED REPORT) MICROALBUMIN RATIO-OUTSIDE LAB OUTSIDE LA B (SEE SCANNED REPORT) PROTEIN, UA-OUTSIDE LAB OUTSIDE LAB (SEE SCANNED REPORT) HGB 6.4(A) 14.0 - 18.0 G/DL OUTSIDE LAB (SEE SCANNED REPORT) 12/01/2024 us Lamar [facility] Final Resu lt OUTSIDE LAB (SEE SCANNED REPORT) documented in this encounter Advance Directives Documents on File Type Date Recorded Patient Chairman And Ceo Expl anation Advance Directives and Living Will 12/11/2022 ADVANCE DIRECTIVE / LIVING WILL LIVING WILL Power of Property Economist 12/11/2022 POWER OF A TTORNEY * Full [...] Discussed due to patient's condition Care Teams Mixer Operator Hot Metal Relationship Specialty Start Date End Date Kristen Vences DO [address] [place] [address] PCP - General Family Medicine 05/19/24 documented as of this encounter
--- OUTSIDE RECORDS SUMMARY | 2024-12-04 16:49 | External Medical Summary | Summary of Care ---
Author Name Unknown Organization [facility] Address [address] [place] [address] Phone [phone] Care Team Providers Care Medical Reimbursement Specialist Name Role Phone Vangie Kristenlang Rubin DO Primary Care Provider [phone] Reason for Visit * Reason Onset Date Comments Advice 11/30/2024 Keyla Encounter Details Date Type Department Care Team (Late st Contact Info) Description 11/30/2024 Telephone Hematology/Oncology, [facility] [address] [place] [address] Keyla, Jennifer [facility] [address] [facility] [id number] Advice (Keyla ) Allergies No known active [...] mRNA, LNP-s, No Pre serve, 2-Dose Series ([employer]) 03/08/2021,02/15/2021 COVID-19, MRNA-LNP, PF, 50 M CG/0.5 [...] RN - 12/01/2024 3:24 PM EST Called [facility] lab- H/H 6.4/ 19.0. Patient will need 1 unit PRBC on . : can you please fax order? * Telephone Encounter - Josephine Murphy RN - 12/01/2024 1:51 PM EST Labs are being drawn now. * Telephone Encounter - Pari Cobian LPN - 11/30/2024 1:09 PM EST Patient to receive 1 unit prbc. Called [facility] blood bank. Spoke with Cornel. Spoke with Rosana in [place]. Spoke with Neema in [place]. Called [facility] central scheduling. Patient scheduled for 12/03/2024 at 09:00 am. Awaiting lab results before faxing orders. * Addendum Note - Abdoul Oliva RN - 11/30/2024 12:55 PM ESTAddended by: ABDOUL OLIVA on: 11/30/2024 12:55 PM Modules accepted: Orders * Telephone Encounter - Abdoul Oliva RN - 11/30/2024 12:49 PM EST Called patient back, he is going to [facility] for paracentesis tomorrow. Will fax [...] message to have an order sent to [facility] for a blood transfusion and orders for type and screen lab work so he can have that completed at [facility] tomorrow. Please contact Luis at [phone]. Thank you. * Telephone Encounter - Aspen De Santiago OSA - 11/30/2024 8:11 AM EST Patient calling asking if he can get an order sent over to [facility] for a blood transfusion. States he has been feeling very tired. documented in this encounter Plan of Treatment Upcoming Encounters Date Type Department Care Team (Late st Contact Info) Description 12/03/2024 7:05 AM EST Laboratory Lab Mobile Phlebotomy [facility] [address] [place], [place] [address] [facility] [address] [place], [place] [address] 12/10/2024 7:05 AM EST Laboratory Lab [facility]bot[facility] [address] [place], [place] [address] [facility] [address] [place], [place] [address] 12/17/2024 7:05 AM EST Laboratory Lab [facility]bot[facility] [address] [place], [place] [address] M[facility], [facility] [address] [place] [address] 12/24/2024 7:05 AM EST Laboratory Lab [facility]lebot[facility] [address] [place], [place] [address] M[facility], [facility] [address] [place], [place] [address] 12/31/2024 7:05 AM EST Laboratory Lab [facility] [address] [place] [address] Mv[facility], [facility] Draw [address] [facility] [address] 01/07/2025 7:05 AM EST Laboratory Lab [facility] Phlebot[facility] [address] [place] [address] M[facility], [facility] Draw [address] [facility] [address] 01/13/2025 2:00 PM EST Office Visit Hematology/Oncology [facility] [address] [facility] [place] [phone] Jennifer Ramires MD [address] [place] [address] 01/14/2025 7:05 AM EST Laboratory Lab Mobile Phlebotomy [facility] [address] [facility] [place], [place] [address] Mvmg, G[facility] Draw [address] [facility] [address] 01/21/2025 7:05 AM EST Laboratory Lab [facility] Phlebotomy [facility] [address] [facility] [address] Mvmg, G[facility] Draw [address] [facility] [address] 01/26/2025 3:15 PM EST Office Visit Urology, [facility] [address] [place] [address] Frank Peraza MD [address] [place] [address] 01/28/2025 7:05 AM EST Laboratory Lab Mobile Phlebotomy [facility] [address] [place] [address] Mvmg, Gml [facility] Draw [address] [place] [address] 02/04/2025 7:05 AM EST Laboratory Lab [facility]lebot[facility] [address] [place] [address] Mvmg, Gml [facility] Draw [address] [facility] [place] [address] 02/10/2025 3:00 PM EDT Office Visit Gastroenterology, [facility] [address] [place] [address] Lamar Tatum CRNP [address] [place] [address] 02/11/2025 7:05 AM EDT Laboratory Lab [facility] Phlebot[facility] [address] [place] [address] Mvmg, G[facility] Draw [address] [facility] [place] [address] 02/18/2025 7:05 AM EDT Laboratory Lab [facility]lebot[facility] [address] [place] [address] Mvmg, G[facility] Draw [address] [facility] [address] 02/25/2025 7:05 AM EDT Laboratory Lab [facility] Phlebot[facility] [address] [place] [address] Mvmg, [facility] Draw [address] [facility] [place] [address] 03/04/2025 7:05 AM EDT Laboratory Lab [facility] [address] [place] [address] Mvmg, Gml [facility] Draw [address] [facility] [place] [address] 03/11/2025 7:05 AM EDT Laboratory Lab [facility] Phlebotomy [facility] [address] [facility] [address] Mvmg, Gml [facility] Draw [address] [facility] [address] 03/18/2025 7:05 AM EDT Laboratory Lab [facility] Phlebot[facility] [address] [place] [address] Mvmg, Gml [facility] Draw [address] [facility] [address] 03/25/2025 7:05 AM EDT Laboratory Lab [facility] Phlebotomy [facility] [address] [place], [place] [address] Mvmg, Gml [facility] Draw [address] [facility] [address] 03/29/2025 2:45 PM EDT Office Visit Dermatology [facility] [address] [facility] [place], [place] [address] Francisco Watson MD [address] [facility] [place] [address] 04/01/2025 7:05 AM EDT Laboratory Lab [facility] Phlebot[facility] [address] [place] [address] Mvmg, G[facility] Draw [address] [place] [address] 04/08/2025 7:05 AM EDT Laboratory Lab [facility] Phlebotomy [facility] [address] [place] [address] Mvmg, Gml [facility] Draw [address] [facility] [place] [address] 04/15/2025 7:05 AM EDT Laboratory Lab Mobile Phlebotomy [facility] [address] [place] [address] Mvmg, Gml [facility] Draw [address] [place] [address] Scheduled Orders Name Type Priority Associated Diagnoses [...] Additional history exists CKD PHOS USE SMARTSET 22537 05/19/202505/02, 05/08/2024, 04/07/2024, Additional history exists Diabetic Foot Exam 05/19/2025 05/19/2024, 0 03/06/2023, 01/03/2022, Additional history exists Depression Screening 08/10/2025 08/10/2024 CKD HGB USE SMARTSET 07992 11/17/202511/17, 11/03/2024, 11/02/2024, Additional history exists Sigmoidoscopy [...] encounter Medical Devices Implanted Type Area Bulk Cooler Installer Device Identifier Shelf Expiration Date Model / Serial / Lot Clareon Iol Aspheric Hydrophobic Acrylic Iol Implanted:Qty: 1 on 04/23/2023 by Cody Gonzalez DO at [facility] Lens Left: Eye 11/12/2025 CNA0T0 / [id number] / Viatorr Tips Endoprosthesis 8-10 Mm X 8cm / 2cm Implanted:Qty: 1 on 10/07/2020 by Go Alvarado MD at [facility] Right: Abdomen 03/03/2023 [id number] / / [id number] Description:Viatorr TIPS End oprosthesis 8-10 mm x 8cm / 2cm, Manufactored by [employer] [email or web address] Syr Pf 2ml Embospheres 100-300 - [id number] Implanted:Qty: 1 on 04/18/2021 by Kevin Lim DO at [facility] Left: Abdomen [employer] [id number] 11/25/2023 S220GH / / [id number] Lipiodol Injection - [id number] Implanted:Qty: 1 on 03/28/2022 at [facility] [employer] 03/01/2023 [id number] 01-2 / / [id number] Syr Pf 2ml Embospheres 100-300 - [id number] Implanted:Qty: 1 on 03/28/2022 at [facility] [employer] [id number] 08/31/2024 S220GH / / [id number] -[id number] Clareon Iol Aspheric Hydrophobic Acrylic Iol Implanted:Qty: 1 on 04/02/2023 by Cody Gonzalez DO at [facility] Right: Eye [employer]AZMIN 11/12/2025 CNA0T0 / [id number] / Syr Pf 2ml Embospheres 100-300 - [id number] Implanted:Qty: 1 on 06/11/2024 at [facility] [employer] [id number] 01/02/2027 S220GH / / [id number] Cath Diag Cobra 2 [id number] - [id number] Implanted:Qty: 1 on 06/11/2024 at [facility] [employer] [id number] 10/06/2026 [id number] / / [id number] documented as of this encounter Visit Diagnoses Diagnosis Iron deficiency anemia due to chronic blood loss- Primary Iron deficiency anemia secondary to blood loss (chronic) documented in this encounter Advance Directives Documents on File Type Date Recorded Patient Soot Blower Expl anation Advance Directives and Living Will 12/11/2022 ADVANCE DIRECTIVE / LIVING WILL LIVING WILL Power of Inspector Material Disposition 12/11/2022 POWER OF A TTORNEY * Full [...] due to patient's condition Care Teams Medical Reimbursement Specialist Relationship Specialty Start Date End Date Kristen Vences DO [address] [place] [address] PCP - General Family Medicine 05/19/24 documented as of this encounter
--- OUTSIDE RECORDS SUMMARY | 2024-12-04 16:50 | External Medical Summary | Summary of Care ---
Author Name Unknown Organization [facility] Address [address] [place] [address] Phone [phone] Care Team Providers Care Teradata Solution Architect Name Role Phone Vangie Kristenlang Rubin DO Primary Care Provider [phone] Reason for Visit * Reason Onset Date Comments Advice 11/30/2024 Keyla Encounter Details Date Type Department Care Team (Late st Contact Info) Description 11/30/2024 Telephone Hematology/Oncology, [facility] [address] [place] [address] Keyla, Jennifer [facility]agon [facility] [address] Advice (Keyla ) Allergies No known active allergiesdocumented as of this encounter (statuses as of 11/30/2024) Medications OneTouch Verio In Vitro Strip (Glucose [...] nausea 90 Tablet 3 08/30/20 23 Active Lantus 100 UNIT/ML Subcutaneous Solution Inject 25 Units under the skin every evening. With dinner 3 Each 5 11/14/20 23 Active rifAXIMin 550 MG Oral Tablet [...] minute each unit 300 mL 100 03/17/20 Active Potassium Chloride Stephanie ER 20 MEQ Oral Tablet Extended Release 1 Tablet in the morning. 03/20/20 Active Finasteride 5 MG Oral Tablet (Proscar) [...] IN THE EVENING 60 Tablet 5 09/01/20 Active Additional Information Patient taking differently: Once daily, Reported on 11/26/2024 Furosemide 20 MG Oral Tablet (Lasix) 2 tabs by mouth once daily 60 Tablet 5 11/09/20 Active Lactulose 10 GM Oral Packet (Kristalose)Indica tions:Cirrhosis of liver without ascites, unspecified hepatic cirrhosis type (HCC) Take 1 Packet by mouth in the morning and 1 Packet before bedtime. Take one packet by mouth twice daily - titrate to 3 or more BMs/day.. 60 Each 12 11/16/20 Active DULoxetine HCl 30 MG Oral Capsule Delayed Release Particles (Cymbalta) Take 1 capsule by mouth in the morning 90 Capsule 2 11/16/20 Active Allopurinol 100 MG Oral Tablet (Zyloprim)Indicati ons:Gout of big toe TAKE 2 TABLETS BY MOUTH IN THE MORNING 180 Tablet 2 11/16/20 Active documented as of this encounter (statuses as of 11/30/2024) Active Problems Problem Noted Date Diagnosed Date [...] as of this encounter (statuses as of 11/30/2024) Resolved Problems Problem Noted Date Diagnosed Date Resolved Date Acute blood loss anemia 05/08/2024 06/ Hematuria, gross 12/19/2023 05/11/2024 Closed compression fracture [...] as of this encounter (statuses as of 11/30/2024) Immunizations Name Administration Dates Next Due COVID-19 mRNA, LNP-s, No Pre serve, 2-Dose Series ([employer]) 03/08/2021,02/15/2021 COVID-19, MRNA-LNP, PF, 50 M CG/0.5 [...] Entry Date Author No 05/08/2024 6:04 PM Guzman Huggins RN documented in this encounter Miscellaneous Notes * Addendum Note - Abdoul Oliva RN - 11/30/2024 12:55 PM ESTAddended by: ABDOUL OLIVA on: 11/30/2024 12:55 PM Modules accepted: Orders * Telephone Encounter - Abdoul Oliva RN - 11/30/2024 12:49 PM EST Called patient back, he is going to [facility] for paracentesis tomorrow. Will fax order for [...] message to have an order sent to [facility] for a blood transfusion and orders for type and screen lab work so he can have that completed at [facility] tomorrow. Please contact Luis at [phone]. Thank you. * Telephone Encounter - Aspen De Santiago OSA - 11/30/2024 8:11 AM EST Patient calling asking if he can get an order sent over to [facility] for a blood transfusion. States he has been feeling very tired. documented in this encounter Plan of Treatment Upcoming Encounters Date Type Department Care Team (Late st Contact Info) Description 12/03/2024 7:05 AM EST Laboratory Lab Mobile Phlebotomy [facility] [address] [place] [address] [address] [facility] Mobile Home Draw [address] [employer] [place] [address] 12/10/2024 7:05 AM EST Laboratory Lab Mobile Phlebotomy [facility] [address] [place] [address] M[facility]mg, G[facility] Mobile Home Draw [address] [place] [address] 12/17/2024 7:05 AM EST Laboratory Lab [facility]lebot[facility] [address] [place] [address] M[facility], [facility] Draw [address] [place] [address] 12/24/2024 7:05 AM EST Laboratory Lab [facility] Phlebotomy [facility] [address] [place] [address] M[facility], [facility] Draw [address] [place] [address] 12/31/2024 7:05 AM EST Laboratory Lab [facility] Phlebot[facility] [address] [place] [address] Mv[facility], G[facility] Draw [address] [place] [address] 01/07/2025 7:05 AM EST Laboratory Lab [facility] Phlebotomy [facility] [address] [place] [address] Mv[facility], Gml [facility] Home Draw [address] [place] [address] 01/13/2025 2:00 PM EST Office Visit Hematology/Oncology [facility] [place] 200 [facility] [place] [phone] Jennifer Ramires MD [address] [place] [address] 01/14/2025 7:05 AM EST Laboratory Lab [facility] Phlebotomy [facility] [address] [place] [address] M[facility], Gml [facility] Draw [address] [place] [address] 01/21/2025 7:05 AM EST Laboratory Lab [facility] Phlebotomy [facility] [address] [place] [address] Mvmg, Gml [facility] Draw [address] [place], [place] [address] 01/26/2025 3:15 PM EST Office Visit Urology, [facility] 132 [facility] [place], [place] [address] Frank Peraza MD [address] [place] [address] 01/28/2025 7:05 AM EST Laboratory Lab Mobile Phlebotomy [facility] [address] [employer] [place], [place] [address] Mvmg, Gml Mobile Home Draw [address] [facility] [place], [place] [address] 02/04/2025 7:05 AM EST Laboratory Lab Mobile Phlebotomy [facility] [address] [place] [address] Mvmg, Gml Mobile Home Draw [address] [facility] [place], [place] [address] 02/10/2025 3:00 PM EDT Office Visit Gastroenterology, [facility] 132 [facility] [place], [place] [address] Lamar Tatum CRNP [address] [place] [address] 02/11/2025 7:05 AM EDT Laboratory Lab Mobile Phlebotomy [facility] [address] [place], [place] [address] Mvmg, Gml Mobile Home Draw [address] [facility] [place] [address] 02/18/2025 7:05 AM EDT Laboratory Lab Mobile Phlebotomy [facility] [address] [place], [place] [address] Mvmg, Gml Mobile Home Draw [address] [facility] [place], [place] [address] 02/25/2025 7:05 AM EDT Laboratory Lab Mobile Phlebotomy [facility] [address] [place], [place] [address] Mvmg, Gml [facility] Home Draw [address] [place] [place] [address] 03/04/2025 7:05 AM EDT Laboratory Lab Mobile Phlebotomy [facility] [address] [place] [address] Mvmg, Gml [facility] Home Draw [address] [place] [address] 03/11/2025 7:05 AM EDT Laboratory Lab Mobile Phlebotomy [facility] [address] [place] [address] Mvmg, Gml Mobile Home Draw [address] [facility] [place] [address] 03/18/2025 7:05 AM EDT Laboratory Lab Mobile Phlebotomy [facility] [address] [place] [address] Mvmg, Gml Mobile Home Draw [address] [place] [address] 03/25/2025 7:05 AM EDT Laboratory Lab Mobile Phlebotomy [facility] [address] [place] [address] Mvmg, Gml Mobile Home Draw [address] [facility] [place] [address] 03/29/2025 2:45 PM EDT Office Visit Dermatology [facility] 200 [facility] [place] [address] Francisco Watson MD [address] [place] [address] 04/01/2025 7:05 AM EDT Laboratory Lab [facility] Phlebot[facility] [address] [place] [address] Mvmg, Gml [facility] Home Draw [address] [facility] [place] [address] 04/08/2025 7:05 AM EDT Laboratory Lab Mobile Phlebotomy [facility] [address] [place] [address] Mvmg, Gml [facility] Home Draw [address] [place] [address] 04/15/2025 7:05 AM EDT Laboratory Lab Mobile Phlebotomy [facility] [address] [place] [address] M[facility], Gml Mobile Home Draw [address] [place] [address] [address] Scheduled Orders Name Type Priority Associated Diagnoses [...] Colorectal Cancer Screening 08/09/2024 HbA1c 12/31/2024 06/30/2024, 050 06/2024, 11/27/2023, Additional history exists GFR 04/12/2025 10/13/2024, 07/02, 06/30/2024, Additional history exists Albumin/Creatinine Ratio 05/19/202505/19/2 024, 07/12/2023, 10/01/2022, Additional history exists CKD PHOS USE SMARTSET 92349 05/19/202505/02, 05/08/2024, 04/07/2024, Additional history exists Diabetic Foot Exam 05/19/2025 05/19/2024, 0 03/06/2023, 01/03/2022, Additional history exists Depression Screening 08/10/2025 08/10/2024 CKD HGB USE SMARTSET 97101 11/17/202511/17, 11/03/2024, 11/02/2024, Additional history exists Sigmoidoscopy [...] this encounter Medical Devices Implanted Type Area Test Car Driver Device Identifier Shelf Expiration Date Model / Serial / Lot Clareon Iol Aspheric Hydrophobic Acrylic Iol Implanted:Qty: 1 on 04/23/2023 by Cody Gonzalez DO at [facility] Lens Left: Eye 11/12/2025 CNA0T0 / [id number] / Viatorr Tips Endoprosthesis 8-10 Mm X 8cm / 2cm Implanted:Qty: 1 on 10/07/2020 by Go Alvarado MD at [facility] Right: Abdomen 03/03/2023 [id number] / / [id number] Description:Viatorr TIPS End oprosthesis 8-10 mm x 8cm / 2cm, Manufactored by [employer] [email or web address] Syr Pf 2ml Embospheres 100-300 - [id number] Implanted:Qty: 1 on 04/18/2021 by Kevin Lim DO at OR [facility] Left: Abdomen [employer] [id number] 11/25/2023 S220GH / / [id number] Lipiodol Injection - [id number] Implanted:Qty: 1 on 03/28/2022 at [facility] [employer] 03/01/2023 12509-43 01-2 / / [id number] Syr Pf 2ml Embospheres 100-300 - [id number] Implanted:Qty: 1 on 03/28/2022 at [facility] [employer] [id number] 08/31/2024 S220GH / / [id number] -5 Clareon Iol Aspheric Hydrophobic Acrylic Iol Implanted:Qty: 1 on 04/02/2023 by Cody Gonzalez DO at [facility] Right: Eye JAZMIN 11/12/2025 CNA0T0 / [id number] / Syr Pf 2ml Embospheres 100-300 - [id number] Implanted:Qty: 1 on 06/11/2024 at [facility] [employer] [id number] 01/02/2027 S220GH / / [id number] -5 Cath Diag Cobra 2 [id number] - [id number] Implanted:Qty: 1 on 06/11/2024 at [facility] [employer] [id number] 10/06/2026 [id number] / / [id number] documented as of this encounter Visit Diagnoses Diagnosis Iron deficiency anemia due to chronic blood loss- Primary Iron deficiency anemia secondary to blood loss (chronic) documented in this encounter Advance Directives Documents on File Type Date Recorded Patient Order Entry Administrator Expl anation Advance Directives and Living Will 12/11/2022 ADVANCE DIRECTIVE / LIVING WILL LIVING WILL Power of Lifter Driver 12/11/2022 POWER OF A TTORNEY * Full [...] Discussed due to patient's condition Care Teams Teradata Solution Architect Relationship Specialty Start Date End Date Kristen Vences DO [address] [address] [address] PCP - General Family Medicine 05/19/24 documented as of this encounter
--- OUTSIDE RECORDS SUMMARY | 2024-12-04 16:50 | External Medical Summary | Summary of Care ---
Author Name Unknown Organization [facility] Address [address] [place] [address] Phone [phone] Care Team Providers Care Casting Assistant Name Role Phone Vangie Kristenlang Rubin DO Primary Care Provider [phone] Reason for Visit * Reason Onset Date Comments Advice 11/30/2024 Keyla Encounter Details Date Type Department Care Team (Late st Contact Info) Description 11/30/2024 Telephone Hematology/Oncology, [facility] [address] [place] [address] Keyla, Jennifer Aragon MD [address] [facility] [address] Advice (Keyla ) Allergies No known active [...] mRNA, LNP-s, No Pre serve, 2-Dose Series (FirmPlay) 03/08/2021,02/15/2021 COVID-19, MRNA-LNP, PF, 50 M CG/0.5 mL, 12 YRS AND ABOVE, IM (MODERNA-Spikevax) 10/18/2023 HepA Inact/HepB Recomb>=18yrs old 12/04/2019,04/2019,05/20/2019 11/19/2019 PPD 06/18/2017, 3,01/09/2012,06/2011 Pneumococcal Conjugate Vacc, 13 Valent (Prevnar) 05/01/2017 Pneumococcal Polysaccharide PPV23 (Pneumovax) 09/14/2022,08/28/2022,10/25/2015,07/02 Season Influenza, Quad, PF, Adjuvanted, 65+ Yrs, IM (FLUAD) 10/07/2020(Deferred: Patient Refused - pt says he already had his shot last month at [facility] and [place] [...] Patient to receive 1 unit prbc. Called [facility] blood bank. Spoke with Cornel. Spoke with Rosana in [place]. Spoke with Neema in . Called [facility] central scheduling. Patient scheduled for 12/03/2024 at 09:00 am. Awaiting lab results before faxing orders. * Addendum Note - Abdoul Oliva RN - 11/30/2024 12:55 PM ESTAddended by: ABDOUL OLIVA on: 11/30/2024 12:55 PM Modules accepted: Orders * Telephone Encounter - Abdoul Oliva RN - 11/30/2024 12:49 PM EST Called patient back, he is going to [facility] for paracentesis tomorrow. Will fax order for [...] later morning/early afternoon. TT sent to Inga Ventura in [place], she is able to print the orders from her computer. * Telephone Encounter - Bre Alexander OSA - 11/30/2024 12:36 PM EST Patient called to follow up on his previous message to have an order sent to [facility] for a blood transfusion and orders for type and screen lab work so he can have that completed at [facility] tomorrow. Please contact Luis at [phone]. Thank you. * Telephone Encounter - Aspen De Santiago OSA - 11/30/2024 8:11 AM EST Patient calling asking if he can get an order sent over to [facility] for a blood transfusion. States he has been feeling very tired. documented in this encounter Plan of Treatment Upcoming Encounters Date Type Department Care Team (Late st Contact Info) Description 12/03/2024 7:05 AM EST Laboratory Lab [facility] [address] [place] [address] [facility] [address] [place] [address] 12/10/2024 7:05 AM EST Laboratory [facility] [address] [place] [address] [facility] [address] [place] [address] 12/17/2024 7:05 AM EST Laboratory [facility] [address] [place] [address] [facility] [address] [place] [address] 12/24/2024 7:05 AM EST Laboratory [facility] [address] [place] [address] [facility] [address] [place] [address] 12/31/2024 7:05 AM EST Laboratory [facility] [address] [place] [address] [facility] [address] [place] [address] 01/07/2025 7:05 AM EST Laboratory [facility] [address] [place] [address] [facility] [address] [place] [address] 01/13/2025 2:00 PM EST Office Visit Hematology/Oncology [facility] [address] [place] [address] Jennifer Ramires MD [address] [place] [address] 01/14/2025 7:05 AM EST Laboratory Lab [facility] [address] [employer] [facility] [place], [place] [address] M[facility], [facility] Draw [address] [facility], [place] [address] 01/21/2025 7:05 AM EST Laboratory Lab [facility] Ph[facility]bot[facility] [address] [facility], [place] [address] M[facility], [facility] Draw [address] [facility], [place] [address] 01/26/2025 3:15 PM EST Office Visit Urology, [facility] [address] [place] [address] Frank Peraza MD [address] [place] [address] 01/28/2025 7:05 AM EST Laboratory Lab [facility] Phlebot[facility] [address] [facility], [place] [address] Mv[facility], G[facility] Draw [address] [facility], [place] [address] 02/04/2025 7:05 AM EST Laboratory Lab [facility]lebot[facility] [address] [facility], [place] [address] M[facility], [facility] Draw [address] [facility] [place] [address] 02/10/2025 3:00 PM EDT Office Visit Gastroenterology, [facility] 132 [facility] [place] [address] Lamar Tatum CRNP 132 [facility] [place] [address] 02/11/2025 7:05 AM EDT Laboratory Lab [facility] Ph[facility]bot[facility] [address] [facility], [place] [address] M[facility], [facility] Draw [address] [facility] [place] [address] 02/18/2025 7:05 AM EDT Laboratory Lab [facility] Phlebot[facility] [address] [place] [address] [facility], [facility] [address] [facility] [place] [address] 02/25/2025 7:05 AM EDT Laboratory Lab [facility] [address] [place] [address] M[facility], [facility] [address] [facility] [place] [address] 03/04/2025 7:05 AM EDT Laboratory Lab [facility] [address] [place] [address] Mv[facility], [facility] [address] [facility] [place] [address] 03/11/2025 7:05 AM EDT Laboratory Lab [facility] [address] [place] [address] M[facility], [facility] [address] [facility] [place] [address] 03/18/2025 7:05 AM EDT Laboratory Lab [facility] [address] [facility] [place] [address] M[facility], [facility] [address] [facility] [place] [address] 03/25/2025 7:05 AM EDT Laboratory Lab [facility] [address] [place] [address] M[facility], [facility] [address] [facility] [place] [address] 03/29/2025 2:45 PM EDT Office Visit Dermatology [facility] [address] [place] [address] Francisco Watson MD 200 [facility] [place] [address] 04/01/2025 7:05 AM EDT Laboratory Lab [facility] [address] [place] [address] M[facility], [facility] [address] [place] [address] 04/08/2025 7:05 AM EDT Laboratory Lab [facility] [address] [place] [address] M[facility], [facility] [address] [place] [address] 04/15/2025 7:05 AM EDT Laboratory Lab Mobile Phlebot[facility] [address] [place] [address] Mv[facility], [facility] [address] [place] [address] Scheduled Orders Name Type Priority Associated Diagnoses [...] Colorectal Cancer Screening 08/09/2024 HbA1c 12/31/2024 06/30/2024, 05/0 06/2024, 11/27/2023, Additional history exists GFR 04/12/2025 10/13/2024, 07/02, 06/30/2024, Additional history exists Albumin/Creatinine Ratio 05/19/2025 024, 07/12/2023, 10/01/2022, Additional history exists CKD PHOS USE SMARTSET 97548 05/19/202505/02, 05/08/2024, 04/07/2024, Additional history exists Diabetic Foot Exam 05/19/2025 05/19/2024, 0 03/06/2023, 01/03/2022, Additional history exists Depression Screening 08/10/2025 08/10/2024 CKD HGB USE SMARTSET 17324 11/17/202511/17, 11/03/2024, 11/02/2024, Additional history exists Sigmoidoscopy [...] this encounter Medical Devices Implanted Type Area Card Hand Device Identifier Shelf Expiration Date Model / Serial / Lot Clareon Iol Aspheric Hydrophobic Acrylic Iol Implanted:Qty: 1 on 04/23/2023 by Cody Gonzalez DO at [facility] Lens Left: Eye 11/12/2025 CNA0T0 / [id number] / Viatorr Tips Endoprosthesis 8-10 Mm X 8cm / 2cm Implanted:Qty: 1 on 10/07/2020 by Go Alvarado MD at [facility] Right: Abdomen 03/03/2023 [id number] / / [id number] Description:Viatorr TIPS End oprosthesis 8-10 mm x 8cm / 2cm, Manufactored by [employer] [email or web address] Syr Pf 2ml Embospheres 100-300 - [id number] Implanted:Qty: 1 on 04/18/2021 by Kevin Lim DO at [facility] Left: Abdomen [employer] [id number] 11/25/2023 S220GH / / [id number] Lipiodol Injection - [id number] Implanted:Qty: 1 on 03/28/2022 at [facility] [employer] 03/01/2023 [id number] 01-2 / / [id number] Syr Pf 2ml Embospheres 100-300 - [id number] Implanted:Qty: 1 on 03/28/2022 at [facility] [employer] [id number] 08/31/2024 S220GH / / [id number] -[id number] Clareon Iol Aspheric Hydrophobic Acrylic Iol Implanted:Qty: 1 on 04/02/2023 by Cody Gonzalez DO at [facility] Right: Eye JAZMIN 11/12/2025 CNA0T0 / [id number] / Syr Pf 2ml Embospheres 100-300 - [id number] Implanted:Qty: 1 on 06/11/2024 at [facility] [employer] [id number] 01/02/2027 S220GH / / [id number] -5 Cath Pradeep [place] 2 [id number] - [id number] Implanted:Qty: 1 on 06/11/2024 at [facility] [employer] [id number] 10/06/2026 [id number] / / [id number] documented as of this encounter Visit Diagnoses Diagnosis Iron deficiency anemia due to chronic blood loss- Primary Iron deficiency anemia secondary to blood loss (chronic) documented in this encounter Advance Directives Documents on File Type Date Recorded Patient Planner Intern Expl anation Advance Directives and Living Will 12/11/2022 ADVANCE DIRECTIVE / LIVING WILL LIVING WILL Power of Pumper Helper 12/11/2022 POWER OF A TTORNEY * [...] Discussed due to patient's condition Care Teams Casting Assistant Relationship Specialty Start Date End Date Kristen Vences DO [address] [place] [address] PCP - General Family Medicine 05/19/24 documented as of this encounter
--- OUTSIDE RECORDS SUMMARY | 2024-12-04 16:50 | External Medical Summary | Summary of Care ---
Author Name Unknown Organization [facility] Address [address] [place] [address] Phone [phone] Care Team Providers Care Circuit Recorder Name Role Phone Vangie Kritsenlang Rubin DO Primary Care Provider [phone] Reason for Visit * Reason Onset Date Comments Advice 11/30/2024 Keyla Encounter Details Date Type Department Care Team (Late st Contact Info) Description 11/30/2024 Telephone Hematology/Oncology, [facility] [address] [place] [address] Keyla, Jennifer Aragon MD 200 [facility] [address] Advice (Keyla ) Allergies No known active [...] mRNA, LNP-s, No Pre serve, 2-Dose Series ([employer]) 03/08/2021,02/15/2021 COVID-19, MRNA-LNP, PF, 50 M CG/0.5 [...] Called patient back, he is going to [facility] for paracentesis tomorrow. Will fax order for CBCD/Type and screen for him to have done tomorrow while he is there. - please schedule patient for tentative blood transfusion on 12/03, pt can go anytime. This will be dependent on the results of his lab work from 12/01 but we won't have the results until morning of1/2. Advise scheduling later morning/early afternoon. * Telephone Encounter - Bre Alexander OSA - 11/30/2024 12:36 PM EST Patient called to follow up on his previous message to have an order sent to [facility] for a blood transfusion and orders for type and screen lab work so he can have that completed at [facility] tomorrow. Please contact Luis at [phone]. Thank you. * Telephone Encounter - Aspen [...] EST Laboratory Lab Mobile Phlebotomy [facility] [address] [facility] [place], [place] [address] Mvmg, Gml Mobile Home Draw [address] [facility] [place], [place] [address] 12/10/2024 7:05 AM EST Laboratory Lab [facility] Phlebot[facility] [address] [facility] [place], [place] [address] Mvmg, [facility] Draw [address] [place], [place] [address] 12/17/2024 7:05 AM EST Laboratory Lab [facility] [address] [place], [place] [address] Mv[facility], [facility] Draw [address] [place] [address] [place], [place] [address] 12/24/2024 7:05 AM EST Laboratory Lab [facility] [address] [facility] [place], [place] [address] Mvmg, Gml [facility] Home Draw [address] [place] [address] 12/31/2024 7:05 AM EST Laboratory Lab [facility]bot[facility] [address] [place], [place] [address] Mvmg, [facility] Draw [address] [facility] [place] [address] 01/07/2025 7:05 AM EST Laboratory Lab [facility] [address] [place], [place] [address] Mvmg, [facility] Draw [address] [facility] [place], [place] [address] 01/13/2025 2:00 PM EST Office Visit Hematology/Oncology [facility] 200 [facility], [place] [id number] Jennifer Ramires MD 200 [facility], [place] [address] 01/14/2025 7:05 AM EST Laboratory Lab [facility]lebot[facility] [address] [facility] [place], [place] [address] Mvmg, Gml [facility] Draw [address] [facility] [place], [place] [address] 01/21/2025 7:05 AM EST Laboratory Lab [facility] [address] [facility] [place], [place] [address] Mvmg, [facility]ml [facility] Draw [address] [facility] [place], [place] [address] 01/26/2025 3:15 PM EST Office Visit Urology, [facility] [address] [place] [address] Frank Peraza MD [address] [place] [address] 01/28/2025 7:05 AM EST Laboratory Lab [facility]lebot[facility] [address] [place], [place] [address] M[facility]mg, Gml [facility] Draw [address] [place] [address] 02/04/2025 7:05 AM EST Laboratory Lab [facility]bot[facility] [address] [place], [place] [address] M[facility], Gml [facility] Home Draw [address] [facility] [place] [address] 02/10/2025 3:00 PM EDT Office Visit Gastroenterology, [facility] [address] [place] [address] Lamar Tatum CRNP [address] [place] [address] 02/11/2025 7:05 AM EDT Laboratory Lab Mobile Phlebot[facility] [address] [place] [address] Mv[facility], Gml [facility] Draw [address] [facility] [place] [address] 02/18/2025 7:05 AM EDT Laboratory Lab Mobile Phlebotomy [facility] [address] [place] [place], [place] [address] Mvmg, Gml Mobile Home Draw [address] [facility] [place] [address] 02/25/2025 7:05 AM EDT Laboratory Lab Mobile Phlebotomy [facility] [address] [place] [address] Mvmg, Gml Mobile Home Draw [address] [facility] [place] [address] 03/04/2025 7:05 AM EDT Laboratory Lab Mobile Phlebotomy [facility] [address] [place] [address] Mvmg, Gml Mobile Home Draw [address] [facility] [place] [address] 03/11/2025 7:05 AM EDT Laboratory Lab Mobile Phlebotomy [facility] [address] [place] [address] Mvmg, Gml Mobile Home Draw [address] [place] [address] 03/18/2025 7:05 AM EDT Laboratory Lab Mobile Phlebotomy [facility] [address] [place], [place] [address] Mvmg, Gml Mobile Home Draw [address] [place], [place] [address] 03/25/2025 7:05 AM EDT Laboratory Lab Mobile Phlebotomy [facility] [address] [place], [place] [address] Mvmg, Gml Mobile Home Draw [address] [place], [place] [address] 03/29/2025 2:45 PM EDT [facility] [address] [facility] [address] [place], [place] [address] Francisco Watson MD [address] [facility] [address] [place], [place] [address] 04/01/2025 7:05 AM EDT Laboratory Lab Mobile Phlebotomy [facility] [address] [place], [place] [address] Mvmg, Gml Mobile Home Draw [address] [place], [place] [address] 04/08/2025 7:05 AM EDT Laboratory Lab Mobile Phlebotomy [facility] [address] [place], [place] [address] Mvmg, Gml Mobile Home Draw [address] [place] [employer], [place] [address] 04/15/2025 7:05 AM EDT Laboratory Lab Mobile Phlebotomy [facility] [address] [place] [address] Mvmg, Gml Mobile Home Draw [address] [place], [place] [address] Scheduled Procedures Name Priority Associated Diagnoses Date/Ti [...] Additional history exists CKD PHOS USE SMARTSET 33274 05/19/202505/02, 05/08/2024, 04/07/2024, Additional history exists Diabetic Foot Exam 05/19/2025 05/19/2024, 0 03/06/2023, 01/03/2022, Additional history exists Depression Screening 08/10/2025 08/10/2024 CKD HGB USE SMARTSET 17448 11/17/202511/17, 11/03/2024, 11/02/2024, Additional history exists Sigmoidoscopy [...] this encounter Medical Devices Implanted Type Area Loan Operations Specialist Device Identifier Shelf Expiration Date Model / Serial / Lot Clareon Iol Aspheric Hydrophobic Acrylic Iol Implanted:Qty: 1 on 04/23/2023 by Cody Gonzalez DO at [facility] Lens Left: Eye 11/12/2025 CNA0T0 / [id number] / Viatorr Tips Endoprosthesis 8-10 Mm X 8cm / 2cm Implanted:Qty: 1 on 10/07/2020 by Go Alvarado MD at [facility] Right: Abdomen 03/03/2023 [id number] / / [id number] Description:Viatorr TIPS End oprosthesis 8-10 mm x 8cm / 2cm, Manufactored by [employer] [email or web address] Syr Pf 2ml Embospheres 100-300 - [id number] Implanted:Qty: 1 on 04/18/2021 by Kevin Lim DO at [facility] Left: Abdomen [employer] [id number] 11/25/2023 S220GH / / [id number] Lipiodol Injection - [id number] Implanted:Qty: 1 on 03/28/2022 at [facility] [employer] 03/01/2023 [id number] 01-2 / / [id number] Syr Pf 2ml Embospheres 100-300 - [id number] Implanted:Qty: 1 on 03/28/2022 at [facility] [employer] [id number] 08/31/2024 S220GH / / [id number] -[id number] Clareon Iol Aspheric Hydrophobic Acrylic Iol Implanted:Qty: 1 on 04/02/2023 by Cody Gonzalez DO at [facility] Right: Eye JAZMIN 11/12/2025 CNA0T0 / [id number] / Syr Pf 2ml Embospheres 100-300 - [id number] Implanted:Qty: 1 on 06/11/2024 at [facility] [employer] [id number] 01/02/2027 S220 / / [id number] -5 Cath Diag Cobra 2 [id number] - [id number] Implanted:Qty: 1 on 06/11/2024 at [facility] [employer] [id number] 10/06/2026 [id number] / / [id number] documented as of this encounter Advance Directives Documents on File Type Date Recorded Patient Global Account Executive Expl anation Advance Directives and Living Will 12/11/2022 ADVANCE DIRECTIVE / LIVING WILL LIVING WILL Power of Veneer Measurer 12/11/2022 POWER OF A TTORNEY * Full [...] Discussed due to patient's condition Care Teams Circuit Recorder Relationship Specialty Start Date End Date Kristen Vences DO [address] [place] [address] PCP - General Family Medicine 05/19/24 documented as of this encounter
--- OUTSIDE RECORDS SUMMARY | 2024-12-04 16:50 | External Medical Summary | Summary of Care ---
Author Name Unknown Organization [facility] Address [address] [place] [address] Phone [phone] Care Team Providers Care Water Treatment Technician Name Role Phone Vangie Kristenlang Rubin DO Primary Care Provider [phone] Reason for Visit * Reason Onset Date Comments Advice 11/30/2024 Keyla Encounter Details Date Type Department Care Team (Late st Contact Info) Description 11/30/2024 Telephone Hematology/Oncology, [facility] [address] [place] [address] Keyla, Jennifer Aragon MD [address] [facility] [id number] Advice (Keyla ) Allergies No known active [...] mRNA, LNP-s, No Pre serve, 2-Dose Series (Hookit) 03/08/2021,02/15/2021 COVID-19, MRNA-LNP, PF, 50 M CG/0.5 mL, 12 YRS AND ABOVE, IM (MODERNA-Spikevax) 10/18/2023 HepA Inact/HepB Recomb>=18yrs old 12/04/2019,04/2019,05/20/2019 11/19/2019 PPD 06/18/2017, 3,01/09/2012,06/2011 Pneumococcal Conjugate Vacc, 13 Valent (Prevnar) 05/01/2017 Pneumococcal Polysaccharide PPV23 (Pneumovax) 09/14/2022,08/28/2022,10/25/2015,07/02 Season Influenza, Quad, PF, Adjuvanted, 65+ Yrs, IM (FLUAD) 10/07/2020(Deferred: Patient Refused - pt says he already had his shot last month at [facility] made aware) [...] Patient to receive 1 unit prbc. Called [facility] blood bank. Spoke with Cornel. Spoke with Rosana in [place]. Spoke with Neema in . Called [facility] central scheduling. Patient scheduled for 12/03/2024 at 09:00 am. Awaiting lab results before faxing orders. * Addendum Note - Abdoul Oliva RN - 11/30/2024 12:55 PM ESTAddended by: ABDOUL OLIVA on: 11/30/2024 12:55 PM Modules accepted: Orders * Telephone Encounter - Abdoul Oliva RN - 11/30/2024 12:49 PM EST Called patient back, he is going to [facility] for paracentesis tomorrow. Will [...] afternoon. TT sent to Inga Whitehead in , she is able to print the orders from her computer. * Telephone Encounter - Bre Alexander OSA - 11/30/2024 12:36 PM EST Patient called to follow up on his previous message to have an order sent to [facility] for a blood transfusion and orders for type and screen lab work so he can have that completed at [facility] tomorrow. Please contact Luis at [phone]. Thank you. * Telephone Encounter - Aspen De Santiago OSA - 11/30/2024 8:11 AM EST Patient calling asking if he can get an order sent over to [facility] for a blood transfusion. States he has been feeling very tired. documented in this encounter Plan of Treatment Upcoming Encounters Date Type Department Care Team (Late st Contact Info) Description 12/03/2024 7:05 AM EST Laboratory Lab Mobile Phlebotomy [facility] [address] [employer] [address] [place] [address] M[facility], [facility] [address] [place] [address] 12/10/2024 7:05 AM EST Laboratory Lab [facility] Phlebotomy [facility] [address] [place] [address] Mvmg, [facility] Draw [address] [place] [address] 12/17/2024 7:05 AM EST Laboratory Lab [facility] Phlebot[facility] [address] [place] [address] Mvmg, [facility] Draw [address] [place] [address] 12/24/2024 7:05 AM EST Laboratory Lab [facility] Phlebotomy [facility] [address] [place] [address] Mvmg, [facility] Draw [address] [place] [address] 12/31/2024 7:05 AM EST Laboratory Lab Mobile Phlebotomy [facility] [address] [place] [address] Mvmg, [facility] Draw [address] [place] [address] 01/07/2025 7:05 AM EST Laboratory Lab Mobile Phlebotomy [facility] [address] [place] [address] Mvmg, G[facility] Draw [address] [place] [address] 01/13/2025 2:00 PM EST Office Visit Hematology/Oncology [facility] [address] [place] [phone] Jennifer Ramires MD [address] [place] [address] 01/14/2025 7:05 AM EST Laboratory Lab Mobile Phlebotomy [facility] [address] [facility] [place], [place] [address] Mvmg, Gml [facility] Home Draw [address] [facility] [place], [place] [address] 01/21/2025 7:05 AM EST Laboratory Lab Mobile Phlebotomy [facility] [address] [facility] [place], [place] [address] Mvmg, Gml Mobile Home Draw [address] [facility], [place] [address] 01/26/2025 3:15 PM EST Office Visit [facility]rology, [facility] [address] Frank Peraza MD 27 [facility] [place] [address] 01/28/2025 7:05 AM EST Laboratory Lab Mobile Phlebotomy [facility] [address] [facility], [place] [address] Mvmg, Gml Mobile Home Draw [address] [facility], [place] [address] 02/04/2025 7:05 AM EST Laboratory Lab Mobile Phlebotomy [facility] [address] [facility], [place] [address] Mvmg, Gml Mobile Home Draw [address] [facility], [place] [address] 02/10/2025 3:00 PM EDT Office Visit Gastroenterology, [facility] 132 [facility] [place] [address] Lamar Tatum CRNP 132 [facility] [place] [address] 02/11/2025 7:05 AM EDT Laboratory Lab Mobile Phlebotomy [facility] [address] [facility] [place], [place] [address] Mvmg, Gml [facility] Draw [address] [place] [address] 02/18/2025 7:05 AM EDT Laboratory Lab Mobile Phlebotomy [facility] [address] [place] [address] Mvmg, Gml Mobile Home Draw [address] [facility] [address] [place] [address] 02/25/2025 7:05 AM EDT Laboratory Lab Mobile Phlebotomy [facility] [address] [place] [address] Mvmg, Gml Mobile Home Draw [address] [facility] [address] [place] [address] 03/04/2025 7:05 AM EDT Laboratory Lab Mobile Phlebotomy [facility] [address] [place] [address] Mvmg, Gml Mobile Home Draw [address] [place] [address] 03/11/2025 7:05 AM EDT Laboratory Lab Mobile Phlebotomy [facility] [address] [place] [address] Mvmg, Gml Mobile Home Draw [address] [facility] [address] [place] [address] 03/18/2025 7:05 AM EDT Laboratory Lab Mobile Phlebotomy [facility] [address] [place] [address] Mvmg, Gml Mobile Home Draw [address] [facility] [address] [place] [address] 03/25/2025 7:05 AM EDT Laboratory Lab Mobile Phlebotomy [facility] [address] [place] [address] Mvmg, Gml Mobile Home Draw [address] [facility] [address] [place] [address] 03/29/2025 2:45 PM EDT Office Visit Dermatology [facility] [place] [address] [place] [address] Francisco Watson MD [address] [place] [address] 04/01/2025 7:05 AM EDT Laboratory Lab Mobile Phlebotomy [facility] [address] [place], [place] [address] Mvmg, Gml [facility] Draw [address] [place], [place] [address] 04/08/2025 7:05 AM EDT Laboratory Lab Mobile Phlebotomy [facility] [address] [place], [place] [address] Mvmg, Gml Mobile Home Draw [address] [place] [address] 04/15/2025 7:05 AM EDT Laboratory Lab Mobile Phlebotomy [facility] [address] [place], [place] [address] Mvmg, Gml Mobile Home Draw [address] [facility] [address] [place], [place] [address] Scheduled Orders Name Type Priority Associated Diagnoses [...] Additional history exists CKD PHOS USE SMARTSET 97534 05/19/202505/02, 05/08/2024, 04/07/2024, Additional history exists Diabetic Foot Exam 05/19/2025 05/19/2024, 0 03/06/2023, 01/03/2022, Additional history exists Depression Screening 08/10/2025 08/10/2024 CKD HGB USE SMARTSET 93371 11/17/202511/17, 11/03/2024, 11/02/2024, Additional history exists Sigmoidoscopy [...] this encounter Medical Devices Implanted Type Area Food Processing Plant Manager Device Identifier Shelf Expiration Date Model / Serial / Lot Clareon Iol Aspheric Hydrophobic Acrylic Iol Implanted:Qty: 1 on 04/23/2023 by Cody Gonzalez DO at OR [facility] Lens Left: Eye 11/12/2025 CNA0T0 / [id number] / Viatorr Tips Endoprosthesis 8-10 Mm X 8cm / 2cm Implanted:Qty: 1 on 10/07/2020 by Go Alvarado MD at [facility] Right: Abdomen 03/03/2023 [id number] / / [id number] Description:Viatorr TIPS End oprosthesis 8-10 mm x 8cm / 2cm, Manufactored by [employer] [email or web address] Syr Pf 2ml Embospheres 100-300 - [id number] Implanted:Qty: 1 on 04/18/2021 by Kevin Lim DO at [facility] Left: Abdomen [employer] [id number] 11/25/2023 S220GH / / [id number] Lipiodol Injection - [id number] Implanted:Qty: 1 on 03/28/2022 at [facility] [employer] 03/01/2023 [id number] 01-2 / / [id number] Syr Pf 2ml Embospheres 100-300 - [id number] Implanted:Qty: 1 on 03/28/2022 at [facility] [employer] [id number] 08/31/2024 S220GH / / [id number] -5 Clareon Iol Aspheric Hydrophobic Acrylic Iol Implanted:Qty: 1 on 04/02/2023 by Cody Gonzalez DO at [facility] Right: Eye JAZMIN 11/12/2025 CNA0T0 / [id number] / Syr Pf 2ml Embospheres 100-300 - [id number] Implanted:Qty: 1 on 06/11/2024 at [facility] [employer] [id number] 01/02/2027 S220GH / / [id number] -5 Cath Pradeep [place] 2 [id number] - [id number] Implanted:Qty: 1 on 06/11/2024 at [facility] [employer] [id number] 10/06/2026 [id number] / / [id number] documented as of this encounter Visit Diagnoses Diagnosis Iron deficiency anemia due to chronic blood loss- Primary Iron deficiency anemia secondary to blood loss (chronic) documented in this encounter Advance Directives Documents on File Type Date Recorded Patient Reproducer Expl anation Advance Directives and Living Will 12/11/2022 ADVANCE DIRECTIVE / LIVING WILL LIVING WILL Power of Crop Insurance Claims Adjuster 12/11/2022 POWER OF A TTORNEY * Full [...] Discussed due to patient's condition Care Teams Water Treatment Technician Relationship Specialty Start Date End Date Kristen Vences DO [address] [place] [address] [address] PCP - General Family Medicine 05/19/24 documented as of this encounter
--- OUTSIDE RECORDS SUMMARY | 2024-12-04 16:50 | External Medical Summary | Summary of Care ---
Author Name Unknown Organization [facility] Address [address] [place] [address] Phone [phone] Care Team Providers Care Grain Mill Worker Name Role Phone Vangie Kristenlang Rubin DO Primary Care Provider [phone] Reason for Visit * Reason Onset Date Comments Advice 11/30/2024 Keyla Encounter Details Date Type Department Care Team (Late st Contact Info) Description 11/30/2024 Telephone Hematology/Oncology, [facility] [address] [place] [address] Keyla, Jennifer Aragon MD [address] [facility] [phone] Advice (Keyla ) Allergies No known active [...] mRNA, LNP-s, No Pre serve, 2-Dose Series ([facility]) 03/08/2021,02/15/2021 COVID-19, MRNA-LNP, PF, 50 M CG/0.5 [...] Patient to receive 1 unit prbc. Called [facility] blood bank. Spoke with Cornel. Spoke with Rosana in [place]. Spoke with Neema in [place]. Called [facility] central scheduling. Patient scheduled for 12/03/2024 at 09:00 am. Awaiting lab results before faxing orders. * Addendum Note - Abdoul Oliva RN - 11/30/2024 12:55 PM ESTAddended by: ABDOUL OLIVA on: 11/30/2024 12:55 PM Modules accepted: Orders * Telephone Encounter - Abdoul Oliva RN - 11/30/2024 12:49 PM EST Called patient back, he is going to [facility] for paracentesis tomorrow. Will fax order for [...] message to have an order sent to [facility] for a blood transfusion and orders for type and screen lab work so he can have that completed at [facility] tomorrow. Please contact Luis at [phone]. Thank you. * Telephone Encounter - Aspen [...] EST Laboratory Lab Mobile Phlebotomy [facility] [address] [place] [address] Mvmg, Gml Mobile Home Draw [address] [place] [address] 12/10/2024 7:05 AM EST Laboratory Lab Mobile Phlebotomy [facility] [address] [place] [address] Mvmg, Gml Mobile Home Draw [address] [place] [address] 12/17/2024 7:05 AM EST Laboratory Lab Mobile Phlebotomy [facility] [address] [place] [address] Mvmg, Gml Mobile Home Draw [address] [place] [address] 12/24/2024 7:05 AM EST Laboratory Lab Mobile Phlebotomy [facility] [address] [place] [address] Mvmg, Gml [facility] Home Draw [address] [place] [address] 12/31/2024 7:05 AM EST Laboratory Lab Mobile Phlebotomy [facility] [address] [place] [address] Mvmg, Gml Mobile Home Draw [address] [place] [address] 01/07/2025 7:05 AM EST Laboratory Lab Mobile Phlebotomy [facility] [address] [place] [address] Mvmg, Gml Mobile Home Draw [address] [place] [address] 01/13/2025 2:00 PM EST Office [facility] [place] 200 [facility] [place], [place] [phone] Jennifer Ramires MD [address] [place] [address] 01/14/2025 7:05 AM EST Laboratory Lab Mobile Phlebotomy [facility] [address] [place], [place] [address] Mvmg, Gml [facility] Draw [address] [place], [place] [address] 01/21/2025 7:05 AM EST Laboratory Lab Mobile Phlebotomy [facility] [address] [place], [place] [address] Mvmg, Gml Mobile Home Draw [address] [facility] [place], [place] [address] 01/26/2025 3:15 PM EST Office Visit Urology, [facility] 132 [facility] [place] [address] Frank Peraza MD [address] [place] [address] 01/28/2025 7:05 AM EST Laboratory Lab Mobile Phlebotomy [facility] [address] [place], [place] [address] Mvmg, Gml Mobile Home Draw [address] [employer] [place], [place] [address] 02/04/2025 7:05 AM EST Laboratory Lab Mobile Phlebotomy [facility] [address] [facility] [place], [place] [address] Mvmg, Gml Mobile Home Draw [address] [facility] [place], [place] [address] 02/10/2025 3:00 PM EDT Office Visit Gastroenterology, [facility] 132 [facility] [place] [address] Lamar Tatum CRNP 132 [facility] [place] [address] 02/11/2025 7:05 AM EDT Laboratory Lab Mobile Phlebotomy [facility] [address] [place] [address] Mvmg, Gml Mobile Home Draw [address] [place] [address] 02/18/2025 7:05 AM EDT Laboratory Lab Mobile Phlebotomy [facility] [address] [place] [address] Mvmg, Gml Mobile Home Draw [address] [employer] [place] [address] 02/25/2025 7:05 AM EDT Laboratory Lab Mobile Phlebotomy [facility] [address] [place] [address] Mvmg, Gml Mobile Home Draw [address] [employer] [place] [address] 03/04/2025 7:05 AM EDT Laboratory Lab Mobile Phlebotomy [facility] [address] [place] [address] Mvmg, Gml Mobile Home Draw [address] [employer] [place] [address] 03/11/2025 7:05 AM EDT Laboratory Lab Mobile Phlebotomy [facility] [address] [place] [address] Mvmg, Gml Mobile Home Draw [address] [employer] [place] [address] 03/18/2025 7:05 AM EDT Laboratory Lab Mobile Phlebotomy [facility] [address] [place] [address] Mvmg, Gml Mobile Home Draw [address] [employer] [place] [address] 03/25/2025 7:05 AM EDT Laboratory Lab Mobile Phlebotomy [facility] [address] [employer] [place] [address] Mvmg, Gml Mobile Home Draw [address] [employer] [place] [address] 03/29/2025 2:45 PM EDT Office Visit Dermatology [facility] [place] [address] [facility] [place], [place] [address] Francisco Watson MD 200 [facility] [place], [place] [address] 04/01/2025 7:05 AM EDT Laboratory Lab Mobile Phlebotomy [facility] [address] [place], [place] [address] Mvmg, Gml Mobile Home Draw [address] [place], [place] [address] 04/08/2025 7:05 AM EDT Laboratory Lab Mobile Phlebotomy [facility] [address] [place], [place] [address] Mvmg, Gml Mobile Home Draw [address] [place], [place] [address] 04/15/2025 7:05 AM EDT Laboratory Lab Mobile Phlebotomy [facility] [address] [place], [place] [address] Mvmg, Gml Mobile Home Draw [address] [place] [address] Scheduled Orders Name Type Priority Associated Diagnoses [...] Additional history exists CKD PHOS USE SMARTSET 82306 05/19/202505/02, 05/08/2024, 04/07/2024, Additional history exists Diabetic Foot Exam 05/19/2025 05/19/2024, 0 03/06/2023, 01/03/2022, Additional history exists Depression Screening 08/10/2025 08/10/2024 CKD HGB USE SMARTSET 18113 11/17/202511/17, 11/03/2024, 11/02/2024, Additional history exists Sigmoidoscopy [...] encounter Medical Devices Implanted Type Area Stock Letterer Device Identifier Shelf Expiration Date Model / Serial / Lot Clareon Iol Aspheric Hydrophobic Acrylic Iol Implanted:Qty: 1 on 04/23/2023 by Cody Gonzalez DO at OR [facility] Lens Left: Eye 11/12/2025 CNA0T0 / [id number] / Viatorr Tips Endoprosthesis 8-10 Mm X 8cm / 2cm Implanted:Qty: 1 on 10/07/2020 by Go Alvarado MD at [facility] Right: Abdomen 03/03/2023 [id number] / / [id number] Description:Viatorr TIPS End oprosthesis 8-10 mm x 8cm / 2cm, Manufactored by [employer] [email or web address] Syr Pf 2ml Embospheres 100-300 - [id number] Implanted:Qty: 1 on 04/18/2021 by Kevin Lim DO at OR [facility] Left: Abdomen [employer] [id number] 11/25/2023 S220GH / / [id number] Lipiodol Injection - [id number] Implanted:Qty: 1 on 03/28/2022 at [facility] [employer] 03/01/2023 31678-71 01-2 / / [id number] Syr Pf 2ml Embospheres 100-300 - [id number] Implanted:Qty: 1 on 03/28/2022 at [facility] [employer] [id number] 08/31/2024 S220GH / / [id number] -5 Clareon Iol Aspheric Hydrophobic Acrylic Iol Implanted:Qty: 1 on 04/02/2023 by Cody Gonzalez DO at OR [facility] Right: Eye JAZMIN 11/12/2025 CNA0T0 / [id number] / Syr Pf 2ml Embospheres 100-300 - [id number] Implanted:Qty: 1 on 06/11/2024 at [facility] [employer] [id number] 01/02/2027 S220GH / / [id number] -5 Cath Diag Cobra 2 [id number] - [id number] Implanted:Qty: 1 on 06/11/2024 at [facility] [employer] [id number] 10/06/2026 [id number] / / [id number] documented as of this encounter Visit Diagnoses Diagnosis Iron deficiency anemia due to chronic blood loss- Primary Iron deficiency anemia secondary to blood loss (chronic) documented in this encounter Advance Directives Documents on File Type Date Recorded Patient Financial Intern Expl anation Advance Directives and Living Will 12/11/2022 ADVANCE DIRECTIVE / LIVING WILL LIVING WILL Power of Doper Operator 12/11/2022 POWER OF A TTORNEY * [...] Discussed due to patient's condition Care Teams Grain Mill Worker Relationship Specialty Start Date End Date Kristen Vences DO [address] [place] [address] [address] PCP - General Family Medicine 05/19/24 documented as of this encounter
--- OUTSIDE RECORDS SUMMARY | 2024-12-04 16:50 | External Medical Summary | Summary of Care ---
Author Name Unknown Organization [facility] Address [address] [place] [address] Phone [phone] Care Team Providers Care Principal Administrative Clerk Name Role Phone Vangie Kristenlang Rubin DO Primary Care Provider [phone] Reason for Visit * Reason Onset Date Comments Advice 11/30/2024 Keyla Encounter Details Date Type Department Care Team (Late st Contact Info) Description 11/30/2024 Telephone Hematology/Oncology, [facility] [address] [place] [address] Keyla, Jennifer Aragon [facility] [address] [facility] [address] Advice (Keyla ) Allergies No known active [...] mRNA, LNP-s, No Pre serve, 2-Dose Series (DOCUSYS) 03/08/2021,02/15/2021 COVID-19, MRNA-LNP, PF, 50 M CG/0.5 [...] morning of12/03. Advise scheduling later morning/early afternoon. Please also fax Type and Screen / CBCD order to [facility] @ * Telephone Encounter - Bre Alexander OSA - 11/30/2024 12:36 PM EST Patient called to follow up on his previous message to have an order sent to [facility] for a blood transfusion and orders for type and screen lab work so he can have that completed at [facility] tomorrow. Please contact Luis at [phone]. Thank you. * Telephone Encounter - Aspen De Santiago OSA - 11/30/2024 8:11 AM EST Patient calling asking if he can get an order sent over to [facility] for a blood transfusion. States he has been feeling very tired. documented in this encounter Plan of Treatment Upcoming Encounters Date Type Department Care Team (Late st Contact Info) Description 12/03/2024 7:05 AM EST Laboratory Lab [facility] [address] [place], [place] [address] M[facility], [facility] [address] [place] [address] 12/10/2024 7:05 AM EST Laboratory [facility] [address] [place] [address] Mvmg, [facility] [address] [place] [address] 12/17/2024 7:05 AM EST Laboratory [facility] [address] [place] [address] Mvmg, [facility] [address] [place] [address] 12/24/2024 7:05 AM EST Laboratory [facility] [address] [place] [address] Mvmg, [facility] [address] [facility] [place] [address] 12/31/2024 7:05 AM EST Laboratory [facility] [address] [place] [address] Mvmg, [facility] Draw [address] [facility] [place] [address] 01/07/2025 7:05 AM EST Laboratory Lab [facility] Phlebot[facility] [address] [place] [address] Mvmg, [facility] Draw [address] [facility] [place] [address] 01/13/2025 2:00 PM EST Office Visit Hematology/Oncology [facility] [place] [address] [place] [id number] Jennifer Ramires MD [address] [place] [address] 01/14/2025 7:05 AM EST Laboratory Lab [facility] [address] [place] [address] Mvmg, [facility] [address] [facility] [place] [address] 01/21/2025 7:05 AM EST Laboratory Lab [facility] Ph[facility]bot[facility] [address] [place] [address] Mvmg, [facility] Draw [address] [place] [address] 01/26/2025 3:15 PM EST Office Visit Urology, [facility] [address] [place] [address] Frank Peraza MD [address] [place] [address] 01/28/2025 7:05 AM EST Laboratory Lab [facility] Phlebotomy [facility] [address] [place], [place] [address] Mvmg, [facility] Draw [address] [place], [place] [address] 02/04/2025 7:05 AM EST Laboratory [facility] Phlebot[facility] [address] [place] [address] Mvmg, G[facility] Draw [address] [facility] [place], [place] [address] 02/10/2025 3:00 PM EDT Office Visit Gastroenterology, [facility] [address] [facility] [address] Lamar Tatum CRNP [address] [facility] [place] [address] 02/11/2025 7:05 AM EDT Laboratory Lab Mobile Phlebotomy [facility] [address] [place], [place] [address] Mvmg, Gml [facility] Draw [address] [facility] [place], [place] [address] 02/18/2025 7:05 AM EDT Laboratory Lab [facility] Phlebotomy [facility] [address] [place], [place] [address] Mvmg, [facility] Draw [address] [place] [address] 02/25/2025 7:05 AM EDT Laboratory Lab [facility] Phlebot[facility] [address] [place], [place] [address] Mvmg, [facility] Draw [address] [place] [address] 03/04/2025 7:05 AM EDT Laboratory Lab [facility] Phlebotomy [facility] [address] [place] [address] Mvmg, G[facility] Draw [address] [facility] [place] [address] 03/11/2025 7:05 AM EDT Laboratory Lab Mobile Phlebotomy [facility] [address] [facility] [place] [address] Mvmg, Gml [facility] Draw [address] [facility] [place] [address] 03/18/2025 7:05 AM EDT Laboratory Lab Mobile Phlebotomy [facility] [address] [place] [address] Mvmg, Gml [facility] Draw [address] [facility] [place] [address] 03/25/2025 7:05 AM EDT Laboratory Lab Mobile Phlebotomy [facility] [address] [facility] [place] [address] Mvmg, Gml Mobile Home Draw [address] [place] [address] 03/29/2025 2:45 PM EDT Office Visit Dermatology [facility] [address] [place] [address] Francisco Watson MD [address] [place] [address] 04/01/2025 7:05 AM EDT Laboratory Lab Mobile Phlebotomy [facility] [address] [place] [address] Mvmg, Gml [facility] Draw [address] [facility] [place] [address] 04/08/2025 7:05 AM EDT Laboratory Lab Mobile Phlebotomy [facility] [address] [place] [address] Mvmg, Gml [facility] Draw [address] [facility] [place] [address] 04/15/2025 7:05 AM EDT Laboratory Lab Mobile Phlebotomy [facility] [address] [place] [address] Mvmg, Gml [facility] Draw [address] [place] [address] Scheduled Orders Name Type Priority Associated Diagnoses [...] 07/02, 06/30/2024, Additional history exists Albumin/Creatinine Ratio 05/19/20252 024, 07/12/2023, 10/01/2022, Additional history exists CKD PHOS USE SMARTSET 19008 05/19/202505/02, 05/08/2024, 04/07/2024, Additional history exists Diabetic Foot Exam 05/19/2025 05/19/2024, 0 03/06/2023, 01/03/2022, Additional history exists Depression Screening 08/10/2025 08/10/2024 CKD HGB USE SMARTSET 99481 11/17/202511/17, 11/03/2024, 11/02/2024, Additional history exists Sigmoidoscopy [...] this encounter Medical Devices Implanted Type Area Mechanical Technician Device Identifier Shelf Expiration Date Model / Serial / Lot Clareon Iol Aspheric Hydrophobic Acrylic Iol Implanted:Qty: 1 on 04/23/2023 by Cody Gonzalez DO at OR [facility] Lens Left: Eye 11/12/2025 CNA0T0 / [id number] / Viatorr Tips Endoprosthesis 8-10 Mm X 8cm / 2cm Implanted:Qty: 1 on 10/07/2020 by Go Alvarado MD at [facility] Right: Abdomen 03/03/2023 [id number] / / [id number] Description:Viatorr TIPS End oprosthesis 8-10 mm x 8cm / 2cm, Manufactored by [employer] [email or web address] Syr Pf 2ml Embospheres 100-300 - [id number] Implanted:Qty: 1 on 04/18/2021 by Kevin Lim DO at OR [facility] Left: Abdomen [employer] [id number] 11/25/2023 S220GH / / [id number] Lipiodol Injection - [id number] Implanted:Qty: 1 on 03/28/2022 at [facility] 03/01/2023 [id number] 01-2 / / [id number] Syr Pf 2ml Embospheres 100-300 - [id number] Implanted:Qty: 1 on 03/28/2022 at [facility] [employer] [id number] 08/31/2024 S220GH / / [id number] Clareon Iol Aspheric Hydrophobic Acrylic Iol Implanted:Qty: 1 on 04/02/2023 by Cody Gonzalez DO at OR [facility] Right: Eye JAZMIN 11/12/2025 CNA0T0 / [id number] / Syr Pf 2ml Embospheres 100-300 - [id number] Implanted:Qty: 1 on 06/11/2024 at [facility] [employer] [id number] 01/02/2027 S220GH / / [id number] Cath Diag Cobra 2 [id number] - [id number] Implanted:Qty: 1 on 06/11/2024 at [facility] [employer] [id number] 10/06/2026 [id number] / / [id number] documented as of this encounter Visit Diagnoses Diagnosis Iron deficiency anemia due to chronic blood loss- Primary Iron deficiency anemia secondary to blood loss (chronic) documented in this encounter Advance Directives Documents on File Type Date Recorded Patient Server Developer Expl anation Advance Directives and Living Will 12/11/2022 ADVANCE DIRECTIVE / LIVING WILL LIVING WILL Power of Television Camera Operator 12/11/2022 POWER OF A TTORNEY * [...] Discussed due to patient's condition Care Teams Principal Administrative Clerk Relationship Specialty Start Date End Date Kristen Vences DO [address] [address] PCP - General Family Medicine 05/19/24 documented as of this encounter
--- OUTSIDE RECORDS SUMMARY | 2024-12-04 16:50 | External Medical Summary | Summary of Care ---
Author Name Unknown Organization [facility] Address [address] [address] Phone [phone] Care Team Providers Care Open Pit Quarry Supervisor Name Role Phone Kristen Vences DO Primary Care Provider [phone] Reason for Visit * Reason Comments eRx-Medication Refill Encounter Details Date Type Department Care Team (Late st Contact Info) Description 11/29/2024 Refill General Internal Medicine [facility] [address] [facility] [place] [address] Francisco Cisse MD [address] [facility] [place] [address] Allergies No known active allergiesdocumented as of [...] 60 minute each unit 300 mL 100 04/16/2 024 Active Potassium Chloride Stephanie ER 20 MEQ [...] by mouth once daily 60 Tablet 5 Active Lactulose 10 GM Oral Packet (Kristalose)Indic [...] THE MORNING 180 Tablet 2 Active Lantus SoloStar 100 UNIT/ML Subcutaneous Solution Pen-injector INJECT 25 UNITS SUBCUTANEOUSLY IN THE EVENING WITH SUPPER 15 mL 1 Active Lantus 100 UNIT/ML Subcutaneous Solution Inject [...] mRNA, LNP-s, No Pre serve, 2-Dose Series (COTA) 03/08/2021,02/15/2021 COVID-19, MRNA-LNP, PF, 50 M CG/0.5 mL, 12 YRS AND ABOVE, IM (MODERNA-Spikevax) 10/18/2023 HepA Inact/HepB Recomb>=18yrs old 12/04/2019,04/2019,05/20/2019 11/19/2019 PPD 06/18/2017, 3,01/09/2012,06/2011 Pneumococcal Conjugate Vacc, 13 Valent (Prevnar) 05/01/2017 Pneumococcal Polysaccharide PPV23 (Pneumovax) 09/14/2022,08/28/2022,10/25/2015,07/02 Season Influenza, Quad, PF, Adjuvanted, 65+ Yrs, IM (FLUAD) 10/07/2020(Deferred: Patient Refused - pt says he already had his shot last month at [facility] and Mckinley Cobian made aware) [...] encounter Miscellaneous Notes * Telephone Encounter - Parmjit Restrepo, [facility] - 12/01/2024 7:50 AM ESTSigned Prescriptions: Disp Refills Lantus SoloStar 100 UNIT/ML Subcutaneous S*15 mL 1 Sig: INJECT 25 UNITS SUBCUTANEOUSLY IN THE EVENING WITH SUPPERAuthorizing Provider: FRANCISCO CISSEUser: PARMJIT ROMAN documented in this encounter Plan of Treatment Upcoming Encounters Date Type Department Care Team (Late st Contact Info) Description 12/03/2024 7:05 AM EST Laboratory Lab Mobile Phlebotomy [facility] [address] [place] [address] Mvmg, Gml Mobile Home Draw [address] [place] [address] 12/10/2024 7:05 AM EST Laboratory Lab [facility] Phlebot[facility] [address] [place] [address] Mvmg, Gml [facility] Home Draw [address] [place] [address] 12/17/2024 7:05 AM EST Laboratory Lab [facility] Phlebot[facility] [address] [place] [address] Mvmg, Gml [facility] Home Draw [address] [place] [address] 12/24/2024 7:05 AM EST Laboratory Lab [facility] [address] [place] [address] Mvmg, Gml [facility] Home Draw [address] [place] [address] 12/31/2024 7:05 AM EST Laboratory Lab [facility] Phlebot[facility] [address] [place] [address] Mvmg, Gml [facility] Home Draw [address] [place] [address] 01/07/2025 7:05 AM EST Laboratory Lab [facility] [address] [place] [address] Mvmg, Gml [facility] Home Draw [address] [place] [address] 01/13/2025 2:00 PM EST Office Visit Hematology/Oncology [facility] [place] [address] [place] [address] Jennifer Ramires MD [address] [place] [address] 01/14/2025 7:05 AM EST Laboratory Lab Mobile Phlebotomy [facility] [address] [place] [address] Mvmg, Gml Mobile Home Draw [address] [facility] [place] [address] 01/21/2025 7:05 AM EST Laboratory Lab Mobile Phlebotomy [facility] [address] [facility] [place] [address] Mvmg, Gml Mobile Home Draw [address] [place] [address] 01/26/2025 3:15 PM EST Office Visit Urology, [facility] [address] [facility] [address] Frank Peraza MD [address] [place] [address] 01/28/2025 7:05 AM EST Laboratory Lab Mobile Phlebotomy [facility] [address] [facility], [place] [address] Mvmg, Gml Mobile Home Draw [address] [place] [address] 02/04/2025 7:05 AM EST Laboratory Lab Mobile Phlebotomy [facility] [address] [address] Mvmg, Gml Mobile Home Draw [address] [place] [address] 02/10/2025 3:00 PM EDT Office Visit Gastroenterology, [facility] 132 [facility] [place] [address] Lamar Tatum CRNP 132 [facility] [place] [address] 02/11/2025 7:05 AM EDT Laboratory Lab Mobile Phlebotomy [facility] [address] [place] [address] Mvmg, Gml Mobile Home Draw [address] [place] [address] 02/18/2025 7:05 AM EDT Laboratory Lab Mobile Phlebotomy [facility] [address] [place] [address] Mvmg, Gml Mobile Home Draw [address] [place] [address] 02/25/2025 7:05 AM EDT Laboratory Lab Mobile Phlebotomy [facility] [address] [place] [address] Mvmg, Gml Mobile Home Draw [address] [facility] [place] [address] 03/04/2025 7:05 AM EDT Laboratory Lab Mobile Phlebotomy [facility] [address] [place] [address] Mvmg, Gml Mobile Home Draw [address] [facility] [place] [address] 03/11/2025 7:05 AM EDT Laboratory Lab Mobile Phlebotomy [facility] [address] [place] [address] Mvmg, Gml Mobile Home Draw [address] [facility] [place] [address] 03/18/2025 7:05 AM EDT Laboratory Lab Mobile Phlebotomy [facility] [address] [place] [address] Mvmg, Gml Mobile Home Draw [address] [place] [address] 03/25/2025 7:05 AM EDT Laboratory Lab Mobile Phlebotomy [facility] [address] [place] [address] Mvmg, Gml Mobile Home Draw [address] [facility] [place] [address] 03/29/2025 2:45 PM EDT Office Visit Dermatology [facility] [address] [facility] [place] [address] Francisco Watson MD [address] [facility] [place] [address] 04/01/2025 7:05 AM EDT Laboratory Lab Mobile Phlebotomy [facility] [address] [employer] [place], [place] [address] Mvmg, Gml Mobile Home Draw [address] [employer] [place], [place] [address] 04/08/2025 7:05 AM EDT Laboratory Lab Mobile Phlebotomy [facility] [address] [place] [address] Mvmg, Gml Mobile Home Draw [address] [place] [address] 04/15/2025 7:05 AM EDT Laboratory Lab Mobile Phlebotomy [facility] [address] [employer] [place], [place] [address] Mvmg, Gml Mobile Home Draw [address] [place] [address] Scheduled Procedures Name Priority Associated Diagnoses Date/Ti [...] Additional history exists CKD PHOS USE SMARTSET 81153 05/19/202505/02, 05/08/2024, 04/07/2024, Additional history exists Diabetic Foot Exam 05/19/2025 05/19/2024, 0 03/06/2023, 01/03/2022, Additional history exists Depression Screening 08/10/2025 08/10/2024 CKD HGB USE SMARTSET 43177 11/17/202511/17, 11/03/2024, 11/02/2024, Additional history exists Sigmoidoscopy [...] Medical Devices Implanted Type Area Long Term Care Pharmacist Device Identifier Shelf Expiration Date Model / Serial / Lot Clareaníbal Iol Aspheric Hydrophobic Acrylic Iol Implanted:Qty: 1 on 04/23/2023 by Cody Gonzalez DO at OR [facility] Lens Left: Eye 11/12/2025 CNA0T0 / [id number] 136 / Viatorr Tips Endoprosthesis 8-10 Mm X 8cm / 2cm Implanted:Qty: 1 on 10/07/2020 by Go Alvarado MD at [facility] Right: Abdomen 03/03/2023 [id number] / / [id number] Description:Viatorr TIPS End oprosthesis 8-10 mm x 8cm / 2cm, Manufactored by [employer] [email or web address] Syr Pf 2ml Embospheres 100-300 - [id number] Implanted:Qty: 1 on 04/18/2021 by Kevin Lim DO at OR [facility] Left: Abdomen [employer] [id number] 11/25/2023 S220GH / / [id number] Lipiodol Injection - [id number] Implanted:Qty: 1 on 03/28/2022 at [facility] [employer] 03/01/2023 [id number] 01-2 / / [id number] Syr Pf 2ml Embospheres 100-300 - [id number] Implanted:Qty: 1 on 03/28/2022 at [facility] [employer] [id number] 08/31/2024 S220GH / / [id number] -5 Clareon Iol Aspheric Hydrophobic Acrylic Iol Implanted:Qty: 1 on 04/02/2023 by Cody Gonzalez DO at OR [facility] Right: Eye JAZMIN 11/12/2025 CNA0T0 / [id number] 139 / Syr Pf 2ml Embospheres 100-300 - [id number] Implanted:Qty: 1 on 06/11/2024 at [facility] [employer] [id number] 01/02/2027 S220GH / / [id number] Cath Diag Cobra 2 [id number] - [id number] Implanted:Qty: 1 on 06/11/2024 at [facility] [employer] [id number] 10/06/2026 [id number] / / [id number] documented as of this encounter Advance Directives Documents on File Type Date Recorded Patient Marine Fitter Expl anation Advance Directives and Living Will 12/11/2022 ADVANCE DIRECTIVE / LIVING WILL LIVING WILL Power of Dispensing Audiologist 12/11/2022 POWER OF A TTORNEY * Full [...] Discussed due to patient's condition Care Teams Open Pit Quarry Supervisor Relationship Specialty Start Date End Date Kristen Vences DO [address] [place] [address] PCP - General Family Medicine 05/19/24 documented as of this encounter
--- OUTSIDE RECORDS SUMMARY | 2024-12-04 16:51 | External Medical Summary ---
Author Name Unknown Address Unknown Organization : Laboratory Report Ordering Provider Test Date Status PENNY EDGAR 11/26/2024 08:10:23 Final Observation Date Value Abnormality Reference (Units ) Status Glucose Point of Care 11/26/2024 08:10:23 153 Above high normal 70-120 (mg/dL) Final Performing Location
--- OUTSIDE RECORDS SUMMARY | 2024-12-04 16:51 | External Medical Summary | Summary of Care ---
Author Name Unknown Organization [facility] Address [address] [facility] [place] [address] Phone [phone] Care Team Providers Care Vehicle Maintenance Technician Name Role Phone Kristen Vences DO Primary Care Provider [phone] Reason for Visit * Auth/Cert Specialty Diagnoses / Procedures Referred By Chacho fleming Referred To Contact Diagnoses Esophageal varices without bleeding, unspecified esophageal varices type (HCC) Esophageal varices without bleeding, unspecified esophageal varices type (HCC) [I85.00] Procedures EGD, FLEXIBLE, DIAGNOSTIC ESOPHAGOGASTRODUODENOSCOPY (EGD), FLEXIBLE, TRANSORAL, DIAGNOSTIC David Duncan MD [address] [address] Phone: tel: fax: OR [facility], Operating Room, [facility] - 4th Floor [address] [place] [address] Phone: tel: Referral ID Status Reason Start Date Expiration Date Visits Re quested Visits Authorized [id number] [phone] Encounter Details Date Type Department Care Team (Latest Contact Info) Description 11/26/2024 7:53 AM EST - 11/26/2024 10:40 AM EST Hospital Encounter OR [facility], Operating Room, [facility] - 4th Floor [address] [place] [id number] David Duncan MD [address] [place] [address] Upper GI Endoscopy Discharge Disposition: Home - Self Care Allergies No known active allergiesdocumented as of this encounter (statuses as of 11/26/2024) Medications OneTouch Verio In Vitro Strip (Glucose [...] for nausea 90 Tablet 3 023 Active Lantus 100 UNIT/ML Subcutaneous Solution Inject 25 Units under the skin every evening. With dinner 3 Each 5 023 Active rifAXIMin 550 MG Oral Tablet [...] as needed for 2-3 weeks 453.6 g Active Albumin Human 25 % Intravenous SolutionIndicatio [...] 60 minute each unit 300 mL 100 024 Active Potassium Chloride Stephanie ER 20 MEQ Oral Tablet Extended Release 1 Tablet in the morning. 024 Active Finasteride 5 MG Oral Tablet (Proscar) TAKE 1 TABLET BY MOUTH IN THE MORNING 90 Tablet 1 024 Active Spironolactone 100 MG Oral Tablet (Aldactone) Take 1 Tablet by mouth in the morning. 90 Tablet 3 024 Active Cranberry 4200 MG Oral Capsule Take by mouth. 2 pills daily Active Solifenacin Succinate 5 MG Oral Tablet (VESIcare) Take 1 Tablet by mouth in the morning. 30 Tablet 6 024 Active Pantoprazole Sodium 40 MG Oral Tablet Delayed Release (Protonix)Indicat ions:GAVE (gastric antral vascular ectasia) TAKE 1 TABLET BY MOUTH IN THE MORNING AND 1 IN THE EVENING 60 Tablet 5 024 Active Additional Information Patient taking differently: Once [...] IN THE MORNING 180 Tablet 2 Active Allopurinol 100 MG Oral Tablet (Zyloprim)Indicat ions:Gout of big toe Take 2 Tablets by mouth in the morning. 180 Tablet 2 023 2023 Discontinued DULoxetine HCl 30 MG Oral Capsule Delayed Release Particles (Cymbalta) Take 1 Capsule by mouth in the morning. 90 Capsule 1 024 2023 Discontinued documented as of this encounter (statuses as of 11/26/2024) Active Problems Problem Noted Date Diagnosed Date [...] as of this encounter (statuses as of 11/26/2024) Resolved Problems Problem Noted Date Diagnosed Date [...] as of this encounter (statuses as of 11/26/2024) Immunizations Name Administration Dates Next Due COVID-19 mRNA, LNP-s, No Pre serve, 2-Dose Series (Eat Latin) 03/08/2021,02/15/2021 COVID-19, MRNA-LNP, PF, 50 M CG/0.5 [...] 08/10/2024 Does the household have a re lar [...] Sign Reading Time Taken Comments Blood Pressure 121/63 11/26/2024 10:29 AM EST Pulse 72 11/26/2024 10:29 AM EST Temperature 36 C (96.8 F) 11/26/2024 10:29 AM EST Respiratory Rate 14 11/26/2024 10:29 AM EST Oxygen Saturation 96% 11/26/2024 10:29 AM EST Inhaled Oxygen Concentration - - Weight 78.5 kg (173 lb) 11/26/2024 7:57 AM EST Height 177.8 cm (5' 10") 11/26/2024 7:57 AM EST Body Mass Index 24.82 11/26/2024 7:57 AM EST documented in this encounter Functional Status * Are you [...] Mg Huggins RN documented in this encounter H&P Notes * David Duncan MD - 11/26/2024 9:07 AM EST Endoscopy Pre-Procedure Assessment Name: Luis Hale Date: 11/26/2024 Time: 9:07 AM Procedure(s): Upper GI Endoscopy; with Indication(s) of treatment of varices Endoscopy Pre-Procedure Assessment: Prior to the procedure, the patient is identified. The patient's history, medications and allergieshave been reviewed. The patient is competent. The risks and benefits of the proposed procedure and the planned sedation have been discussed with the patient. All questions have been answered and informed consent for the procedure has been obtained. Prior to Admission medications Medication Sig Last Dose Discont. Allopurinol 100 MG Oral Tablet (Zyloprim) TAKE 2 TABLETS BY MOUTH IN THE MORNING 11/25/2024 Evening DULoxetine HCl 30 MG Oral Capsule Delayed Release Particles (Cymbalta) Take 1 capsule by mouth in the morning 11/25/2024 Morning Lactulose 10 GM Oral Packet (Kristalose) Take 1 Packet by mouth in the morning and 1 Packet before bedtime. Take one packet by mouth twice daily - titrate to 3 or more BMs/day.. 11/25/2024 Bedtime Furosemide 20 MG Oral Tablet (Lasix) 2 tabs by mouth once daily 11/25/2024 Morning Pantoprazole Sodium 40 MG Oral Tablet Delayed Release (Protonix) TAKE 1 TABLET BY MOUTH IN THE MORNING AND 1 IN THE EVENING Patient taking differently: Once daily 11/25/2024 Evening Solifenacin Succinate 5 MG Oral Tablet (VESIcare) Take 1 Tablet by mouth in the morning. 11/25/2024Morning Cranberry 4200 MG Oral Capsule Take by mouth. 2 pills daily 11/25/2024 Morning Spironolactone 100 MG Oral Tablet (Aldactone) Take 1 Tablet by mouth in the morning. 11/25/2024 Morning Finasteride 5 MG Oral Tablet (Proscar) TAKE 1 TABLET BY MOUTH IN THE MORNING 11/25/2024 Morning Potassium Chloride Stephanie ER 20 MEQ Oral Tablet Extended Release 1 Tablet in the morning. 11/25/2024 Morning Albumin Human 25 % Intravenous Solution If [...] in 30 to 60 minute each unit Past Month Triamcinolone Acetonide 0.1 % External Cream (Aristocort) Apply to psoriatic lesions on arms, legs,hands, feet, chest, back, abdomen twice a day as needed for 2-3 weeks Past Week rifAXIMin 550 MG Oral Tablet (Xifaxan) Take 1 Tablet by mouth in the morning and 1 Tablet before bedtime. 11/25/2024 Evening Lantus 100 UNIT/ML Subcutaneous Solution Inject 25 Units under the skin every evening. With dinner 11/25/2024 Bedtime Albumin Human 25 % Intravenous Solution 25Gm before and after paracentesis Past Month Probiotic (Lactobacillus) Oral Capsule 1 Capsule. 11/25/2024 Morning High Potency Iron 65 MG Oral Tablet Take by mouth. 11/25/2024 Morning Multivitamin Men 50+ Oral Tablet Take by mouth. 11/25/2024 Morning N-Acetyl Cysteine 600 MG Oral Tablet (Acetylcysteine (Nutrient)) Take by mouth. Takes 1 daily Unknown Zinc 50 MG Oral Capsule Take 1 Capsule by mouth in the morning. 11/25/2024 Morning BD Pen Needle Elizabeth 2nd Gen 32G X 4 MM USE DIRECTED TO ADMINISTER INSULIN AT DINNER DAILY 11/25/2024 Bedtime Albumin Human 25 % Intravenous Solution If [...] in 30 to 60 minute each unit Metoclopramide HCl 5 MG Oral Tablet (Reglan) One tab as often as 3 times a day, if needed for nausea Over 30 Days oxygen IN GAS Use 2 L/min(Oxygen) as directed at bedtime. Patient not taking: Reported on 08/14/2024 Over 30 Days FreeStyle Wang 2 Sensor Use as directed. Every 14 days Patient not taking: Reported on 08/13/2024 Over 30 Days OneTouch Verio In Vitro Strip (Glucose Blood) Use to test blood sugars 3 times a day Patient not taking: Reported on 11/26/2024 Not Taking Review of patient's allergies indicates: No Known Allergies BP 129/70 | Pulse 65 | Temp 35.9 C (96.6 F) (Tympanic) | Resp 18 | Ht 1.778 m (5' 10") | Wt 78.5 kg (173 lb) | SpO2 100% | BMI 24.82 kg/m | BSA 1.97 m Physical Exam: Mental Status Examination: alert and oriented. Airway Examination: normal oropharyngeal airway and neck mobility. Respiratory Examination: clear to auscultation. CV Examination: normal. ASA Grade: III - A patient with severe systemic disease. Abdomen: negative This patient has undergone a preprocedural evaluation. A determination has been made to proceed with the planned procedure under [facility] procedural guidelines and the [facility] Non-Emergent, Elective Medical Services and Treatment Recommendations (published on 03-08-20). The community and hospital prevalence of COVID-19 has been discussed as well as this patient's specific risks associated with SARS-CoV-19 infection. Based upon the clinical acuity and patient-specific care considerations, this procedure is deemed a Tier II - Intermediate acuity treatment or service with either progression or the threat of progressive disease related to the delay in treatment. Not providing the service has the potential for increasing morbidity or mortality. After reviewing the risks and benefits, the patient is deemed in satisfactory condition to undergo the procedure. The anesthesia plan is to use general anesthesia. David Duncan MD 11/26/2024 documented in this encounter Procedure Notes * Lamar Tatum CRNP - 11/26/2024 9:13 AM ESTAssociated Order(s): UPPER GI ENDOSCOPY [facility] Patient Name: Luis Hale Procedure Date: 11/26/2024 9:13 AM Date of : 1950 Admit Type: Outpatient Note Status: Draft Date of : 1950 Admit Type: Outpatient Age: 74 Room: OR 5 Gender: Male Note Status: Copyright Manager Override Procedure: Upper GI endoscopy Indications: Follow-up of esophageal varices, Watermelon stomach (GAVE syndrome) Providers: David Duncan MD (Doctor) Referring MD: Lamar Tatum NP Medicines: See the Anesthesia note for documentation of the administered medications Complications: No immediate complications. Procedure: Pre-Anesthesia Assessment: - See [facility] electronic record for H&P. After obtaining informed consent, the endoscope was passed under direct vision. All instruments were visually inspected immediately before and after removal from the patient to ensure they are fully intact. Throughout the procedure, the patient's blood pressure, pulse, and oxygen saturations were monitored continuously. The GIF-Q190 Endoscope ([id number]) was introduced through the mouth, and advanced to the second part of duodenum. The upper GI endoscopy was accomplished without difficulty. The patient tolerated the procedure well. Findings & Specimens: Two columns of grade I varices were found in the entire esophagus. No red jenn signs were present. Scarring from prior treatment was visible. There was severe portal gastropathy in the fundus and body of the stomach, characterized by edema and snakeskin appearance of the stomach. 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 This was cauterized using APC at standard settings. The duodenum was normal. Recommendation: - Discharge patient to home. David Duncan MD 11/26/2024 9:44:53 AM This report has been signed electronically. documented in this encounter Nursing Notes * Dallas Bertrand RN - 11/26/2024 9:52 AM EST [address] [address] SameDay Surgery Discharge Note Name: Luis Hale Date: 11/26/2024 Time: 10:44 AM Discharge Disposition: Home Responsible adult as escort home: tari Johnson Transport Mode: Wheelchair Accompanied by: Dallas Bertrand RN To: Car Belongings with patient: Yes Patient meets criteria to be transferred or discharged. * Taurus Charles RN - 11/26/2024 9:28 AM EST EGD completed, antrum of stomach APC'd. Sedated by REGIONAL OPERATIONS MANAGER. See anesthesia record for VS and medications given. Pt tolerated procedure well with minimal gagging. Abd soft. Airway patent. Pt to [facility] recovery on L side with HOB elevated. Report to [facility] recovery room nurse. Bedside cleaning done by Noel Baugh LPN. documented in this encounter Plan of Treatment Upcoming Encounters Date Type Department Care Team (Late st Contact Info) Description 01/13/2025 2:00 PM EST Office Visit Hematology/Oncology [facility] [address] [facility] [place] [phone] Jennifer Ramires MD [address] [facility] [place] [address] 01/26/2025 3:15 PM EST Office Visit Urology, [facility] [address] [place] [address] Frank Peraza MD [address] [place] [address] 02/10/2025 3:00 PM EDT Office Visit Gastroenterology, [facility] [address] [place] [address] Lamar Tatum CRNP [address] [place] [address] 03/29/2025 2:45 PM EDT Office Visit Dermatology [facility] [address] [facility] [place] [address] Francisco Watson MD [address] [facility] [place] [address] Scheduled Orders Name Type Priority Associated Diagnoses Orde r Schedule GLUCOSE METER, POINT OF CARE (COMMUNICATION ORDER) Point of Care Testing STAT Perform Now for 1 Occurrences starting 11/26/2024 until 11/26/2024 Scheduled Procedures Name Priority Associated Diagnoses Date/Ti me ESOPHAGOGASTRODUODENOSCOPY ( EGD), FLEXIBLE, TRANSORAL, DIAGNOSTIC Esophageal varices without bleeding, unspecified esophageal varices type (HCC) 11/26/2024 9:04 AM EST COLONOSCOPY FLEXIBLE PROXIMA L DIAGNOSTIC Recall History of colonic polyps Portal hypertensive gastropathy (HCC) ESOPHAGOGASTRODUODENOSCOPY ( EGD), FLEXIBLE, TRANSORAL, DIAGNOSTIC Recall History of colonic polyps Portal hypertensive gastropathy (HCC) Health Maintenance Due Date Last Done Comments Karri 1995 Fecal Occult Blood Test 05/08/2015 05/08/2014 Adult Wellness Visit 03/07/2019 03/07/2018 Diabetic Eye Exam 01/17/2024 01/17/2023, , 01/17/2023, Additional history exists Influenza Vaccine (FLU shot) (#1) 2024 10/11/2023, 10/11/2023, 09/15/2021, Additional history exists Colonoscopy 08/09/2024 08/09/2023, 06/2022, 11/07/2022, Additional history exists Colorectal Cancer Screening 08/09/2024 HbA1c 12/31/2024 06/30/2024, 0 06/2024, 11/27/2023, Additional history exists GFR 04/12/2025 10/13/2024, 07/02, 06/30/2024, Additional history exists Albumin/Creatinine Ratio 05/19/2025 024, 07/12/2023, 10/01/2022, Additional history exists CKD PHOS USE SMARTSET 51733 05/19/202505/02, 05/08/2024, 04/07/2024, Additional history exists Diabetic Foot Exam 05/19/2025 05/19/2024, 0 03/06/2023, 01/03/2022, Additional history exists Depression Screening 08/10/2025 08/10/2024 CKD HGB USE SMARTSET 80032 11/17/202511/17, 11/03/2024, 11/02/2024, Additional history exists Sigmoidoscopy [...] this encounter Medical Devices Implanted Type Area Tube Sizer Operator Device Identifier Shelf Expiration Date Model / Serial / Lot Clareon Iol Aspheric Hydrophobic Acrylic Iol Implanted:Qty: 1 on 04/23/2023 by Cody Gonzalez DO at OR [facility] Lens Left: Eye 11/12/2025 [id number] / [id number] / Viatorr Tips Endoprosthesis 8-10 Mm X 8cm / 2cm Implanted:Qty: 1 on 10/07/2020 by Go Alvarado MD at [facility] Right: Abdomen 03/03/2023 [id number] / / [id number] Description:Viatorr TIPS End oprosthesis 8-10 mm x 8cm / 2cm, Manufactored by [employer] [email or web address] Syr Pf 2ml Embospheres 100-300 - [id number] Implanted:Qty: 1 on 04/18/2021 by Kevin Lim DO at OR [facility] Left: Abdomen [employer] [id number] 11/25/2023 S220GH / / [id number] Lipiodol Injection - [id number] Implanted:Qty: 1 on 03/28/2022 at [facility] [employer] 03/01/2023 [id number] 01-2 / / [id number] Syr Pf 2ml Embospheres 100-300 - [id number] Implanted:Qty: 1 on 03/28/2022 at [facility] [employer] [id number] 08/31/2024 S220GH / / [id number] -[id number] Clareon Iol Aspheric Hydrophobic Acrylic Iol Implanted:Qty: 1 on 04/02/2023 by Cody Gonzalez DO at OR [facility] Right: Eye [id number] 11/12/2025 CNA0T0 / [id number] / Syr Pf 2ml Embospheres 100-300 - [id number] Implanted:Qty: 1 on 06/11/2024 at [facility] [employer] [id number] 01/02/2027 S220GH / / [id number] -[id number] Cath Diag Cobra 2 [id number] - [id number] Implanted:Qty: 1 on 06/11/2024 at [facility] [employer] [id number] 10/06/2026 [id number] / / [id number] documented as of this encounter Procedures Procedure Name Priority Date/Time Associated Diagnosis Comments UPPER GI ENDOSCOPY 11/26/2024 9: 13 AM EST GLUCOSE METER, POINT OF CARE NATY 11/26/2024 8:10 AM EST documented in this encounter Results * UPPER GI ENDOSCOPY (11/26/2024 9:13 AM EST) 11/26/2024 9:13 AM EST Narrative Procedure Note Lamar Tatum CRNP - 11/26/2024 9:13 AM EST [facility] Patient Name: Luis Hale Procedure Date: 11/26/2024 9:13 AM Date of : 1950 Admit Type: Outpatient Note Status:Draft Date of : 1950 Admit Type: Outpatient Age: 74 Room: OR 5 Gender: Male Note Status: Copyright Manager Override Procedure: Upper GI endoscopy Indications: Follow-up of esophageal varices, Watermelon stomach(GAVE syndrome) Providers: David Duncan MD (Doctor) Referring MD: Lamar Tatum NP Medicines: See the Anesthesia note for documentation of theadministered medications Complications: No immediate complications. Procedure: Pre-Anesthesia Assessment: - See [facility] electronic record for H&P. After obtaining informed consent, the endoscope waspassed under direct vision. All instruments were visually inspected immediatelybefore and after removal from the patient to ensure they are fully intact. Throughoutthe procedure, the patient's blood pressure, pulse, and oxygen saturations weremonitored continuously. The GIF-Q190 Endoscope ([id number]) was introduced throughthe mouth, and advanced to the second part of duodenum. The upper GI endoscopy wasaccomplished without difficulty. The patient tolerated the procedure well. Findings & Specimens: Two columns of grade I varices were found in the entire esophagus. Nored jenn signs were present. Scarring from prior treatment was visible. There was severe portal gastropathy in the fundus and body of thestomach, characterized by edema and snakeskin appearance of the stomach. 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 This was cauterized using APC at standard settings. The duodenum was normal. Recommendation: - Discharge patient to home. David Duncan MD 11/26/2024 9:44:53 AM This report has been signed electronically. us Lamar AGUILAR GASTRO UPPER Edited Res ult - Final * (ABNORMAL) GLUCOSE METER, POINT OF CARE (11/26/2024 8:10 AM EST) GLUCOSE - POCT 153(H) 70 - 120 mg/dL 11/26/2024 8:14 AM EST [facility] Blood Whole blood specimen / Unknown 11/26/2024 8:10 AM EST 11/26/2024 8:14 AM EST David Duncan MD LAB POINT OF CA RE TEST DOCKED DEVICE UNSOLICITED RESULTS Final Result [facility] [address] [address] documented in this encounter Administered Medications Inactive Administered Medications - up to 3 most recent administrations Medication Order MAR Action Action Date Dose Rate Site Isolyte-S pH 7.4 infusion Intravenous, at 25 mL/hr, All Patients EXCEPT Dialysis patients Plasma-LYTE 148, isolyte-S, and isolyte-S pH 7.4 are considered equivalent - including for MAR barcode scanning., CONTINUOUS, Starting on Sharon 11/26/24 at 0900, Until Sharon 11/26/24 at 1445, Pre-Op Restarted 11/26/2024 9:24 AM EST Continue from Pre-Op 11/26/2024 9:09 AM EST 25 mL/hr New Bag 11/26/2024 8:20 AM EST 25 mL/hr 25 mL/hr documented in this encounter Active and Recently Administered Medications Times are shown in EST. Continuous Medication Order 11/24/2024 11/25/2024 11/26/2024 Isolyte-S pH 7.4 infusion Intravenous, at 25 mL/hr, All Patients EXCEPT Dialysis patients Plasma-LYTE 148, isolyte-S, and isolyte-S pH 7.4 are considered equivalent - including for MAR barcode scanning., CONTINUOUS, Starting on Sharon 11/26/24 at 0900, Until Sharon 11/26/24 at 1445, Pre-Op 0820 (New Bag - Prov ider: Dallas Bertrand RN)0909 (Continue from Pre-Op - Provider: Micaela Boyd CRNA)0923 (Paused - Provider: Micaela Boyd CRNA - Comment: Switch to gravity)0924 (Restarted - Provider: Micaela Boyd CRNA) documented in this encounter Advance Directives Documents on File Type Date Recorded 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
--- OUTSIDE RECORDS SUMMARY | 2024-12-04 16:51 | External Medical Summary | Summary of Care ---
Author Name Unknown Organization [facility] Address [address] [place] [address] Phone [phone] Care Team Providers Care Stave Cutting Supervisor Name Role Phone Vangie Kristenlang Rubin DO Primary Care Provider +1 [phone] Reason for Visit * Reason Onset Date Comments Advice 11/30/2024 Keyla Encounter Details Date Type Department Care Team (Late st Contact Info) Description 11/30/2024 Telephone Hematology/Oncology, [facility] [address] [place] [address] Keyla, Jennifer Aragon [facility] [address] Advice (Keyla ) Allergies No known active [...] mRNA, LNP-s, No Pre serve, 2-Dose Series (MonoSphere) 03/08/2021,02/15/2021 COVID-19, MRNA-LNP, PF, 50 M CG/0.5 [...] of Assessment Author No 05/08/2024 6:04 PM gM Huggins RN * Are you blind or [...] [facility] tomorrow. Please contact Luis at [phone]. Thank you. * Telephone Encounter - Aspen De Santiago OSA - 11/30/2024 8:11 AM EST Patient calling asking if he can get an order sent over to [facility] for a blood transfusion. States he has been feeling very tired. documented in this encounter Plan of Treatment Upcoming Encounters Date Type Department Care Team (Late st Contact Info) Description 12/03/2024 7:05 AM EST Laboratory Lab Mobile Phlebotomy [facility] [address] [facility] [place], [place] [address] Mvmg, Gml Mobile Home Draw [address] [facility] [place], [place] [address] 12/10/2024 7:05 AM EST Laboratory Lab Mobile Phlebotomy [facility] [address] [facility] [place], [place] [address] Mvmg, Gml Mobile Home Draw [address] [place], [place] [address] 12/17/2024 7:05 AM EST Laboratory Lab Mobile Phlebotomy [facility] [address] [place], [place] [address] Mvmg, Gml Mobile Home Draw [address] [place], [place] [address] 12/24/2024 7:05 AM EST Laboratory Lab Mobile Phlebotomy [facility] [address] [facility] [place], [place] [address] Mvmg, Gml Mobile Home Draw [address] [place] [address] 12/31/2024 7:05 AM EST Laboratory Lab Mobile Phlebotomy [facility] [address] [place], [place] [address] Mvmg, Gml Mobile Home Draw [address] [facility] [place] [address] 01/07/2025 7:05 AM EST Laboratory Lab Mobile Phlebotomy [facility] [address] [place], [place] [address] Mvmg, Gml Mobile Home Draw [address] [facility] [place], [place] [address] 01/13/2025 2:00 PM EST Office Visit Hematology/Oncology [facility] [address] [facility], [place] [phone] Jennifer Ramires MD [address] [facility], [place] [address] 01/14/2025 7:05 AM EST Laboratory Lab Mobile Phlebotomy [facility] [address] [facility] [place], [place] [address] Mvmg, Gml Mobile Home Draw [address] [facility] [place], [place] [address] 01/21/2025 7:05 AM EST Laboratory Lab Mobile Phlebotomy [facility] [address] [facility] [place], [place] [address] Mvmg, Gml Mobile Home Draw [address] [facility] [place], [place] [address] 01/26/2025 3:15 PM EST Office Visit Urology, [facility] [address] [place] [address] Frank Peraza MD [address] [place] [address] 01/28/2025 7:05 AM EST Laboratory Lab Mobile Phlebotomy [facility] [address] [place], [place] [address] Mvmg, Gml Mobile Home Draw [address] [place] [address] 02/04/2025 7:05 AM EST Laboratory Lab Mobile Phlebotomy [facility] [address] [place], [place] [address] Mvmg, Gml Mobile Home Draw [address] [facility] [place] [address] 02/10/2025 3:00 PM EDT Office Visit Gastroenterology, [facility] [address] [place] [address] Lamar Tatum CRNP [address] [place] [address] 02/11/2025 7:05 AM EDT Laboratory Lab Mobile Phlebotomy [facility] [address] [address] Mvmg, Gml Mobile Home Draw [address] [facility] [place] [address] 02/18/2025 7:05 AM EDT Laboratory Lab Mobile Phlebotomy [facility] [address] [place], [place] [address] Mvmg, Gml Mobile Home Draw [address] [facility] [place] [address] 02/25/2025 7:05 AM EDT Laboratory Lab Mobile Phlebotomy [facility] [address] [address] Mvmg, Gml Mobile Home Draw [address] [facility] [place] [address] 03/04/2025 7:05 AM EDT Laboratory Lab Mobile Phlebotomy [facility] [address] [place] [address] Mvmg, Gml Mobile Home Draw [address] [facility] [place] [address] 03/11/2025 7:05 AM EDT Laboratory Lab Mobile Phlebotomy [facility] [address] [place] [address] Mvmg, Gml Mobile Home Draw [address] [place] [address] 03/18/2025 7:05 AM EDT Laboratory Lab Mobile Phlebotomy [facility] [address] [place], [place] [address] Mvmg, Gml Mobile Home Draw [address] [place], [place] [address] 03/25/2025 7:05 AM EDT Laboratory Lab Mobile Phlebotomy [facility] [address] [place], [place] [address] Mvmg, Gml Mobile Home Draw [address] [employer], [place] [address] 03/29/2025 2:45 PM EDT [facility] [address] [facility] [address] [place], [place] [address] Francisco Watson MD [address] [facility] [address] [place], [place] [address] 04/01/2025 7:05 AM EDT Laboratory Lab Mobile Phlebotomy [facility] [address] [place], [place] [address] Mvmg, Gml Mobile Home Draw [address] [employer], [place] [address] 04/08/2025 7:05 AM EDT Laboratory Lab Mobile Phlebotomy [facility] [address] [place], [place] [address] Mvmg, Gml Mobile Home Draw [address] [employer], [place] [address] 04/15/2025 7:05 AM EDT Laboratory Lab Mobile Phlebotomy [facility] [address] [place] [address] Mvmg, Gml Mobile Home Draw [address] [place], [place] [address] Scheduled Procedures Name Priority Associated Diagnoses Date/Ti [...] Additional history exists CKD PHOS USE SMARTSET 21161 05/19/202505/02, 05/08/2024, 04/07/2024, Additional history exists Diabetic Foot Exam 05/19/2025 05/19/2024, 0 03/06/2023, 01/03/2022, Additional history exists Depression Screening 08/10/2025 08/10/2024 CKD HGB USE SMARTSET 67145 11/17/202511/17, 11/03/2024, 11/02/2024, Additional history exists Sigmoidoscopy [...] this encounter Medical Devices Implanted Type Area Implementation Lead Device Identifier Shelf Expiration Date Model / Serial / Lot Clareon Iol Aspheric Hydrophobic Acrylic Iol Implanted:Qty: 1 on 04/23/2023 by Cody Gonzalez DO at OR [facility] Lens Left: Eye 11/12/2025 CNA0T0 / [id number] / Viatorr Tips Endoprosthesis 8-10 Mm X 8cm / 2cm Implanted:Qty: 1 on 10/07/2020 by Go Alvarado MD at [facility] Right: Abdomen 03/03/2023 [id number] / / [id number] Description:Viatorr TIPS End oprosthesis 8-10 mm x 8cm / 2cm, Manufactored by [employer] [email or web address] Syr Pf 2ml Embospheres 100-300 - [id number] Implanted:Qty: 1 on 04/18/2021 by Kevin Lim DO at OR [facility] Left: Abdomen [employer] [id number] 11/25/2023 S220GH / / [id number] Lipiodol Injection - [id number] Implanted:Qty: 1 on 03/28/2022 at [facility] [employer] 03/01/2023 [id number] 01-2 / / [id number] Syr Pf 2ml Embospheres 100-300 - [id number] Implanted:Qty: 1 on 03/28/2022 at [facility] [employer] [id number] 08/31/2024 S220GH / / [id number] -[id number] Clareon Iol Aspheric Hydrophobic Acrylic Iol Implanted:Qty: 1 on 04/02/2023 by Cody Gonzalez DO at [facility] Right: Eye JAZMIN 11/12/2025 CNA0T0 / [id number] / Syr Pf 2ml Embospheres 100-300 - [id number] Implanted:Qty: 1 on 06/11/2024 at [facility] [employer] [id number] 01/02/2027 S220 / / [id number] -[id number] Cath Diag Cobra 2 [id number] - [id number] Implanted:Qty: 1 on 06/11/2024 at [facility] [employer] [id number] 10/06/2026 [id number] / / [id number] documented as of this encounter Advance Directives Documents on File Type Date Recorded Patient Revenue Enforcement Agent Expl anation Advance Directives and Living Will 12/11/2022 ADVANCE DIRECTIVE / LIVING WILL LIVING WILL Power of Business Reporting Developer 12/11/2022 POWER OF A TTORNEY * Full [...] Discussed due to patient's condition Care Teams Stave Cutting Supervisor Relationship Specialty Start Date End Date Kristen Vences DO [address] [place] [address] PCP - General Family Medicine 05/19/24 documented as of this encounter
--- OUTSIDE RECORDS SUMMARY | 2024-12-04 16:51 | External Medical Summary | Summary of Care ---
Author Name Unknown Organization [facility] Address [address] [facility] [place] [address] Phone [phone] Care Team Providers Care Senior Policy Associate Name Role Phone Kristen Vences DO Primary Care Provider [phone] Encounter Details Date Type Department Care Team (Late st Contact Info) Description 11/18/2024 Orders Only [facility]enterology, [facility] [place] [address] Lamar Tatum CRNP [address] [place] [address] Allergies No known active allergiesdocumented as of this encounter (statuses as of 11/18/2024) Medications OneTouch Verio In Vitro Strip (Glucose Blood)Indications: Type 2 diabetes mellitus with hemoglobin A1c goal of less than 7.0% ([facility]) Use to test blood sugars 3 times a day 300 Strip 5 09/27/20 Active BD Pen Needle Elizabeth 2nd Gen [...] Patient taking differently: Once daily, Reported on 11/16/2024 Furosemide 20 MG Oral Tablet (Lasix) 2 [...] as of this encounter (statuses as of 11/18/2024) Active Problems Problem Noted Date Diagnosed Date [...] as of this encounter (statuses as of 11/18/2024) Resolved Problems Problem Noted Date Diagnosed Date [...] as of this encounter (statuses as of 11/18/2024) Immunizations Name Administration Dates Next Due COVID-19 mRNA, LNP-s, No Pre serve, 2-Dose Series (Zocere) 03/08/2021,02/15/2021 COVID-19, MRNA-LNP, PF, 50 M CG/0.5 [...] Care Team (Latest Contact Info) Description 11/26/2024 9:03 AM EST Hospital Encounter OR [facility], Operating Room, [facility] - 4th Floor [address] [place] [phone] David Duncan MD [address] [place] [address] 11/26/2024 9:03 AM EST - 11/26/2024 9:43 AM EST Surgery OR [facility], Operating Room, [facility] - 4th Floor [address] [place] [phone] David Duncan MD [address] [place] [address] ESOPHAGOGASTRODUODENOSCOPY (EGD), FLEXIBLE, TRANSORAL, DIAGNOSTIC 01/13/2025 2:00 PM EST Office Visit Hematology/Oncol ogy [facility] [address] [facility] [place] [phone] Jennifer Ramires MD [address] [facility] [place] [address] 01/26/2025 3:15 PM EST Office Visit Urology, [facility] [address] [place] [address] Frank Peraza MD [address] [place] [address] 02/10/2025 3:00 PM EDT Office Visit Gastroenterology , [facility] [address] [place] [address] Lamar Tatum CRNP [address] [place] [address] 03/29/2025 2:45 PM EDT Office Visit Dermatology [facility] [address] [facility] [place] [address] Francisco aWtson MD [address] [facility] [place] [address] Scheduled Procedures Name Priority Associated Diagnoses Date/Ti me ESOPHAGOGASTRODUODENOSCOPY ( EGD), FLEXIBLE, TRANSORAL, DIAGNOSTIC Esophageal varices without bleeding, unspecified esophageal varices type (HCC) 11/26/2024 9:03 AM EST COLONOSCOPY FLEXIBLE PROXIMA L DIAGNOSTIC [...] Additional history exists CKD PHOS USE SMARTSET 79955 05/19/202505/02, 05/08/2024, 04/07/2024, Additional history exists Diabetic Foot Exam 05/19/2025 05/19/2024, 0 03/06/2023, 01/03/2022, Additional history exists Depression Screening 08/10/2025 08/10/2024 CKD HGB USE SMARTSET 25845 11/18/202511/17, 11/03/2024, 11/02/2024, Additional history exists Sigmoidoscopy 04/12/2027 [...] this encounter Medical Devices Implanted Type Area Allied Health Instructor Device Identifier Shelf Expiration Date Model / Serial / Lot Clareon Iol Aspheric Hydrophobic Acrylic Iol Implanted:Qty: 1 on 04/23/2023 by Cody Gonzalez DO at OR [facility] Lens Left: Eye 11/12/2025 CNA0T0 / [id number] 136 / Viatorr Tips Endoprosthesis 8-10 Mm X 8cm / 2cm Implanted:Qty: 1 on 10/07/2020 by Go Alvarado MD at [facility] Right: Abdomen 03/03/2023 [id number] / / [id number] Description:Viatorr TIPS End oprosthesis 8-10 mm x 8cm / 2cm, Manufactored by [employer] [email or web address] Syr Pf 2ml Embospheres 100-300 - [id number] Implanted:Qty: 1 on 04/18/2021 by Kevin Lim DO at OR [facility] Left: Abdomen [employer] [id number] 11/25/2023 S220GH / / [id number] -5 Lipiodol Injection - [id number] Implanted:Qty: 1 on 03/28/2022 at [facility] [employer] 03/01/2023 81110-65 01-2 / / [id number] Syr Pf 2ml Embospheres 100-300 - [id number] Implanted:Qty: 1 on 03/28/2022 at [facility] [employer] [id number] 08/31/2024 S220GH / / [id number] -5 Clareon Iol Aspheric Hydrophobic Acrylic Iol Implanted:Qty: 1 on 04/02/2023 by Cody Gonzalez DO at OR [facility] Right: Eye JAZMIN 11/12/2025 CNA0T0 / [id number] 139 / Syr Pf 2ml Embospheres 100-300 - [id number] Implanted:Qty: 1 on 06/11/2024 at [facility] [employer] [id number] 01/02/2027 S220GH / / [id number] -[id number] Cath Diag Cobra 2 [id number] - [id number] Implanted:Qty: 1 on 06/11/2024 at [facility] [employer] [id number] 10/06/2026 [id number] / / [id number] documented as of this encounter Procedures Procedure Name Priority Date/Time Associated Diagnosis Comments CBC Routine 11/17/2024 PT INR Routine 11/17/2024 documented in this encounter Results * (ABNORMAL) CBC WITH WBC DIFFERENTIAL (11/17/2024) HGB 8.5(A) 14.0 - 18.0 G/DL OUTSIDE LAB (SEE SCANNED REPORT) Blood Venous blood specimen / Unknown 11/17/2024 Lamar [facility] BLOOD ORDERABLES Final Result OUTSIDE LAB (SEE SCANNED REPORT) * PT INR (11/17/2024) Blood Venous blood specimen / Unknown 11/17/2024 us Lamar [facility] BLOOD ORDERABLES Final Result OUTSIDE LAB (SEE SCANNED REPORT) documented in this encounter Advance Directives Documents on File Type Date Recorded Patient Communications Program Manager Expl anation Advance Directives and Living Will 12/11/2022 ADVANCE DIRECTIVE / LIVING WILL LIVING WILL Power of Flight Purser 12/11/2022 POWER OF A TTORNEY * Full [...] Discussed due to patient's condition Care Teams Senior Policy Associate Relationship Specialty Start Date End Date Kristen Vences DO [address] [place] [address] PCP - General Family Medicine 05/19/24 documented as of this encounter
--- OUTSIDE RECORDS SUMMARY | 2024-12-04 16:51 | External Medical Summary | Summary of Care ---
Author Name Unknown Organization [facility] Address [address] [facility] [address] Phone [phone] Care Team Providers Care Philosophy Lecturer Name Role Phone Kristen Vences DO Primary Care Provider +1 [phone] Encounter Details Date Type Department Care Team (Late st Contact Info) Description 11/17/2024 Result Scan Unspecified Department Lamar Tatum CRNP [address] [place] [address] <No scans attached> Allergies No known active [...] mRNA, LNP-s, No Pre serve, 2-Dose Series (wmbly) 03/08/2021,02/15/2021 COVID-19, MRNA-LNP, PF, 50 M CG/0.5 mL, 12 YRS AND ABOVE, IM (MODERNA-Spikevax) 10/18/2023 HepA Inact/HepB Recomb>=18yrs old 12/04/2019,04/2019,05/20/2019 11/19/2019 PPD 06/18/2017, 3,01/09/2012,06/2011 Pneumococcal Conjugate Vacc, 13 Valent (Prevnar) 05/01/2017 Pneumococcal Polysaccharide PPV23 (Pneumovax) 09/14/2022,08/28/2022,10/25/2015,07/02 Season Influenza, Quad, PF, Adjuvanted, 65+ Yrs, IM (FLUAD) 10/07/2020(Deferred: Patient Refused - pt says he already had his shot last month at [facility] Handy Lyons and Mckinley Cobian made [...] [facility], Operating Room, [facility] - 4th Floor [address] [place] [address] David Dnucan MD [address] [place] [address] 11/26/2024 9:03 AM EST - 11/26/2024 9:43 AM EST Surgery OR [facility], Operating Room, [facility] - 4th Floor [address] [place] [phone] David Duncan MD [address] [place] [address] ESOPHAGOGASTRODUODENOSCOPY (EGD), FLEXIBLE, TRANSORAL, DIAGNOSTIC 01/13/2025 2:00 PM EST Office Visit Hematology/Oncol ogy [facility] 200 [facility] [place], [place] [phone] Jennifer Ramires MD 200 [facility] [place] [address] 01/26/2025 3:15 PM EST Office Visit Urology, [facility] [address] [place] [address] Frank Peraza MD [address] [facility] [place] [address] 02/10/2025 3:00 PM EDT Office Visit Gastroenterology , [facility] [address] [place] [address] Lamar Tatum CRNP [address] [place] [address] 03/29/2025 2:45 PM EDT Office Visit Dermatology [facility] 200 [facility] [place], [place] [address] Francisco Watson MD 200 [facility] [place], [place] [address] Scheduled Procedures Name Priority Associated Diagnoses Date/Ti [...] Additional history exists CKD PHOS USE SMARTSET 13407 05/19/202505/02, 05/08/2024, 04/07/2024, Additional history exists Diabetic Foot Exam 05/19/2025 05/19/2024, 0 03/06/2023, 01/03/2022, Additional history exists Depression Screening 08/10/2025 08/10/2024 CKD HGB USE SMARTSET 36304 11/17/202511/17, 11/03/2024, 11/02/2024, Additional history exists Sigmoidoscopy [...] this encounter Medical Devices Implanted Type Area Gasoline Truck Crane Operator Device Identifier Shelf Expiration Date Model / Serial / Lot Clareon Iol Aspheric Hydrophobic Acrylic Iol Implanted:Qty: 1 on 04/23/2023 by Cody Gonzalez DO at OR [facility] Lens Left: Eye 11/12/2025 CNA0T0 / [id number] 136 / Viatorr Tips Endoprosthesis 8-10 Mm X 8cm / 2cm Implanted:Qty: 1 on 10/07/2020 by Go Alvarado MD at [facility] Right: Abdomen 03/03/2023 [id number] / / [id number] Description:Viatorr TIPS End oprosthesis 8-10 mm x 8cm / 2cm, Manufactored by [employer] [employer] [email or web address] Syr Pf 2ml Embospheres 100-300 - [id number] Implanted:Qty: 1 on 04/18/2021 by Kevin Lim DO at OR [facility] Left: Abdomen [employer] [id number] 11/25/2023 S220GH / / [id number] -[id number] Lipiodol Injection - [id number] Implanted:Qty: 1 on 03/28/2022 at [facility] [employer] 03/01/2023 25244-45 -2 / / [id number] Syr Pf 2ml Embospheres 100-300 - [id number] Implanted:Qty: 1 on 03/28/2022 at [facility] [employer] [id number] 08/31/2024 S220 / / [id number] -5 Clareon Iol Aspheric Hydrophobic Acrylic Iol Implanted:Qty: 1 on 04/02/2023 by Cody Gonzalez DO at OR [facility] Right: Eye JAZMIN 11/12/2025 CNA0T0 / [id number] / Syr Pf 2ml Embospheres 100-300 - [id number] Implanted:Qty: 1 on 06/11/2024 at [facility] [employer] [id number] 01/02/2027 [facility] / / [id number] -5 Cath Diag Cobra 2 [id number] - [id number] Implanted:Qty: 1 on 06/11/2024 at [facility] [employer] [id number] 10/06/2026 [id number] / / [id number] documented as of this encounter Procedures Procedure Name Priority Date/Time Associated Diagnosis Comments OUTSIDE LAB RESULTS 11/17/2024 OUTSIDE LAB RESULTS 11/17/2024 documented in this encounter Results * OUTSIDE LAB RESULTS (11/17/2024) 11/17/2024 [facility] Final Resu lt * OUTSIDE LAB RESULTS (11/17/2024) 11/17/2024 [facility] Final Resu lt documented in this encounter Advance Directives Documents on File Type Date Recorded Patient Network Engineering Advisor Expl anation Advance Directives and Living Will 12/11/2022 ADVANCE DIRECTIVE / LIVING WILL LIVING WILL Power of Ammunition Storage Superintendent 12/11/2022 POWER OF A TTORNEY * Full [...] Discussed due to patient's condition Care Teams Philosophy Lecturer Relationship Specialty Start Date End Date Kristen Vences DO [address] [place] [address] PCP - General Family Medicine 05/19/24 documented as of this encounter
--- OUTSIDE RECORDS SUMMARY | 2024-12-04 16:52 | External Medical Summary | Summary of Care ---
Author Name Unknown Organization [facility] Address [address] [facility] [place] [address] Phone [phone] Care Team Providers Care Leaf Sucker Operator Name Role Phone Kristen Vences DO Primary Care Provider [phone] Encounter Details Date Type Department Care Team (Late st Contact Info) Description 11/04/2024 Orders Only Family Practice [facility] [address] [place] [address] Kristen Vences DO [address] [place] [address] Cirrhosis of liver with ascites, unspecified hepatic cirrhosis type (HCC) Allergies No known active allergiesdocumented as of this encounter (statuses as of 11/04/2024) Medications OneTouch Verio In Vitro Strip (Glucose Blood)Indications:T ype 2 diabetes mellitus with hemoglobin A1c goal of less than 7.0% (HCC) Use to test blood sugars 3 times a day 300 Strip 5 09/27/20 Active Additional Information Patient not taking.Reported on 08/14/2024 BD Pen Needle Elizabeth 2nd Gen 32G [...] Probiotic (Lactobacillus) Oral Capsule 1 Capsule. 05/17/20 Active oxygen IN GAS Use 2 L/min(Oxygen) [...] nausea 90 Tablet 3 08/30/20 23 Active Allopurinol 100 MG Oral Tablet (Zyloprim)Indicatio ns:Gout of big toe Take 2 Tablets by mouth in the morning. 180 Tablet 2 10/28/20 Active Additional Information Patient taking differently:200 mg Oral Daily(AM),Takes 1 in AM and 1 in PM, Reported on 08/13/2024 Lantus 100 UNIT/ML Subcutaneous Solution Inject 25 Units under the skin every evening. With dinner 3 Each 5 11/14/20 23 Active rifAXIMin 550 MG Oral Tablet (Xifaxan)Indication s:Cirrhosis of liver (HCC),Hepatic encephalopathy (HCC) Take 1 Tablet by mouth in the morning and 1 Tablet before bedtime. 180 Tablet 5 11/26/20 23 Active DULoxetine HCl 30 MG Oral Capsule Delayed Release Particles (Cymbalta) Take 1 Capsule by mouth in the morning. 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 90 Tablet 3 10/02/20 24 Active documented as of this encounter (statuses as of 11/04/2024) Active Problems Problem Noted Date Diagnosed Date [...] as of this encounter (statuses as of 11/04/2024) Resolved Problems Problem Noted Date Diagnosed Date [...] as of this encounter (statuses as of 11/04/2024) Immunizations Name Administration Dates Next Due COVID-19 mRNA, LNP-s, No Pre serve, 2-Dose Series (1001 Menus) 03/08/2021,02/15/2021 COVID-19, MRNA-LNP, PF, 50 M CG/0.5 mL, 12 YRS AND ABOVE, IM (MODERNA-Spikevax) 10/18/2023 HepA Inact/HepB Recomb>=18yrs old 12/04/2019,04/2019,05/20/2019 11/19/2019 PPD 06/18/2017, 3,01/09/2012,06/2011 Pneumococcal Conjugate Vacc, 13 Valent (Prevnar) 05/01/2017 Pneumococcal Polysaccharide PPV23 (Pneumovax) 09/14/2022,08/28/2022,10/25/2015,07/02 Season Influenza, Quad, PF, Adjuvanted, 65+ Yrs, IM (FLUAD) 10/07/2020(Deferred: Patient Refused - pt says he already had his shot last month at [facility] and [facility]inley Cobian [...] Care Team (Late st Contact Info) Description 11/09/2024 2:30 PM EST Office Visit Gastroenterology, [facility] [address] [place] [address] Lamar Tatum CRNP [address] [place] [address] 01/13/2025 2:00 PM EST Office Visit Hematology/Oncology [facility] [address] [facility] [place] [phone] Jennifer Ramires MD [address] [facility] [place] [address] 01/26/2025 3:15 PM EST Office Visit Urology, [facility] [address] [facility] [place] [address] Frank Peraza MD [address] [place] [address] 03/29/2025 2:45 PM EDT Office Visit Dermatology [facility] [address] [facility] [place] [address] Francisco Watson MD [address] [facility] [place] [address] Scheduled Procedures Name Priority Associated Diagnoses Date/Ti [...] Additional history exists CKD PHOS USE SMARTSET 15497 05/19/202505/02, 05/08/2024, 04/07/2024, Additional history exists Diabetic Foot Exam 05/19/2025 05/19/2024, 0 03/06/2023, 01/03/2022, Additional history exists Depression Screening 08/10/2025 08/10/2024 CKD HGB USE SMARTSET 86158 11/02/202511/03, 11/02/2024, 11/02/2024, Additional history exists Sigmoidoscopy 04/12/2027 04/12/2022 [...] this encounter Medical Devices Implanted Type Area Administrative Support Technician Device Identifier Shelf Expiration Date Model / Serial / Lot Clareon Iol Aspheric Hydrophobic Acrylic Iol Implanted:Qty: 1 on 04/23/2023 by Cody Gonzalez DO at OR [facility] Left: Eye 11/12/2025 CNA0T0 / [id number] / Viatorr Tips Endoprosthesis 8-10 Mm X 8cm / 2cm Implanted:Qty: 1 on 10/07/2020 by Go Alvarado MD at [facility] Right: Abdomen 03/03/2023 [id number] / / [id number] Description:Viatorr TIPS End oprosthesis 8-10 mm x 8cm / 2cm, Manufactored by [employer] [email or web address] Syr Pf 2ml Embospheres 100-300 - [id number] Implanted:Qty: 1 on 04/18/2021 by Kevin Lim DO at OR [facility] Left: Abdomen [employer] [id number] 11/25/2023 S220GH / / [id number] Lipiodol Injection - [id number] Implanted:Qty: 1 on 03/28/2022 at [facility] [employer] 03/01/2023 09081-12 01-2 / / [id number] Syr Pf 2ml Embospheres 100-300 - [id number] Implanted:Qty: 1 on 03/28/2022 at [facility] [employer] [id number] 08/31/2024 S220GH / / [id number] -5 Clareon Iol Aspheric Hydrophobic Acrylic Iol Implanted:Qty: 1 on 04/02/2023 by Cody Gonzalez DO at OR [facility] Right: Eye JAZMIN 11/12/2025 CNA0T0 / [id number] / Syr Pf 2ml Embospheres 100-300 - [id number] Implanted:Qty: 1 on 06/11/2024 at [facility] [employer] [id number] 01/02/2027 S220GH / / [id number] -[id number] Cath Diag Cobra 2 2bvp37hb - [id number] Implanted:Qty: 1 on 06/11/2024 at [facility] [employer] [id number] 10/06/2026 [id number] / / [id number] documented as of this encounter Procedures Procedure Name Priority Date/Time Associated Diagnosis Comments IR PARACENTESIS Routine 11/03/2024 Cirrhosis of liver with ascites, unspecified hepatic cirrhosis type (HCC) CHEMISTRY-OUTSIDE Routine 11/03/2024 documented in this encounter Results * (ABNORMAL) CHEMISTRY-OUTSIDE (11/03/2024) Not all results display below - see scan for full detail OUTSIDE LAB (SEE SCANNED REPORT) Comment:SCAN INCLUDES - TASNEEM T, CC/DIFF, PT INR, PTT, CBCD, GRAM STAIN CREATININE OUTSIDE L AB (SEE SCANNED REPORT) [...] LAB OUTSIDE LAB (SEE SCANNED REPORT) HEMOGLOBIN, [id number] LAB OUTSIDE LAB (SEE SCANNED REPORT) PHOSPHORUS-OUTSID E LAB OUTSIDE LAB (SEE SCANNED REPORT) PTH-OUTSIDE LAB OUTS CONNOR LAB (SEE SCANNED REPORT) MICROALBUMIN RATIO-OUTSIDE LAB OUTSIDE LA B (SEE SCANNED REPORT) PROTEIN, UA-OUTSIDE LAB OUTSIDE LAB (SEE SCANNED REPORT) HGB 7.5(A) 14.0 - 18.0 G/DL OUTSIDE LAB (SEE SCANNED REPORT) 11/03/2024 [facility] Final Resu lt OUTSIDE LAB (SEE SCANNED REPORT) * IR PARACENTESIS (11/03/2024) Anatomical Region Laterality Modality Any Other 11/03/2024 us Lamar Tatum JEFF RAD SPECIAL PROCEDURES Fin al Result documented in this encounter Visit Diagnoses Diagnosis Cirrhosis of liver with ascites, unspecified hepatic cirrhosis type (HCC) documented in this encounter Advance Directives Documents on File Type Date Recorded Patient Loading Machine Operator Helper Expl anation Advance Directives and Living Will 12/11/2022 ADVANCE DIRECTIVE / LIVING WILL LIVING WILL Power of Wildlife Ecology Professor 12/11/2022 POWER OF A TTORNEY * Full [...] Discussed due to patient's condition Care Teams Leaf Sucker Operator Relationship Specialty Start Date End Date Kirsten Vences DO [address] [place] [address] PCP - General Family Medicine 05/19/24 documented as of this encounter
--- OUTSIDE RECORDS SUMMARY | 2024-12-04 16:52 | External Medical Summary | Summary of Care ---
Author Name Unknown Organization [facility] Address [address] [facility] [place] [address] Phone [phone] Care Team Providers Care Grass Farm Laborer Name Role Phone Kristen Vences DO Primary Care Provider [phone] Encounter Details Date Type Department Care Team (Late st Contact Info) Description 11/03/2024 Result Scan Unspecified Department Kristen Vences DO [address] [place] [phone] <No scans attached> Allergies No known active allergiesdocumented as of this encounter (statuses as of 11/04/2024) Medications OneTouch Verio In Vitro Strip (Glucose Blood)Indications:T ype 2 diabetes mellitus with hemoglobin A1c goal of less than 7.0% ([facility]) Use to test blood sugars 3 [...] before and after paracentesis 100 mL 08/22/20 Active Metoclopramide HCl 5 MG Oral Tablet [...] mRNA, LNP-s, No Pre serve, 2-Dose Series ([employer]) 03/08/2021,02/15/2021 COVID-19, MRNA-LNP, PF, 50 M CG/0.5 [...] of Assessment Author No 05/08/2024 6:04 PM Guzman Huggins RN * Are you blind or do you have serious difficulty seeing, even when wearing glasses? Answer Date of Assessment Author No 05/08/2024 6:04 PM Mg Huggins RN * Do you have serious difficulty walking or climbing stairs? (5 years old or older) Answer Date of Assessment Author Yes 05/08/2024 6:04 PM Mg uHggins RN * Do you have difficulty dressing [...] 11/09/2024 2:30 PM EST Office Visit Gastroenterology, [facility] [address] [place] [address] Lamar Tatum CRNP [address] [place] [address] 01/13/2025 2:00 PM EST Office Visit Hematology/Oncology [facility] [place] [address] [place] [phone] Jennifer Ramires MD [address] [place] [address] 01/26/2025 3:15 PM EST Office Visit Urology, [facility] [address] [place] [address] Frank Peraza MD [address] [place] [address] 03/29/2025 2:45 PM EDT Office Visit Dermatology [facility] [address] [place] [address] Francisco Watson MD [address] [place] [address] Scheduled Procedures Name Priority Associated Diagnoses Date/Ti [...] Additional history exists CKD PHOS USE SMARTSET 04201 05/19/202505/02, 05/08/2024, 04/07/2024, Additional history exists Diabetic Foot Exam 05/19/2025 05/19/2024, 0 03/06/2023, 01/03/2022, Additional history exists Depression Screening 08/10/2025 08/10/2024 CKD HGB USE SMARTSET 82218 11/02/202511/03, 11/02/2024, 11/02/2024, Additional history exists Sigmoidoscopy [...] 04/23/2023 by Cody Gonzalez, DO at OR [facility] Left: Eye 11/12/2025 CNA0T0 / [id number] 136 / Viatorr Tips Endoprosthesis 8-10 Mm X 8cm / 2cm Implanted:Qty: 1 on 10/07/2020 by Go Alvarado MD at [facility] Right: Abdomen 03/03/2023 [id number] / / [id number] Description:Viatorr TIPS End oprosthesis 8-10 mm x 8cm / 2cm, Manufactored by [employer] [email or web address] Syr Pf 2ml Embospheres 100-300 - [id number] Implanted:Qty: 1 on 04/18/2021 by Kevin Lim DO at OR [facility] Left: Abdomen [employer] [id number] 11/25/2023 S220GH / / [id number] -5 Lipiodol Injection - [id number] Implanted:Qty: 1 on 03/28/2022 at [facility] [employer] 03/01/2023 89111-58 01-2 / / [id number] Syr Pf 2ml Embospheres 100-300 - [id number] Implanted:Qty: 1 on 03/28/2022 at [facility] [employer] [id number] 08/31/2024 S220GH / / [id number] -5 Clareon Iol Aspheric Hydrophobic Acrylic Iol Implanted:Qty: 1 on 04/02/2023 by Cody Gonzalez DO at OR [facility] Right: Eye JAZMIN 11/12/2025 CNA0T0 / [id number] 139 / Syr Pf 2ml Embospheres 100-300 - [id number] Implanted:Qty: 1 on 06/11/2024 at [facility] [employer] [id number] 01/02/2027 S220GH / / [id number] -[id number] Cath Diag Cobra 2 3xsy11ii - [id number] Implanted:Qty: 1 on 06/11/2024 at [facility] [employer] [id number] 10/06/2026 [id number] / / [id number] documented as of this encounter Procedures Procedure Name Priority Date/Time Associated Diagnosis Comments OUTSIDE LAB RESULTS 11/03/2024 documented in this encounter Results * OUTSIDE LAB RESULTS (11/03/2024) 11/03/2024 Kristen Vences DO LABORATORY Final Resul t documented in this encounter Advance Directives Documents on File Type Date Recorded Patient Instructor Modeling Expl anation Advance Directives and Living Will 12/11/2022 ADVANCE DIRECTIVE / LIVING WILL LIVING WILL Power of Wet Room Worker 12/11/2022 POWER OF A TTORNEY * Full [...] Discussed due to patient's condition Care Teams Grass Farm Laborer Relationship Specialty Start Date End Date Kristen Vences DO [address] [place] [address] PCP - General Family Medicine 05/19/24 documented as of this encounter
--- OUTSIDE RECORDS SUMMARY | 2024-12-04 16:52 | External Medical Summary | Summary of Care ---
Author Name Unknown Organization [facility] [address] [facility] [address] Phone [phone] Care Team Providers Care Human Services Instructor Name Role Phone Kristen Vences DO Primary Care Provider [phone] Encounter Details Date Type Department Care Team (Late st Contact Info) Description 11/03/2024 Result Scan Unspecified Department Lamar Tatum CRNP [address] [place] [address] <No scans attached> Allergies No known active allergiesdocumented as of this encounter (statuses as of 11/05/2024) Medications OneTouch Verio In Vitro Strip (Glucose [...] Tablet before bedtime. 180 Tablet 5 11/26/20 Active DULoxetine HCl 30 MG Oral Capsule [...] as of this encounter (statuses as of 11/05/2024) Active Problems Problem Noted Date Diagnosed Date [...] as of this encounter (statuses as of 11/05/2024) Resolved Problems Problem Noted Date Diagnosed Date [...] as of this encounter (statuses as of 11/05/2024) Immunizations Name Administration Dates Next Due COVID-19 mRNA, LNP-s, No Pre serve, 2-Dose Series ([employer]) 03/08/2021,02/15/2021 COVID-19, MRNA-LNP, PF, 50 M CG/0.5 mL, 12 YRS AND ABOVE, IM (MODERNA-Spikevax) 10/18/2023 HepA Inact/HepB Recomb>=18yrs old 12/04/2019,04/2019,05/20/2019 11/19/2019 PPD 06/18/2017, 3,01/09/2012,06/2011 Pneumococcal Conjugate Vacc, 13 Valent (Prevnar) 05/01/2017 Pneumococcal Polysaccharide PPV23 (Pneumovax) 09/14/2022,08/28/2022,10/25/2015,07/02 Season Influenza, Quad, PF, Adjuvanted, 65+ Yrs, IM (FLUAD) 10/07/2020(Deferred: Patient Refused - pt says he already had his shot last month at [facility] Castellanosc[facility] and Mckinley Cobian made aware) Seasonal Influenza [...] 11/09/2024 2:30 PM EST Office Visit Gastroenterology, [facility] [address] [address] [address] Lamar Tatum CRNP [address] [place] [address] 01/13/2025 2:00 PM EST Office Visit Hematology/Oncology [facility] [place] [address] [place] [phone] Jennifer Ramires MD [address] [place] [address] 01/26/2025 3:15 PM EST Office Visit Urology, [facility] [address] [place] [address] Frank Peraza MD [address] [place] [address] 03/29/2025 2:45 PM EDT Office Visit Dermatology [facility] [address] [facility] [place] [address] Francisco Watson MD [address] [place] [address] Scheduled Procedures Name Priority Associated Diagnoses Date/Ti [...] Additional history exists CKD PHOS USE SMARTSET 39618 05/19/202505/02, 05/08/2024, 04/07/2024, Additional history exists Diabetic Foot Exam 05/19/2025 05/19/2024, 0 03/06/2023, 01/03/2022, Additional history exists Depression Screening 08/10/2025 08/10/2024 CKD HGB USE SMARTSET 34518 11/03/202511/03, 11/02/2024, 11/02/2024, Additional history exists Sigmoidoscopy 04/12/2027 [...] this encounter Medical Devices Implanted Type Area Counsellors Device Identifier Shelf Expiration Date Model / Serial / Lot Clareon Iol Aspheric Hydrophobic Acrylic Iol Implanted:Qty: 1 on 04/23/2023 by Cody Gonzalez, DO at OR [facility] Left: Eye 11/12/2025 CNA0T0 / [id number] 136 / Viatorr Tips Endoprosthesis 8-10 Mm X 8cm / 2cm Implanted:Qty: 1 on 10/07/2020 by Go Alvarado MD at [facility] Right: Abdomen 03/03/2023 [id number] / / [id number] Description:Viatorr TIPS End oprosthesis 8-10 mm x 8cm / 2cm, Manufactored by [employer] [place] [employer] [email or web address] Syr Pf 2ml Embospheres 100-300 - [id number] Implanted:Qty: 1 on 04/18/2021 by Kevin Lim DO at OR [facility] Left: Abdomen [employer] [id number] 11/25/2023 S220GH / / [id number] -[id number] Lipiodol Injection - [id number] Implanted:Qty: 1 on 03/28/[address] [facility] [employer] 03/01/2023 61824-98 01-2 / / [id number] Syr Pf 2ml Embospheres 100-300 - [id number] Implanted:Qty: 1 on 03/28/[address] [facility] [employer] [id number] 08/31/2024 S220GH / / [id number] -5 Clareon Iol Aspheric Hydrophobic Acrylic Iol Implanted:Qty: 1 on 04/02/2023 by Cody Gonzalez DO at OR [facility] Right: Eye JAZMIN 11/12/2025 CNA0T0 / [id number] 139 / Syr Pf 2ml Embospheres 100-300 - [id number] Implanted:Qty: 1 on 06/11/[address] [facility] [employer] [id number] 01/02/2027 S220GH / / [id number] -[id number] Cath Diag Cobra 2 7nyl15qh - [id number] Implanted:Qty: 1 on 06/11/[address] [facility] [employer] [id number] 10/06/2026 [id number] / / [id number] documented as of this encounter Procedures Procedure Name Priority Date/Time Associated Diagnosis Comments OUTSIDE LAB RESULTS 11/03/2024 documented in this encounter Results * OUTSIDE LAB RESULTS (11/03/2024) 11/03/2024 us Lamar Tatum JEFF LABORATORY Final Resu lt documented in this encounter Advance Directives Documents on File Type Date Recorded Patient Landscape Horticulture Instructor Expl anation Advance Directives and Living Will 12/11/2022 ADVANCE DIRECTIVE / LIVING WILL LIVING WILL Power of Branch Office Administrator 12/11/2022 POWER OF A TTORNEY * Full [...] Discussed due to patient's condition Care Teams Human Services Instructor Relationship Specialty Start Date End Date Kristen Vences DO [address] [place] [address] PCP - General Family Medicine 05/19/24 documented as of this encounter
--- OUTSIDE RECORDS SUMMARY | 2024-12-04 16:52 | External Medical Summary | Summary of Care ---
Author Name Unknown Organization [facility] Address [address] [place] [address] Phone [phone] Care Team Providers Care Book Publisher Name Role Phone Kristen Vences DO Primary Care Provider +1 [phone] Reason for Visit * Reason Onset Date Comments Appointment 11/09/2024 egd Encounter Details Date Type Department Care Team (Late st Contact Info) Description 11/09/2024 Telephone Gastroenterology, [facility] [address] [facility] [place] [address] Specified, Zz No Resource [address] [place] [address] Appointment (egd) Allergies No known active allergiesdocumented as of this encounter (statuses as of 11/09/2024) Medications OneTouch Verio In Vitro Strip (Glucose [...] 23 Active Allopurinol 100 MG Oral Tablet (Zyloprim)Indicati ons:Gout of big toe Take 2 Tablets by mouth in the morning. 180 Tablet 2 10/28/20 Active Additional Information Patient taking differently:200 mg Oral Daily(AM),Takes 1 in AM and 1 in PM, Reported on 11/09/2024 Lantus 100 UNIT/ML Subcutaneous Solution Inject 25 [...] Patient taking differently: Once daily, Reported on 11/09/2024 Kristalose 10 GM Oral Packet (Lactulose)Indicat ions:Cirrhosis of liver without ascites, unspecified hepatic cirrhosis type (HCC) DISSOLVE & TAKE 1 PACKET BY MOUTH TWICE DAILY 60 Each 09/04/20 Active Additional Information Patient taking differently: Taking once daily, Reported on 11/09/2024 Furosemide 20 MG Oral Tablet (Lasix) 2 tabs by mouth once daily 60 Tablet 5 11/09/20 24 Active documented as of this encounter (statuses as of 11/09/2024) Active Problems Problem Noted Date Diagnosed Date [...] as of this encounter (statuses as of 11/09/2024) Resolved Problems Problem Noted Date Diagnosed Date [...] as of this encounter (statuses as of 11/09/2024) Immunizations Name Administration Dates Next Due COVID-19 mRNA, LNP-s, No Pre serve, 2-Dose Series (Active Storage) 03/08/2021,02/15/2021 COVID-19, MRNA-LNP, PF, 50 M CG/0.5 mL, 12 YRS AND ABOVE, IM (MODERNA-Spikevax) 10/18/2023 HepA Inact/HepB Recomb>=18yrs old 12/04/2019,04/2019,05/20/2019 11/19/2019 PPD 06/18/2017, 3,01/09/2012,06/2011 Pneumococcal Conjugate Vacc, 13 Valent (Prevnar) 05/01/2017 Pneumococcal Polysaccharide PPV23 (Pneumovax) 09/14/2022,08/28/2022,10/25/2015,07/02 Season Influenza, Quad, PF, Adjuvanted, 65+ Yrs, IM (FLUAD) 10/07/2020(Deferred: Patient Refused - pt says he already had his shot last month at [facility] [employer] [facility] [...] Miscellaneous Notes * Telephone Encounter - Jocelyne Lockhart OSA - 11/09/2024 3:27 PM EST Egd 11/26 * Telephone Encounter - Jenna Morse OSA - 11/09/2024 3:03 PM EST Pt seen with lamar baugh in office and is needing egd scheduled at [facility] or please call pt to schedule the procedure. documented in this encounter Plan of Treatment Upcoming Encounters Date Type Department Care Team (Latest Contact Info) Description 11/26/2024 9:03 AM EST Hospital Encounter OR [facility], Operating Room, [facility] - 4th Floor [address] [facility] [place] [phone] David Duncan MD [address] [place] [address] 11/26/2024 9:03 AM EST - 11/26/2024 9:43 AM EST Surgery OR [facility], Operating Room, [facility] - 4th Floor [address] [facility] [place] [phone] David Duncan MD [address] [place] [address] ESOPHAGOGASTRODUODENOSCOPY (EGD), FLEXIBLE, TRANSORAL, DIAGNOSTIC 01/13/2025 2:00 PM EST Office Visit Hematology/Oncol o[facility] [address] [facility] [place] [phone] Jennifer Ramires MD [address] [facility] [place] [address] 01/26/2025 3:15 PM EST Office Visit Urology, [facility] [address] [place] [address] Frank Peraza MD [address] [place] [address] 02/10/2025 3:00 PM EDT Office Visit Gastroenterology , [facility] [address] [place] [address] Lamar Tatum CRNP [address] [place] [address] 03/29/2025 2:45 PM EDT Office Visit Dermatology [facility] [place] [address] [facility] [place] [address] Francisco Watson MD [address] [facility] [place] [address] Scheduled Procedures Name Priority Associated Diagnoses Date/Ti [...] Additional history exists CKD PHOS USE SMARTSET 82967 05/19/202505/02, 05/08/2024, 04/07/2024, Additional history exists Diabetic Foot Exam 05/19/2025 05/19/2024, 0 03/06/2023, 01/03/2022, Additional history exists Depression Screening 08/10/2025 08/10/2024 CKD HGB USE SMARTSET 29250 11/03/202511/03, 11/02/2024, 11/02/2024, Additional history exists Sigmoidoscopy [...] this encounter Medical Devices Implanted Type Area Plastic Finisher Device Identifier Shelf Expiration Date Model / Serial / Lot Clareon Iol Aspheric Hydrophobic Acrylic Iol Implanted:Qty: 1 on 04/23/2023 by Cody Gonzalez DO at OR [facility] Lens Left: Eye 11/12/2025 CNA0T0 / [id number] / Viatorr Tips Endoprosthesis 8-10 Mm X 8cm / 2cm Implanted:Qty: 1 on 10/07/2020 by Go Alvarado MD at [facility] Right: Abdomen 03/03/2023 [id number] / / [id number] Description:Viatorr TIPS End oprosthesis 8-10 mm x 8cm / 2cm, Manufactored by [employer] [email or web address] Syr Pf 2ml Embospheres 100-300 - [id number] Implanted:Qty: 1 on 04/18/2021 by Kevin Lim DO at OR [facility] Left: Abdomen [employer] [id number] 11/25/2023 S220GH / / [id number] Lipiodol Injection - [id number] Implanted:Qty: 1 on 03/28/2022 at [facility] [employer] 03/01/2023 87171-06 01-2 / / [id number] Syr Pf 2ml Embospheres 100-300 - [id number] Implanted:Qty: 1 on 03/28/2022 at [facility] [employer] [id number] 08/31/2024 S220GH / / [id number] -[id number] Clareon Iol Aspheric Hydrophobic Acrylic Iol Implanted:Qty: 1 on 04/02/2023 by Cody Gonzalez DO at OR [facility] Right: Eye JAZMIN 11/12/2025 CNA0T0 / [id number] / Syr Pf 2ml Embospheres 100-300 - [id number] Implanted:Qty: 1 on 06/11/2024 at [facility] [employer] [id number] 01/02/2027 S220GH / / [id number] -[id number] Cath Diag Cobra 2 6ddu24pt - [id number] Implanted:Qty: 1 on 06/11/2024 at [facility] [employer] [id number] 10/06/2026 [id number] / / [id number] documented as of this encounter Advance Directives Documents on File Type Date Recorded 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
--- OUTSIDE RECORDS SUMMARY | 2024-12-04 16:52 | External Medical Summary | Summary of Care ---
Author Name Unknown Organization [facility] Address [address] [facility] [place] [place] [address] Phone [phone] Care Team Providers Care Youth Probation Officer Name Role Phone Nimco Vences DO Primary Care Provider +1 [phone] Reason for Visit * Reason Comments eRx-Medication Refill Encounter Details Date Type Department Care Team (Late st Contact Info) Description 11/15/2024 Refill General Internal Medicine [facility] 200 [facility] [place] [address] Francisco Cisse MD 200 [facility] [place] [address] Gout of big toe Allergies No known active allergiesdocumented as of this encounter (statuses as of 11/16/2024) Medications OneTouch Verio In Vitro Strip (Glucose Blood)Indications :Type 2 diabetes mellitus with hemoglobin A1c goal of less than 7.0% ([facility]) Use to test blood sugars 3 times a day 300 Strip 5 Active BD Pen Needle Elizabeth 2nd Gen [...] as of this encounter (statuses as of 11/16/2024) Active Problems Problem Noted Date Diagnosed Date [...] as of this encounter (statuses as of 11/16/2024) Resolved Problems Problem Noted Date Diagnosed Date [...] as of this encounter (statuses as of 11/16/2024) Immunizations Name Administration Dates Next Due COVID-19 mRNA, LNP-s, No Pre serve, 2-Dose Series (Jingshi Wanwei) 03/08/2021,02/15/2021 COVID-19, MRNA-LNP, PF, 50 M CG/0.5 [...] encounter Miscellaneous Notes * Telephone Encounter - Tushar Beavers [facility] - 11/16/2024 3:56 PM ESTSigned Prescriptions: Disp Refills DULoxetine HCl 30 MG Oral Capsule Delayed *90 Cap*2 Sig: Take 1 capsule by mouth in the morningAuthorizing Provider: NIMCO VENCESOrdering User: TUSHAR BEAVERS Allopurinol 100 MG Oral Tablet (Zyloprim) 180 Ta*2 Sig: TAKE 2 TABLETS BY MOUTH IN THE MORNINGAuthorizing Provider: NIMCO VENCES User: TUSHAR BEAVERS documented in this encounter Plan of Treatment Upcoming Encounters Date Type Department Care Team (Latest Contact Info) Description 11/26/2024 9:03 AM EST Hospital Encounter OR [facility], Operating Room, [facility] - 4th Floor 400 [place] [phone] David Duncan MD [facility] [place] [address] 11/26/2024 9:03 AM EST - 11/26/2024 9:43 AM EST Surgery OR [facility], Operating Room, [facility] - 4th Floor 400 [place] [phone] David Duncan MD [address] [place] [address] ESOPHAGOGASTRODUODENOSCOPY (EGD), FLEXIBLE, TRANSORAL, DIAGNOSTIC 01/13/2025 2:00 PM EST Office Visit Hematology/Oncol ogy [facility] [place] [address] [place] [address] Jennifer Ramires MD [address] [place] [address] 01/26/2025 3:15 PM EST Office Visit Urology, [facility] [address] [place] [address] Frank Peraza MD [address] [place] [address] 02/10/2025 3:00 PM EDT Office Visit Gastroenterology , [facility] [address] [place] [address] Lamar Tatum CRNP [address] [place] [address] 03/29/2025 2:45 PM EDT Office Visit Dermatology [facility] 200 [facility] [place], [place] [address] Francisco Watson MD [address] [facility] [place] [address] Scheduled Procedures Name Priority Associated Diagnoses Date/Ti [...] Additional history exists CKD PHOS USE SMARTSET 49379 05/19/202505/02, 05/08/2024, 04/07/2024, Additional history exists Diabetic Foot Exam 05/19/2025 05/19/2024, 0 03/06/2023, 01/03/2022, Additional history exists Depression Screening 08/10/2025 08/10/2024 CKD HGB USE SMARTSET 71134 11/03/202511/03, 11/02/2024, 11/02/2024, Additional history exists Sigmoidoscopy [...] Medical Devices Implanted Type Area Real Estate Consultant Device Identifier Shelf Expiration Date Model / Serial / Lot Clareon Iol Aspheric Hydrophobic Acrylic Iol Implanted:Qty: 1 on 04/23/2023 by Cody Gonzalez DO at OR [facility] Lens Left: Eye 11/12/2025 CNA0T0 / [id number] 136 / Viatorr Tips Endoprosthesis 8-10 Mm X 8cm / 2cm Implanted:Qty: 1 on 10/07/2020 by Go Alvarado MD at [facility] Right: Abdomen 03/03/2023 [id number] / / [id number] Description:Viatorr TIPS End oprosthesis 8-10 mm x 8cm / 2cm, Manufactored by [employer]. [email or web address] Syr Pf 2ml Embospheres 100-300 - [id number] Implanted:Qty: 1 on 04/18/2021 by Kevin Lim DO at OR [facility] Left: Abdomen [employer] [id number] 11/25/2023 S220GH / / [id number] -5 Lipiodol Injection - [id number] Implanted:Qty: 1 on 03/28/2022 at [facility] [employer] 03/01/2023 30984-10 01-2 / / [id number] Syr Pf 2ml Embospheres 100-300 - [id number] Implanted:Qty: 1 on 03/28/2022 at [facility] [employer] [id number] 08/31/2024 S220GH / / [id number] -5 Clareon Iol Aspheric Hydrophobic Acrylic Iol Implanted:Qty: 1 on 04/02/2023 by Cody Gonzalez DO at OR [facility] Right: Eye JAZMIN 11/12/2025 CNA0T0 / [id number] 139 / Syr Pf 2ml Embospheres 100-300 - [id number] Implanted:Qty: 1 on 06/11/2024 at [facility] [employer] [id number] 01/02/2027 S220GH / / [id number] -5 Cath Diag Cobra 2 2ipq04ny - [id number] Implanted:Qty: 1 on 06/11/2024 at [facility] [employer] [id number] 10/06/2026 [id number] / / [id number] documented as of this encounter Visit Diagnoses Diagnosis Gout of big toe Acute gouty arthropathy Esophageal varices without bleeding, unspecified esophageal varices type (HCC) documented in this encounter Advance Directives Documents on File Type Date Recorded 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
--- OUTSIDE RECORDS SUMMARY | 2024-12-04 16:52 | External Medical Summary | Summary of Care ---
Author Name Unknown Organization [facility] Address [address] [place] [address] Phone [phone] Care Team Providers Care Crucible Furnace Tender Name Role Phone Kristen Vences DO Primary Care Provider [phone] Reason for Visit * Reason Onset Date Comments Appointment 11/09/2024 egd Encounter Details Date Type Department Care Team (Late st Contact Info) Description 11/09/2024 Telephone Gastroenterology, [facility] [address] [facility] [place] [address] Specified, Zz No Resource [address] [place] [address] Appointment (egd) Allergies No known [...] mRNA, LNP-s, No Pre serve, 2-Dose Series (Via [employer]) 03/08/2021,02/15/2021 COVID-19, MRNA-LNP, PF, 50 M CG/0.5 mL, 12 YRS AND ABOVE, IM (MODERNA-Spikevax) 10/18/2023 HepA Inact/HepB Recomb>=18yrs old 12/04/2019,04/2019,05/20/2019 11/19/2019 PPD 06/18/2017, 3,01/09/2012,06/2011 Pneumococcal Conjugate Vacc, 13 Valent (Prevnar) 05/01/2017 Pneumococcal Polysaccharide PPV23 (Pneumovax) 09/14/2022,08/28/2022,10/25/2015,07/02 Season Influenza, Quad, PF, Adjuvanted, 65+ Yrs, IM (FLUAD) 10/07/2020(Deferred: Patient Refused - pt says he already had his shot last month at [facility] [employer] [facility] [employer] [...] encounter Miscellaneous Notes * Telephone Encounter - Jenna Morse OSA - 11/09/2024 3:03 PM EST Pt seen with lamar today in office and is needing egd scheduled at [facility] or please call pt to schedule the procedure. documented in this encounter Plan of Treatment Upcoming Encounters Date Type Department Care Team (Late st Contact Info) Description 01/13/2025 2:00 PM EST Office Visit Hematology/Oncology [address] [place], [place] [address] Jennifer Ramires MD 200 [facility] [place] [address] 01/26/2025 3:15 PM EST Office Visit Urology, [facility] [address] [place] [address] Frank Peraza MD [address] [place] [address] 02/10/2025 3:00 PM EDT Office Visit Gastroenterology, [facility] 132 [place] [address] Lamar Tatum CRNP 132 [place] [address] 03/29/2025 2:45 PM EDT Office Visit Dermatology [facility] 200 [facility] [place], [place] [address] Francisco Watson MD [address] [facility] [place] [address] Scheduled Procedures Name Priority Associated Diagnoses Date/Ti [...] Additional history exists CKD PHOS USE SMARTSET 14948 05/19/202505/02, 05/08/2024, 04/07/2024, Additional history exists Diabetic Foot Exam 05/19/2025 05/19/2024, 0 03/06/2023, 01/03/2022, Additional history exists Depression Screening 08/10/2025 08/10/2024 CKD HGB USE SMARTSET 54828 11/03/202511/03, 11/02/2024, 11/02/2024, Additional history exists Sigmoidoscopy [...] encounter Medical Devices Implanted Type Area Director Business Device Identifier Shelf Expiration Date Model / Serial / Lot Clareon Iol Aspheric Hydrophobic Acrylic Iol Implanted:Qty: 1 on 04/23/2023 by Cody Gonzalez DO at OR [facility] Lens Left: Eye 11/12/2025 CNA0T0 / [id number] 136 / Viatorr Tips Endoprosthesis 8-10 Mm X 8cm / 2cm Implanted:Qty: 1 on 10/07/2020 by Go Alvarado MD at [facility] Right: Abdomen 03/03/2023 [id number] / / [id number] Description:Viatorr TIPS End oprosthesis 8-10 mm x 8cm / 2cm, Manufactored by [employer]. [employer] Inc. [email or web address] Syr Pf 2ml Embospheres 100-300 - [id number] Implanted:Qty: 1 on 04/18/2021 by Kevin Lim DO at OR [facility] Left: Abdomen [email or web address] [id number] 11/25/2023 S220GH / / [id number] -5 Lipiodol Injection - [id number] Implanted:Qty: 1 on 03/28/2022 at [facility] [employer] 03/01/2023 68140-35 01-2 / / [id number] Syr Pf 2ml Embospheres 100-300 - [id number] Implanted:Qty: 1 on 03/28/2022 at [facility] [employer] [id number] 08/31/2024 S220GH / / [id number] -5 Clareon Iol Aspheric Hydrophobic Acrylic Iol Implanted:Qty: 1 on 04/02/2023 by Cody Gonzalez DO at OR [facility] Right: Eye JAZMIN 11/12/2025 CNA0T0 / [id number] 139 / Syr Pf 2ml Embospheres 100-300 - [id number] Implanted:Qty: 1 on 06/11/2024 at [facility] [employer] [id number] 01/02/2027 S220GH / / [id number] -5 Cath Diag Gene 2 6fqg36dt - [id number] Implanted:Qty: 1 on 06/11/2024 at [facility] [employer] [id number] 10/06/2026 [id number] / / [id number] documented as of this encounter Advance Directives Documents on File Type Date Recorded 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
--- OUTSIDE RECORDS SUMMARY | 2024-12-04 16:52 | External Medical Summary | Summary of Care ---
Author Name Unknown Organization [facility] Address [address] [facility] [place] [address] Phone [phone] Care Team Providers Care Risk Compliance Manager Name Role Phone Kristen Vences DO Primary Care Provider [phone] Reason for Visit * Reason Onset Date Comments Referral 11/10/2024 Encounter Details Date Type Department Care Team (Late st Contact Info) Description 11/10/2024 Telephone Gastroenterology, [facility] [address] [place] [address] Lamar Tatum CRNP [address] [place] [address] Referral Allergies No known active allergiesdocumented as of this encounter (statuses as of 11/10/2024) Medications OneTouch Verio In Vitro Strip (Glucose [...] as of this encounter (statuses as of 11/10/2024) Active Problems Problem Noted Date Diagnosed Date [...] as of this encounter (statuses as of 11/10/2024) Resolved Problems Problem Noted Date Diagnosed Date [...] as of this encounter (statuses as of 11/10/2024) Immunizations Name Administration Dates Next Due COVID-19 mRNA, LNP-s, No Pre serve, 2-Dose Series ([employer]) 03/08/2021,02/15/2021 COVID-19, MRNA-LNP, PF, 50 M CG/0.5 [...] Telephone Encounter - Jenna Morse OSA - 11/10/2024 1:43 PM EST Pt was seen in the office with our fine arts chair Lamar and she ordered and ir arterial embolization. It looks pt has had previous done in [place] can you please call pt to schedule. documented in this encounter Plan of Treatment Upcoming Encounters Date Type Department Care Team (Latest Contact Info) Description 11/26/2024 9:03 AM EST Hospital Encounter OR [facility], Operating Room, [facility] - 4th Floor [address] [place] [phone] David Duncan MD [address] [place] [address] 11/26/2024 9:03 AM EST - 11/26/2024 9:43 AM EST Surgery OR [facility], Operating Room, [facility] - 4th Floor [address] [place] [phone] David Duncan MD [address] [place] [address] ESOPHAGOGASTRODUODENOSCOPY (EGD), FLEXIBLE, TRANSORAL, DIAGNOSTIC 01/13/2025 2:00 PM EST Office Visit Hematology/Oncol ogy [facility] [address] [place] [phone] Jennifer Ramires MD 200 [facility] [place] [address] 01/26/2025 3:15 PM EST Office Visit Urology, [facility] [address] [place] [address] Frank Peraza MD [address] [place] [address] 02/10/2025 3:00 PM EDT Office Visit Gastroenterology , [facility] [address] [place] [address] Lamar Tatum CRNP [address] [place] [address] 03/29/2025 2:45 PM EDT Office Visit Dermatology [facility] [address] [place] [address] Francisco Watson MD 200 [place] [address] Scheduled Procedures Name Priority Associated Diagnoses Date/Ti [...] Additional history exists CKD PHOS USE SMARTSET 90278 05/19/202505/02, 05/08/2024, 04/07/2024, Additional history exists Diabetic Foot Exam 05/19/2025 05/19/2024, 0 03/06/2023, 01/03/2022, Additional history exists Depression Screening 08/10/2025 08/10/2024 CKD HGB USE SMARTSET 96207 11/03/202511/03, 11/02/2024, 11/02/2024, Additional history exists Sigmoidoscopy [...] this encounter Medical Devices Implanted Type Area Public Records Officer Device Identifier Shelf Expiration Date Model / Serial / Lot Clareon Iol Aspheric Hydrophobic Acrylic Iol Implanted:Qty: 1 on 04/23/2023 by Cody Gonzalez DO at OR [facility] Lens Left: Eye 11/12/2025 CNA0T0 / [id number] 136 / Viatorr Tips Endoprosthesis 8-10 Mm X 8cm / 2cm Implanted:Qty: 1 on 10/07/2020 by Go Alvarado MD at [facility] Right: Abdomen 03/03/2023 [id number] / / [id number] Description:Viatorr TIPS End oprosthesis 8-10 mm x 8cm / 2cm, Manufactored by [employer]. [employer]zier [employer] Inc. [email or web address] Syr Pf 2ml Embospheres 100-300 - [id number] Implanted:Qty: 1 on 04/18/2021 by Kevin Lim DO at OR [facility] Left: Abdomen [employer] [id number] 11/25/2023 S220GH / / [id number] -5 Lipiodol Injection - [id number] Implanted:Qty: 1 on 03/28/2022 at [facility] [employer] 03/01/2023 75793-22 01-2 / / [id number] Syr Pf 2ml Embospheres 100-300 - [id number] Implanted:Qty: 1 on 03/28/2022 at [facility] [employer] [id number] 08/31/2024 S220GH / / [id number] -5 Clareon Iol Aspheric Hydrophobic Acrylic Iol Implanted:Qty: 1 on 04/02/2023 by Cody Gonzalez DO at OR [facility] Right: Eye JAZMIN 11/12/2025 CNA0T0 / [id number] 139 / Syr Pf 2ml Embospheres 100-300 - [id number] Implanted:Qty: 1 on 06/11/2024 at [facility] [employer] [id number] 01/02/2027 S220GH / / [id number] -5 Cath Diag Cobra 2 6nnr64sz - [id number] Implanted:Qty: 1 on 06/11/2024 at [facility] [employer] [id number] 10/06/2026 [id number] / / [id number] documented as of this encounter Advance Directives Documents on File Type Date Recorded 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
--- OUTSIDE RECORDS SUMMARY | 2024-12-04 16:52 | External Medical Summary | Summary of Care ---
Author Name Unknown Organization [facility] Address 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 Hx pancreatic cyst, GERD/GAVE. 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 180 Tablet 2 023 Active Additional Information Patient taking differently:200 mg Oral Daily(AM),Takes 1 in AM and 1 in PM, Reported on 11/09/2024 Lantus 100 UNIT/ML Subcutaneous Solution Inject 25 Units under the skin every evening. With dinner 3 Each 5 023 Active rifAXIMin 550 MG Oral Tablet (Xifaxan)Indicatio ns:Cirrhosis of liver (HCC),Hepatic encephalopathy (HCC) Take 1 Tablet by mouth in the morning and 1 Tablet before bedtime. 180 Tablet 5 023 Active DULoxetine HCl 30 MG Oral Capsule Delayed Release Particles (Cymbalta) Take 1 Capsule by mouth in the morning. 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 90 Tablet 3 024 2023 Discontinued documented as of this [...] LNP-s, No Pre serve, 2-Dose Series (Blue Flame Data) 03/08/2021,02/15/2021 COVID-19, MRNA-LNP, PF, 50 M CG/0.5 mL, 12 YRS AND ABOVE, IM (MODERNA-Spikevax) 10/18/2023 HepA Inact/HepB Recomb>=18yrs old 12/04/2019,04/2019,05/20/2019 11/19/2019 PPD 06/18/2017, 3,01/09/2012,0306/2011 Pneumococcal Conjugate Vacc, 13 Valent (Prevnar) 05/01/2017 Pneumococcal Polysaccharide PPV23 (Pneumovax) 09/14/2022,08/28/2022,10/25/2015,07/02 Season Influenza, Quad, PF, Adjuvanted, 65+ Yrs, IM (FLUAD) 10/07/2020(Deferred: Patient Refused - pt says he already had his shot last month at [facility] [employer] made [...] No 08/10/2024 Does the household have a [facility] source of income? (Household - for [...] Sign Reading Time Taken Comments Blood Pressure 130/68 11/09/2024 2:12 PM EST Pulse 72 11/09/2024 2:12 PM EST Temperature 36.6 C (97.9 F) 11/09/2024 2:12 PM ES T Respiratory Rate - - Oxygen Saturation 97% 11/09/2024 2:12 PM EST Inhaled Oxygen Concentration - - Weight 78.5 kg (173 lb) 11/09/2024 2:12 PM EST Height - - Body Mass Index 24.82 08/11/2024 3:22 PM EDT documented in this encounter Functional Status * [...] Mg Huggins RN documented in this encounter Progress Notes * Lamar Tatum CRNP - 11/09/2024 2:16 PM EST CC: Cirrhosis Recheck HPI: Recall that MR. Luis Hale is a 74 yr old male pt w a hx DM2, CKD, restrictive lung disease,prostate cancer S/P radiation, FOFANA cirrhosis complicated by prior hep enceph, EV, portal HTN gastropathy, chronic blood transfusion requiring anemia (followed by hem/onc anemia clinic), previous HCC who presents today for recheck. He was presented to tumor board last 11/09/24 outcome being the lesion that was treated in June is larger and IR will contact him to arrange f/u - likely further treatment. Pt is stable, able to get around w a walker, no confusion. No black BMs. Small specs of bright red blood in stools about once a week. No N/V Following low salt diet. Having difficulty swallowing large pills. Asks for smaller fursemide - will change to two of the 20mg pills daily . MELD 3.0: 17 at 10/13/2024 10:22 AM Calculated from: Serum Creatinine: 1.2 mg/dL at 10/13/2024 10:22 AM Serum Sodium: 138 mmol/L (Using max of 137 mmol/L) at 10/13/2024 10:22 AM Total Bilirubin: 2.6 mg/dL at 10/13/2024 10:22 AM Serum Albumin: 2.6 g/dL at 10/13/2024 10:22 AM INR(ratio): 1.4 at 10/13/2024 10:22 AM Age at listing (hypothetical): 74 years Sex: Male at 10/13/2024 10:22 AM Transplant status: evaluated by transplant, listed by removed from listing in May 2024 due to general frailty. Decompensations: EV: iradicated. Most recent EGD 08/09/23: portal hypertensive gastropathy, no varices Radiation Proctitis: Flex sig 02/01/22 and 04/12/22: APC'ed. No mention on Aug 2023 colonoscopy. Hepatic Encephalopathy: most recently July 2023 currently on Lactulose 15ml once daily and Rifaximin BID. Passing 3-4 BMs/day. Ascites: - Post TIPs and revision. Maintained in Furosemide 40mg daily. Undergoing paracentesis about every 2-3 wks. Order in for Q 2 wks. Most recent paracentesis 3.8L November 03. Anemia: Managed by Dr. Ramires. Received one unit RBC at [facility] last week. Hx HCC: Liver MRI Oct 2024: 1. Cirrhosis with portal hypertension. Moderate volume ascites. 2. Interval increase in size of observation 1, segment 4B compatible with LR-TR viable measuring 3.8 x 2.6 cm, previously measuring 2.4 x 1.8 cm on 04/10/2024 CT abdomen and pelvis. 3. Stable observation 2 measuring 4.1 x 3.7 cm within segment 2 compatible with LR-TR viable. 4. Stable 1.5 cm complex cystic renal lesion with nodular thickened septa within the left renal lower pole concerning for cystic renal neoplasm. Liver MRI January 2024: Hepatic cirrhosis with stigmata of portal hypertension (splenomegaly, abdominal varices and moderate to large volume ascites). Nondiagnostic evaluation at the hepatic dome and specifically the segment 2 treatment cavity. However on review of prior imaging studies, there has been overall increase in size of the segment 2 lesion/treatment cavity as described with mild restricted diffusion, suggesting viable tumor; [id number]. Moderate gastric wall thickening may reflect gastritis versus portal gastropathy. Correlate clinically. A 1.5 cm complex cystic left renal lesion as described, suspicious for cystic renal cell carcinoma,grossly unchanged.Hepatic cirrhosis with stigmata of portal hypertension (splenomegaly, abdominal varices and moderate to large volume ascites). Nondiagnostic evaluation at the hepatic dome and specifically the segment 2 treatment cavity. However on review of prior imaging studies, there has been overall increase in size of the segment 2 lesion/treatment cavity as described with mild restricted diffusion, suggesting viable tumor; [id number]. Moderate gastric wall thickening may reflect gastritis versus portal gastropathy. Correlate clinically. A 1.5 cm complex cystic left renal lesion as described, suspicious for cystic renal cell carcinoma,grossly unchanged. Screenings: Colonoscopy 08/09/23 - Preparation of the colon was fair. Two 5mm transverse colon polyps removed, moderate sigmoid/descending colon diverticulosis, internal hemorrhoids. EXAM: BP 130/68 | Pulse 72 | Temp 36.6 C (97.9 F) | Wt 78.5 kg (173 lb) | SpO2 97% | BMI 24.82 kg/m| BSA 1.97 m GENERAL: 74 year old male well developed and well nourished in no acute distress SKIN: + psoriasis, ulcers, or spider angiomata HEENT: normocephalic, sclera clear, pharynx normal NECK: supple, no lymphadenopathy, no masses or thyroid enlargement LUNGS: clear to auscultation anterior and posterior HEART: regular rate & rhythm, no murmurs and no gallops ABDOMEN: normo-active bowel sounds, soft, non-tender, + mild ascites, no hepatosplenomegaly, no rebound or guarding, no bruits EXTREMITIES: no palmar erythema, no edema, no skin discoloration, no clubbing, no cyanosis NEURO: no lateralizing findings, Sensory/Motor grossly normal; mentally clear, answers questions quickly/appropriately IMPRESSION/RECOMMENDATIONS: 74 year old male with 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 Esophageal varices without bleeding, unspecified esophageal varices type (HCC) - EGD, FLEXIBLE, DIAGNOSTIC Would defer colonoscopy - frail would be difficult to undergo prep and pt doesn't believe he could manage the drive to [place] w diarrhea/incontinence. Meds: Change from furosemide 40 daily to 20, 2 tabs daily. Continue spirolactone 100mg daily. Continue rifaximin 550mg BID, lactulose 1-3x/day to affect 3 BMs/day Cont Pantoprazole 40mg daily. Continue f/u w hematology for anemia. Has seen palliative care in the past. Had recent MELD labs. Recheck in GI clinic in and as needed. I spent a total of 30 minutes [...] documented in this encounter Nursing Notes * Carmen Longo CMA - 11/09/2024 2:11 PM EST Chief Complaint Patient presents with Follow Up Pt here to f/u for cirrhosis. Hx pancreatic cyst, GERD/GAVE. documented in this encounter Plan of Treatment Upcoming Encounters Date Type Department Care Team (Late st Contact Info) Description 01/13/2025 2:00 PM EST Office Visit Hematology/[facility] [address] [place] [address] [phone] Jennifer Ramires MD [address] [place] [address] 01/26/2025 3:15 PM EST Office Visit Urology, [facility] [address] [place] [address] Frank Peraza MD [address] [place] [address] 02/10/2025 3:00 PM EDT Office Visit Gastroenterology, [facility] [address] [place] [address] Lamar Tatum CRNP [address] [place] [address] 03/29/2025 2:45 PM EDT Office Visit Dermatology 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) HCC (hepatocellular carcinoma) (HCC) Expected: 11/16/2024, Expires: 12/10/2025 EGD, FLEXIBLE, DIAGNOSTIC Procedures Routine Esophageal varices without bleeding, unspecified esophageal varices type (HCC) Ordered: 11/09/2024 Scheduled Procedures Name Priority Associated Diagnoses Date/Ti [...] Additional history exists CKD PHOS USE SMARTSET 13236 05/19/202505/02, 05/08/2024, 04/07/2024, Additional history exists Diabetic Foot Exam 05/19/2025 05/19/2024, 0 03/06/2023, 01/03/2022, Additional history exists Depression Screening 08/10/2025 08/10/2024 CKD HGB USE SMARTSET 50927 11/03/202511/03, 11/02/2024, 11/02/2024, Additional history exists Sigmoidoscopy [...] encounter Medical Devices Implanted Type Area Cut Lace Machine Operator Device Identifier Shelf Expiration Date Model / Serial / Lot Clareon Iol Aspheric Hydrophobic Acrylic Iol Implanted:Qty: 1 on 04/23/2023 by Cody Gonzalez DO at [facility] Lens Left: Eye 11/12/2025 CNA0T0 / [id number] / Viatorr Tips Endoprosthesis 8-10 Mm X 8cm / 2cm Implanted:Qty: 1 on 10/07/2020 by Go Alvarado MD at [facility] Right: Abdomen 03/03/2023 [id number] / / [id number] Description:Viatorr TIPS End oprosthesis 8-10 mm x 8cm / 2cm, Manufactored by [employer] [email or web address] Syr Pf 2ml Embospheres 100-300 - [id number] Implanted:Qty: 1 on 04/18/2021 by Kevin Lim DO at [facility] Left: Abdomen 500px [employer] [id number] 11/25/2023 S220GH / / [id number] Lipiodol Injection - [id number] Implanted:Qty: 1 on 03/28/2022 at [facility] [employer] 03/01/2023 [id number] 01-2 / / [id number] Syr Pf 2ml Embospheres 100-300 - [id number] Implanted:Qty: 1 on 03/28/2022 at [facility] [employer] [id number] 08/31/2024 S220GH / / [id number] -5 Clareon Iol Aspheric Hydrophobic Acrylic Iol Implanted:Qty: 1 on 04/02/2023 by Cody Gonzalez DO at [facility] Right: Eye JAZMIN 11/12/2025 CNA0T0 / [id number] / Syr Pf 2ml Embospheres 100-300 - [id number] Implanted:Qty: 1 on 06/11/2024 at [facility] [employer] [id number] 01/02/2027 S220GH / / [id number] -5 Cath Pradeep Mills 2 [id number] - [id number] Implanted:Qty: 1 on 06/11/2024 at [facility] [employer] [id number] 10/06/2026 [id number] / / [id number] documented as of this encounter Visit Diagnoses Diagnosis 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)- Primary HCC (hepatocellular carcinoma) (HCC) Malignant neoplasm of liver, primary Esophageal varices without bleeding, unspecified esophageal varices type (HCC) documented in this encounter Advance Directives Documents on File Type Date Recorded Patient Director Of Research Expl anation Advance Directives and Living Will 12/11/2022 ADVANCE DIRECTIVE / LIVING WILL LIVING WILL Power of Senior Benefits Analyst 12/11/2022 POWER OF A TTORNEY * [...] Discussed due to patient's condition Care Teams Psychological Stress Evaluator Relationship Specialty Start Date End Date Kristen Vences DO [address] [address] PCP - General Family Medicine 05/19/24 documented as of this encounter"
--- OUTSIDE RECORDS SUMMARY | 2024-12-04 16:53 | External Medical Summary | Summary of Care ---
Author Name Unknown Organization [facility] Address [address] [facility] [place] [address] Phone [phone] Care Team Providers Care Cash Sales Audit Clerk Name Role Phone Kristen Vences DO Primary Care Provider [phone] Reason for Visit * Reason Onset Date Comments Test Results 10/26/2024 Unexpected or In determinate Result Encounter Details Date Type Department Care Team (Late st Contact Info) Description 10/26/2024 Telephone Gastroenterology, [facility] [address] [place] [address] Carlee Salazar CRNP [address] [place] [address] Test Results (Unexpected or Indeterminate ... Allergies No known active allergiesdocumented as of this encounter (statuses as of 10/26/2024) Medications OneTouch Verio In Vitro Strip (Glucose [...] in the morning. 180 Tablet 2 10/28/20 23 Active Additional Information Patient taking differently:200 mg [...] as of this encounter (statuses as of 10/26/2024) Active Problems Problem Noted Date Diagnosed Date [...] as of this encounter (statuses as of 10/26/2024) Resolved Problems Problem Noted Date Diagnosed Date [...] as of this encounter (statuses as of 10/26/2024) Immunizations Name Administration Dates Next Due COVID-19 mRNA, LNP-s, No Pre serve, 2-Dose Series (Snapwiz) 03/08/2021,02/15/2021 COVID-19, MRNA-LNP, PF, 50 M CG/0.5 [...] encounter Miscellaneous Notes * Telephone Encounter - Andremarch, - 10/26/2024 7:46 PM EST Rommel- The radiologist discovered an unexpected or indeterminate finding on Luis Hale ([id number]) and asks that you review the following report. Study Type:MRI LIVER W WO CONTRAST Date of Study: 10/24/2024 IMPRESSION IMPRESSION 1. Cirrhosis with portal hypertension. Moderate volume [...] lower pole concerning for cystic renal neoplasm. Please respond to this encounter to acknowledge receipt of this message and take responsibility to ensure this report is reviewed. Thank you, ESTELLE Shah Client Service Rep Diagnostic Medicine [place] documented in this encounter Plan of Treatment Upcoming Encounters Date Type Department Care Team (Late st Contact Info) Description 10/27/2024 7:00 AM EST Laboratory Lab Mobile Phlebotomy [facility] [address] [address] Mvmg, Gml Mobile Home Draw [address] [address] 10/27/2024 12:20 PM EST Office Visit Pulmonary Medicine, [facility] [address] [facility] [place] [address] Jordan Stanley MD [address] [facility] [place] [address] 11/09/2024 2:30 PM EST Office Visit Gastroenterology, [facility] [address] [facility] [place] [address] Lamar Tatum CRNP [address] [facility] [place] [address] 01/13/2025 2:00 PM EST Office Visit Hematology/Oncology [facility] [address] [facility] [place] [address] [phone] Jennifer Ramires MD [address] [place] [address] 01/26/2025 3:15 PM EST Office Visit Urology, [facility] [address] [place] [address] Frank Peraza MD [address] [address] 03/29/2025 2:45 PM EDT Office Visit Dermatology [facility] [address] [facility] [address] Francisco Watson MD [address] [facility] [address] Scheduled Procedures Name Priority Associated Diagnoses Date/Ti [...] Additional history exists CKD PHOS USE SMARTSET 21049 05/19/202505/02, 05/08/2024, 04/07/2024, Additional history exists Diabetic Foot Exam 05/19/2025 05/19/2024, 0 03/06/2023, 01/03/2022, Additional history exists Depression Screening 08/10/2025 08/10/2024 CKD HGB USE SMARTSET 33853 10/20/202510/20, 10/13/2024, 10/13/2024, Additional history exists Sigmoidoscopy 04/12/2027 04/12/2022 Lipid [...] encounter Medical Devices Implanted Type Area Senior Nuclear Medicine Technologist Device Identifier Shelf Expiration Date Model / Serial / Lot Clareon Iol Aspheric Hydrophobic Acrylic Iol Implanted:Qty: 1 on 04/23/2023 by Cody Gonzalez DO at OR [facility] Lens Left: Eye 11/12/2025 CNA0T0 / [id number] / Viatorr Tips Endoprosthesis 8-10 Mm X 8cm / 2cm Implanted:Qty: 1 on 10/07/2020 by Go Alvarado MD at [facility] Right: Abdomen 03/03/2023 [id number] / / [id number] Description:Viatorr TIPS End oprosthesis 8-10 mm x 8cm / 2cm, Manufactored by [employer] [email or web address] Syr Pf 2ml Embospheres 100-300 - [id number] Implanted:Qty: 1 on 04/18/2021 by Kevin Lim DO at OR [facility] Left: Abdomen [employer] [id number] 11/25/2023 S220GH / / [id number] -[id number] Lipiodol Injection - [id number] Implanted:Qty: 1 on 03/28/2022 at [facility] [employer] 03/01/2023 [id number] 01-2 / / [id number] Syr Pf 2ml Embospheres 100-300 - [id number] Implanted:Qty: 1 on 03/28/2022 at [facility] [employer] [id number] 08/31/2024 S220GH / / [id number] -5 Clareon Iol Aspheric Hydrophobic Acrylic Iol Implanted:Qty: 1 on 04/02/2023 by Cdoy Gonzalez DO at OR [facility] Right: Eye JAZMIN 11/12/2025 CNA0T0 / [id number] / Syr Pf 2ml Embospheres 100-300 - [id number] Implanted:Qty: 1 on 06/11/2024 at [facility] [employer] [id number] 01/02/2027 S220GH / / [id number] -5 Cath Diag Cobra 2 [id number] - [id number] Implanted:Qty: 1 on 06/11/2024 at [facility] [employer] [id number] 10/06/2026 [id number] / / [id number] documented as of this encounter Advance Directives Documents on File Type Date Recorded Patient Railway Patrol Officer Expl anation Advance Directives and Living Will 12/11/2022 ADVANCE DIRECTIVE / LIVING WILL LIVING WILL Power of Customs Appraiser 12/11/2022 POWER OF A TTORNEY * Full [...] Discussed due to patient's condition Care Teams Cash Sales Audit Clerk Relationship Specialty Start Date End Date Kristen Vences DO [address] [address] PCP - General Family Medicine 05/19/24 documented as of this encounter
--- OUTSIDE RECORDS SUMMARY | 2024-12-04 16:53 | External Medical Summary | Summary of Care ---
Author Name Unknown Organization [facility] Address [address] [facility] [place] [address] Phone [phone] Care Team Providers Care Twisting Department End Finder Name Role Phone Kristen Vences DO Primary Care Provider [phone] Encounter Details Date Type Department Care Team (Late st Contact Info) Description 11/02/2024 Orders Only [facility]ematology/[facility] [place] 200 [facility] [address] [facility]aka Tatum [facility] [place] [address] Iron deficiency anemia due to chronic blood loss* Allergies No known active allergiesdocumented as of this encounter (statuses as of 11/02/2024) Medications OneTouch Verio In Vitro Strip (Glucose [...] as of this encounter (statuses as of 11/02/2024) Active Problems Problem Noted Date Diagnosed Date [...] as of this encounter (statuses as of 11/02/2024) Resolved Problems Problem Noted Date Diagnosed Date [...] as of this encounter (statuses as of 11/02/2024) Immunizations Name Administration Dates Next Due COVID-19 mRNA, LNP-s, No Pre serve, 2-Dose Series (123people) 03/08/2021,02/15/2021 COVID-19, MRNA-LNP, PF, 50 M CG/0.5 [...] Gastroenterology, [facility] [address] [place] [address] Lamar Tatum CRNP [address] [place] [address] 01/13/2025 2:00 PM EST Office Visit Hematology/Oncology [facility] 200 [facility] [place] [phone] Jennifer Ramires MD 200 [facility] [place], [place] [address] 01/26/2025 3:15 PM EST Office Visit Urology, [facility] [address] [facility] [address] Frank Peraza MD 27 [place] [address] 03/29/2025 2:45 PM EDT Office Visit Dermatology [facility] 200 [facility] [place] [address] Francisco Watson MD 200 [facility] [place] [address] Scheduled Orders Name Type Priority Associated Diagnoses Orde r Schedule CBC WITH WBC DIFFERENTIAL Lab STAT Iron deficiency anemia due to chronic blood loss Expected: 11/02/2024, Expires: 11/02/2025 Scheduled Procedures Name Priority Associated Diagnoses Date/Ti [...] Additional history exists CKD PHOS USE SMARTSET 47694 05/19/202505/02, 05/08/2024, 04/07/2024, Additional history exists Diabetic Foot Exam 05/19/2025 05/19/2024, 0 03/06/2023, 01/03/2022, Additional history exists Depression Screening 08/10/2025 08/10/2024 CKD HGB USE SMARTSET 71214 10/20/202510/20, 10/13/2024, 10/13/2024, Additional history exists Sigmoidoscopy [...] this encounter Medical Devices Implanted Type Area Burglar Alarm Assembler Device Identifier Shelf Expiration Date Model / Serial / Lot Clareaníbal Iol Aspheric Hydrophobic Acrylic Iol Implanted:Qty: 1 on 04/23/2023 by Cody Gonzalez DO at [facility] Lens Left: Eye 11/12/2025 CNA0T0 / [id number] / Viatorr Tips Endoprosthesis 8-10 Mm X 8cm / 2cm Implanted:Qty: 1 on 10/07/2020 by Go Alvarado MD at [facility] Right: Abdomen 03/03/2023 [id number] / / [id number] Description:Viatorr TIPS End oprosthesis 8-10 mm x 8cm / 2cm, Manufactored by [employer] [email or web address] Syr Pf 2ml Embospheres 100-300 - [id number] Implanted:Qty: 1 on 04/18/2021 by Kevin iLm DO at [facility] Left: Abdomen [employer] [id number] 11/25/2023 S220GH / / [id number] Lipiodol Injection - [id number] Implanted:Qty: 1 on 03/28/2022 at [facility] [employer] 03/01/2023 [id number] 01-2 / / [id number] Syr Pf 2ml Embospheres 100-300 - [id number] Implanted:Qty: 1 on 03/28/2022 at [facility] [employer] [id number] 08/31/2024 S220GH / / [id number] -[id number] Clareon Iol Aspheric Hydrophobic Acrylic Iol Implanted:Qty: 1 on 04/02/2023 by Cody Gonzalez DO at OR [facility] Right: Eye JAZMIN 11/12/2025 CNA0T0 / [id number] / Syr Pf 2ml Embospheres 100-300 - [id number] Implanted:Qty: 1 on 06/11/2024 at [facility] [employer] [id number] 01/02/2027 S220GH / / [id number] -[id number] Cath Diag Cobra 2 [id number] - [id number] Implanted:Qty: 1 on 06/11/2024 at [facility] [employer] [id number] 10/06/2026 [id number] / / [id number] documented as of this encounter Visit Diagnoses Diagnosis Iron deficiency anemia due to chronic blood loss- Primary Iron deficiency anemia secondary to blood loss (chronic) documented in this encounter Advance Directives Documents on File Type Date Recorded Patient Senior Svp Expl anation Advance Directives and Living Will 12/11/2022 ADVANCE DIRECTIVE / LIVING WILL LIVING WILL Power of Rubber Roller Grinder Operator 12/11/2022 POWER OF A TTORNEY * [...] Discussed due to patient's condition Care Teams Twisting Department End Finder Relationship Specialty Start Date End Date Kristen Vences DO [address] [place] [address] PCP - General Family Medicine 05/19/24 documented as of this encounter
--- OUTSIDE RECORDS SUMMARY | 2024-12-04 16:53 | External Medical Summary | Summary of Care ---
Author Name Unknown Organization [facility] Address [address] [facility] [place] [address] Phone [phone] Care Team Providers Care Valet Attendant Name Role Phone Kristen Vences DO Primary Care Provider [phone] [phone] Encounter Details Date Type Department Care Team (Late st Contact Info) Description 11/02/2024 Orders Only [facility] [place] 200 [facility] [address] Ayaka Tatum CRNP 400 [facility] [place] [address] Iron deficiency anemia [...] mRNA, LNP-s, No Pre serve, 2-Dose Series (Elyssafregori) 03/08/2021,02/15/2021 COVID-19, MRNA-LNP, PF, 50 M CG/0.5 [...] 11/09/2024 2:30 PM EST Office Visit Gastroenterology, [facility] [address] [place] [address] [address] Lamar Tatum CRNP [address] [place] [address] 01/13/2025 2:00 PM EST Office Visit Hematology/Oncology [facility] 200 [facility] [place] [phone] Jennifer Ramires MD 200 [facility] [place], [place] [address] 01/26/2025 3:15 PM EST Office Visit Urology, [facility] [address] [facility] [place] [address] Frank Peraza MD 27 [place] [address] 03/29/2025 2:45 PM EDT Office Visit Dermatology [facility] 200 [facility] [place], [place] [address] Francisco Watson MD 200 [facility] [place] [address] Scheduled Orders Name Type Priority Associated Diagnoses Orde r Schedule TYPE AND SCREEN Lab Routine Iron deficiency anemia due to chronic blood loss Expected: 11/03/2024, Expires: 12/01/2025 Scheduled Procedures Name Priority Associated Diagnoses Date/Ti [...] Additional history exists CKD PHOS USE SMARTSET 55207 05/19/202505/02, 05/08/2024, 04/07/2024, Additional history exists Diabetic Foot Exam 05/19/2025 05/19/2024, 0 03/06/2023, 01/03/2022, Additional history exists Depression Screening 08/10/2025 08/10/2024 CKD HGB USE SMARTSET 74594 10/20/202510/20, 10/13/2024, 10/13/2024, Additional history exists Sigmoidoscopy [...] this encounter Medical Devices Implanted Type Area Grey Inspector Device Identifier Shelf Expiration Date Model / Serial / Lot Clareon Iol Aspheric Hydrophobic Acrylic Iol Implanted:Qty: 1 on 04/23/2023 by Cody Gonzalez DO at OR [facility] Lens Left: Eye 11/12/2025 CNA0T0 / [id number] / Viatorr Tips Endoprosthesis 8-10 Mm X 8cm / 2cm Implanted:Qty: 1 on 10/07/2020 by Go Alvarado MD at [facility] Right: Abdomen 03/03/2023 [id number] / / [id number] Description:Viatorr TIPS End oprosthesis 8-10 mm x 8cm / 2cm, Manufactored by [employer] [email or web address] Syr Pf 2ml Embospheres 100-300 - [id number] Implanted:Qty: 1 on 04/18/2021 by Kevin Lim DO at OR [facility] Left: Abdomen [employer] [id number] 11/25/2023 S220GH / / [id number] -5 Lipiodol Injection - [id number] Implanted:Qty: 1 on 03/28/2022 at [facility] [employer] 03/01/2023 28656-60 01-2 / / [id number] Syr Pf 2ml Embospheres 100-300 - [id number] Implanted:Qty: 1 on 03/28/2022 at [facility] [employer] [id number] 08/31/2024 S220GH / / [id number] -5 Clareon Iol Aspheric Hydrophobic Acrylic Iol Implanted:Qty: 1 on 04/02/2023 by Cody Gonzalez DO at OR [facility] Right: Eye JAZMIN 11/12/2025 CNA0T0 / [id number] / Syr Pf 2ml Embospheres 100-300 - [id number] Implanted:Qty: 1 on 06/11/2024 at [facility] [employer] [id number] 01/02/2027 S220GH / / [id number] -5 Cath Diag Cobra 2 [id number] - [id number] Implanted:Qty: 1 on 06/11/2024 at [facility] [employer] [id number] 10/06/2026 [id number] / / [id number] documented as of this encounter Visit Diagnoses Diagnosis Iron deficiency anemia due to chronic blood loss- Primary Iron deficiency anemia secondary to blood loss (chronic) documented in this encounter Advance Directives Documents on File Type Date 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
--- OUTSIDE RECORDS SUMMARY | 2024-12-04 16:53 | External Medical Summary | Summary of Care ---
Author Name Unknown Organization [facility] Address [address] [facility] [place] [address] Phone [phone] Care Team Providers Care Roll Capper Name Role Phone Kristen Vences DO Primary Care Provider [phone] Reason for Visit * Reason Onset Date Comments Test Results 10/26/2024 Unexpected or In determinate Result Encounter Details Date Type Department Care Team (Late st Contact Info) Description 10/26/2024 Telephone Gastroenterology, [facility] [address] [place] [address] Carlee Salazar CRNP [address] [place] [address] Test Results (Unexpected or Indeterminate ... Allergies No known active allergiesdocumented as of this encounter (statuses as of 10/27/2024) Medications OneTouch Verio In Vitro Strip (Glucose [...] as of this encounter (statuses as of 10/27/2024) Active Problems Problem Noted Date Diagnosed Date [...] as of this encounter (statuses as of 10/27/2024) Resolved Problems Problem Noted Date Diagnosed Date [...] as of this encounter (statuses as of 10/27/2024) Immunizations Name Administration Dates Next Due COVID-19 mRNA, LNP-s, No Pre serve, 2-Dose Series (Alea) 03/08/2021,02/15/2021 COVID-19, MRNA-LNP, PF, 50 M CG/0.5 [...] Miscellaneous Notes * Telephone Encounter - Carlee Salazar CRNP - 10/27/2024 1:30 PM EST Staff message sent to IR. * Telephone Encounter - Sadie March, - 10/26/2024 7:46 PM EST Rommel- The radiologist discovered an unexpected or indeterminate finding on Luis Hale ([id number]) and asks that you review the following [...] Thank you, ESTELLE Shah Client Service Rep [facility] documented in this encounter Plan of Treatment Upcoming Encounters Date Type Department Care Team (Late st Contact Info) Description 11/02/2024 12:00 PM EST Office Visit Pulmonary Medicine, [facility] 132 [facility] [place] [address] Jordan Stanley MD [address] [place] [address] 11/09/2024 2:30 PM EST Office Visit Gastroenterology, [facility] 132 [facility] [place] [address] Lamar Tatum CRNP 132 [facility] [place] [address] 01/13/2025 2:00 PM EST Office Visit Hematology/Oncology [facility] 200 [facility] [place] [address] Jennifer Ramires MD 200 [facility] [place] [address] 01/26/2025 3:15 PM EST Office Visit Urology, [facility] [address] [place] [address] Frank Peraza MD [address] [place] [address] 03/29/2025 2:45 PM EDT Office Visit Dermatology [facility] 200 [facility] [place] [address] Francisco Watson MD 200 [facility] [place] [address] Scheduled Procedures Name Priority Associated Diagnoses Date/Ti [...] Additional history exists CKD PHOS USE SMARTSET 10869 05/19/202505/02, 05/08/2024, 04/07/2024, Additional history exists Diabetic Foot Exam 05/19/2025 05/19/2024, 0 03/06/2023, 01/03/2022, Additional history exists Depression Screening 08/10/2025 08/10/2024 CKD HGB USE SMARTSET 08911 10/20/202510/20, 10/13/2024, 10/13/2024, Additional history exists Sigmoidoscopy [...] this encounter Medical Devices Implanted Type Area Report Developer Device Identifier Shelf Expiration Date Model / Serial / Lot Mary Annon Iol Aspheric Hydrophobic Acrylic Iol Implanted:Qty: 1 on 04/23/2023 by Cody Gonzalez DO at OR [facility] Lens Left: Eye 11/12/2025 CNA0T0 / [id number] 136 / Viatorr Tips Endoprosthesis 8-10 Mm X 8cm / 2cm Implanted:Qty: 1 on 10/07/2020 by Go Alvarado MD at [facility] Right: Abdomen 03/03/2023 [id number] / / [id number] Description:Viatorr TIPS End oprosthesis 8-10 mm x 8cm / 2cm, Manufactored by [employer] [place] [employer] [email or web address] Syr Pf 2ml Embospheres 100-300 - [id number] Implanted:Qty: 1 on 04/18/2021 by Kevin Lim DO at OR [facility] Left: Abdomen [employer] [id number] 11/25/2023 S220GH / / [id number] -5 Lipiodol Injection - [id number] Implanted:Qty: 1 on 03/28/2022 at [facility] [employer] 03/01/2023 40393-08 01-2 / / [id number] Syr Pf 2ml Embospheres 100-300 - [id number] Implanted:Qty: 1 on 03/28/2022 at [facility] [employer] [id number] 08/31/2024 S220GH / / [id number] -5 Clareon Iol Aspheric Hydrophobic Acrylic Iol Implanted:Qty: 1 on 04/02/2023 by Cody Gonzalez DO at OR [facility] Right: Eye JAZMIN 11/12/2025 CNA0T0 / [id number] 139 / Syr Pf 2ml Embospheres 100-300 - [id number] Implanted:Qty: 1 on 06/11/2024 at [facility] [employer] [id number] 01/02/2027 S220GH / / [id number] -5 Cath Diag Cobra 2 [id number] - [id number] Implanted:Qty: 1 on 06/11/2024 at [facility] [employer] [id number] 10/06/2026 [id number] / / [id number] documented as of this encounter Advance Directives Documents on File Type Date Recorded 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
--- OUTSIDE RECORDS SUMMARY | 2024-12-04 16:53 | External Medical Summary | Summary of Care ---
Author Name Unknown Organization [facility] Address [address] [facility] [place] [address] Phone [phone] Care Team Providers Care Family Nurse Name Role Phone Kristen Vences DO Primary Care Provider [phone] Reason for Visit * Reason Onset Date Comments Appointment 10/02/2024 Encounter Details Date Type Department Care Team (Late st Contact Info) Description 10/02/2024 Telephone Gastroenterology, [facility] [address] [place] [address] Carlee Salazar CRNP [address] [place] [address] Appointment Allergies No known active allergiesdocumented as of this encounter (statuses as of 10/30/2024) Medications OneTouch Verio In Vitro Strip (Glucose [...] as of this encounter (statuses as of 10/30/2024) Active Problems Problem Noted Date Diagnosed Date [...] as of this encounter (statuses as of 10/30/2024) Resolved Problems Problem Noted Date Diagnosed Date [...] as of this encounter (statuses as of 10/30/2024) Immunizations Name Administration Dates Next Due COVID-19 mRNA, LNP-s, No Pre serve, 2-Dose Series (Mozes) 03/08/2021,02/15/2021 COVID-19, MRNA-LNP, PF, 50 M CG/0.5 mL, 12 YRS AND ABOVE, IM (MODERNA-Spikevax) 10/18/2023 HepA Inact/HepB Recomb>=18yrs old 12/04/2019,04/2019,05/20/2019 11/19/2019 PPD 06/18/2017, 3,01/09/2012,06/2011 Pneumococcal Conjugate Vacc, 13 Valent (Prevnar) 05/01/2017 Pneumococcal Polysaccharide PPV23 (Pneumovax) 09/14/2022,08/28/2022,10/25/2015,07/02 Season Influenza, Quad, PF, Adjuvanted, 65+ Yrs, IM (FLUAD) 10/07/2020(Deferred: Patient Refused - pt says he already had his shot last month at [facility] made aware) [...] encounter Miscellaneous Notes * Telephone Encounter - Minnie Rosales MD - 10/30/2024 4:50 PM EST Testing and procedures ordered by Gastroenterology. Covering for Dr. Vences. Forwarded to Carlee Salazar for further review * Telephone Encounter - Jocelyne Lockhart OSA - 10/30/2024 3:00 PM EST Pt did not return calls to schedule. * Telephone Encounter - Echo Melara OSA - 10/05/2024 9:03 AM EST Called patient and he is not sure how he can make it to [facility] with out having an accident . Pt will talk with his son and let office know if he wants to come that far. * Telephone Encounter - Jenna Morse OSA - 10/02/2024 12:51 PM EDT Had pat review pt chart for him to have his procedures here in the endo center but due to pt healthconcerns he is needing or please call pt to schedule the procedures and he is needing the golyte prep instructions. * Telephone Encounter - Odalys Deal LPN - 10/02/2024 10:05 AM EDT Labs printed and faxed. * Telephone Encounter - Carlee Salazar CRNP - 10/02/2024 9:23 AM EDT Follow-up from telemedicine visit today. Please assist with scheduling: MRI Liver EGD+Colonoscopy (Golytely prep due to renal dysfunction) 6 week follow-up with Veronicaarmin in-person I also placed lab orders, he will be having a paracentesis on 10/06 and will have blood work done at [facility]. Please fax blood work orders over so they can draw at that time. JEFF Ambriz documented in this encounter Plan of Treatment Upcoming Encounters Date Type Department Care Team (Late st Contact Info) Description 11/02/2024 12:00 PM EST Office Visit Pulmonary Medicine, [facility] 132 [facility] [place] [address] Jordan Stanley MD [address] [place] [address] 11/09/2024 2:30 PM EST Office Visit Gastroenterology, [facility] 132 [facility] [place] [address] Lamar Tatum CRNP 132 [place] [address] 01/13/2025 2:00 PM EST Office Visit Hematology/Oncology [facility] 200 [facility] [place] [address] Jennifer Ramires MD 200 [facility] [place], [place] [address] 01/26/2025 3:15 PM EST Office Visit Urology, [facility] 132 [facility] [place] [address] Frank Peraza MD [address] [place] [address] 03/29/2025 2:45 PM EDT Office Visit Dermatology [facility] 200 [facility] [place] [address] Francisco Watson MD 200 [facility] [place] [address] Scheduled Procedures Name Priority Associated Diagnoses Date/Ti [...] Additional history exists CKD PHOS USE SMARTSET 00742 05/19/202505/02, 05/08/2024, 04/07/2024, Additional history exists Diabetic Foot Exam 05/19/2025 05/19/2024, 0 03/06/2023, 01/03/2022, Additional history exists Depression Screening 08/10/2025 08/10/2024 CKD HGB USE SMARTSET 54517 10/20/202510/20, 10/13/2024, 10/13/2024, Additional history exists Sigmoidoscopy [...] this encounter Medical Devices Implanted Type Area Tile Machine Operator Device Identifier Shelf Expiration Date Model / Serial / Lot Clareon Iol Aspheric Hydrophobic Acrylic Iol Implanted:Qty: 1 on 04/23/2023 by [facility] L[facility] Left: Eye 11/12/2025 CNA0T0 / [id number] 136 / Viatorr Tips Endoprosthesis 8-10 Mm X 8cm / 2cm Implanted:Qty: 1 on 10/07/2020 by Go Alvarado MD at [facility] Right: Abdomen 03/03/2023 [id number] / / [id number] Description:Viatorr TIPS End oprosthesis 8-10 mm x 8cm / 2cm, Manufactored by [employer] [place] [employer] [email or web address] Syr Pf 2ml Embospheres 100-300 - [id number] Implanted:Qty: 1 on 04/18/2021 by [facility] Lim [facility] Left: Abdomen [employer] [id number] 11/25/2023 S220GH / / [id number] -5 Lipiodol Injection - [id number] Implanted:Qty: 1 on 03/28/2022 at [facility] [employer] 03/01/2023 51865-13 01-2 / / [id number] Syr Pf 2ml Embospheres 100-300 - [id number] Implanted:Qty: 1 on 03/28/2022 at [facility] [employer] [id number] 08/31/2024 S220GH / / [id number] -5 Clareon Iol Aspheric Hydrophobic Acrylic Iol Implanted:Qty: 1 on 04/02/2023 by Cody [facility] at [facility] Right: Eye JAZMIN 11/12/2025 CNA0T0 / [id number] 139 / Syr Pf 2ml Embospheres 100-300 - [id number] Implanted:Qty: 1 on 06/11/2024 at [facility] [employer] [id number] 01/02/2027 S220GH / / [id number] -5 Cath Diag Cobra 2 [id number] - [id number] Implanted:Qty: 1 on 06/11/2024 at [facility] [employer] [id number] 10/06/2026 [id number] / / [id number] documented as of this encounter Advance Directives Documents on File Type Date Recorded 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
--- OUTSIDE RECORDS SUMMARY | 2024-12-04 16:53 | External Medical Summary | Summary of Care ---
Author Name Unknown Organization [facility] Address [address] [facility] [place] [address] Phone [phone] Care Team Providers Care Mri Tech Name Role Phone Kristen Vences DO Primary Care Provider [phone] Reason for Visit * Reason Onset Date Comments Appointment 10/02/2024 Encounter Details Date Type Department Care Team (Late st Contact Info) Description 10/02/2024 Telephone Gastroenterology, [facility] [address] [place] [address] Carlee Salazar CRNP [address] [place] [address] Appointment Allergies No known active allergiesdocumented as [...] mRNA, LNP-s, No Pre serve, 2-Dose Series ([employer]) 03/08/2021,02/15/2021 COVID-19, MRNA-LNP, PF, 50 M CG/0.5 [...] sure how he can make it to [facility] with out having an accident . Pt [...] to renal dysfunction) 6 week follow-up with Lamar in-person I also placed lab orders, he will be having a paracentesis on 10/06 and will have blood work done at [facility]. Please fax blood work orders over so they can draw at that time. JEFF Ambriz documented in this encounter Plan of Treatment Upcoming Encounters Date Type Department Care Team (Late st Contact Info) Description 11/02/2024 12:00 PM EST Office Visit Pulmonary Medicine, [facility] [address] [facility] [place] [phone] Jordan Stanley MD [address] [facility] [place] [address] 11/09/2024 2:30 PM EST Office Visit Gastroenterology, [facility] [address] [place] [address] Lamar Tatum CRNP [address] [place] [address] 01/13/2025 2:00 PM EST Office Visit Hematology/Oncology [facility] [address] [facility] [place] [id number] Jennifer Ramires MD [address] [facility] [place] [address] 01/26/2025 3:15 PM EST Office Visit Urology, [facility] [address] [place] [address] Frank Peraza MD [address] [place] [address] 03/29/2025 2:45 PM EDT Office Visit Dermatology [facility] [address] [facility] [place] [address] Francisco Watson MD [address] [facility] [place] [address] Scheduled Procedures Name Priority Associated Diagnoses Date/Ti [...] Additional history exists CKD PHOS USE SMARTSET 90184 05/19/202505/02, 05/08/2024, 04/07/2024, Additional history exists Diabetic Foot Exam 05/19/2025 05/19/2024, 0 03/06/2023, 01/03/2022, Additional history exists Depression Screening 08/10/2025 08/10/2024 CKD HGB USE SMARTSET 11521 10/20/202510/20, 10/13/2024, 10/13/2024, Additional history exists Sigmoidoscopy [...] this encounter Medical Devices Implanted Type Area Interlocking Tower Operator Device Identifier Shelf Expiration Date Model / Serial / Lot Clareon Iol Aspheric Hydrophobic Acrylic Iol Implanted:Qty: 1 on 04/23/2023 by Cody Gonzalez DO at OR [facility] Lens Left: Eye 11/12/2025 CNA0T0 / [id number] / Viatorr Tips Endoprosthesis 8-10 Mm X 8cm / 2cm Implanted:Qty: 1 on 10/07/2020 by Go Alvarado MD at [facility] Right: Abdomen 03/03/2023 [id number] / / [id number] Description:Viatorr TIPS End oprosthesis 8-10 mm x 8cm / 2cm, Manufactored by [employer] [email or web address] Syr Pf 2ml Embospheres 100-300 - [id number] Implanted:Qty: 1 on 04/18/2021 by Kevin Lim DO at OR [facility] Left: Abdomen [employer] [id number] 11/25/2023 [id number] / / [id number] Lipiodol Injection - [id number] Implanted:Qty: 1 on 03/28/2022 at [facility] [employer] 03/01/2023 [id number] 01-2 / / [id number] Syr Pf 2ml Embospheres 100-300 - [id number] Implanted:Qty: 1 on 03/28/2022 at [facility] [employer] [id number] 08/31/2024 S220GH / / [id number] Clareon Iol Aspheric Hydrophobic Acrylic Iol Implanted:Qty: 1 on 04/02/2023 by Cody Gonzalez DO at OR [facility] Right: Eye [employer] 11/12/2025 CNA0T0 / [id number] / Syr Pf 2ml Embospheres 100-300 - [id number] Implanted:Qty: 1 on 06/11/2024 at [facility] [employer] [id number] 01/02/2027 S220GH / / [id number] Cath Diag Cobra 2 [id number] - [id number] Implanted:Qty: 1 on 06/11/2024 at [facility] [employer] [id number] 10/06/2026 [id number] / / [id number] documented as of this encounter Advance Directives Documents on File Type Date Recorded 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
--- OUTSIDE RECORDS SUMMARY | 2024-12-04 16:53 | External Medical Summary ---
Author Name Unknown Address Unknown Organization [id number]:[facility]ATORY [facility] [place] - [address] [facility] [address] Laboratory Report Ordering Provider Test Date Status CHELSEY BISWAS 11/02/2024 11:45:00 Final Observation Date Value Abnormality Reference (Units ) Status SYNC LEUKOCYTES IN BLOOD BY AUTOMATED COUNT 11/02/2024 11:45:00 2.79 Below low normal 4.00-10.80 (K/uL) Final Segs 11/02/2024 11:45:00 62.6 40.0-75.0 (%) Final Lymphs % 11/02/2024 11:45:00 21.9 18.0-42.0 (%) Final Monos 11/02/2024 11:45:00 6.5 1.0-11.0 (%) Final Eosinophils 11/02/2024 11:45:00 7.5 Above high normal 0.0-6.0 (%) Final Basos 11/02/2024 11:45:00 0.4 0.0-2.0 (%) Final Immature Granulocyte, Percent 11/02/2024 11:45:00 1.1 0.0-2.0 (%) Final Absolute Segs 11/02/2024 11:45:00 1.75 Below low normal 1.80-7.70 (K/uL) Final Lymphs, absolute 11/02/2024 11:45:00 0.61 Below low normal 1.00-4.80 (K/ul) Final Monos, Abs 11/02/2024 11:45:00 0.18 0.00-1.10 (K/uL) Final Eos, Abs 11/02/2024 11:45:00 0.21 0.00-0.70 (K/uL) Final Basos, Abs 11/02/2024 11:45:00 0.01 0.00-0.20 (K/uL) Final Immature Granulocytes, Number 11/02/2024 11:45:00 0.03 0.00-0.20 (K/uL) Final Performing Location LABORATORY [facility] [place] - [facility] [place] [address]
--- OUTSIDE RECORDS SUMMARY | 2024-12-04 16:53 | External Medical Summary ---
Author Name Unknown Address Unknown Organization K01:LABORATORY [address] [address] Laboratory Report Ordering Provider Test Date Status CHELSEY BISWAS 11/02/2024 11:45:00 Final Observation Date Value Abnormality Reference (Units ) Status WBC, Total 11/02/2024 11:45:00 2.79 Below low normal 4.00-10.80 (K/uL) Final RBC 11/02/2024 11:45:00 2.09 4.50-5.25 (M/uL) Final Hemoglobin 11/02/2024 11:45:00 7.3 Below low normal 14.0-16.8 (g/dL) Final HCT 11/02/2024 11:45:00 23.1 Below low normal 40.0-48.4 (%) Final MCV 11/02/2024 11:45:00 110.5 82.0-99.5 (fL) Final MCH 11/02/2024 11:45:00 34.9 27.0-34.0 (pg) Final MCHC 11/02/2024 11:45:00 31.6 32.0-36.0 (g/dL) Final RDW 11/02/2024 11:45:00 17.5 11.5-15.5 (%) Final Platelets 11/02/2024 11:45:00 65 Below low normal 140-400 (K/uL) Final MPV 11/02/2024 11:45:00 12.3 6.6-11.1 (fL) Final Nucleated erythrocytes/100 leukocytes [Ratio] in Blood by Automated count 11/02/2024 11:45:00 0 <=0 (/100 WBCs) Final Performing Location [facility] [place] [address] [facility] [address]
[2024-12-04 17:02] LABS: Anion Gap 4 (3-11); BUN Creatinine Ratio 27.7 (10-20); Blood Urea Nitrogen 38 mg/dl (6-23); Calcium 8.1 mg/dl (8.6-10.3); Carbon Dioxide 24 mmol/L (21-32); Chloride 116 mmol/L (98-107); Glucose 182 mg/dl (70-99(Fasting)); Potassium 4.7 mmol/L (3.5-5.1); Sodium 144 mmol/L (136-145)
[2024-12-04] MEDS ORDERED: DEXTROSE 50% 50 ML SYRINGE IV PRN (17:33)
[2024-12-04] MEDS ORDERED: GLUCOSE 40% GEL 15 GM TUBE PO PRN (17:33)
[2024-12-04] MEDS ORDERED: GLUCAGON FOR INJ 1 MG VIAL SQ PRN (17:33)
[2024-12-04] MEDS ORDERED: CARBOHYDRATES FOR HYPOGLYCEMIA PO PRN (17:33)
[2024-12-04] MEDS ORDERED: oxyBUTYnin chloride 5 MG TAB PO PRN (17:33)
[2024-12-04] MEDS ORDERED: GLUCOSE 10 TAB/TUBE PO PRN (17:33)
[2024-12-04] MEDS: INSULIN ASPART PER UNIT CHARGE SC SCH (18:06)
[2024-12-04 19:28] LABS: Lymphocytes, Fluid 43 %; Mono,Macrophage,Mesothelial 46 %; Neutrophils, Fluid 11 %
--- NOTE | 2024-12-04 19:37 | Ultrasound Report ---
US duplex portal hepatic veins CLINICAL HISTORY: TIPS assessment TECHNIQUE: Grayscale, color and spectral waveform Doppler examination of the abdomen was performed. Comparison: Comparison is made to CT abdomen pelvis 12/04/2024 FINDINGS: The hepatic veins and right and middle portal veins are patent with no thrombus identified. Flow is i n the correct direction. The TIPS is patent. The left portal vein is not seen within the field of vie w. IMPRESSION: Patent TIPS stent. Normal vasculature with flow in the appropriate direction, however the left portal vein is not visualized. ACT 112: Negative or not required by law. Electronically signed by: Arik Flowers M.D. 12/04/2024 7:34 PM
[2024-12-04] MEDS: PANTOprazole 40 MG TAB PO SCH (21:37)
[2024-12-04] MEDS: rifAXIMin 550 MG TABLET PO SCH (21:37)
[2024-12-05] MEDS: INSULIN ASPART PER UNIT CHARGE SC SCH ×2 (00:38→12:16)
[2024-12-05 06:47] LABS: Hematocrit (blood only) 23.7 % (42.0-52.0); Hemoglobin 7.7 g/dl (14.0-18.0); Mean Corpuscular Hemoglobin 33.9 pg (25.0-34.0); Mean Corpuscular Hgb Conc 32.5 g/dL (32.0-36.0); Mean Corpuscular Volume 104.4 fL (80.0-100.0); Mean Platelet Volume 12.7 fL (9.4-12.4); Nucleated RBC # (auto) 0.02 K/uL (0.00-0.12); Nucleated RBC % (auto) 0.7 %; Platelet Count 62 K/uL (130-400); RDW Coefficient of Variation 19.8 % (11.5-14.5); Red Blood Count 2.27 M/uL (4.70-6.10); White Blood Count 2.72 K/ul (4.8-10.8)
[2024-12-05 07:09] LABS: Albumin Globulin Ratio 0.9 (0.9-2); Albumin Level 2.5 gm/dl (3.4-5.0); BUN Creatinine Ratio 25.7 (10-20); Bilirubin,Total 5.1 mg/dl (0.2-1.0); Calcium 7.9 mg/dl (8.6-10.3); Creatinine Clr Calc Pharmacy 49.2 ml/min; Globulin 2.7 gm/dl (2.5-4.0); Magnesium 1.6 mg/dl (1.7-2.4); Potassium 4.2 mmol/L (3.5-5.1); Total Protein 5.2 gm/dl (6.0-8.3)
[2024-12-05 07:15] LABS: INR 1.2 (0.9-1.1); Prothrombin Time 12.6 Seconds (9.0-12.0)
[2024-12-05 08:34] LABS: Estimated Average Glucose 105 mg/dl; Hemoglobin A1C 5.3 % (4.5-5.6)
[2024-12-05] MEDS: MAGNESIUM CHLORIDE W/CALCIUM 64MG DELAYED REL TAB PO SCH (09:11)
[2024-12-05] MEDS: FERROUS SULFATE 325 MG TAB PO SCH (09:12)
[2024-12-05] MEDS: TRIAMCINOLONE ACET 0.1% CR 15 GM TUBE TOP SCH (09:12)
[2024-12-05] MEDS: OXYBUTYNIN CHLORIDE XL 5 MG TABCR PO SCH (09:12)
[2024-12-05] MEDS: ZINC SULFATE 220 MG CAPSULE PO SCH (09:12)
[2024-12-05] MEDS: allopurinoL 100 MG TAB PO SCH (09:12)
[2024-12-05] MEDS: DULoxetine HCL 30 MG CAP PO SCH (09:12)
[2024-12-05] MEDS: FINASTERIDE 5 MG TAB PO SCH (09:13)
[2024-12-05] MEDS: MAGNESIUM OXIDE 400 MG TAB PO SCH (09:15)
--- NOTE | 2024-12-05 09:38 | Gastrointestinal Consultation ---
Date of Consultation December 05, 2024 Assessment & Plan (1) Hepatic encephalopathy: Pleasant man with end stage liver disease who came in with hepatic encephalopathy that has resolved. There is no obvious precipitating factor contributing to his development of encephalopathy. However he has resolved com pletely at this time. I would just continue with his treatment as you are doing. He can have his diet advanced from my standpoint and be discharged fairly soon. 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 He tells me his son told him he was doing "strange things". Today he is alert, communicative and completely oriented to person, place time and situation. Patient states he takes his crystalose as prescribed and usually has a couple of bowel movements per day. He also takes xifaxan for his encephalopathy. He is not aware of any thing going on that could have contributed to his encephalopathy. He denies fevers, chills or abdominal pain. He denies any signs of bleeding. Paracentesis yesterday did not show any signs of SBP Allergies Allergy/AdvReac Type Severity Reaction Status Date / Time No Known Allergies Allergy Mild Verified 12/03/24 09:15 Home Medications Medication Instructions Recorded Confirmed Type allopurinol 100 mg tablet 200 mg PO QAM 05/16/20 12/04/24 History ferrous sulfate 325 mg (65 mg 650 mg PO QAM 05/17/23 12/04/24 History iron) tablet (iron) [id number] acid-vit 1 tab PO DAILY 05/17/23 12/04/24 History K-lycop 400 mcg-20 mcg-370 mcg tablet (Men's 50 Plus Multivitamin) duloxetine 30 mg capsule,delayed 30 mg PO QAM 02/02/24 12/04/24 History release pantoprazole 40 mg tablet,delayed 40 mg PO AMPM 02/02/24 12/04/24 History release rifaximin 550 mg tablet (Xifaxan) 550 mg PO AMHS 02/02/24 12/04/24 History finasteride 5 mg tablet 5 mg PO QAM 03/20/24 12/04/24 History insulin glargine 100 unit/mL (3 25 unit subcut QPM 05/20/24 12/04/24 History mL) subcutaneous pen (Lantus Solostar U-100 Insulin) oxybutynin chloride 5 mg tablet 5 mg PO TID PRN Bladder Spasms 05/20/24 12/04/24 History solifenacin 5 mg tablet 5 mg PO DAILY 05/20/24 12/04/24 History triamcinolone acetonide 0.1 % 1 applic topical DAILY 05/20/24 12/04/24 History topical cream zinc gluconate 50 mg tablet 50 mg PO DAILY ##0 05/20/24 12/04/24 History furosemide 40 mg tablet 40 mg PO QAM #30 tabs 05/30/24 12/04/24 Rx spironolactone 100 mg tablet 100 mg PO QAM #30 tabs 05/30/24 12/04/24 Rx magnesium chloride 64 mg 64 mg PO QAM 08/04/24 12/04/24 History (magnesium chloride) tablet,delayed release (Mag 64) lactulose 10 gram oral packet 10 g PO BID 12/04/24 12/04/24 History (Kristalose) Patient History Medical History CKD (chronic kidney disease) stage 3, GFR 30-59 ml/min Thrombocytopenia DM type 2 (diabetes mellitus, type 2) Hx of malignant neoplasm of prostate History of blood transfusion 11/2022 Hepatocellular carcinoma Spinal fracture of T12 vertebra History of recent hospitalization 06/2023 [facility] hepatic encephalopathy Liver spots Under surveillance, stable per patient Anxiety and depression 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 Anemia of chronic disease under surveillance History of panic attacks Gout No current issues GERD (gastroesophageal reflux disease) GAVE (gastric antral vascular ectasia) Hypertension Hx Esophageal varices EGD 05/22/23 ([facility]): Grade 1 varices in distal esophagus without high risk stigmata Upper GI bleed Hx Psoriasis Surgical History History of left cataract surgery History of right cataract surgery History of prostate biopsy malignant S/P TIPS (transjugular intrahepatic portosystemic shunt) History of esophagogastroduodenoscopy (EGD) Most recent 05/2023 [facility] History of colonoscopy with polypectomy History of tonsillectomy and adenoidectomy History of abdominal paracentesis Multiple, most recent 01/2023 Family History Father , "3/4 liver gone due to drinking" Colorectal cancer, Onset Age: 63 Mother Lung cancer Daughter Cancer cervical and thyroid cancers Ovarian cancer Other No family history of adverse response to anesthesia 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 Smoking Status: Never smoker Second Hand Exposure: No; Hx Alcohol Use: No Hx Substance Use: No Preferred Language: Chinese Communication Ability: Effective Communication Ability Comment: AMS, unable to communicate Visual Impairment: No Limitations Hearing Ability: Normal Financial Auditor Required: No Beliefs That Will Affect Care: None marital status: Current Living Situation: Spouse Current Living Situation Comment: 1 level single family home 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 How many Children do You have: 6 How many Children do You have Comment: one , eldest daughter in her sleep from seizure disorder Other Information That Helps Us Care for You: No Feels Safe at Home: Yes Childhood Exposure to Second-Hand Smoke: Yes Diet Comment: "I watch my sugar, average fasting is 140 mg/dl" caffeine: Yes (cola, sugar free, decaf) during the past year weight has: remained stable Dental Care, Regularly: No Physical Activity Frequency: Does not Exercise Seatbelt Use: always Sunscreen Use: Yes Assistive Devices: Glasses and Walker Review of Systems Review of Systems: All systems reviewed & are unremarkable except as noted in HPI & below Physical Exam Constitutional: WD/WN, vitals as above + ill appearing and + disheveled Eyes: sclerae not anicteric Neck: trachea midline, no thyromegaly Respiratory: normal respiratory effort, lungs clear to auscultation Cardiovascular: RRR, no murmur, no edema Gastrointestinal (Abdomen): normal bowel sounds, soft, nontender, no hepatosplenomegaly Results & Data Vital Signs (Past 12 Hours) Vital Signs Temp Pulse Resp BP Pulse Ox O2 Del Method 12/05/24 08:11 36.6 C 64 18 155/68 H 99 Room Air 12/05/24 03:53 36.6 C 61 18 142/65 H 96 Room Air 12/04/24 22:55 36.6 C 58 L 18 130/64 96 Room Air Laboratory Results 12/05/24 12/05/24 12/05/24 Range/Units 06:39 06:17 00:33 WBC 2.72 L (4.8-10.8) K/ul RBC 2.27 L (4.70-6.10) M/uL Hgb 7.7 L (14.0-18.0) g/dl POC Hgb (14.0-18.0) g/dl Hct 23.7 L (42.0-52.0) % POC Hct (42-52) % MCV 104.4 H (80.0-100.0) fL MCH 33.9 (25.0-34.0) pg MCHC 32.5 (32.0-36.0) g/dL RDW Std Deviation 75.0 H (36.4-46.3) fL RDW Coeff of Violetta 19.8 H (11.5-14.5) % Plt Count 62 L (130-400) K/uL MPV 12.7 H (9.4-12.4) fL Immature Gran % (Auto) % Neut % (Auto) % Lymph % (Auto) % [place] % (Auto) % Eos % (Auto) % Baso % (Auto) % Neut # (Auto) (1.40-6.50) K/uL Lymph # (Auto) (1.20-3.40) K/uL [place] # (Auto) (0.11-0.59) K/uL Eos # (Auto) (0.00-0.50) K/uL Baso # (Auto) (0.00-0.20) K/uL Immature Gran # (Auto) (0.01-0.20) K/uL Absolute Nucleated RBC 0.02 (0.00-0.12) K/uL Nucleated RBC % (auto) 0.7 % PT 12.6 H (9.0-12.0) Seconds INR 1.2 H (0.9-1.1) POC Sodium (135-144) mmol/L Sodium 145 (136-145) mmol/L POC Potassium (3.3-5.0) mmol/L Potassium 4.2 (3.5-5.1) mmol/L POC Chloride (101-112) mmol/L Chloride 117 H (98-107) mmol/L Carbon Dioxide 24 (21-32) mmol/L POC Total CO2 (24-31) mmol/L Anion Gap 4 (3-11) POC Anion Gap (16-25) mmol/L POC BUN (7-18) mg/dl BUN 35 H (6-23) mg/dl Creatinine 1.36 (0.6-1.4) mg/dl POC Creatinine (0.6-1.3) mg/dl Est Cr Clr Drug Dosing 49.2 eGFR 54.61 BUN/Creatinine Ratio 25.7 H (10-20) Glucose 141 H (70-99(Fasting)) mg/dl POC Glucose 145 H 145 H (70-99) mg/dl POC Glucose (other) (70-99) mg/dl Estimat Average Glucose 105 mg/dl Hemoglobin A1c 5.3 (4.5-5.6) % Calcium 7.9 L (8.6-10.3) mg/dl POC Ioniz Calcium Meryl (1.12-1.32) mmol/l Phosphorus 5.0 H (2.5-4.9) mg/dl Magnesium 1.6 L (1.7-2.4) mg/dl Total Bilirubin 5.1 H (0.2-1.0) mg/dl AST 33 (13-39) U/L ALT 19 (7-52) U/L Alkaline Phosphatase 115 H (34-104) U/L Ammonia (18-72) umol/L Troponin I High Sens (0-20) pg/ml Total Protein 5.2 L (6.0-8.3) gm/dl Albumin 2.5 L (3.4-5.0) gm/dl Globulin 2.7 (2.5-4.0) gm/dl Albumin/Globulin Ratio 0.9 (0.9-2) Lipase (11-82) U/L Urine Color Urine Appearance (Clear) Urine pH (4.5-7.5) Ur Specific [place] (1.000-1.030) Urine Protein (Negative) Urine Glucose (UA) (Negative) Urine Ketones (Negative) Urine Blood (Negative) Urine Nitrite (Negative) Urine Bilirubin (Negative) Urine Urobilinogen (Negative) Ur Leukocyte Esterase (Negative) Urine WBC (Auto) (0-5) /hpf Urine RBC (Auto) (0-2) /hpf U Hyaline Cast (Auto) (0-2) /lpf U Epithel Cells (Auto) (0-2) /hpf Urine Bacteria (Auto) (None Seen) Fluid Neutrophils % % Fluid Lymphocytes % % Fluid Meso/Macro/Broome % % Fluid Comment Peritoneal Color Peritoneal Appearance Peritoneal WBC (Auto) (0-300) /ul Peritoneal RBC (Auto) /uL Peritoneal Tot Protein gm/dl Peritoneal Albumin gm/dl 12/04/24 12/04/24 12/04/24 Range/Units Unknown 17:06 16:29 WBC (4.8-10.8) K/ul RBC (4.70-6.10) M/uL Hgb (14.0-18.0) g/dl POC Hgb (14.0-18.0) g/dl Hct (42.0-52.0) % POC Hct (42-52) % MCV (80.0-100.0) fL MCH (25.0-34.0) pg MCHC (32.0-36.0) g/dL RDW Std Deviation (36.4-46.3) fL RDW Coeff of Violetta (11.5-14.5) % Plt Count (130-400) K/uL MPV (9.4-12.4) fL Immature Gran % (Auto) % Neut % (Auto) % Lymph % (Auto) % [place] % (Auto) % Eos % (Auto) % Baso % (Auto) % Neut # (Auto) (1.40-6.50) K/uL Lymph # (Auto) (1.20-3.40) K/uL [place] # (Auto) (0.11-0.59) K/uL Eos # (Auto) (0.00-0.50) K/uL Baso # (Auto) (0.00-0.20) K/uL Immature Gran # (Auto) (0.01-0.20) K/uL Absolute Nucleated RBC (0.00-0.12) K/uL Nucleated RBC % (auto) % PT (9.0-12.0) Seconds INR (0.9-1.1) POC Sodium (135-144) mmol/L Sodium 144 (136-145) mmol/L POC Potassium (3.3-5.0) mmol/L Potassium 4.7 (3.5-5.1) mmol/L POC Chloride (101-112) mmol/L Chloride 116 H (98-107) mmol/L Carbon Dioxide 24 (21-32) mmol/L POC Total CO2 (24-31) mmol/L Anion Gap 4 (3-11) POC Anion Gap (16-25) mmol/L POC BUN (7-18) mg/dl BUN 38 H (6-23) mg/dl Creatinine 1.37 (0.6-1.4) mg/dl POC Creatinine (0.6-1.3) mg/dl Est Cr Clr Drug Dosing Not Reportable eGFR 54.13 BUN/Creatinine Ratio 27.7 H (10-20) Glucose 182 H (70-99(Fasting)) mg/dl POC Glucose 175 H (70-99) mg/dl POC Glucose (other) (70-99) mg/dl Estimat Average Glucose mg/dl Hemoglobin A1c (4.5-5.6) % Calcium 8.1 L (8.6-10.3) mg/dl POC Ioniz Calcium Meryl (1.12-1.32) mmol/l Phosphorus (2.5-4.9) mg/dl Magnesium (1.7-2.4) mg/dl Total Bilirubin (0.2-1.0) mg/dl AST (13-39) U/L ALT (7-52) U/L Alkaline Phosphatase (34-104) U/L Ammonia (18-72) umol/L Troponin I High Sens (0-20) pg/ml Total Protein (6.0-8.3) gm/dl Albumin (3.4-5.0) gm/dl Globulin (2.5-4.0) gm/dl Albumin/Globulin Ratio (0.9-2) Lipase (11-82) U/L Urine Color Urine Appearance (Clear) Urine pH (4.5-7.5) Ur Specific [place] (1.000-1.030) Urine Protein (Negative) Urine Glucose (UA) (Negative) Urine Ketones (Negative) Urine Blood (Negative) Urine Nitrite (Negative) Urine Bilirubin (Negative) Urine Urobilinogen (Negative) Ur Leukocyte Esterase (Negative) Urine WBC (Auto) (0-5) /hpf Urine RBC (Auto) (0-2) /hpf U Hyaline Cast (Auto) (0-2) /lpf U Epithel Cells (Auto) (0-2) /hpf Urine Bacteria (Auto) (None Seen) Fluid Neutrophils % 11 % Fluid Lymphocytes % 43 % Fluid Meso/Macro/Broome % 46 % Fluid Comment Peritoneal Color Yellow Peritoneal Appearance Turbid Peritoneal WBC (Auto) 123 (0-300) /ul Peritoneal RBC (Auto) < 2000 /uL Peritoneal Tot Protein < 3.0 gm/dl Peritoneal Albumin < 1.5 gm/dl 12/04/24 12/04/24 12/04/24 Range/Units 12:20 12:05 11:40 WBC (4.8-10.8) K/ul RBC (4.70-6.10) M/uL Hgb (14.0-18.0) g/dl POC Hgb 7.5 L (14.0-18.0) g/dl Hct (42.0-52.0) % POC Hct 22 L (42-52) % MCV (80.0-100.0) fL MCH (25.0-34.0) pg MCHC (32.0-36.0) g/dL RDW Std Deviation (36.4-46.3) fL RDW Coeff of Violetta (11.5-14.5) % Plt Count (130-400) K/uL MPV (9.4-12.4) fL Immature Gran % (Auto) % Neut % (Auto) % Lymph % (Auto) % [place] % (Auto) % Eos % (Auto) % Baso % (Auto) % Neut # (Auto) (1.40-6.50) K/uL Lymph # (Auto) (1.20-3.40) K/uL [place] # (Auto) (0.11-0.59) K/uL Eos # (Auto) (0.00-0.50) K/uL Baso # (Auto) (0.00-0.20) K/uL Immature Gran # (Auto) (0.01-0.20) K/uL Absolute Nucleated RBC (0.00-0.12) K/uL Nucleated RBC % (auto) % PT (9.0-12.0) Seconds INR (0.9-1.1) POC Sodium 146 H (135-144) mmol/L Sodium (136-145) mmol/L POC Potassium 4.8 (3.3-5.0) mmol/L Potassium (3.5-5.1) mmol/L POC Chloride 112 (101-112) mmol/L Chloride (98-107) mmol/L Carbon Dioxide (21-32) mmol/L POC Total CO2 20 L (24-31) mmol/L Anion Gap (3-11) POC Anion Gap 19.0 (16-25) mmol/L POC BUN 35 H (7-18) mg/dl BUN (6-23) mg/dl Creatinine (0.6-1.4) mg/dl POC Creatinine 1.5 H (0.6-1.3) mg/dl Est Cr Clr Drug Dosing eGFR BUN/Creatinine Ratio (10-20) Glucose (70-99(Fasting)) mg/dl POC Glucose (70-99) mg/dl POC Glucose (other) 199 H (70-99) mg/dl Estimat Average Glucose mg/dl Hemoglobin A1c (4.5-5.6) % Calcium (8.6-10.3) mg/dl POC Ioniz Calcium Meryl 1.13 (1.12-1.32) mmol/l Phosphorus (2.5-4.9) mg/dl Magnesium (1.7-2.4) mg/dl Total Bilirubin (0.2-1.0) mg/dl AST (13-39) U/L ALT (7-52) U/L Alkaline Phosphatase (34-104) U/L Ammonia 58.0 (18-72) umol/L Troponin I High Sens (0-20) pg/ml Total Protein (6.0-8.3) gm/dl Albumin (3.4-5.0) gm/dl Globulin (2.5-4.0) gm/dl Albumin/Globulin Ratio (0.9-2) Lipase (11-82) U/L Urine Color Yellow Urine Appearance Clear (Clear) Urine pH 5.5 (4.5-7.5) Ur Specific [place] 1.027 (1.000-1.030) Urine Protein Negative (Negative) Urine Glucose (UA) Negative (Negative) Urine Ketones Negative (Negative) Urine Blood Negative (Negative) Urine Nitrite Negative (Negative) Urine Bilirubin Negative (Negative) Urine Urobilinogen Negative (Negative) Ur Leukocyte Esterase 1+ H (Negative) Urine WBC (Auto) 6-10 H (0-5) /hpf Urine RBC (Auto) 0-2 (0-2) /hpf U Hyaline Cast (Auto) 0-2 (0-2) /lpf U Epithel Cells (Auto) 0-2 (0-2) /hpf Urine Bacteria (Auto) None Seen (None Seen) Fluid Neutrophils % % Fluid Lymphocytes % % Fluid Meso/Macro/[place] % % Fluid Comment Peritoneal Color Peritoneal Appearance Peritoneal WBC (Auto) (0-300) /ul Peritoneal RBC (Auto) /uL Peritoneal Tot Protein gm/dl Peritoneal Albumin gm/dl 12/04/24 Range/Units 11:30 WBC 3.62 L (4.8-10.8) K/ul RBC 2.47 L (4.70-6.10) M/uL Hgb 8.4 L (14.0-18.0) g/dl POC Hgb (14.0-18.0) g/dl Hct 25.2 L (42.0-52.0) % POC Hct (42-52) % MCV 102.0 H (80.0-100.0) fL MCH 34.0 (25.0-34.0) pg MCHC 33.3 (32.0-36.0) g/dL RDW Std Deviation 71.9 H (36.4-46.3) fL RDW Coeff of Violetta 19.6 H (11.5-14.5) % Plt Count 73 L (130-400) K/uL MPV 13.0 H (9.4-12.4) fL Immature Gran % (Auto) 1.4 % Neut % (Auto) 71.5 % Lymph % (Auto) 14.6 % [place] % (Auto) 7.2 % Eos % (Auto) 5.0 % Baso % (Auto) 0.3 % Neut # (Auto) 2.59 (1.40-6.50) K/uL Lymph # (Auto) 0.53 L (1.20-3.40) K/uL [place] # (Auto) 0.26 (0.11-0.59) K/uL Eos # (Auto) 0.18 (0.00-0.50) K/uL Baso # (Auto) 0.01 (0.00-0.20) K/uL Immature Gran # (Auto) 0.05 (0.01-0.20) K/uL Absolute Nucleated RBC 0.02 (0.00-0.12) K/uL Nucleated RBC % (auto) 0.6 % PT 12.4 H (9.0-12.0) Seconds INR 1.2 H (0.9-1.1) POC Sodium (135-144) mmol/L Sodium 144 (136-145) mmol/L POC Potassium (3.3-5.0) mmol/L Potassium 4.8 (3.5-5.1) mmol/L POC Chloride (101-112) mmol/L Chloride 115 H (98-107) mmol/L Carbon Dioxide 24 (21-32) mmol/L POC Total CO2 (24-31) mmol/L Anion Gap 5 (3-11) POC Anion Gap (16-25) mmol/L POC BUN (7-18) mg/dl BUN 40 H (6-23) mg/dl Creatinine 1.45 H (0.6-1.4) mg/dl POC Creatinine (0.6-1.3) mg/dl Est Cr Clr Drug Dosing Not Reportable eGFR 50.57 BUN/Creatinine Ratio 27.6 H (10-20) Glucose 215 H (70-99(Fasting)) mg/dl POC Glucose (70-99) mg/dl POC Glucose (other) (70-99) mg/dl Estimat Average Glucose mg/dl Hemoglobin A1c (4.5-5.6) % Calcium 8.6 (8.6-10.3) mg/dl POC Ioniz Calcium Meryl (1.12-1.32) mmol/l Phosphorus (2.5-4.9) mg/dl Magnesium (1.7-2.4) mg/dl Total Bilirubin 6.1 H (0.2-1.0) mg/dl AST 34 (13-39) U/L ALT 22 (7-52) U/L Alkaline Phosphatase 156 H (34-104) U/L Ammonia (18-72) umol/L Troponin I High Sens 26.3 H (0-20) pg/ml Total Protein 5.9 L (6.0-8.3) gm/dl Albumin 3.0 L (3.4-5.0) gm/dl Globulin 2.9 (2.5-4.0) gm/dl Albumin/Globulin Ratio 1.0 (0.9-2) Lipase 33 (11-82) U/L Urine Color Urine Appearance (Clear) Urine pH (4.5-7.5) Ur Specific [place] (1.000-1.030) Urine Protein (Negative) Urine Glucose (UA) (Negative) Urine Ketones (Negative) Urine Blood (Negative) Urine Nitrite (Negative) Urine Bilirubin (Negative) Urine Urobilinogen (Negative) Ur Leukocyte Esterase (Negative) Urine WBC (Auto) (0-5) /hpf Urine RBC (Auto) (0-2) /hpf U Hyaline Cast (Auto) (0-2) /lpf U Epithel Cells (Auto) (0-2) /hpf Urine Bacteria (Auto) (None Seen) Fluid Neutrophils % % Fluid Lymphocytes % % Fluid Meso/Macro/[place] % % Fluid Comment Peritoneal Color Peritoneal Appearance Peritoneal WBC (Auto) (0-300) /ul Peritoneal RBC (Auto) /uL Peritoneal Tot Protein gm/dl Peritoneal Albumin gm/dl Diagnostic Findings Abdomen/Pelvis CT 12/04/24 11:33 CT abd pelvis IV con only CLINICAL HISTORY: abd pain TECHNIQUE: Helical axial images of the abdomen and pelvis were obtained and displayed. Automated dose lowering techniques and/or adjustment according to patient size were utilized for this exam. This exam was performed with intravenous contrast. CT DOSE: 3157.32 mGy.cm COMPARISON: Comparison is made to CT abdomen pelvis 07/05/2024 FINDINGS: Lower chest: Bibasilar atelectasis versus scarring is seen. Liver: Nodular contour of the liver is seen compatible with cirrhosis. Partially visualized hepatic masses are similar to prior exam within the limits of this technique. A TIPS stent is noted. Gallbladder and biliary tree: Cholelithiasis is seen without evidence of cholecystitis. No intra- or extrahepatic biliary ductal dilation. Pancreas: Cystic lesion in the pancreatic head measures 2 cm. Spleen: Splenomegaly is seen on the spleen measures approximately 13 cm in crani ocaudal dimension. Adrenals: Unremarkable. Kidneys and ureters: Subcentimeter hypodensities are too small to characterize. There is a 15 mm hypodensity in the anterior aspect of the left kidney. Bladder: Diffuse homogeneous wall thickening is seen. Reproductive organs: Prostatomegaly is seen. Bowel: Diverticulosis is seen without diverticulitis. The appendix is normal. A small hiatal hernia is seen. Lymph nodes Retroperitoneal: Subcentimeter lymph nodes are noted. Pelvic: Unremarkable. Mesenteric: Unremarkable. Peritoneum: Moderate ascites is seen. Vessels: Atherosclerotic calcifications are seen. The portal vein is prominent and patent. Sequelae of portal hypertension is seen with some splenic and gastric varices. Abdominal wall: Umbilical hernia containing ascites fluid is seen. Bones: Degenerative changes in the visualized spine. Compression deformities of T11-L2 are seen. IMPRESSION: 1. Cirrhosis is seen with moderate ascites which has increased from admission of 07/05/2024. 2. TIPS stent. 3. Pancreatic head cystic lesion. 4. Cholelithiasis without cholecystitis. 5. Chronic compression deformities in the thoracolumbar spine. 6. Diverticulosis without diverticulitis ACT 112: Negative or not required by law. Electronically signed by: Arik Flowers M.D. 12/04/2024 12:[address] 12/04/24 11:33 CT head/brain wo con CLINICAL HISTORY: ams Technique: Contiguous axial CT images of the head were acquired from the base of the skull to the vertex without intravenous contrast administration. Images were viewed in brain, subdural and bone windows. Automated dose lowering techniques and/or adjustment according to patient size were utilized for this exam. Comparison: Comparison is made to CT head 08/04/2024 Findings: Exam is limited by patient motion. Areas of decreased attenuation are present in the periventricular and subcortical white matter bilaterally consistent with small vessel ischemic disease. Generalized cerebral atrophy with commensurate enlargement of the ventricles, sulci, and cisterns is also present. There is no acute intracranial hemorrhage or evidence of acute territorial infarction. No shift of the midline structures, mass effect, or extra-axial abnormalities are shown. Atherosclerotic calcifications are present in the intracranial segments of the internal carotid arteries. Imaged portions of the paranasal sinuses and mastoid air cells are clear. The orbits appear normal. There are no acute fractures of the calvaria or scalp swelling. Impression: No acute intracranial hemorrhage, no evidence of acute territorial infarction or other acute intracranial disease process. ACT 112: Negative or not required by law. Electronically signed by: Arik Flowers M.D. 12/04/2024 12:16 PM Chest X-Ray 12/04/24 13:11 XR chest 1V portable CLINICAL HISTORY: ams TECHNIQUE: Single frontal radiograph of the chest was obtained. Comparison: Comparison is made to chest radiograph 08/04/2024 FINDINGS: No lines and tubes are seen. Cardiomegaly is noted. The aortic arch is calcified. Peribronchial thickening is seen. No evidence of pleural effusion or pneumothorax. IMPRESSION: Peribronchial thickening is seen compatible with infectious/inflammatory airways disease or viral pneumonia. No yannick consolidation is seen. ACT 112: Negative or not required by law. Electronically signed by: Arik Flowers M.D. 12/04/2024 1:34 PM Portal Vein US 12/04/24 13:34 US duplex portal hepatic veins CLINICAL HISTORY: TIPS assessment TECHNIQUE: Grayscale, color and spectral waveform Doppler examination of the abdomen was performed. Comparison: Comparison is made to CT abdomen pelvis 12/04/2024 FINDINGS: The hepatic veins and right and middle portal veins are patent with no thrombus identified. Flow is in the correct direction. The TIPS is patent. The left portal vein is not seen within the field of view. IMPRESSION: Patent TIPS stent. Normal vasculature with flow in the appropriate direction, however the left portal vein is not visualized. ACT 112: Negative or not required by law. Electronically signed by: Arik Flowers M.D. 12/04/2024 7:34 PM Paracentesis Ultrasound 12/04/24 14:00 ULTRASOUND-GUIDED PARACENTESIS CLINICAL HISTORY: Ascites PROCEDURE: Procedure and risks were explained. Informed consent was obtained. A final timeout was completed. The abdomen was prepped and draped in sterile fashion. 1% lidocaine was utilized for skin anesthesia. Utilizing ultrasound guidance, a 5 Spanish safety centesis catheter was advanced into the right lower quadrant pocket of ascites. Ultrasound images were obtained. A total of 3.2 L of ascites fluid was removed with 1 L sent to the lab for analysis. The catheter was removed and Band-Aid applied. The patient tolerated the procedure well. Vital signs will be monitored postprocedure. IMPRESSION: Ultrasound-guided paracentesis as above. Performed, dictated, and signed by Luis Ellis PA-C; to be co-signed by Dr. Elan Alexander. Electronically signed by: Elan lAexander M.D. 12/04/2024 4:01 PM
--- NOTE | 2024-12-05 10:06 | Hospitalist Progress Note ---
Date of Service December 05, 2024 Assessment & Plan (1) Hepatic encephalopathy: Plan Mr. Hale is a 74 year old male with a past medical history of DM type II, CKD stage III, dyslipidemia, chronic gout of multiple sites, restrictive lung disease, pulmonary hypertension, gastric antral vascular ectasia, esophageal varices, history of portal vein thrombosis, cirrhosis of liver, hepatic encephalopathy, GERD, history of liver cell carcinoma, prostate cancer, radiation cystitis, acquired thrombocytopenia, chronic anemia transfusion dependent who is admitted for acute metabolic encephalopathy #Acute metabolic encephalopathy #Hypernatremia Ammonia level 58 on admission (no nearly as elevated as prior presentations) Suspect Hypernatremia/dehydration contributing received IVF Lactulose continue home rifaximin Delirium precautions UA and biofire negative hold diuretics, resume as able #Decompensated Cirrhosis, ascites and AMS #Hepatocellular Carcinoma #H/O Esophageal Varices & Gastric Antral Vascular Ectasia Pt underwent transarterial bland embolization at [facility] on 06/11. Pt follows w/ [facility] Hematology/Oncology [Dr. Ramires]. Baseline Hgb ~8 per chart review; Hgb 8.2 on admission. - MELD-Na: 18 - lactulose (titrated to 3-4BM / day), Rifaximin 550 BID - Ascites: Hold home Lasix:Jarrod 40:100 iso LUCRETIA and hypernatremia -Consulted IR for paracentesis (last para 12/01, however, protuberant and uncomfortable on exam) - pt s/p paracentesis - 3L removed, no SBP - started Rocephin emp. on admission - EV: No evidence of GIB presently, close monitoring - on protonix for PPx at home, will continue - EV: s/p Protonix 80 x1 - Daily CMP + INR to calculate MELD; low Na diet - GI consulted - US TIPS obtained #Transfusion dependent anemia #Chronic pancyotpenia SCDs Trend CBC last transfusion 12/03/2024 no reported bleed at this time #Episodic Hematuria #Prostate Cancer & Radiation Cystitis Completed radiation therapy to the prostate on 04/05/21; [facility] w/ [facility] [Dr. Ramires]. Pt also follows w/ [facility] Urology [Dr. Frank Peraza]. History of radiation cystitis s/p cystourethroscopy with clot evacuation and fulguration. Can continue [employer] finasteride, oxybutynin and solifenacin. #Diabetes Mellitus Type II [Insulin-Dependent] hold home insulin glargine 25 U (reports intermittent use) SSI and BSG q6 Continue to monitor #LUCRETIA on CKD Stage III Creatinine 1.45 Hold home lasix and aldactone # Gout continue [employer] allopurinol. #Anxiety & Depression: Can continue [employer] duloxetine Diet: advance diet DVT Prophylaxis: SCDs in setting of anemia requiring transfusion Admission and Anticipated Discharge Date Admission Date: December 04, 2024 Subjective Pt seen in follow up of hepatic encephalopathy S/p paracentesis yesterday, no SBP Today mental status much improved, pt answers appropriately, overall feels well Denies fever, chills, chest pain, shortness of breath Acknowledges he may need to titrate up lactulose Review of Systems Review of Systems: All systems reviewed & are unremarkable except as noted in Subjective Physical Exam Physical Exam: GENERAL : chronically ill appearing elderly M in NAD HEENT: NC, AT. MMM. EOMI, clear conjunctiva NECK: Supple HEART: regular no m/r/g LUNGS: CTAB, moving air well. No crackles or wheezes are heard. ABDOMEN: protuberant EXTREMITIES: moves extremities NEUROLOGICAL: awake, alert, oriented, answers appropriately, speech fluent, moving all 4 extremities Skin: + psoriasis patches Results & Data Results & Data Vital Signs (Past 12 Hours) Vital Signs Temp Pulse Resp BP Pulse Ox O2 Del Method 12/05/24 09:26 Room Air 12/05/24 08:11 36.6 C 64 18 155/68 H 99 Room Air 12/05/24 03:53 36.6 C 61 18 142/65 H 96 Room Air 12/04/24 22:55 36.6 C 58 L 18 130/64 96 Room Air Laboratory Results 12/05/24 12/05/24 12/05/24 Range/Units 06:39 06:17 00:33 WBC 2.72 L (4.8-10.8) K/ul RBC 2.27 L (4.70-6.10) M/uL Hgb 7.7 L (14.0-18.0) g/dl POC Hgb (14.0-18.0) g/dl Hct 23.7 L (42.0-52.0) % POC Hct (42-52) % MCV 104.4 H (80.0-100.0) fL MCH 33.9 (25.0-34.0) pg MCHC 32.5 (32.0-36.0) g/dL RDW Std Deviation 75.0 H (36.4-46.3) fL RDW Coeff of Violetta 19.8 H (11.5-14.5) % Plt Count 62 L (130-400) K/uL MPV 12.7 H (9.4-12.4) fL Immature Gran % (Auto) % Neut % (Auto) % Lymph % (Auto) % Collin % (Auto) % Eos % (Auto) % Baso % (Auto) % Neut # (Auto) (1.40-6.50) K/uL Lymph # (Auto) (1.20-3.40) K/uL Collin # (Auto) (0.11-0.59) K/uL Eos # (Auto) (0.00-0.50) K/uL Baso # (Auto) (0.00-0.20) K/uL Immature Gran # (Auto) (0.01-0.20) K/uL Absolute Nucleated RBC 0.02 (0.00-0.12) K/uL Nucleated RBC % (auto) 0.7 % PT 12.6 H (9.0-12.0) Seconds INR 1.2 H (0.9-1.1) POC Sodium (135-144) mmol/L Sodium 145 (136-145) mmol/L POC Potassium (3.3-5.0) mmol/L Potassium 4.2 (3.5-5.1) mmol/L POC Chloride (101-112) mmol/L Chloride 117 H (98-107) mmol/L Carbon Dioxide 24 (21-32) mmol/L POC Total CO2 (24-31) mmol/L Anion Gap 4 (3-11) POC Anion Gap (16-25) mmol/L POC BUN (7-18) mg/dl BUN 35 H (6-23) mg/dl Creatinine 1.36 (0.6-1.4) mg/dl POC Creatinine (0.6-1.3) mg/dl Est Cr Clr Drug Dosing 49.2 eGFR 54.61 BUN/Creatinine Ratio 25.7 H (10-20) Glucose 141 H (70-99(Fasting)) mg/dl POC Glucose 145 H 145 H (70-99) mg/dl POC Glucose (other) (70-99) mg/dl Estimat Average Glucose 105 mg/dl Hemoglobin A1c 5.3 (4.5-5.6) % Calcium 7.9 L (8.6-10.3) mg/dl POC Ioniz Calcium Meryl (1.12-1.32) mmol/l Phosphorus 5.0 H (2.5-4.9) mg/dl Magnesium 1.6 L (1.7-2.4) mg/dl Total Bilirubin 5.1 H (0.2-1.0) mg/dl AST 33 (13-39) U/L ALT 19 (7-52) U/L Alkaline Phosphatase 115 H (34-104) U/L Ammonia (18-72) umol/L Troponin I High Sens (0-20) pg/ml Total Protein 5.2 L (6.0-8.3) gm/dl Albumin 2.5 L (3.4-5.0) gm/dl Globulin 2.7 (2.5-4.0) gm/dl Albumin/Globulin Ratio 0.9 (0.9-2) Lipase (11-82) U/L Urine Color Urine Appearance (Clear) Urine pH (4.5-7.5) Ur Specific [place] (1.000-1.030) Urine Protein (Negative) Urine Glucose (UA) (Negative) Urine Ketones (Negative) Urine Blood (Negative) Urine Nitrite (Negative) Urine Bilirubin (Negative) Urine Urobilinogen (Negative) Ur Leukocyte Esterase (Negative) Urine WBC (Auto) (0-5) /hpf Urine RBC (Auto) (0-2) /hpf U Hyaline Cast (Auto) (0-2) /lpf U Epithel Cells (Auto) (0-2) /hpf Urine Bacteria (Auto) (None Seen) Fluid Neutrophils % % Fluid Lymphocytes % % Fluid Meso/Macro/Collin % % Fluid Comment Peritoneal Color Peritoneal Appearance Peritoneal WBC (Auto) (0-300) /ul Peritoneal RBC (Auto) /uL Peritoneal Tot Protein gm/dl Peritoneal Albumin gm/dl 12/04/24 12/04/24 12/04/24 Range/Units Unknown 17:06 16:29 WBC (4.8-10.8) K/ul RBC (4.70-6.10) M/uL Hgb (14.0-18.0) g/dl POC Hgb (14.0-18.0) g/dl Hct (42.0-52.0) % POC Hct (42-52) % MCV (80.0-100.0) fL MCH (25.0-34.0) pg MCHC (32.0-36.0) g/dL RDW Std Deviation (36.4-46.3) fL RDW Coeff of Violetta (11.5-14.5) % Plt Count (130-400) K/uL MPV (9.4-12.4) fL Immature Gran % (Auto) % Neut % (Auto) % Lymph % (Auto) % Collin % (Auto) % Eos % (Auto) % Baso % (Auto) % Neut # (Auto) (1.40-6.50) K/uL Lymph # (Auto) (1.20-3.40) K/uL Collin # (Auto) (0.11-0.59) K/uL Eos # (Auto) (0.00-0.50) K/uL Baso # (Auto) (0.00-0.20) K/uL Immature Gran # (Auto) (0.01-0.20) K/uL Absolute Nucleated RBC (0.00-0.12) K/uL Nucleated RBC % (auto) % PT (9.0-12.0) Seconds INR (0.9-1.1) POC Sodium (135-144) mmol/L Sodium 144 (136-145) mmol/L POC Potassium (3.3-5.0) mmol/L Potassium 4.7 (3.5-5.1) mmol/L POC Chloride (101-112) mmol/L Chloride 116 H (98-107) mmol/L Carbon Dioxide 24 (21-32) mmol/L POC Total CO2 (24-31) mmol/L Anion Gap 4 (3-11) POC Anion Gap (16-25) mmol/L POC BUN (7-18) mg/dl BUN 38 H (6-23) mg/dl Creatinine 1.37 (0.6-1.4) mg/dl POC Creatinine (0.6-1.3) mg/dl Est Cr Clr Drug Dosing Not Reportable eGFR 54.13 BUN/Creatinine Ratio 27.7 H (10-20) Glucose 182 H (70-99(Fasting)) mg/dl POC Glucose 175 H (70-99) mg/dl POC Glucose (other) (70-99) mg/dl Estimat Average Glucose mg/dl Hemoglobin A1c (4.5-5.6) % Calcium 8.1 L (8.6-10.3) mg/dl POC Ioniz Calcium Meryl (1.12-1.32) mmol/l Phosphorus (2.5-4.9) mg/dl Magnesium (1.7-2.4) mg/dl Total Bilirubin (0.2-1.0) mg/dl AST (13-39) U/L ALT (7-52) U/L Alkaline Phosphatase (34-104) U/L Ammonia (18-72) umol/L Troponin I High Sens (0-20) pg/ml Total Protein (6.0-8.3) gm/dl Albumin (3.4-5.0) gm/dl Globulin (2.5-4.0) gm/dl Albumin/Globulin Ratio (0.9-2) Lipase (11-82) U/L Urine Color Urine Appearance (Clear) Urine pH (4.5-7.5) Ur Specific [place] (1.000-1.030) Urine Protein (Negative) Urine Glucose (UA) (Negative) Urine Ketones (Negative) Urine Blood (Negative) Urine Nitrite (Negative) Urine Bilirubin (Negative) Urine Urobilinogen (Negative) Ur Leukocyte Esterase (Negative) Urine WBC (Auto) (0-5) /hpf Urine RBC (Auto) (0-2) /hpf U Hyaline Cast (Auto) (0-2) /lpf U Epithel Cells (Auto) (0-2) /hpf Urine Bacteria (Auto) (None Seen) Fluid Neutrophils % 11 % Fluid Lymphocytes % 43 % Fluid Meso/Macro/Collin % 46 % Fluid Comment Peritoneal Color Yellow Peritoneal Appearance Turbid Peritoneal WBC (Auto) 123 (0-300) /ul Peritoneal RBC (Auto) < 2000 /uL Peritoneal Tot Protein < 3.0 gm/dl Peritoneal Albumin < 1.5 gm/dl 12/04/24 12/04/24 12/04/24 Range/Units 12:20 12:05 11:40 WBC (4.8-10.8) K/ul RBC (4.70-6.10) M/uL Hgb (14.0-18.0) g/dl POC Hgb 7.5 L (14.0-18.0) g/dl Hct (42.0-52.0) % POC Hct 22 L (42-52) % MCV (80.0-100.0) fL MCH (25.0-34.0) pg MCHC (32.0-36.0) g/dL RDW Std Deviation (36.4-46.3) fL RDW Coeff of Violetta (11.5-14.5) % Plt Count (130-400) K/uL MPV (9.4-12.4) fL Immature Gran % (Auto) % Neut % (Auto) % Lymph % (Auto) % Collin % (Auto) % Eos % (Auto) % Baso % (Auto) % Neut # (Auto) (1.40-6.50) K/uL Lymph # (Auto) (1.20-3.40) K/uL Collin # (Auto) (0.11-0.59) K/uL Eos # (Auto) (0.00-0.50) K/uL Baso # (Auto) (0.00-0.20) K/uL Immature Gran # (Auto) (0.01-0.20) K/uL Absolute Nucleated RBC (0.00-0.12) K/uL Nucleated RBC % (auto) % PT (9.0-12.0) Seconds INR (0.9-1.1) POC Sodium 146 H (135-144) mmol/L Sodium (136-145) mmol/L POC Potassium 4.8 (3.3-5.0) mmol/L Potassium (3.5-5.1) mmol/L POC Chloride 112 (101-112) mmol/L Chloride (98-107) mmol/L Carbon Dioxide (21-32) mmol/L POC Total CO2 20 L (24-31) mmol/L Anion Gap (3-11) POC Anion Gap 19.0 (16-25) mmol/L POC BUN 35 H (7-18) mg/dl BUN (6-23) mg/dl Creatinine (0.6-1.4) mg/dl POC Creatinine 1.5 H (0.6-1.3) mg/dl Est Cr Clr Drug Dosing eGFR BUN/Creatinine Ratio (10-20) Glucose (70-99(Fasting)) mg/dl POC Glucose (70-99) mg/dl POC Glucose (other) 199 H (70-99) mg/dl Estimat Average Glucose mg/dl Hemoglobin A1c (4.5-5.6) % Calcium (8.6-10.3) mg/dl POC Ioniz Calcium Meryl 1.13 (1.12-1.32) mmol/l Phosphorus (2.5-4.9) mg/dl Magnesium (1.7-2.4) mg/dl Total Bilirubin (0.2-1.0) mg/dl AST (13-39) U/L ALT (7-52) U/L Alkaline Phosphatase (34-104) U/L Ammonia 58.0 (18-72) umol/L Troponin I High Sens (0-20) pg/ml Total Protein (6.0-8.3) gm/dl Albumin (3.4-5.0) gm/dl Globulin (2.5-4.0) gm/dl Albumin/Globulin Ratio (0.9-2) Lipase (11-82) U/L Urine Color Yellow Urine Appearance Clear (Clear) Urine pH 5.5 (4.5-7.5) Ur Specific [place] 1.027 (1.000-1.030) Urine Protein Negative (Negative) Urine Glucose (UA) Negative (Negative) Urine Ketones Negative (Negative) Urine Blood Negative (Negative) Urine Nitrite Negative (Negative) Urine Bilirubin Negative (Negative) Urine Urobilinogen Negative (Negative) Ur Leukocyte Esterase 1+ H (Negative) Urine WBC (Auto) 6-10 H (0-5) /hpf Urine RBC (Auto) 0-2 (0-2) /hpf U Hyaline Cast (Auto) 0-2 (0-2) /lpf U Epithel Cells (Auto) 0-2 (0-2) /hpf Urine Bacteria (Auto) None Seen (None Seen) Fluid Neutrophils % % Fluid Lymphocytes % % Fluid Meso/Macro/Collin % % Fluid Comment Peritoneal Color Peritoneal Appearance Peritoneal WBC (Auto) (0-300) /ul Peritoneal RBC (Auto) /uL Peritoneal Tot Protein gm/dl Peritoneal Albumin gm/dl 12/04/24 Range/Units 11:30 WBC 3.62 L (4.8-10.8) K/ul RBC 2.47 L (4.70-6.10) M/uL Hgb 8.4 L (14.0-18.0) g/dl POC Hgb (14.0-18.0) g/dl Hct 25.2 L (42.0-52.0) % POC Hct (42-52) % MCV 102.0 H (80.0-100.0) fL MCH 34.0 (25.0-34.0) pg MCHC 33.3 (32.0-36.0) g/dL RDW Std Deviation 71.9 H (36.4-46.3) fL RDW Coeff of Violetta 19.6 H (11.5-14.5) % Plt Count 73 L (130-400) K/uL MPV 13.0 H (9.4-12.4) fL Immature Gran % (Auto) 1.4 % Neut % (Auto) 71.5 % Lymph % (Auto) 14.6 % Collin % (Auto) 7.2 % Eos % (Auto) 5.0 % Baso % (Auto) 0.3 % Neut # (Auto) 2.59 (1.40-6.50) K/uL Lymph # (Auto) 0.53 L (1.20-3.40) K/uL Collin # (Auto) 0.26 (0.11-0.59) K/uL Eos # (Auto) 0.18 (0.00-0.50) K/uL Baso # (Auto) 0.01 (0.00-0.20) K/uL Immature Gran # (Auto) 0.05 (0.01-0.20) K/uL Absolute Nucleated RBC 0.02 (0.00-0.12) K/uL Nucleated RBC % (auto) 0.6 % PT 12.4 H (9.0-12.0) Seconds INR 1.2 H (0.9-1.1) POC Sodium (135-144) mmol/L Sodium 144 (136-145) mmol/L POC Potassium (3.3-5.0) mmol/L Potassium 4.8 (3.5-5.1) mmol/L POC Chloride (101-112) mmol/L Chloride 115 H (98-107) mmol/L Carbon Dioxide 24 (21-32) mmol/L POC Total CO2 (24-31) mmol/L Anion Gap 5 (3-11) POC Anion Gap (16-25) mmol/L POC BUN (7-18) mg/dl BUN 40 H (6-23) mg/dl Creatinine 1.45 H (0.6-1.4) mg/dl POC Creatinine (0.6-1.3) mg/dl Est Cr Clr Drug Dosing Not Reportable eGFR 50.57 BUN/Creatinine Ratio 27.6 H (10-20) Glucose 215 H (70-99(Fasting)) mg/dl POC Glucose (70-99) mg/dl POC Glucose (other) (70-99) mg/dl Estimat Average Glucose mg/dl Hemoglobin A1c (4.5-5.6) % Calcium 8.6 (8.6-10.3) mg/dl POC Ioniz Calcium Meryl (1.12-1.32) mmol/l Phosphorus (2.5-4.9) mg/dl Magnesium (1.7-2.4) mg/dl Total Bilirubin 6.1 H (0.2-1.0) mg/dl AST 34 (13-39) U/L ALT 22 (7-52) U/L Alkaline Phosphatase 156 H (34-104) U/L Ammonia (18-72) umol/L Troponin I High Sens 26.3 H (0-20) pg/ml Total Protein 5.9 L (6.0-8.3) gm/dl Albumin 3.0 L (3.4-5.0) gm/dl Globulin 2.9 (2.5-4.0) gm/dl Albumin/Globulin Ratio 1.0 (0.9-2) Lipase 33 (11-82) U/L Urine Color Urine Appearance (Clear) Urine pH (4.5-7.5) Ur Specific [place] (1.000-1.030) Urine Protein (Negative) Urine Glucose (UA) (Negative) Urine Ketones (Negative) Urine Blood (Negative) Urine Nitrite (Negative) Urine Bilirubin (Negative) Urine Urobilinogen (Negative) Ur Leukocyte Esterase (Negative) Urine WBC (Auto) (0-5) /hpf Urine RBC (Auto) (0-2) /hpf U Hyaline Cast (Auto) (0-2) /lpf U Epithel Cells (Auto) (0-2) /hpf Urine Bacteria (Auto) (None Seen) Fluid Neutrophils % % Fluid Lymphocytes % % Fluid Meso/Macro/Collin % % Fluid Comment Peritoneal Color Peritoneal Appearance Peritoneal WBC (Auto) (0-300) /ul Peritoneal RBC (Auto) /uL Peritoneal Tot Protein gm/dl Peritoneal Albumin gm/dl Medications Administered Current Inpatient Medications Allopurinol (Allopurinol 100 Mg Tab) 200 mg PO QAM [facility] Stop: 01/04/25 08:59 Last Admin: 12/05/24 09:12 Dose: 200 mg Dextrose (Dextrose 50% 50 Ml Syringe) 25 - 50 ml IV UD PRN; Protocol PRN Reason: Hypoglycemia Protocol Stop: 01/03/25 17:32 Duloxetine HCl (Duloxetine Hcl 30 Mg Cap) 30 mg PO QAM [facility] Stop: 01/04/25 08:59 Last Admin: 12/05/24 09:12 Dose: 30 mg Ferrous Sulfate (Ferrous Sulfate 325 Mg Tab) 650 mg PO QAM [facility] Stop: 01/04/25 08:59 Last Admin: 12/05/24 09:12 Dose: 650 mg Finasteride (Finasteride 5 Mg Tab) 5 mg PO QAM [facility] Stop: 01/04/25 08:59 Last Admin: 12/05/24 09:13 Dose: 5 mg Glucagon (Glucagon For Inj 1 Mg Vial) 1 mg SQ UD PRN; Protocol PRN Reason: Hypoglycemia Protocol Stop: 01/03/25 17:32 Glucose (Glucose 40% Gel 15 Gm Tube) 15 - 30 gm PO UD PRN; Protocol PRN Reason: Hypoglycemia Protocol Stop: 01/03/25 17:32 Glucose (Glucose 10 Tab/Tube) 4 - 8 tab PO UD PRN; Protocol PRN Reason: Hypoglycemia Protocol Stop: 01/03/25 17:32 Guaifenesin (Guaifenesin 600 Mg Tabcr) 600 mg PO Q12 [facility] Stop: 01/04/25 09:54 Ceftriaxone Sodium (Rocephin) 2,000 mg in 50 mls @ 100 mls/hr IV Q24H [facility] Stop: 12/14/24 13:29 Last Infusion: 12/04/24 15:41 Dose: Infused Insulin Aspart (Insulin Aspart Per Unit Charge) 0 units SC Q6 [facility] Stop: 01/04/25 00:00 Last Admin: 12/05/24 06:43 Dose: Not Given Lactulose (Lactulose Syrup 20 Gm/30 Ml Udc) 20 gm PO QID [facility] Stop: 01/03/25 16:59 Last Admin: 12/05/24 09:11 Dose: 20 gm Magnesium Chloride (Magnesium Chloride W/Calcium 64mg Delayed Rel Tab) 64 mg PO QAM [facility] Stop: 01/04/25 08:59 Last Admin: 12/05/24 09:11 Dose: 64 mg Magnesium Oxide (Magnesium Oxide 400 Mg Tab) 400 mg PO BID [facility] Stop: 01/04/25 08:59 Last Admin: 12/05/24 09:15 Dose: 400 mg Metoclopramide HCl (Metoclopramide Hcl Inj 5 Mg/Ml 2 Ml Vial) 5 mg IV Q6H PRN PRN Reason: Nausea Stop: 01/03/25 17:32 Miscellaneous (Carbohydrates For Hypoglycemia ) 15 - 30 gm PO UD PRN PRN Reason: Hypoglycemia Protocol Stop: 01/03/25 17:32 Oxybutynin Chloride (Oxybutynin Chloride 5 Mg Tab) 5 mg PO TID PRN PRN Reason: Bladder Spasms Stop: 01/03/25 17:32 Oxybutynin Chloride (Oxybutynin Chloride Xl 5 Mg Tabcr) 5 mg PO DAILY [facility] Stop: 01/04/25 08:59 Last Admin: 12/05/24 09:12 Dose: 5 mg Pantoprazole Sodium (Pantoprazole 40 Mg Tab) 40 mg PO BID [facility] Stop: 01/03/25 20:59 Last Admin: 12/05/24 09:11 Dose: 40 mg Rifaximin (Rifaximin 550 Mg Tablet) 550 mg PO AMHS [facility] Stop: 01/03/25 20:59 Last Admin: 12/05/24 09:11 Dose: 550 mg Triamcinolone Acetonide (Triamcinolone Acet 0.1% Cr 15 Gm Tube) 1 appln TOP DAILY [facility] Stop: 01/04/25 08:59 Last Admin: 12/05/24 09:12 Dose: 1 appln Zinc Sulfate (Zinc Sulfate 220 Mg Capsule) 220 mg PO DAILY [facility] Stop: 01/04/25 08:59 Last Admin: 12/05/24 09:12 Dose: 220 mg
[2024-12-05] MEDS ORDERED: Nursing to Pharmacy Communication SCH (10:30)
--- NOTE | 2024-12-05 12:09 | XRay Report ---
XR chest 1V portable CLINICAL HISTORY: follow up COMPARISON STUDY: Chest CT on July 05, 2024. Chest radiograph December 04, 2024. FINDINGS: Lung volumes are normal. Lungs are clear. There is no pneumothorax or pleural effusion. Car diac size is normal. Mediastinal contours are normal. There is no evidence for pulmonary edema. IMPRESSION: No acute cardiopulmonary findings. ACT 112: Negative or not required by law. Electronically signed by: Elan Alexander M.D. 12/05/2024 12:08 PM
[2024-12-05] MEDS: guaiFENesin 600 MG TABCR PO SCH (12:17)
[2024-12-05] MEDS: METOCLOPRAMIDE HCL INJ 5 MG/ML 2 ML VIAL IV PRN (16:08)
[2024-12-06 06:41] LABS: Hematocrit (blood only) 24.8 % (42.0-52.0); Hemoglobin 8.1 g/dl (14.0-18.0); Mean Corpuscular Hemoglobin 34.5 pg (25.0-34.0); Mean Corpuscular Hgb Conc 32.7 g/dL (32.0-36.0); Mean Corpuscular Volume 105.5 fL (80.0-100.0); Mean Platelet Volume 12.2 fL (9.4-12.4); Platelet Count 63 K/uL (130-400); RDW Coefficient of Variation 19.1 % (11.5-14.5); RDW Standard Deviation 72.2 fL (36.4-46.3); Red Blood Count 2.35 M/uL (4.70-6.10); White Blood Count 3.12 K/ul (4.8-10.8)
[2024-12-06 06:49] LABS: INR 1.1 (0.9-1.1); Prothrombin Time 12.2 Seconds (9.0-12.0)
[2024-12-06 06:53] LABS: Albumin Level 2.7 gm/dl (3.4-5.0); BUN Creatinine Ratio 25.7 (10-20); Bilirubin,Total 2.8 mg/dl (0.2-1.0); Calcium 7.8 mg/dl (8.6-10.3); Creatinine Clr Calc Pharmacy 47.8 ml/min; Globulin 2.8 gm/dl (2.5-4.0); Magnesium 1.9 mg/dl (1.7-2.4); Phosphorus 4.7 mg/dl (2.5-4.9); Potassium 4.6 mmol/L (3.5-5.1); Total Protein 5.5 gm/dl (6.0-8.3)
[2024-12-06 07:57] VITALS: RESP 18; TEMP 98.1
--- NOTE | 2024-12-06 10:12 | Gastroenterology Progress Note ---
Date of Service December 06, 2024 Assessment & Plan (1) Acute confusion: Plan: He seems to be back to normal. Okay to discharge from my standpoint to follow up with his liver doctors Admission and Anticipated Discharge Date Admission Date: December 04, 2024 Subjective Feeling well, no confusion Physical Exam Physical Exam: Looks well, alert and oriented, talkative Results & Data Vital Signs (Past 12 Hours) Vital Signs Temp Pulse Pulse Resp BP Pulse Ox O2 Del Method 12/06/24 08:00 63 12/06/24 07:56 36.7 C 60 18 124/64 93 Room Air 12/06/24 04:56 36.8 C 61 12 120/61 100 Room Air 12/05/24 23:46 36.8 C 62 12 129/62 96 Room Air
[2024-12-06 11:44] VITALS: BP 134/61; PULSE 95; O2SAT 95
--- NOTE | 2024-12-06 14:00 | Discharge Summary ---
Date of Service December 06, 2024 Admission HPI Per Admitting Provider Mr. Hale is a 74 year old male with a past medical history of DM type II, CKD stage III, dyslipidemia, chronic gout of multiple sites, restrictive lung disease, pulmonary hypertension, gastric antral vascular ectasia, esophageal varices, history of portal vein thrombosis, cirrhosis of liver, hepatic encephalopathy, GERD, history of liver cell carcinoma, prostate cancer, radiation cystitis, acquired thrombocytopenia, chronic anemia transfusion dependent who was brought to ED by son /2 confusion. Patient s/p paracentesis on 12/01 with 7 l removed and blood transfusion on 12/03. Son reports patient more weak and confused, which is always a sign that "his ammonia is off" per the son. Patient unable to provide accurate history--stating the year is "1957" and he is at the hospital because he "vomited 5 minutes ago." Patient denies any concerns at bedside, though unreliable historian at this time. Son reports issues with chronic nausea improved with reglan, as well as newer issues with swallowing most of his pills in last year. In the ED, vitals were notable for BP of 170s, HR of 60s, and O2 sat of high 90s on ra Imaging revealed moderate ascites increased in volume from last scan labs with stable anemia, hypernatremia corrected to 149 iso hyperglycemia, lucretia 1.45 ED interventions: NS. 1L Patient to be admitted to pcu for further evaluation and management of acute encephalopathy iso decomp cirrhosis Admission Exam Per Admitting Provider GENERAL APPEARANCE: AxOx1 chronically ill HEENT: NC, AT. MMM. EOMI, clear conjunctiva, NECK: Supple without lymphadenopathy. No stiffness or restricted ROM. HEART: Normal rate and regular rhythm, normal S1/S1, no m/r/g LUNGS: CTAB, moving air well. No crackles or wheezes are heard. ABDOMEN: protuberant, fluid shift EXTREMITIES: Without cyanosis, clubbing or edema. NEUROLOGICAL: Grossly nonfocal. moving all 4 extremities. CN not formally tested but appear grossly intact. Skin: petechiae BLE (chronic per son-. Principal Diagnosis Hepatic encephalopathy Discharge Exam GENERAL : chronically ill appearing elderly M in NAD HEENT: NC, AT. MMM. EOMI, clear conjunctiva NECK: Supple HEART: regular no m/r/g LUNGS: CTAB, moving air well. No crackles or wheezes are heard. ABDOMEN: protuberant but soft and nontender EXTREMITIES: moves extremities NEUROLOGICAL: awake, alert, oriented, answers appropriately, speech fluent, moving all 4 extremities Skin: + psoriasis patches Discharge Data Allergies Allergy/AdvReac Type Severity Reaction Status Date / Time No Known Allergies Allergy Mild Verified 12/03/24 09:15 Consultations 12/04/24 13:08 ED Decision to Admit Stat 12/04/24 17:33 Consult Gastroenterology Routine Ordered Studies 12/04/24 11:33 CT Abd and Pelvis [CT abd pelvis IV con only] Stat FINDINGS: Lower chest: Bibasilar atelectasis versus scarring is seen. Liver: Nodular contour of the liver is seen compatible with cirrhosis. Partially visualized hepatic masses are similar to prior exam within the limits of this technique. A TIPS stent is noted. Gallbladder and biliary tree: Cholelithiasis is seen without evidence of cholecystitis. No intra- or extrahepatic biliary ductal dilation. Pancreas: Cystic lesion in the pancreatic head measures 2 cm. Spleen: Splenomegaly is seen on the spleen measures approximately 13 cm in craniocaudal dimension. Adrenals: Unremarkable. Kidneys and ureters: Subcentimeter hypodensities are too small to characterize. There is a 15 mm hypodensity in the anterior aspect of the left kidney. Bladder: Diffuse homogeneous wall thickening is seen. Reproductive organs: Prostatomegaly is seen. Bowel: Diverticulosis is seen without diverticulitis. The appendix is normal. A small hiatal hernia is seen. Lymph nodes Retroperitoneal: Subcentimeter lymph nodes are noted. Pelvic: Unremarkable. Mesenteric: Unremarkable. Peritoneum: Moderate ascites is seen. Vessels: Atherosclerotic calcifications are seen. The portal vein is prominent and patent. Sequelae of portal hypertension is seen with some splenic and gastric varices. Abdominal wall: Umbilical hernia containing ascites fluid is seen. Bones: Degenerative changes in the visualized spine. Compression deformities of T11-L2 are seen. IMPRESSION: 1. Cirrhosis is seen with moderate ascites which has increased from admission of 07/05/2024. 2. TIPS stent. 3. Pancreatic head cystic lesion. 4. Cholelithiasis without cholecystitis. 5. Chronic compression deformities in the thoracolumbar spine. 6. Diverticulosis without diverticulitis ADDENDUM Left renal hypodensity in the anterior aspect of the left kidney may represent proteinaceous/hemorrhagic cyst, no underlying solid mass was seen on prior renal ultrasound. CT head/brain wo con Stat Findings: Exam is limited by patient motion. Areas of decreased attenuation are present in the periventricular and subcortical white matter bilaterally consistent with small vessel ischemic disease. Generalized cerebral atrophy with commensurate enlargement of the ventricles, sulci, and cisterns is also present. There is no acute intracranial hemorrhage or evidence of acute territorial infarction. No shift of the midline structures, mass effect, or extra-axial abnormalities are shown. Atherosclerotic calcifications are present in the intracranial segments of the internal carotid arteries. Imaged portions of the paranasal sinuses and mastoid air cells are clear. The orbits appear normal. There are no acute fractures of the calvaria or scalp swelling. Impression: No acute intracranial hemorrhage, no evidence of acute territorial infarction or other acute intracranial disease process. 12/04/24 13:34 US duplex portal hepatic veins Routine FINDINGS: The hepatic veins and right and middle portal veins are patent with no thrombus identified. Flow is in the correct direction. The TIPS is patent. The left portal vein is not seen within the field of view. IMPRESSION: Patent TIPS stent. Normal vasculature with flow in the appropriate direction, however the left portal vein is not visualized. 12/04/24 14:00 IR paracentesis abd w/img US Stat PROCEDURE: Procedure and risks were explained. Informed consent was obtained. A final timeout was completed. The abdomen was prepped and draped in sterile fashion. 1% lidocaine was utilized for skin anesthesia. Utilizing ultrasound guidance, a 5 Greek safety centesis catheter was advanced into the right lower quadrant pocket of ascites. Ultrasound images were obtained. A total of 3.2 L of ascites fluid was removed with 1 L sent to the lab for analysis. The catheter was removed and Band-Aid applied. The patient tolerated the procedure well. Vital signs will be monitored postprocedure. IMPRESSION: Ultrasound-guided paracentesis as above. Hospital Course (1) Hepatic encephalopathy: Plan Mr. Hale is a 74 year old male with a past medical history of DM type II, CKD stage III, dyslipidemia, chronic gout of multiple sites, restrictive lung disease, pulmonary hypertension, gastric antral vascular ectasia, esophageal varices, history of portal vein thrombosis, cirrhosis of liver, hepatic encephalopathy, GERD, history of liver cell carcinoma, prostate cancer, radiation cystitis, acquired thrombocytopenia, chronic anemia transfusion dependent who is admitted for acute metabolic encephalopathy #Acute metabolic encephalopathy #Hypernatremia Ammonia level 58 on admission (no nearly as elevated as prior presentations) Suspect Hypernatremia/dehydration contributing ?missed some lactulose at home received IVF Lactulose continue home rifaximin Delirium precautions UA and biofire negative hold diuretics, resume on DC Pt's mental status back to baseline, doing well. Has no complaints. Seen by GI - ok to Dc home and follow up w/ hematology. #Decompensated Cirrhosis, ascites and AMS #Hepatocellular Carcinoma #H/O Esophageal Varices & Gastric Antral Vascular Ectasia Pt underwent transarterial bland embol[facility] at [facility] on [facility]. [facility] Ramires[facility] Baseline Hgb ~8 per chart review; Hgb 8.2 on admission. - MELD-Na: 18 - lactulose (titrated to 3-4BM / day), Rifaximin 550 BID - Ascites: Hold home Lasix:Jarrod 40:100 iso LUCRETIA and hypernatremia -Consulted IR for paracentesis (last para 12/01, however, protuberant and uncomfortable on exam) - pt s/p paracentesis - 3L removed, no SBP - given Rocephin emp. on admission - EV: No evidence of GIB presently, close monitoring - on protonix for PPx at home, will continue - EV: s/p Protonix 80 x1 - Daily CMP + INR to calculate MELD; low Na diet - GI consulted, as above - US TIPS obtained #Transfusion dependent anemia #Chronic pancyotpenia SCDs Trend CBC last transfusion 12/03/2024 no reported bleed at this time #Episodic Hematuria #Prostate Cancer & Radiation Cystitis Completed radiation therapy to the prostate on 04/05/21; Pt follows w/ [facility] [Dr. Ramires]. [facility]]. History of radiation cystitis s/p cystourethroscopy with clot evacuation and fulguration. Can continue [employer] finasteride, oxybutynin and solifenacin. Incidental finding on CT scan Left renal hypodensity in the anterior aspect of the left kidney may represent proteinaceous/hemorrhagic cyst, no underlying solid mass was seen on prior renal ultrasound. - follow up/ work-up as outpt #Diabetes Mellitus Type II [Insulin-Dependent] hold home insulin glargine 25 U (reports intermittent use) SSI and BSG q6 Continue to monitor #LUCRETIA on CKD Stage III Creatinine 1.45 Held home lasix and aldactone while inpt # Gout continue [employer] allopurinol. #Anxiety & Depression: Can continue [employer] duloxetine Total Time Total Time Spent Total Time Spent (In Minutes): 40 Discharge Plan Discharge Items Patient Disposition: Home - Self-Care Reason For Visit: AMS Discharge Diagnosis: Hepatic encephalopathy Activity: Per Instructions section Non-emergency contact: Primary Care Provider and [employer] Call non-emergency contact if: you have any medication questions and your symptoms worsen Follow-up/Referrals: Kristen Vences, [Primary Care Provider] - Diet: Carb Consistent or DM2 and Low Sodium (2gm) Addtl Attending Provider Instructions: Follow up with primary care doctor and [employer]. Make sure to titrate lactulose so that you have 3-4 bowel movements a day. Pending Studies at Discharge: Yes Studies:: peritoneal cultx final results Stand-Alone Forms: [facility] [facility], Smoking Cessation Medications and DC Order Prescriptions: New guaifenesin [Mucinex] 600 mg Tablet Extended Release 12hr 600 mg PO Q12 Qty: 10 0RF Continued allopurinol 100 mg Tablet 200 mg PO QAM ferrous sulfate [iron] 325 mg (65 mg iron) Tablet 650 mg PO QAM Men's 50 Plus Multivitamin 400-20-370 mcg Tablet 1 tab PO DAILY finasteride 5 mg tablet 5 mg PO QAM magnesium chloride [Mag 64] 64 mg tablet,delayed release (DR/EC) 64 mg PO QAM pantoprazole 40 mg tablet,delayed release (DR/EC) 40 mg PO AMPM duloxetine 30 mg capsule,delayed release(DR/EC) 30 mg PO QAM Xifaxan 550 mg tablet 550 mg PO AMHS oxybutynin chloride 5 mg tablet 5 mg PO TID PRN (Reason: Bladder Spasms) solifenacin 5 mg tablet 5 mg PO DAILY triamcinolone acetonide 0.1 % cream 1 applic TOPICAL DAILY zinc gluconate 50 mg Tablet 50 mg PO DAILY Qty: 0 insulin glargine [Lantus Solostar U-100 Insulin] 100 unit/mL (3 mL) insulin pen 25 unit SUBCUT QPM Rx Instructions: intermittent use spironolactone 100 mg Tablet 100 mg PO QAM Qty: 30 0RF Hold Instructions: Resume on 06/17/24. Hold for day of and day after paracentesis furosemide 40 mg Tablet 40 mg PO QAM Qty: 30 0RF Hold Instructions: Resume on 06/17/24. Hold day of and day after paracentesis lactulose [Kristalose] 10 gram packet 10 g PO BID Rx Instructions: TITRATE TO 3 OR MORE BOWEL MOVEMENTS PER DAY Discharge Orders: Discharge Order (Routine); Ordered 12/06/24 Ordered By: Lei Tapia Admission Data Admit Date/Time: 12/04/24 13:51 Attending Provider: Lei Tapia Admit Provider: Ale Velazquez Primary Care Provider: Kristen Vences Other Providers: Ale Velazquez; Vu Jason
== END 2024-12-06 15:26 | disposition home or self-care (01) | DRG 442 ==
LOC: ED 11:20 → 2E 13:51 → SUATTDRO 13:51 → 2E 16:32

== ENCOUNTER 2025-05-12 10:12 | Inpatient (IN) ==
[2025-05-12] MEDS ORDERED: SODIUM CHLORIDE 0.9% 100 ML IV PRN ×2 (11:07→11:08)
[2025-05-12 12:04] LABS: Albumin Globulin Ratio 0.6 (0.9-2); Albumin Level 2.5 gm/dl (3.4-5.0); BUN Creatinine Ratio 30.7 (10-20); Bilirubin,Total 2.1 mg/dl (0.2-1.0); Creatinine Clr Calc Pharmacy 28.3 ml/min; Globulin 4.4 gm/dl (2.5-4.0); Potassium 5.7 mmol/L (3.5-5.1); Total Protein 6.9 gm/dl (6.0-8.3)
[2025-05-12 12:08] LABS: INR 1.1 (0.9-1.1); Prothrombin Time 12.3 Seconds (9.0-12.0)
[2025-05-12 12:14] LABS: Hematocrit (blood only) 20.9 % (42.0-52.0); Hemoglobin 6.8 g/dl (14.0-18.0); Mean Corpuscular Hemoglobin 33.2 pg (25.0-34.0); Mean Corpuscular Hgb Conc 32.5 g/dL (32.0-36.0); Mean Platelet Volume 12.4 fL (9.4-12.4); Platelet Count 80 K/uL (130-400); RDW Coefficient of Variation 20.8 % (11.5-14.5); RDW Standard Deviation 77.7 fL (36.4-46.3); Red Blood Count 2.05 M/uL (4.70-6.10); White Blood Count 3.13 K/ul (4.8-10.8)
[2025-05-12 12:28] LABS: Anisocytosis Present; Basophils # (auto) 0.01 K/uL (0.00-0.20); Basophils % (auto) 0.3 %; Eosinophils # (auto) 0.18 K/uL (0.00-0.50); Eosinophils % (auto) 5.8 %; Immature Granulocytes # (auto) 0.03 K/uL (0.01-0.20); Lymphocytes # (auto) 0.33 K/uL (1.20-3.40); Lymphocytes % (auto) 10.5 %; Monocytes # (auto) 0.14 K/uL (0.11-0.59); Monocytes % (auto) 4.5 %; Neutrophils # (auto) 2.44 K/uL (1.40-6.50); Neutrophils % (auto) 77.9 %; Ovalocytes 1+; Polychromasia 1+; Tear Drop Cells 1+
[2025-05-12 12:34] LABS: Appearance Urine Turbid (Clear); Bilirubin Urine Negative (Negative); Blood Urine 3+ (Negative); Color Urine Red; Glucose Urine UA Negative (Negative); Ketones Urine Negative (Negative); Leukocyte Esterase Urine Negative (Negative); Nitrite Urine Negative (Negative); Protein Urine 3+ (Negative); Urobilinogen Urine Negative (Negative)
--- NOTE | 2025-05-12 12:45 | CT Scan Report ---
ABDOMEN AND PELVIS CT WITHOUT CONTRAST CT DOSE: 704.54 mGy.cm HISTORY: mendoza placement confirmation TECHNIQUE: Multiaxial CT images of the abdomen and pelvis were performed without contrast. A dose lo wering technique was utilized adhering to the principles of ALARA. COMPARISON STUDY: 04/01/2025 FINDINGS: There is a small right pleural effusion, increased in size, with adjacent compressive atele ctasis at the right lower lung lobe. There is mild atelectasis at the left lung base. There are diffu se coronary artery calcifications. ABDOMEN: Stable gallstones without evidence of acute cholecystitis. Stable cirrhotic morphology of th e liver, splenomegaly, and prominence of the portal vein consistent with cirrhosis and portal hyperte nsion. There is a small amount of diffuse ascites. Stable TIPS shunt. Stable peripherally calcified h ypodense finding at or adjacent to the pancreatic head measuring 2 cm. Adrenal glands are unremarkabl e. Kidneys show no hydronephrosis or calculi. There are atherosclerotic calcifications. No abdominal aortic aneurysm. Pelvis: Prostate is enlarged. Urinary bladder is nondistended. There is a small amount of gas within the urinary bladder. No Mendoza catheter seen. There is a small amount of patchy density dependently in the urinary bladder, debris versus clot. There is extensive sigmoid diverticulosis. No acute diverti culitis. No bowel inflammation or obstruction. No free air or abscess. Osseous structures: Stable mild height loss at multiple lower thoracic and upper lumbar vertebral bod ies. Stable spinal degenerative changes. There are moderate degenerative changes at the hips. IMPRESSION: 1. No Mendoza catheter seen. 2. Small amount of gas in the nondistended urinary bladder. Small amount of patchy density dependentl y in the urinary bladder, debris versus clot. 3. Stable findings of cirrhosis, portal hypertension, and small amount of ascites. 4. Increased size of small right pleural effusion. 5. Otherwise as described. ACT 112: Negative or not required by law. The above report was generated using voice recognition software. It may contain grammatical, syntax o r spelling errors. Electronically signed by: Alex Moreau M.D. 05/12/2025 12:42 PM
[2025-05-12 12:50] LABS: RBC Urine >20 /hpf (0-2)
[2025-05-12 12:51] LABS: Bacteria Urine 1+ (None Seen)
[2025-05-12] MEDS: HYDROmorphone INJ 0.5 MG/0.5 ML SYR IV STA (14:05)
--- NOTE | 2025-05-12 14:23 | Emergency Department Note ---
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 Mendoza catheter was placed on 05/03/2025 for urinary retention. He had a hemoglobin at [facility] this morning that was 6.7 down from 7.0. No reports of GI bleeding. He is scheduled for paracentesis today due to abdominal distention. Denies any lightheadedness, dizziness, chest pain, shortness of breath. He has had blood transfusions in the past. Denies any prior history of hematuria. Not currently on any blood thinners. Home Medications Medication Instructions Recorded Confirmed Type allopurinol 100 mg tablet 200 mg PO QAM 05/16/20 03/03/25 History ferrous sulfate 325 mg (65 mg 650 mg PO QAM 05/17/23 03/03/25 History iron) tablet (iron) [id number] acid-vit 1 tab PO DAILY 05/17/23 03/03/25 History K-lycop 400 mcg-20 mcg-370 mcg tablet (Men's 50 Plus Multivitamin) duloxetine 30 mg capsule,delayed 30 mg PO QAM 02/02/24 03/03/25 History release pantoprazole 40 mg tablet,delayed 40 mg PO AMPM 02/02/24 03/03/25 History release rifaximin 550 mg tablet (Xifaxan) 550 mg PO AMHS 02/02/24 03/03/25 History finasteride 5 mg tablet 5 mg PO QAM 03/20/24 03/03/25 History insulin glargine 100 unit/mL (3 25 unit subcut QPM 05/20/24 03/03/25 History mL) subcutaneous pen (Lantus Solostar U-100 Insulin) oxybutynin chloride 5 mg tablet 5 mg PO TID PRN Bladder Spasms 05/20/24 03/03/25 History solifenacin 5 mg tablet 5 mg PO DAILY 05/20/24 03/03/25 History triamcinolone acetonide 0.1 % 1 applic topical DAILY 05/20/24 03/03/25 History topical cream zinc gluconate 50 mg tablet 50 mg PO DAILY ##0 05/20/24 03/03/25 History furosemide 40 mg tablet 40 mg PO QAM #30 tabs 05/30/24 03/03/25 Rx spironolactone 100 mg tablet 100 mg PO QAM #30 tabs 05/30/24 03/03/25 Rx magnesium chloride 64 mg 64 mg PO QAM 08/04/24 03/03/25 History (magnesium chloride) tablet,delayed release (Mag 64) lactulose 10 gram oral packet 10 g PO BID 12/04/24 03/03/25 History (Kristalose) guaifenesin 600 mg tablet, 600 mg PO Q12 #10 tabs 12/06/24 03/03/25 Rx extended release 12 hr (Mucinex) Allergies Allergy/AdvReac Type Severity Reaction Status Date / Time No Known Allergies Allergy Mild Verified 03/03/25 11:08 Past Med/Surg History Problem List (Updated 05/12/25 @ 14:31 by Freddy Hobson MD) Acute confusion (Acute) Dysphagia Hyperammonemia (Acute) Hematuria (Acute) Blood in stool Contusion of right hip (Acute) CHI (closed head injury) (Acute) Altered mental status (Acute) Radiation cystitis Fall (Acute) Diverticulitis (Acute) AMS (altered mental status) (Acute) Pancytopenia (Acute) Hyperammonemia (Acute) Hepatic encephalopathy Sigmoid diverticulitis Encephalopathy Elevated lactic acid level Epigastric abdominal pain Hypomagnesemia (Acute) Elevated liver enzymes (Acute) Acute hyperglycemia (Acute) Anemia (Acute) Precordial chest pain (Acute) Increased anion gap metabolic acidosis Abdominal pain, generalized Advanced care planning/counseling discussion Palliative care by specialist Acute on chronic blood loss anemia Elevated brain natriuretic peptide (BNP) level (Acute) Pancytopenia (Acute) Abdominal ascites (Acute) Abdominal pain (Acute) Hypocalcemia (Acute) Hyperglycemia (Acute) Elevated brain natriuretic peptide (BNP) level (Acute) Acute kidney injury superimposed on chronic kidney disease (Acute) Thrombocytopenia (Acute) Anemia requiring transfusions (Acute) Pancytopenia (Acute) Chest pain (Acute) LUCRETIA (acute kidney injury) Hematuria (Acute) Anemia (Acute) Acute urinary retention (Acute) DM type 2 (diabetes mellitus, type 2) Irradiation cystitis with hematuria UTI (urinary tract infection) (Acute) Anemia (Acute) 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 (Acute) Closed T12 spinal fracture (Acute) Prostate cancer (Acute) Hx radiation Insulin dependent type 2 diabetes mellitus Medical History CKD (chronic kidney disease) stage 3, GFR 30-59 ml/min Thrombocytopenia DM type 2 (diabetes mellitus, type 2) Hx of malignant neoplasm of prostate History of blood transfusion 11/2022 Hepatocellular carcinoma Spinal fracture of T12 vertebra History of recent hospitalization 06/2023 [facility] hepatic encephalopathy Liver spots Under surveillance, stable per patient Anxiety and depression 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 Anemia of chronic disease under surveillance History of panic attacks Gout No current issues GERD (gastroesophageal reflux disease) GAVE (gastric antral vascular ectasia) Hypertension Hx Esophageal varices EGD 05/22/23 ([facility]): Grade 1 varices in distal esophagus without high risk stigmata Upper GI bleed Hx Psoriasis Surgical History History of left cataract surgery History of right cataract surgery History of prostate biopsy malignant S/P TIPS (transjugular intrahepatic portosystemic shunt) History of esophagogastroduodenoscopy (EGD) Most recent 05/2023 [facility] History of colonoscopy with polypectomy History of tonsillectomy and adenoidectomy History of abdominal paracentesis Multiple, most recent 01/2023 Family History Father , "3/4 liver gone due to drinking" Colorectal cancer, Onset Age: 63 Mother Lung cancer Daughter Cancer cervical and thyroid cancers Ovarian cancer Other No family history of adverse response to anesthesia 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 Smoking Status: Never smoker Second Hand Exposure: No; Hx Alcohol Use: No Hx Substance Use: No Preferred Language: Malian Communication Ability: Effective Communication Ability Comment: AMS, unable to communicate Visual Impairment: No Limitations Hearing Ability: Normal 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 Metal 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 Required: No Beliefs That Will Affect Care: None marital status: Current Living Situation: Alone Current Living Situation Comment: 1 level single family home 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 Physical Exam Vital Signs Vital Signs - 24 hr 05/12/25 10:25 05/12/25 10:26 05/12/25 14:10 Temperature 36.1 C L Temperature Source Axillary Pulse Rate 65 65 Respiratory Rate 20 18 Respiratory Effort / Characteristics Non-Labored Spontaneous Non-Labored Spontaneous Respiratory Depth Normal Normal Respiratory Pattern Regular Regular Blood Pressure 104/52 L Blood Pressure [Right Arm] 117/46 L Blood Pressure Mean 69 Blood Pressure Mean [Right Arm] 69 Blood Pressure Position Lying Pulse Oximetry 99 99 Oxygen Delivery Method Nasal Cannula Nasal Cannula Oxygen Flow Rate 2 2 Sepsis Recent Fever Within 48 Hours No Sepsis New/Unexplained Change in Mental Status N/A Sepsis Action Taken by Nursing No Action Required 05/12/25 14:26 Temperature Temperature Source Pulse Rate 63 Respiratory Rate Respiratory Effort / Characteristics Respiratory Depth Respiratory Pattern Blood Pressure Blood Pressure [Right Arm] Blood Pressure Mean Blood Pressure Mean [Right Arm] Blood Pressure Position Pulse Oximetry Oxygen Delivery Method Oxygen Flow Rate Sepsis Recent Fever Within 48 Hours Sepsis New/Unexplained Change in Mental Status Sepsis Action Taken by Nursing See below Constitutional WD/WN, vitals as above Eyes PERRL, conjunctivae normal, anicteric sclerae ENMT external ear and nose normal, oropharynx normal Respiratory normal respiratory effort, lungs clear to auscultation Cardiovascular RRR, no murmur, no edema Gastrointestinal (Abdomen) normal bowel sounds, soft, nontender, no hepatosplenomegaly Skin no rashes, warm and dry Genitourinary no testicular masses, no penis abnormality Mendoza catheter noted with gross hematuria noted in mendoza bag Course Administered Medications Discontinued Medications Hydromorphone HCl (Hydromorphone Inj 0.5 Mg/0.5 Ml Syr) 0.5 mg IV NOW STA Stop: 05/12/25 13:59 Last Admin: 05/12/25 14:05 Dose: 0.5 mg Documented By: CAP Critical Care Time Critical Care Time: Yes Total Critical Care Time: 35 Medical Decision Making Differential Diagnosis . Mendoza insertion, cystitis, bladder AVM, neoplasm ,obstructive uropathy, positive culture result patient, prostatitis, urology Medical Records Attestation: I reviewed the patient's medical records. Home Medications Current Medication List: was personally reviewed by me Laboratory Data Attestation: I reviewed the patient's lab results. 05/12/25 09:25 05/12/25 09:25 Lab Results 05/12/25 05/12/25 05/12/25 Range/Units 09:20 09: 10:26 WBC 3.13 L (4.8-10.8) K/ul RBC 2.05 L (4.70-6.10) M/uL Hgb 6.8 L* (14.0-18.0) g/dl Hct 20.9 L* (42.0-52.0) % MCV 102.0 H (80.0-100.0) fL MCH 33.2 (25.0-34.0) pg MCHC 32.5 (32.0-36.0) g/dL RDW Std Deviation 77.7 H (36.4-46.3) fL RDW Coeff of Vioeltta 20.8 H (11.5-14.5) % Plt Count 80 L (130-400) K/uL MPV 12.4 (9.4-12.4) fL Immature Gran % (Auto) 1.0 % Neut % (Auto) 77.9 % Lymph % (Auto) 10.5 % [place] % (Auto) 4.5 % Eos % (Auto) 5.8 % Baso % (Auto) 0.3 % Neut # (Auto) 2.44 (1.40-6.50) K/uL Lymph # (Auto) 0.33 L (1.20-3.40) K/uL [place] # (Auto) 0.14 (0.11-0.59) K/uL Eos # (Auto) 0.18 (0.00-0.50) K/uL Baso # (Auto) 0.01 (0.00-0.20) K/uL Immature Gran # (Auto) 0.03 (0.01-0.20) K/uL Polychromasia 1+ Anisocytosis Present Tear Drop Cells 1+ Ovalocytes 1+ PT 12.3 H (9.0-12.0) Seconds INR 1.1 (0.9-1.1) Sodium 136 (136-145) mmol/L Potassium 5.7 H (3.5-5.1) mmol/L Chloride 112 H (98-107) mmol/L Carbon Dioxide 19 L (21-32) mmol/L Anion Gap 5 (3-11) BUN 69 H (6-23) mg/dl Creatinine 2.25 H (0.6-1.4) mg/dl Est Cr Clr Drug Dosing 28.3 ml/min eGFR 29.85 BUN/Creatinine Ratio 30.7 H (10-20) Glucose 224 H (70-99(Fasting)) mg/dl Calcium 9.0 (8.6-10.3) mg/dl Total Bilirubin 2.1 H (0.2-1.0) mg/dl AST 60 H (13-39) U/L ALT 35 (7-52) U/L Alkaline Phosphatase 396 H (34-104) U/L Total Protein 6.9 (6.0-8.3) gm/dl Albumin 2.5 L (3.4-5.0) gm/dl Globulin 4.4 H (2.5-4.0) gm/dl Albumin/Globulin Ratio 0.6 L (0.9-2) Lipase 26 (11-82) U/L Urine Color Red Urine Appearance Turbid A (Clear) Urine pH 6.0 (4.5-7.5) Ur Specific [place] 1.020 (1.000-1.030) Urine Protein 3+ H (Negative) Urine Glucose (UA) Negative (Negative) Urine Ketones Negative (Negative) Urine Blood 3+ H (Negative) Urine Nitrite Negative (Negative) Urine Bilirubin Negative (Negative) Urine Urobilinogen Negative (Negative) Ur Leukocyte Esterase Negative (Negative) Urine RBC >20 H (0-2) /hpf Urine WBC 11-20 H (0-5) /hpf Ur Epithelial Cells 3-5 H (0-2) /hpf Urine Bacteria 1+ H (None Seen) Urine Comment Blood Type O Positive Antibody Screen POSITIVE A Antibody ID Comment TNP Direct Antiglob Test Positive A (Negative) ADDY (IgG-AHG) 2+ A (Negative) ADDY, Polyspecific 2+ A (Negative) ADDY C3b, C3d 5 Min Neg (Negative) Crossmatch See Detail Imaging Data Radiologist's Impression: Abdomen/Pelvis CT 05/12/25 12:[address] WITHOUT CONTRAST CT DOSE: 704.54 mGy.cm HISTORY: mendoza placement confirmation TECHNIQUE: Multiaxial CT images of the abdomen and pelvis were performed without contrast. A dose lowering technique was utilized adhering to the principles of ALARA. COMPARISON STUDY: 04/01/2025 FINDINGS: There is a small right pleural effusion, increased in size, with adjacent compressive atelectasis at the right lower lung lobe. There is mild atelectasis at the left lung base. There are diffuse coronary artery calcifications. ABDOMEN: Stable gallstones without evidence of acute cholecystitis. Stable cirrhotic morphology of the liver, splenomegaly, and prominence of the portal vein consistent with cirrhosis and portal hypertension. There is a small amount of diffuse ascites. Stable TIPS shunt. Stable peripherally calcified hypodense finding at or adjacent to the pancreatic head measuring 2 cm. Adrenal glands are unremarkable. Kidneys show no hydronephrosis or calculi. There are atherosclerotic calcifications. No abdominal aortic aneurysm. Pelvis: Prostate is enlarged. Urinary bladder is nondistended. There is a small amount of gas within the urinary bladder. No Mendoza catheter seen. There is a small amount of patchy density dependently in the urinary bladder, debris versus clot. There is extensive sigmoid diverticulosis. No acute diverticulitis. No bowel inflammation or obstruction. No free air or abscess. Osseous structures: Stable mild height loss at multiple lower thoracic and upper lumbar vertebral bodies. Stable spinal degenerative changes. There are moderate degenerative changes at the hips. IMPRESSION: 1. No Mendoza catheter seen. 2. Small amount of gas in the nondistended urinary bladder. Small amount of patchy density dependently in the urinary bladder, debris versus clot. 3. Stable findings of cirrhosis, portal hypertension, and small amount of ascites. 4. Increased size of small right pleural effusion. 5. Otherwise as described. ACT 112: Negative or not required by law. The above report was generated using voice recognition software. It may contain grammatical, syntax or spelling errors. Electronically signed by: Alex Moreau M.D. 05/12/2025 12:42 PM Blood Pressure Blood Pressure Findings: Normal blood pressure MDM Narrative Patient is a 74-year-old male with history as seen above who presents for gross hematuria and acute blood loss anemia. Hemodynamically stable. Large amount of blood-tinged urinary output noted in Mendoza catheter bag here today. Repeat hemoglobin here in the ED is 6.8. Patient was typed and crossed for 2 units in the ED. Delay in blood transfusion secondary to the positive antibody screen. Mendoza catheter was removed at bedside due to pain and difficulty with bedside flushing. I did speak with urology who recommends placement of a three-way Mendoza catheter. Will see the patient at bedside. CT scan shows a small amount of density dependently debris within the bladder likely ongoing clots. No other acute abnormalities noted on CT scan. Will hold on patient's paracentesis due to unstable hemoglobin level ED. IV antibiotics will be given to cover for prophylactic catheter associated infection. Patient to be admitted to hospitalist service for management of acute blood loss anemia with consultation with urology recommended. Impression & Plan Anemia, Hematuria Discharge Plan Visit Data Chief Complaint: Hematuria Stated Complaint: HEMATURIA, AB PAIN ED Provider: Freddy Hobson Discharge Problem: Anemia, Hematuria Patient Disposition: Admitted As Inpatient Condition: Fair Forms Stand Alone Forms: My [facility] [employer] Prescriptions Prescriptions: No Action allopurinol 100 mg Tablet 200 mg PO QAM ferrous sulfate [iron] 325 mg (65 mg iron) Tablet 650 mg PO QAM Men's 50 Plus Multivitamin 400-20-370 mcg Tablet 1 tab PO DAILY finasteride 5 mg tablet 5 mg PO QAM magnesium chloride [Mag 64] 64 mg tablet,delayed release (DR/EC) 64 mg PO QAM pantoprazole 40 mg tablet,delayed release (DR/EC) 40 mg PO AMPM duloxetine 30 mg capsule,delayed release(DR/EC) 30 mg PO QAM Xifaxan 550 mg tablet 550 mg PO AMHS oxybutynin chloride 5 mg tablet 5 mg PO TID PRN (Reason: Bladder Spasms) solifenacin 5 mg tablet 5 mg PO DAILY triamcinolone acetonide 0.1 % cream 1 applic TOPICAL DAILY zinc gluconate 50 mg Tablet 50 mg PO DAILY Qty: 0 insulin glargine [Lantus Solostar U-100 Insulin] 100 unit/mL (3 mL) insulin pen 25 unit SUBCUT QPM Rx Instructions: intermittent use spironolactone 100 mg Tablet 100 mg PO QAM Qty: 30 0RF Hold Instructions: Resume on 06/17/24. Hold for day of and day after paracentesis furosemide 40 mg Tablet 40 mg PO QAM Qty: 30 0RF Hold Instructions: Resume on 06/17/24. Hold day of and day after paracentesis lactulose [Kristalose] 10 gram packet 10 g PO BID Rx Instructions: TITRATE TO 3 OR MORE BOWEL MOVEMENTS PER DAY guaifenesin [Mucinex] 600 mg Tablet Extended Release 12hr 600 mg PO Q12 Qty: 10 0RF Referrals Referrals: Kristen Vences DO [Primary Care Provider] -
--- NOTE | 2025-05-12 14:42 | History & Physical Report ---
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: Plan Patient is a medically complex 74-year-old male with past medical history significant for decompensated FOFANA cirrhosis s/p TIPS with esophageal varices, recurrent ascites with SBP, HCC [on supportive treatment only/not candidate for cancer directed therapy due to age and comorbidities per outpatient oncology documentation], thrombocytopenia, chronic anemia, gastric antral vascular ectas ia, hepatic encephalopathy, non-occlusive portal vein thrombosis, prostate cancer s/p radiotherapy on chronic Lupron suppression c/b radiation cystitis with recurrent hematuria, CKD stage IIIa, insulin-requiring DMII and other problems listed below who presented to the ED via EMS from [facility] with gross hematuria. Recent >1mo admission at [facility] --> refer to [facility] for further details. #Acute blood loss anemia likely 2/2 recurrent hematuria ISO chronic radiation cystitis Initial Hgb 6.8 Type/cross done 1U PRBCs ordered -Waiting for PRBCs to arrive from [facility] 2/2 (+) antibody screen Follow H/H trend Appreciate uro consult CTAP: small amount of gas in the nondistended urinary bladder, small amount of patchy density dependently in the urinary bladder (debris vs clot) Discussed case w/ uro Socrates ARCEO at bedside in ED -Mendoza cath removed in ED -Will trial pt w/o urinary cath for now -If not able to pass urine/clots, will need to reinsert cath -Bladder scan difficult in past 2/2 obscured view ISO ascites Bladder scan PRN #LUCRETIA superimposed on CKD stage IIIa Cr 2.25, baseline 1.8-2.0 Judicious IVF use ISO cirrhosis, r/o volume overload Check repeat BMP Appreciate nephro consult #Hyperkalemia Check repeat BMP Check EKG Appreciate nephro consult #Abnormal UA UA w/ 11-20 WBC, 1+ bacteria S/p IV Rocephin in ED Continue IV Rocephin pending urine cx results #Decompensated FOFANA cirrhosis s/p TIPs w/ esophageal varices #Recurrent ascites, history of SBP #Waxing/waning mentation level in ED --> ? possible baseline Recently completed ABX course last month during admission at [facility] for SBP -Last paracentesis done on 05/05 at [facility] -Ascitic fluid cx grew Serratia marcescens susceptible to cefepime/Rocephin/cipro/gent/Bactrim -Was started on prophylactic cipro for SBP prevention as directed by hepatology CTAP: stable findings of cirrhosis, portal hypertension, and small amount of ascites. Hold prophylactic cipro while on IV Rocephin --> will cover if SBP present however have low suspicion Check ammonia level --> ? --> ? hepatic encephalopathy c/t mentation level Check head CT Continue home lactulose, Xifaxan Hold home diuretics for now 2/2 relative hypotension, resume when able Will need to arrange paracentesis once Hgb improves/stabilizes (was supposed to be done today) #Increased size of small R pleural effusion On 2L NC, resp status stable Continue to monitor for now #Recent GLF on 04/01/25 c/b SDH Repeat head CT at [facility] on 04/15 --> resolution of previously described subarachnoid and intraventricular hemorrhage S/p course of Keppra while at [facility], no surgical intervention required Continue levocarnitine #Insulin-dependent DMII Hgb A1c 9.2% 1mo ago Basal/bolus reg while inpt Appreciate glycemic pharm assistance, DM educator consult given uncontrolled A1c #UDAY Continue iron supplementation #Gout Continue allopurinol #GERD Continue PPI DVT Prophylaxis: SCDs/TEDs only ISO above. Code Status: DNR/DNI - Documentation/forms provided by [facility]. Disposition: Admit to PCU Patient seen in collaboration with Dr. Villanueva. Please see addendum. I spent a total of 76 minutes coordinating, documenting, and providing care for this patient excluding time spent in the performance of separately billed services or time spent by another provider/QHP. This included personally reviewing all current laboratories and imaging studies, medical reconciliation, outpatient chart review and discussion with specialists. This chart was completed in part utilizing Speech Voice Recognition Software. Grammatical errors, random word insertions, pronoun errors, and incomplete sentences are an occasional consequence of this system due to software limitations, ambient noise, and hardware issues. Any formal questions or concerns about the content, text, or information contained within the body of this dictation should be directly addressed to the provider for clarification. History of Present Illness Chief Complaint: Hematuria Primary Care Provider: Kristen Vences DO Patient is a medically complex 74-year-old male with past medical history significant for decompensated FOFANA cirrhosis s/p TIPS with esophageal varices, recurrent ascites with SBP, HCC [on supportive treatment only/not candidate for cancer directed therapy due to age and comorbidities per outpatient oncology documentation], thrombocytopenia, chronic anemia, gastric antral vascular ectasia, hepatic encephalopathy, non-occlusive portal vein thrombosis, prostate cancer s/p radiotherapy on chronic Lupron suppression c/b radiation cystitis with recurrent hematuria, CKD stage IIIa, insulin-requiring DMII and other problems listed below who presented to the ED via EMS from [facility] with gross hematuria. History mostly obtained from documentation provided by [facility], discussion with ED provider and associated chart review. Patient with waxing/waning mentation level during conversation therefore it was difficult to obtain much information from him. Most recent hospital confinement at [facility] from 04/01/25-05/07/25 after sustaining a GLF and was found to have a SDH/SAH. Seen and evaluated by NSGY. Completed 7-day inpatient course of Keppra. No surgical intervention required. Hospital course was complicated by encephalopathy with waxing/waning mental status as well as SBP. Patient underwent paracentesis on 04/09, 04/12, 04/16 and 04/22 with all fluid studies consistent with SBP. Ascitic fluid culture on 04/09 consistent with Serratia marcescens with susceptibility to cefepime, Rocephin, ciprofloxacin, gentamicin and Bactrim. Completed antibiotic course, consisting of IV meropenem and po ciprofloxacin, for SBP on 04/29. He was started on po ciprofloxacin once daily for SBP prophylaxis per hepatology recommendations. Patient also seen and evaluated by nephrology for LUCRETIA and hyperkalemia during that admission. He was also found to have acute on chronic anemia without overt bleeding initially requiring 3 units of PRBCs. He was started on iron supplementation as well based on iron studies. He required Mendoza catheter placement due to gross hematuria with passage of clots in the setting of radiation cystitis. He then required another 1 unit of PRBCs on 05/03 due to another drop in Hgb which was thought to be due to his gross hematuria and passage of clots. There was an attempt to remove his urinary catheter on 05/03 however he was noted to be retaining therefore it was subsequently replaced. Most recently had paracentesis done on 05/05. Patient was discharged to [facility] on 05/07. Repeat head CT done 04/15 with resolution of previously described subarachnoid and intraventricular hemorrhage. Patient coming today from [facility] with complaint of gross hematuria and clots. Reportedly was also complaining of pain at the distal tip of his penis however upon direct questioning he denies this. Patient is able to recall location, date and time. Has periods of lucidity during conversation and then moments of forgetfulness. Denies any chest pain, SOB, abdominal pain, suprapubic pain or N/V on direct questioning. He does recall that he was scheduled to have paracentesis done today however. No reports of hematochezia, melena or hematemesis per documentation provided by [facility]. Mendoza catheter was last exchanged on 05/03 during his admission at [facility] after he failed a voiding trial. Not currently on any blood thinners. Allergies Allergy/AdvReac Type Severity Reaction Status Date / Time No Known Allergies Allergy Mild Verified 03/03/25 11:08 Home Medications Medication Instructions Recorded Confirmed Type allopurinol 100 mg tablet 200 mg PO QAM 05/16/20 05/12/25 History evvpfzqsfgge-jnx-bgyfp acid-vit 1 tab PO QAM 05/17/23 05/12/25 History K-lycop 400 mcg-20 mcg-370 mcg tablet (Men's 50 Plus Multivitamin) duloxetine 30 mg capsule,delayed 30 mg PO QAM 02/02/24 05/12/25 History release pantoprazole 40 mg tablet,delayed 40 mg PO BID 02/02/24 05/12/25 History release rifaximin 550 mg tablet (Xifaxan) 550 mg PO BID 02/02/24 05/12/25 History finasteride 5 mg tablet 5 mg PO QAM 03/20/24 05/12/25 History insulin glargine 100 unit/mL (3 38 unit subcut QAM 05/20/24 05/12/25 History mL) subcutaneous pen (Lantus Solostar U-100 Insulin) oxybutynin chloride 5 mg tablet 5 mg PO TID PRN Bladder Spasms 05/20/24 05/12/25 History solifenacin 5 mg tablet 5 mg PO QAM 05/20/24 05/12/25 History zinc gluconate 50 mg tablet 50 mg PO QAM ##0 05/20/24 05/12/25 History furosemide 40 mg tablet 40 mg PO QAM #30 tabs 05/30/24 05/12/25 Rx spironolactone 100 mg tablet 100 mg PO QAM #30 tabs 05/30/24 05/12/25 Rx cholecalciferol (vitamin D3) 25 50 mcg PO QAM 05/12/25 05/12/25 History mcg (1,000 unit) tablet ciprofloxacin HCl 500 mg tablet 500 mg PO QAM 05/12/25 05/12/25 History ferrous sulfate 325 mg (65 mg 325 mg PO BID 05/12/25 05/12/25 History iron) tablet furosemide 20 mg tablet 20 mg PO HS 05/12/25 05/12/25 History insulin aspart U-100 100 unit/mL 1 sliding scale dose subcut 05/12/25 05/12/25 History subcutaneous solution USEASDIRECTD lactulose 10 gram/15 mL oral 20 g PO BID 05/12/25 05/12/25 History solution levocarnitine 1 gram/10 mL oral 1 g PO BID 05/12/25 05/12/25 History solution Past Med/Surg History Problem List (Updated 05/12/25 @ 16:53 by JEFF Boogie) Gross hematuria Abnormal urinalysis Acute kidney injury superimposed on stage 3a chronic kidney disease Hyperkalemia Chronic radiation cystitis Acute blood loss anemia Acute confusion (Acute) Dysphagia Hyperammonemia (Acute) Hematuria (Acute) Blood in stool Contusion of right hip (Acute) CHI (closed head injury) (Acute) Altered mental status (Acute) Radiation cystitis Fall (Acute) Diverticulitis (Acute) AMS (altered mental status) (Acute) Pancytopenia (Acute) Hyperammonemia (Acute) Hepatic encephalopathy Sigmoid diverticulitis Encephalopathy Elevated lactic acid level Epigastric abdominal pain Hypomagnesemia (Acute) Elevated liver enzymes (Acute) Acute hyperglycemia (Acute) Anemia (Acute) Precordial chest pain (Acute) Increased anion gap metabolic acidosis Abdominal pain, generalized Advanced care planning/counseling discussion Palliative care by specialist Acute on chronic blood loss anemia Elevated brain natriuretic peptide (BNP) level (Acute) Pancytopenia (Acute) Abdominal ascites (Acute) Abdominal pain (Acute) Hypocalcemia (Acute) Hyperglycemia (Acute) Elevated brain natriuretic peptide (BNP) level (Acute) Acute kidney injury superimposed on chronic kidney disease (Acute) Thrombocytopenia (Acute) Anemia requiring transfusions (Acute) Pancytopenia (Acute) Chest pain (Acute) LUCRETIA (acute kidney injury) Hematuria (Acute) Anemia (Acute) Acute urinary retention (Acute) DM type 2 (diabetes mellitus, type 2) Irradiation cystitis with hematuria UTI (urinary tract infection) (Acute) Anemia (Acute) 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 (Acute) Closed T12 spinal fracture (Acute) Prostate cancer (Acute) Hx radiation Insulin dependent type 2 diabetes mellitus Medical History CKD (chronic kidney disease) stage 3, GFR 30-59 ml/min Thrombocytopenia DM type 2 (diabetes mellitus, type 2) Hx of malignant neoplasm of prostate History of blood transfusion 11/2022 Hepatocellular carcinoma Spinal fracture of T12 vertebra History of recent hospitalization 06/2023 [facility] hepatic encephalopathy Liver spots Under surveillance, stable per patient Anxiety and depression Liver cirrhosis secondary to FOFANA Anemia of chronic disease under surveillance History of panic attacks Gout No current issues GERD (gastroesophageal reflux disease) GAVE (gastric antral vascular ectasia) Hypertension Hx Esophageal varices EGD 05/22/23 ([facility]): Grade 1 varices in distal esophagus without high risk stigmata Upper GI bleed Hx Psoriasis Surgical History History of left cataract surgery History of right cataract surgery History of prostate biopsy malignant S/P TIPS (transjugular intrahepatic portosystemic shunt) History of esophagogastroduodenoscopy (EGD) Most recent 05/2023 [facility] History of colonoscopy with polypectomy History of tonsillectomy and adenoidectomy History of abdominal paracentesis Multiple, most recent 01/2023 Family History Father , "3/4 liver gone due to drinking" Colorectal cancer, Onset Age: 63 Mother Lung cancer Daughter Cancer cervical and thyroid cancers Ovarian cancer Other No family history of adverse response to anesthesia 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 Smoking Status: Never smoker Second Hand Exposure: No; Do You Dip or Chew Tobacco: No; Tobacco Cessation Education Requested by Patient: No Hx Alcohol Use: No Hx Substance Use: No Preferred Language: Arabic Communication Ability: Effective Communication Ability Comment: AMS, unable to communicate Visual Impairment: No Limitations Hearing Ability: Normal Outer Diameter Technician Required: No Beliefs That Will Affect Care: None marital status: Current Living Situation: Half-Way Current Living Situation Comment: 1 level single family home 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 How many Children do You have: 6 How many Children do You have Comment: one , eldest daughter in her sleep from seizure disorder Other Information That Helps Us Care for You: No Feels Safe at Home: No Is there a partner from a previous relationship who is making you feel unsafe now?: No Any Concerns about Your Family Situation: No Would You Like to Speak to Someone About Your Situation: No Safety Concerns: Feels Safe At This Time Childhood Exposure to Second-Hand Smoke: Yes Diet Comment: "I watch my sugar, average fasting is 140 mg/dl" caffeine: Yes (cola, sugar free, decaf) during the past year weight has: remained stable Dental Care, Regularly: No Physical Activity Frequency: Does not Exercise Seatbelt Use: always Sunscreen Use: Yes Assistive Devices: Glasses, Oxygen - Continuous and Walker Review of Systems Review of Systems: At least ten systems reviewed and negative, except as noted in the HPI. Physical Exam Physical Exam: General/Neurologic: Elderly, chronically ill-appearing. NAD. Laying down in bed. A&Ox2 during periods of lucidity although mentation level waxes/wanes. Easily responsive and opens to both verbal and tactile stimulation. No slurred speech, facial drooping. HEENT: Normocephalic, atraumatic. Conjunctivae normal. External ear and nose normal, oropharynx dry. Respiratory: Normal respiratory effort, lungs clear to auscultation bilaterally. Cardiovascular: Regular rate and rhythm, normal peripheral pulses. No BLE edema. Abdomen/GI: Active bowel sounds. Protuberant, + fluid shift. Nontender to palpation in all quadrants. Extremities/MSK: No cyanosis or clubbing, actively moving all extremities. Results & Data Results & Data Vital Signs (Past 12 Hours) Vital Signs Temp Pulse Resp BP BP Pulse Ox O2 Del Method 05/12/25 14:26 63 05/12/25 14:10 18 117/46 L 99 Nasal Cannula 05/12/25 10:26 65 05/12/25 10:25 36.1 C L 65 20 104/52 L 99 Nasal Cannula O2 Flow Rate 05/12/25 14:26 05/12/25 14:10 2 05/12/25 10:26 05/12/25 10:25 2 Laboratory Results Short CBC 05/12/25 Range/Units 09:25 WBC 3.13 L (4.8-10.8) K/ul Hgb 6.8 L* (14.0-18.0) g/dl Hct 20.9 L* (42.0-52.0) % Plt Count 80 L (130-400) K/uL BMP 05/12/25 09:25 Sodium 136 Potassium 5.7 H Chloride 112 H Carbon Dioxide 19 L BUN 69 H Creatinine 2.25 H Glucose 224 H Calcium 9.0 Liver Function 05/12/25 Range/Units 09:25 Total Bilirubin 2.1 H (0.2-1.0) mg/dl AST 60 H (13-39) U/L ALT 35 (7-52) U/L Alkaline Phosphatase 396 H (34-104) U/L Albumin 2.5 L (3.4-5.0) gm/dl Urine 05/12/25 Range/Units 09:20 Urine Color Red Urine Appearance Turbid A (Clear) Urine pH 6.0 (4.5-7.5) Ur Specific [place] 1.020 (1.000-1.030) Urine Protein 3+ H (Negative) Urine Glucose (UA) Negative (Negative) Diagnostic Findings Abdomen/Pelvis CT 05/12/25 12:[address] WITHOUT CONTRAST CT DOSE: 704.54 mGy.cm HISTORY: mendoza placement confirmation TECHNIQUE: Multiaxial CT images of the abdomen and pelvis were performed without contrast. A dose lowering technique was utilized adhering to the principles of ALARA. COMPARISON STUDY: 04/01/2025 FINDINGS: There is a small right pleural effusion, increased in size, with adjacent compressive atelectasis at the right lower lung lobe. There is mild atelectasis at the left lung base. There are diffuse coronary artery calcifications. ABDOMEN: Stable gallstones without evidence of acute cholecystitis. Stable cirrhotic morphology of the liver, splenomegaly, and prominence of the portal vein consistent with cirrhosis and portal hypertension. There is a small amount of diffuse ascites. Stable TIPS shunt. Stable peripherally calcified hypodense finding at or adjacent to the pancreatic head measuring 2 cm. Adrenal glands are unremarkable. Kidneys show no hydronephrosis or calculi. There are atherosclerotic calcifications. No abdominal aortic aneurysm. Pelvis: Prostate is enlarged. Urinary bladder is nondistended. There is a small amount of gas within the urinary bladder. No Mendoza catheter seen. There is a small amount of patchy density dependently in the urinary bladder, debris versus clot. There is extensive sigmoid diverticulosis. No acute diverticulitis. No bowel inflammation or obstruction. No free air or abscess. Osseous structures: Stable mild height loss at multiple lower thoracic and upper lumbar vertebral bodies. Stable spinal degenerative changes. There are moderate degenerative changes at the hips. IMPRESSION: 1. No Mendoza catheter seen. 2. Small amount of gas in the nondistended urinary bladder. Small amount of patchy density dependently in the urinary bladder, debris versus clot. 3. Stable findings of cirrhosis, portal hypertension, and small amount of ascites. 4. Increased size of small right pleural effusion. 5. Otherwise as described. ACT 112: Negative or not required by law. The above report was generated using voice recognition software. It may contain grammatical, syntax or spelling errors. Electronically signed by: Alex Moreau M.D. 05/12/2025 12:42 PM Medications Administered Discontinued Medications Hydromorphone HCl (Hydromorphone Inj 0.5 Mg/0.5 Ml Syr) 0.5 mg IV NOW STA Stop: 05/12/25 13:59 Last Admin: 05/12/25 14:05 Dose: 0.5 mg Documented By: CAP Code Status & VTE Plan Code Status DNR/DNI - No Resuscitation Supervising Physician Co-Signing Physician Notes Attending Addendum: Case reviewed with the advanced practitioner. I have personally performed a history and physical examination on the patient. I have reviewed the advanced practitioner's documentation on the date of service referenced in note, and I agree with, and take responsibility for the plan of care. please refer to her notes for full details patient seen and examined, records reviewed by myself as well on exam, patient seen sleeping but easily awakened, oriented x 3, answering questions appropriately feels tired but ok overall has some discomfort over penile area no chest pain, dyspnea, palpitations, dizziness no abdominal pain, nausea no other symptoms VS noted and reviewed oriented x 3 , not in distress, speaks in sentences with no effort nor accessory muscle use appears weak, frail normal rate, regular rhythm, no murmurs clear breath sounds bilaterally non distended, soft, nontender no bipedal edema, erythema, warmth no neuro deficits all labs, imaging noted and reviewed ASSESSMENT AND PLAN> ACUTE BLOOD LOSS ANEMIA SECONDARY TO RECURRENT HEMATURIA HISTORY OF RADIATION CYSTITIS THROMBOCYTOPENIA, LIVER CIRRHOSIS Hg 6.7, Plt 80k pRBC ordered repeat Hg tonight anemia panel ordered Urology service consulted LUCRETIA MILD HYPERKALEMIA hold diuretics Nephro consulted other diagnoses and plan of care as per advanced practitioner's notes I spent a total of 45 minutes coordinating, documenting, and providing care for this patient, excluding time spent in the performance of separately billed services or time spent by another provider/QHP. Franko Villanueva MD (1) Hematuria Hematuria type: unspecified type Qualified Code(s): R31.9 - Hematuria, un specified
[2025-05-12] MEDS: cefTRIAXone SODIUM 2,000 MG/50 ML BAG IV STA (15:31)
[2025-05-12] MEDS ORDERED: PHARMACY GLYCEMIC MGMT CONSULT PRN (16:37)
[2025-05-12] MEDS ORDERED: DEXTROSE 50% 50 ML SYRINGE IV PRN (16:37)
[2025-05-12] MEDS ORDERED: GLUCOSE 10 TAB/TUBE PO PRN (16:37)
[2025-05-12] MEDS ORDERED: CARBOHYDRATES FOR HYPOGLYCEMIA PO PRN (16:37)
[2025-05-12] MEDS ORDERED: GLUCOSE 40% GEL 15 GM TUBE PO PRN (16:37)
[2025-05-12] MEDS ORDERED: GLUCAGON FOR INJ 1 MG VIAL SQ PRN (16:37)
[2025-05-12 16:44] LABS: Hematocrit (blood only) 19.6 % (42.0-52.0); Hemoglobin 6.2 g/dl (14.0-18.0)
--- NOTE | 2025-05-12 17:02 | Urology Consultation ---
Date of Consultation May 12, 2025 Assessment & Plan (1) Gross hematuria: Plan 74yo/M with a history of prostate cancer and recurrent hematuria status post radiation admitted with gross hematuria, anemia, LURCETIA on CKD. Urology consulted for hematuria. CT abdomen pelvis- No hydronephrosis, Small amount of gas in the nondistended urinary bladder, Small amount of patchy density dependently in the urinary bladder, debris versus clot. Patient afebrile with stable vitals at present Labscreatinine 2.25, WBCs 3.13, hemoglobin 6.2 (awaiting PRBC transfusion) Urine culture pending. Received ceftriaxone in the ED. Kan cath removed in ED. Pt has been able to void spontaneously since catheter removal per nursing. Has passed a few clots. Recommend continuing to monitor ability to void. Bladder scan/PVRs may not be accurate due to ascites. If patient develops pain/symptoms of retention or is unable to void for 4-6 hours, may need to place indwelling Kan catheter. Can hand irrigate the catheter to remove any clots/obstruction as needed. Continue supportive care and management per primary team. No acute intervention warranted at this time. Urology will follow along. History of Present Illness History of Present Illness 74-year-old male with complex past medical history including prostate cancer s/p radiotherapy on chronic Lupron suppression and history of radiation cystitis who presented to the ED via EMS from [facility] today with gross hematuria. He is admitted to medicine service. History mostly obtained from discussion with ED provider, hospitalist, and nursing staff. Most recent hospital confinement at [facility] from 04/01/25-05/07/25 for SDH/SAH after a fall. Per chart review, he required Kan catheter placement during this admission due to gross hematuria with passage of clots in the setting of radiation cystitis. He then required another 1 unit of PRBCs on 05/03 due to another drop in Hgb which was thought to be due to his gross hematuria and passage of clots. There was an attempt to remove his urinary catheter on 05/03 however he was noted to be retaining therefore it was subsequently replaced. Most recently had paracentesis done on 05/05. Patient was discharged to [facility] on 05/07. On arrival to the ED today, his Kan catheter was removed due to leakage around catheter. Patient was seen at bedside in the ED. He is awake and resting in bed on arri amisha. No acute distress. Pt was reportedly complaining of pain at the tip of his penis. He did spontaneously void with passage of a few blood clots per nursing staff. At the time of my exam, he denied any penile pain or discomfort. He denied bladder pain or pressure. Allergies Allergy/AdvReac Type Severity Reaction Status Date / Time No Known Allergies Allergy Mild Verified 03/03/25 11:08 Home Medications Medication Instructions Recorded Confirmed Type allopurinol 100 mg tablet 200 mg PO QAM 05/16/20 05/12/25 History mqwgyrzwxwpg-uhg-mixsr acid-vit 1 tab PO QAM 05/17/23 05/12/25 History K-lycop 400 mcg-20 mcg-370 mcg tablet (Men's 50 Plus Multivitamin) duloxetine 30 mg capsule,delayed 30 mg PO QAM 02/02/24 05/12/25 History release pantoprazole 40 mg tablet,delayed 40 mg PO BID 02/02/24 05/12/25 History release rifaximin 550 mg tablet (Xifaxan) 550 mg PO BID 02/02/24 05/12/25 History finasteride 5 mg tablet 5 mg PO QAM 03/20/24 05/12/25 History insulin glargine 100 unit/mL (3 38 unit subcut QAM 05/20/24 05/12/25 History mL) subcutaneous pen (Lantus Solostar U-100 Insulin) oxybutynin chloride 5 mg tablet 5 mg PO TID PRN Bladder Spasms 05/20/24 05/12/25 History solifenacin 5 mg tablet 5 mg PO QAM 05/20/24 05/12/25 History zinc gluconate 50 mg tablet 50 mg PO QAM ##0 05/20/24 05/12/25 History furosemide 40 mg tablet 40 mg PO QAM #30 tabs 05/30/24 05/12/25 Rx spironolactone 100 mg tablet 100 mg PO QAM #30 tabs 05/30/24 05/12/25 Rx cholecalciferol (vitamin D3) 25 50 mcg PO QAM 05/12/25 05/12/25 History mcg (1,000 unit) tablet ciprofloxacin HCl 500 mg tablet 500 mg PO QAM 05/12/25 05/12/25 History ferrous sulfate 325 mg (65 mg 325 mg PO BID 05/12/25 05/12/25 History iron) tablet furosemide 20 mg tablet 20 mg PO HS 05/12/25 05/12/25 History insulin aspart U-100 100 unit/mL 1 sliding scale dose subcut 05/12/25 05/12/25 History subcutaneous solution USEASDIRECTD lactulose 10 gram/15 mL oral 20 g PO BID 05/12/25 05/12/25 History solution levocarnitine 1 gram/10 mL oral 1 g PO BID 05/12/25 05/12/25 History solution Patient History Medical History CKD (chronic kidney disease) stage 3, GFR 30-59 ml/min Thrombocytopenia DM type 2 (diabetes mellitus, type 2) Hx of malignant neoplasm of prostate History of blood transfusion 11/2022 Hepatocellular carcinoma Spinal fracture of T12 vertebra History of recent hospitalization 06/2023 [facility] hepatic encephalopathy Liver spots Under surveillance, stable per patient Anxiety and depression 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 Anemia of chronic disease under surveillance History of panic attacks Gout No current issues GERD (gastroesophageal reflux disease) GAVE (gastric antral vascular ectasia) Hypertension Hx Esophageal varices EGD 05/22/23 ([facility]): Grade 1 varices in distal esophagus without high risk stigmata Upper GI bleed Hx Psoriasis Surgical History History of left cataract surgery History of right cataract surgery History of prostate biopsy malignant S/P TIPS (transjugular intrahepatic portosystemic shunt) History of esophagogastroduodenoscopy (EGD) Most recent 05/2023 [facility] History of colonoscopy with polypectomy History of tonsillectomy and adenoidectomy History of abdominal paracentesis Multiple, most recent 01/2023 Family History Father , "3/4 liver gone due to drinking" Colorectal cancer, Onset Age: 63 Mother Lung cancer Daughter Cancer cervical and thyroid cancers Ovarian cancer Other No family history of adverse response to anesthesia 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 Smoking Status: Never smoker Second Hand Exposure: No; Hx Alcohol Use: No Hx Substance Use: No Preferred Language: Pakistani Communication Ability: Effective Communication Ability Comment: AMS, unable to communicate Visual Impairment: No Limitations Hearing Ability: Normal Ladle Filler Required: No Beliefs That Will Affect Care: None marital status: Current Living Situation: Alone Current Living Situation Comment: 1 level single family home 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 How many Children do You have: 6 How many Children do You have Comment: one , eldest daughter in her sleep from seizure disorder Feels Safe at Home: Yes Childhood Exposure to Second-Hand Smoke: Yes Diet Comment: "I watch my sugar, average fasting is 140 mg/dl" caffeine: Yes (cola, sugar free, decaf) during the past year weight has: remained stable Dental Care, Regularly: No Physical Activity Frequency: Does not Exercise Seatbelt Use: always Sunscreen Use: Yes Assistive Devices: Walker Review of Systems Review of Systems: All systems reviewed & are unremarkable except as noted in HPI & below Physical Exam Constitutional: no acute distress Chronically ill-appearing Respiratory: no respiratory distress and no labored breathing Gastrointestinal (Abdomen): Percussion/Palpation: abdomen soft; abdomen nontender Skin: No visible rashes or lesions to exposed skin areas Neurologic: awake Psychiatric: Orientation: alert, oriented to person and cooperative Results & Data Vital Signs (Past 12 Hours) Vital Signs Temp Pulse Resp BP BP Pulse Ox O2 Del Method 05/12/25 14:26 63 05/12/25 14:10 18 117/46 L 99 Nasal Cannula 05/12/25 10:26 65 05/12/25 10:25 36.1 C L 65 20 104/52 L 99 Nasal Cannula O2 Flow Rate 05/12/25 14:26 05/12/25 14:10 2 05/12/25 10:26 05/12/25 10:25 2 PG Care Time/CCT Total # of Minutes Spent Total Time Spent with Patient: Total time spent is greater than 50% in coordination of care (as documented) at patient's floor/unit and/or counseling patient: Coding Level of Care Code 63948 INT INP/OBS CARE 2/55MIN Diagnoses Gross hematuria R31.0
[2025-05-12] MEDS ORDERED: POLYETHYLENE (MIRALAX) 17 GM PACK PO PRN (17:06)
[2025-05-12] MEDS ORDERED: MAGNESIUM HYDROXIDE SUSP 30 ML UDC PO PRN (17:06)
--- NOTE | 2025-05-12 17:13 | CT Scan Report ---
CT head without contrast History: AMS Comparison: 04/01/2025 Technique: Using multidetector thin collimation helical acquisition technique, axial, coronal and sagittal CT images from the skull base to the vertex were obtained without intravenous contrast. Dose reduction techniques were achieved by using automatic exposure control and/or adjustment of mA and/or kV according to patient size and/or use of iterative reconstruction technique. Findings: The prior multifocal areas of mild subarachnoid hemorrhage on prior are no longer seen. No persistent subarachnoid hemorrhage. Over the right cerebral convexity, there is interval increase in a homogeneous low attenuating subdural collection, which now measures up to 11 mm in the coronal plane, previously 3.5 mm. Notably a prior left-sided cerebral convexity 3.5 cm homogeneous low attenuating subdural collection appears to have resolved. There is new slight leftward midline shift of approximately 3 mm. The calvarium and skull base appear intact. Bilateral pseudophakia. Moderate to marked cerebral atrophy. No hydrocephalus. Impression: There are shifting subdural homogeneously low attenuating collections, which is now increased on the right, and the prior left-sided subdural collection has resolved. There is now approximately 3 mm of leftward midline shift. These may represent chronic subdural hematomas or hygromas. Electronically signed by Jose Ramon Alexander 05-12-2025 5:12 PM
[2025-05-12] MEDS: INSULIN ASPART PER UNIT CHARGE SC SCH (17:35)
[2025-05-12 18:16] LABS: Calcium 9.1 mg/dl (8.6-10.3); Potassium 5.3 mmol/L (3.5-5.1)
[2025-05-12 18:22] LABS: Creatinine Clr Calc Pharmacy 27.2 ml/min
[2025-05-12] MEDS: FERROUS SULFATE 325 MG TAB PO SCH (20:06)
[2025-05-12] MEDS: rifAXIMin 550 MG TABLET PO SCH (20:06)
[2025-05-12] MEDS: PANTOprazole 40 MG TAB PO SCH (20:06)
[2025-05-12] MEDS: LACTULOSE SYRUP 10 GM/15 ML BTL 960 ML PO SCH (20:27)
[2025-05-12] MEDS: LANTUS PER UNIT CHARGE SC ONE (20:45)
[2025-05-12] MEDS ORDERED: LANTUS PER UNIT CHARGE SQ SCH (21:00)
[2025-05-12 23:20] LABS: Hematocrit (blood only) 19.8 % (42.0-52.0); Hemoglobin 6.4 g/dl (14.0-18.0)
[2025-05-13] MEDS: oxyBUTYnin chloride 5 MG TAB PO PRN (05:41)
[2025-05-13 05:54] LABS: Hematocrit (blood only) 21.9 % (42.0-52.0); Mean Corpuscular Hemoglobin 31.7 pg (25.0-34.0); Mean Corpuscular Volume 99.1 fL (80.0-100.0); Mean Platelet Volume 11.3 fL (9.4-12.4); Platelet Count 62 K/uL (130-400); RDW Coefficient of Variation 20.8 % (11.5-14.5); RDW Standard Deviation 73.9 fL (36.4-46.3); Red Blood Count 2.21 M/uL (4.70-6.10); White Blood Count 3.61 K/ul (4.8-10.8)
[2025-05-13 06:03] LABS: Anisocytosis Present; Ovalocytes 1+; Polychromasia 1+
[2025-05-13 07:17] LABS: Albumin Globulin Ratio 0.6 (0.9-2); Albumin Level 2.5 gm/dl (3.4-5.0); BUN Creatinine Ratio 33.2 (10-20); Bilirubin,Total 1.5 mg/dl (0.2-1.0); Calcium 8.9 mg/dl (8.6-10.3); Creatinine Clr Calc Pharmacy 28.6 ml/min; Globulin 4.5 gm/dl (2.5-4.0); Magnesium 1.6 mg/dl (1.7-2.4); Phosphorus 4.7 mg/dl (2.5-4.9); Potassium 5.6 mmol/L (3.5-5.1)
[2025-05-13 07:50] LABS: Estimated Average Glucose 120 mg/dl; Hemoglobin A1C 5.8 % (4.5-5.6)
[2025-05-13] MEDS: MAGNESIUM SULFATE / D5W 1 GM/100 ML BAG IV ONE (08:17)
--- NOTE | 2025-05-13 08:57 | Pharmacy Report ---
Pharmacy Glycemic Short Note 2 - Date of Service May 13, 2025 - Glycemic Short BSG Results (Last 24 hours): 05/12/25 05/12/25 05/12/25 09:25 15:37 17:38 Glucose 224 H Cancelled 151 H POC Glucose 05/12/25 05/13/25 05/13/25 20:17 04:52 07:57 Glucose 61 L POC Glucose 252 H 74 OUTPATIENT ANTIDIABETIC REGIMEN: * Lantus 38 units qAM, novolog SSI ASSESSMENT: * 74 year old admitted with gross hematuria. Type 2 diabetic - pharmacy consulted for glycemic management. Patient given one time dose of Lantus last evening as likely did not receive his AM dose that morning per reports. RN rep orting patient has been confused, not eating much. BSGs this AM lower 61 mg/d, 74 mg/dL - will hold AM basal but have scale on for this evening with reduced dosing. PLAN FOR INPATIENT GLYCEMIC CONTROL: * Hold outpatient oral diabetes medications * Basal insulin * Lantus 0-10 units hs * Bolus insulin * NovoLog per scale ACHS or Q6hrs while NPO * Goal Range: Low 110 mg/dL - High 160 mg/dL * Correction Factor: 30 mg/dL/unit * Nutritional / Prandial insulin per carb ratio of 1 unit per 10 grams CHO consumed
[2025-05-13] MEDS: CEROVITE ADV FORMULA TAB PO SCH (10:20)
[2025-05-13] MEDS: DULoxetine HCL 30 MG CAP PO SCH (10:20)
[2025-05-13] MEDS: allopurinoL 100 MG TAB PO SCH (10:20)
[2025-05-13] MEDS: FINASTERIDE 5 MG TAB PO SCH (10:20)
[2025-05-13] MEDS: OXYBUTYNIN CHLORIDE XL 5 MG TABCR PO SCH (10:32)
--- NOTE | 2025-05-13 11:29 | Hospitalist Progress Note ---
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: Plan Patient is a medically complex 74-year-old male with past medical history significant for decompensated FOFANA cirrhosis s/p TIPS with esophageal varices, recurrent ascites with SBP, HCC [on supportive treatment only/not candidate for cancer directed therapy due to age and comorbidities per outpatient oncology documentation], thrombocytopenia, chronic anemia, gastric antral vascular ectas ia, hepatic encephalopathy, non-occlusive portal vein thrombosis, prostate cancer s/p radiotherapy on chronic Lupron suppression c/b radiation cystitis with recurrent hematuria, CKD stage IIIa, insulin-requiring DMII and other problems listed below who presented to the ED via EMS from [facility] with gross hematuria. Acute blood loss anemia likely due to recurrent hematuria secondary to chronic radiation cystitis --CT ABD:Small amount of gas in the nondistended urinary bladder. Small amount of patchy density dependently in the urinary bladder, debris versus clot. Stable findings of cirrhosis, portal hypertension, and small amount of ascites. Increased size of small right pleural effusion. --Transfuse PRBCs as needed Monitor H&H Continue Kan catheter for now Appreciate urology input Avoid anticoagulation Bladder scan as needed Complicated Urinary tract infection--POA H/O prostate cancer S/P radiation, Lupron Urine culture: Preliminary growing Enterococcus faecium Empirically started on daptomycin Will consider ID evaluation if needed Continue Kan catheter for now Urology following Acute kidney injury on CKD stage IIIa Baseline 1.8-2.0 Monitor renal function Diuretics on hold Avoid nephrotoxic agents as able Appreciate nephrology input Hyperkalemia Likely due to LUCRETIA Continue to hold Aldactone Started on Lokelma Monitor potassium levels Received a dose of IV Lasix Appreciate nephrology input Hypomagnesemia Replete and monitor Blurry Vision/Abnormal CT --CT head:There are shifting subdural homogeneously low attenuating collections, which is now increased on the right, and the prior left-sided subdural collection has resolved. There is now approximately 3 mm of leftward midline shift. These may represent chronic subdural hematomas or hygromas. -Recent ground-level fall on 04/01/25 leading to SDH Repeat head CT at [facility] on 04/15 --> resolution of previously described subarachnoid and intraventricular hemorrhage S/p course of Keppra while at [facility], no surgical intervention required Continue levocarnitine --Obtain MRI brain Neuro Checks Requested Neurology Evaluation Decompensated FOFANA cirrhosis s/p TIPs w/ esophageal varices Recurrent ascites, history of SBP Waxing/waning mentation level in ED --> ? possible baseline Recently completed ABX course last month during admission at [facility] for SBP -Last paracentesis done on 05/05 at [facility] -Ascitic fluid cx grew Serratia marcescens susceptible to cefepime/Rocephin/cipro/gent/Bactrim -Was started on prophylactic cipro for SBP prevention as directed by hepat ology CTAP: stable findings of cirrhosis, portal hypertension, and small amount of ascites. Hold prophylactic cipro for now while on IV Rocephin to cover if SBP present however have low suspicion Continue home lactulose, Xifaxan Resume home diuretics as able Monitor volume status Will need IR for paracentesis as able Increased size of small R pleural effusion On 2L NC, resp status stable Continue to monitor for now Resume diuretics as able Insulin-dependent DM II Hgb A1c 9.2% 1mo ago HbA1c 5.8 currently Continue insulin per protocol Appreciate glycemic pharm assistance Antineoplastic chemotherapy induced pancytopenia UDAY Continue iron supplementation Monitor CBC Gout Continue allopurinol GERD Continue PPI DVT Px: SCDs/TEDs Code Status: DNR/DNI Disposition: PT OT prior to discharge Admission and Anticipated Discharge Date Admission Date: May 12, 2025 Subjective Patient is seen and examined at bedside States having blurry vision this morning Also reports intermittent dizziness Noted hematuria in Kan catheter Denies any chest pain, dyspnea, abdominal pain Oriented during encounter Review of Systems Review of Systems: All systems reviewed & are unremarkable except as noted in Subjective Physical Exam Physical Exam: Physical Exam: Vitals signs as noted above General Appearance:Thin, frail, no apparent distress, ill appearing Head: normocephalic, Atraumatic Eyes: normal inspection, EOMI Neck: supple, Trachea midline Respiratory/Chest: Normal breath sounds, CTA, No accessory muscle use Cardiovascular: S1, S2, No murmur Abdomen/GI:Soft, distended, Non tender,+umbilical hernia, Bowel sounds present Extremities/Musculoskeletal:normal inspection, Trace edema Neurologic/Psych:AAOX3, grossly no focal neurological deficits Skin: normal color, warm Results & Data Results & Data Vital Signs (Past 12 Hours) Vital Signs Temp Pulse Pulse Resp BP Pulse Ox O2 Del Method 05/13/25 10:50 36.7 C 68 21 112/56 L 98 Nasal Cannula 05/13/25 07:11 36.6 C 77 18 127/69 98 Nasal Cannula 05/13/25 03:55 36.4 C L 70 18 134/59 L 99 Nasal Cannula 05/13/25 01:35 66 O2 Flow Rate 05/13/25 10:50 2 05/13/25 07:11 2 05/13/25 03:55 2 05/13/25 01:35 Laboratory Results Short CBC 05/12/25 05/12/25 05/12/25 Range/Units 09: 16:05 22:56 WBC 3.13 L (4.8-10.8) K/ul Hgb 6.8 L* 6.2 L* 6.4 L* (14.0-18.0) g/dl Hct 20.9 L* 19.6 L* 19.8 L* (42.0-52.0) % Plt Count 80 L (130-400) K/uL 05/13/25 Range/Units 04:52 WBC 3.61 L (4.8-10.8) K/ul Hgb 7.0 L (14.0-18.0) g/dl Hct 21.9 L (42.0-52.0) % Plt Count 62 L (130-400) K/uL BMP 05/12/25 05/12/25 05/12/25 09:25 15:37 17:38 Sodium 136 Cancelled 136 Potassium 5.7 H Cancelled 5.3 H Chloride 112 H Cancelled 112 H Carbon Dioxide 19 L Cancelled 19 L BUN 69 H Cancelled 66 H Creatinine 2.25 H Cancelled 2.13 H Glucose 224 H Cancelled 151 H Calcium 9.0 Cancelled 9.1 05/13/25 04:52 Sodium 138 Potassium 5.6 H Chloride 114 H Carbon Dioxide 20 L BUN 68 H Creatinine 2.05 H Glucose 61 L Calcium 8.9 Liver Function 05/12/25 05/13/25 Range/Units 09:25 04:52 Total Bilirubin 2.1 H 1.5 H (0.2-1.0) mg/dl AST 60 H 58 H (13-39) U/L ALT 35 34 (7-52) U/L Alkaline Phosphatase 396 H 384 H (34-104) U/L Albumin 2.5 L 2.5 L (3.4-5.0) gm/dl Urine 05/12/25 Range/Units 09:20 Urine Color Red Urine Appearance Turbid A (Clear) Urine pH 6.0 (4.5-7.5) Ur Specific [place] 1.020 (1.000-1.030) Urine Protein 3+ H (Negative) Urine Glucose (UA) Negative (Negative) (1) Hematuria Hematuria type: unspecified type Qualified Code(s): R31.9 - Hematuria, unspecified
--- NOTE | 2025-05-13 11:50 | Nephrology Consultation ---
Date of Consultation May 13, 2025 Assessment & Plan (1) Acute kidney injury superimposed on stage 3a chronic kidney disease: He has many comorbid diseases and has veyr poor baseline health currently and has lot of recent health issues/Admission--bleeding, infection and so on with background decompensated FOFANA cirrhosis. more recent creat is high 1's and low 2's but few months back had normal creat. Creat is currently trending down--cause likely from big drop in hgb to 6.2 causing hemodynamic LUCRETIA--he is very susceptible to this. Creat was 2.25 and now is 2.05. NO workup needed for LUCRETIA. has ascites but not much edema. Continue Mendoza to avoid obstruction. NO need of Iv fluid. One dose of lasix for hyperkalemia (2) Gross hematuria: with low hgb and still has gross hematuria. recurrent issue. urology note reviewed. (3) Hyperkalemia: K was 5.7 but is still 5.6. Continue Lokelma but will also add one dose of lasix 40 mg iv for renal K loss Plan Case complexity high. total time spent 62 mins History of Present Illness Attending Physician: Tavo Paul MD History of Present Illness 74/M with decompensated FOFANA cirrhosis s/p TIPS with esophageal varices, recurrent ascites with SBP, HCC on supportive treatment only/not candidate for cancer directed therapy due to age and comorbidities per outpatient oncology documentation, thrombocytopenia, chronic anemia, gastric antral vascular ectasia, hepatic encephalopathy, non-occlusive portal vein thrombosis, prostate cancer s/p radiotherapy on chronic Lupron suppression c/b radiation cystitis with recurrent hematuria, CKD stage IIIB ( more recent baseline creat about 2 but variable) , insulin-requiring DMII and other problems listed below who presented to the ED via EMS from [facility] with gross hematuria. Most recent hospital confinement at [facility] from 04/01/25-05/07/25 after sustaining a fall and was found to have a SDH/SAH. Seen and evaluated by NSGY. Completed 7-day inpatient course of Keppra. No surgical intervention required. Hospital course was complicated by encephalopathy with waxing/waning mental status as well as SBP. Patient underwent paracentesis on 04/09, 04/12, 04/16 and 04/22 with all fluid studies consistent with SBP. Ascitic fluid culture on 04/09 consistent with Serratia marcescens with susceptibility to cefepime, Rocephin, ciprofloxacin, gentamicin and Bactrim. Completed antibiotic course, consisting of IV meropenem and po ciprofloxacin, for SBP on 04/29. He was started on po ciprofloxacin once daily for SBP prophylaxis per hepatology recommendations. Patient also seen and evaluated by nephrology for LUCRETIA and hyperkalemia during that admission. He was also found to have acute on chronic anemia without overt bleeding initially requiring 3 units of PRBCs. He was started on iron supplementation as well based on iron studies. He required Mendoza catheter placement due to gross hematuria with passage of clots in the setting of radiation cystitis. He then required another 1 unit of PRBCs on 05/03 due to another drop in Hgb which was thought to be due to his gross hematuria and pass age of clots. There was an attempt to remove his urinary catheter on 05/03 however he was noted to be retaining therefore it was subsequently replaced. Most recently had paracentesis done on 05/05. Patient was discharged to [facility] on 05/07. Repeat head CT done 04/15 with resolution of previously described subarachnoid and intraventricular hemorrhage. Patient came yesterday from [facility] with complaint of gross hematuria and clots. very sluggish and sleepy and unable to get much history from patient. Denies any chest pain, SOB, abdominal pain, suprapubic pain or N/V on direct questioning. He does recall that he was scheduled to have paracentesis done yesterday. No reports of hematochezia, melena or hematemesis per documentation provided by [facility]. Mendoza catheter was last exchanged on 05/03 during his admission at [facility] after he failed a voiding trial. Not currently on any blood thinners. Was found to have very low hgb, Slightly high K of 5.7 and LUCRETIA 2.3 on background CKD 3B. baseline creat about 2 . has had mendoza placed with Dark blood draining. urology eval done already. ROS---very sluggish and sleepy and unable to get much history from patient. Physical Exam Physical Exam: General: Elderly, chronically ill-appearing. Sleepy and sluggish. HEENT: MM dry.neck Supple Respiratory: Normal respiratory effort, lungs clear to auscultation bilaterally. Cardiovascular: Regular rate and rhythm, normal peripheral pulses. No edema. Abdomen/GI: Ascites ++ Allergies Allergy/AdvReac Type Severity Reaction Status Date / Time No Known Allergies Allergy Mild Verified 03/03/25 11:08 Home Medications Medication Instructions Recorded Confirmed Type allopurinol 100 mg tablet 200 mg PO QAM 05/16/20 05/12/25 History [id number]-[id number] acid-vit 1 tab PO QAM 05/17/23 05/12/25 History K-lycop 400 mcg-20 mcg-370 mcg tablet (Men's 50 Plus Multivitamin) duloxetine 30 mg capsule,delayed 30 mg PO QAM 02/02/24 05/12/25 History release pantoprazole 40 mg tablet,delayed 40 mg PO BID 02/02/24 05/12/25 History release rifaximin 550 mg tablet (Xifaxan) 550 mg PO BID 02/02/24 05/12/25 History finasteride 5 mg tablet 5 mg PO QAM 03/20/24 05/12/25 History insulin glargine 100 unit/mL (3 38 unit subcut QAM 05/20/24 05/12/25 History mL) subcutaneous pen (Lantus Solostar U-100 Insulin) oxybutynin chloride 5 mg tablet 5 mg PO TID PRN Bladder Spasms 05/20/24 05/12/25 History solifenacin 5 mg tablet 5 mg PO QAM 05/20/24 05/12/25 History zinc gluconate 50 mg tablet 50 mg PO QAM ##0 05/20/24 05/12/25 History furosemide 40 mg tablet 40 mg PO QAM #30 tabs 05/30/24 05/12/25 Rx spironolactone 100 mg tablet 100 mg PO QAM #30 tabs 05/30/24 05/12/25 Rx cholecalciferol (vitamin D3) 25 50 mcg PO QAM 05/12/25 05/12/25 History mcg (1,000 unit) tablet ciprofloxacin HCl 500 mg tablet 500 mg PO QAM 05/12/25 05/12/25 History ferrous sulfate 325 mg (65 mg 325 mg PO BID 05/12/25 05/12/25 History iron) tablet furosemide 20 mg tablet 20 mg PO HS 05/12/25 05/12/25 History insulin aspart U-100 100 unit/mL 1 sliding scale dose subcut 05/12/25 05/12/25 History subcutaneous solution USEASDIRECTD lactulose 10 gram/15 mL oral 20 g PO BID 05/12/25 05/12/25 History solution levocarnitine 1 gram/10 mL oral 1 g PO BID 05/12/25 05/12/25 History solution Patient History Medical History CKD (chronic kidney disease) stage 3, GFR 30-59 ml/min Thrombocytopenia DM type 2 (diabetes mellitus, type 2) Hx of malignant neoplasm of prostate History of blood transfusion 11/2022 Hepatocellular carcinoma Spinal fracture of T12 vertebra History of recent hospitalization 06/2023 [facility] hepatic encephalopathy Liver spots Under surveillance, stable per patient Anxiety and depression Liver cirrhosis secondary to FOFANA Anemia of chronic disease under surveillance History of panic attacks Gout No current issues GERD (gastroesophageal reflux disease) GAVE (gastric antral vascular ectasia) Hypertension Hx Esophageal varices EGD 05/22/23 ([facility]): Grade 1 varices in distal esophagus without high risk stigmata Upper GI bleed Hx Psoriasis Surgical History History of left cataract surgery History of right cataract surgery History of prostate biopsy malignant S/P TIPS (transjugular intrahepatic portosystemic shunt) History of esophagogastroduodenoscopy (EGD) Most recent 05/2023 [facility] History of colonoscopy with polypectomy History of tonsillectomy and adenoidectomy History of abdominal paracentesis Multiple, most recent 01/2023 Family History Father , "3/4 liver gone due to drinking" Colorectal cancer, Onset Age: 63 Mother Lung cancer Daughter Cancer cervical and thyroid cancers Ovarian cancer Other No family history of adverse response to anesthesia 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 Smoking Status: Never smoker Second Hand Exposure: No; Do You Dip or Chew Tobacco: No; Tobacco Cessation Education Requested by Patient: No Hx Alcohol Use: No Hx Substance Use: No Preferred Language: Greenlandic Communication Ability: Effective Communication Ability Comment: AMS, unable to communicate Visual Impairment: No Limitations Hearing Ability: Normal Range Examiner Required: No Beliefs That Will Affect Care: None marital status: Current Living Situation: Care Home Current Living Situation Comment: 1 level single family home 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 How many Children do You have: 6 How many Children do You have Comment: one , eldest daughter in her sleep from seizure disorder Other Information That Helps Us Care for You: No Feels Safe at Home: No Is there a partner from a previous relationship who is making you feel unsafe now?: No Any Concerns about Your Family Situation: No Would You Like to Speak to Someone About Your Situation: No Safety Concerns: Feels Safe At This Time Childhood Exposure to Second-Hand Smoke: Yes Diet Comment: "I watch my sugar, average fasting is 140 mg/dl" caffeine: Yes (cola, sugar free, decaf) during the past year weight has: remained stable Dental Care, Regularly: No Physical Activity Frequency: Does not Exercise Seatbelt Use: always Sunscreen Use: Yes Assistive Devices: Glasses, Oxygen - Continuous and Walker Results & Data Vital Signs (Past 12 Hours) Vital Signs Temp Pulse Pulse Resp BP Pulse Ox O2 Del Method 05/13/25 10:50 36.7 C 68 21 112/56 L 98 Nasal Cannula 05/13/25 07:11 36.6 C 77 18 127/69 98 Nasal Cannula 05/13/25 03:55 36.4 C L 70 18 134/59 L 99 Nasal Cannula 05/13/25 01:35 66 O2 Flow Rate 05/13/25 10:50 2 05/13/25 07:11 2 05/13/25 03:55 2 05/13/25 01:35
[2025-05-13] MEDS: DAPTOmycin 400 MG in SYRINGE 0 ML IV SCH (13:00)
[2025-05-13] MEDS: FUROSEMIDE 40 MG/4 ML VIAL IV ONE (13:01)
[2025-05-13 13:45] LABS: Hematocrit (blood only) 19.9 % (42.0-52.0); Hemoglobin 6.3 g/dl (14.0-18.0)
--- NOTE | 2025-05-13 14:06 | Urology Progress Note ---
Date of Service May 13, 2025 Assessment & Plan (1) Gross hematuria: Plan 74yo/M with a history of prostate cancer and recurrent hematuria status post radiation admitted with gross hematuria, anemia, LUCRETIA on CKD. Urology consulted for hematuria. CT abdomen pelvis- No hydronephrosis, Small amount of gas in the nondistended urinary bladder, Small amount of patchy density dependently in the urinary bladder, debris versus clot. Patient afebrile with stable vitals at present Labscreatinine 2.25, WBCs 3.61, hemoglobin 6.3 Urine culture prelim enterococcus. Kan catheter replaced yesterday evening by nursing staff. Currently draining light red urine without clot. Continue to monitor urine output, okay to hand irrigate as needed for clots, retention, suprapubic pain. Continue supportive care and management per primary team. Continue antibiotics and tailor per culture sensitivities. No acute intervention warranted at this time. Urology will follow along. Admission and Anticipated Discharge Date Admission Date: May 12, 2025 Subjective Pt seen at bedside today Awake and resting in bed on arrival No acute distress Kan catheter placed last night by nursing staff Denies significant pain at present Kan intact and draining light red urine Review of Systems Constitutional: as per Subjective / HPI Genitourinary: + as per Subjective / HPI Physical Exam Constitutional: no acute distress Chronically ill-appearing Respiratory: no respiratory distress and no labored breathing Neurologic: awake Psychiatric: Orientation: alert, oriented to person and cooperative Genitourinary: Kan intact Results & Data Vital Signs (Past 12 Hours) Vital Signs Temp Pulse Resp BP Pulse Ox O2 Del Method O2 Flow Rate 05/13/25 10:50 36.7 C 68 21 112/56 L 98 Nasal Cannula 2 05/13/25 07:11 36.6 C 77 18 127/69 98 Nasal Cannula 2 05/13/25 03:55 36.4 C L 70 18 134/59 L 99 Nasal Cannula 2 PG Care Time/CCT Total # of Minutes Spent Total Time Spent with Patient: Total time spent is greater than 50% in coordination of care (as documented) at patient's floor/unit and/or counseling patient: Coding Level of Care Code 62994 SUB INP/OBS CARE 2/35MIN Diagnoses Gross hematuria R31.0
[2025-05-13] MEDS: SODIUM ZIRCONIUM CYCLOSILICATE 10 GM PACKET PO SCH (14:49)
[2025-05-13] MEDS: cefTRIAXone SODIUM 2,000 MG/50 ML BAG IV SCH (14:52)
[2025-05-13] MEDS: HYDROmorphone INJ 0.5 MG/0.5 ML SYR IV STA (16:12)
--- NOTE | 2025-05-13 16:30 | Neurology Consultation ---
Date of Consultation May 13, 2025 Assessment & Plan (1) Changes in vision: CT scan of the head was reviewed and there might be possible changes within the left NET DEVELOPER territory. Concern for NET DEVELOPER compression due to hygromas Plan Recommend MRI of the brain in addition to MRA of the head and neck Continue to manage multiple other comorbidities per primary team. Further recommendations to follow Telehealth Consultation Telehealth Information Telehealth Information: I performed this visit using a real-time telehealth connection between my location and the patients location ([facility]). After connecting through interactive tele-video, patient was identified by name and date of and/or wristband check.Patient (or authorized healthcare inside account representative) was informed that this was a telemedicine visit and it was being conducted confidentially over secure lines. My office door was closed and no one else was present in the room with me.Patient (or authorized healthcare inside account representative) provided consent to proceed with the visit, expressed an understanding of privacy and security of the telemedicine visit, and gave permission to have a hospital inside account representative in the room in order to assist with the visit and to conduct portions of the visit, as needed. I informed the patient (or authorized healthcare inside account representative) that I reviewed their record and presented the opportunity for them to ask any questions regarding the visit today. The patient agreed to participate. 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, recurrent ascites, hepatocellular carcinoma, hepatic encephalopathy is history of portal vein thrombosis, prostate cancer status post radiotherapy on chronic Lupron suppression with radiation cystitis with recurrent hematuria, CKD stage III, insulin-dependent DM who presented to the hospital on 05/12 for gross hematuria was found to be anemic, was transfused packed RBCs, was found to have a right pleural effusion and a complicated UTI The patient was reporting blurry vision and CT scan of the head showed shifting low attenuating subdural collections that are more increased on the right side, with resolving of the previously seen left subdural hematoma. That are resolved. The patient was [place] [facility] [place] admitted 04/01 after a fall complicated by subdural hematoma/subarachnoid hemorrhage,no intervention needed was started on short course of Keppra for 7 days, hospital course was complicated by waxing and waning encephalopathy that was thought to be related to cefepime the patient also received 4 units of packed RBCs during that admission. Neurology was consulted for CT head changes. The patient had reported blurry vision. Upon my evaluation the patient was laying in bed comfortable, no cirrhosis. Vision he said it comes and goes, he had it this morning but now he does not have any. He denies any numbness or weakness, has been very weak lately. Denies any current blurriness of his vision however upon exam he has a possible right upper quadrantanopsia, he is appearing to be moving bilateral upper and lower extremities equally. Allergies Allergy/AdvReac Type Severity Reaction Status Date / Time No Known Allergies Allergy Mild Verified 03/03/25 11:08 Home Medications Medication Instructions Recorded Confirmed Type allopurinol 100 mg tablet 200 mg PO QAM 05/16/20 05/12/25 History foseaslspaqp-lfe-wxixe acid-vit 1 tab PO QAM 05/17/23 05/12/25 History K-lycop 400 mcg-20 mcg-370 mcg tablet (Men's 50 Plus Multivitamin) duloxetine 30 mg capsule,delayed 30 mg PO QAM 02/02/24 05/12/25 History release pantoprazole 40 mg tablet,delayed 40 mg PO BID 02/02/24 05/12/25 History release rifaximin 550 mg tablet (Xifaxan) 550 mg PO BID 02/02/24 05/12/25 History finasteride 5 mg tablet 5 mg PO QAM 03/20/24 05/12/25 History insulin glargine 100 unit/mL (3 38 unit subcut QAM 05/20/24 05/12/25 History mL) subcutaneous pen (Lantus Solostar U-100 Insulin) oxybutynin chloride 5 mg tablet 5 mg PO TID PRN Bladder Spasms 05/20/24 05/12/25 History solifenacin 5 mg tablet 5 mg PO QAM 05/20/24 05/12/25 History zinc gluconate 50 mg tablet 50 mg PO QAM ##0 05/20/24 05/12/25 History furosemide 40 mg tablet 40 mg PO QAM #30 tabs 05/30/24 05/12/25 Rx spironolactone 100 mg tablet 100 mg PO QAM #30 tabs 05/30/24 05/12/25 Rx cholecalciferol (vitamin D3) 25 50 mcg PO QAM 05/12/25 05/12/25 History mcg (1,000 unit) tablet ciprofloxacin HCl 500 mg tablet 500 mg PO QAM 05/12/25 05/12/25 History ferrous sulfate 325 mg (65 mg 325 mg PO BID 05/12/25 05/12/25 History iron) tablet furosemide 20 mg tablet 20 mg PO HS 05/12/25 05/12/25 History insulin aspart U-100 100 unit/mL 1 sliding scale dose subcut 05/12/25 05/12/25 History subcutaneous solution USEASDIRECTD lactulose 10 gram/15 mL oral 20 g PO BID 05/12/25 05/12/25 History solution levocarnitine 1 gram/10 mL oral 1 g PO BID 05/12/25 05/12/25 History solution Patient History Medical History CKD (chronic kidney disease) stage 3, GFR 30-59 ml/min Thrombocytopenia DM type 2 (diabetes mellitus, type 2) Hx of malignant neoplasm of prostate History of blood transfusion 11/2022 Hepatocellular carcinoma Spinal fracture of T12 vertebra History of recent hospitalization 06/2023 [facility] hepatic encephalopathy Liver spots Under surveillance, stable per patient Anxiety and depression Liver cirrhosis secondary to [place] Anemia of chronic disease under surveillance History of panic attacks Gout No current issues GERD (gastroesophageal reflux disease) GAVE (gastric antral vascular ectasia) Hypertension Hx Esophageal varices EGD 05/22/23 ([facility]): Grade 1 varices in distal esophagus without high risk stigmata Upper GI bleed Hx Psoriasis Surgical History History of left cataract surgery History of right cataract surgery History of prostate biopsy malignant S/P TIPS (transjugular intrahepatic portosystemic shunt) History of esophagogastroduodenoscopy (EGD) Most recent 05/2023 [facility] History of colonoscopy with polypectomy History of tonsillectomy and adenoidectomy History of abdominal paracentesis Multiple, most recent 01/2023 Family History Father , "3/4 liver gone due to drinking" Colorectal cancer, Onset Age: 63 Mother Lung cancer Daughter Cancer cervical and thyroid cancers Ovarian cancer Other No family history of adverse response to anesthesia 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 Smoking Status: Never smoker Second Hand Exposure: No; Do You Dip or Chew Tobacco: No; Tobacco Cessation Education Requested by Patient: No Hx Alcohol Use: No Hx Substance Use: No Preferred Language: Spanish Communication Ability: Impaired Communication Ability Comment: AMS, unable to communicate Visual Impairment: No Limitations Hearing Ability: Normal Manager Resource Required: No Beliefs That Will Affect Care: None marital status: Current Living Situation: [facility] Current Living Situation Comment: 1 level single family home 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 How many Children do You have: 6 How many Children do You have Comment: one , eldest daughter in her sleep from seizure disorder Other Information That Helps Us Care for You: No Feels Safe at Home: No Is there a partner from a previous relationship who is making you feel unsafe now?: No Any Concerns about Your Family Situation: No Would You Like to Speak to Someone About Your Situation: No Safety Concerns: Feels Safe At This Time Childhood Exposure to Second-Hand Smoke: Yes Diet Comment: "I watch my sugar, average fasting is 140 mg/dl" caffeine: Yes (cola, sugar free, decaf) during the past year weight has: remained stable Dental Care, Regularly: No Physical Activity Frequency: Does not Exercise Seatbelt Use: always Sunscreen Use: Yes Assistive Devices: Glasses, Oxygen - Continuous and Walker Review of Systems Did not offer any complaints other than his extensive H&P, he states that there is always something. Physical Exam General Constitutional: Appearance normally developed Head and face: normocephalic and atraumatic Eyes: no ptosis, no anisocoria, and no dysconjugate gaze Respiratory: normal effort Cardiovascular: regular rhythm and regular rate Abdomen: non distended Skin: no rashes, lesions, or ulcers noted Psychiatric: normal judgement and insight, normal mood, and normal affect NEUROLOGIC EXAMINATION: Mental Status:alert, oriented to time, place, person, normal recent memory, normal remote memory, normal attention span, normal concentration, normal language and normal fund of knowledge Cranial Nerves: CN 2 - right superior quadrantanopsia equal, reactive to light CN 3, 4, 6 - extra-ocular movements intact and no nystagmus CN 5 - facial sensation intact CN 7 - no facial asymmetry CN 8 - intact hearing CN 9, 10 - palate symmetric, normal gag CN 11 - good shoulder shrug CN 12 - tongue midline MOTOR: Strength was at least antigravity throughout, Pronator drift was absent and There were no abnormal movements SENSATION: intact and symmetric to pinprick, light touch, vibration and joint position GAIT: stable, no ataxia and can perform tandem walking COORDINATION: no ataxia with finger to nose testing and heel to arreola testing REFLEXES: cannot assess over telemedicine NIH Stroke Scale: 1a. Level of Consciousness: alert = 0 1b. LOC Questions: (month, age): both correct = 0 1c. LOC Commands (open and close eyes, make fist and let go using non-paretic hand): obeys both correctly = 0 2. Best Gaze (eyes open and patient follows examiner's finger or face): normal = 0 3. Visual (visual threat or finger counting in each quadrant): RUpper visual field cut? = 1 4. Facial Palsy (show teeth, raise eye brows and squeeze eyes shut, or grimace symmetry in a comatose patient): normal = 0 5a. Motor Arm (extend arm (palms down) to 90 degrees and score drift/movement (10 seconds) - Left: no drift = 0 5b. Motor Arm: (extend arm (palms down) to 90 degrees and score drift/movement (10 seconds) - Right: no drift = 0 6a. Motor Leg (elevate leg 30 degrees and score drift/ movement (5 seconds) - Left: no drift = 0 6b. Motor Leg (elevate leg 30 degrees and score drift/ movement (5 seconds) - Right: no drift = 0 7. Limb Ataxia (finger to nose, heel down arreola): absent = 0 8. Sensory (pin prick to face, arm, trunk and leg, compare side to side): normal = 0 9. Best Language: no aphasia = 0 10. Dysarthria (evaluate speech clarity by patient repeating listed words): normal articulation = 0 11. Extinction and Inattention: no neglect = 0 Total: 1 Results & Data Vital Signs (Past 12 Hours) Vital Signs Temp Pulse Pulse Resp BP BP Pulse Ox 05/13/25 16:16 36.9 C 65 20 129/61 100 05/13/25 15:46 37 C 90 20 159/66 H 99 05/13/25 15:18 37 C 70 20 149/66 H 99 05/13/25 15:16 37 C 73 20 129/66 99 05/13/25 15:03 37 C 73 18 129/66 99 05/13/25 15:02 36.8 C 66 18 118/46 L 100 05/13/25 14:46 36.9 C 70 18 112/56 L 99 05/13/25 10:50 36.7 C 68 21 112/56 L 98 05/13/25 07:11 36.6 C 77 18 127/69 98 O2 Del Method O2 Flow Rate 05/13/25 16:16 2 05/13/25 15:46 05/13/25 15:18 2 05/13/25 15:16 2 05/13/25 15:03 2 05/13/25 15:02 2 05/13/25 14:46 2 05/13/25 10:50 Nasal Cannula 2 05/13/25 07:11 Nasal Cannula 2 Laboratory Results Laboratory Results - last 24 hr 05/12/25 05/12/25 05/12/25 10:26 10:26 10:26 WBC RBC Hgb Hct MCV MCH MCHC RDW Std Deviation RDW Coeff of Violetta Plt Count MPV Polychromasia Anisocytosis Ovalocytes Sodium Potassium Chloride Carbon Dioxide Anion Gap BUN Creatinine Est Cr Clr Drug Dosing eGFR BUN/Creatinine Ratio Glucose POC Glucose Estimat Average Glucose Hemoglobin A1c Calcium Phosphorus Magnesium Total Bilirubin AST ALT Alkaline Phosphatase Total Protein Albumin Globulin Albumin/Globulin Ratio Blood Type O Positive Antibody Screen POSITIVE A Antibody Identification Auto Benavidez Agglutinin Anti-C Anti-V Antibody ID Comment Direct Antiglob Test ADDY (IgG-AHG) ADDY, Polyspecific ADDY C3b, C3d 5 Min Crossmatch 05/12/25 05/12/25 05/12/25 10:26 15:37 16:05 WBC RBC Hgb 6.2 L* Hct 19.6 L* MCV MCH MCHC RDW Std Deviation RDW Coeff of Violetta Plt Count MPV Polychromasia Anisocytosis Ovalocytes Sodium Cancelled Potassium Cancelled Chloride Cancelled Carbon Dioxide Cancelled Anion Gap Cancelled BUN Cancelled Creatinine Cancelled Est Cr Clr Drug Dosing Cancelled eGFR Cancelled BUN/Creatinine Ratio Cancelled Glucose Cancelled POC Glucose Estimat Average Glucose Hemoglobin A1c Calcium Cancelled Phosphorus Magnesium Total Bilirubin AST ALT Alkaline Phosphatase Total Protein Albumin Globulin Albumin/Globulin Ratio Blood Type Antibody Screen Antibody Identification VS Antibody ID Comment TNP Direct Antiglob Test Positive A ADDY (IgG-AHG) 2+ A ADDY, Polyspecific 2+ A ADDY C3b, C3d 5 Min Neg Crossmatch See Detail 05/12/25 05/12/25 05/12/25 17:38 20:17 22:56 WBC RBC Hgb 6.4 L* Hct 19.8 L* MCV MCH MCHC RDW Std Deviation RDW Coeff of Violetta Plt Count MPV Polychromasia Anisocytosis Ovalocytes Sodium 136 Potassium 5.3 H Chloride 112 H Carbon Dioxide 19 L Anion Gap 5 BUN 66 H Creatinine 2.13 H Est Cr Clr Drug Dosing 27.2 eGFR 31.87 BUN/Creatinine Ratio 31.0 H Glucose 151 H POC Glucose 252 H Estimat Average Glucose Hemoglobin A1c Calcium 9.1 Phosphorus Magnesium Total Bilirubin AST ALT Alkaline Phosphatase Total Protein Albumin Globulin Albumin/Globulin Ratio Blood Type Antibody Screen Antibody Identification Antibody ID Comment Direct Antiglob Test ADDY (IgG-AHG) ADDY, Polyspecific ADDY C3b, C3d 5 Min Crossmatch 05/13/25 05/13/25 05/13/25 04:52 07:57 11:58 WBC 3.61 L RBC 2.21 L Hgb 7.0 L Hct 21.9 L MCV 99.1 MCH 31.7 MCHC 32.0 RDW Std Deviation 73.9 H RDW Coeff of Violetta 20.8 H Plt Count 62 L MPV 11.3 Polychromasia 1+ Anisocytosis Present Ovalocytes 1+ Sodium 138 Potassium 5.6 H Chloride 114 H Carbon Dioxide 20 L Anion Gap 4 BUN 68 H Creatinine 2.05 H Est Cr Clr Drug Dosing 28.6 eGFR 33.37 BUN/Creatinine Ratio 33.2 H Glucose 61 L POC Glucose 74 126 H Estimat Average Glucose 120 Hemoglobin A1c 5.8 H Calcium 8.9 Phosphorus 4.7 Magnesium 1.6 L Total Bilirubin 1.5 H AST 58 H ALT 34 Alkaline Phosphatase 384 H Total Protein 7.0 Albumin 2.5 L Globulin 4.5 H Albumin/Globulin Ratio 0.6 L Blood Type Antibody Screen Antibody Identification Antibody ID Comment Direct Antiglob Test ADDY (IgG-AHG) ADDY, Polyspecific ADDY C3b, C3d 5 Min Crossmatch 05/13/25 12:52 WBC RBC Hgb 6.3 L* Hct 19.9 L* MCV MCH MCHC RDW Std Deviation RDW Coeff of Violetta Plt Count MPV Polychromasia Anisocytosis Ovalocytes Sodium Potassium Chloride Carbon Dioxide Anion Gap BUN Creatinine Est Cr Clr Drug Dosing eGFR BUN/Creatinine Ratio Glucose POC Glucose Estimat Average Glucose Hemoglobin A1c Calcium Phosphorus Magnesium Total Bilirubin AST ALT Alkaline Phosphatase Total Protein Albumin Globulin Albumin/Globulin Ratio Blood Type Antibody Screen Antibody Identification Antibody ID Comment Direct Antiglob Test ADDY (IgG-AHG) ADDY, Polyspecific ADDY C3b, C3d 5 Min Crossmatch Diagnostic Findings Laboratory Results - last 24 hr 05/12/25 05/12/25 05/12/25 10:26 10:26 10:26 WBC RBC Hgb Hct MCV MCH MCHC RDW Std Deviation RDW Coeff of Violetta Plt Count MPV Polychromasia Anisocytosis Ovalocytes Sodium Potassium Chloride Carbon Dioxide Anion Gap BUN Creatinine Est Cr Clr Drug Dosing eGFR BUN/Creatinine Ratio Glucose POC Glucose Estimat Average Glucose Hemoglobin A1c Calcium Phosphorus Magnesium Total Bilirubin AST ALT Alkaline Phosphatase Total Protein Albumin Globulin Albumin/Globulin Ratio Blood Type O Positive Antibody Screen POSITIVE A Antibody Identification Auto Benavidez Agglutinin Anti-C Anti-V Antibody ID Comment Direct Antiglob Test ADDY (IgG-AHG) ADDY, Polyspecific ADDY C3b, C3d 5 Min Crossmatch 05/12/25 05/12/25 05/12/25 10:26 17:38 20:17 WBC RBC Hgb Hct MCV MCH MCHC RDW Std Deviation RDW Coeff of Violetta Plt Count MPV Polychromasia Anisocytosis Ovalocytes Sodium 136 Potassium 5.3 H Chloride 112 H Carbon Dioxide 19 L Anion Gap 5 BUN 66 H Creatinine 2.13 H Est Cr Clr Drug Dosing 27.2 eGFR 31.87 BUN/Creatinine Ratio 31.0 H Glucose 151 H POC Glucose 252 H Estimat Average Glucose Hemoglobin A1c Calcium 9.1 Phosphorus Magnesium Total Bilirubin AST ALT Alkaline Phosphatase Total Protein Albumin Globulin Albumin/Globulin Ratio Blood Type Antibody Screen Antibody Identification VS Antibody ID Comment TNP Direct Antiglob Test Positive A ADDY (IgG-AHG) 2+ A ADDY, Polyspecific 2+ A ADDY C3b, C3d 5 Min Neg Crossmatch See Detail 05/12/25 05/13/25 05/13/25 22:56 04:52 07:57 WBC 3.61 L RBC 2.21 L Hgb 6.4 L* 7.0 L Hct 19.8 L* 21.9 L MCV 99.1 MCH 31.7 MCHC 32.0 RDW Std Deviation 73.9 H RDW Coeff of Violetta 20.8 H Plt Count 62 L MPV 11.3 Polychromasia 1+ Anisocytosis Present Ovalocytes 1+ Sodium 138 Potassium 5.6 H Chloride 114 H Carbon Dioxide 20 L Anion Gap 4 BUN 68 H Creatinine 2.05 H Est Cr Clr Drug Dosing 28.6 eGFR 33.37 BUN/Creatinine Ratio 33.2 H Glucose 61 L POC Glucose 74 Estimat Average Glucose 120 Hemoglobin A1c 5.8 H Calcium 8.9 Phosphorus 4.7 Magnesium 1.6 L Total Bilirubin 1.5 H AST 58 H ALT 34 Alkaline Phosphatase 384 H Total Protein 7.0 Albumin 2.5 L Globulin 4.5 H Albumin/Globulin Ratio 0.6 L Blood Type Antibody Screen Antibody Identification Antibody ID Comment Direct Antiglob Test ADDY (IgG-AHG) ADDY, Polyspecific ADDY C3b, C3d 5 Min Crossmatch 05/13/25 05/13/25 05/13/25 11:58 12:52 16:58 WBC RBC Hgb 6.3 L* Hct 19.9 L* MCV MCH MCHC RDW Std Deviation RDW Coeff of Violetta Plt Count MPV Polychromasia Anisocytosis Ovalocytes Sodium Potassium Chloride Carbon Dioxide Anion Gap BUN Creatinine Est Cr Clr Drug Dosing eGFR BUN/Creatinine Ratio Glucose POC Glucose 126 H 115 H Estimat Average Glucose Hemoglobin A1c Calcium Phosphorus Magnesium Total Bilirubin AST ALT Alkaline Phosphatase Total Protein Albumin Globulin Albumin/Globulin Ratio Blood Type Antibody Screen Antibody Identification Antibody ID Comment Direct Antiglob Test ADDY (IgG-AHG) ADDY, Polyspecific ADDY C3b, C3d 5 Min Crossmatch Medications Administered Home Medications Medication Instructions Recorded Confirmed Last Taken allopurinol 100 mg tablet 200 mg PO QAM 05/16/20 05/12/25 05/14/24 bcwaetnlwjmf-aih-pyetz acid-vit 1 tab PO QAM 05/17/23 05/12/25 05/15/24 K-lycop 400 mcg-20 mcg-370 mcg tablet (Men's 50 Plus Multivitamin) duloxetine 30 mg capsule,delayed 30 mg PO QAM 02/02/24 05/12/25 05/15/24 release pantoprazole 40 mg tablet,delayed 40 mg PO BID 02/02/24 05/12/25 05/15/24 release rifaximin 550 mg tablet (Xifaxan) 550 mg PO BID 02/02/24 05/12/25 05/15/24 finasteride 5 mg tablet 5 mg PO QAM 03/20/24 05/12/25 05/15/24 insulin glargine 100 unit/mL (3 38 unit subcut QAM 05/20/24 05/12/25 Unknown mL) subcutaneous pen (Lantus Solostar U-100 Insulin) oxybutynin chloride 5 mg tablet 5 mg PO TID PRN Bladder Spasms 05/20/24 05/12/25 Unknown solifenacin 5 mg tablet 5 mg PO QAM 05/20/24 05/12/25 Unknown zinc gluconate 50 mg tablet 50 mg PO QAM ##0 05/20/24 05/12/25 Unknown furosemide 40 mg tablet 40 mg PO QAM #30 tabs 05/30/24 05/12/25 Unknown spironolactone 100 mg tablet 100 mg PO QAM #30 tabs 05/30/24 05/12/25 Unknown cholecalciferol (vitamin D3) 25 50 mcg PO QAM 05/12/25 05/12/25 Unknown mcg (1,000 unit) tablet ciprofloxacin HCl 500 mg tablet 500 mg PO QAM 05/12/25 05/12/25 Unknown ferrous sulfate 325 mg (65 mg 325 mg PO BID 05/12/25 05/12/25 Unknown iron) tablet furosemide 20 mg tablet 20 mg PO HS 05/12/25 05/12/25 Unknown insulin aspart U-100 100 unit/mL 1 sliding scale dose subcut 05/12/25 05/12/25 Unknown subcutaneous solution USEASDIRECTD lactulose 10 gram/15 mL oral 20 g PO BID 05/12/25 05/12/25 Unknown solution levocarnitine 1 gram/10 mL oral 1 g PO BID 05/12/25 05/12/25 Unknown solution Active Medications Generic Name Dose Route Start Last Admin Trade Name Freq PRN Reason Stop Dose Admin Allopurinol 200 mg 05/13/25 09:00 05/13/25 10:20 Allopurinol 100 Mg Tab PO 06/12/25 08:59 Not Given QAM JODI Duloxetine HCl 30 mg 05/13/25 09:00 05/13/25 10:20 Duloxetine Hcl 30 Mg Cap PO 06/12/25 08:59 Not Given QAM JODI Ferrous Sulfate 325 mg 05/12/25 21:00 05/13/25 10:20 Ferrous Sulfate 325 Mg Tab PO 06/11/25 20:59 Not Given BID JODI Finasteride 5 mg 05/13/25 09:00 05/13/25 12:24 Finasteride 5 Mg Tab PO 06/12/25 08:59 5 mg QAM JODI Administration Ceftriaxone Sodium 2,000 mg in 50 mls @ 100 mls/hr 05/13/25 15:00 05/13/25 15:39 Rocephin IV 05/15/25 14:59 Infused Q24H JODI Infusion Daptomycin 400 mg/ Syringe 8 mls @ 3.75 mls/min 05/13/25 12:30 05/13/25 13:00 IV 05/23/25 12:29 3.75 mls/min Q48H JODI Administration Protocol Insulin Aspart 0 units 05/12/25 17:00 05/13/25 12:24 Insulin Aspart Per Unit Charge SC 06/11/25 16:59 Not Given ACHS JODI Lactulose 20 gm 05/12/25 21:00 05/13/25 10:20 Lactulose Syrup 10 Gm/15 Ml Btl 960 Ml PO 06/11/25 20:59 Not Given BID JODI Levocarnitine 1,000 mg 05/12/25 21:00 05/13/25 10:20 Levocarnitine (With Sugar) 100 Mg/Ml Udp PO 06/11/25 20:59 Not Given BID JODI Multivitamins/Minerals 1 tab 05/13/25 09:00 05/13/25 10:20 Cerovite Adv Formula Tab PO 06/12/25 08:59 Not Given QAM JODI Oxybutynin Chloride 5 mg 05/12/25 16:30 05/13/25 15:47 Oxybutynin Chloride 5 Mg Tab PO 06/11/25 16:29 5 mg TID PRN Administration Bladder Spasms Oxybutynin Chloride 5 mg 05/13/25 09:00 05/13/25 12:23 Oxybutynin Chloride Xl 5 Mg Tabcr PO 06/12/25 08:59 5 mg QAM JODI Administration Pantoprazole Sodium 40 mg 05/12/25 21:00 05/13/25 10:32 Pantoprazole 40 Mg Tab PO 06/11/25 20:59 Not Given BID JODI Rifaximin 550 mg 05/12/25 21:00 05/13/25 10:32 Rifaximin 550 Mg Tablet PO 06/11/25 20:59 Not Given BID JODI Sodium Zirconium Cyclosilicate 10 gm 05/13/25 14:00 05/13/25 14:49 Sodium Zirconium Cyclosilicate 10 Gm Packet PO 05/15/25 09:01 10 gm TID JODI Administration ECG Additional Comments: sinus bradycardia with premature atria contractions
[2025-05-13 19:08] LABS: Hemoglobin 7.4 g/dl (14.0-18.0)
[2025-05-13 19:23] LABS: BUN Creatinine Ratio 31.6 (10-20); Calcium 8.7 mg/dl (8.6-10.3); Creatinine Clr Calc Pharmacy 27.6 ml/min; Potassium 5.6 mmol/L (3.5-5.1)
[2025-05-13] MEDS: LANTUS PER UNIT CHARGE SC SCH (21:56)
[2025-05-13] MEDS: PHENAZOPYRIDINE HCL 200 MG TAB PO PRN (22:08)
[2025-05-13] MEDS: MAGNESIUM CHLORIDE W/CALCIUM 64MG DELAYED REL TAB PO SCH (22:31)
--- NOTE | 2025-05-14 01:18 | Magnetic Resonance Report ---
Exam(s): MRA HEAD Without Contrast EXAM: MR Angiography Head Without Intravenous Contrast CLINICAL HISTORY: Reason for exam: Change in vision. TECHNIQUE: Magnetic resonance angiography images of the head without intravenous contrast. COMPARISON: No relevant prior studies available. FINDINGS: Right internal carotid artery: No acute findings. Intracranial segment is patent with no significant stenosis. No aneurysm. Right anterior cerebral artery: Unremarkable. No occlusion or significant stenosis. No aneurysm. Right middle cerebral artery: Unremarkable. No occlusion or significant stenosis. No aneurysm. Right posterior cerebral artery: Unremarkable. No occlusion or significant stenosis. No aneurysm. Right vertebral artery: Unremarkable as visualized. Left internal carotid artery: No acute findings. Intracranial segment is patent with no significant stenosis. No aneurysm. Left anterior cerebral artery: Unremarkable. No occlusion or significant stenosis. No aneurysm. Left middle cerebral artery: Unremarkable. No occlusion or significant stenosis. No aneurysm. Left posterior cerebral artery: Unremarkable. No occlusion or significant stenosis. No aneurysm. Left vertebral artery: Unremarkable as visualized. Basilar artery: Unremarkable. No occlusion or significant stenosis. No aneurysm. IMPRESSION: Negative MRA of the brain. Electronically signed by: Radha Blandon MD 05/14/25 01:18 AM
--- NOTE | 2025-05-14 01:30 | Magnetic Resonance Report ---
Exam(s): MRI HEAD Without Contrast EXAM: MR Head Without Intravenous Contrast CLINICAL HISTORY: Reason for exam: Blurry Vision. TECHNIQUE: Magnetic resonance images of the head/brain without intravenous contrast in multiple planes. COMPARISON: Prior head CT from May 12. FINDINGS: Brain: Mild nonspecific white matter changes. There is a tiny remote ischemic injury of the right cerebellum. There is a dilated perivascular space or remote ischemic injury of the left capsule. There is a right subdural fluid collection very 12.5 mm in maximal diameter causing 3.5 mm of midline shift to the left. No mass. No hemorrhage. No acute infarct. The flow voids at the base the brain are intact. There is hemosiderin staining within the left temporal lobe sulci. Ventricles: Mild ventriculomegaly. Bones/joints: There is loss of normal T1 bright bone marrow signal within the proximal cervical spine. No acute fracture. Sinuses: Unremarkable as visualized. No acute sinusitis. Mastoid air cells: Unremarkable as visualized. No mastoid effusion. Orbits: Bilateral lens replacements. IMPRESSION: No evidence of acute intracranial pathology. There is a right subdural fluid collection measuring 12.5 mm in maximal diameter causing 3.5 mm of midline shift to the left. Electronically signed by: Radha Blandon MD 05/14/25 01:29 AM
--- NOTE | 2025-05-14 01:42 | Magnetic Resonance Report ---
Exam(s): MRA NECK Without Contrast EXAM: MR Angiography Neck Without Intravenous Contrast CLINICAL HISTORY: Reason for exam: Change in vision. TECHNIQUE: Magnetic resonance angiography images of the neck without intravenous contrast. COMPARISON: No relevant prior studies available. FINDINGS: Right common carotid artery: Unremarkable. No significant stenosis. No dissection or occlusion. Right internal carotid artery: Unremarkable. Extracranial segment is patent with no significant stenosis. No dissection or occlusion. Right external carotid artery: Unremarkable. No occlusion. Right vertebral artery: Unremarkable. No significant stenosis. No dissection or occlusion. Left common carotid artery: Unremarkable. No significant stenosis. No dissection or occlusion. Left internal carotid artery: Unremarkable. Extracranial segment is patent with no significant stenosis. No dissection or occlusion. Left external carotid artery: Unremarkable. No occlusion. Left vertebral artery: Unremarkable. No significant stenosis. No dissection or occlusion. Soft tissues: There is a critical spinal canal stenosis at C5-6. CAROTID STENOSIS REFERENCE USING NASCET CRITERIA: % ICA stenosis = (1 - narrowest ICA diameter/diameter of distal cervical ICA) x 100. Mild - <50% stenosis. Moderate - 50-69% stenosis. Severe - 70-94% stenosis. Near occlusion - 95-99% stenosis. Occluded - 100% stenosis. IMPRESSION: Negative MRA of the neck. There is a critical spinal canal stenosis at C5-6. Recommend MRI cervical spine to evaluate for myelopathy. Communications: Verify Receipt Electronically signed by: Radha Blandon MD 05/14/25 01:42 AM
[2025-05-14 05:34] LABS: BUN Creatinine Ratio 31.6 (10-20); Calcium 8.6 mg/dl (8.6-10.3); Creatinine Clr Calc Pharmacy 27.6 ml/min; Potassium 5.1 mmol/L (3.5-5.1)
[2025-05-14 06:45] LABS: Hematocrit (blood only) 20.8 % (42.0-52.0); Hemoglobin 6.7 g/dl (14.0-18.0); Mean Corpuscular Hgb Conc 32.2 g/dL (32.0-36.0); Mean Corpuscular Volume 96.3 fL (80.0-100.0); Mean Platelet Volume 10.6 fL (9.4-12.4); Platelet Count 65 K/uL (130-400); RDW Coefficient of Variation 20.5 % (11.5-14.5); RDW Standard Deviation 71.1 fL (36.4-46.3); Red Blood Count 2.16 M/uL (4.70-6.10); White Blood Count 3.65 K/ul (4.8-10.8)
[2025-05-14] MEDS ORDERED: SODIUM CHLORIDE 0.9% 100 ML IV PRN (06:47)
[2025-05-14] MEDS: LANTUS PER UNIT CHARGE SC SCH ×2 (09:19→21:06)
[2025-05-14] MEDS: ACETAMINOPHEN 325 MG TAB PO ONE (09:20)
--- NOTE | 2025-05-14 10:19 | Nephrology Progress Note ---
Date of Service May 14, 2025 Assessment & Plan Admission and Anticipated Discharge Date Admission Date: May 12, 2025 Subjective Assessment & Plan (1) Acute kidney injury superimposed on stage 3a chronic kidney disease: He has many comorbid diseases and has very poor baseline health currently and has lot of recent health issues/Admission--bleeding, infection and so on with background decompensated FOFANA cirrhosis. more recent creat is high 1's and low 2's but few months back had normal creat. Creat is currently trending down--cause likely from big drop in hgb to 6.2 causing hemodynamic LUCRETIA--he is very susceptible to this. Creat was 2.25 and now is 2.12. NO workup needed for LUCRETIA. has ascites but not much edema. Continue Kan to avoid obstruction. NO need of Iv fluid. (2) Gross hematuria: with low hgb and still has gross hematuria. recurrent issue. hgb still only 6.7. ? PRBC. Urine culture prelim enterococcus. on ABx. urology note reviewed. (3) Hyperkalemia: K was 5.7 but is still 5.6. Continue Lokelma. S/p One dose of Lasix yesterday. Can give lasix 40 mg iv for renal K loss if K gets higher than 5.5 S--hgb still very low. Gross hematuria present ROS---very sluggish and sleepy and unable to get much history from patient. Physical Exam Physical Exam: General: Elderly, chronically ill-appearing. Sleepy and sluggish. HEENT: MM dry.neck Supple Respiratory: Normal respiratory effort, lungs clear to auscultation bilaterally. Cardiovascular: Regular rate and rhythm, normal peripheral pulses. No edema. Abdomen/GI: Ascites ++ Results & Data Vital Signs (Past 12 Hours) Vital Signs Temp Pulse Pulse Resp BP BP Pulse Ox 05/14/25 10:07 36.4 C L 59 L 18 133/62 05/14/25 08:00 60 05/14/25 08:00 05/14/25 07:16 36.9 C 67 18 132/52 L 97 05/14/25 02:59 36.7 C 63 18 109/53 L 97 05/14/25 01:07 63 05/13/25 23:02 36.5 C 62 17 138/55 L 99 05/13/25 22:58 O2 Del Method O2 Flow Rate 05/14/25 10:07 05/14/25 08:00 05/14/25 08:00 Nasal Cannula 2 05/14/25 07:16 Oxymask 2 05/14/25 02:59 Nasal Cannula 2 05/14/25 01:07 05/13/25 23:02 Nasal Cannula 2 05/13/25 22:58 Nasal Cannula 2
--- NOTE | 2025-05-14 12:54 | Urology Progress Note ---
<Statement entered by Zane Salas MD - 05/14/25 13:06> 74-year-old male with recurrent gross hematuria thought to be related to radiation cystitis. As long as he is emptying his bladder (either spontaneously or via catheter) we will hold off surgical intervention. If possible, I would defer further management options to his primary urologist, however he may benefit from urinary diversion with nephrostomy tube placement. This problem has been going on long enough that it may be worth considering hyperbaric oxygen therapy or potentially formalin treatment of the bladder Date of Service May 14, 2025 Assessment & Plan (1) Gross hematuria: Plan 74yo/M with a history of prostate cancer and recurrent hematuria status post radiation admitted with gross hematuria, anemia, LUCRETIA on CKD. Urology consulted for hematuria. CT abdomen pelvis- No hydronephrosis, Small amount of gas in the nondistended urinary bladder, Small amount of patchy density dependently in the urinary bladder, debris versus clot. Patient afebrile with stable vitals at present Labscreatinine 2.12, WBCs 3.65, hemoglobin 6.7 Urine culture prelim enterococcus. Kan catheter currently draining maroon colored urine. I offered to hand irrigate his catheter at the time of my exam today, but patient declined. Maintain Kan catheter and monitor urine output, okay to hand irrigate as needed for clots, retention, suprapubic pain. Continue antibiotics and tailor per culture sensitivities. Patient has ongoing hematuria likely from radiation cystitis. Unfortunately, fulguration/cauterization typically only provides temporary relief. Hyperbaric oxygen treatment is likely the only option other than consideration of urinary diversion with nephrostomy tubes. Would recommend close follow-up with his primary urologist (Dr. Peraza of [facility] urology) for continued care and management. No acute intervention warranted at this time. Urology will follow peripherally. Admission and Anticipated Discharge Date Admission Date: May 12, 2025 Subjective Pt seen at bedside today Awake and resting in bed on arrival No acute distress Kan intact and draining maroon colored urine Pt reports pain at cath insertion site Review of Systems Constitutional: as per Subjective / HPI Genitourinary: + as per Subjective / HPI Physical Exam Constitutional: no acute distress Chronically ill-appearing Respiratory: no respiratory distress and no labored breathing Neurologic: awake Psychiatric: Orientation: alert, oriented to person and cooperative Genitourinary: Kan intact Results & Data Vital Signs (Past 12 Hours) Vital Signs Temp Pulse Pulse Pulse Resp BP BP 05/14/25 12:01 65 137/56 L 05/14/25 10:57 36.6 C 62 138/49 L 05/14/25 10:35 36.9 C 66 18 141/53 H 05/14/25 10:21 36.5 C 64 18 126/51 L 05/14/25 10:07 36.4 C L 59 L 18 133/62 05/14/25 08:00 60 05/14/25 08:00 05/14/25 07:16 36.9 C 67 18 132/52 L 05/14/25 02:59 36.7 C 63 18 109/53 L 05/14/25 01:07 63 Pulse Ox O2 Del Method O2 Flow Rate 05/14/25 12:01 98 Nasal Cannula 2 05/14/25 10:57 99 Nasal Cannula 2 05/14/25 10:35 99 Nasal Cannula 2 05/14/25 10:21 05/14/25 10:07 05/14/25 08:00 05/14/25 08:00 Nasal Cannula 2 05/14/25 07:16 97 Oxymask 2 05/14/25 02:59 97 Nasal Cannula 2 05/14/25 01:07 PG Care Time/CCT Total # of Minutes Spent Total Time Spent with Patient: Total time spent is greater than 50% in coordination of care (as documented) at patient's floor/unit and/or counseling patient: Coding Level of Care Code 96925 SUB INP/OBS CARE 2/35MIN Diagnoses Gross hematuria R31.0
--- NOTE | 2025-05-14 13:48 | Pharmacy Report ---
Pharmacy Glycemic Short Note 2 - Date of Service May 14, 2025 - Glycemic Short BSG Results (Last 24 hours): 05/13/25 05/13/25 05/13/25 16:58 18:51 20:05 Glucose 164 H POC Glucose 115 H 218 H 05/14/25 05/14/25 05/14/25 04:25 07:32 11:39 Glucose 144 H POC Glucose 144 H 239 H OUTPATIENT ANTIDIABETIC REGIMEN: * Lantus 38 units qAM, novolog SSI HbA1c: 5.8% (05/13/25) ASSESSMENT: 05/14/25: * Blood sugars labile yesterday, ranging 61-218 mg/dL * Will plan on tightening Novolog given upward trend throughout the day * Will utilize past inpatient glycemic data to guide basal 05/13/25: * 74 year old admitted with gross hematuria. Type 2 diabetic - pharmacy consulted for glycemic management. Patient given one time dose of Lantus last evening as likely did not receive his AM dose that morning per reports. RN reporting patient has been confused, not eating much. BSGs this AM lower 61 mg/d, 74 mg/dL - will hold AM basal but have scale on for this evening with r educed dosing. PLAN FOR INPATIENT GLYCEMIC CONTROL: * Basal insulin * Lantus 10 units SC daily * Lantus 0-5-8 units SC HS * Bolus insulin * NovoLog per scale ACHS or Q6hrs while NPO * Goal Range: Low 110 mg/dL - High 160 mg/dL * Correction Factor: 30 mg/dL/unit * Nutritional / Prandial insulin per carb ratio of 1 unit per 10 grams CHO consumed
[2025-05-14 14:55] LABS: Hematocrit (blood only) 24.5 % (42.0-52.0); Hemoglobin 8.2 g/dl (14.0-18.0)
--- NOTE | 2025-05-14 15:16 | Hospitalist Progress Note ---
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: Plan Patient is a medically complex 74-year-old male with past medical history significant for decompensated FOFANA cirrhosis s/p TIPS with esophageal varices, recurrent ascites with SBP, HCC [on supportive treatment only/not candidate for cancer directed therapy due to age and comorbidities per outpatient oncology documentation], thrombocytopenia, chronic anemia, gastric antral vascular ectas ia, hepatic encephalopathy, non-occlusive portal vein thrombosis, prostate cancer s/p radiotherapy on chronic Lupron suppression c/b radiation cystitis with recurrent hematuria, CKD stage IIIa, insulin-requiring DMII and other problems listed below who presented to the ED via EMS from [facility] with gross hematuria. Acute blood loss anemia likely due to recurrent hematuria secondary to chronic radiation cystitis --CT ABD:Small amount of gas in the nondistended urinary bladder. Small amount of patchy density dependently in the urinary bladder, debris versus clot. Stable findings of cirrhosis, portal hypertension, and small amount of ascites. Increased size of small right pleural effusion. --S/P 2 units PRBCs Monitor and transfuse as needed H&H Continue Kan catheter for now Appreciate urology input Avoid anticoagulation Bladder scan as needed Urology following: Recommends no intervention at this time. Recommends to follow-up with [facility] urology Dr. Peraza upon discharge Complicated Urinary tract infection--POA H/O prostate cancer S/P radiation, Lupron Urine culture: Preliminary growing Enterococcus faecium, Mary Empirically started on daptomycin Will consider ID evaluation if needed Continue Kan catheter for now Urology following Acute kidney injury on CKD stage IIIa Baseline 1.8-2.0 Creatinine 2.1 today Monitor renal function Avoid nephrotoxic agents as able Appreciate nephrology input Hyperkalemia Likely due to LUCRETIA continue to hold Aldactone Continue Lokelma Monitor potassium levels Received a dose of IV Lasix Appreciate nephrology input Potassium levels normalized today Hypomagnesemia Replete and monitor Abnormal Head CT Transient blurry vision Compression of brain without herniation --CT head:There are shifting subdural homogeneously low attenuating collections, which is now increased on the right, and the prior left-sided subdural collection has resolved. There is now approximately 3 mm of leftward midline shift. These may represent chronic subdural hematomas or hygromas. -Recent ground-level fall on 04/01/25 leading to SDH Repeat head CT at [facility] [place] --> resolution of previously described subarachnoid and intraventricular hemorrhage S/p course of Keppra while at [facility], no surgical intervention required --MRI Brain:No evidence of acute intracranial pathology. There is a right subdural fluid collection measuring 12.5 mm in maximal diameter causing 3.5 mm of midline shift to the left. --MRA Head:Negative MRA of the brain. --Neck MRA:Negative MRA of the neck. Neuro Checks Appreciate neurology input: No intervention currently needed, monitor Cervical stenosis at C5-C6 MRI Neck pending Consider orthopedic spine evaluation Decompensated FOFANA cirrhosis s/p TIPs w/ esophageal varices Recurrent ascites, history of SBP Waxing/waning mentation level in ED --> ? possible baseline Recently completed ABX course last month during admission at [facility] for SBP -Last paracentesis done on 05/05 at [facility] -Ascitic fluid cx grew Serratia marcescens susceptible to cefepime/Rocephin/cipro/gent/Bactrim -Was started on prophylactic cipro for SBP prevention as directed by hepatology CTAP: stable findings of cirrhosis, portal hypertension, and small amount of ascites. --Patient currently requiring weekly paracentesis per family: Advised to follow- up with hepatology as outpatient Hold prophylactic cipro for now while on IV Rocephin to cover if SBP present however have low suspicion Continue home lactulose, Xifaxan Resume home diuretics as able Monitor volume status Will need IR for paracentesis as able Increased size of small R pleural effusion On 2L NC, resp status stable Continue to monitor for now Received IV Lasix Insulin-dependent DM II Hgb A1c 9.2% 1mo ago HbA1c 5.8 currently Continue insulin per protocol Appreciate glycemic pharm assistance Antineoplastic chemotherapy induced pancytopenia UDAY Continue iron supplementation Monitor CBC Gout Continue allopurinol GERD Continue PPI DVT Px: SCDs/TEDs Code Status: DNR/DNI Disposition: PT OT prior to discharge Admission and Anticipated Discharge Date Admission Date: May 12, 2025 Subjective Patient is seen and examined at bedside Reports having generalized body ache Continues to have hematuria, requires 1 unit PRBC transfusion today No recurrence of blurry vision Discussed with patient's son over the phone Also discussed with neurology and nephrology today Denies any chest pain, dyspnea, abdominal pain Review of Systems Review of Systems: All systems reviewed & are unremarkable except as noted in Subjective Physical Exam Physical Exam: Physical Exam: Vitals signs as noted above General Appearance:Thin, frail, no apparent distress, ill appearing Head: normocephalic, Atraumatic Eyes: normal inspection, EOMI Neck: supple, Trachea midline Respiratory/Chest: Normal breath sounds, CTA, No accessory muscle use Cardiovascular: S1, S2, No murmur Abdomen/GI:Soft, distended, Non tender,+umbilical hernia, Bowel sounds present Extremities/Musculoskeletal:normal inspection, Trace edema Neurologic/Psych:AAOX3, grossly no focal neurological deficits Skin: normal color, warm Results & Data Results & Data Vital Signs (Past 12 Hours) Vital Signs Temp Pulse Pulse Pulse Resp BP BP 05/14/25 13:04 36.6 C 65 16 135/50 L 05/14/25 12:01 65 137/56 L 05/14/25 10:57 36.6 C 62 138/49 L 05/14/25 10:35 36.9 C 66 18 141/53 H 05/14/25 10:21 36.5 C 64 18 126/51 L 05/14/25 10:07 36.4 C L 59 L 18 133/62 05/14/25 08:00 60 05/14/25 08:00 05/14/25 07:16 36.9 C 67 18 132/52 L Pulse Ox O2 Del Method O2 Flow Rate 05/14/25 13:04 05/14/25 12:01 98 Nasal Cannula 2 05/14/25 10:57 99 Nasal Cannula 2 05/14/25 10:35 99 Nasal Cannula 2 05/14/25 10:21 05/14/25 10:07 05/14/25 08:00 05/14/25 08:00 Nasal Cannula 2 05/14/25 07:16 97 Oxymask 2 Laboratory Results Short CBC 05/13/25 05/14/25 05/14/25 Range/Units 18:51 00:06 04:25 WBC 3.65 L (4.8-10.8) K/ul Hgb 7.4 L 7.0 L 6.7 L* (14.0-18.0) g/dl Hct 23.0 L 22.0 L 20.8 L* (42.0-52.0) % Plt Count 65 L (130-400) K/uL 05/14/25 Range/Units 14:37 WBC (4.8-10.8) K/ul Hgb 8.2 L (14.0-18.0) g/dl Hct 24.5 L (42.0-52.0) % Plt Count (130-400) K/uL BMP 05/13/25 05/14/25 18:51 04:25 Sodium 135 L 136 Potassium 5.6 H 5.1 Chloride 111 H 112 H Carbon Dioxide 19 L 20 L BUN 67 H 67 H Creatinine 2.12 H 2.12 H Glucose 164 H 144 H Calcium 8.7 8.6 (1) Hematuria Hematuria type: unspecified type Qualified Code(s): R31.9 - Hematuria, unspecified
[2025-05-14 21:19] LABS: Hemoglobin 8.2 g/dl (14.0-18.0)
[2025-05-15 06:12] LABS: Hematocrit (blood only) 25.5 % (42.0-52.0); Mean Corpuscular Hemoglobin 31.4 pg (25.0-34.0); Mean Corpuscular Hgb Conc 31.4 g/dL (32.0-36.0); Mean Platelet Volume 11.7 fL (9.4-12.4); Platelet Count 61 K/uL (130-400); RDW Coefficient of Variation 18.9 % (11.5-14.5); RDW Standard Deviation 68.1 fL (36.4-46.3); Red Blood Count 2.55 M/uL (4.70-6.10); White Blood Count 2.94 K/ul (4.8-10.8)
[2025-05-15 06:53] LABS: BUN Creatinine Ratio 31.7 (10-20); Calcium 8.6 mg/dl (8.6-10.3); Creatinine Clr Calc Pharmacy 28.9 ml/min; Potassium 4.9 mmol/L (3.5-5.1)
[2025-05-15] MEDS: GADOBUTROL 65ML VIAL IV ONE (06:54)
--- NOTE | 2025-05-15 07:54 | Magnetic Resonance Report ---
EXAM: MR cervical spine wo/w con CLINICAL HISTORY: spinal canal stenosis TECHNIQUE: MRI of the cervical spine was performed with and without contrast. Sequences obtained include sagittal T1-weighted, T2-weighted, STIR (Short Tau Inversion Recovery), and axial T2-weighted sequences. Additional sequences such as gradient echo (GRE) or post-contrast T1-weighted images may have been included based on clinical indication. both obliques made. COMPARISON: Comparison is made with prior imaging studies CT dated 04/01/2025 . FINDINGS: Vertebral Alignment: Straightening of the cervical lordosis suggests muscle spasm. No evidence of fracture or subluxation. Vertebral Bodies and Intervertebral Discs: Cervical spondylitic changes manifested by marginal osteophytes at the opposing vertebral plates and variable degrees of degenerated cervical disks. Degenerative changes involving uncovertebral and facet joints bilaterally at multiple levels, as well as PLL calcifications. Diffuse decreased bone marrow signals in T1/T2 in all cervical spine, could be ostoeportic changes, other possible bone marrow replacement disorders could not be ruled out, further assessment is needed. [id number] analysis: C2-C3: There is a 2.3 mm right posterolateral disc bulge/osseophyte complex causing moderate right neural foraminal stenosis with no spinal canal stenosis. C3-C4: Diffuse disc bulge with superior migration and posterior annular fissure measuring about 2 mm causing moderate bilateral neural foraminal stenosis with no spinal canal compromise. C4-C5: Diffuse disc bulge/osotephyte complex measuring about 3.2 mm causing moderate left and mild right neural foraminal stenosis with no spinal canal compromise. C5-C6: Diffuse disc bulge /osseophyte complex measuring about 4 mm causing moderate spinal canal and bilateral marked neural foraminal stenosis indenting the thecal sac. Ligamenta flava hypertrophy is noted. C6-C7: Diffuse disc bulge /osseophyte complex measuring about 4.3 mm causing mild to moderate spinal canal and bilateral marked neural foraminal stenosis indenting the thecal sac. Ligamenta flava hypertrophy is noted. C7-T1: There is no significant disc pathology. Normal morphology of the ligamentum flava. No arthropathy of the uncovertebral and zygapophyseal joints. No significant spinal canal stenosis. Spinal Cord and Nerve Roots: The spinal cord demonstrates normal signal intensity and caliber. No evidence of cord compression or intradural pathology. Nerve roots appear unremarkable bilaterally. Soft Tissues: Paraspinal soft tissues appear normal without evidence of abnormal signal intensity or mass lesions. Vascular Structures: Normal appearance of the visualized vascular structures. No evidence of aneurysm, dissection, or significant atherosclerosis. Normal enhancement post-contrast. IMPRESSION: 1. Straightening of the cervical lordosis suggests muscle spasm. 2. Cervical spondylitic changes. 3. Multilevel cervical disc bulges and osteophytic complexes, more evident at C5-C6 and C6-C7, causing spinal canal and neural foraminal stenosis as described. 4. Degenerative changes involving uncovertebral and facet joints bilaterally at multiple levels, as well as PLL calcifications. 5. Diffuse decreased bone marrow signals in T1/T2 in all cervical spine, could be osteoportic changes, other possible bone marrow replacement disorders could not be ruled out, further assessment is needed. 6. No significant interval changes given the difference in the modalities. Electronically signed by Ke Hernández 05-15-2025 07:53 AM
[2025-05-15] MEDS: LANTUS PER UNIT CHARGE SC SCH (09:01)
--- NOTE | 2025-05-15 11:43 | Hospitalist Progress Note ---
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: Plan Patient is a medically complex 74-year-old male with past medical history significant for decompensated FOFANA cirrhosis s/p TIPS with esophageal varices, recurrent ascites with SBP, HCC [on supportive treatment only/not candidate for cancer directed therapy due to age and comorbidities per outpatient oncology documentation], thrombocytopenia, chronic anemia, gastric antral vascular ectas ia, hepatic encephalopathy, non-occlusive portal vein thrombosis, prostate cancer s/p radiotherapy on chronic Lupron suppression c/b radiation cystitis with recurrent hematuria, CKD stage IIIa, insulin-requiring DMII and other problems listed below who presented to the ED via EMS from [facility] with gross hematuria. Acute blood loss anemia likely due to recurrent hematuria secondary to chronic radiation cystitis --CT ABD:Small amount of gas in the nondistended urinary bladder. Small amount of patchy density dependently in the urinary bladder, debris versus clot. Stable findings of cirrhosis, portal hypertension, and small amount of ascites. Increased size of small right pleural effusion. --S/P 2 units PRBCs Monitor and transfuse as needed H&H Continue Kan catheter for now Appreciate urology input Avoid anticoagulation Bladder scan as needed Urology following: Recommends no intervention at this time. Recommends to follow-up with [facility] urology Dr. Peraza upon discharge Still having hematuria Hemoglobin 8.0 today We will recheck CBC tomorrow Complicated Urinary tract infection--POA H/O prostate cancer S/P radiation, Lupron Urine culture: Preliminary growing VRE Enterococcus faecium, Mary Continue Daptomycin Will consider ID evaluation if needed Continue Kan catheter for now Urology following Follow-up final cultures Acute kidney injury on CKD stage IIIa Baseline 1.8-2.0 Creatinine 2.0 today Monitor renal function Avoid nephrotoxic agents as able Appreciate nephrology input Hyperkalemia Likely due to LUCRETIA continue to hold Aldactone Completed [facility] Monitor potassium levels Received a dose of IV Lasix Appreciate nephrology input Recheck BMP tomorrow Hypomagnesemia Replete and monitor Abnormal Head CT Transient blurry vision Compression of brain without herniation --CT head:There are shifting subdural homogeneously low attenuating collections, which is now increased on the right, and the prior left-sided subdural collection has resolved. There is now approximately 3 mm of leftward midline shift. These may represent chronic subdural hematomas or hygromas. -Recent ground-level fall on 04/01/25 leading to SDH Repeat head CT at [facility] [place] --> resolution of previously described subarachnoid and intraventricular hemorrhage S/p course of Keppra while at [facility] [place], no surgical intervention required --MRI Brain:No evidence of acute intracranial pathology. There is a right subdural fluid collection measuring 12.5 mm in maximal diameter causing 3.5 mm of midline shift to the left. --MRA Head:Negative MRA of the brain. --Neck MRA:Negative MRA of the neck. Neuro Checks Appreciate neurology input: No intervention currently needed, monitor Cervical stenosis at C5-C6 MRI Neck pending Consider orthopedic spine evaluation Decompensated FOFANA cirrhosis s/p TIPs w/ esophageal varices Recurrent ascites, history of SBP Waxing/waning mentation level in ED --> ? possible baseline Recently completed ABX course last month during admission at [facility] for SBP -Last paracentesis done on 05/05 at [facility] [place] -Ascitic fluid cx grew Serratia marcescens susceptible to cefepime/Rocephin/cipro/gent/Bactrim -Was started on prophylactic cipro for SBP prevention as directed by hepatology CTAP: stable findings of cirrhosis, portal hypertension, and small amount of ascites. --Patient currently requiring weekly paracentesis per family: Advised to follow- up with hepatology as outpatient Hold prophylactic cipro for now while on IV Rocephin to cover if SBP present however have low suspicion Continue home lactulose, Xifaxan Resume home diuretics as able Monitor volume status Will need IR for paracentesis inpatient Vs outpatient-- no urgent need Increased size of small R pleural effusion On 2L NC, resp status stable Continue to monitor for now Received IV Lasix Insulin-dependent DM II Hgb A1c 9.2% 1mo ago HbA1c 5.8 currently Continue insulin per protocol Appreciate glycemic pharm assistance Antineoplastic chemotherapy induced pancytopenia UDAY Continue iron supplementation Monitor CBC Gout Continue allopurinol GERD Continue PPI DVT Px: SCDs/TEDs Re: Hematuria, Anemia Code Status: DNR/DNI Disposition: Rehab as able Admission and Anticipated Discharge Date Admission Date: May 12, 2025 Subjective Patient is seen and examined at bedside Still having hematuria noted on catheter Urine cultures pending Subjectively feels better today Hemoglobin stable Denies any chest pain, dyspnea, nausea, vomiting, abdominal pain Review of Systems Review of Systems: All systems reviewed & are unremarkable except as noted in Subjective Physical Exam Physical Exam: Physical Exam: Vitals signs as noted above General Appearance:Thin, frail, no apparent distress, ill appearing Head: normocephalic, Atraumatic Eyes: normal inspection, EOMI Neck: supple, Trachea midline Respiratory/Chest: Normal breath sounds, CTA, No accessory muscle use Cardiovascular: S1, S2, No murmur Abdomen/GI:Soft, distended, Non tender,+umbilical hernia, Bowel sounds present Extremities/Musculoskeletal:normal inspection, Trace edema Neurologic/Psych:AAOX3, grossly no focal neurological deficits Skin: normal color, warm Results & Data Results & Data Vital Signs (Past 12 Hours) Vital Signs Temp Pulse Resp BP Pulse Ox O2 Del Method O2 Flow Rate 05/15/25 10:50 36.7 C 69 17 148/74 H 98 Nasal Cannula 2 05/15/25 08:33 Nasal Cannula 2 05/15/25 07:17 36.5 C 65 20 136/49 L 95 Nasal Cannula 2 05/15/25 03:54 37.0 C 65 17 129/54 L 95 Nasal Cannula 2 05/14/25 23:43 37.2 C 63 17 131/55 L 94 Nasal Cannula 2 Laboratory Results Short CBC 05/14/25 05/14/25 05/15/25 Range/Units 14:37 20:44 05:42 WBC 2.94 L (4.8-10.8) K/ul Hgb 8.2 L 8.2 L 8.0 L (14.0-18.0) g/dl Hct 24.5 L 25.0 L 25.5 L (42.0-52.0) % Plt Count 61 L (130-400) K/uL BMP 05/15/25 05:42 Sodium 138 Potassium 4.9 Chloride 114 H Carbon Dioxide 20 L BUN 64 H Creatinine 2.02 H Glucose 89 Calcium 8.6 (1) Hematuria Hematuria type: unspecified type Qualified Code(s): R31.9 - Hematuria, unspecified
[2025-05-16 04:46] LABS: Hematocrit (blood only) 23.8 % (42.0-52.0); Hemoglobin 7.8 g/dl (14.0-18.0); Mean Corpuscular Hemoglobin 31.2 pg (25.0-34.0); Mean Corpuscular Hgb Conc 32.8 g/dL (32.0-36.0); Mean Corpuscular Volume 95.2 fL (80.0-100.0); Mean Platelet Volume 10.8 fL (9.4-12.4); Platelet Count 62 K/uL (130-400); RDW Coefficient of Variation 19.1 % (11.5-14.5); RDW Standard Deviation 66.2 fL (36.4-46.3); White Blood Count 3.51 K/ul (4.8-10.8)
[2025-05-16 05:01] LABS: BUN Creatinine Ratio 34.1 (10-20); Calcium 8.5 mg/dl (8.6-10.3); Creatinine Clr Calc Pharmacy 31.6 ml/min; Potassium 4.6 mmol/L (3.5-5.1)
[2025-05-16] MEDS: ONDANSETRON INJ 2 MG/ML 2 ML VIAL IV PRN (10:23)
--- NOTE | 2025-05-16 11:26 | Hospitalist Progress Note ---
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: Plan Patient is a medically complex 74-year-old male with past medical history significant for decompensated FOFANA cirrhosis s/p TIPS with esophageal varices, recurrent ascites with SBP, HCC [on supportive treatment only/not candidate for cancer directed therapy due to age and comorbidities per outpatient oncology documentation], thrombocytopenia, chronic anemia, gastric antral vascular ectas ia, hepatic encephalopathy, non-occlusive portal vein thrombosis, prostate cancer s/p radiotherapy on chronic Lupron suppression c/b radiation cystitis with recurrent hematuria, CKD stage IIIa, insulin-requiring DMII and other problems listed below who presented to the ED via EMS from [facility] with gross hematuria. Acute blood loss anemia likely due to recurrent hematuria secondary to chronic radiation cystitis --CT ABD:Small amount of gas in the nondistended urinary bladder. Small amount of patchy density dependently in the urinary bladder, debris versus clot. Stable findings of cirrhosis, portal hypertension, and small amount of ascites. Increased size of small right pleural effusion. --S/P 2 units PRBCs Monitor and transfuse as needed H&H Continue Kan catheter for now Appreciate urology input Avoid anticoagulation Bladder scan as needed Urology following: Recommends no intervention at this time. Recommends to follow-up with [facility] urology Dr. Peraza upon discharge Hemoglobin 7.8 today Hematuria seems to be improving Monitor CBC Complicated Urinary tract infection--POA H/O prostate cancer S/P radiation, Lupron Urine culture: Preliminary growing VRE Enterococcus faecium, Mary Continue Daptomycin Consider ID evaluation if needed Continue Kan catheter for now Urology on board Final urine culture pending Acute kidney injury on CKD stage IIIa Baseline 1.8-2.0 Creatinine 1.85 today Monitor renal function Avoid nephrotoxic agents as able Appreciate nephrology input Renal function stable Hyperkalemia Likely due to LUCRETIA continue to hold Aldactone Completed [facility] Monitor potassium levels Received a dose of IV Lasix Appreciate nephrology input Potassium levels within normal limits currently Hypomagnesemia Replete and monitor Abnormal Head CT Transient blurry vision Compression of brain without herniation --CT head:There are shifting subdural homogeneously low attenuating collections, which is now increased on the right, and the prior left-sided subdural collection has resolved. There is now approximately 3 mm of leftward midline shift. These may represent chronic subdural hematomas or hygromas. -Recent ground-level fall on 04/01/25 leading to SDH [place] [facility] [place] --> resolution of previously described subarachnoid and intraventricular hemorrhage S/p course of Keppra [place] [facility] [place] no surgical intervention required --MRI Brain:No evidence of acute intracranial pathology. There is a right subdural fluid collection measuring 12.5 mm in maximal diameter causing 3.5 mm of midline shift to the left. --MRA Head:Negative MRA of the brain. --Neck MRA:Negative MRA of the neck. Neuro Checks Appreciate neurology input: No intervention currently needed, monitor Cervical stenosis at C5-C6 MRI Neck pending Consider orthopedic spine evaluation Decompensated FOFANA cirrhosis s/p TIPs w/ esophageal varices Recurrent ascites, history of SBP Waxing/waning mentation level in ED --> ? possible baseline Recently completed ABX course last month [place] [facility] [place] -[place]/05 [place] [facility]Ascitic fluid cx grew Serratia marcescens susceptible to cefepime/Rocephin/cipro/gent/Bactrim -Was started on prophylactic cipro for SBP prevention as directed by hepatology CTAP: stable findings of cirrhosis, portal hypertension, and small amount of ascites. --Patient currently requiring weekly paracentesis per family: Advised to follow- up with hepatology as outpatient Completed IV Rocephin course Resuming home chronic suppressive ciprofloxacin therapy before for SBP prevention Continue home lactulose, Xifaxan Resume home diuretics as able Monitor volume status Will request IR to do paracentesis likely tomorrow Palliative care consulted to address goals of care Increased size of small R pleural effusion On 2L NC, resp status stable Continue to monitor for now Received IV Lasix Insulin-dependent DM II Hgb A1c 9.2% 1mo ago HbA1c 5.8 currently Continue insulin per protocol Appreciate glycemic pharm assistance Antineoplastic chemotherapy induced pancytopenia UDAY Continue iron supplementation Monitor CBC Gout Continue allopurinol GERD Continue PPI DVT Px: SCDs/TEDs Re: Hematuria, Anemia Code Status: DNR/DNI Disposition: Rehab as able Admission and Anticipated Discharge Date Admission Date: May 12, 2025 Subjective Patient is seen and examined at bedside Poor historian [place]-red urinary catheter Reports having nausea but no vomiting today States that he feels distressed but denies any specific complaints otherwise Denies any significant abdominal pain Denies any chest pain, dyspnea, nausea, vomiting, abdominal pain Review of Systems Review of Systems: All systems reviewed & are unremarkable except as noted in Subjective Physical Exam Physical Exam: Physical Exam: Vitals signs as noted above General Appearance:Thin, frail, no apparent distress, ill appearing Head: normocephalic, Atraumatic Eyes: normal inspection, EOMI Neck: supple, Trachea midline Respiratory/Chest: Normal breath sounds, CTA, No accessory muscle use Cardiovascular: S1, S2, No murmur Abdomen/GI:Soft, distended, Non tender,+umbilical hernia, Bowel sounds present Extremities/Musculoskeletal:normal inspection, Trace edema Neurologic/Psych:AAOX3, grossly no focal neurological deficits Skin: normal color, warm Results & Data Results & Data Vital Signs (Past 12 Hours) Vital Signs Temp Pulse Resp BP Pulse Ox O2 Del Method O2 Flow Rate 05/16/25 07:27 36.3 C L 111 H 20 126/63 92 Room Air 05/16/25 02:47 37.9 C H 70 16 114/42 L 94 Room Air 05/15/25 23:29 Nasal Cannula 2 Laboratory Results Short CBC 05/16/25 Range/Units 04:13 WBC 3.51 L (4.8-10.8) K/ul Hgb 7.8 L (14.0-18.0) g/dl Hct 23.8 L (42.0-52.0) % Plt Count 62 L (130-400) K/uL BMP 05/16/25 04:13 Sodium 133 L Potassium 4.6 Chloride 110 H Carbon Dioxide 18 L BUN 63 H Creatinine 1.85 H Glucose 141 H Calcium 8.5 L (1) Hematuria Hematuria type: unspecified type Qualified Code(s): R31.9 - Hematuria, unspecified
[2025-05-16] MEDS: DAPTOmycin 400 MG in SYRINGE 0 ML IV SCH (14:34)
[2025-05-16] MEDS: PROMETHAZINE 6.25 MG/50.25 ML BAG IV PRN (21:25)
[2025-05-17] MEDS: ACETAMINOPHEN 325 MG TAB PO PRN (06:10)
[2025-05-17 06:12] LABS: Hematocrit (blood only) 28.8 % (42.0-52.0); Hemoglobin 9.5 g/dl (14.0-18.0); Mean Corpuscular Hemoglobin 31.5 pg (25.0-34.0); Mean Corpuscular Volume 95.4 fL (80.0-100.0); Mean Platelet Volume 10.7 fL (9.4-12.4); Platelet Count 86 K/uL (130-400); RDW Coefficient of Variation 19.8 % (11.5-14.5); RDW Standard Deviation 68.1 fL (36.4-46.3); Red Blood Count 3.02 M/uL (4.70-6.10); White Blood Count 5.41 K/ul (4.8-10.8)
[2025-05-17 06:29] LABS: BUN Creatinine Ratio 31.7 (10-20); Calcium 8.6 mg/dl (8.6-10.3); Creatinine Clr Calc Pharmacy 27.1 ml/min; Magnesium 1.7 mg/dl (1.7-2.4); Potassium 5.5 mmol/L (3.5-5.1)
[2025-05-17] MEDS: CIPROFLOXACIN 500 MG TAB PO SCH (09:07)
--- NOTE | 2025-05-17 10:02 | Palliative Care Consultation ---
Date of Consultation May 17, 2025 Assessment & Plan (1) Palliative care by specialist: Met with pt at bedside. No visitors present. Introduced Palliative Medicine and explained our role in advanced care planning, symptom management and navigation through the progression of life limiting disease. Patient was receptive to palliative services for goals of care discussions. Reviewed we are different from hospice, a home health nurse visiting service. (2) Impaired decision making: Pt found to be drowsy and arousable. He was able to tell me he is in [facility], but unclear on why and drifted off to sleep frequently during conversation. Patient currently lacks decisional capacity based on the inability to convey understanding of personal PMHx, current medical condition, treatment options nor the risks / benefits/ potential outcomes of accepting/declining those options, and inability to make decisions based on such knowledge. Hospital does not have written documentation of patient wishes concerning his chosen proxy for medical decisions. Per PA [id number], in absence of written documentation of patient wishes, pt's proxy for medical decisions would be his Lucy. Pt DOES currently require a proxy for medical decisions. (3) Counseling regarding advanced directives and goals of care: No visitors present, Attempt made to contact pt's son Alex by phone, no answer, general VM left. Plan Palliative care will continue to follow for ongoing GOC discussion and patient/ family support. DNR/DNI History of Present Illness Reason for Consultation: goals of care Requesting Physician: Tavo Paul MD Attending Physician: Tavo Paul MD History of Present Illness 74-year-old male with past medical history significant for decompensated FOFANA cirrhosis s/p TIPS with esophageal varices, recurrent ascites with SBP, HCC [on supportive treatment only/not candidate for cancer directed therapy due to age and comorbidities per outpatient oncology documentation], thrombocytopenia, chronic anemia, gastric antral vascular ectasia, hepatic encephalopathy, non- occlusive portal vein thrombosis, prostate cancer s/p radiotherapy on chronic Lupron suppression c/b radiation cystitis with recurrent hematuria, CKD stage IIIa, insulin-requiring DMII and other problems listed below who presented to the ED via EMS from [facility] with gross hematuria. Most recent hospitalization at [facility] from 04/01/25-05/07/25 after sustaining a GLF and was found to have a SDH/SAH. Seen and evaluated by NSGY. Completed 7- day inpatient course of Keppra. No surgical intervention required. Hospital course was complicated by encephalopathy with waxing/waning mental status as well as SBP. Patient underwent paracentesis on 04/09, 04/12, 04/16 and 04/22 with all fluid studies consistent with SBP. Ascitic fluid culture on 04/09 consistent with Serratia marcescens with susceptibility to cefepime, Rocephin, ciprofloxacin, gentamicin and Bactrim. Completed antibiotic course, consisting of IV meropenem and po ciprofloxacin, for SBP on 04/29. He was started on po ciprofloxacin once daily for SBP prophylaxis per hepatology recommendations. Patient also seen and evaluated by nephrology for LUCRETIA and hyperkalemia during that admission. He was also found to have acute on chronic anemia without overt bleeding initially requiring 3 units of PRBCs. He was started on iron supplementation as well based on iron studies. He required Mendoza catheter placement due to gross hematuria with passage of clots in the setting of radiation cystitis. He then required another 1 unit of PRBCs on 05/03 due to another drop in Hgb which was thought to be due to his gross hematuria and passage of clots. There was an attempt to remove his urinary catheter on 05/03 however he was noted to be retaining therefore it was subsequently replaced. Most recently had paracentesis done on 05/05. Patient was discharged to [facility] on 05/07. Allergies Allergy/AdvReac Type Severity Reaction Status Date / Time No Known Allergies Allergy Mild Verified 03/03/25 11:08 Home Medications Medication Instructions Recorded Confirmed Type allopurinol 100 mg tablet 200 mg PO QAM 05/16/20 05/12/25 History [id number] acid-vit 1 tab PO QAM 05/17/23 05/12/25 History K-lycop 400 mcg-20 mcg-370 mcg tablet (Men's 50 Plus Multivitamin) duloxetine 30 mg capsule,delayed 30 mg PO QAM 02/02/24 05/12/25 History release pantoprazole 40 mg tablet,delayed 40 mg PO BID 02/02/24 05/12/25 History release rifaximin 550 mg tablet (Xifaxan) 550 mg PO BID 02/02/24 05/12/25 History finasteride 5 mg tablet 5 mg PO QAM 03/20/24 05/12/25 History insulin glargine 100 unit/mL (3 38 unit subcut QAM 05/20/24 05/12/25 History mL) subcutaneous pen (Lantus Solostar U-100 Insulin) oxybutynin chloride 5 mg tablet 5 mg PO TID PRN Bladder Spasms 05/20/24 05/12/25 History solifenacin 5 mg tablet 5 mg PO QAM 05/20/24 05/12/25 History zinc gluconate 50 mg tablet 50 mg PO QAM ##0 05/20/24 05/12/25 History furosemide 40 mg tablet 40 mg PO QAM #30 tabs 05/30/24 05/12/25 Rx spironolactone 100 mg tablet 100 mg PO QAM #30 tabs 05/30/24 05/12/25 Rx cholecalciferol (vitamin D3) 25 50 mcg PO QAM 05/12/25 05/12/25 History mcg (1,000 unit) tablet ciprofloxacin HCl 500 mg tablet 500 mg PO QAM 05/12/25 05/12/25 History ferrous sulfate 325 mg (65 mg 325 mg PO BID 05/12/25 05/12/25 History iron) tablet furosemide 20 mg tablet 20 mg PO HS 05/12/25 05/12/25 History insulin aspart U-100 100 unit/mL 1 sliding scale dose subcut 05/12/25 05/12/25 History subcutaneous solution USEASDIRECTD lactulose 10 gram/15 mL oral 20 g PO BID 05/12/25 05/12/25 History solution levocarnitine 1 gram/10 mL oral 1 g PO BID 05/12/25 05/12/25 History solution Patient History Medical History CKD (chronic kidney disease) stage 3, GFR 30-59 ml/min Thrombocytopenia DM type 2 (diabetes mellitus, type 2) Hx of malignant neoplasm of prostate History of blood transfusion 11/2022 Hepatocellular carcinoma Spinal fracture of T12 vertebra History of recent hospitalization 06/2023 [facility] hepatic encephalopathy Liver spots Under surveillance, stable per patient Anxiety and depression Liver cirrhosis secondary to FOFANA Anemia of chronic disease under surveillance History of panic attacks Gout No current issues GERD (gastroesophageal reflux disease) GAVE (gastric antral vascular ectasia) Hypertension Hx Esophageal varices EGD 05/22/23 ([facility]): Grade 1 varices in distal esophagus without high risk stigmata Upper GI bleed Hx Psoriasis Surgical History History of left cataract surgery History of right cataract surgery History of prostate biopsy malignant S/P TIPS (transjugular intrahepatic portosystemic shunt) History of esophagogastroduodenoscopy (EGD) Most recent 05/2023 [facility] History of colonoscopy with polypectomy History of tonsillectomy and adenoidectomy History of abdominal paracentesis Multiple, most recent 01/2023 Family History Father , "3/ liver gone due to drinking" Colorectal cancer, Onset Age: 63 Mother Lung cancer Daughter Cancer cervical and thyroid cancers Ovarian cancer Other No family history of adverse response to anesthesia 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 Smoking Status: Never smoker Second Hand Exposure: No; Do You Dip or Chew Tobacco: No; Tobacco Cessation Education Requested by Patient: No Hx Alcohol Use: No Hx Substance Use: No Preferred Language: Bulgarian Communication Ability: Impaired Communication Ability Comment: AMS, unable to communicate Visual Impairment: No Limitations Hearing Ability: Normal Cafeteria Table Attendant Required: No Beliefs That Will Affect Care: None marital status: Current Living Situation: Skilled Nursing Current Living Situation Comment: 1 level single family home 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 How many Children do You have: 6 How many Children do You have Comment: one , eldest daughter in her sleep from seizure disorder Other Information That Helps Us Care for You: No Feels Safe at Home: No Is there a partner from a previous relationship who is making you feel unsafe now?: No Any Concerns about Your Family Situation: No Would You Like to Speak to Someone About Your Situation: No Safety Concerns: Feels Safe At This Time Childhood Exposure to Second-Hand Smoke: Yes Diet Comment: "I watch my sugar, average fasting is 140 mg/dl" caffeine: Yes (cola, sugar free, decaf) during the past year weight has: remained stable Dental Care, Regularly: No Physical Activity Frequency: Does not Exercise Seatbelt Use: always Sunscreen Use: Yes Assistive Devices: Glasses, Oxygen - Continuous and Walker Review of Systems Review of Systems: All systems reviewed & are unremarkable except as noted in HPI & below and Unobtainable due to cognitive status Physical Exam Constitutional: + ill appearing, + thin, + frail appeari ng, cooperative, comfortable and + lethargic; no acute distress Eyes: PERRL, conjunctivae normal, anicteric sclerae ENMT: external ear and nose normal, oropharynx normal Respiratory: + uses accessory muscles, + tachypneic a nd + prolonged expiratory phase Cardiovascular: RRR, no murmur, no edema Gastrointestinal (Abdomen): Inspection/Auscultation: + abdomen distended and normal bowel sounds Percussion/Palpation: + abdomen tender and + abdomen firm Skin: no rashes, warm and dry Psychiatric: Orientation: oriented to person, oriented to place, oriented to time and cooperative Eye Contact: + poor eye contact Results & Data Vital Signs (Past 12 Hours) Vital Signs Temp Pulse Pulse Resp BP BP Pulse Ox 05/17/25 08:07 36.9 C 69 96 H 18 109/54 L 95 05/17/25 04:23 37.0 C 75 119/47 L 95 05/16/25 23:44 37.0 C 102 H 18 122/68 92 O2 Del Method 05/17/25 08:07 Room Air 05/17/25 04:23 Room Air 05/16/25 23:44 Room Air Laboratory Results Abnormal lab results 05/16/25 05/16/25 05/17/25 Range/Units 16:42 20:59 05:30 RBC 3.02 L (4.70-6.10) M/uL Hgb 9.5 L (14.0-18.0) g/dl Hct 28.8 L (42.0-52.0) % RDW Std Deviation 68.1 H (36.4-46.3) fL RDW Coeff of Violetta 19.8 H (11.5-14.5) % Plt Count 86 L (130-400) K/uL Sodium 135 L (136-145) mmol/L Potassium 5.5 H (3.5-5.1) mmol/L Chloride 111 H (98-107) mmol/L Carbon Dioxide 17 L (21-32) mmol/L BUN 69 H (6-23) mg/dl Creatinine 2.18 H D (0.6-1.4) mg/dl BUN/Creatinine Ratio 31.7 H (10-20) Glucose 161 H (70-99(Fasting)) mg/dl POC Glucose 141 H 142 H (70-99) mg/dl 05/17/25 Range/Units 11:16 RBC (4.70-6.10) M/uL Hgb (14.0-18.0) g/dl Hct (42.0-52.0) % RDW Std Deviation (36.4-46.3) fL RDW Coeff of Violetta (11.5-14.5) % Plt Count (130-400) K/uL Sodium (136-145) mmol/L Potassium (3.5-5.1) mmol/L Chloride (98-107) mmol/L Carbon Dioxide (21-32) mmol/L BUN (6-23) mg/dl Creatinine (0.6-1.4) mg/dl BUN/Creatinine Ratio (10-20) Glucose (70-99(Fasting)) mg/dl POC Glucose 189 H (70-99) mg/dl Diagnostic Findings Abdomen/Pelvis CT 05/12/25 12:[address] WITHOUT CONTRAST CT DOSE: 704.54 mGy.cm HISTORY: mendoza placement confirmation TECHNIQUE: Multiaxial CT images of the abdomen and pelvis were performed without contrast. A dose lowering technique was utilized adhering to the principles of ALARA. COMPARISON STUDY: 04/01/2025 FINDINGS: There is a small right pleural effusion, increased in size, with adjacent compressive atelectasis at the right lower lung lobe. There is mild atelectasis at the left lung base. There are diffuse coronary artery calcifications. ABDOMEN: Stable gallstones without evidence of acute cholecystitis. Stable cirrhotic morphology of the liver, splenomegaly, and prominence of the portal vein consistent with cirrhosis and portal hypertension. There is a small amount of diffuse ascites. Stable TIPS shunt. Stable peripherally calcified hypodense finding at or adjacent to the pancreatic head measuring 2 cm. Adrenal glands are unremarkable. Kidneys show no hydronephrosis or calculi. There are atherosclerotic calcifications. No abdominal aortic aneurysm. Pelvis: Prostate is enlarged. Urinary bladder is nondistended. There is a small amount of gas within the urinary bladder. No Mendoza catheter seen. There is a small amount of patchy density dependently in the urinary bladder, debris versus clot. There is extensive sigmoid diverticulosis. No acute diverticulitis. No bowel inflammation or obstruction. No free air or abscess. Osseous structures: Stable mild height loss at multiple lower thoracic and upper lumbar vertebral bodies. Stable spinal degenerative changes. There are moderate degenerative changes at the hips. IMPRESSION: 1. No Mendoza catheter seen. 2. Small amount of gas in the nondistended urinary bladder. Small amount of patchy density dependently in the urinary bladder, debris versus clot. 3. Stable findings of cirrhosis, portal hypertension, and small amount of ascites. 4. Increased size of small right pleural effusion. 5. Otherwise as described. ACT 112: Negative or not required by law. The above report was generated using voice recognition software. It may contain grammatical, syntax or spelling errors. Electronically signed by: Alex Moreau M.D. 05/12/2025 12:[address] 05/12/25 15:52 CT head without contrast History: AMS Comparison: 04/01/2025 Technique: Using multidetector thin collimation helical acquisition technique, axial, coronal and sagittal CT images from the skull base to the vertex were obtained without intravenous contrast. Dose reduction techniques were achieved by using automatic exposure control and/or adjustment of mA and/or kV according to patient size and/or use of iterative reconstruction technique. Findings: The prior multifocal areas of mild subarachnoid hemorrhage on prior are no longer seen. No persistent subarachnoid hemorrhage. Over the right cerebral convexity, there is interval increase in a homogeneous low attenuating subdural collection, which now measures up to 11 mm in the coronal plane, previously 3.5 mm. Notably a prior left-sided cerebral convexity 3.5 cm homogeneous low attenuating subdural collection appears to have resolved. There is new slight leftward midline shift of approximately 3 mm. The calvarium and skull base appear intact. Bilateral pseudophakia. Moderate to marked cerebral atrophy. No hydrocephalus. Impression: There are shifting subdural homogeneously low attenuating collections, which is now increased on the right, and the prior left-sided subdural collection has resolved. There is now approximately 3 mm of leftward midline shift. These may represent chronic subdural hematomas or hygromas. Electronically signed by Jose Ramon Alexander 05-12-2025 5:12 PM Brain MRI 05/13/25 10:37 Exam(s): MRI HEAD Without Contrast EXAM: MR Head Without Intravenous Contrast CLINICAL HISTORY: Reason for exam: Blurry Vision. TECHNIQUE: Magnetic resonance images of the head/brain without intravenous contrast in multiple planes. COMPARISON: Prior head CT from May 12. FINDINGS: Brain: Mild nonspecific white matter changes. There is a tiny remote ischemic injury of the right cerebellum. There is a dilated perivascular space or remote ischemic injury of the left capsule. There is a right subdural fluid collection very 12.5 mm in maximal diameter causing 3.5 mm of midline shift to the left. No mass. No hemorrhage. No acute infarct. The flow voids at the base the brain are intact. There is hemosiderin staining within the left temporal lobe sulci. Ventricles: Mild ventriculomegaly. Bones/joints: There is loss of normal T1 bright bone marrow signal within the proximal cervical spine. No acute fracture. Sinuses: Unremarkable as visualized. No acute sinusitis. Mastoid air cells: Unremarkable as visualized. No mastoid effusion. Orbits: Bilateral lens replacements. IMPRESSION: No evidence of acute intracranial pathology. There is a right subdural fluid collection measuring 12.5 mm in maximal diameter causing 3.5 mm of midline shift to the left. Electronically signed by: Radha Blandon MD 05/14/25 01:29 AM Head MRA 05/13/25 19:16 Exam(s): MRA HEAD Without Contrast EXAM: MR Angiography Head Without Intravenous Contrast CLINICAL HISTORY: Reason for exam: Change in vision. TECHNIQUE: Magnetic resonance angiography images of the head without intravenous contrast. COMPARISON: No relevant prior studies available. FINDINGS: Right internal carotid artery: No acute findings. Intracranial segment is patent with no significant stenosis. No aneurysm. Right anterior cerebral artery: Unremarkable. No occlusion or significant stenosis. No aneurysm. Right middle cerebral artery: Unremarkable. No occlusion or significant stenosis. No aneurysm. Right posterior cerebral artery: Unremarkable. No occlusion or significant stenosis. No aneurysm. Right vertebral artery: Unremarkable as visualized. Left internal carotid artery: No acute findings. Intracranial segment is patent with no significant stenosis. No aneurysm. Left anterior cerebral artery: Unremarkable. No occlusion or significant stenosis. No aneurysm. Left middle cerebral artery: Unremarkable. No occlusion or significant stenosis. No aneurysm. Left posterior cerebral artery: Unremarkable. No occlusion or significant stenosis. No aneurysm. Left vertebral artery: Unremarkable as visualized. Basilar artery: Unremarkable. No occlusion or significant stenosis. No aneurysm. IMPRESSION: Negative MRA of the brain. Electronically signed by: Radha Blandon MD 05/14/25 01:18 AM Neck MRA 05/13/25 19:16 CR Exam(s): MRA NECK Without Contrast EXAM: MR Angiography Neck Without Intravenous Contrast CLINICAL HISTORY: Reason for exam: Change in vision. TECHNIQUE: Magnetic resonance angiography images of the neck without intravenous contrast. COMPARISON: No relevant prior studies available. FINDINGS: Right common carotid artery: Unremarkable. No significant stenosis. No dissection or occlusion. Right internal carotid artery: Unremarkable. Extracranial segment is patent with no significant stenosis. No dissection or occlusion. Right external carotid artery: Unremarkable. No occlusion. Right vertebral artery: Unremarkable. No significant stenosis. No dissection or occlusion. Left common carotid artery: Unremarkable. No significant stenosis. No dissection or occlusion. Left internal carotid artery: Unremarkable. Extracranial segment is patent with no significant stenosis. No dissection or occlusion. Left external carotid artery: Unremarkable. No occlusion. Left vertebral artery: Unremarkable. No significant stenosis. No dissection or occlusion. Soft tissues: There is a critical spinal canal stenosis at C5-6. CAROTID STENOSIS REFERENCE USING NASCET CRITERIA: % ICA stenosis = (1 - narrowest ICA diameter/diameter of distal cervical ICA) x 100. Mild - <50% stenosis. Moderate - 50-69% stenosis. Severe - 70-94% stenosis. Near occlusion - 95-99% stenosis. Occluded - 100% stenosis. IMPRESSION: Negative MRA of the neck. There is a critical spinal canal stenosis at C5-6. Recommend MRI cervical spine to evaluate for myelopathy. Communications: Verify Receipt Electronically signed by: Radha Blandon MD 05/14/25 01:42 AM Cervical Spine MRI 05/15/25 06:15 EXAM: MR cervical spine wo/w con CLINICAL HISTORY: spinal canal stenosis TECHNIQUE: MRI of the cervical spine was performed with and without contrast. Sequences obtained include sagittal T1-weighted, T2-weighted, STIR (Short Tau Inversion Recovery), and axial T2-weighted sequences. Additional sequences such as gradient echo (GRE) or post-contrast T1-weighted images may have been included based on clinical indication. both obliques made. COMPARISON: Comparison is made with prior imaging studies CT dated 04/01/2025 . FINDINGS: Vertebral Alignment: Straightening of the cervical lordosis suggests muscle spasm. No evidence of fracture or subluxation. Vertebral Bodies and Intervertebral Discs: Cervical spondylitic changes manifested by marginal osteophytes at the opposing vertebral plates and variable degrees of degenerated cervical disks. Degenerative changes involving uncovertebral and facet joints bilaterally at multiple levels, as well as PLL calcifications. Diffuse decreased bone marrow signals in T1/T2 in all cervical spine, could be ostoeportic changes, other possible bone marrow replacement disorders could not be ruled out, further assessment is needed. [id number] analysis: C2-C3: There is a 2.3 mm right posterolateral disc bulge/osseophyte complex causing moderate right neural foraminal stenosis with no spinal canal stenosis. C3-C4: Diffuse disc bulge with superior migration and posterior annular fissure measuring about 2 mm causing moderate bilateral neural foraminal stenosis with no spinal canal compromise. C4-C5: Diffuse disc bulge/osotephyte complex measuring about 3.2 mm causing moderate left and mild right neural foraminal stenosis with no spinal canal compromise. C5-C6: Diffuse disc bulge /osseophyte complex measuring about 4 mm causing moderate spinal canal and bilateral marked neural foraminal stenosis indenting the thecal sac. Ligamenta flava hypertrophy is noted. C6-C7: Diffuse disc bulge /osseophyte complex measuring about 4.3 mm causing mild to moderate spinal canal and bilateral marked neural foraminal stenosis indenting the thecal sac. Ligamenta flava hypertrophy is noted. C7-T1: There is no significant disc pathology. Normal morphology of the ligamentum flava. No arthropathy of the uncovertebral and zygapophyseal joints. No significant spinal canal stenosis. Spinal Cord and Nerve Roots: The spinal cord demonstrates normal signal intensity and caliber. No evidence of cord compression or intradural pathology. Nerve roots appear unremarkable bilaterally. Soft Tissues: Paraspinal soft tissues appear normal without evidence of abnormal signal intensity or mass lesions. Vascular Structures: Normal appearance of the visualized vascular structures. No evidence of aneurysm, dissection, or significant atherosclerosis. Normal enhancement post-contrast. IMPRESSION: 1. Straightening of the cervical lordosis suggests muscle spasm. 2. Cervical spondylitic changes. 3. Multilevel cervical disc bulges and osteophytic complexes, more evident at C5-C6 and C6-C7, causing spinal canal and neural foraminal stenosis as described. 4. Degenerative changes involving uncovertebral and facet joints bilaterally at multiple levels, as well as PLL calcifications. 5. Diffuse decreased bone marrow signals in T1/T2 in all cervical spine, could be osteoportic changes, other possible bone marrow replacement disorders could not be ruled out, further assessment is needed. 6. No significant interval changes given the difference in the modalities. Electronically signed by Ke Hernández 05-15-2025 07:53 AM Medications Administered Current Inpatient Medications Acetaminophen (Acetaminophen 325 Mg Tab) 650 mg PO Q4H PRN PRN Reason: Pain or Fever Stop: 06/11/25 17:05 Last Admin: 05/17/25 09:09 Dose: 650 mg Allopurinol (Allopurinol 100 Mg Tab) [facility] [place] Stop: 06/12/25 08:59 Last Admin: 05/17/25 09:10 Dose: 200 mg Ciprofloxacin (Ciprofloxacin 500 Mg Tab) 500 mg PO QAM JODI; Protocol Stop: 06/16/25 08:59 Last Admin: 05/17/25 09:07 Dose: 500 mg Dextrose (Dextrose 50% 50 Ml Syringe) 25 - 50 ml IV UD PRN; Protocol PRN Reason: Hypoglycemia Protocol Stop: 06/11/25 16:36 Duloxetine HCl (Duloxetine Hcl 30 Mg Cap) [facility] [place] Stop: 06/12/25 08:59 Last Admin: 05/17/25 09:10 Dose: 30 mg Ferrous Sulfate (Ferrous Sulfate 325 Mg Tab) 325 mg PO BID [facility] Stop: 06/11/25 20:59 Last Admin: 05/17/25 09:09 Dose: 325 mg Finasteride (Finasteride 5 Mg Tab) [facility] [place] Stop: 06/12/25 08:59 Last Admin: 05/17/25 09:07 Dose: 5 mg Glucagon (Glucagon For Inj 1 Mg Vial) 1 mg SQ UD PRN; Protocol PRN Reason: Hypoglycemia Protocol Stop: 06/11/25 16:36 Glucose (Glucose 40% Gel 15 Gm Tube) 15 - 30 gm PO UD PRN; Protocol PRN Reason: Hypoglycemia Protocol Stop: 06/11/25 16:36 Glucose (Glucose 10 Tab/Tube) 4 - 8 tab PO UD PRN; Protocol PRN Reason: Hypoglycemia Protocol Stop: 06/11/25 16:36 Promethazine HCl (Phenergan) 6.25 mg in 50.25 mls @ 201 mls/hr IV Q6H PRN PRN Reason: Nausea And Vomiting Stop: 06/15/25 11:33 Last Infusion: 05/17/25 10:31 Dose: Infused Daptomycin 700 mg/ Syringe 14 mls @ 7 mls/min IV Q48H [facility]; Protocol Stop: 05/20/25 11:59 Insulin Aspart (Insulin Aspart Per Unit Charge) 0 units SC ACHS [facility] Stop: 06/11/25 16:59 Last Admin: 05/17/25 12:38 Dose: 6 units Insulin Glargine (Lantus Per Unit Charge) 5 units SC DAILY [facility] Stop: 06/16/25 12:29 Last Admin: 05/17/25 12:38 Dose: 5 units Lactulose (Lactulose Syrup 10 Gm/15 Ml Btl 960 Ml) 20 gm PO BID [facility] Stop: 06/11/25 20:59 Last Admin: 05/17/25 09:08 Dose: 20 gm Levocarnitine (Levocarnitine (With Sugar) 100 Mg/Ml Udp) 1,000 mg PO BID [facility] Stop: 06/11/25 20:59 Last Admin: 05/17/25 09:08 Dose: 1,000 mg Magnesium Chloride (Magnesium Chloride W/Calcium 64mg Delayed Rel Tab) 64 mg PO BID [facility] Stop: 06/12/25 20:59 Last Admin: 05/17/25 09:10 Dose: 64 mg Magnesium Hydroxide (Magnesium Hydroxide Susp 30 Ml Udc) 30 ml PO Q12H PRN PRN Reason: Constipation Stop: 06/11/25 17:05 Miscellaneous (Carbohydrates For Hypoglycemia ) 15 - 30 gm PO UD PRN PRN Reason: Hypoglycemia Protocol Stop: 06/11/25 16:36 Miscellaneous Information (Pharmacy Glycemic Mgmt Consult) 1 each N/A UD PRN PRN Reason: Consult Stop: 06/11/25 16:36 Multivitamins/Minerals (Cerovite Adv Formula Tab) 1 tab PO QAM [facility] Stop: 06/12/25 08:59 Last Admin: 05/17/25 09:09 Dose: 1 tab Oxybutynin Chloride (Oxybutynin Chloride 5 Mg Tab) 5 mg PO TID PRN PRN Reason: Bladder Spasms Stop: 06/11/25 16:29 Last Admin: 05/13/25 21:54 Dose: 5 mg Oxybutynin Chloride (Oxybutynin Chloride Xl 5 Mg Tabcr) 5 mg PO QAM [facility] Stop: 06/12/25 08:59 Last Admin: 05/17/25 09:10 Dose: 5 mg Pantoprazole Sodium (Pantoprazole 40 Mg Tab) 40 mg PO BID [facility] Stop: 06/11/25 20:59 Last Admin: 05/17/25 09:10 Dose: 40 mg Phenazopyridine HCl (Phenazopyridine Hcl 200 Mg Tab) 200 mg PO TID PRN PRN Reason: Dysuria Stop: 06/12/25 21:53 Last Admin: 05/15/25 09:02 Dose: 200 mg Polyethylene Glycol (Polyethylene (Miralax) 17 Gm Pack) 17 gm PO DAILY PRN PRN Reason: Constipation Stop: 06/11/25 17:05 Rifaximin (Rifaximin 550 Mg Tablet) 550 mg PO BID [facility] Stop: 06/11/25 20:59 Last Admin: 05/17/25 09:07 Dose: 550 mg Sodium Zirconium Cyclosilicate (Sodium Zirconium Cyclosilicate 10 Gm Packet) 10 gm PO TID [facility] Stop: 05/19/25 09:01 PG Care Time/CCT Total # of Minutes Spent Total Time Spent with Patient: Total time spent is greater than 50% in coordination of care (as documented) at patient's floor/unit and/or counseling patient: [place] [address] IN/OBS CONSULT LVL 4,60M Patient Type New History Problem Focused Exam Problem Focused Medical Decision Making Low Complexity Diagnoses Palliative care by specialist Z51.5 Impaired decision making Z78.9 Counseling regarding advanced directives and goals of care Z71.89
--- NOTE | 2025-05-17 10:03 | Consultation ---
Date of Consultation May 17, 2025 Assessment & Plan (1) Spinal stenosis, cervical region: 74-year-old gentleman who is been in hospital for 5 days with gross hematuria. Dr. Lockhart has reviewed imaging and treatment plan. He is completely asymptomatic. He is a very poor surgical candidate. Should he develop radicular symptoms would recommend consultation/follow-up with pain management. Will sign off History of Present Illness Reason for Consultation: Cervical stenosis Attending Physician: Tavo Paul MD History of Present Illness This is a 74-year-old gentleman who has been in the hospital for 5 days due to gross hematuria. We were asked to consult regarding cervical stenosis found on a cervical MRI. Upon examination this morning he denies any neck pain. He denies any upper extremity pain, paresthesia, numbness or weakness. He ambulates with a walker. Patient is a medically complex 74-year-old male with past medical history significant for decompensated FOFANA cirrhosis s/p TIPS with esophageal varices, recurrent ascites with SBP, HCC [on supportive treatment only/not candidate for cancer directed therapy due to age and comorbidities per outpatient oncology documentation], thrombocytopenia, chronic anemia, gastric antral vascular ectasia, hepatic encephalopathy, non-occlusive portal vein thrombosis, prostate cancer s/p radiotherapy on chronic Lupron suppression c/b radiation cystitis with recurrent hematuria, CKD stage IIIa, insulin-requiring DMII and other problems listed below who presented to the ED via EMS from [facility] with gross hematuria. Allergies Allergy/AdvReac Type Severity Reaction Status Date / Time No Known Allergies Allergy Mild Verified 03/03/25 11:08 Home Medications Medication Instructions Recorded Confirmed Type allopurinol 100 mg tablet 200 mg PO QAM 05/16/20 05/12/25 History [id number]-[id number]-mxdva acid-vit 1 tab PO QAM 05/17/23 05/12/25 History K-lycop 400 mcg-20 mcg-370 mcg tablet (Men's 50 Plus Multivitamin) duloxetine 30 mg capsule,delayed 30 mg PO QAM 02/02/24 05/12/25 History release pantoprazole 40 mg tablet,delayed 40 mg PO BID 02/02/24 05/12/25 History release rifaximin 550 mg tablet (Xifaxan) 550 mg PO BID 02/02/24 05/12/25 History finasteride 5 mg tablet 5 mg PO QAM 03/20/24 05/12/25 History insulin glargine 100 unit/mL (3 38 unit subcut QAM 05/20/24 05/12/25 History mL) subcutaneous pen (Lantus Solostar U-100 Insulin) oxybutynin chloride 5 mg tablet 5 mg PO TID PRN Bladder Spasms 05/20/24 05/12/25 History solifenacin 5 mg tablet 5 mg PO QAM 05/20/24 05/12/25 History zinc gluconate 50 mg tablet 50 mg PO QAM ##0 05/20/24 05/12/25 History furosemide 40 mg tablet 40 mg PO QAM #30 tabs 05/30/24 05/12/25 Rx spironolactone 100 mg tablet 100 mg PO QAM #30 tabs 05/30/24 05/12/25 Rx cholecalciferol (vitamin D3) 25 50 mcg PO QAM 05/12/25 05/12/25 History mcg (1,000 unit) tablet ciprofloxacin HCl 500 mg tablet 500 mg PO QAM 05/12/25 05/12/25 History ferrous sulfate 325 mg (65 mg 325 mg PO BID 05/12/25 05/12/25 History iron) tablet furosemide 20 mg tablet 20 mg PO HS 05/12/25 05/12/25 History insulin aspart U-100 100 unit/mL 1 sliding scale dose subcut 05/12/25 05/12/25 History subcutaneous solution USEASDIRECTD lactulose 10 gram/15 mL oral 20 g PO BID 05/12/25 05/12/25 History solution levocarnitine 1 gram/10 mL oral 1 g PO BID 05/12/25 05/12/25 History solution Patient History Medical History CKD (chronic kidney disease) stage 3, GFR 30-59 ml/min Thrombocytopenia DM type 2 (diabetes mellitus, type 2) Hx of malignant neoplasm of prostate History of blood transfusion 11/2022 Hepatocellular carcinoma Spinal fracture of T12 vertebra History of recent hospitalization 06/2023 [facility] hepatic encephalopathy Liver spots Under surveillance, stable per patient Anxiety and depression 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 Anemia of chronic disease under surveillance History of panic attacks Gout No current issues GERD (gastroesophageal reflux disease) GAVE (gastric antral vascular ectasia) Hypertension Hx Esophageal varices EGD 05/22/23 ([facility]): Grade 1 varices in distal esophagus without high risk stigmata Upper GI bleed Hx Psoriasis Surgical History History of left cataract surgery History of right cataract surgery History of prostate biopsy malignant S/P TIPS (transjugular intrahepatic portosystemic shunt) History of esophagogastroduodenoscopy (EGD) Most recent 05/2023 [facility] History of colonoscopy with polypectomy History of tonsillectomy and adenoidectomy History of abdominal paracentesis Multiple, most recent 01/2023 Family History Father , "3/ liver gone due to drinking" Colorectal cancer, Onset Age: 63 Mother Lung cancer Daughter Cancer cervical and thyroid cancers Ovarian cancer Other No family history of adverse response to anesthesia 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 Smoking Status: Never smoker Second Hand Exposure: No; Do You Dip or Chew Tobacco: No; Tobacco Cessation Education Requested by Patient: No Hx Alcohol Use: No Hx Substance Use: No Preferred Language: Korean Communication Ability: Impaired Communication Ability Comment: AMS, unable to communicate Visual Impairment: No Limitations Hearing Ability: Normal [place] Crab Required: No Beliefs That Will Affect Care: None marital status: Current Living Situation: Senior Living Current Living Situation Comment: 1 level single family home 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 How many Children do You have: 6 How many Children do You have Comment: one , eldest daughter in her sleep from seizure disorder Other Information That Helps Us Care for You: No Feels Safe at Home: No Is there a partner from a previous relationship who is making you feel unsafe now?: No Any Concerns about Your Family Situation: No Would You Like to Speak to Someone About Your Situation: No Safety Concerns: Feels Safe At This Time Childhood Exposure to Second-Hand Smoke: Yes Diet Comment: "I watch my sugar, average fasting is 140 mg/dl" caffeine: Yes (cola, sugar free, decaf) during the past year weight has: remained stable Dental Care, Regularly: No Physical Activity Frequency: Does not Exercise Seatbelt Use: always Sunscreen Use: Yes Assistive Devices: Glasses, Oxygen - Continuous and Walker Review of Systems Review of Systems: All systems reviewed & are unremarkable except as noted in HPI & below Physical Exam Physical Exam: Patient is laying in bed in no acute distress Alert and oriented x 3 Cooperative exam He has 5 5 strength bilateral finger intrinsics, finger sensors, wrist flexors, wrist flexors, biceps, triceps, deltoid. No evidence of upper motor neuron signs Results & Data Vital Signs (Past 12 Hours) Vital Signs Temp Pulse Pulse Resp BP BP Pulse Ox 05/17/25 08:07 36.9 C 69 96 H 18 109/54 L 95 05/17/25 04:23 37.0 C 75 119/47 L 95 05/16/25 23:44 37.0 C 102 H 18 122/68 92 O2 Del Method 05/17/25 08:07 Room Air 05/17/25 04:23 Room Air 05/16/25 23:44 Room Air Diagnostic Findings [place] [phone] Magnetic Resonance Report Patient: MERRITT TAPIA Admit Date: 05/12/25 MR#: [id number] Address1: [facility] JOE [address]NORS Acct ID:[id number] Address2: Date: 1950 [facility] [place] Zip: [place] [address] Age: 74 Location: 4W Sex: M Room/Bed: [facility] Att Phy: Tavo Paul MD Diagnosis: ACUTE BLOOD LOSS ANEMIA, HEMATURIA Ita Phy: Kristen Vences DO Service Date: 05/15/25 Fam Phy: Interpreting Phy: Ke Hernández MDAit Phy: Franko Villanueva MD Ordering Phy: Tavo Paul MD cc: ~ EXAM: MR cervical spine wo/w con CLINICAL HISTORY: spinal canal stenosis TECHNIQUE: MRI of the cervical spine was performed with and without contrast. Sequences obtained include sagittal T1-weighted, T2-weighted, STIR (Short Tau Inversion Recovery), and axial T2-weighted sequences. Additional sequences such as gradient echo (GRE) or post-contrast T1-weighted images may have been included based on clinical indication. both obliques made. COMPARISON: Comparison is made with prior imaging studies CT dated 04/01/2025 . FINDINGS: Vertebral Alignment: Straightening of the cervical lordosis suggests muscle spasm. No evidence of fracture or subluxation. Vertebral Bodies and Intervertebral Discs: Cervical spondylitic changes manifested by marginal osteophytes at the opposing vertebral plates and variable degrees of degenerated cervical disks. Degenerative changes involving uncovertebral and facet joints bilaterally at multiple levels, as well as PLL calcifications. Diffuse decreased bone marrow signals in T1/T2 in all cervical spine, could be ostoeportic changes, other possible bone marrow replacement disorders could not be ruled out, further assessment is needed. [id number]-[id number] analysis: C2-C3: There is a 2.3 mm right posterolateral disc bulge/osseophyte complex causing moderate right neural foraminal stenosis with no spinal canal stenosis. C3-C4: Diffuse disc bulge with superior migration and posterior annular fissure measuring about 2 mm causing moderate bilateral neural foraminal stenosis with no spinal canal compromise. C4-C5: Diffuse disc bulge/osotephyte complex measuring about 3.2 mm causing moderate left and mild right neural foraminal stenosis with no spinal canal compromise. C5-C6: Diffuse disc bulge /osseophyte complex measuring about 4 mm causing moderate spinal canal and bilateral marked neural foraminal stenosis indenting the thecal sac. Ligamenta flava hypertrophy is noted. C6-C7: Diffuse disc bulge /osseophyte complex measuring about 4.3 mm causing mild to moderate spinal canal and bilateral marked neural foraminal stenosis indenting the thecal sac. Ligamenta flava hypertrophy is noted. C7-T1: There is no significant disc pathology. Normal morphology of the ligamentum flava. No arthropathy of the uncovertebral and zygapophyseal joints. No significant spinal canal stenosis. Spinal Cord and Nerve Roots: The spinal cord demonstrates normal signal intensity and caliber. No evidence of cord compression or intradural pathology. Nerve roots appear unremarkable bilaterally. Soft Tissues: Paraspinal soft tissues appear normal without evidence of abnormal signal intensity or mass lesions. Vascular Structures: Normal appearance of the visualized vascular structures. No evidence of aneurysm, dissection, or significant atherosclerosis. Normal enhancement post-contrast. IMPRESSION: 1. Straightening of the cervical lordosis suggests muscle spasm. 2. Cervical spondylitic changes. 3. Multilevel cervical disc bulges and osteophytic complexes, more evident at C5-C6 and C6-C7, causing spinal canal and neural foraminal stenosis as described. 4. Degenerative changes involving uncovertebral and facet joints bilaterally at multiple levels, as well as PLL calcifications. 5. Diffuse decreased bone marrow signals in T1/T2 in all cervical spine, could be osteoportic changes, other possible bone marrow replacement disorders could not be ruled out, further assessment is needed. 6. No significant interval changes given the difference in the modalities. Electronically signed by Ke Hernández 05-15-2025 07:53 AM Dictated: 05/15/25 0627 Transcribed:
[2025-05-17] MEDS: LANTUS PER UNIT CHARGE SC SCH (12:38)
[2025-05-17] MEDS: FUROSEMIDE 40 MG/4 ML VIAL IV ONE ×2 (12:39→12:40)
--- NOTE | 2025-05-17 13:00 | Nephrology Progress Note ---
Date of Service May 17, 2025 Assessment & Plan Admission and Anticipated Discharge Date Admission Date: May 12, 2025 Subjective Assessment & Plan (1) Acute kidney injury superimposed on stage 3a chronic kidney disease: He has many comorbid diseases and has very poor baseline health currently and has lot of recent health issues/Admission--bleeding, infection and so on with background decompensated FOFANA cirrhosis. more recent creat is high 1's and low 2's but few months back had normal creat. Creat is currently trending down--cause likely from big drop in hgb to 6.2 causing hemodynamic LUCRETIA--he is very susceptible to this. Creat is running around 2 for many days now. NO workup needed for LUCRETIA. has ascites but not much edema. Continue Kan to avoid obstruction. NO need of Iv fluid. (2) Gross hematuria: with low hgb and still has gross hematuria. recurrent issue. hgb still only 6.7. ? [facility] urology note reviewed. (3) Hyperkalemia: K is 5.5 again today. Started on Lokelma already. Also lowish urine so give lasix 40 iv x 1 Can give lasix 40 mg iv for renal K loss if K gets higher than 5.5 S-- Gross hematuria present ROS---very sluggish and sleepy and unable to get much history from patient. Physical Exam Physical Exam: General: Elderly, chronically ill-appearing. Sleepy and sluggish. HEENT: MM dry.neck Supple Respiratory: Normal respiratory effort, lungs clear to auscultation bilaterally. Cardiovascular: Regular rate and rhythm, normal peripheral pulses. No edema. Abdomen/GI: Ascites ++ Results & Data Vital Signs (Past 12 Hours) Vital Signs Temp Pulse Pulse Resp BP BP Pulse Ox 05/17/25 11:30 36.8 C 59 L 16 111/61 96 05/17/25 08:07 36.9 C 69 96 H 18 109/54 L 95 05/17/25 04:23 37.0 C 75 119/47 L 95 O2 Del Method 05/17/25 11:30 Room Air 05/17/25 08:07 Room Air 05/17/25 04:23 Room Air
--- NOTE | 2025-05-17 13:15 | Pharmacy Report ---
Pharmacy Glycemic Short Note 2 - Date of Service May 17, 2025 - Glycemic Short BSG Results (Last 24 hours): 05/16/25 05/16/25 05/17/25 16:42 20:59 05:30 Glucose 161 H POC Glucose 141 H 142 H 05/17/25 05/17/25 07:33 11:16 Glucose POC Glucose 80 189 H OUTPATIENT ANTIDIABETIC REGIMEN: * Lantus 38 units qAM, novolog SSI HbA1c: 5.8% (05/13/25) ASSESSMENT: 05/17/25: * Patient received total of 12 units of insulin yesterday, of which 10 units were basal insulin * Fasting BSG trending down - 80 mg/dL this AM, will scale back basal to hopefully avoid future hypoglycemia. Appears PO intake was poorer yesterday. * Continue same CF/CR for now 05/14/25: * Blood sugars labile yesterday, ranging 61-218 mg/dL * Will plan on tightening Novolog given upward trend throughout the day * Will utilize past inpatient glycemic data to guide basal 05/13/25: * 74 year old admitted with gross hematuria. Type 2 diabetic - pharmacy consulted for glycemic management. Patient given one time dose of Lantus last evening as likely did not receive his AM dose that morning per reports. RN reporting patient has been confused, not eating much. BSGs this AM lower 61 mg/d, 74 mg/dL - will hold AM basal but have scale on for this evening with reduced dosing. PLAN FOR INPATIENT GLYCEMIC CONTROL: * Basal insulin * Lantus 5 units daily * Bolus insulin * NovoLog per scale ACHS or Q6hrs while NPO * Goal Range: Low 110 mg/dL - High 160 mg/dL * Correction Factor: 25 mg/dL/unit * Nutritional / Prandial insulin per carb ratio of 1 unit per 6 grams CHO consumed
[2025-05-17] MEDS: SODIUM ZIRCONIUM CYCLOSILICATE 10 GM PACKET PO SCH (14:42)
--- NOTE | 2025-05-17 15:01 | Ultrasound Report ---
ULTRASOUND-GUIDED PARACENTESIS CLINICAL HISTORY: Ascites PROCEDURE: Procedure and risks were explained. Informed consent was obtained. A final timeout was com pleted. The abdomen was prepped and draped in sterile fashion. 1% lidocaine was utilized for skin ane sthesia. Utilizing ultrasound guidance, a 5 Nepali safety centesis catheter was advanced into the left lower q uadrant pocket of ascites. Ultrasound images were obtained. A total of 2.5 L of ascites fluid was rem sam and discarded. The catheter was removed and Band-Aid applied. The patient tolerated the procedur e well. Vital signs will be monitored postprocedure. IMPRESSION: Ultrasound-guided paracentesis as above. Performed, dictated, and signed by Luis Ellis PA-C; to be co-signed by Dr. Alex Moreau. Electronically signed by: Alex Moreau M.D. 05/17/2025 3:32 PM
--- NOTE | 2025-05-17 15:21 | Hospitalist Progress Note ---
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: Plan Patient is a medically complex 74-year-old male with past medical history significant for decompensated FOFANA cirrhosis s/p TIPS with esophageal varices, recurrent ascites with SBP, HCC [on supportive treatment only/not candidate for cancer directed therapy due to age and comorbidities per outpatient oncology documentation], thrombocytopenia, chronic anemia, gastric antral vascular ectas ia, hepatic encephalopathy, non-occlusive portal vein thrombosis, prostate cancer s/p radiotherapy on chronic Lupron suppression c/b radiation cystitis with recurrent hematuria, CKD stage IIIa, insulin-requiring DMII and other problems listed below who presented to the ED via EMS from [facility] with gross hematuria. Acute blood loss anemia likely due to recurrent hematuria secondary to chronic radiation cystitis --CT ABD:Small amount of gas in the nondistended urinary bladder. Small amount of patchy density dependently in the urinary bladder, debris versus clot. Stable findings of cirrhosis, portal hypertension, and small amount of ascites. Increased size of small right pleural effusion. --S/P 2 units PRBCs Monitor and transfuse as needed H&H Continue Kan catheter for now Appreciate urology input Avoid anticoagulation Bladder scan as needed Urology following: Recommends no intervention at this time. Recommends to follow-up with [facility] urology Dr. Peraza upon discharge Hemoglobin 9.5 today Hematuria improving Monitor CBC Continue current management Complicated Urinary tract infection--POA H/O prostate cancer S/P radiation, Lupron Urine culture: Preliminary growing VRE Enterococcus faecium, Mary Continue Daptomycin plan to complete 7 day course Continue Kan catheter for now Urology on board Final urine culture pending Acute kidney injury on CKD stage IIIa Baseline 1.8-2.0 Creatinine 2.1 today Monitor renal function Avoid nephrotoxic agents as able Appreciate nephrology input Renal function stable Hyperkalemia Likely due to LUCRETIA, poor oral intake continue to hold Aldactone Monitor potassium levels IV Lasix per nephrology Appreciate nephrology input Potassium 5.5 today Restarted Lokelma Hypomagnesemia Replete and monitor Abnormal Head CT Transient blurry vision Compression of brain without herniation --CT head:There are shifting subdural homogeneously low attenuating collections, which is now increased on the right, and the prior left-sided subdural collection has resolved. There is now approximately 3 mm of leftward midline shift. These may represent chronic subdural hematomas or hygromas. -Recent ground-level fall on 04/01/25 leading to SDH Repeat head CT at [facility] [place] on 04/15 --> resolution of previously described subarachnoid and intraventricular hemorrhage S/p course of Keppra while at [facility] [place], no surgical intervention required --MRI Brain:No evidence of acute intracranial pathology. There is a right subdural fluid collection measuring 12.5 mm in maximal diameter causing 3.5 mm of midline shift to the left. --MRA Head:Negative MRA of the brain. --Neck MRA:Negative MRA of the neck. Neuro Checks Appreciate neurology input: No intervention currently needed, monitor Cervical stenosis at C5-C6 MRI Neck pending Consider orthopedic spine evaluation Decompensated FOFANA cirrhosis s/p TIPs w/ esophageal varices Recurrent ascites, history of SBP Waxing/waning mentation level in ED --> ? possible baseline Recently completed ABX course last month during admission at [facility] [place] for SBP -Last paracentesis done on 05/05 at [facility] [place] -Ascitic fluid cx grew Serratia marcescens susceptible to cefepime/Rocephin/cipro/gent/Bactrim -Was started on prophylactic cipro for SBP prevention as directed by hepatology CTAP: stable findings of cirrhosis, portal hypertension, and small amount of ascites. --Patient currently requiring weekly paracentesis per family: Advised to follow- up with hepatology as outpatient Completed IV Rocephin course Resuming home chronic suppressive ciprofloxacin therapy before for SBP prevention Continue home lactulose, Xifaxan Resume home diuretics as able Monitor volume status Palliative care consulted to address goals of care Plan for abd paracentesis by IR today Increased size of small R pleural effusion On 2L NC, resp status stable Continue to monitor for now Received IV Lasix Insulin-dependent DM II Hgb A1c 9.2% 1mo ago HbA1c 5.8 currently Continue insulin per protocol Appreciate glycemic pharm assistance Antineoplastic chemotherapy induced pancytopenia UDAY Continue iron supplementation Monitor CBC Gout Continue allopurinol GERD Continue PPI DVT Px: SCDs/TEDs Re: Hematuria, Anemia Code Status: DNR/DNI Disposition: Rehab as able Admission and Anticipated Discharge Date Admission Date: May 12, 2025 Subjective Patient is seen and examined at bedside Hematuria seems to be improving Has been sleeping most of the day Tried to reach patient's son over the phone--no answer States having abdominal pain overnight Denies any chest pain, dyspnea, nausea, vomiting, abdominal pain Plan for paracentesis today Creatinine, potassium levels rising again Review of Systems Review of Systems: All systems reviewed & are unremarkable except as noted in Subjective Physical Exam Physical Exam: Physical Exam: Vitals signs as noted above General Appearance:Thin, frail, no apparent distress, ill appearing Head: normocephalic, Atraumatic Eyes: normal inspection, EOMI Neck: supple, Trachea midline Respiratory/Chest: Normal breath sounds, CTA, No accessory muscle use Cardiovascular: S1, S2, No murmur Abdomen/GI:Soft, distended, Non tender,+umbilical hernia, Bowel sounds present Extremities/Musculoskeletal:normal inspection, Trace edema Neurologic/Psych:AAOX3, grossly no focal neurological deficits Skin: normal color, warm Results & Data Results & Data Vital Signs (Past 12 Hours) Vital Signs Temp Pulse Pulse Resp BP BP Pulse Ox 05/17/25 15:00 71 18 135/65 96 05/17/25 14:45 76 18 135/65 95 05/17/25 14:30 36.6 C 74 20 133/67 95 05/17/25 11:30 36.8 C 59 L 16 111/61 96 05/17/25 08:07 36.9 C 69 96 H 18 109/54 L 95 05/17/25 04:23 37.0 C 75 119/47 L 95 O2 Del Method 05/17/25 15:00 Room Air 05/17/25 14:45 Room Air 05/17/25 14:30 Room Air 05/17/25 11:30 Room Air 05/17/25 08:07 Room Air 05/17/25 04:23 Room Air Laboratory Results Short CBC 05/17/25 Range/Units 05:30 WBC 5.41 (4.8-10.8) K/ul Hgb 9.5 L (14.0-18.0) g/dl Hct 28.8 L (42.0-52.0) % Plt Count 86 L (130-400) K/uL BMP 05/17/25 05:30 Sodium 135 L Potassium 5.5 H Chloride 111 H Carbon Dioxide 17 L BUN 69 H Creatinine 2.18 H D Glucose 161 H Calcium 8.6 (1) Hematuria Hematuria type: unspecified type Qualified Code(s): R31.9 - Hematuria, unspecified
[2025-05-18 05:36] LABS: Hematocrit (blood only) 25.5 % (42.0-52.0); Hemoglobin 8.4 g/dl (14.0-18.0); Mean Corpuscular Hemoglobin 31.8 pg (25.0-34.0); Mean Corpuscular Hgb Conc 32.9 g/dL (32.0-36.0); Mean Corpuscular Volume 96.6 fL (80.0-100.0); Mean Platelet Volume 11.7 fL (9.4-12.4); Platelet Count 79 K/uL (130-400); RDW Coefficient of Variation 19.9 % (11.5-14.5); RDW Standard Deviation 70.2 fL (36.4-46.3); Red Blood Count 2.64 M/uL (4.70-6.10); White Blood Count 5.22 K/ul (4.8-10.8)
[2025-05-18 05:50] LABS: Calcium 8.4 mg/dl (8.6-10.3); Creatinine Clr Calc Pharmacy 21.4 ml/min; Magnesium 1.8 mg/dl (1.7-2.4); Potassium 4.7 mmol/L (3.5-5.1)
--- NOTE | 2025-05-18 10:13 | Nephrology Progress Note ---
Date of Service May 18, 2025 Assessment & Plan Admission and Anticipated Discharge Date Admission Date: May 12, 2025 Subjective Assessment & Plan (1) Acute kidney injury superimposed on stage 3a chronic kidney disease: He has many comorbid diseases and has very poor baseline health currently and has lot of recent health issues/Admission--bleeding, infection and so on with background decompensated FOFANA cirrhosis. more recent creat is high 1's and low 2's but few months back had normal creat. LUCRETIA cause likely from big drop in hgb to 6.2 causing hemodynamic LUCRETIA--he is very susceptible to this. NO workup needed for LUCRETIA as clearly from ATN/hemodynamic has ascites but not much edema. Continue Kan to avoid obstruction. Creat is rising again now and is up to 2.7--No dialysis needed and he would not be a candidate for such if need ever arise. reviewed palliative med Consult. (2) Gross hematuria: with low hgb and still has gross hematuria. recurrent issue. hgb still only 6.7. ? PRBC urology note reviewed. (3) Hyperkalemia: K normal today after iv lasix and Lokelma S-- Gross hematuria present ROS---very sluggish and sleepy and unable to get much history from patient. Physical Exam Physical Exam: General: Elderly, chronically ill-appearing. Sleepy and sluggish. HEENT: MM dry.neck Supple Respiratory: Normal respiratory effort, lungs clear to auscultation bilaterally. Cardiovascular: Regular rate and rhythm, normal peripheral pulses. No edema. Abdomen/GI: Ascites ++ Results & Data Vital Signs (Past 12 Hours) Vital Signs Temp Pulse Pulse Resp BP Pulse Ox O2 Del Method 05/18/25 09:17 Room Air 05/18/25 08:10 36.4 C L 89 16 120/55 L 94 Room Air 05/18/25 08:06 80 05/18/25 04:17 37.0 C 85 18 137/73 96 Room Air 05/17/25 23:30 36.6 C 80 18 127/63 95 Room Air
[2025-05-18] MEDS: DAPTOmycin 700 MG in SYRINGE 0 ML IV SCH (12:00)
[2025-05-18] MEDS: LANTUS PER UNIT CHARGE SC ONE (12:49)
--- NOTE | 2025-05-18 15:33 | Palliative Care Progress Note ---
Date of Service May 18, 2025 Assessment & Plan (1) Altered mental status: (2) Abdominal pain, generalized: (3) Advanced care planning/counseling discussion: Plan: Carlos is not decisionally competent. I called his son, Alex and left message on voicemail requesting a call back. (4) Palliative care by specialist: Plan As above. Thank you for allowing us to participate in the ongoing care of this patient. Please page with any additional concerns. Alicia Oneal DNP Director, Palliative Medicine Admission and Anticipated Discharge Date Admission Date: May 12, 2025 Subjective Carlos is seen in follow up he is well known to me from [facility] he is confused and unable to engage in visit today there is no family present Review of Systems Review of Systems: Unobtainable due to cognitive status Physical Exam Constitutional: + ill appearing, + thin, + frail appeari ng, cooperative, comfortable and + lethargic; no acute distress Eyes: PERRL, conjunctivae normal, anicteric sclerae ENMT: external ear and nose normal, oropharynx normal Respiratory: + uses accessory muscles, + tachypneic a nd + prolonged expiratory phase Cardiovascular: RRR, no murmur, no edema Gastrointestinal (Abdomen): Inspection/Auscultation: + abdomen distended and normal bowel sounds Percussion/Palpation: + abdomen tender and + abdomen firm Skin: no rashes, warm and dry Neurologic: alert to self, drifts off easily. confused Results & Data Vital Signs (Past 12 Hours) Vital Signs Temp Pulse Pulse Resp BP Pulse Ox O2 Del Method 05/18/25 11:23 36.5 C 90 16 137/67 98 Room Air 05/18/25 09:17 Room Air 05/18/25 08:10 36.4 C L 89 16 120/55 L 94 Room Air 05/18/25 08:06 80 05/18/25 04:17 37.0 C 85 18 137/73 96 Room Air Laboratory Results 05/18/25 05/18/25 05/18/25 Range/Units 11:52 11:51 07:57 WBC (4.8-10.8) K/ul RBC (4.70-6.10) M/uL Hgb (14.0-18.0) g/dl Hct (42.0-52.0) % MCV (80.0-100.0) fL MCH (25.0-34.0) pg MCHC (32.0-36.0) g/dL RDW Std Deviation (36.4-46.3) fL RDW Coeff of Violetta (11.5-14.5) % Plt Count (130-400) K/uL MPV (9.4-12.4) fL Immature Gran % (Auto) % Neut % (Auto) % Lymph % (Auto) % [place] % (Auto) % Eos % (Auto) % Baso % (Auto) % Neut # (Auto) (1.40-6.50) K/uL Lymph # (Auto) (1.20-3.40) K/uL [place] # (Auto) (0.11-0.59) K/uL Eos # (Auto) (0.00-0.50) K/uL Baso # (Auto) (0.00-0.20) K/uL Immature Gran # (Auto) (0.01-0.20) K/uL Polychromasia Anisocytosis Tear Drop Cells Ovalocytes PT (9.0-12.0) Seconds INR (0.9-1.1) Sodium (136-145) mmol/L Potassium (3.5-5.1) mmol/L Chloride (98-107) mmol/L Carbon Dioxide (21-32) mmol/L Anion Gap (3-11) BUN (6-23) mg/dl Creatinine (0.6-1.4) mg/dl Est Cr Clr Drug Dosing ml/min eGFR BUN/Creatinine Ratio (10-20) Glucose (70-99(Fasting)) mg/dl POC Glucose 314 H* 305 H* 173 H (70-99) mg/dl Estimat Average Glucose mg/dl Hemoglobin A1c (4.5-5.6) % Calcium (8.6-10.3) mg/dl Phosphorus (2.5-4.9) mg/dl Magnesium (1.7-2.4) mg/dl Total Bilirubin (0.2-1.0) mg/dl AST (13-39) U/L ALT (7-52) U/L Alkaline Phosphatase (34-104) U/L Ammonia (18-72) umol/L Total Protein (6.0-8.3) gm/dl Albumin (3.4-5.0) gm/dl Globulin (2.5-4.0) gm/dl Albumin/Globulin Ratio (0.9-2) Lipase (11-82) U/L Urine Color Urine Appearance (Clear) Urine pH (4.5-7.5) Ur Specific [place] (1.000-1.030) Urine Protein (Negative) Urine Glucose (UA) (Negative) Urine Ketones (Negative) Urine Blood (Negative) Urine Nitrite (Negative) Urine Bilirubin (Negative) Urine Urobilinogen (Negative) Ur Leukocyte Esterase (Negative) Urine RBC (0-2) /hpf Urine WBC (0-5) /hpf Ur Epithelial Cells (0-2) /hpf Urine Bacteria (None Seen) Urine Comment Nasal Screen MRSA (PCR) (Negative) Misc Micro Test Blood Type Antibody Screen Antibody Identification Antibody ID Referred Antibody ID Comment Direct Antiglob Test (Negative) ADDY (IgG-AHG) (Negative) ADDY, Polyspecific (Negative) ADDY C3b, C3d 5 Min (Negative) Crossmatch 05/18/25 05/17/25 05/17/25 Range/Units 05:22 20:12 16:21 WBC 5.22 (4.8-10.8) K/ul RBC 2.64 L (4.70-6.10) M/uL Hgb 8.4 L (14.0-18.0) g/dl Hct 25.5 L (42.0-52.0) % MCV 96.6 (80.0-100.0) fL MCH 31.8 (25.0-34.0) pg MCHC 32.9 (32.0-36.0) g/dL RDW Std Deviation 70.2 H (36.4-46.3) fL RDW Coeff of Violetta 19.9 H (11.5-14.5) % Plt Count 79 L (130-400) K/uL MPV 11.7 (9.4-12.4) fL Immature Gran % (Auto) % Neut % (Auto) % Lymph % (Auto) % [place] % (Auto) % Eos % (Auto) % Baso % (Auto) % Neut # (Auto) (1.40-6.50) K/uL Lymph # (Auto) (1.20-3.40) K/uL [place] # (Auto) (0.11-0.59) K/uL Eos # (Auto) (0.00-0.50) K/uL Baso # (Auto) (0.00-0.20) K/uL Immature Gran # (Auto) (0.01-0.20) K/uL Polychromasia Anisocytosis Tear Drop Cells Ovalocytes PT (9.0-12.0) Seconds INR (0.9-1.1) Sodium 133 L (136-145) mmol/L Potassium 4.7 (3.5-5.1) mmol/L Chloride 110 H (98-107) mmol/L Carbon Dioxide 16 L (21-32) mmol/L Anion Gap 7 (3-11) BUN 86 H (6-23) mg/dl Creatinine 2.69 H D (0.6-1.4) mg/dl Est Cr Clr Drug Dosing 21.4 ml/min eGFR 24.09 BUN/Creatinine Ratio 32.0 H (10-20) Glucose 161 H (70-99(Fasting)) mg/dl POC Glucose 219 H 97 (70-99) mg/dl Estimat Average Glucose mg/dl Hemoglobin A1c (4.5-5.6) % Calcium 8.4 L (8.6-10.3) mg/dl Phosphorus (2.5-4.9) mg/dl Magnesium 1.8 (1.7-2.4) mg/dl Total Bilirubin (0.2-1.0) mg/dl AST (13-39) U/L ALT (7-52) U/L Alkaline Phosphatase (34-104) U/L Ammonia 48.0 (18-72) umol/L Total Protein (6.0-8.3) gm/dl Albumin (3.4-5.0) gm/dl Globulin (2.5-4.0) gm/dl Albumin/Globulin Ratio (0.9-2) Lipase (11-82) U/L Urine Color Urine Appearance (Clear) Urine pH (4.5-7.5) Ur Specific [place] (1.000-1.030) Urine Protein (Negative) Urine Glucose (UA) (Negative) Urine Ketones (Negative) Urine Blood (Negative) Urine Nitrite (Negative) Urine Bilirubin (Negative) Urine Urobilinogen (Negative) Ur Leukocyte Esterase (Negative) Urine RBC (0-2) /hpf Urine WBC (0-5) /hpf Ur Epithelial Cells (0-2) /hpf Urine Bacteria (None Seen) Urine Comment Nasal Screen MRSA (PCR) (Negative) Misc Micro Test Blood Type Antibody Screen Antibody Identification Antibody ID Referred Antibody ID Comment Direct Antiglob Test (Negative) ADDY (IgG-AHG) (Negative) ADDY, Polyspecific (Negative) ADDY C3b, C3d 5 Min (Negative) Crossmatch 05/17/25 05/17/25 05/17/25 Range/Units 11:16 07:33 05:30 WBC 5.41 (4.8-10.8) K/ul RBC 3.02 L (4.70-6.10) M/uL Hgb 9.5 L (14.0-18.0) g/dl Hct 28.8 L (42.0-52.0) % MCV 95.4 (80.0-100.0) fL MCH 31.5 (25.0-34.0) pg MCHC 33.0 (32.0-36.0) g/dL RDW Std Deviation 68.1 H (36.4-46.3) fL RDW Coeff of Violetta 19.8 H (11.5-14.5) % Plt Count 86 L (130-400) K/uL MPV 10.7 (9.4-12.4) fL Immature Gran % (Auto) % Neut % (Auto) % Lymph % (Auto) % [place] % (Auto) % Eos % (Auto) % Baso % (Auto) % Neut # (Auto) (1.40-6.50) K/uL Lymph # (Auto) (1.20-3.40) K/uL [place] # (Auto) (0.11-0.59) K/uL Eos # (Auto) (0.00-0.50) K/uL Baso # (Auto) (0.00-0.20) K/uL Immature Gran # (Auto) (0.01-0.20) K/uL Polychromasia Anisocytosis Tear Drop Cells Ovalocytes PT (9.0-12.0) Seconds INR (0.9-1.1) Sodium 135 L (136-145) mmol/L Potassium 5.5 H (3.5-5.1) mmol/L Chloride 111 H (98-107) mmol/L Carbon Dioxide 17 L (21-32) mmol/L Anion Gap 7 (3-11) BUN 69 H (6-23) mg/dl Creatinine 2.18 H D (0.6-1.4) mg/dl Est Cr Clr Drug Dosing 27.1 ml/min eGFR 31.00 BUN/Creatinine Ratio 31.7 H (10-20) Glucose 161 H (70-99(Fasting)) mg/dl POC Glucose 189 H 80 (70-99) mg/dl Estimat Average Glucose mg/dl Hemoglobin A1c (4.5-5.6) % Calcium 8.6 (8.6-10.3) mg/dl Phosphorus (2.5-4.9) mg/dl Magnesium 1.7 (1.7-2.4) mg/dl Total Bilirubin (0.2-1.0) mg/dl AST (13-39) U/L ALT (7-52) U/L Alkaline Phosphatase (34-104) U/L Ammonia (18-72) umol/L Total Protein (6.0-8.3) gm/dl Albumin (3.4-5.0) gm/dl Globulin (2.5-4.0) gm/dl Albumin/Globulin Ratio (0.9-2) Lipase (11-82) U/L Urine Color Urine Appearance (Clear) Urine pH (4.5-7.5) Ur Specific [place] (1.000-1.030) Urine Protein (Negative) Urine Glucose (UA) (Negative) Urine Ketones (Negative) Urine Blood (Negative) Urine Nitrite (Negative) Urine Bilirubin (Negative) Urine Urobilinogen (Negative) Ur Leukocyte Esterase (Negative) Urine RBC (0-2) /hpf Urine WBC (0-5) /hpf Ur Epithelial Cells (0-2) /hpf Urine Bacteria (None Seen) Urine Comment Nasal Screen MRSA (PCR) (Negative) Misc Micro Test Blood Type Antibody Screen Antibody Identification Antibody ID Referred Antibody ID Comment Direct Antiglob Test (Negative) ADDY (IgG-AHG) (Negative) ADDY, Polyspecific (Negative) ADDY C3b, C3d 5 Min (Negative) Crossmatch 05/16/25 05/16/25 05/16/25 Range/Units 20:59 16:42 11:46 WBC (4.8-10.8) K/ul RBC (4.70-6.10) M/uL Hgb (14.0-18.0) g/dl Hct (42.0-52.0) % MCV (80.0-100.0) fL MCH (25.0-34.0) pg MCHC (32.0-36.0) g/dL RDW Std Deviation (36.4-46.3) fL RDW Coeff of Violetta (11.5-14.5) % Plt Count (130-400) K/uL MPV (9.4-12.4) fL Immature Gran % (Auto) % Neut % (Auto) % Lymph % (Auto) % [place] % (Auto) % Eos % (Auto) % Baso % (Auto) % Neut # (Auto) (1.40-6.50) K/uL Lymph # (Auto) (1.20-3.40) K/uL [place] # (Auto) (0.11-0.59) K/uL Eos # (Auto) (0.00-0.50) K/uL Baso # (Auto) (0.00-0.20) K/uL Immature Gran # (Auto) (0.01-0.20) K/uL Polychromasia Anisocytosis Tear Drop Cells Ovalocytes PT (9.0-12.0) Seconds INR (0.9-1.1) Sodium (136-145) mmol/L Potassium (3.5-5.1) mmol/L Chloride (98-107) mmol/L Carbon Dioxide (21-32) mmol/L Anion Gap (3-11) BUN (6-23) mg/dl Creatinine (0.6-1.4) mg/dl Est Cr Clr Drug Dosing ml/min eGFR BUN/Creatinine Ratio (10-20) Glucose (70-99(Fasting)) mg/dl POC Glucose 142 H 141 H 113 H (70-99) mg/dl Estimat Average Glucose mg/dl Hemoglobin A1c (4.5-5.6) % Calcium (8.6-10.3) mg/dl Phosphorus (2.5-4.9) mg/dl Magnesium (1.7-2.4) mg/dl Total Bilirubin (0.2-1.0) mg/dl AST (13-39) U/L ALT (7-52) U/L Alkaline Phosphatase (34-104) U/L Ammonia (18-72) umol/L Total Protein (6.0-8.3) gm/dl Albumin (3.4-5.0) gm/dl Globulin (2.5-4.0) gm/dl Albumin/Globulin Ratio (0.9-2) Lipase (11-82) U/L Urine Color Urine Appearance (Clear) Urine pH (4.5-7.5) Ur Specific [place] (1.000-1.030) Urine Protein (Negative) Urine Glucose (UA) (Negative) Urine Ketones (Negative) Urine Blood (Negative) Urine Nitrite (Negative) Urine Bilirubin (Negative) Urine Urobilinogen (Negative) Ur Leukocyte Esterase (Negative) Urine RBC (0-2) /hpf Urine WBC (0-5) /hpf Ur Epithelial Cells (0-2) /hpf Urine Bacteria (None Seen) Urine Comment Nasal Screen MRSA (PCR) (Negative) Misc Micro Test Blood Type Antibody Screen Antibody Identification Antibody ID Referred Antibody ID Comment Direct Antiglob Test (Negative) ADDY (IgG-AHG) (Negative) ADDY, Polyspecific (Negative) ADDY C3b, C3d 5 Min (Negative) Crossmatch 05/16/25 05/16/25 05/15/25 Range/Units 07:26 04:13 20:55 WBC 3.51 L (4.8-10.8) K/ul RBC 2.50 L (4.70-6.10) M/uL Hgb 7.8 L (14.0-18.0) g/dl Hct 23.8 L (42.0-52.0) % MCV 95.2 (80.0-100.0) fL MCH 31.2 (25.0-34.0) pg MCHC 32.8 (32.0-36.0) g/dL RDW Std Deviation 66.2 H (36.4-46.3) fL RDW Coeff of Violetta 19.1 H (11.5-14.5) % Plt Count 62 L (130-400) K/uL MPV 10.8 (9.4-12.4) fL Immature Gran % (Auto) % Neut % (Auto) % Lymph % (Auto) % [place] % (Auto) % Eos % (Auto) % Baso % (Auto) % Neut # (Auto) (1.40-6.50) K/uL Lymph # (Auto) (1.20-3.40) K/uL [place] # (Auto) (0.11-0.59) K/uL Eos # (Auto) (0.00-0.50) K/uL Baso # (Auto) (0.00-0.20) K/uL Immature Gran # (Auto) (0.01-0.20) K/uL Polychromasia Anisocytosis Tear Drop Cells Ovalocytes PT (9.0-12.0) Seconds INR (0.9-1.1) Sodium 133 L (136-145) mmol/L Potassium 4.6 (3.5-5.1) mmol/L Chloride 110 H (98-107) mmol/L Carbon Dioxide 18 L (21-32) mmol/L Anion Gap 5 (3-11) BUN 63 H (6-23) mg/dl Creatinine 1.85 H (0.6-1.4) mg/dl Est Cr Clr Drug Dosing 31.6 ml/min eGFR 37.75 BUN/Creatinine Ratio 34.1 H (10-20) Glucose 141 H (70-99(Fasting)) mg/dl POC Glucose 146 H 183 H (70-99) mg/dl Estimat Average Glucose mg/dl Hemoglobin A1c (4.5-5.6) % Calcium 8.5 L (8.6-10.3) mg/dl Phosphorus (2.5-4.9) mg/dl Magnesium (1.7-2.4) mg/dl Total Bilirubin (0.2-1.0) mg/dl AST (13-39) U/L ALT (7-52) U/L Alkaline Phosphatase (34-104) U/L Ammonia (18-72) umol/L Total Protein (6.0-8.3) gm/dl Albumin (3.4-5.0) gm/dl Globulin (2.5-4.0) gm/dl Albumin/Globulin Ratio (0.9-2) Lipase (11-82) U/L Urine Color Urine Appearance (Clear) Urine pH (4.5-7.5) Ur Specific [place] (1.000-1.030) Urine Protein (Negative) Urine Glucose (UA) (Negative) Urine Ketones (Negative) Urine Blood (Negative) Urine Nitrite (Negative) Urine Bilirubin (Negative) Urine Urobilinogen (Negative) Ur Leukocyte Esterase (Negative) Urine RBC (0-2) /hpf Urine WBC (0-5) /hpf Ur Epithelial Cells (0-2) /hpf Urine Bacteria (None Seen) Urine Comment Nasal Screen MRSA (PCR) (Negative) Misc Micro Test Blood Type Antibody Screen Antibody Identification Antibody ID Referred Antibody ID Comment Direct Antiglob Test (Negative) ADDY (IgG-AHG) (Negative) ADDY, Polyspecific (Negative) ADDY C3b, C3d 5 Min (Negative) Crossmatch 05/15/25 05/15/25 05/15/25 Range/Units 16:57 11:51 07:57 WBC (4.8-10.8) K/ul RBC (4.70-6.10) M/uL Hgb (14.0-18.0) g/dl Hct (42.0-52.0) % MCV (80.0-100.0) fL MCH (25.0-34.0) pg MCHC (32.0-36.0) g/dL RDW Std Deviation (36.4-46.3) fL RDW Coeff of [place] (11.5-14.5) % Plt Count (130-400) K/uL MPV (9.4-12.4) fL Immature Gran % (Auto) % Neut % (Auto) % Lymph % (Auto) % [place] % (Auto) % Eos % (Auto) % Baso % (Auto) % Neut # (Auto) (1.40-6.50) K/uL Lymph # (Auto) (1.20-3.40) K/uL [place] # (Auto) (0.11-0.59) K/uL Eos # (Auto) (0.00-0.50) K/uL Baso # (Auto) (0.00-0.20) K/uL Immature Gran # (Auto) (0.01-0.20) K/uL Polychromasia Anisocytosis Tear Drop Cells Ovalocytes PT (9.0-12.0) Seconds INR (0.9-1.1) Sodium (136-145) mmol/L Potassium (3.5-5.1) mmol/L Chloride (98-107) mmol/L Carbon Dioxide (21-32) mmol/L Anion Gap (3-11) BUN (6-23) mg/dl Creatinine (0.6-1.4) mg/dl Est Cr Clr Drug Dosing ml/min eGFR BUN/Creatinine Ratio (10-20) Glucose (70-99(Fasting)) mg/dl POC Glucose 175 H 126 H 88 (70-99) mg/dl Estimat Average Glucose mg/dl Hemoglobin A1c (4.5-5.6) % Calcium (8.6-10.3) mg/dl Phosphorus (2.5-4.9) mg/dl Magnesium (1.7-2.4) mg/dl Total Bilirubin (0.2-1.0) mg/dl AST (13-39) U/L ALT (7-52) U/L Alkaline Phosphatase (34-104) U/L Ammonia (18-72) umol/L Total Protein (6.0-8.3) gm/dl Albumin (3.4-5.0) gm/dl Globulin (2.5-4.0) gm/dl Albumin/Globulin Ratio (0.9-2) Lipase (11-82) U/L Urine Color Urine Appearance (Clear) Urine pH (4.5-7.5) Ur Specific [place] (1.000-1.030) Urine Protein (Negative) Urine Glucose (UA) (Negative) Urine Ketones (Negative) Urine Blood (Negative) Urine Nitrite (Negative) Urine Bilirubin (Negative) Urine Urobilinogen (Negative) Ur Leukocyte Esterase (Negative) Urine RBC (0-2) /hpf Urine WBC (0-5) /hpf Ur Epithelial Cells (0-2) /hpf Urine Bacteria (None Seen) Urine Comment Nasal Screen MRSA (PCR) (Negative) Misc Micro Test Blood Type Antibody Screen Antibody Identification Antibody ID Referred Antibody ID Comment Direct Antiglob Test (Negative) ADDY (IgG-AHG) (Negative) ADDY, Polyspecific (Negative) ADDY C3b, C3d 5 Min (Negative) Crossmatch 05/15/25 05/14/25 05/14/25 Range/Units 05:42 20:50 20:44 WBC 2.94 L (4.8-10.8) K/ul RBC 2.55 L (4.70-6.10) M/uL Hgb 8.0 L 8.2 L (14.0-18.0) g/dl Hct 25.5 L 25.0 L (42.0-52.0) % MCV 100.0 (80.0-100.0) fL MCH 31.4 (25.0-34.0) pg MCHC 31.4 L (32.0-36.0) g/dL RDW Std Deviation 68.1 H (36.4-46.3) fL RDW Coeff of [place] 18.9 H (11.5-14.5) % Plt Count 61 L (130-400) K/uL MPV 11.7 (9.4-12.4) fL Immature Gran % (Auto) % Neut % (Auto) % Lymph % (Auto) % [place] % (Auto) % Eos % (Auto) % Baso % (Auto) % Neut # (Auto) (1.40-6.50) K/uL Lymph # (Auto) (1.20-3.40) K/uL [place] # (Auto) (0.11-0.59) K/uL Eos # (Auto) (0.00-0.50) K/uL Baso # (Auto) (0.00-0.20) K/uL Immature Gran # (Auto) (0.01-0.20) K/uL Polychromasia Anisocytosis Tear Drop Cells Ovalocytes PT (9.0-12.0) Seconds INR (0.9-1.1) Sodium 138 (136-145) mmol/L Potassium 4.9 (3.5-5.1) mmol/L Chloride 114 H (98-107) mmol/L Carbon Dioxide 20 L (21-32) mmol/L Anion Gap 4 (3-11) BUN 64 H (6-23) mg/dl Creatinine 2.02 H (0.6-1.4) mg/dl Est Cr Clr Drug Dosing 28.9 ml/min eGFR 33.97 BUN/Creatinine Ratio 31.7 H (10-20) Glucose 89 (70-99(Fasting)) mg/dl POC Glucose 111 H (70-99) mg/dl Estimat Average Glucose mg/dl Hemoglobin A1c (4.5-5.6) % Calcium 8.6 (8.6-10.3) mg/dl Phosphorus (2.5-4.9) mg/dl Magnesium (1.7-2.4) mg/dl Total Bilirubin (0.2-1.0) mg/dl AST (13-39) U/L ALT (7-52) U/L Alkaline Phosphatase (34-104) U/L Ammonia (18-72) umol/L Total Protein (6.0-8.3) gm/dl Albumin (3.4-5.0) gm/dl Globulin (2.5-4.0) gm/dl Albumin/Globulin Ratio (0.9-2) Lipase (11-82) U/L Urine Color Urine Appearance (Clear) Urine pH (4.5-7.5) Ur Specific [place] (1.000-1.030) Urine Protein (Negative) Urine Glucose (UA) (Negative) Urine Ketones (Negative) Urine Blood (Negative) Urine Nitrite (Negative) Urine Bilirubin (Negative) Urine Urobilinogen (Negative) Ur Leukocyte Esterase (Negative) Urine RBC (0-2) /hpf Urine WBC (0-5) /hpf Ur Epithelial Cells (0-2) /hpf Urine Bacteria (None Seen) Urine Comment Nasal Screen MRSA (PCR) (Negative) Misc Micro Test Blood Type Antibody Screen Antibody Identification Antibody ID Referred Antibody ID Comment Direct Antiglob Test (Negative) ADDY (IgG-AHG) (Negative) ADDY, Polyspecific (Negative) ADDY C3b, C3d 5 Min (Negative) Crossmatch 05/14/25 05/14/25 05/14/25 Range/Units 16:35 14:37 11:39 WBC (4.8-10.8) K/ul RBC (4.70-6.10) M/uL Hgb 8.2 L (14.0-18.0) g/dl Hct 24.5 L (42.0-52.0) % MCV (80.0-100.0) fL MCH (25.0-34.0) pg MCHC (32.0-36.0) g/dL RDW Std Deviation (36.4-46.3) fL RDW Coeff of [place] (11.5-14.5) % Plt Count (130-400) K/uL MPV (9.4-12.4) fL Immature Gran % (Auto) % Neut % (Auto) % Lymph % (Auto) % [place] % (Auto) % Eos % (Auto) % Baso % (Auto) % Neut # (Auto) (1.40-6.50) K/uL Lymph # (Auto) (1.20-3.40) K/uL [place] # (Auto) (0.11-0.59) K/uL Eos # (Auto) (0.00-0.50) K/uL Baso # (Auto) (0.00-0.20) K/uL Immature Gran # (Auto) (0.01-0.20) K/uL Polychromasia Anisocytosis Tear Drop Cells Ovalocytes PT (9.0-12.0) Seconds INR (0.9-1.1) Sodium (136-145) mmol/L Potassium (3.5-5.1) mmol/L Chloride (98-107) mmol/L Carbon Dioxide (21-32) mmol/L Anion Gap (3-11) BUN (6-23) mg/dl Creatinine (0.6-1.4) mg/dl Est Cr Clr Drug Dosing ml/min eGFR BUN/Creatinine Ratio (10-20) Glucose (70-99(Fasting)) mg/dl POC Glucose 203 H 239 H (70-99) mg/dl Estimat Average Glucose mg/dl Hemoglobin A1c (4.5-5.6) % Calcium (8.6-10.3) mg/dl Phosphorus (2.5-4.9) mg/dl Magnesium (1.7-2.4) mg/dl Total Bilirubin (0.2-1.0) mg/dl AST (13-39) U/L ALT (7-52) U/L Alkaline Phosphatase (34-104) U/L Ammonia (18-72) umol/L Total Protein (6.0-8.3) gm/dl Albumin (3.4-5.0) gm/dl Globulin (2.5-4.0) gm/dl Albumin/Globulin Ratio (0.9-2) Lipase (11-82) U/L Urine Color Urine Appearance (Clear) Urine pH (4.5-7.5) Ur Specific [place] (1.000-1.030) Urine Protein (Negative) Urine Glucose (UA) (Negative) Urine Ketones (Negative) Urine Blood (Negative) Urine Nitrite (Negative) Urine Bilirubin (Negative) Urine Urobilinogen (Negative) Ur Leukocyte Esterase (Negative) Urine RBC (0-2) /hpf Urine WBC (0-5) /hpf Ur Epithelial Cells (0-2) /hpf Urine Bacteria (None Seen) Urine Comment Nasal Screen MRSA (PCR) (Negative) Misc Micro Test Blood Type Antibody Screen Antibody Identification Antibody ID Referred Antibody ID Comment Direct Antiglob Test (Negative) ADDY (IgG-AHG) (Negative) ADDY, Polyspecific (Negative) ADDY C3b, C3d 5 Min (Negative) Crossmatch 05/14/25 05/14/25 05/14/25 Range/Units 07:32 04:25 00:06 WBC 3.65 L (4.8-10.8) K/ul RBC 2.16 L (4.70-6.10) M/uL Hgb 6.7 L* 7.0 L (14.0-18.0) g/dl Hct 20.8 L* 22.0 L (42.0-52.0) % MCV 96.3 (80.0-100.0) fL MCH 31.0 (25.0-34.0) pg MCHC 32.2 (32.0-36.0) g/dL RDW Std Deviation 71.1 H (36.4-46.3) fL RDW Coeff of Violetta 20.5 H (11.5-14.5) % Plt Count 65 L (130-400) K/uL MPV 10.6 (9.4-12.4) fL Immature Gran % (Auto) % Neut % (Auto) % Lymph % (Auto) % [place] % (Auto) % Eos % (Auto) % Baso % (Auto) % Neut # (Auto) (1.40-6.50) K/uL Lymph # (Auto) (1.20-3.40) K/uL [place] # (Auto) (0.11-0.59) K/uL Eos # (Auto) (0.00-0.50) K/uL Baso # (Auto) (0.00-0.20) K/uL Immature Gran # (Auto) (0.01-0.20) K/uL Polychromasia Anisocytosis Tear Drop Cells Ovalocytes PT (9.0-12.0) Seconds INR (0.9-1.1) Sodium 136 (136-145) mmol/L Potassium 5.1 (3.5-5.1) mmol/L Chloride 112 H (98-107) mmol/L Carbon Dioxide 20 L (21-32) mmol/L Anion Gap 4 (3-11) BUN 67 H (6-23) mg/dl Creatinine 2.12 H (0.6-1.4) mg/dl Est Cr Clr Drug Dosing 27.6 ml/min eGFR 32.06 BUN/Creatinine Ratio 31.6 H (10-20) Glucose 144 H (70-99(Fasting)) mg/dl POC Glucose 144 H (70-99) mg/dl Estimat Average Glucose mg/dl Hemoglobin A1c (4.5-5.6) % Calcium 8.6 (8.6-10.3) mg/dl Phosphorus (2.5-4.9) mg/dl Magnesium (1.7-2.4) mg/dl Total Bilirubin (0.2-1.0) mg/dl AST (13-39) U/L ALT (7-52) U/L Alkaline Phosphatase (34-104) U/L Ammonia (18-72) umol/L Total Protein (6.0-8.3) gm/dl Albumin (3.4-5.0) gm/dl Globulin (2.5-4.0) gm/dl Albumin/Globulin Ratio (0.9-2) Lipase (11-82) U/L Urine Color Urine Appearance (Clear) Urine pH (4.5-7.5) Ur Specific [place] (1.000-1.030) Urine Protein (Negative) Urine Glucose (UA) (Negative) Urine Ketones (Negative) Urine Blood (Negative) Urine Nitrite (Negative) Urine Bilirubin (Negative) Urine Urobilinogen (Negative) Ur Leukocyte Esterase (Negative) Urine RBC (0-2) /hpf Urine WBC (0-5) /hpf Ur Epithelial Cells (0-2) /hpf Urine Bacteria (None Seen) Urine Comment Nasal Screen MRSA (PCR) (Negative) Misc Micro Test Blood Type Antibody Screen Antibody Identification Antibody ID Referred Antibody ID Comment Direct Antiglob Test (Negative) ADDY (IgG-AHG) (Negative) ADDY, Polyspecific (Negative) ADDY C3b, C3d 5 Min (Negative) Crossmatch 06/12/25 06/12/25 06/12/25 Range/Units Unknown 20:05 18:51 WBC (4.8-10.8) K/ul RBC (4.70-6.10) M/uL Hgb 7.4 L (14.0-18.0) g/dl Hct 23.0 L (42.0-52.0) % MCV (80.0-100.0) fL MCH (25.0-34.0) pg MCHC (32.0-36.0) g/dL RDW Std Deviation (36.4-46.3) fL RDW Coeff of Violetta (11.5-14.5) % Plt Count (130-400) K/uL MPV (9.4-12.4) fL Immature Gran % (Auto) % Neut % (Auto) % Lymph % (Auto) % [place] % (Auto) % Eos % (Auto) % Baso % (Auto) % Neut # (Auto) (1.40-6.50) K/uL Lymph # (Auto) (1.20-3.40) K/uL [place] # (Auto) (0.11-0.59) K/uL Eos # (Auto) (0.00-0.50) K/uL Baso # (Auto) (0.00-0.20) K/uL Immature Gran # (Auto) (0.01-0.20) K/uL Polychromasia Anisocytosis Tear Drop Cells Ovalocytes PT (9.0-12.0) Seconds INR (0.9-1.1) Sodium 135 L (136-145) mmol/L Potassium 5.6 H (3.5-5.1) mmol/L Chloride 111 H (98-107) mmol/L Carbon Dioxide 19 L (21-32) mmol/L Anion Gap 5 (3-11) BUN 67 H (6-23) mg/dl Creatinine 2.12 H (0.6-1.4) mg/dl Est Cr Clr Drug Dosing 27.6 ml/min eGFR 32.06 BUN/Creatinine Ratio 31.6 H (10-20) Glucose 164 H (70-99(Fasting)) mg/dl POC Glucose 218 H (70-99) mg/dl Estimat Average Glucose mg/dl Hemoglobin A1c (4.5-5.6) % Calcium 8.7 (8.6-10.3) mg/dl Phosphorus (2.5-4.9) mg/dl Magnesium (1.7-2.4) mg/dl Total Bilirubin (0.2-1.0) mg/dl AST (13-39) U/L ALT (7-52) U/L Alkaline Phosphatase (34-104) U/L Ammonia (18-72) umol/L Total Protein (6.0-8.3) gm/dl Albumin (3.4-5.0) gm/dl Globulin (2.5-4.0) gm/dl Albumin/Globulin Ratio (0.9-2) Lipase (11-82) U/L Urine Color Urine Appearance (Clear) Urine pH (4.5-7.5) Ur Specific [place] (1.000-1.030) Urine Protein (Negative) Urine Glucose (UA) (Negative) Urine Ketones (Negative) Urine Blood (Negative) Urine Nitrite (Negative) Urine Bilirubin (Negative) Urine Urobilinogen (Negative) Ur Leukocyte Esterase (Negative) Urine RBC (0-2) /hpf Urine WBC (0-5) /hpf Ur Epithelial Cells (0-2) /hpf Urine Bacteria (None Seen) Urine Comment Nasal Screen MRSA (PCR) Negative (Negative) Misc Micro Test Blood Type Antibody Screen Antibody Identification Antibody ID Referred Antibody ID Comment Direct Antiglob Test (Negative) ADDY (IgG-AHG) (Negative) ADDY, Polyspecific (Negative) ADDY C3b, C3d 5 Min (Negative) Crossmatch 05/13/25 05/13/25 05/13/25 Range/Units 16:58 12:52 11:58 WBC (4.8-10.8) K/ul RBC (4.70-6.10) M/uL Hgb 6.3 L* (14.0-18.0) g/dl Hct 19.9 L* (42.0-52.0) % MCV (80.0-100.0) fL MCH (25.0-34.0) pg MCHC (32.0-36.0) g/dL RDW Std Deviation (36.4-46.3) fL RDW Coeff of Violetta (11.5-14.5) % Plt Count (130-400) K/uL MPV (9.4-12.4) fL Immature Gran % (Auto) % Neut % (Auto) % Lymph % (Auto) % [place] % (Auto) % Eos % (Auto) % Baso % (Auto) % Neut # (Auto) (1.40-6.50) K/uL Lymph # (Auto) (1.20-3.40) K/uL [place] # (Auto) (0.11-0.59) K/uL Eos # (Auto) (0.00-0.50) K/uL Baso # (Auto) (0.00-0.20) K/uL Immature Gran # (Auto) (0.01-0.20) K/uL Polychromasia Anisocytosis Tear Drop Cells Ovalocytes PT (9.0-12.0) Seconds INR (0.9-1.1) Sodium (136-145) mmol/L Potassium (3.5-5.1) mmol/L Chloride (98-107) mmol/L Carbon Dioxide (21-32) mmol/L Anion Gap (3-11) BUN (6-23) mg/dl Creatinine (0.6-1.4) mg/dl Est Cr Clr Drug Dosing ml/min eGFR BUN/Creatinine Ratio (10-20) Glucose (70-99(Fasting)) mg/dl POC Glucose 115 H 126 H (70-99) mg/dl Estimat Average Glucose mg/dl Hemoglobin A1c (4.5-5.6) % Calcium (8.6-10.3) mg/dl Phosphorus (2.5-4.9) mg/dl Magnesium (1.7-2.4) mg/dl Total Bilirubin (0.2-1.0) mg/dl AST (13-39) U/L ALT (7-52) U/L Alkaline Phosphatase (34-104) U/L Ammonia (18-72) umol/L Total Protein (6.0-8.3) gm/dl Albumin (3.4-5.0) gm/dl Globulin (2.5-4.0) gm/dl Albumin/Globulin Ratio (0.9-2) Lipase (11-82) U/L Urine Color Urine Appearance (Clear) Urine pH (4.5-7.5) Ur Specific [place] (1.000-1.030) Urine Protein (Negative) Urine Glucose (UA) (Negative) Urine Ketones (Negative) Urine Blood (Negative) Urine Nitrite (Negative) Urine Bilirubin (Negative) Urine Urobilinogen (Negative) Ur Leukocyte Esterase (Negative) Urine RBC (0-2) /hpf Urine WBC (0-5) /hpf Ur Epithelial Cells (0-2) /hpf Urine Bacteria (None Seen) Urine Comment Nasal Screen MRSA (PCR) (Negative) Misc Micro Test Blood Type Antibody Screen Antibody Identification Antibody ID Referred Antibody ID Comment Direct Antiglob Test (Negative) ADDY (IgG-AHG) (Negative) ADYD, Polyspecific (Negative) ADDY C3b, C3d 5 Min (Negative) Crossmatch 05/13/25 05/13/25 05/12/25 Range/Units 07:57 04:52 22:56 WBC 3.61 L (4.8-10.8) K/ul RBC 2.21 L (4.70-6.10) M/uL Hgb 7.0 L 6.4 L* (14.0-18.0) g/dl Hct 21.9 L 19.8 L* (42.0-52.0) % MCV 99.1 (80.0-100.0) fL MCH 31.7 (25.0-34.0) pg MCHC 32.0 (32.0-36.0) g/dL RDW Std Deviation 73.9 H (36.4-46.3) fL RDW Coeff of Violetta 20.8 H (11.5-14.5) % Plt Count 62 L (130-400) K/uL MPV 11.3 (9.4-12.4) fL Immature Gran % (Auto) % Neut % (Auto) % Lymph % (Auto) % [place] % (Auto) % Eos % (Auto) % Baso % (Auto) % Neut # (Auto) (1.40-6.50) K/uL Lymph # (Auto) (1.20-3.40) K/uL [place] # (Auto) (0.11-0.59) K/uL Eos # (Auto) (0.00-0.50) K/uL Baso # (Auto) (0.00-0.20) K/uL Immature Gran # (Auto) (0.01-0.20) K/uL Polychromasia 1+ Anisocytosis Present Tear Drop Cells Ovalocytes 1+ PT (9.0-12.0) Seconds INR (0.9-1.1) Sodium 138 (136-145) mmol/L Potassium 5.6 H (3.5-5.1) mmol/L Chloride 114 H (98-107) mmol/L Carbon Dioxide 20 L (21-32) mmol/L Anion Gap 4 (3-11) BUN 68 H (6-23) mg/dl Creatinine 2.05 H (0.6-1.4) mg/dl Est Cr Clr Drug Dosing 28.6 ml/min eGFR 33.37 BUN/Creatinine Ratio 33.2 H (10-20) Glucose 61 L (70-99(Fasting)) mg/dl POC Glucose 74 (70-99) mg/dl Estimat Average Glucose 120 mg/dl Hemoglobin A1c 5.8 H (4.5-5.6) % Calcium 8.9 (8.6-10.3) mg/dl Phosphorus 4.7 (2.5-4.9) mg/dl Magnesium 1.6 L (1.7-2.4) mg/dl Total Bilirubin 1.5 H (0.2-1.0) mg/dl AST 58 H (13-39) U/L ALT 34 (7-52) U/L Alkaline Phosphatase 384 H (34-104) U/L Ammonia (18-72) umol/L Total Protein 7.0 (6.0-8.3) gm/dl Albumin 2.5 L (3.4-5.0) gm/dl Globulin 4.5 H (2.5-4.0) gm/dl Albumin/Globulin Ratio 0.6 L (0.9-2) Lipase (11-82) U/L Urine Color Urine Appearance (Clear) Urine pH (4.5-7.5) Ur Specific [place] (1.000-1.030) Urine Protein (Negative) Urine Glucose (UA) (Negative) Urine Ketones (Negative) Urine Blood (Negative) Urine Nitrite (Negative) Urine Bilirubin (Negative) Urine Urobilinogen (Negative) Ur Leukocyte Esterase (Negative) Urine RBC (0-2) /hpf Urine WBC (0-5) /hpf Ur Epithelial Cells (0-2) /hpf Urine Bacteria (None Seen) Urine Comment Nasal Screen MRSA (PCR) (Negative) Misc Micro Test Blood Type Antibody Screen Antibody Identification Antibody ID Referred Antibody ID Comment Direct Antiglob Test (Negative) ADDY (IgG-AHG) (Negative) ADDY, Polyspecific (Negative) ADDY C3b, C3d 5 Min (Negative) Crossmatch 05/12/25 05/12/25 05/12/25 Range/Units 20:17 17:38 16:05 WBC (4.8-10.8) K/ul RBC (4.70-6.10) M/uL Hgb 6.2 L* (14.0-18.0) g/dl Hct 19.6 L* (42.0-52.0) % MCV (80.0-100.0) fL MCH (25.0-34.0) pg MCHC (32.0-36.0) g/dL RDW Std Deviation (36.4-46.3) fL RDW Coeff of Violetta (11.5-14.5) % Plt Count (130-400) K/uL MPV (9.4-12.4) fL Immature Gran % (Auto) % Neut % (Auto) % Lymph % (Auto) % [place] % (Auto) % Eos % (Auto) % Baso % (Auto) % Neut # (Auto) (1.40-6.50) K/uL Lymph # (Auto) (1.20-3.40) K/uL [place] # (Auto) (0.11-0.59) K/uL Eos # (Auto) (0.00-0.50) K/uL Baso # (Auto) (0.00-0.20) K/uL Immature Gran # (Auto) (0.01-0.20) K/uL Polychromasia Anisocytosis Tear Drop Cells Ovalocytes PT (9.0-12.0) Seconds INR (0.9-1.1) Sodium 136 (136-145) mmol/L Potassium 5.3 H (3.5-5.1) mmol/L Chloride 112 H (98-107) mmol/L Carbon Dioxide 19 L (21-32) mmol/L Anion Gap 5 (3-11) BUN 66 H (6-23) mg/dl Creatinine 2.13 H (0.6-1.4) mg/dl Est Cr Clr Drug Dosing 27.2 ml/min eGFR 31.87 BUN/Creatinine Ratio 31.0 H (10-20) Glucose 151 H (70-99(Fasting)) mg/dl POC Glucose 252 H (70-99) mg/dl Estimat Average Glucose mg/dl Hemoglobin A1c (4.5-5.6) % Calcium 9.1 (8.6-10.3) mg/dl Phosphorus (2.5-4.9) mg/dl Magnesium (1.7-2.4) mg/dl Total Bilirubin (0.2-1.0) mg/dl AST (13-39) U/L ALT (7-52) U/L Alkaline Phosphatase (34-104) U/L Ammonia (18-72) umol/L Total Protein (6.0-8.3) gm/dl Albumin (3.4-5.0) gm/dl Globulin (2.5-4.0) gm/dl Albumin/Globulin Ratio (0.9-2) Lipase (11-82) U/L Urine Color Urine Appearance (Clear) Urine pH (4.5-7.5) Ur Specific [place] (1.000-1.030) Urine Protein (Negative) Urine Glucose (UA) (Negative) Urine Ketones (Negative) Urine Blood (Negative) Urine Nitrite (Negative) Urine Bilirubin (Negative) Urine Urobilinogen (Negative) Ur Leukocyte Esterase (Negative) Urine RBC (0-2) /hpf Urine WBC (0-5) /hpf Ur Epithelial Cells (0-2) /hpf Urine Bacteria (None Seen) Urine Comment Nasal Screen MRSA (PCR) (Negative) Misc Micro Test Blood Type Antibody Screen Antibody Identification Antibody ID Referred Antibody ID Comment Direct Antiglob Test (Negative) ADDY (IgG-AHG) (Negative) ADDY, Polyspecific (Negative) ADDY C3b, C3d 5 Min (Negative) Crossmatch 05/12/25 05/12/25 05/12/25 Range/Units 15:37 13:21 10:26 WBC (4.8-10.8) K/ul RBC (4.70-6.10) M/uL Hgb (14.0-18.0) g/dl Hct (42.0-52.0) % MCV (80.0-100.0) fL MCH (25.0-34.0) pg MCHC (32.0-36.0) g/dL RDW Std Deviation (36.4-46.3) fL RDW Coeff of Violetta (11.5-14.5) % Plt Count (130-400) K/uL MPV (9.4-12.4) fL Immature Gran % (Auto) % Neut % (Auto) % Lymph % (Auto) % [place] % (Auto) % Eos % (Auto) % Baso % (Auto) % Neut # (Auto) (1.40-6.50) K/uL Lymph # (Auto) (1.20-3.40) K/uL [place] # (Auto) (0.11-0.59) K/uL Eos # (Auto) (0.00-0.50) K/uL Baso # (Auto) (0.00-0.20) K/uL Immature Gran # (Auto) (0.01-0.20) K/uL Polychromasia Anisocytosis Tear Drop Cells Ovalocytes PT (9.0-12.0) Seconds INR (0.9-1.1) Sodium Cancelled (136-145) mmol/L Potassium Cancelled (3.5-5.1) mmol/L Chloride Cancelled (98-107) mmol/L Carbon Dioxide Cancelled (21-32) mmol/L Anion Gap Cancelled (3-11) BUN Cancelled (6-23) mg/dl Creatinine Cancelled (0.6-1.4) mg/dl Est Cr Clr Drug Dosing Cancelled ml/min eGFR Cancelled BUN/Creatinine Ratio Cancelled (10-20) Glucose Cancelled (70-99(Fasting)) mg/dl POC Glucose (70-99) mg/dl Estimat Average Glucose mg/dl Hemoglobin A1c (4.5-5.6) % Calcium Cancelled (8.6-10.3) mg/dl Phosphorus (2.5-4.9) mg/dl Magnesium (1.7-2.4) mg/dl Total Bilirubin (0.2-1.0) mg/dl AST (13-39) U/L ALT (7-52) U/L Alkaline Phosphatase (34-104) U/L Ammonia 47.0 (18-72) umol/L Total Protein (6.0-8.3) gm/dl Albumin (3.4-5.0) gm/dl Globulin (2.5-4.0) gm/dl Albumin/Globulin Ratio (0.9-2) Lipase (11-82) U/L Urine Color Urine Appearance (Clear) Urine pH (4.5-7.5) Ur Specific [place] (1.000-1.030) Urine Protein (Negative) Urine Glucose (UA) (Negative) Urine Ketones (Negative) Urine Blood (Negative) Urine Nitrite (Negative) Urine Bilirubin (Negative) Urine Urobilinogen (Negative) Ur Leukocyte Esterase (Negative) Urine RBC (0-2) /hpf Urine WBC (0-5) /hpf Ur Epithelial Cells (0-2) /hpf Urine Bacteria (None Seen) Urine Comment Nasal Screen MRSA (PCR) (Negative) Misc Micro Test Blood Type Antibody Screen Antibody Identification VS Antibody ID Referred Antibody ID Comment TNP Direct Antiglob Test Positive A (Negative) ADDY (IgG-AHG) 2+ A (Negative) ADDY, Polyspecific 2+ A (Negative) ADDY C3b, C3d 5 Min Neg (Negative) Crossmatch See Detail 05/12/25 05/12/25 05/12/25 Range/Units 10:26 10:26 10:26 WBC (4.8-10.8) K/ul RBC (4.70-6.10) M/uL Hgb (14.0-18.0) g/dl Hct (42.0-52.0) % MCV (80.0-100.0) fL MCH (25.0-34.0) pg MCHC (32.0-36.0) g/dL RDW Std Deviation (36.4-46.3) fL RDW Coeff of Violetta (11.5-14.5) % Plt Count (130-400) K/uL MPV (9.4-12.4) fL Immature Gran % (Auto) % Neut % (Auto) % Lymph % (Auto) % [place] % (Auto) % Eos % (Auto) % Baso % (Auto) % Neut # (Auto) (1.40-6.50) K/uL Lymph # (Auto) (1.20-3.40) K/uL [place] # (Auto) (0.11-0.59) K/uL Eos # (Auto) (0.00-0.50) K/uL Baso # (Auto) (0.00-0.20) K/uL Immature Gran # (Auto) (0.01-0.20) K/uL Polychromasia Anisocytosis Tear Drop Cells Ovalocytes PT (9.0-12.0) Seconds INR (0.9-1.1) Sodium (136-145) mmol/L Potassium (3.5-5.1) mmol/L Chloride (98-107) mmol/L Carbon Dioxide (21-32) mmol/L Anion Gap (3-11) BUN (6-23) mg/dl Creatinine (0.6-1.4) mg/dl Est Cr Clr Drug Dosing ml/min eGFR BUN/Creatinine Ratio (10-20) Glucose (70-99(Fasting)) mg/dl POC Glucose (70-99) mg/dl Estimat Average Glucose mg/dl Hemoglobin A1c (4.5-5.6) % Calcium (8.6-10.3) mg/dl Phosphorus (2.5-4.9) mg/dl Magnesium (1.7-2.4) mg/dl Total Bilirubin (0.2-1.0) mg/dl AST (13-39) U/L ALT (7-52) U/L Alkaline Phosphatase (34-104) U/L Ammonia (18-72) umol/L Total Protein (6.0-8.3) gm/dl Albumin (3.4-5.0) gm/dl Globulin (2.5-4.0) gm/dl Albumin/Globulin Ratio (0.9-2) Lipase (11-82) U/L Urine Color Urine Appearance (Clear) Urine pH (4.5-7.5) Ur Specific [place] (1.000-1.030) Urine Protein (Negative) Urine Glucose (UA) (Negative) Urine Ketones (Negative) Urine Blood (Negative) Urine Nitrite (Negative) Urine Bilirubin (Negative) Urine Urobilinogen (Negative) Ur Leukocyte Esterase (Negative) Urine RBC (0-2) /hpf Urine WBC (0-5) /hpf Ur Epithelial Cells (0-2) /hpf Urine Bacteria (None Seen) Urine Comment Nasal Screen MRSA (PCR) (Negative) Misc Micro Test Blood Type O Positive Antibody Screen POSITIVE A Antibody Identification Anti-V Anti-C Auto Benavidez Agglutinin Antibody ID Referred Antibody ID Comment Direct Antiglob Test (Negative) ADDY (IgG-AHG) (Negative) ADDY, Polyspecific (Negative) ADDY C3b, C3d 5 Min (Negative) Crossmatch 05/12/25 05/12/25 Range/Units 09:25 09:20 WBC 3.13 L (4.8-10.8) K/ul RBC 2.05 L (4.70-6.10) M/uL Hgb 6.8 L* (14.0-18.0) g/dl Hct 20.9 L* (42.0-52.0) % MCV 102.0 H (80.0-100.0) fL MCH 33.2 (25.0-34.0) pg MCHC 32.5 (32.0-36.0) g/dL RDW Std Deviation 77.7 H (36.4-46.3) fL RDW Coeff of Violetta 20.8 H (11.5-14.5) % Plt Count 80 L (130-400) K/uL MPV 12.4 (9.4-12.4) fL Immature Gran % (Auto) 1.0 % Neut % (Auto) 77.9 % Lymph % (Auto) 10.5 % [place] % (Auto) 4.5 % Eos % (Auto) 5.8 % Baso % (Auto) 0.3 % Neut # (Auto) 2.44 (1.40-6.50) K/uL Lymph # (Auto) 0.33 L (1.20-3.40) K/uL [place] # (Auto) 0.14 (0.11-0.59) K/uL Eos # (Auto) 0.18 (0.00-0.50) K/uL Baso # (Auto) 0.01 (0.00-0.20) K/uL Immature Gran # (Auto) 0.03 (0.01-0.20) K/uL Polychromasia 1+ Anisocytosis Present Tear Drop Cells 1+ Ovalocytes 1+ PT 12.3 H (9.0-12.0) Seconds INR 1.1 (0.9-1.1) Sodium 136 (136-145) mmol/L Potassium 5.7 H (3.5-5.1) mmol/L Chloride 112 H (98-107) mmol/L Carbon Dioxide 19 L (21-32) mmol/L Anion Gap 5 (3-11) BUN 69 H (6-23) mg/dl Creatinine 2.25 H (0.6-1.4) mg/dl Est Cr Clr Drug Dosing 28.3 ml/min eGFR 29.85 BUN/Creatinine Ratio 30.7 H (10-20) Glucose 224 H (70-99(Fasting)) mg/dl POC Glucose (70-99) mg/dl Estimat Average Glucose mg/dl Hemoglobin A1c (4.5-5.6) % Calcium 9.0 (8.6-10.3) mg/dl Phosphorus (2.5-4.9) mg/dl Magnesium (1.7-2.4) mg/dl Total Bilirubin 2.1 H (0.2-1.0) mg/dl AST 60 H (13-39) U/L ALT 35 (7-52) U/L Alkaline Phosphatase 396 H (34-104) U/L Ammonia (18-72) umol/L Total Protein 6.9 (6.0-8.3) gm/dl Albumin 2.5 L (3.4-5.0) gm/dl Globulin 4.4 H (2.5-4.0) gm/dl Albumin/Globulin Ratio 0.6 L (0.9-2) Lipase 26 (11-82) U/L Urine Color Red Urine Appearance Turbid A (Clear) Urine pH 6.0 (4.5-7.5) Ur Specific [place] 1.020 (1.000-1.030) Urine Protein 3+ H (Negative) Urine Glucose (UA) Negative (Negative) Urine Ketones Negative (Negative) Urine Blood 3+ H (Negative) Urine Nitrite Negative (Negative) Urine Bilirubin Negative (Negative) Urine Urobilinogen Negative (Negative) Ur Leukocyte Esterase Negative (Negative) Urine RBC >20 H (0-2) /hpf Urine WBC 11-20 H (0-5) /hpf Ur Epithelial Cells 3-5 H (0-2) /hpf Urine Bacteria 1+ H (None Seen) Urine Comment Nasal Screen MRSA (PCR) (Negative) Misc Micro Test Pending Blood Type Antibody Screen Antibody Identification Antibody ID Referred Antibody ID Comment Direct Antiglob Test (Negative) ADDY (IgG-AHG) (Negative) ADDY, Polyspecific (Negative) ADDY C3b, C3d 5 Min (Negative) Crossmatch PG Care Time/CCT Total # of Minutes Spent Total Time Spent with Patient: Total time spent is greater than 50% in coordination of care (as documented) at patient's floor/unit and/or counseling patient: I spent 65 minutes overall addressing this case: 15 min in medical data review/discussion with referring provider(s) and/or preparation for the visit 20 min in direct interaction with the patient/exam 00 min in Advance Care Planning/Goals of Care discussions as detailed above in note (must be >16min) 15 min in subsequent review and synthesis of assessment and plan 15 min communicating with other providers regarding the patient's case: primary team [place] [address] SUB INP/OBS CARE 3/50MIN Patient Type Established History Comprehensive Exam Comprehensive Medical Decision Making High Complexity Diagnoses Altered mental status R41.82 Abdominal pain, generalized R10.84 Advanced care planning/counseling discussion Z71.89 Palliative care by specialist Z51.5 Comment [id number]
--- NOTE | 2025-05-18 16:35 | Hospitalist Progress Note ---
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: Plan Patient is a medically complex 74-year-old male with past medical history significant for decompensated FOFANA cirrhosis s/p TIPS with esophageal varices, recurrent ascites with SBP, HCC [on supportive treatment only/not candidate for cancer directed therapy due to age and comorbidities per outpatient oncology documentation], thrombocytopenia, chronic anemia, gastric antral vascular ectas ia, hepatic encephalopathy, non-occlusive portal vein thrombosis, prostate cancer s/p radiotherapy on chronic Lupron suppression c/b radiation cystitis with recurrent hematuria, CKD stage IIIa, insulin-requiring DMII and other problems listed below who presented to the ED via EMS from [facility] with gross hematuria. Decompensated FOFANA cirrhosis s/p TIPs w/ esophageal varices Recurrent ascites, history of SBP Waxing/waning mentation level in ED --> ? possible baseline Recently completed ABX course last month during admission at [facility] for SBP -Last paracentesis done on 05/05 at [facility] -Ascitic fluid cx grew Serratia marcescens susceptible to cefepime/Rocephin/cipro/gent/Bactrim -Was started on prophylactic cipro for SBP prevention as directed by hepatology CTAP: stable findings of cirrhosis, portal hypertension, and small amount of ascites. --Patient currently requiring weekly paracentesis per family: Advised to follow- up with hepatology as outpatient Completed IV Rocephin course Resuming home chronic suppressive ciprofloxacin therapy before for SBP prevention Continue home lactulose, Xifaxan Resume home diuretics as able Monitor volume status Appreciate palliative care input and recommendation Status post repeat paracentesis of 2.4 L on 05/17/2025 Remains extremely weak and lethargic Prognosis remains extremely poor Acute blood loss anemia likely due to recurrent hematuria secondary to chronic radiation cystitis --CT ABD:Small amount of gas in the nondistended urinary bladder. Small amount of patchy density dependently in the urinary bladder, debris versus clot. Stable findings of cirrhosis, portal hypertension, and small amount of ascites. Increased size of small right pleural effusion. --S/P 2 units PRBCs Monitor and transfuse as needed H&H Continue Kan catheter for now Appreciate urology input Avoid anticoagulation Bladder scan as needed Urology following: Recommends no intervention at this time. Recommends to follow-up with [facility] urology Dr. Peraza upon discharge Hemoglobin 9.5 today Hematuria improving-hemoglobin hemoglobin minimally low at 8.4 minimally low at 8.4 as of 05/18/2025 as of 05/18/2025 Complicated Urinary tract infection--POA H/O prostate cancer S/P radiation, Lupron Urine culture: Preliminary growing VRE Enterococcus faecium, Mary-sensitive to daptomycin Continue Daptomycin plan to complete 7 day course Continue Kan catheter for now Urology on board Will finish the course of antibiotic will finish the course of antibiotic Acute kidney injury on CKD stage IIIa Baseline 1.8-2.0 Creatinine 2.1 today Monitor renal function Avoid nephrotoxic agents as able Appreciate nephrology input Renal function stable and the creatinine level is 2.69 Hyperkalemia Likely due to LUCRETIA, poor oral intake continue to hold Aldactone Monitor potassium levels IV Lasix per nephrology Appreciate nephrology input Potassium 5.5 today Restarted Lokelma -potassium level is 4.7 as of 05/18/2025 Hypomagnesemia Replete and monitor Abnormal Head CT Transient blurry vision Compression of brain without herniation --CT head:There are shifting subdural homogeneously low attenuating collections, which is now increased on the right, and the prior left-sided subdural collection has resolved. There is now approximately 3 mm of leftward midline shift. These may represent chronic subdural hematomas or hygromas. -Recent ground-level fall on 04/01/25 leading to SDH Repeat head CT at [facility] on 04/15 --> resolution of previously described subarachnoid and intraventricular hemorrhage S/p course of Keppra while at [facility], no surgical intervention required --MRI Brain:No evidence of acute intracranial pathology. There is a right subdural fluid collection measuring 12.5 mm in maximal diameter causing 3.5 mm of midline shift to the left. --MRA Head:Negative MRA of the brain. --Neck MRA:Negative MRA of the neck. Neuro Checks Appreciate neurology input: No intervention currently needed, monitor Cervical stenosis at C5-C6 MRI Neck pending Consider orthopedic spine evaluation Increased size of small R pleural effusion On 2L NC, resp status stable Continue to monitor for now Received IV Lasix Insulin-dependent DM II Hgb A1c 9.2% 1mo ago HbA1c 5.8 currently Continue insulin per protocol Appreciate glycemic pharm assistance Antineoplastic chemotherapy induced pancytopenia UDAY Continue iron supplementation Monitor CBC Gout Continue allopurinol GERD Continue PPI DVT Px: SCDs/TEDs Re: Hematuria, Anemia Code Status: DNR/DNI Disposition: Await palliative care recommendation Admission and Anticipated Discharge Date Admission Date: May 12, 2025 Subjective 05/18/2025 The patient was seen and examined in telemetry unit He has been very weak and lethargic Occasional abdominal pain but no nausea no vomiting Has not been eating enough Review of Systems Review of Systems: At least ten systems reviewed and negative, except as noted in the HPI. Physical Exam Physical Exam: Lying in bed looking depressed and lethargic Constitutional: + ill appearing and + thin Eyes: PERRL, conjunctivae normal, anicteric sclerae ENMT: external ear and nose normal, oropharynx normal Neck: trachea midline, no thyromegaly Respiratory: no respiratory distress Auscultation: + diminished lung sounds and + crackles (Occasional crackles at the bases) Cardiovascular: Rate/Rhythm: regular rate and regular rhythm; not tachycardic Heart Sounds: normal S1 and normal S2; no murmur Extremities: + edema (Trace to 1+ edema bilaterally) Gastrointestinal (Abdomen): Inspection/Auscultation: + abdomen distended (Minimally distended but soft) and normal bowel sounds Percussion/Palpation: + abdomen tender (Mildly tender all over without guarding and no rigidity) and abdomen soft Musculoskeletal: No acute arthritis involving any of the joint Neurologic: normal touch/pain/proprioception and moves all extremities (Remains extremely weak and lethargic); no focal motor deficits Lymphatic: no cervical or axillary lymphadenopathy Results & Data Results & Data Vital Signs (Past 12 Hours) Vital Signs Temp Pulse Pulse Resp BP Pulse Ox O2 Del Method 05/18/25 15:28 36.5 C 85 13 115/62 96 Room Air 05/18/25 11:23 36.5 C 90 16 137/67 98 Room Air 05/18/25 09:17 Room Air 05/18/25 08:10 36.4 C L 89 16 120/55 L 94 Room Air 05/18/25 08:06 80 Laboratory Results Short CBC 05/18/25 Range/Units 05:22 WBC 5.22 (4.8-10.8) K/ul Hgb 8.4 L (14.0-18.0) g/dl Hct 25.5 L (42.0-52.0) % Plt Count 79 L (130-400) K/uL [facility] 05/18/25 05:22 Sodium 133 L Potassium 4.7 Chloride 110 H Carbon Dioxide 16 L BUN 86 H Creatinine 2.69 H D Glucose 161 H Calcium 8.4 L Medications Administered Current Inpatient Medications Acetaminophen (Acetaminophen 325 Mg Tab) 650 mg PO Q4H PRN PRN Reason: Pain or Fever Stop: 06/11/25 17:05 Last Admin: 05/18/25 10:17 Dose: 650 mg Allopurinol (Allopurinol 100 Mg Tab) 200 mg PO [facility] Stop: 06/12/25 08:59 Last Admin: 05/18/25 10:14 Dose: 200 mg Ciprofloxacin (Ciprofloxacin 500 Mg Tab) 500 mg PO [facility]; Protocol Stop: 06/16/25 08:59 Last Admin: 05/18/25 10:21 Dose: 500 mg Dextrose (Dextrose 50% 50 Ml Syringe) 25 - 50 ml IV UD PRN; Protocol PRN Reason: Hypoglycemia Protocol Stop: 06/11/25 16:36 Duloxetine HCl (Duloxetine Hcl 30 Mg Cap) 30 mg PO [facility] Stop: 06/12/25 08:59 Last Admin: 05/18/25 10:14 Dose: 30 mg Ferrous Sulfate (Ferrous Sulfate 325 Mg Tab) 325 mg PO BID [facility] Stop: 06/11/25 20:59 Last Admin: 05/18/25 10:21 Dose: 325 mg Finasteride (Finasteride 5 Mg Tab) 5 mg PO [facility] Stop: 06/12/25 08:59 Last Admin: 05/18/25 10:19 Dose: 5 mg Glucagon (Glucagon For Inj 1 Mg Vial) 1 mg SQ UD PRN; Protocol PRN Reason: Hypoglycemia Protocol Stop: 06/11/25 16:36 Glucose (Glucose 40% Gel 15 Gm Tube) 15 - 30 gm PO UD PRN; Protocol PRN Reason: Hypoglycemia Protocol Stop: 06/11/25 16:36 Glucose (Glucose 10 Tab/Tube) 4 - 8 tab PO UD PRN; Protocol PRN Reason: Hypoglycemia Protocol Stop: 06/11/25 16:36 Promethazine HCl (Phenergan) 6.25 mg in 50.25 mls @ 201 mls/hr IV Q6H PRN PRN Reason: Nausea And Vomiting Stop: 06/15/25 11:33 Last Infusion: 05/17/25 22:29 Dose: Infused Daptomycin 700 mg/ Syringe 14 mls @ 7 mls/min IV Q48H [facility]; Protocol Stop: 05/20/25 11:59 Last Admin: 05/18/25 12:00 Dose: 7 mls/min Insulin Aspart (Insulin Aspart Per Unit Charge) 0 units SC ACHS [facility] Stop: 06/11/25 16:59 Last Admin: 05/18/25 12:48 Dose: 11 units Insulin Glargine (Lantus Per Unit Charge) 10 units SC DAILY [facility] Stop: 06/18/25 08:59 Lactulose (Lactulose Syrup 10 Gm/15 Ml Btl 960 Ml) 20 gm PO BID [facility] Stop: 06/11/25 20:59 Last Admin: 05/18/25 10:13 Dose: 20 gm Levocarnitine (Levocarnitine (With Sugar) 100 Mg/Ml Udp) 1,000 mg PO BID [facility] Stop: 06/11/25 20:59 Last Admin: 05/18/25 10:20 Dose: 1,000 mg Magnesium Chloride (Magnesium Chloride W/Calcium 64mg Delayed Rel Tab) 64 mg PO BID [facility] Stop: 06/12/25 20:59 Last Admin: 05/18/25 10:21 Dose: 64 mg Magnesium Hydroxide (Magnesium Hydroxide Susp 30 Ml Udc) 30 ml PO Q12H PRN PRN Reason: Constipation Stop: 06/11/25 17:05 Miscellaneous (Carbohydrates For Hypoglycemia ) 15 - 30 gm PO UD PRN PRN Reason: Hypoglycemia Protocol Stop: 06/11/25 16:36 Miscellaneous Information (Pharmacy Glycemic Mgmt Consult) 1 each N/A UD PRN PRN Reason: Consult Stop: 06/11/25 16:36 Multivitamins/Minerals (Cerovite Adv Formula Tab) 1 tab PO QAM [facility] Stop: 06/12/25 08:59 Last Admin: 05/18/25 10:15 Dose: 1 tab Oxybutynin Chloride (Oxybutynin Chloride 5 Mg Tab) 5 mg PO TID PRN PRN Reason: Bladder Spasms Stop: 06/11/25 16:29 Last Admin: 05/13/25 21:54 Dose: 5 mg Oxybutynin Chloride (Oxybutynin Chloride Xl 5 Mg Tabcr) 5 mg PO QAM [facility] Stop: 06/12/25 08:59 Last Admin: 05/18/25 10:22 Dose: 5 mg Pantoprazole Sodium (Pantoprazole 40 Mg Tab) 40 mg PO BID [facility] Stop: 06/11/25 20:59 Last Admin: 05/18/25 10:22 Dose: 40 mg Phenazopyridine HCl (Phenazopyridine Hcl 200 Mg Tab) 200 mg PO TID PRN PRN Reason: Dysuria Stop: 06/12/25 21:53 Last Admin: 05/18/25 16:19 Dose: 200 mg Polyethylene Glycol (Polyethylene (Miralax) 17 Gm Pack) 17 gm PO DAILY PRN PRN Reason: Constipation Stop: 06/11/25 17:05 Rifaximin (Rifaximin 550 Mg Tablet) 550 mg PO BID [facility] Stop: 06/11/25 20:59 Last Admin: 05/18/25 10:18 Dose: 550 mg Sodium Zirconium Cyclosilicate (Sodium Zirconium Cyclosilicate 10 Gm Packet) 10 gm PO TID [facility] Stop: 05/19/25 09:01 Last Admin: 05/18/25 14:19 Dose: Not Given (1) Hematuria Hematuria type: unspecified type Qualified Code(s): R31.9 - Hematuria, unspecified
[2025-05-19] MEDS: LANTUS PER UNIT CHARGE SC SCH (09:08)
[2025-05-19] MEDS ORDERED: LORazepam 2 MG/1 ML VIAL IV PRN (14:39)
[2025-05-19] MEDS ORDERED: GLYCOPYRROLATE 0.2 MG/ML VIAL IV PRN (14:39)
--- NOTE | 2025-05-19 14:52 | Palliative Family Discussion ---
Date of Service May 19, 2025 Patient Directed Conference Time of Meetin-245pm Participants: Ashwini Oneal DNP Patient participation: no, lacks decisional capacity/intermittent lucidity Patient Support System: son and Alex CHANEY Other Healthcare Provider Participation: None Meeting Location: telephonic Advanced Directive available: Yes, POLST on file The patient's surrogate medical decision maker participated: tari Johnson is RITU Legally authorized health care proxy: Son is Alex CHANEY This telephonic ACP meeting was held for MERRITT HALE. This meeting was necessary for determining the appropriate course of treatment. Topics of Discussion Topics of Discussion: 1. I spoke with Sudhirts son, Alex, who is also the POA. We discussed his decline and the unfix-ability of his medical issues/likelihood that things are going to continue to worsen in a snowballing manner. Alex is very aware that patient is not going to recover to a meaningful baseline and after discussion was in agreement for transition to a comfort plan of care. [facility] noting that he is no longer going to be able to participate in acute rehab or gain any benefit from it. He would like patient to be sent to [facility] if possible because that is where his is a resident and Alex would like for patient and to be able to see each other for what ever time patient has remaining. I will write comfort care orders to help begin this transition. When Alex asked about prognosis, I advised that it is likely in the period of weeks to ?few months, but that anything acute can happen in the inter im that may accelerate this timeline. Alex was appreciative and expressed that as a family, they feel that patient does not have more than a few months. They are all in agreement with the transition to comfort and a focus on quality of life with no further returns to the hospital. They would like him to have hospice at [facility] if possible and do not have an agency preference. Other Content of Meetin. Opportunity given for participants to speak and ask questions. 2. Participants were assured of attention to patient comfort. 3. Reassurance provided. 4. Support was provided for informed, good-hattie decisions. 5. Emotions expressed by family were acknowledged and addressed. 6. Follow-up: Dispo to [facility] with HEAD OF [employer]CH[employer] /CM aware 7. Plan of Care: as outlined above Comfort Care Discharge Summary & Plan of Care For [facility]sp/SNF/PCH/GROUP HOME Patient Name: Merritt Hale Comfort plan of care agreed upon by: son Alex/RITU Comfort plan of care parameters: 1. Patient/Family want hospice added to their care. 2. NO rehab/PT/OT 3. Strictly End of Life care only 4. NO escalation of care: do not increase oxygen, escalate therapies, etc. The focus is on comfort through end of life, assure this is accomplished with aggressive symptom management (i.e. relief of dyspnea, pain, etc.) 5. NO return to hospital 6. NO labs, imaging, surgery 7. Oral intake as desired for comfort and pleasure: NO dietary restriction, Allow permissive aspiration, do not withhold food or drink for concern of aspiration and allow PO for pleasure and comfort. 8. If difficulty urinating/commode/bedpan, ok to place Kan catheter for comfort/hygiene/skin protection AND/OR Continue Kan catheter for comfort/hygiene/skin protection 9. NO: calorie counts, artificial nutrition, feeding tubes or IV fluids Medications to continue are noted on discharge summary. Provider to contact if any questions about comfort plan of care: [facility] or designee Thank you for allowing us to participate in the ongoing care of this patient. Please page with any additional concerns. Alicia Oneal DNP Director, Palliative Medicine
--- NOTE | 2025-05-19 16:10 | Hospitalist Progress Note ---
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: Plan Patient is a medically complex 74-year-old male with past medical history significant for decompensated FOFANA cirrhosis s/p TIPS with esophageal varices, recurrent ascites with SBP, HCC [on supportive treatment only/not candidate for cancer directed therapy due to age and comorbidities per outpatient oncology documentation], thrombocytopenia, chronic anemia, gastric antral vascular ectas ia, hepatic encephalopathy, non-occlusive portal vein thrombosis, prostate cancer s/p radiotherapy on chronic Lupron suppression c/b radiation cystitis with recurrent hematuria, CKD stage IIIa, insulin-requiring DMII and other problems listed below who presented to the ED via EMS from [facility] with gross hematuria. Decompensated FOFANA cirrhosis s/p TIPs w/ esophageal varices Recurrent ascites, history of SBP Waxing/waning mentation level in ED --> ? possible baseline Recently completed ABX course last month during admission at [facility] for SBP -Last paracentesis done on 05/05 at [facility] -Ascitic fluid cx grew Serratia marcescens susceptible to cefepime/Rocephin/cipro/gent/Bactrim -Was started on prophylactic cipro for SBP prevention as directed by hepatology CTAP: stable findings of cirrhosis, portal hypertension, and small amount of ascites. --Patient currently requiring weekly paracentesis per family: Advised to follow- up with hepatology as outpatient Completed IV Rocephin course Resuming home chronic suppressive ciprofloxacin therapy before for SBP prevention Continue home lactulose, Xifaxan Resume home diuretics as able Monitor volume status Appreciate palliative care input and recommendation Status post repeat paracentesis of 2.4 L on 05/17/2025 Remains extremely weak and lethargic Prognosis remains extremely poor Remains medically stable but critical Profound weakness and tiredness and not a candidate for rehab Will discuss with the son for further management towards comfort care/hospice care in a facility Acute blood loss anemia likely due to recurrent hematuria secondary to chronic radiation cystitis --CT ABD:Small amount of gas in the nondistended urinary bladder. Small amount of patchy density dependently in the urinary bladder, debris versus clot. Stable findings of cirrhosis, portal hypertension, and small amount of ascites. Increased size of small right pleural effusion. --S/P 2 units PRBCs Monitor and transfuse as needed H&H Continue Kan catheter for now Appreciate urology input Avoid anticoagulation Bladder scan as needed Urology following: Recommends no intervention at this time. Recommends to follow-up with [facility] urology Dr. Peraza upon discharge Hemoglobin 9.5 today Hematuria improving-hemoglobin hemoglobin minimally low at 8.4 minimally low at 8.4 as of 05/18/2025 as of 05/18/2025 Hematuria seems to be improving and he does not have any abdominal pain or distention Complicated Urinary tract infection--POA H/O prostate cancer S/P radiation, Lupron Urine culture: Preliminary growing VRE Enterococcus faecium, Mary-sensitive to daptomycin Continue Daptomycin plan to complete 7 day course Continue Kan catheter for now Urology on board Will finish the course of antibiotic will finish the course of antibiotic Acute kidney injury on CKD stage IIIa Baseline 1.8-2.0 Creatinine 2.1 today Monitor renal function Avoid nephrotoxic agents as able Appreciate nephrology input Renal function stable and the creatinine level is 2.69 Will monitor PRP tomorrow Hyperkalemia Likely due to LUCRETIA, poor oral intake continue to hold Aldactone Monitor potassium levels IV Lasix per nephrology Appreciate nephrology input Potassium 5.5 today Restarted Lokelma -potassium level is 4.7 as of 05/18/2025 Hypomagnesemia Replete and monitor Abnormal Head CT-Chronic Subdural hematoma/Hygroma Transient blurry vision Compression of brain without herniation --CT head:There are shifting subdural homogeneously low attenuating collections, which is now increased on the right, and the prior left-sided subdural collection has resolved. There is now approximately 3 mm of leftward midline shift. These may represent chronic subdural hematomas or hygromas. -Recent ground-level fall on 04/01/25 leading to SDH Repeat head CT at [facility] on 04/15 --> resolution of previously described subarachnoid and intraventricular hemorrhage S/p course of Keppra while at [facility], no surgical intervention required --MRI Brain:No evidence of acute intracranial pathology. There is a right subdural fluid collection measuring 12.5 mm in maximal diameter causing 3.5 mm of midline shift to the left. --MRA Head:Negative MRA of the brain. --Neck MRA:Negative MRA of the neck. Neuro Checks Appreciate neurology input: No intervention currently needed, monitor Cervical stenosis at C5-C6 As above Consider orthopedic spine evaluation-Input appreciated.No additional measures Increased size of small R pleural effusion On 2L NC, resp status stable Continue to monitor for now Received IV Lasix Insulin-dependent DM II Hgb A1c 9.2% 1mo ago HbA1c 5.8 currently Continue insulin per protocol Appreciate glycemic pharm assistance Antineoplastic chemotherapy induced pancytopenia UDAY Continue iron supplementation Monitor CBC Gout Continue allopurinol GERD Continue PPI DVT Px: SCDs/TEDs Re: Hematuria, Anemia Code Status: DNR/DNI Disposition: Await palliative care recommendation Admission and Anticipated Discharge Date Admission Date: May 12, 2025 Subjective 05/18/2025 The patient was seen and examined in telemetry unit He has been very weak and lethargic Occasional abdominal pain but no nausea no vomiting Has not been eating enough 05/19/2025 The patient was seen and examined in telemetry unit He has been a little better today but he still has profound weakness Denies any significant pain Review of Systems Review of Systems: At least ten systems reviewed and negative, except as noted in the HPI. Physical Exam Physical Exam: Lying in bed looking depressed and lethargic Constitutional: + ill appearing and + thin Eyes: PERRL, conjunctivae normal, anicteric sclerae ENMT: external ear and nose normal, oropharynx normal Neck: trachea midline, no thyromegaly Respiratory: no respiratory distress Auscultation: + diminished lung sounds and + crackles (Occasional crackles at the bases) Cardiovascular: Rate/Rhythm: regular rate and regular rhythm; not tachycardic Heart Sounds: normal S1 and normal S2; no murmur Extremities: + edema (Trace to 1+ edema bilaterally) Gastrointestinal (Abdomen): Inspection/Auscultation: normal bowel sounds; abdomen not distended (Minimally distended but soft) Percussion/Palpation: abdomen soft; abdomen nontender (Mildly tender all over without guarding and no rigidity) Neurologic: normal touch/pain/proprioception and moves all extremities (Re anai extremely weak and lethargic); no focal motor deficits Lymphatic: no cervical or axillary lymphadenopathy Results & Data Results & Data Vital Signs (Past 12 Hours) Vital Signs Temp Pulse Pulse Resp BP Pulse Ox O2 Del Method 05/19/25 11:32 36.6 C 88 17 144/72 H 95 Room Air 05/19/25 10:11 Room Air 05/19/25 08:03 36.9 C 82 17 141/64 H 94 Room Air 05/19/25 07:06 83 Medications Administered Current Inpatient Medications Acetaminophen (Acetaminophen 325 Mg Tab) 650 mg PO Q4H PRN PRN Reason: Pain or Fever Stop: 06/11/25 17:05 Last Admin: 05/18/25 10:17 Dose: 650 mg Allopurinol ([facility]ol 100 Mg Tab) [facility] Stop: 06/12/25 08:59 Last Admin: 05/19/25 08:00 Dose: 200 mg Duloxetine HCl (Duloxetine Hcl 30 Mg Cap) [facility] Stop: 06/12/25 08:59 Last Admin: 05/19/25 08:02 Dose: 30 mg Finasteride (Finasteride 5 Mg Tab) 5 mg PO QAM COUNT [facility]CLUDES [facility] Stop: 06/12/25 08:59 Last Admin: 05/19/25 08:10 Dose: 5 mg Glycopyrrolate (Glycopyrrolate 0.2 Mg/Ml Vial) 0.4 mg IV Q4H PRN PRN Reason: Rattling Secretions or Pulm Congestion Stop: 06/18/25 14:38 Promethazine HCl (Phenergan) 6.25 mg in 50.25 mls @ 201 mls/hr IV Q6H PRN PRN Reason: Nausea And Vomiting Stop: 06/15/25 11:33 Last Infusion: 05/17/25 22:29 Dose: Infused Insulin Aspart (Insulin Aspart Per Unit Charge) 0 units SC ACHS COUNT INCLUDES THE [facility] Stop: 06/11/25 16:59 Last Admin: 05/19/25 13:24 Dose: 10 units Insulin Glargine (Lantus Per Unit Charge) 10 units SC DAILY COUNT INCLUDES THE [facility] Stop: 06/18/25 08:59 Last Admin: 05/19/25 09:08 Dose: 10 units Lactulose (Lactulose Syrup 10 Gm/15 Ml Btl 960 Ml) 20 gm PO BID COUNT INCLUDES THE [facility] Stop: 06/11/25 20:59 Last Admin: 05/19/25 08:03 Dose: 20 gm Levocarnitine (Levocarnitine (With Sugar) 100 Mg/Ml Udp) 1,000 mg PO BID COUNT INCLUDES THE [facility] Stop: 06/11/25 20:59 Last Admin: 05/19/25 08:04 Dose: 1,000 mg Lorazepam (Lorazepam 2 Mg/1 Ml Vial) 0.5 mg IV Q4H PRN PRN Reason: Anxiety/Agitation Stop: 06/18/25 14:38 Magnesium Chloride (Magnesium Chloride W/Calcium 64mg Delayed Rel Tab) 64 mg PO BID JODI Stop: 06/12/25 20:59 Last Admin: 05/19/25 08:05 Dose: 64 mg Magnesium Hydroxide (Magnesium Hydroxide Susp 30 Ml Udc) 30 ml PO Q12H PRN PRN Reason: Constipation Stop: 06/11/25 17:05 Miscellaneous Information (Pharmacy Glycemic Mgmt Consult) 1 each N/A UD PRN PRN Reason: Consult Stop: 06/11/25 16:36 Oxybutynin Chloride (Oxybutynin Chloride 5 Mg Tab) 5 mg PO TID PRN PRN Reason: Bladder Spasms Stop: 06/11/25 16:29 Last Admin: 05/13/25 21:54 Dose: 5 mg Oxybutynin Chloride (Oxybutynin Chloride Xl 5 Mg Tabcr) 5 mg PO QAM JODI Stop: 06/12/25 08:59 Last Admin: 05/19/25 08:10 Dose: 5 mg Oxycodone HCl (Oxycodone Hcl 10 Mg/0.5 Ml Udp) 10 mg PO Q2H PRN PRN Reason: Pain,dyspnea Stop: 06/02/25 15:01 Pantoprazole Sodium (Pantoprazole 40 Mg Tab) 40 mg PO BID JODI Stop: 06/11/25 20:59 Last Admin: 05/19/25 08:04 Dose: 40 mg Phenazopyridine HCl (Phenazopyridine Hcl 200 Mg Tab) 200 mg PO TID PRN PRN Reason: Dysuria Stop: 06/12/25 21:53 Last Admin: 05/18/25 16:19 Dose: 200 mg Polyethylene Glycol (Polyethylene (Miralax) 17 Gm Pack) 17 gm PO DAILY PRN PRN Reason: Constipation Stop: 06/11/25 17:05 (1) Hematuria Hematuria type: unspecified type Qualified Code(s): R31.9 - Hematuria, unspecified
[2025-05-20 06:20] LABS: Basophils # (auto) 0.01 K/uL (0.00-0.20); Basophils % (auto) 0.3 %; Eosinophils # (auto) 0.25 K/uL (0.00-0.50); Eosinophils % (auto) 6.9 %; Hematocrit (blood only) 23.2 % (42.0-52.0); Hemoglobin 7.7 g/dl (14.0-18.0); Immature Granulocytes # (auto) 0.03 K/uL (0.01-0.20); Immature Granulocytes % (auto) 0.8 %; Lymphocytes # (auto) 0.44 K/uL (1.20-3.40); Lymphocytes % (auto) 12.1 %; Mean Corpuscular Hemoglobin 31.8 pg (25.0-34.0); Mean Corpuscular Hgb Conc 33.2 g/dL (32.0-36.0); Mean Corpuscular Volume 95.9 fL (80.0-100.0); Mean Platelet Volume 11.8 fL (9.4-12.4); Monocytes # (auto) 0.24 K/uL (0.11-0.59); Monocytes % (auto) 6.6 %; Neutrophils # (auto) 2.67 K/uL (1.40-6.50); Neutrophils % (auto) 73.3 %; Platelet Count 78 K/uL (130-400); RDW Coefficient of Variation 19.9 % (11.5-14.5); RDW Standard Deviation 69.8 fL (36.4-46.3); Red Blood Count 2.42 M/uL (4.70-6.10); White Blood Count 3.64 K/ul (4.8-10.8)
[2025-05-20 06:42] LABS: BUN Creatinine Ratio 32.9 (10-20); Calcium 8.4 mg/dl (8.6-10.3); Creatinine Clr Calc Pharmacy 20.8 ml/min; Phosphorus 4.7 mg/dl (2.5-4.9); Potassium 4.8 mmol/L (3.5-5.1)
[2025-05-20 06:52] LABS: RBC Morphology Unremarkable
[2025-05-20] MEDS: CIPROFLOXACIN 500 MG TAB PO SCH (09:03)
[2025-05-20] MEDS: LANTUS PER UNIT CHARGE SC SCH ×2 (09:27→17:49)
--- NOTE | 2025-05-20 13:56 | Hospitalist Progress Note ---
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: Plan Patient is a medically complex 74-year-old male with past medical history significant for decompensated FOFANA cirrhosis s/p TIPS with esophageal varices, recurrent ascites with SBP, HCC [on supportive treatment only/not candidate for cancer directed therapy due to age and comorbidities per outpatient oncology documentation], thrombocytopenia, chronic anemia, gastric antral vascular ectas ia, hepatic encephalopathy, non-occlusive portal vein thrombosis, prostate cancer s/p radiotherapy on chronic Lupron suppression c/b radiation cystitis with recurrent hematuria, CKD stage IIIa, insulin-requiring DMII and other problems listed below who presented to the ED via EMS from [facility] with gross hematuria. Palliative care encounter Appreciate palliative care input and recommendation I had a long discussion with the son, the patient in presence of the nursing staff Detailed discussion about current medical condition specially decompensated cirrhosis, hepatorenal syndrome, chronic and ongoing anemia, hematuria and requiring blood transfusion The patient and the son are agreeable to continue with aggressive management to get him better and possible placement in fdc They wanted to have blood transfusion and blood work and continue with the PT and OT If the condition does not get any better within next day or 2 the patient and the son will think about comfort care only Decompensated FOFANA cirrhosis s/p TIPs w/ esophageal varices Recurrent ascites, history of SBP Waxing/waning mentation level in ED --> ? possible baseline Recently completed ABX course last month during [place] [facility] [place] -Last paracentesis done on 05/05 [place] [facility] [place]Ascitic fluid cx grew Serratia marcescens susceptible to cefepime/Rocephin/cipro/gent/Bactrim -Was started on prophylactic cipro for SBP prevention as directed by hepatology CTAP: stable findings of cirrhosis, portal hypertension, and small amount of ascites. --Patient currently requiring weekly paracentesis per family: Advised to follow- up with hepatology as outpatient Completed IV Rocephin course Resuming home chronic suppressive ciprofloxacin therapy before for SBP prevention Continue home lactulose, Xifaxan Resume home diuretics as able Monitor volume status Appreciate palliative care input and recommendation Status post repeat paracentesis of 2.4 L on 05/17/2025 Remains extremely weak and lethargic Prognosis remains extremely poor Remains medically stable but critical Profound weakness and tiredness and not a candidate for rehab Will discuss with the son for further management towards comfort care/hospice ca re in a facility Remains weak and lethargic and will continue with the current management Acute blood loss anemia likely due to recurrent hematuria secondary to chronic radiation cystitis --CT ABD:Small amount of gas in the nondistended urinary bladder. Small amount of patchy density dependently in the urinary bladder, debris versus clot. Stable findings of cirrhosis, portal hypertension, and small amount of ascites. Increased size of small right pleural effusion. --S/P 2 units PRBCs Monitor and transfuse as needed H&H Continue Kan catheter for now Appreciate urology input Avoid anticoagulation Bladder scan as needed Urology following: Recommends no intervention at this time. Recommends to follow-up with [facility] urology Dr. Peraza upon discharge Hemoglobin 9.5 today Hematuria improving-hemoglobin hemoglobin minimally low at 8.4 minimally low at 8.4 as of 05/18/2025 as of 05/18/2025 Hematuria seems to be improving and he does not have any abdominal pain or d istention Hemoglobin remains on the lower side at 7.7 and will monitor Complicated Urinary tract infection--POA H/O prostate cancer S/P radiation, Lupron Urine culture: Preliminary growing VRE Enterococcus faecium, Mary-sensitive to daptomycin Continue Daptomycin plan to complete 7 day course Continue Kan catheter for now Urology on board Will finish the course of antibiotic will finish the course of antibiotic Acute kidney injury on CKD stage IIIa Baseline 1.8-2.0 Creatinine 2.1 today Monitor renal function Avoid nephrotoxic agents as able Appreciate nephrology input Renal function stable and the creatinine level is 2.69 Will monitor PRP tomorrow- creatinine remains elevated at 2.77 with BUN of 91 Hyperkalemia Likely due to LUCRETIA, poor oral intake continue to hold Aldactone Monitor potassium levels IV Lasix per nephrology Appreciate nephrology input Potassium 5.5 today Restarted Lokelma -potassium level is 4.7 as of 05/18/2025 Potassium remains stable at 4.8 Hypomagnesemia Replete and monitor Abnormal Head CT-Chronic Subdural hematoma/Hygroma Transient blurry vision Compression of brain without herniation --CT head:There are shifting subdural homogeneously low attenuating collections, which is now increased on the right, and the prior left-sided subdural collection has resolved. There is now approximately 3 mm of leftward midline shift. These may represent chronic subdural hematomas or hygromas. -Recent ground-level fall on 04/01/25 leading to SDH Repeat head CT [place] [facility] [place] --> resolution of previously described subarachnoid and intraventricular hemorrhage S/p course of Keppra while at [facility], no surgical intervention required --MRI Brain:No evidence of acute intracranial pathology. There is a right subdural fluid collection measuring 12.5 mm in maximal diameter causing 3.5 mm of midline shift to the left. --MRA Head:Negative MRA of the brain. --Neck MRA:Negative MRA of the neck. Neuro Checks Appreciate neurology input: No intervention currently needed, monitor Cervical stenosis at C5-C6 As above Consider orthopedic spine evaluation-Input appreciated.No additional measures Increased size of small R pleural effusion On 2L NC, resp status stable Continue to monitor for now Received IV Lasix Insulin-dependent DM II Hgb A1c 9.2% 1mo ago HbA1c 5.8 currently Continue insulin per protocol Appreciate glycemic pharm assistance Blood sugar remains elevated and getting SSI to control it Antineoplastic chemotherapy induced pancytopenia UDAY Continue iron supplementation Monitor CBC Gout Continue allopurinol GERD Continue PPI DVT Px: SCDs/TEDs Re: Hematuria, Anemia Code Status: DNR/DNI Disposition: Await palliative care recommendation Admission and Anticipated Discharge Date Admission Date: May 12, 2025 Subjective 05/18/2025 The patient was seen and examined in telemetry unit He has been very weak and lethargic Occasional abdominal pain but no nausea no vomiting Has not been eating enough 05/19/2025 The patient was seen and examined in telemetry unit He has been a little better today but he still has profound weakness Denies any significant pain 05/20/2025 The patient was seen and examined in telemetry unit He has been very weak and lethargic Denies any significant distress otherwise in no pain Still he wants to try things to get better Review of Systems Review of Systems: At least ten systems reviewed and negative, except as noted in the HPI. Physical Exam Physical Exam: Lying in bed looking depressed and lethargic Constitutional: + ill appearing and + thin Eyes: PERRL, conjunctivae normal, anicteric sclerae ENMT: external ear and nose normal, oropharynx normal Neck: trachea midline, no thyromegaly Respiratory: no respiratory distress Auscultation: + diminished lung sounds and + crackles (Occasional crackles at the bases) Cardiovascular: Rate/Rhythm: regular rate and regular rhythm; not tachycardic Heart Sounds: normal S1 and normal S2; no murmur Extremities: + edema (Trace to 1+ edema bilaterally) Gastrointestinal (Abdomen): Inspection/Auscultation: normal bowel sounds; abdomen not distended (Minimally distended but soft) Percussion/Palpation: abdomen soft; abdomen nontender (Mildly tender all over without guarding and no rigidity) Neurologic: normal touch/pain/proprioception and moves all extremities (Remains extremely weak and lethargic); no focal motor deficits Lymphatic: no cervical or axillary lymphadenopathy Results & Data Results & Data Vital Signs (Past 12 Hours) Vital Signs Temp Pulse Pulse Resp BP BP Pulse Ox 05/20/25 11:25 87 138/65 97 05/20/25 07:47 05/20/25 07:42 37.0 C 74 16 135/65 93 O2 Del Method 05/20/25 11:25 Room Air 05/20/25 07:47 Room Air 05/20/25 07:42 Room Air Laboratory Results Short CBC 05/20/25 Range/Units 05:51 WBC 3.64 L (4.8-10.8) K/ul Hgb 7.7 L (14.0-18.0) g/dl Hct 23.2 L (42.0-52.0) % Plt Count 78 L (130-400) K/uL BMP 05/20/25 05:51 Sodium 134 L Potassium 4.8 Chloride 110 H Carbon Dioxide 17 L BUN 91 H Creatinine 2.77 H Glucose 165 H Calcium 8.4 L Medications Administered Current Inpatient Medications Acetaminophen (Acetaminophen 325 Mg Tab) 650 mg PO Q4H PRN PRN Reason: Pain or Fever Stop: 06/11/25 17:05 Last Admin: 05/18/25 10:17 Dose: 650 mg Allopurinol (Allopurinol 100 Mg Tab) 200 mg PO QAM COUNT INCLUDES THE [facility] Stop: 06/12/25 08:59 Last Admin: 05/20/25 09:03 Dose: 200 mg Ciprofloxacin (Ciprofloxacin 500 Mg Tab) 500 mg PO DAILY COUNT INCLUDES THE [facility]; Protocol Stop: 06/19/25 08:59 Last Admin: 05/20/25 09:03 Dose: 500 mg Duloxetine HCl (Duloxetine Hcl 30 Mg Cap) 30 mg PO QAM COUNT INCLUDES THE [facility] Stop: 06/12/25 08:59 Last Admin: 05/20/25 09:03 Dose: 30 mg Finasteride (Finasteride 5 Mg Tab) 5 mg PO QAM COUNT INCLUDES THE [facility] Stop: 06/12/25 08:59 Last Admin: 05/20/25 10:56 Dose: 5 mg Glycopyrrolate (Glycopyrrolate 0.2 Mg/Ml Vial) 0.4 mg IV Q4H PRN PRN Reason: Rattling Secretions or Pulm Congestion Stop: 06/18/25 14:38 Promethazine HCl (Phenergan) 6.25 mg in 50.25 mls @ 201 mls/hr IV Q6H PRN PRN Reason: Nausea And Vomiting Stop: 06/15/25 11:33 Last Infusion: 05/17/25 22:29 Dose: Infused Insulin Aspart (Insulin Aspart Per Unit Charge) 0 units SC ACHS COUNT INCLUDES THE [facility] Stop: 06/11/25 16:59 Last Admin: 05/20/25 12:40 Dose: 9 units Insulin Glargine (Lantus Per Unit Charge) 12 units SC DAILY COUNT INCLUDES THE [facility] Stop: 06/19/25 08:59 Last Admin: 05/20/25 09:27 Dose: 12 units Lactulose (Lactulose Syrup 10 Gm/15 Ml Btl 960 Ml) 20 gm PO BID COUNT INCLUDES THE [facility] Stop: 06/11/25 20:59 Last Admin: 05/20/25 09:07 Dose: 20 gm Levocarnitine (Levocarnitine (With Sugar) 100 Mg/Ml Udp) 1,000 mg PO BID COUNT INCLUDES THE [facility] Stop: 06/11/25 20:59 Last Admin: 05/20/25 09:07 Dose: 1,000 mg Lorazepam (Lorazepam 2 Mg/1 Ml Vial) 0.5 mg IV Q4H PRN PRN Reason: Anxiety/Agitation Stop: 06/18/25 14:38 Magnesium Chloride (Magnesium Chloride W/Calcium 64mg Delayed Rel Tab) 64 mg PO BID COUNT INCLUDES THE [facility] Stop: 06/12/25 20:59 Last Admin: 05/20/25 09:16 Dose: 64 mg Magnesium Hydroxide (Magnesium Hydroxide Susp 30 Ml Udc) 30 ml PO Q12H PRN PRN Reason: Constipation Stop: 06/11/25 17:05 Miscellaneous Information (Pharmacy Glycemic Mgmt Consult) 1 each N/A UD PRN PRN Reason: Consult Stop: 06/11/25 16:36 Oxybutynin Chloride (Oxybutynin Chloride 5 Mg Tab) 5 mg PO TID PRN PRN Reason: Bladder Spasms Stop: 06/11/25 16:29 Last Admin: 05/13/25 21:54 Dose: 5 mg Oxybutynin Chloride (Oxybutynin Chloride Xl 5 Mg Tabcr) 5 mg PO QAM JODI Stop: 06/12/25 08:59 Last Admin: 05/20/25 09:16 Dose: 5 mg Oxycodone HCl (Oxycodone Hcl 10 Mg/0.5 Ml Udp) 10 mg PO Q2H PRN PRN Reason: Pain,dyspnea Stop: 06/02/25 15:01 Pantoprazole Sodium (Pantoprazole 40 Mg Tab) 40 mg PO BID COUNT INCLUDES THE [facility] Stop: 06/11/25 20:59 Last Admin: 05/20/25 09:05 Dose: 40 mg Phenazopyridine HCl (Phenazopyridine Hcl 200 Mg Tab) 200 mg PO TID PRN PRN Reason: Dysuria Stop: 06/12/25 21:53 Last Admin: 05/18/25 16:19 Dose: 200 mg Polyethylene Glycol (Polyethylene (Miralax) 17 Gm Pack) 17 gm PO DAILY PRN PRN Reason: Constipation Stop: 06/11/25 17:05 (1) Hematuria Hematuria type: unspecified type Qualified Code(s): R31.9 - Hematuria, unspecified
--- NOTE | 2025-05-20 14:46 | Pharmacy Report ---
Pharmacy Glycemic Short Note 2 - Date of Service May 20, 2025 - Glycemic Short BSG Results (Last 24 hours): 05/19/25 05/19/25 05/19/25 16:26 20:10 20:11 Glucose POC Glucose 217 H > 600 H* 191 H 05/20/25 05/20/25 05/20/25 05:51 07:41 11:21 Glucose 165 H POC Glucose 176 H 305 H* 05/20/25 05/20/25 11:22 13:52 Glucose POC Glucose 311 H* 227 H OUTPATIENT ANTIDIABETIC REGIMEN: * Lantus 38 units qAM, novolog SSI HbA1c: 5.8% (05/13/25) ASSESSMENT: 05/19/25: * BSG elevated/insulin needs increasing over the past 48 hours with unclear cause (05/17-05/19: 17 units, 37 units, 41 units). Potentially due to basal deficiency? although Lantus 19 units caused fasting hypoglycemia earlier this stay. Current regimen is already bolus-heavy, therefore will trial increasing basal insulin. * Lunch BSG resulted at 311 mg/dL. Re-peat BSG drawn about 1 hour post lunchtime insulin coverage decreased to 227 mg/dL. Novolog carb ratio was tightened yesterday. Change did not appear to have a significant impact on post prandials. 05/17/25: * Patient received total of 12 units of insulin yesterday, of which 10 units were basal insulin * Fasting BSG trending down - 80 mg/dL this AM, will scale back basal to hopefully avoid future hypoglycemia. Appears PO intake was poorer yesterday. * Continue same CF/CR for now 05/14/25: * Blood sugars labile yesterday, ranging 61-218 mg/dL * Will plan on tightening Novolog given upward trend throughout the day * Will utilize past inpatient glycemic data to guide basal 05/13/25: * 74 year old admitted with gross hematuria. Type 2 diabetic - pharmacy consulted for glycemic management. Patient given one time dose of Lantus last evening as likely did not receive his AM dose that morning per reports. RN reporting patient has been confused, not eating much. BSGs this AM lower 61 mg/d, 74 mg/dL - will hold AM basal but have scale on for this evening with reduced dosing. PLAN FOR INPATIENT GLYCEMIC CONTROL: * Basal insulin * Lantus 12 units SC daily * Additional 2 units with dinner today * Bolus insulin * NovoLog per scale ACHS or Q6hrs while NPO * Goal Range: Low 120 mg/dL - High 150 mg/dL * Correction Factor: 20 mg/dL/unit * Nutritional / Prandial insulin per carb ratio of 1 unit per 5 grams CHO consumed
[2025-05-21 08:17] LABS: Calcium 8.5 mg/dl (8.6-10.3); Magnesium 2.1 mg/dl (1.7-2.4); Potassium 4.9 mmol/L (3.5-5.1)
[2025-05-21 08:18] LABS: Basophils # (auto) 0.02 K/uL (0.00-0.20); Basophils % (auto) 0.5 %; Eosinophils # (auto) 0.23 K/uL (0.00-0.50); Hemoglobin 7.7 g/dl (14.0-18.0); Immature Granulocytes # (auto) 0.05 K/uL (0.01-0.20); Immature Granulocytes % (auto) 1.3 %; Lymphocytes # (auto) 0.41 K/uL (1.20-3.40); Lymphocytes % (auto) 10.7 %; Mean Corpuscular Hemoglobin 32.6 pg (25.0-34.0); Mean Corpuscular Hgb Conc 33.5 g/dL (32.0-36.0); Mean Corpuscular Volume 97.5 fL (80.0-100.0); Mean Platelet Volume 11.4 fL (9.4-12.4); Monocytes # (auto) 0.25 K/uL (0.11-0.59); Monocytes % (auto) 6.5 %; Neutrophils # (auto) 2.86 K/uL (1.40-6.50); Platelet Count 77 K/uL (130-400); RDW Coefficient of Variation 19.9 % (11.5-14.5); RDW Standard Deviation 71.2 fL (36.4-46.3); Red Blood Count 2.36 M/uL (4.70-6.10); White Blood Count 3.82 K/ul (4.8-10.8)
[2025-05-21 08:23] LABS: Creatinine Clr Calc Pharmacy 21.5 ml/min; Phosphorus 4.7 mg/dl (2.5-4.9)
[2025-05-21 09:59] LABS: Echinocytes 1+; Tear Drop Cells 1+
--- NOTE | 2025-05-21 11:57 | Hospitalist Progress Note ---
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: Plan Patient is a medically complex 74-year-old male with past medical history significant for decompensated FOFANA cirrhosis s/p TIPS with esophageal varices, recurrent ascites with SBP, HCC [on supportive treatment only/not candidate for cancer directed therapy due to age and comorbidities per outpatient oncology documentation], thrombocytopenia, chronic anemia, gastric antral vascular ectas ia, hepatic encephalopathy, non-occlusive portal vein thrombosis, prostate cancer s/p radiotherapy on chronic Lupron suppression c/b radiation cystitis with recurrent hematuria, CKD stage IIIa, insulin-requiring DMII and other problems listed below who presented to the ED via EMS from [facility] with gross hematuria. Palliative care encounter Appreciate palliative care input and recommendation I had a long discussion with the son, the patient in presence of the nursing staff Detailed discussion about current medical condition specially decompensated cirrhosis, hepatorenal syndrome, chronic and ongoing anemia, hematuria and requiring blood transfusion The patient and the son are agreeable to continue with aggressive management to get him better and possible placement in fci They wanted to have blood transfusion and blood work and continue with the PT and OT If the condition does not get any better within next day or 2 the patient and the son will think about comfort care only He has been stable but remains very weak and lethargic Will continue with current management and physical therapy for possible discharge in SNF Decompensated FOFANA cirrhosis s/p TIPs w/ esophageal varices Recurrent ascites, history of SBP Waxing/waning mentation level in ED --> ? possible baseline Recently completed ABX course last month during admission at [facility] for SBP -Last paracentesis done on 05/05 at [facility] -Ascitic fluid cx grew Serratia marcescens susceptible to cefepime/Rocephin/cipro/gent/Bactrim -Was started on prophylactic cipro for SBP prevention as directed by hepatology CTAP: stable findings of cirrhosis, portal hypertension, and small amount of ascites. --Patient currently requiring weekly paracentesis per family: Advised to follow- up with hepatology as outpatient Completed IV Rocephin course Resuming home chronic suppressive ciprofloxacin therapy before for SBP prevention Continue home lactulose, Xifaxan Resume home diuretics as able Monitor volume status Appreciate palliative care input and recommendation Status post repeat paracentesis of 2.4 L on 05/17/2025 Remains extremely weak and lethargic Prognosis remains extremely poor Remains medically stable but critical Profound weakness and tiredness and not a candidate for rehab Will discuss with the son for further management towards comfort care/hospice care in a facility Remains weak and lethargic and will continue with the current management No acute distress except weakness Acute blood loss anemia likely due to recurrent hematuria secondary to chronic radiation cystitis --CT ABD:Small amount of gas in the nondistended urinary bladder. Small amount of patchy density dependently in the urinary bladder, debris versus clot. Stable findings of cirrhosis, portal hypertension, and small amount of ascites. Increased size of small right pleural effusion. --S/P 2 units PRBCs Monitor and transfuse as needed H&H Continue Kan catheter for now Appreciate urology input Avoid anticoagulation Bladder scan as needed Urology following: Recommends no intervention at this time. Recommends to follow-up with [facility] urology Dr. Peraza upon discharge Hemoglobin 9.5 today Hematuria improving-hemoglobin hemoglobin minimally low at 8.4 minimally low at 8.4 as of 05/18/2025 as of 05/18/2025 Hematuria seems to be improving and he does not have any abdominal pain or distention Hemoglobin remains on the lower side at 7.7 and will monitor- remains stable No more hematuria Complicated Urinary tract infection--POA H/O prostate cancer S/P radiation, Lupron Urine culture: Preliminary growing VRE Enterococcus faecium, Mary-sensitive to daptomycin Continue Daptomycin plan to complete 7 day course Continue Kan catheter for now Urology on board Will finish the course of antibiotic will finish the course of antibiotic Acute kidney injury on CKD stage IIIa Baseline 1.8-2.0 Creatinine 2.1 today Monitor renal function Avoid nephrotoxic agents as able Appreciate nephrology input Renal function stable and the creatinine level is 2.69 Will monitor PRP tomorrow- creatinine remains elevated at 2.77 with BUN of 91 Hyperkalemia Likely due to LUCRETIA, poor oral intake continue to hold Aldactone Monitor potassium levels IV Lasix per nephrology Appreciate nephrology input Potassium 5.5 today Restarted Lokelma -potassium level is 4.7 as of 05/18/2025 Potassium remains stable at 4.8 Hypomagnesemia Replete and monitor Abnormal Head CT-Chronic Subdural hematoma/Hygroma Transient blurry vision Compression of brain without herniation --CT head:There are shifting subdural homogeneously low attenuating collections, which is now increased on the right, and the prior left-sided subdural collection has resolved. There is now approximately 3 mm of leftward midline shift. These may represent chronic subdural hematomas or hygromas. -Recent ground-level fall on 04/01/25 leading to SDH Repeat head CT at [facility] on 04/15 --> resolution of previously described suba rachnoid and intraventricular hemorrhage S/p course of Keppra while at [facility], no surgical intervention required --MRI Brain:No evidence of acute intracranial pathology. There is a right subdur al fluid collection measuring 12.5 mm in maximal diameter causing 3.5 mm of midline shift to the left. --MRA Head:Negative MRA of the brain. --Neck MRA:Negative MRA of the neck. Neuro Checks Appreciate neurology input: No intervention currently needed, monitor Cervical stenosis at C5-C6 As above Consider orthopedic spine evaluation-Input appreciated.No additional measures Increased size of small R pleural effusion On 2L NC, resp status stable Continue to monitor for now Received IV Lasix Insulin-dependent DM II Hgb A1c 9.2% 1mo ago HbA1c 5.8 currently Continue insulin per protocol Appreciate glycemic pharm assistance Blood sugar remains elevated and getting SSI to control it Antineoplastic chemotherapy induced pancytopenia UDAY Continue iron supplementation Monitor CBC Gout Continue allopurinol GERD Continue PPI DVT Px: SCDs/TEDs Re: Hematuria, Anemia Code Status: DNR/DNI Disposition: Await palliative care recommendation Admission and Anticipated Discharge Date Admission Date: May 12, 2025 Subjective 05/18/2025 The patient was seen and examined in telemetry unit He has been very weak and lethargic Occasional abdominal pain but no nausea no vomiting Has not been eating enough 05/19/2025 The patient was seen and examined in telemetry unit He has been a little better today but he still has profound weakness Denies any significant pain 05/20/2025 The patient was seen and examined in telemetry unit He has been very weak and lethargic Denies any significant distress otherwise in no pain Still he wants to try things to get better 05/21/2025 The patient was seen and examined in medical telemetry unit He remains very weak but looks a little better today Complains weakness but does not have any other acute distress He is willing to participate in physical therapy Review of Systems Review of Systems: At least ten systems reviewed and negative, except as noted in the HPI. Physical Exam Physical Exam: Lying in bed looking depressed and lethargic Constitutional: + ill appearing and + thin Eyes: PERRL, conjunctivae normal, anicteric sclerae ENMT: external ear and nose normal, oropharynx normal Neck: trachea midline, no thyromegaly Respiratory: no respiratory distress Auscultation: + diminished lung sounds and + crackles (Occasional crackles at the bases) Cardiovascular: Rate/Rhythm: regular rate and regular rhythm; not tachycardic Heart Sounds: normal S1 and normal S2; no murmur Extremities: + edema (Trace to 1+ edema bilaterally) Gastrointestinal (Abdomen): Inspection/Auscultation: normal bowel sounds; abdomen not distended (Minimally distended but soft) Percussion/Palpation: abdomen soft; abdomen nontender (Mildly tender all over without guarding and no rigidity) Neurologic: normal touch/pain/proprioception and moves all extremities ( Remains extremely weak and lethargic); no focal motor deficits Lymphatic: no cervical or axillary lymphadenopathy Results & Data Results & Data Vital Signs (Past 12 Hours) Vital Signs Temp Pulse Pulse Resp BP Pulse Ox O2 Del Method 05/21/25 10:49 36.4 C L 88 16 138/70 95 Room Air 05/21/25 10:24 77 05/21/25 07:46 Room Air 05/21/25 07:43 36.5 C 79 16 144/67 H 97 Room Air 05/21/25 04:55 36.5 C 78 17 140/64 95 Room Air Laboratory Results Short CBC 05/21/25 Range/Units 07:36 WBC 3.82 L (4.8-10.8) K/ul Hgb 7.7 L (14.0-18.0) g/dl Hct 23.0 L (42.0-52.0) % Plt Count 77 L (130-400) K/uL BMP 05/21/25 07:36 Sodium 134 L Potassium 4.9 Chloride 112 H Carbon Dioxide 17 L BUN 87 H Creatinine 2.64 H Glucose 166 H Calcium 8.5 L Medications Administered Current Inpatient Medications Acetaminophen (Acetaminophen 325 Mg Tab) 650 mg PO Q4H PRN PRN Reason: Pain or Fever Stop: 06/11/25 17:05 Last Admin: 05/18/25 10:17 Dose: 650 mg Allopurinol (Allopurinol 100 Mg Tab) 200 mg PO QAM [facility] Stop: 06/12/25 08:59 Last Admin: 05/21/25 08:42 Dose: 200 mg Ciprofloxacin (Ciprofloxacin 500 Mg Tab) 500 mg PO DAILY [facility]; Protocol Stop: 06/19/25 08:59 Last Admin: 05/21/25 10:16 Dose: 500 mg Duloxetine HCl (Duloxetine Hcl 30 Mg Cap) 30 mg PO QAM [facility] Stop: 06/12/25 08:59 Last Admin: 05/21/25 10:16 Dose: 30 mg Finasteride (Finasteride 5 Mg Tab) 5 mg PO QAM [facility] Stop: 06/12/25 08:59 Last Admin: 05/21/25 10:15 Dose: 5 mg Promethazine HCl (Phenergan) 6.25 mg in 50.25 mls @ 201 mls/hr IV Q6H PRN PRN Reason: Nausea And Vomiting Stop: 06/15/25 11:33 Last Infusion: 05/17/25 22:29 Dose: Infused Insulin Aspart (Insulin Aspart Per Unit Charge) 0 units SC ACHS [facility] Stop: 06/11/25 16:59 Last Admin: 05/21/25 08:52 Dose: 18 units Insulin Glargine (Lantus Per Unit Charge) 12 units SC DAILY [facility] Stop: 06/19/25 08:59 Last Admin: 05/21/25 08:53 Dose: 12 units Lactulose (Lactulose Syrup 10 Gm/15 Ml Btl 960 Ml) 20 gm PO BID [facility] Stop: 05/22/25 12:00 Last Admin: 05/21/25 08:46 Dose: Not Given Lactulose (Lactulose Syrup 20 Gm/30 Ml Udc) 20 gm PO BID [facility] Stop: 06/21/25 20:59 Levocarnitine (Levocarnitine (With Sugar) 100 Mg/Ml Solution) 1,000 mg PO BID [facility] Stop: 06/20/25 20:59 Lorazepam (Lorazepam 2 Mg/1 Ml Vial) 0.5 mg IV Q4H PRN PRN Reason: Anxiety/Agitation Stop: 06/18/25 14:38 Magnesium Chloride (Magnesium Chloride W/Calcium 64mg Delayed Rel Tab) 64 mg PO BID [facility]I Stop: 06/12/25 20:59 Last Admin: 05/21/25 10:16 Dose: 64 mg Magnesium Hydroxide (Magnesium Hydroxide Susp 30 Ml Udc) 30 ml PO Q12H PRN PRN Reason: Constipation Stop: 06/11/25 17:05 Miscellaneous Information (Pharmacy Glycemic Mgmt Consult) 1 each N/A UD PRN PRN Reason: Consult Stop: 06/11/25 16:36 Oxybutynin Chloride (Oxybutynin Chloride 5 Mg Tab) 5 mg PO TID PRN PRN Reason: Bladder Spasms Stop: 06/11/25 16:29 Last Admin: 05/21/25 08:43 Dose: 5 mg Oxybutynin Chloride (Oxybutynin Chloride Xl 5 Mg Tabcr) 5 mg PO QAM [facility] Stop: 06/12/25 08:59 Last Admin: 05/21/25 10:16 Dose: 5 mg Pantoprazole Sodium (Pantoprazole 40 Mg Tab) 40 mg PO BID [facility] Stop: 06/11/25 20:59 Last Admin: 05/21/25 10:17 Dose: 40 mg Phenazopyridine HCl (Phenazopyridine Hcl 200 Mg Tab) 200 mg PO TID PRN PRN Reason: Dysuria Stop: 06/12/25 21:53 Last Admin: 05/21/25 08:41 Dose: 200 mg Polyethylene Glycol (Polyethylene (Miralax) 17 Gm Pack) 17 gm PO DAILY PRN PRN Reason: Constipation Stop: 06/11/25 17:05 (1) Hematuria Hematuria type: unspecified type Qualified Code(s): R31.9 - Hematuria, unspecified
--- NOTE | 2025-05-21 12:27 | Pharmacy Report ---
Pharmacy Glycemic Short Note 2 - Date of Service May 21, 2025 - Glycemic Short BSG Results (Last 24 hours): 05/20/25 05/20/25 05/20/25 13:52 16:03 20:19 Glucose POC Glucose 227 H 151 H 179 H 05/21/25 05/21/25 05/21/25 07:36 08:20 12:05 Glucose 166 H POC Glucose 275 H 265 H OUTPATIENT ANTIDIABETIC REGIMEN: * Lantus 38 units qAM, novolog SSI HbA1c: 5.8% (05/13/25) ASSESSMENT: 05/21/25: * Luis received 45 units of insulin yesterday (14 were basal) * Fasting BSG this AM significantly elevated, still trending up. Will increase basal insulin with HS dose if BSGs elevated. Managing conservatively since patient is weak and family is considering comfort measures. * Tighten carbohydrate ratio as post prandials are elevated. BSGs very labile on past admissions at times requiring tight coverage and other times looser. Will also adjust conservatively due to condition. 05/19/25 * BSG elevated/insulin needs increasing over the past 48 hours with unclear c ause (05/17-05/19: 17 units, 37 units, 41 units). Potentially due to basal deficiency? although Lantus 19 units caused fasting hypoglycemia earlier this stay. Current regimen is already bolus-heavy, therefore will trial increasing basal insulin. * Lunch BSG resulted at 311 mg/dL. Re-peat BSG drawn about 1 hour post lunchtime insulin coverage decreased to 227 mg/dL. Novolog carb ratio was tightened ye sterday. Change did not appear to have a significant impact on post prandials. 05/17/25: * Patient received total of 12 units of insulin yesterday, of which 10 units were basal insulin * Fasting BSG trending down - 80 mg/dL this AM, will scale back basal to hopefully avoid future hypoglycemia. Appears PO intake was poorer yesterday. * Continue same CF/CR for now 05/14/25: * Blood sugars labile yesterday, ranging 61-218 mg/dL * Will plan on tightening Novolog given upward trend throughout the day * Will utilize past inpatient glycemic data to guide basal 05/13/25: * 74 year old admitted with gross hematuria. Type 2 diabetic - pharmacy consulted for glycemic management. Patient given one time dose of Lantus last evening as likely did not receive his AM dose that morning per reports. RN reporting patient has been confused, not eating much. BSGs this AM lower 61 mg/d, 74 mg/dL - will hold AM basal but have scale on for this evening with reduced dosing. PLAN FOR INPATIENT GLYCEMIC CONTROL: * Basal insulin * Lantus 12 units SC daily * Lantus 0-5 units SQ HS based on BSG (if BSG is 180mg/dL or greater) * Bolus insulin * NovoLog per scale ACHS or Q6hrs while NPO * Goal Range: Low 120 mg/dL - High 150 mg/dL * Correction Factor: 20 mg/dL/unit * Nutritional / Prandial insulin per carb ratio of 1 unit per 4 grams CHO consumed
[2025-05-21] MEDS: LANTUS PER UNIT CHARGE SC SCH (20:44)
[2025-05-21] MEDS: levOCARNitine (with sugar) 100 MG/ML SOLUTION PO SCH (20:45)
--- NOTE | 2025-05-22 13:35 | Hospitalist Progress Note ---
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: Plan Patient is a medically complex 74-year-old male with past medical history significant for decompensated FOFANA cirrhosis s/p TIPS with esophageal varices, recurrent ascites with SBP, HCC [on supportive treatment only/not candidate for cancer directed therapy due to age and comorbidities per outpatient oncology documentation], thrombocytopenia, chronic anemia, gastric antral vascular ectas ia, hepatic encephalopathy, non-occlusive portal vein thrombosis, prostate cancer s/p radiotherapy on chronic Lupron suppression c/b radiation cystitis with recurrent hematuria, CKD stage IIIa, insulin-requiring DMII and other problems listed below who presented to the ED via EMS from [facility] with gross hematuria. Palliative care encounter Appreciate palliative care input and recommendation I had a long discussion with the son, the patient in presence of the nursing staff Detailed discussion about current medical condition specially decompensated cirrhosis, hepatorenal syndrome, chronic and ongoing anemia, hematuria and requiring blood transfusion The patient and the son are agreeable to continue with aggressive management to get him better and possible placement in alf They wanted to have blood transfusion and blood work and continue with the PT and OT If the condition does not get any better within next day or 2 the patient and the son will think about comfort care only He has been stable but remains very weak and lethargic Will continue with current management and physical therapy for possible discharge in SNF Remains extremely weak and has not been participating in physical therapystrongly advised to participate Otherwise his medical status remains stable but critical Decompensated FOFANA cirrhosis s/p TIPs w/ esophageal varices Recurrent ascites, history of SBP Waxing/waning mentation level in ED --> ? possible baseline Recently completed ABX course last month during admission at [facility] for SBP -Last paracentesis done on 05/05 at [facility] -Ascitic fluid cx grew Serratia marcescens susceptible to cefepime/Rocephin/cipro/gent/Bactrim -Was started on prophylactic cipro for SBP prevention as directed by hepatology CTAP: stable findings of cirrhosis, portal hypertension, and small amount of ascites. --Patient currently requiring weekly paracentesis per family: Advised to follow- up with hepatology as outpatient Completed IV Rocephin course Resuming home chronic suppressive ciprofloxacin therapy before for SBP prevention Continue home lactulose, Xifaxan Resume home diuretics as able Monitor volume status Appreciate palliative care input and recommendation Status post repeat paracentesis of 2.4 L on 05/17/2025 Remains extremely weak and lethargic Prognosis remains extremely poor Remains medically stable but critical Profound weakness and tiredness and not a candidate for rehab Will discuss with the son for further management towards comfort care/hospice care in a facility Remains weak and lethargic and will continue with the current management Denies any worsening symptoms of cirrhosis except profound weakness Acute blood loss anemia likely due to recurrent hematuria secondary to chronic radiation cystitis --CT ABD:Small amount of gas in the nondistended urinary bladder. Small amount of patchy density dependently in the urinary bladder, debris versus clot. Stable findings of cirrhosis, portal hypertension, and small amount of ascites. Increased size of small right pleural effusion. --S/P 2 units PRBCs Monitor and transfuse as needed H&H Continue Kan catheter for now Appreciate urology input Avoid anticoagulation Bladder scan as needed Urology following: Recommends no intervention at this time. Recommends to follow-up with [facility] urology Dr. Peraza upon discharge Hemoglobin 9.5 today Hematuria improving-hemoglobin hemoglobin minimally low at 8.4 minimally low at 8.4 as of 05/18/2025 as of 05/18/2025 Hematuria seems to be improving and he does not have any abdominal pain or distention Hemoglobin remains on the lower side at 7.7 and will monitor- remains stable No more hematuria- urine remains dark in color and the patient was advised to drink more fluid Complicated Urinary tract infection--POA H/O prostate cancer S/P radiation, Lupron Urine culture: Preliminary growing VRE Enterococcus faecium, Mary-sensitive to daptomycin Continue Daptomycin plan to complete 7 day course Continue Kan catheter for now Urology on board Will finish the course of antibiotic will finish the course of antibiotic Acute kidney injury on CKD stage IIIa Baseline 1.8-2.0 Creatinine 2.1 today Monitor renal function Avoid nephrotoxic agents as able Appreciate nephrology input Renal function stable and the creatinine level is 2.69 Will monitor PRP tomorrow- creatinine remains elevated at 2.77 with BUN of 91 Hyperkalemia Likely due to LUCRETIA, poor oral intake continue to hold Aldactone Monitor potassium levels IV Lasix per nephrology Appreciate nephrology input Potassium 5.5 today Restarted Lokelma -potassium level is 4.7 as of 05/18/2025 Potassium remains stable at 4.8 Her furosemide is on hold for now Hypomagnesemia Replete and monitor Abnormal Head CT-Chronic Subdural hematoma/Hygroma Transient blurry vision Compression of brain without herniation --CT head:There are shifting subdural homogeneously low attenuating collections, which is now increased on the right, and the prior left-sided subdural collection has resolved. There is now approximately 3 mm of leftward midline shift. These may represent chronic subdural hematomas or hygromas. -Recent ground-level fall on 04/01/25 leading to SDH Repeat head CT at [facility] on 04/15 --> resolution of previously described subarachnoid and intraventricular hemorrhage S/p course of Keppra while at [facility], no surgical intervention required --MRI Brain:No evidence of acute intracranial pathology. There is a right subdural fluid collection measuring 12.5 mm in maximal diameter causing 3.5 mm of midline shift to the left. --MRA Head:Negative MRA of the brain. --Neck MRA:Negative MRA of the neck. Neuro Checks Appreciate neurology input: No intervention currently needed, monitor Cervical stenosis at C5-C6 As above Consider orthopedic spine evaluation-Input appreciated.No additional measures Increased size of small R pleural effusion On 2L NC, resp status stable Continue to monitor for now Received IV Lasix Insulin-dependent DM II Hgb A1c 9.2% 1mo ago HbA1c 5.8 currently Continue insulin per protocol Appreciate glycemic pharm assistance Blood sugar remains elevated and getting SSI to control it Antineoplastic chemotherapy induced pancytopenia UDAY Continue iron supplementation Monitor CBC - remains stable and will monitor Gout Continue allopurinol GERD Continue PPI DVT Px: SCDs/TEDs Re: Hematuria, Anemia Code Status: DNR/DNI Disposition: Await palliative care recommendation Admission and Anticipated Discharge Date Admission Date: May 12, 2025 Subjective 05/18/2025 The patient was seen and examined in telemetry unit He has been very weak and lethargic Occasional abdominal pain but no nausea no vomiting Has not been eating enough 05/19/2025 The patient was seen and examined in telemetry unit He has been a little better today but he still has profound weakness Denies any significant pain 05/20/2025 The patient was seen and examined in telemetry unit He has been very weak and lethargic Denies any significant distress otherwise in no pain Still he wants to try things to get better 05/21/2025 The patient was seen and examined in medical telemetry unit He remains very weak but looks a little better today Complains weakness but does not have any other acute distress He is willing to participate in physical therapy 05/22/2025 The patient was seen and examined in medical telemetry unit He has been stable but very weak and lethargic and has not been participating in physical therapy due to weakness Denies any significant symptoms except weakness He was strongly advised to participate in physical therapy Review of Systems Review of Systems: At least ten systems reviewed and negative, except as noted in the HPI. Physical Exam Physical Exam: Lying in bed looking depressed and lethargic Constitutional: + ill appearing and + thin Eyes: PERRL, conjunctivae normal, anicteric sclerae ENMT: external ear and nose normal, oropharynx normal Neck: trachea midline, no thyromegaly Respiratory: no respiratory distress Auscultation: + diminished lung sounds and + crackles (Occasional crackles at the bases) Cardiovascular: Rate/Rhythm: regular rate and regular rhythm; not tachycardic Heart Sounds: normal S1 and normal S2; no murmur Extremities: + edema (Trace to 1+ edema bilaterally) Gastrointestinal (Abdomen): Inspection/Auscultation: normal bowel sounds; abdomen not distended (Minimally distended but soft) Percussion/Palpation: abdomen soft; abdomen nontender (Mildly tender all over without guarding and no rigidity) Neurologic: normal touch/pain/proprioception and moves all extremities (Remains extremely weak and lethargic); no focal motor deficits Lymphatic: no cervical or axillary lymphadenopathy Results & Data Results & Data Vital Signs (Past 12 Hours) Vital Signs Temp Pulse Pulse Resp BP Pulse Ox O2 Del Method 05/22/25 11:27 36.4 C L 88 20 130/65 93 Room Air 05/22/25 09:40 82 05/22/25 08:06 36.7 C 80 18 139/65 96 Room Air 05/22/25 07:41 Room Air 05/22/25 03:13 36.6 C 84 17 150/70 H 96 Room Air Medications Administered Current Inpatient Medications Acetaminophen (Acetaminophen 325 Mg Tab) 650 mg PO Q4H PRN PRN Reason: Pain or Fever Stop: 06/11/25 17:05 Last Admin: 05/18/25 10:17 Dose: 650 mg Allopurinol (Allopurinol 100 Mg Tab) 200 mg PO QAM [facility] Stop: 06/12/25 08:59 Last Admin: 05/22/25 08:33 Dose: 200 mg Ciprofloxacin (Ciprofloxacin 500 Mg Tab) 500 mg PO DAILY [facility]; Protocol Stop: 06/19/25 08:59 Last Admin: 05/21/25 10:16 Dose: 500 mg Duloxetine HCl (Duloxetine Hcl 30 Mg Cap) [facility] Stop: 06/12/25 08:59 Last Admin: 05/21/25 10:16 Dose: 30 mg Finasteride (Finasteride 5 Mg Tab) 5 mg PO QAM [facility] Stop: 06/12/25 08:59 Last Admin: 05/22/25 08:35 Dose: 5 mg Promethazine HCl (Phenergan) 6.25 mg in 50.25 mls @ 201 mls/hr IV Q6H PRN PRN Reason: Nausea And Vomiting Stop: 06/15/25 11:33 Last Infusion: 05/17/25 22:29 Dose: Infused Insulin Aspart (Insulin Aspart Per Unit Charge) 0 units SC [facility] Stop: 06/11/25 16:59 Last Admin: 05/22/25 12:44 Dose: 4 units Insulin Glargine (Lantus Per Unit Charge) 12 units SC DAILY [facility] Stop: 06/19/25 08:59 Last Admin: 05/22/25 08:45 Dose: 12 units Insulin Glargine (Lantus Per Unit Charge) 0 units SC HS [facility]; Protocol Stop: 06/20/25 20:59 Last Admin: 05/21/25 20:44 Dose: 5 units Lactulose (Lactulose Syrup 20 Gm/30 Ml Udc) 20 gm PO BID [facility] Stop: 06/21/25 20:59 Levocarnitine (Levocarnitine (With Sugar) 100 Mg/Ml Solution) 1,000 mg PO BID [facility] Stop: 06/20/25 20:59 Last Admin: 05/22/25 08:34 Dose: 1,000 mg Lorazepam (Lorazepam 2 Mg/1 Ml Vial) 0.5 mg IV Q4H PRN PRN Reason: Anxiety/Agitation Stop: 06/18/25 14:38 Magnesium Chloride (Magnesium Chloride W/Calcium 64mg Delayed Rel Tab) 64 mg PO BID [facility] Stop: 06/12/25 20:59 Last Admin: 05/22/25 08:33 Dose: 64 mg Magnesium Hydroxide (Magnesium Hydroxide Susp 30 Ml Udc) 30 ml PO Q12H PRN PRN Reason: Constipation Stop: 06/11/25 17:05 Miscellaneous Information (Pharmacy Glycemic Mgmt Consult) 1 each N/A UD PRN PRN Reason: Consult Stop: 06/11/25 16:36 Oxybutynin Chloride (Oxybutynin Chloride 5 Mg Tab) 5 mg PO TID PRN PRN Reason: Bladder Spasms Stop: 06/11/25 16:29 Last Admin: 05/21/25 08:43 Dose: 5 mg Oxybutynin Chloride (Oxybutynin Chloride Xl 5 Mg Tabcr) 5 mg PO QAM [facility] Stop: 06/12/25 08:59 Last Admin: 05/22/25 08:34 Dose: 5 mg Pantoprazole Sodium (Pantoprazole 40 Mg Tab) 40 mg PO BID [facility] Stop: 06/11/25 20:59 Last Admin: 05/22/25 08:34 Dose: 40 mg Phenazopyridine HCl (Phenazopyridine Hcl 200 Mg Tab) 200 mg PO TID PRN PRN Reason: Dysuria Stop: 06/12/25 21:53 Last Admin: 05/22/25 08:34 Dose: 200 mg Polyethylene Glycol (Polyethylene (Miralax) 17 Gm Pack) 17 gm PO DAILY PRN PRN Reason: Constipation Stop: 06/11/25 17:05 (1) Hematuria Hematuria type: unspecified type Qualified Code(s): R31.9 - Hematuria, unspecified
[2025-05-22] MEDS: LACTULOSE SYRUP 20 GM/30 ML UDC PO SCH (20:33)
[2025-05-22] MEDS ORDERED: levOCARNitine (with sugar) 100 MG/ML SOLUTION PO SCH (21:00)
[2025-05-23 06:33] LABS: Basophils # (auto) 0.01 K/uL (0.00-0.20); Basophils % (auto) 0.3 %; Eosinophils # (auto) 0.17 K/uL (0.00-0.50); Eosinophils % (auto) 4.7 %; Hematocrit (blood only) 23.3 % (42.0-52.0); Hemoglobin 7.5 g/dl (14.0-18.0); Immature Granulocytes # (auto) 0.04 K/uL (0.01-0.20); Immature Granulocytes % (auto) 1.1 %; Lymphocytes # (auto) 0.41 K/uL (1.20-3.40); Lymphocytes % (auto) 11.5 %; Mean Corpuscular Hemoglobin 31.8 pg (25.0-34.0); Mean Corpuscular Hgb Conc 32.2 g/dL (32.0-36.0); Mean Corpuscular Volume 98.7 fL (80.0-100.0); Mean Platelet Volume 11.3 fL (9.4-12.4); Monocytes # (auto) 0.29 K/uL (0.11-0.59); Monocytes % (auto) 8.1 %; Neutrophils # (auto) 2.66 K/uL (1.40-6.50); Neutrophils % (auto) 74.3 %; Platelet Count 71 K/uL (130-400); RDW Coefficient of Variation 20.1 % (11.5-14.5); RDW Standard Deviation 71.7 fL (36.4-46.3); Red Blood Count 2.36 M/uL (4.70-6.10); White Blood Count 3.58 K/ul (4.8-10.8)
[2025-05-23 06:59] LABS: Albumin Globulin Ratio 0.5 (0.9-2); Albumin Level 2.1 gm/dl (3.4-5.0); BUN Creatinine Ratio 31.2 (10-20); Bilirubin,Total 1.9 mg/dl (0.2-1.0); Calcium 8.6 mg/dl (8.6-10.3); Creatinine Clr Calc Pharmacy 22.4 ml/min; Globulin 4.4 gm/dl (2.5-4.0); Magnesium 2.1 mg/dl (1.7-2.4); Phosphorus 4.6 mg/dl (2.5-4.9); Potassium 4.8 mmol/L (3.5-5.1); Total Protein 6.5 gm/dl (6.0-8.3)
[2025-05-23 07:02] LABS: INR 1.2 (0.9-1.1); Prothrombin Time 12.4 Seconds (9.0-12.0)
[2025-05-23 07:29] LABS: Anisocytosis Present
--- NOTE | 2025-05-23 13:54 | Hospitalist Progress Note ---
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: Plan Patient is a medically complex 74-year-old male with past medical history significant for decompensated FOFANA cirrhosis s/p TIPS with esophageal varices, recurrent ascites with SBP, HCC [on supportive treatment only/not candidate for cancer directed therapy due to age and comorbidities per outpatient oncology documentation], thrombocytopenia, chronic anemia, gastric antral vascular ectas ia, hepatic encephalopathy, non-occlusive portal vein thrombosis, prostate cancer s/p radiotherapy on chronic Lupron suppression c/b radiation cystitis with recurrent hematuria, CKD stage IIIa, insulin-requiring DMII and other problems listed below who presented to the ED via EMS from [facility] with gross hematuria. Decompensated FOFANA cirrhosis s/p TIPs w/ esophageal varices Recurrent ascites, history of SBP Recently completed ABX course last month during admission at [facility] for SBP -Last paracentesis done on 05/05 at [facility] -Ascitic fluid cx grew Serratia marcescens susceptible to cefepime/Ro cephin/cipro/gent/Bactrim -Was started on prophylactic cipro for SBP prevention as directed by hepatology CTAP: stable findings of cirrhosis, portal hypertension, and small amount of ascites. --Patient currently requiring weekly paracentesis per family: Advised to follow- up with hepatology as outpatient Completed IV Rocephin course Resuming home chronic suppressive ciprofloxacin therapy before for SBP prevention Continue home lactulose, Xifaxan Resume home diuretics as able Palliative care had a family discussion with patient on 05/19; plan to send over to her side where patient's resides and possibly switch over to comfort care. Acute blood loss anemia likely due to recurrent hematuria secondary to chronic radiation cystitis --CT ABD:Small amount of gas in the nondistended urinary bladder. Small amount of patchy density dependently in the urinary bladder, debris versus clot. Stable findings of cirrhosis, portal hypertension, and small amount of ascites. Increased size of small right pleural effusion. --S/P 2 units PRBCs Monitor and transfuse as needed H&H Continue Kan catheter for now Complicated Urinary tract infection--POA H/O prostate cancer S/P radiation, Lupron Urine culture: Preliminary growing VRE Enterococcus faecium, Mary-sensitive to daptomycin completed antibiotics course Acute kidney injury on CKD stage IIIa Baseline 1.8-2.0 Progressive CKD likely due to end stage liver disease Hyperkalemia Likely due to LUCRETIA, poor oral intake continue to hold Aldactone Monitor potassium levels Hypomagnesemia Replete and monitor Abnormal Head CT-Chronic Subdural hematoma/Hygroma Transient blurry vision Compression of brain without herniation --CT head:There are shifting subdural homogeneously low attenuating collections, which is now increased on the right, and the prior left-sided subdural collection has resolved. There is now approximately 3 mm of leftward midline shift. These may represent chronic subdural hematomas or hygromas. -Recent ground-level fall on 04/01/25 leading to SDH Repeat head CT at [facility] on 04/15 --> resolution of previously described subarachnoid and intraventricular hemorrhage S/p course of Keppra while at [facility], no surgical intervention required --MRI Brain:No evidence of acute intracranial pathology. There is a right subdural fluid collection measuring 12.5 mm in maximal diameter causing 3.5 mm of midline shift to the left. --MRA Head:Negative MRA of the brain. --Neck MRA:Negative MRA of the neck. Neuro Checks Appreciate neurology input: No intervention currently needed, monitor Cervical stenosis at C5-C6 As above Consider orthopedic spine evaluation-Input appreciated.No additional measures Insulin-dependent DM II Hgb A1c 9.2% 1mo ago HbA1c 5.8 currently Continue insulin per protocol Appreciate glycemic pharm assistance Blood sugar remains elevated and getting SSI to control it Antineoplastic chemotherapy induced pancytopenia UDAY Continue iron supplementation Monitor CBC - remains stable and will monitor Gout Continue allopurinol GERD Continue PPI DVT Px: SCDs/TEDs Re: Hematuria, Anemia Code Status: DNR/DNI Disposition; awaiting placement to rehab. Time spent evaluating patient, direct bedside care, chart review, placing orders, interpretation of diagnostic studies, discussion with consultants, patient, and family members, as well as other required patient management activities is 50 minutes Please note the above document was generated using voice recognition software. It may contain grammatical, syntax or spelling errors. Any formal questions or concerns about the content, text or information contained within the body of this dictation should be directly addressed to the provider for clarification Admission and Anticipated Discharge Date Admission Date: May 12, 2025 Subjective Patient seen and examined at bedside. He continues to be lethargic; responds to some questions but goes back to sleep. No significant events overnight Review of Systems Review of Systems: All systems reviewed & are unremarkable except as noted in Subjective Physical Exam Physical Exam: Constitutional: Appears tired; moaning; intermittently answers questions. Respiratory: Bilateral vesicular breath sound Cardiovascular: RRR, no murmur, no edema Vessels: no JVD or carotid bruit Chest: normal inspection of chest Abdomen: Distended, nontender. Musculoskeletal: no cyanosis or clubbing, extremities motor strength 5/5 Skin: no rashes, warm and dry normal turgor Neurologic: Grossly moves all extremities Results & Data Results & Data Vital Signs (Past 12 Hours) Vital Signs Temp Pulse Pulse Resp BP Pulse Ox O2 Del Method 05/23/25 11:24 36.3 C L 92 H 20 122/65 93 Room Air 05/23/25 09:59 85 05/23/25 08:28 36.6 C 83 20 135/62 97 Room Air 05/23/25 07:32 Room Air 05/23/25 03:55 36.5 C 85 20 149/73 H 96 Room Air (1) Hematuria Hematuria type: unspecified type Qualified Code(s): R31.9 - Hematuria, unspecified
[2025-05-23] MEDS: LANTUS PER UNIT CHARGE SC SCH (21:02)
--- NOTE | 2025-05-24 09:52 | Pharmacy Report ---
Pharmacy Glycemic Short Note 2 - Date of Service May 24, 2025 - Glycemic Short BSG Results (Last 24 hours): 05/23/25 05/23/25 05/23/25 11:53 17:01 20:30 POC Glucose 215 H 279 H 239 H 05/24/25 08:08 POC Glucose 149 H OUTPATIENT ANTIDIABETIC REGIMEN: * Lantus 38 units qAM, novolog SSI HbA1c: 5.8% (05/13/25) ASSESSMENT: 05/24/25: * Luis received 45 units of insulin yesterday (17 were basal) * Fasting BSG this AM within goal, will continue with yesterday's basal regimen * BSGs trend up throughout the day, if continuing today again will tighten carbohydrate ratio again * Will continue conservative adjustments due to patient clinical status. 05/21/25: * Luis received 45 units of insulin yesterday (14 were basal) * Fasting BSG this AM significantly elevated, still trending up. Will increase basal insulin with HS dose if BSGs elevated. Managing conservatively since patient is weak and family is considering comfort measures. * Tighten carbohydrate ratio as post prandials are elevated. BSGs very labile on past admissions at times requiring tight coverage and other times looser. Will also adjust conservatively due to condition. 05/19/25 * BSG elevated/insulin needs increasing over the past 48 hours with unclear cause (05/17-05/19: 17 units, 37 units, 41 units). Potentially due to basal deficiency? although Lantus 19 units caused fasting hypoglycemia earlier this stay. Current regimen is already bolus-heavy, therefore will trial increasing basal insulin. * Lunch BSG resulted at 311 mg/dL. Re-peat BSG drawn about 1 hour post lunchtime insulin coverage decreased to 227 mg/dL. Novolog carb ratio was tightened yesterday. Change did not appear to have a significant impact on post prandials. 05/17/25: * Patient received total of 12 units of insulin yesterday, of which 10 units were basal insulin * Fasting BSG trending down - 80 mg/dL this AM, will scale back basal to hopefully avoid future hypoglycemia. Appears PO intake was poorer yesterday. * Continue same CF/CR for now 05/14/25: * Blood sugars labile yesterday, ranging 61-218 mg/dL * Will plan on tightening Novolog given upward trend throughout the day * Will utilize past inpatient glycemic data to guide basal 05/13/25: * 74 year old admitted with gross hematuria. Type 2 diabetic - pharmacy consulted for glycemic management. Patient given one time dose of Lantus last evening as likely did not receive his AM dose that morning per reports. RN reporting patient has been confused, not eating much. BSGs this AM lower 61 mg/d, 74 mg/dL - will hold AM basal but have scale on for this evening with r educed dosing. PLAN FOR INPATIENT GLYCEMIC CONTROL: * Basal insulin * Lantus 12 units SC daily * Lantus 0-5 units SQ HS based on BSG (if BSG is 180mg/dL or greater) * Bolus insulin * NovoLog per scale ACHS or Q6hrs while NPO * Goal Range: Low 120 mg/dL - High 160 mg/dL * Correction Factor: 20 mg/dL/unit * Nutritional / Prandial insulin per carb ratio of 1 unit per 4 grams CHO consumed
--- NOTE | 2025-05-24 11:33 | Hospitalist Progress Note ---
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: Plan Patient is a medically complex 74-year-old male with past medical history significant for decompensated FOFANA cirrhosis s/p TIPS with esophageal varices, recurrent ascites with SBP, HCC [on supportive treatment only/not candidate for cancer directed therapy due to age and comorbidities per outpatient oncology documentation], thrombocytopenia, chronic anemia, gastric antral vascular ectas ia, hepatic encephalopathy, non-occlusive portal vein thrombosis, prostate cancer s/p radiotherapy on chronic Lupron suppression c/b radiation cystitis with recurrent hematuria, CKD stage IIIa, insulin-requiring DMII and other problems listed below who presented to the ED via EMS from [facility] with gross hematuria. Decompensated FOFANA cirrhosis s/p TIPs w/ esophageal varices Recurrent ascites, history of SBP Recently completed ABX course last month during admission at [facility] for SBP -Last paracentesis done on 05/05 at [facility] -Ascitic fluid cx grew Serratia marcescens susceptible to cefepime/Ro cephin/cipro/gent/Bactrim -Was started on prophylactic cipro for SBP prevention as directed by hepatology CTAP: stable findings of cirrhosis, portal hypertension, and small amount of ascites. --Patient currently requiring weekly paracentesis per family: Advised to follow- up with hepatology as outpatient Completed IV Rocephin course Resuming home chronic suppressive ciprofloxacin therapy before for SBP prevention Continue home lactulose, Xifaxan Resume home diuretics as able Palliative care had a family discussion with patient on 05/19; plan to send over to her side where patient's resides and possibly switch over to comfort care. Acute blood loss anemia likely due to recurrent hematuria secondary to chronic radiation cystitis --CT ABD:Small amount of gas in the nondistended urinary bladder. Small amount of patchy density dependently in the urinary bladder, debris versus clot. Stable findings of cirrhosis, portal hypertension, and small amount of ascites. Increased size of small right pleural effusion. --S/P 2 units PRBCs Monitor and transfuse as needed H&H Continue Kan catheter for now Complicated Urinary tract infection--POA H/O prostate cancer S/P radiation, Lupron Urine culture: Preliminary growing VRE Enterococcus faecium, Mary-sensitive to daptomycin completed antibiotics course Acute kidney injury on CKD stage IIIa Baseline 1.8-2.0 Progressive CKD likely due to end stage liver disease Hyperkalemia Likely due to LUCRETIA, poor oral intake continue to hold Aldactone Monitor potassium levels Hypomagnesemia Replete and monitor Abnormal Head CT-Chronic Subdural hematoma/Hygroma Transient blurry vision Compression of brain without herniation --CT head:There are shifting subdural homogeneously low attenuating collections, which is now increased on the right, and the prior left-sided subdural collection has resolved. There is now approximately 3 mm of leftward midline shift. These may represent chronic subdural hematomas or hygromas. -Recent ground-level fall on 04/01/25 leading to SDH Repeat head CT at [facility] on 04/15 --> resolution of previously described subarachnoid and intraventricular hemorrhage S/p course of Keppra while at [facility], no surgical intervention required --MRI Brain:No evidence of acute intracranial pathology. There is a right subdural fluid collection measuring 12.5 mm in maximal diameter causing 3.5 mm of midline shift to the left. --MRA Head:Negative MRA of the brain. --Neck MRA:Negative MRA of the neck. Neuro Checks Cervical stenosis at C5-C6 As above Consider orthopedic spine evaluation-Input appreciated.No additional measures Insulin-dependent DM II Hgb A1c 9.2% 1mo ago HbA1c 5.8 currently Continue insulin per protocol Appreciate glycemic pharm assistance Blood sugar remains elevated and getting SSI to control it Antineoplastic chemotherapy induced pancytopenia UDAY Continue iron supplementation Monitor CBC - remains stable and will monitor Gout Continue allopurinol GERD Continue PPI DVT Px: SCDs/TEDs Re: Hematuria, Anemia Code Status: DNR/DNI Disposition; awaiting placement to rehab. Time spent evaluating patient, direct bedside care, chart review, placing orders, interpretation of diagnostic studies, discussion with consultants, patient, and family members, as well as other required patient management activities is 50 minutes Please note the above document was generated using voice recognition software. It may contain grammatical, syntax or spelling errors. Any formal questions or concerns about the content, text or information contained within the body of this dictation should be directly addressed to the provider for clarification Admission and Anticipated Discharge Date Admission Date: May 12, 2025 Subjective Patient seen and examined at bedside. He is awake well by voice; reports that he does not have much of an appetite. Denies any pain or discomfort Review of Systems Review of Systems: All systems reviewed & are unremarkable except as noted in Subjective Physical Exam Physical Exam: Constitutional: Appears tired; moaning; intermittently answers questions. Respiratory: Bilateral vesicular breath sound Cardiovascular: RRR, no murmur, no edema Vessels: no JVD or carotid bruit Chest: normal inspection of chest Abdomen: Distended, nontender. Musculoskeletal: no cyanosis or clubbing, extremities motor strength 5/5 Skin: no rashes, warm and dry normal turgor Neurologic: Grossly moves all extremities Results & Data Results & Data Vital Signs (Past 12 Hours) Vital Signs Temp Pulse Pulse Resp BP Pulse Ox O2 Del Method 05/24/25 11:20 Room Air 05/24/25 08:01 36.4 C L 85 18 143/67 H 95 Room Air 05/24/25 07:32 85 (1) Hematuria Hematuria type: unspecified type Qualified Code(s): R31.9 - Hematuria, unspecified
[2025-05-24 11:42] VITALS: BP 137/51; RESP 20; TEMP 97.7; O2SAT 94
--- NOTE | 2025-05-24 12:33 | Discharge Summary ---
Date of Service May 24, 2025 Admission HPI Per Admitting Provider Patient is a medically complex 74-year-old male with past medical history significant for decompensated FOFANA cirrhosis s/p TIPS with esophageal varices, recurrent ascites with SBP, HCC [on supportive treatment only/not candidate for cancer directed therapy due to age and comorbidities per outpatient oncology documentation], thrombocytopenia, chronic anemia, gastric antral vascular ectasia, hepatic encephalopathy, non-occlusive portal vein thrombosis, prostate cancer s/p radiotherapy on chronic Lupron suppression c/b radiation cystitis with recurrent hematuria, CKD stage IIIa, insulin-requiring DMII and other prob lems listed below who presented to the ED via EMS from [facility] with gross hematuria. History mostly obtained from documentation provided by [facility], discussion with ED provider and associated chart review. Patient with waxing/waning mentation level during conversation therefore it was difficult to obtain much information from him. Most recent hospital confinement at [facility] from 04/01/25-05/07/25 after sustaining a GLF and was found to have a SDH/SAH. Seen and evaluated by NSGY. Completed 7-day inpatient course of Kera. No surgical intervention required. Hospital course was complicated by encephalopathy with waxing/waning mental status as well as SBP. Patient underwent paracentesis on 04/09, 04/12, 04/16 and 04/22 with all fluid studies consistent with SBP. Ascitic fluid culture on 04/09 consistent with Serratia marcescens with susceptibility to cefepime, Rocephin, ciprofloxacin, gentamicin and Bactrim. Completed antibiotic course, consisting of IV meropenem and po ciprofloxacin, for SBP on 04/29. He was started on po ciprofloxacin once daily for SBP prophylaxis per hepatology recommendations. Patient also seen and evaluated by nephrology for LUCRETIA and hyperkalemia during that admission. He was also found to have acute on chronic anemia without overt bleeding initially requiring 3 units of PRBCs. He was started on iron supplementation as well based on iron studies. He required Kan catheter placement due to gross hematuria with passage of clots in the setting of radiation cystitis. He then required another 1 unit of PRBCs on 05/03 due to another drop in Hgb which was thought to be due to his gross hematuria and passage of clots. There was an attempt to remove his urinary catheter on 05/03 however he was noted to be retaining therefore it was subsequently replaced. Most recently had paracentesis done on 05/05. Patient was discharged to [facility] on 05/07. Repeat head CT done 04/15 with resolution of previously described subarachnoid and intraventricular hemorrhage. Patient coming today from [facility] with complaint of gross hematuria and clots. Reportedly was also complaining of pain at the distal tip of his penis however upon direct questioning he denies this. Patient is able to recall location, date and time. Has periods of lucidity during conversation and then moments of forgetfulness. Denies any chest pain, SOB, abdominal pain, suprapubic pain or N/V on direct questioning. He does recall that he was scheduled to have paracentesis done today however. No reports of hematochezia, melena or hematemesis per documentation provided by [facility]. Kan catheter was last exchanged on 05/03 during his admission at [facility] after he failed a voiding trial. Not currently on any blood thinners. Admission Exam Per Admitting Provider General/Neurologic: Elderly, chronically ill-appearing. NAD. Laying down in bed. A&Ox2 during periods of lucidity although mentation level waxes/wanes. Easily responsive and opens to both verbal and tactile stimulation. No slurred speech, facial drooping. HEENT: Normocephalic, atraumatic. Conjunctivae normal. External ear and nose normal, oropharynx dry. Respiratory: Normal respiratory effort, lungs clear to auscultation bilaterally. Cardiovascular: Regular rate and rhythm, normal peripheral pulses. No BLE edema. Abdomen/GI: Active bowel sounds. Protuberant, + fluid shift. Nontender to palpation in all quadrants. Extremities/MSK: No cyanosis or clubbing, actively moving all extremities. Principal Diagnosis Decompensated FOFANA cirrhosis s/p TIPs w/ esophageal varices Recurrent ascites, history of SBP Complicated Urinary tract infection--POA Discharge Exam Constitutional: Appears tired; moaning; intermittently answers questions. Respiratory: Bilateral vesicular breath sound Cardiovascular: RRR, no murmur, no edema Vessels: no JVD or carotid bruit Chest: normal inspection of chest Abdomen: Distended, nontender. Musculoskeletal: no cyanosis or clubbing, extremities motor strength 5/5 Skin: no rashes, warm and dry normal turgor Neurologic: Grossly moves all extremities Discharge Data Allergies Allergy/AdvReac Type Severity Reaction Status Date / Time No Known Allergies Allergy Mild Verified 03/03/25 11:08 Consultations 05/12/25 14:42 ED Decision to Admit Stat 05/12/25 15:07 Consult Nephrology Routine Consult Urology Routine 05/13/25 08:52 Consult Neurology Routine 05/15/25 08:44 Consult Orthopedic Spine Surgery Routine 05/15/25 14:11 Consult Palliative Care Routine Ordered Studies 05/12/25 12:08 CT abd pelvis wo con Stat 05/12/25 15:[address] [CT head/brain wo con] Stat 05/13/25 10:37 MR brain wo con Urgent 05/13/25 19:16 MR angio neck wo con Routine MRI Angio Brain [MR angio head wo con] Routine 05/15/25 06:15 MR cervical spine wo/w con Routine 05/17/25 09:34 IR paracentesis abd w/img US Routine Hospital Course (1) Hematuria: (2) Acute blood loss anemia: (3) Chronic radiation cystitis: (4) Acute kidney injury superimposed on stage 3a chronic kidney disease: (5) Hyperkalemia: (6) Abnormal urinalysis: (7) 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: Plan Patient is a medically complex 74-year-old male with past medical history significant for decompensated FOFANA cirrhosis s/p TIPS with esophageal varices, recurrent ascites with SBP, HCC [on supportive treatment only/not candidate for cancer directed therapy due to age and comorbidities per outpatient oncology documentation], thrombocytopenia, chronic anemia, gastric antral vascular ectasia, hepatic encephalopathy, non-occlusive portal vein thrombosis, prostate cancer s/p radiotherapy on chronic Lupron suppression c/b radiation cystitis with recurrent hematuria, CKD stage IIIa, insulin-requiring DMII and other problems listed below who presented to the ED via EMS from [facility] with gross hematuria. Patient was found to have acute on chronic CKD, urinary tract infection. He was treated with antibiotics for the UTI. Patient had waxing and waning mentation throughout the hospitalization. Patient was not motivated to get out of the bed. His appetite had also declined. Palliative care was consulted for valeria ramoseamon; given patient's recent medical events and chronic health conditions; his prognosis is poor and is at high risks of decompensation resulting in multiorgan failure, . Discussion was done with patient's son Alex; he wants her to go to [facility] rehab to be with his . He wants to see how he does with rehab; if he is not able to undergo rehabilitation test plan is to switch over to comfort care/hospice. He is at high risk of readmission Please note the above document was generated using voice recognition software. It may contain grammatical, syntax or spelling errors. Any formal questions or concerns about the content, text or information contained within the body of this dictation should be directly addressed to the provider for clarification Total Time Total Time Spent Total Time Spent (In Minutes): 45 Total Time Includes: Examination of the Patient, Discharge Planning, Medication Reconciliation, Communication With Other Providers and Other Discharge Plan Discharge Items Patient Disposition: Transfer Inpatient Rehab Fac Reason For Visit: ACUTE BLOOD LOSS ANEMIA, HEMATURIA Discharge Diagnosis: Acute blood loss anemia Radiation cystitis Complicated urinary tract infection Decompensated FOFANA cirrhosis Acute kidney injury on CKD stage III Hyperkalemia Hypomagnesemia Chronic subdural hematoma Cervical stenosis Condition on Discharge: Fair Activity: Per Instructions section Exercise/Sports: Gradually increase as tolerated Non-emergency contact: Primary Care Provider, Esthetic[employer] and Urologist Call non-emergency contact if: you have any medication questions, your symptoms worsen, your pain is concerning for you and you have a fever Follow-up/Referrals: Kristen Vences DO [Primary Care Provider] - Diet: Carb Consistent or DM2 Addtl Attending Provider Instructions: --Follow-up with your primary care physician in 1 week upon discharge from rehab facility --Follow-up with your urologist Dr. 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 Pending Studies at Discharge: No Stand-Alone [facility]: [facility] Patient informed of condition?: Yes DNR: Yes Discharge Level of Care: Acute rehab Communicable Disease: No Discharge Prognosis: Stable Lines: None Urinary Catheter: Yes (Change every 4 weeks.) Medications and DC Order Prescriptions: Continued allopurinol 100 mg Tablet 200 mg PO QAM Qty: 30 0RF ciprofloxacin HCl 500 mg Tablet 500 mg PO QAM Qty: 30 0RF Rx Instructions: For SBP prophylaxis. insulin aspart U-100 100 unit/mL Solution 1 sliding scale dose SUBCUT USEASDIRECTD Qty: 10 0RF Rx Instructions: Glucose 80-150 (units): 0 Glucose 151-200 (units): 3 Glucose 201-250 (units): 6 Glucose 251-300 (units): 9 Glucose greater than 300 (units): 12 Glucose greater than 300 instructions: Give suggested insulin dose and call covering provider. Dose equals 1 unit of insulin per 8 grams of carbohydrate consumed. pantoprazole 40 mg tablet,delayed release (DR/EC) 40 mg PO BID Qty: 60 0RF zinc gluconate 50 mg Tablet 50 mg PO QAM Qty: 30 0RF furosemide 20 mg Tablet 20 mg PO HS Qty: 30 0RF finasteride 5 mg tablet 5 mg PO QAM Qty: 30 0RF duloxetine 30 mg capsule,delayed release(DR/EC) 30 mg PO QAM Qty: 30 0RF lactulose 10 gram/15 mL Solution 20 g PO BID 30 Days Qty: 1800 0RF solifenacin 5 mg tablet 5 mg PO QAM Qty: 30 0RF cholecalciferol (vitamin D3) 25 mcg (1,000 unit) Tablet 50 mcg PO QAM Qty: 30 0RF levocarnitine 1 gram/10 mL Solution 1 g PO BID Qty: 473 0RF Rx Instructions: administer with a meal/food; use an interval of 3-4 hours between doses during waking hours Xifaxan 550 mg tablet 550 mg PO BID Qty: 60 0RF Men's 50 Plus Multivitamin 400-20-370 mcg Tablet 1 tab PO QAM Qty: 30 0RF furosemide 40 mg Tablet 40 mg PO QAM Qty: 30 0RF Hold Instructions: Resume on 06/17/24. Hold day of and day after paracentesis Changed ferrous sulfate 325 mg (65 mg iron) Tablet 325 mg PO DAILY Qty: 30 0RF insulin glargine [Lantus Solostar U-100 Insulin] 100 unit/mL (3 mL) insulin pen 12 unit SUBCUT QAM Qty: 15 0RF Discontinued oxybutynin chloride 5 mg tablet 5 mg PO TID PRN (Reason: Bladder Spasms) spironolactone 100 mg Tablet 100 mg PO QAM Qty: 30 0RF Hold Instructions: Resume on 06/17/24. Hold for day of and day after paracentesis Discharge Orders: Discharge Order (Routine); Ordered 05/24/25 Ordered By: Marcus Velazquez/Other Patient Handouts: Managing Type 2 Diabetes Admission Data Admit Date/Time: 05/12/25 15:27 Attending Provider: Marcus Sheppard Admit Provider: Franko Villanueva Primary Care Provider: Kristen Vences Other Providers: [facility]; Tavo Paul; [facility],; Franko Villanueva; Karey Lee; Collin Donovan; Karey Schmid; Alex Vigil; Adam Galeana; Elijah Bear; Pedro Nicholson; Kimberly Fontaine; Jayy Alberto; Cecilio Go; Jeannie Sheridan; Raulito Torres; Lyn Nolasco; Tracie Pisano; Pedro Melchor; Cheyenne Alexander; Jerson Lockhart; Azul Payne; Ashwini Oneal
[2025-05-24 15:48] VITALS: PULSE 90
[2025-05-24] MEDS ORDERED: LANTUS PER UNIT CHARGE SC SCH (21:00)
== END 2025-05-24 18:20 | DRG 698 ==
LOC: ED 10:12 → SUATTDRO 15:27 → 4W 15:27 → 2W 05-20 22:42